=== PATIENT | male | born 1940 | race Caucasian/White ===

== ENCOUNTER 2021-12-15 13:00 | Outpatient (RCR) | payer MEDICARE, OTHER, SELFPAY ==
--- NOTE | 2021-11-26 10:15 | PT.OPEX ---
PT [place] Outpatient Eval PT [facility] Out[facility] Eval Start: 11/26/21 10:09 Freq: Status: Active Protocol: Document 11/26/21 10:09 MOISE (Rec: 11/26/21 10:11 MOISE [id number]) E-signed By Suhas Velasquez DPT, MS Physical Therapy Outpatient Evaluation Insurance Information Recert Due Date 02/24/22 Insurance Name Medicare B,[employer] Medical Diagnosis Generalized weakness/ deconditioning; stage 4 prostate cancer. Treating Diagnosis B LE and core weakness and deconditioning, decreased LS and LE flexibility and imbalance Subjective Subjective Pt is an 81 y.o. male who presents to PT with c/o chronic B (L>R) hip tightness, imbalance, deconditioning and LE weakness following treatment for stage 4 prostate CA with bladder and prostate beginning 03/11/2020. Had multiple rounds of intense chemo and radiation with continued oral chemo and hormone injections which have resulted in fatigue and B hip/ LS tightness. Has resumed yardwork and walking short distances with high levels of fatigue. Has a recumbent bike at home but has not used recently. Successful OT rx for LE lymphedema. Pt highly motivated to improve activity levels at an appropriate level as he was very active prior to CA treatment. PMH includes HTN. AGGR factors: all daily activities, lifting, carrying objects, walking, standing, stairs. ALLEV factors: rest, movement. Pain Comments 0-2/10 B hips Current Work Status Retired Objective Functional Test Performed & Score LEFS 18 Assessment Assessment/Impression Objectively pt displays B LE and core weakness and deconditioning, decreased B LS and LE flexibility and imbalance. Stable gait pattern without an AD with decreased velocity and increased B stride length. Emphasized importance of not pushing exercise and daily activities through fatigue or pain due to fatigue levels. He responded well to introduction to supine , seated and standing exercises with fatigue and minimal B hip pain following. He will benefit greatly from continued skilled therapy to address these limitations. Primary Functional Limitations All daily activities, lifting, carrying objects, walking, standing, stairs Plan of Care Rehabilitation Potential Excellent Physical Therapy Goals Short-term goals to be completed in 4 weeks 1. Pt will display improved B LE strength as evidenced by performing >12 SLR of good quality to improve quality of gait 2. Pt will be able to walk >8 min without elevation in sxs to improve cardiovascular health. Long-term goals to be completed in 12 weeks 1.Pt will be independent and compliant with HEP 2.Pt will display improved abdominal, B hip ABD and ext strength >/= 4+/5 to improve quality of gait and stair climbing. 3.Pt will be able to return to biking >15 minutes with no elevation in sxs to improve cardiovascular health. 4.Pt will report >75% in LEFS questionnaire to significantly improve tolerance to functional activities. Coordination/Communication With Referral Source Treatment Plan/Direct Interventions Joint Mobilization,Manual Therapy,Neuromuscular Re-ed, Therapeutic Exercises Frequency/Duration 1x per week for 4-8 visits, decreasing frequency as able. Patient Will Be Discharged From Therapy Completion of LTG(s),Skills Plateau,Independent w/HEP, Independently Progressing Evaluation Billing Untimed Code Treatment Minutes 22 Complexity Moderate Certification Information Initial Certification Date 11/26/21 Ending Certification Date 02/24/22 Provider Signature Shows Agreement With POC & Medical Necessity Physician Comment/Change Comment or Changes Physician NPI Number #
== END 2022-08-03 13:50 | disposition home or self-care (01) ==
PROVIDERS: PCP Family Medicine; Visit Provider Internal Medicine Hematology & Oncology
DX: I89.0 Lymphedema, not elsewhere classified (principal); Z51.89 Encounter for other specified aftercare
CPT/HCPCS: 97110; 97162; 97530; 97535

== ENCOUNTER 2022-02-08 17:55 | Emergency (ER) | payer MEDICARE, OTHER, SELFPAY ==
[2022-02-08 18:11] VITALS: BP 147/83; PULSE 71; RESP 16; TEMP 36.1; O2SAT 97; BMI 27.3
--- NOTE | 2022-02-08 19:10 | ED.NURSE ---
was obviously uncomfortable as he has not voided since this am (0700) before procedure. # 16 fr jon catheter was placed had bloody drainage noted. urine was red wine colored. had approx 600 ml. did feel better after this was placed.
[2022-02-08 20:05] LABS: Appearance Urine Slightly Cloudy (Clear); Bilirubin Urine 2+ (Negative); Blood Urine 3+ (Negative); Color Urine Red (Yellow); Glucose Urine Negative (Negative); Ketones Urine 1+ (Negative); Leukocyte Esterase Urine 3+ (Negative); Nitrite Urine Positive (Negative); Protein Urine 3+ (Negative); pH Urine 6.5 (5.0-8.5)
[2022-02-08 20:10] LABS: RBC Urine >100 (0-2)
[2022-02-08 20:11] LABS: Bacteria Urine Many; WBC Urine >100 (0-5)
[2022-02-08 20:12] VITALS: BP 158/85; PULSE 64; RESP 18; O2SAT 98
--- OUTSIDE RECORDS SUMMARY | 2022-02-08 20:12 | XMS_ITS | Encounter Summary ---
:1940 Author Organization [place] Address [address] [place] [address]. [place] [address] Care Team Providers Name Role Phone No Ref-Primary, Physician Primary Care Provider [phone] Reason for Visit Auth/Cert (Routine) Specialty Diagnoses / Procedures Referred By Contact Refer red To Contact Surgery Diagnoses Hydronephrosis Hydronephrosis [N13.30] Sh Periop Services Procedures HC CYSTO/URETERO W/LITHOTRIPSY &INDWELL STENT INSRT CYSTOSCOPY, RIGHT URETEROSCOPY, HOLMIUM LASER LITHOTRIPSY, RIGHT URETERAL STENT EXCHANGE [address], [address] [place] [address] Phone: Referral ID Status Reason Start Date Expiration Date Visits Requ ested Visits Authorized [id number] 1 1 Encounter Details Date Type Department Care Team Description 02/08/2022 Surgery [facility] Nicola Ware CYSTOSCOP Y, RIGHT [place] [facility] MD [place] RETROGRADE PYELOGRAM, Services [facility] URETHERAL DILATION, [address], [address] [facility] [place] [address] RIGHT URETERAL STENT [address] [place] [address] [place] [address] [phone] Surgery Details Date/Time Status Location OR Service Patient Case Class Case Tr auma Class Type Case? 02/08/22 9:10 Posted OR OR 19 Urology Same Day AM Surgery Panel 1 Procedure LRB Anes Op Region Wound Class Commen ts CYSTOSCOPY, RIGHT RETROGRADE Right General Urethra II-Malu n Contaminated PYELOGRAM, URETHERAL DILATION, RIGHT URETERAL STENT EXCHANGE Surgeon Surgeon Role Service Panel Nicola Ware MD Primary Urology 1 Special Needs LARGE C-ARM, HOLMIUM LASER, FLEXIBLE URE THEROSCOPE documented in this encounter Social History Tobacco Use Types Packs/Day Years Used Date Smoking Tobacco: Never Smokeless Tobacco: Never Tobacco Cessation: Counseling Given: Not Answered Alcohol Use Standard Drinks/Week Comments Not Currently 0 (1 standard drink = 0.6 oz pure alcoho l) Sex Assigned at Date Recorded Not on file COVID-19 Exposure Response Date Recorded In the last 10 days, have you been in contact with No / Unsu re 02/08/2022 7:59 AM CDT someone who was confirmed or suspected to have Coronavirus/COVID-19? documented as of this encounter Last Filed Vital Signs Vital Sign Reading Time Taken Comments Blood Pressure 155/84 02/08/2022 11:00 AM CDT Pulse 58 02/08/2022 11:00 AM CDT Temperature 36.1 ??C (97 ??F) 02/08/2022 11:00 AM CDT Respiratory Rate 16 02/08/2022 11:00 AM CDT Oxygen Saturation 98% 02/08/2022 11:00 AM CDT Inhaled Oxygen Concentration - - Weight 86.2 kg (190 lb 1.6 oz) 02/08/2022 7:50 AM CDT Height 177.8 cm (5' 10) 02/08/2022 7:50 AM CDT Body Mass Index 27.28 02/08/2022 7:50 AM CDT documented in this encounter Discharge Instructions Discharge InstructionsRae Colmenares RN - 02/08/2022 10:14 AM CDT Same Day Surgery Discharge Instructions for Sedation and General Anesthesia It's not unusual to feel dizzy, light-headed or faint for up to 24 hours after surgery or while taking pain medication. If you have these symptoms: sit for a few minutes before standing and have someone assist you when you get up to walk or use the bathroom. You should rest and relax for the next 24 hours. We recommend you make arrangements to have an adultstay with you for at least 24 hours after your discharge. Avoid hazardous and strenuous activity. DO NOT DRIVE any vehicle or operate mechanical equipment for 24 hours following the end of your surgery. Even though you may feel normal, your reactions may be affected by the medication you have received. Do not drink alcoholic beverages for 24 hours following surgery. Slowly progress to your regular diet as you feel able. It's not unusual to feel nauseated and/or vomit after receiving anesthesia. If you develop these symptoms, drink clear liquids (apple juice, elly enrrique, broth, 7-up, etc. ) until you feel better. If your nausea and vomiting persists for 24 hours, please notify your surgeon. All narcotic pain medications, along with inactivity and anesthesia, can cause constipation. Drinking plenty of liquids and increasing fiber intake will help. For any questions of a medical nature, call your surgeon. Do not make important decisions for 24 hours. If you had general anesthesia, you may have a sore throat for a couple of days related to the breathing tube used during surgery. You may use Cepacol lozenges to help with this discomfort. If it worsens or if you develop a fever, contact your surgeon. If you feel your pain is not well managed with the pain medications prescribed by your surgeon, please contact your surgeon's office to let them know so they can address your concerns. ZULEIKA Ware at bedside, pt ok to start Plavix tomorrow AttachmentsThe following attachments cannot be sent through Care Everywhere. Stents, Ureteral (Ivorian)documented in this encounter Medications at Time of Discharge Medication Sig Dispensed Refills Start Date End Date amLODIPine (NORVASC) 10 Take 10 mg by mouth 0 MG tablet daily cefuroxime (CEFTIN) 500 Take 1 tablet (500 10 tablet 0 01/1102/13/2022 MG tabletIndications: mg) by mouth 2 times Hydronephrosis with daily for 5 days urinary obstruction due to ureteral calculus clopidogrel (PLAVIX) 75 Take 75 mg by mouth 0 MG tablet daily co-enzyme Q-10 100 MG Take 100 mg by mouth 0 CAPS capsule daily enzalutamide (XTANDI) 40 Take 80 mg by mouth 0 MG capsule daily metoprolol succinate ER Take 50 mg by mouth 0 (TOPROL XL) 50 MG 24 hr daily tablet mirabegron (MYRBETRIQ) 25 Take 25 mg by mouth 0 MG 24 hr tablet daily nitroGLYcerin (NITROSTAT) Place 0.4 mg under 0 0.4 MG sublingual tablet the tongue every 5 minutes as needed for chest pain For chest pain place 1 tablet under the tongue every 5 minutes for 3 doses. If symptoms persist 5 minutes after 1st dose call 911. phenazopyridine Take 1 tablet (100 9 tablet 0 02/08/2022 (PYRIDIUM) 100 MG mg) by mouth 3 times tabletIndications: daily as needed for Hydronephrosis with urinary tract urinary obstruction due discomfort to ureteral calculus rivaroxaban ANTICOAGULANT Take 10 mg by mouth 0 (XARELTO) 10 MG TABS daily (with dinner) tablet rosuvastatin (CRESTOR) 40 Take 40 mg by mouth 0 MG tablet daily tamsulosin (FLOMAX) 0.4 Take 0.4 mg by mouth 0 MG capsule daily vitamin D3 Take 1 tablet by 0 (CHOLECALCIFEROL) 50 mcg mouth daily (2000 units) tablet documented as of this encounter H&P Notes Chinyere Tijerina MD - 02/08/2022 8:13 AM CDT I have reviewed the surgical (or preoperative) H&P that is linked to this encounter, and examined the patient. There are no significant changes Source Note - Outside, Provider - 02/03/2022 11:56 AM CDT documented in this encounter Nursing Notes Rafia Oleary RN - 02/08/2022 8:34 AM CDT Pt took Xarelto 10 days ago, pt unsure of when he last took his Plavix. Dr. Ware notified, ok to proceed. BREAKFAST COOK notified. Rafia Oleary RN - 02/08/2022 8:32 AM CDT Patient brought a picture of home covid antigen test on phone as directed. I personally saw this result and it was time stamped 02/07/2022 at 1821. Result was negative. documented in this encounter Miscellaneous Notes Op Note - Nicola Ware MD - 02/08/2022 9:27 AM CDT OPERATIVE REPORT PATIENT: José Miguel Vega : 1940, AGE: [age] year old SSN: (Not on file) SURGEON Nicola Ware MD Waist Cutter: Tomas Hampton RN Coin Teller: Darby Delaney RN Scrub Person: Barbara Hunt RN PREOP DIAGNOSIS: Right Hydronpehrosis POSTOP DIAGNOSIS: Same Procedure(s): URETHERAL DILATION CYSTOSCOPY RIGHT RETROGRADE PYELOGRAM RIGHT URETERAL STENT EXCHANGE ANESTHESIA General COMPLICATIONS: None FINDINGS Tight fossa navicularis but easily dilated to allow passage of the rigid cystoscope. 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 Minimal encrustation despite retained stent. SPECIMEN 1. Previous 6 Central African by 26 cm ureteral stent IMPLANT 1. Right-sided 6 Central African by 26 cm ureteral stent EBL 10 cc TECHNIQUE After informed consent was obtained within the preoperative care unit the patient was transferred tothe operative theater in stable condition. There he was transferred from his [facility] to the operative table and placed in supine position. Bilateral lower extremity sequential compression devices were applied and perioperative antibiotic prophylaxis was undertaken with cefazolin. After appropriate induction of general anesthesia the patient was repositioned to the dorsal lithotomy position bilateral lower extremities in Aleksey stirrups. His genitalia was then prepped and draped in the usual sterile fashion utilizing Betadine. At this point a surgical timeout was performed with all those in at tendance agreeing correct patient, procedure, and laterality. Initial attempt to advance the 22 [place] African rigid cystoscope proved unsuccessful due to stenosis of thefossa navicularis. Therefore I utilized Urethral sounds to dilate from 18 Central African to 26 Central African which easily allowed cystoscope to pass. A 22F rigid cystoscope was advanced to the level of the urinary bladder under direct visualization. No intraurethral masses or lesions were identified. The prostate was noted to be atrophied compared to previous and bilobar. Upon entry into the bladder, it was decompressed and re-evaluated under sterile saline irrigation. Bilateral ureteral orifices were identified within the orthotopic position. There were grade 1 trabeculations, no stones, and stent irritation were identified. The previously placed stent was noted to be emanating from the right ureteral orifice. Minimal encrustation along the intravesical loop. I then turned my attention to the right ureteral orifice. A Sensor guidewire was advanced proximallyunder fluoroscopic guidance adjacent to the previously placed ureteral stent. The scope was removed after emptying the bladder and readvanced. A toothed stent grasper was then used to secure the distalcurl and to remove it to the level of the urethral meatus under live fluoroscopic guidance. The proximal curl easily unraveled with no evidence of significant encrustation. A second sensor wire was then passed through the cannula of the stent and curled within the renal pelvis. The stent was removed and inspected with no evidence of damage. An open-ended catheter was then advanced over one of the wires to perform a retrograde pyelogram. On driller brake lining imaging there were no stones visible. Upon instillation of contrast no filling defects were seen though moderate persistent hydronephrosis was observed, sodecision was made to replace the ureteral stent. The remaining Sensor guidewire was back-loaded into the cystoscope. A new 6F x 26 cm ureteral stent was then deployed using a combination of direct vision and fluoroscopic guidance so that a generous curl was created within the renal pelvis and distal curl within the urinary bladder. The bladder was decompressed thus concluding the case. Patient tolerated the procedure well and without complication. EBL was 10 ml and all surgical counts were correct. The patient was repositioned to a supine position before being awoken from general anesthesia transferred back to his [facility] and discharged to the postanesthesia care unit in stable condition. PLAN Patient to be discharged home. We will plan to bring him back to the OR in 3 to 6 months for a retrograde pyelogram stent removal versus replacement. Nicola Ware MD [facility] Pager: [phone] Office: [phone] Surgical [phone] documented in this encounter Plan of Treatment Not on filedocumented as of this encounter Procedures Procedure Name Priority Date/Time Associated Diagnosis Comme nts XR SURGERY SAMANTA Routine 02/08/2022 9:45 AM Result s for this FLUORO LESS THAN 5 CDT procedure are in MIN W STILLS the results section. CYSTOURETEROSCOPY, 02/08/2022 8:58 AM Hydronephrosis WITH LITHOTRIPSY CDT USING LASER AND URETERAL STENT INSERTION Special Needs LARGE C-ARM, HOLMIUM LASER, FLEXIBLE URETHEROSCOPE documented in this encounter Results XR Surgery SAMANTA Fluoro Less Than 5 Min w Stills (02/08/2022 9:45 AM CDT) Anatomical Region Laterality Modality Abdomen/Pelvis Radio Fluoroscopy Specimen (Source) Anatomical Location Collection Method / Collectio n Time Received Time / Laterality Volume Impressions 02/08/2022 11:43 AM CDT IMPRESSION: Right ureteral stent in good position. Moderate hydronephrosis. No extravasation. EVELIA CROOK MD Narrative 02/08/2022 11:43 AM CDT SURGERY C-ARM FLUORO LESS THAN 5 MIN W STILLS February 08, 2022 9:45 AM HISTORY: Right retrograde and stent repl acement. COMPARISON: None. NUMBER OF IMAGES ACQUIRED: Three. VIEWS: One. FLUOROSCOPY TIME: .4 minute(s) Procedure Note Evelia Crook MD - 02/08/2022Fo rmatting of this note might be different from the original. SURGERY C-ARM FLUORO LESS THAN 5 MIN W S TILLS February 08, 2022 9:45 AM HISTORY: Right retrograde and stent repl acement. COMPARISON: None. NUMBER OF IMAGES ACQUIRED: Three. VIEWS: One. FLUOROSCOPY TIME: .4 minute(s) IMPRESSION: Right ureteral stent in good position. Moderate hydronephrosis. No extravasation. EVELIA CROOK MD Nicola Ware MD [facility]AG[facility] ORDER JUAN M documented in this encounter Visit Diagnoses Diagnosis Hydronephrosis with urinary obstruction due to ureteral calculus - Primary Hydronephrosis documented in this encounter Administered Medications Inactive Administered Medications - up to 3 most recent administrations Medication Order MAR Action Action Date Dose Rate Site acetaminophen (TYLENOL) tablet 650 mg 650 mg, Oral, ONCE PRN, mild pain, to mo derate pain, Starting on 02/08/22 at 1012, One time prior to discharge. Maxim um acetaminophen dose from all sources = 75 mg/kg/day not to exceed 4 grams/day. hydrOXYzine (ATARAX) tablet 10 mg 10 mg, Oral, ONCE PRN, anxiety, associat ed with pain or itching , Starting on Tue02/08/22 at 1012, For 1 dose, One time prior to discha rge iopamidol ([id number]) Given 02/08/2022 10:00 AM 12 mLs Operative Site/Surgical solution CDT Site PRN, Starting on Tue02/08/22 at 1000, Intra-procedure lactated ringers infusion Restarted 02/08/2022 9:08 AM CDT at 25 mL/hr, Intravenous, CONTINUOUS, IF patient NOT on dialysis., Pre-procedure, Starting on Tue02/08/22 at 0800, Until Tue02/08/22 at 1000 New Bag 02/08/2022 8:13 AM CDT 25 mL/hr lidocaine (XYLOCAINE) 2 % Given 02/08/2022 9:47 AM 1 Tube Operative Site/Surgical external gel CDT Site PRN, Starting on Tue02/08/22 at 0947, Intra-procedure documented in this encounter Active and Recently Administered Medications Times are shown in CDT. Scheduled Medication Order 02/06/2022 02/07/2022 02/08/2022 ceFAZolin Sodium (ANCEF) injection 2 g (COMPLETED) 0908 (Given - Provider: Rabia Durham APRN CRNA) Routine, 2 g, Intravenous, PRE-OP/PRE-ND OCEDURE, Starting on Tue02/08/22 at 0739, For 1 dose, Give first dose within 1 hour PRIOR to incision. If patient weight is greater than or equal to 120 kg incre ase dose to 3 g., Indications: Perioperative Pharmacop rophylaxis, Pre-procedure Continuous Medication Order 02/06/2022 02/07/2022 02/08/2022 lactated ringers infusion (CANCELED) 0813 (New Bag - Provider: Rafia Oleary RN)0907 (Paused - Provider: Rabia Durham APRN CRNA - Comment: Switch to gravity)0908 (Restarted - Provider: Rabia Durham APRN CRNA)0949 (Anesthesia Volume Adjustment - Provider: Rabia Durham APRN CRNA) at 25 mL/hr, Intravenous, CONTINUOUS, IF patient NOT on dialysis., Pre- procedure, Starting on Tue02/08/22 at 0800, Until Tue02/08/22 at 1000 PRN Medication Order 02/06/2022 02/07/2022 02/08/2022 acetaminophen (TYLENOL) tablet 650 mg 650 mg, Oral, ONCE PRN, mild pain, to mo derate pain, Starting on Tue02/08/22 at 1012, One time prior to discharge. Maximum acetaminophen dose from all sources = 75 mg/kg/day not to exceed 4 grams/day. hydrOXYzine (ATARAX) tablet 10 mg 10 mg, Oral, ONCE PRN, anxiety, associat ed with pain or itching , Starting on Tue02/08/22 at 1012, For 1 dose, One time prior to discharge iopamidol ([id number]) solution 1000 (Given - Provider: Nicola Ware MD) PRN, Starting on Tue02/08/22 at 1000, Intra-procedure lidocaine (XYLOCAINE) 2 % external gel (CANCELED) 0947 (Given - Provider: Nicola Ware MD) PRN, Starting on Tue02/08/22 at 0947, Intra-procedure documented in this encounter Care Teams Warp Tier Relationship Specialty Start Date End Date No Ref-Primary, Physician PCP - General 02/08/22 documented as of this encounter
--- OUTSIDE RECORDS SUMMARY | 2022-02-08 20:12 | XMS_ITS | Encounter Summary ---
:1939 Author Organization [facility] Address [address] [place] [address] Care Team Providers Name Role Phone Unavailable Primary Care Provider Unavailable Encounter Details Date Type Department Care Team Description 04/28/2020 Documentation Department of Radiation Swetha Soto, Oncology in [place], [place]., M.S. [place] [address] [facility] [address] [place] [phone] [phone] (Wo rk) Social History Tobacco Use Types Packs/Day Years Used Date Smoking Tobacco: Never Assessed Sex Assigned at Date Recorded Not on file documented as of this encounter Miscellaneous Notes Radiation Completion Notes - Swetha Soto P.A.-C., M.S. - 04/28/2020 11:59 PM CST DIAGNOSIS: 1. Primary Malignant Neoplasm Of Prostate (HCC) Attending Physician: Tereso Frazier M.D. ([id number]) Treatment Intent: Palliative Concomitant Therapy: Hormonal Therapy Single Plan Treatment Course: 1x Pelvis Plan ID Fractions Dose / Fraction (cGy) Dose Treated (cGy) Dose Planned (cGy) First Treatment Last Treatment Elapsed Days F1 prost, LNs 300 6000 6000 03/27/2020 04/28/2020 32 Course Summary 03/27/2020 04/28/2020 32 Radiation Modality: Photons CLINICAL SUMMARY Mr. Kalen Vega completed radiation treatment as planned with interruptions of 1 day due to weather. The course of treatment was tolerated well and with anticipated side effects. The patient experienced toxicities of grade 1 diarrhea, fecal incontinence, proctitis, urinary frequency, urinary inconti nence, and urinary urgency during radiation treatment. TREATMENT RESPONSE: Response to treatment will be determined by post-treatment imaging and/or laboratory work. RECOMMENDED FOLLOW UP: Primary Medical Oncologist. He has follow-up scheduled with Dr. Tan on May 07, 2020. Signed by: Swetha Soto P.A.-C., M.S., 04/29/2020 4:17 PM TENTERER [facility] [address] [place] [address] ERER documented in this encounter Plan of Treatment Not on filedocumented as of this encounter Visit Diagnoses Diagnosis Primary Malignant Neoplasm Of Prostate ( HCC) - Primary documented in this encounter
--- OUTSIDE RECORDS SUMMARY | 2022-02-08 20:12 | XMS_ITS | Encounter Summary ---
:1939 Author Organization [facility] Address [address] [place] [address] Care Team Providers Name Role Phone Unavailable Primary Care Provider Unavailable Reason for Visit Reason Comments Med Refill Encounter Details Date Type Department Care Team Description 04/14/2020 Refill Department of Radiation Swetha Soto P.A .-C., Med Refill Oncology in [facility] [address] [facility] [address] [place] [address] [place] [address] [phone] Social History Tobacco Use Types Packs/Day Years Used Date Smoking Tobacco: Never Assessed Sex Assigned at Date Recorded Not on file documented as of this encounter Plan of Treatment Not on filedocumented as of this encounter Visit Diagnoses Not on filedocumented in this encounter
--- OUTSIDE RECORDS SUMMARY | 2022-02-08 20:12 | XMS_ITS | Encounter Summary ---
:1939 Author Organization [facility] Address [address] [place] [address] Care Team Providers Name Role Phone Unavailable Primary Care Provider Unavailable Reason for Visit Radiation Therapy (Routine) - Closed Specialty Diagnoses / Procedures Referred By Contact Refer red To Contact Diagnoses Primary Malignant Neoplasm Of Prostate (HCC) Tereso Frazier M.D. [facility] Procedures Prior Auth Rad Tx [place] IMRT SIMPLE [address] [place] [address] Referral ID Status Reason Start Date Expiration Date Visits Requ ested Visits Authorized [id number] Closed 03/21/2020 03/21/2021 20 20 Encounter Details Date Type Department Care Team Description 04/08/2020 Hospital Encounter Department of Radiation Alisha Frazier, Oncology in [place] [address] [facility] [address] [place] [phone] Social History Tobacco Use Types Packs/Day Years Used Date Smoking Tobacco: Never Assessed Sex Assigned at Date Recorded Not on file documented as of this encounter Medications at Time of Discharge Medication Sig Dispensed Refills Start Date End Date amLODIPine (NORVASC) 10 mg Take 10 mg by 0 2019 tablet mouth. aspirin [address] tablet Take 81 mg by mouth 0 daily. atorvastatin (LIPITOR) 40 mg TK 1 T PO QHS 0 10/0 05/2019 tablet bicalutamide (CASODEX) 50 mg TK 1 T PO D 0 2019 tablet clopidogreL (PLAVIX) 75 mg TK 1 T PO QD 0 020 tablet metoprolol succinate Take 50 mg by 0 11/02/2019 (TOPROL-XL) 50 mg 24 hr mouth. tablet nitroglycerin (NITROSTAT) Place 0.4 mg under 0 0.4 mg SL tablet the tongue. documented as of this encounter Plan of Treatment Not on filedocumented as of this encounter Visit Diagnoses Not on filedocumented in this encounter
--- OUTSIDE RECORDS SUMMARY | 2022-02-08 20:12 | XMS_ITS ---
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 on 03/21/2020 Current Oncology Plans No current plan information found. Past Plans No past plan information found. Radiation Treatments Plan Last Treated Elapsed Days Fractions Prescribed Prescribed Total On Treated Fraction Dose Dose F1 prost, 04/28/2020 32 20 of 20 300 cGy 6,000 cGy LNs Reference Point Last Treated On Elapsed Days Session Dose Total Dos e [id number] 04/28/2020 32 300 cGy 6,000 cGy
--- OUTSIDE RECORDS SUMMARY | 2022-02-08 20:12 | XMS_ITS | Encounter Summary ---
:1939 Author Organization [facility] Address [address] [place] [address] Care Team Providers Name Role Phone Unavailable Primary Care Provider Unavailable Encounter Details Date Type Department Care Team Description 04/28/2020 Hospital Encounter Department of Radiation Alisha Frazier, Oncology in [facility] [address] [facility] [address] [place] [phone] [phone] Social History Tobacco Use Types Packs/Day Years Used Date Smoking Tobacco: Never Assessed Sex Assigned at Date Recorded Not on file documented as of this encounter Medications at Time of Discharge Medication Sig Dispensed Refills Start Date End Date amLODIPine (NORVASC) 10 Take 10 mg by 0 0 mg tablet mouth. aspirin [address] tablet Take 81 mg by mouth 0 daily. atorvastatin (LIPITOR) 40 TK 1 T PO QHS 0 020 mg tablet bicalutamide (CASODEX) 50 TK 1 T PO D 0 0 mg tablet clopidogreL (PLAVIX) 75 TK 1 T PO QD 0 12/27/2019 mg tablet metoprolol succinate Take 50 mg by 0 11/02/2019 (TOPROL-XL) 50 mg 24 hr mouth. tablet nitroglycerin (NITROSTAT) Place 0.4 mg under 0 0.4 mg SL tablet the tongue. tamsulosin (FLOMAX) 0.4 Take 1 capsule (0.4 30 capsule 0 07/202005/12/2020 mg 24 hr capsule mg total) by mouth daily. documented as of this encounter Plan of Treatment Not on filedocumented as of this encounter Visit Diagnoses Not on filedocumented in this encounter
--- OUTSIDE RECORDS SUMMARY | 2022-02-08 20:12 | XMS_ITS | Encounter Summary ---
:1939 Author Organization [facility] Address [address] [place] [address] Care Team Providers Name Role Phone Unavailable Primary Care Provider Unavailable Reason for Referral Radiation Therapy (Routine) - Canceled Specialty Diagnoses / Procedures Referred By Contact Refer red To Contact Diagnoses Primary Malignant Neoplasm Of Prostate (HCC) Tereso Frazier M.D. [facility] Procedures Management Visit [address] [place] [address] Referral ID Status Reason Start Date Expiration Date Visits V isits Requested Authorized [id number] Canceled 03/21/2020 03/21/2021 1 1 BILITATION INSPECTOR Reason for Visit Radiation Therapy (Routine) - Canceled Specialty Diagnoses / Procedures Referred By Contact Refer red To Contact Diagnoses Primary Malignant Neoplasm Of Prostate (HCC) Tereso Frazier M.D. [facility] Procedures Management Visit [address] [place] [phone] Referral ID Status Reason Start Date Expiration Date Visits V isits Requested Authorized [id number] Canceled 03/21/2020 03/21/2021 1 1 Encounter Details Date Type Department Care Team Description 04/09/2020 Hospital Encounter Department of Tereso Frazier Malignant Radiation Oncology [place]ver[place] Wray Neoplasm Of Prostate in [place], [address] [facility] (HCC) [place], [place] [address] [facility] [address] [place], [place] [phone] (Work) [phone] Social History Tobacco Use Types Packs/Day Years Used Date Smoking Tobacco: Never Assessed Sex Assigned at Date Recorded Not on file documented as of this encounter Last Filed Vital Signs Vital Sign Reading Time Taken Comments Blood Pressure - - Pulse - - Temperature 36.6 ??C (97.8 ??F) 04/09/2020 10:45 AM REHABILITATION INSPECTOR Respiratory Rate - - Oxygen Saturation - - Inhaled Oxygen Concentration - - Weight 86 kg (189 lb 9.5 oz) 04/09/2020 10:45 AM REHABILITATION INSPECTOR Height - - Body Mass Index 27.3 03/21/2020 8:19 AM REHABILITATION INSPECTOR documented in this encounter Medications at Time of Discharge Medication Sig Dispensed Refills Start Date End Date amLODIPine (NORVASC) 10 mg Take 10 mg by 0 2019 tablet mouth. aspirin [address] tablet Take 81 mg by mouth 0 daily. atorvastatin (LIPITOR) 40 mg TK 1 T PO QHS 0 05/2019 tablet bicalutamide (CASODEX) 50 mg TK 1 T PO D 0 2019 tablet clopidogreL (PLAVIX) 75 mg TK 1 T PO QD 0 020 tablet metoprolol succinate Take 50 mg by 0 11/02/2019 (TOPROL-XL) 50 mg 24 hr mouth. tablet nitroglycerin (NITROSTAT) Place 0.4 mg under 0 0.4 mg SL tablet the tongue. documented as of this encounter Progress Notes Swetha Soto P.A.-C., M.S. - 04/09/2020 10:45 AM CST SUBJECTIVE REASON FOR VISIT Evaluation for side effects while receiving radiation treatment for 1. Primary Malignant Neoplasm Of Prostate (HCC) SUPERVISED BY: Tereso Frazier M.D. ([phone]) HISTORY OF PRESENT ILLNESS Mr. Kalen Vega is an 79-year-old male with locally advanced prostate cancer. Treatment Course: 1x Pelvis Plan ID Fractions Dose / Fraction (cGy) Dose Treated (cGy) Dose Planned (cGy) First Treatment Last Treatment Elapsed Days F1 prost, LNs 300 2700 6000 03/27/2020 04/09/2020 13 Course Summary 03/27/2020 04/09/2020 13 The patient was seen and examined today with Dr. Frazier. The patient reports doing well overall. He denies fatigue. He is however experiencing persistent andincreased diarrhea. He reports 5-6 bowel movements during the day and 3 at night. He has fecal incontinence during the evening. He reports that the stool is watery or loose. The diarrhea started when the patient started radiation treatment. He has taken Imodium one tablet twice at night without benefit. He is not taking Imodium during the day as he is able to use the restroom during those times. He is also eating Activia yogurt. He reports increased urinary frequency as well, especially after treatment each day. He denies dizziness or lightheadedness. He is eating and drinking well overall. PATIENT REPORTED SYMPTOM SCREEN FATIGUE (Scale: 0 = no fatigue; 10 = worst fatigue you can imagine): 0 PAIN (Scale: 0 = no pain; 10 = worst pain you can imagine): 0 OVERALL QUALITY OF LIFE (Scale: 0 = as bad as can be; 10 = as good as can be): 9 OBJECTIVE Temp 36.6 ??C (Temporal) Wt 86 kg BMI 27.30 kg/m?? PHYSICAL EXAM General: Alert and oriented in no apparent distress. 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 Androgen deprivation therapy initiated on March 18, 2020 with Eligard and bicalutamide with a plan for the addition of Xtandi 4. Radiation therapy initiated on March 27, 2020; anticipated completion on April 25, 2020 The patient is tolerating radiation treatment well overall. He has experienced increased diarrhea aswell as urinary frequency with treatment. We discussed increasing his use of Imodium today. He has Imodium 2 mg tablets and the maximum is 16 mg/day. Dr. Frazier recommended taking two tablets at bedtime followed by one tablet after subsequent episodes of diarrhea, including during the day, to help get the diarrhea under control. The patient was educated on signs and symptoms of dehydration today. He was encouraged to continue with good nutritional and fluid intake. He is scheduled to start Xtandi on April 25, 2020 under the care of Dr. Tan; however, he might need 1-2 weeks of recovery after radiation treatment first. We will discuss this with his providers at the [facility]. We will schedule a nurse visit on Tuesday to re-evaluate his diarrhea. He will continue with radiation treatment as planned. Signed by: Swetha Soto P.A.-C., M.S. 04/09/2020 11:12 AM REHABILITATION INSPECTOR BILITATION INSPECTOR Associated attestation - Tereso Frazier M.D. - 04/09/2020 5:33 PM REHABILITATION INSPECTOR I saw and evaluated the patient and participated in the henderson portions of the service. I reviewed the documentation of Swetha Soto P.A.-C. and agree with the findings and plan. The patient appears well onexam. His right lower extremity swelling is decreasing. He does have loose stools. Encouraged him toincrease his Imodium usage. He is also scheduled to begin Xtandi on April 25, 2020 at the very endof his radiation treatment. He may need another week or 2 after this for recovery before initiation of Xtandi. I will leave this up to Dr. Tan. He will continue with treatment as planned. Signed by: Tereso Frazier M.D. 04/09/20 5:33 PM REHABILITATION INSPECTOR [facility] [place] documented in this encounter Miscellaneous Notes Addendum Note - Cherri Ng - 04/09/2020 10:45 AM REHABILITATION INSPECTOR Encounter addended by: Cherri Ng on: 04/14/2020 7:41 AM Actions taken: Letter saved BILITATION INSPECTOR documented in this encounter Plan of Treatment Scheduled Orders Name Type Priority Associated Diagnoses Order S chedule Management Visit Radiation Oncology Routine Primary Malignant Once for 1 Neoplasm Of Prostate Occurre nces starting (HCC) 04/09/2020 unti l 04/09/2020 documented as of this encounter Visit Diagnoses Diagnosis Primary Malignant Neoplasm Of Prostate ( HCC) documented in this encounter
--- OUTSIDE RECORDS SUMMARY | 2022-02-08 20:12 | XMS_ITS | Encounter Summary ---
:1939 Author Organization [facility] Address [address] [place] [address] Care Team Providers Name Role Phone Unavailable Primary Care Provider Unavailable Reason for Visit Radiation Therapy (Routine) - Closed Specialty Diagnoses / Procedures Referred By Contact Refer red To Contact Diagnoses Primary Malignant Neoplasm Of Prostate (HCC) Tereso Frazier M.D. [facility] Procedures Prior Auth Rad Tx [place] IMRT SIMPLE [address] [place] [address] Referral ID Status Reason Start Date Expiration Date Visits Requ ested Visits Authorized [id number] Closed 03/21/2020 03/21/2021 20 20 Encounter Details Date Type Department Care Team Description 04/21/2020 Hospital Encounter Department of Radiation Alisha Frazier, [place]cology in [place] [address] [facility] [address] [place] [phone] Social History Tobacco Use Types Packs/Day Years [...]
--- OUTSIDE RECORDS SUMMARY | 2022-02-08 20:12 | XMS_ITS | Encounter Summary ---
:1939 Author Organization [facility] Address [address] [place] [address] Care Team Providers Name Role Phone Unavailable Primary Care Provider Unavailable Reason for Referral Radiation Therapy (Routine) - Canceled Specialty Diagnoses / Procedures Referred By Contact Refer red To Contact Diagnoses Primary Malignant Neoplasm Of Prostate (HCC) Tereso Frazier M.D. [facility] Procedures Management Visit [address] [place] [phone] Referral ID Status Reason Start Date Expiration Date Visits V isits Requested Authorized [id number] Canceled 03/21/2020 03/21/2021 1 1 SHOE WORKER Reason for Visit Radiation Therapy (Routine) - Canceled Specialty Diagnoses / Procedures Referred By Contact Refer red To Contact Diagnoses Primary Malignant Neoplasm Of Prostate (HCC) Tereso Frazier M.D. [facility] Procedures Management Visit [address] [place] [phone] Referral ID Status Reason Start Date Expiration Date Visits V isits Requested Authorized [id number] Canceled 03/21/2020 03/21/2021 1 1 Encounter Details Date Type Department Care Team Description 04/16/2020 Hospital Encounter Department of Timothy Frazier M.D. [address] [place] [phone] Primary Malignant Radiation Oncology Iveth Alston M.D. [address] [place] [phone] Neoplasm Of Prostate in [place], ([facility]) [place] [address] [place] [phone] Social History Tobacco Use Types Packs/Day Years Used Date Smoking Tobacco: Never Assessed Sex Assigned at Date Recorded Not on file documented as of this encounter Last Filed Vital Signs Vital Sign Reading Time Taken Comments Blood Pressure - - Pulse - - Temperature 36.3 ??C (97.4 ??F) 04/16/2020 10:39 AM BACK SHOE WORKER Respiratory Rate - - Oxygen Saturation - - Inhaled Oxygen Concentration - - Weight 85.2 kg (187 lb 13.3 oz) 04/16/2020 10:39 AM BACK SHOE WORKER Height - - Body Mass Index 27.04 03/21/2020 8:19 AM BACK SHOE WORKER documented in this encounter Medications at Time [...] mouth daily. documented as of this encounter Progress Notes Iveth Alston M.D. - 04/16/2020 10:30 AM CST ATTESTATION FOR MANAGEMENT VISIT I saw and evaluated the patient and participated in the henderson portions of the service as noted below. I reviewed the documentation of Ms. Rufina Long RN and agree with the findings and plan. The patient appears well on exam. We will continue with radiation as planned and monitor weekly. Iveth Alston M.D., 04/16/2020 SUBJECTIVE REASON FOR VISIT Evaluation for side effects while receiving radiation treatment for 1. Primary Malignant Neoplasm Of Prostate (HCC) SUPERVISED BY: Dr. Alston HISTORY OF PRESENT ILLNESS Mr. Kalen Vega is an 79-year-old male with locally advanced prostate cancer. Treatment Course: 1x Pelvis Plan ID Fractions Dose / Fraction (cGy) Dose Treated (cGy) Dose Planned (cGy) First Treatment Last Treatment Elapsed Days F1 prost, LNs 300 3900 6000 03/27/2020 04/16/2020 20 Course Summary 03/27/2020 04/16/2020 20 The patient was seen and examined today with Dr. Frazier. The patient reports doing well overall. His diarrhea has improved and no episodes of diarrhea so fartoday. He took a total of 6 Imodium yesterday and none so far today. He did have 1 firm bowel movement today. He denies fevers, chills, dysuria, hematuria, bloating or new symptoms or falls or dizziness. He is being very mindful of fall precautions while on Flomax. He has taken 2 doses of Flomax so far and reports slight improvement in nocturia. He is not getting up 9 times as he was. He was able to be seen at [facility] and they are wrapping his right lower extremity. PATIENT REPORTED SYMPTOM SCREEN FATIGUE (Scale: 0 = no fatigue; 10 = worst fatigue you can imagine): 0 PAIN (Scale: 0 = no pain; 10 = worst pain you can imagine): 0 OVERALL QUALITY OF LIFE (Scale: 0 = as bad as can be; 10 = as good as can be): 9 OBJECTIVE Temp 36.3 ??C (Temporal) Wt 85.2 kg BMI 27.04 kg/m?? PHYSICAL EXAM General: Alert and oriented [...] patient is tolerating radiation treatment well overall. I reviewed Imodium instructions with patient again today. He is now scheduled for twice a week visits with [facility] in the month of April. He will continue on his current dosing of Flomax. He is to be mindful of all positional changes. He is scheduled to start Xtandi on April 25, 2020 under the care of Dr. Tan; however, hemight need 1-2 weeks of recovery after radiation treatment first. He will continue with radiation treatment as planned. Radiation Oncology [place] can be contacted at anytime for any questions or concerns. Signed by: Rufina Long R.N. 04/16/2020 11:09 AM BACK SHOE WORKER SHOE WORKER documented in this encounter Plan of Treatment Scheduled Orders Name Type Priority Associated Diagnoses Order S chedule Management Visit Radiation Oncology Routine Primary Malignant Once for 1 Neoplasm Of Prostate Occurre nces starting (HCC) 04/16/2020 unti l 04/16/2020 documented as of this encounter Visit Diagnoses Diagnosis Primary Malignant Neoplasm Of Prostate ( HCC) documented in this encounter
--- OUTSIDE RECORDS SUMMARY | 2022-02-08 20:12 | XMS_ITS | Encounter Summary ---
:1939 Author Organization [facility] Address [address] [place] [address] Care Team Providers Name Role Phone Unavailable Primary Care Provider Unavailable Encounter Details Date Type Department Care Team Description 04/14/2020 Clinical Communication Department of Iveth Alston Radiation Oncology in [place], [place] [address] [facility] [address] [place] [phone] Social History Tobacco Use Types Packs/Day Years Used Date Smoking Tobacco: Never Assessed Sex Assigned at Date Recorded Not on file documented as of this encounter Plan of Treatment Not on filedocumented as of this encounter Visit Diagnoses Not on filedocumented in this encounter
--- OUTSIDE RECORDS SUMMARY | 2022-02-08 20:12 | XMS_ITS | Encounter Summary ---
:1939 Author Organization [facility] Address [address] [place] [address] Care Team Providers Name Role Phone Unavailable Primary Care Provider Unavailable Reason for Visit Radiation Therapy (Routine) - Closed Specialty Diagnoses / Procedures Referred By Contact Refer red To Contact Diagnoses Primary Malignant Neoplasm Of Prostate (HCC) Tereso Frazier M.D. [facility] Procedures Prior Auth Rad Tx [place] IMRT SIMPLE [address] [place] [address] Referral ID Status Reason Start Date Expiration Date Visits Requ ested Visits Authorized [id number] Closed 03/21/2020 03/21/2021 20 20 Encounter Details Date Type Department Care Team Description 04/15/2020 Hospital Encounter Department of Radiation Alisha Frazier, [place]cology [place] [address] [facility] [address] [place] [phone] Social History Tobacco Use Types Packs/Day Years [...]
--- OUTSIDE RECORDS SUMMARY | 2022-02-08 20:12 | XMS_ITS | Encounter Summary ---
:1939 Author Organization [facility] Address [address] [place] [address] Care Team Providers Name Role Phone Unavailable Primary Care Provider Unavailable Reason for Visit Radiation Therapy (Routine) - Closed Specialty Diagnoses / Procedures Referred By Contact Refer red To Contact Diagnoses Primary Malignant Neoplasm Of Prostate (HCC) Tereso Frazier M.D. [facility] Procedures Prior Auth Rad Tx [place] IMRT SIMPLE [address] [place] [address] Referral ID Status Reason Start Date Expiration Date Visits Requ ested Visits Authorized [id number] Closed 03/21/2020 03/21/2021 20 20 Encounter Details Date Type Department Care Team Description 04/23/2020 Hospital Encounter Department of Radiation Alisha Frazier, [place]cology [place] [address] [facility] [address] [place] [phone] Social History Tobacco Use Types Packs/Day Years [...]
--- OUTSIDE RECORDS SUMMARY | 2022-02-08 20:12 | XMS_ITS | Encounter Summary ---
:1940 Author Organization [facility] Address [address] [place] [address] Care Team Providers Name Role Phone Unavailable Primary Care Provider Unavailable Encounter Details Date Type Department Care Team Description 11/25/2020 Orders Only [facility] Sa fredy Andrade M.D. [address] [place], [place] [phone] (Wo rk) Social History Tobacco Use Types Packs/Day Years Used Date Smoking Tobacco: Never Assessed Sex Assigned at Date Recorded Not on file documented as of this encounter Plan of Treatment Not on filedocumented as of this encounter Visit Diagnoses Not on filedocumented in this encounter
--- OUTSIDE RECORDS SUMMARY | 2022-02-08 20:12 | XMS_ITS | Encounter Summary ---
:1940 Author Organization [facility] Address [address] [place] [address] Care Team Providers Name Role Phone Unavailable Primary Care Provider Unavailable Reason for Visit Reason Comments Med Refill Encounter Details Date Type Department Care Team Description 05/11/2020 Refill Department of Radiation Swetha Soto P.A .-C., Med Refill Oncology in [facility] [address] [facility] [address] [place] [address] [place] [address] [phone] Social History Tobacco Use Types Packs/Day Years Used Date Smoking Tobacco: Never Assessed Sex Assigned at Date Recorded Not on file documented as of this encounter Plan of Treatment Not on filedocumented as of this encounter Visit Diagnoses Not on filedocumented in this encounter
--- OUTSIDE RECORDS SUMMARY | 2022-02-08 20:12 | XMS_ITS | Encounter Summary ---
:1940 Author Organization [facility] Address [address] [place] [address] Care Team Providers Name Role Phone Unavailable Primary Care Provider Unavailable Reason for Visit Reason Comments Follow-up Encounter Details Date Type Department Care Team Description 06/03/2020 Clinical Communication Department of Radiation Rufina Long, Follow-up Oncology in [facility] [address] [facility] [address] [place] [phone] Social History Tobacco Use Types Packs/Day Years Used Date Smoking Tobacco: Never Assessed Sex Assigned at Date Recorded Not on file documented as of this encounter Miscellaneous Notes Telephone Encounter - Rufina Long, R.N. - 06/03/2020 12:42 PM CST Information Discussed I called patient today to follow up after having completed radiotherapy to the prostate, seminal vesicles, sacrum and right pelvic sidewall 1 month ago. Patient reports that he is healing all together. His bowel and urinary incontinence and nocturia areboth improving. He denies dysuria and rectal bleeding. He does report intermittent hematuria that hehas been in communication with [facility] staff about. He plans to contact Urology if hematuria does not improve or worsens. He denies diarrhea. He is thankful for having gone through radiation and feels that he is healing well. He was able to receive his COVID-[address] [facility]. His??oncologic history is as follows: 1. September 28, 2011: ??PSA 4.75 ng/mL 2. February 29, 2020: ??The patient presented to Dr. Cesar Mccollum with a chief complaint of swelling of his penis and blood in the urine.?PSA 161.87 ng/mL. ??CT scan of the abdomen and pelvis urogram severe right hydronephrosis and hydroureter with marked distention of the right renal pelvis. ??Decreased enhancement of the right renal cortex along with thinning of the cortex. ??There was a large lobulated mass at the right ureterovesical junction measuring 4.5 x 3.3 x 6.0 cm which extended into the bladder lumen and obscured the border of the adjacent prostate. ??Right bladder wall thickeningwas present at the posterior aspect measuring up to 1.4 cm. ??Right lower pelvic adenopathy. ??Destructive lesion within the right side of the sacrum measuring 4.8 x 4.4 cm. ??Nonocclusive thrombus within a distended right external iliac vein in internal iliac vein with extension to the common iliac vein. ??CT scan of the chest demonstrated an enlarged 1.3 cm prevascular lymph node. ??No pulmonary met astasis seen. 3.??February 29, 2020 through March 03, 2020: ??Patient was admitted to [facility] 4. March 01, 2020: ??IVC filter placement and right nephrostomy tube placement.?Urine cytologywas negative for high-grade urothelial carcinoma. 5. March 02, 2020: ??MRI of the sacrum and coccyx demonstrated an approximately 8.5 x 7 x 10 cm malignant appearing soft tissue mass in the central and right lower pelvis. ??The mass abutted and obscured the prostate margins superiorly, laterally to the right, and posteriorly. ??The mass was contiguous with the posterior and right posterior lateral wall of the bladder. ??Nodular extension of the mass deformed or invaded the midline bladder base. ??Mass extended into the right pelvic sidewall softtissues where there was direct nodular extension of the mass versus right pelvic sidewall lymphadenop athy. ??A small portion of the mass extended along neurovascular planes toward the right sciatic notch and likely both sacral nerve roots. ??The mass abutted the anterior rectum. ??There was a 4.5 x 2.8 x 7 cm destructive lesion in the right sacrum extending from the S1 to the S5 levels. ??Extraosseous extension from the mass into the right S1, S2, S3, and S4 neural foramina. ??Extraosseous extensionfrom the mass to the medial aspect of the right piriformis muscle. ??There may be limited continuation between the extraosseous component of the sacral mass and the large pelvic mass. 6. March 03, 2020: ??CT-guided core biopsy of the right sacral mass was performed. ??Cytology waspositive for malignancy, consistent with prostate adenocarcinoma.?Nuclear medicine whole-body bone scan demonstrated that the lesion identified in the right sacrum was not apparent by scintigraphic imaging. ??Scattered degenerative type activity within the axial and appendicular skeleton. 7. March 05, 2020: ??Urology consultation with Dr. Nicola Ware who discussed the patient???s diagnosis of prostate cancer and that he will likely require a multimodal treatment plan including hormone deprivation. ??He would be happy to provide hormone deprivation and will await evaluation by his oncologist. ??Recommended maintaining percutaneous nephrostomy tube with changing every 6-12 weeks with interventional radiology. 8. March 12, 2020: ??Medical Oncology consultation with Dr. Mireya Tan who recommended initiating an aggressive systemic and local approach. ??The patient will start androgen deprivation therapy including Lupron/Eligard +??Casodex. ??Prior authorization on Xtandi was initiated. ??Prior authorization on Xgeva/denosumab was initiated. ??The patient was initiated on calcium and vitamin-D. ??She will request a PSA every 8 weeks to gauge response to treatment. ??Referral to Radiation Oncology. ??Ordered a brain MRI and consideration for an Axumin PET scan. 9. March 17, 2020: ??MRI of the brain demonstrated no radiographic evidence of acute intracranial abnormalities. ??Mild cerebral atrophy. ??Moderate supratentorial white matter changes that were nonspecific, but most likely related to small vessel ischemic disease. 10.??March 19, 2020: ??Androgen deprivation therapy was initiated with 22.5 mg Eligard and bicalutamide. 11. March 27, 2020 through April 25, 2020: Patient treated with intensity modulated radiotherapy to a dose of 6000 cGy to the prostate and seminal vesicles, to a dose of 5500 cGy to the sacrum andright pelvic sidewall and to a dose of 4400 cGy to the pelvic vessels in a total of 20 fractions. 12. May 14, 2020: PSA was 24 ng/mL. Patient received Xgeva and will continue to have Xgeva every4 weeks with lab work every 4 weeks: CBC and CMP. ?? PLAN Dr. Tan plans to see patient in the next 6 weeks with a repeat PSA. Since Dr. Tan is followingpatient closely, we will keep follow up with Dr. Frazier on an as needed basis only. Radiation Oncology [place] can be contacted at anytime for any questions or concerns. Disposition/Recommendation: self-care - appropriate at this time, patient encouraged to call back with questions Information/Education: patient/caller able to teach back Caller agreeable to plan of care: yes The following references were used: nursing clinical judgement and provider Dr. 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
--- OUTSIDE RECORDS SUMMARY | 2022-02-08 20:12 | XMS_ITS | Clinical Summary ---
:1940 Author Organization [facility] Address [address] [place] [address] Care Team Providers Name Role Phone Unavailable Primary Care Provider Unavailable Source Comments Patient records contain information from all sites at [facility]. For routine questions regarding patient records, call [phone] during business hours, M-F 8:00 AM - 5:00 PM Central Time. Record requests for emergency care only can be directed to [phone] at any time.[facility] Allergies No known active allergies Medications Medication Sig Dispensed Refills Start Date End Date Status amLODIPine (NORVASC) 10 Take 10 mg by 0 01/11/2020 Active mg tablet mouth. atorvastatin (LIPITOR) TK 1 T PO QHS 0 01/11/2020 Active 40 mg tablet bicalutamide (CASODEX) TK 1 T PO D 0 03/12/2020 Active 50 mg tablet clopidogreL (PLAVIX) 75 TK 1 T PO QD 0 12/27/2019 Active mg tablet metoprolol succinate Take 50 mg by 0 11/02/2019 Active (TOPROL-XL) 50 mg 24 hr mouth. tablet nitroglycerin Place 0.4 mg 0 11/02/2019 Ac tive (NITROSTAT) 0.4 mg SL under the tablet tongue. aspirin [address] tablet Take 81 mg by 0 Active mouth daily. tamsulosin (FLOMAX) 0.4 TAKE 1 30 capsule 0 06/10/2020 Active mg 24 hr capsule CAPSULE(0.4 MG) BY MOUTH DAILY Active Problems Problem Noted Date Lymphedema 03/21/2020 Primary Malignant Neoplasm Of Prostate 03/18/2020 Cancer Staging: Clinical stage from 02/10: Stage IVB (cT4, cN1, pM1b, PSA: 161.9) - Signed by Tereso Frazier M.D. 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 Pulse 64 03/21/2020 8:19 AM [employer]UR[employer] HISTORY TEACHER Temperature 36.5 ??C (97.7 ??F) 04/23/2020 10:24 AM [employer] HISTORY TEACHER Respiratory Rate - - Oxygen Saturation - - Inhaled Oxygen Concentration - - Weight 82.2 kg (181 lb 3.5 oz) 04/23/2020 10:24 AM CHUR[employer] HISTORY TEACHER Height 177.5 cm (5' 9.88) 03/21/2020 8:19 AM CHUR[employer] HISTORY TEACHER Body Mass Index 26.09 03/21/2020 8:19 AM CHURCH HISTORY TEACHER Plan of Treatment Health Maintenance Due Date Last Done Comments Pneumococcal vaccine (65+ years) 1946 (1 - PCV) Zoster Vaccines (1 of 2) 1959 Depression Screening (Annual 04/11/2021 PHQ-2) Fall Risk Screen (Annual) 04/11/2021 DTaP,Tdap,and Td Vaccines (3 - Td 09/07/2026 09/07/2016, or Tdap) COVID-19 Vaccine Completed 01/28/2022, 08/26/2021, 01/13/2021, Additional history exists Influenza Vaccine Completed 01/28/2022 Insurance Payer Benefit Plan / Subscriber ID Effective Dates Phone Addre ss Type Group MEDICARE MEDICARE A AND B [id number] 2004-Present [address] [place] [address]
--- OUTSIDE RECORDS SUMMARY | 2022-02-08 20:12 | XMS_ITS | Encounter Summary ---
:1940 Author Organization [facility] Address [address] [place] [address] Care Team Providers Name Role Phone Unavailable Primary Care Provider Unavailable Reason for Referral Outpatient (Routine) - Canceled Specialty Diagnoses / Procedures Referred By Contact Refer red To Contact Radiation Oncology Tereso Frazier M .D. [facility] [address] [phone] Referral ID Status Reason Start Date Expiration Date Visits V isits Requested Authorized [id number] Canceled 03/21/2020 03/21/2021 1 1 ECHNICIAN Reason for Visit Outpatient (Routine) - Canceled Specialty Diagnoses / Procedures Referred By Contact Refer red To Contact Radiation Oncology [facility] .[facility] [address] [phone] Referral ID Status Reason Start Date Expiration Date Visits V isits Requested Authorized [id number] Canceled 03/21/2020 03/21/2021 1 1 Encounter Details Date Type Department Care Team Description 04/14/2020 Hospital Encounter Department of Timothy Frazier M.D. [address] [place] [phone] Primary Malignant Radiation Oncology Rufina Long R.N. [address] [place] [phone] Neoplasm Of Prostate in [place], (HCC) (Primar y Dx) [place] [address] [place] [address] Social History Tobacco Use Types Packs/Day Years Used Date Smoking Tobacco: Never Assessed Sex Assigned at Date Recorded Not on file documented as of this encounter Last Filed Vital Signs Vital Sign Reading Time Taken Comments Blood Pressure - - Pulse - - Temperature 36.2 ??C (97.1 ??F) 04/14/2020 10:30 AM GEOTECHNICIAN Respiratory Rate - - Oxygen Saturation - - Inhaled Oxygen Concentration - - Weight 84.4 kg (186 lb 1.1 oz) 04/14/2020 10:30 AM GEOTECHNICIAN Height - - Body Mass Index 26.79 03/21/2020 8:19 AM GEOTECHNICIAN documented in this encounter Medications at Time [...] documented as of this encounter Progress Notes Rufina Long R.N. - 04/14/2020 10:30 AM CST SUBJECTIVE REASON FOR VISIT Diarrhea HISTORY OF PRESENT ILLNESS Mr. Kalen Vega is an 79-year-old male with locally advanced prostate cancer. Treatment Course: 1x Pelvis Plan ID Fractions Dose / Fraction (cGy) Dose Treated (cGy) Dose Planned (cGy) First Treatment Last Treatment Elapsed Days F1 prost, LNs [phone] 03/27/2020 04/14/2020 18 Course Summary 03/27/2020 04/14/2020 18 The patient was seen and examined today with Dr. Frazier. The patient reports that he is experiencing 6-8 episodes of diarrhea a day. He is taking 2 tablets of Imodium at bedtime. He is taking a total of 3-4 Imodium a day. He denies fevers, chills, bloating, dysuria, rectal bleeding or hematuria. He has been experiencing urinary frequency every 45-60 minutesat night time. I confirmed that he is not taking Flomax or Ibuprofen. He does take two Extra Strength Tylenol at bedtime for management of generalized aches and pains. He is following dietary recommendations for the management of diarrhea but did accidentally eat vegetables recently. He is trying to stay well hydrated and denies dizziness. OBJECTIVE Temp 36.2 ??C Wt 84.4 kg BMI 26.79 kg/m?? PHYSICAL EXAM General: Alert and oriented in no apparent distress. ASSESSMENT / PLAN I have reviewed today's visit with Swetha Soto PA-C today. Patient will trial taking 2 tablets of Imodium after first initial diarrhea of the day and then 1 tablet of Imodium after subsequent episode ofdiarrhea. He is to go up to a total of 8 tablets of Imodium a day as needed. He will continue to take 2 tablets of Imodium at bedtime. Swetha will initiate patient on Flomax. I have instructed patient totake 1 tablet after dinner in the evening to help with nocturia. I reviewed in detail the importanceof monitoring for dizziness. Extreme precaution with all positional changes and fall precautions were reviewed with patient today. Prescription will be sent to his preferred pharmacy today. He is to con tact our care team if he does experience dizziness while on Flomax. He will continue with radiation treatment as planned. Radiation Oncology [place] can be contacted at anytime for any questions or concerns. Signed by: Rufina Long R.N. 04/14/2020 1:11 PM GEOTECHNICIAN ECHNICIAN documented in this encounter Plan of Treatment Scheduled Referrals Name Type Priority Associated Order Schedule Diagnoses Radiation Oncology Outpatient Referral Routine On ce for 1 nurse visit Occurrences sta rting (clinic) 04/14/2020 unti l 04/14/2020 documented as of this encounter Visit Diagnoses Diagnosis Primary Malignant Neoplasm Of Prostate ( HCC) - Primary documented in this encounter
--- OUTSIDE RECORDS SUMMARY | 2022-02-08 20:12 | XMS_ITS | Encounter Summary ---
:1940 Author Organization [facility] Address [address] [place] [address] Care Team Providers Name Role Phone Unavailable Primary Care Provider Unavailable Reason for Referral Radiation Therapy (Routine) - Canceled Specialty Diagnoses / Procedures Referred By Contact Refer red To Contact Diagnoses Primary Malignant Neoplasm Of Prostate (HCC) Tereso Frazier M.D. [facility] Procedures Management Visit [address] [place] [address] Referral ID Status Reason Start Date Expiration Date Visits V isits Requested Authorized [id number] Canceled 03/21/2020 03/21/2021 1 1 WASHER BUSSER Reason for Visit Radiation Therapy (Routine) - Canceled Specialty Diagnoses / Procedures Referred By Contact Refer red To Contact Diagnoses Primary Malignant Neoplasm Of Prostate (HCC) Tereso Frazier M.D. [facility] Procedures Management Visit [address] [place] [phone] Referral ID Status Reason Start Date Expiration Date Visits V isits Requested Authorized [id number] Canceled 03/21/2020 03/21/2021 1 1 Encounter Details Date Type Department Care Team Description 04/23/2020 Hospital Encounter Department of Tereso Frazier Malignant Radiation Oncology [facility] Neoplasm Of Prostate in [place], [address] [facility] (HCC) [place], [place] [address] [facility] [address] [place], [place] [phone] (Work) [phone] Social History Tobacco Use Types Packs/Day Years Used Date Smoking Tobacco: Never Assessed Sex Assigned at Date Recorded Not on file documented as of this encounter Last Filed Vital Signs Vital Sign Reading Time Taken Comments Blood Pressure - - Pulse - - Temperature 36.5 ??C (97.7 ??F) 04/23/2020 10:24 AM DISHWASHER BUSSER Respiratory Rate - - Oxygen Saturation - - Inhaled Oxygen Concentration - - Weight 82.2 kg (181 lb 3.5 oz) 04/23/2020 10:24 AM DISHWASHER BUSSER Height - - Body Mass Index 26.09 03/21/2020 8:19 AM DISHWASHER BUSSER documented in this encounter Medications at Time [...] documented as of this encounter Progress Notes Tereso Frazier M.D. - 04/23/2020 10:30 AM CST SUBJECTIVE REASON FOR VISIT Evaluation for side effects while receiving radiation treatment for 1. Primary Malignant Neoplasm Of Prostate (HCC) SUPERVISED BY: Dr. Frazier HISTORY OF PRESENT ILLNESS Mr. Kalen Vega is an 79-year-old male with locally advanced prostate cancer. He is currently being treated with intensity modulated radiotherapy. Treatment Course: 1x Pelvis Plan ID Fractions Dose / Fraction (cGy) Dose Treated (cGy) Dose Planned (cGy) First Treatment Last Treatment Elapsed Days F1 prost, LNs [phone] 03/27/2020 04/23/2020 Course Summary 03/27/2020 04/23/2020 27 His oncologic history is as follows: 1. September 28, 2011: PSA 4.75 ng/mL 2. February 29, 2020: The patient presented to Dr. Cesar Mccollum with a chief complaint of swelling of his penis and blood in the urine. PSA 161.87 ng/mL. CT scan of the abdomen and pelvis urogram severe right hydronephrosis and hydroureter with marked distention of the right renal pelvis. Decreased enhancement of the right renal cortex along with thinning of the cortex. There was a large lobulatedmass at the right ureterovesical junction measuring 4.5 x 3.3 x 6.0 cm which extended into the bladder lumen and obscured the border of the adjacent prostate. Right bladder wall thickening was present at the posterior aspect measuring up to 1.4 cm. Right lower pelvic adenopathy. Destructive lesion within the right side of the sacrum measuring 4.8 x 4.4 cm. Nonocclusive thrombus within a distended right external iliac vein in internal iliac vein with extension to the common iliac vein. CT scan of thechest demonstrated an enlarged 1.3 cm prevascular lymph node. No pulmonary metastasis seen. 3. February 29, 2020 through March 03, 2020: Patient was admitted to [facility] 4. March 01, 2020: IVC filter placement and right nephrostomy tube placement. Urine cytology was negative for high-grade urothelial carcinoma. 5. March 02, 2020: MRI of the sacrum and coccyx demonstrated an approximately 8.5 x 7 x 10 cm malignant appearing soft tissue mass in the central and right lower pelvis. The mass abutted and obscured the prostate margins superiorly, laterally to the right, and posteriorly. The mass was contiguous with the posterior and right posterior lateral wall of the bladder. Nodular extension of the mass deformed or invaded the midline bladder base. Mass extended into the right pelvic sidewall soft tissues where there was direct nodular extension of the mass versus right pelvic sidewall lymphadenopathy. A small portion of the mass extended along neurovascular planes toward the right sciatic notch and likely both sacral nerve roots. The mass abutted the anterior rectum. There was a 4.5 x 2.8 x 7 cm destructive lesion in the right sacrum extending from the S1 to the S5 levels. Extraosseous extension from the mass into the right S1, S2, S3, and S4 neural foramina. Extraosseous extension from the mass to the medial aspect of the right piriformis muscle. There may be limited continuation between the extraosseous component of the sacral mass and the large pelvic mass. 6. March 03, 2020: CT-guided core biopsy of the right sacral mass was performed. Cytology was positive for malignancy, consistent with prostate adenocarcinoma. Nuclear medicine whole-body bone scan demonstrated that the lesion identified in the right sacrum was not apparent by scintigraphic imaging. Scattered degenerative type activity within the axial and appendicular skeleton. 7. March 05, 2020: Urology consultation with Dr. Nicola Ware who discussed the patient???s diagnosis of prostate cancer and that he will likely require a multimodal treatment plan including hormonedeprivation. He would be happy to provide hormone deprivation and will await evaluation by his oncologist. Recommended maintaining percutaneous nephrostomy tube with changing every 6-12 weeks with interventional radiology. 8. March 12, 2020: Medical Oncology consultation with Dr. Mireya Tan who recommended initiating an aggressive systemic and local approach. The patient will start androgen deprivation therapy including Lupron/Eligard + Casodex. Prior authorization on Xtandi was initiated. Prior authorization on Xg romeo/denosumab was initiated. The patient was initiated on calcium and vitamin-D. She will request a PSA every 8 weeks to gauge response to treatment. Referral to Radiation Oncology. Ordered a brain MRIand consideration for an Axumin PET scan. 9. March 17, 2020: MRI of the brain demonstrated no radiographic evidence of acute intracranial abnormalities. Mild cerebral atrophy. Moderate supratentorial white matter changes that were nonspecific, but most likely related to small vessel ischemic disease. 10. March 19, 2020: Androgen deprivation therapy was initiated with 22.5 mg Eligard and bicalutamide. 11. March 27, 2020 anticipated through April 25, 2020: Patient treated with intensity modulatedradiotherapy to a dose of 6000 cGy to the prostate and seminal vesicles, to a dose of 5500 cGy to the sacrum and right pelvic sidewall and to a dose of 4400 cGy to the pelvic vessels in a total of 20 fractions. The patient was seen and examined today with Dr. Frazier. The patient reports doing well overall. He did not experience any diarrhea in the past several days until starting last night and into today with a total of 4 episodes. He has taken 2 tablets of Imodium last night and again this morning; this has helped to calm down the diarrhea. He does notice slightrectal discomfort with the diarrhea. He denies hematuria, rectal bleeding, obstruction, dysuria, hotflashes or bone pain. He noticed slight blood with using clamp yesterday but none since. He wears depends for increased urinary incontinence with treatment and now some bowel incontinence as well. Urinary frequency and urgency are present. He is taking 1 Flomax in the evening and nocturia varies. In the early part of the night, nocturia at times can occur every 1 hour. He denies dizziness or falls while on Flomax. He was able to be seen at [facility] [place] and they are wrapping his right lower extremity. PATIENT REPORTED SYMPTOM SCREEN FATIGUE (Scale: 0 = no fatigue; 10 = worst fatigue you can imagine): 0 PAIN (Scale: 0 = no pain; 10 = worst pain you can imagine): 0 OVERALL QUALITY OF LIFE (Scale: 0 = as bad as can be; 10 = as good as can be): 7 OBJECTIVE Temp 36.5 ??C (Temporal) Wt 82.2 kg BMI 26.09 kg/m?? PHYSICAL EXAM General: Alert and oriented in no apparent distress. 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 Androgen deprivation therapy initiated on March 19, 2020 with 22.5 mg Eligard and bicalutamide with a plan for the addition of Xtandi 4. Radiation therapy initiated on March 27, 2020; anticipated completion on April 25, 2020 The patient is tolerating radiation treatment relatively well overall. I reviewed Imodium instructions with patient again today. He feels that he is able to work on staying well hydrated. He is now scheduled for twice a week visits with [facility] in the month of April. Patient reports that due to low calcium level, he has been instructed to hold Xtandi until May 07, 2020 when he seesDr. Tan in follow up care. I discussed with patient that radiation related side effects should start to heal 7-10 days after completing treatment and continue to heal in the coming weeks and month or two. I will call patient in 4-[address] weeks to check in[address] Dr. Frazier will keep follow up in Radiation Oncology on an as needed basis only. He will continue with radiation treatment as planned. Radiation Oncology [place] can be contacted at anytime for any questions or concerns. Patient stated a full understanding to the plan of care discussed today. Toxicities reviewed with Dr. Frazier today. Signed by: Rufina Long R.N. 04/23/2020 10:42 AM DISHWASHER BUSSER I saw and evaluated the patient and participated in the [place] portions of the service. I reviewed the documentation of Rufina Long R.N. and agree with the findings and plan. The patient appears well onexam. He is having worsening diarrhea. He will continue to utilize Imodium. He finishes on Tuesday. He has a follow-up visit with Dr. Tan on May 07, 2020. Rufina Long R.N. will contact him in 4-6 weeks to check on his progress. I will not schedule further formal follow-up in Radiation OncologyClinic. The patient verbalized satisfaction with this plan. He will continue with treatment as planned. Signed by: Tereso Frazier M.D. 04/23/2020 6:01 PM DISHWASHER BUSSER [facility] [address] [place] [address] WASHER BUSSER documented in this encounter Miscellaneous Notes Addendum Note - Cherri Ng - 04/23/2020 10:30 AM DISHWASHER BUSSER Encounter addended by: Cherri Ng on: 04/24/2020 8:39 AM Actions taken: Letter saved WASHER BUSSER documented in this encounter Plan of Treatment Scheduled Orders Name Type Priority Associated Diagnoses Order S chedule Management Visit Radiation Oncology Routine Primary Malignant Once for 1 Neoplasm Of Prostate Occurre nces starting (HCC) 04/23/2020 unti l 04/23/2020 documented as of this encounter Visit Diagnoses Diagnosis Primary Malignant Neoplasm Of Prostate ( HCC) documented in this encounter
--- OUTSIDE RECORDS SUMMARY | 2022-02-08 20:12 | XMS_ITS | Encounter Summary ---
:1940 Author Organization [facility] Address [address] [place] [address] Care Team Providers Name Role Phone Unavailable Primary Care Provider Unavailable Reason for Visit Radiation Therapy (Routine) - Closed Specialty Diagnoses / Procedures Referred By Contact Refer red To Contact Diagnoses Primary Malignant Neoplasm Of Prostate (HCC) Tereso Frazier M.D. [facility] Procedures Prior Auth Rad Tx [place] IMRT SIMPLE [address] [place] [address] Referral ID Status Reason Start Date Expiration Date Visits Requ ested Visits Authorized [id number] Closed 03/21/2020 03/21/2021 20 20 Encounter Details Date Type Department Care Team Description 04/24/2020 Hospital Encounter Department of Radiation Alisha Frazier, [place]cology [place] [address] [facility] [address] [place] [address] [phone] Social History Tobacco Use Types Packs/Day Years [...]
--- OUTSIDE RECORDS SUMMARY | 2022-02-08 20:12 | XMS_ITS | Encounter Summary ---
:1940 Author Organization [facility] Address [address] [place] [address] Care Team Providers Name Role Phone Unavailable Primary Care Provider Unavailable Reason for Visit Radiation Therapy (Routine) - Closed Specialty Diagnoses / Procedures Referred By Contact Refer red To Contact Diagnoses Primary Malignant Neoplasm Of Prostate (HCC) Tereso Frazier M.D. [facility] Procedures Prior Auth Rad Tx [place] IMRT SIMPLE [address] [place] [address] Referral ID Status Reason Start Date Expiration Date Visits Requ ested Visits Authorized [id number] Closed 03/21/2020 03/21/2021 20 20 Encounter Details Date Type Department Care Team Description 04/03/2020 Hospital Encounter Department of Radiation Alisha Frazier, [place]cology [place] [address] [facility] [address] [place] [id number] [phone] Social History Tobacco Use Types Packs/Day Years [...]
--- OUTSIDE RECORDS SUMMARY | 2022-02-08 20:12 | XMS_ITS | Encounter Summary ---
:1940 Author Organization [facility] Address [address] [place] [address]. [place] [address] Care Team Providers Name Role Phone No Ref-Primary, Physician Primary Care Provider [phone] Reason for Visit Auth/Cert (Routine) Specialty Diagnoses / Procedures Referred By Contact Refer red To Contact Surgery Diagnoses Hydronephrosis Hydronephrosis [N13.30] Sh Periop Services Procedures HC CYSTO/URETERO W/LITHOTRIPSY &INDWELL STENT INSRT CYSTOSCOPY, RIGHT URETEROSCOPY, HOLMIUM LASER LITHOTRIPSY, RIGHT URETERAL STENT EXCHANGE [address] [place] [address] Phone: Referral ID Status Reason Start Date Expiration Date Visits Requ ested Visits Authorized [id number] 1 1 Encounter Details Date Type Department Care Team Description 02/08/2022 Hospital Encounter [facility] Nicola Ware [facility] ronephrosis with Donald Spears MD urinary obstruction PreOP/Phase II [place] due to ureteral [address], UROLOGY [place] calculus (Primary Dx) [address] [place] [address] [place] [id number] Social History Tobacco Use Types Packs/Day Years [...] so they can address your concerns. ZULEIKA Kay : Chaz at bedside, pt ok to start Plavix tomorrow AttachmentsThe following attachments cannot be sent through Care Everywhere. Stents, Ureteral (Swiss)documented in this encounter Medications at Time of [...] Plavix. Dr. Ware notified, ok to proceed. [employer] notified. Rafia Oleary RN - 02/08/2022 8:32 [...] (Not on file) SURGEON Nicola Ware MD Cigar Head Piercer: Tomas Hampton RN Reservation Agent: Darby Delaney RN Scrub Person: Barbara Hunt [...] despite retained stent. SPECIMEN 1. Previous 6 Slovenian by 26 cm ureteral stent IMPLANT 1. Right-sided 6 Slovenian by 26 cm ureteral stent EBL 10 cc TECHNIQUE After informed consent was obtained within the preoperative care unit the patient was transferred tothe operative theater in stable condition. There he was transferred from his hospital [facility] to the operative table and placed in [...] laterality. Initial attempt to advance the 22 Slovenian rigid cystoscope proved unsuccessful due to stenosis of thefossa navicularis. Therefore I utilized Urethral sounds to dilate from 18 Slovenian to 26 Slovenian which easily allowed cystoscope to pass. A [...] wires to perform a retrograde pyelogram. On supervisor elementary education imaging there were no stones visible. Upon [...] general anesthesia transferred back to his hospital [facility] and discharged to the postanesthesia care unit in stable condition. PLAN Patient to be discharged home. We will plan to bring him back to the OR in 3 to 6 months for a retrograde pyelogram stent removal versus replacement. Nicola Ware MD [facility] Pager: [phone] Office: [phone] Surgical [phone] documented in this encounter Plan of Treatment [...] extravasation. EVELIA CROOK MD Nicola Ware MD [facility] DIAGNOSTIC IMAGING ORDER JUAN M documented in this encounter Visit Diagnoses Diagnosis Hydronephrosis with urinary obstruction due to ureteral calculus - Primary documented in this encounter Administered Medications Inactive [...] One time prior to discha rge iopamidol ([id number]) Given 02/08/2022 10:00 AM 12 mLs Operative Site/Surgical solution CDT Site PRN, Starting on Tue02/08/22 at 1000, Intra-procedure lactated ringers infusion Restarted 02/08/2022 9:08 AM CDT at 25 mL/hr, Intravenous, CONTINUOUS, IF patient NOT on dialysis., Pre-procedure, Starting on Tue02/08/22 at 0800, Until Tue02/08/22 at 1000 New Bag 02/08/2022 8:13 AM CDT 25 mL/hr documented in this encounter Active and Recently Administered Medications Times are shown in CDT. Scheduled Medication Order 02/06/2022 02/07/2022 02/08/2022 ceFAZolin Sodium (ANCEF) injection 2 g (COMPLETED) 0908 (Given - Provider: Rabia Durham APRN CRNA) Routine, 2 g, Intravenous, PRE-OP/PRE-MT OCEDURE, Starting on Tue02/08/22 at 0739, For [...] dose, One time prior to discharge iopamidol ([id number]) solution 1000 (Given - Provider: Nicola Ware MD) PRN, Starting on Tue02/08/22 at 1000, Intra-procedure lidocaine (XYLOCAINE) 2 % external gel (CANCELED) 0947 (Given - Provider: Nicola Ware MD) PRN, Starting on Tue02/08/22 at 0947, Intra-procedure documented in this encounter Care Teams Intellectual Property Counsel Relationship Specialty Start Date End Date No Ref-Primary, Physician PCP - General 02/08/22 documented as of this encounter
--- OUTSIDE RECORDS SUMMARY | 2022-02-08 20:12 | XMS_ITS | Encounter Summary ---
:1940 Author Organization [facility] Address [address] [place] [address] Care Team Providers Name Role Phone Unavailable Primary Care Provider Unavailable Reason for Visit Radiation Therapy (Routine) - Closed Specialty Diagnoses / Procedures Referred By Contact Refer red To Contact Diagnoses Primary Malignant Neoplasm Of Prostate (HCC) Tereso Frazier M.D. [facility] Procedures Prior Auth Rad Tx [place] IMRT SIMPLE [address] [place] [address] Referral ID Status Reason Start Date Expiration Date Visits Requ ested Visits Authorized [id number] Closed 03/21/2020 03/21/2021 20 20 Encounter Details Date Type Department Care Team Description 04/16/2020 Hospital Encounter Department of Radiation Alisha Frazier, [place]cology [place] [address] [facility] [address] [place] [address] [phone] Social History Tobacco Use Types Packs/Day Years [...]
--- OUTSIDE RECORDS SUMMARY | 2022-02-08 20:12 | XMS_ITS | Encounter Summary ---
:1940 Author Organization [facility] Address [address] [place] [address] Care Team Providers Name Role Phone Unavailable Primary Care Provider Unavailable Reason for Visit Radiation Therapy (Routine) - Closed Specialty Diagnoses / Procedures Referred By Contact Refer red To Contact Diagnoses Primary Malignant Neoplasm Of Prostate (HCC) Tereso Frazier M.D. [facility] Procedures Prior Auth Rad Tx [place] IMRT SIMPLE [address] [place] [address] Referral ID Status Reason Start Date Expiration Date Visits Requ ested Visits Authorized [id number] Closed 03/21/2020 03/21/2021 20 20 Encounter Details Date Type Department Care Team Description 04/10/2020 Hospital Encounter Department of Radiation Alisha Frazier, [place]cology [place] [address] [facility] [address] [place] [phone] Social History Tobacco Use Types Packs/Day Years [...]
--- OUTSIDE RECORDS SUMMARY | 2022-02-08 20:12 | XMS_ITS | Encounter Summary ---
:1940 Author Organization [facility] Address [address] [place] [address] Care Team Providers Name Role Phone Unavailable Primary Care Provider Unavailable Reason for Visit Radiation Therapy (Routine) - Closed Specialty Diagnoses / Procedures Referred By Contact Refer red To Contact Diagnoses Primary Malignant Neoplasm Of Prostate (HCC) Tereso Frazier M.D. [facility] Procedures Prior Auth Rad Tx [place] IMRT SIMPLE [address] [place] [address] Referral ID Status Reason Start Date Expiration Date Visits Requ ested Visits Authorized [id number] Closed 03/21/2020 03/21/2021 20 20 Encounter Details Date Type Department Care Team Description 04/17/2020 Hospital Encounter Department of Radiation Alisha Frazier, [place]cology [place] [address] [facility] [address] [place] [phone] [phone] Social History Tobacco Use Types Packs/Day Years [...]
--- OUTSIDE RECORDS SUMMARY | 2022-02-08 20:12 | XMS_ITS | Encounter Summary ---
:1940 Author Organization [facility] Address [address] [place] [address] Care Team Providers Name Role Phone Unavailable Primary Care Provider Unavailable Reason for Visit Reason Comments Med Refill Encounter Details Date Type Department Care Team Description 05/12/2020 Refill Department of Radiation Swetha Soto P.A .-C., Med Refill Oncology in [facility] [address] [facility] [address] [place] [address] [place] [address] [phone] Social History Tobacco Use Types Packs/Day Years Used Date Smoking Tobacco: Never Assessed Sex Assigned at Date Recorded Not on file documented as of this encounter Plan of Treatment Not on filedocumented as of this encounter Visit Diagnoses Not on filedocumented in this encounter
--- OUTSIDE RECORDS SUMMARY | 2022-02-08 20:12 | XMS_ITS | Encounter Summary ---
:1940 Author Organization [facility] Address [address] [place] [address] Care Team Providers Name Role Phone Unavailable Primary Care Provider Unavailable Reason for Visit Radiation Therapy (Routine) - Closed Specialty Diagnoses / Procedures Referred By Contact Refer red To Contact Diagnoses Primary Malignant Neoplasm Of Prostate (HCC) Tereso Frazier M.D. [facility] Procedures Prior Auth Rad Tx [place] IMRT SIMPLE [address] [place] [address] Referral ID Status Reason Start Date Expiration Date Visits Requ ested Visits Authorized [id number] Closed 03/21/2020 03/21/2021 20 20 Encounter Details Date Type Department Care Team Description 04/22/2020 Hospital Encounter Department of Radiation Alisha Frazier, [place]cology [place] [address] [facility] [address] [place] [address] [phone] Social History Tobacco Use Types Packs/Day Years [...]
--- OUTSIDE RECORDS SUMMARY | 2022-02-08 20:12 | XMS_ITS | Encounter Summary ---
:1940 Author Organization [facility] Address [address] [place] [address] Care Team Providers Name Role Phone Unavailable Primary Care Provider Unavailable Reason for Visit Radiation Therapy (Routine) - Closed Specialty Diagnoses / Procedures Referred By Contact Refer red To Contact Diagnoses Primary Malignant Neoplasm Of Prostate (HCC) Tereso Frazier M.D. [facility] Procedures Prior Auth Rad Tx [facility] [address] [place] [address] Referral ID Status Reason Start Date Expiration Date Visits Requ ested Visits Authorized [id number] Closed 03/21/2020 03/21/2021 20 20 Encounter Details Date Type Department Care Team Description 04/09/2020 Hospital Encounter Department of Radiation Alisha Frazier, [place]cology in [place] [address] [facility] [address] [place] [id number] [phone] Social History Tobacco Use Types Packs/Day Years [...]
--- OUTSIDE RECORDS SUMMARY | 2022-02-08 20:12 | XMS_ITS | Encounter Summary ---
:1940 Author Organization [facility] Address [address] [place] [address] Care Team Providers Name Role Phone Unavailable Primary Care Provider Unavailable Reason for Visit Reason Comments Med Refill Encounter Details Date Type Department Care Team Description 06/10/2020 Refill Department of Radiation Swetha Soto P.A .-C., Med Refill Oncology in [facility] [address] [facility] [address] [place] [address] [place] [address] [phone] Social History Tobacco Use Types Packs/Day Years Used Date Smoking Tobacco: Never Assessed Sex Assigned at Date Recorded Not on file documented as of this encounter Plan of Treatment Not on filedocumented as of this encounter Visit Diagnoses Not on filedocumented in this encounter
--- OUTSIDE RECORDS SUMMARY | 2022-02-08 20:12 | XMS_ITS | Encounter Summary ---
:1940 Author Organization [facility] Address [address] [place] [address] Care Team Providers Name Role Phone Unavailable Primary Care Provider Unavailable Reason for Visit Radiation Therapy (Routine) - Closed Specialty Diagnoses / Procedures Referred By Contact Refer red To Contact Diagnoses Primary Malignant Neoplasm Of Prostate (HCC) Tereso Frazier M.D. [facility] Procedures Prior Auth Rad Tx [facility] [address] [place] [address] Referral ID Status Reason Start Date Expiration Date Visits Requ ested Visits Authorized [id number] Closed 03/21/2020 03/21/2021 20 20 Encounter Details Date Type Department Care Team Description 04/07/2020 Hospital Encounter Department of Radiation Alisha Frazier, Oncology in [place] [address] [facility] [address] [place] [phone] Social History Tobacco Use Types Packs/Day Years [...]
--- OUTSIDE RECORDS SUMMARY | 2022-02-08 20:12 | XMS_ITS | Encounter Summary ---
:1940 Author Organization [facility] Address [address] [place] [address] Care Team Providers Name Role Phone Unavailable Primary Care Provider Unavailable Reason for Referral Radiation Therapy (Routine) - Canceled Specialty Diagnoses / Procedures Referred By Contact Refer red To Contact Diagnoses Primary Malignant Neoplasm Of Prostate (HCC) Tereso Frazier M.D. [facility] Procedures Management Visit [address] [place] [address] Referral ID Status Reason Start Date Expiration Date Visits V isits Requested Authorized [id number] Canceled 03/21/2020 03/21/2021 1 1 T CASTER Reason for Visit Radiation Therapy (Routine) - Canceled Specialty Diagnoses / Procedures Referred By Contact Refer red To Contact Diagnoses Primary Malignant Neoplasm Of Prostate (HCC) Tereso Frazier M.D. [facility] Procedures Management Visit [address] [place] [address] Referral ID Status Reason Start Date Expiration Date Visits V isits Requested Authorized [id number] Canceled 03/21/2020 03/21/2021 1 1 Encounter Details Date Type Department Care Team Description 04/02/2020 Hospital Encounter Department of Timothy Frazier M.D. [address] [place] [address] Primary Malignant Radiation Oncology Iveth Alston M.D. [address] [place] [address] Neoplasm Of Prostate in [place], (HCC) [place] [address] [place] [phone] Social History Tobacco Use Types Packs/Day Years Used Date Smoking Tobacco: Never Assessed Sex Assigned at Date Recorded Not on file documented as of this encounter Last Filed Vital Signs Vital Sign Reading Time Taken Comments Blood Pressure - - Pulse - - Temperature 36.3 ??C (97.3 ??F) 04/02/2020 11:03 AM INGOT CASTER Respiratory Rate - - Oxygen Saturation - - Inhaled Oxygen Concentration - - Weight 86.8 kg (191 lb 5.8 oz) 04/02/2020 11:03 AM INGOT CASTER Height - - Body Mass Index 27.55 03/21/2020 8:19 AM INGOT CASTER documented in this encounter Medications at Time [...] Progress Notes Swetha Soto P.A.-C., M.S. - 04/02/2020 10:45 AM CST SUBJECTIVE REASON FOR VISIT Evaluation for side effects while receiving radiation treatment for 1. Primary Malignant Neoplasm Of Prostate (HCC) SUPERVISED BY: Iveth Alston M.D. HISTORY OF PRESENT ILLNESS Mr. Kalen Vega is an 79-year-old male with locally advanced prostate cancer. Treatment Course: 1x Pelvis Plan ID Fractions Dose / Fraction (cGy) Dose Treated (cGy) Dose Planned (cGy) First Treatment Last Treatment Elapsed Days F1 prost, LNs 300 1500 6000 03/27/2020 04/02/2020 6 Course Summary 03/27/2020 04/02/2020 6 The patient was seen and examined today with Dr. Alston. The patient reports doing well overall. He has stable energy levels. He reports good urination. He has experienced diarrhea, on average 4 bowel movements per day. He denies rectal bleeding. He denies any other side effects from treatment at this time. PATIENT REPORTED SYMPTOM SCREEN FATIGUE (Scale: 0 = no fatigue; 10 = worst fatigue you can imagine): 0 PAIN (Scale: 0 = no pain; 10 = worst pain you can imagine): 0 OVERALL QUALITY OF LIFE (Scale: 0 = as bad as can be; 10 = as good as can be): 10 OBJECTIVE Temp 36.3 ??C (Temporal) Wt 86.8 kg BMI 27.55 kg/m?? PHYSICAL EXAM General: Alert and oriented in no apparent distress. ASSESSMENT / PLAN 1. 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 He has experienced diarrhea. We re-reviewed recommendations for management including use of pro- biotics and Imodium. He is going to try Activia yogurt. We discussed starting with a single or half dose of Imodium to see how his body responds. He will continue with radiation treatment as planned. Signed by: Swetha Soto P.A.-C., M.S. 04/02/2020 11:21 AM INGOT CASTER T CASTER Associated attestation - Iveth Alston M.D. - 04/02/2020 1:32 PM INGOT CASTER I saw and evaluated the patient and participated in the henderson portions of the service. I reviewed the documentation of Ms. Swetha Soto PA-C, MS and agree with the findings and plan. The patient appears well on exam. We will continue with radiation as planned and monitor weekly. Iveth Alston M.D., 04/02/2020 documented in this encounter Plan of Treatment Scheduled Orders Name Type Priority Associated Diagnoses Order S chedule Management Visit Radiation Oncology Routine Primary Malignant Once for 1 Neoplasm Of Prostate Occurre nces starting (HCC) 04/02/2020 unti l 04/02/2020 documented as of this encounter Visit Diagnoses Diagnosis Primary Malignant Neoplasm Of Prostate ( HCC) documented in this encounter
--- OUTSIDE RECORDS SUMMARY | 2022-02-08 20:12 | XMS_ITS | Encounter Summary ---
:1940 Author Organization [facility] Address [address] [place] [address] Care Team Providers Name Role Phone Unavailable Primary Care Provider Unavailable Encounter Details Date Type Department Care Team Description 04/29/2020 Clinical Communication Department of Radiation Rufina Long, Oncology in [facility] [address] [facility] [address] [place] [phone] Social History Tobacco Use Types Packs/Day Years Used Date Smoking Tobacco: Never Assessed Sex Assigned at Date Recorded Not on file documented as of this encounter Miscellaneous Notes Telephone Encounter - Rufina Long, R.Mari. - 04/29/2020 11:06 AM CST ASSESSMENT Patient called to report that he took 2 Imodium tablets at bedtime and then had an episode of diarrhea soon afterwards. He then took 2 more tablets of Imodium. He struggled with diarrhea all night and had a total of 6 episodes. He is trying to stay well hydrated. He tries to increase hydration during the day and not push fluids in the evening due to diarrhea. He denies dizziness, lightheadedness or falls. PLAN I have discussed with Swetha Soto PA-C today. We will hold off on Lomotil prescription as there is a warning not to prescribe to individuals over 65. Patient is to take 1 Imodium in the morning, 1-2 Imodium in the afternoon and 2 Imodium at bedtime. He can take an additional tablet of Imodium after episode of diarrhea but no more than a total of 8 Imodium tablets a day. We discussed staying well hydrated today and to call me if signs of dehydration develop. He will call our care team for any questions or concerns. Disposition/Recommendation: self-care - appropriate at this time, patient encouraged to call back with questions. Information/Education: patient/caller able to teach back. Caller agreeable to plan of care: yes. The following references were used: nursing clinical judgement and provider Swetha Soto PA-C. E CONTROL AGENT documented in this encounter Plan of Treatment Not on filedocumented as of this encounter Visit Diagnoses Not on filedocumented in this encounter
--- OUTSIDE RECORDS SUMMARY | 2022-02-08 20:12 | XMS_ITS | Encounter Summary ---
:1940 Author Organization [facility] Address [address] [place] [address] Care Team Providers Name Role Phone Unavailable Primary Care Provider Unavailable Reason for Visit Radiation Therapy (Routine) - Closed Specialty Diagnoses / Procedures Referred By Contact Refer red To Contact Diagnoses Primary Malignant Neoplasm Of Prostate (HCC) Tereso Frazier M.D. [facility] Procedures Prior Auth Rad Tx [place] IMRT SIMPLE [address] [place] [address] Referral ID Status Reason Start Date Expiration Date Visits Requ ested Visits Authorized [id number] Closed 03/21/2020 03/21/2021 20 20 Encounter Details Date Type Department Care Team Description 04/18/2020 Hospital Encounter Department of Radiation Alisha Frazier, Oncology in [place] [address] [facility] [address] [place] [phone] Social History Tobacco Use Types Packs/Day Years [...]
--- OUTSIDE RECORDS SUMMARY | 2022-02-08 20:12 | XMS_ITS | Encounter Summary ---
:1940 Author Organization [facility] Address [address] [place] [address] Care Team Providers Name Role Phone No Ref-Primary, Physician Primary Care Provider [phone] Encounter Details Date Type Department Care Team Description 02/08/2022 Travel Social History Tobacco Use Types Packs/Day Years Used Date Smoking Tobacco: Never Smokeless Tobacco: Never Alcohol Use Standard Drinks/Week Comments Not Currently 0 (1 standard drink = 0.6 oz pure alcoho l) Sex Assigned at Date Recorded Not on file COVID-19 Exposure Response Date Recorded In the last 10 days, have you been in contact with No / Unsu re 02/08/2022 7:59 AM CDT someone who was confirmed or suspected to have Coronavirus/COVID-19? documented as of this encounter Plan of Treatment Not on filedocumented as of this encounter Visit Diagnoses Not on filedocumented in this encounter Care Teams Plsql Developer Relationship Specialty Start Date End Date No Ref-Primary, Physician PCP - General 02/08/22 documented as of this encounter
--- OUTSIDE RECORDS SUMMARY | 2022-02-08 20:12 | XMS_ITS | Clinical Summary ---
:1940 Author Organization [facility] Address [address] [place] [address] Care Team Providers Name Role Phone No Ref-Primary, Physician Primary Care Provider [phone] Allergies No known active allergies Medications Medication Sig Dispensed Refills Start End Date Status Date amLODIPine Take 10 mg by 0 Activ e (NORVASC) 10 MG mouth daily tablet vitamin D3 Take 1 tablet 0 Activ e (CHOLECALCIFEROL) by mouth daily 50 mcg (2000 units) tablet clopidogrel Take 75 mg by 0 Acti ve (PLAVIX) 75 MG mouth daily tablet co-enzyme Q-10 100 Take 100 mg by 0 Active MG CAPS capsule mouth daily enzalutamide Take 80 mg by 0 Act aditya (XTANDI) 40 MG mouth daily capsule metoprolol Take 50 mg by 0 Activ e succinate ER mouth daily (TOPROL XL) 50 MG 24 hr tablet mirabegron Take 25 mg by 0 Activ e (MYRBETRIQ) 25 MG mouth daily [address] 0.4 mg 0 Act aditya (NITROSTAT) 0.4 MG under the sublingual tablet tongue every 5 minutes as needed for chest pain For chest pain place 1 tablet under the tongue every 5 minutes for 3 doses. If symptoms persist 5 minutes after 1st dose call 911. rosuvastatin Take 40 mg by 0 Act aidtya (CRESTOR) 40 MG mouth daily tablet tamsulosin (FLOMAX) Take 0.4 mg by 0 Active 0.4 MG capsule mouth daily rivaroxaban Take 10 mg by 0 Acti ve ANTICOAGULANT mouth daily (XARELTO) 10 MG (with dinner) TABS tablet phenazopyridine Take 1 tablet 9 tablet 0 Active (PYRIDIUM) 100 MG (100 mg) by 2 tabletIndications: mouth 3 times Hydronephrosis with daily as urinary obstruction needed for due to ureteral urinary tract calculus discomfort cefuroxime (CEFTIN) Take 1 tablet 10 tablet 0 Active 500 MG (500 mg) by 2 22 tabletIndications: mouth 2 times Hydronephrosis with daily for 5 urinary obstruction days due to ureteral calculus aspirin 81 MG EC Take 81 mg by 0 02/09/20 Discontinued tablet mouth daily 22 (Medicat ion Reconcilia tion Clean Up) benzonatate Take 200 mg by 0 02/09/20 Dis continued (TESSALON) 200 MG mouth 3 times 22 (Medication capsule daily as Reconcilia tion needed for Clean Up) cough Encounters Date Type Specialty Care Team Description 02/08/2022 Surgery Surgery Nicola Ware CYSTOSCOPY, RI DILMA Spears MD RETROGRADE PYEL OGRAM, URETHERAL DILAT ION, RIGHT URETERAL STENT EXCHANGE 02/08/2022 Anesthesia Event Surgery Lilliana, MD Sherrie Etienne [place], MD 02/08/2022 Hospital Encounter Surgery Nicola Ware Hydronep hrosis with MD Regan urinary obstruc tion due to ureteral pilo culus (Primary Dx) 02/08/2022 Travel from Last 3 Months Social History Tobacco Use Types Packs/Day Years [...] was confirmed or suspected to have Coronavirus/COVID-19? Last Filed Vital Signs Vital Sign Reading [...] Mass Index 27.28 02/08/2022 7:50 AM CDT Plan of Treatment Health Maintenance Due Date Last Done Comments ADVANCE CARE PLANNING 1940 ANNUAL REVIEW OF HM ORDERS 1940 HEPATITIS B IMMUNIZATION (1 1940 of 3 - 3-dose series) ZOSTER IMMUNIZATION (1 of 1989 2) FALL RISK ASSESSMENT 2004 Pneumococcal Vaccine: 65+ 2004 Years (1 - PCV) PHQ-2 (once per calendar 04/11/2021 year) MEDICARE ANNUAL WELLNESS 01/28/2023 01/28/2022, 11/20/2020 VISIT DTAP/TDAP/TD IMMUNIZATION 09/07/2026 09/07/2016, 03/26/2003 (2 - Td or Tdap) COVID-19 Vaccine Completed 01/28/2022, 08/26/2021, 01/13/2021, Additional history exists INFLUENZA VACCINE Completed 01/28/2022 IPV IMMUNIZATION Aged Out No longer eligi ble based on patient 's age to complete this topic MENINGITIS IMMUNIZATION Aged Out No longe r eligible based on patient 's age to complete this topic Medical Devices Implanted Type Area Commodity Specialist Device Identifier Shelf Model / Expiration Serial / Date Lot Stent Ureteral Polaris Ultra [id number] - [id number] S tent Right: KILLEEN [id number] 10/08/2024 [id number] / Implanted: Qty: 1 on 02/08/2022 by Nicola Ware MD at [facility] [employer] / [id number] Explanted Type Area Commodity Specialist Device Shelf Model / Identifier Expiration Date Ser ial / Lot Stent Came Out Of The Right Ureter Right: Explanted: Qty: 1 on 02/08/2022 by Nicola Ware MD at [facility] Urethra Procedures Procedure Name Priority Date/Time Associated Diagnosis Comme nts XR SURGERY SAMANTA Routine 02/08/2022 9:45 Results f or this FLUORO LESS THAN 5 AM CDT procedure are in MIN W STILLS the results section. ANE AIRWAY Routine 02/08/2022 9:25 Results for this SUPRAGLOTTIC AM CDT procedure are i n PERFORMABLE the results section. CYSTOURETEROSCOPY, 02/08/2022 8:58 Hydronephrosis WITH LITHOTRIPSY AM CDT USING LASER AND URETERAL STENT INSERTION Special Needs LARGE C-ARM, HOLMIUM LASER, FLEXIBLE URETHEROSCOPE from Last 3 Months Results XR Surgery SAMANTA Fluoro Less Than [...] extravasation. EVELIA CROOK MD Nicola Ware MD IMG DIAGNOSTIC IMAGING ORDER JUAN M ANE AIRWAY SUPRAGLOTTIC PERFORMABLE (02/08/2022 9:25 AM CDT) Narrative Rabia Durham APRN DIRECTOR OF SPEECH PATHOLOGY - 02/08/2022 9:25 AM CDT Rabia Durham APRN DIRECTOR OF SPEECH PATHOLOGY ? 02/08/2022 ??9:26 AM Airway ? Patient location during procedure : OR Staff - ? Anesthesiologist: ??LillianaMagda MD ? DIRECTOR OF SPEECH PATHOLOGY: Rabia Durham APRN DIRECTOR OF SPEECH PATHOLOGY ? Performed By: DIRECTOR OF SPEECH PATHOLOGY Consent for Airway ? Urgency: elective Indications and Patient Condition ? Indications for airway management : leslee-procedural ? Induction type:intravenous ? Mask difficulty assessment: 2 - v ent by mask + OA or adjuvant +/- NMBA Final Airway Details ? Final airway type: supraglottic a irway Supraglottic Airway Details ? Type: LMA ? Brand: Ambu AuraGain ? LMA size: 5 Post intubation assessment ? Placement verified by: capnometry , equal breath sounds and chest rise ? Number of attempts at approach: 2 (1st attempt with I-Gel 5, unable to seat) ? Secured with: pink tape ? Ease of procedure: easy ? Dentition: Unchanged and Intact Chinyere Tijerina MD [place] ANESTHESIA from Last 3 Months Insurance Payer Benefit Plan / Subscriber ID Effective Phone Address T ype Group Dates MEDICA MEDICA PRIME [id number] 2022-Pres [phone] [address] [address] Indemnity SOLUTION ent [address] [id number] [address] MEDICARE MEDICARE FOR HB [id number] 2004-Prese [phone] ATTN CLAIMS Medicare SUPPLEMENT nt 40 [address] [place] [address] Care Teams Cone Marker Relationship Specialty Start Date End Date No Ref-Primary, Physician PCP - General 02/08/22
--- OUTSIDE RECORDS SUMMARY | 2022-02-08 20:12 | XMS_ITS | Encounter Summary ---
:1940 Author Organization [facility] Address [address] [place] [address] Care Team Providers Name Role Phone No Ref-Primary, Physician Primary Care Provider [phone] Reason for Visit Auth/Cert (Routine) Specialty Diagnoses / Procedures Referred By Contact Refer red To Contact Surgery Diagnoses Hydronephrosis Hydronephrosis [N13.30] Sh Periop Services Procedures HC CYSTO/URETERO W/LITHOTRIPSY &INDWELL STENT INSRT CYSTOSCOPY, RIGHT URETEROSCOPY, HOLMIUM LASER LITHOTRIPSY, RIGHT URETERAL STENT EXCHANGE [address], [address] [place] [address] Phone: Referral ID Status Reason Start Date Expiration Date Visits Requ ested Visits Authorized [id number] 1 1 Encounter Details Date Type Department Care Team Description 02/08/2022 Anesthesia Event [facility] Magda Tijerina MD [facility] ANESTHESIA [address] [place] [id number] [facility] PeriOP Moe Balderas MD [facility] ANESTHESIOLOGISTS [facility] [address] [id number] Services [address], [address] [place] [address] Anesthesia Record Procedure Summary Procedure Name Responsible Anesthesia Start Anesthesia Stop Anesthesiologist Time Time CYSTOSCOPY, RIGHT Chinyere Tijerina MD 02/08/22 0908 02/08 1003 RETROGRADE PYELOGRAM, URETHERAL DILATION, RIGHT URETERAL STENT EXCHANGE (Right: Urethra) Events Date Time Event Comment 02/08/2022 0814 0908 An Start 0909 An Start Data 0909 AN REASSESS I attest that I have identified and re-evaluated the patient immediat amy before the induction of anesthesia and I am satisfi ed that the anesthetic plan is suitable for the patient' s condition and procedure. The first vital signs martha rded are pre- induction. ARUN Sanders A 0912 An Induction 0917 An LMA 0927 AN INCISION 0954 LMA Removed 0956 an stop data 1003 An Stop Electronically s igned by Rabia Durham APRN CRNA on February 08, 2022 10:03 AM Name Total dexamethasone 4mg/mL 4 mg fentaNYL (SUBLIMAZE) injection 100 mcg lidocaine 2% 100 mg ondansetron 2mg/mL 4 mg propofol (DIPRIVAN) injection 10 mg/mL vial 160 mg propofol infusion (mcg/kg/min) 46.55 mg ceFAZolin Sodium (ANCEF) injection 2 g 2 g lactated ringers infusion 650 mL Agents Name NO HELIOX O2 N2O Air Exp Sevoflurane Exp Isoflurane Exp Desflurane Exp N2O O2 Delivery Device Ins Sevoflurane Ins Isoflurane Ins Desflurane O2 Auxiliary Blood No blood administrations on file. Lines, Drains, and Airways Type Details Placement Removal Peripheral IV 02/08/22; 0810; 20 G; 02/08/22 0810 by 02/08/22 1130 by Right; Hand; Rafia Oleary, RN Terrie Moss, Chlorhexidine; RN Tolerated well Supraglottic Airway Placement Date: 02/08/22 09 by 02/08/22 09 54 by 02/08/22; Placement Rabia Durham APRN Miller, Rebecca, Time: 925 (created via GAVIN HELTON A procedure documentation); Airway Type: Standard LMA; Mask Ventilation: 2; LMA Size: 5; Airway Brand: Ambu AuraGain; Attempts: 2 (1st attempt with I-Gel 5, unable to seat) documented in this encounter Social History Tobacco [...] have Coronavirus/COVID-19? documented as of this encounter OR Notes Anesthesia Postprocedure Evaluation - Chinyere Tijerina MD - 02/08/2022 12:24 PM CDT Patient: José Miguel Vega Procedure: Procedure(s): CYSTOSCOPY, RIGHT RETROGRADE PYELOGRAM, URETHERAL DIALATION, RIGHT URETERAL STENT EXCHANGE Anesthesia Type: General Note: Postop Pain Control: Uneventful Sign Out: Well controlled pain PONV: No Neuro/Psych: Uneventful Sign Out: Acceptable/Baseline neuro status Airway/Respiratory: Uneventful Sign Out: Acceptable/Baseline resp. status CV/Hemodynamics: Uneventful Sign Out: Acceptable CV status; No obvious hypovolemia; No obvious fluid overload Other NRE: NONE DID A NON-ROUTINE EVENT OCCUR? No Last vitals: Vitals Value Taken Time BP 144/77 02/08/22 1030 Temp 36.7 ??C (98 ??F) 02/08/22 1030 Pulse 61 02/08/22 1043 Resp 31 02/08/22 1043 SpO2 97 % 02/08/22 1044 Vitals shown include unvalidated device data. Electronically Signed By: Chinyere Tijerina MD, MD February 08, 2022 12:24 PM Anesthesia Procedure Notes - Rabia Durham APRN CRNA - 02/08/2022 9:25 AM CDT Associated Order(s): Airway Airway Patient location during procedure: OR Staff - Anesthesiologist: Chinyere Tijerina MD SOLUTIONS DELIVERY CONSULTANT: Rabia Durham APRN SOLUTIONS DELIVERY CONSULTANT Performed By: GAVIN Consent for Airway Urgency: elective Indications and Patient Condition Indications for airway management: leslee-procedural Induction type:intravenous Mask difficulty assessment: 2 - vent by mask + OA or adjuvant +/- NMBA Final Airway Details Final airway type: supraglottic airway Supraglottic Airway Details Type: LMA Brand: Ambu AuraGain LMA size: 5 Post intubation assessment Placement verified by: capnometry, equal breath sounds and chest rise Number of attempts at approach: 2 (1st attempt with I-Gel 5, unable to seat) Secured with: pink tape Ease of procedure: easy Dentition: Unchanged and Intact Anesthesia Preprocedure Evaluation - Lilliana, Chinyere Cuevas MD - 02/08/2022 8:13 AM CDT Anesthesia Pre-Procedure Evaluation Patient: José Miguel Vega : 1940 Procedure : Procedure(s): CYSTOSCOPY, RIGHT URETEROSCOPY, HOLMIUM LASER LITHOTRIPSY, RIGHT URETERAL STENT EXCHANGE Past Medical History: Diagnosis Date ??? Acute deep vein thrombosis (DVT) of iliac vein (H) ??? Adenomatous polyp of colon ??? Anemia ??? Chronic kidney disease ??? Coronary artery disease ??? Degenerative joint disease (DJD) of hip ??? Detached retina, right ??? Dysplastic nevus ??? Hydronephrosis of right kidney ??? Hyperlipidemia ??? Hypertension ??? Lymphedema ??? Prediabetes ??? 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 Rupture of Achilles tendon ??? Uncomplicated asthma Past Surgical History: Procedure Laterality Date ??? BIOPSY Sacral Mass ??? CATARACT EXTRACTION Bilateral ??? COLONOSCOPY ??? EYE SURGERY Right Laser Surgery for Detached Retina ??? GENITOURINARY SURGERY Conversion Nephrostomy Tube to Ureteral Stent- Right & Nephrostomy Tube Removal ??? IR IVC FILTER PLACEMENT ??? ORTHOPEDIC SURGERY Right Total Hip Arthroplasty ??? SKIN LESION EXCISION Dysplastic Nevus ??? TONSILLECTOMY AND ADENOIDECTOMY No Known Allergies Social History Tobacco Use ??? Smoking status: Never ??? Smokeless tobacco: Never Substance Use Topics ??? Alcohol use: Not Currently Wt Readings from Last 1 Encounters: 02/08/22 86.2 kg (190 lb 1.6 oz) Anesthesia Evaluation ROS/MED HX ENT/Pulmonary: (+) asthma Neurologic: Cardiovascular: (+) hypertension--CAD --- METS/Exercise Tolerance: Hematologic: Musculoskeletal: GI/Hepatic: Renal/Genitourinary: (+) renal disease, Endo: Psychiatric/Substance Use: Infectious Disease: Malignancy: (+) Malignancy, History of Prostate. Other: Physical Exam Airway Mallampati: II TM distance: > 3 FB Neck ROM: full Mouth opening: > 3 cm Respiratory Devices and Support Dental no notable dental history Cardiovascular cardiovascular exam normal Pulmonary pulmonary exam normal OUTSIDE LABS: CBC: No results found for: WBC, HGB, HCT, PLT BMP: No results found for: NA, POTASSIUM, CHLORIDE, CO2, BUN, CR, GLC COAGS: No results found for: PTT, INR, FIBR POC: No results found for: BGM, HCG, HCGS HEPATIC: No results found for: ALBUMIN, PROTTOTAL, ALT, AST, GGT, ALKPHOS, BILITOTAL, BILIDIRECT, CASSANDRA OTHER: No results found for: PH, LACT, A1C, REMIGIO, PHOS, MAG, LIPASE, AMYLASE, TSH, T4, T3, CRP, SED Anesthesia Plan ASA Status: 2 NPO Status: NPO Appropriate Anesthesia Type: General. - Airway: LMA Induction: Propofol, Intravenous. Maintenance: Balanced. Consents Anesthesia Plan(s) and associated risks, benefits, and realistic alternatives discussed. Questions answered and patient/credit and collections representative(s) expressed understanding. - Discussed: - Discussed with: Patient Postoperative Care Pain management: Multi-modal analgesia. PONV prophylaxis: Ondansetron (or other 5HT-3), Dexamethasone or Solumedrol Comments: Chinyere Tijerina MD, MD documented in this encounter Miscellaneous Notes Anesthesia Care Transfer Note - Rabia Durham APRN SOLUTIONS DELIVERY CONSULTANT - 02/08/2022 10:02 AM CDT Patient: José Miguel Vega Procedure: Procedure(s): CYSTOSCOPY, RIGHT RETROGRADE PYELOGRAM, URETHERAL DIALATION, RIGHT URETERAL STENT EXCHANGE Diagnosis: Hydronephrosis [N13.30] Diagnosis Additional Information: No value filed. Anesthesia Type: General Note: Oropharynx: oropharynx clear of all foreign objects and spontaneously breathing Level of Consciousness: drowsy Oxygen Supplementation: face mask Level of Supplemental Oxygen (L/min / FiO2): 8 Independent Airway: airway patency satisfactory and stable Dentition: dentition unchanged Vital Signs Stable: post-procedure vital signs reviewed and stable Report to RN Given: handoff report given Patient transferred to: PACU Handoff Report: Identifed the Patient, Identified the Reponsible Provider, Reviewed the pertinent medical history, Discussed the surgical course, Reviewed Intra-OP anesthesia mangement and issues during anesthesia, Set expectations for post-procedure period and Allowed opportunity for questions and acknowledgement of understanding Vitals: Vitals Value Taken Time BP 172/102 02/08/22 0958 Temp Pulse 73 02/08/22 1000 Resp 15 02/08/22 1000 SpO2 99 % 02/08/22 1000 Vitals shown include unvalidated device data. Electronically Signed By: Rabia Durham APRN CRNA February 08, 2022 10:02 AM documented in this encounter Plan of Treatment Not on filedocumented as of this encounter Procedures Procedure Name Priority Date/Time Associated Comments Diagnosis ANE AIRWAY Routine 02/08/2022 9:25 AM Results f or this SUPRAGLOTTIC CDT procedure are i n PERFORMABLE the results section. documented in this encounter Results ANE AIRWAY SUPRAGLOTTIC PERFORMABLE (02/08/2022 9:25 AM CDT) Narrative Rabia Durham APRN CRNA - 02/08/2022 9:25 AM CDT Rabia Durham APRN CRNA ? 02/08/2022 ??9:26 AM Airway ? Patient location during procedure : OR Staff - ? Anesthesiologist: ??Lilliana, Magda Cuevas MD ? SOLUTIONS DELIVERY CONSULTANT: Rabia Durham APRN CRNA ? Performed By: SOLUTIONS DELIVERY CONSULTANT Consent for Airway ? Urgency: elective Indications [...] Dentition: Unchanged and Intact Chinyere Tijerina MD [facility] ANESTHESIA documented in this encounter Visit Diagnoses Not on filedocumented in this encounter Administered Medications Inactive Administered Medications - up to 3 most recent administrations Medication Order MAR Action Action Date Dose Rate Site ceFAZolin Sodium (ANCEF) injection 2 Given 02/08/2022 9:08 AM CD T 2 g g Routine, 2 g, Intravenous, PRE-OP/PRE-PROCEDURE, Starting on Tue02/08/22 at 0739, For 1 dose, Give first dose within 1 hour PRIOR to incision. If patient weight is greater than or equal to 120 kg increase dose to 3 g., Indications: Perioperative Pharmacoprophylaxis, Pre-procedure dexamethasone (DECADRON) injection Given 02/08/2022 9:27 AM CDT 4 mg Intravenous, PRN, Administer over 1 Minutes, Starting on Tue02/08/22 at 0927, Anesthesia Intra-op fentaNYL (PF) (SUBLIMAZE) injection Given 02/08/2022 9:12 AM CDT 100 mcg Intravenous, PRN, Administer over 3-5 Minutes, Starting on Tue02/08/22 at 0912, Anesthesia Intra-op lactated ringers infusion Restarted 02/08/2022 9:08 AM CDT at 25 mL/hr, Intravenous, CONTINUOUS, IF patient NOT on dialysis., Pre-procedure, Starting on Tue02/08/22 at 0800, Until Tue02/08/22 at 1000 New Bag 02/08/2022 8:13 AM CDT 25 mL/hr lidocaine 2% injection (MDV) Given 02/08/2022 9:12 AM CDT 100 mg Other, PRN, Starting on Tue02/08/22 at 0912, Anesthesia Intra-op ondansetron (ZOFRAN) injection Given 02/08/2022 9:27 AM CDT 4 mg Intravenous, PRN, Administer over 2-5 Minutes, Starting on Tue02/08/22 at 0927, Anesthesia Intra-op propofol (DIPRIVAN) injection 10 mg/mL v ial Given 02/08/2022 9:12 AM CDT 160 mg Intravenous, PRN, Starting on Tue02/08/22 at 0912, Anesthesia Intra-op propofol (DIPRIVAN) New Bag 02/08/2022 9:17 AM 20 mcg/kg/min 10.34 4 mL/hr injection 10 mg/mL vial CDT Intravenous, CONTINUOUS PRN, Starting on Tue02/08/22 at 0917, Anesthesia Intra-op documented in this encounter Care Teams Paper Core Machine Operator Relationship Specialty Start Date End Date No Ref-Primary, Physician PCP - General 02/08/22 documented as of this encounter
--- OUTSIDE RECORDS SUMMARY | 2022-02-08 20:12 | XMS_ITS | Encounter Summary ---
:1940 Author Organization [facility] Address [address] [place] [address] Care Team Providers Name Role Phone Unavailable Primary Care Provider Unavailable Reason for Visit Radiation Therapy (Routine) - Closed Specialty Diagnoses / Procedures Referred By Contact Refer red To Contact Diagnoses Primary Malignant Neoplasm Of Prostate (HCC) Tereso Frazier M.D. [facility] Procedures Prior Auth Rad Tx [place] IMRT SIMPLE [address] [place] [address] Referral ID Status Reason Start Date Expiration Date Visits Requ ested Visits Authorized [id number] Closed 03/21/2020 03/21/2021 20 20 Encounter Details Date Type Department Care Team Description 04/02/2020 Hospital Encounter Department of Radiation Alisha Frazier, [place] [address] [facility] [address] [place] [phone] Social History Tobacco Use Types Packs/Day Years [...]
--- OUTSIDE RECORDS SUMMARY | 2022-02-08 20:12 | XMS_ITS | Encounter Summary ---
:1940 Author Organization [facility] Address [address] [place] [address] Care Team Providers Name Role Phone Unavailable Primary Care Provider Unavailable Reason for Referral Outpatient (Routine) - Canceled Specialty Diagnoses / Procedures Referred By Contact Refer red To Contact Radiation Oncology [facility] .[facility] [address] [place] [phone] Referral ID Status Reason Start Date Expiration Date Visits V isits Requested Authorized [id number] Canceled 03/21/2020 03/21/2021 1 1 TILE LAYER Reason for Visit Outpatient (Routine) - Canceled Specialty Diagnoses / Procedures Referred By Contact Refer pippa To Contact Radiation Oncology Tereso Frazier M .D. [facility] Region [address] [place] [phone] Referral ID Status Reason Start Date Expiration Date Visits V isits Requested Authorized [id number] Canceled 03/21/2020 03/21/2021 1 1 Encounter Details Date Type Department Care Team Description 04/07/2020 Hospital Encounter Department of Timothy Frazier M.D. [address] [place] [phone] Primary Malignant Radiation Oncology Rufina Long R.N. [address] [place] [phone] Neoplasm Of Prostate in [place], (HCC) (Primar y Dx) [place] [address] [place] [address] Social History Tobacco Use Types Packs/Day Years Used Date Smoking Tobacco: Never Assessed Sex Assigned at Date Recorded Not on file documented as of this encounter Last Filed Vital Signs Vital Sign Reading Time Taken Comments Blood Pressure - - Pulse - - Temperature 36.1 ??C (97 ??F) 04/07/2020 2:17 PM ROOF TILE LAYER Respiratory Rate - - Oxygen Saturation - - Inhaled Oxygen Concentration - - Weight 86 kg (189 lb 9.5 oz) 04/07/2020 2:17 PM ROOF TILE LAYER Height - - Body Mass Index 27.3 03/21/2020 8:19 AM ROOF TILE LAYER documented in this encounter Medications at Time [...] encounter Progress Notes Rufina Long R.N. - 04/07/2020 12:00 PM CST SUBJECTIVE REASON FOR VISIT Evaluation for side effects while receiving radiation treatment Nurse visit HISTORY OF PRESENT ILLNESS Kalen Vega is a 79 y.o. male with locally advanced prostate cancer Treatment Course: 1x Pelvis Plan ID Fractions Dose / Fraction (cGy) Dose Treated (cGy) Dose Planned (cGy) First Treatment Last Treatment Elapsed Days F1 prost, LNs 300 2100 6000 03/27/2020 04/07/2020 11 Course Summary 03/27/2020 04/07/2020 11 The patient reports 4-5 episodes of diarrhea in a day recently. He trialed 1/2 tablet of Imodium butdid not seem to make much difference. He trialed 1 tablet of Imodium last night and diarrhea then stopped. He is asking for dietary clarification as well. He is urinating large volume at a time in the evenings. He is trying to be mindful to stay hydrated. OBJECTIVE Temp 36.1 ??C Wt 86 kg BMI 27.30 kg/m?? PHYSICAL EXAM General: Alert and oriented in no apparent distress. ASSESSMENT / PLAN The patient is tolerating radiation treatment well overall. I reviewed Diarrhea pamphlet with patient in detail today. Patient can take 1 tablet of Imodium after first episode of diarrhea and if he hasanother episode of diarrhea he can repeat this dose. He can take up to 4 tablets of Imodium in a day. We reviewed the importance of staying well hydrated. He will contact us with any questions or concerns. We will continue with radiation treatment as planned. Signed by: Rufina Long R.N. 04/07/2020 2:17 PM ROOF TILE LAYER TILE LAYER documented in this encounter Plan of Treatment Scheduled Referrals Name Type Priority Associated Order Schedule Diagnoses Radiation Oncology Outpatient Referral Routine On ce for 1 nurse visit Occurrences sta rting (clinic) 04/07/2020 untanabella perry 04/07/2020 documented as of this encounter Visit Diagnoses Diagnosis Primary Malignant Neoplasm Of Prostate ( HCC) - Primary documented in this encounter
--- OUTSIDE RECORDS SUMMARY | 2022-02-08 20:12 | XMS_ITS | Encounter Summary ---
:1940 Author Organization [facility] Address [address] [place] [address] Care Team Providers Name Role Phone Unavailable Primary Care Provider Unavailable Reason for Visit Radiation Therapy (Routine) - Closed Specialty Diagnoses / Procedures Referred By Contact Refer red To Contact Diagnoses Primary Malignant Neoplasm Of Prostate (HCC) Tereso Frazier M.D. [facility] Procedures Prior Auth Rad Tx [place] IMRT SIMPLE [address] [place] [address] Referral ID Status Reason Start Date Expiration Date Visits Requ ested Visits Authorized [id number] Closed 03/21/2020 03/21/2021 20 20 Encounter Details Date Type Department Care Team Description 04/14/2020 Hospital Encounter Department of Radiation Alisha Frazier, [place]cology [place] [address] [facility] [address] [place] [phone] Social History Tobacco Use Types Packs/Day Years [...]
--- OUTSIDE RECORDS SUMMARY | 2022-02-08 20:13 | XMS_ITS | Encounter Summary ---
:1940 Author Organization [facility] Address [address] [place] [address] Care Team Providers Name Role Phone Unavailable Primary Care Provider Unavailable Reason for Visit Radiation Therapy (Routine) - Closed Specialty Diagnoses / Procedures Referred By Contact Refer red To Contact Diagnoses Primary Malignant Neoplasm Of Prostate (HCC) Tereso Frazier M.D. [facility] Procedures Prior Auth Rad Tx [place] IMRT SIMPLE [address] [place] [address] Referral ID Status Reason Start Date Expiration Date Visits Requ ested Visits Authorized [id number] Closed 03/21/2020 03/21/2021 20 20 Encounter Details Date Type Department Care Team Description 03/31/2020 Hospital Encounter Department of Radiation [facility] [place] [address] [facility] [address] [place] [phone] Social History Tobacco Use Types Packs/Day Years Used Date Smoking Tobacco: Never Assessed Sex Assigned at Date Recorded Not on file documented as of this encounter Medications at Time of Discharge Medication Sig Dispensed Refills Start Date End Date amLODIPine (NORVASC) 10 mg Take 10 mg by 0 2019 tablet mouth. atorvastatin (LIPITOR) 40 mg TK 1 T PO QHS 0 1005/2019 tablet bicalutamide (CASODEX) 50 mg TK 1 [...]
--- OUTSIDE RECORDS SUMMARY | 2022-02-08 20:13 | XMS_ITS | Encounter Summary ---
:1940 Author Care Team Providers Name Role Phone Cesar Mccollum MD Primary Care Provider [phone] Reason for Visit Overactive Bladder; Hydronephrosis; Pros merino Cancer Assessment and Plan 1. Increased frequency of urination - Will increase his dose of myrbetriq t o 50 mg daily ? Myrbetriq 50 mg tablet,extended relea se 2. Malignant tumor of prostate - Continue ADT with Dr. Tan 3. Hydronephrosis - Overdue for right stent exchange. Giv en duration of time will set up with Holmium laser for possible treatment of stent encrustation. - May need to consider CT A/P prior ? cystoscopy with ureteral stent exchan ge (SURG) Discussion Note: None recorded.Patient educational handouts: No information available. Plan of Care Reminders Provider Appointments None recorded. ? ? Lab None recorded. ? ? Referral None recorded. ? ? Procedures None recorded. ? ? Surgeries Cystoscopy with Ureteral Stent Exchange 2021 ? (SURG) Imaging None recorded. ? ? Medications Name Start Date ? ? amlodipine 10 mg tablet ? atorvastatin 80 mg tablet ? TAKE 1 TABLET BY MOUTH EVERY DAY benzonatate 200 mg capsule ? furosemide 20 mg tablet ? TAKE 1 TABLET BY MOUTH DAILY metoprolol succinate ER 50 mg tablet,extended release 24 hr ? Myrbetriq 25 mg tablet,extended release ? Myrbetriq 50 mg tablet,extended release ? TAKE 1 TABLET BY MOUTH EVERY DAY omeprazole 20 mg capsule,delayed release ? tamsulosin 0.4 mg capsule ? TAKE 1 CAPSULE BY MOUTH DAILY Xarelto 10 mg tablet ? TAKE 1 TABLET EVERY 24 HOURS Medications Administered None recorded. Vitals Height Weight BMI 5 ft 10 in 191 lbs 27.4 kg/m2 Results Lab Results None recorded. Allergies Code Code System Name Reaction Severity Onset NKDA ? ? ? Problems None recorded. Procedures Date Name Performed by ? ? Colonoscopy Information not avai lable ? Cystoscopy Information not avai lable Vaccine List None recorded. Social History Tobacco Smoking Status Never Smoker What was the date of your most recent tobacco screening? What is your level of alcohol consumption? Occasional Functional Status Unknown. Past Encounters 12/30/2021 Increased Frequency of Urination; Malign ant Tumor of Prostate; Hydronephrosis Nicola Ware MD: [address] [place] [phone], Ph. History of Present Illness Note: <div>Excerpt from hospital consultation... </div><div>81 y.o. year old m enrrique who was admitted to [facility] for gross hematuria & CT findings. Onset of hematuria 2 days ago. Also with penile pain over the past two weeks. He denies any past irritative voiding symptoms. He was seen by urologist 10 years ago and found with elevated PSA he cannot recall. MD recommended prostate biopsy but pt declined. 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 PSA 161.87. 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 He underwent therefore a bone biopsy and is here to review the results. He does have a scheduled appointment with oncologist next week. He is seen today with his family members. Reports that the nephrostomy tube has been draining well has been intermittently hematuric and has a significant amount of drainage around the tube but is not terribly bothersome. </div><div> </div><div>07/02/20: </div><div>Here for follow up advanced prostate cancer. Completed 32 sessions of primary radiation therapy with Dr. Frazier (03/27/20 - 04/28/20). Reports that he is overall feeling well. Some decrease in energy and intermittent hematuria reports an overall decent appetite and no significant changes in his weight. His nephrostomy tube is draining well and though new since has not provided much discomfort. </div><div> </div><div>Medical Oncologist: Dr. Tan </div><div>Radiation Oncologist: Dr. Frazier </div><div> </div><div>10/08/20</div><div>Here for follow up advanced prostate cancer now s/p radiation and maintained on Zytega. Happy to report that his PSA is down to 0.63 ng/mL! Does feel low energy but managing. Hasbeen dealing with intermittent hematuria and blood in stool. Underwent a colonoscopy which was consistent with radiation proctitis. Also reports significant urinary frequency and urgency.</div>&lt ;div>
</div><div>12/30/21:</div><div>Here for follow up advanced prostate cancer now s/p radiation and maintained on Zytega. He has continued to follow with Dr. Tan with continued good PSA control. Patient is long overdue for stent change. Has found Myrbetriq to be very helpful for his urinary frequency and urgency.</div><div>
</div><div>Seen today with his who provides some of the history.</div> Review of Systems ? Comprehensive General Adult ROS Reported By: Patient Constitutional: Constitutional: no fever, no chills Eyes: Eyes: no dry eyes, no vision change, no irritation Endocrine: Endocrine: no fatigue, no in creased thirst Cardiovascular: Cardiovascular: no chest ami n, no palpitations Integumentary: Skin: no rashes, no change i n skin color Respiratory: Respiratory: no wheezing, no cough, no shortness of breath Gastrointestinal: Gastrointestinal: no abdomin al pain, no nausea, no vomiting, no constipation, no GERD Musculoskeletal: Musculoskeletal: no neck ami n, no back pain Neurologic: Neurologic: no tremor, no di zziness, no numbness, no headaches Genitourinary: Genitourinary: no incontinen ce, no difficulty urinating ENMT: Ears: no ear pain. Mouth/Thr oat: no sore throat Allergic/Immunologic: Allergy/Immunologic: no itch ing, no hives Hematologic/Lymphatic: Hematologic/Lymphatic no swo llen glands, no excessive bleeding Psychiatric: Psych: no hallucinations, (n ormal) sleep disturbances: mismatch of sleep / wake castro edule with lifestyle needs Physical Exam ? Notes: <div>Constitutional: Well-no urished. No physical deformities. Normally developed. Good grooming. </ div><div>
</div><div>Neck: Neck symmetrical, not swollen. Normal tracheal position. </div><div>
</div><div>Respiratory: No labored breathing, no use of accessory muscles. </div><div>
</div><div>Sk in: No paleness, no jaundice, no cyanosis. No lesion, no ulcer, no rash. < /div><div>
</div><div>Neurologic / Psychiatric: Oriented to austen e, oriented to place, oriented to person. No depression, no anxiety, no a gitation. </div><div>
</div><div>Eyes: Normal conjunctivae. Normal eyelids. </div><div>
</div><div>Ears, Nose, Mouth, and Throat: Left ear no scars, no lesions, no masses. Right ear no scars, no lesions, no masses . Nose no scars, no lesions, no masses. Normal hearing. Normal lips. </div> <div>
</div><div>Musculoskeletal: Normal gait and station of head and neck . </div><div>
</div><div>
</div>
--- OUTSIDE RECORDS SUMMARY | 2022-02-08 20:13 | XMS_ITS | Encounter Summary ---
:1940 Author Organization [facility] Address [address] [place] [address] Care Team Providers Name Role Phone Unavailable Primary Care Provider Unavailable Encounter Details Date Type Department Care Team Description 03/24/2020 [facility] For Screening Medicine, [facility] [place] For Other Viral Diseases [facility], in [place] [address] [address] (COVID-19) [address] [address] [place] [address] [phone] Social History Tobacco Use Types Packs/Day Years Used Date Smoking Tobacco: Never Assessed Sex Assigned at Date Recorded Not on file documented as of this encounter Plan of Treatment Not on filedocumented as of this encounter Procedures Procedure Name Priority Date/Time Associated Diagnosis Comme nts SARS CORONAVIRUS-2 Routine 03/24/2020 9:28 AM Encounter For Re sults for this RNA, V [facility]IST Screening For Other procedur e are in Viral Diseases the results (COVID-19) section. documented in this encounter Results SARS Coronavirus-2 RNA, V Asymptomatic (03/24/2020 9:28 AM MANAGED CARE SPECIALIST) [facility] Method Time Signature SARS-CoV-2 Swab, 03/24/2020 [facility] Specimen Nasopharynx 9:39 PM MANAGED CARE SPECIALIST Source SARS CoV-2 Undetected Undetected 03/24/2020 [facility]TO RNA, TMA 9:39 PM MANAGED CARE SPECIALIST Comment: SARS-CoV-2 RNA absent. This result does not rule out COVID-19 in the patient, as the sensitivity of the test depends o n the timing of the specimen collection and the quality of the specim en. Result should be correlated with patient's history and clinical presentat ion. ----ADDITIONAL INFORMATION---- This test is performed using the Aptima SARS-CoV-2 assay ([employer] which has received Emergency Use Authori zation (EUA) by the U.S. Food and Drug Administration. Fact sheets for this Emergency Use Autho rization (EUA) assay can be found at the following links: For Healthcare Providers: https://www.Directr a.gov/media/054319/download For Patients: https://www.fda.gov/media/ 042571/download Specimen Anatomical Collection Method Collection Time Receive d Time (Source) Location / / Volume Laterality Varies 03/24/2020 9:28 AM 0 3:31 (Nasopharynx) MANAGED CARE SPECIALIST PM MANAGED CARE SPECIALIST Tereso Frazier M.D. LAB MICROBIOLOGY - GENERAL O [place] Performing Organization Address City/State/ZIP Code Phon e Number [facility]- [address] [place] [address] [place] [address] [address] documented in this encounter Visit Diagnoses Diagnosis Encounter For Screening For Other Viral Diseases (COVID-19) documented in this encounter Additional Health Concerns Infection Onset Date Last Indicated Resolved Time COVID19 Pending 03/23/2020 03/24/2020 03/24/2020 9:39 PM MANAGED CARE SPECIALIST documented as of this encounter
--- OUTSIDE RECORDS SUMMARY | 2022-02-08 20:13 | XMS_ITS | Clinical Summary ---
:1940 Author Organization [facility] [facility] [place] [address] Care Team Providers Name Role Phone Cesar Mccollum MD Primary Care Provider [phone] Nicola Ware MD Unavailable Mireya Tan Unavailable Allergies No known active allergies Medications Medication Sig Dispensed Refills Start End Date Status Date nitroglycerin Place 1 tablet 1 Bottle 0 A ctive (NITROSTAT) 0.4 mg under the 0 SL tongue every 5 tabletIndications: minutes if Chest pain on needed for exertion Chest Pain (may take up to 3 tablets SL x 3 q 5 minutes). XARELTO 10 mg Take 10 mg by 0 Ac tive tablet mouth once 1 daily. enzalutamide Take 2 Capsules 0 A ctive (XTANDI) 40 mg (80 mg) by 1 capsuleIndications: mouth once Prostate cancer daily. (HC) amLODIPine TAKE 1 90 Tablet 1 Active (NORVASC) 10 mg TABLET(10 MG) 2 tabletIndications: BY MOUTH EVERY Benign essential DAY HTN benzonatate Take 1 Capsule 21 Capsule 0 Ac tive (TESSALON) 200 mg (200 mg) by 2 capsuleIndications: mouth 3 times Positive daily if needed self-administered for Cough. antigen test for COVID-19, Cough mirabegron Take 1 Tablet 90 Tablet 0 Activ e EXTENDED-release (25 mg) by 2 (MYRBETRIQ) 25 mg mouth once tabletIndications: daily. Overactive bladder cholecalciferol Take 1 Capsule 0 Active (Vitamin D-3) 2,000 (2,000 units) 2 unit capsule by mouth once daily. coenzyme q10 100 mg Take 1 Capsule 0 Active cap (100 mg) by 2 mouth once daily. rosuvastatin Take 1 Tablet 30 Tablet 11 Act aditya (CRESTOR) 40 mg (40 mg) by 2 tabletIndications: mouth at Hyperlipidemia, bedtime. unspecified hyperlipidemia type metoprolol TAKE 1 30 Tablet 0 Active succinate (TOPROL TABLET(50 MG) 2 XL) 50 mg BY MOUTH EVERY sustained-release DAY tabletIndications: Hypertension, unspecified type aspirin (ECOTRIN) Take 1 Tablet 0 Active 81 mg enteric (81 mg) by 2 coated mouth once tabletIndications: daily with a CAD in [place] meal. artery clopidogreL Take 1 Tablet 90 Tablet 3 Acti ve (PLAVIX) 75 mg (75 mg) by 2 tabletIndications: mouth every CAD in [place] morning. artery tamsulosin (FLOMAX) TAKE 1 90 Capsule 3 Active 0.4 mg CAPSULE(0.4 MG) 2 capsuleIndications: BY MOUTH EVERY BPH without urinary DAY AFTER A obstruction MEAL tamsulosin (FLOMAX) Take 1 Capsule 90 Capsule 3 01/11 Discontinued 0.4 mg (0.4 mg) by 1 22 capsuleIndications: mouth once BPH without urinary daily after a obstruction meal. Hydrocortisone Insert 1 Enema 420 mL 0 01/29/20 Discontinued (CORTENEMA; (100 mg) 1 22 (*Patien t COLOCORT) 100 mg/60 rectally at states no mL bedtime. For 7 longe r enemaIndications: days. ta collin/Not on Proctitis sending facility l ist) omeprazole TAKE 1 90 Capsule 3 01/13/20 Disconti nued (PRILOSEC) 20 mg CAPSULE(20 MG) 1 22 (Reorder Delayed-Release BY MOUTH EVERY (E-cancel not capsuleIndications: DAY BEFORE A sent)) Melena MEAL atorvastatin Take 1 Tablet 90 Tablet 0 01/19/20 Dis continued (LIPITOR) 80 mg (80 mg) by 2 22 (Re order tabletIndications: mouth once (E-cancel not Hyperlipidemia, daily. sent )) unspecified Additional hyperlipidemia type refills require cardiology appointment with labs prior. Please call [phone] to schedule. metoprolol TAKE 1 30 Tablet 0 01/24/20 Discontin ued succinate (TOPROL TABLET(50 MG) 2 22 XL) 50 mg BY MOUTH EVERY sustained-release DAY tabletIndications: Hypertension, unspecified type omeprazole TAKE 1 90 Capsule 0 01/29/20 Disconti nued (PRILOSEC) 20 mg CAPSULE(20 MG) 2 22 (*Med Delayed-Release BY MOUTH EVERY complete/Regime capsuleIndications: DAY BEFORE A n Melena MEAL complete/L evel of care ian) atorvastatin Take 1 Tablet 90 Tablet 3 01/19/20 Dis continued (LIPITOR) 80 mg (80 mg) by 2 22 (*M ed tabletIndications: mouth once ineffective) Hyperlipidemia, daily. unspecified hyperlipidemia type Active Problems Problem Noted Date Radiation proctitis 09/29/2020 Overview: Colonoscopy 09/2020 radiation proctitis, diverticuli, internal hemorrhoids, no follow up needed Prostate cancer metastatic to bone 04/30/2020 Hydronephrosis of right kidney, s/p Nephrostomy 201902/29/2020 Overview: due to bladder mass, nephrostomy tube pl aced 03/01/2020 Acute deep vein thrombosis (DVT) of iliac vein 020 Overview: right iliac adjacent to bladder mass Abnormal stress test 09/15/2016 Overview: -Stress echocardiogram 09/13/2016 Mid and apical anterior wall, mid and a pical anterior septum, and mid and apical inferior septum hypokinesis EF 65-70% Anticoagulation monitoring, special range 08/14/2014 S/P total hip arthroplasty 08/09/2014 Sensorineural hearing loss, bilateral 07/17/2010 Adenomatous polyp of colon Overview: Colonoscopy 09/2010 polyp repeat in 5 yea rs Hyperlipidemia DJD (degenerative joint disease) of hip Overview: right Coronary artery disease Overview: stent placements 2016 Essential hypertension Prediabetes Resolved Problems Problem Noted Date Resolved Date Prostate cancer 03/01/2020 11/20/2020 Overview: 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 ACL=305.87 Bladder mass 02/29/2020 04/30/2020 Hematuria 02/29/2020 03/05/2020 Acute deep vein thrombosis (DVT) 02/29/2020 021 S/P coronary angioplasty 11/03/2016 03/05/2020 Chest pain 09/15/2016 03/05/2020 Elevated prostate specific antigen (PSA) 10/06/2010 03/05/2020 Hip arthritis 10/06/2010 03/05/2020 Colon polyp 07/15/2010 PATRICE (acute kidney injury) 03/05/2020 Obstructive uropathy 03/05/2020 Encounters Date Type Specialty Care Team Description 02/05/2022 Refill Cesar Mcclolum Requ christine Minor MD (Tamsulosin) 01/28/2022 Ancillary Procedure 01/28/2022 Office Visit Cesar Mccollum Medicare AN MICHEL Minor MD (subsequent) Vi sit (81 year old); Preo perative Exam [facility]); Immunization/In jection 01/28/2022 Preop Visit Cesar Mccollum Preoperativ e Exam (DOS: MD Mily 02/08/2022, uro logy stent, Dr. Lul wong, [facility]) 01/28/2022 Travel 01/23/2022 Refill Cesar Mccollum Requ christine Minor MD (Metoprolol Suc cinate) 01/22/2022 Telephone Andre Merlos Results (BN P) MD Stanislaw 01/22/2022 Refill Cesar Mccollum Requ christine Minor MD (Metoprolol Suc cinate) 01/18/2022 Orders Only Lab, [facility] 01/18/2022 Office Visit Andre Merlos Follow Up ( 1 year follow MD Stanislaw up ) 01/18/2022 Refill Andre Merlos Refill Requ christine Dover MD (Rosuvastatin 4 0mg) 01/18/2022 Travel 01/14/2022 Orders Only Lab, [facility] 01/14/2022 Travel 01/12/2022 Telephone Cesar Mccollum Refill Requ christine Minor MD 01/11/2022 Refill Cesar Mccollum Refill Requ christine Minor MD (Omeprazole) 12/31/2021 Telephone [facility] ([place] needed?) 12/24/2021 Telephone Cesar Mccollum Follow Up MD Mily 12/23/2021 Refill Cesar Mccollum Refill Requ christine Minor MD (Metoprolol Suc cinate) 12/21/2021 Refill Cesar Mccollum Refill Requ christine Minor MD (Metoprolol Suc cinate) 12/03/2021 Office Visit Sandip Garcia, [facility] 12/03/2021 Travel 11/30/2021 Refill Nicola Ware Refill Request MD Regan (Myrbetriq) 11/12/2021 Office Visit Sandip Garcia, [facility] 11/12/2021 Travel from Last 3 Months Immunizations Name Administration Dates Next Due COVID-19 vaccine (eCollect-BioNTech 30mcg/0.3mL) 12YO+ 022 BIVALENT BOOSTER PF, MDV COVID-19 vaccine (Magic [employer] NetworkBioItsOn 30mcg/0.3mL) 12YO+ 022 DAYRON-SUCROSE PF, MDV COVID-19 vaccine (Tequila Mobile 30mcg/0.3mL) PF, 1, 2020 MDV Influenza, Inactivated AIIV4 (Age 65+ Years) Preserv 022 Free Td (Age >=7 Years) 03/26/2003 Tdap 09/07/2016 Family History Medical History Relation Name Comments Good Health Daughter 2 Cancer Father lung Heart Disease Mother cad Other Mother kidney failure Diabetes Sister 3 Diabetes Sister 4 Arthritis Sister 5 Arthritis Sister 6 Good Health Son 3 Good Health Son 4 Anesthesia Problem No Family History Relation Name Status Comments Daughter 1 Alive Daughter 2 Father (Age 75) Mother (Age 73) Sister 1 Alive Sister 2 Alive Sister 3 Sister 4 Sister 5 Sister 6 Son 1 Alive Son 2 Alive Son 3 Son 4 Social History Tobacco Use Types Packs/Day Years Used Date Never Smoker Smokeless Tobacco: Never Used Tobacco Cessation: Counseling Given: Yes Alcohol Use Standard Drinks/Week Comments Yes 0 (1 standard drink = 0.6 oz pure less t [place] a beer a week on average, alcohol) no more than 2 drink s at a sitting Alcohol Habits Answer Date Recorded How often do you have a drink 2-4 times a month 11/20/2019 containing alcohol? How many drinks containing alcohol do 1 or 2 you have on a typical day when you are drinking? How often do you have six or more Never 2019 drinks on one occasion? Comment: less than a beer a week on 07/15/2010 average, no more than 2 drinks at a sitting Sex Assigned at Date Recorded Not on file COVID-19 Exposure Response Date Recorded In the last 10 days, have you been in contact with No / Unsu re 01/28/2022 9:01 AM CDT someone who was confirmed or suspected to have Coronavirus/COVID-19? Obstetrics History Last Filed Vital Signs Vital Sign Reading Time Taken Comments Blood Pressure 146/83 01/28/2022 11:53 AM CDT Pulse 61 01/28/2022 11:53 AM CDT Temperature 36.1 ??C (96.9 ??F) 07/16/2020 10:21 AM CDT Respiratory Rate 16 10/08/2020 9:10 AM CDT Oxygen Saturation 98% 01/28/2022 11:53 AM CDT Inhaled Oxygen Concentration - - Weight 89.2 kg (196 lb 10.4 oz) 01/28/2022 11:53 AM CDT Height 178.6 cm (5' 10.32) 01/28/2022 11:53 AM CDT Body Mass Index 27.96 01/28/2022 11:53 AM CDT Plan of Treatment Upcoming Encounters Date Type Specialty Care Team Description 02/16/2022 Office Visit Cesar Mccollum MD [address] [place], [place] [address] (Wo rk) Health Maintenance Due Date Last Done Comments Pneumococcal series for age 65+ (1 1945 - PCV) Zoster (shingles) series for age 0205/27/1958 50+ (1 of 2) BMI (ht and wt on same day) for 01/28/2023 01/28/2022, 01/10, age 18+ 12/11/2020, Additional history exists Depression screening for age 12+ 01/28/2023 01/28/2022, , 11/20/2020, Additional history exists Medicare Wellness for age 65+ 01/28/2023 01/28/2022, 2020 Tetanus booster 09/07/2026 09/07/2016, 03/26/2003 Tdap Completed 09/07/2016 COVID-19 vaccine series Completed 01/28/2022, 08/26/2021, 01/13/2021, Additional history exists Influenza for age 65+ Completed 01/28/2022 Procedures Procedure Name Priority Date/Time Associated Diagnosis Comme nts CT HEAD BRAIN WO DEBBI 01/28/2022 10:58 Confusion Results for this AM CDT procedure are i n the results section. URINALYSIS Routine 01/28/2022 10:36 Dysuria Results for this MICROSCOPIC AM CDT procedure are i n the results section. URINE CULTURE Routine 01/28/2022 10:36 Dysuria Results fo r this AM CDT procedure are i n the results section. UA W/ SEDIMENT EXAM Routine 01/28/2022 10:36 Dysuria Resu lts for this REFLEXED PER AM CDT procedure are i n CRITERIA the results section. HEMOGLOBIN A1C Add On 01/28/2022 10:33 Prediabetes Results f or this SCREENING AM CDT procedure are i n the results section. CBC WITH AUTO Routine 01/28/2022 10:33 Confusion Results fo r this DIFFERENTIAL AM CDT procedure are i n the results section. TSH WITH REFLEX Routine 01/28/2022 10:33 Confusion Results for this AM CDT procedure are i n the results section. BASIC METABOLIC Routine 01/28/2022 10:33 Confusion Results for this PANEL AM CDT procedure are i n the results section. HEPATIC FUNCTION Routine 01/28/2022 10:33 Confusion Results for this PANEL AM CDT procedure are i n the results section. CBC WITH AUTO Routine 01/28/2022 10:33 Confusion Results fo r this DIFFERENTIAL AM CDT procedure are i n the results section. BRAIN NATRIURETIC Routine 01/18/2022 3:22 Dyspnea, unspecified Results for this PEPTIDE PM CDT type procedure are i n the results section. BASIC METABOLIC Routine 01/14/2022 8:55 Coronary artery Result s for this PANEL AM CDT disease, unspecified procedu re are in vessel or lesion type, the r esults unspecified whether section. angina present, unspecified whether [place] or transplanted heart Hyperlipidemia, unspecified hyperlipidemia type LIPID PANEL W REFLEX Routine 01/14/2022 8:55 Coronary artery R esults for this MEASURED LDL AM CDT disease, unspecified procedu re are in vessel or lesion type, the r esults unspecified whether section. angina present, unspecified whether [place] or transplanted heart Hyperlipidemia, unspecified hyperlipidemia type from Last [address] HEAD BRAIN WO (01/28/2022 10:58 AM CDT) Anatomical Region Laterality Modality HEAD, BRAIN Computed Tomography Specimen (Source) Anatomical Collection Method Collection Time Re ceived Time Location / / Volume Laterality 01/28/2022 3:07 PM CDT Impressions 01/28/2022 3:07 PM CDT Mild chronic white matter changes and mild generalized cortical atrophy. No hydrocephalus or mass. Please note that all CT scans at this [facility] use dose modulation, iterative reconstruction, and/or weight-based dosing when appropriate to reduce radiation dose to as low as reasonably achievable. Dictated by Manav Thompson MD @ Jan 28 2 022 ??3:07PM (Electronically Signed) ?? Narrative 01/28/2022 3:07 PM CDT For Patients: ??As a result of the Century Cures Act, medical imaging exams and procedure report s are released immediately into your [facility] record. ??You may view this report before your referring provider. ??If you have questions, please contact your health care provider. INDICATION: Confusion COMPARISON: none TECHNIQUE: A CT volumetric acquisition was performe d of the brain without IV contrast. Please note that all CT scans at this [facility] use dose modulation, iterative reconstruction, and/or weight-based dosing when appropriate to reduce radiation dose to as low as reasonably achievable. FINDINGS: Mild patchy areas of decreased attenuati on in the white matter are present bilaterally which are nonspecific but most likely related to chronic small vessel ischemic disease. No hydrocephalus. No mass o r hemorrhage. Vascular calcifications. N o extra-axial fluid collection. No midline shift. Sinuses clear. Procedure Note Manav Thompson MD - 01/28/2022For matting of this note might be different from the original. For Patients: As a result of the ntury Cures Act, medical imaging exams and procedure reports are released immediately into your electronic medical record. You may view this report before your referring provider. If you have questions, please contact [facility] care provider. INDICATION: Confusion COMPARISON: none TECHNIQUE: A CT volumetric acquisition was performe d of the brain without IV contrast. Please note that all CT scans at this [facility] use dose modulation, iterative reconstruction, and/or weight-based dosing when appropriate to reduce radiation dose to as low as reasonably achievable. FINDINGS: Mild patchy areas of decreased attenuati on in the white matter are present bilaterally which are nonspecific but most likely related to chronic small vessel ischemic disease. No hydrocephalus. No mass or hemorrhage. Vascular calcifications. No extra-axial fluid col lection. No midline shift. Sinuses clear. IMPRESSION: Mild chronic white matter changes and mi ld generalized cortical atrophy. No hydrocephalus or mass. Please note that all CT scans at this [facility] use dose modulation, iterative reconstruction, and/or weight-based dosing when appropriate to reduce radiation dose to as low as reasonably achievable. Dictated by Manav Thompson MD @ Jan 28 2 022 3:07PM (Electronically Signed) Cesar Mccollum MD CT (ABNORMAL) URINALYSIS MICROSCOPIC (01/28/2022 10:36 AM CDT) [facility] Method Time Signature RBC >100 (A) 0-2, None 01/28/[address] [facility] Seen /HPF 11:00 AM T [facility] WBC None Seen 0-2, 3-5, 01/28/[address] [facility] None Seen 11:00 AM CDT [place] /HPF CLINIC BACTERIA None Seen None 01/28/2022 [facility] Seen, 11:00 AM CDT [place] Rare, Few CLINIC Bacteria/ HPF EPITHELIAL None Seen None 01/28/[address] [facility] CELLS Seen, Few 11:00 AM CDT [place] Epi/HPF CLINIC Specimen Anatomical Collection Method Collection Time Receive d Time (Source) Location / / Volume Laterality Urine URINE SPECIMEN / Non-Blood / 01/28/2022 10:36 022 Unknown Unknown AM CDT 10:36 AM CDT Cesar Mccollum MD URINE Performing Organization Address City/State/ZIP Code Phon e Number [facility] [address] [place] [address] URINE CULTURE (01/28/2022 10:36 AM CDT) athologist Signature CULTURE No growth 01/29/2022 [facility] (<1,000 3:24 PM CDT LABORATORY-CENT CFU/mL) [facility] LABORATORY Specimen Anatomical Collection Method Collection Time Receive d Time (Source) Location / / Volume Laterality Urine URINE SPECIMEN / Non-Blood / 01/28/2022 10:36 022 Unknown Unknown AM CDT 10:36 AM CDT Cesar Mccollum MD MICROBIOLOGY Performing Organization Address City/State/ZIP Code Phon e Number [facility] [address] [place], [place] [id number] [place] [address] LABORATORY-CENTRAL 2000 LABORATORY (ABNORMAL) UA W/ SEDIMENT EXAM REFLEXED PER CRITERIA (01/28/2022 10:36 AM CDT) [facility] Method Time Signature COLOR Yellow Yellow Color 01/28/2022 [facility] 10:59 AM CDT [facility] CLARITY Clear Clear 01/28/2022 [facility] Clarity 10:59 AM CDT [facility] SPECIFIC 1.025 1.010, 01/28/2022 [facility] GRAVITY,URINE 1.015, 10:59 AM CDT [place] 1.020, 1.025 [facility] PH,URINE 6.0 6.0, 7.0, 01/28/2022 [facility] 8.0, 5.5, 10:59 AM CDT [place] 6.5, 7.5, CLINIC 8.5 UROBILINOGEN, Normal Normal EU/dl 01/28/2022 [facility] 10:59 AM T [facility] PROTEIN, 30 (A) Negative 01/28/2022 [facility] URINE mg/dL 10:59 AM T [facility] GLUCOSE, Negative Negative 01/28/[address] [facility] URINE mg/dL 10:59 AM T [facility] KETONES,URINE Negative Negative 01/28/2022 [facility] mg/dL 10:59 AM T [facility] BILIRUBIN,URI Negative Negative 01/28/2022 [facility] NE 10:59 AM T [facility] OCCULT Large (A) Negative 01/28/[address] [facility] BLOOD,URINE 10:59 AM T [facility] NITRITE Negative Negative 01/28/2022 [facility] 10:59 AM T [facility] LEUKOCYTE Negative Negative 01/28/[address] [facility] ESTERASE 10:59 AM [facility] [address] Specimen Anatomical Collection Method Collection Time Receive d Time (Source) Location / / Volume Laterality Urine URINE SPECIMEN / Non-Blood / 01/28/2022 10:36 022 Unknown Unknown AM CDT 10:36 AM CDT Cesar Mccollum MD URINE Performing Organization Address City/State/ZIP Code Phon e Number [facility] [address] [place] [address] (ABNORMAL) CBC WITH AUTO DIFFERENTIAL (01/28/2022 10:33 AM CDT) [facility] Method Time Signature WHITE BLOOD 5.5 4.5 - 01/28/2022 [facility] COUNT 11.0 10:41 AM T [place] thou/cu CLINIC mm RED BLOOD COUNT 4.13 (L) 4.30 - 01/28/2022 [facility] 5.90 10:41 AM T [place] mil/cu mm CLINIC HEMOGLOBIN 12.9 (L) 13.5 - 01/28/2022 [facility] 17.5 g/dL 10:41 AM T [facility] HEMATOCRIT 38.8 37.0 - 01/28/2022 [facility] 53.0 % 10:41 AM [facility] [address] MCV 94 80 - 100 01/28/2022 [facility] fL 10:41 AM T [facility] MCH 31.2 26.0 - 01/28/2022 [facility] 34.0 pg 10:41 AM T [facility] MCHC 33.2 32.0 - 01/28/2022 [facility] 36.0 g/dL 10:41 AM T [facility] RDW 15.3 11.5 - 01/28/2022 [facility] 15.5 % 10:41 AM T [facility] PLATELET COUNT 225 140 - 440 01/28/2022 [facility] thou/cu 10:41 AM CDT [facility] MPV 9.8 6.5 - 01/28/2022 [facility] 11.0 fL 10:41 AM CDT [facility] % NEUT 76.0 % 01/28/2022 [facility] 10:41 AM CDT [facility] % LYMPH 10.3 % 01/28/2022 [facility] 10:41 AM CDT [facility] % MONO 10.3 % 01/28/2022 [facility] 10:41 AM T [facility] % EOS 3.2 % 01/28/2022 [facility] 10:41 AM T [facility] % BASO 0.2 % 01/28/2022 [facility] 10:41 AM CDT [facility] ABSOLUTE 4.2 1.7 - 7.0 01/28/2022 [facility] NEUTROPHILS thou/cu 10:41 AM CDT [facility] ABSOLUTE 0.6 (L) 0.9 - 2.9 01/28/2022 [facility] LYMPHOCYTES thou/cu 10:41 AM CDT [facility] ABSOLUTE 0.6 <0.9 01/28/2022 [facility] MONOCYTES thou/cu 10:41 AM CDT [facility] ABSOLUTE 0.2 <0.5 01/28/2022 [facility] EOSINOPHILS thou/cu 10:41 AM CDT [facility] ABSOLUTE 0.0 <0.3 01/28/2022 [facility] BASOPHILS thou/cu 10:41 AM CDT [facility] CLINIC Specimen Anatomical Collection Method / Collection Time Recei estefanía Time (Source) Location / Volume Laterality Blood BLOOD SPECIMEN / Venipuncture / 01/28/2022 10:33 01/28 Unknown Unknown AM CDT 10:37 AM CDT Cesar Mccollum MD HEMATOLOGY Performing Organization Address City/State/ZIP Code Phon e Number [facility] [address] [place] [address] HEMOGLOBIN A1C SCREENING (01/28/2022 10:33 AM CDT) P athologist Signature HEMOGLOBIN A1C 5.7 <=6.4 % 01/30/2022 [facility] SCREENING 12:11 PM CDT LABORATORY-CENT RAL LABORATORY Specimen Anatomical Collection Method / Collection Time Recei estefanía Time (Source) Location / Volume Laterality Blood BLOOD SPECIMEN / Venipuncture / 01/28/2022 10:33 01/28 Unknown Unknown AM CDT 10:37 AM CDT Narrative [facility]-CEN[facility]AL LABORAT OR - 01/30/2022 12:11 PM CDT ? (<5.7%) ?Normal ? (5.7% to 6.4%) ? Indicates pr ediabetes ? (>=6.5%) ? Confirms diabetes Falsely low levels may be seen with: Recent Transfusion, Recent Significant B lood Loss, Hemolytic Diseases, or Falsely elevated levels may be seen with : Untreated Anemias, Splenectomy Cesar Mccollum MD CHEMISTRY Performing Organization Address City/State/ZIP Code Phon e Number [facility] [address] [place] [address] LABORATORY-CENTRAL 2000 LABORATORY TSH WITH REFLEX (01/28/2022 10:33 AM CDT) P athologist Signature TSH 2.21 0.35 - 4.94 01/28/2022 [facility] uIU/mL 6:39 PM CDT LABORATORY-CENTR AL LABORATORY Specimen Anatomical Collection Method / Collection Time Recei estefanía Time (Source) Location / Volume Laterality Blood BLOOD SPECIMEN / Venipuncture / 01/28/2022 10:33 01/28 Unknown Unknown AM CDT 10:37 AM CDT Narrative [facility]-CENTRAL LABORAT OR - 01/28/2022 6:39 PM CDT In Adults, TSH values between 5.00 and 10.00 uIU/ml do not necessarily indicate the presence of Hyp othyroidism. Correlation with clinical findings such as presence of goiter and/or Thyroperoxidase (TPO) Antibody ma y be helpful. For more information please refer to NICK 29 07; [phone]: [phone]. Cesar Mccollum MD CHEMISTRY Performing Organization Address City/State/ZIP Code Phon e Number [facility] [address] [place] [address] LABORATORY-CENTRAL 2000 LABORATORY HEPATIC FUNCTION PANEL (01/28/2022 10:33 AM CDT) P athologist Signature ALBUMIN 4.0 3.2 - 4.6 01/28/2022 [facility] g/dL 6:19 PM CDT LABORATORY-[facility] TRAL LABORATORY PROTEIN,TOTAL 6.6 6.0 - 8.0 01/28/2022 [facility] g/dL 6:19 PM CDT [facility]ATORY-[facility] TRAL LABORATORY GLOBULIN 2.6 2.0 - 3.7 01/28/2022 [facility] g/dL 6:19 PM CDT LABORATORY-[facility] TRAL LABORATORY A/G RATIO 1.5 1.0 - 2.0 01/28/2022 [facility] 6:19 PM CDT [facility]ATORY-[facility] TRAL LABORATORY BILIRUBIN,TOTAL 0.8 0.2 - 1.2 01/28/2022 [facility] mg/dL 6:19 PM CDT LABORATORY-[facility] TRAL LABORATORY BILIRUBIN,DIRECT 0.3 0.1 - 0.5 01/28/2022 [facility] mg/dL 6:19 PM CDT LABORATORY-[facility] TRAL LABORATORY BILIRUBIN,INDIRE 0.5 0.2 - 0.8 01/28/[address] [facility] [address] mg/dL 6:19 PM CDT LABORATORY-[facility] [facility] ALK PHOSPHATASE 57 50 - 136 01/28/2022 [facility] IU/L 6:19 PM CDT LAB[facility]ATORY-[facility] ALT (SGPT) 13 8 - 45 01/28/2022 [facility] IU/L 6:19 PM CDT [facility]AT[facility] AST (SGOT) 18 2 - 40 01/28/2022 [facility] IU/L 6:19 PM CDT LAB[facility]ATORY[facility] Specimen Anatomical Collection Method / Collection Time Recei estefanaí Time (Source) Location / Volume Laterality Blood BLOOD SPECIMEN / Venipuncture / 01/28/2022 10:33 01/28 Unknown Unknown AM CDT 10:37 AM CDT Cesar Mccollum MD CHEMISTRY Performing Organization Address City/State/ZIP Code Phon e Number [facility] [address] [place] [address] LABORATORY-CENTRAL 2000 LABORATORY (ABNORMAL) BASIC METABOLIC PANEL (01/28/2022 10:33 AM CDT)Only the most recent of2 resultswithin the time period is included. athologist Signature SODIUM 140 135 - 145 01/28/2022 [facility] mmol/L 6:17 PM CDT [facility]AT[facility] POTASSIUM 4.9 3.5 - 5.0 01/28/2022 [facility] mmol/L 6:17 PM CDT [facility] CHLORIDE 109 98 - 110 01/28/2022 [facility] mmol/L 6:17 PM CDT [facility] CO2,TOTAL 27 21 - 31 01/28/2022 [facility] mmol/L 6:17 PM CDT [facility] ANION GAP 4 (L) 5 - 18 01/28/2022 [facility] 6:17 PM CDT [facility] GLUCOSE 99 65 - 100 01/28/2022 [facility] mg/dL 6:17 PM CDT [facility] CALCIUM 8.9 8.5 - 10.5 01/28/2022 [facility] mg/dL 6:17 PM CDT [facility] BUN 20 8 - 25 01/28/2022 [facility] mg/dL 6:17 PM CDT [facility] CREATININE 1.12 0.72 - 01/28/2022 [facility] 1.25 mg/dL 6:17 PM CDT [facility] BUN/CREAT RATIO 18 10 - 01/28/2022 [facility] 6:17 PM CDT [facility] eGFR 66 (L) >90 01/28/2022 [facility] mL/min/1.7 6:17 PM CDT LABORATORY-[facility] 3m2 [facility] Comment: As of 2021, eGFR is calcu lated by the CKD-EPI creatinine equation without race adjustment. eGFR can be inf luenced by muscle mass, exercise, and diet. The reported eGFR is an estimation only and is only applicable if the renal function is stable. Specimen Anatomical Collection Method / Collection Time Recei estefanía Time (Source) Location / Volume Laterality Blood BLOOD SPECIMEN / Venipuncture / 01/28/2022 10:33 01/28 Unknown Unknown AM CDT 10:37 AM CDT Cesar Mccollum MD CHEMISTRY Performing Organization Address [facility]/ZIP [facility] Phon e Number [facility] [phone] [place] [id number] LABORATORY-CENTRAL 2000 LABORATORY BRAIN NATRIURETIC PEPTIDE (01/18/2022 3:22 PM CDT) P athologist Signature BRAIN FARAZ 97 <100 pg/mL 01/19/2022 [facility] PEPTIDE 8:02 PM CDT LABORATORY-[facility] LABORATORY Specimen Anatomical Collection Method / Collection Time Recei estefanía Time (Source) Location / Volume Laterality Blood BLOOD SPECIMEN / Venipuncture / 01/18/2022 3:22 2021 3:22 Unknown Unknown PM CDT PM CDT Andre Merlos MD CHEMISTRY Performing Organization Address [facility] e Number [facility] [phone] [place] [id number] LABORATORY-CENTRAL 2000 LABORATORY LIPID PANEL W REFLEX MEASURED LDL (01/14/2022 8:55 AM CDT) [facility] gist Method Time Signature CHOLESTEROL,TOTAL 171 100 - 199 01/15/2022 [facility] mg/dL 8:40 AM CDT [facility] LAB[facility] TRIGLYCERIDES 129 <150 01/15/2022 [facility] mg/dL 8:40 AM CDT [facility] HDL CHOLESTEROL 56 >40 mg/dL 01/15/2022 [facility] 8:40 AM CDT [facility] NON-HDL 115 <145 01/15/2022 [facility] CHOLESTEROL mg/dl 8:40 AM CDT [facility]AT[facility] CHOL/HDL RATIO 3.05 <4.50 01/15/2022 [facility] 8:40 AM CDT [facility] LDL CHOLESTEROL 89 <=130 01/15/2022 [facility] mg/dL 8:40 AM CDT [facility] VLDL CHOLESTEROL 26 <=30 01/15/2022 [facility] mg/dL 8:40 AM CDT [facility] PROVIDER ORDERED FASTING 01/15/2022 [facility] STATUS 8:40 AM CDT LAB[facility]AT[facility] Specimen Anatomical Collection Method / Collection Time Recei estefanía Time (Source) Location / Volume Laterality Blood BLOOD SPECIMEN / Venipuncture / 01/14/2022 8:55 2021 8:57 Unknown Unknown AM CDT AM CDT Regan Miller MD CHEMISTRY Performing Organization Address City/State/ZIP Code Phon e Number [facility] [address] [place] [address] LABORATORY-CENTRAL 2000 LABORATORY from Last 3 Months Insurance Payer Benefit Plan / Subscriber ID Effective Dates Phone Addre ss Type Group MEDICARE PART B MEDICARE PART B [id number] 2016-Present ATTN: CLAIMS - HB USE ONLY HB ONLY [address] [place] [address] MEDICARE PART A MEDICARE PART A [id number] 2016-Present ATTN: CLAIMS - HB USE ONLY HB ONLY [address] [place] [address] MEDICA MR MEDICA PRIME [id number] 2014-Present [address] [address] [place] [address] MEDICA MEDICA PRIME [id number] 2016-Present [address] [address] [place] [address] Advance Directives Latest Code Status on File Code Status Date Activated Date Inactivated Comments Full Code 02/29/2020 7:45 PM 03/03/2020 9:21 PM Code Status Discussion: Discussed Full Code 09/15/2016 4:20 PM 09/17/2016 3:21 PM Full Code 09/15/2016 4:11 PM 09/15/2016 4:20 PM Full Code 09/15/2016 10:50 AM 09/15/2016 4:11 PM Care Teams Patrol Commander Relationship Specialty Start Date End Date Cesar Mccollum MD PCP - General Family Practice 03/04/20 [address] [place] [address] Nicola Ware MD Surgery - Urology 03/13/20 [address] [place] [address] Mireya Tan MBBS Hematology - Pathology 03/13/20 [address] [place] [address]
--- OUTSIDE RECORDS SUMMARY | 2022-02-08 20:13 | XMS_ITS | Encounter Summary ---
:1940 Author Organization [facility] Address [address] [place] [address] Care Team Providers Name Role Phone Unavailable Primary Care Provider Unavailable Reason for Visit Radiation Therapy (Routine) - Closed Specialty Diagnoses / Procedures Referred By Contact Refer red To Contact Diagnoses Primary Malignant Neoplasm Of Prostate (HCC) Tereso Frazier M.D. [facility] Procedures Prior Auth Rad Tx [place] IMRT SIMPLE [address] [place] [address] Referral ID Status Reason Start Date Expiration Date Visits Requ ested Visits Authorized [id number] Closed 03/21/2020 03/21/2021 20 20 Encounter Details Date Type Department Care Team Description 03/27/2020 Hospital Encounter Department of Radiation Alisha Frazier, [place]cology in [place] [address] [facility] [address] [place] [address] [phone] Social History Tobacco Use Types Packs/Day Years [...]
--- OUTSIDE RECORDS SUMMARY | 2022-02-08 20:13 | XMS_ITS | Encounter Summary ---
:1940 Author Organization [facility] Address [address] [place] [address] Care Team Providers Name Role Phone Unavailable Primary Care Provider Unavailable Reason for Referral Radiation Therapy (Routine) - Closed Specialty Diagnoses / Procedures Referred By Contact Refer red To Contact Diagnoses Primary Malignant Neoplasm Of Prostate (HCC) Tereso Frazier M.D. 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 [facility] Procedures Initial Rad Onc Treatment Planning CT Simulation [address] [place], [place] [phone] Referral ID Status Reason Start Date Expiration Date Visits Requ ested Visits Authorized [id number] Closed 03/21/2020 03/21/2021 1 1 Encounter Details Date Type Department Care Team Description 03/21/2020 Hospital Encounter Department of Tereso Frazier Malignant Radiation Oncology Maverick Wray Neoplasm Of Prostate in [place], [address] [facility] (HCC) [place], [place] [address] [facility] [address] [place], [place] [phone] (Work) [phone] Social History Tobacco Use Types Packs/Day Years [...] the tongue. documented as of this encounter Procedure Notes Starla Simpson, RTT - 03/21/2020 10:00 AM CSTAssociated Order(s): Initial Rad Onc Treatment Planning CT Simulation Pre-Procedure Diagnose(s): Primary Malignant Neoplasm Of Prostate (HCC) Post-Procedure Diagnose(s): Primary Malignant Neoplasm Of Prostate (HCC) Initial Rad Onc Treatment Planning CT Simulation Date/Time: 03/21/2020 10:17 AM Performed by: Tereso Frazier M.D. Authorized by: Tereso Frazier M.D. Simulation was performed under physician supervision based on physician order in preparation for radiation therapy. Physician was immediately available to provide assistance and direction throughout the procedure. Written consent for treatment was completed or confirmed. The patient was appropriately identified and placed in the treatment position using the necessary immobilization to ensure a reproducible treatment position. Reference soares were placed to facilitate marking of isocenter. Area scanned:Abdomen and Pelvis Contrast used for the simulation procedure: None Patient position: Head first supine Custom immobilization: Vac-tari Motion management: None Bolus: No CT guidance: Following positioning of the patient, a series of slices was obtained to be utilized intreatment planning. CT images were transferred to the [facility] treatment planning system, after a reference isocenter was determined and marked. Segmentation and treatment planning will take place priorto treatment delivery. Patient set up and imaging was appropriate and completed without incident. ITY MECHANIC SUPERVISOR documented in this encounter Plan of Treatment Not on filedocumented as of this encounter Procedures Procedure Name Priority Date/Time Associated Comments Diagnosis INITIAL RAD ONC Routine 03/21/2020 10:00 AM Primary Malignant Results for this TREATMENT PLANNING UTILITY MECHANIC SUPERVISOR Neoplasm Of procedure are in CT SIMULATION Prostate (HCC) the results section. documented in this encounter Results Initial Rad Onc Treatment Planning CT Simulation (03/21/2020 10:00 AM UTILITY MECHANIC SUPERVISOR) Specimen (Source) Anatomical Location Collection Method / Collectio n Time Received Time / Laterality Volume Narrative TORRES ALONZO - 03/21/2020 10:00 AM UTILITY MECHANIC SUPERVISOR Starla Simpson, RTT ? 03/21/2020 10:34 AM Initial Rad Onc Treatment Planning CT Si mulation Date/Time: 03/21/2020 10:17 AM Performed by: Tereso Frazier M.D. Authorized by: Tereso Frazier M.D. Tereso Frazier M.D. RADIATION ONCOLOGY ORDERABLE S Performing Organization Address City/State/ZIP Code Phon e Number [facility] na documented in this encounter Visit Diagnoses Diagnosis Primary Malignant Neoplasm Of Prostate ( HCC) documented in this encounter
--- OUTSIDE RECORDS SUMMARY | 2022-02-08 20:13 | XMS_ITS | Encounter Summary ---
:1940 Author Organization [facility] Address [address] [place] [address] Care Team Providers Name Role Phone Unavailable Primary Care Provider Unavailable Reason for Referral Specialty Diagnoses / Procedures Referred By Contact Refer red To Contact Swetha Soto P.A.-C ., M.S. [facility] Region [address] [place] [phone] Referral ID Status Reason Start Date Expiration Date Visits Requ ested Visits Authorized [facility] A[facility]ESTHETIST Encounter Details Date Type Department Care Team Description 04/01/2020 Hospital Encounter Department of Timothy Frazier M.D. [address] [place] [phone] Primary Malignant Radiation Oncology Rufina Long R.N. [address] [place] [phone] Neoplasm Of Prostate in [place] [facility] (HCC) [place] [address] [place] [phone] Social History Tobacco Use Types Packs/Day Years Used Date Smoking Tobacco: Never Assessed Sex Assigned at Date Recorded Not on file documented as of this encounter Last Filed Vital Signs Vital Sign Reading Time Taken Comments Blood Pressure - - Pulse - - Temperature - - Respiratory Rate - - Oxygen Saturation - - Inhaled Oxygen Concentration - - Weight 88 kg (194 lb 0.1 oz) 04/01/2020 1:00 PM [facility] ANAESTHETIST Height - - Body Mass Index 27.93 03/21/2020 8:19 AM INTENSIVE CARE ANAESTHETIST documented in this encounter Medications at Time [...] 1 T PO D 0 2019 tablet metoprolol succinate Take 50 mg by 0 11/02/2019 (TOPROL-XL) 50 mg 24 hr mouth. tablet clopidogreL (PLAVIX) 75 mg TK 1 T PO QD 0 020 tablet nitroglycerin (NITROSTAT) Place 0.4 mg under 0 0.4 mg SL tablet the tongue. documented as of this encounter Plan of Treatment Scheduled Referrals Name Type Priority Associated Order Schedule Diagnoses Radiation Oncology Outpatient Referral Routine Primary Maligna nt Once for 1 - Nurse education Neoplasm Of Occurrence s starting visit (clinic) Prostate (HCC) 04/01/2020 until 04/01/2020 documented as of this encounter Visit Diagnoses Diagnosis Primary Malignant Neoplasm Of Prostate ( HCC) documented in this encounter
--- OUTSIDE RECORDS SUMMARY | 2022-02-08 20:13 | XMS_ITS ---
:1940 Author Care Team Providers Name Role Phone MASOUD SAUER MD Primary Care Provider [phone] Allergies Code Code System Name Reaction Severity Status Onset NKDA ? Medications Name Status Start Date Stop Date ? ? amlodipine 10 mg tablet Active ? Not avai lable amoxicillin 875 mg-potassium clavulanate 125 mg tablet Completed ? 12/30/2021 TAKE 1 TABLET BY MOUTH TWICE DAILY FOR 7 DAYS atorvastatin 80 mg tablet Active ? Not av ailable TAKE 1 TABLET BY MOUTH EVERY DAY benzonatate 200 mg capsule Active ? Not a vailable furosemide 20 mg tablet Active ? Not avai lable TAKE 1 TABLET BY MOUTH DAILY hydrocortisone 100 mg/60 mL enema Completed ? 12/30/2021 INSERT 1 ENEMA RECTALLY AT BEDTIME FOR 7 DAYS metoprolol succinate ER 50 mg tablet,extended release 24 Active ? Not available hr Myrbetriq 25 mg tablet,extended release Active ? Not available Myrbetriq 50 mg tablet,extended release Active ? Not available TAKE 1 TABLET BY MOUTH EVERY DAY omeprazole 20 mg capsule,delayed release Active ? Not available tamsulosin 0.4 mg capsule Active ? Not av ailable Xarelto 10 mg tablet Active ? Not availab le TAKE 1 TABLET EVERY 24 HOURS Problems None recorded. Procedures Date Name Performed by ? ? Colonoscopy Information not avai lable ? Cystoscopy Information not avai lable Results Lab Results None recorded. Past Encounters 12/30/2021 Increased Frequency of Urination; Malign ant Tumor of Prostate; Hydronephrosis Nicola Ware MD: [address] [place] [address], Ph. Social History Tobacco Smoking Status Never Smoker Vaccine List None recorded. Plan of Care Reminders Provider Appointments None recorded. ? ? Lab None recorded. ? ? Referral None recorded. ? ? Procedures None recorded. ? ? Surgeries None recorded. ? ? Imaging None recorded. ? ? Vitals Height Weight BMI 5 ft 10 in 191 lbs 27.4 kg/m2
--- OUTSIDE RECORDS SUMMARY | 2022-02-08 20:13 | XMS_ITS | Encounter Summary ---
:1940 Author Organization [facility] Address [address] [place] [address] Care Team Providers Name Role Phone Unavailable Primary Care Provider Unavailable Reason for Referral Outpatient (Routine) - Closed Specialty Diagnoses / Procedures Referred By Contact Refer red To Contact Diagnoses Lymphedema Tereso Frazier M.D. [address] [place] [address] Referral ID Status Reason Start Expiration Visits Visits Date Date Requested Authorized [id number] Closed Insurance 03/21/2021 1 1 compatability 0 LE INSTALLER Specialty Diagnoses / Procedures Referred By Contact Refer red To Contact Swetha Soto P.A.-C ., M.S. [facility] Region [address] [place], [place] [phone] Referral ID Status Reason Start Date Expiration Date Visits Requ ested Visits Authorized LE INSTALLER Radiation Therapy (Routine) - Closed Specialty Diagnoses / Procedures Referred By Contact Refer red To Contact Diagnoses Primary Malignant Neoplasm Of Prostate (HCC) Tereso Frazier M.D. [facility] Procedures Prior Auth Rad Tx [place] IMRT SIMPLE [address] [place] [phone] Referral ID Status Reason Start Date Expiration Date Visits Requ ested Visits Authorized [id number] Closed 03/21/2020 03/21/2021 20 20 LE INSTALLER Radiation Therapy (Routine) - Closed Specialty Diagnoses / Procedures Referred By Contact Refer red To Contact Diagnoses Primary Malignant Neoplasm Of Prostate (HCC) Tereso Frazier M.D. [facility] Region Procedures Initial Rad Onc Treatment Planning CT Simulation [address] [place], [place] [address] Referral ID Status Reason Start Date Expiration Date Visits Requ ested Visits Authorized [id number] Closed 03/21/2020 03/21/2021 1 1 LE INSTALLER Reason for Visit Appointment Request (Routine) - Closed Specialty Diagnoses / Procedures Referred By Contact Refer red To Contact Radiation Oncology Diagnoses Prostate Cancer Mireya Tan M.D. [address] [place] [address] Referral ID Status Reason Start Date Expiration Date Visits Requ ested Visits Authorized [id number] Closed 03/13/2020 03/13/2021 1 1 Encounter Details Date Type Department Care Team Description 03/21/2020 Hospital Encounter Department of Tereso Frazier Malignant Neoplasm Of Prostate (HCC) (Primary Dx); Radiation Oncology [facility] in [place], [address] [place], [place] [address] [facility] [address] [place], [place] [phone] (Work) [phone] Social History Tobacco Use Types Packs/Day Years Used Date Smoking Tobacco: Never Assessed Sex Assigned at Date Recorded Not on file documented as of this encounter Last Filed Vital Signs Vital Sign Reading Time Taken Comments Blood Pressure 118/55 03/21/2020 8:19 AM MARBLE INSTALLER Pulse 64 03/21/2020 8:19 AM MARBLE INSTALLER Temperature 36.6 ??C (97.9 ??F) 03/21/2020 8:19 AM MARBLE INSTALLER Respiratory Rate - - Oxygen Saturation - - Inhaled Oxygen Concentration - - Weight 85.1 kg (187 lb 9.8 oz) 03/21/2020 8:19 AM MARBLE INSTALLER Height 177.5 cm (5' 9.88) 03/21/2020 8:19 AM MARBLE INSTALLER Body Mass Index 27.01 03/21/2020 8:19 AM MARBLE INSTALLER documented in this encounter Medications at Time [...] 0 0.4 mg SL tablet the tongue. clopidogreL (PLAVIX) 75 mg TK 1 T PO QD 0 020 tablet documented as of this encounter Consult Notes Tereso Frazier M.D. - 03/21/2020 8:30 AM CST SUBJECTIVE REQUESTING PROVIDER Mireya Tan M.D. REASON FOR CONSULT 1. Primary Malignant Neoplasm Of Prostate (HCC) 2. Lymphedema HISTORY OF PRESENT ILLNESS Mr. Kalen Vega is an 79 y.o. male with locally advanced prostate cancer. I am asked by Dr. Tan to evaluate the patient for radiotherapy. His oncologic history is as follows: 1. [...] March 03, 2020: Patient was admitted to [facility] 4. March 01, 2020: IVC filter placement [...] to small vessel ischemic disease. 10. March 18, 2020: Androgen deprivation therapy was initiated with Eligard and bicalutamide. INTERVAL HISTORY The patient reports that when he was first diagnosed with an elevated PSA in 2011, he modified his diet and increased his exercise but he did not continue to have his PSA checked. He began experiencingsymptoms of right lower extremity swelling and urinary incontinence in October of 2019. He then began experiencing hematuria in January of 2020. The hematuria has resolved since he had a nephrostomy tube placed a few weeks ago. He denies any dysuria. He does have nocturia times 3-6. He has urge urinary incontinence but does not wear a pad. The nephrostomy tube that he has in place is draining clear urine. He denies any pain associated with the nephrostomy tube. He has variable bowel movements. He states that he cannot sense when his bowels are full. He is having bowel movements every day to every third day. He denies any melena, hematochezia, or dyschezia. He has minimal pelvic pain. He rates at 1/10. He has utilized ice on his sacrum but typically will take Tylenol 1000 mg at bedtime and with this he does not awaken from sleep due to pain. His right lower extremity swelling has not improved much since the IVC filter was placed. He notes that his leg is ???tight?? but he denies any weakness, numbness, or tingling. He does have erectile dysfunction, but this is not a concern to him. The patient denies a history of prior radiation therapy, connective tissue disorders, or inflammatory bowel disease. The patient's ECOG performance status is 1. AUA SYMPTOM INDEX March 21, 2020: 19 (1, 3, 2, 5, 3, 2, 3) IIEF-5 March 21, 2020: 8 (1, 2, 1, 2, 2) indicative of moderate erectile dysfunction. REVIEW OF SYSTEMS Review of systems was negative except as documented above. PATIENT REPORTED SYMPTOM SCREEN FATIGUE (Scale: 0 = no fatigue; 10 = worst fatigue you can imagine): 1 PAIN (Scale: 0 = no pain; 10 = worst pain you can imagine): 1 OVERALL QUALITY OF LIFE (Scale: 0 = as bad as can be; 10 = as good as can be): 10 PAST MEDICAL HISTORY 1. Adenomatous polyp of colon 2. Hyperlipidemia 3. Degenerative joint disease 4. Coronary artery disease 5. Right hydronephrosis secondary to ureteral obstruction 6. Acute deep vein thrombosis 7. Prostate cancer, diagnosed February 2020 8. Bilateral sensorineural hearing loss PAST SURGICAL HISTORY 1. Tonsil and adenoidectomy 2. Skin excision, dysplastic nevus 3. Achilles tendon repair 4. Right total hip arthroplasty 5. Bilateral cataract extraction 6. Right nephrostomy tube and IVC filter placement, February 2020 7. Laser surgery for detached retina 8. Coronary stent placement x 2016 SOCIAL HISTORY He lives in [place], [place]. He is to his , Meera. She has Parkinson's. His son Gavin recently moved in with them to help care for his parents. He has 3 children, 5 grandchildren and 13 great grandchildren. 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 He is a never smoker. FAMILY HISTORY Father had lung cancer. He was a smoker. There is no family history of prostate cancer. OBJECTIVE BP 118/55 (BP Location: Left arm, Patient Position: Sitting, Cuff Size: Large) Pulse 64 Temp 36.6 ??C (Temporal) Ht 177.5 cm Wt 85.1 kg BMI 27.01 kg/m?? PHYSICAL EXAM General: Patient is awake, alert, and oriented to person, place, and time. No apparent distress. He looks surprisingly good for all that he is going through. He is by himself. His family members including his sons, Gavin and Favio, his daughter Mindy, and his Hanane are on the phone. ENT: Pupils equal, round, and reactive to light with changes of cataract surgery bilaterally. Scleraanicteric. Oral cavity inspection reveals moist mucous membranes and no visible lesions. Neck: Supple. Lymph: No palpable cervical, supraclavicular, infraclavicular, or axillary adenopathy. Spine: There is no tenderness to palpation of the spine. There is specifically no tenderness over the sacrum. Lungs: Clear to auscultation bilaterally. Heart: Regular rate and rhythm. Normal S1 and S2. No murmurs. Abdomen: Soft, non-tender, non-distended. Normal active bowel sounds are present. There is a right nephrostomy tube in place in the right flank. No signs of infection. Extremities: There is marked edema of the entire right leg all the way up to the inguinal canal. Neurologic: CN II-XII tested and intact. Strength is normal and symmetric in both upper and lower extremities. Sensation is intact to light touch. Gait is normal. Rectal: Deferred. DIAGNOSTICS I reviewed the CT scan of the abdomen and pelvis from February 29, 2020, CT scan of the chest from February 29, 2020, the MRI of the sacrum and coccyx from March 02, 2020, the bone scan from March 03, 2020, and the MRI of the brain from March 17, 2020. I went over the CT of the abdomen and theMRI of the pelvis with the patient. I also reviewed the pathology report from the patient CT-guided biopsy of the sacrum on March 03, 2020. ASSESSMENT / PLAN 1. Stage IVB (cT4, [...] a plan for the addition of Xtandi I had a detailed discussion with the patient and his family members (who were on the phone) regarding the risks, benefits, and alternatives of radiotherapy in this setting. I consulted the NCCN guidelines in formulating my recommendations and reviewed these with him. I explained that the goal of treatment is to control his disease, but that I cannot cure it with radiotherapy. My hope is that we will slow down the disease progression, help alleviate his mild sacral pain, help restore his lymphatic flow on the right side, and potentially help open up his right ureter. I recommend treatment to the prostate and seminal vesicles to a dose of 60 Gy in 20 fractions,to the right pelvic sidewall and sacraldisease to a dose of 55 Gy in 20 fractions, as well as the pelvic lymph nodes to a dose of 44 Gy in 20 fractions utilizing intensity modulated radiotherapy (IMRT). IMRT is indicated so as to spare highradiation dose to the adjacent bladder, rectum, bowels, sacral nerve roots, and hips. I did explain t hat we may have to take a break in the midst of treatment if side effects become significant. We would then resume treatment after a week or 2 of rest. I discussed the logistics as well as the acute and chronic side effects associated with treatment indetail including acute side effects of urinary frequency and urgency, dysuria, bowel frequency and urgency, diarrhea, gaseous bloating and discomfort, radiation dermatitis, loss of pubic hair, and fatigue. Long-term side effects include common mild increase in urinary and bowel frequency, as well as more rare side effects including radiation cystitis (5% risk or less), radiation proctitis (5% or lessrisk), urethral stenoses requiring dilatation (1% risk or less), fistula formation (less than 1% risk), increasing arthritis of the hips, small bowel obstruction, and a very small risk of secondary malignancy. Because of the extreme local invasion that he is experiencing, he is also at risk for sacralplexopathy (5-10% risk), sacral insufficiency fracture, and even a small risk (less than 5%) of bladder rupture due to tumor regression. The patient is also likely to experience worsening erectile dysfunction. I also discussed the side effects of androgen deprivation therapy, which include hot flashes, fatigue, bone loss with prolonged use, mood changes, gynecomastia, loss of muscle strength and power, and complete loss of erectile function until his testosterone levels normalize (which can take up to a year after ADT is discontinued), a low risk of cardiovascular events (5% or less), and a low increased risk of Alzheimer or other dementia (4-6%). He has already started on Eligard and bicalutamide. I spoke with Dr. Tan by phone. She agreed to wait with Xtandi initiation until radiotherapy is underway or potentially even until it is completed. I am referring him to Lymphedema Clinic at [facility] in [place] for their assessment and management of his right lower extremity edema. I did encourage the patient to keep his right leg elevated when he is not walking around. The patient does take multiple supplements. I asked that he stop taking these during the time of hisradiation so as to avoid potential antioxidant interaction with his radiotherapy. He agreed to do so. I also recommended that he begin taking calcium and vitamin-D supplementation. After this discussion, I provided the patient with a written summary of my recommendations. His questions were answered to his verbalized satisfaction. The patient verbally stated that he would like toproceed with treatment and signed the consent form. He will undergo CT simulation today. He will then be scheduled for COVID-19 testing. We will endeavor to begin treatment on March. My thanks to Drs. Tan and Veda for the opportunity to participate in this patient's care. EDUCATION Ready to learn, no apparent learning barriers were identified; learning preferences include listening. Explained diagnosis and treatment plan; patient expressed understanding of the content. CONSENT Discussed the risks, benefits, alternatives, and the necessity of other members of the healthcare team participating in the procedure. All questions answered and consent given. I have spent 65 minutes with this patient today with 60 minutes spent in counseling the patient. Signed by: Tereso Frazier M.D. 03/21/2020 1:06 PM MARBLE INSTALLER Radiation Oncology [facility] [address] [place] [address] LE INSTALLER documented in this encounter Miscellaneous Notes Addendum Note - Cherri Ng - 03/21/2020 8:30 AM MARBLE INSTALLER Encounter addended by: Cherri Ng on: 03/21/2020 3:01 PM Actions taken: Letter saved LE INSTALLER Addendum Note - Tereso Frazier M.D. - 03/21/2020 8:30 AM MARBLE INSTALLER Encounter addended by: Tereso Frazier M.D. on: 03/22/2020 2:26 PM Actions taken: Clinical Note Signed, Flowsheet accepted LE INSTALLER documented in this encounter Plan of Treatment Scheduled Orders Name Type Priority Associated Diagnoses Order S chedule Prior Auth Rad Tx Radiation Oncology Routine Primary Malignant Ordered: 03/21/2020 Neoplasm Of Prostate (HCC) Scheduled Referrals Name Type Priority Associated Diagnoses Order S chedule Radiation Oncology Outpatient Referral Routine Primary Maligna nt Expected: - Nurse education Neoplasm Of Prostate visit (clinic) (HCC) (Approximate) , Expires: 03/21/2021 External referral Outpatient Referral Routine Lymphedema Ord ered: ancillary 03/21/2020 (non-[place]) documented as of this encounter Results Initial Rad Onc Treatment Planning CT Simulation (03/21/2020 10:00 AM MARBLE INSTALLER) Specimen (Source) Anatomical Location Collection Method / Collectio n Time Received Time / Laterality Volume Narrative MELISSA ROSADO - 03/21/2020 10:00 AM MARBLE INSTALLER Starla Simpson, RTT ? 03/21/2020 10:34 AM Initial Rad Onc Treatment Planning CT Si mulation Date/Time: 03/21/2020 10:17 AM Performed by: Tereso Frazier M.D. Authorized by: Tereso Frazier M.D. Tereso Frazier M.D. RADIATION ONCOLOGY ORDERABLE S Performing Organization Address City/State/ZIP Code Phon e Number [place] documented in this encounter Visit Diagnoses Diagnosis Primary Malignant Neoplasm Of Prostate ( HCC) - Primary Lymphedema Primary Malignant Neoplasm Of Prostate ( HCC) documented in this encounter
--- OUTSIDE RECORDS SUMMARY | 2022-02-08 20:13 | XMS_ITS | Encounter Summary ---
:1940 Author Organization [facility] Address [address] [place] [address] Care Team Providers Name Role Phone Unavailable Primary Care Provider Unavailable Encounter Details Date Type Department Care Team Description 09/29/2016 - Hospital Encounter HX [facility] Manav Pizarro, 12/01/[place] [address] (Wo rk) Social History Tobacco Use Types Packs/Day Years Used Date Smoking Tobacco: Never Assessed Sex Assigned at Date Recorded Not on file documented as of this encounter Miscellaneous Notes Miscellaneous - Conversion, Historical Provider Ser - 10/07/2016 8:37 AM CDT Coding Summary-Paper Based CODING DATE: 10/07/2016 FINAL [facility] STATUS: Still Patient/Expected to Rtn O[place] [facility] [place]: Medicare ADMIT DX: REASON FOR VISIT DX: FINAL DX: PRINCIPAL: Z48.812 Encounter for surgical aftercare following surgery on the circulatory system SECONDARY: Z98.890 Other specified postprocedural states PROCEDURES DOCTOR NAME DATE NOTE: The code number assigned matches the documented diagnosis and / or procedure in the patient's chart. However, the narrative phrase printed from the coding software may appear abbreviated, or result in slightly different terminology. Revised Coded By: CLEMENTE JORGE Revised Date Saved: 10/06/2016 11:50 am Source: [facility] POWERCHART Document Id: [id number] documented in this encounter Plan of Treatment Not on filedocumented as of this encounter Visit Diagnoses Not on filedocumented in this encounter
--- OUTSIDE RECORDS SUMMARY | 2022-02-08 20:13 | XMS_ITS | Encounter Summary ---
:1940 Author Organization [facility] Address [address] [place] [address] Care Team Providers Name Role Phone Unavailable Primary Care Provider Unavailable Reason for Visit Radiation Therapy (Routine) - Closed Specialty Diagnoses / Procedures Referred By Contact Refer red To Contact Diagnoses Primary Malignant Neoplasm Of Prostate (HCC) Tereso Frazier M.D. [facility] Procedures Prior Auth Rad Tx [place] IMRT SIMPLE [address] [place] [address] Referral ID Status Reason Start Date Expiration Date Visits Requ ested Visits Authorized [id number] Closed 03/21/2020 03/21/2021 20 20 Encounter Details Date Type Department Care Team Description 04/01/2020 Hospital Encounter Department of Radiation Alisha Frazier, [place] [address] [facility] [address] [place] [phone] Social History Tobacco Use Types Packs/Day Years [...]
--- OUTSIDE RECORDS SUMMARY | 2022-02-08 20:13 | XMS_ITS | Encounter Summary ---
:1940 Author Organization [facility] Address [address] [place] [address] Care Team Providers Name Role Phone Unavailable Primary Care Provider Unavailable Reason for Visit Radiation Therapy (Routine) - Closed Specialty Diagnoses / Procedures Referred By Contact Refer red To Contact Diagnoses Primary Malignant Neoplasm Of Prostate (HCC) Tereso Frazier M.D. [facility] Procedures Prior Auth Rad Tx [place] IMRT SIMPLE [address] [place] [address] Referral ID Status Reason Start Date Expiration Date Visits Requ ested Visits Authorized [id number] Closed 03/21/2020 03/21/2021 20 20 Encounter Details Date Type Department Care Team Description 03/28/2020 Hospital Encounter Department of Radiation Alisha Frazier, [place] [address] [facility] [address] [place] [phone] Social History Tobacco Use Types Packs/Day Years [...]
--- NOTE | 2022-02-08 20:30 | ED.NURSE ---
did irrigate jon with approx 300 ml of ns. returns lt red with urine. did have small clots in returns also. .
--- NOTE | 2022-02-08 20:36 | ED.NURSE ---
was told to return to ed if there is another blockage or other severe sxs. was given a leg bag and a larger night bag for urine .
--- NOTE | 2022-02-08 21:19 | ED.GENADULT ---
HPI - General Adult General Date Seen: 02/08/22 Chief complaint: Urogenital Problems, Male Stated complaint: Post Op complication/ can't urinate Time Seen by Provider: 02/08/22 18:15 Source: patient History of Present Illness HPI narrative: Patient is an 81-year-old male who had a ureteral stent placed on the right today. He says that he has these placed regularly although he was very overdue for this 1 having not had 1 placed for over a year. Nonetheless, he says the procedure went smoothly. He is on Xarelto for DVT but had been off of that for 10 days he says prior to the procedure. He was scheduled to restart that tonight but had not yet done so. He developed urinary retention, was voiding just a tiny amount of bloody urine prior to coming in. Has not had fevers, flank pain, vomiting or other symptoms. He was started on antibiotic by Dr. Ware. Related Data Home Medications Medication Instructions Recorded Confirmed amlodipine 10 mg tablet 10 mg PO .Q24 10/20/21 02/08/22 atorvastatin 40 mg tablet 40 mg PO .QHS 10/20/21 02/08/22 calcium carbonate 600 mg-vitamin 1 cap PO BID 10/20/21 02/08/22 D3 10 mcg (400 unit) capsule metoprolol succinate 50 mg 50 mg PO .Q24 10/20/21 02/08/22 tablet,extended release 24 hr mirabegron 25 mg tablet,extended 25 mg PO Q24H 10/20/21 02/08/22 release 24 hr (Myrbetriq) nitroglycerin 0.4 mg sublingual 0.4 mg sublingual Q5-15M PRN 10/20/21 02/08/22 tablet tamsulosin 0.4 mg capsule 0.4 mg PO Q24H 10/20/21 02/08/22 furosemide 20 mg tablet 20 mg PO .Q24 PRN 01/06/22 02/08/22 Previous Rx's Medication Instructions Recorded enzalutamide 40 mg capsule (Xtandi) 160 mg PO DAILY #120 caps 12/29/21 rivaroxaban 10 mg tablet (Xarelto) 10 mg PO QDAY #30 tabs 01/29/22 Allergies Allergy/AdvReac Type Severity Reaction Status Date / Time No Known Drug Allergies Allergy Verified 02/08/22 18:16 Review of Systems Status of ROS: Reports: 10 or more systems reviewed and unremarkable except as noted in History and below 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 Encounter for counseling regarding advance directives (08/19/05) HTN (hypertension) Surgical History S/P radiation therapy > 12 wks ago Status post cystoscopy with ureteral stent placement Status post hip replacement Social History Smoking Status: Never smoker Do you use any of these nicotine containing products: None Second hand tobacco smoke exposure: No How often do you have a drink containing alcohol: never How often do you have six or more drinks on one occasion: Less than monthly AUDIT-C Alcohol total score: 1 Non-prescribed substance use: denies use service: No Exam Narrative: Exam Narrative: Vital signs reviewed In general, an alert, nontoxic elderly male, comfortable at the time of my exam post Tabares placement. Abdomen: Soft nontender. Back: No CVA tenderness. : Tabares in place, bloody urine out. Skin: Warm dry well perfused. Const: Vital Signs, click to edit/add: Vital Signs - 24 hr 02/08/22 18:11 02/08/22 20:12 Temperature 96.9 F L Pulse Rate [Right Pulse Oximeter] 71 64 Respiratory Rate 16 18 Blood Pressure [Ri ght Upper Arm] 147/83 H 158/85 H Pulse Oximetry 97 98 Oxygen Delivery Me thod Room Air Room Air Documenting provider has reviewed patient's vital signs: yes Course Course Hospital Course: We sent off a UA, he has 3+ protein, 1+ ketones, greater than 100 red cells, greater than 100 white cells, many bacteria. He is already on antibiotics, I do not see any reason to change this. This is likely related to having the stent changed out earlier today. The initial urine output was dark red in color, it is cleared to a more translucent red color. We did flush a couple 100 mL of saline into the bladder, the urine output is remaining a translucent dark pink color. For now, I have recommended that we keep the Tabares in place, have him hold his Xarelto for tonight, and see how he does in terms of the urine clearing over the next 12-24 hours. If the urine clears, he can we have the catheter taken out over the next 1-2 days and restart his Xarelto. If the urine is not clearing, I have asked him to check in with his primary doctor or he can check in with Dr. Ware, as will need to determine when to restart the Xarelto. Obviously we do not want him to be off of that too long; my hope is that this will stabilize overnight and that he will be able to restart tomorrow. If he has further urinary retention or increased bleeding, fevers, vomiting, or other worsening, return to the emergency department. Continue the antibiotic as prescribed by Dr. Ware Vital Signs Vital signs: Initial Vital Signs Temperature 96.9 F L 02/08/22 18:11 Temperature Source Temporal Artery Scan 02/08/22 18:11 Pulse Rate 71 02/08/22 18:11 Respiratory Rate 16 02/08/22 18:11 Blood Pressure 147/83 H 02/08/22 18:11 Blood Pressure Mean 104 02/08/22 18:11 Blood Pressure Position Sitting 02/08/22 18:11 Pulse Oximetry 97 02/08/22 18:11 Oxygen Delivery Method 02/08/22 18:11 Vital Signs Temperature 96.9 F L 02/08/22 18:11 Pulse Rate 71 02/08/22 18:11 Respiratory Rate 16 02/08/22 18:11 Blood Pressure 147/83 H 02/08/22 18:11 Pulse Oximetry 97 02/08/22 18:11 Oxygen Delivery Method 02/08/22 18:11 Temperature 96.9 F L 02/08/22 18:11 Pulse Rate 64 02/08/22 20:12 Respiratory Rate 18 02/08/22 20:12 Blood Pressure 158/85 H 02/08/22 20:12 Pulse Oximetry 98 02/08/22 20:12 Oxygen Delivery Method 02/08/22 20:12 Medical Decision Making Lab Data Labs: Lab Results 02/08/22 Range/Units 19:51 Urine Color Red A (Yellow) Urine Appearance Slightly Cloudy A (Clear) Urine pH 6.5 (5.0-8.5) Ur Specific [place] 1.020 (1.000-1.030) Urine Protein 3+ A (Negative) Urine Glucose (UA) Negative (Negative) Urine Ketones 1+ A (Negative) Urine Blood 3+ A (Negative) Urine Nitrite Positive A (Negative) Urine Bilirubin 2+ A (Negative) Urine Urobilinogen 1.0 (0.2-1.0) Ur Leukocyte Esterase 3+ A (Negative) Urine RBC >100 A (0-2) Urine WBC >100 A (0-5) Ur Squamous Epith Cells None (None-Few) Urine Bacteria Many A (None) Discharge Plan Discharge Clinical Impression: Gross hematuria, Acute urinary retention Patient Disposition: Home, Self-Care Condition: Improved Instructions: Tabares Catheter Placement and Care (ED) Additional Instructions: Hold your Xarelto for today. Push fluids at home. If your urine is clearing, you may be able to have the catheter taken out tomorrow at your clinic and resume your Xarelto. If the urine is not clearing, please check in with your primary care doctor for further instructions. If the Tabares is not draining and you have recurrent symptoms of retention, return to the emergency department. Continue the antibiotic prescribed by your urologist. Prescriptions: No Action atorvastatin 40 mg tablet 40 mg PO .QHS metoprolol succinate 50 mg tablet extended release 24 hr 50 mg PO .Q24 tamsulosin 0.4 mg capsule 0.4 mg PO Q24H amlodipine 10 mg tablet 10 mg PO .Q24 Myrbetriq 25 mg tablet extended release 24 hr 25 mg PO Q24H calcium carbonate-vitamin D3 600 mg-10 mcg (400 unit) capsule 1 cap PO BID Label Comments: with meals nitroglycerin 0.4 mg tablet, sublingual 0.4 mg sublingual Q5-15M PRN Rx Instructions: do not exceed 3 doses per episode furosemide 20 mg tablet 20 mg PO .Q24 PRN Label Comments: TAKE 1 TABLET BY MOUTH DAILY Xtandi 40 mg capsule 160 mg PO DAILY Qty: 120 3RF Rx Instructions: take 4 capsules daily. Xarelto 10 mg tablet 10 mg PO QDAY Qty: 30 1RF Follow Up/Referrals: Cesar Mccollum MD [Primary Care Provider] - Stand Alone Forms: [employer] Info Instructions
== END 2022-02-08 21:55 | disposition home or self-care (01) ==
PROVIDERS: Emergency Provider Emergency Medicine; PCP Family Medicine
DX: R33.9 Retention of urine, unspecified (principal); R31.0 Gross hematuria
CPT/HCPCS: 51702; 81001; 87086; 99283; 99284

== ENCOUNTER 2022-05-26 10:00 | Outpatient (RCR) | payer MEDICARE, OTHER, SELFPAY ==
--- NOTE | 2021-10-19 10:29 | ONC.NURNOTE ---
Authorization: User: Eduarda PartidaJonah Paco Date: 03/20/21 11:14 Type: Eligibility Determination Note... Received request for prior authorization of Xgeva [id number] and Leuprolide [id number]. Patient has Medicare as primary insurance. Per CMS.gov LCD R52055 no prior authorization is required for Xgeva and Leuprolide. Services are based on medical necessity and follows Medicare guidelines.
--- NOTE | 2021-10-20 16:47 | ONC.NURNOTE ---
treatment plans for eligard 22.5 mg q 3 months and denosumab (xgeva) 120mg entered for pt. Request for nursing to clarify frequency for xgeva for pt - only 1 cycle entered. Previous regimen for xgeva in c/s had severel months held or cancelled.
--- NOTE | 2021-11-16 16:24 | ONC.NURNOTE ---
Nldiwdc12 mg daily #30 with 1 refill per verbal order Libia Doherty APRN [facility] is out of the medication returns 12/30/21 in follow up with Dr Tan called to [facility] Last filled by Libia Doherty last month #30
--- NOTE | 2021-12-25 14:16 | ONC.NURNOTE ---
Schedule change Mr. Vega called to request change in appointment with Dr. Tan, treatment, blood draw. He has urology appointment at the same time. HE denies any new concerns or complaints. He has been rescheduled for Tuesday12/29/21 for BD/eligard and xgeva. He will be rescheduled with Dr. Tan for next available appointment.
[2021-12-29 09:33] LABS: Eosinophils Absolute Auto 0.22 K/uL (0.00-0.50); Hematocrit 38.1 % (37.0-53.0); Hemoglobin* 12.4 gm/dL (13.5-17.5); Immature Granulocytes Abs Auto 0.03 K/uL (0.00-0.30); Lymphocytes Percent Auto 10.8 % (20-44); Mean Corpuscular HGB Conc 33 gm/dL (32-36); Mean Corpuscular Hemoglobin 31 pg (26-34); Mean Corpuscular Volume 94 fL (80-100); Neutrophils Percent Auto 75.6 % (42.0-72.0); Platelet Count* 237 K/uL (140-440); RDW Coefficient of Variation % 14.4 % (11.5-15.5); Red Blood Count 4.06 m/uL (4.30-5.90); White Blood Count* 5.44 K/uL (4.50-11.00)
[2021-12-29 09:35] LABS: Slide Review Reflex No
[2021-12-29 09:44] LABS: Chloride* 107 mmol/L (96-114)
[2021-12-29 09:45] VITALS: BP 133/81; PULSE 66; RESP 16; TEMP 36.4; O2SAT 98
[2021-12-29 09:45] LABS: Potassium* 4.3 mmol/L (3.6-5.1); Sodium* 139 mmol/L (135-149)
[2021-12-29 09:47] LABS: Aspartate Amino Transferase* 22 U/L (12-35); Bilirubin Total* 0.7 mg/dL (0.1-1.5); Blood Urea Nitrogen* 17 mg/dL (7-30); Carbon Dioxide* 26 mmol/L (20-32); Creatinine* 1.2 mg/dL (0.5-1.5); Estimated Glomerular Filt Rate 60 ml/min; Total Protein* 6.7 g/dL (6.0-8.3)
[2021-12-29 09:48] LABS: Alanine Aminotransferase* 12 U/L (4-50); Alkaline Phosphatase* 62 U/L (40-150); Calcium* 8.9 mg/dL (8.4-10.6); Glucose* 107 mg/dL (60-115)
[2021-12-29 10:17] LABS: PSA Diagnostic* < 0.06 ng/mL (0.10-4.00)
[2021-12-29] MEDS: LEUPROLIDE ACETATE 22.5 MG (SQ) SYRINGE SUBCUT (10:27)
[2021-12-29] MEDS: DENOSUMAB 120 MG inj SUBCUT (10:28)
--- NOTE | 2021-12-29 14:42 | ONC.NURNOTE ---
Labs reviewed by Dr. Tan, pt called with PSA results. New script for xtandi faxed to [facility].
[2022-02-02 09:13] LABS: Basophils Absolute Auto 0.01 K/uL (0.00-0.30); Basophils Percent Auto 0.2 % (0.0-3.0); Eosinophils Absolute Auto 0.22 K/uL (0.00-0.50); Eosinophils Percent Auto 4.2 % (0.0-7.0); Hematocrit 39.8 % (37.0-53.0); Hemoglobin* 13.1 gm/dL (13.5-17.5); Lymphocytes Percent Auto 14.9 % (20-44); Mean Corpuscular HGB Conc 33 gm/dL (32-36); Mean Corpuscular Hemoglobin 31 pg (26-34); Mean Corpuscular Volume 94 fL (80-100); Neutrophils Absolute Auto 3.66 K/uL (1.7-7.0); Neutrophils Percent Auto 69.7 % (42.0-72.0); Platelet Count* 225 K/uL (140-440); RDW Coefficient of Variation % 14.4 % (11.5-15.5); Red Blood Count 4.25 m/uL (4.30-5.90); White Blood Count* 5.25 K/uL (4.50-11.00)
[2022-02-02 09:20] LABS: Slide Review Reflex No
[2022-02-02 09:26] LABS: Albumin* 4.4 g/dL (3.3-5.0); Chloride* 103 mmol/L (96-114)
[2022-02-02 09:27] LABS: Potassium* 4.7 mmol/L (3.6-5.1); Sodium* 139 mmol/L (135-149)
[2022-02-02 09:29] LABS: Aspartate Amino Transferase* 21 U/L (12-35); Bilirubin Total* 0.7 mg/dL (0.1-1.5); Blood Urea Nitrogen* 21 mg/dL (7-30); Carbon Dioxide* 29 mmol/L (20-32); Creatinine* 1.4 mg/dL (0.5-1.5); Estimated Glomerular Filt Rate 50 ml/min; Total Protein* 7.3 g/dL (6.0-8.3)
[2022-02-02 09:30] LABS: Alanine Aminotransferase* 10 U/L (4-50); Alkaline Phosphatase* 61 U/L (40-150); Calcium* 8.5 mg/dL (8.4-10.6); Glucose* 107 mg/dL (60-115)
--- NOTE | 2022-02-02 09:32 | ONC.NURNOTE ---
Xtandi- Patient Assist Program letter received from [employer] that patient needs to submit proof of income in order to be re-enrolled discussed with patient that the income limit is 300% FPL- José Miguel to check income and will provide documentation per the letter copy of letter given to José Miguel
[2022-02-02 10:07] LABS: PSA Diagnostic* < 0.06 ng/mL (0.10-4.00)
--- NOTE | 2022-02-03 15:12 | ONC.NURNOTE ---
[facility]ana PAP application and 1039 2020 tax return faxed in for re-enrollment for 2022
--- NOTE | 2022-02-10 13:34 | ONC.NURNOTE ---
stent replaced by Dr Good earlier this week was unable to void post stent change and went to the ER and had an indwelling catheter placed Next appt is with Dr Mccollum next week with lab work has been monitoring hematuria as a result of stent change
--- NOTE | 2022-02-12 11:37 | ONC.NURNOTE ---
Xtandi re-enrollment application submitted and approved by [facility] Patient Assistance Program through 04/10/2023 Bhargav was called with this info
--- NOTE | 2022-03-29 11:18 | URNOTE ---
Request received for authorization for Denosumab (J0897) and Leuprolide Acetate (J9217). Prior authorization is not required as services are based on medical necessity and follow Medicare guidelines.
[2022-03-31 13:58] LABS: Albumin* 3.9 g/dL (3.3-5.0); Chloride* 108 mmol/L (96-114); Potassium* 4.2 mmol/L (3.6-5.1); Sodium* 140 mmol/L (135-149)
[2022-03-31 14:00] LABS: Creatinine* 1.1 mg/dL (0.5-1.5); Est. Creatinine Clearance* 53.46; Estimated Glomerular Filt Rate 67 ml/min
[2022-03-31 14:01] LABS: Alanine Aminotransferase* 15 U/L (4-50); Alkaline Phosphatase* 59 U/L (40-150); Aspartate Amino Transferase* 22 U/L (12-35); Bilirubin Total* 0.6 mg/dL (0.1-1.5); Blood Urea Nitrogen* 20 mg/dL (7-30); Calcium* 8.9 mg/dL (8.4-10.6); Carbon Dioxide* 24 mmol/L (20-32); Glucose* 116 mg/dL (60-115); Total Protein* 6.8 g/dL (6.0-8.3)
[2022-03-31 14:21] LABS: Eosinophils Absolute Auto 0.15 K/uL (0.00-0.50); Eosinophils Percent Auto 2.5 % (0.0-7.0); Hematocrit 29.6 % (37.0-53.0); Hemoglobin* 9.4 gm/dL (13.5-17.5); Immature Granulocytes Abs Auto 0.03 K/uL (0.00-0.30); Immature Granulocytes Pct Auto 0.5 %; Mean Corpuscular HGB Conc 32 gm/dL (32-36); Mean Corpuscular Hemoglobin 30 pg (26-34); Mean Corpuscular Volume 93 fL (80-100); Platelet Count* 292 K/uL (140-440); RDW Coefficient of Variation % 14.1 % (11.5-15.5); Red Blood Count 3.19 m/uL (4.30-5.90); White Blood Count* 5.99 K/uL (4.50-11.00)
[2022-03-31 14:29] LABS: Slide Review Reflex No
[2022-03-31 14:33] LABS: PSA Diagnostic* < 0.06 ng/mL (0.10-4.00)
[2022-03-31] MEDS: DENOSUMAB 120 MG inj SUBCUT (15:26)
[2022-03-31] MEDS: LEUPROLIDE ACETATE 22.5 MG (SQ) SYRINGE SUBCUT (15:30)
[2022-04-28 10:18] LABS: Basophils Absolute Auto 0.01 K/uL (0.00-0.30); Basophils Percent Auto 0.2 % (0.0-3.0); Eosinophils Percent Auto 6.2 % (0.0-7.0); Hematocrit 23.7 % (37.0-53.0); Lymphocytes Percent Auto 11.8 % (20-44); Mean Corpuscular HGB Conc 30 gm/dL (32-36); Mean Corpuscular Hemoglobin 27 pg (26-34); Mean Corpuscular Volume 89 fL (80-100); Monocytes Percent Auto 9.3 % (0.0-11.0); Neutrophils Percent Auto 72.5 % (42.0-72.0); Platelet Count* 231 K/uL (140-440); RDW Coefficient of Variation % 14.9 % (11.5-15.5); Red Blood Count 2.65 m/uL (4.30-5.90); White Blood Count* 4.82 K/uL (4.50-11.00)
[2022-04-28 10:28] LABS: Hemoglobin* 7.2 gm/dL (13.5-17.5); Slide Review Reflex No
[2022-04-28 10:30] LABS: Albumin* 3.8 g/dL (3.3-5.0); Chloride* 109 mmol/L (96-114)
[2022-04-28 10:31] LABS: Potassium* 4.7 mmol/L (3.6-5.1); Sodium* 140 mmol/L (135-149)
[2022-04-28 10:33] LABS: Aspartate Amino Transferase* 21 U/L (12-35); Bilirubin Total* 0.5 mg/dL (0.1-1.5); Carbon Dioxide* 24 mmol/L (20-32); Creatinine* 1.3 mg/dL (0.5-1.5); Est. Creatinine Clearance* 45.24; Estimated Glomerular Filt Rate 55 ml/min; Total Protein* 6.4 g/dL (6.0-8.3)
[2022-04-28 10:34] LABS: Alanine Aminotransferase* 16 U/L (4-50); Alkaline Phosphatase* 44 U/L (40-150); Blood Urea Nitrogen* 16 mg/dL (7-30); Calcium* 8.9 mg/dL (8.4-10.6); Glucose* 116 mg/dL (60-115)
[2022-04-28 10:55] VITALS: BP 110/57; PULSE 64; RESP 16; TEMP 37; O2SAT 98
--- NOTE | 2022-04-28 10:57 | ONC.NURNOTE ---
Patient came in for a blood draw and hemoglobin was low. He has been trending low and this has happened in the past so he doesn't get to concerned. Patient states no bleeding for past week but about 1 week ago he had an episode of about 7 bloody stools one after the other that had clots like Leeches. He does state he is symptomatic with fatigue and some SOB (I have all the signs of low hemoglobin). Libia DIAS ordered 1 unit PRBC for tomorrow am and another blood draw next week to recheck hemoglobin. Tar Pot Worker talked with Shakira at Dr. Mccollum's office and let her know that we are giving him the blood and rechecking hemoglobin next week but he will need to be worked up for why this is happening again. Had a colonoscopy last year due to same thing.
[2022-04-29 09:09] VITALS: BP 122/75; PULSE 70; RESP 16; TEMP 35.8; O2SAT 99
[2022-04-29 09:45] VITALS: BP 122/75; PULSE 70; RESP 16; TEMP 35.8; O2SAT 99
[2022-04-29 10:04] VITALS: BP 105/59; PULSE 63; RESP 16; TEMP 36.4; O2SAT 96
[2022-04-29 10:49] VITALS: BP 120/73; PULSE 60; RESP 18; TEMP 36.7; O2SAT 98
[2022-04-29 11:36] VITALS: BP 129/75; PULSE 65; RESP 16; TEMP 36.1; O2SAT 99
[2022-04-29 12:05] VITALS: BP 128/76; PULSE 63; RESP 16; TEMP 36.3; O2SAT 99
--- NOTE | 2022-04-29 16:30 | ONC.NURNOTE ---
Pt states difficulty having xtandi shipped. Filenet Architect call [facility] pharmacy and they found approval for pt assistance and will ship drug out tomorrow 04/30/22. Pt aware.
[2022-05-05 09:11] LABS: Basophils Absolute Auto 0.01 K/uL (0.00-0.30); Basophils Percent Auto 0.2 % (0.0-3.0); Eosinophils Absolute Auto 0.31 K/uL (0.00-0.50); Eosinophils Percent Auto 5.9 % (0.0-7.0); Hemoglobin* 8.2 gm/dL (13.5-17.5); Lymphocytes Percent Auto 11.5 % (20-44); Mean Corpuscular HGB Conc 30 gm/dL (32-36); Mean Corpuscular Hemoglobin 27 pg (26-34); Mean Corpuscular Volume 89 fL (80-100); Neutrophils Percent Auto 74.4 % (42.0-72.0); Platelet Count* 239 K/uL (140-440); RDW Coefficient of Variation % 15.6 % (11.5-15.5); Red Blood Count 3.05 m/uL (4.30-5.90); White Blood Count* 5.22 K/uL (4.50-11.00)
[2022-05-05 09:13] LABS: Slide Review Reflex No
--- NOTE | 2022-05-05 11:42 | ONC.NURNOTE ---
Patient arrived for a CBC due to rectal bleeding and hemoglobin 7.3 last week and received 1 unit PRBC last week. Hemoglobin 8.2 today and patient stated his bleeding has stopped at this time. Patient instructed to go into clinic or call [facility] if bleeding starts back up or patient feeling like his hemoglobin is low. Patient is very knowledgeable regarding signs and symptoms of low hemoglobin. Patient states he is being referred to a specialist per primary MD.
[2022-05-14 08:25] VITALS: BP 114/73; PULSE 62; RESP 18; TEMP 36.1; O2SAT 98
[2022-05-14 08:31] VITALS: BP 114/73; PULSE 62; RESP 18; TEMP 36.1; O2SAT 98
[2022-05-14 08:44] VITALS: BP 109/65; PULSE 62; RESP 18; TEMP 36.4; O2SAT 98
[2022-05-14 09:29] VITALS: BP 112/71; PULSE 56; RESP 18; TEMP 36.2; O2SAT 98
[2022-05-14 10:29] VITALS: BP 128/67; PULSE 58; RESP 16; TEMP 36.7; O2SAT 99
[2022-05-14] MEDS: FUROSEMIDE 10 MG/ML inj 20 MG IV (11:04)
[2022-05-26 10:08] LABS: Basophils Percent Auto 0.2 % (0.0-3.0); Hematocrit 32.6 % (37.0-53.0); Hemoglobin* 9.9 gm/dL (13.5-17.5); Immature Granulocytes Pct Auto 0.2 %; Lymphocytes Percent Auto 8.9 % (20-44); Mean Corpuscular HGB Conc 30 gm/dL (32-36); Mean Corpuscular Hemoglobin 27 pg (26-34); Mean Corpuscular Volume 89 fL (80-100); Monocytes Percent Auto 8.9 % (0.0-11.0); Neutrophils Percent Auto 77.8 % (42.0-72.0); Platelet Count* 245 K/uL (140-440); RDW Coefficient of Variation % 19.4 % (11.5-15.5); Red Blood Count 3.67 m/uL (4.30-5.90); White Blood Count* 4.47 K/uL (4.50-11.00)
[2022-05-26 10:14] LABS: Slide Review Reflex No
[2022-05-26 10:26] LABS: Albumin* 4.1 g/dL (3.3-5.0); Chloride* 111 mmol/L (96-114); Potassium* 4.3 mmol/L (3.6-5.1); Sodium* 140 mmol/L (135-149)
[2022-05-26 10:29] LABS: Alanine Aminotransferase* 16 U/L (4-50); Alkaline Phosphatase* 44 U/L (40-150); Aspartate Amino Transferase* 21 U/L (12-35); Bilirubin Total* 0.7 mg/dL (0.1-1.5); Blood Urea Nitrogen* 17 mg/dL (7-30); Carbon Dioxide* 23 mmol/L (20-32); Creatinine* 1.2 mg/dL (0.5-1.5); Estimated Glomerular Filt Rate 60 ml/min; Glucose* 88 mg/dL (60-115); Total Protein* 6.9 g/dL (6.0-8.3)
[2022-05-26 10:30] LABS: Calcium* 8.9 mg/dL (8.4-10.6)
--- NOTE | 2022-05-26 11:22 | ONC.NURNOTE ---
patient waited for cbc results- reviewed and noted Hg improved reports no bleeding since he started his enema treatments also [place] [facility]
== END 2022-06-27 23:59 | disposition home or self-care (01) ==
LOC: CCIC 10:00
PROVIDERS: Internal Medicine Hematology & Oncology; PCP Family Medicine; Referring Provider Family Medicine; Visit Provider Clinical Nurse Specialist
DX: C61 Malignant neoplasm of prostate (principal); C79.51 Secondary malignant neoplasm of bone
CPT/HCPCS: 36415; 36430; 80053; 84153; 85025; 86850; 86900; 86901; 86922; 96372; 96374; 96401; 99211; 99212; 99214; J0897; J1940; J9217; P9016

== ENCOUNTER 2022-12-01 15:29 | Outpatient (CLI) | payer MEDICARE, OTHER, SELFPAY | END 2022-12-01 15:30 | disposition home or self-care (01) | LOC: AMB 12-04 19:36 | PROVIDERS: PCP Family Medicine; Visit Provider Family Medicine | DX: I82.401 Acute embolism and thrombosis of unspecified deep veins of right lower extremity (principal); C61 Malignant neoplasm of prostate | CPT/HCPCS: A0425; A0429 ==

== ENCOUNTER 2022-12-24 11:00 | Outpatient (RCR) | payer MEDICARE, OTHER, SELFPAY ==
[2022-06-29 09:28] LABS: Eosinophils Absolute Auto 0.22 K/uL (0.00-0.50); Hematocrit 34.9 % (37.0-53.0); Hemoglobin* 11.1 gm/dL (13.5-17.5); Immature Granulocytes Abs Auto 0.01 K/uL (0.00-0.30); Immature Granulocytes Pct Auto 0.2 %; Lymphocytes Percent Auto 8.7 % (20-44); Mean Corpuscular HGB Conc 32 gm/dL (32-36); Mean Corpuscular Hemoglobin 30 pg (26-34); Mean Corpuscular Volume 95 fL (80-100); Monocytes Percent Auto 6.3 % (0.0-11.0); Neutrophils Percent Auto 80.8 % (42.0-72.0); Platelet Count* 233 K/uL (140-440); RDW Coefficient of Variation % 22.6 % (11.5-15.5); Red Blood Count 3.69 m/uL (4.30-5.90); White Blood Count* 5.53 K/uL (4.50-11.00)
[2022-06-29 09:39] LABS: Slide Review Reflex Yes
[2022-06-29 09:45] LABS: Chloride* 108 mmol/L (96-114)
[2022-06-29 09:46] LABS: Potassium* 4.4 mmol/L (3.6-5.1); Sodium* 139 mmol/L (135-149)
[2022-06-29 09:48] LABS: Aspartate Amino Transferase* 19 U/L (12-35); Bilirubin Total* 0.5 mg/dL (0.1-1.5); Carbon Dioxide* 26 mmol/L (20-32); Creatinine* 1.2 mg/dL (0.5-1.5); Estimated Glomerular Filt Rate 60 ml/min; Total Protein* 6.7 g/dL (6.0-8.3)
[2022-06-29 09:49] LABS: Alanine Aminotransferase* 15 U/L (4-50); Alkaline Phosphatase* 42 U/L (40-150); Blood Urea Nitrogen* 17 mg/dL (7-30); Calcium* 9.1 mg/dL (8.4-10.6); Glucose* 131 mg/dL (60-115)
[2022-06-29 09:55] LABS: Slide Review Acceptable Review (Acceptable)
[2022-06-29 10:19] LABS: PSA Diagnostic* < 0.06 ng/mL (0.10-4.00)
[2022-06-29] MEDS: LEUPROLIDE ACETATE 22.5 MG (SQ) SYRINGE SUBCUT (10:43)
[2022-06-29] MEDS: DENOSUMAB 120 MG inj SUBCUT (10:43)
--- NOTE | 2022-07-21 16:52 | ONC.NURNOTE ---
Pt called reporting he had a CBC checked at [facility] per standing order from Dr. Mccollum, as he is feeling his Hgb is low. His symptoms are dizziness, light-headedness and is pale, consistent with when he has been anemic in the past. He reports he has been following with Dr. Mccollum and Alise to his ongoing issue with frequent stools with blood clots. He reports this Hgb today is 7.9 and is asking about a transfusion. Lm for Dr. Mccollum requesting transfusion order, as he has ordered PRBC in the past for this GI issue. Pt also to call tomorrow () am to f/u request for transfusion. If orders obtained, pt possibly able to have T&C 07/22 and transfusion 07/23. Nsg to f/u with pt Thurs 07/22.
[2022-07-23] VITALS (10 sets, daily range): BP systolic 102–137; BP diastolic 63–77; PULSE 53–91; RESP 16–18; TEMP 35.7–36.1; O2SAT 98–100
[2022-07-23] MEDS: FUROSEMIDE 10 MG/ML inj 20 MG IV (15:28)
[2022-07-27 09:05] LABS: Basophils Percent Auto 0.2 % (0.0-3.0); Eosinophils Percent Auto 6.5 % (0.0-7.0); Hematocrit 32.9 % (37.0-53.0); Hemoglobin* 10.4 gm/dL (13.5-17.5); Immature Granulocytes Pct Auto 1.1 %; Lymphocytes Percent Auto 10.3 % (20-44); Mean Corpuscular HGB Conc 32 gm/dL (32-36); Mean Corpuscular Hemoglobin 29 pg (26-34); Mean Corpuscular Volume 91 fL (80-100); Monocytes Percent Auto 9.7 % (0.0-11.0); Neutrophils Percent Auto 72.2 % (42.0-72.0); Platelet Count* 231 K/uL (140-440); RDW Coefficient of Variation % 18.4 % (11.5-15.5); Red Blood Count 3.62 m/uL (4.30-5.90); White Blood Count* 4.45 K/uL (4.50-11.00)
[2022-07-27 09:07] LABS: Slide Review Reflex No
[2022-07-27 09:30] LABS: Albumin* 3.8 g/dL (3.3-5.0); Chloride* 110 mmol/L (96-114); Sodium* 138 mmol/L (135-149)
[2022-07-27 09:31] LABS: Potassium* 4.6 mmol/L (3.6-5.1)
[2022-07-27 09:33] LABS: Alkaline Phosphatase* 44 U/L (40-150); Aspartate Amino Transferase* 19 U/L (12-35); Bilirubin Total* 0.5 mg/dL (0.1-1.5); Blood Urea Nitrogen* 21 mg/dL (7-30); Carbon Dioxide* 23 mmol/L (20-32); Creatinine* 1.3 mg/dL (0.5-1.5); Estimated Glomerular Filt Rate 55 ml/min; Total Protein* 6.2 g/dL (6.0-8.3)
[2022-07-27 09:34] LABS: Alanine Aminotransferase* 15 U/L (4-50); Calcium* 8.5 mg/dL (8.4-10.6); Glucose* 122 mg/dL (60-115)
--- NOTE | 2022-08-19 15:06 | PC.NURSE ---
Pt called today to ask if [facility] provides GI services such as cauterization of blood vessels in the bowels as this was recommended to him by [facility]. Kalen is having a hard time navigating the [facility] system and wondered if he could do this in [place] with Dr. Davila (who did his colonoscopy in 2020). RN contacted pt's PCP office and asked if a RN in Dr. Mccollum's clinic could help Kalen either a) get a hold of and schedule with [facility] or b) get referred to Dr. Davila. Pt was updated and appreciates the help. Dr. Mccollum's RN is off for the rest of the day and will call with any further questions tomorrow, 08/20/2022.
[2022-08-23 14:16] LABS: Eosinophils Absolute Auto 0.05 K/uL (0.00-0.50); Eosinophils Percent Auto 0.8 % (0.0-7.0); Hematocrit 22.4 % (37.0-53.0); Lymphocytes Percent Auto 6.8 % (20-44); Mean Corpuscular HGB Conc 30 gm/dL (32-36); Mean Corpuscular Hemoglobin 27 pg (26-34); Mean Corpuscular Volume 89 fL (80-100); Monocytes Percent Auto 6.4 % (0.0-11.0); Platelet Count* 245 K/uL (140-440); RDW Coefficient of Variation % 16.2 % (11.5-15.5); Red Blood Count 2.51 m/uL (4.30-5.90); White Blood Count* 6.61 K/uL (4.50-11.00)
[2022-08-23 14:23] LABS: Hemoglobin* 6.7 gm/dL (13.5-17.5)
[2022-08-23 14:24] LABS: Slide Review Reflex Yes
[2022-08-23 14:25] LABS: Slide Review Acceptable Review (Acceptable)
[2022-08-23 14:31] LABS: Albumin* 3.9 g/dL (3.3-5.0); Chloride* 104 mmol/L (96-114); Potassium* 4.6 mmol/L (3.6-5.1); Sodium* 137 mmol/L (135-149)
[2022-08-23 14:33] LABS: Bilirubin Total* 0.3 mg/dL (0.1-1.5); Creatinine* 1.3 mg/dL (0.5-1.5); Estimated Glomerular Filt Rate 55 ml/min
[2022-08-23 14:34] LABS: Alanine Aminotransferase* 14 U/L (4-50); Alkaline Phosphatase* 43 U/L (40-150); Aspartate Amino Transferase* 19 U/L (12-35); Blood Urea Nitrogen* 23 mg/dL (7-30); Calcium* 8.7 mg/dL (8.4-10.6); Carbon Dioxide* 24 mmol/L (20-32); Glucose* 100 mg/dL (60-115); Total Protein* 6.3 g/dL (6.0-8.3)
--- NOTE | 2022-08-23 14:40 | ONC.NURNOTE ---
Hgb 6.7 today, it was 7.8 on 08/20/22. Lab results faxed to Dr. Mccollum at [facility]. Pt already scheduled for a 2 units of blood on 08/24/22. Blood transfusion ordered by Dr. Mccollum.
[2022-08-24] VITALS (9 sets, daily range): BP systolic 115–152; BP diastolic 57–84; PULSE 64–73; RESP 1–18; TEMP 36.2–36.9; O2SAT 95–100
[2022-08-24] MEDS: FUROSEMIDE 10 MG/ML inj 20 MG IVP (13:11)
[2022-09-14] VITALS (9 sets, daily range): BP systolic 116–149; BP diastolic 70–81; PULSE 56–130; RESP 16–18; TEMP 36.2–36.8; O2SAT 96–99
[2022-09-14] MEDS: FUROSEMIDE 10 MG/ML inj 20 MG IV (14:52)
[2022-09-27 13:23] LABS: Eosinophils Absolute Auto 0.17 K/uL (0.00-0.50); Eosinophils Percent Auto 3.5 % (0.0-7.0); Hematocrit 26.9 % (37.0-53.0); Hemoglobin* 8.2 gm/dL (13.5-17.5); Immature Granulocytes Abs Auto 0.01 K/uL (0.00-0.30); Immature Granulocytes Pct Auto 0.2 %; Lymphocytes Percent Auto 10.8 % (20-44); Mean Corpuscular HGB Conc 31 gm/dL (32-36); Mean Corpuscular Hemoglobin 27 pg (26-34); Mean Corpuscular Volume 87 fL (80-100); Monocytes Percent Auto 11.6 % (0.0-11.0); Neutrophils Percent Auto 73.9 % (42.0-72.0); Platelet Count* 256 K/uL (140-440); Red Blood Count 3.09 m/uL (4.30-5.90); White Blood Count* 4.92 K/uL (4.50-11.00)
[2022-09-27 13:30] LABS: Slide Review Reflex No
[2022-09-27 13:36] LABS: Albumin* 3.9 g/dL (3.3-5.0); Chloride* 107 mmol/L (96-114); Potassium* 4.3 mmol/L (3.6-5.1); Sodium* 133 mmol/L (135-149)
[2022-09-27 13:38] LABS: Bilirubin Total* 0.5 mg/dL (0.1-1.5); Creatinine* 1.3 mg/dL (0.5-1.5); Estimated Glomerular Filt Rate 55 ml/min
[2022-09-27 13:39] LABS: Alanine Aminotransferase* 15 U/L (4-50); Alkaline Phosphatase* 44 U/L (40-150); Aspartate Amino Transferase* 22 U/L (12-35); Blood Urea Nitrogen* 14 mg/dL (7-30); Calcium* 9.1 mg/dL (8.4-10.6); Carbon Dioxide* 25 mmol/L (20-32); Glucose* 98 mg/dL (60-115); Total Protein* 6.4 g/dL (6.0-8.3)
[2022-09-27 14:10] LABS: PSA Diagnostic* < 0.06 ng/mL (0.10-4.00)
--- NOTE | 2022-09-27 15:13 | ONC.NURNOTE ---
Treatment plan: Xgeva Mr. Vega follows at our clinic with [facility] for medical management of metastatic prostate cancer. He was seen in clinic today by Dr. Jacqueline Tan. As one part of his treatment, he is receiving xgeva (denosumab) every 3 months. I have entered a new treatment plan for 90 day regimen, which is now available, for 2 cycles on behalf of [address] Tan. She verbally confirmed that he is to receive this treatment every 3 months
[2022-09-27] MEDS: DENOSUMAB 120 MG inj SUBCUT (15:15)
[2022-09-27] MEDS: LEUPROLIDE ACETATE 22.5 MG (SQ) SYRINGE SUBCUT (15:16)
[2022-09-28 08:14] VITALS: BP 107/70; PULSE 69; RESP 16; TEMP 36; O2SAT 97
[2022-09-28 08:52] VITALS: BP 109/70; PULSE 69; RESP 16; TEMP 36; O2SAT 97
[2022-09-28 09:11] VITALS: BP 125/68; PULSE 59; RESP 16; TEMP 36.3; O2SAT 97
[2022-09-28 09:56] VITALS: BP 117/67; PULSE 59; RESP 18; TEMP 36.3; O2SAT 99
[2022-09-28 10:56] VITALS: BP 127/79; PULSE 59; RESP 16; TEMP 36.2; O2SAT 99
[2022-09-28 11:33] VITALS: BP 123/74; PULSE 58; RESP 16; TEMP 36.4; O2SAT 100
[2022-10-25 09:14] LABS: Basophils Percent Auto 0.2 % (0.0-3.0); Eosinophils Percent Auto 6.3 % (0.0-7.0); Immature Granulocytes Pct Auto 0.2 %; Mean Corpuscular HGB Conc 29 gm/dL (32-36); Mean Corpuscular Hemoglobin 25 pg (26-34); Mean Corpuscular Volume 86 fL (80-100); Monocytes Percent Auto 9.7 % (0.0-11.0); Neutrophils Percent Auto 72.6 % (42.0-72.0); Platelet Count* 242 K/uL (140-440); RDW Coefficient of Variation % 16.6 % (11.5-15.5); Red Blood Count 3.01 m/uL (4.30-5.90); White Blood Count* 4.44 K/uL (4.50-11.00)
[2022-10-25 09:20] LABS: Hemoglobin* 7.6 gm/dL (13.5-17.5); Slide Review Reflex Yes
[2022-10-25 09:21] LABS: Slide Review Acceptable Review (Acceptable)
[2022-10-25 09:46] LABS: Albumin* 3.8 g/dL (3.3-5.0); Chloride* 107 mmol/L (96-114); Potassium* 3.9 mmol/L (3.6-5.1); Sodium* 139 mmol/L (135-149)
[2022-10-25 09:48] LABS: Bilirubin Total* 0.4 mg/dL (0.1-1.5); Carbon Dioxide* 24 mmol/L (20-32); Creatinine* 1.3 mg/dL (0.5-1.5); Estimated Glomerular Filt Rate 55 ml/min; Total Protein* 6.4 g/dL (6.0-8.3)
[2022-10-25 09:49] LABS: Alanine Aminotransferase* 15 U/L (4-50); Alkaline Phosphatase* 49 U/L (40-150); Aspartate Amino Transferase* 21 U/L (12-35); Blood Urea Nitrogen* 21 mg/dL (7-30); Calcium* 8.6 mg/dL (8.4-10.6); Glucose* 106 mg/dL (60-115)
[2022-10-26 12:38] VITALS: BP 119/76; PULSE 77; RESP 16; TEMP 36.3; O2SAT 98
[2022-10-26 13:16] VITALS: BP 119/76; PULSE 77; RESP 16; TEMP 36.3; O2SAT 98
[2022-10-26 13:34] VITALS: BP 125/78; PULSE 70; RESP 16; TEMP 36.9; O2SAT 98
[2022-10-26 14:19] VITALS: BP 127/71; PULSE 66; RESP 16; TEMP 36.4; O2SAT 99
[2022-10-26 15:14] VITALS: BP 128/79; PULSE 70; RESP 18; TEMP 36.5; O2SAT 97
[2022-10-26 15:44] VITALS: BP 135/80; PULSE 65; RESP 18; TEMP 36.4; O2SAT 99
[2022-11-12] VITALS (10 sets, daily range): BP systolic 122–158; BP diastolic 62–80; PULSE 62–87; RESP 18–20; TEMP 36.4–37.1; O2SAT 98–100
[2022-11-12] MEDS: FUROSEMIDE 10 MG/ML inj 20 MG IVP (15:39)
[2022-11-24 08:10] VITALS: BP 118/68; PULSE 78; RESP 18; TEMP 36.6; O2SAT 97
[2022-11-24 08:42] LABS: Eosinophils Percent Auto 3.3 % (0.0-7.0); Hematocrit 28.5 % (37.0-53.0); Hemoglobin* 8.5 gm/dL (13.5-17.5); Immature Granulocytes Abs Auto 0.01 K/uL (0.00-0.30); Immature Granulocytes Pct Auto 0.2 %; Mean Corpuscular HGB Conc 30 gm/dL (32-36); Mean Corpuscular Hemoglobin 26 pg (26-34); Mean Corpuscular Volume 87 fL (80-100); Neutrophils Percent Auto 82.5 % (42.0-72.0); Platelet Count* 212 K/uL (140-440); Red Blood Count 3.28 m/uL (4.30-5.90); White Blood Count* 6.15 K/uL (4.50-11.00)
[2022-11-24 08:44] LABS: Slide Review Reflex No
[2022-11-24 09:03] LABS: Albumin* 3.5 g/dL (3.3-5.0); Chloride* 106 mmol/L (96-114); Potassium* 4.2 mmol/L (3.6-5.1); Sodium* 138 mmol/L (135-149)
[2022-11-24 09:05] LABS: Bilirubin Total* 0.5 mg/dL (0.1-1.5); Creatinine* 1.6 mg/dL (0.5-1.5); Est. Creatinine Clearance* 39.53; Estimated Glomerular Filt Rate 42 ml/min
[2022-11-24 09:06] LABS: Alanine Aminotransferase* 16 U/L (4-50); Alkaline Phosphatase* 49 U/L (40-150); Aspartate Amino Transferase* 22 U/L (12-35); Blood Urea Nitrogen* 25 mg/dL (7-30); Calcium* 8.6 mg/dL (8.4-10.6); Carbon Dioxide* 21 mmol/L (20-32); Glucose* 145 mg/dL (60-115); Total Protein* 6.1 g/dL (6.0-8.3)
[2022-12-01 09:09] LABS: Hemoglobin* 7.6 gm/dL (13.5-17.5)
[2022-12-01 09:33] VITALS: BP 128/74; PULSE 65; RESP 16; TEMP 36.3; O2SAT 100
[2022-12-01 09:53] VITALS: BP 106/61; RESP 16; TEMP 36.3; O2SAT 99
[2022-12-01 10:38] VITALS: BP 127/78; RESP 16; TEMP 36.3; O2SAT 96
[2022-12-01 11:34] VITALS: BP 121/61; PULSE 66; RESP 16; TEMP 36.3; O2SAT 98
[2022-12-01 11:38] VITALS: BP 131/69; PULSE 62; RESP 16; TEMP 36.3; O2SAT 99
--- NOTE | 2022-12-01 13:40 | PC.NURSE ---
[facility] called for possible transfer through [facility], provider Komal Doherty. Jocelyne is full, united as one bed. Awaiting call back. Libia's phone number provided for provider to provider call.
[2022-12-01 15:00] VITALS: BP 148/80; PULSE 66; RESP 18; TEMP 36.8; O2SAT 99
--- NOTE | 2022-12-01 16:12 | ONC.NURNOTE ---
Pt arrived for blood transfusion this am. VSS. Hgb recheck 7.6. Pt states he has not had any bloody stools for 2 days. Hgb was 8.1 on 11/29/22. Pt had significant right lower extremity swelling, pt states pain he is uncomfortable standing for long periods of time. Pt has noticed increased swelling this last week, today pt also has clear serous drainage for right villafana area. Pt has been off xarelto and plavix, xarelto was advised to hold due to continued rectal bleeding. Rehab Nurse discussed with Libia Camargo APRN and order received to obtain ultrasound to r/o DVT. Results came back positive for blood clot. Pt transferred to [facility] ER via ambulance at 1515.
--- NOTE | 2022-12-03 11:29 | PC.NURSE ---
Addendum entered by Hayde Gee RN 12/03/22 11:33: Also of note, pt reports that he had a large amount of rectal bleeding last night. He is overall feeling pretty good. Original Note: Called pt today to check in after recent hospitalization for large LE DVT. Pt states that he's home and doing well. His leg is wrapped and he's working on re-hydrating and is back to eating after being NPO most of his hospitalization. Per Libia Doherty, ARUN SIGN WRITER HAND, pt is scheduled for repeat LE Doppler on 12/08/2022 at 0815 followed by labs at [facility] at 0930. Pt agrees with this plan and verbalized understanding. Support offered.
[2022-12-08] VITALS (10 sets, daily range): BP systolic 114–128; BP diastolic 55–72; PULSE 58–69; RESP 16–18; TEMP 35.9–36.8; O2SAT 96–98
[2022-12-10 08:15] LABS: Basophils Absolute Auto 0.01 K/uL (0.00-0.30); Basophils Percent Auto 0.1 % (0.0-3.0); Eosinophils Absolute Auto 0.31 K/uL (0.00-0.50); Eosinophils Percent Auto 4.3 % (0.0-7.0); Hematocrit 30.7 % (37.0-53.0); Hemoglobin* 9.2 gm/dL (13.5-17.5); Immature Granulocytes Abs Auto 0.02 K/uL (0.00-0.30); Immature Granulocytes Pct Auto 0.3 %; Lymphocytes Percent Auto 8.1 % (20-44); Mean Corpuscular HGB Conc 30 gm/dL (32-36); Mean Corpuscular Hemoglobin 26 pg (26-34); Mean Corpuscular Volume 87 fL (80-100); Neutrophils Percent Auto 79.2 % (42.0-72.0); Platelet Count* 290 K/uL (140-440); RDW Coefficient of Variation % 18.9 % (11.5-15.5); Red Blood Count 3.52 m/uL (4.30-5.90); White Blood Count* 7.14 K/uL (4.50-11.00)
[2022-12-10 08:18] LABS: Slide Review Reflex No
--- NOTE | 2022-12-14 10:57 | PC.NURSE ---
Called [facility] to provide some background about Kalen and his medical team in [place] in light of him being referred to [facility]. Notes were taken. Referral hadn't been received yet but it can take a few days per the bailer tenders supervisor. Kalen updated. Pt will check in with [place] if he hasn't heard by end of this week.
[2022-12-16 09:17] LABS: Eosinophils Absolute Auto 0.19 K/uL (0.00-0.50); Eosinophils Percent Auto 3.9 % (0.0-7.0); Hematocrit 27.8 % (37.0-53.0); Hemoglobin* 8.1 gm/dL (13.5-17.5); Lymphocytes Percent Auto 11.8 % (20-44); Mean Corpuscular HGB Conc 29 gm/dL (32-36); Mean Corpuscular Hemoglobin 26 pg (26-34); Mean Corpuscular Volume 88 fL (80-100); Monocytes Percent Auto 9.3 % (0.0-11.0); Platelet Count* 324 K/uL (140-440); RDW Coefficient of Variation % 18.4 % (11.5-15.5); Red Blood Count 3.17 m/uL (4.30-5.90); White Blood Count* 4.83 K/uL (4.50-11.00)
[2022-12-16 09:29] LABS: Slide Review Reflex Yes
[2022-12-16 09:58] LABS: Slide Review Acceptable Review (Acceptable)
--- NOTE | 2022-12-16 10:00 | ONC.NURNOTE ---
Reviewed labs with FRANNY Reza. Patient stated he has had 5 episodes of bloody stools with clots. 12/09 X2, 12/11 X2, 12/13 X2, 12/14 X2. Given that these stools have occured and hbg has dropped, verbal order for 1 unit PRBC was placed by Libia Doherty. Will transfuse today.
[2022-12-16 11:34] VITALS: BP 108/65; PULSE 59; RESP 16; TEMP 36.7; O2SAT 97
[2022-12-16 11:53] VITALS: BP 123/74; PULSE 60; RESP 16; TEMP 37.1; O2SAT 98
[2022-12-16 12:38] VITALS: BP 133/83; PULSE 58; RESP 16; TEMP 36.4; O2SAT 100
[2022-12-16 13:45] VITALS: BP 153/85; PULSE 56; RESP 16; TEMP 36.6; O2SAT 100
[2022-12-21 10:47] LABS: Eosinophils Absolute Auto 0.29 K/uL (0.00-0.50); Eosinophils Percent Auto 4.7 % (0.0-7.0); Hematocrit 26.3 % (37.0-53.0); Lymphocytes Percent Auto 9.9 % (20-44); Mean Corpuscular HGB Conc 30 gm/dL (32-36); Mean Corpuscular Hemoglobin 26 pg (26-34); Mean Corpuscular Volume 86 fL (80-100); Monocytes Percent Auto 8.1 % (0.0-11.0); Neutrophils Percent Auto 77.3 % (42.0-72.0); Platelet Count* 275 K/uL (140-440); RDW Coefficient of Variation % 17.3 % (11.5-15.5); Red Blood Count 3.06 m/uL (4.30-5.90); White Blood Count* 6.15 K/uL (4.50-11.00)
[2022-12-21 10:52] LABS: Slide Review Reflex No
[2022-12-21 11:30] VITALS: BP 118/61; PULSE 65; RESP 14; TEMP 36.1; O2SAT 97
[2022-12-21 13:34] VITALS: BP 123/66; PULSE 70; RESP 14; TEMP 36; O2SAT 98
[2022-12-21 13:53] VITALS: BP 128/58; PULSE 70; RESP 14; TEMP 36; O2SAT 100
[2022-12-21 14:40] VITALS: BP 128/70; PULSE 76; RESP 14; TEMP 35.9; O2SAT 96
[2022-12-21 14:41] VITALS: BP 124/68; PULSE 66; RESP 16; TEMP 36; O2SAT 98
[2022-12-21] MEDS: 0.9 % SODIUM CHLORIDE 250 ml IV (15:14)
--- NOTE | 2022-12-21 15:41 | ONC.NURNOTE ---
Arrived for labs at 1030am. hgb 8.0. states tired no other symptoms except has had 5 stools this week with clots. [address] Tan. tiny infusion well. vs wnl. LS Cl Heart reg.
[2022-12-21 16:15] VITALS: BP 129/72; PULSE 66; RESP 15; TEMP 36.1; O2SAT 98
[2022-12-24 10:05] LABS: Hemoglobin* 7.9 gm/dL (13.5-17.5)
[2022-12-24 10:55] VITALS: BP 116/70; PULSE 78; RESP 16; TEMP 36.2; O2SAT 98
[2022-12-24 11:59] VITALS: BP 116/70; PULSE 78; RESP 16; TEMP 36.2; O2SAT 98
--- NOTE | 2022-12-24 12:11 | PC.NURSE ---
Pt called this morning to request a Hgb check. RN discussed with Libia Doherty APRN CONTROLS PROJECT ENGINEER and labs were ordered. Pt came to [facility] for blood draw and Hgb resulted 7.9. Discussed results with ARUN Reza and 1 unit of blood ordered. Kalen shares that after his last transfusion on Tuesday he had significant clots per his rectum overnight and again on . Pt is going to have a full colonoscopy on Tuesday morning to hopefully cauterize the bleeding vessels. Pt will be back on Tuesday for labs, Eligard, and Xgeva.
[2022-12-24 12:19] VITALS: BP 130/77; PULSE 61; RESP 16; TEMP 36.2; O2SAT 100
[2022-12-24 13:04] VITALS: BP 145/80; PULSE 63; RESP 16; TEMP 36.3; O2SAT 100
[2022-12-24 14:22] VITALS: BP 123/66; PULSE 69; RESP 18; TEMP 36.4; O2SAT 100
[2022-12-24 15:01] VITALS: BP 135/81; PULSE 99; RESP 16; TEMP 36.3; O2SAT 99
== END 2022-12-26 23:59 | disposition home or self-care (01) ==
LOC: CCIC 11:00
PROVIDERS: Clinical Nurse Specialist; PCP Family Medicine; Referring Provider Family Medicine; Visit Provider Internal Medicine Hematology & Oncology
DX: C61 Malignant neoplasm of prostate (principal); C79.51 Secondary malignant neoplasm of bone; K92.2 Gastrointestinal hemorrhage, unspecified; K62.5 Hemorrhage of anus and rectum
CPT/HCPCS: 36415; 36430; 80053; 84153; 85018; 85025; 86850; 86870; 86880; 86900; 86901; 86904; 86922; 93971; 96372; 96374; 96401; 99211; 99212; 99214; 99215; 99443; J0897; J1940; J7050; J9217; P9016

== ENCOUNTER 2023-05-24 10:00 | Outpatient (RCR) | payer MEDICARE, OTHER, SELFPAY ==
[2022-12-27 08:35] LABS: Eosinophils Absolute Auto 0.19 K/uL (0.00-0.50); Eosinophils Percent Auto 3.3 % (0.0-7.0); Hematocrit 26.3 % (37.0-53.0); Hemoglobin* 8.1 gm/dL (13.5-17.5); Lymphocytes Percent Auto 8.3 % (20-44); Mean Corpuscular HGB Conc 31 gm/dL (32-36); Mean Corpuscular Hemoglobin 27 pg (26-34); Mean Corpuscular Volume 87 fL (80-100); Monocytes Percent Auto 8.3 % (0.0-11.0); Neutrophils Percent Auto 80.1 % (42.0-72.0); Platelet Count* 201 K/uL (140-440); RDW Coefficient of Variation % 16.6 % (11.5-15.5); Red Blood Count 3.02 m/uL (4.30-5.90)
[2022-12-27 08:44] LABS: Slide Review Reflex Yes
[2022-12-27 08:46] LABS: Slide Review Acceptable Review (Acceptable)
[2022-12-27 08:55] VITALS: BP 112/57; PULSE 63; RESP 18; TEMP 36.3; O2SAT 97
[2022-12-27 09:38] LABS: PSA Diagnostic* < 0.06 ng/mL (0.10-4.00)
[2022-12-27 10:22] VITALS: BP 109/56; PULSE 64; RESP 16; TEMP 36.2; O2SAT 99
[2022-12-27] MEDS: LEUPROLIDE ACETATE 22.5 MG (SQ) SYRINGE SUBCUT (10:30)
[2022-12-27] MEDS: DENOSUMAB 120 MG inj SUBCUT (10:30)
[2022-12-27 10:39] VITALS: BP 120/54; PULSE 63; RESP 18; TEMP 36.3; O2SAT 100
[2022-12-27 11:24] VITALS: BP 114/59; PULSE 62; RESP 16; TEMP 36.6; O2SAT 95
[2022-12-27 12:59] VITALS: BP 121/64; PULSE 62; RESP 18; TEMP 36.2; O2SAT 95
[2023-01-06 14:53] LABS: Hemoglobin* 7.8 gm/dL (13.5-17.5)
[2023-01-07 08:43] VITALS: BP 127/62; PULSE 74; RESP 16; TEMP 36.2; O2SAT 98
[2023-01-07 08:59] VITALS: BP 127/62; PULSE 74; RESP 18; TEMP 36.6; O2SAT 98
[2023-01-07 09:15] VITALS: BP 122/64; PULSE 70; RESP 18; TEMP 36.3; O2SAT 98
[2023-01-07 09:16] VITALS: BP 132/62; PULSE 69; RESP 16; TEMP 36.8; O2SAT 98
[2023-01-07 10:58] VITALS: BP 135/67; PULSE 66; RESP 18; TEMP 36.3; O2SAT 100
[2023-01-07 11:31] VITALS: BP 138/70; PULSE 69; RESP 18; TEMP 36.4; O2SAT 99
[2023-01-13 11:00] LABS: Hemoglobin* 7.6 gm/dL (13.5-17.5)
[2023-01-14 09:34] VITALS: BP 150/72; PULSE 59; RESP 16; TEMP 36.3; O2SAT 97
[2023-01-14 10:12] VITALS: BP 150/72; PULSE 59; RESP 16; TEMP 36.3; O2SAT 97
[2023-01-14 10:32] VITALS: BP 117/61; PULSE 67; RESP 16; TEMP 36.5; O2SAT 98
[2023-01-14 11:17] VITALS: BP 132/61; PULSE 69; RESP 16; TEMP 36; O2SAT 97
--- NOTE | 2023-01-14 11:26 | PC.NURSE ---
Addendum entered by Hayde Gee RN 01/14/23 14:14: Received a return call from Dr. Mccollum's nurse stating that MD will fax over orders for weekly Hgb and standing orders to transfuse 2 units PRBC if Hgb < 8.0. We also discussed that Kalen is due for a pre-op physical prior to his next procedure on 02/15/2023 and it was advised that he call jacquelin as MD is getting booked up. This magnetic tape typewriter operator called Kalen with the update re: standing orders and instructed pt to call today to schedule the pre-op. Kalen verbalized understanding. Of note, pt will be present at [facility] on 01/17/2023 for a MD follow-up visit. We can schedule his next lab check at that time. Support offered. Original Note: Pt present at [facility] today for blood transfusion. When Kalen arrived for labs yesterday, RN discussed with Libia Doherty APRN and it was requested that Dr. Mccollum be brought back into the loop about Kalen's care. RN called [facility] and updated them about Kalen's frequent transfusion needs, his recent procedure with [facility], and the next scheduled procedure on 02/15/2023. RN took a note to review with and will call back.
[2023-01-14 12:37] VITALS: BP 150/66; PULSE 80; RESP 22; TEMP 36.4; O2SAT 91
[2023-01-14 12:58] VITALS: BP 136/64; PULSE 64; RESP 16; TEMP 36.4; O2SAT 100
[2023-01-17 10:20] LABS: Hemoglobin* 8.2 gm/dL (13.5-17.5)
[2023-01-20 10:28] LABS: Hemoglobin* 7.8 gm/dL (13.5-17.5)
--- NOTE | 2023-01-20 10:35 | ONC.NURNOTE ---
Critical Hemoglobin of 7.8. Standing order for 2 units of PRBC if hemaglobin <8. This was ordered for 01/21 in the AM.
[2023-01-21] VITALS (10 sets, daily range): BP systolic 139–158; BP diastolic 63–87; PULSE 68–82; RESP 16; TEMP 36.2–36.8; O2SAT 97–99
[2023-01-24 10:52] LABS: Basophils Absolute Auto 0.01 K/uL (0.00-0.30); Basophils Percent Auto 0.1 % (0.0-3.0); Eosinophils Absolute Auto 0.23 K/uL (0.00-0.50); Eosinophils Percent Auto 3.4 % (0.0-7.0); Hematocrit 33.4 % (37.0-53.0); Hemoglobin* 10.1 gm/dL (13.5-17.5); Immature Granulocytes Abs Auto 0.01 K/uL (0.00-0.30); Immature Granulocytes Pct Auto 0.1 %; Lymphocytes Percent Auto 7.3 % (20-44); Mean Corpuscular HGB Conc 30 gm/dL (32-36); Mean Corpuscular Hemoglobin 26 pg (26-34); Mean Corpuscular Volume 87 fL (80-100); Monocytes Percent Auto 7.6 % (0.0-11.0); Neutrophils Percent Auto 81.5 % (42.0-72.0); Platelet Count* 264 K/uL (140-440); RDW Coefficient of Variation % 15.7 % (11.5-15.5); Red Blood Count 3.85 m/uL (4.30-5.90); White Blood Count* 6.85 K/uL (4.50-11.00)
[2023-01-24 10:55] LABS: Slide Review Reflex No
[2023-01-24 11:15] LABS: Albumin* 3.6 g/dL (3.3-5.0); Chloride* 110 mmol/L (96-114)
[2023-01-24 11:16] LABS: Potassium* 4.5 mmol/L (3.6-5.1); Sodium* 139 mmol/L (135-149)
[2023-01-24 11:18] LABS: Alkaline Phosphatase* 55 U/L (40-150); Anion Gap 8 mEq/L (7-15); Aspartate Amino Transferase* 22 U/L (12-35); Bilirubin Total* 0.6 mg/dL (0.1-1.5); Blood Urea Nitrogen* 16 mg/dL (7-30); Carbon Dioxide* 21 mmol/L (20-32); Creatinine* 1.4 mg/dL (0.5-1.5); Estimated Glomerular Filt Rate 50 ml/min; Total Protein* 6.4 g/dL (6.0-8.3)
[2023-01-24 11:19] LABS: Alanine Aminotransferase* 14 U/L (4-50); Calcium* 8.6 mg/dL (8.4-10.6); Glucose* 110 mg/dL (60-115)
--- NOTE | 2023-01-24 12:38 | ONC.NURNOTE ---
[facility] re enrollment instructions received Dr Tan submitted eRx to [facility]- this will trigger enrollment for 2023 Patient informed today
--- NOTE | 2023-01-25 10:10 | ONC.NURNOTE ---
[facility] called and needs 3 refills of Xtandi to complete the RX for the year #120 tabs with 3 refills 40 mg tabs X [address] Tan's signed electronic RX verbal order provided to pharmacist
[2023-01-31 09:21] LABS: Basophils Absolute Auto 0.01 K/uL (0.00-0.30); Basophils Percent Auto 0.2 % (0.0-3.0); Eosinophils Absolute Auto 0.25 K/uL (0.00-0.50); Eosinophils Percent Auto 4.2 % (0.0-7.0); Hematocrit 28.2 % (37.0-53.0); Hemoglobin* 8.3 gm/dL (13.5-17.5); Immature Granulocytes Abs Auto 0.02 K/uL (0.00-0.30); Immature Granulocytes Pct Auto 0.3 %; Lymphocytes Percent Auto 9.6 % (20-44); Mean Corpuscular HGB Conc 29 gm/dL (32-36); Mean Corpuscular Hemoglobin 26 pg (26-34); Mean Corpuscular Volume 88 fL (80-100); Monocytes Percent Auto 7.1 % (0.0-11.0); Neutrophils Percent Auto 78.6 % (42.0-72.0); Platelet Count* 273 K/uL (140-440); RDW Coefficient of Variation % 15.7 % (11.5-15.5); Red Blood Count 3.22 m/uL (4.30-5.90); White Blood Count* 5.92 K/uL (4.50-11.00)
[2023-01-31 09:24] LABS: Slide Review Reflex No
[2023-02-03 09:21] LABS: Hemoglobin* 7.4 gm/dL (13.5-17.5)
[2023-02-04] VITALS (11 sets, daily range): BP systolic 105–166; BP diastolic 59–95; PULSE 64–69; RESP 16; TEMP 36.1–36.8; O2SAT 96–100
[2023-02-04] MEDS: FUROSEMIDE 10 MG/ML inj 20 MG IVP (15:16)
[2023-02-14] VITALS (8 sets, daily range): BP systolic 140–163; BP diastolic 66–82; PULSE 64–96; RESP 20–24; TEMP 36.4–36.6; O2SAT 93–100
[2023-02-14 09:34] LABS: Basophils Absolute Auto 0.01 K/uL (0.00-0.30); Basophils Percent Auto 0.2 % (0.0-3.0); Eosinophils Absolute Auto 0.27 K/uL (0.00-0.50); Eosinophils Percent Auto 4.8 % (0.0-7.0); Hematocrit 22.9 % (37.0-53.0); Immature Granulocytes Abs Auto 0.02 K/uL (0.00-0.30); Immature Granulocytes Pct Auto 0.4 %; Lymphocytes Percent Auto 8.1 % (20-44); Mean Corpuscular HGB Conc 30 gm/dL (32-36); Mean Corpuscular Hemoglobin 26 pg (26-34); Mean Corpuscular Volume 87 fL (80-100); Monocytes Percent Auto 7.9 % (0.0-11.0); Neutrophils Percent Auto 78.6 % (42.0-72.0); Platelet Count* 272 K/uL (140-440); RDW Coefficient of Variation % 15.6 % (11.5-15.5); Red Blood Count 2.64 m/uL (4.30-5.90); White Blood Count* 5.57 K/uL (4.50-11.00)
[2023-02-14 09:46] LABS: Hemoglobin* 6.9 gm/dL (13.5-17.5)
[2023-02-14 09:47] LABS: Slide Review Reflex No
[2023-02-14] MEDS: FUROSEMIDE 10 MG/ML inj 20 MG IVP (16:22)
--- NOTE | 2023-02-14 18:16 | PC.NURSE ---
End of infusion: Patient tolerated infusion. no reaction noted. VSS. 2 units of O positive PRBC's administered and IV lasix given after second bag of PRBC's.
[2023-02-22 11:27] LABS: Basophils Absolute Auto 0.01 K/uL (0.00-0.30); Basophils Percent Auto 0.2 % (0.0-3.0); Eosinophils Absolute Auto 0.28 K/uL (0.00-0.50); Hematocrit 28.4 % (37.0-53.0); Hemoglobin* 8.8 gm/dL (13.5-17.5); Immature Granulocytes Abs Auto 0.01 K/uL (0.00-0.30); Immature Granulocytes Pct Auto 0.2 %; Lymphocytes Percent Auto 7.4 % (20-44); Mean Corpuscular HGB Conc 31 gm/dL (32-36); Mean Corpuscular Hemoglobin 27 pg (26-34); Mean Corpuscular Volume 87 fL (80-100); Monocytes Percent Auto 6.9 % (0.0-11.0); Neutrophils Percent Auto 80.3 % (42.0-72.0); Platelet Count* 256 K/uL (140-440); RDW Coefficient of Variation % 15.7 % (11.5-15.5); Red Blood Count 3.26 m/uL (4.30-5.90); White Blood Count* 5.64 K/uL (4.50-11.00)
[2023-02-22 11:33] LABS: Slide Review Reflex No
[2023-02-22 11:40] LABS: Albumin* 3.4 g/dL (3.3-5.0); Chloride* 109 mmol/L (96-114); Potassium* 3.9 mmol/L (3.6-5.1); Sodium* 141 mmol/L (135-149)
[2023-02-22 11:42] LABS: Anion Gap 7 mEq/L (7-15); Aspartate Amino Transferase* 27 U/L (12-35); Bilirubin Total* 0.5 mg/dL (0.1-1.5); Carbon Dioxide* 25 mmol/L (20-32); Creatinine* 1.2 mg/dL (0.5-1.5); Estimated Glomerular Filt Rate 60 ml/min; Total Protein* 6.2 g/dL (6.0-8.3)
[2023-02-22 11:43] LABS: Alanine Aminotransferase* 13 U/L (4-50); Alkaline Phosphatase* 51 U/L (40-150); Blood Urea Nitrogen* 19 mg/dL (7-30); Calcium* 8.5 mg/dL (8.4-10.6); Glucose* 101 mg/dL (60-115)
[2023-02-22 12:14] LABS: PSA Diagnostic* < 0.06 ng/mL (0.10-4.00)
[2023-03-01 11:31] LABS: Eosinophils Percent Auto 6.3 % (0.0-7.0); Hematocrit 30.5 % (37.0-53.0); Immature Granulocytes Abs Auto 0.02 K/uL (0.00-0.30); Immature Granulocytes Pct Auto 0.4 %; Lymphocytes Percent Auto 7.5 % (20-44); Mean Corpuscular HGB Conc 30 gm/dL (32-36); Mean Corpuscular Hemoglobin 26 pg (26-34); Mean Corpuscular Volume 88 fL (80-100); Monocytes Percent Auto 7.1 % (0.0-11.0); Neutrophils Percent Auto 78.7 % (42.0-72.0); Platelet Count* 347 K/uL (140-440); RDW Coefficient of Variation % 15.5 % (11.5-15.5); Red Blood Count 3.48 m/uL (4.30-5.90)
[2023-03-01 11:36] LABS: Slide Review Reflex No
[2023-03-08 09:17] LABS: Eosinophils Absolute Auto 0.29 K/uL (0.00-0.50); Eosinophils Percent Auto 5.3 % (0.0-7.0); Hemoglobin* 8.9 gm/dL (13.5-17.5); Immature Granulocytes Abs Auto 0.01 K/uL (0.00-0.30); Immature Granulocytes Pct Auto 0.2 %; Lymphocytes Percent Auto 9.5 % (20-44); Mean Corpuscular HGB Conc 30 gm/dL (32-36); Mean Corpuscular Hemoglobin 26 pg (26-34); Mean Corpuscular Volume 87 fL (80-100); Monocytes Percent Auto 8.7 % (0.0-11.0); Neutrophils Percent Auto 76.3 % (42.0-72.0); Platelet Count* 297 K/uL (140-440); RDW Coefficient of Variation % 15.7 % (11.5-15.5); Red Blood Count 3.47 m/uL (4.30-5.90); White Blood Count* 5.49 K/uL (4.50-11.00)
[2023-03-08 09:24] LABS: Slide Review Reflex No
[2023-03-15 09:16] LABS: Eosinophils Absolute Auto 0.27 K/uL (0.00-0.50); Eosinophils Percent Auto 4.1 % (0.0-7.0); Hematocrit 28.7 % (37.0-53.0); Hemoglobin* 8.4 gm/dL (13.5-17.5); Immature Granulocytes Abs Auto 0.05 K/uL (0.00-0.30); Immature Granulocytes Pct Auto 0.8 %; Lymphocytes Percent Auto 7.9 % (20-44); Mean Corpuscular HGB Conc 29 gm/dL (32-36); Mean Corpuscular Hemoglobin 25 pg (26-34); Mean Corpuscular Volume 86 fL (80-100); Monocytes Percent Auto 8.6 % (0.0-11.0); Neutrophils Percent Auto 78.6 % (42.0-72.0); Platelet Count* 271 K/uL (140-440); RDW Coefficient of Variation % 16.2 % (11.5-15.5); Red Blood Count 3.33 m/uL (4.30-5.90); White Blood Count* 6.61 K/uL (4.50-11.00)
[2023-03-15 09:18] LABS: Slide Review Reflex No
--- NOTE | 2023-03-15 10:10 | ONC.NURNOTE ---
Hg noted and discussed with patient reports feeling tired, with some SOB with exertion however decision was to wait another week- due for all labs next week- Hg over parameters to transfuse patient familiar with symtoms of anemia and will call on if he is feeling more symotomatic appt confirmed for lab next week
--- NOTE | 2023-03-15 14:39 | URNOTE ---
Request received for authorization for Denosumab (J0897) and Leuprolide Acetate (Eligard) (J9217). Prior authorization is not required as services are based on medical necessity and follow Medicare guidelines.
[2023-03-17 10:27] LABS: Eosinophils Absolute Auto 0.31 K/uL (0.00-0.50); Eosinophils Percent Auto 4.9 % (0.0-7.0); Hematocrit 28.4 % (37.0-53.0); Hemoglobin* 8.5 gm/dL (13.5-17.5); Immature Granulocytes Abs Auto 0.03 K/uL (0.00-0.30); Immature Granulocytes Pct Auto 0.5 %; Lymphocytes Percent Auto 13.6 % (20-44); Mean Corpuscular HGB Conc 30 gm/dL (32-36); Mean Corpuscular Hemoglobin 25 pg (26-34); Mean Corpuscular Volume 85 fL (80-100); Monocytes Percent Auto 9.1 % (0.0-11.0); Neutrophils Absolute Auto 4.56 K/uL (1.7-7.0); Neutrophils Percent Auto 71.9 % (42.0-72.0); Platelet Count* 288 K/uL (140-440); Red Blood Count 3.34 m/uL (4.30-5.90); White Blood Count* 6.34 K/uL (4.50-11.00)
[2023-03-17 10:29] LABS: Slide Review Reflex No
[2023-03-17 10:38] VITALS: BP 143/70; PULSE 76; RESP 16; O2SAT 97
[2023-03-17 12:12] VITALS: BP 143/70; PULSE 77; RESP 16; TEMP 36.6; O2SAT 97
[2023-03-17 12:30] VITALS: BP 130/71; PULSE 76; RESP 16; TEMP 36.6; O2SAT 98
[2023-03-17 13:15] VITALS: BP 135/67; PULSE 69; RESP 18; TEMP 36.3; O2SAT 98
[2023-03-17 14:15] VITALS: BP 150/72; PULSE 75; RESP 16; TEMP 37.1; O2SAT 99
[2023-03-17 14:52] VITALS: BP 154/78; PULSE 74; RESP 16; TEMP 36.1; O2SAT 98
[2023-03-22 11:16] LABS: Eosinophils Absolute Auto 0.25 K/uL (0.00-0.50); Eosinophils Percent Auto 5.1 % (0.0-7.0); Hematocrit 30.8 % (37.0-53.0); Hemoglobin* 8.8 gm/dL (13.5-17.5); Mean Corpuscular HGB Conc 29 gm/dL (32-36); Mean Corpuscular Hemoglobin 25 pg (26-34); Mean Corpuscular Volume 88 fL (80-100); Monocytes Percent Auto 10.8 % (0.0-11.0); Neutrophils Percent Auto 73.1 % (42.0-72.0); Platelet Count* 266 K/uL (140-440); RDW Coefficient of Variation % 16.2 % (11.5-15.5); Red Blood Count 3.49 m/uL (4.30-5.90); White Blood Count* 4.92 K/uL (4.50-11.00)
[2023-03-22 11:17] LABS: Slide Review Reflex No
--- NOTE | 2023-03-22 14:59 | ONC.NURNOTE ---
Pt here for Hgb check. Hemoglobin 8.8. Pt states he still has significant fatigue. Standing orders for blood state transfuse if hemoglobin less than 8. Pt scheduled to come in for lab recheck on 03/24/23. Rush Seater discussed with Libia Doherty APRN, she recommends pt contact primary care and update them regarding significant fatigue. Pt verbalized understanding plan of care.
[2023-03-25 08:34] LABS: Eosinophils Absolute Auto 0.25 K/uL (0.00-0.50); Hematocrit 30.2 % (37.0-53.0); Hemoglobin* 8.9 gm/dL (13.5-17.5); Immature Granulocytes Abs Auto 0.01 K/uL (0.00-0.30); Immature Granulocytes Pct Auto 0.2 %; Lymphocytes Percent Auto 12.5 % (20-44); Mean Corpuscular HGB Conc 30 gm/dL (32-36); Mean Corpuscular Hemoglobin 25 pg (26-34); Mean Corpuscular Volume 86 fL (80-100); Monocytes Percent Auto 9.5 % (0.0-11.0); Neutrophils Percent Auto 72.8 % (42.0-72.0); Platelet Count* 293 K/uL (140-440); RDW Coefficient of Variation % 15.8 % (11.5-15.5); Red Blood Count 3.51 m/uL (4.30-5.90); White Blood Count* 4.96 K/uL (4.50-11.00)
[2023-03-25 08:35] LABS: Slide Review Reflex No
[2023-03-25 08:48] LABS: Albumin* 3.9 g/dL (3.3-5.0); Chloride* 109 mmol/L (96-114)
[2023-03-25 08:49] LABS: Sodium* 138 mmol/L (135-149)
[2023-03-25 08:51] LABS: Anion Gap 5 mEq/L (7-15); Aspartate Amino Transferase* 21 U/L (12-35); Bilirubin Total* 0.5 mg/dL (0.1-1.5); Carbon Dioxide* 24 mmol/L (20-32); Creatinine* 1.3 mg/dL (0.5-1.5); Estimated Glomerular Filt Rate 55 ml/min; Total Protein* 6.8 g/dL (6.0-8.3)
[2023-03-25 08:52] LABS: Alanine Aminotransferase* 14 U/L (4-50); Alkaline Phosphatase* 55 U/L (40-150); Blood Urea Nitrogen* 19 mg/dL (7-30); Calcium* 8.7 mg/dL (8.4-10.6); Glucose* 112 mg/dL (60-115)
[2023-03-30 08:59] VITALS: BP 121/72; PULSE 69; RESP 16; TEMP 36.4; O2SAT 99
[2023-03-30 08:59] LABS: Hemoglobin* 8.3 gm/dL (13.5-17.5)
[2023-03-30] MEDS: DENOSUMAB 120 MG inj SUBCUT (09:48)
[2023-03-30] MEDS: LEUPROLIDE ACETATE 22.5 MG (SQ) SYRINGE SUBCUT (09:49)
--- NOTE | 2023-03-30 11:16 | ONC.NURNOTE ---
Pt here for Eligard and XGeva injections; feeling well. Hgb 8.3. Pt reports he feels asymptomatic; denies SOB, his color is normal. He reports he had a f/u colonoscopy with [facility] yesterday evaluating bleeding following recent cautery treatment. He feels his episodes of rectal bleeding are decreasing in severity and frequency and is surprised at the low Hgb as he is feeling well. Pt voices concern his Hgb may drop low over the holiday weekend, as he has extensive plans with family. Reviewed with Libia Lawrence APRN; recheck Hgb Sunday 04/01. Parameters in place for transfusion.
[2023-04-01 08:27] LABS: Hemoglobin* 8.3 gm/dL (13.5-17.5)
[2023-04-01 10:02] LABS: Iron* 26 ug/dL (49-181)
[2023-04-01 10:12] LABS: Percent Iron Saturation 5 % (20-50); Total Iron Binding Capacity 496 ug/dL (261-462)
[2023-04-01 11:13] VITALS: BP 143/77; PULSE 59; RESP 16; TEMP 36.2; O2SAT 99
[2023-04-01 11:33] VITALS: BP 136/79; PULSE 59; RESP 16; TEMP 36.3; O2SAT 99
[2023-04-01 12:18] VITALS: BP 157/83; PULSE 60; RESP 16; TEMP 36.2; O2SAT 99
[2023-04-01 13:18] VITALS: BP 154/82; PULSE 62; RESP 16; TEMP 35.8; O2SAT 100
[2023-04-01 13:49] VITALS: BP 146/81; PULSE 65; RESP 16; TEMP 36.2; O2SAT 100
[2023-04-14 13:24] LABS: Hemoglobin* 9.6 gm/dL (13.5-17.5)
[2023-04-25 10:34] LABS: Anion Gap 11 mEq/L (7-15); Carbon Dioxide* 24 mmol/L (20-32); Chloride* 106 mmol/L (96-114); Glucose* 84 mg/dL (60-115); Potassium* 4.8 mmol/L (3.6-5.1); Sodium* 141 mmol/L (135-149)
[2023-04-25 10:44] LABS: Basophils Absolute Auto 0.01 K/uL (0.00-0.30); Basophils Percent Auto 0.2 % (0.0-3.0); Eosinophils Absolute Auto 0.22 K/uL (0.00-0.50); Eosinophils Percent Auto 3.6 % (0.0-7.0); Hematocrit 30.6 % (37.0-53.0); Hemoglobin* 9.1 gm/dL (13.5-17.5); Immature Granulocytes Abs Auto 0.01 K/uL (0.00-0.30); Immature Granulocytes Pct Auto 0.2 %; Lymphocytes Percent Auto 9.1 % (20-44); Mean Corpuscular HGB Conc 30 gm/dL (32-36); Mean Corpuscular Hemoglobin 26 pg (26-34); Mean Corpuscular Volume 88 fL (80-100); Monocytes Percent Auto 9.3 % (0.0-11.0); Neutrophils Percent Auto 77.6 % (42.0-72.0); Platelet Count* 246 K/uL (140-440); RDW Coefficient of Variation % 19.7 % (11.5-15.5); Red Blood Count 3.49 m/uL (4.30-5.90); White Blood Count* 6.14 K/uL (4.50-11.00)
[2023-04-25 10:49] LABS: Slide Review Reflex No
[2023-04-25 11:37] LABS: Albumin* 3.8 g/dL (3.3-5.0)
[2023-04-25 11:40] LABS: Aspartate Amino Transferase* 29 U/L (12-35); Bilirubin Total* 0.5 mg/dL (0.1-1.5); Blood Urea Nitrogen* 20 mg/dL (7-30); Creatinine* 1.4 mg/dL (0.5-1.5); Estimated Glomerular Filt Rate 50 ml/min; Total Protein* 6.5 g/dL (6.0-8.3)
[2023-04-25 11:41] LABS: Alanine Aminotransferase* 14 U/L (4-50); Alkaline Phosphatase* 43 U/L (40-150); Calcium* 9.3 mg/dL (8.4-10.6)
[2023-04-25 12:01] LABS: PSA Diagnostic* < 0.06 ng/mL (0.10-4.00)
[2023-05-24 10:21] LABS: Eosinophils Percent Auto 3.5 % (0.0-7.0); Hematocrit 30.7 % (37.0-53.0); Immature Granulocytes Pct Auto 0.2 %; Lymphocytes Percent Auto 9.5 % (20-44); Mean Corpuscular HGB Conc 29 gm/dL (32-36); Mean Corpuscular Hemoglobin 28 pg (26-34); Mean Corpuscular Volume 95 fL (80-100); Monocytes Percent Auto 8.6 % (0.0-11.0); Neutrophils Percent Auto 78.2 % (42.0-72.0); Platelet Count* 229 K/uL (140-440); RDW Coefficient of Variation % 21.1 % (11.5-15.5); Red Blood Count 3.24 m/uL (4.30-5.90)
[2023-05-24 10:24] LABS: Slide Review Reflex No
[2023-05-24 10:33] LABS: Albumin* 3.9 g/dL (3.3-5.0); Chloride* 106 mmol/L (96-114)
[2023-05-24 10:34] LABS: Potassium* 4.9 mmol/L (3.6-5.1); Sodium* 138 mmol/L (135-149)
[2023-05-24 10:36] LABS: Alanine Aminotransferase* 14 U/L (4-50); Alkaline Phosphatase* 47 U/L (40-150); Anion Gap 9 mEq/L (7-15); Aspartate Amino Transferase* 23 U/L (12-35); Bilirubin Total* 0.5 mg/dL (0.1-1.5); Blood Urea Nitrogen* 18 mg/dL (7-30); Carbon Dioxide* 23 mmol/L (20-32); Creatinine* 1.4 mg/dL (0.5-1.5); Estimated Glomerular Filt Rate 50 ml/min; Total Protein* 6.4 g/dL (6.0-8.3)
[2023-05-24 10:37] LABS: Calcium* 9.4 mg/dL (8.4-10.6); Glucose* 123 mg/dL (60-115)
[2023-05-24 11:22] LABS: Iron* 157 ug/dL (49-181)
[2023-05-24 11:31] LABS: Percent Iron Saturation 39 % (20-50); Total Iron Binding Capacity 400 ug/dL (261-462)
== END 2023-06-25 23:59 | disposition home or self-care (01) ==
LOC: CCIC 10:00
PROVIDERS: Absent Provider Clinical Nurse Specialist; PCP Family Medicine; Referring Provider Family Medicine; Visit Provider Internal Medicine Hematology & Oncology
DX: C61 Malignant neoplasm of prostate (principal); C79.51 Secondary malignant neoplasm of bone; E61.1 Iron deficiency
CPT/HCPCS: 36415; 36430; 80053; 83540; 83550; 84153; 85018; 85025; 86850; 86900; 86901; 86922; 96372; 96401; 99211; 99212; 99214; G0463; J0897; J1940; J9217; P9016

== ENCOUNTER 2023-06-25 14:54 | Emergency (ER) | payer MEDICARE, OTHER, SELFPAY ==
[2023-06-25 15:33] VITALS: BP 97/55; PULSE 67; RESP 16; TEMP 36.4; O2SAT 99
--- NOTE | 2023-06-25 15:39 | ED_ITS ---
HPI - General Adult General Date Seen: 06/25/23 Chief complaint: Unspecified Complaint, Adult Stated complaint: wants hemoglobin checked Time Seen by Provider: 06/25/23 14:59 Source: patient Mode of arrival: ambulatory Limitations: no limitations History of Present Illness HPI narrative: Patient is an 83-year-old male with a history of prostate cancer this is a test size to his kidney. He is here to get his hemoglobin checked. Since his prostate cancer metastasized they were not able to surgery take it out but he did receive radiation 3 repeat for it few years ago. Starting over 6 months ago he started requiring weekly blood transfusions for a chronic GI bleed he developed after the radiation therapy. He has seen [facility] several times in that time frame and has had multiple ablations done to slow down the bleeding. He was told the bleeding was never stops permanently though. Last saw them 2 months ago the they did not want to do any further ablation is at this time. States he had episode today when he felt lightheaded and short of breath. The symptoms have since resolved but he gets seen symptoms whenever his hemoglobin is low. He would like to get that checked. He last had large clots in his stool about a week and half ago in his that continues small amount of bleeding since then. The large blood clots a rather infrequent he states but the chronic bleeding is now normal for him. No other symptoms noted at this time. Related Data Home Medications Medication Instructions Recorded Confirmed amlodipine 10 mg tablet 10 mg PO DAILY 10/20/21 04/25/23 calcium carbonate 600 mg-vitamin 1 cap PO BID 10/20/21 04/25/23 D3 10 mcg (400 unit) capsule metoprolol succinate 50 mg 50 mg PO DAILY 10/20/21 04/25/23 tablet,extended release 24 hr mirabegron 25 mg tablet,extended 50 mg PO Q24H 10/20/21 04/25/23 release 24 hr (Myrbetriq) nitroglycerin 0.4 mg sublingual 0.4 mg sublingual Q5-15M PRN 10/20/21 04/25/23 tablet tamsulosin 0.4 mg capsule 0.4 mg PO Q24H 10/20/21 04/25/23 clopidogrel 75 mg tablet (Plavix) 75 mg PO QDAY 11/24/22 04/25/23 coenzyme Q10 100 mg capsule 100 mg PO QDAY 11/24/22 04/25/23 rosuvastatin 40 mg tablet 40 mg PO QDAY 11/24/22 04/25/23 cholecalciferol (vitamin D3) 50 50 mcg PO DAILY 12/08/22 04/25/23 mcg (2,000 unit) tablet (Vitamin D3) Previous Rx's Medication Instructions Recorded enzalutamide 40 mg capsule (Xtandi) 120 mg (3 x 40 mg) PO QDAY #90 caps 01/24/23 iron,carbonyl 65 mg-vitamin C 125 1 tab PO QDAY #120 tabs 05/30/23 mg tablet,delayed release (Vitron-C) rivaroxaban 10 mg tablet (Xarelto) 10 mg PO QDAY #90 tabs 05/30/23 Allergies Allergy/AdvReac Type Severity Reaction Status Date / Time No Known Drug Allergies Allergy Verified 04/25/23 11:09 Review of Systems Status of ROS: Reports: 10 or more systems reviewed and unremarkable except as noted in History and below [facility] Medical History Health care directive on file ?Z78.9 - Other specified health status (ICD-10) Synovial cyst of knee ?M71.20 - Synovial cyst of popliteal space [Lambert], unspecified knee (ICD-10) Elevated international normalized ratio (INR) ?R79.1 - Abnormal coagulation profile (ICD-10) Effusion of right knee ?M25.461 - Effusion, right knee (ICD-10) Edema of right lower extremity ?R60.0 - Localized edema (ICD-10) Encounter for counseling regarding advance directives (08/19/05) ?Z71.89 - Other specified counseling (ICD-10) Adenocarcinoma of prostate (2019) ?C61 - Malignant neoplasm of prostate (ICD-10) 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 ?I82.423 - Acute embolism and thrombosis of iliac vein, bilateral (ICD-10) HTN (hypertension) ?I10 - Essential (primary) hypertension (ICD-10) CAD (coronary artery disease) ?I25.10 - Atherosclerotic heart disease of [place] coronary artery without angina pectoris (ICD-10) Surgical History Status post hip replacement ?Z96.649 - Presence of unspecified artificial hip joint (ICD-10) Status post cystoscopy with ureteral stent placement ?Z96.0 - Presence of urogenital implants (ICD-10) S/P radiation therapy > 12 wks ago ?Z92.3 - Personal history of irradiation (ICD-10) Social History Smoking Status: Never smoker Do you use any of these nicotine containing products: None Second hand tobacco smoke exposure: No How often do you have a drink containing alcohol: never How often do you have six or more drinks on one occasion: Less than monthly AUDIT-C Alcohol total score: 1 Non-prescribed substance use: denies use service: No Exam Const: Vital Signs, click to edit/add: Vital Signs - 24 hr 06/25/23 15:33 Temperature 97.6 F Pulse Rate [Pulse Oximeter] 67 Respiratory Rate 16 Blood Pressure [Ri ght Upper Arm] 97/55 L Pulse Oximetry 99 Oxygen Delivery Me thod Room Air Course Vital Signs Vital signs: Initial Vital Signs Temperature 97.6 F 06/25/23 15:33 Temperature Source Temporal Artery Scan 06/25/23 15:33 Pulse Rate 67 06/25/23 15:33 Respiratory Rate 16 06/25/23 15:33 Blood Pressure 97/55 L 06/25/23 15:33 Blood Pressure Mean 69 L 06/25/23 15:33 Blood Pressure Position Sitting 06/25/23 15:33 Pulse Oximetry 99 06/25/23 15:33 Oxygen Delivery Method Room Air 06/25/23 15:33 Vital Signs Temperature 97.6 F 06/25/23 15:33 Pulse Rate 67 06/25/23 15:33 Respiratory Rate 16 06/25/23 15:33 Blood Pressure 97/55 L 06/25/23 15:33 Pulse Oximetry 99 06/25/23 15:33 Oxygen Delivery Method Room Air 06/25/23 15:33 Temperature 97.6 F 06/25/23 15:33 Pulse Rate 67 06/25/23 15:33 Respiratory Rate 16 06/25/23 15:33 Blood Pressure 97/55 L 06/25/23 15:33 Pulse Oximetry 99 06/25/23 15:33 Oxygen Delivery Method Room Air 06/25/23 15:33 Medical Decision Making MDM Narrative Medical decision making narrative: Patient is an 83-year-old male presenting for concern of low hemoglobin. He does have slightly low blood pressure 97/55 but he is now asymptomatic. CBC, BMP, type and screen ordered. CBC shows hemoglobin 8.6. This seems relatively consistent with his previous hemoglobins. I do not believe he needs a transfusion at this time and I not overtly concerned about his chronic GI bleed since it is a well-known issue he is speaking to a specialist about. His BMP return with a slightly elevated creatinine and but it does not meet criteria for an PATRICE. He does have follow-up this week with his oncologist. I believe he is safe for discharge at this time. His blood pressure also improved to 110/58 and he continues to be asymptomatic. He is safe for discharge he agrees this plan. Lab Data Labs: Lab Results 06/25/23 Range/Units 15:41 WBC 6.39 (4.50-11.00) K/uL RBC 3.09 L (4.30-5.90) m/uL Hgb 8.6 L (13.5-17.5) gm/dL Hct 28.4 L (37.0-53.0) % MCV 92 (80-100) fL MCH 28 (26-34) pg MCHC 30 L (32-36) gm/dL RDW Coeff of Herson 16.7 H (11.5-15.5) % Plt Count 283 (140-440) K/uL Neut % (Auto) 76.4 H (42.0-72.0) % Lymph % (Auto) 10.0 L (20-44) % [place] % (Auto) 10.2 (0.0-11.0) % Eos % (Auto) 3.0 (0.0-7.0) % Baso % (Auto) 0.2 (0.0-3.0) % Neut # (Auto) 4.90 (1.7-7.0) K/uL Lymph # (Auto) 0.60 L (0.90-2.90) K/uL [place] # (Auto) 0.70 (0.00-0.90) K/UL Eos # (Auto) 0.19 (0.00-0.50) K/uL Baso # (Auto) 0.01 (0.00-0.30) K/uL Abs Immat Gran (auto) 0.01 (0.00-0.30) K/uL Imm/Tot Granulo (auto) 0.2 % Sodium 137 (135-149) mmol/L Potassium 4.5 (3.6-5.1) mmol/L Chloride 106 (96-114) mmol/L Carbon Dioxide 25 (20-32) mmol/L Anion Gap 6 L (7-15) mEq/L BUN 28 (7-30) mg/dL Creatinine 1.6 H (0.5-1.5) mg/dL Estimated GFR 42 ml/min Glucose 101 (60-115) mg/dL Calcium 10.5 (8.4-10.6) mg/dL Discharge Plan Discharge Clinical Impression: Anemia Qualifiers: Anemia type: unspecified type Qualified Code(s): D64.9 - Anemia, unspecified Patient Disposition: Home, Self-Care Condition: Stable Instructions: Anemia (ED) Additional Instructions: Make sure to keep your previously scheduled appointment on Tuesday with your oncologist. Return to emergency department for new or worsening symptoms Prescriptions: No Action clopidogrel [Plavix] 75 mg tablet 75 mg PO QDAY coenzyme Q10 100 mg capsule 100 mg PO QDAY rosuvastatin 40 mg tablet 40 mg PO QDAY Xtandi 40 mg capsule 120 mg PO QDAY Qty: 90 11RF metoprolol succinate 50 mg tablet extended release 24 hr 50 mg PO DAILY tamsulosin 0.4 mg capsule 0.4 mg PO Q24H amlodipine 10 mg tablet 10 mg PO DAILY Myrbetriq 25 mg tablet extended release 24 hr 50 mg PO Q24H calcium carbonate-vitamin D3 600 mg-10 mcg (400 unit) capsule 1 cap PO BID Patient Comments: with meals nitroglycerin 0.4 mg tablet, sublingual 0.4 mg sublingual Q5-15M PRN Rx Instructions: do not exceed 3 doses per episode cholecalciferol (vitamin D3) [Vitamin D3] 50 mcg (2,000 unit) tablet 50 mcg PO DAILY Xarelto 10 mg tablet 10 mg PO QDAY Qty: 90 2RF Hold Instructions: Doctor's Order Vitron-C 65 mg iron- 125 mg tablet,delayed release (DR/EC) 1 tab PO QDAY Qty: 120 3RF Follow Up/Referrals: Cesar Mccollum MD [Primary Care Provider] - Stand Alone Forms: [facility] Info Instructions
[2023-06-25 15:59] LABS: Basophils Absolute Auto 0.01 K/uL (0.00-0.30); Basophils Percent Auto 0.2 % (0.0-3.0); Eosinophils Absolute Auto 0.19 K/uL (0.00-0.50); Hematocrit 28.4 % (37.0-53.0); Hemoglobin* 8.6 gm/dL (13.5-17.5); Immature Granulocytes Abs Auto 0.01 K/uL (0.00-0.30); Immature Granulocytes Pct Auto 0.2 %; Mean Corpuscular HGB Conc 30 gm/dL (32-36); Mean Corpuscular Hemoglobin 28 pg (26-34); Mean Corpuscular Volume 92 fL (80-100); Monocytes Percent Auto 10.2 % (0.0-11.0); Neutrophils Percent Auto 76.4 % (42.0-72.0); Platelet Count* 283 K/uL (140-440); RDW Coefficient of Variation % 16.7 % (11.5-15.5); Red Blood Count 3.09 m/uL (4.30-5.90); Slide Review Reflex No; White Blood Count* 6.39 K/uL (4.50-11.00)
[2023-06-25 16:11] LABS: Chloride* 106 mmol/L (96-114); Sodium* 137 mmol/L (135-149)
[2023-06-25 16:12] LABS: Potassium* 4.5 mmol/L (3.6-5.1)
[2023-06-25 16:14] LABS: Creatinine* 1.6 mg/dL (0.5-1.5); Estimated Glomerular Filt Rate 42 ml/min
[2023-06-25 16:15] LABS: Anion Gap 6 mEq/L (7-15); Blood Urea Nitrogen* 28 mg/dL (7-30); Calcium* 10.5 mg/dL (8.4-10.6); Carbon Dioxide* 25 mmol/L (20-32); Glucose* 101 mg/dL (60-115)
== END 2023-06-25 16:45 | disposition home or self-care (01) ==
PROVIDERS: Emergency Provider Student in an Organized Health Care Education/Training Program; PCP Family Medicine
DX: D64.9 Anemia, unspecified (principal)
CPT/HCPCS: 36415; 80048; 80053; 85025; 86850; 86900; 86901; 99282; 99283

== ENCOUNTER 2023-08-13 02:45 | Emergency (ER) | payer MEDICARE, OTHER, SELFPAY ==
[2023-08-13] VITALS (64 sets, daily range): BP systolic 99–231; BP diastolic 51–165; PULSE 64–158; RESP 16–22; TEMP 36.2–37; O2SAT 90–100; BMI 28.7
[2023-08-13 04:02] LABS: Appearance Urine Turbid (Clear); Bilirubin Urine 1+ (Negative); Blood Urine 3+ (Negative); Glucose Urine Negative (Negative); Ketones Urine Trace (Negative); Leukocyte Esterase Urine Trace (Negative); Nitrite Urine Positive (Negative); Protein Urine 3+ (Negative)
--- NOTE | 2023-08-13 04:06 | ED.GENADULT ---
HPI - General Adult General Chief complaint: Urogenital Problems, Male Stated complaint: Blocked urinary tract Time Seen by Provider: 08/13/23 02:52 Source: patient Mode of arrival: ambulatory Limitations: no limitations History of Present Illness HPI narrative: 83-year-old male presents to the emergency department with difficulty urinating and hematuria for the past 4 days. He had his renal stent changed about a month ago and had been doing well after the initial bleeding, had been blood free for at least a couple of weeks. He reports that the bleeding started rather abruptly after a physician visit with his primary care provider, no instrumentation or trauma was created during that exam of course. He reports that he has had ongoing issues with rectal bleeding and has a history of significant radiation to the prostate. He reports that he has had about 20 blood transfusions over the past couple of years and is worried that he may be due for another 1. No fever, no new trauma or injury. No dysuria. He last urinated this afternoon and reports that he has felt like his bladder has been filling over the last few hours but cannot void when he tries to. He is on blood thinners for recurrent thrombus which cannot be stopped. This has been a complication due to the rectal bleeding as well. 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 This is been an ongoing goldstein since 2019. He does remain on anti androgenic therapy, has completed his course of radiation in is no longer using. Past medical history mostly notable for the extensive prostate cancer but with the clotting disorder and GI bleeding as well which is an ongoing workup and issue. His most notable medication is the Xarelto. He is also on Plavix, metoprolol, amlodipine, Mirabegron and Flomax. Remainder of his medications reviewed. ROS is notable for ongoing fatigue, ongoing rectal bleeding which has been stable and the new interval development of significant hematuria. Related Data Home Medications Medication Instructions Recorded Confirmed amlodipine 10 mg tablet 10 mg PO DAILY 10/20/21 06/28/23 calcium carbonate 600 mg-vitamin 1 cap PO BID 10/20/21 06/28/23 D3 10 mcg (400 unit) capsule metoprolol succinate 50 mg 50 mg PO DAILY 10/20/21 06/28/23 tablet,extended release 24 hr mirabegron 25 mg tablet,extended 50 mg PO Q24H 10/20/21 06/28/23 release 24 hr (Myrbetriq) nitroglycerin 0.4 mg sublingual 0.4 mg sublingual Q5-15M PRN 10/20/21 06/28/23 tablet tamsulosin 0.4 mg capsule 0.4 mg PO Q24H 10/20/21 06/28/23 clopidogrel 75 mg tablet (Plavix) 75 mg PO QDAY 11/24/22 06/28/23 coenzyme Q10 100 mg capsule 100 mg PO QDAY 11/24/22 06/28/23 rosuvastatin 40 mg tablet 40 mg PO QDAY 11/24/22 06/28/23 cholecalciferol (vitamin D3) 50 50 mcg PO DAILY 12/08/22 06/28/23 mcg (2,000 unit) tablet (Vitamin D3) Previous Rx's Medication Instructions Recorded enzalutamide 40 mg capsule (Xtandi) 120 mg (3 x 40 mg) PO QDAY #90 caps 01/24/23 iron,carbonyl 65 mg-vitamin C 125 1 tab PO QDAY #120 tabs 05/30/23 mg tablet,delayed release (Vitron-C) rivaroxaban 10 mg tablet (Xarelto) 10 mg PO QDAY #90 tabs 05/30/23 Allergies Allergy/AdvReac Type Severity Reaction Status Date / Time No Known Drug Allergies Allergy Verified 06/28/23 14:11 [facility] Medical History Health care directive on file ?Z78.9 - Other specified health status (ICD-10) Synovial cyst of knee ?M71.20 - Synovial cyst of popliteal space [Lambert], unspecified knee (ICD-10) Elevated international normalized ratio (INR) ?R79.1 - Abnormal coagulation profile (ICD-10) Effusion of right knee ?M25.461 - Effusion, right knee (ICD-10) Edema of right lower extremity ?R60.0 - Localized edema (ICD-10) Encounter for counseling regarding advance directives (08/19/05) ?Z71.89 - Other specified counseling (ICD-10) Adenocarcinoma of prostate (2020) ?C61 - Malignant neoplasm of prostate (ICD-10) 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 ?I82.423 - Acute embolism and thrombosis of iliac vein, bilateral (ICD-10) HTN (hypertension) ?I10 - Essential (primary) hypertension (ICD-10) CAD (coronary artery disease) ?I25.10 - Atherosclerotic heart disease of [place] coronary artery without angina pectoris (ICD-10) Surgical History Status post hip replacement ?Z96.649 - Presence of unspecified artificial hip joint (ICD-10) Status post cystoscopy with ureteral stent placement ?Z96.0 - Presence of urogenital implants (ICD-10) S/P radiation therapy > 12 wks ago ?Z92.3 - Personal history of irradiation (ICD-10) Social History Smoking Status: Never smoker Do you use any of these nicotine containing products: None Second hand tobacco smoke exposure: No How often do you have a drink containing alcohol: never How often do you have six or more drinks on one occasion: Less than monthly AUDIT-C Alcohol total score: 1 Non-prescribed substance use: denies use service: No Exam Const: Vital Signs, click to edit/add: Vital Signs - 24 hr 08/13/23 03:01 08/13/23 06:33 08/13/23 06:34 Temperature 97.2 F L Pulse Rate 87 84 Pulse Rate [Pulse Oximeter] 64 Respiratory Rate 20 Blood Pressure 150/81 H Blood Pressure [Ri ght Upper Arm] 165/77 H Pulse Oximetry 97 97 98 Oxygen Delivery Me thod Room Air Documenting provider has reviewed patient's vital signs: yes Common normals: no apparent distress General appearance: well kempt Other: Friendly and cooperative, moderate historian, but good for age. HENMT: Common normals: normocephalic Head and scalp: normocephalic Face and sinus: normal facial exam Mouth: oral and palatal mucosa normal Eye: Other: Conjunctivae are a little pale but sclera and pupils appear normal. Normal visual gaze and tracking Neck & C-Spine: Common normals: no lymphadenopathy Resp: Common normals: normal respiratory effort, no use of accessory muscles and clear to auscultation bilaterally Effort & inspection: able to speak in complete sentences Auscultation: clear to auscultation bilaterally Cardio: Common normals: regular rate, regular rhythm, S1 normal heart sound, S2 normal heart sound and no murmurs Rate: regular rate Rhythm: regular rhythm Heart sounds: S1 normal and S2 normal GI: Other: Abdomen seems a little distended. Not incarcerated umbilical hernia. I suspect this is mild ascites. I cannot discretely feel the edges of the organs well. Bowel sounds do sound normoactive with no point tenderness or guarding. : Other: Catheter is in place draining initially dark red blood, now just blood tinged urine. Extremity: Common normals: normal capillary refill and no pedal edema Neuro: Speech: speech normal Motor exam: no movement abnormalities noted Psych: Appearance: well kempt Attitude: engaged Insight: insight good Judgement: judgment good Skin: Common normals: no rashes or lesions noted General skin exam: no rashes or lesions noted Course Course ED Course: 83-year-old male with incredibly complicated urological history now presenting with urinary retention and gross hematuria. Bladder scan revealing about 175 mL, Tabares is placed, initially did not drain, after multiple attempts at irrigation, drainage begins and patient now has good relief of symptoms. There was about 200 mL of thick blood upon return. Bleeding now has seemed to have slowed about a 1/2 hour later. Bleeding could be from multiple sources and he does need to stay in his anticoagulant. He also is typically very anemic. I think in his case it is necessary to do additional blood work to determine his level of anemia, recheck his kidney function to ensure that there is no obstruction or complication from the recent stent change and also do a CT scan. I spoke with the radiologist and we agree that a CT urogram will give us the most information rather than just a standard noncontrast CT. I am awaiting these findings. Reevaluation(s) Time of Reevaluation #1: 05:28 Reevaluation #1: Initially had improvement with pain, now pain worsening again. Reviewed lab and imaging findings with patient. Will place call to Urology for further guidance. Will try to flush bladder again. awaiting call back 34 Time of Reevaluation #2: 05:52 Reevaluation #2: Soak with Dr. Roberts, recommends placement of 3 way catheter, hand irrigation and transfer to [facility]. Nursing updates me that attempts to flush the catheter did not relieve his pain. Will give 4 mg of oral Dilaudid while we try to get an IV line. Will keep patient NPO. We were informed that we are 1st on the transfer list. Counseled family on plan of care. Need for transfer to get hemorrhage to stop. We cannot really hold his anticoagulants. Will need subspecialty care potentially surgical or interventional radiology treatment. Time of Reevaluation #3: 08:16 Reevaluation #3: We are still awaiting call from hospitalist and transfer team. Patient's pain has improved after the oral Dilaudid. We were able to get IV access and a running his maintenance fluids. Handing over care to incoming day shift partner, Dr. Good. Vital Signs Vital signs: Initial Vital Signs Temperature 97.2 F L 08/13/23 03:01 Temperature Source Temporal Artery Scan 08/13/23 03:01 Pulse Rate 64 08/13/23 03:01 Pulse Rhythm Regular 08/13/23 03:01 Pulse Strength 3+ Normal 08/13/23 03:01 Respiratory Rate 20 08/13/23 03:01 Blood Pressure 165/77 H 08/13/23 03:01 Blood Pressure Mean 106 H 08/13/23 03:01 Blood Pressure Position Supine 08/13/23 03:01 Pulse Oximetry 97 08/13/23 03:01 Oxygen Delivery Method Room Air 08/13/23 03:01 Vital Signs Temperature 97.2 F L 08/13/23 03:01 Pulse Rate 64 08/13/23 03:01 Respiratory Rate 20 08/13/23 03:01 Blood Pressure 165/77 H 08/13/23 03:01 Pulse Oximetry 97 08/13/23 03:01 Oxygen Delivery Method Room Air 08/13/23 03:01 Temperature 97.2 F L 08/13/23 03:01 Pulse Rate 84 08/13/23 06:34 Respiratory Rate 20 08/13/23 03:01 Blood Pressure 150/81 H 08/13/23 06:33 Pulse Oximetry 98 08/13/23 06:34 Oxygen Delivery Method Room Air 08/13/23 03:01 Medications Administered Medications: Generic Name Dose Route Start Last Admin Trade Name Freq PRN Reason Stop Dose Admin Sodium Chloride 1,000 mls @ 250 mls/hr 08/13/23 05:59 08/13/23 07:37 0.9 % Sodium Chloride 1000 Ml IV 08/13/23 09:58 250 mls/hr .Q4H MICKEY Administration Discontinued Medications Generic Name Dose Route Start Last Admin Trade Name Jeramyq PRN Reason Stop Dose Admin Hydromorphone HCl 4 mg 08/13/23 05:50 08/13/23 06:01 Hydromorphone 2 Mg Tablet PO 08/13/23 05:51 4 mg ONCE ONE Administration Ondansetron HCl 4 mg 08/13/23 07:33 08/13/23 07:37 Ondansetron 2 Mg/Ml Inj IVP 08/13/23 07:34 4 mg ONCE ONE Administration Medical Decision Making Lab Data Lab results reviewed: Yes I reviewed the patient's lab results Lab results narrative: Hemoglobin is 8.9 which is pretty good for him. Mild leukocytosis but no other overwhelming symptoms of infection. CRP is negative. Creatinine is stable. Electrolytes look good to. Urinalysis is very bloody. It is difficult to interpret if there is infection on top of this. Labs: Lab Results 08/13/23 08/13/23 Range/Units 02:31 04:18 WBC 11.12 H (4.50-11.00) K/uL RBC 3.21 L (4.30-5.90) m/uL Hgb 8.9 L (13.5-17.5) gm/dL Hct 29.1 L (37.0-53.0) % MCV 91 (80-100) fL MCH 28 (26-34) pg MCHC 31 L (32-36) gm/dL RDW Coeff of Herson 17.3 H (11.5-15.5) % Plt Count 297 (140-440) K/uL Neut % (Auto) 86.5 H (42.0-72.0) % Lymph % (Auto) 5.4 L (20-44) % [place] % (Auto) 6.5 (0.0-11.0) % Eos % (Auto) 1.5 (0.0-7.0) % Baso % (Auto) 0.0 (0.0-3.0) % Neut # (Auto) 9.60 H (1.7-7.0) K/uL Lymph # (Auto) 0.60 L (0.90-2.90) K/uL [place] # (Auto) 0.70 (0.00-0.90) K/UL Eos # (Auto) 0.20 (0.00-0.50) K/uL Baso # (Auto) 0.00 (0.00-0.30) K/uL Abs Immat Gran (auto) 0.00 (0.00-0.30) K/uL Imm/Tot Granulo (auto) 0.1 % Sodium 137 (135-149) mmol/L Potassium 4.5 (3.6-5.1) mmol/L Chloride 106 (96-114) mmol/L Carbon Dioxide 24 (20-32) mmol/L Anion Gap 7 (7-15) mEq/L BUN 27 (7-30) mg/dL Creatinine 1.4 (0.5-1.5) mg/dL Estimated Creat Clear 40.56 Estimated GFR 50 ml/min Glucose 120 H (60-115) mg/dL Lactate 1.6 (0.5-1.9) mmol/L Calcium 9.3 (8.4-10.6) mg/dL C-Reactive Protein < 0.5 L (0.5-1.0) mg/dL Urine Color Red A (Yellow) Urine Appearance Turbid A (Clear) Urine pH 7.0 (5.0-8.5) Ur Specific [place] 1.020 (1.000-1.030) Urine Protein 3+ A (Negative) Urine Glucose (UA) Negative (Negative) Urine Ketones Trace A (Negative) Urine Blood 3+ A (Negative) Urine Nitrite Positive A (Negative) Urine Bilirubin 1+ A (Negative) Urine Urobilinogen 1.0 (0.2-1.0) Ur Leukocyte Esterase Trace A (Negative) Urine RBC >100 A (0-2) Urine WBC Not Reportable Ur Squamous Epith Cells Not Reportable Urine Bacteria Not Reportable Imaging Data CT scan - abdomen: Attestation: I have reviewed the pertinent imaging results. My impression: Mild stool retention, right-sided ureteral stent does seem appropriately placed. Heterogeneous material within the bladder that seems like hemorrhage. Radiologist's impression: Impression: Satisfactory position of right-sided ureteral stent with demonstration of moderate hyperdense material seen within the urinary bladder likely representing hemorrhage. No evidence of radiopaque calculus. Mild prominence of the left collecting system. Exam is somewhat limited due to beam hardening artifact from right hip arthroplasty. Posttreatment changes of the pelvis with mild thickening of the rectosigmoid colon and presacral space. 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 Discharge Plan Discharge Clinical Impression: Bladder hemorrhage Patient Disposition: [facility] Prescriptions: No Action clopidogrel [Plavix] 75 mg tablet 75 mg PO QDAY coenzyme Q10 100 mg capsule 100 mg PO QDAY rosuvastatin 40 mg tablet 40 mg PO QDAY Xtandi 40 mg capsule 120 mg PO QDAY Qty: 90 11RF metoprolol succinate 50 mg tablet extended release 24 hr 50 mg PO DAILY tamsulosin 0.4 mg capsule 0.4 mg PO Q24H amlodipine 10 mg tablet 10 mg PO DAILY Myrbetriq 25 mg tablet extended release 24 hr 50 mg PO Q24H calcium carbonate-vitamin D3 600 mg-10 mcg (400 unit) capsule 1 cap PO BID Patient Comments: with meals nitroglycerin 0.4 mg tablet, sublingual 0.4 mg sublingual Q5-15M PRN Rx Instructions: do not exceed 3 doses per episode cholecalciferol (vitamin D3) [Vitamin D3] 50 mcg (2,000 unit) tablet 50 mcg PO DAILY Xarelto 10 mg tablet 10 mg PO QDAY Qty: 90 2RF Hold Instructions: Doctor's Order Vitron-C 65 mg iron- 125 mg tablet,delayed release (DR/EC) 1 tab PO QDAY Qty: 120 3RF Stand Alone Forms: [facility] Info Instructions
[2023-08-13 04:12] LABS: Color Urine Red (Yellow)
--- OUTSIDE RECORDS SUMMARY | 2023-08-13 04:17 | XMS_ITS | Referral Summary ---
Author Name Unknown Organization [place] Address [address] [place] [id number] Care Team Providers Care Life Assurance Representative Name Role Phone Cesar Mccollum Primary Care Provider [phone] Allergies No known active allergies Medications Medication Sig Dispensed Refills Start Date End Date Status amLODIPine (NORVASC) 10 MG tablet Take 10 mg by mouth daily Active vitamin D3 (CHOLECALCIFEROL) 50 mcg (2000 units) tablet Take 1 tablet by mouth daily Active clopidogrel (PLAVIX) 75 MG tablet Take 75 mg by mouth daily Active co-enzyme Q-10 100 MG CAPS capsule Take 100 mg by mouth daily Active enzalutamide (XTANDI) 40 MG capsule Take 80 mg by mouth daily Active metoprolol succinate ER (TOPROL XL) 50 MG 24 hr tablet Take 50 mg by mouth daily Active mirabegron (MYRBETRIQ) 25 MG 24 hr tablet Take 25 mg by mouth daily Active nitroGLYcerin (NITROSTAT) 0.[address] 0.4 mg under the tongue every 5 minutes as needed for chest pain For chest pain place 1 tablet under the tongue every 5 minutes for 3 doses. If symptoms persist 5 minutes after 1st dose call 911. Active rosuvastatin (CRESTOR) 40 MG tablet Take 40 mg by mouth daily Active tamsulosin (FLOMAX) 0.4 MG capsule Take 0.4 mg by mouth daily Active phenazopyridine (PYRIDIUM) 100 MG tabletIndications:Hy dronephrosis with urinary obstruction due to ureteral calculus Take 1 tablet (100 mg) by mouth 3 times daily as needed for urinary tract discomfort 9 tablet 02/08/2022 Active Calcium Carb-Cholecalciferol (CALCIUM CARBONATE-VITAMIN D3 PO) 1 capsule 10/20/2021 Active Social History Tobacco Use Types Packs/Day Years Used Date Smoking Tobacco: Never Smokeless Tobacco: Never Tobacco Cessation:Counseling Given: Not Answered Alcohol Use Standard Drinks/Week Comments Not Currently 0 (1 standard drink = 0.6 oz pur e alcohol) Adolescent Education Answer Date Record ed Getting School Help Needed Not on file 01/01 Sex and Gender Information Value Date Recorded Sex Assigned at Not on file Gender Identity Not on file Sexual Orientation Not on file Last Filed Vital Signs Vital Sign Reading Time Taken Comments Blood Pressure 126/70 11/22/2022 9:40 AM CDT Pulse 61 11/22/2022 9:50 AM CDT Temperature 36.1 ??C (97 ??F) 02/08/2022 11:00 AM CDT Respiratory Rate 6 11/22/2022 9:50 AM CDT Oxygen Saturation 99% 11/22/2022 9:50 AM CDT Inhaled Oxygen Concentration - - Weight 90.7 kg (200 lb) 11/22/2022 8:30 AM CDT Height 179.7 cm (5' 10.75) 11/22/2022 8:30 AM C DT Body Mass Index 28.09 11/22/2022 8:30 AM CDT Plan of Treatment Not on file Medical Devices Implanted Type Area Community Health Worker Device Identifier Shelf Expiration Date Model / Serial / Lot Stent Ureteral Polaris [id number] - [id number] Implanted:Qty : 1 on 02/08/2022 by Nicola Ware MD at [facility] Stent Right: U[employer]ter [employer] [id number] 10/08/2024 [id number] Explanted Type Area Community Health Worker Device Identifier Shelf Expiration Date Model / Serial / Lot Stent Came Out Of The Right Ureter Explanted:Qty: 1 on 02/08/2022 by Nicola Ware MD at [facility] Right: Urethra Advance Directives For more information, please contact: [phone] Documents on File Type Date Recorded 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
--- OUTSIDE RECORDS SUMMARY | 2023-08-13 04:17 | XMS_ITS | Clinical Summary ---
Author Name Unknown Organization [facility] Address [place], [place] [address] Care Team Providers Care Military Analyst Name Role Phone Cesar Mccollum MD Primary Care Provider Nicola Mcgarry MD Unavailable [phone] Mireya Tan MD Unavailable [phone] Allergies No known active allergies Medications Medication Sig Dispensed Refills Start Date End Date Status nitroglycerin (NITROSTAT) 0.4 mg SL tabletIndications:Ch est pain on exertion Place 1 tablet under the tongue every 5 minutes if needed for Chest Pain (may take up to 3 tablets SL x 3 q 5 minutes). 1 Bottle 11/02/2019 Active enzalutamide (XTANDI) 40 mg capsuleIndications:P rostate cancer (HC) Take 120 mg by mouth once daily. 0 01/16/2021 Active cholecalciferol (Vitamin D-3) 2,000 unit capsule Take 1 Capsule (2,000 units) by mouth once daily. 0 01/18/2022 Active coenzyme q10 100 mg cap Take 1 Capsule (100 mg) by mouth once daily. 0 01/18/2022 Active mirabegron EXTENDED-release (Myrbetriq) 50 mg tablet Take 50 mg by mouth once daily. Active rivaroxaban (XARELTO) 10 mg tabletIndications:de ep vein thrombosis prevention Take 1 Tablet (10 mg) by mouth once daily with evening meal. 0 12/02/2022 Active calcium carbonate (Calcium 600) 600 mg calcium (1,500 mg) tablet Take 600 mg by mouth two times daily with meals. Active iron, carbonyl (Perfect Iron) 25 mg iron tab Take by mouth. 04/05/2023 Active rosuvastatin (CRESTOR) 40 mg tabletIndications:Hy perlipidemia, unspecified hyperlipidemia type TAKE 1 TABLET(40 MG) BY MOUTH AT BEDTIME 90 Tablet 3 05/09/2023 Active naproxen (NAPROSYN) 500 mg tabletIndications:Ot her hydronephrosis Take 0.5-1 Tablets (250-500 mg) by mouth every 12 hours if needed for Pain. 5 Tablet 07/18/2023 Active amLODIPine (NORVASC) 10 mg tabletIndications:Be nign essential HTN TAKE 1 TABLET(10 MG) BY MOUTH EVERY DAY 90 Tablet 2 07/21/2023 Active clopidogreL (PLAVIX) 75 mg tabletIndications:Co ronary artery disease, unspecified vessel or lesion type, unspecified whether angina present, unspecified whether [place] or transplanted heart Take 1 Tablet (75 mg) by mouth every morning. 90 Tablet 3 07/21/2023 Active metoprolol succinate (TOPROL XL) 50 mg sustained-release tabletIndications:Hy pertension, unspecified type Take 1 Tablet (50 mg) by mouth once daily. 90 Tablet 3 07/21/2023 Active tamsulosin (FLOMAX) 0.4 mg capsuleIndications:B PH without urinary obstruction Take 1 Capsule (0.4 mg) by mouth once daily after a meal. 90 Capsule 3 07/21/2023 Active tamsulosin (FLOMAX) 0.4 mg capsuleIndications:B PH without urinary obstruction TAKE 1 CAPSULE(0.4 MG) BY MOUTH EVERY DAY AFTER A MEAL 90 Capsule 2 02/04/2023 4 Discontinue d(Reorder (E-cancel not sent)) omeprazole (PRILOSEC) 20 mg Delayed-Release capsule Take 20 mg by mouth once daily before a meal. 4 Discontinue d(*Patient states no longer taking) clopidogreL (PLAVIX) 75 mg tabletIndications:Co ronary artery disease, unspecified vessel or lesion type, unspecified whether angina present, unspecified whether [place] or transplanted heart Take 1 Tablet (75 mg) by mouth every morning. 90 Tablet 3 02/23/2023 4 Discontinue d(Reorder (E-cancel not sent)) amLODIPine (NORVASC) 10 mg tabletIndications:Be nign essential HTN TAKE 1 TABLET(10 MG) BY MOUTH EVERY DAY 90 Tablet 2 03/14/2023 4 Discontinue d(Reorder (E-cancel not sent)) aspirin 81 mg cap Take by mouth. 4 Discontinue d(*Patient states no longer taking) metoprolol succinate (TOPROL XL) 50 mg sustained-release tabletIndications:Hy pertension, unspecified type TAKE 1 TABLET(50 MG) BY MOUTH EVERY DAY 90 Tablet 2 05/19/2023 4 Discontinue d(Reorder (E-cancel not sent)) aspirin (ECOTRIN) 81 mg enteric coated tablet Take 81 mg by mouth. 4 Discontinue d(*Patient states no longer taking) Active Problems Problem Noted Date Diagnosed Date Chronic blood loss anemia 03/08/2023 DVT of lower limb, acute (HC) 12/01/2022 12/02/19 Radiation proctitis 09/29/2020 Overview: Colonoscopy 09/2020 radiation proctitis, diverticuli, internal hemorrhoids, no follow up needed Prostate cancer metastatic to bone 04/30/2020 Hydronephrosis of right kidney, s/p Nephrostomy 03/01/2020 02/29/2020 Overview: due to bladder mass, nephrostomy tube placed 03/01/2020 Acute deep vein thrombosis ( DVT) of iliac vein (HC) 02/2020. 02/29/2020 Overview: right iliac adjacent to bladder mass Abnormal stress test 09/15/2016 Overview: -Stress echocardiogram 09/13/2016 Mid and apical anterior wall, mid and apical anterior septum, and mid and apical inferior septum hypokinesis EF 65-70% Anticoagulation monitoring, special range 2014 S/P total hip arthroplasty 08/09/2014 Sensorineural hearing loss, bilateral 07/17/2010 Adenomatous polyp of colon Overview: Colonoscopy 09/2010 polyp repeat in 5 years Hyperlipidemia DJD (degenerative joint disease) of hip Overview: right Coronary artery disease Overview: stent placements 2016 Essential hypertension Prediabetes Resolved Problems Problem Noted Date Diagnosed Date Resolved Date Anemia due to acute blood loss 09/13/2022 03/08/2023 Prostate cancer 03/01/2020 11/20/2020 Overview: 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 KJN=196.87 Bladder mass 02/29/2020 04/30/2020 Hematuria 02/29/2020 03/05/2020 Acute deep vein thrombosis (DVT) 02/29/2020 11/20/2020 S/P coronary angioplasty 11/03/2016 Chest pain 09/15/2016 03/05/2020 Elevated prostate specific antigen (PSA) 10/06/2010 03/05/2020 Hip arthritis 10/06/2010 03/05/2020 Colon polyp 07/15/2010 PATRICE (acute kidney injury) Obstructive uropathy 020 Encounters Date Type Department Care Team Description 08/04/2023 11:30 AM CDT Office Visit [facility] [address] [place] [address] Sandip Garcia, [facility] 08/04/2023 Travel 08/02/2023 2:30 PM CDT Orders Only [facility] [address] [facility] [address] [facility], [place] [facility] 08/02/2023 Travel 08/02/2023 Orders Only [facility] [address] [place] [address] Cesar Mccollum MD <No scans attached> 07/21/2023 8:55 AM CDT Office Visit [facility] [address] [place] [address] Cesar Mccollum MD Medicare ANNUAL (subsequent) Visit (83 year old); Post Procedure (Uteretal stent exchange) 07/21/2023 Travel 07/18/2023 10:00 AM CDT Anesthesia Event [facility] [address] [place] [address] Leonardo Frankel MD Purdy Fred Krueger, TIMBER SETTER 07/18/2023 9:45 AM CDT - 07/18/2023 10:54 AM CDT Surgery [facility] [address] [place] [address] Nicola Mcgarry MD CYSTOSCOPY EXCHANGE, RIGHT URETERAL STENT 07/18/2023 7:41 AM CDT - 07/18/2023 3:26 PM CDT Hospital Encounter [facility] [address] [place] [address] Nicola Mcgarry MD Other hydronephrosis (Primary Dx) Discharge Disposition: Home Self Care 07/18/2023 Travel 07/15/2023 8:20 AM CDT Preop Visit [facility] [address] [place] [address] Shannan Bain, Pre-Op Exam (/BLADDER SURGERY [facility] MCGARRY 07/18/23) 07/15/2023 Travel 07/11/2023 Orders Only [facility] Scanner 1 scan: (1-Ord) [facility] CLINICAL LABORATORY REPORT, 07/11/2023 07/06/2023 Telephone [facility] [address] [place] [address] Cesar Mccollum MD Follow Up 07/05/2023 4:00 PM CDT Orders Only [facility] [address] [place] [address] Lab, [place] [facility] 07/05/2023 Travel 07/05/2023 Orders Only [facility] [address] [place] [address] Cesar Mccollum MD <No scans attached> 07/01/2023 8:30 AM CDT Ancillary Procedure [facility] [address] [place] [facility] [place] [address] 07/01/2023 Travel 06/25/2023 Orders Only [facility] Scanner 1 scan: (1-Ord) [place] [facility], 06/25/2023 06/23/2023 Transcribe Orders [facility] [address] [place] [address] Nicola Mcgarry MD 05/19/2023 Refill [facility] [address] [place] [address] Cesar Mccollum MD Refill Request (Metoprolol Succinate) from Last 3 Months Immunizations Name Administration Dates Next Due COVID-19 Vaccine Spikevax (M oderna 50mcg/0.5mL) 12YO+ 9852-3201 Formula PF 07/21/2023,03/08/2023 COVID-19 vaccine (Pfizer-Bio NTech 30mcg/0.3mL) 12YO+ BIVALENT PF, MDV 09/13/2022,01/28/2022 COVID-19 vaccine (Pfizer-Bio NTech 30mcg/0.3mL) 12YO+ DAYRON-SUCROSE PF, MDV 08/26/2021 COVID-19 vaccine (Pfizer-Bio NTech 30mcg/0.3mL) PF, MDV 01/13/2021,06/17/2020,2020 Influenza, Inactivated AIIV4 (Age 65+ Years) Preserv Free 03/08/2023,01/28/2022 Pneumococcal Conj 20-valent (Prevnar 20) 024 Td (Age >=7 Years) 03/26/2003 Tdap 09/07/2016 [...] Never Smokeless Tobacco: Never Tobacco Cessation:Counseling Given: No Alcohol Use Standard Drinks/Week Comments Not Currently 0 (1 standard drink = 0.6 oz pur e alcohol) PHQ-2 Answer Date Recorded PHQ-2 TOTAL SCORE 0 07/21/2023 Social Connections Answer Date Recorded Frequency of Communication with Friends and Fami ly 0 02/16/2022 Financial Resource Strain Answer Date R ecorded Difficulty of Paying Living Expenses 3 02/16/2022 Difficulty of Paying Living Expenses Not on file 02/16/2022 Food Insecurity Answer Date Recorded Worried About Running Out of Food in the Last Ye ar 1 02/16/2022 Transportation Needs Answer Date Record ed Lack of Transportation (Medical) 1 02/16/2022 Housing Stability Answer Date Recorded Unable to Pay for Housing in the Last Year 1 02/16/2022 Sex and Gender Information Value Date Recorded Sex Assigned at Not on file Gender Identity Not on file Sexual Orientation Not on file Obstetrics History Last Filed Vital Signs Vital Sign Reading Time Taken Comments Blood Pressure 138/68 07/21/2023 9:29 AM CDT Pulse 68 07/21/2023 9:05 AM CDT Temperature 36 ??C (96.8 ??F) 07/18/2023 12:15 PM CDT Respiratory Rate 16 07/18/2023 12:15 PM CDT Oxygen Saturation 95% 07/21/2023 9:05 AM CDT Inhaled Oxygen Concentration - - Weight 94.3 kg (208 lb) 07/21/2023 9:05 AM CDT Height 177.1 cm (5' 9.72) 07/21/2023 9:05 AM CD T Body Mass Index 30.08 07/21/2023 9:05 AM CDT Plan of Treatment Upcoming Encounters Date Type Department Care Team (Late st Contact Info) Description 10/04/2023 1:00 PM CDT Office Visit [facility] [address] [place] [address] Regan Miller MD [address] [place] [address] Health Maintenance Due Date Last Done Comments Zoster (shingles) series for age 50+ (1 of 2) 1959 COVID-19 vaccine series (9 - 2023-24 season) 2023 07/21/2023, 03/08/2023, 09/13/2022, Additional history exists Influenza for age 65+ 12/11/2023 03/08/2023, 022 BMI (ht and wt on same day) for age 18+ 07/20/2024 07/21/2023, 07/15/2023, 03/08/2023, Additional history exists Depression screening for age 12+ 07/20/2024 07/21/2023, 01/28/2022, 01/28/2022, Additional history exists Medicare Wellness for age 65+ 07/21/2024, 01/28/2022, 11/20/2020 Tetanus booster 09/07/2026 09/07/2016, 03/26/2003 Tdap Completed 09/07/2016 Pneumococcal series for age 65+ Completed Medical Devices Implanted Type Area Steam Boiler Fireman Device Identifier Shelf Expiration Date Model / Serial / Lot Stent Uret [id number] Contour - [id number] Implanted:Qty: 1 on 07/18/2023 by Nicola Mcgarry MD at [facility] Right: Ureter [facility] 02/27/2026 [id number] / / [id number] Procedures Procedure Name Priority Date/Time Associated Diagnosis Comments HEMOGLOBIN Routine 08/02/2023 2:26 PM CDT Chronic blood loss anemia HEMOGLOBIN A1C SCREENING Routine 07/21/2023 9:58 AM CDT Prediabetes HEMOGLOBIN Routine 07/21/2023 9:58 AM CDT Chronic blood loss anemia XR RETROGRADE PYELOGRAM W/WO KUB Routine 07/18/2023 11:04 AM CDT SUPRAGLOTTIC-LMA Routine 07/18/2023 10:1 7 AM CDT CYSTOSCOPY EXCHANGE URETERAL STENT Class E Urgent 07/18/2023 9:41 AM CDT Hydronephrosis BASIC METABOLIC PANEL Routine 07/15/2023 9:40 AM CDT Pre-op exam SCAN-LABORATORY REPORT 07/11/2023 12:00 AM CDT HEMOGLOBIN Routine 07/05/2023 4:00 PM CDT Chronic blood loss anemia CT ABDOMEN PELVIS WO Routine 07/01/2023 8:44 AM CDT Unspecified hydronephrosis SCAN-LABORATORY REPORT 06/25/2023 12:00 AM CDT from Last 3 Months Results * (ABNORMAL) HEMOGLOBIN (08/02/2023 2:26 PM CDT) Only the most recent of3 resultswithin the time period is included. HEMOGLOBIN 10.1(L) 13.5 - 17.5 g/dL 08/02/2023 2:31 PM CDT [facility] MCV 89 80 - 100 fL 08/02/2023 2:31 PM CDT [facility] Blood BLOOD SPECIMEN / Unknown Venipuncture / Unknown 08/02/2023 2:26 PM CDT 08/02/2023 2:26 PM CDT Cesar Mccollum MD HEMATOLOGY [facility] [address] [place] [address], * HEMOGLOBIN A1C SCREENING (07/21/2023 9:58 AM CDT) Pathologist [facility] HEMOGLOBIN A1C SCREENING 5.4 <=6.4 % 07/21/2023 5:56 PM CDT [facility] Blood BLOOD SPECIMEN / Unknown Venipuncture / Unknown 07/21/2023 9:58 AM CDT 07/21/2023 10:00 AM CDT Narrative [facility] - 07/21/2023 5:56 PM CDT ? (<5.7%) ?Normal ? (5.7% to 6.4%) ? Indicates prediabetes ? (>=6.5%) ? Confirms diabetes Falsely low levels may be seen with: Recent Transfusion, Recent Significant Blood Loss, Hemolytic Diseases, or Falsely elevated levels may be seen with: Untreated Anemias, Splenectomy Cesar Mccollum MD [facility] [address] [place] [address], * XR RETROGRADE PYELOGRAM W/WO KUB (07/18/2023 11:04 AM CDT) Anatomical Region Laterality Modality KIDNEYS, Abdomen Digital Radiogr aphy Narrative 07/18/2023 10:10 AM CDT 12 seconds fluoroscopy time was provided. ??See operative/procedure report for further information. Nicola Mcgarry MD GENERAL IMAGING * HCHG MASK PR5 (07/18/2023 10:17 AM CDT) Narrative Fred Kapadia CRNA - 07/18/2023 10:17 AM CDT Fred Kapadia CRNA ? 07/18/2023 10:17 AM Procedure: Supraglottic Patient location during procedure: OR Supraglottic Airway Properties Mask Ventilation: easy Type: unique Tube Size: 5 Insertion Attempts: 1 Placement Verification: auscultation and CO2 detection Assessment Assessment: atraumatic and dentition unchanged Airway Intervention: cuff inflated and secured Cuff Volume: 10 Leonardo Frankel MD ANESTHESIA PX NOTE O RDERABLES * (ABNORMAL) BASIC METABOLIC PANEL (07/15/2023 9:40 AM CDT) SODIUM 141 136 - 145 mmol/L 07/15/2023 5:14 PM CDT [facility] POTASSIUM 4.7 3.5 - 5.1 mmol/L 07/15/2023 5:14 PM CDT [facility] CHLORIDE 106 98 - 107 mmol/L 07/15/2023 5:14 PM CDT [facility] CO2,TOTAL 24 22 - 29 mmol/L 07/15/2023 5:14 PM CDT [facility] ANION GAP 11 5 - 18 07/15/2023 5:14 PM CDT [facility] GLUCOSE 91 70 - 99 mg/dL 07/15/2023 5:14 PM CDT [facility] CALCIUM 9.3 8.8 - 10.2 mg/dL 07/15/2023 5:14 PM CDT [facility] BUN 22 8 - 23 mg/dL 07/15/2023 5:14 PM CDT [facility] CREATININE 1.32(H) 0.70 - 1.20 mg/dL 07/15/2023 5:14 PM CDT [facility] BUN/CREAT RATIO 17 10 - 20 5:14 PM CDT [facility] eGFR 53(L) >90 mL/min/1.7 3m2 07/15/2023 5:14 PM CDT [facility] Comment:As of 2021, eG FR is calculated by the CKD-EPI creatinine equation without race adjustment. ??eGFR can be influenced by muscle mass, exercise, and diet. ??The reported eGFR is an estimation only and is only applicable if the renal function is stable. Blood BLOOD SPECIMEN / Unknown Venipuncture / Unknown 07/15/2023 9:40 AM CDT 07/15/2023 9:40 AM CDT Shannan Bain DO CHEMISTRY [facility] [address] [place] [address], * SCAN-LABORATORY REPORT (07/11/2023 12:00 AM CDT) Only the most recent of2 resultswithin the time period is included. Scanner OTHER * CT ABDOMEN PELVIS WO (07/01/2023 8:44 AM CDT) Anatomical Region Laterality Modality Abdomen, Pelvis, AORTA, LIVER, SPLEEN Computed Tomography 07/01/2023 1:40 PM CDT Narrative 07/01/2023 1:40 PM CDT For Patients: ??As a result of the Cures Act, medical imaging exams and procedure reports are released immediately into your electronic medical record. ??You may view this report before your referring provider. ??If you have questions, please contact your health care provider. Indication: Unspecified hydronephrosis Technique: Noncontrast CT abdomen and pelvis Please note that all CT scans at this facility use dose modulation, iterative reconstruction, and/or weight-based dosing when appropriate to reduce radiation dose to as low as reasonably achievable. Comparison: 02/29/2020 Findings: No pleural effusion. No infiltrate. Normal noncontrast enhanced liver. Gallbladder normal. Diminutive pancreas. Vascular calcifications. Spleen is nonenlarged. Adrenal glands are similar. Right renal cortical atrophy. Left kidney normal. Right ureteral stent. IVC filter. Decreased distention of the right ureter. Persistent soft tissue density about the right UVJ measuring 2.1 cm although improved since the prior study. Diverticulosis. No diverticulitis. No bowel obstruction. No free air, free fluid or abscess. Varicosities within the lower anterior pelvic soft tissues. Facet degeneration lumbar spine. No vertebral body compression fracture. Degenerative changes left hip. Right hip replacement hardware. Impression: Right ureteral stent is present. Decreased distention of the right renal collecting system and ureter. Chronic atrophy of the right renal cortex. Left kidney normal. Persistent soft tissue fullness about the right UVJ. Mild prominence of the rectal wall, correlate with recent colonoscopy. Chronic sigmoid diverticulosis. Please note that all CT scans at this facility use dose modulation, iterative reconstruction, and/or weight-based dosing when appropriate to reduce radiation dose to as low as reasonably achievable. Dictated by Manav Thompson MD @ 07/01/2023 1:40:35 PM (Electronically Signed) Procedure Note Manav Thompson MD - 07/01/2023 For Patients: As a result of the Cures Act, medical imagingexams and procedure reports are released immediately into your electronicmedical record. You may view this report before your referring provider.If you have questions, please contact your health care provider. Indication: Unspecified hydronephrosis Technique: Noncontrast CT abdomen and pelvis Please note that all CT scans at this facility use dose modulation,iterative reconstruction, and/or weight-based dosing when appropriate toreduce radiation dose to as low as reasonably achievable. Comparison: 02/29/2020 Findings: No pleural effusion. No infiltrate. Normal noncontrast enhanced liver.Gallbladder normal. Diminutive pancreas. Vascular calcifications. Spleenis nonenlarged. Adrenal glands are similar. Right renal cortical atrophy.Left kidney normal. Right ureteral stent. IVC filter. Decreased distentionof the right ureter. Persistent soft tissue density about the right UVJmeasuring 2.1 cm although improved since the prior study. Diverticulosis.No diverticulitis. No bowel obstruction. No free air, free fluid orabscess. Varicosities within the lower anterior pelvic soft tissues. Facetdegeneration lumbar spine. No vertebral body compression fracture.Degenerative changes left hip. Right hip replacement hardware. Impression: Right ureteral stent is present. Decreased distention of the right renalcollecting system and ureter. Chronic atrophy of the right renal cortex. Left kidney normal. Persistent soft tissue fullness about the right UVJ. Mild prominence of the rectal wall, correlate with recent colonoscopy. Chronic sigmoid diverticulosis. Please note that all CT scans at this facility use dose modulation,iterative reconstruction, and/or weight-based dosing when appropriate toreduce radiation dose to as low as reasonably achievable. Dictated by Manav Thompson MD @ 07/01/2023 1:40:35 PM (Electronically Signed) Nicola Mcgarry MD CT from Last 3 Months Advance Directives * Full Code (Latest Code Status on File) Date Activated Date Inactivated Comments 07/18/2023 8:18 AM 07/18/2023 5:26 PM Question Answer Comments Code Status Discussion: Unable to Assess Preferences, Provider to review later * Full Code Date Activated Date Inactivated Comments 03/29/2023 9:04 AM 03/29/2023 12:20 PM Question Answer Comments Code Status Discussion: Reviewed Preferences * Full Code Date Activated Date Inactivated Comments 02/15/2023 9:05 AM 02/15/2023 1:47 PM Question Answer Comments Code Status Discussion: Reviewed Preferences * Full Code Date Activated Date Inactivated Comments 12/29/2022 7:15 AM 12/29/2022 12:16 PM Question Answer Comments Code Status Discussion: Unable to Assess Preferences, Provider to review later * Full Code Date Activated Date Inactivated Comments 12/01/2022 6:20 PM 12/02/2022 8:12 PM Question Answer Comments Code Status Discussion: Reviewed Preferences Care Teams Military Analyst Relationship Specialty Start Date End Date Cesar Mccollum MD [address] [place] [id number] PCP - General Family Practice 03/04/20 Nicola Mcgarry MD [address] [place] [phone] Surgery - Urology 03/13/20 Mireya Tan MD [address] [place] [phone] Hematology - Pathology 03/13/20
--- OUTSIDE RECORDS SUMMARY | 2023-08-13 04:17 | XMS_ITS | Clinical Summary ---
Author Name Unknown Organization [facility] Address [address] [place] [address] Care Team Providers Care Manager Party Name Role Phone Cesar Mccollum Primary Care Provider [phone] Allergies No known active allergies Medications Medication [...] 11/22/2022 8:30 AM CDT Plan of Treatment Health Maintenance Due Date Last Done Comments ANNUAL REVIEW OF HM ORDERS 1940 LIPID 1939 Pneumococcal Vaccine: 65+ Years (1 of 2 - PCV) 1945 ZOSTER IMMUNIZATION (1 of 2) 1958 RSV VACCINE ( & 60+) (1 - 1-dose 60+ series) 1999 FALL RISK ASSESSMENT 2004 COVID-19 Vaccine ( season) 2022 09/13/2022, 01/28/2022, 08/26/2021, Additional history exists MEDICARE ANNUAL WELLNESS VISIT 01/28/2023 01/28/2022, 11/20/2020 PHQ-2 (once per calendar year) 2023 INFLUENZA VACCINE (Season Ended) 2023 01/28/2022 DTAP/TDAP/TD IMMUNIZATION (2 - Td or Tdap) 09/07/2026 09/07/2016, 03/26/2003 ADVANCE CARE PLANNING 02/17/2027 02/17/2022 HPV IMMUNIZATION Aged Out No longer e ligible based on patient's age to complete this topic IPV IMMUNIZATION Aged Out No longer e ligible based on patient's age to complete this topic MENINGITIS IMMUNIZATION Aged Out No l onger eligible based on patient's age to complete this topic RSV MONOCLONAL ANTIBODY Aged Out No l onger eligible based on patient's age to complete this topic Medical Devices Implanted Type Area Change Control Analyst Device Identifier Shelf Expiration Date Model / Serial / Lot Stent Ureteral Polaris Ultra [id number] - [id number] Implanted:Qty : 1 on 02/08/2022 by Nicola Ware MD at [facility] Stent Right: U[employer]ter [employer] [id number] 10/08/2024 [id number] Explanted Type Area Change Control Analyst Device Identifier Shelf Expiration Date Model / Serial / Lot Stent Came Out Of The Right Ureter Explanted:Qty: 1 on 02/08/2022 by Nicola Ware MD at [facility] Right: Urethra Advance Directives For more information, please contact: [phone] Documents on File Type Date Recorded Patient Care Asst Expl anation Advance Directives and Living Will 02/17/2022 Health Care Directiv e 05/15/2021 Healthcare Agents on File Name Relationship Healthcare Agent Relationship Communication Mindy Waterman Daughter [employer]-First Alterna te Health Care Agent Meera Vega Spouse Health Care Agent [id number] (Home) Favio Vega Son Co-First Altern ate Health Care Agent Tereso Vega Son [employer]-First Alterna te Health Care Agent Care Teams Manager Party Relationship Specialty Start Date End Date Cesar Mccollum [address] [place] [address] PCP - General Family Medicine 11/22/22
--- OUTSIDE RECORDS SUMMARY | 2023-08-13 04:18 | XMS_ITS | Data Portability ---
Author Name Unknown Address [address] [place] [address] Phone [phone] Organization [facility] Address [address] [place] [address] Care Team Providers Care Demurrage Clerk Name Role Phone MASOUD SAUER Primary Care Provider Assessment No assessment recorded. Plan of Treatment Reminders Order Date Submit Date Provider Last Modified By Organization Details Last Modified Time Details Appointments POST OP 10 2023 01:40P M Nicola Ware MD Not available Not available Not available Lab urinaly sis, dipstic k 2023 024 [email or web address] [facility], [address], [place], [address], 06/23/2023 15:08:54 culture , urine 2023 024 [facility], [address], [address], [place], [address], 06/25/2023 10:11:11 Referral None recorde d. Procedures None recorde d. Surgeries cystosc opy with uretera l stent exchang e (SURG) 2021 022 [email or web address] Not available 03/29/2022 15:46:30 cystosc opy with uretera l stent exchang e (SURG) 2021 022 [email or web address] Not available 01/12/2022 16:50:47 Imaging None recorde d. Medication Orders Bactrim DS 800 mg-160 mg tablet 2023 024 [email or web address] [id number], [address] [place], [place], [phone], 06/23/2023 16:19:28 Myrbetr iq 50 mg tablet, extende d release 2021 022 [email or web address] [facility] #[id number], [address] [place], [place], [id number], 12/30/2021 17:50:02 Patient TargetsNo targets recorded. Patient InstructionsNo instructions recorded. Reason for Referral None Reported. Results Created Date Observation Date Name Description Value Unit Range Abnormal Flag LastModifiedBy Organization Detail LastModifiedTime 06/23/1906/23/2023 URINE CULTU RE final report microb iology result s Not Available [facility] [address], [place], [address], 06/25/2023 10:11:11 06/23/1906/23/2023 urina lysis , dipst ick Color-Status Red Not Available [facility] [address], [place], [address], 06/23/2023 15:08:10 06/23/1906/23/2023 urina lysis , dipst ick pH-Status 7.5 Not Available [facility] [address], [place], [address], 06/23/2023 15:08:10 06/23/1906/23/2023 urina lysis , dipst ick Protein-Stat us >=9.0 Not Available [facility] [address], [place], [address], 06/23/2023 15:08:10 06/23/19 24 06/23/2023 urina lysis , dipst ick Nitrates-Sta tus negati ve Not Available [facility] [address], [place], [address], 06/23/2023 15:08:10 06/23/19 24 06/23/2023 urina lysis , dipst ick Blood-Status Large Not Available [facility] [address], [place], [address], 06/23/2023 15:08:10 06/23/19 24 06/23/2023 urina lysis , dipst ick Leuko-Status Negati ve Not Available [facility] [address], [place], [address], 06/23/2023 15:08:10 06/23/19 24 06/23/2023 urina lysis , dipst ick Specimen Type Voided Not Available [facility] [address], [place], [address], 06/23/2023 15:08:10 03/04/20 20 03/03/2020 NM, bone scan, whole body No observ ation record ed. [email or web address] [facility] [address], [place], [address], 03/11/2020 18:09:57 07/04/19 24 07/01/2023 CT, abdom en + pelvi s, w/o contr ast No observ ation record ed. [email or web address] [facility] [address], [place], [address], 07/04/2023 08:51:59 07/18/19 24 07/18/2023 XR, kidne y + urete r + bladd er No observ ation record ed. [email or web address] [facility] [address], [place], [address], 07/22/2023 15:56:19 Result Notes None recorded. Procedures Surgical History Date Name Laterality Status Provider Name and Address Organization Details Recorded Time Bladder Scan completed SAGE [facility] - [facility] 06/23/2023 15:08:00 Cystoscopy completed Nicola Ware MD [address] [facility],[address], [place], [address], [facility] 12/30/2021 17:11:17 Colonoscopy completed Nicola Ware MD [address] [facility],[address], [place], [address], [place] [facility] 12/30/2021 17:11:22 Imaging Results Imaging Date Name Status LastModified by Organiz ation Details LastModified Time 03/03/2020 NM, bone scan, whole body completed [email or web address] [facility] [address], [place], [address], 03/11/2020 18:09:57 07/01/2023 CT, abdomen + pelvis, w/o contrast active [email or web address] [facility] [address], [place], [address], 07/04/2023 08:51:59 07/18/2023 XR, kidney + ureter + bladder completed [email or web address] [facility] [address], [place], [address], 07/22/2023 15:56:19 Procedure Notes None recorded. Medical Equipment None Reported. Allergies No known drug allergies Medications Name Sig Start Date Stop Date Status Note LastModified by Organization Details LastModified Time atorvastati n 80 mg tablet TAKE 1 TABLET BY MOUTH EVERY DAY active Not Available Not Available No t Available benzonatate 200 mg capsule active Not Available Not Available Not Available metoprolol succinate ER 50 mg tablet,exte nded release 24 hr active Not Available Not Available Not Available clopidogrel 75 mg tablet active Not Available Not Available Not Available sulfamethox azole 800 mg-trimetho prim 160 mg tablet TAKE 1 TABLET BY MOUTH EVERY 12 HOURS FOR 7 DAYS active Not Available Not Available No t Available tamsulosin 0.4 mg capsule TAKE 1 CAPSULE BY MOUTH DAILY active Not Available Not Available No t Available amlodipine 10 mg tablet active Not Available Not Available Not Available hydrocortis one 100 mg/60 mL enema INSERT 1 ENEMA RECTALLY AT BEDTIME FOR 7 DAYS 12/30 completed Not Available Not Available Not Available omeprazole 20 mg capsule,del ayed release active Not Available Not Available Not Available bisacodyl 5 mg tablet,nilay yed release TAKE 1 TABLET BY MOUTH DIRECTED IN [facility] PY PREP INSTRUCTI ONS RECEIVED FROM [facility] active Not Available Not Available No t Available furosemide 20 mg tablet TAKE 1 TABLET BY MOUTH DAILY active Not Available Not Available No t Available cefuroxime axetil 500 mg tablet active Not Available Not Available No t Available polyethylen e glycol 3350 17 gram/dose oral powder MIX AND DRINK DIRECTED IN [employer] PY PREP INSTRUCTI ONS RECEIVED FROM [facility] active Not Available Not Available No t Available amoxicillin 875 mg-potassiu m clavulanate 125 mg tablet TAKE 1 TABLET BY MOUTH TWICE DAILY FOR 7 DAYS 12/30 completed Not Available Not Available Not Available rosuvastati n 40 mg tablet active Not Available Not Available Not Available FeroSul 325 mg (65 mg iron) tablet TAKE 1 TABLET BY MOUTH EVERY OTHER DAY. TAKE WITH 1/2 GLASS OF ORANGE JUICE OR VITAMIN TABLET TABLET active Not Available Not Available No t Available Xarelto 10 mg tablet TAKE 1 TABLET BY MOUTH EVERY DAY active Not Available Not Available No t Available Myrbetriq 25 mg tablet,exte nded release 03/12 completed Not Available Not Available Not Available Myrbetriq 50 mg tablet,exte nded release TAKE 1 TABLET BY MOUTH EVERY DAY active Not Available Not Available No t Available Vitron-C 65 mg iron-125 mg tablet,nilay yed release TAKE 1 TABLET BY MOUTH TWICE DAILY active Not Available Not Available No t Available Vitals Date Recorded Body height Body mass index (BMI) Body weight Provider Name and Address Organization Details Last Updated DateTime 12/30/2021 177.8 cm 27.4 kg/m2 76574.14 g Nicola Ware MD [address] [place] [address], [address], [place] - [facility] 12/30/2021 17:10:12 Date Recorded Body height Body mass index (BMI) Body weight Provider Name and Address Organization Details Last Updated DateTime 03/12/2022 177.8 cm 27.4 kg/m2 38145.14 g Rabia matthews [place] - [facility] 03/12/2022 13:55:47 Social History Question Answer Notes LastModified by Organizat ion Details LastModified Time Tobacco Smoking Status Never Smoker Nicola Ware MD [address] [facility],[address], [place], [address], [facility] - [facility] 12/30/2021 17:11:00 What Is Your Level Of Alcohol Consumption? Occasional [email or web address] Information not available 12/30/2021 What Was The Date Of Your Most Recent Tobacco Screening? 03/12/2022 [email or web address] Information not available 03/12/2022 Sex: Male Functional Status None recorded. Mental Status None recorded. Family History Nothing Reported. Medical History Condition Response Other Y High Blood Pressure Y Cancer Y Past Encounters Encounter ID Performer Location Encounter Start Date Encounter Closed Date Diagnosis/Indication Diagnosis SNOMED-CT Code [id number] MD [facility] [address] [place] [address] 12/30/2021 16:01:19 01/01/2022 09:36:50 Increased frequency of urination 583691044 Malignant tumor of prostate 036996659 Hydronephrosis 74243898 [id number] Aliza Landeros [facility] [address] [place] [address] 03/12/2022 13:13:50 03/15/2022 14:00:47 Increased frequency of urination 694224945 Malignant tumor of prostate 307291886 Hydronephrosis 51150600 [id number] MD [facility] [address] [place] [address] 06/23/2023 14:16:52 06/24/2023 08:40:38 Blood in urine [id number] Health Concerns Section Related Observation LastModified by Organization Detai ls LastModified Time None Recorded Concern Status LastModified by Organization Details LastModified Time None Recorded Advance Directives Directive None Recorded Payers Encounter Date Sequence Insurance Name Policy Number Policy Krishnan Covered Member ID Krishnan Member ID Guarantor Name 06/23/2023 1 [employer] (MEDICARE REPLACEMENT/ ADVANTAGE - PPO) [id number] José Miguel Vega [id number] José Miguel Vega 03/12/2022 1 [employer] (MEDICARE REPLACEMENT/ ADVANTAGE - PPO) [id number] José Miguel Srinivasan Braucher [id number] José Miguel Srinivasan Braucher 12/30/2021 1 [employer] (MEDICARE REPLACEMENT/ ADVANTAGE - PPO) [id number] José Miguel Vega [id number] José Miguel Galeasucher Notes Date Note Type Note Provider Name and Address Organization Details Recorded Time 12/30/2021 text/html HPI Notes: Excer pt from hospital consultation... 81 y.o. year old male who was admitted to [facility] for gross hematuria & CT findings. Onset of hematuria 2 days ago. Also with penile pain over the past two weeks. He denies any past irritative voiding symptoms. He was seen by urologist 10 years ago and found with elevated PSA he cannot recall. MD recommended prostate biopsy but pt declined. 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 PSA 161.87. During the course of his hospital stay he [...] the tube but is not terribly bothersome. 07/02/20: Here for follow up advanced prostate cancer. Completed 32 sessions of primary radiation therapy with Dr. Frazier (03/27/20 - 04/28/20). Reports that he is overall feeling well. Some decrease in energy and intermittent hematuria reports an overall decent appetite and no significant changes in his weight. His nephrostomy tube is draining well and though new since has not provided much discomfort. Medical Oncologist: Dr. Tan Radiation Oncologist: Dr. Frazier 10/08/20 Here for follow up advanced prostate cancer now s/p radiation and maintained on Zytega. Happy to report that his PSA is down to 0.63 ng/mL! Does feel low energy but managing. Has been dealing with intermittent hematuria and blood in stool. Underwent a colonoscopy which was consistent with radiation proctitis. Also reports significant urinary frequency and urgency. 12/30/21: Here for follow up advanced prostate cancer now s/p radiation and maintained on Zytega. He has continued to follow with Dr. Tan with continued good PSA control. Patient is long overdue for stent change. Has found Myrbetriq to be very helpful for his urinary frequency and urgency. Seen today with his who provides some of the history. Nicola Ware MD [address] [facility],[address], [place], [address], [facility] - [facility] 12/30/2021 23:07:10 03/12/2022 text/html HPI Notes: Excer pt from hospital consultation... 81 y.o. year old male who was admitted to [facility] for gross hematuria & CT findings. Onset of hematuria 2 days ago. Also with penile pain over the past two weeks. He denies any past irritative voiding symptoms. He was seen by urologist 10 years ago and found with elevated PSA he cannot recall. recommended prostate biopsy but pt declined. 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 PSA 161.87. During the course of his hospital stay he [...] the tube but is not terribly bothersome. 07/02/20: Here for follow up advanced prostate cancer. Completed 32 sessions of primary radiation therapy with Dr. Frazier (03/27/20 - 04/28/20). Reports that he is overall feeling well. Some decrease in energy and intermittent hematuria reports an overall decent appetite and no significant changes in his weight. His nephrostomy tube is draining well and though new since has not provided much discomfort. Medical Oncologist: Dr. Tan Radiation Oncologist: Dr. Frazier 10/08/20 Here for follow up advanced prostate cancer now s/p radiation and maintained on Zytega. Happy to report that his PSA is down to 0.63 ng/mL! Does feel low energy but managing. Has been dealing with intermittent hematuria and blood in stool. Underwent a colonoscopy which was consistent with radiation proctitis. Also reports significant urinary frequency and urgency. 12/30/21: Here for follow up advanced prostate cancer now s/p radiation and maintained on Zytega. He has continued to follow with Dr. Tan with continued good PSA control. Patient is long overdue for stent change. Has found Myrbetriq to be very helpful for his urinary frequency and urgency. Seen today with his who provides some of the history. 03/12/2022: Here for follow up advanced prostate cancer now s/p radiation and maintained on Zytega, hydronephrosis with indwelling stent, urinary frequency, and urinary urgency. Underwent stent exchange 02/08/2022 with post-operative retention requiring catheterization. Seen today with his who provides some of the history. Nicola Ware MD [address] [place] [address],[address], [place], [address], [facility] 03/12/2022 17:21:47 06/23/2023 text/html HPI Notes: 83 Y male here after calling triage this AM with hematuria/pain with urination. Patient has stent in place, last exchange 02/08/2022. 06/23/23 visit completed by Curry Ware MD [address] [place] [address],[address], [place], [address], [facility] 06/23/2023 16:19:33
--- OUTSIDE RECORDS SUMMARY | 2023-08-13 04:18 | XMS_ITS | Continuity of Care Document ---
Author Name Unknown Address [address] [place] [address] Phone [phone] Organization [facility] Address [address] [place] [address] Care Team Providers Care Cooperative Extension Agent Name Role Phone MASOUD SAUER Primary Care Provider [phone] Assessment No assessment recorded. Plan of Treatment Reminders Order Date Submit Date Provider Last Modified By Organization Details Last Modified Time Details Appointments POST OP 10 2023 01:40P Jose Roberto Ware MD Not available Not available Not available Lab urinaly sis, dipstic k 2023 024 [email or web address] [facility], [address], [place], [address], 06/23/2023 15:08:54 culture , urine 2023 024 [facility], [address] [facility] [address], [address], [place], [address], 06/25/2023 10:11:11 Referral None recorde d. Procedures None recorde d. Surgeries None recorde d. Imaging None recorde d. Medication Orders Bactrim DS 800 mg-160 mg tablet 2023 024 [email or web address] [facility], [address] [place], [place], [id number], 06/23/2023 16:19:28 Patient TargetsNo targets recorded. Patient InstructionsNo instructions recorded. Reason for Referral None Reported. Results Created Date Observation Date Name Description Value Unit Range Abnormal Flag LastModifiedBy Organization Detail LastModifiedTime 06/23/19 24 06/23/2023 urina lysis , dipst ick Color-Status Red Not Available [facility] [address], [place], [address], 06/23/2023 15:08:10 06/23/19 24 06/23/2023 urina lysis , dipst ick pH-Status 7.5 Not Available [facility] [address], [place], [address], 06/23/2023 15:08:10 06/23/19 24 06/23/2023 urina lysis , dipst ick Protein-Stat us >=9.0 Not Available [facility] [address], [place], [address], 06/23/2023 15:08:10 06/23/19 24 06/23/2023 urina lysis , dipst ick Nitrates-Sta tus negati ve Not Available [facility] [address], [place], [address], 06/23/2023 15:08:10 06/23/19 24 06/23/2023 urina lysis , dipst ick Blood-Status Large Not Available [facility] [address], [place], [address], 06/23/2023 15:08:10 06/23/19 24 06/23/2023 urina lysis , dipst ick Leuko-Status Negati ve Not Available [facility] [address], [place], [address], 06/23/2023 15:08:10 06/23/19 24 06/23/2023 urina lysis , dipst ick Specimen Type Voided Not Available [facility] [address], [place], [address], 06/23/2023 15:08:10 07/04/19 24 07/01/2023 CT, abdom en + pelvi s, w/o contr ast No observ ation record ed. [email or web address] [facility] [address], [place], [address], 07/04/2023 08:51:59 07/18/19 24 07/18/2023 XR, kidne y + urete r + bladd er No observ ation record ed. [email or web address] [facility] [address], [place], [address], 07/22/2023 15:56:19 Result Notes None recorded. Procedures Surgical History Date Name Laterality Status Provider Name and Address Organization Details Recorded Time Bladder Scan completed Rabia Ferrell [facility] 06/23/2023 15:08:00 Cystoscopy completed Nicola Ware MD [address] [place] [address],[address], [place], [address], [facility] 12/30/2021 17:11:17 Colonoscopy completed Nicola Ware MD [address] [place] [address],[address], [place], [address], [facility] 12/30/2021 17:11:22 Imaging Results None recorded. Procedure Notes None recorded. Medical Equipment None [...] COLONOSCO PY PREP INSTRUCTI ONS RECEIVED FROM [facility] active Not Available Not Available No t Available furosemide 20 mg tablet TAKE 1 TABLET BY MOUTH DAILY active Not Available Not Available No t Available cefuroxime axetil 500 mg tablet active Not Available Not Available No t Available polyethylen e glycol 3350 17 gram/dose oral powder MIX AND DRINK DIRECTED IN [employer] PY PREP INSTRUCTI ONS RECEIVED FROM [facility] active Not Available Not Available No [...] Available Not Available No t Available Vitals None Recorded Social History Question Answer Notes LastModified by Organizat ion Details LastModified Time Tobacco Smoking Status Never Smoker Nicola Ware MD [address] [facility],[address], [place], [address], [facility] 12/30/2021 17:11:00 What Is Your Level [...] Encounter Closed Date Diagnosis/Indication Diagnosis SNOMED-CT Code [id number] Nicola Ware MD [facility] [address] [address] 06/23/2023 14:16:52 06/24/2023 08:40:38 Blood in urine [id number] Health Concerns Section Related Observation LastModified by Organization Detai ls LastModified Time None Recorded Concern Status LastModified by Organization Details LastModified Time None Recorded Payers Encounter Date Sequence Insurance Name Policy Number Policy Krishnan Covered Member ID Krishnan Member ID Guarantor Name 06/23/2023 1 [employer] (MEDICARE REPLACEMENT/ ADVANTAGE - PPO) [id number] José Miguel Vega [id number] José Miguel Vega Notes Date Note Type Note Provider Name and Address Organization Details Recorded Time 06/23/2023 text/html HPI Notes: 83 Y male here after calling triage this AM with hematuria/pain with urination. Patient has stent in place, last exchange 02/08/2022. 06/23/23 visit completed by Curry Ware MD [address] [place] [address],[address], [place], [address], [facility] 06/23/2023 16:19:33
[2023-08-13 04:21] LABS: RBC Urine >100 (0-2)
[2023-08-13 04:24] LABS: Lactate* 1.6 mmol/L (0.5-1.9)
[2023-08-13 04:25] LABS: Eosinophils Percent Auto 1.5 % (0.0-7.0); Hematocrit 29.1 % (37.0-53.0); Hemoglobin* 8.9 gm/dL (13.5-17.5); Immature Granulocytes Pct Auto 0.1 %; Lymphocytes Percent Auto 5.4 % (20-44); Mean Corpuscular HGB Conc 31 gm/dL (32-36); Mean Corpuscular Hemoglobin 28 pg (26-34); Mean Corpuscular Volume 91 fL (80-100); Monocytes Percent Auto 6.5 % (0.0-11.0); Neutrophils Percent Auto 86.5 % (42.0-72.0); Platelet Count* 297 K/uL (140-440); RDW Coefficient of Variation % 17.3 % (11.5-15.5); Red Blood Count 3.21 m/uL (4.30-5.90); White Blood Count* 11.12 K/uL (4.50-11.00)
[2023-08-13 04:26] LABS: Slide Review Reflex No
--- NOTE | 2023-08-13 04:30 | CT_ITS ---
Patient: SHYAM SANDS Facility:?[facility] Patient ID:?[id number] Site Patient ID:?[id number] Site :?[id number] Study:?CT-Abdomen/Pelvis W/O-08/13/2023 4:58:24 AM Ordering Physician:RAYMOND Final Report: Indication: Hematuria, complicated history of prostate cancer bone Mets and radiation therapy Technique: Volumetric multidetector CT images of the abdomen and pelvis were without the administration of intravenous contrast. Comparison: CT urogram July 17, 2020 Findings: The lung bases are clear. The liver is normal in attenuation without intrahepatic biliary ductal dilatation. The gallbladder is unremarkable without evidence of radiopaque calculus. There is no significant common biliary ductal dilatation or abrupt cut off. The spleen is normal in attenuation and size. The stomach and duodenum are grossly unremarkable. There is mild to moderate pancreatic atrophy. The adrenal glands are unremarkable. There is marked atrophy of the right kidney with demonstration of a right-sided ureteral stent within satisfactory position. There is left-sided hydronephrosis without evidence of obstructive calculus. There is moderate stool seen throughout the colon with mild nonspecific thickening of the rectosigmoid colon. No pericolonic inflammation is appreciated. The appendix is unremarkable. There is no significant mesenteric, retroperitoneal, or pelvic sidewall lymph nodes. The aorta is nonaneurysmal with moderate scattered atherosclerotic calcification. There is demonstration of a Tabares catheter in satisfactory position with moderate layering hyperdense material in the urinary bladder likely representing hemorrhage. There is mild thickening of the presacral space. There is limited evaluation of the pelvis and bladder secondary to beam hardening artifact from right hip arthroplasty. There is no free fluid or free air. There is a small fat containing umbilical hernia. The lumbar vertebral body heights are grossly maintained with mild multilevel degenerative disc disease. There is moderate facet arthrosis. There are sclerotic changes of the sacrum consistent with likely metastatic and posttreatment changes. Impression: Satisfactory position of right-sided ureteral stent with demonstration of moderate hyperdense material seen within the urinary bladder likely representing hemorrhage. No evidence of radiopaque calculus. Mild prominence of the left collecting system. Exam is somewhat limited due to beam hardening artifact from right hip arthroplasty. Posttreatment changes of the pelvis with mild thickening of the rectosigmoid colon and presacral space. 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 Please note that all CT scans at this facility use dose modulation, iterative reconstruction, and/or weight-based dosing when appropriate to reduce radiation dose to as low as reasonably achievable. Dictated by Patricio Alvarado MD @ 08/13/2023 5:22:54 AM Signed by:?Patricio Alvarado MD @08/13/2023 5:22:54 AM (Electronic Signature)
[2023-08-13 04:40] LABS: Chloride* 106 mmol/L (96-114); Potassium* 4.5 mmol/L (3.6-5.1); Sodium* 137 mmol/L (135-149)
[2023-08-13 04:42] LABS: Creatinine* 1.4 mg/dL (0.5-1.5); Est. Creatinine Clearance* 40.56; Estimated Glomerular Filt Rate 50 ml/min
[2023-08-13 04:43] LABS: Anion Gap 7 mEq/L (7-15); Blood Urea Nitrogen* 27 mg/dL (7-30); Calcium* 9.3 mg/dL (8.4-10.6); Carbon Dioxide* 24 mmol/L (20-32); Glucose* 120 mg/dL (60-115)
[2023-08-13 04:48] LABS: C Reactive Protein* < 0.5 mg/dL (0.5-1.0)
[2023-08-13] MEDS: HYDROmorphone 2 MG TABLET 4 MG PO (06:01)
[2023-08-13] MEDS: 0.9 % SODIUM CHLORIDE 1000 ml 1,000 ML 250 ML IV (07:37)
[2023-08-13] MEDS: ONDANSETRON 2 MG/ML inj 4 MG IVP (07:37)
[2023-08-13 11:47] LABS: Hematocrit 27.8 % (37.0-53.0); Hemoglobin* 8.4 gm/dL (13.5-17.5); Immature Granulocytes Pct Auto 0.1 %; Lymphocytes Percent Auto 2.3 % (20-44); Mean Corpuscular HGB Conc 30 gm/dL (32-36); Mean Corpuscular Hemoglobin 28 pg (26-34); Mean Corpuscular Volume 92 fL (80-100); Monocytes Percent Auto 1.2 % (0.0-11.0); Neutrophils Percent Auto 96.4 % (42.0-72.0); Platelet Count* 336 K/uL (140-440); RDW Coefficient of Variation % 17.6 % (11.5-15.5); Red Blood Count 3.02 m/uL (4.30-5.90)
[2023-08-13 11:49] LABS: Slide Review Reflex No
[2023-08-13] MEDS: 0.9 % SODIUM CHLORIDE 1000 ml 1,000 ML IV (13:17)
--- NOTE | 2023-08-13 14:41 | ED.NURSE ---
Blood transfusing at time of tranfer.
== END 2023-08-13 15:06 | disposition short-term general hospital (02) ==
PROVIDERS: Family Medicine; Emergency Provider Family Medicine; PCP Family Medicine
DX: N32.89 Other specified disorders of bladder (principal)
CPT/HCPCS: 36415; 36430; 51702; 51798; 74176; 80048; 81001; 81003; 83605; 85025; 86140; 86850; 86900; 86901; 86922; 87086; 87186; 93005; 96361; 96374; 99284; 99285; 99291; A9270; J2405; J7030; P9016

== ENCOUNTER 2023-08-13 14:18 | Outpatient (CLI) | payer MEDICARE, OTHER, SELFPAY ==
--- OUTSIDE RECORDS SUMMARY | 2023-08-18 05:14 | XMS_ITS | Clinical Summary ---
Author Name Unknown Organization [facility] Address [address] [place] [id number] Care Team Providers Care Lacquer Polisher Name Role Phone Cesar Mccollum Primary Care Provider [phone] Allergies No known active allergies Medications Medication [...] this topic Medical Devices Implanted Type Area Cattery Operator Device Identifier Shelf Expiration Date Model / Serial / Lot Stent Ureteral Polaris Ultra [id number] - [id number] Implanted:Qty : 1 on 02/08/2022 by Nicola Ware MD at [facility] Stent Right: Ureter [employer] [id number] 10/08/2024 [id number] Explanted Type Area Cattery Operator Device Identifier Shelf Expiration Date Model / Serial / Lot Stent Came Out Of The Right Ureter Explanted:Qty: 1 on 02/08/2022 by Nicola Ware MD at [facility] Right: Urethra Advance Directives For more information, please contact: [phone] Documents on File Type Date Recorded Patient Concept Artist Expl anation Advance Directives and Living Will 02/17/2022 Health Care Directiv e 05/15/2021 Healthcare Agents on File Name Relationship Healthcare Agent Relationship Communication Mindy Waterman Daughter Co-First Alterna te Health Care Agent Meera Vega Spouse Health Care Agent [phone] (Home) Favio Vega Son Co-First Altern ate Health Care Agent Tereso Vega Son Co-First Alterna te Health Care Agent Care Teams Lacquer Polisher Relationship Specialty Start Date End Date Cesar Mccollum [address] [place] [address] PCP - General Family Medicine 11/22/22
--- OUTSIDE RECORDS SUMMARY | 2023-08-18 05:14 | XMS_ITS | Encounter Summary ---
Author Name Unknown Organization [facility] Address [address] [place] [address] Care Team Providers Care Telecommunication Systems Designer Name Role Phone Elsewhere, Pcp Primary Care Provider Unavailabl e Encounter Details Date Type Department Care Team (Late st Contact Info) Description 08/15/2023 8:30 AM CDT Anesthesia Event RST ROMB MAIN OR [address] [place] [address] Hayde Song M.D. [address] [place] [address] Anesthesia Record Procedure Summary Procedure Name Responsible Anesthesiologist Anesthesia Start Time Anesthesia Stop Time Palliative EXPLORATORY LAPAROTOMY, CYSTOTOMY CLOSURE, RIGHT URETERAL STENT EXCHANGE (Abdomen) Hayde Song M.D. 08/15/23 0830 08/15/23 1318 Events Date Time Event Comment 08/15/2023 0830 An Start Machine/Equipme nt Checked Infection Precautions Followed Procedure/Site Verified NPO Status Verified Supine Standard ASA Monitors Applied 0837 An Induction 0840 An Intubation 0910 Turnover to Proceduralist 0937 Proc Start 1250 Proc Fin 1250 Turnover to ANE Staff 1253 Airway Removal Criteria Met 1253 Extubation/Airway Removed 1301 an stop data 1318 An End I completed my handoff to the receiving staff during which we 1. Identified the patient 2. Identified the responsible provider 3. Reviewed the pertinent medical history 4. Discussed the surgical course 5. Reviewed intra-op anesthesia management and issues during anesthesia 6. Set expectations for post-procedure period 7. Allowed opportunity for questions and acknowledgement of understanding. Meds Name Total fentanyl injection 50 mcg/mL 200 mcg lidocaine 2% (mg) injection 100 mg rocuronium 10 mg/mL injection 90 mg succinylcholine 20 mg/mL injection 100 m g ondansetron 4 mg/2 mL injection 4 mg sugammadex 100 mg/mL injection 200 mg propofol 10 mg/mL injection 200 mg HYDROmorphone PF 2 mg/mL injection 1.2 m g dexAMETHasone (DECADRON) injection 4 mg/ mL 4 mg phenylephrine 20 mg/250 mL infusion 2.31 mg metoprolol 1 mg/mL injection 3 mg calcium gluconate 100 mg/mL (10%) inject ion 1,000 mg Lactated Ringers Free Drip 1,800 mL lactated ringers free drip 1,200 mL * Agents No agents on file. * Blood No blood administrations on file. Lines, Drains, and Airways Type Details Placement Removal Peripheral IV Placement Date: 08/02; Existing LDA Placed by: Other hospital; Orientation: Anterior, Lower, Right; Location: Forearm 08/13/23 0000 by Jose Haro M.S.NJonah, R.N. Peripheral IV Placement Date: 10/02; Placement Time: 0855; Catheter Size: 16 G; Orientation: Left; Location: Hand 08/15/23 0855 by Rae Gonzalez APRN, EMAIL PRODUCTION CONSULTANT, DNAP Wound 08/15/23; 0958; N; Incision; Pannus; Mid 08/15/23 0958 by Janina Coronado R.N. Bladder Irrigation 08/15/23; 1143; Dr. De Paz; Continuous; Three-way; 24 Fr; 30 mL (balloon filled with 10 ml water); Yes 08/15/23 1143 by Janina Coronado R.N. Closed/Suction Drain 08/15/23; 1215; Med ial; LLQ; Bulb; 15 Fr. 08/15/23 1215 by Janina Coronado R.N. Peripheral IV Placement Date: 08/02; Existing LDA Placed by: Other hospital; Orientation: Left; Location: Antecubital; Removal Date: 08/15/23; Removal Time: 0908/13/23 0000 by Jose Haro M.SNarendra, R.N. 08/15/23 0909 by Rae Gonzalez APRN, CRNA, DNAP Bladder Irrigation 08/13/23; 1706; MJS [place]; Continuous; Three-way; 24 Fr; 30 mL; Yes; 08/15/23; 1029; Per protocol 08/13/23 1706 by Favio August 08/15/23 1029 by Janina Coronado RNarendra ETT Placement Date: 10/02; Placement Time: 0840 (created via procedure documentation); Mask Ventilation: Not attempted; Technique: Video laryngoscopy; Type: Standard ETT; Single Lumen Tube Size: 7.5 mm; Cuffed: Yes; Location: Oral; Grade View: Grade 1; Insertion Attempts: 1; Placement Verification: Bilateral breath sounds, Positive ETCO2, Symmetrical chest wall movement; Removal Date: 08/15/23; Removal Time: 1253 08/15/23 0840 by Rae Gonzalez APRN, CRNA, DNAP 08/15/23 1253 by Rae Gonzalez APRN, CRNA DNAJay Arterial Line Placement Date: 10/02; Placemnt Time: 0951 (created via procedure documentation); Size: 20 G; Orientation: Left; Location: Brachial; Site Prep: Chlorhexidine (Preferred); Technique: Ultrasound guidance; Insertion Attempts: 3; Securement: Securement dressing, Securement device; Removal Date: 08/15/23; Removal Time: 1326; Removal Reason: Per protocol 08/15/23 0951 by Hayde Song M.D. 08/15/23 1326 by Bobby Green R.N. NG/OG Tube 08/15/23; 1234; Nasogastric; Right; 08/17/23; 1430 08/15/23 1234 by Rae Gonzalez APRN, CRNA, DNAP 08/17/23 1430 by Jr Samuel R.Mari. documented in this encounter Social History Tobacco Use Types Packs/Day Years Used Date Smoking Tobacco: Never Smokeless Tobacco: Never CN [employer] Utilities Answer Date Recorded In the past 12 months has [employer], oil, or [employer] threatened to shut off services in your home? No 08/13/2023 Humiliation, Afraid, Rape, and Kick questionnair e Answer Date Recorded Within the last year, have y ou been afraid of your partner or ex-partner? No 08/13/2023 Within the last year, have y ou been humiliated or emotionally abused in other ways by your partner or ex-partner? No Within the last year, have y ou been kicked, hit, slapped, or otherwise physically hurt by your partner or ex-partner? No 08/13/2023 Within the last year, have y ou been raped or forced to have any kind of sexual activity by your partner or ex-partner? No 08/13/2023 Hunger Vital Sign Answer Date Recorded Within the past 12 months, y ou worried that your food would run out before you got the money to buy more. Never true 08/13/19 24 Within the past 12 months, t he food you bought just didn't last and you didn't have money to get more. Never true 08/13/2023 PRAPARE - Transportation Answer Date Re corded In the past 12 months, has l ack of transportation kept you from medical appointments or from getting medications? No 07/2023 In the past 12 months, has l ack of transportation kept you from meetings, work, or from getting things needed for daily living? No 08/13/2023 Nutrition Answer Date Recorded Nutrition: EVOO Fat Source 13 09/22 Nutrition: Servings of Fruits/Vegetables per Day Not on file 09/22/2018 Dental Answer Date Recorded Dental: Regular Dentist Unknown 05/30/19 21 Housing Stability Answer Date Recorded What is your living situation today? I have a [facility] place to live 08/13/2023 Sex and Gender Information Value Date Recorded Sex Assigned at Not on file Gender Identity Not on file Sexual Orientation Not on file documented as of this encounter OR Notes * Anesthesia Postprocedure Evaluation - Nereida Liagn M.D. - 08/15/2023 2:09 PM CDT Patient: Kalen Srinivasan Braucher Procedure Summary Date: 08/15/23 Room / Location: [address] [facility] / [facility] in [place], [place] Anesthesia Start: 829 Anesthesia Stop: 8 Procedures: Palliative EXPLORATORY LAPAROTOMY, CYSTOTOMY CLOSURE, RIGHT URETERAL STENT EXCHANGE (Abdomen) CYSTOSCOPY FLEXIBLE (Bladder) APPLICATION WOUND VACUUM ABDOMEN INCISIONAL (Abdomen) Diagnosis: Rupture Bladder Spontaneous (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) Providers: Boubacar Brock M.D. Responsible Provider: Hayde Song M.D. Anesthesia Type: general ASA Status: 4 Anesthesia Type: general Last vitals Vitals Value Taken Time BP 148/86 08/15/23 1400 Temp 36.6 ??C 08/15/23 1400 Pulse 99 08/15/23 1401 Resp 15 08/15/23 1402 SpO2 94 % 08/15/23 1401 Vitals shown include unfiled device data. Please reference Vitals flowsheet for most recent vital signs. Anesthesia Post Evaluation Patient Disposition: general care unit Cardiovascular status: hemodynamics (HR & BP) acceptable Respiratory status: patent airway with spontaneous effort Temperature: normothermic Oxygen requirements: room air Level of consciousness: awake Pain score: pain adequately controlled and/or at baseline Post Op nausea/vomiting: none Hydration status: euvolemic * Anesthesia Procedure Notes - Rae Gonzalez APRN, GAVIN, DNAP - 08/15/2023 9:51 AM CDTAssociated Order(s): Invasive Catheter Invasive Catheter Date/Time: 08/15/2023 9:51 AM Performed by: Hayde Song M.D. Authorized by: Hayde Song M.D. Location: OR PROCEDURE DETAILS: Line type: arterial Laterality: left Location: brachial Location details: new site Age group: adult Catheter diameter: 20 Ga Technique: ultrasound guided Ultrasound guidance: image acquired and saved Ultrasound comment: ultrasound guidance used demonstrating vessel patency and cannulation of the vessel observed. Monitored: yes Number of attempts: 3 UNIVERSAL PROTOCOL All relevant documentation and testing were reviewed and available. All required blood products, implants, devices and or special equipment were made available as applicable. Pre-procedure verification was conducted and the correct site was marked if required. A fire risk assessment was done as applicable. The procedural time-out to verify correct patient, correct side/site, and procedure was conducted prior to performing the procedure and confirmed in a procedural pause. PRE-PROCEDURE DETAILS: Skin preparation: chlorhexidine SEDATION / ANESTHESIA Anesthesia method: anesthesia POST-PROCEDURE DETAILS: Procedure completed successfully: yes Line secured: secured with sutureless device Chlorhexidine disc around insertion site and under catheter with slight turn: yes Notable Events - arterial: none * Anesthesia Procedure Notes - Rae Gonzalez APRN, CRNA, DNAP - 08/15/2023 9:43 AM CDTAssociated Order(s): Airway Airway Date/Time: 08/15/2023 8:40 AM Performed by: aRe Gonzalez APRN, CRNA, DNAP Authorized by: Hayde Song M.D. Patient location during procedure: OR / Procedure Area PROCEDURE DETAILS: Mask difficulty assessment: not attempted Final airway type: video laryngoscope Laryngeal Manipulation: no Final best view of glottic structures - Cormack/Lehane Score: grade 1 ETT location: oral VL device: glide scope Prospect scope blade size: 4 Tube size: 7.5 ETT distance at teeth/gum: 24 Oral tube type: standard ETT Cuffed: yes Number of attempt to successful placement: 1 Airway confirmation: bilateral breath sounds, positive ETCO2 and bilateral chest rise PRE PROCEDURE DETAILS: Pre evaluation for airway management: procedure Urgency: elective Preop assessment of probable difficulty: questionable / suspicious difficult airway Preoxygenation: bag valve mask SEDATION / ANESTHESIA Anesthesia method: anesthesia POST PROCEDURE DETAILS: Procedure outcome: successful * Anesthesia Preprocedure Evaluation - Hayde Song M.D. - 08/15/2023 7:35 AM CDT Preprocedure Anesthesia & H&P Assessment Procedure Summary Date/Time: 08/15/23 0758 Procedure: Palliative EXPLORATORY LAPAROTOMY, CYSTOTOMY CLOSURE, RIGHT URETERAL STENT EXCHANGE, PROCEED INDICATED, possible multiple trips 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 Location: [place] [address] / [facility] in [place], [place] Providers: Boubacar Brock M.D. Pertinent components of the patient's history including current problem list, medical history, surgical history, family history, social history, medications and allergies were reviewed. Present illness and pre-op diagnosis were confirmed. The planned surgery / procedure was verified with the patient / legal guardian. The patient's general health condition remains unchanged RELEVANT COMORBID CONDITIONS ONC (+) Primary Malignant Neoplasm Of Prostate (HCC) OBJECTIVE PHYSICAL EXAMINATION Airway (HEENT) Mallampati: II TM Distance: >3 FB Neck ROM: Full Mouth Opening: >3 cm Upper Lip Bite Test Class: I Cardiovascular Rhythm: Regular Rate: Normal Cardiovascular Assessment: cardiovascular normal Functional Capacity: >4 METS Pulmonary Pulmonary Assessment: Clear General / Constitutional Constitutional Assessment: Overweight General State of Health:: calm ASSESSMENT / PLAN ANESTHESIA PLAN ASA: 4 Anesthesia Plan: general Patient seen and allergies reviewed; anesthesia plan and risks discussed directly with patient / legal guardian, or through an boot and shoe repairman; patient evaluated and approved for anesthesia / sedation Risks/Benefits/Alternatives of Blood transfusion discussed with patient / legal guardian, includingan opportunity to ask questions and/or decline some or all transfusion therapies. The patient / legal guardian consented to the use of all blood products, as deemed medically necessary Approval to Proceed: approved for anesthesia documented in this encounter Plan of Treatment Not on file documented as of this encounter Procedures Procedure Name Priority Date/Time Associated Diagnosis Comments MC ANE INVASIVE CATH WITH ULTRASOUND Routine 08/15/2023 9:51 AM CDT LDA ANE ARTERIAL LINE INSERTION Routine 08/15/2023 9:51 AM CDT NH US GUIDE VASC ACCESS Routine 08/15/2023 9:51 AM CDT NH ARTL CATH/CNULA MONITOR PERC Routine 08/15/2023 9:51 AM CDT LDA ANE ENDOTRACHEAL AIRWAY Routine 08/15/2023 8:40 AM CDT documented in this encounter Results * NH ARTL CATH/CNULA MONITOR PERC, NH US GUIDE VASC ACCESS, LDA ANE ARTERIAL LINE INSERTION, MC ANE INVASIVE CATH WITH ULTRASOUND (08/15/2023 9:51 AM CDT) Narrative Rae Gonzalez, CLINICAL SOCIAL WORK AIDE, EMAIL PRODUCTION CONSULTANT, DNAP - 08/15/2023 9:51 AM CDT Rae Gonzalez APRN, EMAIL PRODUCTION CONSULTANT, DNAP ? 08/15/2023 ??9:52 AM Invasive Catheter Date/Time: 08/15/2023 9:51 AM Performed by: Hayde Song M.D. Authorized by: Hayde Song M.D. ?? Location: OR PROCEDURE DETAILS: Line type: arterial ?? Laterality: left Location: brachial Location details: new site ? Age group: adult Catheter diameter: 20 Ga Technique: ultrasound guided ?? Ultrasound guidance: image acquired and saved Ultrasound comment: ultrasound guidance used demonstrating vessel patency and cannulation of the vessel observed. Monitored: yes ?? Number of attempts: 3 UNIVERSAL PROTOCOL All relevant documentation and testing were reviewed and available. All required blood products, implants, devices and or special equipment were made available as applicable. Pre-procedure verification was conducted and the correct site was marked if required. A fire risk assessment was done as applicable. The procedural time-out to verify correct patient, correct side/site, and procedure was conducted prior to performing the procedure and confirmed in a procedural pause. PRE-PROCEDURE DETAILS: Skin preparation: chlorhexidine ?? SEDATION / ANESTHESIA Anesthesia method: anesthesia POST-PROCEDURE DETAILS: Procedure completed successfully: yes ?? Line secured: secured with sutureless device Chlorhexidine disc around insertion site and under catheter with slight turn: yes ?? Notable Events - arterial: none Hayde Song M.D. PROCEDURE/MINOR TESFAYE GICAL ORDERABLES * LDA ANE ENDOTRACHEAL AIRWAY (08/15/2023 8:40 AM CDT) Narrative Rae Gonzalez, CLINICAL SOCIAL WORK AIDE, EMAIL PRODUCTION CONSULTANT, DNAP - 08/15/2023 8:40 AM CDT Rae Gonzalez CLINICAL SOCIAL WORK AIDE, EMAIL PRODUCTION CONSULTANT, DNAP ? 08/15/2023 ??9:48 AM Airway Date/Time: 08/15/2023 8:40 AM Performed by: Rae Gonzalez APRN, GAVIN, DNAP Authorized by: Hayde Song M.D. ?? Patient location during procedure: OR / Procedure Area PROCEDURE DETAILS: Mask difficulty assessment: not attempted Final airway type: video laryngoscope Laryngeal Manipulation: no ?? Final best view of glottic structures - Cormack/Lehane Score: grade 1 ETT location: oral VL device: glide scope Prospect scope blade size: 4 Tube size: 7.5 ETT distance at teeth/gum: 24 Oral tube type: standard ETT Cuffed: yes Number of attempt to successful placement: 1 Airway confirmation: bilateral breath sounds, positive ETCO2 and bilateral chest rise PRE PROCEDURE DETAILS: Pre evaluation for airway management: procedure Urgency: elective Preop assessment of probable difficulty: questionable / suspicious difficult airway Preoxygenation: bag valve mask SEDATION / ANESTHESIA Anesthesia method: anesthesia POST PROCEDURE DETAILS: ? Procedure outcome: successful ?? Hayde Song M.D. ANESTHESIA ORDERABL ES documented in this encounter Visit Diagnoses Not on filedocumented in this encounter Administered Medications Inactive Administered Medications - up to 3 most recent administrations Medication Order MAR Action Action Date Dose Rate Site calcium gluconate injection intravenous, As needed, Starting on Tue08/15/23 at 1036, Anesthesia Intra-op Given 08/15/2023 10:56 AM CDT 500 mg Given 08/15/2023 10:36 AM CDT 500 mg dexAMETHasone injection (DECADRON) intravenous, As needed, Starting on Tue08/15/23 at 0930, Anesthesia Intra-op Given 08/15/2023 9:30 AM CDT 4 mg fentaNYL injection (SUBLIMAZE) intravenous, As needed, Starting on Tue08/15/23 at 0926, Anesthesia Intra-op Given 08/15/2023 9:51 AM CDT 25 mcg Given 08/15/2023 9:38 AM CDT 25 mcg Given 08/15/2023 9:26 AM CDT 50 mcg HYDROmorphone (PF) injection (DILAUDID) intravenous, As needed, Starting on Tue08/15/23 at 0925, Anesthesia Intra-op Given 08/15/2023 12:36 PM CDT 0.2 mg Given 08/15/2023 9:38 AM CDT 0.4 mg Given 08/15/2023 9:25 AM CDT 0.6 mg Lactated Ringer's intravenous, Continuous Infusion: Per Instructions PRN, Starting on Tue08/15/23 at 0830, Anesthesia Intra-op New Bag 08/15/2023 10:03 AM CDT New Bag 08/15/2023 8:30 AM CDT Lactated Ringer's intravenous, Continuous Infusion: Per Instructions PRN, Starting on Tue08/15/23 at 0845, Anesthesia Intra-op New Bag 08/15/2023 10:03 AM CDT New Bag 08/15/2023 8:45 AM CDT lidocaine (PF) (cardiac) injection intravenous, As needed, Starting on Tue08/15/23 at 0837, Anesthesia Intra-op Given 08/15/2023 8:37 AM CDT 100 mg metoprolol injection (LOPRESSOR) intravenous, As needed, Starting on Tue08/15/23 at 1003, Anesthesia Intra-op Given 08/15/2023 12:32 PM CDT 1 mg Given 08/15/2023 12:02 PM CDT 1 mg Given 08/15/2023 10:03 AM CDT 1 mg ondansetron (PF) injection (ZOFRAN) intravenous, As needed, Starting on Tue08/15/23 at 1153, Anesthesia Intra-op Given 08/15/2023 11:53 AM CDT 4 mg phenylephrine 80 mcg/mL in NaCl 0.9% 250 mL infusion intravenous, Continuous Infusion: Per Instructions PRN, Starting on Tue08/15/23 at 0845, Anesthesia Intra-op Restarted 08/15/2023 11:12 AM CDT 0.1 mcg/kg/min 6.84 mL/hr Restarted 08/15/2023 10:08 AM CDT 0.2 mcg/kg/min 13.68 mL /hr Rate/Dose Change 08/15/2023 9:10 AM CDT 0.3 mcg/kg/min 20. 52 mL/hr propofoL injection (DIPRIVAN) intravenous, As needed, Starting on Tue08/15/23 at 0838, Anesthesia Intra-op Given 08/15/2023 8:37 AM CDT 200 mg rocuronium injection (ZEMURON) intravenous, As needed, Starting on Tue08/15/23 at 0841, Anesthesia Intra-op Given 08/15/2023 11:53 AM CDT 10 mg Given 08/15/2023 9:50 AM CDT 30 mg Given 08/15/2023 9:05 AM CDT 30 mg succinylcholine (PF) injection (ANECTINE) intravenous, As needed, Starting on Tue08/15/23 at 0839, Anesthesia Intra-op Given 08/15/2023 8:37 AM CDT 100 mg sugammadex injection (BRIDION) intravenous, As needed, Starting on Tue08/15/23 at 1233, Anesthesia Intra-op Given 08/15/2023 12:33 PM CDT 200 mg documented in this encounter Care Teams Telecommunication Systems Designer Relationship Specialty Start Date End Date Elsewhere, Pcp PCP - General Internal Medicine 08/13/23 documented as of this encounter
--- OUTSIDE RECORDS SUMMARY | 2023-08-18 05:14 | XMS_ITS | Referral Summary ---
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 For routine questions regarding patient records, call [phone] during business hours, M-F 8:00 AM - 5:00 PM Central Time. Record requests for emergency care only can be directed to [phone] at any time.[facility] Encounters Date Type Department Care Team Description 08/15/2023 8:30 AM CDT Anesthesia Event [facility] [address] [place] [phone] Hayde Song M.D. 08/15/2023 7:55 AM CDT - 08/15/2023 11:23 AM CDT Surgery [facility] [address] [place] [phone] Boubacar Brock M.D. Palliative EXPLORATORY LAPAROTOMY, CYSTOTOMY CLOSURE, RIGHT URETERAL STENT EXCHANGE 08/13/2023 4:35 PM CDT Ancillary Procedure Department of Radiology in [place], [place] [address] [place] [phone] Carlos Alberto Henson M.D. 08/13/2023 3:42 PM CDT - Present Hospital Encounter [facility], [facility], [facility], Sixth Floor [address] [place] [phone] Darnell Garcia M.D. Chow, George K, M.D. Decline Functional Status [R53.81] (Primary Dx) 08/13/2023 Intake [facility] from Last 3 Months Allergies No known active allergies Medications Medication Sig Dispensed Refills Start Date End Date Status amLODIPine (NORVASC) 10 mg tablet Take 10 mg by mouth daily. 01/11/2020 Suspended atorvastatin (LIPITOR) 40 mg tablet TK 1 T PO QHS 01/11/2020 4 Discontinued bicalutamide (CASODEX) 50 mg tablet TK 1 T PO D 03/12/2020 4 Discontinued clopidogreL (PLAVIX) 75 mg tablet TK 1 T PO QD 12/27/2019 Suspended metoprolol succinate (TOPROL-XL) 50 mg 24 hr tablet Take 50 mg by mouth daily. 11/02/2019 Suspended nitroglycerin (NITROSTAT) 0.[address] 0.4 mg under the tongue. 11/02/[address] Sus[address] aspirin [address] tablet Take 81 mg by mouth daily. 4 Discontinued tamsulosin (FLOMAX) 0.4 mg 24 hr capsule TAKE 1 CAPSULE(0.4 MG) BY MOUTH DAILY 30 capsule 06/10/2020 Suspended Additional Information enzalutamide (XTANDI) 40 mg capsule Take 120 mg by mouth daily. Take with or without food at the same time each day. Swallow it whole. Suspended iron,carbonyl-vi tamin C (VITRON-C) 65 mg iron- [address] tablet Take 65 mg of iron by mouth daily. Do not crush or chew. Suspended coenzyme Q10 (CO Q-10) 200 mg capsule Take 200 mg by mouth daily. Suspended cholecalciferol (Vitamin D3) 50 mcg (2,000 Unit) tablet Take 50 mcg by mouth daily. Suspended rosuvastatin (CRESTOR) 40 mg tablet Take 40 mg by mouth daily. Suspended mirabegron (MYRBETRIQ) 50 mg 24 hr tablet Take 50 mg by mouth daily. Suspended Active Problems Problem Noted Date Diagnosed Date Hematuria 08/13/2023 Lymphedema 03/21/2020 Primary Malignant Neoplasm Of Prostate 0 Cancer Staging:Clinical stage from 03/03/2020:Stage IVB(cT4, cN1, pM1b, PSA: 161.9) - Signed by Tereso Frazier M.D. on 03/21/2020 Social History Tobacco Use Types Packs/Day Years Used Date Smoking Tobacco: Never Smokeless Tobacco: Never Tobacco Cessation:Counseling Given: Not Answered [facility] Utilities Answer Date Recorded In the past 12 months has th e electric, gas, oil, or water company threatened to shut off services in your [...] your living situation today? I have a [facility] place to live 08/13/2023 Sex and Gender Information Value Date Recorded Sex Assigned at Not on file Gender Identity Not on file Sexual Orientation Not on file Last Filed Vital Signs Vital Sign Reading Time Taken Comments Blood Pressure 171/90 08/18/2023 4:48 AM CDT sx notified Pulse 98 08/18/2023 4:48 AM CDT Temperature 36.8 ??C (98.2 ??F) 08/18/2023 4:48 AM CD T Respiratory Rate 18 08/18/2023 4:48 AM CDT Oxygen Saturation 97% 08/18/2023 4:48 AM CDT Inhaled Oxygen Concentration - - Weight 91.2 kg (201 lb 1 oz) 08/13/2023 7:00 PM CDT Height 180 cm (5' 10.87) 08/13/2023 7:00 PM CDT Body Mass Index 28.15 08/13/2023 7:00 PM CDT Plan of Treatment Not on file Medical Devices Implanted Type Area After School Program Teacher Device Identifier Shelf Expiration Date Model / Serial / Lot Clp Hrzn Ti 6 Clp Lg Orng - [id number] Implanted:Qt y: 1 on 08/15/2023 by Boubacar Brock M.D. at [facility] Hardware e.g. pins/screws /rods [employer] [id number] 02/29/2028 [id number] / / [id number] Clp Hrzn Ti 6 Clp Lg Orng - [id number] Implanted:Qt y: 1 on 08/15/2023 by Boubacar Brock M.D. at [facility] Hardware e.g. pins/screws /rods [employer] [id number] 02/29/2028 [id number] / / [id number] Clp Hrzn Ti 6 Clp Md Monty - [id number] Implanted:Qt y: 1 on 08/15/2023 by Boubacar Brock M.D. at [facility] Hardware e.g. pins/screws /rods [employer]dom[employer] [id number] 03/13/2028 [id number] / / [id number] Clp Hrzn Ti 6 Clp Md Monty - [id number] Implanted:Qt y: 1 on 08/15/2023 by Boubacar Brock M.D. at [facility] Hardware e.g. pins/screws /rods [employer]dom[employer] [id number] 03/21/2028 [id number] / / [id number] Stnt Uret Inl 6fx24 - [id number] Implanted:Qt y: 1 on 08/15/2023 by Jakob De Paz M.D. at [facility] Ureteral Stent N/A: Ureter C.[employer].Bard [id number] 11/18/2027 [id number] / / [id number] Procedures The patient is currently admitted. The information in this section might not be complete until the patient is discharged. Procedure Name Priority Date/Time Associated Diagnosis Comments ACTIVATED PARTIAL THROMBOPLASTIN TIME (APTT), P Timed 08/17/2023 11:04 PM CDT US LOWER EXTREMITY VEINS BILATERAL RAD - Routine (most inpatients and all outpatients) 08/17/2023 6:58 PM CDT Procedure Note - Senthil Canales M.D. / Radiologist, [facility] - 08/17/2023 6:58 PM CDTThis note is in progress. EXAM: US LOWER EXTREMITY VEINS BILATERAL Exam performed with color and spectral Doppler analysis. COMPARISON: No relevant comparisons FINDINGS: RIGHT: External Iliac Vein: Aging, incompletely recanalized thrombus Common Femoral Vein: Aging, incompletely recanalized thrombus. Profunda Femoral Vein: Negative. Femoral Vein: Aging, incompletely recanalized thrombus. Popliteal Vein: Aging, incompletely recanalized thrombus. Gastrocnemius Veins: Negative where seen. Soleal Veins: Negative where seen. Posterior Tibial Veins: Negative where seen. Peroneal Veins: Negative where seen. Great Saphenous Vein: Negative where seen. Small Saphenous Vein: Not Evaluated. Popliteal Fossa: Lambert's cyst measuring 0.9 x 1.7 x 5.1 cm. Other: Collateral veins are identified about the right saphenofemoraljunction, compatible with a more chronic nature of the patient's DVT. LEFT: Common Femoral Vein: Negative. Profunda Femoral Vein: Negative. Femoral Vein: Negative. Popliteal Vein: Negative. Gastrocnemius Veins: Negative where seen. Soleal Veins: Negative where seen. Posterior Tibial Veins: Negative where seen. Peroneal Veins: Negative where seen. Great Saphenous Vein: Negative where seen. Small Saphenous Vein: Not Evaluated. Popliteal Fossa: Negative. Other: n/a Information on venous thrombosis and management can be found on theAskPictrition App site. [email or web address]/cn [email or web address] Findings discussed with Tayler Greenwood MD ([id number]) on 08/17/2023 7:11 PM. IMPRESSION: 1. 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 2. No acute left-sided DVT. ACTIVATED PARTIAL THROMBOPLASTIN TIME (APTT), P STAT 08/17/2023 4:56 PM CDT ECG Semiurgent (Fast, most ED patients, some inpatients) 08/16/2023 9:43 PM CDT CBC WITHOUT DIFFERENTIAL, B Timed 08/16/2023 9:40 PM CDT BASIC METABOLIC PANEL, S/P Timed 08/16/2023 9:40 PM CDT TRANSFUSE RED BLOOD CELLS Routine 08/16/2023 8:07 AM CDT BASIC METABOLIC PANEL, S/P Routine 08/16/2023 3:10 AM CDT CBC WITHOUT DIFFERENTIAL, B Routine 08/16/2023 3:10 AM CDT CBC WITH DIFFERENTIAL, B Timed 08/15/2023 3:58 PM CDT DX ABDOMEN 1 VIEW RAD - Routine (most inpatients and all outpatients) 08/15/2023 1:19 PM CDT PATIENT STATUS STAT 08/15/2023 11:56 AM CDT LACTATE, B STAT 08/15/2023 11:56 AM CDT GLUCOSE, WHOLE BLOOD STAT 08/15/2023 11:56 AM CDT POTASSIUM, B STAT 08/15/2023 11:56 AM CDT SODIUM, B STAT 08/15/2023 11:56 AM CDT CALCIUM, IONIZED, S/B STAT 08/15/2023 11:56 AM CDT ABG W/COOX STAT 08/15/2023 11:56 AM CDT FL FLUORO LESS THAN 1 HOUR RAD - Routine (most inpatients and all outpatients) 08/15/2023 11:22 AM CDT PATIENT STATUS STAT 08/15/2023 10:28 AM CDT LACTATE, B STAT 08/15/2023 10:28 AM CDT GLUCOSE, WHOLE BLOOD STAT 08/15/2023 10:28 AM CDT POTASSIUM, B STAT 08/15/2023 10:28 AM CDT SODIUM, B STAT 08/15/2023 10:28 AM CDT CALCIUM, IONIZED, S/B STAT 08/15/2023 10:28 AM CDT ABG W/COOX STAT 08/15/2023 10:28 AM CDT MC ANE INVASIVE CATH WITH ULTRASOUND Routine 08/15/2023 9:51 AM CDT LDA ANE ARTERIAL LINE INSERTION Routine 08/15/2023 9:51 AM CDT WA US GUIDE VASC ACCESS Routine 08/15/2023 9:51 AM CDT WA ARTL CATH/CNULA MONITOR PERC Routine 08/15/2023 9:51 AM CDT LDA ANE ENDOTRACHEAL AIRWAY Routine 08/15/2023 8:40 AM CDT APPLICATION WOUND VACUUM ABDOMEN 08/15/2023 8:10 AM CDT Rupture Bladder Spontaneous CYSTOSCOPY FLEXIBLE 08/15/2023 8:10 AM CDT Rupture Bladder Spontaneous EXPLORATORY LAPAROTOMY 08/15/2023 8:10 AM CDT Rupture Bladder Spontaneous BACTERIA / SHIRIN CULTURE, BLOOD Routine 08/15/2023 3:33 AM CDT BASIC METABOLIC PANEL, S/P Timed 08/15/2023 3:31 AM CDT BACTERIA / SHIRIN CULTURE, BLOOD Routine 08/15/2023 3:31 AM CDT CBC WITH DIFFERENTIAL, B Timed 08/15/2023 3:30 AM CDT CBC WITH DIFFERENTIAL, B Timed 08/14/2023 8:08 PM CDT TRANSFUSE RED BLOOD CELLS Routine 08/14/2023 4:25 PM CDT TRANSFUSE RED BLOOD CELLS Routine 08/14/2023 1:57 PM CDT CBC WITH DIFFERENTIAL, B Timed 08/14/2023 3:18 AM CDT BASIC METABOLIC PANEL, S/P Timed 08/14/2023 3:18 AM CDT PREPARE RED BLOOD CELLS STAT 08/13/2023 7:35 PM CDT PREPARE RED BLOOD CELLS Routine 08/13/2023 7:35 PM CDT TYPE AND SCREEN Timed 08/13/2023 7:35 PM CDT BACTERIA / SHIRIN CULTURE, BLOOD STAT 08/13/2023 7:35 PM CDT ECG Routine 08/13/2023 7:[address] CYSTOGRAM WITHOUT IV CONTRAST RAD - Emergent (Fastest; for the most critically ill patients) 08/13/2023 6:34 PM CDT MAGNESIUM, S Timed 08/13/2023 5:27 PM CDT HEPATIC FUNCTION PANEL, S Timed 08/13/2023 5:27 PM CDT BASIC METABOLIC PANEL, S/P Timed 08/13/2023 5:27 PM CDT PROTHROMBIN TIME (PT), P Timed 08/13/2023 5:27 PM CDT CBC WITH DIFFERENTIAL, B Timed 08/13/2023 5:27 PM CDT BACTERIA / SHIRIN CULTURE, BLOOD STAT 08/13/2023 5:27 PM CDT DIPSTICK, U Timed 08/13/2023 5:07 PM CDT HC OSMOLALITY ASSAY URINE Timed 08/13/2023 5:07 PM CDT MICROSCOPIC MANUAL Timed 08/13/2023 5:07 PM CDT PH, RANDOM, U Timed 08/13/2023 5:07 PM CDT URINALYSIS WITH MICROSCOPIC Timed 08/13/2023 5:07 PM CDT BACTERIAL CULTURE, AEROBIC + SUSC, URINE Timed 08/13/2023 5:07 PM CDT INTERPRETATION OF OUTSIDE CT ABDOMEN AND OR PELVIS RAD - Routine (most inpatients and all outpatients) 08/13/2023 4:[address] BODY Routine 08/13/2023 4:35 AM CDT from Last 3 Months Results * (ABNORMAL) APTT (Activated Partial Thromboplastin Time) (08/17/2023 11:04 PM CDT) Only the most recent of2 resultswithin the time period is included. Activated Partial Thrombopl Time, P 40(H) 25 - 37 sec 08/17/2023 11:46 PM CDT DTL Blood (Blood, Venous) 08/17/2023 11:04 PM CDT 08/17/2023 11:31 PM CDT Boubacar Brock M.D. LAB BLOOD ADD-ON Performing Organization Address City/[facility] Co de Phone Number [facility] [address] [place] [address], [place] DTL [facility] [address] [place] [address] * ECG 12 Lead (08/16/2023 9:43 PM CDT) Only the most recent of2 resultswithin the time period is included. Ventricular Rate ECG/Min 134 BPM MUSE WA Interval 136 ms MUSE QRSD Interval 76 ms MUSE QT Interval 298 ms MUSE QTC Interval 445 ms MUSE P [place] 29 degrees MUSE R [place] -6 degrees MUSE T Wave [place] 21 degrees MUSE 08/16/2023 9:43 PM CDT 08/16/2023 9:50 PM CDT Impressions MUSE - 08/16/2023 9:50 PM CDT Sinus tachycardia Nonspecific ST and T wave abnormality When compared with ECG of 13-Aug-2023 19:02, ST now depressed in Anterolateral leads Reviewed by BETTY Shaw Narrative Procedure Note Roby Marcus M.D. - 08/16/2023 IMPRESSION: Sinus tachycardia Nonspecific ST and T wave abnormality When compared with ECG of 13-Aug-2023 19:02, ST now depressed in Anterolateral leads Reviewed by BETTY Shaw Geneva Azar M.D. ECG ORDERABLES Performing Organization Address [facility] Co de Phone Number MUSE NA * (ABNORMAL) CBC without Differential (08/16/2023 9:40 PM CDT) Only the most recent of2 resultswithin the time period is included. Hemoglobin 8.8(L) 13.2 - 16.6 g/dL 08/16/2023 9:57 PM CDT DTL Hematocrit 26.2(L) 38.3 - 48.6 % 08/16/2023 9:57 PM CDT DTL Erythrocytes 3.07(L) 4.35 - 5.65 x10(12)/L 08/16/2023 9:57 PM CDT DTL MCV 85.3 78.2 - 97.9 fL 08/16/2023 9:57 PM CDT DTL RBC Distrib Width 16.6(H) 11.8 - 14.5 % 08/16/2023 9:57 PM CDT DTL Platelet Count 214 135 - 317 x10(9)/L 08/16/2023 9:57 PM CDT DTL Leukocytes 12.0(H) 3.4 - 9.6 x10(9)/L 08/16/2023 9:57 PM CDT DTL Blood (Blood, Venous) 08/16/2023 9:40 PM CDT 08/16/2023 9:53 PM CDT Geneva Azar M.D. LAB BLOOD ADD-ON [facility] [address] [place] [address], [facility] [address] [place] [address] * (ABNORMAL) Basic Metabolic Panel (08/16/2023 9:40 PM CDT) Only the most recent of5 resultswithin the time period is included. Pathologist [facility] Potassium, S 3.9 3.6 - 5.2 mmol/L 08/16/2023 10:34 PM CDT DTL Sodium, S 138 135 - 145 mmol/L 08/16/2023 10:34 PM CDT DTL Chloride, S 104 98 - 107 mmol/L 08/16/2023 10:34 PM CDT DTL Bicarbonate, S 21(L) 22 - 29 mmol/L 08/16/2023 10:34 PM CDT DTL Anion Gap 13 7 - 15 08/16/2023 10:34 PM CDT DTL BUN (Blood Urea Nitrogen), S 30(H) 8 - 24 mg/dL 08/16/2023 10:34 PM CDT DTL Creatinine 1.38(H) 0.74 - 1.35 mg/dL 08/16/2023 10:34 PM CDT DTL Estimated GFR (eGFR) 50(L) >=60 mL/min/BSA 08/16/2023 10:34 PM CDT DTL Comment: Estimated GFR calculated using the 2020 CKD_EPI creatinine equation. Calcium, Total, S 7.8(L) 8.8 - 10.2 mg/dL 08/16/2023 10:34 PM CDT DTL Glucose, S 101 70 - 140 mg/dL 08/16/2023 10:34 PM CDT DTL Blood (Blood, Venous) 08/16/2023 9:40 PM CDT 08/16/2023 10:06 PM CDT Geneva Azar M.D. LAB BLOOD ADD-ON [facility] [address] [place] [address], [facility] [address] [place] [address] * Transfuse Red Blood Cells : (08/16/2023 12:04 PM CDT) Only the most recent of3 resultswithin the time period is included. Corin Ring M.D. BLOOD TRANSFUSION OR DERABLES * (ABNORMAL) CBC with Differential, Blood (08/15/2023 3:58 PM CDT) Only the most recent of5 resultswithin the time period is included. Hemoglobin 9.0(L) 13.2 - 16.6 g/dL 08/15/2023 4:36 PM CDT DTL Hematocrit 27.3(L) 38.3 - 48.6 % 08/15/2023 4:36 PM CDT DTL Erythrocytes 3.15(L) 4.35 - 5.65 x10(12)/L 08/15/2023 4:36 PM CDT DTL MCV 86.7 78.2 - 97.9 fL 08/15/2023 4:36 PM CDT DTL RBC Distrib Width 16.9(H) 11.8 - 14.5 % 08/15/2023 4:36 PM CDT DTL Platelet Count 200 135 - 317 x10(9)/L 08/15/2023 4:36 PM CDT DTL Leukocytes 13.5(H) 3.4 - 9.6 x10(9)/L 08/15/2023 4:36 PM CDT DTL Neutrophils 12.72(H) 1.56 - 6.45 x10(9)/L 08/15/2023 4:36 PM CDT DHPM Lymphocytes 0.24(L) 0.95 - 3.07 x10(9)/L 08/15/2023 4:36 PM CDT DTL Monocytes 0.47 0.26 - 0.81 x10(9)/L 08/15/2023 4:36 PM CDT DTL Eosinophils <0.03 0.03 - 0.48 x10(9)/L 08/15/2023 4:36 PM CDT DTL Basophils <0.03 0.01 - 0.08 x10(9)/L 08/15/2023 4:36 PM CDT DTL Blood (Blood, Venous) 08/15/2023 3:58 PM CDT 08/15/2023 4:25 PM CDT Carlos Alberto Henson M.D. LAB BLOOD ADD-ON [facility] [address] [place] [address], [facility] DTL [facility] [address] [place] [address] DHPM [facility] [address] [place] [address] * DX Abdomen 1 View (08/15/2023 1:19 PM CDT) Anatomical Region Laterality Modality Abdomen, Abdominal RST LOS, Abdominal ARZ LOS, Abdominal FLA LOS N/A Computed Radiography Impressions 08/15/2023 1:51 PM CDT Negative for postoperative purposes. Right ureteral stent. Gaseous distention of loops of bowel in a nonobstructive pattern. NGT with tip and sidehole in stomach. Remainder negative. Narrative 08/15/2023 1:51 PM CDT EXAM: ??DX ABDOMEN 1 VIEW Procedure Note Timmy, Barrington A, M.D. - 08/15/2023 EXAM: DX ABDOMEN 1 VIEW IMPRESSION: Negative for postoperative purposes. Right ureteral stent. Gaseousdistention of loops of bowel in a nonobstructive pattern. NGT with tip andsidehole in stomach. Remainder negative. Boubacar Brock M.D. IMG DIAGNOSTIC IMAGI NG PROCEDURES * Lactate, B - Intra-op (08/15/2023 11:56 AM CDT) Only the most recent of2 resultswithin the time period is included. Lactate, B 1.1 0.5 - 2.2 mmol/L 08/15/2023 12:06 PM CDT STMA Blood (Blood, Venous) 08/15/2023 11:56 AM CDT 08/15/2023 12:03 PM CDT Hayde Song M.D. LAB BLOOD NON ADD-O N Performing Organization Address City/[facility]/ZIP Co de Phone Number [facility] [address] [facility] [address] [place] [address] * Patient Status (08/15/2023 11:56 AM CDT) Only the most recent of2 resultswithin the time period is included. Temperature 36.2 37.0 deg C 08/15/2023 12:04 PM CDT STMA Blood 08/15/2023 11:5 6 AM CDT 08/15/2023 12:03 PM CDT Rae Gonzalez APRN, GAVIN, DNAP LAB BLOO D NON ADD-ON Performing Organization Address City/[facility]/ZIP Co de Phone Number [facility] [address] [place] [address], [facility] STMA [facility] [address] [place] [address] * Sodium, B (08/15/2023 11:56 AM CDT) Only the most recent of2 resultswithin the time period is included. Sodium, B 135 135 - 145 mmol/L 08/15/2023 12:06 PM CDT STMA Blood (Blood, Arterial Line) 08/15/2023 11:56 AM CDT 08/15/2023 12:03 PM CDT Hayde Song M.D. LAB BLOOD NON ADD-O N [facility] [address] [place] [address], [facility] [address] [place] [address] * (ABNORMAL) Blood Gas with Coox, Arterial (08/15/2023 11:56 AM CDT) Only the most recent of2 resultswithin the time period is included. pO2 166(H) 83 - 108 mm Hg 08/15/2023 12:06 PM CDT STMA pCO2 45 35 - 48 mm Hg 08/15/2023 12:06 PM CDT STMA pH 7.29(L) 7.35 - 7.45 pH 08/15/2023 12:06 PM CDT STMA Base Excess -5(L) -2 - 3 mmol/L 08/15/2023 12:06 PM CDT STMA HCO3 22 22 - 26 mmol/L 08/15/2023 12:06 PM CDT STMA Hemoglobin, Venous 8.8(L) 13.2 - 16.6 g/dL 08/15/2023 12:06 PM CDT STMA O2Hb 97.9 94.0 - 98.0 % 08/15/2023 12:06 PM CDT STMA COHb 1.5 <3.0 % 08/15/2023 12:06 PM CDT STMA MetHb <1.0 <1.5 % 08/15/2023 12:06 PM CDT STMA CtO2 12.5(L) 18.0 - 21.0 vol % 08/15/2023 12:06 PM CDT STMA Blood (Blood, Arterial Line) 08/15/2023 11:56 AM CDT 08/15/2023 12:03 PM CDT Narrative Authorizing Provider Result Abdifatah Song M.D. LAB BLOOD NON ADD-O N [facility] [address] [place] [address], [facility] [address] [place] [address] * Potassium, Blood (08/15/2023 11:56 AM CDT) Only the most recent of2 resultswithin the time period is included. Potassium, B 4.3 3.6 - 5.2 mmol/L 08/15/2023 12:07 PM CDT [facility] Blood (Blood, Arterial Line) 08/15/2023 11:56 AM CDT 08/15/2023 12:03 PM CDT Narrative Authorizing Provider Result Abdifatah Song M.D. LAB BLOOD NON ADD-O N Performing Organization Address City/[facility]/ZIP Co de Phone Number [facility] [address] [place], [place] [address] [place] [address] [address] [place] [address] * (ABNORMAL) Glucose, Whole Blood (08/15/2023 11:56 AM CDT) Only the most recent of2 resultswithin the time period is included. Glucose 144(H) 70 - 140 mg/dL 08/15/2023 12:06 PM CDT STMA Blood (Blood, Arterial Line) 08/15/2023 11:56 AM CDT 08/15/2023 12:03 PM CDT Narrative Authorizing Provider Result Abdifatah Song M.D. LAB BLOOD ADD-ON [facility] [address] [place] [address], [facility] [address] [place] [address] * (ABNORMAL) Calcium, Ionized (08/15/2023 11:56 AM CDT) Only the most recent of2 resultswithin the time period is included. Calcium, Ionized, B 4.53(L) 4.65 - 5.30 mg/dL 08/15/2023 12:07 PM CDT STMA Blood (Blood, Arterial Line) 08/15/2023 11:56 AM CDT 08/15/2023 12:03 PM CDT Hayde Song M.D. LAB BLOOD NON ADD-O N Performing Organization Address City/[facility]/[place] [address], [facility] STMA [address] [address] * [place] Fluoro Less Than 1 Hour (08/15/2023 11:22 AM CDT) Narrative 152 HOS LOS RST - 08/15/2023 11:24 AM CDT This exam does not require a radiologist review or interpretation. Please refer to the patient's medical record on this date for clinical details. Boubacar Brock M.D. IMG FLUOROSCOPY PROC EDURES Performing Organization Address City/[facility]/ZIP Co de Phone Number 152 HOS LOS RST * WA ARTL CATH/CNULA MONITOR PERC, [place] US GUIDE VASC ACCESS, LDA ANE ARTERIAL LINE INSERTION, MC ANE INVASIVE CATH WITH ULTRASOUND (08/15/2023 9:51 AM CDT) Narrative Rae Gonzalez APRN, CRNA, DNAP - 08/15/2023 9:51 AM CDT Rae Gonzalez APRN, CRNA, DNAP ? 08/15/2023 ??9:52 AM Invasive Catheter [...] AIRWAY (08/15/2023 8:40 AM CDT) Narrative Rae Gonzalez APRN, CRNA, DNAP - 08/15/2023 8:40 AM CDT Rae Gonzalez APRN, CRNA DNAP ? 08/15/2023 ??9:48 AM Airway Date/Time: 08/15/2023 8:40 AM Performed by: Rae Gonzalez APRN, CRNA DNAP Authorized by: Hayde Song M.D. ?? Patient location during procedure: OR / Procedure Area PROCEDURE DETAILS: Mask difficulty assessment: not attempted Final airway type: video laryngoscope Laryngeal Manipulation: no ?? Final best view of glottic structures - Cormack/Lehane Score: grade 1 ETT location: oral VL device: glide scope [place] scope blade size: 4 Tube size: 7.5 [...] ?? Hayde Song M.D. ANESTHESIA ORDERABL ES * (ABNORMAL) Bacteria / Shirin Culture, Blood #1 (08/13/2023 7:35 PM CDT) Only the most recent of2 resultswithin the time period is included. Pathologist [facility] Bacteria/Cand jessica Culture, Blood ESCHERICHIA COLI Growth after 11 Hours (A) 08/16/2023 11:17 AM CDT DTL Comment: 3 of 3 Bottles, Susceptibilities performed on another specimen [id number] Blood (Blood, Peripheral Draw) 08/13/2023 7:35 PM CDT 08/13/2023 8:15 PM CDT Comment:Specimen Source Site : Blood Carlos Alberto Henson M.D. LAB MICROBIOLOGY - G ENERAL ORDERABLES Performing Organization Address City/[facility]/ZIP Co de Phone Number [facility] [address] [place] [address], [facility] DTL [facility] [address] [place] [address] * Type and Screen (with Reflex Antibody ID) (08/13/2023 7:35 PM CDT) Pathologist [facility] ABORh O Pos Not applicable 08/13/2023 7:58 PM CDT STRM Antibody Screen Negative Negative 08/13/2023 8:13 PM CDT STRM Type & Screen Expiration 08/16/2023 23:59 08/13/2023 7:58 PM CDT STRM Testing Location [place] DEFAULT 08/13/2023 7:39 PM CDT STRM Blood (Blood, Venous) 08/13/2023 7:35 PM CDT 08/13/2023 7:39 PM CDT Carlos Alberto Henson M.D. LAB BLOOD BANK TEST ORDERABLES Performing Organization Address City/[facility]/ZIP Co de Phone Number [facility] [address] [place] [address], [facility] STRM [facility] [address] [place] [address] * [place] Cystogram without IV Contrast (08/13/2023 6:34 PM CDT) Anatomical Region Laterality Modality Abdomen, Pelvis, Abdominal R ST LOS, Abdominal ARZ LOS, Abdominal FLA LOS N/A Computed Tomograp hy, Computed Tomography Impressions 08/13/2023 6:57 PM CDT Rupture of the anterior superior aspect of the urinary bladder with intraperitoneal leak immediately adjacent to the right double-J ureteral stent. Findings discussed with Carlos Alberto Henson M.D. at 1815 on 08/13/2023. Narrative 08/13/2023 6:57 PM CDT EXAM: ??CT CYSTOGRAM WITHOUT IV CONTRAST COMPARISON: ??Same day outside noncontrast CT abdomen pelvis. FINDINGS: ??Noncontrast imaging demonstrates small volume intraperitoneal free fluid and Tabares catheter within the bladder. Intravesicular contrast was then instilled by gravity infusion. This demonstrates a defect in the anterior superior aspect of the bladder with free spillage of contrast intraperitoneally. Of note, this is immediately adjacent to the distal end of the right double-J ureteral stent (series 16 image 35 and 36). Right ARTURO. Vascular calcifications. Small fat-containing abdominal hernia. Probable injection granulomas in the anterior abdominal wall. Procedure Note Killian Montenegro M.B.B.S., M.D. - 08/13/2023 EXAM: CT CYSTOGRAM WITHOUT IV CONTRAST COMPARISON: Same day outside noncontrast CT abdomen pelvis. FINDINGS: Noncontrast imaging demonstrates small volume intraperitonealfree fluid and Tabares catheter within the bladder. Intravesicular contrast was then instilled by gravity infusion. Thisdemonstrates a defect in the anterior superior aspect of the bladder withfree spillage of contrast intraperitoneally. Of note, this is immediatelyadjacent to the distal end of the right double-J ureteral stent (series 16 image 35 and 36). Right ARTURO. Vascular calcifications. Small fat-containing abdominal hernia.Probable injection granulomas in the anterior abdominal wall. IMPRESSION: Rupture of the anterior superior aspect of the urinary bladder withintraperitoneal leak immediately adjacent to the right double-J ureteralstent. Findings discussed with Carlos Alberto Henson M.D. at 1815 on 08/13/2023. Carlos Alberto Henson M.D. IMG CT PROCEDURES * (ABNORMAL) Hepatic Function Panel (08/13/2023 5:27 PM CDT) Bilirubin, Total, S 0.8 0.0 - 1.2 mg/dL 08/13/2023 6:12 PM CDT DTL Bilirubin, Direct, S 0.3 0.0 - 0.3 mg/dL 08/13/2023 6:12 PM CDT DTL Aspartate Aminotransferase (AST), S 21 8 - 48 U/L 08/13/2023 6:12 PM CDT DTL Alanine Aminotransferase (ALT), S 13 7 - 55 U/L 08/13/2023 6:12 PM CDT DTL Alkaline Phosphatase, S 43 40 - 129 U/L 08/13/2023 6:12 PM CDT DTL Albumin, S 3.3(L) 3.5 - 5.0 g/dL 08/13/2023 6:12 PM CDT DTL Protein, Total, S 5.6(L) 6.3 - 7.9 g/dL 08/13/2023 6:12 PM CDT DTL Blood (Blood, Venous) 08/13/2023 5:27 PM CDT 08/13/2023 5:58 PM CDT Carlos Alberto Henson M.D. LAB BLOOD ADD-ON [facility] [address] [place] [address], [facility] DTL [facility] [address] [place] [address] * Prothrombin Time (PT) (08/13/2023 5:27 PM CDT) Prothrombin Time, P 12.4 9.4 - 12.5 sec 08/13/2023 5:38 PM CDT STMA INR 1.1 0.9 - 1.1 08/13/2023 5:38 PM CDT STMA Comment: ----ADDITIONAL INFORMATION---- Standard intensity warfarin therapeutic range: 2.0 to 3.0 ?? High intensity warfarin therapeutic range: 2.5 to 3.5 Blood (Blood, Venous) 08/13/2023 5:27 PM CDT 08/13/2023 5:31 PM CDT Carlos Alberto Henson M.D. LAB BLOOD ADD-ON [facility] [address] [place] [address], [facility] [address] [place] [address] * Magnesium (08/13/2023 5:27 PM CDT) Magnesium, S 1.9 1.7 - 2.3 mg/dL 08/13/2023 6:12 PM CDT DTL Blood (Blood, Venous) 08/13/2023 5:27 PM CDT 08/13/2023 5:58 PM CDT Carlos Alberto Henson M.D. LAB BLOOD ADD-ON Performing Organization Address City/[facility]/ZIP Co de Phone Number [facility] [address] [place] [address], [facility] [address] [place] [address] * Osmolality, Urine (08/13/2023 5:07 PM CDT) Osmolality, U 351 150 - 1150 mOsm/kg 08/13/2023 7:46 PM CDT DTL Urine 08/13/2023 5:07 PM CDT 08/13/2023 5:45 PM CDT Carlos Alberto Henson M.D. LAB URINE ORDERABLES Performing Organization Address City/[facility]/ZIP Co de Phone Number [facility] [address] [place] [address], [facility] [address] [place] [address] * (ABNORMAL) Dipstick, Urine (08/13/2023 5:07 PM CDT) Hemoglobin, QL, U Large(A) Negative 08/13/2023 6:33 PM CDT DTL Leukocyte Esterase, U Large(A) Negative 08/13/2023 6:33 PM CDT DTL Nitrite, U Positive( A) Negative 08/13/2023 6:33 PM CDT DTL Ketone, U >=150(A) Negative mg/dL 08/13/2023 6:33 PM CDT DTL Glucose, U >=1000(A) Negative mg/dL 08/13/2023 6:33 PM CDT DTL Urine 08/13/2023 5:07 PM CDT 08/13/2023 5:45 PM CDT Carlos Alberto Henson M.D. LAB URINE ORDERABLES Performing Organization Address City/[facility]/ZIP Co de Phone Number [facility] [address] [place] [address], [facility] [address] [place] [address] * pH, Random, Urine (08/13/2023 5:07 PM CDT) pH, Random, U 7.0 4.5 - 8.0 08/13/2023 7:46 PM CDT DTL Urine 08/13/2023 5:07 PM CDT 08/13/2023 5:45 PM CDT Carlos Alberto Henson M.D. LAB URINE ORDERABLES [facility] [address] [place] [address], [facility] [address] [place] [address] * (ABNORMAL) Microscopic Manual (08/13/2023 5:07 PM CDT) Microscopy Abnormal 08/13/2023 7:57 PM CDT DTL RBC >100(A) <3 /hpf 08/13/2023 7:57 PM CDT DTL Dysmorphic RBC <25 <25 % 08/13/2023 7:57 PM CDT DTL WBC 51-100(A) /hpf 08/13/2023 7:57 PM CDT DTL Comment: ----REFERENCE VALUE---- <4 ??(Males) <11 (Females) Urine 08/13/2023 5:07 PM CDT 08/13/2023 5:45 PM CDT Carlos Alberto Henson M.D. LAB URINE ORDERABLES [facility] [address] [place] [address], [facility] [address] [place] [address] * (ABNORMAL) Bacterial Culture, Aerobic + Susceptibility, Urine (08/13/2023 5:07 PM CDT) Pathologist [facility] Urine Culture ESCHERICHIA COLI >100,000 cfu/mL (A) 08/15/2023 2:54 PM CDT DTL Urine (Urine, Midstream) 08/13/2023 5:07 PM CDT 08/13/2023 6:04 PM CDT Comment:Specimen Source Site : Urine Narrative Organism Antibiotic Method Susceptibility Escherichia coli Ampicillin SUSCEPTIBILITY, LAYO (MCG/ML) 8 mcg/mL: Susceptible Escherichia coli Meropenem SUSCEPTIBILITY, LAYO (MCG/ML) <=0.12 mcg/mL: Susceptible Escherichia coli Ertapenem SUSCEPTIBILITY, LAYO (MCG/ML) <=0.25 mcg/mL: Susceptible Escherichia coli Piperacillin + Tazobactam SUSCE PTIBILITY, LAYO (MCG/ML) <=8/4 mcg/mL: Susceptible Escherichia coli Ciprofloxacin SUSCEPTIBILITY, LAYO (MCG/ML) <=0.25 mcg/mL: Susceptible Escherichia coli Levofloxacin SUSCEPTIBILITY, LAYO (MCG/ML) <=0.5 mcg/mL: Susceptible Escherichia coli Cefazolin SUSCEPTIBILITY, LAYO (MCG/ML) <=2 mcg/mL: Susceptible Escherichia coli Ceftriaxone SUSCEPTIBILITY, LAYO (MCG/ML) <=1 mcg/mL: Susceptible Escherichia coli Ceftazidime SUSCEPTIBILITY, LAYO (MCG/ML) <=4 mcg/mL: Susceptible Escherichia coli Cefepime SUSCEPTIBILITY, LAYO (MCG/ML) <=2 mcg/mL: Susceptible Escherichia coli Cefazolin (Uncomplic ated UTI) SUSCEPTIBILITY, LAYO (MCG/ML) <=2 mcg/mL: Susceptible Comment: The interpretation applies to uncomplicated urinary tract infections only. It also applies to these oral cephalosporins: cefuroxime, cephalexin, and cefprozil. Escherichia coli Cefdinir SUSCEPTIBILITY, LAYO (MCG/ML) <=1 mcg/mL: Susceptible Escherichia coli Amikacin SUSCEPTIBILITY, LAYO (MCG/ML) <=4 mcg/mL: Susceptible Escherichia coli Gentamicin SUSCEPTIBILITY, LAYO (MCG/ML) <=1 mcg/mL: Susceptible Escherichia coli Tobramycin SUSCEPTIBILITY, LAYO (MCG/ML) <=1 mcg/mL: Susceptible Escherichia coli Aztreonam SUSCEPTIBILITY, LAYO (MCG/ML) <=4 mcg/mL: Susceptible Escherichia coli Trimethoprim + Sulfamethoxazole SUSCEPTIBILITY, LAYO (MCG/ML) <=0.5/9.5 mcg/mL: Susceptible Escherichia coli Nitrofurantoin SUSCEPTIBILITY, LAYO (MCG/ML) <=32 mcg/mL: Susceptible Escherichia coli Fosfomycin SUSCEPTIBILITY, LAYO (MCG/ML) <=64 mcg/mL: Susceptible Carlos Alberto Henson M.D. LAB [facility]CROBIOLOGY - [facility] ORDERABLES [address] [address], [facility] [place] [address] [place] [address] * (ABNORMAL) Urinalysis, with Microscopic: Urine, Midstream (08/13/2023 5:07 PM CDT) Source Urine, Urine, Midstream 08/13/2023 5:44 PM CDT DTL Color, U Red(A) 08/13/2023 5:45 PM CDT DTL Clarity, U Cloudy(A) 08/13/2023 5:45 PM CDT DTL Consistency, U Clots Present(A) 08/13/2023 5:45 PM CDT DTL Protein, U 3393(H) <26 mg/dL 08/13/2023 8:50 PM CDT DTL Protein/Osmol ality 96.67(H) <0.42 ratio 08/13/2023 8:50 PM CDT DTL Predicted 24 [place] Protein[place] U [address](H) <229 mg/24 h 08/13/2023 8:50 PM CDT DTL Predicted Range 80380-561538 mg/24 h 08/13/2023 8:50 PM CDT DTL Comment Micro done on <2.5 mL 08/13/2023 7:55 PM CDT DTL Urine (Urine, Midstream) 08/13/2023 5:07 PM CDT 08/13/2023 5:44 PM CDT Carlos Alberto Henson M.D. LAB URINE ORDERABLES [facility] [address] [place] [address], [facility] [address] [place] [address] * Interpretation of Outside CT Abdomen and or Pelvis (08/13/2023 4:46 PM CDT) Anatomical Region Laterality Modality Abdomen, Pelvis, Abdominal R ST LOS, Abdominal ARZ LOS, Abdominal FLA LOS, Other N/A Computed Tomography Impressions 08/13/2023 8:36 PM CDT 1. ?? Since prior examination interval placement of a right nephroureteral stent. There is improved but persistent moderate pelvocaliectasis with decompressed right ureter. Progressed right renal atrophy. 2. ??Layering high attenuation debris in the bladder consistent with blood products. Intravesicular air locules most likely postinstrumentation. 3. ??New venous collaterals extending from bilateral common femoral veins. Further evaluation is limited due to the absence of IV contrast. This may be related to chronic occlusive/thrombotic disease that is not well seen on today's exam. 4. ??New sclerotic lesions within the pelvis. These are technically indeterminate, but given the patient's history of prostatic cancer these are concerning for metastatic disease. Narrative 08/13/2023 8:36 PM CDT EXAM: ??INTERPRETATION OF OUTSIDE CT ABDOMEN AND OR PELVIS noncontrast CT of the abdomen and pelvis from outside hospital August 13, 2023 COMPARISON: ??CT abdomen and pelvis urogram February 29, 2020 FINDINGS: ??Diffuse right renal atrophy. This is progressed since 2019. Since 2019, interval placement of a right nephro ureteral stent. There is moderate right pelvocaliectasis that is also improved since 2019. The ureter is decompressed. Bilateral perinephric stranding is similar to prior. Slightly increased prominence of the left extrarenal pelvis and ureter. Tabares catheter in place. Hyperattenuating debris layering within the bladder likely related to blood products given the patient's clinical history. Intravesicular air locules likely postinstrumentation. Normal noncontrast appearance of the liver, gallbladder, spleen, adrenals. Fatty atrophy of the pancreas. Colonic diverticulosis. No evidence of diverticulitis. Normal caliber colon and small bowel. Vascular calcifications. Hypoattenuation of the blood pool consistent with anemia. Venous collaterals extending from bilateral common femoral veins to the anterior subcutaneous tissue (near series 2/image 153). These were not seen on prior exam, or outside hospital radiation oncology treatment planning CT March 21, 2022. No intra-abdominal lymphadenopathy. Right total hip arthroplasty. No evidence of hardware failure or loosening. Degenerative changes of the sacroiliac joints, left hip, and thoracolumbar spine. Indeterminate peripherally sclerotic lesion along the anterior aspect of S1 (2/107). This is new since 2019. Additional new sclerotic lesion seen along the left lateral sacrum (2/107). Lung bases are clear. Procedure Note Killian Montenegro M.B.B.SJonah, M.D. - 08/13/2023 EXAM: INTERPRETATION OF OUTSIDE CT ABDOMEN AND OR PELVIS noncontrast CTof the abdomen and pelvis from outside hospital August 13, 2023 COMPARISON: CT abdomen and pelvis urogram February 29, 2020 FINDINGS: Diffuse right renal atrophy. This is progressed since 2019.Since 2019, interval placement of a right nephro ureteral stent. There ismoderate right pelvocaliectasis that is also improved since 2019. Theureter is decompressed. Bilateral perinephric stranding is similar to prior. Slightly increased prominenceof the left extrarenal pelvis and ureter. Tabares catheter in place.Hyperattenuating debris layering within the bladder likely related toblood products given the patient's clinical history. Intravesicular air locules likely postinstrumentation. Normal noncontrast appearance of the liver, gallbladder, spleen, adrenals.Fatty atrophy of the pancreas. Colonic diverticulosis. No evidence ofdiverticulitis. Normal caliber colon and small bowel. Vascular calcifications. Hypoattenuation of the blood pool consistent withanemia. Venous collaterals extending from bilateral common femoral veinsto the anterior subcutaneous tissue (near series 2/image 153). These werenot seen on prior exam, or outside hospital radiation oncology treatment planning CT March. No intra-abdominal lymphadenopathy. Right total hip arthroplasty. No evidence of hardware failure orloosening. Degenerative changes of the sacroiliac joints, left hip, andthoracolumbar spine. Indeterminate peripherally sclerotic lesion along theanterior aspect of S1 (2/107). This is new since 2019. Additional new sclerotic lesion seen along the left lateralsacrum (2/107). Lung bases are clear. IMPRESSION: 1. Since prior examination interval placement of a right nephroureteralstent. There is improved but persistent moderate pelvocaliectasis withdecompressed right ureter. Progressed right renal atrophy. 2. Layering high attenuation debris in the bladder consistent with bloodproducts. Intravesicular air locules most likely postinstrumentation. 3. New venous collaterals extending from bilateral common femoral veins.Further evaluation is limited due to the absence of IV contrast. This maybe related to chronic occlusive/thrombotic disease that is not well seenon today's exam. 4. New sclerotic lesions within the pelvis. These are technicallyindeterminate, but given the patient's history of prostatic cancer theseare concerning for metastatic disease. Carlos Alberto CHOUDHARY CT PROCEDURES * CT ABDOMEN PELVIS WO CON-Outside CT Body (08/13/2023 4:35 AM CDT) Narrative [facility] - 08/13/2023 12:29 PM CDT This order has been created and auto-finalized to support the import of outside images. If available, original interpretation can be found on the Media Tab in Chart Review, in Document Viewer, or as an image in QREADS. If a re-interpretation or overread is required please follow defined workflow. ?? 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
--- OUTSIDE RECORDS SUMMARY | 2023-08-18 05:14 | XMS_ITS ---
Author Name Unknown Organization [facility] Address [address] [place] [address] Care Team Providers Care Freelance Writer Name Role Phone Elsewhere, Pcp Primary Care Provider Unavailabl e Active Problems Problem Noted Date Diagnosed Date Hematuria 08/13/2023 Lymphedema 03/21/2020 Primary Malignant Neoplasm Of Prostate 0 Cancer Staging:Clinical stage from 03/03/2020:Stage IVB(cT4, cN1, pM1b, PSA: 161.9) - Signed by Tereso Frazier M.D. on 03/21/2020 Current Oncology Plans No current plan information found. Past Plans No past plan information found. Radiation Treatments * Plan Last Treated On Elapsed Days Fractions Treated Prescribed Fraction Dose Prescribed Total Dose F1 prost, LNs 04/28/2020 32 20 of 20 300 cGy 6,000 cGy Reference Point Last Treated On Elapsed Days Session Dose Total Dose [id number] 04/28/2020 32 300 cGy 6,000 cGy Lifetime Dose Tracking * Chemical Lifetime Dose Automatic Entry Manual Entr y Radiation 1.1 mGy 1.1 mGy 0 mGy Fluoro Time 0.01 minutes 0.01 minutes 0 minutes DAP (uGy-m2) 24.38 uGy-m2 24.38 uGy-m2 0 uGy-m2
--- OUTSIDE RECORDS SUMMARY | 2023-08-18 05:14 | XMS_ITS | Referral Summary ---
Author Name Unknown Organization [facility] Address [address] [place] [address] Care Team Providers Care City Recorder Name Role Phone Cesar Mccollum Primary Care Provider [phone] Allergies No known active allergies Medications Medication [...] on file Medical Devices Implanted Type Area Signal Wirer Device Identifier Shelf Expiration Date Model / Serial / Lot Stent Ureteral Polaris Ultra [id number] - [id number] Implanted:Qty : 1 on 02/08/2022 by Nicola Ware MD at [facility] Stent Right: Ureter [employer] [id number] 10/08/2024 [id number] Explanted Type Area Signal Wirer Device Identifier Shelf Expiration Date Model / Serial / Lot Stent Came Out Of The Right Ureter Explanted:Qty: 1 on 02/08/2022 by Nicola Ware MD at [facility] Right: Urethra Advance Directives For more information, please contact: [phone] Documents on File Type Date Recorded Patient Steam Box Tender Expl anation Advance Directives and Living Will 02/17/2022 Health Care Directiv e 05/15/2021 Healthcare Agents on File Name Relationship Healthcare Agent Relationship Communication Mindy Waterman Daughter [employer] Alterna te Health Care Agent Meera Vega Spouse Health Care Agent [id number] (Home) Favio Vega Son Co-[employer] Altern ate Health Care Agent Tereso Vega Son [employer] Alterna te Health Care Agent Care Teams City Recorder Relationship Specialty Start Date End Date Cesar Mccollum [address] [place] [address] PCP - General Family Medicine 11/22/22
--- OUTSIDE RECORDS SUMMARY | 2023-08-18 05:14 | XMS_ITS | Clinical Summary ---
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 For routine questions regarding patient records, call [phone] during business hours, M-F 8:00 AM - 5:00 PM Central Time. Record requests for emergency care only can be directed to [phone] at any time.[facility] Allergies No known active allergies Medications [...] Signed by Tereso Frazier M.D. on 03/21/2020 Encounters Date Type Department Care Team Description 08/15/2023 8:30 AM CDT Anesthesia Event [facility] OR [address] [place] [phone] Hayde Song M.D. 08/15/2023 7:55 AM CDT - 08/15/2023 11:23 AM CDT Surgery [facility] [address] [place] [phone] Boubacar Brock M.D. Palliative EXPLORATORY LAPAROTOMY, CYSTOTOMY CLOSURE, RIGHT URETERAL STENT EXCHANGE 08/13/2023 4:35 PM CDT Ancillary Procedure Department of Radiology in [place], [place] [address] [place] [address] Carlos Alberto Henson M.D. 08/13/2023 3:42 PM CDT - Present Hospital [facility], Sixth Floor [address] [place] [phone] Darnell Garcia M.D. Chow, George K, M.D. Decline Functional Status [R53.81] (Primary Dx) 08/13/2023 Intake [facility] from Last 3 Months Social History Tobacco Use Types Packs/Day Years Used Date Smoking Tobacco: Never Smokeless Tobacco: Never Tobacco Cessation:Counseling Given: Not Answered [facility] Utilities Answer Date Recorded In the [...] your living situation today? I have a [facility] place to live 08/13/2023 Sex and Gender [...] 08/13/2023 7:00 PM CDT Plan of Treatment Health Maintenance Due Date Last Done Comments Zoster Vaccines (1 of 2) 1989 Depression Screening (Annual PHQ-2) 04/11/2023 Fall Risk Screen (Annual) 04/11/2023 DTaP,Tdap,and Td Vaccines (2 - Td or Tdap) 09/07/2026 09/07/2016 Influenza Vaccine Completed 03/08/2023, 01/28/2022 COVID-19 Vaccine Completed 07/21/2023, , 09/13/2022, Additional history exists Pneumococcal vaccine (65+ years) Completed 07/21/19 24 Medical Devices Implanted Type Area Lining Cementer Device Identifier Shelf Expiration Date Model / Serial / Lot Clp Hrzn Ti 6 Clp Lg Orng - [id number] Implanted:Qt y: 1 on 08/15/2023 by Boubacar Brock M.D. at [facility] Hardware e.g. pins/screws /rods Abdomen [employer]ob[employer] [id number] 02/29/2028 [id number] / / [id number] Clp Hrzn Ti 6 Clp Lg Orng - [id number] Implanted:Qt y: 1 on 08/15/2023 by Bouabcar Brock M.D. at [facility] Hardware e.g. pins/screws /rods Abdomen [employer] [id number] 02/29/2028 [id number] / / [id number] Clp Hrzn Ti 6 Clp Md Monty - [id number] Implanted:Qt y: 1 on 08/15/2023 by Boubacar Brock M.D. at [facility] Hardware e.g. pins/screws /rods Abdomen [employer] [id number] 03/13/2028 [id number] / / [id number] Clp Hrzn Ti 6 Clp Monty - [id number] Implanted:Qt y: 1 on 08/15/2023 by Boubacar Brock M.D. at [facility] Hardware e.g. pins/screws /rods Abdomen [employer] [id number] 03/21/2028 [id number] / / [id number] Stnt Uret Inl 6fx24 - [id number] Implanted:Qt y: 1 on 08/15/2023 by Jakob De Paz M.D. at [facility] Ureteral Stent N/A: Ureter [employer].Bard [id number] 11/18/2027 [id number] / / [id number] Procedures The patient is currently admitted. The information in this section might not be complete until the patient is discharged. Procedure Name Priority Date/Time Associated Diagnosis Comments ACTIVATED PARTIAL THROMBOPLASTIN TIME (APTT), P Timed 08/17/2023 11:04 PM CDT US LOWER EXTREMITY VEINS BILATERAL RAD - Routine (most inpatients and all outpatients) 08/17/2023 6:58 PM CDT Procedure Note - Senthil Canales M.D. / Radiologist, [facility] - 08/17/2023 6:58 PM CDTThis note is [...] thrombosis and management can be found on [email or web address] site. [email or web address] Findings discussed with Tayler Greenwood MD ([id number]) on 08/17/2023 7:11 PM. IMPRESSION: 1. Aging, [...] ABG W/COOX STAT 08/15/2023 10:28 AM CDT ANE INVASIVE CATH WITH ULTRASOUND Routine 08/15/2023 9:51 AM CDT LDA ANE ARTERIAL LINE INSERTION Routine 08/15/2023 9:51 AM CDT OH US GUIDE VASC ACCESS Routine 08/15/2023 9:51 AM CDT OH ARTL CATH/CNULA MONITOR PERC Routine 08/15/2023 9:51 [...] CDT Boubacar Brock M.D. LAB BLOOD ADD-ON [facility] [address] [place] [address], [facility] [address] [place] [address] * ECG 12 Lead (08/16/2023 9:43 PM CDT) Only the most recent of2 resultswithin the time period is included. Ventricular Rate ECG/Min 134 BPM MUSE OH Interval 136 ms MUSE QRSD Interval 76 ms MUSE QT Interval 298 ms MUSE QTC Interval 445 ms MUSE P [place] 29 degrees MUSE R [place] -6 degrees MUSE T Wave [place] 21 degrees MUSE 08/16/2023 9:43 PM CDT [...] BETTY Shaw Geneva Azar M.D. ECG ORDERABLES MUSE NA * (ABNORMAL) CBC without Differential [...] CDT Geneva Azar M.D. LAB BLOOD ADD-ON [facility] [address] [place] [address], [facility] DTL [facility] [address] [place] [address] * (ABNORMAL) Basic Metabolic Panel (08/16/2023 9:40 PM CDT) Only the most recent of5 resultswithin the time period is included. Pathologist [facility] [place] Potassium, S 3.9 3.6 - 5.2 mmol/L [...] CDT Geneva Azar M.D. [place] [address], [facility] [address] [place] [address] * Transfuse Red Blood Cells : (08/16/2023 [...] Carlos Alberto Henson M.D. LAB BLOOD ADD-ON [facility] [address] [place] [address], [facility] DTL [facility] [address] [place] [address] DHPM [facility] [address] [place] [address] * DX Abdomen 1 View (08/15/2023 1:19 [...] EXAM: ??DX ABDOMEN 1 VIEW Procedure Note Barrington Warner M.D. - 08/15/2023 EXAM: DX ABDOMEN 1 [...] - 2.2 mmol/L 08/15/2023 12:06 PM [facility]T [facility] (Blood, Venous) 08/15/2023 11:56 AM CDT 08/15/2023 12:03 PM CDT Hayde Song M.D. LAB BLOOD NON ADD-O N [facility] [address] [place] [address], [facility] [address] [place] [address] * Patient Status (08/15/2023 11:56 AM CDT) Only the most recent of2 resultswithin the time period is included. Temperature 36.2 37.0 deg C 08/15/2023 12:04 PM CDT STMA Blood 08/15/2023 11:5 6 AM CDT 08/15/2023 12:03 PM CDT Rae Gonzalez APRN, CRNA, DNAP LAB BLOO D NON ADD-ON Performing Organization Address [facility]/ZIP Co de Phone Number [facility] [address] [place] [address], [facility] [address] [place] [address] * Sodium, B (08/15/2023 11:56 AM CDT) Only the most recent of2 resultswithin the time period is included. Sodium, B 135 135 - 145 mmol/L 08/15/2023 12:06 PM CDT STMA Blood (Blood, Arterial Line) 08/15/2023 11:56 AM CDT 08/15/2023 12:03 PM CDT Hayde Song M.D. LAB BLOOD NON ADD-O N Performing Organization Address City/[facility]/ZIP Co de Phone Number [facility] [address] [place] [address], [facility] [address] [place] [address] * (ABNORMAL) Blood Gas with Coox, Arterial [...] BLOOD NON ADD-O N Performing Organization Address City/[facility] Co de Phone Number [facility] [address] [place] [address] * Potassium, Blood (08/15/2023 11:56 AM CDT) Only the most recent of2 resultswithin the time period is included. Potassium, B 4.3 3.6 - 5.2 mmol/L 08/15/2023 12:07 PM CDT [facility] Blood (Blood, Arterial Line) 08/15/2023 11:56 AM CDT 08/15/2023 12:03 PM CDT Hayde Song M.D. LAB BLOOD NON ADD-O N Performing Organization Address City/[facility]/ZIP Co de Phone Number [facility] [address] [place] [address] * (ABNORMAL) Glucose, Whole Blood (08/15/2023 11:56 AM CDT) Only the most recent of2 resultswithin the time period is included. Glucose 144(H) 70 - 140 mg/dL 08/15/2023 12:06 PM CDT STMA Blood (Blood, Arterial Line) 08/15/2023 11:56 AM CDT 08/15/2023 12:03 PM CDT Hayde Song M.D. LAB BLOOD ADD-ON Performing Organization Address [facility]/ZIP Co de Phone Number [facility] [address] [place] [address] * (ABNORMAL) Calcium, Ionized (08/15/2023 11:56 AM CDT) Only the most recent of2 resultswithin the time period is included. Calcium, Ionized, B 4.53(L) 4.65 - 5.30 mg/dL 08/15/2023 12:07 PM CDT STMA Blood (Blood, Arterial Line) 08/15/2023 11:56 AM CDT 08/15/2023 12:03 PM CDT Hayde Song M.D. LAB BLOOD NON ADD-O N Performing Organization Address [facility] Co de Phone Number [facility] [address] [place] [address], [address] [address] * [place] Fluoro Less Than 1 Hour (08/15/2023 11:22 AM CDT) Narrative 152 HOS LOS RST - 08/15/2023 11:24 AM CDT This exam does not require a radiologist review or interpretation. Please refer to the patient's medical record on this date for clinical details. Boubacar Brock M.D. IMG FLUOROSCOPY PROC EDURES 152 HOS LOS RST * OH ARTL CATH/CNULA MONITOR PERC, OH US GUIDE VASC ACCESS, LDA ANE ARTERIAL LINE INSERTION, MC ANE INVASIVE CATH WITH ULTRASOUND (08/15/2023 9:51 AM CDT) Narrative Rae Gonzalez APRN BRAND AMBASSADOR PROMOTIONAL MODEL, DNAP - 08/15/2023 9:51 AM CDT Rae [...] 08/15/2023 8:40 AM CDT Rae Gonzalez APRN, BRAND AMBASSADOR PROMOTIONAL MODEL, DNAP ? 08/15/2023 ??9:48 AM Airway Date/Time: 08/15/2023 8:40 AM Performed by: Rae Gonzalez APRN [employer]AND AMB[employer]OR PROMOTIONAL MODEL DNAP Authorized by: Hayde Song M.D. ?? Patient location during procedure: OR / Procedure Area PROCEDURE DETAILS: Mask difficulty assessment: not attempted Final airway type: video laryngoscope Laryngeal Manipulation: no ?? Final best view of glottic structures - Cormack/Lehane Score: grade 1 ETT location: oral VL device: glide scope [place] scope blade size: 4 Tube size: 7.5 [...] of2 resultswithin the time period is included. [facility] Bacteria/Cand jessica Culture, Blood ESCHERICHIA COLI Growth after 11 Hours (A) 08/16/2023 11:17 AM CDT DTL Comment: 3 of 3 Bottles, Susceptibilities performed on another specimen [id number] Blood (Blood, Peripheral Draw) 08/13/2023 7:35 PM CDT 08/13/2023 8:15 PM CDT Comment:Specimen Source Site : Blood Carlos Alberto Henson M.D. LAB MICROBIOLOGY - [facility] ORDERABLES [facility] [address] [place] [address], [facility] [address] [place] [address] * Type and Screen (with Reflex Antibody ID) (08/13/2023 7:35 PM CDT) Pathologist [facility] ABORh O Pos Not applicable 08/13/2023 7:58 PM CDT STRM Antibody Screen Negative Negative 08/13/2023 8:13 PM CDT STRM Type & Screen Expiration 08/16/2023 23:59 08/13/2023 7:58 PM CDT STRM Testing Location [place] DEFAULT 08/13/2023 7:39 PM CDT STRM Blood (Blood, Venous) 08/13/2023 7:35 PM CDT 08/13/2023 7:39 PM CDT Carlos Alberto Henson M.D. LAB BLOOD BANK TEST ORDERABLES [facility] [address] [place] [address], [facility] STRM [facility] [address] [place] [address] * CT Cystogram without IV Contrast (08/13/2023 [...] abdominal wall. Procedure Note Killian Montenegro M.B.B.S., [place] - 08/13/2023 EXAM: CT CYSTOGRAM WITHOUT IV [...] Carlos Alberto Henson M.D. LAB BLOOD ADD-ON [facility] [address] [place] [address], [facility] [address] [place] [address] * Prothrombin Time (PT) (08/13/2023 5:27 PM CDT) [facility] Prothrombin Time, P 12.4 9.4 - 12.5 sec 08/13/2023 5:38 PM CDT [facility] INR 1.1 0.9 - 1.1 08/13/2023 5:38 PM CDT [facility] Comment: ----ADDITIONAL INFORMATION---- Standard intensity warfarin therapeutic range: 2.0 to 3.0 ?? High intensity warfarin therapeutic range: 2.5 to 3.5 Blood (Blood, Venous) 08/13/2023 5:27 PM CDT 08/13/2023 5:31 PM CDT Carlos Alberto Henson M.D. LAB BLOOD ADD-ON [facility] [address] [place] [address], [facility] [address] [place] [address] * Magnesium (08/13/2023 5:27 PM CDT) [facility] Magnesium, S 1.9 1.7 - 2.3 mg/dL 08/13/2023 6:12 PM CDT [facility] Blood (Blood, Venous) 08/13/2023 5:27 PM CDT 08/13/2023 5:58 PM CDT Carlos Alberto Henson M.D. LAB BLOOD ADD-ON [facility] [address] [place] [address], [facility] [address] [place] [address] * Osmolality, Urine (08/13/2023 5:07 PM CDT) [facility] Osmolality, U 351 150 - 1150 mOsm/kg 08/13/2023 7:46 PM CDT DTL Urine 08/13/2023 5:07 PM CDT 08/13/2023 5:45 PM CDT Carlos Alberto Henson M.D. LAB URINE ORDERABLES Performing Organization Address City/[facility] Co de Phone Number [facility] [address] [place] [address], [facility] [address] [place] [address] * (ABNORMAL) Dipstick, Urine (08/13/2023 5:07 PM [...] M.D. LAB URINE ORDERABLES Performing Organization Address City/[facility]/ZIP Co de Phone Number [facility] [address] [place] [address], [facility] [address] [place] [address] * pH, Random, Urine (08/13/2023 5:07 PM CDT) pH, Random, U 7.0 4.5 - 8.0 08/13/2023 7:46 PM CDT DTL Urine 08/13/2023 5:07 PM CDT 08/13/2023 5:45 PM CDT Carlos Alberto Henson M.D. LAB URINE ORDERABLES Performing Organization Address [facility] Co de Phone Number [facility] [address] [place] [address], [facility] [address] [place] [address] * (ABNORMAL) Microscopic Manual (08/13/2023 5:07 PM [...] M.D. LAB URINE ORDERABLES Performing Organization Address City/[facility] Co de Phone Number [facility] [address] [place] [address], [facility] [address] [place] [address] * (ABNORMAL) Bacterial Culture, Aerobic + Susceptibility, Urine (08/13/2023 5:07 PM CDT) Urine Culture ESCHERICHIA COLI >100,000 cfu/mL (A) [...] Carlos Alberto Henson M.D. LAB MICROBIOLOGY - [facility] ORDERABLES [facility] [address] [place] [address], [place] [facility] [address] [place] [address] * (ABNORMAL) Urinalysis, with Microscopic: Urine, Midstream [...] CDT DTL Predicted 24 [place] [address](H) <229 mg/24 h 08/13/2023 8:50 PM CDT DTL Predicted Range [id number] mg/24 h 08/13/2023 8:50 PM CDT DTL Comment Micro done on <2.5 mL 08/13/2023 7:55 PM CDT DTL Urine (Urine, Midstream) 08/13/2023 5:07 PM CDT 08/13/2023 5:44 PM CDT Carlos Alberto Henson M.D. LAB URINE ORDERABLES [facility] [address] [place] [address], [facility] [address] [place] [address] * Interpretation of Outside CT Abdomen and [...] bases are clear. Procedure Note Killian Montenegro M.B.B.S., M.D. - 08/13/2023 EXAM: INTERPRETATION OF OUTSIDE [...] theseare concerning for metastatic disease. Carlos Alberto Henson M.D. IMG CT PROCEDURES * CT ABDOMEN PELVIS WO [...] Advance Directives For more information, please contact: [phone] * Full Code (Latest Code Status on File) Date Activated Date Inactivated Comments 08/13/2023 4:30 PM Question Answer Comments Full Code: Discussed Care Teams Bakery Worker Relationship Specialty Start Date End Date Elsewhere, Pcp PCP - General Internal Medicine 08/13/23
--- OUTSIDE RECORDS SUMMARY | 2023-08-18 05:14 | XMS_ITS ---
Author Name Unknown Organization [facility] Address [address] [place] [address] Care Team Providers Care [employer] Tin Roller Name Role Phone Unavailable Unavailable Unavailable Surgery Details Not on file Complications Check Surgery Details section. Procedure Estimated Blood Loss Check Surgery Details section. Procedure Findings Check Surgery Details section. Procedure Specimens Taken Check Surgery Details section.
--- OUTSIDE RECORDS SUMMARY | 2023-08-18 05:15 | XMS_ITS | Encounter Summary ---
Author Name Unknown Organization [facility] Address [address] [place] [address] Care Team Providers Care Pcu Rn Name Role Phone Elsewhere, Pcp Primary Care Provider Unavailabl e Encounter Details Date Type Department Care Team (Late st Contact Info) Description 08/15/2023 7:55 AM CDT - 08/15/2023 11:23 AM CDT Surgery [facility] MAIN OR [address] [place] [address] Boubacar Brock M.D. [address] [place] [address] Palliative EXPLORATORY LAPAROTOMY, CYSTOTOMY CLOSURE, RIGHT URETERAL STENT EXCHANGE Social History Tobacco Use Types Packs/Day Years Used Date Smoking Tobacco: Never Smokeless Tobacco: Never [facility] Utilities Answer Date Recorded In the past 12 months has [facility] for Good, gas, oil, or water Dianping threatened to shut off services in your [...] your living situation today? I have a [facility] place to live 08/13/2023 Sex and Gender Information Value Date Recorded Sex Assigned at Not on file Gender Identity Not on file Sexual Orientation Not on file documented as of this encounter Last Filed Vital Signs Vital Sign Reading Time Taken Comments Blood Pressure 147/74 08/15/2023 5:52 AM CDT Pulse 97 08/15/2023 5:52 AM CDT Temperature 37.2 ??C (99 ??F) 08/15/2023 5:52 AM CDT Respiratory Rate 16 08/15/2023 5:52 AM CDT Oxygen Saturation 96% 08/15/2023 5:52 AM CDT Inhaled Oxygen Concentration - - Weight 91.2 kg (201 lb 1 oz) 08/13/2023 7:00 PM CDT Height 180 cm (5' 10.87) 08/13/2023 7:00 PM CDT Body Mass Index 28.15 08/13/2023 7:00 PM CDT documented in this encounter Discharge Summaries * Carlos Alberto Henson M.D. - 08/14/2023 10:41 AM CDT CCM3 Transfer Note SUBJECTIVE Hospital Course Background: 83 y/o male PMHx of metastatic prostate cancer on Xtandi s/p radiation complicated by radiation cystitis and proctitis Prior to Admission Noticed recurrent rectal bleeding (a few days out of 2 weeks) described as clots enough to fill a large cup. On 08/09 noticed urinary obstructive symptoms, hematuria. Symptoms worsened until he felt completely obstructed and presented to [place] [facility] [facility] Attempted Jon insertion but bladder irrigation was unsuccessful on multiple attempts. Hung 1U pRBC's. Given some volume and transferred to [facility] ICU ICU Course Urology consulted and were able to replace Jon with Alcock catheter. Successful irrigation. However, because of abdominal pain and hours without successful irrigation, CT cystogram confirmed small bladder perforation. Was started on ceftriaxone. He also spiked positive blood cultures (E. Coli). He was maintained on ceftriaxone. Per accepting service recs, and concern for active urinary bleeding, was transfused 2U pRBC's prior to transfer. OBJECTIVE Temperature: [36.2 ??C-37.8 ??C] 36.2 ??C Heart Rate: [84-139] 90 Resp Rate: [14-49] 18 Blood Pressure: (84-191)/(56-149) 134/74 SpO2: [79 %-99 %] 95 % Pulse Rate: [37-139] 91 PHYSICAL EXAM - relatively unchanged ASSESSMENT / PLAN Mr. Vega 83 y/o male with metastatic prostate cancer since 2020 on form of ADT, radiation induced cystitis and proctitis that both seemed to recur in the past couple weeks causing rectal bleedingand hematuria; presented to ED for severe obstructive urinary symptoms and hematuria. Found to havebladder perforation in setting of aggressive bladder irrigation and is now bacteremic with GNB. On Ceftriaxone. Recs (see progress note for plan by systems): - cont ceftriaxone for E.Coli (susceptibilities pending) - scheduled cultures to be drawn tomorrow am to ensure clearance of high grade E. Coli bacteremia - monitor for rectal bleeding, if recurs, consult GI bleed - pending CBC at 4 PM (ordered 2U per accepting team) -- ensure adequate replacement - pt will bring Xtandi (metastatic prostate cancer) from home; should be okay to take once pharmacysigns off on it - Mirabegron switched out to solifenacin inpatient Carlos Alberto Henson M.D. PGY-1 CCM 3 documented in this encounter Progress Notes * Tayler Greenwood M.D., M.Ed. - 08/17/2023 7:13 PM CDT Paged by Radiology regarding this patient. Team had ordered a lower extremity DVT ultrasound earlier today. 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 He has on a low intensity heparin drip. He has an IVC filter in place. I have placed a consultation with Vascular Medicine for their assessment which I anticipate tomorrow 08/18/23 Patient will remainon heparin drip overnight, we will need to assess the risks/ benefits/ ideal timing of a higher intensity anticoagulant in the setting of his recent open bladder surgery. Tayler Greenwood MD, [facility] * Alia Ruelas Pharm.D., R.Ph., BCPS - 08/17/2023 6:08 PM CDT Heparin Indication: Deep Vein Thrombosis (DVT) and Pulmonary Embolism (PE) Goal aPTT range: 45 - 60 seconds Recent direct oral Factor Xa inhibitor use: Yes Last Factor Xa dose date/time: Eliquis 2.5 mg 08/16 at 0844 aPTT Results (Past Day) 08/17/2023 4:56 PM aPTT 29 Heparin Current heparin rate: 12 units/kg/hr No loading dose will be administered aPTT is not at goal. Dose will remain the same. Next aPTT level: 08/16 at 2300 Pedro Ruelas Pharm.D., R.Ph., BCPS * Paula Hernandez M.D. - 08/17/2023 3:00 PM CDT Discussed the patient's antiplatelet requirements with Cardiology. They were kind enough to review his chart. Their recommendation is that the patient remain on Plavix given his history of multivessel PCI. They are recommending that we restart Plavix as soon as it is safe to do so from a surgical standpoint, if any concern for postoperative bleeding after re-initiation we will reengage them. Nadiraalso recommended the patient follow up with his primary family caseworker at discharge we will which we will make sure he does. we appreciate their time in reviewing this case. * Chance Cassidy, PharmPerla., R.Ph. - 08/17/2023 11:37 AM CDT Images from the original note were not included. Admission Medication History Note Adherence issues: Unable to assess Medication list source: Pharmacy or dispense records Medication related information: Med hx completed by Irvin Franco Pharm.D., R.Ph. at 08/14/2023 10:22 AM Per LDM from 02/18/23 to present No refill hx for Enzalutamide Have had rivaroxaban 10 mg daily filled regularly, last refill 06/27/23 for 90 days supply. Unclear why rivaroxaban is not in the current med list. Marie Cassidy, R.Ph., Pharm.D. Prior to Admission Medications Med List Status: Pharmacy Complete Set By: Irvin Franco Pharm.D., R.Ph. at 08/14/2023 10:22 AM Taking? Last Dose Informant Start Date End Date LT amLODIPine (NORVASC) 10 mg tablet Unknown -- 01/11/20 -- Take 10 mg by mouth daily. cholecalciferol (Vitamin D3) 50 mcg (2,000 Unit) tablet -- -- -- -- Take 50 mcg by mouth daily. clopidogreL (PLAVIX) 75 mg tablet 08/12/2023 -- 12/27/19 -- TK 1 T PO QD coenzyme Q10 (CO Q-10) 200 mg capsule -- -- -- -- Take 200 mg by mouth daily. enzalutamide (XTANDI) 40 mg capsule -- -- -- -- Take 120 mg by mouth daily. Take with or without food at the same time each day. Swallow it whole. iron,carbonyl-vitamin C (VITRON-C) 65 mg iron- [address] tablet -- -- -- -- Take 65 mg of iron by mouth daily. Do not crush or chew. metoprolol succinate (TOPROL-XL) 50 mg 24 hr tablet 08/12/2023 -- 11/02/19 -- Take 50 mg by mouth daily. mirabegron (MYRBETRIQ) 50 mg 24 hr tablet -- -- -- -- Take 50 mg by mouth daily. nitroglycerin (NITROSTAT) 0.4 mg SL tablet Unknown -- 11/02/19 -- Place 0.4 mg under the tongue. rosuvastatin (CRESTOR) 40 mg tablet -- -- -- -- Take 40 mg by mouth daily. tamsulosin (FLOMAX) 0.4 mg 24 hr capsule Unknown -- 06/10/20 -- TAKE 1 CAPSULE(0.4 MG) BY MOUTH DAILY * Chance Cassidy, Pharm.D., R.Ph. - 08/17/2023 11:30 AM CDT Pharmacist Progress Note Reason for admission: 83 y/o M with who had cystoscopy with right ureteral stent exchange on 07/18/2023 presents to MICU on 08/12 with hematuria. 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 Last BM Date: 08/12/23 Plan NPO. NG tube to suction until return of bowel function ASSESSMENT / PLAN Hematuria s/p bladder repair, right ureteral stent exchange 08/14: Cystogram on 08/12 showing bladder rupture with intraperitoneal leak. New trospium 20 mg bid (in place of home mirabegron). Urine remains clear. CAD s/p stent, HTN: BP 150-160s/80s, P 100s. Resume home metoprolol XL 50 mg daily, crestor 40 mg daily. Holding plavix, CoQ10. Could consider resuming home amlodipine. Antiplatelet/anticoagulation: per svc's note, curbsided vasc med, resume anticoagulation w/ apixaban 2.5 mg bid (home rivaroxaban 10 mg daily). Vasc med feels pt longer needs plavix. E coli bacteremia, urinary source: Day 5 ceftriaxone 2 g daily. BC, UC grew nunez- S E coli. Metastatic prostate cancer: Will restart home enzalutamide today (own supply). Marie Cassidy, PharmJonahD., R.Ph. INPATIENT MED LIST: acetaminophen, 650 mg, oral, Q6H apixaban, 2.5 mg, oral, BID cefTRIAXone, 2 g, intravenous, Q24H enzalutamide, 120 mg, oral, Daily lidocaine, 1 patch, transdermal, Daily metoprolol succinate, 50 mg, oral, Daily rosuvastatin, 40 mg, oral, Daily tamsulosin, 0.4 mg, oral, Daily trospium, 20 mg, oral, BID before breakfast and dinner naloxone, 0.2 mg, intravenous, PRN ondansetron, 4 mg, intravenous, Q6H PRN oxyCODONE, 2.5 mg, oral, Q4H PRN OR oxyCODONE, 5 mg, oral, Q4H PRN Lactated Ringer's Lactated Ringer's * Lisa Seaman, O.T., [facility] - 08/17/2023 10:47 AM CDT Occupational Therapy [facility] Inpatient Treatment SUBJECTIVE Patient's Name: Kalen Vega Referring/Attending Provider: Boubacar Brock M.D. Reason for Referral: Occupational Therapy Evaluation and Treatment History of Present Illness: Kalen Vega is a 83 y.o. male who was admitted to [facility] in [place] on 08/13/2023 for Hematuria [R31.9]. Precautions Other Precautions: abdominal; fall risk; watch HR Pain Assessment: Pain not reported during session. Subjective Comments: Patient greeted in bed and agreeable to therapy session. Team Communication: The patient's status was discussed and coordination of care occurred with RN OBJECTIVE Vital Signs: Vitals taken during session: Pulse rate: 102-128 bpm Outcome Measures: [facility] Inpatient Short Form: Putting on and taking off regular lower body clothing?: A Little Putting on and taking off regular upper body clothing?: A Little Taking care of personal grooming such as brushing teeth?: None Bathing (including washing, rinsing, drying)?: A lot Toileting, which includes using toilet, bedpan, or urinal?: A Little Eating meals?: Total Daily Activities Raw Score (max 24): 16 Daily Activities Standardized Score: 35.96 Interpretation: Based on scoring guidelines using the raw score value: Those going to home had an average score at or above 18 Those going to facility had an average score at or below 17 Clinicians answer the [facility] Inpatient Short Form based on observed patient activity and/or clinical judgement (ie. patient can be scored without physically performing each activity) Cognition: No observable concerns with cognition at this time Will further assess and monitor as warranted Therapeutic Interventions: ACTIVITIES OF DAILY LIVING: TOILETING - Assist Level: Minimal Assist - Patient Location: Toilet - Activity: clothing management, pericare - Therapist Delivery: assessed, instructed, educated, assisted - Assist/Cues: verbal and manual for technique, assistance for thoroughness - Adaptive Equipment: Grab bars BED MOBILITY: SUPINE to SIT - Assist Level: Minimal Assist - Device: use of bed rail, head of bed elevated, sheet - Therapist Delivery: assessed, instructed, educated, assisted - Assist/Cues: verbal, tactile, and manual for log roll technique, proper hand placement, trunk support, assistance for thoroughness, increased time FUNCTIONAL TRANSFERS: SIT<>STAND - Assist Level: Minimal Assist - Equipment: front wheeled walker and gait belt - Surface: Bed, Chair, Toilet - Therapist Delivery: assessed, instructed, educated, assisted - Assist/Cues: verbal and manual for proper hand placement, anterior weight shift - # of reps: 4 TOILET TRANSFER - Assist Level: Contact Guard Assist, Minimal Assist - Equipment: front wheeled walker and gait belt - Approach: To and From, Ambulating - Surface: Toilet - Therapist Delivery: assessed, instructed, educated, assisted - Assist/Cues: verbal and manual for proper hand placement, anterior weight shift - Adaptive Equipment: Grab bars FUNCTIONAL MOBILITY: Mobility performed to practice household distances with contact guard assistance and front wheeled walker and gait belt Education/Training Provided: Provided education on role of occupational therapy in the acute setting. Collaborated with patient and/or family on goals and plan of care. Functional Transfers: - Provided instruction and cues during functional sit to/from stand transfers, including body alignment to surface, appropriate hand placement, and optimal placement of extremities to optimize safetyand technique. Education/Training Provided: Activity Recommendations During Hospitalization: Patient educated on importance of activity and mobility to improve pulmonary function/hygiene, activity tolerance, strength, and overall well-being while in the hospital setting. - Active engagement in daily self-care routine (oral cares, face washing, etc.) - Active engagement in leisure tasks as appropriate/safe (reading, music, games/cards, etc.){ - Maintain typical day/night routine and incorporate sleep hygiene strategies - Ambulate/transfer into chair 3-5x/day Patient was left in bedside chair at end of session with call light in reach, all needs met and questions answered. Assessment Discharge Therapy Needs - OT: Ongoing skilled occupational therapy Skilled therapy can include occupational therapy provided in home health, outpatient or post-acute facility. The location of these services is determined by patient's care team in partnership with patient/family. Level of Care Needed - OT: Assistance with toileting, Assistance with toilet/shower transfers, Assistance with showering/bathing, Assistance with dressing, Assistance with meal preparation, Assistance with transportation, Assistance with housekeeping, Assistance with shopping Clinical Impression: The patient is progressing well towards occupational therapy goals. He was highly motivated to workwith OT this date and was able to ambulate in hallway with contact guard assistance and front wheeled walker to progress house hold distance mobility. The patient continues to require assistance for toileting secondary to decreased balance, and safety with line management. The patient remains belowbaseline functioning and would benefit from continued skilled OT to maximize independence with selfcares. Plan OT Plan Comments: Next Session: dressing; standing grooming; toielting process. Functional Goals: OT Goal #1: The patient will demonstrate the ability to complete toileting including clothing management, leslee-cares and transfer with supervision/set up assistance to progress towards prior level offunction OT Goal #1 Status: Progressing OT Goal #2: The patient will complete grooming tasks standing at sink for 5 + minutes with set up assistance to progress towards independence with self cares prior to discharge. OT Goal #2 Status: Ongoing OT Goal #3: The patient will complete lower body dressing with AE and modified independence to progress independence with self cares prior to discharge. OT Goal #3 Status: Slowly progressing OT Goal #4: The patient will demonstrate/ verbalize understanding of DME/AE recommendations to maximize independence and home safety OT Goal #4 Status: Ongoing Progress: Progressing toward goals Rehab potential: Mr. Vega has good potential to achieve established occupational therapy goals within the time frame outlined below. OT Frequency: OT Amount: 1 visit per day OT Frequency: 5 times per week OT Inpatient Duration : Until goals are met or hospital discharge Requires Inpatient OT Follow-Up: Yes OT - Next Inpatient Appointment: 08/18/23 Plan: Continue with current plan Treatment interventions may include: Treatment Interventions: Therapeutic exercise, Therapeutic functional activity, Self-care/home management, Cognitive skills training Occupational Therapy Attestation Statement: Patient agrees with the plan of care and goals. Billing: Time Spent with Patient Therapeutic Interventions Home Management Training (min): 24 min Time Tracking Total Timed Units (min): 24 min Total Treatment Time (min): 24 min Lisa Seaman O.T., MOT * Paula Hernandez M.D. - 08/17/2023 6:02 AM CDT UROLOGY CHIEF SERVICE PROGRESS NOTE SUBJECTIVE Kalen Vega was seen by the team during morning rounds. Postop day 2 open bladder repair, right ureteral stent exchange. AVSS. Intermittent tachycardia yesterday, no symptoms. EKG 08/15 evening with sinus tachycardia. NG tube in place to suction, 400 cc out over last 24 hours. Patient is NPO. Not yet passing gas. Pain under adequate control on p.o. medicines. Denies suprapubic pain. Jon catheter in place draining clear pink urine. Eliquis 2.5 mg b.i.d. was started yesterday, urine has remained clear Incisional wound VAC holding suction. OBJECTIVE Vital signs: AV Physical Exam: General: No acute distress Neuro: Alert and oriented, no gross deficits. Cardiovascular: Regular rate. Pulmonary: Normal respiratory effort. Abdomen: Non-tender, non-distended. Wound VAC in place holding suction : Jon catheter in place draining clear pink urine I/O ([id number]): NG tube 200 cc Two hundred sixty-five cc serosanguineous from the drain Labs: Hemoglobin 8.8 from 8.1 Creatinine 1.38 from 1.5 to Cultures: Blood and urine cultures from 08/12 growing nunez susceptible E coli Repeat blood culture 08/14 negative ASSESSMENT AND PLAN: Mr. Vega is a pleasant 83 y.o. 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 He has on both Plavix and Xarelto last doses of each / On 08/11 developed worsening hematuria ultimately went into clot retention and was admitted locallyfor CBI. He was subsequently transferred to [facility] 08/12 for difficulty irrigating his catheter despite the above. Hand irrigation was performed to clear approximately 400 cc clot to restore catheter drainage. CT cystogram was obtained which identified a bladder dome intraperitoneal perforation, adjacent to the long right distal ureteral stent curl. Jon catheter is in the bladder lumen without significant residual clot. Status post open cystotomy closure and right ureteral stent exchange on 08/14. #Postop -Jon catheter clear yellow urine -incision closed with rayshawn given history of radiation, incisional wound VAC overlying -NG tube in place, planning for NPO until return of bowel function # E coli bacteremia -nunez susceptible, currently on ceftriaxone # antiplatelet/anticoagulation --history of DVT status post IVC filter, home Xarelto (holding since 08/11) -CAD status post cardiac stents (Plavix held since 08/11) -discussed with vascular Medicine marc 08/15 regarding ongoing anticoagulation/antiplatelet. Theyfelt he no longer requires Plavix. They felt appropriate Eliquis dose 2.5 b.i.d.. We started this 08/15 Comorbidities: --history of DVT status post IVC filter, home Xarelto (holding since 08/11) -CAD status post cardiac stents (Plavix held since 08/11) -hydronephrosis and atrophic right kidney managed with indwelling double-J stent (exchange at time of surgery 08/14) PLAN: Continue NG tube to suction until passing gas Continue Eliquis 2.5 b.i.d. Hospital Summary: Diet: NPO Activity: Ad kong DVT PPX: Ashley heparin GI PPX: Pantoprazole Bowel Regimen:N/A IVF: LR 75 Abx/Microbiology: Ceftriaxone Pain Control: Tylenol, oxycodone 08/18. Scheduled trospium Home Meds Resumed: Metoprolol, tamsulosin, rosuvastatin Held Home Meds: None Consults: None Paula Hernandez M.D. 08/17/2023 6:02 AM CDT Please page the Urology Chief Service with questions or concerns. Pager during business hours: [phone] Pager after hours: [phone] * Audi De Luna P.T., D.P.T. - 08/16/2023 3:05 PM CDT 08/16/23 [id number] Reason Therapy Missed Reason Therapy Missed Receiving other care Patient receiving blood products during morning attempt, with another provider in PM. Will re-attempt tomorrow or as able. Audi De Luna, PT, DPT * Paula Hernandez M.D. - 08/16/2023 6:02 AM CDT UROLOGY CHIEF SERVICE PROGRESS NOTE SUBJECTIVE Kalen Vega was seen by the team during morning rounds. Postop day 1 open bladder repair, right ureteral stent exchange. AVSS. NG tube in place to suction, 200 cc out since placement yesterday afternoon. Patient is NPO. Not yet passing gas. Pain under adequate control on p.o. medicines. Deniessuprapubic pain. Jon catheter in place draining clear pink urine, CBI on slow drip all night. Incisional wound VAC holding suction. OBJECTIVE Vital signs: AVSS Physical Exam: General: No acute distress Neuro: Alert and oriented, no gross deficits. Cardiovascular: Regular rate. Pulmonary: Normal respiratory effort. Abdomen: Non-tender, non-distended. Wound VAC in place holding suction : Jon catheter in place draining clear pink urine I/O ([id number]): NG tube 200 cc Two hundred sixty-five cc serosanguineous from the drain Labs: Hemoglobin 8.1 from 9 White count 13.7 from 13.5 Creatinine 1.52 from 1.47 Cultures: Blood and urine cultures from 08/12 growing nunez susceptible E coli ASSESSMENT AND PLAN: Mr. Vega is a pleasant 83 y.o. 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 He has on both Plavix and Xarelto last doses of each / On 08/11 developed worsening hematuria ultimately went into clot retention and was admitted locallyfor CBI. He was subsequently transferred to [facility] 08/12 for difficulty irrigating his catheter despite the above. Hand irrigation was performed to clear approximately 400 cc clot to restore catheter drainage. CT cystogram was obtained which identified a bladder dome intraperitoneal perforation, adjacent to the long right distal ureteral stent curl. Jon catheter is in the bladder lumen without significant residual clot. Status post open cystotomy closure and right ureteral stent exchange on 08/14. #Postop -Ojn catheter with light pink urine on slow drip CBI -incision closed with rayshawn given history of radiation, incisional wound VAC overlying -NG tube in place, planning for NPO until return of bowel function # E coli bacteremia -nunez susceptible, currently on ceftriaxone Comorbidities: -history of DVT status post IVC filter, home Xarelto (holding since 08/11) -CAD status post cardiac stents (Plavix held since 08/11) -hydronephrosis and atrophic right kidney managed with indwelling double-J stent (exchange at time of surgery 08/14) PLAN: Continue NG tube to suction until passing gas Anticipate we will stop CBI today We will discuss with Cardiology need for both Plavix and Xarelto Hospital Summary: Diet: NPO Activity: Ad kong DVT PPX: Ashley heparin GI PPX: Pantoprazole Bowel Regimen:N/A IVF: LR 75 Abx/Microbiology: Ceftriaxone Pain Control: Tylenol, oxycodone 08/18. Scheduled trospium Home Meds Resumed: Metoprolol, tamsulosin, rosuvastatin Held Home Meds: None Consults: None Signed by: Paula Hernandez M.D. 08/16/2023 6:02 AM CDT Please page the Urology Chief Service with questions or concerns. Pager during business hours: [phone] Pager after hours: [phone] * Paula Hernandez M.D. - 08/15/2023 9:09 AM CDT PROGRESS NOTE: No events. AFVSS. Pain controlled. No flatus. No further emesis overnight. Abdomen more distended than yesterday but remained soft, tender to deep palpation only, no rebound. Twenty-four Hungarian Alcock three-way catheter remains off CBI, draining clear dark red urine. UOP 1.0 L over last 24 hours. Creatinine 1.47 from 1.83, 2.3 on admission Hemoglobin 9.5 this morning appropriate response to 2 units yesterday Micro: Urine and blood cultures growing nunez sensitive E coli, on ceftriaxone. IMPRESSION: #1 Acute intraperitoneal bladder dome perforation 2/2 gross hematuria with clot retention in the setting of advanced prostate cancer status post pelvic radiation complicated by radiation proctitis and radiation cystitis #2 Acute blood loss anemia secondary to #1 #3 E. Coli bacteremia, suspected urinary source #4 History of DVT status post IVC filter, home Xarelto held since 08/11 #5 CAD s/p cardiac stents, Plavix held since 08/11 #6 Hydronephrosis in atrophic RIGHT kidney managed with indwelling JJ stent, last exchanged 07/21/2023 Mr. Kalen Vega is an pleasant 83-year-old gentleman with a urologic history of advanced prostate cancer with bone Mets on Xtandi as well as hydronephrosis in right atrophic kidney managed with indwelling stent managed by outside urologist. We as long-term anemia secondary to symptomatic radiation cystitis and radiation proctitis. On 08/11 developed worsening hematuria ultimately went into clot retention and was admitted locally for CBI. He was subsequently transferred to [facility] 08/12 for difficulty irrigating his catheter despite the above. Hand irrigation was performed to clear approximately 400 cc clot to restore catheter drainage. CT cystogram was obtained which identified a bladder dome intraperitoneal perforation, adjacent to the long right distal ureteral stent curl. Jno catheter is in the bladder lumen without significant residual clot. My team met with patient, his son and daughter in-law at bedside to review the above. At that time he was hemodynamically stable, abdominal exam reassuring, Jon catheter draining. Decision was made to observe him closely while holding his anticoagulation until safe for OR or if clinical status change. ASSESSMENT/PLAN: HD2. Remains AFVSS and clinically stable, continues to have abdominal distention, nausea or vomiting. Now that the patient has been off Plavix and Xarelto for 48 hours, plan to proceed to the operating room today for bladder closure. Family was updated at the bedside yesterday afternoon and this morning. I discussed with the patient and his family members specific risks of the surgery including infection, bleeding, damage to surrounding structures. I discussed risk of bowel injury. I discussed need for catheter after the procedure. I discussed that we would also plan to exchange his right-sided uret eral stent while we are in the operating room. Regarding the above named procedure, we discussed the risks, benefits, and alternatives, including the risks of bleeding, infection, injury to adjacent structures, failure of the procedure to producethe desired effect, and need for subsequent operations. The general risks associated with surgery and anesthesia including SD, stroke, and VTE were also discussed. Finally, I expalined that there arerare complications that were not specifically mentioned but that are possible as a consequence of this procedure. The patient expressed understanding and wishes to proceed. PLAN: - OR today for exploratory laparotomy, closure of cystotomy, exchange of right- sided ureteral stent. Site marking wrist band applied. Consent obtained - continue Jon to gravity -we will update family after the case The above was discussed with Dr. Brock, urology documentation consultant on-call who is in agreement with the lisa outlined. Electronically signed by: Paula Hernandez M.D. 08/15/23 9:09 AM CDT Urology chief * Irvin Franco Pharm.D., R.Ph. - 08/14/2023 12:16 PM CDT Pharmacist Progress Note Reason for admission: 83 y/o M with who had cystoscopy with right ureteral stent exchange on 07/18/2023 presents to MICU on 08/12 with hematuria. 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 Holding home metoprolol Renal: PATRICE, serum Cr 1.83, potassium 5.4 Hematuria, Resume home tamsulosin and VESIcare Heme: Holding home rivaroxaban for Hx of DVT Prophylaxis: Holding DVT PPX in setting of hematuria ASSESSMENT / PLAN Hematuria: S/p cystogram on 08/12 showing bladder rupture with intraperitoneal leak. No plan for CBI.Holding home rivaroxaban for Hx of DVT and clopidogrel for CAD s/p stent E coli bacteremia: HDS, continues on ceftriaxone 2 g daily Family to bring his home enzalutamide from [place] Irvin Franco PharmDayday, R.Ph. * Jakob De Paz M.D. - 08/14/2023 11:34 AM CDT PROGRESS NOTE: No events. AFVSS. Pain controlled. No flatus. Nauseous and had 2 episodes of emesis. Abdomen more distended than yesterday but remained soft, tender to deep palpation only, no rebound. Twenty-four Hungarian Alcock three-way catheter remains off CBI, draining clear dark red urine. UOP 1.3 L since admission, 300 cc since midnight. Creatinine 1.83, down from 2.31 at admission Hemoglobin 7.6, down from 10.0 on admission, planning to transfuse 2U given cardiac history IMPRESSION: #1 Acute intraperitoneal bladder dome perforation 2/2 gross hematuria with clot retention in the setting of advanced prostate cancer status post pelvic radiation complicated by radiation proctitis and radiation cystitis #2 Acute blood loss anemia secondary to #1 #3 E. Coli bacteremia, suspected urinary source #4 History of DVT status post IVC filter, home Xarelto held since 08/11 #5 CAD s/p cardiac stents, Plavix held since 08/11 #6 Hydronephrosis in atrophic RIGHT kidney managed with indwelling JJ stent, last exchanged 07/21/2023 Mr. Kalen Vega is an pleasant 83-year-old gentleman with a urologic history of advanced prostate cancer with bone Mets on Xtandi as well as hydronephrosis in right atrophic kidney managed with indwelling stent managed by outside urologist. We as long-term anemia secondary to symptomatic radiation cystitis and radiation proctitis. On 08/11 developed worsening hematuria ultimately went into clot retention and was admitted locally for CBI. He was subsequently transferred to [facility] 08/12 for difficulty irrigating his catheter despite the above. Hand irrigation was performed to clear approximately 400 cc clot to restore catheter drainage. CT cystogram was obtained which identified a bladder dome intraperitoneal perforation, adjacent to the long right distal ureteral stent curl. Jon catheter is in the bladder lumen without significant residual clot. My team met with patient, his son and daughter in-law at bedside to review the above. At that time he was hemodynamically stable, abdominal exam reassuring, Jon catheter draining. Decision was made to observe him closely while holding his anticoagulation until safe for OR or if clinical status change. Patient confirmed full code status. ASSESSMENT/PLAN: HD1. Remains AFVSS and clinically stable, however now with more abdominal distention and nausea vomiting, concerning for early ileus in the setting of peritoneal irritation from his bladder perforation. Ideally would like to delay OR until he has been off of his Plavix and Xarelto for at least 48 hours. We will tentatively plan for OR tomorrow for formal bladder closure. Ideally, we would hold the Plavix for 5 days however we have to weigh the risk of bleeding versus risk of waiting and holdinghis anticoagulation. Patient and family updated. They expressed understanding with the plan. All question concerns addressed. PLAN: - transfer to floor status - transfused 2U pRBC for Hgb 7.6 given cardiac risk factors. Transfusion goal >8 (likely hematuria in the setting of acute illness) - continue Jon to gravity. No CBI. Page service promptly if stopped draining - Diet: Clears, NPO if additional nausea vomiting. NPO midnight - PPX: SCDs, ambulation - Tentative plan for OR 5/6 for formal bladder closure, right ureteral stent exchange The above was discussed with Dr. Brock, urology documentation consultant on-call who is in agreement with the lisa outlined. Electronically signed by: Jakob De Paz M.D. 08/14/23 11:52 AM CDT Urology chief * Carlos Alberto Henson M.D. - 08/14/2023 7:49 AM CDT CCM3 Progress Note SUBJECTIVE Brief Summary: Mr. Vega 83 y/o male with metastatic prostate cancer since 2020 on form of ADT, radiation induced cystitis and proctitis that both seemed to recur in the past couple weeks causing rectal bleedingand hematuria; presented to ED for severe obstructive urinary symptoms and hematuria. Found to havebladder perforation in setting of aggressive bladder irrigation and is now bacteremic with GNB. Interval Events: - bladder perf on CT cystogram yesterday - cont on ceftriaxone for GNB - sinus tach resolved with fluids, restarting home metop and abx - doing well this morning, no acute complaints - hgb mild drop, will recheck in afternoon OBJECTIVE Temperature: [37 ??C-37.8 ??C] 37 ??C Heart Rate: [90-139] 92 Resp Rate: [14-49] 24 Blood Pressure: (84-191)/(56-149) 138/76 SpO2: [79 %-99 %] 95 % Pulse Rate: [37-139] 92 PHYSICAL EXAM General: Patient is no apparent distress., well-groomed, and sitting in bed. and laying in bed.. CV: Normal rate and rhythm with normal S1 and S2. No murmurs, rubs, or gallops. No jugular venous distension. Trace bilateral edema Lungs: Clear to auscultation bilaterally. No wheezes, crackles, or rales. Abdomen: Tender in all quadrants, worst suprapubic region. No rebound/guarding. Bowel sounds present. Not peritonitic Skin/MSK: Skin warm, dry, and well perfused. No rashes or other lesions. No swollen or erythematousjoints. Minor abrasion on nose Neuro: Alert and oriented to person, place, and time. No gross focal deficits. DIAGNOSTICS Interpretation of Outside CT Abdomen and or Pelvis Result Date: 08/13/2023 Impression: 1. Since prior examination interval placement of a right nephroureteral stent. There isimproved but persistent moderate pelvocaliectasis with decompressed right ureter. Progressed right renal atrophy. 2. Layering high attenuation debris in the bladder consistent with blood products. Intravesicular air locules most likely postinstrumentation. 3. New venous collaterals extending from bilateral common femoral veins. Further evaluation is limited due to the absence of IV contrast. Thismay be related to chronic occlusive/thrombotic disease that is not well seen on today's exam. 4. New sclerotic lesions within the pelvis. These are technically indeterminate, but given the patient's history of prostatic cancer these are concerning for metastatic disease. CT Cystogram without IV Contrast Result Date: 08/13/2023 Impression: Rupture of the anterior superior aspect of the urinary bladder with intraperitoneal leak immediately adjacent to the right double-J ureteral stent. Findings discussed with Carlos Alberto Henson M.D. at 1815 on 08/13/2023. ASSESSMENT / PLAN Mr. Vega 83 y/o male with metastatic prostate cancer since 2020 on form of ADT, radiation induced cystitis and proctitis that both seemed to recur in the past couple weeks causing rectal bleedingand hematuria; presented to ED for severe obstructive urinary symptoms and hematuria. Found to havebladder perforation in setting of aggressive bladder irrigation and is now bacteremic with GNB. On Ceftriaxone. Today's Plan: - urology: serial exams, no plan for operation at this point (conservative mgmt) - cont broad spectrum abx - transfer to floor PLAN BY SYSTEMS: NEUROLOGICAL: #Abdominal Pain Sedation: None Pain management: Tylenol prn for fevers and pain. CARDIOVASCULAR: MAP Goal: 65 Vasoactive meds: None ECG: sinus tachy -- resolved -- Diuresis: None -- Continue home metoprolol, hold amlodipine PULMONARY: Oxygen via NC to keep sats > 90% -- not requiring support currently RENAL/: #Bladder perforation #E coli bacteremia Urology on consult, appreciate recs 3-way Jon in,STOP CBI per urology Conservative mgmt (serial abdominal exams per urology) Cont holding Eliquis and Plavix in acute setting Cont ceftriaxone Monitor and replace electrolytes as needed. Avoid nephrotoxic medications. GASTROENTEROLOGY: Diet: NPO for now, can advance after CT cystogram r/o perf -- PPI not indicated Last Bowel Movement: not known ENDOCRINE: No acute concerns INFECTIOUS: #E Coli bacteremia Cultures: pending susceptibilities Abx: Cont ceftriaxone HEMATOLOGY: #Anemia, acute on chronic Anticoagulation/DVT prophylaxis: held home Xarelto and Plavix given acute concern of bleeding Low threshold to restart pending plan from urology, hx of recurrent DVT's, and stents placed 2017 Type and screen CBC q12h -- recheck in afternoon Transfuse Hgb < 7 ACCESS: PIV x2 Date 08/13/23 3-way Jon DISPO Code Status: Full Transfer to floor Family updated on 08/13/[address] Sylvester. Page [id number] Carlos Alberto Henson M.D. PGY-1 CCM 3 * Ethel Sylvester M.D., M.P.H. - 08/14/2023 5:39 AM CDT SUBJECTIVE 83-year-old man with metastatic prostate cancer presenting with gross hematuria. CT cystogram revealed bladder or rupture. Otherwise hemodynamically stable no acute events overnight. OBJECTIVE VITAL SIGNS I have reviewed the current vital sign data as applicable. PHYSICAL EXAM General: Alert, oriented HEENT: Mild pallor Respiratory: No wheezes Cardiac: Normal rate and rhythm Extremities: Non-edematous Neuro: No obvious deficits DIAGNOSTICS I have reviewed relevant laboratory, imaging, and other diagnostics as applicable. ASSESSMENT / PLAN #Sepsis, G- bacteremia #Recurrent gross hematuria #Acute bladder wall rupture #Metastatic prostate cancer #Radiation proctitis, possible cystitis #Sinus tachycardia #CAD with stent to left main 2016, on Plavix #Chronic kidney disease stage III #Right renal hydronephrosis s/p ureteral stent #Essential hypertension and hyperlipidemia #DVT of iliac vein 2019, on Xarelto Patient with locally advanced/metastatic prostate cancer s/p radiation therapy and right ureteral stent for hydronephrosis, here with gross hematuria in the setting of anticoagulation and antiplatelet therapy. He is afebrile, hemodynamically stable. Unfortunately, CT cystogram revealed rupture of the anterior superior aspect of the bladder wall. Daily ceftriaxone, Gram-negative bacteremia. Hemoglobin remains stable, target 7 for PRBC transfusion. No ICU requirements. Stable to transfer to general care. Associated attestation - Darnell Garcia M.D. - 08/14/2023 7:15 AM CDT I have reviewed pertinent data, examined the patient and discussed the plan of care with multi-professional CCM3 team - Urology follow up - Systems based plan of care as per CCM3. * Irvin Franco Pharm.D., R.Ph. - 08/13/2023 3:54 PM CDT Pharmacist Progress Note Reason for admission: 83 y/o M with who had cystoscopy with right ureteral stent exchange on 07/18/2023 presents to MICU on 08/12 with hematuria. 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 Started home metoprolol Renal: Acute requiring disease: Hematuria, plan for CBI. Resume home tamsulosin and VESIcare Heme: Holding home rivaroxaban for Hx of DVT Prophylaxis: Holding DVT PPX in setting of hematuria ASSESSMENT / PLAN Hematuria: Plan for CBI. Holding home rivaroxaban for Hx of DVT and clopidogrel for CAD s/p stent Irvin Franco Pharm.D., R.Ph. documented in this encounter H&P Notes * Irvin Franco Pharm.D., R.Ph. - 08/14/2023 10:23 AM CDT Images from the original note were not included. Admission Medication History Note Adherence issues: No concerns Medication list source: Family member and Pharmacy or dispense records Medication related information: med list verified with family member. Prior to Admission Medications Med List Status: Pharmacy Complete Set By: Irvin Franco Pharm.D., R.Ph. at 08/14/2023 10:22 AM Taking? Last Dose Informant Start Date End Date LT amLODIPine (NORVASC) 10 mg tablet Unknown -- 01/11/20 -- Take 10 mg by mouth. cholecalciferol (Vitamin D3) 50 mcg (2,000 Unit) tablet -- -- -- -- Take 50 mcg by mouth daily. clopidogreL (PLAVIX) 75 mg tablet 08/12/2023 -- 12/27/19 -- TK 1 T PO QD coenzyme Q10 (CO Q-10) 200 mg capsule -- -- -- -- Take 200 mg by mouth daily. enzalutamide (XTANDI) 40 mg capsule -- -- -- -- Take 120 mg by mouth daily. Take with or without food at the same time each day. Swallow it whole. iron,carbonyl-vitamin C (VITRON-C) 65 mg iron- [address] tablet -- -- -- -- Take 65 mg of iron by mouth daily. Do not crush or chew. metoprolol succinate (TOPROL-XL) 50 mg 24 hr tablet 08/12/2023 -- 11/02/19 -- Take 50 mg by mouth. mirabegron (MYRBETRIQ) 50 mg 24 hr tablet -- -- -- -- Take 50 mg by mouth daily. nitroglycerin (NITROSTAT) 0.4 mg SL tablet Unknown -- 11/02/19 -- Place 0.4 mg under the tongue. rosuvastatin (CRESTOR) 40 mg tablet -- -- -- -- Take 40 mg by mouth daily. tamsulosin (FLOMAX) 0.4 mg 24 hr capsule Unknown -- 06/10/20 -- TAKE 1 CAPSULE(0.4 MG) BY MOUTH DAILY * Ethel Sylvester M.D., M.P.H. - 08/13/2023 4:07 PM CDT SUBJECTIVE 83-year-old man with metastatic prostate cancer presenting with gross hematuria. He has had this intermittently over the years since his diagnosis. This is occurring on a background of chronic anticoagulation for history of DVT and antiplatelet therapy in the setting of severe CAD. He has been doing well lately after his a right ureteral stent replacement earlier in July. He noted hematuria and difficulty voiding 3 days ago which has gradually gotten worse, prompting ED visit this morning. OBJECTIVE VITAL SIGNS I have reviewed the current vital sign data as applicable to this admission. PHYSICAL EXAM General: Alert, oriented HEENT: Mild pallor Respiratory: No wheezes Cardiac: Sinus tachycardia Extremities: Non-edematous Neuro: No obvious deficits DIAGNOSTICS I have reviewed relevant laboratory, imaging, and other diagnostics as applicable to this admission. ASSESSMENT / PLAN #Recurrent gross hematuria #Metastatic prostate cancer #Radiation proctitis, possible cystitis #Sinus tachycardia #CAD with stent to left main 2016, on Plavix #Chronic kidney disease stage III #Right renal hydronephrosis s/p ureteral stent #Essential hypertension and hyperlipidemia #DVT of iliac vein 2019, on Xarelto Patient with locally advanced/metastatic prostate cancer s/p radiation therapy and right ureteral stent for hydronephrosis, presenting with gross hematuria in the setting of anticoagulation and antiplatelet therapy. He is afebrile, hemodynamically stable. He has sinus tachycardia but is also due for his metoprolol. We have contacted urology who have asked we place a 24 Hungarian 3-way urinary catheter pending evaluation. We will obtain blood and urine cultures but will hold off on initiating any antimicrobials given low suspicion for infectious process. He has only received 1 unit of PRBC, hemoglobin stable around 9; will continue to monitor hemoglobin Q 8-12 hours. Xarelto/Plavix held. We will hold off on administering any FFP or 4fPCC. Full code Rest per CCM 3. Associated attestation - Erika Rodriguez M.D. - 08/13/2023 5:23 PM CDT SUBJECTIVE I saw and examined Kalen Vega in the medical ICU. I reviewed the chart and discussed the casewith the critical care service. I agree with the history, physical examination, assessment, and plan as documented in the critical care note of today's date, with the following additions and exceptions as noted below. OBJECTIVE I examined the patient and reviewed the vital signs and relevant labs and imaging. ASSESSMENT / PLAN #1 Hematuria #2 Rectal bleeding secondary to radiation proctitis #3 Acute on chronic blood loss anemia #4 Tachycardia #5 Metastatic prostate cancer #6 CAD s/p PCI 2017 on plavix #7 History of DVT 2019 on Xarelto #8 Hydronephrosis s/p stent Briefly, Mr. Kalen Vega is a 83 y.o. male with past medical history remarkable for metastaticprostate cancer, prior DVT on anticoagulation with xarelto, CAD s/p PCI on plavix, radiation proctitis with recurrent rectal bleeding, hydronephrosis s/p stent and hematuria who is transferred from [facility] ED with 3 days of hematuria and recent history of rectal bleeding which has since resolved. In the outside ED, he received 1 unit PRBCs and crystalloid. Hemoglobin 8s. Here, he is tachycardic but normotensive. There are no infectious sign or symptoms and no signs of current GI bleeding. Plan for today is as follows: - Urology consult - Continuous bladder irrigation - Trend hemoglobin q 12, transfuse if < 7 - Hold plavix and xarelto for now - Resume home beta bekah Remainder of issues per CCS note from today. Critical care time 25 minutes. This is time spent at this critically ill patient's bedside activelyinvolved in patient care as well as the coordination of care and discussions with the patient's family. This does not include any procedural time which has been billed separately. * Carlos Alberto Henson M.D. - 08/13/2023 2:00 PM CDT CCM3 Admission Note SUBJECTIVE CHIEF COMPLAINT Kalen Vega is a 83 y.o. male who presents with hematuria. HISTORY OF PRESENT ILLNESS PMHx: CAD s/p stent on Plavix Metastatic prostate cancer on Enzalutaide (andorgen receptor signaling inhibitor) and ADT C/b rectal bleeding --> chronic anemia req frequent blood transfusions C/b radiation induced bladder injury --> hematuria DVT's recurrent on reduced dose Xarelto now on full dose Xarelto CKD (Bl Cr 1.4) BPH on tamsulosin and myrbetriq HTN on amlodipine and metoprolol At Home He mentions that using while rectal bleeding perspective for the past couple of months after his last EGD procedure. However, he noticed recurrent rectal bleeding for the past couple of weeks, he describes this as multiple large clots easily enough to fill a large cup occurring intermittently for total of a few days over the past couple of weeks. He has not noticed blood for the past couple of days. On 08/08/2023, he had a fall when taking out the garbage with minor abrasions. He had not seek medical attention thereafter. On 08/09, he noticed difficulty urinating feeling as though there was an obstruction to the outflow of urine around his penis. He was still able to urinate, though forcefully, and he noticed hematuria start on 08/10/2023. His obstructive symptoms worsened over the courseof the next few days, until he was fully obstructed leading him to present to local hospital in [place]. OSH Course: His hemoglobin was in the high aids when he arrived, he was given a unit of blood. Jon catheter was placed with difficulty, irrigation was attempted however because of the amount of clots, they were unsuccessful for several hours. He said he had 10/10 pain on presentation, but now has improved to5/10 pain. In route in the ambulance, he had stable vital signs besides sinus tachycardia to 140. He was started on a normal saline drip of 250 mL/hour. MICU3: He continues to endorse mild-moderate abdominal pain. He said the ambulance ride was quite painful but he feels better than he did when presenting to the ED this morning. He last took Plavix and Xarelto yesterday. He corroborates above story. Endorses being full code. Family (son and daughter in law) at room-side as well. REVIEW OF SYSTEMS Constitutional: negative CURRENT MEDICATIONS Medications Scheduled Medication Ordered Dose/Rate, Route, Frequency Last Action cefTRIAXone in dextrose (iso osm) IVPB 2 g (ROCEPHIN) 2 g, IV, Once Ordered lidocaine 5 % 1 patch (LIDODERM) 1 patch, TD, Daily Ordered metoprolol succinate 24 hr tablet 50 mg (TOPROL-XL) 50 mg, oral, Daily Given, 50 mg at 08/12 171 solifenacin tablet 5 mg (VESICARE) 5 mg, oral, Daily Ordered tamsulosin 24 hr capsule 0.4 mg (FLOMAX) 0.4 mg, oral, Daily Ordered Continuous Medication Ordered Dose/Rate, Route, Frequency Last Action NaCl 0.9 % irrigation solution 3,000 mL 3,000 mL, IR, Continuous New Bag, 3,000 mL at 08/12 1711 NaCl 0.9 % irrigation solution 3,000 mL 3,000 mL, IR, Continuous New Bag, 3,000 mL at 08/12 1720 ALLERGIES/ADVERSE REACTIONS Allergies as of 08/13/2023 (No Known Allergies) SYSTEMS REVIEW Pertinent items are noted in HPI; all other review of systems was negative. PAST MEDICAL/SURGICAL HISTORY No past medical history on file. SOCIAL HISTORY Social History Socioeconomic History Marital status: Tobacco Use Smoking status: Never Smokeless tobacco: Never Social Determinants of Health Food Insecurity: No Food Insecurity (02/16/2022) Received from [facility], [facility] Food Insecurity Worried About Running Out of Food in the Last Year: 1 Transportation Needs: No Transportation Needs (02/16/2022) Received from [facility], [facility], [facility] Transportation Needs Lack of Transportation (Medical): 1 Housing Stability: Low Risk (02/16/2022) Received from [facility], [facility], [facility] Housing Stability Unable to Pay for Housing in the Last Year: 1 FAMILY HISTORY No family history on file. Remainder of medication list, allergies, past medical/surgical history, social history and family history were reviewed in the chart and updated as appropriate. OBJECTIVE I have reviewed the current vital sign data as applicable to this admission. PHYSICAL EXAM General: Patient is no apparent distress., well-groomed, and sitting in bed. and laying in bed.. CV: Tachycardic rate and rhythm with normal S1 and S2. No murmurs, rubs, or gallops. No jugular venous distension. Trace to 1+ bilateral pitting edema. 2+ pulses bilaterally (radial). Lungs: Clear to auscultation bilaterally. No wheezes, crackles, or rales. Abdomen: Tender in all quadrants, worst suprapubic region. No rebound/guarding. Bowel sounds present. Skin/MSK: Skin warm, dry, and well perfused. No rashes or other lesions. No swollen or erythematousjoints. Minor abrasion on nose Neuro: Alert and oriented to person, place, and time. Cranial nerves 2-12 grossly intact. 5/5 strength in all extremities bilaterally. Sensation grossly intact. I have reviewed relevant laboratory, imaging, and other diagnostics as applicable to this admission. ASSESSMENT / PLAN Mr. 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 Bleeding likely 2/2 both radiation proctitis and cystitis (recurrent). Will discuss with urology regarding plan. 3-way jon in and pt on CBI. If rectal bleeding recurs, will discuss with GI bleed team. His Hgb seems to be close to his baseline and he did receive an additional 1U of pRBC's at outside facility. He is vitally stable albeit tachycardic which could be in setting of active bleed and/or reflex tachycardia from missed metoprolol succinate dose (didn't take any meds this morning). PLAN BY SYSTEMS: NEUROLOGICAL: #Abdominal Pain Sedation: None Pain management: Tylenol prn for fevers and pain. CARDIOVASCULAR: MAP Goal: 65 Vasoactive meds: None ECG: sinus tachy -- Diuresis: None -- Continue home metoprolol, hold amlodipine PULMONARY: Oxygen via NC to keep sats > 90% -- not requiring support currently RENAL/: Obtain UA, Ucx 3-way Jon in, CBI, urology consult Urgent CT cystogram w/o IV con -- to be done today ot rule out bladder perf 1 dose ceftriaxone per urology recs given bladder interventions today Monitor and replace electrolytes as needed. Avoid nephrotoxic medications. GASTROENTEROLOGY: Diet: NPO for now, can advance after CT cystogram r/o perf -- PPI not indicated Last Bowel Movement: not known ENDOCRINE: No acute concerns INFECTIOUS: Cultures: obtained, pending from admission Abx: 1 dose ceftriaxone, monitor for further signs of sepsis HEMATOLOGY: Anticoagulation/DVT prophylaxis: held home Xarelto and Plavix given acute concern of bleeding Low threshold to restart pending plan from urology, hx of recurrent DVT's, and stents placed 2017 Type and screen CBC q12h Transfuse Hgb < 7 ACCESS: PIV x2 Date 08/13/23 3-way Jon DISPO Code Status: Full ICU level of cares. Family updated on 08/13/[address] Sylvester and Dr. Rodriguez. Page [id number] [id number] Carlos Alberto Henson M.D. PGY-1 CCM 3 documented in this encounter Consult Notes * Matthieu Reynoso, SPT - 08/17/2023 3:09 PM CDT Physical Therapy Inpatient Evaluation/Treatment SUBJECTIVE Patient's Name: Kalen Vega Referring/Attending Provider: Boubacar Brock M.D. Reason for Referral: Physical Therapy Evaluate and Treat Pertinent Medical / Surgical History: Kalen Vega has no past medical history on file. Kalen Vega has a past surgical history that includes Exploratory Laparotomy (N/A, 08/15/2023); CYSTOSCOPY FLEXIBLE (N/A, 08/15/2023); and Application Wound Vac Abdomen (N/A, 08/15/2023). History of Present Illness: Kalen Vega is a 83 y.o. male who was admitted to [facility] in [place] on 08/13/2023 for Hematuria [R31.9]. Relevant Medical History: Kalen Vega is a 83 y.o. male who was admitted to [facility] in [place] on 08/13/2023 for Hematuria with cystotomy and right ureteral stent placed on 08/14. Past medical history is relevant for coronary artery disease with stent placement in 2022, metastaticprostate cancer with radiation induced bladder injury, multiple DVTs, CKD, BPH, HTN. Precautions Other Precautions: abdominal; fall risk; watch HR RST PT/OT Falls screen: Fall in the last 12 months: Yes Did you have an injury with the fall: No Are you fearful of falling: No Home Living and Equipment (taken by OT, confirmed by PT): Lives with: Spouse/Significant other, (Gavin (adult son)) Receives help from: No help from others and has home health for spouse who has [employer]. They started this past week. Type of Home: House Home Layout: One Level + basement Able to live on main level with bedroom/bathroom Laundry in basement Home Access: Stairs to enter: Number of steps: 2, Railing: unilateral handrail - drop down to living room 2 steps with bilateral hand rails Bathroom Accessibility: Accessible via walker Shower: Walk-in Shower Enclosure Type: Sliding glass door Bathroom Equipment: Grab bars in shower, Hand-held shower head, Shower chair with back, Non-skid mat Toilet: Comfort Toilet Toilet Equipment: None Assistive Device Owned: Front wheeled walker, Single point cane Adaptive Equipment Owned: Catering Administrative Assistant, Long Handled Shoe Horn Other DME Owned: Regular flat bed Prior Level of Function and Mobility: Functional Mobility: Independent Basic Activities of Daily Living: Independent Instrumental Activities of Daily Living: Required assistance from son for laundry and cooking Driving: Yes 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 Patient/Caregiver Goals: Return to home and Return to prior level of function Subjective Comments: Patient Nursing Family agreed to session. Patient found sitting in bedside chair at initiation of session. OBJECTIVE Vital Signs: Pre-Activity: Pulse Rate: 102 bpm Blood Pressure: 158/80 (100) mmHg O2: 96% Room air Post Activity: Pulse Rate: 108 bpm Blood Pressure: 180/92 (109) mmHg O2: 96% Room air Evaluation Assessments: Strength: Generalized weakness Range of Motion: Upper extremities within functional limits Lower extremities within functional limits Activity Tolerance: Endurance: Tolerates 10-20 minutes of activity Neuro/Integumentary Screen: Sensation: Intact to light touch in the dermatomal pattern to the bilateral lower extremities. Proprioception: Intact to the bilateral great toes. Integumentary: Bilateral heels well perfused and intact. Outcome Measures: [facility] Inpatient Short Form: -[facility] Basic Mobility (V.2) How much help from another person do you currently need???If the patient hasn't done an activity recently, how much help from another person do you think he/she would needif he/she tried? 1. Turning from your back to your side while in a flat bed without using bedrails?: A Little 2. Moving from lying on your back to sitting on the side of a flat bed without using bedrails?: A Little 3. Moving to and from a bed to a chair (including a wheelchair)?: A Little 4. Standing up from a chair using your arms (e.g., wheelchair, or bedside chair)?: A Little 5. To walk in hospital room?: A Little 6. Climbing 3-5 steps with a railing?: A Lot -[facility] Basic Mobility (V.2) Raw Score: 17 -[facility] Basic Mobility (V.2) Standardized Score: 39.67 Interpretation: Based on scoring guidelines using the raw score value: Those going to home had an average score at or above 18 Those going to facility had an average score at or below 17 Clinicians answer the [facility] Inpatient Short Form based on observed patient activity and/or clinical judgment (ie. patient can be scored without physically performing each activity) Therapeutic Interventions: SIT TO STAND: Assistance Level: Minimal Assistance of 1 Device: gait belt and front wheeled walker Surface: Chair Assistance/Cueing: tactile for Manual facilitation provided for force generation Delivery: instructed, assessed, and facilitated STAND TO SIT: Assistance Level: Modified Independent Device: gait belt and front wheeled walker Surface: Chair Assistance/Cueing: no cueing required for Delivery: assessed GAIT: Distance: 30 meters Assistance Level:Contact Guard Assistance of 1 Device: gait belt, front wheeled walker, and with assistance for lines and/or chair follow Quality: decreased gait speed, decreased heel strike, decreased step height, decreased step length,forward flexed posture, steady, step through Assistance/Cueing:verbal for Breathing Techniques, Placement of gait aid, Placement within the walker, Terminal hip extension, and Upright posture Delivery: instructed, assessed, and facilitated Comments: Patient exhibits generally good stability with FWW but requires standby assist for safetyas he demonstrates decreased step height and decreased endurance. Ambulation distance mainly limited by lower extremity fatigue and mild shortness of breath. Advised to take standing rest breaks withdeep breathing. Given cues for upright posture and keeping walker close to him. THERAPEUTIC EXERCISE: Seated Therapeutic Exercise: Side: bilateral, lower extremity(ies) Mode: active range of motion Exercises: Long arc quads, Marching, Seated heel raises, and Seated toe raises Repetitions: 15 Assist/cueing: Full range of motion and Motor control Education: -Role of PT in acute setting and collaborated with patient and/or family on goals and plan of care. Patient educated importance of mobility throughout the day performing 5-6 walks and performing lower extremity exercises 5-6 times per day The patient's status was discussed and the following coordination of care occurred with the test boring crew chief/Caregiver Present: SonFavio Patient was left in bedside chair at end of session with call light in reach, all needs met and questions answered. Assessment Discharge Therapy Needs - PT: Ongoing skilled physical therapy (TBD based on hospital course) Skilled therapy can include physical therapy provided by home health, outpatient clinic, or a post-acute facility. The location of these services is determined by the patient's care team in partnership with patient/family. Equipment Recommended - PT: Front-wheeled walker Barriers to Discharge Home: Current functional status, Fall risk, Limited caregiver availability, Limited caregiver support Barriers to Discharge Comments: Patient could have 24/7 supervision from family if necessary. From a physical therapy perspective, the level of care above has been recommended for Mr. Vega after hospital discharge. This level of care is based on his functional abilities during today's session. This may change throughout the hospital course and will be updated as appropriate. Clinical Impression: Kalen Vega is a 83 y.o. male who was admitted to [facility] in [place] on 08/13/2023 for Hematuria with cystotomy and right ureteral stent placed on 08/14. 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 Currently, patient presents with decreased strength, increased pain, impaired static balance, impaired dynamic balance, decreased activity tolerance, and cardiopulmonary impairments resulting in the following impaired bed mobility, impaired transfers, impaired gait, impaired ability to complete ADLs, and impaired ability to complete stairs. Patient is grossly CGA to Min assist for mobility. Required assist for [id number] for force generation and is generally standby assist gait with FWW. Mainly limited by lower extremity fatigue and shortness of breath. Patient was given lower extremity exercises to perform throughout the day and advised to walk outside of his room roughly 5-6 times per day for continued lower extremity strengthening and overall endurance. Patient is currently caregiverfor who has Parkinson's, and receives help from son for laundry and cooking. Patient has family in the area that could provide 24/ supervision if needed. Stairs and bed mobility are yet to be assessed to help determine optimal discharge location. Physical therapy treatment is medically necessary to restore and maximize function, maximize safetyand facilitate discharge to home, teach and educate the patient and/or caregivers. Progress: Progressing toward goals Plan PT Plan Comments: Progress ambulatory endurance, LE and UE strengthening, assess bed mobility, assess stairs Functional Goals: PT Inpatient Goals PT Goal #1: Patient will perform bed mobility independently and without use of bed features to promote return to functional baseline. PT Goal #1 Status: Ongoing PT Goal #2: Patient will perform [id number] transfer with modified independence and least restrictive gait aid promote functional independence upon discharge. PT Goal #2 Status: Progressing PT Goal #3: Patient will ambulate 20 m with modified independence and least restrictive gait aid topromote independent mobility within the home. PT Goal #3 Status: Progressing PT Goal #4: Patient will ascend and descend 5 steps with modified independence and use unilateral hand rail to facilitate safe entry and exit from home. PT Goal #4 Status: Ongoing Kalen Vega has Good rehab potential to meet the expected outcomes in a reasonable period of time. Treatment Plan: Plan: Plan of care initiated PT Amount: 1 visit per day PT Frequency: 5 times per week Requires Inpatient Follow-Up: Yes PT - Next Inpatient Appointment: 08/18/23 Patient agrees with the plan of care and goals. Treatment interventions may include: Treatment/Interventions: Therapeutic exercise, Therapeutic functional activity, Neuromuscular re-education, Manual therapy, Gait training, Therapeutic modalities as needed, Self-care/home management Tiered PT Evaluation Codes: Comorbid Conditions: Cancer, Cardiopulmonary disease, Renal disease Personal Factors: Hearing impairment, Living situation, History of falls, Needs assistive device Examination elements: 4+ Clinical Presentation: Stable Clinical Decision Making: Low complexity clinical decision making Billing: Time Spent with Patient Evaluations PT Eval - Low Complexity: 20 min Therapeutic Interventions Therapeutic Activity (min): 20 min Time Tracking Total Timed Units (min): 20 min Total Treatment Time (min): 40 min SOPHIA Celestin Associated attestation - Fidencio Caban P.T., D.PJonahTJonah - 08/17/2023 5:45 PM CDT This therapist has reviewed all documentation and supervised today???s session. The therapist agrees with the plan developed in collaboration with the patient. * Lisa Seaman O.T., MOT - 08/16/2023 10:01 AM CDT Occupational Therapy [facility] Inpatient Evaluation/Treatment SUBJECTIVE Patient's Name: Kalen Vega Referring/Attending Provider: Boubacar Brock M.D. Reason for Referral: Occupational Therapy Evaluation and Treatment PERTINENT MEDICAL / SURGICAL HISTORY: Kalen Vega has no past medical history on file. Kalen Vega has no past surgical history on file. History of Present Illness: Kalen Vega is a 83 y.o. male who was admitted to [facility] in [place] on 08/13/2023 for Hematuria [R31.9]. Relevant Medical History: patient underwent 08/14 for open bladder repair, right ureteral stent exchange. AVSS. Precautions Other Precautions: abdominal; fall risk Falls screen: Fall in the last 12 months: Yes, tripped taking garbage out. Did you have an injury with the fall: Yes, scratches on face and broken glasses. Did not visit ED Are you fearful of falling: Yes Pain Assessment: Pain not reported during session. Subjective Comments: Patient greeted in bed and agreeable to therapy session. Team Communication: The patient's status was discussed and coordination of care occurred with RN, PT Family/Caregiver Present: Son and [id number]. Home Living and Equipment: Lives with: Spouse/Significant other, (Gavin (adult son)) Receives help from: No help from others and has home health for spouse who has [place]. They started this past week. Type of Home: House Home Layout: One Level + basement Able to live on main level with bedroom/bathroom Laundry in basement Home Access: Stairs to enter: Number of steps: 2, Railing: unilateral handrail - drop down to living room 2 steps with bilateral hand rails Bathroom Accessibility: Accessible via walker Shower: Walk-in Shower Enclosure Type: Sliding glass door Bathroom Equipment: Grab bars in shower, Hand-held shower head, Shower chair with back, Non-skid mat Toilet: Comfort Toilet Toilet Equipment: None Assistive Device Owned: Front wheeled walker, Single point cane Adaptive Equipment Owned: Catering Administrative Assistant, Long Handled Shoe Horn Other DME Owned: Regular flat bed Prior Level of Function and Mobility: Basic Activities of Daily Living: Independent Instrumental Activities of Daily Living: Required Assistance: Jessicaundmelissa son assists with laundry and cooking Functional Mobility: Independent Driving: Yes Occupational Role: Retired Leisure Interests: watch movies, plays [employer] train, meets friends for breakfast. Patient/Caregiver Goals: Discharge home OBJECTIVE Vital Signs: Vitals taken pre, during, and post mobility (nursing notified of patient response to activity). HR: 95-134 during session. BP within normal ranges. Evaluation Assessment: STRENGTH: Generalized weakness RANGE OF MOTION: Generalized weakness BALANCE: Static Sitting: Good (Maintains balance without support) Dynamic Sitting: Good (Maintains balance without support) Static Standing: Fair (Maintains balance with handheld assist) Dynamic Standing: Good (Maintains balance without support) ACTIVITY TOLERANCE: Endurance: Tolerates less than 10 minutes of activity HEARING/VISION: Hearing: Hard of hearing - functional with hearing aids Baseline Vision/Correction: Wears glasses all the time Outcome Measures: AM-[facility] Inpatient Short Form: Putting on and taking off regular lower body clothing?: A lot Putting on and taking off regular upper body clothing?: A Little Taking care of personal grooming such as brushing teeth?: None Bathing (including washing, rinsing, drying)?: A lot Toileting, which includes using toilet, bedpan, or urinal?: A lot Eating meals?: Total (NPO) Daily Activities Raw Score (max 24): 14 Daily Activities Standardized Score: 33.39 Interpretation: Based on scoring guidelines using the raw score value: Those going to home had an average score at or above 18 Those going to facility had an average score at or below 17 Clinicians answer the [facility] Inpatient Short Form based on observed patient activity and/or clinical judgment (ie. patient can be scored without physically performing each activity) Cognition: Will further assess and monitor as warranted - Cognitive Assessment Method: Therapist observations - Orientation: Oriented x4 - Arousal/Alertness: Appropriate responses to stimuli - Following Commands: Follows all commands without difficulty Therapeutic Interventions: ACTIVITIES OF DAILY LIVING: LOWER BODY DRESSING - Assist Level: Maximal Assist - Patient Location: Edge of bed - LB Dressing Item: incontinent brief - Therapist Delivery: assessed, instructed, educated, assisted - Assist/Cues: verbal, visual, and manual for technique, assistance for thoroughness BED MOBILITY: SUPINE to SIT - Assist Level: Moderate Assist, x 1 - Device: use of bed rail, head of bed elevated, sheet - Therapist Delivery: assessed, instructed, educated, assisted - Assist/Cues: verbal, tactile, and manual for log roll technique, proper hand placement, proper leg placement, trunk support, lower extremity support FUNCTIONAL TRANSFERS: SIT<>STAND - Assist Level: Minimal Assist - Equipment: front wheeled walker and gait belt - Surface: Bed, Chair - Therapist Delivery: assessed, instructed, educated - Assist/Cues: verbal and manual for proper hand placement, assistance for thoroughness TRANSFER - Assist Level: Contact Guard Assist, Minimal Assist, x 1, + assist for line management - Equipment: front wheeled walker and gait belt - Approach: To and From, Ambulating - Surface: Bed, Chair - Therapist Delivery: assessed, instructed, educated, assisted - Assist/Cues: manual for increased time, balance Education/Training Provided: Provided education on role of occupational therapy in the acute setting. Collaborated with patient and/or family on goals and plan of care. Abdominal Precautions: - Instructions given on abdominal protection strategies including use of log roll technique, avoiding bending and twisting motions, avoid heavy pushing and pulling, and consider bracing incision withpillow or binder to decrease pain. Functional Transfers: - Provided instruction and cues during functional sit to/from stand transfers, including body alignment to surface, appropriate hand placement, and optimal placement of extremities to optimize safetyand technique. Activity Recommendations During Hospitalization: Patient educated on importance of activity and mobility to improve pulmonary function/hygiene, activity tolerance, strength, and overall well-being while in the hospital setting. - Eat ALL meals in chair - Active engagement in daily self-care routine (oral cares, face washing, etc.) - Active engagement in leisure tasks as appropriate/safe (reading, music, games/cards, etc.){ - Maintain typical day/night routine and incorporate sleep hygiene strategies - Ambulate/transfer into chair 3-5x/day Patient was left in bedside chair at end of session with call light in reach, all needs met and questions answered. Assessment Discharge Therapy Needs - OT: Ongoing skilled occupational therapy Skilled therapy can include occupational therapy provided in home health, outpatient or post-acute facility. The location of these services is determined by patient's care team in partnership with patient/family. Barriers to Discharge Home: Current functional status, Fall risk, Limited caregiver availability, Limited caregiver support Recommended Adaptive Equipment - OT: (ongoing) Level of Care Needed - OT: Assistance with toileting, Assistance with toilet/shower transfers, Assistance with medication set up/administration, Assistance with meal preparation, Assistance with dressing, Assistance with showering/bathing, Assistance with transportation, Assistance with housekeeping, Assistance with shopping Clinical Impression: Currently, patient presents with impairments including pain, decreased activity tolerance, limited endurance, and impaired range of motion resulting in functional deficits including impaired functional mobility and decreased independence with self care tasks. The patient is an 83 y.o male who was pr eviously independent with ADL/IADLs. 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 The patient required minimal assistance of 1 for functional transfers and maximal assistance for lower body dressing. He is limited by the above stated impairments. At this time the patient requires assistance for all ADL/IADLs and functional transfers to maximize safety. He is below baseline functioning. . The patient will benefit from ongoing occupational therapy services while hospitalized in order to improve engagement and independence in meaningful occupations. Plan OT Plan Comments: Next Session: LB dressing; toileting; progress mobility as able. Functional Goals: OT Goal #1: The patient will demonstrate the ability to complete toileting including clothing management, leslee-cares and transfer with supervision/set up assistance to progress towards prior level offunction OT Goal #1 Status: Ongoing OT Goal #2: The patient will complete grooming tasks standing at sink for 5 + minutes with set up assistance to progress towards independence with self cares prior to discharge. OT Goal #2 Status: Ongoing OT Goal #3: The patient will complete lower body dressing with AE and modified independence to progress independence with self cares prior to discharge. OT Goal #3 Status: Slowly progressing OT Goal #4: The patient will demonstrate/ verbalize understanding of DME/AE recommendations to maximize independence and home safety OT Goal #4 Status: Ongoing Progress: Improving as expected Rehab potential: Mr. Vega has good potential to achieve established occupational therapy goals within the time frame outlined below. OT Frequency: OT Amount: 1 visit per day OT Frequency: 5 times per week OT Inpatient Duration : Until goals are met or hospital discharge Requires Inpatient OT Follow-Up: Yes OT - Next Inpatient Appointment: 08/17/23 Plan: Plan of care initiated Treatment interventions may include: Treatment Interventions: Therapeutic exercise, Therapeutic functional activity, Self-care/home management, Cognitive skills training Occupational Therapy Attestation Statement: Patient agrees with the plan of care and goals. Billing: Tiered OT Evaluation Codes: Personal Factors: Hearing impairment, Living situation, History of falls, Needs assistive device Occupational Profile and History review: Expanded Performance Deficits: 3 - 5 performance deficits Evaluation Complexity: Moderate Time Spent with Patient Evaluations OT Eval - Mod Complexity: 17 min Therapeutic Interventions Home Management Training (min): 26 min Time Tracking Total Timed Units (min): 26 min Total Treatment Time (min): 43 min Lisa Seaman O.T., MOT * Sivakumar Parham L.G.STimi, M.S.W. - 08/14/2023 9:59 AM CDTAssociated Order(s): IP CONSULT TO CARE MANAGEMENT Psychosocial Assessment SUBJECTIVE DEMOGRAPHIC INFORMATION Referral Source: Early Screen for Discharge Planning Referral Reason: Psychosocial Assessment and Discharge Planning Person(s) present during interview: Patent and patients sonFavio Previous Psychosocial Assessment : No Primary care clinic and provider: ELSEWHERE, PCP They were advised of the various topics that will be assessed during this evaluation. They consented to proceed. The information provided in the assessment is based on review of the medical record aswell as the interview. They were advised that the content of this interview will be shared with the health care team. It was discussed that staff are mandated reporters and they reported understanding. HISTORY OF PRESENT ILLNESS Patient stated that he came to the hospital due to blockage in his bladder. Patient stated that he is scheduled to have surgery tomorrow to hopefully remove the blockage. Please refer to the patient's EMR for all medical history. SOCIAL HISTORY Family / Household: Patient lives with his and his adult son. Patient has 3 adult children total, all are a great support. 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 Abuse, Neglect, Maltreatment, Trauma: Current: Patient denied. and Family denied. ENVIRONMENTAL SUPPORTS Current Living Situation: Patient lives in a ranch style home with his and adult son. There are 2 steps to enter into the front door, with a handrail next to them. Anticipated modifications to the patient's home environment: None FUNCTIONAL STATUS (ADL's and IADL's) Dressing: independent Feeding: independent Bathing: independent Grooming: independent Toileting: independent Transfer to/from Bed, Chair, Etc.: independent Mobility: independent Meal Prep: independent Medication Setup/Administration: independent Telephone Use: independent Housekeeping: independent Shopping: independent Managing Finances: independent It is anticipated that the patient will need assistance with housekeeping and managing finances ASSISTIVE DEVICES Patient has the following equipment: grab bars - toilet, grab bars - wall, handrails for stairs, and tub/shower chair/bench Patient anticipates potentially needing the following additional equipment: none Transportation needs: independent to drive FORMAL AND INFORMAL RESOURCES Patient stated that he does not have any formal resources or services coming in the home for himself, his does receive home health services due to her Parkinson's disease. Patient did list family as a strong support system when needed. FINANCES/INSURANCE Primary insurance: MEDICARE A AND B Secondary insurance: MEDICA Financial concerns: No ADVANCE DIRECTIVES Patient has an advance directive, not in chart OBJECTIVE Suicide Risk and Safety Risk Assessment: Suicidal: No Homicidal: No Current Stressors -current medical condition -patient's has Parkinson's disease and he has been the primary caregiver even though his children have been released supportive when needed. Coping Skills/Strengths Prior level of independent Strong family support system ASSESSMENT / PLAN DISCUSSION Social work met with patient and patient's son, Favio, at the bedside to provide a supportive visit, complete a psychosocial assessment and assist with discharge planning. Introduced self and reviewed role as an inpatient social media community manager. Patient expressed understanding and was agreeable to participate in this visit with family present. He appeared to be a reliable historian for the purpose of this assessment. Patient stated that he came to the hospital due to blockage in his bladder. Patient stated that he is scheduled to have surgery tomorrow to hopefully remove the blockage. Please refer to the patient's EMR for all medical history. Prior to admission, patient was residing with his and his adult son in a [place]amb[place] style house. He reports being independent in all ADLs/IADLs, although his 3 children visit frequently and assist when needed. He typically does not use any mobility equipment for baseline mobility. He does not utilize any formal services in the home, his is receiving home health care due to her current medical condition. Family assist with transportation when needed. He feels he is coping appropriately and denies concerns related to mood/Mental Health, abuse/neglect, suicidal ideation/intent or substance abuse. In regards to discharge planning, patient anticipates returning home with his family support. He does not feel he will need additional services or resources upon discharge. His family will continue assisting him as they have been prior to admission. They will provide transportation once he is stable for dismissal. Patient and family expressed gratitude for today's visit and reports no further questions. Additional resources have been declined, including a formal Senior linkage Line referral. Encourage them to contact social Work should additional needs arise. IMPRESSION Patient is a pleasant 83-year-old male admitted to the hospital on 08/13/2023. He was awake, alert and engaged in conversation with his family when social media community manager entered the room. He was engaged in discussion and able to maintain eye contact throughout the assessment. He appears to be coping appropriately with his hospitalization and denies specific mood concerns. His family was attentive at the bedside and remained appropriately involved in his plan of care. Patient and family have all demonstrated insight into his current needs and appears to be planning appropriately for discharge. INTERVENTIONS A comprehensive assessment was completed utilizing solution focused discussion with a strength based approach PLAN Patient anticipates discharge home to self-care with family support once medically stable. Family will provide transportation when patient is discharged from the hospital. Social work will continue following to provide ongoing psychosocial support and assist with discharge planning. Anticipated barriers to the transition of care/plan: None Shorty Adhikari, M.S.W. 08/14/2023 * Sixto Cain M.D. - 08/13/2023 5:18 PM CDTAssociated Order(s): IP CONSULT TO UROLOGY SUBJECTIVE Mr. 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 Heis on anticoagulation and dual antiplatelet therapy for history of DVT and coronary artery disease. He states that he had a fall at home earlier this week and since that time has been having gross hematuria. He started to have worsening hematuria and clots overnight so he presented to the emergencydepartment locally at approximately 3:00 a.m. a 22 Hungarian three-way catheter was placed and CBI wasinitiated. Unfortunately he clotted off the catheter multiple times despite manual irrigations, started to develop hypotension and tachycardia [facility] He relays the above history to me Of note per his last cystoscopic operative report in early July there was no evidence of radiationcystitis at that time Antiplatelets/Anticoagulants: Xarelto and Plavix Steroids/Immunosuppressants: None Smoking status: None NPO time: Yesterday Past Medical History Metastatic prostate cancer on ADT Radiation proctitis and recurrent GI bleeds CAD status post stents on Plavix DVT on Xarelto Past Surgical History Multiple prior stent exchanges in nephrostomy tubes on the right Multiple prior GI procedures for radiation proctitis Social History Reviewed OBJECTIVE Physical Exam General: No acute distress, awake, alert, oriented Neuro: Moving all extremities Heart: Regular rate and rhythm Lungs: Normal effort and respiratory rate Abdomen: Soft, non-tender, non-distended, non-peritonitic Extremities: No edema : 22 Hungarian three-way Jon catheter draining a minimal amount of smith urine Labs Workup currently pending Imaging My personal review of outside CT scan shows the bladder was approximately 50% filled with intraluminal clot burden ASSESSMENT / PLAN # gross hematuria in the context of metastatic prostate cancer on ADT, indwelling ureteral stent, chronic anticoagulation 83-year-old male with the above history presenting with gross hematuria and clot urinary retention Given his non draining 22 Hungarian three-way catheter the Urology techs and I subsequently exchanged this for a 24 Hungarian three-way Alcock in the usual sterile fashion. We subsequently began manual irrigation and aspiration. Approximately 3-500 cc of clots were aspirated, over 3 L of normal saline irr igation was used. At the conclusion of this his bladder was draining thin smith urine and we initiated CBI. His abdomen was serially examined and was not distended, however was tender to palpation. Given approximately 10 hours of intermittent CBI at an outside hospital with multiple episodes of catheter malfunction, I would recommend obtaining a stat CT cystogram to rule out bladder injury. This would also help evaluate residual bladder clot burden Addendum: CT cystogram was obtained and notable for small intraperitoneal perforation at the dome of the bladder. We reexamined him and his abdominal exam is improved, it is not tender to palpation. His catheter is draining thin peach to pink urine. Had an extensive discussion with him and his family regarding options which would be immediate exploration and cystorrhaphy versus observation with serial exams. We discussed risks of exploratory laparotomy which would be bleeding (especially heightened on his blood thinners, infection bowel injury, or other damage to surrounding structures. Additionally there significant risks of general anesthesia given his significant cardiac history. After discussion of all this our plan will be to perform serial abdominal exams. We will likely endup proceeding with exploratory laparotomy and cystorrhaphy after a period of time off of his anticoagulation to hopefully decrease his risk of bleeding during the operation. Should he have worsening abdominal pain or decreased urine output we will re- evaluate for more urgent exploratory laparotomy. All questions were answered they were agreeable with that plan Absolutely no CBI should be run overnight Any concerns for nondraining catheter please reach out to our service at the number below Patient was seen and examined with Dr. De Paz who is in agreement Urology will continue to follow [place] [phone] with questions or concerns Sixto Cain M.D. documented in this encounter Nursing Notes * Jose Haro M.SNarendra, R.N. - 08/14/2023 12:23 PM CDT Patient Transfer Note Patient transferred to: [facility] Room: [facility] Accompanied by: JAMEL Garcia Report called? YES Nurse receiving report: JAMEL Gaona Belongings sent with patient? YES Current vital signs: 08/14/23 1200 Vital Signs Temperature 37.1 ??C Temp Source Axillary Heart Rate 94 Heart Rate Source ECG Pulse Rate 92 Pulse Rate Source Pulse oximetry Cardiac Rhythm SR Ectopy PVCs Ectopy Frequency Rare Resp Rate 21 Blood Pressure (!) 139/93 MAP (mmHg) 108 BP Location Left arm;Upper BP Method Automatic Patient Position Semi-recumbent Orthostatic Vitals? No Taylor Agitation Sedation Scale (RASS) 0 Shock Index 0.66 SpO2 97 % Oxygen Therapy Pulse Oximetry Type Continuous Patient Activity At rest $Delivery Method Room air Pain Assessment Pain Assessment 0-10 Numeric Pain Intensity Scale Pain Score 5 - Moderate pain Pain Location Abdomen Pain Orientation Right;Left Pain Descriptors Aching Pain Onset Ongoing Pain Frequency Constant/continuous Clinical Progression Not changed Respiratory Depth/Rhythm Regular Respiratory Pattern Regular Critical Care Service aware of current vital signs? YES * Sixto Teague, R.R.T., L.R.T., [facility] - 08/14/2023 7:00 AM CDT Patient is a 83 y.o. male admitted on 08/13/2023 Principal Problem: Hematuria PMH:History reviewed. No pertinent past medical history. Shift Summary: Patient assessed on Room Air, no respiratory concerns. Plan of Care: Anesthesia bag and mask at bedside and Assess and monitor respiratory status per ICU protocol Oxygen Therapy: $Delivery Method: Room air Recent ABG: No results for input(s): PO2 ART, PCO2 ART, PH ART, HCO3 ART, BASE EXC ART in the last 24hours. Sixto Teague R.R.T., L.R.T., [facility] 08/14/23 7:00 AM CDT * Radha Crespo R.R.T., SiddharthaR.TJonah - 08/13/2023 7:09 PM CDT Patient is a 83 y.o. male admitted on 08/13/2023 Shift Summary: Patient remains room air, and no respiratory issues during the day. PLAN OF CARE: RT will continue to assess respiratory status while in the ICU, and provide respiratory care as needed. Oxygen Therapy: $Delivery Method: Room air Principal Problem #1 Hematuria Electronically signed by: Radha Crespo R.R.T., L.RCarlos 08/13/23 7:10 PM CDT documented in this encounter OR Notes * Op Note - Jakob De Paz M.D. - 08/15/2023 9:37 AM CDT Pre-op Diagnosis Rupture Bladder Spontaneous Post-op Diagnosis Rupture Bladder Spontaneous Microgrinder Operator A certified surgical tech/first assistant actively participated and was necessary for one or more of the following: opening, exposure and visualization during the case, maintaining hemostasis, wound closure resulting in itssafe and expeditious completion. Findings - Ex lap through infraumbilical midline incision - 2 cm bladder dome intraperitoneal perforation identified, clot evacuation and pinpoint cautery for hemostasis performed, closed in 2 layers with PDS - flexible cystoscopy with RIGHT ureteral stent exchange performed, 6Fr x 26cm removed and replacedwith 7Fr x 24cm JJ - skin is closed with stable, cover with wound VAC - Jon catheter exchange, 24Fr [address] with 15cc in balloon to slow drip CBI - 15Fr YARELI drain in pelvis exiting LLQ This case was substantially more difficult than usual because of significant effort and difficulty mobilizing and identifying anatomical structures due to altered surgical field secondary to radiation and tissue friability. Complications None Operative Note Narrative After appropriate identification, the patient is brought into the operating room and placed under general anesthesia. The patient was then prepped and draped in the usual sterile fashion in the supine flexed position. His existing 24 Hungarian three-way Jon catheter was noted to be draining dark merlot color urine. The catheter was prepped into the field. Following surgical pause with confirmation patient identity, planned procedure, allergies, antibiotic administration, laterality, we proceededto fortino midline. An 8cm infraumbilical incision was made and fascia entered. Bladder was noted to be firm and difficult to drop anteriorly, consistent with history of pelvic radiation for prostate cancer. The urachus was identified and ligated, peritoneum entered with prompt evacuation of blood-tinged urine. A 2 cm bladder dome perforation was identified. Of note, bowel surrounding this area who was significantly inflamed, likely combination of prior radiation and current irritation from urine.Minimal lysis of adhesions was performed to allow for mobilization and packing of the bowel to aid in exposure. A Bookwalter was placed with 2 posts and 2 retractors for exposure. The cystotomy was opened to approximately 5cm to allow for adequate evacuation of copious fresh clots within the bladder. In the process, existing right ureteral stent was removed. Visualization of the trigone and bladder neck was difficult, again secondary to immobile bladder from prior radiation. As such, we proceeded with a flexible cystoscopy per urethra. Anterior urethra was unremarkable, sphincter did not coapted, prostatic urethra was nonobstructing in nature. Immediately upon entering the bladder neck brisk bleeding was noted from the anterior bladder wall. Cystoscopy was also performed through the cystot daisy to allow for improved visualization of the bladder neck. Cauterization was performed using the Bugbee electrode through the cystoscope with immediate marked improvement in visualization. The leftureteral orifice was identified along the trigone in orthotopic position effluxing clear yellow urine. The right ureteral orifice was identified along the trigone as well, a 0.035 sensor tip was advanced into the right ureteral orifice following laterality pause until resistance was met. A new 7Fr x 24cm JJ Bard ureteral stent was deployed over wire without a dangle in the usual fashion. Intraop fluoroscopy confirmed satisfactory proximal curl within the vicinity of the renal pelvis. After thorough cystoscopy to confirm satisfactory hemostasis of the bladder mucosa, the cystotomy was closed in 2 layers using 3-0 PDS. Watertight to 100 cc methylene blue test. We will unable to easily mobilize omentum or any additional tissue for additional coverage. A 24 Hungarian three-way catheter was placed with 15 cc in the balloon. This irrigated to light clear pink. A 15 Hungarian YARELI drain wasplaced into the pelvis exiting left lower quadrant. The fascia was closed with interrupted and [id number] 0 PDS. Fat was approximated using 3-0 chromic. Skin was closed with rayshawn, covered with wound VAC. Fhe Jon catheter was placed on slow drip CBI and confirmed to be draining clear pink urine at the conclusion of the case. Given distended bowel and preop nausea vomiting most consistentwith ileus even preop, we elected to place a NG tube at the conclusion of the case to allow for decompression. The patient tolerated the procedure well, was awoken from anesthesia, and transferred tothe recovery area in stable condition. Jakob De Paz M.D. documented in this encounter Miscellaneous Notes * Documentation Clarification - Jakob De Paz M.D. - 08/15/2023 3:00 PM CDT PROVIDER RESPONSE TEXT: To clarify, the appropriate diagnosis supported by the clinical indicators: Hematuria contributed to by Xarelto and Plavix <LCI> QUERY TEXT: DOCUMENTATION CLARIFICATION REQUEST Please clarify/specify the appropriate diagnosis supported in the clinical indicators below. Hematuria contributed to by Xarelto and Plavix Other (explain) Clinically unable to determine (explain) 83 y.o. male with pMHx remarkable for metastatic prostate cancer, prior DVT on anticoagulation withxarelto, CAD s/p PCI on plavix, radiation proctitis with recurrent rectal bleeding, hydronephrosis s/p stent and hematuria who is transferred from [place] ED with 3 days of hematuria & recent history of rectal bleeding which has since resolved. In the outside ED, he received 1 unit PRBCs and crystalloid. Hemoglobin 8s. -H/P, 5-[address] Sylvester gross hematuria in the setting of anticoagulation and antiplatelet therapy. - H/P, 5-[address] Sylvester H/P, 5-[address] Henson: -He last took Plavix and Xarelto yesterday. -Cont holding Eliquis and Plavix in acute setting Please contact me if you have questions. Thank you, ELMER Barker, RN, CPN, CCDS, CCS, CRC Clinical Documentation Review Appraiser Query created by: ELMER Barker, RN, CPN, CCDS, CCS, CRC 08/15/2023 06:49 AM CDT </LCI> * Hospital Course - Carlos Alberto Henson M.D. 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 On 08/09 noticed urinary obstructive symptoms, hematuria. Symptoms worsened until he felt completely obstructed and presented to [place] [facility]. [place] [facility] Attempted Jon insertion but bladder irrigation was unsuccessful on multiple attempts. Hung 1U pRBC's. Given some volume and transferred to [facility] ICU ICU Course Urology consulted and were able to replace Jon with Alcock catheter. Successful irrigation. However, because of abdominal pain and hours without successful irrigation, CT cystogram confirmed small bladder perforation. Was started on ceftriaxone. He also spiked positive blood cultures (E. Coli). He was maintained on ceftriaxone. Per accepting service recs, and concern for active urinary bleeding, was transfused 2U pRBC's prior to transfer. Hospital Course Disposition The patient was discharged to on in condition. They should follow up with on regarding . Medications Changed Started: Changed: Stopped: Follow up: Primary Care Provider: documented in this encounter Plan of Treatment Pending Results Name Type Priority Associated Diagnoses Date/Time Bacteria / Yomaira Culture, Blood #1 Microbiology Routine 08/15/2023 3:3 1 AM CDT Bacteria / Yomaira Culture, Blood #2 Microbiology Routine 08/15/2023 3:3 3 AM CDT Prepare Red Blood Cells, 2 Units Blood Bank Routine 08/13/2023 7:35 PM CDT Prepare Red Blood Cells, 1 Units Blood Bank STAT 08/13/2023 7:35 PM CDT US Lower Extremity Veins Bilateral Imaging RAD - Routine (most inpatients and all outpatients) 08/17/2023 6:58 PM CDT Scheduled Orders Name Type Priority Associated Diagnoses Order Schedule Pulse oximetry, continuous Intensive Care Unit (ICU) status Respiratory Care Routine respirat ory use [id number] reminder at 8am and 8pm until discontinued starting 08/13/2023 APTT (Activated Partial Thromboplastin Time) Lab Timed Once at specifie d time for 1 Occurrences starting 08/18/2023 until 08/18/2023 documented as of this encounter Procedures The patient is currently admitted. The information in this section might not be complete until the patient is discharged. Procedure Name Priority Date/Time Associated Diagnosis Comments ACTIVATED PARTIAL THROMBOPLASTIN TIME (APTT), P Timed 08/17/2023 11:04 PM CDT US LOWER EXTREMITY VEINS BILATERAL RAD - Routine (most inpatients and all outpatients) 08/17/2023 6:58 PM CDT Procedure Note - Senthil Canales M.D. / Radiologist, Rst - 08/17/2023 6:58 PM CDTThis note is [...] thrombosis and management can be found on [email or web address] site. [email or web address] Findings discussed with Tayler Greenwood MD ([id number]) on 08/17/2023 7:11 PM. IMPRESSION: 1. Aging, [...] BLOOD CELLS Routine 08/16/2023 8:07 AM CDT CBC WITHOUT DIFFERENTIAL, B Routine 08/16/2023 3:10 AM CDT BASIC METABOLIC PANEL, S/P Routine 08/16/2023 3:10 AM CDT CBC WITH DIFFERENTIAL, B Timed 08/15/2023 3:58 PM CDT DX ABDOMEN 1 VIEW RAD - Routine (most inpatients and all outpatients) 08/15/2023 1:19 PM CDT LACTATE, B STAT 08/15/2023 11:56 AM CDT PATIENT STATUS STAT 08/15/2023 11:56 AM CDT SODIUM, B STAT 08/15/2023 11:56 AM CDT ABG W/COOX STAT 08/15/2023 11:56 AM CDT POTASSIUM, B STAT 08/15/2023 11:56 AM CDT GLUCOSE, WHOLE BLOOD STAT 08/15/2023 11:56 AM CDT CALCIUM, IONIZED, S/B STAT 08/15/2023 11:56 AM CDT FL FLUORO LESS THAN 1 HOUR RAD - Routine (most inpatients and all outpatients) 08/15/2023 11:22 AM CDT LACTATE, B STAT 08/15/2023 10:28 AM CDT PATIENT STATUS STAT 08/15/2023 10:28 AM CDT SODIUM, B STAT 08/15/2023 10:28 AM CDT ABG W/COOX STAT 08/15/2023 10:28 AM CDT POTASSIUM, B STAT 08/15/2023 10:28 AM CDT GLUCOSE, WHOLE BLOOD STAT 08/15/2023 10:28 AM CDT CALCIUM, IONIZED, S/B STAT 08/15/2023 10:28 AM CDT APPLICATION WOUND VACUUM ABDOMEN 08/15/2023 8:10 AM CDT Rupture Bladder Spontaneous CYSTOSCOPY FLEXIBLE 08/15/2023 8:10 AM CDT Rupture Bladder Spontaneous EXPLORATORY LAPAROTOMY 08/15/2023 8:10 AM CDT Rupture Bladder Spontaneous BACTERIA / YOMAIRA CULTURE, BLOOD Routine 08/15/2023 3:33 AM CDT BACTERIA / YOMAIRA CULTURE, BLOOD Routine 08/15/2023 3:31 AM CDT BASIC METABOLIC PANEL, S/P Timed 08/15/2023 3:31 AM CDT CBC WITH DIFFERENTIAL, B Timed 08/15/2023 3:30 AM CDT CBC WITH DIFFERENTIAL, B Timed 08/14/2023 8:08 PM CDT TRANSFUSE RED BLOOD CELLS Routine 08/14/2023 4:25 PM CDT TRANSFUSE RED BLOOD CELLS Routine 08/14/2023 1:57 PM CDT CBC WITH DIFFERENTIAL, B Timed 08/14/2023 3:18 AM CDT BASIC METABOLIC PANEL, S/P Timed 08/14/2023 3:18 AM CDT BACTERIA / YOMAIRA CULTURE, BLOOD STAT 08/13/2023 7:35 PM CDT PREPARE RED BLOOD CELLS STAT 08/13/2023 7:35 PM CDT PREPARE RED BLOOD CELLS Routine 08/13/2023 7:35 PM CDT TYPE AND SCREEN Timed 08/13/2023 7:35 PM CDT ECG Routine 08/13/2023 7:[address] CYSTOGRAM WITHOUT IV CONTRAST RAD - Emergent (Fastest; for the most critically ill patients) 08/13/2023 6:34 PM CDT HEPATIC FUNCTION PANEL, S Timed 08/13/2023 5:27 PM CDT BACTERIA / YOMAIRA CULTURE, BLOOD STAT 08/13/2023 5:27 PM CDT PROTHROMBIN TIME (PT), P Timed 08/13/2023 5:27 PM CDT CBC WITH DIFFERENTIAL, B Timed 08/13/2023 5:27 PM CDT MAGNESIUM, S Timed 08/13/2023 5:27 PM CDT BASIC METABOLIC PANEL, S/P Timed 08/13/2023 5:27 PM CDT HC OSMOLALITY ASSAY URINE Timed 08/13/2023 5:07 PM CDT DIPSTICK, U Timed 08/13/2023 5:07 PM CDT PH, RANDOM, U Timed 08/13/2023 5:07 PM CDT MICROSCOPIC MANUAL Timed 08/13/2023 5:07 PM CDT BACTERIAL CULTURE, AEROBIC + SUSC, URINE Timed 08/13/2023 5:07 PM CDT URINALYSIS WITH MICROSCOPIC Timed 08/13/2023 5:07 PM CDT INTERPRETATION OF OUTSIDE CT ABDOMEN AND OR PELVIS RAD - Routine (most inpatients and all outpatients) 08/13/2023 4:46 PM CDT documented in this encounter Results * (ABNORMAL) APTT (Activated Partial Thromboplastin Time) (08/17/2023 11:04 PM CDT) Activated Partial Thrombopl Time, P 40(H) 25 - 37 sec 08/17/2023 11:46 PM CDT DTL Blood (Blood, Venous) 08/17/2023 11:04 PM CDT 08/17/2023 11:31 PM CDT Boubacar Brock M.D. LAB BLOOD ADD-ON Performing Organization Address City/[facility] Co de Phone Number [facility] [address] [place] [address], [facility] DTL [facility] [address] [place] [address] * APTT (Activated Partial Thromboplastin Time) (08/17/2023 4:56 PM CDT) Activated Partial Thrombopl Time, P 29 25 - 37 sec 08/17/2023 5:10 PM CDT STMA Blood (Blood, Venous) 08/17/2023 4:56 PM CDT 08/17/2023 5:00 PM CDT Paula Hernandez M.D. LAB BLOOD ADD-ON Performing Organization Address [facility] Co de Phone Number [facility] [address] STMA [facility] [address] [place] [address] * ECG 12 Lead (08/16/2023 9:43 PM CDT) Ventricular Rate ECG/Min 134 BPM MUSE CO Interval 136 ms MUSE QRSD Interval 76 ms MUSE QT Interval 298 ms MUSE QTC Interval 445 ms MUSE P [place] 29 degrees MUSE R [place] -6 degrees MUSE T Wave [place] 21 degrees MUSE 08/16/2023 9:43 PM CDT [...] CBC without Differential (08/16/2023 9:40 PM CDT) Hemoglobin 8.8(L) 13.2 - 16.6 g/dL 08/16/2023 [...] CDT Geneva Azar M.D. LAB BLOOD ADD-ON [facility] [address] [place] [address], [facility] DTL [facility] [address] [place] [address] * (ABNORMAL) Basic Metabolic Panel (08/16/2023 9:40 PM CDT) Potassium, S 3.9 3.6 - 5.2 mmol/L [...] CDT Geneva Azar M.D. LAB BLOOD ADD-ON [address] [address], [facility] [address] * Transfuse Red Blood Cells : (08/16/2023 12:04 PM CDT) Corin Ring M.D. BLOOD TRANSFUSION OR DERABLES * Transfuse Red Blood Cells : , 1 Units (08/16/2023 12:04 PM CDT) Corin Ring M.D. BLOOD TRANSFUSION OR DERABLES * (ABNORMAL) Basic Metabolic Panel (08/16/2023 3:10 AM CDT) [facility] Potassium, S 4.2 3.6 - 5.2 mmol/L 08/16/2023 4:08 AM CDT DTL Sodium, S 138 135 - 145 mmol/L 08/16/2023 4:08 AM CDT DTL Chloride, S 105 98 - 107 mmol/L 08/16/2023 4:08 AM CDT DTL Bicarbonate, S 22 22 - 29 mmol/L 08/16/2023 4:08 AM CDT DTL Anion Gap 11 7 - 15 08/16/2023 4:08 AM CDT DTL BUN (Blood Urea Nitrogen), S 32(H) 8 - 24 mg/dL 08/16/2023 4:08 AM CDT DTL Creatinine 1.52(H) 0.74 - 1.35 mg/dL 08/16/2023 4:08 AM CDT DTL Estimated GFR (eGFR) 45(L) >=60 mL/min/BSA 08/16/2023 4:08 AM CDT DTL Comment: Estimated GFR calculated using the 2020 CKD_EPI creatinine equation. Calcium, Total, S 7.8(L) 8.8 - 10.2 mg/dL 08/16/2023 4:08 AM CDT DTL Glucose, S 103 70 - 140 mg/dL 08/16/2023 4:08 AM CDT DTL Blood (Blood, Venous) 08/16/2023 3:10 AM CDT 08/16/2023 3:53 AM CDT Paula Hernandez M.D. LAB BLOOD ADD-ON [address] [address], [facility] [place] [address] * (ABNORMAL) CBC without Differential (08/16/2023 3:10 AM CDT) Hemoglobin 8.1(L) 13.2 - 16.6 g/dL 08/16/2023 3:48 AM CDT DTL Hematocrit 23.9(L) 38.3 - 48.6 % 08/16/2023 3:48 AM CDT DTL Erythrocytes 2.80(L) 4.35 - 5.65 x10(12)/L 08/16/2023 3:48 AM CDT DTL MCV 85.4 78.2 - 97.9 fL 08/16/2023 3:48 AM CDT DTL RBC Distrib Width 16.3(H) 11.8 - 14.5 % 08/16/2023 3:48 AM CDT DTL Platelet Count 205 135 - 317 x10(9)/L 08/16/2023 3:48 AM CDT DTL Leukocytes 13.7(H) 3.4 - 9.6 x10(9)/L 08/16/2023 3:48 AM CDT DTL Blood (Blood, Venous) 08/16/2023 3:10 AM CDT 08/16/2023 3:39 AM CDT Paula Hernandez M.D. LAB BLOOD ADD-ON [facility] [address] [place] [address], [facility] [address] [address] * (ABNORMAL) CBC with Differential, Blood (08/15/2023 3:58 PM CDT) Pathologist [facility] Hemoglobin 9.0(L) 13.2 - 16.6 g/dL 08/15/2023 [...] Carlos Alberto Henson M.D. LAB BLOOD ADD-ON [facility] [address] [place] [address], [facility] DTL [facility] [address] [place] [address] DHPM [facility] [address] [place] [address] * DX Abdomen 1 View (08/15/2023 1:19 [...] M.D. IMG DIAGNOSTIC IMAGI NG PROCEDURES * Patient Status (08/15/2023 11:56 AM CDT) Temperature 36.2 37.0 deg C 08/15/2023 12:04 PM CDT STMA Blood 08/15/2023 11:5 6 AM CDT 08/15/2023 12:03 PM CDT Rae Gonzalez SECURITY ASSISTANT, [employer]INE SET UP MECHANIC, DNAP LAB BLOO D NON ADD-ON [facility] [address] [place] [address], [facility] [address] [place] [address] * Lactate, B - Intra-op (08/15/2023 11:56 AM CDT) Pathologist [facility] Lactate, B 1.1 0.5 - 2.2 mmol/L 08/15/2023 12:06 PM CDT STMA Blood (Blood, Venous) 08/15/2023 11:56 AM CDT 08/15/2023 12:03 PM CDT Hayde Song M.D. LAB BLOOD NON ADD-O N [facility] [address] [place] [address], [facility] [address] [place] [address] * (ABNORMAL) Glucose, Whole Blood (08/15/2023 11:56 AM CDT) Glucose 144(H) 70 - 140 mg/dL 08/15/2023 12:06 PM CDT STMA Blood (Blood, Arterial Line) 08/15/2023 11:56 AM CDT 08/15/2023 12:03 PM CDT Hayde Song M.D. LAB BLOOD ADD-ON Performing Organization Address City/[facility] Co de Phone Number [facility] [address] [place] [address], [facility] [address] [place] [address] * Potassium, Blood (08/15/2023 11:56 AM CDT) Potassium, B 4.3 3.6 - 5.2 mmol/L 08/15/2023 12:07 PM CDT STMA Blood (Blood, Arterial Line) 08/15/2023 11:56 AM CDT 08/15/2023 12:03 PM CDT Hayde Song M.D. LAB BLOOD NON ADD-O N Performing Organization Address City/[facility] Co de Phone Number [facility] [address] [place], [place] [address]R [facility] [address] [place] [address] * Sodium, B (08/15/2023 11:56 AM CDT) Sodium, B 135 135 - 145 mmol/L 08/15/2023 12:06 PM CDT STMA Blood (Blood, Arterial Line) 08/15/2023 11:56 AM CDT 08/15/2023 12:03 PM CDT Hayde Song M.D. LAB BLOOD NON ADD-O N Performing Organization Address City/[facility]/ZIP Co de Phone Number [facility] [address] [place], [place] [address]R [facility] [address] [place] [address] * (ABNORMAL) Calcium, Ionized (08/15/2023 11:56 AM CDT) Calcium, Ionized, B 4.53(L) 4.65 - 5.30 mg/dL 08/15/2023 12:07 PM CDT STMA Blood (Blood, Arterial Line) 08/15/2023 11:56 AM CDT 08/15/2023 12:03 PM CDT Hayde Song M.D. LAB BLOOD NON ADD-O N [facility] [address] [place] [address], [facility] STMA [facility] [address] [place] [address] * (ABNORMAL) Blood Gas with Coox, Arterial (08/15/2023 11:56 AM CDT) pO2 166(H) 83 - 108 mm Hg [...] Song M.D. LAB BLOOD NON ADD-O N [facility] [address] [place] [address] * FL Fluoro Less Than 1 Hour (08/15/2023 11:22 AM CDT) Narrative 152 HOS LOS RST - 08/15/2023 11:24 AM CDT This exam does not require a radiologist review or interpretation. Please refer to the patient's medical record on this date for clinical details. Boubacar Brock M.D. IMG FLUOROSCOPY PROC EDURES 152 HOS LOS RST * Patient Status (08/15/2023 10:28 AM CDT) Temperature 36.1 37.0 deg C 08/15/2023 10:28 AM CDT STMA FIO2 0.55 0.21=AIR 08/15/2023 10:28 AM CDT STMA Blood 08/15/2023 10:2 8 AM CDT 08/15/2023 10:28 AM CDT Rae Gonzalez SECURITY ASSISTANT, [employer]SEM[employer] MACHINE SET UP MECHANIC, DNAP LAB BLOO D NON ADD-ON Performing Organization Address City/[facility]/ZIP Co de Phone Number [facility] [address] [place] [address] * Lactate, B - Intra-op (08/15/2023 10:28 AM CDT) Lactate, B 1.1 0.5 - 2.2 mmol/L 08/15/2023 10:30 AM CDT STMA Blood (Blood, Venous) 08/15/2023 10:28 AM CDT 08/15/2023 10:28 AM CDT Hayde Song M.D. LAB BLOOD NON ADD-O N [facility] [address] [place] [address] * Glucose, Whole Blood (08/15/2023 10:28 AM CDT) Glucose 134 70 - 140 mg/dL 08/15/2023 10:30 AM CDT [facility] Blood (Blood, Arterial Line) 08/15/2023 10:28 AM CDT 08/15/2023 10:28 AM CDT Hayde Song M.D. LAB BLOOD ADD-ON [facility] [address] [place] [address] * Potassium, Blood (08/15/2023 10:28 AM CDT) Potassium, B 4.1 3.6 - 5.2 mmol/L 08/15/2023 10:31 AM CDT [facility] Blood (Blood, Arterial Line) 08/15/2023 10:28 AM CDT 08/15/2023 10:28 AM CDT Narrative Authorizing Provider Result Abdifatah Song M.D. LAB BLOOD NON ADD-O N [facility] [address] [place] [address] * Sodium, B (08/15/2023 10:28 AM CDT) Sodium, B 135 135 - 145 mmol/L 08/15/2023 10:30 AM CDT [facility] Blood (Blood, Arterial Line) 08/15/2023 10:28 AM CDT 08/15/2023 10:28 AM CDT Narrative Authorizing Provider Result Abdifatah Song M.D. LAB BLOOD NON ADD-O N Performing Organization Address City/[facility]/ZIP Co de Phone Number [facility] [address] [place] [address] * (ABNORMAL) Calcium, Ionized (08/15/2023 10:28 AM CDT) Calcium, Ionized, B 4.25(L) 4.65 - 5.30 mg/dL 08/15/2023 10:31 AM CDT STMA Blood (Blood, Arterial Line) 08/15/2023 10:28 AM CDT 08/15/2023 10:28 AM CDT Hayde Song M.D. LAB BLOOD NON ADD-O N Performing Organization Address City/[facility] Co de Phone Number [facility] [address] [place] [address] * (ABNORMAL) Blood Gas with Coox, Arterial (08/15/2023 10:28 AM CDT) pO2 171(H) 83 - 108 mm Hg 08/15/2023 10:30 AM CDT STMA pCO2 39 35 - 48 mm Hg 08/15/2023 10:30 AM CDT STMA pH 7.35 7.35 - 7.45 pH 08/15/2023 10:30 AM CDT STMA Base Excess -4(L) -2 - 3 mmol/L 08/15/2023 10:30 AM CDT STMA HCO3 22 22 - 26 mmol/L 08/15/2023 10:30 AM CDT STMA Hemoglobin, Venous 8.8(L) 13.2 - 16.6 g/dL 08/15/2023 10:30 AM CDT STMA O2Hb 97.5 94.0 - 98.0 % 08/15/2023 10:30 AM CDT STMA COHb 1.6 <3.0 % 08/15/2023 10:30 AM CDT STMA MetHb <1.0 <1.5 % 08/15/2023 10:30 AM CDT STMA CtO2 12.5(L) 18.0 - 21.0 vol % 08/15/2023 10:30 AM CDT STMA Blood (Blood, Arterial Line) 08/15/2023 10:28 AM CDT 08/15/2023 10:28 AM CDT Hayde Song M.D. LAB BLOOD NON ADD-O N [facility] [address] [place] [address], [facility] [address] [place] [address] * (ABNORMAL) Basic Metabolic Panel (08/15/2023 3:31 AM CDT) Potassium, S 4.0 3.6 - 5.2 mmol/L 08/15/2023 4:40 AM CDT DTL Sodium, S 136 135 - 145 mmol/L 08/15/2023 4:40 AM CDT DTL Chloride, S 103 98 - 107 mmol/L 08/15/2023 4:40 AM CDT DTL Bicarbonate, S 21(L) 22 - 29 mmol/L 08/15/2023 4:40 AM CDT DTL Anion Gap 12 7 - 15 08/15/2023 4:40 AM CDT DTL BUN (Blood Urea Nitrogen), S 31(H) 8 - 24 mg/dL 08/15/2023 4:40 AM CDT DTL Creatinine 1.47(H) 0.74 - 1.35 mg/dL 08/15/2023 4:40 AM CDT DTL Estimated GFR (eGFR) 47(L) >=60 mL/min/BSA 08/15/2023 4:40 AM CDT DTL Comment: Estimated GFR calculated using the 2020 CKD_EPI creatinine equation. Calcium, Total, S 8.0(L) 8.8 - 10.2 mg/dL 08/15/2023 4:40 AM CDT DTL Glucose, S 105 70 - 140 mg/dL 08/15/2023 4:40 AM CDT DTL Blood (Blood, Venous) 08/15/2023 3:31 AM CDT 08/15/2023 4:24 AM CDT Jakob De Paz M.D. LAB BLOOD ADD-ON [facility] [address] [place] [address], [facility] DTL [facility] [address] [place] [address] * (ABNORMAL) CBC with Differential, Blood (08/15/2023 3:30 AM CDT) Hemoglobin 9.5(L) 13.2 - 16.6 g/dL 08/15/2023 4:13 AM CDT DTL Hematocrit 29.1(L) 38.3 - 48.6 % 08/15/2023 4:13 AM CDT DTL Erythrocytes 3.38(L) 4.35 - 5.65 x10(12)/L 08/15/2023 4:13 AM CDT DTL MCV 86.1 78.2 - 97.9 fL 08/15/2023 4:13 AM CDT DTL RBC Distrib Width 16.7(H) 11.8 - 14.5 % 08/15/2023 4:13 AM CDT DTL Platelet Count 215 135 - 317 x10(9)/L 08/15/2023 4:13 AM CDT DTL Leukocytes 13.2(H) 3.4 - 9.6 x10(9)/L 08/15/2023 4:13 AM CDT DTL Neutrophils 12.39(H) 1.56 - 6.45 x10(9)/L 08/15/2023 4:13 AM CDT DHPM Lymphocytes 0.27(L) 0.95 - 3.07 x10(9)/L 08/15/2023 4:13 AM CDT DTL Monocytes 0.53 0.26 - 0.81 x10(9)/L 08/15/2023 4:13 AM CDT DTL Eosinophils <0.03 0.03 - 0.48 x10(9)/L 08/15/2023 4:13 AM CDT DTL Basophils <0.03 0.01 - 0.08 x10(9)/L 08/15/2023 4:13 AM CDT DTL Blood (Blood, Venous) 08/15/2023 3:30 AM CDT 08/15/2023 4:05 AM CDT Carlos Alberto Henson M.D. LAB BLOOD ADD-ON [facility] [address] [place] [address], [facility] DTL [facility] [address] [place] [address] [facility] [address] [place] [address] * (ABNORMAL) CBC with Differential, Blood (08/14/2023 8:08 PM CDT) Hemoglobin 9.8(L) 13.2 - 16.6 g/dL 08/14/2023 8:14 PM CDT STMA Hematocrit 29.8(L) 38.3 - 48.6 % 08/14/2023 8:14 PM CDT STMA Erythrocytes 3.46(L) 4.35 - 5.65 x10(12)/L 08/14/2023 8:14 PM CDT STMA MCV 86.1 78.2 - 97.9 fL 08/14/2023 8:14 PM CDT STMA RBC Distrib Width 16.9(H) 11.8 - 14.5 % 08/14/2023 8:14 PM CDT STMA Platelet Count 199 135 - 317 x10(9)/L 08/14/2023 8:14 PM CDT STMA Leukocytes 14.8(H) 3.4 - 9.6 x10(9)/L 08/14/2023 8:14 PM CDT STMA Neutrophils 13.96(H) 1.56 - 6.45 x10(9)/L 08/14/2023 8:14 PM CDT DHPM Lymphocytes 0.30(L) 0.95 - 3.07 x10(9)/L 08/14/2023 8:14 PM CDT STMA Monocytes 0.56 0.26 - 0.81 x10(9)/L 08/14/2023 8:14 PM CDT STMA Eosinophils <0.03 0.03 - 0.48 x10(9)/L 08/14/2023 8:14 PM CDT STMA Basophils <0.03 0.01 - 0.08 x10(9)/L 08/14/2023 8:14 PM CDT STMA Blood (Blood, Venous) 08/14/2023 8:08 PM CDT 08/14/2023 8:12 PM CDT Carlos Alberto Henson M.D. LAB BLOOD ADD-ON [facility] [address] [place] [address], [facility] STMA [facility] [address] [place] [address] [facility] [address] [place] [address] * Transfuse Red Blood Cells : , 2 Units (08/14/2023 6:55 PM CDT) Carlos Alberto Henson M.D. BLOOD TRANSFUSION OR DERABLES * Transfuse Red Blood Cells : (08/14/2023 6:55 PM CDT) Carlos Alberto Henson M.D. BLOOD TRANSFUSION OR DERABLES * Transfuse Red Blood Cells : (08/14/2023 3:40 PM CDT) Carlos Alberto Henson M.D. BLOOD TRANSFUSION OR DERABLES * (ABNORMAL) CBC with Differential, Blood (08/14/2023 3:18 AM CDT) [facility] Hemoglobin 7.6(L) 13.2 - 16.6 g/dL 08/14/2023 3:23 AM CDT STMA Hematocrit 23.0(L) 38.3 - 48.6 % 08/14/2023 3:23 AM CDT STMA Erythrocytes 2.68(L) 4.35 - 5.65 x10(12)/L 08/14/2023 3:23 AM CDT STMA MCV 85.8 78.2 - 97.9 fL 08/14/2023 3:23 AM CDT STMA RBC Distrib Width 17.7(H) 11.8 - 14.5 % 08/14/2023 3:23 AM CDT STMA Platelet Count 231 135 - 317 x10(9)/L 08/14/2023 3:23 AM CDT STMA Leukocytes 18.2(H) 3.4 - 9.6 x10(9)/L 08/14/2023 3:23 AM CDT STMA Neutrophils 16.87(H) 1.56 - 6.45 x10(9)/L 08/14/2023 3:23 AM CDT DHPM Lymphocytes 0.36(L) 0.95 - 3.07 x10(9)/L 08/14/2023 3:23 AM CDT STMA Monocytes 0.98(H) 0.26 - 0.81 x10(9)/L 08/14/2023 3:23 AM CDT STMA Eosinophils <0.03 0.03 - 0.48 x10(9)/L 08/14/2023 3:23 AM CDT STMA Basophils <0.03 0.01 - 0.08 x10(9)/L 08/14/2023 3:23 AM CDT STMA Blood (Blood, Venous) 08/14/2023 3:18 AM CDT 08/14/2023 3:21 AM CDT Carlos Alberto Henson M.D. LAB BLOOD ADD-ON [facility] [address] [place] [address], [facility] STMA [facility] [address] [place] [address] [facility] [address] [place] [address] * (ABNORMAL) Basic Metabolic Panel (08/14/2023 3:18 AM CDT) Pathologist [facility] Potassium, S 5.4(H) 3.6 - 5.2 mmol/L 08/14/2023 4:49 AM CDT DTL Sodium, S 136 135 - 145 mmol/L 08/14/2023 4:49 AM CDT DTL Chloride, S 107 98 - 107 mmol/L 08/14/2023 4:49 AM CDT DTL Bicarbonate, S 18(L) 22 - 29 mmol/L 08/14/2023 4:49 AM CDT DTL Anion Gap 11 7 - 15 08/14/2023 4:49 AM CDT DTL BUN (Blood Urea Nitrogen), S 31(H) 8 - 24 mg/dL 08/14/2023 4:49 AM CDT DTL Creatinine 1.83(H) 0.74 - 1.35 mg/dL 08/14/2023 4:49 AM CDT DTL Estimated GFR (eGFR) 36(L) >=60 mL/min/BSA 08/14/2023 4:49 AM CDT DTL Comment: Estimated GFR calculated using the 2020 CKD_EPI creatinine equation. Calcium, Total, S 7.6(L) 8.8 - 10.2 mg/dL 08/14/2023 4:49 AM CDT DTL Glucose, S 107 70 - 140 mg/dL 08/14/2023 4:49 AM CDT DTL Blood (Blood, Venous) 08/14/2023 3:18 AM CDT 08/14/2023 4:32 AM CDT Carlos Alberto Henson [place] [address], [place] [address] * Type and Screen (with Reflex Antibody ID) (08/13/2023 7:35 PM CDT) ABORh O Pos Not applicable 08/13/2023 7:58 PM CDT STRM Antibody Screen Negative Negative 08/13/2023 8:13 PM CDT STRM Type & Screen Expiration 08/16/2023 23:59 08/13/2023 7:58 PM CDT STRM Testing Location [facility] DEFAULT 08/13/2023 7:39 PM CDT STRM Blood (Blood, Venous) 08/13/2023 7:35 PM CDT 08/13/2023 7:39 PM CDT Carlos Alberto Henson M.D. LAB BLOOD BANK TEST ORDERABLES Performing Organization Address City/[facility]/ZIP Co de Phone Number [facility] [address] [place] [address], [facility] [address] [place] [address] * (ABNORMAL) Bacteria / Yomaira Culture, Blood #1 (08/13/2023 7:35 PM CDT) Pathologist [facility] Bacteria/Cand jessica Culture, Blood ESCHERICHIA COLI Growth after 11 Hours (A) 08/16/2023 11:17 AM CDT DTL Comment: 3 of 3 Bottles, Susceptibilities performed on another specimen [id number] Blood (Blood, Peripheral Draw) 08/13/2023 7:35 PM CDT 08/13/2023 8:15 PM CDT Comment:Specimen Source Site : Blood Carlos Alberto Henson M.D. LAB MICROBIOLOGY - G ENERAL ORDERABLES Performing Organization Address City/[facility]/ZIP Co de Phone Number [facility] [address] [place] [address], [facility] [address] [place] [address] * ECG 12 Lead (08/13/2023 7:02 PM CDT) Pathologist [facility] Ventricular Rate ECG/Min 128 BPM MUSE CO Interval 138 ms MUSE QRSD Interval 64 ms MUSE QT Interval 304 ms MUSE QTC Interval 443 ms MUSE P [place] 45 degrees MUSE R [place] 34 degrees MUSE T Wave [place] 46 degrees MUSE 08/13/2023 7:02 PM CDT 08/13/2023 7:13 PM CDT Impressions MUSE - 08/13/2023 7:13 PM CDT Sinus tachycardia Otherwise normal ECG No previous ECGs available Reviewed by BETTY Walton Narrative Procedure Note Lucas Lee M.D. - 08/13/2023 IMPRESSION: Sinus tachycardia Otherwise normal ECG No previous ECGs available Reviewed by BETTY Walton Toby Wright ECG ORDERABLES MUSE NA * CT Cystogram without IV Contrast (08/13/2023 [...] demonstrates small volume intraperitoneal free fluid and Jon catheter within the bladder. Intravesicular contrast was [...] imaging demonstrates small volume intraperitonealfree fluid and Jon catheter within the bladder. Intravesicular contrast was [...] Henson M.D. IMG CT PROCEDURES * (ABNORMAL) Bacteria / Yomaira Culture, Blood #2 (08/13/2023 5:27 PM CDT) Bacteria/Cand jessica Culture, Blood ESCHERICHIA COLI Growth after 11 Hours (A) 08/16/2023 11:17 AM CDT DTL Comment: 2 of 2 Bottles, Critical Result. Blood (Blood, Peripheral Draw) 08/13/2023 5:27 PM CDT 08/13/2023 5:44 PM CDT Comment:Specimen Source Site : Blood Narrative [facility] - 08/16/2023 11:17 AM CDT Received Bactec aerobic and Bactec anaerobic bottles Organism Antibiotic Method Susceptibility Escherichia coli Amikacin SUSCEPTIBILITY, LAYO (MCG/ML) <=4 mcg/mL: Susceptible Escherichia coli Aztreonam SUSCEPTIBILITY, LAYO (MCG/ML) 2 mcg/mL: Susceptible Escherichia coli Ceftazidime SUSCEPTIBILITY, LAYO (MCG/ML) 4 mcg/mL: Susceptible Escherichia coli Ciprofloxacin SUSCEPTIBILITY, LAYO (MCG/ML) <=0.25 mcg/mL: Susceptible Escherichia coli Ceftriaxone SUSCEPTIBILITY, LAYO (MCG/ML) 0.5 mcg/mL: Susceptible Escherichia coli Ertapenem SUSCEPTIBILITY, LAYO (MCG/ML) 0.25 mcg/mL: Susceptible Escherichia coli Cefepime SUSCEPTIBILITY, LAYO (MCG/ML) <=1 mcg/mL: Susceptible Escherichia coli Gentamicin SUSCEPTIBILITY, LAYO (MCG/ML) <=1 mcg/mL: Susceptible Escherichia coli Meropenem SUSCEPTIBILITY, LAOY (MCG/ML) <=0.25 mcg/mL: Susceptible Escherichia coli Tobramycin SUSCEPTIBILITY, LAYO (MCG/ML) <=1 mcg/mL: Susceptible Escherichia coli Ampicillin + Sulbactam SUSCEPTI BILITY, LAYO (MCG/ML) 4/2 mcg/mL: Susceptible Escherichia coli Piperacillin + Tazobactam SUSCE PTIBILITY, LAYO (MCG/ML) <=4/4 mcg/mL: Susceptible Escherichia coli Ampicillin SUSCEPTIBILITY, LAYO (MCG/ML) 8 mcg/mL: Susceptible Escherichia coli Levofloxacin SUSCEPTIBILITY, LAYO (MCG/ML) <=0.5 mcg/mL: Susceptible Escherichia coli Cefazolin SUSCEPTIBILITY, LAYO (MCG/ML) <=2 mcg/mL: Susceptible Escherichia coli Trimethoprim + Sulfamethoxazole SUSCEPTIBILITY, LAYO (MCG/ML) <=0.5/9.5 mcg/mL: Susceptible Escherichia coli Cefdinir SUSCEPTIBILITY, LAYO (MCG/ML) <=1 mcg/mL: Susceptible Carlos Alberto Henson M.D. LAB MICROBIOLOGY - G ENERAL ORDERABLES Performing Organization Address City/[facility]/ZIP Co de Phone Number [facility] [address] [place] [address], [address] [address] * Magnesium (08/13/2023 5:27 PM CDT) Magnesium, S 1.9 1.7 - 2.3 mg/dL 08/13/2023 6:12 PM CDT DTL Blood (Blood, Venous) 08/13/2023 5:27 PM CDT 08/13/2023 5:58 PM CDT Carlos Alberto Henson M.D. LAB BLOOD ADD-ON Performing Organization Address City/[facility]/ZIP Co de Phone Number [facility] [address] [place] [address], [address] [address] * (ABNORMAL) Hepatic Function Panel (08/13/2023 5:27 [...] Carlos Alberto Henson M.D. LAB BLOOD ADD-ON [facility] [address] [place] [address], [facility] [address] [place] [address] * (ABNORMAL) Basic Metabolic Panel (08/13/2023 5:27 PM CDT) Potassium, P 5.5(H) 3.6 - 5.2 mmol/L 08/13/2023 5:49 PM CDT [facility] Sodium, P 137 135 - 145 mmol/L 08/13/2023 5:49 PM CDT [facility] Chloride, P 104 98 - 107 mmol/L 08/13/2023 5:49 PM CDT [facility] Bicarbonate, P 19(L) 22 - 29 mmol/L 08/13/2023 5:49 PM CDT [facility] Anion Gap, P 14 7 - 15 08/13/2023 5:49 PM CDT [facility] BUN (Blood Urea Nitrogen), P 30(H) 8 - 24 mg/dL 08/13/2023 5:49 PM CDT [facility] Creatinine 2.31(H) 0.74 - 1.35 mg/dL 08/13/2023 5:49 PM CDT [facility] Estimated GFR (eGFR) 27(L) >=60 mL/min/BSA 08/13/2023 5:49 PM CDT [facility] Comment: Estimated GFR calculated using the 2020 CKD_EPI creatinine equation. Calcium, Total, P 8.9 8.8 - 10.2 mg/dL 08/13/2023 5:49 PM CDT [facility] Glucose, P 153(H) 70 - 140 mg/dL 08/13/2023 5:49 PM CDT [facility] Blood (Blood, Venous) 08/13/2023 5:27 PM CDT 08/13/2023 5:31 PM CDT Carlos Alberto Henson M.D. LAB BLOOD ADD-ON Performing Organization Address [facility] [place] [address] * Prothrombin Time (PT) (08/13/2023 5:27 PM CDT) Pathologist [facility] Prothrombin Time, P 12.4 9.4 - 12.5 sec 08/13/2023 5:38 PM CDT [facility] INR 1.1 0.9 - 1.1 08/13/2023 5:38 PM CDT [facility] Comment: ----ADDITIONAL INFORMATION---- Standard intensity warfarin therapeutic range: 2.0 to 3.0 ?? High intensity warfarin therapeutic range: 2.5 to 3.5 Blood (Blood, Venous) 08/13/2023 5:27 PM CDT 08/13/2023 5:31 PM CDT Carlos Alberto Henson M.D. LAB BLOOD ADD-ON Performing Organization Address [facility] [place] [address] * (ABNORMAL) CBC with Differential, Blood (08/13/2023 5:27 PM CDT) Hemoglobin 10.0(L) 13.2 - 16.6 g/dL 08/13/2023 5:33 PM CDT [facility] Hematocrit 32.0(L) 38.3 - 48.6 % 08/13/2023 5:33 PM CDT [facility] Erythrocytes 3.62(L) 4.35 - 5.65 x10(12)/L 08/13/2023 5:33 PM CDT [facility] MCV 88.4 78.2 - 97.9 fL 08/13/2023 5:33 PM CDT [facility] RBC Distrib Width 17.0(H) 11.8 - 14.5 % 08/13/2023 5:33 PM CDT [facility] Platelet Count 289 135 - 317 x10(9)/L 08/13/2023 5:33 PM CDT [facility] Leukocytes 13.1(H) 3.4 - 9.6 x10(9)/L 08/13/2023 5:33 PM CDT [facility] Neutrophils 12.41(H) 1.56 - 6.45 x10(9)/L 08/13/2023 5:33 PM CDT [facility] Lymphocytes 0.21(L) 0.95 - 3.07 x10(9)/L 08/13/2023 5:33 PM CDT [facility] Monocytes 0.48 0.26 - 0.81 x10(9)/L 08/13/2023 5:33 PM CDT [facility] Eosinophils <0.03 0.03 - 0.48 x10(9)/L 08/13/2023 5:33 PM CDT [facility] Basophils <0.03 0.01 - 0.08 x10(9)/L 08/13/2023 5:33 PM CDT [facility] Blood (Blood, Venous) 08/13/2023 5:27 PM CDT 08/13/2023 5:31 PM CDT Carlos Alberto Henson M.D. LAB BLOOD ADD-ON [facility] [address] [place] [address], [facility] STMA [facility] [address] [place] [address] [facility] [address] [place] [address] * (ABNORMAL) Dipstick, Urine (08/13/2023 5:07 PM [...] Carlos Alberto Henson M.D. LAB URINE ORDERABLES [facility] [address] [place], [place] [address] [address] [place] [address] * Osmolality, Urine (08/13/2023 5:07 PM CDT) Pathologist [facility] Osmolality, U 351 150 - 1150 mOsm/kg 08/13/2023 7:46 PM CDT DT Urine 08/13/2023 5:07 PM CDT 08/13/2023 5:45 PM CDT Carlos Alberto Henson M.D. LAB URINE ORDERABLES [facility] [address] [place] [address], [facility] [address] [place] [address] * (ABNORMAL) Microscopic Manual (08/13/2023 5:07 PM CDT) Pathologist [facility] Microscopy Abnormal 08/13/2023 7:57 PM CDT DTL RBC >100(A) <3 /hpf 08/13/2023 7:57 PM CDT DTL Dysmorphic RBC <25 <25 % 08/13/2023 7:57 PM CDT DTL WBC 51-100(A) /hpf 08/13/2023 7:57 PM CDT DTL Comment: ----REFERENCE VALUE---- <4 ??(Males) <11 (Females) Urine 08/13/2023 5:07 PM CDT 08/13/2023 5:45 PM CDT Carlos Alberto Henson M.D. LAB URINE ORDERABLES Performing Organization Address City/[facility]/ZIP Co de Phone Number [facility] [address] [place] [address] * pH, Random, Urine (08/13/2023 5:07 PM CDT) pH, Random, U 7.0 4.5 - 8.0 08/13/2023 7:46 PM CDT DTL Urine 08/13/2023 5:07 PM CDT 08/13/2023 5:45 PM CDT Carlos Alberto Henson M.D. LAB URINE ORDERABLES Performing Organization Address City/[facility]/ZIP Co de Phone Number [facility] [address] [place], [place] [address] [place] [address] * (ABNORMAL) Bacterial Culture, Aerobic + Susceptibility, [...] M.D. LAB MICROBIOLOGY - G ENERAL ORDERABLES [facility] [address] [place] [address], [facility] DTL [facility] [address] [place] [address] * (ABNORMAL) Urinalysis, with Microscopic: Urine, Midstream [...] CDT DTL Predicted 24 [place] [address](H) <229 mg/24 h 08/13/2023 8:50 PM CDT DTL Predicted Range [id number] mg/24 h 08/13/2023 8:50 PM CDT DTL Comment Micro done on <2.5 mL 08/13/2023 7:55 PM CDT DTL Urine (Urine, Midstream) 08/13/2023 5:07 PM CDT 08/13/2023 5:44 PM CDT Carlos Alberto Henson M.D. LAB URINE ORDERABLES [facility] [address] [place] [address], [facility] DTL [facility] [address] [place] [address] * Interpretation of Outside CT Abdomen and [...] atrophy. This is progressed since 2019. Since 2020, interval placement of a right nephro ureteral stent. There is moderate right pelvocaliectasis that is also improved since 2020. The ureter is decompressed. Bilateral perinephric stranding is similar to prior. Slightly increased prominence of the left extrarenal pelvis and ureter. Jon catheter in place. Hyperattenuating debris layering within [...] prominenceof the left extrarenal pelvis and ureter. Jon catheter in place.Hyperattenuating debris layering within the [...] metastatic disease. Carlos Alberto CHOUDHARY CT PROCEDURES documented in this encounter Visit Diagnoses Diagnosis Hematuria- Primary Decline Functional Status [R53.81] Rupture Bladder Spontaneous documented in this encounter Admitting Diagnoses Diagnosis Hematuria documented in this encounter Administered Medications Active Administered Medications - up to 3 most recent administrations Medication Order MAR Action Action Date Dose Rate Site acetaminophen tablet 650 mg (TYLENOL) 650 mg, oral, Every 6 hours, First dose (after last modification) on Tue08/17/23 at 1100 Given 08/18/2023 4:50 AM CDT 650 mg Given 08/17/2023 10:31 PM CDT 650 mg cefTRIAXone in dextrose (iso osm) IVPB 2 g (ROCEPHIN) 2 g, intravenous, at 200 mL/hr, Administer over 15 Minutes, Every 24 hours, First dose on Tue08/15/23 at 2000, Drug Monitoring Program: Pharmacist to adjust medication dosing based on indication and drug clearance factors., Indications: Blood stream infection New Bag 08/17/2023 8:23 PM CDT 2 g 200 mL/hr New Bag 08/16/2023 8:35 PM CDT 2 g 200 mL/hr New Bag 08/15/2023 8:15 PM CDT 2 g 200 mL/hr enzalutamide capsule 120 mg (XTANDI) PATIENT'S OWN MED 120 mg, oral, Daily, First dose (after last modification) on Tue08/17/23 at 1230, Patient may use home supply. 08/17/23: [facility] [id number], filled 07/22/23. HAZARDOUS - Handle with care. Swallow whole. Do NOT crush, chew or open capsule. Given 08/17/2023 2:21 PM CDT 120 mg heparin (porcine) 100 Units/mL in NaCl 0.45% 250 mL infusion 14 Units/kg/hr ? 91.2 kg Dosing weight (12.768 mL/hr, rounded to 12.8 mL/hr), intravenous, Continuous, Starting on Tue08/17/23 at 1715, 25,000 Units in 250 mL, Pharmacist to Dose Intensity Type: Low, aPTT: less than 37: No loading dose; Continue infusion; Increase IV dose by 4 units/kg/hr; Repeat aPTT in 6 hours, aPTT: 37-44: No loading dose; Continue infusion; Increase IV dose by 2 units/kg/hr; Repeat aPTT in 6 hours, aPTT: 45-60: No loading dose; Continue infusion; No change in rate; Repeat heparin aPTT in 6 hours. If 2 consecutive results within therapeutic range, re-check next AM, aPTT: 61-75: No loading dose; Continue infusion; Decrease IV dose by 1 unit/kg/hour; Repeat aPTT in 6 hours, aPTT: 76-90: No loading dose; Stop infusion for 1 hour; Decrease IV dose by 2 units/kg/hr; Repeat aPTT 6 hours after heparin resumed, aPTT: greater than 90: No loading dose; Stop infusion for 2 hours; Decrease IV dose by 4 units/kg/hr; Repeat aPTT 6 hours after heparin resumed Rate/Dose Change 08/17/2023 11:59 PM CDT 14 Units/kg/hr 12.8 mL/hr New Bag 08/17/2023 5:02 PM CDT 12 Units/kg/hr 10.9 mL/h r Lactated Ringer's 20 mL/hr, intravenous, Continuous, Starting on Tue08/15/23 at 1300, PACU & Post-Op New Bag 08/15/2023 2:59 PM CDT 20 mL/hr 20 mL/hr lidocaine 5 % 1 patch (LIDODERM) 1 patch, transdermal, Administer over 12 Hours, Daily, First dose on 08/14/23 at 0900, Remove after 12 hours. Medication Applied 08/16/2023 8:28 AM CDT 1 patch Lower Back metoprolol succinate 24 hr tablet 50 mg (TOPROL-XL) 50 mg, oral, Daily, First dose on 08/13/23 at 1645, Do NOT crush or chew. Given 08/17/2023 8:44 AM CDT 50 mg Given 08/16/2023 8:28 AM CDT 50 mg Given 08/13/2023 5:19 PM CDT 50 mg naloxone injection 0.2 mg (NARCAN) 0.2 mg, intravenous, As needed, respiratory depression, Starting on Tue08/16/23 at 0612, For RASS Score -4 or less, respiratory rate of less than 8 breaths/min. Notify provider/service and rapid response team (if available at institution). ondansetron (PF) injection 4 mg (ZOFRAN) 4 mg, intravenous, Every 6 hours PRN, nausea, vomiting, Starting on Tue08/14/23 at 1014 oxyCODONE IR tablet 2.5 mg (ROXICODONE) 2.5 mg, oral, Every 4 hours PRN, moderate pain or score 4-6 of 10, Starting on Tue08/17/23 at 0601 oxyCODONE IR tablet 5 mg (ROXICODONE) 5 mg, oral, Every 4 hours PRN, severe pain or score 7-10 of 10, Starting on Tue08/17/23 at 0601 rosuvastatin tablet 40 mg (CRESTOR) 40 mg, oral, Daily, First dose on Tue08/16/23 at 0900 Given 08/17/2023 8:44 AM CDT 40 mg Given 08/16/2023 8:28 AM CDT 40 mg tamsulosin 24 hr capsule 0.4 mg (FLOMAX) 0.4 mg, oral, Daily, First dose on Tue08/14/23 at 0900, Swallow whole. Do NOT crush, chew or open capsule. Given 08/17/2023 8:44 AM CDT 0.4 mg Given 08/16/2023 8:28 AM CDT 0.4 mg Given 08/14/2023 9:21 AM CDT 0.4 mg trospium tablet 20 mg (SANCTURA) 20 mg, oral, 2 times daily before breakfast and dinner, First dose on Tue08/16/23 at 0745, Administer with water at least 1 hr prior to meals., Restriction Criteria (Pharmacy will review and approve if criteria met): Use in patients 65 years of age or older Given 08/17/2023 4:33 PM CDT 20 mg Given 08/17/2023 4:56 AM CDT 20 mg Given 08/16/2023 4:23 PM CDT 20 mg Inactive Administered Medications - up to 3 most recent administrations Medication Order MAR Action Action Date Dose Rate Site BUPivacaine PF 0.25 % (2.5 mg/mL) injection (MARCAINE) As needed, Starting on Tue08/15/23 at 1240, Intra-Op Given 08/15/2023 12:40 PM CDT 30 mL Abdominal Tissue methylene blue 0.5 % (5 mg/mL) injection As needed, Starting on Tue08/15/23 at 1218, Intra-Op Given 08/15/2023 12:18 PM CDT 0.5 mL Other documented in this encounter Active and Recently Administered Medications Times are shown in CDT. Scheduled Medication Order 08/16/2023 08/17/2023 08/18/2023 acetaminophen tablet 650 mg (TYLENOL) 650 mg, oral, Every 6 hours, First dose (after last modification) on Tue08/17/23 at 1100 1146 (Not Given - Provider: Jr Samuel R.N. - Reason: Patient/family refused)1642 (Not Given - Provider: Jr Samuel R.N. - Reason: Patient/family refused)2231 (Given - Provider: Lisa Serrano R.N.) 0450 (Given - Provider: Lisa Serrano R.N.)1100 (Due)1700 (Due)2300 (Due) apixaban tablet 2.5 mg (ELIQUIS) (CANCELED) 2.5 mg, oral, 2 times daily, First dose on Tue08/16/23 at 1030 1017 (Given - Provider: Dacia Perez RNarendra)2034 (Given - Provider: Mariam South R.N.) 0844 (Given - Provider: Jr Samuel R.N.) cefTRIAXone in dextrose (iso osm) IVPB 2 g (ROCEPHIN) 2 g, intravenous, at 200 mL/hr, Administer over 15 Minutes, Every 24 hours, First dose on Tue08/15/23 at 2000, Drug Monitoring Program: Pharmacist to adjust medication dosing based on indication and drug clearance factors., Indications: Blood stream infection 2034 (New Bag - Provider: Mariam South R.N.) 2022 (New Bag - Provider: Lisa Serrano R.N.) 1999 (Due) enzalutamide capsule 120 mg (XTANDI) PATIENT'S OWN MED 120 mg, oral, Daily, First dose (after last modification) on Tue08/17/23 at 1230, Patient may use home supply. 08/17/23: Id'ed by [facility] Rx# [id number], filled 07/22/23. HAZARDOUS - Handle with care. Swallow whole. Do NOT crush, chew or open capsule. 1421 (Given - Provider: Jr Samuel R.N.) 0900 (Due) heparin (porcine) injection 5,000 Units (CANCELED) 5,000 Units, subcutaneous, Every 8 hours scheduled, First dose on Tue08/15/23 at 1800 0525 (Given - Provider: Rodrigo Honeycutt R.N.) lidocaine 5 % 1 patch (LIDODERM) 1 patch, transdermal, Administer over 12 Hours, Daily, First dose on 08/14/23 at 0900, Remove after 12 hours. 0828 (Medication Applied - Provider: Dacia Perez R.N.)1999 (Medication Removed - Provider: Mariam South R.N.) 0843 (Not Given - Provider: Jr Samuel R.N. - Reason: Patient/family refused) 0900 (Due) metoprolol succinate 24 hr tablet 50 mg (TOPROL-XL) 50 mg, oral, Daily, First dose on 08/13/23 at 1645, Do NOT crush or chew. 0828 (Given - Provider: Dacia Perez R.N.) 0844 (Given - Provider: Jr Samuel R.N.) 09 (Due) rosuvastatin tablet 40 mg (CRESTOR) 40 mg, oral, Daily, First dose on Tue08/16/23 at 0900 0828 (Given - Provider: Dacia Perez R.N.) 0844 (Given - Provider: Jr Samuel R.N.) 09 (Due) tamsulosin 24 hr capsule 0.4 mg (FLOMAX) 0.4 mg, oral, Daily, First dose on 08/14/23 at 0900, Swallow whole. Do NOT crush, chew or open capsule. 0828 (Given - Provider: Dacia Perez R.N.) 0844 (Given - Provider: Jr Samuel R.N.) 0900 (Due) trospium tablet 20 mg (SANCTURA) 20 mg, oral, 2 times daily before breakfast and dinner, First dose on Tue08/16/23 at 0745, Administer with water at least 1 hr prior to meals., Restriction Criteria (Pharmacy will review and approve if criteria met): Use in patients 65 years of age or older 0858 (Given - Provider: Dacia Perez R.N.)1623 (Given - Provider: Dacia Perez R.N.) 0456 (Given - Provider: Mariam South R.N. - Comment: per pt request)1633 (Given - Provider: Jr Samuel R.N.) 0700 (Due)1600 (Due) Continuous Medication Order 08/16/2023 08/17/2023 08/18/2023 heparin (porcine) 100 Units/mL in NaCl 0.45% 250 mL infusion 14 Units/kg/hr ? 91.2 kg Dosing weight (12.768 mL/hr, rounded to 12.8 mL/hr), intravenous, Continuous, Starting on Tue08/17/23 at 1715, 25,000 Units in 250 mL, Pharmacist to Dose Intensity Type: Low, aPTT: less than 37: No loading dose; Continue infusion; Increase IV dose by 4 units/kg/hr; Repeat aPTT in 6 hours, aPTT: 37-44: No loading dose; Continue infusion; Increase IV dose by 2 units/kg/hr; Repeat aPTT in 6 hours, aPTT: 45-60: No loading dose; Continue infusion; No change in rate; Repeat heparin aPTT in 6 hours. If 2 consecutive results within therapeutic range, re-check next AM, aPTT: 61-75: No loading dose; Continue infusion; Decrease IV dose by 1 unit/kg/hour; Repeat aPTT in 6 hours, aPTT: 76-90: No loading dose; Stop infusion for 1 hour; Decrease IV dose by 2 units/kg/hr; Repeat aPTT 6 hours after heparin resumed, aPTT: greater than 90: No loading dose; Stop infusion for 2 hours; Decrease IV dose by 4 units/kg/hr; Repeat aPTT 6 hours after heparin resumed 1702 (New Bag - Provider: Jr Samuel R.N. - Comment: verified by JAMEL Guevara)1934 (Handoff - Provider: Lisa Serrano R.N. - Comment: Jr Samuel RN)3971 (Rate/Dose Change - Provider: Lisa Serrano R.N.) Lactated Ringer's 20 mL/hr, intravenous, Continuous, Starting on Tue08/15/23 at 1300, PACU & Post-Op Lactated Ringer's (CANCELED) 75 mL/hr, intravenous, Continuous, Starting on Tue08/16/23 at 0630 0729 (New Bag - Provider: Dacia Perez R.N.)1558 (New Bag - Provider: Leonardo Clark R.N.) 0226 (New Bag - Provider: Mariam South R.N.)1620 (Stopped - Provider: Jr Samuel R.N.) PRN Medication Order 08/16/2023 08/17/2023 08/18/2023 acetaminophen tablet 650 mg (TYLENOL) (CANCELED) 650 mg, oral, Every 6 hours PRN, moderate pain or score 4-6 of 10, severe pain or score 7-10 of 10, Starting on Tue08/13/23 at 1725 0457 (Given - Provider: Mariam South R.N.) naloxone injection 0.2 mg (NARCAN) 0.2 mg, intravenous, As needed, respiratory depression, Starting on Tue08/16/23 at 0612, For RASS Score -4 or less, respiratory rate of less than 8 breaths/min. Notify provider/service and rapid response team (if available at institution). ondansetron (PF) injection 4 mg (ZOFRAN) 4 mg, intravenous, Every 6 hours PRN, nausea, vomiting, Starting on Tue08/14/23 at 1014 oxyCODONE IR tablet 2.5 mg (ROXICODONE)(Linked Group 1) 2.5 mg, oral, Every 4 hours PRN, moderate pain or score 4-6 of 10, Starting on Tue08/17/23 at 0601 oxyCODONE IR tablet 5 mg (ROXICODONE)(Linked Group 1) 5 mg, oral, Every 4 hours PRN, severe pain or score 7-10 of 10, Starting on Tue08/17/23 at 600 Linked Groups Order Group 1: oxyCODONE IR tablet 2.5 mg (ROXICODONE)Jump to med 2.5 mg, oral, Every 4 hours PRN, moderate pain or score 4-6 of 10, Starting on Tue08/17/23 at 600 Or oxyCODONE IR tablet 5 mg (ROXICODONE)Jump to med 5 mg, oral, Every 4 hours PRN, severe pain or score 7-10 of 10, Starting on Tue08/17/23 at 600 documented in this encounter Care Teams Pcu Rn Relationship Specialty Start Date End Date Elsewhere, Pcp PCP - General Internal Medicine 08/13/23 documented as of this encounter
--- OUTSIDE RECORDS SUMMARY | 2023-08-18 05:15 | XMS_ITS | Encounter Summary ---
Author Name Unknown Organization [facility] Address [address] [place] [address] Care Team Providers Care Bloom Conveyor Operator Name Role Phone Elsewhere, Pcp Primary Care Provider Unavailabl e Encounter Details Date Type Department Care Team (Late st Contact Info) Description 08/13/2023 4:35 PM CDT Ancillary Procedure Department of Radiology in [place], [place] [address] [place] [address] Carlos Alberto Henson M.D. [address] [place] [address] Social History Tobacco Use Types Packs/Day Years Used Date Smoking Tobacco: Never Smokeless Tobacco: Never [facility] Utilities Answer Date Recorded In the past 12 months has [facility] electric, gas, oil, or water [employer] threatened to shut off services in your [...] your living situation today? [facility] 08/13/2023 Sex and Gender Information Value Date Recorded Sex Assigned at Not on file Gender Identity Not on file Sexual Orientation Not on file documented as of this encounter Plan of Treatment Not on file documented as of this encounter Procedures Procedure Name Priority Date/Time Associated Diagnosis Comments INTERPRETATION OF OUTSIDE CT ABDOMEN AND OR PELVIS RAD - Routine (most inpatients and all outpatients) 08/13/2023 4:46 PM CDT documented in this encounter Results * Interpretation of Outside CT Abdomen and [...] are clear. Procedure Note Killian Montenegro M.B.B.S., MPerla. - 08/13/2023 EXAM: INTERPRETATION OF OUTSIDE CT [...] PROCEDURES documented in this encounter Visit Diagnoses Not on filedocumented in this encounter Care Teams Bloom Conveyor Operator Relationship Specialty Start Date End Date Elsewhere, Pcp PCP - General Internal Medicine 08/13/23 documented as of this encounter
--- OUTSIDE RECORDS SUMMARY | 2023-08-18 05:15 | XMS_ITS | Encounter Summary ---
Author Name Unknown Organization [facility] Address [address] [place] [address] Care Team Providers Care Inspector Glass Or Mirror Name Role Phone Elsewhere, Pcp Primary Care Provider Unavailabl e Encounter Details Date Type Department Care Team (Latest Contact Info) Description 08/13/2023 3:42 PM CDT - Present Hospital Encounter [facility], [facility], Sixth Floor [address] [place] [address] Darnell Garcia M.D. [address] [place] [phone] Boubacar Brock M.D. [address] [place] [phone] Decline Functional Status [R53.81] (Primary Dx) Social History Tobacco Use Types Packs/Day Years Used Date Smoking Tobacco: Never Smokeless Tobacco: Never [facility] Utilities Answer Date Recorded In the past 12 months has [facility] electric, gas, oil, or water company threatened [...] living situation today? I have a [facility] place to live 08/13/2023 Sex and Gender [...] he felt completely obstructed and presented to [place] Course Attempted Jon insertion but bladder irrigation was unsuccessful on multiple attempts. Hung 1U pRBC's. Given some volume and transferred to [facility] ICU ICU Course Urology consulted and [...] recent open bladder surgery. Tayler Greenwood MD, [facility] * Alia Ruelas Pharm.D., R.Ph., BCPS - [...] bleeding after re-initiation we will reengage them. Ndairaalso recommended the patient follow up with his primary ships or barges loader at discharge we will which we will make sure he does. we appreciate their time in reviewing this case. * Chance Cassidy Pharm.D., R.Ph. - 08/17/2023 11:37 AM CDT Images [...] CAPSULE(0.4 MG) BY MOUTH DAILY * Chance Cassidy PharmDayday, R.Ph. - 08/17/2023 11:30 AM CDT Pharmacist [...] home enzalutamide today (own supply). Marie Cassidy, Pharm.D., R.Ph. INPATIENT MED LIST: acetaminophen, 650 mg, [...] PRN Lactated Ringer's Lactated Ringer's * Lisa Seaman O.T., MOT - 08/17/2023 10:47 AM CDT Occupational Therapy [facility] Inpatient Treatment SUBJECTIVE Patient's Name: Kalen Vega Referring/Attending Provider: Boubacar Brock M.D. Reason for Referral: Occupational Therapy Evaluation and Treatment History of Present Illness: Kalen Vega is a 83 y.o. male who was admitted to [facility] in [place] on 08/13/2023 for Hematuria [R31.9]. Precautions Other Precautions: abdominal; fall risk; watch HR Pain Assessment: Pain not reported during session. Subjective Comments: Patient greeted in bed and agreeable to therapy session. Team Communication: The patient's status was discussed and coordination of care occurred with RN OBJECTIVE Vital Signs: Vitals taken during session: Pulse rate: 102-128 bpm Outcome Measures: [facility] Inpatient Short Form: Putting on and taking [...] at or below 17 Clinicians answer the [facility] Inpatient Short Form based on observed patient [...] in place draining clear pink urine I/O ([id number]): NG tube 200 cc Two hundred sixty-five [...] into clot retention and was admitted locallyfor I. He was subsequently transferred to [facility] 08/12 for difficulty irrigating his catheter despite [...] held since 08/11) -discussed with vascular Medicine joannebssylvia 08/15 regarding ongoing anticoagulation/antiplatelet. Theyfelt he no [...] questions or concerns. Pager during business hours: [phone] Pager after hours: [phone] * Audi De Luna P.T., D.P.T. - 08/16/2023 3:05 PM CDT 08/16/23 [id number] Reason Therapy Missed Reason Therapy Missed Receiving [...] in place draining clear pink urine I/O ([id number]): NG tube 200 cc Two hundred sixty-five [...] locallyfor CBI. He was subsequently transferred to [facility] 08/12 for difficulty irrigating his catheter despite [...] stent exchange on 08/14. #Postop -Jon catheter with light pink urine on slow [...] questions or concerns. Pager during business hours: [phone] Pager after hours: [phone] * Paula Hernandez M.D. - 08/15/2023 9:09 AM CDT PROGRESS NOTE: No events. AFVSS. Pain controlled. No flatus. No further emesis overnight. Abdomen more distended than yesterday but remained soft, tender to deep palpation only, no rebound. Twenty-four Somali Alcock three-way catheter remains off CBI, draining [...] for CBI. He was subsequently transferred to [facility] 08/12 for difficulty irrigating his catheter despite [...] above was discussed with Dr. Brock, urology sediment remediation consultant on-call who is in agreement with [...] Family to bring his home enzalutamide from [place] Irvin Franco Pharm.D., R.Ph. * Jakob De Paz M.D. - 08/14/2023 11:34 AM CDT PROGRESS NOTE: No events. AFVSS. Pain controlled. No flatus. Nauseous and had 2 episodes of emesis. Abdomen more distended than yesterday but remained soft, tender to deep palpation only, no rebound. Twenty-four Somali Alcock three-way catheter remains off CBI, draining [...] for CBI. He was subsequently transferred to [facility] 08/12 for difficulty irrigating his catheter despite [...] above was discussed with Dr. Brock, urology sediment remediation consultant on-call who is in agreement with [...] hx of recurrent DVT's, and stents placed 2016 Type and screen CBC q12h -- recheck in afternoon Transfuse Hgb < 7 ACCESS: PIV x2 Date 08/13/23 3-way Jon DISPO Code Status: Full Transfer to floor Family updated on 08/13/[address] Sylvester. Page CCM3 [id number] Carlos Alberto Henson M.D. PGY-1 CCM 3 [...] of care as per CCM3. * Irvin Franco, Pharm.D., R.Ph. - 08/13/2023 3:54 PM CDT [...] who have asked we place a 24 Somali 3-way urinary catheter pending evaluation. We will [...] stent and hematuria who is transferred from [facility] ED with 3 days of hematuria [...] him to present to local hospital in [place]. OSH Course: His hemoglobin was in the [...] Insecurity: No Food Insecurity (02/16/2022) [facility] Food Insecurity Worried About Running Out of Food in the Last Year: 1 Transportation Needs: No Transportation Needs (02/16/2022) [facility] Transportation Needs Lack of Transportation (Medical): 1 Housing Stability: Low Risk (02/16/2022) [facility] Stability Unable to Pay for Housing [...] Dr. Sylvester and Dr. Rodriguez. Page CCM3 [id number] Carlos Alberto Henson M.D. PGY-1 CCM 3 [...] 83 y.o. male who was admitted to [facility] in [place] on 08/13/2023 for Hematuria [R31.9]. Relevant Medical History: Kalen Vega is a 83 y.o. 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 [...] heels well perfused and intact. Outcome Measures: [facility] Inpatient Short Form: -[facility] Basic Mobility (V.2) How much help from [...] 3-5 steps with a railing?: A Lot -[facility] Basic Mobility (V.2) Raw Score: 17 -[facility] Basic Mobility (V.2) Standardized Score: 39.67 Interpretation: Based on scoring guidelines using the raw score value: Those going to home had an average score at or above 18 Those going to facility had an average score at or below 17 Clinicians answer the [facility] Inpatient Short Form based on observed patient [...] following coordination of care occurred with the chip mixer/Caregiver Present: SonFavio Patient was left in bedside [...] will be updated as appropriate. Clinical Impression: Kalne Vega is a 83 y.o. male who was admitted to [facility] in [place] on 08/13/2023 for Hematuria with cystotomy and [...] Min assist for mobility. Required assist for [id number]-[id number] for force generation and is generally standby [...] Ongoing PT Goal #2: Patient will perform tsz-zy-[id number] transfer with modified independence and least restrictive [...] SOPHIA Celestin Associated attestation - Fidencio Caban P.T. D.P.T. - 08/17/2023 5:45 PM CDT This therapist has reviewed all documentation and supervised today???s session. The therapist agrees with the plan developed in collaboration with the patient. * Lisa Seaman O.T., MOT - 08/16/2023 10:01 AM CDT Occupational Therapy [facility] Inpatient Evaluation/Treatment SUBJECTIVE Patient's Name: Kalen Vega Referring/Attending Provider: Boubacar Brock M.D. Reason for Referral: Occupational Therapy Evaluation and Treatment PERTINENT MEDICAL / SURGICAL HISTORY: Kalen Vega has no past medical history on file. Kalen Vega has no past surgical history on file. History of Present Illness: Kalen Veag is a 83 y.o. male who was admitted to [facility] in [place] on 08/13/2023 for Hematuria [R31.9]. Relevant Medical [...] with RN, PT Family/Caregiver Present: Son and [id number]. Home Living and Equipment: Lives with: Spouse/Significant [...] walker, Single point cane Adaptive Equipment Owned: Acid Tester, Long Handled Shoe Horn Other DME Owned: Regular flat bed Prior Level of Function and Mobility: Basic Activities of Daily Living: Independent Instrumental Activities of Daily Living: Required Assistance: Laundry son assists with laundry and cooking Functional Mobility: Independent Driving: Yes Occupational Role: Retired Leisure Interests: watch movies, plays Eqlim train, meets friends for breakfast. Patient/Caregiver Goals: [...] Wears glasses all the time Outcome Measures: AM-PAC Inpatient Short Form: Putting on and taking [...] at or below 17 Clinicians answer the [facility] Inpatient Short Form based on observed patient [...] Lisa Seaman O.T., MOT * Sivakumar Parham L.G.SHilario., M.S.W. - 08/14/2023 9:59 AM CDTAssociated Order(s): [...] all are a great support. 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 Patient expressed understanding and was agreeable to [...] in conversation with his family when social organization professor entered the room. He was engaged in [...] the transition of care/plan: None Shorty Adhikari, M.S.WJonah 08/14/2023 * Sixto Cain M.D. - 08/13/2023 [...] locally at approximately 3:00 a.m. a 22 Somali three-way catheter was placed and CBI wasinitiated. Unfortunately he clotted off the catheter multiple times despite manual irrigations, started to develop hypotension and tachycardia [facility] He relays the above history [...] non-distended, non-peritonitic Extremities: No edema : 22 Somali three-way Jon catheter draining a minimal amount [...] urinary retention Given his non draining 22 Somali three-way catheter the Urology techs and I subsequently exchanged this for a 24 Somali three-way Alcock in the usual sterile fashion. [...] to follow [place] [phone] with questions or concerns Sixto Cain M.D. documented in this encounter Nursing Notes * Jose Haro, M.S.N., R.N. - 08/14/2023 12:23 PM CDT Patient Transfer Note Patient transferred to: [facility] Room: [facility] Accompanied by: JAMEL Garcia Report called? YES [...] current vital signs? YES * Sixto Teague, Trevor.R.T., L.R.T., OPHTHALMOLOGY SURGICAL TECHNICIAN-ACCS - 08/14/2023 7:00 AM CDT Patient is [...] the last 24hours. Sixto Teague R.R.T., L.R.T., OPHTHALMOLOGY SURGICAL TECHNICIAN-ACCS 08/14/23 7:00 AM CDT Electronically signed by Sixto Teague R.R.T., SiddharthaRCarlos, OPHTHALMOLOGY SURGICAL TECHNICIAN-ACCS at 08/14/2023 7:02 AM CDT * Radha Crespo R.R.T., L.R.T. - 08/13/2023 7:09 PM CDT Patient is a 83 y.o. male admitted on 08/13/2023 Shift Summary: Patient remains room air, and no respiratory issues during the day. PLAN OF CARE: RT will continue to assess respiratory status while in the ICU, and provide respiratory care as needed. Oxygen Therapy: $Delivery Method: Room air Principal Problem #1 Hematuria Electronically signed by: Radha Crespo R.R.T., LJonahR.TJonah 08/13/23 7:10 PM CDT documented in this encounter OR Notes * Op Note - Jakob De Paz M.D. - 08/15/2023 9:37 AM CDT Pre-op Diagnosis Rupture Bladder Spontaneous Post-op Diagnosis Rupture Bladder Spontaneous Clinical Liaison A first officer and flight instructor actively participated and was necessary for one [...] the supine flexed position. His existing 24 Somali three-way Jon catheter was noted to be [...] additional tissue for additional coverage. A 24 Somali three-way catheter was placed with 15 cc in the balloon. This irrigated to light clear pink. A 15 Somali YARELI drain wasplaced into the pelvis exiting left lower quadrant. The fascia was closed with interrupted and zcpypi-fs-nljyg 0 PDS. Fat was approximated using 3-0 [...] stent and hematuria who is transferred from [place] ED with 3 days of hematuria & [...] RN, CPN, CCDS, CCS, CRC Clinical Documentation Advisor To Command In Combat Query created by: ELMER Barker, RN, CPN, [...] he felt completely obstructed and presented to [place]. [place] Course Attempted Jon insertion but bladder irrigation was unsuccessful on multiple attempts. Hung 1U pRBC's. Given some volume and transferred to [facility] ICU ICU Course Urology consulted and [...] Type Priority Associated Diagnoses Date/Time Bacteria / Shirin Culture, Blood #1 Microbiology Routine 08/15/2023 3:3 1 AM CDT Bacteria / Shirin Culture, Blood #2 Microbiology Routine 08/15/2023 3:3 [...] status Respiratory Care Routine respirat ory use ihhc-sfbxegisv-vuof reminder at 8am and 8pm until discontinued [...] management can be found on theAskMayoExpert site. [email or web address] Findings discussed with Tayler Greenwood MD ([id number]) on 08/17/2023 7:11 PM. IMPRESSION: 1. Aging, [...] Routine 08/15/2023 3:33 AM CDT BACTERIA / SHIRIN CULTURE, BLOOD [...] Timed 08/14/2023 3:18 AM CDT BACTERIA / SHIRIN CULTURE, BLOOD STAT [...] M.D. LAB BLOOD ADD-ON Performing Organization Address City/[facility]/ZIP Co de Phone Number [facility] [address] [place] [address], [facility] D[facility] [address] [place] [address] * APTT (Activated Partial Thromboplastin Time) (08/17/2023 4:56 PM CDT) Activated Partial Thrombopl Time, P 29 25 - 37 sec 08/17/2023 5:10 PM CDT [facility] Blood (Blood, Venous) 08/17/2023 4:56 PM CDT 08/17/2023 5:00 PM CDT Paula Hernandez M.D. LAB BLOOD ADD-ON Performing Organization Address City/[facility] Co de Phone Number [facility] [address] [place] [address], [facility] STMA [facility] [address] [place] [address] * ECG 12 Lead (08/16/2023 9:43 PM CDT) Ventricular Rate ECG/Min 134 BPM MUSE MD Interval 136 ms MUSE QRSD Interval 76 ms MUSE QT Interval 298 ms MUSE QTC Interval 445 ms MUSE P [place] 29 degrees MUSE R [place] -6 degrees MUSE T Wave [place] 21 degrees MUSE 08/16/2023 9:43 PM CDT [...] CDT Geneva Azar M.D. LAB BLOOD ADD-ON Performing Organization Address City/[facility]/ZIP Co de Phone Number [facility] [address] [place] [address], [facility] D[facility] [address] [place] [address] * (ABNORMAL) Basic Metabolic Panel (08/16/2023 9:40 [...] CDT Geneva Azar M.D. LAB BLOOD ADD-ON [address] [address], [facility] [address] [place] [address] * Transfuse Red Blood Cells : (08/16/2023 12:04 PM CDT) Corin Ring M.D. BLOOD TRANSFUSION OR DERABLES * Transfuse Red Blood Cells : , 1 Units (08/16/2023 12:04 PM CDT) Corin Ring M.D. BLOOD TRANSFUSION OR DERABLES * (ABNORMAL) Basic Metabolic Panel (08/16/2023 3:10 AM CDT) Potassium, S 4.2 3.6 - 5.2 mmol/L [...] CDT Paula Hernandez M.D. LAB BLOOD ADD-ON [facility] [address] [place] [address], [facility] [address] [place] [address] * (ABNORMAL) CBC without Differential (08/16/2023 3:10 [...] CDT Paula Hernandez M.D. LAB BLOOD ADD-ON [facility] - [facility] [address] [place] [address], [facility] [address] [place] [address] * (ABNORMAL) CBC with Differential, Blood (08/15/2023 3:58 PM CDT) Hemoglobin 9.0(L) 13.2 - 16.6 g/dL 08/15/2023 [...] Carlos Alberto Henson M.D. LAB BLOOD ADD-ON [facility] [address] [place] [address], [facility] D[facility] [address] [place] [address] [facility] [address] [place] [address] * DX Abdomen 1 View (08/15/2023 1:19 [...] 08/15/2023 12:03 PM CDT Rae Gonzalez APRN, GROUP ACTIVITIES AIDE, DNAP LAB BLOO D NON ADD-ON Performing Organization Address City/[facility]/ZIP Co de Phone Number [facility] [address] [place] [address] * Lactate, B - Intra-op (08/15/2023 11:56 AM CDT) Lactate, B 1.1 0.5 - 2.2 mmol/L 08/15/2023 12:06 PM CDT STMA Blood (Blood, Venous) 08/15/2023 11:56 AM CDT 08/15/2023 12:03 PM CDT Hayde Song M.D. LAB BLOOD NON ADD-O N [facility] [address] [place] [address] * (ABNORMAL) Glucose, Whole Blood (08/15/2023 11:56 AM CDT) Glucose 144(H) 70 - 140 mg/dL 08/15/2023 12:06 PM CDT STMA Blood (Blood, Arterial Line) 08/15/2023 11:56 AM CDT 08/15/2023 12:03 PM CDT Hayde Song M.D. LAB BLOOD ADD-ON [facility] [address] [place] [address], [facility] [address] [place] [address] * Potassium, Blood (08/15/2023 11:56 AM CDT) Potassium, B 4.3 3.6 - 5.2 mmol/L 08/15/2023 12:07 PM CDT STMA Blood (Blood, Arterial Line) 08/15/2023 11:56 AM CDT 08/15/2023 12:03 PM CDT Hayde Song M.D. LAB BLOOD NON ADD-O N [facility] [address] [place] [address], [facility] [address] [place] [address] * Sodium, B (08/15/2023 11:56 AM CDT) Sodium, B 135 135 - 145 mmol/L 08/15/2023 12:06 PM CDT STMA Blood (Blood, Arterial Line) 08/15/2023 11:56 AM CDT 08/15/2023 12:03 PM CDT Hayde Song M.D. LAB BLOOD NON ADD-O N [facility] [address] [place] [address], [facility] [address] [place] [address] * (ABNORMAL) Calcium, Ionized (08/15/2023 11:56 AM CDT) Calcium, Ionized, B 4.53(L) 4.65 - 5.30 mg/dL 08/15/2023 12:07 PM CDT STMA Blood (Blood, Arterial Line) 08/15/2023 11:56 AM CDT 08/15/2023 12:03 PM CDT Hayde Song M.D. LAB BLOOD NON ADD-O N [facility] [address] [place] [address], [facility] ST[facility] [address] [place] [address] * (ABNORMAL) Blood Gas with Coox, Arterial [...] BLOOD NON ADD-O N Performing Organization Address City/[facility]/ZIP Co de Phone Number [facility] [address] [place], [place] [phone] [place] [address] 200 [place] [address] * FL Fluoro Less Than 1 Hour (08/15/2023 11:22 AM CDT) Narrative 152 HOS LOS RST - 08/15/2023 11:24 AM CDT This exam does not require a radiologist review or interpretation. Please refer to the patient's medical record on this date for clinical details. Boubacar Brock M.D. IMG FLUOROSCOPY PROC EDURES Performing Organization Address City/[facility]/ZIP Co de Phone Number [facility] * Patient Status (08/15/2023 10:28 AM CDT) Temperature 36.1 37.0 deg C 08/15/2023 10:28 AM CDT STMA FIO2 0.55 0.21=AIR 08/15/2023 10:28 AM CDT STMA Blood 08/15/2023 10:2 8 AM CDT 08/15/2023 10:28 AM CDT Rae Gonzalez EXTENSION COURSE COORDINATOR, GROUP ACTIVITIES AIDE, DNAP LAB BLOO D NON ADD-ON Performing Organization Address City/[facility]/ZIP Co de Phone Number [facility] [address] [place], [place] [phone] [place] [address] [address] [place] [address] * Lactate, B - Intra-op (08/15/2023 10:28 AM CDT) Lactate, B 1.1 0.5 - 2.2 mmol/L 08/15/2023 10:30 AM CDT STMA Blood (Blood, Venous) 08/15/2023 10:28 AM CDT 08/15/2023 10:28 AM CDT Hayde Song M.D. LAB BLOOD NON ADD-O N [facility] [address] [place] [address] * Glucose, Whole Blood (08/15/2023 10:28 AM CDT) Glucose 134 70 - 140 mg/dL 08/15/2023 10:30 AM CDT STMA Blood (Blood, Arterial Line) 08/15/2023 10:28 AM CDT 08/15/2023 10:28 AM CDT Hayde Song M.D. LAB BLOOD ADD-ON Performing Organization Address City/[facility]/ZIP Co de Phone Number [facility] [address] [place] [address] * Potassium, Blood (08/15/2023 10:28 AM CDT) Potassium, B 4.1 3.6 - 5.2 mmol/L 08/15/2023 10:31 AM CDT [facility] (Blood, Arterial Line) 08/15/2023 10:28 AM CDT 08/15/2023 10:28 AM CDT Hayde Song M.D. LAB BLOOD NON ADD-O N [facility] [address] [place] [address] * Sodium, B (08/15/2023 10:28 AM CDT) Sodium, B 135 135 - 145 mmol/L 08/15/2023 10:30 AM CDT STMA Blood (Blood, Arterial Line) 08/15/2023 10:28 AM CDT 08/15/2023 10:28 AM CDT Hayde Song M.D. LAB BLOOD NON ADD-O N Performing Organization Address [facility] Co de Phone Number [facility] [address] [place] [address] * (ABNORMAL) Calcium, Ionized (08/15/2023 10:28 AM CDT) Calcium, Ionized, B 4.25(L) 4.65 - 5.30 mg/dL 08/15/2023 10:31 AM CDT STMA Blood (Blood, Arterial Line) 08/15/2023 10:28 AM CDT 08/15/2023 10:28 AM CDT Hayde Song M.D. LAB BLOOD NON ADD-O N Performing Organization Address [facility] Co de Phone Number [facility] [address] [place], [place] [phone] [place] [address] 200 [place] [address] * (ABNORMAL) Blood Gas with Coox, Arterial [...] Song M.D. LAB BLOOD NON ADD-O N [facility] [address] [place] [address], [facility] [address] [place] [address] * (ABNORMAL) Basic Metabolic Panel (08/15/2023 3:31 AM CDT) Pathologist [facility] Potassium, S 4.0 3.6 - 5.2 mmol/L [...] Jakob De Paz M.D. LAB BLOOD ADD-ON [facility] [address] [place] [address], [facility] D[facility] [address] [place] [address] * (ABNORMAL) CBC with Differential, Blood (08/15/2023 [...] Carlos Alberto Henson M.D. LAB BLOOD ADD-ON [facility] [address] [place] [address], [facility] D[facility] [address] [place] [address] [address] * (ABNORMAL) CBC with Differential, Blood (08/14/2023 8:08 PM CDT) [facility] Hemoglobin 9.8(L) 13.2 - 16.6 g/dL 08/14/2023 [...] Carlos Alberto Henson M.D. LAB BLOOD ADD-ON [facility] [place] [address] [place] [address], [facility] ST[facility] [address] [place] [address] [facility] [address] [place] [address] * Transfuse Red Blood Cells : , [...] with Differential, Blood (08/14/2023 3:18 AM CDT) [facility] Hemoglobin 7.6(L) 13.2 - 16.6 g/dL 08/14/2023 [...] Carlos Alberto Henson M.D. LAB BLOOD ADD-ON [facility] [address] [place] [address], [facility] [address] [place] [address] [facility] [address] [place] [address] * (ABNORMAL) Basic Metabolic Panel (08/14/2023 3:18 AM CDT) Potassium, S 5.4(H) 3.6 - 5.2 mmol/L [...] Carlos Alberto Henson M.D. LAB BLOOD ADD-ON [facility] [place] [address] [place] [address], [facility] DTL [facility] [address] [place] [address] * Type and Screen (with Reflex Antibody ID) (08/13/2023 7:35 PM CDT) ABORh O Pos Not applicable 08/13/2023 7:58 PM CDT STRM Antibody Screen Negative Negative 08/13/2023 8:13 PM CDT STRM Type & Screen Expiration 08/16/2023 23:59 08/13/2023 7:58 PM CDT STRM Testing Location [place] DEFAULT 08/13/2023 7:39 PM CDT STRM Blood (Blood, Venous) 08/13/2023 7:35 PM CDT 08/13/2023 7:39 PM CDT Carlos Alberto Henson M.D. LAB BLOOD BANK TEST ORDERABLES Performing Organization Address [facility] Co de Phone Number [facility] [place] [address] STRM [facility] [address] [place] [address] * (ABNORMAL) Bacteria / Shirin Culture, Blood #1 (08/13/2023 7:35 PM CDT) Bacteria/Cand jessica Culture, Blood ESCHERICHIA COLI Growth after 11 Hours (A) 08/16/2023 11:17 AM CDT DTL Comment: 3 of 3 Bottles, Susceptibilities performed on another specimen [id number] Blood (Blood, Peripheral Draw) 08/13/2023 7:35 PM CDT 08/13/2023 8:15 PM CDT Comment:Specimen Source Site : Blood Carlos Alberto Henson M.D. LAB MICROBIOLOGY - G ENERAL ORDERABLES Performing Organization Address [facility] Co de Phone Number [facility] [address] [place] [address], [facility] D[facility] [address] [place] [address] * ECG 12 Lead (08/13/2023 7:02 PM CDT) Ventricular Rate ECG/Min 128 BPM MUSE MD Interval 138 ms MUSE QRSD Interval 64 ms MUSE QT Interval 304 ms MUSE QTC Interval 443 ms MUSE P [place] 45 degrees MUSE R [place] 34 degrees MUSE T Wave [place] 46 degrees MUSE 08/13/2023 7:02 PM CDT [...] IMG CT PROCEDURES * (ABNORMAL) Bacteria / Shirin Culture, Blood #2 (08/13/2023 5:27 PM CDT) Bacteria/Cand jessica Culture, Blood ESCHERICHIA COLI Growth after 11 Hours (A) 08/16/2023 11:17 AM CDT DTL Comment: 2 of 2 Bottles, Critical Result. Blood (Blood, Peripheral Draw) 08/13/2023 5:27 PM CDT 08/13/2023 5:44 PM CDT Comment:Specimen Source Site : Blood Narrative [facility] - 08/16/2023 11:17 AM CDT Received Bactec [...] <=1 mcg/mL: Susceptible Escherichia coli Meropenem SUSCEPTIBILITY, LAYO (MCG/ML) <=0.25 mcg/mL: Susceptible Escherichia coli Tobramycin [...] - G ENERAL ORDERABLES Performing Organization Address City/[facility]/ZIP Co de Phone Number [facility] [address] [place] [address] * Magnesium (08/13/2023 5:27 PM CDT) Magnesium, S 1.9 1.7 - 2.3 mg/dL 08/13/2023 6:12 PM CDT DT Blood (Blood, Venous) 08/13/2023 5:27 PM CDT 08/13/2023 5:58 PM CDT Carlos Alberto Henson M.D. LAB BLOOD ADD-ON [facility] [address] [place], [place] [address] [place] [address] * (ABNORMAL) Hepatic Function Panel (08/13/2023 5:27 [...] Carlos Alberto Henson M.D. LAB BLOOD ADD-ON [facility] [place] [address] [place] [address], [facility] [address] [place] [address] * (ABNORMAL) Basic Metabolic Panel (08/13/2023 5:27 [...] 27(L) >=60 mL/min/BSA 08/13/2023 5:49 PM CDT STMA Comment: Estimated GFR calculated using the 2020 CKD_EPI creatinine equation. Calcium, Total, P 8.9 8.8 - 10.2 mg/dL 08/13/2023 5:49 PM CDT STMA Glucose, P 153(H) 70 - 140 mg/dL 08/13/2023 5:49 PM CDT [facility]MA Blood (Blood, Venous) 08/13/2023 5:27 PM CDT 08/13/2023 5:31 PM CDT Carlos Alberto Henson M.D. LAB BLOOD ADD-ON Performing Organization Address [facility] Co de Phone Number [facility] [address] [place] [address] * Prothrombin Time (PT) (08/13/2023 5:27 PM CDT) Pathologist [facility] Prothrombin Time, P 12.4 9.4 - 12.5 [...] M.D. LAB BLOOD ADD-ON Performing Organization Address [facility]/ZIP Co de Phone Number [facility] [address] [place], [place] [phone] [place] [address] STMA [facility] [address] * (ABNORMAL) CBC with Differential, Blood (08/13/2023 [...] Carlos Alberto Henson M.D. LAB BLOOD ADD-ON [facility] [address] [place] [address], [facility] [address] [place] [address] [facility] [address] [place] [address] * (ABNORMAL) Dipstick, Urine (08/13/2023 5:07 PM [...] M.D. LAB URINE ORDERABLES Performing Organization Address [facility]/ZIP Co de Phone Number [facility] [address] [place] [address], [facility] [address] [place] [address] * Osmolality, Urine (08/13/2023 5:07 PM CDT) Osmolality, U 351 150 - 1150 mOsm/kg 08/13/2023 7:46 PM CDT DTL Urine 08/13/2023 5:07 PM CDT 08/13/2023 5:45 PM CDT Carlos Alberto Henson M.D. LAB URINE ORDERABLES Performing Organization Address [facility]/ZIP Co de Phone Number [facility] [address] [place] [address], [facility] [address] [place] [address] * (ABNORMAL) Microscopic Manual (08/13/2023 5:07 PM [...] M.D. LAB URINE ORDERABLES Performing Organization Address [facility]/ZIP Co de Phone Number [facility] [address] [place], [place] [address] [address] * pH, Random, Urine (08/13/2023 5:07 PM CDT) pH, Random, U 7.0 4.5 - 8.0 08/13/2023 7:46 PM CDT DTL Urine 08/13/2023 5:07 PM CDT 08/13/2023 5:45 PM CDT Carlos Alberto Henson M.D. LAB URINE ORDERABLES [facility] [address] [place] [address], [address] [address] * (ABNORMAL) Bacterial Culture, Aerobic + Susceptibility, [...] - G ENERAL ORDERABLES Performing Organization Address [facility]/ZIP Co de Phone Number [facility] [address] [place] [address], [facility] D[facility] [address] [place] [address] * (ABNORMAL) Urinalysis, with Microscopic: Urine, Midstream [...] CDT DTL Predicted 24 [place] [address](H) <229 mg/24 h 08/13/2023 8:50 PM CDT DTL Predicted Range 20926-215666 mg/24 h 08/13/2023 8:50 PM CDT DTL Comment Micro done on <2.5 mL 08/13/2023 7:55 PM CDT DTL Urine (Urine, Midstream) 08/13/2023 5:07 PM CDT 08/13/2023 5:44 PM CDT Carlos Alberto Henson M.D. LAB URINE ORDERABLES Performing Organization Address [facility]/ZIP Co de Phone Number [facility] [address] [place] [address], [place] DTL [facility] [address] [place] [address] * Interpretation of Outside CT Abdomen and [...] Diagnosis Hematuria- Primary Decline Functional Status [R53.81] documented in this encounter Admitting Diagnoses Diagnosis [...] use home supply. 08/17/23: [facility] Rx# [id number], filled 07/22/23. HAZARDOUS - Handle with care. [...] over 12 Hours, Daily, First dose on Tue08/14/23 at 0900, Remove after 12 hours. Medication Applied 08/16/2023 8:28 AM CDT 1 patch Lower Back metoprolol succinate 24 hr tablet 50 mg (TOPROL-XL) 50 mg, oral, Daily, First dose on Sat /4/24 at 1645, Do NOT crush or chew. [...] Action Date Dose Rate Site acetaminophen tablet 1,000 mg (TYLENOL) 1,000 mg, oral, Once, On Tue08/15/23 at 0800, For 1 dose, Pre-Op Given 08/15/2023 7:56 AM CDT 1,000 mg acetaminophen tablet 650 mg (TYLENOL) 650 mg, oral, Every 6 hours PRN, moderate pain or score 4-6 of 10, severe pain or score 7-10 of 10, Starting on Tue08/13/23 at 1725 Given 08/17/2023 4:57 AM CDT 650 mg Given 08/15/2023 2:03 AM CDT 650 mg apixaban tablet 2.5 mg (ELIQUIS) 2.5 mg, oral, 2 times daily, First dose on Tue08/16/23 at 1030 Given 08/17/2023 8:44 AM CDT 2.5 mg Given 08/16/2023 8:35 PM CDT 2.5 mg Given 08/16/2023 10:17 AM CDT 2.5 mg aprepitant capsule 40 mg (EMEND) 40 mg, oral, Once, On Tue08/15/23 at 0800, For 1 dose, Pre-Op, Restriction Criteria (Pharmacy will review and approve if criteria met): Patient does not have IV access and cannot receive fosaprepitant IV Given 08/15/2023 7:56 AM CDT 40 mg cefTRIAXone in dextrose (iso osm) IVPB 2 g (ROCEPHIN) 2 g, intravenous, at 200 mL/hr, Administer over 15 Minutes, Once, On 08/13/23 at 1730, For 1 dose, Drug Monitoring Program: Pharmacist to adjust medication dosing based on indication and drug clearance factors., Indications: Lower UTI, catheter New Bag 08/13/2023 7:48 PM CDT 2 g 200 mL/hr cefTRIAXone in dextrose (iso osm) IVPB 2 g (ROCEPHIN) 2 g, intravenous, at 200 mL/hr, Administer over 15 Minutes, Once, On 08/14/23 at 2000, For 1 dose, Drug Monitoring Program: Pharmacist to adjust medication dosing based on indication and drug clearance factors., Indications: Blood stream infection New Bag 08/14/2023 8:15 PM CDT 2 g 200 mL/hr heparin (porcine) injection 5,000 Units 5,000 Units, subcutaneous, Every 8 hours scheduled, First dose on 08/15/23 at 1800 Given 08/16/2023 5:25 AM CDT 5,000 Units Left Upper Arm (Back) Given 08/15/2023 6:03 PM CDT 5,000 Units L eft Upper Arm (Back) iohexol dilution solution 7,500 mg (OMNIPAQUE) 7,500 mg, intravesical, Once in imaging, contrast, Starting on 08/13/23 at 1743, For 1 dose, Imaging Protocol Orders, Dose of 7,500 mg iodine will display as 25 mL of 300 mg iodine/mL contrast for billing. Mix iohexol 300 (Omnipaque?? 300) 25 mL with 250 mL NaCl 0.9% for a total volume of 275 mLs. Procedure requires 2 bags (i.e. 2 orders). Given 08/13/2023 5:47 PM CDT 7,500 mg iohexol dilution solution 7,500 mg (OMNIPAQUE) 7,500 mg, intravesical, Once in imaging, contrast, Starting on 08/13/23 at 1809, For 1 dose, Dose of 7,500 mg iodine will display as 25 mL of 300 mg iodine/mL contrast for billing. Mix iohexol 300 (Omnipaque?? 300) 25 mL with 250 mL NaCl 0.9% for a total volume of 275 mLs. Procedure requires 2 bags (i.e. 2 orders). Given 08/13/2023 6:30 PM CDT 7,500 mg Lactated Ringer's 75 mL/hr, intravenous, Continuous, Starting on Tue08/16/23 at 0630 New Bag 08/17/2023 2:26 AM CDT 75 mL/hr 75 mL/hr New Bag 08/16/2023 3:58 PM CDT 75 mL/hr 75 mL/hr New Bag 08/16/2023 7:29 AM CDT 75 mL/hr 75 mL/hr metoprolol tablet 25 mg (LOPRESSOR) 25 mg, oral, Once, On 08/15/23 at 0845, For 1 dose, Pre-Op Given 08/15/2023 8:18 AM CDT 25 mg NaCl 0.9 % bolus 1,000 mL 1,000 mL, intravenous, at 1,000 mL/hr, Administer over 1 Hours, Once, On 08/13/23 at 1830, For 1 dose New Bag 08/13/2023 6:59 PM CDT 1,000 mL 1000 mL/hr NaCl 0.9 % bolus 1,000 mL 1,000 mL, intravenous, at 500 mL/hr, Administer over 2 Hours, Once, On 08/13/23 at 2315, For 1 dose New Bag 08/13/2023 11:06 PM CDT 1,000 mL 500 mL/hr NaCl 0.9 % irrigation solution 3,000 mL 3,000 mL, irrigation, Continuous, Starting on 08/13/23 at 1700, FOR BLADDER IRRIGATION ONLY, NOT FOR IV USE New Bag 08/13/2023 5:11 PM CDT 3,000 mL NaCl 0.9 % irrigation solution 3,000 mL 3,000 mL, irrigation, Continuous, Starting on 08/13/23 at 1700, FOR BLADDER IRRIGATION ONLY, NOT FOR IV USE New Bag 08/13/2023 5:20 PM CDT 3,000 mL ondansetron (PF) injection 4 mg (ZOFRAN) 4 mg, intravenous, Once, On 08/14/23 at 0030, For 1 dose Given 08/14/2023 12:36 AM CDT 4 mg oxyCODONE IR tablet 5 mg (ROXICODONE) 5 mg, oral, Once as needed, moderate pain or score 4-6 of 10, severe pain or score 7-10 of 10, Starting on 08/15/23 at 0749, For 1 dose, Pre-Op Given 08/15/2023 7:57 AM CDT 5 mg solifenacin tablet 5 mg (VESICARE) 5 mg, oral, Daily, First dose on 08/14/23 at 0900, mirabegron 50 mg daily was interchanged for solifenacin 5 mg oral daily See tube feeding guidelines for tube feeding administration instructions. Given 08/14/2023 9:22 AM CDT 5 mg documented in this encounter Active and Recently [...] 1030 1017 (Given - Provider: Dacia Perez R.N.)2034 (Given - Provider: Mariam South R.N.) 0844 [...] use home supply. 08/17/23: [facility] Rx# [id number], filled 07/22/23. HAZARDOUS - Handle with care. Swallow whole. Do NOT crush, chew or open capsule. 1421 (Given - Provider: Jr Samuel R.N.) 0900 (Due) heparin (porcine) injection 5,000 Units (CANCELED) 5,000 Units, subcutaneous, Every 8 hours scheduled, First dose on Tue08/15/23 at 1800 0525 (Given - Provider: Mayur SerraNJonah) lidocaine 5 % 1 patch (LIDODERM) 1 patch, transdermal, Administer over 12 Hours, Daily, First dose on Tue08/14/23 at 0900, Remove after 12 hours. 0828 (Medication Applied - Provider: Dacia Perez R.N.)1999 (Medication Removed - Provider: Mariam South R.N.) 0843 (Not Given - Provider: Jr Samuel R.N. - Reason: Patient/family refused) 0900 (Due) metoprolol succinate 24 hr tablet 50 mg (TOPROL-XL) 50 mg, oral, Daily, First dose on Tue08/13/23 at 1645, Do NOT crush or chew. 0828 (Given - Provider: Dacia Perez R.N.) 0844 (Given - Provider: Jr Samuel R.N.) 0900 (Due) rosuvastatin tablet 40 mg (CRESTOR) 40 mg, oral, Daily, First dose on Tue08/16/23 at 0900 0828 (Given - Provider: Dacia Perez R.N.) 0844 (Given - Provider: Jr Samuel R.N.) 0900 (Due) tamsulosin 24 hr capsule 0.4 mg [...] Samuel R.N. - Comment: verified by JAMEL Guevara)193 (Handoff - Provider: Lisa Serrano R.N. - Comment: Jr Samuel RN)0559 (Rate/Dose Change - Provider: Lisa Serrano R.N.) [...] of 10, Starting on Tue08/17/23 at 0601 Linked Groups Order Group 1: oxyCODONE IR tablet 2.5 mg (ROXICODONE)Jump to med 2.5 mg, oral, Every 4 hours PRN, moderate pain or score 4-6 of 10, Starting on Tue08/17/23 at 0601 Or oxyCODONE IR tablet 5 mg (ROXICODONE)Jump to med 5 mg, oral, Every 4 hours PRN, severe pain or score 7-10 of 10, Starting on Tue08/17/23 at 0601 documented in this encounter Care Teams Inspector Glass Or Mirror Relationship Specialty Start Date End Date Elsewhere, Pcp PCP - General Internal Medicine 08/13/23 documented as of this encounter
--- OUTSIDE RECORDS SUMMARY | 2023-08-18 05:16 | XMS_ITS | Continuity of Care Document ---
Author Name Unknown Address [address] [place] [address] Phone [phone] Organization [facility] Address [address] [place] [address] Care Team Providers Care Primary Teaching Assistant Name Role Phone MASOUD SAUER Primary Care Provider [phone] Assessment No assessment recorded. Plan of Treatment Reminders Order Date Submit Date Provider Last Modified By Organization Details Last Modified Time Details Appointments None recorded . Lab urinalys is, dipstick 2023 024 [email or web address] [facility], [address], [place], [address], 4 15:08:54 culture, urine 2023 024 [facility], [address], [place], [address], 4 10:11:11 Referral None recorded . Procedures None recorded . Surgeries None recorded . Imaging None recorded . Medication Orders Bactrim DS 800 mg-160 mg tablet 2023 024 [email or web address] [id number], [address] [place], [place], [id number], 4 16:19:28 Patient TargetsNo targets recorded. Patient InstructionsNo instructions recorded. Reason for Referral None Reported. Results Created Date Observation Date Name Description Value Unit Range Abnormal Flag LastModifiedBy Organization Detail LastModifiedTime 06/23/1906/23/2023 urina lysis , dipst ick Color-Status Red Not Available [facility] [address], [place], [address], 06/23/2023 15:08:10 06/23/19 24 06/23/2023 urina lysis , dipst ick pH-Status 7.5 Not Available [facility] [address], [place], [address], 06/23/2023 15:08:10 06/23/19 24 06/23/2023 urina lysis , dipst ick Protein-Stat us >=9.0 Not Available [facility] [address], [place], [address], 06/23/2023 15:08:10 06/23/19 24 06/23/2023 urina lysis , dipst ick Nitrates-Sta tus negati ve Not Available [facility] [address], [place], [address], 06/23/2023 15:08:10 06/23/19 24 06/23/2023 urina lysis , dipst ick Blood-Status Large Not Available [facility] [address], [place], [address], 06/23/2023 15:08:10 06/23/19 24 06/23/2023 urina lysis , dipst ick Leuko-Status Negati ve Not Available [facility] [address], [place], [address], 06/23/2023 15:08:10 06/23/19 24 06/23/2023 urina lysis , dipst ick Specimen Type Voided Not Available [facility] [address], [place], [address], 06/23/2023 15:08:10 07/04/19 24 07/01/2023 CT, abdom en + pelvi s, w/o contr ast No observ ation record ed. [email or web address] [facility] [address], [place], [address], 07/04/2023 08:51:59 07/18/19 24 07/18/2023 XR, kidne y + urete r + bladd er No observ ation record ed. [email or web address] [facility] [address], [place], [address], 07/22/2023 15:56:19 Result Notes None recorded. Procedures Surgical History Date Name Laterality Status Provider Name and Address Organization Details Recorded Time Bladder Scan completed Rabia Ferrell [facility] 06/23/2023 15:08:00 Cystoscopy completed Nicola Ware MD [address] [place] [address],[address], [address], [facility] 12/30/2021 17:11:17 Colonoscopy completed Nicola Ware MD [address] [place] [address],[facility] [address], [address], [facility] 12/30/2021 17:11:22 Imaging Results None recorded. Procedure [...] COLONOSCO PY PREP [employer]I ONS RECEIVED FROM [facility] active Not Available Not Available No t Available furosemide 20 mg tablet TAKE 1 TABLET BY MOUTH DAILY active Not Available Not Available No t Available cefuroxime axetil 500 mg tablet active Not Available Not Available No t Available polyethylen e glycol 3350 17 gram/dose oral powder MIX AND DRINK DIRECTED IN [employer]Y [employer] ONS RECEIVED FROM [facility] active Not Available Not Available No [...] Smoking Status Never Smoker Nicola Ware MD [address] [place] [address],[address], [place], [address], [facility] 12/30/2021 17:11:00 What Is Your Level [...] Encounter Closed Date Diagnosis/Indication Diagnosis SNOMED-CT Code [id number] Nicola Ware MD [facility] [address] [place] [address] 06/23/2023 14:16:52 06/24/2023 08:40:38 Blood in urine [id number] Health Concerns Section Related Observation LastModified by Organization Detai ls LastModified Time None Recorded Concern Status LastModified by Organization Details LastModified Time None Recorded Payers Encounter Date Sequence Insurance Name Policy Number Policy Krishnan Covered Member ID Krishnan Member ID Guarantor Name 06/23/2023 1 [employer] (MEDICARE REPLACEMENT/ ADVANTAGE - PPO) [id number] José Miguel Vega [id number] José Miguel Vega Notes Date Note Type Note Provider Name and Address Organization Details Recorded Time 06/23/2023 text/html HPI Notes: 83 Y male here after calling triage this AM with hematuria/pain with urination. Patient has stent in place, last exchange 02/08/2022. 06/23/23 visit completed by Curry Ware MD [address] [place] [address],[address], [address], [facility] [place] [facility] 06/23/2023 16:19:33
--- OUTSIDE RECORDS SUMMARY | 2023-08-18 05:16 | XMS_ITS | Clinical Summary ---
Author Name Unknown Organization [facility] Address [place], [place] [address] Care Team Providers Care Fabric And Textile Factory Worker Name Role Phone Cesar Mccollum MD Primary Care Provider Nicola Mcgarry MD Unavailable [phone] Mireya Tan MD Unavailable [phone] Allergies No known active allergies Medications [...] type, unspecified whether angina present, unspecified whether ewiiaapaayp or transplanted heart Take 1 Tablet (75 [...] type, unspecified whether angina present, unspecified whether ewiiaapaayp or transplanted heart Take 1 Tablet (75 mg) by mouth every morning. 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 MRB=424.87 Bladder mass 02/29/2020 04/30/2020 Hematuria 02/29/2020 03/05/2020 Acute deep vein thrombosis (DVT) 02/29/2020 11/20/2020 S/P coronary angioplasty 11/03/2016 Chest pain 09/15/2016 03/05/2020 Elevated prostate specific antigen (PSA) 10/06/2010 03/05/2020 Hip arthritis 10/06/2010 03/05/2020 Colon polyp 07/15/2010 PATRICE (acute kidney injury) Obstructive uropathy 020 Encounters Date Type Department Care Team Description 08/04/2023 11:30 AM CDT Office Visit [facility] [address] [place] [address] Sandip Garcia, [facility] 08/04/2023 Travel 08/02/2023 2:30 PM CDT Orders Only [facility] [address] [place] [address] Lab, [place] [facility] 08/02/2023 Travel 08/02/2023 Orders Only [facility] [address] [facility] [address] Cesar Mccollum MD <No scans attached> 07/21/2023 8:55 AM CDT Office Visit [facility] [address] [place] [address] Cesar Mccollum MD Medicare ANNUAL (subsequent) Visit (83 year old); Post Procedure (Uteretal stent exchange) 07/21/2023 Travel 07/18/2023 10:00 AM CDT Anesthesia Event [facility] [address] [place] [address] Leonardo Frankel MD Purdy Fred Krueger, MOTOR COACH TOUR OPERATOR 07/18/2023 9:45 AM CDT - 07/18/2023 10:54 AM CDT Surgery [facility] [address] [place] [address] Nicola Mcgarry MD CYSTOSCOPY EXCHANGE, RIGHT URETERAL STENT 07/18/2023 7:41 AM CDT - 07/18/2023 3:26 PM CDT Hospital Encounter [facility] [address] [place] [address] Nicola Mcgarry MD Other hydronephrosis (Primary Dx) Discharge Disposition: Home Self Care 07/18/2023 Travel 07/15/2023 8:20 AM CDT Preop Visit [facility] [address] [place] [address] Shannan Bain, Pre-Op Exam (/BLADDER SURGERY [facility] DR. MCGARRY 07/18/23) 07/15/2023 Travel 07/11/2023 Orders Only [facility] Scanner 1 scan: (1-Ord) [facility] REPORT, 07/11/2023 07/06/2023 Telephone [facility] [address] [place] [address] Cesar Mccollum MD Follow Up 07/05/2023 4:00 PM CDT Orders Only [facility] [address] [place] [address] Lab, [place] 07/05/2023 Travel 07/05/2023 Orders Only [facility] [address] [place] [address] Cesar Mccollum MD <No scans attached> 07/01/2023 8:30 AM CDT Ancillary Procedure [facility] [address] [place] [address] 07/01/2023 Travel 06/25/2023 Orders Only [facility] Scanner 1 scan: (1-Ord) [facility], 06/25/2023 06/23/2023 Transcribe Orders [facility] [address] [place] [address] Nicola Mcgarry MD from Last 3 Months Immunizations Name Administration Dates Next Due COVID-19 Vaccine Spikevax (M oderna 50mcg/0.5mL) 12YO+ 4550-6031 Formula PF 07/21/2023,03/08/2023 COVID-19 vaccine (Education EverytimeBio NTech 30mcg/0.3mL) 12YO+ BIVALENT PF, MDV 09/13/2022,01/28/2022 [...] Description 10/04/2023 1:00 PM CDT Office Visit 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 Supervisor [employer] Device Identifier Shelf Expiration Date Model / Serial / Lot Stent Uret [id number] Contour - [id number] Implanted:Qty: 1 on 07/18/2023 by Nicola Mcgarry MD at [facility] Right: Ureter [facility] [place] [facility] 02/27/2026 [id number] / / [id number] Procedures Procedure Name Priority Date/Time Associated Diagnosis [...] - 17.5 g/dL 08/02/2023 2:31 PM CDT [facility] MCV 89 80 - 100 fL 08/02/2023 2:31 PM CDT [facility] Blood BLOOD SPECIMEN / Unknown Venipuncture / Unknown 08/02/2023 2:26 PM CDT 08/02/2023 2:26 PM CDT Cesar Mccollum MD HEMATOLOGY Performing Organization Address [facility]/[place] [address], * HEMOGLOBIN A1C SCREENING (07/21/2023 9:58 AM CDT) Pathologist [facility] HEMOGLOBIN A1C SCREENING 5.4 <=6.4 % 07/21/2023 5:56 PM CDT [facility] Blood BLOOD SPECIMEN / Unknown Venipuncture / Unknown 07/21/2023 9:58 AM CDT 07/21/2023 10:00 AM CDT Narrative [facility] - 07/21/2023 5:56 PM CDT ? (<5.7%) ?Normal ? (5.7% to 6.4%) ? Indicates prediabetes ? (>=6.5%) ? Confirms diabetes Falsely low levels may be seen with: Recent Transfusion, Recent Significant Blood Loss, Hemolytic Diseases, or Falsely elevated levels may be seen with: Untreated Anemias, Splenectomy Cesar Mccollum MD CHEMISTRY [facility] [address] [place] [address], * XR RETROGRADE PYELOGRAM W/WO KUB (07/18/2023 [...] mmol/L 07/15/2023 5:14 PM CDT [facility] POTASSIUM 4.7 3.5 - 5.1 mmol/L 07/15/2023 5:14 PM CDT [facility] CHLORIDE 106 98 - 107 mmol/L 07/15/2023 5:14 PM CDT [facility] CO2,TOTAL 24 22 - 29 mmol/L 07/15/2023 5:14 PM CDT [facility] ANION GAP 11 5 - 18 07/15/2023 5:14 PM CDT [facility] GLUCOSE 91 70 - 99 mg/dL 07/15/2023 5:14 PM CDT [facility] CALCIUM 9.3 8.8 - 10.2 mg/dL 07/15/2023 5:14 PM CDT [facility] BUN 22 8 - 23 mg/dL 07/15/2023 5:14 PM CDT [facility] CREATININE 1.32(H) 0.70 - 1.20 mg/dL 07/15/2023 5:14 PM CDT [facility] BUN/CREAT RATIO 17 10 - 20 5:14 PM CDT [facility] eGFR 53(L) >90 mL/min/1.7 3m2 07/15/2023 5:14 PM CDT [facility] Comment:As of 2021, eG FR is calculated by the CKD-EPI creatinine equation without race adjustment. ??eGFR can be influenced by muscle mass, exercise, and diet. ??The reported eGFR is an estimation only and is only applicable if the renal function is stable. Blood BLOOD SPECIMEN / Unknown Venipuncture / Unknown 07/15/2023 9:40 AM CDT 07/15/2023 9:40 AM CDT Shannan Bian DO CHEMISTRY [facility] [address] 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 [phone] Surgery - Urology 03/13/20 Mireya Tan MD [address] [facility] [place] [phone] Hematology - Pathology 03/13/20
--- OUTSIDE RECORDS SUMMARY | 2023-08-18 05:16 | XMS_ITS | Encounter Summary ---
Author Name Unknown Organization [facility] Address [address] [place] [address] Care Team Providers Care Tsa Screener Name Role Phone Elsewhere, Pcp Primary Care Provider Unavailabl e Encounter Details Date Type Department Care Team (Latest Contact Info) Description 08/13/2023 Intake [facility] Social History Tobacco Use Types Packs/Day Years Used Date Smoking Tobacco: Never Smokeless Tobacco: Never [facility] Utilities Answer Date Recorded In the past 12 months has [facility] electric, gas, oil, or water company threatened [...] your living situation today? I have a [facility] place to live 08/13/2023 Sex and Gender Information Value Date Recorded Sex Assigned at Not on file Gender Identity Not on file Sexual Orientation Not on file documented as of this encounter Plan of Treatment Not on file documented as of this encounter Visit Diagnoses Not on filedocumented in this encounter Care Teams Tsa Screener Relationship Specialty Start Date End Date Elsewhere, Pcp PCP - General Internal Medicine 08/13/23 documented as of this encounter
--- OUTSIDE RECORDS SUMMARY | 2023-08-18 05:16 | XMS_ITS | Data Portability ---
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 Plan of Treatment Reminders Order Date Submit Date Provider Last Modified By Organization Details Last Modified Time Details Appointments None recorded . Lab urinalys is, dipstick 2023 024 [email or web address] [facility], [address] [place], [address], 15:08:54 culture, urine 2023 024 [facility], [address], [place], [address], 4 10:11:11 Referral None recorded . Procedures None recorded . Surgeries cystosco py with ureteral stent exchange (SURG) 2021 022 [email or web address] Not available 15:46:30 cystosco py with ureteral stent exchange (SURG) 2021 022 [email or web address] Not available 16:50:47 Imaging None recorded . Medication Orders Bactrim DS 800 mg-160 mg tablet 2023 024 [email or web address] [id number], [address] [place], [place], [phone], 4 16:19:28 Myrbetri q 50 mg tablet,e xtended release 2021 022 [facility][id number], [address] , [place], [place], [phone], 17:50:02 Patient TargetsNo targets recorded. Patient InstructionsNo instructions recorded. Reason for Referral None Reported. Results Created Date Observation Date Name Description Value Unit Range Abnormal Flag LastModifiedBy Organization Detail LastModifiedTime 06/23/1906/23/2023 URINE CULTU RE final report microb iology result s Not Available [facility] [address], [place], [address], 06/25/2023 10:11:11 06/23/19 24 06/23/2023 urina lysis , dipst ick Color-Status Red Not Available [facility] [address], [place], [address], 06/23/2023 15:08:10 06/23/19 24 06/23/2023 urina lysis , dipst ick pH-Status 7.5 Not Available [facility] [address], [place], [address], 06/23/2023 15:08:10 06/23/19 24 06/23/2023 urina lysis , dipst ick Protein-Stat us >=9.0 Not Available [facility] [address], [place], [address], 06/23/2023 15:08:10 06/23/1906/23/2023 urina lysis , dipst ick Nitrates-Sta tus negati ve Not Available [facility] [address], [place], [address], 06/23/2023 15:08:10 06/23/19 24 06/23/2023 urina lysis , dipst ick Blood-Status Large Not Available [facility] [address], [place], [address], 06/23/2023 15:08:10 06/23/19 24 06/23/2023 urina lysis , dipst ick Leuko-Status Negati ve Not Available [facility] [address], [place], [address], 06/23/2023 15:08:10 06/23/19 24 06/23/2023 urina lysis , dipst ick Specimen Type Voided Not Available [facility] [address], [place], [address], 06/23/2023 15:08:10 03/04/20 20 03/03/2020 NM, bone scan, whole body No observ ation record ed. [email or web address] [facility] [address], [place], [address], 03/11/2020 18:09:57 07/04/19 24 07/01/2023 CT, abdom en + pelvi s, w/o contr ast No observ ation record ed. [email or web address] [facility] [address], [place], [address], 07/04/2023 08:51:59 07/18/19 24 07/18/2023 XR, kidne y + urete r + bladd er No observ ation record ed. [email or web address] [facility] [address], [place], [address], 07/22/2023 15:56:19 Result Notes None recorded. Procedures Surgical History Date Name Laterality Status Provider Name and Address Organization Details Recorded Time Bladder Scan completed Rabia matthews, [facility] 06/23/2023 15:08:00 Cystoscopy completed Nicola Ware MD [address] [place] [address],[address], [place], [address], [facility] 12/30/2021 17:11:17 Colonoscopy completed Nicola Ware MD [address], [place], [address], [facility] 12/30/2021 17:11:22 Imaging Results Imaging Date Name Status LastModified by Organiz ation Details LastModified Time 03/03/2020 NM, bone scan, whole body completed [email or web address] [facility] [address], [place], [address], 03/11/2020 18:09:57 07/01/2023 CT, abdomen + pelvis, w/o contrast active [email or web address] [facility] [address], [place], [address], 07/04/2023 08:51:59 07/18/2023 XR, kidney + ureter + bladder completed [email or web address] [facility] [address], [place], [address], 07/22/2023 15:56:19 Procedure Notes None recorded. Medical [...] COLONOSCO PY PREP INSTRUCTI ONS RECEIVED FROM [facility] active Not Available Not Available No t Available furosemide 20 mg tablet TAKE 1 TABLET BY MOUTH DAILY active Not Available Not Available No t Available cefuroxime axetil 500 mg tablet active Not Available Not Available No t Available polyethylen e glycol 3350 17 gram/dose oral powder MIX AND DRINK DIRECTED IN COLONOSCO PY PREP INSTRUCTI ONS RECEIVED FROM [facility] active Not Available Not Available No t [...] Updated DateTime 12/30/2021 177.8 cm 27.4 kg/m2 66469.14 g Nicola Ware MD [address], [address] 12/30/2021 17:10:12 Date Recorded Body height Body mass index (BMI) Body weight Provider Name and Address Organization Details Last Updated DateTime 03/12/2022 177.8 cm 27.4 kg/m2 15107.14 g Rabia Ferrell [facility] 03/12/2022 13:55:47 Social History Question Answer Notes LastModified by Organizat ion Details LastModified Time Tobacco Smoking Status Never Smoker Nicola Ware MD [address] [place] [address],[address], [address], [facility] 12/30/2021 17:11:00 What Is Your Level [...] Encounter Closed Date Diagnosis/Indication Diagnosis SNOMED-CT Code [id number] Nicola Ware MD [facility] [address] [place] [address] 12/30/2021 16:01:19 01/01/2022 09:36:50 Increased frequency of urination 524727375 Malignant tumor of prostate 254276641 Hydronephrosis 78270730 [id number] Aliza Hoyte [facility] [address] [place] [address] 03/12/2022 13:13:50 03/15/2022 14:00:47 Increased frequency of urination 221655800 Malignant tumor of prostate 486243413 Hydronephrosis 72452057 [id number] Nicola Ware MD [facility] [address] [place] [address] 06/23/2023 14:16:52 06/24/2023 08:40:38 Blood in urine 56642741 Health Concerns Section Related Observation LastModified by Organization Detai ls LastModified Time None Recorded Concern Status LastModified by Organization Details LastModified Time None Recorded Advance Directives Directive None Recorded Payers Encounter Date Sequence Insurance Name Policy Number Policy Krishnan Covered Member ID Krishnan Member ID Guarantor Name 06/23/2023 1 [employer] (MEDICARE REPLACEMENT/ ADVANTAGE - PPO) [id number] José Miguel D Braucher [id number] José Miguel D Braucher 03/12/2022 1 [employer] (MEDICARE REPLACEMENT/ ADVANTAGE - PPO) [id number] José Miguel D Braucher [id number] José Miguel D Braucher 12/30/2021 1 [employer] (MEDICARE REPLACEMENT/ ADVANTAGE - PPO) [id number] José Miguel D Braucher [id number] José Miguel D Braucher Notes Date Note Type Note Provider Name and Address Organization Details Recorded Time 12/30/2021 text/html HPI Notes: Excer pt from hospital consultation... 81 y.o. year old male who was admitted to [facility] for gross hematuria & CT findings. Onset [...] of the history. Nicola Ware MD [address], [place], [address], [facility] 12/30/2021 23:07:10 03/12/2022 text/html HPI Notes: Excer pt from hospital consultation... 81 y.o. year old male who was admitted to [facility] for gross hematuria & CT findings. Onset [...] some of the history. Nicola Ware MD [address] [place] [address],[address], [address], [facility] 03/12/2022 17:21:47 06/23/2023 text/html HPI Notes: 83 Y male here after calling triage this AM with hematuria/pain with urination. Patient has stent in place, last exchange 02/08/2022. 06/23/23 visit completed by Curry Ware MD [address] [place] [address],[address], [place], [address], [facility] 06/23/2023 16:19:33
== END 2023-08-13 14:19 | disposition home or self-care (01) ==
LOC: AMB 08-18 05:12
PROVIDERS: PCP Family Medicine; Visit Provider Family Medicine
DX: R33.9 Retention of urine, unspecified (principal); R31.9 Hematuria, unspecified
CPT/HCPCS: A0425; A0434

== ENCOUNTER 2023-08-29 11:29 | Emergency (ER) | payer MEDICARE, OTHER, SELFPAY ==
[2023-08-29 11:30] VITALS: BP 126/83; PULSE 108; RESP 18; TEMP 36.4; O2SAT 97; BMI 27.9
--- NOTE | 2023-08-29 11:37 | ED.GENADULT ---
HPI - General Adult General Time Seen by Provider: 11:37 Date Seen: 08/29/23 Chief complaint: Urogenital Problems, Male Stated complaint: catheter coming/post op bladder surgery Time Seen by Provider: 08/29/23 11:32 Source: patient and RN notes reviewed Mode of arrival: ambulatory Limitations: no limitations History of Present Illness HPI narrative: This patient is coming in with his son with concerns of his jon catheter being pulled out accidentally this am. He was transferred to [place] emergently on 08/13/23 with hypotension, urinary hemorrhage in the setting of history of metastatic prostate cancer. His son notes that he was found to have a hole in his bladder which they surgically repaired. His postoperative course was complicated by bowel obstruction requiring NG tube. This did reportedly have to replaced a second time for recurrent symptoms. He notes after the second NG tube, started having left pain, he points to the top part of his neck on the left side. Today is a bit better, has been using cough drops. Did review with him that Cepacol lozenges may help. He feels he has had decreased oral intake and difficulty taking fluids due to this pain. He was just discharged from the hospital this Tuesday, today is Tuesday. He is on Xarelto, did not take his morning dose. He believes he may have sat on the catheter wrong this morning, started to note bleeding around the catheter at the penis. He has had intermittently light blood to heavier looking bloody urine. The urologist told them to expect this for about 6-8 weeks. He did get a transfusion on Tuesday before discharge. States he had 4 or 5 units of blood while he was hospitalized. Denies any abdominal pain, no pain through the penis with the catheter at this time. Related Data Home Medications Medication Instructions Recorded Confirmed amlodipine 10 mg tablet 10 mg PO DAILY 10/20/21 06/28/23 calcium carbonate 600 mg-vitamin 1 cap PO BID 10/20/21 06/28/23 D3 10 mcg (400 unit) capsule metoprolol succinate 50 mg 50 mg PO DAILY 10/20/21 06/28/23 tablet,extended release 24 hr mirabegron 25 mg tablet,extended 50 mg PO Q24H 10/20/21 06/28/23 release 24 hr (Myrbetriq) nitroglycerin 0.4 mg sublingual 0.4 mg sublingual Q5-15M PRN 10/20/21 06/28/23 tablet tamsulosin 0.4 mg capsule 0.4 mg PO Q24H 10/20/21 06/28/23 clopidogrel 75 mg tablet (Plavix) 75 mg PO QDAY 11/24/22 06/28/23 coenzyme Q10 100 mg capsule 100 mg PO QDAY 11/24/22 06/28/23 rosuvastatin 40 mg tablet 40 mg PO QDAY 11/24/22 06/28/23 cholecalciferol (vitamin D3) 50 50 mcg PO DAILY 12/08/22 06/28/23 mcg (2,000 unit) tablet (Vitamin D3) Previous Rx's Medication Instructions Recorded enzalutamide 40 mg capsule (Xtandi) 120 mg (3 x 40 mg) PO QDAY #90 caps 01/24/23 iron,carbonyl 65 mg-vitamin C 125 1 tab PO QDAY #120 tabs 05/30/23 mg tablet,delayed release (Vitron-C) rivaroxaban 10 mg tablet (Xarelto) 10 mg PO QDAY #90 tabs 05/30/23 Allergies Allergy/AdvReac Type Severity Reaction Status Date / Time No Known Drug Allergies Allergy Verified 06/28/23 14:11 Review of Systems Status of ROS: Reports: 6 or more systems reviewed and unremarkable except as noted in History and below [facility] Medical History Health care directive on file ?Z78.9 - Other specified health status (ICD-10) Synovial cyst of knee ?M71.20 - Synovial cyst of popliteal space [Lambert], unspecified knee (ICD-10) Elevated international normalized ratio (INR) ?R79.1 - Abnormal coagulation profile (ICD-10) Effusion of right knee ?M25.461 - Effusion, right knee (ICD-10) Edema of right lower extremity ?R60.0 - Localized edema (ICD-10) Encounter for counseling regarding advance directives (08/19/05) ?Z71.89 - Other specified counseling (ICD-10) Adenocarcinoma of prostate (2019) ?C61 - Malignant neoplasm of prostate (ICD-10) 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 ?I82.423 - Acute embolism and thrombosis of iliac vein, bilateral (ICD-10) HTN (hypertension) ?I10 - Essential (primary) hypertension (ICD-10) CAD (coronary artery disease) ?I25.10 - Atherosclerotic heart disease of [place] coronary artery without angina pectoris (ICD-10) Surgical History Status post hip replacement ?Z96.649 - Presence of unspecified artificial hip joint (ICD-10) Status post cystoscopy with ureteral stent placement ?Z96.0 - Presence of urogenital implants (ICD-10) S/P radiation therapy > 12 wks ago ?Z92.3 - Personal history of irradiation (ICD-10) Social History Smoking Status: Never smoker Do you use any of these nicotine containing products: None Second hand tobacco smoke exposure: No How often do you have a drink containing alcohol: never How often do you have six or more drinks on one occasion: Less than monthly AUDIT-C Alcohol total score: 1 Non-prescribed substance use: denies use service: No Exam Const: Vital Signs, click to edit/add: Vital Signs - 24 hr 08/29/23 11:30 08/29/23 12:00 Temperature 97.5 F L Pulse Rate [Pulse Oximeter] 108 H Respiratory Rate 18 Blood Pressure [Ri ght Upper Arm] 126/83 Pulse Oximetry 97 98 Oxygen Delivery Me thod Room Air Patient is alert, interactive, no apparent distress. Looks mildly pale but speak in complete sentences, face atraumatic, sclera clear with conjugate gaze. Lungs are clear, good air entry. CV regular rate and rhythm, no murmur. Abdomen is soft, nontender, nondistended. He has infraumbilical surgical scar with rayshawn which looks to be clean and dry, no evidence of any infection or drainage. Jon catheter is coming out penis, do see some blood along his left leg, his leg securing device has blood on it. Oropharynx was visualize, see no traumatic change. Believe the area that is bothering him is a little further down in his throat than what I can visualize. Neck is supple, no adenopathy or masses. Documenting provider has reviewed patient's vital signs: yes Course Course ED Course: Reviewed with patient and his son that we will initiate some IV fluids due to his poor oral intake. Will check a CBC and some basic labs. They are happy with that plan. He will have his catheter evaluated, nursing staff will see if it looks like it is in place or can be flushed. We did discuss that sometimes clots conform causing malfunction of the catheter. He is not having any pain. If the balloon were pulling out, would think he would have some increased pain. Reevaluation(s) Time of Reevaluation #1: 12:54 Reevaluation #1: Nursing staff did clean the patient up, was easily able to irrigate 50 mL without any pain or complications. He has ongoing return of dark or bloody urine, no evidence of any clots. Did review with him that his hemoglobin is 10.6, they are happy to hear this number, sounds like it is higher than what it has been. He actually feels a bit better after the L of IV fluids. Did review with them that if his left sided sore throat is not improving, the do need to have this further evaluated an on potentially see ENT to visualize the area. It sounds like it is higher up and not lower where he would need an EGD. Overall, he feels like it is maybe a bit better today so hopefully this will continue to improve. Vital Signs Vital signs: Initial Vital Signs Temperature 97.5 F L 08/29/23 11:30 Temperature Source Temporal Artery Scan 08/29/23 11:30 Pulse Rate 108 H 08/29/23 11:30 Pulse Rhythm Regular 08/29/23 11:30 Respiratory Rate 18 08/29/23 11:30 Blood Pressure 126/83 08/29/23 11:30 Blood Pressure Mean 97 08/29/23 11:30 Blood Pressure Position Supine 08/29/23 11:30 Pulse Oximetry 97 08/29/23 11:30 Oxygen Delivery Method Room Air 08/29/23 11:30 Vital Signs Temperature 97.5 F L 08/29/23 11:30 Pulse Rate 108 H 08/29/23 11:30 Respiratory Rate 18 08/29/23 11:30 Blood Pressure 126/83 08/29/23 11:30 Pulse Oximetry 97 08/29/23 11:30 Oxygen Delivery Method Room Air 08/29/23 11:30 Temperature 97.5 F L 08/29/23 11:30 Pulse Rate 108 H 08/29/23 11:30 Respiratory Rate 18 08/29/23 11:30 Blood Pressure 126/83 08/29/23 11:30 Pulse Oximetry 98 08/29/23 12:00 Oxygen Delivery Method Room Air 08/29/23 11:30 Medications Administered Medications: Generic Name Dose Route Start Last Admin Trade Name Freq PRN Reason Stop Dose Admin Sodium Chloride 1,000 mls @ 500 mls/hr 08/29/23 11:38 08/29/23 11:55 0.9 % Sodium Chloride 1000 Ml IV 08/29/23 13:37 500 mls/hr .Q2H MICKEY Administration Medical Decision Making Lab Data Labs: Lab Results 08/29/23 Range/Units 11:55 WBC 7.48 (4.50-11.00) K/uL RBC 3.80 L (4.30-5.90) m/uL Hgb 10.6 L (13.5-17.5) gm/dL Hct 34.0 L (37.0-53.0) % MCV 90 (80-100) fL MCH 28 (26-34) pg MCHC 31 L (32-36) gm/dL RDW Coeff of Herson 16.9 H (11.5-15.5) % Plt Count 369 (140-440) K/uL Neut % (Auto) 82.5 H (42.0-72.0) % Lymph % (Auto) 6.3 L (20-44) % [place] % (Auto) 10.3 (0.0-11.0) % Eos % (Auto) 0.8 (0.0-7.0) % Baso % (Auto) 0.0 (0.0-3.0) % Neut # (Auto) 6.20 (1.7-7.0) K/uL Lymph # (Auto) 0.50 L (0.90-2.90) K/uL [place] # (Auto) 0.80 (0.00-0.90) K/UL Eos # (Auto) 0.06 (0.00-0.50) K/uL Baso # (Auto) 0.00 (0.00-0.30) K/uL Abs Immat Gran (auto) 0.01 (0.00-0.30) K/uL Imm/Tot Granulo (auto) 0.1 % Sodium 137 (135-149) mmol/L Potassium 3.7 (3.6-5.1) mmol/L Chloride 110 (96-114) mmol/L Carbon Dioxide 22 (20-32) mmol/L Anion Gap 5 L (7-15) mEq/L BUN 18 (7-30) mg/dL Creatinine 1.0 (0.5-1.5) mg/dL Estimated Creat Clear 58.57 Estimated GFR 74 ml/min Glucose 123 H (60-115) mg/dL Lactate 1.9 (0.5-1.9) mmol/L Calcium 7.7 L (8.4-10.6) mg/dL Discharge Plan Discharge Clinical Impression: Complication of Jon catheter Qualifiers: Encounter type: initial encounter Qualified Code(s): T83.9XXA - Unspecified complication of genitourinary prosthetic device, implant and graft, initial encounter Patient Disposition: Home, Self-Care Condition: Stable Instructions: Jon Catheter Placement and Care (ED) Additional Instructions: Continue to follow your postoperative instructions as per [place]. If you have complications where the catheter is not draining, certainly do need re-evaluation. Please contact your surgeon if you have any postsurgical questions or concerns. Continue your current medications, do not recommend any changes to these at this time. Prescriptions: No Action clopidogrel [Plavix] 75 mg tablet 75 mg PO QDAY coenzyme Q10 100 mg capsule 100 mg PO QDAY rosuvastatin 40 mg tablet 40 mg PO QDAY Xtandi 40 mg capsule 120 mg PO QDAY Qty: 90 11RF metoprolol succinate 50 mg tablet extended release 24 hr 50 mg PO DAILY tamsulosin 0.4 mg capsule 0.4 mg PO Q24H amlodipine 10 mg tablet 10 mg PO DAILY Myrbetriq 25 mg tablet extended release 24 hr 50 mg PO Q24H calcium carbonate-vitamin D3 600 mg-10 mcg (400 unit) capsule 1 cap PO BID Patient Comments: with meals nitroglycerin 0.4 mg tablet, sublingual 0.4 mg sublingual Q5-15M PRN Rx Instructions: do not exceed 3 doses per episode cholecalciferol (vitamin D3) [Vitamin D3] 50 mcg (2,000 unit) tablet 50 mcg PO DAILY Xarelto 10 mg tablet 10 mg PO QDAY Qty: 90 2RF Hold Instructions: Doctor's Order Vitron-C 65 mg iron- 125 mg tablet,delayed release (DR/EC) 1 tab PO QDAY Qty: 120 3RF Follow Up/Referrals: Cesar Mccollum MD [Primary Care Provider] - Stand Alone Forms: Proenza Schouer Info Instructions
--- OUTSIDE RECORDS SUMMARY | 2023-08-29 11:53 | XMS_ITS | Clinical Summary ---
Author Name Unknown Organization [facility] Address [address] [place] [address] Care Team Providers Care Designer Architect Name Role Phone Elsewhere, Pcp Primary Care Provider Unavailabl e Source Comments Patient records contain information from all sites at [facility]. For routine questions regarding patient records, call [phone] during business hours, M-F 8:00 AM - 5:00 PM Central Time. Record requests for emergency care only can be directed to [phone] at any time.[facility] Allergies No known active allergies Medications Medication Sig Dispensed Refills Start Date End Date Status amLODIPine (NORVASC) 10 mg tablet Take 10 mg by mouth daily. 0 Active clopidogreL (PLAVIX) 75 mg tablet Take 75 mg by mouth daily. 0 Active metoprolol succinate (TOPROL-XL) 50 mg 24 hr tablet Take 50 mg by mouth daily. 0 Active nitroglycerin (NITROSTAT) 0.[address] 0.4 mg under the tongue. 0 Active tamsulosin (FLOMAX) 0.4 mg 24 hr capsule TAKE 1 CAPSULE(0.4 MG) BY MOUTH DAILY 30 capsule 1 Active enzalutamide (XTANDI) 40 mg capsule Take 120 mg by mouth daily. Take with or without food at the same time each day. Swallow it whole. Active iron,carbonyl-v itamin C (VITRON-C) 65 mg iron- [address] tablet Take 65 mg of iron by mouth daily. Do not crush or chew. Active coenzyme Q10 (CO Q-10) 200 mg capsule Take 200 mg by mouth daily. Active cholecalciferol (Vitamin D3) 50 mcg (2,000 Unit) tablet Take 50 mcg by mouth daily. Active rosuvastatin (CRESTOR) 40 mg tablet Take 40 mg by mouth daily. Active mirabegron (MYRBETRIQ) 50 mg 24 hr tablet Take 50 mg by mouth daily. Active Xarelto 10 mg tablet Take 10 mg by mouth daily. Active cefdinir (OMNICEF) 300 mg capsule Take 1 capsule (300 mg total) by mouth 2 (two) times a day before breakfast and dinner for 2 days. Then take 1 capsule 2 times a day before breakfast and dinner for 3 days the day before, day of, day after catheter removal. 10 capsule 4 08/31/19 24 Active trospium (SANCTURA) 20 mg tablet Take 1 tablet (20 mg total) by mouth 2 (two) times a day as needed (bladder spasms). please stop 24 hours prior to catheter removal 20 tablet 4 Active bacitracin 500 unit/gram ointment Apply 1 Application topically 4 (four) times a day as needed (catheter irritaiton). Apply to tip of penis as needed for catheter irritation. 30 g 4 Active atorvastatin (LIPITOR) 40 mg tablet TK 1 T PO QHS 0 08/14/19 24 Discontinued bicalutamide (CASODEX) 50 mg tablet TK 1 T PO D 0 08/14/19 [address] aspirin [address] tablet Take 81 mg by mouth daily. 08/14/19 24 Discontinued cefdinir (OMNICEF) 300 mg capsule Take 1 capsule (300 mg total) by mouth 2 (two) times a day before breakfast and dinner for 3 days. Please take day before, day of, day after catheter removal 6 capsule 4 08/26/19 24 Discontinued(Dup licate order) Active Problems Problem Noted Date Diagnosed Date Hematuria 08/13/2023 Lymphedema 03/21/2020 Primary Malignant Neoplasm Of Prostate 0 Cancer Staging:Clinical stage from 03/03/2020:Stage IVB(cT4, cN1, pM1b, PSA: 161.9) - Signed by Tereso Frazier M.D. on 03/21/2020 Encounters Date Type Department Care Team Description 08/26/2023 Orders Only Department of Urology in [place], [place] [address] [place] [phone] Paula Hernandez M.D. 08/23/2023 12:45 AM CDT Ancillary Procedure Department of Nursing 08/15/2023 8:30 AM CDT Anesthesia Event [facility] [address] [place] [phone] Hayde Song M.D. 08/15/2023 7:55 AM CDT - 08/15/2023 11:23 AM CDT Surgery [facility] [address] [place] [phone] Boubacar Brock M.D. Palliative EXPLORATORY LAPAROTOMY, CYSTOTOMY CLOSURE, RIGHT URETERAL STENT EXCHANGE 08/13/2023 4:35 PM CDT Ancillary Procedure Department of Radiology in [place], [place] [address] [place] [phone] Carlos Alberto Henson M.D. 08/13/2023 3:42 PM CDT - 08/26/2023 4:11 PM CDT Hospital Encounter [facility], Sixth Floor [address] [place] [phone] Darnell Garcia M.D. Chow, George K, M.D. Decline Functional Status [R53.81] (Primary Dx); Hematuria [R31.9] Discharge Disposition: Home or Self Care 08/13/2023 Intake [facility] from Last 3 Months Social History Tobacco Use Types Packs/Day Years Used Date Smoking Tobacco: Never Smokeless Tobacco: Never Tobacco Cessation:Counseling Given: Not Answered [facility] Utilities Answer Date Recorded In the past 12 months has e [place], gas, oil, or water [employer] threatened to shut off services in your [...] your living situation today? I have a [facility] place to live 08/13/2023 Sex and Gender Information Value Date Recorded Sex Assigned at Not on file Gender Identity Not on file Sexual Orientation Not on file Last Filed Vital Signs Vital Sign Reading Time Taken Comments Blood Pressure 142/70 08/26/2023 2:43 PM CDT Pulse 83 08/26/2023 2:43 PM CDT Temperature 37.1 ??C (98.8 ??F) 08/26/2023 2:43 PM CD T Respiratory Rate 16 08/26/2023 2:43 PM CDT Oxygen Saturation 97% 08/26/2023 2:43 PM CDT Inhaled Oxygen Concentration - - Weight 92.4 kg (203 lb 11.3 oz) 024 10:48 AM CDT Height 180 cm (5' 10.87) 08/25/2023 10 :40 AM CDT Body Mass Index 28.52 08/25/2023 10:40 AM CDT Plan of Treatment Upcoming Encounters Date Type Department Care Team (Late st Contact Info) Description 09/07/2023 11:00 AM CDT Procedure visit Department of Urology in [place], [place] [address] [place] [address] Sima Venegas M.D. [address] [place] [address] Health Maintenance Due Date Last Done Comments Zoster Vaccines (1 of 2) 1989 Depression Screening (Annual PHQ-2) 04/11/2023 Fall Risk Screen (Annual) 04/11/2023 DTaP,Tdap,and Td Vaccines (2 - Td or Tdap) 09/07/2026 09/07/2016 Influenza Vaccine Completed 03/08/2023, 01/28/2022 COVID-19 Vaccine Completed 07/21/2023, , 09/13/2022, Additional history exists Pneumococcal vaccine (65+ years) Completed 07/21/19 24 Medical Devices Implanted Type Area Geotechnical Operating Engineer Device Identifier Shelf Expiration Date Model / Serial / Lot Clp Hrzn Ti 6 Clp Lg Orng - [id number] Implanted:Qt y: 1 on 08/15/2023 by Boubacar Brock M.D. at [facility] Hardware e.g. pins/screws /rods Abdomen Teleflex Bloc [id number] 02/29/2028828329 / / [id number] Clp Hrzn Ti 6 Clp Lg Orng - [id number] Implanted:Qt y: 1 on 08/15/2023 by Boubacar Brock M.D. at [facility] Hardware e.g. pins/screws /rods Abdomen Teleflex Bloc [id number] 02/29/2028 [id number] / / [id number] 4 Clp Hrzn Ti 6 Clp Md Monty - [id number] Implanted:Qt y: 1 on 08/15/2023 by Boubacar Brock M.D. at [facility] Hardware e.g. pins/screws /rods Abdomen [employer] [id number] 03/13/2028 [id number] / / [id number] 1 Clp Hrzn Ti 6 Clp Monty - [id number] Implanted:Qt y: 1 on 08/15/2023 by Boubacar Brock M.D. at [facility] Hardware e.g. pins/screws /rods Abdomen [employer] [id number] 03/21/2028 [id number] / / [id number] 3 Stnt Uret Inl 6fx24 - [id number] Implanted:Qt y: 1 on 08/15/2023 by Jakob De Paz M.D. at [facility] Ureteral Stent N/A: Ureter C.[employer].Bard [id number] 11/18/2027 [id number] / / [id number] Procedures Procedure Name Priority Date/Time Associated Diagnosis Comments IR PICC LINE REMOVAL RAD - Routine (most inpatients and all outpatients) 08/26/2023 11:50 AM CDT TRANSFUSE RED BLOOD CELLS Routine 08/26/2023 11:10 AM CDT TRANSFUSE RED BLOOD CELLS Routine 08/26/2023 8:22 AM CDT PREPARE RED BLOOD CELLS Routine 08/26/2023 6:50 AM CDT PREPARE RED BLOOD CELLS Routine 08/26/2023 6:50 AM CDT TYPE AND SCREEN Routine 08/26/2023 6:50 AM CDT MAGNESIUM, S Routine 08/26/2023 3:20 AM CDT RENAL FUNCTION PANEL, S Routine 08/26/2023 3:20 AM CDT HEPARIN LEVEL ANTI-XA ASSAY, P Routine 08/26/2023 3:20 AM CDT CBC WITHOUT DIFFERENTIAL, B Routine 08/26/2023 3:20 AM CDT RENAL FUNCTION PANEL, S Routine 08/25/2023 3:24 AM CDT MAGNESIUM, S Routine 08/25/2023 3:24 AM CDT HEPARIN LEVEL ANTI-XA ASSAY, P Routine 08/25/2023 3:24 AM CDT CBC WITHOUT DIFFERENTIAL, B Routine 08/25/2023 3:24 AM CDT MAGNESIUM, S Timed 08/24/2023 5:28 AM CDT RENAL FUNCTION PANEL, S Timed 08/24/2023 5:28 AM CDT HEPARIN LEVEL ANTI-XA ASSAY, P Routine 08/24/2023 5:28 AM CDT CBC WITHOUT DIFFERENTIAL, B Routine 08/24/2023 5:28 AM CDT POTASSIUM, S/P Routine 08/23/2023 9:58 PM CDT PHOSPHORUS (INORGANIC), S Routine 08/23/2023 9:58 PM CDT HEPARIN LEVEL ANTI-XA ASSAY, P Timed 08/23/2023 11:37 AM CDT TRIGLYCERIDES, S Routine 08/23/2023 3:42 AM CDT MAGNESIUM, S Routine 08/23/2023 3:42 AM CDT RENAL FUNCTION PANEL, S Routine 08/23/2023 3:42 AM CDT CBC WITHOUT DIFFERENTIAL, B Routine 08/23/2023 3:42 AM CDT HEPARIN LEVEL ANTI-XA ASSAY, P Routine 08/23/2023 3:41 AM CDT NURSING IMAGE EXAM Routine 08/23/2023 12:44 AM CDT GLUCOSE POCT, B Routine 08/22/2023 11:38 PM CDT HEPARIN LEVEL ANTI-XA ASSAY, P Timed 08/22/2023 10:[address] ABDOMEN PELVIS WITHOUT IV CONTRAST RAD - Routine (most inpatients and all outpatients) 08/22/2023 7:19 PM CDT HEPARIN LEVEL ANTI-XA ASSAY, P Timed 08/22/2023 3:43 PM CDT CREATININE, BODY FLUID Routine 08/22/2023 3:30 PM CDT TRANSFUSE RED BLOOD CELLS Routine 08/22/2023 9:41 AM CDT IR PICC LINE PLACEMENT RAD - Routine (most inpatients and all outpatients) 08/22/2023 8:35 AM CDT CBC WITHOUT DIFFERENTIAL, B STAT 08/22/2023 3:27 AM CDT PREPARE RED BLOOD CELLS Routine 08/22/2023 2:55 AM CDT TYPE AND SCREEN Routine 08/22/2023 2:55 AM CDT COMPREHENSIVE METABOLIC PANEL, S/P STAT 08/22/2023 2:40 AM CDT HEPARIN LEVEL ANTI-XA ASSAY, P STAT 08/22/2023 2:40 AM CDT ACTIVATED PARTIAL THROMBOPLASTIN TIME (APTT), P STAT 08/22/2023 2:40 AM CDT TRIGLYCERIDES, S Routine 08/21/2023 7:32 AM CDT PHOSPHORUS (INORGANIC), S Routine 08/21/2023 7:32 AM CDT MAGNESIUM, S Routine 08/21/2023 7:32 AM CDT BASIC METABOLIC PANEL, S/P Routine 08/21/2023 7:32 AM CDT CBC WITHOUT DIFFERENTIAL, B Routine 08/21/2023 7:32 AM CDT HEPARIN LEVEL ANTI-XA ASSAY, P Routine 08/21/2023 7:32 AM CDT ACTIVATED PARTIAL THROMBOPLASTIN TIME (APTT), P Routine 08/21/2023 7:[address] PERIPHERALLY INSERTED CENTRAL CATHETER (PICC) Routine 08/20/2023 8:40 PM CDT DX ABDOMEN PORTABLE ANTERIOR POSTERIOR 1 VIEW RAD - Routine (most inpatients and all outpatients) 08/20/2023 6:[address] ABDOMEN PELVIS WITH IV CONTRAST RAD - Timed (for specific dates/times) 08/20/2023 3:05 PM CDT BASIC METABOLIC PANEL, S/P Routine 08/20/2023 3:19 AM CDT CBC WITHOUT DIFFERENTIAL, B Routine 08/20/2023 3:19 AM CDT ACTIVATED PARTIAL THROMBOPLASTIN TIME (APTT), P Routine 08/20/2023 3:19 AM CDT ACTIVATED PARTIAL THROMBOPLASTIN TIME (APTT), P Timed 08/19/2023 10:57 AM CDT ACTIVATED PARTIAL THROMBOPLASTIN TIME (APTT), P Timed 08/19/2023 4:51 AM CDT ACTIVATED PARTIAL THROMBOPLASTIN TIME (APTT), P Timed 08/18/2023 10:03 PM CDT ACTIVATED PARTIAL THROMBOPLASTIN TIME (APTT), P Timed 08/18/2023 2:50 PM CDT ACTIVATED PARTIAL THROMBOPLASTIN TIME (APTT), P Timed 08/18/2023 6:42 AM CDT ACTIVATED PARTIAL THROMBOPLASTIN TIME (APTT), P Timed 08/17/2023 11:04 PM CDT US LOWER EXTREMITY VEINS BILATERAL RAD - Routine (most inpatients and all outpatients) 08/17/2023 6:58 PM CDT ACTIVATED PARTIAL THROMBOPLASTIN TIME (APTT), P STAT [...] LINE INSERTION Routine 08/15/2023 9:51 AM CDT TX US GUIDE VASC ACCESS Routine 08/15/2023 9:51 AM CDT TX ARTL CATH/CNULA MONITOR PERC Routine 08/15/2023 9:51 AM CDT LDA ANE ENDOTRACHEAL AIRWAY Routine 08/15/2023 8:40 AM CDT APPLICATION WOUND VACUUM ABDOMEN 08/15/2023 8:10 AM CDT Rupture Bladder Spontaneous CYSTOSCOPY FLEXIBLE 08/15/2023 8 :10 AM CDT Rupture Bladder Spontaneous EXPLORATORY LAPAROTOMY 08/15/2023 8:10 AM CDT Rupture Bladder Spontaneous BACTERIA / SHIRIN CULTURE, BLOOD Routine 08/15/2023 3:33 AM CDT BASIC METABOLIC PANEL, S/P Timed 08/15/2023 3:31 AM CDT BACTERIA / SHIRNI CULTURE, BLOOD Routine 08/15/2023 3:31 AM CDT [...] 5:07 PM CDT MICROSCOPIC MANUAL Timed 08/13/2023 5: 07 PM CDT PH, RANDOM, U Timed 08/13/2023 5:07 PM CDT URINALYSIS WITH MICROSCOPIC Timed 08/13/2023 5:07 PM CDT BACTERIAL CULTURE, AEROBIC + SUSC, URINE Timed 08/13/2023 5:07 PM CDT INTERPRETATION OF OUTSIDE CT ABDOMEN AND OR PELVIS RAD - Routine (most inpatients and all outpatients) 08/13/2023 4:[address] BODY Routine 08/13/2023 4:35 AM CDT from Last 3 Months Results * Transfuse Red Blood Cells : (08/26/2023 12:52 PM CDT) Only the most recent of6 resultswithin the time period is included. Corin Ring M.D. BLOOD TRANSFUSION OR DERABLES * IR PICC Line Removal (08/26/2023 11:50 AM CDT) Anatomical Region Laterality Modality Chest, Pelvis, Abdomen, Vasc ular Interventional RST LOS, Vascular Interventional ARZ LOS, Vascular Interventional FLA LOS N/A X-Ray Angiography Impressions 08/26/2023 4:40 PM CDT Successful removal of right tunneled PICC line. NR Narrative 08/26/2023 4:40 PM CDT EXAM: IR PICC LINE REMOVAL CLINICAL HISTORY: 83-year-old male who underwent tunneled PICC line placement on 08/22/2023 for TPN. Patient is discharging and PICC line is no longer needed. TECHNIQUE: Patient is in supine, recumbent position. ??Sterile dressing removed. ??Area is cleansed with chlorhexidine solution. ??Retention sutures removed. ??PICC line is then removed intact and in its entirety. ??Manual pressure applied to the catheter insertion site and venotomy sites for hemostasis. ??Once hemostasis was achieved, a new sterile dressing was applied. ??Patient instructed to keep this dressing in place for 48 hours, after which they may shower. ??Do not submerge until fully healed, approximately 7-10 days. ??Patient tolerated procedure well with no immediate complications. PREPROCEDURE: Patient seen and evaluated. ??Pertinent medical history reviewed. ??Informed consent was reviewed and available in electronic health records. Procedure Note Clara Luu APRN, C.N.P., D.N.P. - 08/26/2023 EXAM: IR PICC LINE REMOVAL CLINICAL HISTORY: 83-year-old male who underwent tunneled PICC lineplacement on 08/22/2023 for TPN. Patient is discharging and PICC line is nolonger needed. TECHNIQUE: Patient is in supine, recumbent position. Sterile dressingremoved. Area is cleansed with chlorhexidine solution. Retention suturesremoved. PICC line is then removed intact and in its entirety. Manualpressure applied to the catheter insertion site and venotomy sites for hemostasis. Once hemostasis wasachieved, a new sterile dressing was applied. Patient instructed to keepthis dressing in place for 48 hours, after which they may shower. Do notsubmerge until fully healed, approximately 7-10 days. Patient tolerated procedure well with noimmediate complications. PREPROCEDURE: Patient seen and evaluated. Pertinent medical historyreviewed. Informed consent was reviewed and available in electronichealth records. IMPRESSION: Successful removal of right tunneled PICC line. NR Paula Hernandez M.D. IMG IR PROCEDURES * Type and Screen (with Reflex Antibody ID) (08/26/2023 6:50 AM CDT) Only the most recent of3 resultswithin the time period is included. [facility] ABORh O Pos Not applicable 08/26/2023 7:16 AM CDT STRM Antibody Screen Negative Negative 08/26/2023 7:29 AM CDT STRM Type & Screen Expiration 08/29/2023 23:59 08/26/2023 7:16 AM CDT STRM Testing Location [place] DEFAULT 08/26/2023 6:57 AM CDT STRM Blood (Blood, Venous) 08/26/2023 6:50 AM CDT 08/26/2023 6:57 AM CDT Paula Hernandez M.D. LAB BLOOD BANK TEST ORDERABLES Performing Organization Address City/State/RUST Co de Phone Number [facility] [address] [place] [address], [facility] [address] [place] [address] * (ABNORMAL) Renal Function Panel (08/26/2023 3:20 AM CDT) Only the most recent of4 resultswithin the time period is included. [facility] Potassium, S 4.4 3.6 - 5.2 mmol/L 08/26/2023 4:04 AM CDT DTL Sodium, S 138 135 - 145 mmol/L 08/26/2023 4:04 AM CDT DTL Chloride, S 107 98 - 107 mmol/L 08/26/2023 4:04 AM CDT DTL Bicarbonate, S 24 22 - 29 mmol/L 08/26/2023 4:04 AM CDT DTL Anion Gap 7 7 - 15 08/26/2023 4:04 AM CDT DTL BUN (Blood Urea Nitrogen), S 21 8 - 24 mg/dL 08/26/2023 4:04 AM CDT DTL Creatinine 1.09 0.74 - 1.35 mg/dL 08/26/2023 4:04 AM CDT DTL Estimated GFR (eGFR) 67 >=60 mL/min/BSA 08/26/2023 4:04 AM CDT DTL Comment: Estimated GFR calculated using the 2020 CKD_EPI creatinine equation. Calcium, Total, S 7.5(L) 8.8 - 10.2 mg/dL 08/26/2023 4:04 AM CDT DTL Glucose, S 109 70 - 140 mg/dL 08/26/2023 4:04 AM CDT DTL Albumin, S 2.3(L) 3.5 - 5.0 g/dL 08/26/2023 4:04 AM CDT DTL Phosphorus (Inorganic), S 2.7 2.5 - 4.5 mg/dL 08/26/2023 4:04 AM CDT DTL Blood (Blood, Venous) 08/26/2023 3:20 AM CDT 08/26/2023 3:50 AM CDT Boubacar Brock M.D. LAB BLOOD ADD-ON [address] [address], [facility] [address] [place] [address] * Heparin Anti-Xa Assay (08/26/2023 3:20 AM CDT) Only the most recent of9 resultswithin the time period is included. Heparin Anti-Xa, P 0.26 IU/mL 2023 3:58 AM CDT DTL Comment: UFH therapeutic range: ?? 0.30-0.70 IU/mL LMWH therapeutic range: 0.50-1.00 IU/mL 0.50-1.00 IU/mL for twice daily dosing ?? 1.00-2.00 IU/mL for once daily dosing (sample obtained 4-6 hours following subcutaneous injection) LMWH prophylactic range:0.10-0.30 IU/mL ----ADDITIONAL INFORMATION---- Heparin Anti-Xa is used to measure heparin concentrations in patients receiving low molecular weight heparin (LMWH) or unfractionated heparin (UFH). Blood (Blood, Venous) 08/26/2023 3:20 AM CDT 08/26/2023 3:35 AM CDT Mayur Hoyt M.D. LAB BLOOD NON ADD -ON [facility] [address] [place] [address], [facility] [address] [place] [address] * (ABNORMAL) CBC without Differential (08/26/2023 3:20 AM CDT) Only the most recent of9 resultswithin the time period is included. Hemoglobin 7.4(L) 13.2 - 16.6 g/dL 08/26/2023 3:44 AM CDT DTL Hematocrit 23.4(L) 38.3 - 48.6 % 08/26/2023 3:44 AM CDT DTL Erythrocytes 2.66(L) 4.35 - 5.65 x10(12)/L 08/26/2023 3:44 AM CDT DTL MCV 88.0 78.2 - 97.9 fL 08/26/2023 3:44 AM CDT DTL RBC Distrib Width 18.0(H) 11.8 - 14.5 % 08/26/2023 3:44 AM CDT DTL Platelet Count 267 135 - 317 x10(9)/L 08/26/2023 3:44 AM CDT DTL Leukocytes 8.8 3.4 - 9.6 x10(9)/L 08/26/2023 3:44 AM CDT DTL Blood (Blood, Venous) 08/26/2023 3:20 AM CDT 08/26/2023 3:35 AM CDT oCrin Ring M.D. LAB BLOOD ADD-ON [facility] [address] [place] [address], [facility] [address] [place] [address] * Magnesium (08/26/2023 3:20 AM CDT) Only the most recent of6 resultswithin the time period is included. Magnesium, S 2.1 1.7 - 2.3 mg/dL 08/26/2023 4:04 AM CDT DTL Blood (Blood, Venous) 08/26/2023 3:20 AM CDT 08/26/2023 3:50 AM CDT Boubacar Brock M.D. LAB BLOOD ADD-ON Performing Organization Address City/[facility]/RUST Co de Phone Number [facility] [address] [place] [address] * (ABNORMAL) Potassium (08/23/2023 9:58 PM CDT) Potassium, S 3.5(L) 3.6 - 5.2 mmol/L 08/23/2023 10:45 PM CDT DTL Blood (Blood, Venous) 08/23/2023 9:58 PM CDT 08/23/2023 10:30 PM CDT Boubacar Brock M.D. LAB BLOOD ADD-ON Performing Organization Address City/[facility]/[place] Co de Phone Number [facility] [address] [place] [address] * (ABNORMAL) Phosphorus Inorganic (08/23/2023 9:58 PM CDT) Only the most recent of2 resultswithin the time period is included. Phosphorus (Inorganic), S 2.1(L) 2.5 - 4.5 mg/dL 08/23/2023 10:45 PM CDT DTL Blood (Blood, Venous) 08/23/2023 9:58 PM CDT 08/23/2023 10:30 PM CDT Paula Hernandez M.D. LAB BLOOD ADD-ON Performing Organization Address City/[facility] de Phone Number [facility] [address] [place] [address] * Triglycerides (08/23/2023 3:42 AM CDT) Only the most recent of2 resultswithin the time period is included. Triglycerides 106 mg/dL 08/23/2023 4:50 AM CDT DTL Comment: ----REFERENCE VALUE---- Normal: <150 mg/dL Borderline High: 150-199 mg/dL High: 200-499 mg/dL Very High: > or =500 mg/dL Fasting (8 HR or more) Yes 08/23/2023 4:19 AM CDT DT Blood (Blood, Venous) 08/23/2023 3:42 AM CDT 08/23/2023 4:19 AM CDT Boubacar Brock M.D. LAB BLOOD ADD-ON Performing Organization Address [facility] de Phone Number [facility] [address] [place] [address] * Buttock/Sacrum-Nursing Image Exam (08/23/2023 12:44 AM CDT) 08/23/2023 12:4 1 AM CDT Narrative [facility] - 08/23/2023 12:44 AM CDT This order has been created and auto-finalized to support the import of images acquired without order. The clinical documentation to support these images can be found on the encounter that produced images. Provider Not In System IMG NON RAD IMAGI NG PROCEDURES Performing Organization Address [facility] Co de Phone Number [facility] NA * Glucose, POCT (08/22/2023 11:38 PM CDT) Glucose, POCT, B 117 70 - 140 mg/dL 08/23/2023 1:06 AM CDT PCLX Site Capillary 08/23/2023 1:06 AM CDT PCLX Last Intake NPO 08/23/2023 1:06 AM CDT PCLX Blood 08/22/2023 11:3 8 PM CDT 08/23/2023 1:06 AM CDT Unknown Provider LAB POCT ORDERABLES- MANUAL POC [facility] [address] [place] [address], [facility] PCLX [facility] [address] [place] [address] * CT Abdomen Pelvis without IV Contrast (08/22/2023 7:19 PM CDT) Anatomical Region Laterality Modality Abdomen, Pelvis, Abdominal R ST LOS, Abdominal ARZ LOS, Abdominal FLA LOS N/A Computed Tomograp hy, Computed Tomography Impressions 08/22/2023 8:03 PM CDT 1. ??Interval resolution of the previously seen small bowel obstruction. Enteric contrast is visualized to the sigmoid colon. 2. ??Diffuse mild thickening of the rectum and distal sigmoid colon likely representing mild proctocolitis. Narrative 08/22/2023 8:03 PM CDT EXAM: ??CT ABDOMEN PELVIS WITHOUT IV CONTRAST COMPARISON: ??CT abdomen pelvis 08/20/2023 FINDINGS: ??Interval resolution of the previously seen small bowel obstruction. Enteric contrast is visualized to the sigmoid colon. Normal caliber small and large bowel. Atrophic right kidney with stable positioning of ureteral stent. Left lower quadrant surgical drain with tip in the pelvis. Trace free fluid/stranding in the pelvis. Tabares catheter with iatrogenic intraluminal urinary bladder air. Diffuse mild thickening of the rectum and distal sigmoid colon. Colonic diverticulosis. Enteric tube tip in stomach. IVC filter. Slightly decreased foci of air along the left inguinal region and left fat-containing inguinal hernia, likely postoperative. Trabeculated urinary bladder with luminal irregularity, likely from known repaired perforation. Unremarkable noncontrast appearance of the gallbladder, liver, spleen, left kidney, and adrenal glands. Pancreatic atrophy. Right ARTURO. Sacral sclerosis. Postsurgical changes of the anterior abdominal wall. Small fat-containing umbilical hernia. Bibasilar atelectasis. Procedure Note Dacia Grewal M.D. - 08/22/2023 EXAM: CT ABDOMEN PELVIS WITHOUT IV CONTRAST COMPARISON: CT abdomen pelvis 08/20/2023 FINDINGS: Interval resolution of the previously seen small bowelobstruction. Enteric contrast is visualized to the sigmoid colon. Normalcaliber small and large bowel. Atrophic right kidney with stable positioning of ureteral stent. Leftlower quadrant surgical drain with tip in the pelvis. Trace freefluid/stranding in the pelvis. Tabares catheter with iatrogenic intraluminalurinary bladder air. Diffuse mild thickening of the rectum and distal sigmoid colon. Colonic diverticulosis. Enterictube tip in stomach. IVC filter. Slightly decreased foci of air along theleft inguinal region and left fat-containing inguinal hernia, likelypostoperative. Trabeculated urinary bladder with luminal irregularity, likely from known repaired perforation. Unremarkable noncontrast appearance of the gallbladder, liver, spleen,left kidney, and adrenal glands. Pancreatic atrophy. Right ARTURO. Sacral sclerosis. Postsurgical changes of the anteriorabdominal wall. Small fat-containing umbilical hernia. Bibasilar atelectasis. IMPRESSION: 1. Interval resolution of the previously seen small bowel obstruction.Enteric contrast is visualized to the sigmoid colon. 2. Diffuse mild thickening of the rectum and distal sigmoid colon likelyrepresenting mild proctocolitis. Paula Hernandez M.D. [facility] CT PROCEDURES * Creatinine, Body Fluid (08/22/2023 3:30 PM CDT) Creatinine, BF 1.2 See Comment mg/dL 08/22/2023 6:56 PM CDT DTL Comment: ----ADDITIONAL INFORMATION---- Peritoneal, Pleural, and Drain fluid concentrations should be compared to serum or plasma. Fluid to serum ratios >1.0 suggest the specimen may be contaminated with urine. Peritoneal dialysate fluid to serum creatinine ratios can be calculated from timed collections to determine peritoneal membrane transport rates. All other fluids refer to www.[employer].com for further interpretive information. This test has been modified from the phonograph mechanic's instructions. Its performance characteristics were determined by [facility] in a manner consistent with CLIA requirements. This test has not been cleared or approved by the U.S. Food and Drug Administration. Fluid Type, Creatinine Fluid, Abdomen 08/22/2023 3:52 PM CDT DTL Fluid (Abdomen) 08/22/2023 3 :30 PM CDT 08/22/2023 6:36 PM CDT Corin Ring M.D. LAB BODY FLUIDS AND STOOLS ORDERABLES [facility] [address] [place] [address], [facility] DTL [facility] [address] [place] [address] * IR PICC Line Placement (08/22/2023 8:35 AM CDT) Anatomical Region Laterality Modality Chest, Pelvis, Abdomen, Vasc ular Interventional RST LOS, Vascular Interventional ARZ LOS, Vascular Interventional FLA LOS N/A X-Ray Angiography Impressions 08/22/2023 9:05 AM CDT Placement of a right IJ vein single-lumen 4 Swedish tunneled PowerPICC ready for immediate use. NR Narrative 08/22/2023 9:05 AM CDT EXAM: IR PICC LINE PLACEMENT CLINICAL HISTORY: 83-year-old male presents for tunneled single-lumen PICC placement for total parenteral nutrition. TECHNIQUE: The patient was prepared and draped in the usual sterile fashion over the right neck and chest. Using ultrasound guidance to access vessel, patency was shown and after anesthetizing the skin with lidocaine the right internal jugular vein was punctured successfully. A permanent image was created and stored. Wire advanced into the IVC and a 4 Swedish dilator advanced over the wire and attached to a one-way stopcock. A suitable exit site in the right anterior chest was anesthetized and a small incision made. A 4 Swedish single-lumen PowerPICC was then tunneled from the skin exit site in the right anterior chest to the venotomy site. Catheter was cut at the 21 cm fortino and advanced through a peel-away sheath. Catheter tip is near the SVC/RA junction. Lumen was flushed and catheter is ready for immediate use. Catheter secured to the skin with 2-0 Prolene stitch and venotomy site closed with 4-0 Vicryl stitch. Sterile dressings applied. No immediate complications. For placement of this central venous access, we followed catheter checklist and a standardized protocol. The position of the catheter tip was confirmed under fluoroscopic guidance, and a final image of the catheter position was obtained. Ready for use. CT injectable PowerPICC was placed. This device can be power injected up to a pressure of 300 PSI and flow rate of 5 mL/sec. PREPROCEDURE: Patient seen and evaluated. Allergies, pertinent medications, and history reviewed. Discussed risks, benefits, alternatives for procedure, and obtained informed consent. Patient understands information and questions answered. Immediately prior to starting the procedure, in the presence of the assisting personnel, procedural pause was conducted to verify correct patient identity and verification of procedure to be performed, and as applicable, correct side and site, correct patient position, availability of implants, special equipment, or special requirements, and all image and specimen identification data. The roles and responsibilities of care team members, residents, and fellows were discussed. Procedure Note Joni Cerna M.D. - 08/22/2023 EXAM: IR PICC LINE PLACEMENT CLINICAL HISTORY: 83-year-old male presents for tunneled single-lumen PICCplacement for total parenteral nutrition. TECHNIQUE: The patient was prepared and draped in the usual sterilefashion over the right neck and chest. Using ultrasound guidance to accessvessel, patency was shown and after anesthetizing the skin with lidocainethe right internal jugular vein was punctured successfully. A permanent image was created and stored. Wireadvanced into the IVC and a 4 Swedish dilator advanced over the wire andattached to a one-way stopcock. A suitable exit site in the right anteriorchest was anesthetized and a small incision made. A 4 Swedish single-lumen PowerPICC was then tunneled fromthe skin exit site in the right anterior chest to the venotomy site.Catheter was cut at the 21 cm fortino and advanced through a peel-awaysheath. Catheter tip is near the SVC/RA junction. Lumen was flushed and catheter is ready for immediate use.Catheter secured to the skin with 2-0 Prolene stitch and venotomy siteclosed with 4-0 Vicryl stitch. Sterile dressings applied. No immediatecomplications. For placement of this central venous access, we followed catheterchecklist and a standardized protocol. The position of the catheter tipwas confirmed under fluoroscopic guidance, and a final image of thecatheter position was obtained. Ready for use. CT injectable PowerPICC was placed. This device can be power injected upto a pressure of 300 PSI and flow rate of 5 mL/sec. PREPROCEDURE: Patient seen and evaluated. Allergies, pertinentmedications, and history reviewed. Discussed risks, benefits, alternativesfor procedure, and obtained informed consent. Patient understandsinformation and questions answered. Immediately prior to starting the procedure, in the presence of the assistingpersonnel, procedural pause was conducted to verify correct patientidentity and verification of procedure to be performed, and as applicable,correct side and site, correct patient position, availability of implants, special equipment, or specialrequirements, and all image and specimen identification data. The rolesand responsibilities of care team members, residents, and fellows werediscussed. IMPRESSION: Placement of a right IJ vein single-lumen 4 Swedish tunneled PowerPICCready for immediate use. NR Kimi Vieira M.D., M.S. [facility] KESHIA LAWSON * (ABNORMAL) APTT (Activated Partial Thromboplastin Time) (08/22/2023 2:40 AM CDT) Only the most recent of10 resultswithin the time period is included. Pathologist [facility] Activated Partial Thrombopl Time, P 64(H) 25 - 37 sec 08/22/2023 3:12 AM CDT STMA Blood (Blood, Venous) 08/22/2023 2:40 AM CDT 08/22/2023 3:01 AM CDT Latisha Whitehead M.D. LAB BLOOD ADD-ON [facility] [address] [place] [address], [facility] [address] [place] [address] * (ABNORMAL) Comprehensive Metabolic Panel (08/22/2023 2:40 AM CDT) Pathologist [facility] Potassium, S 3.2(L) 3.6 - 5.2 mmol/L 08/22/2023 3:41 AM CDT DTL Sodium, S 136 135 - 145 mmol/L 08/22/2023 3:41 AM CDT DTL Chloride, S 97(L) 98 - 107 mmol/L 08/22/2023 3:41 AM CDT DTL Bicarbonate, S 28 22 - 29 mmol/L 08/22/2023 3:41 AM CDT DTL Anion Gap 11 7 - 15 08/22/2023 3:41 AM CDT DTL BUN (Blood Urea Nitrogen), S 17 8 - 24 mg/dL 08/22/2023 3:41 AM CDT DTL Creatinine 1.37(H) 0.74 - 1.35 mg/dL 08/22/2023 3:41 AM CDT DTL Estimated GFR (eGFR) 51(L) >=60 mL/min/BS A 08/22/2023 3:41 AM CDT DTL Comment: Estimated GFR calculated using the 2020 CKD_EPI creatinine equation. Calcium, Total, S 7.2(L) 8.8 - 10.2 mg/dL 08/22/2023 3:41 AM CDT DTL Glucose, S 122 70 - 140 mg/dL 08/22/2023 3:41 AM CDT DTL Protein, Total, S 4.7(L) 6.3 - 7.9 g/dL 08/22/2023 3:41 AM CDT DTL Albumin, S 2.6(L) 3.5 - 5.0 g/dL 08/22/2023 3:41 AM CDT DTL Aspartate Aminotransferase (AST), S 25 8 - 48 U/L 08/22/2023 3:41 AM CDT DTL Alkaline Phosphatase, S 100 40 - 129 U/L 08/22/2023 3:41 AM CDT DTL Alanine Aminotransferase (ALT), S 14 7 - 55 U/L 08/22/2023 3:41 AM CDT DTL Bilirubin, Total, S 0.4 0.0 - 1.2 mg/dL 08/22/2023 3:41 AM CDT DTL Blood (Blood, Venous) 08/22/2023 2:40 AM CDT 08/22/2023 3:17 AM CDT Latisha Whitehead M.D. LAB BLOOD ADD-ON Performing Organization Address City/[facility]/ZIP Co de Phone Number [facility] [address] [place] [address], [facility] DTL [facility] [address] [place] [address] * (ABNORMAL) Basic Metabolic Panel (08/21/2023 7:32 AM CDT) Only the most recent of7 resultswithin the time period is included. [facility] Potassium, S 3.3(L) 3.6 - 5.2 mmol/L 08/21/2023 9:03 AM CDT DTL Sodium, S 139 135 - 145 mmol/L 08/21/2023 9:03 AM CDT DTL Chloride, S 98 98 - 107 mmol/L 08/21/2023 9:03 AM CDT DTL Bicarbonate, S 28 22 - 29 mmol/L 08/21/2023 9:03 AM CDT DTL Anion Gap 13 7 - 15 08/21/2023 9:03 AM CDT DTL BUN (Blood Urea Nitrogen), S 24 8 - 24 mg/dL 08/21/2023 9:03 AM CDT DTL Creatinine 1.32 0.74 - 1.35 mg/dL 08/21/2023 9:03 AM CDT DTL Estimated GFR (eGFR) 53(L) >=60 mL/min/BSA 08/21/2023 9:03 AM CDT DTL Comment: Estimated GFR calculated using the 2020 CKD_EPI creatinine equation. Calcium, Total, S 7.6(L) 8.8 - 10.2 mg/dL 08/21/2023 9:03 AM CDT DTL Glucose, S 89 70 - 140 mg/dL 08/21/2023 9:03 AM CDT DTL Blood (Blood, Venous) 08/21/2023 7:32 AM CDT 08/21/2023 8:38 AM CDT Lizette Harvey M.D. LAB BLOOD ADD-O N Performing Organization Address City/[facility]/ZIP Co de Phone Number [facility] [address] [place] [address], [facility] DTL [facility] [address] [place] [address] * Place peripherally inserted central catheter (PICC) (08/20/2023 8:40 PM CDT) Narrative MMODAL - 08/20/2023 8:40 PM CDT Miko Shah R.N. ? 08/20/2023 ??8:[address] peripherally inserted central catheter (PICC) Performed by: Miko Shah R.N. Authorized by: Lizette Harvey M.D. ?? Care team members present 1. Miko Shah R.N. 2. Geneva Cortez R.N. PROCEDURE DETAILS Select line: PICC ?? Line type: temporary (non-tunneled, non-implanted) Adult or Vinh/Peds: adult # of lumens: other Optimal site selected: no ?? CONSENT Consent obtained: written (Risks, benefits and alternatives were discussed and a written Informed Consent was obtained. Please see Informed Consent form for further details.) PRE-PROCEDURE DETAILS Appropriate hand hygiene, gown, cap, mask, protective eyewear, sterile gloves, skin preparation, sterile drape, and strict aseptic technique were utilized as applicable for the procedure.: yes ?? Lizette Harvey M.D. PROCEDURE/MINOR SURGICAL ORDERABLES MMODAL NA * DX Abdomen Portable Anterior Posterior 1 View (08/20/2023 6:27 PM CDT) Anatomical Region Laterality Modality Abdomen, Abdominal RST LOS, Abdominal ARZ LOS, Abdominal FLA LOS N/A Digital Radiography Impressions 08/20/2023 6:28 PM CDT Since 08/15/2023, exchanged/advanced enteric tube with tip and sidehole in the distended stomach. Increased gaseous distention of several loops of small bowel, concerning for obstruction as seen on same-day CT. Right ureteral stent. Narrative 08/20/2023 6:28 PM CDT EXAM: ??DX ABDOMEN PORTABLE ANTERIOR POSTERIOR 1 VIEW Procedure Note Raul Vázquez M.D., M.S. - 08/20/2023 EXAM: DX ABDOMEN PORTABLE ANTERIOR POSTERIOR 1 VIEW IMPRESSION: Since 08/15/2023, exchanged/advanced enteric tube with tip and sidehole inthe distended stomach. Increased gaseous distention of several loops ofsmall bowel, concerning for obstruction as seen on same-day CT. Rightureteral stent. Lizette Harvey M.D. IMPrieto DIAGNOSTIC IMAGING PROCEDURES * CT Abdomen Pelvis with IV Contrast (08/20/2023 3:05 PM CDT) Anatomical Region Laterality Modality Abdomen, Pelvis, Abdominal R ST LOS, Abdominal ARZ LOS, Abdominal FLA LOS N/A Computed Tomograp hy, Computed Tomography 08/20/2023 2:47 PM CDT Impressions 08/20/2023 4:33 PM CDT 1. Small bowel obstruction with a transition point in the right pelvis adjacent to the pelvic surgical drain. No findings to suggest bowel ischemia at this point. 2. Probable mild proctocolitis. 3. Resolution of hydronephrosis of the atrophic right kidney. Narrative 08/20/2023 4:33 PM CDT REVISED REPORT: EXAM: ??CT ABDOMEN PELVIS WITH IV CONTRAST COMPARISON: ??CT abdomen/pelvis 08/13/2023. FINDINGS: ?? Tiny hepatic hypoattenuating lesions, likely cysts or hemangiomas. Normal spleen size. Pancreatic atrophy. Nondilated main pancreatic duct. Right adrenal calcifications. Atrophic right kidney. Right ureteral stent. Resolved right hydronephrosis. Small renal cysts. Trabeculated urinary bladder with luminal irregularity, likely from known repaired perforation. No loculated drainable fluid collections adjacent to the urinary bladder. Moderate arterial atherosclerotic disease. IVC filter. Scattered colonic diverticula. Mild wall thickening of the rectum. Moderate fluid distention of the stomach and the esophagus which also demonstrates mild wall thickening. Moderate distention of the small bowel measuring up to 4.4 cm with transition in the right pelvis (). Pelvic surgical drain. Bladder catheter. Similar sacral sclerosis. Osseous demineralization. Right hip arthroplasty. Small fat-containing umbilical hernia. Anterior abdominal skin rayshawn. Pulmonary emphysema. Procedure Note Raul Vázquez M.D., M.S. - 08/26/2023 REVISED REPORT: EXAM: CT ABDOMEN PELVIS WITH IV CONTRAST COMPARISON: CT abdomen/pelvis 08/13/2023. FINDINGS: Tiny hepatic hypoattenuating lesions, likely cysts or hemangiomas. Normalspleen size. Pancreatic atrophy. Nondilated main pancreatic duct. Rightadrenal calcifications. Atrophic right kidney. Right ureteral stent.Resolved right hydronephrosis. Small renal cysts. Trabeculated urinary bladder with luminal irregularity,likely from known repaired perforation. No loculated drainable fluidcollections adjacent to the urinary bladder. Moderate arterial atherosclerotic disease. IVC filter. Scattered colonic diverticula. Mild wall thickening of the rectum.Moderate fluid distention of the stomach and the esophagus which alsodemonstrates mild wall thickening. Moderate distention of the small bowelmeasuring up to 4.4 cm with transition in the right pelvis (). Pelvic surgical drain. Bladder catheter. Similar sacral sclerosis. Osseous demineralization. Right hiparthroplasty. Small fat-containing umbilical hernia. Anterior abdominalskin rayshawn. Pulmonary emphysema. IMPRESSION: 1. Small bowel obstruction with a transition point in the right pelvisadjacent to the pelvic surgical drain. No findings to suggest bowelischemia at this point. 2. Probable mild proctocolitis. 3. Resolution of hydronephrosis of the atrophic right kidney. Lizette Harvey M.D. [facility] CT PROCEDUR ES * US Lower Extremity Veins Bilateral (08/17/2023 6:58 PM CDT) Anatomical Region Laterality Modality Lower Extremity, Ultrasound RST LOS, Ultrasound ARZ LOS, Ultrasound FLA LOS Bilateral Ultrasound Impressions 08/18/2023 7:17 AM CDT 1. ??Aging, incompletely recanalized thrombus extends from the right external iliac vein to the popliteal vein. 2. ??No acute left-sided DVT. Narrative 08/18/2023 7:17 AM CDT EXAM: US LOWER EXTREMITY VEINS BILATERAL Exam performed with color and spectral Doppler analysis. COMPARISON: No relevant comparisons FINDINGS: RIGHT: IVC: Negative. Common iliac vein: Not well visualized due to bowel gas. External Iliac Vein: Aging, incompletely recanalized thrombus [...] Collateral veins are identified about the right saphenofemoral junction, compatible with a more chronic nature of the patient's DVT. A small segment of reversed flow in the GSV at the level of the SFJ is noted. LEFT: Common Femoral Vein: Negative. Profunda Femoral Vein: Negative. Femoral Vein: Negative. Popliteal Vein: Negative. Gastrocnemius Veins: Negative where seen. Soleal Veins: Negative where seen. Posterior Tibial Veins: Negative where seen. Peroneal Veins: Negative where seen. Great Saphenous Vein: Negative where seen. Small Saphenous Vein: Not Evaluated. Popliteal Fossa: Negative. Other: n/a Information on venous thrombosis and management can be found on the [employer] site. Link [email or web address] Findings discussed with ??Tayler Greenwood, ?? ([id number]) on 08/17/2023 7:11 PM. Procedure Note Jj Jimenes M.D. - 08/18/2023 EXAM: US LOWER EXTREMITY VEINS BILATERAL Exam performed with color and spectral Doppler analysis. COMPARISON: No relevant comparisons FINDINGS: RIGHT: IVC: Negative. Common iliac vein: Not well visualized due to bowel gas. External Iliac Vein: Aging, incompletely recanalized thrombus [...] more chronic nature of the patient's DVT. Asmall segment of reversed flow in the GSV at the level of the SFJ isnoted. LEFT: Common Femoral Vein: Negative. Profunda Femoral [...] can be found on theAskMayoExpert site. [email or web address] Findings discussed with Tayler Greenwood MD ([id number]) on 08/17/2023 7:11 PM. IMPRESSION: 1. 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 2. No acute left-sided DVT. Corni Ring M.D. IMG US PROCEDURES * ECG 12 Lead (08/16/2023 9:43 PM CDT) Only the most recent of2 resultswithin the time period is included. Ventricular Rate ECG/Min 134 BPM MUSE TX Interval 136 ms MUSE QRSD Interval 76 ms MUSE QT Interval 298 ms MUSE QTC Interval 445 ms MUSE P Arpin 29 degrees MUSE R Arpin -6 degrees MUSE T Wave Arpin 21 degrees MUSE 08/16/2023 9:43 PM CDT [...] ECG ORDERABLES MUSE NA * (ABNORMAL) CBC with Differential, Blood (08/15/2023 [...] Carlos Alberto Henson M.D. LAB BLOOD ADD-ON [facility] [address] [place] [address], [place] DTL [facility] [address] [place] [address] [facility] [address] [place] [address] * DX Abdomen 1 View (08/15/2023 1:19 [...] Song M.D. LAB BLOOD NON ADD-O N [facility] [address] [place] [address] * Patient Status (08/15/2023 11:56 AM CDT) Only the most recent of2 resultswithin the time period is included. Temperature 36.2 37.0 deg C 08/15/2023 12:04 PM CDT STMA Blood 08/15/2023 11:5 6 AM CDT 08/15/2023 12:03 PM CDT Rae Gonzalez APRN, PROPERTY LOSS INSURANCE CLAIM ADJUSTER, DNAP LAB BLOO D NON ADD-ON Performing Organization Address City/[facility]/ZIP Co de Phone Number [facility] [address] [place] [address] * Sodium, B (08/15/2023 11:56 AM CDT) Only the most recent of2 resultswithin the time period is included. Sodium, B 135 135 - 145 mmol/L 08/15/2023 12:06 PM CDT STMA Blood (Blood, Arterial Line) 08/15/2023 11:56 AM CDT 08/15/2023 12:03 PM CDT Hayde Song M.D. LAB BLOOD NON ADD-O N [facility] [address] [place] [address] * (ABNORMAL) Blood Gas with Coox, Arterial [...] AM CDT 08/15/2023 12:03 PM CDT Hayde Sogn M.D. LAB BLOOD NON ADD-O N [facility] [address] [place] [address], [facility] [address] [place] [address] * Potassium, Blood (08/15/2023 11:56 AM CDT) Only the most recent of2 resultswithin the time period is included. [facility] Potassium, B 4.3 3.6 - 5.2 mmol/L 08/15/2023 12:07 PM CDT STMA Blood (Blood, Arterial Line) 08/15/2023 11:56 AM CDT 08/15/2023 12:03 PM CDT Hayde Song M.D. LAB BLOOD NON ADD-O N Performing Organization Address City/[facility]/RUST Co de Phone Number [facility] [address] [place] [address], [facility] [address] [place] [address] * (ABNORMAL) Glucose, Whole Blood (08/15/2023 11:56 AM CDT) Only the most recent of2 resultswithin the time period is included. Glucose 144(H) 70 - 140 mg/dL 08/15/2023 12:06 PM CDT STMA Blood (Blood, Arterial Line) 08/15/2023 11:56 AM CDT 08/15/2023 12:03 PM CDT Hayde Song M.D. LAB BLOOD ADD-ON Performing Organization Address [facility] de Phone Number [facility] [address] [place] [address], [facility] [address] [place] [address] * (ABNORMAL) Calcium, Ionized (08/15/2023 11:56 AM CDT) Only the most recent of2 resultswithin the time period is included. Calcium, Ionized, B 4.53(L) 4.65 - 5.30 mg/dL 08/15/2023 12:07 PM CDT STMA Blood (Blood, Arterial Line) 08/15/2023 11:56 AM CDT 08/15/2023 12:03 PM CDT Hayde Song M.D. LAB BLOOD NON ADD-O N Performing Organization Address City/[facility]/RUST Co de Phone Number [facility] [address] [place] [address], [facility] [address] [place] [address] * FL Fluoro Less Than 1 Hour (08/15/2023 11:22 AM CDT) Narrative 152 HOS LOS RST - 08/15/2023 11:24 AM CDT This exam does not require a radiologist review or interpretation. Please refer to the patient's medical record on this date for clinical details. Boubacar Brock M.D. IMG FLUOROSCOPY PROC EDURES 152 HOS LOS RST * TX ARTL CATH/CNULA MONITOR PERC, TX US GUIDE VASC ACCESS, LDA ANE ARTERIAL LINE INSERTION, MC ANE INVASIVE CATH WITH ULTRASOUND (08/15/2023 9:51 AM CDT) Narrative Rae Gonzalez APRN, CRNA DNAJay - 08/15/2023 9:51 AM CDT Rae Gonzalez [...] 08/15/2023 8:40 AM CDT Rae Gonzalez APRN, CRNA, DNAP ? 08/15/2023 ??9:48 AM Airway Date/Time: 08/15/2023 8:40 AM Performed by: Rae Gonzalez APRN, CRNA, DNAP Authorized by: Hayde Song M.D. ?? Patient location during procedure: OR / Procedure Area PROCEDURE DETAILS: Mask difficulty assessment: not attempted Final airway type: video laryngoscope Laryngeal Manipulation: no ?? Final best view of glottic structures - Cormack/Lehane Score: grade 1 ETT location: oral VL device: glide scope Velpen scope blade size: 4 Tube size: 7.5 [...] Hayde Song M.D. ANESTHESIA ORDERABL ES * Bacteria / Shirin Culture, Blood #2 (08/15/2023 3:33 AM CDT) Only the most recent of4 resultswithin the time period is included. Bacteria/Leyla da Culture, Blood No growth after 5 days of incubation. 08/20/2023 6:02 AM CDT DTL Blood (Blood, Peripheral Draw) 08/15/2023 3:33 AM CDT 08/15/2023 5:58 AM CDT Comment:Specimen Source Site : Blood Narrative [facility] - 08/20/2023 6:02 AM CDT Received Bactec aerobic and Bactec anaerobic bottles Carlos Alberto Henson M.D. LAB MICROBIOLOGY - G ENERAL ORDERABLES [facility] [address] [place] [address], [facility] DTL [facility] [address] [place] [address] * CT Cystogram without IV Contrast (08/13/2023 [...] abdominal wall. Procedure Note Killian Montenegro M.B.B.S., Enedina. - 08/13/2023 EXAM: CT CYSTOGRAM WITHOUT IV [...] Carlos Alberto Henson M.D. LAB BLOOD ADD-ON [facility] [address] [place] [address], [facility] DTL [facility] [address] [place] [address] * Prothrombin Time (PT) (08/13/2023 5:27 PM CDT) Pathologist [facility] Prothrombin Time, P 12.4 9.4 - 12.5 sec 08/13/2023 5:38 PM CDT [facility] INR 1.1 0.9 - 1.1 08/13/2023 5:38 PM CDT [facility] Comment: ----ADDITIONAL INFORMATION---- Standard intensity warfarin therapeutic range: 2.0 to 3.0 ?? High intensity warfarin therapeutic range: 2.5 to 3.5 Blood (Blood, Venous) 08/13/2023 5:27 PM CDT 08/13/2023 5:31 PM CDT Carlos Alberto Henson M.D. LAB BLOOD ADD-ON [facility] [address] [place] [address], [facility] [address] [place] [address] * Osmolality, Urine (08/13/2023 5:07 PM CDT) [place] [facility] Osmolality, U 351 150 - 1150 mOsm/kg 08/13/2023 7:46 PM CDT DT Urine 08/13/2023 5:07 PM CDT 08/13/2023 5:45 PM CDT Carlos Alberto Henson M.D. LAB URINE ORDERABLES [facility] [address] [place], [place] [id number] [place] [address] [address] * (ABNORMAL) Dipstick, Urine (08/13/2023 5:07 PM CDT) Pathologist [facility] Hemoglobin, QL, U Large(A) Negative 08/13/2023 6:33 [...] M.D. LAB URINE ORDERABLES Performing Organization Address City/[facility]/ZIP Co de Phone Number [facility] [address] [place] [address] * pH, Random, Urine (08/13/2023 5:07 PM CDT) pH, Random, U 7.0 4.5 - 8.0 08/13/2023 7:46 PM CDT DTL Urine 08/13/2023 5:07 PM CDT 08/13/2023 5:45 PM CDT Carlos Alberto Henson M.D. LAB URINE ORDERABLES Performing Organization Address City/[facility]/ZIP Co de Phone Number [facility] [address] [place] [address] * (ABNORMAL) Microscopic Manual (08/13/2023 5:07 PM [...] Carlos Alberto Henson M.D. LAB URINE ORDERABLES [facility] [address] [place] [address], [facility] [address] [place] [address] * (ABNORMAL) Bacterial Culture, Aerobic + Susceptibility, [...] Carlos Alberto Henson M.D. LAB MICROBIOLOGY - [facility] ORDERABLES [address] [address], [facility] DTL [address] [address] * (ABNORMAL) Urinalysis, with Microscopic: Urine, Midstream [...] CDT DTL Predicted 24 [place] [address](H) <229 mg/24 h 08/13/2023 8:50 PM CDT DTL Predicted Range [id number] mg/24 h 08/13/2023 8:50 PM CDT DTL Comment Micro done on <2.5 mL 08/13/2023 7:55 PM CDT DTL Urine (Urine, Midstream) 08/13/2023 5:07 PM CDT 08/13/2023 5:44 PM CDT Carlos Alberto Henson M.D. LAB URINE ORDERABLES [facility] [address] [place] [address], [facility] DTL [facility] [address] [place] [address] * Interpretation of Outside CT Abdomen and [...] of S1 (2/107). This is new since 2020. Additional new sclerotic lesion seen along the [...] for metastatic disease. Carlos Alberto Henson M.D. G CT PROCEDURES * CT ABDOMEN PELVIS WO [...] Advance Directives For more information, please contact: [phone] * Full Code (Latest Code Status on File) Date Activated Date Inactivated Comments 08/13/2023 4:30 PM 08/26/2023 6:58 PM Question Answer Comments Full Code: Discussed Care Teams Designer Architect Relationship Specialty Start Date End Date Elsewhere, Pcp PCP - General Internal Medicine 08/13/23
--- OUTSIDE RECORDS SUMMARY | 2023-08-29 11:53 | XMS_ITS | Referral Summary ---
Author Name Unknown Organization [facility] Address [address] [place] [address] Care Team Providers Care Board Hammer Operator Name Role Phone Cesar Mccollum Primary Care Provider [phone] Allergies No known active allergies Medications Medication [...] on file Medical Devices Implanted Type Area Button Bradder Device Identifier Shelf Expiration Date Model / Serial / Lot Stent Ureteral Polaris Ultra [id number] - [id number] Implanted:Qty : 1 on 02/08/2022 by Nicola Ware MD at [facility] Stent Right: [employer] [id number] 10/08/2024 [id number] Explanted Type Area Button Bradder Device Identifier Shelf Expiration Date Model / Serial / Lot Stent Came Out Of The Right Ureter Explanted:Qty: 1 on 02/08/2022 by Nicola Ware MD at [facility] Right: Urethra Advance Directives For more information, please contact: [phone] Documents on File Type Date Recorded 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
--- OUTSIDE RECORDS SUMMARY | 2023-08-29 11:53 | XMS_ITS | Clinical Summary ---
Author Name Unknown Organization [facility] Address [address] [place] [address] Care Team Providers Care Client Service Coordinator Name Role Phone Cesar Mccollum Primary Care Provider [phone] Allergies No known active allergies Medications Medication [...] this topic Medical Devices Implanted Type Area Tinsel Machine Operator Device Identifier Shelf Expiration Date Model / Serial / Lot Stent Ureteral Polaris Ultra [id number] - [id number] Implanted:Qty : 1 on 02/08/2022 by Nicola Ware MD at [facility] Stent Right: [employer]ter [employer] [id number] 10/08/2024 [id number] Explanted Type Area Tinsel Machine Operator Device Identifier Shelf Expiration Date Model / Serial / Lot Stent Came Out Of The Right Ureter Explanted:Qty: 1 on 02/08/2022 by Nicola Ware MD at [facility] Right: Urethra Advance Directives For more information, please contact: [phone] Documents on File Type Date Recorded 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
--- OUTSIDE RECORDS SUMMARY | 2023-08-29 11:54 | XMS_ITS | Referral Summary ---
Author Name Unknown Organization [facility] Address [address] [place] [address] Care Team Providers Care Hot Knife Foxing Cutter Name Role Phone Elsewhere, Pcp Primary Care Provider Unavailabl e Source Comments Patient records contain information from all sites at [facility]. For routine questions regarding patient records, call [phone] during business hours, M-F 8:00 AM - 5:00 PM Central Time. Record requests for emergency care only can be directed to [phone] at any time.[facility] Encounters Date Type Department Care Team Description 08/26/2023 Orders Only Department of Urology in [address] [phone] Paula Hernandez M.D. 08/13/2023 3:42 PM CDT - 08/26/2023 4:11 PM CDT Hospital Encounter [facility], [facility], Sixth Floor [address] [place] [phone] Darnell Garcia M.D. Chow, George K, M.D. Decline Functional Status [R53.81] (Primary Dx); Hematuria [R31.9] Discharge Disposition: Home or Self Care 08/23/2023 12:45 AM CDT Ancillary Procedure Department of Nursing 08/15/2023 8:30 AM CDT Anesthesia Event [facility] OR [address] [place] [phone] Hayde Song M.D. 08/15/2023 7:55 AM CDT - 08/15/2023 11:23 AM CDT Surgery [facility] OR [address] [place] [address] Boubacar Brock M.D. Palliative EXPLORATORY LAPAROTOMY, CYSTOTOMY CLOSURE, RIGHT URETERAL STENT EXCHANGE 08/13/2023 4:35 PM CDT Ancillary Procedure Department of Radiology in [place], [place] [address] [place] [address] Carlos Alberto Henson M.D. 08/13/2023 Intake [facility] from Last [...] Tobacco: Never Tobacco Cessation:Counseling Given: Not Answered [facility] Utilities Answer Date Recorded In the past 12 months has e [employer], oil, or water [email or web address] threatened to shut off services in your [...] your living situation today? I have a [facility] place to live 08/13/2023 Sex and [...] CDT Procedure visit Department of Urology in [place], [place] [address] [place] [address] Sima Venegas M.D. [address] [place] [address] Medical Devices Implanted Type Area Generator Operator Straight Bevel Gear Device Identifier Shelf Expiration Date Model / Serial / Lot Clp Hrzn Ti 6 Clp Lg Orng - [id number] Implanted:Qt y: 1 on 08/15/2023 by Boubacar Brock M.D. at [facility] Hardware e.g. pins/screws /rods Abdomen [employer] [id number] 02/29/2028 [id number] / / [id number] Clp Hrzn Ti 6 Clp Lg Orng - [id number] Implanted:Qt y: 1 on 08/15/2023 by Boubacar Brock M.D. at [facility] Hardware e.g. pins/screws /rods Abdomen [employer] [id number] 02/29/2028 [id number] / / [id number] 4 Clp Hrzn Ti 6 Clp Md Monty - [id number] Implanted:Qt y: 1 on 08/15/2023 by Boubacar Brock M.D. at [facility] Hardware e.g. pins/screws /rods Abdomen [employer] [id number] 03/13/2028 [id number] / / [id number] Clp Hrzn Ti 6 Clp Md Monty - [id number] Implanted:Qt y: 1 on 08/15/2023 by Boubacar Brock M.D. at [facility] Hardware e.g. pins/screws /rods Abdomen [employer] [id number] 03/21/2028 [id number] / / [id number] 3 Stnt Uret Inl 6fx24 - [id number] Implanted:Qt y: 1 on 08/15/2023 by Jakob De Paz M.D. at [facility] Ureteral Stent N/A: Ureter C.R.Bard [id number] 11/18/2027 [id number] / / [id number] Procedures Procedure Name Priority Date/Time Associated Diagnosis [...] LINE INSERTION Routine 08/15/2023 9:51 AM CDT SC US GUIDE VASC ACCESS Routine 08/15/2023 9:51 AM CDT SC ARTL CATH/CNULA MONITOR PERC Routine 08/15/2023 9:51 [...] of right tunneled PICC line. NR Paula CHOUDHARY IR PROCEDURES * Type and Screen (with Reflex Antibody ID) (08/26/2023 6:50 AM CDT) Only the most recent of3 resultswithin the time period is included. Pathologist [facility] ABORh O Pos Not applicable 08/26/2023 7:16 AM CDT STRM Antibody Screen Negative Negative 08/26/2023 7:29 AM CDT STRM Type & Screen Expiration 08/29/2023 23:59 08/26/2023 7:16 AM CDT STRM Testing Location Ramer DEFAULT 08/26/2023 6:57 AM CDT STRM Blood (Blood, Venous) 08/26/2023 6:50 AM CDT 08/26/2023 6:57 AM CDT Paula Hernandez M.D. LAB BLOOD BANK TEST ORDERABLES [facility] - [facility] [address] [place] [address], [facility] STRM [facility] [address] [place] [address] * (ABNORMAL) Renal Function Panel (08/26/2023 3:20 AM CDT) Only the most recent of4 resultswithin the time period is included. Potassium, S 4.4 3.6 - 5.2 mmol/L [...] M.D. LAB BLOOD ADD-ON Performing Organization Address [facility] Co de Phone Number [facility] [address] [facility] [place] 200 [place] [address] * Heparin Anti-Xa Assay (08/26/2023 3:20 AM [...] Hoyt M.D. LAB BLOOD NON ADD -ON Performing Organization Address [facility]/ZIP Co de Phone Number [facility] 200 [place] [address], [facility] [place] 200 [place] [address] * (ABNORMAL) CBC without Differential (08/26/2023 3:20 [...] 3:20 AM CDT 08/26/2023 3:35 AM CDT Corin Ring M.D. LAB BLOOD ADD-ON Performing Organization Address City/[facility]/ZIP Co de Phone Number [facility] [address] [place] [address], [facility] [place] [address] [place] [address] * Magnesium (08/26/2023 3:20 AM CDT) Only the most recent of6 resultswithin the time period is included. Magnesium, S 2.1 1.7 - 2.3 mg/dL 08/26/2023 4:04 AM CDT DTL Blood (Blood, Venous) 08/26/2023 3:20 AM CDT 08/26/2023 3:50 AM CDT Boubacar Brock M.D. LAB BLOOD ADD-ON Performing Organization Address City/[facility]/ZIP Co de Phone Number [facility] [address] [place] [address], [facility] [address] [place] [address] * (ABNORMAL) Potassium (08/23/2023 9:58 PM CDT) Potassium, S 3.5(L) 3.6 - 5.2 mmol/L 08/23/2023 10:45 PM CDT DT Blood (Blood, Venous) 08/23/2023 9:58 PM CDT 08/23/2023 10:30 PM CDT Boubacar Brock M.D. LAB BLOOD ADD-ON Performing Organization Address City/[facility]/ZIP Co de Phone Number [facility] [address] [place], [place] [phone] [place] [address] [address] [place] [address] * (ABNORMAL) Phosphorus Inorganic (08/23/2023 9:58 PM CDT) Only the most recent of2 resultswithin the time period is included. Phosphorus (Inorganic), S 2.1(L) 2.5 - 4.5 mg/dL 08/23/2023 10:45 PM CDT DT Blood (Blood, Venous) 08/23/2023 9:58 PM CDT 08/23/2023 10:30 PM CDT Paula Hernandez M.D. LAB BLOOD ADD-ON [facility] [address] [place] [address], [facility] [address] [place] [address] * Triglycerides (08/23/2023 3:42 AM CDT) Only the most recent of2 resultswithin the time period is included. Triglycerides 106 mg/dL 08/23/2023 4:50 AM CDT DT Comment: ----REFERENCE VALUE---- Normal: <150 mg/dL Borderline High: 150-199 mg/dL High: 200-499 mg/dL Very High: > or =500 mg/dL Fasting (8 HR or more) Yes 08/23/2023 4:19 AM CDT DTL Blood (Blood, Venous) 08/23/2023 3:42 AM CDT 08/23/2023 4:19 AM CDT Boubacar Brock M.D. LAB BLOOD ADD-ON Performing Organization Address [facility] Co de Phone Number [facility] [address] [place] [address], [facility] DTL [facility] [address] [place] [address] * Buttock/Sacrum-Nursing Image Exam (08/23/2023 12:44 AM [...] RAD IMAGI NG PROCEDURES Performing Organization Address [facility] de Phone Number IICO NA * Glucose, POCT (08/22/2023 11:38 PM CDT) Glucose, POCT, B 117 70 - 140 mg/dL 08/23/2023 1:06 AM CDT PCLX Site Capillary 08/23/2023 1:06 AM CDT PCLX Last Intake NPO 08/23/2023 1:06 AM CDT PCLX Blood 08/22/2023 11:3 8 PM CDT 08/23/2023 1:06 AM CDT Unknown Provider LAB POCT ORDERABLES- MANUAL Performing Organization Address [facility] Co de Phone Number [facility] [address] [place] [address], [facility] PCLX [facility] POC [address] [place] [address] * CT Abdomen Pelvis without IV Contrast [...] colon likelyrepresenting mild proctocolitis. Paula Hernandez M.D. IMG CT PROCEDURES * Creatinine, Body Fluid (08/22/2023 [...] transport rates. All other fluids refer to [email or web address] for further interpretive information. This test has been modified from the slate picker's instructions. Its performance characteristics were determined by [facility] in a manner consistent with CLIA requirements. This test has not been cleared or approved by the U.S. Food and Drug Administration. Fluid Type, Creatinine Fluid, Abdomen 08/22/2023 3:52 PM CDT DTL Fluid (Abdomen) 08/22/2023 3 :30 PM CDT 08/22/2023 6:36 PM CDT Corin Ring M.D. LAB BODY FLUIDS AND STOOLS ORDERABLES [facility] [address] [place] [address], [place] DTL [facility] [address] [place] [address] * IR PICC Line Placement (08/22/2023 8:35 AM CDT) Anatomical Region Laterality Modality Chest, Pelvis, Abdomen, Vasc ular Interventional RST LOS, Vascular Interventional ARZ LOS, Vascular Interventional FLA LOS N/A X-Ray Angiography Impressions 08/22/2023 9:05 AM CDT Placement of a right IJ vein single-lumen 4 Macedonian tunneled PowerPICC ready for immediate use. NR [...] advanced into the IVC and a 4 Macedonian dilator advanced over the wire and attached to a one-way stopcock. A suitable exit site in the right anterior chest was anesthetized and a small incision made. A 4 Macedonian single-lumen PowerPICC was then tunneled from the [...] Wireadvanced into the IVC and a 4 Macedonian dilator advanced over the wire andattached to a one-way stopcock. A suitable exit site in the right anteriorchest was anesthetized and a small incision made. A 4 Macedonian single-lumen PowerPICC was then tunneled fromthe skin [...] of a right IJ vein single-lumen 4 Macedonian tunneled PowerPICCready for immediate use. NR Kimi Vieira M.D., M.S. IMG IR Jay LAWSON * (ABNORMAL) APTT (Activated Partial Thromboplastin Time) (08/22/2023 2:40 AM CDT) Only the most recent of10 resultswithin the time period is included. [facility] Activated Partial Thrombopl Time, P 64(H) 25 - 37 sec 08/22/2023 3:12 AM CDT STMA Blood (Blood, Venous) 08/22/2023 2:40 AM CDT 08/22/2023 3:01 AM CDT Latisha Whitehead M.D. LAB BLOOD ADD-ON [facility] [address] [place] [address], [facility] [address] [place] [address] * (ABNORMAL) Comprehensive Metabolic Panel (08/22/2023 2:40 AM CDT) [facility] Potassium, S 3.2(L) 3.6 - 5.2 mmol/L [...] CDT Latisha Whitehead M.D. LAB BLOOD ADD-ON [facility] [address] [place] [address], [facility] [place] [address] [place] [address] * (ABNORMAL) Basic Metabolic Panel (08/21/2023 7:32 AM CDT) Only the most recent of7 resultswithin the time period is included. Potassium, S 3.3(L) 3.6 - 5.2 mmol/L [...] AM CDT 08/21/2023 8:38 AM CDT Lizette N Wes Temple LAB BLOOD ADD-O N [facility] [address] [place] [address], [facility] [address] [place] [address] * Place peripherally inserted central catheter (PICC) (08/20/2023 8:40 PM CDT) Narrative MMODAL - 08/20/2023 8:40 PM CDT Miko Shah R.N. ? 08/20/2023 ??8:[address] peripherally inserted central catheter (PICC) Performed by: Miko Shah RNarendra Authorized by: Lizette Harvey M.D. ?? Care [...] same-day CT. Rightureteral stent. Lizette Harvey M.D. IMG DIAGNOSTIC IMAGING PROCEDURES * CT Abdomen Pelvis [...] cm with transition in the right pelvis (6/64). Pelvic surgical drain. Bladder catheter. Similar sacral [...] the atrophic right kidney. Lizette Harvey M.D. Prieto CT PROCEDUR ES * US Lower Extremity [...] and management can be found on the Tujia site. Link [email or web address] Findings discussed with ??Tayler Greenwood, ?? ([id number]) on 08/17/2023 7:11 PM. Procedure Note Jj [...] management can be found on theAskMayoExpert site. [email or web address] 1725 Findings discussed with Tayler Greenwood MD ([id number]) on 08/17/2023 7:11 PM. IMPRESSION: 1. 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 2. No acute left-sided DVT. Corin Ring M.D. IMG US PROCEDURES * ECG 12 Lead (08/16/2023 9:43 PM CDT) Only the most recent of2 resultswithin the time period is included. Ventricular Rate ECG/Min 134 BPM MUSE SC Interval 136 ms MUSE QRSD Interval 76 ms MUSE QT Interval 298 ms MUSE QTC Interval 445 ms MUSE P [place] 29 degrees MUSE R [place] -6 degrees MUSE T Wave [place] 21 degrees MUSE 08/16/2023 9:43 PM CDT [...] depressed in Anterolateral leads Reviewed by BETTY Shwa Geneva Azar M.D. ECG ORDERABLES MUSE NA [...] Carlos Alberto Henson M.D. LAB BLOOD ADD-ON [facility] [address] [place] [address], [facility] DTL [facility] [address] [place] [address] DHPM [facility] [address] [place] [address] * DX Abdomen 1 View (08/15/2023 1:19 [...] Song M.D. LAB BLOOD NON ADD-O N [facility] [address] [place] [address], [facility] STMA [facility] [address] [place] [address] * Patient Status (08/15/2023 11:56 AM CDT) Only the most recent of2 resultswithin the time period is included. Temperature 36.2 37.0 deg C 08/15/2023 12:04 PM CDT STMA Blood 08/15/2023 11:5 6 AM CDT 08/15/2023 12:03 PM CDT Rae Gonzalez SENIOR ENERGY MARKET COORDINATOR, MORTGAGE SPECIALIST, DNAP LAB BLOO D NON ADD-ON Performing Organization Address City/[facility]/ZIP Co de Phone Number [facility] [address] [place] [address] * Sodium, B (08/15/2023 11:56 AM CDT) Only the most recent of2 resultswithin the time period is included. Pathologist [facility] Sodium, B 135 135 - 145 mmol/L 08/15/2023 12:06 PM CDT [facility] Blood (Blood, Arterial Line) 08/15/2023 11:56 AM CDT 08/15/2023 12:03 PM CDT Hayde Song M.D. LAB BLOOD NON ADD-O N Performing Organization Address City/[facility]/ZIP Co de Phone Number [facility] [address] [place] [address] * (ABNORMAL) Blood Gas with Coox, Arterial [...] Song M.D. LAB BLOOD NON ADD-O N [facility] [address] [place] [address], [facility] [address] [place] [address] * Potassium, Blood (08/15/2023 11:56 AM CDT) Only the most recent of2 resultswithin the time period is included. [facility] Potassium, B 4.3 3.6 - 5.2 mmol/L 08/15/2023 12:07 PM CDT STMA Blood (Blood, Arterial Line) 08/15/2023 11:56 AM CDT 08/15/2023 12:03 PM CDT Hayde Song M.D. LAB BLOOD NON ADD-O N [facility] [address] [place] [address], [facility] [address] [place] [address] * (ABNORMAL) Glucose, Whole Blood (08/15/2023 11:56 AM CDT) Only the most recent of2 resultswithin the time period is included. Glucose 144(H) 70 - 140 mg/dL 08/15/2023 12:06 PM CDT STMA Blood (Blood, Arterial Line) 08/15/2023 11:56 AM CDT 08/15/2023 12:03 PM CDT Hayde Song M.D. LAB BLOOD ADD-ON Performing Organization Address City/[facility]/ZIP Co de Phone Number [facility] [address] [place], [place] [address] [place] [address] * (ABNORMAL) Calcium, Ionized (08/15/2023 11:56 AM CDT) Only the most recent of2 resultswithin the time period is included. Calcium, Ionized, B 4.53(L) 4.65 - 5.30 mg/dL 08/15/2023 12:07 PM CDT [facility] Blood (Blood, Arterial Line) 08/15/2023 11:56 AM CDT 08/15/2023 12:03 PM CDT Hayde Song M.D. LAB BLOOD NON ADD-O N [facility] [address] [place], [place] [phone] [place] [address] [address] [place] [address] * FL Fluoro Less Than 1 Hour (08/15/2023 11:22 AM CDT) Narrative 152 HOS LOS RST - 08/15/2023 11:24 AM CDT This exam does not require a radiologist review or interpretation. Please refer to the patient's medical record on this date for clinical details. Boubacar Brock M.D. IMG FLUOROSCOPY PROC EDURES 152 HOS LOS RST * SC ARTL CATH/CNULA MONITOR PERC, SC US GUIDE VASC ACCESS, LDA ANE ARTERIAL LINE INSERTION, MC ANE INVASIVE CATH WITH ULTRASOUND (08/15/2023 9:51 AM CDT) Narrative Rae Gonzalez, SENIOR ENERGY MARKET COORDINATOR, MORTGAGE SPECIALIST, DNAP - 08/15/2023 9:51 AM CDT Rae Gonzalez SENIOR ENERGY MARKET COORDINATOR, MORTGAGE SPECIALIST, DNAP ? 08/15/2023 ??9:52 AM Invasive Catheter [...] (08/15/2023 8:40 AM CDT) Narrative Rae Gonzalez, SENIOR ENERGY MARKET COORDINATOR, MORTGAGE SPECIALIST, DNAP - 08/15/2023 8:40 AM CDT Rae Gonzalez, SENIOR ENERGY MARKET COORDINATOR, MORTGAGE SPECIALIST, DNAP ? 08/15/2023 ??9:48 AM Airway Date/Time: [...] ETT location: oral VL device: glide scope Henderson scope blade size: 4 Tube size: 7.5 [...] CDT Comment:Specimen Source Site : Blood Narrative [facility] - 08/20/2023 6:02 AM CDT Received Bactec aerobic and Bactec anaerobic bottles Carlos Alberto Henson M.D. LAB [facility] ORDERABLES [facility] [address] [place] [address], [place] DTL [facility] [address] [place] [address] * CT Cystogram without IV Contrast (08/13/2023 [...] Carlos Alberto Henson M.D. LAB BLOOD ADD-ON [facility] [address] [place] [address], [facility] [address] [place] [address] * Prothrombin Time (PT) (08/13/2023 5:27 PM CDT) Prothrombin Time, P 12.4 9.4 - 12.5 sec 08/13/2023 5:38 PM CDT STMA INR 1.1 0.9 - 1.1 08/13/2023 5:38 PM CDT STMA Comment: ----ADDITIONAL INFORMATION---- Standard intensity warfarin therapeutic range: 2.0 to 3.0 ?? High intensity warfarin therapeutic range: 2.5 to 3.5 Blood (Blood, Venous) 08/13/2023 5:27 PM CDT 08/13/2023 5:31 PM CDT Narrative Authorizing Provider Result Abdifatah Henson M.D. LAB BLOOD ADD-ON Performing Organization Address [facility] Co de Phone Number [facility] [address] [place] [address], [facility] STMA [facility] [address] [place] [address] * Osmolality, Urine (08/13/2023 5:07 PM CDT) Osmolality, U 351 150 - 1150 mOsm/kg 08/13/2023 7:46 PM CDT DTL Urine 08/13/2023 5:07 PM CDT 08/13/2023 5:45 PM CDT Carlos Alberto Henson M.D. LAB URINE ORDERABLES Performing Organization Address [facility] de Phone Number [facility] [address] [place] [address], [facility] [place] [address] * (ABNORMAL) Dipstick, Urine (08/13/2023 5:07 PM [...] M.D. LAB URINE ORDERABLES Performing Organization Address City/[facility]/ZIP Co de Phone Number [facility] [address] [place], [place] [phone] [place] [address] 200 [place] [address] * pH, Random, Urine (08/13/2023 5:07 PM CDT) pH, Random, U 7.0 4.5 - 8.0 08/13/2023 7:46 PM CDT DTL Urine 08/13/2023 5:07 PM CDT 08/13/2023 5:45 PM CDT Carlos Alberto Henson M.D. LAB URINE ORDERABLES Performing Organization Address City/[facility]/ZIP Co de Phone Number [facility] [address] [place], [place] [phone] [place] [address] 200 [place] [address] * (ABNORMAL) Microscopic Manual (08/13/2023 5:07 PM [...] M.D. LAB URINE ORDERABLES Performing Organization Address City/[facility]/ZIP Co de Phone Number [facility] [address] [place], [place] [phone] [place] [address] 200 [place] [address] * (ABNORMAL) Bacterial Culture, Aerobic + Susceptibility, [...] M.D. LAB MICROBIOLOGY - G ENERAL ORDERABLES [facility] [address] [place] [address], [facility] DTL [facility] [address] [place] [address] * (ABNORMAL) Urinalysis, with Microscopic: Urine, Midstream [...] CDT DTL Predicted 24 [place] [address](H) <229 mg/24 h 08/13/2023 8:50 PM CDT DTL Predicted Range 46525-921540 mg/24 h 08/13/2023 8:50 PM CDT DTL Comment Micro done on <2.5 mL 08/13/2023 7:55 PM CDT DTL Urine (Urine, Midstream) 08/13/2023 5:07 PM CDT 08/13/2023 5:44 PM CDT Carlos Alberto Henson M.D. LAB URINE ORDERABLES [facility] [address] [place] [address], [place] DTL [facility] [address] [place] [address] * Interpretation of Outside CT Abdomen and [...] CT Body (08/13/2023 4:35 AM CDT) Narrative IICO - 08/13/2023 12:29 PM CDT This order has been created and auto-finalized to support the import of outside images. If available, original interpretation can be found on the Media Tab in Chart Review, in Document Viewer, or as an image in QREADS. If a re-interpretation or overread is required please follow defined workflow. ?? Provider Not In System IMG CT PROCEDURES Performing Organization Address City/State/[facility] Co de Phone Number [facility]IM[facility] NA from Last 3 Months Advance Directives For more information, please contact: [phone] * Full Code (Latest Code Status on File) Date Activated Date Inactivated Comments 08/13/2023 4:30 PM 08/26/2023 6:58 PM Question Answer Comments Full Code: Discussed Care Teams Hot Knife Foxing Cutter Relationship Specialty Start Date End Date Elsewhere, Pcp PCP - General Internal Medicine 08/13/23
--- OUTSIDE RECORDS SUMMARY | 2023-08-29 11:54 | XMS_ITS | Encounter Summary ---
Author Name Unknown Organization [facility] Address [address] [place] [address] Care Team Providers Care Television Cable Installer Name Role Phone Elsewhere, Pcp Primary Care Provider Unavailabl e Reason for Referral * Outpatient (Routine) - Authorized Specialty Diagnoses / Procedures Referred By Leyla t Referred To Contact Urology Paula Hernandez M.D. [address] [place] [address] URO CHIEF RESIDENT [facility] Referral ID Status Reason Start Date Expiration Date V isits Requested Visits Authorized [id number] Authorized 08/26/2023 02/24/2025 1 1 Scheduling Instructions staple removal SMOP w tonie or jason Encounter Details Date Type Department Care Team (Late st Contact Info) Description 08/26/2023 Orders Only Department of Urology in [place], [place] [address] [place] [address] Paula Hernandez M.D. [address] [place] [address] Social History Tobacco Use Types Packs/Day Years Used Date Smoking Tobacco: Never Smokeless Tobacco: Never C Utilities Answer Date Recorded In the past [...] your living situation today? I have a [facility] place to live 08/13/2023 Sex and Gender Information Value Date Recorded Sex Assigned at Not on file Gender Identity Not on file Sexual Orientation Not on file documented as of this encounter Plan of Treatment Upcoming Encounters Date Type Department Care Team (Late st Contact Info) Description 09/07/2023 11:00 AM CDT Procedure visit Department of Urology in [place], [place] [address] [place] [address] Jason Venegas M.D. [address] [place] [address] Scheduled Referrals Name Type Priority Associated Diagnoses Orde r Schedule Urology office visit (clinic) Outpatient Referral Routine Expected: 09/09/2023, Expires: 11/25/2024 documented as of this encounter Visit Diagnoses Not on filedocumented in this encounter Care Teams Television Cable Installer Relationship Specialty Start Date End Date Elsewhere, Pcp PCP - General Internal Medicine 08/13/23 documented as of this encounter
--- OUTSIDE RECORDS SUMMARY | 2023-08-29 11:54 | XMS_ITS ---
Author Name Unknown Organization [facility] Address [address] [place] [address] Care Team Providers Care Grinding Machine Operator Portable Name Role Phone Unavailable Unavailable Unavailable Surgery Details Not on file Complications Check Surgery Details section. Procedure Estimated Blood Loss Check Surgery Details section. Procedure Findings Check Surgery Details section. Procedure Specimens Taken Check Surgery Details section.
--- OUTSIDE RECORDS SUMMARY | 2023-08-29 11:54 | XMS_ITS ---
Author Name Unknown Organization [facility] Address [address] [place] [address] Care Team Providers Care Pick Up And Delivery Driver Name Role Phone Elsewhere, Pcp Primary Care [...] On Elapsed Days Session Dose Total Dose [id number] 04/28/2020 32 300 cGy 6,000 cGy Lifetime Dose Tracking * Chemical Lifetime Dose Automatic Entry Manual Entr y Radiation 8.35 mGy 8.35 mGy 0 mGy Fluoro Time 0.83 minutes 0.83 minutes 0 minutes DAP (uGy-m2) 257.44 uGy-m2 257.44 uGy-m2 0 uGy-m2
[2023-08-29] MEDS: 0.9 % SODIUM CHLORIDE 1000 ml 1,000 ML 500 ML IV (11:55)
--- OUTSIDE RECORDS SUMMARY | 2023-08-29 11:55 | XMS_ITS | Encounter Summary ---
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 [address] [place] [address] [facility] Referral ID Status Reason Start Date Expiration Date V isits Requested Visits Authorized [id number] Authorized 08/26/2023 08/25/2024 1 1 * Outpatient (Routine) - Authorized Specialty Diagnoses / Procedures Referred By Leyla rosenthal Referred To Contact Diagnoses Hematuria Procedures Cystogram URO Paula Hernandez M.D. [address] [place] [address] [facility] Referral ID Status Reason Start Date Expiration Date V isits Requested Visits Authorized [id number] Authorized 08/26/2023 08/25/2024 1 1 Encounter Details Date Type Department Care Team (Latest Contact Info) Description 08/13/2023 3:42 PM CDT - 08/26/2023 4:11 PM CDT Hospital Encounter [facility], [facility], [facility], Sixth Floor [address] [place] [phone] Darnell Garcia M.D. [address] [place] [address] Boubacar Brock M.D. [address] [place] [phone] Decline Functional Status [R53.81] (Primary Dx); Hematuria [R31.9] Discharge Disposition: Home or Self Care Social History Tobacco Use Types Packs/Day Years Used Date Smoking Tobacco: Never Smokeless Tobacco: Never [facility] Utilities Answer Date Recorded In the past 12 months has [facility] [employer], gas, oil, or water [employer] threatened to shut off services in your [...] your living situation today? I have a [facility] place to live 08/13/2023 Sex [...] Mass Index 28.52 08/25/2023 10:40 AM CDT documented in this encounter Discharge Summaries * Paula Hernandez M.D. - 08/26/2023 9:15 AM CDT DISCHARGE SUMMARY BRIEF OVERVIEW Hospital: [facility] Discharge Provider: Boubacar Brock M.D. Primary Team: [facility] Urology Surgery - Chief Helga Rojas Primary Care Providers: Elsewhere, Pcp (General) No address on file Primary Care Provider Phone Number: None Primary Care Provider Fax Number: None Admission Date: 08/13/2023 Discharge Date: 08/26/2023 PRINCIPAL DIAGNOSIS Hematuria SECONDARY DIAGNOSES Principal Problem: Hematuria Resolved Problems: * No resolved hospital problems. * Surgery Information This Encounter Past Procedures (08/26/2022 to Today) Date Procedures Providers Loc / Dept 08/15/2023 Palliative EXPLORATORY LAPAROTOMY, CYSTOTOMY CLOSURE, RIGHT URETERAL STENT EXCHANGE, CYSTOSCOPY FLEXIBLE, APPLICATION WOUND VACUUM ABDOMEN INCISIONAL Boubacar Brock M.D.Jakob De Paz M.D.Premo, Hayley, M.D.Paula Hernandez M.D. RST ROMB OR DISCHARGE DISPOSITION Home or Self Care [1] ACTIVE ISSUES REQUIRING FOLLOW UP OUTPATIENT FOLLOW UP Scheduled Appointments 08/26/2023 1:00 PM IR [facility] Radiology For appointment details refer to your Patient Appointment Guide. TEST RESULTS PENDING AT DISCHARGE Pending Labs None DETAILS OF HOSPITAL STAY REASON FOR ADMISSION Hematuria HOSPITAL COURSE Background 83 y/o male PMHx of metastatic prostate cancer on Xtandi s/p radiation complicated by radiation cystitis and proctitis Prior to Admission Noticed recurrent rectal bleeding (a few days out of 2 weeks) described as clots enough to fill a large cup. On 08/09 noticed urinary obstructive symptoms, hematuria. Symptoms worsened until he felt completely obstructed and presented to [facility]. [facility] Attempted Tabares insertion but bladder irrigation was unsuccessful on multiple attempts. Hung 1U pRBC's. Given some volume and transferred to [facility] ICU ICU Course Urology consulted and were able to replace Tabares with Alcock catheter. Successful irrigation. However, because of abdominal pain and hours without successful irrigation, CT cystogram confirmed small bladder perforation. Was started on ceftriaxone. He also spiked positive blood cultures (E. Coli). He was maintained on ceftriaxone. Per accepting service recs, and concern for active urinary bleeding, was transfused 2U pRBC's prior to transfer. Hospital Course The patient remained hemodynamically stable and was transferred to the floor. He was taken to the operating room on 08/15/2023 for right ureteral stent exchange and open bladder repair. Case was uncomplicated. His wound was closed with rayshawn and he had an overlying incisional wound VAC. the wound VAC was removed on postop day 5. The rayshawn were removed on 08/25 prior to discharge. Hospital course complicated by ileus which evolved into small bowel obstruction which then resolved. He had an NG-tube placed, had clinical improvement it was removed. He then developed recurrent symptoms of nausea, vomiting and then NG- tube was replaced. The NG tube was subsequently removed and hehad tolerated regular diet for 3 days prior to hospital discharge. At the time of discharge he was not endorsing nausea, vomiting. He is passing gas. Having solid bowel movements. Course complicated by DVT. This was detected after the patient had intermittent tachycardia in the first few days after his surgery. 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 Vascular Medicine colleagues were involved and recommended heparin drip which was initiated. At the time of discharge the heparin drip was stopped and his Xarelto was started. UROLOGY FOLLOW-UP: -CT cystogram 3 weeks from surgery with voiding trial, periprocedural antibiotics ordered -delayed message sent to our team to contact the patient to set up his next right-sided ureteral stent exchange which is due in November 2023 HOSPITAL FOLLOW UP -patient should see his primary care doctor within a week or two after discharge -patient should see cardiology team regarding plavix as soon as able DVT follow up: -Our vascular medicine team has recommended you wear compression elastic stockings for your blood clot, these can be purchased over the counter CONSULTS ORDERED DURING THIS ADMISSION IP CONSULT TO UROLOGY IP CONSULT TO CARE MANAGEMENT IP CONSULT TO VASCULAR MEDICINE IP CONSULT TO NUTRITION SUPPORT IP CONSULT TO SCALEMAKER WOUND CARE CONDITION AT DISCHARGE stable Discharge instructions were provided to the patient and caregiver(s). * Carlos Alberto Henson M.D. - 08/14/2023 [...] he felt completely obstructed and presented to [facility]. [facility] Course Attempted Tabares insertion but bladder irrigation was unsuccessful on multiple attempts. Hung 1U pRBC's. Given some volume and transferred to [facility] ICU ICU Course Urology consulted and were able to replace Tabares with Alcock catheter. Successful irrigation. However, because [...] PGY-1 CCM 3 documented in this encounter Discharge Instructions * Discharge Instructions* Yasmine Loco - 08/22/2023 1:11 PM CDT You were discharged from the [facility] Urology Surgery - Chief A - Blue Service. Please identify this service name if you call with questions after hospitalization. * Attachments The following attachments cannot be sent through Care Everywhere. * Bacitracin (On the skin) (Armenian) * Cefdinir (By mouth) (Armenian) * Trospium (By mouth) (Armenian) documented in this encounter Medications at Time of Discharge Medication Sig Dispensed Refills Start Date End Date amLODIPine (NORVASC) 10 mg tablet Take 10 mg by mouth daily. 01/11/2020 bacitracin 500 unit/gram ointment Apply 1 Application topically 4 (four) times a day as needed (catheter irritaiton). Apply to tip of penis as needed for catheter irritation. 30 g 08/26/2023 cefdinir (OMNICEF) 300 mg capsule Take 1 capsule (300 mg total) by mouth 2 (two) times a day before breakfast and dinner for 2 days. Then take 1 capsule 2 times a day before breakfast and dinner for 3 days the day before, day of, day after catheter removal. 10 capsule 08/26/2023 08/31/2023 cholecalciferol (Vitamin D3) 50 mcg (2,000 Unit) tablet Take 50 mcg by mouth daily. clopidogreL (PLAVIX) 75 mg tablet Take 75 mg by mouth daily. 12/27/2019 coenzyme Q10 (CO Q-10) 200 mg capsule Take 200 mg by mouth daily. enzalutamide (XTANDI) 40 mg capsule Take 120 mg by mouth daily. Take with or without food at the same time each day. Swallow it whole. iron,carbonyl-vitamin C (VITRON-C) 65 mg iron- [address] tablet Take 65 mg of iron by mouth daily. Do not crush or chew. metoprolol succinate (TOPROL-XL) 50 mg 24 hr tablet Take 50 mg by mouth daily. 11/02/2019 mirabegron (MYRBETRIQ) 50 mg 24 hr tablet Take 50 mg by mouth daily. nitroglycerin (NITROSTAT) 0.[address] 0.4 mg under the tongue. 11/02/2019 rosuvastatin (CRESTOR) 40 mg tablet Take 40 mg by mouth daily. tamsulosin (FLOMAX) 0.4 mg 24 hr capsule TAKE 1 CAPSULE(0.4 MG) BY MOUTH DAILY 30 capsule 06/10/2020 trospium (SANCTURA) 20 mg tablet Take 1 tablet (20 mg total) by mouth 2 (two) times a day as needed (bladder spasms). please stop 24 hours prior to catheter removal 20 tablet 08/26/2023 Xarelto 10 mg tablet Take 10 mg by mouth daily. documented as of this encounter Progress Notes * Emeterio Buchanan P.T., D.PCarlos, GCS - 08/26/2023 4:27 PM CDT 08/26/23 1627 Reason Therapy Missed Reason Therapy Missed Receiving other care Attempted to see patient twice today. On 1st attempt patient was receiving blood transfusion and RNwas working on completing cares with him. On 2nd attempt patient was with another provider. * Chary Diamond M.A., O.T., [facility] - 08/26/2023 10:21 AM CDT Occupational Therapy [facility] Inpatient Treatment SUBJECTIVE Patient's Name: Kalen Vega Referring/Attending Provider: Boubacar Brock M.D. Reason for Referral: Occupational Therapy Evaluation and Treatment History of Present Illness: Kalen Vega is a 83 y.o. male who was admitted to [facility] in [place] on 08/13/2023 for Hematuria [R31.9]. Precautions Other Precautions: Abdominal, fall precautions, monitor tachycardia and hypertension Pain Assessment: Pain not reported during session. Subjective Comments: Agreeable to therapy session. Team Communication: The patient's status was discussed and coordination of care occurred with RN, Family/Caregiver, nurse tech Family/Caregiver Present: son and [id number] OBJECTIVE Vital Signs: Vitals not formally assessed during session. No concerns during chart review and the patient had nosigns or symptoms consistent with vital changes during therapy session. Outcome Measures: -[facility] Inpatient Short Form: Putting on and taking off regular lower body clothing?: A lot Putting on and taking off regular upper body clothing?: A Little Taking care of personal grooming such as brushing teeth?: None Bathing (including washing, rinsing, drying)?: A lot Toileting, which includes using toilet, bedpan, or urinal?: A Little Eating meals?: A Little Daily Activities Raw Score (max 24): 17 Daily Activities Standardized Score: 37.26 Interpretation: Based on scoring guidelines using the raw score value: Those going to home had an average score at or above 18 Those going to facility had an average score at or below 17 Clinicians answer the [facility] Inpatient Short Form based on observed patient activity and/or clinical judgement (ie. patient can be scored without physically performing each activity) Cognition: No observable concerns with cognition at this time Therapeutic Interventions: ACTIVITIES OF DAILY LIVING: GROOMING - Assist Level: Stand By Assist - Patient Location: Standing at sink - Activity: Washing hands - Therapist Delivery: assessed, instructed, educated - Assist/Cues: verbal for adaptive equipment use, bringing walker flush to sink LOWER BODY DRESSING - Assist Level: Moderate Assist - Patient Location: Chair - LB Dressing Item: pants, incontinent brief - Therapist Delivery: assessed, instructed, assisted - Assist/Cues: verbal and tactile for technique, increased time, adaptive modifications, OT assisted with bringing catheter bag through pant leg first. - Adaptive Equipment: Blender Laborer TOILETING - Assist Level: Maximal Assist - Patient Location: Toilet - Activity: clothing management, pericare - Therapist Delivery: assessed, instructed, educated, assisted - Assist/Cues: verbal and tactile for proper hand placement (educated on placing only 1 hand on walker during sit<>stand transfer), assistance for thoroughness, increased time, safety - Adaptive Equipment: Grab bars FUNCTIONAL TRANSFERS: SUPINE TO SIT (Edge of bed) - Assist Level: Modified Early - Equipment: bed rail - Therapist Delivery: assessed, instructed, assisted - Adaptive Equipment: leg artificial candy maker trialed ; however, patient able to move legs with extra time. SIT to STAND - Assist Level: Contact Guard Assist, x 1, + assist for line management - Equipment: front wheeled walker and gait belt - Surface: Bed - Therapist Delivery: assessed, instructed, educated - Assist/Cues: verbal and tactile for proper hand placement, increased time, safety STAND to SIT - Assist Level: Contact Guard Assist, x 1, + assist for line management - Equipment: front wheeled walker and gait belt - Surface: Chair - Therapist Delivery: assessed, instructed, assisted - Assist/Cues: verbal and tactile for proper hand placement, eccentric control, increased time, safety TOILET TRANSFER - Assist Level: Contact Guard Assist - Equipment: front wheeled walker and gait belt - Approach: To and From - Surface: Toilet - Therapist Delivery: assessed, instructed, educated, assisted - Assist/Cues: verbal and tactile for proper hand placement, eccentric control, increased time, safety - Adaptive Equipment: Grab bars FUNCTIONAL MOBILITY: In-room mobility performed with contact guard assistance x1 and front wheeled walker and gait belt [...] incision withpillow or binder to decrease pain. LB Dressing: - Patient instructed on dressing compensatory strategies and aids to assist with don/doff process. Emphasized don/doff strategies including donning clothing over left extremity (stiff knee) first. Recommended adaptive equipment: Blender Laborer. Toileting - Patient instructed on accurate positioning and modifications for toileting skills with hygiene care and clothing management. Education and recommendations provided on options including toilet hygiene aid and/or toilet seat modifications. Bathroom DME: - Educated patient/caregiver regarding recommended use of bathroom safety equipment to optimize safety during bathing and toileting. Recommended DME: shower chair, toilet safety frame Activity Recommendations During Hospitalization: Patient educated on [...] hygiene strategies - Ambulate/transfer into chair 3-5x/day Energy Conservation: - Patient was educated on energy conservation and how to apply those techniques to activities of daily living. Instructed in energy conservation using the 4 P's. These include: Plan, Prioritize, Position, Pace. -Planning is deciding in advance what to do, when and how to do a task, and who will be completing the task. -Prioritizing is determining which activities are required or desired in comparison to others for dealing with a series of tasks according to their relative importance. -Position is focused on the location of one's body located in an environment. Sit for activities asmuch as possible, avoid bending/overhead reaching, use good posture and slow/smooth movements, avoid fast or rushed movements. Slide objects instead of lifting, use wheeled carts to carry heavier loads, place commonly used items with an easy to reach. -Pacing is the rate of movement, progress, performance, or delivery. Allow enough time for the activity to avoid rushing and incorporate rest breaks, modify or eliminate tasks that require straining,distribute light and more strenuous tasks throughout the day and the week, incorporate routine restbreaks to avoid maximal exertion Handouts provided: Bathroom Safety Equipment [id number], Techniques to Help You Save Energy [id number] Patient was left in bedside chair with nursing present at end of session with call light in reach, all needs met and questions answered. Assessment Discharge Therapy Needs - OT: Ongoing skilled occupational therapy Skilled therapy can include occupational therapy provided in home health, outpatient or post-acute facility. The location of these services is determined by patient's care team in partnership with patient/family. Barriers to Discharge Home: Current functional status Barriers to Discharge Comments: Patient could have 24/ supervision from family if necessary. Recommended Adaptive Equipment - OT: Toilet safety frame, Shower chair with back, Hand held shower head Level of Care Needed - OT: Assistance with toileting, Assistance with toilet/shower transfers, Assistance with meal preparation, Assistance with dressing, Assistance with showering/bathing, Assistance with transportation, Assistance with housekeeping, Assistance with shopping Clinical Impression: Patient was motivated to participate in therapy this date. Patient is functionally limited by abdominal precautions, decreased activity tolerance and strength from current medical status, that impacts his ability to safely participate in activities of daily living and transfers. Today, patient required contact guard assistance x1 with functional transfers and mobility. Greaterassistance was needed with activities of daily living (toileting and lower body dressing). Patient was educated on activity modifications/energy conservation strategies to assist in greater participation and independence in self cares. Provided patient and out on energy conservation strategies and recommended bathroom DME this date. For a safe dismissal home, patient will require their current level of assist provided by a physically capable caregiver, otherwise will need to look into post-acute rehab options. Patient is tentatively discharging this date with home health OT/PT being set up for home environment. Patient has family to assist when needed as well. Continued skilled occupational therapy services are medically necessary in the acute hospital setting in order to optimize the patient's functional independence and safety with personal care tasks, increase activity tolerance, progress functional mobility and promote returned to valued occupations. Patient is progressing towards therapy goals. Plan OT Plan Comments: Next Session: standing grooming; toileting process. Progress mobility Functional Goals: Progress: Progressing toward goals Rehab potential: Mr. Vega has good potential to achieve established occupational therapy goals within the time frame outlined below. OT Frequency: OT Amount: 1 visit per day OT Frequency: 5 times per week OT Inpatient Duration : Until goals are met or hospital discharge Requires Inpatient OT Follow-Up: Yes OT - Next Inpatient Appointment: 08/29/23 Plan: Continue with current plan Treatment interventions may include: Treatment Interventions: Therapeutic exercise, Therapeutic functional activity, Self-care/home management, Cognitive skills training Occupational Therapy Attestation Statement: Patient agrees with the plan of care and goals. Billing: Time Spent with Patient Therapeutic Interventions Home Management Training (min): 24 min Time Tracking Total Timed Units (min): 24 min Total Treatment Time (min): 24 min Chary Diamond M.A., O.T., BCP * Damaris Mena, R.N. - 08/25/2023 11:37 AM CDT SUBJECTIVE Discharge planning - Home health care OBJECTIVE Patient is admitted in [facility] [address] -room [address] ASSESSMENT / PLAN REGISTER OF WILLSmanager cleaning met with patient and son Kar to inform them of home health care acceptance for PT/OT. Patient's son Kar and [id number] will provide transportation at the time of discharge. PLAN Patient to discharge home with home health care. Home Medical Care - Admitted Since 08/13/2023 Service Provider Selected Services Address Phone Fax Patient Preferred [facility] [address] [facility] [phone] -- Behavioral Services Tech: Ghazal NURSING: - Complete documentation in the Discharge Navigator including Nursing Report Info and Facility/NextLevel of Care Info - Call report and arrange for the patient's first visit - Send After Visit Summary and required packet of dismissal information with patient, including advance directive. PRIMARY SERVICE: - Please provide a non-[facility] home health order for: physical therapy and occupational therapy in theAfter Visit Summary. - Communicate with the patient's local primary care provider by telephone for writing of home care orders. This needs to be done to help prevent discharge delays. A copy of the After Visit Summary needs to be sent there as well. CASE MANAGEMENT: -Will continue to follow for ongoing discharge planning needs. 2. Transportation upon dismissal will be provided by family--patient's son Kar and [id number]. 3. leasing representative recommended reaching out to family, friends, and neighbors for assistance. 4. leasing representative provided information regarding the dismissal process. Damaris Mena R.N. 08/25/23 * Jennifer Millard M.D. - 08/25/2023 10:20 AM CDT Nutrition Support Service Progress Note Date of Service: 08/25/2023 SUBJECTIVE HISTORY OF PRESENT ILLNESS The Nutrition Support Service and I reviewed the clinical notes, clinical status of the patient, nutrition program, and lab test results. 83 y.o. male with significant for metastatic prostate cancer, recurrent rectal bleeding, radiation proctitis, radiation cystitis, nephrosis and right atrophic kidney, who has been admitted in the setting of recurrent rectal bleeding, urinary obstructive symptoms, and hematuria after presenting to emergency department with symptoms of complete obstruction.He was noted to have bladder dome intraperitoneal perforation on imaging and underwent open cystotomy closure and right ureteral stent exchange on the 14 of August. OBJECTIVE VITAL SIGNS BP 131/74 (BP Location: Right arm;Upper, Patient Position: Semi-recumbent) Pulse 95 Temp 36.4 ??C (Oral) Resp 19 Ht 180 cm Wt 95.3 kg SpO2 99% BMI 29.41 kg/m?? PHYSICAL EXAMINATION General: Alert DIAGNOSTICS Results from last 7 days Lab Units 08/25/23 0324 08/23/23 0342 08/22/23 0240 SODIUM mmol/L 139 < > 136 CHLORIDE mmol/L 106 < > 97* CREATININE mg/dL 1.06 < > 1.37* ESTIMATED GFR EGFR mL/min/BSA 69 < > 51* BUN mg/dL 18 < > 17 GLUCOSE S mg/dL 107 < > 122 CALCIUM mg/dL 7.6* < > 7.2* MAGNESIUM mg/dL 2.2 < > -- PHOSPHORUS INORGANIC mg/dL 2.7 < > -- ALBUMIN g/dL 2.4* < > 2.6* BILIRUBIN TOTAL mg/dL -- -- 0.4 ALK PHOS U/L -- -- 100 ALT U/L -- -- 14 AST U/L -- -- 25 < > = values in this interval not displayed. ASSESSMENT / PLAN PN to be renewed tonight with change of potassium of 80 and phosphorus of 30. On regular diet.780 ml po; 900 calories. Throat sore from prior tube. With PN renewal minimal volume of 850 ml, 0 lipid, 60 grams amino acids, 100 grams dextrose. BMP: magnesium phosphorus tomorrow. Reviewed with patient #1 Hematuria Please page [facility] ([phone]) or [facility] ([phone]) Nutrition Support Service pager with questions. * Emeterio Buchanan, P.T., D.P.T., [facility] - 08/25/2023 9:35 AM CDT Physical Therapy Inpatient Treatment SUBJECTIVE Patient's Name: Kalen Vega Referring/Attending Provider: Boubacar Brock M.D. Reason for Referral: Physical Therapy Evaluate and Treat History of Present Illness: Kalen Vega is a 83 y.o. male who was admitted to [facility] in [place] on 08/13/2023 for Hematuria [R31.9] Precautions Other Precautions: Abdominal, fall precautions, monitor tachycardia and hypertension Pain Assessment: Patient denies pain this morning. Patient/Caregiver Goals: Return to home Subjective Comments: Patient agreed to session. OBJECTIVE Vital Signs Vitals taken during session: Pulse rate: 98-95 bpm, Blood pressure: 137/78 to 134/70 mmHg, O2 sats:95-96 %, and O2 flow: Room air Vitals monitored throughout session; within normal ranges. Outcome Measures: AM-PAC Inpatient Short Form: AM-PAC Basic Mobility (V.2) How much help from [...] Climbing 3-5 steps with a railing?: A Little -[facility] Basic Mobility (V.2) Raw Score: 18 -[facility] Basic Mobility (V.2) Standardized Score: 41.05 Interpretation: Based on scoring guidelines using the raw score value: Those going to home had an average score at or above 18 Those going to facility had an average score at or below 17 Clinicians answer the -[facility] Inpatient Short Form based on observed patient activity and/or clinical judgement (ie. patient can be scored without physically performing each activity) Therapeutic Interventions: SIT TO STAND x3: Assistance Level: Supervision static safe house fit with adult there which they usually [place] with a difference educated fully know who to show some or what type of stuff to bring of with a usually as able see if they difficult Device: gait belt and front wheeled walker Surface: Chair Assistance/Cueing: verbal and visual for Upper extremity placement Delivery: educated, instructed, and assessed STAND TO SIT x3: Assistance Level: Supervision Device: gait belt and front wheeled walker Surface: Chair Assistance/Cueing: verbal and visual for Alignment with seated surface and Upper extremity placement Delivery: educated, instructed, and assessed GAIT: Distance: 20m, 30m meters with seated rest Assistance Level:Contact Guard Assistance Device: gait belt and front wheeled walker Quality: decreased gait speed, decreased step length, downward gaze, forward flexed posture Assistance/Cueing:verbal and visual for Placement within the walker and Upright posture Delivery: educated, instructed, and assessed STAIRS: 3 steps with right handrail Assistance Level: Minimal Assistance Navigation Pattern: Ascending: step to Descending: step to Intervention provided: Hand Placement, Pacing, and Proper sequencing Comments: Due to IV line length limitations, patient is only able to step up forward and then return backward. This was repeated 3 times. Education : The patient/family educated on safe transfer techniques with functional mobility/activity. The patient's status was discussed and the following coordination of care occurred with the OT Patient was left in bedside chair at end of session with call light in reach, all needs met and questions answered. Assessment Discharge Therapy Needs - PT: Ongoing skilled physical therapy Skilled therapy can include physical therapy provided by home health, outpatient clinic, or a post-acute facility. The location of these services is determined by the patient's care team in partnership with patient/family. Level of Care Needed - PT: Assistance with bed mobility, Assistance with transfers (Comment), Assistance with walking and moving around the home, Assistance with stairs Equipment Recommended - PT: Front-wheeled walker Barriers to Discharge Home: Current functional status Barriers to Discharge Comments: Patient could have / supervision from family if necessary. From a physical therapy perspective, the level of care above has been recommended for Mr. Vega after hospital discharge. This level of care is based on his functional abilities during today's session. This may change throughout the hospital course and will be updated as appropriate. Clinical Impression: Patient continues to make progress towards his physical therapy goals. Today he was able to initiate stair navigation which he was able to perform with minimal assistance. Patient continues to require cuing for safe hand placement with transfers and for more upright posture and placement within thewalker during ambulation. Patient plans to dismiss home with assistance from his children and home health care, including PT/OT. This plan is reasonable from physical therapy standpoint given his continued progression with functional mobility, motivation to work on improving his functional status, and family support upon return home. From physical therapy standpoint, would recommend patient have assist of one with mobility upon return home as well as use of front wheeled walker for safety. Patient states he will have this assistance available upon return home, and has a both a front wheeled and a front wheeled walker at home. Patient requires ongoing therapy to assist with progressing towards functional independence and for supportive discharge planning. Rehab potential: Mr. Vega has Good potential to achieve established physical therapy goals within the time frame outlined below. Progress: Progressing toward goals Plan PT Plan Comments: Progress independence with bed mobility with less reliance on hospital bed features. Progress transfers and ambulation distance/tolerance/quality as able. Continue stair training when appropriate. Functional Goals: Treatment Plan: Plan: Continue with current plan PT Amount: 1 visit per day PT Frequency: 6 times per week PT Inpatient Duration : Until goals are met or hospital discharge Requires Inpatient Follow-Up: Yes PT - Next Inpatient Appointment: 08/26/23 Patient agrees with the plan of care and goals. Treatment interventions may include: Treatment/Interventions: Therapeutic exercise, Neuromuscular re-education, Gait training, Self-care/home management, Therapeutic functional activity Billing: Time Spent with Patient Therapeutic Interventions Gait Training (min): 20 min Therapeutic Activity (min): 10 min Time Tracking Total Timed Units (min): 30 min Total Treatment Time (min): 30 min Naseem Buchanan P.T., Craig.P.TJonah, GCS * Ivy Hernandez O.T. - 08/25/2023 9:18 AM CDT Occupational Therapy [facility] Hospital Inpatient Treatment SUBJECTIVE Patient's Name: Kalen Vega Referring/Attending Provider: Boubacar Brock M.D. Reason for Referral: Occupational Therapy Evaluation and Treatment History of Present Illness: Kalen Vega is a 83 y.o. male who was admitted to [facility] in [place] on 08/13/2023 for Hematuria [R31.9]. Precautions Other Precautions: Abdominal, fall precautions, monitor tachycardia and hypertension Pain Assessment: Pain not reported during session. Subjective Comments: Agreeable to therapy session. Team Communication: The patient's status was discussed and coordination of care occurred with RN, PT OBJECTIVE Vital Signs: Vitals monitored throughout session; within normal ranges. Outcome Measures: [facility] Inpatient Short Form: Putting on and taking off regular lower body clothing?: A lot Putting on and taking off regular upper body clothing?: A Little Taking care of personal grooming such as brushing teeth?: None Bathing (including washing, rinsing, drying)?: A lot Toileting, which includes using toilet, bedpan, or urinal?: A Little Eating meals?: A Little Daily Activities Raw Score (max 24): 17 Daily Activities Standardized Score: 37.26 Interpretation: Based on scoring guidelines using the raw score value: Those going to home had an average score at or above 18 Those going to facility had an average score at or below 17 Clinicians answer the AM-PAC Inpatient Short Form based on observed patient activity and/or clinical judgement (ie. patient can be scored without physically performing each activity) Cognition: Will further assess and monitor as warranted Observable concerns with cognition and further assessment is warranted Therapeutic Interventions: ACTIVITIES OF DAILY LIVING: GROOMING - Assist Level: Stand By Assist - Patient Location: Standing at sink - Activity: Brushing teeth - regular or soft brush, Washing hands - Therapist Delivery: assessed, assisted - Assist/Cues: verbal and manual for technique - Tolerated: standing with contact guard assistance for balance. Required verbal sequencing cues. LOWER BODY DRESSING - Assist Level: Minimal Assist, Moderate Assist - Patient Location: Standing, Toilet - LB Dressing Item: pants, incontinent brief - Therapist Delivery: assessed, instructed, educated, assisted, facilitated - Assist/Cues: verbal, tactile, visual, and manual for technique, sequencing, guided practice, stepby step instructions, hand over hand guiding techniques - Initially requiring minimal assistance to doff soiled brief secondary to catheter. Patient then required moderate assistance to thread new brief for catheter and difficulty managing left lower extremity. TOILETING - Assist Level: Stand By Assist - Patient Location: Toilet - Activity: clothing management, pericare - Therapist Delivery: assessed - Assist/Cues: none BED MOBILITY: SUPINE to SIT - Assist Level: Minimal Assist - Device: use of bed rail, head of bed elevated - Therapist Delivery: assessed, educated, assisted - Assist/Cues: verbal, visual, and manual for log roll technique, lower extremity support FUNCTIONAL TRANSFERS: SIT<>STAND - Assist Level: Contact Guard Assist - Equipment: front wheeled walker and gait belt - Surface: Bed, Chair - Therapist Delivery: assessed, instructed, educated, assisted - Assist/Cues: verbal, tactile, and visual for technique, proper hand placement TOILET TRANSFER - Assist Level: Minimal Assist - Equipment: front wheeled walker and gait belt - Approach: To and From, Ambulating - Surface: Toilet - Therapist Delivery: assessed, instructed, educated, assisted - Assist/Cues: verbal, tactile, and visual for technique, guided practice - body positioning and alignment FUNCTIONAL MOBILITY: In-room mobility performed with supervision/stand by assistance and front wheeled walker and gait [...] placement of extremities to optimize safetyand technique. LB Dressing: - Patient instructed on dressing compensatory strategies and aids to assist with don/doff process. Emphasized don/doff strategies including figure four technique. Recommended adaptive equipment: Blender Laborer and Sock Aid. Toileting - Patient instructed on accurate positioning and modifications for toileting skills with hygiene care and clothing management. Education and recommendations provided on options including toilet hygiene aid and/or toilet seat modifications. Bathing - Incision Care: - Educated patient/caregiver in bathing strategies including seated position with use of hand-held showerhead and/or long-handled sponge to optimize safety. If patient has an incision, to prevent infection, provided education for incisional care including use of liquid, non scented soap and clean wash cloth to dab NOT scrub incision, allow water to run over incision, and to avoid submerging or soaking the incision. Bed Mobility: - Patient instructed on compensatory strategies to improve transfer in/out of bed. Recommendations provided with adaptations for correct sequencing, technique, and modification tools as needed including leg artificial candy maker and/or bed adjustments. Bathroom DME: - Educated patient/caregiver regarding recommended use of bathroom safety equipment to optimize safety during bathing and toileting. Recommended DME: shower chair, grab bars, anti-slip strips, hand held shower hose, long-handled sponge Home Safety/Fall Prevention: - Educated patient/caregiver regarding home safety and fall prevention strategies to promote safetyand independence including use of recommended assistive device, wearing non-slip footwear, ensuringclear pathways, removing throw rugs, and good lighting throughout the home. Home Exercise Program: - Patient and/or family provided education on home exercise program and how to safely implement into daily routine to increase strength and range of motion. Patient was left in bedside chair at [...] patient/family. Barriers to Discharge Home: Current functional status Level of Care Needed - OT: Assistance with toileting, Assistance with toilet/shower transfers, Assistance with meal preparation, Assistance with dressing, Assistance with showering/bathing, Assistance with transportation, Assistance with housekeeping, Assistance with shopping Clinical Impression: Mr. Vega is progressing towards therapy goals. He grossly requires stand by assistance for functional mobility with use of front wheeled walker. Required minimal assistance for toilet transfer secondary to lower surface level. Demonstrated increased fatigue following standing grooming tasks therefore provided activity modifications and energy conservation strategies. Reviewed bathroom adaptive equipment to utilize at home to increase independence and reduce caregiver reliance. He remains below his functional baseline and would benefit from continued skilled occupational therapy services to progress towards baseline, to decrease caregiver burden, and to maximize safety/independence with return to meaningful daily activity. Plan OT Plan Comments: Next Session: LB dressing(AE needed); standing grooming; toileting process. Progress mobility Functional Goals: OT Goal #1: The patient will demonstrate the ability to complete toileting including clothing management, janiya-cares and transfer with supervision/set up assistance to progress towards prior level offunction OT Goal #1 Status: Progressing OT Goal #2: The patient will complete grooming tasks standing at sink for 5 + minutes with set up assistance to progress towards independence with self cares prior to discharge. OT Goal #2 Status: Progressing OT Goal #3: The patient will complete lower body dressing with AE and modified independence to progress independence with self cares prior to discharge. OT Goal #3 Status: Ongoing OT Goal #4: The patient will demonstrate/ verbalize understanding of DME/AE recommendations to maximize independence and home safety OT Goal #4 Status: Progressing Progress: Slow progress, limited activity tolerance Rehab potential: Mr. Vega has good potential to achieve established occupational therapy goals within the time frame outlined below. OT Frequency: OT Amount: 1 visit per day OT Frequency: 5 times per week OT Inpatient Duration : Until goals are met or hospital discharge Requires Inpatient OT Follow-Up: Yes OT - Next Inpatient Appointment: 08/26/23 Plan: Continue with current plan Treatment interventions may include: Treatment Interventions: Therapeutic exercise, Therapeutic functional activity, Self-care/home management, Cognitive skills training Occupational Therapy Attestation Statement: Patient agrees with the plan of care and goals. Billing: Time Spent with Patient Therapeutic Interventions Home Management Training (min): 25 min Time Tracking Total Timed Units (min): 25 min Total Treatment Time (min): 25 min Ivy Hernandez O.T. * Paula Hernandez M.D. - 08/25/2023 6:16 AM CDT UROLOGY CHIEF SERVICE PROGRESS NOTE SUBJECTIVE Kalen Vega was seen by the team during morning rounds. Postop day 10 s/p open bladder repair,right ureteral stent exchange. Remains afebrile, hemodynamically stable. We advanced to regular diet yesterday. He is tolerating this so far. 660 cc p.o. intake without nausea or vomiting. Had a bowel movement yesterday as well. Continues to pass gas. Appropriate urine output. Continues to ambulate, work with physical therapy OBJECTIVE Vital signs: Afebrile, HDS Physical Exam: General: No acute distress Neuro: Alert and oriented, no gross deficits. Cardiovascular: Tachycardic. Pulmonary: Normal respiratory effort. Abdomen: Non-tender, non-distended. midline lower abd incision with rayshawn in place, well approximated. Pelvic drain with serosanguinous output. : Tabares catheter in place draining clear yellow urine I/O ([id number]): Fifty-five cc serosanguineous from the drain 1 L urine output./24 H Labs: Hemoglobin 8.1 from 8.3 Cr 1.0 Cultures: Blood and urine cultures from 08/12 [...] symptomatic radiation cystitis and radiation proctitis. He was taking both Plavix and Xarelto last doses of each / On 08/11 developed worsening hematuria ultimately went into clot retention and was admitted locallyfor [facility]. He was subsequently transferred to [facility] 08/12 for difficulty irrigating his catheter despite the above. Hand irrigation was performed to clear approximately 400 cc clot to restore catheter drainage. CT cystogram was obtained which identified a bladder dome intraperitoneal perforation, adjacent to the long right distal ureteral stent curl. Tabares catheter is in the bladder lumen without significant residual clot. Status post open cystotomy closure and right ureteral stent exchange on 08/14. #Postop -Tabares catheter clear msith colored urine -incision closed with rayshawn given history of radiation -NG tube was removed 08/17/23 after patient began to pass gas -advanced to general 08/17, had an episode of emesis 08/18, NPO since -NGT replaced 08/[address] and nausea. 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, home Xarelto (holding since 08/11) --SubQ heparin initiated POD 0 --ppx 2.5 mg BID eliquis initiated 08/15 per [facility] med curbside recs --transition from eliquis ppx to heparin drip to allow for titration as needed as patient continuesrecovering from surgery --LE US obtained 5/8 PM due to patient's sustained tachycardia in the 1-2d prior, did show R DVT, unclear if acute or chronic --vascular medicine engaged re new finding DVT to assist with heparin drip dosing, we will continueheparin drip while inpatient, they are recommending switching to Xarelto discharge which we will do --plan to restart Xarelto per vascular Medicine recommendations when patient reliably tolerating regular diet, anticipate 08/24 # E coli bacteremia -nunez susceptible, currently on cefdinir -repeat blood cultures 08/14- no growth after 5 days # antiplatelet therapy -CAD status post cardiac stents (Plavix held since 08/11) -discussed with cardiology need for plavix, in review of his record they do recommend resuming plavis when it is safe to do so -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 Scheduled trospium Home Meds Resumed: Metoprolol, tamsulosin, rosuvastatin Held Home Meds: None Consults: TPN, IR Paula Hernandez M.D. 08/25/2023 Please page the Urology Chief Service with questions or concerns. Patient seen and discussed with Dr. Venegas, chief urology resident attendant honor bar. Pager during business hours: [phone] Pager after hours: [phone] * Emeterio Buchanan PCarlos, D.P.T., [facility] - 08/24/2023 10:46 AM CDT Physical Therapy Inpatient Treatment SUBJECTIVE Patient's Name: Kalen Vega Referring/Attending Provider: Boubacar Brock M.D. Reason for Referral: Physical Therapy Evaluate and Treat History of Present Illness: Kalen Vega is a 83 y.o. male who was admitted to [facility] in [place] on 08/13/2023 for Hematuria [R31.9] Precautions Other Precautions: Abdominal, fall precautions, monitor tachycardia and hypertension Pain Assessment: Pain Ratin/10 on a 0-10 point scale Patient/Caregiver Goals: No goals stated Subjective Comments: Patient agreed to session. Asking to use the restroom OBJECTIVE Vital Signs Vitals taken during session: Pulse rate: 93 bpm, Blood pressure: 155/85 mmHg, O2 sats: 99 %, and O2flow: Room air Outcome Measures: AM-PAC Inpatient Short Form: AM-PAC Basic Mobility (V.2) How much help from [...] 3-5 steps with a railing?: A Lot -[facility] Basic Mobility (V.2) Raw Score: 17 -[facility] Basic Mobility (V.2) Standardized Score: 39.67 Interpretation: Based on scoring guidelines using the raw score value: Those going to home had an average score at or above 18 Those going to facility had an average score at or below 17 Clinicians answer the [facility] Inpatient Short Form based on observed patient activity and/or clinical judgement (ie. patient can be scored without physically performing each activity) Therapeutic Interventions: ROLLING: Assistance Level: Supervision Device: head of bed elevated and bedrail Assistance/Cueing: verbal and visual for Adherence to activity precautions, Logrolling, Sequencing,and Technique Delivery: educated, instructed, and assessed SUPINE TO SIT: Assistance Level: Contact Guard Assistance Device: head of bed elevated and bedrail Assistance/Cueing: verbal, tactile, and visual for Adherence to activity precautions, Logrolling, Sequencing, and Technique Delivery: educated, instructed, assessed, and assisted SIT TO STAND: Assistance Level: Contact Guard Assistance Device: gait belt and front wheeled walker Surface: Bed Assistance/Cueing: verbal and visual for Upper extremity placement Delivery: educated and instructed STAND TO SIT: Assistance Level: Minimal Assistance of 1 Device: gait belt and front wheeled walker Surface: Toilet and lower height Assistance/Cueing: verbal, tactile, and visual for Adherence to activity precautions, Alignment with seated surface, Eccentric control, and Upper extremity placement Delivery: educated, instructed, assessed, and assisted GAIT: Distance: 4 meters Assistance Level:Contact Guard Assistance Device: gait belt and front wheeled walker Quality: decreased gait speed, decreased step height, decreased step length, decreased toe off Assistance/Cueing:verbal for Adherence to activity precautions and Pacing Delivery: educated, instructed, and assessed Education : The patient/family educated on safe transfer techniques with functional mobility/activity. The patient's status was discussed and the following coordination of care occurred with the RN Patient was left on the toilet at end of session with call light in reach, all needs met and questions answered. Assessment Discharge Therapy Needs - PT: Ongoing skilled physical therapy Skilled therapy can include physical therapy provided by home health, outpatient clinic, or a post-acute facility. The location of these services is determined by the patient's care team in partnership with patient/family. Level of Care Needed - PT: Assistance with bed mobility, Assistance with transfers (Comment), Assistance with walking and moving around the home, Assistance with stairs Barriers to Discharge Home: Current functional status, Safety concerns, Fall risk Barriers to Discharge Comments: Patient could have / supervision from family if necessary. From a physical therapy perspective, the level of care above has been recommended for Mr. Vega after hospital discharge. This level of care is based on his functional abilities during today's session. This may change throughout the hospital course and will be updated as appropriate. Clinical Impression: Patient continues to participate well during therapy sessions, and is demonstrating improved ability to complete functional tasks in general. He was able to demonstrate appropriate logroll technique with supine to sitting today, was able to demonstrate appropriate hand placement cues. Session limited by toileting needs secondary to bowel regimen the patient is undergoing. Nevertheless expect patient to continue making progress with mobility given his motivation and prior level of function. Physical therapy will continue to follow to address functional decline and mobility needs. Rehab potential: Mr. Vega has Good potential to achieve established physical therapy goals within the time frame outlined below. Progress: Progressing toward goals Plan PT Plan Comments: Progress independence with bed mobility with less reliance on hospital bed features. Progress transfers and ambulation distance/tolerance/quality as able. Initiate stair training when appropriate. Functional Goals: PT Inpatient Goals PT Goal #1: Patient will perform bed mobility independently and without use of bed features to promote return to functional baseline. PT Goal #2: Patient will perform [id number] transfer with modified independence and least restrictive gait aid promote functional independence upon discharge. PT Goal #3: Patient will ambulate 20 m with modified independence and least restrictive gait aid topromote independent mobility within the home. Treatment Plan: Plan: Continue with current plan PT Amount: 1 visit per day PT Frequency: 5 times per week PT Inpatient Duration : Until goals are met or hospital discharge Requires Inpatient Follow-Up: Yes PT - Next Inpatient Appointment: 08/25/23 Patient agrees with the plan of care and goals. Treatment interventions may include: Treatment/Interventions: Therapeutic exercise, Neuromuscular re-education, Gait training, Self-care/home management, Therapeutic functional activity Billing: Time Spent with Patient Therapeutic Interventions Therapeutic Activity (min): 18 min Time Tracking Total Timed Units (min): 18 min Total Treatment Time (min): 18 min Naseem Buchanan P.T., D.P.T., GCS * Tayler Mckeon PharmJonahDJonah, R.Ph. 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 OBJECTIVE Home medications: Held: amlodipine, clopidogrel, mirabegron, xarelto Changed: none Patient's own medications: Enzalutamide 120 mg daily Prophylaxis: low-intensity heparin nomogram Parenteral Nutrition: PN indication: small bowel obstruction PN start date: 08/22/23 Lab Results Component Value Date NA 140 08/24/2023 KSERUM 3.6 08/24/2023 KPLASMA 5.5 (H) 08/13/2023 CL 106 08/24/2023 BICARB 26 08/24/2023 CREATININE 1.14 08/24/2023 EGFRNONBLKAA 53 (L) 11/13/2020 EGFRBLKAA >60 11/13/2020 BUN 16 08/24/2023 ANIONGAP 8 08/24/2023 GLUCOSE 124 08/24/2023 CALCIUM 7.4 (L) 08/24/2023 Magnesium, S Date Value Ref Range Status 08/24/2023 2.3 1.7 - 2.3 mg/dL Final 08/23/2023 2.2 1.7 - 2.3 mg/dL Final Phosphorus (Inorganic), S Date Value Ref Range Status 08/24/2023 2.3 (L) 2.5 - 4.5 mg/dL Final 08/23/2023 2.1 (L) 2.5 - 4.5 mg/dL Final Weights for the past 120 hrs (Last 3 readings): Weight 08/22/23 1628 95.3 kg 08/19/23 1400 90.2 kg Triglycerides Date Value Ref Range Status 08/23/2023 106 mg/dL Final Comment: ----REFERENCE VALUE---- Normal: <150 mg/dL Borderline High: 150-199 mg/dL High: 200-499 mg/dL Very High: > or =500 mg/dL 08/21/2023 98 mg/dL Final Comment: ----REFERENCE VALUE---- Normal: <150 mg/dL Borderline High: 150-199 mg/dL High: 200-499 mg/dL Very High: > or =500 mg/dL EXT Triglycerides Date Value Ref Range Status 02/07/2023 145 <150 mg/dL Final 04/12/2022 155 (H) 0 - 149 mg/dL Final Parenteral Nutrition: The parenteral nutrition regimen volume and nutrient content is as follows: Total volume: 1000 mL over 24 hours Amino acids: 90 grams (1.16 g/kg; IBW of 77.8 kg) Dextrose: 150 grams SMOF Lipids: 50 grams (36% of total kcal) Total Kcal/day: 1370 based on 84 % Garcia-Williams Non-standard additives: K 80 mEq Phos 30 mmol MAX chloride Thiamine 100 mg daily (D4) ASSESSMENT / PLAN CPN renewed per NSS recommendations; K increased to 80 mEq, phos increased to 30 mmol/day. BMP, mag, phos with AM labs 08/24 ordered Ceftriaxone 2 gm Q 24hr started 08/14--> cefdinir 300 mg PO BID on 08/21 for UTI. Needs LOT determined. Tayler Mckeon Pharm.D., R.Ph. * Jennifer Millard M.D. - 08/24/2023 8:51 AM CDT Nutrition Support Service Progress Note Date of Service: 08/24/2023 SUBJECTIVE HISTORY OF PRESENT ILLNESS The Nutrition Support Service and I reviewed the clinical notes, clinical status of the patient, nutrition program, and lab test results. 83 y.o. male with significant for metastatic prostate cancer, recurrent rectal bleeding, radiation proctitis, radiation cystitis, nephrosis and right atrophic kidney, who has been admitted in the setting of recurrent rectal bleeding, urinary obstructive symptoms, and hematuria after presenting to emergency department with symptoms of complete obstruction.He was noted to have bladder dome intraperitoneal perforation on imaging and underwent open cystotomy closure and right ureteral stent exchange on the 14 of August. OBJECTIVE VITAL SIGNS BP 141/68 (BP Location: Right arm;Upper, Patient Position: Semi-recumbent) Pulse 93 Temp 37 ??C(Oral) Resp 17 Ht 180 cm Wt 95.3 kg SpO2 99% BMI 29.41 kg/m?? PHYSICAL EXAMINATION General: Alert DIAGNOSTICS Results from last 7 days Lab Units 08/24/23 0528 08/23/23 0342 08/22/23 0240 SODIUM mmol/L 140 < > 136 CHLORIDE mmol/L 106 < > 97* CREATININE mg/dL 1.14 < > 1.37* ESTIMATED GFR EGFR mL/min/BSA 63 < > 51* BUN mg/dL 16 < > 17 GLUCOSE S mg/dL 124 < > 122 CALCIUM mg/dL 7.4* < > 7.2* MAGNESIUM mg/dL 2.3 < > -- PHOSPHORUS INORGANIC mg/dL 2.3* < > -- ALBUMIN g/dL 2.5* < > 2.6* BILIRUBIN TOTAL mg/dL -- -- 0.4 ALK PHOS U/L -- -- 100 ALT U/L -- -- 14 AST U/L -- -- 25 < > = values in this interval not displayed. ASSESSMENT / PLAN PN to be renewed tonight with change of potassium of 80 and phosphorus of 30. On clear liquid diet and patient said plan is full liquids - will await order change. BMP, magnesium, phosphorus tomorrow. #1 Hematuria Please page [facility] ([phone]) or [facility] ([phone]) Nutrition Support Service pager with questions. * Paula Hernandez M.D. - 08/24/2023 6:13 AM CDT UROLOGY CHIEF SERVICE PROGRESS NOTE SUBJECTIVE Kalen Vega was seen by the team during morning rounds. Postop day 9 s/p open bladder repair, right ureteral stent exchange. Remains afebrile, hemodynamically stable. NG tube removed yesterday. Tolerating clear so far, 300 cc intake without nausea or vomiting. Had several soft bowel movements over the course of the day yesterday including some formed components. Continues to pass gas. Does not feel distended. Ambulating. Working with physical therapy OBJECTIVE Vital signs: Afebrile, HDS Physical Exam: General: No acute distress Neuro: Alert and oriented, no gross deficits. Cardiovascular: Tachycardic. Pulmonary: Normal respiratory effort. Abdomen: Non-tender, non-distended. midline lower abd incision with rayshawn in place, well approximated. Pelvic drain with serosanguinous output. : Tabares catheter in place draining light smith I/O ([id number]): Forty-two cc serosanguineous from the drain 2.2 L urine output./24 H Labs: Hemoglobin 8.1 from 8.3 Cr 1.27 stable Cultures: Blood and urine cultures from 08/12 [...] symptomatic radiation cystitis and radiation proctitis. He was taking both Plavix and Xarelto last doses of each 08/11 On 08/11 developed worsening hematuria ultimately went into clot retention and was admitted locallyfor CBI. He was subsequently transferred to [facility] 08/12 for difficulty irrigating his catheter despite the above. Hand irrigation was performed to clear approximately 400 cc clot to restore catheter drainage. CT cystogram was obtained which identified a bladder dome intraperitoneal perforation, adjacent to the long right distal ureteral stent curl. Tabares catheter is in the bladder lumen without significant residual clot. Status post open cystotomy closure and right ureteral stent exchange on 08/14. #Postop -Tabares catheter clear smith colored urine -incision closed with rayshawn given history of radiation -NG tube was removed 08/17/23 after patient began to pass gas -advanced to general 08/17, had an episode of emesis 08/18, NPO since -NGT replaced 08/[address] and nausea. 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, home Xarelto (holding since 08/11) --SubQ heparin initiated POD 0 --ppx 2.5 mg BID eliquis initiated 08/15 per [facility] med curbside recs --transition from eliquis ppx to heparin drip to allow for titration as needed as patient continuesrecovering from surgery --LE US obtained 5/8 PM due to patient's sustained tachycardia in the 1-2d prior, did show R DVT, unclear if acute or chronic --vascular medicine engaged re new finding DVT to assist with heparin drip dosing, we will continueheparin drip while inpatient, they are recommending switching to Xarelto discharge which we will do --plan to restart Xarelto per vascular Medicine recommendations when patient reliably tolerating regular diet, anticipate 08/24 # E coli bacteremia -nunez susceptible, currently on cefdinir -repeat blood cultures 08/14- no growth after 5 days # antiplatelet therapy -CAD status post cardiac stents (Plavix held since 08/11) -discussed with cardiology need for plavix, in review of his record they do recommend resuming plavis when it is safe to do so -we will have 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 Scheduled trospium Home Meds Resumed: Metoprolol, tamsulosin, rosuvastatin Held Home Meds: None Consults: TPN, IR Paula Hernandez M.D. 08/24/2023 Please page the Urology Chief Service with questions or concerns. Patient seen and discussed with Dr. Venegas, chief urology resident attendant honor bar. Pager during business hours: [phone] Pager after hours: [phone] * Deanne Mike L.G.S.W., M.S.W. - 08/23/2023 11:25 AM CDT SUBJECTIVE Social Work spoke with [facility]. They cannot provide prison at this time. They can provide OT/PT but request a new referral with updated discharge date when known. Social Work inquired with Nursing and Service regarding PICC, TPN lipids, and NG tube. NG tube is currently used for medication. PICC line is currently used for TPN/lipids. OBJECTIVE Service and Nursing are hopeful for removal of NG tube 08/23/23-08/24/23. Service and Nursing are hopeful for discontinuation of PICC and TPN/lipids prior to discharge. Patient has anticipated discharge date of 08/24/23-08/26/23. Referrals sent: [facility] [place] - DECLINED (out of service area) [facility] ASSESSMENT / PLAN ASSESSMENT Patient has robust family support including a son living with him. PLAN Patient desires home health care through [facility]. Social Work will continue to follow to provide support. Social Work will continue to assist with discharge needs. Shorty Sun, M.S.W. 08/23/23 * Jazmine Benítez R.N., C.W.C.N. - 08/23/2023 11:[address] [facility] Wound RN consulted to assess Kalen Vega skin alterations. Wound assessment, pain, and Wilberto score noted in the flowsheet. Images taken by staff at the bedside and are available in QREADS. History: Per provider note, Mr. Kalen Vega is a 83 y.o. male with past medical history remarkable for metastatic prostate cancer, prior DVT on anticoagulation with xarelto, CAD s/p PCI on plavix, radiation proctitis with recurrent rectal bleeding, hydronephrosis s/p stent and hematuria who is transferred from [place] [facility] with 3 days of hematuria and recent history of rectal bleeding whichhas since resolved. 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 Patient reports having felt a spot there for quite some time but not knowing what it is. Possible etiology could be pilonidal cyst. Areas has built-up edges consisted with scar tissues and resembling callus. There is also suspected MASD in the area at this time. May be managed by floor RNs. Please see wound assessment and wound care recommendations below. 08/23/23 1030 Wound 08/23/23 Other Moisture Associated Skin Damage Gluteal cleft Mid vs. Pilonidal Cyst? Date First Assessed/Time First Assessed: 08/23/23 0052 Present on Original Admission: (c) Yes WoundApproximate Age at First Assessment: Unknown Wound Exact Age at First Assessment: (c) Primary WoundType: Other Moisture Associated Skin Damage ... Date Wound Image Taken 08/23/23 Pain Score 0 - none *Shape Irregular *Tunneling None *Signs of Infection None Unable to Measure Y *Wound Bed Closed;Turin;Red Tissue Exposed None Odor None *Exudate Amount None Janiya-wound Assessment Dry;Intact;Brown;Scar *Primary Dressing Liquid skin protectant (SurePrep) *Primary Dressing Frequency of Change Daily & PRN *Secondary Dressing Foam (Sacral Mepilex Border) *Secondary Dressing Frequency of Change Every third day & PRN Secondary Dressing Changed Reinforced (Lifted for assessment and reapplied) Secondary Dressing Status Clean;Dry;Intact Lengthy Treatment > 30 minutes > 30 minutes Ongoing management Nursing;Wound/form block maker Partial head to toe skin assessment completed as patient unable to turn and no other concerns DRESSING RECOMMENDATIONS: #1 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 Pat dry. -Apply SurePrep wand or spray and allow to dry completely. Reapply once daily and PRN. -Apply a sacral Mepilex?? border dressing to cover the gluteal cleft/coccyx/sacral area. -Ensure the dressing is in full contact with the skin to prevent moisture- related skin breakdown. -Change every 3 days and PRN. Recommended interventions for pressure redistribution and shear reduction: Offload heels on pillows at all times when in bed. Full 30 degree turns side to side every 2 hours with supine positioning only for meals. Reposition at least every hour while in the chair. Reposition medical devices per policy. Assess and pad the skin under and surrounding the medical devices with a prophylactic foam dressing. Keep the HOB below 30 degrees except for meals unless medically contraindicated. Apply a prophylactic sacral Mepilex?? border dressing to cover the coccyx/sacral area. Ensure the dressing is in full contact with the skin to prevent moisture- related skin breakdown. Lift twice daily to assess when used for prevention. Change every 3 days and PRN. Recommended interventions for moisture control: Utilize the breathable incontinence underpads while in bed. Adult briefs should only be worn while ambulating or in the chair. Cleanse with foaming cleanser or wipes after each incontinence episode and for routine hygiene cares. Apply liquid skin protectant as directed. Consult recommendations: NA Education: Discussed the plan of care with the patient and nursing. They agree to the plan. The WOC RN will sign-off. Please place a wound care consult for any new concerns. Electronically signed by: Jazmine Benítez R.N., C.MelindaCJonahN. 08/23/23 11:10 AM CDT * Emeterio Buchanan, P.T., D.P.T., [facility] - 08/23/2023 11:02 AM CDT Physical Therapy Inpatient Treatment SUBJECTIVE Patient's Name: Kalen Vega Referring/Attending Provider: Boubacar Brock M.D. Reason for Referral: Physical Therapy Evaluate and Treat History of Present Illness: Kalen Vega is a 83 y.o. male who was admitted to [facility] in [place] on 08/13/2023 for Hematuria [R31.9] Precautions Other Precautions: Abdominal, fall precautions, monitor tachycardia and hypertension Pain Assessment: Pain Ratin/10 on a 0-10 point scale Patient/Caregiver Goals: No goals stated Subjective Comments: Patient agreed to session. OBJECTIVE Vital Signs Vitals taken during session: Pulse rate: 94-105 bpm, Blood pressure: 133/74 to 142/82 mmHg, MAP: 87-95, O2 sats: 95-96 %, and O2 flow: Room air Outcome Measures: [facility] Inpatient Short Form: -[facility] Basic Mobility (V.2) How much help [...] 3-5 steps with a railing?: A Lot -[facility] Basic Mobility (V.2) Raw Score: 17 -[facility] Basic Mobility (V.2) Standardized Score: 39.67 Interpretation: Based on scoring guidelines using the raw score value: Those going to home had an average score at or above 18 Those going to facility had an average score at or below 17 Clinicians answer the -[facility] Inpatient Short Form based on observed patient activity and/or clinical judgement (ie. patient can be scored without physically performing each activity) Therapeutic Interventions: SIT TO STAND: Assistance Level: Contact Guard Assistance Device: gait belt and front wheeled walker Surface: Bed and Chair Assistance/Cueing: verbal and visual for Anterior weight shifting and Upper extremity placement Delivery: educated, instructed, and assessed STAND TO SIT: Assistance Level: Contact Guard Assistance Device: gait belt and front wheeled walker Surface: Bed and Chair Assistance/Cueing: verbal and visual for Alignment with seated surface, Eccentric control, and Upper extremity placement Delivery: educated, instructed, assessed, and assisted GAIT: Distance: 30 meters x2 Assistance Level:Minimal Assistance of 1 Device: gait belt and front wheeled walker Quality: decreased gait speed, decreased heel strike, decreased step height, decreased step length,decreased toe off, forward flexed posture Assistance/Cueing:verbal for Breathing Techniques and Upright posture Delivery: educated, instructed, assessed, and assisted The patient's status was discussed and the following coordination of care occurred with the RN and Family/Caregiver Patient was left in bedside chair at end of session with call light in reach, all needs met and questions answered. Assessment Discharge Therapy Needs - PT: Ongoing skilled physical therapy Skilled therapy can include physical therapy provided by home health, outpatient clinic, or a post-acute facility. The location of these services is determined by the patient's care team in partnership with patient/family. Level of Care Needed - PT: Assistance with bed mobility, Assistance with transfers (Comment), Assistance with walking and moving around the home, Assistance with stairs Barriers to Discharge Home: Current functional status, Safety concerns, Fall risk Barriers to Discharge Comments: Patient could have 24/7 supervision from family if necessary. From a physical therapy perspective, the level of care above has been recommended for Mr. Vega after hospital discharge. This level of care is based on his functional abilities during today's session. This may change throughout the hospital course and will be updated as appropriate. Clinical Impression: Patient was able to tolerate activity a lot better today as evidenced by his ability to perform twobouts of ambulation during session this morning. Vital signs were stable throughout with no adversesigns or symptoms. He demonstrates good motivation to work on improving his mobility and regaining independence. Patient is still at significant increased risk for falls due to lower extremity weakness, impaired standing balance, and impaired activity tolerance requires ongoing therapy to address functional decline and assist with discharge planning. Rehab potential: Mr. Vega has Good potential to achieve established physical therapy goals within the time frame outlined below. Progress: Slow progress, medical status limitations, Slow progress, limited activity tolerance Plan PT Plan Comments: Progress independence with bed mobility with less reliance on hospital bed features. Progress transfers and ambulation distance/tolerance/quality as able. Initiate stair training when appropriate. Functional Goals: PT Inpatient Goals PT Goal #1: Patient will perform bed mobility independently and without use of bed features to promote return to functional baseline. PT Goal #2: Patient will perform [id number] transfer with modified independence and least restrictive gait aid promote functional independence upon discharge. PT Goal #3: Patient will ambulate 20 m with modified independence and least restrictive gait aid topromote independent mobility within the home. PT Goal #4: This is Treatment Plan: Plan: Continue with current plan PT Amount: 1 visit per day PT Frequency: 5 times per week PT Inpatient Duration : Until goals are met or hospital discharge Requires Inpatient Follow-Up: Yes PT - Next Inpatient Appointment: 08/24/23 Patient agrees with the plan of care and goals. Treatment interventions may include: Treatment/Interventions: Therapeutic exercise, Neuromuscular re-education, Gait training, Self-care/home management, Therapeutic functional activity Billing: Time Spent with Patient Therapeutic Interventions Therapeutic Activity (min): 29 min Time Tracking Total Timed Units (min): 29 min Total Treatment Time (min): 29 min Naseem Buchanan P.T., D.P.T., GCS * Demarco Salazar Pharm.D., R.Ph., [facility] - 08/23/2023 10:19 AM CDT Pharmacist Progress Note Reason for admission: hematuria s/p open bladder repair, R ureteral stent exchange 08/14, R DVT on LEUS 08/16 PM - unclear if acute or chronic PMH: Metastatic prostate cancer, 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 Ceftriaxone 2 gm Q 24hr started 08/14. Converted to to cefdinir 300 mg PO BID on 08/21. Parenteral Nutrition: PN indication: small bowel obstruction PN start date: 08/22/23 Lab Results Component Value Date NA 138 08/23/2023 KSERUM 3.1 (L) 08/23/2023 KPLASMA 5.5 (H) 08/13/2023 CL 101 08/23/2023 BICARB 29 08/23/2023 CREATININE 1.27 08/23/2023 EGFRNONBLKAA 53 (L) 11/13/2020 EGFRBLKAA >60 11/13/2020 BUN 14 08/23/2023 ANIONGAP 8 08/23/2023 GLUCOSE 128 08/23/2023 CALCIUM 7.0 (L) 08/23/2023 Magnesium, S Date Value Ref Range Status 08/23/2023 2.2 1.7 - 2.3 mg/dL Final 08/21/2023 2.3 1.7 - 2.3 mg/dL Final Phosphorus (Inorganic), S Date Value Ref Range Status 08/23/2023 1.8 (L) 2.5 - 4.5 mg/dL Final 08/21/2023 2.6 2.5 - 4.5 mg/dL Final Weights for the past 120 hrs (Last 3 readings): Weight 08/22/23 1628 95.3 kg 08/19/23 1400 90.2 kg 08/18/23 1022 94.8 kg Triglycerides Date Value Ref Range Status 08/23/2023 106 mg/dL Final Comment: ----REFERENCE VALUE---- Normal: <150 mg/dL Borderline High: 150-199 mg/dL High: 200-499 mg/dL Very High: > or =500 mg/dL 08/21/2023 98 mg/dL Final Comment: ----REFERENCE VALUE---- Normal: <150 mg/dL Borderline High: 150-199 mg/dL High: 200-499 mg/dL Very High: > or =500 mg/dL EXT Triglycerides Date Value Ref Range Status 02/07/2023 145 <150 mg/dL Final 04/12/2022 155 (H) 0 - 149 mg/dL Final Parenteral Nutrition: The parenteral nutrition regimen volume and nutrient content is as follows: Total volume: 1000 mL over 24 hours Amino acids: 90 grams (1.16 g/kg; IBW of 77.8 kg) Dextrose: 150 grams SMOF Lipids: 50 grams (36% of total kcal) Total Kcal/day: 1370 based on 84 % Garcia-Williams Non-standard additives: MAX chloride Thiamine 100 mg daily (D2/3) ASSESSMENT / PLAN CPN renewed per NSS recommendations; no changes for today. Potassium was low early AM at 3.1 mmol/L. Phosphorus was also low at 1.8 mg/dL; both were repleted with 30 mmol IV Kphos. Rechecking BMP, Mg, and Phos tomorrow with AM labs. Pedrito Salazar Pharm.D., R.Ph., BCPS * Jennifer Millard M.D. - 08/23/2023 10:12 AM CDT Nutrition Support Service Progress Note Date of Service: 08/23/2023 SUBJECTIVE HISTORY OF PRESENT ILLNESS The Nutrition Support Service and I reviewed the clinical notes, clinical status of the patient, nutrition program, and lab test results. 83 y.o. male with significant for metastatic prostate cancer, recurrent rectal bleeding, radiation proctitis, radiation cystitis, nephrosis and right atrophic kidney, who has been admitted in the setting of recurrent rectal bleeding, urinary obstructive symptoms, and hematuria after presenting to emergency department with symptoms of complete obstruction.He was noted to have bladder dome intraperitoneal perforation on imaging and underwent open cystotomy closure and right ureteral stent exchange on the 14 of August. OBJECTIVE VITAL SIGNS BP 133/62 Pulse 90 Temp 36.4 ??C (Oral) Resp 16 Ht 180 cm Wt 95.3 kg SpO2 93% BMI 29.41 kg/m?? PHYSICAL EXAMINATION General: Alert NG still in. DIAGNOSTICS Results from last 7 days Lab Units 08/23/23 0342 08/22/23 0240 SODIUM mmol/L 138 136 CHLORIDE mmol/L 101 97* CREATININE mg/dL 1.27 1.37* ESTIMATED GFR EGFR mL/min/BSA 56* 51* BUN mg/dL 14 17 GLUCOSE S mg/dL 128 122 CALCIUM mg/dL 7.0* 7.2* MAGNESIUM mg/dL 2.2 -- PHOSPHORUS INORGANIC mg/dL 1.8* -- ALBUMIN g/dL 2.3* 2.6* BILIRUBIN TOTAL mg/dL -- 0.4 ALK PHOS U/L -- 100 ALT U/L -- 14 AST U/L -- 25 ASSESSMENT / PLAN NG 700 ML. Hypophosphatemia and hypokalemia. Team replaced phosphorus and potassium.. PN to be renewed tonight without change. BMP, magnesium, phosphorus tomorrow. #1 Hematuria Please page [facility] ([phone]) or [facility] ([phone]) Nutrition Support Service pager with questions. * Ivy Hernandez O.Maira. - 08/23/2023 8:30 AM CDT Occupational Therapy [facility] Inpatient Treatment SUBJECTIVE Patient's Name: Kalen Vega Referring/Attending Provider: Boubacar Brock M.D. Reason for Referral: Occupational Therapy Evaluation and Treatment History of Present Illness: Kalen Vega is a 83 y.o. male who was admitted to [facility] in [place] on 08/13/2023 for Hematuria [R31.9]. Precautions Other Precautions: Abdominal, fall precautions, monitor tachycardia and hypertension Pain Assessment: Pain not reported during session. Subjective Comments: Agreeable to therapy session. Team Communication: The patient's status was discussed and coordination of care occurred with RN, PT OBJECTIVE Vital Signs: Vitals monitored throughout session; within normal ranges. Outcome Measures: AM-[facility] Inpatient Short Form: Putting on and taking off regular lower body clothing?: A Little Putting on and taking off regular upper body clothing?: A Little Taking care of personal grooming such as brushing teeth?: None Bathing (including washing, rinsing, drying)?: A lot Toileting, which includes using toilet, bedpan, or urinal?: A Little Eating meals?: A Little Daily Activities Raw Score (max 24): 18 Daily Activities Standardized Score: 38.66 Interpretation: Based on scoring guidelines using the raw score value: Those going to home had an average score at or above 18 Those going to facility had an average score at or below 17 Clinicians answer the -[facility] Inpatient Short Form based on observed patient activity and/or clinical judgement (ie. patient can be scored without physically performing each activity) Cognition: No observable concerns with cognition at this time Will further assess and monitor as warranted Therapeutic Interventions: ACTIVITIES OF DAILY LIVING: GROOMING - Assist Level: Stand By Assist - Patient Location: Standing at sink - Activity: Brushing teeth - regular or soft brush, Washing hands - Therapist Delivery: assessed - Assist/Cues: none - Tolerated: 3 minutes standing LOWER BODY DRESSING - Assist Level: Total Assist - Patient Location: Edge of bed - LB Dressing Item: socks - Therapist Delivery: assessed, assisted, facilitated - Assist/Cues: verbal, tactile, and manual - Total assistance for donning socks secondary to bilateral leg wraps TOILETING - Assist Level: Minimal Assist, Moderate Assist - Patient Location: Toilet - Activity: clothing management, pericare - Therapist Delivery: assessed, educated, assisted, facilitated - Assist/Cues: verbal, tactile, visual, and manual for technique, sequencing - Patient incontinent of stool. Prompted patient to complete posterior janiya care with minimal assistance for clothing management. Therapist assisted with final wipes for thoroughness BED MOBILITY: SUPINE to SIT - Assist Level: Minimal Assist - Device: use of bed rail - Therapist Delivery: assessed, educated, assisted, facilitated - Assist/Cues: verbal, visual, and manual for log roll technique, trunk support, lower extremity support FUNCTIONAL TRANSFERS: SIT<>STAND - Assist Level: Contact Guard Assist - Equipment: front wheeled walker and gait belt - Surface: Bed, Chair - Therapist Delivery: assessed - Assist/Cues: none TOILET TRANSFER - Assist Level: Minimal Assist - Equipment: front wheeled walker and gait belt - Approach: To and From, Ambulating - Surface: Toilet - Therapist Delivery: assessed, instructed, educated, assisted - Assist/Cues: verbal, tactile, and visual for technique, sequencing, proper hand placement FUNCTIONAL MOBILITY: In-room mobility performed with contact guard assistance and front wheeled [...] placement of extremities to optimize safetyand technique. Toileting - Patient instructed on accurate positioning and modifications for toileting skills with hygiene care and clothing management. Education and recommendations provided on options including toilet hygiene aid and/or toilet seat modifications. Patient was left in bedside chair at [...] patient/family. Barriers to Discharge Home: Current functional status Level of Care Needed - OT: Assistance with toileting, Assistance with toilet/shower transfers, Assistance with meal preparation, Assistance with dressing, Assistance with showering/bathing, Assistance with transportation, Assistance with housekeeping, Assistance with shopping Clinical Impression: Mr. Vega is progressing towards therapy goals. He grossly required contact guard assistance forfunctional mobility with use of rolling walker. Encouraged active participation in toileting tasks with minimal to moderate assistance. Progressed activity tolerance, standing tolerance and balance with sink side grooming. At this time he requires assistance of one for activities of daily living and instrumental activities of daily living. He remains below his functional baseline and would benefit from continued skilled occupational therapy services to progress towards baseline, to decrease caregiver burden, and to maximize safety/independence with return to meaningful daily activity. Plan OT Plan Comments: Next Session: LB dressing(AE needed); standing grooming; toileting process. Progress mobility Functional Goals: OT Goal #1: The patient will demonstrate the ability to complete toileting including clothing management, janiya-cares and transfer with supervision/set up assistance to progress towards prior level offunction OT Goal #1 Status: Progressing OT Goal #2: The patient will complete grooming tasks standing at sink for 5 + minutes with set up assistance to progress towards independence with self cares prior to discharge. OT Goal #2 Status: Progressing OT Goal #3: The patient will complete lower body dressing with AE and modified independence to progress independence with self cares prior to discharge. OT Goal #3 Status: Ongoing OT Goal #4: The patient will demonstrate/ verbalize understanding of DME/AE recommendations to maximize independence and home safety OT Goal #4 Status: Progressing Progress: Slow progress, limited activity tolerance Rehab potential: Mr. Vega has good potential to achieve established occupational therapy goals within the time frame outlined below. OT Frequency: OT Amount: 1 visit per day OT Frequency: 5 times per week OT Inpatient Duration : Until goals are met or hospital discharge Requires Inpatient OT Follow-Up: Yes OT - Next Inpatient Appointment: 08/24/23 Plan: Continue with current plan Treatment interventions may include: Treatment Interventions: Therapeutic exercise, Therapeutic functional activity, Self-care/home management, Cognitive skills training Occupational Therapy Attestation Statement: Patient agrees with the plan of care and goals. Billing: Time Spent with Patient Therapeutic Interventions Home Management Training (min): 39 min Time Tracking Total Timed Units (min): 39 min Total Treatment Time (min): 39 min Ivy Hernandez O.T. * Paula Hernandez M.D. - 08/23/2023 6:02 AM CDT UROLOGY CHIEF SERVICE PROGRESS NOTE SUBJECTIVE Kalen Vega was seen by the team during morning rounds. Postop day 8 s/p open bladder repair, right ureteral stent exchange. Remains afebrile. NG tube in place, 700 cc light bilious output over the last 24 hours. We gave Gastrografin yesterday. Patient did have 4 bowel movements some of which were formed towards the end of the day yesterday. Has been passing gas. Denies nausea or vomiting. Does not feel the stent at this morning. OBJECTIVE Vital signs: Afebrile Physical Exam: General: No acute distress Neuro: Alert and oriented, no gross deficits. Cardiovascular: Tachycardic. Pulmonary: Normal respiratory effort. Abdomen: Non-tender, non-distended. midline lower abd incision with rayshawn in place, well approximated. Pelvic drain with serosanguinous output. : Tabares catheter in place draining clear yellow I/O ([id number]): 73 cc serosanguineous from the drain Seven hundred cc NG tube from 300 cc day prior Labs: Hemoglobin 8.3 from 7.8 WBC 10.1 from 12.1 Cr 1.27 stable Cultures: Blood and urine cultures from 08/12 growing nunez susceptible E coli Repeat blood culture 08/14 negative On ceftriaxone ASSESSMENT AND PLAN: Mr. Vega is a pleasant 83 y.o. 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 He was taking both Plavix and Xarelto last doses of each 08/11 On 08/11 developed worsening hematuria ultimately went into clot retention and was admitted locallyfor [facility]. He was subsequently transferred to [facility] 08/12 for difficulty irrigating his catheter despite the above. Hand irrigation was performed to clear approximately 400 cc clot to restore catheter drainage. CT cystogram was obtained which identified a bladder dome intraperitoneal perforation, adjacent to the long right distal ureteral stent curl. Tabares catheter is in the bladder lumen without significant residual clot. Status post open cystotomy closure and right ureteral stent exchange on 08/14. #Postop -Tabares catheter clear smith colored urine -incision closed with rayshawn given history of radiation -NG tube was removed 08/17/23 after patient began to pass gas -advanced to general 08/17, had an episode of emesis 08/18, NPO since -NGT replaced 08/[address] and nausea. 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, home Xarelto (holding since 08/11) --SubQ heparin initiated POD 0 --ppx 2.5 mg BID eliquis initiated 08/15 per vas med curbside recs --transition from eliquis ppx to heparin drip to allow for titration as needed as patient continuesrecovering from surgery --LE US obtained 5/8 PM due to patient's sustained tachycardia in the 1-2d prior, did show R DVT, unclear if acute or chronic --vascular medicine engaged re new finding DVT to assist with heparin drip dosing, we will continueheparin drip while inpatient, they are recommending switching to Xarelto discharge which we will do # E coli bacteremia -nunez susceptible, currently on ceftriaxone -repeat blood cultures 08/14- no growth after 5 days # antiplatelet therapy -CAD status post cardiac stents (Plavix held since 08/11) -discussed with cardiology need for plavix, in review of his record they do recommend resuming plavis when it is safe to do so -we will have 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 [facility] Summary: Diet: NPO, TPN Activity: Ad kong DVT PPX: heparin drip GI PPX: Pantoprazole Bowel Regimen:N/A IVF: D5W with KCL 20 @100 mL/hr Abx/Microbiology: Ceftriaxone Pain Control: Tylenol, oxycodone 08/18. Scheduled trospium Home Meds Resumed: Metoprolol, tamsulosin, rosuvastatin Held Home Meds: None Consults: TPN, IR Paula Hernandez M.D. 08/23/2023 Please page the Urology Chief Service with questions or concerns. Patient seen and discussed with Dr. Venegas, chief urology resident attendant honor bar. Pager during business hours: [phone] Pager after hours: [phone] * Chary Diamond M.A., O.T., BCP - 08/22/2023 4:19 PM CDT 08/22/23 8049 Reason Therapy Missed Reason Therapy Missed Receiving other care Patient had IR appointment this morning for placement of Power PICC. OT unavailable to return in the afternoon. Will attempt to see patient at a later date as appropriate and able. Chary Diamond M.A., O.T., BCP * Deanne Mike L.G.S.W., M.S.W. - 08/22/2023 4:06 PM CDT SUBJECTIVE Social Work met with patient and his son in his hospital room. Patient indicates a desire for home health care for PICC care, PT, and OT. [facility] Social Work sent referral. OBJECTIVE Patient is anticipated to remain at [facility] for 3-5 days. Referrals sent: [facility] ASSESSMENT / PLAN ASSESSMENT Patient has robust family support including a son living with him. PLAN Patient desires home health care through [facility]. Social Work will continue to follow to provide support. Social Work will continue to assist with discharge needs. Shorty Sun, M.S.W. 08/22/23 * Emeterio Buchanan P.T., D.P.T., GCS - 08/22/2023 2:27 PM CDT Physical Therapy Inpatient Treatment SUBJECTIVE Patient's Name: Kalen Vega Referring/Attending Provider: Boubacar Brock M.D. Reason for Referral: Physical Therapy Evaluate and Treat History of Present Illness: Kalen Vega is a 83 y.o. male who was admitted to [facility] in [place] on 08/13/2023 for Hematuria [R31.9] Precautions Other Precautions: Abdominal, fall precautions, monitor tachycardia and hypertension Pain Assessment: Pain Ratin/10 on a 0-10 point scale Patient/Caregiver Goals: No goals stated Subjective Comments: Patient agreed to session. Extended he was tired but was agreeable to working with therapy this afternoon. Of note patient received a unit of blood this morning. OBJECTIVE Vital Signs Vitals monitored throughout session; within normal ranges. Prior to mobility patient vitals were asfollows: Heart rate 97, blood pressure 127/78, oxygen saturation 96% on room air. Patient is in no acute distress throughout session, denied any symptoms indicative of orthostatic hypotension or respiratory distress. . Outcome Measures: [facility] Inpatient Short Form: -[facility] Basic Mobility (V.2) How much help [...] 3-5 steps with a railing?: A Lot [facility] Basic Mobility (V.2) Raw Score: 17 [facility] Basic Mobility (V.2) Standardized Score: 39.67 Interpretation: Based on scoring guidelines using the raw score value: Those going to home had an average score at or above 18 Those going to facility had an average score at or below 17 Clinicians answer the [facility] Inpatient Short Form based on observed patient activity and/or clinical judgement (ie. patient can be scored without physically performing each activity) Therapeutic Interventions: SIT TO STAND: Assistance Level: Contact Guard Assistance Device: gait belt and front wheeled walker Surface: Chair Assistance/Cueing: verbal for Adherence to activity precautions and Upper extremity placement Delivery: educated, instructed, and assessed STAND TO SIT: Assistance Level: Contact Guard Assistance Device: gait belt and front wheeled walker Surface: Chair Assistance/Cueing: verbal and visual for Adherence to activity precautions, Alignment with seated surface, Eccentric control, and Upper extremity placement Delivery: educated, instructed, assessed, and assisted GAIT: Distance: 20 meters Assistance Level:Minimal Assistance of 1 Device: gait belt and front wheeled walker Quality: decreased gait speed, decreased step height, decreased step length, decreased toe off, forward flexed posture Assistance/Cueing:verbal and visual for Adherence to activity precautions, Forward gaze, and Upright posture Delivery: educated, instructed, assessed, and assisted Education : The patient/family educated on safe transfer techniques with functional mobility/activity. Patient was left in bedside chair at end of session with call light in reach, all needs met and questions answered. Assessment Discharge Therapy Needs - PT: Ongoing skilled physical therapy Skilled therapy can include physical therapy provided by home health, outpatient clinic, or a post-acute facility. The location of these services is determined by the patient's care team in partnership with patient/family. Level of Care Needed - PT: Assistance with bed mobility, Assistance with transfers (Comment), Assistance with walking and moving around the home, Assistance with stairs Equipment Recommended - PT: Front-wheeled walker Barriers to Discharge Comments: Patient could have 24/ supervision from family if necessary. From a physical therapy perspective, the level of care above has been recommended for Mr. Vega after hospital discharge. This level of care is based on his functional abilities during today's session. This may change throughout the hospital course and will be updated as appropriate. Clinical Impression: Patient participated well this afternoon, was able to ambulate into the hallway with stable vitals but gait distance was limited by fatigue and impaired activity tolerance. He and his son report he has not eaten in several days, and he is hopeful that initiation of TPN will help with ability to work on progressing his activity with nursing and therapy. Patient is motivated, but is most limited bygeneralized weakness, impaired activity tolerance, and standing balance impairments. Physical therapy will continue to follow to address functional decline and assist with discharge planning as needed. Rehab potential: Mr. Vega has Good potential to achieve established physical therapy goals within the time frame outlined below. Progress: Slow progress, medical status limitations, Slow progress, limited activity tolerance Plan PT Plan Comments: Progress independence with bed mobility with less reliance on hospital bed features. Progress transfers and ambulation distance/tolerance/quality as able. Initiate stair training when appropriate. Functional Goals: PT Inpatient Goals PT Goal #1: Patient will perform bed mobility independently and without use of bed features to promote return to functional baseline. PT Goal #2: Patient will perform [id number] transfer with modified independence and least restrictive gait aid promote functional independence upon discharge. PT Goal #3: Patient will ambulate 20 m with modified independence and least restrictive gait aid topromote independent mobility within the home. Treatment Plan: Plan: Continue with current plan PT Amount: 1 visit per day PT Frequency: 5 times per week PT Inpatient Duration : Until goals are met or hospital discharge Requires Inpatient Follow-Up: Yes PT - Next Inpatient Appointment: 08/23/23 Patient agrees with the plan of care and goals. Treatment interventions may include: Treatment/Interventions: Therapeutic exercise, Neuromuscular re-education, Gait training, Self-care/home management, Therapeutic functional activity Billing: Time Spent with Patient Therapeutic Interventions Therapeutic Activity (min): 23 min Time Tracking Total Timed Units (min): 23 min Total Treatment Time (min): 23 min Naseem Buchanan P.T., D.P.T., GCS * Demarco Salazar Pharm.DJonah, R.Ph., [facility] - 08/22/2023 10:57 AM CDT Pharmacist Progress Note Reason for admission: hematuria s/p open bladder repair, R ureteral stent exchange 08/14, R DVT on LEUS 08/16 PM - unclear if acute or chronic PMH: Metastatic prostate cancer, 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 Ceftriaxone 2 gm Q 24hr started 08/14. Converted to to cefdinir 300 mg PO BID on 08/21. Parenteral Nutrition: PN indication: small bowel obstruction PN start date: 08/22/23 Lab Results Component Value Date NA 136 08/22/2023 KSERUM 3.2 (L) 08/22/2023 KPLASMA 5.5 (H) 08/13/2023 CL 97 (L) 08/22/2023 BICARB 28 08/22/2023 CREATININE 1.37 (H) 08/22/2023 EGFRNONBLKAA 53 (L) 11/13/2020 EGFRBLKAA >60 11/13/2020 BUN 17 08/22/2023 ANIONGAP 11 08/22/2023 GLUCOSE 122 08/22/2023 CALCIUM 7.2 (L) 08/22/2023 Magnesium, S Date Value Ref Range Status 08/21/2023 2.3 1.7 - 2.3 mg/dL Final 08/13/2023 1.9 1.7 - 2.3 mg/dL Final Phosphorus (Inorganic), S Date Value Ref Range Status 08/21/2023 2.6 2.5 - 4.5 mg/dL Final Weights for the past 120 hrs (Last 3 readings): Weight 08/19/23 1400 90.2 kg 08/18/23 1022 94.8 kg 08/18/23 0808 94.8 kg Triglycerides Date Value Ref Range Status 08/21/2023 98 mg/dL Final Comment: ----REFERENCE VALUE---- Normal: <150 mg/dL Borderline High: 150-199 mg/dL High: 200-499 mg/dL Very High: > or =500 mg/dL EXT Triglycerides Date Value Ref Range Status 02/07/2023 145 <150 mg/dL Final 04/12/2022 155 (H) 0 - 149 mg/dL Final Parenteral Nutrition: The parenteral nutrition regimen volume and nutrient content is as follows: Total volume: 1000 mL over 24 hours Amino acids: 90 grams (1.16 g/kg; IBW of 77.8 kg) Dextrose: 150 grams SMOF Lipids: 50 grams (36% of total kcal) Total Kcal/day: 1370 based on 84 % Garcia-Williams Non-standard additives: MAX chloride Thiamine 100 mg daily (D1/3) ASSESSMENT / PLAN CPN initiated per NSS recommendations with formula listed above. Rechecking BMP tomorrow. Mg and phos were WNL on 08/20; will wait for a full PN cycle to complete before ordering new collections. A TGlevel was obtained 08/21/23 and was 98 mg/dL at that time, so will refrain from ordering a new panelfor now. Lipids ordered as SMOF lipids. Continuous IV fluids with D5W + 20 mEq/L of KCl running at 100 mL/hr. Will schedule these to stop at the time of PN initiation tonight. Pedrito Salazar Pharm.D., R.Ph., BCPS * Paula Hernandez M.D. - 08/22/2023 6:06 AM CDT UROLOGY CHIEF SERVICE PROGRESS NOTE SUBJECTIVE Kalen Vega was seen by the team during morning rounds. Postop day 7 s/p open bladder repair, right ureteral stent exchange. Remains afebrile. Continues to have intermittent tachycardia. NG tube in place, 300 cc light bilious output over the last 24 hours. Patient did have bowel movement x2 over the last 24 hours. Nursing reports blood in the stool. No nausea. Passing some gas intermittently. OBJECTIVE Vital signs: Afebrile continues to have intermittent tachycardia Physical Exam: General: No acute distress Neuro: Alert and oriented, no gross deficits. Cardiovascular: Tachycardic. Pulmonary: Normal respiratory effort. Abdomen: Non-tender, non-distended. midline lower abd incision with rayshawn in place, well approximated. Pelvic drain with serosanguinous output. : Tabares catheter in place draining light smith colored urine I/O ([id number]): CBI on slow drip 75 cc serosanguineous from the drain 320 cc NG tube from 240 cc day prior Labs: Hemoglobin 7.8 from 8, 1 unit ordered given cardiac history WBC 12.1 from 13.4 Cr 1.37 stable Creatinine 3.2 repleted Cultures: Blood and urine cultures from 08/12 growing nunez susceptible E coli Repeat blood culture 08/14 negative On ceftriaxone ASSESSMENT AND PLAN: Mr. Vega is a pleasant 83 y.o. 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 He was taking both Plavix and Xarelto last doses of each / On 08/11 developed worsening hematuria ultimately went into clot retention and was admitted locallyfor CBI. He was subsequently transferred to [facility] 08/12 for difficulty irrigating his catheter despite the above. Hand irrigation was performed to clear approximately 400 cc clot to restore catheter drainage. CT cystogram was obtained which identified a bladder dome intraperitoneal perforation, adjacent to the long right distal ureteral stent curl. Tabares catheter is in the bladder lumen without significant residual clot. Status post open cystotomy closure and right ureteral stent exchange on 08/14. #Postop -Tabares catheter clear smith colored urine -incision closed with rayshawn given history of radiation -NG tube was removed 08/17/23 after patient began to pass gas -advanced to general 08/17, had an episode of emesis 08/18, NPO since -NGT replaced 08/[address] and nausea. 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, home Xarelto (holding since 08/11) --SubQ heparin initiated POD 0 --ppx 2.5 mg BID eliquis initiated 08/15 per [facility] med curbside recs --transition from eliquis ppx to heparin drip to allow for titration as needed as patient continuesrecovering from surgery --LE US obtained 5/8 PM due to patient's sustained tachycardia in the 1-2d prior, did show R DVT, unclear if acute or chronic --vascular medicine engaged re new finding DVT to assist with heparin drip dosing, we will continueheparin drip while inpatient, they are recommending switching to Xarelto discharge which we will do -Heparin drip to be temporarily held for IR PICC placement, confirmed with them they will start holding it when he is called down for procedure. # E coli bacteremia -nunez susceptible, currently on ceftriaxone -repeat blood cultures 08/14- no growth after 5 days # antiplatelet therapy -CAD status post cardiac stents (Plavix held since 08/11) -discussed with cardiology need for plavix, in review of his record they do recommend resuming plavis when it is safe to do so -we will have him follow up with his local brand marketing manager Comorbidities: --history of DVT status post IVC filter, home Xarelto (holding since 08/11) -CAD status post cardiac stents (Plavix held since 08/11) -hydronephrosis and atrophic right kidney managed with indwelling double-J stent (exchange at time of surgery 08/14) PLAN: NPO, continue IV fluids, IR PICC line and TPN today Maintain NGT, likely GGC today Maintain slow rate CBI Hospital Summary: Diet: NPO Activity: Ad kong DVT PPX: heparin drip GI PPX: Pantoprazole Bowel Regimen:N/A IVF: D5W with KCL 20 @100 mL/hr Abx/Microbiology: Ceftriaxone Pain Control: Tylenol, oxycodone 08/18. Scheduled trospium Home Meds Resumed: Metoprolol, tamsulosin, rosuvastatin Held Home Meds: None Consults: TPN, IR Paula Hernandez M.D. 08/22/2023 Please page the Urology Chief Service with questions or concerns. Patient seen and discussed with Dr. Venegas, chief urology resident attendant honor bar. Pager during business hours: [phone] Pager after hours: [phone] * Qamar Jim Pharm.D., R.Ph. - 08/21/2023 10:43 AM CDT Images from the original note were not included. Pharmacy Consult -Heparin Infusion with aPTT Management Assessment Nomogram Intensity: Low Indication: Deep Vein Thrombosis (DVT) Recent direct oral Factor Xa inhibitor use: Yes; Apixaban Last dose: on 08/17/23 at 0844 Baseline aPTT(sec): 29 Goal aPTT range: 45 - 60 seconds aPTT Results (Past Day) 08/21/2023 7:32 AM aPTT 49 Plan: aPTT is at goal Current dose rate: 11 units/kg/hr Maintain the rate of 11 units/kg/hr Next aPTT level order time (date & time): with AM labs Pharmacy will manage the heparin infusion based on the Heparin IV Monitoring by aPTT guidance document in [employer]. Qamar Jim Pharm.D., R.Ph. * Lizette Harvey M.D. - 08/21/2023 9:51 AM CDT UROLOGY CHIEF SERVICE PROGRESS NOTE SUBJECTIVE Kalen Vega was seen by the team during morning rounds. Postop day 6 s/p open bladder repair, right ureteral stent exchange. Remains afebrile. Continues to have intermittent tachycardia. CT obtained yesterday, demonstrated small bowel obstruction with transition point in pelvis near drain. NGT placed for decompression. Overnight, patient reports a small bowel movement, mixed consistency. Is no longer nauseous. Still having a few burps. Passing some gas. Remains on slow drip CBI. Catheter draining clear smith urine. Attempted to have PICC line placed last night for TPN, unable to place bedside. Plan for IR picc today. Remains NPO. OBJECTIVE Vital signs: Afebrile continues to have intermittent tachycardia Physical Exam: General: No acute distress Neuro: Alert and oriented, no gross deficits. Cardiovascular: Tachycardic. Pulmonary: Normal respiratory effort. Abdomen: Non-tender, less distended then yesterday. Wound vac was removed, midline lower abd incision with rayshawn in place, well approximated. Pelvic drain with serosanguinous output. : Tabares catheter in place draining clear smith colored urine I/O ([id number]): 1800 cc urine output 75 cc serosanguineous from the drain 2800 cc NGT effluent, bilious Labs: Hemoglobin 8.0 (8.9) WBC 13.4 (12.2) Cr 1.32 stable Cultures: Blood and urine cultures from 08/12 growing nunez susceptible E coli Repeat blood culture 08/14 negative On ceftriaxone ASSESSMENT AND PLAN: Mr. Vega is a pleasant 83 y.o. 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 He was taking both Plavix and Xarelto last doses of each / On 08/11 developed worsening hematuria ultimately went into clot retention and was admitted locallyfor CBI. He was subsequently transferred to [facility] 08/12 for difficulty irrigating his catheter despite the above. Hand irrigation was performed to clear approximately 400 cc clot to restore catheter drainage. CT cystogram was obtained which identified a bladder dome intraperitoneal perforation, adjacent to the long right distal ureteral stent curl. Tabares catheter is in the bladder lumen without significant residual clot. Status post open cystotomy closure and right ureteral stent exchange on 08/14. #Postop -Tabares catheter clear smith colored urine -incision closed with rayshawn given history of radiation -NG tube was removed 08/17/23 after patient began to pass gas -advanced to general 08/17, had an episode of emesis 08/18, NPO since -NGT replaced 08/[address] and nausea. Remain in place for now. Consider GG tomorrow. 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, home Xarelto (holding since 08/11) --SubQ heparin initiated POD 0 --ppx 2.5 mg BID eliquis initiated 08/15 per [facility] med curbside recs --transition from eliquis ppx to heparin drip to allow for titration as needed as patient continuesrecovering from surgery --LE US obtained 58 PM due to patient's sustained tachycardia in the 1-2d prior, did show R DVT, unclear if acute or chronic --vascular medicine engaged re new finding DVT to assist with heparin drip dosing, we will continueheparin drip while inpatient, they are recommending switching to Xarelto discharge which we will do -Heparin drip to be temporarily held for IR PICC placement, confirmed with them they will start holding it when he is called down for procedure. # E coli bacteremia -nunez susceptible, currently on ceftriaxone -repeat blood cultures 08/14- no growth after 5 days # antiplatelet therapy -CAD status post cardiac stents (Plavix held since 08/11) -discussed with cardiology need for plavix, in review of his record they do recommend resuming plavis when it is safe to do so -we will have him follow up with his local brand marketing manager Comorbidities: --history of DVT status post IVC filter, home Xarelto (holding since 08/11) -CAD status post cardiac stents (Plavix held since 08/11) -hydronephrosis and atrophic right kidney managed with indwelling double-J stent (exchange at time of surgery 08/14) PLAN: NPO, continue IV fluids, IR PICC line and TPN today Maintain NGT Maintain slow rate CBI Hospital Summary: Diet: Back to NPO for now Activity: Ad kong DVT PPX: heparin drip GI PPX: Pantoprazole Bowel Regimen:N/A IVF: D5W with KCL 20 @100 mL/hr Abx/Microbiology: Ceftriaxone Pain Control: Tylenol, oxycodone 08/18. Scheduled trospium Home Meds Resumed: Metoprolol, tamsulosin, rosuvastatin Held Home Meds: None Consults: TPN, IR Lizette Harvey M.D. 08/21/2023 Please page the Urology Chief Service with questions or concerns. Patient seen and discussed with Dr. Venegas, chief urology resident attendant honor bar. Pager during business hours: [phone] Pager after hours: [phone] * Lizette Harvey M.D. - 08/20/2023 8:08 AM CDT UROLOGY CHIEF SERVICE PROGRESS NOTE SUBJECTIVE Kalen Vega was seen by the team during morning rounds. Postop day 5 s/p open bladder repair, right ureteral stent exchange. Afebrile. Continues to have intermittent tachycardia. No episodes of vomiting however patient endorses burping and some nausea. Is passing small amounts of gas, no bowel movement. Tabares catheter in place draining thin merlot colored urine. On slow drip CBI however CBI was not dripping during rounds, I slightly increased the rate to allow drainage. Remains NPO, was on sips and chips. Surgical drain to 58 cc serosanguineous drainage. OBJECTIVE Vital signs: Afebrile continues to have intermittent tachycardia Physical Exam: General: No acute distress Neuro: Alert and oriented, no gross deficits. Cardiovascular: Tachycardic. Pulmonary: Normal respiratory effort. Abdomen: Non-tender, mildly-distended. Wound vac was removed, midline lower abd incision with rayshawn in place, well approximated. Area of scabbing at most inferior aspect. : Tabares catheter in place draining clear thin merlot colored urine I/O ([id number]): 240 cc p.o. intake 760 cc urine output 58 cc serosanguineous from the drain Labs: Hemoglobin 8.9 (8.8) WBC 12.2 (12.0) Cr 1.33 (1.38) Cultures: Blood and urine cultures from 08/12 growing nunez susceptible E coli Repeat blood culture 08/14 negative On ceftriaxone ASSESSMENT AND PLAN: Mr. Vega is a pleasant 83 y.o. 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 He was taking both Plavix and Xarelto last doses of each 08/11 On 08/11 developed worsening hematuria ultimately went into clot retention and was admitted locallyfor CBI. He was subsequently transferred to [facility] 08/12 for difficulty irrigating his catheter despite the above. Hand irrigation was performed to clear approximately 400 cc clot to restore catheter drainage. CT cystogram was obtained which identified a bladder dome intraperitoneal perforation, adjacent to the long right distal ureteral stent curl. Tabares catheter is in the bladder lumen without significant residual clot. Status post open cystotomy closure and right ureteral stent exchange on 08/14. 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, home Xarelto (holding since 08/11) --SubQ heparin initiated POD 0 --ppx 2.5 mg BID eliquis [facility] --transition from eliquis ppx to heparin drip to allow for titration as needed as patient continuesrecovering from surgery --LE US obtained 5/8 PM due to patient's sustained tachycardia in the 1-2d prior, did show R DVT, unclear if acute or chronic --vascular medicine engaged re new finding DVT to assist with heparin drip dosing, we will continueheparin drip while inpatient, they are recommending switching to Xarelto discharge which we will do # E coli bacteremia -nunez susceptible, currently on ceftriaxone -repeat blood cultures 08/14- no growth after 5 days # antiplatelet therapy -CAD status post cardiac stents (Plavix held since 08/11) -discussed with cardiology need for plavix, in review of his record they do recommend resuming plavis when it is safe to do so -we will have him follow up with his local brand marketing manager Comorbidities: --history of DVT status post IVC filter, home Xarelto (holding since 08/11) -CAD status post cardiac stents (Plavix held since 08/11) -hydronephrosis and atrophic right kidney managed with indwelling double-J stent (exchange at time of surgery 08/14) PLAN: NPO, start IV fluids, PICC line and TPN consult in place CT abd/pelvis with and without contrast today If he has any episodes of emesis, place NGT Maintain slow rate CBI Hospital Summary: Diet: Back to NPO for now Activity: Ad kong DVT PPX: heparin drip GI PPX: Pantoprazole Bowel Regimen:N/A IVF: LR 100 Abx/Microbiology: Ceftriaxone Pain Control: Tylenol, oxycodone 08/18. Scheduled trospium Home Meds Resumed: Metoprolol, tamsulosin, rosuvastatin Held Home Meds: None Consults: TPN Lizette Harvey M.D. 08/20/2023 Please page the Urology Chief Service with questions or concerns. Pager during business hours: [phone] Pager after hours: [phone] * Qamar Jim, Pharm.D., R.Ph. - 08/20/2023 7:46 AM CDT Images from the original note were not included. Pharmacy Consult -Heparin Infusion with aPTT Management Assessment Nomogram Intensity: Low Indication: Deep Vein Thrombosis (DVT) Recent direct oral Factor Xa inhibitor use: Yes; Apixaban Last dose: on 08/17/23 at 0844 Baseline aPTT(sec): 29 Goal aPTT range: 45 - 60 seconds aPTT Results (Past Day) 08/20/2023 08/19/2023 3:19 AM 10:57 AM aPTT 52 54 Plan: aPTT is at goal Current dose rate: 11 units/kg/hr Maintain the rate of 11 units/kg/hr Next aPTT level order time (date & time): 08/21/23 with AM labs Pharmacy will manage the heparin infusion based on the Heparin IV Monitoring by aPTT guidance document in [employer]. Qamar Jim Pharm.D., R.Ph. * Latter-DayLisa O.T., MOT - 08/19/2023 2:26 PM CDT Occupational Therapy [facility] Hospital Inpatient Treatment SUBJECTIVE Patient's Name: Kalen Vega Referring/Attending Provider: Boubacar Brock M.D. Reason for Referral: Occupational Therapy Evaluation and Treatment History of Present Illness: Kalen Vega is a 83 y.o. male who was admitted to [facility] in [place] on 08/13/2023 for Hematuria [R31.9]. Precautions Other Precautions: Abdominal, fall precautions, monitor tachycardia and hypertension Pain Assessment: Pain not reported during session. Subjective Comments: Patient greeted in chair and agreeable to therapy session. Team Communication: The patient's status was discussed and coordination of care occurred with RN OBJECTIVE Vital Signs: Vitals monitored throughout session; within normal ranges. Outcome Measures: [facility] Inpatient Short Form: Putting on and taking off regular lower body clothing?: A Little Putting on and taking off regular upper body clothing?: A Little Taking care of personal grooming such as brushing teeth?: None Bathing (including washing, rinsing, drying)?: A lot Toileting, which includes using toilet, bedpan, or urinal?: A Little Eating meals?: A Little Daily Activities Raw Score (max 24): 18 Daily Activities Standardized Score: 38.66 Interpretation: Based on scoring guidelines using the raw score value: Those going to home had an average score at or above 18 Those going to facility had an average score at or below 17 Clinicians answer the [facility] Inpatient Short Form based on observed patient activity and/or clinical judgement (ie. patient can be scored without physically performing each activity) Cognition: No observable concerns with cognition at this time Will further assess and monitor as warranted Therapeutic Interventions: FUNCTIONAL TRANSFERS: SIT<>STAND - Assist Level: Contact Guard Assist - Equipment: front wheeled walker and gait belt - Surface: Chair - Therapist Delivery: assessed, instructed - Assist/Cues: verbal for technique FUNCTIONAL MOBILITY: Mobility performed to practice household distances with contact guard assistance and front wheeled walker and gait belt ACTIVITIES OF DAILY LIVING: - The patient declined participation in activities of daily living this date. He was agreeable to functional mobility to progress activity tolerance/ endurance required for house hold distances. The patient reports fatigue following ambulation and rested to rest in bedside chair. OT will continue to progress independence in activities of daily living as able. Education/Training Provided: Functional Transfers: - Provided instruction and cues [...] patient/family. Barriers to Discharge Home: Current functional status Level of Care Needed - OT: Assistance with toileting, Assistance with toilet/shower transfers, Assistance with meal preparation, Assistance with dressing, Assistance with showering/bathing, Assistance with transportation, Assistance with housekeeping, Assistance with shopping Clinical Impression: The patient is progressing towards occupational therapy goals. He was able to participate in functional mobility today to progress activity tolerance and endurance required for household distances, as well as ADL tasks. The patient became fatigued following functional mobility and requested to restin bedside chair. Mr. Vega remains limited by pain, decreased endurance, decreased activity tolerance impacting his ability to complete self cares and functional mobility independently. He would benefit from ongoing OT to maximize independence in self cares. Plan OT Plan Comments: Next Session: LB dressing(AE needed); standing grooming; toileting process. Progress mobility Functional Goals: OT Goal #1: The patient will demonstrate the ability to complete toileting including clothing management, janiya-cares and transfer with supervision/set up assistance to [...] safety OT Goal #4 Status: Ongoing Progress: Slow progress, limited activity tolerance Rehab potential: Mr. Vega has good potential to achieve established occupational therapy goals within the time frame outlined below. OT Frequency: OT Amount: 1 visit per day OT Frequency: 5 times per week OT Inpatient Duration : Until goals are met or hospital discharge Requires Inpatient OT Follow-Up: Yes OT - Next Inpatient Appointment: 08/22/23 Plan: Continue with current plan Treatment interventions may include: Treatment Interventions: Therapeutic exercise, Therapeutic functional activity, Self-care/home management, Cognitive skills training Occupational Therapy Attestation Statement: Patient agrees with the plan of care and goals. Billing: Time Spent with Patient Therapeutic Interventions Therapeutic Activity (min): 17 min Time Tracking Total Timed Units (min): 17 min Total Treatment Time (min): 17 min Lisa Seaman O.T., JODY * Breanna Harris D.T.R. - 08/19/2023 12:00 PM CDT Clinical Nutrition: Initial Assessment RECOMMENDATIONS REQUIRING MD/PROVIDER ORDER No changes at this time; continue current nutrition orders For questions about patient's nutritional care please contact pager [phone] on weekdays or [phone] on weekends/holidays. NUTRITION ASSESSMENT: Mr. Vega is a 83 y.o. male who was admitted for S/P open bladder repair, right ureteral stent exchange . Completed visit with patient today as part of face to face care. Requested to see patient for evaluation of: assessment of nutritional status. Current Diet Order: No diet orders on file Current Nutrition (since admission): Pt is NPO, diet is to advance to a regular diet. Nutrition history: Typically, Mr. Vega has a good appetite. He has maintained his current weight. Nutrition education/counselin09/17/16: Pt attended a cardiac nutrition class. (Outside facility) Topics included types of fats, strategies for increasing fiber, reducing sodium, weight loss goals, and portion sizes. Food Allergies: NFKA Chewing/Swallowing Issues: Denies Nutrition related medical/surgical history: CAD S/P stents, JUNITO-P ANTHROPOMETRICS: Height: 180 cm Admission Weight: 91.2 kg (08/13/2023) Current Weight: 94.8 kg BMI (Calculated): 29.3 kg/m?? Weight change since admission: 3.6 kg Weight Change History: 04/05/23=94.3 (via care everywhere) ESTIMATED NEEDS: Total Calorie Needs: 4112-6238 calories/day Method to Estimate Energy Needs: kcal/kg (20-25 ) Weight Used for Equation Calculations: 91.2 kg Total Protein Needs: 113 grams/day Method to Estimate Protein Needs (g/kg): 1.5 gm/kg Weight Used to Calculate Protein Needs (Kg): 75 kg Nutrition Diagnosis: Altered GI function related to emesis after a meal as evidenced by pt report/NPO Nutrition Intervention: Provide counseling strategies to apply nutrition knowledge Monitoring/Evaluation: Nutrition parameter to monitor: Meals/Supplement Intake, Diet Progression/NPO Status, Weight Status * Deanne Mike L.G.S.W., M.S.W. - 08/19/2023 11:23 AM CDT SUBJECTIVE Social Work attempted to meet with patient in his hospital room to discuss discharge needs, specifically home health care. Patient was receiving care from nursing and therapy. OBJECTIVE Patient is anticipated to remain hospitalized throughout the weekend. Service has indicated he may be ready for discharge early next week. ASSESSMENT / PLAN ASSESSMENT Patient may desire home health care and may be ready for discharge on 08/22/23. Care Management should meet with patient early on 08/22/23 to initiate arrangements if desired. PLAN Social Work will attempt to meet with patient at a later time. Shorty Sun, M.S.W. 08/20/23 * Scott Pina PCarlos, D.P.T. - 08/19/2023 11:07 AM CDT Physical Therapy Inpatient Treatment SUBJECTIVE Patient's Name: Kalen Vega Referring/Attending Provider: Boubacar Brock M.D. Reason for Referral: Physical Therapy Evaluate and Treat History of Present Illness: Kalen Vega is a 83 y.o. male who was admitted to [facility] in [place] on 08/13/2023 for Hematuria [R31.9] Precautions Other Precautions: Abdominal, fall precautions, monitor tachycardia and hypertension Pain Assessment: Patient did not rate pain numerically but stated that it was tolerable and not a barrier to participation in therapy. Patient/Caregiver Goals: Return to prior level of function Subjective Comments: Patient agreed to session. OBJECTIVE Vital Signs Pre-Activity: Pulse Rate: 97 bpm Blood Pressure: 154/87 (104) mmHg O2: 95% Room air Post Activity: Pulse Rate: 102 bpm Blood Pressure: 135/83 (96) mmHg O2: 96% Room air Outcome Measures: AM-PAC Inpatient Short Form: AM-PAC Basic Mobility (V.2) How much help from [...] Climbing 3-5 steps with a railing?: A Little -[facility] Basic Mobility (V.2) Raw Score: 18 -[facility] Basic Mobility (V.2) Standardized Score: 41.05 Interpretation: Based on scoring guidelines using the raw score value: Those going to home had an average score at or above 18 Those going to facility had an average score at or below 17 Clinicians answer the -[facility] Inpatient Short Form based on observed patient activity and/or clinical judgement (ie. patient can be scored without physically performing each activity) Therapeutic Interventions: SIT TO STAND: Assistance Level: Contact Guard Assistance of 1 Device: gait belt and front wheeled walker Surface: Chair Assistance/Cueing: verbal for Upper extremity placement Delivery: educated, instructed, assessed, and facilitated STAND TO SIT: Assistance Level: Contact Guard Assistance of 1 Device: gait belt and front wheeled walker Surface: Chair Assistance/Cueing: verbal for Eccentric control Delivery: educated, instructed, assessed, and facilitated GAIT: Distance: 58 meters Assistance Level:Contact Guard Assistance of 1 Device: gait belt and front wheeled walker Quality: decreased gait speed, downward gaze, forward flexed posture Assistance/Cueing:verbal for Forward gaze and Upright posture Delivery: assessed and facilitated Comments: Distance/tolerance limited due to weakness and fatigue. Self-selected one brief seated rest break due to dizziness/weakness. Rated level of perceived exertion 7-8/10 using modified Maximo scale. The patient's status was discussed and the following coordination of care occurred with the RN, OT,Primary Service, and Care Management Family/Caregiver Present: Kar Alfaro Patient was left in bedside chair at end of session with call light in reach, all needs met and questions answered. Assessment Discharge Therapy Needs - PT: Ongoing skilled physical therapy Skilled therapy can include physical therapy provided by home health, outpatient clinic, or a post-acute facility. The location of these services is determined by the patient's care team in partnership with patient/family. Level of Care Needed - PT: Assistance with bed mobility, Assistance with transfers, Assistance withwalking and moving around the home, Assistance with stairs Equipment Recommended - PT: Front-wheeled walker Barriers to Discharge Home: Current functional status Clinical Impression: Patient's activity tolerance remains limited due to weakness and fatigue. He also endorsed some dizziness with ambulation today with a 19-point decrease in systolic blood pressure noted following activity. Encouraged patient to continue working on short bouts of ambulation with staff over the weekend and PT will plan to follow up again next week to continue with plan of care. Rehab potential: Mr. Vega has Good potential to achieve established physical therapy goals within the time frame outlined below. Progress: Slow progress, limited activity tolerance Plan PT Plan Comments: Progress independence with bed mobility with less reliance on hospital bed features. Progress transfers and ambulation distance/tolerance/quality as able. Initiate stair training when appropriate. Functional Goals: PT Inpatient Goals PT Goal #1: Patient will perform bed mobility independently and without use of bed features to promote return to functional baseline. PT Goal #1 Status: Ongoing PT Goal #2: Patient will perform [id number]-zc-[id number] transfer with modified independence and least restrictive gait aid promote functional independence upon discharge. PT Goal #2 Status: Slowly progressing PT Goal #3: Patient will ambulate 20 m with modified independence and least restrictive gait aid topromote independent mobility within the home. PT Goal #3 Status: Slowly progressing PT Goal #4: Patient will ascend and descend 5 steps with modified independence and use unilateral hand rail to facilitate safe entry and exit from home. PT Goal #4 Status: Ongoing Treatment Plan: Plan: Continue with current plan PT Frequency: 5 times per week PT Inpatient Duration : Until goals are met or hospital discharge Requires Inpatient Follow-Up: Yes PT - Next Inpatient Appointment: 08/22/23 Patient agrees with the plan of care and goals. Treatment interventions may include: Treatment/Interventions: Therapeutic exercise, Neuromuscular re-education, Gait training, Self-care/home management, Therapeutic functional activity Billing: Time Spent with Patient Therapeutic Interventions Therapeutic Activity (min): 22 min Time Tracking Total Timed Units (min): 22 min Total Treatment Time (min): 22 min Scott Pina P.T., D.P.T. * Chance Cassidy, Pharm.D., R.Ph. - 08/19/2023 9:28 AM CDT Images from the original note were not included. Pharmacy Consult -Heparin Infusion with aPTT Management Assessment Nomogram Intensity: Low Indication: Deep Vein Thrombosis (DVT) Recent direct oral Factor Xa inhibitor use: Yes; Apixaban Last dose: on 08/17/23 at 0844 Baseline aPTT(sec): 29 Goal aPTT range: 45 - 60 seconds aPTT Results (Past Day) 08/19/2023 08/18/2023 08/18/2023 4:51 AM 10:03 PM 2:50 PM aPTT 59 63 64 Plan: aPTT is at goal Current dose rate: 11 units/kg/hr Maintain the rate of 11 units/kg/hr Next aPTT level order time (date & time): 08/19/23 at 1100 Pharmacy will manage the heparin infusion based on the Heparin IV Monitoring by aPTT guidance document in [employer]. Marie Cassidy Pharm.D., R.Ph. Addendum at 14:08: aPTT Results (Past Day) 08/19/2023 08/19/2023 08/18/2023 08/18/2023 10:57 AM 4:51 AM 10:03 PM 2:50 PM aPTT 54 59 63 64 The repeat aPTT at 10:57 was 54 which is within therapeutic goal. Continue current rate of 11 unit/kg/h. Will recheck aPTT tomorrow morning. Marie Cassidy, R.Ph., Pharm.D. * Paula Hernandez M.D. - 08/19/2023 6:02 AM CDT UROLOGY CHIEF SERVICE PROGRESS NOTE SUBJECTIVE Kalen Vega was seen by the team during morning rounds. Postop day 4 open bladder repair, right ureteral stent exchange. AVSS. Continues to have intermittent tachycardia Adv to general yesterday evening, had an episode of small vol emesis this AM. Denies currently feeling nauseous. Doesnt feel bloated or distended. Tabares catheter in place draining clear pink urine. Surgical drain to 45 cc serosanguineous drainage. OBJECTIVE Vital signs: AVSS continues to have intermittent tachycardia Physical Exam: General: No acute distress Neuro: Alert and oriented, no gross deficits. Cardiovascular: Regular rate. Pulmonary: Normal respiratory effort. Abdomen: Non-tender, non-distended. Wound VAC in place holding suction : Tabares catheter in place draining clear pink urine I/O ([id number]): 370 p.o. intake 1 L urine output 115cc cc serosanguineous from the drain Labs: No labs today Cultures: Blood and urine cultures from 08/12 growing nunez susceptible E coli Repeat blood culture 08/14 negative On ceftriaxone ASSESSMENT AND PLAN: Mr. Vega is a pleasant 83 y.o. 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 He was taking both Plavix and Xarelto last doses of each 08/11 On 08/11 developed worsening hematuria ultimately went into clot retention and was admitted locallyfor [facility]. He was subsequently transferred to [facility] 08/12 for difficulty irrigating his catheter despite the above. Hand irrigation was performed to clear approximately 400 cc clot to restore catheter drainage. CT cystogram was obtained which identified a bladder dome intraperitoneal perforation, adjacent to the long right distal ureteral stent curl. Tabares catheter is in the bladder lumen without significant residual clot. Status post open cystotomy closure and right ureteral stent exchange on 08/14. #Postop -Tabares catheter light pink urine -incision closed with rayshawn given history of radiation, incisional wound VAC overlying -NG tube was removed 08/17/23 after patient began to pass gas -advanced to general 08/17, had an episode of emesis this morning, we will make him NPO for the morning. 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, home Xarelto (holding since 08/11) --SubQ heparin initiated POD 0 --ppx 2.5 mg BID eliquis initiated 08/15 per vasc med curbside recs --transition from eliquis ppx to heparin drip to allow for titration as needed as patient continuesrecovering from surgery --LE US obtained 5/8 PM due to patient's sustained tachycardia in the 1-2d prior, did show R DVT, unclear if acute or chronic --vascular medicine engaged re new finding DVT to assist with heparin drip dosing, we will continueheparin drip while inpatient, they are recommending switching to Xarelto discharge which we will do # E coli bacteremia -nunez susceptible, currently on ceftriaxone -repeat blood cultures 08/14- # antiplatelet therapy -CAD status post cardiac stents (Plavix held since 08/11) -discussed with cardiology need for plavix, in review of his record they do recommend resuming plavis when it is safe to do so -we will have him follow up with 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 local brand marketing manager Comorbidities: --history of DVT status post IVC filter, home Xarelto (holding since 08/11) -CAD status post cardiac stents (Plavix held since 08/11) -hydronephrosis and atrophic right kidney managed with indwelling double-J stent (exchange at time of surgery 08/14) PLAN: NPO, may go back to regular later this afternoon if he is feeling better Remove wound VAC today Hospital Summary: Diet: Back to NPO for now Activity: Ad kong DVT PPX: heparin drip GI PPX: Pantoprazole Bowel Regimen:N/A IVF: none Abx/Microbiology: Ceftriaxone Pain Control: Tylenol, oxycodone 08/18. Scheduled trospium Home Meds Resumed: Metoprolol, tamsulosin, rosuvastatin Held Home Meds: None Consults: None Paula Hernandez M.D. 08/19/2023 Please page the Urology Chief Service with questions or concerns. Pager during business hours: [phone] Pager after hours: [phone] * Lisa Seaman, O.T., [facility] - 08/18/2023 11:15 AM CDT Occupational Therapy Acute Hospital Inpatient Treatment SUBJECTIVE Patient's Name: Kalen Vega Referring/Attending Provider: Boubacar Brock M.D. Reason for Referral: Occupational Therapy Evaluation and Treatment History of Present Illness: Kalen Vega is a 83 y.o. male who was admitted to [facility] in [place] on 08/13/2023 for Hematuria [R31.9]. Precautions Other Precautions: Abdominal, fall precautions, monitor tachycardia and hypertension Pain Assessment: Pain not reported during session. Subjective Comments: Patient greeted in chair and agreeable to therapy session. Team Communication: The patient's status was discussed and coordination of care occurred with RN OBJECTIVE Vital Signs: Vitals taken during session: Pulse rate: 109-123 bpm Blood pressure: 168/97 - nurse notified Outcome Measures: [facility] Inpatient Short Form: Putting on and taking off regular lower body clothing?: A Little Putting on and taking off regular upper body clothing?: A Little Taking care of personal grooming such as brushing teeth?: None Bathing (including washing, rinsing, drying)?: A lot Toileting, which includes using toilet, bedpan, or urinal?: A Little Eating meals?: A Little Daily Activities Raw Score (max 24): 18 Daily Activities Standardized Score: 38.66 Interpretation: Based on scoring guidelines using the raw score value: Those going to home had an average score at or above 18 Those going to facility had an average score at or below 17 Clinicians answer the [facility] Inpatient Short Form based on observed patient activity and/or clinical judgement (ie. patient can be scored without physically performing each activity) Cognition: Will further assess and monitor as warranted - Cognitive Assessment Method: Therapist observations - Orientation: Oriented x4 - Arousal/Alertness: Appropriate responses to stimuli - Following Commands: Follows all commands without difficulty Therapeutic Interventions: ACTIVITIES OF DAILY LIVING: GROOMING - Assist Level: Supervision/Set-up - Patient Location: Chair - Activity: Brushing teeth - regular or soft brush, Washing face - Therapist Delivery: assessed, instructed, educated, assisted - Assist/Cues: manual for set up and emesis basin - Patient completed task seated as he reported feeling quite fatigued. Following orally hygiene thepatient had an episode of emesis. OT assisted with placement of basin and contacted nurse. Patient reported no symptoms of nausea prior. UPPER BODY DRESSING - Assist Level: Minimal Assist - Patient Location: Chair - UB Dressing Item: hospital gown - Therapist Delivery: assessed, instructed, educated, assisted - Assist/Cues: verbal and manual for technique, assistance for thoroughness - OT provided assistance secondary to placing gown over IV line. LOWER BODY DRESSING - Assist Level: Moderate Assist - Patient Location: Chair - LB Dressing Item: pants - Therapist Delivery: assessed, instructed, educated, assisted - Assist/Cues: verbal, visual, and manual for technique, assistance for thoroughness - Therapist provided visual demonstration of catheter management with LB dressing. Patient requiredassistance to thread bilateral lower extremities into pants secondary to decreased ROM in BLE. FUNCTIONAL TRANSFERS: SIT<>STAND - Assist Level: Contact Guard Assist - Equipment: front wheeled walker and gait belt - Surface: Chair - Therapist Delivery: assessed, instructed, educated - Assist/Cues: verbal for proper hand placement - # of reps: 3 Education/Training Provided: LB Dressing: - Patient instructed on dressing compensatory strategies and aids to assist with don/doff process. Emphasized don/doff strategies including donning clothing over surgical extremity/impaired extremityfirst and doffing over it last. Recommended adaptive equipment: Blender Laborer and Sock Aid. Patient was left in bedside chair, with nursing/STITCH WELDER at end of session with call light in reach, allneeds met and questions answered. Assessment Discharge Therapy Needs - OT: Ongoing skilled occupational therapy Skilled therapy can include occupational therapy provided in home health, outpatient or post-acute facility. The location of these services is determined by patient's care team in partnership with patient/family. Level of Care Needed - OT: Assistance with toileting, Assistance with toilet/shower transfers, Assistance with meal preparation, Assistance with dressing, Assistance with showering/bathing, Assistance with transportation, Assistance with housekeeping, Assistance with shopping Clinical Impression: The patient reported he had an episode of tachycardia this AM following a walk in the hallway and as a result was fatigued. He was agreeable to dressing session today. He requires assistance for threading bilateral lower extremities into pants due to decreased strength and ROM. OT facilitated oral hygiene and standing at sink activity and patient politely declined due to fatigue. OT modified and patient completed seated in bedside chair. Following oral hygiene the patient had an episode of emesis. Nurse was immediately notified and OT session was ended. The patient remains below baseline functioning and would benefit from continued skilled OT to maximize independence with self cares. Plan OT Plan Comments: Next Session: LB dressing(AE needed); standing grooming; toileting process. Progress mobility Functional Goals: OT Goal #1: The patient will demonstrate the ability to complete toileting including clothing management, janiya-cares and transfer with supervision/set up assistance to [...] Follow-Up: Yes OT - Next Inpatient Appointment: 08/19/23 Plan: Continue with current plan Treatment interventions may include: Treatment Interventions: Therapeutic exercise, Therapeutic functional activity, Self-care/home management, Cognitive skills training Occupational Therapy Attestation Statement: Patient agrees with the plan of care and goals. Billing: Time Spent with Patient Therapeutic Interventions Home Management Training (min): 26 min Time Tracking Total Timed Units (min): 26 min Total Treatment Time (min): 26 min Lisa Seaman O.T., MOT * Scott Pina P.T., D.P.T. - 08/18/2023 8:18 AM CDT Physical Therapy Inpatient Treatment SUBJECTIVE Patient's Name: Kalen Vega Referring/Attending Provider: Boubacar Brock M.D. Reason for Referral: Physical Therapy Evaluate and Treat History of Present Illness: Kalen Vega is a 83 y.o. male who was admitted to [facility] in [place] on 08/13/2023 for Hematuria [R31.9] Precautions Other Precautions: Abdominal, fall precautions, monitor tachycardia and hypertension Pain Assessment: Patient reported having no pain. Patient/Caregiver Goals: Return to prior level of function Subjective Comments: Patient agreed to session. OBJECTIVE Vital Signs Pre-Activity: Pulse Rate: 106 bpm O2: 98% Room air Post Activity: Pulse Rate: 154 bpm immediately following ambulation, gradually decreasing to 130s with seated rest Blood Pressure: 186/103 (125) mmHg; 169/107 (122) mmHg on re-check O2: 99% Room air *Nursing was immediately notified of vital signs following activity. RN came to patient's room to assess and communicated vital signs with primary service. Outcome Measures: [facility] Inpatient Short Form: -[facility] Basic Mobility (V.2) How much help [...] Climbing 3-5 steps with a railing?: A Little -[facility] Basic Mobility (V.2) Raw Score: 18 -[facility] Basic Mobility (V.2) Standardized Score: 41.05 Interpretation: Based on scoring guidelines using the raw score value: Those going to home had an average score at or above 18 Those going to facility had an average score at or below 17 Clinicians answer the -[facility] Inpatient Short Form based on observed patient activity and/or clinical judgement (ie. patient can be scored without physically performing each activity) Therapeutic Interventions: SUPINE TO SIT: Assistance Level: Minimal Assistance of 1 Device: head of bed elevated and bedrail Assistance/Cueing: verbal for Adherence to activity precautions, Logrolling, Sequencing, and Technique Delivery: educated, instructed, assessed, facilitated, modified, and assisted SIT TO STAND: Assistance Level: Supervision of 1 Device: gait belt and front wheeled walker Surface: Bed Assistance/Cueing: no cueing required Delivery: assessed STAND TO SIT: Assistance Level: Supervision of 1 Device: gait belt and front wheeled walker Surface: Chair Assistance/Cueing: no cueing required Delivery: assessed GAIT: Distance: 61 meters Assistance Level:Contact Guard Assistance of 1 Device: gait belt and front wheeled walker Quality: decreased gait speed, downward gaze, forward flexed posture Assistance/Cueing:verbal and tactile for Forward gaze and Upright posture Delivery: educated, instructed, and facilitated Comments: Progressed distance relative to previous session but overall remains limited due to fatigue. Endorsed feeling short of breath but denied any dizziness, light headedness, or chest pain despite significant tachycardia and hypertension noted following ambulation. Rated level of perceived exertion 9/10 using modified Maximo scale. The patient's status was discussed and the following coordination of care occurred with the facility maintenance mechanic/Caregiver Present: No Patient was left in bedside chair at end of session with call light in reach, all needs met and questions answered. Assessment Discharge Therapy Needs - PT: Ongoing skilled physical therapy Skilled therapy can include physical therapy provided by home health, outpatient clinic, or a post-acute facility. The location of these services is determined by the patient's care team in partnership with patient/family. Level of Care Needed - PT: Assistance with bed mobility, Assistance with transfers, Assistance withwalking and moving around the home, Assistance with stairs Equipment Recommended - PT: Front-wheeled walker Barriers to Discharge Home: Current functional status Clinical Impression: Patient was able to increase his ambulation distance in the hallway this morning although was tachycardic to the 150s, hypertensive, and endorsing high levels of fatigue afterward. Nursing was notified, came to patient's room for further assessment and communicated with primary service. Recommendedthat patient shorten the distance of his walks throughout the day given his fatigue levels and vital sign response to activity today. PT will continue to follow. Rehab potential: Mr. Vega has Good potential to achieve established physical therapy goals within the time frame outlined below. Progress: Progressing toward goals Plan PT Plan Comments: Progress independence with bed mobility with less reliance on hospital bed features. Progress transfers and ambulation distance/tolerance/quality as able. Initiate stair training when appropriate. Functional Goals: PT Inpatient Goals PT Goal #1: Patient will perform bed mobility independently and without use of bed features to promote return to functional baseline. PT Goal #1 Status: Progressing PT Goal #2: Patient will perform [id number] transfer with modified independence and least restrictive [...] from home. PT Goal #4 Status: Ongoing Treatment Plan: Plan: Continue with current plan PT Frequency: 5 times per week Requires Inpatient Follow-Up: Yes PT - Next Inpatient Appointment: 08/19/23 Patient agrees with the plan of care and goals. Treatment interventions may include: Treatment/Interventions: Therapeutic exercise, Neuromuscular re-education, Gait training, Self-care/home management, Therapeutic functional activity Billing: Time Spent with Patient Therapeutic Interventions Therapeutic Activity (min): 21 min Time Tracking Total Timed Units (min): 21 min Total Treatment Time (min): 21 min Scott Pina P.T., D.P.T. * Aziza Cortez, PharmJonahDJonah, R.Ph. 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 aPTT 61 this morning. GI-no bowel regimen, takes none at home, not currently receiving opioids ASSESSMENT / PLAN Heparin infusion reduced to 13 units/kg/hr, recheck aPTT in 6 hours per protocol. Vasc med consulted Cards recs resume clopidogrel when able Med profile reviewed. Aziza Cortez PharmJonahD., R.Ph. Afternoon aPTT = 64, reduced rate to 12 units/kg/hr and recheck aPTT at 2200 per protocol. * Paula Hernandez M.D. - 08/18/2023 6:16 AM CDT UROLOGY CHIEF SERVICE PROGRESS NOTE SUBJECTIVE Kalen Vega was seen by the team during morning rounds. Postop day 3 open bladder repair, right ureteral stent exchange. AVSS. Tachycardia overall improved from previous. NG tube was removed on 08/16 after patient began to pass gas. He was advanced to limited clears 1 L/24 hours. He had 1 L clears after NG tube was removed and tolerated this without nausea or vomiting. He continues to pass gas. Tabares catheter in place draining clear pink urine. Surgical drain to 45 cc serosanguineous drainage. OBJECTIVE Vital signs: AVSS Physical Exam: General: No acute distress Neuro: Alert and oriented, no gross deficits. Cardiovascular: Regular rate. Pulmonary: Normal respiratory effort. Abdomen: Non-tender, non-distended. Wound VAC in place holding suction : Tabares catheter in place draining clear pink urine I/O ([id number]): 1.2 L p.o. intake 1 L urine output To 45 cc serosanguineous from the drain Labs: No labs today Cultures: Blood and urine cultures from 08/12 growing nunez susceptible E coli Repeat blood culture 08/14 negative On ceftriaxone ASSESSMENT AND PLAN: Mr. Vega is a pleasant 83 y.o. 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 He has was taking both Plavix and Xarelto last doses of each / On 08/11 developed worsening hematuria ultimately went into clot retention and was admitted locallyfor CBI. He was subsequently transferred to [facility] 08/12 for difficulty irrigating his catheter despite the above. Hand irrigation was performed to clear approximately 400 cc clot to restore catheter drainage. CT cystogram was obtained which identified a bladder dome intraperitoneal perforation, adjacent to the long right distal ureteral stent curl. Tabares catheter is in the bladder lumen without significant residual clot. Status post open cystotomy closure and right ureteral stent exchange on 08/14. 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, home Xarelto (holding since 08/11) --SubQ heparin initiated POD 0 --ppx 2.5 mg BID eliquis initiated 08/15 per [facility] recs --transition from eliquis ppx to heparin drip to allow for titration as needed as patient continuesrecovering from surgery --LE US obtained 08/16 PM due to patient's sustained tachycardia in the 1-2d prior, did show R DVT, unclear if acute or chronic --vascular medicine engaged re new finding DVT to assist with heparin drip dosing - specific question is whether they would recommend increasing intensity given DVT identified on US # E coli bacteremia -nunez susceptible, currently on ceftriaxone -repeat blood cultures 08/14- # antiplatelet therapy -CAD status post cardiac stents (Plavix held since 08/11) -discussed with cardiology need for plavix, in review of his record they do recommend resuming plavis when it is safe to do so Comorbidities: --history of DVT status post IVC filter, home Xarelto (holding since 08/11) -CAD status post cardiac stents (Plavix held since 08/11) -hydronephrosis and atrophic right kidney managed with indwelling double-J stent (exchange at time of surgery 08/14) PLAN: may adv to reg diet later today follow up vascular medicine [facility] Summary: Diet: currently limited clears Activity: Ad kong DVT PPX: heparin drip GI PPX: Pantoprazole Bowel Regimen:N/A IVF: none Abx/Microbiology: Ceftriaxone Pain Control: Tylenol, oxycodone 08/18. Scheduled trospium Home Meds Resumed: Metoprolol, tamsulosin, rosuvastatin Held Home Meds: None Consults: None Paula Hernandez M.D. 08/18/2023 6:02 AM CDT Please page the Urology Chief Service with questions or concerns. Pager during business hours: [phone] Pager after hours: [phone] * Tayler Greenwood M.D., M.Ed. - 08/17/2023 [...] recent open bladder surgery. Tayler Greenwood MD, [facility] * Alia Ruelas Pharm.D., R.Ph., BCPS - [...] bleeding after re-initiation we will reengage them. Kennedyo recommended the patient follow up with his primary brand marketing manager at discharge we will which we will make sure he does. we appreciate their time in reviewing this case. * Chance Cassidy, PharmPerla., R.Ph. - 08/17/2023 11:37 AM CDT Images from the original note were not included. Admission Medication History Note Adherence issues: Unable to assess Medication list source: Pharmacy or dispense records Medication related information: Med hx completed by Irvin Franco, PharmPerla., R.Ph. at 08/14/2023 10:22 AM Per LDM from 02/18/23 to present No refill hx for Enzalutamide Have had rivaroxaban 10 mg daily filled regularly, last refill 06/27/23 for 90 days supply. Unclear why rivaroxaban is not in the current med list. Marie Cassidy, R.Ph., Pharm.D. Prior to Admission Medications Med List Status: Pharmacy Complete Set By: Irvin Franco PharmPerla., R.Ph. at 08/14/2023 10:22 AM Taking? Last [...] secondary to radiation proctitis requires frequent transfusions. [facility]ed to floor 08/15/23 PMH: Metastatic prostate cancer, [...] home enzalutamide today (own supply). Marie Cassidy, PharmPerla., R.Ph. INPATIENT MED LIST: acetaminophen, 650 mg, [...] Ringer's Lactated Ringer's * Lisa Seaman, O.T., [facility] - 08/17/2023 10:47 AM CDT Occupational Therapy Acute Hospital Inpatient Treatment SUBJECTIVE Patient's Name: Kalen Vega Referring/Attending Provider: Boubacar Brock M.D. Reason for Referral: Occupational Therapy Evaluation and Treatment History of Present Illness: Kalen Vega is a 83 y.o. male who was admitted to [facility] in [place] on 08/13/2023 for Hematuria [R31.9]. Precautions Other Precautions: abdominal; fall risk; watch HR Pain Assessment: Pain not reported during session. Subjective Comments: Patient greeted in bed and agreeable to therapy session. Team Communication: The patient's status was discussed and coordination of care occurred with RN OBJECTIVE Vital Signs: Vitals taken during session: Pulse rate: 102-128 bpm Outcome Measures: [facility] Inpatient Short Form: Putting on and [...] at or below 17 Clinicians answer the [facility] Inpatient Short Form based on observed [...] ability to complete toileting including clothing management, janyia-cares and transfer with supervision/set up assistance to [...] AVSS. Intermittent tachycardia yesterday, no symptoms. EKG 5/ evening with sinus tachycardia. NG tube in place to suction, 400 cc out over last 24 hours. Patient is NPO. Not yet passing gas. Pain under adequate control on p.o. medicines. Denies suprapubic pain. Tabares catheter in place draining clear pink urine. Eliquis 2.5 mg b.i.d. was started yesterday, urine has remained clear Incisional wound VAC holding suction. OBJECTIVE Vital signs: AV Physical Exam: General: No acute distress Neuro: Alert and oriented, no gross deficits. Cardiovascular: Regular rate. Pulmonary: Normal respiratory effort. Abdomen: Non-tender, non-distended. Wound VAC in place holding suction : Tabares catheter in place draining clear pink urine I/O ([id number]): NG tube 200 cc Two hundred sixty-five [...] Plavix and Xarelto last doses of each 08/11 On 08/11 developed worsening hematuria ultimately went into clot retention and was admitted locallyfor CBI. He was subsequently transferred to [facility] 08/12 for difficulty irrigating his catheter despite the above. Hand irrigation was performed to clear approximately 400 cc clot to restore catheter drainage. CT cystogram was obtained which identified a bladder dome intraperitoneal perforation, adjacent to the long right distal ureteral stent curl. Tabares catheter is in the bladder lumen without significant residual clot. Status post open cystotomy closure and right ureteral stent exchange on 08/14. #Postop -Tabares catheter clear yellow urine -incision closed with [...] questions or concerns. Pager during business hours: [phone] Pager after hours: [phone] * Audi De Luna P.T., D.P.T. - 08/16/2023 3:05 PM CDT 08/16/23 1505 Reason Therapy Missed Reason Therapy Missed Receiving [...] adequate control on p.o. medicines. Deniessuprapubic pain. Tabares catheter in place draining clear pink urine, CBI on slow drip all night. Incisional wound VAC holding suction. OBJECTIVE Vital signs: AVSS Physical Exam: General: No acute distress Neuro: Alert and oriented, no gross deficits. Cardiovascular: Regular rate. Pulmonary: Normal respiratory effort. Abdomen: Non-tender, non-distended. Wound VAC in place holding suction : Tabares catheter in place draining clear pink urine I/O ([id number]): NG tube 200 cc Two hundred sixty-five [...] Plavix and Xarelto last doses of each 08/11 On 08/11 developed worsening hematuria ultimately went into clot retention and was admitted locallyfor CBI. He was subsequently transferred to [facility] 08/12 for difficulty irrigating his catheter despite the above. Hand irrigation was performed to clear approximately 400 cc clot to restore catheter drainage. CT cystogram was obtained which identified a bladder dome intraperitoneal perforation, adjacent to the long right distal ureteral stent curl. Tabares catheter is in the bladder lumen without significant residual clot. Status post open cystotomy closure and right ureteral stent exchange on 08/14. #Postop -Tabares catheter with light pink urine on slow [...] questions or concerns. Pager during business hours: [phone] Pager after hours: [phone] * Paula Hernandez M.D. - 08/15/2023 9:09 AM CDT PROGRESS NOTE: No events. AFVSS. Pain controlled. No flatus. No further emesis overnight. Abdomen more distended than yesterday but remained soft, tender to deep palpation only, no rebound. Twenty-four Gibraltarian Alcock three-way catheter remains off CBI, draining [...] for CBI. He was subsequently transferred to [facility] 08/12 for difficulty irrigating his catheter despite the above. Hand irrigation was performed to clear approximately 400 cc clot to restore catheter drainage. CT cystogram was obtained which identified a bladder dome intraperitoneal perforation, adjacent to the long right distal ureteral stent curl. Tabares catheter is in the bladder lumen without significant residual clot. My team met with patient, his son and daughter in-law at bedside to review the above. At that time he was hemodynamically stable, abdominal exam reassuring, Tabares catheter draining. Decision was made to observe [...] risks associated with surgery and anesthesia including WA, stroke, and VTE were also discussed. Finally, I expalined that there arerare complications that were not specifically mentioned but that are possible as a consequence of this procedure. The patient expressed understanding and wishes to proceed. PLAN: - OR today for exploratory laparotomy, closure of cystotomy, exchange of right- sided ureteral stent. Site marking wrist band applied. Consent obtained - continue Tabares to gravity -we will update family after the case The above was discussed with Dr. Brock, urology lifestyle consultant on-call who is in agreement with [...] Family to bring his home enzalutamide from [place] Irvin Franco PharmPerla., R.Ph. * Jakob De Paz M.D. - 08/14/2023 11:34 AM CDT PROGRESS NOTE: No events. AFVSS. Pain controlled. No flatus. Nauseous and had 2 episodes of emesis. Abdomen more distended than yesterday but remained soft, tender to deep palpation only, no rebound. Twenty-four Gibraltarian Alcock three-way catheter remains off CBI, draining [...] for CBI. He was subsequently transferred to [facility] 08/12 for difficulty irrigating his catheter despite the above. Hand irrigation was performed to clear approximately 400 cc clot to restore catheter drainage. CT cystogram was obtained which identified a bladder dome intraperitoneal perforation, adjacent to the long right distal ureteral stent curl. Tabares catheter is in the bladder lumen without significant residual clot. My team met with patient, his son and daughter in-law at bedside to review the above. At that time he was hemodynamically stable, abdominal exam reassuring, Tabares catheter draining. Decision was made to observe [...] the setting of acute illness) - continue Tabares to gravity. No CBI. Page service promptly if stopped draining - Diet: Clears, NPO if additional nausea vomiting. NPO midnight - PPX: SCDs, ambulation - Tentative plan for OR 5/6 for formal bladder closure, right ureteral stent exchange The above was discussed with Dr. Brock, urology lifestyle consultant on-call who is in agreement with [...] bacteremia Urology on consult, appreciate recs 3-way Tabares in,STOP CBI per urology Conservative mgmt (serial [...] 7 ACCESS: PIV x2 Date 08/13/23 3-way Tabares DISPO Code Status: Full Transfer to floor Family updated on 08/13/[address] Sylvester. Page CCM3 [id number] Carlos Alberto Henson M.D. PGY-1 CCM 3 [...] who have asked we place a 24 Gibraltarian 3-way urinary catheter pending evaluation. We will [...] Metastatic prostate cancer #6 CAD s/p PCI 2016 on plavix #7 History of DVT 2019 on Xarelto #8 Hydronephrosis s/p stent Briefly, Mr. Kalen Vega is a 83 y.o. male with past medical history remarkable for metastaticprostate cancer, prior DVT on anticoagulation with xarelto, CAD s/p PCI on plavix, radiation proctitis with recurrent rectal bleeding, hydronephrosis s/p stent and hematuria who is transferred from [facility] ED with 3 days of hematuria [...] him to present to local hospital in [place]. OSH Course: His hemoglobin was in the high aids when he arrived, he was given a unit of blood. Tabares catheter was placed with difficulty, irrigation was [...] Insecurity: No Food Insecurity (02/16/2022) Received from [facility] [address] [facility] [employer] [facility] Food Insecurity Worried About Running Out of Food in the Last Year: 1 Transportation Needs: No Transportation Needs (02/16/2022) [facility] [employer] [facility] Transportation Needs Lack of Transportation (Medical): 1 Housing Stability: Low Risk (02/16/2022) Received from [facility] [address] [facility] [employer] [facility] Housing Stability Unable to Pay for [...] Will discuss with urology regarding plan. 3-way tabares in and pt on CBI. If rectal [...] support currently RENAL/: Obtain UA, Ucx 3-way Tabares in, CBI, urology consult Urgent CT cystogram [...] 7 ACCESS: PIV x2 Date 08/13/23 3-way Tabares DISPO Code Status: Full ICU level of cares. Family updated on 08/13/[address] Sylvester and Dr. Rodriguez. Page CCM3 [id number] Carlos Alberto Henson M.D. PGY-1 CCM 3 documented in this encounter Procedure Notes * Joni Cerna M.D. - 08/22/2023 8:36 AM CDT PATIENT DISPOSITION Return to inpatient bed. POST-PROCEDURE DIAGNOSIS Need for central venous access PROCEDURE PERFORMED AND DESCRIPTION Placement of a right IJ vein tunneled SL 4-F PowerPICC - ready to use PROCEDURE DETAILS See Radiology Report SPECIMENS REMOVED None FINDINGS As expected PRIMARY PROCEDURALIST FAY Cerna MD [phone] ASSISTANTS none COMPLICATIONS None. DRAINS None. IMPLANTS None. ANESTHESIA Local Anesthesia. FLUIDS none ESTIMATED BLOOD LOSS <5ml CURRENT MEDICATIONS No Medication Changes FOLLOW-UP LETTER None. MAY RETURN TO WORK Not applicable PATIENT INSTRUCTIONS No return appointment * Miko Shah RNarendra - 08/20/2023 8:40 PM CDTAssociated Order(s): Place peripherally inserted central catheter (PICC) Images from the original note were not included. Place peripherally inserted central catheter (PICC) Performed by: Miko Shah RRitesh. Authorized by: Lizette Harvey M.D. Care team members present 1. Miko Shah R.N. 2. Geneva Cortez R.N. PROCEDURE DETAILS Select line: PICC Line type: temporary (non-tunneled, non-implanted) Adult or Vinh/Peds: adult # of lumens: other Optimal site selected: no CONSENT Consent obtained: written (Risks, benefits and alternatives were discussed and a written Informed Consent was obtained. Please see Informed Consent form for further details.) PRE-PROCEDURE DETAILS Appropriate hand hygiene, gown, cap, mask, protective eyewear, sterile gloves, skin preparation, sterile drape, and strict aseptic technique were utilized as applicable for the procedure.: yes No Viable veins noted: Comorbidities/medications/IV history/infiltrations during this stay that were contributing factors:poor vasculature, edema, extravasation Extremities assessed (right/left, upper/lower arm): RUE/LUE Vein score: 5 Grade 1/Excellent: Palpable & visible veins, >10 optimal peripheral vein targets Grade 2/Good: Palpable & visible veins, 5-10 optimal peripheral vein targets Grade 3/Fair: Limited palpable or visible veins, 1-5 optimal vein targets. Consider use of assistive devices. Grade 4/Poor: Veins not palpated or visible, 1-5 optimal vein targets. Devices or ultrasound assistrequired. Grade 5/None identifiable: Veins not palpated or visible by eye or with assistive devices. No optimal peripheral vein targets. Ultrasound used for assessment: [employer] Provider contacted (include name): Uro Surg Time contacted: 2019 Recommendation: Referral to IR for placement of chest PICC line documented in this encounter Consult Notes * Jennifer Millard M.D. - 08/22/2023 10:39 AM CDT SUBJECTIVE Consults REASON FOR CONSULT Evaluation for parenteral nutrition HISTORY OF PRESENT ILLNESS 83 y.o. male with significant for metastatic prostate cancer, recurrent rectal bleeding, radiation proctitis, radiation cystitis, nephrosis and right atrophic kidney, who has been admitted in the setting of recurrent rectal bleeding, urinary obstructive symptoms, and hematuria after presenting to emergency department with symptoms of complete obstruction.He was noted to have bladder dome intraperitoneal perforation on imaging and underwent open cystotomy closure and right ureteral stent exchange on the 14 of August. Nutrition History: Wt Readings from Last 6 Encounters: 08/19/23 90.2 kg 04/23/20 82.2 kg 04/16/20 85.2 kg 04/14/20 84.4 kg 04/09/20 86 kg 04/07/20 86 kg Body mass index is 27.84 kg/m??. PAST MEDICAL HISTORY History reviewed. No pertinent past medical history. PAST SURGICAL HISTORY Past Surgical History: Procedure Laterality Date APPLICATION WOUND VAC ABDOMEN N/A 08/15/2023 Procedure: APPLICATION WOUND VACUUM ABDOMEN INCISIONAL; Surgeon: Boubacar Brock M.D.; Location: [facility] CYSTOSCOPY FLEXIBLE N/A 08/15/2023 Procedure: CYSTOSCOPY FLEXIBLE; Surgeon: Boubacar Brock M.D.; Location: [facility] EXPLORATORY LAPAROTOMY N/A 08/15/2023 Procedure: Palliative EXPLORATORY LAPAROTOMY, CYSTOTOMY CLOSURE, RIGHT URETERAL STENT EXCHANGE; Surgeon: Boubacar Brock M.D.; Location: [facility] OR FAMILY HISTORY No family history on file. SOCIAL HISTORY Social History Socioeconomic History Marital status: Spouse name: Not on file Number of children: Not on file Years of education: Not on file Highest education level: Not on file Occupational History Not on file Tobacco Use Smoking status: Never Smokeless tobacco: Never Substance and Sexual Activity Alcohol use: Not on file Drug use: Not on file Sexual activity: Not on file Other Topics Concern Not on file Social History Narrative Not on file Social Determinants of Health Food Insecurity: No Food Insecurity (08/13/2023) Hunger Vital Sign Worried About Running Out of Food in the Last Year: Never true Ran Out of Food in the Last Year: Never true Transportation Needs: No Transportation Needs (08/13/2023) PRAPARE - Transportation Lack of Transportation (Medical): No Lack of Transportation (Non-Medical): No Intimate Partner Violence: Not At Risk (08/13/2023) Humiliation, Afraid, Rape, and Kick questionnaire Fear of Current or Ex-Partner: No Emotionally Abused: No Physically Abused: No Sexually Abused: No Housing Stability: Low Risk (08/13/2023) Housing Stability Housing: Living Situation: I have a steady place to live REVIEW OF SYSTEMS Pertinent review of systems mentioned in the HPI. OBJECTIVE VITAL SIGNS Temperature: 37 ??C Heart Rate: 94 Resp Rate: 18 Blood Pressure: 139/72 SpO2: 96 % Intake/Output Summary (Last 24 hours) at 08/22/2023 1039 Last data filed at 08/22/2023 0941 Gross per 24 hour Intake 2934 ml Output 65 ml Net 2869 ml PHYSICAL EXAM General: Alert Abdomen: Slight distension DIAGNOSTICS Labs: Results from last 7 days Lab Units 08/22/23 0240 08/21/23 0732 SODIUM mmol/L 136 139 CHLORIDE mmol/L 97* 98 CREATININE mg/dL 1.37* 1.32 ESTIMATED GFR EGFR mL/min/BSA 51* 53* BUN mg/dL 17 24 GLUCOSE S mg/dL 122 89 CALCIUM mg/dL 7.2* 7.6* MAGNESIUM mg/dL -- 2.3 PHOSPHORUS INORGANIC mg/dL -- 2.6 ALBUMIN g/dL 2.6* -- BILIRUBIN TOTAL mg/dL 0.4 -- ALK PHOS U/L 100 -- ALT U/L 14 -- AST U/L 25 -- Radiology: @[id number]@ Swallow Assessment: No data to display ASSESSMENT / PLAN #1 Hematuria ASSESSMENT Currently we are asked to visit with Mr. Vega for consideration of parenteral nutrition. Nutrition Needs: Height: 180 cm Admission Weight: 91.2 kg (08/13/2023) Current Weight: 90.2 kg BMI (Calculated): 27.8 kg/m?? Total Calorie Needs: 8857-0634 calories/day Method to Estimate Energy Needs: Garcia-Williams ( ) Weight Used for Equation Calculations: 91.2 kg Total Protein Needs: 113 - 113 grams/day Method to Estimate Protein Needs (g/kg): 1.5 gm/kg Weight Used to Calculate Protein Needs (Kg): 75 kg Malnutrition Screen: Current IV Access: Peripheral IV 08/13/23 Anterior;Lower;Right Forearm (Active) Placement Date: 08/13/23 Placed by External Staff?: Other hospital Orientation: Anterior;Lower;Right Location: Forearm Peripheral IV 08/15/23 16 G Left Hand (Active) Placement Date/Time: 08/15/23 0855 Size (Gauge): 16 G Orientation: Left Location: Hand 83 y.o. male with metastatic prostate cancer, recurrent rectal bleeding, radiation proctitis, radiation cystitis, nephrosis and right atrophic kidney, who has been admitted in the setting of recurrent rectal bleeding, urinary obstructive symptoms, and hematuria after presenting to emergency department with symptoms of complete obstruction and attempted Tabares insertion. He was noted to have bladder dome intraperitoneal perforation on imaging and underwent open cystotomy closure and right ureteral stent exchange on the 14 of August. He has not met nutritional needs through oral intake for greater than 7 days. Recommended parenteral nutrition formula: --Volume: 1 L per day --Amino Acids: 90 g per day (1 grams/kilogram per day) --Dextrose: 150 g per day --Lipids: 50 g per day --Electrolytes: standard --Micronutrients: standard except thiamine 100 mg daily for the next 3 days Plan/Recommendations: PICC line placed today Once PICC line is in place, can start above parenteral nutrition regimen with max chloride Please check BMP, magnesium, phosphorus, triglyceride level tomorrow morning Thiamine 100 mg daily times three days PN, Will increase calories as tolerated based on electrolytes Please call NSS pager at [phone] at [facility] or [phone] at [facility] with any additional questions. * Gilbert Johnson M.D. - 08/20/2023 8:05 AM CDTAssociated Order(s): Nutrition support service consult ([facility]) SUBJECTIVE Nutrition support service consult ([facility]) Referring Provider: Lizette Harvey M.D. REASON FOR CONSULT Evaluation for parenteral nutrition HISTORY OF PRESENT ILLNESS Mr. Vega is a 83 y.o. male who has medical history significant for metastatic prostate cancer, recurrent rectal bleeding, radiation proctitis, radiation cystitis, nephrosis and right atrophic kidney, who has been admitted in the setting of recurrent rectal bleeding, urinary obstructive symptoms, and hematuria after presenting to emergency department with symptoms of complete obstruction and attempted Tabares insertion. He was noted to have bladder dome intraperitoneal perforation on imaging and underwent open cystotomy closure and right ureteral stent exchange on the 14 of August. Nutrition History: Wt Readings from Last 6 Encounters: 05/10/24 90.2 kg 04/23/20 82.2 kg 04/16/20 85.2 kg 04/14/20 84.4 kg 04/09/20 86 kg 04/07/20 86 kg Body mass index is 27.84 kg/m??. PAST MEDICAL HISTORY History reviewed. No pertinent past medical history. PAST SURGICAL HISTORY Past Surgical History: Procedure Laterality Date APPLICATION WOUND VAC ABDOMEN N/A 08/15/2023 Procedure: APPLICATION WOUND VACUUM ABDOMEN INCISIONAL; Surgeon: Boubacar Brock M.D.; Location: [facility] CYSTOSCOPY FLEXIBLE N/A 08/15/2023 Procedure: CYSTOSCOPY FLEXIBLE; Surgeon: Boubacar Brock M.D.; Location: [facility] EXPLORATORY LAPAROTOMY N/A 08/15/2023 Procedure: Palliative EXPLORATORY LAPAROTOMY, CYSTOTOMY CLOSURE, RIGHT URETERAL STENT EXCHANGE; Surgeon: Boubacar Brock M.D.; Location: [facility] OR FAMILY HISTORY No family history on file. SOCIAL HISTORY Social History Socioeconomic History Marital status: Spouse name: Not on file Number of children: Not on file Years of education: Not on file Highest education level: Not on file Occupational History Not on file Tobacco Use Smoking status: Never Smokeless tobacco: Never Substance and Sexual Activity Alcohol use: Not on file Drug use: Not on file Sexual activity: Not on file Other Topics Concern Not on file Social History Narrative Not on file Social Determinants of Health Food Insecurity: No Food Insecurity (08/13/2023) Hunger Vital Sign Worried About Running Out of Food in the Last Year: Never true Ran Out of Food in the Last Year: Never true Transportation Needs: No Transportation Needs (08/13/2023) PRAPARE - Transportation Lack of Transportation (Medical): No Lack of Transportation (Non-Medical): No Intimate Partner Violence: Not At Risk (08/13/2023) Humiliation, Afraid, Rape, and Kick questionnaire Fear of Current or Ex-Partner: No Emotionally Abused: No Physically Abused: No Sexually Abused: No Housing Stability: Low Risk (08/13/2023) Housing Stability Housing: Living Situation: I have a steady place to live REVIEW OF SYSTEMS Pertinent review of systems mentioned in the HPI. OBJECTIVE VITAL SIGNS Temperature: 36.9 ??C Resp Rate: 15 Blood Pressure: 137/76 SpO2: 95 % Weight: 90.2 kg BMI (Calculated): 27.8 kg/m?? Intake/Output Summary (Last 24 hours) at 08/20/2023 0805 Last data filed at 08/20/2023 0600 Gross per 24 hour Intake 1050.8 ml Output 818 ml Net 232.8 ml PHYSICAL EXAM Constitutional General: He is not in acute distress. Abdominal General: There is distension. Comments: Central adiposity versus distention Musculoskeletal Right lower leg: No edema. Left lower leg: No edema. DIAGNOSTICS Labs: Results from last 7 days Lab Units 08/20/23 03108/14/23 0318 08/13/23 1727 SODIUM P mmol/L -- -- 137 SODIUM mmol/L 137 < > -- NABS SODIUM -- < > -- CHLORIDE P mmol/L -- -- 104 CHLORIDE mmol/L 96* < > -- CREATININE mg/dL 1.33 < > 2.31* ESTIMATED GFR EGFR mL/min/BSA 53* < > 27* BUN P mg/dL -- -- 30* BUN mg/dL 27* < > -- GLUCOSE -- < > -- GLUCOSE P mg/dL -- -- 153* GLUCOSE S mg/dL 115 < > -- CALCIUM P mg/dL -- -- 8.9 CALCIUM mg/dL 8.1* < > -- MAGNESIUM mg/dL -- -- 1.9 ALBUMIN g/dL -- -- 3.3* BILIRUBIN TOTAL mg/dL -- -- 0.8 ALK PHOS U/L -- -- 43 ALT U/L -- -- 13 AST U/L -- -- 21 < > = values in this interval not displayed. Radiology: @[id number]@ Swallow Assessment: No data to display ASSESSMENT / PLAN #1 Hematuria ASSESSMENT Currently we are asked to visit with Mr. Vega for consideration of parenteral nutrition. Nutrition Needs: Height: 180 cm Admission Weight: 91.2 kg (08/13/2023) Current Weight: 90.2 kg BMI (Calculated): 27.8 kg/m?? Total Calorie Needs: 4746-4584 calories/day Method to Estimate Energy Needs: kcal/kg ( ) Weight Used for Equation Calculations: 91.2 kg Total Protein Needs: 113 - 113 grams/day Method to Estimate Protein Needs (g/kg): 1.5 gm/kg Weight Used to Calculate Protein Needs (Kg): 75 kg Malnutrition Screen: Current IV Access: Peripheral IV 08/13/23 Anterior;Lower;Right Forearm (Active) Placement Date: 08/13/23 Placed by External Staff?: Other hospital Orientation: Anterior;Lower;Right Location: Forearm Peripheral IV 08/15/23 16 G Left Hand (Active) Placement Date/Time: 08/15/23 0855 Size (Gauge): 16 G Orientation: Left Location: Hand In summary, Mr. Vega is a 83 y.o. male who has medical history significant for metastatic prostate cancer, recurrent rectal bleeding, radiation proctitis, radiation cystitis, nephrosis and right atrophic kidney, who has been admitted in the setting of recurrent rectal bleeding, urinary obstructive symptoms, and hematuria after presenting to emergency department with symptoms of complete obstruction and attempted Tabares insertion. He was noted to have bladder dome intraperitoneal perforation on imaging and underwent open cystotomy closure and right ureteral stent exchange on the 14 of August. Unfortunately he has not been able to tolerate oral intake and has not met nutritional needs through oral intake for greater than 7 days. Recommended parenteral nutrition formula: --Volume: 1 L per day --Amino Acids: 90 g per day (1 grams/kilogram per day) --Dextrose: 150 g per day --Lipids: 50 g per day --Electrolytes: standard --Micronutrients: standard except thiamine 100 mg daily for the next 3 days Plan/Recommendations: PICC line placement has been ordered. Once PICC line is in place, can start above parenteral nutrition regimen Please check BMP, magnesium, phosphorus, triglyceride level tomorrow morning Will plan to gradually increase calories as tolerated based on electrolytes Please call NSS pager at [phone] at [facility] or [phone] at [facility] with any additional questions. BILLING/CODING Total visit 45 minutes. * Colt Richards M.B., B.Ch. - 08/18/2023 10:31 AM CDTAssociated Order(s): IP CONSULT TO VASCULAR MEDICINE Images from the original note were not included. SUBJECTIVE REASON FOR CONSULT Large DVT on LE US; IVC filter in place, on low intensity heparin drip, recent open bladder repair.Assessment for anticoagulation management? CHIEF COMPLAINT / REASON FOR CONSULT Vascular Medicine is consulted by Urology for recommendations regarding antiplatelet and anticoagulation management for this patient with a history of radiation proctitis, cystitis in the setting of metastatic prostate cancer status post repair of bladder rupture HISTORY OF PRESENT ILLNESS Mr. Vega is a 83 y.o. male admitted on 08/13/2023 for Hematuria [R31.9]. Vascular Medicine is consulted for recommendations regarding continued anti- platelet and anticoagulation in this patient with history of radiation induced hemorrhagic cystitis and proctitis. He is status post open bladder surgery for cystotomy closure and right ureteral stent 08/15/2023 He has a complex history not only metastatic prostate cancer, recurrent rectal bleeding, radiation proctitis requiring transfusion, hydronephrosis in right atrophic kidney underwent open bladder repair for a tear, right ureteral stent exchange . Currently on heparin infusion with therapeutic APTT of 61, hemoglobin stable 8.8 with platelet count 214 K, creatinine 1.3 I reviewed the patient has past history notable for the following 1. History of DVT. The patient had a right ilac DVT apparently associated with malignancy February 2020. He was treated with Xarelto. 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 Initial DVT was related to right lower pelvic adenopathy was described as nonocclusive thrombus right common external right internal iliac veins with the associated malignancy right sacrum and DVT related to compressive mass effect. At the time he underwent IVC filter Review of CTA from August 13, [address]23 shows IVC filter in place Current duplex ultrasound of the left leg indicates incomplete recanalized thrombus extending from right external iliac to popliteal vein-therefore ultrasound is unsure whether this is chronic or acute on chronic. 2 coronary artery disease the patient is status post left main stent along with other stents and apparently brand marketing manager in the past I recommended indefinite dual anti-platelet therapy. Reviewing his past history it appears he has 6 coronary stents 2017 TODAY I INTERVIEWED AND EXAMINED THE PATIENT DISCUSSED FINDINGS He does have chronic right leg swelling. He was used a compressive stocking at home but we do not have that here. I asked the nurses to please Felice wrap the right leg to the knee level to control edema He tells me he has had a least 30 blood transfusions continued bleeding due to radiation proctitis and cystitis He has had no recurrent angina. He does continue to have intermittent bleeding while on both anti-platelet agents and anticoagulant We confirmed that he knows that the IVC filter is in place and we see that on the CT scan above. REVIEW OF SYSTEMS 14 systems reviewed. Pertinent positives and pertinent negatives are documented in the history of present illness. @[facility]@ OBJECTIVE Current Facility-Administered Medications: acetaminophen tablet 650 mg (TYLENOL), 650 mg, oral, Q6H, Paula Hernandez M.D., 650 mg at 08/18/23 1006 cefTRIAXone in dextrose (iso osm) IVPB 2 g (ROCEPHIN), 2 g, intravenous, Q24H, Paula Hernandez M.D., Last Rate: 200 mL/hr at 08/17/232022, 2 g at 08/17/232022 enzalutamide capsule 120 mg (XTANDI) PATIENT'S OWN MED, 120 mg, oral, Daily, Corin Ring M.D., 120 mg at 08/18/23 0814 heparin (porcine) 100 Units/mL in NaCl 0.45% 250 mL infusion, 13 Units/kg/hr (Dosing Weight), intravenous, Continuous, Aziza Cortez Pharm.D., R.Ph., Last Rate: 11.9 mL/hr at 08/18/23 0806, 13Units/kg/hr at 08/18/23 0806 Lactated Ringer's, 20 mL/hr, intravenous, Continuous, Frieda Garner APRN, SPEARER, Last Rate: 20 mL/hr at 08/15/23 1459, 20 mL/hr at 08/15/23 1459 lidocaine 5 % 1 patch (LIDODERM), 1 patch, transdermal, Daily, Carlos Alberto Henson M.D., 1 patch at 08/16/23 0828 metoprolol succinate 24 hr tablet 50 mg (TOPROL-XL), 50 mg, oral, Daily, Carlos Alberto Henson M.D., 50 mg at 08/18/23 0811 naloxone injection 0.2 mg (NARCAN), 0.2 mg, intravenous, PRN, Paula Hernandez M.D. ondansetron (PF) injection 4 mg (ZOFRAN), 4 mg, intravenous, Q6H PRN, Carlos Alberto Henson M.D. oxyCODONE IR tablet 2.5 mg (ROXICODONE), 2.5 mg, oral, Q4H PRN OR oxyCODONE IR tablet 5 mg (ROXICODONE), 5 mg, oral, Q4H PRN, Paula Hernandez M.D. rosuvastatin tablet 40 mg (CRESTOR), 40 mg, oral, Daily, Paula Hernandez M.D., 40 mg at 08/18/23 0812 tamsulosin 24 hr capsule 0.4 mg (FLOMAX), 0.4 mg, oral, Daily, Carlos Alberto Henson M.D., 0.4 mg at 08/18/23 0811 trospium tablet 20 mg (SANCTURA), 20 mg, oral, BID before breakfast and dinner, Paula Hernandez M.D., 20 mg at 08/18/23 0607 Recent Results (from the past 24 hour(s)) APTT (Activated Partial Thromboplastin Time) Collection Time: 08/17/23 4:56 PM Result Value Activated Partial Thrombopl Time, P 29 APTT (Activated Partial Thromboplastin Time) Collection Time: 08/17/23 11:04 PM Result Value Activated Partial Thrombopl Time, P 40 (H) APTT (Activated Partial Thromboplastin Time) Collection Time: 08/18/23 6:42 AM Result Value Activated Partial Thrombopl Time, P 61 (H) VITALS BP 157/86 (BP Location: Right arm;Upper, Patient Position: Sitting) Pulse 101 Temp 36.4 ??C (Oral) Resp 17 Ht 180 cm Wt 94.8 kg SpO2 95% BMI 29.26 kg/m?? PHYSICAL EXAMINATION General: Pleasant elderly ill-appearing gentleman sitting upright in a chair with nasogastric tube.It appears nauseated Heart: S1-S2 no gallop rub or murmur Lungs: Difficult to auscultate but clear Abdomen: Extremities: Right leg significance diffuse swelling with firmness. No swelling of the left leg. The following portions of the patient's history were reviewed and updated as appropriate: allergies, current medications, family history, medical history, social history, surgical history, psychiatric history, substance abuse history, problem list, labs, diagnostics tests. I reviewed the pertinent clinical notes in the electronic health record. DIAGNOSTIC REVIEW All labs and diagnostic studies were reviewed. 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 From a vascular standpoint I would hold Plavix until safe from a bleeding standpoint and then reconsider resuming Plavix as a outpatient. (I personally think we should rethink cardiology decision regarding long-term Plavix but he can discuss this with his brand marketing manager at home. We need to balance transfusion needs for continued bleedingand risk of recurrent WA if not on Plavix-coronary stents were 6 years ago) 2. The patient has a recurrent DVT when off anticoagulation in the setting of metastatic prostate cancer would be at risk of recurrence of DVT if not on anticoagulation. He is currently on IV unfractionated heparin The patient did receive Eliquis on August 15 and August 16 which I confirmed was discontinued- Now on IV heparin Followed by pharmacy who is following APTT 3. When safe from a bleeding standpoint or the time of dismissal we can resume the patient has previous Xarelto but expecting use likely to have further problems with radiation proctitis and bleedingand noting he is protected from PE with an IVC filter I would favor prophylactic Xarelto which is 10 mg daily. 4. Please Felice wrap the right leg to knee level- to control swelling and he can resume the graduate elastic stocking when he gets home. Discussed above with the patient. Vascular Medicine will sign off but call our service if questionsor concerns Izzy Schuster., B.Ch. * Matthieu Reynoso, SPT - 08/17/2023 3:09 [...] 83 y.o. male who was admitted to [facility] in [place] on 08/13/2023 for Hematuria [R31.9]. Relevant Medical History: Kalen Vega is a 83 y.o. 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 Outcome Measures: [facility] Inpatient Short Form: -[facility] Basic Mobility (V.2) How much help [...] 3-5 steps with a railing?: A Lot -[facility] Basic Mobility (V.2) Raw Score: 17 -[facility] Basic Mobility (V.2) Standardized Score: 39.67 Interpretation: Based on scoring guidelines using the raw score value: Those going to home had an average score at or above 18 Those going to facility had an average score at or below 17 Clinicians answer the [facility] Inpatient Short Form based on observed [...] following coordination of care occurred with the facility maintenance mechanic/Caregiver Present: Favio Alfaro Patient was left in bedside chair at [...] 83 y.o. male who was admitted to [facility] in [place] on 08/13/2023 for Hematuria with cystotomy and [...] Min assist for mobility. Required assist for [id number] for force generation and is generally standby [...] family in the area that could provide 24/7 supervision if needed. Stairs and bed mobility [...] Ongoing PT Goal #2: Patient will perform [id number] transfer with modified independence and least restrictive [...] Celestin Associated attestation - Fidencio Caban P.T., D.P.T. - 08/17/2023 5:45 PM CDT This therapist has reviewed all documentation and supervised today???s session. The therapist agrees with the plan developed in collaboration with the patient. * Lisa Seaman, O.Maira., MOT - 08/16/2023 10:01 AM CDT Occupational Therapy Acute Hospital Inpatient Evaluation/Treatment SUBJECTIVE Patient's Name: Kalen Vega Referring/Attending Provider: Boubacar Brock M.D. Reason for Referral: Occupational Therapy Evaluation and Treatment PERTINENT MEDICAL / SURGICAL HISTORY: Kalen Vega has no past medical history on file. Kalen Vega has no past surgical history on file. History of Present Illness: Kalen Vega is a 83 y.o. male who was admitted to [facility] in [place] on 08/13/2023 for Hematuria [R31.9]. Relevant Medical [...] with RN, PT Family/Caregiver Present: Son and [id number]. Home Living and Equipment: Lives with: Spouse/Significant [...] walker, Single point cane Adaptive Equipment Owned: Blender Laborer, Long Handled Shoe Horn Other DME Owned: Regular flat bed Prior Level of Function and Mobility: Basic Activities of Daily Living: Independent Instrumental Activities of Daily Living: Required Assistance: Laundry son assists with laundry and cooking Functional Mobility: Independent Driving: Yes Occupational Role: Retired Leisure Interests: watch movies, plays dominican train, meets friends for breakfast. Patient/Caregiver Goals: [...] Wears glasses all the time Outcome Measures: [facility] Inpatient Short Form: Putting on and [...] at or below 17 Clinicians answer the [facility] Inpatient Short Form based on observed [...] ability to complete toileting including clothing management, janiya-cares and transfer with supervision/set up assistance to [...] Treatment Time (min): 43 min Lisa Seaman O.TJonah, MOT * Sivakumar Parham L.G.S.W., M.S.W. - 08/14/2023 9:59 AM CDTAssociated Order(s): [...] all are a great support. 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 Patient expressed understanding and was agreeable to [...] in conversation with his family when social work specialist entered the room. He was engaged in [...] locally at approximately 3:00 a.m. a 22 Gibraltarian three-way catheter was placed and CBI wasinitiated. Unfortunately he clotted off the catheter multiple times despite manual irrigations, started to develop hypotension and tachycardia [facility] He relays the above history [...] non-distended, non-peritonitic Extremities: No edema : 22 [place]tarian three-way Tabares catheter draining a minimal amount of smith [...] urinary retention Given his non draining 22 [place]tarian three-way catheter the Urology techs and I subsequently exchanged this for a 24 [place]tarian three-way Alcock in the usual sterile fashion. [...] to follow [place] [phone] with questions or concerns Sixto Cain M.D. documented in this encounter Nursing Notes * Lupe Valdez R.N. - 08/26/2023 2:39 PM CDT Shift Goals: Clinical Goals for the Shift: Pt will ambulate 2x during shift Identify possible barriers to meeting goals/advancing plan of care: N/A End of Shift Summary: Patient is stable for discharge. He does not have any pain. He tolerates his diet with no nausea and has adequate oral intake. Vital signs are stable. Chest PICC was removed by radiology. Discharge paperwork was discussed with the patient and all questions were answered. Catheter education was also provided by the urology team. * Latisha Whitehead M.D. - 08/22/2023 2:23 AM CDT Contacted by Susan Burris RN due to concern for GI bleed. Patient is POD 7 abdominal exploration for repair of intraperitoneal bladder rupture. Has NGT in due to concern for bowel obstruction. On low intensity heparin nomogram for DVT prophylaxis. Per report, he had small, mixed consistency bowel movement tonight that was red and brown mixed. HR92, BP 135/65. No changes in how he felt. Concern that skin appeared jaundiced. NG with non-concerning output. Plan - stat cbc, heparin Xa, aptt for nomogram monitoring. CMP. - monitor vitals - started protonix IV for upper GI prophylaxis. * Miko Shah R.N. - 08/20/2023 8:37 PM CDT No Viable veins noted: Comorbidities/medications/IV history/infiltrations during this stay that were contributing factors:poor vasculature, edema, extravasation Extremities assessed (right/left, upper/lower arm): RUE/LUE Vein score: 5 Grade 1/Excellent: Palpable & visible veins, >10 optimal peripheral vein targets Grade 2/Good: Palpable & visible veins, 5-10 optimal peripheral vein targets Grade 3/Fair: Limited palpable or visible veins, 1-5 optimal vein targets. Consider use of assistive devices. Grade 4/Poor: Veins not palpated or visible, 1-5 optimal vein targets. Devices or ultrasound assistrequired. Grade 5/None identifiable: Veins not palpated or visible by eye or with assistive devices. No optimal peripheral vein targets. Ultrasound used for assessment: [employer] Fit Provider contacted (include name): Uro Surg Time contacted: 2019 Recommendation: Referral to IR for placement of chest PICC line * Geneva Cortez R.N. - 08/20/2023 8:37 PM CDT Second PICC nurse assessing patient for bedside PICC placement. Both arms scanned, vessels extremely small with several bifurcations; no veins found suitable to attempt; Bedside RN informed; sx contacted; Interventional Radiology recommended for chest PICC or other central line. * Jose Haro M.S.N., R.N. - 08/14/2023 12:23 PM CDT Patient Transfer Note Patient transferred to: [facility] Room: 101 Accompanied by: JAMEL Garcia Report called? YES [...] of current vital signs? YES * Sixto Teague R.R.T., L.R.TJonah, FROZEN FOOD DEPARTMENT MANAGER-[facility] - 08/14/2023 7:00 AM CDT Patient is [...] in the last 24hours. Sixto Teague R.R.T., L.R.TJonah, FROZEN FOOD DEPARTMENT MANAGER-[facility] 08/14/23 7:00 AM CDT Electronically signed by Sixto Teague R.R.T., SiddharthaRJonahTJonah, FROZEN FOOD DEPARTMENT MANAGER-[facility] at 08/14/2023 7:02 AM CDT * Radha [...] Hematuria Electronically signed by: Radha Crespo R.R.T., L.R.T. 08/13/23 7:10 PM CDT documented in this encounter OR Notes * Op Note - Jakob De Paz M.D. - 08/15/2023 9:37 AM CDT Pre-op Diagnosis Rupture Bladder Spontaneous Post-op Diagnosis Rupture Bladder Spontaneous Channel Supervisor A nurse first assist actively participated and was necessary for one [...] with stable, cover with wound VAC - Tabares catheter exchange, 24Fr 3 way with 15cc [...] the supine flexed position. His existing 24 Gibraltarian three-way Tabares catheter was noted to be draining dark [...] additional tissue for additional coverage. A 24 Gib[place]tarian three-way catheter was placed with 15 cc in the balloon. This irrigated to light clear pink. A 15 Gibraltarian YARELI drain wasplaced into the pelvis exiting left lower quadrant. The fascia was closed with interrupted and [id number] 0 PDS. Fat was approximated using 3-0 chromic. Skin was closed with rayshawn, covered with wound VAC. Fhe Tabares catheter was placed on slow drip CBI [...] stent and hematuria who is transferred from [facility] ED with 3 days of hematuria & [...] RN, CPN, CCDS, CCS, CRC Clinical Documentation [employer] Services Librarian Query created by: ELMER Barker, RN, CPN, HELDERS, CCS, CRC 08/15/2023 06:49 AM CDT </LCI> * Hospital Course - Paula Hernandez M.D. - 08/14/2023 11:34 AM CDT Background [...] he felt completely obstructed and presented to [facility] ED. [facility] Course Attempted Tabares insertion but bladder irrigation was unsuccessful on multiple attempts. Hung 1U pRBC's. Given some volume and transferred to [facility] ICU ICU Course Urology consulted and were able to replace Tabares with Alcock catheter. Successful irrigation. However, because of abdominal pain and hours without successful irrigation, CT cystogram confirmed small bladder perforation. Was started on ceftriaxone. He also spiked positive blood cultures (E. Coli). He was maintained on ceftriaxone. Per accepting service recs, and concern for active urinary bleeding, was transfused 2U pRBC's prior to transfer. Hospital Course The patient remained hemodynamically stable and was transferred to the floor. He was taken to the operating room on 08/15/2023 for right ureteral stent exchange and open bladder repair. Case was uncomplicated. His wound was closed with rayshawn and he had an overlying incisional wound VAC. the wound VAC was removed on postop day 5. The rayshawn were removed on 08/25 prior to discharge. Hospital course complicated by ileus which evolved into small bowel obstruction which then resolved. He had an NG-tube placed, had clinical improvement it was removed. He then developed recurrent symptoms of nausea, vomiting and then NG- tube was replaced. The NG tube was subsequently removed and hehad tolerated regular diet for 3 days prior to hospital discharge. At the time of discharge he was not endorsing nausea, vomiting. He is passing gas. Having solid bowel movements. Course complicated by DVT. This was detected after the patient had intermittent tachycardia in the first few days after his surgery. 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 Vascular Medicine colleagues were involved and recommended heparin drip which was initiated. At the time of discharge the heparin drip was stopped and his Xarelto was started. UROLOGY FOLLOW-UP: -CT cystogram 3 weeks from surgery with voiding trial, periprocedural antibiotics ordered -delayed message sent to our team to contact the patient to set up his next right-sided ureteral stent exchange which is due in November 2023 HOSPITAL FOLLOW UP -patient should see his primary care doctor within a week or two after discharge -patient should see cardiology team regarding plavix as soon as able DVT follow up: -Our vascular medicine team has recommended you wear compression elastic stockings for your blood clot, these can be purchased over the counter documented in this encounter Plan of Treatment Upcoming Encounters Date Type Department Care Team (Late st Contact Info) Description 09/07/2023 11:00 AM CDT Procedure visit Department of Urology in [place], [place] [address] [place] [phone] Sima Venegas M.D. [address] [place] [address] Pending Results Name Type Priority Associated Diagnoses Date /Time Prepare Red Blood Cells, 2 Units Blood Bank Routine 08/13/2023 7:35 PM CDT Prepare Red Blood Cells, 1 Units Blood Bank STAT 08/13/2023 7:35 PM CDT Prepare Red Blood Cells, 1 Units Blood Bank Routine 08/22/2023 2:55 AM CDT Prepare Red Blood Cells, 1 Units Blood Bank Routine 08/26/2023 6:50 AM CDT Prepare Red Blood Cells, 1 Units Blood Bank Routine 08/26/2023 6:50 AM CDT Scheduled Orders Name Type Priority Associated Diagnoses Orde r Schedule URO Urethral cath removal & voiding trial (UCO/VT) Procedure Routine Hematuria [R31.9] Expected: 09/05/2023, Expires: 11/25/2024 documented as of this encounter Procedures Procedure [...] AND SCREEN Routine 08/26/2023 6:50 AM CDT RENAL FUNCTION PANEL, S Routine 08/26/2023 3:20 AM CDT HEPARIN LEVEL ANTI-XA ASSAY, P Routine 08/26/2023 3:20 AM CDT CBC WITHOUT DIFFERENTIAL, B Routine 08/26/2023 3:20 AM CDT MAGNESIUM, S Routine 08/26/2023 3:20 AM CDT RENAL FUNCTION PANEL, S Routine 08/25/2023 3:24 AM CDT HEPARIN LEVEL ANTI-XA ASSAY, P Routine 08/25/2023 3:24 AM CDT CBC WITHOUT DIFFERENTIAL, B Routine 08/25/2023 3:24 AM CDT MAGNESIUM, S Routine 08/25/2023 3:24 AM CDT RENAL FUNCTION PANEL, S Timed 08/24/2023 5:28 AM CDT HEPARIN LEVEL ANTI-XA ASSAY, P Routine 08/24/2023 5:28 AM CDT CBC WITHOUT DIFFERENTIAL, B Routine 08/24/2023 5:28 AM CDT MAGNESIUM, S Timed 08/24/2023 5:28 AM CDT POTASSIUM, S/P Routine 08/23/2023 9:58 PM CDT PHOSPHORUS (INORGANIC), S Routine 08/23/2023 9:58 PM CDT HEPARIN LEVEL ANTI-XA ASSAY, P Timed 08/23/2023 11:37 AM CDT RENAL FUNCTION PANEL, S Routine 08/23/2023 3:42 AM CDT CBC WITHOUT DIFFERENTIAL, B Routine 08/23/2023 3:42 AM CDT TRIGLYCERIDES, S Routine 08/23/2023 3:42 AM CDT MAGNESIUM, S Routine 08/23/2023 3:42 AM CDT HEPARIN LEVEL ANTI-XA ASSAY, P Routine 08/23/2023 3:41 AM CDT GLUCOSE POCT, B Routine 08/22/2023 [...] AND SCREEN Routine 08/22/2023 2:55 AM CDT ACTIVATED PARTIAL THROMBOPLASTIN TIME (APTT), P STAT 08/22/2023 2:40 AM CDT HEPARIN LEVEL ANTI-XA ASSAY, P STAT 08/22/2023 2:40 AM CDT COMPREHENSIVE METABOLIC PANEL, S/P STAT 08/22/2023 2:40 AM CDT ACTIVATED PARTIAL THROMBOPLASTIN TIME (APTT), P Routine 08/21/2023 7:32 AM CDT HEPARIN LEVEL ANTI-XA ASSAY, P Routine 08/21/2023 7:32 AM CDT CBC WITHOUT DIFFERENTIAL, B Routine 08/21/2023 7:32 AM CDT TRIGLYCERIDES, S Routine 08/21/2023 7:32 AM CDT PHOSPHORUS (INORGANIC), S Routine 08/21/2023 7:32 AM CDT MAGNESIUM, S Routine 08/21/2023 7:32 AM CDT BASIC METABOLIC PANEL, S/P Routine 08/21/2023 7:[address] PERIPHERALLY INSERTED CENTRAL CATHETER (PICC) Routine 08/20/2023 8:40 PM CDT DX ABDOMEN PORTABLE ANTERIOR POSTERIOR 1 VIEW RAD - Routine (most inpatients and all outpatients) 08/20/2023 6:[address] ABDOMEN PELVIS WITH IV CONTRAST RAD - Timed (for specific dates/times) 08/20/2023 3:05 PM CDT ACTIVATED PARTIAL THROMBOPLASTIN TIME (APTT), P Routine 08/20/2023 3:19 AM CDT CBC WITHOUT DIFFERENTIAL, B Routine 08/20/2023 3:19 AM CDT BASIC METABOLIC PANEL, S/P Routine 08/20/2023 3:19 AM CDT ACTIVATED PARTIAL [...] MANUAL Timed 08/13/2023 5: 07 PM CDT BACTERIAL CULTURE, AEROBIC + SUSC, URINE Timed 08/13/2023 5:07 PM CDT URINALYSIS WITH MICROSCOPIC Timed 08/13/2023 5:07 PM CDT INTERPRETATION OF OUTSIDE CT ABDOMEN AND OR PELVIS RAD - Routine (most inpatients and all outpatients) 08/13/2023 4:46 PM CDT documented in this encounter Results * Transfuse Red Blood Cells : (08/26/2023 12:52 PM CDT) Corin Ring M.D. BLOOD TRANSFUSION OR DERABLES * Transfuse Red Blood Cells : , 1 Units (08/26/2023 12:52 PM CDT) Corin Ring M.D. BLOOD TRANSFUSION [...] of right tunneled PICC line. NR Paula Hernnadez M.D. IMG IR PROCEDURES * Transfuse Red Blood Cells : (08/26/2023 11:00 AM CDT) Paula Hernandez M.D. BLOOD TRANSFUSION OR DERABLES * Transfuse Red Blood Cells : , 1 Units (08/26/2023 11:00 AM CDT) Paula Hernandez M.D. BLOOD TRANSFUSION OR DERABLES * Type and Screen (with Reflex Antibody ID) (08/26/2023 6:50 AM CDT) Pathologist [facility] ABORh O Pos Not applicable 08/26/2023 7:16 AM CDT STRM Antibody Screen Negative Negative 08/26/2023 7:29 AM CDT STRM Type & Screen Expiration 08/29/2023 23:59 08/26/2023 7:16 AM CDT STRM Testing Location [place] DEFAULT 08/26/2023 6:57 AM CDT STRM Blood (Blood, Venous) 08/26/2023 6:50 AM CDT 08/26/2023 6:57 AM CDT Narrative Authorizing Provider Result Abdifatah Hernandez M.D. LAB BLOOD BANK TEST ORDERABLES [facility] [address] [place] [address], [place] STRM [facility] [address] [place] [address] * (ABNORMAL) CBC without Differential (08/26/2023 3:20 AM CDT) Hemoglobin 7.4(L) 13.2 - 16.6 g/dL 08/26/2023 [...] CDT Corin Ring M.D. LAB BLOOD ADD-ON [facility] 200 [place] [address], [facility] 200 [place] [address] * Magnesium (08/26/2023 3:20 AM CDT) Pathologist [facility] Magnesium, S 2.1 1.7 - 2.3 mg/dL 08/26/2023 4:04 AM CDT DTL Blood (Blood, Venous) 08/26/2023 3:20 AM CDT 08/26/2023 3:50 AM CDT Boubacar Brock M.D. LAB BLOOD ADD-ON [facility] [address] [place] [address], [facility] [address] [place] [address] * (ABNORMAL) Renal Function Panel (08/26/2023 3:20 AM CDT) Potassium, S 4.4 3.6 - 5.2 mmol/L [...] CDT Boubacar Brock M.D. LAB BLOOD ADD-ON [facility] [address] [place] [address], [place] DTL [facility] [address] [place] [address] * Heparin Anti-Xa Assay (08/26/2023 3:20 AM CDT) Pathologist [facility] Heparin Anti-Xa, P 0.26 IU/mL 2023 3:58 [...] Hoyt M.D. LAB BLOOD NON ADD -ON [address] [address], [facility] [address] [address] * (ABNORMAL) CBC without Differential (08/25/2023 3:24 AM CDT) [facility] Hemoglobin 8.3(L) 13.2 - 16.6 g/dL 08/25/2023 4:12 AM CDT DTL Hematocrit 25.7(L) 38.3 - 48.6 % 08/25/2023 4:12 AM CDT DTL Erythrocytes 2.89(L) 4.35 - 5.65 x10(12)/L 08/25/2023 4:12 AM CDT DTL MCV 88.9 78.2 - 97.9 fL 08/25/2023 4:12 AM CDT DTL RBC Distrib Width 17.9(H) 11.8 - 14.5 % 08/25/2023 4:12 AM CDT DTL Platelet Count 266 135 - 317 x10(9)/L 08/25/2023 4:12 AM CDT DTL Leukocytes 9.1 3.4 - 9.6 x10(9)/L 08/25/2023 4:12 AM CDT DTL Blood (Blood, Venous) 08/25/2023 3:24 AM CDT 08/25/2023 4:06 AM CDT Corin Ring M.D. LAB BLOOD ADD-ON [facility] [address] [place] [address], [facility] [address] [place] [address] * (ABNORMAL) Renal Function Panel (08/25/2023 3:24 AM CDT) Pathologist [facility] Potassium, S 4.1 3.6 - 5.2 mmol/L 08/25/2023 4:36 AM CDT DTL Sodium, S 139 135 - 145 mmol/L 08/25/2023 4:36 AM CDT DTL Chloride, S 106 98 - 107 mmol/L 08/25/2023 4:36 AM CDT DTL Bicarbonate, S 24 22 - 29 mmol/L 08/25/2023 4:36 AM CDT DTL Anion Gap 9 7 - 15 08/25/2023 4:36 AM CDT DTL BUN (Blood Urea Nitrogen), S 18 8 - 24 mg/dL 08/25/2023 4:36 AM CDT DTL Creatinine 1.06 0.74 - 1.35 mg/dL 08/25/2023 4:36 AM CDT DTL Estimated GFR (eGFR) 69 >=60 mL/min/BSA 08/25/2023 4:36 AM CDT DTL Comment: Estimated GFR calculated using the 2020 CKD_EPI creatinine equation. Calcium, Total, S 7.6(L) 8.8 - 10.2 mg/dL 08/25/2023 4:36 AM CDT DTL Glucose, S 107 70 - 140 mg/dL 08/25/2023 4:36 AM CDT DTL Albumin, S 2.4(L) 3.5 - 5.0 g/dL 08/25/2023 4:36 AM CDT DTL Phosphorus (Inorganic), S 2.7 2.5 - 4.5 mg/dL 08/25/2023 4:36 AM CDT DTL Blood (Blood, Venous) 08/25/2023 3:24 AM CDT 08/25/2023 4:19 AM CDT Boubacar Brock M.D. LAB BLOOD ADD-ON Performing Organization Address [facility] Co de Phone Number [facility] [address] [place] [address] * Magnesium (08/25/2023 3:24 AM CDT) Magnesium, S 2.2 1.7 - 2.3 mg/dL 08/25/2023 4:36 AM CDT DTL Blood (Blood, Venous) 08/25/2023 3:24 AM CDT 08/25/2023 4:19 AM CDT Boubacar Brock M.D. LAB BLOOD ADD-ON Performing Organization Address [facility] Co de Phone Number [facility] 200 [place] [address], [place] [address] * Heparin Anti-Xa Assay (08/25/2023 3:24 AM CDT) Heparin Anti-Xa, P 0.31 IU/mL 2023 4:09 AM CDT DTL Comment: UFH therapeutic range: [...] or unfractionated heparin (UFH). Blood (Blood, Venous) 08/25/2023 3:24 AM CDT 08/25/2023 3:55 AM CDT Boubacar Brock M.D. LAB BLOOD NON ADD-ON [facility] [address] [place] [address], [facility] DTL [facility] 200 [place] [address] * (ABNORMAL) CBC without Differential (08/24/2023 5:28 AM CDT) [facility] Hemoglobin 8.1(L) 13.2 - 16.6 g/dL 08/24/2023 5:53 AM CDT DTL Hematocrit 25.8(L) 38.3 - 48.6 % 08/24/2023 5:53 AM CDT DTL Erythrocytes 2.93(L) 4.35 - 5.65 x10(12)/L 08/24/2023 5:53 AM CDT DTL MCV 88.1 78.2 - 97.9 fL 08/24/2023 5:53 AM CDT DTL RBC Distrib Width 17.4(H) 11.8 - 14.5 % 08/24/2023 5:53 AM CDT DTL Platelet Count 248 135 - 317 x10(9)/L 08/24/2023 5:53 AM CDT DTL Leukocytes 9.3 3.4 - 9.6 x10(9)/L 08/24/2023 5:53 AM CDT DTL Blood (Blood, Venous) 08/24/2023 5:28 AM CDT 08/24/2023 5:43 AM CDT Corin Ring M.D. LAB BLOOD ADD-ON [facility] [address] [place], [place] [address] [address] [place] [address] * Magnesium (08/24/2023 5:28 AM CDT) Magnesium, S 2.3 1.7 - 2.3 mg/dL 08/24/2023 6:19 AM CDT DTL Blood (Blood, Venous) 08/24/2023 5:28 AM CDT 08/24/2023 6:00 AM CDT Boubacar Brock M.D. LAB BLOOD ADD-ON [facility] 200 [place] [address], [facility] 200 [place] [address] * (ABNORMAL) Renal Function Panel (08/24/2023 5:28 AM CDT) Potassium, S 3.6 3.6 - 5.2 mmol/L 08/24/2023 6:19 AM CDT DTL Sodium, S 140 135 - 145 mmol/L 08/24/2023 6:19 AM CDT DTL Chloride, S 106 98 - 107 mmol/L 08/24/2023 6:19 AM CDT DTL Bicarbonate, S 26 22 - 29 mmol/L 08/24/2023 6:19 AM CDT DTL Anion Gap 8 7 - 15 08/24/2023 6:19 AM CDT DTL BUN (Blood Urea Nitrogen), S 16 8 - 24 mg/dL 08/24/2023 6:19 AM CDT DTL Creatinine 1.14 0.74 - 1.35 mg/dL 08/24/2023 6:19 AM CDT DTL Estimated GFR (eGFR) 63 >=60 mL/min/BSA 08/24/2023 6:19 AM CDT DTL Comment: Estimated GFR calculated using the 2020 CKD_EPI creatinine equation. Calcium, Total, S 7.4(L) 8.8 - 10.2 mg/dL 08/24/2023 6:19 AM CDT DTL Glucose, S 124 70 - 140 mg/dL 08/24/2023 6:19 AM CDT DTL Albumin, S 2.5(L) 3.5 - 5.0 g/dL 08/24/2023 6:19 AM CDT DTL Phosphorus (Inorganic), S 2.3(L) 2.5 - 4.5 mg/dL 08/24/2023 6:19 AM CDT DTL Blood (Blood, Venous) 08/24/2023 5:28 AM CDT 08/24/2023 6:00 AM CDT Boubacar Brock M.D. LAB BLOOD ADD-ON Performing Organization Address [facility] Co de Phone Number [facility] [address] [place], [place] [address] [place] [address] * Heparin Anti-Xa Assay (08/24/2023 5:28 AM CDT) Heparin Anti-Xa, P 0.33 IU/mL 2023 5:58 AM CDT DTL Comment: UFH therapeutic range: [...] or unfractionated heparin (UFH). Blood (Blood, Venous) 08/24/2023 5:28 AM CDT 08/24/2023 5:43 AM CDT Boubacar Brock M.D. LAB BLOOD NON ADD-ON Performing Organization Address City/[facility]/ZIP Co de Phone Number [facility] 200 [place] [address], [facility] [address] [address] * (ABNORMAL) Potassium (08/23/2023 9:58 PM CDT) Pathologist [facility] Potassium, S 3.5(L) 3.6 - 5.2 mmol/L 08/23/2023 10:45 PM CDT DT Blood (Blood, Venous) 08/23/2023 9:58 PM CDT 08/23/2023 10:30 PM CDT Boubacar Brock M.D. LAB BLOOD ADD-ON Performing Organization Address City/[facility]/ZIP Co de Phone Number [facility] 200 [place] [address], [facility] 200 [place] [address] * (ABNORMAL) Phosphorus Inorganic (08/23/2023 9:58 PM CDT) [facility] Phosphorus (Inorganic), S 2.1(L) 2.5 - 4.5 mg/dL 08/23/2023 10:45 PM CDT DT Blood (Blood, Venous) 08/23/2023 9:58 PM CDT 08/23/2023 10:30 PM CDT Paula Hernandez M.D. LAB BLOOD ADD-ON Performing Organization Address City/[facility]/ZIP Co de Phone Number [facility] 200 [place] [address], [facility] 200 [place] [address] * Heparin Anti-Xa Assay (08/23/2023 11:37 AM CDT) [facility] Heparin Anti-Xa, P 0.51 IU/mL 2023 12:42 PM CDT [facility] Comment: UFH therapeutic range: ?? 0.30-0.70 IU/mL LMWH therapeutic range: 0.50-1.00 IU/mL 0.50-1.00 IU/mL for twice daily dosing ?? 1.00-2.00 IU/mL for once daily dosing (sample obtained 4-6 hours following subcutaneous injection) LMWH prophylactic range:0.10-0.30 IU/mL ----ADDITIONAL INFORMATION---- Heparin Anti-Xa is used to measure heparin concentrations in patients receiving low molecular weight heparin (LMWH) or unfractionated heparin (UFH). Blood (Blood, Venous) 08/23/2023 11:37 AM CDT 08/23/2023 12:09 PM CDT Boubacar Brock M.D. LAB BLOOD NON ADD-ON Performing Organization Address [facility]/ZIP Co de Phone Number [facility] [address] [place] [address], [facility] DTL [facility] [address] [place] [address] * (ABNORMAL) CBC without Differential (08/23/2023 3:42 AM CDT) Hemoglobin 8.3(L) 13.2 - 16.6 g/dL 08/23/2023 4:07 AM CDT DTL Hematocrit 25.5(L) 38.3 - 48.6 % 08/23/2023 4:07 AM CDT DTL Erythrocytes 2.93(L) 4.35 - 5.65 x10(12)/L 08/23/2023 4:07 AM CDT DTL MCV 87.0 78.2 - 97.9 fL 08/23/2023 4:07 AM CDT DTL RBC Distrib Width 17.5(H) 11.8 - 14.5 % 08/23/2023 4:07 AM CDT DTL Platelet Count 243 135 - 317 x10(9)/L 08/23/2023 4:07 AM CDT DTL Leukocytes 10.1(H) 3.4 - 9.6 x10(9)/L 08/23/2023 4:07 AM CDT DTL Blood (Blood, Venous) 08/23/2023 3:42 AM CDT 08/23/2023 4:00 AM CDT Corin Ring M.D. LAB BLOOD ADD-ON Performing Organization Address [facility]/ZIP Co de Phone Number [facility] 200 [place], [place] [address] 200 [place] [address] * Triglycerides (08/23/2023 3:42 AM CDT) Pathologist [facility] Triglycerides 106 mg/dL 08/23/2023 4:50 AM CDT DTL Comment: ----REFERENCE VALUE---- Normal: <150 mg/dL Borderline High: 150-199 mg/dL High: 200-499 mg/dL Very High: > or =500 mg/dL Fasting (8 HR or more) Yes 08/23/2023 4:19 AM CDT DTL Blood (Blood, Venous) 08/23/2023 3:42 AM CDT 08/23/2023 4:19 AM CDT Boubacar Brock M.D. LAB BLOOD ADD-ON Performing Organization Address City/[facility]/ZIP Co de Phone Number [facility] [address] [place], [place] [address] [place] [address] 200 [place] [address] * Magnesium (08/23/2023 3:42 AM CDT) Pathologist [facility] Magnesium, S 2.2 1.7 - 2.3 mg/dL 08/23/2023 4:50 AM CDT DTL Blood (Blood, Venous) 08/23/2023 3:42 AM CDT 08/23/2023 4:19 AM CDT Boubacar Brock M.D. LAB BLOOD ADD-ON [facility] 200 [place] [address], [facility] [address] [place] [address] * (ABNORMAL) Renal Function Panel (08/23/2023 3:42 AM CDT) Pathologist [facility] Potassium, S 3.1(L) 3.6 - 5.2 mmol/L 08/23/2023 4:50 AM CDT DTL Sodium, S 138 135 - 145 mmol/L 08/23/2023 4:50 AM CDT DTL Chloride, S 101 98 - 107 mmol/L 08/23/2023 4:50 AM CDT DTL Bicarbonate, S 29 22 - 29 mmol/L 08/23/2023 4:50 AM CDT DTL Anion Gap 8 7 - 15 08/23/2023 4:50 AM CDT DTL BUN (Blood Urea Nitrogen), S 14 8 - 24 mg/dL 08/23/2023 4:50 AM CDT DTL Creatinine 1.27 0.74 - 1.35 mg/dL 08/23/2023 4:50 AM CDT DTL Estimated GFR (eGFR) 56(L) >=60 mL/min/BSA 08/23/2023 4:50 AM CDT DTL Comment: Estimated GFR calculated using the 2020 CKD_EPI creatinine equation. Calcium, Total, S 7.0(L) 8.8 - 10.2 mg/dL 08/23/2023 4:50 AM CDT DTL Glucose, S 128 70 - 140 mg/dL 08/23/2023 4:50 AM CDT DTL Albumin, S 2.3(L) 3.5 - 5.0 g/dL 08/23/2023 4:50 AM CDT DTL Phosphorus (Inorganic), S 1.8(L) 2.5 - 4.5 mg/dL 08/23/2023 4:50 AM CDT DTL Blood (Blood, Venous) 08/23/2023 3:42 AM CDT 08/23/2023 4:19 AM CDT Boubacar Brock M.D. LAB BLOOD ADD-ON [facility] [address] [place] [address], [facility] [address] [place] [address] * Heparin Anti-Xa Assay (08/23/2023 3:41 AM CDT) Heparin Anti-Xa, P 0.51 IU/mL 2023 4:26 AM CDT DTL Comment: UFH therapeutic range: [...] or unfractionated heparin (UFH). Blood (Blood, Venous) 08/23/2023 3:41 AM CDT 08/23/2023 4:00 AM CDT Boubacar Brock M.D. LAB BLOOD NON ADD-ON Performing Organization Address City/[facility]/ZIP Co de Phone Number [facility] [address] [place] [address], [facility] DTL [facility] 200 [place] [address] * Glucose, POCT (08/22/2023 11:38 PM CDT) Glucose, POCT, B 117 70 - 140 mg/dL 08/23/2023 1:06 AM CDT PCLX Site Capillary 08/23/2023 1:06 AM CDT PCLX Last Intake NPO 08/23/2023 1:06 AM CDT PCLX Blood 08/22/2023 11:3 8 PM CDT 08/23/2023 1:06 AM CDT Unknown Provider LAB POCT ORDERABLES- MANUAL Performing Organization Address City/[facility]/ZIP Co de Phone Number POC [facility] [address] [place] [address], [facility] PCLX [facility] [address] [place] [address] * Heparin Anti-Xa Assay (08/22/2023 10:14 PM CDT) Heparin Anti-Xa, P 0.50 IU/mL 2023 10:47 PM CDT DTL Comment: UFH therapeutic range: ?? 0.30-0.70 IU/mL LMWH therapeutic range: 0.50-1.00 IU/mL 0.50-1.00 IU/mL for twice daily dosing ?? 1.00-2.00 IU/mL for once daily dosing (sample obtained 4-6 hours following subcutaneous injection) LMWH prophylactic range:0.10-0.30 IU/mL ----ADDITIONAL INFORMATION---- Heparin Anti-Xa is used to measure heparin concentrations in patients receiving low molecular weight heparin (LMWH) or unfractionated heparin (UFH). Blood (Blood, Venous) 08/22/2023 10:14 PM CDT 08/22/2023 10:34 PM CDT Boubacar Brock M.D. LAB BLOOD NON ADD-ON [facility] [address] [place] [address], [facility] DTL [facility] [address] [place] [address] * CT Abdomen Pelvis without IV Contrast [...] colon likelyrepresenting mild proctocolitis. Paula Hernandez M.D. [facility] CT PROCEDURES * Heparin Anti-Xa Assay (08/22/2023 3:43 PM CDT) Heparin Anti-Xa, P 0.35 IU/mL 2023 4:46 PM CDT DTL Comment: UFH therapeutic range: ?? 0.30-0.70 IU/mL LMWH therapeutic range: 0.50-1.00 IU/mL 0.50-1.00 IU/mL for twice daily dosing ?? 1.00-2.00 IU/mL for once daily dosing (sample obtained 4-6 hours following subcutaneous injection) LMWH prophylactic range:0.10-0.30 IU/mL ----ADDITIONAL INFORMATION---- Heparin Anti-Xa is used to measure heparin concentrations in patients receiving low molecular weight heparin (LMWH) or unfractionated heparin (UFH). Blood (Blood, Venous) 08/22/2023 3:43 PM CDT 08/22/2023 4:03 PM CDT Boubacar Brock M.D. LAB BLOOD NON ADD-ON [place] [address] [place] [address], [facility] [place] [address] * Creatinine, Body Fluid (08/22/2023 3:30 PM CDT) Creatinine, BF 1.2 See Comment mg/dL 08/22/2023 6:56 PM CDT DT Comment: ----ADDITIONAL INFORMATION---- Peritoneal, Pleural, and Drain fluid concentrations should be compared to serum or plasma. Fluid to serum ratios >1.0 suggest the specimen may be contaminated with urine. Peritoneal dialysate fluid to serum creatinine ratios can be calculated from timed collections to determine peritoneal membrane transport rates. All other fluids refer to [email or web address].com for further interpretive information. This test has been modified from the cobol engineer's instructions. Its performance characteristics were determined by [facility] in a manner consistent with CLIA requirements. This test has not been cleared or approved by the U.S. Food and Drug Administration. Fluid Type, Creatinine Fluid, Abdomen 08/22/2023 3:52 PM CDT DTL Fluid (Abdomen) 08/22/2023 3 :30 PM CDT 08/22/2023 6:36 PM CDT Corin Ring M.D. LAB BODY FLUIDS AND STOOLS ORDERABLES [facility] [address] [place] [address], [facility] DTL [facility] [address] [place] [address] * Transfuse Red Blood Cells : (08/22/2023 12:07 PM CDT) Paula Hernandez M.D. BLOOD TRANSFUSION OR DERABLES * Transfuse Red Blood Cells : , 1 Units (08/22/2023 12:07 PM CDT) Paula Hernandez M.D. BLOOD TRANSFUSION OR DERABLES * IR PICC Line Placement (08/22/2023 8:35 AM CDT) Anatomical Region Laterality Modality Chest, Pelvis, Abdomen, Vasc ular Interventional RST LOS, Vascular Interventional ARZ LOS, Vascular Interventional FLA LOS N/A X-Ray Angiography Impressions 08/22/2023 9:05 AM CDT Placement of a right IJ vein single-lumen 4 [place] tunneled PowerPICC ready for immediate use. NR [...] advanced into the IVC and a 4 [place] dilator advanced over the wire and attached to a one-way stopcock. A suitable exit site in the right anterior chest was anesthetized and a small incision made. A 4 [place] single-lumen PowerPICC was then tunneled from the [...] Wireadvanced into the IVC and a 4 [place] dilator advanced over the wire andattached to a one-way stopcock. A suitable exit site in the right anteriorchest was anesthetized and a small incision made. A 4 [place] single-lumen PowerPICC was then tunneled fromthe skin [...] of a right IJ vein single-lumen 4 [place] tunneled PowerPICCready for immediate use. NR Kimi Vieira M.D., M.S. IMG IR P LULU * (ABNORMAL) CBC without Differential (08/22/2023 3:27 AM CDT) Hemoglobin 7.8(L) 13.2 - 16.6 g/dL 08/22/2023 3:37 AM CDT STMA Hematocrit 24.4(L) 38.3 - 48.6 % 08/22/2023 3:37 AM CDT STMA Erythrocytes 2.75(L) 4.35 - 5.65 x10(12)/L 08/22/2023 3:37 AM CDT STMA MCV 88.7 78.2 - 97.9 fL 08/22/2023 3:37 AM CDT STMA RBC Distrib Width 17.5(H) 11.8 - 14.5 % 08/22/2023 3:37 AM CDT STMA Platelet Count 261 135 - 317 x10(9)/L 08/22/2023 3:37 AM CDT STMA Leukocytes 12.1(H) 3.4 - 9.6 x10(9)/L 08/22/2023 3:37 AM CDT STMA Blood 08/22/2023 3:27 AM CDT 08/22/2023 3:34 AM CDT Latisha Whitehead M.D. LAB BLOOD ADD-ON [facility] [address] [place] [address], [facility] STMA [facility] [address] [place] [address] * Type and Screen (with Reflex Antibody ID) (08/22/2023 2:55 AM CDT) ABORh O Pos Not applicable 08/22/2023 3:25 AM CDT STRM Antibody Screen Negative Negative 08/22/2023 3:38 AM CDT STRM Type & Screen Expiration 08/25/2023 23:59 08/22/2023 3:25 AM CDT STRM Testing Location Marcio DEFAULT 08/22/2023 3:07 AM CDT STRM Blood (Blood, Venous) 08/22/2023 2:55 AM CDT 08/22/2023 3:07 AM CDT Latisha Whitehead M.D. LAB BLOOD BANK T EST ORDERABLES Performing Organization Address City/[facility]/ZIP Co de Phone Number [facility] [address] [place] [address], [facility] STRM [facility] [address] [place] [address] * (ABNORMAL) Comprehensive Metabolic Panel (08/22/2023 2:40 AM CDT) Potassium, S 3.2(L) 3.6 - 5.2 mmol/L [...] CDT Latisha Whitehead M.D. LAB BLOOD ADD-ON [facility] [address] [place] [address], [facility] [address] [place] [address] * Heparin Anti-Xa Assay (08/22/2023 2:40 AM CDT) Heparin Anti-Xa, P 0.47 IU/mL 2023 3:28 AM CDT DTL Comment: UFH therapeutic range: [...] or unfractionated heparin (UFH). Blood (Blood, Venous) 08/22/2023 2:40 AM CDT 08/22/2023 3:09 AM CDT Latisha Whitehead M.D. LAB BLOOD NON AD D-ON Performing Organization Address City/[facility]/ZIP Co de Phone Number [facility] [address] [place] [address], [facility] DTL [facility] [address] [place] [address] * (ABNORMAL) APTT (Activated Partial Thromboplastin Time) (08/22/2023 2:40 AM CDT) Activated Partial Thrombopl Time, P 64(H) 25 - 37 sec 08/22/2023 3:12 AM CDT STMA Blood (Blood, Venous) 08/22/2023 2:40 AM CDT 08/22/2023 3:01 AM CDT Latisha Whitehead M.D. LAB BLOOD ADD-ON [facility] [address] STMA [facility] 200 [place] [address] * Triglycerides (08/21/2023 7:32 AM CDT) Triglycerides 98 mg/dL 08/21/2023 9:03 AM CDT DT Comment: ----REFERENCE VALUE---- Normal: <150 mg/dL Borderline High: 150-199 mg/dL High: 200-499 mg/dL Very High: > or =500 mg/dL Fasting (8 HR or more) Unknown 08/21/2023 8:38 AM CDT DTL Blood (Blood, Venous) 08/21/2023 7:32 AM CDT 08/21/2023 8:38 AM CDT Lizette Harvey M.D. LAB BLOOD ADD-O N Performing Organization Address City/[facility]/ZIP Co de Phone Number [facility] [address] [place] [address] * Phosphorus Inorganic (08/21/2023 7:32 AM CDT) Pathologist [facility] Phosphorus (Inorganic), S 2.6 2.5 - 4.5 mg/dL 08/21/2023 9:03 AM CDT DT Blood (Blood, Venous) 08/21/2023 7:32 AM CDT 08/21/2023 8:38 AM CDT Lizette Harvey M.D. LAB BLOOD ADD-O N [facility] [address] [place], [place] [id number] [place] [address] 200 [place] [address] * Magnesium (08/21/2023 7:32 AM CDT) Magnesium, S 2.3 1.7 - 2.3 mg/dL 08/21/2023 9:03 AM CDT DT Blood (Blood, Venous) 08/21/2023 7:32 AM CDT 08/21/2023 8:38 AM CDT Lizette Harvey M.D. LAB BLOOD ADD-O N [facility] [address] [place] [address], [facility] DTL [facility] [address] [place] [address] * (ABNORMAL) Basic Metabolic Panel (08/21/2023 7:32 AM CDT) Potassium, S 3.3(L) 3.6 - 5.2 mmol/L [...] Lizette Harvey M.D. LAB BLOOD ADD-O N [facility] [address] [place] [address], [facility] DTL [facility] [address] [place] [address] * (ABNORMAL) CBC without Differential (08/21/2023 7:32 AM CDT) [facility] Hemoglobin 8.0(L) 13.2 - 16.6 g/dL 08/21/2023 8:17 AM CDT DTL Hematocrit 25.8(L) 38.3 - 48.6 % 08/21/2023 8:17 AM CDT DTL Erythrocytes 2.87(L) 4.35 - 5.65 x10(12)/L 08/21/2023 8:17 AM CDT DTL MCV 89.9 78.2 - 97.9 fL 08/21/2023 8:17 AM CDT DTL RBC Distrib Width 17.3(H) 11.8 - 14.5 % 08/21/2023 8:17 AM CDT DTL Platelet Count 308 135 - 317 x10(9)/L 08/21/2023 8:17 AM CDT DTL Leukocytes 13.4(H) 3.4 - 9.6 x10(9)/L 08/21/2023 8:17 AM CDT DTL Blood (Blood, Venous) 08/21/2023 7:32 AM CDT 08/21/2023 8:07 AM CDT Lizette Harvey M.D. LAB BLOOD ADD-O N [facility] [address] [place] [address], [facility] [address] [place] [address] * Heparin Anti-Xa Assay (08/21/2023 7:32 AM CDT) [facility] Heparin Anti-Xa, P 0.49 IU/mL 2023 8:31 AM CDT DTL Comment: UFH therapeutic range: [...] or unfractionated heparin (UFH). Blood (Blood, Venous) 08/21/2023 7:32 AM CDT 08/21/2023 8:06 AM CDT Boubacar Brock M.D. LAB BLOOD NON ADD-ON [facility] [address] [place] [address] * (ABNORMAL) APTT (Activated Partial Thromboplastin Time) (08/21/2023 7:32 AM CDT) Activated Partial Thrombopl Time, P 49(H) 25 - 37 sec 08/21/2023 8:31 AM CDT DTL Blood (Blood, Venous) 08/21/2023 7:32 AM CDT 08/21/2023 8:06 AM CDT Boubacar Brock M.D. LAB BLOOD ADD-ON [facility] [address] [place] [address] * Place peripherally inserted central catheter (PICC) [...] the atrophic right kidney. Lizette Harvey M.D. [facility] CT PROCEDUR ES * (ABNORMAL) Basic Metabolic Panel (08/20/2023 3:19 AM CDT) [facility] Potassium, S 3.7 3.6 - 5.2 mmol/L 08/20/2023 4:34 AM CDT DTL Sodium, S 137 135 - 145 mmol/L 08/20/2023 4:34 AM CDT DTL Chloride, S 96(L) 98 - 107 mmol/L 08/20/2023 4:34 AM CDT DTL Bicarbonate, S 28 22 - 29 mmol/L 08/20/2023 4:34 AM CDT DTL Anion Gap 13 7 - 15 08/20/2023 4:34 AM CDT DTL BUN (Blood Urea Nitrogen), S 27(H) 8 - 24 mg/dL 08/20/2023 4:34 AM CDT DTL Creatinine 1.33 0.74 - 1.35 mg/dL 08/20/2023 4:34 AM CDT DTL Estimated GFR (eGFR) 53(L) >=60 mL/min/BSA 08/20/2023 4:34 AM CDT DTL Comment: Estimated GFR calculated using the 2020 CKD_EPI creatinine equation. Calcium, Total, S 8.1(L) 8.8 - 10.2 mg/dL 08/20/2023 4:34 AM CDT DTL Glucose, S 115 70 - 140 mg/dL 08/20/2023 4:34 AM CDT DTL Blood (Blood, Venous) 08/20/2023 3:19 AM CDT 08/20/2023 4:19 AM CDT Paula Hernandez M.D. LAB BLOOD ADD-ON Performing Organization Address City/[facility]/ZIP Co de Phone Number [facility] [address] [place] [address], [facility] DTL [facility] [address] [place] [address] * (ABNORMAL) CBC without Differential (08/20/2023 3:19 AM CDT) [facility] Hemoglobin 8.9(L) 13.2 - 16.6 g/dL 08/20/2023 4:21 AM CDT DTL Hematocrit 27.1(L) 38.3 - 48.6 % 08/20/2023 4:21 AM CDT DTL Erythrocytes 3.15(L) 4.35 - 5.65 x10(12)/L 08/20/2023 4:21 AM CDT DTL MCV 86.0 78.2 - 97.9 fL 08/20/2023 4:21 AM CDT DTL RBC Distrib Width 17.2(H) 11.8 - 14.5 % 08/20/2023 4:21 AM CDT DTL Platelet Count 330(H) 135 - 317 x10(9)/L 08/20/2023 4:21 AM CDT DTL Leukocytes 12.2(H) 3.4 - 9.6 x10(9)/L 08/20/2023 4:21 AM CDT DTL Blood (Blood, Venous) 08/20/2023 3:19 AM CDT 08/20/2023 4:10 AM CDT Paula Hernandez M.D. LAB BLOOD ADD-ON Performing Organization Address City/[facility]/ZIP Co de Phone Number [facility] [address] [place] [address], [facility] DTL [facility] [address] [place] [address] * (ABNORMAL) APTT (Activated Partial Thromboplastin Time) (08/20/2023 3:19 AM CDT) [facility] Activated Partial Thrombopl Time, P 52(H) 25 - 37 sec 08/20/2023 4:33 AM CDT DT Blood (Blood, Venous) 08/20/2023 3:19 AM CDT 08/20/2023 4:10 AM CDT Boubacar Brock M.D. LAB BLOOD ADD-ON [facility] [address] [place], [place] [address] [place] [address] * (ABNORMAL) APTT (Activated Partial Thromboplastin Time) (08/19/2023 10:57 AM CDT) [facility] Activated Partial Thrombopl Time, P 54(H) 25 - 37 sec 08/19/2023 11:44 AM CDT DT Blood (Blood, Venous) 08/19/2023 10:57 AM CDT 08/19/2023 11:26 AM CDT Boubacar Brock M.D. LAB BLOOD ADD-ON [facility] [address] [place], [place] [address] [place] [address] * (ABNORMAL) APTT (Activated Partial Thromboplastin Time) (08/19/2023 4:51 AM CDT) [facility] Activated Partial Thrombopl Time, P 59(H) 25 - 37 sec 08/19/2023 5:53 AM CDT DT Blood (Blood, Venous) 08/19/2023 4:51 AM CDT 08/19/2023 5:36 AM CDT Boubacar Brock M.D. LAB BLOOD ADD-ON Performing Organization Address City/[facility]/ZIP Co de Phone Number [facility] [address] [place] [address] * (ABNORMAL) APTT (Activated Partial Thromboplastin Time) (08/18/2023 10:03 PM CDT) Activated Partial Thrombopl Time, P 63(H) 25 - 37 sec 08/18/2023 10:41 PM CDT DTL Blood (Blood, Venous) 08/18/2023 10:03 PM CDT 08/18/2023 10:19 PM CDT Boubacar Brock M.D. LAB BLOOD ADD-ON Performing Organization Address City/[facility]/ZIP Co de Phone Number [facility] [address] [place] [address] * (ABNORMAL) APTT (Activated Partial Thromboplastin Time) (08/18/2023 2:50 PM CDT) Pathologist [facility] Activated Partial Thrombopl Time, P 64(H) 25 - 37 sec 08/18/2023 3:25 PM CDT DTL Blood (Blood, Venous) 08/18/2023 2:50 PM CDT 08/18/2023 3:07 PM CDT Boubacar Brock M.D. LAB BLOOD ADD-ON [facility] [address] [place] [address] * (ABNORMAL) APTT (Activated Partial Thromboplastin Time) (08/18/2023 6:42 AM CDT) Activated Partial Thrombopl Time, P 61(H) 25 - 37 sec 08/18/2023 7:28 AM CDT DTL Blood (Blood, Venous) 08/18/2023 6:42 AM CDT 08/18/2023 7:04 AM CDT Boubacar Brock M.D. LAB BLOOD ADD-ON Performing Organization Address City/[facility]/ZIP Co de Phone Number [facility] [address] [place] [address] * (ABNORMAL) APTT (Activated Partial Thromboplastin Time) (08/17/2023 11:04 PM CDT) Activated Partial Thrombopl Time, P 40(H) 25 - 37 sec 08/17/2023 11:46 PM CDT DT Blood (Blood, Venous) 08/17/2023 11:04 PM CDT 08/17/2023 11:31 PM CDT Boubacar Brock M.D. LAB BLOOD ADD-ON Performing Organization Address [facility] Co de Phone Number [facility] [address] [place], [place] [address] [place] [address] * US Lower Extremity Veins Bilateral (08/17/2023 [...] and management can be found on the [facility] site. Link [email or web address] Findings discussed with ??Tayler Greenwood, ?? ([id number]) on 08/17/2023 7:11 PM. Procedure Note Jj [...] thrombosis and management can be found on theAsk[facility]ander[facility] Universityert site. [email or web address] 1725 Findings discussed with Tayler Greenwood MD ([id number]) on 08/17/2023 7:11 PM. IMPRESSION: 1. 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 2. No acute left-sided DVT. Corin Ring M.D. IMG US PROCEDURES * APTT (Activated Partial Thromboplastin Time) (08/17/2023 4:56 PM CDT) [facility] Activated Partial Thrombopl Time, P 29 25 - 37 sec 08/17/2023 5:10 PM CDT [facility] Blood (Blood, Venous) 08/17/2023 4:56 PM CDT 08/17/2023 5:00 PM CDT Paula Hernandez M.D. LAB BLOOD ADD-ON [facility] [address] [place] [address], [facility] [address] [place] [address] * ECG 12 Lead (08/16/2023 9:43 PM CDT) [facility] Ventricular Rate ECG/Min 134 BPM MUSE MD Interval 136 ms MUSE QRSD Interval 76 ms MUSE QT Interval 298 ms MUSE QTC Interval 445 ms MUSE P [place] 29 degrees MUSE R [place] -6 degrees MUSE T Wave [place] 21 degrees MUSE 08/16/2023 9:43 PM CDT [...] CDT Geneva Azar M.D. LAB BLOOD ADD-ON [facility] [address] [place] [address], [facility] DTL [facility] [address] [place] [address] * (ABNORMAL) Basic Metabolic Panel (08/16/2023 9:40 PM CDT) Pathologist [facility] Potassium, S 3.9 3.6 - 5.2 mmol/L [...] CDT Geneva Azar M.D. LAB BLOOD ADD-ON [facility] [address] [place] [address], [facility] DTL [facility] [address] [place] [address] * Transfuse Red Blood Cells : (08/16/2023 12:04 PM CDT) Corin Ring M.D. BLOOD TRANSFUSION OR DERABLES * Transfuse Red Blood Cells : , 1 Units (08/16/2023 12:04 PM CDT) Corin Ring M.D. BLOOD TRANSFUSION OR DERABLES * (ABNORMAL) Basic Metabolic Panel (08/16/2023 3:10 AM CDT) Pathologist [facility] Potassium, S 4.2 3.6 - 5.2 mmol/L [...] M.D. LAB BLOOD ADD-ON Performing Organization Address City/[facility]/ZIP Co de Phone Number [facility] [address] [place] [address], [facility] [address] [place] [address] * (ABNORMAL) CBC without Differential (08/16/2023 3:10 [...] AM CDT 08/16/2023 3:39 AM CDT Paula eHrnandez M.D. LAB BLOOD ADD-ON [facility] [address] [place] [address], [facility] [address] [place] [address] * (ABNORMAL) CBC with Differential, Blood (08/15/2023 [...] Carlos Alberto Henson M.D. LAB BLOOD ADD-ON [facility] [address] [place] [address], [facility] DTL [facility] [address] [place] [address] [facility] [address] [place] [address] * DX Abdomen 1 View (08/15/2023 1:19 [...] CDT 08/15/2023 12:03 PM CDT Rae Gonzalez INTERNET RETAILER, SPEARER, DNAP LAB BLOO D NON ADD-ON [facility] [address] [place] [address], [facility] [address] [place] [address] * Lactate, B - Intra-op (08/15/2023 11:56 AM CDT) Lactate, B 1.1 0.5 - 2.2 mmol/L 08/15/2023 12:06 PM CDT STMA Blood (Blood, Venous) 08/15/2023 11:56 AM CDT 08/15/2023 12:03 PM CDT Hayde Song M.D. LAB BLOOD NON ADD-O N [facility] [address] [place] [address], [facility] [address] [place] [address] * (ABNORMAL) Glucose, Whole Blood (08/15/2023 11:56 AM CDT) Glucose 144(H) 70 - 140 mg/dL 08/15/2023 12:06 PM CDT STMA Blood (Blood, Arterial Line) 08/15/2023 11:56 AM CDT 08/15/2023 12:03 PM CDT Hayde Song M.D. LAB BLOOD ADD-ON Performing Organization Address City/[facility]/ZIP Co de Phone Number [facility] [address] [place] [address], [facility] [address] [place] [address] * Potassium, Blood (08/15/2023 11:56 AM CDT) Potassium, B 4.3 3.6 - 5.2 mmol/L 08/15/2023 12:07 PM CDT STMA Blood (Blood, Arterial Line) 08/15/2023 11:56 AM CDT 08/15/2023 12:03 PM CDT Hayde Song M.D. LAB BLOOD NON ADD-O N [facility] [address] [place] [address], [facility] [address] [place] [address] * Sodium, B (08/15/2023 11:56 AM CDT) Sodium, B 135 135 - 145 mmol/L 08/15/2023 12:06 PM CDT STMA Blood (Blood, Arterial Line) 08/15/2023 11:56 AM CDT 08/15/2023 12:03 PM CDT Hayde Song M.D. LAB BLOOD NON ADD-O N Performing Organization Address City/[facility]/ZIP Co de Phone Number [facility] [address] [place] [address], [facility] 200 [place] [address] * (ABNORMAL) Calcium, Ionized (08/15/2023 11:56 AM CDT) Calcium, Ionized, B 4.53(L) 4.65 - 5.30 mg/dL 08/15/2023 12:07 PM CDT STMA Blood (Blood, Arterial Line) 08/15/2023 11:56 AM CDT 08/15/2023 12:03 PM CDT Hayde Song M.D. LAB BLOOD NON ADD-O N Performing Organization Address City/[facility]/ZIP Co de Phone Number [facility] [address] [place] [address], [address] [address] * (ABNORMAL) Blood Gas with Coox, Arterial [...] BLOOD NON ADD-O N Performing Organization Address City/[facility]/ZIP Co de Phone Number [facility] [address] STMA [facility] [address] [place] [address] * [place] Fluoro Less Than 1 Hour (08/15/2023 11:22 AM CDT) Narrative 152 [facility] - 08/15/2023 11:24 AM CDT This exam does not require a radiologist review or interpretation. Please refer to the patient's medical record on this date for clinical details. Boubacar Brock M.D. IMG FLUOROSCOPY PROC EDURES Performing Organization Address City/[facility]/ZIP Co de Phone Number 152 [facility] * Patient Status (08/15/2023 10:28 AM CDT) Temperature 36.1 37.0 deg C 08/15/2023 10:28 AM CDT STMA FIO2 0.55 0.21=AIR 08/15/2023 10:28 AM CDT [facility] Blood 08/15/2023 10:2 8 AM CDT 08/15/2023 10:28 AM CDT Rae Gonzalez INTERNET RETAILER, SPEARER, DNAP LAB BLOO D NON ADD-ON Performing Organization Address City/[facility]/ZIP Co de Phone Number [facility] [address] [place], [place] [id number] [place] [address] 200 [place] [address] * Lactate, B - Intra-op (08/15/2023 10:28 AM CDT) Lactate, B 1.1 0.5 - 2.2 mmol/L 08/15/2023 10:30 AM CDT [facility] Blood (Blood, Venous) 08/15/2023 10:28 AM CDT 08/15/2023 10:28 AM CDT Hayde Song M.D. LAB BLOOD NON ADD-O N Performing Organization Address City/[facility]/ZIP Co de Phone Number [facility] [address] [place], [place] [id number] [place] [address] [address] [place] [address] * Glucose, Whole Blood (08/15/2023 10:28 AM CDT) Glucose 134 70 - 140 mg/dL 08/15/2023 10:30 AM CDT [facility] Blood (Blood, Arterial Line) 08/15/2023 10:28 AM CDT 08/15/2023 10:28 AM CDT Hayde Song M.D. LAB BLOOD ADD-ON [facility] [address] [place], [place] [address] [place] [address] [address] [place] [address] * Potassium, Blood (08/15/2023 10:28 AM CDT) Potassium, B 4.1 3.6 - 5.2 mmol/L 08/15/2023 10:31 AM CDT ST[facility] Blood (Blood, Arterial Line) 08/15/2023 10:28 AM CDT 08/15/2023 10:28 AM CDT Hayde Song M.D. LAB BLOOD NON ADD-O N [facility] [address] [place], [place] [id number] [place] [address] [address] [place] [address] * Sodium, B (08/15/2023 10:28 AM CDT) Sodium, B 135 135 - 145 mmol/L 08/15/2023 10:30 AM CDT [facility] Blood (Blood, Arterial Line) 08/15/2023 10:28 AM CDT 08/15/2023 10:28 AM CDT Hayde Song M.D. LAB BLOOD NON ADD-O N Performing Organization Address City/[facility]/ZIP Co de Phone Number [facility] [address] [place], [place] [phone] [place] [address] 200 [place] [address] * (ABNORMAL) Calcium, Ionized (08/15/2023 10:28 AM CDT) [facility] Calcium, Ionized, B 4.25(L) 4.65 - 5.30 mg/dL 08/15/2023 10:31 AM CDT [facility] Blood (Blood, Arterial Line) 08/15/2023 10:28 AM CDT 08/15/2023 10:28 AM CDT Hayde Song M.D. LAB BLOOD NON ADD-O N [facility] [address] [place] [address] * (ABNORMAL) Blood Gas with Coox, Arterial [...] Song M.D. LAB BLOOD NON ADD-O N [facility] [address] [place] [address], [facility] [address] [place] [address] * Bacteria / Yomaira Culture, Blood #2 (08/15/2023 3:33 AM CDT) Pathologist [facility] Bacteria/Leyla da Culture, Blood No growth after 5 days of incubation. 08/20/2023 6:02 AM CDT DTL Blood (Blood, Peripheral Draw) 08/15/2023 3:33 AM CDT 08/15/2023 5:58 AM CDT Comment:Specimen Source Site : Blood Narrative [facility] - 08/20/2023 6:02 AM CDT Received Bactec aerobic and Bactec anaerobic bottles Carlos Alberto Henosn M.D. LAB MICROBIOLOGY - G ENERAL ORDERABLES [facility] [address] [place] [address], [facility] DTL [facility] [address] [place] [address] * (ABNORMAL) Basic Metabolic Panel (08/15/2023 3:31 AM CDT) Pathologist [facility] Potassium, S 4.0 3.6 - 5.2 mmol/L [...] Jakob De Paz M.D. LAB BLOOD ADD-ON Performing Organization Address City/[facility]/ZIP Co de Phone Number [facility] [address] [place] [address] * Bacteria / Yomaira Culture, Blood #1 (08/15/2023 3:31 AM CDT) Pathologist [facility] Bacteria/Leyla da Culture, Blood No growth after 5 days of incubation. 08/20/2023 6:02 AM CDT DTL Blood (Blood, Peripheral Draw) 08/15/2023 3:31 AM CDT 08/15/2023 5:59 AM CDT Comment:Specimen Source Site : Blood Carlos Alberto Henson M.D. LAB MICROBIOLOGY - G ENERAL ORDERABLES Performing Organization Address [facility] Co de Phone Number [facility] [address] [place] [address] * (ABNORMAL) CBC with Differential, Blood (08/15/2023 3:30 AM CDT) [facility] Hemoglobin 9.5(L) 13.2 - 16.6 g/dL 08/15/2023 [...] Carlos Alberto Henson M.D. LAB BLOOD ADD-ON [facility] [address] [place] [address], [facility] DTL [facility] [address] [place] [address] [facility] [address] [place] [address] * (ABNORMAL) CBC with Differential, Blood (08/14/2023 8:08 PM CDT) Pathologist [facility] Hemoglobin 9.8(L) 13.2 - 16.6 g/dL 08/14/2023 [...] Carlos Alberto Henson M.D. LAB BLOOD ADD-ON [facility] [address] [place] [address], [facility] STMA [facility] [address] [place] [address] [facility] [address] [place] [address] * Transfuse Red Blood Cells : , [...] with Differential, Blood (08/14/2023 3:18 AM CDT) Hemoglobin 7.6(L) 13.2 - 16.6 g/dL 08/14/2023 [...] Carlos Alberto Henson M.D. LAB BLOOD ADD-ON [facility] [address] [place] [address], [facility] STMA [facility] [address] [place] [address] [facility] [address] [place] [address] * (ABNORMAL) Basic Metabolic Panel (08/14/2023 3:18 [...] Carlos Alberto Henson M.D. LAB BLOOD ADD-ON [facility] [address] [place] [address], [facility] DTL [facility] [address] [place] [address] * Type and Screen (with Reflex Antibody ID) (08/13/2023 7:35 PM CDT) Pathologist [facility] ABORh O Pos Not applicable 08/13/2023 7:58 PM CDT STRM Antibody Screen Negative Negative 08/13/2023 8:13 PM CDT STRM Type & Screen Expiration 08/16/2023 23:59 08/13/2023 7:58 PM CDT STRM Testing Location [place] DEFAULT 08/13/2023 7:39 PM CDT STRM Blood (Blood, Venous) 08/13/2023 7:35 PM CDT 08/13/2023 7:39 PM CDT Carlos Alberto Henson M.D. LAB BLOOD BANK TEST ORDERABLES Performing Organization Address City/[facility]/ZIP Co de Phone Number [facility] [address] [place] [address] * (ABNORMAL) Bacteria / Yomaira Culture, Blood #1 (08/13/2023 7:35 PM CDT) [facility] Bacteria/Cand jessica Culture, Blood ESCHERICHIA COLI Growth after 11 Hours (A) 08/16/2023 11:17 AM CDT DTL Comment: 3 of 3 Bottles, Susceptibilities performed on another specimen [id number] Blood (Blood, Peripheral Draw) 08/13/2023 7:35 PM CDT 08/13/2023 8:15 PM CDT Comment:Specimen Source Site : Blood Carlos Alberto Henson M.D. LAB MICROBIOLOGY - G ENERAL ORDERABLES [facility] [address] [place] [address], [facility] [address] [place] [address] * ECG 12 Lead (08/13/2023 7:02 PM CDT) [facility] Ventricular Rate ECG/Min 128 BPM MUSE MD Interval 138 ms MUSE QRSD Interval 64 ms MUSE QT Interval 304 ms MUSE QTC Interval 443 ms MUSE P [place] 45 degrees MUSE R [place] 34 degrees MUSE T Wave [place] 46 degrees MUSE 08/13/2023 7:02 PM CDT [...] CDT Comment:Specimen Source Site : Blood Narrative [facility] - 08/16/2023 11:17 AM CDT Received [...] - G ENERAL ORDERABLES Performing Organization Address City/[facility]/ZIP [place] [address], [facility] [place] [address] * Magnesium (08/13/2023 5:27 PM CDT) Magnesium, S 1.9 1.7 - 2.3 mg/dL 08/13/2023 6:12 PM CDT DTL Blood (Blood, Venous) 08/13/2023 5:27 PM CDT 08/13/2023 5:58 PM CDT Carlos Alberto Henson M.D. LAB BLOOD ADD-ON [facility] [address] [place] [address], [facility] [address] [place] [address] * (ABNORMAL) Hepatic Function Panel (08/13/2023 5:27 [...] Carlos Alberto Henson M.D. LAB BLOOD ADD-ON [facility] [address] [place] [address], [facility] [address] [place] [address] * (ABNORMAL) Basic Metabolic Panel (08/13/2023 5:27 [...] Carlos Alberto Henson M.D. LAB BLOOD ADD-ON [place] [address] [place] [address], [facility] [address] [place] [address] * Prothrombin Time (PT) (08/13/2023 5:27 PM [...] Carlos Alberto Henson M.D. LAB BLOOD ADD-ON [facility] [address] [place] [address], [facility] STMA [facility] [address] [place] [address] * (ABNORMAL) CBC with Differential, Blood (08/13/2023 5:27 PM CDT) [facility] Hemoglobin 10.0(L) 13.2 - 16.6 g/dL 08/13/2023 [...] Carlos Alberto Henson M.D. LAB BLOOD ADD-ON [facility] [address] [place] [address], [place] STMA [facility] [address] [place] [address] DHPM [facility] [address] [place] [address] * (ABNORMAL) Dipstick, Urine (08/13/2023 5:07 PM [...] Carlos Alberto Henson M.D. LAB URINE ORDERABLES [facility] [address] [place] [address], [place] DTL [facility] [address] [place] [address] * Osmolality, Urine (08/13/2023 5:07 PM CDT) Osmolality, U 351 150 - 1150 mOsm/kg 08/13/2023 7:46 PM CDT DTL Urine 08/13/2023 5:07 PM CDT 08/13/2023 5:45 PM CDT Carlos Alberto Henson M.D. LAB URINE ORDERABLES [facility] [address] [place] [address], [facility] [address] [place] [address] * (ABNORMAL) Microscopic Manual (08/13/2023 5:07 PM [...] M.D. LAB URINE ORDERABLES Performing Organization Address City/[facility]/ZIP Co de Phone Number [facility] [address] [place] [address], [facility] [address] [place] [address] * pH, Random, Urine (08/13/2023 5:07 PM CDT) pH, Random, U 7.0 4.5 - 8.0 08/13/2023 7:46 PM CDT DTL Urine 08/13/2023 5:07 PM CDT 08/13/2023 5:45 PM CDT Carlos Alberto Henson M.D. LAB URINE ORDERABLES [facility] [address] [place] [address], [facility] DTL [facility] [address] [place] [address] * (ABNORMAL) Bacterial Culture, Aerobic + Susceptibility, [...] Carlos Alberto Henson M.D. LAB MICROBIOLOGY - [facility] ORDERABLES [facility] [address] [place] [address], [place] [facility] [address] [place] [address] * (ABNORMAL) Urinalysis, with Microscopic: Urine, Midstream [...] CDT DTL Predicted 24 [place] [address](H) <229 mg/24 h 08/13/2023 8:50 PM CDT DTL Predicted Range [id number] mg/24 h 08/13/2023 8:50 PM CDT DTL Comment Micro done on <2.5 mL 08/13/2023 7:55 PM CDT DTL Urine (Urine, Midstream) 08/13/2023 5:07 PM CDT 08/13/2023 5:44 PM CDT Carlos Alberto Henson M.D. LAB URINE ORDERABLES [facility] [address] [place] [address], [place] DTL [facility] [address] [place] [address] * Interpretation of Outside CT Abdomen and [...] sclerotic lesion along theanterior aspect of S1 (). This is new since 2019. Additional new sclerotic lesion seen along the left lateralsacrum (). Lung bases are clear. IMPRESSION: 1. Since [...] Diagnosis Hematuria- Primary Decline Functional Status [R53.81] Hematuria [R31.9] documented in this encounter Admitting Diagnoses Diagnosis Hematuria documented in this encounter Administered Medications Inactive Administered Medications - up to 3 most recent administrations Medication Order MAR Action Action Date Dose Rate Site acetaminophen tablet 1,000 mg (TYLENOL) 1,000 mg, oral, Once, On 08/15/23 at 0800, For 1 dose, Pre-Op Given 08/15/2023 7:56 AM CDT 1,000 mg acetaminophen tablet 650 mg (TYLENOL) 650 mg, oral, Every 6 hours PRN, moderate pain or score 4-6 of 10, severe pain or score 7-10 of 10, Starting on 08/13/23 at 1725 Given 08/17/2023 4:57 AM CDT 650 mg Given 08/15/2023 2:03 AM CDT 650 mg acetaminophen tablet 650 mg (TYLENOL) 650 mg, oral, Every 6 hours, First dose (after last modification) on 08/17/23 at 1100 Given 08/20/2023 4:10 PM CDT 650 mg Given 08/20/2023 10:27 AM CDT 650 mg Given 08/20/2023 5:57 AM CDT 650 mg acetaminophen tablet 650 mg (TYLENOL) 650 mg, gastric tube, Every 6 hours, First dose (after last modification) on 08/20/23 at 2300 Given 08/23/2023 11:41 AM CDT 650 mg Given 08/23/2023 5:09 AM CDT 650 mg Given 08/22/2023 11:19 PM CDT 650 mg acetaminophen tablet 650 mg (TYLENOL) 650 mg, oral, Every 6 hours scheduled, First dose (after last modification) on Tue08/23/23 at 1800 Given 08/26/2023 6:24 AM CDT 650 mg Given 08/25/2023 11:36 AM CDT 650 mg Given 08/25/2023 6:39 AM CDT 650 mg Adult central parenteral nutrition (CPN) intravenous, at 41.7 mL/hr, Administer over 24 Hours, Continuous PN, Starting on Tue08/22/23 at 2100, For 24 hours, Use a 0.22 micron filter., Indication: Small bowel obstruction (distal) New Bag 08/22/2023 10:15 PM CDT 41.7 mL/h r Adult central parenteral nutrition (CPN) intravenous, at 41.7 mL/hr, Administer over 24 Hours, Continuous PN, Starting on Tue08/23/23 at 2100, For 24 hours, Use a 0.22 micron filter., Indication: Small bowel obstruction (distal) New Bag 08/23/2023 9:26 PM CDT 41.7 mL/hr Adult central parenteral nutrition (CPN) intravenous, at 41.7 mL/hr, Administer over 24 Hours, Continuous PN, Starting on Tue08/24/23 at 2100, For 24 hours, Use a 0.22 micron filter., Indication: Small bowel obstruction (distal) New Bag 08/24/2023 9:56 PM CDT 41.7 mL/hr Adult central parenteral nutrition (CPN) intravenous, at 41.7 mL/hr, Administer over 24 Hours, Continuous PN, Starting on Tue08/25/23 at 2100, For 24 hours, Use a 0.22 micron filter., Indication: Small bowel obstruction (distal) New Bag 08/25/2023 9:28 PM CDT 41.7 mL/hr alum-mag hydroxide-simeth 200-200-20 mg/5 mL suspension 30 mL (Maalox) 30 mL, oral, Every 6 hours PRN, indigestion, Starting on Tue08/19/23 at 0203 Given 08/19/2023 2:11 AM CDT 30 mL alum-mag hydroxide-simeth 200-200-20 mg/5 mL suspension 30 mL (Maalox) 30 mL, gastric tube, Every 6 hours PRN, indigestion, Starting on Tue08/20/23 at 2000 Given 08/21/2023 10:16 PM CDT 30 mL alum-mag hydroxide-simeth 200-200-20 mg/5 mL suspension 30 mL (Maalox) 30 mL, oral, Every 6 hours PRN, indigestion, Starting on Tue08/23/23 at 1547 apixaban tablet 2.5 mg (ELIQUIS) 2.5 mg, [...] Given 08/15/2023 7:56 AM CDT 40 mg bisacodyL suppository 10 mg (DULCOLAX) 10 mg, rectal, 2 times daily, First dose on Tue08/19/23 at 1745 Given 08/23/2023 9:21 AM CDT 10 mg Given 08/22/2023 10:34 PM CDT 10 mg Given 08/21/2023 8:22 PM CDT 10 mg bisacodyL suppository 10 mg (DULCOLAX) 10 mg, rectal, 2 times daily, First dose (after last reorder) on Tue08/26/23 at 0800 Given 08/26/2023 9:15 AM CDT 10 mg cefdinir capsule 300 mg (OMNICEF) 300 mg, oral, 2 times daily before breakfast and dinner, First dose on Tue08/22/23 at 1600, Administer 2 hours before or 6 hours after taking magnesium, aluminum (antacids, laxatives) or calcium and iron supplements (multivitamins); may be taken with calcium or iron if given with food., Drug Monitoring Program: Pharmacist to adjust medication dosing based on indication and drug clearance factors., Indications: Lower UTI, catheter Given 08/22/2023 4:29 PM CDT 3 00 mg cefdinir suspension 300 mg (OMNICEF) 300 mg, gastric tube, 2 times daily before breakfast and dinner, First dose on Tue08/22/23 at 1700, Administer 2 hours before or 6 hours after taking magnesium, aluminum (antacids, laxatives) or calcium and iron supplements (multivitamins); may be taken with calcium or iron if given with food., Drug Monitoring Program: Pharmacist to adjust medication dosing based on indication and drug clearance factors., Indications: Lower UTI, catheter Given 08/23/2023 6:17 AM CDT 300 mg Given 08/22/2023 5:36 PM CDT 300 mg cefdinir suspension 300 mg (OMNICEF) 300 mg, oral, 2 times daily before breakfast and dinner, First dose (after last modification) on Tue08/23/23 at 1615, Administer 2 hours before or 6 hours after taking magnesium, aluminum (antacids, laxatives) or calcium and iron supplements (multivitamins); may be taken with calcium or iron if given with food., Drug Monitoring Program: Pharmacist to adjust medication dosing based on indication and drug clearance factors., Indications: Lower UTI, catheter Given 08/26/2023 6:27 AM CDT 3 00 mg Given 08/25/2023 5:50 PM CDT 300 mg Given 08/25/2023 6:40 AM CDT 300 mg cefTRIAXone in dextrose (iso osm) IVPB 2 g (ROCEPHIN) 2 g, intravenous, at 200 mL/hr, Administer over 15 Minutes, Once, On Tue08/13/23 at 1730, For 1 dose, Drug Monitoring Program: Pharmacist to adjust medication dosing based on indication and drug clearance factors., Indications: Lower UTI, catheter New Bag 08/13/2023 7:48 PM CDT 2 g 200 mL/hr cefTRIAXone in dextrose (iso osm) IVPB 2 g (ROCEPHIN) 2 g, intravenous, at 200 mL/hr, Administer over 15 Minutes, Once, On Tue08/14/23 at 2000, For 1 dose, Drug Monitoring Program: Pharmacist to adjust medication dosing based on indication and drug clearance factors., Indications: Blood stream infection New Bag 08/14/2023 8:15 PM CDT 2 g 200 mL/hr cefTRIAXone in dextrose (iso osm) IVPB 2 g (ROCEPHIN) 2 g, intravenous, at 200 mL/hr, Administer over 15 Minutes, Every 24 hours, First dose on Tue08/15/23 at 2000, Drug Monitoring Program: Pharmacist to adjust medication dosing based on indication and drug clearance factors., Indications: Blood stream infection New Bag 08/21/2023 8:22 PM CDT 2 g 200 mL/hr New Bag 08/20/2023 9:08 PM CDT 2 g 200 mL/hr New Bag 08/19/2023 7:29 PM CDT 2 g 200 mL/hr clopidogreL tablet 75 mg (PLAVIX) 75 mg, oral, Daily, First dose on Tue08/26/23 at 0900 Given 08/26/2023 9:15 AM CDT 75 mg D5W with KCl 20 mEq/L infusion 100 mL/hr, intravenous, Continuous, Starting on Tue08/21/23 at 0745, For 1 day 14 hours New 08/22/2023 4:48 AM CDT 100 mL/hr 100 mL/hr 08/21/2023 6:02 PM CDT 100 mL/hr 100 mL/hr 08/21/2023 8:54 AM CDT 100 mL/hr 100 mL/hr diatrizoate meglumine-diatrizoate sodium 66-10 % solution 100 mL (GASTROGRAFIN) 100 mL, gastric tube, Once, On Tue08/22/23 at 1100, For 1 dose, Administer two hours after NG tube insertion when stomach contents have been evacuated. Dilute in 50 mL tap water (OK to use sterile water). Clamp NG tube for 2 hours after administration of Diatrizoate Methylglucamine and then to low intermittent suction. Given 08/22/2023 11:10 AM CDT 100 mL docusate sodium capsule 100 mg (COLACE) 100 mg, oral, 2 times daily, First dose on Tue08/19/23 at 2100, Do NOT crush or chew. Given 08/20/2023 8:44 AM CDT 1 00 mg Given 08/19/2023 7:29 PM CDT 100 mg docusate sodium liquid 100 mg (COLACE) 100 mg, gastric tube, 2 times daily, First dose (after last modification) on Tue08/20/23 at 2100 Given 08/23/2023 9:21 AM CDT 100 mg Given 08/22/2023 9:28 AM CDT 100 mg Given 08/21/2023 8:22 PM CDT 100 mg docusate sodium liquid 100 mg (COLACE) 100 mg, oral, 2 times daily, First dose (after last modification) on Tue08/23/23 at 2100 Given 08/26/2023 9:15 AM CDT 100 mg Given 08/25/2023 9:32 PM CDT 100 mg Given 08/24/2023 9:51 PM CDT 100 mg enzalutamide capsule 120 mg (XTANDI) PATIENT'S OWN MED 120 mg, oral, Daily, First dose (after last modification) on Tue08/17/23 at 1230, Patient may use home supply. 08/17/23: Id'ed by [facility] [place] Rx# [id number], filled 07/22/23. HAZARDOUS - Handle with care. Swallow whole. Do NOT crush, chew or open capsule. Given 08/26/2023 9:12 AM CDT 120 mg Given 08/25/2023 9:08 AM CDT 120 mg Given 08/24/2023 9:12 AM CDT 120 mg fat emulsion [id number] & fish oil infusion 50 g (SMOFlipid) 50 g, intravenous, at 10.4 mL/hr, Administer over 24 Hours, Every 24 hours, First dose on 08/22/23 at 2100, For 3 doses, Use a 1.2 micron filter. When fat emulsion is ordered along with a CPN containing iron dextran, administer fat emulsion and CPN through separate lines. New Bag 08/24/2023 9:55 PM CDT 50 g 10. 4 mL/hr New Bag 08/23/2023 9:27 PM CDT 50 g 10.4 mL/hr New Bag 08/22/2023 10:15 PM CDT 50 g 10.4 mL/hr heparin (porcine) 100 Units/mL in NaCl 0.45% 250 mL infusion 11 Units/kg/hr ? 91.2 kg Dosing weight (10.032 mL/hr, rounded to 10 mL/hr), intravenous, Continuous, Starting on Tue08/17/23 at [...] Repeat aPTT 6 hours after heparin resumed New Bag 08/21/2023 2:52 PM CDT 11 Units/kg/hr 10 mL/hr New Bag 08/20/2023 1:18 PM CDT 11 Units/kg/hr 10 mL/hr New Bag 08/19/2023 11:58 AM CDT 11 Units/kg/hr 10 mL/hr heparin (porcine) 100 Units/mL in NaCl 0.45% 250 mL infusion 0-30 Units/kg/hr ? 91.2 kg Dosing weight (0-27.36 mL/hr), intravenous, Continuous, Starting on Tue08/22/23 at 0945, 25,000 Units in 250 mL, Intensity type: Low, Starting Dose (units/kg/hr): 12, Loading Dose: 0, Anti-Xa < 0.1: Adjust dose (Units/kg/hr) by: 4, Anti-Xa < 0.1: Repeat anti-Xa: 6 hours, Anti-Xa 0.1-0.19: Adjust Dose (Units/kg/hr) by: 2, Anti-Xa 0.1-0.19: Repeat anti-Xa: 6 hours, Anti-Xa 0.2-0.5: Adjust Dose (Units/kg/hr) by: 0, Anti-Xa 0.2-0.5: Repeat anti-Xa: 6 hours. If two consecutive therapeutic result, re-check next AM., Anti-Xa 0.51-0.6: Adjust Dose (Units/kg/hr) by: -1, Anti-Xa 0.51-0.6: Repeat anti-Xa: 6 hours after dose change, Anti-Xa 0.61-0.9: Hold Infusion: Stop infusion for 1 hour, Anti-Xa 0.61-0.9: Adjust Dose (Units/kg/hr) by: -2, Anti-Xa 0.61-0.9: Repeat anti-Xa: 6 hours after Heparin resumed, Anti-Xa > 1.5: Hold Infusion: Stop infusion for 2 hours, Anti-Xa > 1.5: Adjust Dose (Units/kg/hr): -4, Anti-Xa > 1.5: Repeat anti-Xa: Repeat antiXa: 6 hours after Heparin resumed Rate/Dose Change 08/26/2023 4:07 AM CDT 11 Units/kg/hr 10 mL/hr New Bag 08/25/2023 9:25 PM CDT 11 Units/kg/hr 10 mL/hr Rate/Dose Change 08/25/2023 4:15 AM CDT 11 Units/kg/hr 10 mL/hr heparin (porcine) injection 5,000 Units 5,000 Units, subcutaneous, Every 8 hours scheduled, First dose on Tue08/15/23 at 1800 Given 08/16/2023 5:25 AM CDT 5,000 Units Left Upper Arm (Back ) Given 08/15/2023 6:03 PM CDT 5,000 Units L eft Upper Arm (Back) iohexoL 300 mg iodine/mL solution 1-200 mL (OMNIPAQUE) 1-200 mL, intravenous, Once in imaging, contrast, Starting on 08/20/23 at 1425, For 1 dose, Imaging Protocol Orders, Dose per Radiant Medication Guidelines Given 08/20/2023 2:40 PM CDT 140 mL iohexol dilution solution 7,500 mg (OMNIPAQUE) 7,500 [...] 6:30 PM CDT 7,500 mg Lactated Ringer's bolus 500 mL 500 mL, intravenous, at 500 mL/hr, Administer over 1 Hours, Once, On Tue08/19/23 at 1615, For 1 dose New Bag 08/19/2023 4:45 PM CDT 500 mL 500 mL/hr Lactated Ringer's 20 mL/hr, intravenous, Continuous, Starting on Tue08/15/23 at 1300, PACU & Post-Op New Bag 08/15/2023 2:59 PM CDT 20 mL/hr 20 mL/hr Lactated Ringer's 75 mL/hr, intravenous, Continuous, Starting on Tu08/16/23 at 0630 New Bag 08/17/2023 2:26 AM CDT 75 mL/hr 75 mL/hr New Bag 08/16/2023 3:58 PM CDT 75 mL/hr 75 mL/hr New Bag 08/16/2023 7:29 AM CDT 75 mL/hr 75 mL/hr Lactated Ringer's 100 mL/hr, intravenous, Continuous, Starting on 08/20/23 at 0845 New Bag 08/21/2023 4:29 AM CDT 100 mL/hr 100 mL/hr New Bag 08/20/2023 6:45 PM CDT 100 mL/hr 100 mL/hr New Bag 08/20/2023 8:44 AM CDT 100 mL/hr 100 mL/hr Lactated Ringer's 1.5 mL/kg/hr ? 75 kg [place] weight (112.5 mL/hr, rounded to 113 mL/hr), intravenous, Continuous, Starting on Tue08/22/23 at 1030, Conditional Phase Pre-Gastrografin Administration. (Rate = 1.5 mL/kg/hr ideal body weight) Lactated Ringer's 0.75 mL/kg/hr ? 75 kg [place] weight (56.25 mL/hr, rounded to 56.3 mL/hr), intravenous, Continuous, Starting on Tue08/22/23 at 1100, Post-Gastrografin Administration (Rate=0.75 mL/kg/hr ideal body weight).Until patient able to tolerate oral intake greater than 500 mL over 24 hours. Then 20 mL/hr IV. lidocaine 5 % 1 patch (LIDODERM) 1 patch, transdermal, Administer over 12 Hours, Daily, First dose on Tue08/14/23 at 0900, Remove after 12 hours. Medication Applied 08/16/2023 8:28 AM CDT 1 patch Lower Back lidocaine-sodium bicarbonate (buffered) 0.9%-0.84% injection infiltration, As needed, Starting on Tue08/22/23 at 0835, Intra-Op Given 08/22/2023 8:35 AM CDT 12 mL metoprolol succinate 24 hr tablet 50 mg (TOPROL-XL) 50 mg, oral, Daily, First dose on Tue08/13/23 at 1645, Do NOT crush or chew. Given 08/20/2023 8:44 AM CDT 50 mg Given 08/19/2023 8:17 AM CDT 50 mg Given 08/18/2023 8:11 AM CDT 50 mg metoprolol tablet 25 mg (LOPRESSOR) 25 mg, oral, Once, On Tue08/15/23 at 0845, For 1 dose, Pre-Op Given 08/15/2023 8:18 AM CDT 25 mg metoprolol tartrate tablet 25 mg (LOPRESSOR) 25 mg, gastric tube, 2 times daily, First dose on Tue08/20/23 at 2100 Given 08/23/2023 9:21 AM CDT 25 mg Given 08/22/2023 11:19 PM CDT 25 mg Given 08/22/2023 9:27 AM CDT 25 mg metoprolol tartrate tablet 25 mg (LOPRESSOR) 25 mg, oral, 2 times daily, First dose (after last modification) on Tue08/23/23 at 2100 Given 08/26/2023 9:15 AM CDT 25 mg Given 08/25/2023 9:32 PM CDT 25 mg Given 08/25/2023 9:07 AM CDT 25 mg NaCl 0.9 % bolus 1,000 mL 1,000 mL, intravenous, at 1,000 mL/hr, Administer over 1 Hours, Once, On Tue08/13/23 at 1830, For 1 dose New Bag 08/13/2023 6:59 PM CDT 1,000 mL 1000 mL/hr NaCl 0.9 % bolus 1,000 mL 1,000 mL, intravenous, at 500 mL/hr, Administer over 2 Hours, Once, On Tue08/13/23 at 2315, For 1 dose New Bag 08/13/2023 11:06 PM CDT 1,000 mL 500 mL/hr NaCl 0.9 % irrigation solution 3,000 mL 3,000 mL, irrigation, Continuous, Starting on 08/13/23 at 1700, FOR BLADDER IRRIGATION ONLY, NOT FOR IV USE New Bag 08/13/2023 5:11 PM CDT 3,000 mL NaCl 0.9 % irrigation solution 3,000 mL 3,000 mL, irrigation, Continuous, Starting on Tue08/13/23 at 1700, FOR BLADDER IRRIGATION ONLY, NOT FOR IV USE New Bag 08/13/2023 5:20 PM CDT 3,000 mL NaCl 0.9 % irrigation solution 3,000 mL 3,000 mL, irrigation, Continuous, Starting on Tue08/19/23 at 1745, FOR BLADDER IRRIGATION ONLY, NOT FOR IV USE NaCl 0.9 % irrigation solution 3,000 mL 3,000 mL, irrigation, Continuous, Starting on Tue08/19/23 at 1745, FOR BLADDER IRRIGATION ONLY, NOT FOR IV USE New Bag 08/21/2023 5:22 PM CDT 3,000 mL New Bag 08/19/2023 5:50 PM CDT 3,000 mL NaCl 0.9% infusion 1-999 mL/hr, intravenous, As needed, Between Consecutive Piggyback Medications, Starting on Tue08/23/23 at 1531, Infuse at the same rate as the piggyback until tubing clears or up to a volume of 20 mL. Select for IV medication administration when no maintenance IV available or when IV medications are not compatible with maintenance fluid. NaCl 0.9% infusion 1-999 mL/hr, intravenous, As needed, Post Medications (Hazardous/Low Fluid Volume), Starting on Tue08/23/23 at 1531, Infuse at the same rate as the medication until tubing cleared of medication, then discard. New Bag 08/23/2023 3:32 PM CDT 100 mL/hr 10 0 mL/hr NaCl 0.9% infusion 20-500 mL/hr, intravenous, Once as needed, Between Units of Blood Products, Starting on Tue08/26/23 at 0611, For 1 dose, Infuse at the same rate as the blood infusion until tubing cleared. Nurse may reduce rate to 20 mL/hour or as otherwise directed until next blood infusion arrives then discontinue when infusion complete. NaCl 0.9% infusion 20-500 mL/hr, intravenous, Once as needed, Between Units of Blood Products, Starting on Tue08/26/23 at 0729, For 1 dose, Infuse at the same rate as the blood infusion until tubing cleared. Nurse may reduce rate to 20 mL/hour or as otherwise directed until next blood infusion arrives then discontinue when infusion complete. NaCl 0.9% infusion 20-500 mL/hr, intravenous, Once as needed, Between Units of Blood Products, Starting on Tue08/26/23 at 0849, For 1 dose, Infuse at the same rate as the blood infusion until tubing cleared. Nurse may reduce rate to 20 mL/hour or as otherwise directed until next blood infusion arrives then discontinue when infusion complete. naloxone injection 0.2 mg (NARCAN) 0.2 mg, intravenous, As needed, respiratory depression, Starting on Tue08/16/23 at 0612, For RASS Score -4 or less, respiratory rate of less than 8 breaths/min. Notify provider/service and rapid response team (if available at institution). ondansetron (PF) injection 4 mg (ZOFRAN) 4 mg, intravenous, Once, On Tue08/14/23 at 0030, For 1 dose Given 08/14/2023 12:36 AM CDT 4 mg ondansetron (PF) injection 4 mg (ZOFRAN) 4 mg, intravenous, Every 6 hours PRN, nausea, vomiting, Starting on Tue08/14/23 at 1014 Given 08/18/2023 8:15 PM CDT 4 mg Given 08/18/2023 11:21 AM CDT 4 mg oxyCODONE IR tablet 5 mg (ROXICODONE) 5 mg, oral, Once as needed, moderate pain or score 4-6 of 10, severe pain or score 7-10 of 10, Starting on Tue08/15/23 at 0749, For 1 dose, Pre-Op Given 08/15/2023 7:57 AM CDT 5 mg oxyCODONE solution 2.5 mg (ROXICODONE) 2.5 mg, oral, Every 4 hours PRN, moderate pain or score 4-6 of 10, Starting on Tue08/23/23 at 1547 oxyCODONE solution 5 mg (ROXICODONE) 5 mg, oral, Every 4 hours PRN, severe pain or score 7-10 of 10, Starting on Tue08/23/23 at 1547 pantoprazole injection 40 mg (PROTONIX) 40 mg, intravenous, Every 24 hours scheduled, First dose on Tue08/22/23 at 0245, Administer IV push over 2 minutes. Add 10 mL NS to 40 mg vial for a final concentration of 4 mg/mL. Given 08/26/2023 9:16 AM CDT 4 0 mg Given 08/25/2023 9:07 AM CDT 40 mg Given 08/24/2023 9:11 AM CDT 40 mg polyethylene glycol powder packet 17 g (MIRALAX) 17 g, oral, 2 times daily, First dose (after last modification) on Tue08/19/23 at 1700, Dissolve in 240 mLs (8 ounces) of water prior to giving. Avoid mixing with starch-based thickened liquids., On hold since 08/20/2023 at 2000 until manually unheld Given 08/20/2023 8:44 AM CDT 17 g Given 08/19/2023 4:39 PM CDT 17 g potassium chloride IVPB 10 mEq 10 mEq, intravenous, at 100 mL/hr, Administer over 60 Minutes, Every 1 hour, First dose on Tue08/22/23 at 0630, For 4 doses, For K 3-3.4 mEq/L - give total of 40 mEq, Monitor the following for replacement: Potassium, Replace Potassium per: Standard Schedule New Bag 08/22/2023 1:13 PM CDT 10 mEq 100 mL/hr 08/22/2023 12:11 PM CDT 10 mEq 100 mL/hr 08/22/2023 9:19 AM CDT 10 mEq 100 mL/hr potassium chloride IVPB 10 mEq 10 mEq, intravenous, at 100 mL/hr, Administer over 60 Minutes, Every 1 hour, First dose (after last reorder) on Tue08/23/23 at 1230, For 4 doses, For K 3-3.4 mEq/L - give total of 40 mEq, Monitor the following for replacement: Potassium, Replace Potassium per: Standard Schedule New 08/23/2023 6:08 PM CDT 10 mEq 100 mL/hr 08/23/2023 5:16 PM CDT 10 mEq 100 mL/hr 08/23/2023 4:30 PM CDT 10 mEq 100 mL/hr potassium phosphates 30 mmol in NaCl 0.9% IVPB 30 mmol (rounded from 22.8 mmol = 0.25 mmol/kg ? 91.2 kg Dosing weight), intravenous, at 116 mL/hr, Administer over 4.4 Hours, Once, On Tue08/23/23 at 0630, For 1 dose, Peripheral Line: Administrater at 6.8 mmoL phosphate/hr, Monitor the following for replacement: Phosphorus New Bag 08/23/2023 8:05 AM CDT 30 mmol 116 mL/hr potassium phosphates 30 mmol in NaCl 0.9% IVPB 30 mmol (rounded from 22.8 mmol = 0.25 mmol/kg ? 91.2 kg Dosing weight), intravenous, at 116 mL/hr, Administer over 4.4 Hours, Once, On Tue08/24/23 at 0630, For 1 dose, Peripheral Line: Administrater at 6.8 mmoL phosphate/hr, Monitor the following for replacement: Phosphorus New Bag 08/24/2023 7:47 AM CDT 30 mmol 116 mL/hr prochlorperazine injection 5 mg (COMPAZINE) 5 mg, intravenous, Every 6 hours PRN, nausea, vomiting, Starting on Tue08/19/23 at 0203 Given 08/19/2023 2:11 AM CDT 5 mg rivaroxaban tablet 10 mg (XARELTO) 10 mg, oral, Daily, First dose on Tue08/26/23 at 0930 Given 08/26/2023 9:39 AM CDT 10 mg rosuvastatin tablet 40 mg (CRESTOR) 40 mg, oral, Daily, First dose on Tue08/16/23 at 0900 Given 08/20/2023 8:48 AM CDT 40 mg Given 08/19/2023 8:17 AM CDT 40 mg Given 08/18/2023 8:12 AM CDT 40 mg rosuvastatin tablet 40 mg (CRESTOR) 40 mg, gastric tube, Daily, First dose (after last modification) on Tue08/21/23 at 0900 Given 08/23/2023 9:21 AM CDT 40 mg Given 08/22/2023 9:27 AM CDT 40 mg Given 08/21/2023 8:54 AM CDT 40 mg rosuvastatin tablet 40 mg (CRESTOR) 40 mg, oral, Daily, First dose (after last modification) on Tue08/24/23 at 0900 Given 08/26/2023 9:15 AM CDT 40 mg Given 08/25/2023 9:07 AM CDT 40 mg Given 08/24/2023 9:11 AM CDT 40 mg silodosin capsule 8 mg (RAPAFLO) 8 mg, gastric tube, Daily, First dose on Tue08/21/23 at 0900, Do NOT crush or chew. Capsule may be opened and the contents taken without crushing or chewing. Given 08/23/2023 9:21 AM CDT 8 mg Given 08/22/2023 9:27 AM CDT 8 mg Given 08/21/2023 8:54 AM CDT 8 mg silodosin capsule 8 mg (RAPAFLO) 8 mg, oral, Daily, First dose (after last modification) on Tue08/24/23 at 0900, Do NOT crush or chew. Capsule may be opened and the contents taken without crushing or chewing. Given 08/26/2023 9:15 AM CDT 8 mg Given 08/25/2023 9:07 AM CDT 8 mg Given 08/24/2023 9:11 AM CDT 8 mg sodium chloride (PF) 0.9 % injection 1-100 mL 1-100 mL, intravenous, Once, On 08/20/23 at 1445, For 1 dose, Imaging Protocol Orders, Dose per Radiant Medication Guidelines Given 08/20/2023 2:40 PM CDT 50 mL solifenacin tablet 5 mg (VESICARE) 5 mg, oral, Daily, First dose on 08/14/23 at 0900, mirabegron 50 mg daily was interchanged for solifenacin 5 mg oral daily See tube feeding guidelines for tube feeding administration instructions. Given 08/14/2023 9:22 AM CDT 5 mg tamsulosin 24 hr capsule 0.4 mg (FLOMAX) 0.4 mg, oral, Daily, First dose on 08/14/23 at 0900, Swallow whole. Do NOT crush, chew or open capsule. Given 08/20/2023 8:44 AM CDT 0.4 mg Given 08/19/2023 8:17 AM CDT 0.4 mg Given 08/18/2023 8:11 AM CDT 0.4 mg trospium tablet 20 mg (SANCTURA) 20 mg, oral, 2 times daily before breakfast and dinner, First dose on Tu08/16/23 at 0745, Administer with water at least 1 hr prior to meals., Restriction Criteria (Pharmacy will review and approve if criteria met): Use in patients 65 years of age or older Given 08/20/2023 4:10 PM CDT 20 mg Given 08/20/2023 6:05 AM CDT 20 mg Given 08/19/2023 4:39 PM CDT 20 mg trospium tablet 20 mg (SANCTURA) 20 mg, gastric tube, 2 times daily before breakfast and dinner, First dose (after last modification) on 08/21/23 at 0700, Administer with water at least 1 hr prior to meals., Restriction Criteria (Pharmacy will review and approve if criteria met): Use in patients 65 years of age or older Given 08/23/2023 6:17 AM CDT 20 mg Given 08/22/2023 4:29 PM CDT 20 mg Given 08/22/2023 9:27 AM CDT 20 mg trospium tablet 20 mg (SANCTURA) 20 mg, oral, 2 times daily before breakfast and dinner, First dose (after last modification) on Tue08/23/23 at 1615, Administer with water at least 1 hr prior to meals., Restriction Criteria (Pharmacy will review and approve if criteria met): Use in patients 65 years of age or older Given 08/26/2023 6:26 AM CDT 20 mg Given 08/25/2023 5:49 PM CDT 20 mg Given 08/25/2023 6:38 AM CDT 20 mg documented in this encounter Active and Recently Administered Medications Times are shown in CDT. Scheduled Medication Order 08/24/2023 08/25/2023 08/26/2023 acetaminophen tablet 650 mg (TYLENOL) 650 mg, oral, Every 6 hours scheduled, First dose (after last modification) on Tue08/23/23 at 1800 0012 (Not Given - Provider: Brittni Howe R.N. - Reason: Patient/family refused)0615 (Given - Provider: Brittni Howe R.N.)1242 (Given - Provider: Tayler Forrest RRitesh.)1831 (Given - Provider: Mary Rosado RJonahN.) 0019 (Not Given - Provider: Fatuma See RJonahNJonah - Reason: Patient/family refused)0639 (Given - Provider: Fatuma See RJonahN.)1136 (Given - Provider: Tayler Forrest RRitesh.)1750 (Not Given - Provider: Antonia Salazar R.N. - Reason: Patient/family refused)2349 (Not Given - Provider: Edith Simental RJonahNJonah - Reason: Patient/family refused) 0624 (Given - Provider: Edith Simental RJonahNJonah)1244 (Not Given - Provider: Lupe Valdez R.N. - Reason: Patient/family refused) bisacodyL suppository 10 mg (DULCOLAX) 10 mg, rectal, 2 times daily, First dose (after last reorder) on Tue08/26/23 at 0800 0915 (Given - Provider: Lupe Valdez R.N.)1357 (Not Given - Provider: Lupe Valdez R.N. - Reason: Contraindicated) cefdinir suspension 300 mg (OMNICEF) 300 mg, oral, 2 times daily before breakfast and dinner, First dose (after last modification) on Tue08/23/23 at 1615, Administer 2 hours before or 6 hours after taking magnesium, aluminum (antacids, laxatives) or calcium and iron supplements (multivitamins); may be taken with calcium or iron if given with food., Drug Monitoring Program: Pharmacist to adjust medication dosing based on indication and drug clearance factors., Indications: Lower UTI, catheter 0615 (Given - Provider: Brittni Howe R.N.)1521 (Given - Provider: Mary Rosado R.N.) 0640 (Given - Provider: Fatuma See R.N.)1750 (Given - Provider: Antonia Salazar R.N.) 0627 (Given - Provider: Edith Simental R.N.)1600 (Due) clopidogreL tablet 75 mg (PLAVIX) 75 mg, oral, Daily, First dose on Tue08/26/23 at 0900 0915 (Given - Provider: Lupe Valdez R.N.) docusate sodium liquid 100 mg (COLACE) 100 mg, oral, 2 times daily, First dose (after last modification) on Tue08/23/23 at 2100 0852 (Not Given - Provider: Tayler Forrest R.N. - Reason: Patient/family refused)215 (Given - Provider: Fatuma See R.N.) 0852 (Not Given - Provider: Tayler Forrest R.N. - Reason: Patient/family refused)213 (Given - Provider: Antonia Salazar R.N.) 0915 (Given - Provider: Lupe Valdez R.N.) enzalutamide capsule 120 mg (XTANDI) PATIENT'S OWN MED 120 mg, oral, Daily, First dose (after last modification) on Tue08/17/23 at 1230, Patient may use home supply. 08/17/23: Id'ed by [facility] [place] Rx# [id number], filled 07/22/23. HAZARDOUS - Handle with care. Swallow whole. Do NOT crush, chew or open capsule. 911 (Given - Provider: Tayler Forrest R.N. - Comment: Pat Murray, -2nd RN) 907 (Given - Provider: Tayler Forrest R.N. - Comment: Pt 's own med from home) 911 (Given - Provider: Lupe Valdez R.N.) fat emulsion ulf-bfl-sodbc & fish oil infusion 50 g (SMOFlipid) (COMPLETED) 50 g, intravenous, at 10.4 mL/hr, Administer over 24 Hours, Every 24 hours, First dose on Tue08/22/23 at 2100, For 3 doses, Use a 1.2 micron filter. When fat emulsion is ordered along with a CPN containing iron dextran, administer fat emulsion and CPN through separate lines. 2154 (New Bag - Provider: Fatuma See R.N.) 154 (Handoff - Provider: Tayler Forrest R.N. - Comment: verified by Antonia Salazar, RN)2127 (Stopped - Provider: Antonia Salazar R.N.) lidocaine 5 % 1 patch (LIDODERM) 1 patch, transdermal, Administer over 12 Hours, Daily, First dose on Tue08/14/23 at 0900, Remove after 12 hours. 0858 (Not Given - Provider: Tayler Forrest R.N. - Reason: Patient/family refused) 0852 (Not Given - Provider: Tayler Forrest R.N. - Reason: Patient/family refused) 0911 (Not Given - Provider: Lupe Valdez R.N. - Reason: Patient/family refused) metoprolol tartrate tablet 25 mg (LOPRESSOR) 25 mg, oral, 2 times daily, First dose (after last modification) on Tue08/23/23 at 2100 0911 (Given - Provider: Tayler Forrest R.N.)215 (Given - Provider: Fatuma See R.N.) 09 (Given - Provider: Tayler Forrest R.N.)2131 (Given - Provider: Antonia Salazar R.N.) 0915 (Given - Provider: Lupe Valdez R.N.) pantoprazole injection 40 mg (PROTONIX) 40 mg, intravenous, Every 24 hours scheduled, First dose on Tue08/22/23 at 0245, Administer IV push over 2 minutes. Add 10 mL NS to 40 mg vial for a final concentration of 4 mg/mL. 0911 (Given - Provider: Tayler Forrest R.N.) 0907 (Given - Provider: Tayler Forrest R.N.) 0916 (Given - Provider: Lupe Valdez R.N.) polyethylene glycol powder packet 17 g (MIRALAX) 17 g, oral, 2 times daily, First dose (after last modification) on Tue08/19/23 at 1700, Dissolve in 240 mLs (8 ounces) of water prior to giving. Avoid mixing with starch-based thickened liquids., On hold since 08/20/2023 at 2000 until manually unheld 0900 (Not Given - Provider: Mary Rosado R.N. - Reason: See Provider Order)2100 (Not Given - Provider: Fatuma See R.N. - Reason: See Provider Order - Comment: dose auto held) 0900 (Dose Auto Held - Provider: Kimi Vieira M.D., M.S.)2100 (Not Given - Provider: Antonia Salazar R.N. - Reason: See Provider Order) 0900 (Not Given - Provider: Lupe Valdez R.N. - Reason: See Provider Order)1853 (Unheld by provider - Provider: Discharge Provider, Automatic) potassium phosphates 30 mmol in NaCl 0.9% IVPB (COMPLETED) 30 mmol (rounded from 22.8 mmol = 0.25 mmol/kg ? 91.2 kg Dosing weight), intravenous, at 116 mL/hr, Administer over 4.4 Hours, Once, On Tue08/24/23 at 0630, For 1 dose, Peripheral Line: Administrater at 6.8 mmoL phosphate/hr, Monitor the following for replacement: Phosphorus 0747 (New Bag - Provider: Brittni Howe R.N.) rivaroxaban tablet 10 mg (XARELTO) 10 mg, oral, Daily, First dose on Tue08/26/23 at 0930 0939 (Given - Provider: Zixi Valdez, R.N.) rosuvastatin tablet 40 mg (CRESTOR) 40 mg, oral, Daily, First dose (after last modification) on Tue08/24/23 at 0900 0911 (Given - Provider: Tayler Forrest R.N.) 0907 (Given - Provider: Tayler Forrest R.N.) 0915 (Given - Provider: Lupe Valdez R.N.) silodosin capsule 8 mg (RAPAFLO) 8 mg, oral, Daily, First dose (after last modification) on Tue08/24/23 at 0900, Do NOT crush or chew. Capsule may be opened and the contents taken without crushing or chewing. 0911 (Given - Provider: Tayler Forrest R.N.) 0907 (Given - Provider: Tayler Forrest R.N.) 0915 (Given - Provider: Lupe Valdez R.N.) trospium tablet 20 mg (SANCTURA) 20 mg, oral, 2 times daily before breakfast and dinner, First dose (after last modification) on Tue08/23/23 at 1615, Administer with water at least 1 hr prior to meals., Restriction Criteria (Pharmacy will review and approve if criteria met): Use in patients 65 years of age or older 0615 (Given - Provider: Brittni Howe R.N.)1520 (Given - Provider: Mary Rosado R.N.) 0638 (Given - Provider: Fatuma See R.N.)1749 (Given - Provider: Antonia Salazar R.N.) 0626 (Given - Provider: Edith Simental RJonahNJonah)1600 (Due) Continuous Medication Order 08/24/2023 08/25/2023 08/26/2023 Adult central parenteral nutrition (CPN) () intravenous, at 41.7 mL/hr, Administer over 24 Hours, Continuous PN, Starting on Tue08/24/23 at 2100, For 24 hours, Use a 0.22 micron filter., Indication: Small bowel obstruction (distal) 8666 (New Bag - Provider: Fatuma See R.N.) 1541 (Handoff - Provider: Tayler Forrest R.N. - Comment: verified by Antonia Salazar RN)2126 (Stopped - Provider: Antonia Salazar R.N.) Adult central parenteral nutrition (CPN) intravenous, at 41.7 mL/hr, Administer over 24 Hours, Continuous PN, Starting on Nani 08/25/23 at 2100, For 24 hours, Use a 0.22 micron filter., Indication: Small bowel obstruction (distal) 2127 (New Bag - Provider: Antonia Salazar R.N.) 113 (Stopped - Provider: Lupe Valdez R.N.) heparin (porcine) 100 Units/mL in NaCl 0.45% 250 mL infusion (CANCELED) 0-30 Units/kg/hr ? 91.2 kg Dosing weight (0-27.36 mL/hr), intravenous, Continuous, Starting on Tue08/22/23 at 0945, 25,000 Units in 250 mL, Intensity type: Low, Starting Dose (units/kg/hr): 12, Loading Dose: 0, Anti-Xa < 0.1: Adjust dose (Units/kg/hr) by: 4, Anti-Xa < 0.1: Repeat anti-Xa: 6 hours, Anti-Xa 0.1-0.19: Adjust Dose (Units/kg/hr) by: 2, Anti-Xa 0.1-0.19: Repeat anti-Xa: 6 hours, Anti-Xa 0.2-0.5: Adjust Dose (Units/kg/hr) by: 0, Anti-Xa 0.2-0.5: Repeat anti-Xa: 6 hours. If two consecutive therapeutic result, re-check next AM., Anti-Xa 0.51-0.6: Adjust Dose (Units/kg/hr) by: -1, Anti-Xa 0.51-0.6: Repeat anti-Xa: 6 hours after dose change, Anti-Xa 0.61-0.9: Hold Infusion: Stop infusion for 1 hour, Anti-Xa 0.61-0.9: Adjust Dose (Units/kg/hr) by: -2, Anti-Xa 0.61-0.9: Repeat anti-Xa: 6 hours after Heparin resumed, Anti-Xa > 1.5: Hold Infusion: Stop infusion for 2 hours, Anti-Xa > 1.5: Adjust Dose (Units/kg/hr): -4, Anti-Xa > 1.5: Repeat anti-Xa: Repeat antiXa: 6 hours after Heparin resumed 0611 (Rate/Dose Change - Provider: Brittni Howe R.N. - Comment: no change)0744 (Handoff - Provider: Brittni Howe R.N. - Comment: Varified by JAMEL Lester)1522 (Handoff - Provider: Mary Rosado R.N. - Comment: From Tayler MCCULLOUGH)1906 (Handoff - Provider: Mary Rosado R.N. - Comment: Fatuma MCCULLOUGH) 0415 (Rate/Dose Change - Provider: Fatuma See R.N.)0719 (Handoff - Provider: Tayler Forrest R.N. - Comment: from Fatuma See RN)1542 (Handoff - Provider: Tayler Forrest R.N. - Comment: verified by Antonia Salazar RN)2125 (New Bag - Provider: Antonia Salazar R.N.)2328 (Handoff - Provider: Edith Simental R.N. - Comment: w/ antonia MCCULLOUGH) 0407 (Rate/Dose Change - Provider: Edith Simental R.N.)0729 (Handoff - Provider: Lupe Valdez R.N. - Comment: Verified with JAMEL Sharma)1153 (Stopped - Provider: Lupe Valdez R.N.) Lactated Ringer's 1.5 mL/kg/hr ? 75 kg [place] weight (112.5 mL/hr, rounded to 113 mL/hr), intravenous, Continuous, Starting on Tue08/22/23 at 1030, Conditional Phase Pre-Gastrografin Administration. (Rate = 1.5 mL/kg/hr ideal body weight) Lactated Ringer's 0.75 mL/kg/hr ? 75 kg [place] weight (56.25 mL/hr, rounded to 56.3 mL/hr), intravenous, Continuous, Starting on Tue08/22/23 at 1100, Post-Gastrografin Administration (Rate=0.75 mL/kg/hr ideal body weight).Until patient able to tolerate oral intake greater than 500 mL over 24 hours. Then 20 mL/hr IV. NaCl 0.9 % irrigation solution 3,000 mL 3,000 mL, irrigation, Continuous, Starting on Tue08/19/23 at 1745, FOR BLADDER IRRIGATION ONLY, NOT FOR IV USE NaCl 0.9 % irrigation solution 3,000 mL 3,000 mL, irrigation, Continuous, Starting on Tue08/19/23 at 1745, FOR BLADDER IRRIGATION ONLY, NOT FOR IV USE PRN Medication Order 08/24/2023 08/25/2023 08/26/2023 alum-mag hydroxide-simeth 200-200-20 mg/5 mL suspension 30 mL (Maalox) 30 mL, oral, Every 6 hours PRN, indigestion, Starting on Tue08/23/23 at 1547 NaCl 0.9% infusion 1-999 mL/hr, intravenous, As needed, Between Consecutive Piggyback Medications, Starting on Tue08/23/23 at 1531, Infuse at the same rate as the piggyback until tubing clears or up to a volume of 20 mL. Select for IV medication administration when no maintenance IV available or when IV medications are not compatible with maintenance fluid. NaCl 0.9% infusion 1-999 mL/hr, intravenous, As needed, Post Medications (Hazardous/Low Fluid Volume), Starting on Tue08/23/23 at 1531, Infuse at the same rate as the medication until tubing cleared of medication, then discard. NaCl 0.9% infusion 20-500 mL/hr, intravenous, Once as needed, Between Units of Blood Products, Starting on Tue08/26/23 at 0611, For 1 dose, Infuse at the same rate as the blood infusion until tubing cleared. Nurse may reduce rate to 20 mL/hour or as otherwise directed until next blood infusion arrives then discontinue when infusion complete. NaCl 0.9% infusion 20-500 mL/hr, intravenous, Once as needed, Between Units of Blood Products, Starting on Tue08/26/23 at 0729, For 1 dose, Infuse at the same rate as the blood infusion until tubing cleared. Nurse may reduce rate to 20 mL/hour or as otherwise directed until next blood infusion arrives then discontinue when infusion complete. NaCl 0.9% infusion 20-500 mL/hr, intravenous, Once as needed, Between Units of Blood Products, Starting on Tue08/26/23 at 0849, For 1 dose, Infuse at the same rate as the blood infusion until tubing cleared. Nurse may reduce rate to 20 mL/hour or as otherwise directed until next blood infusion arrives then discontinue when infusion complete. naloxone injection 0.2 mg (NARCAN) 0.2 mg, intravenous, As needed, respiratory depression, Starting on Tue08/16/23 at 0612, For RASS Score -4 or less, respiratory rate of less than 8 breaths/min. Notify provider/service and rapid response team (if available at institution). ondansetron (PF) injection 4 mg (ZOFRAN) 4 mg, intravenous, Every 6 hours PRN, nausea, vomiting, Starting on Tue08/14/23 at 1014 oxyCODONE solution 2.5 mg (ROXICODONE)(Linked Group 1) 2.5 mg, oral, Every 4 hours PRN, moderate pain or score 4-6 of 10, Starting on Tue08/23/23 at 1547 oxyCODONE solution 5 mg (ROXICODONE)(Linked Group 1) 5 mg, oral, Every 4 hours PRN, severe pain or score 7-10 of 10, Starting on Tue08/23/23 at 1547 prochlorperazine injection 5 mg (COMPAZINE) 5 mg, intravenous, Every 6 hours PRN, nausea, vomiting, Starting on Tue08/19/23 at 0203 Linked Groups Order Group 1: oxyCODONE solution 2.5 mg (ROXICODONE)Jump to med 2.5 mg, oral, Every 4 hours PRN, moderate pain or score 4-6 of 10, Starting on Tue08/23/23 at 1547 Or oxyCODONE solution 5 mg (ROXICODONE)Jump to med 5 mg, oral, Every 4 hours PRN, severe pain or score 7-10 of 10, Starting on Tue08/23/23 at 1547 documented in this encounter Care Teams Tow Boat Captain Relationship Specialty Start Date End Date Elsewhere, Pcp PCP - General Internal Medicine 08/13/23 documented as of this encounter
--- OUTSIDE RECORDS SUMMARY | 2023-08-29 11:55 | XMS_ITS | Encounter Summary ---
Author Name Unknown Organization [facility] Address [address] [place] [address] Care Team Providers Care Cable Maintainer Name Role Phone Elsewhere, Pcp Primary Care Provider Unavailabl e Encounter Details Date Type Department Care Team (Late st Contact Info) Description 08/15/2023 8:30 AM CDT Anesthesia Event [facility] MAIN OR [address] [place] [address] Hayde Song M.D. [address] [place] [address] Anesthesia Record Procedure Summary Procedure Name Responsible [...] Drains, and Airways Type Details Placement Removal Wound 08/15/23; 0958; N; Incision; Pannus; Mid 08/15/23 0958 by Janina Coronado R.NJonah Bladder Irrigation 08/15/23; 1143; Dr. De Paz; Continuous; Three-way; 24 Fr; 30 mL (balloon filled with 10 ml water); Yes 08/15/23 1143 by Janina Coronado R.Mari. Peripheral IV Placement Date: 08/02; Existing LDA Placed by: Other hospital; Orientation: Left; Location: Antecubital; Removal Date: 08/15/23; Removal Time: 0908/13/23 0000 by Jose Haro, M.S.N., R.N. 08/15/23 0909 by Rae Gonzalez APRN, CRNA, DNAP Peripheral IV Placement Date: 08/02; Existing LDA Placed by: Other hospital; Orientation: Anterior, Lower, Right; Location: Forearm; Removal Date: 08/22/23; Removal Time: 07; Removal Reason: Leaking 08/13/23 0000 by Jose Haro, M.S.N., R.N. 08/22/23 0747 by Jenny Ferguson Bladder Irrigation 08/13/23; 1706; MJS [place]; Continuous; Three-way; 24 Fr; 30 mL; Yes; 08/15/23; 1029; Per protocol 08/13/23 1706 by Favio August 08/15/23 1029 by Janina Coronado R.N. ETT Placement Date: 10/02; Placement Time: 0840 [...] DNAP 08/15/23 1253 by Rae Gonzalez APRN, GAVIN, DNAP Peripheral IV Placement Date: 10/02; Placement Time: 0855; Catheter Size: 16 G; Orientation: Left; Location: Hand; Removal Date: 08/25/23; Removal Time: 1103; Removal Reason: Occluded 08/15/23 0855 by Rae Gonzalez APRN, GAVIN, DNAP 08/25/23 1103 by Nancy Lambert Arterial Line Placement Date: 10/02; Placemnt Time: 0951 (created via procedure documentation); Size: 20 G; Orientation: Left; Location: Brachial; Site Prep: Chlorhexidine (Preferred); Technique: Ultrasound guidance; Insertion Attempts: 3; Securement: Securement dressing, Securement device; Removal Date: 08/15/23; Removal Time: 1326; Removal Reason: Per protocol 08/15/23 0951 by Hayde Song M.D. 08/15/23 1326 by Bobby Green R.N. Closed/Suction Drain 08/15/23; 1215; Med ial; LLQ; Bulb; 15 Fr.; No longer in place 08/15/23 1215 by Janina Coronado R.N. 08/26/23 0000 by Lupe Valdez R.N. NG/OG Tube 08/15/23; 1234; Nasogastric; Right; 08/17/23; 1430 08/15/23 1234 by Rae Gonzalez APRN, GAVIN, DNAP 08/17/23 1430 by Jr Samuel, Terri. documented in this encounter Social History Tobacco Use Types Packs/Day Years Used Date Smoking Tobacco: Never Smokeless Tobacco: Never [facility] Utilities Answer Date Recorded In the past 12 months has e electric, gas, oil, or water company [...] your living situation today? I have a [facility] place to live 08/13/2023 Sex and Gender Information Value Date Recorded Sex Assigned at Not on file Gender Identity Not on file Sexual Orientation Not on file documented as of this encounter OR Notes * Anesthesia Postprocedure Evaluation - Nereida Liang M.D. - 08/15/2023 2:09 PM CDT Patient: Kalen Vega Procedure Summary Date: 08/15/23 Room / Location: [place] [id number] / [facility] in [place], [place] Anesthesia Start: 829 Anesthesia Stop: 8 [...] Anesthesia Procedure Notes - Rae Gonzalez APRN, CORRECTIONAL SUPERVISOR, DNAP - 08/15/2023 9:51 AM CDTAssociated Order(s): [...] ETT location: oral VL device: glide scope [place] scope blade size: 4 Tube size: 7.5 [...] & H&P Assessment Procedure Summary Date/Time: 08/15/23 0755 Procedure: Palliative EXPLORATORY LAPAROTOMY, CYSTOTOMY CLOSURE, RIGHT URETERAL STENT EXCHANGE, PROCEED INDICATED, possible multiple trips 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 Location: [address] [facility] / [facility] in [place], [place] Providers: Boubacar Brock M.D. Pertinent components [...] patient / legal guardian, or through an press helper; patient evaluated and approved for anesthesia / [...] CDT Procedure visit Department of Urology in [place], [place] [address] [place] [phone] Sima Venegas M.D. [address] [place] [id number] documented as of this encounter Procedures Procedure Name Priority Date/Time Associated Diagnosis Comments MC ANE INVASIVE CATH WITH ULTRASOUND Routine 08/15/2023 9:51 AM CDT LDA ANE ARTERIAL LINE INSERTION Routine 08/15/2023 9:51 AM CDT RI US GUIDE VASC ACCESS Routine 08/15/2023 9:51 AM CDT RI ARTL CATH/CNULA MONITOR PERC Routine 08/15/2023 9:51 AM CDT LDA ANE ENDOTRACHEAL AIRWAY Routine 08/15/2023 8:40 AM CDT documented in this encounter Results * RI ARTL CATH/CNULA MONITOR PERC, RI US GUIDE VASC ACCESS, LDA ANE ARTERIAL [...] 8:40 AM CDT) Narrative Rae Gonzalez APRN, CRNA DNAJay - 08/15/2023 8:40 AM CDT Rae Gonzalez [...] ETT location: oral VL device: glide scope [place] scope blade size: 4 Tube size: 7.5 [...] mg documented in this encounter Care Teams Cable Maintainer Relationship Specialty Start Date End Date Elsewhere, Pcp PCP - General Internal Medicine 08/13/23 documented as of this encounter
--- OUTSIDE RECORDS SUMMARY | 2023-08-29 11:55 | XMS_ITS | Encounter Summary ---
Author Name Unknown Organization [facility] Address [address] [place] [address] Care Team Providers Care River Captain Name Role Phone Elsewhere, Pcp Primary Care Provider Unavailabl e Encounter Details Date Type Department Care Team (Late st Contact Info) Description 08/23/2023 12:45 AM CDT Ancillary Procedure Department of Nursing Social History Tobacco Use Types Packs/Day Years Used Date Smoking Tobacco: Never Smokeless Tobacco: Never [facility] Utilities Answer Date Recorded In the past 12 months has [facility] electric, gas, oil, or water company threatened [...] your living situation today? I have a [facility] place to live 08/13/2023 Sex and Gender Information Value Date Recorded Sex Assigned at Not on file Gender Identity Not on file Sexual Orientation Not on file documented as of this encounter Plan of Treatment Upcoming Encounters Date Type Department Care Team (Late st Contact Info) Description 09/07/2023 11:00 AM CDT Procedure visit Department of Urology in [place], [place] [address] [place] [address] Sima Venegas M.D. [address] [place] [address] documented as of this encounter Procedures Procedure Name Priority Date/Time Associated Diagnosis Comments NURSING IMAGE EXAM Routine 08/23/2023 12 :44 AM CDT documented in this encounter Results * Buttock/Sacrum-Nursing Image Exam (08/23/2023 12:44 AM CDT) 08/23/2023 12:4 1 AM CDT Narrative [facility] - 08/23/2023 12:44 AM CDT This order has been created and auto-finalized to support the import of images acquired without order. The clinical documentation to support these images can be found on the encounter that produced images. Provider Not In System IMG NON RAD IMAGI NG PROCEDURES [facility] NA documented in this encounter Visit Diagnoses Not on filedocumented in this encounter Care Teams River Captain Relationship Specialty Start Date End Date Elsewhere, Pcp PCP - General Internal Medicine 08/13/23 documented as of this encounter
--- OUTSIDE RECORDS SUMMARY | 2023-08-29 11:56 | XMS_ITS | Encounter Summary ---
Author Name Unknown Organization [facility] Address [address] [place] [address] Care Team Providers Care Extension Service Agent Name Role Phone Elsewhere, Pcp Primary Care Provider Unavailabl e Encounter Details Date Type Department Care Team (Late st Contact Info) Description 08/15/2023 7:55 AM CDT - 08/15/2023 11:23 AM CDT Surgery RST ROMB MAIN OR [address] [place] [address] Boubacar Brock M.D. [address] [place] [address] Palliative EXPLORATORY LAPAROTOMY, CYSTOTOMY CLOSURE, RIGHT URETERAL STENT EXCHANGE Social History Tobacco Use Types Packs/Day Years Used Date Smoking Tobacco: Never Smokeless Tobacco: Never [facility] Utilities Answer Date Recorded In the past 12 months has [facility] [employer], gas, oil, or water [employer] threatened to shut off services in your [...] your living situation today? I have a [employer] place to live 08/13/2023 Sex and Gender [...] 08/13/2023 7:00 PM CDT Body Mass Index 28.52 08/25/2023 10:40 AM CDT documented in this encounter Discharge Summaries * Paula Hernandez M.D. - 08/26/2023 9:15 AM CDT DISCHARGE SUMMARY BRIEF OVERVIEW Hospital: [facility] Discharge Provider: Boubacar Brock M.D. Primary Team: [facility] Urology Surgery - Chief Helga Rojas Primary [...] APPLICATION WOUND VACUUM ABDOMEN INCISIONAL Boubacar Brock M.D.Wen, Lexiaochuan, M.D.Premo, Hayley, M.D.Botkin, Hannah, M.D. [facility] ROMB OR DISCHARGE DISPOSITION Home or Self Care [1] ACTIVE ISSUES REQUIRING FOLLOW UP OUTPATIENT FOLLOW UP Scheduled Appointments 08/26/2023 1:00 PM [facility] Radiology For appointment details refer to [...] he felt completely obstructed and presented to [place] [facility]. [place] Course Attempted Tabares insertion but bladder irrigation was unsuccessful on multiple attempts. Hung 1U pRBC's. Given some volume and transferred to [facility] ICU ICU Course Urology consulted and [...] CONSULT TO NUTRITION SUPPORT IP CONSULT TO PERFECT BINDER SETTER WOUND CARE CONDITION AT DISCHARGE stable Discharge [...] he felt completely obstructed and presented to [place] [facility]. [place] Course Attempted Tabares insertion but bladder irrigation was unsuccessful on multiple attempts. Hung 1U pRBC's. Given some volume and transferred to [facility] ICU ICU Course Urology consulted and [...] PM CDT You were discharged from the [facility] Urology Surgery - Chief A - Blue Service. Please identify this service name if you call with questions after hospitalization. * Attachments The following attachments cannot be sent through Care Everywhere. * Bacitracin (On the skin) (Chadian) * Cefdinir (By mouth) (Chadian) * Trospium (By mouth) (Chadian) documented in this encounter Medications at Time [...] encounter Progress Notes * Emeterio Buchanan P.T., Craig.P.T., GCS - 08/26/2023 4:27 PM CDT 08/26/23 1627 Reason Therapy Missed Reason Therapy Missed Receiving other care Attempted to see patient twice today. On 1st attempt patient was receiving blood transfusion and RNwas working on completing cares with him. On 2nd attempt patient was with another provider. * Chary Diamond M.A., O.T., [facility] - 08/26/2023 10:21 AM CDT Occupational Therapy [facility] Inpatient Treatment SUBJECTIVE Patient's Name: Kalen Vega Referring/Attending Provider: Boubacar Brock M.D. Reason for Referral: Occupational Therapy Evaluation and Treatment History of Present Illness: Kalen Vega is a 83 y.o. male who was admitted to [facility] in [place] on 08/13/2023 for Hematuria [R31.9]. Precautions Other Precautions: Abdominal, fall precautions, monitor tachycardia and hypertension Pain Assessment: Pain not reported during session. Subjective Comments: Agreeable to therapy session. Team Communication: The patient's status was discussed and coordination of care occurred with RN, Family/Caregiver, nurse tech Family/Caregiver Present: son and immoruum-qf-tab OBJECTIVE Vital Signs: Vitals not formally assessed during session. No concerns during chart review and the patient had nosigns or symptoms consistent with vital changes during therapy session. Outcome Measures: [facility] Inpatient Short Form: Putting on and taking [...] at or below 17 Clinicians answer the [facility] Inpatient Short Form based on observed patient [...] through pant leg first. - Adaptive Equipment: Farebox Repairer TOILETING - Assist Level: Maximal Assist - [...] (Edge of bed) - Assist Level: Modified [place] - Equipment: bed rail - Therapist Delivery: assessed, instructed, assisted - Adaptive Equipment: leg six sigma black belt engineer trialed ; however, patient able to move [...] extremity (stiff knee) first. Recommended adaptive equipment: Farebox Repairer. Toileting - Patient instructed on accurate positioning [...] maximal exertion Handouts provided: Bathroom Safety Equipment [id number], Techniques to Help You Save Energy [id number] Patient was left in bedside chair with [...] have 24/7 supervision from family if necessary. Recommended Adaptive [...] health care OBJECTIVE Patient is admitted in [address] -[address] ASSESSMENT / PLAN COMMUNITY OUTREACH SPECIALISTpatient accounts manager met with patient and son Kar to inform them of home health care acceptance for PT/OT. Patient's son Kar and [id number] will provide transportation at the time of discharge. PLAN Patient to discharge home with home health care. Home Medical Care - Admitted Since 08/13/2023 Service Provider Selected Services Address Phone Fax Patient [facility] [address] [facility] [address] -- Procedure Rn: Ghazal NURSING: - Complete documentation in the Discharge Navigator including Nursing Report Info and Facility/NextLevel of Care Info - Call report and arrange for the patient's first visit - Send After Visit Summary and required packet of dismissal information with patient, including advance directive. PRIMARY SERVICE: - Please provide a non-[place] home health order for: physical therapy and [...] be provided by family--patient's son Kar and lkoasrpv-ed-oxx. 3. tablet coater recommended reaching out to family, friends, and neighbors for assistance. 4. tablet coater provided information regarding the dismissal process. Damaris [...] #1 Hematuria Please page [facility] ([phone]) or [facility] ([phone]) Nutrition Support Service pager with questions. * Emeterio Buchanan PCarlos, D.P.T., GCS - 08/25/2023 9:35 AM CDT Physical Therapy Inpatient Treatment SUBJECTIVE Patient's Name: Kalen Vega Referring/Attending Provider: Boubacar Brock M.D. Reason for Referral: Physical Therapy Evaluate and Treat History of Present Illness: Kalen Vega is a 83 y.o. male who was admitted to [facility] in [place] on 08/13/2023 for Hematuria [R31.9] Precautions Other [...] throughout session; within normal ranges. Outcome Measures: [facility] Inpatient Short Form: [facility] Basic Mobility (V.2) How much [...] 3-5 steps with a railing?: A Little [facility] Basic Mobility (V.2) Raw Score: 18 [facility] Basic Mobility (V.2) Standardized Score: 41.05 Interpretation: Based on scoring guidelines using the raw score value: Those going to home had an average score at or above 18 Those going to facility had an average score at or below 17 Clinicians answer the [facility] Inpatient Short Form based on observed patient activity and/or clinical judgement (ie. patient can be scored without physically performing each activity) Therapeutic Interventions: SIT TO STAND x3: Assistance Level: Supervision static safe house fit with adult there which they usually [place] with a difference educated fully know who [...] Time (min): 30 min Naseem Buchanan P.T., D.P.T., GCS * Ivy Hernandez, O.T. - 08/25/2023 9:18 AM CDT Occupational Therapy [facility] Inpatient Treatment SUBJECTIVE Patient's Name: Kalen Vega Referring/Attending Provider: Boubacar Brock M.D. Reason for Referral: Occupational Therapy Evaluation and Treatment History of Present Illness: Kalen Vega is a 83 y.o. male who was admitted to [facility] in [place] on 08/13/2023 for Hematuria [R31.9]. Precautions Other Precautions: Abdominal, fall precautions, monitor tachycardia and hypertension Pain Assessment: Pain not reported during session. Subjective Comments: Agreeable to therapy session. Team Communication: The patient's status was discussed and coordination of care occurred with RN, PT OBJECTIVE Vital Signs: Vitals monitored throughout session; within normal ranges. Outcome Measures: [facility] Inpatient Short Form: Putting on and taking [...] at or below 17 Clinicians answer the [facility] Inpatient Short Form based on observed patient [...] including figure four technique. Recommended adaptive equipment: Farebox Repairer and Sock Aid. Toileting - Patient instructed [...] and modification tools as needed including leg six sigma black belt engineer and/or bed adjustments. Bathroom DME: - Educated [...] in place draining clear yellow urine I/O ([id number]): Fifty-five cc serosanguineous from the drain 1 [...] locallyfor CBI. He was subsequently transferred to [facility] 08/12 for difficulty irrigating his catheter [...] have him follow up with his local parts cleaner Comorbidities: --history of DVT status post IVC [...] tamsulosin, rosuvastatin Held Home Meds: None Consults: POWER, KESHIA Hernandez M.D. 08/25/2023 Please page the Urology Chief Service with questions or concerns. Patient seen and discussed with Dr. Venegas, chief urology resident superintendent plant protection. Pager during business hours: [phone] Pager after hours: [phone] * Emeterio Buchanan P.T., D.P.T., [facility] - 08/24/2023 10:46 AM CDT Physical Therapy Inpatient Treatment SUBJECTIVE Patient's Name: Kalen Vega Referring/Attending Provider: Boubacar Brock M.D. Reason for Referral: Physical Therapy Evaluate and Treat History of Present Illness: Kalen Vega is a 83 y.o. male who was admitted to [facility] on 08/13/2023 for Hematuria [R31.9] Precautions Other [...] %, and O2flow: Room air Outcome Measures: [facility] Inpatient Short Form: -[facility] Basic Mobility (V.2) How much help [...] 3-5 steps with a railing?: A Lot -[facility] Basic Mobility (V.2) Raw Score: 17 -[facility] Basic Mobility (V.2) Standardized Score: 39.67 Interpretation: Based on scoring guidelines using the raw score value: Those going to home had an average score at or above 18 Those going to facility had an average score at or below 17 Clinicians answer the -[facility] Inpatient Short Form based on [...] baseline. PT Goal #2: Patient will perform hej-ex-yxcgk transfer with modified independence and least restrictive [...] Buchanan P.T., D.P.T., GCS * Tayler Mckeon Pharm.D., R.Ph. - 08/24/2023 10:00 AM CDT Pharmacist [...] Total Kcal/day: 1370 based on 84 % Garcia-Hunter Non-standard additives: K 80 mEq Phos 30 mmol MAX chloride Thiamine 100 mg daily (D4) ASSESSMENT / PLAN CPN renewed per NSS recommendations; K increased to 80 mEq, phos increased to 30 mmol/day. BMP, mag, phos with AM labs 08/24 ordered Ceftriaxone 2 gm Q 24hr started 08/14--> cefdinir 300 mg PO BID on 08/21 for UTI. Needs LOT determined. Tayler Mckeon PharmDayday, R.Ph. * Jennifer Millard M.D. - 08/24/2023 [...] #1 Hematuria Please page [facility] ([phone]) or [facility] ([phone]) Nutrition Support Service pager with questions. * [...] catheter in place draining light smith I/O ([id number]): Forty-two cc serosanguineous from the drain 2.2 [...] locallyfor CBI. He was subsequently transferred to [facility] 08/12 for difficulty irrigating his catheter [...] have him follow up with his local parts cleaner Comorbidities: --history of DVT status post IVC [...] rosuvastatin Held Home Meds: None Consults: TPN, KESHIA Hernandez M.D. 08/24/2023 Please page the Urology Chief Service with questions or concerns. Patient seen and discussed with Dr. Venegas, chief urology resident superintendent plant protection. Pager during business hours: [phone] Pager after hours: [phone] * Deanne Mike L.G.STimi, M.S.W. - 08/23/2023 11:25 AM CDT SUBJECTIVE Social Work spoke with [facility]. They cannot provide half-way at this time. They can provide OT/PT [...] anticipated discharge date of 08/24/23-08/26/23. Referrals sent: [facility] [place] - [facility] (out of service area) [facility] - [facility] ASSESSMENT / PLAN ASSESSMENT Patient has robust family support including a son living with him. PLAN Patient desires home health care through [facility]. Social Work will continue to follow to provide support. Social Work will continue to assist with discharge needs. Shorty Sun, M.S.W. 08/23/23 * Jazmine Benítez R.N., C.W.C.N. - 08/23/2023 11:10 AM CDT [facility] Wound RN consulted to assess [...] stent and hematuria who is transferred from [place] ED with 3 days of hematuria and [...] Cyst? Date First Assessed/Time First Assessed: 08/23/23 005 Present on Original Admission: (c) Yes WoundApproximate Age at First Assessment: Unknown Wound Exact Age at First Assessment: (c) Primary WoundType: Other Moisture Associated Skin Damage ... Date Wound Image Taken 08/23/23 Pain Score 0 - none *Shape Irregular *Tunneling None *Signs of Infection None Unable to Measure Y *Wound Bed Closed;[employer];Red Tissue Exposed None Odor None *Exudate Amount [...] 30 minutes > 30 minutes Ongoing management Nursing;Wound/financial agent Partial head to toe skin assessment completed [...] nursing. They agree to the plan. The [facility] RN will sign-off. Please place a wound care consult for any new concerns. Electronically signed by: Jazmine Benítez R.N., [place] 08/23/23 11:10 AM CDT * Emeterio Buchanan P.T., D.P.T., GCS - 08/23/2023 11:02 AM CDT Physical Therapy Inpatient Treatment SUBJECTIVE Patient's Name: Kalen Vega Referring/Attending Provider: Boubacar Brock M.D. Reason for Referral: Physical Therapy Evaluate and Treat History of Present Illness: Kalen Vega is a 83 y.o. male who was admitted to [facility] in [place] on 08/13/2023 for Hematuria [R31.9] Precautions Other [...] and O2 flow: Room air Outcome Measures: AM-PAC Inpatient Short Form: AM-[facility] Basic Mobility (V.2) How much help [...] 3-5 steps with a railing?: A Lot [facility] Basic Mobility (V.2) Raw Score: 17 [facility] Basic Mobility (V.2) Standardized Score: 39.67 Interpretation: Based on scoring guidelines using the raw score value: Those going to home had an average score at or above 18 Those going to facility had an average score at or below 17 Clinicians answer the [facility] Inpatient Short Form based on observed patient [...] baseline. PT Goal #2: Patient will perform whc-ph-pbctq transfer with modified independence and least restrictive [...] Naseem Buchanan P.T., D.P.T., GCS * Demarco Salazar, Pharm.D., R.Ph., BCPS - 08/23/2023 10:19 AM CDT Pharmacist Progress [...] Total Kcal/day: 1370 based on 84 % Garcia-Hunter Non-standard additives: MAX chloride Thiamine 100 mg [...] #1 Hematuria Please page [facility] ([phone]) or [facility] ([phone]) Nutrition Support Service pager with questions. * Ivy Hernandez, O.T. - 08/23/2023 8:30 AM CDT Occupational Therapy [facility] Inpatient Treatment SUBJECTIVE Patient's Name: Kalen Vega Referring/Attending Provider: Boubacar Brock M.D. Reason for Referral: Occupational Therapy Evaluation and Treatment History of Present Illness: Kalen Vega is a 83 y.o. male who was admitted to [facility] in [place] on 08/13/2023 for Hematuria [R31.9]. Precautions Other Precautions: Abdominal, fall precautions, monitor tachycardia and hypertension Pain Assessment: Pain not reported during session. Subjective Comments: Agreeable to therapy session. Team Communication: The patient's status was discussed and coordination of care occurred with RN, PT OBJECTIVE Vital Signs: Vitals monitored throughout session; within normal ranges. Outcome Measures: [facility] Inpatient Short Form: Putting on and taking [...] at or below 17 Clinicians answer the [facility] Inpatient Short Form based on observed patient [...] catheter in place draining clear yellow I/O ([id number]): 73 cc serosanguineous from the drain Seven [...] locallyfor CBI. 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 [facility] Summary: Diet: NPO, TPN Activity: Ad kong DVT PPX: heparin drip GI PPX: Pantoprazole Bowel Regimen:N/A IVF: D5W with KCL 20 @100 mL/hr Abx/Microbiology: Ceftriaxone Pain Control: Tylenol, oxycodone 08/18. Scheduled trospium Home Meds Resumed: Metoprolol, tamsulosin, rosuvastatin Held Home Meds: None Consults: TPMari, KESHIA Hernandez M.D. 08/23/2023 Please page the Urology Chief Service with questions or concerns. Patient seen and discussed with Dr. Venegas, chief urology resident superintendent plant protection. Pager during business hours: [phone] Pager after hours: [phone] * Chary Diamond M.A., O.T., BCP - 08/22/2023 4:19 PM CDT 08/22/23 1619 Reason Therapy Missed Reason Therapy Missed Receiving [...] [facility] Social Work sent referral. OBJECTIVE Patient is anticipated to remain at [place] for 3-5 days. Referrals sent: [facility] ASSESSMENT / PLAN ASSESSMENT Patient has robust family support including a son living with him. PLAN Patient desires home health care through [facility]. Social Work will continue to follow to provide support. Social Work will continue to assist with discharge needs. Shorty Sun, M.S.W. 08/22/23 * Emeterio Buchanan P.T., D.P.T., [facility] - 08/22/2023 2:27 PM CDT Physical Therapy Inpatient Treatment SUBJECTIVE Patient's Name: Kalen Vega Referring/Attending Provider: Boubacar Brock M.D. Reason for Referral: Physical Therapy Evaluate and Treat History of Present Illness: Kalen Vega is a 83 y.o. male who was admitted to [facility] in [place] on 08/13/2023 for Hematuria [R31.9] Precautions Other [...] hypotension or respiratory distress. . Outcome Measures: [facility] Inpatient Short Form: [facility] Basic Mobility (V.2) How much [...] 3-5 steps with a railing?: A Lot -[facility] Basic Mobility (V.2) Raw Score: 17 -[facility] Basic Mobility (V.2) Standardized Score: 39.67 Interpretation: Based on scoring guidelines using the raw score value: Those going to home had an average score at or above 18 Those going to facility had an average score at or below 17 Clinicians answer the [facility] Inpatient Short Form based on observed patient [...] baseline. PT Goal #2: Patient will perform dhz-ee-ezdef transfer with modified independence and least restrictive [...] D.P.T., GCS * Demarco Salazar Pharm.D., R.Ph., [facility] - 08/22/2023 10:57 AM CDT Pharmacist Progress [...] Total Kcal/day: 1370 based on 84 % Garcia-Hunter Non-standard additives: MAX chloride Thiamine 100 mg [...] place draining light smith colored urine I/O ([id number]): CBI on slow drip 75 cc serosanguineous [...] locallyfor CBI. He was subsequently transferred to [facility] 08/12 for difficulty irrigating his catheter [...] have him follow up with his local parts cleaner Comorbidities: --history of DVT status post IVC [...] discussed with Dr. Venegas, chief urology resident superintendent plant protection. Pager during business hours: [phone] Pager after hours: [phone] * Qamar Jim, Pharm.D., R.Ph. - 08/21/2023 10:43 AM CDT [...] place draining clear smith colored urine I/O ([id number]): 1800 cc urine output 75 cc serosanguineous [...] locallyfor CBI. He was subsequently transferred to [facility] 08/12 for difficulty irrigating his catheter [...] have him follow up with his local parts cleaner Comorbidities: --history of DVT status post IVC [...] discussed with Dr. Venegas, chief urology resident superintendent plant protection. Pager during business hours: [phone] Pager after hours: [phone] * Lizette Harvey M.D. - 08/20/2023 8:08 [...] draining clear thin merlot colored urine I/O ([id number]): 240 cc p.o. intake 760 cc urine [...] locallyfor CBI. He was subsequently transferred to [facility] 08/12 for difficulty irrigating his catheter [...] needed as patient continuesrecovering from surgery --LE obtained 5/8 PM due to patient's sustained [...] have him follow up with his local parts cleaner Comorbidities: --history of DVT status post IVC [...] questions or concerns. Pager during business hours: [phone] Pager after hours: [phone] * Qamar Jim PharmJonahD., R.Ph. - 08/20/2023 7:46 AM CDT Images [...] in [employer]. Qamar Jim Pharm.D., R.Ph. * Lisa Seaman, O.T., [facility] - 08/19/2023 2:26 PM CDT Occupational Therapy [facility] Inpatient Treatment SUBJECTIVE Patient's Name: Kalen Vega Referring/Attending Provider: Boubacar Brock M.D. Reason for Referral: Occupational Therapy Evaluation and Treatment History of Present Illness: Kalen Vega is a 83 y.o. male who was admitted to [facility] in [place] on 08/13/2023 for Hematuria [R31.9]. Precautions Other Precautions: Abdominal, fall precautions, monitor tachycardia and hypertension Pain Assessment: Pain not reported during session. Subjective Comments: Patient greeted in chair and agreeable to therapy session. Team Communication: The patient's status was discussed and coordination of care occurred with RN OBJECTIVE Vital Signs: Vitals monitored throughout session; within normal ranges. Outcome Measures: AM-PAC Inpatient Short Form: Putting [...] at or below 17 Clinicians answer the [facility] Inpatient Short Form based on observed patient [...] Time (min): 17 min Lisa Seaman O.T., MOT * Breanna Harris D.T.R. - 08/19/2023 12:00 PM CDT Clinical Nutrition: Initial Assessment RECOMMENDATIONS REQUIRING MD/PROVIDER ORDER No changes at this time; continue current nutrition orders For questions about patient's nutritional care please contact pager [phone] on weekdays or [phone] on weekends/holidays. NUTRITION ASSESSMENT: Mr. Vega is [...] care everywhere) ESTIMATED NEEDS: Total Calorie Needs: 5017-5234 calories/day Method to Estimate Energy Needs: kcal/kg [...] Diet Progression/NPO Status, Weight Status * Deanne Mkie L.G.S.W., M.S.W. - 08/19/2023 11:23 AM CDT [...] Shorty Sun, M.S.W. 08/20/23 * Scott Pina P.T., D.P.T. - 08/19/2023 11:07 AM CDT Physical Therapy Inpatient Treatment SUBJECTIVE Patient's Name: Klaen Vega Referring/Attending Provider: Boubacar Brock M.D. Reason for Referral: Physical Therapy Evaluate and Treat History of Present Illness: Kalen Vega is a 83 y.o. male who was admitted to [facility] in [place] on 08/13/2023 for Hematuria [R31.9] Precautions Other [...] 3-5 steps with a railing?: A Little -[facility] Basic Mobility (V.2) Raw Score: 18 -[facility] Basic Mobility (V.2) Standardized Score: 41.05 Interpretation: Based on scoring guidelines using the raw score value: Those going to home had an average score at or above 18 Those going to facility had an average score at or below 17 Clinicians answer the -[facility] Inpatient Short Form based on [...] Ongoing PT Goal #2: Patient will perform nja-sa-rqmas transfer with modified independence and least restrictive [...] min Scott Pina P.T., D.P.T. * Chance Cassidy Pharm.D., R.Ph. - 08/19/2023 9:28 AM CDT [...] Monitoring by aPTT guidance document in AskMayoExpert. Pharm. LilyD., R.Ph. Addendum at 14:08: aPTT Results (Past [...] in place draining clear pink urine I/O (4920-3360): 370 p.o. intake 1 L urine output [...] locallyfor I. He was subsequently transferred to [facility] 08/12 for difficulty irrigating his catheter [...] 2.5 mg BID eliquis initiated 08/15 per [facility] med curbside recs --transition from eliquis ppx [...] have him follow up with his local parts cleaner Comorbidities: --history of DVT status post IVC [...] questions or concerns. Pager during business hours: [phone] Pager after hours: [phone] * Lisa Seaman, O.T., MOT - 08/18/2023 11:15 AM CDT Occupational Therapy [facility] Inpatient Treatment SUBJECTIVE Patient's Name: Kalen Vega Referring/Attending Provider: Boubacar Brock M.D. Reason for Referral: Occupational Therapy Evaluation and Treatment History of Present Illness: Kalen Vega is a 83 y.o. male who was admitted to [facility] in [place] on 08/13/2023 for Hematuria [R31.9]. Precautions Other [...] pressure: 168/97 - nurse notified Outcome Measures: [facility] Inpatient Short Form: Putting on and taking [...] at or below 17 Clinicians answer the [facility] Inpatient Short Form based on observed patient [...] doffing over it last. Recommended adaptive equipment: Farebox Repairer and Sock Aid. Patient was left in bedside chair, with nursing/JACQUARD LOOM WEAVER at end of session with call light [...] Time (min): 26 min Lisa Seaman O.T., JODY * Scott Pina PCarlos, D.P.T. - 08/18/2023 8:18 AM CDT Physical Therapy Inpatient Treatment SUBJECTIVE Patient's Name: Kalen Vega Referring/Attending Provider: Boubacar Brock M.D. Reason for Referral: Physical Therapy Evaluate and Treat History of Present Illness: Kalen Vega is a 83 y.o. male who was admitted to [facility] in [place] on 08/13/2023 for Hematuria [R31.9] Precautions Other [...] vital signs with primary service. Outcome Measures: -[facility] Inpatient Short Form: AM-[facility] Basic Mobility (V.2) How much help [...] 3-5 steps with a railing?: A Little AM-[facility] Basic Mobility (V.2) Raw Score: 18 AM-[facility] Basic Mobility (V.2) Standardized Score: 41.05 Interpretation: Based on scoring guidelines using the raw score value: Those going to home had an average score at or above 18 Those going to facility had an average score at or below 17 Clinicians answer the -[facility] Inpatient Short Form based on [...] following coordination of care occurred with the product design specialist/Caregiver Present: No Patient was left in bedside [...] Progressing PT Goal #2: Patient will perform ngf-jd-ngahq transfer with modified independence and least restrictive [...] min Scott Pina P.T., D.P.T. * Aziza Cortez Pharm.D., R.Ph. - 08/18/2023 7:59 AM CDT Pharmacist [...] infusion per aPTT for apixaban admin, last 5/8 AM. aPTT 61 this morning. GI-no bowel regimen, takes none at home, not currently receiving opioids ASSESSMENT / PLAN Heparin infusion reduced to 13 units/kg/hr, recheck aPTT in 6 hours per protocol. Vasc med consulted Cards recs resume clopidogrel when able Med profile reviewed. Aziza Cortez PharmDayday, R.Ph. Afternoon aPTT = 64, reduced rate [...] in place draining clear pink urine I/O ([id number]): 1.2 L p.o. intake 1 L urine [...] locallyfor CBI. He was subsequently transferred to [facility] 08/12 for difficulty irrigating his catheter [...] 2.5 mg BID eliquis initiated 08/15 per [facility] rec --transition from eliquis ppx to heparin drip [...] diet later today follow up vascular medicine recs Hospital Summary: Diet: currently limited clears Activity: Ad kong DVT PPX: heparin drip GI PPX: Pantoprazole Bowel Regimen:N/A IVF: none Abx/Microbiology: Ceftriaxone Pain Control: Tylenol, oxycodone 08/18. Scheduled trospium Home Meds Resumed: Metoprolol, tamsulosin, rosuvastatin Held Home Meds: None Consults: None Paula Hernandez M.D. 08/18/2023 6:02 AM CDT Please page the Urology Chief Service with questions or concerns. Pager during business hours: [phone] Pager after hours: [phone] * Tayler Greenwood M.D., M.Ed. - 08/17/2023 [...] recent open bladder surgery. Tayler Greenwood MD, MEd * Alia Ruelas PharmJonahDJonah, R.Ph., BCPS - 08/17/2023 6:08 PM CDT [...] the patient follow up with his primary parts cleaner at discharge we will which we will [...] secondary to radiation proctitis requires frequent transfusions. [facility]ed to floor 08/15/23 PMH: Metastatic prostate cancer, [...] Lactated Ringer's Lactated Ringer's * Lisa Seaman OMarlon., [facility] - 08/17/2023 10:47 AM CDT Occupational Therapy [facility] Inpatient Treatment SUBJECTIVE Patient's Name: Kalen Vega Referring/Attending Provider: Boubacar Brock M.D. Reason for Referral: Occupational Therapy Evaluation and Treatment History of Present Illness: Kalen Vega is a 83 y.o. male who was admitted to [facility] in [place] on 08/13/2023 for Hematuria [R31.9]. Precautions Other Precautions: abdominal; fall risk; watch HR Pain Assessment: Pain not reported during session. Subjective Comments: Patient greeted in bed and agreeable to therapy session. Team Communication: The patient's status was discussed and coordination of care occurred with RN OBJECTIVE Vital Signs: Vitals taken during session: Pulse rate: 102-128 bpm Outcome Measures: [facility] Inpatient Short Form: Putting on and taking [...] at or below 17 Clinicians answer the [facility] Inpatient Short Form based on observed patient [...] min Total Treatment Time (min): 24 min Tara Madden.Cooper, MOT * Paula Hernandez M.D. - 08/17/2023 [...] in place draining clear pink urine I/O ([id number]): NG tube 200 cc Two hundred sixty-five [...] locallyfor CBI. He was subsequently transferred to [facility] 08/12 for difficulty irrigating his catheter [...] held since 08/11) -discussed with vascular Medicine curbssylvia 08/15 regarding ongoing anticoagulation/antiplatelet. Theyfelt he no [...] questions or concerns. Pager during business hours: [phone] Pager after hours: [phone] * Audi De Luna P.TJonah, D.P.T. - 08/16/2023 3:05 PM CDT 08/16/23 5325 Reason Therapy Missed Reason Therapy Missed Receiving [...] in place draining clear pink urine I/O ([id number]): NG tube 200 cc Two hundred sixty-five [...] locallyfor CBI. He was subsequently transferred to [facility] 08/12 for difficulty irrigating his catheter [...] questions or concerns. Pager during business hours: [phone] Pager after hours: [phone] * Paula Hernandez M.D. - 08/15/2023 9:09 AM CDT PROGRESS NOTE: No events. AFVSS. Pain controlled. No flatus. No further emesis overnight. Abdomen more distended than yesterday but remained soft, tender to deep palpation only, no rebound. Twenty-four Swiss Alcock three-way catheter remains off CBI, draining [...] for CBI. He was subsequently transferred to [facility] 08/12 for difficulty irrigating his catheter [...] risks associated with surgery and anesthesia including DE, stroke, and VTE were also discussed. Finally, [...] above was discussed with Dr. Brock, urology claims consultant on-call who is in agreement with the lisa outlined. Electronically signed by: Paula Hernandez M.D. 08/15/23 9:09 AM CDT Urology chief * Irvin Franco, Pharm.D., R.Ph. - 08/14/2023 12:16 PM CDT [...] Family to bring his home enzalutamide from [place] Irvin Franco Pharm.D., R.Ph. * Jakob De Paz M.D. - 08/14/2023 11:34 AM CDT PROGRESS NOTE: No events. AFVSS. Pain controlled. No flatus. Nauseous and had 2 episodes of emesis. Abdomen more distended than yesterday but remained soft, tender to deep palpation only, no rebound. Twenty-four Swiss Alcock three-way catheter remains off CBI, draining [...] for CBI. He was subsequently transferred to [facility] 08/12 for difficulty irrigating his catheter [...] above was discussed with Dr. Brock, urology claims consultant on-call who is in agreement with [...] Patient discussed with Dr. Sylvester. Page CCM3 [id number] Carlos Alberto Henson M.D. PGY-1 CCM 3 [...] care as per CCM3. * Irvin Franco, PharmJonahD., R.Ph. - 08/13/2023 3:54 PM CDT Pharmacist [...] who have asked we place a 24 Swiss 3-way urinary catheter pending evaluation. We will [...] stent and hematuria who is transferred from [facility] ED with 3 days of hematuria [...] him to present to local hospital in [place]. OSH Course: His hemoglobin was in the [...] Continuous New Bag, 3,000 mL at 08/12 171 NaCl 0.9 % irrigation solution 3,000 mL [...] Insecurity: No Food Insecurity (02/16/2022) Received from [facility], [facility] Food Insecurity Worried About Running Out of Food in the Last Year: 1 Transportation Needs: No Transportation Needs (02/16/2022) [facility], [facility] Transportation Needs Lack of Transportation (Medical): 1 Housing Stability: Low Risk (02/16/2022) Received from [facility], [facility] Housing Stability Unable to Pay for [...] Dr. Sylvester and Dr. Rodriguez. Page CCM3 [id number] Carlos Alberto Henson M.D. PGY-1 CCM 3 [...] As expected PRIMARY PROCEDURALIST FAY Cerna MD [phone] ASSISTANTS none COMPLICATIONS None. DRAINS None. IMPLANTS None. ANESTHESIA Local Anesthesia. FLUIDS none ESTIMATED BLOOD LOSS <5ml CURRENT MEDICATIONS No Medication Changes FOLLOW-UP LETTER None. MAY RETURN TO WORK Not applicable PATIENT INSTRUCTIONS No return appointment * Miko Shah R.N. - 08/20/2023 8:40 PM CDTAssociated Order(s): Place peripherally inserted central catheter (PICC) Images from the original note were not included. Place peripherally inserted central catheter (PICC) Performed by: Miko Shah R.N. Authorized by: Lizette Harvey M.D. Care team [...] peripheral vein targets. Ultrasound used for assessment: Seesearch Provider contacted (include name): Uro Surg Time [...] 14 -- AST U/L 25 -- Radiology: @[id number]@ Swallow Assessment: No data to display ASSESSMENT / PLAN #1 Hematuria ASSESSMENT Currently we are asked to visit with Mr. Vega for consideration of parenteral nutrition. Nutrition Needs: Height: 180 cm Admission Weight: 91.2 kg (08/13/2023) Current Weight: 90.2 kg BMI (Calculated): 27.8 kg/m?? Total Calorie Needs: 0261-0532 calories/day Method to Estimate Energy Needs: Garcia-Hunter ( ) Weight Used for Equation Calculations: [...] on electrolytes Please call NSS pager at [phone] at [facility] or [phone] at [facility] with any additional questions. * Gilbert Johnson M.D. - 08/20/2023 8:05 AM CDTAssociated Order(s): Nutrition support service consult (hospital) SUBJECTIVE Nutrition support service consult (hospital) Referring Provider: Lizette Harvey M.D. REASON FOR [...] from last 7 days Lab Units 08/20/23 0319 08/14/23 0318 08/13/23 1727 SODIUM P mmol/L -- [...] values in this interval not displayed. Radiology: @[email or web address]@ Swallow Assessment: No data to display ASSESSMENT / PLAN #1 Hematuria ASSESSMENT Currently we are asked to visit with Mr. Vega for consideration of parenteral nutrition. Nutrition Needs: Height: 180 cm Admission Weight: 91.2 kg (08/13/2023) Current Weight: 90.2 kg BMI (Calculated): 27.8 kg/m?? Total Calorie Needs: 2914-4600 calories/day Method to Estimate Energy Needs: kcal/kg [...] on electrolytes Please call NSS pager at [phone] at [facility] or [phone] at [facility] with any additional questions. BILLING/CODING Total visit [...] stent along with other stents and apparently parts cleaner in the past I recommended indefinite dual [...] documented in the history of present illness. @[facility] OBJECTIVE Current Facility-Administered Medications: acetaminophen tablet 650 [...] 0806 Lactated Ringer's, 20 mL/hr, intravenous, Continuous, Pascual, Frieda A, METALLURGIST PROCESS, COMMERCIAL BAKER HELPER, Last Rate: 20 mL/hr at 08/15/23 1459, [...] 40 mg (CRESTOR), 40 mg, oral, Daily, Paual Hernandez M.D., 40 mg at 08/18/23 0812 [...] CAD with history of 6 coronary stents 2016 with a advice for definite dual antiplatelet therapy #5 Status post open bladder repair of cystotomy and right ureteral stent RECOMMENDATIONS: 1. From a vascular standpoint I would hold Plavix until safe from a bleeding standpoint and then reconsider resuming Plavix as a outpatient. (I personally think we should rethink cardiology decision regarding long-term Plavix but he can discuss this with his parts cleaner at home. We need to balance transfusion needs for continued bleedingand risk of recurrent DE if not on Plavix-coronary stents were 6 [...] questionsor concerns Izzy Schuster., B.Ch. * Matthieu Reynoso Nohemy, SPT - 08/17/2023 3:09 PM CDT Physical [...] 83 y.o. male who was admitted to [facility] in [place] on 08/13/2023 for Hematuria [R31.9]. Relevant Medical History: Kalen Vega is a 83 y.o. 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 [...] heels well perfused and intact. Outcome Measures: -[facility] Inpatient Short Form: -[facility] Basic Mobility (V.2) How much help [...] 3-5 steps with a railing?: A Lot [facility] Basic Mobility (V.2) Raw Score: 17 [facility] Basic Mobility (V.2) Standardized Score: 39.67 Interpretation: Based on scoring guidelines using the raw score value: Those going to home had an average score at or above 18 Those going to facility had an average score at or below 17 Clinicians answer the [facility] Inpatient Short Form based on observed patient [...] following coordination of care occurred with the product design specialist/Caregiver Present: SonFavio Patient was left in bedside [...] 83 y.o. male who was admitted to [facility] in [place] on 08/13/2023 for Hematuria with cystotomy and [...] Min assist for mobility. Required assist for wec-fq-ciifw for force generation and is generally standby [...] Ongoing PT Goal #2: Patient will perform otp-ey-lclgw transfer with modified independence and least restrictive [...] - 08/16/2023 10:01 AM CDT Occupational Therapy [facility] Inpatient Evaluation/Treatment SUBJECTIVE Patient's Name: Kalen Vega Referring/Attending Provider: Boubacar Brock M.D. Reason for Referral: Occupational Therapy Evaluation and Treatment PERTINENT MEDICAL / SURGICAL HISTORY: Kaeln Vega has no past medical history on file. Kalen Vega has no past surgical history on file. History of Present Illness: Kalen Vega is a 83 y.o. male who was admitted to [facility] in [place] on 08/13/2023 for Hematuria [R31.9]. Relevant Medical [...] with RN, PT Family/Caregiver Present: Son and onfreqid-ax-whr. Home Living and Equipment: Lives with: Spouse/Significant [...] walker, Single point cane Adaptive Equipment Owned: Farebox Repairer, Long Handled Shoe Horn Other DME Owned: Regular flat bed Prior Level of Function and Mobility: Basic Activities of Daily Living: Independent Instrumental Activities of Daily Living: Required Assistance: Laundry son assists with laundry and cooking Functional Mobility: Independent Driving: Yes Occupational Role: Retired Leisure Interests: watch movies, plays [place] train, meets friends for breakfast. Patient/Caregiver Goals: [...] Wears glasses all the time Outcome Measures: [facility] Inpatient Short Form: Putting on and taking [...] at or below 17 Clinicians answer the [facility] Inpatient Short Form based on observed patient [...] Total Treatment Time (min): 43 min Lisa Saeman O.T., MOT * Sivakumar Parham L.G.S.W., M.S.W. - [...] all are a great support. 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 Patient expressed understanding and was agreeable to [...] engaged in conversation with his family when psychosocial rehabilitation counselor entered the room. He was engaged in [...] locally at approximately 3:00 a.m. a 22 Swiss three-way catheter was placed and CBI wasinitiated. Unfortunately he clotted off the catheter multiple times despite manual irrigations, started to develop hypotension and tachycardia and [facility] He relays the above history [...] non-distended, non-peritonitic Extremities: No edema : 22 Swiss three-way Tabares catheter draining a minimal amount [...] urinary retention Given his non draining 22 Swiss three-way catheter the Urology techs and I subsequently exchanged this for a 24 Swiss three-way Alcock in the usual sterile fashion. [...] to follow [place] [phone] with questions or concerns Sixto Cain M.D. [...] for upper GI prophylaxis. * Miko Shah RNarendra - 08/20/2023 8:37 PM CDT No Viable [...] peripheral vein targets. Ultrasound used for assessment: [employer] Provider contacted (include name): Uro Surg [...] or other central line. * Jose Haro M.SJonahNJonah, RJonahNJonah - 08/14/2023 12:23 PM CDT Patient Transfer Note Patient transferred to: [facility] Room: [facility] Accompanied by: JAMEL Garcia Report called? YES [...] signs? YES * Sixto Teague, R.R.T., L.R.T., FIRE OFFICER-ACCS - 08/14/2023 7:00 AM CDT Patient is [...] the last 24hours. Sixto Teague R.R.T., L.R.T., FIRE OFFICER-ACCS 08/14/23 7:00 AM CDT * Radha Crespo R.R.T., L.R.T. [...] Bladder Spontaneous Post-op Diagnosis Rupture Bladder Spontaneous Dairy Feed Mixing Operator A bookkeeping assistant actively participated and was necessary for [...] the supine flexed position. His existing 24 Swiss three-way Tabares catheter was noted to be [...] additional tissue for additional coverage. A 24 Swiss three-way catheter was placed with 15 cc in the balloon. This irrigated to light clear pink. A 15 Swiss YARELI drain wasplaced into the pelvis exiting left lower quadrant. The fascia was closed with interrupted and lstxwh-qv-gnhsi 0 PDS. Fat was approximated using 3-0 [...] stent and hematuria who is transferred from [place] ED with 3 days of hematuria & [...] RN, CPN, CCDS, CCS, CRC Clinical Documentation Labor Training Manager Query created by: ELMER Barker, RN, CPN, [...] he felt completely obstructed and presented to [place] ED. [place] Course Attempted Tabares insertion but bladder irrigation was unsuccessful on multiple attempts. Hung 1U pRBC's. Given some volume and transferred to [facility] ICU ICU Course Urology consulted and [...] CDT Procedure visit Department of Urology in [place], [place] [address] [place] [address] Sima Venegas M.D. [address] [place] [address] Pending Results Name Type Priority Associated Diagnoses [...] removal of right tunneled PICC line. NR Authorizing Provider Result Abdifatah Hernandez M.D. IMG IR PROCEDURES * Transfuse Red Blood Cells : (08/26/2023 11:00 AM CDT) Paula Hernandez M.D. BLOOD TRANSFUSION OR DERABLES * Transfuse Red Blood Cells : , 1 Units (08/26/2023 11:00 AM CDT) Paula Hernandez M.D. BLOOD TRANSFUSION OR DERABLES * Type and Screen (with Reflex Antibody ID) (08/26/2023 6:50 AM CDT) [facility] ABORh O Pos Not applicable 08/26/2023 7:16 AM CDT STRM Antibody Screen Negative Negative 08/26/2023 7:29 AM CDT STRM Type & Screen Expiration 08/29/2023 23:59 08/26/2023 7:16 AM CDT STRM Testing Location [place] DEFAULT 08/26/2023 6:57 AM CDT STRM Blood (Blood, Venous) 08/26/2023 6:50 AM CDT 08/26/2023 6:57 AM CDT Paula Hernandez M.D. LAB BLOOD BANK TEST ORDERABLES [facility] [address] [place] [address], [facility] STRM [facility] [address] [place] [address] * (ABNORMAL) CBC without Differential (08/26/2023 3:20 [...] CDT Corin Ring M.D. LAB BLOOD ADD-ON [facility] [address] [place] [address], [facility] DTL [facility] [address] [place] [address] * Magnesium (08/26/2023 3:20 AM CDT) Magnesium, S 2.1 1.7 - 2.3 mg/dL 08/26/2023 4:04 AM CDT DTL Blood (Blood, Venous) 08/26/2023 3:20 AM CDT 08/26/2023 3:50 AM CDT Boubacar Brock M.D. LAB BLOOD ADD-ON [facility] [address] [place] [address], [facility] [address] [place] [address] * (ABNORMAL) Renal Function Panel (08/26/2023 3:20 [...] M.D. LAB BLOOD ADD-ON Performing Organization Address City/[facility] Co de Phone Number [facility] [address] [place], [place] [phone] [place] [address] [facility] [address] [place] [address] * Heparin Anti-Xa Assay (08/26/2023 3:20 AM CDT) Heparin Anti-Xa, P 0.26 IU/mL 2023 3:58 [...] BLOOD NON ADD -ON Performing Organization Address [facility] Co de Phone Number [facility] [address] [place] [address], [facility] [address] [place] [address] * (ABNORMAL) CBC without Differential (08/25/2023 3:24 AM CDT) Pathologist [facility] Hemoglobin 8.3(L) 13.2 - 16.6 g/dL 08/25/2023 [...] CDT Corin Ring M.D. LAB BLOOD ADD-ON [address] [address], [facility] [address] [address] * (ABNORMAL) Renal Function Panel (08/25/2023 3:24 AM CDT) Pathologist [facility] Potassium, S 4.1 3.6 - 5.2 mmol/L [...] M.D. LAB BLOOD ADD-ON Performing Organization Address City/[facility]/ZIP Co de Phone Number [facility] [address] [place] [address], [facility] 200 [place] [address] * Magnesium (08/25/2023 3:24 AM CDT) Magnesium, S 2.2 1.7 - 2.3 mg/dL 08/25/2023 4:36 AM CDT DTL Blood (Blood, Venous) 08/25/2023 3:24 AM CDT 08/25/2023 4:19 AM CDT Boubacar Brock M.D. LAB BLOOD ADD-ON [facility] [address] [place] [address], [facility] DTL [facility] [address] [place] [id number] * Heparin Anti-Xa Assay (08/25/2023 3:24 AM CDT) [facility] Heparin Anti-Xa, P 0.31 IU/mL 2023 4:09 [...] Boubacar Brock M.D. LAB BLOOD NON ADD-ON [address] [address], [facility] [place] [address] * (ABNORMAL) CBC without Differential (08/24/2023 5:28 AM CDT) [facility] Hemoglobin 8.1(L) 13.2 - 16.6 g/dL 08/24/2023 [...] M.D. LAB BLOOD ADD-ON Performing Organization Address City/[facility] Co de Phone Number [facility] [address] [place] [address] * Magnesium (08/24/2023 5:28 AM CDT) Magnesium, S 2.3 1.7 - 2.3 mg/dL 08/24/2023 6:19 AM CDT DTL Blood (Blood, Venous) 08/24/2023 5:28 AM CDT 08/24/2023 6:00 AM CDT Boubacar Brock M.D. LAB BLOOD ADD-ON Performing Organization Address [facility] Co de Phone Number [facility] [address] [place] [address] * (ABNORMAL) Renal Function Panel (08/24/2023 5:28 [...] CDT Boubacar Brock M.D. LAB BLOOD ADD-ON [address] [address], [facility] [address] [place] [address] * Heparin Anti-Xa Assay (08/24/2023 5:28 AM [...] LAB BLOOD NON ADD-ON Performing Organization Address City/[facility]/ZIP Co de Phone Number [facility] [address] [place] [address] * (ABNORMAL) Potassium (08/23/2023 9:58 PM CDT) Potassium, S 3.5(L) 3.6 - 5.2 mmol/L 08/23/2023 10:45 PM CDT DT Blood (Blood, Venous) 08/23/2023 9:58 PM CDT 08/23/2023 10:30 PM CDT Boubacar Brock M.D. LAB BLOOD ADD-ON Performing Organization Address [facility] [place] [facility] Co de Phone Number [facility] [address] [place] [address] * (ABNORMAL) Phosphorus Inorganic (08/23/2023 9:58 PM CDT) Phosphorus (Inorganic), S 2.1(L) 2.5 - 4.5 mg/dL 08/23/2023 10:45 PM CDT DT Blood (Blood, Venous) 08/23/2023 9:58 PM CDT 08/23/2023 10:30 PM CDT Paula Hernandez M.D. LAB BLOOD ADD-ON Performing Organization Address City/[facility]/ZIP Co de Phone Number [facility] [address] [place] [address] [place] [address] * Heparin Anti-Xa Assay (08/23/2023 11:37 AM CDT) [facility] Heparin Anti-Xa, P 0.51 IU/mL 2023 12:42 PM CDT DTL Comment: UFH therapeutic range: [...] Boubacar Brock M.D. LAB BLOOD NON ADD-ON [facility] [address] [place] [address], [facility] 200 [place] [address] * (ABNORMAL) CBC without Differential (08/23/2023 3:42 AM CDT) [facility] Hemoglobin 8.3(L) 13.2 - 16.6 g/dL 08/23/2023 [...] M.D. LAB BLOOD ADD-ON Performing Organization Address [facility] [place] [facility] Co de Phone Number [facility] [address] [facility] 200 [place] [address] * Triglycerides (08/23/2023 3:42 AM CDT) Triglycerides 106 mg/dL 08/23/2023 4:50 AM CDT DTL Comment: ----REFERENCE VALUE---- Normal: <150 mg/dL Borderline High: 150-199 mg/dL High: 200-499 mg/dL Very High: > or =500 mg/dL Fasting (8 HR or more) Yes 08/23/2023 4:19 AM CDT DTL Blood (Blood, Venous) 08/23/2023 3:42 AM CDT 08/23/2023 4:19 AM CDT Boubacar Brock M.D. LAB BLOOD ADD-ON [facility] [address] [facility] [address] [place] [address] * Magnesium (08/23/2023 3:42 AM CDT) Magnesium, S 2.2 1.7 - 2.3 mg/dL 08/23/2023 4:50 AM CDT DTL Blood (Blood, Venous) 08/23/2023 3:42 AM CDT 08/23/2023 4:19 AM CDT Boubacar Brock M.D. LAB BLOOD ADD-ON [facility] [address] [place] [address], [place] DTL [facility] [address] [place] [address] * (ABNORMAL) Renal Function Panel (08/23/2023 3:42 AM CDT) Pathologist [facility] Potassium, S 3.1(L) 3.6 - 5.2 mmol/L [...] M.D. LAB BLOOD ADD-ON Performing Organization Address City/[facility]/ZIP Co de Phone Number [facility] [address] [place] [address], [facility] 200 [place] [address] * Heparin Anti-Xa Assay (08/23/2023 3:41 AM CDT) Pathologist [facility] Heparin Anti-Xa, P 0.51 IU/mL 2023 4:26 AM CDT DT Comment: UFH therapeutic range: ?? 0.30-0.70 IU/mL [...] LAB BLOOD NON ADD-ON Performing Organization Address City/[facility]/ZIP Co de Phone Number [facility] [address] [place] [address], [facility] [address] [place] [address] * Glucose, POCT (08/22/2023 11:38 PM CDT) Pathologist [facility] Glucose, POCT, B 117 70 - 140 mg/dL 08/23/2023 1:06 AM CDT PCLX Site Capillary 08/23/2023 1:06 AM CDT PCLX Last Intake NPO 08/23/2023 1:06 AM CDT PCLX Blood 08/22/2023 11:3 8 PM CDT 08/23/2023 1:06 AM CDT Unknown Provider LAB POCT ORDERABLES- MANUAL Performing Organization Address City/[facility]/ZIP Co de Phone Number POC [facility] [address] [place] [address], [facility] PCLX [facility] [address] [place] [address] * Heparin Anti-Xa Assay (08/22/2023 10:14 PM [...] LAB BLOOD NON ADD-ON Performing Organization Address City/[facility]/ZIP Co de Phone Number [facility] [address] [place] [address], [facility] DTL [facility] [address] [place] [address] * CT Abdomen Pelvis without IV Contrast [...] Paula Hernandez M.D. IMG CT PROCEDURES * Heparin Anti-Xa Assay (08/22/2023 [...] Boubacar Brock M.D. LAB BLOOD NON ADD-ON [facility] [address] [place] [address], [facility]TH[facility] [address] [place] [address] * Creatinine, Body Fluid (08/22/2023 3:30 PM [...] transport rates. All other fluids refer to www.[employer].com for further interpretive information. This test has been modified from the air director's instructions. Its performance characteristics were determined by [facility] in a manner consistent with CLIA requirements. This test has not been cleared or approved by the U.S. Food and Drug Administration. Fluid Type, Creatinine Fluid, Abdomen 08/22/2023 3:52 PM CDT DTL Fluid (Abdomen) 08/22/2023 3 :30 PM CDT 08/22/2023 6:36 PM CDT Corin Ring M.D. LAB BODY FLUIDS AND STOOLS ORDERABLES [facility] [address] [place] [address], [facility] [address] [address] * Transfuse Red Blood Cells : (08/22/2023 [...] of a right IJ vein single-lumen 4 Swiss tunneled PowerPICC ready for immediate use. NR [...] advanced into the IVC and a 4 Swiss dilator advanced over the wire and attached to a one-way stopcock. A suitable exit site in the right anterior chest was anesthetized and a small incision made. A 4 Swiss single-lumen PowerPICC was then tunneled from the [...] Wireadvanced into the IVC and a 4 Swiss dilator advanced over the wire andattached to a one-way stopcock. A suitable exit site in the right anteriorchest was anesthetized and a small incision made. A 4 Swiss single-lumen PowerPICC was then tunneled fromthe skin [...] of a right IJ vein single-lumen 4 Swiss tunneled PowerPICCready for immediate use. NR Kimi Vieira M.D., M.S. IMG KESHIA LAWSON * (ABNORMAL) CBC without Differential (08/22/2023 3:27 [...] CDT Latisha Whitehead M.D. LAB BLOOD ADD-ON [facility] [address] [place] [address], [facility] STMA [facility] 200 [place] [address] * Type and Screen (with Reflex Antibody ID) (08/22/2023 2:55 AM CDT) Pathologist [facility] ABORh O Pos Not applicable 08/22/2023 3:25 AM CDT STRM Antibody Screen Negative Negative 08/22/2023 3:38 AM CDT STRM Type & Screen Expiration 08/25/2023 23:59 08/22/2023 3:25 AM CDT STRM Testing Location Marcio DEFAULT 08/22/2023 3:07 AM CDT STRM Blood (Blood, Venous) 08/22/2023 2:55 AM CDT 08/22/2023 3:07 AM CDT Latisha Whitehead M.D. LAB BLOOD BANK T EST ORDERABLES Performing Organization Address City/[facility]/ZIP Co de Phone Number [facility] [address] [place] [address], [facility] [address] [place] [address] * (ABNORMAL) Comprehensive Metabolic Panel (08/22/2023 2:40 AM CDT) [facility] Potassium, S 3.2(L) 3.6 - 5.2 [...] M.D. LAB BLOOD ADD-ON Performing Organization Address [facility] Co de Phone Number [facility] [address] [place], [place] [address] [place] [address] * Heparin Anti-Xa Assay (08/22/2023 2:40 AM CDT) [facility] Heparin Anti-Xa, P 0.47 IU/mL 2023 3:28 AM CDT DT Comment: UFH therapeutic range: ?? 0.30-0.70 IU/mL [...] BLOOD NON AD D-ON Performing Organization Address [facility] Co de Phone Number [facility] [address] [place] [address], [facility] 200 [place] [address] * (ABNORMAL) APTT (Activated Partial Thromboplastin Time) (08/22/2023 2:40 AM CDT) Activated Partial Thrombopl Time, P 64(H) 25 - 37 sec 08/22/2023 3:12 AM CDT [facility] Blood (Blood, Venous) 08/22/2023 2:40 AM CDT 08/22/2023 3:01 AM CDT Latisha Whitehead M.D. LAB BLOOD ADD-ON Performing Organization Address [facility] Co de Phone Number [facility] [address] [place] [address], [facility] 200 [place] [address] * Triglycerides (08/21/2023 7:32 AM CDT) Triglycerides 98 mg/dL 08/21/2023 9:03 AM CDT DT Comment: ----REFERENCE VALUE---- Normal: <150 mg/dL Borderline High: 150-199 mg/dL High: 200-499 mg/dL Very High: > or =500 mg/dL Fasting (8 HR or more) Unknown 08/21/2023 8:38 AM CDT DT Blood (Blood, Venous) 08/21/2023 7:32 AM CDT 08/21/2023 8:38 AM CDT Lizette Harvey M.D. LAB BLOOD ADD-O N Performing Organization Address [facility] Co de Phone Number [facility] [address] [place] [address], [facility] [address] [place] [address] * Phosphorus Inorganic (08/21/2023 7:32 AM CDT) Phosphorus (Inorganic), S 2.6 2.5 - 4.5 mg/dL 08/21/2023 9:03 AM CDT DT Blood (Blood, Venous) 08/21/2023 7:32 AM CDT 08/21/2023 8:38 AM CDT Lizette Harvey M.D. LAB BLOOD ADD-O N Performing Organization Address City/[facility]/ZIP Co de Phone Number [facility] [address] [place] [address] * Magnesium (08/21/2023 7:32 AM CDT) Magnesium, S 2.3 1.7 - 2.3 mg/dL 08/21/2023 9:03 AM CDT DTL Blood (Blood, Venous) 08/21/2023 7:32 AM CDT 08/21/2023 8:38 AM CDT Lizette Harvey M.D. LAB BLOOD ADD-O N Performing Organization Address [facility] Co de Phone Number [facility] [address] [place] [address] * (ABNORMAL) Basic Metabolic Panel (08/21/2023 7:32 [...] Lizette Harvey M.D. LAB BLOOD ADD-O N [facility] [address] [place], [place] [address] [address] [place] [address] * (ABNORMAL) CBC without Differential (08/21/2023 7:32 AM CDT) Hemoglobin 8.0(L) 13.2 - 16.6 g/dL 08/21/2023 [...] LAB BLOOD ADD-O N Performing Organization Address [facility] Co de Phone Number [facility] [address] [place] [address], [facility] 200 [place] [address] * Heparin Anti-Xa Assay (08/21/2023 7:32 AM CDT) Heparin Anti-Xa, P 0.49 IU/mL 2023 8:31 AM CDT DT Comment: UFH therapeutic range: ?? 0.30-0.70 IU/mL [...] 7:32 AM CDT 08/21/2023 8:06 AM CDT Narrative Authorizing Provider Result Abdifatah Brock M.D. LAB BLOOD NON ADD-ON Performing Organization Address [facility] Co de Phone Number [facility] [address] [place] [address], [facility] [address] [place] [address] * (ABNORMAL) APTT (Activated Partial Thromboplastin Time) (08/21/2023 7:32 AM CDT) Activated Partial Thrombopl Time, P 49(H) 25 - 37 sec 08/21/2023 8:31 AM CDT DT Blood (Blood, Venous) 08/21/2023 7:32 AM CDT 08/21/2023 8:06 AM CDT Narrative Authorizing Provider Result Abdifatah Brock M.D. LAB BLOOD ADD-ON [facility] [address] [place] [address], [facility] DTL [facility] [address] [place] [address] * Place peripherally inserted central catheter (PICC) [...] ?? Lizette Harvey M.D. PROCEDURE/MINOR SURGICAL ORDERABLES Performing Organization Address [facility] de Phone Number MMODAL NA * DX Abdomen Portable Anterior [...] the atrophic right kidney. Lizette Harvey M.D. [facility] PROCEDUR ES * (ABNORMAL) Basic Metabolic Panel (08/20/2023 3:19 AM CDT) Potassium, S 3.7 3.6 - 5.2 mmol/L [...] CDT Paula Hernandez M.D. LAB BLOOD ADD-ON [address] [address], [facility] [place] [address] * (ABNORMAL) CBC without Differential (08/20/2023 3:19 AM CDT) Hemoglobin 8.9(L) 13.2 - 16.6 g/dL 08/20/2023 [...] M.D. LAB BLOOD ADD-ON Performing Organization Address City/[facility]/ZIP Co de Phone Number [facility] [address] [place] [address], [facility] [address] [place] [address] * (ABNORMAL) APTT (Activated Partial Thromboplastin Time) (08/20/2023 3:19 AM CDT) Activated Partial Thrombopl Time, P 52(H) 25 - 37 sec 08/20/2023 4:33 AM CDT DTL Blood (Blood, Venous) 08/20/2023 3:19 AM CDT 08/20/2023 4:10 AM CDT Boubacar Brock M.D. LAB BLOOD ADD-ON Performing Organization Address [facility] Co de Phone Number [facility] [address] [place] [address], [facility] [address] [place] [address] * (ABNORMAL) APTT (Activated Partial Thromboplastin Time) (08/19/2023 10:57 AM CDT) Activated Partial Thrombopl Time, P 54(H) 25 - 37 sec 08/19/2023 11:44 AM CDT DTL Blood (Blood, Venous) 08/19/2023 10:57 AM CDT 08/19/2023 11:26 AM CDT Boubacar Brock M.D. LAB BLOOD ADD-ON [facility] [address] [place] [address], [facility] [address] [place] [address] * (ABNORMAL) APTT (Activated Partial Thromboplastin Time) (08/19/2023 4:51 AM CDT) Pathologist [facility] Activated Partial Thrombopl Time, P 59(H) 25 - 37 sec 08/19/2023 5:53 AM CDT DTL Blood (Blood, Venous) 08/19/2023 4:51 AM CDT 08/19/2023 5:36 AM CDT Boubacar Brock M.D. LAB BLOOD ADD-ON [facility] [address] [place] [address], [facility] [address] [place] [address] * (ABNORMAL) APTT (Activated Partial Thromboplastin Time) (08/18/2023 10:03 PM CDT) [facility] Activated Partial Thrombopl Time, P 63(H) 25 - 37 sec 08/18/2023 10:41 PM CDT DT Blood (Blood, Venous) 08/18/2023 10:03 PM CDT 08/18/2023 10:19 PM CDT Boubacar Brock M.D. LAB BLOOD ADD-ON [facility] [address] [place], [place] [address] [place] [address] 200 [place] [address] * (ABNORMAL) APTT (Activated Partial Thromboplastin Time) (08/18/2023 2:50 PM CDT) Pathologist [facility] Activated Partial Thrombopl Time, P 64(H) 25 - 37 sec 08/18/2023 3:25 PM CDT DTL Blood (Blood, Venous) 08/18/2023 2:50 PM CDT 08/18/2023 3:07 PM CDT Boubacar Brock M.D. LAB BLOOD ADD-ON Performing Organization Address City/[facility]/ZIP Co de Phone Number [facility] [address] [place] [address] * (ABNORMAL) APTT (Activated Partial Thromboplastin Time) (08/18/2023 6:42 AM CDT) Activated Partial Thrombopl Time, P 61(H) 25 - 37 sec 08/18/2023 7:28 AM CDT DTL Blood (Blood, Venous) 08/18/2023 6:42 AM CDT 08/18/2023 7:04 AM CDT Boubacar Brock M.D. LAB BLOOD ADD-ON Performing Organization Address City/[facility]/ZIP Co de Phone Number [facility] [address] [place] [address] * (ABNORMAL) APTT (Activated Partial Thromboplastin Time) (08/17/2023 11:04 PM CDT) Activated Partial Thrombopl Time, P 40(H) 25 - 37 sec 08/17/2023 11:46 PM CDT DTL Blood (Blood, Venous) 08/17/2023 11:04 PM CDT 08/17/2023 11:31 PM CDT Boubacar Brock M.D. LAB BLOOD ADD-ON [facility] [address] [place] [address] * US Lower Extremity Veins Bilateral (08/17/2023 [...] and management can be found on the [employer] site. Link [email or web address] Findings discussed with ??Tayler Greenwood, ?? ([id number]) on 08/17/2023 7:11 PM. Procedure Note Jj [...] can be found on theAskMayoExpert site. [email or web address] Findings discussed with Tayler Greenwood MD ([id number]) on 08/17/2023 7:11 PM. IMPRESSION: 1. 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 2. No acute left-sided DVT. Corin CHOUDHARY US PROCEDURES * APTT (Activated Partial Thromboplastin Time) (08/17/2023 4:56 PM CDT) Activated Partial Thrombopl Time, P 29 25 - 37 sec 08/17/2023 5:10 PM CDT STMA Blood (Blood, Venous) 08/17/2023 4:56 PM CDT 08/17/2023 5:00 PM CDT Paula Hernandez M.D. LAB BLOOD ADD-ON Performing Organization Address [facility] Co de Phone Number [facility] [address] [place] [address], [facility] [address] [place] [address] * ECG 12 Lead (08/16/2023 9:43 PM CDT) Ventricular Rate ECG/Min 134 BPM MUSE MS Interval 136 ms MUSE QRSD Interval 76 ms MUSE QT Interval 298 ms MUSE QTC Interval 445 ms MUSE P Ponce 29 degrees MUSE R Ponce -6 degrees MUSE T Wave Ponce 21 degrees MUSE 08/16/2023 9:43 PM CDT [...] Azar M.D. ECG ORDERABLES Performing Organization Address [facility] Co de Phone Number MUSE NA * [...] CDT Geneva Azar M.D. LAB BLOOD ADD-ON [facility] [address] [facility] [address] [place] [address] * (ABNORMAL) Basic Metabolic Panel (08/16/2023 9:40 PM CDT) [facility] Potassium, S 3.9 3.6 - 5.2 [...] CDT Geneva Azar M.D. LAB BLOOD ADD-ON [facility] [address] [place] [address], [facility] [address] [place] [address] * Transfuse Red Blood Cells : (08/16/2023 12:04 PM CDT) Corin Ring M.D. BLOOD TRANSFUSION OR DERABLES * Transfuse Red Blood Cells : , 1 Units (08/16/2023 12:04 PM CDT) Corin Ring M.D. BLOOD TRANSFUSION OR DERABLES * (ABNORMAL) Basic Metabolic Panel (08/16/2023 3:10 AM CDT) [facility] Potassium, S 4.2 3.6 - 5.2 mmol/L [...] CDT Paula Hernandez M.D. LAB BLOOD ADD-ON [address] [address], [facility] [place] [address] * (ABNORMAL) CBC without Differential (08/16/2023 3:10 [...] CDT Paula Hernandez M.D. LAB BLOOD ADD-ON [facility] [address] [place] [address], [facility] DTL [facility] [address] [place] [address] * (ABNORMAL) CBC with Differential, Blood (08/15/2023 3:58 PM CDT) [facility] Hemoglobin 9.0(L) 13.2 - 16.6 g/dL 08/15/2023 [...] Carlos Alberto Henson M.D. LAB BLOOD ADD-ON [facility] [address] [place] [address], [facility] DTL [facility] [address] [place] [address] [facility] [address] [place] [address] * DX Abdomen 1 View (08/15/2023 1:19 [...] 6 AM CDT 08/15/2023 12:03 PM CDT Kiera Carron METALLURGIST PROCESS, COMMERCIAL BAKER HELPER, DNAP LAB BLOO D NON ADD-ON [facility] [address] [place] [address] * Lactate, B - Intra-op (08/15/2023 11:56 AM CDT) Lactate, B 1.1 0.5 - 2.2 mmol/L 08/15/2023 12:06 PM CDT STMA Blood (Blood, Venous) 08/15/2023 11:56 AM CDT 08/15/2023 12:03 PM CDT Hayde Song M.D. LAB BLOOD NON ADD-O N Performing Organization Address City/[facility]/ZIP Co de Phone Number [facility] [address] [place], [place] [address] [place] [address] 200 [place] [address] * (ABNORMAL) Glucose, Whole Blood (08/15/2023 11:56 AM CDT) Glucose 144(H) 70 - 140 mg/dL 08/15/2023 12:06 PM CDT [facility] Blood (Blood, Arterial Line) 08/15/2023 11:56 AM CDT 08/15/2023 12:03 PM CDT Hayde Song M.D. LAB BLOOD ADD-ON [facility] [address] [place], [place] [address] [place] [address] 200 [place] [address] * Potassium, Blood (08/15/2023 11:56 AM CDT) Potassium, B 4.3 3.6 - 5.2 mmol/L 08/15/2023 12:07 PM CDT STMA Blood (Blood, Arterial Line) 08/15/2023 11:56 AM CDT 08/15/2023 12:03 PM CDT Hayde Song M.D. LAB BLOOD NON ADD-O N [facility] [address] [place] [address], [facility] 200 [place] [address] * Sodium, B (08/15/2023 11:56 AM CDT) Sodium, B 135 135 - 145 mmol/L 08/15/2023 12:06 PM CDT STMA Blood (Blood, Arterial Line) 08/15/2023 11:56 AM CDT 08/15/2023 12:03 PM CDT Hayde Song M.D. LAB BLOOD NON ADD-O N Performing Organization Address City/[facility]/ZIP Co de Phone Number [facility] [address] [place] [address], [facility] 200 [place] [address] * (ABNORMAL) Calcium, Ionized (08/15/2023 11:56 AM CDT) Calcium, Ionized, B 4.53(L) 4.65 - 5.30 mg/dL 08/15/2023 12:07 PM CDT STMA Blood (Blood, Arterial Line) 08/15/2023 11:56 AM CDT 08/15/2023 12:03 PM CDT Hayde Song M.D. LAB BLOOD NON ADD-O N [facility] [address] [place] [address], [facility] [address] [place] [address] * (ABNORMAL) Blood Gas with Coox, Arterial [...] Song M.D. LAB BLOOD NON ADD-O N [facility] [address] [place] [address], [facility] [address] [place] [address] * [place] Fluoro Less Than 1 Hour [...] CDT 08/15/2023 10:28 AM CDT Rae Gonzalez METALLURGIST PROCESS, COMMERCIAL BAKER HELPER, DNAP LAB BLOO D NON ADD-ON Performing Organization Address City/[facility]/ZIP Co de Phone Number [facility] [address] [place] [address] * Lactate, B - Intra-op (08/15/2023 10:28 AM CDT) Lactate, B 1.1 0.5 - 2.2 mmol/L 08/15/2023 10:30 AM CDT STMA Blood (Blood, Venous) 08/15/2023 10:28 AM CDT 08/15/2023 10:28 AM CDT Hayde Song M.D. LAB BLOOD NON ADD-O N Performing Organization Address City/[facility]/ZIP Co de Phone Number [facility] [address] 200 [place] [address] * Glucose, Whole Blood (08/15/2023 10:28 AM CDT) Glucose 134 70 - 140 mg/dL 08/15/2023 10:30 AM CDT STMA Blood (Blood, Arterial Line) 08/15/2023 10:28 AM CDT 08/15/2023 10:28 AM CDT Hayde Song M.D. LAB BLOOD ADD-ON [facility] [address] [place], [place] [id number] [place] [address] 200 [place] [address] * Potassium, Blood (08/15/2023 10:28 AM CDT) Potassium, B 4.1 3.6 - 5.2 mmol/L 08/15/2023 10:31 AM CDT STMA Blood (Blood, Arterial Line) 08/15/2023 10:28 AM CDT 08/15/2023 10:28 AM CDT Hayde Song M.D. LAB BLOOD NON ADD-O N Performing Organization Address City/[facility]/ZIP Co de Phone Number [facility] [address] [place], [place] [id number] [place] [address] 200 [place] [address] * Sodium, B (08/15/2023 10:28 AM CDT) Sodium, B 135 135 - 145 mmol/L 08/15/2023 10:30 AM CDT STMA Blood (Blood, Arterial Line) 08/15/2023 10:28 AM CDT 08/15/2023 10:28 AM CDT Hayde Song M.D. LAB BLOOD NON ADD-O N [facility] [address] [place], [place] [phone] [place] [address] 200 [place] [address] * (ABNORMAL) Calcium, Ionized (08/15/2023 10:28 AM CDT) Calcium, Ionized, B 4.25(L) 4.65 - 5.30 mg/dL 08/15/2023 10:31 AM CDT STMA Blood (Blood, Arterial Line) 08/15/2023 10:28 AM CDT 08/15/2023 10:28 AM CDT Hayde Song M.D. LAB BLOOD NON ADD-O N Performing Organization Address City/[facility]/ZIP Co de Phone Number [facility] [address] [place] [address], [facility] STMA [facility] [address] [place] [address] * (ABNORMAL) Blood Gas with Coox, Arterial [...] Song M.D. LAB BLOOD NON ADD-O N [facility] [address] [place], [place] [id number] [place] [address] STMA [facility] 200 [place] [address] * Bacteria / Yomaira Culture, Blood #2 (08/15/2023 3:33 AM CDT) [facility] Bacteria/Leyla da Culture, Blood No growth after 5 days of incubation. 08/20/2023 6:02 AM CDT DTL Blood (Blood, Peripheral Draw) 08/15/2023 3:33 AM CDT 08/15/2023 5:58 AM CDT Comment:Specimen Source Site : Blood Narrative [facility] - 08/20/2023 6:02 AM CDT Received Bactec aerobic and Bactec anaerobic bottles Carlos Alberto Henson M.D. LAB MICROBIOLOGY - [facility] ORDERABLES [facility] [address] [place], [place] [phone] [place] [address] DTL [facility] [address] [place] [address] * (ABNORMAL) Basic Metabolic Panel (08/15/2023 3:31 AM CDT) [facility] Potassium, S 4.0 3.6 - 5.2 mmol/L [...] M.D. LAB BLOOD ADD-ON Performing Organization Address City/[facility] Co de Phone Number [address] [place] [address] * Bacteria / Yomaira Culture, Blood #1 (08/15/2023 3:31 AM CDT) Pathologist [facility] Bacteria/Leyla da Culture, Blood No growth after 5 days of incubation. 08/20/2023 6:02 AM CDT DTL Blood (Blood, Peripheral Draw) 08/15/2023 3:31 AM CDT 08/15/2023 5:59 AM CDT Comment:Specimen Source Site : Blood Carlos Alberto Henson M.D. LAB MICROBIOLOGY - G ENERAL ORDERABLES Performing Organization Address [facility]/ZIP Co de Phone Number [facility] [address] [place] [address] * (ABNORMAL) CBC with Differential, Blood (08/15/2023 3:30 AM CDT) Pathologist [facility] Hemoglobin 9.5(L) 13.2 - 16.6 g/dL 08/15/2023 [...] Carlos Alberto Henson M.D. LAB BLOOD ADD-ON [facility] [address] [place] [address], [facility] DTL [facility] [address] [place] [address] [facility] [address] [place] [address] * (ABNORMAL) CBC with Differential, Blood (08/14/2023 8:08 PM CDT) [facility] Hemoglobin 9.8(L) 13.2 - 16.6 g/dL 08/14/2023 [...] - 6.45 x10(9)/L 08/14/2023 8:14 PM CDT [facility] Lymphocytes 0.30(L) 0.95 - 3.07 x10(9)/L 08/14/2023 8:14 PM CDT STMA Monocytes 0.56 0.26 - 0.81 x10(9)/L 08/14/2023 8:14 PM CDT STMA Eosinophils <0.03 0.03 - 0.48 x10(9)/L 08/14/2023 8:14 PM CDT [facility] Basophils <0.03 0.01 - 0.08 x10(9)/L 08/14/2023 8:14 PM CDT [facility] Blood (Blood, Venous) 08/14/2023 8:08 PM CDT 08/14/2023 8:12 PM CDT Carlos Alberto Henson M.D. LAB BLOOD ADD-ON [facility] [address] [place] [address], [facility] [address] [place] [address] [facility] [address] [place] [address] * Transfuse Red Blood Cells : , [...] - 6.45 x10(9)/L 08/14/2023 3:23 AM CDT [facility] Lymphocytes 0.36(L) 0.95 - 3.07 x10(9)/L 08/14/2023 3:23 AM CDT [facility] Monocytes 0.98(H) 0.26 - 0.81 x10(9)/L 08/14/2023 3:23 AM CDT [facility] Eosinophils <0.03 0.03 - 0.48 x10(9)/L 08/14/2023 3:23 AM CDT [facility] Basophils <0.03 0.01 - 0.08 x10(9)/L 08/14/2023 3:23 AM CDT ST[facility] Blood (Blood, Venous) 08/14/2023 3:18 AM CDT 08/14/2023 3:21 AM CDT Carlos Alberto Henson M.D. LAB BLOOD ADD-ON [facility] [address] [place] [address], [facility] STMA [facility] [address] [place] [address] [facility] [address] [place] [address] * (ABNORMAL) Basic Metabolic Panel (08/14/2023 3:18 AM CDT) Pathologist [facility] Potassium, S 5.4(H) 3.6 - 5.2 mmol/L [...] M.D. LAB BLOOD ADD-ON Performing Organization Address City/[facility] Co de Phone Number [facility] [address] [place] [address], [facility] DTL [facility] [address] [place] [address] * Type and Screen (with Reflex Antibody ID) (08/13/2023 7:35 PM CDT) Pathologist [facility] ABORh O Pos Not applicable 08/13/2023 7:58 PM CDT STRM Antibody Screen Negative Negative 08/13/2023 8:13 PM CDT STRM Type & Screen Expiration 08/16/2023 23:59 08/13/2023 7:58 PM CDT STRM Testing Location Marcio DEFAULT 08/13/2023 7:39 PM CDT STRM Blood (Blood, Venous) 08/13/2023 7:35 PM CDT 08/13/2023 7:39 PM CDT Carlos Alberto Henson M.D. LAB BLOOD BANK TEST ORDERABLES Performing Organization Address [facility] Co de Phone Number [facility] [address] [place], [place] [address] STRM [facility] [address] [place] [address] * (ABNORMAL) Bacteria / Yomaira Culture, Blood #1 (08/13/2023 7:35 PM CDT) Pathologist [facility] Bacteria/Cand jessica Culture, Blood ESCHERICHIA COLI Growth after 11 Hours (A) 08/16/2023 11:17 AM CDT DTL Comment: 3 of 3 Bottles, Susceptibilities performed on another specimen [id number] Blood (Blood, Peripheral Draw) 08/13/2023 7:35 PM CDT 08/13/2023 8:15 PM CDT Comment:Specimen Source Site : Blood Carlos Alberto Henson M.D. LAB MICROBIOLOGY - G ENERAL ORDERABLES Performing Organization Address City/[facility] Co de Phone Number [facility] [address] [place] [address], [place] DTL [facility] [address] [place] [address] * ECG 12 Lead (08/13/2023 7:02 PM CDT) Ventricular Rate ECG/Min 128 BPM MUSE MS Interval 138 ms MUSE QRSD Interval 64 ms MUSE QT Interval 304 ms MUSE QTC Interval 443 ms MUSE P Ponce 45 degrees MUSE R Ponce 34 degrees MUSE T Wave Ponce 46 degrees MUSE 08/13/2023 7:02 PM CDT 08/13/2023 7:13 PM CDT Impressions MUSE - 08/13/2023 7:13 PM CDT Sinus tachycardia Otherwise normal ECG No previous ECGs available Reviewed by BETTY Walton Narrative Procedure Note Lucas Lee M.D. - 08/13/2023 IMPRESSION: Sinus tachycardia Otherwise normal ECG No previous ECGs available Reviewed by BETTY Walton Toby Wright ECG ORDERABLES Performing Organization Address [facility] Co de Phone Number MUSE NA * CT Cystogram without IV [...] CDT Comment:Specimen Source Site : Blood Narrative [facility] - 08/16/2023 11:17 AM CDT Received Bactec [...] Alberto Henson M.D. LAB MICROBIOLOGY - [facility] ORDERABLES [facility] [address] [place] [address], [facility] [address] [place] [address] * Magnesium (08/13/2023 5:27 PM CDT) Magnesium, S 1.9 1.7 - 2.3 mg/dL 08/13/2023 6:12 PM CDT DTL Blood (Blood, Venous) 08/13/2023 5:27 PM CDT 08/13/2023 5:58 PM CDT Carlos Alberto Henson M.D. LAB BLOOD ADD-ON [facility] [address] [place] [address], [facility] [address] [place] [address] * (ABNORMAL) Hepatic Function Panel (08/13/2023 5:27 [...] Carlos Alberto Henson M.D. LAB BLOOD ADD-ON [facility] [address] [place] [address], [facility] DTL [facility] [address] [place] [address] * (ABNORMAL) Basic Metabolic Panel (08/13/2023 5:27 PM CDT) Pathologist [facility] Potassium, P 5.5(H) 3.6 - 5.2 mmol/L [...] Carlos Alberto Henson M.D. LAB BLOOD ADD-ON [facility] [address] [place] [address], [facility] STMA [facility] [address] [place] [address] * Prothrombin Time (PT) (08/13/2023 5:27 PM CDT) [facility] Prothrombin Time, P 12.4 9.4 - 12.5 sec 08/13/2023 5:38 PM CDT STMA INR 1.1 0.9 - 1.1 08/13/2023 5:38 PM CDT STMA Comment: ----ADDITIONAL INFORMATION---- Standard intensity warfarin therapeutic range: 2.0 to 3.0 ?? High intensity warfarin therapeutic range: 2.5 to 3.5 Blood (Blood, Venous) 08/13/2023 5:27 PM CDT 08/13/2023 5:31 PM CDT Carlos Alberto Henson M.D. [place] [address], [facility] [address] [place] [address] * (ABNORMAL) CBC with Differential, Blood (08/13/2023 5:27 PM CDT) [facility] Hemoglobin 10.0(L) 13.2 - 16.6 g/dL 08/13/2023 [...] Carlos Alberto Henson M.D. LAB BLOOD ADD-ON [facility] [address] [place] [address], [facility] STMA [facility] [address] [place] [address] * (ABNORMAL) Dipstick, Urine (08/13/2023 5:07 PM CDT) Pathologist [facility] Hemoglobin, QL, U Large(A) Negative 08/13/2023 6:33 [...] M.D. LAB URINE ORDERABLES Performing Organization Address City/[facility]/ZIP Co de Phone Number [facility] [address] 200 [place] [address] * Osmolality, Urine (08/13/2023 5:07 PM CDT) Osmolality, U 351 150 - 1150 mOsm/kg 08/13/2023 7:46 PM CDT DTL Urine 08/13/2023 5:07 PM CDT 08/13/2023 5:45 PM CDT Carlos Alberto Henson M.D. LAB URINE ORDERABLES Performing Organization Address [facility] Co de Phone Number [facility] [address] 200 [place] [address] * (ABNORMAL) Microscopic Manual (08/13/2023 5:07 PM [...] M.D. LAB URINE ORDERABLES Performing Organization Address City/[facility]/ZIP Co de Phone Number [facility] [address] 200 [place] [phone] * pH, Random, Urine (08/13/2023 5:07 PM CDT) pH, Random, U 7.0 4.5 - 8.0 08/13/2023 7:46 PM CDT DTL Urine 08/13/2023 5:07 PM CDT 08/13/2023 5:45 PM CDT Carlos Alberto Henson M.D. LAB URINE ORDERABLES [facility] [address] [place] [address], [facility] [address] [address] * (ABNORMAL) Bacterial Culture, Aerobic + Susceptibility, [...] Carlos Alberto Henson M.D. LAB MICROBIOLOGY - [facility] ORDERABLES [address] [address], [facility] [address] [address] * (ABNORMAL) Urinalysis, with Microscopic: Urine, Midstream [...] CDT DTL Predicted 24 [place] [address](H) <229 mg/24 h 08/13/2023 8:50 PM CDT DTL Predicted Range 39420-339037 mg/24 h 08/13/2023 8:50 PM CDT DTL Comment Micro done on <2.5 mL 08/13/2023 7:55 PM CDT DTL Urine (Urine, Midstream) 08/13/2023 5:07 PM CDT 08/13/2023 5:44 PM CDT Carlos Alberto Henson M.D. LAB URINE ORDERABLES [facility] [address] [place] [address], [facility] [address] [place] [address] * Interpretation of Outside CT Abdomen and [...] are clear. Procedure Note Killian Montenegro M.B.B.S., M.Craig. - 08/13/2023 EXAM: INTERPRETATION OF OUTSIDE CT [...] Primary Decline Functional Status [R53.81] Hematuria [R31.9] Rupture Bladder Spontaneous documented in this encounter [...] PRN, indigestion, Starting on Tue08/23/23 at 1547 bisacodyL suppository 10 mg (DULCOLAX) 10 mg, rectal, 2 times daily, First dose (after last reorder) on Tue08/26/23 at 0800 Given 08/26/2023 9:15 AM CDT 10 mg BUPivacaine PF 0.25 % (2.5 mg/mL) injection (MARCAINE) As needed, Starting on Tue08/15/23 at 1240, Intra-Op Given 08/15/2023 12:40 PM CDT 30 mL Abdominal Tissue cefdinir suspension 300 mg (OMNICEF) 300 mg, [...] UTI, catheter Given 08/26/2023 6:27 AM CDT 300 mg Given 08/25/2023 5:50 PM CDT 300 mg Given 08/25/2023 6:40 AM CDT 300 mg clopidogreL tablet 75 mg (PLAVIX) 75 mg, oral, Daily, First dose on Tue08/26/23 at 0900 Given 08/26/2023 9:15 AM CDT 75 mg docusate sodium liquid 100 mg (COLACE) [...] supply. 08/17/23: Id'ed by SISI. [facility] Rx# [id number], filled 07/22/23. HAZARDOUS - Handle with care. Swallow whole. Do NOT crush, chew or open capsule. Given 08/26/2023 9:12 AM CDT 120 mg Given 08/25/2023 9:08 AM CDT 120 mg Given 08/24/2023 9:12 AM CDT 120 mg Lactated Ringer's 1.5 mL/kg/hr ? 75 kg [place] weight (112.5 mL/hr, rounded to 113 mL/hr), intravenous, Continuous, Starting on Tue08/22/23 at 1030, Conditional Phase Pre-Gastrografin Administration. (Rate = 1.5 mL/kg/hr ideal body weight) Lactated Ringer's 0.75 mL/kg/hr ? 75 kg [place] weight (56.25 mL/hr, rounded to 56.3 mL/hr), [...] 8:28 AM CDT 1 patch Lower Back methylene blue 0.5 % (5 mg/mL) injection As needed, Starting on Tue08/15/23 at 1218, Intra-Op Given 08/15/2023 12:18 PM CDT 0.5 mL Other metoprolol tartrate tablet 25 mg (LOPRESSOR) 25 mg, oral, 2 times daily, First dose (after last modification) on Tue08/23/23 at 2100 Given 08/26/2023 9:15 AM CDT 25 mg Given 08/25/2023 9:32 PM CDT 25 mg Given 08/25/2023 9:07 AM CDT 25 mg NaCl 0.9 % irrigation solution 3,000 mL [...] 08/18/2023 11:21 AM CDT 4 mg oxyCODONE solution 2.5 mg (ROXICODONE) 2.5 [...] Given 08/19/2023 4:39 PM CDT 17 g prochlorperazine injection 5 mg (COMPAZINE) 5 mg, [...] Given 08/24/2023 9:11 AM CDT 8 mg trospium tablet 20 mg (SANCTURA) 20 [...] Howe R.N.)1242 (Given - Provider: Tayler Forrest R.N.)1831 (Given - Provider: Mary Rosado RNarendra) 0019 (Not Given - Provider: Fatuma See R.N. - Reason: Patient/family refused)0639 (Given - Provider: Fatuma See R.N.)1136 (Given - Provider: Tayler Forrest RNarendra)1750 (Not Given - Provider: Antonia Salazar R.N. - Reason: Patient/family refused)2349 (Not Given - Provider: Edith Simenatl RNarendra - Reason: Patient/family refused) 0624 (Given - Provider: Edith Simental R.NJonah)1244 (Not Given - Provider: Lupe Valdez RNarendra - Reason: Patient/family refused) bisacodyL suppository 10 [...] Provider: Tayler Forrest R.N. - Reason: Patient/family refused)2150 (Given - Provider: Fatmua See R.N.) 0852 (Not Given - Provider: Tayler Forrest R.N. - Reason: Patient/family refused)2131 (Given - Provider: Antonia Salazar R.N.) 0915 (Given - Provider: Lupe Valdez R.N.) enzalutamide capsule 120 mg (XTANDI) PATIENT'S OWN MED 120 mg, oral, Daily, First dose (after last modification) on Tue08/17/23 at 1230, Patient may use home supply. 08/17/23: Id'ed by SISI. [facility] Rx# [id number], filled 07/22/23. HAZARDOUS - Handle with care. Swallow whole. Do NOT crush, chew or open capsule. 09 (Given - Provider: Tayler Forrest R.N. - Comment: Pat Murray, -2nd RN) 0908 (Given - Provider: Tayler Forrest R.N. - Comment: Pt 's own med from home) 09 (Given - Provider: Lupe Valdez R.N.) fat emulsion yup-icx-cqxmg & fish oil infusion 50 g (SMOFlipid) (COMPLETED) 50 g, intravenous, at 10.4 mL/hr, Administer over 24 Hours, Every 24 hours, First dose on Tue08/22/23 at 2100, For 3 doses, Use a 1.2 micron filter. When fat emulsion is ordered along with a CPN containing iron dextran, administer fat emulsion and CPN through separate lines. 215 (New Bag - Provider: Fatuma See R.N.) [...] since 08/20/2023 at 2000 until manually unheld 09 (Not Given - Provider: Mary Rosado R.N. - Reason: See Provider Order)2099 (Not Given - Provider: Fatuma See R.N. - Reason: See Provider Order - Comment: dose auto held) 0900 (Dose Auto Held - Provider: Kimi Vieira M.D., M.S.)2099 (Not Given - Provider: Antonia Salazar R.N. - Reason: See Provider Order) 0900 (Not Given - Provider: Lupe Valdez R.N. - Reason: See Provider Order)185 (Unheld by provider - Provider: Discharge Provider, [...] Tue08/26/23 at 0930 0939 (Given - Provider: Mayur JamesN.) rosuvastatin tablet 40 mg (CRESTOR) 40 mg, [...] R.N.) 0626 (Given - Provider: Edith Simental R.N.)1600 (Due) Continuous Medication Order 08/24/2023 08/25/2023 08/26/2023 Adult central parenteral nutrition (CPN) () intravenous, at 41.7 mL/hr, Administer over 24 Hours, Continuous PN, Starting on Tue08/24/23 at 2100, For 24 hours, Use a 0.22 micron filter., Indication: Small bowel obstruction (distal) 2155 (New Bag - Provider: Fatuma See R.N.) 154 (Handoff - Provider: Tayler Forrest R.N. - Comment: verified by Antonia Salazar, RN)2126 (Stopped - Provider: Antonia Salazar R.N.) Adult central parenteral nutrition (CPN) intravenous, at 41.7 mL/hr, Administer over 24 Hours, Continuous PN, Starting on Tue08/25/23 at 2100, For 24 hours, Use a 0.22 micron filter., Indication: Small bowel obstruction (distal) 2127 (New Bag - Provider: Antonia Salazar R.N.) 1134 (Stopped - Provider: Lupe Valdez R.N.) heparin [...] Lactated Ringer's 1.5 mL/kg/hr ? 75 kg [place] weight (112.5 mL/hr, rounded to 113 mL/hr), intravenous, Continuous, Starting on Tue08/22/23 at 1030, Conditional Phase Pre-Gastrografin Administration. (Rate = 1.5 mL/kg/hr ideal body weight) Lactated Ringer's 0.75 mL/kg/hr ? 75 kg [place] weight (56.25 mL/hr, rounded to 56.3 mL/hr), [...] 1547 documented in this encounter Care Teams Extension Service Agent Relationship Specialty Start Date End Date Elsewhere, Pcp PCP - General Internal Medicine 08/13/23 documented as of this encounter
--- OUTSIDE RECORDS SUMMARY | 2023-08-29 11:57 | XMS_ITS | Encounter Summary ---
Author Name Unknown Organization [facility] Address [address] [place] [address] Care Team Providers Care Repair Specialist Name Role Phone Elsewhere, Pcp Primary Care Provider Unavailabl e Encounter Details Date Type Department Care Team (Late st Contact Info) Description 08/13/2023 4:35 PM CDT Ancillary Procedure Department of Radiology in [place], [place] [address] [place] [address] Carlos Alberto Henson M.D. [address] [place] [address] Social History Tobacco Use Types Packs/Day Years Used Date Smoking Tobacco: Never Smokeless Tobacco: Never [facility] Utilities Answer Date Recorded In the past 12 months has [facility] electric, gas, oil, or water [employer] threatened to shut off services in your [...] your living situation today? I have a [facility] place to live 08/13/2023 Sex and Gender Information Value Date Recorded Sex Assigned at Not on file Gender Identity Not on file Sexual Orientation Not on file documented as of this encounter Plan of Treatment Upcoming Encounters Date Type Department Care Team (Late st Contact Info) Description 09/07/2023 11:00 AM CDT Procedure visit Department of Urology in [place], [place] [address] [place] [address] Sima Venegas M.D. [address] [place] [address] documented as of this encounter Procedures Procedure [...] on filedocumented in this encounter Care Teams Repair Specialist Relationship Specialty Start Date End Date Elsewhere, Pcp PCP - General Internal Medicine 08/13/23 documented as of this encounter
--- OUTSIDE RECORDS SUMMARY | 2023-08-29 11:57 | XMS_ITS | Clinical Summary ---
Author Name Unknown Organization [employer] [facility] Address [place], [place] [address] Care Team Providers Care Powertrain Engineer Name Role Phone Cesar Mccollum MD Primary Care Provider Nicola Mcgarry MD Unavailable [phone] Mireya Tan MD Unavailable [phone] Allergies No known active allergies Medications Medication Sig Dispensed Refills Start Date End Date Status nitroglycerin (NITROSTAT) 0.4 mg SL tabletIndications:Ches t pain on exertion Place 1 tablet under the tongue every 5 minutes if needed for Chest Pain (may take up to 3 tablets SL x 3 q 5 minutes). 1 Bottle 11/02/2019 Active enzalutamide (XTANDI) 40 mg capsuleIndications:Pro state cancer (HC) Take 120 mg by mouth [...] once daily. Active rivaroxaban (XARELTO) 10 mg tabletIndications:deep vein thrombosis prevention Take 1 Tablet (10 mg) by mouth once daily with evening meal. 0 12/02/2022 Active calcium carbonate (Calcium 600) 600 mg calcium (1,500 mg) tablet Take 600 mg by mouth two times daily with meals. Active iron, carbonyl (Perfect Iron) 25 mg iron tab Take by mouth. 04/05/2023 Active rosuvastatin (CRESTOR) 40 mg tabletIndications:Hype rlipidemia, unspecified hyperlipidemia type TAKE 1 TABLET(40 MG) BY MOUTH AT BEDTIME 90 Tablet 3 05/09/2023 Active naproxen (NAPROSYN) 500 mg tabletIndications:Othe r hydronephrosis Take 0.5-1 Tablets (250-500 mg) by mouth every 12 hours if needed for Pain. 5 Tablet 07/18/2023 Active amLODIPine (NORVASC) 10 mg tabletIndications:Thierno gn essential HTN TAKE 1 TABLET(10 MG) BY MOUTH EVERY DAY 90 Tablet 2 07/21/2023 Active clopidogreL (PLAVIX) 75 mg tabletIndications:Guido nary artery disease, unspecified vessel or lesion type, unspecified whether angina present, unspecified whether eklutna or transplanted heart Take 1 Tablet (75 mg) by mouth every morning. 90 Tablet 3 07/21/2023 Active metoprolol succinate (TOPROL XL) 50 mg sustained-release tabletIndications:Hype rtension, unspecified type Take 1 Tablet (50 mg) by mouth once daily. 90 Tablet 3 07/21/2023 Active tamsulosin (FLOMAX) 0.4 mg capsuleIndications:BPH without urinary obstruction Take 1 Capsule (0.4 mg) by mouth once daily after a meal. 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 ZWR=788.87 Bladder mass 02/29/2020 04/30/2020 Hematuria 02/29/2020 03/05/2020 Acute deep vein thrombosis (DVT) 02/29/2020 11/20/2020 S/P coronary angioplasty 11/03/2016 Chest pain 09/15/2016 03/05/2020 Elevated prostate specific antigen (PSA) 10/06/2010 03/05/2020 Hip arthritis 10/06/2010 03/05/2020 Colon polyp 07/15/2010 PATRICE (acute kidney injury) Obstructive uropathy 020 Encounters Date Type Department Care Team Description 08/23/2023 Transcribe Orders [facility] [address] [place], [place] [id number] Provider, Non-Excellian 08/13/2023 Orders Only [facility] Scanner 1 scan: (1-Ord) [facility], ABDOMEN/PELVIS W/O, 08/13/2023 08/04/2023 11:30 AM CDT Office Visit [facility] [address] [place] [address] Sandip Garcia, [facility] 08/04/2023 Travel 08/02/2023 2:30 PM CDT Orders Only [facility] [address] [place] [address] Lab, [facility] 08/02/2023 Travel 08/02/2023 Orders Only [facility] [address] [place] [address] Cesar Mccollum MD <No scans attached> 07/21/2023 8:55 AM CDT [facility] Visit [facility] [address] [facility] [phone] Cesar Mccollum MD Medicare ANNUAL (subsequent) Visit (83 year old); Post Procedure (Uteretal stent exchange) 07/21/2023 Travel 07/18/2023 10:00 AM CDT Anesthesia Event [facility] [address] [place] [address] Leonardo Frankel MD Purdy, Adam John, CRNA 07/18/2023 9:45 AM CDT - 07/18/2023 10:54 AM CDT Surgery [facility] [address] [place] [address] Nicola Mcgarry MD CYSTOSCOPY EXCHANGE, RIGHT URETERAL STENT 07/18/2023 7:41 AM CDT - 07/18/2023 3:26 PM CDT Hospital Encounter [facility] [address] [place] [address] Nicola Mcgarry MD Other hydronephrosis (Primary Dx) Discharge Disposition: Home Self Care 07/18/2023 Travel 07/15/2023 8:20 AM CDT Preop Visit [facility] [address] [place] [address] Shannan Bain, Pre-Op Exam (/BLADDER SURGERY [facility] DR. MCGARRY 07/18/23) 07/15/2023 Travel 07/11/2023 Orders Only [facility] Scanner 1 scan: (1-Ord) [facility] CL[facility] REPORT, 07/11/2023 07/06/2023 Telephone [facility] [address] [place] [address] Cesar Mccollum MD Follow Up 07/05/2023 4:00 PM CDT Orders Only [facility] [address] [place] [address] Lab, [facility] 07/05/2023 Travel 07/05/2023 Orders Only [facility] [address] [place] [address] Cesar Mccollum MD <No scans attached> 07/01/2023 8:30 AM CDT Ancillary Procedure [facility] [address] [place] [address] 07/01/2023 Travel 06/25/2023 Orders Only [facility] Scanner 1 scan: (1-Ord) [place], [facility], 06/25/2023 06/23/[address] [facility] [address] [place] [address] Nicola Mcgarry MD from Last 3 Months Immunizations Name Administration Dates Next Due COVID-19 Vaccine Spikevax (M oderna 50mcg/0.5mL) 12YO+ 3299-2207 Formula PF 07/21/2023,03/08/2023 COVID-19 vaccine (Pfizer-Bio NTech [...] Description 10/04/2023 1:00 PM CDT Office Visit [facility] [address] [place] [address] Regan Miller MD [address] [place] [address] Health Maintenance Due Date Last [...] 09/07/2016 Pneumococcal series for age 65+ Completed 4 Medical Devices Implanted Type Area Eap Consultant Device Identifier Shelf Expiration Date Model / Serial / Lot Stent Uret [id number] Contour - [id number] Implanted:Qty: 1 on 07/18/2023 by Nicola Mcgarry MD at [facility] Right: Ureter [facility] 02/27/2026 [id number] Procedures Procedure Name Priority Date/Time Associated Diagnosis Comments SCAN-CT INTERPRETATION 08/13/2023 12:00 AM CDT HEMOGLOBIN Routine 08/02/2023 2:26 PM CDT Chronic blood loss anemia HEMOGLOBIN A1C SCREENING Routine 07/21/2023 9:58 AM CDT Prediabetes HEMOGLOBIN Routine 07/21/2023 9:58 AM CDT Chronic blood loss anemia XR RETROGRADE PYELOGRAM W/WO KUB Routine 07/18/2023 11:04 AM CDT SUPRAGLOTTIC-LMA Routine 07/18/2023 10:17 AM CDT CYSTOSCOPY EXCHANGE URETERAL STENT Class E Urgent 07/18/2023 9:41 AM CDT Hydronephrosis BASIC METABOLIC PANEL Routine 07/15/2023 9:40 AM CDT Pre-op exam SCAN-LABORATORY REPORT 07/11/2023 12:00 AM CDT HEMOGLOBIN Routine 07/05/2023 4:00 PM CDT Chronic blood loss anemia CT ABDOMEN PELVIS WO Routine 07/01/2023 8:44 AM CDT Unspecified hydronephrosis SCAN-LABORATORY REPORT 06/25/2023 12:00 AM CDT from Last 3 Months Results * SCAN-CT INTERPRETATION (08/13/2023 12:00 AM CDT) Anatomical Region Laterality Modality Other Scanner OTHER * (ABNORMAL) HEMOGLOBIN (08/02/2023 2:26 PM CDT) Only the most recent of3 resultswithin the time period is included. HEMOGLOBIN 10.1(L) 13.5 - 17.5 g/dL 08/02/2023 2:31 PM CDT [facility] MCV 89 80 - 100 fL 08/02/2023 2:31 PM CDT [facility] Blood BLOOD SPECIMEN / Unknown Venipuncture / Unknown 08/02/2023 2:26 PM CDT 08/02/2023 2:26 PM CDT Cesar Mccollum MD HEMATOLOGY Performing Organization Address City/[facility]/ZIP Co de Phone Number [facility] [address] [place] [address], * HEMOGLOBIN A1C SCREENING (07/21/2023 9:58 AM CDT) HEMOGLOBIN A1C SCREENING 5.4 <=6.4 % 07/21/2023 5:56 PM CDT [facility] Blood BLOOD SPECIMEN / Unknown Venipuncture / Unknown 07/21/2023 9:58 AM CDT 07/21/2023 10:00 AM CDT Narrative [facility] - 07/21/2023 5:56 PM CDT ? (<5.7%) ?Normal ? (5.7% to 6.4%) ? Indicates prediabetes ? (>=6.5%) ? Confirms diabetes Falsely low levels may be seen with: Recent Transfusion, Recent Significant Blood Loss, Hemolytic Diseases, or Falsely elevated levels may be seen with: Untreated Anemias, Splenectomy Cesar Mccollum MD CHEMISTRY Performing Organization Address [facility] Co de Phone Number [facility] [address] [address], [place] * XR RETROGRADE PYELOGRAM W/WO KUB (07/18/2023 [...] BASIC METABOLIC PANEL (07/15/2023 9:40 AM CDT) Pathologist [facility] SODIUM 141 136 - 145 mmol/L 07/15/2023 5:14 PM CDT [facility] POTASSIUM 4.7 3.5 - 5.1 mmol/L 07/15/2023 5:14 PM CDT [facility] CHLORIDE 106 98 - 107 mmol/L 07/15/2023 5:14 PM T [facility] CO2,TOTAL 24 22 - 29 mmol/L 07/15/2023 5:14 PM CDT [facility] ANION GAP 11 5 - 18 07/15/2023 5:14 PM CDT [facility] GLUCOSE 91 70 - 99 mg/dL 07/15/2023 5:14 PM T [facility] CALCIUM 9.3 8.8 - 10.2 mg/dL 07/15/2023 5:14 PM CDT [facility] BUN 22 8 - 23 mg/dL 07/15/2023 5:14 PM T [facility] CREATININE 1.32(H) 0.70 - 1.20 mg/dL 07/15/2023 5:14 PM T [facility] BUN/CREAT RATIO 17 10 - 20 5:14 PM T [facility] eGFR 53(L) >90 mL/min/1.7 3m2 07/15/2023 5:14 PM T [facility] Comment:As of 2021, eG FR [...] 9:40 AM CDT Shannan Bain DO CHEMISTRY [facility] [address] [place] [address], * SCAN-LABORATORY REPORT (07/11/2023 12:00 AM CDT) [...] Code Status Discussion: Reviewed Preferences Care Teams Powertrain Engineer Relationship Specialty Start Date End Date Cesar Mccollum MD [address] [place] [address] PCP - General Family Practice 03/04/20 Nicola Mcgarry MD [address] [place] [phone] Surgery - Urology 03/13/20 Mireya Tan MD [address] [facility] [place] [phone] Hematology - Pathology 03/13/20
--- OUTSIDE RECORDS SUMMARY | 2023-08-29 11:57 | XMS_ITS | Data Portability ---
Author Name Unknown Address [address] [place] [address] Phone [phone] Organization [facility] Address [address] [place] [address] Care Team Providers Care Commercial Agent Name Role Phone MASOUD SAUER Primary Care Provider Assessment No assessment recorded. Plan of Treatment Reminders Order Date Submit Date Provider Last Modified By Organization Details Last Modified Time Details Appointments None recorded . Lab urinalys is, dipstick 2023 024 [email or web address] [facility], [address] [place], [address], 15:08:54 culture, urine 2023 024 [facility], [address], [place], [address], 4 10:11:11 Referral None recorded . Procedures None recorded . Surgeries cystosco py with ureteral stent exchange (SURG) 2021 022 [email or web address] Not available 15:46:30 cystosco py with ureteral stent exchange (SURG) 2021 022 [email or web address] Not available 16:50:47 Imaging None recorded . Medication Orders Bactrim DS 800 mg-160 mg tablet 2023 024 [email or web address] [id number], [address] [place], [place], [phone], 4 16:19:28 Myrbetri q 50 mg tablet,e xtended release 2021 022 [id number], [address] , [place], [place], [phone], 17:50:02 Patient TargetsNo targets recorded. Patient InstructionsNo instructions recorded. Reason for Referral None Reported. Results Created Date Observation Date Name Description Value Unit Range Abnormal Flag LastModifiedBy Organization Detail LastModifiedTime 06/23/1906/23/2023 URINE CULTU RE final report MICROB IOLOGY RESULT S Not Available [facility] [address], [place], [address], 06/25/2023 10:11:11 06/23/19 24 06/23/2023 urina lysis , dipst ick Color-Status Red Not Available [facility] [address], [place], [address], 06/23/2023 15:08:10 06/23/19 24 06/23/2023 urina lysis , dipst ick pH-Status 7.5 Not Available [facility] [address], [place], [address], 06/23/2023 15:08:10 06/23/19 24 06/23/2023 urina lysis , dipst ick Protein-Stat us >=9.0 Not Available [facility] [address], [place], [address], 06/23/2023 15:08:10 06/23/1906/23/2023 urina lysis , dipst ick Nitrates-Sta tus negati ve Not Available [facility] [address], [place], [address], 06/23/2023 15:08:10 06/23/19 24 06/23/2023 urina lysis , dipst ick Blood-Status Large Not Available [facility] [address], [place], [address], 06/23/2023 15:08:10 06/23/19 24 06/23/2023 urina lysis , dipst ick Leuko-Status Negati ve Not Available [facility] [address], [place], [address], 06/23/2023 15:08:10 06/23/19 24 06/23/2023 urina lysis , dipst ick Specimen Type Voided Not Available [facility] [address], [place], [address], 06/23/2023 15:08:10 03/04/20 20 03/03/2020 NM, bone scan, whole body No observ ation record ed. [email or web address] [facility] [address], [place], [address], 03/11/2020 18:09:57 07/04/19 24 07/01/2023 CT, abdom en + pelvi s, w/o contr ast No observ ation record ed. [email or web address] [facility] [address], [place], [address], 07/04/2023 08:51:59 07/18/19 24 07/18/2023 XR, kidne y + urete r + bladd er No observ ation record ed. [email or web address] [facility] [address], [place], [address], 07/22/2023 15:56:19 Result Notes None recorded. Procedures Surgical History Date Name Laterality Status Provider Name and Address Organization Details Recorded Time Bladder Scan completed Rabia matthews, [facility] 06/23/2023 15:08:00 Cystoscopy completed Nicola Ware MD [address] [place] [address],[address], [place], [address], [facility] 12/30/2021 17:11:17 Colonoscopy completed Nicola Ware MD [address] [facility],[address], [place], [address], [facility] 12/30/2021 17:11:22 Imaging Results Imaging Date Name Status LastModified by Organiz ation Details LastModified Time 03/03/2020 NM, bone scan, whole body completed [email or web address] [facility] [address], [place], [address], 03/11/2020 18:09:57 07/01/2023 CT, abdomen + pelvis, w/o contrast active [email or web address] [facility] [address], [place], [address], 07/04/2023 08:51:59 07/18/2023 XR, kidney + ureter + bladder completed [email or web address] [facility] [address], [place], [address], 07/22/2023 15:56:19 Procedure Notes None recorded. Medical [...] COLONOSCO PY PREP INSTRUCTI ONS RECEIVED FROM [facility] active Not Available Not Available No t Available furosemide 20 mg tablet TAKE 1 TABLET BY MOUTH DAILY active Not Available Not Available No t Available cefuroxime axetil 500 mg tablet active Not Available Not Available No t Available polyethylen e glycol 3350 17 gram/dose oral powder MIX AND DRINK DIRECTED IN COLONOSCO PY PREP INSTRUCTI ONS RECEIVED FROM [facility] active Not Available Not Available No [...] Updated DateTime 12/30/2021 177.8 cm 27.4 kg/m2 72560.14 g Nicola Ware MD [address] [place] [address], [address] 12/30/2021 17:10:12 Date Recorded Body height Body mass index (BMI) Body weight Provider Name and Address Organization Details Last Updated DateTime 03/12/2022 177.8 cm 27.4 kg/m2 34100.14 g Rabia Ferrell [facility] 03/12/2022 13:55:47 Social History Question Answer Notes LastModified by Organizat ion Details LastModified Time Tobacco Smoking Status Never Smoker Nicola Ware MD [address] [place] [address], [address], [facility] 12/30/2021 17:11:00 What Is Your [...] Encounter Closed Date Diagnosis/Indication Diagnosis SNOMED-CT Code [id number] Nicola Ware MD [facility] [address] [place] [address] 12/30/2021 16:01:19 01/01/2022 09:36:50 Increased frequency of urination 463158710 Malignant tumor of prostate 402412761 Hydronephrosis 64992897 [id number] Aliza Landeros [facility] [address] [place] [address] 03/12/2022 13:13:50 03/15/2022 14:00:47 Increased frequency of urination 098961330 Malignant tumor of prostate 850701430 Hydronephrosis 43894018 [id number] Nicola Ware MD [facility] [address] [place] [address] 06/23/2023 14:16:52 06/24/2023 08:40:38 Blood in urine 50774062 Health Concerns Section Related Observation LastModified by Organization Detai ls LastModified Time None Recorded Concern Status LastModified by Organization Details LastModified Time None Recorded Advance Directives Directive None Recorded Payers Encounter Date Sequence Insurance Name Policy Number Policy Krishnan Covered Member ID Krishnan Member ID Guarantor Name 06/23/2023 1 [employer] (MEDICARE REPLACEMENT/ ADVANTAGE - PPO) [id number] José Miguel D Braucher [id number] José Miguel D Braucher 03/12/2022 1 [employer] (MEDICARE REPLACEMENT/ ADVANTAGE - PPO) [id number] José Miguel D Braucher [id number] José Miguel D Braucher 12/30/2021 1 [employer] (MEDICARE REPLACEMENT/ ADVANTAGE - PPO) [id number] José Miguel D Braucher [id number] José Miguel D Braucher Notes Date Note Type Note Provider Name and Address Organization Details Recorded Time 12/30/2021 text/html HPI Notes: Excer pt from hospital consultation... 81 y.o. year old male who was admitted to [facility] for gross hematuria & CT [...] of the history. Nicola Ware MD [address], [place], [address], [facility] 12/30/2021 23:07:10 03/12/2022 text/html HPI Notes: Excer pt from hospital consultation... 81 y.o. year old male who was admitted to [facility] for gross hematuria & CT [...] some of the history. Nicola Ware MD [address] [place] [address],[address], [address], [facility] 03/12/2022 17:21:47 06/23/2023 text/html HPI Notes: 83 Y male here after calling triage this AM with hematuria/pain with urination. Patient has stent in place, last exchange 02/08/2022. 06/23/23 visit completed by Curry Ware MD [address] [place] [address],[address], [place], [address], [facility] 06/23/2023 16:19:33
--- OUTSIDE RECORDS SUMMARY | 2023-08-29 11:57 | XMS_ITS | Encounter Summary ---
Author Name Unknown Organization [facility] Address [address] [place] [address] Care Team Providers Care Assembler Golf Wood Head Name Role Phone Elsewhere, Pcp Primary Care Provider Unavailabl e Encounter Details Date Type Department Care Team (Latest Contact Info) Description 08/13/2023 Intake [facility] Social History Tobacco Use Types Packs/Day Years Used Date Smoking Tobacco: Never Smokeless Tobacco: Never [facility] Utilities Answer Date Recorded In the past 12 months has [facility] electric, gas, oil, or water company [...] your living situation today? I have a [facility] place to live 08/13/2023 Sex and Gender Information Value Date Recorded Sex Assigned at Not on file Gender Identity Not on file Sexual Orientation Not on file documented as of this encounter Plan of Treatment Upcoming Encounters Date Type Department Care Team (Late st Contact Info) Description 09/07/2023 11:00 AM CDT Procedure visit Department of Urology in [place], [place] [address] [place] [address] Sima Venegas M.D. [address] [place] [address] documented as of this encounter Visit Diagnoses Not on filedocumented in this encounter Care Teams Assembler Golf Wood Head Relationship Specialty Start Date End Date Elsewhere, Pcp PCP - General Internal Medicine 08/13/23 documented as of this encounter
[2023-08-29 12:00] VITALS: O2SAT 98
[2023-08-29 12:03] VITALS: BP 131/76; PULSE 98; RESP 16; O2SAT 98
[2023-08-29 12:07] LABS: Lactate* 1.9 mmol/L (0.5-1.9)
[2023-08-29 12:18] LABS: Eosinophils Absolute Auto 0.06 K/uL (0.00-0.50); Eosinophils Percent Auto 0.8 % (0.0-7.0); Hemoglobin* 10.6 gm/dL (13.5-17.5); Immature Granulocytes Abs Auto 0.01 K/uL (0.00-0.30); Immature Granulocytes Pct Auto 0.1 %; Lymphocytes Percent Auto 6.3 % (20-44); Mean Corpuscular HGB Conc 31 gm/dL (32-36); Mean Corpuscular Hemoglobin 28 pg (26-34); Mean Corpuscular Volume 90 fL (80-100); Monocytes Percent Auto 10.3 % (0.0-11.0); Neutrophils Percent Auto 82.5 % (42.0-72.0); Platelet Count* 369 K/uL (140-440); RDW Coefficient of Variation % 16.9 % (11.5-15.5); White Blood Count* 7.48 K/uL (4.50-11.00)
[2023-08-29 12:23] LABS: Chloride* 110 mmol/L (96-114)
[2023-08-29 12:24] LABS: Potassium* 3.7 mmol/L (3.6-5.1); Sodium* 137 mmol/L (135-149)
[2023-08-29 12:26] LABS: Est. Creatinine Clearance* 58.57; Estimated Glomerular Filt Rate 74 ml/min; Slide Review Reflex No
[2023-08-29 12:27] LABS: Anion Gap 5 mEq/L (7-15); Blood Urea Nitrogen* 18 mg/dL (7-30); Calcium* 7.7 mg/dL (8.4-10.6); Carbon Dioxide* 22 mmol/L (20-32); Glucose* 123 mg/dL (60-115)
[2023-08-29 12:31] VITALS: BP 129/73; PULSE 89; RESP 14; O2SAT 97
[2023-08-29 13:16] VITALS: BP 126/83; PULSE 108; RESP 14; TEMP 36.4
== END 2023-08-29 13:10 | disposition home or self-care (01) ==
PROVIDERS: Emergency Provider Family Medicine; PCP Family Medicine
DX: T83.9XXA Unspecified complication of genitourinary prosthetic device, implant and graft, initial encounter (principal)
CPT/HCPCS: 36415; 80048; 83605; 85025; 94761; 96360; 99283; 99284; J7030

== ENCOUNTER 2023-08-30 14:45 | Emergency (ER) | payer MEDICARE, OTHER, SELFPAY ==
[2023-08-30] VITALS (7 sets, daily range): BP systolic 116–143; BP diastolic 67–72; PULSE 84–123; RESP 16; TEMP 36.6; O2SAT 94–99; BMI 26.5
--- NOTE | 2023-08-30 15:22 | ED.MALEGU ---
HPI - Male Genitourinary General Date Seen: 08/30/23 Chief complaint: Urogenital Problems, Male Stated complaint: Catheter plugged Time Seen by Provider: 08/30/23 14:47 Source: patient Mode of arrival: ambulatory Limitations: no limitations History of Present Illness HPI Narrative: Patient is an 83-year-old male presenting to the emergency department for a blocked Tabares catheter. He was here the 1st time back on August 12 and transfer to [facility] and had a flatter procedure done to close up a hole in his bladder. He has had a fully since then and was finally discharged this past Tuesday. He is he states the urine looked like a pinkish color up until Tuesday were became dark red and causing blockages of the Catheter. He came to the emergency department that time and they were able to get the catheter unclogged. Was discharged then. Today the catheter became clogged again. His son tried to unclog it at home without success but Was able to get 1 large clot out. He also is feeling his bladder is quite fall and has some suprapubic to that. Denies lightheadedness, fevers, chills, weakness numbness, chest pain, shortness of breath. Related Data Home Medications Medication Instructions Recorded Confirmed amlodipine 10 mg tablet 10 mg PO DAILY 10/20/21 06/28/23 calcium carbonate 600 mg-vitamin 1 cap PO BID 10/20/21 06/28/23 D3 10 mcg (400 unit) capsule metoprolol succinate 50 mg 50 mg PO DAILY 10/20/21 06/28/23 tablet,extended release 24 hr mirabegron 25 mg tablet,extended 50 mg PO Q24H 10/20/21 06/28/23 release 24 hr (Myrbetriq) nitroglycerin 0.4 mg sublingual 0.4 mg sublingual Q5-15M PRN 10/20/21 06/28/23 tablet tamsulosin 0.4 mg capsule 0.4 mg PO Q24H 10/20/21 06/28/23 clopidogrel 75 mg tablet (Plavix) 75 mg PO QDAY 11/24/22 06/28/23 coenzyme Q10 100 mg capsule 100 mg PO QDAY 11/24/22 06/28/23 rosuvastatin 40 mg tablet 40 mg PO QDAY 11/24/22 06/28/23 cholecalciferol (vitamin D3) 50 50 mcg PO DAILY 12/08/22 06/28/23 mcg (2,000 unit) tablet (Vitamin D3) Previous Rx's Medication Instructions Recorded enzalutamide 40 mg capsule (Xtandi) 120 mg (3 x 40 mg) PO QDAY #90 caps 01/24/23 iron,carbonyl 65 mg-vitamin C 125 1 tab PO QDAY #120 tabs 05/30/23 mg tablet,delayed release (Vitron-C) rivaroxaban 10 mg tablet (Xarelto) 10 mg PO QDAY #90 tabs 05/30/23 Allergies Allergy/AdvReac Type Severity Reaction Status Date / Time No Known Drug Allergies Allergy Verified 06/28/23 14:11 Review of Systems Status of ROS: Reports: 10 or more systems reviewed and unremarkable except as noted in History and below [facility] Medical History Health care directive on file ?Z78.9 - Other specified health status (ICD-10) Synovial cyst of knee ?M71.20 - Synovial cyst of popliteal space [[place]bert], unspecified knee (ICD-10) Elevated international normalized ratio (INR) ?R79.1 - Abnormal coagulation profile (ICD-10) Effusion of right knee ?M25.461 - Effusion, right knee (ICD-10) Edema of right lower extremity ?R60.0 - Localized edema (ICD-10) Encounter for counseling regarding advance directives (08/19/05) ?Z71.89 - Other specified counseling (ICD-10) Adenocarcinoma of prostate (2020) ?C61 - Malignant neoplasm of prostate (ICD-10) 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 ?I82.423 - Acute embolism and thrombosis of iliac vein, bilateral (ICD-10) HTN (hypertension) ?I10 - Essential (primary) hypertension (ICD-10) CAD (coronary artery disease) ?I25.10 - Atherosclerotic heart disease of [place] coronary artery without angina pectoris (ICD-10) Surgical History Status post hip replacement ?Z96.649 - Presence of unspecified artificial hip joint (ICD-10) Status post cystoscopy with ureteral stent placement ?Z96.0 - Presence of urogenital implants (ICD-10) S/P radiation therapy > 12 wks ago ?Z92.3 - Personal history of irradiation (ICD-10) Social History Smoking Status: Never smoker Do you use any of these nicotine containing products: None Second hand tobacco smoke exposure: No How often do you have a drink containing alcohol: never How often do you have six or more drinks on one occasion: Less than monthly AUDIT-C Alcohol total score: 1 Non-prescribed substance use: denies use service: No Exam Narrative: Exam Narrative: Const: Well-nourished, Well-developed, in mild distress Eyes: PERRL, no conjunctival injection, and symmetrical lids HENT: Atraumatic external nose and ears. Moist mucous membranes. Neck: Symmetric, trachea midline, No thyromegaly. CVS: RRR, No murmurs or gallops. Peripheral pulses 2+ and equal in all extremities RESP: Unlabored respiratory effort. Clear to auscultation bilaterally. GI: Mild suprapubic tenderness, Nondistended, No rebound or guarding. MSK:Extremities w/o deformity, Normal Active ROM Skin: Warm, Dry. No rashes or lesions. Well-healing surgical site at the midline suprapubic Neuro: Normal Muscle tone, No focal neurological deficits. Psych: Awake, Alert, & Oriented x3. Appropriate mood and affect. Const: Vital Signs, click to edit/add: Vital Signs - 24 hr 08/30/23 14:53 08/30/23 17:35 08/30/23 17:40 Temperature 97.9 F Pulse Rate Pulse Rate [Right Pulse Oximeter] 84 Respiratory Rate 16 Blood Pressure Blood Pressure [Ri ght Upper Arm] 116/72 Pulse Oximetry 99 94 97 Oxygen Delivery Me thod Room Air 08/30/23 17:45 08/30/23 18:00 08/30/23 18:01 Temperature Pulse Rate 119 H 120 H 122 H Pulse Rate [Right Pulse Oximeter] Respiratory Rate Blood Pressure 143/67 H Blood Pressure [Ri ght Upper Arm] Pulse Oximetry 96 94 96 Oxygen Delivery Me thod 08/30/23 18:15 Temperature Pulse Rate 123 H Pulse Rate [Right Pulse Oximeter] Respiratory Rate Blood Pressure Blood Pressure [Ri ght Upper Arm] Pulse Oximetry 96 Oxygen Delivery Me thod Course Vital Signs Vital signs: Initial Vital Signs Temperature 97.9 F 08/30/23 14:53 Temperature Source Temporal Artery Scan 08/30/23 14:53 Pulse Rate 84 08/30/23 14:53 Pulse Rhythm Regular 08/30/23 14:53 Pulse Strength 3+ Normal 08/30/23 14:53 Respiratory Rate 16 08/30/23 14:53 Blood Pressure 116/72 08/30/23 14:53 Blood Pressure Mean 86 08/30/23 14:53 Blood Pressure Position Sitting 08/30/23 14:53 Pulse Oximetry 99 08/30/23 14:53 Oxygen Delivery Method Room Air 08/30/23 14:53 Vital Signs Temperature 97.9 F 08/30/23 14:53 Pulse Rate 84 08/30/23 14:53 Respiratory Rate 16 08/30/23 14:53 Blood Pressure 116/72 08/30/23 14:53 Pulse Oximetry 99 08/30/23 14:53 Oxygen Delivery Method Room Air 08/30/23 14:53 Temperature 97.9 F 08/30/23 14:53 Pulse Rate 123 H 08/30/23 18:15 Respiratory Rate 16 08/30/23 14:53 Blood Pressure 143/67 H 08/30/23 18:01 Pulse Oximetry 96 08/30/23 18:15 Oxygen Delivery Method Room Air 08/30/23 14:53 MDM - Male Genitourinary MDM Narrative Medical decision making narrative: Patient is an 83-year-old male presenting for hematuria. He had a bladder procedure done at [facility] roughly 3 weeks ago. He had some light pink urine up until Tuesday and has since had dark red urine with large amounts of clot. We will try to flush this catheter to see if we are able to. Will also order a CBC and BMP. CBC returns with hemoglobin 9.7. It was 10.6 yesterday. BMP shows no concerning findings. We attempted to flush the Tabares without success so it was replaced. Whether replacing it large clots came out of the Urethra. A new 3 way Tabares was placed and CBI was started. [facility] was consulted. I spoke to Dr. Ring and she recommends a bladder ultrasound to look for clot burden. The at the time I spoke to her the CBI just started. I went back in to check afterwards and large amount Of clots was passed and now the patient and his son states the urine in the tubing appears like it did when they were discharged this past Tuesday. Dr. Ring states due to the patients history he should be transferred to [place] [facility] for ED to ED transfer. US is pending. Patient is agreeable to this plan Lab Data Labs: Lab Results 08/30/23 Range/Units 15:17 WBC 7.91 (4.50-11.00) K/uL RBC 3.44 L (4.30-5.90) m/uL Hgb 9.7 L (13.5-17.5) gm/dL Hct 31.3 L (37.0-53.0) % MCV 91 (80-100) fL MCH 28 (26-34) pg MCHC 31 L (32-36) gm/dL RDW Coeff of Herson 16.6 H (11.5-15.5) % Plt Count 367 (140-440) K/uL Neut % (Auto) 84.7 H (42.0-72.0) % Lymph % (Auto) 5.9 L (20-44) % [place] % (Auto) 7.5 (0.0-11.0) % Eos % (Auto) 0.8 (0.0-7.0) % Baso % (Auto) 0.1 (0.0-3.0) % Neut # (Auto) 6.70 (1.7-7.0) K/uL Lymph # (Auto) 0.50 L (0.90-2.90) K/uL [place] # (Auto) 0.60 (0.00-0.90) K/UL Eos # (Auto) 0.06 (0.00-0.50) K/uL Baso # (Auto) 0.01 (0.00-0.30) K/uL Abs Immat Gran (auto) 0.08 (0.00-0.30) K/uL Imm/Tot Granulo (auto) 1.0 % Sodium 137 (135-149) mmol/L Potassium 3.9 (3.6-5.1) mmol/L Chloride 109 (96-114) mmol/L Carbon Dioxide 22 (20-32) mmol/L Anion Gap 6 L (7-15) mEq/L BUN 20 (7-30) mg/dL Creatinine 1.1 (0.5-1.5) mg/dL Estimated Creat Clear 51.62 Estimated GFR 66 ml/min Glucose 156 H (60-115) mg/dL Calcium 8.2 L (8.4-10.6) mg/dL Discharge Plan Discharge Clinical Impression: Post-operative complication Hematuria Qualifiers: Hematuria type: gross Qualified Code(s): R31.0 - Gross hematuria Patient Disposition: [facility] Discharge Location: [facility] Condition: Stable Instructions: Hematuria (ED) Activity Level: No Restrictions Discharge Diet: Regular Prescriptions: No Action clopidogrel [Plavix] 75 mg tablet 75 mg PO QDAY coenzyme Q10 100 mg capsule 100 mg PO QDAY rosuvastatin 40 mg tablet 40 mg PO QDAY Xtandi 40 mg capsule 120 mg PO QDAY Qty: 90 11RF metoprolol succinate 50 mg tablet extended release 24 hr 50 mg PO DAILY tamsulosin 0.4 mg capsule 0.4 mg PO Q24H amlodipine 10 mg tablet 10 mg PO DAILY Myrbetriq 25 mg tablet extended release 24 hr 50 mg PO Q24H calcium carbonate-vitamin D3 600 mg-10 mcg (400 unit) capsule 1 cap PO BID Patient Comments: with meals nitroglycerin 0.4 mg tablet, sublingual 0.4 mg sublingual Q5-15M PRN Rx Instructions: do not exceed 3 doses per episode cholecalciferol (vitamin D3) [Vitamin D3] 50 mcg (2,000 unit) tablet 50 mcg PO DAILY Xarelto 10 mg tablet 10 mg PO QDAY Qty: 90 2RF Hold Instructions: Doctor's Order Vitron-C 65 mg iron- 125 mg tablet,delayed release (DR/EC) 1 tab PO QDAY Qty: 120 3RF Stand Alone Forms: MyHealth Info Instructions Discharge Comment: Pt transferred to [facility] ED to ED transfer
[2023-08-30 15:28] LABS: Basophils Absolute Auto 0.01 K/uL (0.00-0.30); Basophils Percent Auto 0.1 % (0.0-3.0); Eosinophils Absolute Auto 0.06 K/uL (0.00-0.50); Eosinophils Percent Auto 0.8 % (0.0-7.0); Hematocrit 31.3 % (37.0-53.0); Hemoglobin* 9.7 gm/dL (13.5-17.5); Immature Granulocytes Abs Auto 0.08 K/uL (0.00-0.30); Lymphocytes Percent Auto 5.9 % (20-44); Mean Corpuscular HGB Conc 31 gm/dL (32-36); Mean Corpuscular Hemoglobin 28 pg (26-34); Mean Corpuscular Volume 91 fL (80-100); Monocytes Percent Auto 7.5 % (0.0-11.0); Neutrophils Percent Auto 84.7 % (42.0-72.0); Platelet Count* 367 K/uL (140-440); RDW Coefficient of Variation % 16.6 % (11.5-15.5); Red Blood Count 3.44 m/uL (4.30-5.90); White Blood Count* 7.91 K/uL (4.50-11.00)
[2023-08-30 15:38] LABS: Slide Review Reflex No
[2023-08-30 15:40] LABS: Chloride* 109 mmol/L (96-114); Sodium* 137 mmol/L (135-149)
[2023-08-30 15:41] LABS: Potassium* 3.9 mmol/L (3.6-5.1)
[2023-08-30 15:43] LABS: Anion Gap 6 mEq/L (7-15); Carbon Dioxide* 22 mmol/L (20-32); Creatinine* 1.1 mg/dL (0.5-1.5); Est. Creatinine Clearance* 51.62; Estimated Glomerular Filt Rate 66 ml/min
[2023-08-30 15:44] LABS: Blood Urea Nitrogen* 20 mg/dL (7-30); Calcium* 8.2 mg/dL (8.4-10.6); Glucose* 156 mg/dL (60-115)
--- NOTE | 2023-08-30 16:05 | US_ITS ---
Patient: SHYAM SANDS Facility:?[facility] Patient ID:?[id number] Site Patient ID:?[id number]. Site :?[id number] Study:?US-Abdomen renal-08/30/2023 4:51:03 PM Ordering Physician:Mohit LIVINGSTON Final Report: Indication: Hematuria Technique: Renal ultrasound utilizing grayscale and color Doppler Comparison: CT abdomen/pelvis on August 13, 2023 Findings: Right kidney: Measures 9.9 centimeters in length with extensive cortical atrophy. There is moderate right-sided hydronephrosis with partially visualized right nephroureteral stent. No renal calculi. Left kidney: Measures 11.7 centimeters in length. No renal calculi or hydronephrosis. Bladder: Decompressed with a Tabares catheter. Impression: 1. No renal calculi. 2. Stable right hydronephrosis with partially visualized right sided nephroureteral stent. 3. The bladder is decompressed with a Tabares catheter. Dictated by Bobby Barrera MD @ 08/30/2023 5:30:22 PM Signed by:?Bobby Barrera MD @08/30/2023 5:30:22 PM (Electronic Signature)
--- OUTSIDE RECORDS SUMMARY | 2023-08-30 16:45 | XMS_ITS | Referral Summary ---
Author Name Unknown Organization [facility] Address [address] [place] [id number] Care Team Providers Care Clinical Informatics Strategist Name Role Phone Cesar Mccollum Primary Care Provider Allergies No known active allergies Medications Medication [...] on file Medical Devices Implanted Type Area Telecommunications Consultant Device Identifier Shelf Expiration Date Model / Serial / Lot Stent Ureteral Polaris Ultra [id number] - [id number] Implanted:Qty : 1 on 02/08/2022 by Nicola Ware MD at [facility] Stent Right: Ureter [employer] [id number] 10/08/2024 [id number] Explanted Type Area Telecommunications Consultant Device Identifier Shelf Expiration Date Model / Serial / Lot Stent Came Out Of The Right Ureter Explanted:Qty: 1 on 02/08/2022 by Nicola Ware MD at [facility] Right: Urethra Advance Directives For more information, please contact: [phone] Documents on File Type Date Recorded Patient Specialty Person Expl anation Advance Directives and Living Will 02/17/2022 Health Care Directiv e 05/15/2021 Healthcare Agents on File Name Relationship Healthcare Agent Relationship Communication Mindy Waterman Daughter [employer] te Health Care Agent Meera Vega Spouse Health Care Agent [id number] (Home) Favio Vega Son [employer] Altern ate Health Care Agent Tereso Vega Son [employer] Alterna te Health Care Agent Care Teams Clinical Informatics Strategist Relationship Specialty Start Date End Date Cesar Mccollum [address] [place] [address] PCP - General Family Medicine 11/22/22
--- OUTSIDE RECORDS SUMMARY | 2023-08-30 16:45 | XMS_ITS | Clinical Summary ---
Author Name Unknown Organization [facility] Address [address] [place] [address] Care Team Providers Care Motion Picture Operator Name Role Phone Elsewhere, Pcp Primary Care Provider Unavailabl e Source Comments Patient records contain information from all sites at [facility]. For routine questions regarding patient records, call [phone] during business hours, M-F 8:00 AM - 5:00 PM Central Time. Record requests for emergency care only can be directed to [phone] at any time.[facility] Allergies No known active allergies Medications [...] Encounters Date Type Department Care Team Description 08/30/2023 Documentation Department of Urology in [place], [place] [address] [place] [phone] Corin Ring M.D. 08/30/2023 Intake [facility] 08/26/2023 Orders Only Department of Urology in [place], [place] [address] [place] [phone] Paula Hernandez M.D. 08/23/2023 12:45 AM CDT Ancillary Procedure Department of Nursing 08/15/2023 8:30 AM CDT Anesthesia Event [facility] OR [address] [place] [phone] Hayde Song M.D. 08/15/2023 7:55 AM CDT - 08/15/2023 11:23 AM CDT Surgery [facility] [address] [place] [phone] Boubacar Brock M.D. Palliative EXPLORATORY LAPAROTOMY, CYSTOTOMY CLOSURE, RIGHT URETERAL STENT EXCHANGE 08/13/2023 4:35 PM CDT Ancillary Procedure Department of Radiology in [place], [place] [address] [place] [phone] Carlos Alberto Henson M.D. 08/13/2023 3:42 PM CDT - 08/26/2023 4:11 PM CDT Hospital Encounter [facility], [facility], [facility], Sixth Floor [address] [place] [phone] Darnell Garcia M.D. Chow, George K, M.D. Decline Functional Status [R53.81] (Primary Dx); Hematuria [R31.9] Discharge Disposition: Home or Self Care 08/13/2023 Intake [facility] from Last 3 Months Social History Tobacco Use Types Packs/Day Years Used Date Smoking Tobacco: Never Smokeless Tobacco: Never Tobacco Cessation:Counseling Given: Not Answered [facility] Utilities Answer Date Recorded In the past 12 months has [employer] gas, oil, or water [employer] threatened to shut off services in your [...] your living situation today? [facility] 08/13/2023 Sex and [...] CDT Procedure visit Department of Urology in [place], [place] [address] [place] [address] Sima Venegas M.D. [address] [place] [address] Health Maintenance Due Date Last Done Comments Zoster Vaccines (1 of 2) 1989 Depression Screening (Annual PHQ-2) 04/11/2023 Fall Risk Screen (Annual) 04/11/2023 DTaP,Tdap,and Td Vaccines (2 - Td or Tdap) 09/07/2026 09/07/2016 Influenza Vaccine Completed 03/08/2023, 01/28/2022 COVID-19 Vaccine Completed 07/21/2023, , 09/13/2022, Additional history exists Pneumococcal vaccine (65+ years) Completed 07/21/19 24 Medical Devices Implanted Type Area Remote Sensing Scientist Device Identifier Shelf Expiration Date Model / Serial / Lot Clp Hrzn Ti 6 Clp Lg Orng - [id number] Implanted:Qt y: 1 on 08/15/2023 by Boubacar Brock M.D. at [facility] Hardware e.g. pins/screws /rods Abdomen Teleflex [employer]s [id number] 02/29/[id number] / / [id number] Clp Hrzn Ti 6 Clp Lg Orng - [id number] Implanted:Qt y: 1 on 08/15/2023 by Boubacar Brock M.D. at [facility] Hardware e.g. pins/screws /rods Abdomen Teleflex Me[employer]s [id number] 02/29/2028 [id number] / / [id number] 4 Clp Hrzn Ti 6 Clp Md Monty - [id number] Implanted:Qt y: 1 on 08/15/2023 by Boubacar Brock M.D. at [facility] Hardware e.g. pins/screws /rods Abdomen [employer] [id number] 03/13/2028 [id number] / / [id number] 1 Clp Hrzn Ti 6 Clp Md Monty - [id number] Implanted:Qt y: 1 on 08/15/2023 by Boubacar Brock M.D. at [facility] Hardware e.g. pins/screws /rods Abdomen [employer] [id number] 03/21/2028 [id number] / / [id number] 3 Stnt Uret Inl 6fx24 - [id number] Implanted:Qt y: 1 on 08/15/2023 by Jakob De Paz M.D. at [facility] Ureteral Stent N/A: Ureter [employer].Bard [id number] 11/18/2027 [id number] / / [id number] Procedures Procedure Name Priority Date/Time Associated Diagnosis [...] LINE INSERTION Routine 08/15/2023 9:51 AM CDT [place] US GUIDE VASC ACCESS Routine 08/15/2023 9:51 AM CDT [place] ARTL CATH/CNULA MONITOR PERC Routine 08/15/2023 9:51 [...] of3 resultswithin the time period is included. ABORh O Pos Not applicable 08/26/2023 7:16 AM CDT STRM Antibody Screen Negative Negative 08/26/2023 7:29 AM CDT STRM Type & Screen Expiration 08/29/2023 23:59 08/26/2023 7:16 AM CDT STRM Testing Location Marcio DEFAULT 08/26/2023 6:57 AM CDT STRM Blood (Blood, Venous) 08/26/2023 6:50 AM CDT 08/26/2023 6:57 AM CDT Paula Hernandez M.D. LAB BLOOD BANK TEST ORDERABLES [facility] [address] [place] [address], [facility] 200 [place] [address] * (ABNORMAL) Renal Function Panel (08/26/2023 3:20 [...] CDT Boubacar Brock M.D. LAB BLOOD ADD-ON [address] [address], [facility] [place] [address] * Heparin Anti-Xa Assay (08/26/2023 3:20 AM [...] BLOOD NON ADD -ON Performing Organization Address City/[facility]/ZIP Co de Phone Number [facility] [address] [place] [address], [facility] DTL [facility] 200 [place] [address] * (ABNORMAL) CBC without Differential (08/26/2023 3:20 [...] CDT Corin Ring M.D. LAB BLOOD ADD-ON [facility] [address] [place] [address] * Magnesium (08/26/2023 3:20 AM CDT) Only the most recent of6 resultswithin the time period is included. Magnesium, S 2.1 1.7 - 2.3 mg/dL 08/26/2023 4:04 AM CDT DT Blood (Blood, Venous) 08/26/2023 3:20 AM CDT 08/26/2023 3:50 AM CDT Boubacar Brock M.D. LAB BLOOD ADD-ON [facility] [address] [place] [address] * (ABNORMAL) Potassium (08/23/2023 9:58 PM CDT) Potassium, S 3.5(L) 3.6 - 5.2 mmol/L 08/23/2023 10:45 PM CDT DT Blood (Blood, Venous) 08/23/2023 9:58 PM CDT 08/23/2023 10:30 PM CDT Boubacar Brock M.D. LAB BLOOD ADD-ON [facility] [address] [place] [address] * (ABNORMAL) Phosphorus Inorganic (08/23/2023 9:58 PM CDT) Only the most recent of2 resultswithin the time period is included. Phosphorus (Inorganic), S 2.1(L) 2.5 - 4.5 mg/dL 08/23/2023 10:45 PM CDT DTL Blood (Blood, Venous) 08/23/2023 9:58 PM CDT 08/23/2023 10:30 PM CDT Paula Hernandez M.D. LAB BLOOD ADD-ON Performing Organization Address City/[facility]/ZIP Co de Phone Number [facility] 200 [place] [address], [facility] 200 [place] [address] * Triglycerides (08/23/2023 3:42 AM CDT) Only [...] M.D. LAB BLOOD ADD-ON Performing Organization Address [facility] Co de Phone Number [facility] [address] [place] [address], [facility] [address] [place] [address] * Buttock/Sacrum-Nursing Image Exam (08/23/2023 12:44 AM [...] RAD IMAGI NG PROCEDURES Performing Organization Address City/[facility]/ZIP Co de Phone Number IIWY NA * Glucose, POCT (08/22/2023 11:38 PM CDT) Glucose, POCT, B 117 70 - 140 mg/dL 08/23/2023 1:06 AM CDT PCLX Site Capillary 08/23/2023 1:06 AM CDT PCLX Last Intake NPO 08/23/2023 1:06 AM CDT PCLX Blood 08/22/2023 11:3 8 PM CDT 08/23/2023 1:06 AM CDT Unknown Provider LAB POCT ORDERABLES- MANUAL POC [facility] [address] [place] [address], [facility] PCLX [facility] POC [address] [place] [address] * CT Abdomen Pelvis without IV Contrast [...] colon likelyrepresenting mild proctocolitis. Paula Hernandez M.D. [facility] CT PROCEDURES * Creatinine, Body Fluid (08/22/2023 [...] transport rates. All other fluids refer to [email or web address] for further interpretive information. This test has been modified from the matcher leather parts's instructions. Its performance characteristics were determined by [facility] in a manner consistent with CLIA requirements. This test has not been cleared or approved by the U.S. Food and Drug Administration. Fluid Type, Creatinine Fluid, Abdomen 08/22/2023 3:52 PM CDT DTL Fluid (Abdomen) 08/22/2023 3 :30 PM CDT 08/22/2023 6:36 PM CDT Corin Ring M.D. LAB BODY FLUIDS AND STOOLS ORDERABLES [facility] [address] [place] [address], [facility] [address] [place] [address] * IR PICC Line Placement (08/22/2023 8:35 AM CDT) Anatomical Region Laterality Modality Chest, Pelvis, Abdomen, Vasc ular Interventional RST LOS, Vascular Interventional ARZ LOS, Vascular Interventional FLA LOS N/A X-Ray Angiography Impressions 08/22/2023 9:05 AM CDT Placement of a right IJ vein single-lumen 4 Greek tunneled PowerPICC ready for immediate use. NR [...] advanced into the IVC and a 4 Greek dilator advanced over the wire and attached to a one-way stopcock. A suitable exit site in the right anterior chest was anesthetized and a small incision made. A 4 Greek single-lumen PowerPICC was then tunneled from the [...] Wireadvanced into the IVC and a 4 Greek dilator advanced over the wire andattached to a one-way stopcock. A suitable exit site in the right anteriorchest was anesthetized and a small incision made. A 4 Greek single-lumen PowerPICC was then tunneled fromthe skin [...] of a right IJ vein single-lumen 4 Greek tunneled PowerPICCready for immediate use. NR Kimi Vieira M.D., M.S. IMG KESHIA LAWSON * (ABNORMAL) APTT (Activated Partial Thromboplastin Time) (08/22/2023 2:40 AM CDT) Only the most recent of10 resultswithin the time period is included. Activated Partial Thrombopl Time, P 64(H) 25 - 37 sec 08/22/2023 3:12 AM CDT STMA Blood (Blood, Venous) 08/22/2023 2:40 AM CDT 08/22/2023 3:01 AM CDT Latisha Whitehead M.D. LAB BLOOD ADD-ON [facility] [address] [place] [address], [facility] STMA [facility] [address] * (ABNORMAL) Comprehensive Metabolic Panel (08/22/2023 2:40 AM CDT) [facility] Potassium, S 3.2(L) 3.6 - 5.2 mmol/L [...] CDT Latisha Whitehead M.D. LAB BLOOD ADD-ON [facility] [address] [place] [address], [facility] [address] [place] [address] * (ABNORMAL) Basic Metabolic Panel (08/21/2023 7:32 [...] LAB BLOOD ADD-O N Performing Organization Address [facility] Co de Phone Number [facility] [address] [place] [address], [place] DTL [facility] [address] [place] [address] * Place peripherally inserted central catheter (PICC) [...] M.D. PROCEDURE/MINOR SURGICAL ORDERABLES Performing Organization Address [facility] Co de Phone Number ODAL NA * DX Abdomen Portable Anterior Posterior [...] hydronephrosis of the atrophic right kidney. Lizette CHOUDHARY CT PROCEDUR ES * US Lower Extremity [...] and management can be found on the [employer] site. Link [email or web address] Findings discussed with ??Tayler Greenwood, ?? ([id number]) on 08/17/2023 7:11 PM. Procedure Note Jj [...] can be found on theAskMayoExpert site. [email or web address] Findings discussed with Tayler Greenwood MD ([id number]) on 08/17/2023 7:11 PM. IMPRESSION: 1. 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 2. No acute left-sided DVT. Corin CHOUDHARY US PROCEDURES * ECG 12 Lead (08/16/2023 9:43 PM CDT) Only the most recent of2 resultswithin the time period is included. Ventricular Rate ECG/Min 134 BPM MUSE KY Interval 136 ms MUSE QRSD Interval 76 ms MUSE QT Interval 298 ms MUSE QTC Interval 445 ms MUSE P [place] 29 degrees MUSE R [place] -6 degrees MUSE T Wave [place] 21 degrees MUSE 08/16/2023 9:43 PM CDT [...] Henson M.D. LAB BLOOD ADD-ON [facility] [address] [place] [address], [facility] DTL [facility] [address] [place] [address] DHPM [facility] [address] [place] [address] * DX Abdomen 1 View (08/15/2023 1:19 [...] LAB BLOOD NON ADD-O N [facility] [address] [place] [address], [facility] 200 [place] [address] * Patient Status (08/15/2023 11:56 AM CDT) Only the most recent of2 resultswithin the time period is included. Temperature 36.2 37.0 deg C 08/15/2023 12:04 PM CDT STMA Blood 08/15/2023 11:5 6 AM CDT 08/15/2023 12:03 PM CDT Rae Gonzalez APRN, EMPLOYEE SERVICES MANAGER, DNAP LAB BLOO D NON ADD-ON Performing Organization Address City/[facility]/ZIP Co de Phone Number [facility] [address] [place] [address], [facility] [address] [place] [address] * Sodium, B (08/15/2023 11:56 AM CDT) Only the most recent of2 resultswithin the time period is included. Sodium, B 135 135 - 145 mmol/L 08/15/2023 12:06 PM CDT STMA Blood (Blood, Arterial Line) 08/15/2023 11:56 AM CDT 08/15/2023 12:03 PM CDT Hayde Song M.D. LAB BLOOD NON ADD-O N [facility] [address] [place] [address], [facility] [address] [place] [address] * (ABNORMAL) Blood Gas with Coox, Arterial (08/15/2023 11:56 AM CDT) Only the most recent of2 resultswithin the time period is included. [facility] Signature pO2 166(H) 83 - 108 mm Hg [...] LAB BLOOD NON ADD-O N [facility] [address] [place] [address], [facility] [address] [place] [address] * Potassium, Blood (08/15/2023 11:56 AM CDT) Only the most recent of2 resultswithin the time period is included. Potassium, B 4.3 3.6 - 5.2 mmol/L 08/15/2023 12:07 PM CDT STMA Blood (Blood, Arterial Line) 08/15/2023 11:56 AM CDT 08/15/2023 12:03 PM CDT Hayde Song M.D. LAB BLOOD NON ADD-O N Performing Organization Address City/[facility]/ZIP Co de Phone Number [facility] [address] [place] [address] * (ABNORMAL) Glucose, Whole Blood (08/15/2023 11:56 AM CDT) Only the most recent of2 resultswithin the time period is included. Glucose 144(H) 70 - 140 mg/dL 08/15/2023 12:06 PM CDT [facility] Blood (Blood, Arterial Line) 08/15/2023 11:56 AM CDT 08/15/2023 12:03 PM CDT Hayde Song M.D. LAB BLOOD ADD-ON Performing Organization Address City/[facility]/ZIP Co de Phone Number [facility] [address] [place], [place] [address] [place] [address] 200 [place] [address] * (ABNORMAL) Calcium, Ionized (08/15/2023 11:56 AM CDT) Only the most recent of2 resultswithin the time period is included. Calcium, Ionized, B 4.53(L) 4.65 - 5.30 mg/dL 08/15/2023 12:07 PM CDT STMA Blood (Blood, Arterial Line) 08/15/2023 11:56 AM CDT 08/15/2023 12:03 PM CDT Hayde Song M.D. LAB BLOOD NON ADD-O N [facility] [address] [place] [address], [place] STMA [facility] [address] [place] [address] * FL Fluoro Less Than 1 Hour (08/15/2023 11:22 AM CDT) Narrative 152 HOS LOS RST - 08/15/2023 11:24 AM CDT This exam does not require a radiologist review or interpretation. Please refer to the patient's medical record on this date for clinical details. Boubacar Brock M.D. IMG FLUOROSCOPY PROC EDURES Performing Organization Address City/[facility]/ZIP Co de Phone Number 152 HOS LOS RST * [place] ARTL CATH/CNULA MONITOR PERC, [place] US GUIDE VASC ACCESS, LDA ANE ARTERIAL LINE INSERTION, MC ANE INVASIVE CATH WITH ULTRASOUND (08/15/2023 9:51 AM CDT) Narrative Rae Gonzalez APRN, CRNA DNAJay - 08/15/2023 9:51 AM CDT Rae Gonzalez APRN, CRNA DNAJay ? 08/15/2023 ??9:52 AM Invasive Catheter Date/Time: [...] AM CDT) Narrative Rae Gonzalez APRN, CRNA DNAP - 08/15/2023 8:40 AM CDT Rae [...] ETT location: oral VL device: glide scope Hague scope blade size: 4 Tube size: 7.5 [...] Source Site : Blood Narrative [facility] - 08/20/2023 6:02 AM CDT Received Bactec aerobic and Bactec anaerobic bottles Carlos Alberto Henson M.D. LAB MICROBIOLOGY - G ENERAL ORDERABLES [facility] [address] [place] [address], [facility] DTL [facility] [address] [place] [address] * CT Cystogram without IV Contrast (08/13/2023 [...] Henson M.D. LAB BLOOD ADD-ON [facility] [address] [place] [address], [facility] [address] [place] [address] * Prothrombin Time (PT) (08/13/2023 5:27 PM CDT) Prothrombin Time, P 12.4 9.4 - 12.5 sec 08/13/2023 5:38 PM CDT [facility] 1.1 0.9 - 1.1 08/13/2023 5:38 PM CDT [facility] Comment: ----ADDITIONAL INFORMATION---- Standard intensity warfarin therapeutic range: 2.0 to 3.0 ?? High intensity warfarin therapeutic range: 2.5 to 3.5 Blood (Blood, Venous) 08/13/2023 5:27 PM CDT 08/13/2023 5:31 PM CDT Carlos Alberto Henson M.D. LAB BLOOD ADD-ON Performing Organization Address City/[facility]/ZIP Co de Phone Number [facility] [address] [place], [place] [address] [place] [address] 200 [place] [address] * Osmolality, Urine (08/13/2023 5:07 PM CDT) Pathologist [facility] Osmolality, U 351 150 - 1150 mOsm/kg 08/13/2023 7:46 PM CDT DTL Urine 08/13/2023 5:07 PM CDT 08/13/2023 5:45 PM CDT Carlos Alberto Henson M.D. LAB URINE ORDERABLES [facility] [address] [place] [address], [facility] [address] [place] [address] * (ABNORMAL) Dipstick, Urine (08/13/2023 5:07 PM [...] CDT 08/13/2023 5:45 PM CDT Carlos Alberto Hensno M.D. LAB URINE ORDERABLES Performing Organization Address City/[facility]/ZIP Co de Phone Number [facility] [address] [place] [address] * pH, Random, Urine (08/13/2023 5:07 PM CDT) pH, Random, U 7.0 4.5 - 8.0 08/13/2023 7:46 PM CDT DTL Urine 08/13/2023 5:07 PM CDT 08/13/2023 5:45 PM CDT Carlos Alberto Henson M.D. LAB URINE ORDERABLES [facility] 200 [place] [address] * (ABNORMAL) Microscopic Manual (08/13/2023 5:07 PM [...] Henson M.D. LAB URINE ORDERABLES [facility] [address] [place] [address], [facility] [address] [place] [address] * (ABNORMAL) Bacterial Culture, Aerobic + Susceptibility, [...] Carlos Alberto Henson M.D. LAB MICROBIOLOGY - [facility] ORDERABLES [address] [address], [facility] DTL [address] [address] * (ABNORMAL) Urinalysis, with Microscopic: Urine, Midstream [...] CDT DTL Predicted 24 [place] [address](H) <229 mg/24 h 08/13/2023 8:50 PM CDT DTL Predicted Range [id number] mg/24 h 08/13/2023 8:50 PM CDT DTL Comment Micro done on <2.5 mL 08/13/2023 7:55 PM CDT DTL Urine (Urine, Midstream) 08/13/2023 5:07 PM CDT 08/13/2023 5:44 PM CDT Carlos Alberto Henson M.D. LAB URINE ORDERABLES [facility] [address] [place] [address], [place] DTL [facility] [address] [place] [address] * Interpretation of Outside CT Abdomen and [...] CT Body (08/13/2023 4:35 AM CDT) Narrative IIWY - 08/13/2023 12:29 PM CDT This order [...] Advance Directives For more information, please contact: [phone] * Full Code (Latest Code Status on File) Date Activated Date Inactivated Comments 08/13/2023 4:30 PM 08/26/2023 6:58 PM Question Answer Comments Full Code: Discussed Care Teams Motion Picture Operator Relationship Specialty Start Date End Date Elsewhere, Pcp PCP - General Internal Medicine 08/13/23
--- OUTSIDE RECORDS SUMMARY | 2023-08-30 16:45 | XMS_ITS | Clinical Summary ---
Author Name Unknown Organization [facility] Address [address] [place] [address] Care Team Providers Care Medical Records Administrator Name Role Phone Cesar Mccollum Primary Care Provider [phone] Allergies No known active allergies Medications Medication [...] this topic Medical Devices Implanted Type Area Welding Machine Operator Submerged Arc Device Identifier Shelf Expiration Date Model / Serial / Lot Stent Ureteral Polaris Ultra [id number] - [id number] Implanted:Qty : 1 on 02/08/2022 by Nicola Ware MD at [facility] Stent Right: Ureter [employer] [id number] 10/08/2024 [id number] Explanted Type Area Welding Machine Operator Submerged Arc Device Identifier Shelf Expiration Date Model / Serial / Lot Stent Came Out Of The Right Ureter Explanted:Qty: 1 on 02/08/2022 by Nicola Ware MD at [facility] Right: Urethra Advance Directives For more information, please contact: [phone] Documents on File Type Date Recorded Patient Pipefitter Helper Expl anation Advance Directives and Living Will 02/17/2022 Health Care Directiv e 05/15/2021 Healthcare Agents on File Name Relationship Healthcare Agent Relationship Communication Mindy Waterman Daughter Co-[employer] Alterna te Health Care Agent Meera Vega Spouse Health Care Agent [phone] (Home) Favio Vega Son Co-[employer] Altern ate Health Care Agent Tereso Vega Son [employer] Alterna te Health Care Agent Care Teams Medical Records Administrator Relationship Specialty Start Date End Date Cesar Mccollum [address] [place] [address] PCP - General Family Medicine 11/22/22
--- OUTSIDE RECORDS SUMMARY | 2023-08-30 16:46 | XMS_ITS ---
Author Name Unknown Organization [facility] Address [address] [place] [address] Care Team Providers Care Biomedical Electronics Technician Name Role Phone Elsewhere, Pcp Primary Care [...] On Elapsed Days Session Dose Total Dose [id number] 04/28/2020 32 300 cGy 6,000 cGy Lifetime Dose Tracking * Chemical Lifetime Dose Automatic Entry Manual Entr y Radiation 8.35 mGy 8.35 mGy 0 mGy Fluoro Time 0.83 minutes 0.83 minutes 0 minutes DAP (uGy-m2) 257.44 uGy-m2 257.44 uGy-m2 0 uGy-m2
--- OUTSIDE RECORDS SUMMARY | 2023-08-30 16:46 | XMS_ITS | Encounter Summary ---
Author Name Unknown Organization [facility] Address [address] [place] [address] Care Team Providers Care Housing Counselor Name Role Phone Elsewhere, Pcp Primary Care Provider Unavailabl e Reason for Referral * Outpatient (Routine) - Authorized Specialty Diagnoses / Procedures Referred By Leyla t Referred To Contact Urology Paula Hernandez M.D. [address] [place] [address] [facility] CHIEF RESIDENT [facility] Referral ID Status Reason Start Date Expiration Date V isits Requested Visits Authorized [id number] Authorized 08/26/2023 02/24/2025 1 1 Scheduling Instructions staple removal SMOP w tonie or jason Encounter Details Date Type Department Care Team (Late st Contact Info) Description 08/26/2023 Orders Only Department of Urology in [place], [place] [address] [place] [address] Paula Hernandez M.D. [address] [place] [address] Social History Tobacco Use Types Packs/Day Years [...] your living situation today? I have a [facility] place to live 08/13/2023 Sex and Gender Information Value Date Recorded Sex Assigned at Not on file Gender Identity Not on file Sexual Orientation Not on file documented as of this encounter Plan of Treatment Upcoming Encounters Date Type Department Care Team (Late st Contact Info) Description 09/07/2023 11:00 AM CDT Procedure visit Department of Urology in [place], [place] [address] [place] [address] Jason Venegas M.D. [address] [place] [address] Scheduled Referrals Name Type Priority Associated Diagnoses Orde r Schedule Urology office visit (clinic) Outpatient Referral Routine Expected: 09/09/2023, Expires: 11/25/2024 documented as of this encounter Visit Diagnoses Not on filedocumented in this encounter Care Teams Housing Counselor Relationship Specialty Start Date End Date Elsewhere, Pcp PCP - General Internal Medicine 08/13/23 documented as of this encounter
--- OUTSIDE RECORDS SUMMARY | 2023-08-30 16:46 | XMS_ITS | Referral Summary ---
Author Name Unknown Organization [facility] Address [address] [place] [address] Care Team Providers Care Art Installer Name Role Phone Elsewhere, Pcp Primary Care Provider Unavailabl e Source Comments Patient records contain information from all sites at [facility]. For routine questions regarding patient records, call [phone] during business hours, M-F 8:00 AM - 5:00 PM Central Time. Record requests for emergency care only can be directed to [phone] at any time.[facility] Encounters Date Type Department Care Team Description 08/30/2023 Documentation Department of Urology in [place], [place] [address] [place] [address] Corin Ring M.D. 08/30/2023 Intake [facility] 08/26/2023 Orders Only Department of Urology in [place], [place] [address] [place] [address] Paula Hernandez M.D. 08/13/2023 3:42 PM CDT - 08/26/2023 4:11 PM CDT Hospital Encounter [facility], [facility], [facility], Sixth Floor [address] [place] [address] Darnell Garcia M.D. Chow, George K, M.D. Decline Functional Status [R53.81] (Primary Dx); Hematuria [R31.9] Discharge Disposition: Home or Self Care 08/23/2023 12:45 AM CDT Ancillary Procedure Department of Nursing 08/15/2023 8:30 AM CDT Anesthesia Event [facility] [address] [place] [address] Hayde Song M.D. 08/15/2023 7:55 AM CDT - 08/15/2023 11:23 AM CDT Surgery [facility] OR [address] [place] [address] Boubacar Brock M.D. Palliative EXPLORATORY LAPAROTOMY, CYSTOTOMY CLOSURE, RIGHT URETERAL STENT EXCHANGE 08/13/2023 4:35 PM CDT Ancillary Procedure Department of Radiology in [place], [place] [address] [place] [address] Carlos Alberto Henson M.D. 08/13/2023 Intake RST [...] Tobacco: Never Tobacco Cessation:Counseling Given: Not Answered [facility] Utilities Answer Date Recorded In the past 12 months has [employer], oil, or water [employer] threatened to shut off services in your [...] your living situation today? I have a [facility] place to live 08/13/2023 Sex and [...] CDT Procedure visit Department of Urology in [place], [place] [address] [place] [address] Sima Venegas M.D. [address] [place] [address] Medical Devices Implanted Type Area Security Risk Analyst Device Identifier Shelf Expiration Date Model / Serial / Lot Clp Hrzn Ti 6 Clp Lg Orng - [id number] Implanted:Qt y: 1 on 08/15/2023 by Boubacar Brock M.D. at [facility] Hardware e.g. pins/screws /rods Abdomen Teleflex [employer] [id number] 02/29/2028 [id number] / / [id number] Clp Hrzn Ti 6 Clp Lg Orng - [id number] Implanted:Qt y: 1 on 08/15/2023 by Boubacar Brock M.D. at [facility] Hardware e.g. pins/screws /rods Abdomen Teleflex [employer] [id number] 02/29/2028 [id number] / / [id number] 4 Clp Hrzn Ti 6 Clp Md Monty - [id number] Implanted:Qt y: 1 on 08/15/2023 by Boubacar Brock M.D. at [facility] Hardware e.g. pins/screws /rods Abdomen Teleflex [employer]ner[employer] [id number] 03/13/2028 [id number] / / [id number] 1 Clp Hrzn Ti 6 Clp Md Monty - [id number] Implanted:Qt y: 1 on 08/15/2023 by Boubacar Brock M.D. at [facility] Hardware e.g. pins/screws /rods Abdomen [employer] [id number] 03/21/2028 [id number] / / [id number] Stnt Uret Inl 6fx24 - [id number] Implanted:Qt y: 1 on 08/15/2023 by Jakob De Paz M.D. at [facility] Ureteral Stent N/A: Ureter C.R.Bard [id number] 11/18/2027 [id number] / / [id number] Procedures Procedure Name Priority Date/Time Associated Diagnosis [...] LINE INSERTION Routine 08/15/2023 9:51 AM CDT [place] US GUIDE VASC ACCESS Routine 08/15/2023 9:51 AM CDT [place] ARTL CATH/CNULA MONITOR PERC Routine 08/15/2023 9:51 [...] 08/26/2023 7:16 AM CDT STRM Testing Location [place] DEFAULT 08/26/2023 6:57 AM CDT STRM Blood (Blood, Venous) 08/26/2023 6:50 AM CDT 08/26/2023 6:57 AM CDT Paula Hernandez M.D. LAB BLOOD BANK TEST ORDERABLES [facility] [address] [place] [address], [facility] STRM [facility] [address] [place] [address] * (ABNORMAL) Renal Function Panel (08/26/2023 3:20 AM CDT) Only the most recent of4 resultswithin the time period is included. Pathologist [facility] Potassium, S 4.4 3.6 - 5.2 mmol/L [...] M.D. LAB BLOOD ADD-ON Performing Organization Address City/[facility]/ZIP Co de Phone Number [facility] [address] [place] [address], [facility] [address] [address] * Heparin Anti-Xa Assay (08/26/2023 3:20 AM [...] BLOOD NON ADD -ON Performing Organization Address City/[facility]/ZIP Co de Phone Number [facility] [address] [place] [address], [facility] DTL [facility] [address] [place] [address] * (ABNORMAL) CBC without Differential (08/26/2023 3:20 AM CDT) Only the most recent of9 resultswithin the time period is included. Pathologist [facility] Hemoglobin 7.4(L) 13.2 - 16.6 g/dL 08/26/2023 [...] CDT Corin Ring M.D. LAB BLOOD ADD-ON [facility] [address] [place] [address], [facility] [address] [place] [address] * Magnesium (08/26/2023 3:20 AM CDT) Only the most recent of6 resultswithin the time period is included. Pathologist [facility] Magnesium, S 2.1 1.7 - 2.3 mg/dL 08/26/2023 4:04 AM CDT DTL Blood (Blood, Venous) 08/26/2023 3:20 AM CDT 08/26/2023 3:50 AM CDT Boubacar Brock M.D. LAB BLOOD ADD-ON [facility] [address] [place] [address] * (ABNORMAL) Potassium (08/23/2023 9:58 PM CDT) Potassium, S 3.5(L) 3.6 - 5.2 mmol/L 08/23/2023 10:45 PM CDT DT Blood (Blood, Venous) 08/23/2023 9:58 PM CDT 08/23/2023 10:30 PM CDT Boubacar Brock M.D. LAB BLOOD ADD-ON Performing Organization Address City/[facility] Co de Phone Number [facility] [address] [place] [address] * (ABNORMAL) Phosphorus Inorganic (08/23/2023 9:58 PM CDT) Only the most recent of2 resultswithin the time period is included. Phosphorus (Inorganic), S 2.1(L) 2.5 - 4.5 mg/dL 08/23/2023 10:45 PM CDT DT Blood (Blood, Venous) 08/23/2023 9:58 PM CDT 08/23/2023 10:30 PM CDT Paula Hernandez M.D. LAB BLOOD ADD-ON [facility] [address] [place] [address] * Triglycerides (08/23/2023 3:42 AM CDT) Only [...] M.D. LAB BLOOD ADD-ON Performing Organization Address City/[facility] Co de Phone Number [address] [address], [facility] [place] [address] * Buttock/Sacrum-Nursing Image Exam (08/23/2023 12:44 AM [...] RAD IMAGI NG PROCEDURES Performing Organization Address [facility] Co de Phone Number [facility] NA * Glucose, POCT (08/22/2023 11:38 PM CDT) Glucose, POCT, B 117 70 - 140 mg/dL 08/23/2023 1:06 AM CDT PCLX Site Capillary 08/23/2023 1:06 AM CDT PCLX Last Intake NPO 08/23/2023 1:06 AM CDT PCLX Blood 08/22/2023 11:3 8 PM CDT 08/23/2023 1:06 AM CDT Unknown Provider LAB POCT ORDERABLES- MANUAL POC [facility] [address] [place] [address], [place] PCLX [facility] [place] POC [address] [place] [address] * CT Abdomen Pelvis without IV Contrast [...] transport rates. All other fluids refer to www.[employer].com for further interpretive information. This test has been modified from the tube builder airplane's instructions. Its performance characteristics were determined by [facility] in a manner consistent with CLIA requirements. This test has not been cleared or approved by the U.S. Food and Drug Administration. Fluid Type, Creatinine Fluid, Abdomen 08/22/2023 3:52 PM CDT DTL Fluid (Abdomen) 08/22/2023 3 :30 PM CDT 08/22/2023 6:36 PM CDT Corin Ring M.D. LAB BODY FLUIDS AND STOOLS ORDERABLES [facility] [address] [place] [address], [place] DTL [facility] [address] [place] [address] * IR PICC Line Placement (08/22/2023 8:35 AM CDT) Anatomical Region Laterality Modality Chest, Pelvis, Abdomen, Vasc ular Interventional RST LOS, Vascular Interventional ARZ LOS, Vascular Interventional FLA LOS N/A X-Ray Angiography Impressions 08/22/2023 9:05 AM CDT Placement of a right IJ vein single-lumen 4 [place]er tunneled PowerPICC ready for immediate use. NR [...] advanced into the IVC and a 4 [place] dilator advanced over the wire and attached to a one-way stopcock. A suitable exit site in the right anterior chest was anesthetized and a small incision made. A 4 [place] single-lumen PowerPICC was then tunneled from the [...] Wireadvanced into the IVC and a 4 [place] dilator advanced over the wire andattached to a one-way stopcock. A suitable exit site in the right anteriorchest was anesthetized and a small incision made. A 4 [place] single-lumen PowerPICC was then tunneled fromthe skin [...] of a right IJ vein single-lumen 4 [place] tunneled PowerPICCready for immediate use. NR Kimi Vieira M.D., M.S. [facility] KESHIA LAWSON * (ABNORMAL) APTT (Activated Partial Thromboplastin Time) (08/22/2023 2:40 AM CDT) Only the most recent of10 resultswithin the time period is included. Pathologist [facility] Activated Partial Thrombopl Time, P 64(H) 25 - 37 sec 08/22/2023 3:12 AM CDT STMA Blood (Blood, Venous) 08/22/2023 2:40 AM CDT 08/22/2023 3:01 AM CDT Latisha Whitehead M.D. LAB BLOOD ADD-ON [facility] [address] [place] [address], [facility] [address] [place] [address] * (ABNORMAL) Comprehensive Metabolic Panel (08/22/2023 2:40 [...] CDT Latisha Whitehead M.D. LAB BLOOD ADD-ON [facility] [address] [place] [address], [facility] DTL [facility] [address] [place] [address] * (ABNORMAL) Basic Metabolic Panel (08/21/2023 7:32 [...] Lizette Harvey M.D. LAB BLOOD ADD-O N [facility] [address] [place] [address], [facility] DTH[facility] LaboratoriesD[facility] Health [facility] [address] [place] [address] * Place peripherally inserted central catheter (PICC) [...] cm with transition in the right pelvis (/). Pelvic surgical drain. Bladder catheter. Similar sacral [...] and management can be found on the [employer] site. Link [email or web address]/clinical-[email or web address]/[email or web address] Findings discussed with ??Tayler Greenwood, ?? ([id number]) on 08/17/2023 7:11 PM. Procedure Note Jj [...] be found on theAskMayoExpert site. [email or web address]/topic/clinical-[email or web address]/[email or web address] -[email or web address] 1725 Findings discussed with Tayler Greenwood MD ([id number]) on 08/17/2023 7:11 PM. IMPRESSION: 1. 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 2. No acute left-sided DVT. Corin Ring M.D. IMG US PROCEDURES * ECG 12 Lead (08/16/2023 9:43 PM CDT) Only the most recent of2 resultswithin the time period is included. Ventricular Rate ECG/Min 134 BPM MUSE AZ Interval 136 ms MUSE QRSD Interval 76 ms MUSE QT Interval 298 ms MUSE QTC Interval 445 ms MUSE P [place] 29 degrees MUSE R [place] -6 degrees MUSE T Wave [place] 21 degrees MUSE 08/16/2023 9:43 PM CDT [...] Carlos Alberto Henson M.D. LAB BLOOD ADD-ON [facility] [address] [place] [address], [place] DTL [facility] [address] [place] [address] [facility] [address] [place] [address] * DX Abdomen 1 View (08/15/2023 1:19 [...] Song M.D. LAB BLOOD NON ADD-O N [facility] [address] [place] [address], [facility] [address] [place] [address] * Patient Status (08/15/2023 11:56 AM CDT) Only the most recent of2 resultswithin the time period is included. Temperature 36.2 37.0 deg C 08/15/2023 12:04 PM CDT [facility] Blood 08/15/2023 11:5 6 AM CDT 08/15/2023 12:03 PM CDT Rae Gonzalez APRN, GAVIN, DNAP LAB BLOO D NON ADD-ON Performing Organization Address City/[facility] Co de Phone Number [facility] [address] [place] [address] * Sodium, B (08/15/2023 11:56 AM CDT) Only the most recent of2 resultswithin the time period is included. Pathologist [facility] Sodium, B 135 135 - 145 mmol/L 08/15/2023 12:06 PM CDT [facility] Blood (Blood, Arterial Line) 08/15/2023 11:56 AM CDT 08/15/2023 12:03 PM CDT Hayde Song M.D. LAB BLOOD NON ADD-O N [facility] [address] [place] [address], [facility] [address] [place] [address] * (ABNORMAL) Blood Gas with Coox, Arterial [...] Song M.D. LAB BLOOD NON ADD-O N [facility] [address] [place] [address], [facility] [address] [place] [address] * Potassium, Blood (08/15/2023 11:56 AM CDT) Only the most recent of2 resultswithin the time period is included. Potassium, B 4.3 3.6 - 5.2 mmol/L 08/15/2023 12:07 PM CDT STMA Blood (Blood, Arterial Line) 08/15/2023 11:56 AM CDT 08/15/2023 12:03 PM CDT Hayde Song M.D. LAB BLOOD NON ADD-O N [facility] [address] [place] [address] * (ABNORMAL) Glucose, Whole Blood (08/15/2023 11:56 AM CDT) Only the most recent of2 resultswithin the time period is included. Glucose 144(H) 70 - 140 mg/dL 08/15/2023 12:06 PM CDT STMA Blood (Blood, Arterial Line) 08/15/2023 11:56 AM CDT 08/15/2023 12:03 PM CDT Hyade Song M.D. LAB BLOOD ADD-ON Performing Organization Address City/[facility]/ZIP Co de Phone Number [facility] [address] [place] [address] * (ABNORMAL) Calcium, Ionized (08/15/2023 11:56 AM CDT) Only the most recent of2 resultswithin the time period is included. Calcium, Ionized, B 4.53(L) 4.65 - 5.30 mg/dL 08/15/2023 12:07 PM CDT [facility] Blood (Blood, Arterial Line) 08/15/2023 11:56 AM CDT 08/15/2023 12:03 PM CDT Hayde Song M.D. LAB BLOOD NON ADD-O N [facility] [address] [place] [address] * FL Fluoro Less Than 1 Hour (08/15/2023 11:22 AM CDT) Narrative 152 HOS LOS RST - 08/15/2023 11:24 AM CDT This exam does not require a radiologist review or interpretation. Please refer to the patient's medical record on this date for clinical details. Boubacar Brock M.D. IMG FLUOROSCOPY PROC EDURES 152 HOS LOS RST * AZ ARTL CATH/CNULA MONITOR PERC, [place] US GUIDE VASC ACCESS, LDA ANE ARTERIAL [...] AM Performed by: Rae Gonzalez APRN, CRNA DNAJay Authorized by: Hayde Song M.D. ?? Patient location during procedure: OR / Procedure Area PROCEDURE DETAILS: Mask difficulty assessment: not attempted Final airway type: video laryngoscope Laryngeal Manipulation: no ?? Final best view of glottic structures - Cormack/Lehane Score: grade 1 ETT location: oral VL device: glide scope Sims scope blade size: 4 Tube size: 7.5 [...] CDT Comment:Specimen Source Site : Blood Narrative [facility] - 08/20/2023 6:02 AM CDT Received Bactec aerobic and Bactec anaerobic bottles Carlos Alberto Henson M.D. [facility] [address] [place] [address], [facility] DTL [facility] [address] [place] [address] * CT Cystogram without IV Contrast (08/13/2023 [...] Carlos Alberto Henson M.D. LAB BLOOD ADD-ON [facility] [address] [place] [address], [facility] DTL [facility] [address] [place] [address] * Prothrombin Time (PT) (08/13/2023 5:27 PM CDT) Prothrombin Time, P 12.4 9.4 - 12.5 sec 08/13/2023 5:38 PM CDT STMA INR 1.1 0.9 - 1.1 08/13/2023 5:38 PM CDT [facility] Comment: ----ADDITIONAL INFORMATION---- Standard intensity warfarin therapeutic range: 2.0 to 3.0 ?? High intensity warfarin therapeutic range: 2.5 to 3.5 Blood (Blood, Venous) 08/13/2023 5:27 PM CDT 08/13/2023 5:31 PM CDT Carlos Alberto Henson M.D. LAB BLOOD ADD-ON Performing Organization Address City/[facility]/ZIP Co de Phone Number [facility] [address] [place] [address], [facility] [address] [place] [address] * Osmolality, Urine (08/13/2023 5:07 PM CDT) Osmolality, U 351 150 - 1150 mOsm/kg 08/13/2023 7:46 PM CDT DTL Urine 08/13/2023 5:07 PM CDT 08/13/2023 5:45 PM CDT Carlos Alberto Henson M.D. LAB URINE ORDERABLES Performing Organization Address [facility] Co de Phone Number [facility] [address] [place] [address], [facility] [address] [place] [address] * (ABNORMAL) Dipstick, Urine (08/13/2023 5:07 PM [...] 5:07 PM CDT 08/13/2023 5:45 PM CDT Narrative Authorizing Provider Result Abdifatah Henson M.D. LAB URINE ORDERABLES Performing Organization Address City/[facility] Co de Phone Number [facility] [address] [place] [address] * pH, Random, Urine (08/13/2023 5:07 PM CDT) pH, Random, U 7.0 4.5 - 8.0 08/13/2023 7:46 PM CDT DTL Urine 08/13/2023 5:07 PM CDT 08/13/2023 5:45 PM CDT Carlos Alberto Henson M.D. LAB URINE ORDERABLES Performing Organization Address [facility] de Phone Number [facility] [address] [place] [address], [facility] [address] [place] [address] * (ABNORMAL) Microscopic Manual (08/13/2023 5:07 PM [...] M.D. LAB URINE ORDERABLES Performing Organization Address City/[facility]/ZIP Co de Phone Number [facility] [address] [place] [address], [place] [facility] [address] [place] [address] * (ABNORMAL) Bacterial Culture, Aerobic + Susceptibility, [...] Carlos Alberto Henson M.D. LAB MICROBIOLOGY - [facility] ORDERABLES [facility] [address] [place] [address], [facility] [place] [address] [place] [address] * (ABNORMAL) Urinalysis, with Microscopic: Urine, Midstream [...] CDT DTL Predicted 24 [place] [address](H) <229 mg/24 h 08/13/2023 8:50 PM CDT DTL Predicted Range 29818-674748 mg/24 h 08/13/2023 8:50 PM CDT DTL Comment Micro done on <2.5 mL 08/13/2023 7:55 PM CDT DTL Urine (Urine, Midstream) 08/13/2023 5:07 PM CDT 08/13/2023 5:44 PM CDT Carlos Alberto Henson M.D. LAB URINE ORDERABLES [facility] [address] [place] [address], [place] DTL [facility] [address] [place] [address] * Interpretation of Outside CT Abdomen and [...] CT Body (08/13/2023 4:35 AM CDT) Narrative [facility] - 08/13/2023 12:29 PM CDT This order [...] Advance Directives For more information, please contact: [phone] * Full Code (Latest Code Status on File) Date Activated Date Inactivated Comments 08/13/2023 4:30 PM 08/26/2023 6:58 PM Question Answer Comments Full Code: Discussed Care Teams Art Installer Relationship Specialty Start Date End Date Elsewhere, Pcp PCP - General Internal Medicine 08/13/23
--- OUTSIDE RECORDS SUMMARY | 2023-08-30 16:46 | XMS_ITS | Encounter Summary ---
Author Name Unknown Organization [facility] Address [address] [place] [address] Care Team Providers Care Lung Splitter Name Role Phone Elsewhere, Pcp Primary Care Provider Unavailabl e Encounter Details Date Type Department Care Team (Latest Contact Info) Description 08/30/2023 Intake [facility] Social History Tobacco Use Types Packs/Day Years Used Date Smoking Tobacco: Never Smokeless Tobacco: Never [facility] Utilities Answer Date Recorded In the past 12 months has [employer], gas, oil, or water company threatened [...] your living situation today? I have a [facility] place [facility] live 08/13/2023 Sex and Gender Information Value Date Recorded Sex Assigned at Not on file Gender Identity Not on file Sexual Orientation Not on file documented as of this encounter Plan of Treatment Upcoming Encounters Date Type Department Care Team (Late st Contact Info) Description 09/07/2023 11:00 AM CDT Procedure visit Department of Urology in [place], [place] [address] [place] [address] Sima Venegas M.D. [address] [place] [address] documented as of this encounter Visit Diagnoses Not on filedocumented in this encounter Care Teams Lung Splitter Relationship Specialty Start Date End Date Elsewhere, Pcp PCP - General Internal Medicine 08/13/23 documented as of this encounter
--- OUTSIDE RECORDS SUMMARY | 2023-08-30 16:46 | XMS_ITS ---
Author Name Unknown Organization [facility] Address [address] [place] [address] Care Team Providers Care Jewel Oliving Machine Operator Name Role Phone Unavailable Unavailable Unavailable Surgery Details Not on file Complications Check Surgery Details section. Procedure Estimated Blood Loss Check Surgery Details section. Procedure Findings Check Surgery Details section. Procedure Specimens Taken Check Surgery Details section.
--- OUTSIDE RECORDS SUMMARY | 2023-08-30 16:46 | XMS_ITS | Encounter Summary ---
Author Name Unknown Organization [facility] Address [address] [place] [address] Care Team Providers Care Insulation Machine Operator Name Role Phone Elsewhere, Pcp Primary Care Provider Unavailabl e Encounter Details Date Type Department Care Team (Late st Contact Info) Description 08/30/2023 Documentation Department of Urology in [place], [place] [address] [place] [address] Corin Ring M.D. [address] [place] [address] Social History Tobacco Use Types Packs/Day Years Used Date Smoking Tobacco: Never Smokeless Tobacco: Never [facility] Utilities Answer Date Recorded In the past 12 months has [facility] electric, gas, oil, or water company [...] your living situation today? I have a [facility] place to live 08/13/2023 Sex and Gender Information Value Date Recorded Sex Assigned at Not on file Gender Identity Not on file Sexual Orientation Not on file documented as of this encounter Plan of Treatment Upcoming Encounters Date Type Department Care Team (Late st Contact Info) Description 09/07/2023 11:00 AM CDT Procedure visit Department of Urology in [place], [place] [address] [place] [address] Sima Venegas M.D. [address] [place] [address] documented as of this encounter Visit Diagnoses Not on filedocumented in this encounter Care Teams Insulation Machine Operator Relationship Specialty Start Date End Date Elsewhere, Pcp PCP - General Internal Medicine 08/13/23 documented as of this encounter
--- OUTSIDE RECORDS SUMMARY | 2023-08-30 16:47 | XMS_ITS | Encounter Summary ---
Author Name Unknown Organization [facility] Address [address] [place] [address] Care Team Providers Care Roof Foreman Name Role Phone Elsewhere, Pcp Primary Care Provider Unavailabl e Encounter Details Date Type Department Care Team (Late st Contact Info) Description 08/15/2023 8:30 AM CDT Anesthesia Event RST ROMB MAIN OR [address] [place] [address] Hayde Song M.D. [address] [place] [address] Anesthesia Record Procedure Summary Procedure Name Responsible [...] Tobacco: Never Smokeless Tobacco: Never [facility] Utilities Answer Date Recorded In the [...] your living situation today? I have a [facility] place to live 08/13/2023 Sex and Gender Information Value Date Recorded Sex Assigned at Not on file Gender Identity Not on file Sexual Orientation Not on file documented as of this encounter OR Notes * Anesthesia Postprocedure Evaluation - Nereida Liang M.D. 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 Location: [address] [facility] / [facility] in [place], [place] Providers: Boubacar Brock M.D. Pertinent components [...] patient / legal guardian, or through an foreign language interpreter; patient evaluated and approved for anesthesia / [...] CDT Procedure visit Department of Urology in [place], [place] [address] [place] [phone] Sima Venegas M.D. [address] [place] [phone] documented as of this encounter Procedures Procedure Name Priority Date/Time Associated Diagnosis Comments MC ANE INVASIVE CATH WITH ULTRASOUND Routine 08/15/2023 9:51 AM CDT LDA ANE ARTERIAL LINE INSERTION Routine 08/15/2023 9:51 AM CDT NE US GUIDE VASC ACCESS Routine 08/15/2023 9:51 AM CDT NE ARTL CATH/CNULA MONITOR PERC Routine 08/15/2023 9:51 AM CDT LDA ANE ENDOTRACHEAL AIRWAY Routine 08/15/2023 8:40 AM CDT documented in this encounter Results * NE ARTL CATH/CNULA MONITOR PERC, NE US GUIDE VASC ACCESS, LDA ANE ARTERIAL [...] ETT location: oral VL device: glide scope Salome scope blade size: 4 Tube size: 7.5 [...] mg documented in this encounter Care Teams Roof Foreman Relationship Specialty Start Date End Date Elsewhere, Pcp PCP - General Internal Medicine 08/13/23 documented as of this encounter
--- OUTSIDE RECORDS SUMMARY | 2023-08-30 16:47 | XMS_ITS | Encounter Summary ---
Author Name Unknown Organization [facility] Address [address] [place] [address] Care Team Providers Care Energy Infrastructure Engineer Name Role Phone Elsewhere, Pcp Primary Care Provider Unavailabl e Reason for Referral * Outpatient (Routine) - Authorized Specialty Diagnoses / Procedures Referred By Roseannac t Referred To Contact Diagnoses Hematuria Procedures URO Urethral cath removal & voiding trial (UCO/VT) Paula Hernandez M.D. [address] [place] [address] [facility] Referral ID Status Reason Start Date Expiration Date V isits Requested Visits Authorized [id number] Authorized 08/26/2023 08/25/2024 1 1 * Outpatient (Routine) - Authorized Specialty Diagnoses / Procedures Referred By Leyla rosenthal Referred To Contact Diagnoses Hematuria Procedures Cystogram URO Paula Hernandez M.D. [address] [place] [address] [facility] Referral ID Status Reason Start Date Expiration Date V isits Requested Visits Authorized [id number] Authorized 08/26/2023 08/25/2024 1 1 Encounter Details Date Type Department Care Team (Latest Contact Info) Description 08/13/2023 3:42 PM CDT - 08/26/2023 4:11 PM CDT Hospital Encounter [facility], [facility], [facility], Sixth Floor [address] [place] [id number] Darnell Garcia M.D. [address] [place] [address] Boubacar Brock M.D. [address] [place] [phone] Decline Functional Status [R53.81] (Primary Dx); Hematuria [R31.9] Discharge Disposition: Home or Self Care Social History Tobacco Use Types Packs/Day Years Used Date Smoking Tobacco: Never Smokeless Tobacco: Never [facility] Utilities Answer Date Recorded In the past 12 months has [facility] [place], gas, oil, or water [employer] threatened to shut off services in your [...] your living situation today? I have a [facility] place to live 08/13/2023 Sex and [...] AM CDT DISCHARGE SUMMARY BRIEF OVERVIEW Hospital: [facility] Discharge Provider: Boubacar Brock M.D. Primary Team: [facility] Urology Surgery - Chief Helga Rojas [...] Scheduled Appointments 08/26/2023 1:00 PM IR [facility] Radiology For appointment details refer to your [...] he felt completely obstructed and presented to [place] [facility]. [place] Course Attempted Tabares insertion but bladder irrigation was unsuccessful on multiple attempts. Hung 1U pRBC's. Given some volume and transferred to [facility] ICU ICU Course Urology consulted and [...] CONSULT TO NUTRITION SUPPORT IP CONSULT TO MENTAL HEALTH COORDINATOR WOUND CARE CONDITION AT DISCHARGE stable Discharge [...] he felt completely obstructed and presented to [place] [facility]. [place] [facility] Attempted Tabares insertion but bladder irrigation was unsuccessful on multiple attempts. Hung 1U pRBC's. Given some volume and transferred to [facility] ICU ICU Course Urology consulted and [...] PM CDT You were discharged from the [facility] Urology Surgery - Chief A - Blue Service. Please identify this service name if you call with questions after hospitalization. * Attachments The following attachments cannot be sent through Care Everywhere. * Bacitracin (On the skin) (Chinese) * Cefdinir (By mouth) (Chinese) * Trospium (By mouth) (Chinese) documented in this encounter Medications at Time [...] another provider. * Chary Diamond M.A., O.T., [facility] - 08/26/2023 10:21 AM CDT Occupational Therapy [facility] Inpatient Treatment SUBJECTIVE Patient's Name: Kalen Vega Referring/Attending Provider: Boubacar Brock M.D. Reason for Referral: Occupational Therapy Evaluation and Treatment History of Present Illness: Kalen Vega is a 83 y.o. male who was admitted to [facility] in [place] on 08/13/2023 for Hematuria [R31.9]. Precautions Other Precautions: Abdominal, fall precautions, monitor tachycardia and hypertension Pain Assessment: Pain not reported during session. Subjective Comments: Agreeable to therapy session. Team Communication: The patient's status was discussed and coordination of care occurred with RN, Family/Caregiver, nurse tech Family/Caregiver Present: son and [id number] OBJECTIVE Vital Signs: Vitals not formally assessed during session. No concerns during chart review and the patient had nosigns or symptoms consistent with vital changes during therapy session. Outcome Measures: -[facility] Inpatient Short Form: Putting on and [...] at or below 17 Clinicians answer the [facility] Inpatient Short Form based on observed [...] through pant leg first. - Adaptive Equipment: Road Monkey TOILETING - Assist Level: Maximal Assist - [...] (Edge of bed) - Assist Level: Modified [place] - Equipment: bed rail - Therapist Delivery: assessed, instructed, assisted - Adaptive Equipment: leg career technical supervisor trialed ; however, patient able to move [...] extremity (stiff knee) first. Recommended adaptive equipment: Road Monkey. Toileting - Patient instructed on accurate positioning [...] maximal exertion Handouts provided: Bathroom Safety Equipment [id number], Techniques to Help You Save Energy [id number] Patient was left in bedside chair with [...] Usama 6C -room 121 ASSESSMENT / PLAN AIRCRAFT RIGGING AND CONTROLS MECHANICstore loss prevention manager met with patient and son Kar to inform them of home health care acceptance for PT/OT. Patient's son Kar and [id number] will provide transportation at the time of discharge. PLAN Patient to discharge home with home health care. Home Medical Care - Admitted Since 08/13/2023 Service Provider Selected Services Address Phone Fax Patient Preferred [facility] [address] [facility] [phone] -- Speech Pathology Teacher: Ghazal NURSING: - Complete documentation in the [...] be provided by family--patient's son Kar and [id number]. 3. transfer and pumphouse operator chief recommended reaching out to family, friends, and neighbors for assistance. 4. transfer and pumphouse operator chief provided information regarding the dismissal process. Damaris [...] Reviewed with patient #1 Hematuria Please page [facility] ([phone]) or [facility] ([phone]) Nutrition Support Service pager with questions. * Emeterio Buchanan, P.T., D.P.T., [facility] - 08/25/2023 9:35 AM CDT Physical Therapy Inpatient Treatment SUBJECTIVE Patient's Name: Kalen Vega Referring/Attending Provider: Boubacar Brock M.D. Reason for Referral: Physical Therapy Evaluate and Treat History of Present Illness: Kalen Vega is a 83 y.o. male who was admitted to [facility] in [place] on 08/13/2023 for Hematuria [R31.9] Precautions Other [...] 3-5 steps with a railing?: A Little -[facility] Basic Mobility (V.2) Raw Score: 18 -[facility] Basic Mobility (V.2) Standardized Score: 41.05 Interpretation: Based on scoring guidelines using the raw score value: Those going to home had an average score at or above 18 Those going to facility had an average score at or below 17 Clinicians answer the -[facility] Inpatient Short Form based on observed patient activity and/or clinical judgement (ie. patient can be scored without physically performing each activity) Therapeutic Interventions: SIT TO STAND x3: Assistance Level: Supervision static safe house fit with adult there which they usually [place] with a difference educated fully know who [...] 08/25/2023 9:18 AM CDT Occupational Therapy [facility] Inpatient Treatment SUBJECTIVE Patient's Name: Kalen Vega Referring/Attending Provider: Boubacar Brock M.D. Reason for Referral: Occupational Therapy Evaluation and Treatment History of Present Illness: Kalen Vega is a 83 y.o. male who was admitted to [facility] in [place] on 08/13/2023 for Hematuria [R31.9]. Precautions Other Precautions: Abdominal, fall precautions, monitor tachycardia and hypertension Pain Assessment: Pain not reported during session. Subjective Comments: Agreeable to therapy session. Team Communication: The patient's status was discussed and coordination of care occurred with RN, PT OBJECTIVE Vital Signs: Vitals monitored throughout session; within normal ranges. Outcome Measures: [facility] Inpatient Short Form: Putting on and [...] including figure four technique. Recommended adaptive equipment: Road Monkey and Sock Aid. Toileting - Patient instructed [...] and modification tools as needed including leg career technical supervisor and/or bed adjustments. Bathroom DME: - Educated [...] in place draining clear yellow urine I/O ([id number]): Fifty-five cc serosanguineous from the drain 1 [...] locallyfor CBI. He was subsequently transferred to [facility] 08/12 for difficulty irrigating his catheter [...] 2.5 mg BID eliquis initiated 08/15 per [facility] med curbside recs --transition from [...] have him follow up with his local master hearth technician Comorbidities: --history of DVT status post IVC [...] discussed with Dr. Venegas, chief urology resident investigation manager. Pager during business hours: [phone] Pager after hours: [phone] * Emeteroi Buchanan PCarlos, D.P.T., [facility] - 08/24/2023 10:46 AM CDT Physical Therapy Inpatient Treatment SUBJECTIVE Patient's Name: Kalen Vega Referring/Attending Provider: Boubacar Brock M.D. Reason for Referral: Physical Therapy Evaluate and Treat History of Present Illness: Kalen Vega is a 83 y.o. male who was admitted to [facility] in [place] on 08/13/2023 for Hematuria [R31.9] Precautions Other [...] 3-5 steps with a railing?: A Lot -[facility] Basic Mobility (V.2) Raw Score: 17 -[facility] Basic Mobility (V.2) Standardized Score: 39.67 Interpretation: Based on scoring guidelines using the raw score value: Those going to home had an average score at or above 18 Those going to facility had an average score at or below 17 Clinicians answer the [facility] Inpatient Short Form based on observed [...] baseline. PT Goal #2: Patient will perform tkh-ez-cbpqd transfer with modified independence and least restrictive [...] Total Kcal/day: 1370 based on 84 % [place] Non-standard additives: K 80 mEq Phos 30 [...] magnesium, phosphorus tomorrow. #1 Hematuria Please page [facility] ([phone]) or [facility] ([phone]) Nutrition Support Service pager with questions. * [...] catheter in place draining light smith I/O ([id number]): Forty-two cc serosanguineous from the drain 2.2 [...] locallyfor CBI. He was subsequently transferred to [facility] 08/12 for difficulty irrigating his catheter [...] 2.5 mg BID eliquis initiated 08/15 per [facility] med curbside recs --transition from [...] have him follow up with his local master hearth technician Comorbidities: --history of DVT status post IVC [...] discussed with Dr. Venegas, chief urology resident investigation manager. Pager during business hours: [phone] Pager after hours: [phone] * Deanne Mike L.G.S.W., M.S.W. - 08/23/2023 11:25 AM CDT SUBJECTIVE Social Work spoke with [facility]. They cannot provide [place] [facility] at this time. They can provide OT/PT [...] anticipated discharge date of 08/24/23-08/26/23. Referrals sent: [facility] [place] - DECLINED (out of service area) [facility] ASSESSMENT / PLAN ASSESSMENT Patient has robust family support including a son living with him. PLAN Patient desires home health care through [facility]. Social Work will continue to follow to provide support. Social Work will continue to assist with discharge needs. Shorty Sun, M.S.W. 08/23/23 * Jazmine Benítez R.N., C.W.C.N. - 08/23/2023 11:[address] [facility] Wound RN consulted to assess Kalen Vega [...] stent and hematuria who is transferred from [place] ED with 3 days of hematuria and [...] None Unable to Measure Y *Wound Bed Closed;[place];Red Tissue Exposed None Odor None *Exudate Amount [...] 30 minutes > 30 minutes Ongoing management Nursing;Wound/optometry doctor Partial head to toe skin assessment completed [...] AM CDT * Emeterio Buchanan, P.T., D.P.T., [facility] - 08/23/2023 11:02 AM CDT Physical Therapy Inpatient Treatment SUBJECTIVE Patient's Name: Kalen Vega Referring/Attending Provider: Boubacar Brock M.D. Reason for Referral: Physical Therapy Evaluate and Treat History of Present Illness: Kalen Vega is a 83 y.o. male who was admitted to [facility] in [place] on 08/13/2023 for Hematuria [R31.9] Precautions Other [...] and O2 flow: Room air Outcome Measures: [facility] Inpatient Short Form: -[facility] Basic Mobility (V.2) How much help [...] 3-5 steps with a railing?: A Lot -[facility] Basic Mobility (V.2) Raw Score: 17 -[facility] Basic Mobility (V.2) Standardized Score: 39.67 Interpretation: Based on scoring guidelines using the raw score value: Those going to home had an average score at or above 18 Those going to facility had an average score at or below 17 Clinicians answer the -[facility] Inpatient Short Form based on observed [...] baseline. PT Goal #2: Patient will perform smm-kq-crwon transfer with modified independence and least restrictive [...] D.P.T., GCS * Demarco Salazar Pharm.D., R.Ph., [facility] - 08/23/2023 10:19 AM CDT Pharmacist [...] Total Kcal/day: 1370 based on 84 % [place] Non-standard additives: MAX chloride Thiamine 100 mg [...] magnesium, phosphorus tomorrow. #1 Hematuria Please page [facility] ([phone]) or [facility] ([phone]) Nutrition Support Service pager with questions. * Ivy Hernandez O.Maira. - 08/23/2023 8:30 AM CDT Occupational Therapy [facility] Inpatient Treatment SUBJECTIVE Patient's Name: Klaen Vega Referring/Attending Provider: Boubacar Brock M.D. Reason for Referral: Occupational Therapy Evaluation and Treatment History of Present Illness: Kalen Vega is a 83 y.o. male who was admitted to [facility] in [place] on 08/13/2023 for Hematuria [R31.9]. Precautions Other Precautions: Abdominal, fall precautions, monitor tachycardia and hypertension Pain Assessment: Pain not reported during session. Subjective Comments: Agreeable to therapy session. Team Communication: The patient's status was discussed and coordination of care occurred with RN, PT OBJECTIVE Vital Signs: Vitals monitored throughout session; within normal ranges. Outcome Measures: AM-[facility] Inpatient Short Form: Putting on and [...] at or below 17 Clinicians answer the -[facility] Inpatient Short Form based on observed [...] catheter in place draining clear yellow I/O ([id number]): 73 cc serosanguineous from the drain Seven [...] locallyfor CBI. 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 [facility] Summary: Diet: NPO, TPN Activity: [...] discussed with Dr. Venegas, chief urology resident investigation manager. Pager during business hours: [phone] Pager after hours: [phone] * Chary Diamond M.A., O.T., [facility] - 08/22/2023 4:19 PM CDT 08/22/23 4519 Reason Therapy Missed Reason Therapy Missed Receiving [...] OBJECTIVE Patient is anticipated to remain at [place] for 3-5 days. Referrals sent: [facility] ASSESSMENT / PLAN ASSESSMENT Patient has robust family support including a son living with him. PLAN Patient desires home health care through [facility]. Social Work will continue to follow to [...] 83 y.o. male who was admitted to [facility] in [place] on 08/13/2023 for Hematuria [R31.9] Precautions Other [...] hypotension or respiratory distress. . Outcome Measures: [facility] Inpatient Short Form: -[facility] Basic Mobility (V.2) How much help [...] 3-5 steps with a railing?: A Lot [facility] Basic Mobility (V.2) Raw Score: 17 [facility] Basic Mobility (V.2) Standardized Score: 39.67 Interpretation: Based on scoring guidelines using the raw score value: Those going to home had an average score at or above 18 Those going to facility had an average score at or below 17 Clinicians answer the [facility] Inpatient Short Form based on observed [...] baseline. PT Goal #2: Patient will perform nri-yp-bswnh transfer with modified independence and least restrictive [...] D.P.T., GCS * Demarco Salazar Pharm.DJonah, R.Ph., [facility] - 08/22/2023 10:57 AM CDT Pharmacist [...] Total Kcal/day: 1370 based on 84 % [place] Non-standard additives: MAX chloride Thiamine 100 mg [...] place draining light smith colored urine I/O ([id number]): CBI on slow drip 75 cc serosanguineous [...] locallyfor CBI. He was subsequently transferred to [facility] 08/12 for difficulty irrigating his catheter [...] 2.5 mg BID eliquis initiated 08/15 per [facility] med curbside recs --transition from [...] have him follow up with his local master hearth technician Comorbidities: --history of DVT status post IVC [...] discussed with Dr. Venegas, chief urology resident investigation manager. Pager during business hours: [phone] Pager after hours: [phone] * Qamar Jim Pharm.D., R.Ph. - 08/21/2023 [...] place draining clear smith colored urine I/O ([id number]): 1800 cc urine output 75 cc serosanguineous [...] locallyfor CBI. He was subsequently transferred to [facility] 08/12 for difficulty irrigating his catheter [...] 2.5 mg BID eliquis initiated 08/15 per [facility] med curbside recs --transition from [...] have him follow up with his local master hearth technician Comorbidities: --history of DVT status post IVC [...] discussed with Dr. Venegas, chief urology resident investigation manager. Pager during business hours: [phone] Pager after hours: [phone] * Lizette Harvey M.D. - 08/20/2023 8:08 [...] draining clear thin mer[place] colored urine I/O ([id number]): 240 cc p.o. intake 760 cc urine [...] locallyfor CBI. He was subsequently transferred to [facility] 08/12 for difficulty irrigating his catheter [...] 2.5 mg BID eliquis [facility] --transition from eliquis ppx to [...] have him follow up with his local master hearth technician Comorbidities: --history of DVT status post IVC [...] questions or concerns. Pager during business hours: [phone] Pager after hours: [phone] * Qamar Jim, Pharm.D., R.Ph. - 08/20/2023 [...] in [employer]. Qamar Jim Pharm.D., R.Ph. * BuddhistLisa O.T., MOT - 08/19/2023 2:26 PM CDT Occupational Therapy [facility] Inpatient Treatment SUBJECTIVE Patient's Name: Kalen Vega Referring/Attending Provider: Boubacar Brock M.D. Reason for Referral: Occupational Therapy Evaluation and Treatment History of Present Illness: Kalen Vega is a 83 y.o. male who was admitted to [facility] in [place] on 08/13/2023 for Hematuria [R31.9]. Precautions Other Precautions: Abdominal, fall precautions, monitor tachycardia and hypertension Pain Assessment: Pain not reported during session. Subjective Comments: Patient greeted in chair and agreeable to therapy session. Team Communication: The patient's status was discussed and coordination of care occurred with RN OBJECTIVE Vital Signs: Vitals monitored throughout session; within normal ranges. Outcome Measures: [facility] Inpatient Short Form: Putting on and [...] at or below 17 Clinicians answer the [facility] Inpatient Short Form based on observed [...] about patient's nutritional care please contact pager [phone] on weekdays or [phone] on weekends/holidays. NUTRITION ASSESSMENT: Mr. Vega is [...] care everywhere) ESTIMATED NEEDS: Total Calorie Needs: 4616-6027 calories/day Method to Estimate Energy Needs: kcal/kg [...] 83 y.o. male who was admitted to [facility] in [place] on 08/13/2023 for Hematuria [R31.9] Precautions Other [...] 3-5 steps with a railing?: A Little -[facility] Basic Mobility (V.2) Raw Score: 18 -[facility] Basic Mobility (V.2) Standardized Score: 41.05 Interpretation: Based on scoring guidelines using the raw score value: Those going to home had an average score at or above 18 Those going to facility had an average score at or below 17 Clinicians answer the -[facility] Inpatient Short Form based on observed [...] Ongoing PT Goal #2: Patient will perform chn-qz-zlhwn transfer with modified independence and least restrictive [...] in place draining clear pink urine I/O ([id number]): 370 p.o. intake 1 L urine output [...] locallyfor CBI. He was subsequently transferred to [facility] 08/12 for difficulty irrigating his catheter [...] have him follow up with his local master hearth technician Comorbidities: --history of DVT status post IVC [...] questions or concerns. Pager during business hours: [phone] Pager after hours: [phone] * Lisa Seaman, O.T., [facility] - 08/18/2023 11:15 AM CDT Occupational Therapy [facility]patient Treatment SUBJECTIVE Patient's Name: Kalen Vega Referring/Attending Provider: Boubacar Brock M.D. Reason for Referral: Occupational Therapy Evaluation and Treatment History of Present Illness: Kalen Vega is a 83 y.o. male who was admitted to [facility] in [place] on 08/13/2023 for Hematuria [R31.9]. Precautions Other [...] pressure: 168/97 - nurse notified Outcome Measures: [facility] Inpatient Short Form: Putting on and [...] at or below 17 Clinicians answer the [facility] Inpatient Short Form based on observed [...] doffing over it last. Recommended adaptive equipment: Road Monkey and Sock Aid. Patient was left in bedside chair, with nursing/FREEZING MACHINE OPERATOR at end of session with call light [...] 83 y.o. male who was admitted to [facility] in [place] on 08/13/2023 for Hematuria [R31.9] Precautions Other [...] vital signs with primary service. Outcome Measures: [facility] Inpatient Short Form: -[facility] Basic Mobility (V.2) How much help [...] 3-5 steps with a railing?: A Little -[facility] Basic Mobility (V.2) Raw Score: 18 -[facility] Basic Mobility (V.2) Standardized Score: 41.05 Interpretation: Based on scoring guidelines using the raw score value: Those going to home had an average score at or above 18 Those going to facility had an average score at or below 17 Clinicians answer the -[facility] Inpatient Short Form based on observed [...] following coordination of care occurred with the terrapin fisher/Caregiver Present: No Patient was left in bedside [...] Progressing PT Goal #2: Patient will perform mfd-gx-cnpih transfer with modified independence and least restrictive [...] in place draining clear pink urine I/O ([id number]): 1.2 L p.o. intake 1 L urine [...] locallyfor CBI. He was subsequently transferred to [facility] 08/12 for difficulty irrigating his catheter [...] 2.5 mg BID eliquis initiated 08/15 per [facility] recs --transition from eliquis ppx to [...] diet later today follow up vascular medicine [facility] Summary: Diet: currently limited clears Activity: Ad kong DVT PPX: heparin drip GI PPX: Pantoprazole Bowel Regimen:N/A IVF: none Abx/Microbiology: Ceftriaxone Pain Control: Tylenol, oxycodone 08/18. Scheduled trospium Home Meds Resumed: Metoprolol, tamsulosin, rosuvastatin Held Home Meds: None Consults: None Paula Hernandez M.D. 08/18/2023 6:02 AM CDT Please page the Urology Chief Service with questions or concerns. Pager during business hours: [phone] Pager after hours: [phone] * Tayler Greenwood M.D., M.Ed. - 08/17/2023 [...] recent open bladder surgery. Tayler Greenwood MD, [facility] * Alia Ruelas Pharm.D., R.Ph., BCPS [...] the patient follow up with his primary master hearth technician at discharge we will which we will [...] secondary to radiation proctitis requires frequent transfusions. [facility]ed to floor 08/15/23 PMH: Metastatic prostate [...] Ringer's Lactated Ringer's * Lisa Seaman, O.T., [facility] - 08/17/2023 10:47 AM CDT Occupational Therapy Acute Hospital Inpatient Treatment SUBJECTIVE Patient's Name: Kalen Vega Referring/Attending Provider: Boubacar Brock M.D. Reason for Referral: Occupational Therapy Evaluation and Treatment History of Present Illness: Kalen Vega is a 83 y.o. male who was admitted to [facility] in [place] on 08/13/2023 for Hematuria [R31.9]. Precautions Other Precautions: abdominal; fall risk; watch HR Pain Assessment: Pain not reported during session. Subjective Comments: Patient greeted in bed and agreeable to therapy session. Team Communication: The patient's status was discussed and coordination of care occurred with RN OBJECTIVE Vital Signs: Vitals taken during session: Pulse rate: 102-128 bpm Outcome Measures: [facility] Inpatient Short Form: Putting on and [...] at or below 17 Clinicians answer the [facility] Inpatient Short Form based on observed [...] in place draining clear pink urine I/O ([id number]): NG tube 200 cc Two hundred sixty-five [...] locallyfor CBI. He was subsequently transferred to [facility] 08/12 for difficulty irrigating his catheter [...] questions or concerns. Pager during business hours: [phone] Pager after hours: [phone] * Audi De Luna P.T., D.P.T. - [...] in place draining clear pink urine I/O ([id number]): NG tube 200 cc Two hundred sixty-five [...] locallyfor CBI. He was subsequently transferred to [facility] 08/12 for difficulty irrigating his catheter [...] questions or concerns. Pager during business hours: [phone] Pager after hours: [phone] * Paula Hernandez M.D. - 08/15/2023 9:09 AM CDT PROGRESS NOTE: No events. AFVSS. Pain controlled. No flatus. No further emesis overnight. Abdomen more distended than yesterday but remained soft, tender to deep palpation only, no rebound. Twenty-four Russian Alcock three-way catheter remains off CBI, draining [...] for CBI. He was subsequently transferred to [facility] 08/12 for difficulty irrigating his catheter [...] risks associated with surgery and anesthesia including CO, stroke, and VTE were also discussed. Finally, [...] above was discussed with Dr. Brock, urology salesforce consultant on-call who is in agreement with [...] Family to bring his home enzalutamide from [place] Irvin Franco PharmPerla., R.Ph. * Jakob De Paz M.D. - 08/14/2023 11:34 AM CDT PROGRESS NOTE: No events. AFVSS. Pain controlled. No flatus. Nauseous and had 2 episodes of emesis. Abdomen more distended than yesterday but remained soft, tender to deep palpation only, no rebound. Twenty-four Russian Alcock three-way catheter remains off CBI, draining [...] for CBI. He was subsequently transferred to [facility] 08/12 for difficulty irrigating his catheter [...] above was discussed with Dr. Brock, urology salesforce consultant on-call who is in agreement with [...] double-J ureteral stent. Findings discussed with Carlos Ablerto Henson M.D. at 1815 on 08/13/2023. ASSESSMENT [...] Patient discussed with Dr. Sylvester. Page CCM3 [id number] Carlos Alberto Henson M.D. PGY-1 CCM 3 [...] who have asked we place a 24 Russian 3-way urinary catheter pending evaluation. We will [...] him to present to local hospital in [place]. OSH Course: His hemoglobin was in the [...] Insecurity: No Food Insecurity (02/16/2022) Received from [facility] [employer] [facility] [employer] [facility], [facility] Food Insecurity Worried About Running Out of Food in the Last Year: 1 Transportation Needs: No Transportation Needs (02/16/2022) [facility] [employer] [facility], [facility] Transportation Needs Lack of Transportation (Medical): 1 Housing Stability: Low Risk (02/16/2022) Received from [facility] [employer] [facility] [employer] [facility], [facility] Housing Stability Unable to Pay for [...] Dr. Sylvester and Dr. Rodriguez. Page CCM3 [id number] Carlos Alberto Henson M.D. PGY-1 CCM 3 [...] REMOVED None FINDINGS As expected PRIMARY PROCEDURALIST AFY Cerna MD [phone] ASSISTANTS none COMPLICATIONS None. DRAINS None. IMPLANTS [...] peripheral vein targets. Ultrasound used for assessment: [employer] Provider contacted (include name): Uro Surg [...] 14 -- AST U/L 25 -- Radiology: @[id number]@ Swallow Assessment: No data to display ASSESSMENT / PLAN #1 Hematuria ASSESSMENT Currently we are asked to visit with Mr. Vega for consideration of parenteral nutrition. Nutrition Needs: Height: 180 cm Admission Weight: 91.2 kg (08/13/2023) Current Weight: 90.2 kg BMI (Calculated): 27.8 kg/m?? Total Calorie Needs: 3666-8816 calories/day Method to Estimate Energy Needs: [place] ( ) Weight Used for Equation Calculations: [...] on electrolytes Please call NSS pager at [phone] [facility] or [phone] at [facility] with any additional questions. * Gilbert Johnson M.D. - 08/20/2023 8:05 AM CDTAssociated Order(s): Nutrition support service consult ([facility]) SUBJECTIVE Nutrition support service consult ([facility]) Referring Provider: Lizette Harvey M.D. REASON FOR [...] values in this interval not displayed. Radiology: @[email or web address]@ Swallow Assessment: No data to display ASSESSMENT / PLAN #1 Hematuria ASSESSMENT Currently we are asked to visit with Mr. Vega for consideration of parenteral nutrition. Nutrition Needs: Height: 180 cm Admission Weight: 91.2 kg (08/13/2023) Current Weight: 90.2 kg BMI (Calculated): 27.8 kg/m?? Total Calorie Needs: 3831-6672 calories/day Method to Estimate Energy Needs: kcal/kg [...] on electrolytes Please call NSS pager at [phone] [facility] or [phone] at [facility] with any additional questions. BILLING/CODING Total [...] stent along with other stents and apparently master hearth technician in the past I recommended indefinite dual [...] documented in the history of present illness. @formerly [facility]@ OBJECTIVE Current Facility-Administered Medications: acetaminophen tablet 650 [...] 20 mL/hr, intravenous, Continuous, Frieda Garner APRN, SUPERVISOR DOG LICENSE OFFICER, Last Rate: 20 mL/hr at 08/15/23 1459, [...] but he can discuss this with his master hearth technician at home. We need to balance transfusion needs for continued bleedingand risk of recurrent CO if not on Plavix-coronary stents were 6 [...] 83 y.o. male who was admitted to [facility] in [place] on 08/13/2023 for Hematuria [R31.9]. Relevant Medical History: Kalen Vega is a 83 y.o. 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 Outcome Measures: [facility] Inpatient Short Form: -[facility] Basic Mobility (V.2) How much help [...] 3-5 steps with a railing?: A Lot -[facility] Basic Mobility (V.2) Raw Score: 17 -[facility] Basic Mobility (V.2) Standardized Score: 39.67 Interpretation: Based on scoring guidelines using the raw score value: Those going to home had an average score at or above 18 Those going to facility had an average score at or below 17 Clinicians answer the [facility] Inpatient Short Form based on observed [...] following coordination of care occurred with the terrapin fisher/Caregiver Present: Favio Alfaro Patient was left in [...] 83 y.o. male who was admitted to [facility] in [place] on 08/13/2023 for Hematuria with cystotomy and [...] Min assist for mobility. Required assist for [id number] for force generation and is generally standby [...] Ongoing PT Goal #2: Patient will perform hsu-pl-[id number] transfer with modified independence and least restrictive [...] 83 y.o. male who was admitted to [facility] in [place] on 08/13/2023 for Hematuria [R31.9]. Relevant Medical [...] with RN, PT Family/Caregiver Present: Son and byqhcvht-il-ndl. Home Living and Equipment: Lives with: Spouse/Significant [...] walker, Single point cane Adaptive Equipment Owned: Road Monkey, Long Handled Shoe Horn Other DME Owned: Regular flat bed Prior Level of Function and Mobility: Basic Activities of Daily Living: Independent Instrumental Activities of Daily Living: Required Assistance: Laundry son assists with laundry and cooking Functional Mobility: Independent Driving: Yes Occupational Role: Retired Leisure Interests: watch movies, plays martiniquais train, meets friends for breakfast. Patient/Caregiver Goals: [...] Wears glasses all the time Outcome Measures: [facility] Inpatient Short Form: Putting on and [...] at or below 17 Clinicians answer the [facility] Inpatient Short Form based on observed [...] all are a great support. 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 Patient expressed understanding and was agreeable to [...] conversation with his family when social work associate entered the room. He was engaged in [...] locally at approximately 3:00 a.m. a 22 Russian three-way catheter was placed and CBI wasinitiated. Unfortunately he clotted off the catheter multiple times despite manual irrigations, started to develop hypotension and tachycardia [facility] He relays the above [...] non-distended, non-peritonitic Extremities: No edema : 22 Russian three-way Tabares catheter draining a minimal amount [...] urinary retention Given his non draining 22 Russian three-way catheter the Urology techs and I subsequently exchanged this for a 24 Russian three-way Alcock in the usual sterile fashion. [...] to follow [place] [phone] with questions or concerns Sixto Cain M.D. [...] peripheral vein targets. Ultrasound used for assessment: [employer] Provider contacted (include name): Uro Surg [...] CDT Patient Transfer Note Patient transferred to: [facility] Room: 101 Accompanied by: JAMEL Garcia Report [...] signs? YES * Sixto Teague R.R.T., L.R.TJonah, HIGH SCHOOL AGRICULTURE TEACHER-[facility] - 08/14/2023 7:00 AM CDT Patient [...] the last 24hours. Sixto Teague R.R.T., L.R.TJonah, HIGH SCHOOL AGRICULTURE TEACHER-[facility] 08/14/23 7:00 AM CDT Electronically signed by Sixto Teague R.R.T., SiddharthaRJonahTJonah, HIGH SCHOOL AGRICULTURE TEACHER-[employer] at 08/14/2023 7:02 AM CDT * Radha [...] Bladder Spontaneous Post-op Diagnosis Rupture Bladder Spontaneous Patrol Inspector A assistant corporate controller actively participated and was necessary for one [...] the supine flexed position. His existing 24 Russian three-way Tabares catheter was noted to be [...] additional tissue for additional coverage. A 24 Russian three-way catheter was placed with 15 cc in the balloon. This irrigated to light clear pink. A 15 Russian YARELI drain wasplaced into the pelvis exiting left lower quadrant. The fascia was closed with interrupted and [id number] 0 PDS. Fat was approximated using 3-0 [...] encounter Miscellaneous Notes * Documentation Clarification - Paula Hernandez M.D. - 08/26/2023 4:11 PM CDT PROVIDER RESPONSE TEXT: To clarify, the appropriate diagnosis supported by the clinical indicators: PATRICE <LCI> QUERY TEXT: DOCUMENTATION CLARIFICATION REQUEST Please clarify/specify the appropriate diagnosis supported in the clinical indicators below. PATRICE Other (explain) Clinically unable to determine (explain) 83-year-old male presenting today as a direct transfer from outside hospital for gross hematuria and clot urinary retention. -Pn, 5-[address] Cain 08/12 - 08/13, Creatinine: 2.31 > 1.83 08/21 - 08/24, Creatinine: 1.37 > 1.27 > 1.14 > 1.06 MAR: -LR 1 L Bolus x 2 (5-4) -LR @ 75 cc/hr (5-7 - 5-8) Please contact me if you have questions. Thank you, ELMER Barker, RN, CPN, HELDERS, CCS, CRC Clinical Documentation Pet Care Assistant Query created by: ELMER Barker, RN, CPN, CCDS, CCS, CRC 08/25/2023 08:37 AM CDT </LCI> * Documentation Clarification - Jakob De Paz [...] stent and hematuria who is transferred from [place] ED with 3 days of hematuria & [...] RN, CPN, CCDS, CCS, CRC Clinical Documentation Pet Care Assistant Query created by: ELMER Barker, RN, CPN, [...] he felt completely obstructed and presented to [place] ED. [place] Course Attempted Tabares insertion but bladder irrigation was unsuccessful on multiple attempts. Hung 1U pRBC's. Given some volume and transferred to [facility] ICU ICU Course Urology consulted and [...] CDT Procedure visit Department of Urology in [place], [place] [address] [place] [address] Sima Venegas M.D. [address] [place] [address] Pending Results Name Type Priority Associated Diagnoses [...] Paula Hernandez M.D. IMG IR PROCEDURES * Transfuse Red Blood Cells : (08/26/2023 11:00 AM CDT) Paula Hernandez M.D. BLOOD TRANSFUSION OR DERABLES * Transfuse Red Blood Cells : , 1 Units (08/26/2023 11:00 AM CDT) Paula Hernandez M.D. BLOOD TRANSFUSION OR DERABLES * Type and Screen (with Reflex Antibody ID) (08/26/2023 6:50 AM CDT) [facility] ABORh O Pos Not applicable 08/26/2023 7:16 AM CDT STRM Antibody Screen Negative Negative 08/26/2023 7:29 AM CDT STRM Type & Screen Expiration 08/29/2023 23:59 08/26/2023 7:16 AM CDT STRM Testing Location Marcio DEFAULT 08/26/2023 6:57 AM CDT STRM Blood (Blood, Venous) 08/26/2023 6:50 AM CDT 08/26/2023 6:57 AM CDT Paula Hernandez M.D. LAB BLOOD BANK TEST ORDERABLES Performing Organization Address City/State/[facility] Co de Phone Number [facility] [address] [place] [address], [facility] [address] [place] [address] * (ABNORMAL) CBC without Differential (08/26/2023 3:20 AM CDT) [facility] Hemoglobin 7.4(L) 13.2 - 16.6 g/dL 08/26/2023 [...] M.D. LAB BLOOD ADD-ON Performing Organization Address City/[facility]/ZIP Co de Phone Number [facility] [address] [place] [address] * Magnesium (08/26/2023 3:20 AM CDT) Magnesium, S 2.1 1.7 - 2.3 mg/dL 08/26/2023 4:04 AM CDT DTL Blood (Blood, Venous) 08/26/2023 3:20 AM CDT 08/26/2023 3:50 AM CDT Boubacar Brock M.D. LAB BLOOD ADD-ON Performing Organization Address City/[facility] Co de Phone Number [facility] [address] [place] [address], [facility] [address] [place] [address] * (ABNORMAL) Renal Function Panel (08/26/2023 3:20 [...] CDT Boubacar Brock M.D. LAB BLOOD ADD-ON [address] [address], [facility] [place] [address] * Heparin Anti-Xa Assay (08/26/2023 3:20 AM [...] BLOOD NON ADD -ON Performing Organization Address City/[facility]/ZIP Co de Phone Number [facility] [address] [place] [address], [facility] DTL [facility] [place] [facility] [address] [place] [address] * (ABNORMAL) CBC without Differential (08/25/2023 3:24 AM CDT) Pathologist [facility] Hemoglobin 8.3(L) 13.2 - 16.6 g/dL 08/25/2023 [...] CDT Corin Ring M.D. LAB BLOOD ADD-ON [facility] [address] [place] [address], [facility] DTL [facility] [place] [facility] [address] [place] [address] * (ABNORMAL) Renal Function Panel (08/25/2023 3:24 AM CDT) Potassium, S 4.1 3.6 - 5.2 mmol/L [...] CDT Boubacar Brock M.D. LAB BLOOD ADD-ON [facility] [address] [place] [address], [place] DTL [facility] [place] [facility] [address] [place] [address] * Magnesium (08/25/2023 3:24 AM CDT) [facility] Magnesium, S 2.2 1.7 - 2.3 mg/dL 08/25/2023 4:36 AM CDT [facility] Blood (Blood, Venous) 08/25/2023 3:24 AM CDT 08/25/2023 4:19 AM CDT Boubacar Brock M.D. LAB BLOOD ADD-ON Performing Organization Address City/[facility] Co de Phone Number [facility] [address] [place], [place] [address] [place] [address] * Heparin Anti-Xa Assay (08/25/2023 3:24 AM CDT) [facility] Heparin Anti-Xa, P 0.31 IU/mL 2023 4:09 AM CDT [facility] Comment: UFH therapeutic range: ?? 0.30-0.70 IU/mL [...] LAB BLOOD NON ADD-ON Performing Organization Address [facility] Co de Phone Number [facility] [address] [place] [address], [facility] [address] [place] [address] * (ABNORMAL) CBC without Differential (08/24/2023 5:28 AM CDT) [facility] Hemoglobin 8.1(L) 13.2 - 16.6 g/dL [...] M.D. LAB BLOOD ADD-ON Performing Organization Address City/[facility]/ZIP Co de Phone Number [facility] [address] [place] [address] * Magnesium (08/24/2023 5:28 AM CDT) Magnesium, S 2.3 1.7 - 2.3 mg/dL 08/24/2023 6:19 AM CDT DTL Blood (Blood, Venous) 08/24/2023 5:28 AM CDT 08/24/2023 6:00 AM CDT Boubacar Brock M.D. LAB BLOOD ADD-ON [facility] [address] [place] [address], [facility] [address] [place] [address] * (ABNORMAL) Renal Function Panel (08/24/2023 5:28 [...] CDT Boubacar Brock M.D. LAB BLOOD ADD-ON [facility] [address] [place] [address], [place] [facility] [address] [place] [address] * Heparin Anti-Xa Assay (08/24/2023 5:28 AM CDT) Heparin Anti-Xa, P 0.33 IU/mL 2023 5:58 AM CDT DT Comment: UFH therapeutic range: [...] LAB BLOOD NON ADD-ON Performing Organization Address City/[facility]/ZIP Co de Phone Number [facility] [address] [place] [address], [facility] [address] [place] [address] * (ABNORMAL) Potassium (08/23/2023 9:58 PM CDT) Potassium, S 3.5(L) 3.6 - 5.2 mmol/L 08/23/2023 10:45 PM CDT DT Blood (Blood, Venous) 08/23/2023 9:58 PM CDT 08/23/2023 10:30 PM CDT Boubacar Brock M.D. LAB BLOOD ADD-ON Performing Organization Address City/[facility]/ZIP Co de Phone Number [facility] [address] [place] [address], [facility] [address] [place] [address] * (ABNORMAL) Phosphorus Inorganic (08/23/2023 9:58 PM CDT) Pathologist [facility] Phosphorus (Inorganic), S 2.1(L) 2.5 - 4.5 mg/dL 08/23/2023 10:45 PM CDT DT Blood (Blood, Venous) 08/23/2023 9:58 PM CDT 08/23/2023 10:30 PM CDT Paula Hernandez M.D. LAB BLOOD ADD-ON Performing Organization Address City/[facility] Co de Phone Number [facility] [address] [place], [place] [address] [place] [address] 200 [place] [address] * Heparin Anti-Xa Assay (08/23/2023 11:37 AM CDT) [facility] Heparin Anti-Xa, P 0.51 IU/mL 2023 12:42 PM CDT [facility] Comment: UFH therapeutic range: ?? 0.30-0.70 IU/mL [...] LAB BLOOD NON ADD-ON Performing Organization Address [facility] Co de Phone Number [facility] [address] [place] [address], [facility] [address] [place] [address] * (ABNORMAL) CBC without Differential (08/23/2023 3:42 AM CDT) Pathologist [facility] Hemoglobin 8.3(L) 13.2 - 16.6 g/dL 08/23/2023 [...] CDT Corin Ring M.D. LAB BLOOD ADD-ON [address] [address], [place] [address] * Triglycerides (08/23/2023 3:42 AM CDT) Pathologist [facility] Triglycerides 106 mg/dL 08/23/2023 4:50 AM CDT DTL Comment: ----REFERENCE VALUE---- Normal: <150 mg/dL Borderline High: 150-199 mg/dL High: 200-499 mg/dL Very High: > or =500 mg/dL Fasting (8 HR or more) Yes 08/23/2023 4:19 AM CDT DTL Blood (Blood, Venous) 08/23/2023 3:42 AM CDT 08/23/2023 4:19 AM CDT Boubacar Brock M.D. LAB BLOOD ADD-ON Performing Organization Address City/[facility]/[place] [address] * Magnesium (08/23/2023 3:42 AM CDT) Magnesium, S 2.2 1.7 - 2.3 mg/dL 08/23/2023 4:50 AM CDT DTL Blood (Blood, Venous) 08/23/2023 3:42 AM CDT 08/23/2023 4:19 AM CDT Boubacar Brock M.D. LAB BLOOD ADD-ON Performing Organization Address [facility] [place] [address] * (ABNORMAL) Renal Function Panel (08/23/2023 3:42 AM CDT) Potassium, S 3.1(L) 3.6 - 5.2 mmol/L [...] CDT Boubacar Brock M.D. LAB BLOOD ADD-ON [address] [facility] [address] [place] [address] * Heparin Anti-Xa Assay (08/23/2023 3:41 AM [...] AM CDT 08/23/2023 4:00 AM CDT Boubacar K Brock M.D. LAB BLOOD NON ADD-ON Performing Organization Address City/[facility]/ZIP Co de Phone Number [facility] [address] [place] [address], [facility] [address] [place] [address] * Glucose, POCT (08/22/2023 11:38 PM CDT) Glucose, POCT, B 117 70 - 140 mg/dL 08/23/2023 1:06 AM CDT PCLX Site Capillary 08/23/2023 1:06 AM CDT PCLX Last Intake NPO 08/23/2023 1:06 AM CDT PCLX Blood 08/22/2023 11:3 8 PM CDT 08/23/2023 1:06 AM CDT Unknown Provider LAB POCT ORDERABLES- MANUAL Performing Organization Address [facility] Co de Phone Number [facility]OC [facility] [address] [place], [place] [id number] [place] [address] PCLX [facility] POC [address] [place] [address] * Heparin Anti-Xa Assay (08/22/2023 10:14 PM CDT) Pathologist [facility] Heparin Anti-Xa, P 0.50 IU/mL 2023 10:47 PM CDT DT Comment: UFH therapeutic range: ?? [...] Boubacar Brock M.D. LAB BLOOD NON ADD-ON [facility] [address] [place] [address], [place] DTL [facility] [address] [place] [address] * CT Abdomen Pelvis without IV Contrast [...] Boubacar Brock M.D. LAB BLOOD NON ADD-ON [facility] [address] [place] [address], [facility] [address] [place] [address] * Creatinine, Body Fluid (08/22/2023 3:30 PM [...] transport rates. All other fluids refer to [email or web address] for further interpretive information. This test has been modified from the blasting helper's instructions. Its performance characteristics were determined by [facility] in a manner consistent with CLIA requirements. This test has not been cleared or approved by the U.S. Food and Drug Administration. Fluid Type, Creatinine Fluid, Abdomen 08/22/2023 3:52 PM CDT DTL Fluid (Abdomen) 08/22/2023 3 :30 PM CDT 08/22/2023 6:36 PM CDT Corin Ring M.D. LAB BODY FLUIDS AND STOOLS ORDERABLES [facility] [address] [place] [address], [facility] [address] [place] [address] * Transfuse Red Blood Cells : (08/22/2023 12:07 PM CDT) Paula Hernandze M.D. BLOOD TRANSFUSION OR DERABLES * Transfuse [...] of a right IJ vein single-lumen 4 Russian tunneled PowerPICC ready for immediate use. NR [...] advanced into the IVC and a 4 Russian dilator advanced over the wire and attached to a one-way stopcock. A suitable exit site in the right anterior chest was anesthetized and a small incision made. A 4 Russian single-lumen PowerPICC was then tunneled from the [...] Wireadvanced into the IVC and a 4 Russian dilator advanced over the wire andattached to a one-way stopcock. A suitable exit site in the right anteriorchest was anesthetized and a small incision made. A 4 Russian single-lumen PowerPICC was then tunneled fromthe skin [...] of a right IJ vein single-lumen 4 Russian tunneled PowerPICCready for immediate use. NR Kimi [...] CDT Latisha Whitehead M.D. LAB BLOOD ADD-ON [facility] [address] [place] [address], [facility] [address] [place] [address] * Type and Screen (with Reflex Antibody [...] M.D. LAB BLOOD BANK T EST ORDERABLES [facility] [address] [place] [address], [facility] STRM [facility] [address] [place] [address] * (ABNORMAL) Comprehensive Metabolic Panel (08/22/2023 2:40 [...] CDT Latisha Whitehead M.D. [place] [address], [facility] [place] [address] * Heparin Anti-Xa Assay (08/22/2023 2:40 AM CDT) [facility] Heparin Anti-Xa, P 0.47 IU/mL 2023 [...] BLOOD NON AD D-ON Performing Organization Address City/[facility]/ZIP Co de Phone Number [facility] [address] DTL [facility] 200 [place] [address] * (ABNORMAL) APTT (Activated Partial Thromboplastin Time) (08/22/2023 2:40 AM CDT) Pathologist [facility] Activated Partial Thrombopl Time, P 64(H) 25 - 37 sec 08/22/2023 3:12 AM CDT STMA Blood (Blood, Venous) 08/22/2023 2:40 AM CDT 08/22/2023 3:01 AM CDT Latisha Whitehead M.D. LAB BLOOD ADD-ON Performing Organization Address [facility] Co de Phone Number [facility] [address] STMA [facility] 200 [place] [address] * Triglycerides (08/21/2023 7:32 AM CDT) Pathologist [facility] Triglycerides 98 mg/dL 08/21/2023 9:03 AM CDT DTL Comment: ----REFERENCE VALUE---- Normal: <150 mg/dL Borderline High: 150-199 mg/dL High: 200-499 mg/dL Very High: > or =500 mg/dL Fasting (8 HR or more) Unknown 08/21/2023 8:38 AM CDT DTL Blood (Blood, Venous) 08/21/2023 7:32 AM CDT 08/21/2023 8:38 AM CDT Lizette Harvey M.D. LAB BLOOD ADD-O N Performing Organization Address City/[facility]/ZIP Co de Phone Number [facility] [address] 200 [place] [address] * Phosphorus Inorganic (08/21/2023 7:32 AM CDT) Pathologist [facility] Phosphorus (Inorganic), S 2.6 2.5 - 4.5 mg/dL 08/21/2023 9:03 AM CDT DTL Blood (Blood, Venous) 08/21/2023 7:32 AM CDT 08/21/2023 8:38 AM CDT Lizette Harvey M.D. LAB BLOOD ADD-O N [facility] [address] 200 [place] [address] * Magnesium (08/21/2023 7:32 AM CDT) Pathologist [facility] Magnesium, S 2.3 1.7 - 2.3 mg/dL 08/21/2023 9:03 AM CDT DTL Blood (Blood, Venous) 08/21/2023 7:32 AM CDT 08/21/2023 8:38 AM CDT Lizette Harvey M.D. LAB BLOOD ADD-O N [facility] [address] 200 [place] [address] * (ABNORMAL) Basic Metabolic Panel (08/21/2023 7:32 [...] Lizette Harvey M.D. LAB BLOOD ADD-O N [address] [address], [facility] [place] [address] * (ABNORMAL) CBC without Differential (08/21/2023 7:32 [...] LAB BLOOD ADD-O N Performing Organization Address [facility] Co de Phone Number [address] [place] [address] * Heparin Anti-Xa Assay (08/21/2023 7:32 AM [...] LAB BLOOD NON ADD-ON Performing Organization Address City/[facility]/ZIP Co de Phone Number [facility] [address] [place] [address], [facility] [address] [place] [address] * (ABNORMAL) APTT (Activated Partial Thromboplastin Time) (08/21/2023 7:32 AM CDT) Activated Partial Thrombopl Time, P 49(H) 25 - 37 sec 08/21/2023 8:31 AM CDT DTL Blood (Blood, Venous) 08/21/2023 7:32 AM CDT 08/21/2023 8:06 AM CDT Boubacar Brock M.D. LAB BLOOD ADD-ON Performing Organization Address City/[facility] Co de Phone Number [address] [address], [facility] [place] [address] * Place peripherally inserted central catheter (PICC) [...] M.D. PROCEDURE/MINOR SURGICAL ORDERABLES Performing Organization Address City/[facility]/ZIP Co de Phone Number MMODAL NA * DX [...] ANTERIOR POSTERIOR 1 VIEW Procedure Note Raul Vázquze M.D., M.S. - 08/20/2023 EXAM: DX ABDOMEN [...] kidney. Lizette CHOUDHARY CT PROCEDUR ES * (ABNORMAL) Basic Metabolic [...] CDT Paula Hernandez M.D. LAB BLOOD ADD-ON [facility] [address] [place] [address], [facility] [address] [place] [address] * (ABNORMAL) CBC without Differential (08/20/2023 3:19 [...] M.D. LAB BLOOD ADD-ON Performing Organization Address City/[facility]/ZIP Co de Phone Number [facility] 200 [place] [address] * (ABNORMAL) APTT (Activated Partial Thromboplastin Time) (08/20/2023 3:19 AM CDT) Activated Partial Thrombopl Time, P 52(H) 25 - 37 sec 08/20/2023 4:33 AM CDT DTL Blood (Blood, Venous) 08/20/2023 3:19 AM CDT 08/20/2023 4:10 AM CDT Boubacar Brcok M.D. LAB BLOOD ADD-ON Performing Organization Address City/[facility]/ZIP Co de Phone Number [facility] [address] [facility] [address] [place] [address] * (ABNORMAL) APTT (Activated Partial Thromboplastin Time) (08/19/2023 10:57 AM CDT) Pathologist [facility] Activated Partial Thrombopl Time, P 54(H) 25 - 37 sec 08/19/2023 11:44 AM CDT DTL Blood (Blood, Venous) 08/19/2023 10:57 AM CDT 08/19/2023 11:26 AM CDT Boubacar Brock M.D. LAB BLOOD ADD-ON [facility] [address] [place] [address], [facility] [address] [place] [address] * (ABNORMAL) APTT (Activated Partial Thromboplastin Time) (08/19/2023 4:51 AM CDT) [facility] Activated Partial Thrombopl Time, P 59(H) 25 - 37 sec 08/19/2023 5:53 AM CDT DT Blood (Blood, Venous) 08/19/2023 4:51 AM CDT 08/19/2023 5:36 AM CDT Boubacar Brcok M.D. LAB BLOOD ADD-ON [facility] [address] [place] [address], [facility] [address] [place] [address] * (ABNORMAL) APTT (Activated Partial Thromboplastin Time) (08/18/2023 10:03 PM CDT) Pathologist [facility] Activated Partial Thrombopl Time, P 63(H) 25 - 37 sec 08/18/2023 10:41 PM CDT DTL Blood (Blood, Venous) 08/18/2023 10:03 PM CDT 08/18/2023 10:19 PM CDT Boubacar Brock M.D. LAB BLOOD ADD-ON Performing Organization Address City/[facility]/ZIP Co de Phone Number [facility] [address] [place] [address], [facility] [address] [place] [address] * (ABNORMAL) APTT (Activated Partial Thromboplastin Time) (08/18/2023 2:50 PM CDT) Activated Partial Thrombopl Time, P 64(H) 25 - 37 sec 08/18/2023 3:25 PM CDT DTL Blood (Blood, Venous) 08/18/2023 2:50 PM CDT 08/18/2023 3:07 PM CDT Boubacar Brock M.D. LAB BLOOD ADD-ON Performing Organization Address City/[facility]/ZIP Co de Phone Number [facility] [address] [place], [place] [id number] [place] [address] 200 [place] [address] * (ABNORMAL) APTT (Activated Partial Thromboplastin Time) (08/18/2023 6:42 AM CDT) Activated Partial Thrombopl Time, P 61(H) 25 - 37 sec 08/18/2023 7:28 AM CDT DTL Blood (Blood, Venous) 08/18/2023 6:42 AM CDT 08/18/2023 7:04 AM CDT Boubacar Brock M.D. LAB BLOOD ADD-ON [facility] [address] [place], [place] [id number] [place] [address] [address] [place] [address] * (ABNORMAL) APTT (Activated Partial Thromboplastin Time) (08/17/2023 11:04 PM CDT) Activated Partial Thrombopl Time, P 40(H) 25 - 37 sec 08/17/2023 11:46 PM CDT DTL Blood (Blood, Venous) 08/17/2023 11:04 PM CDT 08/17/2023 11:31 PM CDT Boubacar Brock M.D. LAB BLOOD ADD-ON [facility] [address] [place] [address], [place] DTL [facility] [address] [place] [address] * US Lower Extremity Veins Bilateral (08/17/2023 [...] and management can be found on the [employer] site. Link [email or web address]/[email or web address] Findings discussed with ??Tayler Greenwood, ?? ([id number]) on 08/17/2023 7:11 PM. Procedure Note Jj [...] thrombosis and management can be found on the[employer] site. [email or web address] [email or web address] Findings discussed with Tayler Greenwood MD ([id number]) on 08/17/2023 7:11 PM. IMPRESSION: 1. Aging, [...] CDT Paula Hernandez M.D. LAB BLOOD ADD-ON [facility] [address] [place] [address], [facility] [address] [place] [address] * ECG 12 Lead (08/16/2023 9:43 PM CDT) Ventricular Rate ECG/Min 134 BPM MUSE WV Interval 136 ms MUSE QRSD Interval 76 ms MUSE QT Interval 298 ms MUSE QTC Interval 445 ms MUSE P Trout 29 degrees MUSE R Trout -6 degrees MUSE T Wave Trout 21 degrees MUSE 08/16/2023 9:43 PM CDT [...] CDT Geneva Azar M.D. LAB BLOOD ADD-ON [facility] [address] [place] [address], [facility] DTL [facility] [address] [place] [address] * (ABNORMAL) Basic Metabolic Panel (08/16/2023 9:40 [...] CDT Geneva Azar M.D. [place] [address], [facility] 200 [place] [address] * Transfuse Red Blood Cells : (08/16/2023 12:04 PM CDT) Corin Ring M.D. BLOOD TRANSFUSION OR DERABLES * Transfuse Red Blood Cells : , 1 Units (08/16/2023 12:04 PM CDT) Corin Ring M.D. BLOOD TRANSFUSION OR DERABLES * (ABNORMAL) Basic Metabolic Panel (08/16/2023 3:10 AM CDT) Pathologist [facility] Potassium, S 4.2 3.6 - 5.2 mmol/L [...] CDT Paula Hernandez M.D. LAB BLOOD ADD-ON [facility] [address] [place] [address], [facility] [address] [place] [address] * (ABNORMAL) CBC without Differential (08/16/2023 3:10 [...] CDT Paula Hernandez M.D. LAB BLOOD ADD-ON [facility] [address] [place] [address], [facility] [address] [place] [address] * (ABNORMAL) CBC with Differential, Blood (08/15/2023 [...] Carlos Alberto Henson M.D. LAB BLOOD ADD-ON [facility] [address] [place] [address], [facility] DTL [facility] [address] [place] [address] DHPM [facility] [address] [place] [address] * DX Abdomen 1 View (08/15/2023 1:19 [...] CDT 08/15/2023 12:03 PM CDT Rae Gonzalez FUND CONTROLLER, SUPERVISOR DOG LICENSE OFFICER, DNAP LAB BLOO D NON ADD-ON [facility] [address] [place] [address] * Lactate, B - Intra-op (08/15/2023 11:56 AM CDT) [facility] Lactate, B 1.1 0.5 - 2.2 mmol/L 08/15/2023 12:06 PM CDT STMA Blood (Blood, Venous) 08/15/2023 11:56 AM CDT 08/15/2023 12:03 PM CDT Hayde Song M.D. LAB BLOOD NON ADD-O N [facility] [address] [place] [address] * (ABNORMAL) Glucose, Whole Blood (08/15/2023 11:56 AM CDT) Pathologist [facility] Glucose 144(H) 70 - 140 mg/dL 08/15/2023 12:06 PM CDT STMA Blood (Blood, Arterial Line) 08/15/2023 11:56 AM CDT 08/15/2023 12:03 PM CDT Hayde Song M.D. LAB BLOOD ADD-ON [facility] [address] [place] [address], [facility] [address] [place] [address] * Potassium, Blood (08/15/2023 11:56 AM CDT) Potassium, B 4.3 3.6 - 5.2 mmol/L 08/15/2023 12:07 PM CDT STMA Blood (Blood, Arterial Line) 08/15/2023 11:56 AM CDT 08/15/2023 12:03 PM CDT Hayde Song M.D. LAB BLOOD NON ADD-O N Performing Organization Address City/[facility]/ZIP Co de Phone Number [facility] [address] [place] [address], [facility] [address] [place] [address] * Sodium, B (08/15/2023 11:56 AM CDT) Sodium, B 135 135 - 145 mmol/L 08/15/2023 12:06 PM CDT STMA Blood (Blood, Arterial Line) 08/15/2023 11:56 AM CDT 08/15/2023 12:03 PM CDT Hayde Song M.D. LAB BLOOD NON ADD-O N [facility] [address] [place] [address], [facility] [address] [place] [address] * (ABNORMAL) Calcium, Ionized (08/15/2023 11:56 AM CDT) Calcium, Ionized, B 4.53(L) 4.65 - 5.30 mg/dL 08/15/2023 12:07 PM CDT STMA Blood (Blood, Arterial Line) 08/15/2023 11:56 AM CDT 08/15/2023 12:03 PM CDT Hayde Song M.D. LAB BLOOD NON ADD-O N [facility] [address] [place] [address], [facility] STMA [facility] [address] [place] [address] * (ABNORMAL) Blood Gas with Coox, Arterial [...] BLOOD NON ADD-O N Performing Organization Address City/[facility]/ZIP Co de Phone Number [facility] [address] [place] [place] [address] [place] [address] 200 [place] [address] * FL Fluoro Less Than 1 Hour (08/15/2023 11:22 AM CDT) Narrative 152 HOS LOS RST - 08/15/2023 11:24 AM CDT This exam does not require a radiologist review or interpretation. Please refer to the patient's medical record on this date for clinical details. Boubacar Brock M.D. IMG FLUOROSCOPY PROC EDURES Performing Organization Address City/[facility]/ZIP Co de Phone Number 152 [facility] RST * Patient Status (08/15/2023 10:28 AM CDT) Temperature 36.1 37.0 deg C 08/15/2023 10:28 AM CDT STMA FIO2 0.55 0.21=AIR 08/15/2023 10:28 AM CDT STMA Blood 08/15/2023 10:2 8 AM CDT 08/15/2023 10:28 AM CDT Rae Gonzalez FUND CONTROLLER, SUPERVISOR DOG LICENSE OFFICER, DNAP LAB BLOO D NON ADD-ON Performing Organization Address [facility] Co de Phone Number [facility] [address] [place] [address], [facility] 200 [place] [address] * Lactate, B - Intra-op (08/15/2023 10:28 AM CDT) Lactate, B 1.1 0.5 - 2.2 mmol/L 08/15/2023 10:30 AM CDT STMA Blood (Blood, Venous) 08/15/2023 10:28 AM CDT 08/15/2023 10:28 AM CDT Hayde Song M.D. LAB BLOOD NON ADD-O N Performing Organization Address City/[facility]/ZIP Co de Phone Number [facility] [address] [place], [place] [phone] [place] [address] [address] [place] [address] * Glucose, Whole Blood (08/15/2023 10:28 AM CDT) Glucose 134 70 - 140 mg/dL 08/15/2023 10:30 AM CDT STMA Blood (Blood, Arterial Line) 08/15/2023 10:28 AM CDT 08/15/2023 10:28 AM CDT Hayde Song M.D. LAB BLOOD ADD-ON Performing Organization Address City/[facility] Co de Phone Number [facility] [address] [place], [place] [address] [place] [address] 200 [place] [address] * Potassium, Blood (08/15/2023 10:28 AM CDT) Potassium, B 4.1 3.6 - 5.2 mmol/L 08/15/2023 10:31 AM CDT STMA Blood (Blood, Arterial Line) 08/15/2023 10:28 AM CDT 08/15/2023 10:28 AM CDT Hayde Song M.D. LAB BLOOD NON ADD-O N [facility] [address] [place], [place] [address] [address] [place] [address] * Sodium, B (08/15/2023 10:28 AM CDT) Sodium, B 135 135 - 145 mmol/L 08/15/2023 10:30 AM CDT STMA Blood (Blood, Arterial Line) 08/15/2023 10:28 AM CDT 08/15/2023 10:28 AM CDT Hayed Song M.D. LAB BLOOD NON ADD-O N [facility] [address] [place], [place] [phone] [place] [address] [address] [place] [address] * (ABNORMAL) Calcium, Ionized (08/15/2023 10:28 AM CDT) Calcium, Ionized, B 4.25(L) 4.65 - 5.30 mg/dL 08/15/2023 10:31 AM CDT STMA Blood (Blood, Arterial Line) 08/15/2023 10:28 AM CDT 08/15/2023 10:28 AM CDT Hayde Song M.D. LAB BLOOD NON ADD-O N Performing Organization Address City/[facility] Co de Phone Number [facility] [address] [place], [place] [address] [place] [address] [address] [place] [address] * (ABNORMAL) Blood Gas with Coox, Arterial [...] BLOOD NON ADD-O N Performing Organization Address City/[facility]/ZIP Co de Phone Number [facility] [address] [place] [address], [facility] STMA [facility] 200 [place] [address] * Bacteria / Yomaira Culture, Blood #2 (08/15/2023 3:33 AM CDT) Pathologist [facility] Bacteria/Leyla da Culture, Blood No growth after 5 days of incubation. 08/20/2023 6:02 AM CDT DTL Blood (Blood, Peripheral Draw) 08/15/2023 3:33 AM CDT 08/15/2023 5:58 AM CDT Comment:Specimen Source Site : Blood Narrative [facility] - 08/20/2023 6:02 AM CDT Received Bactec aerobic and Bactec anaerobic bottles Carlos Alberto Henson M.D. LAB MICROBIOLOGY - G ENERAL ORDERABLES Performing Organization Address City/[facility]/ZIP Co de Phone Number [facility] [address] [place] [address], [facility] DTL [facility] [address] [place] [address] * (ABNORMAL) Basic Metabolic Panel (08/15/2023 3:31 [...] Jakob De Paz M.D. [place] [address], [facility] 200 [place] [address] * Bacteria / Yomaira Culture, Blood #1 (08/15/2023 3:31 AM CDT) Bacteria/Leyla da Culture, Blood No growth after 5 days of incubation. 08/20/2023 6:02 AM CDT DTL Blood (Blood, Peripheral Draw) 08/15/2023 3:31 AM CDT 08/15/2023 5:59 AM CDT Comment:Specimen Source Site : Blood Carlos Alberto Henson M.D. LAB MICROBIOLOGY - G ENERAL ORDERABLES [facility] [address] [place] [address], [facility] DTL [facility] [address] [place] [address] * (ABNORMAL) CBC with Differential, Blood (08/15/2023 [...] Carlos Alberto Henson M.D. LAB BLOOD ADD-ON [facility] [address] [place] [address], [place] DTL [facility] [address] [place] [address] DHPM [facility] [address] [place] [address] * (ABNORMAL) CBC with Differential, Blood (08/14/2023 8:08 PM CDT) [facility] Signature Hemoglobin 9.8(L) 13.2 - 16.6 g/dL 08/14/2023 [...] Carlos Alberto Henson M.D. LAB BLOOD ADD-ON [facility] [address] [place] [address], [facility] STMA [facility] [address] [place] [address] DHPM [facility] [address] [place] [address] * Transfuse Red Blood Cells : , [...] Carlos Alberto Henson M.D. LAB BLOOD ADD-ON [facility] [address] [place] [address], [facility] STMA [facility] 200 [place] [address] DHPM [facility] 200 [place] [address] * (ABNORMAL) Basic Metabolic Panel (08/14/2023 3:18 [...] Carlos Alberto Henson M.D. LAB BLOOD ADD-ON [address] [place] [address] * Type and Screen (with Reflex Antibody ID) (08/13/2023 7:35 PM CDT) Pathologist [facility] ABORh O Pos Not applicable 08/13/2023 7:58 PM CDT STRM Antibody Screen Negative Negative 08/13/2023 8:13 PM CDT STRM Type & Screen Expiration 08/16/2023 23:59 08/13/2023 7:58 PM CDT STRM Testing Location [place] DEFAULT 08/13/2023 7:39 PM CDT STRM Blood (Blood, Venous) 08/13/2023 7:35 PM CDT 08/13/2023 7:39 PM CDT Carlos Alberto Henson M.D. LAB BLOOD BANK TEST ORDERABLES [facility] [address] STRM [facility] 200 [place] [address] * (ABNORMAL) Bacteria / Yomaira Culture, Blood #1 (08/13/2023 7:35 PM CDT) Pathologist [facility] Bacteria/Cand jessica Culture, Blood ESCHERICHIA COLI Growth after 11 Hours (A) 08/16/2023 11:17 AM CDT DTL Comment: 3 of 3 Bottles, Susceptibilities performed on another specimen [id number] Blood (Blood, Peripheral Draw) 08/13/2023 7:35 PM CDT 08/13/2023 8:15 PM CDT Comment:Specimen Source Site : Blood Carlos Alberto Henson M.D. LAB MICROBIOLOGY - G ENERAL ORDERABLES Performing Organization Address [facility] Co de Phone Number [facility] [address] [facility] 200 [place] [address] * ECG 12 Lead (08/13/2023 7:02 PM CDT) Pathologist [facility] Ventricular Rate ECG/Min 128 BPM MUSE WV Interval 138 ms MUSE QRSD Interval 64 ms MUSE QT Interval 304 ms MUSE QTC Interval 443 ms MUSE P Trout 45 degrees MUSE R Trout 34 degrees MUSE T Wave Trout 46 degrees MUSE 08/13/2023 7:02 PM CDT 08/13/2023 7:13 PM CDT Impressions MUSE - 08/13/2023 7:13 PM CDT Sinus tachycardia Otherwise normal ECG No previous ECGs available Reviewed by BETTY Walton Narrative Procedure Note Lucas Lee M.D. - 08/13/2023 IMPRESSION: Sinus tachycardia Otherwise normal ECG No previous ECGs available Reviewed by BETTY Walton Naba Nimesh M.B.B.S. ECG ORDERABLES MUSE NA * CT Cystogram [...] CDT Comment:Specimen Source Site : Blood Narrative [facility] - 08/16/2023 11:17 AM CDT [...] - G ENERAL ORDERABLES Performing Organization Address City/[facility] Co de Phone Number [facility] [address] [place] [address], [facility] [address] [place] [address] * Magnesium (08/13/2023 5:27 PM CDT) Magnesium, S 1.9 1.7 - 2.3 mg/dL 08/13/2023 6:12 PM CDT DTL Blood (Blood, Venous) 08/13/2023 5:27 PM CDT 08/13/2023 5:58 PM CDT Carlos Alberto Henson M.D. LAB BLOOD ADD-ON Performing Organization Address [facility] Co de Phone Number [facility] [address] [place] [address], [facility] [address] [place] [address] * (ABNORMAL) Hepatic Function Panel (08/13/2023 5:27 [...] Carlos Alberto Henson M.D. LAB BLOOD ADD-ON [facility] [address] [place] [address], [facility] [address] [place] [address] * (ABNORMAL) Basic Metabolic Panel (08/13/2023 5:27 [...] M.D. LAB BLOOD ADD-ON Performing Organization Address City/[facility] Co de Phone Number [facility] [address] [place], [place] [id number] [place] [address] [address] [place] [address] * Prothrombin Time (PT) (08/13/2023 5:27 PM [...] M.D. LAB BLOOD ADD-ON Performing Organization Address City/[facility]/ZIP Co de Phone Number [facility] [address] [place] [address], [facility] [address] [place] [address] * (ABNORMAL) CBC with Differential, Blood (08/13/2023 [...] Carlos Alberto Henson M.D. LAB BLOOD ADD-ON [facility] [address] [place] [address], [facility] STMA [facility] [address] [place] [address] [facility] [address] [place] [address] * (ABNORMAL) Dipstick, Urine (08/13/2023 5:07 PM [...] M.D. LAB URINE ORDERABLES Performing Organization Address City/[facility]/ZIP Co de Phone Number [facility] [address] [place] [address] * Osmolality, Urine (08/13/2023 5:07 PM CDT) Pathologist [facility] Osmolality, U 351 150 - 1150 mOsm/kg 08/13/2023 7:46 PM CDT DTL Urine 08/13/2023 5:07 PM CDT 08/13/2023 5:45 PM CDT Carlos Alberto Henson M.D. LAB URINE ORDERABLES Performing Organization Address City/[facility]/ZIP Co de Phone Number [facility] [address] [place] [address] * (ABNORMAL) Microscopic Manual (08/13/2023 5:07 PM CDT) Pathologist [facility] Microscopy Abnormal 08/13/2023 7:57 PM CDT DTL RBC >100(A) <3 /hpf 08/13/2023 7:57 PM CDT DTL Dysmorphic RBC <25 <25 % 08/13/2023 7:57 PM CDT DTL WBC 51-100(A) /hpf 08/13/2023 7:57 PM CDT [facility] Comment: ----REFERENCE VALUE---- <4 ??(Males) <11 (Females) Urine 08/13/2023 5:07 PM CDT 08/13/2023 5:45 PM CDT Carlos Alberto Henson M.D. LAB URINE ORDERABLES Performing Organization Address City/[facility] Co de Phone Number [facility] [address] [place] [address] * pH, Random, Urine (08/13/2023 5:07 PM CDT) pH, Random, U 7.0 4.5 - 8.0 08/13/2023 7:46 PM CDT [facility] Urine 08/13/2023 5:07 PM CDT 08/13/2023 5:45 PM CDT Carlos Alberto Henson M.D. LAB URINE ORDERABLES Performing Organization Address [facility] de Phone Number [facility] [address] [place] [address] * (ABNORMAL) Bacterial Culture, Aerobic + Susceptibility, Urine (08/13/2023 5:07 PM CDT) Urine Culture ESCHERICHIA COLI >100,000 cfu/mL (A) 08/15/2023 2:54 PM CDT DT Urine (Urine, Midstream) 08/13/2023 5:07 PM CDT [...] Carlos Alberto Henson M.D. LAB MICROBIOLOGY - [facility] ORDERABLES [facility] [address] [place] [address], [place] DTL [facility] [address] [place] [address] * (ABNORMAL) Urinalysis, with Microscopic: Urine, Midstream [...] CDT DTL Predicted 24 [place] [address](H) <229 mg/24 h 08/13/2023 8:50 PM CDT DTL Predicted Range [id number] mg/24 h 08/13/2023 8:50 PM CDT DTL Comment Micro done on <2.5 mL 08/13/2023 7:55 PM CDT DTL Urine (Urine, Midstream) 08/13/2023 5:07 PM CDT 08/13/2023 5:44 PM CDT Carlos Alberto Henson M.D. LAB URINE ORDERABLES [facility] [address] [place] [address], [facility] [address] [place] [address] * Interpretation of Outside CT Abdomen and [...] last modification) on Tue08/17/23 at 1100 Given 08/20/2023 4:10 PM CDT 650 mg Given 08/20/2023 10:27 AM CDT 650 mg Given 08/20/2023 5:57 AM CDT 650 mg acetaminophen tablet 650 mg (TYLENOL) 650 mg, gastric tube, Every 6 hours, First dose (after last modification) on Tue08/20/23 at 2300 Given 08/23/2023 11:41 AM CDT [...] Minutes, Every 24 hours, First dose on 08/15/23 at 2000, Drug Monitoring Program: Pharmacist to [...] 0745, For 1 day 14 hours New Bag 08/22/2023 4:48 AM CDT 100 mL/hr 100 mL/hr New Bag 08/21/2023 6:02 PM CDT 100 mL/hr 100 mL/hr New Bag 08/21/2023 8:54 AM CDT 100 mL/hr 100 [...] use home supply. 08/17/23: Id'ed by [facility]. [facility] Rx# [id number], filled 07/22/23. HAZARDOUS - Handle with care. Swallow whole. Do NOT crush, chew or open capsule. Given 08/26/2023 9:12 AM CDT 120 mg Given 08/25/2023 9:08 AM CDT 120 mg Given 08/24/2023 9:12 AM CDT 120 mg fat emulsion [id number] & fish oil infusion 50 g (SMOFlipid) [...] Ringer's 100 mL/hr, intravenous, Continuous, Starting on Tue08/20/23 at 0845 New Bag 08/21/2023 4:29 AM CDT 100 mL/hr 100 mL/hr New Bag 08/20/2023 6:45 PM CDT 100 mL/hr 100 mL/hr New Bag 08/20/2023 8:44 AM CDT 100 mL/hr 100 mL/hr Lactated Ringer's 1.5 mL/kg/hr ? 75 kg [place] weight (112.5 mL/hr, rounded to 113 mL/hr), intravenous, Continuous, Starting on Tue08/22/23 at 1030, Conditional Phase Pre-Gastrografin Administration. (Rate = 1.5 mL/kg/hr ideal body weight) Lactated Ringer's 0.75 mL/kg/hr ? 75 kg [place] weight (56.25 mL/hr, rounded to 56.3 mL/hr), [...] with starch-based thickened liquids., On hold since Tue08/20/2023 at 2000 until manually unheld Given 08/20/2023 [...] 1:13 PM CDT 10 mEq 100 mL/hr New Bag 08/22/2023 12:11 PM CDT 10 mEq 100 mL/hr New Bag 08/22/2023 9:19 AM CDT 10 mEq 100 mL/hr potassium chloride IVPB 10 mEq 10 mEq, intravenous, at 100 mL/hr, Administer over 60 Minutes, Every 1 hour, First dose (after last reorder) on Tue08/23/23 at 1230, For 4 doses, For K 3-3.4 mEq/L - give total of 40 mEq, Monitor the following for replacement: Potassium, Replace Potassium per: Standard Schedule 08/23/2023 6:08 PM CDT 10 mEq 100 [...] phosphate/hr, Monitor the following for replacement: Phosphorus 08/23/2023 8:05 AM CDT 30 mmol 116 mL/hr potassium phosphates 30 mmol in NaCl 0.9% IVPB 30 mmol (rounded from 22.8 mmol = 0.25 mmol/kg ? 91.2 kg Dosing weight), intravenous, at 116 mL/hr, Administer over 4.4 Hours, Once, On Tue08/24/23 at 0630, For 1 dose, Peripheral Line: Administrater at 6.8 mmoL phosphate/hr, Monitor the following for replacement: Phosphorus 08/24/2023 7:47 AM CDT 30 mmol 116 [...] dinner, First dose (after last modification) on Tue08/21/23 at 0700, Administer with water at least [...] Howe R.N.)1242 (Given - Provider: Tayler Forrest RJonahNJonah)1831 (Given - Provider: Mary Rosado RNarendra) 0019 (Not Given - Provider: Fatuma See R.N. - Reason: Patient/family refused)0639 (Given - Provider: Fatuma See R.N.)1136 (Given - Provider: Tayler Forrest RJonahNJonha)1750 (Not Given - Provider: Paola Salazar R.N. - Reason: Patient/family refused)2349 (Not Given - Provider: Edith Simental RNarendra - Reason: Patient/family refused) 0624 (Given - Provider: Edith Simental RJonahNJonah)1244 (Not Given - Provider: Lupe Valdez R.N. - Reason: Patient/family refused) bisacodyL suppository 10 mg (DULCOLAX) 10 mg, rectal, 2 times daily, First dose (after last reorder) on Tue08/26/23 at 0800 0915 (Given - Provider: Lupe Valdez RNarendra)1357 (Not Given - Provider: Lupe Valdez R.N. [...] Howe R.N.)1521 (Given - Provider: Mary Rosado RNarendra) 0640 (Given - Provider: Fatuma See R.N.)1750 (Given - Provider: Paola Salazar R.N.) 0627 (Given - Provider: Edith [...] - Reason: Patient/family refused)2150 (Given - Provider: Fatuma See R.N.) 0852 (Not Given - Provider: Tayler Forrest R.N. - Reason: Patient/family refused)2131 (Given - Provider: Paola Salazar R.N.) 0915 (Given - Provider: Luep Valdez R.N.) enzalutamide capsule 120 mg (XTANDI) PATIENT'S OWN MED 120 mg, oral, Daily, First dose (after last modification) on Tue08/17/23 at 1230, Patient may use home supply. 08/17/23: Id'ed by SISI. [facility] Rx# [id number], filled 07/22/23. HAZARDOUS - Handle with care. Swallow whole. Do NOT crush, chew or open capsule. 0912 (Given - Provider: Tayler Forrest R.N. - Comment: Pat Murray, -2nd RN) 0908 (Given - Provider: Tayler Forrest R.N. - Comment: Pt 's own med from home) 0912 (Given - Provider: Lupe Valdez R.N.) fat emulsion [id number] & fish oil infusion 50 g (SMOFlipid) [...] Tayler Forrest R.N. - Comment: verified by Paola Salazar, RN)2127 (Stopped - Provider: Paola Salazar R.N.) lidocaine 5 % 1 patch [...] Provider: Tayler Forrest R.N.)2131 (Given - Provider: Paola Salazar R.N.) 0915 (Given - Provider: Lupe [...] Vieira M.D., M.S.)2099 (Not Given - Provider: Paola Salazar R.N. - Reason: See Provider Order) [...] Tue08/26/23 at 0930 0939 (Given - Provider: Lupe Valdez R.N.) rosuvastatin tablet 40 mg (CRESTOR) 40 [...] Provider: Fatuma See R.N.)1749 (Given - Provider: Paola Salazar R.N.) 0626 (Given - Provider: Edith Simental R.N.)1600 (Due) Continuous Medication Order 08/24/2023 08/25/2023 08/26/2023 Adult central parenteral nutrition (CPN) () intravenous, at 41.7 mL/hr, Administer over 24 Hours, Continuous PN, Starting on Tue08/24/23 at 2100, For 24 hours, Use a 0.22 micron filter., Indication: Small bowel obstruction (distal) 2155 (New Bag - Provider: Fatuma See R.N.) 154 (Handoff - Provider: aTyler Forrest R.N. - Comment: verified by Paola Salazar, RN)2126 (Stopped - Provider: Paola Salazar R.N.) Adult central parenteral nutrition (CPN) intravenous, at 41.7 mL/hr, Administer over 24 Hours, Continuous PN, Starting on Tue08/25/23 at 2100, For 24 hours, Use a 0.22 micron filter., Indication: Small bowel obstruction (distal) 2127 (New Bag - Provider: Paola Salazar R.N.) 1134 (Stopped - Provider: Lupe [...] Tayler Forrest R.N. - Comment: verified by Paola Salazar RN)2124 (New Bag - Provider: Paola Salazar R.N.)2321 (Handoff - Provider: Edith Simental R.N. - Comment: herbert knight RN) 0407 (Rate/Dose Change - Provider: Edith Simental R.N.)0729 (Handoff - Provider: Lupe Valdez R.N. - Comment: Verified with JAMEL Sharma)1153 (Stopped - Provider: Lupe Valdez R.N.) Lactated Ringer's 1.5 mL/kg/hr ? 75 kg [place] weight (112.5 mL/hr, rounded to 113 mL/hr), intravenous, Continuous, Starting on Tue08/22/23 at 1030, Conditional Phase Pre-Gastrografin Administration. (Rate = 1.5 mL/kg/hr ideal body weight) Lactated Ringer's 0.75 mL/kg/hr ? 75 kg [place] weight (56.25 mL/hr, rounded to 56.3 mL/hr), [...] 1547 documented in this encounter Care Teams Energy Infrastructure Engineer Relationship Specialty Start Date End Date Elsewhere, Pcp PCP - General Internal Medicine 08/13/23 documented as of this encounter
--- OUTSIDE RECORDS SUMMARY | 2023-08-30 16:47 | XMS_ITS | Encounter Summary ---
Author Name Unknown Organization [facility] Address [address] [place] [address] Care Team Providers Care 8Th Grade Teacher Name Role Phone Elsewhere, Pcp Primary Care Provider Unavailabl e Encounter Details Date Type Department Care Team (Late st Contact Info) Description 08/23/2023 12:45 AM CDT Ancillary Procedure Department of Nursing Social History Tobacco Use Types Packs/Day Years Used Date Smoking Tobacco: Never Smokeless Tobacco: Never [facility] Utilities Answer Date Recorded In the past 12 months has [facility] electric, gas, oil, or water company [...] your living situation today? I have a [facility] place to live 08/13/2023 Sex and Gender Information Value Date Recorded Sex Assigned at Not on file Gender Identity Not on file Sexual Orientation Not on file documented as of this encounter Plan of Treatment Upcoming Encounters Date Type Department Care Team (Late st Contact Info) Description 09/07/2023 11:00 AM CDT Procedure visit Department of Urology in [place], [place] [address] [place] [address] Sima Venegas M.D. [address] [place] [address] documented as of this encounter Procedures Procedure [...] on filedocumented in this encounter Care Teams 8Th Grade Teacher Relationship Specialty Start Date End Date Elsewhere, Pcp PCP - General Internal Medicine 08/13/23 documented as of this encounter
--- OUTSIDE RECORDS SUMMARY | 2023-08-30 16:48 | XMS_ITS | Encounter Summary ---
Author Name Unknown Organization [facility] Address [address] [place] [address] Care Team Providers Care Tractor Mechanic Helper Name Role Phone Elsewhere, Pcp Primary Care Provider Unavailabl e Encounter Details Date Type Department Care Team (Late st Contact Info) Description 08/15/2023 7:55 AM CDT - 08/15/2023 11:23 AM CDT Surgery RST ROMB MAIN OR [address] [place] [address] Boubacar Brock M.D. [address] [place] [address] Palliative EXPLORATORY LAPAROTOMY, CYSTOTOMY CLOSURE, RIGHT URETERAL STENT EXCHANGE Social History Tobacco Use Types Packs/Day Years Used Date Smoking Tobacco: Never Smokeless Tobacco: Never [facility] Utilities Answer Date Recorded In the past 12 months has [facility] [employer], gas, oil, or water [employer] threatened to shut off services in your [...] your living situation today? I have a [facility] place to live 08/13/2023 Sex and [...] AM CDT DISCHARGE SUMMARY BRIEF OVERVIEW Hospital: [facility] Discharge Provider: Boubacar Brock M.D. Primary [...] M.D.Wen, Lexiaochuan, M.D.Premo, Hayley, M.D.Botkin, Hannah, M.D. [facility] ROM[facility] OR DISCHARGE DISPOSITION Home or Self Care [1] ACTIVE ISSUES REQUIRING FOLLOW UP OUTPATIENT FOLLOW UP Scheduled Appointments 08/26/2023 1:00 PM IR [facility] Radiology For appointment details refer to your [...] he felt completely obstructed and presented to [place]. [place] Course Attempted Tabares insertion but bladder irrigation was unsuccessful on multiple attempts. Hung 1U pRBC's. Given some volume and transferred to [facility] ICU ICU Course Urology consulted and were [...] CONSULT TO NUTRITION SUPPORT IP CONSULT TO BAG MAKER WOUND CARE CONDITION AT DISCHARGE stable Discharge [...] he felt completely obstructed and presented to [place] ED. [place] Course Attempted Tabares insertion but bladder irrigation was unsuccessful on multiple attempts. Hung 1U pRBC's. Given some volume and transferred to [facility] ICU ICU Course Urology consulted and were [...] Care Everywhere. * Bacitracin (On the skin) (Malaysian) * Cefdinir (By mouth) (Malaysian) * Trospium (By mouth) (Malaysian) documented in this encounter Medications at Time [...] another provider. * Chary Diamond M.A., O.T., [facility] - 08/26/2023 10:21 AM CDT Occupational Therapy [facility] Inpatient Treatment SUBJECTIVE Patient's Name: Kalen Vega Referring/Attending Provider: Boubacar Brock M.D. Reason for Referral: Occupational Therapy Evaluation and Treatment History of Present Illness: Kalen Vega is a 83 y.o. male who was admitted to [facility] in [place] on 08/13/2023 for Hematuria [R31.9]. Precautions Other Precautions: Abdominal, fall precautions, monitor tachycardia and hypertension Pain Assessment: Pain not reported during session. Subjective Comments: Agreeable to therapy session. Team Communication: The patient's status was discussed and coordination of care occurred with RN, Family/Caregiver, nurse tech Family/Caregiver Present: son and [id number] OBJECTIVE Vital Signs: Vitals not formally assessed during session. No concerns during chart review and the patient had nosigns or symptoms consistent with vital changes during therapy session. Outcome Measures: [facility] Inpatient Short Form: Putting on and taking [...] at or below 17 Clinicians answer the [facility] Inpatient Short Form based on observed patient [...] through pant leg first. - Adaptive Equipment: Vba Developer TOILETING - Assist Level: Maximal Assist - [...] (Edge of bed) - Assist Level: Modified Emanuel - Equipment: bed rail - Therapist Delivery: assessed, instructed, assisted - Adaptive Equipment: leg private eye trialed ; however, patient able to move [...] extremity (stiff knee) first. Recommended adaptive equipment: Vba Developer. Toileting - Patient instructed on accurate positioning [...] maximal exertion Handouts provided: Bathroom Safety Equipment [id number], Techniques to Help You Save Energy [id number] Patient was left in bedside chair with [...] health care OBJECTIVE Patient is admitted in [address] -[address] ASSESSMENT / PLAN SEARCH COORDINATORlogistic manager met with patient and son Kar to inform them of home health care acceptance for PT/OT. Patient's son Kar and [id number] will provide transportation at the time of discharge. PLAN Patient to discharge home with home health care. Home Medical Care - Admitted Since 08/13/2023 Service Provider Selected Services Address Phone Fax Patient Preferred [facility] [address] [facility] [address] -- Ritual Circumciser: Ghazal NURSING: - Complete documentation in the Discharge Navigator including Nursing Report Info and Facility/NextLevel of Care Info - Call report and arrange for the patient's first visit - Send After Visit Summary and required packet of dismissal information with patient, including advance directive. PRIMARY SERVICE: - Please provide a non-[facility] home health order for: physical therapy and [...] be provided by family--patient's son Kar and [id number]. 3. compressor stations superintendent recommended reaching out to family, friends, and neighbors for assistance. 4. compressor stations superintendent provided information regarding the dismissal process. Damaris [...] Reviewed with patient #1 Hematuria Please page [facility] ([phone]) or [facility] ([phone]) Nutrition Support Service pager with questions. * Emeterio Buchanan PCarlos, D.P.T., [facility] - 08/25/2023 9:35 AM CDT Physical Therapy Inpatient Treatment SUBJECTIVE Patient's Name: Kalen Vega Referring/Attending Provider: Boubacar Brock M.D. Reason for Referral: Physical Therapy Evaluate and Treat History of Present Illness: Kalen Vega is a 83 y.o. male who was admitted to [facility] in [place] on 08/13/2023 for Hematuria [R31.9] Precautions Other [...] throughout session; within normal ranges. Outcome Measures: [facility] Inpatient Short Form: [facility] Basic Mobility (V.2) How much help from [...] 3-5 steps with a railing?: A Little [facility] Basic Mobility (V.2) Raw Score: 18 [facility] Basic Mobility (V.2) Standardized Score: 41.05 Interpretation: Based on scoring guidelines using the raw score value: Those going to home had an average score at or above 18 Those going to facility had an average score at or below 17 Clinicians answer the [facility] Inpatient Short Form based on observed patient activity and/or clinical judgement (ie. patient can be scored without physically performing each activity) Therapeutic Interventions: SIT TO STAND x3: Assistance Level: Supervision static safe house fit with adult there which they usually [place]'s with a difference educated fully know who [...] - 08/25/2023 9:18 AM CDT Occupational Therapy [facility] Inpatient Treatment SUBJECTIVE Patient's Name: Kalen Vega Referring/Attending Provider: Boubacar Brock M.D. Reason for Referral: Occupational Therapy Evaluation and Treatment History of Present Illness: Kalen Vega is a 83 y.o. male who was admitted to [facility] in [place] on 08/13/2023 for Hematuria [R31.9]. Precautions Other Precautions: Abdominal, fall precautions, monitor tachycardia and hypertension Pain Assessment: Pain not reported during session. Subjective Comments: Agreeable to therapy session. Team Communication: The patient's status was discussed and coordination of care occurred with RN, PT OBJECTIVE Vital Signs: Vitals monitored throughout session; within normal ranges. Outcome Measures: [facility] Inpatient Short Form: Putting on and taking [...] at or below 17 Clinicians answer the [facility] Inpatient Short Form based on observed patient [...] including figure four technique. Recommended adaptive equipment: Vba Developer and Sock Aid. Toileting - Patient instructed [...] and modification tools as needed including leg private eye and/or bed adjustments. Bathroom DME: - Educated [...] in place draining clear yellow urine I/O ([id number]): Fifty-five cc serosanguineous from the drain 1 [...] locallyfor CBI. He was subsequently transferred to [facility] 08/12 for difficulty irrigating his catheter [...] have him follow up with his local graphics software engineer Comorbidities: --history of DVT status post IVC [...] discussed with Dr. Venegas, chief urology resident flight control tower operator. Pager during business hours: [phone] Pager after hours: [phone] * Emeterio Buchanan P.T., D.P.T., [facility] - 08/24/2023 10:46 AM CDT Physical Therapy Inpatient Treatment SUBJECTIVE Patient's Name: Kalen Vega Referring/Attending Provider: Boubacar Brock M.D. Reason for Referral: Physical Therapy Evaluate and Treat History of Present Illness: Kalen Vega is a 83 y.o. male who was admitted to [facility] on 08/13/2023 for Hematuria [R31.9] Precautions Other [...] %, and O2flow: Room air Outcome Measures: [facility] Inpatient Short Form: -[facility] Basic Mobility (V.2) How much [...] 3-5 steps with a railing?: A Lot -[facility] Basic Mobility (V.2) Raw Score: 17 -[facility] Basic Mobility (V.2) Standardized Score: 39.67 Interpretation: Based on scoring guidelines using the raw score value: Those going to home had an average score at or above 18 Those going to facility had an average score at or below 17 Clinicians answer the -[facility] Inpatient Short Form based on [...] baseline. PT Goal #2: Patient will perform rtn-mj-tdjrb transfer with modified independence and least restrictive [...] Total Kcal/day: 1370 based on 84 % [place] Non-standard additives: K 80 mEq Phos 30 [...] magnesium, phosphorus tomorrow. #1 Hematuria Please page [facility] ([phone]) or [facility] ([phone]) Nutrition Support Service pager with questions. * [...] catheter in place draining light smith I/O ([id number]): Forty-two cc serosanguineous from the drain 2.2 [...] locallyfor CBI. He was subsequently transferred to [facility] 08/12 for difficulty irrigating his catheter [...] have him follow up with his local graphics software engineer Comorbidities: --history of DVT status post IVC [...] discussed with Dr. Venegas, chief urology resident flight control tower operator. Pager during business hours: [phone] Pager after hours: [phone] * Deanne Mike L.G.STimi, M.S.W. - 08/23/2023 11:25 AM CDT SUBJECTIVE Social Work spoke with [facility]. They cannot provide prison at this time. [...] anticipated discharge date of 08/24/23-08/26/23. Referrals sent: [facility] - [facility] (out of service area) [facility] - [facility] ASSESSMENT / PLAN ASSESSMENT Patient has robust family support including a son living with him. PLAN Patient desires home health care through [facility]. Social Work will continue to follow to provide support. Social Work will continue to assist with discharge needs. Shorty Sun, M.S.W. 08/23/23 * Jazmine Benítez R.N., C.W.C.N. - 08/23/2023 11:10 AM CDT [facility] Wound RN consulted to assess [...] stent and hematuria who is transferred from [place] ED with 3 days of hematuria and [...] None Unable to Measure Y *Wound Bed Closed;[place];Red Tissue Exposed None Odor None *Exudate Amount [...] 30 minutes > 30 minutes Ongoing management Nursing;Wound/confectionery drops machine operator Partial head to toe skin assessment completed [...] nursing. They agree to the plan. The [facility] RN will sign-off. Please place [...] 83 y.o. male who was admitted to [facility] in [place] on 08/13/2023 for Hematuria [R31.9] Precautions Other [...] air Outcome Measures: AM-PAC Inpatient Short Form: AM-[facility] Basic Mobility (V.2) How much [...] 3-5 steps with a railing?: A Lot [facility] Basic Mobility (V.2) Raw Score: 17 [facility] Basic Mobility (V.2) Standardized Score: 39.67 Interpretation: Based on scoring guidelines using the raw score value: Those going to home had an average score at or above 18 Those going to facility had an average score at or below 17 Clinicians answer the [facility] Inpatient Short Form based on observed patient [...] baseline. PT Goal #2: Patient will perform vdm-gi-cqjef transfer with modified independence and least restrictive [...] Total Kcal/day: 1370 based on 84 % [place] Non-standard additives: MAX chloride Thiamine 100 mg [...] magnesium, phosphorus tomorrow. #1 Hematuria Please page [facility] ([phone]) or [facility] ([phone]) Nutrition Support Service pager with questions. * Ivy Hernandez, O.T. - 08/23/2023 8:30 AM CDT Occupational Therapy [facility] Inpatient Treatment SUBJECTIVE Patient's Name: Kalen Vega Referring/Attending Provider: Boubacar Brock M.D. Reason for Referral: Occupational Therapy Evaluation and Treatment History of Present Illness: Kalen Vega is a 83 y.o. male who was admitted to [facility] in [place] on 08/13/2023 for Hematuria [R31.9]. Precautions Other Precautions: Abdominal, fall precautions, monitor tachycardia and hypertension Pain Assessment: Pain not reported during session. Subjective Comments: Agreeable to therapy session. Team Communication: The patient's status was discussed and coordination of care occurred with RN, PT OBJECTIVE Vital Signs: Vitals monitored throughout session; within normal ranges. Outcome Measures: [facility] Inpatient Short Form: Putting on and taking [...] at or below 17 Clinicians answer the [facility] Inpatient Short Form based on observed patient [...] catheter in place draining clear yellow I/O ([id number]): 73 cc serosanguineous from the drain Seven [...] locallyfor CBI. 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 [facility] Summary: Diet: NPO, TPN Activity: Ad kong [...] discussed with Dr. Venegas, chief urology resident flight control tower operator. Pager during business hours: [phone] Pager after hours: [phone] * Chary Diamond M.A., O.T., BCP - [...] [facility]. Social Work sent referral. OBJECTIVE Patient is anticipated to remain at [facility] for 3-5 days. Referrals sent: [facility] ASSESSMENT / PLAN ASSESSMENT Patient has robust family support including a son living with him. PLAN Patient desires home health care through [facility]. Social Work will continue to follow to provide support. Social Work will continue to assist with discharge needs. Shorty Sun, M.S.W. 08/22/23 * Emeterio Buchanan P.T., D.P.T., [facility] - 08/22/2023 2:27 PM CDT Physical Therapy Inpatient Treatment SUBJECTIVE Patient's Name: Kalen Vega Referring/Attending Provider: Boubacar Brock M.D. Reason for Referral: Physical Therapy Evaluate and Treat History of Present Illness: Kalne Vega is a 83 y.o. male who was admitted to [facility] in [place] on 08/13/2023 for Hematuria [R31.9] Precautions Other [...] hypotension or respiratory distress. . Outcome Measures: [facility] Inpatient Short Form: [facility] Basic Mobility (V.2) How much help from [...] 3-5 steps with a railing?: A Lot -[facility] Basic Mobility (V.2) Raw Score: 17 -[facility] Basic Mobility (V.2) Standardized Score: 39.67 Interpretation: Based on scoring guidelines using the raw score value: Those going to home had an average score at or above 18 Those going to facility had an average score at or below 17 Clinicians answer the [facility] Inpatient Short Form based on observed patient [...] baseline. PT Goal #2: Patient will perform csg-hh-rsegr transfer with modified independence and least restrictive [...] D.P.T., GCS * Demarco Salazar Pharm.D., R.Ph., [facility] - 08/22/2023 10:57 AM CDT Pharmacist [...] Total Kcal/day: 1370 based on 84 % [place] Non-standard additives: MAX chloride Thiamine 100 mg [...] place draining light smith colored urine I/O ([id number]): CBI on slow drip 75 cc serosanguineous [...] locallyfor CBI. He was subsequently transferred to [facility] 08/12 for difficulty irrigating his catheter [...] have him follow up with his local graphics software engineer Comorbidities: --history of DVT status post IVC [...] discussed with Dr. Venegas, chief urology resident flight control tower operator. Pager during business hours: [phone] Pager after hours: [phone] * Qamar Jim, Pharm.D., R.Ph. - 08/21/2023 [...] place draining clear smith colored urine I/O ([id number]): 1800 cc urine output 75 cc serosanguineous [...] locallyfor CBI. He was subsequently transferred to [facility] 08/12 for difficulty irrigating his catheter [...] have him follow up with his local graphics software engineer Comorbidities: --history of DVT status post IVC [...] discussed with Dr. Venegas, chief urology resident flight control tower operator. Pager during business hours: [phone] Pager after hours: [phone] * Lizette Harvey M.D. - 08/20/2023 8:08 [...] draining clear thin merlot colored urine I/O ([id number]): 240 cc p.o. intake 760 cc urine [...] locallyfor CBI. He was subsequently transferred to [facility] 08/12 for difficulty irrigating his catheter [...] have him follow up with his local graphics software engineer Comorbidities: --history of DVT status post IVC [...] questions or concerns. Pager during business hours: [phone] Pager after hours: [phone] * Qamar Jim PharmJonahD., R.Ph. - 08/20/2023 [...] Jim Pharm.D., R.Ph. * Lisa Seaman, O.T., [facility] - 08/19/2023 2:26 PM CDT Occupational Therapy [facility] Inpatient Treatment SUBJECTIVE Patient's Name: Kalen Vega Referring/Attending Provider: Boubacar Brock M.D. Reason for Referral: Occupational Therapy Evaluation and Treatment History of Present Illness: Kalen Vega is a 83 y.o. male who was admitted to [facility] in [place] on 08/13/2023 for Hematuria [R31.9]. Precautions Other [...] at or below 17 Clinicians answer the [facility] Inpatient Short Form based on observed patient [...] about patient's nutritional care please contact pager [phone] on weekdays or [phone] on weekends/holidays. NUTRITION ASSESSMENT: Mr. Vega is [...] care everywhere) ESTIMATED NEEDS: Total Calorie Needs: 5944-0803 calories/day Method to Estimate Energy Needs: kcal/kg [...] 83 y.o. male who was admitted to [facility] in [place] on 08/13/2023 for Hematuria [R31.9] Precautions Other [...] 3-5 steps with a railing?: A Little -[facility] Basic Mobility (V.2) Raw Score: 18 -[facility] Basic Mobility (V.2) Standardized Score: 41.05 Interpretation: Based on scoring guidelines using the raw score value: Those going to home had an average score at or above 18 Those going to facility had an average score at or below 17 Clinicians answer the -[facility] Inpatient Short Form based on [...] Ongoing PT Goal #2: Patient will perform tbc-yh-bascw transfer with modified independence and least restrictive [...] in place draining clear pink urine I/O ([id number]): 370 p.o. intake 1 L urine output [...] locallyfor I. He was subsequently transferred to [facility] 08/12 for difficulty irrigating his catheter [...] 2.5 mg BID eliquis initiated 08/15 per [facility] med curbside recs --transition from eliquis [...] have him follow up with his local graphics software engineer Comorbidities: --history of DVT status post IVC [...] questions or concerns. Pager during business hours: [phone] Pager after hours: [phone] * Lisa Seaman, O.T., [facility] - 08/18/2023 11:15 AM CDT Occupational Therapy [facility] Inpatient Treatment SUBJECTIVE Patient's Name: Kalen Vega Referring/Attending Provider: Boubacar Brock M.D. Reason for Referral: Occupational Therapy Evaluation and Treatment History of Present Illness: Kalen Vega is a 83 y.o. male who was admitted to [facility] in [place] on 08/13/2023 for Hematuria [R31.9]. Precautions Other [...] pressure: 168/97 - nurse notified Outcome Measures: [facility] Inpatient Short Form: Putting on and taking [...] at or below 17 Clinicians answer the [facility] Inpatient Short Form based on observed patient [...] doffing over it last. Recommended adaptive equipment: Vba Developer and Sock Aid. Patient was left in bedside chair, with nursing/MOLDER HAND at end of session with call light [...] 83 y.o. male who was admitted to [facility] in [place] on 08/13/2023 for Hematuria [R31.9] Precautions Other [...] vital signs with primary service. Outcome Measures: -[facility] Inpatient Short Form: AM-[facility] Basic Mobility (V.2) How much [...] 3-5 steps with a railing?: A Little AM-[facility] Basic Mobility (V.2) Raw Score: 18 AM-PAC Basic Mobility (V.2) Standardized Score: 41.05 Interpretation: Based on scoring guidelines using the raw score value: Those going to home had an average score at or above 18 Those going to facility had an average score at or below 17 Clinicians answer the -[facility] Inpatient Short Form based on [...] following coordination of care occurred with the umbrella mender/Caregiver Present: No Patient was left in bedside [...] Progressing PT Goal #2: Patient will perform cmr-xt-llhai transfer with modified independence and least restrictive [...] in place draining clear pink urine I/O ([id number]): 1.2 L p.o. intake 1 L urine [...] locallyfor CBI. He was subsequently transferred to [facility] 08/12 for difficulty irrigating his catheter [...] 2.5 mg BID eliquis initiated 08/15 per [facility] rec --transition from eliquis ppx to [...] questions or concerns. Pager during business hours: [phone] Pager after hours: [phone] * Tayler Greenwood M.D., M.Ed. - 08/17/2023 [...] the patient follow up with his primary graphics software engineer at discharge we will which we will [...] secondary to radiation proctitis requires frequent transfusions. [facility]ed to floor 08/15/23 PMH: Metastatic prostate [...] Ringer's Lactated Ringer's * Lisa Seaman OMarlon., [facility] - 08/17/2023 10:47 AM CDT Occupational Therapy [facility] Inpatient Treatment SUBJECTIVE Patient's Name: Kalen Vega Referring/Attending Provider: Boubacar Brock M.D. Reason for Referral: Occupational Therapy Evaluation and Treatment History of Present Illness: Kalen Vega is a 83 y.o. male who was admitted to [facility] in [place] on 08/13/2023 for Hematuria [R31.9]. Precautions Other Precautions: abdominal; fall risk; watch HR Pain Assessment: Pain not reported during session. Subjective Comments: Patient greeted in bed and agreeable to therapy session. Team Communication: The patient's status was discussed and coordination of care occurred with RN OBJECTIVE Vital Signs: Vitals taken during session: Pulse rate: 102-128 bpm Outcome Measures: [facility] Inpatient Short Form: Putting on and taking [...] at or below 17 Clinicians answer the [facility] Inpatient Short Form based on observed patient [...] in place draining clear pink urine I/O ([id number]): NG tube 200 cc Two hundred sixty-five [...] locallyfor CBI. He was subsequently transferred to [facility] 08/12 for difficulty irrigating his catheter [...] questions or concerns. Pager during business hours: [phone] Pager after hours: [phone] * Audi De Luna P.TJonah, D.P.T. - 08/16/2023 3:05 PM CDT 08/16/23 2085 Reason Therapy Missed Reason Therapy Missed Receiving [...] in place draining clear pink urine I/O ([id number]): NG tube 200 cc Two hundred sixty-five [...] locallyfor CBI. He was subsequently transferred to [facility] 08/12 for difficulty irrigating his catheter [...] questions or concerns. Pager during business hours: [phone] Pager after hours: [phone] * Paula Hernandez M.D. - 08/15/2023 9:09 AM CDT PROGRESS NOTE: No events. AFVSS. Pain controlled. No flatus. No further emesis overnight. Abdomen more distended than yesterday but remained soft, tender to deep palpation only, no rebound. Twenty-four [place]er Alcock three-way catheter remains off CBI, draining [...] for CBI. He was subsequently transferred to [facility] 08/12 for difficulty irrigating his catheter [...] risks associated with surgery and anesthesia including PA, stroke, and VTE were also discussed. Finally, [...] above was discussed with Dr. Brock, urology identity management consultant on-call who is in agreement with [...] Family to bring his home enzalutamide from [place] Irvin Franco Pharm.D., R.Ph. * Jakob De Paz M.D. - 08/14/2023 11:34 AM CDT PROGRESS NOTE: No events. AFVSS. Pain controlled. No flatus. Nauseous and had 2 episodes of emesis. Abdomen more distended than yesterday but remained soft, tender to deep palpation only, no rebound. Twenty-four [place] Alcock three-way catheter remains off CBI, draining [...] for CBI. He was subsequently transferred to [facility] 08/12 for difficulty irrigating his catheter [...] above was discussed with Dr. Brock, urology identity management consultant on-call who is in agreement with [...] Patient discussed with Dr. Sylvester. Page CCM3 [id number] Carlos Alberto Henson M.D. PGY-1 CCM 3 [...] who have asked we place a 24 [place] 3-way urinary catheter pending evaluation. We will [...] stent and hematuria who is transferred from [facility] ED with 3 days of hematuria [...] him to present to local hospital in [place]. OSH Course: His hemoglobin was in the [...] Insecurity: No Food Insecurity (02/16/2022) Received from [facility], [facility] Food Insecurity Worried About Running Out of Food in the Last Year: 1 Transportation Needs: No Transportation Needs (02/16/2022) Received from [facility], [facility] Transportation Needs Lack of Transportation (Medical): 1 Housing Stability: Low Risk (02/16/2022) Received from [facility], [facility] Housing Stability Unable to Pay for [...] Dr. Sylvester and Dr. Rodriguez. Page CCM3 [id number] Carlos Alberto Henson M.D. PGY-1 CCM 3 [...] As expected PRIMARY PROCEDURALIST FAY Cerna MD [phone] ASSISTANTS none COMPLICATIONS None. DRAINS None. IMPLANTS [...] peripheral vein targets. Ultrasound used for assessment: [employer] Provider contacted (include name): Uro Surg Time [...] 14 -- AST U/L 25 -- Radiology: @[id number]@ Swallow Assessment: No data to display ASSESSMENT / PLAN #1 Hematuria ASSESSMENT Currently we are asked to visit with Mr. Vega for consideration of parenteral nutrition. Nutrition Needs: Height: 180 cm Admission Weight: 91.2 kg (08/13/2023) Current Weight: 90.2 kg BMI (Calculated): 27.8 kg/m?? Total Calorie Needs: 1774-7651 calories/day Method to Estimate Energy Needs: [place] ( ) Weight Used for Equation Calculations: [...] on electrolytes Please call NSS pager at [phone] at [facility] or [phone] at [facility] with any additional questions. * Gilbert [...] values in this interval not displayed. Radiology: @[id number]@ Swallow Assessment: No data to display ASSESSMENT / PLAN #1 Hematuria ASSESSMENT Currently we are asked to visit with Mr. Vega for consideration of parenteral nutrition. Nutrition Needs: Height: 180 cm Admission Weight: 91.2 kg (08/13/2023) Current Weight: 90.2 kg BMI (Calculated): 27.8 kg/m?? Total Calorie Needs: 4093-9467 calories/day Method to Estimate Energy Needs: kcal/kg [...] on electrolytes Please call NSS pager at [phone] at [facility] or [phone] at [facility] with any additional questions. BILLING/CODING Total [...] stent along with other stents and apparently graphics software engineer in the past I recommended indefinite dual [...] the history of present illness. @[facility]@ OBJECTIVE Current Facility-Administered Medications: acetaminophen tablet 650 [...] 20 mL/hr, intravenous, Continuous, Pascual, Frieda A, DYEHOUSE WORKER, MILITARY EDUCATION COORDINATOR, Last Rate: 20 mL/hr at 08/15/23 1459, [...] but he can discuss this with his graphics software engineer at home. We need to balance transfusion needs for continued bleedingand risk of recurrent PA if not on Plavix-coronary stents were 6 [...] 83 y.o. male who was admitted to [facility] in [place] on 08/13/2023 for Hematuria [R31.9]. Relevant Medical History: Kalen Vega is a 83 y.o. male who was admitted to [facility] in [place] on 08/13/2023 for Hematuria with cystotomy and [...] walker, Single point cane Adaptive Equipment Owned: Vba Developer, Long Handled Shoe Horn Other DME Owned: [...] heels well perfused and intact. Outcome Measures: -[facility] Inpatient Short Form: -[facility] Basic Mobility (V.2) How much [...] 3-5 steps with a railing?: A Lot [facility] Basic Mobility (V.2) Raw Score: 17 [facility] Basic Mobility (V.2) Standardized Score: 39.67 Interpretation: Based on scoring guidelines using the raw score value: Those going to home had an average score at or above 18 Those going to facility had an average score at or below 17 Clinicians answer the [facility] Inpatient Short Form based on observed patient [...] following coordination of care occurred with the umbrella mender/Caregiver Present: SonFavio Patient was left in bedside [...] 83 y.o. male who was admitted to [facility] in [place] on 08/13/2023 for Hematuria with cystotomy and [...] Min assist for mobility. Required assist for [id number]-zt-[id number] for force generation and is generally standby [...] Ongoing PT Goal #2: Patient will perform [id number] transfer with modified independence and least restrictive [...] - 08/16/2023 10:01 AM CDT Occupational Therapy [facility] Inpatient Evaluation/Treatment SUBJECTIVE Patient's Name: Kalen Vega Referring/Attending Provider: Boubacar Brock M.D. Reason for Referral: Occupational Therapy Evaluation and Treatment PERTINENT MEDICAL / SURGICAL HISTORY: Kalen Vega has no past medical history on file. Kalen Vega has no past surgical history on file. History of Present Illness: Kalen Vega is a 83 y.o. male who was admitted to [facility] in [place] on 08/13/2023 for Hematuria [R31.9]. Relevant Medical [...] with RN, PT Family/Caregiver Present: Son and [id number]-pb-xfh. Home Living and Equipment: Lives with: Spouse/Significant [...] walker, Single point cane Adaptive Equipment Owned: Vba Developer, Long Handled Shoe Horn Other DME Owned: Regular flat bed Prior Level of Function and Mobility: Basic Activities of Daily Living: Independent Instrumental Activities of Daily Living: Required Assistance: Laundry son assists with laundry and cooking Functional Mobility: Independent Driving: Yes Occupational Role: Retired Leisure Interests: watch movies, plays [place] train, meets friends for breakfast. Patient/Caregiver Goals: [...] Wears glasses all the time Outcome Measures: [facility] Inpatient Short Form: Putting on and taking [...] at or below 17 Clinicians answer the [facility] Inpatient Short Form based on observed patient [...] Lisa Seaman O.T., MOT * Sivakumar Parham L.G.S.W., M.S.W. [...] all are a great support. 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 Patient expressed understanding and was agreeable to [...] engaged in conversation with his family when dialysis social worker entered the room. He was engaged in [...] locally at approximately 3:00 a.m. a 22 [place]er three-way catheter was placed and CBI wasinitiated. Unfortunately he clotted off the catheter multiple times despite manual irrigations, started to develop hypotension and tachycardia [facility] He relays the above [...] non-distended, non-peritonitic Extremities: No edema : 22 [place] three-way Tabares catheter draining a minimal amount [...] urinary retention Given his non draining 22 [place] three-way catheter the Urology techs and I subsequently exchanged this for a 24 [place] three-way Alcock in the usual sterile fashion. [...] to follow [place] [phone] with questions or concerns Sixto Cain M.D. [...] peripheral vein targets. Ultrasound used for assessment: [employer] [facility] [employer] Fit Provider contacted (include name): Uro Surg [...] CDT Patient Transfer Note Patient transferred to: [facility] Room: [facility] Accompanied by: JAMEL Garcia Report [...] signs? YES * Sixto Teague, R.R.T., L.R.T., HEALTH DIAGNOSTICS TEACHER-ACCS - 08/14/2023 7:00 AM CDT Patient is [...] the last 24hours. 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 His existing 24 [place] three-way Tabares catheter was noted to be [...] additional tissue for additional coverage. A 24 [place] three-way catheter was placed with 15 cc in the balloon. This irrigated to light clear pink. A 15 [place] YARELI drain wasplaced into the pelvis exiting left lower quadrant. The fascia was closed with interrupted and uuzdca-as-[id number] 0 PDS. Fat was approximated using 3-0 [...] RN, CPN, CCDS, CCS, CRC Clinical Documentation Legal Compliance Officer Query created by: ELMER Barker, RN, CPN, [...] stent and hematuria who is transferred from [place] ED with 3 days of hematuria & [...] RN, CPN, CCDS, CCS, CRC Clinical Documentation Legal Compliance Officer Query created by: ELMER Barker, RN, CPN, [...] he felt completely obstructed and presented to [place] ED. [place] Course Attempted Tabares insertion but bladder irrigation was unsuccessful on multiple attempts. Hung 1U pRBC's. Given some volume and transferred to [facility] ICU ICU Course Urology consulted and were [...] CDT Procedure visit Department of Urology in [place], [place] [address] [place] [address] Sima Venegas M.D. [address] [place] [address] Pending Results Name Type Priority Associated Diagnoses [...] Antibody ID) (08/26/2023 6:50 AM CDT) Pathologist [facility] ABORh O Pos Not applicable 08/26/2023 7:16 AM CDT STRM Antibody Screen Negative Negative 08/26/2023 7:29 AM CDT STRM Type & Screen Expiration 08/29/2023 23:59 08/26/2023 7:16 AM CDT STRM Testing Location Marcio DEFAULT 08/26/2023 6:57 AM CDT STRM Blood (Blood, Venous) 08/26/2023 6:50 AM CDT 08/26/2023 6:57 AM CDT Paula Hernandez M.D. LAB BLOOD BANK TEST ORDERABLES [facility] [address] [place] [address], [facility] [address] [place] [address] * (ABNORMAL) CBC without Differential (08/26/2023 3:20 AM CDT) Pathologist [facility] Hemoglobin 7.4(L) 13.2 - 16.6 g/dL 08/26/2023 [...] Organization Address City/[facility]/ZIP Co de Phone Number [facility] [address] [place] [address], [facility] DTFormerly [facility] [address] [place] [address] * Magnesium (08/26/2023 3:20 AM CDT) Magnesium, S 2.1 1.7 - 2.3 mg/dL 08/26/2023 4:04 AM CDT DTL Blood (Blood, Venous) 08/26/2023 3:20 AM CDT 08/26/2023 3:50 AM CDT Boubacar Brock M.D. LAB BLOOD ADD-ON [facility] [address] DTL [facility] [address] [place] [address] * (ABNORMAL) Renal Function Panel (08/26/2023 3:20 AM CDT) Pathologist [facility] Potassium, S 4.4 3.6 - 5.2 mmol/L [...] CDT Boubacar Brock M.D. LAB BLOOD ADD-ON [facility] [address] [place] [address], [facility] DTFormerly [facility] [address] [place] [address] * Heparin Anti-Xa Assay (08/26/2023 3:20 AM CDT) Pathologist [facility] Heparin Anti-Xa, P 0.26 IU/mL 2023 3:58 [...] Hoyt M.D. LAB BLOOD NON ADD -ON [address] [address], [facility] [place] [address] * (ABNORMAL) CBC without Differential (08/25/2023 3:24 AM CDT) Pathologist [facility] Hemoglobin 8.3(L) 13.2 - 16.6 g/dL 08/25/2023 [...] CDT Corin Ring M.D. LAB BLOOD ADD-ON [facility] [address] [place] [address], [facility] DTL [facility] [address] [place] [address] * (ABNORMAL) Renal Function Panel (08/25/2023 3:24 AM CDT) Pathologist [facility] Potassium, S 4.1 3.6 - 5.2 mmol/L [...] - 4.5 mg/dL 08/25/2023 4:36 AM CDT DT Blood (Blood, Venous) 08/25/2023 3:24 AM CDT 08/25/2023 4:19 AM CDT Boubacar Brock M.D. LAB BLOOD ADD-ON Performing Organization Address City/[facility]/ZIP Co de Phone Number [facility] [address] [place] [address], [facility] [address] [place] [address] * Magnesium (08/25/2023 3:24 AM CDT) Magnesium, S 2.2 1.7 - 2.3 mg/dL 08/25/2023 4:36 AM CDT [facility] Blood (Blood, Venous) 08/25/2023 3:24 AM CDT 08/25/2023 4:19 AM CDT Boubacar Brock M.D. LAB BLOOD ADD-ON Performing Organization Address City/[facility]/ZIP Co de Phone Number [facility] [address] [place] [address], [facility] [address] [place] [address] * Heparin Anti-Xa Assay (08/25/2023 3:24 AM CDT) Heparin Anti-Xa, P 0.31 IU/mL 2023 4:09 AM CDT DT Comment: UFH therapeutic range: [...] Organization Address City/[facility]/ZIP Co de Phone Number [facility] [address] [place] [address], [facility] DTFormerly [facility] [address] [place] [address] * (ABNORMAL) CBC without Differential (08/24/2023 5:28 AM CDT) Hemoglobin 8.1(L) 13.2 - 16.6 g/dL 08/24/2023 [...] CDT Corin Ring M.D. LAB BLOOD ADD-ON [facility] [address] [place] [address], [facility] DTL [facility] [address] [place] [address] * Magnesium (08/24/2023 5:28 AM CDT) Magnesium, S 2.3 1.7 - 2.3 mg/dL 08/24/2023 6:19 AM CDT DTL Blood (Blood, Venous) 08/24/2023 5:28 AM CDT 08/24/2023 6:00 AM CDT Boubacar Brock M.D. LAB BLOOD ADD-ON [facility] [address] [place] [address], [facility] DTFormerly [facility] [address] [place] [address] * (ABNORMAL) Renal Function Panel (08/24/2023 5:28 [...] Organization Address City/[facility]/ZIP Co de Phone Number [facility] [address] [place], [place] [address] [place] [address] [address] [place] [address] * Heparin Anti-Xa Assay (08/24/2023 5:28 AM CDT) Pathologist [facility] Heparin Anti-Xa, P 0.33 IU/mL 2023 5:58 [...] NON ADD-ON Performing Organization Address [facility]/ZIP Co de Phone Number [facility] [address] [place] [address], [facility] [address] [place] [address] * (ABNORMAL) Potassium (08/23/2023 9:58 PM CDT) Pathologist [facility] Potassium, S 3.5(L) 3.6 - 5.2 mmol/L 08/23/2023 10:45 PM CDT DTL Blood (Blood, Venous) 08/23/2023 9:58 PM CDT 08/23/2023 10:30 PM CDT Boubacar Brock M.D. LAB BLOOD ADD-ON Performing Organization Address City/[facility]/ZIP Co de Phone Number [facility] [address] [place] [address], [facility] [address] [place] [address] * (ABNORMAL) Phosphorus Inorganic (08/23/2023 9:58 PM CDT) Phosphorus (Inorganic), S 2.1(L) 2.5 - 4.5 mg/dL 08/23/2023 10:45 PM CDT DT Blood (Blood, Venous) 08/23/2023 9:58 PM CDT 08/23/2023 10:30 PM CDT Paula Hernandez M.D. LAB BLOOD ADD-ON Performing Organization Address [facility] Co de Phone Number [facility] [address] [place] [address], [address] [address] * Heparin Anti-Xa Assay (08/23/2023 11:37 AM CDT) Heparin Anti-Xa, P 0.51 IU/mL 2023 12:42 [...] Organization Address City/[facility]/ZIP Co de Phone Number [facility] [address] [place], [place] [id number] [place] [address] DTL [facility] [address] [place] [address] * (ABNORMAL) CBC without Differential (08/23/2023 3:42 AM CDT) Pathologist [facility] Hemoglobin 8.3(L) 13.2 - 16.6 g/dL 08/23/2023 [...] CDT Corin Ring M.D. LAB BLOOD ADD-ON [facility] [address] [place] [address], [facility] DTFormerly [facility] [address] [place] [address] * Triglycerides (08/23/2023 3:42 AM CDT) Pathologist [facility] Triglycerides 106 mg/dL 08/23/2023 4:50 AM CDT DTL Comment: ----REFERENCE VALUE---- Normal: <150 mg/dL Borderline High: 150-199 mg/dL High: 200-499 mg/dL Very High: > or =500 mg/dL Fasting (8 HR or more) Yes 08/23/2023 4:19 AM CDT DTL Blood (Blood, Venous) 08/23/2023 3:42 AM CDT 08/23/2023 4:19 AM CDT Boubacar Brock M.D. LAB BLOOD ADD-ON Performing Organization Address City/[facility]/ZIP Co de Phone Number [facility] [address] [place], [place] [address] [place] [address] * Magnesium (08/23/2023 3:42 AM CDT) Pathologist [facility] Magnesium, S 2.2 1.7 - 2.3 mg/dL 08/23/2023 4:50 AM CDT DTL Blood (Blood, Venous) 08/23/2023 3:42 AM CDT 08/23/2023 4:19 AM CDT Boubacar Brock M.D. LAB BLOOD ADD-ON Performing Organization Address City/[facility]/ZIP Co de Phone Number [facility] [address] [place], [place] [address] [place] [address] [address] [place] [address] * (ABNORMAL) Renal Function Panel (08/23/2023 3:42 AM CDT) Pathologist [facility] Potassium, S 3.1(L) 3.6 - 5.2 mmol/L [...] CDT Boubacar Brock M.D. LAB BLOOD ADD-ON [facility] [address] [place] [address], [facility] DTFormerly [facility] [address] [place] [address] * Heparin Anti-Xa Assay (08/23/2023 3:41 AM [...] Organization Address City/[facility]/ZIP Co de Phone Number [facility] [address] [place] [address], [facility] DTFormerly [facility] [address] [place] [address] * Glucose, POCT (08/22/2023 11:38 PM CDT) [facility] Glucose, POCT, B 117 70 - 140 mg/dL 08/23/2023 1:06 AM CDT PCLX Site Capillary 08/23/2023 1:06 AM CDT PCLX Last Intake NPO 08/23/2023 1:06 AM CDT PCLX Blood 08/22/2023 11:3 8 PM CDT 08/23/2023 1:06 AM CDT Unknown Provider LAB POCT ORDERABLES- MANUAL Performing Organization Address City/[facility] Co de Phone Number POC [facility] [address] [place] [address], [facility] PCLX [facility] POC [address] [place] [address] * Heparin Anti-Xa Assay (08/22/2023 10:14 PM CDT) Pathologist [facility] Heparin Anti-Xa, P 0.50 IU/mL 2023 10:47 [...] Boubacar Brock M.D. LAB BLOOD NON ADD-ON [facility] [address] [place] [address], [facility] DTL [facility] [address] [place] [address] * CT Abdomen Pelvis without IV Contrast [...] distal sigmoid colon likelyrepresenting mild proctocolitis. Paula CHOUDHARY CT PROCEDURES * Heparin Anti-Xa Assay (08/22/2023 [...] NON ADD-ON Performing Organization Address [facility]/ZIP Co de Phone Number [facility] [address] [place] [address], [address] [address] * Creatinine, Body Fluid (08/22/2023 3:30 PM [...] transport rates. All other fluids refer to www.[employer].com for further interpretive information. This test has been modified from the disease intervention specialist's instructions. Its performance characteristics were determined by [facility] in a manner consistent with CLIA requirements. This test has not been cleared or approved by the U.S. Food and Drug Administration. Fluid Type, Creatinine Fluid, Abdomen 08/22/2023 3:52 PM CDT DTL Fluid (Abdomen) 08/22/2023 3 :30 PM CDT 08/22/2023 6:36 PM CDT Corin Ring M.D. LAB BODY FLUIDS AND STOOLS ORDERABLES Performing Organization Address City/[facility]/ZIP Co de Phone Number [facility] [address] [place], [place] [address] [address] [place] [address] * Transfuse Red Blood Cells : (08/22/2023 [...] of a right IJ vein single-lumen 4 [place] tunneled PowerPICC ready for immediate use. [...] advanced into the IVC and a 4 [place] dilator advanced over the wire and attached to a one-way stopcock. A suitable exit site in the right anterior chest was anesthetized and a small incision made. A 4 [place] single-lumen PowerPICC was then tunneled from [...] Wireadvanced into the IVC and a 4 [place] dilator advanced over the wire andattached to a one-way stopcock. A suitable exit site in the right anteriorchest was anesthetized and a small incision made. A 4 [place] single-lumen PowerPICC was then tunneled fromthe [...] of a right IJ vein single-lumen 4 [place] tunneled PowerPICCready for immediate use. NR [...] Organization Address City/[facility]/ZIP Co de Phone Number [facility] [address] [place] [address], [facility] STMA [facility] [address] [place] [address] * Type and Screen (with Reflex Antibody ID) (08/22/2023 2:55 AM CDT) Pathologist [facility] ABORh O Pos Not applicable 08/22/2023 3:25 AM CDT STRM Antibody Screen Negative Negative 08/22/2023 3:38 AM CDT STRM Type & Screen Expiration 08/25/2023 23:59 08/22/2023 3:25 AM CDT STRM Testing Location [place] DEFAULT 08/22/2023 3:07 AM CDT STRM Blood (Blood, Venous) 08/22/2023 2:55 AM CDT 08/22/2023 3:07 AM CDT Latisha Whitehead M.D. LAB BLOOD BANK T EST ORDERABLES Performing Organization Address [facility] Co de Phone Number [facility] [address] [place] [address], [facility] [address] [place] [address] * (ABNORMAL) Comprehensive Metabolic Panel (08/22/2023 2:40 AM CDT) Pathologist [facility] Potassium, S 3.2(L) 3.6 - 5.2 mmol/L [...] CDT Latisha Whitehead M.D. LAB BLOOD ADD-ON [facility] [address] [place] [address], [facility] DTFormerly [facility] [address] [place] [address] * Heparin Anti-Xa Assay (08/22/2023 2:40 AM [...] Organization Address City/[facility]/ZIP Co de Phone Number [facility] [address] DTL [facility] [address] [place] [address] * (ABNORMAL) APTT (Activated Partial Thromboplastin Time) (08/22/2023 2:40 AM CDT) [facility] Activated Partial Thrombopl Time, P 64(H) 25 - 37 sec 08/22/2023 3:12 AM CDT [facility] Blood (Blood, Venous) 08/22/2023 2:40 AM CDT 08/22/2023 3:01 AM CDT Latisha Whitehead M.D. LAB BLOOD ADD-ON Performing Organization Address City/[facility]/ZIP Co de Phone Number [facility] 200 [place] [address] * Triglycerides (08/21/2023 7:32 AM CDT) [facility] Triglycerides 98 mg/dL 08/21/2023 9:03 AM CDT DTL Comment: ----REFERENCE VALUE---- Normal: <150 mg/dL Borderline High: 150-199 mg/dL High: 200-499 mg/dL Very High: > or =500 mg/dL Fasting (8 HR or more) Unknown 08/21/2023 8:38 AM CDT DTL Blood (Blood, Venous) 08/21/2023 7:32 AM CDT 08/21/2023 8:38 AM CDT Lizette Hravey M.D. LAB BLOOD ADD-O N Performing Organization Address City/[facility]/ZIP Co de Phone Number [facility] [address] [place], [place] [id number] [place] [address] 200 [place] [address] * Phosphorus Inorganic (08/21/2023 7:32 AM CDT) Phosphorus (Inorganic), S 2.6 2.5 - 4.5 mg/dL 08/21/2023 9:03 AM CDT DTL Blood (Blood, Venous) 08/21/2023 7:32 AM CDT 08/21/2023 8:38 AM CDT Lizette Harvey M.D. LAB BLOOD ADD-O N Performing Organization Address City/[facility]/ZIP Co de Phone Number [facility] [address] [place], [place] [phone] [place] [address] [address] [place] [address] * Magnesium (08/21/2023 7:32 AM CDT) Magnesium, S 2.3 1.7 - 2.3 mg/dL 08/21/2023 9:03 AM CDT DTL Blood (Blood, Venous) 08/21/2023 7:32 AM CDT 08/21/2023 8:38 AM CDT Lizette Harvey M.D. LAB BLOOD ADD-O N [facility] [address] [place] [address], [facility] DTL [facility] [address] [place] [address] * (ABNORMAL) Basic Metabolic Panel (08/21/2023 7:32 [...] Lizette Harvey M.D. LAB BLOOD ADD-O N [facility] [address] [place] [address], [facility] DTL [facility] [address] [place] [address] * (ABNORMAL) CBC without Differential (08/21/2023 7:32 [...] Lizette Harvey M.D. [place] [address], [facility] [place] [address] * Heparin Anti-Xa Assay (08/21/2023 7:32 AM [...] Boubacar Brock M.D. LAB BLOOD NON ADD-ON [facility] [address] [place] [address], [facility] [address] [place] [address] * (ABNORMAL) APTT (Activated Partial Thromboplastin Time) (08/21/2023 7:32 AM CDT) Activated Partial Thrombopl Time, P 49(H) 25 - 37 sec 08/21/2023 8:31 AM CDT DTL Blood (Blood, Venous) 08/21/2023 7:32 AM CDT 08/21/2023 8:06 AM CDT Boubacar Brock M.D. LAB BLOOD ADD-ON Performing Organization Address City/[facility] Co de Phone Number [facility] [address] [place] [address], [facility] [address] [place] [address] * Place peripherally inserted central catheter (PICC) (08/20/2023 8:40 PM CDT) Narrative MMODAL - 08/20/2023 8:40 PM CDT Miko Shah R.N. ? 08/20/2023 ??8:[address] peripherally inserted central catheter (PICC) Performed by: Miko Shah R.N. Authorized by: Lizette Harvey M.D. ?? Care team members present 1. Miko Shah R.N. 2. Cortez, [place] A, R.N. PROCEDURE DETAILS Select line: PICC ?? [...] the atrophic right kidney. Lizette Harvey M.D. IM CT PROCEDUR ES * (ABNORMAL) Basic Metabolic Panel (08/20/2023 3:19 AM CDT) Pathologist [facility] Potassium, S 3.7 3.6 - 5.2 mmol/L [...] Organization Address City/[facility] Co de Phone Number [facility] [address] [place] [address], [facility] DTFormerly [facility] [address] [place] [address] * (ABNORMAL) CBC without Differential (08/20/2023 3:19 AM CDT) [facility] Hemoglobin 8.9(L) 13.2 - 16.6 g/dL 08/20/2023 [...] Organization Address City/[facility]/ZIP Co de Phone Number [facility] [address] [place] [address], [facility] DTFormerly [facility] [address] [place] [address] * (ABNORMAL) APTT (Activated Partial Thromboplastin Time) (08/20/2023 3:19 AM CDT) Activated Partial Thrombopl Time, P 52(H) 25 - 37 sec 08/20/2023 4:33 AM CDT DT Blood (Blood, Venous) 08/20/2023 3:19 AM CDT 08/20/2023 4:10 AM CDT Boubacar Brock M.D. LAB BLOOD ADD-ON [facility] [address] [place] [address] * (ABNORMAL) APTT (Activated Partial Thromboplastin Time) (08/19/2023 10:57 AM CDT) [facility] Activated Partial Thrombopl Time, P 54(H) 25 - 37 sec 08/19/2023 11:44 AM CDT DT Blood (Blood, Venous) 08/19/2023 10:57 AM CDT 08/19/2023 11:26 AM CDT Boubacar Brock M.D. LAB BLOOD ADD-ON Performing Organization Address City/[facility]/ZIP Co de Phone Number [facility] [address] [place] [address] * (ABNORMAL) APTT (Activated Partial Thromboplastin Time) (08/19/2023 4:51 AM CDT) [facility] Activated Partial Thrombopl Time, P 59(H) 25 - 37 sec 08/19/2023 5:53 AM CDT DT Blood (Blood, Venous) 08/19/2023 4:51 AM CDT 08/19/2023 5:36 AM CDT Boubacar Brock M.D. LAB BLOOD ADD-ON [facility] [address] [place] [address] * (ABNORMAL) APTT (Activated Partial Thromboplastin Time) (08/18/2023 10:03 PM CDT) [facility] Activated Partial Thrombopl Time, P 63(H) 25 - 37 sec 08/18/2023 10:41 PM CDT DTL Blood (Blood, Venous) 08/18/2023 10:03 PM CDT 08/18/2023 10:19 PM CDT Boubacar Brock M.D. LAB BLOOD ADD-ON [facility] [address] [place] [address] * (ABNORMAL) APTT (Activated Partial Thromboplastin Time) (08/18/2023 2:50 PM CDT) [facility] Activated Partial Thrombopl Time, P 64(H) 25 - 37 sec 08/18/2023 3:25 PM CDT DT Blood (Blood, Venous) 08/18/2023 2:50 PM CDT 08/18/2023 3:07 PM CDT Boubacar Brock M.D. LAB BLOOD ADD-ON [facility] 200 [place] [address] * (ABNORMAL) APTT (Activated Partial Thromboplastin Time) (08/18/2023 6:42 AM CDT) [facility] Activated Partial Thrombopl Time, P 61(H) 25 - 37 sec 08/18/2023 7:28 AM CDT DTL Blood (Blood, Venous) 08/18/2023 6:42 AM CDT 08/18/2023 7:04 AM CDT Boubacar Brock M.D. LAB BLOOD ADD-ON [facility] [address] [place], [place] [address] [place] [address] 200 [place] [address] * (ABNORMAL) APTT (Activated Partial Thromboplastin Time) (08/17/2023 11:04 PM CDT) Activated Partial Thrombopl Time, P 40(H) 25 - 37 sec 08/17/2023 11:46 PM CDT DTL Blood (Blood, Venous) 08/17/2023 11:04 PM CDT 08/17/2023 11:31 PM CDT Boubacar Brock M.D. LAB BLOOD ADD-ON Performing Organization Address City/[facility] Co de Phone Number [facility] [address] [place], [place] [id number] [place] [address] 200 [place] [address] * US Lower Extremity Veins Bilateral (08/17/2023 [...] and management can be found on the [employer] site. Link [email or web address] Findings discussed with ??Tayler Greenwood, ?? ([id number]) on 08/17/2023 7:11 PM. Procedure Note Jj [...] management can be found on theAskMayoExpert site. [email or web address] [email or web address] Findings discussed with Tayler Greenwood MD ([id number]) on 08/17/2023 7:11 PM. IMPRESSION: 1. 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 2. No acute left-sided DVT. Corin Ring M.D. IMG US PROCEDURES * APTT (Activated Partial Thromboplastin Time) (08/17/2023 4:56 PM CDT) Pathologist [facility] Activated Partial Thrombopl Time, P 29 25 - 37 sec 08/17/2023 5:10 PM CDT [facility] Blood (Blood, Venous) 08/17/2023 4:56 PM CDT 08/17/2023 5:00 PM CDT Paula Hernandez M.D. LAB BLOOD ADD-ON [facility] [address] [place] [address], [facility] [address] [place] [address] * ECG 12 Lead (08/16/2023 9:43 PM CDT) Pathologist [facility] Ventricular Rate ECG/Min 134 BPM MUSE VA Interval 136 ms MUSE QRSD Interval 76 ms MUSE QT Interval 298 ms MUSE QTC Interval 445 ms MUSE P Kremmling 29 degrees MUSE R [place]ing -6 degrees MUSE T Wave [place] 21 degrees MUSE 08/16/2023 9:43 PM CDT [...] [facility] [address] [place] [address], [facility] DTL [facility] [address] [place] [address] * (ABNORMAL) Basic Metabolic Panel (08/16/2023 9:40 [...] [facility] [address] [place] [address], [facility] DTL [address] [address] * Transfuse Red Blood Cells : (08/16/2023 12:04 PM CDT) Corin Ring M.D. BLOOD TRANSFUSION OR DERABLES * Transfuse Red Blood Cells : , 1 Units (08/16/2023 12:04 PM CDT) Corin Ring M.D. BLOOD TRANSFUSION OR DERABLES * (ABNORMAL) Basic Metabolic Panel (08/16/2023 3:10 AM CDT) [facility] Potassium, S 4.2 3.6 - 5.2 [...] CDT Paula Hernandez M.D. LAB BLOOD ADD-ON [facility] [address] [place] [address], [facility] [address] [place] [address] * (ABNORMAL) CBC without Differential (08/16/2023 3:10 AM CDT) Pathologist [facility] Hemoglobin 8.1(L) 13.2 - 16.6 g/dL 08/16/2023 [...] CDT Paula Hernandez M.D. LAB BLOOD ADD-ON [facility] [address] [place] [address], [facility] [address] [place] [address] * (ABNORMAL) CBC with Differential, Blood (08/15/2023 [...] [facility] [address] [place] [address], [facility] DTL [facility] [address] [place] [address] [facility] [address] [place] [address] * DX Abdomen 1 View (08/15/2023 1:19 [...] CDT 08/15/2023 12:03 PM CDT Rae Gonzalez DYEHOUSE WORKER, MILITARY EDUCATION COORDINATOR, DNAP LAB BLOO D NON ADD-ON [facility] [address] [place] [address], [facility] [address] [place] [address] * Lactate, B - Intra-op (08/15/2023 11:56 AM CDT) Lactate, B 1.1 0.5 - 2.2 mmol/L 08/15/2023 12:06 PM CDT [facility] Blood (Blood, Venous) 08/15/2023 11:56 AM CDT 08/15/2023 12:03 PM CDT Hayde Song M.D. LAB BLOOD NON ADD-O N Performing Organization Address City/[facility]/ZIP Co de Phone Number [facility] [address] [place] [address], [facility] [address] [place] [address] * (ABNORMAL) Glucose, Whole Blood (08/15/2023 11:56 AM CDT) Glucose 144(H) 70 - 140 mg/dL 08/15/2023 12:06 PM CDT [facility] Blood (Blood, Arterial Line) 08/15/2023 11:56 AM CDT 08/15/2023 12:03 PM CDT Hayde Song M.D. LAB BLOOD ADD-ON Performing Organization Address City/[facility]/ZIP Co de Phone Number [facility] [address] [place] [address], [facility] [address] [place] [address] * Potassium, Blood (08/15/2023 11:56 AM CDT) Potassium, B 4.3 3.6 - 5.2 mmol/L 08/15/2023 12:07 PM CDT [facility] Blood (Blood, Arterial Line) 08/15/2023 11:56 AM CDT 08/15/2023 12:03 PM CDT Hayde Song M.D. LAB BLOOD NON ADD-O N [facility] [address] [place] [address], [facility] [address] [place] [address] * Sodium, B (08/15/2023 11:56 AM CDT) Sodium, B 135 135 - 145 mmol/L 08/15/2023 12:06 PM CDT [facility] Blood (Blood, Arterial Line) 08/15/2023 11:56 AM CDT 08/15/2023 12:03 PM CDT Hayde Song M.D. LAB BLOOD NON ADD-O N Performing Organization Address City/[facility]/ZIP Co de Phone Number [facility] [address] [place] [address], [facility] [address] [place] [address] * (ABNORMAL) Calcium, Ionized (08/15/2023 11:56 AM CDT) Calcium, Ionized, B 4.53(L) 4.65 - 5.30 mg/dL 08/15/2023 12:07 PM CDT [facility] Blood (Blood, Arterial Line) 08/15/2023 11:56 AM CDT 08/15/2023 12:03 PM CDT Hayde Song M.D. LAB BLOOD NON ADD-O N Performing Organization Address [facility] Co de Phone Number [facility] [address] [place], [place] [address] [place] [address] [address] [place] [address] * (ABNORMAL) Blood Gas with Coox, Arterial [...] Organization Address City/[facility]/ZIP Co de Phone Number [facility] [address] [place] [address] * FL Fluoro Less Than 1 Hour (08/15/2023 11:22 AM CDT) Narrative 152 [facility]OS [facility] - 08/15/2023 11:24 AM CDT This exam does not require a radiologist review or interpretation. Please refer to the patient's medical record on this date for clinical details. Boubacar Brock M.D. IMG FLUOROSCOPY PROC EDURES Performing Organization Address [facility] Co de Phone Number 152 [facility] * Patient Status (08/15/2023 10:28 AM CDT) Temperature 36.1 37.0 deg C 08/15/2023 10:28 AM CDT [facility] FIO2 0.55 0.21=AIR 08/15/2023 10:28 AM CDT [facility] Blood 08/15/2023 10:2 8 AM CDT 08/15/2023 10:28 AM CDT Rae Gonzalez DYEHOUSE WORKER, MILITARY EDUCATION COORDINATOR, DNAP LAB BLOO D NON ADD-ON Performing Organization Address City/[facility]/ZIP Co de Phone Number [facility] [address] [place], [place] [phone] [place] [address] [address] [place] [address] * Lactate, B - Intra-op (08/15/2023 10:28 AM CDT) Lactate, B 1.1 0.5 - 2.2 mmol/L 08/15/2023 10:30 AM CDT [facility] Blood (Blood, Venous) 08/15/2023 10:28 AM CDT 08/15/2023 10:28 AM CDT Hayde Song M.D. LAB BLOOD NON ADD-O N [facility] [address] [place], [place] [id number] [place] [address] [address] [place] [address] * Glucose, Whole Blood (08/15/2023 10:28 AM CDT) Glucose 134 70 - 140 mg/dL 08/15/2023 10:30 AM CDT [facility] Blood (Blood, Arterial Line) 08/15/2023 10:28 AM CDT 08/15/2023 10:28 AM CDT Narrative Authorizing Provider Result Abdifatah Song M.D. LAB BLOOD ADD-ON [facility] [address] [place] [address], [facility] [address] [place] [address] * Potassium, Blood (08/15/2023 10:28 AM CDT) Potassium, B 4.1 3.6 - 5.2 mmol/L 08/15/2023 10:31 AM CDT [facility] Blood (Blood, Arterial Line) 08/15/2023 10:28 AM CDT 08/15/2023 10:28 AM CDT Narrative Authorizing Provider Result Abdifatah Song M.D. LAB BLOOD NON ADD-O N Performing Organization Address City/[facility]/ZIP Co de Phone Number [facility] [address] [place] [address] * Sodium, B (08/15/2023 10:28 AM CDT) Sodium, B 135 135 - 145 mmol/L 08/15/2023 10:30 AM CDT [facility] Blood (Blood, Arterial Line) 08/15/2023 10:28 AM CDT 08/15/2023 10:28 AM CDT Hayde Song M.D. LAB BLOOD NON ADD-O N Performing Organization Address City/[facility]/ZIP Co de Phone Number [facility] [address] [place] [address] * (ABNORMAL) Calcium, Ionized (08/15/2023 10:28 AM CDT) Calcium, Ionized, B 4.25(L) 4.65 - 5.30 mg/dL 08/15/2023 10:31 AM CDT [facility] Blood (Blood, Arterial Line) 08/15/2023 10:28 AM CDT 08/15/2023 10:28 AM CDT Hayde Song M.D. LAB BLOOD NON ADD-O N [facility] [address] [place] [address] * (ABNORMAL) Blood Gas with Coox, Arterial [...] N [facility] [address] [place] [address], [facility] [address] [place] [address] * Bacteria / Yomaira Culture, Blood #2 (08/15/2023 3:33 AM CDT) Bacteria/Leyla da Culture, Blood No growth after 5 days of incubation. 08/20/2023 6:02 AM CDT DTL Blood (Blood, Peripheral Draw) 08/15/2023 3:33 AM CDT 08/15/2023 5:58 AM CDT Comment:Specimen Source Site : Blood Narrative [facility] - 08/20/2023 6:02 AM CDT Received Bactec aerobic and Bactec anaerobic bottles Carlos Alberto Henson M.D. LAB MICROBIOLOGY - G ENERAL ORDERABLES [facility] [address] [place] [address], [facility] DTL [facility] [address] [place] [address] * (ABNORMAL) Basic Metabolic Panel (08/15/2023 3:31 AM CDT) Pathologist [facility] Potassium, S 4.0 3.6 - 5.2 mmol/L [...] Jakob De Paz M.D. LAB BLOOD ADD-ON [facility] [address] [place] [address], [place] DT[facility]ly [facility] [address] [place] [address] * Bacteria / Yomaira Culture, Blood #1 (08/15/2023 3:31 AM CDT) [facility] Bacteria/Leyla da Culture, Blood No growth after 5 days of incubation. 08/20/2023 6:02 AM CDT DTL Blood (Blood, Peripheral Draw) 08/15/2023 3:31 AM CDT 08/15/2023 5:59 AM CDT Comment:Specimen Source Site : Blood Carlos Alberto Henson M.D. LAB MICROBIOLOGY - [facility] ORDERABLES [facility] [address] [place] [address], [facility] [address] [place] [address] * (ABNORMAL) CBC with Differential, Blood (08/15/2023 3:30 AM CDT) [facility] Hemoglobin 9.5(L) 13.2 - 16.6 g/dL 08/15/2023 [...] ADD-ON [facility] [address] [place] [address], [facility] DTL [facility] [address] [place] [address] * (ABNORMAL) CBC with Differential, Blood (08/14/2023 8:08 PM CDT) [facility] Hemoglobin 9.8(L) 13.2 - 16.6 g/dL [...] [facility] [address] [place] [address], [facility] STMA [facility] [address] [place] [address] [facility] [address] [place] [address] * Transfuse Red Blood Cells : , [...] [facility] [address] [place] [address], [facility] STMA [facility] [address] [place] [address] [facility] [address] [place] [address] * (ABNORMAL) Basic Metabolic Panel (08/14/2023 3:18 AM CDT) [facility] Potassium, S 5.4(H) 3.6 - 5.2 mmol/L [...] BLOOD ADD-ON [facility] [address] [place] [address], [facility] DTL [facility] [address] [place] [address] * Type and Screen (with Reflex Antibody ID) (08/13/2023 7:35 PM CDT) Pathologist [facility] ABORh O Pos Not applicable 08/13/2023 7:58 PM CDT STRM Antibody Screen Negative Negative 08/13/2023 8:13 PM CDT STRM Type & Screen Expiration 08/16/2023 23:59 08/13/2023 7:58 PM CDT STRM Testing Location [place] DEFAULT 08/13/2023 7:39 PM CDT STRM Blood (Blood, Venous) 08/13/2023 7:35 PM CDT 08/13/2023 7:39 PM CDT Carlos Alberto Henson M.D. LAB BLOOD BANK TEST ORDERABLES Performing Organization Address City/[facility]/ZIP Co de Phone Number [facility] [address] [place] [address], [facility] [address] [place] [address] * (ABNORMAL) Bacteria / Yomaira Culture, Blood #1 (08/13/2023 7:35 PM CDT) Pathologist [facility] Bacteria/Cand jessica Culture, Blood ESCHERICHIA COLI Growth after 11 Hours (A) 08/16/2023 11:17 AM CDT DTL Comment: 3 of 3 Bottles, Susceptibilities performed on another specimen [id number] Blood (Blood, Peripheral Draw) 08/13/2023 7:35 PM CDT 08/13/2023 8:15 PM CDT Comment:Specimen Source Site : Blood Carlos Alberto Henson M.D. LAB MICROBIOLOGY - G ENERAL ORDERABLES [facility] [address] [place] [address], [facility] DTL [facility] [address] [place] [address] * ECG 12 Lead (08/13/2023 7:02 PM CDT) [facility] Ventricular Rate ECG/Min 128 BPM MUSE VA Interval 138 ms MUSE QRSD Interval 64 ms MUSE QT Interval 304 ms MUSE QTC Interval 443 ms MUSE P K[place]mling 45 degrees MUSE R [place] 34 degrees MUSE T Wave [place] 46 degrees MUSE 08/13/2023 7:02 PM CDT [...] CDT Comment:Specimen Source Site : Blood Narrative [facility] - 08/16/2023 11:17 AM CDT [...] Organization Address City/[facility]/ZIP Co de Phone Number [facility] [address] [place] [address] * Magnesium (08/13/2023 5:27 PM CDT) [facility] Signature Magnesium, S 1.9 1.7 - 2.3 mg/dL 08/13/2023 6:12 PM CDT DTL Blood (Blood, Venous) 08/13/2023 5:27 PM CDT 08/13/2023 5:58 PM CDT Carlos Alberto Henson M.D. LAB BLOOD ADD-ON [facility] [address] [place] [address], [facility] [place] [address] * (ABNORMAL) Hepatic Function Panel (08/13/2023 5:27 [...] ADD-ON [facility] [address] [place] [address], [facility] DTFormerly [facility] [address] [place] [address] * (ABNORMAL) Basic Metabolic Panel (08/13/2023 5:27 [...] Carlos Alberto Henson M.D. LAB BLOOD ADD-ON [facility] [address] [place] [address], [facility] [address] [place] [address] * Prothrombin Time (PT) (08/13/2023 5:27 PM [...] Carlos Alberto Henson M.D. LAB BLOOD ADD-ON [facility] - [facility] [address] [place] [address], [facility] STMA [facility] [address] [place] [address] * (ABNORMAL) CBC with Differential, Blood (08/13/2023 [...] Organization Address City/[facility]/ZIP Co de Phone Number [facility] [address] [place] [address], [facility] STMA [facility] [address] [place] [address] [facility] [address] [place] [address] * (ABNORMAL) Dipstick, Urine (08/13/2023 5:07 PM [...] Organization Address City/[facility]/ZIP Co de Phone Number [facility] [address] [place] [address], [facility] DTFormerly [facility] [address] [place] [address] * Osmolality, Urine (08/13/2023 5:07 PM CDT) Osmolality, U 351 150 - 1150 mOsm/kg 08/13/2023 7:46 PM CDT DTL Urine 08/13/2023 5:07 PM CDT 08/13/2023 5:45 PM CDT Carlos Alberto Henson M.D. LAB URINE ORDERABLES Performing Organization Address City/[facility]/ZIP Co de Phone Number [facility] [address] [place] [address], [facility] [address] [place] [address] * (ABNORMAL) Microscopic Manual (08/13/2023 5:07 PM [...] Organization Address City/[facility]/ZIP Co de Phone Number [facility] [address] [place], [place] [address] [address] [place] [address] * pH, Random, Urine (08/13/2023 5:07 PM CDT) pH, Random, U 7.0 4.5 - 8.0 08/13/2023 7:46 PM CDT DTL Urine 08/13/2023 5:07 PM CDT 08/13/2023 5:45 PM CDT Carlos Alberto Henson M.D. LAB URINE ORDERABLES [facility] [address] [place] [address], [facility] [address] [place] [address] * (ABNORMAL) Bacterial Culture, Aerobic + Susceptibility, [...] M.D. LAB MICROBIOLOGY - G ENERAL ORDERABLES [facility] [address] [place] [address], [facility] DTL [facility] [address] [place] [address] * (ABNORMAL) Urinalysis, with Microscopic: Urine, Midstream [...] CDT DTL Predicted 24 [place] [address](H) <229 mg/24 h 08/13/2023 8:50 PM CDT DTL Predicted Range 70647-013402 mg/24 h 08/13/2023 8:50 PM CDT DTL Comment Micro done on <2.5 mL 08/13/2023 7:55 PM CDT DTL Urine (Urine, Midstream) 08/13/2023 5:07 PM CDT 08/13/2023 5:44 PM CDT Carlos Alberto Henson M.D. LAB URINE ORDERABLES [facility] [address] [place] [address], [facility] DTL [facility] [address] [place] [address] * Interpretation of Outside CT Abdomen and [...] may use home supply. 08/17/23: Id'ed by [facility] Rx# [id number], filled 07/22/23. HAZARDOUS - Handle with care. Swallow whole. Do NOT crush, chew or open capsule. Given 08/26/2023 9:12 AM CDT 120 mg Given 08/25/2023 9:08 AM CDT 120 mg Given 08/24/2023 9:12 AM CDT 120 mg Lactated Ringer's 1.5 mL/kg/hr ? 75 kg [place] weight (112.5 mL/hr, rounded to 113 mL/hr), intravenous, Continuous, Starting on Tue08/22/23 at 1030, Conditional Phase Pre-Gastrografin Administration. (Rate = 1.5 mL/kg/hr ideal body weight) Lactated Ringer's 0.75 mL/kg/hr ? 75 kg [place] weight (56.25 mL/hr, rounded to 56.3 mL/hr), [...] See R.N.)1136 (Given - Provider: Tayler Forrest R.N.)1750 (Not Given - Provider: Paola Salazar R.N. - Reason: Patient/family refused)2349 (Not Given - Provider: Edith Simental R.N. - Reason: Patient/family refused) 0624 (Given - Provider: Edith Simental R.N.)1244 (Not Given - Provider: Lupe Valdez R.N. [...] Provider: Tayler Forrest R.N. - Reason: Patient/family refused)2151 (Given - Provider: Fatuma M Esa, R.N.) 0852 (Not Given - Provider: Tayler Forrest R.N. - Reason: Patient/family refused)2131 (Given - Provider: Paola Salazar R.N.) 0915 (Given - Provider: Lupe Valdez R.N.) enzalutamide capsule 120 mg (XTANDI) PATIENT'S OWN MED 120 mg, oral, Daily, First dose (after last modification) on Tue08/17/23 at 1230, Patient may use home supply. 08/17/23: Id'ed by [facility] Rx# [id number], filled 07/22/23. HAZARDOUS - Handle with care. Swallow whole. Do NOT crush, chew or open capsule. 09 (Given - Provider: Tayler Forrest R.N. - Comment: Pat Murray, -2nd RN) 09 (Given - Provider: Tayler Forrest R.N. - Comment: Pt 's own med from home) 911 (Given - Provider: Lupe Valdez R.N.) fat emulsion tav-hox-slrxx & fish oil infusion 50 g (SMOFlipid) [...] R.N. - Comment: verified by Paola Salazar RN)2127 (Stopped - Provider: Paola Salazar R.N.) [...] 2100 0911 (Given - Provider: Tayler Forrest R.N.)2151 (Given - Provider: Fatuma See R.N.) 09 [...] 0911 (Given - Provider: Tayler Forrest R.N.) 906 (Given - Provider: Tayler Forrest R.N.) 0916 [...] Vieira M.D., M.S.)2100 (Not Given - Provider: Paola Salazar R.N. [...] Howe R.N.)1520 (Given - Provider: Mary Rosado RJonahN.) 0638 (Given - Provider: Fatuma See R.N.)1749 (Given - Provider: Paola Salazar RJonahN.) 0626 (Given - Provider: Edith Simental RJonahNJonah)1600 [...] R.N. - Comment: verified by Paola Salazar RN)2126 (Stopped - Provider: Paola Salazar R.N.) [...] MCCULLOUGH) 0415 (Rate/Dose Change - Provider: Fatuma eSe R.N.)0719 (Handoff - Provider: Tayler Forrest R.N. - Comment: from Fatuma See RN)1542 (Handoff - Provider: Tayler Forrest R.N. - Comment: verified by Paola Salazar RN)2125 (New Bag - Provider: Paola Salazar R.N.)2328 (Handoff - Provider: Edith Simental R.N. - Comment: herbert knight RN) 0407 (Rate/Dose Change - Provider: Edith Simental R.N.)0729 (Handoff - Provider: Lupe Valdez R.N. - Comment: Verified with JAMEL Sharma)1153 (Stopped - Provider: Lupe Valdez R.N.) Lactated Ringer's 1.5 mL/kg/hr ? 75 kg [place] weight (112.5 mL/hr, rounded to 113 mL/hr), intravenous, Continuous, Starting on Tue08/22/23 at 1030, Conditional Phase Pre-Gastrografin Administration. (Rate = 1.5 mL/kg/hr ideal body weight) Lactated Ringer's 0.75 mL/kg/hr ? 75 kg [place] weight (56.25 mL/hr, rounded to 56.3 mL/hr), [...] 1547 documented in this encounter Care Teams Tractor Mechanic Helper Relationship Specialty Start Date End Date Elsewhere, Pcp PCP - General Internal Medicine 08/13/23 documented as of this encounter
--- OUTSIDE RECORDS SUMMARY | 2023-08-30 16:48 | XMS_ITS | Encounter Summary ---
Author Name Unknown Organization [facility] Address [address] [place] [address] Care Team Providers Care Crap Game Box Person Name Role Phone Elsewhere, Pcp Primary Care Provider Unavailabl e Encounter Details Date Type Department Care Team (Latest Contact Info) Description 08/13/2023 Intake [facility] Social History Tobacco Use Types Packs/Day Years Used Date Smoking Tobacco: Never Smokeless Tobacco: Never [facility] Utilities Answer Date Recorded In the past 12 months has [facility] electric, gas, oil, or water [...] your living situation today? I have a [facility] place to live 08/13/2023 Sex and Gender Information Value Date Recorded Sex Assigned at Not on file Gender Identity Not on file Sexual Orientation Not on file documented as of this encounter Plan of Treatment Upcoming Encounters Date Type Department Care Team (Late st Contact Info) Description 09/07/2023 11:00 AM CDT Procedure visit Department of Urology in [place], [place] [address] [place] [address] Sima Venegas M.D. [address] [place] [address] documented as of this encounter Visit Diagnoses Not on filedocumented in this encounter Care Teams Crap Game Box Person Relationship Specialty Start Date End Date Elsewhere, Pcp PCP - General Internal Medicine 08/13/23 documented as of this encounter
--- OUTSIDE RECORDS SUMMARY | 2023-08-30 16:48 | XMS_ITS | Encounter Summary ---
Author Name Unknown Organization [facility] Address [address] [place] [address] Care Team Providers Care Food Service Order Clerk Name Role Phone Elsewhere, Pcp Primary Care Provider Unavailabl e Encounter Details Date Type Department Care Team (Late st Contact Info) Description 08/13/2023 4:35 PM CDT Ancillary Procedure Department of Radiology in [place], [place] [address] [place] [address] Carlos Alberto Henson M.D. [address] [place] [address] Social History Tobacco Use Types Packs/Day Years Used Date Smoking Tobacco: Never Smokeless Tobacco: Never [facility] Utilities Answer Date Recorded In the past 12 months has [facility] electric, gas, oil, or water [employer] threatened to shut off services in your [...] CDT Procedure visit Department of Urology in [place], [place] [address] [place] [address] Sima Venegas M.D. [address] [place] [address] documented as of this encounter Procedures Procedure [...] on filedocumented in this encounter Care Teams Food Service Order Clerk Relationship Specialty Start Date End Date Elsewhere, Pcp PCP - General Internal Medicine 08/13/23 documented as of this encounter
--- OUTSIDE RECORDS SUMMARY | 2023-08-30 16:49 | XMS_ITS | Clinical Summary ---
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 ZTE=061.87 Bladder mass 02/29/2020 04/30/2020 Hematuria 02/29/2020 03/05/2020 Acute deep vein thrombosis (DVT) 02/29/2020 11/20/2020 S/P coronary angioplasty 11/03/2016 Chest pain 09/15/2016 03/05/2020 Elevated prostate specific antigen (PSA) 10/06/2010 03/05/2020 Hip arthritis 10/06/2010 03/05/2020 Colon polyp 07/15/2010 PATRICE (acute kidney injury) Obstructive uropathy 020 Encounters Date Type Department Care Team Description 08/23/2023 Transcribe Orders [facility] [address] [place], [place] [id number] Provider, Non-Excellian 08/13/2023 Orders Only [facility] Scanner 1 scan: (1-Ord) [facility], ABDOMEN/PELVIS W/O, 08/13/2023 08/04/2023 11:30 AM CDT Office Visit [facility] [address] [place] [address] Sandip Garcia, [facility] 08/04/2023 Travel 08/02/2023 2:30 PM CDT Orders Only [facility] [address] [place] [address] Lab, [place] [facility] 08/02/2023 Travel 08/02/2023 Orders Only [facility] [address] [place] [address] Cesar Mccollum MD <No scans attached> 07/21/2023 8:55 AM CDT Office Visit [facility] [address] [place] [address] Cesar Mccollum MD Medicare ANNUAL (subsequent) Visit (83 year old); Post Procedure (Uteretal stent exchange) 07/21/2023 Travel 07/18/2023 10:00 AM CDT Anesthesia Event [facility] [address] [place] [address] Leonardo Frankel MD Purdy, Adam John, CRNA 07/18/2023 9:45 AM CDT - 07/18/2023 10:54 AM CDT Surgery [facility] [address] [place] [address] Nicola Mcgarry MD CYSTOSCOPY EXCHANGE, RIGHT URETERAL STENT 07/18/2023 7:41 AM CDT - 07/18/2023 3:26 PM CDT Hospital Encounter [facility] [address] [place] [address] Nicola Mcgarry MD Other hydronephrosis (Primary Dx) Discharge Disposition: Home Self Care 07/18/2023 Travel 07/15/2023 8:20 AM CDT Preop Visit [facility] [address] [place] [address] Shannan Bain, Pre-Op Exam (/BLADDER SURGERY [facility] [address] 07/18/23) 07/15/2023 Travel 07/11/2023 Orders Only [facility] Scanner 1 scan: (1-Ord) [facility] REPORT, 07/11/2023 07/06/2023 Telephone [facility] [address] [place] [address] Cesar Mccollum MD Follow Up 07/05/2023 4:00 PM CDT Orders Only [facility] [address] [place] [address] Lab, [place] [facility] 07/05/2023 Travel 07/05/2023 Orders Only [facility] [address] [place] [address] Cesar Mccollum MD <No scans attached> 07/01/2023 8:30 AM CDT Ancillary Procedure [facility] [address] [place] [address] 07/01/2023 Travel 06/25/2023 Orders Only [facility] Scanner 1 scan: (1-Ord) [place], MULTIPLE LABS, 06/25/2023 06/23/2023 Transcribe Orders [facility] [address] [place] [address] Nicola Mcgarry MD from Last 3 Months Immunizations Name Administration Dates Next Due COVID-19 Vaccine Spikevax (M oderna 50mcg/0.5mL) 12YO+ [id number] Formula PF 07/21/2023,03/08/2023 COVID-19 vaccine (Pfizer-Bio NTech [...] Description 10/04/2023 1:00 PM CDT Office Visit [facility] [address] [place] [address] Regan Miller MD [address] [place] [address] Health Maintenance Due Date Last [...] Completed 4 Medical Devices Implanted Type Area Industrial Maintenance Repairer Helper Device Identifier Shelf Expiration Date Model / Serial / Lot Stent Uret [id number] Contour - [id number] Implanted:Qty: 1 on 07/18/2023 by Nicola Mcgarry MD at [facility] Right: Ureter [facility] 02/27/2026 [id number] Procedures Procedure Name Priority Date/Time Associated Diagnosis [...] - 17.5 g/dL 08/02/2023 2:31 PM CDT [facility] MCV 89 80 - 100 fL 08/02/2023 2:31 PM CDT [facility] Blood BLOOD SPECIMEN / Unknown Venipuncture / Unknown 08/02/2023 2:26 PM CDT 08/02/2023 2:26 PM CDT Cesar Mccollum MD HEMATOLOGY Performing Organization Address City/[facility]/ZIP Co de Phone Number [facility] [address] [place] [address], * HEMOGLOBIN A1C SCREENING (07/21/2023 9:58 AM CDT) HEMOGLOBIN A1C SCREENING 5.4 <=6.4 % 07/21/2023 5:56 PM CDT [facility] Blood BLOOD SPECIMEN / Unknown Venipuncture / Unknown 07/21/2023 9:58 AM CDT 07/21/2023 10:00 AM CDT Narrative [facility] - 07/21/2023 5:56 PM CDT ? (<5.7%) ?Normal ? (5.7% to 6.4%) ? Indicates prediabetes ? (>=6.5%) ? Confirms diabetes Falsely low levels may be seen with: Recent Transfusion, Recent Significant Blood Loss, Hemolytic Diseases, or Falsely elevated levels may be seen with: Untreated Anemias, Splenectomy Cesar Mccollum MD CHEMISTRY Performing Organization Address [facility] Co de Phone Number [facility] [address] [address], [place] * XR RETROGRADE PYELOGRAM W/WO KUB [...] METABOLIC PANEL (07/15/2023 9:40 AM CDT) Pathologist [facility] SODIUM 141 136 - 145 mmol/L 07/15/2023 5:14 PM CDT [facility] POTASSIUM 4.7 3.5 - 5.1 mmol/L 07/15/2023 5:14 PM CDT [facility] CHLORIDE 106 98 - 107 mmol/L 07/15/2023 5:14 PM T [facility] CO2,TOTAL 24 22 - 29 mmol/L 07/15/2023 5:14 PM CDT [facility] ANION GAP 11 5 - 18 07/15/2023 5:14 PM CDT [facility] GLUCOSE 91 70 - 99 mg/dL 07/15/2023 5:14 PM T [facility] CALCIUM 9.3 8.8 - 10.2 mg/dL 07/15/2023 5:14 PM CDT [facility] BUN 22 8 - 23 mg/dL 07/15/2023 5:14 PM T [facility] CREATININE 1.32(H) 0.70 - 1.20 mg/dL 07/15/2023 5:14 PM T [facility] BUN/CREAT RATIO 17 10 - 20 5:14 PM T [facility] eGFR 53(L) >90 mL/min/1.7 3m2 07/15/2023 5:14 PM T [facility] Comment:As of 2021, eG FR [...] 9:40 AM CDT Shannan Bain DO CHEMISTRY [facility] [address] [place] [address], * SCAN-LABORATORY REPORT (07/11/2023 12:00 AM CDT) [...] Code Status Discussion: Reviewed Preferences Care Teams Splitting Machine Operator Relationship Specialty Start Date End Date Cesar Mccollum MD [address] [place] [address] PCP - General Family Practice 03/04/20 Nicola Mcgarry MD [address] [place] [phone] Surgery - Urology 03/13/20 Mireya Tan MD [address] [facility] [place] [phone] Hematology - Pathology 03/13/20
== END 2023-08-30 18:28 | disposition short-term general hospital (02) ==
LOC: ED 16:43
PROVIDERS: Emergency Provider Student in an Organized Health Care Education/Training Program; PCP Family Medicine
DX: T83.091A Other mechanical complication of indwelling urethral catheter, initial encounter (principal)
CPT/HCPCS: 36415; 76770; 80048; 85025; 99283

== ENCOUNTER 2023-08-30 18:20 | Outpatient (CLI) | payer MEDICARE, OTHER, SELFPAY ==
--- OUTSIDE RECORDS SUMMARY | 2023-09-03 05:33 | XMS_ITS | Clinical Summary ---
Author Organization [facility] Address [address] [place] [address] Care Team Providers Care Search Manager Name Role Phone Cesar Mccollum Primary Care Provider [phone] Allergies No known active allergies Medications Medication [...] this topic Medical Devices Implanted Type Area City Marshal Device Identifier Shelf Expiration Date Model / Serial / Lot Stent Ureteral Polaris Ultra [id number] - [id number] Implanted:Qty : 1 on 02/08/2022 by Nicola Ware MD at [facility] Stent Right: U[employer]ter [employer] [id number] 10/08/2024 [id number] Explanted Type Area City Marshal Device Identifier Shelf Expiration Date Model / Serial / Lot Stent Came Out Of The Right Ureter Explanted:Qty: 1 on 02/08/2022 by Nicola Ware MD at [facility] Right: Urethra Advance Directives For more information, please contact: [phone] Documents on File Type Date Recorded 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
--- OUTSIDE RECORDS SUMMARY | 2023-09-03 05:33 | XMS_ITS | Referral Summary ---
Author Organization [facility] Address [address] [place] [address] Care Team Providers Care Tenderizer Tender Name Role Phone Cesar Mccollum Primary Care Provider [phone] Allergies No known active allergies Medications Medication [...] on file Medical Devices Implanted Type Area Photography Teacher Device Identifier Shelf Expiration Date Model / Serial / Lot Stent Ureteral Polaris Ultra [id number] - [id number] Implanted:Qty : 1 on 02/08/2022 by Nicola Ware MD at [facility] Stent Right: U[employer]ter [employer] [id number] 10/08/2024 [id number] Explanted Type Area Photography Teacher Device Identifier Shelf Expiration Date Model / Serial / Lot Stent Came Out Of The Right Ureter Explanted:Qty: 1 on 02/08/2022 by Nicola Ware MD at [facility] Right: Urethra Advance Directives For more information, please contact: [phone] Documents on File Type Date Recorded 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
--- OUTSIDE RECORDS SUMMARY | 2023-09-03 05:33 | XMS_ITS | Clinical Summary ---
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 For routine questions regarding patient records, call [phone] during business hours, M-F 8:00 AM - 5:00 PM Central Time. Record requests for emergency care only can be directed to [phone] at any time.[facility] Allergies No known active allergies Medications Medication Sig Dispensed Refills Start Date End Date Status amLODIPine (NORVASC) 10 mg tablet Take 10 mg by mouth daily. 0 Suspended atorvastatin (LIPITOR) 40 mg tablet TK 1 T PO QHS 0 08/14/19 24 Discontinued bicalutamide (CASODEX) 50 mg tablet TK 1 T PO D 0 08/14/19 24 Discontinued clopidogreL (PLAVIX) 75 mg tablet Take 75 mg by mouth daily. 0 Suspended metoprolol succinate (TOPROL-XL) 50 mg 24 hr tablet Take 50 mg by mouth daily. 0 Suspended nitroglycerin (NITROSTAT) 0.[address] 0.4 mg under the tongue. [address] Susp[address] aspirin [address] tablet Take 81 mg by mouth daily. 08/14/19 24 Discontinued tamsulosin (FLOMAX) 0.4 mg 24 hr capsule TAKE 1 CAPSULE(0.4 MG) BY MOUTH DAILY 30 capsule 1 Suspended Additional Information enzalutamide (XTANDI) 40 mg capsule Take 120 mg by mouth daily. Take with or without food at the same time each day. Swallow it whole. Suspended iron,carbonyl-v itamin C (VITRON-C) 65 mg iron- [...] Take 50 mg by mouth daily. Suspended Xarelto 10 mg tablet Take 10 mg by mouth daily. Suspended cefdinir (OMNICEF) 300 mg capsule Take 1 capsule (300 mg total) by mouth 2 (two) times a day before breakfast and dinner for 2 days. Then take 1 capsule 2 times a day before breakfast and dinner for 3 days the day before, day of, day after catheter removal. 10 capsule 4 08/31/19 24 trospium (SANCTURA) 20 mg tablet Take 1 tablet (20 mg total) by mouth 2 (two) times a day as needed (bladder spasms). please stop 24 hours prior to catheter removal 20 tablet 4 Suspended Additional Information bacitracin 500 unit/gram ointment Apply 1 Application topically 4 (four) times a day as needed (catheter irritaiton). Apply to tip of penis as needed for catheter irritation. 30 g 4 Suspended Additional Information cefdinir (OMNICEF) 300 mg capsule Take 1 capsule (300 mg total) by mouth 2 (two) times a day before breakfast and dinner for 3 days. Please take day before, day of, day after catheter removal 6 capsule 4 08/26/19 24 Discontinued(Dup licate order) Active Problems Problem Noted Date Diagnosed Date Hematuria Gross 08/31/2023 Hematuria 08/13/2023 Lymphedema 03/21/2020 Primary Malignant Neoplasm Of Prostate 0 Cancer Staging:Clinical stage from 03/03/2020:Stage IVB(cT4, cN1, pM1b, PSA: 161.9) - Signed by Tereso Frazier M.D. on 03/21/2020 Encounters Date Type Department Care Team Description 09/01/2023 10:05 AM CDT Ancillary Procedure Department of Nursing Arrived 08/31/2023 12:36 PM CDT - 08/31/2023 2:31 PM CDT Surgery [facility] [address] [place] [phone] Mayur Alvarez M.D. CYSTOSCOPY EVACUATION CLOTS 08/31/2023 12:34 PM CDT Anesthesia Event [facility] [address] [place] [phone] Joe Stoll M.D. Benjamin Williamson, DEVELOPMENT CHEMIST, GAVIN 08/31/2023 12:25 PM CDT Ancillary Procedure Department of General Surgery Arrived 08/30/2023 7:35 PM CDT - Present Hospital Encounter [facility], [facility], First Floor [address] [place] [phone] Kirstin Hughes M.D. Thompson, R. Houston, M.D. Hematuria (Primary Dx); Tachycardia 08/30/2023 Documentation Department of Urology in [place], [place] [address] [place] [phone] Corin Ring M.D. 08/30/2023 Intake [facility] 08/26/2023 Orders Only Department of Urology in [place], [place] [address] [place] [phone] Paula Hernandez M.D. 08/23/2023 12:45 AM CDT Ancillary Procedure Department of Nursing 08/15/2023 8:30 AM CDT Anesthesia Event [facility] [address] [place] [phone] Hayde Song M.D. 08/15/2023 7:55 AM CDT - 08/15/2023 11:23 AM CDT Surgery [facility] [address] [place] [phone] Boubacar Brock M.D. Palliative EXPLORATORY LAPAROTOMY, CYSTOTOMY CLOSURE, RIGHT URETERAL STENT EXCHANGE 08/13/2023 4:35 PM CDT Ancillary Procedure Department of Radiology in [place], [place] [address] [place] [phone] Carlos Alberto Henson M.D. 08/13/2023 3:42 PM CDT - 08/26/2023 4:11 PM CDT Hospital Encounter [facility], [facility], Sixth Floor [address] [place] [phone] Darnell Garcia M.D. Chow, George K, M.D. Decline Functional Status [R53.81] (Primary Dx); Hematuria [R31.9] Discharge Disposition: Home or Self Care 08/13/2023 Intake [facility] from Last 3 Months Social History Tobacco Use Types Packs/Day Years Used Date Smoking Tobacco: Never Smokeless Tobacco: Never Tobacco Cessation:Counseling Given: Not Answered [facility] Utilities Answer Date Recorded In the past 12 months has [facility] [email or web address], gas, oil, or water [employer] threatened to shut off services in your [...] your living situation today? I have a [facility] place to live 08/13/2023 Sex and Gender Information Value Date Recorded Sex Assigned at Not on file Gender Identity Not on file Sexual Orientation Not on file Last Filed Vital Signs Vital Sign Reading Time Taken Comments Blood Pressure 151/77 09/03/2023 3:00 AM CDT Pulse 85 09/03/2023 3:00 AM CDT Temperature 36.7 ??C (98.1 ??F) 09/02/2023 1 0:04 PM CDT Respiratory Rate 17 09/02/2023 10:0 4 PM CDT Oxygen Saturation 98% 09/03/2023 3:00 AM CDT Inhaled Oxygen Concentration - - Weight 92.4 kg (203 lb 11.3 oz) 024 10:48 AM CDT Height 180.3 cm (5' 11) 08/30/2023 10: 55 PM CDT Body Mass Index 28.52 08/25/2023 10:40 AM CDT Plan of Treatment Upcoming Encounters Date Type Department Care Team (Late st Contact Info) Description 09/07/2023 11:00 AM CDT Procedure visit Department of Urology in [place], [place] [address] [place] [phone] Sima Venegas M.D. [address] [place] [phone] Health Maintenance Due Date Last Done Comments Zoster Vaccines (1 of 2) 1989 Depression Screening (Annual PHQ-2) 04/11/2023 Fall Risk Screen (Annual) 04/11/2023 DTaP,Tdap,and Td Vaccines (2 - Td or Tdap) 09/07/2026 09/07/2016 Influenza Vaccine Completed 03/08/2023, 01/28/2022 COVID-19 Vaccine Completed 07/21/2023, , 09/13/2022, Additional history exists Pneumococcal vaccine (65+ years) Completed 07/21/19 24 Medical Devices Implanted Type Area Floral Decorator Device Identifier Shelf Expiration Date Model / Serial / Lot Clp Hrzn Ti 6 Clp Lg Orng - [id number] Implanted:Qt y: 1 on 08/15/2023 by Boubacar Brock M.D. at [facility] [place] Hardware e.g. pins/screws /rods [employer]dom[employer] [id number] 02/29/2028 [id number] / / [id number] Clp Hrzn Ti 6 Clp Lg Orng - [id number] Implanted:Qt y: 1 on 08/15/2023 by Boubacar Brock M.D. at [facility] [place] Hardware e.g. pins/screws /rods [employer] [id number] 02/29/2028 [id number] / / [id number] 4 Clp Hrzn Ti 6 Clp Md Monty - [id number] Implanted:Qt y: 1 on 08/15/2023 by Boubacar Brock M.D. at [facility] [place] Hardware e.g. pins/screws /rods [employer]dom[employer] [id number] 03/13/2028 [id number] / / [id number] 1 Clp Hrzn Ti 6 Clp Md Monty - [id number] Implanted:Qt y: 1 on 08/15/2023 by Boubacar Brock M.D. at [facility] [place] Hardware e.g. pins/screws /rods [employer]dom[employer] [id number] 03/21/2028 [id number] / / [id number] 3 Stnt Uret Inl 6fx24 - [id number] Implanted:Qt y: 1 on 08/15/2023 by Jakob De Paz M.D. at [facility] [place] Ureteral Stent N/A: Ureter C.[employer].Bard [id number] 11/18/2027 [id number] / / [id number] Procedures The patient is currently admitted. The information in this section might not be complete until the patient is discharged. Procedure Name Priority Date/Time Associated Diagnosis Comments CBC WITHOUT DIFFERENTIAL, B Timed 09/03/2023 3:29 AM CDT HEPARIN LEVEL ANTI-XA ASSAY, P Timed 09/03/2023 3:29 AM CDT HEPARIN LEVEL ANTI-XA ASSAY, P Timed 09/02/2023 2:57 AM CDT CBC WITHOUT DIFFERENTIAL, B Routine 09/01/2023 8:16 PM CDT ADULT OXYGEN THERAPY Routine 09/01/2023 8:00 PM CDT HEPARIN LEVEL ANTI-XA ASSAY, P Timed 09/01/2023 6:50 PM CDT NURSING IMAGE EXAM Routine 09/01/2023 10:05 AM CDT ACTIVATED PARTIAL THROMBOPLASTIN TIME (APTT), P STAT 09/01/2023 9:05 AM CDT BASIC METABOLIC PANEL, S/P Routine 08/31/2023 9:36 PM CDT CBC WITHOUT DIFFERENTIAL, B Routine 08/31/2023 9:36 PM CDT ADULT OXYGEN THERAPY Routine 08/31/2023 8:00 PM CDT FL FLUORO LESS THAN 1 HOUR RAD - Routine (most inpatients and all outpatients) 08/31/2023 2:12 PM CDT LDA ANE NON-SURGICAL AIRWAY Routine 08/31/2023 12:43 PM CDT SURGERY IMAGE EXAM Routine 08/31/2023 12:25 PM CDT CYSTOSCOPY CYSTOGRAM VOIDING 08/31/2023 12:17 PM CDT Hematuria CYSTOSCOPY EVACUATION CLOTS 08/31/2023 12:[address] CYSTOGRAM WITHOUT IV CONTRAST RAD - Semiurgent (Fast; most ED patients; some inpatients) 08/31/2023 11:03 AM CDT ADULT OXYGEN THERAPY Routine 08/31/2023 8:00 AM CDT TRANSFUSE RED BLOOD CELLS Routine 08/31/2023 7:28 AM CDT HEMOGLOBIN, B Routine 08/31/2023 4:21 AM CDT ADULT OXYGEN THERAPY Routine 08/30/2023 10:40 PM CDT ADULT OXYGEN THERAPY Routine 08/30/2023 10:40 PM CDT ADULT OXYGEN THERAPY Routine 08/30/2023 10:40 PM CDT PREPARE RED BLOOD CELLS Routine 08/30/2023 9:50 PM CDT TYPE AND SCREEN Routine 08/30/2023 9:50 PM CDT LACTATE, B/P STAT 08/30/2023 9:50 PM CDT BASIC METABOLIC PANEL, S/P STAT 08/30/2023 9:49 PM CDT CBC WITH DIFFERENTIAL, B STAT 08/30/2023 9:49 PM CDT DX CHEST AP OR PA AND LATERAL 2 VIEWS RAD - Semiurgent (Fast; most ED patients; some inpatients) 08/30/2023 9:29 PM CDT US URINARY BLADDER RAD - Semiurgent (Fast; most ED patients; some inpatients) 08/30/2023 9:14 PM CDT ECG STAT 08/30/2023 7:44 PM CDT IR PICC LINE REMOVAL RAD - Routine [...] LINE INSERTION Routine 08/15/2023 9:51 AM CDT DE US GUIDE VASC ACCESS Routine 08/15/2023 9:51 AM CDT DE ARTL CATH/CNULA MONITOR PERC Routine 08/15/2023 9:51 [...] CDT from Last 3 Months Results * Heparin Anti-Xa Assay (09/03/2023 3:29 AM CDT) Only the most recent of12 resultswithin the time period is included. Heparin Anti-Xa, P 0.26 IU/mL 2023 4:07 AM CDT DTL Comment: UFH therapeutic range: [...] or unfractionated heparin (UFH). Blood (Blood, Venous) 09/03/2023 3:29 AM CDT 09/03/2023 3:45 AM CDT Mayur Alvarez M.D. LAB BLOOD NON A DD-ON [facility] [address] [place] [address], [facility] [address] [place] [address] * (ABNORMAL) CBC without Differential (09/03/2023 3:29 AM CDT) Only the most recent of12 resultswithin the time period is included. Hemoglobin 8.0(L) 13.2 - 16.6 g/dL 09/03/2023 3:51 AM CDT DTL Hematocrit 24.6(L) 38.3 - 48.6 % 09/03/2023 3:51 AM CDT DTL Erythrocytes 2.76(L) 4.35 - 5.65 x10(12)/L 09/03/2023 3:51 AM CDT DTL MCV 89.1 78.2 - 97.9 fL 09/03/2023 3:51 AM CDT DTL RBC Distrib Width 16.2(H) 11.8 - 14.5 % 09/03/2023 3:51 AM CDT DTL Platelet Count 277 135 - 317 x10(9)/L 09/03/2023 3:51 AM CDT DTL Leukocytes 8.5 3.4 - 9.6 x10(9)/L 09/03/2023 3:51 AM CDT DTL Blood (Blood, Venous) 09/03/2023 3:29 AM CDT 09/03/2023 3:45 AM CDT Paula Hernandez M.D. LAB BLOOD ADD-ON Performing Organization Address City/[facility]/ZIP Co de Phone Number [address] [facility] [facility] [address] [place] [address] * Buttock/Sacrum-Nursing Image Exam (09/01/2023 10:05 AM CDT) Only the most recent of2 resultswithin the time period is included. 09/01/2023 10:0 5 AM CDT Narrative IIMS - 09/01/2023 10:08 AM CDT This order has been created and auto-finalized to support the import of images acquired without order. The clinical documentation to support these images can be found on the encounter that produced images. Provider Not In System IMG NON RAD IMAGI NG PROCEDURES Performing Organization Address City/[facility] Co de Phone Number IIMS NA * APTT (Activated Partial Thromboplastin Time) (09/01/2023 9:05 AM CDT) Only the most recent of11 resultswithin the time period is included. Activated Partial Thrombopl Time, P 28 25 - 37 sec 09/01/2023 9:35 AM CDT STMA Blood (Blood, Venous) 09/01/2023 9:05 AM CDT 09/01/2023 9:21 AM CDT Paula Hernandez M.D. LAB BLOOD ADD-ON [facility] [address] [place] [address], [facility] [address] [place] [address] * (ABNORMAL) Basic Metabolic Panel (08/31/2023 9:36 PM CDT) Only the most recent of9 resultswithin the time period is included. Potassium, S 4.0 3.6 - 5.2 mmol/L 08/31/2023 10:57 PM CDT DTL Sodium, S 138 135 - 145 mmol/L 08/31/2023 10:57 PM CDT DTL Chloride, S 106 98 - 107 mmol/L 08/31/2023 10:57 PM CDT DTL Bicarbonate, S 20(L) 22 - 29 mmol/L 08/31/2023 10:57 PM CDT DTL Anion Gap 12 7 - 15 08/31/2023 10:57 PM CDT DTL BUN (Blood Urea Nitrogen), S 16 8 - 24 mg/dL 08/31/2023 10:57 PM CDT DTL Creatinine 1.17 0.74 - 1.35 mg/dL 08/31/2023 10:57 PM CDT DTL Estimated GFR (eGFR) 61 >=60 mL/min/BSA 08/31/2023 10:57 PM CDT DTL Comment: Estimated GFR calculated using the 2020 CKD_EPI creatinine equation. Calcium, Total, S 7.5(L) 8.8 - 10.2 mg/dL 08/31/2023 10:57 PM CDT DTL Glucose, S 112 70 - 140 mg/dL 08/31/2023 10:57 PM CDT DTL Blood (Blood, Venous) 08/31/2023 9:36 PM CDT 08/31/2023 10:11 PM CDT Paula Hernandez M.D. LAB BLOOD ADD-ON [facility] [address] [place] [address], [facility] DTL [facility] [address] [place] [address] * FL Fluoro Less Than 1 Hour (08/31/2023 2:12 PM CDT) Only the most recent of2 resultswithin the time period is included. Narrative 152 HOS LOS RST - 08/31/2023 2:13 PM CDT This exam does not require a radiologist review or interpretation. Please refer to the patient's medical record on this date for clinical details. Mayur Alvarez M.D. IMG FLUOROSCOPY PROCEDURES Performing Organization Address [facility]/ZIP Co de Phone Number 152 HOS LOS RST * LDA ANE NON-SURGICAL AIRWAY (08/31/2023 12:43 PM CDT) Narrative Benjamin Williamson APRN, CRNA - 08/31/2023 12:43 PM CDT Benjamin Williamson APRN, CRNA ? 08/31/2023 12:55 PM Airway Date/Time: 08/31/2023 12:43 PM Performed by: Benjamin Williamson APRN, CRNA Authorized by: Joe Stoll M.D. ?? Patient location during procedure: OR / Procedure Area PROCEDURE DETAILS: Mask difficulty assessment: not attempted Final airway type: supraglottic airway Device size: 5 Number of attempt to successful placement: 1 Supraglottic device: LMA unique ?? Supraglottic device size: 5 ?? Airway confirmation: bilateral breath sounds, positive ETCO2 and bilateral chest rise Other previous techniques attempted: none PRE PROCEDURE DETAILS: Pre evaluation for airway management: procedure Urgency: elective Preop assessment of probable difficulty: no difficulty anticipated Preoxygenation: bag valve mask SEDATION / ANESTHESIA Anesthesia method: anesthesia POST PROCEDURE DETAILS: ? Procedure outcome: successful ?? Joe Stoll M.D. ANESTHESIA ORDERA BLES * CYSTO-Surgery Image Exam (08/31/2023 12:25 PM CDT) 08/31/2023 12:2 4 PM CDT Narrative IIMS - 08/31/2023 2:03 PM CDT This order has been created and auto-finalized to support the import of images acquired without order. The clinical documentation to support these images can be found on the encounter that produced images. Provider Not In System IMG NON RAD IMAGI NG PROCEDURES IIMS NA * Transfuse Red Blood Cells : (08/31/2023 12:12 PM CDT) Only the most recent of7 resultswithin the time period is included. Paula Hernandez M.D. BLOOD TRANSFUSION OR DERABLES * CT Cystogram without IV Contrast (08/31/2023 11:03 AM CDT) Only the most recent of2 resultswithin the time period is included. Anatomical Region Laterality Modality Abdomen, Pelvis, Abdominal R ST LOS, Abdominal ARZ LOS, Abdominal FLA LOS N/A Computed Tomograp hy, Computed Tomography Impressions 08/31/2023 11:10 AM CDT 1. Interval repair of the urinary bladder dome perforation. The bladder wall is now intact, with no leak. 2. Large volume clot burden in the bladder lumen. Narrative 08/31/2023 11:10 AM CDT EXAM: ??CT CYSTOGRAM WITHOUT IV CONTRAST COMPARISON: ??CT cystogram 08/13/2023. Outside CT 02/29/2020. FINDINGS: ??CT cystogram was performed, with 300 mL of contrast instilled. Tabares catheter in urinary bladder. Partially visualized right ureteral stent. Large volume clot burden in the bladder lumen (series 8 image 19). No urinary bladder leak. The prior urinary bladder dome of perforation has been repaired and is intact. Urinary incontinence with pericatheter leakage during the exam. Right hip arthroplasty. Sacral metastases. Procedure Note Fred Godfrey M.D. - 08/31/2023 EXAM: CT CYSTOGRAM WITHOUT IV CONTRAST COMPARISON: CT cystogram 08/13/2023. Outside CT 02/29/2020. FINDINGS: CT cystogram was performed, with 300 mL of contrast instilled.Tabares catheter in urinary bladder. Partially visualized right ureteralstent. Large volume clot burden in the bladder lumen (series 8 image 19). Nourinary bladder leak. The prior urinary bladder dome of perforation hasbeen repaired and is intact. Urinary incontinence with pericatheterleakage during the exam. Right hip arthroplasty. Sacral metastases. IMPRESSION: 1. Interval repair of the urinary bladder dome perforation. The bladderwall is now intact, with no leak. 2. Large volume clot burden in the bladder lumen. Paula Hernandez M.D. IMG CT PROCEDURES * (ABNORMAL) Hemoglobin (08/31/2023 4:21 AM CDT) [facility] Hemoglobin 7.8(L) 13.2 - 16.6 g/dL 08/31/2023 4:47 AM CDT DTL Blood (Blood, Venous) 08/31/2023 4:21 AM CDT 08/31/2023 4:35 AM CDT Kimi Vieira M.D., M.S. LAB BLOO D ADD-ON [facility] [address] [place] [address], [facility] [address] [place] [address] * Type and Screen (with Reflex Antibody ID) (08/30/2023 9:50 PM CDT) Only the most recent of4 resultswithin the time period is included. [facility] ABORh O Pos Not applicable 08/30/2023 10:17 PM CDT STRM Antibody Screen Negative Negative 08/30/2023 10:31 PM CDT STRM Type & Screen Expiration 09/02/2023 23:59 08/30/2023 10:17 PM CDT STRM Testing Location [facility] DEFAULT 08/30/2023 9:58 PM CDT STRM Blood (Blood, Venous) 08/30/2023 9:50 PM CDT 08/30/2023 9:58 PM CDT Shannan Correa D.O., M.H.A. LAB BLOOD BANK TEST ORDERABLES [facility] [address] [facility] [address] [place] [address] * Lactate (08/30/2023 9:50 PM CDT) [facility] Lactate, P 1.8 0.5 - 2.2 mmol/L 08/30/2023 10:09 PM CDT STMA Blood (Blood, Venous) 08/30/2023 9:50 PM CDT 08/30/2023 9:55 PM CDT Shannan Correa D.O., M.H.A. LAB BLOOD NON ADD-ON Performing Organization Address City/[facility]/ZIP Co de Phone Number [facility] [address] [place] [address] * (ABNORMAL) CBC with Differential, Blood (08/30/2023 9:49 PM CDT) Only the most recent of6 resultswithin the time period is included. [facility] Hemoglobin 8.5(L) 13.2 - 16.6 g/dL 08/30/2023 10:00 PM CDT STMA Hematocrit 27.4(L) 38.3 - 48.6 % 08/30/2023 10:00 PM CDT STMA Erythrocytes 3.06(L) 4.35 - 5.65 x10(12)/L 08/30/2023 10:00 PM CDT STMA MCV 89.5 78.2 - 97.9 fL 08/30/2023 10:00 PM CDT STMA RBC Distrib Width 16.7(H) 11.8 - 14.5 % 08/30/2023 10:00 PM CDT STMA Platelet Count 323(H) 135 - 317 x10(9)/L 08/30/2023 10:00 PM CDT STMA Leukocytes 13.0(H) 3.4 - 9.6 x10(9)/L 08/30/2023 10:00 PM CDT STMA Neutrophils 12.54(H) 1.56 - 6.45 x10(9)/L 08/30/2023 10:00 PM CDT DH[facility] Lymphocytes 0.17(L) 0.95 - 3.07 x10(9)/L 08/30/2023 10:00 PM CDT STMA Monocytes 0.31 0.26 - 0.81 x10(9)/L 08/30/2023 10:00 PM CDT STMA Eosinophils <0.03 0.03 - 0.48 x10(9)/L 08/30/2023 10:00 PM CDT STMA Basophils <0.03 0.01 - 0.08 x10(9)/L 08/30/2023 10:00 PM CDT STMA Blood (Blood, Venous) 08/30/2023 9:49 PM CDT 08/30/2023 9:55 PM CDT Shannan Correa D.O., M.H.A. LAB BLOOD ADD- ON [facility] [address] [place] [address], [facility] STMA [facility] [address] [place] [address] DHPM [facility] [address] [place] [address] * DX Chest AP or PA and Lateral 2 Views (08/30/2023 9:29 PM CDT) Anatomical Region Laterality Modality Chest, Thoracic RST LOS, Tho racic ARZ LOS, Thoracic FLA LOS N/A Digital Radiography Impressions 08/31/2023 9:16 AM CDT No radiographic comparison. Patchy opacities in the lower lungs, greater on the right. Mild elevation of the right hemidiaphragm. Trace fluid or pleural thickening right costophrenic angle. Coronary stenting. Degenerative changes thoracic spine. Narrative 08/31/2023 9:16 AM CDT EXAM: ??DX CHEST AP OR PA AND LATERAL 2 VIEWS Procedure Note Valery Morris M.D. - 08/31/2023 EXAM: DX CHEST AP OR PA AND LATERAL 2 VIEWS IMPRESSION: No radiographic comparison. Patchy opacities in the lower lungs, greateron the right. Mild elevation of the right hemidiaphragm. Trace fluid orpleural thickening right costophrenic angle. Coronary stenting.Degenerative changes thoracic spine. Shannan Srinivasan.Alice, M.H.A. IMG DIAGNOSTIC IMAGING PROCEDURES * US Urinary Bladder (08/30/2023 9:14 PM CDT) Anatomical Region Laterality Modality Body, Ultrasound RST LOS, Ul trasound ARZ LOS, Ultrasound FLA LOS Ultrasound Impressions 08/31/2023 8:26 AM CDT There is a large clot burden within the contracted urinary bladder. The largest clot measures 4.9 x 3.8 x 4.7 cm and does not appear to have internal vascularity. Indwelling Tabares catheter. Narrative 08/31/2023 8:26 AM CDT EXAM: US URINARY BLADDER COMPARISON: CT abdomen and pelvis 08/22/2023 Procedure Note Neftaly Rascon M.D. - 08/31/2023 EXAM: US URINARY BLADDER COMPARISON: CT abdomen and pelvis 08/22/2023 IMPRESSION: There is a large clot burden within the contracted urinary bladder. Thelargest clot measures 4.9 x 3.8 x 4.7 cm and does not appear to haveinternal vascularity. Indwelling Tabares catheter. Shannan Srinivasan.O., M.H.A. IMG US PROCEDU RES * ECG 12 Lead (08/30/2023 7:44 PM CDT) Only the most recent of3 resultswithin the time period is included. Ventricular Rate ECG/Min 145 BPM MUSE DE Interval 136 ms MUSE QRSD Interval 64 ms MUSE QT Interval 260 ms MUSE QTC Interval 403 ms MUSE P [place] 44 degrees MUSE R [place] 9 degrees MUSE T Wave [place] -76 degrees MUSE 08/30/2023 7:44 PM CDT 08/30/2023 7:51 PM CDT Impressions MUSE - 08/30/2023 7:51 PM CDT Sinus tachycardia Premature atrial complexes ST and T wave abnormality, consider anterolateral ischemia When compared with ECG of 16-Aug-2023 21:43, T wave inversion now evident in Anterolateral leads Premature atrial complexes are now present Reviewed by BETTY Guzmán Narrative Procedure Note Regan Cui M.D., Ph.D. - 08/30/2023 IMPRESSION: Sinus tachycardia Premature atrial complexes ST and T wave abnormality, consider anterolateral ischemia When compared with ECG of 16-Aug-2023 21:43, T wave inversion now evident in Anterolateral leads Premature atrial complexes are now present Reviewed by BETTY Guzmán Kirstin Hughes M.D. ECG ORDERABLES MUSE NA * IR PICC Line Removal (08/26/2023 11:50 [...] line. NR Paula CHOUDHARY IR PROCEDURES * (ABNORMAL) Renal Function Panel (08/26/2023 3:20 [...] CDT Boubacar Brock M.D. LAB BLOOD ADD-ON [facility] [address] [place] [address], [facility] [address] [place] [address] * Magnesium (08/26/2023 3:20 AM CDT) Only the most recent of6 resultswithin the time period is included. Magnesium, S 2.1 1.7 - 2.3 mg/dL 08/26/2023 4:04 AM CDT DTL Blood (Blood, Venous) 08/26/2023 3:20 AM CDT 08/26/2023 3:50 AM CDT Boubacar Brock M.D. LAB BLOOD ADD-ON Performing Organization Address City/[facility]/ZIP Co de Phone Number [facility] [address] 200 [place] [address] * (ABNORMAL) Potassium (08/23/2023 9:58 PM CDT) Potassium, S 3.5(L) 3.6 - 5.2 mmol/L 08/23/2023 10:45 PM CDT DTL Blood (Blood, Venous) 08/23/2023 9:58 PM CDT 08/23/2023 10:30 PM CDT Boubacar Brock M.D. LAB BLOOD ADD-ON Performing Organization Address [facility] Co de Phone Number [facility] [address] 200 [place] [address] * (ABNORMAL) Phosphorus Inorganic (08/23/2023 9:58 PM CDT) Only the most recent of2 resultswithin the time period is included. Phosphorus (Inorganic), S 2.1(L) 2.5 - 4.5 mg/dL 08/23/2023 10:45 PM CDT DTL Blood (Blood, Venous) 08/23/2023 9:58 PM CDT 08/23/2023 10:30 PM CDT aPula Hernandez M.D. LAB BLOOD ADD-ON Performing Organization Address City/[facility]/ZIP Co de Phone Number [facility] 200 [place] [address] * Triglycerides (08/23/2023 3:42 AM CDT) Only [...] CDT Boubacar Brock M.D. LAB BLOOD ADD-ON [facility] [address] [place] [address], [facility] DTL [facility] 200 [place] [address] * Glucose, POCT (08/22/2023 11:38 PM CDT) Glucose, POCT, B 117 70 - 140 mg/dL 08/23/2023 1:06 AM CDT PCLX Site Capillary 08/23/2023 1:06 AM CDT PCLX Last Intake NPO 08/23/2023 1:06 AM CDT PCLX Blood 08/22/2023 11:3 8 PM CDT 08/23/2023 1:06 AM CDT Unknown Provider LAB POCT ORDERABLES- MANUAL Performing Organization Address City/[facility]/ZIP Co de Phone Number POC [facility] 200 [place] [address], [facility] PCLX [facility] POC [address] [place] [address] * CT Abdomen Pelvis without IV Contrast [...] transport rates. All other fluids refer to [email or web address].Knowrom for further interpretive information. This test has been modified from the director of pupil personnel program's instructions. Its performance characteristics were determined by [facility] in a manner consistent with CLIA requirements. This test has not been cleared or approved by the U.S. Food and Drug Administration. Fluid Type, Creatinine Fluid, Abdomen 08/22/2023 3:52 PM CDT DTL Fluid (Abdomen) 08/22/2023 3 :30 PM CDT 08/22/2023 6:36 PM CDT Corin Ring M.D. LAB BODY FLUIDS AND STOOLS ORDERABLES [facility] [address] [place] [address], [facility] [address] [place] [address] * IR PICC Line Placement (08/22/2023 8:35 AM CDT) Anatomical Region Laterality Modality Chest, Pelvis, Abdomen, Vasc ular Interventional RST LOS, Vascular Interventional ARZ LOS, Vascular Interventional FLA LOS N/A X-Ray Angiography Impressions 08/22/2023 9:05 AM CDT Placement of a right IJ vein single-lumen 4 Senegalese tunneled PowerPICC ready for immediate use. NR [...] advanced into the IVC and a 4 Senegalese dilator advanced over the wire and attached to a one-way stopcock. A suitable exit site in the right anterior chest was anesthetized and a small incision made. A 4 [place]egalese single-lumen PowerPICC was then tunneled from the [...] Wireadvanced into the IVC and a 4 [place]egalese dilator advanced over the wire andattached to a one-way stopcock. A suitable exit site in the right anteriorchest was anesthetized and a small incision made. A 4 [place]e single-lumen PowerPICC was then tunneled fromthe skin [...] of a right IJ vein single-lumen 4 [place]egalese tunneled PowerPICCready for immediate use. NR Kimi Vieira M.D., M.S. IMG KESHIA LAWSON * (ABNORMAL) Comprehensive Metabolic Panel (08/22/2023 2:40 [...] BLOOD ADD-ON Performing Organization Address [facility] Co de Phone Number [facility] [address] [place] [address], [facility] DTL [facility] [address] [place] [address] * Place peripherally inserted central catheter (PICC) [...] applicable for the procedure.: yes ?? Lizette Hravey M.D. PROCEDURE/MINOR SURGICAL ORDERABLES Performing Organization Address [facility] de Phone Number MMODAL NA * DX [...] and management can be found on the AskBARRX MedicalyoExpert site. Link [email or web address] Findings discussed with ??Tayler Greenwood, ?? ([id number]) on 08/17/2023 7:11 PM. Procedure Note Jj [...] be found on theAskMayoExpert site. [email or web address] Findings discussed with Tayler Greenwood MD ([id number]) on 08/17/2023 7:11 PM. IMPRESSION: 1. 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 2. No acute left-sided DVT. Corin CHOUDHARY US PROCEDURES * DX Abdomen 1 View (08/15/2023 1:19 [...] Song M.D. LAB BLOOD NON ADD-O N [facility] [address] [place] [address], [facility] STMRiver[facility] Edge [facility] Laboratories[facility] 200 [place] [address] * Patient Status (08/15/2023 11:56 AM CDT) Only the most recent of2 resultswithin the time period is included. Temperature 36.2 37.0 deg C 08/15/2023 12:04 PM CDT STMA Blood 08/15/2023 11:5 6 AM CDT 08/15/2023 12:03 PM CDT Rae Gonzalez DEVELOPMENT CHEMIST, FEEDER OPERATOR AUTOMATIC, DNAP LAB BLOO D NON ADD-ON [facility] [address] [place], [place] [address] [place] [address] 200 [place] [address] * Sodium, B (08/15/2023 11:56 AM CDT) Only the most recent of2 resultswithin the time period is included. Sodium, B 135 135 - 145 mmol/L 08/15/2023 12:06 PM CDT STMA Blood (Blood, Arterial Line) 08/15/2023 11:56 AM CDT 08/15/2023 12:03 PM CDT Hayde Song M.D. LAB BLOOD NON ADD-O N Performing Organization Address [facility] Co de Phone Number [facility] 200 [place] [address], [facility] 200 [place] [address] * (ABNORMAL) Blood Gas with Coox, Arterial [...] BLOOD NON ADD-O N Performing Organization Address City/[facility]/ZIP Co de Phone Number [facility] 200 [place], [place] [address] [place] [address] 200 [place] [address] * Potassium, Blood (08/15/2023 11:56 AM CDT) Only the most recent of2 resultswithin the time period is included. Potassium, B 4.3 3.6 - 5.2 mmol/L 08/15/2023 12:07 PM CDT [facility] Blood (Blood, Arterial Line) 08/15/2023 11:56 AM CDT 08/15/2023 12:03 PM CDT Hayde Song M.D. LAB BLOOD NON ADD-O N Performing Organization Address City/[facility] Co de Phone Number [facility] [address] [place], [place] [address] [place] [address] 200 [place] [address] * (ABNORMAL) Glucose, Whole Blood (08/15/2023 11:56 AM CDT) Only the most recent of2 resultswithin the time period is included. Glucose 144(H) 70 - 140 mg/dL 08/15/2023 12:06 PM CDT STMA Blood (Blood, Arterial Line) 08/15/2023 11:56 AM CDT 08/15/2023 12:03 PM CDT Hayde Song M.D. LAB BLOOD ADD-ON Performing Organization Address [facility] Co de Phone Number [facility] [address] 200 [place] [address] * (ABNORMAL) Calcium, Ionized (08/15/2023 11:56 AM CDT) Only the most recent of2 resultswithin the time period is included. Calcium, Ionized, B 4.53(L) 4.65 - 5.30 mg/dL 08/15/2023 12:07 PM CDT [facility] Blood (Blood, Arterial Line) 08/15/2023 11:56 AM CDT 08/15/2023 12:03 PM CDT Hayde Song M.D. LAB BLOOD NON ADD-O N Performing Organization Address [facility] Co de Phone Number [facility] [address] [place] [address] * DE ARTL CATH/CNULA MONITOR PERC, DE US GUIDE VASC ACCESS, LDA ANE ARTERIAL LINE INSERTION, MC ANE INVASIVE CATH WITH ULTRASOUND (08/15/2023 9:51 AM CDT) Narrative Rae Gonzalez APRN FEEDER OPERATOR AUTOMATIC, DNAP - 08/15/2023 9:51 AM CDT Rae Gonzalez APRN FEEDER OPERATOR AUTOMATIC, DNAP ? 08/15/2023 ??9:52 AM Invasive Catheter [...] ETT location: oral VL device: glide scope [place] scope blade size: 4 Tube size: 7.5 [...] CDT Comment:Specimen Source Site : Blood Narrative [facility] - 08/20/2023 6:02 AM CDT Received Bactec aerobic and Bactec anaerobic bottles Carlos Alberto Henson M.D. LAB [facility]OLOG[facility] - [facility] ORDERABLES [facility] [address] [place] [address], [facility] [address] [address] * (ABNORMAL) Hepatic Function Panel (08/13/2023 5:27 PM CDT) Pathologist [facility] Bilirubin, Total, S 0.8 0.0 - 1.2 [...] Carlos Alberto Henson M.D. LAB BLOOD ADD-ON [facility] [address] [place] [address], [facility] [address] [place] [address] * Prothrombin Time (PT) (08/13/2023 5:27 PM [...] Carlos Alberto Henson M.D. LAB BLOOD ADD-ON [facility] [address] [place] [address], [facility] 200 [place] [address] * Osmolality, Urine (08/13/2023 5:07 PM CDT) Pathologist [facility] Osmolality, U 351 150 - 1150 mOsm/kg 08/13/2023 7:46 PM CDT DTL Urine 08/13/2023 5:07 PM CDT 08/13/2023 5:45 PM CDT Carlos Alberto Henson M.D. LAB URINE ORDERABLES [facility] [address] [place] [address], [facility] [address] [place] [address] * (ABNORMAL) Dipstick, Urine (08/13/2023 5:07 PM [...] M.D. LAB URINE ORDERABLES Performing Organization Address City/[facility]/ZIP Co de Phone Number [facility] [address] [place] [address], [facility] [address] [place] [address] * pH, Random, Urine (08/13/2023 5:07 PM CDT) pH, Random, U 7.0 4.5 - 8.0 08/13/2023 7:46 PM CDT DTL Urine 08/13/2023 5:07 PM CDT 08/13/2023 5:45 PM CDT Carlos Alberto Henson M.D. LAB URINE ORDERABLES [facility] [address] [place] [address], [facility] [address] [place] [address] * (ABNORMAL) Microscopic Manual (08/13/2023 5:07 PM [...] Carlos Alberto Henson M.D. LAB URINE ORDERABLES [facility] [address] [place] [address], [facility] [address] [place] [address] * (ABNORMAL) Bacterial Culture, Aerobic + Susceptibility, [...] Carlos Alberto Henson M.D. LAB MICROBIOLOGY - [facility] ORDERABLES [place] [address] [place] [address], [facility] DTL [place] [address] [place] [address] * (ABNORMAL) Urinalysis, with Microscopic: Urine, Midstream [...] CDT DTL Predicted 24 [place] [address](H) <229 mg/24 h 08/13/2023 8:50 PM CDT DTL Predicted Range 67399-450479 mg/24 h 08/13/2023 8:50 PM CDT DTL Comment Micro done on <2.5 mL 08/13/2023 7:55 PM CDT DTL Urine (Urine, Midstream) 08/13/2023 5:07 PM CDT 08/13/2023 5:44 PM CDT Carlos Alberto Henson M.D. LAB URINE ORDERABLES [facility] [address] [place] [address], [facility] [address] [place] [address] * Interpretation of Outside CT Abdomen and [...] Advance Directives For more information, please contact: [phone] * Full Code (Latest Code Status on File) Date Activated Date Inactivated Comments 08/30/2023 10:40 PM Question Answer Comments Full Code: Not Discussed Due to: Patient not available * Full Code Date Activated Date Inactivated Comments 08/13/2023 4:30 PM 08/26/2023 6:58 PM Question Answer Comments Full Code: Discussed Care Teams Slice Cutting Machine Operator Relationship Specialty Start Date End Date Elsewhere, Pcp PCP - General Internal Medicine 08/13/23
--- OUTSIDE RECORDS SUMMARY | 2023-09-03 05:34 | XMS_ITS ---
Author Organization [facility] Address [address] [place] [address] Care Team Providers Care Machine Captain Name Role Phone Unavailable Unavailable Unavailable Surgery Details Not on file Complications Check Surgery Details section. Procedure Estimated Blood Loss Check Surgery Details section. Procedure Findings Check Surgery Details section. Procedure Specimens Taken Check Surgery Details section.
--- OUTSIDE RECORDS SUMMARY | 2023-09-03 05:34 | XMS_ITS | Encounter Summary ---
Author Organization [facility] Address [address] [place] [address] Care Team Providers Care Trade Embalmer Name Role Phone Elsewhere, Pcp Primary Care Provider Unavailabl e Encounter Details Date Type Department Care Team (Late st Contact Info) Description 09/01/2023 10:05 AM CDT Ancillary Procedure Department of Nursing Arrived Social History Tobacco Use Types Packs/Day Years Used Date Smoking Tobacco: Never Smokeless Tobacco: Never [facility] Utilities Answer Date Recorded In the past 12 months has [facility] electric, gas, oil, or water company [...] your living situation today? I have a [facility] place to live 08/13/2023 Sex and Gender Information Value Date Recorded Sex Assigned at Not on file Gender Identity Not on file Sexual Orientation Not on file documented as of this encounter Plan of Treatment Upcoming Encounters Date Type Department Care Team (Late st Contact Info) Description 09/07/2023 11:00 AM CDT Procedure visit Department of Urology in [place], [place] [address] [place] [address] Sima Venegas M.D. [address] [place] [address] documented as of this encounter Procedures Procedure Name Priority Date/Time Associated Diagnosis Comments NURSING IMAGE EXAM Routine 09/01/2023 10 :05 AM CDT documented in this encounter Results * Buttock/Sacrum-Nursing Image Exam (09/01/2023 10:05 AM CDT) 09/01/2023 10:0 5 AM CDT Narrative [facility] [...] on filedocumented in this encounter Care Teams Trade Embalmer Relationship Specialty Start Date End Date Elsewhere, Pcp PCP - General Internal Medicine 08/13/23 documented as of this encounter
--- OUTSIDE RECORDS SUMMARY | 2023-09-03 05:34 | XMS_ITS | Encounter Summary ---
Author Organization [facility] Address [address] [place] [address] Care Team Providers Care Tool Inspector Name Role Phone Elsewhere, Pcp Primary Care Provider Unavailabl e Encounter Details Date Type Department Care Team (Late st Contact Info) Description 08/31/2023 12:25 PM CDT Ancillary Procedure Department of General Surgery Arrived Social History Tobacco Use Types Packs/Day Years Used Date Smoking Tobacco: Never Smokeless Tobacco: Never [facility] Utilities Answer Date Recorded In the past 12 months has [facility] electric, gas, oil, or water company [...] CDT Procedure visit Department of Urology in [place], [place] [address] [place] [address] Sima Venegas M.D. [address] [place] [address] documented as of this encounter Procedures Procedure Name Priority Date/Time Associated Diagnosis Comments SURGERY IMAGE EXAM Routine 08/31/2023 12 :25 PM CDT documented in this encounter Results * CYSTO-Surgery Image Exam (08/31/2023 12:25 PM [...] on filedocumented in this encounter Care Teams Tool Inspector Relationship Specialty Start Date End Date Elsewhere, Pcp PCP - General Internal Medicine 08/13/23 documented as of this encounter
--- OUTSIDE RECORDS SUMMARY | 2023-09-03 05:34 | XMS_ITS ---
Author Organization [facility] Address [address] [place] [address] Care Team Providers Care Three Dimensional Art Instructor Name Role Phone Elsewhere, Pcp Primary Care [...] On Elapsed Days Session Dose Total Dose [id number] 04/28/2020 32 300 cGy 6,000 cGy Lifetime Dose Tracking * Chemical Lifetime Dose Automatic Entry Manual Entr y Radiation 10.31 mGy 10.31 mGy 0 mGy Fluoro Time 0.955 minutes 0.955 minutes 0 minutes DAP (uGy-m2) 257.44 uGy-m2 257.44 uGy-m2 0 uGy-m2
--- OUTSIDE RECORDS SUMMARY | 2023-09-03 05:34 | XMS_ITS | Encounter Summary ---
Author Organization [facility] Address [address] [place] [address] Care Team Providers Care Machine Hostler Name Role Phone Elsewhere, Pcp Primary Care Provider Unavailabl e Reason for Visit * Reason Comments Urinary Problem Rapid Heart Rate Encounter Details Date Type Department Care Team (Late st Contact Info) Description 08/31/2023 12:36 PM CDT - 08/31/2023 2:31 PM CDT Surgery [facility]ST [facility] MAIN OR [address] [place] [address] Mayur Alvarez M.D. [address] [place] [address] CYSTOSCOPY EVACUATION CLOTS Social History Tobacco Use Types Packs/Day Years Used Date Smoking Tobacco: Never Smokeless Tobacco: Never [facility] Utilities Answer Date Recorded In the past 12 months has [facility] Hublished, gas, oil, or water [employer] threatened to shut off services in your [...] your living situation today? I have a [facility] place to live 08/13/2023 Sex and Gender Information Value Date Recorded Sex Assigned at Not on file Gender Identity Not on file Sexual Orientation Not on file documented as of this encounter Last Filed Vital Signs Vital Sign Reading Time Taken Comments Blood Pressure 133/77 08/31/2023 2:30 PM CDT Pulse 96 08/31/2023 2:30 PM CDT Temperature 37.1 ??C (98.8 ??F) 08/31/2023 2:15 PM CD T Respiratory Rate 16 08/31/2023 2:30 PM CDT Oxygen Saturation 100% 08/31/2023 2:30 PM CDT Inhaled Oxygen Concentration - - Weight - - Height 180.3 cm (5' 11) 08/30/2023 10:55 PM CDT Body Mass Index - - documented in this encounter Discharge Instructions * Patient Instructions* Carmen Louis, R.N. - 08/31/2023 9:44 AM CDT The Senior LinkAge Line?? is a service of the [place] [employer] in partnership with [place]'s Area Agencies on Aging. It is a free service of the [facility] that connects older [place] and their families with the help they need. Call the Senior LinkAge Line?? at: [phone] M-F, 8am-4:30pm to connect with specialists that are available to assist you with your specific needsor check out their website at [email or web address] documented in this encounter Progress Notes * Paula Hernandez M.D. - 09/02/2023 6:25 AM CDT UROLOGY CHIEF SERVICE PROGRESS NOTE SUBJECTIVE Kalen Vega was seen by the team during morning rounds. Feeling overall well this morning. Denies abdominal pain. Denies suprapubic fullness. Catheter draining light peach on slow CBI. tolerating PO no n.v OBJECTIVE Vital signs: AVSS Physical Exam: General: No acute distress Neuro: Alert and oriented, no gross deficits. Cardiovascular: Regular rate. Pulmonary: Normal respiratory effort. Abdomen: Non-tender, non-distended. rayshawn in place : Light smith urine moderate CBI Labs: Hemoglobin 8.5 from 8.6 Cultures: No new cultures Interval Imaging: no new ASSESSMENT AND PLAN: Mr. Vega is a pleasant 83 y.o. male with urologic history advanced prostate cancer with bone metastases on Xtandi as well as hydronephrosis and a right atrophic kidney managed with indwelling ureteral stent previously managed by outside urologist. 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 On 08/11 he suffered hematuria, clot obstruction, intraperitoneal bladder perforation. At the time he was on both Plavix and Eliquis. He underwent open exploratory laparotomy with cystotomy closure and right-sided ureteral stent exchange on 08/15/23. Postoperative course notable for ileus requiringNG tube placement, DVT of unclear chronicity managed with heparin drip transitioned to home Xareltoand hematuria. He was discharged 08/25. Unfortunately, he presented to local emergency department with worsened hematuria, clot obstructionand we recommended transfer here for management of hematuria, CBI. Last dose of Plavix was 08/29. Last dose of Xarelto was 08/28. CT cystogram 08/30 demonstrated large volume of clot within the bladder. No evidence of perforation.After discussion with the patient in his family we elected to take him for cystoscopy with clot evacuation we are about 6 cm of well-formed clot was identified and removed from the bladder. He was maintained on CBI postoperatively and his anticoagulation was held. On 08/31 we initiated heparin drip. 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, home Xarelto (holding since 08/11) --SubQ heparin initiated POD 0 --LE US obtained 5/8 PM due to patient's sustained tachycardia in the 1-2d prior, did show R DVT, unclear if acute or chronic --holding home anticoagulation for now # E coli bacteremia -08/12 blood culture positive nunez susceptible E coli -repeat cultures 08/14 were negative -we will discontinue ceftriaxone 09/01 # antiplatelet therapy -CAD status post cardiac stents -last dose of Plavix 08/29 -we are holding it for now PLAN: Stop CBI, see how he does without it on the heparin drip Consider restarting home anticoagulation tomorrow, 09/02 Hospital Summary: Diet: Regular Activity: Ad kong DVT PPX: Holding GI PPX: None Bowel Regimen: Senna, MiraLax IVF: LR 100 Abx/Microbiology: No new cultures Pain Control: Tylenol, 2.5/5 oxycodone Home Meds Resumed: Enzalutamide, metoprolol, mirabegron, rosuvastatin, trospium Held Home Meds: Plavix, Xarelto Consults: None Paula Hernandez M.D. 09/02/2023 10:45 AM CDT Please page the Urology Chief Service with questions or concerns. Pager during business hours: [phone] Pager after hours: [phone] * Michelle Willams R.N., C.W.C.N. - 09/01/2023 11:43 AM CDT [facility] Wound RN consulted to assess Kalen Vega skin alterations. Wound assessment, pain, and Wilberto score noted in the flowsheet. The patient consented to photography of the affected area for clinical trending purposes. Images were taken and are available in QREADS. History: Per provider note, patient is an 83 y.o. male admitted for worsening hematuria and clot obstructed Jon catheter s/p cystostomy closure with R ureteral stent exchange. Past medical history includes advanced prostate CA w/bone metastases, hydronephrosis, R atrophic kidney, radiation cystiti s/proctitis, anemia, CAD s/p cardiac stents and IVC filter placement in 2017. Assessment: The patient was assessed while lying in bed. A pre-existing wound is noted on the coccyx with brown and yellow fibrin and slough present. The periwound is macerated and erythematous with flaking tissue present suggestive of friction involvement. Based on chart review, the patient had a wound present in gluteal cleft identified as moisture related skin damage versus pilonidal cyst. Another possible differential is a cancerous wound. Due to the patient's cancer history, PMR Mist therapy will be deferred at this time. After cleansing, Plurogel applied to the wound bed with aims of debriding non-viable tissue while promoting a moist wound environment. Sureprep was apply to the periwound to protect tissue from moisture and friction. A specialty mattress and ROHO cushion were ordered to assist with pressure redistribution. 09/01/23 1137 Wound 08/23/23 Other (comment) Coccyx ; Multifactorial Wound (Pressure, Moisture, Friction) Date First Assessed/Time First Assessed: 08/23/23 0052 Present on Original Admission: (c) Yes WoundApproximate Age at First Assessment: Unknown Wound Exact Age at First Assessment: (c) Primary WoundType: Other (comment) Location: Coccyx Woun... *Shape Round / oval *Wound Bed Open;Yellow;Brown Tissue Exposed None Odor None *Exudate Amount Scant Drainage Description Serous Janiya-wound Assessment Maceration;Fragile Treatments Cleansed Periwound Treatment Cleansed (Comment);Liquid skin protectant Wound Cleansed with Wound cleanser *Primary Dressing Wound gel *Primary Dressing Frequency of Change Daily & PRN Primary Dressing Changed New Primary Dressing Status Clean;Intact *Secondary Dressing Foam *Secondary Dressing Frequency of Change Every third day & PRN Secondary Dressing Changed New Secondary Dressing Status Clean;Dry;Intact Changed by Wound manager document control Ongoing management Nursing;Wound/casket trimmer Urine Assessment Urine Color Colorless Hematuria Scale [place] Urine Appearance Clear;Sediment Head to toe skin assessment completed and no other concerns. DRESSING RECOMMENDATIONS: #1 Coccyx ; Multifactorial Wound (Pressure, Moisture, Friction) -Cleanse the wound with Vashe wound cleanser. Allow a Vashe moistened 4x4 gauze to sit on wound bedfor 5-10 minutes. Pat dry. -Apply Sureprep to periwound. -Apply a layer of PluroGel, 3mm thick, directly to the wound bed. -Ensure that the PluroGel covers the wound completely. -Cover with a sacral Mepilex border. -Change once daily and PRN. Recommended interventions for pressure redistribution and shear reduction: Offload heels on pillows at all times when in bed. Full 30 degree turns side to side every 2 hours with supine positioning only for meals. Utilize the Shady Wedge to assist in patient positioning at 30 degrees. Ensure that the wedge is positioned so the arrows point up. Place a sheet in-between patient and wedge. Place along patient's back and thighs making sure the sacrum floats. Reposition at least every hour while in the chair. Reposition medical devices per policy. Assess and pad the skin under and surrounding the medical devices with a prophylactic foam dressing. Keep the HOB below 30 degrees except for meals unless medically contraindicated. Utilize the Advanced Wave Low Air Loss and Immersion mattress. Utilize a ROHO cushion when up to the chair. Recommended interventions for moisture control: InterDry?? Ag placed between folds. Allow at least 2 inches of fabric exposed to air on at least one side of the skin fold for moisture evaporation. Can be used up to 5 days unless soiled with stool or urine. Do not rinse with water. Utilize the breathable incontinence underpads while in bed. Adult briefs should only be worn while ambulating or in the chair. Cleanse with foaming cleanser or wipes after each incontinence episode and for routine hygiene cares. Consult recommendations: NA Education: Discussed the plan of care with the patient and nursing. They agree to the plan. The WOC RN will continue to see the patient, contact or reconsult for worsening wounds or new wounds. * Carmen Louis R.N. - 09/01/2023 11:21 AM CDT SUBJECTIVE Patient is followed for discharge planning purposes. Patient was unable to be reached by telephone so patient's son was contacted. Son was updated that preferred home health care did decline and son approved sending referrals to all in-network and will update the patient. Son stated that a Shot Coat Tender visited the home and will be trying to assist both and patient with cares/coordination. OBJECTIVE Patient is located on [facility] room 111. Referrals were sent to the following agencies: Home Medical Care - Admitted Since 08/30/2023 Service Provider Request Status Selected Services Address Phone Fax Patient Preferred [facility] [place] Pending - Request Sent N/A [address] [facility] [address], [facility] [phone] -- [facility] - Home Care Pending - Request Sent N/A [address] [facility] [address], [place] [place] [place] [address] [phone] -- Home Health Care Pending - Request Sent N/A [address] [facility] [address] [address] [phone] -- [facility] Pending - Request Sent N/A [address] [facility] [phone] -- [facility] Pending - Request Sent N/A [address] [facility] [phone] -- [facility] Pending - Request Sent N/A [address], [facility] [address] [phone] -- [facility] Full N/A [address] [facility] [address] -- ASSESSMENT / PLAN ASSESSMENT Service Desk Technician attempted to contact patient on room phone but was unable to get through. Case Manageras able to reach his son who will update that patient that the preferred home health agency was unable to accept and that referrals would be sent to other home health agencies. Requested services arenursing for wound care and catheter and PT/OT. PLAN Service Desk Technician will follow up with referrals. Case Manger will continue to follow. Carmen Louis R.N. 09/01/23 * Paula Hernandez M.D. - 09/01/2023 6:40 AM CDT UROLOGY CHIEF SERVICE PROGRESS NOTE SUBJECTIVE Kalen Vega was seen by the team during morning rounds. Feeling overall well this morning. Denies abdominal pain. Denies suprapubic fullness. Catheter draining light peach on moderate CBI. Moderate CBI continued prior recommendations all night after his procedure Tolerating general diet without nausea or vomiting. OBJECTIVE Vital signs: AVSS Physical Exam: General: No acute distress Neuro: Alert and oriented, no gross deficits. Cardiovascular: Regular rate. Pulmonary: Normal respiratory effort. Abdomen: Non-tender, non-distended. rayshawn in place : Light smith urine moderate CBI Labs: Hemoglobin 8.6 from 7.8 (1 unit PRBCs) Creatinine 1.1 Cultures: No new culture Interval Imaging: CT cystogram demonstrates no evidence of bladder perforation or extravasation. Demonstrates significant clot burden. ASSESSMENT AND PLAN: Mr. Vega is a pleasant 83 y.o. male with urologic history advanced prostate cancer with bone metastases on Xtandi as well as hydronephrosis and a right atrophic kidney managed with indwelling ureteral stent previously managed by outside urologist. 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 On 08/11 he suffered hematuria, clot obstruction, intraperitoneal bladder perforation. At the time he was on both Plavix and Eliquis. He underwent open exploratory laparotomy with cystotomy closure and right-sided ureteral stent exchange on 08/15/23. Postoperative course notable for ileus requiringNG tube placement, DVT of unclear chronicity managed with heparin drip transitioned to home Xareltoand hematuria. He was discharged 08/25. Unfortunately, he presented to local emergency department with worsened hematuria, clot obstructionand we recommended transfer here for management of hematuria, CBI. Last dose of Plavix was 08/29. Last dose of Xarelto was 08/28. CT cystogram 08/30 demonstrated large volume of clot within the bladder. No evidence of perforation.After discussion with the patient in his family we elected to take him for cystoscopy with clot evacuation we are about 6 cm of well-formed clot was identified and removed from the bladder. We have had him on moderate rate CBI since that time. We are holding his anticoagulation. 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, home Xarelto (holding since 08/11) --SubQ heparin initiated POD 0 --LE US obtained 5/8 PM due to patient's sustained tachycardia in the 1-2d prior, did show R DVT, unclear if acute or chronic --holding anticoagulation for now # E coli bacteremia -08/12 blood culture positive nunez susceptible E coli -repeat cultures 08/14 were negative -initiating ceftriaxone this hospitalization due to catheter manipulation # antiplatelet therapy -CAD status post cardiac stents -last dose of Plavix 08/29 -we are holding it for now PLAN: Wean CBI as able Start heparin drip today Ceftriaxone I did talk to the patient about hyperbaric oxygen therapy for presumed. We will ask our colleagues in hyperbaric oxygen therapy to see the patient while inpatient if possible Hospital Summary: Diet: NPO Activity: Ad kong DVT PPX: Holding GI PPX: None Bowel Regimen: Senna, MiraLax IVF: LR 100 Abx/Microbiology: No new cultures Pain Control: Tylenol, 2.5/5 oxycodone Home Meds Resumed: Enzalutamide, metoprolol, mirabegron, rosuvastatin, trospium Held Home Meds: Plavix, Xarelto Consults: None Paula Hernandez M.D. 09/01/2023 10:45 AM CDT Please page the Urology Chief Service with questions or concerns. Pager during business hours: [phone] Pager after hours: [phone] * Paula Hernandez M.D. - 08/31/2023 10:45 AM CDT UROLOGY CHIEF SERVICE PROGRESS NOTE SUBJECTIVE Kalen Vega was seen by the team during morning rounds. Feeling overall well this morning. Denies abdominal pain. Denies suprapubic has. Catheter draining light smith urine on moderate rate CBI. Tolerating general diet without nausea or vomiting. OBJECTIVE Vital signs: AVSS Physical Exam: General: No acute distress Neuro: Alert and oriented, no gross deficits. Cardiovascular: Regular rate. Pulmonary: Normal respiratory effort. Abdomen: Non-tender, non-distended. rayshawn in place : Light smith urine moderate CBI Labs: Hemoglobin 7.8 from 8.5 Creatinine 1.1 Cultures: No new culture Interval Imaging: CT cystogram demonstrates no evidence of bladder perforation or extravasation. Demonstrates significant clot burden. ASSESSMENT AND PLAN: Mr. Vega is a pleasant 83 y.o. male with urologic history advanced prostate cancer with bone metastases on Xtandi as well as hydronephrosis and a right atrophic kidney managed with indwelling ureteral stent previously managed by outside urologists. 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 On 08/11 he suffered hematuria, clot obstruction, intraperitoneal bladder perforation. At the time he was on both Plavix and Eliquis. He underwent open exploratory laparotomy with cystotomy closure and right-sided ureteral stent exchange on 08/15/23. Postoperative course notable for ileus requiringNG tube placement, DVT of unclear chronicity managed with heparin drip transitioned to home Xareltoand hematuria. He was discharged 08/25. Unfortunately, he presented to local emergency department with worsened hematuria, clot obstructionand we recommended transfer here for management of hematuria, CBI. Last dose of Plavix was 08/29. Last dose of Xarelto was 08/28. We discussed options for management today. Overnight ultrasound showed approximately 5 cm of clot in the bladder. Our team hand irrigated with 3 L as well as catheter technicians continued to irrigate. We are not able to get this volume of clot out. The patient continues to bleed this morning. We elected to obtain CT cystogram to assess volume of clot in the bladder and ensure there was no perforation. Fortunately, this was negative for perforation or extravasation but did show significant volume of clot within the bladder. I had a discussion with the patient, nurse, catheter tech, and son all in the room this morning. I again emphasized the importance of stopping the CBI if the patient's bladder feels full. Can continue gentle hand irrigations with catheter techs. Given CT cystogram findings, we favor taking the patient for cystoscopy with clot evacuation. Regarding this procedure I discussed with the patient and his family risk of infection, worsening bleeding. Also discussed specific risk of bladder perforation. Described that this can be extraperitoneal and managed with a catheter versus intraperitoneal which would require another open incision. They voiced understanding. Regarding the above named procedure, we discussed the risks, benefits, and alternatives, including the risks of bleeding, infection, injury to adjacent structures, failure of the procedure to producethe desired effect, and need for subsequent operations. The general risks associated with surgery and anesthesia including [place], stroke, and VTE were also discussed. Finally, I expalined that there arerare complications that were not specifically mentioned but that are possible as a consequence of this procedure. The patient expressed understanding and wishes to proceed. Questions were answered. 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, home Xarelto (holding since 08/11) --SubQ heparin initiated POD 0 --LE US obtained 5/8 PM due to patient's sustained tachycardia in the 1-2d prior, did show R DVT, unclear if acute or chronic --holding anticoagulation for now # E coli bacteremia -08/12 blood culture positive nunez susceptible E coli -repeat cultures 08/14 were negative -initiating ceftriaxone this hospitalization due to catheter manipulation # antiplatelet therapy -CAD status post cardiac stents -last dose of Plavix 08/29 -we are holding it for now PLAN: OR today for cystoscopy, clot evacuation Holding anticoagulation today, I discussed risks of doing this with the family including cardiac risk, stroke risk. At this point I do feel holding in his indicated given ongoing bleeding requiring transfusion Blood transfusion today for hemoglobin 7.8 Ceftriaxone Hospital Summary: Diet: NPO Activity: Ad kong DVT PPX: Holding GI PPX: None Bowel Regimen: Senna, MiraLax IVF: LR 100 Abx/Microbiology: No new cultures Pain Control: Tylenol, 2.5/5 oxycodone Home Meds Resumed: Enzalutamide, metoprolol, mirabegron, rosuvastatin, trospium Held Home Meds: Plavix, Xarelto Consults: None Signed by: Paula Hernandez M.D. 08/31/2023 10:45 AM CDT Please page the Urology Chief Service with questions or concerns. Pager during business hours: [phone] Pager after hours: [phone] Associated attestation - Mayur Alvarez M.D. - 08/31/2023 12:14 PM CDT I agree with the Urology Chief Service plan for palliative cystoscopy under anesthesia, clot evacuation, proceed as indicated. We will plan for judicious irrigation given his recent bladder surgery and we will perform a cystogram at the end of the procedure. * Demarco Salazar, Mireille.D., R.Ph., [facility] - 08/31/2023 7:19 AM CDT Images from the original note were not included. Pharmacist Progress Note Reason for admission: Transfer from outlying facility due to worsening hematuria and clot-obstructed Jon catheter s/p cystostomy closure and R ureteral stent exchange on 08/15/23 PMH: Advanced prostate CA w/bone metastases (on enzalutamide), hydronephrosis, R atrophic kidney, radiation cystitis/proctitis, anemia, CAD s/p cardiac stents and IVC filter placement in 2017 (on rivaroxaban) OBJECTIVE Home medications: Held: Amlodipine (MAR held due to HoTN), Vit D3, clopidogrel, Co-Q10, rivaroxaban Changed: None Prophylaxis: Holding chemoppx in anticipation of possible surgery ASSESSMENT / PLAN Continuous bladder irrigations ongoing to flush clot burden; continuing to hold rivaroxaban and clopidogrel. NPO until primary service assesses his current clot burden. Pain 0/10 on PRN APAP; has PRN oxycodone available but no doses required yet. Doses reduced to 2.5 & 5 mg given age and current kidney function. Planning to resume enzalutamide today. Continues on IV ceftriaxone 1 g Q24H for surgical prophylaxis. If not proceeding to OR, consider discontinuation of antibiotics. Pedrito Salazar Pharm.D., R.Ph., BCPS Admission Medication History Note Adherence issues: No concerns Medication list source: Care Everywhere or chart review and Pharmacy or dispense records Medication related information: Patient had a recent admission; 08/13 - 08/26/23. three new medications have been added since discharging (bacitracin, cefdinir, and trospium) but the medication list is otherwise unchanged from the prior encounter. Prior to Admission Medications Med List Status: Pharmacy/RN Complete Set By: Demarco Salazar Pharm.D., R.Ph., BCPS at 08/31/2023 7:22 AM Taking? Last Dose Informant Start Date End Date LT amLODIPine (NORVASC) 10 mg tablet 08/30/2023 -- 01/11/20 -- Take 10 mg by mouth daily. bacitracin 500 unit/gram ointment -- -- 08/26/23 -- Apply 1 Application topically 4 (four) times a day as needed (catheter irritaiton). Apply to tip ofpenis as needed for catheter irritation. cefdinir (OMNICEF) 300 mg capsule 08/29/2023 -- 08/26/23 08/31/23 Take 1 capsule (300 mg total) by mouth 2 (two) times a day before breakfast and dinner for 2 days. Then take 1 capsule 2 times a day before breakfast and dinner for 3 days the day before, day of, dayafter catheter removal. cholecalciferol (Vitamin D3) 50 mcg (2,000 Unit) tablet -- -- -- -- Take 50 mcg by mouth daily. clopidogreL (PLAVIX) 75 mg tablet 08/30/2023 -- 12/27/19 -- Take 75 mg by mouth daily. coenzyme Q10 (CO Q-10) 200 mg capsule 08/29/2023 -- -- -- Take 200 mg by mouth daily. enzalutamide (XTANDI) 40 mg capsule 08/30/2023 -- -- -- Take 120 mg by mouth daily. Take with or without food at the same time each day. Swallow it whole. iron,carbonyl-vitamin C (VITRON-C) 65 mg iron- [address] tablet -- -- -- -- Take 65 mg of iron by mouth daily. Do not crush or chew. metoprolol succinate (TOPROL-XL) 50 mg 24 hr tablet 08/29/2023 -- 11/02/19 -- Take 50 mg by mouth daily. mirabegron (MYRBETRIQ) 50 mg 24 hr tablet 08/29/2023 -- -- -- Take 50 mg by mouth daily. nitroglycerin (NITROSTAT) 0.4 mg SL tablet -- -- 11/02/19 -- Place 0.4 mg under the tongue. rosuvastatin (CRESTOR) 40 mg tablet 08/29/2023 -- -- -- Take 40 mg by mouth daily. tamsulosin (FLOMAX) 0.4 mg 24 hr capsule 08/29/2023 -- 06/10/20 -- TAKE 1 CAPSULE(0.4 MG) BY MOUTH DAILY trospium (SANCTURA) 20 mg tablet 08/29/2023 -- 08/26/23 -- Take 1 tablet (20 mg total) by mouth 2 (two) times a day as needed (bladder spasms). please stop 24hours prior to catheter removal Xarelto 10 mg tablet 08/29/2023 -- -- -- Take 10 mg by mouth daily. documented in this encounter H&P Notes * Kimi Vieira M.D., M.S. - 08/31/2023 12:26 AM CDT H&P HISTORY OF PRESENT ILLNESS Mr. Vega is an 83 y.o. male transferred to the [facility] ED for further management of gross hematuria. He is well known to our service. He has a history of advanced prostate cancer with bone metastases on xtandi as well as hydronephrosis and right atrophic kidney managed with right-sided ureteral stent with local urologist. 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 He is on Plavix (CAD status post cardiac stents in 2016) and Xarelto (history of DVT in 2019 status post IVC filter). He developed hematuria with clot retention on 08/11, and was admitted to local hospital for CBI. He was then transferred to [facility] on 08/12; a CT cystogram was performed which identified a bladder dome intraperitoneal perforation, for which he underwent open cystotomy closure and right ureteral stent exchange on 08/15/2023. Post-operative course was complicated by ileus and SBO requiring NG tube placement, DVT of indeterminate chronicity, and gross hematuria. He tells me he developed worsening hematuria (thin, merlot) on 08/28, accompanied by increased bladder spasms; he underwent hand irrigation and was discharged home. He then re-presented locally on 08/29 due to concerns for ongoing hematuria and nondraining Jon catheter. A 22Fr 3-way Jon catheter was placed with return of significant clot, per report. Local labs notable for hemoglobin 9.7 from 10.6. Creatinine at the patient's baseline 1.1. He was initiated on CBI and transferred to [facility] for further management. On my initial evaluation 08/29 pm, Jon catheter had clotted off; I personally irrigated with 3L ofnormal saline, with return of some clot, although catheter continue to be somewhat positional. Patient was reconnected on CBI, and a urinary bladder ultrasound was obtained showing approximately 5 cmclot burden within the bladder. Hemoglobin 8.5. Upon reevaluation at 11 pm; I again hand irrigated with 1L normal saline. 22Fr 3-way catheter did clot off during hand irrigations; catheter upsized to 24Fr Alcock and patient reconnected to CBI, with return of light peach urine on fast rate. PMH: --history of DVT status post IVC filter, home Xarelto -CAD status post cardiac stents in 2017, on Plavix -hydronephrosis and atrophic right kidney managed with indwelling double-J stent (exchanged at timeof surgery 08/14) SURGICAL HISTORY Exploratory laparotomy for bladder repair, right ureteral stent exchange 08/14 Multiple prior GI procedures for radiation proctitis SOCIAL HISTORY Lives in [place], [place] OBJECTIVE Vitals Blood pressure 134/84, pulse 102, temperature 36.9 ??C, resp. rate 23, height 180.3 cm, SpO2 99%. Body mass index is 28.41 kg/m??. Physical Exam General: Lying in bed, comfortable appearing Eyes: Sclera nonicteric Skin: Not jaundiced Chest: Nonlabored breathing on room air Abdomen: Soft, nondistended, rayshawn in place on infrapubic incision, suprapubic area soft, non-tender : Jon catheter in place Neurologic: Interacting, mentating well Psychiatric: Appropriate mood and affect Labs: Recent Results (from the past 24 hour(s)) CBC with Differential, Blood Collection Time: 08/30/23 9:49 PM Result Value Hemoglobin 8.5 (L) Hematocrit 27.4 (L) Erythrocytes 3.06 (L) MCV 89.5 RBC Distrib Width 16.7 (H) Platelet Count 323 (H) Leukocytes 13.0 (H) Neutrophils 12.54 (H) Lymphocytes 0.17 (L) Monocytes 0.31 Eosinophils <0.03 Basophils <0.03 Basic Metabolic Panel Collection Time: 08/30/23 9:49 PM Result Value Potassium, P 3.6 Sodium, P 140 Chloride, P 109 (H) Bicarbonate, P 21 (L) Anion Gap, P 10 BUN (Blood Urea Nitrogen), P 16 Creatinine 1.18 Estimated GFR (eGFR) 61 Calcium, Total, P 8.0 (L) Glucose, P 127 Lactate Collection Time: 08/30/23 9:50 PM Result Value Lactate, P 1.8 Type and Screen (with Reflex Antibody ID) Collection Time: 08/30/23 9:50 PM Result Value ABORh O Pos Antibody Screen Negative Type & Screen Expiration 09/02/2023 23:59 Testing Location [place] Imagin08/30/23 EXAM: US URINARY BLADDER COMPARISON: CT abdomen and pelvis 08/22/2023 IMPRESSION: There is a large clot burden surrounding the bladder. The largest clot measures 4.9 x 3.8 x 4.7 cm and does not appear to have internal vascularity. ASSESSMENT / PLAN #1 Gross hematuria, secondary to radiation cystitis #2 S/p exploratory laparotomy and bladder repair of intraperitoneal bladder perforation #3 Metastatic prostate cancer Mr. Vega is a 83 y.o. male with urologic history advanced prostate cancer with bone metastases on Xtandi as well as hydronephrosis and a right atrophic kidney managed with indwelling ureteral stent previously managed by outside urologists. 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 On 08/11 he suffered hematuria, clot obstruction, intraperitoneal bladder perforation. At the time he was on both Plavix and Eliquis. He underwent open exploratory laparotomy with cystotomy closure and right-sided ureteral stent exchange on 08/15/23. Postoperative course notable for ileus requiringNG tube placement, DVT of unclear chronicity managed with heparin drip transitioned to home Xareltoand hematuria. He was discharged 08/25. Unfortunately, he presented to local emergency department on 08/29 with worsened hematuria, clot obstruction and was transferred to [facility] for further evaluation and management. Urinary bladder ultrasound showing 5 cm clot burden; catheter draining on fast-rate CBI after multiple rounds of hand irrigation. Plan - Continue CBI - Q2h hr hand irrigations - NPO overnight pending am re-evaluation - Hold Plavix, Xarelto for now The above was discussed with Drs. Venegas and Lefty, the chief urology residents specialty person. Please page chief Urology Service [place] [phone] [place] [phone] afterhours. documented in this encounter Procedure Notes * Leonardo Kellogg R.N. - 08/30/2023 8:00 PM CDT Procedures documented in this encounter Consult Notes * Kelvin Dunlap M.B.BJonahS., M.P.H. - 09/01/2023 6:54 AM CDTAssociated Order(s): IP CONSULT TO HYPERBARIC MEDICINE SUBJECTIVE CHIEF COMPLAINT / REASON FOR VISIT Consult for hyperbaric therapy Clinical Status:inpatient Referring Provider: Sima Venegas M.D. HISTORY OF PRESENT ILLNESS HBO CONSULT: Referral Indication: Radionecrosis (soft tissue) Radiation cystitis with hematuria Reason for consult: -pt w hx radiation for prostate cancer, hematuria c/b bladder perforation s/p repair 08/14, readmitted with hematuria s/p clot evacuation 08/31. consideration of HBOT. Mr. Vega is a 83-year-old gentleman with a past medical history of metastatic prostate cancer, status post radiation therapy, multiple procedures, on androgen deprivation therapy. 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 No scuba diving experience. Electronic health record shows initial symptoms and diagnosis of prostate cancer in late February 2020. Androgen deprivation therapy and radiation therapy we pursued. He has documented radiation therapy of 6000 cGy to prostate and seminal vesicle, 5500 cGy to sacrumand right pelvic sidewall and dose of 4400 cGy to pelvic vessels, spanning March. A summary note from Radiation Oncology dated 04/28/2020 was reviewed. Subsequently, he had evidence of radiation proctitis, and hematuria attributed to radiation cystitis. Current hospitalization was precipitated by another episode of gross hematuria. He has chronic anemia, secondary to chronic blood loss due to radiation cystitis, radiation proctitis while on Plavix and Xarelto due to coronary artery disease requiring stents and history of deep vein thrombosis in spite of IVC filter placement. He has a multiple flexible sigmoidoscopy for management of radiation proctitis and associated bleeding. Last cardiac evaluation, completed in November of 2019 shows negative stress echo for ischemia, with an estimated ejection fraction of 65-70%. Most recent chest x-ray, August 30, 2023 patchy opacities noted in lower lungs. Medical history is also significant for anticoagulation, for history of DVT and coronary artery disease. Review of Systems: Pulmonary: Radiologic pulmonary lesions Pacemaker dependent: Coronary artery disease, status post multiple stent. The following portions of the patient's history were reviewed and updated as appropriate: allergies, current medications, family history, medical history, social history, surgical history, and problem list. OBJECTIVE Vitals: 08/31/23 1800 08/31/23 19008/31/23199908/31/23 2240 BP: 149/65 132/66 131/75 131/64 Patient Position: Semi-recumbent Semi-recumbent Semi-recumbent Semi-recumbent Pulse: 84 80 77 79 Heart Rate: Temp: 36.5 ??C 36.8 ??C Resp: 16 14 Height: SpO2: 98% 98% 98% 99% TempSrc: Oral Oral Pain Score: 0 - No pain 0 - No pain Physical Exam: General Appearance/Mental Status: Normal Skin: Normal Eyes: Normal Nose/Throat: Normal Peripheral Vascular: Normal Heart: Normal Lungs: Normal LEFT Tympanic Membrane: Normal - intact with normal landmarks and light reflex RIGHT Tympanic Membrane: Normal - intact with normal landmarks and light reflex ASSESSMENT / PLAN HBO ASSESSMENT/PLAN: Is HBO treatment indicated?: Yes Treatment indication:: radionecrosis (soft tissue) #1 Personal history prostate cancer, diagnosed 2019 #2 Documented radiation therapy of 6000 cGy to prostatic fossa, completed April of 2020 #3 Hematuria and hematochezia, attributed to radiation induced changes #4 Patchy lung opacities on imaging -radiation cystitis with associated hematuria, and radiation proctitis with the associated bleedingis an indication for hyperbaric oxygen therapy. It is a well covered indication, and I do not anticipate any insurance issues. -we typically treat for the chronic effects of Hyperbaric oxygen therapy, usually as an outpatient.Immediate treatment will not affect the bleeding, and we usually see helpful effect only after 15-20 treatments. -I would recommend Hyperbaric oxygen therapy be initiated as outpatient. Would recommend 40 treatments, 2 atmosphere pressure, Tuesday through Tuesday, once daily, 90 minutes, 100% FiO2 -if patient is anticipated to have a prolonged inpatient stay, would request transfer to [facility] prior to initiation of hyperbaric oxygen therapy. -most recent chest imaging showed some patchy infiltrates in the lung. This may be due to fluid overload. Recommend repeat chest x-ray prior to Hyperbaric oxygen therapy sessions to ensure this is cleared. I discussed with the patient the details of HBOT therapy including time commitment, insurance issues, transportation, adverse effects (ear symptoms, fire, seizures) and gave him patient education material. The patient does not have relevant conditions such as seizure disorder, history of pneumothorax, decompensated heart failure, diabetes, claustrophobia, and history of chronic ear problems. The patient has implanted devices. Of note, hyperbaric oxygen therapy has not been thought to potentiate neoplasm after extensive literature review and consensus evaluations. THERAPY PLAN: No therapy plan of the specified type found. HBO TREATMENT BENEFITS - Radionecrosis (Soft Tissue): The known physical and physiologic effects of hyperbaric oxygen therapy (HBOT) in this clinical situation are expected to achieve the following clinical benefits; 1) re-establish wound tissue oxygen gradients, thereby stimulating angiogenesis within areas of radiation - induced obliterative endarteritis, and 2) provide a competent vascular foundation in order to support reconstructive procedures.The overall expected outcome is to improve healing, functionality, and success of any necessary surgical reconstruction. Treatment Profile:HBOT-2: 2 NICHELLE for 90 minutes (One 5min air break) HBO Risk Management Plan:Standard precautions * Carmen Louis, R.N. - 08/31/2023 9:45 AM CDTAssociated Order(s): IP CONSULT TO CARE MANAGEMENT Discharge Planning Assessment SUBJECTIVE Assessment Information Referral Source: Early Screen for Discharge Planning [facility] Reason: Discharge Planning Primary Language: Estonian [employer] Used: No Person(s) present during interview: Person(s) Present During Interview: patient and child Kar History of Present Illness #1 Hematuria Social History Support System: spouse, children, and home care staff Primary Caregiver: self and family Finance/Insurance Primary insurance: MEDICARE A AND B Secondary insurance: MEDICA benefits: No Advance Directives Legal Decision Maker: Self Advance Directives: N/A Advance Directives Status: N/A OBJECTIVE Baseline Functional Status Baseline Activities of Daily Living Mobility: Requires aide of device Dressing: Independent Feeding: Independent Bathing: Independent Grooming: Independent Toileting: Independent Behavior: Appropriate, Pleasant, Calm, Cooperative, Oriented Communication: Can write, Talks, Understands speaking, Understands Estonian, Reads Shopping: Needs assistance Medication Management: Independent Housekeeping: Needs assistance Meal Prep: Independent Assistive Devices: Walker - front wheeled, Eyeglasses, Hearing aid(s) Agency Name: [facility] Provided: Long-Term/PT/OT Transportation: Support from family Baseline Services/Resources Primary care clinic and provider: ELSEWHERE, PCP Additional Resources: N/A Anticipated Needs Functional Status: Housekeeping, Shopping, Transportation use (drive car, use taxi/bus), Mobility, Transfer to/from bed, chair, etc., Bathing Assistive Devices: Eyeglasses, Hearing aid(s), Walker - front wheeled Services/Resources: Home health Agency Name: [facility] Provided: Long-Term/PT/OT Anticipated Modifications to the Patient's Home: None Transportation Needs: Support from family Does the patient need discharge transport arranged?: No Anticipated Discharge Destination: [place] [facility] [place] / PLAN Assessment: The rn internal medicine met with Kalen Vega to discuss his current hospitalization and home goingneeds. The patient was accompanied by son, Kar . The patient was a reliable historian. The role ofRN Service Desk Technician was reviewed. The patient reviewed his prior level of care and support system. The patient receives support from his and children. The patient described his living environment as a home with bedroom and bathroom on same floor withstairs to enter with rails. Housekeeping, grocery shopping, meal prep, and other household responsibilities have previously been completed by patient and patient's son. rn internal medicine discussed the patient's potential needs at dismissal based on their home setting, previous needs and responsibilities, homebound status, and relevant assessments with the patient. The patient will be safe and supported to return home with [facility] or previous services noted above when medically ready. Support will be provided by his family. The patient demonstrated understanding when discussing his home going plans and anticipated needs. Patient lives with his , Hanane, and their son, Gavin. Patient has two steps into the home anddoes not go into the basement. Patient's has Parkinson's Disease so they have round the clock care for his . Patient's children (Gavin, Kar and Mindy) all assist with cares and needs and his has [facility]. Patient stated that [facility] was supposed to be set- up at discharge after the last hospital stay but that the company never received orders to start care and that he was told by nursing that due to his PICC removal he would not need care. Service Desk Technician will clarifywith home health team regarding if orders were placed and where the communication breakdown occurred. Patient still has urinary catheter care needs and PT/OT needs so would still qualify for home health care assistance. Patient's son plans to provide transportation at discharge. Qualifications for home care were discussed. Potential skilled needs are general nursing assessmentand PT/OT. Patient is homebound so would qualify for home care services. At this time, the care team anticipates the patient will potentially require the following new service(s) to be set up: home healthcare. After reviewing the patient's chart and meeting with the patient, the rn internal medicine deemed the LACE+/readmission questions were appropriate. The patient explained that his current admission was dueto inability to urinate.The patient stated that he had no difficulty obtaining, understanding, or using his medications as directed. The patient reports no other concerns regarding his medications. Aprimary care provider has been identified; patient stated he did not set up a PCP appointment at discharge The patient stated his current readmission could have been prevented. The rn internal medicine will share this information with the care team. The patient reports understanding that he will dismiss from the hospital when medically stable. Thefollowing potential barriers to dismissal have been identified: Home Health Care Addendum 1230: Service Desk Technician called [facility]. They received the referral but declined due to being at capacity. Plan: The patient agrees with the following plan. Patient's anticipated discharge disposition is: Home with Home Healthcare Referrals sent. Transportation upon dismissal will be provided by family--Kar . rn internal medicine recommended home health services. rn internal medicine provided information regarding the dismissal process and the Senior Linkage Line ([place] Board on Aging) handout. rn internal medicine placed or requested the following hospital-based consult orders and/or referrals: None. rn internal medicine will follow up with the patient to provide a list of available home healthcare options in the geographic area where the patient resides and/or requests. [Disclaimers: If applicable, financial disclosures will be provided informing the patient of any ownership and financial relationships. Current insurance coverage will be reviewed with the patient in order to provide in- network options as appropriate.] A progress note with updates and/or transition plan to come. rn internal medicine encouraged the patient to reach out with any questions/concerns. Care Management will continue to follow. Signed by: Carmen Louis R.N. 08/31/2023 documented in this encounter OR Notes * Op Note - Sima Venegas M.D. - 08/31/2023 1:07 PM CDT Pre-op Diagnosis Hematuria Post-op Diagnosis Hematuria [place] A first assist actively participated and was necessary for one or more of the following: opening, exposure and visualization during the case, maintaining hemostasis, wound closure resulting in itssafe and expeditious completion. Findings As expected. Complications None Operative Note Narrative FINDINGS: 1. Cystoscopy demonstrated approximately 5 cm of fibrinous and well formed intravesicular clot burden. Diffuse radiation cystitis with friable and bleeding urothelial mucosa. Well healing incision from prior cystotomy repair with no evidence of active bleeding. 2. Evacuation of all clot burden 3. Fulguration of multiple aberrant blood vessels and multiple areas of active bleeding throughout the bladder. Total fulgurated area estimated to be approximately 4-6 cm. No active bleeding at conclusion of procedure, but due to the diffuse nature of patient's radiation cystitis and mucosal friability, I believe he is at quite high-risk for recurrent episodes of bleeding. 4. Cystogram negative for contrast extravasation or filling defects. 5. Placement of [address] catheter with 20 cc in the balloon. PROCEDURE: After appropriate patient identification and verification of informed consent, the patient was brought into the OR and placed under general anesthesia. The patient was then prepped and draped in the standard sterile fashion in the dorsal lithotomy position. After surgical pause and confirmation of antibiotic administration, we proceeded with a rigid cystoscopy. The anterior urethra was slightly edematous and irritated consistent with chronic catheterization. The sphincter coapted appropriately.The prostatic urethra was mildly obstructing in nature. The bladder was entered and approximately 5cm of fibrinous and well formed intravesicular clot burden was immediately encountered. A stent wasnoted to be emanating from the right ureteral orifice with no evidence of encrustation. Utilizing amultitude of techniques including grasping and direct removal, resection with the loop and eleck, all intravesicular clot burden was able to be removed. Bladder was then further evaluated which demonstrated diffuse radiation cystitis with friable and bleeding urothelial mucosa. Well healing incision from prior cystotomy repair with no evidence of active bleeding. We then proceeded to systematically examined all portions of the bladder and fulgurate any areas of noted active bleeding or aberrantvasculature which appeared to be at high risk of bleeding. Total fulgurated region was approximately 4-6 cm. Bladder was emptied and refilled multiple times to evaluate for areas of ongoing bleeding.At the conclusion of the procedure, there was no evidence of significant active bleeding, but due to the diffuse nature of patient's radiation cystitis and mucosal friability, I believe he is at quite high risk for recurrent bleeding episodes. The resectoscope was removed and a [address] catheter was placed with 20 cc in the balloon. Acystogram was then performed by injecting a combination of saline and Omnicef. The bladder was filled to approximately 300 cc. Cystogram demonstrated appropriate position of indwelling Jon catheter, as well as evidence of right ureteral stent. Cystogram also noted bladder wall trabeculation with no evidence of contrast extravasation or filling defects. Bladder was subsequently drained and catheter was reconnected to continuous bladder irrigation. Patient was awoken from anesthesia and transferred to the recovery room in stable condition. PLAN: - Return to floor care - Continuous bladder irrigation. I would recommend moderate to high rate CBI for at least 12 hours postoperatively to prevent recurrent clot formation. Sima Venegas M.D. documented in this encounter ED Notes * Kirstin Hughes M.D. - 08/30/2023 9:47 PM CDT SUBJECTIVE CHIEF COMPLAINT/REASON FOR VISIT Urinary Problem and Rapid Heart Rate HISTORY OF PRESENT ILLNESS REVIEW OF SYSTEMS OBJECTIVE Initial Vitals Temperature 08/30/231947 37.1 ??C Pulse Rate 08/30/231944 (!) 145 Heart Rate 08/30/231944 (!) 144 Resp Rate 08/30/231944 (!) 26 Blood Pressure 08/30/231944 133/73 SpO2 08/30/231944 97 % Pain Score 08/30/231947 0 - No pain PHYSICAL EXAMINATION ASSESSMENT/PLAN This an 83-year-old gentleman who was supposed to be a direct admission in the setting of worseninghematuria not responsive to continue bladder irrigation secondary to clot retention. 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 On arrival to our emergency department the patient had obstruction of the Jon catheter. He was also tachycardic to 145 with sinus tachycardia. He had not taken his beta blockade. We considered other potential causes for his tachycardia. Therefore laboratory workup was obtained. The patient has had a hemoglobin drop in the setting of anticoagulation and hematuria. He does not meet indication at this point in time for transfusion. We considered infectious causes the patient does have a leukocytosis to 13. His lactate is normal he isafebrile. There also appears to be signs of dehydration. Patient was given 1 L of fluid resuscitation and was given his home oral metoprolol. With this the patient has had improvement in his sinus tachycardia and currently has a heart rate of 103. I do think he is stable for admission to the floor. I do not see an indication for antibiotic intervention at this point in time. Patient will be admitted to the urology service. Final Diagnoses: as of 08/30/232146 Hematuria Tachycardia I discussed the management of the patient with: urology. I have personally seen and examined this patient. I have fully participated in the care of this patient. I have reviewed all clinical information including history, physical exam, orders, and plan. Kat with the note of the resident. Kirstin Hughes M.D. 09/01/23 0842 * Shannan Correa D.O., M.H.A. 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 He was concerned his catheter had clotted off. They initially placed a 3 way and were able to aspirate asignificant clot. His catheter is not draining and they started CBI just prior to transfer and found his urine to be pink lemonade. However in route, at some point the CBI was clotted off. He denies any symptoms at this time. He does note he forgot to take his home metoprolol this morning, which he believes is why is heart rate is so elevated. REVIEW OF SYSTEMS See HPI OBJECTIVE Initial Vitals Temperature 08/30/231947 37.1 ??C Pulse Rate 08/30/231944 (!) 145 Heart Rate 08/30/231944 (!) 144 Resp Rate 08/30/231944 (!) 26 Blood Pressure 08/30/231944 133/73 SpO2 08/30/231944 97 % Pain Score 08/30/231947 0 - No pain PHYSICAL EXAMINATION Constitutional: Vitals reviewed. No distress. Cardiovascular: Tachycardia present. Pulmonary/Chest: Effort normal and breath sounds normal. Abdominal: Soft. exhibits no distension. There is no abdominal tenderness. Genitourinary: Genitourinary Comments: Jon catheter in place with thick, red drainage from catheter that is slow to drain, likely secondary to clots Neurological: Alert and oriented to person, place, and time. Skin: He is not diaphoretic. ASSESSMENT/PLAN Assessment and Plan Kalen Vega is an 83-year-old male with prostate cancer with secondary radiation cystitis complicated by recent bladder perforation presenting today from an outside hospital with concerns for hematuria and clotted off catheter. Upon presentation, patient is hemodynamically stable and in no acute distress. Physical exam is remarkable for heart with a tachycardic rate, lungs clear auscultationbilaterally, no abdominal tenderness palpation. Urinary catheter has thick red drainage that is very slow and I am concerned there are clots in the bladder. We will discuss with urology. We will additionally obtain a urinary bladder ultrasound. Regarding his tachycardia, we will give his home metoprolol edema this morning. Will also obtain basic labs, chest x-ray, and EKG. We will give a small 500 cc fluid bolus and reassess. Please see ED course for remainder of patient workup. . I reviewed the following external records: outside ED records. ED Course as of 08/30/232209 Tue August 30, 2023 2141 Urinary Bladder There is a large clot burden surrounding the bladder. The largest clot measures 4.9 x 3.8 x 4.7 cm and does not appear to have internal vascularity 2147 DX Chest AP or PA and Lateral 2 Views No pneumonia or pneumothorax 2147 Pulse Rate: 110 Heart rate has improved with home metoprolol and 500cc fluid. Will give another 500cc fluids. 2208 Hemoglobin(!): 8.5 Does not meet transfusion threshold. Patient is safe to be admitted to Urology. Final Diagnoses: as of 08/30/232209 Hematuria Tachycardia My ECG interpretation is documented in ED Course. My Plain [employer] interpretation is documented in ED Course. I discussed the management of the patient with: Urology. Shannan Correa D.O., M.H.A. Resident 08/30/232209 * Chelsea Argueta R.N. - 08/30/2023 8:48 AM CDT Pt transferred from [facility] via EMS, pt c/o blocked jon cath that started today. Pt had a right uretal stent exchange and an open bladder repair 08/15/23 and was discharged 08/25. Pt had a3 way jon placed at [facility], and transferred here because the clots returned. Chelsea Argueta R.N. 08/30/232027 documented in this encounter Plan of Treatment Upcoming Encounters Date Type Department Care Team (Late st Contact Info) Description 09/07/2023 11:00 AM CDT Procedure visit Department of Urology in [place], [place] [address] [place] [address] Sima Venegas M.D. [address] [place] [address] Pending Results Name Type Priority Associated Diagnoses Date /Time Prepare Red Blood Cells, 1 Units Blood Bank Routine 08/30/2023 9:50 PM CDT Scheduled Orders Name Type Priority Associated Diagnoses Order Schedule Adult Oxygen Therapy Continuous (RT) Respiratory Care Routine respiratory use [id number] reminder at 8am and 8pm until discontinued starting 08/30/2023, 6 completed CBC without Differential Lab Routine Daily for 7 Days starting 09/02/2023 until 09/08/2023, 2 completed Heparin Anti-Xa Assay Lab Routine AM collection: 0405 (default) for 1 Occurrences starting 09/04/2023 until 09/04/2023 documented as of this encounter Procedures The patient is currently admitted. The information in this section might not be complete until the patient is discharged. Procedure Name Priority Date/Time Associated Diagnosis Comments HEPARIN LEVEL ANTI-XA ASSAY, P Timed 09/03/2023 3:29 AM CDT CBC WITHOUT DIFFERENTIAL, B Timed 09/03/2023 3:29 AM CDT HEPARIN LEVEL ANTI-XA ASSAY, P Timed 09/02/2023 2:57 AM CDT CBC WITHOUT DIFFERENTIAL, B Routine 09/01/2023 8:16 PM CDT ADULT OXYGEN THERAPY Routine 09/01/2023 8:00 PM CDT HEPARIN LEVEL ANTI-XA ASSAY, P Timed 09/01/2023 6:50 PM CDT ACTIVATED PARTIAL THROMBOPLASTIN TIME (APTT), P STAT 09/01/2023 9:05 AM CDT CBC WITHOUT DIFFERENTIAL, B Routine 08/31/2023 9:36 PM CDT BASIC METABOLIC PANEL, S/P Routine 08/31/2023 9:36 PM CDT ADULT OXYGEN THERAPY Routine 08/31/2023 8:00 PM CDT FL FLUORO LESS THAN 1 HOUR RAD - Routine (most inpatients and all outpatients) 08/31/2023 2:12 PM CDT CYSTOSCOPY CYSTOGRAM VOIDING 08/31/2023 12:17 [...] LACTATE, B/P STAT 08/30/2023 9:50 PM CDT CBC WITH DIFFERENTIAL, B STAT 08/30/2023 9:49 PM CDT BASIC METABOLIC PANEL, S/P STAT 08/30/2023 9:49 PM CDT DX CHEST AP OR PA AND LATERAL 2 VIEWS RAD - Semiurgent (Fast; most ED patients; some inpatients) 08/30/2023 9:29 PM CDT US URINARY BLADDER RAD - Semiurgent (Fast; most ED patients; some inpatients) 08/30/2023 9:14 PM CDT ECG STAT 08/30/2023 7:44 PM CDT documented in this encounter Results * Heparin Anti-Xa Assay (09/03/2023 3:29 AM CDT) Pathologist [facility] Heparin Anti-Xa, P 0.26 IU/mL 2023 4:07 [...] Alvarez M.D. LAB BLOOD NON A DD-ON [facility] [address] [place] [address], [facility] [address] [place] [address] * (ABNORMAL) CBC without Differential (09/03/2023 3:29 AM CDT) [facility] Hemoglobin 8.0(L) 13.2 - 16.6 g/dL 09/03/2023 [...] M.D. LAB BLOOD ADD-ON Performing Organization Address [facility] Co de Phone Number [facility] [address] [place] [address], [facility] [address] [place] [address] * Heparin Anti-Xa Assay (09/02/2023 2:57 AM CDT) Heparin Anti-Xa, P 0.24 IU/mL 2023 4:09 AM CDT DTL Comment: [...] or unfractionated heparin (UFH). Blood (Blood, Venous) 09/02/2023 2:57 AM CDT 09/02/2023 3:42 AM CDT Narrative Authorizing Provider Result Abdifatah Alvarez M.D. LAB BLOOD NON A DD-ON Performing Organization Address [facility] Co de Phone Number [facility] [address] [place] [address], [facility] [address] [place] [address] * (ABNORMAL) CBC without Differential (09/01/2023 8:16 PM CDT) Hemoglobin 8.5(L) 13.2 - 16.6 g/dL 09/01/2023 8:45 PM CDT DTL Hematocrit 26.3(L) 38.3 - 48.6 % 09/01/2023 8:45 PM CDT DTL Erythrocytes 2.90(L) 4.35 - 5.65 x10(12)/L 09/01/2023 8:45 PM CDT DTL MCV 90.7 78.2 - 97.9 fL 09/01/2023 8:45 PM CDT DTL RBC Distrib Width 16.3(H) 11.8 - 14.5 % 09/01/2023 8:45 PM CDT DTL Platelet Count 262 135 - 317 x10(9)/L 09/01/2023 8:45 PM CDT DTL Leukocytes 9.6 3.4 - 9.6 x10(9)/L 09/01/2023 8:45 PM CDT DTL Blood (Blood, Venous) 09/01/2023 8:16 PM CDT 09/01/2023 8:39 PM CDT Paula Hernandez M.D. LAB BLOOD ADD-ON Performing Organization Address [facility]/ZIP Co de Phone Number [facility] [address] [place] [address], [facility] [place] [address] * Heparin Anti-Xa Assay (09/01/2023 6:50 PM CDT) Heparin Anti-Xa, P 0.35 IU/mL 2023 7:47 PM CDT DTL Comment: UFH therapeutic range: [...] or unfractionated heparin (UFH). Blood (Blood, Venous) 09/01/2023 6:50 PM CDT 09/01/2023 7:23 PM CDT Mayur Alvarez M.D. LAB BLOOD NON A DD-ON Performing Organization Address [facility]/ZIP Co de Phone Number [facility] [address] [place] [address], [facility] DTL [facility] [address] [place] [address] * APTT (Activated Partial Thromboplastin Time) (09/01/2023 9:05 AM CDT) Pathologist [facility] Activated Partial Thrombopl Time, P 28 25 - 37 sec 09/01/2023 9:35 AM CDT STMA Blood (Blood, Venous) 09/01/2023 9:05 AM CDT 09/01/2023 9:21 AM CDT Paula Hernandez M.D. LAB BLOOD ADD-ON [facility] [address] [place] [address], [facility] STMA [facility] [address] [place] [address] * (ABNORMAL) Basic Metabolic Panel (08/31/2023 9:36 PM CDT) [facility] Potassium, S 4.0 3.6 - 5.2 mmol/L [...] M.D. LAB BLOOD ADD-ON Performing Organization Address City/[facility]/ZIP Co de Phone Number [facility] [address] [place], [place] [phone] [place] [address] DTL [facility] [address] [place] [address] * (ABNORMAL) CBC without Differential (08/31/2023 9:36 PM CDT) Hemoglobin 8.6(L) 13.2 - 16.6 g/dL 08/31/2023 10:04 PM CDT DTL Hematocrit 26.9(L) 38.3 - 48.6 % 08/31/2023 10:04 PM CDT DTL Erythrocytes 2.97(L) 4.35 - 5.65 x10(12)/L 08/31/2023 10:04 PM CDT DTL MCV 90.6 78.2 - 97.9 fL 08/31/2023 10:04 PM CDT DTL RBC Distrib Width 16.4(H) 11.8 - 14.5 % 08/31/2023 10:04 PM CDT DTL Platelet Count 271 135 - 317 x10(9)/L 08/31/2023 10:04 PM CDT DTL Leukocytes 9.3 3.4 - 9.6 x10(9)/L 08/31/2023 10:04 PM CDT DTL Blood (Blood, Venous) 08/31/2023 9:36 PM CDT 08/31/2023 9:58 PM CDT Paula Hernandez M.D. LAB BLOOD ADD-ON [facility] [address] [place] [address], [facility] DTL [facility] [address] [place] [address] * FL Fluoro Less Than 1 Hour (08/31/2023 2:12 PM CDT) Narrative 152 HOS LOS RST - 08/31/2023 2:13 PM CDT This exam does not require a radiologist review or interpretation. Please refer to the patient's medical record on this date for clinical details. Mayur Alvarez M.D. IMG FLUOROSCOPY PROCEDURES 152 HOS LOS RST * Transfuse Red Blood Cells : (08/31/2023 12:12 PM CDT) Paula Hernandez M.D. BLOOD TRANSFUSION OR DERABLES * Transfuse Red Blood Cells : , 1 Units (08/31/2023 12:12 PM CDT) Paula Hernandez M.D. BLOOD TRANSFUSION OR DERABLES * CT Cystogram without IV Contrast (08/31/2023 11:03 AM CDT) Anatomical Region Laterality Modality Abdomen, [...] performed, with 300 mL of contrast instilled. Jon catheter in urinary bladder. Partially visualized right [...] was performed, with 300 mL of contrast instilled.Jon catheter in urinary bladder. Partially visualized right [...] * (ABNORMAL) Hemoglobin (08/31/2023 4:21 AM CDT) Hemoglobin 7.8(L) 13.2 - 16.6 g/dL 08/31/2023 4:47 AM CDT DTL Blood (Blood, Venous) 08/31/2023 4:21 AM CDT 08/31/2023 4:35 AM CDT Kimi Vieira M.D., M.S. LAB BLOO D ADD-ON [facility] [address] [place] [address], [facility] [address] [place] [address] * Type and Screen (with Reflex Antibody ID) (08/30/2023 9:50 PM CDT) ABORh O Pos Not applicable 08/30/2023 10:17 PM CDT STRM Antibody Screen Negative Negative 08/30/2023 10:31 PM CDT STRM Type & Screen Expiration 09/02/2023 23:59 08/30/2023 10:17 PM CDT STRM Testing Location Marcio DEFAULT 08/30/2023 9:58 PM CDT STRM Blood (Blood, Venous) 08/30/2023 9:50 PM CDT 08/30/2023 9:58 PM CDT Shannan Correa D.O., M.H.A. LAB BLOOD BANK TEST ORDERABLES Performing Organization Address [facility]/ZIP Co de Phone Number [facility] [address] [place] [address], [facility] STRM [facility] [address] [place] [address] * Lactate (08/30/2023 9:50 PM CDT) Lactate, P 1.8 0.5 - 2.2 mmol/L 08/30/2023 10:09 PM CDT STMA Blood (Blood, Venous) 08/30/2023 9:50 PM CDT 08/30/2023 9:55 PM CDT Shannan Correa D.O., M.H.A. LAB BLOOD NON ADD-ON Performing Organization Address [facility] Co de Phone Number [facility] [address] [place] [address], [facility] [address] [place] [address] * (ABNORMAL) Basic Metabolic Panel (08/30/2023 9:49 PM CDT) Potassium, P 3.6 3.6 - 5.2 mmol/L 08/30/2023 10:12 PM CDT STMA Sodium, P 140 135 - 145 mmol/L 08/30/2023 10:12 PM CDT STMA Chloride, P 109(H) 98 - 107 mmol/L 08/30/2023 10:12 PM CDT STMA Bicarbonate, P 21(L) 22 - 29 mmol/L 08/30/2023 10:12 PM CDT STMA Anion Gap, P 10 7 - 15 08/30/2023 10:12 PM CDT STMA BUN (Blood Urea Nitrogen), P 16 8 - 24 mg/dL 08/30/2023 10:12 PM CDT STMA Creatinine 1.18 0.74 - 1.35 mg/dL 08/30/2023 10:12 PM CDT STMA Estimated GFR (eGFR) 61 >=60 mL/min/BSA 08/30/2023 10:12 PM CDT STMA Comment: Estimated GFR calculated using the 2020 CKD_EPI creatinine equation. Calcium, Total, P 8.0(L) 8.8 - 10.2 mg/dL 08/30/2023 10:12 PM CDT STMA Glucose, P 127 70 - 140 mg/dL 08/30/2023 10:12 PM CDT STMA Blood (Blood, Venous) 08/30/2023 9:49 PM CDT 08/30/2023 9:55 PM CDT Shannan Correa D.O., M.H.A. LAB BLOOD ADD- ON [facility] [address] [place] [address], [facility] [address] [place] [address] * (ABNORMAL) CBC with Differential, Blood (08/30/2023 9:49 PM CDT) Hemoglobin 8.5(L) 13.2 - 16.6 g/dL 08/30/2023 [...] Correa D.O., M.H.A. LAB BLOOD ADD- ON [facility] [address] [place] [address], [facility] STMA [facility] [address] [place] [address] DHPM [facility] [address] [place] [address] * DX Chest AP or PA and [...] angle. Coronary stenting.Degenerative changes thoracic spine. Shannan Correa D.O., M.H.A. IMG DIAGNOSTIC IMAGING PROCEDURES * US [...] not appear to have internal vascularity. Indwelling Jon catheter. Narrative 08/31/2023 8:26 AM CDT EXAM: US URINARY BLADDER COMPARISON: CT abdomen and pelvis 08/22/2023 Procedure Note Neftaly Rascon M.D. - 08/31/2023 EXAM: US URINARY BLADDER COMPARISON: CT abdomen and pelvis 08/22/2023 IMPRESSION: There is a large clot burden within the contracted urinary bladder. Thelargest clot measures 4.9 x 3.8 x 4.7 cm and does not appear to haveinternal vascularity. Indwelling Jon catheter. Shannan Srinivasan.Alice, M.H.A. IMG US PROCEDU RES * ECG 12 Lead (08/30/2023 7:44 PM CDT) Ventricular Rate ECG/Min 145 BPM MUSE PA Interval 136 ms MUSE QRSD Interval 64 ms MUSE QT Interval 260 ms MUSE QTC Interval 403 ms MUSE P [place] 44 degrees MUSE R [place] 9 degrees MUSE T Wave [place] -76 degrees MUSE 08/30/2023 7:44 PM CDT [...] Kirstin Hughes M.D. ECG ORDERABLES MUSE NA documented in this encounter Visit Diagnoses Diagnosis Hematuria- Primary Hematuria Tachycardia Hematuria Gross Hematuria documented in this encounter Admitting Diagnoses Diagnosis Hematuria Hematuria Gross documented in this encounter Administered Medications Active Administered Medications - up to 3 most recent administrations Medication Order MAR Action Action Date Dose Rate Site acetaminophen tablet 1,000 mg (TYLENOL) 1,000 mg, oral, Every 6 hours PRN, mild pain or score 1-3 of 10, Starting on Tue08/30/23 at 2239, For mild pain, give acetaminophen before tramadol. Given 09/01/2023 10:12 PM CDT 1,000 mg Given 08/31/2023 12:05 AM CDT 1,000 mg enzalutamide capsule 120 mg (XTANDI) 120 mg, oral, Daily, First dose on Tue08/31/23 at 0900, HAZARDOUS - Handle with care. Swallow whole. Do NOT crush, chew or open capsule. Given 09/02/2023 9:29 AM CDT 120 mg Given 09/01/2023 8:49 AM CDT 120 mg Given 08/31/2023 9:43 AM CDT 120 mg heparin (porcine) 100 Units/mL in NaCl 0.45% 250 mL infusion 0-30 Units/kg/hr ? 92.4 kg (0-27.72 mL/hr), intravenous, Continuous, Starting on Tue09/01/23 at 0915, 25,000 Units in 250 mL, Intensity type: [...] anti-Xa: 6 hours after Heparin resumed, Anti-Xa >0.91: Hold Infusion: Stop infusion for 2 hours, Anti-Xa >0.91: Adjust Dose (Units/kg/hr): -4, Anti-Xa >0.91: Repeat anti-Xa: 6 hours after Heparin resumed Rate/Dose Change 09/03/2023 4:17 AM CDT 12 Units/kg/hr 11.1 mL/hr New Bag 09/02/2023 10:30 AM CDT 12 Units/kg/hr 11.1 mL/ hr Rate/Dose Change 09/02/2023 4:09 AM CDT 12 Units/kg/hr 11. 1 mL/hr Lactated Ringer's 50 mL/hr, intravenous, Continuous, Starting on Tue08/31/23 at 1400, PACU & Post-Op New Bag 09/02/2023 12:08 PM CDT 50 mL/hr 50 mL/hr New Bag 09/01/2023 4:04 PM CDT 50 mL/hr 50 mL/hr New Bag 08/31/2023 5:21 PM CDT 50 mL/hr 50 mL/hr metoprolol succinate 24 hr tablet 50 mg (TOPROL-XL) 50 mg, oral, Daily, First dose on Tue08/31/23 at 0900, Do NOT crush or chew. Tablet may be split on score if needed. Given 09/02/2023 9:30 AM CDT 50 mg Given 09/01/2023 8:44 AM CDT 50 mg Given 08/31/2023 9:39 AM CDT 50 mg mirabegron 24 hr tablet 50 mg (MYRBETRIQ) 50 mg, oral, Daily, First dose on Tue08/31/23 at 0900, Swallow whole. Do NOT crush, chew, or split tablet. Given 09/02/2023 9:30 AM CDT 50 mg Given 09/01/2023 8:45 AM CDT 50 mg Given 08/31/2023 9:38 AM CDT 50 mg NaCl 0.9 % irrigation solution 3,000 mL 3,000 mL, irrigation, Continuous, Starting on Tue08/30/23 at 2213, FOR BLADDER IRRIGATION ONLY, NOT FOR IV USE New Bag 09/01/2023 4:33 PM CDT 3,000 mL New Bag 09/01/2023 2:05 AM CDT 3,000 mL New Bag 08/30/2023 10:13 PM CDT 3,000 mL NaCl 0.9 % irrigation solution 3,000 mL 3,000 mL, irrigation, Continuous, Starting on Tue08/30/23 at 2213, FOR BLADDER IRRIGATION ONLY, NOT FOR IV USE New Bag 09/01/2023 8:01 AM CDT 3,000 mL New Bag 08/31/2023 6:11 PM CDT 3,000 mL New Bag 08/31/2023 5:21 PM CDT 3,000 mL oxyCODONE IR tablet 2.5 mg (ROXICODONE) 2.5 mg, oral, Every 4 hours PRN, moderate pain or score 4-6 of 10, May use if patient can take oral meds and other analgesics are ineffective, Starting on Tue08/30/23 at 2256 oxyCODONE IR tablet 5 mg (ROXICODONE) 5 mg, oral, Every 4 hours PRN, severe pain or score 7-10 of 10, May use if patient can take oral meds and other analgesics are ineffective, Starting on Tue08/30/23 at 2256 rosuvastatin tablet 40 mg (CRESTOR) 40 mg, oral, Daily, First dose on Tue08/31/23 at 0900 Given 09/02/2023 9:30 AM CDT 40 mg Given 09/01/2023 8:42 AM CDT 40 mg Given 08/31/2023 9:38 AM CDT 40 mg sennosides-docusate sodium 8.6-50 mg per tablet 1 tablet (SENOKOT-S) 1 tablet, oral, 2 times daily, First dose on Tue08/31/23 at 0900, Do not give if patient has diarrhea. Given 09/02/2023 8:11 PM CDT 1 tablet Given 09/02/2023 9:30 AM CDT 1 tablet Given 09/01/2023 8:22 PM CDT 1 tablet sodium chloride 0.9 % injection 3 mL 3 mL, intravenous, Every 12 hours scheduled, First dose on Tue08/31/23 at 0900, Peripheral Intravenous Catheter and Rapid Infusion Catheter, when no infusion to maintain patency Given 09/02/2023 9: 35 AM CDT 3 mL Given 09/01/2023 8:42 AM CDT 3 mL trospium tablet 20 mg (SANCTURA) 20 mg, oral, 2 times daily PRN, bladder spasms, Starting on Tue08/30/23 at 2236, Administer with water at least 1 hr prior to meals., Restriction Criteria (Pharmacy will review and approve if criteria met): Use in patients 65 years of age or older Given 08/31/2023 12:05 AM CDT 20 mg Inactive Administered Medications - up to 3 most recent administrations Medication Order MAR Action Action Date Dose Rate Site iohexoL 350 mg iodine/mL solution (OMNIPAQUE) As needed, Starting on Tue08/31/23 at 1355, Intra-Op Given 08/31/2023 1:55 PM CDT 50 mL Other documented in this encounter Active and Recently Administered Medications Times are shown in CDT. Scheduled Medication Order 09/01/2023 09/02/2023 09/03/2023 amLODIPine tablet 10 mg (NORVASC) 10 mg, oral, Daily, First dose on Tue08/31/23 at 0900, On hold since Tue08/30/2023 at 2240 until manually unheld 899 (Dose Auto Held) 0900 (Not Given - Provider: Sarah Morgan R.N. - Reason: See Provider Order) 0900 (Dose Auto Held) cefTRIAXone in dextrose (iso osm) IVPB 1 g (ROCEPHIN) (CANCELED) 1 g, intravenous, at 200 mL/hr, Administer over 15 Minutes, Every 24 hours, First dose on Tue08/30/23 at 2300, Drug Monitoring Program: Pharmacist to adjust medication dosing based on indication and drug clearance factors., Indications: Prophylaxis, surgical 2211 (New Bag - Provider: Denise Munoz R.N.) enzalutamide capsule 120 mg (XTANDI) 120 mg, oral, Daily, First dose on Tue08/31/23 at 0900, HAZARDOUS - Handle with care. Swallow whole. Do NOT crush, chew or open capsule. 0849 (Given - Provider: Sergio Martinez R.N.) 0929 (Given - Provider: Sarah Morgan R.N.) 09 (Due) metoprolol succinate 24 hr tablet 50 mg (TOPROL-XL) 50 mg, oral, Daily, First dose on Tue08/31/23 at 0900, Do NOT crush or chew. Tablet may be split on score if needed. 0844 (Given - Provider: Sergio Martinez R.N.) 0930 (Given - Provider: Sarah Morgan R.N.) 899 (Due) mirabegron 24 hr tablet 50 mg (MYRBETRIQ) 50 mg, oral, Daily, First dose on Tue08/31/23 at 0900, Swallow whole. Do NOT crush, chew, or split tablet. 0845 (Given - Provider: Sergio Martinez R.N.) 0930 (Given - Provider: Sarah Morgan R.N.) 0900 (Due) rosuvastatin tablet 40 mg (CRESTOR) 40 mg, oral, Daily, First dose on Tue08/31/23 at 0900 0842 (Given - Provider: Sergio Martinez R.N.) 0930 (Given - Provider: Sarah Morgan R.N.) 0900 (Due) sennosides-docusate sodium 8.6-50 mg per tablet 1 tablet (SENOKOT-S) 1 tablet, oral, 2 times daily, First dose on Tue08/31/23 at 0900, Do not give if patient has diarrhea. 0842 (Given - Provider: Sergio Martinez R.N.)2021 (Given - Provider: Denise Munoz R.N.) 09 (Given - Provider: Sarah Morgan R.N.)2010 (Given - Provider: Brittni Howe R.N.) 0900 (Due)2099 (Due) sodium chloride 0.9 % injection 3 mL 3 mL, intravenous, Every 12 hours scheduled, First dose on Tue08/31/23 at 0900, Peripheral Intravenous Catheter and Rapid Infusion Catheter, when no infusion to maintain patency 0842 (Given - Provider: Sergio Martinez R.N.)2022 (Not Given - Provider: Denise Munoz R.N. - Reason: Other - Comment: fluid is running) 934 (Given - Provider: Sarah Morgan R.N.)2010 (Not Given - Provider: Brittni Howe R.N. - Reason: Order parameters not met) 899 (Due)2099 (Due) Continuous Medication Order 09/01/2023 09/02/2023 09/03/2023 heparin (porcine) 100 Units/mL in NaCl 0.45% 250 mL infusion 0-30 Units/kg/hr ? 92.4 kg (0-27.72 mL/hr), intravenous, Continuous, Starting on Tue09/01/23 at 0915, 25,000 Units in 250 mL, Intensity type: [...] anti-Xa: 6 hours after Heparin resumed, Anti-Xa >0.91: Hold Infusion: Stop infusion for 2 hours, Anti-Xa >0.91: Adjust Dose (Units/kg/hr): -4, Anti-Xa >0.91: Repeat anti-Xa: 6 hours after Heparin resumed 1142 (New Bag - Provider: Sergio Martinez R.N.)1532 (Handoff - Provider: Sergio Martinez R.N. - Comment: verified by Dylan)2102 (Rate/Dose Change - Provider: Denise Munoz R.N.)2338 (Handoff - Provider: Denise Munoz RJonahNJonah) 0409 (Rate/Dose Change - Provider: Mayur CaldwellNJonah)0723 (Handoff - Provider: Mayur CaldwellNJonah)1030 (New Bag - Provider: Sarah Morgan RJonahNJonah)1926 (Handoff - Provider: Mayur GomezNJonah) 0417 (Rate/Dose Change - Provider: Brittni Howe R.N.) Lactated Ringer's 50 mL/hr, intravenous, Continuous, Starting on Tue08/31/23 at 1400, PACU & Post-Op 1150 (Stopped - Provider: Mayur KochNJonah)1604 (New Bag - Provider: Denise Munoz R.N.) 1208 (New Bag - Provider: Mayur NolascoN.) NaCl 0.9 % irrigation solution 3,000 mL 3,000 mL, irrigation, Continuous, Starting on Tue08/30/23 at 2213, FOR BLADDER IRRIGATION ONLY, NOT FOR IV USE 0205 (New Bag - Provider: Michel Durbin)1633 (New Bag - Provider: Oscar Mckenna) 0700 (Stopped - Provider: Sarah Morgan R.N. - Comment: by service) NaCl 0.9 % irrigation solution 3,000 mL 3,000 mL, irrigation, Continuous, Starting on Tue08/30/23 at 2213, FOR BLADDER IRRIGATION ONLY, NOT FOR IV USE 0801 (New Bag - Provider: Favio August) 0700 (Stopped - Provider: Sarah Morgan R.N. - Comment: stopped by service) PRN Medication Order 09/01/2023 09/02/2023 09/03/2023 acetaminophen tablet 1,000 mg (TYLENOL) 1,000 mg, oral, Every 6 hours PRN, mild pain or score 1-3 of 10, Starting on Tue08/30/23 at 2238, For mild pain, give acetaminophen before tramadol. 2211 (Given - Provider: Denise Munoz RJonahNJonah) alum-mag hydroxide-simeth 200-200-20 mg/5 mL suspension 30 mL (Maalox) 30 mL, oral, 4 times daily PRN, indigestion, Starting on Tue08/30/23 at 223 bacitracin 500 unit/gram ointment 1 Application 1 Application, topical, 4 times daily PRN, catheter irritaiton, Starting on Tue08/30/23 at 2235, Apply to tip of penis as needed for catheter irritation benzocaine-menthoL 15-3.6 mg per lozenge 1 lozenge (CEPACOL) 1 lozenge, oral, As needed, sore throat, Starting on Tue08/30/23 at 223 bisacodyL suppository 10 mg (DULCOLAX) 10 mg, rectal, Daily PRN, constipation, Starting on Tue08/30/23 at 2239, Ordered sequence of administration: polyethylene glycol, then bisacodyl until BM achieved. naloxone injection 0.2 mg (NARCAN) 0.2 mg, intravenous, As needed, respiratory depression, Starting on Tue08/30/23 at 2235, For RASS Score -4 or less, respiratory rate of less than 8 breaths/min. Notify provider/service and rapid response team (if available at institution). ondansetron (PF) injection 4 mg (ZOFRAN) 4 mg, intravenous, Every 6 hours PRN, nausea, vomiting, Starting on Tue08/30/23 at 2238 oxyCODONE IR tablet 2.5 mg (ROXICODONE)(Linked Group 1) 2.5 mg, oral, Every 4 hours PRN, moderate pain or score 4-6 of 10, May use if patient can take oral meds and other analgesics are ineffective, Starting on Tue08/30/23 at 2255 oxyCODONE IR tablet 5 mg (ROXICODONE)(Linked Group 1) 5 mg, oral, Every 4 hours PRN, severe pain or score 7-10 of 10, May use if patient can take oral meds and other analgesics are ineffective, Starting on Tue08/30/23 at 2255 polyethylene glycol powder packet 17 g (MIRALAX) 17 g, oral, Daily PRN, constipation, Starting on Tue08/30/23 at 2238, Ordered sequence of administration: polyethylene glycol, then bisacodyl until BM achieved. Avoid mixing with starch-based thickened liquids. sodium chloride 0.9 % injection 10 mL 10 mL, intravenous, As needed, line care, Starting on Tue08/30/23 at 2235, Peripheral Intravenous Catheter and Rapid Infusion Catheter, prior to blood sampling, post blood transfusion or post blood sampling sodium chloride 0.9 % injection 3 mL 3 mL, intravenous, As needed, line care, Starting on Tue08/30/23 at 2235, Prior to and following infusion and between multiple consecutive infusions: sodium chloride 0.9 % injection trospium tablet 20 mg (SANCTURA) 20 mg, oral, 2 times daily PRN, bladder spasms, Starting on Tue08/30/23 at 2235, Administer with water at least 1 hr prior to meals., Restriction Criteria (Pharmacy will review and approve if criteria met): Use in patients 65 years of age or older Linked Groups Order Group 1: oxyCODONE IR tablet 2.5 mg (ROXICODONE)Jump to med 2.5 mg, oral, Every 4 hours PRN, moderate pain or score 4-6 of 10, May use if patient can take oral meds and other analgesics are ineffective, Starting on Tue08/30/23 at 2256 Or oxyCODONE IR tablet 5 mg (ROXICODONE)Jump to med 5 mg, oral, Every 4 hours PRN, severe pain or score 7-10 of 10, May use if patient can take oral meds and other analgesics are ineffective, Starting on Tue08/30/23 at 2256 documented in this encounter Care Teams Machine Hostler Relationship Specialty Start Date End Date Elsewhere, Pcp PCP - General Internal Medicine 08/13/23 documented as of this encounter
--- OUTSIDE RECORDS SUMMARY | 2023-09-03 05:34 | XMS_ITS | Referral Summary ---
Author Organization [facility] Address [address] [place] [address] Care Team Providers Care Shine Worker Name Role Phone Elsewhere, Pcp Primary Care Provider Unavailabl e Source Comments Patient records contain information from all sites at [facility]. For routine questions regarding patient records, call [phone] during business hours, M-F 8:00 AM - 5:00 PM Central Time. Record requests for emergency care only can be directed to [phone] at any time.[facility] Encounters Date Type Department Care Team Description 09/01/2023 10:05 AM CDT Ancillary Procedure Department of Nursing Arrived 08/31/2023 12:25 PM CDT Ancillary Procedure Department of General Surgery Arrived 08/31/2023 12:34 PM CDT Anesthesia Event [facility] [address] [place] [phone] Joe Stoll M.D. Gran, Terry L, ANESTHETIC ASSISTANT, SWITCH ENGINEER 08/31/2023 12:36 PM CDT - 08/31/2023 2:31 PM CDT Surgery [facility] [address] [place] [phone] Mayur Alvarez M.D. CYSTOSCOPY EVACUATION CLOTS 08/30/2023 7:35 PM CDT - Present Hospital Encounter [facility], [facility], [facility], First Floor [address] [place] [phone] Kirstin Hughes M.D. Thompson, R. Houston, M.D. Hematuria (Primary Dx); Tachycardia 08/30/2023 Documentation Department of Urology in [place], [place] [address] [place] [phone] Corin Ring M.D. 08/30/2023 Intake [facility] 08/26/2023 Orders Only Department of Urology in [place], [place] [address] [place] [phone] Paula Hernandez M.D. 08/13/2023 3:42 PM CDT - 08/26/2023 4:11 PM CDT Hospital Encounter [facility], [facility], [facility], Sixth Floor [address] [place] [phone] Darnell Garcia M.D. Chow, George K, M.D. Decline Functional Status [R53.81] (Primary Dx); Hematuria [R31.9] Discharge Disposition: Home or Self Care 08/23/2023 12:45 AM CDT Ancillary Procedure Department of Nursing 08/15/2023 8:30 AM CDT Anesthesia Event [facility] [address] [place] [phone] Hayde Song M.D. 08/15/2023 7:55 AM CDT - 08/15/2023 11:23 AM CDT Surgery [facility] [address] [place] [phone] Boubacar Brock M.D. Palliative EXPLORATORY LAPAROTOMY, CYSTOTOMY CLOSURE, RIGHT URETERAL STENT EXCHANGE 08/13/2023 4:35 PM CDT Ancillary Procedure Department of Radiology in [place], [place] [address] [place] [address] Carlos Alberto Henson M.D. 08/13/2023 Intake RST [...] Tobacco: Never Tobacco Cessation:Counseling Given: Not Answered [facility] [employer] Answer Date Recorded In the past 12 months [facility] [employer], gas, oil, or water [employer] threatened to shut off services in [...] your living situation today? I have a [facility] place to live 08/13/2023 Sex [...] CDT Procedure visit Department of Urology in [place], [place] [address] [place] [phone] Sima Venegas M.D. 200 [place] [phone] Medical Devices Implanted Type Area Public Relations Officer Device Identifier Shelf Expiration Date Model / Serial / Lot Clp Hrzn Ti 6 Clp Lg Orng - [id number] Implanted:Qt y: 1 on 08/15/2023 by Boubacar Brock M.D. at [facility] Hardware e.g. pins/screws /rods Abdomen [employer] [id number] 02/29/2028 [id number] / / [id number] Clp Hrzn Ti 6 Clp Lg Orng - [id number] Implanted:Qt y: 1 on 08/15/2023 by Boubacar Brock M.D. at [facility] Hardware e.g. pins/screws /rods Abdomen [employer] [id number] 02/29/2028 [id number] / / [id number] Clp Hrzn Ti 6 Clp Md Monty - [id number] Implanted:Qt y: 1 on 08/15/2023 by Boubacar Brock M.D. at [facility] Hardware e.g. pins/screws /rods Abdomen [employer] [id number] 03/13/2028 [id number] / / [id number] Clp Hrzn Ti 6 Clp Md Monty - [id number] Implanted:Qt y: 1 on 08/15/2023 by Boubacar Brock M.D. at [facility] Hardware e.g. pins/screws /rods Abdomen [employer] [id number] 03/21/2028 [id number] / / [id number] Stnt Uret Inl 6fx24 - [id number] Implanted:Qt y: 1 on 08/15/2023 by Jakob De Paz M.D. at [facility] Ureteral Stent N/A: Ureter C.[employer].Bard [id number] 11/18/2027 [id number] / / [id number] Procedures The patient is currently admitted. The [...] LINE INSERTION Routine 08/15/2023 9:51 AM CDT AK US GUIDE VASC ACCESS Routine 08/15/2023 9:51 AM CDT AK ARTL CATH/CNULA MONITOR PERC Routine 08/15/2023 9:51 [...] Alvarez M.D. LAB BLOOD NON A DD-ON [address] [address], [facility] [place] [address] * (ABNORMAL) CBC without Differential (09/03/2023 3:29 AM CDT) Only the most recent of12 resultswithin the time period is included. [facility] Hemoglobin 8.0(L) 13.2 - 16.6 g/dL 09/03/2023 [...] M.D. LAB BLOOD ADD-ON Performing Organization Address City/[facility]/ZIP Co de Phone Number [facility] [address] [place] [address], [facility] DTL [facility] [address] [place] [address] * Buttock/Sacrum-Nursing Image Exam (09/01/2023 10:05 AM [...] RAD IMAGI NG PROCEDURES Performing Organization Address [facility] Co de Phone Number IIAR NA * APTT (Activated Partial Thromboplastin Time) (09/01/2023 9:05 AM CDT) Only the most recent of11 resultswithin the time period is included. Activated Partial Thrombopl Time, P 28 25 - 37 sec 09/01/2023 9:35 AM CDT STMA Blood (Blood, Venous) 09/01/2023 9:05 AM CDT 09/01/2023 9:21 AM CDT Paula Hernandez M.D. LAB BLOOD ADD-ON Performing Organization Address City/[facility]/ZIP Co de Phone Number [facility] [address] [place] [address], [facility] STMA [facility] [address] [place] [address] * (ABNORMAL) Basic Metabolic Panel (08/31/2023 9:36 [...] CDT Paula Hernandez M.D. LAB BLOOD ADD-ON [facility] [address] [place] [address], [facility] DTL [facility] [address] [place] [address] * FL Fluoro Less Than 1 Hour [...] M.D. IMG FLUOROSCOPY PROCEDURES Performing Organization Address [facility]/ZIP Co de Phone Number 152 HOS LOS [...] RAD IMAGI NG PROCEDURES Performing Organization Address [facility] Co de Phone Number IIMS NA * Transfuse Red Blood Cells [...] * (ABNORMAL) Hemoglobin (08/31/2023 4:21 AM CDT) [facility] Hemoglobin 7.8(L) 13.2 - 16.6 g/dL 08/31/2023 4:47 AM CDT DTL Blood (Blood, Venous) 08/31/2023 4:21 AM CDT 08/31/2023 4:35 AM CDT Kimi Vieira M.D., M.S. LAB BLOO D ADD-ON Performing Organization Address City/[facility]/ZIP Co de Phone Number [facility] [address] [facility] [address] [place] [address] * Type and Screen (with Reflex Antibody ID) (08/30/2023 9:50 PM CDT) Only the most recent of4 resultswithin the time period is included. [facility] ABORh O Pos Not applicable 08/30/2023 10:17 PM CDT STRM Antibody Screen Negative Negative 08/30/2023 10:31 PM CDT STRM Type & Screen Expiration 09/02/2023 23:59 08/30/2023 10:17 PM CDT STRM Testing Location Marcio DEFAULT 08/30/2023 9:58 PM CDT STRM Blood (Blood, Venous) 08/30/2023 9:50 PM CDT 08/30/2023 9:58 PM CDT Shannan Correa D.O., M.H.A. LAB BLOOD BANK TEST ORDERABLES Performing Organization Address [facility]/ZIP Co de Phone Number [facility] [address] [place] [address], [facility] STRM [facility] [address] [place] [address] * Lactate (08/30/2023 9:50 PM CDT) [facility] Lactate, P 1.8 0.5 - 2.2 mmol/L 08/30/2023 10:09 PM CDT STMA Blood (Blood, Venous) 08/30/2023 9:50 PM CDT 08/30/2023 9:55 PM CDT Shannan Correa D.O., M.H.A. LAB BLOOD NON ADD-ON [facility] [address] [place] [address], [facility] STMA [facility] [address] [place] [address] * (ABNORMAL) CBC with Differential, Blood (08/30/2023 9:49 PM CDT) Only the most recent of6 resultswithin the time period is included. Hemoglobin 8.5(L) 13.2 - 16.6 g/dL 08/30/2023 [...] Correa D.O., M.H.A. LAB BLOOD ADD- ON [facility] [address] [place] [address], [place] STMA [facility] [address] [place] [address] DHPM [facility] [address] [place] [address] * DX Chest AP or PA and [...] to haveinternal vascularity. Indwelling Tabares catheter. Shannan Correa D.O., M.H.A. IMG US PROCEDU RES * ECG 12 Lead (08/30/2023 7:44 PM CDT) Only the most recent of3 resultswithin the time period is included. Ventricular Rate ECG/Min 145 BPM MUSE AK Interval 136 ms MUSE QRSD Interval 64 ms MUSE QT Interval 260 ms MUSE QTC Interval 403 ms MUSE P Brixey 44 degrees MUSE R Brixey 9 degrees MUSE T Wave Brixey -76 degrees MUSE 08/30/2023 7:44 PM CDT [...] tunneled PICC line. NR Paula Hernandez M.D. IMPrieto IR PROCEDURES * (ABNORMAL) Renal Function Panel [...] M.D. LAB BLOOD ADD-ON Performing Organization Address City/[facility]/[place] [address] * Magnesium (08/26/2023 3:20 AM CDT) Only the most recent of6 resultswithin the time period is included. Magnesium, S 2.1 1.7 - 2.3 mg/dL 08/26/2023 4:04 AM CDT DTL Blood (Blood, Venous) 08/26/2023 3:20 AM CDT 08/26/2023 3:50 AM CDT Boubacar Brock M.D. LAB BLOOD ADD-ON [facility] 200 [place] [address] * (ABNORMAL) Potassium (08/23/2023 9:58 PM CDT) Potassium, S 3.5(L) 3.6 - 5.2 mmol/L 08/23/2023 10:45 PM CDT DTL Blood (Blood, Venous) 08/23/2023 9:58 PM CDT 08/23/2023 10:30 PM CDT Boubacar Brock M.D. LAB BLOOD ADD-ON Performing Organization Address City/[facility]/ZIP Co de Phone Number [facility] [address] [place] [address] * (ABNORMAL) Phosphorus Inorganic (08/23/2023 9:58 PM CDT) Only the most recent of2 resultswithin the time period is included. Phosphorus (Inorganic), S 2.1(L) 2.5 - 4.5 mg/dL 08/23/2023 10:45 PM CDT DT Blood (Blood, Venous) 08/23/2023 9:58 PM CDT 08/23/2023 10:30 PM CDT Paula Hernandez M.D. LAB BLOOD ADD-ON Performing Organization Address City/[facility] Co de Phone Number [facility] [address] [place] [address] * Triglycerides (08/23/2023 3:42 AM CDT) Only [...] CDT Boubacar Brock M.D. LAB BLOOD ADD-ON [facility] [address] [place] [address], [facility] DTL [facility] [address] [place] [address] * Glucose, POCT (08/22/2023 11:38 PM CDT) Glucose, POCT, B 117 70 - 140 mg/dL 08/23/2023 1:06 AM CDT PCLX Site Capillary 08/23/2023 1:06 AM CDT PCLX Last Intake NPO 08/23/2023 1:06 AM CDT PCLX Blood 08/22/2023 11:3 8 PM CDT 08/23/2023 1:06 AM CDT Unknown Provider LAB POCT ORDERABLES- MANUAL Performing Organization Address [facility] Co de Phone Number POC [facility] [address] [place] [address], [facility] PCLX [facility] POC [address] [place] [address] * CT Abdomen Pelvis without IV Contrast [...] mild proctocolitis. Paula CHOUDHARY CT PROCEDURES * Creatinine, Body Fluid (08/22/2023 [...] transport rates. All other fluids refer to www.[employer].com for further interpretive information. This test has been modified from the sanitary landfill operator's instructions. Its performance characteristics were determined by [facility] in a manner consistent with CLIA requirements. This test has not been cleared or approved by the U.S. Food and Drug Administration. Fluid Type, Creatinine Fluid, Abdomen 08/22/2023 3:52 PM CDT DTL Fluid (Abdomen) 08/22/2023 3 :30 PM CDT 08/22/2023 6:36 PM CDT Corin Ring M.D. LAB BODY FLUIDS AND STOOLS ORDERABLES [facility] [address] [place] [address], [facility] [address] [place] [address] * IR PICC Line Placement (08/22/2023 8:35 AM CDT) Anatomical Region Laterality Modality Chest, Pelvis, Abdomen, Vasc ular Interventional RST LOS, Vascular Interventional ARZ LOS, Vascular Interventional FLA LOS N/A X-Ray Angiography Impressions 08/22/2023 9:05 AM CDT Placement of a right IJ vein single-lumen 4 Yemeni tunneled PowerPICC ready for immediate use. NR [...] advanced into the IVC and a 4 Yemeni dilator advanced over the wire and attached to a one-way stopcock. A suitable exit site in the right anterior chest was anesthetized and a small incision made. A 4 Yemeni single-lumen PowerPICC was then tunneled from the [...] Wireadvanced into the IVC and a 4 Yemeni dilator advanced over the wire andattached to a one-way stopcock. A suitable exit site in the right anteriorchest was anesthetized and a small incision made. A 4 Yemeni single-lumen PowerPICC was then tunneled fromthe skin [...] of a right IJ vein single-lumen 4 Yemeni tunneled PowerPICCready for immediate use. NR Kimi [...] CDT Latisha Whitehead M.D. LAB BLOOD ADD-ON [facility] [address] [place] [address], [facility] DTL [facility] [address] [place] [address] * Place peripherally inserted central catheter (PICC) [...] Procedure Note Raul Vázquez M.D., M.S. - 05/11/2024 EXAM: DX ABDOMEN PORTABLE ANTERIOR POSTERIOR 1 [...] and management can be found on the [employer] site. Link [email or web address]/topic/clinical-[email or web address]/[email or web address] Findings discussed with ??Tayler Greenwood, ?? ([id number]) on 08/17/2023 7:11 PM. Procedure Note Jj [...] be found on the[employer] site. [email or web address]/[email or web address] [email or web address] Findings discussed with Tayler Greenwood MD ([id number]) on 08/17/2023 7:11 PM. IMPRESSION: 1. 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 2. No acute left-sided DVT. Corin Ring M.D. IMG US PROCEDURES * DX Abdomen 1 View [...] BLOOD NON ADD-O N Performing Organization Address City/[facility]/ZIP Co de Phone Number [facility] [address] [place] [address] * Patient Status (08/15/2023 11:56 AM CDT) Only the most recent of2 resultswithin the time period is included. Temperature 36.2 37.0 deg C 08/15/2023 12:04 PM CDT STMA Blood 08/15/2023 11:5 6 AM CDT 08/15/2023 12:03 PM CDT Rae Gonzalez ANESTHETIC ASSISTANT, SWITCH ENGINEER, DNAP LAB BLOO D NON ADD-ON [facility] [address] [place] [address], [facility] [address] [place] [address] * Sodium, B (08/15/2023 11:56 AM CDT) Only the most recent of2 resultswithin the time period is included. Sodium, B 135 135 - 145 mmol/L 08/15/2023 12:06 PM CDT STMA Blood (Blood, Arterial Line) 08/15/2023 11:56 AM CDT 08/15/2023 12:03 PM CDT Hayde Song M.D. LAB BLOOD NON ADD-O N [facility] [address] [place] [address], [facility] STMA [facility] [address] [place] [address] * (ABNORMAL) Blood Gas with Coox, Arterial [...] Song M.D. LAB BLOOD NON ADD-O N [facility] [address] [place], [place] [address] [address] [place] [address] * Potassium, Blood (08/15/2023 11:56 AM CDT) Only the most recent of2 resultswithin the time period is included. Potassium, B 4.3 3.6 - 5.2 mmol/L 08/15/2023 12:07 PM CDT [facility] Blood (Blood, Arterial Line) 08/15/2023 11:56 AM CDT 08/15/2023 12:03 PM CDT Hayde Song M.D. LAB BLOOD NON ADD-O N Performing Organization Address City/[facility]/ZIP Co de Phone Number [facility] [address] [place], [place] [address] [address] [place] [address] * (ABNORMAL) Glucose, Whole Blood (08/15/2023 11:56 AM CDT) Only the most recent of2 resultswithin the time period is included. Glucose 144(H) 70 - 140 mg/dL 08/15/2023 12:06 PM CDT [facility] Blood (Blood, Arterial Line) 08/15/2023 11:56 AM CDT 08/15/2023 12:03 PM CDT Hayde Song M.D. LAB BLOOD ADD-ON [facility] [address] [place] [address], [facility] [address] [place] [address] * (ABNORMAL) Calcium, Ionized (08/15/2023 11:56 AM CDT) Only the most recent of2 resultswithin the time period is included. Calcium, Ionized, B 4.53(L) 4.65 - 5.30 mg/dL 08/15/2023 12:07 PM CDT STMA Blood (Blood, Arterial Line) 08/15/2023 11:56 AM CDT 08/15/2023 12:03 PM CDT Hayde Song M.D. LAB BLOOD NON ADD-O N [facility] [address] [place] [address], [facility] [address] [place] [address] * AK ARTL CATH/CNULA MONITOR PERC, AK US GUIDE VASC ACCESS, LDA ANE ARTERIAL LINE INSERTION, MC ANE INVASIVE CATH WITH ULTRASOUND (08/15/2023 9:51 AM CDT) Narrative Rae Gonzalez APRN, CRNA DNAP - 08/15/2023 9:51 AM CDT Rae [...] ETT location: oral VL device: glide scope [place] scope blade size: 4 Tube size: 7.5 [...] CDT Comment:Specimen Source Site : Blood Narrative [facility] - 08/20/2023 6:02 AM CDT Received Bactec aerobic and Bactec anaerobic bottles Carlos Alberto Henson M.D. LAB MICROBIOLOGY - G ENERAL ORDERABLES Performing Organization Address City/[facility] Co de Phone Number [facility] [address] [place] [address], [facility] [address] [place] [address] * (ABNORMAL) Hepatic Function Panel (08/13/2023 5:27 [...] Carlos Alberto Henson M.D. LAB BLOOD ADD-ON [facility] [address] [place] [address], [facility] [address] [place] [address] * Prothrombin Time (PT) (08/13/2023 5:27 PM CDT) Prothrombin Time, P 12.4 9.4 - 12.5 sec 08/13/2023 5:38 PM CDT [facility] 1.1 0.9 - 1.1 08/13/2023 5:38 PM CDT STMA Comment: ----ADDITIONAL INFORMATION---- Standard intensity warfarin therapeutic range: 2.0 to 3.0 ?? High intensity warfarin therapeutic range: 2.5 to 3.5 Blood (Blood, Venous) 08/13/2023 5:27 PM CDT 08/13/2023 5:31 PM CDT Carlos Alberto Henson M.D. LAB BLOOD ADD-ON Performing Organization Address City/[facility]/ZIP Co de Phone Number [facility] [address] [place] [address] * Osmolality, Urine (08/13/2023 5:07 PM CDT) Osmolality, U 351 150 - 1150 mOsm/kg 08/13/2023 7:46 PM CDT DTL Urine 08/13/2023 5:07 PM CDT 08/13/2023 5:45 PM CDT Carlos Alberto Henson M.D. LAB URINE ORDERABLES Performing Organization Address [facility]/ZIP Co de Phone Number [facility] [address] [place] [place] [address] [place] [address] [place] [address] * (ABNORMAL) Dipstick, Urine (08/13/2023 5:07 PM [...] M.D. LAB URINE ORDERABLES Performing Organization Address City/[facility]/ZIP Co de Phone Number [facility] [address] [place] [address] * pH, Random, Urine (08/13/2023 5:07 PM CDT) pH, Random, U 7.0 4.5 - 8.0 08/13/2023 7:46 PM CDT DTL Urine 08/13/2023 5:07 PM CDT 08/13/2023 5:45 PM CDT Carlos Alberto Henson M.D. LAB URINE ORDERABLES Performing Organization Address City/[facility] Co de Phone Number [facility] [address] [place] [address] * (ABNORMAL) Microscopic Manual (08/13/2023 5:07 PM [...] Carlos Alberto Henson M.D. LAB URINE ORDERABLES [facility] [address] [place] [address], [facility] [address] [place] [address] * (ABNORMAL) Bacterial Culture, Aerobic + Susceptibility, [...] Carlos Alberto Henson M.D. LAB MICROBIOLOGY - [facility] ORDERABLES [address] [address], [facility] DTL [address] [address] * (ABNORMAL) Urinalysis, with Microscopic: Urine, Midstream [...] CDT DTL Predicted 24 [place] [address](H) <229 mg/24 h 08/13/2023 8:50 PM CDT DTL Predicted Range 66832-006201 mg/24 h 08/13/2023 8:50 PM CDT DTL Comment Micro done on <2.5 mL 08/13/2023 7:55 PM CDT DTL Urine (Urine, Midstream) 08/13/2023 5:07 PM CDT 08/13/2023 5:44 PM CDT Carlos Alberto Henson M.D. LAB URINE ORDERABLES [facility] [address] [place] [address], [place] DTL [facility] [address] [place] [address] * Interpretation of Outside CT Abdomen and [...] Advance Directives For more information, please contact: [phone] * Full Code (Latest Code Status on File) Date Activated Date Inactivated Comments 08/30/2023 10:40 PM Question Answer Comments Full Code: Not Discussed Due to: Patient not available * Full Code Date Activated Date Inactivated Comments 08/13/2023 4:30 PM 08/26/2023 6:58 PM Question Answer Comments Full Code: Discussed Care Teams Shine Worker Relationship Specialty Start Date End Date Elsewhere, Pcp PCP - General Internal Medicine 08/13/23
--- OUTSIDE RECORDS SUMMARY | 2023-09-03 05:34 | XMS_ITS | Encounter Summary ---
Author Organization [facility] Address [address] [place] [id number] Care Team Providers Care Artist Consultant Name Role Phone Elsewhere, Pcp Primary Care Provider Unavailabl e Encounter Details Date Type Department Care Team (Late st Contact Info) Description 08/31/2023 12:34 PM CDT Anesthesia Event RST ROMB MAIN OR [address] [place] [phone] Joe Stoll M.D. [address] [place] [address] [phone] Benjamin Williamson, SUPERVISOR [employer], WARPING MACHINE OPERATOR [address] [place] [address] [phone] Anesthesia Record Procedure Summary Procedure Name Responsible Anesthesiologist Anesthesia Start Time Anesthesia Stop Time CYSTOSCOPY EVACUATION CLOTS (Bladder) Joe Stoll M.D. 08/31/23 1234 08/31/23 1420 Events Date Time Event Comment 08/31/2023 1234 An Start Machine/Equipme nt Checked Infection Precautions Followed Procedure/Site Verified NPO Status Verified Supine Standard ASA Monitors Applied 1239 An Induction 1243 An Intubation 1245 Turnover to Proceduralist 1307 Proc Start 1359 Proc Fin 1402 Turnover to ANE Staff 1402 Airway Removal Criteria Met 1402 Extubation/Airway Removed 1406 an stop data 1420 An End I completed my handoff to [...] mcg/mL 200 mcg lidocaine 2% (mg) injection 60 mg phenylephrine 100 mcg/mL injection 700 m cg ondansetron 4 mg/2 mL injection 4 mg propofol 10 mg/mL injection 140 mg dexAMETHasone (DECADRON) injection 4 mg/ mL 4 mg ceFAZolin injection 2,000 mg (ANCEF) 2 g Lactated Ringers Free Drip 700 mL * Agents No agents on file. * Blood No blood administrations on file. Lines, Drains, and Airways Type Details Placement Removal Wound 08/15/23; 09; N; Incision; Pannus; Mid 08/15/23 09 by Janina Coronado R.N. Wound 08/22/23; 0825; Neck ; Right; Veinotomy 08/22/23 08 by Kirstin Valdes R.N. Wound 08/23/23; 0052; Y (P er patient); Unknown; (unsure); Other; Coccyx; ; Multifactorial Wound (Pressure, Moisture, Friction) 08/23/23 005 by Lisa Serrano RJonahNJonah Peripheral IV Placement Date: 08/10 05/04; Placement Time: 2048; Catheter Size: 20 G; Orientation: Right; Location: Hand; Insertion Attempts: 1 08/30/232048 by Chelsea Argueta R.N. Bladder Irrigation 08/31/23; 1403; Siddhartha peck MD; Stopped (DC'd CBI); Three-way; 24 Fr; 30 mL (20 ml fill saline); Yes 08/31/23 1403 by Jacqui Mehta R.N. Bladder Irrigation 08/15/23; 1143; Dr. De Paz; Continuous; Three-way; 24 Fr; 30 mL (balloon filled with 10 ml water); Yes; 08/31/23; 1304 08/15/23 1143 by Janina Coronado R.N. 08/31/23 1304 by Jacqui Mehta RNarendra Supraglottic Airway Placement Date: 08/10 06/04; Placement Time: 1243 (created via procedure documentation); Mask Ventilation: Not attempted; Brand: Unique; Size: 5; Removal Date: 08/31/23; Removal Time: 1402 08/31/23 1243 by Benjamin Williamson APRN, CRNA 08/31/23 1402 by Benjamin Williamson APRN, CRNA Indwelling Urinary Catheter Placement Date: 08/31/23; Placement Time: 1359; Inserted by: Siddhartha Venegas MD; Size: 24 Fr.; Balloon Size: (20 ml fill saline); Removal Date: 08/31/23; Removal Time: 1403 08/31/23 1359 by Jacqui Mehta R.N. 08/31/23 1403 by Jacqui Mehta R.N. documented in this encounter Social History Tobacco Use Types Packs/Day Years Used Date Smoking Tobacco: Never Smokeless Tobacco: Never [facility] Utilities Answer Date Recorded In the past 12 months has [facility] [employer], gas, oil, or water [employer] threatened to shut off services in your [...] money to buy more. Never true 08/13/19 Within the past 12 months, t he [...] your living situation today? I have a [facility] place to live 08/13/2023 Sex and Gender Information Value Date Recorded Sex Assigned at Not on file Gender Identity Not on file Sexual Orientation Not on file documented as of this encounter OR Notes * Anesthesia Postprocedure Evaluation - Joe Stoll M.D. - 08/31/2023 5:27 PM CDT Patient: Kalen Vega Procedure Summary Date: 08/31/23 Room / Location: [place] [address] / [facility] in [place], [place] Anesthesia Start: 1234 Anesthesia Stop: 1420 Procedures: CYSTOSCOPY EVACUATION CLOTS (Bladder) CYSTOSCOPY CYSTOGRAM (Bladder) Diagnosis: Hematuria (Hematuria [R31.9]) Providers: Mayur Alvarez M.D. Responsible Provider: Joe Stoll M.D. Anesthesia Type: general ASA Status: 4 - Emergent Anesthesia Type: general Last vitals Vitals Value Taken Time BP 165/85 08/31/23 1445 Temp 37.1 ??C 08/31/23 1445 Pulse 90 08/31/23 1454 Resp 16 08/31/23 1452 SpO2 94 % 08/31/23 1454 Vitals shown include unfiled device data. Please reference Vitals flowsheet for most recent vital signs. Anesthesia Post Evaluation Patient Disposition: general care unit Cardiovascular status: hemodynamics (HR & BP) acceptable Respiratory status: patent airway with spontaneous effort Temperature: normothermic Oxygen requirements: nasal cannula Level of consciousness: awake Pain score: pain adequately controlled and/or at baseline Post Op nausea/vomiting: none Hydration status: euvolemic * Anesthesia Procedure Notes - Benjamin Williamson APRN, CRNA - 08/31/2023 12:55 PM CDTAssociated Order(s): Airway Airway Date/Time: 08/31/2023 12:43 PM Performed by: Benjamin Williamson APRN, CRNA Authorized by: Joe Stoll M.D. Patient location during procedure: OR / Procedure Area PROCEDURE DETAILS: Mask difficulty assessment: not attempted Final airway type: supraglottic airway Device size: 5 Number of attempt to successful placement: 1 Supraglottic device: LMA unique Supraglottic device size: 5 Airway confirmation: bilateral breath sounds, positive ETCO2 and bilateral chest rise Other previous techniques attempted: none PRE PROCEDURE DETAILS: Pre evaluation for airway management: procedure Urgency: elective Preop assessment of probable difficulty: no difficulty anticipated Preoxygenation: bag valve mask SEDATION / ANESTHESIA Anesthesia method: anesthesia POST PROCEDURE DETAILS: Procedure outcome: successful * Anesthesia Preprocedure Evaluation - Joe Stoll M.D. - 08/31/2023 12:00 PM CDT Preprocedure Anesthesia & H&P Assessment Procedure Summary Date/Time: 08/31/23 1236 Procedure: CYSTOSCOPY EVACUATION CLOTS, fulguration, proceed as indicated Diagnosis: Hematuria [R31.9] Pre-op diagnosis: Hematuria [R31.9] Location: [place] [address] / [facility] in [place], [place] Providers: Mayur Alvarez M.D. Pertinent components of the patient's history including current problem list, medical history, surgical history, family history, social history, medications and allergies were reviewed. Present illness and pre-op diagnosis were confirmed. The planned surgery / procedure was verified with the patient / legal guardian. The patient's general health condition remains unchanged RELEVANT COMORBID CONDITIONS ONC (+) Primary Malignant Neoplasm Of Prostate (HCC) Other (+) Hematuria OBJECTIVE PHYSICAL EXAMINATION Airway (HEENT) Mallampati: II TM Distance: >3 FB Neck ROM: Full Mouth Opening: >3 cm Upper Lip Bite Test Class: II Facies (pediatrics): normal Cardiovascular Rhythm: Regular Rate: Normal Cardiovascular Assessment: cardiovascular normal Functional Capacity: >4 METS Pulmonary Pulmonary Assessment: Clear General / Constitutional Constitutional Assessment: Normal General State of Health:: healthy appearing and calm Neurological Neurologic Assessment: alert Dental Dental Assessment: dentition intact ASSESSMENT / PLAN ANESTHESIA PLAN ASA: 4 - Emergent Anesthesia Plan: general Patient seen and allergies reviewed; anesthesia plan and risks discussed directly with patient / legal guardian, or through an learning solutions specialist; patient evaluated and approved for anesthesia / [...] CDT Procedure visit Department of Urology in [place], [place] [address] [place] [phone] Sima Venegas M.D. [address] [place] [phone] documented as of this encounter Procedures Procedure Name Priority Date/Time Associated Diagnosis Comments LDA ANE NON-SURGICAL AIRWAY Routine 08/31/2023 12:43 PM CDT documented in this encounter Results * LDA ANE NON-SURGICAL AIRWAY (08/31/2023 12:43 [...] ?? Joe Stoll M.D. ANESTHESIA ORDERA BLES documented in this encounter Visit Diagnoses Not on filedocumented in this encounter Administered Medications Inactive Administered Medications - up to 3 most recent administrations Medication Order MAR Action Action Date Dose Rate Site ceFAZolin injection 2,000 mg (ANCEF) 2,000 mg (rounded from 2,310 mg = 25 mg/kg ? 92.4 kg), intravenous, Once, On Tue08/31/23 at 1200, For 1 dose, Intra-Op, Administer within 1 hour prior to surgical incision If needed, reconstitute vial per package insert instructions. See IVAG for administration guidelines., Drug Monitoring Program: Pharmacist to adjust medication dosing based on indication and drug clearance factors., Indications: Prophylaxis, surgical Given 08/31/2023 12:52 PM CDT 2 g dexAMETHasone injection (DECADRON) intravenous, As needed, Starting on Tue08/31/23 at 1250, Anesthesia Intra-op Given 08/31/2023 12:50 PM CDT 4 mg fentaNYL injection (SUBLIMAZE) intravenous, As needed, Starting on Tue08/31/23 at 1250, Anesthesia Intra-op Given 08/31/2023 1:30 PM CDT 50 mcg Given 08/31/2023 1:14 PM CDT 50 mcg Given 08/31/2023 12:59 PM CDT 50 mcg Lactated Ringer's intravenous, Continuous Infusion: Per Instructions PRN, Starting on Tue08/31/23 at 1235, Anesthesia Intra-op New Bag 08/31/2023 12:35 PM CDT lidocaine (PF) (cardiac) injection intravenous, As needed, Starting on Tue08/31/23 at 1239, Anesthesia Intra-op Given 08/31/2023 12:39 PM CDT 60 mg ondansetron (PF) injection (ZOFRAN) intravenous, As needed, Starting on Tue08/31/23 at 1250, Anesthesia Intra-op Given 08/31/2023 12:50 PM CDT 4 mg phenylephrine injection intravenous, As needed, Starting on Tue08/31/23 at 1259, Anesthesia Intra-op Given 08/31/2023 1:30 PM CDT 200 mcg Given 08/31/2023 1:22 PM CDT 100 mcg Given 08/31/2023 1:16 PM CDT 100 mcg propofoL injection (DIPRIVAN) intravenous, As needed, Starting on Tue08/31/23 at 1240, Anesthesia Intra-op Given 08/31/2023 1:43 PM CDT 40 mg Given 08/31/2023 12:42 PM CDT 50 mg Given 08/31/2023 12:40 PM CDT 50 mg documented in this encounter Care Teams Artist Consultant Relationship Specialty Start Date End Date Elsewhere, Pcp PCP - General Internal Medicine 08/13/23 documented as of this encounter
--- OUTSIDE RECORDS SUMMARY | 2023-09-03 05:35 | XMS_ITS | Encounter Summary ---
Author Organization [facility] Address [address] [place] [address] Care Team Providers Care Labourers Name Role Phone Elsewhere, Pcp Primary Care Provider Unavailabl e Reason for Visit * Reason Comments Urinary Problem Rapid Heart Rate Encounter Details Date Type Department Care Team (Latest Contact Info) Description 08/30/2023 7:35 PM CDT - Present Hospital Encounter [facility], [facility], First Floor [address] [place] [address] Kirstin Hughes M.D. [address] [place] [address] [phone] Mayur Alvarez M.D. [address] [place] [phone] Hematuria (Primary Dx); Tachycardia Social History Tobacco Use Types Packs/Day Years Used Date Smoking Tobacco: Never Smokeless Tobacco: Never [facility] Utilities Answer Date Recorded In the past 12 months has [facility] electric, gas, oil, or water [...] your living situation today? I have a [facility] place to live 08/13/2023 Sex and Gender Information Value Date Recorded Sex Assigned at Not on file Gender Identity Not on file Sexual Orientation Not on file documented as of this encounter Last Filed Vital Signs Vital Sign Reading Time Taken Comments Blood Pressure 151/77 09/03/2023 3:00 AM CDT Pulse 85 09/03/2023 3:00 AM CDT Temperature 36.7 ??C (98.1 ??F) 09/02/2023 10:04 PM C DT Respiratory Rate 17 09/02/2023 10:04 PM CDT Oxygen Saturation 98% 09/03/2023 3:00 AM CDT Inhaled Oxygen Concentration - - Weight - - Height 180.3 cm (5' 11) 08/30/2023 10:55 PM CDT Body Mass Index - - documented in this encounter Discharge Instructions * Patient Instructions* Carmen Louis RJonahN. - 08/31/2023 9:44 AM CDT The Senior LinkAge Line?? is a service of the [place] Board on Aging in partnership with [place] [facility] Agencies on Aging. It is a free service of the [facility] that connects older [place]ans and their families with the help they need. Call the Senior LinkAge Line?? at: [phone] M-F, 8am-4:30pm to connect with specialists that are available to assist you with your specific needsor check out their website at [email or web address] documented in this encounter Progress Notes * [...] questions or concerns. Pager during business hours: [phone] Pager after hours: [phone] * RosmeryMichelle shearer R.N., C.W.C.N. - 09/01/2023 11:43 AM CDT [facility] Wound RN consulted to assess Kalen Vega [...] Secondary Dressing Status Clean;Dry;Intact Changed by Wound paper guillotine operator Ongoing management Nursing;Wound/sys dir Urine Assessment Urine Color Colorless Hematuria Scale [place] Urine Appearance Clear;Sediment Head to toe skin [...] nursing. They agree to the plan. The [facility] RN will continue to see the patient, [...] update the patient. Son stated that a Implementation Lead visited the home and will be trying to assist both and patient with cares/coordination. OBJECTIVE Patient is located on [facility] room 111. Referrals were sent to the following agencies: Home Medical Care - Admitted Since 08/30/2023 Service Provider Request Status Selected Services Address Phone Fax Patient Preferred [facility] [place] Pending - Request Sent N/A [address] [facility] [address], [facility] [phone] -- [facility] - Home Care Pending - Request Sent N/A [address], [facility] [address] [phone] -- Home Health Care Pending - Request Sent N/A [address] [facility] [address], [facility] [address] [phone] -- [facility] Pending - Request Sent N/A [address] [facility] [phone] -- [facility] Pending - [facility] N[facility] [address] [facility] [phone] -- [facility] Pending - Request Sent N/A [address] [facility] [address], [facility] [phone] -- [facility] Declined Facility Full N/A [address] [facility] [phone] -- ASSESSMENT / PLAN ASSESSMENT Document Reviewer attempted to contact patient on room phone but was unable to get through. Case Manageras able to reach his son who will update that patient that the preferred home health agency was unable to accept and that referrals would be sent to other home health agencies. Requested services arenursing for wound care and catheter and PT/OT. PLAN Document Reviewer will follow up with referrals. Case Manger [...] trospium Held Home Meds: Plavix, Xarelto Consults: Laz Hernandez M.D. 09/01/2023 10:45 AM CDT Please page the Urology Chief Service with questions or concerns. Pager during business hours: [phone] Pager after hours: [phone] * Paula Hernandez M.D. - 08/31/2023 10:45 [...] questions or concerns. Pager during business hours: [phone] Pager after hours: [phone] Associated attestation - Mayur Alvarez M.D. - 08/31/2023 12:14 PM CDT I agree with the Urology Chief Service plan for palliative cystoscopy under anesthesia, clot evacuation, proceed as indicated. We will plan for judicious irrigation given his recent bladder surgery and we will perform a cystogram at the end of the procedure. * Demarco Salazar, Mireille.D., R.Ph., BCPS - 08/31/2023 7:19 AM CDT Images from [...] discontinuation of antibiotics. Pedrito Salazar Pharm.D., R.Ph., [facility] Admission Medication History Note Adherence issues: No [...] List Status: Pharmacy/RN Complete Set By: Demarco Salazar, PharmJonahDJonah, R.Ph., BCPS at 08/31/2023 7:22 AM Taking? [...] an 83 y.o. male transferred to the [facility] ED for further management of gross [...] for CBI. He was then transferred to [facility] on 08/12; a CT cystogram was [...] was initiated on CBI and transferred to [facility] for further management. On my initial [...] for radiation proctitis SOCIAL HISTORY Lives in [place], [place] OBJECTIVE Vitals Blood pressure 134/84, pulse [...] & Screen Expiration 09/02/2023 23:59 Testing Location [facility] Imagin08/30/23 EXAM: US URINARY BLADDER COMPARISON: CT [...] hematuria, clot obstruction and was transferred to [facility] for further evaluation and management. Urinary bladder ultrasound showing 5 cm clot burden; catheter draining on fast-rate CBI after multiple rounds of hand irrigation. Plan - Continue CBI - Q2h hr hand irrigations - NPO overnight pending am re-evaluation - Hold Plavix, Xarelto for now The above was discussed with Drs. Venegas and Lefty, the chief urology residents institutional commodity analyst. Please page chief Urology [place] [phone] [place] [phone] afterhours. documented in this encounter Procedure Notes * Leonardo Kellogg, R.N. - 08/30/2023 8:00 PM CDT Procedures documented in this encounter Consult Notes * Kelvin Dunlap M.B.B.S., M.P.H. - 09/01/2023 6:54 AM CDTAssociated Order(s): [...] on androgen deprivation therapy. 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 No scuba diving experience. Electronic health record [...] problem list. OBJECTIVE Vitals: 08/31/23 1800 08/31/23 1900 08/31/23199908/31/23 2240 BP: 149/65 132/66 131/75 131/64 Patient Position: Semi-recumbent Semi-recumbent Semi-recumbent Semi-recumbent Pulse: 84 80 77 79 Heart Rate: Temp: 36.5 ??C 36.8 ??C Resp: 15 16 14 Height: SpO2: 98% 98% 98% [...] prolonged inpatient stay, would request transfer to [facility] prior to initiation of hyperbaric oxygen therapy. 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 Services Used: No Person(s) present during interview: [...] Communication: Can write, Talks, Understands speaking, Understands Slovak, Reads Shopping: Needs assistance Medication Management: Independent Housekeeping: Needs assistance Meal Prep: Independent Assistive Devices: Walker - front wheeled, Eyeglasses, Hearing aid(s) Agency Name: [facility] Provided: Chcf/PT/OT Transportation: Support from family Baseline Services/Resources Primary care clinic and provider: ELSEWHERE, PCP Additional Resources: N/A Anticipated Needs Functional Status: Housekeeping, Shopping, Transportation use (drive car, use taxi/bus), Mobility, Transfer to/from bed, chair, etc., Bathing Assistive Devices: Eyeglasses, Hearing aid(s), Walker - front wheeled Services/Resources: Home health Agency Name: [facility] Provided: Chcf/PT/OT Anticipated Modifications to the Patient's Home: None Transportation Needs: Support from family Does the patient need discharge transport arranged?: No Anticipated Discharge Destination: Home-Health Care [facility] ASSESSMENT / PLAN Assessment: The switchboard inspector met with Kalen Vega to discuss his current hospitalization and home goingneeds. The patient was accompanied by son, Kar . The patient was a reliable historian. The role ofRN Document Reviewer was reviewed. The patient reviewed his prior level of care and support system. The patient receives support from his and children. The patient described his living environment as a home with bedroom and bathroom on same floor withstairs to enter with rails. Housekeeping, grocery shopping, meal prep, and other household responsibilities have previously been completed by patient and patient's son. switchboard inspector discussed the patient's potential needs at dismissal based on their home setting, previous needs and responsibilities, homebound status, and relevant assessments with the patient. The patient will be safe and supported to return home with [facility] or previous services noted above when [...] PICC removal he would not need care. Document Reviewer will clarifywith home health team regarding if [...] chart and meeting with the patient, the switchboard inspector deemed the LACE+/readmission questions were appropriate. The [...] current readmission could have been prevented. The switchboard inspector will share this information with the care team. The patient reports understanding that he will dismiss from the hospital when medically stable. Thefollowing potential barriers to dismissal have been identified: Home Health Care Addendum 1230: Document Reviewer called [facility]. They received the referral but declined due to being at capacity. Plan: The patient agrees with the following plan. Patient's anticipated discharge disposition is: Home with Home Healthcare Referrals sent. Transportation upon dismissal will be provided by family--Kar . switchboard inspector recommended home health services. switchboard inspector provided information regarding the dismissal process and the Senior Linkage Line ([place] Board on Aging) handout. switchboard inspector placed or requested the following hospital-based consult orders and/or referrals: None. switchboard inspector will follow up with the patient to [...] with updates and/or transition plan to come. switchboard inspector encouraged the patient to reach out with any questions/concerns. Care Management will continue to follow. Signed by: Carmen Louis R.N. 08/31/2023 documented in this encounter OR Notes * Op Note - Sima Venegas M.D. 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 5. Placement of [address] catheter with 20 cc in [...] The resectoscope was removed and a [address] catheter was placed with 20 [...] secondary to cystostomy closure presenting today from [facility] with concerns for worsening hematuria. He was [...] outside ED records. ED Course as of 08/30/232209August 30, 20232140 US Urinary Bladder There is a large clot [...] 08/30/2023 8:48 AM CDT Pt transferred from [facility] via EMS, pt c/o blocked jon cath that started today. Pt had a right uretal stent exchange and an open bladder repair 08/15/23 and was discharged 08/25. Pt had a3 way jon placed at [facility], and transferred here because the clots returned. Chelsea Argueta R.N. 08/30/232027 documented in this encounter Plan of Treatment Upcoming Encounters Date Type Department Care Team (Late st Contact Info) Description 09/07/2023 11:00 AM CDT Procedure visit Department of Urology in [place], [place] [address] [place] [address] Sima Venegas M.D. [address] [place] [address] Pending Results Name Type Priority Associated Diagnoses Date /Time Prepare Red Blood Cells, 1 Units Blood Bank Routine 08/30/2023 9:50 PM CDT Scheduled Orders Name Type Priority Associated Diagnoses Order Schedule Adult Oxygen Therapy Continuous (RT) Respiratory Care Routine respiratory use ftth-[id number]-cnyd reminder at 8am and 8pm until discontinued [...] Heparin Anti-Xa Assay (09/03/2023 3:29 AM CDT) Heparin Anti-Xa, P 0.26 IU/mL 2023 4:07 [...] Alvarez M.D. LAB BLOOD NON A DD-ON [address] [address], [facility] [place] [address] * (ABNORMAL) CBC without Differential (09/03/2023 3:29 AM CDT) [facility] Hemoglobin 8.0(L) 13.2 - 16.6 g/dL 09/03/2023 [...] M.D. LAB BLOOD ADD-ON Performing Organization Address [facility] Co de Phone Number [facility] [address] [place] [address], [facility] [address] [place] [address] * Heparin Anti-Xa Assay (09/02/2023 2:57 AM [...] 2:57 AM CDT 09/02/2023 3:42 AM CDT Mayur Alvarez M.D. LAB BLOOD NON A DD-ON Performing Organization Address City/[facility] Co de Phone Number [facility] [address] [place] [address], [facility] [address] [place] [address] * (ABNORMAL) CBC without Differential (09/01/2023 8:16 [...] CDT Paula Hernandez M.D. [place] [address], [facility] [place] [address] * Heparin Anti-Xa Assay (09/01/2023 6:50 PM CDT) [facility] Heparin Anti-Xa, P 0.35 IU/mL 2023 7:47 [...] BLOOD NON A DD-ON Performing Organization Address [facility]/ZIP Co de Phone Number [facility] [address] [place] [address], [facility] DTL [facility] [address] [place] [address] * APTT (Activated Partial Thromboplastin Time) (09/01/2023 9:05 AM CDT) Pathologist [facility] Activated Partial Thrombopl Time, P 28 25 - 37 sec 09/01/2023 9:35 AM CDT STMA Blood (Blood, Venous) 09/01/2023 9:05 AM CDT 09/01/2023 9:21 AM CDT Paula Hernandez M.D. LAB BLOOD ADD-ON Performing Organization Address [facility] Co de Phone Number [facility] [address] [place] [address], [facility] STMA [facility] [address] [place] [address] * (ABNORMAL) Basic Metabolic Panel (08/31/2023 9:36 PM CDT) [facility] Potassium, S 4.0 3.6 - 5.2 [...] CDT Paula Hernandez M.D. LAB BLOOD ADD-ON [facility] [address] [place] [address], [facility] [address] [place] [address] * (ABNORMAL) CBC without Differential (08/31/2023 9:36 [...] CDT Paula Hernandez M.D. LAB BLOOD ADD-ON [facility] [address] [place] [address], [place] DTL [facility] [address] [place] [address] * [place] Fluoro Less Than 1 Hour [...] * (ABNORMAL) Hemoglobin (08/31/2023 4:21 AM CDT) Pathologist [facility] Hemoglobin 7.8(L) 13.2 - 16.6 g/dL 08/31/2023 4:47 AM CDT DTL Blood (Blood, Venous) 08/31/2023 4:21 AM CDT 08/31/2023 4:35 AM CDT Kimi Vieira M.D., M.S. LAB BLOO D ADD-ON [facility] [address] [place] [address], [facility] [address] [place] [address] * Type and Screen (with Reflex Antibody ID) (08/30/2023 9:50 PM CDT) Pathologist [facility] ABORh O Pos Not applicable 08/30/2023 10:17 PM CDT STRM Antibody Screen Negative Negative 08/30/2023 10:31 PM CDT STRM Type & Screen Expiration 09/02/2023 23:59 08/30/2023 10:17 PM CDT STRM Testing Location Marcio DEFAULT 08/30/2023 9:58 PM CDT STRM Blood (Blood, Venous) 08/30/2023 9:50 PM CDT 08/30/2023 9:58 PM CDT Shannan Correa D.O., M.H.A. LAB BLOOD BANK TEST ORDERABLES [facility] [address] [place] [address], [facility] STRM [facility] [address] [place] [address] * Lactate (08/30/2023 9:50 PM CDT) Lactate, P 1.8 0.5 - 2.2 mmol/L 08/30/2023 10:09 PM CDT STMA Blood (Blood, Venous) 08/30/2023 9:50 PM CDT 08/30/2023 9:55 PM CDT Shannan Correa D.O., M.H.A. LAB BLOOD NON ADD-ON [facility] [address] [place] [address], [facility] STMA [facility] [address] [place] [address] * (ABNORMAL) Basic Metabolic Panel (08/30/2023 9:49 [...] Correa D.O., M.H.A. LAB BLOOD ADD- ON [place] [address] [place] [address], [facility] [address] [place] [address] * (ABNORMAL) CBC with Differential, Blood (08/30/2023 [...] Correa D.O., M.H.A. LAB BLOOD ADD- ON [facility] [address] [place] [address], [facility] STMA [facility] [address] [place] [address] DHPM [facility] [address] [place] [address] * DX Chest AP or PA and [...] to haveinternal vascularity. Indwelling Jon catheter. Shannan Correa D.O., M.H.A. IMG US PROCEDU RES * ECG 12 Lead (08/30/2023 7:44 PM CDT) Ventricular Rate ECG/Min 145 BPM MUSE KS Interval 136 ms MUSE QRSD Interval 64 ms MUSE QT Interval 260 ms MUSE QTC Interval 403 ms MUSE P [place] 44 degrees MUSE R [place] 9 degrees MUSE T Wave [place] -76 degrees MUSE 08/30/2023 7:44 PM CDT [...] Diagnosis Hematuria- Primary Hematuria Tachycardia Hematuria Gross documented in this encounter Admitting Diagnoses Diagnosis [...] kg (0-27.72 mL/hr), intravenous, Continuous, Starting on Nani 09/01/23 at 0915, 25,000 Units in 250 mL, [...] IRRIGATION ONLY, NOT FOR IV USE New 09/01/2023 4:33 PM CDT 3,000 mL New 09/01/2023 2:05 AM CDT 3,000 mL New 08/30/2023 10:13 PM CDT 3,000 mL NaCl 0.9 % irrigation solution 3,000 mL 3,000 mL, irrigation, Continuous, Starting on Tue08/30/23 at 2213, FOR BLADDER IRRIGATION ONLY, NOT FOR IV USE New Bag 09/01/2023 8:01 AM CDT 3,000 mL New 08/31/2023 6:11 PM CDT 3,000 mL New 08/31/2023 5:21 PM CDT 3,000 mL oxyCODONE [...] mg (TYLENOL) 1,000 mg, oral, Once, On Tue08/31/23 at 1230, For 1 dose, Pre-Op, PreOp give in preprocedural area. Given 08/31/2023 12:07 PM CDT 1,000 mg cefTRIAXone in dextrose (iso osm) IVPB 1 g (ROCEPHIN) 1 g, intravenous, at 200 mL/hr, Administer over 15 Minutes, Every 24 hours, First dose on Tue08/30/23 at 2300, Drug Monitoring Program: Pharmacist to adjust medication dosing based on indication and drug clearance factors., Indications: Prophylaxis, surgical New Bag 09/01/2023 10:12 PM CDT 1 g 200 mL/hr New Bag 08/31/2023 10:00 PM CDT 1 g 200 mL/hr New 08/31/2023 12:10 AM CDT 1 g 200 mL/hr iohexol dilution solution 7,500 mg (OMNIPAQUE) 7,500 mg, intravesical, Once in imaging, contrast, Starting on Tue08/31/23 at 1055, For 1 dose, Imaging Protocol Orders, Dose of 7,500 mg iodine will display as 25 mL of 300 mg iodine/mL contrast for billing. Mix iohexol 300 (Omnipaque?? 300) 25 mL with 250 mL NaCl 0.9% for a total volume of 275 mLs. Procedure requires 2 bags (i.e. 2 orders). Given 08/31/2023 10:55 AM CDT 7,500 mg Lactated Ringer's 100 mL/hr, intravenous, Continuous, Starting on Tue08/30/23 at 2300 08/30/2023 10:57 PM CDT 100 mL/hr 100 mL/hr metoprolol succinate 24 hr tablet 50 mg (TOPROL-XL) 50 mg, oral, Once, On Tue08/30/23 at 2001, For 1 dose, Do NOT crush or chew. Tablet may be split on score if needed. Given 08/30/2023 8:07 PM CDT 50 mg NaCl 0.9 % bolus 500 mL 500 mL, intravenous, at 500 mL/hr, Administer over 1 Hours, Once, On Tue08/30/23 at 2013, For 1 dose New 08/30/2023 8:49 PM CDT 500 mL 500 mL/hr NaCl 0.9 % bolus 500 mL 500 mL, intravenous, at 500 mL/hr, Administer over 1 Hours, Once, On Tue08/30/23 at 2142, For 1 dose New 08/30/2023 9:51 PM CDT 500 mL 500 mL/hr documented in this encounter Active and [...] 0929 (Given - Provider: Sarah Morgan R.N.) 0900 (Due) metoprolol succinate 24 hr tablet 50 mg (TOPROL-XL) 50 mg, oral, Daily, First dose on Tue08/31/23 at 0900, Do NOT crush or chew. Tablet may be split on score if needed. 0844 (Given - Provider: Sergio Martinez R.N.) 0930 (Given - Provider: Sarah Morgan R.N.) 0900 (Due) mirabegron 24 hr tablet 50 mg (MYRBETRIQ) 50 mg, oral, Daily, First dose on Tue08/31/23 at 0900, Swallow whole. Do NOT crush, chew, or split tablet. 0845 (Given - Provider: Sergio Martinez R.N.) 0930 (Given - Provider: Sarah Morgan R.N.) 899 (Due) rosuvastatin tablet 40 mg (CRESTOR) 40 mg, oral, Daily, First dose on Tue08/31/23 at 0900 0842 (Given - Provider: Sergio Martinez R.N.) 0930 (Given - Provider: Sarah Morgan R.N.) 899 (Due) sennosides-docusate sodium 8.6-50 mg per tablet 1 tablet (SENOKOT-S) 1 tablet, oral, 2 times daily, First dose on Tue08/31/23 at 0900, Do not give if patient has diarrhea. 0842 (Given - Provider: Sergio Martinez R.N.)2021 (Given - Provider: Denise Munoz R.N.) 929 (Given - Provider: Sarah Morgan R.N.)2010 (Given - Provider: Brittni Howe R.N.) 899 (Due)2099 (Due) sodium chloride 0.9 % injection [...] 1142 (New Bag - Provider: Sergio Martinez RJonahN.)1532 (Handoff - Provider: Sergio Martinez RNarendra - Comment: verified by Dylan)2102 (Rate/Dose Change - Provider: Denise Munoz R.N.)2338 (Handoff - Provider: Denise Munoz R.N.) 0409 (Rate/Dose Change - Provider: Komal Morin R.N.)0723 (Handoff - Provider: Komal Morin R.N.)1030 (New Bag - Provider: Sarah Morgan R.N.)1926 (Handoff - Provider: Brittni Howe RJonahNJonah) 0417 (Rate/Dose Change - Provider: Brittni Howe R.N.) Lactated Ringer's 50 mL/hr, intravenous, Continuous, Starting on Tue08/31/23 at 1400, PACU & Post-Op 1150 (Stopped - Provider: Sergio Martinez R.N.)1604 (New Bag - Provider: Denise Munoz R.N.) 1208 (New Bag - Provider: Sarah Morgan R.N.) NaCl 0.9 % irrigation solution 3,000 mL [...] 1-3 of 10, Starting on Tue08/30/23 at 223, For mild pain, give acetaminophen before tramadol. 221 (Given - Provider: Denise Munoz R.N.) alum-mag hydroxide-simeth 200-200-20 mg/5 mL suspension 30 mL (Maalox) 30 mL, oral, 4 times daily PRN, indigestion, Starting on Tue08/30/23 at 2239 bacitracin 500 unit/gram ointment 1 Application 1 Application, topical, 4 times daily PRN, catheter irritaiton, Starting on Tue08/30/23 at 2235, Apply to tip of penis as needed for catheter irritation benzocaine-menthoL 15-3.6 mg per lozenge 1 lozenge (CEPACOL) 1 lozenge, oral, As needed, sore throat, Starting on Tue08/30/23 at 2239 bisacodyL suppository 10 mg (DULCOLAX) 10 mg, rectal, Daily PRN, constipation, Starting on Tue08/30/23 at 2239, Ordered sequence of administration: polyethylene glycol, then bisacodyl until BM achieved. naloxone injection 0.2 mg (NARCAN) 0.2 mg, intravenous, As needed, respiratory depression, Starting on Tue08/30/23 at 2236, For RASS Score -4 or less, respiratory rate of less than 8 breaths/min. Notify provider/service and rapid response team (if available at institution). ondansetron (PF) injection 4 mg (ZOFRAN) 4 mg, intravenous, Every 6 hours PRN, nausea, vomiting, Starting on Tue08/30/23 at 2239 oxyCODONE IR tablet 2.5 mg (ROXICODONE)(Linked Group [...] are ineffective, Starting on Tue08/30/23 at 2256 polyethylene glycol powder packet 17 g (MIRALAX) 17 g, oral, Daily PRN, constipation, Starting on Tue08/30/23 at 2239, Ordered sequence of administration: polyethylene glycol, then bisacodyl until BM achieved. Avoid mixing with starch-based thickened liquids. sodium chloride 0.9 % injection 10 mL 10 mL, intravenous, As needed, line care, Starting on Tue08/30/23 at 2236, Peripheral Intravenous Catheter and Rapid Infusion Catheter, prior to blood sampling, post blood transfusion or post blood sampling sodium chloride 0.9 % injection 3 mL 3 mL, intravenous, As needed, line care, Starting on Tue08/30/23 at 223, Prior to and following infusion and between [...] 2256 documented in this encounter Care Teams Labourers Relationship Specialty Start Date End Date Elsewhere, Pcp PCP - General Internal Medicine 08/13/23 documented as of this encounter
--- OUTSIDE RECORDS SUMMARY | 2023-09-03 05:35 | XMS_ITS | Encounter Summary ---
Author Organization [facility] Address [address] [place] [address] Care Team Providers Care Boiler Installer Name Role Phone Elsewhere, Pcp Primary Care Provider Unavailabl e Reason for Referral * Outpatient (Routine) - Authorized Specialty Diagnoses / Procedures Referred By Leyla t Referred To Contact Urology Paula Hernandez M.D. [address] [place] [address] URO CHIEF RESIDENT [facility] Referral ID Status Reason Start Date Expiration Date V isits Requested Visits Authorized [id number] Authorized 08/26/2023 02/24/2025 1 1 Scheduling Instructions staple removal SMOP w tonie or jason Encounter Details Date Type Department Care Team (Late st Contact Info) Description 08/26/2023 Orders Only Department of Urology in [place], [place] [address] [place] [address] Paula Hernandez M.D. [address] [place] [phone] Social History Tobacco Use Types Packs/Day Years Used Date Smoking Tobacco: Never Smokeless Tobacco: Never [facility] Utilities Answer Date Recorded In the past 12 months has [facility] electric, gas, oil, or water company [...] CDT Procedure visit Department of Urology in [place], [place] [address] [place] [address] Jason Venegas M.D. [address] [place] [address] Scheduled Referrals Name Type Priority Associated Diagnoses Orde r Schedule Urology office visit (clinic) Outpatient Referral Routine Expected: 09/09/2023, Expires: 11/25/2024 documented as of this encounter Visit Diagnoses Not on filedocumented in this encounter Care Teams Boiler Installer Relationship Specialty Start Date End Date Elsewhere, Pcp PCP - General Internal Medicine 08/13/23 documented as of this encounter
--- OUTSIDE RECORDS SUMMARY | 2023-09-03 05:35 | XMS_ITS | Encounter Summary ---
Author Organization [facility] Address [address] [place] [address] Care Team Providers Care Dry Color Mixer Name Role Phone Elsewhere, Pcp Primary Care Provider Unavailabl e Encounter Details Date Type Department Care Team (Late st Contact Info) Description 08/30/2023 Documentation Department of Urology in [place], [place] [address] [place] [address] Corin Ring M.D. [address] [place] [address] Social History Tobacco Use Types Packs/Day Years Used Date Smoking Tobacco: Never Smokeless Tobacco: Never [facility] Utilities Answer Date Recorded In the past 12 months has [facility] electric, gas, oil, or water [...] your living situation today? I have a [facility] place to live 08/13/2023 Sex and Gender Information Value Date Recorded Sex Assigned at Not on file Gender Identity Not on file Sexual Orientation Not on file documented as of this encounter Plan of Treatment Upcoming Encounters Date Type Department Care Team (Late st Contact Info) Description 09/07/2023 11:00 AM CDT Procedure visit Department of Urology in [place], [place] [address] [place] [address] Sima Venegas M.D. [address] [place] [address] documented as of this encounter Visit Diagnoses Not on filedocumented in this encounter Care Teams Dry Color Mixer Relationship Specialty Start Date End Date Elsewhere, Pcp PCP - General Internal Medicine 08/13/23 documented as of this encounter
--- OUTSIDE RECORDS SUMMARY | 2023-09-03 05:35 | XMS_ITS | Encounter Summary ---
Author Organization [facility] Address [address] [place] [address] Care Team Providers Care Bookmaker Map Name Role Phone Elsewhere, Pcp Primary Care Provider Unavailabl e Encounter Details Date Type Department Care Team (Latest Contact Info) Description 08/30/2023 Intake [facility] Social History Tobacco Use Types Packs/Day Years Used Date Smoking Tobacco: Never Smokeless Tobacco: Never [facility] Utilities Answer Date Recorded In the past 12 months has [facility] electric, gas, oil, or water company [...] your living situation today? I have a [facility] place to live 08/13/2023 Sex and Gender Information Value Date Recorded Sex Assigned at Not on file Gender Identity Not on file Sexual Orientation Not on file documented as of this encounter Plan of Treatment Upcoming Encounters Date Type Department Care Team (Late st Contact Info) Description 09/07/2023 11:00 AM CDT Procedure visit Department of Urology in [place], [place] [address] [place] [address] Sima Venegas M.D. [address] [place] [address] documented as of this encounter Visit Diagnoses Not on filedocumented in this encounter Care Teams Bookmaker Map Relationship Specialty Start Date End Date Elsewhere, Pcp PCP - General Internal Medicine 08/13/23 documented as of this encounter
--- OUTSIDE RECORDS SUMMARY | 2023-09-03 05:36 | XMS_ITS | Encounter Summary ---
Author Organization [facility] Address [address] [place] [address] Care Team Providers Care Substation Electrician Supervisor Name Role Phone Elsewhere, Pcp Primary Care Provider Unavailabl e Reason for Referral * Outpatient (Routine) - Authorized Specialty Diagnoses / Procedures Referred By Contac t Referred To Contact Diagnoses Hematuria Procedures URO Urethral cath removal & voiding trial (UCO/VT) Paula Hernandez M.D. [address] [place] [address] [facility] Referral ID Status Reason Start Date Expiration Date V isits Requested Visits Authorized [id number] Authorized 08/26/2023 08/25/2024 1 1 * Outpatient (Routine) - Authorized Specialty Diagnoses / Procedures Referred By Contac t Referred To Contact Diagnoses Hematuria Procedures Cystogram URO Paula Hernandez M.D. [address] [place] [address] [facility] Referral ID Status Reason Start Date Expiration Date V isits Requested Visits Authorized [id number] Authorized 08/26/2023 08/25/2024 1 1 Encounter Details Date Type Department Care Team (Latest Contact Info) Description 08/13/2023 3:42 PM CDT - 08/26/2023 4:11 PM CDT Hospital Encounter [facility], [facility], [facility], Sixth Floor [address] [place] [id number] Darnell Garcia M.D. [address] [place] [address] Boubacar Brock M.D. [address] [place] [phone] Decline Functional Status [R53.81] (Primary Dx); Hematuria [R31.9] Discharge Disposition: Home or Self Care Social History Tobacco Use Types Packs/Day Years Used Date Smoking Tobacco: Never Smokeless Tobacco: Never [facility] [employer]rapeuticsities Answer Date Recorded In the past 12 months has [facility] electric, gas, oil, or water [employer] threatened to shut off services in your [...] your living situation today? I have a [facility] place to live 08/13/2023 Sex and [...] AM CDT DISCHARGE SUMMARY BRIEF OVERVIEW Hospital: [facility] Discharge Provider: Boubacar Brock M.D. Primary Team: T Urology Surgery - Chief Helga Rojas Primary [...] FOLLOW UP Scheduled Appointments 08/26/2023 1:00 PM KESHIA RITO [facility] Radiology For appointment details refer to your [...] he felt completely obstructed and presented to [facility]. [facility] Attempted Tabares insertion but bladder irrigation was unsuccessful on multiple attempts. Hung 1U pRBC's. Given some volume and transferred to [facility] ICU ICU Course Urology consulted and were [...] CONSULT TO NUTRITION SUPPORT IP CONSULT TO PLAYGROUND EQUIPMENT ERECTOR WOUND CARE CONDITION AT DISCHARGE stable Discharge [...] he felt completely obstructed and presented to [facility]. [facility] Attempted Tabares insertion but bladder irrigation was unsuccessful on multiple attempts. Hung 1U pRBC's. Given some volume and transferred to [facility] ICU ICU Course Urology consulted and were [...] PM CDT You were discharged from the [facility] Urology Surgery - Chief A - Blue Service. Please identify this service name if you call with questions after hospitalization. * Attachments The following attachments cannot be sent through Care Everywhere. * Bacitracin (On the skin) (Haitian) * Cefdinir (By mouth) (Haitian) * Trospium (By mouth) (Haitian) documented in this encounter Medications at Time of Discharge Medication Sig Dispensed Refills Start Date End Date amLODIPine (NORVASC) 10 mg tablet Take 10 mg by mouth daily. 01/11/2020 cefdinir (OMNICEF) 300 mg capsule Take 1 capsule (300 mg total) by mouth 2 (two) times a day before breakfast and dinner for 2 days. Then take 1 capsule 2 times a day before breakfast and dinner for 3 days the day before, day of, day after catheter removal. 10 capsule 08/26/2023 08/31/2023 clopidogreL (PLAVIX) 75 mg tablet Take 75 mg by mouth daily. 12/27/2019 coenzyme Q10 (CO Q-10) 200 mg capsule Take 200 mg by mouth daily. enzalutamide (XTANDI) 40 mg capsule Take 120 mg by mouth daily. Take with or without food at the same time each day. Swallow it whole. metoprolol succinate (TOPROL-XL) 50 mg 24 hr tablet Take 50 mg by mouth daily. 11/02/2019 mirabegron (MYRBETRIQ) 50 mg 24 hr tablet Take 50 mg by mouth daily. rosuvastatin (CRESTOR) 40 mg tablet Take 40 [...] tablet Take 10 mg by mouth daily. bacitracin 500 unit/gram ointment Apply 1 Application topically 4 (four) times a day as needed (catheter irritaiton). Apply to tip of penis as needed for catheter irritation. 30 g 08/26/2023 cholecalciferol (Vitamin D3) 50 mcg (2,000 Unit) tablet Take 50 mcg by mouth daily. iron,carbonyl-vitamin C (VITRON-C) 65 mg iron- [address] tablet Take 65 mg of iron by mouth daily. Do not crush or chew. nitroglycerin (NITROSTAT) 0.[address] 0.4 mg under the tongue. 11/02/2019 documented as of this encounter Progress Notes * Emeterio Buchanan PMarlon., D.P.TJonah, GCS - 08/26/2023 4:27 PM CDT 08/26/23 1627 Reason Therapy Missed Reason Therapy Missed Receiving other care Attempted to see patient twice today. On 1st attempt patient was receiving blood transfusion and RNwas working on completing cares with him. On 2nd attempt patient was with another provider. * Chary Diamond M.A., O.T., [facility] - 08/26/2023 10:21 AM CDT Occupational Therapy [facility] Inpatient Treatment SUBJECTIVE Patient's Name: Kalen Vega Referring/Attending Provider: Boubacar Brock M.D. Reason for Referral: Occupational Therapy Evaluation and Treatment History of Present Illness: Kalen Vega is a 83 y.o. male who was admitted to [facility] in [place] on 08/13/2023 for Hematuria [R31.9]. Precautions Other Precautions: Abdominal, fall precautions, monitor tachycardia and hypertension Pain Assessment: Pain not reported during session. Subjective Comments: Agreeable to therapy session. Team Communication: The patient's status was discussed and coordination of care occurred with RN, Family/Caregiver, nurse tech Family/Caregiver Present: son and [id number]-fet OBJECTIVE Vital Signs: Vitals not formally assessed during session. No concerns during chart review and the patient had nosigns or symptoms consistent with vital changes during therapy session. Outcome Measures: -[facility] Inpatient Short Form: Putting on and taking [...] at or below 17 Clinicians answer the -[facility] Inpatient Short Form based on observed patient [...] through pant leg first. - Adaptive Equipment: Instrumentation Instructor TOILETING - Assist Level: Maximal Assist - [...] (Edge of bed) - Assist Level: Modified Patrick - Equipment: bed rail - Therapist Delivery: assessed, instructed, assisted - Adaptive Equipment: leg application integration specialist trialed ; however, patient able to move [...] extremity (stiff knee) first. Recommended adaptive equipment: Instrumentation Instructor. Toileting - Patient instructed on accurate positioning [...] maximal exertion Handouts provided: Bathroom Safety Equipment [id number], Techniques to Help You Save Energy [id number] Patient was left in bedside chair with [...] have / supervision from family if necessary. Recommended Adaptive [...] Usama 6C -room 121 ASSESSMENT / PLAN INDUSTRIAL DIAMOND POLISHERrig manager met with patient and son Kar to inform them of home health care acceptance for PT/OT. Patient's son Kar and [id number] will provide transportation at the time of discharge. PLAN Patient to discharge home with home health care. Home Medical Care - Admitted Since 08/13/2023 Service Provider Selected Services Address Phone Fax Patient Preferred [facility] [address] [facility] [phone] -- Cold Working Inspector: Ghazal NURSING: - Complete documentation in the [...] be provided by family--patient's son Kar and [id number]-rpa. 3. finish repairer recommended reaching out to family, friends, and neighbors for assistance. 4. finish repairer provided information regarding the dismissal process. Damaris [...] Reviewed with patient #1 Hematuria Please page [facility] ([phone]) or [facility] ([phone]) Nutrition Support Service pager with questions. * Emeterio Buchanan, P.T., D.P.T., [facility] - 08/25/2023 9:35 AM CDT Physical Therapy Inpatient Treatment SUBJECTIVE Patient's Name: Kalen Vega Referring/Attending Provider: Boubacar Brock M.D. Reason for Referral: Physical Therapy Evaluate and Treat History of Present Illness: Kalen Vega is a 83 y.o. male who was admitted to [facility] in [place] on 08/13/2023 for Hematuria [R31.9] Precautions Other [...] 3-5 steps with a railing?: A Little -[facility] Basic Mobility (V.2) Raw Score: 18 -[facility] Basic Mobility (V.2) Standardized Score: 41.05 Interpretation: Based on scoring guidelines using the raw score value: Those going to home had an average score at or above 18 Those going to facility had an average score at or below 17 Clinicians answer the -[facility] Inpatient Short Form based on observed patient activity and/or clinical judgement (ie. patient can be scored without physically performing each activity) Therapeutic Interventions: SIT TO STAND x3: Assistance Level: Supervision static safe house fit with adult there which they usually [employer] with a difference educated fully know who [...] - 08/25/2023 9:18 AM CDT Occupational Therapy [facility] Inpatient Treatment SUBJECTIVE Patient's Name: Kalen Vega Referring/Attending Provider: Boubacar Brock M.D. Reason for Referral: Occupational Therapy Evaluation and Treatment History of Present Illness: Kalen Vega is a 83 y.o. male who was admitted to [facility] in [place] on 08/13/2023 for Hematuria [R31.9]. Precautions Other Precautions: Abdominal, fall precautions, monitor tachycardia and hypertension Pain Assessment: Pain not reported during session. Subjective Comments: Agreeable to therapy session. Team Communication: The patient's status was discussed and coordination of care occurred with RN, PT OBJECTIVE Vital Signs: Vitals monitored throughout session; within normal ranges. Outcome Measures: [facility] Inpatient Short Form: Putting on and [...] including figure four technique. Recommended adaptive equipment: Instrumentation Instructor and Sock Aid. Toileting - Patient instructed [...] and modification tools as needed including leg application integration specialist and/or bed adjustments. Bathroom DME: - Educated [...] in place draining clear yellow urine I/O ([id number]): Fifty-five cc serosanguineous from the drain 1 [...] locallyfor CBI. He was subsequently transferred to [facility] 08/12 for difficulty irrigating his catheter despite [...] 2.5 mg BID eliquis initiated 08/15 [facility] med curbside recs --transition from eliquis [...] have him follow up with his local sap trainer Comorbidities: --history of DVT status post IVC [...] Meds: None Consults: TPN, KESHIA Hernandez M.D. 08/25/2023 Please page the Urology Chief Service with questions or concerns. Patient seen and discussed with Dr. Venegas, chief urology resident books salesperson. Pager during business hours: [phone] Pager after hours: [phone] * Emeterio Buchanan PCarlos, D.P.T., [facility] - 08/24/2023 10:46 AM CDT Physical Therapy Inpatient Treatment SUBJECTIVE Patient's Name: Kalen Vega Referring/Attending Provider: Boubacar Brock M.D. Reason for Referral: Physical Therapy Evaluate and Treat History of Present Illness: Kalen Vega is a 83 y.o. male who was admitted to [facility] in [place] on 08/13/2023 for Hematuria [R31.9] Precautions Other [...] 3-5 steps with a railing?: A Lot -[facility] Basic Mobility (V.2) Raw Score: 17 -[facility] Basic Mobility (V.2) Standardized Score: 39.67 Interpretation: Based on scoring guidelines using the raw score value: Those going to home had an average score at or above 18 Those going to facility had an average score at or below 17 Clinicians answer the [facility] Inpatient Short Form based on observed [...] baseline. PT Goal #2: Patient will perform jbx-pv-tfsga transfer with modified independence and least restrictive [...] Buchanan P.T., D.P.T., GCS * Tayler Mckeon Pharm.DJonah, R.Ph. - 08/24/2023 10:00 AM CDT Pharmacist [...] Total Kcal/day: 1370 based on 84 % Garcia-Hanover Non-standard additives: K 80 mEq Phos 30 [...] magnesium, phosphorus tomorrow. #1 Hematuria Please page [facility] ([phone]) or [facility] ([phone]) Nutrition Support Service pager with questions. * [...] catheter in place draining light smith I/O ([id number]): Forty-two cc serosanguineous from the drain 2.2 [...] locallyfor CBI. He was subsequently transferred to [facility] 08/12 for difficulty irrigating his catheter despite [...] 2.5 mg BID eliquis initiated 08/15 per [facility] med curbside recs --transition from eliquis [...] have him follow up with his local sap trainer Comorbidities: --history of DVT status post IVC [...] discussed with Dr. Venegas, chief urology resident books salesperson. Pager during business hours: [phone] Pager after hours: [phone] * Deanne Mike L.G.S.W., M.S.W. - 08/23/2023 11:25 AM CDT SUBJECTIVE Social Work spoke with [facility]. They cannot provide prison at this [...] anticipated discharge date of 08/24/23-08/26/23. Referrals sent: [facility] - DECLINED (out of service area) [facility] Health ASSESSMENT / PLAN ASSESSMENT Patient has robust family support including a son living with him. PLAN Patient desires home health care through [facility]. Social Work will continue to follow to provide support. Social Work will continue to assist with discharge needs. Shorty Sun, M.S.W. 08/23/23 * Jazmine Benítez, Lucas, C.W.C.N. - 08/23/2023 11:10 AM CDT [facility] Wound RN consulted to assess Kalen Vega [...] stent and hematuria who is transferred from [facility] ED with 3 days of hematuria and [...] None Unable to Measure Y *Wound Bed Closed;Olin;Red Tissue Exposed None Odor None *Exudate Amount [...] 30 minutes > 30 minutes Ongoing management Nursing;Wound/electrician helper powerhouse Partial head to toe skin assessment completed [...] concerns. Electronically signed by: Jazmine Benítez R.N., C.W.C.N. 08/23/23 11:10 AM CDT * Emeterio Buchanan, P.T., D.P.T., [facility] - 08/23/2023 11:02 AM CDT Physical Therapy Inpatient Treatment SUBJECTIVE Patient's Name: Kalen Vega Referring/Attending Provider: Boubacar Brock M.D. Reason for Referral: Physical Therapy Evaluate and Treat History of Present Illness: Kalen Vega is a 83 y.o. male who was admitted to [facility] in [place] on 08/13/2023 for Hematuria [R31.9] Precautions Other [...] and O2 flow: Room air Outcome Measures: [facility] Inpatient Short Form: -[facility] Basic Mobility (V.2) How much help from [...] 3-5 steps with a railing?: A Lot -[facility] Basic Mobility (V.2) Raw Score: 17 AM-[facility] Basic Mobility (V.2) Standardized Score: 39.67 Interpretation: Based on scoring guidelines using the raw score value: Those going to home had an average score at or above 18 Those going to facility had an average score at or below 17 Clinicians answer the -[facility] Inpatient Short Form based on observed patient [...] baseline. PT Goal #2: Patient will perform zks-yo-gpivd transfer with modified independence and least restrictive [...] D.P.T., GCS * Demarco Salazar Pharm.D., R.Ph., [facility] - 08/23/2023 10:19 AM CDT Pharmacist [...] Total Kcal/day: 1370 based on 84 % Garcia-Hanover Non-standard additives: MAX chloride Thiamine 100 mg [...] magnesium, phosphorus tomorrow. #1 Hematuria Please page [facility] ([phone]) or [facility] ([phone]) Nutrition Support Service pager with questions. * Ivy Hernandez O.T. - 08/23/2023 8:30 AM CDT Occupational Therapy [facility] Inpatient Treatment SUBJECTIVE Patient's Name: Kalen Vega Referring/Attending Provider: Boubacar Brock M.D. Reason for Referral: Occupational Therapy Evaluation and Treatment History of Present Illness: Kalen Vega is a 83 y.o. male who was admitted to [facility] in [place] on 08/13/2023 for Hematuria [R31.9]. Precautions Other [...] at or below 17 Clinicians answer the -[facility] Inpatient Short Form based on observed patient [...] catheter in place draining clear yellow I/O ([id number]): 73 cc serosanguineous from the drain Seven [...] locallyfor CBI. 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 [facility] Summary: Diet: NPO, TPN Activity: [...] discussed with Dr. Venegas, chief urology resident books salesperson. Pager during business hours: [phone] Pager after hours: [phone] * Chayr Diamond M.A., O.T., BCP - 08/22/2023 4:19 PM CDT 08/22/23 8088 Reason Therapy Missed Reason Therapy Missed Receiving [...] OBJECTIVE Patient is anticipated to remain at [place] for 3-5 days. Referrals sent: [facility] Health ASSESSMENT / PLAN ASSESSMENT Patient has robust family support including a son living with him. PLAN Patient desires home health care through [facility]. Social Work will continue to follow to provide support. Social Work will continue to assist with discharge needs. Shorty Sun, M.S.W. 08/22/23 * Emeterio Buchanan P.T., D.P.T., [facility] - 08/22/2023 2:27 PM CDT Physical Therapy Inpatient Treatment SUBJECTIVE Patient's Name: Kalen Vega Referring/Attending Provider: Boubacar Brock M.D. Reason for Referral: Physical Therapy Evaluate and Treat History of Present Illness: Kalen Vega is a 83 y.o. male who was admitted to [facility] in [place] on 08/13/2023 for Hematuria [R31.9] Precautions Other [...] hypotension or respiratory distress. . Outcome Measures: [facility] Inpatient Short Form: -[facility] Basic Mobility (V.2) How much help from [...] 3-5 steps with a railing?: A Lot -[facility] Basic Mobility (V.2) Raw Score: 17 -[facility] Basic Mobility (V.2) Standardized Score: 39.67 Interpretation: Based on scoring guidelines using the raw score value: Those going to home had an average score at or above 18 Those going to facility had an average score at or below 17 Clinicians answer the [facility] Inpatient Short Form based on observed [...] baseline. PT Goal #2: Patient will perform ldm-vm-hplvv transfer with modified independence and least restrictive [...] Buchanan P.T., D.P.T., GCS * Demarco Salazar PharmJonahDJonah, R.Ph., [facility] - 08/22/2023 10:57 AM CDT Pharmacist [...] Total Kcal/day: 1370 based on 84 % Garcia-Hanover Non-standard additives: MAX chloride Thiamine 100 mg [...] stop at the time of PN initiation tonharish. Pedrito Salazar Pharm.D., R.Ph., BCPS * Paula [...] place draining light smith colored urine I/O ([id number]): CBI on slow drip 75 cc serosanguineous [...] locallyfor CBI. He was subsequently transferred to [facility] 08/12 for difficulty irrigating his catheter despite [...] 2.5 mg BID eliquis initiated 08/[facility] curbside recs --transition from eliquis [...] have him follow up with his local sap trainer Comorbidities: --history of DVT status post IVC [...] discussed with Dr. Venegas, chief urology resident books salesperson. Pager during business hours: [phone] Pager after hours: [phone] * Qamar Jim Pharm.D., R.Ph. - 08/21/2023 [...] place draining clear smith colored urine I/O ([id number]): 1800 cc urine output 75 cc serosanguineous [...] locallyfor CBI. He was subsequently transferred to [facility] 08/12 for difficulty irrigating his catheter despite [...] 2.5 mg BID eliquis initiated 08/15 [facility] med curbside recs --transition from eliquis [...] have him follow up with his local sap trainer Comorbidities: --history of DVT status post IVC [...] Held Home Meds: None Consults: TPN, KESHIA Harvey M.D. 08/21/2023 Please page the Urology Chief Service with questions or concerns. Patient seen and discussed with Dr. Venegas, chief urology resident books salesperson. Pager during business hours: [phone] Pager after hours: [phone] * Lizette Harvey M.D. - 08/20/2023 8:08 [...] draining clear thin merlot colored urine I/O ([id number]): 240 cc p.o. intake 760 cc urine [...] locallyfor CBI. He was subsequently transferred to [facility] 08/12 for difficulty irrigating his catheter despite [...] 2.5 mg BID eliquis initiated 08/15 per [facility] med curbside recs --transition from eliquis [...] have him follow up with his local sap trainer Comorbidities: --history of DVT status post IVC [...] questions or concerns. Pager during business hours: [phone] Pager after hours: [phone] * Qamar Jim, Pharm.D., R.Ph. - 08/20/2023 [...] in [employer]. Qamar Jim Pharm.D., R.Ph. * HoahaoismLisa O.T., MOT - 08/19/2023 2:26 PM CDT Occupational Therapy [facility] Inpatient Treatment SUBJECTIVE Patient's Name: Kalen Vega Referring/Attending Provider: Boubacar Brock M.D. Reason for Referral: Occupational Therapy Evaluation and Treatment History of Present Illness: Kalen Vega is a 83 y.o. male who was admitted to [facility] in [place] on 08/13/2023 for Hematuria [R31.9]. Precautions Other Precautions: Abdominal, fall precautions, monitor tachycardia and hypertension Pain Assessment: Pain not reported during session. Subjective Comments: Patient greeted in chair and agreeable to therapy session. Team Communication: The patient's status was discussed and coordination of care occurred with RN OBJECTIVE Vital Signs: Vitals monitored throughout session; within normal ranges. Outcome Measures: [facility] Inpatient Short Form: Putting on and [...] at or below 17 Clinicians answer the [facility] Inpatient Short Form based on observed [...] about patient's nutritional care please contact pager [phone] on weekdays or [phone] on weekends/holidays. NUTRITION ASSESSMENT: Mr. Vega is [...] care everywhere) ESTIMATED NEEDS: Total Calorie Needs: 4317-1448 calories/day Method to Estimate Energy Needs: kcal/kg [...] 83 y.o. male who was admitted to [facility] in [place] on 08/13/2023 for Hematuria [R31.9] Precautions Other [...] 3-5 steps with a railing?: A Little -[facility] Basic Mobility (V.2) Raw Score: 18 -[facility] Basic Mobility (V.2) Standardized Score: 41.05 Interpretation: Based on scoring guidelines using the raw score value: Those going to home had an average score at or above 18 Those going to facility had an average score at or below 17 Clinicians answer the -[facility] Inpatient Short Form based on observed patient [...] Ongoing PT Goal #2: Patient will perform oxb-ph-gvhjc transfer with modified independence and least restrictive [...] by aPTT guidance document in [employer]MayoExpert. Marie Cassidy, Pharm.D., R.Ph. Addendum at 14:08: aPTT Results [...] in place draining clear pink urine I/O ([id number]): 370 p.o. intake 1 L urine output [...] locallyfor CBI. He was subsequently transferred to [facility] 08/12 for difficulty irrigating his catheter despite [...] have him follow up with his local sap trainer Comorbidities: --history of DVT status post IVC [...] questions or concerns. Pager during business hours: [phone] Pager after hours: [phone] * Lisa Seaman, O.T., [facility] - 08/18/2023 11:15 AM CDT Occupational Therapy Acute Hospital Inpatient Treatment SUBJECTIVE Patient's Name: Kalen Vega Referring/Attending Provider: Boubacar Brock M.D. Reason for Referral: Occupational Therapy Evaluation and Treatment History of Present Illness: Kalen Vega is a 83 y.o. male who was admitted to [facility] in [place] on 08/13/2023 for Hematuria [R31.9]. Precautions Other [...] pressure: 168/97 - nurse notified Outcome Measures: [facility] Inpatient Short Form: Putting on and [...] at or below 17 Clinicians answer the [facility] Inpatient Short Form based on observed [...] doffing over it last. Recommended adaptive equipment: Instrumentation Instructor and Sock Aid. Patient was left in bedside chair, with nursing/EMERGENCY PHYSICIAN at end of session with call light [...] 83 y.o. male who was admitted to [facility] in [place] on 08/13/2023 for Hematuria [R31.9] Precautions Other [...] vital signs with primary service. Outcome Measures: [facility] Inpatient Short Form: -[facility] Basic Mobility (V.2) How much help from [...] 3-5 steps with a railing?: A Little -[facility] Basic Mobility (V.2) Raw Score: 18 -[facility] Basic Mobility (V.2) Standardized Score: 41.05 Interpretation: Based on scoring guidelines using the raw score value: Those going to home had an average score at or above 18 Those going to facility had an average score at or below 17 Clinicians answer the [facility] Inpatient Short Form based on observed [...] following coordination of care occurred with the scanning manager/Caregiver Present: No Patient was left in bedside [...] Progressing PT Goal #2: Patient will perform uel-bw-pjopt transfer with modified independence and least restrictive [...] Scott Pina P.T., D.P.T. * Aziza Cortez PharmJonahDJonah, R.Ph. - 08/18/2023 7:59 AM CDT [...] in place draining clear pink urine I/O ([id number]): 1.2 L p.o. intake 1 L urine [...] locallyfor CBI. He was subsequently transferred to [facility] 08/12 for difficulty irrigating his catheter despite [...] 2.5 mg BID eliquis initiated 08/15 per [facility] recs --transition from eliquis ppx to [...] diet later today follow up vascular medicine [facility] Summary: Diet: currently limited clears Activity: Ad kong DVT PPX: heparin drip GI PPX: Pantoprazole Bowel Regimen:N/A IVF: none Abx/Microbiology: Ceftriaxone Pain Control: Tylenol, oxycodone 08/18. Scheduled trospium Home Meds Resumed: Metoprolol, tamsulosin, rosuvastatin Held Home Meds: None Consults: None Paula Hernandez M.D. 08/18/2023 6:02 AM CDT Please page the Urology Chief Service with questions or concerns. Pager during business hours: [phone] Pager after hours: [phone] * Tayler Greenwood M.D., M.Ed. - 08/17/2023 [...] Tayler Greenwood MD, MEd * Alia Ruelas Pharm.D., R.Ph., BCPS - [...] the patient follow up with his primary sap trainer at discharge we will which we will [...] List Status: Pharmacy Complete Set By: Irvin Franco, PharmPerla., R.Ph. at 08/14/2023 10:22 AM Taking? [...] secondary to radiation proctitis requires frequent transfusions. [facility] to floor 08/15/23 PMH: Metastatic prostate [...] Ringer's Lactated Ringer's * Lisa Seaman, O.T., [facility] - 08/17/2023 10:47 AM CDT Occupational Therapy Acute Hospital Inpatient Treatment SUBJECTIVE Patient's Name: Kalen Vega Referring/Attending Provider: Brock, Boubacar K, M.D. Reason for Referral: Occupational Therapy Evaluation and Treatment History of Present Illness: Kalen Vega is a 83 y.o. male who was admitted to [facility] in [place] on 08/13/2023 for Hematuria [R31.9]. Precautions Other Precautions: abdominal; fall risk; watch HR Pain Assessment: Pain not reported during session. Subjective Comments: Patient greeted in bed and agreeable to therapy session. Team Communication: The patient's status was discussed and coordination of care occurred with RN OBJECTIVE Vital Signs: Vitals taken during session: Pulse rate: 102-128 bpm Outcome Measures: [facility] Inpatient Short Form: Putting on and [...] at or below 17 Clinicians answer the [facility] Inpatient Short Form based on observed [...] in place draining clear pink urine I/O ([id number]): NG tube 200 cc Two hundred sixty-five [...] locallyfor CBI. He was subsequently transferred to [facility] 08/12 for difficulty irrigating his catheter despite [...] questions or concerns. Pager during business hours: [phone] Pager after hours: [phone] * Audi De Luna P.T., D.P.T. - [...] in place draining clear pink urine I/O ([id number]): NG tube 200 cc Two hundred sixty-five [...] locallyfor CBI. He was subsequently transferred to [facility] 08/12 for difficulty irrigating his catheter despite [...] questions or concerns. Pager during business hours: [phone] Pager after hours: [phone] * Paula Hernandez M.D. - 08/15/2023 9:09 AM CDT PROGRESS NOTE: No events. AFVSS. Pain controlled. No flatus. No further emesis overnight. Abdomen more distended than yesterday but remained soft, tender to deep palpation only, no rebound. Twenty-four Palauan Alcock three-way catheter remains off CBI, draining [...] for CBI. He was subsequently transferred to [facility] 08/12 for difficulty irrigating his catheter despite [...] risks associated with surgery and anesthesia including TN, stroke, and VTE were also discussed. Finally, [...] above was discussed with Dr. Brock, urology web consultant on-call who is in agreement with [...] Family to bring his home enzalutamide from [place] Irvin Franco PharmPerla., R.Ph. * Jakob De Paz M.D. - 08/14/2023 11:34 AM CDT PROGRESS NOTE: No events. AFVSS. Pain controlled. No flatus. Nauseous and had 2 episodes of emesis. Abdomen more distended than yesterday but remained soft, tender to deep palpation only, no rebound. Twenty-four Palauan Alcock three-way catheter remains off CBI, draining [...] for CBI. He was subsequently transferred to [facility] 08/12 for difficulty irrigating his catheter despite [...] above was discussed with Dr. Brock, urology web consultant on-call who is in agreement with [...] Patient discussed with Dr. Sylvester. Page CCM3 [id number] Carlos Alberto Henson M.D. PGY-1 CCM 3 [...] who have asked we place a 24 Palauan 3-way urinary catheter pending evaluation. We will [...] stent and hematuria who is transferred from [facility] ED with 3 days of hematuria and [...] him to present to local hospital in [place]. OSH Course: His hemoglobin was in the [...] Insecurity: No Food Insecurity (02/16/2022) Received from [facility] [employer] [facility], [facility] Food Insecurity Worried About Running Out of Food in the Last Year: 1 Transportation Needs: No Transportation Needs (02/16/2022) Received from [facility] [employer] [facility], [facility] Transportation Needs Lack of Transportation (Medical): 1 Housing Stability: Low Risk (02/16/2022) Received from [facility] [employer] [facility], [facility] Housing Stability Unable to Pay for [...] Dr. Sylvester and Dr. Rodriguez. Page CCM3 [id number] Carlos Alberto Henson M.D. PGY-1 CCM 3 [...] As expected PRIMARY PROCEDURALIST FAY Cerna MD [phone] ASSISTANTS none COMPLICATIONS None. DRAINS None. IMPLANTS None. ANESTHESIA Local Anesthesia. FLUIDS none ESTIMATED BLOOD LOSS <5ml CURRENT MEDICATIONS No Medication Changes FOLLOW-UP LETTER None. MAY RETURN TO WORK Not applicable PATIENT INSTRUCTIONS No return appointment * Miko Shah RJonahNJonah - 08/20/2023 8:40 PM CDTAssociated Order(s): Place peripherally inserted central catheter (PICC) Images from the original note were not included. Place peripherally inserted central catheter (PICC) Performed by: Miko Shah RNarendra Authorized by: Lizette Harvey M.D. Care team [...] peripheral vein targets. Ultrasound used for assessment: [employer] Provider contacted (include name): Uro Surg [...] 14 -- AST U/L 25 -- Radiology: @[id number]@ Swallow Assessment: No data to display ASSESSMENT / PLAN #1 Hematuria ASSESSMENT Currently we are asked to visit with Mr. Vega for consideration of parenteral nutrition. Nutrition Needs: Height: 180 cm Admission Weight: 91.2 kg (08/13/2023) Current Weight: 90.2 kg BMI (Calculated): 27.8 kg/m?? Total Calorie Needs: 9192-0995 calories/day Method to Estimate Energy Needs: Garcia-Hanover ( ) Weight Used for Equation Calculations: [...] on electrolytes Please call NSS pager at [phone] at [facility] or [phone] at [facility] with any additional questions. * Gilbert Johnson M.D. - 08/20/2023 8:05 AM CDTAssociated Order(s): Nutrition support service consult ([facility]) SUBJECTIVE Nutrition support service consult ([facility]) Referring Provider: Lizette Harvey M.D. REASON FOR [...] values in this interval not displayed. Radiology: @[id number]@ Swallow Assessment: No data to display ASSESSMENT / PLAN #1 Hematuria ASSESSMENT Currently we are asked to visit with Mr. Vega for consideration of parenteral nutrition. Nutrition Needs: Height: 180 cm Admission Weight: 91.2 kg (08/13/2023) Current Weight: 90.2 kg BMI (Calculated): 27.8 kg/m?? Total Calorie Needs: 6942-3899 calories/day Method to Estimate Energy Needs: kcal/kg [...] on electrolytes Please call NSS pager at [phone] at [facility] or [phone] at [facility] with any additional questions. BILLING/CODING Total visit [...] stent along with other stents and apparently sap trainer in the past I recommended indefinite dual [...] documented in the history of present illness. @[facility]@ OBJECTIVE Current Facility-Administered Medications: acetaminophen tablet [...] 20 mL/hr, intravenous, Continuous, Frieda Garner APRN, GAVIN, Last Rate: 20 mL/hr at 08/15/23 1459, [...] but he can discuss this with his sap trainer at home. We need to balance transfusion needs for continued bleedingand risk of recurrent TN if not on Plavix-coronary stents were 6 [...] 83 y.o. male who was admitted to [facility] in [place] on 08/13/2023 for Hematuria [R31.9]. Relevant Medical History: Kalen Vega is a 83 y.o. 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 Outcome Measures: [facility] Inpatient Short Form: -[facility] Basic Mobility (V.2) How much help from [...] 3-5 steps with a railing?: A Lot -[facility] Basic Mobility (V.2) Raw Score: 17 -[facility] Basic Mobility (V.2) Standardized Score: 39.67 Interpretation: Based on scoring guidelines using the raw score value: Those going to home had an average score at or above 18 Those going to facility had an average score at or below 17 Clinicians answer the -[facility] Inpatient Short Form based on observed patient [...] following coordination of care occurred with the scanning manager/Caregiver Present: Favio Alfaro Patient was left in [...] 83 y.o. male who was admitted to [facility] in [place] on 08/13/2023 for Hematuria with cystotomy and [...] Min assist for mobility. Required assist for gmv-vk-pgllp for force generation and is generally standby [...] Ongoing PT Goal #2: Patient will perform jyu-hm-kbmjv transfer with modified independence and least restrictive [...] 83 y.o. male who was admitted to [facility] in [place] on 08/13/2023 for Hematuria [R31.9]. Relevant Medical [...] with RN, PT Family/Caregiver Present: Son and jqhxkciw-zs-twe. Home Living and Equipment: Lives with: Spouse/Significant [...] walker, Single point cane Adaptive Equipment Owned: Instrumentation Instructor, Long Handled Shoe Horn Other DME Owned: Regular flat bed Prior Level of Function and Mobility: Basic Activities of Daily Living: Independent Instrumental Activities of Daily Living: Required Assistance: Laundry son assists with laundry and cooking Functional Mobility: Independent Driving: Yes Occupational Role: Retired Leisure Interests: watch movies, plays malian train, meets friends for breakfast. Patient/Caregiver Goals: [...] Wears glasses all the time Outcome Measures: [facility] Inpatient Short Form: Putting on and [...] at or below 17 Clinicians answer the [facility] Inpatient Short Form based on observed [...] Treatment Time (min): 43 min Lisa Seaman OCarlos, MOT * Sivakumar Parham L.G.STimi, M.S.W. - [...] all are a great support. 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 Patient expressed understanding and was agreeable to [...] in conversation with his family when social worker psychiatric entered the room. He was engaged in [...] locally at approximately 3:00 a.m. a 22 Palauan three-way catheter was placed and CBI wasinitiated. Unfortunately he clotted off the catheter multiple times despite manual irrigations, started to develop hypotension and tachycardia and [facility] He relays the above history [...] non-distended, non-peritonitic Extremities: No edema : 22 Palauan three-way Tabares catheter draining a minimal amount [...] urinary retention Given his non draining 22 Palauan three-way catheter the Urology techs and I subsequently exchanged this for a 24 Palauan three-way Alcock in the usual sterile fashion. [...] to follow [place] [phone] with questions or concerns Sixto Cain M.D. [...] peripheral vein targets. Ultrasound used for assessment: [employer] Fit Provider contacted (include name): Uro Surg [...] CDT Patient Transfer Note Patient transferred to: [facility] Room: [facility] Accompanied by: JAMEL Garcia Report called? [...] signs? YES * Sixto Teague R.R.T., L.R.TJonah, GASOLINE ATTENDANT-[facility] - 08/14/2023 7:00 AM CDT Patient is [...] the last 24hours. Sixto Teague R.R.T., L.R.TJonah, GASOLINE ATTENDANT-[facility] 08/14/23 7:00 AM CDT * Radha Crespo [...] Bladder Spontaneous Post-op Diagnosis Rupture Bladder Spontaneous Manager Port A human resources assistant manager actively participated and was necessary for one [...] the supine flexed position. His existing 24 Palauan three-way Tabares catheter was noted to be [...] additional tissue for additional coverage. A 24 Palauan three-way catheter was placed with 15 cc in the balloon. This irrigated to light clear pink. A 15 Palauan YARELI drain wasplaced into the pelvis exiting left lower quadrant. The fascia was closed with interrupted and pudibd-zb-whrwz 0 PDS. Fat was approximated using 3-0 [...] RN, CPN, HELDERS, CCS, CRC Clinical Documentation Chief Operations Officer Query created by: ELMER Barker, RN, CPN, HELDERS, CCS, CRC 08/25/2023 08:37 AM CDT </LCI> [...] stent and hematuria who is transferred from [place] ED with 3 days of hematuria & [...] RN, CPN, HELDERS, CCS, CRC Clinical Documentation Chief Operations Officer Query created by: ELMER Barker, RN, [...] he felt completely obstructed and presented to [place] ED. [place] Course Attempted Tabares insertion but bladder irrigation was unsuccessful on multiple attempts. Hung 1U pRBC's. Given some volume and transferred to [facility] ICU ICU Course Urology consulted and were [...] CDT Procedure visit Department of Urology in [place], [place] [address] [place] [address] Sima Venegas M.D. [address] [place] [address] Pending Results Name Type Priority Associated Diagnoses [...] Antibody ID) (08/26/2023 6:50 AM CDT) Pathologist [facility] ABORh O Pos Not applicable 08/26/2023 7:16 AM CDT STRM Antibody Screen Negative Negative 08/26/2023 7:29 AM CDT STRM Type & Screen Expiration 08/29/2023 23:59 08/26/2023 7:16 AM CDT STRM Testing Location Marcio DEFAULT 08/26/2023 6:57 AM CDT STRM Blood (Blood, Venous) 08/26/2023 6:50 AM CDT 08/26/2023 6:57 AM CDT Paula Hernandez M.D. LAB BLOOD BANK TEST ORDERABLES Performing Organization Address City/State/[facility] Co de Phone Number [facility] [address] [place] [address], [facility] [address] [place] [address] * (ABNORMAL) CBC without Differential (08/26/2023 3:20 AM CDT) [facility] Hemoglobin 7.4(L) 13.2 - 16.6 g/dL [...] Organization Address City/[facility]/ZIP Co de Phone Number [facility] [address] [place] [address] * Magnesium (08/26/2023 3:20 AM CDT) Magnesium, S 2.1 1.7 - 2.3 mg/dL 08/26/2023 4:04 AM CDT DTL Blood (Blood, Venous) 08/26/2023 3:20 AM CDT 08/26/2023 3:50 AM CDT Boubacar Brock M.D. LAB BLOOD ADD-ON Performing Organization Address City/[facility] Co de Phone Number [facility] [address] [place] [address] * (ABNORMAL) Renal Function Panel (08/26/2023 3:20 [...] CDT Boubacar Brock M.D. [place] [address], [facility] [place] [address] * Heparin Anti-Xa Assay (08/26/2023 3:20 AM [...] BLOOD NON ADD -ON Performing Organization Address City/[facility]/ZIP Co de Phone Number [facility] [address] [place] [address], [facility] [address] [place] [address] * (ABNORMAL) CBC without Differential (08/25/2023 3:24 AM CDT) Pathologist [facility] Hemoglobin 8.3(L) 13.2 - 16.6 g/dL 08/25/2023 [...] CDT Corin Ring M.D. LAB BLOOD ADD-ON [facility] [address] [place] [address], [facility] [address] [place] [address] * (ABNORMAL) Renal Function Panel (08/25/2023 3:24 [...] CDT Boubacar Brock M.D. LAB BLOOD ADD-ON [facility] [address] [place] [address], [place] DTL [facility] [address] [place] [address] * Magnesium (08/25/2023 3:24 AM CDT) [facility] Magnesium, S 2.2 1.7 - 2.3 mg/dL 08/25/2023 4:[address] [facility] Blood (Blood, Venous) 08/25/2023 3:24 AM CDT 08/25/2023 4:19 AM CDT Boubacar Brock M.D. LAB BLOOD ADD-ON Performing Organization Address [facility]/ZIP Co de Phone Number [facility] [address] [place], [place] [phone] [place] [address] 200 [place] [address] * Heparin Anti-Xa Assay (08/25/2023 3:24 AM CDT) [facility] Heparin Anti-Xa, P 0.31 IU/mL 2023 4:[address] [facility] Comment: UFH therapeutic range: ?? 0.30-0.70 IU/mL [...] LAB BLOOD NON ADD-ON Performing Organization Address [facility]/ZIP Co de Phone Number [facility] [address] [place] [address], [facility] [address] [place] [address] * (ABNORMAL) CBC without Differential (08/24/2023 5:28 AM CDT) [facility] Hemoglobin 8.1(L) 13.2 - 16.6 g/dL 08/24/2023 [...] Organization Address City/[facility]/ZIP Co de Phone Number [facility] [address] [place] [address] * Magnesium (08/24/2023 5:28 AM CDT) Magnesium, S 2.3 1.7 - 2.3 mg/dL 08/24/2023 6:19 AM CDT DTL Blood (Blood, Venous) 08/24/2023 5:28 AM CDT 08/24/2023 6:00 AM CDT Bouabcar Brock M.D. LAB BLOOD ADD-ON [facility] [address] [place] [address] * (ABNORMAL) Renal Function Panel (08/24/2023 5:28 [...] CDT Boubacar Brock M.D. LAB BLOOD ADD-ON [facility] [address] [place] [address], [place] [facility] [facility] [address] [place] [address] * Heparin Anti-Xa Assay (08/24/2023 5:28 AM [...] Organization Address City/[facility]/ZIP Co de Phone Number [facility] 200 [place] [address], [facility] [address] [place] [phone] * (ABNORMAL) Potassium (08/23/2023 9:58 PM CDT) Pathologist [facility] Potassium, S 3.5(L) 3.6 - 5.2 mmol/L 08/23/2023 10:[address] [facility] Blood (Blood, Venous) 08/23/2023 9:58 PM CDT 08/23/2023 10:30 PM CDT Boubacar Brock M.D. LAB BLOOD ADD-ON [facility] [address] [place] [address], [facility] [address] [place] [id number] * (ABNORMAL) Phosphorus Inorganic (08/23/2023 9:58 PM CDT) [facility] Phosphorus (Inorganic), S 2.1(L) 2.5 - 4.5 mg/dL 08/23/2023 10:45 PM CDT DT Blood (Blood, Venous) 08/23/2023 9:58 PM CDT 08/23/2023 10:30 PM CDT Paula Hernandez M.D. LAB BLOOD ADD-ON Performing Organization Address City/[facility] Co de Phone Number [facility] [address] [place], [place] [phone] [place] [address] 200 [place] [address] * Heparin Anti-Xa Assay (08/23/2023 11:37 AM CDT) [facility] Heparin Anti-Xa, P 0.51 IU/mL 2023 12:[address] [facility] Comment: UFH therapeutic range: ?? 0.30-0.70 IU/mL [...] LAB BLOOD NON ADD-ON Performing Organization Address [facility]/ZIP Co de Phone Number [facility] [address] [place], [place] [phone] [place] [address] [address] [place] [address] * (ABNORMAL) CBC without Differential (08/23/2023 3:42 [...] CDT Corin Ring M.D. [place] [address], [place] [address] * Triglycerides (08/23/2023 3:42 AM CDT) Pathologist [facility] Triglycerides 106 mg/dL 08/23/2023 4:50 AM CDT DTL Comment: ----REFERENCE VALUE---- Normal: <150 mg/dL Borderline High: 150-199 mg/dL High: 200-499 mg/dL Very High: > or =500 mg/dL Fasting (8 HR or more) Yes 08/23/2023 4:19 AM CDT DTL Blood (Blood, Venous) 08/23/2023 3:42 AM CDT 08/23/2023 4:19 AM CDT Boubacar Brock M.D. LAB BLOOD ADD-ON Performing Organization Address City/[facility]/[place] [address] * Magnesium (08/23/2023 3:42 AM CDT) Magnesium, S 2.2 1.7 - 2.3 mg/dL 08/23/2023 4:50 AM CDT DTL Blood (Blood, Venous) 08/23/2023 3:42 AM CDT 08/23/2023 4:19 AM CDT Boubacar Brock M.D. LAB BLOOD ADD-ON Performing Organization Address [facility] [place] [address] * (ABNORMAL) Renal Function Panel (08/23/2023 3:42 [...] DTL Comment: Estimated GFR calculated using the 2021 CKD_EPI creatinine equation. Calcium, Total, S 7.0(L) [...] CDT Boubacar Brock M.D. LAB BLOOD ADD-ON [facility] 200 [place] [address], [facility] 200 [place] [address] * Heparin Anti-Xa Assay (08/23/2023 3:41 AM [...] Organization Address City/[facility] Co de Phone Number [facility] [address] [place] [address], [facility] DTL [facility] 200 [place] [address] * Glucose, POCT (08/22/2023 11:38 PM CDT) Glucose, POCT, B 117 70 - 140 mg/dL 08/23/2023 1:06 AM CDT PCLX Site Capillary 08/23/2023 1:06 AM CDT PCLX Last Intake NPO 08/23/2023 1:06 AM CDT PCLX Blood 08/22/2023 11:3 8 PM CDT 08/23/2023 1:06 AM CDT Unknown Provider LAB POCT ORDERABLES- MANUAL Performing Organization Address [facility] Co de Phone Number POC [facility] [address] [place] [address], [facility] PCLX [facility] POC [address] [place] [address] * Heparin Anti-Xa Assay (08/22/2023 10:14 PM [...] PM CDT 08/22/2023 10:34 PM CDT Boubacar K Brock M.D. LAB BLOOD NON ADD-ON [facility] [address] [place] [address], [place] DTL [facility] [address] [place] [address] * CT Abdomen Pelvis without IV Contrast [...] Boubacar Brock M.D. LAB BLOOD NON ADD-ON [facility] [address] [place] [address], [facility] [address] [place] [address] * Creatinine, Body Fluid (08/22/2023 3:30 PM [...] transport rates. All other fluids refer to [email or web address] for further interpretive information. This test has been modified from the skimmer scoop operator's instructions. Its performance characteristics were determined by [facility] in a manner consistent with CLIA requirements. This test has not been cleared or approved by the U.S. Food and Drug Administration. Fluid Type, Creatinine Fluid, Abdomen 08/22/2023 3:52 PM CDT DTL Fluid (Abdomen) 08/22/2023 3 :30 PM CDT 08/22/2023 6:36 PM CDT Corin Ring M.D. LAB BODY FLUIDS AND STOOLS ORDERABLES [facility] [address] [place] [address], [facility] [address] [place] [address] * Transfuse Red Blood Cells : (08/22/2023 [...] of a right IJ vein single-lumen 4 Palauan tunneled PowerPICC ready for immediate use. NR [...] advanced into the IVC and a 4 Palauan dilator advanced over the wire and attached to a one-way stopcock. A suitable exit site in the right anterior chest was anesthetized and a small incision made. A 4 Palauan single-lumen PowerPICC was then tunneled from the [...] Wireadvanced into the IVC and a 4 Palauan dilator advanced over the wire andattached to a one-way stopcock. A suitable exit site in the right anteriorchest was anesthetized and a small incision made. A 4 Palauan single-lumen PowerPICC was then tunneled fromthe skin [...] of a right IJ vein single-lumen 4 Palauan tunneled PowerPICCready for immediate use. NR Kimi Vieira M.D., M.S. IM KESHIA LAWSON * (ABNORMAL) CBC without Differential [...] CDT Latisha Whitehead M.D. LAB BLOOD ADD-ON [facility] [address] [place] [address], [facility] [address] [place] [address] * Type and Screen (with Reflex Antibody [...] M.D. LAB BLOOD BANK T EST ORDERABLES [facility] [address] [place] [address], [facility] STRM [facility] [address] [place] [address] * (ABNORMAL) Comprehensive Metabolic Panel (08/22/2023 2:40 [...] CDT Latisha Whitehead M.D. [place] [address], [facility] [place] [address] * Heparin Anti-Xa Assay (08/22/2023 2:40 AM CDT) Pathologist [facility] Heparin Anti-Xa, P 0.47 IU/mL 2023 [...] Organization Address City/[facility]/ZIP Co de Phone Number [facility] [address] DTL [facility] 200 [place] [address] * (ABNORMAL) APTT (Activated Partial Thromboplastin Time) (08/22/2023 2:40 AM CDT) Pathologist [facility] Activated Partial Thrombopl Time, P 64(H) 25 - 37 sec 08/22/2023 3:12 AM CDT STMA Blood (Blood, Venous) 08/22/2023 2:40 AM CDT 08/22/2023 3:01 AM CDT Latisha Whitehead M.D. LAB BLOOD ADD-ON Performing Organization Address [facility] Co de Phone Number [facility] [address] [place], [place] [id number] [place] [address] STMA [facility] 200 [place] [address] * Triglycerides (08/21/2023 7:32 AM CDT) [facility] Triglycerides 98 mg/dL 08/21/2023 9:03 AM CDT [...] Organization Address City/[facility]/ZIP Co de Phone Number [facility] [address] 200 [place] [address] * Phosphorus Inorganic (08/21/2023 7:32 AM CDT) Pathologist [facility] Phosphorus (Inorganic), S 2.6 2.5 - 4.5 mg/dL 08/21/2023 9:03 AM CDT DTL Blood (Blood, Venous) 08/21/2023 7:32 AM CDT 08/21/2023 8:38 AM CDT Lizette Harvey M.D. LAB BLOOD ADD-O N [facility] [address] [place] [address] * Magnesium (08/21/2023 7:32 AM CDT) Pathologist [facility] Magnesium, S 2.3 1.7 - 2.3 mg/dL 08/21/2023 9:03 AM CDT DTL Blood (Blood, Venous) 08/21/2023 7:32 AM CDT 08/21/2023 8:38 AM CDT Lizette Harvey M.D. LAB BLOOD ADD-O N [facility] [address] 200 [place] [address] * (ABNORMAL) Basic Metabolic Panel (08/21/2023 7:32 [...] Lizette Harvey M.D. [place] [address], [facility] [place] [address] * (ABNORMAL) CBC without Differential (08/21/2023 7:32 [...] LAB BLOOD ADD-O N Performing Organization Address [facility]/[place] [address] * Heparin Anti-Xa Assay (08/21/2023 7:32 AM [...] Organization Address City/[facility]/ZIP Co de Phone Number [facility] [address] [place], [place] [phone] [place] [address] [place] [address] * (ABNORMAL) APTT (Activated Partial Thromboplastin Time) (08/21/2023 7:32 AM CDT) Activated Partial Thrombopl Time, P 49(H) 25 - 37 sec 08/21/2023 8:31 AM CDT DTL Blood (Blood, Venous) 08/21/2023 7:32 AM CDT 08/21/2023 8:06 AM CDT Boubacar Brock M.D. LAB BLOOD ADD-ON Performing Organization Address [facility] Co de Phone Number [address] [address], [facility] [address] [address] * Place peripherally inserted central catheter (PICC) [...] M.D. PROCEDURE/MINOR SURGICAL ORDERABLES Performing Organization Address [facility]/ZIP Co de Phone Number MMODAL NA * [...] hydronephrosis of the atrophic right kidney. Lizette N Sax-Bolder M.D. IMG CT PROCEDUR ES * (ABNORMAL) Basic Metabolic [...] CDT Paula Hernandez M.D. LAB BLOOD ADD-ON [facility] [address] [place] [address], [facility] [address] [place] [address] * (ABNORMAL) CBC without Differential (08/20/2023 3:19 [...] Organization Address City/[facility]/ZIP Co de Phone Number [facility] [address] [place] [address] * (ABNORMAL) APTT (Activated Partial Thromboplastin Time) (08/20/2023 3:19 AM CDT) [facility] Activated Partial Thrombopl Time, P 52(H) 25 - 37 sec 08/20/2023 4:33 AM CDT DTL Blood (Blood, Venous) 08/20/2023 3:19 AM CDT 08/20/2023 4:10 AM CDT Boubacar Brcok M.D. LAB BLOOD ADD-ON Performing Organization Address City/[facility]/ZIP Co de Phone Number [facility] [address] [facility] [address] [place] [address] * (ABNORMAL) APTT (Activated Partial Thromboplastin Time) (08/19/2023 10:57 AM CDT) Activated Partial Thrombopl Time, P 54(H) 25 - 37 sec 08/19/2023 11:44 AM CDT DTL Blood (Blood, Venous) 08/19/2023 10:57 AM CDT 08/19/2023 11:26 AM CDT Boubacar Brock M.D. LAB BLOOD ADD-ON Performing Organization Address City/[facility]/ZIP Co de Phone Number [facility] 200 [place] [address], [facility] 200 [place] [address] * (ABNORMAL) APTT (Activated Partial Thromboplastin Time) (08/19/2023 4:51 AM CDT) Pathologist [facility] Activated Partial Thrombopl Time, P 59(H) 25 - 37 sec 08/19/2023 5:53 AM CDT DT Blood (Blood, Venous) 08/19/2023 4:51 AM CDT 08/19/2023 5:36 AM CDT Boubacar Brock M.D. LAB BLOOD ADD-ON Performing Organization Address City/[facility]/ZIP Co de Phone Number [facility] [address] [place] [address], [facility] 200 [place] [address] * (ABNORMAL) APTT (Activated Partial Thromboplastin Time) (08/18/2023 10:03 PM CDT) Pathologist [facility] Activated Partial Thrombopl Time, P 63(H) 25 - 37 sec 08/18/2023 10:41 PM CDT DTL Blood (Blood, Venous) 08/18/2023 10:03 PM CDT 08/18/2023 10:19 PM CDT Boubacar K Brock M.D. LAB BLOOD ADD-ON Performing Organization Address City/[facility]/ZIP Co de Phone Number [facility] [address] [place] [address] * (ABNORMAL) APTT (Activated Partial Thromboplastin Time) (08/18/2023 2:50 PM CDT) Activated Partial Thrombopl Time, P 64(H) 25 - 37 sec 08/18/2023 3:25 PM CDT DTL Blood (Blood, Venous) 08/18/2023 2:50 PM CDT 08/18/2023 3:07 PM CDT Boubacar Brock M.D. LAB BLOOD ADD-ON Performing Organization Address City/[facility]/ZIP Co de Phone Number [facility] [address] 200 [place] [address] * (ABNORMAL) APTT (Activated Partial Thromboplastin Time) (08/18/2023 6:42 AM CDT) Pathologist [facility] Activated Partial Thrombopl Time, P 61(H) 25 - 37 sec 08/18/2023 7:28 AM CDT DTL Blood (Blood, Venous) 08/18/2023 6:42 AM CDT 08/18/2023 7:04 AM CDT Boubacar Brock M.D. LAB BLOOD ADD-ON [facility] 200 [place], [place] [phone] [place] [address] 200 [place] [address] * (ABNORMAL) APTT (Activated Partial Thromboplastin Time) (08/17/2023 11:04 PM CDT) Activated Partial Thrombopl Time, P 40(H) 25 - 37 sec 08/17/2023 11:46 PM CDT DTL Blood (Blood, Venous) 08/17/2023 11:04 PM CDT 08/17/2023 11:31 PM CDT Boubacar Brock M.D. LAB BLOOD ADD-ON [facility] [address] [place] [address], [place] DTL [facility] [address] [place] [address] * US Lower Extremity Veins Bilateral (08/17/2023 [...] and management can be found on the [employer] site. Link [email or web address] Findings discussed with ??Tayler Greenwood, ?? ([id number]) on 08/17/2023 7:11 PM. Procedure Note Jj [...] thrombosis and management can be found on theFameBit site. [email or web address] Findings discussed with Tayler Greenwood MD ([id number]) on 08/17/2023 7:11 PM. IMPRESSION: 1. Aging, [...] CDT Paula Hernandez M.D. LAB BLOOD ADD-ON [facility] 200 [place] [address], [facility] [address] [place] [address] * ECG 12 Lead (08/16/2023 9:43 PM CDT) Pathologist [facility] Ventricular Rate ECG/Min 134 BPM MUSE MA Interval 136 ms MUSE QRSD Interval 76 ms MUSE QT Interval 298 ms MUSE QTC Interval 445 ms MUSE P [place] 29 degrees MUSE R [place] -6 degrees MUSE T Wave [place] 21 degrees MUSE 08/16/2023 9:43 PM CDT [...] CDT Geneva Azar M.D. LAB BLOOD ADD-ON [facility] [address] [place] [address], [facility] DTL [facility] [address] [place] [address] * (ABNORMAL) Basic Metabolic Panel (08/16/2023 9:40 PM CDT) Pathologist [facility] Potassium, S 3.9 3.6 - 5.2 [...] CDT Geneva Azar M.D. [place] [address], [place] [address] * Transfuse Red Blood Cells : (08/16/2023 [...] CDT Paula Hernandez M.D. LAB BLOOD ADD-ON [facility] 200 [place] [address], [facility] 200 [place] [address] * (ABNORMAL) CBC without Differential (08/16/2023 3:10 [...] CDT Paula Hernandez M.D. LAB BLOOD ADD-ON [facility] [address] [place] [address], [facility] [address] [place] [address] * (ABNORMAL) CBC with Differential, Blood (08/15/2023 [...] Carlos Alberto Henson M.D. LAB BLOOD ADD-ON [facility] [address] [place] [address], [facility] DTL [facility] [address] [place] [address] DHPM [facility] [address] [place] [address] * DX Abdomen 1 View (08/15/2023 1:19 [...] CDT 08/15/2023 12:03 PM CDT Rae Gonzalez BOAT DISPATCHER, WICKER WORKER, DNAP LAB BLOO D NON ADD-ON [facility] [address] 200 [place] [address] * Lactate, B - Intra-op (08/15/2023 11:56 AM CDT) [facility] Lactate, B 1.1 0.5 - 2.2 mmol/L 08/15/2023 12:06 PM CDT STMA Blood (Blood, Venous) 08/15/2023 11:56 AM CDT 08/15/2023 12:03 PM CDT Hayde Song M.D. LAB BLOOD NON ADD-O N [facility] [address] [place] [address] * (ABNORMAL) Glucose, Whole Blood (08/15/2023 11:56 AM CDT) Pathologist [facility] Glucose 144(H) 70 - 140 mg/dL 08/15/2023 12:06 PM CDT STMA Blood (Blood, Arterial Line) 08/15/2023 11:56 AM CDT 08/15/2023 12:03 PM CDT Hayde Song M.D. LAB BLOOD ADD-ON [facility] 200 [place] [address], [facility] 200 [place] [address] * Potassium, Blood (08/15/2023 11:56 AM CDT) Potassium, B 4.3 3.6 - 5.2 mmol/L 08/15/2023 12:07 PM CDT STMA Blood (Blood, Arterial Line) 08/15/2023 11:56 AM CDT 08/15/2023 12:03 PM CDT Hayde Song M.D. LAB BLOOD NON ADD-O N Performing Organization Address City/[facility]/ZIP Co de Phone Number [facility] 200 [place] [address], [facility] 200 [place] [address] * Sodium, B (08/15/2023 11:56 AM CDT) Sodium, B 135 135 - 145 mmol/L 08/15/2023 12:06 PM CDT STMA Blood (Blood, Arterial Line) 08/15/2023 11:56 AM CDT 08/15/2023 12:03 PM CDT Hayde Song M.D. LAB BLOOD NON ADD-O N Performing Organization Address City/[facility]/ZIP Co de Phone Number [facility] [address] [place] [address], [facility] 200 [place] [address] * (ABNORMAL) Calcium, Ionized (08/15/2023 11:56 AM CDT) Calcium, Ionized, B 4.53(L) 4.65 - 5.30 mg/dL 08/15/2023 12:07 PM CDT STMA Blood (Blood, Arterial Line) 08/15/2023 11:56 AM CDT 08/15/2023 12:03 PM CDT Hayde Song M.D. LAB BLOOD NON ADD-O N [facility] [address] [place] [address], [facility] STMA [facility] [address] [place] [address] * (ABNORMAL) Blood Gas with Coox, Arterial [...] Organization Address City/[facility]/ZIP Co de Phone Number [facility] [address] [place], [place] [phone] [place] [address] [address] [place] [address] * FL Fluoro Less Than 1 Hour (08/15/2023 11:22 AM CDT) Narrative 152 HOS LOS RST - 08/15/2023 11:24 AM CDT This exam does not require a radiologist review or interpretation. Please refer to the patient's medical record on this date for clinical details. Boubacar Brock M.D. IMG FLUOROSCOPY PROC EDURES Performing Organization Address City/[facility]/ZIP Co de Phone Number 152 HOS [facility] RST * Patient Status (08/15/2023 10:28 AM CDT) Temperature 36.1 37.0 deg C 08/15/2023 10:28 AM CDT STMA FIO2 0.55 0.21=AIR 08/15/2023 10:28 AM CDT STMA Blood 08/15/2023 10:2 8 AM CDT 08/15/2023 10:28 AM CDT Rae Gonzalez APRN, WICKER WORKER, DNAP LAB BLOO D NON ADD-ON Performing Organization Address [facility] Co de Phone Number [facility] [address] [place] [address], [facility] [address] [place] [address] * Lactate, B - Intra-op (08/15/2023 10:28 AM CDT) Lactate, B 1.1 0.5 - 2.2 mmol/L 08/15/2023 10:30 AM CDT STMA Blood (Blood, Venous) 08/15/2023 10:28 AM CDT 08/15/2023 10:28 AM CDT Hayde Song M.D. LAB BLOOD NON ADD-O N [facility] [address] [place], [place] [phone] [place] [address] 200 [place] [address] * Glucose, Whole Blood (08/15/2023 10:28 AM CDT) Glucose 134 70 - 140 mg/dL 08/15/2023 10:30 AM CDT STMA Blood (Blood, Arterial Line) 08/15/2023 10:28 AM CDT 08/15/2023 10:28 AM CDT Hayde Song M.D. LAB BLOOD ADD-ON Performing Organization Address City/[facility]/ZIP Co de Phone Number [facility] 200 [place], [place] [phone] [place] [address] 200 [place] [address] * Potassium, Blood (08/15/2023 10:28 AM CDT) Potassium, B 4.1 3.6 - 5.2 mmol/L 08/15/2023 10:31 AM CDT STMA Blood (Blood, Arterial Line) 08/15/2023 10:28 AM CDT 08/15/2023 10:28 AM CDT Hayde Song M.D. LAB BLOOD NON ADD-O N Performing Organization Address City/[facility]/ZIP Co de Phone Number [facility] [address] [place], [place] [phone] [place] [address] 200 [place] [address] * Sodium, B (08/15/2023 10:28 AM CDT) Sodium, B 135 135 - 145 mmol/L 08/15/2023 10:30 AM CDT STMA Blood (Blood, Arterial Line) 08/15/2023 10:28 AM CDT 08/15/2023 10:28 AM CDT Hayde Song M.D. LAB BLOOD NON ADD-O N [facility] [address] [place] [address] * (ABNORMAL) Calcium, Ionized (08/15/2023 10:28 AM CDT) Calcium, Ionized, B 4.25(L) 4.65 - 5.30 mg/dL 08/15/2023 10:31 AM CDT STMA Blood (Blood, Arterial Line) 08/15/2023 10:28 AM CDT 08/15/2023 10:28 AM CDT Hayde Song M.D. LAB BLOOD NON ADD-O N Performing Organization Address City/[facility] Co de Phone Number [facility] [address] [place], [place] [phone] [place] [address] 200 [place] [address] * (ABNORMAL) Blood Gas with Coox, Arterial [...] Organization Address City/[facility]/ZIP Co de Phone Number [facility] [address] [place], [place] [address] [place] [address] STMA [facility] 200 [place] [address] * Bacteria / Yomaira Culture, Blood #2 (08/15/2023 3:33 AM CDT) Pathologist [facility] Bacteria/Leyla da Culture, Blood No growth after 5 days of incubation. 08/20/2023 6:02 AM CDT DTL Blood (Blood, Peripheral Draw) 08/15/2023 3:33 AM CDT 08/15/2023 5:58 AM CDT Comment:Specimen Source Site : Blood Narrative [facility] - 08/20/2023 6:02 AM CDT Received Bactec aerobic and Bactec anaerobic bottles Carlos Alberto Henson M.D. LAB MICROBIOLOGY - G ENERAL ORDERABLES Performing Organization Address City/[facility]/ZIP Co de Phone Number [facility] [address] [place] [address], [facility] DTL [facility] [address] [place] [address] * (ABNORMAL) Basic Metabolic Panel (08/15/2023 3:31 AM CDT) Pathologist [facility] Potassium, S 4.0 3.6 - 5.2 [...] Jakob De Paz M.D. [place] [address], [facility] 200 [place] [address] * Bacteria / Yomaira Culture, Blood #1 (08/15/2023 3:31 AM CDT) Bacteria/Leyla da Culture, Blood No growth after 5 days of incubation. 08/20/2023 6:02 AM CDT DTL Blood (Blood, Peripheral Draw) 08/15/2023 3:31 AM CDT 08/15/2023 5:59 AM CDT Comment:Specimen Source Site : Blood Carlos Alberto Henson M.D. LAB MICROBIOLOGY - G ENERAL ORDERABLES [facility] [address] [place] [address], [facility] DTL [facility] [address] [place] [address] * (ABNORMAL) CBC with Differential, Blood (08/15/2023 [...] Carlos Alberto Henson M.D. LAB BLOOD ADD-ON [facility] [address] [place] [address], [facility] DTL [facility] [address] [place] [address] [facility] [address] [place] [address] * (ABNORMAL) CBC with Differential, Blood (08/14/2023 [...] Carlos Alberto Henson M.D. LAB BLOOD ADD-ON [facility] [address] [place] [address], [facility] STMA [facility] [address] [place] [phone] [facility] [address] [place] [address] * Transfuse Red Blood Cells : , [...] Carlos Alberto Henson M.D. LAB BLOOD ADD-ON [facility] 200 [place] [address], [facility] STMA [facility] [address] [place] [address] [facility] [address] [place] [address] * (ABNORMAL) Basic Metabolic Panel (08/14/2023 3:18 [...] Carlos Alberto Henson M.D. [place] [address], [place] [address] * Type and Screen (with Reflex Antibody ID) (08/13/2023 7:35 PM CDT) Pathologist [facility] ABORh O Pos Not applicable 08/13/2023 7:58 PM CDT STRM Antibody Screen Negative Negative 08/13/2023 8:13 PM CDT STRM Type & Screen Expiration 08/16/2023 23:59 08/13/2023 7:58 PM CDT STRM Testing Location Marcio DEFAULT 08/13/2023 7:39 PM CDT STRM Blood (Blood, Venous) 08/13/2023 7:35 PM CDT 08/13/2023 7:39 PM CDT Carlos Alberto Henson M.D. LAB BLOOD BANK TEST ORDERABLES [facility] [address] [place], [place] [address]RUST STRM [facility] [facility] [address] [place] [address] * (ABNORMAL) Bacteria / Yomaira Culture, Blood #1 (08/13/2023 7:35 PM CDT) Bacteria/Cand jessica Culture, Blood ESCHERICHIA COLI Growth after 11 Hours (A) 08/16/2023 11:17 AM CDT DTL Comment: 3 of 3 Bottles, Susceptibilities performed on another specimen [id number] Blood (Blood, Peripheral Draw) 08/13/2023 7:35 PM CDT 08/13/2023 8:15 PM CDT Comment:Specimen Source Site : Blood Carlos Alberto Henson M.D. LAB MICROBIOLOGY - G ENERAL ORDERABLES Performing Organization Address [facility] Co de Phone Number [facility] [address] [place], [place] [phone] [place] [address] [address] [place] [address] * ECG 12 Lead (08/13/2023 7:02 PM CDT) Pathologist [facility] Ventricular Rate ECG/Min 128 BPM MUSE MA Interval 138 ms MUSE QRSD Interval 64 ms MUSE QT Interval 304 ms MUSE QTC Interval 443 ms MUSE P [place] 45 degrees MUSE R [place] 34 degrees MUSE T Wave [place] 46 degrees MUSE 08/13/2023 7:02 PM CDT [...] CDT Comment:Specimen Source Site : Blood Narrative [facility] - 08/16/2023 11:17 AM CDT Received [...] Organization Address City/[facility] Co de Phone Number [facility] [address] [place] [address], [facility] [address] [place] [address] * Magnesium (08/13/2023 5:27 PM CDT) Pathologist [facility] Magnesium, S 1.9 1.7 - 2.3 mg/dL 08/13/2023 6:12 PM CDT DTL Blood (Blood, Venous) 08/13/2023 5:27 PM CDT 08/13/2023 5:58 PM CDT Carlos Alberto Henson M.D. LAB BLOOD ADD-ON Performing Organization Address [facility] Co de Phone Number [facility] [address] [place] [address], [facility] [address] [place] [address] * (ABNORMAL) Hepatic Function Panel (08/13/2023 5:27 [...] Carlos Alberto Henson M.D. LAB BLOOD ADD-ON [facility] [address] [place] [address], [facility] [address] [place] [address] * (ABNORMAL) Basic Metabolic Panel (08/13/2023 5:27 [...] Organization Address City/[facility] Co de Phone Number [facility] [address] [place], [place] [phone] [place] [address] [address] [place] [address] * Prothrombin Time (PT) (08/13/2023 5:27 PM CDT) Pathologist [facility] Prothrombin Time, P 12.4 9.4 - [...] Organization Address City/[facility]/ZIP Co de Phone Number [facility] [address] [place], [place] [phone] [place], [place] [address]A [facility] [address] [place] [address] * (ABNORMAL) CBC with Differential, Blood (08/13/2023 [...] - 6.45 x10(9)/L 08/13/2023 5:33 PM CDT PM Lymphocytes 0.21(L) 0.95 - 3.07 x10(9)/L 08/13/2023 5:33 PM CDT ST[facility] Monocytes 0.48 0.26 - 0.81 x10(9)/L 08/13/2023 5:33 PM CDT [facility] Eosinophils <0.03 0.03 - 0.48 x10(9)/L 08/13/2023 5:33 PM CDT [facility] Basophils <0.03 0.01 - 0.08 x10(9)/L 08/13/2023 5:33 PM CDT [facility] Blood (Blood, Venous) 08/13/2023 5:27 PM CDT 08/13/2023 5:31 PM CDT Carlos Alberto Henson M.D. LAB BLOOD ADD-ON [facility] [address] [place] [address], [facility] [address] [place] [address] [facility] [address] [place] [address] * (ABNORMAL) Dipstick, Urine (08/13/2023 5:07 PM [...] Organization Address City/[facility]/ZIP Co de Phone Number [facility] [address] [place], [place] [phone] [place] [address] * Osmolality, Urine (08/13/2023 5:07 PM CDT) Osmolality, U 351 150 - 1150 mOsm/kg 08/13/2023 7:46 PM CDT DTL Urine 08/13/2023 5:07 PM CDT 08/13/2023 5:45 PM CDT Carlos Alberto Henson M.D. LAB URINE ORDERABLES Performing Organization Address City/[facility]/ZIP Co de Phone Number [facility] [address] [place] [address], [facility] [address] [address] * (ABNORMAL) Microscopic Manual (08/13/2023 5:07 PM CDT) Microscopy Abnormal 08/13/2023 7:57 PM CDT DTL RBC >100(A) <3 /hpf 08/13/2023 7:57 PM CDT DTL Dysmorphic RBC <25 <25 % 08/13/2023 7:57 PM CDT DTL WBC 51-100(A) /hpf 08/13/2023 7:[address] [facility] Comment: ----REFERENCE VALUE---- <4 ??(Males) <11 (Females) Urine 08/13/2023 5:07 PM CDT 08/13/2023 5:45 PM CDT Carlos Alberto Henson M.D. LAB URINE ORDERABLES Performing Organization Address [facility]/ZIP Co de Phone Number [facility] [address] [place] [address] * pH, Random, Urine (08/13/2023 5:07 PM CDT) pH, Random, U 7.0 4.5 - 8.0 08/13/2023 7:[address] [facility] Urine 08/13/2023 5:07 PM CDT 08/13/2023 5:45 PM CDT Carlos Alberto Henson M.D. LAB URINE ORDERABLES Performing Organization Address [facility] de Phone Number [facility] [address] [place] [address] * (ABNORMAL) Bacterial Culture, Aerobic + Susceptibility, Urine (08/13/2023 5:07 PM CDT) Urine Culture ESCHERICHIA COLI >100,000 cfu/mL (A) 08/15/2023 2:[address] [facility] Urine (Urine, Midstream) 08/13/2023 5:07 PM CDT [...] Alberto Henson M.D. LAB MICROBIOLOGY - [facility] ORDERABLES [facility] [address] [place] [address], [place] DTL [facility] [address] [place] [address] * (ABNORMAL) Urinalysis, with Microscopic: Urine, Midstream [...] CDT DTL Predicted 24 [place] [address](H) <229 mg/24 h 08/13/2023 8:50 PM CDT DTL Predicted Range [id number] mg/24 h 08/13/2023 8:50 PM CDT DTL Comment Micro done on <2.5 mL 08/13/2023 7:55 PM CDT DTL Urine (Urine, Midstream) 08/13/2023 5:07 PM CDT 08/13/2023 5:44 PM CDT Carlos Alberto Henson M.D. LAB URINE ORDERABLES [facility] [address] [place] [address], [facility] [address] [place] [address] * Interpretation of Outside CT Abdomen and [...] use home supply. 08/17/23: Id'ed by SISI. Count Includes [facility] Rx# [id number], filled 07/22/23. HAZARDOUS - Handle with care. Swallow whole. Do NOT crush, chew or open capsule. Given 08/26/2023 9:12 AM CDT 120 mg Given 08/25/2023 9:08 AM CDT 120 mg Given 08/24/2023 9:12 AM CDT 120 mg fat emulsion [id number]-[id number] & fish oil infusion 50 g (SMOFlipid) [...] Lactated Ringer's 1.5 mL/kg/hr ? 75 kg [place] weight (112.5 mL/hr, rounded to 113 mL/hr), intravenous, Continuous, Starting on Tue08/22/23 at 1030, Conditional Phase Pre-Gastrografin Administration. (Rate = 1.5 mL/kg/hr ideal body weight) Lactated Ringer's 0.75 mL/kg/hr ? 75 kg [place] weight (56.25 mL/hr, rounded to 56.3 mL/hr), [...] 5 mg, oral, Daily, First dose on Tue08/14/23 at 0900, mirabegron 50 mg daily was [...] use home supply. 08/17/23: Id'ed by SISI. Count Includes [facility] Rx# [id number], filled 07/22/23. HAZARDOUS - Handle with care. Swallow whole. Do NOT crush, chew or open capsule. 0912 (Given - Provider: Tayler Forrest R.N. - Comment: Pat Murray, -2nd RN) 0908 (Given - Provider: Tayler Forrest R.N. - Comment: Pt 's own med from home) 0912 (Given - Provider: Lupe Valdez R.N.) fat emulsion ckh-tgg-fwmqo & fish oil infusion 50 g (SMOFlipid) [...] RN)2124 (New Bag - Provider: Paola Salazar R.N.)2328 (Handoff - Provider: Edith Simental R.N. - Comment: herbert knight RN) 0407 (Rate/Dose Change - Provider: Edith Simental R.N.)0729 (Handoff - Provider: Lupe Valdez R.N. - Comment: Verified with JAMEL Sharma)1153 (Stopped - Provider: Lupe Valdez R.N.) Lactated Ringer's 1.5 mL/kg/hr ? 75 kg [place] weight (112.5 mL/hr, rounded to 113 mL/hr), intravenous, Continuous, Starting on Tue08/22/23 at 1030, Conditional Phase Pre-Gastrografin Administration. (Rate = 1.5 mL/kg/hr ideal body weight) Lactated Ringer's 0.75 mL/kg/hr ? 75 kg [place] weight (56.25 mL/hr, rounded to 56.3 mL/hr), [...] 1547 documented in this encounter Care Teams Substation Electrician Supervisor Relationship Specialty Start Date End Date Elsewhere, Pcp PCP - General Internal Medicine 08/13/23 documented as of this encounter
--- OUTSIDE RECORDS SUMMARY | 2023-09-03 05:36 | XMS_ITS | Encounter Summary ---
Author Organization [facility] Address [address] [place] [address] Care Team Providers Care Maintenance Service Supervisor Name Role Phone Elsewhere, Pcp Primary Care Provider Unavailabl e Encounter Details Date Type Department Care Team (Late st Contact Info) Description 08/23/2023 12:45 AM CDT Ancillary Procedure Department of Nursing Social History Tobacco Use Types Packs/Day Years Used Date Smoking Tobacco: Never Smokeless Tobacco: Never [facility] Utilities Answer Date Recorded In the past 12 months has [facility], gas, oil, or water company [...] CDT Procedure visit Department of Urology in [place], [place] [address] [place] [address] Sima Venegas M.D. [address] [place] [address] documented as of this encounter Procedures Procedure [...] on filedocumented in this encounter Care Teams Maintenance Service Supervisor Relationship Specialty Start Date End Date Elsewhere, Pcp PCP - General Internal Medicine 08/13/23 documented as of this encounter
--- OUTSIDE RECORDS SUMMARY | 2023-09-03 05:36 | XMS_ITS | Encounter Summary ---
Author Organization [facility] Address [address] [place] [address] Care Team Providers Care Mortgage Loan Coordinator Name Role Phone Elsewhere, Pcp Primary Care Provider Unavailabl e Encounter Details Date Type Department Care Team (Late st Contact Info) Description 08/15/2023 8:30 AM CDT Anesthesia Event RST ROMB MAIN OR [address] [place] [address] Hayde Song M.D. [address] [place] [address] Anesthesia Record Procedure Summary Procedure Name Responsible [...] Airways Type Details Placement Removal Wound 08/15/23; 957; N; Incision; Pannus; Mid 08/15/23 0958 by Janina Coronado, R.N. Peripheral IV Placement Date: 08/02; Existing LDA Placed by: Other hospital; Orientation: Left; Location: Antecubital; Removal Date: 08/15/23; Removal Time: 0908/13/23 0000 by Jose Haro, M.S.N., R.N. 08/15/23 09 by Rae Gonzalez APRN, HISTOLOGICAL ILLUSTRATOR, DNAP Peripheral IV Placement Date: 08/02; Existing LDA Placed by: Other hospital; Orientation: Anterior, Lower, Right; Location: Forearm; Removal Date: 08/22/23; Removal Time: 746; Removal Reason: Leaking 08/13/23 0000 by Jose Haro, M.S.N., R.N. 08/22/23 0747 by Jenny Ferguson Bladder Irrigation 08/13/23; 170; ANSHULS [place]; Continuous; Three-way; 24 Fr; 30 mL; Yes; 08/15/23; 1029; Per protocol 08/13/23 1706 by Favio August 08/15/23 1029 by Janina Coronado, R.N. ETT Placement Date: 10/02; Placement Time: 0840 (created via procedure documentation); Mask Ventilation: Not attempted; Technique: Video laryngoscopy; Type: Standard ETT; Single Lumen Tube Size: 7.5 mm; Cuffed: Yes; Location: Oral; Grade View: Grade 1; Insertion Attempts: 1; Placement Verification: Bilateral breath sounds, Positive ETCO2, Symmetrical chest wall movement; Removal Date: 08/15/23; Removal Time: 1253 08/15/23 0840 by Rae Gonzalez APRN, CRNA, DNAJay 08/15/23 1253 by Rae Gonzalez APRN, CRNA, DNAP Peripheral IV Placement Date: 10/02; Placement Time: 0855; Catheter Size: 16 G; Orientation: Left; Location: Hand; Removal Date: 08/25/23; Removal Time: 1103; Removal Reason: Occluded 08/15/23 0855 by Rae Gonzalez APRN, CRNA, DNAP 08/25/23 1103 by Nancy Lambert Arterial Line Placement Date: 10/02; Placemnt Time: 0951 (created via procedure documentation); Size: 20 G; Orientation: Left; Location: Brachial; Site Prep: Chlorhexidine (Preferred); Technique: Ultrasound guidance; Insertion Attempts: 3; Securement: Securement dressing, Securement device; Removal Date: 08/15/23; Removal Time: 1326; Removal Reason: Per protocol 08/15/23 0951 by Hayde Song M.D. 08/15/23 1326 by Bobby Green RNarendra Bladder Irrigation 08/15/23; 1143; Dr. De Paz; Continuous; Three-way; 24 Fr; 30 mL (balloon filled with 10 ml water); Yes; 08/31/23; 1304 08/15/23 1143 by Janina Coronado R.N. 08/31/23 1304 by Jacqui Mehta R.N. Closed/Suction Drain 08/15/23; 1215; Med ial; LLQ; Bulb; 15 Fr.; No longer in place 08/15/23 1215 by Janina Coronado R.N. 08/26/23 0000 by Lupe Valdez R.N. NG/OG Tube 08/15/23; 1234; Nasogastric; Right; 08/17/23; 1430 08/15/23 1234 by Rae Gonzalez APRN, CRNA, DNAP 08/17/23 1430 by Jr Samuel R.N. documented in this encounter Social History Tobacco Use Types Packs/Day Years Used Date Smoking Tobacco: Never Smokeless Tobacco: Never [facility] Utilities Answer Date Recorded In the past 12 months has [facility] [employer], gas, oil, or water [employer] threatened to shut off services in your [...] your living situation today? I have a [facility] place to live 08/13/2023 Sex and Gender Information Value Date Recorded Sex Assigned at Not on file Gender Identity Not on file Sexual Orientation Not on file documented as of this encounter OR Notes * Anesthesia Postprocedure Evaluation - Nereida Liang M.D. - 08/15/2023 2:09 PM CDT Patient: Kalen Vega Procedure Summary Date: 08/15/23 Room / Location: [address] [facility] in [place], [place] Anesthesia Start: 829 Anesthesia Stop: 1317 Procedures: Palliative EXPLORATORY LAPAROTOMY, CYSTOTOMY CLOSURE, RIGHT [...] ETT location: oral VL device: glide scope [place] scope blade size: 4 Tube size: 7.5 [...] & H&P Assessment Procedure Summary Date/Time: 08/15/23 5416 Procedure: Palliative EXPLORATORY LAPAROTOMY, CYSTOTOMY CLOSURE, RIGHT URETERAL STENT EXCHANGE, PROCEED INDICATED, possible multiple trips 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 Location: [place] [address] / [facility] in [place], [place] Providers: Boubacar Brock M.D. Pertinent components [...] patient / legal guardian, or through an deliverer pharmacy; patient evaluated and approved for anesthesia / [...] CDT Procedure visit Department of Urology in [place], [place] [address] [place] [address] Sima Venegas M.D. [address] [place] [address] documented as of this encounter Procedures Procedure Name Priority Date/Time Associated Diagnosis Comments MC ANE INVASIVE CATH WITH ULTRASOUND Routine 08/15/2023 9:51 AM CDT LDA ANE ARTERIAL LINE INSERTION Routine 08/15/2023 9:51 AM CDT WI US GUIDE VASC ACCESS Routine 08/15/2023 9:51 AM CDT WI ARTL CATH/CNULA MONITOR PERC Routine 08/15/2023 9:51 AM CDT LDA ANE ENDOTRACHEAL AIRWAY Routine 08/15/2023 8:40 AM CDT documented in this encounter Results * WI ARTL CATH/CNULA MONITOR PERC, WI US GUIDE VASC ACCESS, LDA ANE ARTERIAL [...] ETT location: oral VL device: glide scope [place] scope blade size: 4 Tube size: 7.5 [...] mg documented in this encounter Care Teams Mortgage Loan Coordinator Relationship Specialty Start Date End Date Elsewhere, Pcp PCP - General Internal Medicine 08/13/23 documented as of this encounter
--- OUTSIDE RECORDS SUMMARY | 2023-09-03 05:37 | XMS_ITS | Continuity of Care Document ---
Author Organization [facility] Address [address] [place] [address] Care Team Providers Care Women'S Soccer Coach Name Role Phone MASOUD SAUER Primary Care Provider [phone] Assessment No assessment recorded. Plan of Treatment Reminders Order Date Submit Date Provider Last Modified By Organization Details Last Modified Time Details Appointments None recorded . Lab urinalys is, dipstick 2023 024 [email or web address] [facility], [address], [place], [address], 4 15:08:54 culture, urine 2023 024 [facility], [address] [facility], [place] [address], [place], [address], 4 10:11:11 Referral None recorded . Procedures None recorded . Surgeries None recorded . Imaging None recorded . Medication Orders Bactrim DS 800 mg-160 mg tablet 2023 024 [email or web address] [id number], [address] [place], [place], [id number], 4 16:19:28 Patient TargetsNo targets recorded. Patient InstructionsNo instructions recorded. Reason for Referral None Reported. Results Created Date Observation Date Name Description Value Unit Range Abnormal Flag LastModifiedBy Organization Detail LastModifiedTime 06/23/19 24 06/23/2023 urina lysis , dipst ick Color-Status Red Not Available [facility] [address], [place], [address], 06/23/2023 15:08:10 06/23/19 24 06/23/2023 urina lysis , dipst ick pH-Status 7.5 Not Available [facility] [address], [place], [address], 06/23/2023 15:08:10 06/23/19 24 06/23/2023 urina lysis , dipst ick Protein-Stat us >=9.0 Not Available [facility] [address], [place], [address], 06/23/2023 15:08:10 06/23/19 24 06/23/2023 urina lysis , dipst ick Nitrates-Sta tus negati ve Not Available [facility] [address], [place], [address], 06/23/2023 15:08:10 06/23/19 24 06/23/2023 urina lysis , dipst ick Blood-Status Large Not Available [facility] [address], [place], [address], 06/23/2023 15:08:10 06/23/19 24 06/23/2023 urina lysis , dipst ick Leuko-Status Negati ve Not Available [facility] [address], [place], [address], 06/23/2023 15:08:10 06/23/19 24 06/23/2023 urina lysis , dipst ick Specimen Type Voided Not Available [facility] [address], [place], [address], 06/23/2023 15:08:10 07/04/19 24 07/01/2023 CT, abdom en + pelvi s, w/o contr ast No observ ation record ed. [email or web address] [facility] [address], [place], [address], 09/01/2023 14:40:29 07/18/19 24 07/18/2023 XR, kidne y + urete r + bladd er No observ ation record ed. [email or web address] [facility] [address], [place], [address], 07/22/2023 15:56:19 Result Notes None recorded. Procedures Surgical History Date Name Laterality Status Provider Name and Address Organization Details Recorded Time Bladder Scan completed Rabia Ferrell [facility] 06/23/2023 15:08:00 Cystoscopy completed Nicola Ware MD [address] [place] [address], [phone], [facility] 12/30/2021 17:11:17 Colonoscopy completed Nicola Ware MD [address] [place] [address],[address], [address], [facility] 12/30/2021 17:11:22 Imaging Results None [...] COLONOSCO PY PREP INSTRUCTI ONS RECEIVED FROM [facility] active Not Available Not Available No t Available furosemide 20 mg tablet TAKE 1 TABLET BY MOUTH DAILY active Not Available Not Available No t Available cefuroxime axetil 500 mg tablet active Not Available Not Available No t Available polyethylen e glycol 3350 17 gram/dose oral powder MIX AND DRINK DIRECTED IN COLONOSCO PY PREP INSTRUCTI ONS RECEIVED FROM [facility] active Not Available Not Available No t [...] Status Never Smoker Nicola Ware MD [address] [facility] [address], [place], [address], [facility] 12/30/2021 17:11:00 What Is Your Level [...] Encounter Closed Date Diagnosis/Indication Diagnosis SNOMED-CT Code [id number] Nicola Ware MD [facility] [address] [place] [address] 06/23/2023 14:16:52 06/24/2023 08:40:38 Blood in urine [id number] Health Concerns Section Related Observation LastModified by Organization Detai ls LastModified Time None Recorded Concern Status LastModified by Organization Details LastModified Time None Recorded Payers Encounter Date Sequence Insurance Name Policy Number Policy Krishnan Covered Member ID Krishnan Member ID Guarantor Name 06/23/2023 1 [employer] (MEDICARE REPLACEMENT/ ADVANTAGE - PPO) [id number] José Miguel Vega [id number] José Miguel Vega Notes Date Note Type Note Provider Name and Address Organization Details Recorded Time 06/23/2023 text/html HPI Notes: 83 Y male here after calling triage this AM with hematuria/pain with urination. Patient has stent in place, last exchange 02/08/2022. 06/23/23 visit completed by Curry Ware MD [address] [place] [address],[address], [address], [facility] 06/23/2023 16:19:33
--- OUTSIDE RECORDS SUMMARY | 2023-09-03 05:37 | XMS_ITS | Encounter Summary ---
Author Organization [facility] Address [address] [place] [address] Care Team Providers Care Egg Smeller Name Role Phone Elsewhere, Pcp Primary Care Provider Unavailabl e Encounter Details Date Type Department Care Team (Late st Contact Info) Description 08/15/2023 7:55 AM CDT - 08/15/2023 11:23 AM CDT Surgery RST ROMB MAIN OR [address] [place] [address] Boubacar Brock M.D. [address] [place] [address] Palliative EXPLORATORY LAPAROTOMY, CYSTOTOMY CLOSURE, RIGHT URETERAL STENT EXCHANGE Social History Tobacco Use Types Packs/Day Years Used Date Smoking Tobacco: Never Smokeless Tobacco: Never [facility] Utilities Answer Date Recorded In the past 12 months has [facility] [employer] gas, oil, or water [employer] threatened to shut off services in your [...] your living situation today? I have a [facility] place to live 08/13/2023 Sex and [...] AM CDT DISCHARGE SUMMARY BRIEF OVERVIEW Hospital: [facility] Discharge Provider: Boubacar Brock M.D. Primary Team: [facility] Urology Surgery - Chief Helga [...] M.D.Wen, Lexiaochuan, M.D.Premo, Hayley, M.D.Botkin, Hannah, M.D. [facility] ROMB OR DISCHARGE DISPOSITION Home or Self Care [1] ACTIVE ISSUES REQUIRING FOLLOW UP OUTPATIENT FOLLOW UP Scheduled Appointments 08/26/2023 1:00 PM [facility] Radiology For appointment details refer [...] he felt completely obstructed and presented to [place] [facility]. [place] Course Attempted Tabares insertion but bladder irrigation was unsuccessful on multiple attempts. Hung 1U pRBC's. Given some volume and transferred to [facility] ICU ICU Course Urology consulted and [...] CONSULT TO NUTRITION SUPPORT IP CONSULT TO MARKETING PROPOSAL COORDINATOR WOUND CARE CONDITION AT DISCHARGE stable [...] he felt completely obstructed and presented to [place] [facility]. [place] Course Attempted Tabares insertion but bladder irrigation was unsuccessful on multiple attempts. Hung 1U pRBC's. Given some volume and transferred to [facility] ICU ICU Course Urology consulted and [...] PM CDT You were discharged from the [facility] Urology Surgery - Chief A - Blue Service. Please identify this service name if you call with questions after hospitalization. * Attachments The following attachments cannot be sent through Care Everywhere. * Bacitracin (On the skin) (Filipino) * Cefdinir (By mouth) (Filipino) * Trospium (By mouth) (Filipino) documented in this encounter Medications at Time [...] another provider. * Chary Diamond M.A., O.T., [facility] - 08/26/2023 10:21 AM CDT Occupational Therapy [facility] Inpatient Treatment SUBJECTIVE Patient's Name: Kalen Vega Referring/Attending Provider: Boubacar Brock M.D. Reason for Referral: Occupational Therapy Evaluation and Treatment History of Present Illness: Kalen Vega is a 83 y.o. male who was admitted to [facility] in [place] on 08/13/2023 for Hematuria [R31.9]. Precautions Other Precautions: Abdominal, fall precautions, monitor tachycardia and hypertension Pain Assessment: Pain not reported during session. Subjective Comments: Agreeable to therapy session. Team Communication: The patient's status was discussed and coordination of care occurred with RN, Family/Caregiver, nurse tech Family/Caregiver Present: son and [id number] OBJECTIVE Vital Signs: Vitals not formally assessed during session. No concerns during chart review and the patient had nosigns or symptoms consistent with vital changes during therapy session. Outcome Measures: [facility] Inpatient Short Form: Putting on [...] at or below 17 Clinicians answer the [facility] Inpatient Short Form based on [...] through pant leg first. - Adaptive Equipment: Director Of Clinical Applications TOILETING - Assist Level: Maximal Assist - [...] (Edge of bed) - Assist Level: Modified Dawes - Equipment: bed rail - Therapist Delivery: assessed, instructed, assisted - Adaptive Equipment: leg silk folder trialed ; however, patient able to move [...] extremity (stiff knee) first. Recommended adaptive equipment: Director Of Clinical Applications. Toileting - Patient instructed on accurate positioning [...] maximal exertion Handouts provided: Bathroom Safety Equipment [id number], Techniques to Help You Save Energy [id number] Patient was left in bedside chair with [...] health care OBJECTIVE Patient is admitted in [place] 6C -room 121 ASSESSMENT / PLAN PIPELINES LABORERmanager of marketing met with patient and son Kar to inform them of home health care acceptance for PT/OT. Patient's son Kar and [id number] will provide transportation at the time of discharge. PLAN Patient to discharge home with home health care. Home Medical Care - Admitted Since 08/13/2023 Service Provider Selected Services Address Phone Fax Patient Preferred [facility] [address] [facility] [phone] -- Grinder Set Up Operator Internal: Ghazal NURSING: - Complete documentation in the Discharge Navigator including Nursing Report Info and Facility/NextLevel of Care Info - Call report and arrange for the patient's first visit - Send After Visit Summary and required packet of dismissal information with patient, including advance directive. PRIMARY SERVICE: - Please provide a non-[facility] health order for: physical therapy and occupational [...] be provided by family--patient's son Kar and [id number]. 3. guide recommended reaching out to family, friends, and neighbors for assistance. 4. guide provided information regarding the dismissal process. Damaris [...] #1 Hematuria Please page [facility] ([phone]) or [facility] ([phone]) Nutrition Support Service pager with questions. * Emeterio Buchanan PCarlos, D.P.T., GCS - 08/25/2023 9:35 AM CDT Physical Therapy Inpatient Treatment SUBJECTIVE Patient's Name: Kalen Vega Referring/Attending Provider: Boubacar Brock M.D. Reason for Referral: Physical Therapy Evaluate and Treat History of Present Illness: Kalen Vega is a 83 y.o. male who was admitted to [facility] in [place] on 08/13/2023 for Hematuria [R31.9] Precautions Other [...] throughout session; within normal ranges. Outcome Measures: [facility] Inpatient Short Form: [facility] Basic Mobility (V.2) How much [...] 3-5 steps with a railing?: A Little [facility] Basic Mobility (V.2) Raw Score: 18 [facility] Basic Mobility (V.2) Standardized Score: 41.05 Interpretation: Based on scoring guidelines using the raw score value: Those going to home had an average score at or above 18 Those going to facility had an average score at or below 17 Clinicians answer the [facility] Inpatient Short Form based on observed patient activity and/or clinical judgement (ie. patient can be scored without physically performing each activity) Therapeutic Interventions: SIT TO STAND x3: Assistance Level: Supervision static safe house fit with adult there which they usually [place] with a difference educated fully know who [...] Naseem Buchanan P.T., D.P.T., GCS * Ivy Hernandez O.T. - 08/25/2023 9:18 AM CDT Occupational Therapy [facility] Inpatient Treatment SUBJECTIVE Patient's Name: Kalen Vega Referring/Attending Provider: Boubacar Brock M.D. Reason for Referral: Occupational Therapy Evaluation and Treatment History of Present Illness: Kalen Vega is a 83 y.o. male who was admitted to [facility] in [place] on 08/13/2023 for Hematuria [R31.9]. Precautions Other Precautions: Abdominal, fall precautions, monitor tachycardia and hypertension Pain Assessment: Pain not reported during session. Subjective Comments: Agreeable to therapy session. Team Communication: The patient's status was discussed and coordination of care occurred with RN, PT OBJECTIVE Vital Signs: Vitals monitored throughout session; within normal ranges. Outcome Measures: [facility] Inpatient Short Form: Putting on [...] at or below 17 Clinicians answer the [facility] Inpatient Short Form based on [...] including figure four technique. Recommended adaptive equipment: Director Of Clinical Applications and Sock Aid. Toileting - Patient instructed [...] and modification tools as needed including leg silk folder and/or bed adjustments. Bathroom DME: - Educated [...] in place draining clear yellow urine I/O ([id number]): Fifty-five cc serosanguineous from the drain 1 L urine output./24 H Labs: Hemoglobin 8.1 from 8.3 Cr 1.0 Cultures: Blood and urine cultures from 08/12 growing nunez susceptible E coli Repeat blood culture 08/14 negative ASSESSMENT AND PLAN: Mr. eVga is a pleasant 83 y.o. male with [...] locallyfor CBI. He was subsequently transferred to [facility] 08/12 for difficulty irrigating his catheter [...] have him follow up with his local kiln stoker Comorbidities: --history of DVT status post IVC [...] discussed with Dr. Venegas, chief urology resident technology education teacher. Pager during business hours: [phone] Pager after hours: [phone] * Emeterio Buchanan P.T., D.P.T., [facility] - 08/24/2023 10:46 AM CDT Physical Therapy Inpatient Treatment SUBJECTIVE Patient's Name: Kalen Vega Referring/Attending Provider: Boubacar Brock M.D. Reason for Referral: Physical Therapy Evaluate and Treat History of Present Illness: Kalen Vega is a 83 y.o. male who was admitted to [facility] in [place] on 08/13/2023 for Hematuria [R31.9] Precautions Other [...] %, and O2flow: Room air Outcome Measures: [facility] Inpatient Short Form: -[facility] Basic Mobility (V.2) How much help from [...] 3-5 steps with a railing?: A Lot -[facility] Basic Mobility (V.2) Raw Score: 17 [facility] Basic Mobility (V.2) Standardized Score: 39.67 Interpretation: Based on scoring guidelines using the raw score value: Those going to home had an average score at or above 18 Those going to facility had an average score at or below 17 Clinicians answer the [facility] Inpatient Short Form based on [...] baseline. PT Goal #2: Patient will perform tac-ns-klzjd transfer with modified independence and least restrictive [...] Total Kcal/day: 1370 based on 84 % [place] Non-standard additives: K 80 mEq Phos 30 [...] #1 Hematuria Please page [facility] ([phone]) or [facility] ([phone]) Nutrition Support Service pager with questions. * [...] catheter in place draining light smith I/O ([id number]): Forty-two cc serosanguineous from the drain 2.2 [...] locallyfor CBI. He was subsequently transferred to [facility] 08/12 for difficulty irrigating his catheter [...] have him follow up with his local kiln stoker Comorbidities: --history of DVT status post IVC [...] discussed with Dr. Venegas, chief urology resident technology education teacher. Pager during business hours: [phone] Pager after hours: [phone] * Deanne Mike L.G.STimi, M.S.W. - 08/23/2023 11:25 AM CDT SUBJECTIVE Social Work spoke with [facility]. They cannot provide snf at this time. They can provide OT/PT [...] anticipated discharge date of 08/24/23-08/26/23. Referrals sent: [facility] [place] - [facility] (out of service area) [facility] - [facility] ASSESSMENT / PLAN ASSESSMENT Patient has robust family support including a son living with him. PLAN Patient desires home health care through [facility]. Social Work will continue to follow to provide support. Social Work will continue to assist with discharge needs. Shorty Sun, M.S.W. 08/23/23 * Jazmine Benítez R.N., C.W.C.N. - 08/23/2023 11:10 AM CDT [facility] Wound RN consulted to assess [...] stent and hematuria who is transferred from [place] ED with 3 days of hematuria and [...] None Unable to Measure Y *Wound Bed Closed;[place];Red Tissue Exposed None Odor None *Exudate Amount [...] 30 minutes > 30 minutes Ongoing management Nursing;Wound/supervisor blast furnace auxiliaries Partial head to toe skin assessment completed [...] nursing. They agree to the plan. The [facility] RN will sign-off. Please place [...] 83 y.o. male who was admitted to [facility] in [place] on 08/13/2023 for Hematuria [R31.9] Precautions Other [...] 3-5 steps with a railing?: A Lot [facility] Basic Mobility (V.2) Raw Score: 17 [facility] Basic Mobility (V.2) Standardized Score: 39.67 Interpretation: Based on scoring guidelines using the raw score value: Those going to home had an average score at or above 18 Those going to facility had an average score at or below 17 Clinicians answer the [facility] Inpatient Short Form based on [...] baseline. PT Goal #2: Patient will perform ebn-ns-antpg transfer with modified independence and least restrictive [...] Prophylaxis: low-intensity heparin nomogram ID: E-coli bacteremia (renea). Ceftriaxone 2 gm Q 24hr started 08/14. [...] Total Kcal/day: 1370 based on 84 % Garcia-[place] Non-standard additives: MAX chloride Thiamine 100 mg [...] #1 Hematuria Please page [facility] ([phone]) or [facility] ([phone]) Nutrition Support Service pager with questions. * Ivy Hernandez, O.T. - 08/23/2023 8:30 AM CDT [facility]ational Therapy [facility] SUBJECTIVE Patient's Name: Kalen Vega Referring/Attending Provider: Boubacar Brock M.D. Reason for Referral: Occupational Therapy Evaluation and Treatment History of Present Illness: Kalen Vega is a 83 y.o. male who was admitted to [facility] in [place] on 08/13/2023 for Hematuria [R31.9]. Precautions Other Precautions: Abdominal, fall precautions, monitor tachycardia and hypertension Pain Assessment: Pain not reported during session. Subjective Comments: Agreeable to therapy session. Team Communication: The patient's status was discussed and coordination of care occurred with RN, PT OBJECTIVE Vital Signs: Vitals monitored throughout session; within normal ranges. Outcome Measures: [facility] Inpatient Short Form: Putting on [...] at or below 17 Clinicians answer the [facility] Inpatient Short Form based on [...] UROLOGY CHIEF SERVICE PROGRESS NOTE SUBJECTIVE Kalen Veag was seen by the team during morning [...] catheter in place draining clear yellow I/O ([id number]): 73 cc serosanguineous from the drain Seven [...] locallyfor CBI. 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 [facility] Summary: Diet: NPO, TPN Activity: Ad kong DVT PPX: heparin drip GI PPX: Pantoprazole Bowel Regimen:N/A IVF: D5W with KCL 20 @100 mL/hr Abx/Microbiology: Ceftriaxone Pain Control: Tylenol, oxycodone 08/18. Scheduled trospium Home Meds Resumed: Metoprolol, tamsulosin, rosuvastatin Held Home Meds: None Consults: POWER, KESHIA Hernandez M.D. 08/23/2023 Please page the Urology Chief Service with questions or concerns. Patient seen and discussed with Dr. Venegas, chief urology resident technology education teacher. Pager during business hours: [phone] Pager after hours: [phone] * Chary Diamond M.A., O.T., BCP - [...] OBJECTIVE Patient is anticipated to remain at [facility] for 3-5 days. Referrals sent: [facility] ASSESSMENT / PLAN ASSESSMENT Patient has robust family support including a son living with him. PLAN Patient desires home health care through [facility]. Social Work will continue to follow to provide support. Social Work will continue to assist with discharge needs. Shorty Sun, M.S.W. 08/22/23 * Emeterio Buchanan P.T., D.P.T., [facility] - 08/22/2023 2:27 PM CDT Physical Therapy Inpatient Treatment SUBJECTIVE Patient's Name: Kalen Vega Referring/Attending Provider: Boubacar Brock M.D. Reason for Referral: Physical Therapy Evaluate and Treat History of Present Illness: Kalen Vega is a 83 y.o. male who was admitted to [facility] in [place] on 08/13/2023 for Hematuria [R31.9] Precautions Other [...] hypotension or respiratory distress. . Outcome Measures: [facility] Inpatient Short Form: -[facility] Basic Mobility (V.2) How much help from [...] 3-5 steps with a railing?: A Lot -[facility] Basic Mobility (V.2) Raw Score: 17 -[facility] Basic Mobility (V.2) Standardized Score: 39.67 Interpretation: Based on scoring guidelines using the raw score value: Those going to home had an average score at or above 18 Those going to facility had an average score at or below 17 Clinicians answer the [facility] Inpatient Short Form based on [...] baseline. PT Goal #2: Patient will perform gre-cv-lgqnk transfer with modified independence and least restrictive [...] D.P.T., GCS * Demarco Salazar Pharm.D., R.Ph., [facility] - 08/22/2023 10:57 AM CDT Pharmacist [...] Total Kcal/day: 1370 based on 84 % Garcia[place] Non-standard additives: MAX chloride Thiamine 100 mg [...] CDT UROLOGY CHIEF SERVICE PROGRESS NOTE SUBJECTIVE Kalenjersey Vega was seen by the team during [...] place draining light smith colored urine I/O ([id number]): CBI on slow drip 75 cc serosanguineous [...] locallyfor CBI. He was subsequently transferred to [facility] 08/12 for difficulty irrigating his catheter [...] have him follow up with his local kiln stoker Comorbidities: --history of DVT status post IVC [...] discussed with Dr. Venegas, chief urology resident technology education teacher. Pager during business hours: [phone] Pager after hours: [phone] * Qamar Jim, PharmJonahD., R.Ph. - 08/21/2023 10:43 AM CDT Images [...] place draining clear smith colored urine I/O ([id number]): 1800 cc urine output 75 cc serosanguineous [...] locallyfor CBI. He was subsequently transferred to [facility] 08/12 for difficulty irrigating his catheter [...] have him follow up with his local kiln stoker Comorbidities: --history of DVT status post IVC [...] discussed with Dr. Venegas, chief urology resident technology education teacher. Pager during business hours: [phone] Pager after hours: [phone] * Lizette Harvey M.D. - 08/20/2023 8:08 [...] draining clear thin merlot colored urine I/O ([id number]): 240 cc p.o. intake 760 cc urine [...] locallyfor CBI. He was subsequently transferred to [facility] 08/12 for difficulty irrigating his catheter [...] have him follow up with his local kiln stoker Comorbidities: --history of DVT status post IVC [...] questions or concerns. Pager during business hours: [phone] Pager after hours: [phone] * Qamar Jim PharmJonahD., R.Ph. - 08/20/2023 [...] Jim Pharm.D., R.Ph. * Lisa Seaman, O.T., [facility] - 08/19/2023 2:26 PM CDT Occupational Therapy [facility] Inpatient Treatment SUBJECTIVE Patient's Name: Kalen Vega Referring/Attending Provider: Boubacar Brock M.D. Reason for Referral: Occupational Therapy Evaluation and Treatment History of Present Illness: Kalen Vega is a 83 y.o. male who was admitted to [facility] in [place] on 08/13/2023 for Hematuria [R31.9]. Precautions Other [...] at or below 17 Clinicians answer the [facility] Inpatient Short Form based on [...] about patient's nutritional care please contact pager [phone] on weekdays or [phone] on weekends/holidays. NUTRITION ASSESSMENT: Mr. Vega is [...] Nutrition related medical/surgical history: CAD S/P stents, UJNITO-P ANTHROPOMETRICS: Height: 180 cm Admission Weight: 91.2 kg (08/13/2023) Current Weight: 94.8 kg BMI (Calculated): 29.3 kg/m?? Weight change since admission: 3.6 kg Weight Change History: 04/05/23=94.3 (via care everywhere) ESTIMATED NEEDS: Total Calorie Needs: 1708-1596 calories/day Method to Estimate Energy Needs: kcal/kg [...] 83 y.o. male who was admitted to [facility] in [place] on 08/13/2023 for Hematuria [R31.9] Precautions Other [...] 3-5 steps with a railing?: A Little -[facility] Basic Mobility (V.2) Raw Score: 18 -[facility] Basic Mobility (V.2) Standardized Score: 41.05 Interpretation: Based on scoring guidelines using the raw score value: Those going to home had an average score at or above 18 Those going to facility had an average score at or below 17 Clinicians answer the -[facility] Inpatient Short Form based on observed patient [...] Ongoing PT Goal #2: Patient will perform qib-po-cynda transfer with modified independence and least restrictive [...] Scott Pina P.T., D.P.T. * Chance Cassidy PharmJonahD., R.Ph. - 08/19/2023 9:28 AM CDT Images [...] unit/kg/h. Will recheck aPTT tomorrow morning. Marie Cassidy R.Ph., Pharm.D. * Paula Hernandez M.D. - [...] in place draining clear pink urine I/O ([id number]): 370 p.o. intake 1 L urine output [...] locallyfor I. He was subsequently transferred to [facility] 08/12 for difficulty irrigating his catheter [...] 2.5 mg BID eliquis initiated 08/15 per [facility] med curbside recs --transition from [...] have him follow up with his local kiln stoker Comorbidities: --history of DVT status post IVC [...] questions or concerns. Pager during business hours: [phone] Pager after hours: [phone] * Lisa Seaman N, O.T., JODY - 08/18/2023 11:15 AM CDT Occupational Therapy [facility] Inpatient Treatment SUBJECTIVE Patient's Name: Kalen Vega Referring/Attending Provider: Boubacar Brock M.D. Reason for Referral: Occupational Therapy Evaluation and Treatment History of Present Illness: Kalen Vega is a 83 y.o. male who was admitted to [facility] in [place] on 08/13/2023 for Hematuria [R31.9]. Precautions Other [...] pressure: 168/97 - nurse notified Outcome Measures: [facility] Inpatient Short Form: Putting on [...] at or below 17 Clinicians answer the [facility] Inpatient Short Form based on [...] doffing over it last. Recommended adaptive equipment: Director Of Clinical Applications and Sock Aid. Patient was left in bedside chair, with nursing/CHEMICAL ENGINEERING TECHNOLOGIST at end of session with call light [...] Lisa Seaman O.T., MOT * Scott Pina PCarlos, D.P.T. - 08/18/2023 8:18 AM CDT Physical Therapy Inpatient Treatment SUBJECTIVE Patient's Name: Kalen Vega Referring/Attending Provider: Boubacar Brock M.D. Reason for Referral: Physical Therapy Evaluate and Treat History of Present Illness: Kalen Vega is a 83 y.o. male who was admitted to [facility] in [place] on 08/13/2023 for Hematuria [R31.9] Precautions Other [...] vital signs with primary service. Outcome Measures: -[facility] Inpatient Short Form: -[facility] Basic Mobility (V.2) How much help from [...] 3-5 steps with a railing?: A Little AM-[facility] Basic Mobility (V.2) Raw Score: 18 AM-PAC Basic Mobility (V.2) Standardized Score: 41.05 Interpretation: Based on scoring guidelines using the raw score value: Those going to home had an average score at or above 18 Those going to facility had an average score at or below 17 Clinicians answer the -[facility] Inpatient Short Form based on observed patient [...] following coordination of care occurred with the waitangi tribunal member/Caregiver Present: No Patient was left in bedside [...] Progressing PT Goal #2: Patient will perform ffv-ab-anggn transfer with modified independence and least restrictive [...] in place draining clear pink urine I/O ([id number]): 1.2 L p.o. intake 1 L urine [...] locallyfor CBI. He was subsequently transferred to [facility] 08/12 for difficulty irrigating his catheter [...] 2.5 mg BID eliquis initiated 08/[facility] rec --transition from eliquis ppx to [...] questions or concerns. Pager during business hours: [phone] Pager after hours: [phone] * Tayler Greenwood M.D., M.Ed. - 08/17/2023 [...] the patient follow up with his primary kiln stoker at discharge we will which we will [...] MG) BY MOUTH DAILY * Chance Cassidy Pharm.D., R.Ph. - 08/17/2023 11:30 AM CDT Pharmacist Progress Note Reason for admission: 83 y/o M with who had cystoscopy with right ureteral stent exchange on 07/18/2023 presents to MICU on 08/12 with hematuria. 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 Tfr'ed to floor 5/6/24 PMH: Metastatic prostate cancer, Hx of DVT/PE [...] Will restart home enzalutamide today (own supply). Pharm. LilyD., R.Ph. INPATIENT MED LIST: acetaminophen, 650 mg, [...] Ringer's Lactated Ringer's * Lisa Seaman OMarlon., [facility] - 08/17/2023 10:47 AM CDT Occupational Therapy [facility] Inpatient Treatment SUBJECTIVE Patient's Name: Kalen Vega Referring/Attending Provider: Boubacar Brock M.D. Reason for Referral: Occupational Therapy Evaluation and Treatment History of Present Illness: Kalen Vega is a 83 y.o. male who was admitted to [facility] in [place] on 08/13/2023 for Hematuria [R31.9]. Precautions Other Precautions: abdominal; fall risk; watch HR Pain Assessment: Pain not reported during session. Subjective Comments: Patient greeted in bed and agreeable to therapy session. Team Communication: The patient's status was discussed and coordination of care occurred with RN OBJECTIVE Vital Signs: Vitals taken during session: Pulse rate: 102-128 bpm Outcome Measures: [facility] Inpatient Short Form: Putting on [...] at or below 17 Clinicians answer the [facility] Inpatient Short Form based on [...] Total Treatment Time (min): 24 min Tara Madden.TJonah, MOT * Paula Hernandez M.D. - 08/17/2023 [...] in place draining clear pink urine I/O ([id number]): NG tube 200 cc Two hundred sixty-five [...] locallyfor CBI. He was subsequently transferred to [facility] 08/12 for difficulty irrigating his catheter [...] questions or concerns. Pager during business hours: [phone] Pager after hours: [phone] * Audi De Luna P.TJonah, D.P.T. - 08/16/2023 3:05 PM CDT 08/16/23 3375 Reason Therapy Missed Reason Therapy Missed Receiving [...] in place draining clear pink urine I/O ([id number]): NG tube 200 cc Two hundred sixty-five [...] locallyfor CBI. He was subsequently transferred to [facility] 08/12 for difficulty irrigating his catheter [...] questions or concerns. Pager during business hours: [phone] Pager after hours: [phone] * Paula Hernandez M.D. - 08/15/2023 9:09 AM CDT PROGRESS NOTE: No events. AFVSS. Pain controlled. No flatus. No further emesis overnight. Abdomen more distended than yesterday but remained soft, tender to deep palpation only, no rebound. Twenty-four Haitian Alcock three-way catheter remains off CBI, draining [...] for CBI. He was subsequently transferred to [facility] 08/12 for difficulty irrigating his catheter [...] risks associated with surgery and anesthesia including LA, stroke, and VTE were also discussed. Finally, [...] above was discussed with Dr. Brock, urology process improvement consultant on-call who is in agreement with [...] Family to bring his home enzalutamide from [place] Irvin Franco Pharm.D., R.Ph. * Jakob De Paz M.D. - 08/14/2023 11:34 AM CDT PROGRESS NOTE: No events. AFVSS. Pain controlled. No flatus. Nauseous and had 2 episodes of emesis. Abdomen more distended than yesterday but remained soft, tender to deep palpation only, no rebound. Twenty-four Haitian Alcock three-way catheter remains off CBI, draining [...] for CBI. He was subsequently transferred to [facility] 08/12 for difficulty irrigating his catheter [...] above was discussed with Dr. Brock, urology process improvement consultant on-call who is in agreement with the lsia outlined. Electronically signed by: Jakob De Paz [...] Patient discussed with Dr. Sylvester. Page CCM3 [id number] Carlos Alberto Henson M.D. PGY-1 CCM 3 [...] care as per CCM3. * Irvin Franco, Mireille.D., R.Ph. - 08/13/2023 3:54 PM CDT Pharmacist [...] who have asked we place a 24 Haitian 3-way urinary catheter pending evaluation. We will [...] stent and hematuria who is transferred from [facility] ED with 3 days of hematuria [...] him to present to local hospital in [place]. OSH Course: His hemoglobin was in the [...] oral, Daily Given, 50 mg at 08/12 1718 solifenacin tablet 5 mg (VESICARE) 5 mg, [...] Insecurity: No Food Insecurity (02/16/2022) Received from [facility] [employer] [facility] Food Insecurity Worried About Running Out of Food in the Last Year: 1 Transportation Needs: No Transportation Needs (02/16/2022) Received from [facility], [facility] Transportation Needs Lack of Transportation (Medical): 1 Housing Stability: Low Risk (02/16/2022) Received from [facility], [facility] Housing Stability Unable to Pay [...] Dr. Sylvester and Dr. Rodriguez. Page CCM3 [id number] Carlos Alberto Henson M.D. PGY-1 CCM 3 [...] As expected PRIMARY PROCEDURALIST FAY Cerna MD [id number] ASSISTANTS none COMPLICATIONS None. DRAINS None. IMPLANTS [...] peripheral vein targets. Ultrasound used for assessment: [employer]oof Provider contacted (include name): Uro Surg Time [...] 14 -- AST U/L 25 -- Radiology: @[id number]@ Swallow Assessment: No data to display ASSESSMENT / PLAN #1 Hematuria ASSESSMENT Currently we are asked to visit with Mr. Vega for consideration of parenteral nutrition. Nutrition Needs: Height: 180 cm Admission Weight: 91.2 kg (08/13/2023) Current Weight: 90.2 kg BMI (Calculated): 27.8 kg/m?? Total Calorie Needs: 4420-4363 calories/day Method to Estimate Energy Needs: [place] ( ) Weight Used for Equation Calculations: [...] on electrolytes Please call NSS pager at [phone] at [facility] or [phone] at [facility] with any additional questions. * Gilbert Johnson [...] values in this interval not displayed. Radiology: @[id number]@ Swallow Assessment: No data to display ASSESSMENT / PLAN #1 Hematuria ASSESSMENT Currently we are asked to visit with Mr. Vega for consideration of parenteral nutrition. Nutrition Needs: Height: 180 cm Admission Weight: 91.2 kg (08/13/2023) Current Weight: 90.2 kg BMI (Calculated): 27.8 kg/m?? Total Calorie Needs: 8047-9789 calories/day Method to Estimate Energy Needs: kcal/kg [...] on electrolytes Please call NSS pager at [phone] at [facility] or [phone] at [facility] with any additional questions. BILLING/CODING Total visit [...] stent along with other stents and apparently kiln stoker in the past I recommended indefinite dual [...] documented in the history of present illness. @[email or web address]@ OBJECTIVE Current Facility-Administered Medications: acetaminophen tablet 650 [...] 20 mL/hr, intravenous, Continuous, Frieda Garner APRN, WASTE WATER PLANT OPERATOR, Last Rate: 20 mL/hr at 08/15/23 1459, [...] but he can discuss this with his kiln stoker at home. We need to balance transfusion needs for continued bleedingand risk of recurrent LA if not on Plavix-coronary stents were 6 [...] 83 y.o. male who was admitted to [facility] in [place] on 08/13/2023 for Hematuria [R31.9]. Relevant Medical History: Kalen Vega is a 83 y.o. 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 [...] heels well perfused and intact. Outcome Measures: -[facility] Inpatient Short Form: -[facility] Basic Mobility (V.2) How much help from [...] 3-5 steps with a railing?: A Lot [facility] Basic Mobility (V.2) Raw Score: 17 [facility] Basic Mobility (V.2) Standardized Score: 39.67 Interpretation: Based on scoring guidelines using the raw score value: Those going to home had an average score at or above 18 Those going to facility had an average score at or below 17 Clinicians answer the [facility] Inpatient Short Form based on [...] following coordination of care occurred with the waitangi tribunal member/Caregiver Present: SonFavio Patient was left in bedside [...] 83 y.o. male who was admitted to [facility] in [place] on 08/13/2023 for Hematuria with cystotomy and [...] Min assist for mobility. Required assist for gpk-yb-yngpv for force generation and is generally standby [...] Ongoing PT Goal #2: Patient will perform ghd-ff-zvfbe transfer with modified independence and least restrictive [...] - 08/16/2023 10:01 AM CDT Occupational Therapy [facility] Inpatient Evaluation/Treatment SUBJECTIVE Patient's Name: Kalen Vega Referring/Attending Provider: Boubacar Brock M.D. Reason for Referral: Occupational Therapy Evaluation and Treatment PERTINENT MEDICAL / SURGICAL HISTORY: Kalen Vega has no past medical history on file. Kalen Vega has no past surgical history on file. History of Present Illness: Kalen Vega is a 83 y.o. male who was admitted to [facility] in [place] on 08/13/2023 for Hematuria [R31.9]. Relevant Medical [...] with RN, PT Family/Caregiver Present: Son and pothlnni-qi-dpf. Home Living and Equipment: Lives with: Spouse/Significant [...] walker, Single point cane Adaptive Equipment Owned: Director Of Clinical Applications, Long Handled Shoe Horn Other DME Owned: Regular flat bed Prior Level of Function and Mobility: Basic Activities of Daily Living: Independent Instrumental Activities of Daily Living: Required Assistance: Laundry son assists with laundry and cooking Functional Mobility: Independent Driving: Yes Occupational Role: Retired Leisure Interests: watch movies, plays [employer] train, meets friends for breakfast. Patient/Caregiver Goals: [...] Wears glasses all the time Outcome Measures: [facility] Inpatient Short Form: Putting on [...] at or below 17 Clinicians answer the [facility] Inpatient Short Form based on [...] Time (min): 43 min Lisa Seaman O.T., JODY * Sivakumar Parham L.G.S.W., M.S.W. - 08/14/2023 [...] all are a great support. 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 Patient expressed understanding and was agreeable to [...] conversation with his family when social media assistant entered the room. He was engaged in [...] locally at approximately 3:00 a.m. a 22 Haitian three-way catheter was placed and CBI wasinitiated. Unfortunately he clotted off the catheter multiple times despite manual irrigations, started to develop hypotension and tachycardia [facility] He relays the above history [...] non-distended, non-peritonitic Extremities: No edema : 22 Haitian three-way Tabares catheter draining a minimal amount [...] urinary retention Given his non draining 22 Haitian three-way catheter the Urology techs and I subsequently exchanged this for a 24 Haitian three-way Alcock in the usual sterile fashion. [...] to follow [place] [phone] with questions or concerns Sixto Cain M.D. documented in this encounter Nursing Notes * Lupe Valdez, Terri. - 08/26/2023 2:39 PM CDT Shift Goals: [...] peripheral vein targets. Ultrasound used for assessment: [employer] Fit Provider contacted (include name): Uro Surg [...] CDT Patient Transfer Note Patient transferred to: [facility] Room[facility] Accompanied by: JAMEL Garcia Report called? [...] signs? YES * Sixto Teague, R.R.T., L.R.T., COMMISSARY PRODUCTION SUPERVISOR-ACCS - 08/14/2023 7:00 AM CDT Patient is [...] the last 24hours. Sixto Teague R.R.T., L.R.TJonah, COMMISSARY PRODUCTION SUPERVISOR-ACCS 08/14/23 7:00 AM CDT Electronically signed by Sixto Teague R.R.T., SiddharthaRJonahTJonah, COMMISSARY PRODUCTION SUPERVISOR-ACCS at 08/14/2023 7:02 AM CDT * Radha [...] Hematuria Electronically signed by: Radha Crespo R.R.T., L.R.TJonah 08/13/23 7:10 PM CDT documented in this encounter OR Notes * Op Note - Jakob De Paz M.D. - 08/15/2023 9:37 AM CDT Pre-op Diagnosis Rupture Bladder Spontaneous Post-op Diagnosis Rupture Bladder Spontaneous Signal Engineer A doctor's assistant actively participated and was necessary for [...] the supine flexed position. His existing 24 Haitian three-way Tabares catheter was noted to be [...] additional tissue for additional coverage. A 24 Haitian three-way catheter was placed with 15 cc in the balloon. This irrigated to light clear pink. A 15 Haitian YARELI drain wasplaced into the pelvis exiting left lower quadrant. The fascia was closed with interrupted and hwiwqs-fo-erlee 0 PDS. Fat was approximated using 3-0 [...] -Pn, 5-[address] Cain 08/12 - 5/5, Creatinine: 2.31 > 1.83 08/21 - 08/24, Creatinine: 1.37 > 1.27 > 1.14 > 1.06 MAR: -LR 1 L Bolus x 2 (5-4) -LR @ 75 cc/hr (5-7 - 5-8) Please contact me if you have questions. Thank you, ELMER Barker, RN, CPN, CCDS, CCS, CRC Clinical Documentation Audit Lead Query created by: ELMER Barker, RN, CPN, [...] stent and hematuria who is transferred from [place] ED with 3 days of hematuria & [...] RN, CPN, CCDS, CCS, CRC Clinical Documentation Audit Lead Query created by: ELMER Barker, RN, CPN, [...] he felt completely obstructed and presented to [place] ED. [place] Course Attempted Tabares insertion but bladder irrigation was unsuccessful on multiple attempts. Hung 1U pRBC's. Given some volume and transferred to [facility] ICU ICU Course Urology consulted and [...] CDT Procedure visit Department of Urology in [place], [place] [address] [place] [address] Sima Venegas M.D. [address] [place] [address] Pending Results Name Type Priority Associated Diagnoses [...] Antibody ID) (08/26/2023 6:50 AM CDT) Pathologist [facility] ABORh O Pos Not applicable 08/26/2023 7:16 AM CDT STRM Antibody Screen Negative Negative 08/26/2023 7:29 AM CDT STRM Type & Screen Expiration 08/29/2023 23:59 08/26/2023 7:16 AM CDT STRM Testing Location [place] DEFAULT 08/26/2023 6:57 AM CDT STRM Blood (Blood, Venous) 08/26/2023 6:50 AM CDT 08/26/2023 6:57 AM CDT Paula Hernandez M.D. LAB BLOOD BANK TEST ORDERABLES [facility] [address] [place] [address], [facility] [address] [place] [address] * (ABNORMAL) CBC without Differential (08/26/2023 3:20 [...] M.D. LAB BLOOD ADD-ON Performing Organization Address City/[facility]/ZIP Co de Phone Number [facility] [address] [place] [address], [facility] [address] [place] [address] * Magnesium (08/26/2023 3:20 AM CDT) [facility] Magnesium, S 2.1 1.7 - 2.3 mg/dL 08/26/2023 4:04 AM CDT DTL Blood (Blood, Venous) 08/26/2023 3:20 AM CDT 08/26/2023 3:50 AM CDT Boubacar Brock M.D. LAB BLOOD ADD-ON Performing Organization Address City/[facility]/ZIP Co de Phone Number [facility] [address] [facility] [address] [place] [address] * (ABNORMAL) Renal Function Panel (08/26/2023 3:20 AM CDT) Pathologist [facility] Potassium, S 4.4 3.6 - 5.2 mmol/L [...] CDT Boubacar Brock M.D. LAB BLOOD ADD-ON [facility] [address] [place] [address], [facility] [address] [place] [address] * Heparin Anti-Xa Assay (08/26/2023 3:20 AM CDT) Pathologist [facility] Heparin Anti-Xa, P 0.26 IU/mL 2023 3:58 [...] Hoyt M.D. LAB BLOOD NON ADD -ON [address] [address], [facility] [place] [address] * (ABNORMAL) CBC without Differential (08/25/2023 3:24 AM CDT) Pathologist [facility] Hemoglobin 8.3(L) 13.2 - 16.6 g/dL 08/25/2023 [...] CDT Corin Ring M.D. LAB BLOOD ADD-ON [facility] [address] [place] [address], [facility] DTL [facility] [address] [place] [address] * (ABNORMAL) Renal Function Panel (08/25/2023 3:24 AM CDT) Pathologist [facility] Potassium, S 4.1 3.6 - 5.2 mmol/L [...] CDT Boubacar Brock M.D. LAB BLOOD ADD-ON [facility] [address] [place] [address] * Magnesium (08/25/2023 3:24 AM CDT) Magnesium, S 2.2 1.7 - 2.3 mg/dL 08/25/2023 4:36 AM CDT [facility] Blood (Blood, Venous) 08/25/2023 3:24 AM CDT 08/25/2023 4:19 AM CDT Boubacar Brock M.D. LAB BLOOD ADD-ON Performing Organization Address City/[facility]/ZIP Co de Phone Number [facility] [address] [place] [address], [facility] [address] [place] [address] * Heparin Anti-Xa Assay (08/25/2023 3:24 AM [...] LAB BLOOD NON ADD-ON Performing Organization Address City/[facility]/ZIP Co de Phone Number [facility] [address] [place] [address], [facility] [address] [place] [address] * (ABNORMAL) CBC without Differential (08/24/2023 5:28 AM CDT) Pathologist [facility] Hemoglobin 8.1(L) 13.2 - 16.6 g/dL 08/24/2023 [...] CDT Corin Ring M.D. LAB BLOOD ADD-ON [facility] [address] [place] [address], [facility] [address] [place] [address] * Magnesium (08/24/2023 5:28 AM CDT) Magnesium, S 2.3 1.7 - 2.3 mg/dL 08/24/2023 6:19 AM CDT DTL Blood (Blood, Venous) 08/24/2023 5:28 AM CDT 08/24/2023 6:00 AM CDT Boubacar Brock M.D. LAB BLOOD ADD-ON [facility] [address] [place] [address], [facility] [address] [place] [address] * (ABNORMAL) Renal Function Panel (08/24/2023 5:28 [...] M.D. LAB BLOOD ADD-ON Performing Organization Address [facility] Co de Phone Number [facility] [address] [place] [address] * Heparin Anti-Xa Assay (08/24/2023 5:28 AM [...] LAB BLOOD NON ADD-ON Performing Organization Address [facility]/ZIP Co de Phone Number [facility] [address] [place] [address], [facility] [address] [place] [address] * (ABNORMAL) Potassium (08/23/2023 9:58 PM CDT) Potassium, S 3.5(L) 3.6 - 5.2 mmol/L 08/23/2023 10:45 PM CDT DT Blood (Blood, Venous) 08/23/2023 9:58 PM CDT 08/23/2023 10:30 PM CDT Boubacar Brock M.D. LAB BLOOD ADD-ON Performing Organization Address City/[facility]/ZIP Co de Phone Number [facility] [address] [place] [address], [facility] [address] [place] [address] * (ABNORMAL) Phosphorus Inorganic (08/23/2023 9:58 PM CDT) Phosphorus (Inorganic), S 2.1(L) 2.5 - 4.5 mg/dL 08/23/2023 10:45 PM CDT DT Blood (Blood, Venous) 08/23/2023 9:58 PM CDT 08/23/2023 10:30 PM CDT Paula Hernandez M.D. LAB BLOOD ADD-ON Performing Organization Address [facility] Co de Phone Number [facility] [address] [place] [address], [place] [address] * Heparin Anti-Xa Assay (08/23/2023 11:37 AM [...] LAB BLOOD NON ADD-ON Performing Organization Address City/[facility]/ZIP Co de Phone Number [facility] [address] DTL [facility] [address] [place] [address] * (ABNORMAL) CBC without Differential (08/23/2023 3:42 AM CDT) Pathologist [facility] Hemoglobin 8.3(L) 13.2 - 16.6 g/dL 08/23/2023 [...] CDT Corin Ring M.D. LAB BLOOD ADD-ON [facility] [address] [place], [place] [id number] [place] [address] [facility] [address] [place] [address] * Triglycerides (08/23/2023 3:42 AM CDT) Triglycerides [...] M.D. LAB BLOOD ADD-ON Performing Organization Address City/[facility]/ZIP Co de Phone Number [facility] [address] [place] [address], [facility] [address] [place] [address] * Magnesium (08/23/2023 3:42 AM CDT) Magnesium, S 2.2 1.7 - 2.3 mg/dL 08/23/2023 4:50 AM CDT DTL Blood (Blood, Venous) 08/23/2023 3:42 AM CDT 08/23/2023 4:19 AM CDT Boubacar Brock M.D. LAB BLOOD ADD-ON Performing Organization Address City/[facility]/ZIP Co de Phone Number [facility] [address] [place] [address], [facility] [address] [place] [address] * (ABNORMAL) Renal Function Panel (08/23/2023 3:42 [...] CDT Boubacar Brock M.D. LAB BLOOD ADD-ON [facility] [address] [place] [address], [facility] [address] [place] [address] * Heparin Anti-Xa Assay (08/23/2023 3:41 AM [...] LAB BLOOD NON ADD-ON Performing Organization Address City/[facility] Co de Phone Number [facility] [address] [place] [address], [facility] [address] [place] [address] * Glucose, POCT (08/22/2023 11:38 PM CDT) [facility] Glucose, POCT, B 117 70 - 140 mg/dL 08/23/2023 1:06 AM CDT PCLX Site Capillary 08/23/2023 1:06 AM CDT PCLX Last Intake NPO 08/23/2023 1:06 AM CDT PCLX Blood 08/22/2023 11:3 8 PM CDT 08/23/2023 1:06 AM CDT Unknown Provider LAB POCT ORDERABLES- MANUAL Performing Organization Address City/[facility] Co de Phone Number POC [facility] [address] [place] [address], [facility] PCLX [facility] POC [address] [place] [address] * Heparin Anti-Xa Assay (08/22/2023 10:14 PM CDT) Pathologist [facility] Heparin Anti-Xa, P 0.50 IU/mL 2023 10:47 [...] Boubacar Brock M.D. LAB BLOOD NON ADD-ON [facility] [address] [place] [address], [facility] [address] [place] [address] * CT Abdomen Pelvis without IV Contrast [...] LAB BLOOD NON ADD-ON Performing Organization Address [facility]/ZIP Co de Phone Number [facility] [address] [place] [address], [facility] [address] [place] [address] * Creatinine, Body Fluid (08/22/2023 3:30 PM [...] transport rates. All other fluids refer to [email or web address] for further interpretive information. This test has been modified from the knife changer's instructions. Its performance characteristics were determined by [facility] in a manner consistent with CLIA requirements. This test has not been cleared or approved by the U.S. Food and Drug Administration. Fluid Type, Creatinine Fluid, Abdomen 08/22/2023 3:52 PM CDT DTL Fluid (Abdomen) 08/22/2023 3 :30 PM CDT 08/22/2023 6:36 PM CDT Corin Ring M.D. LAB BODY FLUIDS AND STOOLS ORDERABLES Performing Organization Address City/[facility]/ZIP Co de Phone Number [facility] [address] [place] [address], [address] [address] * Transfuse Red Blood Cells : (08/22/2023 [...] of a right IJ vein single-lumen 4 Haitian tunneled PowerPICC ready for immediate use. NR [...] advanced into the IVC and a 4 Haitian dilator advanced over the wire and attached to a one-way stopcock. A suitable exit site in the right anterior chest was anesthetized and a small incision made. A 4 Haitian single-lumen PowerPICC was then tunneled from the [...] Wireadvanced into the IVC and a 4 Haitian dilator advanced over the wire andattached to a one-way stopcock. A suitable exit site in the right anteriorchest was anesthetized and a small incision made. A 4 Haitian single-lumen PowerPICC was then tunneled fromthe skin [...] of a right IJ vein single-lumen 4 Haitian tunneled PowerPICCready for immediate use. NR Kimi [...] M.D. LAB BLOOD ADD-ON Performing Organization Address City/[facility]/ZIP Co de Phone Number [facility] [address] [place] [address], [facility] [address] [place] [address] * Type and Screen (with Reflex Antibody ID) (08/22/2023 2:55 AM CDT) Pathologist [facility] ABORh O Pos Not applicable 08/22/2023 3:25 AM CDT STRM Antibody Screen Negative Negative 08/22/2023 3:38 AM CDT STRM Type & Screen Expiration 08/25/2023 23:59 08/22/2023 3:25 AM CDT STRM Testing Location Marcio DEFAULT 08/22/2023 3:07 AM CDT STRM Blood (Blood, Venous) 08/22/2023 2:55 AM CDT 08/22/2023 3:07 AM CDT Latisha Whitehead M.D. LAB BLOOD BANK T EST ORDERABLES Performing Organization Address [facility] Co de Phone Number [facility] [address] [place] [address], [facility] [address] [place] [address] * (ABNORMAL) Comprehensive Metabolic Panel (08/22/2023 2:40 AM CDT) Pathologist [facility] Potassium, S 3.2(L) 3.6 - 5.2 mmol/L [...] CDT Latisha Whitehead M.D. LAB BLOOD ADD-ON [facility] [address] [place] [address], [facility] [address] [place] [address] * Heparin Anti-Xa Assay (08/22/2023 2:40 AM [...] BLOOD NON AD D-ON Performing Organization Address [facility]/ZIP Co de Phone Number [address] [place] [address] * (ABNORMAL) APTT (Activated Partial Thromboplastin Time) (08/22/2023 2:40 AM CDT) [facility] Activated Partial Thrombopl Time, P 64(H) 25 - 37 sec 08/22/2023 3:12 AM CDT [facility] Blood (Blood, Venous) 08/22/2023 2:40 AM CDT 08/22/2023 3:01 AM CDT Latisha Whitehead M.D. LAB BLOOD ADD-ON Performing Organization Address City/[facility]/ZIP Co de Phone Number [facility] [address] [place] [address] * Triglycerides (08/21/2023 7:32 AM CDT) [facility] Triglycerides 98 mg/dL 08/21/2023 9:03 AM CDT DTL Comment: ----REFERENCE VALUE---- Normal: <150 mg/dL Borderline High: 150-199 mg/dL High: 200-499 mg/dL Very High: > or =500 mg/dL Fasting (8 HR or more) Unknown 08/21/2023 8:38 AM CDT DTL Blood (Blood, Venous) 08/21/2023 7:32 AM CDT 08/21/2023 8:38 AM CDT Lizette Harvey M.D. LAB BLOOD ADD-O N Performing Organization Address City/[facility]/ZIP Co de Phone Number [facility] [address] [place] [address], [facility] [address] [place] [address] * Phosphorus Inorganic (08/21/2023 7:32 AM CDT) Phosphorus (Inorganic), S 2.6 2.5 - 4.5 mg/dL 08/21/2023 9:03 AM CDT DTL Blood (Blood, Venous) 08/21/2023 7:32 AM CDT 08/21/2023 8:38 AM CDT Lizette Harvey M.D. LAB BLOOD ADD-O N Performing Organization Address [facility] Co de Phone Number [facility] [address] [place] [address], [facility] [address] [place] [address] * Magnesium (08/21/2023 7:32 AM CDT) Magnesium, S 2.3 1.7 - 2.3 mg/dL 08/21/2023 9:03 AM CDT DTL Blood (Blood, Venous) 08/21/2023 7:32 AM CDT 08/21/2023 8:38 AM CDT Lizette Harvey M.D. LAB BLOOD ADD-O N Performing Organization Address City/[facility]/ZIP Co de Phone Number [facility] [address] [place] [address], [facility] DTL [facility] [address] [place] [address] * (ABNORMAL) Basic Metabolic Panel (08/21/2023 7:32 [...] Lizette Harvey M.D. LAB BLOOD ADD-O N [facility] [address] [place] [address], [facility] DTL [facility] [address] [place] [address] * (ABNORMAL) CBC without Differential (08/21/2023 7:32 [...] Lizette Harvey M.D. [place] [address], [facility] [place] [address] * Heparin Anti-Xa Assay (08/21/2023 7:32 AM CDT) Pathologist [facility] Heparin Anti-Xa, P 0.49 IU/mL 2023 8:31 [...] Boubacar Brock M.D. LAB BLOOD NON ADD-ON [facility] [address] [place] [address], [facility] [address] [place] [address] * (ABNORMAL) APTT (Activated Partial Thromboplastin Time) (08/21/2023 7:32 AM CDT) Pathologist [facility] Activated Partial Thrombopl Time, P 49(H) 25 - 37 sec 08/21/2023 8:31 AM CDT DTL Blood (Blood, Venous) 08/21/2023 7:32 AM CDT 08/21/2023 8:06 AM CDT Boubacar Brock M.D. LAB BLOOD ADD-ON Performing Organization Address City/[facility] Co de Phone Number [facility] [address] [place] [address], [facility] [address] [place] [address] * Place peripherally inserted central catheter (PICC) (08/20/2023 8:40 PM CDT) Narrative MMODAL - 08/20/2023 8:40 PM CDT Miko Shah R.N. ? 08/20/2023 ??8:[address] peripherally inserted central catheter (PICC) Performed by: Miko Shah R.N. Authorized by: Lizette Harvey M.D. ?? Care team members present 1. iMko Shah R.N. 2. Geneva Cortez R.N. PROCEDURE [...] M.D. LAB BLOOD ADD-ON Performing Organization Address City/[facility]/ZIP Co de Phone Number [facility] [address] [place] [address], [facility] [address] [place] [address] * (ABNORMAL) CBC without Differential (08/20/2023 3:19 AM CDT) [facility] Hemoglobin 8.9(L) 13.2 - 16.6 g/dL [...] CDT Paula Hernandez M.D. LAB BLOOD ADD-ON [facility] [address] [place] [address], [facility] [address] [place] [address] * (ABNORMAL) APTT (Activated Partial Thromboplastin Time) (08/20/2023 3:19 AM CDT) [facility] Activated Partial Thrombopl Time, P 52(H) 25 - 37 sec 08/20/2023 4:33 AM CDT DTL Blood (Blood, Venous) 08/20/2023 3:19 AM CDT 08/20/2023 4:10 AM CDT Boubacar Brock M.D. LAB BLOOD ADD-ON [facility] [address] [place] [address] * (ABNORMAL) APTT (Activated Partial Thromboplastin Time) (08/19/2023 10:57 AM CDT) [facility] Activated Partial Thrombopl Time, P 54(H) 25 - 37 sec 08/19/2023 11:44 AM CDT DT Blood (Blood, Venous) 08/19/2023 10:57 AM CDT 08/19/2023 11:26 AM CDT Boubacar Brock M.D. LAB BLOOD ADD-ON Performing Organization Address City/[facility]/ZIP Co de Phone Number [facility] [address] [place], [place] [phone] [place] [address] [address] [place] [address] * (ABNORMAL) APTT (Activated Partial Thromboplastin Time) (08/19/2023 4:51 AM CDT) [facility] Activated Partial Thrombopl Time, P 59(H) 25 - 37 sec 08/19/2023 5:53 AM CDT DT Blood (Blood, Venous) 08/19/2023 4:51 AM CDT 08/19/2023 5:36 AM CDT Boubacar Brock M.D. LAB BLOOD ADD-ON [facility] [address] [place], [place] [address] [place] [address] 200 [place] [address] * (ABNORMAL) APTT (Activated Partial Thromboplastin Time) (08/18/2023 10:03 PM CDT) [facility] Activated Partial Thrombopl Time, P 63(H) 25 - 37 sec 08/18/2023 10:41 PM CDT DTL Blood (Blood, Venous) 08/18/2023 10:03 PM CDT 08/18/2023 10:19 PM CDT Boubacar Brock M.D. LAB BLOOD ADD-ON [facility] [address] [place] [address] * (ABNORMAL) APTT (Activated Partial Thromboplastin Time) (08/18/2023 2:50 PM CDT) [facility] Activated Partial Thrombopl Time, P 64(H) 25 - 37 sec 08/18/2023 3:25 PM CDT DT Blood (Blood, Venous) 08/18/2023 2:50 PM CDT 08/18/2023 3:07 PM CDT Boubacar Brock M.D. LAB BLOOD ADD-ON [facility] [address] [place] [address] * (ABNORMAL) APTT (Activated Partial Thromboplastin Time) (08/18/2023 6:42 AM CDT) [facility] Activated Partial Thrombopl Time, P 61(H) 25 - 37 sec 08/18/2023 7:28 AM CDT DTL Blood (Blood, Venous) 08/18/2023 6:42 AM CDT 08/18/2023 7:04 AM CDT Boubacar Brock M.D. LAB BLOOD ADD-ON [facility] [address] [place], [place] [address] [place] [address] * (ABNORMAL) APTT (Activated Partial Thromboplastin Time) (08/17/2023 11:04 PM CDT) Activated Partial Thrombopl Time, P 40(H) 25 - 37 sec 08/17/2023 11:46 PM CDT DTL Blood (Blood, Venous) 08/17/2023 11:04 PM CDT 08/17/2023 11:31 PM CDT Boubacar Brock M.D. LAB BLOOD ADD-ON Performing Organization Address City/[facility] Co de Phone Number [phone] [place] [address] * US Lower Extremity Veins Bilateral (08/17/2023 [...] and management can be found on the [employer] site. Link [email or web address] [email or web address] Findings discussed with ??Tayler Greenwood, ?? ([id number]) on 08/17/2023 7:11 PM. Procedure Note Jj [...] management can be found on theAskMayoExpert site. [email or web address] Findings discussed with Tayler Greenwood MD ([id number]) on 08/17/2023 7:11 PM. IMPRESSION: 1. 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 2. No acute left-sided DVT. Corin Ring M.D. IMG US PROCEDURES * APTT (Activated Partial Thromboplastin Time) (08/17/2023 4:56 PM CDT) Pathologist [facility] Activated Partial Thrombopl Time, P 29 25 - 37 sec 08/17/2023 5:10 PM CDT [facility] Blood (Blood, Venous) 08/17/2023 4:56 PM CDT 08/17/2023 5:00 PM CDT Paula Hernandez M.D. LAB BLOOD ADD-ON [facility] [address] [place] [address], [facility] [address] [place] [address] * ECG 12 Lead (08/16/2023 9:43 PM CDT) Pathologist [facility] Ventricular Rate ECG/Min 134 BPM MUSE SC Interval 136 ms MUSE QRSD Interval 76 ms MUSE QT Interval 298 ms MUSE QTC Interval 445 ms MUSE P [place] 29 degrees MUSE R [place] -6 degrees MUSE T Wave [place] 21 degrees MUSE 08/16/2023 9:43 PM CDT 08/16/2023 9:50 PM CDT Impressions MUSE - 08/16/2023 9:50 PM CDT Sinus tachycardia Nonspecific ST and T wave abnormality When compared with ECG of 13-Aug-2023 19:02, ST now depressed in Anterolateral leads Reviewed by BETTY Shaw Narrative Procedure Note oRby Marcus M.D. - 08/16/2023 IMPRESSION: Sinus tachycardia [...] CDT Geneva Azar M.D. LAB BLOOD ADD-ON [facility] [address] [place] [address], [facility] DTL [facility] [address] [place] [address] * (ABNORMAL) Basic Metabolic Panel (08/16/2023 9:40 PM CDT) Pathologist [facility] Potassium, S 3.9 3.6 - 5.2 mmol/L [...] CDT Geneva Azar M.D. LAB BLOOD ADD-ON [facility] [address] [place] [address], [facility] DTL [facility] [address] [place] [address] * Transfuse Red Blood Cells : (08/16/2023 12:04 PM CDT) Corin Ring M.D. BLOOD TRANSFUSION OR DERABLES * Transfuse Red Blood Cells : , 1 Units (08/16/2023 12:04 PM CDT) Corin Rnig M.D. BLOOD TRANSFUSION OR DERABLES * (ABNORMAL) Basic Metabolic Panel (08/16/2023 3:10 AM CDT) [facility] Potassium, S 4.2 3.6 - 5.2 [...] CDT Paula Hernandez M.D. LAB BLOOD ADD-ON [facility] [address] [place] [address], [facility] [address] [place] [address] * (ABNORMAL) CBC without Differential (08/16/2023 3:10 AM CDT) Pathologist [facility] Hemoglobin 8.1(L) 13.2 - 16.6 g/dL 08/16/2023 [...] CDT Paula Hernandez M.D. LAB BLOOD ADD-ON [facility] [address] [place] [address], [facility] [address] [place] [address] * (ABNORMAL) CBC with Differential, Blood (08/15/2023 [...] Carlos Alberto Henson M.D. LAB BLOOD ADD-ON [facility] [address] [place] [address], [facility] DTL [facility] [address] [place] [address] DHPM [facility] [address] [place] [address] * DX Abdomen 1 View (08/15/2023 1:19 [...] CDT 08/15/2023 12:03 PM CDT Rae Gonzalez WATER QUALITY SPECIALIST, WASTE WATER PLANT OPERATOR, DNAP LAB BLOO D NON ADD-ON [facility] [address] [place] [address], [facility] [address] [place] [address] * Lactate, B - Intra-op (08/15/2023 11:56 AM CDT) Lactate, B 1.1 0.5 - 2.2 mmol/L 08/15/2023 12:06 PM CDT STMA Blood (Blood, Venous) 08/15/2023 11:56 AM CDT 08/15/2023 12:03 PM CDT Hayde Song M.D. LAB BLOOD NON ADD-O N Performing Organization Address City/[facility]/ZIP Co de Phone Number [facility] [address] [place] [address], [facility] [address] [place] [address] * (ABNORMAL) Glucose, Whole Blood (08/15/2023 11:56 AM CDT) Glucose 144(H) 70 - 140 mg/dL 08/15/2023 12:06 PM CDT STMA Blood (Blood, Arterial Line) 08/15/2023 11:56 AM CDT 08/15/2023 12:03 PM CDT Hayde Song M.D. LAB BLOOD ADD-ON Performing Organization Address City/[facility]/ZIP Co de Phone Number [facility] [address] [place] [address], [facility] [address] [place] [address] * Potassium, Blood (08/15/2023 11:56 AM CDT) Potassium, B 4.3 3.6 - 5.2 mmol/L 08/15/2023 12:07 PM CDT STMA Blood (Blood, Arterial Line) 08/15/2023 11:56 AM CDT 08/15/2023 12:03 PM CDT Hayde Song M.D. LAB BLOOD NON ADD-O N [facility] [address] [place] [address], [facility] [address] [place] [address] * Sodium, B (08/15/2023 11:56 AM CDT) Sodium, B 135 135 - 145 mmol/L 08/15/2023 12:06 PM CDT STMA Blood (Blood, Arterial Line) 08/15/2023 11:56 AM CDT 08/15/2023 12:03 PM CDT Hayde Song M.D. LAB BLOOD NON ADD-O N Performing Organization Address City/[facility]/ZIP Co de Phone Number [facility] [address] [place], [place] [phone] [place] [address] [address] [place] [address] * (ABNORMAL) Calcium, Ionized (08/15/2023 11:56 AM CDT) Calcium, Ionized, B 4.53(L) 4.65 - 5.30 mg/dL 08/15/2023 12:07 PM CDT STMA Blood (Blood, Arterial Line) 08/15/2023 11:56 AM CDT 08/15/2023 12:03 PM CDT Hayde Song M.D. LAB BLOOD NON ADD-O N Performing Organization Address City/[facility]/ZIP Co de Phone Number [facility] [address] [place], [place] [phone] [place] [address] [address] [place] [address] * (ABNORMAL) Blood Gas with Coox, Arterial [...] BLOOD NON ADD-O N Performing Organization Address City/[facility]/ZIP Co de Phone Number [facility] [address] [place] [address] * FL Fluoro Less Than 1 Hour (08/15/2023 11:22 AM CDT) Narrative 152 [facility] R[facility] - 08/15/2023 11:24 AM CDT This exam does not require a radiologist review or interpretation. Please refer to the patient's medical record on this date for clinical details. Boubacar Brock M.D. IMG FLUOROSCOPY PROC EDURES Performing Organization Address City/[facility]/ZIP Co de Phone Number 152 [facility] RST * Patient Status (08/15/2023 10:28 AM CDT) Temperature 36.1 37.0 deg C 08/15/2023 10:28 AM CDT STMA FIO2 0.55 0.21=AIR 08/15/2023 10:28 AM CDT STMA Blood 08/15/2023 10:2 8 AM CDT 08/15/2023 10:28 AM CDT Rae Gonzalez WATER QUALITY SPECIALIST, WASTE WATER PLANT OPERATOR, DNAP LAB BLOO D NON ADD-ON Performing Organization Address City/[facility]/ZIP Co de Phone Number [facility] [address] [place] [address], [facility] [address] [place] [address] * Lactate, B - Intra-op (08/15/2023 10:28 AM CDT) Lactate, B 1.1 0.5 - 2.2 mmol/L 08/15/2023 10:30 AM CDT [facility] Blood (Blood, Venous) 08/15/2023 10:28 AM CDT 08/15/2023 10:28 AM CDT Hayde Song M.D. LAB BLOOD NON ADD-O N [facility] [address] [place] [address], [facility] [address] [place] [address] * Glucose, Whole Blood (08/15/2023 10:28 AM CDT) Glucose 134 70 - 140 mg/dL 08/15/2023 10:30 AM CDT [facility] Blood (Blood, Arterial Line) 08/15/2023 10:28 AM CDT 08/15/2023 10:28 AM CDT Narrative Authorizing Provider Result Abdifatah Song M.D. LAB BLOOD ADD-ON [facility] [address] [place] [address], [facility] [address] [place] [address] * Potassium, Blood (08/15/2023 10:28 AM CDT) Potassium, B 4.1 3.6 - 5.2 mmol/L 08/15/2023 10:31 AM CDT [facility] Blood (Blood, Arterial Line) 08/15/2023 10:28 AM CDT 08/15/2023 10:28 AM CDT Hayde Song M.D. LAB BLOOD NON ADD-O N Performing Organization Address City/[facility]/ZIP Co de Phone Number [facility] [address] [place] [address] * Sodium, B (08/15/2023 10:28 AM CDT) Sodium, B 135 135 - 145 mmol/L 08/15/2023 10:30 AM CDT [facility] Blood (Blood, Arterial Line) 08/15/2023 10:28 AM CDT 08/15/2023 10:28 AM CDT Hayde Song M.D. LAB BLOOD NON ADD-O N [facility] [address] [place] [address] * (ABNORMAL) Calcium, Ionized (08/15/2023 10:28 AM CDT) Calcium, Ionized, B 4.25(L) 4.65 - 5.30 mg/dL 08/15/2023 10:31 AM CDT [facility] Blood (Blood, Arterial Line) 08/15/2023 10:28 AM CDT 08/15/2023 10:28 AM CDT Hayde Song M.D. LAB BLOOD NON ADD-O N [facility] [address] [place], [place] [phone] [place] [address] 200 [place] [address] * (ABNORMAL) Blood Gas with Coox, Arterial [...] Song M.D. LAB BLOOD NON ADD-O N [facility] [address] [place] [address], [facility] [address] [place] [address] * Bacteria / Yomaira Culture, Blood #2 (08/15/2023 3:33 AM CDT) Bacteria/Leyla da Culture, Blood No growth after 5 days of incubation. 08/20/2023 6:02 AM CDT DTL Blood (Blood, Peripheral Draw) 08/15/2023 3:33 AM CDT 08/15/2023 5:58 AM CDT Comment:Specimen Source Site : Blood Narrative [facility] - 08/20/2023 6:02 AM CDT Received Bactec aerobic and Bactec anaerobic bottles Carlos Alberto Henson M.D. LAB MICROBIOLOGY - G ENERAL ORDERABLES [facility] [address] [place] [address], [facility] [address] [place] [address] * (ABNORMAL) Basic Metabolic Panel (08/15/2023 3:31 AM CDT) Pathologist [facility] Potassium, S 4.0 3.6 - 5.2 mmol/L [...] Jakob De Paz M.D. LAB BLOOD ADD-ON [facility] [address] [place] [address], [facility] [address] [place] [address] * Bacteria / Yomaira Culture, Blood #1 (08/15/2023 3:31 AM CDT) Pathologist [facility] Bacteria/Leyla da Culture, Blood No growth after 5 days of incubation. 08/20/2023 6:02 AM CDT DTL Blood (Blood, Peripheral Draw) 08/15/2023 3:31 AM CDT 08/15/2023 5:59 AM CDT Comment:Specimen Source Site : Blood Carlos Alberto Henson M.D. LAB MICROBIOLOGY - G ENERAL ORDERABLES [facility] [address] [place] [address], [facility] [address] [place] [address] * (ABNORMAL) CBC with Differential, Blood (08/15/2023 3:30 AM CDT) Pathologist [facility] Hemoglobin 9.5(L) 13.2 - 16.6 g/dL 08/15/2023 [...] Carlos Alberto Henson M.D. LAB BLOOD ADD-ON [facility] [address] [place] [address], [facility] DTL [facility] [address] [place] [address] [facility] [address] [place] [address] * (ABNORMAL) CBC with Differential, Blood (08/14/2023 8:08 PM CDT) [facility] Hemoglobin 9.8(L) 13.2 - 16.6 g/dL [...] Carlos Alberto Henson M.D. LAB BLOOD ADD-ON [facility] [address] [place] [address], [facility]MWad[facility] [address] [place] [address] [facility] [address] [place] [address] * Transfuse Red Blood Cells : , [...] with Differential, Blood (08/14/2023 3:18 AM CDT) [facility] Signature Hemoglobin 7.6(L) 13.2 - 16.6 g/dL 08/14/2023 [...] Carlos Alberto Henson M.D. LAB BLOOD ADD-ON [facility] [address] [place] [address], [facility] STMA [facility] [address] [place] [address] [facility] [address] [place] [address] * (ABNORMAL) Basic Metabolic Panel (08/14/2023 3:18 [...] Carlos Alberto Henson M.D. LAB BLOOD ADD-ON [address] [address], [facility] [address] [place] [address] * Type and Screen (with Reflex Antibody ID) (08/13/2023 7:35 PM CDT) Pathologist [facility] ABORh O Pos Not applicable 08/13/2023 7:58 PM CDT STRM Antibody Screen Negative Negative 08/13/2023 8:13 PM CDT STRM Type & Screen Expiration 08/16/2023 23:59 08/13/2023 7:58 PM CDT STRM Testing Location [place] DEFAULT 08/13/2023 7:39 PM CDT STRM Blood (Blood, Venous) 08/13/2023 7:35 PM CDT 08/13/2023 7:39 PM CDT Carlos Alberto Henson M.D. LAB BLOOD BANK TEST ORDERABLES Performing Organization Address City/[facility]/ZIP Co de Phone Number [facility] [address] [place] [address], [facility] [address] [place] [address] * (ABNORMAL) Bacteria / Yomaira Culture, Blood #1 (08/13/2023 7:35 PM CDT) Pathologist [facility] Bacteria/Cand jessica Culture, Blood ESCHERICHIA COLI Growth after 11 Hours (A) 08/16/2023 11:17 AM CDT DTL Comment: 3 of 3 Bottles, Susceptibilities performed on another specimen [id number] Blood (Blood, Peripheral Draw) 08/13/2023 7:35 PM CDT 08/13/2023 8:15 PM CDT Comment:Specimen Source Site : Blood Carlos Alberto Henson M.D. LAB MICROBIOLOGY - G ENERAL ORDERABLES [facility] [address] [place] [address], [facility] DTL [facility] [place] [address] [place] [address] * ECG 12 Lead (08/13/2023 7:02 PM CDT) Ventricular Rate ECG/Min 128 BPM MUSE SC Interval 138 ms MUSE QRSD Interval 64 ms MUSE QT Interval 304 ms MUSE QTC Interval 443 ms MUSE P [place] 45 degrees MUSE R [place] 34 degrees MUSE T Wave [place] 46 degrees MUSE 08/13/2023 7:02 PM CDT [...] CDT Comment:Specimen Source Site : Blood Narrative [facility] - 08/16/2023 11:17 AM CDT Received [...] M.D. LAB MICROBIOLOGY - G ENERAL ORDERABLES [facility] [address] [place] [address] * Magnesium (08/13/2023 5:27 PM CDT) Magnesium, S 1.9 1.7 - 2.3 mg/dL 08/13/2023 6:12 PM CDT DTL Blood (Blood, Venous) 08/13/2023 5:27 PM CDT 08/13/2023 5:58 PM CDT Carlos Alberto Henson M.D. LAB BLOOD ADD-ON [facility] [address] [place] [address], [facility] [place] [address] * (ABNORMAL) Hepatic Function Panel (08/13/2023 5:27 [...] Carlos Alberto Henson M.D. LAB BLOOD ADD-ON [facility] [address] [place] [address], [facility] [place] [address] [place] [address] * (ABNORMAL) Basic Metabolic Panel (08/13/2023 5:27 [...] Carlos Alberto Henson M.D. LAB BLOOD ADD-ON [place] [address] [place] [address], [facility] [address] [place] [address] * Prothrombin Time (PT) (08/13/2023 5:27 PM [...] Carlos Alberto Henson M.D. LAB BLOOD ADD-ON [facility] [address] [place] [address], [facility] [address] [place] [address] * (ABNORMAL) CBC with Differential, Blood (08/13/2023 5:27 PM CDT) [facility] Hemoglobin 10.0(L) 13.2 - 16.6 g/dL [...] Carlos Alberto Henson M.D. LAB BLOOD ADD-ON [facility] [address] [place] [address], [facility] STMA [facility] [place] [address] [place] [address] DHPM [facility] [place] [address] [place] [address] * (ABNORMAL) Dipstick, Urine (08/13/2023 5:07 PM [...] M.D. LAB URINE ORDERABLES Performing Organization Address City/[facility]/ZIP Co de Phone Number [facility] [address] [place] [address], [facility] [address] [place] [address] * Osmolality, Urine (08/13/2023 5:07 PM CDT) Osmolality, U 351 150 - 1150 mOsm/kg 08/13/2023 7:46 PM CDT DTL Urine 08/13/2023 5:07 PM CDT 08/13/2023 5:45 PM CDT Carlos Alberto Henson M.D. LAB URINE ORDERABLES Performing Organization Address City/[facility]/ZIP Co de Phone Number [facility] [address] [place] [address], [facility] [address] [place] [address] * (ABNORMAL) Microscopic Manual (08/13/2023 5:07 PM [...] M.D. LAB URINE ORDERABLES Performing Organization Address City/[facility] Co de Phone Number [facility] [address] [place] [address], [facility] [address] [place] [address] * pH, Random, Urine (08/13/2023 5:07 PM CDT) pH, Random, U 7.0 4.5 - 8.0 08/13/2023 7:46 PM CDT DTL Urine 08/13/2023 5:07 PM CDT 08/13/2023 5:45 PM CDT Carlos Alberto Henson M.D. LAB URINE ORDERABLES Performing Organization Address City/[facility]/ZIP Co de Phone Number [facility] [address] [place] [address], [facility] [address] [place] [address] * (ABNORMAL) Bacterial Culture, Aerobic + Susceptibility, [...] M.D. LAB MICROBIOLOGY - G ENERAL ORDERABLES [facility] [address] [place] [address], [facility] DTL [facility] [place] [address] [place] [address] * (ABNORMAL) Urinalysis, with Microscopic: Urine, Midstream [...] CDT DTL Predicted 24 [place] [address](H) <229 mg/24 h 08/13/2023 8:50 PM CDT DTL Predicted Range [id number] mg/24 h 08/13/2023 8:50 PM CDT DTL Comment Micro done on <2.5 mL 08/13/2023 7:55 PM CDT DTL Urine (Urine, Midstream) 08/13/2023 5:07 PM CDT 08/13/2023 5:44 PM CDT Carlos Alberto Henson M.D. LAB URINE ORDERABLES [facility] [address] [place] [address], [facility] DTL [facility] [address] [place] [address] * Interpretation of Outside CT Abdomen and [...] are clear. Procedure Note Killian Montenegro M.B.B.S., Enedina. - 08/13/2023 EXAM: INTERPRETATION OF OUTSIDE CT [...] may use home supply. 08/17/23: Id'ed by [facility] Rx# [id number], filled 07/22/23. HAZARDOUS - Handle with care. Swallow whole. Do NOT crush, chew or open capsule. Given 08/26/2023 9:12 AM CDT 120 mg Given 08/25/2023 9:08 AM CDT 120 mg Given 08/24/2023 9:12 AM CDT 120 mg Lactated Ringer's 1.5 mL/kg/hr ? 75 kg Vernal weight (112.5 mL/hr, rounded to 113 mL/hr), intravenous, Continuous, Starting on Tue08/22/23 at 1030, Conditional Phase Pre-Gastrografin Administration. (Rate = 1.5 mL/kg/hr ideal body weight) Lactated Ringer's 0.75 mL/kg/hr ? 75 kg Vernal weight (56.25 mL/hr, rounded to 56.3 mL/hr), [...] Forrest R.N.)1831 (Given - Provider: Mary Rosado R.N.) 0019 (Not Given - Provider: Fatuma See R.N. - Reason: Patient/family refused)0639 (Given - Provider: Fatuma See R.N.)1136 (Given - Provider: Tayler Forrest R.N.)1750 (Not Given - Provider: Antonia Salazar R.N. [...] R.N.) 0627 (Given - Provider: Edith Simental RNarendra)1600 (Due) clopidogreL tablet 75 mg (PLAVIX) 75 mg, oral, Daily, First dose on Tue08/26/23 at 0900 0915 (Given - Provider: Lupe Valdez R.N.) docusate sodium liquid 100 mg (COLACE) 100 mg, oral, 2 times daily, First dose (after last modification) on Tue08/23/23 at 2100 0852 (Not Given - Provider: Tayler Forrest R.N. - Reason: Patient/family refused)2151 (Given - Provider: Fatuma See R.N.) 0852 (Not Given - Provider: Tayler Forrest R.N. - Reason: Patient/family refused)2131 (Given - Provider: Antonia Salazar R.N.) 914 (Given - Provider: Lupe Valdez R.N.) enzalutamide capsule 120 mg (XTANDI) PATIENT'S OWN MED 120 mg, oral, Daily, First dose (after last modification) on Tue08/17/23 at 1230, Patient may use home supply. 08/17/23: Id'ed by [facility] Rx# [id number], filled 07/22/23. HAZARDOUS - Handle with care. Swallow whole. Do NOT crush, chew or open capsule. 09 (Given - Provider: Tayler Forrest R.N. - Comment: Pat Murray, -2nd RN) 907 (Given - Provider: Tayler Forrest R.N. - Comment: Pt 's own med from home) 911 (Given - Provider: Lupe Valdez R.N.) fat emulsion [id number] & fish oil infusion 50 g (SMOFlipid) [...] R.N. - Comment: verified by Antonia Salazar RN)2127 (Stopped - Provider: Antonia Salazar R.N.) lidocaine 5 % 1 patch (LIDODERM) 1 patch, transdermal, Administer over 12 Hours, Daily, First dose on Tue08/14/23 at 0900, Remove after 12 hours. 0858 (Not Given - Provider: Tayler Forrest R.N. - Reason: Patient/family refused) 0852 (Not Given - Provider: Tayler Forrest R.N. - Reason: Patient/family refused) 0911 (Not Given - Provider: Zixi Valdez, R.N. - Reason: Patient/family refused) metoprolol tartrate [...] 0911 (Given - Provider: Tayler Forrest R.N.) 09 (Given - Provider: Tayler Forrest R.N.) 0916 [...] RJonahN.) 0638 (Given - Provider: Fatuma See RJonahN.)1749 (Given - Provider: Mayur MartinezNJonah) 0626 (Given - Provider: Edith Simental RJonahNJnoah)1600 (Due) Continuous Medication Order 08/24/2023 08/25/2023 08/26/2023 [...] Lactated Ringer's 1.5 mL/kg/hr ? 75 kg Vernal weight (112.5 mL/hr, rounded to 113 mL/hr), intravenous, Continuous, Starting on Tue08/22/23 at 1030, Conditional Phase Pre-Gastrografin Administration. (Rate = 1.5 mL/kg/hr ideal body weight) Lactated Ringer's 0.75 mL/kg/hr ? 75 kg Vernal weight (56.25 mL/hr, rounded to 56.3 mL/hr), [...] 1547 documented in this encounter Care Teams Egg Smeller Relationship Specialty Start Date End Date Elsewhere, Pcp PCP - General Internal Medicine 08/13/23 documented as of this encounter
--- OUTSIDE RECORDS SUMMARY | 2023-09-03 05:37 | XMS_ITS | Clinical Summary ---
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 DGZ=828.87 Bladder mass 02/29/2020 04/30/2020 Hematuria 02/29/2020 03/05/2020 Acute deep vein thrombosis (DVT) 02/29/2020 11/20/2020 S/P coronary angioplasty 11/03/2016 Chest pain 09/15/2016 03/05/2020 Elevated prostate specific antigen (PSA) 10/06/2010 03/05/2020 Hip arthritis 10/06/2010 03/05/2020 Colon polyp 07/15/2010 PATRICE (acute kidney injury) Obstructive uropathy 020 Encounters Date Type Department Care Team Description 08/31/2023 [facility] [address] [place] [address] Senthil Alvarez MD 08/23/2023 Transcribe Orders [facility] [employer] [address] [address] Provider, Non-[facility] 08/13/2023 Orders Only [facility] Scanner 1 scan: (1-Ord) [facility], ABDOMEN/PELVIS W/O, 08/13/2023 08/04/2023 11:30 AM CDT Office Visit [facility] [address] [place] [address] Sandip Garcia, AuD Hearing Aid 08/04/2023 Travel 08/02/2023 2:30 PM CDT Orders Only [facility] [address] [place] [address] Lab, [place] 08/02/2023 Travel 08/02/2023 Orders Only [facility] [address] [place] [address] Cesar Mccollum MD <No scans attached> 07/21/2023 8:55 AM CDT Office Visit [facility] [address] [place] [address] Cesar Mccollum MD Medicare ANNUAL (subsequent) Visit (83 year old); Post Procedure (Uteretal stent exchange) 07/21/2023 Travel 07/18/2023 10:00 AM CDT Anesthesia Event [facility] [address] [place] [address] Leonardo Frankel MD Purdy, Adam John, BRAKE ENGINEER 07/18/2023 9:45 AM CDT - 07/18/2023 10:54 AM CDT Surgery [facility] [address] [place] [address] Nicola Mcgarry MD CYSTOSCOPY EXCHANGE, RIGHT URETERAL STENT 07/18/2023 7:41 AM CDT - 07/18/2023 3:26 PM CDT Hospital Encounter [facility] [address] [place] [address] Nicola Mcgarry MD Other hydronephrosis (Primary Dx) Discharge Disposition: Home Self Care 07/18/2023 Travel 07/15/2023 8:20 AM CDT Preop Visit [facility] [address] [place] [address] Shannan Bain DO Pre-Op Exam (/BLADDER SURGERY [facility] DR[facility] MCGARRY 07/18/23) 07/15/2023 Travel 07/11/2023 Orders Only [facility] Scanner 1 scan: (1-Ord) [facility], CLINICAL LABORATORY REPORT, 07/11/2023 07/06/2023 Telephone [facility] [address] [place] [address] Cesar Mccollum MD Follow Up 07/05/2023 4:00 PM CDT Orders Only [facility] [address] [place] [address] Lab, [place] 07/05/2023 Travel 07/05/2023 Orders Only [facility] [address] [place] [address] Cesar Mccollum MD <No scans attached> 07/01/2023 8:30 AM CDT Ancillary Procedure [facility] [address] [place] [address] 07/01/2023 Travel 06/25/2023 Orders Only [facility] Scanner 1 scan: (1-Ord) [facility], 06/25/2023 06/23/2023 Transcribe Orders [facility] [address] [place] [address] Nicola Mcgarry MD from Last 3 Months Immunizations Name Administration Dates Next Due COVID-19 Vaccine Spikevax (M oderna 50mcg/0.5mL) 12YO+ [id number] Formula PF 07/21/2023,03/08/2023 COVID-19 vaccine (Pfizer-Bio NTech [...] Description 10/04/2023 1:00 PM CDT Office Visit [facility] [address] [place] [address] Regan Miller MD [address] [place] [address] Health Maintenance Due Date Last Done Comments Zoster (shingles) series for age 50+ (1 of 2) 1959 COVID-19 vaccine series ( season) 2023 07/21/2023, 03/08/2023, 09/13/2022, Additional history [...] Completed 4 Medical Devices Implanted Type Area Etl Data Architect Device Identifier Shelf Expiration Date Model / Serial / Lot Stent Uret [id number] Contour - [id number] Implanted:Qty: 1 on 07/18/2023 by Nicola Mcgarry MD at [facility] Right: Ureter C Urology 02/27/2026 [id number] / / [id number] Procedures Procedure Name Priority Date/Time Associated Diagnosis [...] - 17.5 g/dL 08/02/2023 2:31 PM CDT [facility] MCV 89 80 - 100 fL 08/02/2023 2:31 PM CDT [facility] Blood BLOOD SPECIMEN / Unknown Venipuncture / Unknown 08/02/2023 2:26 PM CDT 08/02/2023 2:26 PM CDT Cesar Mccollum MD HEMATOLOGY Performing Organization Address City/[facility]/ZIP Co de Phone Number [facility] [address] [place] [address], * HEMOGLOBIN A1C SCREENING (07/21/2023 9:58 AM CDT) HEMOGLOBIN A1C SCREENING 5.4 <=6.4 % 07/21/2023 5:56 PM CDT [facility] Blood BLOOD SPECIMEN / Unknown Venipuncture / Unknown 07/21/2023 9:58 AM CDT 07/21/2023 10:00 AM CDT Narrative [facility] - 07/21/2023 5:56 PM CDT ? (<5.7%) ?Normal ? (5.7% to 6.4%) ? Indicates prediabetes ? (>=6.5%) ? Confirms diabetes Falsely low levels may be seen with: Recent Transfusion, Recent Significant Blood Loss, Hemolytic Diseases, or Falsely elevated levels may be seen with: Untreated Anemias, Splenectomy Cesar Mccollum MD CHEMISTRY Performing Organization Address [facility]/ZIP Co de Phone Number [facility] [address] [address], [place] * XR RETROGRADE PYELOGRAM W/WO KUB [...] BASIC METABOLIC PANEL (07/15/2023 9:40 AM CDT) [facility] SODIUM 141 136 - 145 mmol/L 07/15/2023 5:14 PM CDT [facility] POTASSIUM 4.7 3.5 - 5.1 mmol/L 07/15/2023 5:14 PM CDT [facility] CHLORIDE 106 98 - 107 mmol/L 07/15/2023 5:14 PM CDT [facility] CO2,TOTAL 24 22 - 29 mmol/L 07/15/2023 5:14 PM CDT [facility] ANION GAP 11 5 - 18 07/15/2023 5:14 PM CDT [facility] GLUCOSE 91 70 - 99 mg/dL 07/15/2023 5:14 PM CDT [facility] CALCIUM 9.3 8.8 - 10.2 mg/dL 07/15/2023 5:14 PM CDT [facility] BUN 22 8 - 23 mg/dL 07/15/2023 5:14 PM CDT [facility] CREATININE 1.32(H) 0.70 - 1.20 mg/dL 07/15/2023 5:14 PM CDT [facility] BUN/CREAT RATIO 17 10 - 20 5:14 PM CDT [facility] eGFR 53(L) >90 mL/min/1.7 3m2 07/15/2023 5:14 PM CDT [facility] Comment:As of 2021, eG FR [...] 9:40 AM CDT Shannan Bain DO CHEMISTRY [facility] [address] [place] [address], * SCAN-LABORATORY REPORT (07/11/2023 12:00 AM CDT) [...] Code Status Discussion: Reviewed Preferences Care Teams Horse Breaker Relationship Specialty Start Date End Date Cesar Mccollum MD [address] [place] [address] PCP - General Family Practice 03/04/20 Nicola Mcgarry MD [address] [place] [address] Surgery - Urology 03/13/20 Mireya Tan MD [address] [address] Hematology - Pathology 03/13/20
--- OUTSIDE RECORDS SUMMARY | 2023-09-03 05:37 | XMS_ITS | Encounter Summary ---
Author Organization [facility] Address [address] [place] [address] Care Team Providers Care Armature Varnisher Name Role Phone Elsewhere, Pcp Primary Care Provider Unavailabl e Encounter Details Date Type Department Care Team (Latest Contact Info) Description 08/13/2023 Intake [facility] Social History Tobacco Use Types Packs/Day Years Used Date Smoking Tobacco: Never Smokeless Tobacco: Never [facility] Utilities Answer Date Recorded In the past 12 months has [facility] electric, gas, oil, or water company [...] CDT Procedure visit Department of Urology in [place], [place] [address] [place] [address] Sima Venegas M.D. [address] [place] [address] documented as of this encounter Visit Diagnoses Not on filedocumented in this encounter Care Teams Armature Varnisher Relationship Specialty Start Date End Date Elsewhere, Pcp PCP - General Internal Medicine 08/13/23 documented as of this encounter
--- OUTSIDE RECORDS SUMMARY | 2023-09-03 05:37 | XMS_ITS | Data Portability ---
Author Organization [facility], [facility] Address [address] [place] [address] Care Team Providers Care Ladle Handler Name Role Phone MASOUD SAUER Primary Care Provider Assessment No assessment recorded. Plan of Treatment Reminders Order Date Submit Date Provider Last Modified By Organization Details Last Modified Time Details Appointments None recorded . Lab urinalys is, dipstick 2023 024 [email or web address] [facility], [address] [place], [address], 4 15:08:54 culture, urine 2023 024 [facility], [address], [place], [address], 4 10:11:11 Referral None recorded . Procedures None recorded . Surgeries cystosco py with ureteral stent exchange (SURG) 2021 022 [email or web address] Not available 2 15:46:30 cystosco py with ureteral stent exchange (SURG) 2021 022 [email or web address] Not available 2 16:50:47 Imaging None recorded . Medication Orders Bactrim DS 800 mg-160 mg tablet 2023 024 [id number], [address] [place], [place], [phone], 4 16:19:28 Myrbetri q 50 mg tablet,e xtended release 2021 022 [facility] #[id number], [address] , [place], [place], [phone], 17:50:02 Patient TargetsNo targets recorded. Patient InstructionsNo instructions recorded. Reason for Referral None Reported. Results Created Date Observation Date Name Description Value Unit Range Abnormal Flag LastModifiedBy Organization Detail LastModifiedTime 06/23/1906/23/2023 URINE CULTU RE final report MICROB IOLOGY RESULT S Not Available [facility] [address], [place], [address], 06/25/2023 10:11:11 06/23/19 24 06/23/2023 urina lysis , dipst ick Color-Status Red Not Available [facility] [address], [place], [address], 06/23/2023 15:08:10 06/23/19 24 06/23/2023 urina lysis , dipst ick pH-Status 7.5 Not Available [facility] [address], [place], [address], 06/23/2023 15:08:10 06/23/19 24 06/23/2023 urina lysis , dipst ick Protein-Stat us >=9.0 Not Available [facility] [address], [place], [address], 06/23/2023 15:08:10 06/23/19 24 06/23/2023 urina lysis , dipst ick Nitrates-Sta tus negati ve Not Available [facility] [address], [place], [address], 06/23/2023 15:08:10 06/23/19 24 06/23/2023 urina lysis , dipst ick Blood-Status Large Not Available [facility] [address], [place], [address], 06/23/2023 15:08:10 06/23/19 24 06/23/2023 urina lysis , dipst ick Leuko-Status Negati ve Not Available [facility] [address], [place], [address], 06/23/2023 15:08:10 06/23/19 24 06/23/2023 urina lysis , dipst ick Specimen Type Voided Not Available [facility] [address], [place], [address], 06/23/2023 15:08:10 03/04/20 20 03/03/2020 NM, bone scan, whole body No observ ation record ed. [email or web address] [facility] [address], [place], [address], 03/11/2020 18:09:57 07/04/19 24 07/01/2023 CT, abdom en + pelvi s, w/o contr ast No observ ation record ed. [email or web address] [facility] [address] [place] [address], [place], [address], 09/01/2023 14:40:29 07/18/19 24 07/18/2023 XR, kidne y + urete r + bladd er No observ ation record ed. [email or web address] [facility] [address], [place], [address], 07/22/2023 15:56:19 Result Notes None recorded. Procedures Surgical History Date Name Laterality Status Provider Name and Address Organization Details Recorded Time Bladder Scan completed Rabia matthews [facility] 06/23/2023 15:08:00 Cystoscopy completed Nicola Ware MD [address], [place], [address], [facility] 12/30/2021 17:11:17 Colonoscopy completed Nicola Ware MD [address] [place] [address],[address], [place], [address], [facility] 12/30/2021 17:11:22 Imaging Results Imaging Date Name Status LastModified by Organiz ation Details LastModified Time 03/03/2020 NM, bone scan, whole body completed [email or web address] [facility] [address], [place], [address], 03/11/2020 18:09:57 07/01/2023 CT, abdomen + pelvis, w/o contrast completed [address] [facility] [address], [place], [address], 09/01/2023 14:40:29 07/18/2023 XR, kidney + ureter + bladder completed [email or web address] [address], [place], [address], 07/22/2023 15:56:19 Procedure Notes None recorded. Medical [...] COLONOSCO PY PREP INSTRUCTI ONS RECEIVED FROM [facility] active Not Available Not Available No t Available furosemide 20 mg tablet TAKE 1 TABLET BY MOUTH DAILY active Not Available Not Available No t Available cefuroxime axetil 500 mg tablet active Not Available Not Available No t Available polyethylen e glycol 3350 17 gram/dose oral powder MIX AND DRINK DIRECTED IN COLONOSCO PY PREP INSTRUCTI ONS RECEIVED FROM [facility] active Not Available Not Available [...] Updated DateTime 12/30/2021 177.8 cm 27.4 kg/m2 65062.14 g Nicola Ware MD [address], [address], [facility] 12/30/2021 17:10:12 Date Recorded Body height Body mass index (BMI) Body weight Provider Name and Address Organization Details Last Updated DateTime 03/12/2022 177.8 cm 27.4 kg/m2 15728.14 g Rabia Ferrell [facility] 03/12/2022 13:55:47 Social History Question Answer Notes LastModified by Organizat ion Details LastModified Time Tobacco Smoking Status Never Smoker Nicola Ware MD [address], [address], [facility] 12/30/2021 17:11:00 What Is Your [...] Encounter Closed Date Diagnosis/Indication Diagnosis SNOMED-CT Code [id number] MD MICHELLE [facility] [address] [place] [address] 12/30/2021 16:01:19 01/01/2022 09:36:50 Increased frequency of urination 715246672 Malignant tumor of prostate 851806261 Hydronephrosis [id number] Aliza Landeros [facility] [address] [place] [address] 03/12/2022 13:13:50 03/15/2022 14:00:47 Increased frequency of urination 765506818 Malignant tumor of prostate 732175721 Hydronephrosis 73096258 [id number] MD MICHELLE [facility] [address] [place] [address] 06/23/2023 14:16:52 06/24/2023 08:40:38 Blood in urine 54605593 Health Concerns Section Related Observation LastModified by Organization Detai ls LastModified Time None Recorded Concern Status LastModified by Organization Details LastModified Time None Recorded Advance Directives Directive None Recorded Payers Encounter Date Sequence Insurance Name Policy Number Policy Krishnan Covered Member ID Krishnan Member ID Guarantor Name 06/23/2023 1 [employer] (MEDICARE REPLACEMENT/ ADVANTAGE - PPO) [id number] José Miguel D Braucher [id number] José Miguel D Braucher 03/12/2022 1 [employer] (MEDICARE REPLACEMENT/ ADVANTAGE - PPO) [id number] José Miguel D Braucher [id number] José Miguel D Braucher 12/30/2021 1 [employer] (MEDICARE REPLACEMENT/ ADVANTAGE - PPO) [id number] José Miguel D Braucher [id number] José Miguel D Braucher Notes Date Note Type Note Provider Name and Address Organization Details Recorded Time 12/30/2021 text/html HPI Notes: Excer pt from hospital consultation... 81 y.o. year old male who was admitted to [facility] for gross hematuria & CT [...] some of the history. Nicola Ware MD [address] [place] [address],[address], [place], [address], [place] [facility] 12/30/2021 23:07:10 03/12/2022 text/html HPI Notes: Excer pt from hospital consultation... 81 y.o. year old male who was admitted to [facility] for gross hematuria & CT [...] some of the history. Nicola Ware MD [address] [place] [address],[address], [address], [facility] 03/12/2022 17:21:47 06/23/2023 text/html HPI Notes: 83 Y male here after calling triage this AM with hematuria/pain with urination. Patient has stent in place, last exchange 02/08/2022. 06/23/23 visit completed by Curry Ware MD [address] [place] [address],[address], [place], [address], [facility] 06/23/2023 16:19:33
--- OUTSIDE RECORDS SUMMARY | 2023-09-03 05:37 | XMS_ITS | Encounter Summary ---
Author Organization [facility] Address [address] [place] [address] Care Team Providers Care Goat Driver Name Role Phone Elsewhere, Pcp Primary Care Provider Unavailabl e Encounter Details Date Type Department Care Team (Late st Contact Info) Description 08/13/2023 4:35 PM CDT Ancillary Procedure Department of Radiology in [place], [place] [address] [place] [address] Carlos Alberto Henson M.D. [address] [place] [address] Social History Tobacco Use Types Packs/Day Years Used Date Smoking Tobacco: Never Smokeless Tobacco: Never [facility] Utilities Answer Date Recorded In the past 12 months has [facility] electric, gas, oil, or water company [...] your living situation today? I have a [facility] place to live 08/13/2023 Sex and Gender Information Value Date Recorded Sex Assigned at Not on file Gender Identity Not on file Sexual Orientation Not on file documented as of this encounter Plan of Treatment Upcoming Encounters Date Type Department Care Team (Late st Contact Info) Description 09/07/2023 11:00 AM CDT Procedure visit Department of Urology in [place], [place] [address] [place] [address] Sima Venegas M.D. [address] [place] [address] documented as of this encounter Procedures Procedure [...] on filedocumented in this encounter Care Teams Goat Driver Relationship Specialty Start Date End Date Elsewhere, Pcp PCP - General Internal Medicine 08/13/23 documented as of this encounter
== END 2023-08-30 18:21 | disposition home or self-care (01) ==
LOC: AMB 09-03 05:31
PROVIDERS: PCP Family Medicine; Visit Provider Family Medicine
DX: R33.9 Retention of urine, unspecified (principal); T83.9XXA Unspecified complication of genitourinary prosthetic device, implant and graft, initial encounter
CPT/HCPCS: A0425; A0429

== ENCOUNTER 2023-09-16 08:51 | Outpatient (CLI) | payer MEDICARE, OTHER, SELFPAY ==
--- OUTSIDE RECORDS SUMMARY | 2023-09-16 08:55 | XMS_ITS | Clinical Summary ---
Author Organization [facility] Address [address] [place] [address] Care Team Providers Care Chicken And Fish Butcher Name Role Phone Cesar Mccollum Primary Care Provider [phone] Allergies No known active allergies Medications Medication [...] this topic Medical Devices Implanted Type Area Assistant Analyst Device Identifier Shelf Expiration Date Model / Serial / Lot Stent Ureteral Polaris Ultra [id number] - [id number] Implanted:Qty : 1 on 02/08/2022 by Nicola Ware MD at [facility] Stent Right: Ureter [employer] [id number] 10/08/2024 [id number] / [id number] Explanted Type Area Assistant Analyst Device Identifier Shelf Expiration Date Model / Serial / Lot Stent Came Out Of The Right Ureter Explanted:Qty: 1 on 02/08/2022 by Nicola Ware MD at [facility] Right: Urethra Advance Directives For more information, please contact: [phone] Documents on File Type Date Recorded Patient Electric Spot Welder Expl anation Advance Directives and Living Will 02/17/2022 Health Care Directiv e 05/15/2021 Healthcare Agents on File Name Relationship Healthcare Agent Relationship Communication Mindy Waterman Daughter [employer] Alterna te Health Care Agent Meera Vega Spouse Health Care Agent [id number] (Home) Favio Vega Son [employer] Altern ate Health Care Agent Tereso Vega Son [employer] Alterna te Health Care Agent Care Teams Chicken And Fish Butcher Relationship Specialty Start Date End Date Cesar Mccollum [address] [place] [address] PCP - General Family Medicine 11/22/22
--- OUTSIDE RECORDS SUMMARY | 2023-09-16 08:56 | XMS_ITS | Referral Summary ---
Author Organization [facility] Address [address] [place] [address] Care Team Providers Care Feed Handler Name Role Phone Cesar Mccolulm Primary Care Provider [phone] Allergies No known active allergies Medications Medication [...] on file Medical Devices Implanted Type Area Mechanical System Technician Device Identifier Shelf Expiration Date Model / Serial / Lot Stent Ureteral Polaris Ultra [id number] - [id number] Implanted:Qty : 1 on 02/08/2022 by Nicola Ware MD at [facility] Stent Right: U[employer]ter [employer] [id number] 10/08/2024 [id number] Explanted Type Area Mechanical System Technician Device Identifier Shelf Expiration Date Model / Serial / Lot Stent Came Out Of The Right Ureter Explanted:Qty: 1 on 02/08/2022 by Nicola Ware MD at [facility] Right: Urethra Advance Directives For more information, please contact: [phone] Documents on File Type Date Recorded Patient Dining Manager Expl anation Advance Directives and Living Will 02/17/2022 Health Care Directiv e 05/15/2021 Healthcare Agents on File Name Relationship Healthcare Agent Relationship Communication Mindy Waterman Daughter [employer] Alterna te Health Care Agent Meera Vega Spouse Health Care Agent [id number] (Home) Favio Vega Son Co-First Altern ate Health Care Agent Tereso Vega Son [employer]-First Alterna te Health Care Agent Care Teams Feed Handler Relationship Specialty Start Date End Date Cesar Mccollum [address] [place] [address] PCP - General Family Medicine 11/22/22
--- OUTSIDE RECORDS SUMMARY | 2023-09-16 08:56 | XMS_ITS | Clinical Summary ---
Author Organization [facility] Address [address] [place] [address] Care Team Providers Care Casing Soaker Name Role Phone Elsewhere, Pcp Primary Care Provider Unavailabl e Source Comments Patient records contain information from all sites at [facility]. For routine questions regarding patient records, call [phone] during business hours, M-F 8:00 AM - 5:00 PM Central Time. Record requests for emergency care only can be directed to [phone] at any time.[facility] Allergies No known active allergies Medications Medication Sig Dispensed Refills Start Date End Date Status amLODIPine (NORVASC) 10 mg tablet Take 10 mg by mouth daily. Takes in the afternoon, 1 to 2 pm 0 Active clopidogreL (PLAVIX) 75 mg tablet Take 75 mg by mouth every morning. 0 Active metoprolol succinate (TOPROL-XL) 50 mg 24 hr tablet Take 50 mg by mouth at bedtime. 0 Active nitroglycerin (NITROSTAT) 0.[address] 0.4 mg under the tongue every 5 (five) minutes as needed for chest pain. If chest pain continues after 5 minutes, take the second dose and call [phone] Active tamsulosin (FLOMAX) 0.4 mg 24 hr capsule TAKE 1 CAPSULE(0.4 MG) BY MOUTH DAILY 30 capsule 1 Active Additional Information Patient taking differently: 0.4 mg oral Daily at bedtime, Informant: Self, Child, Reported on 09/09/2023 enzalutamide (XTANDI) 40 mg capsule Take 120 mg by mouth every morning. Take with or without food at the same time each day. Swallow it whole. Active iron,carbonyl-v itamin C (VITRON-C) 65 mg iron- [address] tablet Take 65 mg of iron by mouth every morning. Do not crush or chew. Active coenzyme Q10 (CO Q-10) 200 mg capsule Take 200 mg by mouth daily. Active cholecalciferol (Vitamin D3) 50 mcg (2,000 Unit) tablet Take 50 mcg by mouth daily. Active rosuvastatin (CRESTOR) 40 mg tablet Take 40 mg by mouth at bedtime. Active mirabegron (MYRBETRIQ) 50 mg 24 hr tablet Take 50 mg by mouth daily. Takes in the afternoon, 1-2 pm Active Xarelto 10 mg tablet Take 10 mg by mouth every morning. Active trospium (SANCTURA) 20 mg tablet Take 1 tablet (20 mg total) by mouth 2 (two) times a day as needed (bladder spasms). please stop 24 hours prior to catheter removal 20 tablet 4 Active sulfamethoxazol e-trimethoprim (BACTRIM DS) 800-160 mg per tablet Take 1 tablet by mouth every 12 (twelve) hours for 2 days. 4 tablet 4 09/17/19 24 Active cefdinir (OMNICEF) 300 mg capsule Take 1 capsule (300 mg total) by mouth 2 (two) times a day before breakfast and dinner for 2 days. Then take 1 capsule 2 times a day before breakfast and dinner for 3 days the day before, day of, day after catheter removal. 10 capsule 4 09/05/19 24 Discontinued(Sto p Taking at Discharge) bacitracin 500 unit/gram ointment Apply 1 Application topically 4 (four) times a day as needed (catheter irritaiton). Apply to tip of penis as needed for catheter irritation. 30 g 4 09/09/19 24 Discontinued cefdinir (OMNICEF) 300 mg capsule [...] Encounters Date Type Department Care Team Description 09/15/2023 Clinical Communication [facility] [address] [place] [phone] Yasmine Loco 09/09/2023 12:10 PM CDT Ancillary Procedure Department of Nursing 09/09/2023 7:24 AM CDT - 09/15/2023 5:28 PM CDT Hospital Encounter [facility], [facility], Sixth Floor [address] [place] [phone] Gerri Merrill M.D., Ph.D. Sumit Holbrook M.D. Hematuria (Primary Dx) Discharge Disposition: Home or Self Care 09/09/2023 Documentation Department of Urology in [place], [place] [address] [place] [phone] Ko Victoria M.D. 09/06/2023 Orders Only Section of Hyperbaric Medicine in [address] [phone] Kira Ferraro APRN, C.N.P., M.S.N. 09/06/2023 Clinical Communication [facility] [address] [place] [phone] Yasmine Loco 09/01/2023 10:05 AM CDT Ancillary Procedure Department of Nursing 08/31/2023 12:36 PM CDT - 08/31/2023 2:31 PM CDT Surgery [facility] [address] [place] [phone] Mayur Alvarez M.D. CYSTOSCOPY EVACUATION CLOTS 08/31/2023 12:34 PM CDT Anesthesia Event [facility] [address] [place] [phone] Joe Stoll M.D. Gran, Terry L, APRN, CRNA 08/31/2023 12:25 PM CDT Ancillary Procedure Department of General Surgery 08/30/2023 7:35 PM CDT - 09/05/2023 4:09 PM CDT Hospital Encounter [facility], [facility], First Floor [address] [place] [phone] Kirstin Hughes M.D. Thompson, R. Houston, M.D. Hematuria (Primary Dx); Tachycardia; Hematuria Gross Discharge Disposition: Home-Health Care [facility] 08/30/2023 Documentation Department of Urology in [place], [place] [address] [place] [phone] Corin Ring M.D. 08/30/2023 Intake [facility] 08/26/2023 Orders Only Department of Urology in [place], [place] [address] [place] [phone] Paula Hernandez M.D. 08/23/2023 12:45 AM CDT Ancillary Procedure Department of Nursing 08/15/2023 8:30 AM CDT Anesthesia Event [facility] [address] [place] [phone] Hayde Song M.D. 08/15/2023 7:55 AM CDT - 08/15/2023 11:23 AM CDT Surgery [facility] [address] [place] [phone] Boubacar Brock M.D. Palliative EXPLORATORY LAPAROTOMY, CYSTOTOMY CLOSURE, RIGHT URETERAL STENT EXCHANGE 08/13/2023 4:35 PM CDT Ancillary Procedure Department of Radiology in [place], [place] [address] [place] [phone] Carlos Alberto Henson M.D. 08/13/2023 3:42 PM CDT - 08/26/2023 4:11 PM CDT Hospital Encounter [facility], [facility], Sixth Floor [address] [place] [phone] Darnell Garcia M.D. Boubacar Brock M.D. Decline Functional Status [R53.81] (Primary Dx); Hematuria [R31.9] Discharge Disposition: Home or Self Care 08/13/2023 Intake [facility] from Last 3 Months Social History Tobacco Use Types Packs/Day Years Used Date Smoking Tobacco: Never Smokeless Tobacco: Never Tobacco Cessation:Counseling Given: Not Answered [facility] Utilities Answer Date Recorded In the past 12 months has e [employer], [employer], oil, or water [employer] threatened to shut off services in your home? No 09/09/2023 Humiliation, Afraid, Rape, and Kick questionnair e Answer Date Recorded Within the last year, have y ou been afraid of your partner or ex-partner? No 09/09/2023 Within the last year, have y ou been humiliated or emotionally abused in other ways by your partner or ex-partner? No Within the last year, have y ou been kicked, hit, slapped, or otherwise physically hurt by your partner or ex-partner? No 09/09/2023 Within the last year, have y ou been raped or forced to have any kind of sexual activity by your partner or ex-partner? No 09/09/2023 Hunger Vital Sign Answer Date Recorded Within the past 12 months, y ou worried that your food would run out before you got the money to buy more. Never true 09/09/19 24 Within the past 12 months, t he food you bought just didn't last and you didn't have money to get more. Never true 09/09/2023 PRAPARE - Transportation Answer Date Re corded In the past 12 months, has l ack of transportation kept you from medical appointments or from getting medications? No 08/11 In the past 12 months, has l ack of transportation kept you from meetings, work, or from getting things needed for daily living? No 09/09/2023 Nutrition Answer Date Recorded Nutrition: EVOO Fat Source 13 09/22 Nutrition: Servings of Fruits/Vegetables per Day Not on file 09/22/2018 Dental Answer Date Recorded Dental: Regular Dentist Unknown 05/30/19 21 Housing Stability Answer Date Recorded What is your living situation today? I have a [facility] place to live 09/09/2023 Sex and Gender Information Value Date Recorded Sex Assigned at Not on file Gender Identity Not on file Sexual Orientation Not on file Last Filed Vital Signs Vital Sign Reading Time Taken Comments Blood Pressure 168/77 09/15/2023 4:00 PM CDT Pulse 76 09/15/2023 4:00 PM CDT Temperature 36.5 ??C (97.7 ??F) 09/15/2023 4:00 PM CD T Respiratory Rate 17 09/15/2023 4:00 PM CDT Oxygen Saturation 96% 09/15/2023 4:00 PM CDT Inhaled Oxygen Concentration - - Weight 84.5 kg (186 lb 4.6 oz) 09/11/2023 1:04 P M CDT Height 180.3 cm (5' 10.98) 09/14/2023 2:01 PM C DT Body Mass Index 25.99 09/11/2023 1:04 PM CDT Plan of Treatment Upcoming Encounters Date Type Department Care Team (Late st Contact Info) Description 10/14/2023 1:00 PM CDT Procedure visit Department of Urology in [place], [place] [address] [place] [phone] Paula Hernandez M.D. [address] [place] [phone] Health Maintenance Due Date Last Done Comments Zoster Vaccines (1 of 2) 1989 Depression Screening (Annual PHQ-2) 04/11/2023 Fall Risk Screen (Annual) 04/11/2023 DTaP,Tdap,and Td Vaccines (2 - Td or Tdap) 09/07/2026 09/07/2016 Influenza Vaccine Completed 03/08/2023, 01/28/2022 COVID-19 Vaccine Completed 07/21/2023, , 09/13/2022, Additional history exists Pneumococcal vaccine (65+ years) Completed 07/21/19 24 Medical Devices Implanted Type Area [employer] Device Identifier Shelf Expiration Date Model / Serial / Lot Clp Hrzn Ti 6 Clp Lg Orng - [id number] Implanted:Qt y: 1 on 08/15/2023 by Boubacar Brock M.D. at [facility] Hardware e.g. pins/screws /rods [employer] [id number] 02/29/2028 [id number] / / [id number] Clp Hrzn Ti 6 Clp Lg Orng - [id number] Implanted:Qt y: 1 on 08/15/2023 by Boubacar Brock M.D. at [facility] Hardware e.g. pins/screws /rods [employer] [id number] 02/29/2028 [id number] / / [id number] Clp Hrzn Ti 6 Clp Md Monty - [id number] Implanted:Qt y: 1 on 08/15/2023 by Boubacar Brock M.D. at [facility] Hardware e.g. pins/screws /rods [employer] [id number] 03/13/2028 [id number] / / [id number] 1 Clp Hrzn Ti 6 Clp Md Monty - [id number] Implanted:Qt y: 1 on 08/15/2023 by Boubacar Brock M.D. at [facility] Hardware e.g. pins/screws /rods [employer] [id number] 03/21/2028 [id number] / / [id number] 3 Stnt Uret Inl 6fx24 - [id number] Implanted:Qt y: 1 on 08/15/2023 by Jakob De Paz M.D. at [facility] Ureteral Stent N/A: Ureter [employer] [id number] 11/18/2027 [id number] / / [id number] Procedures Procedure Name Priority Date/Time Associated Diagnosis Comments CBC WITHOUT DIFFERENTIAL, B Routine 09/15/2023 3:37 AM CDT ADULT OXYGEN THERAPY Routine 09/14/2023 8:01 AM CDT HEPARIN LEVEL ANTI-XA ASSAY, P Timed 09/14/2023 3:19 AM CDT CBC WITHOUT DIFFERENTIAL, B Routine 09/14/2023 3:19 AM CDT ADULT OXYGEN THERAPY Routine 09/13/2023 8:01 PM CDT IR NEPHROSTOMY TUBE PLACEMENT LEFT RAD - Routine (most inpatients and all outpatients) 09/13/2023 2:20 PM CDT BACTERIAL CULTURE, ANAEROBIC + SUSC Timed 09/13/2023 2:17 PM CDT GRAM STAIN Timed 09/13/2023 2:17 PM CDT BACTERIAL CULTURE, AEROBIC + SUSC Timed 09/13/2023 2:17 PM CDT ADULT OXYGEN THERAPY Routine 09/13/2023 2:02 PM CDT ADULT OXYGEN THERAPY Routine 09/13/2023 8:01 AM CDT CBC WITHOUT DIFFERENTIAL, B Routine 09/13/2023 5:57 AM CDT HEPARIN LEVEL ANTI-XA ASSAY, P Routine 09/13/2023 5:56 AM CDT ACTIVATED PARTIAL THROMBOPLASTIN TIME (APTT), P Routine 09/13/2023 5:56 AM CDT BASIC METABOLIC PANEL, S/P Routine 09/13/2023 5:56 AM CDT ADULT OXYGEN THERAPY Routine 09/12/2023 8:00 PM CDT NM KIDNEY DMSA RAD - Routine (most inpatients and all outpatients) 09/12/2023 12:21 PM CDT TRANSFUSE RED BLOOD CELLS Routine 09/12/2023 8:56 AM CDT ADULT OXYGEN THERAPY Routine 09/12/2023 8:01 AM CDT TRANSFUSE RED BLOOD CELLS Routine 09/12/2023 6:27 AM CDT ACTIVATED PARTIAL THROMBOPLASTIN TIME (APTT), P Routine 09/12/2023 3:42 AM CDT CBC WITHOUT DIFFERENTIAL, B Routine 09/12/2023 3:42 AM CDT ADULT OXYGEN THERAPY Routine 09/11/2023 8:00 PM CDT BASIC METABOLIC PANEL, S/P Routine 09/11/2023 8:23 AM CDT CBC WITHOUT DIFFERENTIAL, B Routine 09/11/2023 8:23 AM CDT ADULT OXYGEN THERAPY Routine 09/11/2023 8:00 AM CDT ACTIVATED PARTIAL THROMBOPLASTIN TIME (APTT), P Timed 09/10/2023 11:42 PM CDT US URINARY BLADDER RAD - Routine (most inpatients and all outpatients) 09/10/2023 8:41 PM CDT ADULT OXYGEN THERAPY Routine 09/10/2023 8:01 PM CDT ACTIVATED PARTIAL THROMBOPLASTIN TIME (APTT), P Timed 09/10/2023 6:09 PM CDT ACTIVATED PARTIAL THROMBOPLASTIN TIME (APTT), P Timed 09/10/2023 10:11 AM CDT ADULT OXYGEN THERAPY Routine 09/10/2023 8:01 AM CDT CBC WITHOUT DIFFERENTIAL, B Routine 09/10/2023 3:27 AM CDT ACTIVATED PARTIAL THROMBOPLASTIN TIME (APTT), P Timed 09/10/2023 12:06 AM CDT ADULT OXYGEN THERAPY Routine 09/09/2023 8:00 PM CDT ACTIVATED PARTIAL THROMBOPLASTIN TIME (APTT), P STAT 09/09/2023 5:08 PM CDT NURSING IMAGE EXAM Routine 09/09/2023 12:09 PM CDT DIPSTICK, U STAT 09/09/2023 11:28 AM CDT PH, RANDOM, U STAT 09/09/2023 11:28 AM CDT HC OSMOLALITY ASSAY URINE STAT 09/09/2023 11:28 AM CDT MICROSCOPIC MANUAL STAT 09/09/2023 11:[address], U STAT 09/09/2023 11:28 AM CDT URINALYSIS WITH MICROSCOPIC STAT 09/09/2023 11:28 AM CDT BACTERIAL CULTURE, AEROBIC + SUSC, URINE STAT 09/09/2023 11:28 AM CDT ADULT OXYGEN THERAPY Routine 09/09/2023 10:52 AM CDT ADULT OXYGEN THERAPY Routine 09/09/2023 10:52 AM CDT US KIDNEYS BILATERAL WITH BLADDER RAD - Semiurgent (Fast; most ED patients; some inpatients) 09/09/2023 10:11 AM CDT PROTHROMBIN TIME (PT), P STAT 09/09/2023 8:04 AM CDT CBC WITH DIFFERENTIAL, B STAT 09/09/2023 8:04 AM CDT BASIC METABOLIC PANEL, S/P STAT 09/09/2023 8:04 AM CDT PREPARE RED BLOOD CELLS Routine 09/09/2023 8:03 AM CDT TYPE AND SCREEN Routine 09/09/2023 8:03 AM CDT POTASSIUM, S/P Routine 09/05/2023 4:56 AM CDT BASIC METABOLIC PANEL, S/P Routine 09/05/2023 4:52 AM CDT BASIC METABOLIC PANEL, S/P Routine 09/04/2023 8:15 PM CDT CBC WITHOUT DIFFERENTIAL, B Routine 09/04/2023 8:15 PM CDT TRANSFUSE RED BLOOD CELLS Routine 09/04/2023 12:43 PM CDT PREPARE RED BLOOD CELLS Routine 09/04/2023 10:59 AM CDT TYPE AND SCREEN Routine 09/04/2023 10:59 AM CDT ADULT OXYGEN THERAPY Routine 09/04/2023 8:00 AM CDT HEPARIN LEVEL ANTI-XA ASSAY, P Timed 09/04/2023 7:34 AM CDT CBC WITHOUT DIFFERENTIAL, B Routine 09/04/2023 7:34 AM CDT HEPARIN LEVEL ANTI-XA ASSAY, P Timed 09/04/2023 12:30 AM CDT ADULT OXYGEN THERAPY Routine 09/03/2023 8:00 PM CDT BACTERIAL CULTURE, AEROBIC + SUSC, URINE Routine 09/03/2023 10:50 AM CDT ADULT OXYGEN THERAPY Routine 09/03/2023 8:00 AM CDT CBC WITHOUT DIFFERENTIAL, B Timed 09/03/2023 3:29 AM CDT HEPARIN LEVEL ANTI-XA ASSAY, P Timed 09/03/2023 3:29 AM CDT ADULT OXYGEN THERAPY Routine 09/02/2023 8:01 PM CDT ADULT OXYGEN THERAPY Routine 09/02/2023 8:01 AM CDT HEPARIN LEVEL ANTI-XA ASSAY, P [...] LINE INSERTION Routine 08/15/2023 9:51 AM CDT MD US GUIDE VASC ACCESS Routine 08/15/2023 9:51 AM CDT MD ARTL CATH/CNULA MONITOR PERC Routine 08/15/2023 9:51 [...] from Last 3 Months Results * (ABNORMAL) CBC without Differential (09/15/2023 3:37 AM CDT) Only the most recent of20 resultswithin the time period is included. Hemoglobin 9.8(L) 13.2 - 16.6 g/dL 09/15/2023 4:15 AM CDT DTL Hematocrit 31.6(L) 38.3 - 48.6 % 09/15/2023 4:15 AM CDT DTL Erythrocytes 3.65(L) 4.35 - 5.65 x10(12)/L 09/15/2023 4:15 AM CDT DTL MCV 86.6 78.2 - 97.9 fL 09/15/2023 4:15 AM CDT DTL RBC Distrib Width 16.2(H) 11.8 - 14.5 % 09/15/2023 4:15 AM CDT DTL Platelet Count 416(H) 135 - 317 x10(9)/L 09/15/2023 4:15 AM CDT DTL Leukocytes 9.6 3.4 - 9.6 x10(9)/L 09/15/2023 4:15 AM CDT DTL Blood (Blood, Venous) 09/15/2023 3:37 AM CDT 09/15/2023 4:08 AM CDT Paula Hernandez M.D. LAB BLOOD ADD-ON Performing Organization Address [facility] Co de Phone Number [facility] [address] [place] [address] * Heparin Anti-Xa Assay (09/14/2023 3:19 AM CDT) Only the most recent of16 resultswithin the time period is included. Heparin Anti-Xa, P 0.11 IU/mL 2023 4:07 AM CDT DT Comment: UFH therapeutic range: [...] or unfractionated heparin (UFH). Blood (Blood, Venous) 09/14/2023 3:19 AM CDT 09/14/2023 3:38 AM CDT Sumit Holbrook M.D. LAB BLOOD NON ADD-ON Performing Organization Address City/[facility]/ZIP Co de Phone Number [facility] [address] [place] [address], [facility] [address] [place] [address] * IR Nephrostomy Tube Placement Left (09/13/2023 2:20 PM CDT) Anatomical Region Laterality Modality Genito Urinary, Vascular Int erventional RST LOS, Vascular Interventional ARZ LOS, Vascular Interventional FLA LOS Left X-Ray Angiography Impressions 09/13/2023 2:33 PM CDT Left 10 Niuean percutaneous nephrostomy tube placement. 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 Presents for left nephrostomy tube placement. TECHNIQUE: The patient was placed prone on the fluoroscopy table. The left flank was prepared and draped in sterile fashion. Lidocaine 1% was used as local anesthetic. A 18-gauge needle was advanced into a dilated left interpolar calyx. A permanent ultrasound image was created and stored. Small amount of contrast was injected confirming position within the renal collecting system. A 0.035 inch wire was advanced centrally. The tract was further dilated and a 10 Niuean nephrostomy tube was placed with loop formed in the renal pelvis. A sample of urine was obtained and sent for culture. Contrast injection confirms position. Tube secured to the skin with a 2-0 Prolene stitch and connected to gravity bag. No immediate complication. PREPROCEDURE: Patient seen, evaluated, history reviewed, and approved for sedation. Airway, heart, and lung exam satisfactory for sedation. Discussed risks, benefits, alternatives for procedure, and/or sedation. The roles and responsibilities of care team members, residents, and fellows were discussed. Patient understands information and questions answered. Informed consent obtained from the patient. Immediately prior to starting the procedure, in the presence of the assisting personnel, a procedural pause was conducted to verify correct patient identity and verification of procedure to be performed, and as applicable, correct side and site, correct patient position, availability of implants, special equipment, or special requirements, and all image and specimen identification data. INTRAPROCEDURE: Moderate sedation was administered by sedation nurse under my supervision. The patient was continuously monitored with real time oxygen saturation, heart rate, ECG rhythm strip and blood pressure throughout administration of the sedation and performance of the procedure. The total intra-procedural sedation time was: 9 minutes. Procedure Note Suhas Turner M.D. 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 Presents forleft nephrostomy tube placement. TECHNIQUE: The patient was placed prone on the fluoroscopy table. The leftflank was prepared and draped in sterile fashion. Lidocaine 1% was used aslocal anesthetic. A 18-gauge needle was advanced into a dilated leftinterpolar calyx. A permanent ultrasound image was created and stored. Small amount of contrast wasinjected confirming position within the renal collecting system. A 0.035inch wire was advanced centrally. The tract was further dilated and a 10French nephrostomy tube was placed with loop formed in the renal pelvis. A sample of urine was obtained andsent for culture. Contrast injection confirms position. Tube secured tothe skin with a 2- 0 Prolene stitch and connected to gravity bag. Noimmediate complication. PREPROCEDURE: Patient seen, evaluated, history reviewed, and approved forsedation. Airway, heart, and lung exam satisfactory for sedation.Discussed risks, benefits, alternatives for procedure, and/or sedation.The roles and responsibilities of care team members, residents, and fellows were discussed. Patient understandsinformation and questions answered. Informed consent obtained from thepatient. Immediately prior to starting the procedure, in the presence ofthe assisting personnel, a procedural pause was conducted to verify correct patient identity and verificationof procedure to be performed, and as applicable, correct side and site,correct patient position, availability of implants, special equipment, orspecial requirements, and all image and specimen identification data. INTRAPROCEDURE: Moderate sedation was administered by sedation nurse undermy supervision. The patient was continuously monitored with real timeoxygen saturation, heart rate, ECG rhythm strip and blood pressurethroughout administration of the sedation and performance of the procedure. The total intra-procedural sedation timewas: 9 minutes. IMPRESSION: Left 10 Niuean percutaneous nephrostomy tube placement. EP Latisha Whitehead M.D. IMG IR PROCEDURE S * Gram Stain (09/13/2023 2:17 PM CDT) Gram Stain No organisms seen. White blood cells, Rare 09/13/2023 9:02 PM CDT DTL Fluid (Kidney, Left) 09/13/2023 2:17 PM CDT 09/13/2023 3:56 PM CDT Comment:Specimen Source Site : Fluid Latisha Whitehead M.D. LAB MICROBIOLOGY - GENERAL ORDERABLES Performing Organization Address [facility] Co de Phone Number [facility] [address] [place], [place] [phone] [place] [address] * APTT (Activated Partial Thromboplastin Time) (09/13/2023 5:56 AM CDT) Only the most recent of18 resultswithin the time period is included. [facility] Activated Partial Thrombopl Time, P 35 25 - 37 sec 09/13/2023 7:14 AM CDT DTL Blood (Blood, Venous) 09/13/2023 5:56 AM CDT 09/13/2023 6:53 AM CDT Sumit Holbrook M.D. LAB BLOOD ADD-ON Performing Organization Address [facility] Co de Phone Number [phone] [place] [phone] * (ABNORMAL) Basic Metabolic Panel (09/13/2023 5:56 AM CDT) Only the most recent of14 resultswithin the time period is included. [facility] Potassium, S 3.7 3.6 - 5.2 mmol/L 09/13/2023 8:42 AM CDT DTL Sodium, S 141 135 - 145 mmol/L 09/13/2023 8:42 AM CDT DTL Chloride, S 104 98 - 107 mmol/L 09/13/2023 8:42 AM CDT DTL Bicarbonate, S 26 22 - 29 mmol/L 09/13/2023 8:42 AM CDT DTL Anion Gap 11 7 - 15 09/13/2023 8:42 AM CDT DTL BUN (Blood Urea Nitrogen), S 14 8 - 24 mg/dL 09/13/2023 8:42 AM CDT DTL Creatinine 1.24 0.74 - 1.35 mg/dL 09/13/2023 8:42 AM CDT DTL Estimated GFR (eGFR) 57(L) >=60 mL/min/BSA 09/13/2023 8:42 AM CDT DTL Comment: Estimated GFR calculated using the 2020 CKD_EPI creatinine equation. Calcium, Total, S 8.5(L) 8.8 - 10.2 mg/dL 09/13/2023 8:42 AM CDT DTL Glucose, S 92 70 - 140 mg/dL 09/13/2023 8:42 AM CDT DTL Blood (Blood, Venous) 09/13/2023 5:56 AM CDT 09/13/2023 8:08 AM CDT Paula Hernandez M.D. LAB BLOOD ADD-ON [facility] [address] [place] [address], [facility] [address] [place] [address] * NM Kidney DMSA (09/12/2023 12:21 PM CDT) Anatomical Region Laterality Modality Renal, Nuclear Medicine RST LOS, Nuclear Medicine ARZ LOS, Nuclear Medicine FLA LOS, Nuclear Medicine N/A Nuclea r Medicine Impressions 09/12/2023 1:45 PM CDT Atrophic right kidney with severely reduced radiotracer uptake as described. Narrative 09/12/2023 1:45 PM CDT EXAM: ??NM KIDNEY DMSA RADIOPHARMACEUTICAL/MEDS: Route: intravenous technetium Tc 99m succimer injection (Tc-99m DMSA),3.3 millicurie TECHNIQUE: Anterior and posterior planar images of the kidneys obtained at approximately 3 hours after IV radiotracer injection. Geometric mean differential function was calculated. COMPARISON: ??Bilateral renal ultrasound 09/09/2023, CT abdomen pelvis 08/22/2023. INDICATION: ??Right hydronephrosis with atrophic right kidney, managed with indwelling ureteral stent. FINDINGS: ??Relatively normal radiotracer uptake in the left kidney. Severely reduced radiotracer uptake in the right kidney. Differential renal function in the left kidney measures 97% and in the right kidney 3%. The left kidney is normal in size. The right kidney is atrophic. Procedure Note Floresita Augustine M.D. - 09/12/2023 EXAM: NM KIDNEY DMSA RADIOPHARMACEUTICAL/MEDS: Route: intravenous technetium Tc 99m succimer injection (Tc-99m DMSA),3.3 millicurie TECHNIQUE: Anterior and posterior planar images of the kidneys obtained atapproximately 3 hours after IV radiotracer injection. Geometric meandifferential function was calculated. COMPARISON: Bilateral renal ultrasound 09/09/2023, CT abdomen pelvis08/22/2023. INDICATION: Right hydronephrosis with atrophic right kidney, managed withindwelling ureteral stent. FINDINGS: Relatively normal radiotracer uptake in the left kidney.Severely reduced radiotracer uptake in the right kidney. Differentialrenal function in the left kidney measures 97% and in the right kidney 3%.The left kidney is normal in size. The right kidney is atrophic. IMPRESSION: Atrophic right kidney with severely reduced radiotracer uptake asdescribed. Js Yang M.D. IMG NM PROCEDURES * Transfuse Red Blood Cells : (09/12/2023 11:12 AM CDT) Only the most recent of10 resultswithin the time period is included. Paula Hernandez M.D. BLOOD TRANSFUSION OR DERABLES * US Urinary Bladder (09/10/2023 8:41 PM CDT) Only the most recent of2 resultswithin the time period is included. Anatomical Region Laterality Modality Body, Ultrasound RST LOS, Ul trasound ARZ LOS, Ultrasound FLA LOS Ultrasound Impressions 09/11/2023 8:55 AM CDT Nondistended bladder. Debris and/or blood clot is again seen in the bladder, likely similar to ultrasound 09/09/2023, however it is difficult to definitively compare due to interval placement of the urinary catheter. No internal vascularity. Narrative 09/11/2023 8:55 AM CDT EXAM: US URINARY BLADDER COMPARISON: Kidney and bladder ultrasound 09/09/2023 Procedure Note Suhas Al M.D. - 09/11/2023 EXAM: US URINARY BLADDER COMPARISON: Kidney and bladder ultrasound 09/09/2023 IMPRESSION: Nondistended bladder. Debris and/or blood clot is again seen in thebladder, likely similar to ultrasound 09/09/2023, however it is difficultto definitively compare due to interval placement of the urinary catheter.No internal vascularity. Js Yang M.D. IMG US PROCEDURES * Coccyx-Nursing Image Exam (09/09/2023 12:09 PM CDT) Only the most recent of3 resultswithin the time period is included. 09/09/2023 12:0 7 PM CDT Narrative IIMS - 09/09/2023 12:09 PM CDT This order has been created and auto-finalized to support the import of images acquired without order. The clinical documentation to support these images can be found on the encounter that produced images. Provider Not In System IMG NON RAD IMAGI NG PROCEDURES Performing Organization Address [facility] Co de Phone Number [facility] NA * Osmolality, Urine (09/09/2023 11:28 AM CDT) Only the most recent of2 resultswithin the time period is included. Osmolality, U 380 150 - 1150 mOsm/kg 09/09/2023 12:19 PM CDT DTL Urine 09/09/2023 11:2 8 AM CDT 09/09/2023 11:58 AM CDT Jeffery Church M.D. LAB URINE ORDERA BLES Performing Organization Address City/[facility]/ZIP Co de Phone Number [facility] [address] [place] [address], [facility] DTL [facility] [address] [place] [address] * (ABNORMAL) Dipstick, Urine (09/09/2023 11:28 AM CDT) Only the most recent of2 resultswithin the time period is included. Hemoglobin, QL, U Large(A) Negative 09/09/2023 12:03 PM CDT DTL Leukocyte Esterase, U Large(A) Negative 09/09/2023 12:03 PM CDT DTL Nitrite, U Negative Negative 09/09/2023 12:03 PM CDT DTL Ketone, U 40(A) Negative mg/dL 09/09/2023 12:03 PM CDT DTL Glucose, U 70(A) Negative mg/dL 09/09/2023 12:03 PM CDT DTL Urine 09/09/2023 11:2 8 AM CDT 09/09/2023 11:58 AM CDT Jeffery Church M.D. LAB URINE ORDERA BLES Performing Organization Address City/[facility]/ZIP Co de Phone Number [facility] [address] [place] [address] * pH, Random, Urine (09/09/2023 11:28 AM CDT) Only the most recent of2 resultswithin the time period is included. pH, Random, U 6.3 4.5 - 8.0 09/09/2023 12:19 PM CDT DTL Urine 09/09/2023 11:2 8 AM CDT 09/09/2023 11:58 AM CDT Jeffery Church M.D. LAB URINE ORDERA BLEBryon Performing Organization Address City/[facility]/ZIP Co de Phone Number [facility] [address] [place] [address], [facility] [address] [address] * (ABNORMAL) Microscopic Manual (09/09/2023 11:28 AM CDT) Only the most recent of2 resultswithin the time period is included. Microscopy Abnormal 09/09/2023 12:37 PM CDT DTL RBC >100(A) <3 /hpf 09/09/2023 12:37 PM CDT DTL Dysmorphic RBC <25 <25 % 09/09/2023 12:37 PM CDT DTL WBC >100(A) /hpf 09/09/2023 12:37 PM CDT DTL Comment: ----REFERENCE VALUE---- <4 ??(Males) <11 (Females) Squamous Epithelial Cells, U 1-3 /hpf 09/09/2023 12:37 PM CDT DTL Urine 09/09/2023 11:2 8 AM CDT 09/09/2023 11:58 AM CDT Jeffery Church M.D. LAB URINE STEFFANY BRAVO [facility] [address] [place] [address], [facility] [address] [place] [address] * (ABNORMAL) Bacterial Culture, Aerobic + Susceptibility, Urine (09/09/2023 11:28 AM CDT) Only the most recent of3 resultswithin the time period is included. Urine Culture ENTEROBACTER CLOACAE COMPLEX >100,000 cfu/mL (A) 09/11/2023 3:17 PM CDT DTL Urine (Urine, Straight Catheter) 09/09/2023 11:28 AM CDT 09/09/2023 2:20 PM CDT Comment:Specimen Source Site : Urine Narrative Organism Antibiotic Method Susceptibility Enterobacter cloacae complex Ampicillin SUSCEPTIBILITY, LAYO (MCG/ML) mcg/mL: Resistant Enterobacter cloacae complex Ampicillin + Sulbactam SUSCEPTIBILITY, LAYO (MCG/ML) mcg/mL: Resistant Enterobacter cloacae complex Meropenem SUSCEPTIBILITY, LAYO (MCG/ML) <=0.12 mcg/mL: Susceptible Enterobacter cloacae complex Ertapenem SUSCEPTIBILITY, LAYO (MCG/ML) 0.5 mcg/mL: Susceptible Enterobacter cloacae complex Piperacillin + Tazobactam SUSCEPTIBILITY, LAYO (MCG/ML) 16/4 mcg/mL: Susceptible-dose dependent Enterobacter cloacae complex Ciprofloxacin SUSCEPTIBILITY, LAYO (MCG/ML) <=0.25 mcg/mL: Susceptible Enterobacter cloacae complex Levofloxacin SUSCEPTIBILITY, LAYO (MCG/ML) <=0.5 mcg/mL: Susceptible Enterobacter cloacae complex Cefazolin SUSCEPTIBILITY, LAYO (MCG/ML) mcg/mL: Resistant Enterobacter cloacae complex Ceftriaxone SUSCEPTIBILITY, LAYO (MCG/ML) 32 mcg/mL: Resistant Enterobacter cloacae complex Ceftazidime SUSCEPTIBILITY, LAYO (MCG/ML) >16 mcg/mL: Resistant Enterobacter cloacae complex Cefepime SUSCEPTIBILITY, LAYO (MCG/ML) <=2 mcg/mL: Susceptible Enterobacter cloacae complex Amikacin SUSCEPTIBILITY, LAYO (MCG/ML) <=4 mcg/mL: Susceptible Enterobacter cloacae complex Gentamicin SUSCEPTIBILITY, LAYO (MCG/ML) <=1 mcg/mL: Susceptible Enterobacter cloacae complex Tobramycin SUSCEPTIBILITY, LAYO (MCG/ML) <=1 mcg/mL: Susceptible Enterobacter cloacae complex Aztreonam SUSCEPTIBILITY, LAYO (MCG/ML) >16 mcg/mL: Resistant Enterobacter cloacae complex Trimethoprim + Sulfamethoxazole SUSCEPTIBILITY, LAYO (MCG/ML) <=0.5/9.5 mcg/mL: Susceptible Enterobacter cloacae complex Nitrofurantoin SUSCEPTIBILITY, LAYO (MCG/ML) <=32 mcg/mL: Susceptible Jeffery Church M.D. LAB MICROBIOLOGY - GENERAL ORDERABLES Performing Organization Address City/[facility] Co de Phone Number [facility] [address] [place] [address], [facility] [address] [address] * (ABNORMAL) Gram Stain, Urine (09/09/2023 11:28 AM CDT) Source Urine, Urine, Straight Catheter 09/09/2023 11:58 AM CDT DTL Gram Stain, U Positive(A) Negative 09/09/2023 12:16 PM CDT DTL Comment: Few Gram-negative bacilli ? Yeast Urine 09/09/2023 11:2 8 AM CDT 09/09/2023 11:58 AM CDT Jeffery Church M.D. LAB URINE ORDERA BLES Performing Organization Address City/[facility]/ZIP Co de Phone Number [facility] [address] [place], [place] [address] DTL [facility] [address] [place] [address] * (ABNORMAL) Urinalysis, with Microscopic: Urine, Straight Catheter (09/09/2023 11:28 AM CDT) Only the most recent of2 resultswithin the time period is included. Source Urine, Urine, Straight Catheter 09/09/2023 11:58 AM CDT DTL Color, U Red(A) 09/09/2023 11:58 AM CDT DTL Clarity, U Cloudy(A) 09/09/2023 11:58 AM CDT DTL Protein, U 350(H) <26 mg/dL 09/09/2023 1:02 PM CDT DTL Protein/Osmola lity 9.21(H) <0.42 ratio 09/09/2023 1:02 PM CDT DTL Predicted 24 HR Protein, U 7814(H) <229 mg/24 h 09/09/2023 1:02 PM CDT DTL Predicted Range 2480-10729 mg/24 h 09/09/2023 1:02 PM CDT DTL Comment Micro done on <2.5 mL 09/09/2023 12:27 PM CDT DTL Urine (Urine, Straight Catheter) 09/09/2023 11:28 AM CDT 09/09/2023 11:58 AM CDT Jeffery Church M.D. LAB URINE STEFFANY BRAVO [facility] [address] [place] [address], [facility] DTL [facility] [address] [place] [address] * US Kidneys Bilateral with Bladder (09/09/2023 10:11 AM CDT) Anatomical Region Laterality Modality Abdomen, Renal, Ultrasound R ST LOS, Ultrasound ARZ LOS, Ultrasound FLA LOS Bilateral Ultrasound Impressions 09/09/2023 3:37 PM CDT 1. Atrophic right kidney with moderate to severe hydronephrosis, despite the presence of ureteral stent. 2. Mild hydronephrosis on the left. 3. Patient unable to void, dependent debris/blood clot within the urinary bladder. Narrative 09/09/2023 3:37 PM CDT EXAM: US KIDNEYS BILATERAL WITH BLADDER COMPARISON: Abdominopelvic CT dated 08/22/2023 FINDINGS: Right kidney: 9.8 cm. Atrophic. Cortical thickness: Marked parenchymal thinning. Parenchymal echogenicity: Normal. Collecting system: Moderate to severe hydronephrosis. Right ureteral stent tip seen in the renal pelvis. Masses: None detected. Left kidney: 14.6 cm. Cortical thickness: Normal. Parenchymal echogenicity: Normal. Collecting system: Mild hydronephrosis. Masses: None detected. Bladder: Nondistended, echogenic sediment corresponding to debris/blood clot, similar to the prior ultrasound of 08/30/2023. Patient unable to void. Procedure Note Desmond Kruger M.D. - 09/09/2023 EXAM: US KIDNEYS BILATERAL WITH BLADDER COMPARISON: Abdominopelvic CT dated 08/22/2023 FINDINGS: Right kidney: 9.8 cm. Atrophic. Cortical thickness: Marked parenchymal thinning. Parenchymal echogenicity: Normal. Collecting system: Moderate to severe hydronephrosis. Right ureteral stenttip seen in the renal pelvis. Masses: None detected. Left kidney: 14.6 cm. Cortical thickness: Normal. Parenchymal echogenicity: Normal. Collecting system: Mild hydronephrosis. Masses: None detected. Bladder: Nondistended, echogenic sediment corresponding to debris/bloodclot, similar to the prior ultrasound of 08/30/2023. Patient unable to void. IMPRESSION: 1. Atrophic right kidney with moderate to severe hydronephrosis, despitethe presence of ureteral stent. 2. Mild hydronephrosis on the left. 3. Patient unable to void, dependent debris/blood clot within the urinarybladder. Jeffery Church M.D. Prieto US PROCEDURE S * Prothrombin Time (PT) (09/09/2023 8:04 AM CDT) Only the most recent of2 resultswithin the time period is included. Prothrombin Time, P 12.5 9.4 - 12.5 sec 09/09/2023 8:14 AM CDT STMA INR 1.1 0.9 - 1.1 09/09/2023 8:14 AM CDT STMA Comment: ----ADDITIONAL INFORMATION---- Standard intensity warfarin therapeutic range: 2.0 to 3.0 ?? High intensity warfarin therapeutic range: 2.5 to 3.5 Blood (Blood, Venous) 09/09/2023 8:04 AM CDT 09/09/2023 8:08 AM CDT Jeffery Church M.D. LAB BLOOD ADD-ON [facility] [address] [place] [address], [facility] [address] [place] [address] * (ABNORMAL) CBC with Differential, Blood (09/09/2023 8:04 AM CDT) Only the most recent of7 resultswithin the time period is included. Pathologist [facility] Hemoglobin 8.9(L) 13.2 - 16.6 g/dL 09/09/2023 8:11 AM CDT STMA Hematocrit 28.6(L) 38.3 - 48.6 % 09/09/2023 8:11 AM CDT STMA Erythrocytes 3.28(L) 4.35 - 5.65 x10(12)/L 09/09/2023 8:11 AM CDT STMA MCV 87.2 78.2 - 97.9 fL 09/09/2023 8:11 AM CDT STMA RBC Distrib Width 17.2(H) 11.8 - 14.5 % 09/09/2023 8:11 AM CDT STMA Platelet Count 384(H) 135 - 317 x10(9)/L 09/09/2023 8:11 AM CDT STMA Leukocytes 14.5(H) 3.4 - 9.6 x10(9)/L 09/09/2023 8:11 AM CDT STMA Neutrophils 13.09(H) 1.56 - 6.45 x10(9)/L 09/09/2023 8:11 AM CDT DHPM Lymphocytes 0.52(L) 0.95 - 3.07 x10(9)/L 09/09/2023 8:11 AM CDT STMA Monocytes 0.77 0.26 - 0.81 x10(9)/L 09/09/2023 8:11 AM CDT STMA Eosinophils 0.06 0.03 - 0.48 x10(9)/L 09/09/2023 8:11 AM CDT STMA Basophils <0.03 0.01 - 0.08 x10(9)/L 09/09/2023 8:11 AM CDT STMA Blood (Blood, Venous) 09/09/2023 8:04 AM CDT 09/09/2023 8:08 AM CDT Jeffery Church M.D. LAB BLOOD ADD-ON Performing Organization Address City/[facility]/ZIP Co de Phone Number [facility] [address] [place] [address], [facility] STMA [facility] [address] [place] [address] DHPM [facility] [address] [place] [address] * Type and Screen (with Reflex Antibody ID) (09/09/2023 8:03 AM CDT) Only the most recent of6 resultswithin the time period is included. Pathologist [facility] ABORh O Pos Not applicable 09/09/2023 8:47 AM CDT STRM Antibody Screen Negative Negative 09/09/2023 9:02 AM CDT STRM Type & Screen Expiration 09/12/2023 23:59 09/09/2023 8:47 AM CDT STRM Testing Location Marcio DEFAULT 09/09/2023 8:10 AM CDT STRM Blood (Blood, Venous) 09/09/2023 8:03 AM CDT 09/09/2023 8:10 AM CDT Jeffery Church M.D. LAB BLOOD BANK T EST ORDERABLES Performing Organization Address City/[facility]/ZIP Co de Phone Number [facility] [address] [place] [address], [facility] STRM [facility] [address] [place] [address] * Potassium (09/05/2023 4:56 AM CDT) Only the most recent of2 resultswithin the time period is included. Potassium, S 3.6 3.6 - 5.2 mmol/L 09/05/2023 5:49 AM CDT DTL Blood (Blood, Venous) 09/05/2023 4:56 AM CDT 09/05/2023 5:22 AM CDT Roxy Romero M.D. LAB BLOOD ADD-ON Performing Organization Address [facility] Co de Phone Number [facility] [address] [place] [address], [facility]TH[facility] [address] [place] [address] * [place] Fluoro Less Than 1 Hour [...] M.D. IMG FLUOROSCOPY PROCEDURES Performing Organization Address [facility]/ZIP Co de Phone Number 152 HOS [...] RAD IMAGI NG PROCEDURES IIMS NA * CT Cystogram without IV Contrast (08/31/2023 [...] Vieira M.D., M.S. LAB BLOO D ADD-ON [facility] [address] [place] [address], [facility] [address] [place] [address] * Lactate (08/30/2023 9:50 PM CDT) Pathologist [facility] Lactate, P 1.8 0.5 - 2.2 mmol/L 08/30/2023 10:09 PM CDT STMA Blood (Blood, Venous) 08/30/2023 9:50 PM CDT 08/30/2023 9:55 PM CDT Shannan Correa D.O., M.H.A. LAB BLOOD NON ADD-ON [facility] [address] [place] [address], [place] [facility] [address] [place] [address] * DX Chest AP or PA and [...] D.O., M.H.A. IMG DIAGNOSTIC IMAGING PROCEDURES * ECG 12 Lead (08/30/2023 7:44 PM CDT) Only the most recent of3 resultswithin the time period is included. Ventricular Rate ECG/Min 145 BPM MUSE MD Interval 136 ms MUSE QRSD Interval 64 ms MUSE QT Interval 260 ms MUSE QTC Interval 403 ms MUSE P [place] 44 degrees MUSE R [place] 9 degrees MUSE T Wave [place] -76 degrees MUSE 08/30/2023 7:44 PM CDT [...] LAB BLOOD ADD-ON Performing Organization Address City/[facility]/ZIP Co de Phone Number [facility] [address] [place] [address], [facility] [address] [place] [address] * Magnesium (08/26/2023 3:20 AM CDT) Only the most recent of6 resultswithin the time period is included. Magnesium, S 2.1 1.7 - 2.3 mg/dL 08/26/2023 4:04 AM CDT DTL Blood (Blood, Venous) 08/26/2023 3:20 AM CDT 08/26/2023 3:50 AM CDT Boubacar Brock M.D. LAB BLOOD ADD-ON Performing Organization Address City/[facility]/ZIP Co de Phone Number [facility] [address] [place], [place] [id number] [place] [address] [address] [place] [address] * (ABNORMAL) Phosphorus Inorganic (08/23/2023 9:58 PM CDT) Only the most recent of2 resultswithin the time period is included. [facility] Phosphorus (Inorganic), S 2.1(L) 2.5 - 4.5 mg/dL 08/23/2023 10:45 PM CDT DT Blood (Blood, Venous) 08/23/2023 9:58 PM CDT 08/23/2023 10:30 PM CDT Paula Hernandez M.D. LAB BLOOD ADD-ON Performing Organization Address City/[facility] Co de Phone Number [id number] [place] [address] * Triglycerides (08/23/2023 3:42 AM CDT) Only the most recent of2 resultswithin the time period is included. [facility] Triglycerides 106 mg/dL 08/23/2023 4:50 AM CDT [facility] Comment: ----REFERENCE VALUE---- Normal: <150 mg/dL Borderline High: 150-199 mg/dL High: 200-499 mg/dL Very High: > or =500 mg/dL Fasting (8 HR or more) Yes 08/23/2023 4:19 AM CDT DT Blood (Blood, Venous) 08/23/2023 3:42 AM CDT 08/23/2023 4:19 AM CDT Boubacar Brock M.D. LAB BLOOD ADD-ON Performing Organization Address City/[facility]/ZIP Co de Phone Number [address] [address] * Glucose, POCT (08/22/2023 11:38 PM CDT) [facility] Glucose, POCT, B 117 70 - 140 mg/dL 08/23/2023 1:06 AM CDT PCLX Site Capillary 08/23/2023 1:06 AM CDT PCLX Last Intake NPO 08/23/2023 1:06 AM CDT PCLX Blood 08/22/2023 11:3 8 PM CDT 08/23/2023 1:06 AM CDT Unknown Provider LAB POCT ORDERABLES- MANUAL POC [facility] [address] [place] [address], [facility] PCLX [facility] POC [address] [place] [address] * CT Abdomen Pelvis without IV Contrast [...] colon likelyrepresenting mild proctocolitis. Paula Hernandez M.D. [facility] PROCEDURES * Creatinine, Body Fluid (08/22/2023 [...] transport rates. All other fluids refer to www.[employer] for further interpretive information. This test has been modified from the base brander's instructions. Its performance characteristics were determined by [facility] in a manner consistent with CLIA requirements. This test has not been cleared or approved by the U.S. Food and Drug Administration. Fluid Type, Creatinine Fluid, Abdomen 08/22/2023 3:52 PM CDT DTL Fluid (Abdomen) 08/22/2023 3 :30 PM CDT 08/22/2023 6:36 PM CDT Corin Ring M.D. LAB BODY FLUIDS AND STOOLS ORDERABLES [facility] [address] [place] [address], [facility]THospital [facility] [address] [place] [address] * IR PICC Line Placement (08/22/2023 8:35 AM CDT) Anatomical Region Laterality Modality Chest, Pelvis, Abdomen, Vasc ular Interventional RST LOS, Vascular Interventional ARZ LOS, Vascular Interventional FLA LOS N/A X-Ray Angiography Impressions 08/22/2023 9:05 AM CDT Placement of a right IJ vein single-lumen 4 Niuean tunneled PowerPICC ready for immediate use. NR [...] advanced into the IVC and a 4 Niuean dilator advanced over the wire and attached to a one-way stopcock. A suitable exit site in the right anterior chest was anesthetized and a small incision made. A 4 Niuean single-lumen PowerPICC was then tunneled from the [...] Wireadvanced into the IVC and a 4 Niuean dilator advanced over the wire andattached to a one-way stopcock. A suitable exit site in the right anteriorchest was anesthetized and a small incision made. A 4 Niuean single-lumen PowerPICC was then tunneled fromthe skin [...] of a right IJ vein single-lumen 4 Niuean tunneled PowerPICCready for immediate use. NR Kimi [...] CDT Latisha Whitehead M.D. LAB BLOOD ADD-ON [facility] [address] [place] [address], [facility] DTBroward Health [facility] LaboratoriesM[facility] [address] [place] [address] * Place peripherally inserted central catheter (PICC) [...] and management can be found on the [employer] site. Link [email or web address]/[email or web address] Findings discussed with ??Tayler Greenwood, ?? ([id number]) on 08/17/2023 7:11 PM. Procedure Note Jj [...] management can be found on theAskMayoExpert site. [email or web address] 1725 Findings discussed with Tayler Greenwood MD ([id number]) on 08/17/2023 7:11 PM. IMPRESSION: 1. Aging, [...] Song M.D. LAB BLOOD NON ADD-O N [facility] [address] [place] [address] * Patient Status (08/15/2023 11:56 AM CDT) Only the most recent of2 resultswithin the time period is included. Temperature 36.2 37.0 deg C 08/15/2023 12:04 PM CDT STMA Blood 08/15/2023 11:5 6 AM CDT 08/15/2023 12:03 PM CDT Rae Gonzalez TRAINMASTER, CLASSROOM COORDINATOR, DNAP LAB BLOO D NON ADD-ON Performing Organization Address City/[facility]/ZIP Co de Phone Number [facility] [address] [place] [address] * Sodium, B (08/15/2023 11:56 AM CDT) Only the most recent of2 resultswithin the time period is included. Sodium, B 135 135 - 145 mmol/L 08/15/2023 12:06 PM CDT STMA Blood (Blood, Arterial Line) 08/15/2023 11:56 AM CDT 08/15/2023 12:03 PM CDT Hayde Song M.D. LAB BLOOD NON ADD-O N [facility] [address] [place] [address] * (ABNORMAL) Blood Gas with Coox, Arterial (08/15/2023 11:56 AM CDT) Only the most recent of2 resultswithin the time period is included. Pathologist [facility] pO2 166(H) 83 - 108 mm Hg [...] Song M.D. LAB BLOOD NON ADD-O N [facility] [address] [place] [address], [place] [facility] [address] [place] [address] * Potassium, Blood (08/15/2023 11:56 AM CDT) Only the most recent of2 resultswithin the time period is included. Pathologist [facility] Potassium, B 4.3 3.6 - 5.2 mmol/L 08/15/2023 12:07 PM CDT STMA Blood (Blood, Arterial Line) 08/15/2023 11:56 AM CDT 08/15/2023 12:03 PM CDT Hayde Song M.D. LAB BLOOD NON ADD-O N Performing Organization Address City/[facility] Co de Phone Number [facility] [address] [place] [address], [facility] [address] [place] [address] * (ABNORMAL) Glucose, Whole Blood (08/15/2023 11:56 AM CDT) Only the most recent of2 resultswithin the time period is included. Glucose 144(H) 70 - 140 mg/dL 08/15/2023 12:06 PM CDT [facility] Blood (Blood, Arterial Line) 08/15/2023 11:56 AM CDT 08/15/2023 12:03 PM CDT Hayde Song M.D. LAB BLOOD ADD-ON Performing Organization Address [facility] de Phone Number [facility] [address] [place] [address], [facility] [address] [place] [address] * (ABNORMAL) Calcium, Ionized (08/15/2023 11:56 AM CDT) Only the most recent of2 resultswithin the time period is included. Calcium, Ionized, B 4.53(L) 4.65 - 5.30 mg/dL 08/15/2023 12:07 PM CDT [facility] Blood (Blood, Arterial Line) 08/15/2023 11:56 AM CDT 08/15/2023 12:03 PM CDT Hayde Song M.D. LAB BLOOD NON ADD-O N [facility] [address] [place] [address], [facility] [address] [place] [address] * MD ARTL CATH/CNULA MONITOR PERC, MD US GUIDE VASC ACCESS, LDA ANE ARTERIAL [...] 08/15/2023 8:40 AM CDT Rae Gonzalez APRN, GAVIN, DNAP ? 08/15/2023 ??9:48 AM Airway Date/Time: [...] ETT location: oral VL device: glide scope [place] scope blade size: 4 Tube size: 7.5 [...] CDT Comment:Specimen Source Site : Blood Narrative [facility] - 08/20/2023 6:02 AM CDT Received Bactec aerobic and Bactec anaerobic bottles Carlos Alberto Henson M.D. LAB MICROBIOLOGY - [facility] ORDERABLES [facility] [address] [place] [address], [place] DTL [facility] [address] [place] [address] * (ABNORMAL) Hepatic Function Panel (08/13/2023 5:27 [...] Carlos Alberto Henson M.D. LAB BLOOD ADD-ON [facility] [address] [place] [address], [facility] [address] [place] [address] * Interpretation of Outside CT Abdomen and [...] (2/107). Lung bases are clear. Procedure Note Killain Montenegro M.B.B.S., M.D. - 08/13/2023 EXAM: INTERPRETATION [...] theseare concerning for metastatic disease. Carlos Alberto Hensno M.D. IMG CT PROCEDURES * CT ABDOMEN [...] Advance Directives For more information, please contact: [phone] * Full Code (Latest Code Status on File) Date Activated Date Inactivated Comments 08/30/2023 10:40 PM 09/05/2023 6:15 PM Question Answer Comments Full Code: Not Discussed Due to: Patient not available * Full Code Date Activated Date Inactivated Comments 08/13/2023 4:30 PM 08/26/2023 6:58 PM Question Answer Comments Full Code: Discussed Care Teams Casing Soaker Relationship Specialty Start Date End Date Elsewhere, Pcp PCP - General Internal Medicine 08/13/23
--- OUTSIDE RECORDS SUMMARY | 2023-09-16 08:57 | XMS_ITS | Encounter Summary ---
Author Organization [facility] Address [address] [place] [address] Care Team Providers Care Germination Worker Name Role Phone Elsewhere, Pcp Primary Care Provider Unavailabl e Encounter Details Date Type Department Care Team (Late st Contact Info) Description 09/06/2023 Orders Only Section of Hyperbaric Medicine in [place], [place] [address] [place] [address] Kira Ferraro APRN, C.N.P., M.S.N. [address] [place] [address] Social History Tobacco Use Types Packs/Day Years Used Date Smoking Tobacco: Never Smokeless Tobacco: Never [facility] Utilities Answer Date Recorded In the past [address] [facility] [employer], gas, oil, or water [employer] threatened to shut off services in your [...] your living situation today? I have a [facility] place to live 09/09/2023 Sex and Gender Information Value Date Recorded Sex Assigned at Not on file Gender Identity Not on file Sexual Orientation Not on file documented as of this encounter Plan of Treatment Upcoming Encounters Date Type Department Care Team (Late st Contact Info) Description 10/14/2023 1:00 PM CDT Procedure visit Department of Urology in [place], [place] [address] [place] [address] Paula Hernandez M.D. 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
--- OUTSIDE RECORDS SUMMARY | 2023-09-16 08:57 | XMS_ITS | Encounter Summary ---
Author Organization [facility] Address [address] [place] [address] Care Team Providers Care Program Advisor Name Role Phone Elsewhere, Pcp Primary Care Provider Unavailabl e Reason for Referral * Outpatient (Routine) - Authorized Specialty Diagnoses / Procedures Referred By Leyla t Referred To Contact Urology Diagnoses Hematuria Gross Paula Hernandez M.D. [address] [place] [address] [facility] Referral ID Status Reason Start Date Expiration Date V isits Requested Visits Authorized [id number] Authorized 09/15/2023 03/16/2025 1 1 Encounter Details Date Type Department Care Team (Late st Contact Info) Description 09/15/2023 Clinical Communication [facility] [address] [place] [phone] Yasmine Loco Social History Tobacco Use Types Packs/Day Years Used Date Smoking Tobacco: Never Smokeless Tobacco: Never [facility] Utilities Answer Date Recorded In the [...] your living situation today? I have a [facility] place to live 09/09/2023 Sex and Gender Information Value Date Recorded Sex Assigned at Not on file Gender Identity Not on file Sexual Orientation Not on file documented as of this encounter Plan of Treatment Upcoming Encounters Date Type Department Care Team (Late st Contact Info) Description 10/14/2023 1:00 PM CDT Procedure visit Department of Urology in [place], [place] [address] [place] [address] Paula Hernandez M.D. 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
--- OUTSIDE RECORDS SUMMARY | 2023-09-16 08:57 | XMS_ITS ---
Author Organization [facility] Address [address] [place] [address] Care Team Providers Care Um Specialist Name Role Phone Unavailable Unavailable Unavailable Surgery Details Not on file Complications Check Surgery Details section. Procedure Estimated Blood Loss Check Surgery Details section. Procedure Findings Check Surgery Details section. Procedure Specimens Taken Check Surgery Details section.
--- OUTSIDE RECORDS SUMMARY | 2023-09-16 08:57 | XMS_ITS | Encounter Summary ---
Author Organization [facility] Address [address] [place] [address] Care Team Providers Care Qa Manager Name Role Phone Elsewhere, Pcp Primary Care Provider Unavailabl e Encounter Details Date Type Department Care Team (Late st Contact Info) Description 09/09/2023 12:10 PM CDT Ancillary Procedure Department of Nursing Social History Tobacco Use Types Packs/Day Years Used Date Smoking Tobacco: Never Smokeless Tobacco: Never [facility] Utilities Answer Date Recorded In the past 12 months has [facility] electric, gas, oil, or water company [...] living situation today? I have a [facility] place to live 09/09/2023 Sex and Gender Information Value Date Recorded Sex Assigned at Not on file Gender Identity Not on file Sexual Orientation Not on file documented as of this encounter Plan of Treatment Upcoming Encounters Date Type Department Care Team (Late st Contact Info) Description 10/14/2023 1:00 PM CDT Procedure visit Department of Urology in [place], [place] [address] [place] [address] Paula Hernandez M.D. [address] [place] [address] documented as of this encounter Procedures Procedure Name Priority Date/Time Associated Diagnosis Comments NURSING IMAGE EXAM Routine 09/09/2023 12 :09 PM CDT documented in this encounter Results * Coccyx-Nursing Image Exam (09/09/2023 12:09 PM CDT) 09/09/2023 12:0 7 PM CDT Narrative [facility] [...] on filedocumented in this encounter Care Teams Qa Manager Relationship Specialty Start Date End Date Elsewhere, Pcp PCP - General Internal Medicine 08/13/23 documented as of this encounter
--- OUTSIDE RECORDS SUMMARY | 2023-09-16 08:57 | XMS_ITS | Encounter Summary ---
Author Organization [facility] Address [address] [place] [address] Care Team Providers Care Strategic Planning Analyst Name Role Phone Elsewhere, Pcp Primary Care Provider Unavailabl e Encounter Details Date Type Department Care Team (Late st Contact Info) Description 09/09/2023 Documentation Department of Urology in [place], [place] [address] [place] [address] Ko Victoria M.D. [address] [place] [address] Social History Tobacco Use Types Packs/Day Years Used Date Smoking Tobacco: Never Smokeless Tobacco: Never [facility] Utilities Answer Date Recorded In [...] your living situation today? I have a [facility] place to live 09/09/2023 Sex and Gender Information Value Date Recorded Sex Assigned at Not on file Gender Identity Not on file Sexual Orientation Not on file documented as of this encounter Progress Notes * Ko Victoria M.D. - 09/09/2023 5:11 AM CDT Patient phone call The patient's son called in as the patient is having recurrent gross hematuria and passage of bloodclots. He does not currently have a catheter in place, is passing blood clots per urethra since 11:00 p.m. last night. He is otherwise asymptomatic at this time. I gave them the option of continued hydration to see if he is able to clear the existing blood in his bladder, though if at any point he goes into clot retention or develop symptoms of anemia (weakness, dizziness, shortness of breath) he should present immediately to the ED for further evaluation. If the blood clots clear with continued hydration, then continued observation would be appropriate. documented in this encounter Plan of Treatment Upcoming Encounters Date Type Department Care Team (Late st Contact Info) Description 10/14/2023 1:00 PM CDT Procedure visit Department of Urology in [place], [place] [address] [place] [address] Paula Hernandez M.D. [address] [place] [address] documented as of this encounter Visit Diagnoses Not on filedocumented in this encounter Care Teams Strategic Planning Analyst Relationship Specialty Start Date End Date Elsewhere, Pcp PCP - General Internal Medicine 08/13/23 documented as of this encounter
--- OUTSIDE RECORDS SUMMARY | 2023-09-16 08:57 | XMS_ITS ---
Author Organization [facility] Address [address] [place] [address] Care Team Providers Care Vegetable Tester Name Role Phone Elsewhere, Pcp Primary Care [...] On Elapsed Days Session Dose Total Dose [id number] 04/28/2020 32 300 cGy 6,000 cGy Lifetime Dose Tracking * Chemical Lifetime Dose Automatic Entry Manual Entr y Radiation 20.4 mGy 20.4 mGy 0 mGy Fluoro Time 2.005 minutes 2.005 minutes 0 minutes DAP (uGy-m2) 479.6 uGy-m2 479.6 uGy-m2 0 uGy-m2
--- OUTSIDE RECORDS SUMMARY | 2023-09-16 08:57 | XMS_ITS | Referral Summary ---
Author Organization [facility] Address [address] [place] [address] Care Team Providers Care Staffing Rn Name Role Phone Elsewhere, Pcp Primary Care Provider Unavailabl e Source Comments Patient records contain information from all sites at [facility]. For routine questions regarding patient records, call [phone] during business hours, M-F 8:00 AM - 5:00 PM Central Time. Record requests for emergency care only can be directed to [phone] at any time.[facility] Encounters Date Type Department Care Team Description 09/15/2023 Clinical Communication [facility]ST [facility] [address] [place] [phone] Yasmine Loco 09/09/2023 7:24 AM CDT - 09/15/2023 5:28 PM CDT Hospital Encounter [facility], [facility], [facility], Sixth Floor [address] [place] [address] Gerri Merrill M.D., Ph.D. Sumit Holbrook M.D. Hematuria (Primary Dx) Discharge Disposition: Home or Self Care 09/09/2023 12:10 PM CDT Ancillary Procedure Department of Nursing 09/09/2023 Documentation Department of Urology in [place], [place] [address] [place] [address] Ko Victoria M.D. 09/06/2023 Orders Only Section of Hyperbaric Medicine in [place], [place] [address] [place] [address] Kira Ferraro APRN, C.N.P., M.S.N. 09/06/2023 Clinical Communication [facility] [address] [place] [phone] Yasmine Loco 08/30/2023 7:35 PM CDT - 09/05/2023 4:09 PM CDT Hospital Encounter [facility], [facility], First Floor [address] [place] [phone] Kirstin Hughes M.D. Thompson, R. Houston, M.D. Hematuria (Primary Dx); Tachycardia; Hematuria Gross Discharge Disposition: Home-Health Care Svc 09/01/2023 10:05 AM CDT Ancillary Procedure Department of Nursing 08/31/2023 12:25 PM CDT Ancillary Procedure Department of General Surgery 08/31/2023 12:34 PM CDT Anesthesia Event [facility] [address] [place] [phone] Joe Stoll M.D. Gran, Terry L, APRN, GAVIN 08/31/2023 12:36 PM CDT - 08/31/2023 2:31 PM CDT Surgery [facility] [address] [place] [phone] Mayur Alvarez M.D. CYSTOSCOPY EVACUATION CLOTS 08/30/2023 Documentation Department of Urology in [place], [place] [address] [place] [phone] Corin Ring M.D. 08/30/2023 Intake [facility] 08/26/2023 Orders Only Department of Urology in [place], [place] [address] [place] [phone] Paula Hernandez M.D. 08/13/2023 3:42 PM CDT - 08/26/2023 4:11 PM CDT Hospital Encounter [facility], [facility], Sixth Floor [address] [place] [phone] Darnell Garcia M.D. Chow, George K, M.D. Decline Functional Status [R53.81] (Primary Dx); Hematuria [R31.9] Discharge Disposition: Home or Self Care 08/23/2023 12:45 AM CDT Ancillary Procedure Department of Nursing 08/15/2023 8:30 AM CDT Anesthesia Event [facility] [address] [place] [address] Hayde Song M.D. 08/15/2023 7:55 AM CDT - 08/15/2023 11:23 AM CDT Surgery [facility] [address] [place] [address] Boubacar Brock M.D. Palliative EXPLORATORY LAPAROTOMY, CYSTOTOMY CLOSURE, RIGHT URETERAL STENT EXCHANGE 08/13/2023 4:35 PM CDT Ancillary Procedure Department of Radiology in [place], [place] [address] [place] [address] Carlos Alberto Henson M.D. 08/13/2023 Intake RST [...] minutes, take the second dose and call [phone] Active tamsulosin (FLOMAX) 0.4 mg 24 [...] Tobacco Cessation:Counseling Given: Not Answered [facility] Utilities Answer Date Recorded In the past 12 months has e [employer], oil, or water [employer] threatened to shut off services in your [...] your living situation today? I have a adia place to live 09/09/2023 Sex and Gender [...] Procedure visit Department of Urology in [place], [place] [address] [place] [address] Paula Hernandez M.D. [address] [place] [address] Medical Devices Implanted Type Area Underwriting Manager Device Identifier Shelf Expiration Date Model / Serial / Lot Clp Hrzn Ti 6 Clp Lg Orng - [id number] Implanted:Qt y: 1 on 08/15/2023 by Boubacar Brock M.D. at [facility] Hardware e.g. pins/screws /rods Abdomen Teleflex Profind [id number] 02/29/2028008290 / / [id number] Clp Hrzn Ti 6 Clp Lg Orng - [id number] Implanted:Qt y: 1 on 08/15/2023 by Boubacar Brock M.D. at [facility] Hardware e.g. pins/screws /rods Abdomen Teleflex Profind [id number] 02/29/2028 [id number] / / [id number] Clp Hrzn Ti 6 Clp Md Monty - [id number] Implanted:Qt y: 1 on 08/15/2023 by Boubacar Brock M.D. at [facility] Hardware e.g. pins/screws /rods Abdomen [employer] [id number] 03/13/2028 [id number] / / [id number] Clp Hrzn Ti 6 Clp Md Monty - [id number] Implanted:Qt y: 1 on 08/15/2023 by Boubacar Brock M.D. at [facility] Hardware e.g. pins/screws /rods Abdomen [employer] [id number] 03/21/2028 [id number] / / [id number] 3 Stnt Uret Inl 6fx24 - [id number] Implanted:Qt y: 1 on 08/15/2023 by Jakob De Paz M.D. at [facility] Ureteral Stent N/A: Ureter C.R.Bard [id number] 11/18/2027 [id number] / / [id number] Procedures Procedure Name Priority Date/Time Associated Diagnosis [...] LINE INSERTION Routine 08/15/2023 9:51 AM CDT VT US GUIDE VASC ACCESS Routine 08/15/2023 9:51 AM CDT VT ARTL CATH/CNULA MONITOR PERC Routine 08/15/2023 9:51 [...] CDT Paula Hernandez M.D. LAB BLOOD ADD-ON [facility] [address] [place] [address], [facility] [place][note 3] [address] [place] [address] * Heparin Anti-Xa Assay (09/14/2023 3:19 AM CDT) Only the most recent of16 resultswithin the time period is included. Heparin Anti-Xa, P 0.11 IU/mL 2023 4:07 AM CDT DTL Comment: [...] Sumit Holbrook M.D. [place] [address], [facility]TM[facility]waukee [facility] [place][note 3] [address] [place] [address] * IR Nephrostomy Tube Placement Left (09/13/2023 2:20 PM CDT) Anatomical Region Laterality Modality Genito Urinary, Vascular Int erventional RST LOS, Vascular Interventional ARZ LOS, Vascular Interventional FLA LOS Left X-Ray Angiography Impressions 09/13/2023 2:33 PM CDT Left 10 Martiniquais percutaneous nephrostomy tube placement. EP Narrative 09/13/2023 [...] tract was further dilated and a 10 Martiniquais nephrostomy tube was placed with loop formed [...] sedation timewas: 9 minutes. IMPRESSION: Left 10 Martiniquais percutaneous nephrostomy tube placement. EP Latisha Whitehead M.D. IMG IR PROCEDURE S * Gram Stain (09/13/2023 2:17 PM CDT) Gram Stain No organisms seen. White blood cells, Rare 09/13/2023 9:02 PM CDT DTL Fluid (Kidney, Left) 09/13/2023 2:17 PM CDT 09/13/2023 3:56 PM CDT Comment:Specimen Source Site : Fluid Latisha Whitehead M.D. LAB MICROBIOLOGY - GENERAL ORDERABLES [facility] [address] [place] [address], [facility] [address] [place] [address] * APTT (Activated Partial Thromboplastin Time) (09/13/2023 5:56 AM CDT) Only the most recent of18 resultswithin the time period is included. Activated Partial Thrombopl Time, P 35 25 - 37 sec 09/13/2023 7:14 AM CDT DTL Blood (Blood, Venous) 09/13/2023 5:56 AM CDT 09/13/2023 6:53 AM CDT Sumit Holbrook M.D. LAB BLOOD ADD-ON [facility] [place] [address] [place] [address], [facility] DTL [facility] [address] [place] [address] * (ABNORMAL) Basic Metabolic Panel (09/13/2023 5:56 AM CDT) Only the most recent of14 resultswithin the time period is included. Potassium, S 3.7 3.6 - 5.2 mmol/L [...] CDT Paula Hernandez M.D. LAB BLOOD ADD-ON [facility] [address] [place] [address], [place] DTL [facility] [address] [place] [address] * NM Kidney DMSA (09/12/2023 12:21 PM [...] with severely reduced radiotracer uptake asdescribed. Js WHITEHEAD NM PROCEDURES * Transfuse Red Blood Cells [...] urinary catheter.No internal vascularity. Js Yang M.D. [facility] US PROCEDURES * Coccyx-Nursing Image Exam (09/09/2023 [...] RAD IMAGI NG PROCEDURES Performing Organization Address City/[facility] Co de Phone Number IIFL NA * Osmolality, Urine (09/09/2023 11:28 AM CDT) Only the most recent of2 resultswithin the time period is included. Osmolality, U 380 150 - 1150 mOsm/kg 09/09/2023 12:19 PM CDT DTL Urine 09/09/2023 11:2 8 AM CDT 09/09/2023 11:58 AM CDT Jeffery Church M.D. LAB URINE ORDERA BLES Performing Organization Address [facility] Co de Phone Number [facility] [address] [place] [address], [facility] DTL [facility] [address] [place] [address] * (ABNORMAL) Dipstick, Urine (09/09/2023 11:28 AM [...] LAB URINE ORDERA BLES Performing Organization Address [facility] Co de Phone Number [facility] [address] [place] [address] * pH, Random, Urine (09/09/2023 11:28 AM CDT) Only the most recent of2 resultswithin the time period is included. pH, Random, U 6.3 4.5 - 8.0 09/09/2023 12:19 PM CDT DTL Urine 09/09/2023 11:2 8 AM CDT 09/09/2023 11:58 AM CDT Jeffery Church M.D. LAB URINE ORDERA BLES Performing Organization Address [facility] de Phone Number [facility] [address] [place] [address] * (ABNORMAL) Microscopic Manual (09/09/2023 11:28 AM [...] LAB URINE ORDERA BLES Performing Organization Address City/[facility] Co de Phone Number [facility] [address] [place] [address], [facility] DTL [facility] [address] [place] [address] * (ABNORMAL) Bacterial Culture, Aerobic + Susceptibility, [...] MICROBIOLOGY - GENERAL ORDERABLES Performing Organization Address [facility] de Phone Number [facility] [place] [address] [place] [address], [facility] [address] [address] * (ABNORMAL) Gram Stain, Urine (09/09/2023 11:28 AM CDT) Source Urine, Urine, Straight Catheter 09/09/2023 11:58 AM CDT DTL Gram Stain, U Positive(A) Negative 09/09/2023 12:16 PM CDT DTL Comment: Few Gram-negative bacilli ? Yeast Urine 09/09/2023 11:2 8 AM CDT 09/09/2023 11:58 AM CDT Jeffery Church M.D. LAB URINE ORDERA BLES Performing Organization Address [facility] de Phone Number [facility] [place] [address] [place] [address], [facility] [address] [address] * (ABNORMAL) Urinalysis, with Microscopic: Urine, Straight [...] 09/09/2023 1:02 PM CDT DTL Predicted Range [id number] mg/24 h 09/09/2023 1:02 PM CDT DTL Comment Micro done on <2.5 mL 09/09/2023 12:27 PM CDT DTL Urine (Urine, Straight Catheter) 09/09/2023 11:28 AM CDT 09/09/2023 11:58 AM CDT Jeffery Church M.D. LAB URINE ORDERA [facility] [place] [address] [place] [address], [facility] DTMilwaukee [facility] [place][note 3] [address] [place] [address] * US Kidneys Bilateral with Bladder (09/09/2023 [...] clot within the urinarybladder. Jeffery Church M.D. IMG US PROCEDURE S * Prothrombin Time (PT) [...] CDT Jeffery Church M.D. LAB BLOOD ADD-ON [facility] [address] [place] [address], [facility] [address] [place] [address] * (ABNORMAL) CBC with Differential, Blood (09/09/2023 8:04 AM CDT) Only the most recent of7 resultswithin the time period is included. Hemoglobin 8.9(L) 13.2 - 16.6 g/dL 09/09/2023 [...] CDT Jeffery Church M.D. LAB BLOOD ADD-ON [facility] [place] [address] [place] [address], [facility] STMA [facility] [address] [place] [address] [facility] [address] [place] [address] * Type and Screen (with Reflex Antibody ID) (09/09/2023 8:03 AM CDT) Only the most recent of6 resultswithin the time period is included. Pathologist [facility] ABORh O Pos Not applicable 09/09/2023 8:47 AM CDT STRM Antibody Screen Negative Negative 09/09/2023 9:02 AM CDT STRM Type & Screen Expiration 09/12/2023 23:59 09/09/2023 8:47 AM CDT STRM Testing Location Marcio DEFAULT 09/09/2023 8:10 AM CDT STRM Blood (Blood, Venous) 09/09/2023 8:03 AM CDT 09/09/2023 8:10 AM CDT Jeffery Church M.D. LAB BLOOD BANK T EST ORDERABLES Performing Organization Address City/[facility]/ZIP Co de Phone Number [facility] [place] [address] [place] [address], [facility] [address] [place] [address] * Potassium (09/05/2023 4:56 AM CDT) Only the most recent of2 resultswithin the time period is included. Potassium, S 3.6 3.6 - 5.2 mmol/L 09/05/2023 5:49 AM CDT DTL Blood (Blood, Venous) 09/05/2023 4:56 AM CDT 09/05/2023 5:22 AM CDT Roxy Rmoero M.D. LAB BLOOD ADD-ON [facility] [place] [address] [place] [address], [place] DTL [facility] [address] [place] [address] * FL Fluoro Less Than 1 Hour [...] M.D. IMG FLUOROSCOPY PROCEDURES Performing Organization Address City/[facility] Co de Phone Number 152 HOS LOS [...] performed, with 300 mL of contrast instilled. Tbaares catheter in urinary bladder. Partially visualized right [...] (ABNORMAL) Hemoglobin (08/31/2023 4:21 AM CDT) Pathologist [facility] Hemoglobin 7.8(L) 13.2 - 16.6 g/dL 08/31/2023 4:47 AM CDT DTL Blood (Blood, Venous) 08/31/2023 4:21 AM CDT 08/31/2023 4:35 AM CDT Kimi Vieira M.D., M.S. LAB BLOO D ADD-ON Performing Organization Address City/[facility]/ZIP Co de Phone Number [facility] [place] [address] DTL [facility] [address] [place] [address] * Lactate (08/30/2023 9:50 PM CDT) [facility] Lactate, P 1.8 0.5 - 2.2 mmol/L 08/30/2023 10:09 PM CDT [facility] Blood (Blood, Venous) 08/30/2023 9:50 PM CDT 08/30/2023 9:55 PM CDT Shannan Correa D.O., M.H.A. LAB BLOOD NON ADD-ON Performing Organization Address City/[facility]/ZIP Co de Phone Number [facility] [place] [address] STMA [facility] [address] [place] [address] * DX Chest AP or PA and [...] Coronary stenting.Degenerative changes thoracic spine. Shannan Correa DKimberly, M.H.A. IMG DIAGNOSTIC IMAGING PROCEDURES * ECG 12 Lead (08/30/2023 7:44 PM CDT) Only the most recent of3 resultswithin the time period is included. Ventricular Rate ECG/Min 145 BPM MUSE VT Interval 136 ms MUSE QRSD Interval 64 ms MUSE QT Interval 260 ms MUSE QTC Interval 403 ms MUSE P Elmo 44 degrees MUSE R Elmo 9 degrees MUSE T Wave Elmo -76 degrees MUSE 08/30/2023 7:44 PM CDT [...] Paula Hernandez M.D. IMG IR PROCEDURES * (ABNORMAL) Renal Function Panel [...] M.D. LAB BLOOD ADD-ON Performing Organization Address City/[facility]/ZIP Co de Phone Number [facility] [place] [address] [place] [address], [facility] [address] [place] [address] * Magnesium (08/26/2023 3:20 AM CDT) Only the most recent of6 resultswithin the time period is included. Magnesium, S 2.1 1.7 - 2.3 mg/dL 08/26/2023 4:04 AM CDT DTL Blood (Blood, Venous) 08/26/2023 3:20 AM CDT 08/26/2023 3:50 AM CDT Boubacar Brock M.D. LAB BLOOD ADD-ON Performing Organization Address City/[facility]/ZIP Co de Phone Number [facility] [place] [address] [place] [address], [facility] [address] [place] [address] * (ABNORMAL) Phosphorus Inorganic (08/23/2023 9:58 PM CDT) Only the most recent of2 resultswithin the time period is included. Phosphorus (Inorganic), S 2.1(L) 2.5 - 4.5 mg/dL 08/23/2023 10:45 PM CDT DTL Blood (Blood, Venous) 08/23/2023 9:58 PM CDT 08/23/2023 10:30 PM CDT Paula Hernandez M.D. LAB BLOOD ADD-ON [facility] [place] [address] [place] [address], [facility] [address] [place] [address] * Triglycerides (08/23/2023 3:42 AM CDT) Only [...] CDT Boubacar Brock M.D. LAB BLOOD ADD-ON [facility] [place] [address] [place] [address], [facility] 200 [place] [address] * Glucose, POCT (08/22/2023 11:38 PM CDT) Glucose, POCT, B 117 70 - 140 mg/dL 08/23/2023 1:06 AM CDT PCLX Site Capillary 08/23/2023 1:06 AM CDT PCLX Last Intake NPO 08/23/2023 1:06 AM CDT PCLX Blood 08/22/2023 11:3 8 PM CDT 08/23/2023 1:06 AM CDT Unknown Provider LAB POCT ORDERABLES- MANUAL POC [facility] [address] [place] [address], [place] PCLX [facility] - [place] [facility] [address] [address] * CT Abdomen Pelvis without IV Contrast [...] transport rates. All other fluids refer to [email or web address] for further interpretive information. This test has been modified from the patient relations director's instructions. Its performance characteristics were determined [...] M.D. LAB BODY FLUIDS AND STOOLS ORDERABLES [facility] [place] [address] [place] [address], [place] DTL [facility] [address] [place] [address] * IR PICC Line Placement (08/22/2023 8:35 AM CDT) Anatomical Region Laterality Modality Chest, Pelvis, Abdomen, Vasc ular Interventional RST LOS, Vascular Interventional ARZ LOS, Vascular Interventional FLA LOS N/A X-Ray Angiography Impressions 08/22/2023 9:05 AM CDT Placement of a right IJ vein single-lumen 4 Martiniquais tunneled PowerPICC ready for immediate use. NR [...] advanced into the IVC and a 4 Martiniquais dilator advanced over the wire and attached to a one-way stopcock. A suitable exit site in the right anterior chest was anesthetized and a small incision made. A 4 Martiniquais single-lumen PowerPICC was then tunneled from the [...] Wireadvanced into the IVC and a 4 Martiniquais dilator advanced over the wire andattached to a one-way stopcock. A suitable exit site in the right anteriorchest was anesthetized and a small incision made. A 4 Martiniquais single-lumen PowerPICC was then tunneled fromthe skin [...] of a right IJ vein single-lumen 4 Martiniquais tunneled PowerPICCready for immediate use. NR Kimi [...] CDT Latisha Whitehead M.D. LAB BLOOD ADD-ON [facility] [place] [address] [place] [address], [facility]TMilwaukee [facility] [place][note 3] [address] [place] [address] * Place peripherally inserted central catheter (PICC) [...] cm with transition in the right pelvis (/64). Pelvic surgical drain. Bladder catheter. Similar sacral [...] the atrophic right kidney. Lizette Harvey M.D. [facility] CT PROCEDUR ES [...] and management can be found on the [employer] site. Link [email or web address] Findings discussed with ??Tayler Greenwood, ?? ([id number]) on 08/17/2023 7:11 PM. Procedure Note Jj [...] thrombosis and management can be found on the[employer] site. [email or web address] Findings discussed with Tayler Greenwood MD ([id number]) on 08/17/2023 7:11 PM. IMPRESSION: 1. Aging, [...] Song M.D. LAB BLOOD NON ADD-O N [facility] [place] [address] [place] [address], [facility] [address] [place] [address] * Patient Status (08/15/2023 11:56 AM CDT) Only the most recent of2 resultswithin the time period is included. Temperature 36.2 37.0 deg C 08/15/2023 12:04 PM CDT STMA Blood 08/15/2023 11:5 6 AM CDT 08/15/2023 12:03 PM CDT Rae Gonzalez EARTH SCIENCE FACULTY MEMBER, IT APPLICATION ARCHITECT, DNAP LAB BLOO D NON ADD-ON Performing Organization Address City/[facility]/[place] [address] * Sodium, B (08/15/2023 11:56 AM CDT) Only the most recent of2 resultswithin the time period is included. Pathologist [facility] Sodium, B 135 135 - 145 mmol/L 08/15/2023 12:06 PM CDT STMA Blood (Blood, Arterial Line) 08/15/2023 11:56 AM CDT 08/15/2023 12:03 PM CDT Hayde Song M.D. LAB BLOOD NON ADD-O N [facility] [place] [address] [place] [address] * (ABNORMAL) Blood Gas with Coox, Arterial [...] Song M.D. LAB BLOOD NON ADD-O N [facility] [place] [address] [place] [address], [facility] [address] [place] [address] * Potassium, Blood (08/15/2023 11:56 AM CDT) Only the most recent of2 resultswithin the time period is included. Potassium, B 4.3 3.6 - 5.2 mmol/L 08/15/2023 12:07 PM CDT STMA Blood (Blood, Arterial Line) 08/15/2023 11:56 AM CDT 08/15/2023 12:03 PM CDT Hayde Song M.D. LAB BLOOD NON ADD-O N [facility] [place] [address] [place] [address], [facility] [address] [place] [address] * (ABNORMAL) Glucose, Whole Blood (08/15/2023 11:56 AM CDT) Only the most recent of2 resultswithin the time period is included. Glucose 144(H) 70 - 140 mg/dL 08/15/2023 12:06 PM CDT STMA Blood (Blood, Arterial Line) 08/15/2023 11:56 AM CDT 08/15/2023 12:03 PM CDT Hayde Song M.D. LAB BLOOD ADD-ON Performing Organization Address City/[facility]/ZIP Co de Phone Number [facility] [place] [address] [place], [place] [address] [place] [address] * (ABNORMAL) Calcium, Ionized (08/15/2023 11:56 AM CDT) Only the most recent of2 resultswithin the time period is included. Calcium, Ionized, B 4.53(L) 4.65 - 5.30 mg/dL 08/15/2023 12:07 PM CDT [facility] Blood (Blood, Arterial Line) 08/15/2023 11:56 AM CDT 08/15/2023 12:03 PM CDT Hayde Song M.D. LAB BLOOD NON ADD-O N [facility] [place] [address] [place], [place] [address] 200 [place] [address] * [place] ARTL CATH/CNULA MONITOR PERC, VT US GUIDE VASC ACCESS, LDA ANE ARTERIAL LINE INSERTION, MC ANE INVASIVE CATH WITH ULTRASOUND (08/15/2023 9:51 AM CDT) Narrative Rae Gonzalez APRN, IT APPLICATION ARCHITECT, DNAP - 08/15/2023 9:51 AM CDT Rae Gonzalez APRN, IT APPLICATION ARCHITECT, DNAP ? 08/15/2023 ??9:52 AM Invasive Catheter [...] 8:40 AM CDT Rae Gonzalez APRN, CRNA DNAJay ? 08/15/2023 ??9:48 AM Airway Date/Time: 08/15/2023 [...] ETT location: oral VL device: glide scope Cameron scope blade size: 4 Tube size: 7.5 [...] CDT Comment:Specimen Source Site : Blood Narrative [facility] [place] - 08/20/2023 6:02 AM CDT Received Bactec aerobic and Bactec anaerobic bottles Carlos Alberto Henson M.D. LAB MICROBIOLOGY - [facility] [place] [address], [facility] DTMilwaukee Regional [facility] [place][note 3] [address] [place] [address] * (ABNORMAL) Hepatic Function Panel (08/13/2023 5:27 [...] Carlos Alberto Henson M.D. LAB BLOOD ADD-ON [facility] [place] [address] [place] [address], [facility] [place]note 3[facility] [address] [place] [address] * Interpretation of Outside CT Abdomen and [...] Advance Directives For more information, please contact: [phone] * Full Code (Latest Code Status on File) Date Activated Date Inactivated Comments 08/30/2023 10:40 PM 09/05/2023 6:15 PM Question Answer Comments Full Code: Not Discussed Due to: Patient not available * Full Code Date Activated Date Inactivated Comments 08/13/2023 4:30 PM 08/26/2023 6:58 PM Question Answer Comments Full Code: Discussed Care Teams Staffing Rn Relationship Specialty Start Date End Date Elsewhere, Pcp PCP - General Internal Medicine 08/13/23
--- OUTSIDE RECORDS SUMMARY | 2023-09-16 08:57 | XMS_ITS | Encounter Summary ---
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 [address] [place] [address] [facility] Referral ID Status Reason Start Date Expiration Date V isits Requested Visits Authorized [id number] Authorized 09/15/2023 09/14/2024 1 1 * Outpatient (Routine) - Authorized Specialty Diagnoses / Procedures Referred By Leyla rosenthal Referred To Contact Radiology Diagnoses Hematuria Procedures IR Nephrostomy Tube Exchange Left Paula Hernandez M.D. [address] [place] [address] [facility] Referral ID Status Reason Start Date Expiration Date V isits Requested Visits Authorized [id number] Authorized 09/15/2023 09/14/2024 1 1 Reason for Visit * Reason Comments Blood in Urine Encounter Details Date Type Department Care Team (Latest Contact Info) Description 09/09/2023 7:24 AM CDT - 09/15/2023 5:28 PM CDT Hospital Encounter [facility], [facility], [facility], Sixth Floor [address] [place] [address] [phone] Gerri Merrill M.D., Ph.D. [address] [place] [address] [phone] Sumit Holbrook M.D. [address] [place] [address] [phone] Hematuria (Primary Dx) Discharge Disposition: Home or Self Care Social History Tobacco Use Types Packs/Day Years Used Date Smoking Tobacco: Never Smokeless Tobacco: Never [facility] FireIDities Answer Date Recorded In the past 12 months has [facility] electric, gas, oil, or water [employer] threatened to shut off services in your [...] have a [facility] place to live 09/09/2023 Sex and [...] Mass Index 25.99 09/11/2023 1:04 PM CDT documented in this encounter Discharge Summaries * Paula Hernandez M.D. - 09/15/2023 8:57 AM CDT DISCHARGE SUMMARY BRIEF OVERVIEW Hospital: [facility] Discharge Provider: Sumit Holbrook M.D. Primary Team: [facility] Urology Surgery - Chief Helga Rojas Primary Care Providers: Elsewhere, Pcp (General) No address on file Primary Care Provider Phone Number: None Primary Care Provider Fax Number: None Admission Date: 09/09/2023 Discharge Date: 09/15/23 PRINCIPAL DIAGNOSIS Hematuria SECONDARY DIAGNOSES Principal Problem: Hematuria Resolved Problems: * No resolved hospital problems. * DISCHARGE DISPOSITION Home or Self Care [1] ACTIVE ISSUES REQUIRING FOLLOW UP OUTPATIENT FOLLOW UP For appointment details refer to your Patient Appointment Guide. TEST RESULTS PENDING AT DISCHARGE Pending Labs Order Current Status Fungal Culture, Routine In process Bacterial Culture, Aerobic + Susceptibility Preliminary result Bacterial Culture, Anaerobic + Susceptibility Preliminary result DETAILS OF HOSPITAL STAY REASON FOR ADMISSION Hematuria HOSPITAL COURSE Mr. Vega is a pleasant 83 y.o. 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 He is status post clot obstruction complicated by intraperitoneal bladder repair on 08/15/2023, hospitalized until 08/25. Re- presented 08/30 with hematuria status post cystoscopy clot evacuation 08/30, discharge 09/04. Had planned outpatient follow up with hyperbaric O2, unfortunately re-presented 09/08 with recurrent gross hemturia, clots. He is on Plavix for history of cardiac stents last took 09/07, on Xarelto for history of DVT last took 09/07. Vascular medicine following for anticoagulation recommendations, recommended low, then excalation to moderate intensity heparin nomogram. After 5 days off of plavix/xarelto, patient underwent left nephrostomy tube placement on 09/12. Nephrostomy drained clear yellow urine. We then re-initiated the patient on his home Plavix, Xarelto on 09/14/23 and stopped the heparin drip. Urine remained clear from catheter and from nephrostomy tube. Urine cultures positive for Enterobacter with resistance to cephalosporins, on bactrim. Bactrim initiated 09/11 DMSA obtained 09/12/2023 to assess right-sided split function and assess appropriateness for removal of the right-sided ureteral stent. Demonstrated 3% function on the right, not surprising based on his imaging. After 3 days culture directed antibiotics the ureteral stent was removed at the bedside. Recommend 2 additional days of Bactrim at discharge Comorbidities: Metastatic prostate cancer on ADT, Radiation proctitis and recurrent GI bleeds. CAD status post stents on Plavix. DVT on Xarelto (also IVC filter in place) Follow up: -patient will contact hyperbaric oxygen to get back on their schedule for a visit and treatment -patient will need catheter exchange in 1 month, our team favors keeping the catheter in place for the time being -continue home anticoagulation with Plavix, Xarelto -2 days Bactrim at discharge -patient's rayshawn were removed prior to discharge -patient counseled on warning symptoms (signs of infection, fevers, chills, flank pain on the rightside in light of his right-sided ureteral stent being removed) -three-month nephrostomy tube exchange ordered -our contact information was again provided to the patient CONSULTS ORDERED DURING THIS ADMISSION IP CONSULT TO UROLOGY IP CONSULT TO INTERLACER WOUND CARE IP CONSULT TO HYPERBARIC MEDICINE IP CONSULT TO VASCULAR MEDICINE IP CONSULT TO DIETITIAN CONDITION AT DISCHARGE stable Discharge instructions were provided to the patient and caregiver(s). documented in this encounter Discharge Instructions * Discharge Instructions* Yasmine Loco - 09/09/2023 12:27 PM CDT You were discharged from the [facility] Urology Surgery - Chief A - Blue Service. Please identify this service name if you call with questions after hospitalization. * Attachments The following attachments cannot be sent through Care Everywhere. * Sulfamethoxazole/Trimethoprim (By mouth) ([place]) documented in this encounter Medications at Time of Discharge Medication Sig Dispensed Refills Start Date End Date amLODIPine (NORVASC) 10 mg tablet Take 10 mg by mouth daily. Takes in the afternoon, 1 to 2 pm 01/11/2020 cholecalciferol (Vitamin D3) 50 mcg (2,000 Unit) tablet Take 50 mcg by mouth daily. clopidogreL (PLAVIX) 75 mg tablet Take 75 mg by mouth every morning. 12/27/2019 coenzyme Q10 (CO Q-10) 200 mg [...] every morning. Do not crush or chew. metoprolol succinate (TOPROL-XL) 50 mg 24 hr tablet Take 50 mg by mouth at bedtime. 11/02/2019 mirabegron (MYRBETRIQ) 50 mg 24 hr tablet Take 50 mg by mouth daily. Takes in the afternoon, 1-2 pm nitroglycerin (NITROSTAT) 0.[address] 0.4 mg under the tongue every 5 (five) minutes as needed for chest pain. If chest pain continues after 5 minutes, take the second dose and call 911 11/02/2019 rosuvastatin (CRESTOR) 40 mg tablet Take 40 mg by mouth at bedtime. tamsulosin (FLOMAX) 0.4 mg 24 hr capsule TAKE 1 CAPSULE(0.4 MG) BY MOUTH DAILY 30 capsule 06/10/2020 trospium (SANCTURA) 20 mg tablet Take 1 tablet (20 mg total) by mouth 2 (two) times a day as needed (bladder spasms). please stop 24 hours prior to catheter removal 20 tablet 08/26/2023 Xarelto 10 mg tablet Take 10 mg by mouth every morning. sulfamethoxazole-trime thoprim (BACTRIM DS) 800-160 mg per tablet Take 1 tablet by mouth every 12 (twelve) hours for 2 days. 4 tablet 09/15/2023 09/17/2023 documented as of this encounter Progress Notes * Deanne Mike L.G.S.W., M.S.W. - 09/15/2023 12:27 PM CDT SUBJECTIVE Social Work was approached by patient's son with request to connect patient with social work or home health care after discharge. Social Work provided Outpatient Social Work phone number and suggested patient's son contact patient's primary care provider for outpatient referral if connect is not acc omplished before discharge today. Patient's receives support from [facility] in the home. Social Work also sent referral to [facility] and reached out to Service regarding referral to home health care. Addendum 1430: [facility] informed Social Work that they do not have capacity to provide home health care to patient. Social Work attempted to update patient and patient's son with this information. Theywere not in patient's hospital room. OBJECTIVE Patient's son has requested assistance with outpatient social work and home health care services. Referral sent: [facility] ASSESSMENT / PLAN ASSESSMENT Social Work is attempting to support patient prior to discharge this day. Full psychosocial has notbeen completed due to time urgency. Nurse Case Management assessments have been completed in the past. PLAN Social Work will continue to assist with discharge needs. Shorty Sun, M.S.W. 09/15/23 * Shannan Qiu RDN - 09/15/2023 10:03 AM CDT Clinical Nutrition: Reassessment Clinical Nutrition continues to follow patient for oral intake encouragement and oral nutrition supplement follow up/adjustment SUBJECTIVE Mr. Vega is a 83 y.o. 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 Pt has a history of prostate carcinoma with bone mets and radiation. On 08/14 had clot obstruction complicated by bladder repair. Plan was HBOT. Nutrition related medical/surgical history: CAD S/P stents, JUNITO-P Completed visit with patient today as part of face to face care. Current Nutrition (since admission): The patient states that his appetite is good. His mouth is dryso some foods on the menu are hard for him to eat. He feels he has been finding things he likes. Heknows he needs to focus on protein. He will have his daughter make him smoothies with protein at home. He notes he is dismissing today. OBJECTIVE Current nutrition orders: Dietary Orders (From admission, onward) Start Ordered 09/14/23 1411 Oral supplement -Supplement; Ensure Plus High Protein (vanilla); 1 each; Take at: Lunch Until discontinued Question Answer Comment Type: Supplement Supplement: Ensure Plus High Protein (vanilla) Size: 1 each Take at: Lunch 09/14/23 1410 09/13/23 1640 Adult Diet Regular Diet effective now Question: Diet texture: Answer: Regular 09/13/23 1639 Skin integrity: Unstageable pressure injury to scar tissue of coccyx. Pertinent Labs: reviewed. GI Function: Last BM Date: 09/11/23, [place] Stool Chart: Type 5: Soft blobs with clear-cut edges, Passing Flatus: Yes Integumentary/Wounds: Lines/Drains/Airways Wound Duration Wound 08/15/23 Incision Pannus Mid 31 days Wound 08/23/23 Pressure Injury Unstageable Coccyx Pre-Existing over Scar Tissue 23 days Medications: Scheduled Meds:clopidogreL, 75 mg, oral, QAM enzalutamide, 120 mg, oral, Daily metoprolol succinate, 50 mg, oral, Daily at bedtime rivaroxaban, 10 mg, oral, QAM rosuvastatin, 40 mg, oral, Daily at bedtime sennosides-docusate sodium, 1 tablet, oral, BID sodium chloride, 3 mL, intravenous, Q12H MICKEY sulfamethoxazole-trimethoprim, 1 tablet, oral, Q12H MICKEY trospium, 20 mg, oral, BID before breakfast and dinner Continuous Infusions:NaCl 0.9 % irrigation solution 3,000 mL, 3,000 mL NaCl 0.9 % irrigation solution 3,000 mL, 3,000 mL PRN Meds:. acetaminophen alum-mag hydroxide-simeth bacitracin benzocaine-menthol diazePAM naloxone ondansetron sodium chloride sodium chloride Anthropometrics: Height: 180.3 cm Admission Weight: 86.8 kg (09/09/2023) Current Weight: 84.5 kg [place] Body Weight (Calculated) : 75.3 kg BMI (Calculated): 26 kg/m?? Net IO Since Admission: -2,030.61 mL [09/15/23 1004] Weight history: Wt Readings from Last 12 Encounters: 09/11/23 84.5 kg 08/26/23 92.4 kg 04/23/20 82.2 kg 04/16/20 85.2 kg 04/14/20 84.4 kg 04/09/20 86 kg 04/07/20 86 kg 04/02/20 86.8 kg 04/01/20 88 kg 03/21/20 85.1 kg Weight Change History: 04/05/23-94.3 kg, 08/13/23-91.2 kg. The patient has lost 4.6 kg in the last month or 5%. Estimated Needs: Total Calorie Needs: 7788-8606 calories/day Method to Estimate Energy Needs: kcal/kg (22-25 kcal/kg) Weight Used for Equation Calculations: 86.8 kg Total Protein Needs: 85 - 102 grams/day (Method to Estimate Protein Needs (g/kg): 1 - 1.2 gm/kg) Weight Used to Calculate Protein Needs (Kg): 85 kg Nutrition Diagnosis: Increased nutrient needs related to need for healing as evidenced by pressure injury. Malnutrition Criteria: Non-severe (moderate) Malnutrition The patient does meet the ASPEN Criteria of malnutrition based on: Energy Intake: No Change Interpretation of Weight Loss: 5% 1 month Body Fat: Mild Loss Muscle Mass: Moderate Loss This is in the context of Acute Illness or Injury. ASSESSMENT / PLAN ASPEN Criteria Malnutrition Status: Non-severe (moderate) Malnutrition Nutrition Intervention: Interventions: Increase nutrient intake with small, frequent meals and/or snacks, Medical food supplement, Vitamin and mineral supplements. Recommendations: RDN to send oral supplement for protein. Therapeutic multivitamin with minerals daily to support skin integrity/wound healing. Zinc level was found to be <60 mcg/dL. Provide 220 milligrams zinc sulfate tablet BID for 2 weeks. Recheck levels in 2-4 weeks to ensure adequate repletion. Monitoring/Evaluation: Nutrition parameter to monitor: Meals/Supplement Intake, Weight Status, Nausea/Vomiting/Diarrhea, Pertinent Labs, Wound Healing Desired Outcome: Consume adequate nutrition orally Patient Goal(s): Consume 50-100% of 3 meals daily and Maintain weight Clinical Nutrition will continue to follow. For questions about patient's nutritional care please contact pager [phone] on weekdays 07:30-16:00 or [phone] on weekends/holidays ([facility]). * Clara Luu APRN, C.N.P., D.N.P. - 09/14/2023 10:04 AM CDT VASCULAR & INTERVENTIONAL RADIOLOGY PROGRESS NOTE SUBJECTIVE Mr. Kalen Vega is post procedure day 1 after left nephrostomy tube placement for urinary diversion with radiation cystitis in Interventional Radiology. Patient monitored closely overnight with no acute events reported. Afebrile and appears hemodynamically stable. No bleeding from nephrostomy tube. I have reviewed the current medication list. OBJECTIVE Current Weight: 84.5 kg VITAL SIGNS Blood Pressure: (!) 162/89, Heart Rate: 81, Pulse Rate: 70, Resp Rate: 16, Temperature: 36.5 ??C, SpO2: 94 % Drains Intake/Output Last 24 Hours: Date 09/13/23699 - 09/14/23 0659 09/14/23 07 - 09/15/23 0659 Shift 6104-0640 4599-5924 7667-5902 24 Hour Total 2115-8506 2351-5799 7463-7227 24 Hour Total INTAKE Other 30 60 160 250 Shift Total(mL/kg) 30(0.4) 60(0.7) 160(1.9) 250(3) OUTPUT Urine(mL/kg/hr) 650(1) 825(1.2) 925(1.4) 2400(1.2) Other 110 110 Shift Total(mL/kg) 650(7.7) 825(9.8) 1035(12.2) 2510(29.7) Weight (kg) 84.5 84.5 84.5 84.5 84.5 84.5 84.5 84.5 PHYSICAL EXAM Vitals reviewed. Constitutional General: He is not in acute distress. Pulmonary Effort: Pulmonary effort is normal. Musculoskeletal Comments: Left flank puncture site with dressing and clean dry and intact. Nephrostomy tube appearspatent and secure with clear yellow urine. No bleeding Neurological Mental Status: He is alert. DIAGNOSTICS Lab Results Component Value Date/Time HGB 10.1 (L) 09/14/2023 03:19 AM HGB 8.8 (L) 08/15/2023 11:56 AM HCT 31.0 (L) 09/14/2023 03:19 AM HCT 29.4 (L) 12/01/2022 04:45 PM PLT 387 (H) 09/14/2023 03:19 AM PLT 198 12/01/2022 04:45 PM INR 1.1 09/09/2023 08:04 AM APTT 35 09/13/2023 05:56 AM , Lab Results Component Value Date/Time ALBUMIN 2.3 (L) 08/26/2023 03:20 AM ALBUMIN 4.0 01/28/2022 10:33 AM ALKPHOS 100 08/22/2023 02:40 AM ALKPHOS 57 01/28/2022 10:33 AM ALT 14 08/22/2023 02:40 AM AST 25 08/22/2023 02:40 AM AST 18 01/28/2022 10:33 AM BILIDIR 0.3 08/13/2023 05:27 PM BILIDIR 0.3 01/28/2022 10:33 AM BILITOT 0.4 08/22/2023 02:40 AM BILITOT 0.8 01/28/2022 10:33 AM BUN 14 09/13/2023 05:56 AM BUN 12 09/09/2023 08:04 AM CREATININE 1.24 09/13/2023 05:56 AM CREATININE 1.27 09/09/2023 08:04 AM CREATPOC 1.40 (H) 02/29/2020 02:04 PM EGFRNONBLKAA 53 (L) 11/13/2020 09:21 AM EGFRNONBLKAA 49 (L) 02/29/2020 02:04 PM ASSESSMENT / PLAN #1 Hematuria 83 y.o. male with past medical history significant for metastatic prostate cancer status post radiation presenting with hematuria secondary to radiation cystitis. Patient is now post procedure day 1 after left nephrostomy tube placement in Interventional Radiology. No immediate or postprocedure comp lications noted. Patient appears comfortable in chair with no pain or concerns. Urine is clear withno bleeding noted. Routine exchanges per urology team. Please see tube recommendations below. VIR to sign off. GUIDELINES FOR PERCUTANEOUS NEPHROSTOMY TUBE MANAGEMENT Drainage: Recommended drainage is to a gravity bag. Drain Maintenance: Do not recommend routine flushing. If there are blood clots after placement or output decreases, may flush with 5- 10cc of sterile saline to maintain patency. Routine nephrostomy tube exchange in 10-12 weeks. Showers or modified sponge baths only, do not submerge in water. If significant decrease in output and/or increased drainage around the skin site are noted, please contact primary service to consider drain check. Clear extension tubing and bag are disposable and are recommended to be replaced every week. A prescription for these supplies and dressings can be provided by the Urology service. Bleeding: Urine may be rylan in color for up to 72 hours post-procedure. If there is NEW or increasing blood draining from the catheter, please contact Vascular and Interventional Radiology [facility] ([phone]). Anticoagulation: A percutaneous nephrostomy tube is considered a high bleeding risk procedure by Society of Interventional Radiology (SIR) guidelines. Post-procedure, recommend holding heparin for 6 hours, enoxaparin (Lovenox) for 12 hours, and all other therapeutic anticoagulation for at least 24 hours, and re-initiating only if clinically indicated. Thank you for the opportunity to participate in this patient's care. Please feel free to page the [facility] Inpatient Consult Service at [phone] or the on-call resident at [phone] after 5 PM and on weekends with additional questions. * Paula Hernandez M.D. - 09/14/2023 5:28 AM CDT UROLOGY CHIEF SERVICE PROGRESS NOTE SUBJECTIVE Kalen Guerrier seen by the team during morning rounds. No acute events overnight. Patient is afebrile and hemodynamically stable. Endorses feeling well this morning. Nephrostomy tube placed 09/12 with clear yellow output, 1.1 L over the last 24 hours from the neph tube, 300 from his Jon catheter. Both are clear yellow. Has been off CBI for 2 days OBJECTIVE AVSS Physical Exam: General: No acute distress Neuro: Alert and oriented, no gross deficits. Cardiovascular: Regular rate. Pulmonary: Normal respiratory effort. Abdomen: Non-tender, non-distended. rayshawn in place. Incision C/D/I : Jon catheter in place draining clear yellow urine . Neph tube clear yellow urine. I/O ([id number]): 1.9 L, 1.1 L from the neph tube Labs: Hemoglobin 10.1 from 9.3 Cultures: 09/08 Enterobacter urine culture ASSESSMENT AND PLAN: Mr. Vega is a pleasant 83 y.o. 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 He is status post clot obstruction complicated by intraperitoneal bladder repair on 08/15/2023, hospitalized until 08/25. Re- presented 08/30 with hematuria status post cystoscopy clot evacuation 08/30, discharge 09/04. Had planned outpatient follow up with hyperbaric O2, unfortunately re-presented 09/08 with recurrent gross hemturia, clots. He is on Plavix for history of cardiac stents last took 09/07, on Xarelto for history of DVT last took 09/07. Vascular medicine following for anticoagulation recommendations, currently on low intensity heparinnomogram. We will plan to initiate moderate intensity after nephrostomy tube today. We have been holding Xarelto, Plavix in anticipation of left-sided nephrostomy tube placement, which was done 09/12. Nephrostomy tube draining clear yellow urine. Patient was restarted on moderate intensity heparin drip 6 hours postprocedurally Urine cultures positive for Enterobacter with resistance to cephalosporins, on bactrim. Bactrim initiated 09/11 Hematuria has improved this hospitalization, urine has been clear yellow for the last 24 hours while on low intensity heparin drip. DMSA obtained 09/12/2023 to assess right-sided split function and assess appropriateness for removal of the right-sided ureteral stent. Demonstrated 3% function on the right, not surprising based on his imaging. Ideally we would get the stent out this hospitalization, I would like him on a few more days of culture directed antibiotics as he has only been on Bactrim for the Enterobacter for 24 hours. Comorbidities: Metastatic prostate cancer on ADT, Radiation proctitis and recurrent GI bleeds. CAD status post stents on Plavix. DVT on Xarelto (also IVC filter in place) Plan: - follow up hemoglobin recheck -nephrostomy tube today -likely transition to p.o. antiplatelet, anticoagulation today -hopeful discharge for 09/14 versus 09/15 if urine remains clear on p.o. antiplatelet, anticoagulation -stent removal prior to hospital discharge, after a day or 2 more of Bactrim Hospital Summary: Diet: regular Activity: ad kong DVT PPX: low intensity heparin drip GI PPX: none Bowel Regimen: senna, miralax IVF: none Abx/Microbiology: bactrim started 09/11 Pain Control: scheduled trospium Home Meds Resumed: enzalutamide, metoprolol, Crestor Held Home Meds: Xarelto, Plavix Consults: Vascular Medicine Paula Hernandez M.D. 09/14/2023 Please page the Urology Chief Service with questions or concerns. Pager during business hours: [phone] Pager after hours: [phone] * Paula Hernandez M.D. - 09/13/2023 6:05 AM CDT UROLOGY CHIEF SERVICE PROGRESS NOTE SUBJECTIVE Kalen Guerrier seen by the team during morning rounds. No acute events overnight. Patient is afebrile and hemodynamically stable. Endorses feeling well this morning. Tolerating a general diet without nausea or vomiting. Passing gas, having bowel movements. Ambulating. Adequate urine output. CBI has been off for over 24 hours at this point. Urine remains clear OBJECTIVE AVSS Physical Exam: General: No acute distress Neuro: Alert and oriented, no gross deficits. Cardiovascular: Regular rate. Pulmonary: Normal respiratory effort. Abdomen: Non-tender, non-distended. rayshawn in place, incision C/D/I : Jon catheter in place draining clear yellow urine I/O ([id number]): Adequate urine output 2.7 L/248 1 L p.o. Labs: Labs pending Cultures: 09/08 Enterobacter urine culture ASSESSMENT AND PLAN: Mr. Vega is a pleasant 83 y.o. 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 He is status post clot obstruction complicated by intraperitoneal bladder repair on 08/15/2023, hospitalized until 08/25. Re- presented 08/30 with hematuria status post cystoscopy clot evacuation 08/30, discharge 09/04. Had planned outpatient follow up with hyperbaric O2, unfortunately re-presented 09/08 with recurrent gross hemturia, clots. He is on Plavix for history of cardiac stents last took 09/07, on Xarelto for history of DVT last took 09/07. Vascular medicine following for anticoagulation recommendations, currently on low intensity heparinnomogram. We will plan to initiate moderate intensity after nephrostomy tube today. We have been holding Xarelto, Plavix in anticipation of left-sided nephrostomy tube placement which will be done today, 09/12. Appreciate IR seeing the patient Urine cultures positive for Enterobacter with resistance to cephalosporins, on bactrim. Bactrim initiated 09/11 Hematuria has improved this hospitalization, urine has been clear yellow for the last 24 hours while on low intensity heparin drip. DMSA obtained 09/12/2023 to assess right-sided split function and assess appropriateness for removal of the right-sided ureteral stent. Demonstrated 3% function on the right, not surprising based on his imaging. Ideally we would get the stent out this hospitalization, I would like him on a few more days of culture directed antibiotics as he has only been on Bactrim for the Enterobacter for 24 hours. Comorbidities: Metastatic prostate cancer on ADT, Radiation proctitis and recurrent GI bleeds. CAD status post stents on Plavix. DVT on Xarelto (also IVC filter in place) Plan: - follow up hemoglobin recheck -nephrostomy tube today -we will initiate moderate heparin drip this evening -transition to p.o. antiplatelet, anticoagulation 24 hours after neph tube placement -anticipate another 2 or so days in the hospital -stent removal prior to hospital discharge, after a day or 2 more of Bactrim Hospital Summary: Diet: regular Activity: ad kong DVT PPX: low intensity heparin drip GI PPX: none Bowel Regimen: senna, miralax IVF: none Abx/Microbiology: bactrim started 09/11 Pain Control: scheduled trospium Home Meds Resumed: enzalutamide, metoprolol, Crestor Held Home Meds: Xarelto, Plavix Consults: Vascular Medicine Paula Hernandez M.D. 09/13/2023 Please page the Urology Chief Service with questions or concerns. Pager during business hours: [phone] Pager after hours: [phone] * Raya Meza, DJonah, R.Ph., [facility] - 09/12/2023 7:44 AM CDT Images from the original note were not included. Pharmacist Progress Note Reason for admission: Recent hospitalization 08/13/23-08/26/23 due to hematuria, clot obstruction, intraperitoneal bladder perforation (was on both Plavix and Eliquis), s/p open exploratory laparotomy with cystotomy closure and right-sided ureteral stent exchange on 08/15/23, post-op complicated by ileus requiring NG tube placement, DVT of unclear chronicity managed with heparin drip transitioned toXarelto. Then rehospitalized 08/30/23-09/05/23 due to worsened hematuria, clot obstruction, s/p clot removal/CBI, subsequently restarted on Xarelto and Plavix. Urine was clear until 09/07 when he developed gross hematuria, smith in color. began to pass large clots, which led to this admission. 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 Hx of cardiac stents on Plavix. Hx of DVT on Xarelto. OBJECTIVE Scheduled home medications: Held: amlodipine, vitamin D, clopidogrel, coenzyme Q10, Vitron-C, mirabegron, tamsulosin, rivaroxaban Changed: trospium (as needed > scheduled) New: Senokot-S, Bactrim VTE prophylaxis: heparin drip, low intensity ID: Bactrim (UTI, 09/11-09/15) Urine culture 09/08 grew Enterobacter cloacae complex (susceptible to Bactrim) Heme: Rivaroxaban, clopidogrel on hold currently, on heparin drip per Vascular med recommendation while having active bleeding and need for procedure Heparin Indication: Deep Vein Thrombosis (DVT) Goal aPTT range: 45 - 60 seconds Recent direct oral Factor Xa inhibitor use: Yes Last Factor Xa dose date/time: 09/08/2023 in am aPTT Results (Past Day) 09/12/2023 3:42 AM aPTT 49 Current heparin rate: 11 units/kg/hr ASSESSMENT / PLAN aPTT is at goal. Dose will remain the same. Next aPTT level: 09/12 with am lab. Medications and laboratory data have been reviewed. Pharmacy will continue to follow for medicationuse optimization Pharm. YanciDJonah, R.Ph., [facility] Addendum: Heparin will be stopped on 09/13/23 at 0400 for procedure per Vascular Medicine. Will order anti-Xa and change aPTT lab to assess correlation for tomorrow, at 0400 Consider heparin per Anti-Xa monitoring only once heparin infusion resumed if anti-Xa and aPTT labscorrelate Electronically signed by: Benjamin West Pharm.D., R.Ph. 09/12/23 7:40 PM CDT * Paula Hernandez M.D. - 09/12/2023 5:13 AM CDT Images from the original note were not included. UROLOGY CHIEF SERVICE PROGRESS NOTE SUBJECTIVE Kalen Guerrier seen by the team during morning rounds. No acute events overnight. Patient is afebrile and hemodynamically stable. Endorses feeling well this morning. Tolerating a general diet without nausea or vomiting. Passing gas, having bowel movements. Ambulating. Adequate urine output. CBI stopped yesterday evening, has remained clear yellow OBJECTIVE AVSS Physical Exam: General: No acute distress Neuro: Alert and oriented, no gross deficits. Cardiovascular: Regular rate. Pulmonary: Normal respiratory effort. Abdomen: Non-tender, non-distended. rayshawn in place, incision C/D/I : Jon catheter in place draining clear yellow urine I/O ([id number]): CBI paused for obs Labs: Hb: Hemoglobin Date Value Ref Range Status 09/12/2023 7.2 (L) 13.2 - 16.6 g/dL Final 09/11/2023 8.2 (L) 13.2 - 16.6 g/dL Final 09/10/2023 8.1 (L) 13.2 - 16.6 g/dL Final WBC: Leukocytes Date Value Ref Range Status 09/12/2023 8.1 3.4 - 9.6 x10(9)/L Final 09/11/2023 11.1 (H) 3.4 - 9.6 x10(9)/L Final 09/10/2023 13.1 (H) 3.4 - 9.6 x10(9)/L Final Cr: Creatinine Date Value Ref Range Status 09/11/2023 1.15 0.74 - 1.35 mg/dL Final 09/09/2023 1.27 0.74 - 1.35 mg/dL Final 09/05/2023 1.03 0.74 - 1.35 mg/dL Final Cultures: Microbiology Results (last 10 days) Procedure Component Value - Date/Time Bacterial Culture, Aerobic + Susceptibility, Urine [[id number]] (Abnormal) (Susceptibility) Collected: 09/09/23 1128 Lab Status: Final result Specimen: Urine, Straight Catheter Updated: 09/11/23 1518 Urine Culture ENTEROBACTER CLOACAE COMPLEX >100,000 cfu/mL Susceptibility Enterobacter cloacae complex SUSCEPTIBILITY, LAYO (MCG/ML) Amikacin <=4 mcg/mL Susceptible Ampicillin Resistant Ampicillin + Sulbactam Resistant Aztreonam >16 mcg/mL Resistant Cefazolin Resistant Cefepime <=2 mcg/mL Susceptible Ceftazidime >16 mcg/mL Resistant Ceftriaxone 32 mcg/mL Resistant Ciprofloxacin <=0.25 mcg/mL Susceptible Ertapenem 0.5 mcg/mL Susceptible Gentamicin <=1 mcg/mL Susceptible Levofloxacin <=0.5 mcg/mL Susceptible Meropenem <=0.12 mcg/mL Susceptible Nitrofurantoin <=32 mcg/mL Susceptible Piperacillin + Tazobactam 16/4 mcg/mL Susceptible-dose dependent Tobramycin <=1 mcg/mL Susceptible Trimethoprim + Sulfamethoxazole <=.5/9.5 mcg/mL Susceptible Bacterial Culture, Aerobic + Susceptibility, Urine [[id number]] Collected: 09/03/23 1050 Lab Status: Final result Specimen: Urine, Indwelling Catheter Updated: 09/04/23 0866 Urine Culture No growth after 1 day of incubation. ASSESSMENT AND PLAN: Mr. Vega is a pleasant 83 y.o. 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 He is status post clot obstruction complicated by intraperitoneal bladder repair on 08/15/2023, hospitalized until 08/25. Re- presented 08/30 with hematuria status post cystoscopy clot evacuation 08/30, discharge 09/04. Had planned outpatient follow up with hyperbaric O2, unfortunately re-presented 09/08 with recurrent gross hemturia, clots. He is on Plavix for history of cardiac stents last took 09/07, on Eliquis for history of DVT last took 09/07. Vascular medicine following for anticoagulation recommendations, currently on low intensity heparinnomogram. Pending his hematuria, we will titrate this to moderate intensity if appropriate. Urine cultures positive for Enterobacter with resistance to cephalosporins, on bactrim Ultimately, our goal is to stabilize his hematuria so he is able to complete HBOT in the outpatientsetting. This may require right ureteral stent removal and/or left nephrostomy tube placement. In the interim, we will continue CBI while he is off anticoagulation in the event he requires left nephrostomy tube placement. Today we will obtain a DSMA renal scan to determine if it is appropriateto remove his right ureteral stent. Comorbidities: Metastatic prostate cancer on ADT, Radiation proctitis and recurrent GI bleeds. CAD status post stents on Plavix. DVT on Xarelto (also IVC filter in place) Plan: - DMSA renal scan today -2u pRBC for Hgb 7.2 today - Wean CBI as able, hand irrigations to q.6 - Daily CBC - Low intensity heparin nomogram given history of DVT - Hold Plavix and Eliquis -Bactrim Hospital Summary: Diet: regular Activity: ad kong DVT PPX: low intensity heparin drip GI PPX: none Bowel Regimen: senna, miralax IVF: none Abx/Microbiology: bactrim started 09/11 Pain Control: scheduled trospium Home Meds Resumed: enzalutamide, metoprolol, Crestor Held Home Meds: Xarelto, Plavix Consults: Vascular Medicine Paula Hernandez M.D. 09/12/2023 Please page the Urology Chief Service with questions or concerns. Pager during business hours: [phone] Pager after hours: [phone] * Js Yang M.D. - 09/11/2023 9:18 AM CDT UROLOGY CHIEF SERVICE PROGRESS NOTE Mr. Vega is an 83-year-old male with a history of advanced prostate cancer s/p radiation, bone metastases on Zantac tea, right hydronephrosis and atrophic kidney managed with indwelling ureteral stent, long-term anticoagulation on Plavix and Eliquis, hemorrhagic cystitis s/p hematuria, clot obstruction, intraperitoneal bladder perforation s/p exploratory laparotomy and cystotomy closure and right-sided stent exchange on 08/15/2023. He re-presented on 08/29 with hematuria and clot obstruction requiring OR for cystoscopy and clot evacuation 08/30. His catheter was removed on 09/02 and he was discharged home on 09/04 with the plansfor outpatient hyperbaric oxygen therapy. He developed recurrent hematuria on 09/07 and was readmitted on 09/08 for gross hematuria management. No acute events overnight. Afebrile and hemodynamically stable. Tolerating oral diet without nauseaor vomiting. Pain is well controlled on oral medications. Jon catheter draining light smith urine on moderate to fast CBI. OBJECTIVE Vitals: Temperature: [36.6 ??C-36.7 ??C] 36.6 ??C Resp Rate: [15] 15 Blood Pressure: (132-168)/(64-73) 154/64 SpO2: [98 %-100 %] 99 % Pulse Rate: [79-86] 86 Physical Exam: General: Lying comfortably in bed. No acute distress. Neuro: Alert and oriented x3. Converses appropriately. No apparent focal deficit. Pulm: Non-labored breathing on room air. Abdomen: Soft, nondistended, nontender to palpation. Genitourinary: Jon catheter in place draining light smith urine on moderate CBI Extremities: Warm and well-perfused. Labs Urine culture: Enterobacter, susceptibilities pending Hb: 8.2 (8.1) WBC: 11.1 (13.1) Cr: (1.27) ASSESSMENT / PLAN Patient Active Problem List Diagnosis Primary Malignant Neoplasm Of Prostate (HCC) Lymphedema Hematuria Hematuria Gross Mr. Vega is a pleasant 83 y.o. 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 He is status post clot obstruction complicated by intraperitoneal bladder repair on 08/15/2023, hospitalized until 08/25. Re- presented 08/30 with hematuria status post cystoscopy clot evacuation 08/30, discharge 09/04. Had been planning to meet with hyperbaric oxygen outpatient today. He is on Plavix for history of cardiac stents last took 09/07, on Eliquis for history of DVT last took 09/07. Vascular medicine following for anticoagulation recommendations, currently on low intensity heparinnomogram. Pending his hematuria, we will titrate this to moderate intensity if appropriate. He underwent a bladder ultrasound yesterday evening which demonstrated small to moderate amount of dependent debris. No large clots appreciated. Urine cultures positive for Enterobacter, susceptibilities pending. Currently on ceftriaxone. Ultimately, our goal is to stabilize his hematuria so he is able to complete HBOT in the outpatientsetting. This may require right ureteral stent removal and/or left nephrostomy tube placement. In the interim, we will continue CBI while he is off anticoagulation in the event he requires left nephrostomy tube placement. Tomorrow, we will obtain a DSMA renal scan to determine if it is appropriate to remove his right ureteral stent. Plan: - DMSA renal scan tomorrow - Wean CBI as able, reduce hand irrigations to q.6 - Daily CBC, transfusion threshold >8 - Ceftriaxone until urine culture susceptibilities return, anticipate 7 day total antibiotic therapy - Low intensity heparin nomogram given history of DVT - Hold Plavix and Eliquis Js Yang M.D. 09/11/2023 9:50 AM CDT Please page chief Urology Service [place] [phone] during business hours orat [phone] after hours. * Portillo Crespo Pharm.D., R.Ph., BCPS - 09/11/2023 2:30 AM CDT Images from the original note were not included. Pharmacy Consult -Heparin Infusion with aPTT Management Assessment Nomogram Intensity: Low Indication: Deep Vein Thrombosis (DVT) Recent direct oral Factor Xa inhibitor use: Yes; Rivaroxaban Last dose: on 09/07 AM Baseline aPTT(sec): 31 Goal aPTT range: 45 - 60 seconds aPTT Results (Past Day) 09/10/2023 09/10/2023 09/10/2023 11:42 PM 6:09 PM 10:11 AM aPTT 47 46 63 Plan: Heparin aPTT level came back within the therapeutic goal at 47 seconds. Since last two consecutive level checks were at goal, will push next level check with AM labs. Next aPTT level order time (date & time): 09/11 w/AM labs Pharmacy will manage the heparin infusion based on the Heparin IV Monitoring by aPTT guidance document in [employer]. Alejandro Crespo Pharm.D., R.Ph., BCPS * Favio Carmichael Pharm.DJonah, R.Ph., BCPS - 09/10/2023 11:27 AM CDT Images from the original note were not included. Pharmacy Consult -Heparin Infusion with aPTT Management Assessment Nomogram Intensity: Low Indication: Deep Vein Thrombosis (DVT) Recent direct oral Factor Xa inhibitor use: Yes; Rivaroxaban Last dose: on 09/07 AM Baseline aPTT(sec): 31 Goal aPTT range: 45 - 60 seconds aPTT Results (Past Day) 09/10/2023 09/10/2023 09/09/2023 10:11 AM 12:06 AM 5:08 PM aPTT 63 57 31 Plan: Heparin aPTT level came back slightly above the therapeutic goal at 63 seconds. Will reduce infusion rate to 11 units/kg/hr. Next aPTT level order time (date & time): 09/09 at 1800 Pharmacy will manage the heparin infusion based on the Heparin IV Monitoring by aPTT guidance document in [employer]. Favio Carmichael PharmPerla., R.Ph., BCPS ADDENDUM - Heparin Current heparin rate: 11 units/kg/hr No loading dose will be administered aPTT is at goal. Dose will remain the same. Next aPTT level: 09/11/23 at 0000 Mayur Collier PharmD, LUCERO, BCPS, [facility] Pager [phone] * Js Yang M.D. - 09/10/2023 9:50 AM CDT UROLOGY CHIEF SERVICE PROGRESS NOTE Mr. Vega is an 83-year-old male with a history of advanced prostate cancer s/p radiation, bone metastases on Zantac tea, right hydronephrosis and atrophic kidney managed with indwelling ureteral stent, long-term anticoagulation on Plavix and Eliquis, hemorrhagic cystitis s/p hematuria, clot obstruction, intraperitoneal bladder perforation s/p exploratory laparotomy and cystotomy closure and right-sided stent exchange on 08/15/2023. He re-presented on 08/29 with hematuria and clot obstruction requiring OR for cystoscopy and clot evacuation 08/30. His catheter was removed on 09/02 and he was discharged home on 09/04 with the plansfor outpatient hyperbaric oxygen therapy. He developed recurrent hematuria on 09/07 and was readmitted on 09/08 for gross hematuria management. No acute events overnight. Afebrile and hemodynamically stable. Tolerating oral diet without nauseaor vomiting. Pain is well controlled on oral medications. Jon catheter draining light pink urine on moderate to fast CBI. OBJECTIVE Vitals: Temperature: [36.4 ??C-37.1 ??C] 36.7 ??C Resp Rate: [15-16] 16 Blood Pressure: (137-156)/(67-87) 150/69 SpO2: [92 %-99 %] 98 % Pulse Rate: [72-107] 74 Physical Exam: General: Lying comfortably in bed. No acute distress. Neuro: Alert and oriented x3. Converses appropriately. No apparent focal deficit. Pulm: Non-labored breathing on room air. Abdomen: Soft, nondistended, nontender to palpation. Genitourinary: Jon catheter in place draining clear pink urine on moderate to fast CBI Extremities: Warm and well-perfused. Labs Urine culture: Gram-negative bacillus, prior history of nunez susceptible E coli Hb: 8.1 (8.9) WBC: 13.1 (14.5) Cr: (1.27) ASSESSMENT / PLAN Patient Active Problem List Diagnosis Primary Malignant Neoplasm Of Prostate (HCC) Lymphedema Hematuria Hematuria Gross Mr. Vega is a pleasant 83 y.o. 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 He is status post clot obstruction complicated by intraperitoneal bladder repair on 08/15/2023, hospitalized until 08/25. Re- presented 08/30 with hematuria status post cystoscopy clot evacuation 08/30, discharge 09/04. Had been planning to meet with hyperbaric oxygen outpatient today. He is on Plavix for history of cardiac stents last took 09/07, on Eliquis for history of DVT last took 09/07. Vascular medicine following for anticoagulation recommendations, currently on low intensity heparinnomogram. Pending his hematuria, we will titrate this to moderate intensity if appropriate. For now, his hematuria appears to be clearing nicely on CBI. Urine cultures positive for Gram-negative bacillus, we will start empiric ceftriaxone until culturesusceptibilities return. Plan: - Bladder ultrasound today - Daily CBC, transfusion threshold >8 - start ceftriaxone - low intensity heparin nomogram given history of DVT - hold Plavix and Eliquis - wean CBI as able Js Yang M.D. 09/10/2023 9:50 AM CDT Please page chief Urology Service [place] [phone] during business hours orat [phone] after hours. * Quin Harrell Pharm.D., R.Ph., BCPS - 09/09/2023 5:29 PM CDT Images from the original note were not included. Pharmacy Consult -Heparin Infusion with aPTT Management Assessment Nomogram Intensity: Low Indication: Deep Vein Thrombosis (DVT) Recent direct oral Factor Xa inhibitor use: Yes; Rivaroxaban Last dose: on 09/07 AM Baseline aPTT(sec): 31 Goal aPTT range: 45 - 60 seconds aPTT Results (Past Day) 09/10/2023 09/09/2023 12:06 AM 5:08 PM aPTT 57 31 Plan: Heparin aPTT level came back within therapeutic goal at 57 seconds. Continue current dose at 12 units/kg/hr. Next aPTT level order time (date & time): 09/09 at 0630 Pharmacy will manage the heparin infusion based on the Heparin IV Monitoring by aPTT guidance document in [employer]. Quin Harrell Pharm.D., R.Ph., BCPS * Jazmine Benítez R.N., C.W.C.N. - 09/09/2023 1:16 PM CDT [facility] Wound RN consulted to assess Kalen Vega skin alterations. Wound assessment, pain, and Wilberto score noted in the flowsheet. Images taken by staff at the bedside and are available in QREADS. History: Per provider note, Mr. Vega is a pleasant 83 y.o. male for whom we are consulted for the management of the above. He was well known to our service and was just discharged on 09/05/23. Hehas urologic history advanced prostate cancer (status post radiation) with bone metastases on Xtandi as well as hydronephrosis and a right atrophic kidney managed with indwelling ureteral stent previously managed by outside urologist. 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 Assessment: #1 Pre-Existing Unstageable Pressure Injury over Scar Tissue [facility] RN was consulted to assess pre-existing Unstageable Pressure Injury of the coccyx. During previous hospital admission, patient was assessed to have a wound on his coccyx of unknown etiology, which he stated had been present for some time, but admitting he had never followed up with what it was. During that hospitalization, the wound continued to progress and developed into a multifactorial wound of likely friction, moisture and pressure. The patient was then discharged and returns with what is likely an unstageable pressure injury over suspected scar tissue based upon initial assessmentof the wound from 08/23/2023, and was further complicated by MASD and friction r/t previous admission. Further differential diagnosis could be cancerous wound. Please see wound assessment and wound care recommendations below. 09/09/23 1237 Wound 08/23/23 Pressure Injury Unstageable Coccyx Pre-Existing over Scar Tissue Date First Assessed/Time First Assessed: 08/23/23 0052 Present on Original Admission: (c) Yes WoundApproximate Age at First Assessment: Unknown Wound Exact Age at First Assessment: (c) Primary WoundType: Pressure Injury Pressure Injury Stagin... Date Wound Image Taken 09/09/23 Pain Score 0 - none *Shape Round / oval *Wound Length (cm) 1 cm *Wound Width (cm) 1 cm *Wound Depth (cm) 0.5 cm Wound Surface Area 1 cm^2 *Tunneling 0.5 @2000 *Signs of Infection None Unable to Measure N *Wound Bed Open;Cave-In-Rock;Yellow;Fibrin/Slough Tissue Exposed None Odor None *Exudate Amount Small Drainage Description Serous;Perez Janiya-wound Assessment Intact;Fragile;Cave-In-Rock;Purple;Maceration;White Periwound Treatment Liquid skin protectant (SurePrep) *Primary Dressing Gelling fiber/Hydrofiber (Aquacel Ag) *Primary Dressing Frequency of Change Daily & PRN *Secondary Dressing Foam (Sacral Mepilex Border) *Secondary Dressing Frequency of Change Daily & PRN Lengthy Treatment > 30 minutes > 30 minutes Ongoing management Nursing;Wound/pure culture operator Partial head to toe skin assessment completed as patient unable to turn and no other concerns DRESSING RECOMMENDATIONS: #1 Pre-Existing Unstageable Pressure Injury over Scar Tissue -Cleanse the wound with Vashe wound cleanser and 4x4 gauze. Pat dry. -Place Aquacel Ag and cut and lightly pack into the tunneled area to fill the space. Be sure to leave a tail for removal. Change once daily. -Cover with a sacral Mepilex border. -Change [...] prevention. Change every 3 days and PRN. Utilize the Advanced Wave Low Air Loss and Immersion mattress. Utilize a ROHO cushion when up to the chair. Recommended interventions for moisture control: Utilize the breathable incontinence underpads while in bed. Adult briefs should only be worn while ambulating or in the chair. Cleanse with foaming cleanser or wipes after each incontinence episode and for routine hygiene cares. Utilize the Advanced Wave low air loss and immersion mattress. Apply liquid skin protectant as directed. Consult recommendations: NA Education: Discussed the plan of care with the patient and nursing. They agree to the plan. The WOC RN will continue to see the patient, contact or reconsult for worsening wounds or new wounds. Electronically signed by: Jazmine Benítez R.N., C.W.C.N. 09/09/23 1:16 PM CDT * Raya Meza, Phuc., R.Ph., BCPS - 09/09/2023 11:17 AM CDT Images from the original note were not included. Pharmacist Progress Note Reason for admission: Recent hospitalization 08/13/23-08/26/23 due to hematuria, clot obstruction, intraperitoneal bladder perforation (was on both Plavix and Eliquis), s/p open exploratory laparotomy with cystotomy closure and right-sided ureteral stent exchange on 08/15/23, post-op complicated by ileus requiring NG tube placement, DVT of unclear chronicity managed with heparin drip transitioned toXarelto. Then rehospitalized 08/30/23-09/05/23 due to worsened hematuria, clot obstruction, s/p clot removal/CBI, subsequently restarted on Xarelto and Plavix. Urine was clear until 09/07 when he developed gross hematuria, smith in color. began to pass large clots, which led to this admission. 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 Hx of cardiac stents on Plavix. Hx of DVT on Xarelto. OBJECTIVE Scheduled home medications: Held: amlodipine, vitamin D, clopidogrel, coenzyme Q10, Vitron-C, mirabegron, tamsulosin, rivaroxaban Changed: trospium (as needed > scheduled) New: Senokot-S VTE prophylaxis: SCDs Heme: Rivaroxaban, clopidogrel on hold currently, pending Vascular med input and nephrostomy tubes in the coming days. ASSESSMENT / PLAN Adjusted metoprolol and rosuvastatin to bedtime dosing per updated med Hx per CPA. Medications and laboratory data have been reviewed. Pharmacy will continue to follow for medicationuse optimization Stephanie Meza PharmJonahD., R.Ph., [facility] Admission Medication History Note Adherence issues: No concerns Medication list source: Patient, son, recent filling Hx Medication related information: Per pt, he takes amlodipine, mirabegron daily in the afternoon, around 1 to 2 pm-tucker, for no specific reasons Prior to Admission Medications Med List Status: Pharmacy Complete Set By: Raya Meza Pharm.DJonah, R.Ph., [facility] at 09/09/2023 11:16 AM Taking? Last Dose Informant Start Date End Date LT amLODIPine (NORVASC) 10 mg tablet 09/08/2023 at 1-2 pm Self, Child 01/11/20 -- Take 10 mg by mouth daily. Takes in the afternoon, 1 to 2 pm cholecalciferol (Vitamin D3) 50 mcg (2,000 Unit) tablet -- Self, Child -- -- Take 50 mcg by mouth daily. clopidogreL (PLAVIX) 75 mg tablet 09/08/2023 at 0800 Self, Child 12/27/19 -- Take 75 mg by mouth every morning. coenzyme Q10 (CO Q-10) 200 mg capsule -- Self, Child -- -- Take 200 mg by mouth daily. Notes: Per pt, he takes Q10 for his right leg pain enzalutamide (XTANDI) 40 mg capsule 09/08/2023 at am Self, Child -- -- Take 120 mg by mouth every morning. Take with or without food at the same time each day. Swallow itwhole. Notes: Pt's son was asking if we have supply of enzalutamide in hospital or if need to bring home supply; we do have supply here iron,carbonyl-vitamin C (VITRON-C) 65 mg iron- [address] tablet 09/08/2023 at am Self, Child -- -- Take 65 mg of iron by mouth every morning. Do not crush or chew. metoprolol succinate (TOPROL-XL) 50 mg 24 hr tablet 09/08/2023 at bedtime Self, Child 11/02/19 -- Take 50 mg by mouth at bedtime. mirabegron (MYRBETRIQ) 50 mg 24 hr tablet 09/08/2023 at 1-2 pm Self, Child -- -- Take 50 mg by mouth daily. Takes in the afternoon, 1-2 pm nitroglycerin (NITROSTAT) 0.4 mg SL tablet at as needed Self, Child 11/02/19 -- Place 0.4 mg under the tongue every 5 (five) minutes as needed for chest pain. If chest pain continues after 5 minutes, take the second dose and call 911 rosuvastatin (CRESTOR) 40 mg tablet 09/08/2023 at bedtime Self, Child -- -- Take 40 mg by mouth at bedtime. tamsulosin (FLOMAX) 0.4 mg 24 hr capsule 09/08/2023 at bedtime Self, Child 06/10/20 -- TAKE 1 CAPSULE(0.4 MG) BY MOUTH DAILY Patient taking differently: Take 0.4 mg by mouth at bedtime. trospium (SANCTURA) 20 mg tablet at as needed Self, Child 08/26/23 -- Take 1 tablet (20 mg total) by mouth 2 (two) times a day as needed (bladder spasms). please stop 24hours prior to catheter removal Xarelto 10 mg tablet 09/08/2023 at am Self, Child -- -- Take 10 mg by mouth every morning. Medications Discontinued During This Encounter Medication Reason bacitracin 500 unit/gram ointment Stephanie Meza Pharm.D., R.Ph., BCPS The information and recommendations contained in this note are based on information available at the time of documentation. * Paula Hernandez M.D. - 09/09/2023 9:04 AM CDT Urology plan of care: -please place Jon catheter placement, 22F three-way catheter -please obtain bladder US -admit to urology chief a blue consult note to follow Paula Hernandez M.D. Urology PGY-2 Pager #[phone] Please page Chief Urology at [phone] from 7 AM - 5 PM or at [phone] after hours with any questions/concerns. documented in this encounter Procedure Notes * Paula Hernandez M.D. - 09/15/2023 5:28 PM CDT Presented to the bedside for staple removal and ureteral stent removal. I removed each of his rayshawn, skin was clean, dry, intact. There were no areas of skin separation,no drainage from the incision. It looked to be healing very well. I then proceeded with ureteral stent removal. The patient was draped with blue OR towels and prepped with Betadine. The flexible cystoscope was introduced. Some small clots were noted in the bladder , we identified the right-sided ureteral stent. It was clasped with stent graspers and removed in its entirety. No encrustation. 20Fr [address] catheter was placed with 10cc sterile water in the balloon. cath was irrigated, urine clear pink at the end. Patient tolerated the procedure well * Jeffery Deluna M.D. - 09/13/2023 2:21 PM CDT PATIENT DISPOSITION Return to inpatient bed. POST-PROCEDURE DIAGNOSIS Radiation cystitis PROCEDURE PERFORMED AND DESCRIPTION Left nephrostomy tube placement PROCEDURE DETAILS See Radiology Report SPECIMENS REMOVED Urine sent from left kidney FINDINGS See dictation PRIMARY PROCEDURALIST MD Yue ASSISTANTS MD Mikie COMPLICATIONS None. DRAINS 10 Fr left nephrostomy tube IMPLANTS None. ANESTHESIA Moderate Sedation. FLUIDS See MAR ESTIMATED BLOOD LOSS <5ml CURRENT MEDICATIONS No Medication Changes FOLLOW-UP LETTER None. MAY RETURN TO WORK Not applicable PATIENT INSTRUCTIONS Routine exchange in 10-12 weeks. documented in this encounter Consult Notes * Shannan Qiu RDN - 09/14/2023 2:03 PM CDTAssociated Order(s): IP CONSULT TO DIETITIAN Clinical Nutrition: Initial Assessment Clinical Nutrition was requested to evaluate patient for assessment of nutritional status SUBJECTIVE Mr. Vega is a 83 y.o. 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 Pt has a history of prostate carcinoma with bone mets and radiation. On 08/14 had clot obstruction complicated by bladder repair. Plan was HBOT. Nutrition related medical/surgical history: CAD S/P stents, JUNITO-P Completed visit or chart review today without direct contact with the patient due to asleep and unable to interview. Current Nutrition (since admission): The patient has been eating. Percentage of Meals Eaten for thepast 72 hrs: Percent Meals Eaten (%) 09/14/23 1200 100 09/12/23 1755 75 09/12/23 1129 100 09/12/23 0800 [address]N to send oral supplements for patient. Nutrition history: Last admit: Typically, Mr. Vega has a good appetite. He has maintained his current weight. Unable to see today and will follow-up when appropriate. Food Allergies: None. Chewing/Swallowing Issues: None. OBJECTIVE Current nutrition orders: Dietary Orders (From admission, onward) Start Ordered 09/13/23 1640 Adult Diet Regular Diet effective now Question: Diet texture: Answer: Regular 09/13/23 7650 Skin integrity: Unstageable pressure injury to scar tissue of coccyx. Pertinent Labs: reviewed. GI Function: Last BM Date: 09/11/23, [place] Stool Chart: Type 5: Soft blobs with clear-cut edges, Passing Flatus: Yes Integumentary/Wounds: Lines/Drains/Airways Wound Duration Wound 08/15/23 Incision Pannus Mid 30 days Wound 08/23/23 Pressure Injury Unstageable Coccyx Pre-Existing over Scar Tissue 22 days Medications: Scheduled Meds:clopidogreL, 75 mg, oral, QAM enzalutamide, 120 mg, oral, Daily metoprolol succinate, 50 mg, oral, Daily at bedtime rivaroxaban, 10 mg, oral, QAM rosuvastatin, 40 mg, oral, Daily at bedtime sennosides-docusate sodium, 1 tablet, oral, BID sodium chloride, 3 mL, intravenous, Q12H MICKEY sulfamethoxazole-trimethoprim, 1 tablet, oral, Q12H MICKEY trospium, 20 mg, oral, BID before breakfast and dinner Continuous Infusions:NaCl 0.9 % irrigation solution 3,000 mL, 3,000 mL NaCl 0.9 % irrigation solution 3,000 mL, 3,000 mL PRN Meds:. acetaminophen alum-mag hydroxide-simeth bacitracin benzocaine-menthol diazePAM naloxone ondansetron sodium chloride sodium chloride Anthropometrics: Height: 180.3 cm Admission Weight: 86.8 kg (09/09/2023) Current Weight: 84.5 kg [place] Body Weight (Calculated) : 75.3 kg BMI (Calculated): 26 kg/m?? Net IO Since Admission: -1,250.61 mL [09/14/23 1403] Weight history: Wt Readings from Last 12 Encounters: 09/11/23 84.5 kg 08/26/23 92.4 kg 04/23/20 82.2 kg 04/16/20 85.2 kg 04/14/20 84.4 kg 04/09/20 86 kg 04/07/20 86 kg 04/02/20 86.8 kg 04/01/20 88 kg 03/21/20 85.1 kg Weight Change History: 04/05/23-94.3 kg, 08/13/23-91.2 kg. The patient has lost 4.6 kg in the last month or 5%. Estimated Needs: Total Calorie Needs: 6883-7605 calories/day Method to Estimate Energy Needs: kcal/kg (22-25 kcal/kg) Weight Used for Equation Calculations: 86.8 kg Total Protein Needs: 85 - 102 grams/day (Method to Estimate Protein Needs (g/kg): 1 - 1.2 gm/kg) Weight Used to Calculate Protein Needs (Kg): 85 kg Nutrition Diagnosis: Increased nutrient needs related to need for healing as evidenced by pressure injury. Malnutrition Criteria: will complete NFPE as able and when appropriate. ASSESSMENT / PLAN ASPEN Criteria Malnutrition Status: Nutrition Intervention: Interventions: Increase nutrient intake with small, frequent meals and/or snacks, Medical food supplement, Vitamin and mineral supplements. Recommendations: RDN to send oral supplement for protein. Therapeutic multivitamin with minerals daily to support skin integrity/wound healing. Zinc level was found to be <60 mcg/dL. Provide 220 milligrams zinc sulfate tablet BID for 2 weeks. Recheck levels in 2-4 weeks to ensure adequate repletion. Monitoring/Evaluation: Nutrition parameter to monitor: Meals/Supplement Intake, Weight Status, Nausea/Vomiting/Diarrhea, Pertinent Labs, Wound Healing Desired Outcome: Consume adequate nutrition orally Patient Goal(s): Consume 50-100% of 3 meals daily and Maintain weight Clinical Nutrition will continue to follow. For questions about patient's nutritional care please contact pager [phone] on weekdays 07:30-16:00 or [phone] on weekends/holidays ([facility]). * Clara Luu APRN, C.N.P., D.N.P. - 09/12/2023 11:59 AM CDTAssociated Order(s): Interventional Radiology Consult Vascular/Interventional Radiology IP Consultation Note SUBJECTIVE Interventional Radiology Consult Referring Provider: Paula Hernandez M.D. REASON FOR CONSULT Left nephrostomy tube placement HISTORY OF PRESENT ILLNESS Mr. Kalen Vega is a 83 y.o. 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 The patient initially presented at outside facility with difficulty urinating with hematuria and admitted for CBI. [facility] was [facility] after difficultywith irrigating his Jon and CT cystogram identified a bladder dome intraperitoneal perforation, adjacent to the long right distal ureteral stent. He underwent open bladder repair and right ureteralstent exchange on 08/15/2023. He was discharged on 08/25 and was readmitted due to worsening hematuria with clot obstruction. CT cystogram showed large volume of clot within the bladder. He underwentcystoscopy with clot evacuation on 08/31/2023 and discharged on 09/04 with plans for outpatient hype rbaric oxygen therapy. He was then readmitted on 09/08 after experiencing gross hematuria, smith in color. Jon catheter placed and CBI reinitiated. Plavix and Xarelto held in anticipation of nephrostomy tube placement, last doses on 09/07. He is undergoing a nuclear medicine kidney DMSA study today to assess renal function in atrophic right kidney. Interventional Radiology consulted for left nephrostomy tube placement for urinary diversion in setting of hematuria secondary to radiation cystitis. History reviewed. No pertinent past medical history. Past Surgical History: Procedure Laterality Date APPLICATION WOUND VAC ABDOMEN N/A 08/15/2023 Procedure: APPLICATION WOUND VACUUM ABDOMEN INCISIONAL; Surgeon: Boubacar Brock M.D.; Location: [facility] CYSTOSCOPY CYSTOGRAM VOIDING N/A 08/31/2023 Procedure: CYSTOSCOPY CYSTOGRAM; Surgeon: Mayur Alvarez M.D.; Location: [facility] CYSTOSCOPY EVACUATION CLOTS N/A 08/31/2023 Procedure: CYSTOSCOPY EVACUATION CLOTS; Surgeon: Mayur Alvarez M.D.; Location: [facility] CYSTOSCOPY FLEXIBLE N/A 08/15/2023 Procedure: CYSTOSCOPY FLEXIBLE; Surgeon: Boubacar Brock M.D.; Location: [facility] EXPLORATORY LAPAROTOMY N/A 08/15/2023 Procedure: Palliative EXPLORATORY LAPAROTOMY, CYSTOTOMY CLOSURE, RIGHT URETERAL STENT EXCHANGE; Surgeon: Boubacar Brock M.D.; Location: [facility] The following portions of the patient's history were reviewed and updated as appropriate: allergies, current medications, family history, medical history, social history, surgical history, and problem list. REVIEW OF SYSTEMS Pertinent items are noted in HPI. OBJECTIVE Current Weight: 84.5 kg VITAL SIGNS Weight: 84.5 kg, BMI (Calculated): 26 kg/m??, Blood Pressure: 153/76, Heart Rate: 75, Pulse Rate: 74, Resp Rate: 18, Temperature: 36.8 ??C, SpO2: 98 % Intake/Output Last 24 Hours: Intake/Output Summary (Last 24 hours) at 09/12/2023 1017 Last data filed at 09/12/2023 0904 Gross per 24 hour Intake 1126 ml Output 3280 ml Net -2154 ml PHYSICAL EXAM Vitals reviewed. Constitutional General: He is not in acute distress. Pulmonary Effort: Pulmonary effort is normal. Genitourinary Comments: Jon catheter in place with yellow urine Neurological Mental Status: He is alert. DIAGNOSTICS Imaging: EXAM: US KIDNEYS BILATERAL WITH BLADDER IMPRESSION: 1. Atrophic right kidney with moderate to severe hydronephrosis, despite the presence of ureteral stent. 2. Mild hydronephrosis on the left. 3. Patient unable to void, dependent debris/blood clot within the urinary bladder. Recent Results (from the past 24 hour(s)) CBC without Differential Collection Time: 09/12/23 3:42 AM Result Value Hemoglobin 7.2 (L) Hematocrit 23.3 (L) Erythrocytes 2.68 (L) MCV 86.9 RBC Distrib Width 16.9 (H) Platelet Count 386 (H) Leukocytes 8.1 APTT (Activated Partial Thromboplastin Time) Collection Time: 09/12/23 3:42 AM Result Value Activated Partial Thrombopl Time, P 49 (H) ASSESSMENT / PLAN #1 Hematuria Very pleasant 83-year-old male admitted with recurrent hematuria secondary to radiation cystitis. He is s/p open bladder repair, right ureteral stent exchange on 08/15/2023 and cystoscopy with clot evacuation on 08/31/2023. Additional pertinent past medical history includes coronary artery disease status post stenting on Plavix, DVT on Xarelto, and hydronephrosis of right atrophic kidney managed with indwelling ureteral stent. Last dose Plavix and Xarelto were on 09/07. He is on low intensity heparin nomogram. He is currently with a jon catheter for CBI (paused for observation yesterday as urine is clearing). Hgb level down to 7.2 and received 2 u PRBCs today. Bilateral kidney ultrasound de monstrating mild left hydronephrosis and atrophic right kidney with moderate to severe hydronephrosis. He will undergo DMSA renal scan today to assess functioning of right atrophic kidney. Ultimate goal is for hematuria to stabilize so he can complete HBOT as an outpatient. Interventional Radiology consulted for left nephrostomy tube placement for urinary diversion. I met with patient today to review procedure. Details of left nephrostomy tube placement were discussed. He understands prone positioning and moderate sedation. Reviewed potential risks including butnot limited to bleeding and infection. Recommend holding Plavix for full 5 days so it will be safe to proceed 09/12. Educational materials on care of a nephrostomy tube were provided. Discussed routineexchanges every 12 weeks if his nephrostomy tube remains in place and this will be directed by his Urology team. Patient is being transitioned from IV ceftriaxone to oral bactrim twice daily. Patientverbalized good understanding and is willing to proceed. RECOMMENDATIONS proceed with IR left nephrostomy tube placement on 09/13/2023. NPO after midnight for planned procedure. hold heparin nomogram for 4-6 hours before procedure. Continue holding Plavix and Xarelto. Anticipate reinitiation of IV heparin 6-8 hours after procedure and reinitiation of Plavix and oral anticoagulation at least 24 hours after procedure. CONSENT This procedure has been fully reviewed with the patient and written informed consent has been obtained. I personally spent >50% face to face with the patient in counseling and discussion and/or coordination of care as described above. Thank you for the opportunity to participate in this patient's care. This patient was staffed with Dr. Ryan who agrees with the assessment and recommendations. Please feel free to page [phone] after 5 PM and on weekends with additional questions. VIR will continue to follow * Alessandra Aguero D.O. - 09/09/2023 5:26 PM CDTAssociated Order(s): IP CONSULT TO VASCULAR MEDICINE VASCULAR MEDICINE CONSULT NOTE Requesting Physician: Gerri Merrill M.D.,* SUBJECTIVE REASON FOR CONSULT: assistance with AC management, patient on plavix and eliquis admitted with refractory hematuria requing CBI. Recommend heparin drip? thanks [facility] [phone] HISTORY OF PRESENT ILLNESS Mr. Vega is a 83 y.o. male admitted for refractory hematuria requiring CBI on 09/09/2023. Vascular medicine has been consulted for anticoagulation management in the setting of bleeding. His pertinent medical history includes: Metastatic prostate cancer s/p open bladder surgery for cystotomy closure and right ureteral stent 08/15/2023 History of radiation induced proctitis & hemorrhagic cystitis (secondary to problem #1) History of DVT Right iliac DVT, associated with malignancy and pelvic lymphadenopathy in February 2020; treated with Xarelto. 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 DVT was described as nonocclusive thrombus of the right common external and internal iliac veins with associated malignancy within the right sacrum. The DVT was thought to be related to compressive mass effect. He underwent IVC filter. Review of recent imaging (August 13, 2023) shows IVC filter in place. Recent duplex US of the bilateral LE on 08/17/23 demonstrated an incompletely recanalized thrombus extending from the right external iliac vein to the popliteal vein. He has been intermittently admitted for hemorrhage related to his hematuria; requiring numerous transfusions. He was recently evaluated by my colleague, Dr. Richards, in early August for anticoagulationrecommendations due to bleeding. He was recommended to continue clopidogrel and was transitioned torivaroxaban 10 mg daily. He is currently presenting for acute on chronic anemia due to hematuria. He is pending procedure tohelp with his hematuria. Vascular Medicine is called for anticoagulation recommendations REVIEW OF SYSTEMS Pertinent items are noted in HPI; all other review of systems was negative. OBJECTIVE BP 156/84 (BP Location: Left arm;Upper, Patient Position: Sitting) Pulse 99 Temp 37.1 ??C (Oral) Resp 16 Ht 180.3 cm Wt 86.4 kg SpO2 99% BMI 26.57 kg/m?? PHYSICAL EXAM GENERAL: Calm, cooperative, no acute distress, HEAD AND NECK: No evidence of JVP, HEART: S1, S2 appreciated with regular rate and rhythm; no significant murmurs/rubs or gallops noted. LUNGS: Clear to auscultation throughout in all goss, no use of accessory muscles. No audible wheezing/ rales or rhonchi. ABDOMEN: Soft, non-distended, bowel sounds present, no palpable hepatosplenomegaly, non-tender to light palpation in all quadrants. SKIN: Warm, well-perfused, no evidence of petechiae or teleangiectasia EXTREMITIES: No significant lower extremity edema. MUSCULOSKELETAL: Able to ambulate independently. NEURO: Moves all extremities spontaneously and purposefully. PSYCH:Appropriate mood, non-tangential in speech and thought process DIAGNOSTICS I have reviewed pertinent laboratory and imaging studies. Labs and images studies of note include: Complete Blood Count Lab Results Component Value Date WBC 14.5 (H) 09/09/2023 RBC 3.28 (L) 09/09/2023 HGB 8.9 (L) 09/09/2023 HCT 28.6 (L) 09/09/2023 MCV 87.2 09/09/2023 MCH 26.2 12/01/2022 MCHC 30.6 (L) 12/01/2022 PLT 384 (H) 09/09/2023 MPV 9.3 12/01/2022 Lab Results Component Value Date/Time NA 139 09/09/2023 08:04 AM CL 101 09/09/2023 08:04 AM CO2 27 01/28/2022 10:33 AM BUN 12 09/09/2023 08:04 AM CREATININE 1.27 09/09/2023 08:04 AM MG 2.1 08/26/2023 03:20 AM CALCIUM 8.8 09/09/2023 08:04 AM ALKPHOS 100 08/22/2023 02:40 AM ALKPHOS 57 01/28/2022 10:33 AM AST 25 08/22/2023 02:40 AM AST 18 01/28/2022 10:33 AM ALT 14 08/22/2023 02:40 AM BILITOT 0.4 08/22/2023 02:40 AM BILITOT 0.8 01/28/2022 10:33 AM US Kidneys Bilateral with Bladder Result Date: 09/09/2023 EXAM: US KIDNEYS BILATERAL WITH BLADDER [...] ultrasound of 08/30/2023. Patient unable to void. 1. Atrophic right kidney with moderate to severe hydronephrosis, despite the presence of ureteral stent. 2. Mild hydronephrosis on the left. 3. Patient unable to void, dependent debris/blood clot within the urinary bladder. CT Abdomen Pelvis with IV Contrast Result Date: 08/26/2023 1. Small bowel obstruction with a transition point in the right pelvis adjacent to the pelvic surgical drain. No findings to suggest bowel ischemia at this point. 2. Probable mild proctocolitis. 3. Resolution of hydronephrosis of the atrophic right kidney. US Lower Extremity Veins Bilateral Result Date: 08/18/2023 1. Aging, incompletely recanalized thrombus extends from the right external iliac vein to the popliteal vein. 2. No acute left-sided DVT. Interpretation of Outside CT Abdomen and or Pelvis Result Date: 08/13/2023 1. Since prior examination interval placement of a right nephroureteral stent. There is improved but persistent moderate pelvocaliectasis with decompressed right ureter. Progressed right renal atrophy. 2. Layering high attenuation debris in the bladder consistent with blood products. Intravesicular air locules most likely post instrumentation. 3. New venous collaterals extending from bilateral common femoral veins. Further evaluation is limited due to the absence of IV contrast. This may be related to chronic occlusive/thrombotic disease that is not well seen on today's exam. 4. New sclerotic lesions within the pelvis. These are technically indeterminate, but given the patient's history of prostatic cancer these are concerning for metastatic disease. 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 Vega is a pleasant 83 y.o. male admitted with acute on chronic anemia due to refractory hematuria from his prior history of hemorrhagic cystitis. His medical comorbidities include CAD with 6 prior stents placed (2017) and prior DVT related to malignancy s/p IVC filter placement. Vascular Medicine is consulted for anticoagulation management and plan in the setting of acute bleeding. Ultimately, he has a strong indication for both anticoagulation and antiplatelet. His antiplatelet is presently on hold, which is reasonable given lack of anginal symptoms and remote history of stentplacement. In the interim, he is being maintained on a heparin nomogram while awaiting additional pr ocedures which is reasonable. Recommend starting a low-intensity heparin nomogram currently. Hopefully, his bleeding can be more definitively managed to allow resumption of his home antiplatelet and at least prophylactic anticoagulation. Plan: Agree with holding home anticoagulation and antiplatelets due to active bleeding and need for procedure. Utilize heparin nomogram, dose escalating as tolerated, in the interim. It was a pleasure to meet Mr. Vega and his son today in consultation. Please do not hesitate tocontact our team if further questions arise. . * Paula Hernandez M.D. - 09/09/2023 9:10 AM CDTAssociated Order(s): IP CONSULT TO UROLOGY UROLOGY CONSULT NOTE REASON FOR CONSULT hematuria. HISTORY OF PRESENT ILLNESS Mr. Vega is a pleasant 83 y.o. male for whom we are consulted for the management of the above. He was well known to our service and was just discharged on 09/05/23. He has urologic history advanced prostate cancer (status post radiation) with bone metastases on Xtandi as well [...] Unfortunately, he presented to local emergency department 08/29 with worsened hematuria, clot obstruction and we recommended transfer here for management of hematuria, CBI. CT cystogram 08/30 demonstrated large volume of clot within the bladder. No evidence of perforation. After discussion with the patient in his family we elected to take him for cystoscopy with clot evacuation we are about 6 cm ofwell-formed clot was identified and removed from the bladder. He was maintained on CBI postoperatively and his anticoagulation was held.On 08/31 we initiated heparin drip. His urine remained clear.. We removed his catheter on 09/02. Urine remained clear as we transitioned from heparin drip to home Xarelto and Plavix. He was discharged 09/04. While in the hospital hyperbaric oxygen was consulted and agreed to see him as an outpatient. His first visit with them was scheduled for this morning. He did well initially this week. He is incontinent at baseline though his bladder does cycle and hefeels it fill, he just leaks before ever being able to get to the bathroom and void spontaneously. Wears depends. Urine was clear until 09/07 when he developed gross hematuria, smith in color. Also began to pass large clots so presented for evaluation. He did endorse some rectal bleeding this week as well. Anticoagulation: Plavix and Eliquis last doses of each on 09/07 a.m. Past Medical History Metastatic prostate cancer on ADT Radiation proctitis and recurrent GI bleeds CAD status post stents on Plavix DVT on Xarelto Past Surgical History Multiple prior stent exchanges in nephrostomy tubes on the right Multiple prior GI procedures for radiation proctitis SOCIAL HISTORY Lives in [place], [place] OBJECTIVE AVSS General: Lying in bed, comfortable appearing Abdomen: Soft, nondistended, no flank pain. Surgical rayshawn in place, some mild drainage in skin fold lower third of incision. Otherwise clean, dry, intact. Labs: Hemoglobin 8.9 from 9.6 on 09/03 Creatinine 1.27 (baseline around 1 point 1 5) Imaging: None this admission Micro: Urine culture 09/02 no growth Known urine ASSESSMENT / PLAN Mr. Vega is a very pleasant 83 y.o. 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 He is status post clot obstruction complicated by intraperitoneal bladder repair on08/15/2023, hospitalized until 08/25. Re-presented 08/30 with hematuria status post cystoscopy clot evacuation 08/30, discharge 09/04. Had been planning to meet with hyperbaric oxygen outpatient today. Heis on Plavix for history of cardiac stents last took 09/07, on Eliquis for history of DVT last took 09/07. Had a nice discussion with the patient and his son, Kar this morning in the emergency department. I discussed with them the challenging nature of radiation cystitis. We will plan for catheter placement, hold anticoagulation, renal bladder ultrasound, hand irrigations progressing as needed to CBI. We will hold his anticoagulation for the moment in anticipation of left possibly right nephrostomy tube placement when he is no longer therapeutic for urinary diversion. Anticipate this will be several days given last dose of Plavix 09/07. We will plan to engage vascular Medicine as well. He has an atrophic right kidney which based on imaging I suspect is contributing minimally to his overall urine production based on CT appearance, though it does not look like he has ever had functional studies to specifically investigate this. 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 We may be able to proceed with just left-sided nephrostomy tube placement, we will discuss with team, IR. We will transfuse as needed with hemoglobin goal greater than 8 given cardiac history. Plan: -Jon catheter insertion, renal bladder ultrasound while in the emergency department -admission to Urology Chief a blue -holding anticoagulation -Vascular Medicine consult -nephrostomy tubes in the coming days after no longer therapeutically anticoagulated The above was discussed with Dr. Victoria, the chief urology resident regional maintenance manager. Please page chief Urology Service [place] [phone] [place] [phone] after hours. Paula Hernandez M.D. 09/09/23 9:10 AM CDT I saw and evaluated the patient with the teaching physician Dr.Boyd Trevor Holbrook. They were present during the henderson portions of the service and reviewed and agreed with my documentation. Associated attestation - Sumit Holbrook M.D. - 09/09/2023 1:23 PM CDT I saw and evaluated the patient, participating in the henderson portions of the service. I reviewed the resident/fellow???s note. I agree with the resident/fellow???s findings and plan. Given bladder perforation due to clot retention in the setting of radiation with primary closure within the last month recommend continuing with indwelling catheter to minimize further trauma to the bladder. Needs to initiate hyperbaric oxygen therapy and temporarily hold anticoagulation and antiplatelet therapy. If no improvement in hematuria despite these measures would then consider left nephrostomy tube. Nonfunctional right kidney can also consider removal of indwelling right ureteral stentwhile on targeted antibiotic therapy documented in this encounter Nursing Notes * Brittanie Lewis RRitesh. - 09/15/2023 5:18 PM CDT Shift Goals: Clinical Goals for the Shift: Pt will report adequate pain control during shift Identify possible barriers to meeting goals/advancing plan of care: none End of Shift Summary: Pt DC'd to [facility] with family. Patient educated on nephrostomy tube care, catheter care, s/s of infection, and wound cares/dressing changes. Patient and family accepting of all education completed prior to DC. Family taught back dressing changes and how to empty drainage bags. Pt/family reported knowing how to contact service if concerns arise. VSS and PIV's removed prior to discharge. Electronically signed by: Brittanie Lewis R.N. 09/15/23 5:29 PM CDT * Brittni Hayes R.N. - 09/15/2023 5:07 AM CDT Problem: PAIN - ADULT Goal: PT VERBALIZES/DEMONSTRATES ADEQUATE COMFORT LEVEL OR BASELINE Outcome: Progressing Note: Patient denied pain throughout the shift. Problem: SAFETY ADULT Goal: Maintain a safe environment Note: Patient remained safe. Call light appropriate. Shift Goals: Clinical Goals for the Shift: Pt will report adequate pain control during shift Identify possible barriers to meeting goals/advancing plan of care: None End of Shift Summary: VSS. Patient slept well overnight. No other events this shift. documented in this encounter ED Notes * Gerri Merrill M.D., Ph.D. - 09/09/2023 9:26 AM CDT I have personally seen and examined this patient. I have fully participated in the care of this patient. I have reviewed all clinical information including history, physical exam, orders, and plan. Kat with the note of the resident. Patient is a very pleasant 83-year-old gentleman with a past medical history significant for a complex urologic history including prostate cancer status post radiation treatment who presents today for hematochezia and hematuria. He has had this many times in the past related to his radiation cystitis and proctitis. He has some very mild suprapubic discomfort when he urinates but otherwise denies abdominal pain. He denies any fevers or chills. He has required multiple transfusions in the past for anemia. He is alert and hemodynamically stable. On exam, he is pale appearing but otherwise in no distress.His abdominal incision appears to be healing wound without any obvious surrounding cellulitis. There was no purulent drainage at the time of my evaluation. There was no tenderness to palpation or fluctuance. This is an 83-year-old gentleman who presents with hematuria and hematochezia. Labs demonstrate a relatively stable hemoglobin of 8.9 down from 9.6. His INR is normal. Creatinine is baseline. Postvoid residual was 125. White blood cell count is elevated at 14.5. Urology would not like us to initiate any antibiotics at this point. They would like him to be admitted for further inpatient management. Final Diagnoses: as of 09/09/23 0926 Hematuria Gerri Merrill M.D., Ph.D. 09/11/23 0717 * Jeffery Church M.D. - 09/09/2023 8:25 AM CDT SUBJECTIVE CHIEF COMPLAINT/REASON FOR VISIT Blood in Urine HISTORY OF PRESENT ILLNESS Mr. Vega is an 83-year-old male with a history of metastatic prostate cancer status post exploratory laparotomy with cystostomy closure and right ureteral stent placement with Dr. rBock. He returns to the emergency department 4 days after discharge from the hospital for recurrence of hematuria. Reports the past significant clot earlier today, restarted his Xarelto upon discharge from the hospital and notes that he had been admitted for similar hematuria last week. Denies any fevers, chills, does have some lower abdominal discomfort and urinary urgency. Feels it is difficult to pass urine at this point. Nose he is also having bright red blood around his stools in the context of known radiation proctitis. REVIEW OF SYSTEMS Pertinent review of systems documented above in the HPI OBJECTIVE Initial Vitals Temperature 09/09/23 0748 36.5 ??C Pulse Rate 09/09/23 0745 78 Heart Rate -- Resp Rate 09/09/23 0748 15 Blood Pressure 09/09/23 0745 152/85 SpO2 09/09/23 0745 98 % Pain Score 09/09/23 0732 0 - No pain PHYSICAL EXAMINATION Pale. Nontoxic appearing. Mucous membranes are dry. Abdomen is soft, nontender. Lower exploratory laparotomy incision rayshawn are in place. There is a small area purulence in the lower aspect of the incision. No fluctuance, warmth, or induration around this. There is small amount of blood at the urethral meatus. No phimosis. Testicles are nontender to palpation. No scrotal edema. Small amount of light brown stool in the anus. ASSESSMENT/PLAN 83-year-old male on anticoagulation for VTE, recent admission for hematuria, significant anemia in the context of postoperative period of exploratory laparotomy, cystostomy closure, ureteral stent placement. Differential includes significant anemia, obstructive uropathy from hematuria, UTI, postoperative infection given the small amount of purulence around the incision. I do not think he needs a CT scan at this point. Labs including CBC, BMP ordered. Urology consulted after discussion with the catheter network operations technician who advised that for this patient they are required to get approval from Urologyprior to placing catheter. ED Course as of 09/09/23 0958 TueSeptember 09, 2023 0822 Hemoglobin(!): 8.9 Down from 9.6 one-week ago 0822 Leukocytes(!): 14.5 New leukocytosis with neutrophilia 0822 INR: 1.1 0823 Discussed with the catheter network operations technician. Bladder scan showed 125 mL. There is fresh blood at the urethral meatus. Patient slightly uncomfortable. The calf tag recommended discussing with Urology before they proceed with attempting to place a catheter. 0957 Patient seen by Urology. They have accepted the patient to chief a blue service. Requested three-way catheter placement and kidney and bladder ultrasound prior to coming up to the urology service. Final Diagnoses: as of 09/09/23 0958 Hematuria Care Handoff Row Name 09/09/23 0917 Care Handoff Type of Handoff Admission handoff Jeffery Church M.D. Resident 09/09/23 0958 documented in this encounter Miscellaneous Notes * Hospital Course - Paula Hernandez M.D. - 09/15/2023 8:57 AM CDT Mr. Vega is a pleasant 83 y.o. 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 He is status post clot obstruction complicated by intraperitoneal bladder repair on 08/15/2023, hospitalized until 08/25. Re- presented 08/30 with hematuria status post cystoscopy clot evacuation 08/30, discharge 09/04. Had planned outpatient follow up with hyperbaric O2, unfortunately re-presented 09/08 with recurrent gross hemturia, clots. He is on Plavix for history of cardiac stents last took 09/07, on Xarelto for history of DVT last took 09/07. Vascular medicine following for anticoagulation recommendations, recommended low, then excalation to moderate intensity heparin nomogram. After 5 days off of plavix/xarelto, patient underwent left nephrostomy tube placement on 09/12. Nephrostomy drained clear yellow urine. We then re-initiated the patient on his home Plavix, Xarelto on 09/14/23 and stopped the heparin drip. Urine remained clear from catheter and from nephrostomy tube. Urine cultures positive for Enterobacter with resistance to cephalosporins, on bactrim. Bactrim initiated 09/11 DMSA obtained 09/12/2023 to assess right-sided split function and assess appropriateness for removal of the right-sided ureteral stent. Demonstrated 3% function on the right, not surprising based on his imaging. After 3 days culture directed antibiotics the ureteral stent was removed at the bedside. Recommend 2 additional days of Bactrim at discharge Comorbidities: Metastatic prostate cancer on ADT, Radiation proctitis and recurrent GI bleeds. CAD status post stents on Plavix. DVT on Xarelto (also IVC filter in place) Follow up: -patient will contact hyperbaric oxygen to get back on their schedule for a visit and treatment -patient will need catheter exchange in 1 month, our team favors keeping the catheter in place for the time being -continue home anticoagulation with Plavix, Xarelto -2 days Bactrim at discharge -patient's rayshawn were removed prior to discharge -patient counseled on warning symptoms (signs of infection, fevers, chills, flank pain on the rightside in light of his right-sided ureteral stent being removed) -three-month nephrostomy tube exchange ordered -our contact information was again provided to the patient documented in this encounter Plan of Treatment Upcoming Encounters Date Type Department Care Team (Late Contact Info) Description 10/14/2023 1:00 PM CDT Procedure visit Department of Urology in [place], [place] [address] [place] [address] Paula Hernandez M.D. [address] [place] [address] Pending Results Name Type Priority Associated Diagnoses Date /Time Prepare Red Blood Cells, 2 Units Blood Bank Routine 09/09/2023 8:03 AM CDT Bacterial Culture, Aerobic + Susceptibility Microbiology Timed 024 2:17 PM CDT Bacterial Culture, Anaerobic + Susceptibility Microbiology Timed 09/13/2023 2:17 PM CDT Fungal Culture, Routine Microbiology Timed 09/13/2023 2:17 PM CDT Scheduled Orders Name Type Priority Associated Diagnoses Order Schedule Gram Stain Microbiology STAT STAT for 1 Occurrences starting 09/09/2023 until 09/09/2023 Fungal Culture, Routine Microbiology Timed For manual relea se during upcoming procedure for 1 Occurrences starting 09/13/2023 until 09/13/2023 IR Nephrostomy Tube Exchange Left Imaging RAD - Routine (most inpatients and all outpatients) Hematuria Expected: 12/16/2023, Expires: 12/15/2024 URO Urethral cath change (UCC) Procedure Routine Hematuria Expected: 10/15/2023, Expires: 12/15/2024 documented as of this encounter Procedures Procedure [...] outpatients) 09/13/2023 2:20 PM CDT BACTERIAL CULTURE, AEROBIC + SUSC Timed 09/13/2023 2:17 PM CDT GRAM STAIN Timed 09/13/2023 2:17 PM CDT BACTERIAL CULTURE, ANAEROBIC + SUSC Timed 09/13/2023 2:17 PM CDT ADULT OXYGEN THERAPY Routine 09/13/2023 2:02 PM CDT ADULT OXYGEN THERAPY Routine 09/13/2023 8:01 AM CDT CBC WITHOUT DIFFERENTIAL, B Routine 09/13/2023 5:57 AM CDT ACTIVATED PARTIAL THROMBOPLASTIN TIME (APTT), P Routine 09/13/2023 5:56 AM CDT HEPARIN LEVEL ANTI-XA ASSAY, P Routine 09/13/2023 5:56 AM CDT BASIC [...] OXYGEN THERAPY Routine 09/11/2023 8:00 PM CDT CBC WITHOUT DIFFERENTIAL, B Routine 09/11/2023 8:23 AM CDT BASIC METABOLIC PANEL, S/P Routine 09/11/2023 8:23 AM CDT ADULT OXYGEN [...] (APTT), P STAT 09/09/2023 5:08 PM CDT HC OSMOLALITY ASSAY URINE STAT 09/09/2023 11:28 AM CDT DIPSTICK, U STAT 09/09/2023 11:28 AM CDT PH, RANDOM, U STAT 09/09/2023 11:28 AM CDT MICROSCOPIC MANUAL STAT 09/09/2023 11:28 AM CDT BACTERIAL CULTURE, AEROBIC + SUSC, URINE STAT 09/09/2023 11:[address], U STAT 09/09/2023 11:28 AM CDT URINALYSIS WITH MICROSCOPIC STAT 09/09/2023 11:28 AM CDT ADULT OXYGEN [...] AND SCREEN Routine 09/09/2023 8:03 AM CDT documented in this encounter Results * (ABNORMAL) CBC without Differential (09/15/2023 3:37 AM CDT) Hemoglobin 9.8(L) 13.2 - 16.6 g/dL 09/15/2023 [...] Paula Hernandez M.D. LAB BLOOD ADD-ON [facility] [address] [place] [address], [facility] DTL [facility] [address] [place] [address] * Heparin Anti-Xa Assay (09/14/2023 3:19 AM CDT) [facility] Heparin Anti-Xa, P 0.11 IU/mL 2023 4:07 [...] Sumit Holbrook M.D. LAB BLOOD NON ADD-ON [place] [address] [place] [address], [facility] [place] [address] * (ABNORMAL) CBC without Differential (09/14/2023 3:19 AM CDT) [facility] Hemoglobin 10.1(L) 13.2 - 16.6 g/dL 09/14/2023 3:44 AM CDT DTL Hematocrit 31.0(L) 38.3 - 48.6 % 09/14/2023 3:44 AM CDT DTL Erythrocytes 3.59(L) 4.35 - 5.65 x10(12)/L 09/14/2023 3:44 AM CDT DTL MCV 86.4 78.2 - 97.9 fL 09/14/2023 3:44 AM CDT DTL RBC Distrib Width 16.2(H) 11.8 - 14.5 % 09/14/2023 3:44 AM CDT DTL Platelet Count 387(H) 135 - 317 x10(9)/L 09/14/2023 3:44 AM CDT DTL Leukocytes 8.5 3.4 - 9.6 x10(9)/L 09/14/2023 3:44 AM CDT DTL Blood (Blood, Venous) 09/14/2023 3:19 AM CDT 09/14/2023 3:38 AM CDT Paula Hernandez M.D. LAB BLOOD ADD-ON [facility] [address] [place] [address], [facility] DTL [facility] [address] [place] [address] * IR Nephrostomy Tube Placement Left (09/13/2023 2:20 PM CDT) Anatomical Region Laterality Modality Genito Urinary, Vascular Int erventional RST LOS, Vascular Interventional ARZ LOS, Vascular Interventional FLA LOS Left X-Ray Angiography Impressions 09/13/2023 2:33 PM CDT Left 10 [place] percutaneous nephrostomy tube placement. EP Narrative 09/13/2023 [...] tract was further dilated and a 10 [place] nephrostomy tube was placed with loop formed [...] sedation timewas: 9 minutes. IMPRESSION: Left 10 [place] percutaneous nephrostomy tube placement. EP Latisha Whitehead M.D. IMG IR PROCEDURE S * Gram Stain (09/13/2023 2:17 PM CDT) Pathologist [facility] Gram Stain No organisms seen. White blood cells, Rare 09/13/2023 9:02 PM CDT DTL Fluid (Kidney, Left) 09/13/2023 2:17 PM CDT 09/13/2023 3:56 PM CDT Comment:Specimen Source Site : Fluid Latisha Whitehead M.D. LAB MICROBIOLOGY - GENERAL ORDERABLES [facility] [address] [place] [address], [facility] [address] [place] [address] * (ABNORMAL) CBC without Differential (09/13/2023 5:57 AM CDT) Pathologist [facility] Hemoglobin 9.3(L) 13.2 - 16.6 g/dL 09/13/2023 7:04 AM CDT DTL Hematocrit 29.1(L) 38.3 - 48.6 % 09/13/2023 7:04 AM CDT DTL Erythrocytes 3.36(L) 4.35 - 5.65 x10(12)/L 09/13/2023 7:04 AM CDT DTL MCV 86.6 78.2 - 97.9 fL 09/13/2023 7:04 AM CDT DTL RBC Distrib Width 16.4(H) 11.8 - 14.5 % 09/13/2023 7:04 AM CDT DTL Platelet Count 370(H) 135 - 317 x10(9)/L 09/13/2023 7:04 AM CDT DTL Leukocytes 8.2 3.4 - 9.6 x10(9)/L 09/13/2023 7:04 AM CDT DT Blood (Blood, Venous) 09/13/2023 5:57 AM CDT 09/13/2023 6:54 AM CDT Ko Victoria M.D. LAB BLOOD ADD-ON Performing Organization Address [facility]/ZIP Co de Phone Number [facility] [address] [place], [place] [id number] [place] [address] [address] [place] [address] * Heparin Anti-Xa Assay (09/13/2023 5:56 AM CDT) [facility] Heparin Anti-Xa, P 0.10 IU/mL 2023 7:14 AM CDT DTL Comment: UFH therapeutic range: [...] or unfractionated heparin (UFH). Blood (Blood, Venous) 09/13/2023 5:56 AM CDT 09/13/2023 6:53 AM CDT Sumit Holbrook M.D. LAB BLOOD NON ADD-ON Performing Organization Address [facility]/ZIP Co de Phone Number [facility] [address] [place] [address], [facility] [address] [place] [address] * APTT (Activated Partial Thromboplastin Time) (09/13/2023 5:56 AM CDT) [facility] Activated Partial Thrombopl Time, P 35 25 - 37 sec 09/13/2023 7:14 AM CDT DTL Blood (Blood, Venous) 09/13/2023 5:56 AM CDT 09/13/2023 6:53 AM CDT Sumit Holbrook M.D. LAB BLOOD ADD-ON [facility] [address] [place] [address], [facility] [address] [place] [address] * (ABNORMAL) Basic Metabolic Panel (09/13/2023 5:56 AM CDT) Pathologist [facility] Potassium, S 3.7 3.6 - 5.2 [...] CDT Paula Hernandez M.D. LAB BLOOD ADD-ON [facility] [address] [place] [address], [place] DTL [facility] [address] [place] [address] * NM Kidney DMSA (09/12/2023 12:21 PM [...] COMPARISON: Bilateral renal ultrasound 09/09/2023, CT abdomen pelvis5/. INDICATION: Right hydronephrosis with atrophic right kidney, [...] Blood Cells : (09/12/2023 11:12 AM CDT) Paula Hernandez M.D. BLOOD TRANSFUSION OR DERABLES * Transfuse Red Blood Cells : , 2 Units (09/12/2023 11:12 AM CDT) Paula Hernandez M.D. BLOOD TRANSFUSION OR DERABLES * Transfuse Red Blood Cells : (09/12/2023 8:08 AM CDT) Paula Hernandez M.D. BLOOD TRANSFUSION OR DERABLES * (ABNORMAL) CBC without Differential (09/12/2023 3:42 AM CDT) [facility] Hemoglobin 7.2(L) 13.2 - 16.6 g/dL 09/12/2023 4:06 AM CDT DTL Hematocrit 23.3(L) 38.3 - 48.6 % 09/12/2023 4:06 AM CDT DTL Erythrocytes 2.68(L) 4.35 - 5.65 x10(12)/L 09/12/2023 4:06 AM CDT DTL MCV 86.9 78.2 - 97.9 fL 09/12/2023 4:06 AM CDT DTL RBC Distrib Width 16.9(H) 11.8 - 14.5 % 09/12/2023 4:06 AM CDT DTL Platelet Count 386(H) 135 - 317 x10(9)/L 09/12/2023 4:06 AM CDT DTL Leukocytes 8.1 3.4 - 9.6 x10(9)/L 09/12/2023 4:06 AM CDT DTL Blood (Blood, Venous) 09/12/2023 3:42 AM CDT 09/12/2023 4:00 AM CDT Ko Victoria M.D. LAB BLOOD ADD-ON Performing Organization Address [facility] Co de Phone Number [facility] [address] [place] [address] * (ABNORMAL) APTT (Activated Partial Thromboplastin Time) (09/12/2023 3:42 AM CDT) [facility] Activated Partial Thrombopl Time, P 49(H) 25 - 37 sec 09/12/2023 4:35 AM CDT DTL Blood (Blood, Venous) 09/12/2023 3:42 AM CDT 09/12/2023 4:00 AM CDT Gerri Merrill M.D., Ph.D. LAB BLOOD A DD-ON Performing Organization Address [facility] de Phone Number [facility] [address] [place] [address] * (ABNORMAL) Basic Metabolic Panel (09/11/2023 8:23 AM CDT) [facility] Potassium, S 3.5(L) 3.6 - 5.2 mmol/L 09/11/2023 9:23 AM CDT DTL Sodium, S 140 135 - 145 mmol/L 09/11/2023 9:23 AM CDT DTL Chloride, S 105 98 - 107 mmol/L 09/11/2023 9:23 AM CDT DTL Bicarbonate, S 26 22 - 29 mmol/L 09/11/2023 9:23 AM CDT DTL Anion Gap 9 7 - 15 09/11/2023 9:23 AM CDT DTL BUN (Blood Urea Nitrogen), S 15 8 - 24 mg/dL 09/11/2023 9:23 AM CDT DTL Creatinine 1.15 0.74 - 1.35 mg/dL 09/11/2023 9:23 AM CDT DTL Estimated GFR (eGFR) 63 >=60 mL/min/BSA 09/11/2023 9:23 AM CDT DTL Comment: Estimated GFR calculated using the 2020 CKD_EPI creatinine equation. Calcium, Total, S 8.8 8.8 - 10.2 mg/dL 09/11/2023 9:23 AM CDT DTL Glucose, S 111 70 - 140 mg/dL 09/11/2023 9:23 AM CDT DTL Blood (Blood, Venous) 09/11/2023 8:23 AM CDT 09/11/2023 9:06 AM CDT Js Yang M.D. LAB BLOOD ADD-ON [address] [address], [facility] [address] [address] * (ABNORMAL) CBC without Differential (09/11/2023 8:23 AM CDT) [facility] Hemoglobin 8.2(L) 13.2 - 16.6 g/dL 09/11/2023 9:02 AM CDT DTL Hematocrit 26.5(L) 38.3 - 48.6 % 09/11/2023 9:02 AM CDT DTL Erythrocytes 3.05(L) 4.35 - 5.65 x10(12)/L 09/11/2023 9:02 AM CDT DTL MCV 86.9 78.2 - 97.9 fL 09/11/2023 9:02 AM CDT DTL RBC Distrib Width 17.2(H) 11.8 - 14.5 % 09/11/2023 9:02 AM CDT DTL Platelet Count 404(H) 135 - 317 x10(9)/L 09/11/2023 9:02 AM CDT DTL Leukocytes 11.1(H) 3.4 - 9.6 x10(9)/L 09/11/2023 9:02 AM CDT DTL Blood (Blood, Venous) 09/11/2023 8:23 AM CDT 09/11/2023 8:50 AM CDT Ko Victoria M.D. LAB BLOOD ADD-ON Performing Organization Address City/[facility]/[place] [address] * (ABNORMAL) APTT (Activated Partial Thromboplastin Time) (09/10/2023 11:42 PM CDT) Activated Partial Thrombopl Time, P 47(H) 25 - 37 sec 09/11/2023 2:05 AM CDT DTL Blood (Blood, Venous) 09/10/2023 11:42 PM CDT 09/11/2023 2:05 AM CDT Gerri Merrill M.D., Ph.D. LAB BLOOD A DD-ON Performing Organization Address [facility] Co de Phone Number [facility] [address] [place] [address] * US Urinary Bladder (09/10/2023 8:41 PM CDT) Anatomical Region Laterality Modality Body, [...] Js Yang M.D. IMG US PROCEDURES * (ABNORMAL) APTT (Activated Partial Thromboplastin Time) (09/10/2023 6:09 PM CDT) Activated Partial Thrombopl Time, P 46(H) 25 - 37 sec 09/10/2023 7:47 PM CDT DTL Blood (Blood, Venous) 09/10/2023 6:09 PM CDT 09/10/2023 6:25 PM CDT Gerri Merrill M.D., Ph.D. [place] [address] * (ABNORMAL) APTT (Activated Partial Thromboplastin Time) (09/10/2023 10:11 AM CDT) [facility] Activated Partial Thrombopl Time, P 63(H) 25 - 37 sec 09/10/2023 10:57 AM CDT DTL Blood (Blood, Venous) 09/10/2023 10:11 AM CDT 09/10/2023 10:40 AM CDT Gerri Merrill M.D., Ph.D. [place] [address] * (ABNORMAL) CBC without Differential (09/10/2023 3:27 AM CDT) [facility] Hemoglobin 8.1(L) 13.2 - 16.6 g/dL 09/10/2023 4:39 AM CDT DTL Hematocrit 26.5(L) 38.3 - 48.6 % 09/10/2023 4:39 AM CDT DTL Erythrocytes 3.03(L) 4.35 - 5.65 x10(12)/L 09/10/2023 4:39 AM CDT DTL MCV 87.5 78.2 - 97.9 fL 09/10/2023 4:39 AM CDT DTL RBC Distrib Width 17.1(H) 11.8 - 14.5 % 09/10/2023 4:39 AM CDT DTL Platelet Count 371(H) 135 - 317 x10(9)/L 09/10/2023 4:39 AM CDT DTL Leukocytes 13.1(H) 3.4 - 9.6 x10(9)/L 09/10/2023 4:39 AM CDT DTL Blood (Blood, Venous) 09/10/2023 3:27 AM CDT 09/10/2023 4:30 AM CDT Ko Victoria M.D. LAB BLOOD ADD-ON Performing Organization Address [facility]/ZIP Co de Phone Number [facility] [address] [place] [address] * (ABNORMAL) APTT (Activated Partial Thromboplastin Time) (09/10/2023 12:06 AM CDT) Activated Partial Thrombopl Time, P 57(H) 25 - 37 sec 09/10/2023 1:05 AM CDT DTL Blood (Blood, Venous) 09/10/2023 12:06 AM CDT 09/10/2023 12:33 AM CDT Gerri Merrill M.D., Ph.D. LAB BLOOD A DD-ON Performing Organization Address [facility]/ZIP Co de Phone Number [facility] [address] [facility] [address] [place] [id number] * APTT (Activated Partial Thromboplastin Time) (09/09/2023 5:08 PM CDT) Pathologist [facility] Activated Partial Thrombopl Time, P 31 25 - 37 sec 09/09/2023 5:24 PM CDT STMA Blood (Blood, Venous) 09/09/2023 5:08 PM CDT 09/09/2023 5:12 PM CDT Ko Victoria M.D. LAB BLOOD ADD-ON Performing Organization Address City/[facility]/ZIP Co de Phone Number [facility] [address] [place] [address], [facility] [address] [address] * (ABNORMAL) Dipstick, Urine (09/09/2023 11:28 AM CDT) [facility] Hemoglobin, QL, U Large(A) Negative 09/09/2023 12:03 [...] LAB URINE ORDERA BLES Performing Organization Address City/[facility]/ZIP Co de Phone Number [facility] [address] [place] [address], [facility] [address] [address] * pH, Random, Urine (09/09/2023 11:28 AM CDT) Pathologist [facility] pH, Random, U 6.3 4.5 - 8.0 09/09/2023 12:19 PM CDT DTL Urine 09/09/2023 11:2 8 AM CDT 09/09/2023 11:58 AM CDT Jeffery Church M.D. LAB URINE ORDERA BLES Performing Organization Address [facility] Co de Phone Number [facility] [address] [place] [address] * Osmolality, Urine (09/09/2023 11:28 AM CDT) Osmolality, U 380 150 - 1150 mOsm/kg 09/09/2023 12:19 PM CDT DTL Urine 09/09/2023 11:2 8 AM CDT 09/09/2023 11:58 AM CDT Jeffery Church M.D. LAB URINE ORDERA BLES Performing Organization Address [facility] Co de Phone Number [facility] [address] [place] [address], [place] [address] * (ABNORMAL) Microscopic Manual (09/09/2023 11:28 AM CDT) Microscopy Abnormal 09/09/2023 12:37 PM CDT DTL [...] CDT Jeffery Church M.D. LAB URINE ORDERA SHELLY Performing Organization Address City/[facility]/ZIP Co de Phone Number [facility] [address] [place] [address], [facility] [address] [place] [address] * (ABNORMAL) Gram Stain, Urine (09/09/2023 11:28 AM CDT) Source Urine, Urine, Straight Catheter 09/09/2023 11:58 AM CDT DTL Gram Stain, U Positive(A) Negative 09/09/2023 12:16 PM CDT DTL Comment: Few Gram-negative bacilli ? Yeast Urine 09/09/2023 11:2 8 AM CDT 09/09/2023 11:58 AM CDT Jeffery Church M.D. LAB URINE ORDERHelga BRAVO Performing Organization Address [facility] Co de Phone Number [facility] [address] [place] [address], [facility] [address] [place] [address] * (ABNORMAL) Bacterial Culture, Aerobic + Susceptibility, Urine (09/09/2023 11:28 AM CDT) Urine Culture ENTEROBACTER CLOACAE COMPLEX >100,000 cfu/mL [...] Church M.D. LAB MICROBIOLOGY - GENERAL ORDERABLES [facility] [address] [place] [address], [facility] DTL [facility] [address] [place] [address] * (ABNORMAL) Urinalysis, with Microscopic: Urine, Straight Catheter (09/09/2023 11:28 AM CDT) Source Urine, Urine, [...] 09/09/2023 1:02 PM CDT DTL Predicted Range 2480-47444 mg/24 h 09/09/2023 1:02 PM CDT DTL Comment Micro done on <2.5 mL 09/09/2023 12:27 PM CDT DTL Urine (Urine, Straight Catheter) 09/09/2023 11:28 AM CDT 09/09/2023 11:58 AM CDT Jeffery Church M.D. LAB URINE ORDERA BLES [facility] [address] [place] [address], [facility] [address] [place] [address] * US Kidneys Bilateral with Bladder (09/09/2023 [...] Prothrombin Time (PT) (09/09/2023 8:04 AM CDT) Prothrombin Time, P 12.5 9.4 - 12.5 sec 09/09/2023 8:14 AM CDT STMA INR 1.1 0.9 - 1.1 09/09/2023 8:14 AM CDT STMA Comment: ----ADDITIONAL INFORMATION---- Standard intensity warfarin therapeutic range: 2.0 to 3.0 ?? High intensity warfarin therapeutic range: 2.5 to 3.5 Blood (Blood, Venous) 09/09/2023 8:04 AM CDT 09/09/2023 8:08 AM CDT Jeffery Church M.D. LAB BLOOD ADD-ON [facility] [address] [place] [address], [facility] STMA [facility] [address] [place] [address] * (ABNORMAL) CBC with Differential, Blood (09/09/2023 8:04 AM CDT) Hemoglobin 8.9(L) 13.2 - 16.6 g/dL 09/09/2023 [...] CDT Jeffery Church M.D. LAB BLOOD ADD-ON [facility] [address] [place] [address], [facility] STMA [facility] [address] [place] [address] [facility] [address] [place] [address] * (ABNORMAL) Basic Metabolic Panel (09/09/2023 8:04 AM CDT) [facility] Potassium, P 3.4(L) 3.6 - 5.2 mmol/L 09/09/2023 8:31 AM CDT STMA Sodium, P 139 135 - 145 mmol/L 09/09/2023 8:31 AM CDT STMA Chloride, P 101 98 - 107 mmol/L 09/09/2023 8:31 AM CDT STMA Bicarbonate, P 27 22 - 29 mmol/L 09/09/2023 8:31 AM CDT STMA Anion Gap, P 11 7 - 15 09/09/2023 8:31 AM CDT STMA BUN (Blood Urea Nitrogen), P 12 8 - 24 mg/dL 09/09/2023 8:31 AM CDT STMA Creatinine 1.27 0.74 - 1.35 mg/dL 09/09/2023 8:31 AM CDT STMA Estimated GFR (eGFR) 56(L) >=60 mL/min/BSA 09/09/2023 8:31 AM CDT STMA Comment: Estimated GFR calculated using the 2020 CKD_EPI creatinine equation. Calcium, Total, P 8.8 8.8 - 10.2 mg/dL 09/09/2023 8:31 AM CDT STMA Glucose, P 140 70 - 140 mg/dL 09/09/2023 8:31 AM CDT STMA Blood (Blood, Venous) 09/09/2023 8:04 AM CDT 09/09/2023 8:08 AM CDT Jeffery Church M.D. LAB BLOOD ADD-ON [facility] [address] [address] STMA [facility] [address] [place] [address] * Type and Screen (with Reflex Antibody ID) (09/09/2023 8:03 AM CDT) ABORh O Pos Not applicable 09/09/2023 8:47 AM CDT STRM Antibody Screen Negative Negative 09/09/2023 9:02 AM CDT STRM Type & Screen Expiration 09/12/2023 23:59 09/09/2023 8:47 AM CDT STRM Testing Location [place] DEFAULT 09/09/2023 8:10 AM CDT STRM Blood (Blood, Venous) 09/09/2023 8:03 AM CDT 09/09/2023 8:10 AM CDT Jeffery Church M.D. LAB BLOOD BANK T EST ORDERABLES Performing Organization Address City/State/[facility] Co de Phone Number [address] [address] [address] [place] [address] documented in this encounter Visit Diagnoses Diagnosis Hematuria- Primary Hematuria documented in this encounter Admitting Diagnoses Diagnosis Hematuria documented in this encounter Administered Medications Inactive Administered Medications - up to 3 most recent administrations Medication Order MAR Action Action Date Dose Rate Site acetaminophen tablet 1,000 mg (TYLENOL) 1,000 mg, oral, Every 6 hours PRN, mild pain or score 1-3 of 10, Starting on Tue09/09/23 at 1051, For mild pain, give acetaminophen before tramadol. Given 09/12/2023 6:47 AM CDT 1,000 mg Given 09/11/2023 8:39 PM CDT 1,000 mg Given 09/11/2023 5:16 AM CDT 1,000 mg alum-mag hydroxide-simeth 200-200-20 mg/5 mL suspension 30 mL (Maalox) 30 mL, oral, 4 times daily PRN, indigestion, Starting on Tue09/09/23 at 1052 bacitracin 500 unit/gram ointment packet 1 packet 1 packet (1 Application), topical, 3 times daily PRN, catheter irritaiton, Starting on Tue09/09/23 at 1128 Given 09/10/2023 8:54 AM CDT 1 packet Given 09/09/2023 8:42 PM CDT 1 packet benzocaine-menthoL 15-3.6 mg per lozenge 1 lozenge (CEPACOL) 1 lozenge, oral, As needed, sore throat, Starting on Tue09/09/23 at 1052 cefTRIAXone in dextrose (iso osm) IVPB 2 g (ROCEPHIN) 2 g, intravenous, at 200 mL/hr, Administer over 15 Minutes, Every 24 hours, First dose on Tue09/10/23 at 1130, Drug Monitoring Program: Pharmacist to adjust medication dosing based on indication and drug clearance factors., Indications: Lower UTI, catheter New Bag 09/11/2023 12:29 PM CDT 2 g 200 mL/hr New Bag 09/10/2023 12:29 PM CDT 2 g 200 mL/hr clopidogreL tablet 75 mg (PLAVIX) 75 mg, oral, Every morning, First dose on Tue09/14/23 at 0900 Given 09/15/2023 9:04 AM CDT 75 mg Given 09/14/2023 9:22 AM CDT 75 mg diazePAM tablet 5 mg (VALIUM) 5 mg, oral, 3 times daily PRN, muscle spasms, Starting on Tue09/09/23 at 2224 Given 09/09/2023 10:47 PM CDT 5 m g enzalutamide capsule 120 mg (XTANDI) 120 mg, oral, Daily, First dose on Tue09/10/23 at 0900, HAZARDOUS - Handle with care. Swallow whole. Do NOT crush, chew or open capsule. Given 09/15/2023 9:04 AM CDT 120 mg Given 09/14/2023 9:22 AM CDT 120 mg Given 09/13/2023 10:14 AM CDT 120 mg fentaNYL injection 25 mcg (SUBLIMAZE) 25 mcg, intravenous, Every 2 min PRN, sedation, Administer over 1 minute immediately prior to the procedure. May repeat every 2 minutes to a maximum of 200 mcg, until pain score of 3 or less, or until the patient meets the pain comfort goal, or RASS 0 to -2. Do not give if respiratory rate is less than 8 breaths/minute., Starting on Tue09/13/23 at 1402, For 3 hours, Intraprocedure (RAD) Given 09/13/2023 2:12 PM CDT 25 mcg Given 09/13/2023 2:09 PM CDT 25 mcg Given 09/13/2023 2:06 PM CDT 25 mcg heparin (porcine) 1,000 unit/mL injection 2,600 Units 2,600 Units (rounded from 2,604 Units = 30 Units/kg ? 86.8 kg Dosing weight), intravenous, As needed, antiXa 0.1-0.19, Starting on Tue09/13/23 at 2100, Intensity type: Moderate, Anti-Xa < 0.1: Loading Dose (Units/kg): 60, Anti-Xa 0.1-0.19: Loading Dose (Units/kg): 30, Anti-Xa > 0.19: Loading Dose (Units/kg): 0 Given 09/14/2023 5:50 AM CDT 2,600 Units heparin (porcine) 100 Units/mL in NaCl 0.45% 250 mL infusion 11 Units/kg/hr ? 86.8 kg Dosing weight (9.548 mL/hr, rounded to 9.55 mL/hr), intravenous, Continuous, Starting on Tue09/09/23 at 1730, For 3 days 11 hours, 25,000 Units in 250 mL, Pharmacist to [...] 6 hours after heparin resumed New Bag 09/13/2023 1:59 AM CDT 11 Units/kg/hr 9.55 mL/hr New Bag 09/11/2023 11:28 PM CDT 11 Units/kg/hr 9.55 mL/ hr Rate/Dose Verify 09/11/2023 7:44 AM CDT 11 Units/kg/hr 9.5 5 mL/hr heparin (porcine) 100 Units/mL in NaCl 0.45% 250 mL infusion 0-30 Units/kg/hr ? 86.8 kg Dosing weight (0-26.04 mL/hr), intravenous, Continuous, Starting on Tue09/13/23 at 2100, 25,000 Units in 250 mL, Intensity type: Moderate, Starting Dose (units/kg/hr): 12, Anti-Xa < 0.1: Adjust Dose (Units/kg/hr) by: 4, Anti-Xa < 0.1: Loading Dose (Units/kg): 60, Anti-Xa < 0.1: Repeat anti-Xa: 6 hours, Anti-Xa 0.1-0.19: Adjust Dose (Units/kg/hr) by: 2, Anti-Xa 0.1-0.19: Loading Dose (Units/kg): 30, Anti-Xa 0.1-0.19: Repeat anti-Xa: 6 hours, Anti-Xa 0.2-0.5: Adjust Dose (Units/kg/hr) by: 0, Anti-Xa 0.2-0.5: Repeat anti-Xa: 6 hours. If two consecutive therapeutic result, re-check next AM., Anti-Xa > 0.19: Loading Dose (Units/kg): 0, Anti-Xa 0.51-0.6: Adjust Dose (Units/kg/hr) by: -1, Anti-Xa 0.51-0.6: Repeat anti-Xa: 6 hours, Anti-Xa 0.61-0.9: Hold Infusion: Stop infusion for 1 hour, Anti-Xa 0.61-0.9: Adjust Dose (Units/kg/hr) by: -2, Anti-Xa 0.61-0.9: Repeat anti-Xa: 6 hours after Heparin resumed, Anti-Xa >0.91: Hold Infusion: Stop infusion for 2 hours, Anti-Xa >0.91: Adjust Dose (Units/kg/hr) by: -4, Anti-Xa >0.91: Repeat anti-Xa: 6 hours after Heparin resumed New Bag 09/14/2023 5:48 AM CDT 14 Units/kg/hr 12.2 mL/hr New Bag 09/13/2023 9:12 PM CDT 12 Units/kg/hr 10.4 mL/ hr iohexoL 300 mg iodine/mL solution (OMNIPAQUE) As needed, Starting on Tue09/13/23 at 1419, Intra-Op Given 09/13/2023 2:19 PM CDT 30 mL Lactated Ringer's 20 mL/hr, intravenous, Once as needed, to keep vein open, Starting on Tue09/13/23 at 1402, For 1 dose, Intraprocedure (RAD) New Bag 09/13/2023 2:06 PM CDT 20 mL/hr 20 mL/hr lidocaine-sodium bicarbonate (buffered) 0.9%-0.84% injection infiltration, As needed, Starting on Tue09/13/23 at 1419, Intra-Op Given 09/13/2023 2:19 PM CDT 7 mL metoprolol succinate 24 hr tablet 50 mg (TOPROL-XL) 50 mg, oral, Daily at bedtime, First dose on Tue09/09/23 at 2100, Do NOT crush or chew. Tablet may be split on score if needed. Given 09/14/2023 9:02 PM CDT 50 mg Given 09/13/2023 9:06 PM CDT 50 mg Given 09/12/2023 9:26 PM CDT 50 mg midazolam (PF) injection 0.5 mg (VERSED) 0.5 mg, intravenous, Every 2 min PRN, sedation, RASS -1, Starting on Tue09/13/23 at 1402, For 3 hours, Intraprocedure (RAD), May repeat every 2 minutes for a maximum of 5 mg. Do not give if respiratory rate is less than 8 breaths/minute. Given 09/13/2023 2:12 PM CDT 0.5 mg midazolam (PF) injection 1 mg (VERSED) 1 mg, intravenous, Every 2 min PRN, sedation, RASS 0, Starting on Tue09/13/23 at 1402, For 3 hours, Intraprocedure (RAD), May repeat every 2 minutes for a maximum of 5 mg. Do not give if respiratory rate is less than 8 breaths/minute. Given 09/13/2023 2:09 PM CDT 1 mg Given 09/13/2023 2:06 PM CDT 1 mg NaCl 0.9 % irrigation solution 3,000 mL 3,000 mL, irrigation, Continuous, Starting on 09/10/23 at 0430, FOR BLADDER IRRIGATION ONLY, NOT FOR IV USE New Bag 09/10/2023 3:07 AM CDT 3,000 mL NaCl 0.9 % irrigation solution 3,000 mL 3,000 mL, irrigation, Continuous, Starting on 09/10/23 at 0430, FOR BLADDER IRRIGATION ONLY, NOT FOR IV USE New Bag 09/10/2023 5:40 PM CDT 3,000 mL New Bag 09/10/2023 5:38 PM CDT 3,000 mL New Bag 09/10/2023 7:57 AM CDT 3,000 mL naloxone injection 0.2 mg (NARCAN) 0.2 mg, intravenous, As needed, respiratory depression, Starting on Tue09/09/23 at 1051, For RASS Score -4 or less, respiratory rate of less than 8 breaths/min. Notify provider/service and rapid response team (if available at institution). ondansetron (PF) injection 4 mg (ZOFRAN) 4 mg, intravenous, Every 6 hours PRN, nausea, vomiting, Starting on Tue09/09/23 at 1052 rivaroxaban tablet 10 mg (XARELTO) 10 mg, oral, Every morning, First dose on Tue09/14/23 at 0900 Given 09/15/2023 9:04 AM CDT 10 mg Given 09/14/2023 9:22 AM CDT 10 mg rosuvastatin tablet 40 mg (CRESTOR) 40 mg, oral, Daily at bedtime, First dose on Tue09/09/23 at 2100 Given 09/14/2023 9:02 PM CDT 40 mg Given 09/13/2023 9:06 PM CDT 40 mg Given 09/12/2023 9:25 PM CDT 40 mg sennosides-docusate sodium 8.6-50 mg per tablet 1 tablet (SENOKOT-S) 1 tablet, oral, 2 times daily, First dose on Tue09/09/23 at 2100, Do not give if patient has diarrhea. Given 09/13/2023 9:06 PM CDT 1 tablet Given 09/13/2023 10:14 AM CDT 1 tablet Given 09/12/2023 9:25 PM CDT 1 tablet sodium chloride 0.9 % injection 10 mL 10 mL, intravenous, As needed, line care, Starting on Tue09/09/23 at 1051, Peripheral Intravenous Catheter and Rapid Infusion Catheter, prior to blood sampling, post blood transfusion or post blood sampling sodium chloride 0.9 % injection 3 mL 3 mL, intravenous, As needed, line care, Starting on Tue09/09/23 at 1051, Prior to and following infusion and between multiple consecutive infusions: sodium chloride 0.9 % injection sodium chloride 0.9 % injection 3 mL 3 mL, intravenous, Every 12 hours scheduled, First dose on Tue09/09/23 at 2100, Peripheral Intravenous Catheter and Rapid Infusion Catheter, when no infusion to maintain patency Given 09/15/2023 9: 04 AM CDT 3 mL Given 09/14/2023 9:03 PM CDT 3 mL Given 09/14/2023 9:22 AM CDT 3 mL sulfamethoxazole-trimethoprim 800-160 mg per tablet 1 tablet (BACTRIM DS) 1 tablet, oral, Every 12 hours scheduled, First dose on Tue09/12/23 at 0900, For 5 days, Drug Monitoring Program: Pharmacist to adjust medication dosing based on indication and drug clearance factors., Indications: Lower UTI, catheter Given 09/15/2023 9:04 AM CDT 1 tablet Given 09/14/2023 9:02 PM CDT 1 tablet Given 09/14/2023 9:22 AM CDT 1 tablet technetium Tc 99m succimer injection (Tc-99m DMSA) 2.7-3.3 millicurie, intravenous, Once, On Tue09/12/23 at 1000, For 1 dose, Imaging Protocol Orders Given 09/12/2023 9:35 AM CDT 3.3 millicuries Right Antecubital trospium tablet 20 mg (SANCTURA) 20 mg, oral, 2 times daily before breakfast and dinner, First dose on Tue09/09/23 at 1600, Administer with water at least 1 hr prior to meals., Restriction Criteria (Pharmacy will review and approve if criteria met): Use in patients 65 years of age or older Given 09/15/2023 9:04 AM CDT 20 mg Given 09/14/2023 9:02 PM CDT 20 mg Given 09/14/2023 5:51 AM CDT 20 mg documented in this encounter Active and Recently Administered Medications Times are shown in CDT. Scheduled Medication Order 09/13/2023 09/14/2023 09/15/2023 clopidogreL tablet 75 mg (PLAVIX) 75 mg, oral, Every morning, First dose on Tue09/14/23 at 0900 09 (Given - Provider: Brittanie Lewis R.N.) 903 (Given - Provider: Brittanie Lewis R.N.) enzalutamide capsule 120 mg (XTANDI) 120 mg, oral, Daily, First dose on Tue09/10/23 at 0900, HAZARDOUS - Handle with care. Swallow whole. Do NOT crush, chew or open capsule. 1013 (Given - Provider: Leonardo Clark R.N. - Comment: With Rodrigo MCCULLOUGH) 921 (Given - Provider: Brittanie Lewis R.N.) 903 (Given - Provider: Brittanie Lewis R.N.) metoprolol succinate 24 hr tablet 50 mg (TOPROL-XL) 50 mg, oral, Daily at bedtime, First dose on Tue09/09/23 at 2100, Do NOT crush or chew. Tablet may be split on score if needed. 2105 (Given - Provider: Lilia hWitney R.N.) 2101 (Given - Provider: Brittanie Lewis R.N.) rivaroxaban tablet 10 mg (XARELTO) 10 mg, oral, Every morning, First dose on Tue09/14/23 at 0900 0922 (Given - Provider: Brittanie Lewis R.N.) 903 (Given - Provider: Brittanie Lewis R.N.) rosuvastatin tablet 40 mg (CRESTOR) 40 mg, oral, Daily at bedtime, First dose on Tue09/09/23 at 2100 2105 (Given - Provider: Lilia Whitney R.N.) 2101 (Given - Provider: Brittanie Lewis R.N.) sennosides-docusate sodium 8.6-50 mg per tablet 1 tablet (SENOKOT-S) 1 tablet, oral, 2 times daily, First dose on Tue09/09/23 at 2100, Do not give if patient has diarrhea. 1014 (Given - Provider: Leonardo Clark R.N.)2105 (Given - Provider: Lilia Whitney R.N.) 09 (Not Given - Provider: Brittanie Lewis R.N. - Reason: Other)2102 (Not Given - Provider: Brittanie Lewis R.N. - Reason: Patient/family refused) 903 (Not Given - Provider: Brittanie Lewis R.N. - Reason: Patient/family refused) sodium chloride 0.9 % injection 3 mL 3 mL, intravenous, Every 12 hours scheduled, First dose on Tue09/09/23 at 2100, Peripheral Intravenous Catheter and Rapid Infusion Catheter, when no infusion to maintain patency 1015 (Given - Provider: Leonardo Clark R.N.)2105 (Given - Provider: Lilia Whitney R.N.) 921 (Given - Provider: Brittanie Lewis R.N.)2102 (Given - Provider: Brittanie Lewis R.N.) 09 (Given - Provider: Brittanie Lewis R.N.) sulfamethoxazole-trime thoprim 800-160 mg per tablet 1 tablet (BACTRIM DS) 1 tablet, oral, Every 12 hours scheduled, First dose on Tue09/12/23 at 0900, For 5 days, Drug Monitoring Program: Pharmacist to adjust medication dosing based on indication and drug clearance factors., Indications: Lower UTI, catheter 1014 (Given - Provider: Leonardo Clark R.N.)2105 (Given - Provider: Lilia Whitney R.N.) 09 (Given - Provider: Brittanie Lewis R.N.)2101 (Given - Provider: Brittanie Lewis R.N.) 09 (Given - Provider: Brittanie Lewis R.N.) trospium tablet 20 mg (SANCTURA) 20 mg, oral, 2 times daily before breakfast and dinner, First dose on Tue09/09/23 at 1600, Administer with water at least 1 hr prior to meals., Restriction Criteria (Pharmacy will review and approve if criteria met): Use in patients 65 years of age or older 0511 (Given - Provider: Lilia Whitney R.N.)1659 (Given - Provider: Leonardo Clark R.N.) 0551 (Given - Provider: Lilia Whitney R.N.)2102 (Given - Provider: Brittanie Lewis R.N.) 0904 (Given - Provider: Brittanie Lewis R.N. - Comment: Pt requested to have medication retimed to be along with his other AM meds.)1600 (Due) Continuous Medication Order 09/13/2023 09/14/2023 09/15/2023 heparin (porcine) 100 Units/mL in NaCl 0.45% 250 mL infusion (CANCELED) 11 Units/kg/hr ? 86.8 kg Dosing weight (9.548 mL/hr, rounded to 9.55 mL/hr), intravenous, Continuous, Starting on Tue09/09/23 at 1730, For 3 days 11 hours, 25,000 Units in 250 mL, Pharmacist to [...] Repeat aPTT 6 hours after heparin resumed 0159 (New Bag - Provider: Lilia Whitney R.N.)0736 (Stopped - Provider: Leonardo Clark R.N.) heparin (porcine) 100 Units/mL in NaCl 0.45% 250 mL infusion (CANCELED) 0-30 Units/kg/hr ? 86.8 kg Dosing weight (0-26.04 mL/hr), intravenous, Continuous, Starting on Tue09/13/23 at 2100, 25,000 Units in 250 mL, Intensity type: Moderate, Starting Dose (units/kg/hr): 12, Anti-Xa < 0.1: Adjust Dose (Units/kg/hr) by: 4, Anti-Xa < 0.1: Loading Dose (Units/kg): 60, Anti-Xa < 0.1: Repeat anti-Xa: 6 hours, Anti-Xa 0.1-0.19: Adjust Dose (Units/kg/hr) by: 2, Anti-Xa 0.1-0.19: Loading Dose (Units/kg): 30, Anti-Xa 0.1-0.19: Repeat anti-Xa: 6 hours, Anti-Xa 0.2-0.5: Adjust Dose (Units/kg/hr) by: 0, Anti-Xa 0.2-0.5: Repeat anti-Xa: 6 hours. If two consecutive therapeutic result, re-check next AM., Anti-Xa > 0.19: Loading Dose (Units/kg): 0, Anti-Xa 0.51-0.6: Adjust Dose (Units/kg/hr) by: -1, Anti-Xa 0.51-0.6: Repeat anti-Xa: 6 hours, Anti-Xa 0.61-0.9: Hold Infusion: Stop infusion for 1 hour, Anti-Xa 0.61-0.9: Adjust Dose (Units/kg/hr) by: -2, Anti-Xa 0.61-0.9: Repeat anti-Xa: 6 hours after Heparin resumed, Anti-Xa >0.91: Hold Infusion: Stop infusion for 2 hours, Anti-Xa >0.91: Adjust Dose (Units/kg/hr) by: -4, Anti-Xa >0.91: Repeat anti-Xa: 6 hours after Heparin resumed 3295 (New Bag - Provider: Lilia Whitney R.N. - Comment: verified by JAMEL Rasmussen) 0548 (New Bag - Provider: Lilia Whitney R.N. - Comment: verified by JAMEL Deleon)0711 (Handoff - Provider: Lilia Whitney R.N. - Comment: verified by JAMEL Gu)0800 (Stopped - Provider: Brittnaie Lewis R.N.) NaCl 0.9 % irrigation solution 3,000 mL 3,000 mL, irrigation, Continuous, Starting on 09/10/23 at 0430, FOR BLADDER IRRIGATION ONLY, NOT FOR IV USE NaCl 0.9 % irrigation solution 3,000 mL 3,000 mL, irrigation, Continuous, Starting on 09/10/23 at 0430, FOR BLADDER IRRIGATION ONLY, NOT FOR IV USE PRN Medication Order 09/13/2023 09/14/2023 09/15/2023 acetaminophen tablet 1,000 mg (TYLENOL) 1,000 mg, oral, Every 6 hours PRN, mild pain or score 1-3 of 10, Starting on Tue09/09/23 at 1051, For mild pain, give acetaminophen before tramadol. alum-mag hydroxide-simeth 200-200-20 mg/5 mL suspension 30 mL (Maalox) 30 mL, oral, 4 times daily PRN, indigestion, Starting on Tue09/09/23 at 1052 bacitracin 500 unit/gram ointment packet 1 packet 1 packet (1 Application), topical, 3 times daily PRN, catheter irritaiton, Starting on Tue09/09/23 at 1128 benzocaine-menthoL 15-3.6 mg per lozenge 1 lozenge (CEPACOL) 1 lozenge, oral, As needed, sore throat, Starting on Tue09/09/23 at 1052 diazePAM tablet 5 mg (VALIUM) 5 mg, oral, 3 times daily PRN, muscle spasms, Starting on Tue09/09/23 at 2224 fentaNYL injection 25 mcg (SUBLIMAZE) (CANCELED) 25 mcg, intravenous, Every 2 min PRN, sedation, Administer over 1 minute immediately prior to the procedure. May repeat every 2 minutes to a maximum of 200 mcg, until pain score of 3 or less, or until the patient meets the pain comfort goal, or RASS 0 to -2. Do not give if respiratory rate is less than 8 breaths/minute., Starting on Tue09/13/23 at 1402, For 3 hours, Intraprocedure (RAD) 1406 (Given - Provider: Lars Chavez R.N.)1409 (Given - Provider: Lars Chavez R.N.)1412 (Given - Provider: Lars Chavez R.N.) heparin (porcine) 1,000 unit/mL injection 2,600 Units (CANCELED)(Linked Group 1) 2,600 Units (rounded from 2,604 Units = 30 Units/kg ? 86.8 kg Dosing weight), intravenous, As needed, antiXa 0.1-0.19, Starting on Tue09/13/23 at 2100, Intensity type: Moderate, Anti-Xa < 0.1: Loading Dose (Units/kg): 60, Anti-Xa 0.1-0.19: Loading Dose (Units/kg): 30, Anti-Xa > 0.19: Loading Dose (Units/kg): 0 0550 (Given - Provider: Lilia Whitney R.N.) iohexoL 300 mg iodine/mL solution (OMNIPAQUE) (COMPLETED) As needed, Starting on Tue09/13/23 at 1419, Intra-Op 1419 (Given - Provider: Jeffery Deluna M.D.) Lactated Ringer's (COMPLETED) 20 mL/hr, intravenous, Once as needed, to keep vein open, Starting on Tue09/13/23 at 1402, For 1 dose, Intraprocedure (RAD) 1406 (New Bag - Provider: Lars Chavez R.N.) lidocaine-sodium bicarbonate (buffered) 0.9%-0.84% injection (COMPLETED) infiltration, As needed, Starting on Tue09/13/23 at 1419, Intra-Op 1419 (Given - Provider: Jeffery Deluna M.D.) midazolam (PF) injection 0.5 mg (VERSED) (CANCELED) 0.5 mg, intravenous, Every 2 min PRN, sedation, RASS -1, Starting on Tue09/13/23 at 1402, For 3 hours, Intraprocedure (RAD), May repeat every 2 minutes for a maximum of 5 mg. Do not give if respiratory rate is less than 8 breaths/minute. 1412 (Given - Provider: Lars Chavez R.N.) midazolam (PF) injection 1 mg (VERSED) (CANCELED) 1 mg, intravenous, Every 2 min PRN, sedation, RASS 0, Starting on Tue09/13/23 at 1402, For 3 hours, Intraprocedure (RAD), May repeat every 2 minutes for a maximum of 5 mg. Do not give if respiratory rate is less than 8 breaths/minute. 1406 (Given - Provider: Lars Chavez R.N.)1409 (Given - Provider: Lars Chavez R.N.) naloxone injection 0.2 mg (NARCAN) 0.2 mg, intravenous, As needed, respiratory depression, Starting on Tue09/09/23 at 1051, For RASS Score -4 or less, respiratory rate of less than 8 breaths/min. Notify provider/service and rapid response team (if available at institution). ondansetron (PF) injection 4 mg (ZOFRAN) 4 mg, intravenous, Every 6 hours PRN, nausea, vomiting, Starting on Tue09/09/23 at 1052 sodium chloride 0.9 % injection 10 mL 10 mL, intravenous, As needed, line care, Starting on Tue09/09/23 at 1051, Peripheral Intravenous Catheter and Rapid Infusion Catheter, prior to blood sampling, post blood transfusion or post blood sampling sodium chloride 0.9 % injection 3 mL 3 mL, intravenous, As needed, line care, Starting on Tue09/09/23 at 1051, Prior to and following infusion and between multiple consecutive infusions: sodium chloride 0.9 % injection Linked Groups Order Group 1: heparin (porcine) 1,000 unit/mL injection 2,600 Units (CANCELED)Jump to med 2,600 Units (rounded from 2,604 Units = 30 Units/kg ? 86.8 kg Dosing weight), intravenous, As needed, antiXa 0.1-0.19, Starting on Tue09/13/23 at 2100, Intensity type: Moderate, Anti-Xa < 0.1: Loading Dose (Units/kg): 60, Anti-Xa 0.1-0.19: Loading Dose (Units/kg): 30, Anti-Xa > 0.19: Loading Dose (Units/kg): 0 Or heparin (porcine) 1,000 unit/mL injection 5,200 Units (CANCELED) 5,200 Units (rounded from 5,208 Units = 60 Units/kg ? 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
--- OUTSIDE RECORDS SUMMARY | 2023-09-16 08:58 | XMS_ITS | Encounter Summary ---
Author Organization [facility] Address [address] [place] [address] Care Team Providers Care Deicer Inspector Electric Name Role Phone Elsewhere, Pcp Primary Care Provider Unavailabl e Reason for Visit * Reason Comments Urinary Problem Rapid Heart Rate Encounter Details Date Type Department Care Team (Latest Contact Info) Description 08/30/2023 7:35 PM CDT - 09/05/2023 4:09 PM CDT Hospital Encounter [facility], First Floor [address] [place] [address] Kirstin Hughes M.D. [address] [place] [phone] Mayur Alvarez M.D. [address] [place] [phone] Hematuria (Primary Dx); Tachycardia; Hematuria Gross Discharge Disposition: Home-Health Care Svc Social History Tobacco Use Types Packs/Day Years Used Date Smoking Tobacco: Never Smokeless Tobacco: Never [facility] Utilities Answer Date Recorded In the past 12 months has th e electric, gas, oil, or water company threatened to shut off services in your home? No 09/05/2023 Humiliation, Afraid, Rape, and Kick questionnair e Answer Date Recorded Within the last year, have y ou been afraid of your partner or ex-partner? No 09/05/2023 Within the last year, have y ou been humiliated or emotionally abused in other ways by your partner or ex-partner? No Within the last year, have y ou been kicked, hit, slapped, or otherwise physically hurt by your partner or ex-partner? No 09/05/2023 Within the last year, have y ou been raped or forced to have any kind of sexual activity by your partner or ex-partner? No 09/05/2023 Hunger Vital Sign Answer Date Recorded Within the past 12 months, y ou worried that your food would run out before you got the money to buy more. Never true 09/05/19 24 Within the past 12 months, t he food you bought just didn't last and you didn't have money to get more. Never true 09/05/2023 PRAPARE - Transportation Answer Date Re corded In the past 12 months, has l ack of transportation kept you from medical appointments or from getting medications? No 08/10 In the past 12 months, has l ack of transportation kept you from meetings, work, or from getting things needed for daily living? No 09/05/2023 Nutrition Answer Date Recorded Nutrition: EVOO Fat Source 13 09/22 Nutrition: Servings of Fruits/Vegetables per Day Not on file 09/22/2018 Dental Answer Date Recorded Dental: Regular Dentist Unknown 05/30/19 21 Housing Stability Answer Date Recorded What is your living situation today? I have a [facility] place to live 09/05/2023 Sex and Gender Information Value Date Recorded Sex Assigned at Not on file Gender Identity Not on file Sexual Orientation Not on file documented as of this encounter Last Filed Vital Signs Vital Sign Reading Time Taken Comments Blood Pressure 144/72 09/05/2023 3:57 PM CDT Pulse 88 09/05/2023 3:57 PM CDT Temperature 36.7 ??C (98.1 ??F) 09/05/2023 3:57 PM CD T Respiratory Rate 16 09/05/2023 3:57 PM CDT Oxygen Saturation 97% 09/05/2023 3:57 PM CDT Inhaled Oxygen Concentration - - Weight - - Height 180.3 cm (5' 11) 08/30/2023 10:55 PM CDT Body Mass Index - - documented in this encounter Discharge Summaries * Botkin, Paula, M.D. - 09/05/2023 2:18 PM CDT DISCHARGE SUMMARY BRIEF OVERVIEW Hospital: [facility] Discharge Provider: Mayur Alvarez M.D. Primary Team: [facility] Urology Surgery - Chief Helga Rojas Primary Care Providers: Elsewhere, Pcp (General) No address on file Primary Care Provider Phone Number: None Primary Care Provider Fax Number: None Admission Date: 08/30/2023 Discharge Date: 09/05/23 PRINCIPAL DIAGNOSIS Hematuria SECONDARY DIAGNOSES Principal Problem: Hematuria Active Problems: Hematuria Gross Resolved Problems: * No resolved hospital problems. * Surgery Information This Encounter Past Procedures (09/05/2022 to Today) Date Procedures Providers Loc / Dept 08/31/2023 CYSTOSCOPY EVACUATION CLOTS, CYSTOSCOPY CYSTOGRAM Mayur Alvarez M.D.White, Lindsay A, M.D. [facility] ROMB OR DISCHARGE DISPOSITION Home-Health Care [place] [6] ACTIVE ISSUES REQUIRING FOLLOW UP OUTPATIENT FOLLOW UP For appointment details refer to your Patient Appointment Guide. TEST RESULTS PENDING AT DISCHARGE Pending Labs None DETAILS OF HOSPITAL STAY REASON FOR ADMISSION Tachycardia Hematuria Hematuria Gross HOSPITAL COURSE Mr. Vega is a pleasant [...] throughout the day yesterday on moderate-slow CBI On 09/02 we removed his catheter. He is incontinent at baseline. His urine has remained clear as wetransitioned from heparin drip to his home Xarelto. His plavix was restarted 09/04. HOSPITAL COURSE Following the procedure, the patient was transferred to general floor care in stable condition. Thepostoperative course was otherwise uneventful. By the time of dismissal, the patient was ambulatory, tolerating oral intake with no nausea/vomiting, and had pain controlled with oral medications. DISMISSAL PHYSICAL EXAM: General: Alert, oriented. No acute distress. Pulm: Non-labored respirations. Cardio: Regular rate and rhythm. Abdomen: Soft, non-tender, non-distended. Skin: No rashes. Extremities: Well perfused. No edema. Psychiatric: Appropriate affect. FOLLOW UP: -recommend recheck CBC in 1-2w with PCP -continue xarelto, plavix -staple removal in 1 week (every other staple removed today while inpatient) -our team will contact him to schedule november stent removal in October -wound care instructions for sacral wound included in his DC instrctions CONSULTS ORDERED DURING THIS ADMISSION IP CONSULT TO CARE MANAGEMENT IP CONSULT TO MEDICAL RECORDS DIRECTOR WOUND CARE IP CONSULT TO HYPERBARIC MEDICINE CONDITION AT DISCHARGE improved Discharge instructions were provided to the patient and caregiver(s). documented in this encounter Discharge Instructions * Patient Instructions* Carmen Louis, R.N. - 08/31/2023 9:44 AM CDT The Senior LinkAge Line?? is a service of the [place] [employer] in partnership with [place]'s Area Agencies on Aging. It is a free service of the [facility] that connects older [place] and their families with the help they need. Call the Senior LinkAge Line?? at: 274.736.4559 M-F, 8am-4:30pm to connect with specialists that are available to assist you with your specific needsor check out their website at [email or web address]://www.GadgetATM.zappit * Attachments The following attachments cannot be sent through Care Everywhere. * Cefdinir (By mouth) (Bolivian) documented in this encounter Medications at Time of Discharge Medication Sig Dispensed Refills Start Date End Date amLODIPine (NORVASC) 10 mg tablet Take 10 mg by mouth daily. Takes in the afternoon, 1 to 2 pm 01/11/2020 clopidogreL (PLAVIX) 75 mg tablet Take 75 [...] daily. Takes in the afternoon, 1-2 pm rosuvastatin (CRESTOR) 40 mg tablet Take 40 [...] Take 10 mg by mouth every morning. cholecalciferol (Vitamin D3) 50 mcg (2,000 Unit) tablet Take 50 mcg by mouth daily. iron,carbonyl-vitamin C (VITRON-C) 65 mg iron- [address] tablet Take 65 mg of iron by mouth every morning. Do not crush or chew. nitroglycerin (NITROSTAT) 0.[address] 0.4 mg under the tongue every 5 (five) minutes as needed for chest pain. If chest pain continues after 5 minutes, take the second dose and call 911 11/02/2019 bacitracin 500 unit/gram ointment Apply 1 Application topically 4 (four) times a day as needed (catheter irritaiton). Apply to tip of penis as needed for catheter irritation. 30 g 08/26/2023 09/09/2023 documented as of this encounter Progress Notes * Paula Hernandez M.D. - 09/05/2023 7:18 AM CDT UROLOGY CHIEF SERVICE PROGRESS NOTE SUBJECTIVE Kalen Vega was seen by the team during morning rounds. Feeling overall well this morning. Catheter removed 09/02, has had some pink tinge but overall clear yellow urine. Patient is incontinent at baseline. OBJECTIVE Vital signs: AVSS Physical Exam: General: No acute distress Neuro: Alert and oriented, no gross deficits. Cardiovascular: Regular rate. Pulmonary: Normal respiratory effort. Abdomen: Non-tender, non-distended. rayshawn in place Labs: Hemoglobin 9.6 today after receiving 1 unit PRBCs for hemoglobin 7.7 09/03 Cultures: Urine culture negative 09/02 Interval Imaging: no new ASSESSMENT AND PLAN: [...] throughout the day yesterday on moderate-slow CBI On 09/02 we removed his catheter. He is incontinent at baseline. His urine has remained clear as wetransitioned from heparin drip to his home Xarelto. Today we will restart his Plavix with tentativedischarge 09/05 if he continues to do well. 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, home Xarelto (holding since 08/11) --SubQ heparin initiated POD 0 --LE US obtained 5/8 PM due to patient's sustained tachycardia in the 1-2d prior, did show R DVT, unclear if acute or chronic --heparin drip discontinued, resumed home Xarelto, holding clopidogrel # E coli bacteremia -08/12 blood culture positive nunez susceptible E coli -repeat cultures 08/14 were negative -we will discontinue ceftriaxone 09/01 -repeat urine culture 09/02 negative # antiplatelet therapy -CAD status post cardiac stents -last dose of Plavix 08/29 -we are holding it for now # anemia, initially from acute blood loss - patient's hemoglobin has remained relatively stable, although it has drifted down to 7.7 today. Given significant cardiac history, we will transfuse for threshold of 8.0 PLAN: Added Plavix back today Anticipate discharge 09/05 Hospital Summary: Diet: Regular Activity: Ad kong DVT PPX: rivaroxaban GI PPX: None Bowel Regimen: Senna, MiraLax IVF: none Abx/Microbiology: Ucx 09/02 negative Pain Control: Tylenol, 2.5/5 oxycodone Home Meds Resumed: Enzalutamide, metoprolol, mirabegron, rosuvastatin, trospium, rivaroxaban Held Home Meds: none Consults: None Paula Hernandez M.D. 09/05/2023 Please page the Urology Chief Service with questions or concerns. Pager during business hours: [phone] Pager after hours: [phone] * Jeffery Valdez M.D. - 09/04/2023 10:34 AM CDT UROLOGY CHIEF SERVICE PROGRESS NOTE SUBJECTIVE Kalen Vega was seen by the team during morning rounds. Feeling overall well this morning. Catheter was removed yesterday. He still notes some very light pink staining of his urine, but no significant hematuria. OBJECTIVE Vital signs: AVSS Physical Exam: General: No acute distress Neuro: Alert and oriented, no gross deficits. Cardiovascular: Regular rate. Pulmonary: Normal respiratory effort. Abdomen: Non-tender, non-distended. rayshawn in place Labs: Hemoglobin 7.7 from 8.0 Cultures: Urine culture negative 09/02 Interval Imaging: no new ASSESSMENT AND PLAN: [...] exchange 08/15/2023 -status post clot evacuation 08/31/2023 -resume rivaroxaban today, holding clopidogrel -hyperbaric oxygen therapy team saw him 08/31 and do feel like he has a good candidate for this. 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, home Xarelto (holding since 08/11) --SubQ heparin initiated POD 0 --LE US obtained 5/8 PM due to patient's sustained tachycardia in the 1-2d prior, did show R DVT, unclear if acute or chronic --heparin drip discontinued, resumed home Xarelto, holding clopidogrel # E coli bacteremia -08/12 blood culture positive nunez susceptible E coli -repeat cultures 08/14 were negative -we will discontinue ceftriaxone 09/01 -repeat urine culture 09/02 negative # antiplatelet therapy -CAD status post cardiac stents -last dose of Plavix 08/29 -we are holding it for now # anemia, initially from acute blood loss - patient's hemoglobin has remained relatively stable, although it has drifted down to 7.7 today. Given significant cardiac history, we will transfuse for threshold of 8.0 PLAN: Discontinue heparin drip, resume home rivaroxaban, continue holding clopidogrel for now Plan to resume clopidogrel if urine remains clear on rivaroxaban Transfuse 1 unit PRBCs today given significant cardiac disease and hemoglobin 7.7; low concern for active bleeding Hospital Summary: Diet: Regular Activity: Ad kong DVT PPX: rivaroxaban GI PPX: None Bowel Regimen: Senna, MiraLax IVF: none Abx/Microbiology: Ucx 09/02 negative Pain Control: Tylenol, 2.5/5 oxycodone Home Meds Resumed: Enzalutamide, metoprolol, mirabegron, rosuvastatin, trospium, rivaroxaban Held Home Meds: Plavix Consults: None Jeffery Valdez M.D. 09/04/2023 10:45 AM CDT Please page the Urology Chief Service with questions or concerns. Pager during business hours: [phone] Pager after hours: [phone] * Jeffery Valdez M.D. - 09/03/2023 4:10 PM CDT UROLOGY CHIEF SERVICE PROGRESS NOTE SUBJECTIVE Kalen Vega was seen by the team during morning rounds. Feeling overall well this morning. Urine overnight charted as smith to yellow with CBI off. OBJECTIVE Vital signs: AVSS Physical Exam: General: No acute distress Neuro: Alert and oriented, no gross deficits. Cardiovascular: Regular rate. Pulmonary: Normal respiratory effort. Abdomen: Non-tender, non-distended. rayshawn in place : Clear urine with CBI off Labs: Hemoglobin 8.0 from 8.5 Cultures: Updated urine culture obtain due to significant recent urologic manipulation, pending Interval Imaging: no new ASSESSMENT AND PLAN: [...] Xarelto -hyperbaric oxygen therapy team saw him 08/31 and do feel like he has a good candidate for this. 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, home Xarelto (holding since 08/11) --SubQ heparin initiated POD 0 --LE US obtained 5/8 PM due to patient's sustained tachycardia in the 1-2d prior, did show R DVT, unclear if acute or chronic --holding home anticoagulation for now, on heparin drip # E coli bacteremia -08/12 blood culture positive nunez susceptible E coli -repeat cultures 08/14 were negative -we will discontinue ceftriaxone 09/01 -repeat urine culture 09/02 # antiplatelet therapy -CAD status post cardiac stents -last dose of Plavix 08/29 -we are holding it for now PLAN: Given crystal clear urine with CBI off this morning, catheter was removed Heparin drip increased to moderate intensity If urine remains clear tomorrow we will consider [facility] Diet: Regular Activity: Ad kong DVT PPX: Holding GI PPX: None Bowel Regimen: Senna, MiraLax IVF: LR 50 Abx/Microbiology: Ucx pending Pain Control: Tylenol, 2.5/5 oxycodone Home Meds Resumed: Enzalutamide, metoprolol, mirabegron, rosuvastatin, trospium Held Home Meds: Plavix, Xarelto Consults: None Jeffery Valdez M.D. 09/03/2023 10:45 AM CDT Please page the Urology Chief Service with questions or concerns. Pager during business hours: [phone] Pager after hours: [phone] * Paula Hernandez M.D. - 09/02/2023 6:25 [...] questions or concerns. Pager during business hours: [phone] Pager after hours: [phone] * Michelle Willams R.N., C.W.C.N. - 09/01/2023 11:43 AM CDT [facility] Wound RN consulted to assess Kalen [...] Secondary Dressing Status Clean;Dry;Intact Changed by Wound roll finisher Ongoing management Nursing;Wound/finished yarn examiner Urine Assessment Urine Color Colorless Hematuria Scale [place] Urine Appearance Clear;Sediment Head to toe skin [...] nursing. They agree to the plan. The [facility] RN will continue to see the patient, [...] update the patient. Son stated that a Geospatial Specialist visited the home and will be trying to assist both and patient with cares/coordination. OBJECTIVE Patient is located [facility] room 111. Referrals were sent to the following agencies: Home Medical Care - Admitted Since 08/30/2023 Service Provider Request Status Selected Services Address Phone Fax Patient Preferred [facility] [place] Pending - Request Sent N/A [address], [facility] [phone] -- [facility] Care Pending - Request Sent N/A [address] [facility] [address], [facility] [address] [phone] -- Home Health Care Pending - Request Sent N/A [address], [facility] [address] [phone] -- [facility] Pending - Request Sent N/A [address] [facility] [phone] -- [facility] Pending - Request Sent N/A [address] [facility] [phone] -- [facility] Pending - Request Sent N/A [address] [facility] [address], [facility] [address] [phone] -- [facility] Health Declined Facility Full N/A [address] [facility] [id number] -- ASSESSMENT / PLAN ASSESSMENT Reimbursement Rep attempted to contact patient on room phone but was unable to get through. Case Manageras able to reach his son who will update that patient that the preferred home health agency was unable to accept and that referrals would be sent to other home health agencies. Requested services arenursing for wound care and catheter and PT/OT. PLAN Reimbursement Rep will follow up with referrals. Case Manger [...] questions or concerns. Pager during business hours: [phone] Pager after hours: [phone] * Paula Hernandez M.D. - 08/31/2023 10:45 [...] risks associated with surgery and anesthesia including RI, stroke, and VTE were also discussed. Finally, [...] questions or concerns. Pager during business hours: [phone] Pager after hours: [phone] Associated attestation - Mayur Alvarez M.D. - 08/31/2023 12:14 PM CDT I agree with the Urology Chief Service plan for palliative cystoscopy under anesthesia, clot evacuation, proceed as indicated. We will plan for judicious irrigation given his recent bladder surgery and we will perform a cystogram at the end of the procedure. * Demarco Salazar, Pharm.D., R.Ph., [facility] - 08/31/2023 7:19 AM CDT Images from [...] discontinuation of antibiotics. Pedrito Salazar Pharm.D., R.Ph., [facility] Admission Medication History Note Adherence issues: No [...] Complete Set By: Demarco Salazar Pharm.D., R.Ph., [facility] at 08/31/2023 7:22 AM Taking? Last Dose [...] an 83 y.o. male transferred to the [facility] ED for further management of [...] for CBI. He was then transferred to [facility] on 08/12; a CT cystogram [...] was initiated on CBI and transferred to [facility] for further management. 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 Urinary bladder ultrasound showing 5 cm clot burden; catheter draining on fast-rate CBI after multiple rounds of hand irrigation. Plan - Continue CBI - Q2h hr hand irrigations - NPO overnight pending am re-evaluation - Hold Plavix, Xarelto for now The above was discussed with Drs. Venegas and Lefty, the chief urology residents client support professional. Please page chief Urology Service [place] [phone] [place] [phone] afterhours. documented in this encounter Procedure Notes * Leonardo Kellogg RJonahN. - 08/30/2023 8:00 PM CDT Procedures documented [...] androgen deprivation therapy. 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 No scuba diving experience. Electronic health record [...] prolonged inpatient stay, would request transfer to [facility] prior to initiation of hyperbaric oxygen therapy. [...] Early Screen for Discharge Planning Referral Name: ESDP 11 Referral Reason: Discharge Planning Primary Language: Bolivian Therapeutic Support Staff Services Used: No Person(s) present during interview: Person(s) Present During Interview: patient and child Kar History of Present Illness #1 Hematuria Social History Support System: spouse, children, and home care staff Primary Caregiver: self and family Finance/Insurance Primary insurance: MEDICARE A AND B Secondary insurance: [employer] benefits: No Advance Directives Legal Decision Maker: Self Advance Directives: N/A Advance Directives Status: N/A OBJECTIVE Baseline Functional Status Baseline Activities of Daily Living Mobility: Requires aide of device Dressing: Independent Feeding: Independent Bathing: Independent Grooming: Independent Toileting: Independent Behavior: Appropriate, Pleasant, Calm, Cooperative, Oriented Communication: Can write, Talks, Understands speaking, Understands [place]ian, Reads Shopping: Needs assistance Medication Management: Independent Housekeeping: Needs assistance Meal Prep: Independent Assistive Devices: Walker - front wheeled, Eyeglasses, Hearing aid(s) Agency Name: [id number] Health Services Provided: Nursing Home/PT/OT Transportation: Support from family Baseline Services/Resources Primary care clinic and provider: ELSEWHERE, PCP Additional Resources: N/A Anticipated Needs Functional Status: Housekeeping, Shopping, Transportation use (drive car, use taxi/bus), Mobility, Transfer to/from bed, chair, etc., Bathing Assistive Devices: Eyeglasses, Hearing aid(s), Walker - front wheeled Services/Resources: Home health Agency Name: [facility] Provided: Nursing Home/PT/OT Anticipated Modifications to the Patient's Home: None Transportation Needs: Support from family Does the patient need discharge transport arranged?: No Anticipated Discharge Destination: [facility]-Health Care [place] ASSESSMENT / PLAN Assessment: The baking assistant met with Kalen Vega to discuss his current hospitalization and home goingneeds. The patient was accompanied by son, Kar . The patient was a reliable historian. The role ofRN Reimbursement Rep was reviewed. The patient reviewed his prior level of care and support system. The patient receives support from his and children. The patient described his living environment as a home with bedroom and bathroom on same floor withstairs to enter with rails. Housekeeping, grocery shopping, meal prep, and other household responsibilities have previously been completed by patient and patient's son. baking assistant discussed the patient's potential needs at dismissal based on their home setting, previous needs and responsibilities, homebound status, and relevant assessments with the patient. The patient will be safe and supported to return home with [facility] or previous services noted above when [...] [facility]. Patient stated that [facility] was supposed to be set- up at discharge after the last hospital stay but that the company never received orders to start care and that he was told by nursing that due to his PICC removal he would not need care. Reimbursement Rep will clarifywith home health team regarding if [...] chart and meeting with the patient, the baking assistant deemed the LACE+/readmission questions were appropriate. The [...] current readmission could have been prevented. The baking assistant will share this information with the care team. The patient reports understanding that he will dismiss from the hospital when medically stable. Thefollowing potential barriers to dismissal have been identified: Home Health Care Addendum 1230: Reimbursement Rep called [facility]. They received the referral but declined due to being at capacity. Plan: The patient agrees with the following plan. Patient's anticipated discharge disposition is: Home with Home Healthcare Referrals sent. Transportation upon dismissal will be provided by family--Kar . baking assistant recommended home health services. baking assistant provided information regarding the dismissal process and the Senior Linkage Line ([place] Board on Aging) handout. baking assistant placed or requested the following hospital-based consult orders and/or referrals: None. baking assistant will follow up with the patient to [...] with updates and/or transition plan to come. baking assistant encouraged the patient to reach out with any questions/concerns. Care Management will continue to follow. Signed by: Carmen Louis R.N. 08/31/2023 documented in this encounter Nursing Notes * Vanessa Leo R.N. - 09/05/2023 4:07 PM CDT Shift Goals: Clinical Goals for the Shift: Kalen will remain safe and free from falls durig my shift Identify possible barriers to meeting goals/advancing plan of care: none End of Shift Summary: Son educated and demonstrated wound care with out problem. PIV removed. Written and verbal instructions given to pt and family. Pt discharged to home. documented in this encounter OR Notes * Op Note - Sima Venegas M.D. 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 5. Placement of [address] catheter with 20 cc in [...] The resectoscope was removed and a [address] catheter was placed with 20 [...] (!) 26 Blood Pressure 08/30/231944 133/73 SpO2 05/21/24 1945 97 % Pain Score 08/30/231947 0 - [...] including history, physical exam, orders, and plan. [place] with the note of the resident. Kirstin [...] secondary to cystostomy closure presenting today from [facility] with concerns for worsening hematuria. He was [...] outside ED records. ED Course as of 08/30/232209e August 30, [id number] US Urinary Bladder There is [...] 08/30/2023 8:48 AM CDT Pt transferred [facility] via EMS, pt c/o blocked jon cath that started today. Pt had a right uretal stent exchange and an open bladder repair 08/15/23 and was discharged 08/25. Pt had a3 way jon placed at [facility], and transferred here because the clots returned. Chelsea Argueta R.N. 08/30/232027 documented in this encounter Miscellaneous Notes * Documentation Clarification - Paula Hernandez M.D. - 09/05/2023 4:09 PM CDT PROVIDER RESPONSE TEXT: To clarify, the appropriate diagnosis supported by the clinical indicators: Hematuria contributed to by Xarelto & Plavix <LCI> QUERY TEXT: DOCUMENTATION CLARIFICATION REQUEST Please clarify/specify the appropriate diagnosis supported in the clinical indicators below. Hematuria contributed to by Xarelto & Plavix Other (explain) Clinically unable to determine (explain) 83-year-old gentleman who was supposed to be a direct admission in the setting of worsening hematuria not responsive to continue bladder irrigation secondary to clot retention. 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 - PN, 08-[address] Vega Urinary catheter has thick red drainage that is very slow and I am concerned there are clots in thebladder. -08-29 ED Provider Notes by Shannan Correa D.O., M.H.A. PN, 08-[address] Hernandez: -Last dose of Plavix was 08/29, Last dose of Xarelto was 08/28. -We discussed options for management today. -Overnight ultrasound showed approximately 5 cm of clot in the bladder. Our team hand irrigated with 3 L as well as catheter technicians continued to irrigate. We are not able to get this volume of clot out. The patient continues to bleed this morning. -OR today for cystoscopy, clot evacuation -holding Xarelto, holding Plavix Please contact me if you have questions. 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 - 09/05/2023 2:15 PM CDT Mr. Vega is a pleasant 83 [...] throughout the day yesterday on moderate-slow CBI On 09/02 we removed his catheter. He is incontinent at baseline. His urine has remained clear as wetransitioned from heparin drip to his home Xarelto. His plavix was restarted 09/04. HOSPITAL COURSE Following the procedure, the patient was transferred to general floor care in stable condition. Thepostoperative course was otherwise uneventful. By the time of dismissal, the patient was ambulatory, tolerating oral intake with no nausea/vomiting, and had pain controlled with oral medications. DISMISSAL PHYSICAL EXAM: General: Alert, oriented. No acute distress. Pulm: Non-labored respirations. Cardio: Regular rate and rhythm. Abdomen: Soft, non-tender, non-distended. Skin: No rashes. Extremities: Well perfused. No edema. Psychiatric: Appropriate affect. FOLLOW UP: -recommend recheck CBC in 1-2w with PCP -continue xarelto, plavix -staple removal in 1 week (every other staple removed today while inpatient) -our team will contact him to schedule november stent removal in October -wound care instructions for sacral wound included in his DC instrctions documented in this encounter Plan of Treatment Upcoming Encounters Date Type Department Care Team (Late st Contact Info) Description 10/14/2023 1:00 PM CDT Procedure visit Department of [place] in [place] [address] [place] [phone] Paula Hernandez M.D. [address] [place] [phone] Pending Results Name Type Priority Associated Diagnoses Date /Time Prepare Red Blood Cells, 1 Units Blood Bank Routine 08/30/2023 9:50 PM CDT Prepare Red Blood Cells, 1 Units Blood Bank Routine 09/04/2023 10:59 AM CDT documented as of this encounter Procedures Procedure Name Priority Date/Time Associated Diagnosis Comments POTASSIUM, S/P Routine 09/05/2023 4:56 AM CDT BASIC METABOLIC PANEL, S/P Routine 09/05/2023 4:52 AM CDT CBC WITHOUT DIFFERENTIAL, B Routine 09/04/2023 8:15 PM CDT BASIC METABOLIC PANEL, S/P Routine 09/04/2023 8:15 PM CDT TRANSFUSE RED [...] OXYGEN THERAPY Routine 09/03/2023 8:00 AM CDT HEPARIN LEVEL ANTI-XA ASSAY, P Timed 09/03/2023 3:29 AM CDT CBC WITHOUT DIFFERENTIAL, B Timed 09/03/2023 3:29 AM CDT ADULT OXYGEN [...] CDT documented in this encounter Results * Potassium (09/05/2023 4:56 AM CDT) Potassium, S 3.6 3.6 - 5.2 mmol/L 09/05/2023 5:49 AM CDT DTL Blood (Blood, Venous) 09/05/2023 4:56 AM CDT 09/05/2023 5:22 AM CDT Roxy Romero M.D. LAB BLOOD ADD-ON [facility] [address] [place] [address], [facility] [place] [address] [place] [address] * (ABNORMAL) Basic Metabolic Panel (09/05/2023 4:52 AM CDT) Potassium, S 3.6 3.6 - 5.2 mmol/L 09/05/2023 7:09 AM CDT DTL Sodium, S 141 135 - 145 mmol/L 09/05/2023 7:09 AM CDT DTL Chloride, S 105 98 - 107 mmol/L 09/05/2023 7:09 AM CDT DTL Bicarbonate, S 23 22 - 29 mmol/L 09/05/2023 7:09 AM CDT DTL Anion Gap 13 7 - 15 09/05/2023 7:09 AM CDT DTL BUN (Blood Urea Nitrogen), S 12 8 - 24 mg/dL 09/05/2023 7:09 AM CDT DTL Creatinine 1.03 0.74 - 1.35 mg/dL 09/05/2023 7:09 AM CDT DTL Estimated GFR (eGFR) 72 >=60 mL/min/BSA 09/05/2023 7:09 AM CDT DTL Comment: Estimated GFR calculated using the 2020 CKD_EPI creatinine equation. Calcium, Total, S 8.0(L) 8.8 - 10.2 mg/dL 09/05/2023 7:09 AM CDT DTL Glucose, S 106 70 - 140 mg/dL 09/05/2023 7:09 AM CDT DTL Blood (Blood, Venous) 09/05/2023 4:52 AM CDT 09/05/2023 6:46 AM CDT Jakob De Paz M.D. LAB BLOOD ADD-ON [facility] [address] [place] [address], [facility] [address] [place] [address] * (ABNORMAL) Basic Metabolic Panel (09/04/2023 8:15 PM CDT) Potassium, S 3.2(L) 3.6 - 5.2 mmol/L 09/04/2023 9:28 PM CDT DTL Sodium, S 142 135 - 145 mmol/L 09/04/2023 9:28 PM CDT DTL Chloride, S 106 98 - 107 mmol/L 09/04/2023 9:28 PM CDT DTL Bicarbonate, S 24 22 - 29 mmol/L 09/04/2023 9:28 PM CDT DTL Anion Gap 12 7 - 15 09/04/2023 9:28 PM CDT DTL BUN (Blood Urea Nitrogen), S 12 8 - 24 mg/dL 09/04/2023 9:28 PM CDT DTL Creatinine 1.05 0.74 - 1.35 mg/dL 09/04/2023 9:28 PM CDT DTL Estimated GFR (eGFR) 70 >=60 mL/min/BSA 09/04/2023 9:28 PM CDT DTL Comment: Estimated GFR calculated using the 2020 CKD_EPI creatinine equation. Calcium, Total, S 8.1(L) 8.8 - 10.2 mg/dL 09/04/2023 9:28 PM CDT DTL Glucose, S 100 70 - 140 mg/dL 09/04/2023 9:28 PM CDT DTL Blood (Blood, Venous) 09/04/2023 8:15 PM CDT 09/04/2023 9:11 PM CDT Jeffery Valdez M.D. LAB BLOOD ADD-ON [facility] [place] [address] [place] [address], [facility] [address] [address] * (ABNORMAL) CBC without Differential (09/04/2023 8:15 PM CDT) Hemoglobin 9.6(L) 13.2 - 16.6 g/dL 09/04/2023 9:19 PM CDT DHPM Hematocrit 30.4(L) 38.3 - 48.6 % 09/04/2023 9:19 PM CDT DHPM Erythrocytes 3.48(L) 4.35 - 5.65 x10(12)/L 09/04/2023 9:19 PM CDT DHPM MCV 87.4 78.2 - 97.9 fL 09/04/2023 9:19 PM CDT DHPM RBC Distrib Width 17.3(H) 11.8 - 14.5 % 09/04/2023 9:19 PM CDT DHPM Platelet Count 306 135 - 317 x10(9)/L 09/04/2023 9:19 PM CDT [facility] Leukocytes 7.5 3.4 - 9.6 x10(9)/L 09/04/2023 9:19 PM CDT [facility] Blood (Blood, Venous) 09/04/2023 8:15 PM CDT 09/04/2023 8:52 PM CDT Jeffery Valdez M.D. LAB BLOOD ADD-ON [facility] [address] [place] [address], [facility] [address] [place] [address] * Transfuse Red Blood Cells : (09/04/2023 3:30 PM CDT) Jeffery Valdez M.D. BLOOD TRANSFUSION OR DERABLES * Transfuse Red Blood Cells : , 1 Units (09/04/2023 3:30 PM CDT) Jeffery Valdez M.D. BLOOD TRANSFUSION OR DERABLES * Type and Screen (with Reflex Antibody ID) (09/04/2023 10:59 AM CDT) [facility] O Pos Not applicable 09/04/2023 11:46 AM CDT STRM Antibody Screen Negative Negative 09/04/2023 11:59 AM CDT STRM Type & Screen Expiration 09/07/2023 23:59 09/04/2023 11:46 AM CDT STRM Testing Location [place] DEFAULT 09/04/2023 11:21 AM CDT STR Blood (Blood, Venous) 09/04/2023 10:59 AM CDT 09/04/2023 11:21 AM CDT Jeffery Valdez M.D. LAB BLOOD BANK TEST ORDERABLES [facility] [address] [place] [address], [facility] [address] [place] [address] * Heparin Anti-Xa Assay (09/04/2023 7:34 AM CDT) Pathologist [facility] Heparin Anti-Xa, P 0.12 IU/mL 2023 8:14 AM CDT DTL Comment: UFH therapeutic range: [...] or unfractionated heparin (UFH). Blood (Blood, Venous) 09/04/2023 7:34 AM CDT 09/04/2023 7:56 AM CDT Mayur Alvarez M.D. LAB BLOOD NON A DD-ON [address] [address], [facility] [place] [address] [place] [address] * (ABNORMAL) CBC without Differential (09/04/2023 7:34 AM CDT) Pathologist [facility] Hemoglobin 7.7(L) 13.2 - 16.6 g/dL 09/04/2023 8:16 AM CDT DTL Hematocrit 24.6(L) 38.3 - 48.6 % 09/04/2023 8:16 AM CDT DTL Erythrocytes 2.75(L) 4.35 - 5.65 x10(12)/L 09/04/2023 8:16 AM CDT DTL MCV 89.5 78.2 - 97.9 fL 09/04/2023 8:16 AM CDT DTL RBC Distrib Width 16.0(H) 11.8 - 14.5 % 09/04/2023 8:16 AM CDT DTL Platelet Count 287 135 - 317 x10(9)/L 09/04/2023 8:16 AM CDT DTL Leukocytes 7.2 3.4 - 9.6 x10(9)/L 09/04/2023 8:16 AM CDT DT Blood (Blood, Venous) 09/04/2023 7:34 AM CDT 09/04/2023 8:06 AM CDT Paula Hernandez M.D. LAB BLOOD ADD-ON Performing Organization Address City/[facility] Co de Phone Number [facility] [address] [place], [place] [phone] [place] [address] 200 [place] [address] * Heparin Anti-Xa Assay (09/04/2023 12:30 AM CDT) Heparin Anti-Xa, P 0.27 IU/mL 2023 1:21 AM CDT DTL Comment: UFH therapeutic range: [...] or unfractionated heparin (UFH). Blood (Blood, Venous) 09/04/2023 12:30 AM CDT 09/04/2023 12:57 AM CDT Mayur Alvarez M.D. LAB BLOOD NON A DD-ON Performing Organization Address [facility] Co de Phone Number [facility] [address] [place] [address], [facility] [place] [address] [place] [address] * Bacterial Culture, Aerobic + Susceptibility, Urine (09/03/2023 10:50 AM CDT) [facility] Urine Culture No growth after 1 day of incubation. 09/04/2023 8:52 AM CDT DTL Urine (Urine, Indwelling Catheter) 09/03/2023 10:50 AM CDT 09/03/2023 11:53 AM CDT Comment:Specimen Source Site : Urine Jeffery Valdez M.D. LAB MICROBIOLOGY - G ENERAL ORDERABLES Performing Organization Address [facility] Co de Phone Number [facility] [address] [place], [place] [phone] [place] [address] DTL [facility] [address] [place] [address] * (ABNORMAL) CBC without Differential (09/03/2023 3:29 AM CDT) [facility] Hemoglobin 8.0(L) 13.2 - 16.6 g/dL [...] M.D. LAB BLOOD ADD-ON Performing Organization Address City/[facility]/ZIP Co de Phone Number [facility] [address] [place], [place] [address] [address] [place] [address] * Heparin Anti-Xa Assay (09/03/2023 3:29 AM CDT) Pathologist [facility] Heparin Anti-Xa, P 0.26 IU/mL 2023 4:07 AM CDT DT Comment: [...] Alvarez M.D. LAB BLOOD NON A DD-ON [facility] [address] [place], [place] [phone] [place] [address] 200 [place] [address] * Heparin Anti-Xa Assay (09/02/2023 2:57 AM CDT) [facility] Heparin Anti-Xa, P 0.24 IU/mL 2023 4:09 AM CDT DT Comment: [...] BLOOD NON A DD-ON Performing Organization Address [facility] Co de Phone Number [facility] [address] [place] [address], [facility] DTL [facility] [address] [place] [address] * (ABNORMAL) CBC without Differential (09/01/2023 8:16 PM CDT) [facility] Hemoglobin 8.5(L) 13.2 - 16.6 g/dL 09/01/2023 [...] M.D. LAB BLOOD ADD-ON Performing Organization Address City/[facility]/ZIP Co de Phone Number [facility] [address] [place] [address], [facility] DTL [facility] [address] [place] [address] * Heparin Anti-Xa Assay (09/01/2023 6:50 PM [...] BLOOD NON A DD-ON Performing Organization Address City/[facility]/ZIP Co de Phone Number [facility] [address] [place] [address], [facility] DTL [facility] [address] [place] [address] * APTT (Activated Partial Thromboplastin Time) (09/01/2023 9:05 AM CDT) Pathologist [facility] Activated Partial Thrombopl Time, P 28 25 - 37 sec 09/01/2023 9:35 AM CDT [facility] Blood (Blood, Venous) 09/01/2023 9:05 AM CDT 09/01/2023 9:21 AM CDT Paula Hernandez M.D. LAB BLOOD ADD-ON [facility] [address] [place] [address], [facility] STMA [address] [address] * (ABNORMAL) Basic Metabolic Panel (08/31/2023 9:36 PM CDT) Potassium, S 4.0 3.6 - 5.2 [...] CDT Paula Hernandez M.D. LAB BLOOD ADD-ON [facility] [address] [place] [address], [facility] [place] [address] [place] [address] * (ABNORMAL) CBC without Differential (08/31/2023 9:36 [...] CDT Paula Hernandez M.D. LAB BLOOD ADD-ON [facility] [address] [place] [address], [facility] DTL [facility] [address] [place] [address] * [place] Fluoro Less Than 1 Hour [...] 1 Units (08/31/2023 12:12 PM CDT) Paula Botkin M.D. BLOOD TRANSFUSION OR DERABLES * CT [...] in the bladder lumen. Paula Hernandez M.D. [facility] CT PROCEDURES * (ABNORMAL) Hemoglobin (08/31/2023 4:21 AM CDT) Hemoglobin 7.8(L) 13.2 - 16.6 g/dL 08/31/2023 4:47 AM CDT DTL Blood (Blood, Venous) 08/31/2023 4:21 AM CDT 08/31/2023 4:35 AM CDT Kimi Vieira M.D., M.S. LAB BLOO D ADD-ON [facility] [address] [place] [address], [facility] DTL [facility] [address] [place] [address] * Type and Screen (with Reflex Antibody ID) (08/30/2023 9:50 PM CDT) Pathologist [facility] ABORh O Pos Not applicable 08/30/2023 10:17 PM CDT STRM Antibody Screen Negative Negative 08/30/2023 10:31 PM CDT STRM Type & Screen Expiration 09/02/2023 23:59 08/30/2023 10:17 PM CDT STRM Testing Location [place] DEFAULT 08/30/2023 9:58 PM CDT STRM Blood (Blood, Venous) 08/30/2023 9:50 PM CDT 08/30/2023 9:58 PM CDT Shannan Correa D.O., M.H.A. LAB BLOOD BANK TEST ORDERABLES Performing Organization Address City/[facility] Co de Phone Number [facility] [address] [place] [address], [facility] STRM [facility] [address] [place] [address] * Lactate (08/30/2023 9:50 PM CDT) Pathologist [facility] Lactate, P 1.8 0.5 - 2.2 mmol/L 08/30/2023 10:09 PM CDT STMA Blood (Blood, Venous) 08/30/2023 9:50 PM CDT 08/30/2023 9:55 PM CDT Shannan N Eggum D.O., M.H.A. LAB BLOOD NON ADD-ON [facility] [address] [place] [address], [facility] STMA [facility] [address] [place] [address] * (ABNORMAL) Basic Metabolic Panel (08/30/2023 9:49 PM CDT) Pathologist [facility] Potassium, P 3.6 3.6 - 5.2 mmol/L [...] Correa D.O., M.H.A. LAB BLOOD ADD- ON [facility] [address] STMA [facility] [address] [place] [address] * (ABNORMAL) CBC with Differential, Blood (08/30/2023 [...] Correa D.O., M.H.A. LAB BLOOD ADD- ON [facility] [address] [place] [address], [place] STMA [facility] [address] [place] [address] [facility] [address] [place] [address] * DX Chest AP or PA and [...] CDT) Ventricular Rate ECG/Min 145 BPM MUSE TN Interval 136 ms MUSE QRSD Interval 64 ms MUSE QT Interval 260 ms MUSE QTC Interval 403 ms MUSE P [place] 44 degrees MUSE R [place] 9 degrees MUSE T Wave [place] -76 degrees MUSE 08/30/2023 7:44 PM CDT [...] Hematuria- Primary Hematuria Tachycardia Hematuria Gross Hematuria Gross documented in this encounter Admitting Diagnoses Diagnosis Hematuria Hematuria Gross documented in this encounter Administered Medications Inactive Administered Medications - up to 3 most recent administrations Medication Order MAR Action Action Date Dose Rate Site acetaminophen tablet 1,000 mg (TYLENOL) 1,000 mg, oral, Every 6 hours PRN, mild pain or score 1-3 of 10, Starting on Tue08/30/23 at 2239, For mild pain, give acetaminophen before tramadol. Given 09/03/2023 9:07 PM CDT 1,000 mg Given 09/01/2023 10:12 PM CDT 1,000 mg Given 08/31/2023 12:05 AM CDT 1,000 mg acetaminophen tablet 1,000 mg (TYLENOL) 1,000 mg, oral, Once, On Tue08/31/23 at 1230, For 1 dose, Pre-Op, PreOp give in preprocedural area. Given 08/31/2023 12:07 PM CDT 1,000 mg amLODIPine tablet 10 mg (NORVASC) 10 mg, oral, Daily, First dose on Tue08/31/23 at 0900 Given 09/05/2023 9:11 AM CDT 10 mg Given 09/04/2023 8:12 AM CDT 10 mg cefTRIAXone in dextrose (iso osm) IVPB 1 g (ROCEPHIN) 1 g, intravenous, at 200 mL/hr, Administer over 15 Minutes, Every 24 hours, First dose on Tue08/30/23 at 2300, Drug Monitoring Program: Pharmacist to adjust medication dosing based on indication and drug clearance factors., Indications: Prophylaxis, surgical New Bag 09/01/2023 10:12 PM CDT 1 g 200 mL/h r New Bag 08/31/2023 10:00 PM CDT 1 g 200 mL/hr New Bag 08/31/2023 12:10 AM CDT 1 g 200 mL/hr clopidogreL tablet 75 mg (PLAVIX) 75 mg, oral, Daily, First dose on Tue09/05/23 at 0900 Given 09/05/2023 9:11 AM CDT 75 mg enzalutamide capsule 120 mg (XTANDI) 120 mg, oral, Daily, First dose on Tue08/31/23 at 0900, HAZARDOUS - Handle with care. Swallow whole. Do NOT crush, chew or open capsule. Given 09/05/2023 9:10 AM CDT 120 mg Given 09/04/2023 8:45 AM CDT 120 mg Given 09/03/2023 9:46 AM CDT 120 mg heparin (porcine) 1,000 unit/mL injection 2,800 Units 2,800 Units (rounded from 2,772 Units = 30 Units/kg ? 92.4 kg), intravenous, As needed, antiXa 0.1-0.19, Starting on 09/03/23 at 1608, Intensity type: Moderate, Anti-Xa < 0.1: Loading Dose (Units/kg): 60, Anti-Xa 0.1-0.19: Loading Dose (Units/kg): 30, Anti-Xa > 0.19: Loading Dose (Units/kg): 0 Given 09/04/2023 8:50 AM CDT 2,800 Units heparin (porcine) 100 Units/mL in NaCl [...] 6 hours after Heparin resumed New Bag 09/03/2023 7:22 AM CDT 12 Units/kg/hr 11.1 mL/hr Rate/Dose Change 09/03/2023 4:17 AM CDT 12 Units/kg/hr 11. 1 mL/hr New Bag 09/02/2023 10:30 AM CDT 12 Units/kg/hr 11.1 mL/ hr heparin (porcine) 100 Units/mL in NaCl 0.45% 250 mL infusion 0-30 Units/kg/hr ? 92.4 kg (0-27.72 mL/hr), intravenous, Continuous, Starting on 09/03/23 at 1630, 25,000 Units in 250 mL, Intensity type: [...] 6 hours after Heparin resumed Rate/Dose Change 09/04/2023 8:47 AM CDT 14 Units/kg/hr 12.9 mL/hr New Bag 09/04/2023 1:29 AM CDT 12 Units/kg/hr 11.1 mL/h r Rate/Dose Change 09/04/2023 1:25 AM CDT 12 Units/kg/hr 11. 1 mL/hr iohexol dilution solution 7,500 mg (OMNIPAQUE) [...] intravenous, Continuous, Starting on Tue08/30/23 at 2300 New Bag 08/30/2023 10:57 PM CDT 100 mL/hr 100 mL/hr Lactated Ringer's 50 mL/hr, intravenous, Continuous, Starting on Tue08/31/23 at 1400, PACU & Post-Op New Bag 09/04/2023 5:41 AM CDT 50 mL/hr 50 mL/hr New Bag 09/03/2023 9:50 AM CDT 50 mL/hr 50 mL/hr New Bag 09/02/2023 12:08 PM CDT 50 mL/hr 50 mL/hr metoprolol succinate 24 hr tablet 50 mg (TOPROL-XL) 50 mg, oral, Once, On Tue08/30/23 at 2001, For 1 dose, Do NOT crush or chew. Tablet may be split on score if needed. Given 08/30/2023 8:07 PM CDT 50 mg metoprolol succinate 24 hr tablet 50 mg (TOPROL-XL) 50 mg, oral, Daily, First dose on Tue08/31/23 at 0900, Do NOT crush or chew. Tablet may be split on score if needed. Given 09/05/2023 9:11 AM CDT 50 mg Given 09/04/2023 8:13 AM CDT 50 mg Given 09/03/2023 9:48 AM CDT 50 mg mirabegron 24 hr tablet 50 mg (MYRBETRIQ) 50 mg, oral, Daily, First dose on Tue08/31/23 at 0900, Swallow whole. Do NOT crush, chew, or split tablet. Given 09/05/2023 9:11 AM CDT 50 mg Given 09/04/2023 8:12 AM CDT 50 mg Given 09/03/2023 9:49 AM CDT 50 mg NaCl 0.9 % bolus 500 mL 500 mL, intravenous, at 500 mL/hr, Administer over 1 Hours, Once, On Tue08/30/23 at 2013, For 1 dose New Bag 08/30/2023 8:49 PM CDT 500 mL 500 mL/hr NaCl 0.9 % bolus 500 mL 500 mL, intravenous, at 500 mL/hr, Administer over 1 Hours, Once, On Tue08/30/23 at 2142, For 1 dose New Bag 08/30/2023 9:51 PM CDT 500 mL 500 mL/hr NaCl 0.9 % irrigation [...] are ineffective, Starting on Tue08/30/23 at 2256 potassium bicarb-citric acid disintegrating tablet 40 mEq (EFFER-K) 40 mEq, oral, Once, On Tue09/04/23 at 2315, For 1 dose, For K 3-3.4 mEq/L - give total of 40 mEq Dissolve per oil well service operator recommendations. Do NOT chew or swallow tablet., Monitor the following for replacement: Potassium, Replace Potassium per: Standard Schedule Given 09/04/2023 11:37 PM CDT 40 mEq rivaroxaban tablet 10 mg (XARELTO) 10 mg, oral, Daily, First dose on Tue09/04/23 at 1030 Given 09/05/2023 9:11 AM CDT 10 mg Given 09/04/2023 11:17 AM CDT 10 mg rosuvastatin tablet 40 mg (CRESTOR) 40 mg, oral, Daily, First dose on Tue08/31/23 at 0900 Given 09/05/2023 9:11 AM CDT 40 mg Given 09/04/2023 8:12 AM CDT 40 mg Given 09/03/2023 9:49 AM CDT 40 mg sennosides-docusate sodium 8.6-50 mg per tablet 1 tablet (SENOKOT-S) 1 tablet, oral, 2 times daily, First dose on Tue08/31/23 at 0900, Do not give if patient has diarrhea. Given 09/04/2023 8:48 PM CDT 1 tablet Given 09/04/2023 8:13 AM CDT 1 tablet Given 09/03/2023 9:49 AM CDT 1 tablet sodium chloride 0.9 % injection 3 mL 3 mL, intravenous, Every 12 hours scheduled, First dose on Tue08/31/23 at 0900, Peripheral Intravenous Catheter and Rapid Infusion Catheter, when no infusion to maintain patency Given 09/05/2023 9: 16 AM CDT 3 mL Given 09/04/2023 8:49 PM CDT 3 mL Given 09/03/2023 9:10 PM CDT 3 mL trospium tablet 20 mg (SANCTURA) 20 mg, oral, 2 times daily PRN, bladder spasms, Starting on Tue08/30/23 at 2236, Administer with water at least 1 hr prior to meals., Restriction Criteria (Pharmacy will review and approve if criteria met): Use in patients 65 years of age or older Given 08/31/2023 12:05 AM CDT 20 mg documented in this encounter Active and Recently Administered Medications Times are shown in CDT. Scheduled Medication Order 09/03/2023 09/04/2023 09/05/2023 amLODIPine tablet 10 mg (NORVASC) 10 mg, oral, Daily, First dose on Tue08/31/23 at 0900 0900 (Not Given - Provider: Sarah Morgan R.N. - Reason: See Provider Order)1609 (Unheld by provider - Provider: Jeffery Valdez M.D.) 0812 (Given - Provider: Tayler Espinoza R.N.) 0911 (Given - Provider: Vanessa Leo R.N.) clopidogreL tablet 75 mg (PLAVIX) 75 mg, oral, Daily, First dose on Tue09/05/23 at 0900 0911 (Given - Provider: Vanessa Leo R.N.) enzalutamide capsule 120 mg (XTANDI) 120 mg, oral, Daily, First dose on Tue08/31/23 at 0900, HAZARDOUS - Handle with care. Swallow whole. Do NOT crush, chew or open capsule. 0946 (Given - Provider: Sarah Morgan R.N.) 0845 (Given - Provider: Joy Jackson R.N.) 0910 (Given - Provider: Vanessa Leo R.N.) metoprolol succinate 24 hr tablet 50 mg (TOPROL-XL) 50 mg, oral, Daily, First dose on Tue08/31/23 at 0900, Do NOT crush or chew. Tablet may be split on score if needed. 0948 (Given - Provider: Sarah Morgan R.N.) 0813 (Given - Provider: Tayler Espinoza R.N.) 0911 (Given - Provider: Vanessa Leo R.N.) mirabegron 24 hr tablet 50 mg (MYRBETRIQ) 50 mg, oral, Daily, First dose on Tue08/31/23 at 0900, Swallow whole. Do NOT crush, chew, or split tablet. 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 Do NOT chew or swallow tablet., Monitor the following for replacement: Potassium, Replace Potassium per: Standard Schedule 2337 (Given - Provider: Merlyn Treadwell RNarendra) rivaroxaban tablet 10 mg (XARELTO) 10 mg, oral, Daily, First dose on Tue09/04/23 at 1030 1117 (Given - Provider: Joy Jackson R.N.) 0911 (Given - Provider: Vanessa Leo R.N.) rosuvastatin tablet 40 mg (CRESTOR) 40 mg, oral, Daily, First dose on Tue08/31/23 at 0900 0949 (Given - Provider: Sarah Morgan R.N.) 0812 (Given - Provider: Tayler Espinoza R.N.) 0911 (Given - Provider: Vanessa Leo R.N.) sennosides-docusate sodium 8.6-50 mg per tablet 1 tablet (SENOKOT-S) 1 tablet, oral, 2 times daily, First dose on Tue08/31/23 at 0900, Do not give if patient has diarrhea. 0949 (Given - Provider: Sarah Morgan R.N.)2108 (Not Given - Provider: Gaye Dillard R.N. - Reason: Patient/family refused) 08 (Given - Provider: Tayler Espinoza R.N.)2047 (Given - Provider: Sarah Quintana R.N.) 09 (Not Given - Provider: Vanessa Leo R.N. - Reason: Order parameters not met) sodium chloride 0.9 % injection 3 mL 3 mL, intravenous, Every 12 hours scheduled, First dose on Tue08/31/23 at 0900, Peripheral Intravenous Catheter and Rapid Infusion Catheter, when no infusion to maintain patency 0950 (Given - Provider: Sarah Morgan R.N.)2109 (Given - Provider: Gaye Dillard R.N.) 813 (Not Given - Provider: Tayler Espinoza R.N. - Reason: Order parameters not met)2048 (Given - Provider: Sarah Quintana R.N.) 0916 (Given - Provider: Vanessa Leo R.N.) Continuous Medication Order 09/03/2023 09/04/2023 09/05/2023 heparin (porcine) 100 Units/mL in NaCl 0.45% 250 mL infusion (CANCELED) 0-30 Units/kg/hr ? 92.4 kg (0-27.72 mL/hr), [...] Repeat anti-Xa: 6 hours after Heparin resumed 0417 (Rate/Dose Change - Provider: Brittni Howe RNarendra)0722 (New Bag - Provider: Sarah Morgan R.N. - Comment: verified with Brittni MCCULLOUGH) heparin (porcine) 100 Units/mL in NaCl 0.45% 250 mL infusion (CANCELED) 0-30 Units/kg/hr ? 92.4 kg (0-27.72 mL/hr), intravenous, Continuous, Starting on 09/03/23 at 1630, 25,000 Units in 250 mL, Intensity type: [...] Repeat anti-Xa: 6 hours after Heparin resumed 1809 (New Bag - Provider: Sarah Morgan R.N. - Comment: verified with Tayler MCCULLOUGH) 0125 (Rate/Dose Change - Provider: Gaye Dillard R.N. - Comment: no change)0129 (New Bag - Provider: Gaye Dillard R.N.)0717 (Handoff - Provider: Gaye Dillard R.N.)0847 (Rate/Dose Change - Provider: Joy Jackson R.N. - Comment: with JAMEL Lester)1117 (Stopped - Provider: Joy Jackson RNarendra) Lactated Ringer's (CANCELED) 50 mL/hr, intravenous, Continuous, Starting on Tue08/31/23 at 1400, PACU & Post-Op 0950 (New Bag - Provider: Sarah Morgan R.N.) 0541 (New Bag - Provider: Gaye Dillard R.N.)0938 (Stopped - Provider: Joy Jackson R.N.) NaCl 0.9 % irrigation solution 3,000 mL 3,000 mL, irrigation, Continuous, Starting on Tue08/30/23 at 2213, FOR BLADDER IRRIGATION ONLY, NOT FOR IV USE NaCl 0.9 % irrigation solution 3,000 mL 3,000 mL, irrigation, Continuous, Starting on Tue08/30/23 at 2213, FOR BLADDER IRRIGATION ONLY, NOT FOR IV USE PRN Medication Order 09/03/2023 09/04/2023 09/05/2023 acetaminophen tablet 1,000 mg (TYLENOL) 1,000 mg, oral, Every 6 hours PRN, mild pain or score 1-3 of 10, Starting on Tue08/30/23 at 2239, For mild pain, give acetaminophen before tramadol. 2106 (Given - Provider: Gaye Dillard RJonahN.) alum-mag hydroxide-simeth 200-200-20 mg/5 mL suspension 30 [...] Daily PRN, constipation, Starting on Tue08/30/23 at 223, Ordered sequence of administration: polyethylene glycol, then bisacodyl until BM achieved. heparin (porcine) 1,000 unit/mL injection 2,800 Units (CANCELED)(Linked Group 1) 2,800 Units (rounded from 2,772 Units = 30 Units/kg ? 92.4 kg), intravenous, As needed, antiXa 0.1-0.19, Starting on Tue09/03/23 at 1608, Intensity type: Moderate, Anti-Xa < 0.1: Loading Dose (Units/kg): 60, Anti-Xa 0.1-0.19: Loading Dose (Units/kg): 30, Anti-Xa > 0.19: Loading Dose (Units/kg): 0 0850 (Given - Provider: Joy Jackson RJonahNJonah) naloxone injection 0.2 mg (NARCAN) 0.2 mg, [...] oxyCODONE IR tablet 2.5 mg (ROXICODONE)(Linked Group 2) 2.5 mg, oral, Every 4 hours PRN, moderate pain or score 4-6 of 10, May use if patient can take oral meds and other analgesics are ineffective, Starting on Tue08/30/23 at 2256 oxyCODONE IR tablet 5 mg (ROXICODONE)(Linked Group 2) 5 mg, oral, Every 4 hours PRN, severe pain or score 7-10 of 10, May use if patient can take oral meds and other analgesics are ineffective, Starting on Tue08/30/23 at 2256 polyethylene glycol powder packet 17 g (MIRALAX) 17 g, oral, Daily PRN, constipation, Starting on Tue08/30/23 at 223, Ordered sequence of administration: polyethylene glycol, then [...] or older Linked Groups Order Group 1: heparin (porcine) 1,000 unit/mL injection 2,800 Units (CANCELED)Jump to med 2,800 Units (rounded from 2,772 Units = 30 Units/kg ? 92.4 kg), intravenous, As needed, antiXa 0.1-0.19, Starting on 09/03/23 at 1608, Intensity type: Moderate, Anti-Xa < 0.1: Loading Dose (Units/kg): 60, Anti-Xa 0.1-0.19: Loading Dose (Units/kg): 30, Anti-Xa > 0.19: Loading Dose (Units/kg): 0 Or heparin (porcine) 1,000 unit/mL injection 5,500 Units (CANCELED) 5,500 Units (rounded from 5,544 Units = 60 Units/kg ? 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
--- OUTSIDE RECORDS SUMMARY | 2023-09-16 08:58 | XMS_ITS | Encounter Summary ---
Author Organization [facility] Address [address] [place] [address] Care Team Providers Care Retail Sales Manager Name Role Phone Elsewhere, Pcp Primary Care Provider Unavailabl e Reason for Visit * Reason Comments Urinary Problem Rapid Heart Rate Encounter Details Date Type Department Care Team ([facility] st Contact Info) Description 08/31/2023 12:36 PM CDT - 08/31/2023 2:31 PM CDT Surgery RST ROMB MAIN OR [address] [place] [address] Mayur Alvaerz M.D. [address] [place] [phone] CYSTOSCOPY EVACUATION CLOTS Social History Tobacco Use Types Packs/Day Years Used Date Smoking Tobacco: Never Smokeless Tobacco: Never [facility] Utilities Answer Date Recorded In the past 12 months has [facility] [employer], gas, oil, or water [employer] threatened to shut off services in your [...] your living situation today? [facility] have a [facility] live 08/13/2023 Sex and Gender [...] Discharge Summaries * Paula Hernandez M.D. - 09/05/2023 2:18 PM CDT DISCHARGE SUMMARY BRIEF OVERVIEW Hospital: [facility] Discharge Provider: Mayur Alvarez M.D. Primary Team: RST Urology Surgery - Chief Helga Rojas Primary [...] CYSTOGRAM Mayur Alvarez M.D.White, Lindsay A, M.D. [facility] ROMB OR DISCHARGE DISPOSITION Home-Health Care [facility] [6] ACTIVE ISSUES REQUIRING FOLLOW UP OUTPATIENT [...] CONSULT TO CARE MANAGEMENT IP CONSULT TO MANAGER COMMERCIAL WOUND CARE IP CONSULT TO HYPERBARIC MEDICINE CONDITION AT DISCHARGE improved Discharge instructions were provided to the patient and caregiver(s). documented in this encounter Discharge Instructions * Patient Instructions* Carmen Louis, R.N. - 08/31/2023 9:44 AM CDT The Senior LinkAge Line?? is a service of the [place] Board on Aging in partnership with [place]'s Area Agencies on Aging. It is a free service of the [facility] that connects older [place] and their families with the help they need. Call the Senior LinkAge Line?? at: 621.820.2521 M-F, 8am-4:30pm to connect with specialists that are available to assist you with your specific needsor check out their website at [email or web address] * Attachments The following attachments cannot be sent through Care Everywhere. * Cefdinir (By mouth) (Prydeinig) documented in this encounter Medications at Time [...] questions or concerns. Pager during business hours: [phone] Pager after hours: [phone] * Jeffery Valdez M.D. - 09/04/2023 10:34 AM CDT UROLOGY CHIEF SERVICE PROGRESS NOTE SUBJECTIVE Kalen Vega was seen by the team during morning rounds. Feeling overall well this morning. Catheter was removed yesterday. He still notes some very light pink staining of his urine, but no significant hematuria. OBJECTIVE Vital signs: AV Physical Exam: General: [...] questions or concerns. Pager during business hours: [phone] Pager after hours: [phone] * Jeffery Valdez M.D. - 09/03/2023 4:10 [...] heparin initiated POD 0 --LE US obtained 5/ PM due to patient's sustained tachycardia in [...] [facility]: Diet: Regular Activity: Ad kong DVT PPX: Holding GI PPX: None Bowel Regimen: Senna, MiraLax IVF: LR 50 Abx/Microbiology: Ucx pending Pain Control: Tylenol, 2.5/5 oxycodone Home Meds Resumed: Enzalutamide, metoprolol, mirabegron, rosuvastatin, trospium Held Home Meds: Plavix, Xarelto Consults: None Jeffery Valdez M.D. 09/03/2023 10:45 AM CDT Please page the Urology Chief Service with questions or concerns. Pager during business hours: [phone] Pager after hours: [phone] * Paula Hernandez M.D. - 09/02/2023 6:25 [...] questions or concerns. Pager during business hours: [phone] Pager after hours: [phone] * Michelle Willams R.N., C.W.C.N. 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 Son stated that a Energy Project Manager visited the home and will be trying to assist both and patient with cares/coordination. OBJECTIVE Patient is located on FR1C room 111. Referrals were sent to the following agencies: Home Medical Care - Admitted Since 08/30/2023 Service Provider Request Status Selected Services Address Phone Fax Patient Preferred [facility] Home Health - [place] Pending - Request Sent N/A [address], [facility] [phone] -- [facility] - Request Sent N/A [address], [facility] [address] [phone] -- Home Health Care Pending - Request Sent N/A [address], [facility] [address] -- [facility] Pending - Request Sent N/A [address] [facility] [phone] -- [facility] Pending - Request Sent N/A [address] [facility] [phone] -- [facility] Pending - Request Sent N/A [address] [facility] [address], [facility] [phone] -- [facility] Home Health Declined Facility Full N/A [address] [facility] [phone] -- ASSESSMENT / PLAN ASSESSMENT Glass Glazier attempted to contact patient on room phone but was unable to get through. Case Manageras able to reach his son who will update that patient that the preferred home health agency was unable to accept and that referrals would be sent to other home health agencies. Requested services arenursing for wound care and catheter and PT/OT. PLAN Glass Glazier will follow up with referrals. Case Manger will continue to follow. Carmen Louis RRitesh. 09/01/23 * Paula Hernandez M.D. - 09/01/2023 [...] questions or concerns. Pager during business hours: [phone] Pager after hours: [phone] * Paula Hernandez M.D. - 08/31/2023 10:45 [...] was 08/29. Last dose of Xarelto was 5/. We discussed options for management today. Overnight [...] risks associated with surgery and anesthesia including NM, stroke, and VTE were also discussed. Finally, [...] questions or concerns. Pager during business hours: [phone] Pager after hours: [phone] Associated attestation - Mayur Alvarez M.D. - 08/31/2023 12:14 PM CDT I agree with the Urology Chief Service plan for palliative cystoscopy under anesthesia, clot evacuation, proceed as indicated. We will plan for judicious irrigation given his recent bladder surgery and we will perform a cystogram at the end of the procedure. * Demarco Salazar Pharm.D., R.Ph., BCPS - 08/31/2023 7:19 AM CDT [...] discontinuation of antibiotics. Pedrito Salazar Pharm.D., R.Ph., [facility] Admission Medication History Note Adherence issues: [...] Status: Pharmacy/RN Complete Set By: Demarco Salazar, Pharm.D., R.Ph., BCPS at 08/31/2023 7:22 AM [...] an 83 y.o. male transferred to the [facility] ED for further management of gross hematuria. [...] for CBI. He was then transferred to [facility] on 08/12; a CT cystogram was performed [...] was initiated on CBI and transferred to [facility] for further management. On my initial evaluation [...] for radiation proctitis SOCIAL HISTORY Lives in [place], [place] OBJECTIVE Vitals Blood pressure 134/84, pulse [...] & Screen Expiration 09/02/2023 23:59 Testing Location [place] Imagin08/30/23 EXAM: US URINARY BLADDER COMPARISON: CT [...] hematuria, clot obstruction and was transferred to [facility] for further evaluation and management. Urinary bladder ultrasound showing 5 cm clot burden; catheter draining on fast-rate CBI after multiple rounds of hand irrigation. Plan - Continue CBI - Q2h hr hand irrigations - NPO overnight pending am re-evaluation - Hold Plavix, Xarelto for now The above was discussed with Drs. Venegas and Lefty, the chief urology residents consumer insights intern. Please page chief Urology [place] [phone] [place] [phone] afterhours. documented in this encounter Procedure Notes [...] on androgen deprivation therapy. 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 No scuba diving experience. Electronic health record [...] list. OBJECTIVE Vitals: 08/31/23 1800 08/31/23 1900 08/31/23 2000 08/31/23 2240 BP: 149/65 132/66 131/75 131/64 Patient [...] prolonged inpatient stay, would request transfer to [facility] prior to initiation of hyperbaric oxygen [...] 11 Referral Reason: Discharge Planning Primary Language: Prydeinig Educational Fundraising Director Services Used: No Person(s) present during interview: [...] Communication: Can write, Talks, Understands speaking, Understands Prydeinig, Reads Shopping: Needs assistance Medication Management: Independent Housekeeping: Needs assistance Meal Prep: Independent Assistive Devices: Walker - front wheeled, Eyeglasses, Hearing aid(s) Agency Name: [facility] Provided: Alf/PT/OT Transportation: Support from family Baseline Services/Resources Primary care clinic and provider: ELSEWHERE, PCP Additional Resources: N/A Anticipated Needs Functional Status: Housekeeping, Shopping, Transportation use (drive car, use taxi/bus), Mobility, Transfer to/from bed, chair, etc., Bathing Assistive Devices: Eyeglasses, Hearing aid(s), Walker - front wheeled Services/Resources: Home health Agency Name: [facility] Provided: Alf/PT/OT Anticipated Modifications to the Patient's Home: None Transportation Needs: Support from family Does the patient need discharge transport arranged?: No Anticipated Discharge Destination: Home-Health Care c ASSESSMENT / PLAN Assessment: The buckle stringer met with Kalen Vega to discuss his current hospitalization and home goingneeds. The patient was accompanied by son, Kar . The patient was a reliable historian. The role ofRN Glass Glazier was reviewed. The patient reviewed his prior level of care and support system. The patient receives support from his and children. The patient described his living environment as a home with bedroom and bathroom on same floor withstairs to enter with rails. Housekeeping, grocery shopping, meal prep, and other household responsibilities have previously been completed by patient and patient's son. buckle stringer discussed the patient's potential needs at dismissal based on their home setting, previous needs and responsibilities, homebound status, and relevant assessments with the patient. The patient will be safe and supported to return home with [facility] or previous services noted above when medically [...] PICC removal he would not need care. Glass Glazier will clarifywith home health team regarding if [...] chart and meeting with the patient, the buckle stringer deemed the LACE+/readmission questions were appropriate. The [...] current readmission could have been prevented. The buckle stringer will share this information with the care team. The patient reports understanding that he will dismiss from the hospital when medically stable. Thefollowing potential barriers to dismissal have been identified: Home Health Care Addendum 1230: Glass Glazier called [facility]. They received the referral but declined due to being at capacity. Plan: The patient agrees with the following plan. Patient's anticipated discharge disposition is: Home with Home Healthcare Referrals sent. Transportation upon dismissal will be provided by family--Kar . buckle stringer recommended home health services. buckle stringer provided information regarding the dismissal process and the Senior Linkage Line ([place] Board on Aging) handout. buckle stringer placed or requested the following hospital-based consult orders and/or referrals: None. buckle stringer will follow up with the patient to [...] with updates and/or transition plan to come. buckle stringer encouraged the patient to reach out with [...] CDT Pre-op Diagnosis Hematuria Post-op Diagnosis Hematuria Center Medical And Lab Director A information assistant actively participated and was necessary for [...] or filling defects. 5. Placement of [address] catheter with 20 cc in [...] The resectoscope was removed and a [address] catheter was placed with 20 [...] including history, physical exam, orders, and plan. Iagree with the note of the resident. Kirstin [...] secondary to cystostomy closure presenting today from [facility] with concerns for worsening hematuria. He was [...] 08/30/2023 8:48 AM CDT Pt transferred from [facility] via EMS, pt c/o blocked jon cath that started today. Pt had a right uretal stent exchange and an open bladder repair 08/15/23 and was discharged 08/25. Pt had a3 way jon placed at [facility], and transferred here because the clots returned. [...] RN, CPN, CCDS, CCS, CRC Clinical Documentation Manager Developmental Query created by: ELMER Barker, RN, CPN, [...] CDT Procedure visit Department of Urology in [place], [place] [address] [place] [address] Paula Hernandez M.D. [address] [place] [address] Pending Results Name Type Priority Associated Diagnoses [...] CDT Roxy Romero M.D. LAB BLOOD ADD-ON [facility] [address] [place] [address], [facility] DTB[facility]ard [facility] Laboratories[facility] [address] [place] [address] * (ABNORMAL) Basic Metabolic Panel (09/05/2023 4:52 [...] Jakob De Paz M.D. LAB BLOOD ADD-ON [address] [address], [facility] [address] [address] * (ABNORMAL) Basic Metabolic Panel (09/04/2023 8:15 [...] CDT Jeffery Valdez M.D. LAB BLOOD ADD-ON [place] [address] [place], [place] [address] [place] [address] [address] [place] [address] * (ABNORMAL) CBC without Differential (09/04/2023 8:15 [...] - 317 x10(9)/L 09/04/2023 9:19 PM CDT DHPM Leukocytes 7.5 3.4 - 9.6 x10(9)/L 09/04/2023 9:19 PM CDT [facility] Blood (Blood, Venous) 09/04/2023 8:15 PM CDT 09/04/2023 8:52 PM CDT Jeffery Valdez M.D. LAB BLOOD ADD-ON Performing Organization Address [facility] Co de Phone Number [facility] [address] [place] [address], [facility] [address] [place] [address] * Transfuse Red Blood Cells : (09/04/2023 3:30 PM CDT) Jeffery Valdez M.D. BLOOD TRANSFUSION OR DERABLES * Transfuse Red Blood Cells : , 1 Units (09/04/2023 3:30 PM CDT) Jeffery Valdez M.D. BLOOD TRANSFUSION OR DERABLES * Type and Screen (with Reflex Antibody ID) (09/04/2023 10:59 AM CDT) Pathologist [facility] ABORh O Pos Not applicable 09/04/2023 11:46 AM CDT STRM Antibody Screen Negative Negative 09/04/2023 11:59 AM CDT STRM Type & Screen Expiration 09/07/2023 23:59 09/04/2023 11:46 AM CDT STRM Testing Location [place] [facility] 09/04/2023 11:21 AM CDT STRM Blood (Blood, Venous) 09/04/2023 10:59 AM CDT 09/04/2023 11:21 AM CDT Jeffery Valdez M.D. LAB BLOOD BANK TEST ORDERABLES Performing Organization Address [facility] Co de Phone Number [facility] [address] [place] [address], [facility] [address] [place] [address] * Heparin Anti-Xa Assay (09/04/2023 7:34 AM CDT) Pathologist [facility] Heparin Anti-Xa, P 0.12 IU/mL 2023 8:14 [...] Alvarez M.D. LAB BLOOD NON A DD-ON [address] [address], [place] [address] * (ABNORMAL) CBC without Differential (09/04/2023 7:34 AM CDT) Pathologist [facility] Hemoglobin 7.7(L) 13.2 - 16.6 g/dL 09/04/2023 [...] - 9.6 x10(9)/L 09/04/2023 8:16 AM CDT DTL Blood (Blood, Venous) 09/04/2023 7:34 AM CDT 09/04/2023 8:06 AM CDT Paula Hernandez M.D. LAB BLOOD ADD-ON Performing Organization Address City/[facility] Co de Phone Number [facility] [address] [place] [address], [address] [address] * Heparin Anti-Xa Assay (09/04/2023 12:30 AM [...] BLOOD NON A DD-ON Performing Organization Address City/[facility]/ZIP Co de Phone Number [facility] [address] [place] [address], [facility] [address] [place] [address] * Bacterial Culture, Aerobic + Susceptibility, Urine (09/03/2023 10:50 AM CDT) Urine Culture No growth after 1 day of incubation. 09/04/2023 8:52 AM CDT DT Urine (Urine, Indwelling Catheter) 09/03/2023 10:50 AM CDT 09/03/2023 11:53 AM CDT Comment:Specimen Source Site : Urine Jeffery Valdez M.D. LAB MICROBIOLOGY - G ENERAL ORDERABLES Performing Organization Address [facility] Co de Phone Number [facility] [address] [place], [place] [address] [place] [address] * (ABNORMAL) CBC without Differential (09/03/2023 3:29 AM CDT) Pathologist [facility] Hemoglobin 8.0(L) 13.2 - 16.6 g/dL 09/03/2023 [...] LAB BLOOD ADD-ON Performing Organization Address City/[facility]/ZIP Co de Phone Number [facility] [address] [place], [place] [phone] [place] [address] [address] [place] [address] * Heparin Anti-Xa Assay (09/03/2023 3:29 AM CDT) Pathologist [facility] Heparin Anti-Xa, P 0.26 IU/mL 2023 4:07 [...] 3:29 AM CDT 09/03/2023 3:45 AM CDT Narrative Authorizing Provider Result Abdifatah Alvarez M.D. LAB BLOOD NON A DD-ON [place] [address] [facility] [address] [place] [address] * Heparin Anti-Xa Assay (09/02/2023 2:57 AM [...] BLOOD NON A DD-ON Performing Organization Address [facility] Co de Phone Number [facility] [address] [place], [place] [phone] [place] [address] [facility] [address] [place] [address] * (ABNORMAL) CBC without Differential (09/01/2023 8:16 PM CDT) Pathologist [facility] Hemoglobin 8.5(L) 13.2 - 16.6 g/dL 09/01/2023 [...] Paula Hernandez M.D. LAB BLOOD ADD-ON [facility] [address] [place], [place] [address] DTAsc[address] [facility] [address] [place] [address] * Heparin Anti-Xa Assay (09/01/2023 6:50 PM CDT) Pathologist [facility] Heparin Anti-Xa, P 0.35 IU/mL 2023 7:47 [...] BLOOD NON A DD-ON Performing Organization Address [facility]/ZIP Co de Phone Number [facility] [address] [place] [address] * APTT (Activated Partial Thromboplastin Time) (09/01/2023 9:05 AM CDT) Activated Partial Thrombopl Time, P 28 25 - 37 sec 09/01/2023 9:35 AM CDT [facility] Blood (Blood, Venous) 09/01/2023 9:05 AM CDT 09/01/2023 9:21 AM CDT Paula Hernandez M.D. LAB BLOOD ADD-ON Performing Organization Address City/[facility]/ZIP Co de Phone Number [facility] [address] [place] [address], [facility] [place] [address] * (ABNORMAL) Basic Metabolic Panel (08/31/2023 9:36 [...] CDT Paula Hernandez M.D. LAB BLOOD ADD-ON [address] [address], [facility] [place] [address] * (ABNORMAL) CBC without Differential (08/31/2023 9:36 [...] Paula Hernandez M.D. LAB BLOOD ADD-ON [facility] [address] [place] [address], [facility] DTL [facility] [address] [place] [address] * [place] Fluoro Less Than 1 Hour (08/31/2023 2:12 PM CDT) Narrative 152 HOS LOS RST - 08/31/2023 2:13 PM CDT This exam does not require a radiologist review or interpretation. Please refer to the patient's medical record on this date for clinical details. Mayur Alvarez M.D. IMG FLUOROSCOPY PROCEDURES Performing Organization Address [facility] Co de Phone Number 152 HOS LOS RST * Transfuse Red Blood Cells : (08/31/2023 12:12 PM CDT) Puala Hernandez M.D. BLOOD TRANSFUSION OR DERABLES * [...] Vieira M.D., M.S. LAB BLOO D ADD-ON [facility] [address] [place] [address], [facility] DTL [facility] [address] [place] [address] * Type and Screen (with Reflex Antibody ID) (08/30/2023 9:50 PM CDT) [facility] ABORh O Pos Not applicable [...] BLOOD BANK TEST ORDERABLES Performing Organization Address [facility]/ZIP Co de Phone Number [facility] [address] [place] [address], [facility] STRM [facility] [address] [place] [address] * Lactate (08/30/2023 9:50 PM CDT) [facility] Lactate, P 1.8 0.5 - 2.2 mmol/L 08/30/2023 10:09 PM CDT STMA Blood (Blood, Venous) 08/30/2023 9:50 PM CDT 08/30/2023 9:55 PM CDT Shannan Correa D.O., M.H.A. LAB BLOOD NON ADD-ON [facility] [address] [place] [address], [facility] STMA [facility] [address] [place] [address] * (ABNORMAL) Basic Metabolic Panel (08/30/2023 9:49 PM CDT) [facility] Potassium, P 3.6 3.6 - 5.2 mmol/L [...] Correa D.O., M.H.A. LAB BLOOD ADD- ON [facility] [address] [place] [address], [facility] [address] [place] [address] * (ABNORMAL) CBC with Differential, Blood (08/30/2023 9:49 PM CDT) [facility] Hemoglobin 8.5(L) 13.2 - 16.6 g/dL 08/30/2023 [...] Correa D.O., M.H.A. LAB BLOOD ADD- ON [facility] [address] [place] [address], [facility] STMA [facility] [address] [place] [address] [facility] [address] [place] [address] * DX Chest AP or PA and [...] CDT) Ventricular Rate ECG/Min 145 BPM MUSE WV Interval 136 ms MUSE QRSD Interval 64 ms MUSE QT Interval 260 ms MUSE QTC Interval 403 ms MUSE P [place] 44 degrees MUSE R [place] 9 degrees MUSE T Wave [place] -76 degrees MUSE 08/30/2023 7:44 PM CDT [...] Primary Hematuria Tachycardia Hematuria Gross Hematuria Gross Hematuria documented in this encounter [...] Given 08/31/2023 12:05 AM CDT 1,000 mg amLODIPine tablet 10 mg (NORVASC) 10 mg, oral, Daily, First dose on Tue08/31/23 at 0900 Given 09/05/2023 9:11 AM CDT 10 mg Given 09/04/2023 8:12 AM CDT 10 mg clopidogreL tablet 75 mg (PLAVIX) 75 [...] Given 09/03/2023 9:46 AM CDT 120 mg iohexoL 350 mg iodine/mL solution (OMNIPAQUE) As needed, Starting on Tue08/31/23 at 1355, Intra-Op Given 08/31/2023 1:55 PM CDT 50 mL Oth er metoprolol succinate 24 hr tablet 50 mg (TOPROL-XL) 50 mg, oral, Daily, First dose on Tue08/31/23 at 0900, Do NOT crush or chew. Tablet may be split on score if needed. Given 09/05/2023 9:11 AM CDT 50 m g Given 09/04/2023 8:13 AM CDT 50 mg [...] Bag 09/01/2023 8:01 AM CDT 3,000 mL Bag 08/31/2023 6:11 PM CDT 3,000 mL Bag 08/31/2023 5:21 PM CDT 3,000 mL [...] are ineffective, Starting on Tue08/30/23 at 2256 rivaroxaban tablet 10 mg (XARELTO) 10 mg, [...] at 0900 0900 (Not Given - Provider: Mayur NolascoNJonah - Reason: See Provider Order)0620 (Unheld by provider - Provider: Jeffery Valdez [...] give total of 40 mEq Dissolve per home health occupational therapist recommendations. Do NOT chew or swallow tablet., Monitor the following for replacement: Potassium, Replace Potassium per: Standard Schedule 2337 (Given - Provider: Merlyn Treadwell RJonahNJonah) rivaroxaban tablet 10 mg (XARELTO) 10 mg, [...] R.N.)2109 (Given - Provider: Gaye Dillard R.N.) 08 (Not Given - Provider: Tayler Espinoza R.N. [...] JAMEL Lester)1117 (Stopped - Provider: Joy Jackson R.N.) Lactated Ringer's (CANCELED) 50 mL/hr, intravenous, Continuous, [...] tramadol. 2106 (Given - Provider: Gaye Dillard R.N.) alum-mag hydroxide-simeth 200-200-20 mg/5 mL suspension [...] 0 0850 (Given - Provider: Joy Jackson R.N.) naloxone injection 0.2 mg (NARCAN) 0.2 [...] 2256 documented in this encounter Care Teams Retail Sales Manager Relationship Specialty [place] Date End Date Elsewhere, Pcp PCP - General Internal Medicine 08/13/23 documented as of this encounter
--- OUTSIDE RECORDS SUMMARY | 2023-09-16 08:58 | XMS_ITS | Encounter Summary ---
Author Organization [facility] Address [address] [place] [id number] Care Team Providers Care Design Engineering Manager Name Role Phone Elsewhere, Pcp Primary Care Provider Unavailabl e Reason for Referral * Outpatient (Routine) - Authorized Specialty Diagnoses / Procedures Referred By Contac t Referred To Contact Diagnoses Hematuria Gross Procedures DX Chest AP or PA and Lateral 2 Views Paula Hernandez M.D. [address] [place] [address] [facility] Referral ID Status Reason Start Date Expiration Date V isits Requested Visits Authorized [id number] Authorized 09/07/2023 09/06/2024 1 1 Encounter Details Date Type Department Care Team (Late st Contact Info) Description 09/06/2023 Clinical Communication [facility] [address] [place] [phone] Yasmine Loco Social History Tobacco Use Types Packs/Day Years Used Date Smoking Tobacco: Never Smokeless Tobacco: Never [facility] Utilities Answer Date Recorded In the past [...] have a [facility] place to live 09/09/2023 Sex and Gender Information Value Date Recorded Sex Assigned at Not on file Gender Identity Not on file Sexual Orientation Not on file documented as of this encounter Plan of Treatment Upcoming Encounters Date Type Department Care Team (Late st Contact Info) Description 10/14/2023 1:00 PM CDT Procedure visit Department of Urology in [place], [place] [address] [place] [address] Paula Hernandez M.D. 200 [place] [address] Scheduled Orders Name Type Priority Associated Diagnoses Orde r Schedule DX Chest AP or PA and Lateral 2 Views Imaging RAD - Routine (most inpatients and all outpatients) Hematuria Gross Expected: 09/08/2023, Expires: 09/05/2024 documented as of this encounter Visit Diagnoses Diagnosis Hematuria Gross- Primary documented in this encounter Care Teams Design Engineering Manager Relationship Specialty [place] Date End Date Elsewhere, Pcp PCP - General Internal Medicine 08/13/23 documented as of this encounter
--- OUTSIDE RECORDS SUMMARY | 2023-09-16 08:58 | XMS_ITS | Encounter Summary ---
Author Organization [facility] Address [address] [place] [address] Care Team Providers Care Plate Washer Name Role Phone Elsewhere, Pcp Primary Care Provider Unavailabl e Encounter Details Date Type Department Care Team (Late st Contact Info) Description 08/26/2023 Orders Only Department of Urology in [place], [place] [address] [place] [address] Paula Hernandez M.D. [address] [place] [address] Social History Tobacco Use Types Packs/Day Years Used Date Smoking Tobacco: Never Smokeless Tobacco: Never [facility] Utilities Answer Date Recorded In the past 12 months has [facility] electric, gas, oil, or water company [...] your living situation today? I have a [facility] place to live 08/13/2023 Sex and Gender Information Value Date Recorded Sex Assigned at Not on file Gender Identity Not on file Sexual Orientation Not on file documented as of this encounter Plan of Treatment Upcoming Encounters Date Type Department Care Team (Late st Contact Info) Description 10/14/2023 1:00 PM CDT Procedure visit Department of Urology in [place], [place] [address] [place] [address] Paula Hernandez M.D. [address] [place] [address] documented as of this encounter Visit Diagnoses Not on filedocumented in this encounter Care Teams Plate Washer Relationship Specialty Start Date End Date Elsewhere, Pcp PCP - General Internal Medicine 08/13/23 documented as of this encounter
--- OUTSIDE RECORDS SUMMARY | 2023-09-16 08:58 | XMS_ITS | Encounter Summary ---
Author Organization [facility] Address [address] [place] [address] Care Team Providers Care Louver Door Assembler Name Role Phone Elsewhere, Pcp Primary Care Provider Unavailabl e Encounter Details Date Type Department Care Team (Late st Contact Info) Description 08/31/2023 12:34 PM CDT Anesthesia Event [facility] [address] [place] [phone] Joe Stoll M.D. [address] [place] [address] [phone] Benjamin Williamson, WAD LUBRICATOR, STEAM PLANT RECORDS CLERK [address] [place] [phone] Anesthesia Record Procedure Summary Procedure Name Responsible [...] Airways Type Details Placement Removal Wound 08/15/23; 0900; N; Incision; Pannus; Mid 08/15/23 0900 by Janina Coronado R.N. Wound 08/23/23; 0052; Y (P er patient); Unknown; (unsure); Pressure inj; Unstageable; Coccyx; Pre-Existing over Scar Tissue 08/23/23 0052 by Lisa Serrano RNarendra Bladder Irrigation 08/15/23; 1143; Dr. De Paz; Continuous; Three-way; 24 Fr; 30 mL (balloon filled with 10 ml water); Yes; 08/31/23; 1304 08/15/23 1143 by Janina Coronado R.N. 08/31/23 1304 by Jacqui Mehta RJonahNJonah Wound 08/22/23; 0825; Neck ; Right; Veinotomy; 09/09/23; 1321; Wound healed 08/22/23 0825 by Kirstin Valdes RJonahNJonah 09/09/23 1321 by Jazmine Benítez RNarendra, C.W.C.N. Peripheral IV Placement Date: 08/30/23; Placement Time: 2048; Catheter Size: 20 G; Orientation: Right; Location: Hand; Insertion Attempts: 1; Removal Date: 09/05/23; Removal Time: 0700; Removal Reason: Patient discharged 08/30/232048 by Chelsea Argueta R.N. 09/05/23 07 by aVnessa Leo R.N. Supraglottic Airway Placement Date: 08/31/23; Placement Time: 1243 (created via procedure documentation); Mask Ventilation: Not attempted; Brand: Unique; Size: 5; Removal Date: 08/31/23; Removal Time: 1402 08/31/23 1243 by Benjamin Williamson APRN, STEAM PLANT RECORDS CLERK 08/31/23 1402 by Benjamin Williamson APRN, STEAM PLANT RECORDS CLERK Indwelling Urinary Catheter Placement Date: 08/31/23; Placement Time: 1359; Inserted by: Siddhartha Venegas MD; Size: 24 Fr.; Balloon Size: (20 ml fill saline); Removal Date: 08/31/23; Removal Time: 1403 08/31/23 1359 by Jacqui Mehta R.N. 08/31/23 1403 by Jacqui Mehta R.N. Bladder Irrigation 08/31/23; 1403; Siddhartha Venegas MD; Stopped (DC'd CBI); Three-way; 24 Fr; 30 mL (20 ml fill saline); Yes; 09/03/23; 1103; Per order 08/31/23 1403 by Jacqui Mehta R.N. 09/03/23 1103 by Sarah Morgan R.N. documented in this encounter Social History Tobacco Use Types Packs/Day Years Used Date Smoking Tobacco: Never Smokeless Tobacco: Never [facility] Utilities Answer Date Recorded In the past 12 months has [facility] [employer], gas, oil, or water [employer] threatened to shut off services in your [...] living situation today? I have a [facility] place to live 08/13/2023 Sex and Gender Information Value Date Recorded Sex Assigned at Not on file Gender Identity Not on file Sexual Orientation Not on file documented as of this encounter OR Notes * Anesthesia Postprocedure Evaluation - Joe Stoll M.D. - 08/31/2023 5:27 PM CDT Patient: Kalen Vega Procedure Summary Date: 08/31/23 Room / Location: [place] [address] / [facility] in [place], [place] Anesthesia Start: 1234 Anesthesia Stop: 1420 [...] Hematuria [R31.9] Pre-op diagnosis: Hematuria [R31.9] Location: [address] 01 [facility] / [facility] in [place], [place] Providers: Mayur Alvarez M.D. Pertinent components [...] patient / legal guardian, or through an janitor cleaner; patient evaluated and approved for anesthesia / [...] CDT Procedure visit Department of Urology in [place], [place] [address] [place] [address] Paula Hernandez M.D. [address] [place] [address] documented as of this encounter Procedures Procedure Name Priority Date/Time Associated Diagnosis Comments LDA ANE NON-SURGICAL AIRWAY Routine 08/31/2023 12:43 PM CDT documented in this encounter Results * LDA ANE NON-SURGICAL AIRWAY (08/31/2023 12:43 PM CDT) Narrative Benjamin Williamson APRN, GAVIN - 08/31/2023 12:43 PM CDT Benjamin Williamson [...] mg documented in this encounter Care Teams Louver Door Assembler Relationship Specialty [place] Date End Date Elsewhere, Pcp PCP - General Internal Medicine 08/13/23 documented as of this encounter
--- OUTSIDE RECORDS SUMMARY | 2023-09-16 08:58 | XMS_ITS | Encounter Summary ---
Author Organization [facility] Address [address] [place] [address] Care Team Providers Care Buggy Operator Name Role Phone Elsewhere, Pcp Primary Care Provider Unavailabl e Encounter Details Date Type Department Care Team (Late st Contact Info) Description 08/30/2023 Documentation Department of Urology in [place], [place] [address] [place] [address] Corin Ring M.D. [address] [place] [address] Social History Tobacco Use Types Packs/Day Years Used Date Smoking Tobacco: Never Smokeless Tobacco: Never [facility] Utilities Answer Date Recorded In the past [address] [facility] electric, gas, oil, or water company threatened [...] living situation today? I have a [facility] place to live 08/13/2023 Sex and Gender Information Value Date Recorded Sex Assigned at Not on file Gender Identity Not on file Sexual Orientation Not on file documented as of this encounter Plan of Treatment Upcoming Encounters Date Type Department Care Team (Late st Contact Info) Description 10/14/2023 1:00 PM CDT Procedure visit Department of Urology in [place], [place] [address] [place] [address] Paula Hernandez M.D. [address] [place] [address] documented as of this encounter Visit Diagnoses Not on filedocumented in this encounter Care Teams Buggy Operator Relationship Specialty Start Date End Date Elsewhere, Pcp PCP - General Internal Medicine 08/13/23 documented as of this encounter
--- OUTSIDE RECORDS SUMMARY | 2023-09-16 08:58 | XMS_ITS | Encounter Summary ---
Author Organization [facility] Address [address] [place] [address] Care Team Providers Care Inspector Barrel Name Role Phone Elsewhere, Pcp Primary Care Provider Unavailabl e Encounter Details Date Type Department Care Team (Latest Contact Info) Description 08/30/2023 Intake [facility] Social History Tobacco Use Types Packs/Day Years Used Date Smoking Tobacco: Never Smokeless Tobacco: Never [facility] Utilities Answer Date Recorded In the past 12 months has [facility] electric, gas, oil, or water company [...] your living situation today? I have a [facility] place to live 08/13/2023 Sex and Gender Information Value Date Recorded Sex Assigned at Not on file Gender Identity Not on file Sexual Orientation Not on file documented as of this encounter Plan of Treatment Upcoming Encounters Date Type Department Care Team (Late st Contact Info) Description 10/14/2023 1:00 PM CDT Procedure visit Department of Urology in [place], [place] [address] [place] [address] Paula Hernandez M.D. 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
--- OUTSIDE RECORDS SUMMARY | 2023-09-16 08:58 | XMS_ITS | Encounter Summary ---
Author Organization [facility] Address [address] [place] [address] Care Team Providers Care Cart Driver Name Role Phone Elsewhere, Pcp Primary Care Provider Unavailabl e Encounter Details Date Type Department Care Team (Late st Contact Info) Description 09/01/2023 10:05 AM CDT Ancillary Procedure Department of Nursing Social History Tobacco Use Types Packs/Day Years Used Date Smoking Tobacco: Never Smokeless Tobacco: Never [facility] Utilities Answer Date Recorded In the past [address] [facility] electric, gas, oil, or water company [...] your living situation today? I have a [facility] place to live 08/13/2023 Sex and Gender Information Value Date Recorded Sex Assigned at Not on file Gender Identity Not on file Sexual Orientation Not on file documented as of this encounter Plan of Treatment Upcoming Encounters Date Type Department Care Team (Late st Contact Info) Description 10/14/2023 1:00 PM CDT Procedure visit Department of Urology in [place], [place] [address] [place] [address] Paula Hernandez M.D. [address] [place] [address] documented as of this encounter Procedures Procedure [...] on filedocumented in this encounter Care Teams Cart Driver Relationship Specialty Start Date End Date Elsewhere, Pcp PCP - General Internal Medicine 08/13/23 documented as of this encounter
--- OUTSIDE RECORDS SUMMARY | 2023-09-16 08:58 | XMS_ITS | Encounter Summary ---
Author Organization [facility] Address [address] [place] [address] Care Team Providers Care Videographer Name Role Phone Elsewhere, Pcp Primary Care Provider Unavailabl e Encounter Details Date Type Department Care Team (Late st Contact Info) Description 08/31/2023 12:25 PM CDT Ancillary Procedure Department of General Surgery Social History Tobacco Use Types Packs/Day Years Used Date Smoking Tobacco: Never Smokeless Tobacco: Never [facility] Utilities Answer Date Recorded In the past 12 months has [facility] electric, gas, oil, or water [...] your living situation today? I have a [facility] place to live 08/13/2023 Sex and Gender Information Value Date Recorded Sex Assigned at Not on file Gender Identity Not on file Sexual Orientation Not on file documented as of this encounter Plan of Treatment Upcoming Encounters Date Type Department Care Team (Late st Contact Info) Description 10/14/2023 1:00 PM CDT Procedure visit Department of Urology in [place], [place] [address] [place] [address] Paula Hernandez M.D. [address] [place] [address] documented as of this encounter Procedures Procedure [...] on filedocumented in this encounter Care Teams Videographer Relationship Specialty Start Date End Date Elsewhere, Pcp PCP - General Internal Medicine 08/13/23 documented as of this encounter
--- OUTSIDE RECORDS SUMMARY | 2023-09-16 08:59 | XMS_ITS | Encounter Summary ---
Author Organization [facility] Address [address] [place] [address] Care Team Providers Care Ramp Lead Name Role Phone Elsewhere, Pcp Primary Care Provider Unavailabl e Encounter Details Date Type Department Care Team (Latest Contact Info) Description 08/13/2023 3:42 PM CDT - 08/26/2023 4:11 PM CDT Hospital Encounter [facility], [facility], Sixth Floor [address] [place] [address] Darnell Garcia M.D. [address] [place] [phone] Boubacar Brock M.D. [address] [place] [phone] Decline Functional Status [R53.81] (Primary Dx); Hematuria [R31.9] Discharge Disposition: Home or Self Care Social History Tobacco Use Types Packs/Day Years Used Date Smoking Tobacco: Never Smokeless Tobacco: Never [facility] Utilities Answer Date Recorded In the past 12 months has [facility] [employer], gas, oil, or water company threatened to [...] living situation today? I have a [facility] place to live 08/13/2023 Sex and [...] AM CDT DISCHARGE SUMMARY BRIEF OVERVIEW Hospital: [facility] Discharge Provider: Boubacar Brock M.D. Primary Team: [facility] Urology Surgery - Chief Helga [...] M.D.Wen, Lexiaochuan, M.D.Premo, Hayley, M.D.Botkin, Hannah, M.D. [facility] ROMB OR DISCHARGE DISPOSITION Home or Self Care [1] ACTIVE ISSUES REQUIRING FOLLOW UP OUTPATIENT FOLLOW UP Scheduled Appointments 08/26/2023 1:00 PM [facility] Radiology For appointment details refer to [...] he felt completely obstructed and presented to [facility] Attempted Tabares insertion but bladder irrigation was unsuccessful on multiple attempts. Hung 1U pRBC's. Given some volume and transferred to [facility] ICU ICU Course Urology consulted [...] CONSULT TO NUTRITION SUPPORT IP CONSULT TO VALVE MAKER WOUND CARE CONDITION AT DISCHARGE stable [...] he felt completely obstructed and presented to [facility]. [facility] Attempted Tabares insertion but bladder irrigation was unsuccessful on multiple attempts. Hung 1U pRBC's. Given some volume and transferred to [facility] ICU ICU Course Urology consulted [...] switched out to solifenacin inpatient Carlos Alberto Hensno M.D. PGY-1 CCM 3 documented in this encounter Discharge Instructions * Discharge Instructions* Yasmine Loco - 08/22/2023 1:11 PM CDT You were discharged from the [facility] Urology Surgery - Chief A - Blue Service. Please identify this service name if you call with questions after hospitalization. * Attachments The following attachments cannot be sent through Care Everywhere. * Bacitracin (On the skin) (Ugandan) * Cefdinir (By mouth) (Ugandan) * Trospium (By mouth) (Ugandan) documented in this encounter Medications at Time of Discharge Medication Sig Dispensed Refills Start Date End Date clopidogreL (PLAVIX) 75 mg tablet Take 75 mg by mouth every morning. 12/27/2019 metoprolol succinate (TOPROL-XL) 50 mg 24 hr tablet Take 50 mg by mouth at bedtime. 11/02/2019 amLODIPine (NORVASC) 10 mg tablet Take 10 mg by mouth daily. Takes in the afternoon, 1 to 2 pm 01/11/2020 cholecalciferol (Vitamin D3) 50 mcg (2,000 Unit) tablet Take 50 mcg by mouth daily. coenzyme Q10 (CO Q-10) [...] every morning. Do not crush or chew. mirabegron (MYRBETRIQ) 50 mg 24 hr tablet [...] Take 10 mg by mouth every morning. bacitracin 500 unit/gram ointment Apply 1 Application topically 4 (four) times a day as needed (catheter irritaiton). Apply to tip of penis as needed for catheter irritation. 30 g 08/26/2023 09/09/2023 cefdinir (OMNICEF) 300 mg capsule Take 1 capsule (300 mg total) by mouth 2 (two) times a day before breakfast and dinner for 2 days. Then take 1 capsule 2 times a day before breakfast and dinner for 3 days the day before, day of, day after catheter removal. 10 capsule 08/26/2023 09/05/2023 documented as of this encounter Progress Notes * Emeterio Buchanan P.T., D.P.T., [facility] - 08/26/2023 4:27 PM CDT 08/26/23 1627 Reason Therapy Missed Reason Therapy Missed Receiving other care Attempted to see patient twice today. On 1st attempt patient was receiving blood transfusion and RNwas working on completing cares with him. On 2nd attempt patient was with another provider. * Chary Diamond M.A., O.T., [facility] - 08/26/2023 10:21 AM CDT Occupational Therapy Acute Hospital Inpatient Treatment SUBJECTIVE Patient's Name: Kalen Vega Referring/Attending Provider: Boubacar Brock M.D. Reason for Referral: Occupational Therapy Evaluation and Treatment History of Present Illness: Kalen Vega is a 83 y.o. male who was admitted to [facility] in [place] on 08/13/2023 for Hematuria [R31.9]. Precautions Other Precautions: Abdominal, fall precautions, monitor tachycardia and hypertension Pain Assessment: Pain not reported during session. Subjective Comments: Agreeable to therapy session. Team Communication: The patient's status was discussed and coordination of care occurred with RN, Family/Caregiver, nurse tech Family/Caregiver Present: son and [id number] OBJECTIVE Vital Signs: Vitals not formally assessed during session. No concerns during chart review and the patient had nosigns or symptoms consistent with vital changes during therapy session. Outcome Measures: [facility] Inpatient Short Form: Putting on and [...] at or below 17 Clinicians answer the [facility] Inpatient Short Form based on observed [...] through pant leg first. - Adaptive Equipment: Shingle Inspector TOILETING - Assist Level: Maximal Assist - [...] (Edge of bed) - Assist Level: Modified [place] - Equipment: bed rail - Therapist Delivery: assessed, instructed, assisted - Adaptive Equipment: leg sub acute care nurse trialed ; however, patient able to move [...] extremity (stiff knee) first. Recommended adaptive equipment: Shingle Inspector. Toileting - Patient instructed on accurate positioning [...] maximal exertion Handouts provided: Bathroom Safety Equipment [id number], Techniques to Help You Save Energy [id number] Patient was left in bedside chair with [...] Chary Diamond M.A., O.T., BCP * Damaris Mena R.N. - 08/25/2023 11:37 AM CDT SUBJECTIVE Discharge planning - Home health care OBJECTIVE Patient is admitted in [place] 6C -room 121 ASSESSMENT / PLAN JOINTER SUBMARINE CABLEservices account manager met with patient and son Kar to inform them of home health care acceptance for PT/OT. Patient's son Kar and [id number] will provide transportation at the time of discharge. PLAN Patient to discharge home with home health care. Home Medical Care - Admitted Since 08/13/2023 Service Provider Selected Services Address Phone Fax Patient [facility] [address] [facility] [phone] -- [employer] Fabricator Assembler: Ghazal NURSING: - Complete documentation in the Discharge Navigator including Nursing Report Info and Facility/NextLevel of Care Info - Call report and arrange for the patient's first visit - Send After Visit Summary and required packet of dismissal information with patient, including advance directive. PRIMARY SERVICE: - Please provide a non-[facility] home health order for: physical therapy and [...] be provided by family--patient's son Kar and [id number]. 3. labor delivery specialist recommended reaching out to family, friends, and neighbors for assistance. 4. labor delivery specialist provided information regarding the dismissal process. Damaris [...] with patient #1 Hematuria Please page [facility] ([phone]) or [facility] ([phone]) Nutrition Support Service pager with questions. * Emeterio Buchanan P.T., D.P.T., GCS - 08/25/2023 9:35 AM CDT Physical Therapy Inpatient Treatment SUBJECTIVE Patient's Name: Kalen Vega Referring/Attending Provider: Boubacar Brock M.D. Reason for Referral: Physical Therapy Evaluate and Treat History of Present Illness: Kalen Vega is a 83 y.o. male who was admitted to [facility] in [place] on 08/13/2023 for Hematuria [R31.9] Precautions Other [...] throughout session; within normal ranges. Outcome Measures: [facility] Inpatient Short Form: -[facility] Basic Mobility (V.2) How [...] 3-5 steps with a railing?: A Little -[facility] Basic Mobility (V.2) Raw Score: 18 -[facility] Basic Mobility (V.2) Standardized Score: 41.05 Interpretation: Based on scoring guidelines using the raw score value: Those going to home had an average score at or above 18 Those going to facility had an average score at or below 17 Clinicians answer the -[facility] Inpatient Short Form based on observed patient activity and/or clinical judgement (ie. patient can be scored without physically performing each activity) Therapeutic Interventions: SIT TO STAND x3: Assistance Level: Supervision static safe house fit with adult there which they usually Chenega's with a difference educated fully know who [...] - 08/25/2023 9:18 AM CDT Occupational Therapy [facility] Hospital Inpatient Treatment SUBJECTIVE Patient's Name: Kalen Vega Referring/Attending Provider: Boubacar Brock M.D. Reason for Referral: Occupational Therapy Evaluation and Treatment History of Present Illness: Kalen Vega is a 83 y.o. male who was admitted to [facility] in [place] on 08/13/2023 for Hematuria [R31.9]. Precautions Other Precautions: Abdominal, fall precautions, monitor tachycardia and hypertension Pain Assessment: Pain not reported during session. Subjective Comments: Agreeable to therapy session. Team Communication: The patient's status was discussed and coordination of care occurred with RN, PT OBJECTIVE Vital Signs: Vitals monitored throughout session; within normal ranges. Outcome Measures: [facility] Inpatient Short Form: Putting on and [...] at or below 17 Clinicians answer the [facility] Inpatient Short Form based on observed [...] including figure four technique. Recommended adaptive equipment: Shingle Inspector and Sock Aid. Toileting - Patient instructed [...] and modification tools as needed including leg sub acute care nurse and/or bed adjustments. Bathroom DME: - Educated [...] in place draining clear yellow urine I/O ([id number]): Fifty-five cc serosanguineous from the drain 1 [...] CBI. He was subsequently transferred to [facility] 08/12 for difficulty irrigating his [...] 2.5 mg BID eliquis initiated 08/15 per [facility] med curbside recs --transition from [...] have him follow up with his local server security administrator Comorbidities: --history of DVT status post IVC [...] Meds: None Consults: TPMari, KESHIA Hernandez M.D. 08/25/2023 Please page the Urology Chief Service with questions or concerns. Patient seen and discussed with Dr. Venegas, chief urology resident cotton header. Pager during business hours: [phone] Pager after hours: [phone] * Emeterio Buchanan P.T., D.P.T., [facility] - 08/24/2023 10:46 AM CDT Physical Therapy Inpatient Treatment SUBJECTIVE Patient's Name: Kalen Vega Referring/Attending Provider: Boubacar Brock M.D. Reason for Referral: Physical Therapy Evaluate and Treat History of Present Illness: Kalen Vega is a 83 y.o. male who was admitted to [facility] in [place] on 08/13/2023 for Hematuria [R31.9] Precautions Other [...] %, and O2flow: Room air Outcome Measures: -[facility] Inpatient Short Form: AM-[facility] Basic Mobility (V.2) How [...] 3-5 steps with a railing?: A Lot AM-[facility] Basic Mobility (V.2) Raw Score: 17 AM-[facility] Basic Mobility (V.2) Standardized [...] baseline. PT Goal #2: Patient will perform nnk-vx-dlqan transfer with modified independence and least restrictive [...] Total Kcal/day: 1370 based on 84 % Garcia-Elkin Non-standard additives: K 80 mEq Phos 30 [...] phosphorus tomorrow. #1 Hematuria Please page [facility] ([phone]) or [facility] ([phone]) Nutrition Support Service pager with questions. * Paula Hernandez M.D. - 08/24/2023 6:13 AM CDT UROLOGY CHIEF SERVICE PROGRESS NOTE SUBJECTIVE Kalen Craig Galeasheber was seen by the team during morning [...] catheter in place draining light smith I/O ([id number]): Forty-two cc serosanguineous from the drain 2.2 [...] CBI. He was subsequently transferred to [facility] 08/12 for difficulty irrigating his [...] as needed as patient continuesrecovering from surgery --STEVEN MAYORGA obtained 5/8 PM due to patient's sustained [...] have him follow up with his local server security administrator Comorbidities: --history of DVT status post IVC [...] discussed with Dr. Venegas, chief urology resident cotton header. Pager during business hours: [phone] Pager after hours: [phone] * Deanne Mike L.G.S.Melinda, M.S.W. - 08/23/2023 11:25 AM CDT SUBJECTIVE Social Work spoke with [facility]. They cannot provide prison at this time. [...] discharge date of 08/24/23-08/26/23. Referrals sent: [facility] [place] [facility] (out of service area) [facility] ASSESSMENT / PLAN ASSESSMENT Patient has robust family support including a son living with him. PLAN Patient desires home health care through [facility]. Social Work will continue to follow to provide support. Social Work will continue to assist with discharge needs. Shorty Sun, M.S.W. 08/23/23 * Jazmine Benítez R.N., C.W.C.N. - 08/23/2023 11:10 AM CDT [facility] Wound RN consulted to assess Kalen [...] stent and hematuria who is transferred from [facility] with 3 days of hematuria and [...] None Unable to Measure Y *Wound Bed Closed;[place];Red Tissue Exposed None Odor None *Exudate Amount [...] 30 minutes > 30 minutes Ongoing management Nursing;Wound/director of hospitality Partial head to toe skin assessment completed [...] concerns. Electronically signed by: Jazmine Benítez R.N., Mark.W.CJonahNJonah 08/23/23 11:10 AM CDT * Emeterio Buchanan P.T., D.P.T., [facility] - 08/23/2023 11:02 AM CDT Physical Therapy Inpatient Treatment SUBJECTIVE Patient's Name: Kalen Vega Referring/Attending Provider: Boubacar Brock M.D. Reason for Referral: Physical Therapy Evaluate and Treat History of Present Illness: Kalen Vega is a 83 y.o. male who was admitted to [facility] in [place] on 08/13/2023 for Hematuria [R31.9] Precautions Other [...] 3-5 steps with a railing?: A Lot [facility] Basic Mobility (V.2) Raw Score: 17 [facility] Basic Mobility (V.2) Standardized Score: 39.67 Interpretation: Based on scoring guidelines using the raw score value: Those going to home had an average score at or above 18 Those going to facility had an average score at or below 17 Clinicians answer the [facility] Inpatient Short Form based on observed [...] Barriers to Discharge Comments: Patient could have 01/11 supervision from family if necessary. From a [...] baseline. PT Goal #2: Patient will perform gmq-wz-xyrnf transfer with modified independence and least restrictive [...] D.P.T., GCS * Demarco Salazar PharmJonahDJonah, R.Ph., [facility] - 08/23/2023 10:19 AM CDT Pharmacist Progress [...] Total Kcal/day: 1370 based on 84 % Garcia-Elkin Non-standard additives: MAX chloride Thiamine 100 mg [...] phosphorus tomorrow. #1 Hematuria Please page [facility] ([phone]) or [facility] ([phone]) Nutrition Support Service pager with questions. * Ivy Hernandez O.T. - 08/23/2023 8:30 AM CDT Occupational Therapy [facility] Inpatient Treatment SUBJECTIVE Patient's Name: Kalen Vega Referring/Attending Provider: Boubacar Brock M.D. Reason for Referral: Occupational Therapy Evaluation and Treatment History of Present Illness: Kalen Vega is a 83 y.o. male who was admitted to [facility] in [place] on 08/13/2023 for Hematuria [R31.9]. Precautions Other Precautions: Abdominal, fall precautions, monitor tachycardia and hypertension Pain Assessment: Pain not reported during session. Subjective Comments: Agreeable to therapy session. Team Communication: The patient's status was discussed and coordination of care occurred with RN, PT OBJECTIVE Vital Signs: Vitals monitored throughout session; within normal ranges. Outcome Measures: [facility] Inpatient Short Form: Putting on and [...] at or below 17 Clinicians answer the [facility] Inpatient Short Form based on observed [...] Total Treatment Time (min): 39 min Ivy Malosky, O.T. * Paula Hernandez M.D. - 08/23/2023 [...] catheter in place draining clear yellow I/O ([id number]): 73 cc serosanguineous from the drain Seven [...] CBI. 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 [facility] Summary: Diet: NPO, TPN Activity: [...] discussed with Dr. Venegas, chief urology resident cotton header. Pager during business hours: [phone] Pager after hours: [phone] * Chary Diamond M.A., O.T., BCP - [...] [facility] Social Work sent referral. OBJECTIVE Patient is anticipated to remain at [facility] for 3-5 days. Referrals sent: [facility] ASSESSMENT / PLAN ASSESSMENT Patient has robust family support including a son living with him. PLAN Patient desires home health care through [facility]. Social Work will continue to follow to provide support. Social Work will continue to assist with discharge needs. Shorty Sun, M.S.W. 08/22/23 * DewayneEmeterio P.T., D.P.T., GCS - 08/22/2023 2:27 PM CDT Physical Therapy Inpatient Treatment SUBJECTIVE Patient's Name: Kalen Vega Referring/Attending Provider: Boubacar Brock M.D. Reason for Referral: Physical Therapy Evaluate and Treat History of Present Illness: Kalen Vega is a 83 y.o. male who was admitted to [facility] in [place] on 08/13/2023 for Hematuria [R31.9] Precautions Other [...] hypotension or respiratory distress. . Outcome Measures: AM-PAC Inpatient Short Form: AM-PAC [...] 3-5 steps with a railing?: A Lot [facility] Basic Mobility (V.2) Raw Score: 17 [facility] Basic Mobility (V.2) Standardized Score: 39.67 Interpretation: Based on scoring guidelines using the raw score value: Those going to home had an average score at or above 18 Those going to facility had an average score at or below 17 Clinicians answer the [facility] Inpatient Short Form based on observed [...] baseline. PT Goal #2: Patient will perform gnv-rw-uahat transfer with modified independence and least restrictive [...] Buchanan P.T., D.P.T., GCS * Demarco Salazar, D., R.Ph., [facility] - 08/22/2023 10:57 AM CDT Pharmacist Progress [...] Total Kcal/day: 1370 based on 84 % Garcia-Elkin Non-standard additives: MAX chloride Thiamine 100 mg [...] place draining light smith colored urine I/O ([id number]): CBI on slow drip 75 cc serosanguineous [...] CBI. He was subsequently transferred to [facility] 08/12 for difficulty irrigating his [...] have him follow up with his local server security administrator Comorbidities: --history of DVT status post IVC [...] discussed with Dr. Venegas, chief urology resident cotton header. Pager during business hours: [phone] Pager after hours: [phone] * Qamar Jim PharmDayday, R.Ph. - 08/21/2023 10:43 AM CDT Images [...] place draining clear smith colored urine I/O ([id number]): 1800 cc urine output 75 cc serosanguineous [...] CBI. He was subsequently transferred to [facility] 08/12 for difficulty irrigating his [...] clear smith colored urine -incision closed with aryshawn given history of radiation -NG tube was [...] as needed as patient continuesrecovering from surgery --STEVEN MAYORGA obtained 8 PM due to patient's sustained tachycardia in [...] have him follow up with his local server security administrator Comorbidities: --history of DVT status post IVC [...] discussed with Dr. Venegas, chief urology resident cotton header. Pager during business hours: [phone] Pager after hours: [phone] * Lizette Harvey M.D. - 08/20/2023 8:08 [...] draining clear thin merlot colored urine I/O ([id number]): 240 cc p.o. intake 760 cc urine [...] CBI. He was subsequently transferred to [facility] 08/12 for difficulty irrigating his [...] 2.5 mg BID eliquis initiated 08/15 per [facility] med curbside recs --transition from [...] have him follow up with his local server security administrator Comorbidities: --history of DVT status post IVC [...] tamsulosin, rosuvastatin Held Home Meds: None Consults: POWER Harvey M.D. 08/20/2023 Please page the Urology Chief Service with questions or concerns. Pager during business hours: [phone] Pager after hours: [phone] * Qamar Jim PharmDayday, R.Ph. - 08/20/2023 7:46 AM CDT Images [...] Jim Pharm.D., R.Ph. * Lisa Seaman, O.T., MOT - 08/19/2023 2:26 PM CDT Occupational Therapy Acute Hospital Inpatient Treatment SUBJECTIVE Patient's Name: Kalen Vega Referring/Attending Provider: Boubacar Brock M.D. Reason for Referral: Occupational Therapy Evaluation and Treatment History of Present Illness: Kalen Vega is a 83 y.o. male who was admitted to [facility] in [place] on 08/13/2023 for Hematuria [R31.9]. Precautions Other Precautions: Abdominal, fall precautions, monitor tachycardia and hypertension Pain Assessment: Pain not reported during session. Subjective Comments: Patient greeted in chair and agreeable to therapy session. Team Communication: The patient's status was discussed and coordination of care occurred with RN OBJECTIVE Vital Signs: Vitals monitored throughout session; within normal ranges. Outcome Measures: [facility] Inpatient Short Form: Putting on and [...] at or below 17 Clinicians answer the [facility] Inpatient Short Form based on observed [...] about patient's nutritional care please contact pager [phone] on weekdays or [phone] on weekends/holidays. NUTRITION ASSESSMENT: Mr. Vega is [...] care everywhere) ESTIMATED NEEDS: Total Calorie Needs: 9676-9734 calories/day Method to Estimate Energy Needs: kcal/kg [...] Sun, M.S.W. 08/20/23 * Scott Pina P.T., Craig.P.T. - 08/19/2023 11:07 AM CDT Physical Therapy Inpatient Treatment SUBJECTIVE Patient's Name: Kalen Vega Referring/Attending Provider: Boubacar Brock M.D. Reason for Referral: Physical Therapy Evaluate and Treat History of Present Illness: Kalen Vega is a 83 y.o. male who was admitted to [facility] in [place] on 08/13/2023 for Hematuria [R31.9] Precautions Other [...] mmHg O2: 96% Room air Outcome Measures: [facility]: [facility] CENTER Basic Mobility (V.2) How [...] 3-5 steps with a railing?: A Little [facility] Basic Mobility (V.2) Raw Score: 18 -[facility] Basic Mobility (V.2) Standardized Score: 41.05 Interpretation: Based on scoring guidelines using the raw score value: Those going to home had an average score at or above 18 Those going to facility had an average score at or below 17 Clinicians answer the [facility] Inpatient Short Form based on observed [...] Ongoing PT Goal #2: Patient will perform sqh-cx-qtwpl transfer with modified independence and least restrictive [...] Scott Pina P.T., D.P.T. * Chance Cassidy PharmDayday, R.Ph. - 08/19/2023 9:28 AM CDT Images [...] aPTT guidance document in [employer]MayoExpert. Marie Cassidy, PharmJonahDJonah, R.Ph. Addendum at 14:08: aPTT Results (Past [...] 45 cc serosanguineous drainage. OBJECTIVE Vital signs: VIVIAN continues to have intermittent tachycardia Physical Exam: General: No acute distress Neuro: Alert and oriented, no gross deficits. Cardiovascular: Regular rate. Pulmonary: Normal respiratory effort. Abdomen: Non-tender, non-distended. Wound VAC in place holding suction : Tabares catheter in place draining clear pink urine I/O ([id number]): 370 p.o. intake 1 L urine output [...] CBI. He was subsequently transferred to [facility] 08/12 for difficulty irrigating his [...] 2.5 mg BID eliquis initiated 08/15 per [facility] med curbside recs --transition from [...] have him follow up with his local server security administrator Comorbidities: --history of DVT status post IVC [...] questions or concerns. Pager during business hours: [phone] Pager after hours: [phone] * Lisa Seaman, O.T., [facility] - 08/18/2023 11:15 AM CDT Occupational Therapy [facility] Inpatient Treatment SUBJECTIVE Patient's Name: Kalen Vega Referring/Attending Provider: Boubacar Brock M.D. Reason for Referral: Occupational Therapy Evaluation and Treatment History of Present Illness: Kalen Vega is a 83 y.o. male who was admitted to [facility] in [place] on 08/13/2023 for Hematuria [R31.9]. Precautions Other [...] pressure: 168/97 - nurse notified Outcome Measures: [facility] Inpatient Short Form: Putting on and [...] at or below 17 Clinicians answer the [facility] Inpatient Short Form based on observed [...] doffing over it last. Recommended adaptive equipment: Shingle Inspector and Sock Aid. Patient was left in bedside chair, with nursing/SUPERINTENDENT RENTING MANAGING at end of session with call light [...] Lisa Seaman O.T., JODY * Scott Pina P.T., D.P.T. - 08/18/2023 8:18 AM CDT Physical Therapy Inpatient Treatment SUBJECTIVE Patient's Name: Kalen Vega Referring/Attending Provider: Boubacar Brock M.D. Reason for Referral: Physical Therapy Evaluate and Treat History of Present Illness: Kalen Vega is a 83 y.o. male who was admitted to [facility] in [place] on 08/13/2023 for Hematuria [R31.9] Precautions Other [...] vital signs with primary service. Outcome Measures: AM-PAC Inpatient Short Form: AM-PAC [...] 3-5 steps with a railing?: A Little AM-[facility] Basic Mobility (V.2) Raw Score: 18 [facility] Basic Mobility (V.2) Standardized Score: 41.05 Interpretation: Based on scoring guidelines using the raw score value: Those going to home had an average score at or above 18 Those going to facility had an average score at or below 17 Clinicians answer the [facility] Inpatient Short Form based on observed [...] following coordination of care occurred with the manufacturing clerk/Caregiver Present: No Patient was left in bedside [...] Progressing PT Goal #2: Patient will perform vde-gg-vkrfd transfer with modified independence and least restrictive [...] Scott Pina P.T., D.P.T. * Aziza Cortez, D., R.Ph. - 08/18/2023 7:59 AM CDT Pharmacist [...] infusion per aPTT for apixaban admin, last 08/16 AM. aPTT 61 this morning. GI-no bowel regimen, takes none at home, not currently receiving opioids ASSESSMENT / PLAN Heparin infusion reduced to 13 units/kg/hr, recheck aPTT in 6 hours per protocol. Vasc med consulted Cards recs resume clopidogrel when able Med profile reviewed. Aziza Cortez Pharm.D., R.Ph. Afternoon aPTT = 64, reduced rate [...] in place draining clear pink urine I/O ([id number]): 1.2 L p.o. intake 1 L urine [...] CBI. He was subsequently transferred to [facility] 08/12 for difficulty irrigating his [...] 2.5 mg BID eliquis initiated 08/15 per [facility] med curbside recs --transition from [...] diet later today follow up vascular medicine [facility] Summary: Diet: currently limited clears Activity: Ad kong DVT PPX: heparin drip GI PPX: Pantoprazole Bowel Regimen:N/A IVF: none Abx/Microbiology: Ceftriaxone Pain Control: Tylenol, oxycodone 08/18. Scheduled trospium Home Meds Resumed: Metoprolol, tamsulosin, rosuvastatin Held Home Meds: None Consults: None Paula Hernandez M.D. 08/18/2023 6:02 AM CDT Please page the Urology Chief Service with questions or concerns. Pager during business hours: [phone] Pager after hours: [phone] * Tayler Greenwood M.D., M.Ed. - 08/17/2023 [...] surgery. Tayler Greenwood MD, MEd * Alia Ruelas, Pharm.D., R.Ph., BCPS - 08/17/2023 6:08 PM [...] bleeding after re-initiation we will reengage them. Theyalso recommended the patient follow up with his primary server security administrator at discharge we will which we will [...] Status: Pharmacy Complete Set By: Irvin Franco PharmDayday, R.Ph. at 08/14/2023 10:22 AM Taking? Last [...] restart home enzalutamide today (own supply). Marie Cassidy Pharm.D., R.Ph. INPATIENT MED LIST: acetaminophen, 650 [...] Ringer's Lactated Ringer's * Lisa Seaman, O.T., [facility] - 08/17/2023 10:47 AM CDT Occupational Therapy [facility] Inpatient Treatment SUBJECTIVE Patient's Name: Kalen Vega Referring/Attending Provider: Boubacar Brock M.D. Reason for Referral: Occupational Therapy Evaluation and Treatment History of Present Illness: Kalen Vega is a 83 y.o. male who was admitted to [facility] in [place] on 08/13/2023 for Hematuria [R31.9]. Precautions Other Precautions: abdominal; fall risk; watch HR Pain Assessment: Pain not reported during session. Subjective Comments: Patient greeted in bed and agreeable to therapy session. Team Communication: The patient's status was discussed and coordination of care occurred with RN OBJECTIVE Vital Signs: Vitals taken during session: Pulse rate: 102-128 bpm Outcome Measures: AM-PAC Inpatient Short Form: Putting [...] at or below 17 Clinicians answer the [facility] Inpatient Short Form based on observed [...] Time (min): 24 min Lisa Seaman O.T., JODY * Paula Hernandez M.D. - 08/17/2023 6:02 [...] in place draining clear pink urine I/O ([id number]): NG tube 200 cc Two hundred sixty-five [...] CBI. He was subsequently transferred to [facility] 08/12 for difficulty irrigating his [...] held since 08/11) -discussed with vascular Medicine [facility] 08/15 regarding ongoing anticoagulation/antiplatelet. Theyfelt he no [...] questions or concerns. Pager during business hours: [phone] Pager after hours: [phone] * Audi De Luna P.T., D.P.T. - 08/16/2023 3:05 PM CDT 08/16/23 1505 Reason Therapy Missed Reason Therapy Missed Receiving other care Patient receiving blood products during morning attempt, with another provider in PM. Will re-attempt tomorrow or as able. Audi De Luna, PT, DPT * Palua Hernandez M.D. - 08/16/2023 6:02 AM CDT [...] in place draining clear pink urine I/O ([id number]): NG tube 200 cc Two hundred sixty-five [...] CBI. He was subsequently transferred to [facility] 08/12 for difficulty irrigating his [...] questions or concerns. Pager during business hours: [phone] Pager after hours: [phone] * Paula Hernandez M.D. - 08/15/2023 9:09 AM CDT PROGRESS NOTE: No events. AFVSS. Pain controlled. No flatus. No further emesis overnight. Abdomen more distended than yesterday but remained soft, tender to deep palpation only, no rebound. Twenty-four Pakistani Alcock three-way catheter remains off CBI, draining [...] CBI. He was subsequently transferred to [facility] 08/12 for difficulty irrigating his [...] risks associated with surgery and anesthesia including VA, stroke, and VTE were also discussed. Finally, [...] above was discussed with Dr. Brock, urology computer consultant on-call who is in agreement with [...] Family to bring his home enzalutamide from [place] Irvin Franco Pharm.D., R.Ph. * Jakob De Paz M.D. - 08/14/2023 11:34 AM CDT PROGRESS NOTE: No events. AFVSS. Pain controlled. No flatus. Nauseous and had 2 episodes of emesis. Abdomen more distended than yesterday but remained soft, tender to deep palpation only, no rebound. Twenty-four Pakistani Alcock three-way catheter remains off CBI, draining [...] CBI. He was subsequently transferred to [facility] 08/12 for difficulty irrigating his [...] SCDs, ambulation - Tentative plan for OR 08/14 for formal bladder closure, right ureteral stent exchange The above was discussed with Dr. Brock, urology computer consultant on-call who is in agreement with [...] Patient discussed with Dr. Sylvester. Page CCM3 [id number] Carlos Alberto Henson M.D. PGY-1 CCM 3 [...] and clopidogrel for CAD s/p stent Irvin rFanco Pharm.D., R.Ph. documented in this encounter H&P [...] who have asked we place a 24 Pakistani 3-way urinary catheter pending evaluation. We will [...] and hematuria who is transferred from [facility] ED with 3 days of hematuria [...] him to present to local hospital in [place]. OSH Course: His hemoglobin was in the [...] Insecurity: No Food Insecurity (02/16/2022) Received from [employer] [facility] Food Insecurity Worried About Running Out of Food in the Last Year: 1 Transportation Needs: No Transportation Needs (02/16/2022) Received from [employer] [facility] Transportation Needs Lack of Transportation (Medical): 1 Housing Stability: Low Risk (02/16/2022) [facility] Housing Stability Unable to Pay for [...] placed 2016 Type and screen CBC q12h Transfuse Hgb < 7 ACCESS: PIV x2 Date 08/13/23 3-way Tabares DISPO Code Status: Full ICU level of cares. Family updated on 08/13/[address] Sylvester and Dr. Rodriguez. Page CCM3 [id number] Carlos Alberto Henson M.D. PGY-1 CCM 3 [...] As expected PRIMARY PROCEDURALIST FAY Cerna MD [phone] ASSISTANTS none COMPLICATIONS None. DRAINS None. IMPLANTS [...] peripheral vein targets. Ultrasound used for assessment: [employer] Fit Provider contacted (include name): Uro Surg [...] STENT EXCHANGE; Surgeon: Boubacar Brock M.D.; Location: [facility] ROMB OR FAMILY HISTORY No family history [...] 14 -- AST U/L 25 -- Radiology: @[id number]@ Swallow Assessment: No data to display ASSESSMENT / PLAN #1 Hematuria ASSESSMENT Currently we are asked to visit with Mr. Vega for consideration of parenteral nutrition. Nutrition Needs: Height: 180 cm Admission Weight: 91.2 kg (08/13/2023) Current Weight: 90.2 kg BMI (Calculated): 27.8 kg/m?? Total Calorie Needs: 8894-8941 calories/day Method to Estimate Energy Needs: Garcia-Elkin ( ) Weight Used for Equation Calculations: [...] on electrolytes Please call NSS pager at [phone] at [facility] or [phone] at [facility] with any additional questions. * Gilbert Johnson M.D. - 08/20/2023 8:05 AM CDTAssociated Order(s): Nutrition support service consult ([facility]) SUBJECTIVE Nutrition support service consult ([facility]) Referring Provider: Lizette Harvey M.D. REASON [...] values in this interval not displayed. Radiology: @[email or web address]@ Swallow Assessment: No data to display ASSESSMENT / PLAN #1 Hematuria ASSESSMENT Currently we are asked to visit with Mr. Vega for consideration of parenteral nutrition. Nutrition Needs: Height: 180 cm Admission Weight: 91.2 kg (08/13/2023) Current Weight: 90.2 kg BMI (Calculated): 27.8 kg/m?? Total Calorie Needs: 0121-8137 calories/day Method to Estimate Energy Needs: kcal/kg [...] on electrolytes Please call NSS pager at [phone] at [facility] or [phone] at [facility] with any additional questions. BILLING/CODING Total visit [...] stent along with other stents and apparently server security administrator in the past I recommended indefinite dual [...] 13 Units/kg/hr (Dosing Weight), intravenous, Continuous, Aziza Cortez, PharmJonahDJonah, R.Ph., Last Rate: 11.9 mL/hr at 08/18/23 0806, 13Units/kg/hr at 08/18/23 0806 Lactated Ringer's, 20 mL/hr, intravenous, Continuous, Frieda Garner APRN, VEGETABLE HANDLER, Last Rate: 20 mL/hr at 08/15/23 1459, [...] but he can discuss this with his server security administrator at home. We need to balance transfusion needs for continued bleedingand risk of recurrent VA if not on Plavix-coronary stents were 6 [...] but call our service if questionsor concerns Anaid Schuster, B.Ch. * Matthieu Reynoso, SPT - 08/17/2023 [...] 83 y.o. male who was admitted to [facility] in [place] on 08/13/2023 for Hematuria [R31.9]. Relevant Medical History: Kalen Vega is a 83 y.o. 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 [...] heels well perfused and intact. Outcome Measures: AM-PAC Inpatient Short Form: -[facility] Basic Mobility (V.2) How [...] 3-5 steps with a railing?: A Lot -[facility] Basic Mobility (V.2) Raw Score: 17 -[facility] Basic Mobility (V.2) Standardized Score: 39.67 Interpretation: Based on scoring guidelines using the raw score value: Those going to home had an average score at or above 18 Those going to facility had an average score at or below 17 Clinicians answer the -[facility] Inpatient Short Form based [...] following coordination of care occurred with the manufacturing clerk/Caregiver Present: SonFavio Patient was left in bedside [...] 83 y.o. male who was admitted to [facility] in [place] on 08/13/2023 for Hematuria with cystotomy and [...] Min assist for mobility. Required assist for gzr-bv-uercr for force generation and is generally standby [...] Ongoing PT Goal #2: Patient will perform huk-wi-yckuo transfer with modified independence and least restrictive [...] - 08/16/2023 10:01 AM CDT Occupational Therapy [facility] Inpatient Evaluation/Treatment SUBJECTIVE Patient's Name: Kalen Vega Referring/Attending Provider: Boubacar Brock M.D. Reason for Referral: Occupational Therapy Evaluation and Treatment PERTINENT MEDICAL / SURGICAL HISTORY: Kalen Vega has no past medical history on file. Kalen Vega has no past surgical history on file. History of Present Illness: Kalen Vega is a 83 y.o. male who was admitted to [facility] in [place] on 08/13/2023 for Hematuria [R31.9]. Relevant Medical [...] with RN, PT Family/Caregiver Present: Son and ppkralpr-bm-fgn. Home Living and Equipment: Lives with: Spouse/Significant [...] walker, Single point cane Adaptive Equipment Owned: Shingle Inspector, Long Handled Shoe Horn Other DME Owned: Regular flat bed Prior Level of Function and Mobility: Basic Activities of Daily Living: Independent Instrumental Activities of Daily Living: Required Assistance: Laundry son assists with laundry and cooking Functional Mobility: Independent Driving: Yes Occupational Role: Retired Leisure Interests: watch movies, plays [employer] train, meets friends for breakfast. Patient/Caregiver Goals: [...] Wears glasses all the time Outcome Measures: [facility] Inpatient Short Form: Putting on and [...] Person(s) present during interview: Patent and patients son, Favio Previous Psychosocial Assessment : No Primary care [...] all are a great support. 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 Patient expressed understanding and was agreeable to [...] conversation with his family when social media designer entered the room. He was engaged in [...] locally at approximately 3:00 a.m. a 22 Pakistani three-way catheter was placed and CBI wasinitiated. Unfortunately he clotted off the catheter multiple times despite manual irrigations, started to develop hypotension and tachycardia [facility] He relays the above [...] non-distended, non-peritonitic Extremities: No edema : 22 Pakistani three-way Tabares catheter draining a minimal amount [...] urinary retention Given his non draining 22 Pakistani three-way catheter the Urology techs and I subsequently exchanged this for a 24 Pakistani three-way Alcock in the usual sterile fashion. [...] to follow [place] [phone] with questions or concerns Sixto Cain M.D. [...] peripheral vein targets. Ultrasound used for assessment: [employer] Fit Provider contacted (include name): Uro Surg [...] or other central line. * Jose Haro M.SNarendra, R.N. - 08/14/2023 12:23 PM CDT Patient Transfer Note Patient transferred to: [facility] Room: [facility] Accompanied by: JAMEL Garcia Report called? [...] signs? YES * Sixto Teague R.R.T., L.R.TJonah, LABOR ECONOMICS PROFESSOR-ACCS - 08/14/2023 7:00 AM CDT Patient is [...] the last 24hours. Sixto Teague R.R.T., L.R.TJonah, LABOR ECONOMICS PROFESSOR-ACCBryon 08/14/23 7:00 AM CDT Electronically signed by Sixto Teague R.R.Cooper, L.R.T., LABOR ECONOMICS PROFESSOR-[facility] at 08/14/2023 7:02 AM CDT * Radha Crespo R.R.TJonah, L.R.T. - 08/13/2023 7:09 PM CDT Patient is a 83 y.o. male admitted on 08/13/2023 Shift Summary: Patient remains room air, and no respiratory issues during the day. PLAN OF CARE: RT will continue to assess respiratory status while in the ICU, and provide respiratory care as needed. Oxygen Therapy: $Delivery Method: Room air Principal Problem #1 Hematuria Electronically signed by: Mayur PatelRJonahTJonah, L.R.TJonah 08/13/23 7:10 PM CDT documented in this encounter OR Notes * Op Note - Jakob De Paz M.D. - 08/15/2023 9:37 AM CDT Pre-op Diagnosis Rupture Bladder Spontaneous Post-op Diagnosis Rupture Bladder Spontaneous Athletic Coach A financial sales assistant actively participated and was necessary [...] the supine flexed position. His existing 24 Pakistani three-way Tabares catheter was noted to be [...] additional tissue for additional coverage. A 24 Pakistani three-way catheter was placed with 15 cc in the balloon. This irrigated to light clear pink. A 15 Pakistani YARELI drain wasplaced into the pelvis exiting left lower quadrant. The fascia was closed with interrupted and prkuqh-oo-bzoqg 0 PDS. Fat was approximated using 3-0 [...] MAR: -LR 1 L Bolus x 2 (08-12) -LR @ 75 cc/hr (08-15 - 08-16) Please contact me if you have questions. Thank you, ELMER Barker, RN, CPN, CCDS, CCS, CRC Clinical Documentation Graphite Grinder Query created by: ELMER Barker, RN, CPN, [...] stent and hematuria who is transferred from [place] ED with 3 days of hematuria & [...] me if you have questions. Thank you, LEMER Barker, RN, CPN, CCDS, CCS, CRC Clinical Documentation Graphite Grinder Query created by: ELMER Barker, RN, CPN, [...] he felt completely obstructed and presented to [place] ED. [place] Course Attempted Tabares insertion but bladder irrigation was unsuccessful on multiple attempts. Hung 1U pRBC's. Given some volume and transferred to [facility] ICU ICU Course Urology consulted [...] CDT Procedure visit Department of Urology in [place], [place] [address] [place] [address] Paula Hernandez M.D. [address] [place] [address] Pending Results Name Type Priority Associated Diagnoses [...] Blood Bank Routine 08/26/2023 6:50 AM CDT documented as of this encounter [...] Reflex Antibody ID) (08/26/2023 6:50 AM CDT) ABORh O Pos Not applicable 08/26/2023 7:16 AM CDT STRM Antibody Screen Negative Negative 08/26/2023 7:29 AM CDT STRM Type & Screen Expiration 08/29/2023 23:59 08/26/2023 7:16 AM CDT STRM Testing Location [place] DEFAULT 08/26/2023 6:57 AM CDT STRM Blood (Blood, Venous) 08/26/2023 6:50 AM CDT 08/26/2023 6:57 AM CDT Narrative Authorizing Provider Result Abdifatah Hernandez M.D. LAB BLOOD BANK TEST ORDERABLES [facility] [address] [place] [address], [facility] STRM [facility] [address] [place] [address] * (ABNORMAL) CBC without Differential (08/26/2023 3:20 [...] CDT Corin Ring M.D. LAB BLOOD ADD-ON [facility] [address] [place], [place] [address] [address] [place] [address] * Magnesium (08/26/2023 3:20 AM CDT) Pathologist [facility] Magnesium, S 2.1 1.7 - 2.3 mg/dL 08/26/2023 4:04 AM CDT DTL Blood (Blood, Venous) 08/26/2023 3:20 AM CDT 08/26/2023 3:50 AM CDT Boubacar K Brock M.D. LAB BLOOD ADD-ON Performing Organization Address City/[facility]/ZIP Co de Phone Number [facility] [address] [place] [address], [facility] DTL [facility] [address] [place] [address] * (ABNORMAL) Renal Function Panel (08/26/2023 3:20 [...] CDT Boubacar Brock M.D. LAB BLOOD ADD-ON [facility] [address] [place] [address], [facility] [address] [place] [address] * Heparin Anti-Xa Assay (08/26/2023 3:20 AM [...] Hoyt M.D. LAB BLOOD NON ADD -ON [facility] [address] [place] [address], [facility] [address] [place] [address] * (ABNORMAL) CBC without Differential (08/25/2023 3:24 AM CDT) Hemoglobin 8.3(L) 13.2 - 16.6 g/dL 08/25/2023 [...] CDT Corin Ring M.D. LAB BLOOD ADD-ON [facility] [address] [place] [address], [facility] [address] [address] * (ABNORMAL) Renal Function Panel (08/25/2023 3:24 AM CDT) Pathologist [facility] Potassium, S 4.1 3.6 - 5.2 mmol/L [...] City/[facility]/ZIP Co de Phone Number [facility] [address] [place], [place] [address] [place] [address] * Magnesium (08/25/2023 3:24 AM CDT) Pathologist [facility] Magnesium, S 2.2 1.7 - 2.3 mg/dL 08/25/2023 4:36 AM CDT DTL Blood (Blood, Venous) 08/25/2023 3:24 AM CDT 08/25/2023 4:19 AM CDT Boubacar Brock M.D. LAB BLOOD ADD-ON Performing Organization Address City/[facility]/ZIP Co de Phone Number [facility] [address] [place] [address], [facility] [address] [place] [address] * Heparin Anti-Xa Assay (08/25/2023 3:24 AM CDT) Pathologist [facility] Heparin Anti-Xa, P 0.31 IU/mL 2023 [...] Boubacar Brock M.D. LAB BLOOD NON ADD-ON [place] [address] [address] [place], [place] [address], [facility] [address] [address] * (ABNORMAL) CBC without Differential (08/24/2023 5:28 AM CDT) [facility] Hemoglobin 8.1(L) 13.2 - 16.6 [...] BLOOD ADD-ON Performing Organization Address City/[facility] Co de Phone Number [facility] [address] [place] [address] * Magnesium (08/24/2023 5:28 AM CDT) Magnesium, S 2.3 1.7 - 2.3 mg/dL 08/24/2023 6:19 AM CDT DTL Blood (Blood, Venous) 08/24/2023 5:28 AM CDT 08/24/2023 6:00 AM CDT Boubacar Brock M.D. LAB BLOOD ADD-ON Performing Organization Address [facility] Co de Phone Number [facility] [address] [place] [address] * (ABNORMAL) Renal Function Panel (08/24/2023 5:28 [...] BLOOD ADD-ON Performing Organization Address [facility]/ZIP Co de Phone Number [facility] [address] [place] [address], [facility] [address] [address] [place] [address] * Heparin Anti-Xa Assay (08/24/2023 5:28 AM [...] City/[facility]/ZIP Co de Phone Number [place] [address] [place], [place] [phone] [place] [address] 200 [place] [address] * (ABNORMAL) Potassium (08/23/2023 9:58 PM CDT) Pathologist [facility] Potassium, S 3.5(L) 3.6 - 5.2 mmol/L 08/23/2023 10:45 PM CDT DT Blood (Blood, Venous) 08/23/2023 9:58 PM CDT 08/23/2023 10:30 PM CDT Boubacar Brock M.D. LAB BLOOD ADD-ON [facility] 200 [place], [place] [address] [place] [address] 200 [place] [address] * (ABNORMAL) Phosphorus Inorganic (08/23/2023 9:58 PM CDT) [facility] Phosphorus (Inorganic), S 2.1(L) 2.5 - 4.5 mg/dL 08/23/2023 10:45 PM CDT DT Blood (Blood, Venous) 08/23/2023 9:58 PM CDT 08/23/2023 10:30 PM CDT Paula Hernandez M.D. LAB BLOOD ADD-ON [facility] [address] 200 [place] [address] * Heparin Anti-Xa Assay (08/23/2023 11:37 AM CDT) [facility] Heparin Anti-Xa, P 0.51 IU/mL 2023 12:42 PM CDT COUNT INCLUDES THE [facility] Comment: UFH therapeutic range: ?? 0.30-0.70 [...] Boubacar Brock M.D. LAB BLOOD NON ADD-ON [facility] [address] [place] [address], [facility] [address] [place] [address] * (ABNORMAL) CBC without Differential (08/23/2023 3:42 AM CDT) [facility] Hemoglobin 8.3(L) 13.2 - 16.6 g/dL [...] CDT Corin Ring M.D. LAB BLOOD ADD-ON [facility] [address] [place] [address] * Triglycerides (08/23/2023 3:42 AM CDT) Triglycerides [...] City/[facility]/ZIP Co de Phone Number [facility] 200 [place], [place] [phone] [place] [address] 200 [place] [address] * Magnesium (08/23/2023 3:42 AM CDT) Magnesium, S 2.2 1.7 - 2.3 mg/dL 08/23/2023 4:50 AM CDT DTL Blood (Blood, Venous) 08/23/2023 3:42 AM CDT 08/23/2023 4:19 AM CDT Boubacar Brock M.D. LAB BLOOD ADD-ON [facility] [address] [place] [address] * (ABNORMAL) Renal Function Panel (08/23/2023 3:42 AM CDT) [facility] Potassium, S 3.1(L) 3.6 - 5.2 [...] CDT Boubacar Brock M.D. LAB BLOOD ADD-ON [facility] [address] [place] [address], [place] [facility] [address] [place] [address] * Heparin Anti-Xa Assay (08/23/2023 3:41 AM [...] City/[facility]/ZIP Co de Phone Number [facility] [address] [place] [address], [facility] [address] [place] [address] * Glucose, POCT (08/22/2023 11:38 PM CDT) Pathologist [facility] Glucose, POCT, B 117 70 - 140 mg/dL 08/23/2023 1:06 AM CDT PCLX Site Capillary 08/23/2023 1:06 AM CDT PCLX Last Intake NPO 08/23/2023 1:06 AM CDT PCLX Blood 08/22/2023 11:3 8 PM CDT 08/23/2023 1:06 AM CDT Unknown Provider LAB POCT ORDERABLES- MANUAL POC [facility] [address] [place] [address], [facility] PCLX [facility] POC [address] [place] [address] * Heparin Anti-Xa Assay (08/22/2023 10:14 PM [...] Boubacar Brock M.D. LAB BLOOD NON ADD-ON [facility] [address] [facility] [address] [place] [address] * CT Abdomen Pelvis without IV Contrast [...] Boubacar Brock M.D. LAB BLOOD NON ADD-ON [facility] [address] [facility] [address] [place] [address] * Creatinine, Body Fluid (08/22/2023 3:30 PM [...] transport rates. All other fluids refer to www.RESAASs.com for further interpretive information. This test has been modified from the clinical nurse occupational medicine's instructions. Its performance characteristics were determined by [facility] in a manner consistent with CLIA requirements. This test has not been cleared or approved by the U.S. Food and Drug Administration. Fluid Type, Creatinine Fluid, Abdomen 08/22/2023 3:52 PM CDT DTL Fluid (Abdomen) 08/22/2023 3 :30 PM CDT 08/22/2023 6:36 PM CDT Corin Ring M.D. LAB BODY FLUIDS AND STOOLS ORDERABLES [facility] [address] [place] [address], [place] DTL [facility] [address] [place] [address] * Transfuse Red Blood Cells : (08/22/2023 [...] of a right IJ vein single-lumen 4 Pakistani tunneled PowerPICC ready for immediate use. NR [...] advanced into the IVC and a 4 Pakistani dilator advanced over the wire and attached to a one-way stopcock. A suitable exit site in the right anterior chest was anesthetized and a small incision made. A 4 Pakistani single-lumen PowerPICC was then tunneled from the [...] Wireadvanced into the IVC and a 4 Pakistani dilator advanced over the wire andattached to a one-way stopcock. A suitable exit site in the right anteriorchest was anesthetized and a small incision made. A 4 Pakistani single-lumen PowerPICC was then tunneled fromthe skin [...] of a right IJ vein single-lumen 4 Pakistani tunneled PowerPICCready for immediate use. NR Kimi [...] BLOOD ADD-ON Performing Organization Address City/[facility] Co de Phone Number [facility] [address] [place], [place] [address] STMA [facility] 200 [place] [address] * Type and Screen (with Reflex Antibody ID) (08/22/2023 2:55 AM CDT) Pathologist [facility] ABORh O Pos Not applicable 08/22/2023 3:25 AM CDT STRM Antibody Screen Negative Negative 08/22/2023 3:38 AM CDT STRM Type & Screen Expiration 08/25/2023 23:59 08/22/2023 3:25 AM CDT STRM Testing Location [place] DEFAULT 08/22/2023 3:07 AM CDT STRM Blood (Blood, Venous) 08/22/2023 2:55 AM CDT 08/22/2023 3:07 AM CDT Latisha Whitehead M.D. LAB BLOOD BANK T EST ORDERABLES Performing Organization Address [facility] Co de Phone Number [facility] [address] [place] [address], [facility] STRM [facility] 200 [place] [address] * (ABNORMAL) Comprehensive Metabolic Panel (08/22/2023 2:40 AM CDT) Pathologist [facility] Potassium, S 3.2(L) 3.6 - 5.2 [...] CDT Latisha Whitehead M.D. LAB BLOOD ADD-ON [facility] [address] [place] [address] * Heparin Anti-Xa Assay (08/22/2023 2:40 AM CDT) Pathologist [facility] Heparin Anti-Xa, P 0.47 IU/mL 2023 3:28 AM CDT COUNT INCLUDES THE [facility] Comment: UFH therapeutic range: ?? 0.30-0.70 [...] City/[facility]/ZIP Co de Phone Number [facility] 200 [place], [place] [phone] [place] [address] 200 [place] [address] * (ABNORMAL) APTT (Activated Partial Thromboplastin Time) (08/22/2023 2:40 AM CDT) Pathologist [facility] Activated Partial Thrombopl Time, P 64(H) 25 - 37 sec 08/22/2023 3:12 AM CDT STMA Blood (Blood, Venous) 08/22/2023 2:40 AM CDT 08/22/2023 3:01 AM CDT Latisha Whitehead M.D. LAB BLOOD ADD-ON [facility] [address] [place] [address] * Triglycerides (08/21/2023 7:32 AM CDT) Triglycerides 98 mg/dL 08/21/2023 9:03 AM CDT DTL Comment: ----REFERENCE VALUE---- Normal: <150 mg/dL Borderline High: 150-199 mg/dL High: 200-499 mg/dL Very High: > or =500 mg/dL Fasting (8 HR or more) Unknown 08/21/2023 8:38 AM CDT DTL Blood (Blood, Venous) 08/21/2023 7:32 AM CDT 08/21/2023 8:38 AM CDT Lizette Harvey M.D. LAB BLOOD ADD-O N [facility] [address] [place] [address] * Phosphorus Inorganic (08/21/2023 7:32 AM CDT) Pathologist [facility] Phosphorus (Inorganic), S 2.6 2.5 - 4.5 mg/dL 08/21/2023 9:03 AM CDT DTL Blood (Blood, Venous) 08/21/2023 7:32 AM CDT 08/21/2023 8:38 AM CDT Lizette Harvey M.D. LAB BLOOD ADD-O N [facility] [address] [place] [address] * Magnesium (08/21/2023 7:32 AM CDT) Magnesium, S 2.3 1.7 - 2.3 mg/dL 08/21/2023 9:03 AM CDT DTL Blood (Blood, Venous) 08/21/2023 7:32 AM CDT 08/21/2023 8:38 AM CDT Lizette Harvey M.D. LAB BLOOD ADD-O N [facility] [address] [place] [address], [facility] DTL [facility] [address] [place] [address] * (ABNORMAL) Basic Metabolic Panel (08/21/2023 7:32 [...] LAB BLOOD ADD-O N Performing Organization Address [facility] Co de Phone Number [facility] [address] [place], [place] [phone] [place] [address] [facility] 200 [place] [address] * (ABNORMAL) CBC without Differential (08/21/2023 7:32 [...] City/[facility]/ZIP Co de Phone Number [facility] [address] [place] [address], [facility] 200 [place] [address] * Heparin Anti-Xa Assay (08/21/2023 7:32 AM [...] LAB BLOOD NON ADD-ON Performing Organization Address [facility]/ZIP Co de Phone Number [facility] [address] [place] [address] * (ABNORMAL) APTT (Activated Partial Thromboplastin Time) (08/21/2023 7:32 AM CDT) Activated Partial Thrombopl Time, P 49(H) 25 - 37 sec 08/21/2023 8:31 AM CDT DT Blood (Blood, Venous) 08/21/2023 7:32 AM CDT 08/21/2023 8:06 AM CDT Boubacar Brock M.D. LAB BLOOD ADD-ON Performing Organization Address [facility] Co de Phone Number [facility] [address] [place] [address] * Place peripherally inserted central catheter (PICC) [...] same-day CT. Rightureteral stent. Lizette Harvey M.D. IM DIAGNOSTIC IMAGING PROCEDURES * CT Abdomen Pelvis [...] the atrophic right kidney. Lizette Harvey M.D. [facility] CT PROCEDUR ES * (ABNORMAL) Basic Metabolic Panel (08/20/2023 3:19 AM CDT) Pathologist [facility] Potassium, S 3.7 3.6 - 5.2 [...] City/[facility]/ZIP Co de Phone Number [facility] [address] [place] [address], [facility] 200 [place] [address] * (ABNORMAL) CBC without Differential (08/20/2023 3:19 [...] CDT Paula Hernandez M.D. LAB BLOOD ADD-ON [facility] [address] [place] [address] * (ABNORMAL) APTT (Activated Partial Thromboplastin Time) (08/20/2023 3:19 AM CDT) Activated Partial Thrombopl Time, P 52(H) 25 - 37 sec 08/20/2023 4:33 AM CDT DTL Blood (Blood, Venous) 08/20/2023 3:19 AM CDT 08/20/2023 4:10 AM CDT Boubacar Brock M.D. LAB BLOOD ADD-ON Performing Organization Address City/[facility]/ZIP Co de Phone Number [facility] [address] [place] [phone] [place] [address] 200 [place] [address] * (ABNORMAL) APTT (Activated Partial Thromboplastin Time) (08/19/2023 10:57 AM CDT) Pathologist [facility] Activated Partial Thrombopl Time, P 54(H) 25 - 37 sec 08/19/2023 11:44 AM CDT DTL Blood (Blood, Venous) 08/19/2023 10:57 AM CDT 08/19/2023 11:26 AM CDT Boubacar Brock M.D. LAB BLOOD ADD-ON [facility] 200 [place], [place] [phone] [place] [address] 200 [place] [address] * (ABNORMAL) APTT (Activated Partial Thromboplastin Time) (08/19/2023 4:51 AM CDT) Activated Partial Thrombopl Time, P 59(H) 25 - 37 sec 08/19/2023 5:53 AM CDT DTL Blood (Blood, Venous) 08/19/2023 4:51 AM CDT 08/19/2023 5:36 AM CDT Boubacar Brock M.D. LAB BLOOD ADD-ON Performing Organization Address City/[facility]/ZIP Co de Phone Number [facility] [address] [place], [place] [address] [place] [address] 200 [place] [address] * (ABNORMAL) APTT (Activated Partial Thromboplastin Time) (08/18/2023 10:03 PM CDT) Activated Partial Thrombopl Time, P 63(H) 25 - 37 sec 08/18/2023 10:41 PM CDT DTL Blood (Blood, Venous) 08/18/2023 10:03 PM CDT 08/18/2023 10:19 PM CDT Boubacar Brock M.D. LAB BLOOD ADD-ON Performing Organization Address [facility] Co de Phone Number [facility] [address] [place], [place] [phone] [place] [address] 200 [place] [address] * (ABNORMAL) APTT (Activated Partial Thromboplastin Time) (08/18/2023 2:50 PM CDT) [facility] Activated Partial Thrombopl Time, P 64(H) 25 - 37 sec 08/18/2023 3:25 PM CDT DTL Blood (Blood, Venous) 08/18/2023 2:50 PM CDT 08/18/2023 3:07 PM CDT Boubacar Brock M.D. LAB BLOOD ADD-ON Performing Organization Address City/[facility]/ZIP Co de Phone Number [facility] [address] [place], [place] [phone] [place] [address] 200 [place] [address] * (ABNORMAL) APTT (Activated Partial Thromboplastin Time) (08/18/2023 6:42 AM CDT) Activated Partial Thrombopl Time, P 61(H) 25 - 37 sec 08/18/2023 7:28 AM CDT DTL Blood (Blood, Venous) 08/18/2023 6:42 AM CDT 08/18/2023 7:04 AM CDT Boubacar Brock M.D. LAB BLOOD ADD-ON [facility] 200 [place] [address], [facility] 200 [place] [address] * (ABNORMAL) APTT (Activated Partial Thromboplastin Time) (08/17/2023 11:04 PM CDT) Pathologist [facility] Activated Partial Thrombopl Time, P 40(H) 25 - 37 sec 08/17/2023 11:46 PM CDT DT Blood (Blood, Venous) 08/17/2023 11:04 PM CDT 08/17/2023 11:31 PM CDT Boubacar Brock M.D. LAB BLOOD ADD-ON Performing Organization Address City/State/[facility] Co de Phone Number [facility] 200 [place] [address], [facility] 200 [place] [address] * US Lower Extremity Veins Bilateral (08/17/2023 [...] and management can be found on the [employer] site. Link [email or web address]/clinical-[email or web address]/[email or web address] Findings discussed with ??Tayler Greenwood, ?? ([id number]) on 08/17/2023 7:11 PM. Procedure Note Jj [...] thrombosis and management can be found on theAskentegra technologiesExpert site. [email or web address]/topic/clinical-answers/[email or web address]/cpm -[email or web address] 1725 Findings discussed with Tayler Greenwood MD ([id number]) on 08/17/2023 7:11 PM. IMPRESSION: 1. 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 2. No acute left-sided DVT. Corin Ring M.D. IMG US PROCEDURES * APTT (Activated Partial Thromboplastin Time) (08/17/2023 4:56 PM CDT) Activated Partial Thrombopl Time, P 29 25 - 37 sec 08/17/2023 5:10 PM CDT [facility] Blood (Blood, Venous) 08/17/2023 4:56 PM CDT 08/17/2023 5:00 PM CDT Paula Hernandez M.D. LAB BLOOD ADD-ON [facility] [address] [place] [address], [facility] [address] [place] [address] * ECG 12 Lead (08/16/2023 9:43 PM CDT) Ventricular Rate ECG/Min 134 BPM MUSE OK Interval 136 ms MUSE QRSD Interval 76 ms MUSE QT Interval 298 ms MUSE QTC Interval 445 ms MUSE P [place] 29 degrees MUSE R [place] -6 degrees MUSE T Wave [place] 21 degrees MUSE 08/16/2023 9:43 PM CDT [...] CBC without Differential (08/16/2023 9:40 PM CDT) Pathologist [facility] Hemoglobin 8.8(L) 13.2 - 16.6 g/dL 08/16/2023 [...] CDT Geneva Azar M.D. LAB BLOOD ADD-ON [facility] [address] [place] [address], [facility] DTL [facility] [address] [place] [address] * (ABNORMAL) Basic Metabolic Panel (08/16/2023 9:40 [...] CDT Geneva Azar M.D. LAB BLOOD ADD-ON [facility] [address] [place] [address], [place] DTL [facility] [address] [place] [address] * Transfuse Red Blood Cells : (08/16/2023 [...] BLOOD ADD-ON Performing Organization Address [facility] Co de Phone Number [facility] [address] [place], [place] [phone] [place] [address] DTL [facility] 200 [place] [address] * (ABNORMAL) CBC without Differential (08/16/2023 3:10 AM CDT) Pathologist [facility] Hemoglobin 8.1(L) 13.2 - 16.6 g/dL 08/16/2023 [...] City/[facility]/ZIP Co de Phone Number [facility] 200 [place] [address], [facility] DTL [facility] [address] [place] [address] * (ABNORMAL) CBC with Differential, Blood (08/15/2023 [...] Carlos Alberto Henson M.D. LAB BLOOD ADD-ON [facility] [address] [place] [address], [place] DTL [facility] [address] [place] [address] [facility] [address] [place] [address] * DX Abdomen 1 View (08/15/2023 1:19 [...] 37.0 deg C 08/15/2023 12:04 PM CDT [facility] Blood 08/15/2023 11:5 6 AM CDT 08/15/2023 12:03 PM CDT Rae Gonzalez [employer], VEGETABLE HANDLER, DNAP LAB BLOO D NON ADD-ON [facility] [address] [place] [address], [facility] [address] [place] [address] * Lactate, B - Intra-op (08/15/2023 11:56 AM CDT) Pathologist [facility] Lactate, B 1.1 0.5 - 2.2 mmol/L 08/15/2023 12:06 PM CDT STMA Blood (Blood, Venous) 08/15/2023 11:56 AM CDT 08/15/2023 12:03 PM CDT Hayde Song M.D. LAB BLOOD NON ADD-O N [facility] [address] [place] [address], [facility] 200 [place] [address] * (ABNORMAL) Glucose, Whole Blood (08/15/2023 11:56 AM CDT) Glucose 144(H) 70 - 140 mg/dL 08/15/2023 12:06 PM CDT STMA Blood (Blood, Arterial Line) 08/15/2023 11:56 AM CDT 08/15/2023 12:03 PM CDT Hayde Song M.D. LAB BLOOD ADD-ON [facility] [address] [place] [address], [facility] 200 [place] [address] * Potassium, Blood (08/15/2023 11:56 AM CDT) Potassium, B 4.3 3.6 - 5.2 mmol/L 08/15/2023 12:07 PM CDT STMA Blood (Blood, Arterial Line) 08/15/2023 11:56 AM CDT 08/15/2023 12:03 PM CDT Hayde Song M.D. LAB BLOOD NON ADD-O N [facility] [address] [place] [address], [facility] [address] [place] [address] * Sodium, B (08/15/2023 11:56 AM CDT) Sodium, B 135 135 - 145 mmol/L 08/15/2023 12:06 PM CDT STMA Blood (Blood, Arterial Line) 08/15/2023 11:56 AM CDT 08/15/2023 12:03 PM CDT Hayde Song M.D. LAB BLOOD NON ADD-O N Performing Organization Address City/[facility]/ZIP Co de Phone Number [facility] [address] [place], [place] [phone] [place] [address] 200 [place] [address] * (ABNORMAL) Calcium, Ionized (08/15/2023 11:56 AM CDT) Calcium, Ionized, B 4.53(L) 4.65 - 5.30 mg/dL 08/15/2023 12:07 PM CDT STMA Blood (Blood, Arterial Line) 08/15/2023 11:56 AM CDT 08/15/2023 12:03 PM CDT Hayde Song M.D. LAB BLOOD NON ADD-O N Performing Organization Address City/[facility]/ZIP Co de Phone Number [facility] 200 [place] [address], [facility] 200 [place] [address] * (ABNORMAL) Blood Gas with Coox, Arterial [...] Song M.D. LAB BLOOD NON ADD-O N [facility] [address] STMA [facility] [address] [place] [address] * [place] Fluoro Less Than 1 Hour [...] CDT 08/15/2023 10:28 AM CDT Rae Gonzalez [employer], VEGETABLE HANDLER, DNAP LAB BLOO D NON ADD-ON [facility] [address] [place] [address], [facility] 200 [place] [address] * Lactate, B - Intra-op (08/15/2023 10:28 AM CDT) Lactate, B 1.1 0.5 - 2.2 mmol/L 08/15/2023 10:30 AM CDT STMA Blood (Blood, Venous) 08/15/2023 10:28 AM CDT 08/15/2023 10:28 AM CDT Hayde Song M.D. LAB BLOOD NON ADD-O N Performing Organization Address City/[facility]/ZIP Co de Phone Number [facility] [address] [place] [address], [facility] [address] [place] [address] * Glucose, Whole Blood (08/15/2023 10:28 AM CDT) Glucose 134 70 - 140 mg/dL 08/15/2023 10:30 AM CDT STMA Blood (Blood, Arterial Line) 08/15/2023 10:28 AM CDT 08/15/2023 10:28 AM CDT Hayde Song M.D. LAB BLOOD ADD-ON [facility] [address] [place], [place] [address] [address] [place] [address] * Potassium, Blood (08/15/2023 10:28 AM CDT) Potassium, B 4.1 3.6 - 5.2 mmol/L 08/15/2023 10:31 AM CDT STMA Blood (Blood, Arterial Line) 08/15/2023 10:28 AM CDT 08/15/2023 10:28 AM CDT Narrative Authorizing Provider Result Abdifatah Song M.D. LAB BLOOD NON ADD-O N [facility] [address] [place], [place] [phone] [place] [address] 200 [place] [address] * Sodium, B (08/15/2023 10:28 AM CDT) Sodium, B 135 135 - 145 mmol/L 08/15/2023 10:30 AM CDT STMA Blood (Blood, Arterial Line) 08/15/2023 10:28 AM CDT 08/15/2023 10:28 AM CDT Hayde Song M.D. LAB BLOOD NON ADD-O N Performing Organization Address City/[facility]/ZIP Co de Phone Number [facility] [address] [place], [place] [phone] [place] [address] 200 [place] [address] * (ABNORMAL) Calcium, Ionized (08/15/2023 10:28 AM CDT) Calcium, Ionized, B 4.25(L) 4.65 - 5.30 mg/dL 08/15/2023 10:31 AM CDT STMA Blood (Blood, Arterial Line) 08/15/2023 10:28 AM CDT 08/15/2023 10:28 AM CDT Narrative Authorizing Provider Result Abdifatah Song M.D. LAB BLOOD NON ADD-O N [facility] [address] [place], [place] [phone] [place] [address] [place] [address] * (ABNORMAL) Blood Gas with Coox, Arterial [...] Song M.D. LAB BLOOD NON ADD-O N [facility] [address] [place] [address], [facility] [address] [place] [address] * Bacteria / Yomaira Culture, Blood #2 (08/15/2023 3:33 AM CDT) Bacteria/Leyla da Culture, Blood No growth after 5 days of incubation. 08/20/2023 6:02 AM CDT DTL Blood (Blood, Peripheral Draw) 08/15/2023 3:33 AM CDT 08/15/2023 5:58 AM CDT Comment:Specimen Source Site : Blood Narrative [facility] - 08/20/2023 6:02 AM CDT Received Bactec aerobic and Bactec anaerobic bottles Carlos Alberto Henson M.D. LAB MICROBIOLOGY - G ENERAL ORDERABLES [facility] [address] [place] [address], [facility] DTL [facility] [address] [place] [address] * (ABNORMAL) Basic Metabolic Panel (08/15/2023 3:31 AM CDT) Pathologist [facility] Potassium, S 4.0 3.6 - 5.2 [...] City/[facility]/ZIP Co de Phone Number [facility] [address] [place] [address] * Bacteria / Yomaira Culture, Blood #1 (08/15/2023 3:31 AM CDT) [facility] Bacteria/Leyla da Culture, Blood No growth after 5 days of incubation. 08/20/2023 6:02 AM CDT DTL Blood (Blood, Peripheral Draw) 08/15/2023 3:31 AM CDT 08/15/2023 5:59 AM CDT Comment:Specimen Source Site : Blood Carlos Alberto Henson M.D. LAB MICROBIOLOGY - G ENERAL ORDERABLES Performing Organization Address [facility] Co de Phone Number [facility] [address] [place] [address] * (ABNORMAL) CBC with Differential, Blood (08/15/2023 3:30 AM CDT) [facility] Hemoglobin 9.5(L) 13.2 - 16.6 g/dL 08/15/2023 [...] Carlos Alberto Henson M.D. LAB BLOOD ADD-ON [facility] [address] [place] [address], [facility] DTL [facility] [address] [place] [address] [facility] [address] [place] [address] * (ABNORMAL) CBC with Differential, Blood (08/14/2023 8:08 PM CDT) [facility] Hemoglobin 9.8(L) 13.2 - 16.6 g/dL 08/14/2023 [...] Carlos Alberto Henson M.D. LAB BLOOD ADD-ON [facility] [address] [place] [address], [facility] STMA [facility] [address] [place] [address] [facility] [address] [place] [address] * Transfuse Red Blood Cells : , [...] Carlos Alberto Henson M.D. LAB BLOOD ADD-ON [facility] [address] [place] [address], [facility] STMA [facility] [address] [place] [address] [facility] [address] [place] [address] * (ABNORMAL) Basic Metabolic Panel (08/14/2023 3:18 AM CDT) Pathologist [facility] Potassium, S 5.4(H) 3.6 - 5.2 [...] Carlos Alberto Henson M.D. LAB BLOOD ADD-ON [facility] [address] [place] [address], [facility] [address] [place] [address] * Type and Screen (with Reflex Antibody ID) (08/13/2023 7:35 PM CDT) Pathologist [facility] ABORh O Pos Not applicable 08/13/2023 7:58 PM CDT STRM Antibody Screen Negative Negative 08/13/2023 8:13 PM CDT STRM Type & Screen Expiration 08/16/2023 23:59 08/13/2023 7:58 PM CDT STRM Testing Location [place] DEFAULT 08/13/2023 7:39 PM CDT STRM Blood (Blood, Venous) 08/13/2023 7:35 PM CDT 08/13/2023 7:39 PM CDT Carlos Alberto Henson M.D. LAB BLOOD BANK TEST ORDERABLES Performing Organization Address City/[facility]/ZIP Co de Phone Number [facility] [address] [place] [address], [facility] [address] [place] [address] * (ABNORMAL) Bacteria / Yomaira Culture, Blood #1 (08/13/2023 7:35 PM CDT) [facility] Bacteria/Cand jessica Culture, Blood ESCHERICHIA COLI Growth after 11 Hours (A) 08/16/2023 11:17 AM CDT DT Comment: 3 of 3 Bottles, Susceptibilities performed on another specimen [id number] Blood (Blood, Peripheral Draw) 08/13/2023 7:35 PM CDT 08/13/2023 8:15 PM CDT Comment:Specimen Source Site : Blood Carlos Alberto Henson M.D. LAB MICROBIOLOGY - G ENERAL ORDERABLES [facility] [address] [place] [address], [facility] [address] [place] [address] * ECG 12 Lead (08/13/2023 7:02 PM CDT) Ventricular Rate ECG/Min 128 BPM MUSE OK Interval 138 ms MUSE QRSD Interval 64 ms MUSE QT Interval 304 ms MUSE QTC Interval 443 ms MUSE P [place] 45 degrees MUSE R [place] 34 degrees MUSE T Wave [place] 46 degrees MUSE 08/13/2023 7:02 PM CDT [...] CDT Comment:Specimen Source Site : Blood Narrative [facility] - 08/16/2023 11:17 AM CDT Received Bactec [...] Carlos Alberto Henson M.D. LAB MICROBIOLOGY - [facility] ORDERABLES [facility] [address] [place] [address], [facility] [address] [place] [address] * Magnesium (08/13/2023 5:27 PM CDT) [facility] Magnesium, S 1.9 1.7 - 2.3 mg/dL 08/13/2023 6:12 PM CDT DTL Blood (Blood, Venous) 08/13/2023 5:27 PM CDT 08/13/2023 5:58 PM CDT Carlos Alberto Henson M.D. LAB BLOOD ADD-ON [facility] [address] [place] [address], [facility] [address] [place] [address] * (ABNORMAL) Hepatic Function Panel (08/13/2023 5:27 [...] Carlos Alberto Henson M.D. LAB BLOOD ADD-ON [facility] [address] [place] [address], [facility] [address] [place] [address] * (ABNORMAL) Basic Metabolic Panel (08/13/2023 5:27 [...] Carlos Alberto Henson M.D. LAB BLOOD ADD-ON [facility] [address] [place] [address], [facility] [address] [place] [address] * Prothrombin Time (PT) (08/13/2023 5:27 PM [...] Carlos Alberto Henson M.D. LAB BLOOD ADD-ON [facility] [address] [place] [address], [facility] [address] [place] [address] * (ABNORMAL) CBC with Differential, Blood (08/13/2023 [...] Carlos Alberto Henson M.D. LAB BLOOD ADD-ON [facility] [address] [place] [address], [facility] STMA [facility] [address] [place] [address] [facility] [address] [place] [address] * (ABNORMAL) Dipstick, Urine (08/13/2023 5:07 PM [...] City/[facility]/ZIP Co de Phone Number [facility] [address] [place] [address], [facility] DTL [facility] [address] [place] [address] * Osmolality, Urine (08/13/2023 5:07 PM CDT) Osmolality, U 351 150 - 1150 mOsm/kg 08/13/2023 7:46 PM CDT DTL Urine 08/13/2023 5:07 PM CDT 08/13/2023 5:45 PM CDT Carlos Alberto Henson M.D. LAB URINE ORDERABLES Performing Organization Address [facility] Co de Phone Number [facility] [address] [place] [address], [facility] [address] [place] [address] * (ABNORMAL) Microscopic Manual (08/13/2023 5:07 PM [...] URINE ORDERABLES Performing Organization Address City/[facility] Co de Phone Number [facility] [address] [place] [address], [facility] [address] [place] [address] * pH, Random, Urine (08/13/2023 5:07 PM CDT) pH, Random, U 7.0 4.5 - 8.0 08/13/2023 7:46 PM CDT DTL Urine 08/13/2023 5:07 PM CDT 08/13/2023 5:45 PM CDT Carlos Alberto Henson M.D. LAB URINE ORDERABLES [facility] [address] [place] [address], [place] [facility] [address] [place] [address] * (ABNORMAL) Bacterial Culture, Aerobic + Susceptibility, [...] Carlos Alberto Henson M.D. LAB MICROBIOLOGY - [facility] ORDERABLES [address] [address], [facility] DTL [address] [address] * (ABNORMAL) Urinalysis, with Microscopic: Urine, Midstream [...] CDT DTL Predicted 24 [place] [address](H) <229 mg/24 h 08/13/2023 8:50 PM CDT DTL Predicted Range [id number] mg/24 h 08/13/2023 8:50 PM CDT DTL Comment Micro done on <2.5 mL 08/13/2023 7:55 PM CDT DTL Urine (Urine, Midstream) 08/13/2023 5:07 PM CDT 08/13/2023 5:44 PM CDT Carlos Alberto Henson M.D. LAB URINE ORDERABLES [facility] [address] [place] [address], [place] [facility] [address] [place] [address] * Interpretation of Outside CT Abdomen and [...] sclerotic lesion along theanterior aspect of S1 (2/). This is new since 2019. Additional new sclerotic lesion seen along the left lateralsacrum (2/). Lung bases are clear. IMPRESSION: 1. Since [...] 8:22 PM CDT 2 g 200 mL/hr 08/20/2023 9:08 PM CDT 2 g 200 mL/hr New 08/19/2023 7:29 PM CDT 2 g 200 [...] use home supply. 08/17/23: Id'ed by [facility]. [facility] Rx# [id number], filled 07/22/23. HAZARDOUS - Handle with care. Swallow whole. Do NOT crush, chew or open capsule. Given 08/26/2023 9:12 AM CDT 120 mg Given 08/25/2023 9:08 AM CDT 120 mg Given 08/24/2023 9:12 AM CDT 120 mg fat emulsion [id number] & fish oil infusion 50 g (SMOFlipid) [...] Lactated Ringer's 1.5 mL/kg/hr ? 75 kg [place] weight (112.5 mL/hr, rounded to 113 mL/hr), intravenous, Continuous, Starting on Tue08/22/23 at 1030, Conditional Phase Pre-Gastrografin Administration. (Rate = 1.5 mL/kg/hr ideal body weight) Lactated Ringer's 0.75 mL/kg/hr ? 75 kg [place] weight (56.25 mL/hr, rounded to 56.3 mL/hr), [...] daily, First dose (after last modification) on Tu08/23/23 at 2100 Given 08/26/2023 9:15 AM CDT [...] Patient/family refused)0615 (Given - Provider: Brittni Howe RRitesh.)1242 (Given - Provider: Tayler Forrest R.N.)1831 (Given - Provider: Mary Rosado RJonahNJonah) 0019 (Not Given - Provider: Fatuma See R.N. - Reason: Patient/family refused)0639 (Given - Provider: Fatuma See R.N.)1136 (Given - Provider: Tayler Forrest R.Mari.)1750 (Not Given - Provider: Paola Salazar RJonahNJonah - Reason: Patient/family refused)2349 (Not Given - Provider: Edith Simental R.N. - Reason: Patient/family refused) 0624 (Given - Provider: Edith Simental R.N.)1244 (Not Given - Provider: Lupe Valdez RJonahNJonah - Reason: Patient/family refused) bisacodyL suppository 10 [...] R.N.) 0640 (Given - Provider: Fatuma See RNarendra)1750 (Given - Provider: Paola Salazar RNarendra) 0627 (Given - Provider: Edith Simental RJonahNJonah)1600 (Due) clopidogreL tablet 75 mg (PLAVIX) 75 [...] - Reason: Patient/family refused)213 (Given - Provider: Paola Salazar RNarendra) 0915 (Given - Provider: Lupe Valdez R.N.) enzalutamide capsule 120 mg (XTANDI) PATIENT'S OWN MED 120 mg, oral, Daily, First dose (after last modification) on Tue08/17/23 at 1230, Patient may use home supply. 08/17/23: Id'ed by [facility]I. [facility] Rx# [id number], filled 07/22/23. HAZARDOUS - Handle with care. Swallow whole. Do NOT crush, chew or open capsule. 09 (Given - Provider: Tayler Forrest R.N. - Comment: Pat Murray, -2nd RN) 09 (Given - Provider: Tayler Forrest R.N. - Comment: Pt 's own med from home) 911 (Given - Provider: Lupe Valdez R.N.) fat emulsion tgi-pdc-xzazy & fish oil infusion 50 g (SMOFlipid) [...] R.N.)215 (Given - Provider: Fatuma See R.N.) 0907 (Given - Provider: Tayler Forrest R.N.)213 (Given - Provider: Paola Salazar R.N.) 0915 [...] since Tue08/20/2023 at 2000 until manually unheld 0900 (Not [...] replacement: Phosphorus 0747 (New Bag - Provider: Birttni Howe R.N.) rivaroxaban tablet 10 mg (XARELTO) [...] Tayler Forrest R.N.) 0915 (Given - Provider: Mayur JamesN.) trospium tablet 20 mg (SANCTURA) 20 mg, oral, 2 times daily before breakfast and dinner, First dose (after last modification) on Tue08/23/23 at 1615, Administer with water at least 1 hr prior to meals., Restriction Criteria (Pharmacy will review and approve if criteria met): Use in patients 65 years of age or older 0615 (Given - Provider: Brittni Howe RJonahN.)1520 (Given - Provider: Mary Rosado R.N.) 0638 [...] (New Bag - Provider: Paola Salazar R.N.) 113 (Stopped - Provider: Lupe Valdez R.N.) heparin (porcine) 100 Units/mL in NaCl 0.45% 250 mL infusion (CANCELED) 0-30 Units/kg/hr ? 91.2 kg Dosing weight (0-27.36 mL/hr), intravenous, Continuous, Starting on 08/22/23 at 0945, 25,000 Units in 250 mL, [...] Lactated Ringer's 1.5 mL/kg/hr ? 75 kg [place] weight (112.5 mL/hr, rounded to 113 mL/hr), intravenous, Continuous, Starting on Tue08/22/23 at 1030, Conditional Phase Pre-Gastrografin Administration. (Rate = 1.5 mL/kg/hr ideal body weight) Lactated Ringer's 0.75 mL/kg/hr ? 75 kg [place] weight (56.25 mL/hr, rounded to 56.3 mL/hr), [...] 1547 documented in this encounter Care Teams Ramp Lead Relationship Specialty Start Date End Date Elsewhere, Pcp PCP - General Internal Medicine 08/13/23 documented as of this encounter
--- OUTSIDE RECORDS SUMMARY | 2023-09-16 09:00 | XMS_ITS | Encounter Summary ---
Author Organization [facility] Address [address] [place] [address] Care Team Providers Care Sales Support Representative Name Role Phone Elsewhere, Pcp Primary Care Provider Unavailabl e Encounter Details Date Type Department Care Team (Late st Contact Info) Description 08/23/2023 12:45 AM CDT Ancillary Procedure Department of Nursing Social History Tobacco Use Types Packs/Day Years Used Date Smoking Tobacco: Never Smokeless Tobacco: Never [facility] Utilities Answer Date Recorded In the past [address] [facility] electric, gas, oil, or water company [...] your living situation today? I have a [facility] place to live 08/13/2023 Sex and Gender Information Value Date Recorded Sex Assigned at Not on file Gender Identity Not on file Sexual Orientation Not on file documented as of this encounter Plan of Treatment Upcoming Encounters Date Type Department Care Team (Late st Contact Info) Description 10/14/2023 1:00 PM CDT Procedure visit Department of Urology in [place], [place] [address] [place] [address] Paula Hernandez M.D. [address] [place] [address] documented as of this encounter Procedures Procedure [...] on filedocumented in this encounter Care Teams Sales Support Representative Relationship Specialty Start Date End Date Elsewhere, Pcp PCP - General Internal Medicine 08/13/23 documented as of this encounter
--- OUTSIDE RECORDS SUMMARY | 2023-09-16 09:00 | XMS_ITS | Encounter Summary ---
Author Organization [facility] Address [address] [place] [address] Care Team Providers Care Home Mission Worker Name Role Phone Elsewhere, Pcp Primary Care Provider Unavailabl e Encounter Details Date Type Department Care Team (Late st Contact Info) Description 08/15/2023 8:30 AM CDT Anesthesia Event RST ROMB MAIN OR [address] [place] [address] Hayde Song M.D. [address] [place] [address] Anesthesia Record Procedure Summary Procedure Name Responsible [...] Incision; Pannus; Mid 08/15/23 0900 by Janina Coronado, R.N. Peripheral IV Placement Date: 08/02; Existing LDA Placed by: Other hospital; Orientation: Left; Location: Antecubital; Removal Date: 08/15/23; Removal Time: 0908/13/23 0000 by Jose Haro, M.S.N., R.N. 08/15/23 0909 by Rae Gonzalez APRN, DESIGN ENGINEERING INTERN, DNAP Peripheral IV Placement Date: 08/02; Existing LDA Placed by: Other hospital; Orientation: Anterior, Lower, Right; Location: Forearm; Removal Date: 08/22/23; Removal Time: 746; Removal Reason: Leaking 08/13/23 0000 by Jose Haro, M.S.N., R.N. 08/22/23 0747 by Jenny Ferguson Bladder Irrigation 08/13/23; 1706; [place]; Continuous; Three-way; 24 Fr; 30 [...] Tobacco: Never Smokeless Tobacco: Never [facility] Utilities Answer Date Recorded In the past 12 months has [facility] [employer], gas, oil, or water [employer] threatened to shut off services in your [...] Procedure Summary Date: 08/15/23 Room / Location: [address] [facility] in [place], [place] Anesthesia Start: 829 Anesthesia Stop: 1317 [...] location: oral VL device: glide scope [place] scope blade size: 4 Tube size: 7.5 [...] & H&P Assessment Procedure Summary Date/Time: 08/15/23 8135 Procedure: Palliative EXPLORATORY LAPAROTOMY, CYSTOTOMY CLOSURE, RIGHT URETERAL STENT EXCHANGE, PROCEED INDICATED, possible multiple trips 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 Location: [place] [address] / [facility] in [place], [place] Providers: Boubacar Brock M.D. Pertinent components [...] patient / legal guardian, or through an refrigerator tester; patient evaluated and approved for anesthesia / [...] CDT Procedure visit Department of Urology in [place], [place] [address] [place] [address] Paula Hernandez M.D. [address] [place] [address] documented as of this encounter Procedures Procedure [...] location: oral VL device: glide scope [place] scope blade size: 4 Tube size: 7.5 [...] mg documented in this encounter Care Teams Home Mission Worker Relationship Specialty Start Date End Date Elsewhere, Pcp PCP - General Internal Medicine 08/13/23 documented as of this encounter
--- OUTSIDE RECORDS SUMMARY | 2023-09-16 09:01 | XMS_ITS | Encounter Summary ---
Author Organization [facility] Address [address] [place] [address] Care Team Providers Care Beet Flumer Name Role Phone Elsewhere, Pcp Primary Care Provider Unavailabl e Encounter Details Date Type Department Care Team (Late st Contact Info) Description 08/13/2023 4:35 PM CDT Ancillary Procedure Department of Radiology in [place], [place] [address] [place] [address] Carlos Alberto Henson M.D. [address] [place] [address] Social History Tobacco Use Types Packs/Day Years Used Date Smoking Tobacco: Never Smokeless Tobacco: Never [facility] Utilities Answer Date Recorded In the past 12 months has [facility] electric, gas, oil, or water company threatened [...] living situation today? I have a [facility] place to live 08/13/2023 Sex and Gender Information Value Date Recorded Sex Assigned at Not on file Gender Identity Not on file Sexual Orientation Not on file documented as of this encounter Plan of Treatment Upcoming Encounters Date Type Department Care Team (Late st Contact Info) Description 10/14/2023 1:00 PM CDT Procedure visit Department of Urology in [place], [place] [address] [place] [address] Paula Hernandez M.D. [address] [place] [address] documented as of this encounter Procedures Procedure [...] pelvocaliectasis that is also improved since 2020. Theureter is decompressed. Bilateral perinephric stranding is [...] on filedocumented in this encounter Care Teams Beet Flumer Relationship Specialty Start Date End Date Elsewhere, Pcp PCP - General Internal Medicine 08/13/23 documented as of this encounter
--- OUTSIDE RECORDS SUMMARY | 2023-09-16 09:01 | XMS_ITS | Clinical Summary ---
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 Bladder mass 02/29/2020 04/30/2020 Hematuria 02/29/2020 03/05/2020 Acute deep vein thrombosis (DVT) 02/29/2020 11/20/2020 S/P coronary angioplasty 11/03/2016 Chest pain 09/15/2016 03/05/2020 Elevated prostate specific antigen (PSA) 10/06/2010 03/05/2020 Hip arthritis 10/06/2010 03/05/2020 Colon polyp 07/15/2010 PATRICE (acute kidney injury) Obstructive uropathy 020 Encounters Date Type Department Care Team Description 09/15/2023 Transcribe Orders [facility] [address] [place] [address] Provider, Non-[facility] 09/13/2023 Telephone [facility] [address] [place] [address] Cesar Mccollum MD Procedure (health care social worker) 08/31/2023 Transcribe Orders [facility] [address] [place] [address] Senthil Alvarez MD 08/30/2023 Orders Only [facility] Scanner 1 scan: (1-Ord) [place], -ABDOMEN RENAL, 08/30/2023 08/23/2023 Transcribe Orders [facility] [address] [place] [address] Provider, Non-[facility] 08/13/2023 Orders Only [facility] Scanner 1 scan: (1-Ord) [facility], ABDOMEN/PELVIS W/O, 08/13/2023 08/04/2023 11:30 AM CDT Office Visit [facility] [address] [place] [address] Sandip Garcia, AuD Hearing Aid 08/04/2023 Travel 08/02/2023 2:30 PM CDT Orders Only [facility] [address] [place] [address] Lab, [facility] 08/02/2023 Travel 08/02/2023 Orders Only [facility] [address] [place] [address] Cesar Mccollum MD <No scans attached> 07/21/2023 8:55 AM CDT Office Visit [facility] [address] [place] [address] Cesar Mccollum MD Medicare ANNUAL (subsequent) Visit (83 year old); Post Procedure (Uteretal stent exchange) 07/21/2023 Travel 07/18/2023 10:00 AM CDT Anesthesia Event [address] [place] [address] Leonardo Frankel MD Purdy, Adam John, VISUAL MERCHANDISING DIRECTOR 07/18/2023 9:45 AM CDT - 07/18/2023 10:54 AM CDT Surgery [address] [place] [address] Nicola Mcgarry MD CYSTOSCOPY EXCHANGE, RIGHT URETERAL STENT 07/18/2023 7:41 AM CDT - 07/18/2023 3:26 PM CDT Hospital Encounter [address] [place] [address] Nicola Mcgarry MD Other hydronephrosis (Primary Dx) Discharge Disposition: Home Self Care 07/18/2023 Travel 07/15/2023 8:20 AM CDT Preop Visit [facility] [address] [place] [address] Shannan Bain, Pre-Op Exam (/[facility]ADDER SURGERY [facility] DR. MCGARRY 07/18/23) 07/15/2023 Travel 07/11/2023 Orders Only [facility] Scanner 1 scan: (1-Ord) [facility], CLINICAL LABORATORY REPORT, 07/11/2023 07/06/2023 Telephone [facility] [address] [place] [address] Cesar Mccollum MD Follow Up 07/05/2023 4:00 PM CDT Orders Only [facility] [address] [place] [address] Lab, [facility] 07/05/2023 Travel 07/05/2023 Orders Only [facility] [address] [place] [address] Cesar Mccollum MD <No scans attached> 07/01/2023 8:30 AM CDT Ancillary Procedure [facility] [address] [facility] [place] [address] 07/01/2023 Travel 06/25/2023 Orders Only [facility] Scanner 1 scan: (1-Ord) [facility] MULT[facility]LE LAB[facility], 06/25/2023 06/23/2023 Transcribe Orders [facility] [address] [place] [address] Nicola Mcgarry MD from Last 3 Months Immunizations Name Administration Dates Next Due COVID-19 Vaccine Spikevax (M oderna 50mcg/0.5mL) 12YO+ 0740-0724 Formula PF 07/21/2023,03/08/2023 COVID-19 vaccine ([employer] 30mcg/0.3mL) 12YO+ BIVALENT PF, MDV 09/13/2022,01/28/2022 COVID-19 vaccine ([employer] NTech 30mcg/0.3mL) 12YO+ DAYRON-SUCROSE PF, MDV 08/26/2021 COVID-19 vaccine ([employer] 30mcg/0.3mL) PF, MDV 01/13/2021,06/17/2020,2020 Influenza, Inactivated [...] Description 10/04/2023 1:00 PM CDT Office Visit [facility] [address] [place] [address] Regan Miller MD [address] [place] [address] Health Maintenance Due Date Last [...] Completed 4 Medical Devices Implanted Type Area Rate Quoting Operator Device Identifier Shelf Expiration Date Model / Serial / Lot Stent Uret [id number] Contour - [id number] Implanted:Qty: 1 on 07/18/2023 by Nicola Mcgarry MD at [facility] Right: Ureter [facility] 02/27/2026 [id number] / / [id number] Procedures Procedure Name Priority Date/Time Associated Diagnosis Comments SCAN-ULTRASOUND REPORT 08/30/2023 12:00 AM CDT SCAN-CT INTERPRETATION 08/13/2023 12:00 AM CDT HEMOGLOBIN [...] CDT from Last 3 Months Results * SCAN-ULTRASOUND REPORT (08/30/2023 12:00 AM CDT) Anatomical Region Laterality Modality Other Scanner OTHER * SCAN-CT INTERPRETATION (08/13/2023 12:00 AM CDT) Anatomical Region Laterality Modality Other Scanner OTHER * (ABNORMAL) HEMOGLOBIN (08/02/2023 2:26 PM CDT) Only the most recent of3 resultswithin the time period is included. HEMOGLOBIN 10.1(L) 13.5 - 17.5 g/dL 08/02/2023 2:31 PM CDT [facility] MCV 89 80 - 100 fL 08/02/2023 2:31 PM CDT [facility] Blood BLOOD SPECIMEN / Unknown Venipuncture / Unknown 08/02/2023 2:26 PM CDT 08/02/2023 2:26 PM CDT Cesar Mccollum MD HEMATOLOGY [facility] [address] [place] [address], * HEMOGLOBIN A1C SCREENING (07/21/2023 9:58 AM CDT) Pathologist [facility] HEMOGLOBIN A1C SCREENING 5.4 <=6.4 % 07/21/2023 5:56 PM CDT [facility] Blood BLOOD SPECIMEN / Unknown Venipuncture / Unknown 07/21/2023 9:58 AM CDT 07/21/2023 10:00 AM CDT Narrative [facility] - 07/21/2023 5:56 PM CDT ? (<5.7%) ?Normal ? (5.7% to 6.4%) ? Indicates prediabetes ? (>=6.5%) ? Confirms diabetes Falsely low levels may be seen with: Recent Transfusion, Recent Significant Blood Loss, Hemolytic Diseases, or Falsely elevated levels may be seen with: Untreated Anemias, Splenectomy Cesar Mccollum MD CHEMISTRY [facility] [address] [place] [address], [place] * XR RETROGRADE PYELOGRAM W/WO KUB (07/18/2023 11:04 AM CDT) Anatomical Region Laterality Modality KIDNEYS, Abdomen Digital Radiogr aphy Narrative 07/18/2023 10:10 AM CDT 12 seconds fluoroscopy time was provided. ??See operative/procedure report for further information. Nicola Mcgaryr MD GENERAL IMAGING * [facility] MASK PR5 [...] - 145 mmol/L 07/15/2023 5:14 PM CDT [facility] POTASSIUM 4.7 3.5 - 5.1 mmol/L 07/15/2023 5:14 PM CDT [facility] CHLORIDE 106 98 - 107 mmol/L 07/15/2023 5:14 PM CDT [facility] CO2,TOTAL 24 22 - 29 mmol/L 07/15/2023 5:14 PM CDT [facility] ANION GAP 11 5 - 18 07/15/2023 5:14 PM CDT [facility] GLUCOSE 91 70 - 99 mg/dL 07/15/2023 5:14 PM CDT [facility] CALCIUM 9.3 8.8 - 10.2 mg/dL 07/15/2023 5:14 PM CDT [facility] BUN 22 8 - 23 mg/dL 07/15/2023 5:14 PM CDT [facility] CREATININE 1.32(H) 0.70 - 1.20 mg/dL 07/15/2023 5:14 PM CDT [facility] BUN/CREAT RATIO 17 10 - 20 5:14 PM CDT [facility] eGFR 53(L) >90 mL/min/1.7 3m2 07/15/2023 5:14 PM CDT [facility] Comment:As of 2021, eG FR [...] 9:40 AM CDT Shannan Bain DO CHEMISTRY [facility] [address] [place] [address], * SCAN-LABORATORY REPORT (07/11/2023 12:00 AM CDT) [...] Code Status Discussion: Reviewed Preferences Care Teams Molder Bench Relationship Specialty Start Date End Date Cesar Mccollum MD [address] [place] [address] PCP - General Family Practice 03/04/20 Nicola Mcgarry MD [address] [place] [phone] Surgery - Urology 03/13/20 Mireya Tan MD [address] [place] [phone] Hematology - Pathology 03/13/20
--- OUTSIDE RECORDS SUMMARY | 2023-09-16 09:01 | XMS_ITS | Encounter Summary ---
Author Organization [facility] Address [address] [place] [address] Care Team Providers Care Gravity Prospecting Operator Name Role Phone Elsewhere, Pcp Primary Care Provider Unavailabl e Encounter Details Date Type Department Care Team (Late st Contact Info) Description 08/15/2023 7:55 AM CDT - 08/15/2023 11:23 AM CDT Surgery RST ROMB MAIN OR [address] [place] [address] Boubacar Brock M.D. [address] [place] [address] Palliative EXPLORATORY LAPAROTOMY, CYSTOTOMY CLOSURE, RIGHT URETERAL STENT EXCHANGE Social History Tobacco Use Types Packs/Day Years Used Date Smoking Tobacco: Never Smokeless Tobacco: Never [facility] Utilities Answer Date Recorded In the past 12 months has [facility] [employer], gas, oil, or water Little1 threatened to shut off services in your [...] your living situation today? I have a [facility] place to live 08/13/2023 [...] AM CDT DISCHARGE SUMMARY BRIEF OVERVIEW Hospital: [facility] Discharge Provider: Boubacar Brock M.D. Primary Team: [facility] Urology Surgery - Chief Helga Rojas Primary [...] M.D.Wen, Lexiaochuan, M.D.Premo, Hayley, M.D.Botkin, Hannah, M.D. [facility] ROMB OR DISCHARGE DISPOSITION Home or Self Care [1] ACTIVE ISSUES REQUIRING FOLLOW UP OUTPATIENT FOLLOW UP Scheduled Appointments 08/26/2023 1:00 PM KESHIA VERAS [facility] Radiology For appointment details refer [...] he felt completely obstructed and presented to [facility] Attempted Tabares insertion but bladder irrigation was unsuccessful on multiple attempts. Hung 1U pRBC's. Given some volume and transferred to [facility] ICU ICU Course Urology consulted and [...] CONSULT TO NUTRITION SUPPORT IP CONSULT TO ORE DIGGER WOUND CARE CONDITION AT DISCHARGE stable Discharge [...] he felt completely obstructed and presented to [facility]. [facility] Attempted Tabares insertion but bladder irrigation was unsuccessful on multiple attempts. Hung 1U pRBC's. Given some volume and transferred to [facility] ICU ICU Course Urology consulted and [...] PM CDT You were discharged from the [facility] Urology Surgery - Chief A - Blue Service. Please identify this service name if you call with questions after hospitalization. * Attachments The following attachments cannot be sent through Care Everywhere. * Bacitracin (On the skin) (Tajik) * Cefdinir (By mouth) (Tajik) * Trospium (By mouth) (Tajik) documented in this encounter Medications at Time [...] Progress Notes * Emeterio Buchanan P.T., D.P.T., [facility] - 08/26/2023 4:27 PM CDT 08/26/23 1627 Reason Therapy Missed Reason Therapy Missed Receiving other care Attempted to see patient twice today. On 1st attempt patient was receiving blood transfusion and RNwas working on completing cares with him. On 2nd attempt patient was with another provider. Electronically signed by Emeterio Buchanan P.T., D.P.T., [facility] at 08/26/2023 4:28 PM CDT * Chary Diamond M.A., O.T., [facility] - 08/26/2023 10:21 AM CDT Occupational Therapy Acute Hospital Inpatient Treatment SUBJECTIVE Patient's Name: Kalen Vega Referring/Attending Provider: Boubacar Brock M.D. Reason for Referral: Occupational Therapy Evaluation and Treatment History of Present Illness: Kalen Vega is a 83 y.o. male who was admitted to [facility] in [place] on 08/13/2023 for Hematuria [R31.9]. Precautions Other Precautions: Abdominal, fall precautions, monitor tachycardia and hypertension Pain Assessment: Pain not reported during session. Subjective Comments: Agreeable to therapy session. Team Communication: The patient's status was discussed and coordination of care occurred with RN, Family/Caregiver, nurse tech Family/Caregiver Present: son and [id number] OBJECTIVE Vital Signs: Vitals not formally assessed during session. No concerns during chart review and the patient had nosigns or symptoms consistent with vital changes during therapy session. Outcome Measures: [facility] Inpatient Short Form: Putting on and taking [...] at or below 17 Clinicians answer the [facility] Inpatient Short Form based on observed patient [...] through pant leg first. - Adaptive Equipment: Chemist Instrumentation TOILETING - Assist Level: Maximal Assist - [...] (Edge of bed) - Assist Level: Modified [place] - Equipment: bed rail - Therapist Delivery: assessed, instructed, assisted - Adaptive Equipment: leg asbestos abatement worker trialed ; however, patient able to move [...] extremity (stiff knee) first. Recommended adaptive equipment: Chemist Instrumentation. Toileting - Patient instructed on accurate positioning [...] maximal exertion Handouts provided: Bathroom Safety Equipment [id number], Techniques to Help You Save Energy [id number] Patient was left in bedside chair with [...] Usama 6C -room 121 ASSESSMENT / PLAN SUPERVISOR TREATING AND PUMPINGsearch engine marketing manager met with patient and son Kar to inform them of home health care acceptance for PT/OT. Patient's son Kar and [id number] will provide transportation at the time of discharge. PLAN Patient to discharge home with home health care. Home Medical Care - Admitted Since 08/13/2023 Service Provider Selected Services Address Phone Fax Patient Preferred [facility] [address] [facility] [phone] -- Health Safety Instructor: Ghazal NURSING: - Complete documentation in the Discharge Navigator including Nursing Report Info and Facility/NextLevel of Care Info - Call report and arrange for the patient's first visit - Send After Visit Summary and required packet of dismissal information with patient, including advance directive. PRIMARY SERVICE: - Please provide a non-[place] home health order for: physical therapy and [...] be provided by family--patient's son Kar and [id number]. 3. deli worker recommended reaching out to family, friends, and neighbors for assistance. 4. deli worker provided information regarding the dismissal process. Damaris [...] Reviewed with patient #1 Hematuria Please page [facility] ([phone]) or [facility] ([phone]) Nutrition Support Service pager with questions. * Emeterio Buchanan PMarlon., D.P.T., [facility] - 08/25/2023 9:35 AM CDT Physical Therapy Inpatient Treatment SUBJECTIVE Patient's Name: Kalen Craig Vega Referring/Attending Provider: Boubacar Brock M.D. Reason for Referral: Physical Therapy Evaluate and Treat History of Present Illness: Kalen Vega is a 83 y.o. male who was admitted to [facility] in [place] on 08/13/2023 for Hematuria [R31.9] Precautions Other [...] throughout session; within normal ranges. Outcome Measures: [facility] Inpatient Short Form: -[facility] Basic Mobility (V.2) How much help [...] 3-5 steps with a railing?: A Little -[facility] Basic Mobility (V.2) Raw Score: 18 -[facility] Basic Mobility (V.2) Standardized Score: 41.05 Interpretation: Based on scoring guidelines using the raw score value: Those going to home had an average score at or above 18 Those going to facility had an average score at or below 17 Clinicians answer the -[facility] Inpatient Short Form based on observed patient activity and/or clinical judgement (ie. patient can be scored without physically performing each activity) Therapeutic Interventions: SIT TO STAND x3: Assistance Level: Supervision static safe house fit with adult there which they usually [place]'s with a difference educated fully know who [...] - 08/25/2023 9:18 AM CDT Occupational Therapy Acute Hospital Inpatient Treatment SUBJECTIVE Patient's Name: Kalen Vega Referring/Attending Provider: Boubacar Brock M.D. Reason for Referral: Occupational Therapy Evaluation and Treatment History of Present Illness: Kalen Vega is a 83 y.o. male who was admitted to [facility] in [place] on 08/13/2023 for Hematuria [R31.9]. Precautions Other Precautions: Abdominal, fall precautions, monitor tachycardia and hypertension Pain Assessment: Pain not reported during session. Subjective Comments: Agreeable to therapy session. Team Communication: The patient's status was discussed and coordination of care occurred with RN, PT OBJECTIVE Vital Signs: Vitals monitored throughout session; within normal ranges. Outcome Measures: [facility] Inpatient Short Form: Putting on and taking [...] at or below 17 Clinicians answer the [facility] Inpatient Short Form based on observed patient [...] including figure four technique. Recommended adaptive equipment: Chemist Instrumentation and Sock Aid. Toileting - Patient instructed [...] and modification tools as needed including leg asbestos abatement worker and/or bed adjustments. Bathroom DME: - Educated [...] in place draining clear yellow urine I/O ([id number]): Fifty-five cc serosanguineous from the drain 1 [...] locallyfor CBI. He was subsequently transferred to [facility] 08/12 for difficulty irrigating his catheter [...] have him follow up with his local diazo technician Comorbidities: --history of DVT status post [...] discussed with Dr. Venegas, chief urology resident consumer marketing analyst. Pager during business hours: [phone] Pager after hours: [phone] * Emeterio Buchanan P.Cooper, D.P.T., [facility] - 08/24/2023 10:46 AM CDT Physical Therapy Inpatient Treatment SUBJECTIVE Patient's Name: Kalen Vega Referring/Attending Provider: Boubacar Brock M.D. Reason for Referral: Physical Therapy Evaluate and Treat History of Present Illness: Kalen Vega is a 83 y.o. male who was admitted to [facility] in [place] on 08/13/2023 for Hematuria [R31.9] Precautions Other [...] %, and O2flow: Room air Outcome Measures: [facility] Inpatient Short Form: -[facility] Basic Mobility (V.2) How much help [...] 3-5 steps with a railing?: A Lot -[facility] Basic Mobility (V.2) Raw Score: 17 -[facility] Basic Mobility (V.2) Standardized Score: 39.67 Interpretation: Based on scoring guidelines using the raw score value: Those going to home had an average score at or above 18 Those going to facility had an average score at or below 17 Clinicians answer the [facility] Inpatient Short Form based on observed patient [...] baseline. PT Goal #2: Patient will perform bkc-uq-nhatn transfer with modified independence and least restrictive [...] Total Kcal/day: 1370 based on 84 % [place] Non-standard additives: K 80 mEq Phos 30 mmol MAX chloride Thiamine 100 mg daily (D4) ASSESSMENT / PLAN CPN renewed per NSS recommendations; K increased to 80 mEq, phos increased to 30 mmol/day. BMP, mag, phos with AM labs 08/24 ordered Ceftriaxone 2 gm Q 24hr started 08/14--> cefdinir 300 mg PO BID on 08/21 for UTI. Needs LOT determined. Pharm. ElDJonah, R.Ph. * Jennifer Millard M.D. - 08/24/2023 [...] magnesium, phosphorus tomorrow. #1 Hematuria Please page [facility] ([phone]) or [facility] ([phone]) Nutrition Support Service pager with questions. * Paula Hernandez M.D. - 08/24/2023 6:13 AM CDT UROLOGY CHIEF SERVICE PROGRESS NOTE SUBJECTIVE Kalen Srinivasan Gary was seen by the team during morning [...] catheter in place draining light smith I/O ([id number]): Forty-two cc serosanguineous from the drain 2.2 [...] locallyfor CBI. He was subsequently transferred to [facility] 08/12 for difficulty irrigating his catheter [...] have him follow up with his local diazo technician Comorbidities: --history of DVT status post [...] Meds: None Consults: POWER, KESHIA Hernandez M.D. 08/24/2023 Please page the Urology Chief Service with questions or concerns. Patient seen and discussed with Dr. Venegas, chief urology resident consumer marketing analyst. Pager during business hours: [phone] Pager after hours: [phone] * Deanne Mike, Kamala.G.S.Raman., M.S.W. - 08/23/2023 11:25 AM CDT SUBJECTIVE Social Work spoke with [facility]. They cannot provide correction at this time. They can provide OT/PT [...] anticipated discharge date of 08/24/23-08/26/23. Referrals sent: [facility] [place] [facility] (out of service area) [facility] ASSESSMENT / PLAN ASSESSMENT Patient has robust family support including a son living with him. PLAN Patient desires home health care through [facility]. Social Work will continue to follow to provide support. Social Work will continue to assist with discharge needs. Shorty Sun, M.S.W. 08/23/23 * Jazmine Benítez R.N., C.W.C.N. - 08/23/2023 11:[address] [facility] Wound RN consulted to assess [...] stent and hematuria who is transferred from [facility] with 3 days of hematuria and [...] None Unable to Measure Y *Wound Bed Closed;[place];Red Tissue Exposed None Odor None *Exudate Amount [...] 30 minutes > 30 minutes Ongoing management Nursing;Wound/aerobics instructor Partial head to toe skin assessment completed [...] AM CDT * Emeterio Buchanan P.T., D.P.T., [facility] - 08/23/2023 11:02 AM CDT Physical Therapy Inpatient Treatment SUBJECTIVE Patient's Name: Kalen Vega Referring/Attending Provider: Boubacar Brock M.D. Reason for Referral: Physical Therapy Evaluate and Treat History of Present Illness: Kalen Vega is a 83 y.o. male who was admitted to [facility] in [place] on 08/13/2023 for Hematuria [R31.9] Precautions Other [...] 3-5 steps with a railing?: A Lot -[facility] Basic Mobility (V.2) Raw Score: 17 -[facility] Basic Mobility (V.2) Standardized Score: 39.67 Interpretation: Based on scoring guidelines using the raw score value: Those going to home had an average score at or above 18 Those going to facility had an average score at or below 17 Clinicians answer the [facility] Inpatient Short Form based on observed patient [...] baseline. PT Goal #2: Patient will perform nkd-ev-bhtbl transfer with modified independence and least restrictive [...] D.P.T., GCS * Demarco Salazar Pharm.D., R.Ph., BCPS - 08/23/2023 10:19 AM [...] Prophylaxis: low-intensity heparin nomogram ID: E-coli bacteremia (roxyens). Ceftriaxone 2 gm Q 24hr started 08/14. [...] Total Kcal/day: 1370 based on 84 % [place] Non-standard additives: MAX chloride Thiamine 100 mg [...] magnesium, phosphorus tomorrow. #1 Hematuria Please page [facility] ([phone]) or [facility] ([phone]) Nutrition Support Service pager with questions. * Ivy Hernandez O.T. - 08/23/2023 8:30 AM CDT Occupational Therapy Acute Hospital Inpatient Treatment SUBJECTIVE Patient's Name: Kalen Vega Referring/Attending Provider: Boubacar Brock M.D. Reason for Referral: Occupational Therapy Evaluation and Treatment History of Present Illness: Kalen Vega is a 83 y.o. male who was admitted to [facility] in [place] on 08/13/2023 for Hematuria [R31.9]. Precautions Other Precautions: Abdominal, fall precautions, monitor tachycardia and hypertension Pain Assessment: Pain not reported during session. Subjective Comments: Agreeable to therapy session. Team Communication: The patient's status was discussed and coordination of care occurred with RN, PT OBJECTIVE Vital Signs: Vitals monitored throughout session; within normal ranges. Outcome Measures: [facility] Inpatient Short Form: Putting on and taking [...] at or below 17 Clinicians answer the [facility] Inpatient Short Form based on observed patient [...] catheter in place draining clear yellow I/O ([id number]): 73 cc serosanguineous from the drain Seven [...] locallyfor I. 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 [facility] Summary: Diet: NPO, TPN Activity: Ad kong DVT PPX: heparin drip GI PPX: Pantoprazole Bowel Regimen:N/A IVF: D5W with KCL 20 @100 mL/hr Abx/Microbiology: Ceftriaxone Pain Control: Tylenol, oxycodone 08/18. Scheduled trospium Home Meds Resumed: Metoprolol, tamsulosin, rosuvastatin Held Home Meds: None Consults: TPN, KESHIA Hernandez M.D. 08/23/2023 Please page the Urology Chief Service with questions or concerns. Patient seen and discussed with Dr. Venegas, chief urology resident consumer marketing analyst. Pager during business hours: [phone] Pager after hours: [phone] * Chary Diamond M.A., O.TJonah, OMAYRA - 08/22/2023 4:19 PM CDT 08/22/23 1619 Reason Therapy Missed Reason Therapy Missed Receiving other care Patient had IR appointment this morning for placement of Power PICC. OT unavailable to return in the afternoon. Will attempt to see patient at a later date as appropriate and able. Chary Diamond M.A., Tara.T., OMAYRA * Deanne Mike L.G.S.W., M.S.W. - 08/22/2023 4:06 PM CDT SUBJECTIVE Social Work met with patient and his son in his hospital room. Patient indicates a desire for home health care for PICC care, PT, and OT. [facility] Social Work sent referral. OBJECTIVE Patient is anticipated to remain at [facility] for 3-5 days. Referrals sent: [facility] ASSESSMENT / PLAN ASSESSMENT Patient has robust family support including a son living with him. PLAN Patient desires home health care through [facility]. Social Work will continue to follow [...] 83 y.o. male who was admitted to [facility] in [place] on 08/13/2023 for Hematuria [R31.9] Precautions Other [...] 3-5 steps with a railing?: A Lot AM-PAC Basic Mobility (V.2) Raw Score: 17 AM-PAC Basic Mobility (V.2) Standardized Score: 39.67 Interpretation: Based on scoring guidelines using the raw score value: Those going to home had an average score at or above 18 Those going to facility had an average score at or below 17 Clinicians answer the -[facility] Inpatient Short Form based on observed [...] baseline. 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 He was subsequently transferred to [facility] 08/12 for difficulty irrigating his catheter [...] have him follow up with his local diazo technician Comorbidities: --history of DVT status post [...] Meds: None Consults: TPN, KESHIA Hernandez M.D. 08/22/2023 Please page the Urology Chief Service with questions or concerns. Patient seen and discussed with Dr. Venegas, chief urology resident consumer marketing analyst. Pager during business hours: [phone] Pager after hours: [phone] * Qamar Jim, Pharm.D., R.Ph. - 08/21/2023 [...] place draining clear smith colored urine I/O ([id number]): 1800 cc urine output 75 cc serosanguineous [...] locallyfor I. He was subsequently transferred to [facility] 08/12 for difficulty irrigating his catheter [...] have him follow up with his local diazo technician Comorbidities: --history of DVT status post [...] discussed with Dr. Venegas, chief urology resident consumer marketing analyst. Pager during business hours: [phone] Pager after hours: [phone] * Lizette Harvey M.D. - 08/20/2023 8:08 [...] draining clear thin merlot colored urine I/O ([id number]): 240 cc p.o. intake 760 cc urine [...] locallyfor CBI. He was subsequently transferred to [facility] 08/12 for difficulty irrigating his catheter [...] 2.5 mg BID eliquis [facility] --transition from eliquis [...] have him follow up with his local diazo technician Comorbidities: --history of DVT status post [...] questions or concerns. Pager during business hours: [phone] Pager after hours: [phone] * Qamar Jim, PharmJonahD., R.Ph. - 08/20/2023 7:46 AM CDT [...] aPTT guidance document in [employer]May[employer]. Qamar Jim PharmPerla., R.Ph. * Lisa Seaman, O.T., [facility] - 08/19/2023 2:26 PM CDT Occupational Therapy [facility] Inpatient Treatment SUBJECTIVE Patient's Name: Kalen Vega Referring/Attending Provider: Boubacar Brock M.D. Reason for Referral: Occupational Therapy Evaluation and Treatment History of Present Illness: Kalen Vega is a 83 y.o. male who was admitted to [facility] in [place] on 08/13/2023 for Hematuria [R31.9]. Precautions Other [...] at or below 17 Clinicians answer the [facility] Inpatient Short Form based on observed patient [...] about patient's nutritional care please contact pager [phone] on weekdays or [phone] on weekends/holidays. NUTRITION ASSESSMENT: Mr. Vega is [...] care everywhere) ESTIMATED NEEDS: Total Calorie Needs: 3718-8738 calories/day Method to Estimate Energy Needs: kcal/kg [...] 83 y.o. male who was admitted to [facility] in [place] on 08/13/2023 for Hematuria [R31.9] Precautions Other [...] mmHg O2: 96% Room air Outcome Measures: [facility] Inpatient Short Form: -[facility] Basic Mobility (V.2) How much help [...] 3-5 steps with a railing?: A Little -[facility] Basic Mobility (V.2) Raw Score: 18 -[facility] Basic Mobility (V.2) Standardized Score: 41.05 Interpretation: Based on scoring guidelines using the raw score value: Those going to home had an average score at or above 18 Those going to facility had an average score at or below 17 Clinicians answer the -[facility] Inpatient Short Form based on observed [...] Ongoing PT Goal #2: Patient will perform eap-gv-nwtov transfer with modified independence and least restrictive [...] in place draining clear pink urine I/O ([id number]): 370 p.o. intake 1 L urine output [...] locallyfor CBI. He was subsequently transferred to [facility] 08/12 for difficulty irrigating his catheter [...] 2.5 mg BID eliquis [facility] --transition from eliquis [...] have him follow up with his local diazo technician Comorbidities: --history of DVT status post [...] tamsulosin, rosuvastatin Held Home Meds: None Consults: Laz Hernandez M.D. 08/19/2023 Please page the Urology Chief Service with questions or concerns. Pager during business hours: [phone] Pager after hours: [phone] * Lisa Seaman, O.Maira., [facility] - 08/18/2023 11:15 AM CDT Occupational Therapy [facility] Inpatient Treatment SUBJECTIVE Patient's Name: Kalen Vega Referring/Attending Provider: Boubacar Brock M.D. Reason for Referral: Occupational Therapy Evaluation and Treatment History of Present Illness: Kalen Vega is a 83 y.o. male who was admitted to [facility] in [place] on 08/13/2023 for Hematuria [R31.9]. Precautions Other [...] pressure: 168/97 - nurse notified Outcome Measures: [facility] Inpatient Short Form: Putting on and taking [...] at or below 17 Clinicians answer the [facility] Inpatient Short Form based on observed patient [...] doffing over it last. Recommended adaptive equipment: Chemist Instrumentation and Sock Aid. Patient was left in bedside chair, with nursing/LINUX SYSTEMS ENGINEER at end of session with call light [...] 83 y.o. male who was admitted to [facility] in [place] on 08/13/2023 for Hematuria [R31.9] Precautions Other [...] vital signs with primary service. Outcome Measures: -[facility] Inpatient Short Form: AM-PAC Basic Mobility (V.2) [...] 3-5 steps with a railing?: A Little AM-[facility] Basic Mobility (V.2) Raw Score: 18 AM-PAC [...] following coordination of care occurred with the sausage grinder/Caregiver Present: No Patient was left in bedside [...] Progressing PT Goal #2: Patient will perform ukh-es-tjsqk transfer with modified independence and least restrictive [...] clopidogrel when able Med profile reviewed. Aziza Cortez, Pharm.D., R.Ph. Afternoon aPTT = 64, reduced [...] in place draining clear pink urine I/O ([id number]): 1.2 L p.o. intake 1 L urine [...] locallyfor CBI. He was subsequently transferred to [facility] 08/12 for difficulty irrigating his catheter [...] later today follow up vascular medicine [facility] Summary: Diet: currently limited clears Activity: Ad kong DVT PPX: heparin drip GI PPX: Pantoprazole Bowel Regimen:N/A IVF: none Abx/Microbiology: Ceftriaxone Pain Control: Tylenol, oxycodone 08/18. Scheduled trospium Home Meds Resumed: Metoprolol, tamsulosin, rosuvastatin Held Home Meds: None Consults: None Paula Hernandez M.D. 08/18/2023 6:02 AM CDT Please page the Urology Chief Service with questions or concerns. Pager during business hours: [phone] Pager after hours: [phone] * Tayler Greenwood M.D., M.Ed. - 08/17/2023 [...] of his recent open bladder surgery. Tayler rGeenwood MD, MEd * Alia Ruelas, Pharm.D., R.Ph., [facility] - 08/17/2023 6:08 PM CDT Heparin Indication: Deep Vein Thrombosis (DVT) and Pulmonary Embolism (PE) Goal aPTT range: 45 - 60 seconds Recent direct oral Factor Xa inhibitor use: Yes Last Factor Xa dose date/time: Eliquis 2.5 mg 5/8 at 0844 aPTT Results (Past Day) 08/17/2023 [...] the patient follow up with his primary diazo technician at discharge we will which we [...] Status: Pharmacy Complete Set By: Irvin Franco, PharmJonahD., R.Ph. at 08/14/2023 10:22 AM Taking? Last [...] MG) BY MOUTH DAILY * Chance Cassidy PharmJonahDJonah, R.Ph. - 08/17/2023 11:30 AM CDT Pharmacist [...] Ringer's Lactated Ringer's * Lisa Seaman, O.T., MOT - 08/17/2023 10:47 AM CDT Occupational Therapy [facility] Inpatient Treatment SUBJECTIVE Patient's Name: Kalen Vega Referring/Attending Provider: Boubacar Brock M.D. Reason for Referral: Occupational Therapy Evaluation and Treatment History of Present Illness: Kalen Vega is a 83 y.o. male who was admitted to [facility] in [place] on 08/13/2023 for Hematuria [R31.9]. Precautions Other Precautions: abdominal; fall risk; watch HR Pain Assessment: Pain not reported during session. Subjective Comments: Patient greeted in bed and agreeable to therapy session. Team Communication: The patient's status was discussed and coordination of care occurred with RN OBJECTIVE Vital Signs: Vitals taken during session: Pulse rate: 102-128 bpm Outcome Measures: [facility] Inpatient Short Form: Putting on and taking [...] at or below 17 Clinicians answer the [facility] Inpatient Short Form based on observed patient [...] in place draining clear pink urine I/O ([id number]): NG tube 200 cc Two hundred sixty-five [...] locallyfor CBI. He was subsequently transferred to [facility] 08/12 for difficulty irrigating his catheter [...] held since 08/11) -discussed with vascular Medicine curbssyvlia 08/15 regarding ongoing anticoagulation/antiplatelet. Theyfelt he no [...] questions or concerns. Pager during business hours: [phone] Pager after hours: [phone] * AnnamarieAudi menchaca P.T., D.P.T. - 08/16/2023 3:05 PM CDT [...] in place draining clear pink urine I/O ([id number]): NG tube 200 cc Two hundred sixty-five [...] Xarelto last doses of each / On 05/03 developed worsening hematuria ultimately went into clot retention and was admitted locallyfor CBI. He was subsequently transferred to [facility] 08/12 for difficulty irrigating his catheter [...] will discuss with Cardiology need for both [facility] Summary: Diet: NPO Activity: Ad kong DVT PPX: Ashley heparin GI PPX: Pantoprazole Bowel Regimen:N/A IVF: LR 75 Abx/Microbiology: Ceftriaxone Pain Control: Tylenol, oxycodone 08/18. Scheduled trospium Home Meds Resumed: Metoprolol, tamsulosin, rosuvastatin Held Home Meds: None Consults: None Signed by: Paula Hernandez M.D. 08/16/2023 6:02 AM CDT Please page the Urology Chief Service with questions or concerns. Pager during business hours: [phone] Pager after hours: [phone] * Paula Hernandez M.D. - 08/15/2023 9:09 AM CDT PROGRESS NOTE: No events. AFVSS. Pain controlled. No flatus. No further emesis overnight. Abdomen more distended than yesterday but remained soft, tender to deep palpation only, no rebound. Twenty-four Cuban Alcock three-way catheter remains off CBI, draining [...] for CBI. He was subsequently transferred to [facility] 08/12 for difficulty irrigating his catheter [...] above was discussed with Dr. Brock, urology system consultant on-call who is in agreement with [...] Family to bring his home enzalutamide from [place] Irvin Franco Pharm.D., R.Ph. * Jakob De Paz M.D. - 08/14/2023 11:34 AM CDT PROGRESS NOTE: No events. AFVSS. Pain controlled. No flatus. Nauseous and had 2 episodes of emesis. Abdomen more distended than yesterday but remained soft, tender to deep palpation only, no rebound. Twenty-four Cuban Alcock three-way catheter remains off CBI, draining [...] for CBI. He was subsequently transferred to [facility] 08/12 for difficulty irrigating his catheter [...] above was discussed with Dr. Brock, urology system consultant on-call who is in agreement with [...] Patient discussed with Dr. Sylvester. Page CCM3 [id number] Carlos Alberto Henson M.D. PGY-1 CCM 3 [...] who have asked we place a 24 Cuban 3-way urinary catheter pending evaluation. We will [...] stent and hematuria who is transferred from [facility] ED with 3 days of hematuria and [...] him to present to local hospital in [place]. OSH Course: His hemoglobin was in the [...] Insecurity: No Food Insecurity (02/16/2022) [facility] from [facility], [facility] Food Insecurity Worried About Running Out of Food in the Last Year: 1 Transportation Needs: No Transportation Needs (02/16/2022) Received from [facility], [facility] Transportation Needs Lack of Transportation (Medical): 1 Housing Stability: Low Risk (02/16/2022) Received from [facility], [facility] Housing Stability Unable to Pay for [...] Dr. Sylvester and Dr. Rodriguez. Page CCM3 [id number] Carlos Alberto Henson M.D. PGY-1 CCM 3 [...] As expected PRIMARY PROCEDURALIST FAY Cerna MD [phone] ASSISTANTS none COMPLICATIONS None. DRAINS None. IMPLANTS [...] peripheral vein targets. Ultrasound used for assessment: Risktail Fit Provider contacted (include name): Uro Surg [...] 14 -- AST U/L 25 -- Radiology: @[id number]@ Swallow Assessment: No data to display ASSESSMENT / PLAN #1 Hematuria ASSESSMENT Currently we are asked to visit with Mr. Vega for consideration of parenteral nutrition. Nutrition Needs: Height: 180 cm Admission Weight: 91.2 kg (08/13/2023) Current Weight: 90.2 kg BMI (Calculated): 27.8 kg/m?? Total Calorie Needs: 1671-4706 calories/day Method to Estimate Energy Needs: [place] ( ) Weight Used for Equation Calculations: [...] on electrolytes Please call NSS pager at [phone] at [facility] or [phone] at [facility] with any additional questions. * Gilbert [...] values in this interval not displayed. Radiology: @[id number]@ Swallow Assessment: No data to display ASSESSMENT / PLAN #1 Hematuria ASSESSMENT Currently we are asked to visit with Mr. Vega for consideration of parenteral nutrition. Nutrition Needs: Height: 180 cm Admission Weight: 91.2 kg (08/13/2023) Current Weight: 90.2 kg BMI (Calculated): 27.8 kg/m?? Total Calorie Needs: 5294-2101 calories/day Method to Estimate Energy Needs: kcal/kg [...] on electrolytes Please call NSS pager at [phone] at [facility] or [phone] at [facility] with any additional questions. BILLING/CODING Total [...] stent along with other stents and apparently diazo technician in the past I recommended indefinite [...] 20 mL/hr, intravenous, Continuous, Frieda Garner APRN, CRNA, Last Rate: 20 mL/hr at 08/15/23 1459, 20 mL/hr at 08/15/23 1459 lidocaine 5 % 1 patch (LIDODERM), 1 patch, transdermal, Daily, Carlos Alberto Henson M.D., 1 patch at 08/16/23 0828 metoprolol succinate 24 hr tablet 50 mg (TOPROL-XL), 50 mg, oral, Daily, Carlos Alberto Henson M.D., 50 mg at 08/18/23 0811 naloxone injection 0.2 mg (NARCAN), 0.2 mg, intravenous, PRN, Paual Hernandez M.D. ondansetron (PF) injection 4 mg [...] but he can discuss this with his diazo technician at home. We need to balance [...] 83 y.o. male who was admitted to [facility] in [place] on 08/13/2023 for Hematuria [R31.9]. Relevant Medical History: Kalen Vega is a 83 y.o. 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 Outcome Measures: AM-PAC Inpatient Short Form: AM-PAC [...] 3-5 steps with a railing?: A Lot -[facility] Basic Mobility (V.2) Raw Score: 17 -[facility] Basic Mobility (V.2) Standardized Score: 39.67 Interpretation: Based on scoring guidelines using the raw score value: Those going to home had an average score at or above 18 Those going to facility had an average score at or below 17 Clinicians answer the -[facility] Inpatient Short Form based on observed [...] following coordination of care occurred with the sausage grinder/Caregiver Present: SonFavio Patient was left in bedside [...] 83 y.o. male who was admitted to [facility] in [place] on 08/13/2023 for Hematuria with cystotomy and [...] Min assist for mobility. Required assist for [id number]-[id number] for force generation and is generally standby [...] family in the area that could provide 01/11 supervision if needed. Stairs and bed mobility [...] Ongoing PT Goal #2: Patient will perform jcu-wq-xdtin transfer with modified independence and least restrictive [...] 83 y.o. male who was admitted to [facility] in [place] on 08/13/2023 for Hematuria [R31.9]. Relevant Medical [...] with RN, PT Family/Caregiver Present: Son and yrjfyobj-mb-wop. Home Living and Equipment: Lives with: Spouse/Significant [...] walker, Single point cane Adaptive Equipment Owned: Chemist Instrumentation, Long Handled Shoe Horn Other DME Owned: Regular flat bed Prior Level of Function and Mobility: Basic Activities of Daily Living: Independent Instrumental Activities of Daily Living: Required Assistance: Laundry son assists with laundry and cooking Functional Mobility: Independent Driving: Yes Occupational Role: Retired Leisure Interests: watch movies, plays Agenda train, meets friends for breakfast. Patient/Caregiver Goals: [...] Wears glasses all the time Outcome Measures: [facility] Inpatient Short Form: Putting on and taking [...] at or below 17 Clinicians answer the [facility] Inpatient Short Form based on observed patient [...] all are a great support. 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 Patient expressed understanding and was agreeable [...] conversation with his family when social media content specialist entered the room. He was engaged [...] locally at approximately 3:00 a.m. a 22 Cuban three-way catheter was placed and CBI wasinitiated. Unfortunately he clotted off the catheter multiple times despite manual irrigations, started to develop hypotension and tachycardia and [facility] He relays the above history [...] non-distended, non-peritonitic Extremities: No edema : 22 Cuban three-way Tabares catheter draining a minimal amount [...] urinary retention Given his non draining 22 Cuban three-way catheter the Urology techs and I subsequently exchanged this for a 24 Cuban three-way Alcock in the usual sterile fashion. [...] to follow [place] [phone] with questions or concerns Sixto Cain M.D. [...] peripheral vein targets. Ultrasound used for assessment: Pubster VenRedgage Fit Provider contacted (include name): Uro Surg [...] or other central line. * Jose Haro M.S.NJonah, R.N. - 08/14/2023 12:23 PM CDT Patient Transfer Note Patient transferred to: [facility] Room: [facility] Accompanied by: JAMEL Garcia Report called? [...] vital signs? YES * Sixto Teague R.R.T., SiddharthaRJonahTJonah, GROUND WATER CONTRACTOR-[facility] - 08/14/2023 7:00 AM CDT Patient [...] in the last 24hours. Sixto Teague R.R.T., L.RKARIE Gonzalez 08/14/23 7:00 AM CDT Electronically signed by Sixto Teague R.R.T., SiddharthaRMAAME GonzalezCOOK HOSPITALBryon at 08/14/2023 7:02 AM CDT * Radha [...] Bladder Spontaneous Post-op Diagnosis Rupture Bladder Spontaneous Gravity Prospecting Operator A first line production supervisor actively participated and was necessary for one [...] the supine flexed position. His existing 24 Cuban three-way Tabares catheter was noted to be [...] additional tissue for additional coverage. A 24 Cuban three-way catheter was placed with 15 cc in the balloon. This irrigated to light clear pink. A 15 Cuban YARELI drain wasplaced into the pelvis exiting left lower quadrant. The fascia was closed with interrupted and gkekcz-nm-umarh 0 PDS. Fat was approximated using 3-0 [...] MAR: -LR 1 L Bolus x 2 (-) -LR @ 75 cc/hr (08-15 - 08-16) Please contact me if you have questions. Thank you, ELMER Barker, RN, CPN, CCDS, CCS, CRC Clinical Documentation Army Ranger Query created by: ELMER Barker, RN, CPN, [...] stent and hematuria who is transferred from [place] ED with 3 days of hematuria & [...] RN, CPN, CCDS, CCS, CRC Clinical Documentation Army Ranger Query created by: ELMER Barker, RN, CPN, [...] he felt completely obstructed and presented to [place] ED. [place] Course Attempted Tabares insertion but bladder irrigation was unsuccessful on multiple attempts. Hung 1U pRBC's. Given some volume and transferred to [facility] ICU ICU Course Urology consulted and [...] CDT Procedure visit Department of Urology in [place], [place] [address] [place] [address] Paula Hernandez M.D. [address] [place] [address] Pending Results Name Type Priority Associated Diagnoses [...] Hernandez M.D. LAB BLOOD BANK TEST ORDERABLES [facility] [address] [place] [address], [facility] [address] [place] [address] * (ABNORMAL) CBC without Differential (08/26/2023 3:20 AM CDT) Pathologist [facility] Hemoglobin 7.4(L) 13.2 - 16.6 g/dL [...] M.D. LAB BLOOD ADD-ON Performing Organization Address City/[facility]/ZIP Co de Phone Number [facility] [address] [facility] [address] [place] [address] * Magnesium (08/26/2023 3:20 AM CDT) Magnesium, S 2.1 1.7 - 2.3 mg/dL 08/26/2023 4:04 AM CDT DTL Blood (Blood, Venous) 08/26/2023 3:20 AM CDT 08/26/2023 3:50 AM CDT Boubacar Brock M.D. LAB BLOOD ADD-ON [facility] [address] [place] [address], [facility] [address] [place] [id number] * (ABNORMAL) Renal Function Panel (08/26/2023 3:20 [...] CDT Boubacar Brock M.D. LAB BLOOD ADD-ON [facility] [address] [place] [address], [place] DTL [facility] [address] [place] [address] * Heparin Anti-Xa Assay (08/26/2023 3:20 AM CDT) Pathologist [facility] Heparin Anti-Xa, P 0.26 IU/mL 2023 3:58 [...] Hoyt M.D. LAB BLOOD NON ADD -ON [facility] [address] [place] [address], [facility] [address] [place] [address] * (ABNORMAL) CBC without Differential (08/25/2023 3:24 AM CDT) [facility] Hemoglobin 8.3(L) 13.2 - 16.6 g/dL 08/25/2023 [...] CDT Corin Ring M.D. LAB BLOOD ADD-ON [facility] [address] [place] [address], [facility] DTL [facility] [address] [place] [address] * (ABNORMAL) Renal Function Panel (08/25/2023 3:24 AM CDT) Pathologist [facility] Potassium, S 4.1 3.6 - 5.2 [...] M.D. LAB BLOOD ADD-ON Performing Organization Address City[facility]/ZIP Co de Phone Number [facility] [address] [place] [address], [facility] [address] [place] [address] * Magnesium (08/25/2023 3:24 AM CDT) Magnesium, S 2.2 1.7 - 2.3 mg/dL 08/25/2023 4:36 AM CDT DT Blood (Blood, Venous) 08/25/2023 3:24 AM CDT 08/25/2023 4:19 AM CDT Boubacar Brock M.D. LAB BLOOD ADD-ON Performing Organization Address [facility] Co de Phone Number [facility] [address] [place] [address], [facility] [address] [place] [address] * Heparin Anti-Xa Assay (08/25/2023 3:24 AM [...] LAB BLOOD NON ADD-ON Performing Organization Address City[facility]/ZIP Co de Phone Number [facility] [address] [place] [address], [facility] [address] [place] [address] * (ABNORMAL) CBC without Differential (08/24/2023 5:28 [...] CDT Corin Ring M.D. LAB BLOOD ADD-ON [facility] [address] [place] [address], [facility] [address] [place] [address] * Magnesium (08/24/2023 5:28 AM CDT) Magnesium, S 2.3 1.7 - 2.3 mg/dL 08/24/2023 6:19 AM CDT DTL Blood (Blood, Venous) 08/24/2023 5:28 AM CDT 08/24/2023 6:00 AM CDT Boubacar Brock M.D. LAB BLOOD ADD-ON [facility] [address] [place] [address], [facility] [address] [place] [address] * (ABNORMAL) Renal Function Panel (08/24/2023 5:28 [...] M.D. LAB BLOOD ADD-ON Performing Organization Address [facility] Co de Phone Number [facility] [address] [place], [place] [phone] [place] [address] * Heparin Anti-Xa Assay (08/24/2023 5:28 AM [...] LAB BLOOD NON ADD-ON Performing Organization Address [facility] Co de Phone Number [facility] [address] [place] [address], [facility] [address] [place] [address] * (ABNORMAL) Potassium (08/23/2023 9:58 PM CDT) Potassium, S 3.5(L) 3.6 - 5.2 mmol/L 08/23/2023 10:45 PM CDT DTL Blood (Blood, Venous) 08/23/2023 9:58 PM CDT 08/23/2023 10:30 PM CDT Boubacar Brock M.D. LAB BLOOD ADD-ON Performing Organization Address [facility] Co de Phone Number [facility] [address] [place] [address], [facility] [address] [place] [address] * (ABNORMAL) Phosphorus Inorganic (08/23/2023 9:58 PM CDT) Phosphorus (Inorganic), S 2.1(L) 2.5 - 4.5 mg/dL 08/23/2023 10:45 PM CDT DT Blood (Blood, Venous) 08/23/2023 9:58 PM CDT 08/23/2023 10:30 PM CDT Paula Hernandez M.D. LAB BLOOD ADD-ON Performing Organization Address [facility] Co de Phone Number [facility] [address] [place] [address], [facility] [address] [place] [address] * Heparin Anti-Xa Assay (08/23/2023 11:37 AM CDT) Heparin Anti-Xa, P 0.51 IU/mL 2023 12:42 PM CDT DT Comment: [facility]FH therapeutic range: [...] LAB BLOOD NON ADD-ON Performing Organization Address City/[facility]/ZIP Co de Phone Number [facility] [address] DTL [facility] [address] [place] [address] * (ABNORMAL) CBC without Differential (08/23/2023 3:42 AM CDT) [facility] Hemoglobin 8.3(L) 13.2 - 16.6 g/dL 08/23/2023 [...] M.D. LAB BLOOD ADD-ON Performing Organization Address City/[facility]/ZIP Co de Phone Number [facility] [address] [place] [address], [facility] DTL [facility] [address] [place] [address] * Triglycerides (08/23/2023 3:42 AM CDT) Pathologist [...] M.D. LAB BLOOD ADD-ON Performing Organization Address [facility]/ZIP Co de Phone Number [facility] [address] [place], [place] [address] [place] [address] [address] [place] [address] * Magnesium (08/23/2023 3:42 AM CDT) Pathologist [facility] Magnesium, S 2.2 1.7 - 2.3 mg/dL 08/23/2023 4:50 AM CDT DTL Blood (Blood, Venous) 08/23/2023 3:42 AM CDT 08/23/2023 4:19 AM CDT Boubacar Brock M.D. LAB BLOOD ADD-ON Performing Organization Address [facility]/ZIP Co de Phone Number [facility] [address] [place], [place] [phone] [place] [address] [address] [place] [address] * (ABNORMAL) Renal Function Panel (08/23/2023 3:42 AM CDT) Pathologist [facility] Potassium, S 3.1(L) 3.6 - 5.2 mmol/L [...] CDT Boubacar Brock M.D. LAB BLOOD ADD-ON [facility] [address] [place] [address], [facility] [address] [place] [address] * Heparin Anti-Xa Assay (08/23/2023 3:41 AM [...] LAB BLOOD NON ADD-ON Performing Organization Address City[facility]/ZIP Co de Phone Number [facility] [address] [place] [address], [facility] [address] [place] [address] * Glucose, POCT (08/22/2023 11:38 PM CDT) [facility] Glucose, POCT, B 117 70 - 140 mg/dL 08/23/2023 1:06 AM CDT PCLX Site Capillary 08/23/2023 1:06 AM CDT PCLX Last Intake NPO 08/23/2023 1:06 AM CDT PCLX Blood 08/22/2023 11:3 8 PM CDT 08/23/2023 1:06 AM CDT Unknown Provider LAB POCT ORDERABLES- MANUAL POC [facility] [address] [place] [address], [facility] PCLX [facility] POC [address] [place] [address] * Heparin Anti-Xa Assay (08/22/2023 10:14 PM CDT) Pathologist [facility] Heparin Anti-Xa, P 0.50 IU/mL 2023 10:47 [...] Boubacar Brock M.D. LAB BLOOD NON ADD-ON [facility] [address] [place] [address], [place] DTL [facility] [address] [place] [address] * CT Abdomen Pelvis without IV Contrast [...] LAB BLOOD NON ADD-ON Performing Organization Address [facility]/ZIP Co de Phone Number [address] [address], [facility] [address] [address] * Creatinine, Body Fluid (08/22/2023 3:30 PM [...] transport rates. All other fluids refer to [email or web address] for further interpretive information. This test has been modified from the disaster recovery manager's instructions. Its performance characteristics were determined by [facility] in a manner consistent with CLIA requirements. This test has not been cleared or approved by the U.S. Food and Drug Administration. Fluid Type, Creatinine Fluid, Abdomen 08/22/2023 3:52 PM CDT DTL Fluid (Abdomen) 08/22/2023 3 :30 PM CDT 08/22/2023 6:36 PM CDT Corin Ring M.D. LAB BODY FLUIDS AND STOOLS ORDERABLES Performing Organization Address City/[facility]/ZIP Co de Phone Number [address] [address], [facility] DTL [facility] [address] [place] [address] * Transfuse Red Blood Cells : (08/22/2023 [...] of a right IJ vein single-lumen 4 Cuban tunneled PowerPICC ready for immediate use. NR [...] advanced into the IVC and a 4 Cuban dilator advanced over the wire and attached to a one-way stopcock. A suitable exit site in the right anterior chest was anesthetized and a small incision made. A 4 Cuban single-lumen PowerPICC was then tunneled from the [...] Wireadvanced into the IVC and a 4 Cuban dilator advanced over the wire andattached to a one-way stopcock. A suitable exit site in the right anteriorchest was anesthetized and a small incision made. A 4 Cuban single-lumen PowerPICC was then tunneled fromthe skin [...] of a right IJ vein single-lumen 4 Cuban tunneled PowerPICCready for immediate use. NR Kimi [...] M.D. LAB BLOOD ADD-ON Performing Organization Address City/[facility]/ZIP Co de Phone Number [facility] [address] [place] [address], [facility] [address] [place] [address] * Type and Screen (with Reflex Antibody ID) (08/22/2023 2:55 AM CDT) Pathologist [facility] ABORh O Pos Not applicable 08/22/2023 3:25 AM CDT STRM Antibody Screen Negative Negative 08/22/2023 3:38 AM CDT STRM Type & Screen Expiration 08/25/2023 23:59 08/22/2023 3:25 AM CDT STRM Testing Location [place] DEFAULT 08/22/2023 3:07 AM CDT STRM Blood (Blood, Venous) 08/22/2023 2:55 AM CDT 08/22/2023 3:07 AM CDT Latisha Whitehead M.D. LAB BLOOD BANK T EST ORDERABLES Performing Organization Address City/[facility]/ZIP Co de Phone Number [facility] 200 [place] [address], [facility] [address] [place] [address] * (ABNORMAL) Comprehensive Metabolic Panel (08/22/2023 2:40 AM CDT) Pathologist [facility] Potassium, S 3.2(L) 3.6 - 5.2 [...] CDT Latisha Whitehead M.D. LAB BLOOD ADD-ON [facility] [address] [place] [address], [facility] [address] [place] [address] * Heparin Anti-Xa Assay (08/22/2023 2:40 AM [...] BLOOD NON AD D-ON Performing Organization Address [facility]/ZIP Co de Phone Number [facility] [address] [place] [address] * (ABNORMAL) APTT (Activated Partial Thromboplastin Time) (08/22/2023 2:40 AM CDT) [facility] Activated Partial Thrombopl Time, P 64(H) 25 - 37 sec 08/22/2023 3:12 AM CDT [facility] Blood (Blood, Venous) 08/22/2023 2:40 AM CDT 08/22/2023 3:01 AM CDT Latisha Whitehead M.D. LAB BLOOD ADD-ON Performing Organization Address City/[facility]/ZIP Co de Phone Number [facility] 200 [place] [address] * Triglycerides (08/21/2023 7:32 AM CDT) [facility] Triglycerides 98 mg/dL 08/21/2023 9:03 AM CDT DTL Comment: ----REFERENCE VALUE---- Normal: <150 mg/dL Borderline High: 150-199 mg/dL High: 200-499 mg/dL Very High: > or =500 mg/dL Fasting (8 HR or more) Unknown 08/21/2023 8:38 AM CDT DTL Blood (Blood, Venous) 08/21/2023 7:32 AM CDT 08/21/2023 8:38 AM CDT Lizette Harvey M.D. LAB BLOOD ADD-O N [facility] [address] [place] [address] * Phosphorus Inorganic (08/21/2023 7:32 AM CDT) Phosphorus (Inorganic), S 2.6 2.5 - 4.5 mg/dL 08/21/2023 9:03 AM CDT DTL Blood (Blood, Venous) 08/21/2023 7:32 AM CDT 08/21/2023 8:38 AM CDT Lizette Harvey M.D. LAB BLOOD ADD-O N [facility] [address] [place] [address] * Magnesium (08/21/2023 7:32 AM CDT) Magnesium, S 2.3 1.7 - 2.3 mg/dL 08/21/2023 9:03 AM CDT DTL Blood (Blood, Venous) 08/21/2023 7:32 AM CDT 08/21/2023 8:38 AM CDT Lizette N Sax-Bolder M.D. LAB BLOOD ADD-O N Performing Organization Address City/[facility]/ZIP Co de Phone Number [facility] [address] [place] [address], [facility] DTL [facility] [address] [place] [address] * (ABNORMAL) Basic Metabolic Panel (08/21/2023 7:32 [...] Lizette Harvey M.D. LAB BLOOD ADD-O N [facility] [address] [place] [address], [facility] DTL [facility] [address] [place] [address] * (ABNORMAL) CBC without Differential (08/21/2023 7:32 [...] Lizette Harvey M.D. [place] [address], [facility] [address] [place] [address] * Heparin Anti-Xa Assay (08/21/2023 7:32 AM [...] Boubacar Brock M.D. LAB BLOOD NON ADD-ON [facility] [address] [place] [address], [facility] 200 [place] [address] * (ABNORMAL) APTT (Activated Partial Thromboplastin Time) (08/21/2023 7:32 AM CDT) Activated Partial Thrombopl Time, P 49(H) 25 - 37 sec 08/21/2023 8:31 AM CDT DTL Blood (Blood, Venous) 08/21/2023 7:32 AM CDT 08/21/2023 8:06 AM CDT Boubacar Brock M.D. LAB BLOOD ADD-ON Performing Organization Address City/[facility] Co de Phone Number [facility] [address] [place] [address], [facility] [address] [place] [address] * Place peripherally inserted central catheter (PICC) [...] M.D. LAB BLOOD ADD-ON Performing Organization Address City/[facility]/ZIP Co de Phone Number [facility] [address] [place] [address], [facility] [address] [place] [address] * (ABNORMAL) CBC without Differential (08/20/2023 3:19 AM CDT) Pathologist [facility] Hemoglobin 8.9(L) 13.2 - 16.6 g/dL [...] M.D. LAB BLOOD ADD-ON Performing Organization Address City/[facility]/ZIP Co de Phone Number [facility] [address] [place] [address], [facility] [address] [place] [address] * (ABNORMAL) APTT (Activated Partial Thromboplastin Time) (08/20/2023 3:19 AM CDT) Activated Partial Thrombopl Time, P 52(H) 25 - 37 sec 08/20/2023 4:33 AM CDT DTL Blood (Blood, Venous) 08/20/2023 3:19 AM CDT 08/20/2023 4:10 AM CDT Boubacar Brock M.D. LAB BLOOD ADD-ON Performing Organization Address City/[facility]/ZIP Co de Phone Number [facility] [address] [place] [address], [facility] [address] [place] [address] * (ABNORMAL) APTT (Activated Partial Thromboplastin Time) (08/19/2023 10:57 AM CDT) [facility] Activated Partial Thrombopl Time, P 54(H) 25 - 37 sec 08/19/2023 11:44 AM CDT DT Blood (Blood, Venous) 08/19/2023 10:57 AM CDT 08/19/2023 11:26 AM CDT Boubacar Brock M.D. LAB BLOOD ADD-ON Performing Organization Address City/[facility]/ZIP Co de Phone Number [facility] [address] [place] [address], [facility] [address] [place] [address] * (ABNORMAL) APTT (Activated Partial Thromboplastin Time) (08/19/2023 4:51 AM CDT) [facility] Activated Partial Thrombopl Time, P 59(H) 25 - 37 sec 08/19/2023 5:53 AM CDT DT Blood (Blood, Venous) 08/19/2023 4:51 AM CDT 08/19/2023 5:36 AM CDT Boubacar Brock M.D. LAB BLOOD ADD-ON [facility] [address] [place] [address] * (ABNORMAL) APTT (Activated Partial Thromboplastin Time) (08/18/2023 10:03 PM CDT) Pathologist [facility] Activated Partial Thrombopl Time, P 63(H) 25 - 37 sec 08/18/2023 10:41 PM CDT DTL Blood (Blood, Venous) 08/18/2023 10:03 PM CDT 08/18/2023 10:19 PM CDT Boubacar Brock M.D. LAB BLOOD ADD-ON [facility] [address] [place] [address] * (ABNORMAL) APTT (Activated Partial Thromboplastin Time) (08/18/2023 2:50 PM CDT) [facility] Activated Partial Thrombopl Time, P 64(H) 25 - 37 sec 08/18/2023 3:25 PM CDT DT Blood (Blood, Venous) 08/18/2023 2:50 PM CDT 08/18/2023 3:07 PM CDT Boubacar Brock M.D. LAB BLOOD ADD-ON [facility] [address] [address] * (ABNORMAL) APTT (Activated Partial Thromboplastin Time) (08/18/2023 6:42 AM CDT) Pathologist [facility] Activated Partial Thrombopl Time, P 61(H) 25 - 37 sec 08/18/2023 7:28 AM CDT DTL Blood (Blood, Venous) 08/18/2023 6:42 AM CDT 08/18/2023 7:04 AM CDT Boubacar Brock M.D. LAB BLOOD ADD-ON [facility] [address] [place], [place] [address] [place] [address] 200 [place] [address] * (ABNORMAL) APTT (Activated Partial Thromboplastin Time) (08/17/2023 11:04 PM CDT) Activated Partial Thrombopl Time, P 40(H) 25 - 37 sec 08/17/2023 11:46 PM CDT DTL Blood (Blood, Venous) 08/17/2023 11:04 PM CDT 08/17/2023 11:31 PM CDT Boubacar Brock M.D. LAB BLOOD ADD-ON Performing Organization Address City/[facility]/ZIP Co de Phone Number [facility] [address] [place], [place] [address] [place] [address] 200 [place] [address] * US Lower Extremity Veins Bilateral (08/17/2023 [...] and management can be found on the [employer] site. Link [email or web address]/topic/clinical-answers/[email or web address]/[facility]-[phone] Findings discussed with ??Tayler Greenwood, ?? ([id number]) on 08/17/2023 7:11 PM. Procedure Note Jj [...] be found on theAskMayoExpert site. [email or web address]/topic/clinical-answers/[email or web address]/cpm -2049 1725 Findings discussed with Tayler Greenwood MD ([id number]) on 08/17/2023 7:11 PM. IMPRESSION: 1. 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 2. No acute left-sided DVT. Corin Ring M.D. IMG US PROCEDURES * APTT (Activated Partial Thromboplastin Time) (08/17/2023 4:56 PM CDT) Pathologist [facility] Activated Partial Thrombopl Time, P 29 25 - 37 sec 08/17/2023 5:10 PM CDT [facility] Blood (Blood, Venous) 08/17/2023 4:56 PM CDT 08/17/2023 5:00 PM CDT Paula Hernandez M.D. LAB BLOOD ADD-ON [facility] [address] [place] [address], [facility] [address] [place] [address] * ECG 12 Lead (08/16/2023 9:43 PM CDT) Pathologist [facility] Ventricular Rate ECG/Min 134 BPM MUSE [place] Interval 136 ms MUSE QRSD Interval 76 ms MUSE QT Interval 298 ms MUSE QTC Interval 445 ms MUSE P [place] 29 degrees MUSE R [place] -6 degrees MUSE T Wave [place] 21 degrees MUSE 08/16/2023 9:43 PM CDT [...] CDT Geneva Azar M.D. LAB BLOOD ADD-ON [facility] [address] [place] [address], [facility] [address] [place] [address] * (ABNORMAL) Basic Metabolic Panel (08/16/2023 9:40 [...] CDT Geneva Azar M.D. LAB BLOOD ADD-ON [facility] [address] [place] [address], [facility] DTL [facility] [address] [place] [address] * Transfuse Red Blood Cells : (08/16/2023 12:04 PM CDT) Corin Ring M.D. BLOOD TRANSFUSION OR DERABLES * Transfuse Red Blood Cells : , 1 Units (08/16/2023 12:04 PM CDT) Corin Ring M.D. BLOOD TRANSFUSION OR DERABLES * (ABNORMAL) Basic Metabolic Panel (08/16/2023 3:10 AM CDT) [facility] Potassium, S 4.2 3.6 - 5.2 mmol/L [...] CDT Paula Hernandez M.D. LAB BLOOD ADD-ON [facility] [address] [place] [address], [facility] [address] [place] [address] * (ABNORMAL) CBC without Differential (08/16/2023 3:10 AM CDT) Pathologist [facility] Hemoglobin 8.1(L) 13.2 - 16.6 g/dL [...] CDT Paula Hernandez M.D. LAB BLOOD ADD-ON [facility] [address] [place] [address], [facility] [address] [place] [address] * (ABNORMAL) CBC with Differential, Blood (08/15/2023 3:58 PM CDT) Pathologist [facility] Hemoglobin 9.0(L) 13.2 - 16.6 g/dL [...] Carlos Alberto Henson M.D. LAB BLOOD ADD-ON [facility] [address] [place] [address], [facility] DTL [facility] [address] [place] [address] DHPM [facility] [address] [place] [address] * DX Abdomen 1 View (08/15/2023 1:19 [...] tip andsidehole in stomach. Remainder negative. Boubacar Borck M.D. IMG DIAGNOSTIC IMAGI NG PROCEDURES * Patient Status (08/15/2023 11:56 AM CDT) Temperature 36.2 37.0 deg C 08/15/2023 12:04 PM CDT STMA Blood 08/15/2023 11:5 6 AM CDT 08/15/2023 12:03 PM CDT Rae Gonzalez SPECIAL FORCES OFFICER, LOTTERY CLERK, DNAP LAB BLOO D NON ADD-ON [facility] [address] [place] [address], [facility] [address] [place] [address] * Lactate, B - Intra-op (08/15/2023 11:56 AM CDT) Lactate, B 1.1 0.5 - 2.2 mmol/L 08/15/2023 12:06 PM CDT STMA Blood (Blood, Venous) 08/15/2023 11:56 AM CDT 08/15/2023 12:03 PM CDT Hayde Song M.D. LAB BLOOD NON ADD-O N [facility] 200 [place] [address], [facility] [address] [place] [address] * (ABNORMAL) Glucose, Whole Blood (08/15/2023 11:56 AM CDT) Glucose 144(H) 70 - 140 mg/dL 08/15/2023 12:06 PM CDT STMA Blood (Blood, Arterial Line) 08/15/2023 11:56 AM CDT 08/15/2023 12:03 PM CDT Hayde Song M.D. LAB BLOOD ADD-ON Performing Organization Address City/[facility]/ZIP Co de Phone Number [facility] [address] [place] [address], [facility] [address] [place] [address] * Potassium, Blood (08/15/2023 11:56 AM CDT) Potassium, B 4.3 3.6 - 5.2 mmol/L 08/15/2023 12:07 PM CDT STMA Blood (Blood, Arterial Line) 08/15/2023 11:56 AM CDT 08/15/2023 12:03 PM CDT Hayde Song M.D. LAB BLOOD NON ADD-O N [facility] [address] [place] [address], [facility] [address] [place] [address] * Sodium, B (08/15/2023 11:56 AM CDT) Sodium, B 135 135 - 145 mmol/L 08/15/2023 12:06 PM CDT STMA Blood (Blood, Arterial Line) 08/15/2023 11:56 AM CDT 08/15/2023 12:03 PM CDT Hayde Song M.D. LAB BLOOD NON ADD-O N Performing Organization Address City/[facility]/ZIP Co de Phone Number [facility] [address] [place] [address], [facility] [address] [place] [address] * (ABNORMAL) Calcium, Ionized (08/15/2023 11:56 AM CDT) Calcium, Ionized, B 4.53(L) 4.65 - 5.30 mg/dL 08/15/2023 12:07 PM CDT STMA Blood (Blood, Arterial Line) 08/15/2023 11:56 AM CDT 08/15/2023 12:03 PM CDT Hayde Song M.D. LAB BLOOD NON ADD-O N Performing Organization Address [facility] Co de Phone Number [facility] [address] [place] [address], [facility] [address] [place] [address] * (ABNORMAL) Blood Gas with Coox, Arterial [...] BLOOD NON ADD-O N Performing Organization Address [facility] Co de Phone Number [facility] [address] STMA [facility] [address] [place] [address] * FL Fluoro Less Than 1 Hour (08/15/2023 11:22 AM CDT) Narrative 152 HOS LOS RST - 08/15/2023 11:24 AM CDT This exam does not require a radiologist review or interpretation. Please refer to the patient's medical record on this date for clinical details. Boubacar Brock M.D. IMG FLUOROSCOPY PROC EDURES Performing Organization Address [facility] Co de Phone Number 152 HOS LOS RST * Patient Status (08/15/2023 10:28 AM CDT) Temperature 36.1 37.0 deg C 08/15/2023 10:28 AM CDT STMA FIO2 0.55 0.21=AIR 08/15/2023 10:28 AM CDT STMA Blood 08/15/2023 10:2 8 AM CDT 08/15/2023 10:28 AM CDT Rae Gonzalez [employer] OFFICER, LOTTERY CLERK, DNAP LAB BLOO D NON ADD-ON Performing Organization Address City/[facility] Co de Phone Number [facility] [address] [place] [address] * Lactate, B - Intra-op (08/15/2023 10:28 AM CDT) Lactate, B 1.1 0.5 - 2.2 mmol/L 08/15/2023 10:30 AM CDT STMA Blood (Blood, Venous) 08/15/2023 10:28 AM CDT 08/15/2023 10:28 AM CDT Hayde Song M.D. LAB BLOOD NON ADD-O N [facility] [address] [place] [address] * Glucose, Whole Blood (08/15/2023 10:28 AM CDT) Glucose 134 70 - 140 mg/dL 08/15/2023 10:30 AM CDT [facility] Blood (Blood, Arterial Line) 08/15/2023 10:28 AM CDT 08/15/2023 10:28 AM CDT Hayde Song M.D. LAB BLOOD ADD-ON [facility] [address] [place] [address] * Potassium, Blood (08/15/2023 10:28 AM CDT) Potassium, B 4.1 3.6 - 5.2 mmol/L 08/15/2023 10:31 AM CDT [facility] Blood (Blood, Arterial Line) 08/15/2023 10:28 AM CDT 08/15/2023 10:28 AM CDT Hayde RodriguezD. LAB BLOOD NON ADD-O N Performing Organization Address City/[facility]/ZIP Co de Phone Number [facility] [address] [place] [address] * Sodium, B (08/15/2023 10:28 AM CDT) Sodium, B 135 135 - 145 mmol/L 08/15/2023 10:30 AM CDT [facility] Blood (Blood, Arterial Line) 08/15/2023 10:28 AM CDT 08/15/2023 10:28 AM CDT Hayde Song M.D. LAB BLOOD NON ADD-O N Performing Organization Address City/[facility]/ZIP Co de Phone Number [facility] [address] [place] [address] * (ABNORMAL) Calcium, Ionized (08/15/2023 10:28 AM CDT) Calcium, Ionized, B 4.25(L) 4.65 - 5.30 mg/dL 08/15/2023 10:31 AM CDT [facility] Blood (Blood, Arterial Line) 08/15/2023 10:28 AM CDT 08/15/2023 10:28 AM CDT Hayde Song M.D. LAB BLOOD NON ADD-O N [facility] [address] [place], [place] [address] [place] [address] 200 [place] [address] * (ABNORMAL) Blood Gas with Coox, Arterial [...] Song M.D. LAB BLOOD NON ADD-O N [facility] [address] [place] [address], [facility] [address] [place] [address] * Bacteria / Yomaira Culture, Blood #2 (08/15/2023 3:33 AM CDT) Bacteria/Leyla da Culture, Blood No growth after 5 days of incubation. 08/20/2023 6:02 AM CDT DTL Blood (Blood, Peripheral Draw) 08/15/2023 3:33 AM CDT 08/15/2023 5:58 AM CDT Comment:Specimen Source Site : Blood Narrative [facility] - 08/20/2023 6:02 AM CDT Received Bactec aerobic and Bactec anaerobic bottles Carlos Alberto Henson M.D. LAB MICROBIOLOGY - G ENERAL ORDERABLES [facility] [address] [place] [address], [facility] [address] [place] [address] * (ABNORMAL) Basic Metabolic Panel (08/15/2023 3:31 AM CDT) [facility] Potassium, S 4.0 3.6 - 5.2 mmol/L [...] Jakob De Paz M.D. LAB BLOOD ADD-ON [facility] [address] [place], [place] [address] [address] [place] [address] * Bacteria / Yomaira Culture, Blood #1 (08/15/2023 3:31 AM CDT) [facility] Bacteria/Leyla da Culture, Blood No growth after 5 days of incubation. 08/20/2023 6:02 AM CDT DTL Blood (Blood, Peripheral Draw) 08/15/2023 3:31 AM CDT 08/15/2023 5:59 AM CDT Comment:Specimen Source Site : Blood Carlos Alberto Henson M.D. [facility] ORDERABLES [facility] [address] [place] [address], [facility] [address] [place] [address] * (ABNORMAL) CBC with Differential, Blood (08/15/2023 3:30 AM CDT) [facility] Hemoglobin 9.5(L) 13.2 - 16.6 g/dL 08/15/2023 [...] Carlos Alberto Henson M.D. LAB BLOOD ADD-ON [facility] [address] [place] [address], [facility] DTL [facility] [address] [place] [address] [facility] [address] [place] [address] * (ABNORMAL) CBC with Differential, Blood (08/14/2023 [...] Carlos Alberto Henson M.D. LAB BLOOD ADD-ON [facility] [address] [place] [address], [facility] STMA [facility] [address] [place] [address] [facility] [address] [place] [address] * Transfuse Red Blood Cells : , [...] with Differential, Blood (08/14/2023 3:18 AM CDT) [facility] Hemoglobin 7.6(L) 13.2 - 16.6 g/dL 08/14/2023 [...] Carlos Alberto Henson M.D. LAB BLOOD ADD-ON [facility] [address] [place] [address], [facility] STMA [facility] [address] [place] [address] [facility] [address] [place] [address] * (ABNORMAL) Basic Metabolic Panel (08/14/2023 3:18 AM CDT) [facility] Potassium, S 5.4(H) 3.6 - 5.2 mmol/L [...] Carlos Alberto Henson M.D. LAB BLOOD ADD-ON [facility] [address] [place] [address], [facility] [address] [place] [address] * Type and Screen (with Reflex Antibody ID) (08/13/2023 7:35 PM CDT) [facility] ABORh O Pos Not applicable 08/13/2023 7:58 PM CDT STRM Antibody Screen Negative Negative 08/13/2023 8:13 PM CDT STRM Type & Screen Expiration 08/16/2023 23:59 08/13/2023 7:58 PM CDT STRM Testing Location [place] DEFAULT 08/13/2023 7:39 PM CDT STR Blood (Blood, Venous) 08/13/2023 7:35 PM CDT 08/13/2023 7:39 PM CDT Carlos Alberto Henson M.D. LAB BLOOD BANK TEST ORDERABLES Performing Organization Address City/[facility]/ZIP Co de Phone Number [facility] [address] [place] [address], [facility] [address] [place] [address] * (ABNORMAL) Bacteria / Yomaira Culture, Blood #1 (08/13/2023 7:35 PM CDT) [facility] Bacteria/Cand jessica Culture, Blood ESCHERICHIA COLI Growth after 11 Hours (A) 08/16/2023 11:17 AM CDT DTL Comment: 3 of 3 Bottles, Susceptibilities performed on another specimen [id number] Blood (Blood, Peripheral Draw) 08/13/2023 7:35 PM CDT 08/13/2023 8:15 PM CDT Comment:Specimen Source Site : Blood Carlos Alberto Henson M.D. LAB MICROBIOLOGY - G ENERAL ORDERABLES [facility] [address] [place] [address], [facility] DTL [facility] [address] [place] [address] * ECG 12 Lead (08/13/2023 7:02 PM CDT) [facility] Ventricular Rate ECG/Min 128 BPM MUSE VA Interval 138 ms MUSE QRSD Interval 64 ms MUSE QT Interval 304 ms MUSE QTC Interval 443 ms MUSE P [place] 45 degrees MUSE R [place] 34 degrees MUSE T Wave [place] 46 degrees MUSE 08/13/2023 7:02 PM CDT [...] CDT Comment:Specimen Source Site : Blood Narrative [facility] - 08/16/2023 11:17 AM CDT [...] - G ENERAL ORDERABLES Performing Organization Address City/[facility]/ZIP Co de Phone Number [facility] [address] [place], [place] [address] [place] [address] 200 [place] [address] * Magnesium (08/13/2023 5:27 PM CDT) [facility] Signature Magnesium, S 1.9 1.7 - 2.3 mg/dL 08/13/2023 6:12 PM CDT DTL Blood (Blood, Venous) 08/13/2023 5:27 PM CDT 08/13/2023 5:58 PM CDT Carlos Alberto Henson M.D. LAB BLOOD ADD-ON [facility] [address] [place] [address], [facility] [address] [place] [address] * (ABNORMAL) Hepatic Function Panel (08/13/2023 5:27 [...] Carlos Alberto Henson M.D. LAB BLOOD ADD-ON [facility] [address] [address], [facility] [address] * (ABNORMAL) Basic Metabolic Panel (08/13/2023 5:27 [...] Carlos Alberto Henson M.D. LAB BLOOD ADD-ON [address] [address], [facility] [address] [place] [address] * Prothrombin Time (PT) (08/13/2023 5:27 PM [...] Carlos Alberto Henson M.D. LAB BLOOD ADD-ON [facility] [address] [place] [address], [facility] [address] [place] [address] * (ABNORMAL) CBC with Differential, Blood (08/13/2023 5:27 PM CDT) [facility] Hemoglobin 10.0(L) 13.2 - 16.6 g/dL 08/13/2023 [...] M.D. LAB BLOOD ADD-ON Performing Organization Address City/[facility]/ZIP Co de Phone Number [facility] [address] [place] [address], [facility] STMA [facility] [address] [place] [address] DHPM [facility] [address] [place] [address] * (ABNORMAL) Dipstick, Urine (08/13/2023 5:07 PM [...] LAB URINE ORDERABLES Performing Organization Address City/[facility] Co de Phone Number [facility] [address] [place] [address], [facility] [address] [place] [address] * Osmolality, Urine (08/13/2023 5:07 PM CDT) Osmolality, U 351 150 - 1150 mOsm/kg 08/13/2023 7:46 PM CDT DTL Urine 08/13/2023 5:07 PM CDT 08/13/2023 5:45 PM CDT Carlos Alberto Henson M.D. LAB URINE ORDERABLES [facility] [address] [place] [address], [facility] [address] [place] [address] * (ABNORMAL) Microscopic Manual (08/13/2023 5:07 PM [...] Address City/[facility]/ZIP Co de Phone Number [facility] [address] [place] [address], [facility] 200 [place] [address] * pH, Random, Urine (08/13/2023 5:07 PM CDT) pH, Random, U 7.0 4.5 - 8.0 08/13/2023 7:46 PM CDT DTL Urine 08/13/2023 5:07 PM CDT 08/13/2023 5:45 PM CDT Carlos Alberto Henson M.D. LAB URINE ORDERABLES [facility] [address] [place] [address], [facility] [address] [place] [address] * (ABNORMAL) Bacterial Culture, Aerobic + Susceptibility, [...] M.D. LAB MICROBIOLOGY - G ENERAL ORDERABLES [facility] [address] [place] [address], [facility] DTL [facility] [address] [place] [address] * (ABNORMAL) Urinalysis, with Microscopic: Urine, Midstream [...] CDT DTL Predicted 24 [place] [address](H) <229 mg/24 h 08/13/2023 8:50 PM CDT DTL Predicted Range 55359-891210 mg/24 h 08/13/2023 8:50 PM CDT DTL Comment Micro done on <2.5 mL 08/13/2023 7:55 PM CDT DTL Urine (Urine, Midstream) 08/13/2023 5:07 PM CDT 08/13/2023 5:44 PM CDT Carlos Alberto Henson M.D. LAB URINE ORDERABLES [facility] [address] [facility] [place] [address], [place] DTL [facility] [address] [place] [address] * Interpretation of Outside CT Abdomen and [...] may use home supply. 08/17/23: Id'ed by [facility] Rx# [id number], filled 07/22/23. HAZARDOUS - Handle with care. Swallow whole. Do NOT crush, chew or open capsule. Given 08/26/2023 9:12 AM CDT 120 mg Given 08/25/2023 9:08 AM CDT 120 mg Given 08/24/2023 9:12 AM CDT 120 mg Lactated Ringer's 1.5 mL/kg/hr ? 75 kg [place] weight (112.5 mL/hr, rounded to 113 mL/hr), intravenous, Continuous, Starting on Tue08/22/23 at 1030, Conditional Phase Pre-Gastrografin Administration. (Rate = 1.5 mL/kg/hr ideal body weight) Lactated Ringer's 0.75 mL/kg/hr ? 75 kg [place] weight (56.25 mL/hr, rounded to 56.3 mL/hr), [...] use home supply. 08/17/23: Id'ed by [facility] Rx# [id number], filled 07/22/23. HAZARDOUS - Handle with care. Swallow whole. Do NOT crush, chew or open capsule. 09 (Given - Provider: Tayler Forrest R.N. - Comment: Pat Murray, -2nd RN) 0908 (Given - Provider: Taylre Forrest R.N. - Comment: Pt 's own med from home) 911 (Given - Provider: Lupe Valdez R.N.) fat emulsion rab-pep-xxwei & fish oil infusion 50 g (SMOFlipid) [...] R.N. - Comment: verified by Paola Salazar, JAMEL)2127 (Stopped - Provider: Paola Salazar R.N.) lidocaine [...] R.N.) 0638 (Given - Provider: Fatuma See RJonahN.)1749 (Given - Provider: Paola Salazar RJonahN.) 0626 (Given - Provider: Edith Simental RJonahN.)1600 (Due) Continuous Medication Order 08/24/2023 08/25/2023 08/26/2023 [...] with JAMEL Sharma)1153 (Stopped - Provider: Lupe aVldez R.N.) Lactated Ringer's 1.5 mL/kg/hr ? 75 kg [place] weight (112.5 mL/hr, rounded to 113 mL/hr), intravenous, Continuous, Starting on Tue08/22/23 at 1030, Conditional Phase Pre-Gastrografin Administration. (Rate = 1.5 mL/kg/hr ideal body weight) Lactated Ringer's 0.75 mL/kg/hr ? 75 kg [place] weight (56.25 mL/hr, rounded to 56.3 mL/hr), [...] 1547 documented in this encounter Care Teams Gravity Prospecting Operator Relationship Specialty Start Date End Date Elsewhere, Pcp PCP - General Internal Medicine 08/13/23 documented as of this encounter
--- OUTSIDE RECORDS SUMMARY | 2023-09-16 09:01 | XMS_ITS | Encounter Summary ---
Author Organization [facility] Address [address] [place] [address] Care Team Providers Care Chemist Intern Name Role Phone Elsewhere, Pcp Primary Care Provider Unavailabl e Encounter Details Date Type Department Care Team (Latest Contact Info) Description 08/13/2023 Intake [facility] Social History Tobacco Use Types Packs/Day Years Used Date Smoking Tobacco: Never Smokeless Tobacco: Never [facility] Utilities Answer Date Recorded In the past 12 months has [facility] electric, gas, oil, or water company [...] your living situation today? I have a [facility] place to live 08/13/2023 Sex and Gender Information Value Date Recorded Sex Assigned at Not on file Gender Identity Not on file Sexual Orientation Not on file documented as of this encounter Plan of Treatment Upcoming Encounters Date Type Department Care Team (Late st Contact Info) Description 10/14/2023 1:00 PM CDT Procedure visit Department of Urology in [place], [place] [address] [place] [address] Paula Hernandez M.D. 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
--- OUTSIDE RECORDS SUMMARY | 2023-09-16 09:01 | XMS_ITS | Continuity of Care Document ---
Author Organization [facility] Address [address] [place] [address] Care Team Providers Care Middle [employer] Counselor Name Role Phone MASOUD SAUER Primary Care Provider [phone] Assessment No assessment recorded. Plan of Treatment Reminders Order Date Submit Date Provider Last Modified By Organization Details Last Modified Time Details Appointments None recorded . Lab urinalys is, dipstick 2023 024 [email or web address] [facility], [email or web address], [place], [address], 4 15:08:54 culture, urine 2023 024 [facility], [address] [facility], [address], [address], 4 10:11:11 Referral None recorded . Procedures None recorded . Surgeries None recorded . Imaging None recorded . Medication Orders Bactrim DS 800 mg-160 mg tablet 2023 024 [email or web address] [id number], [address] [place], [place], [phone], 4 16:19:28 Patient TargetsNo targets recorded. Patient InstructionsNo instructions recorded. Reason for Referral None Reported. Results Created Date Observation Date Name Description Value Unit Range Abnormal Flag LastModifiedBy Organization Detail LastModifiedTime 06/23/19 24 06/23/2023 urina lysis , dipst ick Color-Status Red Not Available [facility] [email or web address], [place], [address], 06/23/2023 15:08:10 06/23/19 24 06/23/2023 urina lysis , dipst ick pH-Status 7.5 Not Available [facility] [address], [place], [address], 06/23/2023 15:08:10 06/23/19 24 06/23/2023 urina lysis , dipst ick Protein-Stat us >=9.0 Not Available [facility] [address], [place], [address], 06/23/2023 15:08:10 06/23/19 24 06/23/2023 urina lysis , dipst ick Nitrates-Sta tus negati ve Not Available [facility] [address], [place], [address], 06/23/2023 15:08:10 06/23/19 24 06/23/2023 urina lysis , dipst ick Blood-Status Large Not Available [facility] [address], [place], [address], 06/23/2023 15:08:10 06/23/19 24 06/23/2023 urina lysis , dipst ick Leuko-Status Negati ve Not Available [facility] [address], [place], [address], 06/23/2023 15:08:10 06/23/19 24 06/23/2023 urina lysis , dipst ick Specimen Type Voided Not Available [facility] [address], [place], [address], 06/23/2023 15:08:10 07/04/19 24 07/01/2023 CT, abdom en + pelvi s, w/o contr ast No observ ation record ed. [email or web address] [facility] [address], [place], [address], 09/01/2023 14:40:29 07/18/19 24 07/18/2023 XR, kidne y + urete r + bladd er No observ ation record ed. [email or web address] [facility] [address], [place], [address], 07/22/2023 15:56:19 Result Notes None recorded. Procedures Surgical History Date Name Laterality Status Provider Name and Address Organization Details Recorded Time Bladder Scan completed Rabia Ferrell [facility] 06/23/2023 15:08:00 Cystoscopy completed Nicola Ware MD [address] [place] [address], [address], [facility] 12/30/2021 17:11:17 Colonoscopy completed Nicola Ware MD [address] [place] [address],[address], [address], [facility] 12/30/2021 17:11:22 Imaging Results None [...] COLONOSCO PY PREP INSTRUCTI ONS RECEIVED FROM [facility] active Not Available Not Available No t Available furosemide 20 mg tablet TAKE 1 TABLET BY MOUTH DAILY active Not Available Not Available No t Available cefuroxime axetil 500 mg tablet active Not Available Not Available No t Available polyethylen e glycol 3350 17 gram/dose oral powder MIX AND DRINK DIRECTED IN COLONOSCO PY PREP INSTRUCTI ONS RECEIVED FROM [facility] active Not Available Not Available No [...] Status Never Smoker Nicola Ware MD [address] [facility] [address], [place], [address], [facility] [place] 12/30/2021 17:11:00 What Is Your Level [...] Encounter Closed Date Diagnosis/Indication Diagnosis SNOMED-CT Code [id number] Nicola Ware MD [facility] [address] [place] [address] 06/23/2023 14:16:52 06/24/2023 08:40:38 Blood in urine [id number] Health Concerns Section Related Observation LastModified by Organization Detai ls LastModified Time None Recorded Concern Status LastModified by Organization Details LastModified Time None Recorded Payers Encounter Date Sequence Insurance Name Policy Number Policy Krishnan Covered Member ID Krishnan Member ID Guarantor Name 06/23/2023 1 [employer] (MEDICARE REPLACEMENT/ ADVANTAGE - PPO) [id number] José Miguel Vega [id number] José Miguel Vega Notes Date Note Type Note Provider Name and Address Organization Details Recorded Time 06/23/2023 text/html HPI Notes: 83 Y male here after calling triage this AM with hematuria/pain with urination. Patient has stent in place, last exchange 02/08/2022. 06/23/23 visit completed by Curry Ware MD [address] [place] [address],[address], [address], [facility] 06/23/2023 16:19:33
--- OUTSIDE RECORDS SUMMARY | 2023-09-16 09:01 | XMS_ITS | Data Portability ---
Author Organization [facility] Address [address] [facility] [address] [place] [address] Care Team Providers Care Section Supervisor Name Role Phone MASOUD SAUER Primary Care Provider Assessment No assessment recorded. Plan of Treatment Reminders Order Date Submit Date Provider Last Modified By Organization Details Last Modified Time Details Appointments None recorded . Lab urinalys is, dipstick 2023 024 [email or web address] [facility], [address] [place], [address], 4 15:08:54 culture, urine 2023 024 [facility], [address], [place], [address], 4 10:11:11 Referral None recorded . Procedures None recorded . Surgeries cystosco py with ureteral stent exchange (SURG) 2021 022 [email or web address] Not available 2 15:46:30 cystosco py with ureteral stent exchange (SURG) 2021 022 [email or web address] Not available 2 16:50:47 Imaging None recorded . Medication Orders Bactrim DS 800 mg-160 mg tablet 2023 024 [email or web address] [facility][id number], [address] [place], [place], [phone], 4 16:19:28 Myrbetri q 50 mg tablet,e xtended release 2021 022 [facility] #[id number], [address] , [place], [place], [phone], 17:50:02 Patient TargetsNo targets recorded. Patient InstructionsNo instructions recorded. Reason for Referral None Reported. Results Created Date Observation Date Name Description Value Unit Range Abnormal Flag LastModifiedBy Organization Detail LastModifiedTime 06/23/1906/23/2023 URINE CULTU RE final report MICROB IOLOGY RESULT S Not Available [facility] [address], [place], [address], 06/25/2023 10:11:11 06/23/19 24 06/23/2023 urina lysis , dipst ick Color-Status Red Not Available [facility] [address], [place], [address], 06/23/2023 15:08:10 06/23/19 24 06/23/2023 urina lysis , dipst ick pH-Status 7.5 Not Available [facility] [address], [place], [address], 06/23/2023 15:08:10 06/23/19 24 06/23/2023 urina lysis , dipst ick Protein-Stat us >=9.0 Not Available [facility] [address], [place], [address], 06/23/2023 15:08:10 06/23/19 24 06/23/2023 urina lysis , dipst ick Nitrates-Sta tus negati ve Not Available [facility] [address], [place], [address], 06/23/2023 15:08:10 06/23/19 24 06/23/2023 urina lysis , dipst ick Blood-Status Large Not Available [facility] [address], [place], [address], 06/23/2023 15:08:10 06/23/19 24 06/23/2023 urina lysis , dipst ick Leuko-Status Negati ve Not Available [facility] [address], [place], [address], 06/23/2023 15:08:10 06/23/19 24 06/23/2023 urina lysis , dipst ick Specimen Type Voided Not Available [facility] [address], [place], [address], 06/23/2023 15:08:10 03/04/20 20 03/03/2020 NM, bone scan, whole body No observ ation record ed. [email or web address] [facility] [address], [place], [address], 03/11/2020 18:09:57 07/04/19 24 07/01/2023 CT, abdom en + pelvi s, w/o contr ast No observ ation record ed. [email or web address] [facility] [address] [place] [address], [place], [address], 09/01/2023 14:40:29 07/18/19 24 07/18/2023 XR, kidne y + urete r + bladd er No observ ation record ed. [email or web address] [facility] [address], [place], [address], 07/22/2023 15:56:19 Result Notes None recorded. Procedures Surgical History Date Name Laterality Status Provider Name and Address Organization Details Recorded Time Bladder Scan completed Rabia matthews [facility] 06/23/2023 15:08:00 Cystoscopy completed Nicola Ware MD [address] [facility],[address], [place], [address], [facility] [place] [facility] 12/30/2021 17:11:17 Colonoscopy completed Nicola Ware MD [address] [place] [address],[address], [place], [address], [facility] [place] [facility] 12/30/2021 17:11:22 Imaging Results Imaging Date Name Status LastModified by Organiz ation Details LastModified Time 03/03/2020 NM, bone scan, whole body completed [email or web address] [facility] [address], [place], [address], 03/11/2020 18:09:57 07/01/2023 CT, abdomen + pelvis, w/o contrast completed [address] [facility] [address], [place], [address], 09/01/2023 14:40:29 07/18/2023 XR, kidney + ureter + bladder completed [email or web address] [address], [place], [address], 07/22/2023 15:56:19 Procedure Notes None recorded. Medical [...] COLONOSCO PY PREP INSTRUCTI ONS RECEIVED FROM [facility] active Not Available Not Available No t Available furosemide 20 mg tablet TAKE 1 TABLET BY MOUTH DAILY active Not Available Not Available No t Available cefuroxime axetil 500 mg tablet active Not Available Not Available No t Available polyethylen e glycol 3350 17 gram/dose oral powder MIX AND DRINK DIRECTED IN COLONOSCO PY PREP INSTRUCTI ONS RECEIVED FROM [facility] active Not Available Not Available No [...] Updated DateTime 12/30/2021 177.8 cm 27.4 kg/m2 52884.14 g Nicola Ware MD [address] [facility],[address], [address], [facility] 12/30/2021 17:10:12 Date Recorded Body height Body mass index (BMI) Body weight Provider Name and Address Organization Details Last Updated DateTime 03/12/2022 177.8 cm 27.4 kg/m2 82261.14 g Rabia Ferrell [facility] 03/12/2022 13:55:47 Social History Question Answer Notes LastModified by Organizat ion Details LastModified Time Tobacco Smoking Status Never Smoker Nicola Ware MD [address] [facility],[address], [address], [facility] [place] [facility] 12/30/2021 17:11:00 What Is [...] Encounter Closed Date Diagnosis/Indication Diagnosis SNOMED-CT Code [id number] MD MICHELLE [facility] [address] [place] [address] 12/30/2021 16:01:19 01/01/2022 09:36:50 Increased frequency of urination 842025886 Malignant tumor of prostate 648361036 Hydronephrosis 58754138 [id number] Aliza Landeros [facility] [address] [place] [address] 03/12/2022 13:13:50 03/15/2022 14:00:47 Increased frequency of urination 656766806 Malignant tumor of prostate 681187520 Hydronephrosis 83434725 [id number] MD MICHELLE [facility] [address] [place] [address] 06/23/2023 14:16:52 06/24/2023 08:40:38 Blood in urine [id number] Health Concerns Section Related Observation LastModified by Organization Detai ls LastModified Time None Recorded Concern Status LastModified by Organization Details LastModified Time None Recorded Advance Directives Directive None Recorded Payers Encounter Date Sequence Insurance Name Policy Number Policy Krishnan Covered Member ID Krishnan Member ID Guarantor Name 06/23/2023 1 [employer] (MEDICARE REPLACEMENT/ ADVANTAGE - PPO) [id number] José Miguel D Braucher [id number] José Miguel D Braucher 03/12/2022 1 [employer] (MEDICARE REPLACEMENT/ ADVANTAGE - PPO) [id number] José Miguel D Braucher [id number] José Miguel D Braucher 12/30/2021 1 [employer] (MEDICARE REPLACEMENT/ ADVANTAGE - PPO) [id number] José Miguel D Braucher [id number] José Miguel D Braucher Notes Date Note Type Note Provider Name and Address Organization Details Recorded Time 12/30/2021 text/html HPI Notes: Excer pt from hospital consultation... 81 y.o. year old male who was admitted to [facility] for gross hematuria & CT findings. Onset [...] some of the history. Nicola Ware MD [address] [place] [address],[address], [place], [address], [place] [facility] 12/30/2021 23:07:10 03/12/2022 text/html HPI Notes: Excer pt from hospital consultation... 81 y.o. year old male who was admitted to [facility] for gross hematuria & CT findings. Onset [...] some of the history. Nicola Ware MD [address] [place] [address],[address], [address], [facility] 03/12/2022 17:21:47 06/23/2023 text/html HPI Notes: 83 Y male here after calling triage this AM with hematuria/pain with urination. Patient has stent in place, last exchange 02/08/2022. 06/23/23 visit completed by Curry Ware MD [address] [place] [address],[address], [place], [address], [facility] 06/23/2023 16:19:33
== END 2023-09-16 08:52 | disposition home or self-care (01) ==
PROVIDERS: PCP Family Medicine; Visit Provider Nurse Practitioner Family
DX: L89.153 Pressure ulcer of sacral region, stage 3 (principal); N30.41 Irradiation cystitis with hematuria; Y84.2 Radiological procedure and radiotherapy as the cause of abnormal reaction of the patient, or of later complication, without mention of misadventure at the time of the procedure
CPT/HCPCS: 97597; G0463

== ENCOUNTER 2023-09-23 12:42 | Outpatient (CLI) | payer MEDICARE, OTHER, SELFPAY ==
--- OUTSIDE RECORDS SUMMARY | 2023-09-23 12:44 | XMS_ITS | Clinical Summary ---
Author Organization [facility] Address [address] [place] [address] Care Team Providers Care Consumer Affairs Specialist Name Role Phone Cesar Mccollum Primary Care Provider [phone] Allergies No known active allergies Medications Medication [...] this topic Medical Devices Implanted Type Area Client Experience Administrator Device Identifier Shelf Expiration Date Model / Serial / Lot Stent Ureteral Polaris Ultra [id number] - [id number] Implanted:Qty : 1 on 02/08/2022 by Nicola Ware MD at [facility] Stent Right: U[employer]ter [employer] [id number] 10/08/2024 [id number] / [id number] Explanted Type Area Client Experience Administrator Device Identifier Shelf Expiration Date Model / Serial / Lot Stent Came Out Of The Right Ureter Explanted:Qty: 1 on 02/08/2022 by Nicola Ware MD at [facility] Right: Urethra Advance Directives For more information, please contact: [phone] Documents on File Type Date Recorded Patient Conservation Science Officer Expl anation Advance Directives and Living Will 02/17/2022 Health Care Directiv e 05/15/2021 Healthcare Agents on File Name Relationship Healthcare Agent Relationship Communication Mindy Waterman Daughter Co-[employer] Alterna te Health Care Agent Meera Vega Spouse Health Care Agent [phone] (Home) Favio Vega Son Co-First Altern ate Health Care Agent Tereso Vega Son [employer] Alterna te Health Care Agent Care Teams Consumer Affairs Specialist Relationship Specialty Start Date End Date Cesar Mccollum [address] [place] [address] PCP - General Family Medicine 11/22/22
--- OUTSIDE RECORDS SUMMARY | 2023-09-23 12:44 | XMS_ITS | Clinical Summary ---
Author Organization [facility] Address [address] [place] [address] Care Team Providers Care Anaesthesiologist Name Role Phone Elsewhere, Pcp Primary Care Provider Unavailabl e Source Comments Patient records contain information from all sites at [facility]. For routine questions regarding patient records, call [phone] during business hours, M-F 8:00 AM - 5:00 PM Central Time. Record requests for emergency care only can be directed to [phone] at any time.[facility] Allergies No known active allergies Medications [...] minutes, take the second dose and call [phone] Active tamsulosin (FLOMAX) 0.4 mg 24 [...] to catheter removal 20 tablet 4 Active cefdinir (OMNICEF) 300 mg capsule Take [...] capsule 4 08/26/19 24 Discontinued(Dup licate order) sulfamethoxazol e-trimethoprim (BACTRIM DS) 800-160 mg per tablet Take 1 tablet by mouth every 12 (twelve) hours for 2 days. 4 tablet 4 09/17/19 24 Active Problems Problem Noted Date Diagnosed Date Hematuria Gross 08/31/2023 Hematuria 08/13/2023 Lymphedema 03/21/2020 Primary Malignant Neoplasm Of Prostate 0 Cancer Staging:Clinical stage from 03/03/2020:Stage IVB(cT4, cN1, pM1b, PSA: 161.9) - Signed by Tereso Frazier M.D. on 03/21/2020 Encounters Date Type Department Care Team Description 09/21/2023 Clinical Communication Department of Urology in [place], [place] [address] [place] [phone] Paula Hernandez M.D. 09/16/2023 Clinical Communication Department of Urology in [place], [place] [address] [place] [phone] Provider, Unknown follow up questions 09/16/2023 Orders Only Department of Urology in [place], [place] [address] [place] [phone] Paula Hernandez M.D. Hematuria Gross (Primary Dx) 09/15/2023 Clinical Communication [facility] [address] [place] [phone] Yasmine Loco 09/09/2023 12:10 PM CDT Ancillary Procedure Department of Nursing 09/09/2023 7:24 AM CDT - 09/15/2023 5:28 PM CDT Hospital Encounter [facility], Sixth Floor [address] [place] [phone] Gerri Merrill M.D., Ph.D. Sumit Holbrook M.D. Hematuria (Primary Dx) Discharge Disposition: Home or Self Care 09/09/2023 Documentation Department of Urology in [place], [place] [address] [place] [phone] Ko Victoria M.D. 09/06/2023 Orders Only Section of Hyperbaric Medicine in [place], [place] [address] [place] [phone] Kira Ferraro APRN, C.N.P., M.S.N. 09/06/2023 Clinical Communication [facility] [address] [place] [phone] Yasmine Loco 09/01/2023 10:05 AM CDT Ancillary Procedure Department of Nursing 08/31/2023 12:36 PM CDT - 08/31/2023 2:31 PM CDT Surgery [facility] [address] [place] [phone] Mayur Alvarez M.D. CYSTOSCOPY EVACUATION CLOTS 08/31/2023 12:34 PM CD[place] [address] [place] [phone] Joe Stoll M.D. Benjamin Williamson APRN, CRNA 08/31/2023 12:25 PM CDT Ancillary Procedure Department of General Surgery 08/30/2023 7:35 PM CDT - 09/05/2023 4:09 PM CDT Hospital Encounter [facility], First Floor [address] [place] [phone] Kirstin Hughes M.D. [place], R. [place], M.D. Hematuria (Primary Dx); Tachycardia; Hematuria Gross Discharge Disposition: Home-Health Care [facility] 08/30/2023 Documentation Department of Urology in [place], [place] [address] [place] [phone] Corin Ring M.D. 08/30/2023 Intake [facility] 08/26/2023 Orders Only Department of Urology in [place], [place] [address] [place] [phone] Paula Hernandez M.D. 08/23/2023 12:45 AM CDT Ancillary Procedure Department of Nursing 08/15/2023 8:30 AM CDT Anesthesia Event [facility] [address] [place] [phone] Hayde Song M.D. 08/15/2023 7:55 AM CDT - 08/15/2023 11:23 AM CDT Surgery [facility] [address] [place] [phone] Boubacar Brock M.D. Palliative EXPLORATORY LAPAROTOMY, CYSTOTOMY CLOSURE, RIGHT URETERAL STENT EXCHANGE 08/13/2023 4:35 PM CDT Ancillary Procedure Department of Radiology in [place], [place] [address] [place] [phone] Carlos Alberto Henson M.D. 08/13/2023 3:42 PM CDT - 08/26/2023 4:11 PM CDT Hospital Encounter [facility], Sixth Floor [address] [place] [phone] Darnell Garcia M.D. Chow, George K, M.D. Decline Functional Status [R53.81] (Primary Dx); Hematuria [R31.9] Discharge Disposition: Home or Self Care 08/13/2023 Intake [facility] from Last 3 Months Social History Tobacco Use Types Packs/Day Years Used Date Smoking Tobacco: Never Smokeless Tobacco: Never Tobacco Cessation:Counseling Given: Not Answered [facility] Utilities Answer Date Recorded In the past 12 months has [facility], gas, oil, or water [facility] threatened to shut off services in your [...] your living situation today? I have a [facility] place to live 09/09/2023 Sex and [...] CDT Procedure visit Department of Urology in [place], [place] [address] [place] [phone] Paula Hernandez M.D. [address] [place] [phone] Health Maintenance Due Date Last Done Comments Zoster Vaccines (1 of 2) 1989 Depression Screening (Annual PHQ-2) 04/11/2023 Fall Risk Screen (Annual) 04/11/2023 DTaP,Tdap,and Td Vaccines (2 - Td or Tdap) 09/07/2026 09/07/2016 Influenza Vaccine Completed 03/08/2023, 01/28/2022 COVID-19 Vaccine Completed 07/21/2023, , 09/13/2022, Additional history exists Pneumococcal vaccine (65+ years) Completed 07/21/19 24 Medical Devices Implanted Type Area Terminal Make Up Operator Device Identifier Shelf Expiration Date Model / Serial / Lot Clp Hrzn Ti 6 Clp Lg Orng - [id number] Implanted:Qt y: 1 on 08/15/2023 by Boubacar Brock M.D. at [facility] Hardware e.g. pins/screws /rods [employer]dom[employer] [id number] 02/29/2028 [id number] / / [id number] Clp Hrzn Ti 6 Clp Lg Orng - [id number] Implanted:Qt y: 1 on 08/15/2023 by Boubacar Brock M.D. at [facility] Hardware e.g. pins/screws /rods [employer]dom[employer] [id number] 02/29/2028 [id number] / / [id number] Clp Hrzn Ti 6 Clp Md Monty - [id number] Implanted:Qt y: 1 on 08/15/2023 by Boubacar Brock M.D. at [facility] Hardware e.g. pins/screws /rods [employer]dom[employer] [id number] 03/13/2028 [id number] / / [id number] Clp Hrzn Ti 6 Clp Md Monty - [id number] Implanted:Qt y: 1 on 08/15/2023 by Boubacar Brock M.D. at [facility] Hardware e.g. pins/screws /rods [employer]dom[employer] [id number] 03/21/2028 [id number] / / [id number] Stnt Uret Inl 6fx24 - [id number] Implanted:Qt y: 1 on 08/15/2023 by Jakob De Paz M.D. at [facility] Ureteral Stent N/A: Ureter C.[employer].Bard [id number] 11/18/2027 [id number] / / [id number] Procedures Procedure Name Priority Date/Time Associated Diagnosis [...] and all outpatients) 09/13/2023 2:20 PM CDT FUNGAL CULTURE, ROUTINE Timed 09/13/2023 2:17 PM CDT BACTERIAL CULTURE, [...] LINE INSERTION Routine 08/15/2023 9:51 AM CDT MO US GUIDE VASC ACCESS Routine 08/15/2023 9:51 AM CDT MO ARTL CATH/CNULA MONITOR PERC Routine 08/15/2023 9:51 [...] of20 resultswithin the time period is included. Pathologist [facility] Hemoglobin 9.8(L) 13.2 - 16.6 g/dL 09/15/2023 [...] CDT Paula Hernandez M.D. LAB BLOOD ADD-ON [facility] [address] [place] [address], [facility] DTFormerly named [facility] [address] [place] [address] * Heparin Anti-Xa Assay (09/14/2023 3:19 AM [...] Sumit Holbrook M.D. LAB BLOOD NON ADD-ON [facility] [address] [place] [address], [place] DTL [facility] [address] [place] [address] * IR Nephrostomy Tube Placement Left (09/13/2023 2:20 PM CDT) Anatomical Region Laterality Modality Genito Urinary, Vascular Int erventional RST LOS, Vascular Interventional ARZ LOS, Vascular Interventional FLA LOS Left X-Ray Angiography Impressions 09/13/2023 2:33 PM CDT Left 10 [place] percutaneous nephrostomy tube placement. EP Narrative 09/13/2023 [...] tract was further dilated and a 10 [place] nephrostomy tube was placed with loop formed [...] sedation timewas: 9 minutes. IMPRESSION: Left 10 [place] percutaneous nephrostomy tube placement. EP Latisha Whitehead M.D. IMG IR PROCEDURE S * Bacterial Culture, Aerobic + Susceptibility (09/13/2023 2:17 PM CDT) Pathologist [facility] Bacterial Culture, Aerobic + Susc No growth after 5 days of incubation. 09/18/2023 12:35 PM CDT DTL Fluid (Kidney, Left) 09/13/2023 2:17 PM CDT 09/13/2023 3:56 PM CDT Comment:Specimen Source Site : Fluid Latisha Whitehead M.D. LAB MICROBIOLOGY - GENERAL ORDERABLES Performing Organization Address [facility] Co de Phone Number [facility] [address] [place] [address] * Gram Stain (09/13/2023 2:17 PM CDT) [facility] Gram Stain No organisms seen. White blood cells, Rare 09/13/2023 9:02 PM CDT DTL Fluid (Kidney, Left) 09/13/2023 2:17 PM CDT 09/13/2023 3:56 PM CDT Comment:Specimen Source Site : Fluid Latisha Whitehead M.D. LAB MICROBIOLOGY - GENERAL ORDERABLES Performing Organization Address City/[facility]/ZIP Co de Phone Number [facility] [address] [place] [address] * APTT (Activated Partial Thromboplastin Time) (09/13/2023 5:56 AM CDT) Only the most recent of18 resultswithin the time period is included. Pathologist [facility] Activated Partial Thrombopl Time, P 35 25 - 37 sec 09/13/2023 7:14 AM CDT DTL Blood (Blood, Venous) 09/13/2023 5:56 AM CDT 09/13/2023 6:53 AM CDT Sumit Holbrook M.D. LAB BLOOD ADD-ON [facility] [address] [place] [address], [facility] DTL [facility] [address] [place] [address] * (ABNORMAL) Basic Metabolic Panel (09/13/2023 5:56 [...] Hernandez M.D. LAB BLOOD ADD-ON [facility] [address] [place] [address], [place] D[place] [facility] [address] [place] [address] * [place] Kidney DMSA (09/12/2023 12:21 PM [...] urinary catheter.No internal vascularity. Js Yang M.D. [facility] US PROCEDURES * Coccyx-Nursing Image Exam (09/09/2023 [...] RAD IMAGI NG PROCEDURES Performing Organization Address [facility] Co de Phone Number [facility] NA * Osmolality, Urine (09/09/2023 11:28 AM CDT) Only the most recent of2 resultswithin the time period is included. Osmolality, U 380 150 - 1150 mOsm/kg 09/09/2023 12:19 PM CDT DTL Urine 09/09/2023 11:2 8 AM CDT 09/09/2023 11:58 AM CDT Jeffery Church M.D. LAB URINE ORDERA BLES Performing Organization Address City/[facility] Co de Phone Number [facility] [address] [place] [address], [facility] DTL [facility] [address] [place] [address] * (ABNORMAL) Dipstick, Urine (09/09/2023 11:28 AM [...] LAB URINE ORDERA BLES Performing Organization Address City/[facility] Co de Phone Number [facility] [address] [place] [address] * pH, Random, Urine (09/09/2023 11:28 AM CDT) Only the most recent of2 resultswithin the time period is included. pH, Random, U 6.3 4.5 - 8.0 09/09/2023 12:19 PM CDT DTL Urine 09/09/2023 11:2 8 AM CDT 09/09/2023 11:58 AM CDT Jeffery Church M.D. LAB URINE ORDERA BLES Performing Organization Address [facility] Co de Phone Number [facility] [address] [place] [address] * (ABNORMAL) Microscopic Manual (09/09/2023 11:28 AM [...] Jeffery Church M.D. LAB URINE ORDERA BLES [facility] [address] [place] [address], [facility] DTL [facility] [address] [place] [address] * (ABNORMAL) Bacterial Culture, Aerobic + Susceptibility, [...] MICROBIOLOGY - GENERAL ORDERABLES Performing Organization Address [facility] de Phone Number [facility] [address] [place] [address], [facility] [address] [place] [address] * (ABNORMAL) Gram Stain, Urine (09/09/2023 11:28 AM CDT) Source Urine, Urine, Straight Catheter 09/09/2023 11:58 AM CDT DTL Gram Stain, U Positive(A) Negative 09/09/2023 12:16 PM CDT DTL Comment: Few Gram-negative bacilli ? Yeast Urine 09/09/2023 11:2 8 AM CDT 09/09/2023 11:58 AM CDT Jeffery Church M.D. LAB URINE ORDERA BLES Performing Organization Address [facility] de Phone Number [facility] [address] [place] [address], [facility] DTFormerly named [facility] [address] [place] [address] * (ABNORMAL) Urinalysis, with Microscopic: Urine, Straight [...] 09/09/2023 1:02 PM CDT DTL Predicted Range 2480-52597 mg/24 h 09/09/2023 1:02 PM CDT DTL Comment Micro done on <2.5 mL 09/09/2023 12:27 PM CDT DTL Urine (Urine, Straight Catheter) 09/09/2023 11:28 AM CDT 09/09/2023 11:58 AM CDT Jeffery Church M.D. LAB URINE ORDERA BLES [facility] [address] [place] [address], [facility] DTFormerly named [facility] [address] [place] [address] * US Kidneys Bilateral with Bladder (09/09/2023 [...] Church M.D. LAB BLOOD ADD-ON [facility] [address] [place] [address], [facility] STMA [facility] [address] [place] [address] * (ABNORMAL) CBC with Differential, Blood (09/09/2023 [...] CDT Jeffery Church M.D. LAB BLOOD ADD-ON [facility] [address] [place] [address], [facility] [address] [place] [address] [facility] [address] [place] [address] * Type and Screen (with Reflex Antibody ID) (09/09/2023 8:03 AM CDT) Only the most recent of6 resultswithin the time period is included. ABORh O Pos Not applicable 09/09/2023 8:47 AM CDT STRM Antibody Screen Negative Negative 09/09/2023 9:02 AM CDT STRM Type & Screen Expiration 09/12/2023 23:59 09/09/2023 8:47 AM CDT STRM Testing Location Marcio DEFAULT 09/09/2023 8:10 AM CDT STRM Blood (Blood, Venous) 09/09/2023 8:03 AM CDT 09/09/2023 8:10 AM CDT Jeffery Church M.D. LAB BLOOD BANK T EST ORDERABLES Performing Organization Address City/[facility]/ZIP Co de Phone Number [facility] [address] [place] [address], [facility] [address] [place] [address] * Potassium (09/05/2023 4:56 AM CDT) Only the most recent of2 resultswithin the time period is included. Potassium, S 3.6 3.6 - 5.2 mmol/L 09/05/2023 5:49 AM CDT DTL Blood (Blood, Venous) 09/05/2023 4:56 AM CDT 09/05/2023 5:22 AM CDT Roxy Romero M.D. LAB BLOOD ADD-ON [facility] [address] [place] [address], [place] [facility] [address] [place] [address] * [place] Fluoro Less Than 1 Hour [...] M.D. IMG FLUOROSCOPY PROCEDURES Performing Organization Address [facility]/ZIP Co de Phone Number 152 HOS LOS [...] (ABNORMAL) Hemoglobin (08/31/2023 4:21 AM CDT) Pathologist [facility] Hemoglobin 7.8(L) 13.2 - 16.6 g/dL 08/31/2023 4:47 AM CDT DTL Blood (Blood, Venous) 08/31/2023 4:21 AM CDT 08/31/2023 4:35 AM CDT Kimi Vieira M.D., M.S. LAB BLOO D ADD-ON Performing Organization Address City/[facility]/ZIP Co de Phone Number [facility] [address] [facility] [address] [place] [address] * Lactate (08/30/2023 9:50 PM CDT) [facility] Lactate, P 1.8 0.5 - 2.2 mmol/L 08/30/2023 10:09 PM CDT [facility] Blood (Blood, Venous) 08/30/2023 9:50 PM CDT 08/30/2023 9:55 PM CDT Shannan Correa D.O., M.H.A. LAB BLOOD NON ADD-ON Performing Organization Address City/[facility]/ZIP Co de Phone Number [facility] [address] [facility] [address] [place] [address] * DX Chest AP or PA and [...] included. Ventricular Rate ECG/Min 145 BPM MUSE MO Interval 136 ms MUSE QRSD Interval 64 ms MUSE QT Interval 260 ms MUSE QTC Interval 403 ms MUSE P Mayview 44 degrees MUSE R [place]view 9 degrees MUSE T Wave Mayview -76 degrees MUSE 08/30/2023 7:44 PM CDT [...] M.D. LAB BLOOD ADD-ON Performing Organization Address City/[facility]/ZIP Co de Phone Number [facility] [address] [place] [address], [place] [address] * Magnesium (08/26/2023 3:20 AM CDT) Only the most recent of6 resultswithin the time period is included. Magnesium, S 2.1 1.7 - 2.3 mg/dL 08/26/2023 4:04 AM CDT DTL Blood (Blood, Venous) 08/26/2023 3:20 AM CDT 08/26/2023 3:50 AM CDT Boubacar Brock M.D. LAB BLOOD ADD-ON Performing Organization Address City/[facility]/ZIP Co de Phone Number [facility] [address] [place] [address], [address] [address] * (ABNORMAL) Phosphorus Inorganic (08/23/2023 9:58 PM CDT) Only the most recent of2 resultswithin the time period is included. Phosphorus (Inorganic), S 2.1(L) 2.5 - 4.5 mg/dL 08/23/2023 10:45 PM CDT DTL Blood (Blood, Venous) 08/23/2023 9:58 PM CDT 08/23/2023 10:30 PM CDT Paula Hernandez M.D. LAB BLOOD ADD-ON [facility] [address] [place] [address], [facility] [address] [place] [address] * Triglycerides (08/23/2023 3:42 AM CDT) Only [...] CDT Boubacar Brock M.D. LAB BLOOD ADD-ON [facility] [address] [place] [address], [facility] [address] [place] [address] * Glucose, POCT (08/22/2023 11:38 PM CDT) Pathologist [facility] Glucose, POCT, B 117 70 - 140 mg/dL 08/23/2023 1:06 AM CDT PCLX Site Capillary 08/23/2023 1:06 AM CDT PCLX Last Intake NPO 08/23/2023 1:06 AM CDT PCLX Blood 08/22/2023 11:3 8 PM CDT 08/23/2023 1:06 AM CDT Unknown Provider LAB POCT ORDERABLES- MANUAL POC [facility] [address] [place] [address], [place] PCLX [facility] [address] [place] [address] * CT Abdomen Pelvis without IV Contrast [...] transport rates. All other fluids refer to www.[facility].com for further interpretive information. This test has been modified from the clinical nutrition manager's instructions. Its performance characteristics were determined by [facility] in a manner consistent with CLIA requirements. This test has not been cleared or approved by the U.S. Food and Drug Administration. Fluid Type, Creatinine Fluid, Abdomen 08/22/2023 3:52 PM CDT DTL Fluid (Abdomen) 08/22/2023 3 :30 PM CDT 08/22/2023 6:36 PM CDT Corin Ring M.D. LAB BODY FLUIDS AND STOOLS ORDERABLES [facility] [address] [place] [address], [place] DTL [facility] [address] [place] [address] * IR PICC Line Placement (08/22/2023 8:35 AM CDT) Anatomical Region Laterality Modality Chest, Pelvis, Abdomen, Vasc ular Interventional RST LOS, Vascular Interventional ARZ LOS, Vascular Interventional FLA LOS N/A X-Ray Angiography Impressions 08/22/2023 9:05 AM CDT Placement of a right IJ vein single-lumen 4 [place] tunneled PowerPICC ready for immediate use. [...] advanced into the IVC and a 4 [place] dilator advanced over the wire and attached to a one-way stopcock. A suitable exit site in the right anterior chest was anesthetized and a small incision made. A 4 [place] single-lumen PowerPICC was then tunneled from [...] Wireadvanced into the IVC and a 4 [place] dilator advanced over the wire andattached to a one-way stopcock. A suitable exit site in the right anteriorchest was anesthetized and a small incision made. A 4 [place] single-lumen PowerPICC was then tunneled fromthe [...] of a right IJ vein single-lumen 4 [place] tunneled PowerPICCready for immediate use. NR [...] CDT Latisha Whitehead M.D. LAB BLOOD ADD-ON [facility] [address] [place] [address], [facility] DTFormerly named [facility] [address] [place] [address] * Place peripherally inserted central catheter (PICC) [...] and management can be found on the [employer] site. Link https://[employer].[facility].org/topic/clinical-answers/cnt-39560947/[facility]-204 [address] Findings discussed with ??Tayler Greenwood, ?? ([id number]) on 08/17/2023 7:11 PM. Procedure Note Jj [...] thrombosis and management can be found on the[employer] site. Linkhttps://[employer].[facility].org/topic/clinical-answers/cnt-[email or web address]/[facility] -2049 1725 Findings discussed with Tayler Greenwood MD ([id number]) on 08/17/2023 7:11 PM. IMPRESSION: 1. Aging, [...] Song M.D. LAB BLOOD NON ADD-O N [facility] [address] [place] [address], [facility] STMA [facility] [place] [address] * Patient Status (08/15/2023 11:56 AM CDT) Only the most recent of2 resultswithin the time period is included. Temperature 36.2 37.0 deg C 08/15/2023 12:04 PM CDT [facility] Blood 08/15/2023 11:5 6 AM CDT 08/15/2023 12:03 PM CDT Rae Gonzalez EDITOR MAP, DIRECTOR OF PATIENT SAFETY, DNAP LAB BLOO D NON ADD-ON Performing Organization Address City/[facility]/[place] [address] * Sodium, B (08/15/2023 11:56 AM CDT) Only the most recent of2 resultswithin the time period is included. Pathologist [facility] Sodium, B 135 135 - 145 mmol/L 08/15/2023 12:06 PM CDT [facility] Blood (Blood, Arterial Line) 08/15/2023 11:56 AM CDT 08/15/2023 12:03 PM CDT Hayde Song M.D. LAB BLOOD NON ADD-O N Performing Organization Address City/[facility]/[place] [address] * (ABNORMAL) Blood Gas with Coox, Arterial [...] Song M.D. LAB BLOOD NON ADD-O N [facility] [address] [place] [address], [facility] 200 [place] [address] * Potassium, Blood (08/15/2023 11:56 AM CDT) Only the most recent of2 resultswithin the time period is included. Potassium, B 4.3 3.6 - 5.2 mmol/L 08/15/2023 12:07 PM CDT [facility] Blood (Blood, Arterial Line) 08/15/2023 11:56 AM CDT 08/15/2023 12:03 PM CDT Hayde Song M.D. LAB BLOOD NON ADD-O N [facility] [address] [place], [place] [address] [place] [address] 200 [place] [address] * (ABNORMAL) Glucose, Whole Blood (08/15/2023 11:56 AM CDT) Only the most recent of2 resultswithin the time period is included. Glucose 144(H) 70 - 140 mg/dL 08/15/2023 12:06 PM CDT [facility] Blood (Blood, Arterial Line) 08/15/2023 11:56 AM CDT 08/15/2023 12:03 PM CDT Hayde Song M.D. LAB BLOOD ADD-ON [facility] [address] [place], [place] [address] [place] [address] [address] [place] [address] * (ABNORMAL) Calcium, Ionized (08/15/2023 11:56 AM CDT) Only the most recent of2 resultswithin the time period is included. Calcium, Ionized, B 4.53(L) 4.65 - 5.30 mg/dL 08/15/2023 12:07 PM CDT [facility] Blood (Blood, Arterial Line) 08/15/2023 11:56 AM CDT 08/15/2023 12:03 PM CDT Hayde Song M.D. LAB BLOOD NON ADD-O N [facility] [address] [place], [place] [id number] [place] [address] [address] [place] [address] * MO ARTL CATH/CNULA MONITOR PERC, MO US GUIDE VASC ACCESS, LDA ANE ARTERIAL LINE INSERTION, MC ANE INVASIVE CATH WITH ULTRASOUND (08/15/2023 9:51 AM CDT) Narrative Rae Gonzalez APRN, DIRECTOR OF PATIENT SAFETY, DNAP - 08/15/2023 9:51 AM CDT Rae Gonzalez APRN, DIRECTOR OF PATIENT SAFETY, DNAP ? 08/15/2023 ??9:52 AM Invasive Catheter [...] ETT location: oral VL device: glide scope [place] scope blade size: 4 Tube size: 7.5 [...] CDT Comment:Specimen Source Site : Blood Narrative [facility] - 08/20/2023 6:02 AM CDT Received Bactec aerobic and Bactec anaerobic bottles Carlos Alberto Henson M.D. LAB MICROBIOLOGY - [facility] ORDERABLES [address] [address], [facility] DTFormerly named [facility] [address] [place] [address] * (ABNORMAL) Hepatic Function Panel (08/13/2023 5:27 [...] Carlos Alberto Henson M.D. LAB BLOOD ADD-ON [facility] [address] [place] [address], [facility] DTFormerly named [facility] [address] [place] [address] * Interpretation of Outside CT Abdomen and [...] CT Body (08/13/2023 4:35 AM CDT) Narrative [facility] - 08/13/2023 12:29 PM CDT This order [...] Advance Directives For more information, please contact: [phone] * Full Code (Latest Code Status on File) Date Activated Date Inactivated Comments 08/30/2023 10:40 PM 09/05/2023 6:15 PM Question Answer Comments Full Code: Not Discussed Due to: Patient not available * Full Code Date Activated Date Inactivated Comments 08/13/2023 4:30 PM 08/26/2023 6:58 PM Question Answer Comments Full Code: Discussed Care Teams Anaesthesiologist Relationship Specialty Start Date End Date Elsewhere, Pcp PCP - General Internal Medicine 08/13/23
--- OUTSIDE RECORDS SUMMARY | 2023-09-23 12:44 | XMS_ITS | Referral Summary ---
Author Organization [facility] Address [address] [place] [id number] Care Team Providers Care Delphi Developer Name Role Phone Cesar Mccollum Primary Care Provider [phone] Allergies No known active allergies Medications Medication [...] on file Medical Devices Implanted Type Area Multimedia Developer Device Identifier Shelf Expiration Date Model / Serial / Lot Stent Ureteral Polaris Ultra [id number] - [id number] Implanted:Qty : 1 on 02/08/2022 by Nicola Ware MD at [facility] Stent Right: Ureter [employer] [id number] 10/08/2024 [id number] Explanted Type Area Multimedia Developer Device Identifier Shelf Expiration Date Model / Serial / Lot Stent Came Out Of The Right Ureter Explanted:Qty: 1 on 02/08/2022 by Nicola Ware MD at [facility] Right: Urethra Advance Directives For more information, please contact: [phone] Documents on File Type Date Recorded Patient 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
--- OUTSIDE RECORDS SUMMARY | 2023-09-23 12:45 | XMS_ITS | Referral Summary ---
Author Organization [facility] Address [address] [place] [address] Care Team Providers Care Criminal Investigator Customs Name Role Phone Elsewhere, Pcp Primary Care Provider Unavailabl e Source Comments Patient records contain information from all sites at [facility]. For routine questions regarding patient records, call [phone] during business hours, M-F 8:00 AM - 5:00 PM Central Time. Record requests for emergency care only can be directed to [phone] at any time.[facility] Encounters Date Type Department Care Team Description 09/21/2023 Clinical Communication Department of Urology in [place], [place] [address] [place] [phone] Paula Hernandez M.D. 09/16/2023 Clinical Communication Department of Urology in [place], [place] [address] [place] [phone] Provider, Unknown follow up questions 09/16/2023 Orders Only Department of Urology in [place], [place] [address] [place] [phone] Paula Hernandez M.D. Hematuria Gross (Primary Dx) 09/15/2023 Clinical Communication [facility] [address] [place] [phone] Yasmine Loco 09/09/2023 7:24 AM CDT - 09/15/2023 5:28 PM CDT Hospital Encounter [facility], [facility], [facility], Sixth Floor [address] [place] [phone] Gerri Merrill M.D., Ph.D. Sumit Holbrook M.D. Hematuria (Primary Dx) Discharge Disposition: Home or Self Care 09/09/2023 12:10 PM CDT Ancillary Procedure Department of Nursing 09/09/2023 Documentation Department of Urology in [place], [place] [address] [place] [phone] Ko Victoria M.D. 09/06/2023 Orders Only Section of Hyperbaric Medicine in [place], [place] [address] [place] [phone] Kira Ferraro APRN, C.N.P., M.S.N. 09/06/2023 Clinical Communication [facility] [address] [place] [phone] Yasmine Loco 08/30/2023 7:35 PM CDT - 09/05/2023 4:09 PM CDT Hospital Encounter [facility], First Floor [address] [place] [phone] Kirstin Hughes M.D. Mayur Alvarez M.D. Hematuria (Primary Dx); Tachycardia; Hematuria Gross Discharge Disposition: Home-Health Care [facility] 09/01/2023 10:05 AM CDT Ancillary Procedure Department of Nursing 08/31/2023 12:25 PM CDT Ancillary Procedure Department of General Surgery 08/31/2023 12:34 PM CDT Anesthesia Event [facility] [address] [place] [phone] Joe Stoll M.D. Gran, Terry L, APRN, CRNA 08/31/2023 12:36 PM CDT - 08/31/2023 2:31 PM CDT Surgery [facility] [address] [place] [phone] Mayur Alvarez M.D. CYSTOSCOPY EVACUATION CLOTS 08/30/2023 Documentation Department of Urology in [place], [place] [address] [place] [phone] Corin Ring M.D. 08/30/2023 Intake [facility] 08/26/2023 Orders Only Department of Urology in [place], [place] [address] [place] [phone] Paula Hernandez M.D. 08/13/2023 3:42 PM CDT - 08/26/2023 4:11 PM CDT Hospital Encounter [facility], [facility], Sixth Floor [address] [place] [phone] Darnell Garcia M.D. Chow, George K, M.D. Decline Functional Status [R53.81] (Primary Dx); Hematuria [R31.9] Discharge Disposition: Home or Self Care 08/23/2023 12:45 AM CDT Ancillary Procedure Department of Nursing 08/15/2023 8:30 AM CDT Anesthesia Event [facility] [address] [place] [phone] Hayde Song M.D. 08/15/2023 7:55 AM CDT - 08/15/2023 11:23 AM CDT Surgery [facility], [address] [place] [phone] Boubacar Brock M.D. Palliative EXPLORATORY LAPAROTOMY, CYSTOTOMY CLOSURE, RIGHT URETERAL STENT EXCHANGE 08/13/2023 4:35 PM CDT Ancillary Procedure Department of Radiology in [place], [place] [address] [place] [phone] Carlos Alberto Henson M.D. 08/13/2023 Intake R[facility] [...] Tobacco: Never Tobacco Cessation:Counseling Given: Not Answered [facility] [employer] Answer Date Recorded In the past 12 months has infoBizz, gas, oil, or water [employer] threatened to shut off services in your [...] your living situation today? I have a [facility] place to live 09/09/2023 Sex and [...] CDT Procedure visit Department of Urology in [place], [place] 200 [place] [phone] Paula Hernandez M.D. 200 [place] [phone] Medical Devices Implanted Type Area Senior Animator Device Identifier Shelf Expiration Date Model / Serial / Lot Clp Hrzn Ti 6 Clp Lg Orng - [id number] Implanted:Qt y: 1 on 08/15/2023 by Boubacar Brock M.D. at [facility] Hardware e.g. pins/screws /rods Abdomen [employer] [id number] 02/29/2028 [id number] / / [id number] Clp Hrzn Ti 6 Clp Lg Orng - [id number] Implanted:Qt y: 1 on 08/15/2023 by Boubacar Brock M.D. at [facility] Hardware e.g. pins/screws /rods Abdomen [employer] [id number] 02/29/2028 [id number] / / [id number] Clp Hrzn Ti 6 Clp Md Monty - [id number] Implanted:Qt y: 1 on 08/15/2023 by Boubacar Brock M.D. at [facility] Hardware e.g. pins/screws /rods Abdomen [employer] [id number] 03/13/2028 [id number] / / [id number] Clp Hrzn Ti 6 Clp Md Monty - [id number] Implanted:Qt y: 1 on 08/15/2023 by Boubacar Brock M.D. at [facility] Hardware e.g. pins/screws /rods Abdomen [employer] [id number] 03/21/2028 [id number] / / [id number] Stnt Uret Inl 6fx24 - [id number] Implanted:Qt y: 1 on 08/15/2023 by Jakob De Paz M.D. at [facility] Ureteral Stent N/A: Ureter [employer] [id number] 11/18/2027 [id number] / / [id number] Procedures Procedure Name Priority Date/Time Associated Diagnosis [...] LINE INSERTION Routine 08/15/2023 9:51 AM CDT [place] US GUIDE VASC ACCESS Routine 08/15/2023 9:51 AM CDT [place] ARTL CATH/CNULA MONITOR PERC Routine 08/15/2023 9:51 [...] M.D. LAB BLOOD ADD-ON Performing Organization Address City/[facility]/ZIP Co de Phone Number [facility] 200 [place], [place] [phone] [place] [address] [facility] 200 [place] [address] * Heparin Anti-Xa Assay (09/14/2023 3:19 AM [...] Sumit Holbrook M.D. LAB BLOOD NON ADD-ON [facility] [address] [place] [address], [facility] 200 [place] [address] * IR Nephrostomy Tube Placement Left (09/13/2023 2:20 PM CDT) Anatomical Region Laterality Modality Genito Urinary, Vascular Int erventional RST LOS, Vascular Interventional ARZ LOS, Vascular Interventional FLA LOS Left X-Ray Angiography Impressions 09/13/2023 2:33 PM CDT Left 10 Malian percutaneous nephrostomy tube placement. EP Narrative 09/13/2023 [...] tract was further dilated and a 10 Malian nephrostomy tube was placed with loop formed [...] sedation timewas: 9 minutes. IMPRESSION: Left 10 Malian percutaneous nephrostomy tube placement. EP Ltaisha CHOUDHARY IR PROCEDURE S * Bacterial Culture, Aerobic + Susceptibility (09/13/2023 2:17 PM CDT) Bacterial Culture, Aerobic + Susc No growth after 5 days of incubation. 09/18/2023 12:35 PM CDT DTL Fluid (Kidney, Left) 09/13/2023 2:17 PM CDT 09/13/2023 3:56 PM CDT Comment:Specimen Source Site : Fluid Latisha Whitehead M.D. LAB MICROBIOLOGY - GENERAL ORDERABLES [facility] [address] [place] [address], [facility] [address] [place] [address] * Gram Stain (09/13/2023 2:17 PM CDT) Gram Stain No organisms seen. White blood cells, Rare 09/13/2023 9:02 PM CDT DT Fluid (Kidney, Left) 09/13/2023 2:17 PM CDT 09/13/2023 3:56 PM CDT Comment:Specimen Source Site : Fluid Latisha Whitehead M.D. LAB MICROBIOLOGY - GENERAL ORDERABLES [facility] [address] [place] [address] * APTT (Activated Partial Thromboplastin Time) (09/13/2023 5:56 AM CDT) Only the most recent of18 resultswithin the time period is included. Pathologist [facility] Activated Partial Thrombopl Time, P 35 25 - 37 sec 09/13/2023 7:14 AM CDT DT Blood (Blood, Venous) 09/13/2023 5:56 AM CDT 09/13/2023 6:53 AM CDT Sumit Holbrook M.D. LAB BLOOD ADD-ON [facility] [address] [place] [address] * (ABNORMAL) Basic Metabolic Panel (09/13/2023 5:56 [...] CDT Paula Hernandez M.D. LAB BLOOD ADD-ON [facility] [address] [place] [address], [facility] [address] [place] [address] * NM Kidney DMSA (09/12/2023 12:21 PM [...] reduced radiotracer uptake asdescribed. Js Yang M.D. [facility] [place] NM PROCEDURES * Transfuse Red Blood Cells [...] RAD IMAGI NG PROCEDURES IIMS NA * Osmolality, Urine (09/09/2023 11:28 AM CDT) Only the most recent of2 resultswithin the time period is included. Osmolality, U 380 150 - 1150 mOsm/kg 09/09/2023 12:19 PM CDT DTL Urine 09/09/2023 11:2 8 AM CDT 09/09/2023 11:58 AM CDT Jeffery Church M.D. LAB URINE ORDERA BLES Performing Organization Address [facility] Co de Phone Number [facility] [address] [place] [address], [facility] [address] [place] [address] * (ABNORMAL) Dipstick, Urine (09/09/2023 11:28 AM [...] LAB URINE ORDERA BLES Performing Organization Address City/[facility] Co de Phone Number [facility] [address] [place] [address], [facility] [address] [place] [address] * pH, Random, Urine (09/09/2023 11:28 AM CDT) Only the most recent of2 resultswithin the time period is included. pH, Random, U 6.3 4.5 - 8.0 09/09/2023 12:19 PM CDT DTL Urine 09/09/2023 11:2 8 AM CDT 09/09/2023 11:58 AM CDT Jeffery Church M.D. LAB URINE STEFFANY BRAVO Performing Organization Address [facility] de Phone Number [facility] [address] [place] [address], [facility] [address] [place] [address] * (ABNORMAL) Microscopic Manual (09/09/2023 11:28 AM [...] AM CDT Jeffery Church M.D. LAB URINE MARLONHelga SHELLY Performing Organization Address [facility] Co de Phone Number [facility] [address] [place] [address], [facility] [address] [place] [address] * (ABNORMAL) Bacterial Culture, Aerobic + Susceptibility, [...] Church M.D. LAB MICROBIOLOGY - GENERAL ORDERABLES [facility] [address] [place] [address], [facility] [address] [place] [address] * (ABNORMAL) Gram Stain, Urine (09/09/2023 11:28 AM CDT) Source Urine, Urine, Straight Catheter 09/09/2023 11:58 AM CDT DTL Gram Stain, U Positive(A) Negative 09/09/2023 12:16 PM CDT DTL Comment: Few Gram-negative bacilli ? Yeast Urine 09/09/2023 11:2 8 AM CDT 09/09/2023 11:58 AM CDT Jeffery Church M.D. LAB URINE ORDERA SHELLY [facility] 200 [place], [place] [address] 200 [place] [address] * (ABNORMAL) Urinalysis, with Microscopic: Urine, Straight [...] 09/09/2023 1:02 PM CDT DTL Predicted Range 2480-74221 mg/24 h 09/09/2023 1:02 PM CDT DTL Comment Micro done on <2.5 mL 09/09/2023 12:27 PM CDT DTL Urine (Urine, Straight Catheter) 09/09/2023 11:28 AM CDT 09/09/2023 11:58 AM CDT Jeffery Church M.D. LAB URINE ORDERA LAKESHAS [facility] [address] [place] [address], [facility] [address] [place] [address] * US Kidneys Bilateral with Bladder (09/09/2023 [...] CDT Jeffery Church M.D. LAB BLOOD ADD-ON [facility] [address] [place] [address], [facility] [address] [place] [address] * (ABNORMAL) CBC with Differential, Blood (09/09/2023 [...] CDT Jeffery Church M.D. LAB BLOOD ADD-ON [facility] [address] [place] [address], [facility] [address] [place] [address] [facility] [address] [place] [address] * Type and Screen (with Reflex Antibody ID) (09/09/2023 8:03 AM CDT) Only the most recent of6 resultswithin the time period is included. ABORh O Pos Not applicable 09/09/2023 8:47 AM CDT STRM Antibody Screen Negative Negative 09/09/2023 9:02 AM CDT STRM Type & Screen Expiration 09/12/2023 23:59 09/09/2023 8:47 AM CDT STRM Testing Location [place] DEFAULT 09/09/2023 8:10 AM CDT STRM Blood (Blood, Venous) 09/09/2023 8:03 AM CDT 09/09/2023 8:10 AM CDT Jeffery Church M.D. LAB BLOOD BANK T EST ORDERABLES Performing Organization Address City/[facility]/ZIP Co de Phone Number [facility] [address] [facility] 200 [place] [address] * Potassium (09/05/2023 4:56 AM CDT) Only the most recent of2 resultswithin the time period is included. Potassium, S 3.6 3.6 - 5.2 mmol/L 09/05/2023 5:49 AM CDT DTL Blood (Blood, Venous) 09/05/2023 4:56 AM CDT 09/05/2023 5:22 AM CDT Roxy Romero M.D. LAB BLOOD ADD-ON [facility] [address] 200 [place] [address] * FL Fluoro Less Than 1 Hour [...] M.D. IMG FLUOROSCOPY PROCEDURES Performing Organization Address [facility] Co de Phone Number 152 HOS [...] RAD IMAGI NG PROCEDURES Performing Organization Address [facility] Co de Phone Number IIMS NA * CT Cystogram without IV [...] in the bladder lumen. Paula Hernandez M.D. [facility] [place] CT PROCEDURES * (ABNORMAL) Hemoglobin (08/31/2023 4:21 AM CDT) Hemoglobin 7.8(L) 13.2 - 16.6 g/dL 08/31/2023 4:47 AM CDT DTL Blood (Blood, Venous) 08/31/2023 4:21 AM CDT 08/31/2023 4:35 AM CDT Kimi Vieira M.D., M.S. LAB BLOO D ADD-ON [facility] [address] [place] [address], [facility] DTL [facility] [address] [place] [address] * Lactate (08/30/2023 9:50 PM CDT) Lactate, P 1.8 0.5 - 2.2 mmol/L 08/30/2023 10:09 PM CDT [facility] Blood (Blood, Venous) 08/30/2023 9:50 PM CDT 08/30/2023 9:55 PM CDT Shannan Correa D.O., M.H.A. LAB BLOOD NON ADD-ON [facility] [address] [place] [address], [facility] [address] [place] [address] * DX Chest AP or PA and [...] PA AND LATERAL 2 VIEWS Procedure Note Alexandra, Valery E, M.D. - 08/31/2023 EXAM: DX CHEST AP [...] included. Ventricular Rate ECG/Min 145 BPM MUSE [place] Interval 136 ms MUSE QRSD Interval 64 ms MUSE QT Interval 260 ms MUSE QTC Interval 403 ms MUSE P Dodson 44 degrees MUSE R Dodson 9 degrees MUSE T Wave Dodson -76 degrees MUSE 08/30/2023 7:44 PM CDT [...] M.D. LAB BLOOD ADD-ON Performing Organization Address City/[facility]/[place] [address] * Magnesium (08/26/2023 3:20 AM CDT) Only the most recent of6 resultswithin the time period is included. Pathologist [facility] Magnesium, S 2.1 1.7 - 2.3 mg/dL 08/26/2023 4:04 AM CDT DTL Blood (Blood, Venous) 08/26/2023 3:20 AM CDT 08/26/2023 3:50 AM CDT Boubacar Brock M.D. LAB BLOOD ADD-ON Performing Organization Address [facility] [place] [address] * (ABNORMAL) Phosphorus Inorganic (08/23/2023 9:58 PM CDT) Only the most recent of2 resultswithin the time period is included. [facility] Phosphorus (Inorganic), S 2.1(L) 2.5 - 4.5 mg/dL 08/23/2023 10:45 PM CDT DT Blood (Blood, Venous) 08/23/2023 9:58 PM CDT 08/23/2023 10:30 PM CDT Paula Hernandez M.D. LAB BLOOD ADD-ON Performing Organization Address City/[facility]/[place] [address] * Triglycerides (08/23/2023 3:42 AM CDT) Only the most recent of2 resultswithin the time period is included. [facility] Triglycerides 106 mg/dL 08/23/2023 4:50 AM CDT DTL Comment: ----REFERENCE VALUE---- Normal: <150 mg/dL Borderline High: 150-199 mg/dL High: 200-499 mg/dL Very High: > or =500 mg/dL Fasting (8 HR or more) Yes 08/23/2023 4:19 AM CDT DTL Blood (Blood, Venous) 08/23/2023 3:42 AM CDT 08/23/2023 4:19 AM CDT Boubacar Brock M.D. LAB BLOOD ADD-ON Performing Organization Address City/[facility]/ZIP Co de Phone Number [facility] 200 [place] [address], [facility] [address] [place] [address] * Glucose, POCT (08/22/2023 11:38 PM CDT) Glucose, POCT, B 117 70 - 140 mg/dL 08/23/2023 1:06 AM CDT PCLX Site Capillary 08/23/2023 1:06 AM CDT PCLX Last Intake NPO 08/23/2023 1:06 AM CDT PCLX Blood 08/22/2023 11:3 8 PM CDT 08/23/2023 1:06 AM CDT Unknown Provider LAB POCT ORDERABLES- MANUAL Performing Organization Address City/[facility]/ZIP Co de Phone Number POC [facility] [address] [place] [address], [facility] PCLX [facility] POC [address] [place] [address] * CT Abdomen Pelvis without IV Contrast [...] transport rates. All other fluids refer to www.[employer]ash.[employer] for further interpretive information. This test has been modified from the cook taco's instructions. Its performance characteristics were determined by [facility] in a manner consistent with CLIA requirements. This test has not been cleared or approved by the U.S. Food and Drug Administration. Fluid Type, Creatinine Fluid, Abdomen 08/22/2023 3:52 PM CDT DTL Fluid (Abdomen) 08/22/2023 3 :30 PM CDT 08/22/2023 6:36 PM CDT Corin Ring M.D. LAB BODY FLUIDS AND STOOLS ORDERABLES [facility] [address] [place] [address], [facility] [address] [place] [address] * IR PICC Line Placement (08/22/2023 8:35 AM CDT) Anatomical Region Laterality Modality Chest, Pelvis, Abdomen, Vasc ular Interventional RST LOS, Vascular Interventional ARZ LOS, Vascular Interventional FLA LOS N/A X-Ray Angiography Impressions 08/22/2023 9:05 AM CDT Placement of a right IJ vein single-lumen 4 Malian tunneled PowerPICC ready for immediate use. NR [...] advanced into the IVC and a 4 Malian dilator advanced over the wire and attached to a one-way stopcock. A suitable exit site in the right anterior chest was anesthetized and a small incision made. A 4 Malian single-lumen PowerPICC was then tunneled from the [...] Wireadvanced into the IVC and a 4 Malian dilator advanced over the wire andattached to a one-way stopcock. A suitable exit site in the right anteriorchest was anesthetized and a small incision made. A 4 Malian single-lumen PowerPICC was then tunneled fromthe skin [...] of a right IJ vein single-lumen 4 Malian tunneled PowerPICCready for immediate use. NR Kimi Vieira M.D., M.S. IMG IR Jay LAWSON * (ABNORMAL) Comprehensive Metabolic Panel (08/22/2023 [...] BLOOD ADD-ON Performing Organization Address [facility] Co de Phone Number [facility] [address] [place] [address], [facility] DTL [facility] [address] [place] [address] * Place peripherally inserted central catheter (PICC) [...] M.D. PROCEDURE/MINOR SURGICAL ORDERABLES Performing Organization Address [facility] Co de Phone Number MMODAL NA * [...] and management can be found on the mycirQle site. Link [email or web address]/[email or web address] Findings discussed with ??Tayler Greenwood, ?? ([id number]) on 08/17/2023 7:11 PM. Procedure Note Jj [...] management can be found on theAskMayoExpert site. [email or web address]/[email or web address] -[email or web address] 1725 Findings discussed with Tayler Greenwood MD ([id number]) on 08/17/2023 7:11 PM. IMPRESSION: 1. Aging, [...] M.D. LAB BLOOD NON ADD-O N [facility] [address] [place] [address], [facility] [address] [place] [address] * Patient Status (08/15/2023 11:56 AM CDT) Only the most recent of2 resultswithin the time period is included. Temperature 36.2 37.0 deg C 08/15/2023 12:04 PM CDT STMA Blood 08/15/2023 11:5 6 AM CDT 08/15/2023 12:03 PM CDT Rae Gonzalez JOB [employer]ESS [employer]EDER, COMMODITY LEAD, DNAP LAB BLOO D NON ADD-ON Performing Organization Address City/[facility]/ZIP Co de Phone Number [facility] [address] [place] [address] * Sodium, B (08/15/2023 11:56 AM CDT) Only the most recent of2 resultswithin the time period is included. Pathologist [facility] Sodium, B 135 135 - 145 mmol/L 08/15/2023 12:06 PM CDT STMA Blood (Blood, Arterial Line) 08/15/2023 11:56 AM CDT 08/15/2023 12:03 PM CDT Hayde Song M.D. LAB BLOOD NON ADD-O N Performing Organization Address City/[facility] Co de Phone Number [facility] [address] [place] [address] * (ABNORMAL) Blood Gas with Coox, Arterial [...] BLOOD NON ADD-O N Performing Organization Address City/[facility] Co de Phone Number [facility] 200 [place], [place] [address] [place] [address] * Potassium, Blood (08/15/2023 11:56 AM CDT) Only the most recent of2 resultswithin the time period is included. Potassium, B 4.3 3.6 - 5.2 mmol/L 08/15/2023 12:[address] [facility] Blood (Blood, Arterial Line) 08/15/2023 11:56 AM CDT 08/15/2023 12:03 PM CDT Hayde Song M.D. LAB BLOOD NON ADD-O N Performing Organization Address City/[facility] Co de Phone Number [facility] [address] [place] [address], [facility] [address] [place] [address] * (ABNORMAL) Glucose, Whole Blood (08/15/2023 11:56 AM CDT) Only the most recent of2 resultswithin the time period is included. Glucose 144(H) 70 - 140 mg/dL 08/15/2023 12:06 PM CDT STMA Blood (Blood, Arterial Line) 08/15/2023 11:56 AM CDT 08/15/2023 12:03 PM CDT Hayde Song M.D. LAB BLOOD ADD-ON Performing Organization Address [facility] Co de Phone Number [facility] [address] [place] [address], [facility] [address] [place] [address] * (ABNORMAL) Calcium, Ionized (08/15/2023 11:56 AM CDT) Only the most recent of2 resultswithin the time period is included. [facility] Calcium, Ionized, B 4.53(L) 4.65 - 5.30 mg/dL 08/15/2023 12:07 PM CDT [facility] Blood (Blood, Arterial Line) 08/15/2023 11:56 AM CDT 08/15/2023 12:03 PM CDT Hayde Song M.D. LAB BLOOD NON ADD-O N Performing Organization Address [facility] Co de Phone Number [facility] [facility] [address] [place] [address], [facility] [address] [place] [address] * [place] ARTL CATH/CNULA MONITOR [place], [place] US GUIDE VASC ACCESS, LDA ANE ARTERIAL [...] ETT location: oral VL device: glide scope Warren scope blade size: 4 Tube size: 7.5 [...] Comment:Specimen Source Site : Blood Narrative [facility] - 08/20/2023 6:02 AM CDT Received Bactec aerobic and Bactec anaerobic bottles Carlos Alberto Henson M.D. LAB MICROBIOLOGY - [facility] ORDERABLES [facility] [address] [place] [address], [facility] [address] [place] [address] * (ABNORMAL) Hepatic Function Panel (08/13/2023 5:27 [...] Carlos Alberto Henson M.D. LAB BLOOD ADD-ON [facility] [address] [place] [address], [place] DTL [facility] [address] [place] [address] * Interpretation of Outside CT Abdomen and [...] CT Body (08/13/2023 4:35 AM CDT) Narrative IIIA - 08/13/2023 12:29 PM CDT This order [...] Advance Directives For more information, please contact: [phone] * Full Code (Latest Code Status on File) Date Activated Date Inactivated Comments 08/30/2023 10:40 PM 09/05/2023 6:15 PM Question Answer Comments Full Code: Not Discussed Due to: Patient not available * Full Code Date Activated Date Inactivated Comments 08/13/2023 4:30 PM 08/26/2023 6:58 PM Question Answer Comments Full Code: Discussed Care Teams Criminal Investigator Customs Relationship Specialty Start Date End Date Elsewhere, Pcp PCP - General Internal Medicine 08/13/23
--- OUTSIDE RECORDS SUMMARY | 2023-09-23 12:45 | XMS_ITS ---
Author Organization [facility] Address [address] [place] [address] Care Team Providers Care Dinkey Press Operator Name Role Phone Unavailable Unavailable Unavailable Surgery Details Not on file Complications Check Surgery Details section. Procedure Estimated Blood Loss Check Surgery Details section. Procedure Findings Check Surgery Details section. Procedure Specimens Taken Check Surgery Details section.
--- OUTSIDE RECORDS SUMMARY | 2023-09-23 12:45 | XMS_ITS | Encounter Summary ---
Author Organization [facility] Address [address] [place] [address] Care Team Providers Care Conveyor Worker Name Role Phone Elsewhere, Pcp Primary Care Provider Unavailabl e Encounter Details Date Type Department Care Team (Late st Contact Info) Description 09/21/2023 Clinical Communication Department of Urology in [place], [place] [address] [place] [address] Paula Hernandez M.D. [address] [place] [address] Social History Tobacco Use Types Packs/Day Years Used Date Smoking Tobacco: Never Smokeless Tobacco: Never [facility] Utilities Answer Date Recorded In the past 12 months has [facility] VCE, gas, oil, or water [employer] threatened to shut off services in your [...] your living situation today? I have a [facility] place to live 09/09/2023 Sex and Gender Information Value Date Recorded Sex Assigned at Not on file Gender Identity Not on file Sexual Orientation Not on file documented as of this encounter Miscellaneous Notes * Telephone Encounter - Paula Hernandez M.D. - 09/21/2023 2:37 PM CDT I called the patient's [place] physician who he saw yesterday, 09/19 in post hospital follow-up. He had a leukocytosis to 13 on CBC collected at that time. He was otherwise feeling well denied fever, chills, flank pain. Of note she did mention that both his nephrostomy tube and his Tabares catheterappeared smith. Both tubes appeared to be draining well without clots. Based on the hematuria and leukocytosis I recommended obtaining cultures from both his Tabares catheter as well as his nephrostomy tube. He has a history of Enterobacter and E coli, I recommended treating empirically for 7 day course based on these, changing if needed based on cultures collected. I let her know that the patient should contact us if the bleeding worsens, if he experiences acute retention, clots in the tubing, if any concern the neph tube was not draining. documented in this encounter Plan of Treatment Upcoming Encounters Date Type Department Care Team (Late st Contact Info) Description 10/14/2023 1:00 PM CDT Procedure visit Department of Urology in [place], [place] [address] [place] [address] Paula Hernandez M.D. [address] [place] [address] documented as of this encounter Visit Diagnoses Not on filedocumented in this encounter Care Teams Conveyor Worker Relationship Specialty Start Date End Date Elsewhere, Pcp PCP - General Internal Medicine 08/13/23 documented as of this encounter
--- OUTSIDE RECORDS SUMMARY | 2023-09-23 12:45 | XMS_ITS ---
Author Organization [facility] Address [address] [place] [address] Care Team Providers Care Job Service Specialist Name Role Phone Elsewhere, Pcp Primary [...] On Elapsed Days Session Dose Total Dose [id number] 04/28/2020 32 300 cGy 6,000 cGy Lifetime Dose Tracking * Chemical Lifetime Dose Automatic Entry Manual Entr y Radiation 20.4 mGy 20.4 mGy 0 mGy Fluoro Time 2.005 minutes 2.005 minutes 0 minutes DAP (uGy-m2) 479.6 uGy-m2 479.6 uGy-m2 0 uGy-m2
--- OUTSIDE RECORDS SUMMARY | 2023-09-23 12:45 | XMS_ITS | Encounter Summary ---
Author Organization [facility] Address [address] [place] [address] Care Team Providers Care Process Controls Technician Name Role Phone Elsewhere, Pcp Primary Care Provider Unavailabl e Reason for Referral * Outpatient (Routine) - Authorized Specialty Diagnoses / Procedures Referred By Leyla rosenthal Referred To Contact Urology Diagnoses Hematuria Paula Benton M.D. [address] [place] [address] [facility] Referral ID Status Reason Start Date Expiration Date V isits Requested Visits Authorized [id number] Authorized 09/15/2023 03/16/2025 1 1 Encounter Details Date Type Department Care Team (Late st Contact Info) Description 09/15/2023 Clinical Communication [facility] [address] [place] [address] Yasmine Loco Social History Tobacco Use Types Packs/Day Years Used Date Smoking Tobacco: Never Smokeless Tobacco: Never [facility] Utilities Answer Date Recorded In [...] your living situation today? I have a [facility] place to live 09/09/2023 Sex and Gender Information Value Date Recorded Sex Assigned at Not on file Gender Identity Not on file Sexual Orientation Not on file documented as of this encounter Plan of Treatment Upcoming Encounters Date Type Department Care Team (Late st Contact Info) Description 10/14/2023 1:00 PM CDT Procedure visit Department of Urology in [place], [place] [address] [place] [address] Paula Hernandez M.D. [address] [place] [address] Scheduled Referrals Name Type Priority Associated Diagnoses [...] documented as of this encounter Care Teams Process Controls Technician Relationship Specialty Start Date End Date Elsewhere, Pcp PCP - General Internal Medicine 08/13/23 documented as of this encounter
--- OUTSIDE RECORDS SUMMARY | 2023-09-23 12:45 | XMS_ITS | Encounter Summary ---
Author Organization [facility] Address [address] [place] [address] Care Team Providers Care Chairman & Chief Executive Officer Name Role Phone Elsewhere, Pcp Primary Care Provider Unavailabl e Reason for Visit * Reason Onset Date Comments follow up questions 09/16/2023 Encounter Details Date Type Department Care Team (Latest Contact Info) Description 09/16/2023 Clinical Communication Department of Urology in [place], [place] [address] [place] [address] Provider, Unknown follow up questions Social History Tobacco Use Types Packs/Day Years Used Date Smoking Tobacco: Never Smokeless Tobacco: Never [employer] Utilities Answer Date Recorded In the past [...] your living situation today? I have a [facility] place to live 09/09/2023 Sex and Gender Information Value Date Recorded Sex Assigned at Not on file Gender Identity Not on file Sexual Orientation Not on file documented as of this encounter Miscellaneous Notes * Telephone Encounter - Leigh Green R.N. - 09/16/2023 2:24 PM CDT Spoke to patient's son, advised to have Mr. Vega push fluids. Patient is on a blood thinner so blood can be expected, if he is pushing fluids and his urine does not lighten up or gets thick like ketchup then he needs to be seen for further evaluation in the emergency room. Son was grateful for the phone call and will start having patient drink fluids. He will reach back out with any further questions or concerns. documented in this encounter Plan of Treatment Upcoming Encounters Date Type Department Care Team (Late st Contact Info) Description 10/14/2023 1:00 PM CDT Procedure visit Department of Urology in [place], [place] [address] [place] [address] Paula Hernandez M.D. [address] [place] [address] documented as of this encounter Visit Diagnoses Not on filedocumented in this encounter Additional Health Concerns Infection Onset Date Last Indicated Resolved Time MDR GNB 09/09/2023 09/09/2023 09/16/2023 5:56 AM CDT documented as of this encounter Care Teams Chairman & Chief Executive Officer Relationship Specialty Start Date End Date Elsewhere, Pcp PCP - General Internal Medicine 08/13/23 documented as of this encounter
--- OUTSIDE RECORDS SUMMARY | 2023-09-23 12:45 | XMS_ITS | Encounter Summary ---
Author Organization [facility] Address [address] [place] [address] Care Team Providers Care Clinical Data Specialist Name Role Phone Elsewhere, Pcp Primary Care Provider Unavailabl e Reason for Referral * Outpatient (Routine) - Authorized Specialty Diagnoses / Procedures Referred By Leyla t Referred To Contact Diagnoses Hematuria Gross Procedures DX Chest AP or PA and Lateral 2 Views Paula Hernandez M.D. [address] [place] [address] [facility] Referral ID Status Reason Start Date Expiration Date V isits Requested Visits Authorized [id number] Authorized 09/16/2023 09/15/2024 1 1 Encounter Details Date Type Department Care Team (Late st Contact Info) Description 09/16/2023 Orders Only Department of Urology in [place], [place] [address] [place] [address] Paula Hernandez M.D. [address] [place] [phone] Hematuria Gross (Primary Dx) Social History Tobacco Use Types Packs/Day Years Used Date Smoking Tobacco: Never Smokeless Tobacco: Never [facility] Utilities Answer Date Recorded In the [...] your living situation today? I have a [facility] place to live 09/09/2023 Sex and Gender Information Value Date Recorded Sex Assigned at Not on file Gender Identity Not on file Sexual Orientation Not on file documented as of this encounter Plan of Treatment Upcoming Encounters Date Type Department Care Team (Late st Contact Info) Description 10/14/2023 1:00 PM CDT Procedure visit Department of Urology in [place], [place] [address] [place] [address] Paula Hernandez M.D. [address] [place] [address] Scheduled Orders Name Type Priority Associated Diagnoses Orde r Schedule DX Chest AP or PA and Lateral 2 Views Imaging RAD - Routine (most inpatients and all outpatients) Hematuria Gross Expected: 09/16/2023, Expires: 12/16/2024 documented as of this encounter Visit Diagnoses Diagnosis Hematuria Gross- Primary documented in this encounter Additional Health Concerns Infection Onset Date Last Indicated Resolved Time MDR GNB 09/09/2023 09/09/2023 09/16/2023 5:56 AM CDT documented as of this encounter Care Teams Clinical Data Specialist Relationship Specialty Start Date End Date Elsewhere, Pcp PCP - General Internal Medicine 08/13/23 documented as of this encounter
--- OUTSIDE RECORDS SUMMARY | 2023-09-23 12:46 | XMS_ITS | Encounter Summary ---
Author Organization [facility] Address [address] [place] [address] Care Team Providers Care Dynamics Ax Consultant Name Role Phone Elsewhere, Pcp Primary Care Provider Unavailabl e Reason for Visit * Reason Comments Urinary Problem Rapid Heart Rate Encounter Details Date Type Department Care Team (Latest Contact Info) Description 08/30/2023 7:35 PM CDT - 09/05/2023 4:09 PM CDT Hospital Encounter [facility], [facility], [facility], First Floor [address] [place] [phone] Kirstin Hughes M.D. [address] [place] [phone] Mayur Alvarez M.D. [address] [place] [phone] Hematuria (Primary Dx); Tachycardia; Hematuria Gross Discharge Disposition: Home-Health Care Svc Social History Tobacco Use Types Packs/Day Years Used Date Smoking Tobacco: Never Smokeless Tobacco: Never [facility] Utilities Answer Date Recorded In [...] [facility] place to live 09/05/2023 Sex and Gender [...] PM CDT DISCHARGE SUMMARY BRIEF OVERVIEW Hospital: [facility] Discharge Provider: Mayur Alvarez M.D. Primary Team: T Urology Surgery - [...] CYSTOGRAM Mayur Alvarez M.D.White, Lindsay A, M.D. [facility] ROMB OR DISCHARGE DISPOSITION Home-Health Care [facility] [6] ACTIVE ISSUES REQUIRING FOLLOW UP OUTPATIENT [...] CONSULT TO CARE MANAGEMENT IP CONSULT TO QUALITY ASSURANCE ASSISTANT WOUND CARE IP CONSULT TO HYPERBARIC MEDICINE CONDITION AT DISCHARGE improved Discharge instructions were provided to the patient and caregiver(s). documented in this encounter Discharge Instructions * Patient Instructions* Carmen Louis, R.N. - 08/31/2023 9:44 AM CDT The Senior LinkAge Line?? is a service of the [place] Board on Aging in partnership with [place]'s Area Agencies on Aging. It is a free service of the [facility] that connects older [place]ians and their families with the help they need. Call the Senior LinkAge Line?? at: [phone] M-F, 8am-4:30pm to connect with specialists that are available to assist you with your specific needsor check out their website at [email or web address] * Attachments The following attachments cannot be sent through Care Everywhere. * Cefdinir (By mouth) (Burmese) documented in this encounter Medications at Time [...] questions or concerns. Pager during business hours: [phone] Pager after hours: [phone] * Jeffery Valdez M.D. - 09/04/2023 10:34 [...] questions or concerns. Pager during business hours: [phone] Pager after hours: [phone] * Jeffery Valdez M.D. - 09/03/2023 4:10 [...] consider [facility]: Diet: Regular Activity: Ad kong [...] questions or concerns. Pager during business hours: [phone] Pager after hours: [phone] * Paula Hernandez M.D. - 09/02/2023 6:25 [...] questions or concerns. Pager during business hours: [phone] Pager after hours: [phone] * Michelle Willams R.N., C.W.C.N. - 09/01/2023 11:43 AM CDT [facility] Wound RN consulted to assess Kalen [...] Secondary Dressing Status Clean;Dry;Intact Changed by Wound portable power tool repairer Ongoing management Nursing;Wound/electronic game developer Urine Assessment Urine Color Colorless Hematuria Scale [place] Urine Appearance Clear;Sediment Head to toe skin [...] nursing. They agree to the plan. The [facility] RN will continue to see the patient, contact or reconsult for worsening wounds or new wounds. * Carmen Louis, R.N. - 09/01/2023 11:21 AM CDT SUBJECTIVE Patient is followed for discharge planning purposes. Patient was unable to be reached by telephone so patient's son was contacted. Son was updated that preferred home health care did decline and son approved sending referrals to all in-network and will update the patient. Son stated that a [employer] Maintenance Worker visited the home and will be trying to assist both and patient with cares/coordination. OBJECTIVE Patient is located on [facility] room 111. Referrals were sent to the following agencies: Home Medical Care - Admitted Since 08/30/2023 Service Provider Request Status Selected Services Address Phone Fax Patient Preferred [facility] [place] Pending - Request Sent N/A [address] [facility] [phone] -- [facility] - Home Care Pending - Request Sent N/A [address] [facility], [facility] [address] -- Home Health Care Pending - Request Sent N/A [address] [facility] [address] -- [facility] Pending - Request Sent N/A [address] [facility] [phone] -- [facility] Pending - Request Sent N/A [address] [facility] [phone] -- [facility] Pending - Request Sent N/A [address] [facility] [address] [phone] -- [facility] Home Health Declined Facility Full N/A [address] [facility] [phone] -- ASSESSMENT / PLAN ASSESSMENT Director Of Strategic Alliances attempted to contact patient on room phone but was unable to get through. Case Manageras able to reach his son who will update that patient that the preferred home health agency was unable to accept and that referrals would be sent to other home health agencies. Requested services arenursing for wound care and catheter and PT/OT. PLAN Director Of Strategic Alliances will follow up with referrals. Case Manger [...] questions or concerns. Pager during business hours: [phone] Pager after hours: [phone] * Paula Hernandez M.D. - 08/31/2023 10:45 [...] questions or concerns. Pager during business hours: [phone] Pager after hours: [phone] Associated attestation - Mayur Alvarez M.D. - [...] discontinuation of antibiotics. Pedrito Salazar Pharm.D., R.Ph., [facility] Admission Medication History Note Adherence issues: No [...] Complete Set By: Demarco Salazar Pharm.D., R.Ph., [facility] at 08/31/2023 7:22 AM Taking? Last Dose [...] an 83 y.o. male transferred to the [facility] ED for further management of [...] for CBI. He was then transferred to [facility] on 08/12; a CT cystogram [...] was initiated on CBI and transferred to [facility] for further management. On my [...] for radiation proctitis SOCIAL HISTORY Lives in [place], [place] OBJECTIVE Vitals Blood pressure 134/84, pulse [...] & Screen Expiration 09/02/2023 23:59 Testing Location [facility] Imagin08/30/23 EXAM: US URINARY BLADDER COMPARISON: CT [...] hematuria, clot obstruction and was transferred to [facility] for further evaluation and management. Urinary bladder ultrasound showing 5 cm clot burden; catheter draining on fast-rate CBI after multiple rounds of hand irrigation. Plan - Continue CBI - Q2h hr hand irrigations - NPO overnight pending am re-evaluation - Hold Plavix, Xarelto for now The above was discussed with Drs. Venegas and Lefty, the chief urology residents medical collections specialist. Please page chief Urology Service [place] [phone] [place] [phone] afterhours. documented in this encounter Procedure Notes [...] on androgen deprivation therapy. 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 No scuba diving experience. Electronic health [...] 11 Referral Reason: Discharge Planning Primary Language: Burmese Piano Mover Services Used: No Person(s) present during interview: [...] Communication: Can write, Talks, Understands speaking, Understands Burmese, Reads Shopping: Needs assistance Medication Management: Independent Housekeeping: Needs assistance Meal Prep: Independent Assistive Devices: Walker - front wheeled, Eyeglasses, Hearing aid(s) Agency Name: [facility] Provided: Nursing Home/PT/OT Transportation: Support from family Baseline Services/Resources Primary care clinic and provider: ELSEWHERE, PCP Additional Resources: N/A Anticipated Needs Functional Status: Housekeeping, Shopping, Transportation use (drive car, use taxi/bus), Mobility, Transfer to/from bed, chair, etc., Bathing Assistive Devices: Eyeglasses, Hearing aid(s), Walker - front wheeled Services/Resources: Home health Agency Name: [facility] Provided: Nursing Home/PT/OT Anticipated Modifications to the Patient's Home: None Transportation Needs: Support from family Does the patient need discharge transport arranged?: No Anticipated Discharge Destination: Home-Health Care [facility] ASSESSMENT / PLAN Assessment: The mold capper helper met with Kalen Vega to discuss his current hospitalization and home goingneeds. The patient was accompanied by son, Kar . The patient was a reliable historian. The role ofRN Director Of Strategic Alliances was reviewed. The patient reviewed his prior level of care and support system. The patient receives support from his and children. The patient described his living environment as a home with bedroom and bathroom on same floor withstairs to enter with rails. Housekeeping, grocery shopping, meal prep, and other household responsibilities have previously been completed by patient and patient's son. mold capper helper discussed the patient's potential needs at dismissal based on their home setting, previous needs and responsibilities, homebound status, and relevant assessments with the patient. The patient will be safe and supported to return home with [facility] or previous services noted above when [...] with cares and needs and his has [facility]. Patient stated that [facility] was supposed to be set- up at discharge after the last hospital stay but that the company never received orders to start care and that he was told by nursing that due to his PICC removal he would not need care. Director Of Strategic Alliances will clarifywith home health team regarding if [...] chart and meeting with the patient, the mold capper helper deemed the LACE+/readmission questions were appropriate. The [...] current readmission could have been prevented. The mold capper helper will share this information with the care team. The patient reports understanding that he will dismiss from the hospital when medically stable. Thefollowing potential barriers to dismissal have been identified: Home Health Care Addendum 1230: Director Of Strategic Alliances called [facility]. They received the referral but declined due to being at capacity. Plan: The patient agrees with the following plan. Patient's anticipated discharge disposition is: Home with Home Healthcare Referrals sent. Transportation upon dismissal will be provided by family--Kar . mold capper helper recommended home health services. mold capper helper provided information regarding the dismissal process and the Senior Linkage Line ([place] Board on Aging) handout. mold capper helper placed or requested the following hospital-based consult orders and/or referrals: None. mold capper helper will follow up with the patient to [...] with updates and/or transition plan to come. mold capper helper encouraged the patient to reach out with [...] CDT Pre-op Diagnosis Hematuria Post-op Diagnosis Hematuria Gluer Machine Operator A assistant import manager actively participated and was necessary for [...] or filling defects. 5. Placement of [address] [place] [address] catheter with 20 cc [...] The resectoscope was removed and a [address] [place] [address] catheter was placed with [...] Resp Rate 08/30/231944 (!) 26 Blood Pressure 05/21/24 1945 133/73 SpO2 08/30/231944 97 % Pain Score [...] secondary to cystostomy closure presenting today from [facility] with concerns for worsening hematuria. He was [...] 08/30/2023 8:48 AM CDT Pt transferred from [facility] via EMS, pt c/o blocked jon cath that started today. Pt had a right uretal stent exchange and an open bladder repair 08/15/23 and was discharged 08/25. Pt had a3 way jon placed at [facility], and transferred here because the clots returned. [...] RN, CPN, CCDS, CCS, CRC Clinical Documentation Universal Winding Machine Operator Query created by: ELMER Barker, RN, CPN, [...] CDT Procedure visit Department of Urology in [place], [place] [address] [place] [phone] Paula Hernandez M.D. [address] [place] [phone] Pending Results Name Type Priority Associated Diagnoses [...] CDT Roxy Romero M.D. LAB BLOOD ADD-ON [facility] [address] [place] [address], [facility] [address] [place] [address] * (ABNORMAL) Basic Metabolic Panel (09/05/2023 4:52 [...] Jakob De Paz M.D. LAB BLOOD ADD-ON [facility] [address] [place] [address], [facility] [address] [place] [address] * (ABNORMAL) Basic Metabolic Panel (09/04/2023 8:15 [...] CDT Jeffery Valdez M.D. LAB BLOOD ADD-ON [address] [address], [facility] [address] [place] [address] * (ABNORMAL) CBC without Differential (09/04/2023 8:15 [...] - 14.5 % 09/04/2023 9:19 PM CDT [facility] Platelet Count 306 135 - 317 x10(9)/L 09/04/2023 9:19 PM CDT [facility] Leukocytes 7.5 3.4 - 9.6 x10(9)/L 09/04/2023 9:19 PM CDT [facility] Blood (Blood, Venous) 09/04/2023 8:15 PM CDT 09/04/2023 8:52 PM CDT Jeffery Valdez M.D. LAB BLOOD ADD-ON [facility] [address] [place] [address], [facility] [address] [place] [address] * Transfuse Red Blood Cells : (09/04/2023 3:30 PM CDT) Jeffery Valdez M.D. BLOOD TRANSFUSION OR DERABLES * Transfuse Red Blood Cells : , 1 Units (09/04/2023 3:30 PM CDT) Jeffery Valdez M.D. BLOOD TRANSFUSION OR DERABLES * Type and Screen (with Reflex Antibody ID) (09/04/2023 10:59 AM CDT) [facility] ABOR O Pos Not applicable 09/04/2023 11:46 AM CDT STRM Antibody Screen Negative Negative 09/04/2023 11:59 AM CDT STRM Type & Screen Expiration 09/07/2023 23:59 09/04/2023 11:46 AM CDT STRM Testing Location [facility] DEFAULT 09/04/2023 11:21 AM CDT STRM Blood (Blood, Venous) 09/04/2023 10:59 AM CDT 09/04/2023 11:21 AM CDT Jeffery Valdez M.D. LAB BLOOD BANK TEST ORDERABLES [facility] [address] [place] [address], [facility] [address] [place] [address] * Heparin Anti-Xa Assay (09/04/2023 7:34 AM CDT) Pathologist [facility] Heparin Anti-Xa, P 0.12 IU/mL 2023 8:14 [...] Alvarez M.D. LAB BLOOD NON A DD-ON [facility] - [address] [address], [facility] [address] [address] * (ABNORMAL) CBC without Differential (09/04/2023 7:34 AM CDT) [facility] Hemoglobin 7.7(L) 13.2 - 16.6 g/dL 09/04/2023 [...] M.D. LAB BLOOD ADD-ON Performing Organization Address [facility] Co de Phone Number [facility] [address] [facility] [address] [place] [address] * Heparin Anti-Xa Assay (09/04/2023 12:30 AM [...] BLOOD NON A DD-ON Performing Organization Address [facility] Co de Phone Number [facility] [address] [place] [address], [facility] [address] [place] [address] * Bacterial Culture, Aerobic + Susceptibility, Urine (09/03/2023 10:50 AM CDT) Pathologist [facility] Urine Culture No growth after 1 day of incubation. 09/04/2023 8:52 AM CDT DTL Urine (Urine, Indwelling Catheter) 09/03/2023 10:50 AM CDT 09/03/2023 11:53 AM CDT Comment:Specimen Source Site : Urine Jeffery Valdez M.D. LAB MICROBIOLOGY - G ENERAL ORDERABLES Performing Organization Address [facility]/ZIP Co de Phone Number [facility] [address] [place] [address], [facility] DTL [facility] [address] [place] [address] * (ABNORMAL) CBC without Differential (09/03/2023 3:29 AM CDT) Pathologist [facility] Hemoglobin 8.0(L) 13.2 - 16.6 g/dL 09/03/2023 [...] M.D. LAB BLOOD ADD-ON Performing Organization Address City/[facility]/ZIP Co de Phone Number [facility] [address] [place] [address], [facility] [address] [place] [address] * Heparin Anti-Xa Assay (09/03/2023 3:29 AM [...] Alvarez M.D. LAB BLOOD NON A DD-ON [facility] [address] [place] [address], [facility] [address] [place] [address] * Heparin Anti-Xa Assay (09/02/2023 2:57 AM CDT) Pathologist [facility] Heparin Anti-Xa, P 0.24 IU/mL 2023 4:09 [...] BLOOD NON A DD-ON Performing Organization Address City/[facility]/ZIP Co de Phone Number [facility] [address] [place], [place] [phone] [place] [address] [facility] [address] [place] [address] * (ABNORMAL) CBC without Differential (09/01/2023 8:16 [...] M.D. LAB BLOOD ADD-ON Performing Organization Address City/[facility]/ZIP Co de Phone Number [facility] [address] [place] [address], [facility] DTL [facility] [address] [place] [address] * Heparin Anti-Xa Assay (09/01/2023 6:50 PM CDT) Pathologist [facility] Heparin Anti-Xa, P 0.35 IU/mL 2023 7:47 PM CDT DT Comment: UFH therapeutic range: [...] BLOOD NON A DD-ON Performing Organization Address City/[facility]/ZIP Co de Phone Number [facility] [address] [place] [address], [facility] [address] [place] [address] * APTT (Activated Partial Thromboplastin Time) (09/01/2023 9:05 AM CDT) Pathologist [facility] Activated Partial Thrombopl Time, P 28 25 - 37 sec 09/01/2023 9:35 AM CDT [facility] Blood (Blood, Venous) 09/01/2023 9:05 AM CDT 09/01/2023 9:21 AM CDT Paula Hernandez M.D. LAB BLOOD ADD-ON [facility] [address] [place] [address], [facility] STMA [facility] [address] [place] [address] * (ABNORMAL) Basic Metabolic Panel (08/31/2023 9:36 [...] [facility] [address] [place] [address], [facility] [address] [place] [address] * (ABNORMAL) CBC without Differential (08/31/2023 9:36 [...] CDT Paula Hernandez M.D[place] [address], [facility] [place] [place] [address] * [place] Fluoro Less Than 1 Hour [...] Vieira M.D., M.S. LAB BLOO D ADD-ON [facility] [address] [place] [address], [facility] [address] [place] [address] * Type and Screen (with Reflex Antibody ID) (08/30/2023 9:50 PM CDT) [facility] ABORh O Pos Not applicable 08/30/2023 10:17 PM CDT STRM Antibody Screen Negative Negative 08/30/2023 10:31 PM CDT STRM Type & Screen Expiration 09/02/2023 23:59 08/30/2023 10:17 PM CDT STRM Testing Location [facility] DEFAULT 08/30/2023 9:58 PM CDT STRM Blood (Blood, Venous) 08/30/2023 9:50 PM CDT 08/30/2023 9:58 PM CDT Shannan Correa D.O., M.H.A. LAB BLOOD BANK TEST ORDERABLES Performing Organization Address [facility] Co de Phone Number [facility] [address] [place] [address], [facility] STRM [facility] [address] [place] [address] * Lactate (08/30/2023 9:50 PM CDT) [facility] Lactate, P 1.8 0.5 - 2.2 mmol/L 08/30/2023 10:09 PM CDT STMA Blood (Blood, Venous) 08/30/2023 9:50 PM CDT 08/30/2023 9:55 PM CDT Shannan Correa D.O., M.H.A. LAB BLOOD NON ADD-ON [facility] [address] [place] [address], [facility] STMA [facility] [address] [place] [address] * (ABNORMAL) Basic Metabolic Panel (08/30/2023 9:49 [...] Correa D.O., M.H.A. LAB BLOOD ADD- ON [facility] [address] [place] [address], [facility] STMA [facility] [address] [place] [address] * (ABNORMAL) CBC with Differential, Blood (08/30/2023 [...] Correa D.O., M.H.A. LAB BLOOD ADD- ON [facility] [address] [place] [address], [place] STMA [facility] [address] [place] [address] [facility] [address] [place] [address] * DX Chest AP or PA and [...] CDT) Ventricular Rate ECG/Min 145 BPM MUSE LA Interval 136 ms MUSE QRSD Interval 64 ms MUSE QT Interval 260 ms MUSE QTC Interval 403 ms MUSE P Stem 44 degrees MUSE R Stem 9 degrees MUSE T Wave Stem -76 degrees MUSE 08/30/2023 7:44 PM CDT [...] anti-Xa: 6 hours after Heparin resumed, Anti-Xa 0.91-1.5: Hold Infusion: Stop infusion for 2 hours, Anti-Xa 0.91-1.5: Adjust Dose (Units/kg/hr): -4, Anti-Xa 0.91-1.5: Repeat anti-Xa: 6 hours after Heparin resumed [...] anti-Xa: 6 hours after Heparin resumed, Anti-Xa 0.91-1.5: Hold Infusion: Stop infusion for 2 hours, Anti-Xa 0.91-1.5: Adjust Dose (Units/kg/hr) by: -4, Anti-Xa 0.91-1.5: Repeat anti-Xa: 6 hours after Heparin resumed [...] give total of 40 mEq Dissolve per zmt operator recommendations. Do NOT chew or swallow [...] Tayler Espinoza R.N.) 0911 (Given - Provider: Vansesa Leo R.N.) clopidogreL tablet 75 mg (PLAVIX) [...] give total of 40 mEq Dissolve per zmt operator recommendations. Do NOT chew or swallow [...] Gaye Dillard R.N. - Reason: Patient/family refused) 812 (Given - Provider: Tayler Espinoza R.N.)2047 (Given [...] met)2048 (Given - Provider: Sarah Quintana R.N.) 09 (Given - Provider: Vanessa Leo R.N.) Continuous [...] anti-Xa: 6 hours after Heparin resumed, Anti-Xa 0.91-1.5: Hold Infusion: Stop infusion for 2 hours, Anti-Xa 0.91-1.5: Adjust Dose (Units/kg/hr): -4, Anti-Xa 0.91-1.5: Repeat anti-Xa: 6 hours after Heparin resumed 0417 (Rate/Dose Change - Provider: Brittni Howe R.N.)0722 (New Bag - Provider: Sarah Morgan R.N. [...] anti-Xa: 6 hours after Heparin resumed, Anti-Xa 0.91-1.5: Hold Infusion: Stop infusion for 2 hours, Anti-Xa 0.91-1.5: Adjust Dose (Units/kg/hr) by: -4, Anti-Xa 0.91-1.5: Repeat anti-Xa: 6 hours after Heparin resumed [...] (Units/kg): 0 0850 (Given - Provider: Joy L Kalla, R.N.) naloxone injection 0.2 mg (NARCAN) 0.2 [...] 2256 documented in this encounter Care Teams Dynamics Ax Consultant Relationship Specialty Start Date End Date Elsewhere, Pcp PCP - General Internal Medicine 08/13/23 documented as of this encounter
--- OUTSIDE RECORDS SUMMARY | 2023-09-23 12:46 | XMS_ITS | Encounter Summary ---
Author Organization [facility] Address [address] [place] [address] Care Team Providers Care Table Inspector Name Role Phone Elsewhere, Pcp Primary Care Provider Unavailabl e Encounter Details Date Type Department Care Team (Late st Contact Info) Description 08/31/2023 12:34 PM CDT Anesthesia Event RST ROMB MAIN OR [address] [place] [phone] Joe Stoll M.D. [address] [place] [phone] Benjamin Williamson APRN, BALANCE BRIDGE ASSEMBLER [address] [place] [phone] Anesthesia Record Procedure Summary Procedure Name Responsible [...] Wound healed 08/22/23 0825 by Kirstin Valdes R.N. 09/09/23 1321 by Jazmine Benítez RNarendra, C.W.C.N. Peripheral IV Placement Date: 08/30/23; Placement Time: 2048; Catheter Size: 20 G; Orientation: Right; Location: Hand; Insertion Attempts: 1; Removal Date: 09/05/23; Removal Time: 07; Removal Reason: Patient discharged 08/30/232048 by Chelsea Argueta R.N. 09/05/23 0700 by Vanessa Leo R.N. Supraglottic Airway Placement Date: 08/31/23; Placement Time: 1243 (created via procedure documentation); Mask Ventilation: Not attempted; Brand: Unique; Size: 5; Removal Date: 08/31/23; Removal Time: 1402 08/31/23 1243 by Benjamin Williamson APRN, GAVIN 08/31/23 1402 by Benjamin Williamson APRN, BALANCE BRIDGE ASSEMBLER Indwelling Urinary Catheter Placement Date: 08/31/23; Placement [...] Mehta R.N. 09/03/23 1103 by Sarah Morgan RNarendra documented in this encounter Social History Tobacco Use Types Packs/Day Years Used Date Smoking Tobacco: Never Smokeless Tobacco: Never [facility] Utilities Answer Date Recorded In the past 12 months has [facility] [employer], gas, oil, or water [employer] threatened to shut off services in your [...] your living situation today? I have a [facility] place to live 08/13/2023 Sex and Gender Information Value Date Recorded Sex Assigned at Not on file Gender Identity Not on file Sexual Orientation Not on file documented as of this encounter OR Notes * Anesthesia Postprocedure Evaluation - Joe Stoll M.D. - 08/31/2023 5:27 PM CDT Patient: Kalen Vega Procedure Summary Date: 08/31/23 Room / Location: [place] [id number] / [facility] in [place], [place] Anesthesia Start: 1234 Anesthesia Stop: 1420 Procedures: CYSTOSCOPY EVACUATION CLOTS (Bladder) CYSTOSCOPY CYSTOGRAM (Bladder) Diagnosis: Hematuria (Hematuria [R31.9]) Providers: Mayur Alvarez M.D. Responsible Provider: Jeo Stoll M.D. Anesthesia Type: general ASA Status: [...] Hematuria [R31.9] Pre-op diagnosis: Hematuria [R31.9] Location: [place] [address] / [facility] in [place], [place] Providers: Alvarez, R. Rivero, M.D. Pertinent components of the patient's history [...] patient / legal guardian, or through an lead clinical research coordinator; patient evaluated and approved for anesthesia / [...] CDT Procedure visit Department of Urology in [place], [place] [address] [place] [phone] Paula eHrnandez M.D. [address] [place] [address] documented as of this encounter Procedures Procedure [...] mg documented in this encounter Care Teams Table Inspector Relationship Specialty Start Date End Date Elsewhere, Pcp PCP - General Internal Medicine 08/13/23 documented as of this encounter
--- OUTSIDE RECORDS SUMMARY | 2023-09-23 12:46 | XMS_ITS | Encounter Summary ---
Author Organization [facility] Address [address] [place] [address] Care Team Providers Care Bureau Director Name Role Phone Elsewhere, Pcp Primary Care Provider Unavailabl e Encounter Details Date Type Department Care Team (Late st Contact Info) Description 09/09/2023 12:10 PM CDT Ancillary Procedure Department of Nursing Social History Tobacco Use Types Packs/Day Years Used Date Smoking Tobacco: Never Smokeless Tobacco: Never [facility] Utilities Answer Date Recorded In the past [...] your living situation today? I have a [facility] place to live 09/09/2023 Sex and Gender Information Value Date Recorded Sex Assigned at Not on file Gender Identity Not on file Sexual Orientation Not on file documented as of this encounter Plan of Treatment Upcoming Encounters Date Type Department Care Team (Late st Contact Info) Description 10/14/2023 1:00 PM CDT Procedure visit Department of Urology in [place], [place] [address] [place] [address] Paula Hernandez M.D. [address] [place] [address] documented as of this encounter Procedures Procedure [...] on filedocumented in this encounter Care Teams Bureau Director Relationship Specialty Start Date End Date Elsewhere, Pcp PCP - General Internal Medicine 08/13/23 documented as of this encounter
--- OUTSIDE RECORDS SUMMARY | 2023-09-23 12:46 | XMS_ITS | Encounter Summary ---
Author Organization [facility] Address [address] [place] [address] Care Team Providers Care Wage And Salary Administrator Name Role Phone Elsewhere, Pcp Primary Care Provider Unavailabl e Encounter Details Date Type Department Care Team (Late st Contact Info) Description 08/31/2023 12:25 PM CDT Ancillary Procedure Department of General Surgery Social History Tobacco Use Types Packs/Day Years Used Date Smoking Tobacco: Never Smokeless Tobacco: Never [facility] Utilities Answer Date Recorded In the past [...] your living situation today? I have a [facility] place to live 08/13/2023 Sex and Gender Information Value Date Recorded Sex Assigned at Not on file Gender Identity Not on file Sexual Orientation Not on file documented as of this encounter Plan of Treatment Upcoming Encounters Date Type Department Care Team (Late st Contact Info) Description 10/14/2023 1:00 PM CDT Procedure visit Department of Urology in [place], [place] [address] [place] [address] Paula Hernandez M.D. [address] [place] [address] documented as of this encounter Procedures Procedure [...] on filedocumented in this encounter Care Teams Wage And Salary Administrator Relationship Specialty Start Date End Date Elsewhere, Pcp PCP - General Internal Medicine 08/13/23 documented as of this encounter
--- OUTSIDE RECORDS SUMMARY | 2023-09-23 12:46 | XMS_ITS | Encounter Summary ---
Author Organization [facility] Address [address] [place] [address] Care Team Providers Care Deck Engine Operator Name Role Phone Elsewhere, Pcp Primary Care Provider Unavailabl e Encounter Details Date Type Department Care Team (Late st Contact Info) Description 09/09/2023 Documentation Department of Urology in [place], [place] [address] [place] [address] Ko Victoria M.D. [address] [place] [address] Social History Tobacco Use Types Packs/Day Years Used Date Smoking Tobacco: Never Smokeless Tobacco: Never [facility] Utilities Answer Date Recorded In the past [address] [facility] [employer], gas, oil, or water [employer] threatened to shut off services in [...] have a [facility] place to live 09/09/2023 Sex and [...] Upcoming Encounters Date Type Department Care Team ([facility] Contact Info) Description 10/14/2023 1:00 PM CDT Procedure visit Department of Urology in [place], [place] [address] [place] [address] Paula Hernandez M.D. [address] [place] [address] documented as of this encounter Visit Diagnoses Not on filedocumented in this encounter Care Teams Deck Engine Operator Relationship Specialty Start Date End Date Elsewhere, Pcp PCP - General Internal Medicine 08/13/23 documented as of this encounter
--- OUTSIDE RECORDS SUMMARY | 2023-09-23 12:46 | XMS_ITS | Encounter Summary ---
Author Organization [facility] Address [address] [place] [address] Care Team Providers Care Legal Cashier Name Role Phone Elsewhere, Pcp Primary Care Provider Unavailabl e Encounter Details Date Type Department Care Team (Late st Contact Info) Description 09/06/2023 Orders Only Section of Hyperbaric Medicine in [place], [place] [address] [place] [address] Kira Ferraro APRN, C.N.P., M.S.N. [address] [place] [address] Social History Tobacco Use Types Packs/Day Years Used Date Smoking Tobacco: Never Smokeless Tobacco: Never [facility] Utilities Answer Date Recorded In the past 12 months has [facility] [employer], gas, oil, or water [facility] threatened to shut off services in your [...] have a [facility] place to live 09/09/2023 Sex and Gender Information Value Date Recorded Sex Assigned at Not on file Gender Identity Not on file Sexual Orientation Not on file documented as of this encounter Plan of Treatment Upcoming Encounters Date Type Department Care Team (Late st Contact Info) Description 10/14/2023 1:00 PM CDT Procedure visit Department of Urology in [place], [place] [address] [place] [address] Paula Hernandez M.D. 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
--- OUTSIDE RECORDS SUMMARY | 2023-09-23 12:46 | XMS_ITS | Encounter Summary ---
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 [address] [place] [address] [facility] Referral ID Status Reason Start Date Expiration Date V isits Requested Visits Authorized [id number] Authorized 09/15/2023 09/14/2024 1 1 * Outpatient (Routine) - Authorized Specialty Diagnoses / Procedures Referred By Leyla rosenthal Referred To Contact Radiology Diagnoses Hematuria Procedures IR Nephrostomy Tube Exchange Left Paula Hernandez M.D. [address] [place] [address] [facility] Referral ID Status Reason Start Date Expiration Date V isits Requested Visits Authorized [id number] Authorized 09/15/2023 09/14/2024 1 1 Reason for Visit * Reason Comments Blood in Urine Encounter Details Date Type Department Care Team (Latest Contact Info) Description 09/09/2023 7:24 AM CDT - 09/15/2023 5:28 PM CDT Hospital Encounter [facility], [facility], [facility], Sixth Floor [address] [place] [phone] Gerri Merrill M.D., Ph.D. [address] [place] [phone] Sumit Holbrook M.D. [address] [place] [address] Hematuria (Primary Dx) Discharge Disposition: Home or Self Care Social History Tobacco Use Types Packs/Day Years Used Date Smoking Tobacco: Never Smokeless Tobacco: Never [facility] [employer] Answer Date Recorded In the past 12 months has e [employer], gas, oil, or water [employer] threatened to shut off services in your [...] [facility] 09/09/2023 Sex and Gender [...] AM CDT DISCHARGE SUMMARY BRIEF OVERVIEW Hospital: [facility] Discharge Provider: Sumit Holbrook M.D. Primary Team: [facility] Urology Surgery - Chief Helga Rojas [...] IP CONSULT TO UROLOGY IP CONSULT TO CONDEMNATION ENGINEER WOUND CARE IP CONSULT TO HYPERBARIC MEDICINE IP CONSULT TO VASCULAR MEDICINE IP CONSULT TO DIETITIAN CONDITION AT DISCHARGE stable Discharge instructions were provided to the patient and caregiver(s). documented in this encounter Discharge Instructions * Discharge Instructions* Yasmine Loco - 09/09/2023 12:27 PM CDT You were discharged from the [facility] Urology Surgery - Chief A - Bob Service. Please identify this service name if you call with questions after hospitalization. * Attachments The following attachments cannot be sent through Care Everywhere. * Sulfamethoxazole/Trimethoprim (By mouth) (Palestinian) documented in this encounter Medications at Time [...] home. Social Work also sent referral to [facility] and reached out to Service [...] needs. Shorty Sun, M.S.W. 09/15/23 * Shannan Qiu, SHANNAN - 09/15/2023 10:03 AM CDT Clinical Nutrition: [...] reviewed. GI Function: Last BM Date: 09/11/23, Newton Stool Chart: Type 5: Soft blobs with [...] 86.8 kg (09/09/2023) Current Weight: 84.5 kg Clark Body Weight (Calculated) : 75.3 kg BMI [...] or 5%. Estimated Needs: Total Calorie Needs: 0227-1861 calories/day Method to Estimate Energy Needs: kcal/kg [...] about patient's nutritional care please contact pager [phone] on weekdays 07:30-16:00 or [phone] on weekends/holidays ([facility] * Clara Luu APRN, C.N.P., D.N.P. - [...] % Drains Intake/Output Last 24 Hours: Date 09/13/23 07 - 09/14/2365809/14/23 07 - 09/15/23 06 Shift [id number] 4209-4114 7189-3088 24 Hour Total 7333-3161 0979-0638 5388-2835 24 Hour Total INTAKE Other 30 60 [...] please contact Vascular and Interventional Radiology DEBBI ([phone]). Anticoagulation: A percutaneous nephrostomy tube is considered [...] care. Please feel free to page the [facility] Inpatient Consult Service at [phone] or the on-call resident at [phone] after 5 PM and on weekends with [...] . Neph tube clear yellow urine. I/O ([id number]): 1.9 L, 1.1 L from the neph [...] questions or concerns. Pager during business hours: [phone] Pager after hours: [phone] * Paula Hernandez M.D. - 09/13/2023 6:05 [...] in place draining clear yellow urine I/O ([id number]): Adequate urine output 2.7 L/248 1 L [...] questions or concerns. Pager during business hours: [phone] Pager after hours: [phone] * Raya Meza, DJonah, R.Ph., [facility] - 09/12/2023 7:44 AM CDT Images from [...] follow for medicationuse optimization Pharm. YanciDJonah, R.Ph., [facility] Addendum: Heparin will be stopped on 09/13/23 [...] CHIEF SERVICE PROGRESS NOTE SUBJECTIVE Kalen Srinivasan Gudeliatate seen by the team during morning rounds. [...] in place draining clear yellow urine I/O ([id number]): CBI paused for obs Labs: Hb: Hemoglobin [...] Date/Time Bacterial Culture, Aerobic + Susceptibility, Urine [[id number]] (Abnormal) (Susceptibility) Collected: 09/09/23 1128 Lab Status: [...] Susceptible Bacterial Culture, Aerobic + Susceptibility, Urine [[id number]] Collected: 09/03/23 1050 Lab Status: Final result Specimen: Urine, Indwelling Catheter Updated: 09/04/23 6544 Urine Culture No growth after 1 day [...] questions or concerns. Pager during business hours: [phone] Pager after hours: [phone] * Js Yang M.D. - 09/11/2023 9:18 [...] [place] [phone] during business hours orat [phone] after hours. * Portillo Crespo Pharm.D., R.Ph., [...] Crespo Pharm.D., R.Ph., BCPS * Favio Carmichael PharmDayday, R.Ph., BCPS - 09/10/2023 11:27 AM CDT [...] at 0000 Mayur Collier PharmD, LUCERO, BCPS, [facility] Pager [phone] * Js Yang M.D. - 09/10/2023 9:50 [...] Service [place] [phone] during business hours orat [phone] after hours. * Quin Harrell Pharm.D., R.Ph., [...] aPTT guidance document in [employer]. Quin Harrell PharmPerla., R.Ph., BCPS * Jazmine Benítez RNarendra, C.W.C.N. - 09/09/2023 1:16 PM CDT [facility] Wound RN consulted to assess Kalen [...] Pre-Existing Unstageable Pressure Injury over Scar Tissue [facility] RN was consulted to assess pre-existing [...] None Unable to Measure N *Wound Bed Open;[place];Yellow;Fibrin/Slough Tissue Exposed None Odor None *Exudate Amount Small Drainage Description Serous;Perez Janiya-wound Assessment Intact;Fragile;[place];Purple;Maceration;White Periwound Treatment Liquid skin protectant (SurePrep) *Primary Dressing Gelling fiber/Hydrofiber (Aquacel Ag) *Primary Dressing Frequency of Change Daily & PRN *Secondary Dressing Foam (Sacral Mepilex Border) *Secondary Dressing Frequency of Change Daily & PRN Lengthy Treatment > 30 minutes > 30 minutes Ongoing management Nursing;Wound/recruiting assistant Partial head to toe skin assessment completed [...] 09/09/23 1:16 PM CDT * Raya Meza, Pharm.D., R.Ph., [facility] - 09/09/2023 11:17 AM CDT Images from [...] continue to follow for medicationuse optimization Stephanie Meza, PharmJonahD., R.Ph., BCPS Admission Medication History Note Adherence issues: No concerns Medication list source: Patient, son, recent filling Hx Medication related information: Per pt, he takes amlodipine, mirabegron daily in the afternoon, around 1 to 2 pm-tucker, for no specific reasons Prior to Admission Medications Med List Status: Pharmacy Complete Set By: Raya Meza PharmDayday, R.Ph., BCPS at 09/09/2023 11:16 AM Taking? Last Dose [...] follow Paula Hernandez M.D. Urology PGY-2 Pager #[phone] Please page Chief Urology at [phone] from 7 AM - 5 PM or at [phone] after hours with any questions/concerns. documented in [...] reviewed. GI Function: Last BM Date: 09/11/23, Newton Stool Chart: Type 5: Soft blobs with [...] 86.8 kg (09/09/2023) Current Weight: 84.5 kg Clark Body Weight (Calculated) : 75.3 kg BMI [...] or 5%. Estimated Needs: Total Calorie Needs: 6510-0241 calories/day Method to Estimate Energy Needs: kcal/kg [...] about patient's nutritional care please contact pager [phone] on weekdays 07:30-16:00 or [phone] on weekends/holidays ([facility] [place] * Clara Luu APRN, C.N.P., D.N.P. - 09/12/2023 11:59 AM CDTAssociated Order(s): Interventional Radiology Consult Vascular/Interventional Radiology IP Consultation Note SUBJECTIVE Interventional Radiology Consult Referring Provider: Paula Hernandez M.D. REASON FOR CONSULT Left nephrostomy tube placement HISTORY OF PRESENT ILLNESS Mr. Kalen Vgea is a 83 y.o. male with past [...] admitted for CBI. He was transferred to [facility] after difficultywith irrigating his Jno and CT cystogram identified a bladder dome [...] and recommendations. Please feel free to page [phone] [phone] after 5 PM and on weekends with additional questions. VIR will continue to follow * Alessandra Aguero D.O. - 09/09/2023 5:26 PM CDTAssociated Order(s): IP CONSULT TO VASCULAR MEDICINE VASCULAR MEDICINE CONSULT NOTE Requesting Physician: Gerri Merrill M.D.,* SUBJECTIVE REASON FOR CONSULT: assistance with AC management, patient on plavix and eliquis admitted with refractory hematuria requing CBI. Recommend heparin drip? thanks [facility] [phone] HISTORY OF PRESENT ILLNESS Mr. 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 Victoria, the chief urology resident application support analyst. Please page chief Urology Service [place] [phone] [place] [phone] after hours. Paula Hernandez M.D. 09/09/23 9:10 [...] this encounter Nursing Notes * Brittanie Lewis R.N. - 09/15/2023 5:18 PM CDT Shift Goals: Clinical Goals for the Shift: Pt will report adequate pain control during shift Identify possible barriers to meeting goals/advancing plan of care: none End of Shift Summary: Pt DC'd to [facility] with family. Patient educated on nephrostomy [...] including history, physical exam, orders, and plan. Shankaree with the note of the resident. Patient [...] and right ureteral stent placement with Dr. Brock. He returns to the emergency department 4 [...] Urology consulted after discussion with the catheter fuel technician who advised that for this patient they are required to get approval from Urologyprior to placing catheter. ED Course as of 09/09/23 0958 TueSeptember 09, 2023 0822 Hemoglobin(!): 8.9 Down from 9.6 one-week ago 0822 Leukocytes(!): 14.5 New leukocytosis with neutrophilia 0822 INR: 1.1 0823 Discussed with the catheter fuel technician. Bladder scan showed 125 mL. There [...] Care Handoff Type of Handoff Admission handoff Jfefery Church M.D. Resident 09/09/23 0958 documented in [...] CDT Procedure visit Department of Urology in [place], [place] [address] [place] [address] Paula Hernandez M.D. [address] [place] [address] Pending Results Name Type Priority Associated Diagnoses Date /Time Prepare Red Blood Cells, 2 Units Blood Bank Routine 09/09/2023 8:03 AM CDT Bacterial Culture, Anaerobic + Susceptibility Microbiology Timed 09/13/2023 2:17 PM CDT Fungal Culture, Routine Microbiology Timed 09/13/2023 2:17 PM CDT Scheduled Orders Name Type Priority Associated Diagnoses Order Schedule Gram Stain Microbiology STAT STAT for 1 Occurrences starting 09/09/2023 until 09/09/2023 IR Nephrostomy Tube Exchange Left Imaging RAD [...] GRAM STAIN Timed 09/13/2023 2:17 PM CDT FUNGAL CULTURE, ROUTINE Timed 09/13/2023 [...] CBC without Differential (09/15/2023 3:37 AM CDT) [facility] Hemoglobin 9.8(L) 13.2 - 16.6 g/dL [...] Hernandez M.D. LAB BLOOD ADD-ON [facility] [address] [place] [address], [facility] [address] [place] [address] * Heparin Anti-Xa Assay (09/14/2023 3:19 AM CDT) [facility] Heparin Anti-Xa, P 0.11 IU/mL 2023 [...] Sumit Holbrook M.D. LAB BLOOD NON ADD-ON [address] [address], [facility] [place] [place] [address] * (ABNORMAL) CBC without Differential (09/14/2023 3:19 AM CDT) [facility] Hemoglobin 10.1(L) 13.2 - 16.6 g/dL [...] Paula Hernandez M.D. LAB BLOOD ADD-ON [facility] [address] [place] [address], [facility] [address] [place] [address] * IR Nephrostomy Tube Placement Left (09/13/2023 2:20 PM CDT) Anatomical Region Laterality Modality Genito Urinary, Vascular Int erventional RST LOS, Vascular Interventional ARZ LOS, Vascular Interventional FLA LOS Left X-Ray Angiography Impressions 09/13/2023 2:33 PM CDT Left 10 Gabonese percutaneous nephrostomy tube placement. EP Narrative 09/13/2023 [...] tract was further dilated and a 10 Gabonese nephrostomy tube was placed with loop formed [...] sedation timewas: 9 minutes. IMPRESSION: Left 10 Gabonese percutaneous nephrostomy tube placement. EP Latisha Whitehead M.D. IMG IR PROCEDURE S * Gram Stain (09/13/2023 2:17 PM CDT) Pathologist [facility] Gram Stain No organisms seen. White blood cells, Rare 09/13/2023 9:02 PM CDT DT Fluid (Kidney, Left) 09/13/2023 2:17 PM CDT 09/13/2023 3:56 PM CDT Comment:Specimen Source Site : Fluid Latisha Whitehead M.D. LAB MICROBIOLOGY - GENERAL ORDERABLES Performing Organization Address [facility] Co de Phone Number [facility] [address] [place] [address] * Bacterial Culture, Aerobic + Susceptibility (09/13/2023 2:17 PM CDT) [facility] Bacterial Culture, Aerobic + Susc No growth after 5 days of incubation. 09/18/2023 12:35 PM CDT DT Fluid (Kidney, Left) 09/13/2023 2:17 PM CDT 09/13/2023 3:56 PM CDT Comment:Specimen Source Site : Fluid Latisha Whitehead M.D. LAB MICROBIOLOGY - GENERAL ORDERABLES Performing Organization Address [facility] Co de Phone Number [facility] [address] [place] [address], [place] [address] * (ABNORMAL) CBC without Differential (09/13/2023 5:57 AM CDT) Hemoglobin 9.3(L) 13.2 - 16.6 g/dL 09/13/2023 [...] - 9.6 x10(9)/L 09/13/2023 7:04 AM CDT DTL Blood (Blood, Venous) 09/13/2023 5:57 AM CDT 09/13/2023 6:54 AM CDT Ko Victoria M.D. LAB BLOOD ADD-ON [facility] [address] [place] [address], [facility] [address] [place] [address] * Heparin Anti-Xa Assay (09/13/2023 5:56 AM CDT) Heparin Anti-Xa, P 0.10 IU/mL 2023 7:14 [...] Holbrook M.D. LAB BLOOD NON ADD-ON [facility] [address] [place], [place] [address] [place] [address] * APTT (Activated Partial Thromboplastin Time) (09/13/2023 5:56 AM CDT) [facility] Activated Partial Thrombopl Time, P 35 25 - 37 sec 09/13/2023 7:14 AM CDT DTL Blood (Blood, Venous) 09/13/2023 5:56 AM CDT 09/13/2023 6:53 AM CDT Sumit Holbrook M.D. LAB BLOOD ADD-ON Performing Organization Address City/[facility]/ZIP Co de Phone Number [facility] [address] [place] [address], [place] [address] * (ABNORMAL) Basic Metabolic Panel (09/13/2023 5:56 AM CDT) Pathologist [facility] Potassium, S 3.7 3.6 - 5.2 mmol/L [...] Paula Hernandez M.D. LAB BLOOD ADD-ON [facility] [address] [place] [address], [facility] [address] [place] [address] * NM Kidney DMSA (09/12/2023 12:21 PM [...] reduced radiotracer uptake asdescribed. Js Yang M.D. [facility] PROCEDURES * Transfuse Red Blood Cells : [...] CBC without Differential (09/12/2023 3:42 AM CDT) Hemoglobin 7.2(L) 13.2 - 16.6 g/dL 09/12/2023 [...] M.D. LAB BLOOD ADD-ON Performing Organization Address [facility] Co de Phone Number [facility] [address] [place] [address] * (ABNORMAL) APTT (Activated Partial Thromboplastin Time) (09/12/2023 3:42 AM CDT) [facility] Activated Partial Thrombopl Time, P 49(H) 25 - 37 sec 09/12/2023 4:35 AM CDT DTL Blood (Blood, Venous) 09/12/2023 3:42 AM CDT 09/12/2023 4:00 AM CDT Gerri Merrill M.D., Ph.D. LAB BLOOD A DD-ON Performing Organization Address [facility] Co de Phone Number [facility] [address] [place] [address] * (ABNORMAL) Basic Metabolic Panel (09/11/2023 8:23 AM CDT) Potassium, S 3.5(L) 3.6 - 5.2 [...] CDT Js Yang M.D. LAB BLOOD ADD-ON [facility] [address] [place] [address], [facility] [address] [place] [address] * (ABNORMAL) CBC without Differential (09/11/2023 8:23 AM CDT) Hemoglobin 8.2(L) 13.2 - 16.6 g/dL 09/11/2023 [...] Organization Address City/[facility]/[place] [address] * (ABNORMAL) APTT (Activated Partial Thromboplastin Time) (09/10/2023 11:42 PM CDT) Pathologist [facility] Activated Partial Thrombopl Time, P 47(H) 25 - 37 sec 09/11/2023 2:05 AM CDT DTL Blood (Blood, Venous) 09/10/2023 11:42 PM CDT 09/11/2023 2:05 AM CDT Gerri Merrill M.D., Ph.D. LAB BLOOD A DD-ON Performing Organization Address City/[facility]/[place] [address] * US Urinary Bladder (09/10/2023 8:41 PM [...] Merrill M.D., Ph.D. LAB BLOOD A DD-ON [facility] [address] [place] [address], [facility] [address] [place] [address] * (ABNORMAL) APTT (Activated Partial Thromboplastin Time) (09/10/2023 10:11 AM CDT) Activated Partial Thrombopl Time, P 63(H) 25 - 37 sec 09/10/2023 10:57 AM CDT DTL Blood (Blood, Venous) 09/10/2023 10:11 AM CDT 09/10/2023 10:40 AM CDT Gerri Merrill M.D., Ph.D. LAB BLOOD A DD-ON Performing Organization Address [facility] de Phone Number [facility] [address] [place], [place] [phone] [place] [address] DTL [facility] 200 [place] [address] * (ABNORMAL) CBC without Differential (09/10/2023 3:27 AM CDT) Pathologist [facility] Hemoglobin 8.1(L) 13.2 - 16.6 g/dL 09/10/2023 [...] M.D. LAB BLOOD ADD-ON Performing Organization Address [facility] Co de Phone Number [facility] [address] [place], [place] [phone] [place] [address] DTL [facility] [address] [place] [address] * (ABNORMAL) APTT (Activated Partial Thromboplastin Time) (09/10/2023 12:06 AM CDT) Activated Partial Thrombopl Time, P 57(H) 25 - 37 sec 09/10/2023 1:05 AM CDT DTL Blood (Blood, Venous) 09/10/2023 12:06 AM CDT 09/10/2023 12:33 AM CDT Gerri Merrill M.D., Ph.D. LAB BLOOD A DD-ON Performing Organization Address City/[facility]/ZIP Co de Phone Number [facility] [address] [place], [place] [phone] [place] [address] [facility] [address] [place] [address] * APTT (Activated Partial Thromboplastin Time) (09/09/2023 5:08 PM CDT) Pathologist [facility] Activated Partial Thrombopl Time, P 31 25 - 37 sec 09/09/2023 5:24 PM CDT STMA Blood (Blood, Venous) 09/09/2023 5:08 PM CDT 09/09/2023 5:12 PM CDT Ko Victoria M.D. LAB BLOOD ADD-ON Performing Organization Address City/[facility]/ZIP Co de Phone Number [facility] [address] [place] [address], [facility] [address] [place] [address] * (ABNORMAL) Dipstick, Urine (09/09/2023 11:28 AM CDT) Pathologist [facility] Hemoglobin, QL, U Large(A) Negative 09/09/2023 12:03 PM CDT DTL Leukocyte Esterase, U Large(A) Negative 09/09/2023 12:03 PM CDT DTL Nitrite, U Negative Negative 09/09/2023 12:03 PM CDT DTL Ketone, U 40(A) Negative mg/dL 09/09/2023 12:03 PM CDT DTL Glucose, U 70(A) Negative mg/dL 09/09/2023 12:03 PM CDT DT Urine 09/09/2023 11:2 8 AM CDT 09/09/2023 11:58 AM CDT Jeffery Church M.D. LAB URINE ORDERA BLES [facility] [address] [place] [address], [facility] [address] [place] [address] * pH, Random, Urine (09/09/2023 11:28 AM CDT) pH, Random, U 6.3 4.5 - 8.0 09/09/2023 12:19 PM CDT DT Urine 09/09/2023 11:2 8 AM CDT 09/09/2023 11:58 AM CDT Jeffery Church M.D. LAB URINE ORDERA BLES Performing Organization Address City/[facility]/ZIP Co de Phone Number [facility] [address] [place] [address], [facility] [address] [place] [address] * Osmolality, Urine (09/09/2023 11:28 AM CDT) Osmolality, U 380 150 - 1150 mOsm/kg 09/09/2023 12:19 PM CDT DT Urine 09/09/2023 11:2 8 AM CDT 09/09/2023 11:58 AM CDT Jeffery Church M.D. LAB URINE ORDERA BLES [facility] [address] [place] [address], [facility] [address] [place] [address] * (ABNORMAL) Microscopic Manual (09/09/2023 11:28 AM [...] LAB URINE ORDERA SHELLY Performing Organization Address City/[facility]/ZIP Co de Phone Number [facility] [address] [facility] [address] [place] [address] * (ABNORMAL) Gram Stain, Urine (09/09/2023 11:28 AM CDT) Pathologist [facility] Source Urine, Urine, Straight Catheter 09/09/2023 11:58 AM CDT DTL Gram Stain, U Positive(A) Negative 09/09/2023 12:16 PM CDT DTL Comment: Few Gram-negative bacilli ? Yeast Urine 09/09/2023 11:2 8 AM CDT 09/09/2023 11:58 AM CDT Jeffery Church M.D. LAB URINE ORDERA BLEBryon Performing Organization Address City/[facility]/ZIP Co de Phone Number [facility] [address] [place] [address] * (ABNORMAL) Bacterial Culture, Aerobic + Susceptibility, Urine (09/09/2023 11:28 AM CDT) [facility] Urine Culture ENTEROBACTER CLOACAE COMPLEX >100,000 cfu/mL [...] MICROBIOLOGY - GENERAL ORDERABLES Performing Organization Address [facility] Co de Phone Number [facility] [address] [place] [address], [facility] [address] [place] [address] * (ABNORMAL) Urinalysis, with Microscopic: Urine, Straight [...] 09/09/2023 1:02 PM CDT DTL Predicted Range 2480-34083 mg/24 h 09/09/2023 1:02 PM CDT DTL Comment Micro done on <2.5 mL 09/09/2023 12:27 PM CDT DTL Urine (Urine, Straight Catheter) 09/09/2023 11:28 AM CDT 09/09/2023 11:58 AM CDT Jeffery Church M.D. LAB URINE ORDERA BLES Performing Organization Address City/[facility]/ZIP Co de Phone Number [facility] [address] [place] [address], [facility] [address] [place] [address] * US Kidneys Bilateral with Bladder (09/09/2023 [...] CDT Jeffery Church M.D. LAB BLOOD ADD-ON [address] [address], [place] [address] * (ABNORMAL) CBC with Differential, Blood (09/09/2023 8:04 AM CDT) [facility] Hemoglobin 8.9(L) 13.2 - 16.6 g/dL 09/09/2023 [...] Jeffery Church M.D. LAB BLOOD ADD-ON [facility] [address] [place] [address], [facility] STMA [facility] [address] [place] [address] * (ABNORMAL) Basic Metabolic Panel (09/09/2023 8:04 AM CDT) Potassium, P 3.4(L) 3.6 - 5.2 mmol/L [...] Organization Address City/[facility]/ZIP Co de Phone Number [facility] [address] [place], [place] [id number] [place] [address] [address] * Type and Screen (with Reflex Antibody [...] BANK T EST ORDERABLES Performing Organization Address [facility]/ZIP Co de Phone Number [facility] [address] [place] [address], [facility] [address] [place] [address] documented in this encounter Visit Diagnoses Diagnosis [...] 09/13/2023 9:12 PM CDT 12 Units/kg/hr 10.4 mL/h r iohexoL 300 mg iodine/mL solution (OMNIPAQUE) As [...] min PRN, sedation, RASS -1, Starting on Tu09/13/23 at 1402, For 3 hours, Intraprocedure (RAD), May repeat every 2 minutes for a maximum of 5 mg. Do not give if respiratory rate is less than 8 breaths/minute. Given 09/13/2023 2:12 PM CDT 0.5 mg midazolam (PF) injection 1 mg (VERSED) 1 mg, intravenous, Every 2 min PRN, sedation, RASS 0, Starting on Tu09/13/23 at 1402, For 3 hours, Intraprocedure (RAD), [...] 0922 (Given - Provider: Brittanie Lewis R.N.) 0904 (Given - Provider: Brittanie Lewis R.N.) enzalutamide capsule 120 mg (XTANDI) 120 mg, oral, Daily, First dose on Tue09/10/23 at 0900, HAZARDOUS - Handle with care. Swallow whole. Do NOT crush, chew or open capsule. 1014 (Given - Provider: Leonardo Clark R.N. - Comment: With Rodrigo MCCULLOUGH) 0922 (Given - Provider: Brittanie Lewis R.N.) 0904 (Given - Provider: Brittanie Lewis R.N.) metoprolol succinate 24 hr tablet 50 mg (TOPROL-XL) 50 mg, oral, Daily at bedtime, First dose on Tue09/09/23 at 2100, Do NOT crush or chew. Tablet may be split on score if needed. 2105 (Given - Provider: Lilia Whitney R.N.) 2101 (Given - Provider: Brittanie Lewis R.N.) rivaroxaban tablet 10 mg (XARELTO) 10 mg, oral, Every morning, First dose on Tue09/14/23 at 0900 921 (Given - Provider: Brittanie Lewis R.N.) [...] (Given - Provider: Lilia Whitney R.N.) 921 (Not Given - Provider: Brittanie Lewis R.N. [...] catheter 1014 (Given - Provider: Leonardo Clark R.N.)210 (Given - Provider: Lilia Whitney R.N.) 09 (Given - Provider: Brittanie Lewis R.N.)210 (Given - Provider: Brittanie Lewis R.N.) 09 (Given - Provider: Brittanie Lewis R.N.) trospium tablet 20 mg (SANCTURA) 20 mg, oral, 2 times daily before breakfast and dinner, First dose on Tue09/09/23 at 1600, Administer with water at least 1 hr prior to meals., Restriction Criteria (Pharmacy will review and approve if criteria met): Use in patients 65 years of age or older 0547 (Given - Provider: Lilia Whitney R.N.)1659 (Given - Provider: Leonardo Clark R.N.) 0551 (Given - Provider: Lilia Whitney R.N.)2101 (Given - Provider: Brittanie Lewis R.N.) 09 (Given - Provider: Brittanie Lewis R.N. - [...] 0159 (New Bag - Provider: Lilia Whitney RJonahNJonah)0715 (Stopped - Provider: Leonardo Clark RJonahNJonah) heparin (porcine) 100 Units/mL in NaCl 0.45% [...] Repeat anti-Xa: 6 hours after Heparin resumed 2112 (New Bag - Provider: Lilia Whitney R.N. - Comment: verified by JAMEL Rasmussen) 0548 (New Bag - Provider: Lilia Whitney R.N. - Comment: verified by JAMEL Deleon)0711 (Handoff - Provider: Lilia Whitney R.N. - Comment: verified by JAMEL Gu)0800 (Stopped - Provider: Brittanie Lewis R.N.) NaCl 0.9 % irrigation solution [...] (RAD) 1406 (Given - Provider: Lars Chavez RNarendra)1409 (Given - Provider: Lars Chavez R.N.)1412 (Given [...] 0 0550 (Given - Provider: Lilia Whitney RNarendra) iohexoL 300 mg iodine/mL solution (OMNIPAQUE) (COMPLETED) [...] documented as of this encounter Care Teams Machinery Repair Maintenance Supervisor Relationship Specialty Start Date End Date Elsewhere, Pcp PCP - General Internal Medicine 08/13/23 documented as of this encounter
--- OUTSIDE RECORDS SUMMARY | 2023-09-23 12:46 | XMS_ITS | Encounter Summary ---
Author Organization [facility] Address [address] [place] [address] Care Team Providers Care Coal Pipeline Operator Name Role Phone Elsewhere, Pcp Primary Care Provider Unavailabl e Encounter Details Date Type Department Care Team (Late st Contact Info) Description 09/01/2023 10:05 AM CDT Ancillary Procedure Department of Nursing Social History Tobacco Use Types Packs/Day Years Used Date Smoking Tobacco: Never Smokeless Tobacco: Never [facility] Utilities Answer Date Recorded In the past 12 months has [facility] electric, gas, oil, or water [...] your living situation today? I have a [facility] place to live 08/13/2023 Sex and Gender Information Value Date Recorded Sex Assigned at Not on file Gender Identity Not on file Sexual Orientation Not on file documented as of this encounter Plan of Treatment Upcoming Encounters Date Type Department Care Team (Late st Contact Info) Description 10/14/2023 1:00 PM CDT Procedure visit Department of Urology in [place], [place] [address] [place] [address] Paula Hernandez M.D. [address] [place] [address] documented as of this encounter Procedures Procedure [...] System IMG NON RAD IMAGI NG PROCEDURES IIPA NA documented in this encounter Visit Diagnoses Not on filedocumented in this encounter Care Teams Coal Pipeline Operator Relationship Specialty Start Date End Date Elsewhere, Pcp PCP - General Internal Medicine 08/13/23 documented as of this encounter
--- OUTSIDE RECORDS SUMMARY | 2023-09-23 12:46 | XMS_ITS | Encounter Summary ---
Author Organization [facility] Address [address] [place] [address] Care Team Providers Care Delinquency Prevention Social Worker Name Role Phone Elsewhere, Pcp Primary Care Provider Unavailabl e Reason for Referral * Outpatient (Routine) - Authorized Specialty Diagnoses / Procedures Referred By Leyla t Referred To Contact Diagnoses Hematuria Gross Procedures DX Chest AP or PA and Lateral 2 Views Paula Hernandez M.D. [address] [place] [address] [facility] Referral ID Status Reason Start Date Expiration Date V isits Requested Visits Authorized [id number] Authorized 09/07/2023 09/06/2024 1 1 Encounter Details Date Type Department Care Team (Late st Contact Info) Description 09/06/2023 Clinical Communication [facility] [address] [place] [phone] Yasmine Loco Social History Tobacco Use Types Packs/Day Years Used Date Smoking Tobacco: Never Smokeless Tobacco: Never [facility] Utilities Answer Date Recorded In [...] your living situation today? I have a [facility] place to live 09/09/2023 Sex and Gender Information Value Date Recorded Sex Assigned at Not on file Gender Identity Not on file Sexual Orientation Not on file documented as of this encounter Plan of Treatment Upcoming Encounters Date Type Department Care Team (Late st Contact Info) Description 10/14/2023 1:00 PM CDT Procedure visit Department of Urology in [place], [place] [address] [place] [phone] Paula Hernandez M.D. [address] [place] [address] Scheduled Orders Name Type Priority Associated Diagnoses Orde r Schedule DX Chest AP or PA and Lateral 2 Views Imaging RAD - Routine (most inpatients and all outpatients) Hematuria Gross Expected: 09/08/2023, Expires: 09/05/2024 documented as of this encounter Visit Diagnoses Diagnosis Hematuria Gross- Primary documented in this encounter Care Teams Delinquency Prevention Social Worker Relationship Specialty Start Date End Date Elsewhere, Pcp PCP - General Internal Medicine 08/13/23 documented as of this encounter
--- OUTSIDE RECORDS SUMMARY | 2023-09-23 12:47 | XMS_ITS | Encounter Summary ---
Author Organization [facility] Address [address] [place] [address] Care Team Providers Care Adobe Layer Helper Name Role Phone Elsewhere, Pcp Primary Care Provider Unavailabl e Encounter Details Date Type Department Care Team (Late st Contact Info) Description 08/30/2023 Documentation Department of Urology in [place], [place] [address] [place] [address] Corin Ring M.D. [address] [place] [address] Social History Tobacco Use Types Packs/Day Years Used Date Smoking Tobacco: Never Smokeless Tobacco: Never [facility] Utilities Answer Date Recorded In the past 12 months has [facility] [employer], gas, oil, or water [employer] threatened to shut off services in your [...] situation today? I have a [facility] place to live 08/13/2023 Sex and Gender Information Value Date Recorded Sex Assigned at Not on file Gender Identity Not on file Sexual Orientation Not on file documented as of this encounter Plan of Treatment Upcoming Encounters Date Type Department Care Team (Late st Contact Info) Description 10/14/2023 1:00 PM CDT Procedure visit Department of Urology in [place], [place] [address] [place] [address] Paula Hernandez M.D. [address] [place] [address] documented as of this encounter Visit Diagnoses Not on filedocumented in this encounter Care Teams Adobe Layer Helper Relationship Specialty Start Date End Date Elsewhere, Pcp PCP - General Internal Medicine 08/13/23 documented as of this encounter
--- OUTSIDE RECORDS SUMMARY | 2023-09-23 12:47 | XMS_ITS | Encounter Summary ---
Author Organization [facility] Address [address] [place] [address] Care Team Providers Care Medical Screener Name Role Phone Elsewhere, Pcp Primary Care Provider Unavailabl e Encounter Details Date Type Department Care Team (Late st Contact Info) Description 08/26/2023 Orders Only Department of Urology in [place], [place] [address] [place] [address] Paula Hernandez M.D. [address] [place] [address] Social History Tobacco Use Types Packs/Day Years Used Date Smoking Tobacco: Never Smokeless Tobacco: Never [facility] Utilities Answer Date Recorded In the past 12 months has [facility] [employer], gas, oil, or water [employer] threatened to shut off services in your [...] your living situation today? I have a [facility] place to live 08/13/2023 Sex and Gender Information Value Date Recorded Sex Assigned at Not on file Gender Identity Not on file Sexual Orientation Not on file documented as of this encounter Plan of Treatment Upcoming Encounters Date Type Department Care Team (Late st Contact Info) Description 10/14/2023 1:00 PM CDT Procedure visit Department of Urology in [place], [place] [address] [place] [address] Paula Hernandez M.D. [address] [place] [address] documented as of this encounter Visit Diagnoses Not on filedocumented in this encounter Care Teams Medical Screener Relationship Specialty Start Date End Date Elsewhere, Pcp PCP - General Internal Medicine 08/13/23 documented as of this encounter
--- OUTSIDE RECORDS SUMMARY | 2023-09-23 12:47 | XMS_ITS | Encounter Summary ---
Author Organization [facility] Address [address] [place] [address] Care Team Providers Care Instrument Lens Inspector Name Role Phone Elsewhere, Pcp Primary Care Provider Unavailabl e Encounter Details Date Type Department Care Team (Latest Contact Info) Description 08/30/2023 Intake [facility] Social History Tobacco Use Types Packs/Day Years Used Date Smoking Tobacco: Never Smokeless Tobacco: Never [facility] Utilities Answer Date Recorded In the past 12 months has [facility] electric, gas, oil, or water company threatened [...] your living situation today? I have a [facility] place to live 08/13/2023 Sex and Gender Information Value Date Recorded Sex Assigned at Not on file Gender Identity Not on file Sexual Orientation Not on file documented as of this encounter Plan of Treatment Upcoming Encounters Date Type Department Care Team (Late st Contact Info) Description 10/14/2023 1:00 PM CDT Procedure visit Department of Urology in [place], [place] [address] [place] [address] Paula Hernandez M.D. 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
--- OUTSIDE RECORDS SUMMARY | 2023-09-23 12:47 | XMS_ITS | Encounter Summary ---
Author Organization [facility] Address [address] [place] [address] Care Team Providers Care Clinic Lpn Name Role Phone Elsewhere, Pcp Primary Care Provider Unavailabl e Reason for Visit * Reason Comments Urinary Problem Rapid Heart Rate Encounter Details Date Type Department Care Team (Late st Contact Info) Description 08/31/2023 12:36 PM CDT - 08/31/2023 2:31 PM CDT Surgery RST ROMB MAIN OR [address] [place] [address] Mayur Alvarez M.D. [address] [place] [address] CYSTOSCOPY EVACUATION CLOTS Social History Tobacco Use Types Packs/Day Years Used Date Smoking Tobacco: Never Smokeless Tobacco: Never [facility] Utilities Answer Date Recorded In the past 12 months has [facility] [employer], gas, oil, or water [employer]ptive [employer] threatened to shut off services in your [...] your living situation today? I have a [facility] place to live 08/13/2023 Sex [...] PM CDT DISCHARGE SUMMARY BRIEF OVERVIEW Hospital: RST [facility] Discharge Provider: Mayur Alvarez M.D. Primary Team: RSMaira Urology Surgery - Chief Helga Rojas Primary [...] CYSTOGRAM Mayur Alvarez M.D.White, Lindsay A, M.D. T ROMB OR DISCHARGE DISPOSITION [facility] Care [facility] [6] ACTIVE ISSUES REQUIRING FOLLOW UP OUTPATIENT [...] CONSULT TO CARE MANAGEMENT IP CONSULT TO TEMPERATURE REGULATOR PYROMETER WOUND CARE IP CONSULT TO HYPERBARIC MEDICINE CONDITION AT DISCHARGE improved Discharge instructions were provided to the patient and caregiver(s). documented in this encounter Discharge Instructions * Patient Instructions* Carmen Louis R.N. - 08/31/2023 9:44 AM CDT The Senior LinkAge Line?? is a service of the [place] Board on Aging in partnership with [place]'s Area Agencies on Aging. It is a free service of the [facility] [place] that connects older [place] and their families with the help they need. Call the Senior LinkAge Line?? at: [phone] M-F, 8am-4:30pm to connect with specialists that are available to assist you with your specific needsor check out their website at https://www.[employer] * Attachments The following attachments cannot be sent through Care Everywhere. * Cefdinir (By mouth) (Wallisian) documented in this encounter Medications at Time [...] questions or concerns. Pager during business hours: [phone] Pager after hours: [phone] * Jeffery Valdez M.D. - 09/04/2023 10:34 [...] questions or concerns. Pager during business hours: [phone] Pager after hours: [phone] * Jeffery Valdez M.D. - 09/03/2023 4:10 [...] heparin initiated POD 0 --LE US obtained 08/16 PM due to [...] consider transitioning him back [facility] Summary: Diet: Regular Activity: Ad kong [...] questions or concerns. Pager during business hours: [phone] Pager after hours: [phone] * Paula Hernandez M.D. - 09/02/2023 6:25 [...] questions or concerns. Pager during business hours: [phone] Pager after hours: [phone] * Michelle Willams R.N., C.W.C.N. - 09/01/2023 11:43 AM CDT [facility] Wound RN consulted to assess Kalen Craig Galeasheber skin alterations. Wound assessment, pain, and Wilberto [...] Secondary Dressing Status Clean;Dry;Intact Changed by Wound strategy lead Ongoing management Nursing;Wound/accounting practice manager Urine Assessment Urine Color Colorless Hematuria Scale [place] Urine Appearance Clear;Sediment Head to toe skin [...] update the patient. Son stated that a Hook And Eye Machine Operator visited the home and will be trying to assist both and patient with cares/coordination. OBJECTIVE Patient is located on [facility] room 111. Referrals were sent to the following agencies: Home Medical Care - Admitted Since 08/30/2023 Service Provider Request Status Selected Services Address Phone Fax Patient Preferred [facility] [place] Pending - Request Sent N/A [address], [facility] [phone] -- [facility] Pending - Request Sent N/A [address], [facility] [address] [phone] -- Home Health Care Pending - Request Sent N/A [address], [facility] [address] [phone] -- [facility] Pending - Request Sent N/A [address] [facility] [phone] -- [place] [facility] Pending - Request Sent N/A [address] [facility] [phone] -- [facility] Pending - Request Sent N/A [address] [facility] [address], [facility] [phone] [phone] -- [facility] Health Declined Facility Full N/A [address] [facility] [phone] -- ASSESSMENT / PLAN ASSESSMENT Director Biologics attempted to contact patient on room phone but was unable to get through. Case Manageras able to reach his son who will update that patient that the preferred home health agency was unable to accept and that referrals would be sent to other home health agencies. Requested services arenursing for wound care and catheter and PT/OT. PLAN Director Biologics will follow up with referrals. Case Manger [...] questions or concerns. Pager during business hours: [phone] Pager after hours: [phone] * Paula Hernandez M.D. - 08/31/2023 10:45 [...] risks associated with surgery and anesthesia including MO, stroke, and VTE were also discussed. Finally, [...] questions or concerns. Pager during business hours: [phone] Pager after hours: [phone] Associated attestation - Mayur Alvarez M.D. - [...] Complete Set By: Demarco Salazar Pharm.D., R.Ph., [facility] at 08/31/2023 7:22 AM Taking? Last [...] an 83 y.o. male transferred to the [facility] ED for further management of gross [...] for CBI. He was then transferred to [facility] on 08/12; a CT cystogram was [...] was initiated on CBI and transferred to [facility] for further management. On my initial [...] for radiation proctitis SOCIAL HISTORY Lives in [place], [place] OBJECTIVE Vitals Blood pressure 134/84, pulse [...] & Screen Expiration 09/02/2023 23:59 Testing Location [place] Imagin08/30/23 EXAM: US URINARY BLADDER COMPARISON: CT [...] hematuria, clot obstruction and was transferred to [facility] for further evaluation and management. Urinary bladder ultrasound showing 5 cm clot burden; catheter draining on fast-rate CBI after multiple rounds of hand irrigation. Plan - Continue CBI - Q2h hr hand irrigations - NPO overnight pending am re-evaluation - Hold Plavix, Xarelto for now The above was discussed with Drs. Venegas and Lefty, the chief urology residents all source collection manager. Please page chief Urology Service [place] [phone] [place] [phone] afterhours. documented in this encounter Procedure Notes * Leonardo Kellogg, RJonahN. - 08/30/2023 8:00 PM CDT Procedures [...] on androgen deprivation therapy. 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 No scuba diving experience. Electronic health [...] prolonged inpatient stay, would request transfer to [facility] prior to initiation of hyperbaric oxygen [...] HBO Risk Management Plan:Standard precautions * Carmen Louis R.N. - 08/31/2023 9:45 AM CDTAssociated Order(s): IP CONSULT TO CARE MANAGEMENT Discharge Planning Assessment SUBJECTIVE Assessment Information Referral Source: Early Screen for Discharge Planning Referral Name: ESDP 11 Referral Reason: Discharge Planning Primary Language: Wallisian Energy Assistant Services Used: No Person(s) present during interview: [...] Communication: Can write, Talks, Understands speaking, Understands Wallisian, Reads Shopping: Needs assistance Medication Management: Independent Housekeeping: Needs assistance Meal Prep: Independent Assistive Devices: Walker - front wheeled, Eyeglasses, Hearing aid(s) Agency Name: [facility] Provided: Fci/PT/OT Transportation: Support from family Baseline Services/Resources Primary care clinic and provider: ELSEWHERE, PCP Additional Resources: N/A Anticipated Needs Functional Status: Housekeeping, Shopping, Transportation use (drive car, use taxi/bus), Mobility, Transfer to/from bed, chair, etc., Bathing Assistive Devices: Eyeglasses, Hearing aid(s), Walker - front wheeled Services/Resources: Home health Agency Name: [facility] Provided: Fci/PT/OT Anticipated Modifications to the Patient's Home: None Transportation Needs: Support from family Does the patient need discharge transport arranged?: No Anticipated Discharge Destination: Home-Health Care [facility] ASSESSMENT / PLAN Assessment: The die repair machinist met with Kalen Vega to discuss his current hospitalization and home goingneeds. The patient was accompanied by son, Kar . The patient was a reliable historian. The role ofRN Director Biologics was reviewed. The patient reviewed his prior level of care and support system. The patient receives support from his and children. The patient described his living environment as a home with bedroom and bathroom on same floor withstairs to enter with rails. Housekeeping, grocery shopping, meal prep, and other household responsibilities have previously been completed by patient and patient's son. die repair machinist discussed the patient's potential needs at dismissal based on their home setting, previous needs and responsibilities, homebound status, and relevant assessments with the patient. The patient will be safe and supported to return home with [facility] or previous services noted above when medically [...] removal he would not need care. Director Biologics will clarifywith home health team regarding if [...] chart and meeting with the patient, the die repair machinist deemed the LACE+/readmission questions were appropriate. The [...] current readmission could have been prevented. The die repair machinist will share this information with the care team. The patient reports understanding that he will dismiss from the hospital when medically stable. Thefollowing potential barriers to dismissal have been identified: Home Health Care Addendum 1230: Director Biologics called [facility]. They received the referral but declined due to being at capacity. Plan: The patient agrees with the following plan. Patient's anticipated discharge disposition is: Home with Home Healthcare Referrals sent. Transportation upon dismissal will be provided by family--Kar . die repair machinist recommended home health services. die repair machinist provided information regarding the dismissal process and the Senior Linkage Line ([place] Board [place]) handout. die repair machinist placed or requested the following hospital-based consult orders and/or referrals: None. die repair machinist will follow up with the patient to [...] with updates and/or transition plan to come. die repair machinist encouraged the patient to reach out with any questions/concerns. Care Management will continue to follow. Signed by: Carmen Loius R.N. 08/31/2023 documented in this encounter Nursing [...] CDT Pre-op Diagnosis Hematuria Post-op Diagnosis Hematuria Academic Guidance Specialist A registered nurse first assistant actively participated and was necessary for [...] or filling defects. 5. Placement of [address] catheter with 20 cc in [...] The resectoscope was removed and a [address] catheter was placed with 20 [...] secondary to cystostomy closure presenting today from [place] with concerns for worsening hematuria. He was [...] Course as of 08/30/232209e August 30, 20232140 Urinary Bladder There is a large clot [...] 08/30/2023 8:48 AM CDT Pt transferred from [facility] via EMS, pt c/o blocked jon cath that started today. Pt had a right uretal stent exchange and an open bladder repair 08/15/23 and was discharged 08/25. Pt had a3 way jon placed at [place], and transferred here because the clots returned. [...] is currently managed on Xarelto. - PN, 5- by Dr. Vega Urinary catheter has thick [...] RN, CPN, CCDS, CCS, CRC Clinical Documentation Locomotive Firer/Fireman Query created by: ELMER Barker, RN, CPN, [...] was 08/29. Last dose of Xarelto was 5/20. CT cystogram 08/30 demonstrated large volume of [...] CDT Procedure visit Department of Urology in [place], [place] [address] [place] [address] Paula Hernandez M.D. [address] [place] [address] Pending Results Name Type Priority Associated Diagnoses [...] CDT Roxy Romero M.D. LAB BLOOD ADD-ON [facility] [address] [place] [address], [facility] DTL [facility] [address] [place] [address] * (ABNORMAL) Basic Metabolic Panel (09/05/2023 4:52 [...] Jakob De Paz M.D. LAB BLOOD ADD-ON [address] [address], [address] [address] * (ABNORMAL) Basic Metabolic Panel (09/04/2023 8:15 PM CDT) [facility] Potassium, S 3.2(L) 3.6 - 5.2 [...] CDT Jeffery Valdez M.D. LAB BLOOD ADD-ON [address] [address], [facility] [address] [place] [address] * (ABNORMAL) CBC without Differential (09/04/2023 8:15 [...] M.D. LAB BLOOD ADD-ON Performing Organization Address City/[facility]/ZIP Co de Phone Number [facility] [address] [place] [address], [facility] [address] [place] [address] * Transfuse Red Blood Cells : (09/04/2023 3:30 PM CDT) Jeffery Valdez M.D. BLOOD TRANSFUSION OR DERABLES * Transfuse Red Blood Cells : , 1 Units (09/04/2023 3:30 PM CDT) Jeffery Valdez M.D. BLOOD TRANSFUSION OR DERABLES * Type and Screen (with Reflex Antibody ID) (09/04/2023 10:59 AM CDT) Pathologist [facility] ABORh O Pos Not applicable 09/04/2023 11:46 AM CDT STRM Antibody Screen Negative Negative 09/04/2023 11:59 AM CDT STRM Type & Screen Expiration 09/07/2023 23:59 09/04/2023 11:46 AM CDT STRM Testing Location [place] DEFAULT 09/04/2023 11:21 AM CDT [facility] Blood (Blood, Venous) 09/04/2023 10:59 AM CDT 09/04/2023 11:21 AM CDT Jeffery Valdez M.D. LAB BLOOD BANK TEST ORDERABLES Performing Organization Address [facility]/ZIP Co de Phone Number [facility] [address] [place] [address], [facility] [address] [place] [address] * Heparin Anti-Xa Assay (09/04/2023 7:34 AM CDT) [facility] Heparin Anti-Xa, P 0.12 IU/mL 2023 8:14 [...] Alvarez M.D. LAB BLOOD NON A DD-ON [place] [address] [place] [address] * (ABNORMAL) CBC without Differential (09/04/2023 7:34 AM CDT) Hemoglobin 7.7(L) 13.2 - 16.6 g/dL 09/04/2023 [...] M.D. LAB BLOOD ADD-ON Performing Organization Address [facility] Co de Phone Number [facility] [address] [place], [place] [address] [place] [address] [address] [place] [address] * Heparin Anti-Xa Assay (09/04/2023 12:30 AM [...] BLOOD NON A DD-ON Performing Organization Address City/[facility] Co de Phone Number [facility] [address] [place] [address], [facility] [address] [place] [address] * Bacterial Culture, Aerobic + Susceptibility, Urine (09/03/2023 10:50 AM CDT) Urine Culture No growth after 1 day of incubation. 09/04/2023 8:52 AM CDT DT Urine (Urine, Indwelling Catheter) 09/03/2023 10:50 AM CDT 09/03/2023 11:53 AM CDT Comment:Specimen Source Site : Urine Jeffery Valdez M.D. LAB MICROBIOLOGY - G ENERAL ORDERABLES Performing Organization Address City/[facility]/ZIP Co de Phone Number [facility] [address] [facility] [address] [place] [address] * (ABNORMAL) CBC without Differential (09/03/2023 3:29 AM CDT) [facility] Hemoglobin 8.0(L) 13.2 - 16.6 g/dL [...] CDT Paula Hernandez M.D. LAB BLOOD ADD-ON [facility] [address] [place], [place] [address] [place] [address] DT[facility] [address] [place] [address] * Heparin Anti-Xa Assay (09/03/2023 3:29 AM [...] Alvarez M.D. LAB [place]OD [place] [address], [facility] [place] [address] * Heparin Anti-Xa Assay (09/02/2023 2:57 AM [...] BLOOD NON A DD-ON Performing Organization Address [facility] Co de Phone Number [facility] [address] [place], [place] [address] DT[facility] [address] [place] [address] * (ABNORMAL) CBC without Differential (09/01/2023 8:16 PM CDT) [facility] Hemoglobin 8.5(L) 13.2 - 16.6 g/dL [...] M.D. LAB BLOOD ADD-ON Performing Organization Address City/[facility]/ZIP Co de Phone Number [facility] [address] [place] [address], [facility] [address] [place] [address] * Heparin Anti-Xa Assay (09/01/2023 6:50 PM CDT) [facility] Heparin Anti-Xa, P 0.35 IU/mL 2023 [...] BLOOD NON A DD-ON Performing Organization Address [facility]/ZIP Co de Phone Number [facility] [address] [place] [address], [facility] DTL [facility] [address] [place] [address] * APTT (Activated Partial Thromboplastin Time) (09/01/2023 9:05 AM CDT) Pathologist [facility] Activated Partial Thrombopl Time, P 28 25 - 37 sec 09/01/2023 9:35 AM CDT [facility] Blood (Blood, Venous) 09/01/2023 9:05 AM CDT 09/01/2023 9:21 AM CDT Paula Hernandez M.D. LAB BLOOD ADD-ON Performing Organization Address [facility]/ZIP Co de Phone Number [facility] [address] [place] [address], [facility] [place] [address] * (ABNORMAL) Basic Metabolic Panel (08/31/2023 9:36 PM CDT) Pathologist [facility] Potassium, [...] CDT Paula Hernandez M.D. LAB BLOOD ADD-ON [place] [address] [place] [address], [facility] [address] [place] [address] * (ABNORMAL) CBC without Differential (08/31/2023 9:36 [...] CDT Paula Hernandez M.D. LAB BLOOD ADD-ON [facility] [address] [place] [address], [facility] [address] [place] [address] * FL Fluoro Less Than 1 Hour (08/31/2023 2:12 PM CDT) Narrative 152 HOS LOS RST - 08/31/2023 2:13 PM CDT This exam does not require a radiologist review or interpretation. Please refer to the patient's medical record on this date for clinical details. Mayur Alvarez M.D. IMG FLUOROSCOPY PROCEDURES Performing Organization Address City/[facility]/ZIP Co de Phone Number 152 HOS [...] in the bladder lumen. Paula Hernandez M.D. [facility] CT PROCEDURES * (ABNORMAL) Hemoglobin (08/31/2023 4:21 AM CDT) Hemoglobin 7.8(L) 13.2 - 16.6 g/dL 08/31/2023 4:47 AM CDT DTL Blood (Blood, Venous) 08/31/2023 4:21 AM CDT 08/31/2023 4:35 AM CDT Kimi Vieira M.D., M.S. LAB BLOO D ADD-ON [facility] [address] [place] [address], [facility] DTL [facility] [address] [place] [address] * Type and Screen (with Reflex Antibody ID) (08/30/2023 9:50 PM CDT) [facility] ABORh O Pos Not applicable 08/30/2023 10:17 PM CDT STRM Antibody Screen Negative Negative 08/30/2023 10:31 PM CDT STRM Type & Screen Expiration 09/02/2023 23:59 08/30/2023 10:17 PM CDT STRM Testing Location [place] DEFAULT 08/30/2023 9:58 PM CDT STRM Blood (Blood, Venous) 08/30/2023 9:50 PM CDT 08/30/2023 9:58 PM CDT Shannan Correa D.O., M.H.A. LAB BLOOD BANK TEST ORDERABLES [facility] [address] [place] [address], [facility] STRM [facility] [address] [place] [address] * Lactate (08/30/2023 9:50 PM CDT) [facility] Lactate, P 1.8 0.5 - 2.2 mmol/L 08/30/2023 10:09 PM CDT [facility] Blood (Blood, Venous) 08/30/2023 9:50 PM CDT 08/30/2023 9:55 PM CDT Shannan Correa D.O., M.H.A. LAB BLOOD NON ADD-ON [facility] [address] [place], [place] [address] [address] [place] [address] * (ABNORMAL) Basic Metabolic Panel (08/30/2023 9:49 PM CDT) [facility] Potassium, P 3.6 3.6 - 5.2 mmol/L [...] Correa D.O., M.H.A. LAB BLOOD ADD- ON [facility] [address] [place] [address], [facility] [address] [place] [address] * (ABNORMAL) CBC with Differential, Blood (08/30/2023 9:49 PM CDT) [facility] Hemoglobin 8.5(L) 13.2 - 16.6 g/dL [...] Correa D.O., M.H.A. LAB BLOOD ADD- ON [facility] [address] [place] [address], [facility] [address] [place] [address] [facility] [address] [place] [address] * DX Chest AP or PA and [...] CDT) Ventricular Rate ECG/Min 145 BPM MUSE IA Interval 136 ms MUSE QRSD Interval 64 ms MUSE QT Interval 260 ms MUSE QTC Interval 403 ms MUSE P [place] 44 degrees MUSE R [place] 9 degrees MUSE T Wave [place] -76 degrees MUSE 08/30/2023 7:44 PM CDT [...] 0900 (Not Given - Provider: Sarah Morgan RNarendra - Reason: See Provider Order)1602 (Unheld by provider - Provider: Jeffery Valdez [...] give total of 40 mEq Dissolve per java jsf developer recommendations. Do NOT chew or swallow tablet., [...] R.N.)2109 (Given - Provider: Gaye Dillard R.N.) 0814 (Not Given - Provider: Tayler Espinoza R.N. [...] Gaye Dillard R.N.)0938 (Stopped - Provider: Joy L Kalla, R.N.) NaCl 0.9 % irrigation solution 3,000 [...] intravenous, As needed, antiXa 0.1-0.19, Starting on [facility] 09/03/23 at 1608, Intensity type: Moderate, Anti-Xa < 0.1: Loading Dose (Units/kg): 60, Anti-Xa 0.1-0.19: Loading Dose (Units/kg): 30, Anti-Xa > 0.19: Loading Dose (Units/kg): 0 Or heparin (porcine) 1,000 unit/mL injection 5,500 Units (CANCELED) 5,500 Units (rounded from 5,544 Units = 60 Units/kg ? 92.4 kg), intravenous, As needed, antiXa less than 0.1, Starting on [facility] 09/03/23 at 1608, Intensity type: Moderate, Anti-Xa [...] 2256 documented in this encounter Care Teams Clinic Lpn Relationship Specialty Start Date End Date Elsewhere, Pcp PCP - General Internal Medicine 08/13/23 documented as of this encounter
--- OUTSIDE RECORDS SUMMARY | 2023-09-23 12:48 | XMS_ITS | Encounter Summary ---
Author Organization [facility] Address [address] [place] [address] Care Team Providers Care Pulverizer Tender Name Role Phone Elsewhere, Pcp Primary Care Provider Unavailabl e Encounter Details Date Type Department Care Team (Late st Contact Info) Description 08/23/2023 12:45 AM CDT Ancillary Procedure Department of Nursing Social History Tobacco Use Types Packs/Day Years Used Date Smoking Tobacco: Never Smokeless Tobacco: Never [facility] Utilities Answer Date Recorded In the past 12 months has [facility] electric, gas, oil, or water [...] your living situation today? I have a [facility] place to live 08/13/2023 Sex and Gender Information Value Date Recorded Sex Assigned at Not on file Gender Identity Not on file Sexual Orientation Not on file documented as of this encounter Plan of Treatment Upcoming Encounters Date Type Department Care Team (Late st Contact Info) Description 10/14/2023 1:00 PM CDT Procedure visit Department of Urology in [place], [place] [address] [place] [address] Paula Hernandez M.D. [address] [place] [address] documented as of this encounter Procedures Procedure [...] System IMG NON RAD IMAGI NG PROCEDURES IIMI NA documented in this encounter Visit Diagnoses Not on filedocumented in this encounter Care Teams Pulverizer Tender Relationship Specialty Start Date End Date Elsewhere, Pcp PCP - General Internal Medicine 08/13/23 documented as of this encounter
--- OUTSIDE RECORDS SUMMARY | 2023-09-23 12:48 | XMS_ITS | Encounter Summary ---
Author Organization [facility] Address [address] [place] [address] Care Team Providers Care Delivery And Mail Sorter Name Role Phone Elsewhere, Pcp Primary Care Provider Unavailabl e Encounter Details Date Type Department Care Team (Late st Contact Info) Description 08/15/2023 8:30 AM CDT Anesthesia Event [facility] MAIN OR [address] [place] [address] Hayde Song M.D. [address] [place] [address] Anesthesia Record Procedure Summary Procedure Name Responsible [...] Location: Antecubital; Removal Date: 08/15/23; Removal Time: 0909 08/13/23 0000 by Jose Haro, M.S.N., R.N. 08/15/23 0909 by Rae Gonzalez APRN, WATER OPERATOR, DNAP Peripheral IV Placement Date: 08/02; Existing [...] DNAP 08/15/23 1253 by Rae Gonzalez APRN, CRNA, [...] M.D. 08/15/23 1326 by Bobby Green R.N. Bladder Irrigation 08/15/23; 1143; Dr. De Paz; Continuous; Three-way; 24 Fr; 30 mL (balloon filled with 10 ml water); Yes; 08/31/23; 1304 08/15/23 1143 by Janina Coronado R.N. 08/31/23 1304 by Jaqcui Mehta R.N. Closed/Suction Drain 08/15/23; 1215; Med ial; LLQ; Bulb; 15 Fr.; No longer in place 08/15/23 1215 by Jannia Coronado R.N. 08/26/23 0000 by Lupe Valdez RJonahNJonah NG/OG Tube 08/15/23; 1234; Nasogastric; Right; 08/17/23; 1430 08/15/23 1234 by Rae Gonzalez APRN, GAVIN, DNAP 08/17/23 1430 by Jr Samuel, R.N. documented in this encounter Social History Tobacco Use Types Packs/Day Years Used Date Smoking Tobacco: Never Smokeless Tobacco: Never [facility] Utilities Answer Date Recorded In the past 12 months has e [employer], gas, oil, or water [employer] threatened to shut off services in [...] Answer Date Recorded Dental: Regular Dentist Unknown 02/19/20 21 Housing Stability Answer Date Recorded What [...] Procedure Summary Date: 08/15/23 Room / Location: [address] [facility] in [place], [place] Anesthesia Start: 829 Anesthesia Stop: 1317 [...] ETT location: oral VL device: glide scope [place] scope blade size: 4 Tube size: 7.5 [...] 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 Location: [place] [address] / [facility] in [place], [place] Providers: Boubacar Brock M.D. Pertinent components [...] patient / legal guardian, or through an wafer batter mixer; patient evaluated and approved for anesthesia / [...] CDT Procedure visit Department of Urology in [place], [place] [address] [place] [address] Paula Hernandez M.D. [address] [place] [address] documented as of this encounter Procedures Procedure Name Priority Date/Time Associated Diagnosis Comments MC ANE INVASIVE CATH WITH ULTRASOUND Routine 08/15/2023 9:51 AM CDT LDA ANE ARTERIAL LINE INSERTION Routine 08/15/2023 9:51 AM CDT CA US GUIDE VASC ACCESS Routine 08/15/2023 9:51 AM CDT CA ARTL CATH/CNULA MONITOR PERC Routine 08/15/2023 9:51 AM CDT LDA ANE ENDOTRACHEAL AIRWAY Routine 08/15/2023 8:40 AM CDT documented in this encounter Results * CA ARTL CATH/CNULA MONITOR PERC, CA US GUIDE VASC ACCESS, LDA ANE ARTERIAL [...] ETT location: oral VL device: glide scope [place] scope blade size: 4 Tube size: 7.5 [...] mg documented in this encounter Care Teams Delivery And Mail Sorter Relationship Specialty Start Date End Date Elsewhere, Pcp PCP - General Internal Medicine 08/13/23 documented as of this encounter
--- OUTSIDE RECORDS SUMMARY | 2023-09-23 12:48 | XMS_ITS | Encounter Summary ---
Author Organization [facility] Address [address] [place] [address] Care Team Providers Care Antique Furniture Reproducer Name Role Phone Elsewhere, Pcp Primary Care Provider Unavailabl e Encounter Details Date Type Department Care Team (Latest Contact Info) Description 08/13/2023 3:42 PM CDT - 08/26/2023 4:11 PM CDT Hospital Encounter [facility], [facility], Sixth Floor [address] [place] [address] Darnell Garcia M.D. [address] [place] [phone] Boubacar Brock M.D. [address] [place] [address] Decline Functional Status [R53.81] (Primary Dx); Hematuria [R31.9] Discharge Disposition: Home or Self Care Social History Tobacco Use Types Packs/Day Years Used Date Smoking Tobacco: Never Smokeless Tobacco: Never [facility] Utilities Answer Date Recorded In the past [...] your living situation today? I have a [facility] to live 08/13/2023 Sex and [...] AM CDT DISCHARGE SUMMARY BRIEF OVERVIEW Hospital: [facility] Discharge Provider: Boubacar Brock M.D. Primary [...] M.D.Wen, Lexiaochuan, M.D.Premo, Hayley, M.D.Botkin, Hannah, M.D. [facility] ROMB OR DISCHARGE DISPOSITION Home or Self Care [1] ACTIVE ISSUES REQUIRING FOLLOW UP OUTPATIENT FOLLOW UP Scheduled Appointments 08/26/2023 1:00 PM [facility]ESHIA VERAS [facility] Radiology For appointment details refer to [...] he felt completely obstructed and presented to [place] [facility]. [place] Course Attempted Tabares insertion but bladder irrigation was unsuccessful on multiple attempts. Hung 1U pRBC's. Given some volume and transferred to [facility] ICU ICU Course Urology consulted and [...] CONSULT TO NUTRITION SUPPORT IP CONSULT TO CONSUMER AFFAIRS MANAGER WOUND CARE CONDITION AT DISCHARGE stable Discharge [...] he felt completely obstructed and presented to [place] [facility]. [place] Course Attempted Tabares insertion but bladder irrigation was unsuccessful on multiple attempts. Hung 1U pRBC's. Given some volume and transferred to [facility] ICU ICU Course Urology consulted and [...] PM CDT You were discharged from the [facility] Urology Surgery - Chief A - Blue Service. Please identify this service name if you call with questions after hospitalization. * Attachments The following attachments cannot be sent through Care Everywhere. * Bacitracin (On the skin) (Dominican) * Cefdinir (By mouth) (Dominican) * Trospium (By mouth) (Dominican) documented in this encounter Medications at Time [...] [facility] - 08/26/2023 4:27 PM CDT 08/26/23 2309 Reason Therapy Missed Reason Therapy Missed Receiving other care Attempted to see patient twice today. On 1st attempt patient was receiving blood transfusion and RNwas working on completing cares with him. On 2nd attempt patient was with another provider. * Chary Diamond M.A., O.T., [facility] - 08/26/2023 10:21 AM CDT Occupational Therapy Acute Hospital Inpatient Treatment SUBJECTIVE Patient's Name: Kalen Vega Referring/Attending Provider: Boubacar Brock M.D. Reason for Referral: Occupational Therapy Evaluation and Treatment History of Present Illness: Kalen Vega is a 83 y.o. male who was admitted to [facility] in [place] on 08/13/2023 for Hematuria [R31.9]. Precautions Other Precautions: Abdominal, fall precautions, monitor tachycardia and hypertension Pain Assessment: Pain not reported during session. Subjective Comments: Agreeable to therapy session. Team Communication: The patient's status was discussed and coordination of care occurred with RN, Family/Caregiver, nurse tech Family/Caregiver Present: son and [id number] OBJECTIVE Vital Signs: Vitals not formally assessed during session. No concerns during chart review and the patient had nosigns or symptoms consistent with vital changes during therapy session. Outcome Measures: [facility] Inpatient Short Form: Putting on and taking [...] at or below 17 Clinicians answer the [facility] Inpatient Short Form based on observed patient [...] through pant leg first. - Adaptive Equipment: Black Oxide Operator TOILETING - Assist Level: Maximal Assist - [...] (Edge of bed) - Assist Level: Modified [place] - Equipment: bed rail - Therapist Delivery: assessed, instructed, assisted - Adaptive Equipment: leg flake or shred roll operator trialed ; however, patient able to move [...] extremity (stiff knee) first. Recommended adaptive equipment: Black Oxide Operator. Toileting - Patient instructed on accurate positioning [...] maximal exertion Handouts provided: Bathroom Safety Equipment [id number], Techniques to Help You Save Energy [id number] Patient was left in bedside chair with [...] health care OBJECTIVE Patient is admitted in [place] 6C -room 121 ASSESSMENT / PLAN SENIOR PATIENT ACCOUNT REPRESENTATIVEcircuit manager met with patient and son Kar to inform them of home health care acceptance for PT/OT. Patient's son Kar and [id number] will provide transportation at the time of discharge. PLAN Patient to discharge home with home health care. Home Medical Care - Admitted Since 08/13/2023 Service Provider Selected Services Address Phone Fax Patient Preferred [facility] [address] [facility] [phone] -- Orientation & Mobility Specialist: Ghazal NURSING: - Complete documentation in the Discharge Navigator including Nursing Report Info and Facility/NextLevel of Care Info - Call report and arrange for the patient's first visit - Send After Visit Summary and required packet of dismissal information with patient, including advance directive. PRIMARY SERVICE: - Please provide a non-[place] home health order for: physical therapy and [...] be provided by family--patient's son Kar and oddnrwaf-ma-ign. 3. design verification engineer recommended reaching out to family, friends, and neighbors for assistance. 4. design verification engineer provided information regarding the dismissal process. Damaris [...] Reviewed with patient #1 Hematuria Please page [facility] ([phone]) or [facility] ([phone]) Nutrition Support Service pager with questions. * Emeterio Buchanan P.T., D.P.T., [facility] - 08/25/2023 9:35 AM CDT Physical Therapy Inpatient Treatment SUBJECTIVE Patient's Name: Kalen Vega Referring/Attending Provider: Boubacar Brock M.D. Reason for Referral: Physical Therapy Evaluate and Treat History of Present Illness: Kalen Vega is a 83 y.o. male who was admitted to [facility] in [place] on 08/13/2023 for Hematuria [R31.9] Precautions Other [...] throughout session; within normal ranges. Outcome Measures: -[facility] Inpatient Short Form: AM-PAC Basic Mobility (V.2) [...] 3-5 steps with a railing?: A Little AM-PAC Basic Mobility (V.2) Raw Score: 18 AM-PAC [...] fit with adult there which they usually [facility] with a difference educated fully know who [...] - 08/25/2023 9:18 AM CDT Occupational Therapy [facility] Inpatient Treatment SUBJECTIVE Patient's Name: Kalen Vega Referring/Attending Provider: Boubacar Brock M.D. Reason for Referral: Occupational Therapy Evaluation and Treatment History of Present Illness: Kalen Vega is a 83 y.o. male who was admitted to [facility] in [place] on 08/13/2023 for Hematuria [R31.9]. Precautions Other Precautions: Abdominal, fall precautions, monitor tachycardia and hypertension Pain Assessment: Pain not reported during session. Subjective Comments: Agreeable to therapy session. Team Communication: The patient's status was discussed and coordination of care occurred with RN, PT OBJECTIVE Vital Signs: Vitals monitored throughout session; within normal ranges. Outcome Measures: [facility] Inpatient Short Form: Putting on and taking [...] at or below 17 Clinicians answer the [facility] Inpatient Short Form based on observed patient [...] including figure four technique. Recommended adaptive equipment: Black Oxide Operator and Sock Aid. Toileting - Patient instructed [...] and modification tools as needed including leg flake or shred roll operator and/or bed adjustments. Bathroom DME: - Educated [...] in place draining clear yellow urine I/O ([id number]): Fifty-five cc serosanguineous from the drain 1 [...] locallyfor CBI. He was subsequently transferred to [facility] 08/12 for difficulty irrigating his [...] 2.5 mg BID eliquis initiated 08/15 per [facility] med curbside recs --transition from [...] have him follow up with his local manager mortgage Comorbidities: --history of DVT status post IVC [...] discussed with Dr. Venegas, chief urology resident observation assistant. Pager during business hours: [phone] Pager after hours: [phone] * Emeterio Buchanan P.T., D.P.T., [facility] - 08/24/2023 10:46 AM CDT Physical Therapy Inpatient Treatment SUBJECTIVE Patient's Name: Kalen Vega Referring/Attending Provider: Boubacar Brock M.D. Reason for Referral: Physical Therapy Evaluate and Treat History of Present Illness: Kalen Vega is a 83 y.o. male who was admitted to [facility] in [place] on 08/13/2023 for Hematuria [R31.9] Precautions Other [...] %, and O2flow: Room air Outcome Measures: -[facility] Inpatient Short Form: AM-[facility] Basic Mobility (V.2) How much [...] 3-5 steps with a railing?: A Lot -[facility] Basic Mobility (V.2) Raw Score: 17 AM-[facility] Basic Mobility (V.2) Standardized Score: [...] baseline. PT Goal #2: Patient will perform jvx-lo-uqtxh transfer with modified independence and least restrictive [...] Naseem Buchanan P.T., D.P.T., [facility] * Tayler Mckeon, PharmJonahDJonah, R.Ph. - 08/24/2023 10:00 AM CDT [...] Total Kcal/day: 1370 based on 84 % Garcia-Berthold Non-standard additives: K 80 mEq Phos 30 [...] magnesium, phosphorus tomorrow. #1 Hematuria Please page [facility] ([phone]) or [facility] ([phone]) Nutrition Support Service pager with questions. * [...] catheter in place draining light smith I/O ([id number]): Forty-two cc serosanguineous from the drain 2.2 [...] locallyfor CBI. He was subsequently transferred to [facility] 08/12 for difficulty irrigating his [...] have him follow up with his local manager mortgage Comorbidities: --history of DVT status post IVC [...] discussed with Dr. Venegas, chief urology resident observation assistant. Pager during business hours: [phone] Pager after hours: [phone] * Deanne Mike L.G.S.W., M.S.W. - 08/23/2023 11:25 AM CDT SUBJECTIVE Social Work spoke with [facility]. They cannot provide care home at this time. They can provide OT/PT [...] anticipated discharge date of 08/24/23-08/26/23. Referrals sent: [facility] (out of service area) [facility] ASSESSMENT / PLAN ASSESSMENT Patient has robust family support including a son living with him. PLAN Patient desires home health care through [facility]. Social Work will continue to follow to provide support. Social Work will continue to assist with discharge needs. Shorty Sun, M.S.W. 08/23/23 * Jazmine Benítez R.N., C.W.C.N. - 08/23/2023 11:10 AM CDT [facility] Wound RN consulted to assess [...] stent and hematuria who is transferred from [facility] ED with 3 days of hematuria and [...] None Unable to Measure Y *Wound Bed Closed;Harvest;Red Tissue Exposed None Odor None *Exudate Amount [...] 30 minutes > 30 minutes Ongoing management Nursing;Wound/systems software developer Partial head to toe skin assessment completed [...] nursing. They agree to the plan. The [facility] RN will sign-off. Please place a wound care consult for any new concerns. Electronically signed by: Jazmine Benítez R.N., C.W.C.N. 08/23/23 11:10 AM CDT * Emeterio Buchanan, P.T., D.P.T., [facility] - 08/23/2023 11:02 AM CDT Physical Therapy Inpatient Treatment SUBJECTIVE Patient's Name: Kalen Vega Referring/Attending Provider: Boubacar Brock M.D. Reason for Referral: Physical Therapy Evaluate and Treat History of Present Illness: Kalen Vega is a 83 y.o. male who was admitted to [facility] in [place] on 08/13/2023 for Hematuria [R31.9] Precautions Other [...] air Outcome Measures: AM-PAC Inpatient Short Form: -[facility] Basic Mobility (V.2) How much [...] 3-5 steps with a railing?: A Lot -[facility] Basic Mobility (V.2) Raw Score: 17 -[facility] Basic Mobility (V.2) Standardized Score: 39.67 Interpretation: Based on scoring guidelines using the raw score value: Those going to home had an average score at or above 18 Those going to facility had an average score at or below 17 Clinicians answer the -[facility] Inpatient Short Form based on [...] baseline. PT Goal #2: Patient will perform uwr-ok-obzyl transfer with modified independence and least restrictive [...] D.P.T., [facility] * Demarco Salazar Pharm.DJonah, R.Ph., [facility]PS - 08/23/2023 10:19 AM CDT [...] Total Kcal/day: 1370 based on 84 % Garcia-Berthold Non-standard additives: MAX chloride Thiamine 100 mg [...] magnesium, phosphorus tomorrow. #1 Hematuria Please page [facility] ([phone]) or [facility] ([phone]) Nutrition Support Service pager with questions. * Ivy Hernandez O.T. - 08/23/2023 8:30 AM CDT Occupational Therapy [facility] Inpatient Treatment SUBJECTIVE Patient's Name: Kalen Vega Referring/Attending Provider: Boubacar Brock M.D. Reason for Referral: Occupational Therapy Evaluation and Treatment History of Present Illness: Kalen Vega is a 83 y.o. male who was admitted to [facility] in [place] on 08/13/2023 for Hematuria [R31.9]. Precautions Other Precautions: Abdominal, fall precautions, monitor tachycardia and hypertension Pain Assessment: Pain not reported during session. Subjective Comments: Agreeable to therapy session. Team Communication: The patient's status was discussed and coordination of care occurred with RN, PT OBJECTIVE Vital Signs: Vitals monitored throughout session; within normal ranges. Outcome Measures: [facility] Inpatient Short Form: Putting on and taking [...] at or below 17 Clinicians answer the [facility] Inpatient Short Form based on observed patient [...] catheter in place draining clear yellow I/O ([id number]): 73 cc serosanguineous from the drain Seven [...] locallyfor CBI. 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 [facility] Summary: Diet: NPO, TPN Activity: Ad [...] discussed with Dr. Venegas, chief urology resident observation assistant. Pager during business hours: [phone] Pager after hours: [phone] * Chary Diamond M.A., O.T., BCP - [...] just [facility] would like referral sent there. Social Work sent referral. OBJECTIVE Patient is anticipated to remain at [place] for 3-5 days. Referrals sent: [facility] Health ASSESSMENT / PLAN ASSESSMENT Patient has robust family support including a son living with him. PLAN Patient desires home health care through [facility]. Social Work will continue to [...] 83 y.o. male who was admitted to [facility] in [place] on 08/13/2023 for Hematuria [R31.9] Precautions Other [...] hypotension or respiratory distress. . Outcome Measures: AM-[facility] Inpatient Short Form: AM-[facility] Basic Mobility (V.2) How much [...] 3-5 steps with a railing?: A Lot -[facility] Basic Mobility (V.2) Raw Score: 17 [facility] Basic Mobility (V.2) Standardized Score: 39.67 Interpretation: Based on scoring guidelines using the raw score value: Those going to home had an average score at or above 18 Those going to facility had an average score at or below 17 Clinicians answer the [facility] Inpatient Short Form based on observed patient [...] baseline. PT Goal #2: Patient will perform eun-so-otciy transfer with modified independence and least restrictive [...] * Demarco Salazar, Pharm.D., R.Ph., BCPS - 08/22/2023 10:57 AM [...] Total Kcal/day: 1370 based on 84 % Garcia-Berthold Non-standard additives: MAX chloride Thiamine 100 mg [...] place draining light smith colored urine I/O ([id number]): CBI on slow drip 75 cc serosanguineous [...] locallyfor CBI. He was subsequently transferred to [facility] 08/12 for difficulty irrigating his [...] have him follow up with his local manager mortgage Comorbidities: --history of DVT status post IVC [...] discussed with Dr. Venegas, chief urology resident observation assistant. Pager during business hours: [phone] Pager after hours: [phone] * Qamar Jim PharmDayday, R.Ph. - 08/21/2023 [...] place draining clear smith colored urine I/O ([id number]): 1800 cc urine output 75 cc serosanguineous [...] locallyfor CBI. He was subsequently transferred to [facility] 08/12 for difficulty irrigating his [...] have him follow up with his local manager mortgage Comorbidities: --history of DVT status post IVC [...] mL/hr Abx/Microbiology: Ceftriaxone Pain Control: Tylenol, oxycodone 10. Scheduled trospium Home Meds Resumed: Metoprolol, tamsulosin, rosuvastatin Held Home Meds: None Consults: TPN, IR Lizette Harvey M.D. 08/21/2023 Please page the Urology Chief Service with questions or concerns. Patient seen and discussed with Dr. Venegas, chief urology resident observation assistant. Pager during business hours: [phone] Pager after hours: [phone] * Lizette Harvey M.D. - 08/20/2023 8:08 [...] draining clear thin merlot colored urine I/O ([id number]): 240 cc p.o. intake 760 cc urine [...] locallyfor CBI. He was subsequently transferred to [facility] 08/12 for difficulty irrigating his [...] 2.5 mg BID eliquis initiated 08/15 per [facility] med curbside recs --transition from [...] have him follow up with his local manager mortgage Comorbidities: --history of DVT status post IVC [...] questions or concerns. Pager during business hours: [phone] Pager after hours: [phone] * Qamar Jim, PharmJonahDJonah, R.Ph. - 08/20/2023 7:46 AM CDT Images [...] AskMayoExpert. Qamar Jim Pharm.D., R.Ph. * Lisa Seaman N, O.T., [facility] - 08/19/2023 2:26 PM CDT Occupational Therapy Acute Hospital Inpatient Treatment SUBJECTIVE Patient's Name: Kalen Vega Referring/Attending Provider: Boubacar Brock M.D. Reason for Referral: Occupational Therapy Evaluation and Treatment History of Present Illness: Kalen Vega is a 83 y.o. male who was admitted to [facility] in [place] on 08/13/2023 for Hematuria [R31.9]. Precautions Other Precautions: Abdominal, fall precautions, monitor tachycardia and hypertension Pain Assessment: Pain not reported during session. Subjective Comments: Patient greeted in chair and agreeable to therapy session. Team Communication: The patient's status was discussed and coordination of care occurred with RN OBJECTIVE Vital Signs: Vitals monitored throughout session; within normal ranges. Outcome Measures: [facility] Inpatient Short Form: Putting on and taking [...] at or below 17 Clinicians answer the [facility] Inpatient Short Form based on observed patient [...] about patient's nutritional care please contact pager [phone] on weekdays or [phone] on weekends/holidays. NUTRITION ASSESSMENT: Mr. Vega is [...] care everywhere) ESTIMATED NEEDS: Total Calorie Needs: 6331-0715 calories/day Method to Estimate Energy Needs: kcal/kg [...] y.o. male who was admitted to [facility] on 08/13/2023 for Hematuria [R31.9] Precautions [...] mmHg O2: 96% Room air Outcome Measures: [facility] Inpatient Short Form: -[facility] Basic Mobility (V.2) How much [...] 3-5 steps with a railing?: A Little [facility] Basic Mobility (V.2) Raw Score: 18 [facility] Basic Mobility (V.2) Standardized Score: 41.05 Interpretation: Based on scoring guidelines using the raw score value: Those going to home had an average score at or above 18 Those going to facility had an average score at or below 17 Clinicians answer the [facility] Inpatient Short Form based on observed patient [...] Ongoing PT Goal #2: Patient will perform aca-cp-wqxxc transfer with modified independence and least restrictive [...] Scott Pina P.T., D.P.T. * Chance Cassidy PharmJonahDJonah, R.Ph. - 08/19/2023 9:28 AM CDT Images [...] in place draining clear pink urine I/O ([id number]): 370 p.o. intake 1 L urine output [...] locallyfor CBI. He was subsequently transferred to [facility] 08/12 for difficulty irrigating his [...] 2.5 mg BID eliquis initiated 08/15 per [facility] med curbside recs --transition from [...] have him follow up with his local manager mortgage Comorbidities: --history of DVT status post IVC [...] questions or concerns. Pager during business hours: [phone] Pager after hours: [phone] * Lisa Seaman, O.T., [facility] - 08/18/2023 11:15 AM CDT Occupational Therapy [facility] Inpatient Treatment SUBJECTIVE Patient's Name: Kalen Vega Referring/Attending Provider: Boubacar Brock M.D. Reason for Referral: Occupational Therapy Evaluation and Treatment History of Present Illness: Kalen Vega is a 83 y.o. male who was admitted to [facility] in [place] on 08/13/2023 for Hematuria [R31.9]. Precautions Other [...] pressure: 168/97 - nurse notified Outcome Measures: [facility] Inpatient Short Form: Putting on and taking [...] at or below 17 Clinicians answer the [facility] Inpatient Short Form based on observed patient [...] doffing over it last. Recommended adaptive equipment: Black Oxide Operator and Sock Aid. Patient was left in bedside chair, with nursing/BOOKMAKER MAP at end of session with call light [...] 83 y.o. male who was admitted to [facility] in [place] on 08/13/2023 for Hematuria [R31.9] Precautions Other [...] 3-5 steps with a railing?: A Little -[facility] Basic Mobility (V.2) Raw Score: 18 -[facility] Basic Mobility (V.2) Standardized Score: 41.05 Interpretation: Based on scoring guidelines using the raw score value: Those going to home had an average score at or above 18 Those going to facility had an average score at or below 17 Clinicians answer the [facility] Inpatient Short Form based on observed patient [...] following coordination of care occurred with the cable engineer outside plant/Caregiver Present: No Patient was left in bedside [...] Progressing PT Goal #2: Patient will perform fze-od-pfbvf transfer with modified independence and least restrictive [...] Scott Pina P.T., D.P.T. * Aziza Cortez, Phuc., R.Ph. - 08/18/2023 7:59 AM CDT Pharmacist [...] in place draining clear pink urine I/O ([id number]): 1.2 L p.o. intake 1 L urine [...] locallyfor CBI. He was subsequently transferred to [facility] 08/12 for difficulty irrigating his [...] diet later today follow up vascular medicine [facility] Summary: Diet: currently limited clears Activity: Ad kong DVT PPX: heparin drip GI PPX: Pantoprazole Bowel Regimen:N/A IVF: none Abx/Microbiology: Ceftriaxone Pain Control: Tylenol, oxycodone 08/18. Scheduled trospium Home Meds Resumed: Metoprolol, tamsulosin, rosuvastatin Held Home Meds: None Consults: None Paula Hernandez M.D. 08/18/2023 6:02 AM CDT Please page the Urology Chief Service with questions or concerns. Pager during business hours: [phone] Pager after hours: [phone] * Tayler Greenwood M.D., M.Ed. - 08/17/2023 [...] bladder surgery. Tayler Greenwood MD, MEd * AgherAlia montanez Pharm.D., R.Ph., BCPS - 08/17/2023 6:08 PM [...] the patient follow up with his primary manager mortgage at discharge we will which we will [...] at 08/14/2023 10:22 AM Per LDM from 11/10/23 to present No refill hx for Enzalutamide [...] MG) BY MOUTH DAILY * Chance Cassidy PharmPerla., R.Ph. - 08/17/2023 11:30 AM CDT Pharmacist [...] restart home enzalutamide today (own supply). Marie Karyn Cassidy, R.Ph. INPATIENT MED LIST: acetaminophen, 650 mg, [...] Ringer's Lactated Ringer's * Lisa Seaman, O.T., [facility] - 08/17/2023 10:47 AM CDT Occupational Therapy [facility] Inpatient Treatment SUBJECTIVE Patient's Name: Kalen Vega Referring/Attending Provider: Boubacar Brock M.D. Reason for Referral: Occupational Therapy Evaluation and Treatment History of Present Illness: Kalen Vega is a 83 y.o. male who was admitted to [facility] in [place] on 08/13/2023 for Hematuria [R31.9]. Precautions Other [...] at or below 17 Clinicians answer the [facility] Inpatient Short Form based on observed patient [...] in place draining clear pink urine I/O ([id number]): NG tube 200 cc Two hundred sixty-five [...] locallyfor CBI. He was subsequently transferred to [facility] 08/12 for difficulty irrigating his [...] questions or concerns. Pager during business hours: [phone] Pager after hours: [phone] * Audi De Luna P.T., D.P.T. - [...] in place draining clear pink urine I/O ([id number]): NG tube 200 cc Two hundred sixty-five [...] locallyfor CBI. He was subsequently transferred to [facility] 08/12 for difficulty irrigating his [...] need for both [facility] Summary: Diet: NPO Activity: Ad kong DVT PPX: Ashley heparin GI PPX: Pantoprazole Bowel Regimen:N/A IVF: LR 75 Abx/Microbiology: Ceftriaxone Pain Control: Tylenol, oxycodone 08/18. Scheduled trospium Home Meds Resumed: Metoprolol, tamsulosin, rosuvastatin Held Home Meds: None Consults: None Signed by: Paula Hernandez M.D. 08/16/2023 6:02 AM CDT Please page the Urology Chief Service with questions or concerns. Pager during business hours: [phone] Pager after hours: [phone] * Paula Hernandez M.D. - 08/15/2023 9:09 AM CDT PROGRESS NOTE: No events. AFVSS. Pain controlled. No flatus. No further emesis overnight. Abdomen more distended than yesterday but remained soft, tender to deep palpation only, no rebound. Twenty-four Citizen [place] Alcock three-way catheter remains off CBI, draining [...] for CBI. He was subsequently transferred to [facility] 08/12 for difficulty irrigating his [...] risks associated with surgery and anesthesia including [place], stroke, and VTE were also discussed. Finally, [...] above was discussed with Dr. Brock, urology political consultant on-call who is in agreement with [...] Family to bring his home enzalutamide from [place] Ivrin Franco Pharm.D., R.Ph. * Jakob De Paz M.D. - 08/14/2023 11:34 AM CDT PROGRESS NOTE: No events. AFVSS. Pain controlled. No flatus. Nauseous and had 2 episodes of emesis. Abdomen more distended than yesterday but remained soft, tender to deep palpation only, no rebound. Twenty-four Citizen [place] Alcock three-way catheter remains off CBI, draining [...] for CBI. He was subsequently transferred to [facility] 08/12 for difficulty irrigating his [...] above was discussed with Dr. Brock, urology political consultant on-call who is in agreement with [...] Patient discussed with Dr. Sylvester. Page CCM3 [id number] Carlos Alberto Henson M.D. PGY-1 CCM 3 [...] who have asked we place a 24 Citizen [place] 3-way urinary catheter pending evaluation. We will [...] on Xarelto #8 Hydronephrosis s/p stent Briefly, . Kalen Vega is a 83 y.o. male with past medical history remarkable for metastaticprostate cancer, prior DVT on anticoagulation with xarelto, CAD s/p PCI on plavix, radiation proctitis with recurrent rectal bleeding, hydronephrosis s/p stent and hematuria who is [facility] with 3 days of hematuria and [...] him to present to local hospital in [place]. OSH Course: His hemoglobin was in the [...] Insecurity: No Food Insecurity (02/16/2022) [facility] from [facility], [facility] Food Insecurity Worried About Running Out of Food in the Last Year: 1 Transportation Needs: No Transportation Needs (02/16/2022) [facility] Transportation Needs Lack of Transportation (Medical): 1 Housing Stability: Low Risk (02/16/2022) Received from [facility], [facility] Housing Stability Unable to Pay for Housing [...] Dr. Sylvester and Dr. Rodriguez. Page CCM3 [id number] Carlos Alberto Henson M.D. PGY-1 CCM 3 [...] As expected PRIMARY PROCEDURALIST FAY Cerna MD [phone] ASSISTANTS none COMPLICATIONS None. DRAINS None. IMPLANTS [...] peripheral vein targets. Ultrasound used for assessment: [employer] Fit Provider contacted (include name): Uro Surg [...] ABDOMEN INCISIONAL; Surgeon: Boubacar Brock M.D.; Location: T ROMB OR CYSTOSCOPY FLEXIBLE N/A 08/15/2023 Procedure: CYSTOSCOPY FLEXIBLE; Surgeon: Boubacar Brock M.D.; Location: RST ROMB OR EXPLORATORY LAPAROTOMY N/A 08/15/2023 Procedure: Palliative EXPLORATORY LAPAROTOMY, CYSTOTOMY CLOSURE, RIGHT URETERAL STENT EXCHANGE; Surgeon: Boubacar Brock M.D.; Location: [facility] ROMB OR FAMILY HISTORY No family [...] 14 -- AST U/L 25 -- Radiology: @[email or web address]@ Swallow Assessment: No data to display ASSESSMENT / PLAN #1 Hematuria ASSESSMENT Currently we are asked to visit with Mr. Vega for consideration of parenteral nutrition. Nutrition Needs: Height: 180 cm Admission Weight: 91.2 kg (08/13/2023) Current Weight: 90.2 kg BMI (Calculated): 27.8 kg/m?? Total Calorie Needs: 5867-7204 calories/day Method to Estimate Energy Needs: Garcia-Berthold ( ) Weight Used for Equation Calculations: [...] on electrolytes Please call NSS pager at [phone] at [facility] or [phone] at [facility] with any additional questions. * [...] values in this interval not displayed. Radiology: @[id number]@ Swallow Assessment: No data to display ASSESSMENT / PLAN #1 Hematuria ASSESSMENT Currently we are asked to visit with Mr. Vega for consideration of parenteral nutrition. Nutrition Needs: Height: 180 cm Admission Weight: 91.2 kg (08/13/2023) Current Weight: 90.2 kg BMI (Calculated): 27.8 kg/m?? Total Calorie Needs: 1833-8102 calories/day Method to Estimate Energy Needs: kcal/kg [...] on electrolytes Please call NSS pager at [phone] at [facility] or [phone] at [facility] with any additional questions. BILLING/CODING [...] stent along with other stents and apparently manager mortgage in the past I recommended indefinite dual [...] documented in the history of present illness. @[email or web address]@ OBJECTIVE Current Facility-Administered Medications: acetaminophen tablet 650 [...] R.Ph., Last Rate: 11.9 mL/hr at 08/18/23 08, 13Units/kg/hr at 08/18/23 08 Lactated Ringer's, 20 mL/hr, intravenous, Continuous, Frieda Garner APRN, BRAILLE TYPIST, Last Rate: 20 mL/hr at 08/15/23 1459, 20 mL/hr at 08/15/23 1459 lidocaine 5 % 1 patch (LIDODERM), 1 patch, transdermal, Daily, Carlos Alberto Henson M.D., 1 patch at 08/16/23 0828 metoprolol succinate 24 hr tablet 50 mg (TOPROL-XL), 50 mg, oral, Daily, Carlos Alberto Henson M.D., 50 mg at 08/18/23 08 naloxone injection 0.2 mg (NARCAN), 0.2 mg, [...] Alberto Henson M.D., 0.4 mg at 08/18/23 08 trospium tablet 20 mg (SANCTURA), 20 mg, [...] but he can discuss this with his manager mortgage at home. We need to balance transfusion needs for continued bleedingand risk of recurrent WY if not on Plavix-coronary stents were 6 [...] 83 y.o. male who was admitted to [facility] in [place] on 08/13/2023 for Hematuria [R31.9]. Relevant Medical History: Kalen Vega is a 83 y.o. 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 Outcome Measures: [facility] Inpatient Short Form: -[facility] Basic Mobility (V.2) How much [...] 3-5 steps with a railing?: A Lot -[facility] Basic Mobility (V.2) Raw Score: 17 -[facility] Basic Mobility (V.2) Standardized Score: 39.67 Interpretation: Based on scoring guidelines using the raw score value: Those going to home had an average score at or above 18 Those going to facility had an average score at or below 17 Clinicians answer the [facility] Inpatient Short Form based on observed patient [...] following coordination of care occurred with the cable engineer outside plant/Caregiver Present: Favio Alfaro Patient was left in [...] 83 y.o. male who was admitted to [facility] in [place] on 08/13/2023 for Hematuria with cystotomy and [...] Min assist for mobility. Required assist for [id number]-lc-[id number] for force generation and is generally standby [...] Ongoing PT Goal #2: Patient will perform qgy-xn-lqotz transfer with modified independence and least restrictive [...] Celestin Associated attestation - Fidencio Caban P.T., FadiP.T. - 08/17/2023 5:45 PM CDT This therapist has reviewed all documentation and supervised today???s session. The therapist agrees with the plan developed in collaboration with the patient. * Lisa Seaman O.T., MOT - 08/16/2023 10:01 AM CDT Occupational Therapy [facility] Inpatient Evaluation/Treatment SUBJECTIVE Patient's Name: Kalen Vega Referring/Attending Provider: Boubacar Brock M.D. Reason for Referral: Occupational Therapy Evaluation and Treatment PERTINENT MEDICAL / SURGICAL HISTORY: Kalen Vega has no past medical history on file. aKlen Vega has no past surgical history on file. History of Present Illness: Kalen Vega is a 83 y.o. male who was admitted to [facility] in [place] on 08/13/2023 for Hematuria [R31.9]. Relevant Medical [...] with RN, PT Family/Caregiver Present: Son and sketeqiw-cw-zyc. Home Living and Equipment: Lives with: Spouse/Significant [...] walker, Single point cane Adaptive Equipment Owned: Black Oxide Operator, Long Handled Shoe Horn Other DME Owned: Regular flat bed Prior Level of Function and Mobility: Basic Activities of Daily Living: Independent Instrumental Activities of Daily Living: Required Assistance: Laundry son assists with laundry and cooking Functional Mobility: Independent Driving: Yes Occupational Role: Retired Leisure Interests: watch movies, plays [place] train, meets friends for breakfast. Patient/Caregiver Goals: [...] Wears glasses all the time Outcome Measures: AM-[facility] Inpatient Short Form: Putting on [...] at or below 17 Clinicians answer the AM-[facility] Inpatient Short Form based on [...] Lisa Seaman O.T., MOT * Sivakumar Parham L.G.SJonahW., M.S.W. - 08/14/2023 9:59 AM CDTAssociated Order(s): IP CONSULT TO CARE MANAGEMENT Psychosocial Assessment SUBJECTIVE DEMOGRAPHIC INFORMATION Referral Source: Early Screen for Discharge Planning Referral Reason: Psychosocial Assessment and Discharge Planning Person(s) present during interview: Deangelo and patients sonFavio Previous Psychosocial Assessment : [...] all are a great support. 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 Patient expressed understanding and was [...] engaged in conversation with his family when home health care social worker entered the room. He was [...] locally at approximately 3:00 a.m. a 22 Citizen [place] three-way catheter was placed and CBI wasinitiated. Unfortunately he clotted off the catheter multiple times despite manual irrigations, started to develop hypotension and tachycardia [facility] He relays the [...] non-distended, non-peritonitic Extremities: No edema : 22 Citizen [place] three-way Tabares catheter draining a minimal amount [...] urinary retention Given his non draining 22 [place] three-way catheter the Urology techs and I subsequently exchanged this for a 24 Citizen [place] three-way Alcock in the usual sterile fashion. [...] to follow [place] [phone] with questions or concerns Sixto Cain M.D. [...] for upper GI prophylaxis. * Miko Shah RJonahNJonah - 08/20/2023 8:37 PM CDT No Viable [...] peripheral vein targets. Ultrasound used for assessment: Feedback Fit Provider contacted (include name): Uro Surg [...] or other central line. * Jose Haro MJonahSNarendra, R.N. - 08/14/2023 12:23 PM CDT Patient Transfer Note Patient transferred to: [facility] Room: [facility] Accompanied by: JAMEL Garcia Report called? YES [...] vital signs? YES * Sixto Teague R.R.T., L.R.T., APPRAISER AUDITOR-ACCS - 08/14/2023 7:00 AM CDT Patient is [...] in the last 24hours. 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 His existing 24 Citizen [place] three-way Tabares catheter was noted to be [...] additional tissue for additional coverage. A 24 Citizen [place] three-way catheter was placed with 15 cc in the balloon. This irrigated to light clear pink. A 15 Citizen [place] YARELI drain wasplaced into the pelvis exiting left lower quadrant. The fascia was closed with interrupted and [id number]-nr-ulehi 0 PDS. Fat was approximated using 3-0 [...] (-) -LR @ 75 cc/hr (08-15 - -) Please contact me if you have questions. Thank you, ELMER Barker, RN, CPN, CCDS, CCS, CRC Clinical Documentation Box Stamper Query created by: ELMER Barker, RN, CPN, [...] stent and hematuria who is transferred from [place] ED with 3 days of hematuria & [...] RN, CPN, CCDS, CCS, CRC Clinical Documentation Box Stamper Query created by: ELMER Barker, RN, CPN, [...] he felt completely obstructed and presented to [place] ED. [place] Course Attempted Tabares insertion but bladder irrigation was unsuccessful on multiple attempts. Hung 1U pRBC's. Given some volume and transferred to [facility] ICU ICU Course Urology consulted and [...] CDT Procedure visit Department of Urology in [place], [place] [address] [place] [address] Paula Hernandez M.D. [address] [place] [address] Pending Results Name Type Priority Associated Diagnoses [...] 08/26/2023 7:16 AM CDT STRM Testing Location [place] DEFAULT 08/26/2023 6:57 AM CDT STRM Blood (Blood, Venous) 08/26/2023 6:50 AM CDT 08/26/2023 6:57 AM CDT Narrative Authorizing Provider Result Abdifatah Hernandez M.D. LAB BLOOD BANK TEST ORDERABLES [facility] [address] [place] [address], [facility] STRM [facility] [address] [place] [address] * (ABNORMAL) CBC without Differential (08/26/2023 3:20 [...] CDT Corin Ring M.D. LAB BLOOD ADD-ON [facility] [address] [place] [address], [facility] [address] [place] [address] * Magnesium (08/26/2023 3:20 AM CDT) Pathologist [facility] Magnesium, S 2.1 1.7 - 2.3 mg/dL 08/26/2023 4:04 AM CDT DTL Blood (Blood, Venous) 08/26/2023 3:20 AM CDT 08/26/2023 3:50 AM CDT Boubacar Brock M.D. LAB BLOOD ADD-ON [facility] [address] [place] [address], [facility] DTL [facility] [address] [place] [address] * (ABNORMAL) Renal Function Panel (08/26/2023 3:20 [...] CDT Boubacar Brock M.D. LAB BLOOD ADD-ON [facility] [address] [place] [address], [facility] [address] [place] [address] * Heparin Anti-Xa Assay (08/26/2023 3:20 AM [...] Hoyt M.D. LAB BLOOD NON ADD -ON [facility] [address] [place] [address], [facility] [address] [place] [address] * (ABNORMAL) CBC without Differential (08/25/2023 3:24 [...] CDT Corin Ring M.D. LAB BLOOD ADD-ON [facility] [address] [place] [address], [facility] [address] [place] [address] * (ABNORMAL) Renal Function Panel (08/25/2023 3:24 [...] M.D. LAB BLOOD ADD-ON Performing Organization Address City/[facility]/ZIP Co de Phone Number [facility] [address] [place], [place] [address] [place] [address] * Magnesium (08/25/2023 3:24 AM CDT) Pathologist [facility] Magnesium, S 2.2 1.7 - 2.3 mg/dL 08/25/2023 4:36 AM CDT DTL Blood (Blood, Venous) 08/25/2023 3:24 AM CDT 08/25/2023 4:19 AM CDT Boubacar Brock M.D. LAB BLOOD ADD-ON Performing Organization Address City/[facility] Co de Phone Number [facility] [address] [place] [address], [address] [address] * Heparin Anti-Xa Assay (08/25/2023 3:24 AM [...] Boubacar Brock M.D. LAB BLOOD NON ADD-ON [facility] [address] [place] [address], [facility] [address] [place] [address] * (ABNORMAL) CBC without Differential (08/24/2023 5:28 AM CDT) Pathologist [facility] Hemoglobin 8.1(L) [...] M.D. LAB BLOOD ADD-ON Performing Organization Address City/[facility]/ZIP Co de Phone Number [facility] [address] [place] [address] * Magnesium (08/24/2023 5:28 AM CDT) Magnesium, S 2.3 1.7 - 2.3 mg/dL 08/24/2023 6:19 AM CDT DTL Blood (Blood, Venous) 08/24/2023 5:28 AM CDT 08/24/2023 6:00 AM CDT Boubacar Brock M.D. LAB BLOOD ADD-ON Performing Organization Address [facility] Co de Phone Number [facility] [address] [place] [address] * (ABNORMAL) Renal Function Panel (08/24/2023 5:28 [...] M.D. LAB BLOOD ADD-ON Performing Organization Address [facility] Co de Phone Number [address] [address], [facility] [place] [address] * Heparin Anti-Xa Assay (08/24/2023 5:28 AM [...] LAB BLOOD NON ADD-ON Performing Organization Address City/[facility]/ZIP Co de Phone Number [facility] [address] [place], [place] [phone] [place] [address] [address] [place] [address] * (ABNORMAL) Potassium (08/23/2023 9:58 PM CDT) Potassium, S 3.5(L) 3.6 - 5.2 mmol/L 08/23/2023 10:45 PM CDT DT Blood (Blood, Venous) 08/23/2023 9:58 PM CDT 08/23/2023 10:30 PM CDT Boubacar Brock M.D. LAB BLOOD ADD-ON Performing Organization Address City/[facility]/ZIP Co de Phone Number [facility] [address] [place], [place] [phone] [place] [address] [address] [place] [address] * (ABNORMAL) Phosphorus Inorganic (08/23/2023 9:58 PM CDT) Pathologist [facility] Phosphorus (Inorganic), S 2.1(L) 2.5 - 4.5 mg/dL 08/23/2023 10:45 PM CDT DT Blood (Blood, Venous) 08/23/2023 9:58 PM CDT 08/23/2023 10:30 PM CDT Paula Hernandez M.D. LAB BLOOD ADD-ON Performing Organization Address City/[facility]/ZIP Co de Phone Number [facility] [address] [place], [place] [address] [place] [address] [address] [place] [address] * Heparin Anti-Xa Assay (08/23/2023 11:37 AM CDT) Pathologist [facility] Heparin Anti-Xa, P 0.51 IU/mL 2023 [...] Boubacar Brock M.D. LAB BLOOD NON ADD-ON [address] [address], [facility] [address] [address] * (ABNORMAL) CBC without Differential (08/23/2023 3:42 AM CDT) [facility] Hemoglobin 8.3(L) 13.2 - 16.6 g/dL [...] CDT Corin Ring M.D. LAB BLOOD ADD-ON [facility] [address] [place], [place] [phone] [place] [address] [address] [place] [address] * Triglycerides (08/23/2023 3:42 AM CDT) Triglycerides [...] M.D. LAB BLOOD ADD-ON Performing Organization Address City/[facility] Co de Phone Number [facility] [address] [place], [place] [phone] [place] [address] [address] [place] [address] * Magnesium (08/23/2023 3:42 AM CDT) Magnesium, S 2.2 1.7 - 2.3 mg/dL 08/23/2023 4:50 AM CDT DTL Blood (Blood, Venous) 08/23/2023 3:42 AM CDT 08/23/2023 4:19 AM CDT Boubacar Brock M.D. LAB BLOOD ADD-ON [facility] [address] [place], [place] [address] [place] [address] [address] [place] [address] * (ABNORMAL) Renal Function Panel (08/23/2023 3:42 [...] CDT Boubacar Brock M.D. LAB BLOOD ADD-ON [facility] [address] [place] [address], [facility] [address] [place] [address] * Heparin Anti-Xa Assay (08/23/2023 3:41 AM [...] LAB BLOOD NON ADD-ON Performing Organization Address City/[facility]/ZIP Co de Phone Number [facility] [address] [place] [address], [facility] [address] [place] [address] * Glucose, POCT (08/22/2023 11:38 PM CDT) Pathologist [facility] Glucose, POCT, B 117 70 - 140 mg/dL 08/23/2023 1:06 AM CDT PCLX Site Capillary 08/23/2023 1:06 AM CDT PCLX Last Intake NPO 08/23/2023 1:06 AM CDT PCLX Blood 08/22/2023 11:3 8 PM CDT 08/23/2023 1:06 AM CDT Unknown Provider LAB POCT ORDERABLES- MANUAL Performing Organization Address City/[facility]/ZIP Co de Phone Number POC [facility] [address] [place] [address], [facility] PCLX [facility] POC [address] [place] [address] * Heparin Anti-Xa Assay (08/22/2023 10:14 PM [...] Boubacar Brock M.D. LAB BLOOD NON ADD-ON [address] [address], [facility] [place] [address] * CT Abdomen Pelvis without IV Contrast [...] Heparin Anti-Xa Assay (08/22/2023 3:43 PM CDT) Pathologist [facility] Heparin Anti-Xa, P 0.35 IU/mL 2023 4:46 [...] Boubacar Brock M.D. [place] [address], [facility] [place] [address] * Creatinine, Body Fluid (08/22/2023 3:30 PM CDT) [facility] Creatinine, BF 1.2 See Comment mg/dL 08/22/2023 [...] transport rates. All other fluids refer to www.iSECUREtracs.com for further interpretive information. This test has been modified from the tank stave assembler's instructions. Its performance characteristics were determined by [...] LAB BODY FLUIDS AND STOOLS ORDERABLES [facility] [address] [place] [address], [facility] [address] [place] [address] * Transfuse Red Blood Cells : (08/22/2023 [...] of a right IJ vein single-lumen 4 Citizen [place] tunneled PowerPICC ready for immediate use. NR [...] advanced into the IVC and a 4 Citizen [place] dilator advanced over the wire and attached to a one-way stopcock. A suitable exit site in the right anterior chest was anesthetized and a small incision made. A 4 Citizen [place] single-lumen PowerPICC was then tunneled from the [...] Wireadvanced into the IVC and a 4 Citizen [place] dilator advanced over the wire andattached to a one-way stopcock. A suitable exit site in the right anteriorchest was anesthetized and a small incision made. A 4 Citizen [place] single-lumen PowerPICC was then tunneled fromthe skin [...] of a right IJ vein single-lumen 4 Citizen [place] tunneled PowerPICCready for immediate use. NR Kimi Vieira M.D., M.S. IMG KESHIA P LULU * (ABNORMAL) CBC without Differential [...] M.D. LAB BLOOD ADD-ON Performing Organization Address City/[facility]/ZIP Co de Phone Number [facility] [address] [place] [address], [facility] STMA [facility] [address] [place] [address] * Type and Screen (with Reflex Antibody [...] BANK T EST ORDERABLES Performing Organization Address [facility] Co de Phone Number [facility] [address] [place] [address], [facility] STRM [facility] [address] [place] [address] * (ABNORMAL) Comprehensive Metabolic Panel (08/22/2023 2:40 [...] CDT Latisha Whitehead M.D. LAB BLOOD ADD-ON [facility] [address] [place] [address], [facility] [place] [address] [place] [address] * Heparin Anti-Xa Assay (08/22/2023 2:40 AM [...] Whitehead M.D. LAB BLOOD NON AD D-ON [facility] [address] [place] [address], [facility] [place] [address] [place] [address] * (ABNORMAL) APTT (Activated Partial Thromboplastin Time) (08/22/2023 2:40 AM CDT) Activated Partial Thrombopl Time, P 64(H) 25 - 37 sec 08/22/2023 3:12 AM CDT STMA Blood (Blood, Venous) 08/22/2023 2:40 AM CDT 08/22/2023 3:01 AM CDT Latisha Whitehead M.D. LAB BLOOD ADD-ON [facility] [address] [place] [address], [facility] [address] [place] [address] * Triglycerides (08/21/2023 7:32 AM CDT) Triglycerides [...] LAB BLOOD ADD-O N Performing Organization Address City/[facility]/ZIP Co de Phone Number [facility] [address] [place], [place] [address] [address] [place] [address] * Phosphorus Inorganic (08/21/2023 7:32 AM CDT) Pathologist [facility] Phosphorus (Inorganic), S 2.6 2.5 - 4.5 mg/dL 08/21/2023 9:03 AM CDT DTL Blood (Blood, Venous) 08/21/2023 7:32 AM CDT 08/21/2023 8:38 AM CDT Lizette Harvey M.D. LAB BLOOD ADD-O N Performing Organization Address City/[facility]/ZIP Co de Phone Number [facility] [address] [place], [place] [address] [place] [address] [address] [place] [address] * Magnesium (08/21/2023 7:32 AM CDT) Magnesium, S 2.3 1.7 - 2.3 mg/dL 08/21/2023 9:03 AM CDT DTL Blood (Blood, Venous) 08/21/2023 7:32 AM CDT 08/21/2023 8:38 AM CDT Lizette Harvey M.D. LAB BLOOD ADD-O N [facility] [address] [place] [address], [facility] DTL [facility] [address] [place] [address] * (ABNORMAL) Basic Metabolic Panel (08/21/2023 7:32 [...] LAB BLOOD ADD-O N Performing Organization Address City/[facility] Co de Phone Number [facility] [address] [place] [address], [facility] [place] [address] [place] [address] * (ABNORMAL) CBC without Differential (08/21/2023 7:32 AM CDT) Pathologist [facility] Hemoglobin 8.0(L) 13.2 - 16.6 g/dL 08/21/2023 [...] LAB BLOOD ADD-O N Performing Organization Address City/[facility]/ZIP Co de Phone Number [facility] [address] [place] [address], [facility] [place] [address] [place] [address] * Heparin Anti-Xa Assay (08/21/2023 7:32 AM CDT) Pathologist [facility] Heparin Anti-Xa, P 0.49 IU/mL 2023 8:31 [...] LAB BLOOD NON ADD-ON Performing Organization Address City/[facility]/ZIP Co de Phone Number [facility] [address] [place] [address] * (ABNORMAL) APTT (Activated Partial Thromboplastin Time) (08/21/2023 7:32 AM CDT) [facility] Activated Partial Thrombopl Time, P 49(H) 25 - 37 sec 08/21/2023 8:31 AM CDT DT Blood (Blood, Venous) 08/21/2023 7:32 AM CDT 08/21/2023 8:06 AM CDT Boubacar Brock M.D. LAB BLOOD ADD-ON [facility] [address] [place] [address] * Place peripherally inserted central catheter (PICC) [...] seen on same-day CT. Rightureteral stent. Lizette CHOUDHARY DIAGNOSTIC IMAGING PROCEDURES * CT Abdomen Pelvis [...] abdominal skin rayshawn. Pulmonary emphysema. Procedure Note Rual Vázquez M.D., M.S. - 08/26/2023 REVISED REPORT: [...] the atrophic right kidney. Lizette Harvey M.D. [facility] PROCEDUR ES * (ABNORMAL) Basic Metabolic Panel (08/20/2023 3:19 AM CDT) [facility] Potassium, S 3.7 3.6 - 5.2 [...] Paula Hernandez M.D. LAB BLOOD ADD-ON [facility] [address] [place] [address], [facility] [address] [place] [address] * (ABNORMAL) CBC without Differential (08/20/2023 3:19 [...] M.D. LAB BLOOD ADD-ON Performing Organization Address City/[facility]/ZIP Co de Phone Number [facility] [address] [place] [address] * (ABNORMAL) APTT (Activated Partial Thromboplastin Time) (08/20/2023 3:19 AM CDT) Activated Partial Thrombopl Time, P 52(H) 25 - 37 sec 08/20/2023 4:33 AM CDT DTL Blood (Blood, Venous) 08/20/2023 3:19 AM CDT 08/20/2023 4:10 AM CDT Boubacar Brock M.D. LAB BLOOD ADD-ON Performing Organization Address City/[facility] Co de Phone Number [facility] [address] [place] [address] * (ABNORMAL) APTT (Activated Partial Thromboplastin Time) (08/19/2023 10:57 AM CDT) Pathologist [facility] Activated Partial Thrombopl Time, P 54(H) 25 - 37 sec 08/19/2023 11:44 AM CDT DTL Blood (Blood, Venous) 08/19/2023 10:57 AM CDT 08/19/2023 11:26 AM CDT Boubacar Brock M.D. LAB BLOOD ADD-ON Performing Organization Address City/[facility]/ZIP Co de Phone Number [facility] [address] 200 [place] [address] * (ABNORMAL) APTT (Activated Partial Thromboplastin Time) (08/19/2023 4:51 AM CDT) Activated Partial Thrombopl Time, P 59(H) 25 - 37 sec 08/19/2023 5:53 AM CDT DTL Blood (Blood, Venous) 08/19/2023 4:51 AM CDT 08/19/2023 5:36 AM CDT Boubacar Brock M.D. LAB BLOOD ADD-ON Performing Organization Address City/[facility]/ZIP Co de Phone Number [facility] [address] [place], [place] [address] [place] [address] [address] [place] [address] * (ABNORMAL) APTT (Activated Partial Thromboplastin Time) (08/18/2023 10:03 PM CDT) Activated Partial Thrombopl Time, P 63(H) 25 - 37 sec 08/18/2023 10:41 PM CDT DTL Blood (Blood, Venous) 08/18/2023 10:03 PM CDT 08/18/2023 10:19 PM CDT Boubacar Brock M.D. LAB BLOOD ADD-ON Performing Organization Address City/[facility] Co de Phone Number [facility] [address] [place], [place] [address] [address] [place] [address] * (ABNORMAL) APTT (Activated Partial Thromboplastin Time) (08/18/2023 2:50 PM CDT) Activated Partial Thrombopl Time, P 64(H) 25 - 37 sec 08/18/2023 3:25 PM CDT DTL Blood (Blood, Venous) 08/18/2023 2:50 PM CDT 08/18/2023 3:07 PM CDT Boubacar Brock M.D. LAB BLOOD ADD-ON [facility] [address] [place], [place] [address] [address] [place] [address] * (ABNORMAL) APTT (Activated Partial Thromboplastin Time) (08/18/2023 6:42 AM CDT) Activated Partial Thrombopl Time, P 61(H) 25 - 37 sec 08/18/2023 7:28 AM CDT DTL Blood (Blood, Venous) 08/18/2023 6:42 AM CDT 08/18/2023 7:04 AM CDT Boubacar Brock M.D. LAB BLOOD ADD-ON [facility] [address] [place] [address], [facility] [place] [address] [place] [address] * (ABNORMAL) APTT (Activated Partial Thromboplastin Time) (08/17/2023 11:04 PM CDT) [facility] Activated Partial Thrombopl Time, P 40(H) 25 - 37 sec 08/17/2023 11:46 PM CDT DTL Blood (Blood, Venous) 08/17/2023 11:04 PM CDT 08/17/2023 11:31 PM CDT Boubacar Brock M.D. LAB BLOOD ADD-ON [facility] [address] [place] [address], [facility] [place] [address] [place] [address] * [place] Lower Extremity Veins Bilateral (08/17/2023 [...] and management can be found on the [facility] [place] site. Link [email or web address]/topic/clinical-answers/[email or web address] Findings discussed with ??Tayler Greenwood, ?? ([id number]) on 08/17/2023 7:11 PM. Procedure Note Jj [...] thrombosis and management can be found on theAskMaidioExpert site. [email or web address]/[email or web address] Findings discussed with Tayler Greenwood MD ([id number]) on 08/17/2023 7:11 PM. IMPRESSION: 1. Aging, [...] Paula Hernandez M.D. LAB BLOOD ADD-ON [facility] [address] [place] [address], [facility] [address] [place] [facility] [place] [address] * ECG 12 Lead (08/16/2023 9:43 PM CDT) Pathologist [facility] Ventricular Rate ECG/Min 134 BPM MUSE [place] Interval 136 ms MUSE QRSD Interval 76 ms MUSE QT Interval 298 ms MUSE QTC Interval 445 ms MUSE P [place] 29 degrees MUSE R [place] -6 degrees MUSE T Wave [place] 21 degrees MUSE 08/16/2023 9:43 PM CDT [...] CBC without Differential (08/16/2023 9:40 PM CDT) [facility] Hemoglobin 8.8(L) 13.2 - 16.6 g/dL [...] Geneva Azar M.D. LAB BLOOD ADD-ON [facility] [address] [place] [address], [facility] [address] [place] [address] * (ABNORMAL) Basic Metabolic Panel (08/16/2023 9:40 [...] Geneva Azar M.D. LAB BLOOD ADD-ON [facility] [address] [place] [address], [facility] DTL [facility] [address] [place] [address] * Transfuse Red Blood Cells : (08/16/2023 12:04 PM CDT) Corin Ring M.D. BLOOD TRANSFUSION OR DERABLES * Transfuse Red Blood Cells : , 1 Units (08/16/2023 12:04 PM CDT) Corin Ring M.D. BLOOD TRANSFUSION OR DERABLES * (ABNORMAL) Basic Metabolic Panel (08/16/2023 3:10 AM CDT) Pathologist [facility] Potassium, S 4.2 3.6 - 5.2 [...] M.D. LAB BLOOD ADD-ON Performing Organization Address [facility]/ZIP Co de Phone Number [facility] [address] DTL [facility] 200 [place] [address] * (ABNORMAL) CBC without Differential (08/16/2023 3:10 [...] Paula Hernandez M.D. LAB BLOOD ADD-ON [facility] [address] [place] [address], [facility] DTL [facility] [address] [place] [address] * (ABNORMAL) CBC with Differential, Blood (08/15/2023 3:58 PM CDT) [facility] Hemoglobin 9.0(L) 13.2 - 16.6 g/dL 08/15/2023 [...] Carlos Alberto Henson M.D. LAB BLOOD ADD-ON [facility] [address] [place] [address], [facility] DTL [facility] [address] [place] [address] [facility] 200 [place] [address] * DX Abdomen 1 View (08/15/2023 1:19 [...] 37.0 deg C 08/15/2023 12:04 PM CDT [facility] Blood 08/15/2023 11:5 6 AM CDT 08/15/2023 12:03 PM CDT Rae Gonzalez BRASS INSTRUMENT REPAIR TECHNICIAN, BRAILLE TYPIST, DNAP LAB BLOO D NON ADD-ON [facility] [address] [place] [address], [facility] [address] [place] [address] * Lactate, B - Intra-op (08/15/2023 11:56 AM CDT) Lactate, B 1.1 0.5 - 2.2 mmol/L 08/15/2023 12:06 PM CDT STMA Blood (Blood, Venous) 08/15/2023 11:56 AM CDT 08/15/2023 12:03 PM CDT Hayde Song M.D. LAB BLOOD NON ADD-O N [facility] [address] [place] [address] * (ABNORMAL) Glucose, Whole Blood (08/15/2023 11:56 AM CDT) Glucose 144(H) 70 - 140 mg/dL 08/15/2023 12:06 PM CDT STMA Blood (Blood, Arterial Line) 08/15/2023 11:56 AM CDT 08/15/2023 12:03 PM CDT Hayde Song M.D. LAB BLOOD ADD-ON Performing Organization Address City/[facility]/ZIP Co de Phone Number [facility] [address] [place], [place] [address] [place] [address] [address] [place] [address] * Potassium, Blood (08/15/2023 11:56 AM CDT) Potassium, B 4.3 3.6 - 5.2 mmol/L 08/15/2023 12:07 PM CDT STMA Blood (Blood, Arterial Line) 08/15/2023 11:56 AM CDT 08/15/2023 12:03 PM CDT Hayde Song M.D. LAB BLOOD NON ADD-O N [facility] [address] [place], [place] [address] [place] [address] [address] [place] [address] * Sodium, B (08/15/2023 11:56 AM CDT) Sodium, B 135 135 - 145 mmol/L 08/15/2023 12:06 PM CDT STMA Blood (Blood, Arterial Line) 08/15/2023 11:56 AM CDT 08/15/2023 12:03 PM CDT Hayde Song M.D. LAB BLOOD NON ADD-O N Performing Organization Address City/[facility]/ZIP Co de Phone Number [facility] [address] [place], [place] [address] [place] [address] [address] [place] [address] * (ABNORMAL) Calcium, Ionized (08/15/2023 11:56 AM CDT) Calcium, Ionized, B 4.53(L) 4.65 - 5.30 mg/dL 08/15/2023 12:07 PM CDT STMA Blood (Blood, Arterial Line) 08/15/2023 11:56 AM CDT 08/15/2023 12:03 PM CDT Hayde Song M.D. LAB BLOOD NON ADD-O N [facility] [address] [place], [place] [address] [place] [address] [address] [place] [address] * (ABNORMAL) Blood Gas with Coox, Arterial [...] Song M.D. [place] [address] * [place] Fluoro Less Than 1 Hour [...] 08/15/2023 10:28 AM CDT Rae Gonzalez APRN, CRNA, DNAP LAB BLOO D NON ADD-ON [facility] [address] [place] [address] * Lactate, B - Intra-op (08/15/2023 10:28 AM CDT) Lactate, B 1.1 0.5 - 2.2 mmol/L 08/15/2023 10:30 AM CDT [facility] Blood (Blood, Venous) 08/15/2023 10:28 AM CDT 08/15/2023 10:28 AM CDT Hayde Song M.D. LAB BLOOD NON ADD-O N [facility] [address] 200 [place] [address] * Glucose, Whole Blood (08/15/2023 10:28 AM CDT) Glucose 134 70 - 140 mg/dL 08/15/2023 10:30 AM CDT [facility] Blood (Blood, Arterial Line) 08/15/2023 10:28 AM CDT 08/15/2023 10:28 AM CDT Hayde Song M.D. LAB BLOOD ADD-ON [facility] [address] [place] [address] * Potassium, Blood (08/15/2023 10:28 AM CDT) Potassium, B 4.1 3.6 - 5.2 mmol/L 08/15/2023 10:31 AM CDT STMA Blood (Blood, Arterial Line) 08/15/2023 10:28 AM CDT 08/15/2023 10:28 AM CDT Narrative Authorizing Provider Result Abdifatah Song M.D. LAB BLOOD NON ADD-O N [facility] [address] [place] [address] * Sodium, B (08/15/2023 10:28 AM CDT) Sodium, B 135 135 - 145 mmol/L 08/15/2023 10:30 AM CDT STMA Blood (Blood, Arterial Line) 08/15/2023 10:28 AM CDT 08/15/2023 10:28 AM CDT Narrative Authorizing Provider Result Abdifatah Song M.D. LAB BLOOD NON ADD-O N Performing Organization Address City/[facility]/ZIP Co de Phone Number [facility] [address] [place] [address], [facility] [address] [place] [address] * (ABNORMAL) Calcium, Ionized (08/15/2023 10:28 AM CDT) Calcium, Ionized, B 4.25(L) 4.65 - 5.30 mg/dL 08/15/2023 10:31 AM CDT STMA Blood (Blood, Arterial Line) 08/15/2023 10:28 AM CDT 08/15/2023 10:28 AM CDT Narrative Authorizing Provider Result Abdifatah Song M.D. LAB BLOOD NON ADD-O N [facility] [address] [place] [address] [place] [address] * (ABNORMAL) Blood Gas with Coox, Arterial (08/15/2023 10:28 AM CDT) Pathologist [facility] pO2 171(H) 83 - 108 mm Hg [...] M.D. LAB BLOOD NON ADD-O N [facility] [address] [place] [address], [place] [facility] [address] [place] [address] * Bacteria / Yomaira Culture, Blood #2 (08/15/2023 3:33 AM CDT) Pathologist [facility] Bacteria/Leyla da Culture, Blood No growth after 5 days of incubation. 08/20/2023 6:02 AM CDT DTL Blood (Blood, Peripheral Draw) 08/15/2023 3:33 AM CDT 08/15/2023 5:58 AM CDT Comment:Specimen Source Site : Blood Narrative [facility] - 08/20/2023 6:02 AM CDT Received Bactec aerobic and Bactec anaerobic bottles Carlos Alberto Henson M.D. LAB [facility] ORDERABLES [facility] [address] [place] [address], [facility] DTL [facility] [address] [place] [address] * (ABNORMAL) Basic Metabolic Panel (08/15/2023 3:31 [...] M.D. LAB BLOOD ADD-ON Performing Organization Address [facility] Co de Phone Number [facility] [address] [place] [address] * Bacteria / Yomaira Culture, Blood #1 (08/15/2023 3:31 AM CDT) Pathologist [facility] Bacteria/Leyla da Culture, Blood No growth after 5 days of incubation. 08/20/2023 6:02 AM CDT DTL Blood (Blood, Peripheral Draw) 08/15/2023 3:31 AM CDT 08/15/2023 5:59 AM CDT Comment:Specimen Source Site : Blood Carlos Alberto Henson M.D. LAB MICROBIOLOGY - G ENERAL ORDERABLES Performing Organization Address [facility] Co de Phone Number [facility] [address] [place] [address] * (ABNORMAL) CBC with Differential, Blood (08/15/2023 3:30 AM CDT) Pathologist [facility] Hemoglobin 9.5(L) 13.2 - 16.6 g/dL [...] Carlos Alberto Henson M.D. LAB BLOOD ADD-ON [facility] [address] [place] [address], [facility] DTL [facility] [address] [place] [address] [address] * (ABNORMAL) CBC with Differential, Blood (08/14/2023 8:08 PM CDT) [facility] Hemoglobin 9.8(L) 13.2 - 16.6 g/dL [...] Carlos Alberto Henson M.D. LAB BLOOD ADD-ON [facility] [address] [place] [address], [facility] STMA [facility] [address] [place] [address] [facility] [address] [place] [address] * Transfuse Red Blood Cells : , [...] with Differential, Blood (08/14/2023 3:18 AM CDT) [facility] Hemoglobin 7.6(L) 13.2 - 16.6 g/dL [...] M.D. LAB BLOOD ADD-ON Performing Organization Address City/[facility]/ZIP Co de Phone Number [facility] [address] [place] [address], [place] STMA [facility] [address] [place] [address] [facility] [address] [place] [address] * (ABNORMAL) Basic Metabolic Panel (08/14/2023 3:18 AM CDT) [facility] Potassium, S 5.4(H) 3.6 - 5.2 [...] Carlos Alberto Henson M.D. LAB BLOOD ADD-ON [facility] [address] [place] [address], [facility] [address] [place] [address] * Type and Screen (with Reflex Antibody [...] BLOOD BANK TEST ORDERABLES Performing Organization Address [facility] Co de Phone Number [facility] [address] [place] [address], [facility] [address] [place] [address] * (ABNORMAL) Bacteria / Yomaira Culture, Blood #1 (08/13/2023 7:35 PM CDT) [facility] Bacteria/Cand jessica Culture, Blood ESCHERICHIA COLI Growth after 11 Hours (A) 08/16/2023 11:17 AM CDT DTL Comment: 3 of 3 Bottles, Susceptibilities performed on another specimen [id number] Blood (Blood, Peripheral Draw) 08/13/2023 7:35 PM CDT 08/13/2023 8:15 PM CDT Comment:Specimen Source Site : Blood Carlos Alberto Henson M.D. LAB MICROBIOLOGY - G ENERAL ORDERABLES Performing Organization Address City/[facility]/ZIP Co de Phone Number [facility] [address] [place] [address], [facility] [address] [place] [id number] * ECG 12 Lead (08/13/2023 7:02 PM CDT) Ventricular Rate ECG/Min 128 BPM MUSE [place] Interval 138 ms MUSE QRSD Interval 64 ms MUSE QT Interval 304 ms MUSE QTC Interval 443 ms MUSE P [place] 45 degrees MUSE R [place] 34 degrees MUSE T Wave [place] 46 degrees MUSE 08/13/2023 7:02 PM CDT [...] CDT Comment:Specimen Source Site : Blood Narrative [facility] - 08/16/2023 11:17 AM CDT Received [...] Carlos Alberto Henson M.D. LAB MICROBIOLOGY - [facility] ORDERABLES [facility] [address] [place] [address], [facility] [address] [place] [address] * Magnesium (08/13/2023 5:27 PM CDT) [facility] Magnesium, S 1.9 1.7 - 2.3 mg/dL 08/13/2023 6:12 PM CDT DTL Blood (Blood, Venous) 08/13/2023 5:27 PM CDT 08/13/2023 5:58 PM CDT Carlos Alberto Henson M.D. LAB BLOOD ADD-ON [facility] [address] [place] [address], [address] [address] * (ABNORMAL) Hepatic Function Panel (08/13/2023 5:27 [...] Carlos Alberto Henson M.D. LAB BLOOD ADD-ON [facility] [address] [place] [address], [facility] [place] [address] [place] [address] * (ABNORMAL) Basic Metabolic Panel (08/13/2023 5:27 [...] Carlos Alberto Henson M.D. LAB BLOOD ADD-ON [facility] [address] [place] [address], [facility] [address] [place] [address] * Prothrombin Time (PT) (08/13/2023 5:27 PM [...] Carlos Alberto Henson M.D. LAB BLOOD ADD-ON [facility] [address] [place] [address], [facility] [address] [place] [address] * (ABNORMAL) CBC with Differential, Blood (08/13/2023 [...] Carlos Alberto Henson M.D. LAB BLOOD ADD-ON [facility] [address] [place] [address], [facility] STMA [facility] [address] [place] [address] [facility] [address] [place] [address] * (ABNORMAL) Dipstick, Urine (08/13/2023 5:07 PM [...] Carlos Alberto Henson M.D. LAB URINE ORDERABLES [facility] [address] [place] [address], [place] DTL [facility] [address] [place] [address] * Osmolality, Urine (08/13/2023 5:07 PM CDT) Pathologist [facility] Osmolality, U 351 150 - 1150 mOsm/kg 08/13/2023 7:46 PM CDT DTL Urine 08/13/2023 5:07 PM CDT 08/13/2023 5:45 PM CDT Carlos Alberto Henson M.D. LAB URINE ORDERABLES Performing Organization Address [facility] Co de Phone Number [facility] [address] [place], [place] [id number] [place] [address] [address] [place] [address] * (ABNORMAL) Microscopic Manual (08/13/2023 5:07 PM CDT) Pathologist [facility] Microscopy Abnormal 08/13/2023 7:57 PM CDT DTL RBC >100(A) <3 /hpf 08/13/2023 7:57 PM CDT DTL Dysmorphic RBC <25 <25 % 08/13/2023 7:57 PM CDT DTL WBC 51-100(A) /hpf 08/13/2023 7:57 PM CDT DTL Comment: ----REFERENCE VALUE---- <4 ??(Males) <11 (Females) Urine 08/13/2023 5:07 PM CDT 08/13/2023 5:45 PM CDT Carlos Alberto Henson M.D. LAB URINE ORDERABLES Performing Organization Address City/[facility] Co de Phone Number [facility] [address] [place] [address], [facility] [address] [place] [address] * pH, Random, Urine (08/13/2023 5:07 PM CDT) Pathologist [facility] pH, Random, U 7.0 4.5 - 8.0 08/13/2023 7:46 PM CDT DTL Urine 08/13/2023 5:07 PM CDT 08/13/2023 5:45 PM CDT Carlos Alberto Henson M.D. LAB URINE ORDERABLES [facility] [address] [place] [address], [place] [facility] [address] [place] [address] * (ABNORMAL) Bacterial Culture, Aerobic + Susceptibility, [...] Carlos Alberto Henson M.D. LAB MICROBIOLOGY - [facility] ORDERABLES [address] [address], [facility] [address] [address] * (ABNORMAL) Urinalysis, with Microscopic: Urine, Midstream [...] CDT DTL Predicted 24 [place] [id number](H) <229 mg/24 h 08/13/2023 8:50 PM CDT DTL Predicted Range [id number] mg/24 h 08/13/2023 8:50 PM CDT DTL Comment Micro done on <2.5 mL 08/13/2023 7:55 PM CDT DTL Urine (Urine, Midstream) 08/13/2023 5:07 PM CDT 08/13/2023 5:44 PM CDT Carlos Alberto Henson M.D. LAB URINE ORDERABLES [facility] [address] [place] [address], [facility] [address] [place] [address] * Interpretation of Outside CT Abdomen and [...] PM CDT 100 mL/hr 100 mL/hr New 08/21/2023 8:54 AM CDT 100 mL/hr 100 [...] use home supply. 08/17/23: Id'ed by [facility] [place] [id number], filled 07/22/23. HAZARDOUS - Handle with care. Swallow whole. Do NOT crush, chew or open capsule. Given 08/26/2023 9:12 AM CDT 120 mg Given 08/25/2023 9:08 AM CDT 120 mg Given 08/24/2023 9:12 AM CDT 120 mg fat emulsion [id number]-[id number] & fish oil infusion 50 g (SMOFlipid) [...] 6 hours after Heparin resumed, Anti-Xa > 0.9: Hold Infusion: Stop infusion for 2 hours, Anti-Xa > 0.9: Adjust Dose (Units/kg/hr): -4, Anti-Xa > 0.9: Repeat anti-Xa: Repeat antiXa: 6 hours after [...] Lactated Ringer's 1.5 mL/kg/hr ? 75 kg Streeter weight (112.5 mL/hr, rounded to 113 mL/hr), intravenous, Continuous, Starting on Tue08/22/23 at 1030, Conditional Phase Pre-Gastrografin Administration. (Rate = 1.5 mL/kg/hr ideal body weight) Lactated Ringer's 0.75 mL/kg/hr ? 75 kg Streeter weight (56.25 mL/hr, rounded to 56.3 mL/hr), [...] 1:13 PM CDT 10 mEq 100 mL/hr Bag 08/22/2023 12:11 PM CDT 10 mEq [...] Monitor the following for replacement: Phosphorus New 08/23/2023 8:05 AM CDT 30 mmol 116 [...] Howe R.N.)1242 (Given - Provider: Tayler Forrest R.Mari.)1831 (Given - Provider: Mary Rosado RJonahNJonah) 0019 (Not Given - Provider: Fatuma See R.N. - Reason: Patient/family refused)0639 (Given - Provider: Fatuma See R.Mari.)1136 (Given - Provider: Tayler Forrest R.N.)1750 (Not Given - Provider: Antonia Salazar RJonahNJonah - Reason: Patient/family refused)2349 (Not Given - Provider: Eidth Simental RJonahNJonah - Reason: Patient/family refused) 0624 (Given - Provider: Edith Simental RNarendra)1244 (Not Given - Provider: Zinelson Valdez R.N. - Reason: Patient/family refused) bisacodyL [...] R.N.) 0627 (Given - Provider: Edith Simental RJonahNJonah)1600 [...] use home supply. 08/17/23: Id'ed by [facility] [place] [id number], filled 07/22/23. HAZARDOUS - Handle with care. Swallow whole. Do NOT crush, chew or open capsule. 09 (Given - Provider: Tayler Forrest R.N. - Comment: Pat Murray, -2nd RN) 907 (Given - Provider: Tayler Forrest R.N. - Comment: Pt 's own med from home) 911 (Given - Provider: Lupe Valdez R.N.) fat emulsion dqy-naf-mpgst & fish oil infusion 50 g (SMOFlipid) [...] R.N. - Comment: verified by Antonia Salazar, JAMEL)2127 (Stopped - Provider: Antonia Salazar R.N.) lidocaine 5 % 1 patch (LIDODERM) 1 patch, transdermal, Administer over 12 Hours, Daily, First dose on Tue08/14/23 at 0900, Remove after 12 hours. 0858 (Not Given - Provider: Tayler Forrest R.N. - Reason: Patient/family refused) 0852 (Not Given - Provider: Tayler Forrest R.N. - Reason: Patient/family refused) 09 (Not Given - Provider: Lupe Valdez R.N. [...] See R.N.)1749 (Given - Provider: Antonia Salazar R.NJonah) 0626 (Given - Provider: Edith Simental RJonahNJonah)1600 [...] 6 hours after Heparin resumed, Anti-Xa > 0.9: Hold Infusion: Stop infusion for 2 hours, Anti-Xa > 0.9: Adjust Dose (Units/kg/hr): -4, Anti-Xa > 0.9: Repeat anti-Xa: Repeat antiXa: 6 hours after [...] - Provider: Edith Simental R.N. - Comment: yang/ antonia MCCULLOUGH) 0407 (Rate/Dose Change - Provider: Edith Simental R.N.)0729 (Handoff - Provider: Lupe Valdez R.N. - Comment: Verified with JAMEL Sharma)1153 (Stopped - Provider: Lupe Valdez R.N.) Lactated Ringer's 1.5 mL/kg/hr ? 75 kg Streeter weight (112.5 mL/hr, rounded to 113 mL/hr), intravenous, Continuous, Starting on Tue08/22/23 at 1030, Conditional Phase Pre-Gastrografin Administration. (Rate = 1.5 mL/kg/hr ideal body weight) Lactated Ringer's 0.75 mL/kg/hr ? 75 kg Streeter weight (56.25 mL/hr, rounded to 56.3 mL/hr), [...] 1547 documented in this encounter Care Teams [employer] Furn[employer] Rep[employer]cer Relationship Specialty Start Date End Date Elsewhere, Pcp PCP - General Internal Medicine 08/13/23 documented as of this encounter
--- OUTSIDE RECORDS SUMMARY | 2023-09-23 12:49 | XMS_ITS | Encounter Summary ---
Author Organization [facility] Address [address] [place] [address] Care Team Providers Care Direct Sales Professional Name Role Phone Elsewhere, Pcp Primary Care Provider Unavailabl e Encounter Details Date Type Department Care Team (Late st Contact Info) Description 08/13/2023 4:35 PM CDT Ancillary Procedure Department of Radiology in [place], [place] [address] [place] [address] Carlos Alberto Henson M.D. [address] [place] [address] Social History Tobacco Use Types Packs/Day Years Used Date Smoking Tobacco: Never Smokeless Tobacco: Never [facility] Utilities Answer Date Recorded In the past 12 months has [facility] [employer], gas, oil, or water [employer] threatened to shut off services in your [...] your living situation today? I have a [facility] place to live 08/13/2023 Sex and Gender Information Value Date Recorded Sex Assigned at Not on file Gender Identity Not on file Sexual Orientation Not on file documented as of this encounter Plan of Treatment Upcoming Encounters Date Type Department Care Team (Late st Contact Info) Description 10/14/2023 1:00 PM CDT Procedure visit Department of Urology in [place], [place] [address] [place] [address] Paula Hernandez M.D. [address] [place] [address] documented as of this encounter Procedures Procedure [...] on filedocumented in this encounter Care Teams Direct Sales Professional Relationship Specialty Start Date End Date Elsewhere, Pcp PCP - General Internal Medicine 08/13/23 documented as of this encounter
--- OUTSIDE RECORDS SUMMARY | 2023-09-23 12:49 | XMS_ITS | Encounter Summary ---
Author Organization [facility] Address [address] [place] [address] Care Team Providers Care Stakeholder Manager Name Role Phone Elsewhere, Pcp Primary Care Provider Unavailabl e Encounter Details Date Type Department Care Team (Late st Contact Info) Description 08/15/2023 7:55 AM CDT - 08/15/2023 11:23 AM CDT Surgery RST ROMB MAIN OR [address] [place] [address] Boubacar Brock M.D. [address] [place] [address] [phone] Palliative EXPLORATORY LAPAROTOMY, CYSTOTOMY CLOSURE, RIGHT URETERAL STENT EXCHANGE Social History Tobacco Use Types Packs/Day Years Used Date Smoking Tobacco: Never Smokeless Tobacco: Never [facility] Utilities Answer Date Recorded In the past 12 months has [facility] [employer], gas, oil, or water [employer] threatened to shut off services in your [...] AM CDT DISCHARGE SUMMARY BRIEF OVERVIEW Hospital: [facility] Discharge Provider: Boubacar Brock M.D. Primary Team: [facility] Urology Surgery - Chief Helga [...] M.D.Wen, Lexiaochuan, M.D.Premo, Hayley, M.D.Botkin, Hannah, M.D. [facility] ROMB OR DISCHARGE DISPOSITION Home or Self Care [1] ACTIVE ISSUES REQUIRING FOLLOW UP OUTPATIENT FOLLOW UP Scheduled Appointments 08/26/2023 1:00 [facility] Radiology For appointment details refer [...] he felt completely obstructed and presented to [facility]. [facility] Course Attempted Tabares insertion but bladder irrigation was unsuccessful on multiple attempts. Hung 1U pRBC's. Given some volume and transferred to [facility] ICU ICU Course Urology consulted and were [...] CONSULT TO NUTRITION SUPPORT IP CONSULT TO FISH BAIT PICKER WOUND CARE CONDITION AT DISCHARGE stable Discharge [...] he felt completely obstructed and presented to [facility]. [facility] Course Attempted Tabares insertion but bladder irrigation was unsuccessful on multiple attempts. Hung 1U pRBC's. Given some volume and transferred to [facility] ICU ICU Course Urology consulted and were [...] Care Everywhere. * Bacitracin (On the skin) (Ethiopian) * Cefdinir (By mouth) (Ethiopian) * Trospium (By mouth) (Ethiopian) documented in this encounter Medications at Time [...] Progress Notes * Emeterio Buchanan P.T., D.P.T., [facility] - 08/26/2023 4:27 PM CDT 08/26/23 1627 [...] 83 y.o. male who was admitted to [facility] in [place] on 08/13/2023 for Hematuria [R31.9]. Precautions Other Precautions: Abdominal, fall precautions, monitor tachycardia and hypertension Pain Assessment: Pain not reported during session. Subjective Comments: Agreeable to therapy session. Team Communication: The patient's status was discussed and coordination of care occurred with RN, Family/Caregiver, nurse tech Family/Caregiver Present: son and [id number]-cov OBJECTIVE Vital Signs: Vitals not formally assessed during session. No concerns during chart review and the patient had nosigns or symptoms consistent with vital changes during therapy session. Outcome Measures: [facility] Inpatient Short Form: Putting on and taking [...] at or below 17 Clinicians answer the [facility] Inpatient Short Form based on observed patient [...] through pant leg first. - Adaptive Equipment: Dam Operator TOILETING - Assist Level: Maximal Assist [...] (Edge of bed) - Assist Level: Modified Collin - Equipment: bed rail - Therapist Delivery: assessed, instructed, assisted - Adaptive Equipment: leg patient attendant trialed ; however, patient able to move [...] extremity (stiff knee) first. Recommended adaptive equipment: Dam Operator. Toileting - Patient instructed on accurate [...] maximal exertion Handouts provided: Bathroom Safety Equipment [id number], Techniques to Help You Save Energy [id number] Patient was left in bedside chair with [...] health care OBJECTIVE Patient is admitted in [place] 6C -room 121 ASSESSMENT / PLAN AMMUNITION AND EXPLOSIVES HANDLERlottery manager met with patient and son Kar to inform them of home health care acceptance for PT/OT. Patient's son Kar and urbhfura-uf-gia will provide transportation at the time of discharge. PLAN Patient to discharge home with home health care. Home Medical Care - Admitted Since 08/13/2023 Service Provider Selected Services Address Phone Fax Patient Preferred [facility] [address] [facility] [phone] -- Can Slider: Ghazal NURSING: - Complete documentation in the Discharge Navigator including Nursing Report Info and Facility/NextLevel of Care Info - Call report and arrange for the patient's first visit - Send After Visit Summary and required packet of dismissal information with patient, including advance directive. PRIMARY SERVICE: - Please provide a non-[place] home health order for: physical therapy and [...] be provided by family--patient's son Kar and wbibqdte-[id number]. 3. typer recommended reaching out to family, friends, and neighbors for assistance. 4. typer provided information regarding the dismissal process. Damaris [...] Reviewed with patient #1 Hematuria Please page [facility] ([phone]) or [facility] ([phone]) Nutrition Support Service pager with questions. * Emeterio Buchanan PCarlos, D.P.T., [facility] - 08/25/2023 9:35 AM CDT Physical Therapy Inpatient Treatment SUBJECTIVE Patient's Name: Kalen Craig Vega Referring/Attending Provider: Boubacar Brock M.D. Reason for Referral: Physical Therapy Evaluate and Treat History of Present Illness: Kalen Vega is a 83 y.o. male who was admitted to [facility] in [place] on 08/13/2023 for Hematuria [R31.9] Precautions Other [...] throughout session; within normal ranges. Outcome Measures: [facility] Inpatient Short Form: -[facility] Basic Mobility (V.2) How much help [...] 3-5 steps with a railing?: A Little -[facility] Basic Mobility (V.2) Raw Score: 18 -[facility] Basic Mobility (V.2) Standardized Score: 41.05 Interpretation: Based on scoring guidelines using the raw score value: Those going to home had an average score at or above 18 Those going to facility had an average score at or below 17 Clinicians answer the [facility] Inpatient Short Form based on observed patient activity and/or clinical judgement (ie. patient can be scored without physically performing each activity) Therapeutic Interventions: SIT TO STAND x3: Assistance Level: Supervision static safe house fit with adult there which they usually [facility] with a difference educated fully know who [...] - 08/25/2023 9:18 AM CDT Occupational Therapy [facility] Inpatient Treatment SUBJECTIVE Patient's Name: Kalen Vega Referring/Attending Provider: Boubacar Brock M.D. Reason for Referral: Occupational Therapy Evaluation and Treatment History of Present Illness: Kalen Vega is a 83 y.o. male who was admitted to [facility] in [place] on 08/13/2023 for Hematuria [R31.9]. Precautions Other Precautions: Abdominal, fall precautions, monitor tachycardia and hypertension Pain Assessment: Pain not reported during session. Subjective Comments: Agreeable to therapy session. Team Communication: The patient's status was discussed and coordination of care occurred with RN, PT OBJECTIVE Vital Signs: Vitals monitored throughout session; within normal ranges. Outcome Measures: [facility] Inpatient Short Form: Putting on and taking [...] at or below 17 Clinicians answer the [facility] Inpatient Short Form based on observed patient [...] including figure four technique. Recommended adaptive equipment: Dam Operator and Sock Aid. Toileting - Patient [...] and modification tools as needed including leg patient attendant and/or bed adjustments. Bathroom DME: - Educated [...] in place draining clear yellow urine I/O ([id number]): Fifty-five cc serosanguineous from the drain 1 [...] CBI. He was subsequently transferred to [facility] 08/12 for difficulty irrigating his catheter [...] 2.5 mg BID eliquis initiated 08/15 per [facility] med curbside recs --transition from eliquis [...] have him follow up with his local environmental services assistant Comorbidities: --history of DVT status post IVC [...] discussed with Dr. Venegas, chief urology resident transfer iron operator. Pager during business hours: [phone] Pager after hours: [phone] * Emeterio Buchanan P.Maira., D.P.T., [facility] - 08/24/2023 10:46 AM CDT Physical Therapy Inpatient Treatment SUBJECTIVE Patient's Name: Kalen Vega Referring/Attending Provider: Boubacar Brock M.D. Reason for Referral: Physical Therapy Evaluate and Treat History of Present Illness: Kalen Vega is a 83 y.o. male who was admitted to [facility] in [place] on 08/13/2023 for Hematuria [R31.9] Precautions Other [...] %, and O2flow: Room air Outcome Measures: [facility] Inpatient Short Form: -[facility] Basic Mobility (V.2) How much help [...] 3-5 steps with a railing?: A Lot -[facility] Basic Mobility (V.2) Raw Score: 17 -[facility] Basic Mobility (V.2) Standardized Score: 39.67 Interpretation: Based on scoring guidelines using the raw score value: Those going to home had an average score at or above 18 Those going to facility had an average score at or below 17 Clinicians answer the [facility] Inpatient Short Form based on observed patient [...] baseline. PT Goal #2: Patient will perform rlu-eh-ntogi transfer with modified independence and least restrictive [...] stent exchange 08/14, R DVT on LEUS 58 PM - unclear if acute or chronic [...] Total Kcal/day: 1370 based on 84 % Garcia-Alturas Non-standard additives: K 80 mEq Phos 30 [...] magnesium, phosphorus tomorrow. #1 Hematuria Please page [facility] ([phone]) or [facility] ([phone]) Nutrition Support Service pager with questions. * [...] catheter in place draining light smith I/O ([id number]): Forty-two cc serosanguineous from the drain 2.2 [...] CBI. He was subsequently transferred to [facility] 08/12 for difficulty irrigating his catheter [...] have him follow up with his local environmental services assistant Comorbidities: --history of DVT status post IVC [...] discussed with Dr. Venegas, chief urology resident transfer iron operator. Pager during business hours: [phone] Pager after hours: [phone] * Deanne Mike L.G.STimi, M.S.W. - 08/23/2023 11:25 AM CDT SUBJECTIVE Social Work spoke with [facility]. They cannot provide alf at this time. They can provide OT/PT [...] anticipated discharge date of 08/24/23-08/26/23. Referrals sent: [facility] - [facility] (out of service area) [facility] ASSESSMENT / PLAN ASSESSMENT Patient has robust family support including a son living with him. PLAN Patient desires home health care through [facility]. Social Work will continue to follow to provide support. Social Work will continue to assist with discharge needs. Shorty Sun, M.S.W. 08/23/23 * Jazmine Benítez R.N., C.W.C.N. - 08/23/2023 11:10 AM CDT [facility] Wound RN consulted to assess [...] stent and hematuria who is transferred from [facility] ED with 3 days of hematuria and [...] None Unable to Measure Y *Wound Bed Closed;Mobile;Red Tissue Exposed None Odor None *Exudate Amount [...] 30 minutes > 30 minutes Ongoing management Nursing;Wound/machining engineer Partial head to toe skin assessment completed [...] Oralia 08/23/23 11:10 AM CDT * Emeterio Buchanan, P.T., D.P.T., [facility] - 08/23/2023 11:02 AM CDT Physical Therapy Inpatient Treatment SUBJECTIVE Patient's Name: Kalen Vega Referring/Attending Provider: Boubacar Brock M.D. Reason for Referral: Physical Therapy Evaluate and Treat History of Present Illness: Kalen Vega is a 83 y.o. male who was admitted to [facility] in [place] on 08/13/2023 for Hematuria [R31.9] Precautions Other [...] 3-5 steps with a railing?: A Lot -[facility] Basic Mobility (V.2) Raw Score: 17 -[facility] Basic Mobility (V.2) Standardized Score: 39.67 Interpretation: Based on scoring guidelines using the raw score value: Those going to home had an average score at or above 18 Those going to facility had an average score at or below 17 Clinicians answer the [facility] Inpatient Short Form based on observed patient [...] baseline. PT Goal #2: Patient will perform phs-gb-biuej transfer with modified independence and least restrictive [...] Total Kcal/day: 1370 based on 84 % Garcia-Alturas Non-standard additives: MAX chloride Thiamine 100 mg [...] magnesium, phosphorus tomorrow. #1 Hematuria Please page [facility] ([phone]) or [facility] ([phone]) Nutrition Support Service pager with questions. * Ivy Hernandez OMarlon. - 08/23/2023 8:30 AM CDT Occupational Therapy [facility]patient Treatment SUBJECTIVE Patient's Name: Kalen Vega Referring/Attending Provider: Boubacar Brock M.D. Reason for Referral: Occupational Therapy Evaluation and Treatment History of Present Illness: Kalen Vega is a 83 y.o. male who was admitted to [facility] in [place] on 08/13/2023 for Hematuria [R31.9]. Precautions Other Precautions: Abdominal, fall precautions, monitor tachycardia and hypertension Pain Assessment: Pain not reported during session. Subjective Comments: Agreeable to therapy session. Team Communication: The patient's status was discussed and coordination of care occurred with RN, PT OBJECTIVE Vital Signs: Vitals monitored throughout session; within normal ranges. Outcome Measures: [facility] Inpatient Short Form: Putting on and taking [...] at or below 17 Clinicians answer the [facility] Inpatient Short Form based on observed patient [...] catheter in place draining clear yellow I/O ([id number]): 73 cc serosanguineous from the drain Seven [...] CBI. 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 [facility] Summary: Diet: NPO, TPN Activity: Ad kong [...] discussed with Dr. Venegas, chief urology resident transfer iron operator. Pager during business hours: [phone] Pager after hours: [phone] * Chary Diamond M.A., O.TJonah, OMAYRA - 08/22/2023 4:19 PM CDT 08/22/23 1619 Reason Therapy Missed Reason Therapy Missed Receiving other care Patient had IR appointment this morning for placement of Power PICC. OT unavailable to return in the afternoon. Will attempt to see patient at a later date as appropriate and able. Chary Diamond M.A., Tara.Cooper, BCP * Deanne Mike L.G.S.W., M.S.W. - 08/22/2023 4:06 PM CDT SUBJECTIVE Social Work met with patient and his son in his hospital room. Patient indicates a desire for home health care for PICC care, PT, and OT. His [facility] sent there. Social Work sent referral. OBJECTIVE Patient is anticipated to remain at [facility] for 3-5 days. Referrals sent: [facility] ASSESSMENT / PLAN ASSESSMENT Patient has robust family support including a son living with him. PLAN Patient desires home health care through [facility]. Social Work will continue to follow to [...] 83 y.o. male who was admitted to [facility] in [place] on 08/13/2023 for Hematuria [R31.9] Precautions Other [...] hypotension or respiratory distress. . Outcome Measures: AM-[facility] Inpatient Short Form: AM-[facility] Basic Mobility (V.2) How much help [...] at or below 17 Clinicians answer the [facility] Inpatient Short Form based on observed patient [...] baseline. PT Goal #2: Patient will perform hwd-au-sxczd transfer with modified independence and least restrictive [...] Buchanan P.T., D.P.T., GCS * Demarco Salazar, Phuc., R.Ph., [facility] - 08/22/2023 10:57 AM CDT Pharmacist Progress [...] Total Kcal/day: 1370 based on 84 % Garcia-Alturas Non-standard additives: MAX chloride Thiamine 100 mg [...] place draining light smith colored urine I/O ([id number]): CBI on slow drip 75 cc serosanguineous [...] CBI. He was subsequently transferred to [facility] 08/12 for difficulty irrigating his catheter [...] have him follow up with his local environmental services assistant Comorbidities: --history of DVT status post IVC [...] discussed with Dr. Venegas, chief urology resident transfer iron operator. Pager during business hours: [phone] Pager after hours: [phone] * Qamar Jim, Pharm.D., R.Ph. - 08/21/2023 [...] place draining clear smith colored urine I/O ([id number]): 1800 cc urine output 75 cc serosanguineous [...] locallyfor I. He was subsequently transferred to [facility] 08/12 for difficulty irrigating his catheter [...] have him follow up with his local environmental services assistant Comorbidities: --history of DVT status post IVC [...] Held Home Meds: None Consults: POWER, KESHIA Harvey M.D. 08/21/2023 Please page the Urology Chief Service with questions or concerns. Patient seen and discussed with Dr. Venegas, chief urology resident transfer iron operator. Pager during business hours: [phone] Pager after hours: [phone] * Lizette Harvey M.D. - 08/20/2023 8:08 [...] draining clear thin merlot colored urine I/O ([id number]): 240 cc p.o. intake 760 cc urine [...] CBI. He was subsequently transferred to [facility] 08/12 for difficulty irrigating his catheter [...] began to pass gas -advanced to general 5/9, had an episode of emesis 08/18, NPO [...] have him follow up with his local environmental services assistant Comorbidities: --history of DVT status post IVC [...] questions or concerns. Pager during business hours: [phone] Pager after hours: [phone] * Qamar Jim, Pharm.D., R.Ph. - 08/20/2023 [...] Jim Pharm.D., R.Ph. * Lisa Seaman, O.T., [facility] - 08/19/2023 2:26 PM CDT Occupational Therapy [facility] Inpatient Treatment SUBJECTIVE Patient's Name: Kalen Vega Referring/Attending Provider: Boubacar Brock M.D. Reason for Referral: Occupational Therapy Evaluation and Treatment History of Present Illness: Kalen Vega is a 83 y.o. male who was admitted to [facility] in [place] on 08/13/2023 for Hematuria [R31.9]. Precautions Other [...] at or below 17 Clinicians answer the [facility] Inpatient Short Form based on observed patient [...] about patient's nutritional care please contact pager [phone] on weekdays or [phone] on weekends/holidays. NUTRITION ASSESSMENT: Mr. Vega is [...] care everywhere) ESTIMATED NEEDS: Total Calorie Needs: 4248-2239 calories/day Method to Estimate Energy Needs: kcal/kg [...] 83 y.o. male who was admitted to [facility] in [place] on 08/13/2023 for Hematuria [R31.9] Precautions Other [...] mmHg O2: 96% Room air Outcome Measures: [facility] Inpatient Short Form: -[facility] Basic Mobility (V.2) How much help [...] 3-5 steps with a railing?: A Little -[facility] Basic Mobility (V.2) Raw Score: 18 -[facility] Basic Mobility (V.2) Standardized Score: 41.05 Interpretation: Based on scoring guidelines using the raw score value: Those going to home had an average score at or above 18 Those going to facility had an average score at or below 17 Clinicians answer the -[facility] Inpatient Short Form based on [...] Ongoing PT Goal #2: Patient will perform zeb-tm-fwarm transfer with modified independence and least restrictive [...] in place draining clear pink urine I/O ([id number]): 370 p.o. intake 1 L urine output [...] locallyfor I. He was subsequently transferred to [facility] 08/12 for difficulty irrigating his catheter [...] 2.5 mg BID eliquis initiated 08/15 per [facility] med curbside recs --transition from eliquis [...] have him follow up with his local environmental services assistant Comorbidities: --history of DVT status post IVC [...] questions or concerns. Pager during business hours: [phone] Pager after hours: [phone] * Lisa Seaman O.T., MOT - 08/18/2023 11:15 AM CDT Occupational Therapy [facility] Inpatient Treatment SUBJECTIVE Patient's Name: Kalen Vega Referring/Attending Provider: Boubacar Brock M.D. Reason for Referral: Occupational Therapy Evaluation and Treatment History of Present Illness: Kalen Vega is a 83 y.o. male who was admitted to [facility] in [place] on 08/13/2023 for Hematuria [R31.9]. Precautions Other [...] pressure: 168/97 - nurse notified Outcome Measures: [facility] Inpatient Short Form: Putting on and taking [...] at or below 17 Clinicians answer the [facility] Inpatient Short Form based on observed patient [...] doffing over it last. Recommended adaptive equipment: Dam Operator and Sock Aid. Patient was left in bedside chair, with nursing/ORE MINER at end of session with call light [...] Time (min): 26 min Lisa Seaman O.T., JOYD * KarScott rajput P.T., D.P.T. - 08/18/2023 8:18 AM CDT Physical Therapy Inpatient Treatment SUBJECTIVE Patient's Name: Kalen Vega Referring/Attending Provider: Boubacar Brock M.D. Reason for Referral: Physical Therapy Evaluate and Treat History of Present Illness: Kalen Vega is a 83 y.o. male who was admitted to [facility] in [place] on 08/13/2023 for Hematuria [R31.9] Precautions Other [...] at or below 17 Clinicians answer the -[facility] Inpatient Short Form based on [...] following coordination of care occurred with the safety grooving machine operator/Caregiver Present: No Patient was left in bedside [...] Progressing PT Goal #2: Patient will perform iri-wh-afbji transfer with modified independence and least restrictive [...] in place draining clear pink urine I/O ([id number]): 1.2 L p.o. intake 1 L urine [...] CBI. He was subsequently transferred to [facility] 08/12 for difficulty irrigating his catheter [...] diet later today follow up vascular medicine [facility] Summary: Diet: currently limited clears Activity: Ad kong DVT PPX: heparin drip GI PPX: Pantoprazole Bowel Regimen:N/A IVF: none Abx/Microbiology: Ceftriaxone Pain Control: Tylenol, oxycodone 08/18. Scheduled trospium Home Meds Resumed: Metoprolol, tamsulosin, rosuvastatin Held Home Meds: None Consults: None Paula Hernandez M.D. 08/18/2023 6:02 AM CDT Please page the Urology Chief Service with questions or concerns. Pager during business hours: [phone] Pager after hours: [phone] * Tayler Greenwood M.D., M.Ed. - 08/17/2023 [...] MD, MEd * Alia Ruelas Pharm.D., R.Ph., [facility] - 08/17/2023 6:08 PM CDT Heparin Indication: [...] [address] Pharm.D., R.Ph., BCPS * Paual Hernandez M.D. - 08/17/2023 3:00 PM CDT [...] the patient follow up with his primary environmental services assistant at discharge we will which we will [...] Will restart home enzalutamide today (own supply). Mireille Bautista.D., R.Ph. INPATIENT MED LIST: acetaminophen, 650 mg, [...] Ringer's Lactated Ringer's * Lisa Seaman, O.T., [facility] - 08/17/2023 10:47 AM CDT Occupational Therapy [facility] Inpatient Treatment SUBJECTIVE Patient's Name: Kalen Vega Referring/Attending Provider: Boubacar Brock M.D. Reason for Referral: Occupational Therapy Evaluation and Treatment History of Present Illness: Kalen Vega is a 83 y.o. male who was admitted to [facility] in [place] on 08/13/2023 for Hematuria [R31.9]. Precautions Other Precautions: abdominal; fall risk; watch HR Pain Assessment: Pain not reported during session. Subjective Comments: Patient greeted in bed and agreeable to therapy session. Team Communication: The patient's status was discussed and coordination of care occurred with RN OBJECTIVE Vital Signs: Vitals taken during session: Pulse rate: 102-128 bpm Outcome Measures: [facility] Inpatient Short Form: Putting on and taking [...] at or below 17 Clinicians answer the [facility] Inpatient Short Form based on observed patient [...] in place draining clear pink urine I/O ([id number]): NG tube 200 cc Two hundred sixty-five [...] CBI. He was subsequently transferred to [facility] 08/12 for difficulty irrigating his catheter [...] held since 08/11) -discussed with vascular Medicine [facility] [place] 08/15 regarding ongoing anticoagulation/antiplatelet. Theyfelt he no [...] questions or concerns. Pager during business hours: [phone] Pager after hours: [phone] * Audi De Luna P.T., D.P.T. - [...] in place draining clear pink urine I/O ([id number]): NG tube 200 cc Two hundred sixty-five [...] Plavix and Xarelto last doses of each 5/3 On 08/11 developed worsening hematuria ultimately went into clot retention and was admitted locallyfor CBI. He was subsequently transferred to [facility] 08/12 for difficulty irrigating his catheter [...] with Cardiology [facility]: Diet: NPO Activity: Ad kong DVT PPX: Ashley heparin GI PPX: Pantoprazole Bowel Regimen:N/A IVF: LR 75 Abx/Microbiology: Ceftriaxone Pain Control: Tylenol, oxycodone 08/18. Scheduled trospium Home Meds Resumed: Metoprolol, tamsulosin, rosuvastatin Held Home Meds: None Consults: None Signed by: Paula Hernandez M.D. 08/16/2023 6:02 AM CDT Please page the Urology Chief Service with questions or concerns. Pager during business hours: [phone] Pager after hours: [phone] * Paula Hernandez M.D. - 08/15/2023 9:09 AM CDT PROGRESS NOTE: No events. AFVSS. Pain controlled. No flatus. No further emesis overnight. Abdomen more distended than yesterday but remained soft, tender to deep palpation only, no rebound. Twenty-four Vietnamese Alcock three-way catheter remains off CBI, draining [...] CBI. He was subsequently transferred to [facility] 08/12 for difficulty irrigating his catheter [...] risks associated with surgery and anesthesia including ME, stroke, and VTE were also discussed. Finally, [...] above was discussed with Dr. Brock, urology technical support consultant on-call who is in agreement with [...] Family to bring his home enzalutamide from [place] Irvin Franco Pharm.D., R.Ph. * Jakob De Paz M.D. - 08/14/2023 11:34 AM CDT PROGRESS NOTE: No events. AFVSS. Pain controlled. No flatus. Nauseous and had 2 episodes of emesis. Abdomen more distended than yesterday but remained soft, tender to deep palpation only, no rebound. Twenty-four Vietnamese Alcock three-way catheter remains off CBI, draining [...] CBI. He was subsequently transferred to [facility] 08/12 for difficulty irrigating his catheter [...] SCDs, ambulation - Tentative plan for OR / for formal bladder closure, right ureteral stent exchange The above was discussed with Dr. Brock, urology technical support consultant on-call who is in agreement with [...] Patient discussed with Dr. Sylvester. Page CCM3 [id number] Carlos Alberto Henson M.D. PGY-1 CCM 3 [...] plan of care as per CCM3. * Franco, Karyn Bryan, R.Ph. - 08/13/2023 3:54 PM CDT Pharmacist [...] who have asked we place a 24 Vietnamese 3-way urinary catheter pending evaluation. We will [...] him to present to local hospital in [place]. OSH Course: His hemoglobin was in the [...] Insecurity: No Food Insecurity (02/16/2022) [facility] Food Insecurity Worried About Running Out of Food in the Last Year: 1 Transportation Needs: No Transportation Needs (02/16/2022) [facility] Transportation Needs Lack of Transportation (Medical): 1 Housing Stability: Low Risk (02/16/2022) Received from [facility] Housing Stability Unable to Pay for Housing [...] Dr. Sylvester and Dr. Rodriguez. Page CCM3 [id number] Carlos Alberto Henson M.D. PGY-1 CCM 3 [...] As expected PRIMARY PROCEDURALIST FAY Cerna MD [phone] ASSISTANTS none COMPLICATIONS None. DRAINS None. IMPLANTS [...] peripheral vein targets. Ultrasound used for assessment: [employer] Fit Provider contacted (include name): Uro Surg [...] 14 -- AST U/L 25 -- Radiology: @[id number]@ Swallow Assessment: No data to display ASSESSMENT / PLAN #1 Hematuria ASSESSMENT Currently we are asked to visit with Mr. Vega for consideration of parenteral nutrition. Nutrition Needs: Height: 180 cm Admission Weight: 91.2 kg (08/13/2023) Current Weight: 90.2 kg BMI (Calculated): 27.8 kg/m?? Total Calorie Needs: 2195-4748 calories/day Method to Estimate Energy Needs: Garcia-Alturas ( ) Weight Used for Equation Calculations: [...] on electrolytes Please call NSS pager at [phone] at [facility] or [phone] at [facility] with any additional questions. * Gilbert Johnson M.D. - 08/20/2023 8:05 AM CDTAssociated Order(s): Nutrition support service consult ([facility]) SUBJECTIVE Nutrition support service consult ([facility]) Referring Provider: Lizette Harvey M.D. REASON FOR [...] values in this interval not displayed. Radiology: @[email or web address]@ Swallow Assessment: No data to display ASSESSMENT / PLAN #1 Hematuria ASSESSMENT Currently we are asked to visit with Mr. Vega for consideration of parenteral nutrition. Nutrition Needs: Height: 180 cm Admission Weight: 91.2 kg (08/13/2023) Current Weight: 90.2 kg BMI (Calculated): 27.8 kg/m?? Total Calorie Needs: 9421-6469 calories/day Method to Estimate Energy Needs: kcal/kg [...] on electrolytes Please call NSS pager at [phone] at [facility] or [phone] at [facility] with any additional questions. BILLING/CODING Total visit [...] stent along with other stents and apparently environmental services assistant in the past I recommended indefinite dual [...] in the history of present illness. @[id number] OBJECTIVE Current Facility-Administered Medications: acetaminophen tablet 650 [...] 20 mL/hr, intravenous, Continuous, Frieda Garner APRN, VALVE AND REGULATOR REPAIRER, Last Rate: 20 mL/hr at 08/15/23 1459, [...] but he can discuss this with his environmental services assistant at home. We need to balance transfusion needs for continued bleedingand risk of recurrent ME if not on Plavix-coronary stents were 6 [...] Therapy Inpatient Evaluation/Treatment SUBJECTIVE Patient's Name: Kalen Veag Referring/Attending Provider: Boubacar Brock M.D. Reason for [...] 83 y.o. male who was admitted to [facility] in [place] on 08/13/2023 for Hematuria [R31.9]. Relevant Medical History: Kalen Vega is a 83 y.o. 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 Outcome Measures: [facility] Inpatient Short Form: [facility] Basic Mobility (V.2) How much help [...] 3-5 steps with a railing?: A Lot [facility] Basic Mobility (V.2) Raw Score: 17 [facility] Basic Mobility (V.2) Standardized Score: 39.67 Interpretation: Based on scoring guidelines using the raw score value: Those going to home had an average score at or above 18 Those going to facility had an average score at or below 17 Clinicians answer the [facility] Inpatient Short Form based on observed patient [...] following coordination of care occurred with the safety grooving machine operator/Caregiver Present: SonFavio Patient was left in bedside [...] 83 y.o. male who was admitted to [facility] in [place] on 08/13/2023 for Hematuria with cystotomy and [...] Min assist for mobility. Required assist for [id number]-ak-[id number] for force generation and is generally standby [...] Ongoing PT Goal #2: Patient will perform [id number]-zw-[id number] transfer with modified independence and least restrictive [...] Celestin Associated attestation - Fidencio Caban P.T., FadiPJonahT. - 08/17/2023 5:45 PM CDT This therapist has reviewed all documentation and supervised today???s session. The therapist agrees with the plan developed in collaboration with the patient. * Lisa Seaman O.T., MOT - 08/16/2023 10:01 AM CDT Occupational Therapy [facility] Inpatient Evaluation/Treatment SUBJECTIVE Patient's Name: Kalen Vega Referring/Attending Provider: Boubacar Brock M.D. Reason for Referral: Occupational Therapy Evaluation and Treatment PERTINENT MEDICAL / SURGICAL HISTORY: Kalen Vega has no past medical history on file. Kalen Vega has no past surgical history on file. History of Present Illness: Kalen Vega is a 83 y.o. male who was admitted to [facility] in [place] on 08/13/2023 for Hematuria [R31.9]. Relevant Medical [...] with RN, PT Family/Caregiver Present: Son and [id number]-ryv. Home Living and Equipment: Lives with: Spouse/Significant [...] walker, Single point cane Adaptive Equipment Owned: Dam Operator, Long Handled Shoe Horn Other DME Owned: Regular flat bed Prior Level of Function and Mobility: Basic Activities of Daily Living: Independent Instrumental Activities of Daily Living: Required Assistance: Laundry son assists with laundry and cooking Functional Mobility: Independent Driving: Yes Occupational Role: Retired Leisure Interests: watch movies, plays [employer] train, meets friends for breakfast. 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 Patient expressed understanding and was [...] engaged in conversation with his family when psychiatric social worker entered the room. He was [...] locally at approximately 3:00 a.m. a 22 Vietnamese three-way catheter was placed and CBI wasinitiated. Unfortunately he clotted off the catheter multiple times despite manual irrigations, started to develop hypotension and tachycardia and [facility] He relays [...] non-distended, non-peritonitic Extremities: No edema : 22 Vietnamese three-way Tabares catheter draining a minimal amount [...] urinary retention Given his non draining 22 Vietnamese three-way catheter the Urology techs and I subsequently exchanged this for a 24 Vietnamese three-way Alcock in the usual sterile fashion. [...] to follow [place] [phone] with questions or concerns Sixto Cain M.D. documented in this encounter Nursing Notes * Lupe Valdez, R.N. - 08/26/2023 2:39 PM CDT Shift [...] peripheral vein targets. Ultrasound used for assessment: [employer] Fit Provider contacted (include name): Uro Surg [...] CDT Patient Transfer Note Patient [facility] to: [facility] Room: [facility] Accompanied by: JAMEL Garcia Report [...] vital signs? YES * Sixto Teague R.R.T., L.RCarlos, CUSTODIAL ENGINEER-[facility] - 08/14/2023 7:00 AM CDT Patient is [...] the last 24hours. Sixto Teague R.R.T., L.R.T., RRT-[facility] 08/14/23 7:00 AM CDT Electronically signed by Sixto Teague R.R.T., L.RCarlos CUSTODIAL ENGINEEREdyFEDERAL MEDICAL CENTER, [facility]STER[facility] at 08/14/2023 7:02 AM CDT * Radha Crespo R.R.T. L.R.T. - 08/13/2023 7:09 PM CDT Patient [...] Bladder Spontaneous Post-op Diagnosis Rupture Bladder Spontaneous Rn Infusion A environmental services assistant actively participated and was necessary for [...] the supine flexed position. His existing 24 Vietnamese three-way Tabares catheter was noted to be [...] additional tissue for additional coverage. A 24 Vietnamese three-way catheter was placed with 15 cc in the balloon. This irrigated to light clear pink. A 15 Vietnamese YARELI drain wasplaced into the pelvis exiting left lower quadrant. The fascia was closed with interrupted and [id number] 0 PDS. Fat was approximated using 3-0 [...] RN, CPN, CCDS, CCS, CRC Clinical Documentation Live Study Manager Query created by: ELMER Barker, RN, [...] stent and hematuria who is transferred from [place] ED with 3 days of hematuria & [...] RN, CPN, CCDS, CCS, CRC Clinical Documentation Live Study Manager Query created by: ELMER Barker, RN, [...] he felt completely obstructed and presented to [place] ED. [place] Course Attempted Tabares insertion but bladder irrigation was unsuccessful on multiple attempts. Hung 1U pRBC's. Given some volume and transferred to [facility] ICU ICU Course Urology consulted and were [...] CDT Procedure visit Department of Urology in [place], [place] [address] [place] [address] Paula Hernandez M.D. [address] [place] [address] Pending Results Name Type Priority Associated Diagnoses [...] 1 Units (08/26/2023 12:52 PM CDT) Corin iRng M.D. BLOOD TRANSFUSION OR DERABLES * IR [...] Antibody ID) (08/26/2023 6:50 AM CDT) Pathologist [facility] ABORh O Pos Not applicable 08/26/2023 7:16 AM CDT STRM Antibody Screen Negative Negative 08/26/2023 7:29 AM CDT STRM Type & Screen Expiration 08/29/2023 23:59 08/26/2023 7:16 AM CDT STRM Testing Location [place] [facility] 08/26/2023 6:57 AM CDT STRM Blood (Blood, Venous) 08/26/2023 6:50 AM CDT 08/26/2023 6:57 AM CDT Paula Hernandez M.D. LAB BLOOD BANK TEST ORDERABLES [facility] [place] [address] [place] [address], [place] [facility] [address] [place] [address] * (ABNORMAL) CBC without Differential (08/26/2023 3:20 [...] CDT Corin Ring M.D. LAB BLOOD ADD-ON [facility] [place] [address] [place] [address] * Magnesium (08/26/2023 3:20 AM CDT) Magnesium, S 2.1 1.7 - 2.3 mg/dL 08/26/2023 4:04 AM CDT DTL Blood (Blood, Venous) 08/26/2023 3:20 AM CDT 08/26/2023 3:50 AM CDT Boubacar Brock M.D. LAB BLOOD ADD-ON [facility] [place] [address] [place] [address] * (ABNORMAL) Renal Function Panel (08/26/2023 3:20 [...] CDT Boubacar Brock M.D. LAB BLOOD ADD-ON [facility] [place] [address] [place] [address], [facility] DTL [facility] [address] [place] [address] * Heparin Anti-Xa Assay (08/26/2023 3:20 AM [...] Hoyt M.D. [place] [address], [facility] [place] [address] * (ABNORMAL) CBC without Differential (08/25/2023 3:24 [...] CDT Corin Ring M.D. LAB BLOOD ADD-ON [facility] [address] [place] [address], [facility] DTL [facility] [address] [place] [address] * (ABNORMAL) Renal Function Panel (08/25/2023 3:24 AM CDT) Pathologist [facility] Potassium, S 4.1 3.6 - 5.2 mmol/L [...] M.D. LAB BLOOD ADD-ON Performing Organization Address City/[facility]/ZIP Co de Phone Number [facility] [place] [address] [place] [address], [facility] [address] [place] [address] * Magnesium (08/25/2023 3:24 AM CDT) Pathologist [facility] Magnesium, S 2.2 1.7 - 2.3 mg/dL 08/25/2023 4:36 AM CDT DT Blood (Blood, Venous) 08/25/2023 3:24 AM CDT 08/25/2023 4:19 AM CDT Boubacar Brock M.D. LAB BLOOD ADD-ON Performing Organization Address [facility] Co de Phone Number [facility] [place] [address] [place] [address], [facility] [address] [place] [address] * Heparin Anti-Xa Assay (08/25/2023 3:24 AM CDT) Pathologist [facility] Heparin Anti-Xa, P 0.31 IU/mL 2023 4:09 [...] Boubacar Brock M.D. LAB BLOOD NON ADD-ON [facility] [place] [address] [place] [address], [facility] DTL [facility] [address] [place] [address] * (ABNORMAL) CBC without Differential (08/24/2023 5:28 AM CDT) Pathologist [facility] Hemoglobin 8.1(L) 13.2 - 16.6 g/dL 08/24/2023 [...] CDT Corin Ring M.D. LAB BLOOD ADD-ON [facility] [place] [address] [place] [address], [facility] DTL [facility] [address] [place] [address] * Magnesium (08/24/2023 5:28 AM CDT) Magnesium, S 2.3 1.7 - 2.3 mg/dL 08/24/2023 6:19 AM CDT DTL Blood (Blood, Venous) 08/24/2023 5:28 AM CDT 08/24/2023 6:00 AM CDT Boubacar Brcok M.D. LAB BLOOD ADD-ON [facility] [place] [address] [place] [address], [facility] [address] [place] [address] * (ABNORMAL) Renal Function Panel (08/24/2023 5:28 [...] M.D. LAB BLOOD ADD-ON Performing Organization Address City/[facility] Co de Phone Number [facility] [place] [address] [place], [place] [phone] [place] [address] [address] [place] [address] * Heparin Anti-Xa Assay (08/24/2023 5:28 AM CDT) [facility] Heparin Anti-Xa, P 0.33 IU/mL 2023 5:58 [...] LAB BLOOD NON ADD-ON Performing Organization Address [facility] Co de Phone Number [facility] [place] [address] [place], [place] [phone] [place] [address] [facility] [address] [place] [address] * (ABNORMAL) Potassium (08/23/2023 9:58 PM CDT) [facility] Potassium, S 3.5(L) 3.6 - 5.2 mmol/L 08/23/2023 10:45 PM CDT DT Blood (Blood, Venous) 08/23/2023 9:58 PM CDT 08/23/2023 10:30 PM CDT Boubacar Brock M.D. LAB BLOOD ADD-ON Performing Organization Address City/[facility]/ZIP Co de Phone Number [facility] [place] [address] [place] [address], [facility] [address] [place] [address] * (ABNORMAL) Phosphorus Inorganic (08/23/2023 9:58 PM CDT) [facility] Phosphorus (Inorganic), S 2.1(L) 2.5 - 4.5 mg/dL 08/23/2023 10:45 PM CDT DT Blood (Blood, Venous) 08/23/2023 9:58 PM CDT 08/23/2023 10:30 PM CDT Paula Hernandez M.D. LAB BLOOD ADD-ON Performing Organization Address City/[facility]/ZIP Co de Phone Number [facility] [place] [address] [place] [address], [facility] [address] [place] [address] * Heparin Anti-Xa Assay (08/23/2023 11:37 AM CDT) [facility] Heparin Anti-Xa, P 0.51 IU/mL 2023 12:42 PM CDT [facility] Comment: [facility] therapeutic range: ?? 0.30-0.70 IU/mL [...] LAB BLOOD NON ADD-ON Performing Organization Address [facility]/ZIP Co de Phone Number [facility] [place] [address] [place] [address], [facility] DTL [facility] [address] [place] [address] * (ABNORMAL) CBC without Differential (08/23/2023 3:42 AM CDT) [facility] Hemoglobin 8.3(L) 13.2 - 16.6 g/dL [...] M.D. LAB BLOOD ADD-ON Performing Organization Address City/[facility]/ZIP Co de Phone Number [facility] [place] [address] [place] [address], [facility] DTL [facility] [address] [place] [address] * Triglycerides (08/23/2023 3:42 AM CDT) Triglycerides [...] M.D. LAB BLOOD ADD-ON Performing Organization Address City/[facility]/ZIP Co de Phone Number [facility] [place] [address] [place], [place] [phone] [place] [address] [address] [place] [address] * Magnesium (08/23/2023 3:42 AM CDT) Pathologist [facility] Magnesium, S 2.2 1.7 - 2.3 mg/dL 08/23/2023 4:50 AM CDT DTL Blood (Blood, Venous) 08/23/2023 3:42 AM CDT 08/23/2023 4:19 AM CDT Boubacar Brock M.D. LAB BLOOD ADD-ON [facility] [place] [address] [place], [place] [address] [place] [address] [address] [place] [address] * (ABNORMAL) Renal Function Panel (08/23/2023 3:42 [...] Boubacar Brock M.D. LAB BLOOD ADD-ON [facility] [address] [place] [address], [facility] [address] [place] [address] * Heparin Anti-Xa Assay (08/23/2023 3:41 AM [...] LAB BLOOD NON ADD-ON Performing Organization Address City/[facility]/ZIP Co de Phone Number [facility] [place] [address] [place] [address], [facility] [address] [place] [address] * Glucose, POCT (08/22/2023 11:38 PM CDT) Pathologist [facility] Glucose, POCT, B 117 70 - 140 mg/dL 08/23/2023 1:06 AM CDT PCLX Site Capillary 08/23/2023 1:06 AM CDT PCLX Last Intake NPO 08/23/2023 1:06 AM CDT PCLX Blood 08/22/2023 11:3 8 PM CDT 08/23/2023 1:06 AM CDT Unknown Provider LAB POCT ORDERABLES- MANUAL POC [facility] [address] [place] [address], [facility] PCLX [facility] POC [address] [place] [address] * Heparin Anti-Xa Assay (08/22/2023 10:14 PM [...] Boubacar Brock M.D. LAB BLOOD NON ADD-ON [facility] [place] [address] [place] [address], [facility] [address] [place] [address] * CT Abdomen Pelvis without IV Contrast [...] colon likelyrepresenting mild proctocolitis. Paula Hernandez M.D. Prieto CT PROCEDURES * Heparin Anti-Xa Assay (08/22/2023 [...] LAB BLOOD NON ADD-ON Performing Organization Address [facility]/ZIP Co de Phone Number [facility] [place] [address] [place] [address], [facility] [address] [place] [address] * Creatinine, Body Fluid (08/22/2023 3:30 PM [...] transport rates. All other fluids refer to www.[email or web address].com for further interpretive information. This test has been modified from the web applications developer's instructions. Its performance characteristics were determined by [facility] in a manner consistent with CLIA requirements. This test has not been cleared or approved by the U.S. Food and Drug Administration. Fluid Type, Creatinine Fluid, Abdomen 08/22/2023 3:52 PM CDT DTL Fluid (Abdomen) 08/22/2023 3 :30 PM CDT 08/22/2023 6:36 PM CDT Corin Ring M.D. LAB BODY FLUIDS AND STOOLS ORDERABLES Performing Organization Address [facility]/ZIP Co de Phone Number [facility] [place] [address] [place] [address], [place] DTL [facility] [address] [place] [address] * Transfuse Red Blood Cells : (08/22/2023 [...] of a right IJ vein single-lumen 4 Vietnamese tunneled PowerPICC ready for immediate use. NR [...] advanced into the IVC and a 4 Vietnamese dilator advanced over the wire and attached to a one-way stopcock. A suitable exit site in the right anterior chest was anesthetized and a small incision made. A 4 Vietnamese single-lumen PowerPICC was then tunneled from the [...] Wireadvanced into the IVC and a 4 Vietnamese dilator advanced over the wire andattached to a one-way stopcock. A suitable exit site in the right anteriorchest was anesthetized and a small incision made. A 4 Vietnamese single-lumen PowerPICC was then tunneled fromthe skin [...] of a right IJ vein single-lumen 4 Vietnamese tunneled PowerPICCready for immediate use. NR Kimi [...] M.D. LAB BLOOD ADD-ON Performing Organization Address City/[facility] Co de Phone Number [facility] [place] [address] [place] [address], [facility] STMA [facility] [address] [place] [address] * Type and Screen (with Reflex Antibody ID) (08/22/2023 2:55 AM CDT) ABORh O Pos Not applicable 08/22/2023 3:25 AM CDT STRM Antibody Screen Negative Negative 08/22/2023 3:38 AM CDT STRM Type & Screen Expiration 08/25/2023 23:59 08/22/2023 3:25 AM CDT STRM Testing Location [place] DEFAULT 08/22/2023 3:07 AM CDT STRM Blood (Blood, Venous) 08/22/2023 2:55 AM CDT 08/22/2023 3:07 AM CDT Latisha Whitehead M.D. LAB BLOOD BANK T EST ORDERABLES Performing Organization Address [facility] Co de Phone Number [facility] [place] [address] [place] [address], [facility] STRM [facility] [address] [place] [address] * (ABNORMAL) Comprehensive Metabolic Panel (08/22/2023 2:40 [...] CDT Latisha Whitehead M.D. LAB BLOOD ADD-ON [facility] [address] [place] [address], [facility] [address] [place] [address] * Heparin Anti-Xa Assay (08/22/2023 2:40 AM CDT) [facility] Heparin Anti-Xa, P 0.47 IU/mL 2023 [...] BLOOD NON AD D-ON Performing Organization Address City/[facility]/ZIP Co de Phone Number [facility] [place] [address] [facility] [address] [place] [address] * (ABNORMAL) APTT (Activated Partial Thromboplastin Time) (08/22/2023 2:40 AM CDT) [facility] Activated Partial Thrombopl Time, P 64(H) 25 - 37 sec 08/22/2023 3:12 AM CDT [facility] Blood (Blood, Venous) 08/22/2023 2:40 AM CDT 08/22/2023 3:01 AM CDT Latisha Whitehead M.D. LAB BLOOD ADD-ON [facility] [place] [address] [place] [address] * Triglycerides (08/21/2023 7:32 AM CDT) [facility] Triglycerides 98 mg/dL 08/21/2023 9:03 AM CDT DTL Comment: ----REFERENCE VALUE---- Normal: <150 mg/dL Borderline High: 150-199 mg/dL High: 200-499 mg/dL Very High: > or =500 mg/dL Fasting (8 HR or more) Unknown 08/21/2023 8:38 AM CDT DTL Blood (Blood, Venous) 08/21/2023 7:32 AM CDT 08/21/2023 8:38 AM CDT Lizette Harvey M.D. LAB BLOOD ADD-O N [facility] [place] [address] [place] [address] * Phosphorus Inorganic (08/21/2023 7:32 AM CDT) Phosphorus (Inorganic), S 2.6 2.5 - 4.5 mg/dL 08/21/2023 9:03 AM CDT DTL Blood (Blood, Venous) 08/21/2023 7:32 AM CDT 08/21/2023 8:38 AM CDT Lizette Harvey M.D. LAB BLOOD ADD-O N [facility] [place] [address] [place] [address] * Magnesium (08/21/2023 7:32 AM CDT) Magnesium, S 2.3 1.7 - 2.3 mg/dL 08/21/2023 9:03 AM CDT DTL Blood (Blood, Venous) 08/21/2023 7:32 AM CDT 08/21/2023 8:38 AM CDT Lizette Harvey M.D. LAB BLOOD ADD-O N Performing Organization Address City/[facility]/ZIP Co de Phone Number [facility] [place] [address] [place] [address], [facility] DTL [facility] [address] [place] [address] * (ABNORMAL) Basic Metabolic Panel (08/21/2023 7:32 [...] Lizette Harvey M.D. LAB BLOOD ADD-O N [facility] [place] [address] [place] [address], [facility] DTL [facility] [address] [place] [address] * (ABNORMAL) CBC without Differential (08/21/2023 7:32 [...] Lizette Harvey M.D. LAB BLOOD ADD-O N [address] [address], [facility] [address] [address] * Heparin Anti-Xa Assay (08/21/2023 7:32 AM [...] Boubacar Brock M.D. LAB BLOOD NON ADD-ON [facility] [place] [address] [place] [address], [facility] 200 [place] [address] * (ABNORMAL) APTT (Activated Partial Thromboplastin Time) (08/21/2023 7:32 AM CDT) Activated Partial Thrombopl Time, P 49(H) 25 - 37 sec 08/21/2023 8:31 AM CDT DT Blood (Blood, Venous) 08/21/2023 7:32 AM CDT 08/21/2023 8:06 AM CDT Boubacar Brock M.D. LAB BLOOD ADD-ON Performing Organization Address City/[facility]/ZIP Co de Phone Number [facility] [place] [address] [place] [address], [facility] [address] [place] [address] * Place peripherally inserted central catheter (PICC) [...] the atrophic right kidney. Lizette Harvey M.D. [facility] PROCEDUR ES * (ABNORMAL) Basic Metabolic [...] M.D. LAB BLOOD ADD-ON Performing Organization Address City/[facility]/ZIP Co de Phone Number [facility] [place] [address] [place] [address], [facility] DTL [facility] [address] [place] [address] * (ABNORMAL) CBC without Differential (08/20/2023 3:19 [...] CDT Paula Hernandez M.D. LAB BLOOD ADD-ON [facility] [place] [address] [place] [address], [facility] DTL [facility] [address] [place] [address] * (ABNORMAL) APTT (Activated Partial Thromboplastin Time) (08/20/2023 3:19 AM CDT) Activated Partial Thrombopl Time, P 52(H) 25 - 37 sec 08/20/2023 4:33 AM CDT DTL Blood (Blood, Venous) 08/20/2023 3:19 AM CDT 08/20/2023 4:10 AM CDT Boubacar Brock M.D. LAB BLOOD ADD-ON [facility] [place] [address] [place] [address], [facility] [address] [place] [address] * (ABNORMAL) APTT (Activated Partial Thromboplastin Time) (08/19/2023 10:57 AM CDT) [facility] Activated Partial Thrombopl Time, P 54(H) 25 - 37 sec 08/19/2023 11:44 AM CDT DT Blood (Blood, Venous) 08/19/2023 10:57 AM CDT 08/19/2023 11:26 AM CDT Boubacar Brock M.D. LAB BLOOD ADD-ON Performing Organization Address City/[facility]/ZIP Co de Phone Number [facility] [place] [address] [place] [address], [facility] [address] [place] [address] * (ABNORMAL) APTT (Activated Partial Thromboplastin Time) (08/19/2023 4:51 AM CDT) Pathologist [facility] Activated Partial Thrombopl Time, P 59(H) 25 - 37 sec 08/19/2023 5:53 AM CDT DT Blood (Blood, Venous) 08/19/2023 4:51 AM CDT 08/19/2023 5:36 AM CDT Boubacar Brock M.D. LAB BLOOD ADD-ON [facility] [place] [address] [place], [place] [address] [address] [place] [address] * (ABNORMAL) APTT (Activated Partial Thromboplastin Time) (08/18/2023 10:03 PM CDT) Pathologist [facility] Activated Partial Thrombopl Time, P 63(H) 25 - 37 sec 08/18/2023 10:41 PM CDT DTL Blood (Blood, Venous) 08/18/2023 10:03 PM CDT 08/18/2023 10:19 PM CDT Boubacar Brock M.D. LAB BLOOD ADD-ON Performing Organization Address City/[facility]/ZIP Co de Phone Number [facility] [place] [address] [place], [place] [address] [place] [address] 200 [place] [address] * (ABNORMAL) APTT (Activated Partial Thromboplastin Time) (08/18/2023 2:50 PM CDT) [facility] Activated Partial Thrombopl Time, P 64(H) 25 - 37 sec 08/18/2023 3:25 PM CDT DT Blood (Blood, Venous) 08/18/2023 2:50 PM CDT 08/18/2023 3:07 PM CDT Boubacar Brock M.D. LAB BLOOD ADD-ON [facility] [place] [address] [place], [place] [address] [place] [address] 200 [place] [address] * (ABNORMAL) APTT (Activated Partial Thromboplastin Time) (08/18/2023 6:42 AM CDT) Pathologist [facility] Activated Partial Thrombopl Time, P 61(H) 25 - 37 sec 08/18/2023 7:28 AM CDT DTL Blood (Blood, Venous) 08/18/2023 6:42 AM CDT 08/18/2023 7:04 AM CDT Boubacar Brock M.D. LAB BLOOD ADD-ON [facility] [place] [address] [address] * (ABNORMAL) APTT (Activated Partial Thromboplastin Time) (08/17/2023 11:04 PM CDT) [facility] Activated Partial Thrombopl Time, P 40(H) 25 - 37 sec 08/17/2023 11:46 PM CDT DTL Blood (Blood, Venous) 08/17/2023 11:04 PM CDT 08/17/2023 11:31 PM CDT Boubacar Brock M.D. LAB BLOOD ADD-ON Performing Organization Address City/[facility]/ZIP Co de Phone Number [facility] [place] [address] [place], [place] [address] [place] [address] * US Lower Extremity Veins Bilateral (08/17/2023 [...] and management can be found on the E-Sign site. Link [email or web address] Findings discussed with ??Tayler Greenwood, ?? ([id number]) on 08/17/2023 7:11 PM. Procedure Note Jj [...] can be found on theAskMayoExpert site. [email or web address] Findings discussed with Tayler Greenwood MD ([id number]) on 08/17/2023 7:11 PM. IMPRESSION: 1. 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 2. No acute left-sided DVT. Corin Ring M.D. IMG US PROCEDURES * APTT (Activated Partial Thromboplastin Time) (08/17/2023 4:56 PM CDT) [facility] Activated Partial Thrombopl Time, P 29 25 - 37 sec 08/17/2023 5:10 PM CDT [facility] Blood (Blood, Venous) 08/17/2023 4:56 PM CDT 08/17/2023 5:00 PM CDT Paula Hernandez M.D. LAB BLOOD ADD-ON [facility] [place] [address] [place] [address], [facility] [address] [place] [address] * ECG 12 Lead (08/16/2023 9:43 PM CDT) [facility] Ventricular Rate ECG/Min 134 BPM MUSE AK Interval 136 ms MUSE QRSD Interval 76 ms MUSE QT Interval 298 ms MUSE QTC Interval 445 ms MUSE P [place] 29 degrees MUSE R [place] -6 degrees MUSE T Wave [place] 21 degrees MUSE 08/16/2023 9:43 PM CDT [...] CDT Geneva Azar M.D. LAB BLOOD ADD-ON [facility] [place] [address] [place] [address], [facility] DTL [facility] [address] [place] [address] * (ABNORMAL) Basic Metabolic Panel (08/16/2023 9:40 PM CDT) Pathologist [facility] Potassium, S 3.9 3.6 - 5.2 mmol/L [...] CDT Geneva Azar M.D. LAB BLOOD ADD-ON [facility] [place] [address] [place] [address], [facility] DTL [facility] [address] [place] [address] * Transfuse Red Blood Cells : (08/16/2023 12:04 PM CDT) Corin Ring M.D. BLOOD TRANSFUSION OR DERABLES * Transfuse Red Blood Cells : , 1 Units (08/16/2023 12:04 PM CDT) Corin Ring M.D. BLOOD TRANSFUSION OR DERABLES * (ABNORMAL) Basic Metabolic Panel (08/16/2023 3:10 AM CDT) Pathologist [facility] Potassium, S 4.2 3.6 - 5.2 mmol/L [...] M.D. LAB BLOOD ADD-ON Performing Organization Address [facility] Co de Phone Number [facility] [place] [address] [place] [address], [facility] [address] [place] [address] * (ABNORMAL) CBC without Differential (08/16/2023 3:10 [...] M.D. LAB BLOOD ADD-ON Performing Organization Address [facility]/ZIP Co de Phone Number [facility] [place] [address] [place] [address], [facility] [address] [place] [address] * (ABNORMAL) CBC with Differential, Blood (08/15/2023 [...] Carlos Alberto Henson M.D. LAB BLOOD ADD-ON [facility] [place] [address] [place] [address], [facility] DTL [facility] [address] [place] [address] [facility] [address] [place] [address] * DX Abdomen 1 View (08/15/2023 1:19 [...] CDT 08/15/2023 12:03 PM CDT Rae Gonzalez STEWARD RACETRACK, VALVE AND REGULATOR REPAIRER, DNAP LAB BLOO D NON ADD-ON [facility] [place] [address] [place] [address], [facility] [address] [place] [address] * Lactate, B - Intra-op (08/15/2023 11:56 AM CDT) Lactate, B 1.1 0.5 - 2.2 mmol/L 08/15/2023 12:06 PM CDT STMA Blood (Blood, Venous) 08/15/2023 11:56 AM CDT 08/15/2023 12:03 PM CDT Hayde Song M.D. LAB BLOOD NON ADD-O N [facility] [place] [address] [place] [address], [facility] [address] [place] [address] * (ABNORMAL) Glucose, Whole Blood (08/15/2023 11:56 AM CDT) Glucose 144(H) 70 - 140 mg/dL 08/15/2023 12:06 PM CDT [facility]MA Blood (Blood, Arterial Line) 08/15/2023 11:56 AM CDT 08/15/2023 12:03 PM CDT Hayde Song M.D. LAB BLOOD ADD-ON Performing Organization Address City/[facility]/ZIP Co de Phone Number [facility] [place] [address] [place] [address], [facility] [address] [place] [address] * Potassium, Blood (08/15/2023 11:56 AM CDT) Potassium, B 4.3 3.6 - 5.2 mmol/L 08/15/2023 12:07 PM CDT [facility] Blood (Blood, Arterial Line) 08/15/2023 11:56 AM CDT 08/15/2023 12:03 PM CDT Hayde Song M.D. LAB BLOOD NON ADD-O N [facility] [place] [address] [place] [address], [facility] [address] [place] [address] * Sodium, B (08/15/2023 11:56 AM CDT) Sodium, B 135 135 - 145 mmol/L 08/15/2023 12:06 PM CDT [facility] Blood (Blood, Arterial Line) 08/15/2023 11:56 AM CDT 08/15/2023 12:03 PM CDT Hayde Song M.D. LAB BLOOD NON ADD-O N [facility] [place] [address] [place] [address], [facility] [address] [place] [address] * (ABNORMAL) Calcium, Ionized (08/15/2023 11:56 AM CDT) Calcium, Ionized, B 4.53(L) 4.65 - 5.30 mg/dL 08/15/2023 12:07 PM CDT [facility] Blood (Blood, Arterial Line) 08/15/2023 11:56 AM CDT 08/15/2023 12:03 PM CDT Hayde Song M.D. LAB BLOOD NON ADD-O N Performing Organization Address City/[facility]/ZIP Co de Phone Number [facility] [place] [address] [place] [address], [place] [address] * (ABNORMAL) Blood Gas with Coox, Arterial [...] BLOOD NON ADD-O N Performing Organization Address City/[facility]/ZIP Co de Phone Number [facility] [place] [address] [place] [address], [facility] STMA [facility] [address] [place] [address] * FL Fluoro Less Than 1 Hour (08/15/2023 11:22 AM CDT) Narrative 152 HOS LOS RST - 08/15/2023 11:24 AM CDT This exam does not require a radiologist review or interpretation. Please refer to the patient's medical record on this date for clinical details. Boubacar Brock M.D. IMG FLUOROSCOPY PROC EDURES Performing Organization Address City/[facility]/ZIP Co de Phone Number 152 HOS LOS RST * Patient Status (08/15/2023 10:28 AM CDT) Temperature 36.1 37.0 deg C 08/15/2023 10:28 AM CDT [facility] FIO2 0.55 0.21=AIR 08/15/2023 10:28 AM CDT [facility] Blood 08/15/2023 10:2 8 AM CDT 08/15/2023 10:28 AM CDT Rae Gonzalez STEWARD RACETRACK, VALVE AND REGULATOR REPAIRER, DNAP LAB BLOO D NON ADD-ON Performing Organization Address City/[facility]/ZIP Co de Phone Number [facility] [place] [address] [place] [address], [facility] [address] [place] [address] * Lactate, B - Intra-op (08/15/2023 10:28 AM CDT) Lactate, B 1.1 0.5 - 2.2 mmol/L 08/15/2023 10:30 AM CDT [facility] Blood (Blood, Venous) 08/15/2023 10:28 AM CDT 08/15/2023 10:28 AM CDT Hayde Song M.D. LAB BLOOD NON ADD-O N [facility] [place] [address] [place] [address], [facility] [address] [place] [address] * Glucose, Whole Blood (08/15/2023 10:28 AM CDT) Glucose 134 70 - 140 mg/dL 08/15/2023 10:30 AM CDT [facility] Blood (Blood, Arterial Line) 08/15/2023 10:28 AM CDT 08/15/2023 10:28 AM CDT Hayde Song M.D. LAB BLOOD ADD-ON [facility] [place] [address] [place] [address], [facility] [address] [place] [address] * Potassium, Blood (08/15/2023 10:28 AM CDT) Potassium, B 4.1 3.6 - 5.2 mmol/L 08/15/2023 10:31 AM CDT [facility] Blood (Blood, Arterial Line) 08/15/2023 10:28 AM CDT 08/15/2023 10:28 AM CDT Hayde Song M.D. LAB BLOOD NON ADD-O N [facility] [place] [address] [place] [address] [place] [address] * Sodium, B (08/15/2023 10:28 AM CDT) Sodium, B 135 135 - 145 mmol/L 08/15/2023 10:30 AM CDT [facility] Blood (Blood, Arterial Line) 08/15/2023 10:28 AM CDT 08/15/2023 10:28 AM CDT Hayde Song M.D. LAB BLOOD NON ADD-O N Performing Organization Address City/[facility] Co de Phone Number [facility] [place] [address] [place] [address] [place] [address] * (ABNORMAL) Calcium, Ionized (08/15/2023 10:28 AM CDT) Calcium, Ionized, B 4.25(L) 4.65 - 5.30 mg/dL 08/15/2023 10:31 AM CDT [facility] Blood (Blood, Arterial Line) 08/15/2023 10:28 AM CDT 08/15/2023 10:28 AM CDT Hayde Song M.D. LAB BLOOD NON ADD-O N [facility] [place] [address] [place] [address] * (ABNORMAL) Blood Gas with Coox, Arterial [...] Song M.D. LAB BLOOD NON ADD-O N [facility] [place] [address] [place] [address], [facility] [address] [place] [address] * Bacteria / Yomaira Culture, Blood #2 (08/15/2023 3:33 AM CDT) Bacteria/Leyla da Culture, Blood No growth after 5 days of incubation. 08/20/2023 6:02 AM CDT DTL Blood (Blood, Peripheral Draw) 08/15/2023 3:33 AM CDT 08/15/2023 5:58 AM CDT Comment:Specimen Source Site : Blood Narrative [facility] [place] - 08/20/2023 6:02 AM CDT Received Bactec aerobic and Bactec anaerobic bottles Carlos Alberto Henson M.D. LAB MICROBIOLOGY - G ENERAL ORDERABLES [facility] [place] [address] [place] [address], [facility] DTL [facility] [address] [place] [address] * (ABNORMAL) Basic Metabolic Panel (08/15/2023 3:31 AM CDT) [facility] Potassium, S 4.0 3.6 - 5.2 [...] Jakob De Paz M.D. LAB BLOOD ADD-ON [facility] [place] [address] [place] [address], [facility] [address] [place] [address] * Bacteria / Yomaira Culture, Blood #1 (08/15/2023 3:31 AM CDT) [facility] Bacteria/Leyla da Culture, Blood No growth after 5 days of incubation. 08/20/2023 6:02 AM CDT DTL Blood (Blood, Peripheral Draw) 08/15/2023 3:31 AM CDT 08/15/2023 5:59 AM CDT Comment:Specimen Source Site : Blood Carlos Alberto Henson M.D. LAB MICROBIOLOGY - [facility] ORDERABLES [facility] [place] [address] [place] [address], [facility] [address] [place] [address] * (ABNORMAL) CBC with Differential, Blood (08/15/2023 3:30 AM CDT) [facility] Hemoglobin 9.5(L) 13.2 - 16.6 g/dL [...] Carlos Alberto Henson M.D. LAB BLOOD ADD-ON [facility] [place] [address] [place] [address], [facility] DTL [facility] [address] [place] [address] [facility] [address] [place] [address] * (ABNORMAL) CBC with Differential, Blood (08/14/2023 8:08 PM CDT) [facility] Hemoglobin 9.8(L) 13.2 - 16.6 g/dL [...] Carlos Alberto Henson M.D. LAB BLOOD ADD-ON [facility] [place] [address] [place] [address], [facility] STMA [facility] [address] [place] [address] [facility] [address] [place] [address] * Transfuse Red Blood Cells : , [...] with Differential, Blood (08/14/2023 3:18 AM CDT) [facility] Hemoglobin 7.6(L) 13.2 - 16.6 g/dL 08/14/2023 [...] Alberto Henson M.D. LAB BLOOD ADD-ON [facility] [address] [place] [address], [facility] STMA [facility] [address] [place] [address] [facility] [address] [place] [address] * (ABNORMAL) Basic Metabolic Panel (08/14/2023 3:18 [...] Carlos Alberto Henson M.D. LAB BLOOD ADD-ON [facility] [place] [address] [place] [address], [place] DTL [facility] [address] [place] [address] * Type and Screen (with Reflex Antibody ID) (08/13/2023 7:35 PM CDT) Pathologist [facility] ABORh O Pos Not applicable 08/13/2023 7:58 PM CDT STRM Antibody Screen Negative Negative 08/13/2023 8:13 PM CDT STRM Type & Screen Expiration 08/16/2023 23:59 08/13/2023 7:58 PM CDT STRM Testing Location [place] DEFAULT 08/13/2023 7:39 PM CDT STRM Blood (Blood, Venous) 08/13/2023 7:35 PM CDT 08/13/2023 7:39 PM CDT Carlos Alberto Henson M.D. LAB BLOOD BANK TEST ORDERABLES Performing Organization Address [facility]/ZIP Co de Phone Number [facility] [place] [address] [place] [address], [facility] [address] [place] [address] * (ABNORMAL) Bacteria / Yomaira Culture, Blood #1 (08/13/2023 7:35 PM CDT) [facility] Bacteria/Cand jessica Culture, Blood ESCHERICHIA COLI Growth after 11 Hours (A) 08/16/2023 11:17 AM CDT DTL Comment: 3 of 3 Bottles, Susceptibilities performed on another specimen [id number] Blood (Blood, Peripheral Draw) 08/13/2023 7:35 PM CDT 08/13/2023 8:15 PM CDT Comment:Specimen Source Site : Blood Carlos Alberto Henson M.D. LAB MICROBIOLOGY - G ENERAL ORDERABLES [facility] [place] [address] [place] [address], [facility] DTL [facility] [address] [place] [address] * ECG 12 Lead (08/13/2023 7:02 PM CDT) [facility] Ventricular Rate ECG/Min 128 BPM MUSE AK Interval 138 ms MUSE QRSD Interval 64 ms MUSE QT Interval 304 ms MUSE QTC Interval 443 ms MUSE P [place] 45 degrees MUSE R [place] 34 degrees MUSE T Wave [place] 46 degrees MUSE 08/13/2023 7:02 PM CDT [...] CDT Comment:Specimen Source Site : Blood Narrative [facility] [place] - 08/16/2023 11:17 AM CDT Received Bactec [...] M.D. LAB MICROBIOLOGY - G ENERAL ORDERABLES [facility] [place] [address] [place] [address], [facility] [place] [address] * Magnesium (08/13/2023 5:27 PM CDT) Magnesium, S 1.9 1.7 - 2.3 mg/dL 08/13/2023 6:12 PM CDT DTL Blood (Blood, Venous) 08/13/2023 5:27 PM CDT 08/13/2023 5:58 PM CDT Carlos Alberto Henson M.D. LAB BLOOD ADD-ON [facility] [place] [address] [facility] [address] [place] [address] * (ABNORMAL) Hepatic Function Panel (08/13/2023 5:27 [...] Carlos Alberto Henson M.D. LAB BLOOD ADD-ON [address] [address], [facility] [address] [place] [address] * (ABNORMAL) Basic Metabolic Panel (08/13/2023 5:27 [...] Carlos Alberto Henson M.D. LAB BLOOD ADD-ON [place] [address] [place] [address], [facility] [address] [place] [address] * Prothrombin Time (PT) (08/13/2023 5:27 PM [...] Carlos Alberto Henson M.D. LAB BLOOD ADD-ON [facility] [address] [place] [address], [facility] STMA [facility] [address] [place] [address] * (ABNORMAL) CBC with Differential, Blood (08/13/2023 5:27 PM CDT) [facility] Hemoglobin 10.0(L) 13.2 - 16.6 g/dL [...] M.D. LAB BLOOD ADD-ON Performing Organization Address City/[facility]/ZIP Co de Phone Number [facility] [place] [address] [place] [address], [facility] STMA [facility] [address] [place] [address] DHPM [facility] [address] [place] [address] * (ABNORMAL) Dipstick, Urine (08/13/2023 5:07 PM [...] M.D. LAB URINE ORDERABLES Performing Organization Address City/[facility]/ZIP Co de Phone Number [facility] [place] [address] [place] [address], [facility] DTL [facility] [address] [place] [address] * Osmolality, Urine (08/13/2023 5:07 PM CDT) Osmolality, U 351 150 - 1150 mOsm/kg 08/13/2023 7:46 PM CDT DTL Urine 08/13/2023 5:07 PM CDT 08/13/2023 5:45 PM CDT Carlos Alberto Henson M.D. LAB URINE ORDERABLES [facility] [place] [address] [place] [address], [facility] [address] [place] [address] * (ABNORMAL) Microscopic Manual (08/13/2023 5:07 PM [...] M.D. LAB URINE ORDERABLES Performing Organization Address City/[facility]/ZIP Co de Phone Number [facility] [place] [address] [place] [address], [facility] [address] [place] [address] * pH, Random, Urine (08/13/2023 5:07 PM CDT) pH, Random, U 7.0 4.5 - 8.0 08/13/2023 7:46 PM CDT DTL Urine 08/13/2023 5:07 PM CDT 08/13/2023 5:45 PM CDT Carlos Alberto Henson M.D. LAB URINE ORDERABLES [facility] [place] [address] [place] [address], [facility] [address] [place] [address] * (ABNORMAL) Bacterial Culture, Aerobic + Susceptibility, [...] M.D. LAB MICROBIOLOGY - G ENERAL ORDERABLES [facility] [place] [address] [place] [address], [place] DTL [facility] [address] [place] [address] * (ABNORMAL) Urinalysis, with Microscopic: Urine, Midstream [...] CDT DTL Predicted 24 [place] [address](H) <229 mg/24 h 08/13/2023 8:50 PM CDT DTL Predicted Range [id number] mg/24 h 08/13/2023 8:50 PM CDT DTL Comment Micro done on <2.5 mL 08/13/2023 7:55 PM CDT DTL Urine (Urine, Midstream) 08/13/2023 5:07 PM CDT 08/13/2023 5:44 PM CDT Carlos Alberto Henson M.D. LAB URINE ORDERABLES [facility] [address] [place] [address], [place] DTL [facility] [address] [place] [address] * Interpretation of Outside CT Abdomen and [...] use home supply. 08/17/23: Id'ed by SISI. [facility] [place] [id number], filled 07/22/23. HAZARDOUS - Handle with care. Swallow whole. Do NOT crush, chew or open capsule. Given 08/26/2023 9:12 AM CDT 120 mg Given 08/25/2023 9:08 AM CDT 120 mg Given 08/24/2023 9:12 AM CDT 120 mg Lactated Ringer's 1.5 mL/kg/hr ? 75 kg [facility] [employer] weight (112.5 mL/hr, rounded to 113 mL/hr), intravenous, Continuous, Starting on Tue08/22/23 at 1030, Conditional Phase Pre-Gastrografin Administration. (Rate = 1.5 mL/kg/hr ideal body weight) Lactated Ringer's 0.75 mL/kg/hr ? 75 kg [facility] [employer] weight (56.25 mL/hr, rounded to 56.3 mL/hr), [...] use home supply. 08/17/23: Id'ed by SISI. [facility] [id number], filled 07/22/23. HAZARDOUS - Handle with care. Swallow whole. Do NOT crush, chew or open capsule. 09 (Given - Provider: Tayler Forrest R.N. - Comment: Pat Murray, -2nd RN) 0908 (Given - Provider: Tayler Forrest R.N. - Comment: Pt 's own med from home) 911 (Given - Provider: Lupe Valdez R.N.) fat emulsion upy-qqz-sdaro & fish oil infusion 50 g (SMOFlipid) [...] R.N. - Comment: verified by Paola Salazar, JMAEL)2127 (Stopped - Provider: Paola Salazar R.N.) lidocaine [...] Howe R.N.)1520 (Given - Provider: Mary Rosado RRitesh.) 0638 (Given - Provider: Fatuma See RJonahNJonah)1749 (Given - Provider: Paola Salazar RJonahNJonah) 0626 (Given - Provider: Mayur ArzolaN.)1600 (Due) Continuous Medication Order 08/24/2023 08/25/2023 08/26/2023 [...] obstruction (distal) 2127 (New Bag - Provider: Poala Salazar R.N.) 1134 (Stopped - Provider: Lupe [...] Salazar RN)2125 (New Bag - Provider: Paola Saalzar R.N.)2328 (Handoff - Provider: Edith Simental R.N. - Comment: herbert knight RN) 0407 (Rate/Dose Change - Provider: Edith Simental R.N.)0729 (Handoff - Provider: Lupe Valdez R.N. - Comment: Verified with JAMEL Sharma)1153 (Stopped - Provider: Lupe Valdez R.N.) Lactated Ringer's 1.5 mL/kg/hr ? 75 kg [employer] weight (112.5 mL/hr, rounded to 113 mL/hr), intravenous, Continuous, Starting on Tue08/22/23 at 1030, Conditional Phase Pre-Gastrografin Administration. (Rate = 1.5 mL/kg/hr ideal body weight) Lactated Ringer's 0.75 mL/kg/hr ? 75 kg [employer] weight (56.25 mL/hr, rounded to 56.3 mL/hr), [...] 1547 documented in this encounter Care Teams Stakeholder Manager Relationship Specialty Start Date End Date Elsewhere, Pcp PCP - General Internal Medicine 08/13/23 documented as of this encounter
--- OUTSIDE RECORDS SUMMARY | 2023-09-23 12:49 | XMS_ITS | Encounter Summary ---
Author Organization [facility] Address [address] [place] [address] Care Team Providers Care Waterproofing Mixer Name Role Phone Elsewhere, Pcp Primary Care Provider Unavailabl e Encounter Details Date Type Department Care Team (Latest Contact Info) Description 08/13/2023 Intake [facility] Social History Tobacco Use Types Packs/Day Years Used Date Smoking Tobacco: Never Smokeless Tobacco: Never [facility] Utilities Answer Date Recorded In the past [address] [facility] electric, gas, oil, or water company [...] your living situation today? I have a [facility] place to live 08/13/2023 Sex and Gender Information Value Date Recorded Sex Assigned at Not on file Gender Identity Not on file Sexual Orientation Not on file documented as of this encounter Plan of Treatment Upcoming Encounters Date Type Department Care Team (Late st Contact Info) Description 10/14/2023 1:00 PM CDT Procedure visit Department of Urology in [place], [place] [address] [place] [address] Paula Hernandez M.D. 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
--- OUTSIDE RECORDS SUMMARY | 2023-09-23 12:50 | XMS_ITS | Data Portability ---
Author Organization [facility], [facility] Address [address] [place] [address] Care Team Providers Care Systems Analyst Name Role Phone MASOUD SAUER Primary Care Provider [phone] Assessment No assessment recorded. Plan of Treatment Reminders Order Date Submit Date Provider Last Modified By Organization Details Last Modified Time Details Appointments None recorded . Lab urinalys is, dipstick 2023 024 [email or web address] [facility], [address] [place], [address], 4 15:08:54 culture, urine 2023 024 [facility], [address], [place], [address], 4 10:11:11 Referral None recorded . Procedures None recorded . Surgeries cystosco py with ureteral stent exchange (SURG) 2021 022 [email or web address] Not available 2 15:46:30 cystosco py with ureteral stent exchange (SURG) 2021 022 [email or web address] Not available 2 16:50:47 Imaging None recorded . Medication Orders Bactrim DS 800 mg-160 mg tablet 2023 024 [email or web address] [id number], [address] [place], [place], [id number], 4 16:19:28 Myrbetri q 50 mg tablet,e xtended release 2021 022 [id number], [address] , [place], [place], [phone], 17:50:02 Patient TargetsNo targets recorded. Patient InstructionsNo instructions recorded. Reason for Referral None Reported. Results Created Date Observation Date Name Description Value Unit Range Abnormal Flag LastModifiedBy Organization Detail LastModifiedTime 06/23/1906/23/2023 URINE CULTU RE final report MICROB IOLOGY RESULT S Not Available [facility] [address], [place], [address], 06/25/2023 10:11:11 06/23/19 24 06/23/2023 urina lysis , dipst ick Color-Status Red Not Available [facility] [address], [place], [address], 06/23/2023 15:08:10 06/23/19 24 06/23/2023 urina lysis , dipst ick pH-Status 7.5 Not Available [facility] [address], [place], [address], 06/23/2023 15:08:10 06/23/19 24 06/23/2023 urina lysis , dipst ick Protein-Stat us >=9.0 Not Available [facility] [address], [place], [address], 06/23/2023 15:08:10 06/23/19 24 06/23/2023 urina lysis , dipst ick Nitrates-Sta tus negati ve Not Available [facility] [address], [place], [address], 06/23/2023 15:08:10 06/23/19 24 06/23/2023 urina lysis , dipst ick Blood-Status Large Not Available [facility] [address], [place], [address], 06/23/2023 15:08:10 06/23/19 24 06/23/2023 urina lysis , dipst ick Leuko-Status Negati ve Not Available [facility] [address], [place], [address], 06/23/2023 15:08:10 06/23/19 24 06/23/2023 urina lysis , dipst ick Specimen Type Voided Not Available [facility] [address], [place], [address], 06/23/2023 15:08:10 03/04/20 20 03/03/2020 NM, bone scan, whole body No observ ation record ed. [email or web address] [facility] [address], [place], [address], 03/11/2020 18:09:57 07/04/19 24 07/01/2023 CT, abdom en + pelvi s, w/o contr ast No observ ation record ed. [email or web address] [facility] [address] [place] [address], [place], [address], 09/01/2023 14:40:29 07/18/19 24 07/18/2023 XR, kidne y + urete r + bladd er No observ ation record ed. [email or web address] [facility] [address], [place], [address], 07/22/2023 15:56:19 Result Notes None recorded. Procedures Surgical History Date Name Laterality Status Provider Name and Address Organization Details Recorded Time Bladder Scan completed Rabia matthews [facility] 06/23/2023 15:08:00 Cystoscopy completed Nicola Ware MD [address], [place], [address], [facility] 12/30/2021 17:11:17 Colonoscopy completed Nicola Ware MD [address] [place] [address],[address], [place], [address], [facility] 12/30/2021 17:11:22 Imaging Results Imaging Date Name Status LastModified by Organiz ation Details LastModified Time 03/03/2020 NM, bone scan, whole body completed [email or web address] [facility] [address], [place], [address], 03/11/2020 18:09:57 07/01/2023 CT, abdomen + pelvis, w/o contrast completed [address] [facility] [address], [place], [address], 09/01/2023 14:40:29 07/18/2023 XR, kidney + ureter + bladder completed [email or web address] [address], [place], [address], 07/22/2023 15:56:19 Procedure Notes None recorded. Medical [...] PY PREP INSTRUCTI ONS RECEIVED FROM [facility] active Not Available Not Available No t Available furosemide 20 mg tablet TAKE 1 TABLET BY MOUTH DAILY active Not Available Not Available No t Available cefuroxime axetil 500 mg tablet active Not Available Not Available No t Available polyethylen e glycol 3350 17 gram/dose oral powder MIX AND DRINK DIRECTED IN [facility] PY PREP INSTRUCTI ONS RECEIVED FROM [facility] active Not Available Not Available No t [...] Updated DateTime 12/30/2021 177.8 cm 27.4 kg/m2 86405.14 g Nicola Ware MD [address], [address], [facility] 12/30/2021 17:10:12 Date Recorded Body height Body mass index (BMI) Body weight Provider Name and Address Organization Details Last Updated DateTime 03/12/2022 177.8 cm 27.4 kg/m2 74962.14 g Rabia Ferrell [facility] 03/12/2022 13:55:47 Social History Question Answer Notes LastModified by Organizat ion Details LastModified Time Tobacco Smoking Status Never Smoker Nicola Ware MD [address], [address], [facility] 12/30/2021 17:11:00 What Is Your Level [...] Encounter Closed Date Diagnosis/Indication Diagnosis SNOMED-CT Code [id number] MD MICHELLE [facility] [address] [place] [address] 12/30/2021 16:01:19 01/01/2022 09:36:50 Increased frequency of urination [id number] Malignant tumor of prostate 619648810 Hydronephrosis [id number] Aliza Landeros [facility] [address] [place] [address] 03/12/2022 13:13:50 03/15/2022 14:00:47 Increased frequency of urination [id number] Malignant tumor of prostate [id number] Hydronephrosis [id number] [id number] MD MICHELLE [facility] [address] [place] [address] 06/23/2023 14:16:52 06/24/2023 08:40:38 Blood in urine [id number] Health Concerns Section Related Observation LastModified by Organization Detai ls LastModified Time None Recorded Concern Status LastModified by Organization Details LastModified Time None Recorded Advance Directives Directive None Recorded Payers Encounter Date Sequence Insurance Name Policy Number Policy Krishnan Covered Member ID Krishnan Member ID Guarantor Name 06/23/2023 1 [employer] (MEDICARE REPLACEMENT/ ADVANTAGE - PPO) [id number] José Miguel D Braucher [id number] José Miguel D Braucher 03/12/2022 1 [employer] (MEDICARE REPLACEMENT/ ADVANTAGE - PPO) [id number] José Miguel D Braucher [id number] José Miguel D Braucher 12/30/2021 1 [employer] (MEDICARE REPLACEMENT/ ADVANTAGE - PPO) [id number] José Miguel D Braucher [id number] José Miguel D Braucher Notes Date Note [...] some of the history. Nicola Ware MD [address] [place] [address],[address], [place], [address], [place] [facility] 12/30/2021 23:07:10 03/12/2022 text/html HPI [...] some of the history. Nicola Ware MD [address] [place] [address],[address], [place], [address], [facility] 03/12/2022 17:21:47 06/23/2023 text/html HPI Notes: 83 Y male here after calling triage this AM with hematuria/pain with urination. Patient has stent in place, last exchange 02/08/2022. 06/23/23 visit completed by Curry Ware MD [address] [place] [address],[address], [place], [address], [facility] 06/23/2023 16:19:33
--- OUTSIDE RECORDS SUMMARY | 2023-09-23 12:50 | XMS_ITS | Clinical Summary ---
Author Organization [employer] [facility] Address [place], [place] [address] Care Team Providers Care Investigator Narcotics Name Role Phone Cesar Mccollum MD Primary Care Provider Nicola Mcgarry MD Unavailable [phone] Mireya Tan MD Unavailable [phone] Allergies No known active allergies Medications Medication Sig Dispensed Refills Start Date End Date Status nitroglycerin (NITROSTAT) 0.4 mg SL tabletIndications:Carli st pain on exertion Place 1 tablet under the tongue every 5 minutes if needed for Chest Pain (may take up to 3 tablets SL x 3 q 5 minutes). 1 Bottle 11/02/2019 Active enzalutamide (XTANDI) 40 mg capsuleIndications:Pr ostate cancer (HC) Take 120 mg by mouth [...] once daily. Active rivaroxaban (XARELTO) 10 mg tabletIndications:teena p vein thrombosis prevention Take 1 Tablet (10 mg) by mouth once daily with evening meal. 0 12/02/2022 Active calcium carbonate (Calcium 600) 600 mg calcium (1,500 mg) tablet Take 600 mg by mouth two times daily with meals. Active iron, carbonyl (Perfect Iron) 25 mg iron tab Take by mouth. 04/05/2023 Active rosuvastatin (CRESTOR) 40 mg tabletIndications:Hyp erlipidemia, unspecified hyperlipidemia type TAKE 1 TABLET(40 MG) BY MOUTH AT BEDTIME 90 Tablet 3 05/09/2023 Active naproxen (NAPROSYN) 500 mg tabletIndications:Oth er hydronephrosis Take 0.5-1 Tablets (250-500 mg) by mouth every 12 hours if needed for Pain. 5 Tablet 07/18/2023 Active amLODIPine (NORVASC) 10 mg tabletIndications:Leroy ign essential HTN TAKE 1 TABLET(10 MG) BY MOUTH EVERY DAY 90 Tablet 2 07/21/2023 Active clopidogreL (PLAVIX) 75 mg tabletIndications:Cor onary artery disease, unspecified vessel or lesion type, unspecified whether angina present, unspecified whether point hope ira or transplanted heart Take 1 Tablet (75 mg) by mouth every morning. 90 Tablet 3 07/21/2023 Active metoprolol succinate (TOPROL XL) 50 mg sustained-release tabletIndications:Hyp ertension, unspecified type Take 1 Tablet (50 mg) by mouth once daily. 90 Tablet 3 07/21/2023 Active tamsulosin (FLOMAX) 0.4 mg capsuleIndications:BP H without urinary obstruction Take 1 Capsule (0.4 mg) by mouth once daily after a meal. 90 Capsule 3 07/21/2023 Active trimethoprim-sulfamet hoxazole, 160-800 mg, (BACTRIM DS, SEPTRA DS) tabIndications:Compli cated UTI (urinary tract infection) Take 1 Tablet by mouth two times daily for 7 days. 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 TEM=432.87 Bladder mass 02/29/2020 04/30/2020 Hematuria 02/29/2020 03/05/2020 Acute deep vein thrombosis (DVT) 02/29/2020 11/20/2020 S/P coronary angioplasty 11/03/2016 Chest pain 09/15/2016 03/05/2020 Elevated prostate specific antigen (PSA) 10/06/2010 03/05/2020 Hip arthritis 10/06/2010 03/05/2020 Colon polyp 07/15/2010 PATRICE (acute kidney injury) Obstructive uropathy 020 Encounters Date Type Department Care Team Description 09/22/2023 10:30 AM CDT Orders Only [facility] [address] [place] [address] Lab, [place] Lab 09/22/2023 9:50 AM CDT Nurse/Clinic Staff Only [facility] [address] [facility] [address] Dressing Change 09/22/2023 Telephone [facility] [address] [place] [address] Cesar Mccollum MD Results 09/22/2023 Travel 09/21/2023 3:20 PM CDT Nurse/Clinic Staff Only [facility] [address] [place] [address] Procedure (UA collection from jon and neph tube) 09/21/2023 Telephone [facility] [address] [place] [address] Letty Mera MD 09/20/2023 2:15 PM CDT Ancillary Procedure [facility] [address] [place] [address] Arrived 09/20/2023 1:00 PM CDT Office Visit [facility] [address] [place] [address] Letty Mera MD Hospital F/U (Admission Date: 09/09/2023 Discharge Date: 09/15/23); Wound Check (sacrum & neph tube site. ); Home Care; Concerns (Feels like catheter is falling out - pt states that it is leaking. ) 09/20/2023 Travel 09/15/2023 Transcribe Orders [facility] [address] [place] [address] Provider, Non-[facility] 09/13/2023 Telephone [facility] [address] [place] [address] Cesar Mccollum MD Procedure (social work supervisor) 08/31/2023 Transcribe Orders [facility] [address] [place] [address] Senthil Alvarez MD 08/30/2023 Orders Only [facility] Scanner 1 scan: (1-Ord) [place], -ABDOMEN RENAL, 08/30/2023 08/23/2023 Transcribe Orders [facility] [address] [place] [address] Provider, Non-[facility] 08/13/2023 Orders Only [facility] Scanner 1 scan: (1-Ord) [facility], ABDOMEN/PELVIS W/O, 08/13/2023 08/04/2023 11:30 AM CDT Office Visit [facility] [address] [place] [address] Sandip Garcia, AuD Hearing Aid 08/04/2023 Travel 08/02/2023 2:30 PM CDT Orders Only [facility] [address] [place] [address] Lab, [place] [facility] 08/02/2023 Travel 08/02/2023 Orders Only [facility] [address] [place] [address] Cesar Mccollum MD <No scans attached> 07/21/2023 8:55 AM CDT Office Visit [facility] [address] [place] [address] Cesar Mccollum MD Medicare ANNUAL (subsequent) Visit (83 year old); Post Procedure (Uteretal stent exchange) 07/21/2023 Travel 07/18/2023 10:00 AM CDT Anesthesia Event [facility] [address], [place] [address] Leonardo Frankel MD Purdy, Adam John, GAVIN 07/18/2023 9:45 AM CDT - 07/18/2023 10:54 AM CDT Surgery [facility] [address] [place] [address] Nicola Mcgarry MD CYSTOSCOPY EXCHANGE, RIGHT URETERAL STENT 07/18/2023 7:41 AM CDT - 07/18/2023 3:26 PM CDT Hospital Encounter [facility] [address] [place] [address] Nicola Mcgarry MD Other hydronephrosis (Primary Dx) Discharge Disposition: Home Self Care 07/18/2023 Travel 07/15/2023 8:20 AM CDT Preop Visit [facility] [address] [place] [address] Shannan Bain, Pre-Op Exam (/BLADDER SURGERY [facility] DR. MCGARRY 07/18/23) 07/15/2023 Travel 07/11/2023 Orders Only [facility] Scanner 1 scan: (1-Ord) [facility], CLINICAL LABORATORY REPORT, 07/11/2023 07/06/2023 Telephone [facility] [address] [place] [address] Cesar Mccollum MD Follow Up 07/05/2023 4:00 PM CDT Orders Only [facility] [address] [place] [address] Lab, [place] [facility] 07/05/2023 Travel 07/05/2023 Orders Only [facility] [address] [place] [address] Cesar Mccollum MD <No scans attached> 07/01/2023 8:30 AM CDT Ancillary Procedure [facility] [address] [place] [address] 07/01/2023 Travel 06/25/2023 Orders Only [facility] Scanner 1 scan: (1-Ord) [facility], MULTIPLE LABS, 06/25/2023 06/23/2023 Transcribe Orders [facility] [address] [place] [address] Nicola Mcgarry MD from Last 3 Months Immunizations Name Administration Dates Next Due COVID-19 Vaccine Spikevax (M oderna 50mcg/0.5mL) 12YO+ [id number] Formula PF 07/21/2023,03/08/2023 COVID-19 vaccine (Pfizer-Bio NTech 30mcg/0.3mL) 12YO+ BIVALENT PF, V 09/13/2022,01/28/2022 COVID-19 vaccine (Pfizer-Bio NTech 30mcg/0.3mL) 12YO+ DAYRON-SUCROSE PF, MDV 08/26/2021 COVID-19 vaccine (Hitpost NTech 30mcg/0.3mL) PF, MDV 01/13/2021,06/17/2020,2020 Influenza, Inactivated [...] Sign Reading Time Taken Comments Blood Pressure 105/66 09/22/2023 10:25 AM CDT Pulse 75 09/22/2023 10:25 AM CDT Temperature 36.9 ??C (98.4 ??F) 09/22/2023 10:15 AM C DT Respiratory Rate 16 07/18/2023 12:15 PM CDT Oxygen Saturation 100% 09/22/2023 10:25 AM CDT Inhaled Oxygen Concentration - - Weight 82.2 kg (181 lb 4 oz) 09/20/2023 1:01 PM CDT Height 177.1 cm (5' 9.72) 07/21/2023 9:05 AM CD T Body Mass Index 26.21 07/21/2023 9:05 AM CDT Plan of Treatment Upcoming Encounters Date Type Department Care Team (Late st Contact Info) Description 09/29/2023 1:40 PM CDT Office Visit [facility] [address] [place] [address] Cesar Mccollum MD [address] [place] [address] 10/04/2023 1:00 PM CDT Office Visit [facility] [address] [place] [address] Regan Miller MD [address] [place] [address] Health Maintenance Due Date Last Done Comments Zoster (shingles) series for age 50+ (1 of 2) 1959 COVID-19 vaccine series (2022- season) 2023 07/21/2023, 03/08/2023, 09/13/2022, Additional history [...] Completed 4 Medical Devices Implanted Type Area Air Pollution Control Engineer Device Identifier Shelf Expiration Date Model / Serial / Lot Stent Uret [id number] Contour - [id number] Implanted:Qty: 1 on 07/18/2023 by Nicola Mcgarry MD at [facility] Right: Ureter [facility] 02/27/2026 [id number] / / [id number] Procedures Procedure Name Priority Date/Time Associated Diagnosis Comments CBC WITH AUTO DIFFERENTIAL Routine 09/22/2023 10:39 AM CDT Leukocytosis, unspecified type CBC WITH AUTO DIFFERENTIAL Routine 09/22/2023 10:39 AM CDT Leukocytosis, unspecified type URINE CULTURE Routine 09/21/2023 4:40 PM CDT Complicated UTI (urinary tract infection) URINE CULTURE Routine 09/21/2023 4:25 PM CDT Complicated UTI (urinary tract infection) XR CHEST 2 VIEWS PA AND LATERAL Routine 09/20/2023 2:36 PM CDT Wound of sacral region, subsequent encounter CBC WITH AUTO DIFFERENTIAL Routine 09/20/2023 2:17 PM CDT Radiation 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 WHITE BLOOD COUNT 11.0 4.5 - 11.0 thou/cu mm 09/22/2023 10:46 AM CDT [facility] RED BLOOD COUNT 2.81(L) 4.30 - 5.90 mil/cu mm 09/22/2023 10:46 AM CDT [facility] HEMOGLOBIN 8.0(L) 13.5 - 17.5 g/dL 09/22/2023 10:46 AM CDT [facility] HEMATOCRIT 25.2(L) 37.0 - 53.0 % 09/22/2023 10:46 AM CDT [facility] MCV 90 80 - 100 fL 09/22/2023 10:46 AM CDT [facility] MCH 28.5 26.0 - 34.0 pg 09/22/2023 10:46 AM CDT [facility] MCHC 31.7(L) 32.0 - 36.0 g/dL 09/22/2023 10:46 AM CDT [facility] RDW 17.5(H) 11.5 - 15.5 % 09/22/2023 10:46 AM CDT [facility] PLATELET COUNT 466(H) 140 - 440 thou/cu mm 09/22/2023 10:46 AM CDT [facility] MPV 8.9 6.5 - 11.0 fL 09/22/2023 10:46 AM CDT [facility] % NEUT 86.3 % 09/22/2023 10:46 AM CDT [facility] % LYMPH 6.6 % 09/22/2023 10:46 AM CDT [facility] % MONO 5.8 % 09/22/2023 10:46 AM CDT [facility] % EOS 1.2 % 09/22/2023 10:46 AM CDT [facility] % BASO 0.1 % 09/22/2023 10:46 AM CDT [facility] ABSOLUTE NEUTROPHILS 9.5(H) 1.7 - 7.0 thou/cu mm 09/22/2023 10:46 AM CDT [facility] ABSOLUTE LYMPHOCYTES 0.7(L) 0.9 - 2.9 thou/cu mm 09/22/2023 10:46 AM CDT [facility] ABSOLUTE MONOCYTES 0.6 <0.9 thou/cu mm 09/22/2023 10:46 AM CDT [facility] ABSOLUTE EOSINOPHILS 0.1 <0.5 thou/cu mm 09/22/2023 10:46 AM CDT [facility] ABSOLUTE BASOPHILS 0.0 <0.3 thou/cu mm 09/22/2023 10:46 AM CDT [facility] Blood BLOOD SPECIMEN / Unknown Venipuncture / Unknown 09/22/2023 10:39 AM CDT 09/22/2023 10:43 AM CDT Letty Mera MD HEMATOLOGY [facility] [address] [place] [address], [place] [phone] * (ABNORMAL) URINE CULTURE (09/21/2023 4:25 PM CDT) CULTURE RESULT(A) 09/23/2023 10:16 AM CDT [facility] CULTURE >100,000 CFU/mL Enterococcus faecalis 09/23/2023 10:16 AM CDT [facility] CULTURE >100,000 CFU/mL Multiple organisms probable contaminants 09/23/2023 10:16 AM CDT [facility] CULTURE 10,000-50,000 CFU/mL Enterobacter cloacae complex 09/23/2023 10:16 AM CDT [facility] Comment: May develop resistance during prolonged therapy with 3rd-generation cephalosporins as a result of derepression of AmpC beta-lactamase. ??Therefore, isolates that are initially susceptible may become resistant within 3 to 4 days after initiation of therapy. ??Testing repeat isolates may be warranted. Oral cephalosporins are also not recommended. Urine URINE SPECIMEN / Unknown Non-Blood / Unknown 09/21/2023 4:25 PM CDT 09/21/2023 4:40 PM CDT Narrative [facility] - 09/23/2023 10:16 AM CDT Specimen appears contaminated. No further workup pending. Letty Mera MD MICROBIOLO GY [facility] [address] [place] [address], [place] * XR CHEST 2 VIEWS PA AND LATERAL (09/20/2023 2:36 PM CDT) Anatomical Region Laterality Modality CHEST, THORAX, Lung, HEART Compu giulia Radiography 09/22/2023 7:18 AM CDT Impressions 09/22/2023 7:18 AM CDT Linear subsegmental atelectasis in the lingula. No infiltrate. Dictated by Manav Thompson MD @ 09/22/2023 7:18:05 AM (Electronically Signed) Narrative 09/22/2023 7:18 AM CDT For Patients: ??As a result of the Cures Act, medical imaging exams and procedure reports are released immediately into your electronic medical record. ??You may view this report before your referring provider. ??If you have questions, please contact your health care provider. INDICATION: Sacral wound TECHNIQUE: Chest 2 views COMPARISON: None FINDINGS: Coronary artery stents. Linear subsegmental atelectasis within the lingula. Right lung clear. No pleural effusion or pulmonary edema. Degenerative changes. Cardiac silhouette nonenlarged. Procedure Note Manav Thompson MD - 09/22/2023 For Patients: As a result of the Cures Act, medical imagingexams and procedure reports are released immediately into your electronicmedical record. You may view this report before your referring provider.If you have questions, please contact your health care provider. INDICATION: Sacral wound TECHNIQUE: Chest 2 views COMPARISON: None FINDINGS: Coronary artery stents. Linear subsegmental atelectasis within thelingula. Right lung clear. No pleural effusion or pulmonary edema.Degenerative changes. Cardiac silhouette nonenlarged. IMPRESSION: Linear subsegmental atelectasis in the lingula. No infiltrate. Dictated by Manav Thompson MD @ 09/22/2023 7:18:05 AM (Electronically Signed) Letty Mera MD GENERAL IM AGING * SCAN-ULTRASOUND REPORT (08/30/2023 12:00 AM CDT) Anatomical Region Laterality Modality Other Scanner OTHER * SCAN-CT INTERPRETATION (08/13/2023 12:00 AM CDT) Anatomical Region Laterality Modality Other Scanner OTHER * (ABNORMAL) HEMOGLOBIN (08/02/2023 2:26 PM CDT) Only the most recent of3 resultswithin the time period is included. HEMOGLOBIN 10.1(L) 13.5 - 17.5 g/dL 08/02/2023 2:31 PM CDT [facility] MCV 89 80 - 100 fL 08/02/2023 2:31 PM CDT [facility] Blood BLOOD SPECIMEN / Unknown Venipuncture / Unknown 08/02/2023 2:26 PM CDT 08/02/2023 2:26 PM CDT Cesar Mccollum MD HEMATOLOGY [facility] [address] [place] [address], [place] [phone] * HEMOGLOBIN A1C SCREENING (07/21/2023 9:58 AM CDT) Pathologist [facility] HEMOGLOBIN A1C SCREENING 5.4 <=6.4 % 07/21/2023 5:56 PM CDT [facility] Blood BLOOD SPECIMEN / Unknown Venipuncture / Unknown 07/21/2023 9:58 AM CDT 07/21/2023 10:00 AM CDT Narrative [facility] - 07/21/2023 5:56 PM CDT ? (<5.7%) ?Normal ? (5.7% to 6.4%) ? Indicates prediabetes ? (>=6.5%) ? Confirms diabetes Falsely low levels may be seen with: Recent Transfusion, Recent Significant Blood Loss, Hemolytic Diseases, or Falsely elevated levels may be seen with: Untreated Anemias, Splenectomy Cesar Mccollum MD CHEMISTRY [facility] [address] [place] [address], [place] * XR RETROGRADE PYELOGRAM W/WO KUB [...] - 1.20 mg/dL 07/15/2023 5:14 PM CDT [facility] BUN/CREAT RATIO 17 10 - 20 4 5:14 PM CDT [facility] TRAL [...] 9:40 AM CDT Shannan Bain DO [facility] [address] [address], * SCAN-LABORATORY REPORT (07/11/2023 12:00 AM CDT) Only the most recent of2 resultswithin the time period is included. Scanner OTHER * CT ABDOMEN PELVIS WO (07/01/2023 8:44 AM CDT) Anatomical Region Laterality Modality Abdomen, Pelvis, AORTA, LIVER, SPLEEN Computed Tomography 07/01/2023 1:40 PM CDT Narrative 07/01/2023 1:40 PM CDT For Patients: ??As a result of the 21st Century Cures Act, medical imaging exams and [...] Code Status Discussion: Reviewed Preferences Care Teams Investigator Narcotics Relationship Specialty Start Date End Date Cesar Mccollum MD [address] [place] [address] PCP - General Family Practice 03/04/20 Nicola Mcgarry MD [address] [employer] [place] [place] [phone] Surgery - Urology 03/13/20 Mireya Tan MD [address] [employer] [place] [place] [phone] Hematology - Pathology 03/13/20
--- OUTSIDE RECORDS SUMMARY | 2023-09-23 12:50 | XMS_ITS | Continuity of Care Document ---
Author Organization [facility] Address [address] [place] [address] Care Team Providers Care Remote Encoding Operations Supervisor Name Role Phone MASOUD SAUER Primary Care Provider [phone] Assessment No assessment recorded. Plan of Treatment Reminders Order Date Submit Date Provider Last Modified By Organization Details Last Modified Time Details Appointments None recorded . Lab urinalys is, dipstick 2023 024 [email or web address] [facility], [address], [place], [address], 4 15:08:54 culture, urine 2023 024 [facility], [address] [facility], [place] [address], [address], 4 10:11:11 Referral None recorded . Procedures None recorded . Surgeries None recorded . Imaging None recorded . Medication Orders Bactrim DS 800 mg-160 mg tablet 2023 024 [email or web address] [id number], [address] [place], [place], [phone], 4 16:19:28 Patient TargetsNo targets recorded. Patient InstructionsNo instructions recorded. Reason for Referral None Reported. Results Created Date Observation Date Name Description Value Unit Range Abnormal Flag LastModifiedBy Organization Detail LastModifiedTime 06/23/19 24 06/23/2023 urina lysis , dipst ick Color-Status Red Not Available [facility] [address], [place], [address], 06/23/2023 15:08:10 06/23/19 24 06/23/2023 urina lysis , dipst ick pH-Status 7.5 Not Available [facility] [address], [place], [address], 06/23/2023 15:08:10 06/23/19 24 06/23/2023 urina lysis , dipst ick Protein-Stat us >=9.0 Not Available [facility] [address], [place], [address], 06/23/2023 15:08:10 06/23/19 24 06/23/2023 urina lysis , dipst ick Nitrates-Sta tus negati ve Not Available [facility] [address], [place], [address], 06/23/2023 15:08:10 06/23/19 24 06/23/2023 urina lysis , dipst ick Blood-Status Large Not Available [facility] [address], [place], [address], 06/23/2023 15:08:10 06/23/19 24 06/23/2023 urina lysis , dipst ick Leuko-Status Negati ve Not Available [facility] [address], [place], [address], 06/23/2023 15:08:10 06/23/19 24 06/23/2023 urina lysis , dipst ick Specimen Type Voided Not Available [facility] [address], [place], [address], 06/23/2023 15:08:10 07/04/19 24 07/01/2023 CT, abdom en + pelvi s, w/o contr ast No observ ation record ed. [email or web address] [facility] [address], [place], [address], 09/01/2023 14:40:29 07/18/19 24 07/18/2023 XR, kidne y + urete r + bladd er No observ ation record ed. [email or web address] [facility] [address], [place], [address], 07/22/2023 15:56:19 Result Notes None recorded. Procedures Surgical History Date Name Laterality Status Provider Name and Address Organization Details Recorded Time Bladder Scan completed Rabia Ferrell [facility] 06/23/2023 15:08:00 Cystoscopy completed Nicola Ware MD [address] [place] [address], [phone], [facility] 12/30/2021 17:11:17 Colonoscopy completed Nicola Ware MD [address] [place] [address],[address], [address], [facility] 12/30/2021 17:11:22 Imaging [...] PREP INSTRUCTI ONS RECEIVED FROM [facility] active Not Available Not Available No t Available furosemide 20 mg tablet TAKE 1 TABLET BY MOUTH DAILY active Not Available Not Available No t Available cefuroxime axetil 500 mg tablet active Not Available Not Available No t Available polyethylen e glycol 3350 17 gram/dose oral powder MIX AND DRINK DIRECTED IN COLONOSCO PY PREP INSTRUCTI ONS RECEIVED FROM [facility] active Not Available Not Available No t [...] Status Never Smoker Nicola Ware MD [address] [facility] [address], [place], [address], [facility] 12/30/2021 17:11:00 What Is Your Level [...] Encounter Closed Date Diagnosis/Indication Diagnosis SNOMED-CT Code [id number] Nicola Ware MD [facility] [address] [place] [address] 06/23/2023 14:16:52 06/24/2023 08:40:38 Blood in urine [id number] Health Concerns Section Related Observation LastModified by Organization Detai ls LastModified Time None Recorded Concern Status LastModified by Organization Details LastModified Time None Recorded Payers Encounter Date Sequence Insurance Name Policy Number Policy Krishnan Covered Member ID Krishnan Member ID Guarantor Name 06/23/2023 1 [employer] (MEDICARE REPLACEMENT/ ADVANTAGE - PPO) [id number] José Miguel Vega [id number] José Miguel Vega Notes Date Note Type Note Provider Name and Address Organization Details Recorded Time 06/23/2023 text/html HPI Notes: 83 Y male here after calling triage this AM with hematuria/pain with urination. Patient has stent in place, last exchange 02/08/2022. 06/23/23 visit completed by Curry Ware MD [address] [place] [address],[address], [address], [facility] 06/23/2023 16:19:33
== END 2023-09-23 12:43 | disposition home or self-care (01) ==
LOC: WOUND 12:42
PROVIDERS: PCP Family Medicine; Visit Provider Nurse Practitioner Family
DX: L89.153 Pressure ulcer of sacral region, stage 3 (principal); N30.41 Irradiation cystitis with hematuria; K62.7 Radiation proctitis; C61 Malignant neoplasm of prostate; Y84.2 Radiological procedure and radiotherapy as the cause of abnormal reaction of the patient, or of later complication, without mention of misadventure at the time of the procedure
CPT/HCPCS: 97597

== ENCOUNTER 2023-09-26 14:32 | Outpatient (CLI) | payer MEDICARE, OTHER, SELFPAY ==
--- OUTSIDE RECORDS SUMMARY | 2023-09-26 14:34 | XMS_ITS | Clinical Summary ---
Author Organization [facility] Address [address] [place] [address] Care Team Providers Care Clerk General Office Name Role Phone Cesar Mccollum Primary Care Provider [phone] Allergies No known active allergies Medications Medication [...] this topic Medical Devices Implanted Type Area Flight Communications Specialist Device Identifier Shelf Expiration Date Model / Serial / Lot Stent Ureteral Polaris Ultra [id number] - [id number] Implanted:Qty : 1 on 02/08/2022 by Nicola Ware MD at [facility] Stent Right: Ureter [employer] [id number] 10/08/2024 [id number] / [id number] Explanted Type Area Flight Communications Specialist Device Identifier Shelf Expiration Date Model / Serial / Lot Stent Came Out Of The Right Ureter Explanted:Qty: 1 on 02/08/2022 by Nicola Ware MD at 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
--- OUTSIDE RECORDS SUMMARY | 2023-09-26 14:34 | XMS_ITS | Referral Summary ---
Author Organization [facility] Address [address] [place] [address] Care Team Providers Care Spanish Instructor Name Role Phone Cesar Mccollum Primary Care Provider [phone] Allergies No known active allergies Medications Medication [...] on file Medical Devices Implanted Type Area Broadcast Checker Device Identifier Shelf Expiration Date Model / Serial / Lot Stent Ureteral Polaris Ultra [id number] - [id number] Implanted:Qty : 1 on 02/08/2022 by Nicola Ware MD at [facility] Stent Right: Ureter [employer] [id number] 10/08/2024 [id number] Explanted Type Area Broadcast Checker Device Identifier Shelf Expiration Date Model / Serial / Lot Stent Came Out Of The Right Ureter Explanted:Qty: 1 on 02/08/2022 by Nicola Ware MD at [facility] Right: Urethra Advance Directives For more information, please contact: [phone] Documents on File Type Date Recorded Patient Program Director Expl anation Advance Directives and Living Will 02/17/2022 Health Care Directiv e 05/15/2021 Healthcare Agents on File Name Relationship Healthcare Agent Relationship Communication Mindy Waterman Daughter Co-First Alterna te Health Care Agent Meera Vega Spouse Health Care Agent [phone] (Home) Favio Vega Son Co-First Altern ate Health Care Agent Tereso Vega Son Co-First Alterna te Health Care Agent Care Teams Spanish Instructor Relationship Specialty Start Date End Date Cesar Mccollum [address] [place] [address] PCP - General Family Medicine 11/22/22
--- OUTSIDE RECORDS SUMMARY | 2023-09-26 14:35 | XMS_ITS ---
Author Organization [facility] Address [address] [place] [address] Care Team Providers Care Second Cutter Name Role Phone Unavailable Unavailable Unavailable Surgery Details Not on file Complications Check Surgery Details section. Procedure Estimated Blood Loss Check Surgery Details section. Procedure Findings Check Surgery Details section. Procedure Specimens Taken Check Surgery Details section.
--- OUTSIDE RECORDS SUMMARY | 2023-09-26 14:35 | XMS_ITS | Referral Summary ---
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 For routine questions regarding patient records, call [phone] during business hours, M-F 8:00 AM - 5:00 PM Central Time. Record requests for emergency care only can be directed to [phone] at any time.[facility] Encounters Date Type Department Care Team Description 09/21/2023 Clinical Communication Department of Urology in [place], [place] [address] [place] [phone] Paula Hernandez M.D. 09/16/2023 Clinical Communication Department of Urology in [place], [place] [address] [place] [phone] Provider, Unknown follow up questions 09/16/2023 Orders Only Department of Urology in [place], [place] [address] [place] [phone] Paula Hernandez M.D. Hematuria Gross (Primary Dx) 09/15/2023 Clinical Communication [facility] [address] [place] [phone] Yasmine Loco 09/09/2023 7:24 AM CDT - 09/15/2023 5:28 PM CDT Hospital Encounter [facility], [facility] [place], [facility], Sixth Floor [address] [place] [phone] Gerri Merrill M.D., Ph.D. Sumit Holbrook M.D. Hematuria (Primary Dx) Discharge Disposition: Home or Self Care 09/09/2023 12:10 PM CDT Ancillary Procedure Department of Nursing 09/09/2023 Documentation Department of Urology in [place], [place] [address] [place] [phone] Ko Victoria M.D. 09/06/2023 Orders Only Section of Hyperbaric Medicine in [place], [place] [address] [place] [phone] Kira Ferraro APRN, C.N.P., M.S.N. 09/06/2023 Clinical Communication [facility] [address] [place] [phone] Yasmine Loco 08/30/2023 7:35 PM CDT - 09/05/2023 4:09 PM CDT Hospital Encounter [facility], First Floor [address] [place] [phone] Kirstin Hughes M.D. Mayur Alvarez M.D. Hematuria (Primary Dx); Tachycardia; Hematuria Gross Discharge Disposition: Home-Health Care [facility] 09/01/2023 10:05 AM CDT Ancillary Procedure Department of Nursing 08/31/2023 12:25 PM CDT Ancillary Procedure Department of General Surgery 08/31/2023 12:34 PM CDT Anesthesia Event [facility] [address] [place] [phone] Joe Stoll M.D. Gran, Terry L, APRN, CRNA 08/31/2023 12:36 PM CDT - 08/31/2023 2:31 PM CDT Surgery [facility] [address] [place] [phone] Mayur Alvarez M.D. CYSTOSCOPY EVACUATION CLOTS 08/30/2023 Documentation Department of Urology in [place], [place] [address] [place] [phone] Corin Ring M.D. 08/30/2023 Intake [facility] 08/26/2023 Orders Only Department of Urology in [place], [place] [address] [place] [phone] Paula Hernandez M.D. 08/13/2023 3:42 PM CDT - 08/26/2023 4:11 PM CDT Hospital Encounter [facility], Sixth Floor [address] [place] [phone] Darnell Garcia M.D. Chow, George K, M.D. Decline Functional Status [R53.81] (Primary Dx); Hematuria [R31.9] Discharge Disposition: Home or Self Care 08/23/2023 12:45 AM CDT Ancillary Procedure Department of Nursing 08/15/2023 8:30 AM CDT Anesthesia Event [facility] [address] [place] [phone] Hayde Song M.D. 08/15/2023 7:55 AM CDT - 08/15/2023 11:23 AM CDT Surgery [facility] [address] [place] [phone] Boubacar Brock M.D. Palliative EXPLORATORY LAPAROTOMY, CYSTOTOMY CLOSURE, RIGHT URETERAL STENT EXCHANGE 08/13/2023 4:35 PM CDT Ancillary Procedure Department of Radiology in [place], [place] [address] [place] [phone] Carlos Alberto Henson M.D. 08/13/2023 Intake RST [...] irritation. 30 g 4 09/09/19 24 Discontinued sulfamethoxazol e-trimethoprim (BACTRIM DS) 800-160 mg per [...] Tobacco: Never Tobacco Cessation:Counseling Given: Not Answered [facility] Utilities Answer Date Recorded In the past 12 months has [facility] [employer], gas, oil, or water [employer] threatened to shut off services in your [...] money to buy more. Never true 09/09/19 Within the past 12 months, t he [...] your living situation today? [facility] a [facility] place [facility] live 09/09/2023 Sex and [...] CDT Procedure visit Department of Urology in [place], [place] [address] [place] [phone] Paula Hernandez M.D. [address] [place] [phone] Medical Devices Implanted Type Area It Communications Manager Device Identifier Shelf Expiration Date Model / Serial / Lot Clp Hrzn Ti 6 Clp Lg Orng - [id number] Implanted:Qt y: 1 on 08/15/2023 by Boubacar Brock M.D. at [facility] Hardware e.g. pins/screws /rods Abdomen [employer] [id number] 02/29/2028 [id number] / / [id number] Clp Hrzn Ti 6 Clp Lg Orng - [id number] Implanted:Qt y: 1 on 08/15/2023 by Boubacar Brock M.D. at [facility] Hardware e.g. pins/screws /rods Abdomen [employer] [id number] 02/29/2028 [id number] / / [id number] Clp Hrzn Ti 6 Clp Md Monty - [id number] Implanted:Qt y: 1 on 08/15/2023 by Boubacar Brock M.D. at [facility] Hardware e.g. pins/screws /rods Abdomen [employer] [id number] 03/13/2028 [id number] / / [id number] 1 Clp Hrzn Ti 6 Clp Md Monty - [id number] Implanted:Qt y: 1 on 08/15/2023 by Boubacar Brock M.D. at [facility] Hardware e.g. pins/screws /rods Abdomen [employer] [id number] 03/21/2028 [id number] / / [id number] 3 Stnt Uret Inl 6fx24 - [id number] Implanted:Qt y: 1 on 08/15/2023 by Jakob De Paz M.D. at [facility] Ureteral Stent N/A: Ureter [employer] [id number] 11/18/2027 [id number] / / [id number] Procedures Procedure Name Priority Date/Time Associated Diagnosis [...] LINE INSERTION Routine 08/15/2023 9:51 AM CDT GA US GUIDE VASC ACCESS Routine 08/15/2023 9:51 AM CDT GA ARTL CATH/CNULA MONITOR PERC Routine 08/15/2023 9:51 [...] resultswithin the time period is included. Pathologist [facility] Hemoglobin 9.8(L) 13.2 - 16.6 g/dL 09/15/2023 [...] M.D. LAB BLOOD ADD-ON Performing Organization Address [facility] Co de Phone Number [facility] 200 [place], [place] [phone] [place] [address] 200 [place] [address] * Heparin Anti-Xa Assay (09/14/2023 3:19 AM [...] LAB BLOOD NON ADD-ON Performing Organization Address City/[facility]/ZIP Co de Phone Number [facility] 200 [place] [address], [facility] 200 [place] [address] * IR Nephrostomy Tube Placement Left (09/13/2023 2:20 PM CDT) Anatomical Region Laterality Modality Genito Urinary, Vascular Int erventional RST LOS, Vascular Interventional ARZ LOS, Vascular Interventional FLA LOS Left X-Ray Angiography Impressions 09/13/2023 2:33 PM CDT Left 10 Nicaraguan percutaneous nephrostomy tube placement. EP Narrative 09/13/2023 [...] tract was further dilated and a 10 Nicaraguan nephrostomy tube was placed with loop formed [...] sedation timewas: 9 minutes. IMPRESSION: Left 10 Nicaraguan percutaneous nephrostomy tube placement. EP Latisha Whitehead [...] M.D. LAB MICROBIOLOGY - GENERAL ORDERABLES [facility] 200 [place], [place] [address] 200 [place] [address] * Gram Stain (09/13/2023 2:17 PM CDT) Pathologist [facility] Gram Stain No organisms seen. White blood cells, Rare 09/13/2023 9:02 PM CDT DT Fluid (Kidney, Left) 09/13/2023 2:17 PM CDT 09/13/2023 3:56 PM CDT Comment:Specimen Source Site : Fluid Latisha Whitehead M.D. LAB MICROBIOLOGY - GENERAL ORDERABLES Performing Organization Address City/[facility] Co de Phone Number [facility] 200 [place], [place] [phone] [place] [address] 200 [place] [address] * APTT (Activated Partial Thromboplastin Time) (09/13/2023 5:56 AM CDT) Only the most recent of18 resultswithin the time period is included. [facility] Activated Partial Thrombopl Time, P 35 25 - 37 sec 09/13/2023 7:14 AM CDT DT Blood (Blood, Venous) 09/13/2023 5:56 AM CDT 09/13/2023 6:53 AM CDT Sumit Holbrook M.D. LAB BLOOD ADD-ON Performing Organization Address [facility]/ZIP Co de Phone Number [facility] 200 [place], [place] [phone] [place] [address] 200 [place] [address] * (ABNORMAL) Basic Metabolic Panel (09/13/2023 5:56 AM CDT) Only the most recent of14 resultswithin the time period is included. [facility] Potassium, S 3.7 3.6 - 5.2 [...] Paula Hernandez M.D. LAB BLOOD ADD-ON [facility] 200 [place] [address], [facility] [address] [place] [address] * NM Kidney DMSA (09/12/2023 12:21 PM [...] LAB URINE ORDERA BLES Performing Organization Address [facility]/ZIP Co de Phone Number [facility] 200 [place] [address], [facility] 200 [place] [address] * (ABNORMAL) Dipstick, Urine (09/09/2023 11:28 AM [...] LAB URINE ORDERA BLEBryon Performing Organization Address [facility] de Phone Number [facility] [address] [place] [address], [facility] 200 [place] [address] * pH, Random, Urine (09/09/2023 11:28 AM CDT) Only the most recent of2 resultswithin the time period is included. pH, Random, U 6.3 4.5 - 8.0 09/09/2023 12:19 PM CDT DTL Urine 09/09/2023 11:2 8 AM CDT 09/09/2023 11:58 AM CDT Jeffery Church M.D. LAB URINE ORDERA BLES Performing Organization Address [facility] Co de Phone Number [facility] [address] [place] [address], [facility] 200 [place] [address] * (ABNORMAL) Microscopic Manual (09/09/2023 11:28 AM [...] CDT Jeffery Church M.D. LAB URINE MARLONHelga CROWDERBryon Performing Organization Address City/[facility] Co de Phone Number [facility] [address] [place] [address], [address] [address] * (ABNORMAL) Bacterial Culture, Aerobic + Susceptibility, [...] M.D. LAB MICROBIOLOGY - GENERAL ORDERABLES [facility] [address] [place] [address], [place] DTL [place] [address] [place] [address] * (ABNORMAL) Gram Stain, Urine (09/09/2023 11:28 AM CDT) Source Urine, Urine, Straight Catheter 09/09/2023 11:58 AM CDT DTL Gram Stain, U Positive(A) Negative 09/09/2023 12:16 PM CDT DTL Comment: Few Gram-negative bacilli ? Yeast Urine 09/09/2023 11:2 8 AM CDT 09/09/2023 11:58 AM CDT Jeffery Church M.D. LAB URINE ORDERA BLES [facility] [address] [place] [address], [facility] [address] [place] [address] * (ABNORMAL) Urinalysis, with Microscopic: Urine, Straight [...] 09/09/2023 1:02 PM CDT DTL Predicted Range 2480-07081 mg/24 h 09/09/2023 1:02 PM CDT DTL Comment Micro done on <2.5 mL 09/09/2023 12:27 PM CDT DTL Urine (Urine, Straight Catheter) 09/09/2023 11:28 AM CDT 09/09/2023 11:58 AM CDT Jeffery Church M.D. LAB URINE ORDERA SHELLY [facility] [address] [place] [address], [place] DTL [facility] [address] [place] [address] * US Kidneys Bilateral with Bladder (09/09/2023 [...] Jeffery Church M.D. LAB BLOOD ADD-ON [facility] [address] [place] [address], [facility] [address] [place] [address] * (ABNORMAL) CBC with Differential, Blood (09/09/2023 [...] Jeffery Church M.D. LAB BLOOD ADD-ON [facility] [address] [place] [address], [facility] STMA [facility] [address] [place] [address] [facility] [address] [place] [address] * Type and Screen (with Reflex Antibody ID) (09/09/2023 8:03 AM CDT) Only the most recent of6 resultswithin the time period is included. ABORh O Pos Not applicable 09/09/2023 8:47 AM CDT STRM Antibody Screen Negative Negative 09/09/2023 9:02 AM CDT STRM Type & Screen Expiration 09/12/2023 23:59 09/09/2023 8:47 AM CDT STRM Testing Location Marcio DEFAULT 09/09/2023 8:10 AM CDT STR Blood (Blood, Venous) 09/09/2023 8:03 AM CDT 09/09/2023 8:10 AM CDT Jeffery Church M.D. LAB BLOOD BANK T EST ORDERABLES Performing Organization Address [facility] Co de Phone Number [facility] [address] [place] [address], [facility] [address] [place] [address] * Potassium (09/05/2023 4:56 AM CDT) Only the most recent of2 resultswithin the time period is included. Potassium, S 3.6 3.6 - 5.2 mmol/L 09/05/2023 5:49 AM CDT DTL Blood (Blood, Venous) 09/05/2023 4:56 AM CDT 09/05/2023 5:22 AM CDT Roxy Romero M.D. LAB BLOOD ADD-ON Performing Organization Address [facility] de Phone Number [facility] [address] [place] [address], [facility] [address] [place] [address] * FL Fluoro Less Than 1 Hour [...] M.D. IMG FLUOROSCOPY PROCEDURES Performing Organization Address City/[facility]/ZIP Co de Phone Number 152 HOS LOS [...] RAD IMAGI NG PROCEDURES Performing Organization Address [facility] Co de Phone Number IIMS NA * [...] in the bladder lumen. Paula Hernandez M.D. [facility] PROCEDURES * (ABNORMAL) Hemoglobin (08/31/2023 4:21 AM CDT) Hemoglobin 7.8(L) 13.2 - 16.6 g/dL 08/31/2023 4:47 AM CDT DTL Blood (Blood, Venous) 08/31/2023 4:21 AM CDT 08/31/2023 4:35 AM CDT Kimi Vieira M.D., M.S. LAB BLOO D ADD-ON Performing Organization Address City/[facility]/ZIP Co de Phone Number [facility] [address] [facility] 200 [place] [address] * Lactate (08/30/2023 9:50 PM CDT) Lactate, P 1.8 0.5 - 2.2 mmol/L 08/30/2023 10:09 PM CDT STMA Blood (Blood, Venous) 08/30/2023 9:50 PM CDT 08/30/2023 9:55 PM CDT Shannan Correa D.O., M.H.A. LAB BLOOD NON ADD-ON Performing Organization Address City/[facility]/ZIP Co de Phone Number [facility] [address] [facility] 200 [place] [address] * DX Chest AP or PA and [...] included. Ventricular Rate ECG/Min 145 BPM MUSE GA Interval 136 ms MUSE QRSD Interval 64 ms MUSE QT Interval 260 ms MUSE QTC Interval 403 ms MUSE P [employer] Mdl 44 degrees MUSE R [employer] Mdl 9 degrees MUSE T Wave [employer] Mdl -76 degrees MUSE 08/30/2023 7:44 PM CDT [...] tunneled PICC line. NR Paula Hernandez M.D. G IR PROCEDURES * (ABNORMAL) Renal Function Panel [...] Boubacar Brock M.D. LAB BLOOD ADD-ON [facility] [address] [place] [address], [place] DTL [facility] [address] [place] [address] * Magnesium (08/26/2023 3:20 AM CDT) Only the most recent of6 resultswithin the time period is included. Magnesium, S 2.1 1.7 - 2.3 mg/dL 08/26/2023 4:04 AM CDT DT Blood (Blood, Venous) 08/26/2023 3:20 AM CDT 08/26/2023 3:50 AM CDT Boubacar Brock M.D. LAB BLOOD ADD-ON Performing Organization Address [facility]/ZIP Co de Phone Number [facility] [address] [place], [place] [phone] [place] [address] 200 [place] [address] * (ABNORMAL) Phosphorus Inorganic (08/23/2023 9:58 PM CDT) Only the most recent of2 resultswithin the time period is included. [facility] Phosphorus (Inorganic), S 2.1(L) 2.5 - 4.5 mg/dL 08/23/2023 10:45 PM CDT DT Blood (Blood, Venous) 08/23/2023 9:58 PM CDT 08/23/2023 10:30 PM CDT Paula Hernandez M.D. LAB BLOOD ADD-ON Performing Organization Address [facility]/ZIP Co de Phone Number [facility] [address] [place], [place] [address] [place] [address] 200 [place] [address] * Triglycerides (08/23/2023 3:42 AM CDT) Only the most recent of2 resultswithin the time period is included. [facility] Triglycerides 106 mg/dL 08/23/2023 4:50 AM CDT DT Comment: ----REFERENCE VALUE---- Normal: <150 mg/dL Borderline High: 150-199 mg/dL High: 200-499 mg/dL Very High: > or =500 mg/dL Fasting (8 HR or more) Yes 08/23/2023 4:19 AM CDT DTL Blood (Blood, Venous) 08/23/2023 3:42 AM CDT 08/23/2023 4:19 AM CDT Boubacar Brock M.D. LAB BLOOD ADD-ON [facility] [address] [place] [address], [facility] DTL [facility] [address] [place] [address] * Glucose, POCT (08/22/2023 11:38 PM CDT) [facility] Glucose, POCT, B 117 70 - 140 mg/dL 08/23/2023 1:06 AM CDT PCLX Site Capillary 08/23/2023 1:06 AM CDT PCLX Last Intake NPO 08/23/2023 1:06 AM CDT PCLX Blood 08/22/2023 11:3 8 PM CDT 08/23/2023 1:06 AM CDT Unknown Provider LAB POCT ORDERABLES- MANUAL Performing Organization Address [facility]/ZIP Co de Phone Number POC [facility] [address] [place] [address], [facility] PCLX [facility]OC [address] [place] [address] * CT Abdomen Pelvis without IV Contrast [...] distal sigmoid colon likelyrepresenting mild proctocolitis. Paula Botkin M.D. IMG CT PROCEDURES * Creatinine, Body [...] transport rates. All other fluids refer to www.[email or web address] for further interpretive information. This test has been modified from the technologist infectious disease's instructions. Its performance characteristics were determined by [facility] in a manner consistent with CLIA requirements. This test has not been cleared or approved by the U.S. Food and Drug Administration. Fluid Type, Creatinine Fluid, Abdomen 08/22/2023 3:52 PM CDT DTL Fluid (Abdomen) 08/22/2023 3 :30 PM CDT 08/22/2023 6:36 PM CDT Corin Ring M.D. LAB BODY FLUIDS AND STOOLS ORDERABLES [address] [address], [facility] [address] [address] * IR PICC Line Placement (08/22/2023 8:35 AM CDT) Anatomical Region Laterality Modality Chest, Pelvis, Abdomen, Vasc ular Interventional RST LOS, Vascular Interventional ARZ LOS, Vascular Interventional FLA LOS N/A X-Ray Angiography Impressions 08/22/2023 9:05 AM CDT Placement of a right IJ vein single-lumen 4 Nicaraguan tunneled PowerPICC ready for immediate use. NR [...] advanced into the IVC and a 4 Nicaraguan dilator advanced over the wire and attached to a one-way stopcock. A suitable exit site in the right anterior chest was anesthetized and a small incision made. A 4 Nicaraguan single-lumen PowerPICC was then tunneled from the [...] Wireadvanced into the IVC and a 4 Nicaraguan dilator advanced over the wire andattached to a one-way stopcock. A suitable exit site in the right anteriorchest was anesthetized and a small incision made. A 4 Nicaraguan single-lumen PowerPICC was then tunneled fromthe skin [...] of a right IJ vein single-lumen 4 Nicaraguan tunneled PowerPICCready for immediate use. NR Kimi [...] M.D. LAB BLOOD ADD-ON Performing Organization Address [facility] Co de Phone Number [facility] [address] [place] [address], [place] DTL [facility] [address] [place] [address] * Place peripherally inserted central catheter (PICC) [...] M.D. PROCEDURE/MINOR SURGICAL ORDERABLES Performing Organization Address [facility] Co de Phone Number MMODAL NA * [...] same-day CT. Rightureteral stent. Lizette Harvey M.D. [facility] PROCEDURES * CT Abdomen Pelvis [...] and management can be found on the [employer] site. Link [email or web address] Findings discussed with ??Tayler Greenwood, ?? ([id number]) on 08/17/2023 7:11 PM. Procedure Note Jj [...] management can be found on theAskMayoExpert site. [email or web address] Findings discussed with Tayler Greenwood MD ([id number]) on 08/17/2023 7:11 PM. IMPRESSION: 1. Aging, [...] BLOOD NON ADD-O N Performing Organization Address City/[facility]/ZIP Co de Phone Number [facility] [address] [place] [address] * Patient Status (08/15/2023 11:56 AM CDT) Only the most recent of2 resultswithin the time period is included. Temperature 36.2 37.0 deg C 08/15/2023 12:04 PM CDT STMA Blood 08/15/2023 11:5 6 AM CDT 08/15/2023 12:03 PM CDT Rae Gonzalez APRN, GAVIN, DNAP LAB BLOO D NON ADD-ON [facility] [address] [place] [address], [facility] [address] [place] [address] * Sodium, B (08/15/2023 11:56 AM CDT) Only the most recent of2 resultswithin the time period is included. Sodium, B 135 135 - 145 mmol/L 08/15/2023 12:06 PM CDT STMA Blood (Blood, Arterial Line) 08/15/2023 11:56 AM CDT 08/15/2023 12:03 PM CDT Hayde Song M.D. LAB BLOOD NON ADD-O N [facility] [address] [place] [address], [facility] [address] [place] [address] * (ABNORMAL) Blood Gas with Coox, Arterial [...] M.D. LAB BLOOD NON ADD-O N [facility] [address] [place] [address] * Potassium, Blood (08/15/2023 11:56 AM CDT) Only the most recent of2 resultswithin the time period is included. Potassium, B 4.3 3.6 - 5.2 mmol/L 08/15/2023 12:07 PM CDT STMA Blood (Blood, Arterial Line) 08/15/2023 11:56 AM CDT 08/15/2023 12:03 PM CDT Hayde Song M.D. LAB BLOOD NON ADD-O N Performing Organization Address City/[facility]/ZIP Co de Phone Number [facility] [address] [place] [address] * (ABNORMAL) Glucose, Whole Blood (08/15/2023 11:56 AM CDT) Only the most recent of2 resultswithin the time period is included. Glucose 144(H) 70 - 140 mg/dL 08/15/2023 12:06 PM CDT STMA Blood (Blood, Arterial Line) 08/15/2023 11:56 AM CDT 08/15/2023 12:03 PM CDT Narrative Authorizing Provider Result Abdifatah Song M.D. LAB BLOOD ADD-ON [facility] [address] [place] [address] * (ABNORMAL) Calcium, Ionized (08/15/2023 11:56 AM CDT) Only the most recent of2 resultswithin the time period is included. Calcium, Ionized, B 4.53(L) 4.65 - 5.30 mg/dL 08/15/2023 12:07 PM CDT STMA Blood (Blood, Arterial Line) 08/15/2023 11:56 AM CDT 08/15/2023 12:03 PM CDT Hayde Song M.D. LAB BLOOD NON ADD-O N [address] [address], [facility] [address] [place] [address] * GA ARTL CATH/CNULA MONITOR PERC, GA US GUIDE VASC ACCESS, LDA ANE ARTERIAL [...] ETT location: oral VL device: glide scope Hepler scope blade size: 4 Tube size: 7.5 [...] Comment:Specimen Source Site : Blood Narrative [facility] - 08/20/2023 6:02 AM CDT Received Bactec aerobic and Bactec anaerobic bottles Carlos Alberto Henson M.D. LAB MICROBIOLOGY - G ENERAL ORDERABLES Performing Organization Address [facility]/ZIP Co de Phone Number [facility] [address] [place], [place] [id number] [place] [address] [facility] [address] [place] [address] * (ABNORMAL) Hepatic Function Panel (08/13/2023 5:27 [...] M.D. LAB BLOOD ADD-ON Performing Organization Address City/[facility]/ZIP Co de Phone Number [facility] [address] [place], [place] [address] DTL [facility] [address] [place] [address] * Interpretation of Outside CT Abdomen and [...] System IMG CT PROCEDURES Performing Organization Address City/State/[facility] Co de Phone Number [facility] NA from Last 3 Months Advance Directives For more information, please contact: [phone] * Full Code (Latest Code Status on File) Date Activated Date Inactivated Comments 08/30/2023 10:40 PM 09/05/2023 6:15 PM Question Answer Comments Full Code: Not Discussed Due to: Patient not available * Full Code Date Activated Date Inactivated Comments 08/13/2023 4:30 PM 08/26/2023 6:58 PM Question Answer Comments Full Code: Discussed Care Teams Bearing Machine Operator Relationship Specialty Start Date End Date Elsewhere, Pcp PCP - General Internal Medicine 08/13/23
--- OUTSIDE RECORDS SUMMARY | 2023-09-26 14:35 | XMS_ITS | Clinical Summary ---
Author Organization [facility] Address [address] [place] [address] Care Team Providers Care Nascar Driver Name Role Phone Elsewhere, Pcp Primary Care Provider Unavailabl e Source Comments Patient records contain information from all sites at [facility]. For routine questions regarding patient records, call [phone] during business hours, M-F 8:00 AM - 5:00 PM Central Time. Record requests for emergency care only can be directed to [phone] at any time.[facility] Allergies No known active allergies Medications Medication [...] minutes, take the second dose and call [phone] Active tamsulosin (FLOMAX) 0.4 mg 24 [...] 09/21/2023 Clinical Communication Department of Urology in [place], [place] [address] [place] [phone] Paula Hernandez M.D. 09/16/2023 Clinical Communication Department of Urology in [place], [place] [address] [place] [phone] Provider, Unknown follow up questions 09/16/2023 Orders Only Department of Urology in [place], [place] [address] [place] [phone] Paula Hernandez M.D. Hematuria Gross (Primary Dx) 09/15/2023 Clinical Communication [facility] [address] [place] [phone] Yasmine Loco 09/09/2023 12:10 PM CDT Ancillary Procedure Department of Nursing 09/09/2023 7:24 AM CDT - 09/15/2023 5:28 PM CDT Hospital Encounter [facility], [facility], Sixth Floor [address] [place] [phone] Gerri Merrill M.D., Ph.D. Sumit Holbrook M.D. Hematuria (Primary Dx) Discharge Disposition: Home or Self Care 09/09/2023 Documentation Department of Urology in [place], [place] [address] [place] [phone] Ko Victoria M.D. 09/06/2023 Orders Only Section of Hyperbaric Medicine in [place], [place] [address] [place] [phone] Kira Ferraro APRN, C.N.P., M.S.N. 09/06/2023 Clinical Communication [facility] [address] [place] [phone] Yasmine Loco 09/01/2023 10:05 AM CDT Ancillary Procedure Department of Nursing 08/31/2023 12:36 PM CDT - 08/31/2023 2:31 PM CDT Surgery [facility] [address] [place] [phone] Mayur Alvarez M.D. CYSTOSCOPY EVACUATION CLOTS 08/31/2023 12:34 PM CDT Anesthesia Event [facility] [address] [place] [phone] Joe Stoll M.D. Benjamin Williamson APRN, GAVIN 08/31/2023 12:25 PM CDT Ancillary Procedure Department of General Surgery 08/30/2023 7:35 PM CDT - 09/05/2023 4:09 PM CDT Hospital Encounter [facility], [facility], [facility], First Floor [address] [place] [phone] Kirstin Hughes M.D. Thompson, R. Houston, M.D. Hematuria (Primary Dx); Tachycardia; Hematuria Gross Discharge Disposition: Home-Health Care [facility] 08/30/2023 Documentation Department of Urology in [place], [place] [address] [place] [phone] Corin Ring M.D. 08/30/2023 Intake [facility] 08/26/2023 Orders Only Department of Urology in [place], [place] [address] [place] [phone] Paula Hernandez M.D. 08/23/2023 12:45 AM CDT Ancillary Procedure Department of Nursing 08/15/2023 8:30 AM CDT Anesthesia Event [facility] [address] [place] [phone] Hayde Song M.D. 08/15/2023 7:55 AM CDT - 08/15/2023 11:23 AM CDT Surgery [facility] [address] [place] [phone] Boubacar Brock M.D. Palliative EXPLORATORY LAPAROTOMY, CYSTOTOMY CLOSURE, RIGHT URETERAL STENT EXCHANGE 08/13/2023 4:35 PM CDT Ancillary Procedure Department of Radiology in [place], [place] [address] [place] [phone] Carlos Alberto Henson M.D. 08/13/2023 3:42 PM CDT - 08/26/2023 4:11 PM CDT Hospital Encounter [facility], [facility], [facility], Sixth Floor [address] [place] [phone] Darnell Garcia M.D. Chow, George K, M.D. Decline Functional Status [R53.81] (Primary Dx); Hematuria [R31.9] Discharge Disposition: Home or Self Care 08/13/2023 Intake [facility] from Last 3 Months Social History Tobacco Use Types Packs/Day Years Used Date Smoking Tobacco: Never Smokeless Tobacco: Never Tobacco Cessation:Counseling Given: Not Answered [facility] Utilities Answer Date Recorded In the past 12 months has [facility] [employer], gas, oil, or water [place] threatened to shut off services in your [...] situation today? I have a [facility] place to live 09/09/2023 Sex and [...] CDT Procedure visit Department of Urology in [place], [place] [address] [place] [address] Paula Hernandez M.D. [address] [place] [phone] Health Maintenance Due Date Last Done Comments Zoster Vaccines (1 of 2) 1989 Depression Screening (Annual PHQ-2) 04/11/2023 Fall Risk Screen (Annual) 04/11/2023 DTaP,Tdap,and Td Vaccines (2 - Td or Tdap) 09/07/2026 09/07/2016 Influenza Vaccine Completed 03/08/2023, 01/28/2022 COVID-19 Vaccine Completed 07/21/2023, , 09/13/2022, Additional history exists Pneumococcal vaccine (65+ years) Completed 07/21/19 24 Medical Devices Implanted Type Area Manager Community Outreach Device Identifier Shelf Expiration Date Model / Serial / Lot Clp Hrzn Ti 6 Clp Lg Orng - [id number] Implanted:Qt y: 1 on 08/15/2023 by Boubacar Brock M.D. at [facility] Hardware e.g. pins/screws /rods Abdomen [employer] [id number] 02/29/2028 [id number] / / [id number] Clp Hrzn Ti 6 Clp Lg Orng - [id number] Implanted:Qt y: 1 on 08/15/2023 by Boubacar Brock M.D. at [facility] Hardware e.g. pins/screws /rods Abdomen [employer] [id number] 02/29/2028 [id number] / / [id number] 4 Clp Hrzn Ti 6 Clp Md Monty - [id number] Implanted:Qt y: 1 on 08/15/2023 by Boubacar Brock M.D. at [facility] Hardware e.g. pins/screws /rods Abdomen [employer] [id number] 03/13/2028 [id number] / / [id number] Clp Hrzn Ti 6 Clp Md Monty - [id number] Implanted:Qt y: 1 on 08/15/2023 by Boubacar Brock M.D. at [facility] Hardware e.g. pins/screws /rods Abdom[employer] [id number] 03/21/2028 [id number] / / [id number] Stnt Uret Inl 6fx24 - [id number] Implanted:Qt y: 1 on 08/15/2023 by Jakob De Paz M.D. at [facility] Ureteral Stent N/A: Ureter [employer] [id number] 11/18/2027 [id number] / / [id number] Procedures Procedure Name Priority Date/Time Associated Diagnosis [...] is included. Pathologist [facility] Hemoglobin 9.8(L) 13.2 - 16.6 g/dL 09/15/2023 [...] Organization Address City/[facility]/ZIP Co de Phone Number [address] [address], [facility] [address] * Heparin Anti-Xa Assay (09/14/2023 3:19 AM [...] Sumit Holbrook M.D. LAB BLOOD NON ADD-ON [facility] [address] [place] [address], [facility] DTL [facility] [address] [place] [address] * IR Nephrostomy Tube Placement Left (09/13/2023 2:20 PM CDT) Anatomical Region Laterality Modality Genito Urinary, Vascular Int erventional RST LOS, Vascular Interventional ARZ LOS, Vascular Interventional FLA LOS Left X-Ray Angiography Impressions 09/13/2023 2:33 PM CDT Left 10 Venezuelan percutaneous nephrostomy tube placement. EP Narrative 09/13/2023 [...] tract was further dilated and a 10 Venezuelan nephrostomy tube was placed with loop formed [...] sedation timewas: 9 minutes. IMPRESSION: Left 10 Venezuelan percutaneous nephrostomy tube placement. EP Latisha Whitehead M.D. G IR PROCEDURE S * Bacterial Culture, Aerobic + Susceptibility (09/13/2023 2:17 PM CDT) Pathologist [facility] Bacterial Culture, Aerobic + Susc No growth after 5 days of incubation. 09/18/2023 12:35 PM CDT DTL Fluid (Kidney, Left) 09/13/2023 2:17 PM CDT 09/13/2023 3:56 PM CDT Comment:Specimen Source Site : Fluid Latisha Whitehead M.D. LAB MICROBIOLOGY - GENERAL ORDERABLES Performing Organization Address [facility]/ZIP Co de Phone Number [facility] [address] [place] [address] * Gram Stain (09/13/2023 2:17 PM CDT) Pathologist [facility] Gram Stain No organisms seen. White blood cells, Rare 09/13/2023 9:02 PM CDT DT Fluid (Kidney, Left) 09/13/2023 2:17 PM CDT 09/13/2023 3:56 PM CDT Comment:Specimen Source Site : Fluid Latisha Whitehead M.D. LAB MICROBIOLOGY - GENERAL ORDERABLES Performing Organization Address [facility] Co de Phone Number [facility] [address] [place] [address], [place] [address] * APTT (Activated Partial Thromboplastin Time) (09/13/2023 5:56 AM CDT) Only the most recent of18 resultswithin the time period is included. Pathologist [facility] Activated Partial Thrombopl Time, P 35 25 - 37 sec 09/13/2023 7:14 AM CDT DTL Blood (Blood, Venous) 09/13/2023 5:56 AM CDT 09/13/2023 6:53 AM CDT Sumit Holbrook M.D. LAB BLOOD ADD-ON Performing Organization Address City/[facility]/ZIP Co de Phone Number [facility] [address] [place] [address], [facility] DTL [facility] [address] [place] [address] * (ABNORMAL) Basic Metabolic Panel (09/13/2023 5:56 AM CDT) Only the most recent of14 resultswithin the time period is included. [facility] Potassium, S 3.7 3.6 - 5.2 [...] BLOOD ADD-ON [facility] [address] [place] [address], [facility] DTL [facility] [address] [place] [address] * NM Kidney DMSA (09/12/2023 12:21 PM [...] RAD IMAGI NG PROCEDURES Performing Organization Address City/[facility]/ZIP Co de Phone Number [facility] NA * Osmolality, Urine (09/09/2023 11:28 AM CDT) Only the most recent of2 resultswithin the time period is included. Osmolality, U 380 150 - 1150 mOsm/kg 09/09/2023 12:19 PM CDT DTL Urine 09/09/2023 11:2 8 AM CDT 09/09/2023 11:58 AM CDT Jeffery Church M.D. LAB URINE ORDERA BLEBryon Performing Organization Address [facility] Co de Phone Number [facility] [address] [place] [address], [facility] [address] [place] [address] * (ABNORMAL) Dipstick, Urine (09/09/2023 11:28 AM [...] Organization Address City/[facility]/ZIP Co de Phone Number [facility] [address] [place] [address], [facility] [address] [place] [address] * pH, Random, Urine (09/09/2023 11:28 AM CDT) Only the most recent of2 resultswithin the time period is included. pH, Random, U 6.3 4.5 - 8.0 09/09/2023 12:19 PM CDT DTL Urine 09/09/2023 11:2 8 AM CDT 09/09/2023 11:58 AM CDT Jeffery Church M.D. LAB URINE ORDERA BLEBryon Performing Organization Address City/[facility] Co de Phone Number [facility] [address] [place], [place] [address] [place] [address] [address] [place] [address] * (ABNORMAL) Microscopic Manual (09/09/2023 11:28 AM [...] Organization Address City/[facility]/ZIP Co de Phone Number [facility] [address] [place] [address], [facility] [address] [place] [address] * (ABNORMAL) Bacterial Culture, Aerobic + Susceptibility, [...] - GENERAL ORDERABLES Performing Organization Address [facility] Co de Phone Number [facility] [address] [place] [address], [address] [address] * (ABNORMAL) Gram Stain, Urine (09/09/2023 11:28 AM CDT) Source Urine, Urine, Straight Catheter 09/09/2023 11:58 AM CDT DTL Gram Stain, U Positive(A) Negative 09/09/2023 12:16 PM CDT DTL Comment: Few Gram-negative bacilli ? Yeast Urine 09/09/2023 11:2 8 AM CDT 09/09/2023 11:58 AM CDT Jeffery Church M.D. LAB URINE ORDERA BLES Performing Organization Address [facility] de Phone Number [facility] [address] [place], [place] [address] [place] [address] * (ABNORMAL) Urinalysis, with Microscopic: Urine, Straight [...] 09/09/2023 1:02 PM CDT DTL Predicted Range 2480-25942 mg/24 h 09/09/2023 1:02 PM CDT DTL Comment Micro done on <2.5 mL 09/09/2023 12:27 PM CDT DTL Urine (Urine, Straight Catheter) 09/09/2023 11:28 AM CDT 09/09/2023 11:58 AM CDT Jeffery Church M.D. LAB URINE ORDERA BLES [facility] [address] [place] [address], [facility] [address] [place] [address] * US Kidneys Bilateral with Bladder (09/09/2023 [...] - 12.5 sec 09/09/2023 8:14 AM CDT [facility] INR 1.1 0.9 - 1.1 09/09/2023 8:14 AM CDT [facility] Comment: ----ADDITIONAL INFORMATION---- Standard intensity warfarin therapeutic range: 2.0 to 3.0 ?? High intensity warfarin therapeutic range: 2.5 to 3.5 Blood (Blood, Venous) 09/09/2023 8:04 AM CDT 09/09/2023 8:08 AM CDT Jeffery Church M.D. LAB BLOOD ADD-ON [facility] [address] [place] [address], [facility] [address] [place] [address] * (ABNORMAL) CBC with Differential, Blood (09/09/2023 [...] Jeffery Church M.D. LAB BLOOD ADD-ON [facility] [address] [place] [address], [facility] [address] [place] [address] [facility] [address] [place] [address] * Type and Screen (with Reflex Antibody ID) (09/09/2023 8:03 AM CDT) Only the most recent of6 resultswithin the time period is included. Pathologist [facility] ABORh O Pos Not applicable 09/09/2023 8:47 AM CDT STRM Antibody Screen Negative Negative 09/09/2023 9:02 AM CDT STRM Type & Screen Expiration 09/12/2023 23:59 09/09/2023 8:47 AM CDT STRM Testing Location [place] DEFAULT 09/09/2023 8:10 AM CDT STRM Blood (Blood, Venous) 09/09/2023 8:03 AM CDT 09/09/2023 8:10 AM CDT Jeffery Church M.D. LAB BLOOD BANK T EST ORDERABLES [facility] [address] [place] [address], [facility] [address] [place] [address] * Potassium (09/05/2023 4:56 AM CDT) Only the most recent of2 resultswithin the time period is included. Pathologist [facility] Potassium, S 3.6 3.6 - 5.2 mmol/L 09/05/2023 5:49 AM CDT DTL Blood (Blood, Venous) 09/05/2023 4:56 AM CDT 09/05/2023 5:22 AM CDT Roxy Romero M.D. LAB BLOOD ADD-ON [facility] [address] [place] [address], [facility] DTL [facility] [address] [place] [address] * FL Fluoro Less Than 1 Hour [...] FLUOROSCOPY PROCEDURES 152 HOS LOS RST * LDA ANE [...] M.D., M.S. LAB BLOO D ADD-ON [facility] [address] [facility] [address] [place] [address] * Lactate (08/30/2023 9:50 PM CDT) Pathologist [facility] Lactate, P 1.8 0.5 - 2.2 mmol/L 08/30/2023 10:09 PM CDT [facility] Blood (Blood, Venous) 08/30/2023 9:50 PM CDT 08/30/2023 9:55 PM CDT Shannan Correa D.O., M.H.A. LAB BLOOD NON ADD-ON [facility] [address] [facility] [address] [place] [address] * DX Chest AP or PA and [...] included. Ventricular Rate ECG/Min 145 BPM MUSE RI Interval 136 ms MUSE QRSD Interval 64 ms MUSE QT Interval 260 ms MUSE QTC Interval 403 ms MUSE P [place] 44 degrees MUSE R [place] 9 degrees MUSE T Wave [place] -76 degrees MUSE 08/30/2023 7:44 PM CDT [...] - 4.5 mg/dL 08/26/2023 4:04 AM CDT DT Blood (Blood, Venous) 08/26/2023 3:20 AM CDT 08/26/2023 3:50 AM CDT Boubacar Brock M.D. LAB BLOOD ADD-ON [facility] [address] [place] [address] * Magnesium (08/26/2023 3:20 AM CDT) Only the most recent of6 resultswithin the time period is included. Magnesium, S 2.1 1.7 - 2.3 mg/dL 08/26/2023 4:04 AM CDT DT Blood (Blood, Venous) 08/26/2023 3:20 AM CDT 08/26/2023 3:50 AM CDT Boubacar Brock M.D. LAB BLOOD ADD-ON Performing Organization Address City/[facility]/ZIP Co de Phone Number [facility] [address] [place] [address] * (ABNORMAL) Phosphorus Inorganic (08/23/2023 9:58 PM CDT) Only the most recent of2 resultswithin the time period is included. Phosphorus (Inorganic), S 2.1(L) 2.5 - 4.5 mg/dL 08/23/2023 10:45 PM CDT DTL Blood (Blood, Venous) 08/23/2023 9:58 PM CDT 08/23/2023 10:30 PM CDT Paula Hernandez M.D. LAB BLOOD ADD-ON Performing Organization Address City/[facility]/ZIP Co de Phone Number [facility] [address] [facility] [place] [address] [place] [address] * Triglycerides (08/23/2023 3:42 AM CDT) Only the most recent of2 resultswithin the time period is included. Pathologist [facility] Triglycerides 106 mg/dL 08/23/2023 4:50 AM CDT DTL Comment: ----REFERENCE VALUE---- Normal: <150 mg/dL Borderline High: 150-199 mg/dL High: 200-499 mg/dL Very High: > or =500 mg/dL Fasting (8 HR or more) Yes 08/23/2023 4:19 AM CDT DTL Blood (Blood, Venous) 08/23/2023 3:42 AM CDT 08/23/2023 4:19 AM CDT Boubacar Brock M.D. LAB BLOOD ADD-ON [facility] [address] [place] [address], [facility] [address] [place] [address] * Glucose, POCT (08/22/2023 11:38 PM CDT) Pathologist [facility] Glucose, POCT, B 117 70 - 140 mg/dL 08/23/2023 1:06 AM CDT PCLX Site Capillary 08/23/2023 1:06 AM CDT PCLX Last Intake NPO 08/23/2023 1:06 AM CDT PCLX Blood 08/22/2023 11:3 8 PM CDT 08/23/2023 1:06 AM CDT Unknown Provider LAB POCT ORDERABLES- MANUAL POC [facility] [address] [place] [address], [facility] PCLX [facility] POC [address] [place] [address] * CT Abdomen Pelvis without IV Contrast [...] transport rates. All other fluids refer to www.[employer]s.com for further interpretive information. This test has been modified from the tradeshow worker's instructions. Its performance characteristics were determined by [facility] in a manner consistent with CLIA requirements. This test has not been cleared or approved by the U.S. Food and Drug Administration. Fluid Type, Creatinine Fluid, Abdomen 08/22/2023 3:52 PM CDT DTL Fluid (Abdomen) 08/22/2023 3 :30 PM CDT 08/22/2023 6:36 PM CDT Corin Ring M.D. LAB BODY FLUIDS AND STOOLS ORDERABLES [facility] [address] [place] [address], [facility] [address] [place] [address] * IR PICC Line Placement (08/22/2023 8:35 AM CDT) Anatomical Region Laterality Modality Chest, Pelvis, Abdomen, Vasc ular Interventional RST LOS, Vascular Interventional ARZ LOS, Vascular Interventional FLA LOS N/A X-Ray Angiography Impressions 08/22/2023 9:05 AM CDT Placement of a right IJ vein single-lumen 4 Venezuelan tunneled PowerPICC ready for immediate use. NR [...] advanced into the IVC and a 4 Venezuelan dilator advanced over the wire and attached to a one-way stopcock. A suitable exit site in the right anterior chest was anesthetized and a small incision made. A 4 Venezuelan single-lumen PowerPICC was then tunneled from the [...] Wireadvanced into the IVC and a 4 Venezuelan dilator advanced over the wire andattached to a one-way stopcock. A suitable exit site in the right anteriorchest was anesthetized and a small incision made. A 4 Venezuelan single-lumen PowerPICC was then tunneled fromthe skin [...] of a right IJ vein single-lumen 4 Venezuelan tunneled PowerPICCready for immediate use. NR Kimi [...] CDT Latisha Whitehead M.D. LAB BLOOD ADD-ON [address] [address], [facility] [address] [address] * Place peripherally inserted central catheter (PICC) [...] and management can be found on the [employer] site. Link https://Agilysyoexpert.[facility].org/topic/clinical-answers/[email or web address]/[place]-204 [address] Findings discussed with ??Tayler Greenwood, ?? ([id number]) on 08/17/2023 7:11 PM. Procedure Note Jj [...] be found on theAskMayoExpert site. [email or web address]://[email or web address]/topic/clinical-answers/[email or web address]/[place] -2049 1725 Findings discussed with Tayler Greenwood MD ([id number]) on 08/17/2023 7:11 PM. IMPRESSION: 1. Aging, [...] tip andsidehole in stomach. Remainder negative. Boubacar Brcok M.D. IMG DIAGNOSTIC IMAGI NG PROCEDURES * Lactate, B - Intra-op (08/15/2023 11:56 AM CDT) Only the most recent of2 resultswithin the time period is included. Lactate, B 1.1 0.5 - 2.2 mmol/L 08/15/2023 12:06 PM CDT [facility] Blood (Blood, Venous) 08/15/2023 11:56 AM CDT 08/15/2023 12:03 PM CDT Hayde Song M.D. LAB BLOOD NON ADD-O N [facility] [address] [place] [address], [facility] [address] [place] [address] * Patient Status (08/15/2023 11:56 AM CDT) Only the most recent of2 resultswithin the time period is included. Temperature 36.2 37.0 deg C 08/15/2023 12:04 PM CDT [facility] Blood 08/15/2023 11:5 6 AM CDT 08/15/2023 12:03 PM CDT Rae Gonzalez APRN, GAVIN, DNAP LAB BLOO D NON ADD-ON Performing Organization Address City/[facility]/ZIP Co de Phone Number [facility] [address] [place] [address] * Sodium, B (08/15/2023 11:56 AM CDT) Only the most recent of2 resultswithin the time period is included. Sodium, B 135 135 - 145 mmol/L 08/15/2023 12:06 PM CDT [facility] Blood (Blood, Arterial Line) 08/15/2023 11:56 AM CDT 08/15/2023 12:03 PM CDT Hayde Song M.D. LAB BLOOD NON ADD-O N Performing Organization Address City/[facility]/ZIP Co de Phone Number [facility] [address] [place] [address] * (ABNORMAL) Blood Gas with Coox, Arterial [...] Organization Address City/[facility]/[place] [address] * Potassium, Blood (08/15/2023 11:56 AM CDT) Only the most recent of2 resultswithin the time period is included. Pathologist [facility] Potassium, B 4.3 3.6 - 5.2 mmol/L 08/15/2023 12:07 PM CDT [facility] Blood (Blood, Arterial Line) 08/15/2023 11:56 AM CDT 08/15/2023 12:03 PM CDT Hayde Song M.D. LAB BLOOD NON ADD-O N Performing Organization Address City/[facility]/ZIP Co de Phone Number [facility] [address] [place] [address], [place] [address] * (ABNORMAL) Glucose, Whole Blood (08/15/2023 11:56 AM CDT) Only the most recent of2 resultswithin the time period is included. Glucose 144(H) 70 - 140 mg/dL 08/15/2023 12:06 PM CDT [facility] Blood (Blood, Arterial Line) 08/15/2023 11:56 AM CDT 08/15/2023 12:03 PM CDT Hayde Song M.D. LAB BLOOD ADD-ON Performing Organization Address City/[facility]/ZIP Co de Phone Number [facility] [address] [place] [address], [facility] [address] [place] [address] * (ABNORMAL) Calcium, Ionized (08/15/2023 11:56 AM CDT) Only the most recent of2 resultswithin the time period is included. Pathologist [facility] Calcium, Ionized, B 4.53(L) 4.65 - 5.30 mg/dL 08/15/2023 12:07 PM CDT [facility] Blood (Blood, Arterial Line) 08/15/2023 11:56 AM CDT 08/15/2023 12:03 PM CDT Hayde Song M.D. LAB BLOOD NON ADD-O N Performing Organization Address [facility] Co de Phone Number [facility] [address] [place] [address], [facility] [address] [place] [address] * RI ARTL CATH/CNULA MONITOR PERC, RI US GUIDE VASC ACCESS, LDA ANE ARTERIAL LINE INSERTION, MC ANE INVASIVE CATH WITH ULTRASOUND (08/15/2023 9:51 AM CDT) Narrative Rae Gonzalez APRN, CRNA, DNAP - 08/15/2023 9:51 AM CDT Rae Gnozalez APRN, CRNA DNAP ? 08/15/2023 ??9:52 AM Invasive Catheter [...] ETT location: oral VL device: glide scope [place] scope blade size: 4 Tube size: 7.5 [...] Carlos Alberto Henson M.D. LAB MICROBIOLOGY - [facility] ORDERABLES [facility] [address] [place] [address], [facility] [address] [place] [address] * (ABNORMAL) Hepatic Function Panel (08/13/2023 5:27 [...] Carlos Alberto Henson M.D. LAB BLOOD ADD-ON [facility] [address] [place] [address], [place] [facility] [address] [place] [address] * Interpretation of Outside CT Abdomen and [...] Advance Directives For more information, please contact: [phone] * Full Code (Latest Code Status on File) Date Activated Date Inactivated Comments 08/30/2023 10:40 PM 09/05/2023 6:15 PM Question Answer Comments Full Code: Not Discussed Due to: Patient not available * Full Code Date Activated Date Inactivated Comments 08/13/2023 4:30 PM 08/26/2023 6:58 PM Question Answer Comments Full Code: Discussed Care Teams Nascar Driver Relationship Specialty Start Date End Date Elsewhere, Pcp PCP - General Internal Medicine 08/13/23
--- OUTSIDE RECORDS SUMMARY | 2023-09-26 14:35 | XMS_ITS ---
Author Organization [facility] Address [address] [place] [address] Care Team Providers Care Wooden Furniture Polisher Name Role Phone Elsewhere, Pcp Primary Care [...] On Elapsed Days Session Dose Total Dose [id number] 04/28/2020 32 300 cGy 6,000 cGy Lifetime Dose Tracking * Chemical Lifetime Dose Automatic Entry Manual Entr y Radiation 20.4 mGy 20.4 mGy 0 mGy Fluoro Time 2.005 minutes 2.005 minutes 0 minutes DAP (uGy-m2) 479.6 uGy-m2 479.6 uGy-m2 0 uGy-m2
--- OUTSIDE RECORDS SUMMARY | 2023-09-26 14:36 | XMS_ITS | Encounter Summary ---
Author Organization [facility] Address [address] [place] [address] Care Team Providers Care Cage Supervisor Name Role Phone Elsewhere, Pcp Primary Care Provider Unavailabl e Reason for Referral * Outpatient (Routine) - Authorized Specialty Diagnoses / Procedures Referred By Leyla t Referred To Contact Diagnoses Hematuria Gross Procedures DX Chest AP or PA and Lateral 2 Views Paula Hernandez M.D. [address] [place] [address] [facility] Referral ID Status Reason Start Date Expiration Date V isits Requested Visits Authorized [id number] Authorized 09/16/2023 09/15/2024 1 1 Encounter Details Date Type Department Care Team (Late st Contact Info) Description 09/16/2023 Orders Only Department of Urology in [place], [place] [address] [place] [address] Paula Hernandez M.D. [address] [place] [phone] Hematuria Gross (Primary Dx) Social History Tobacco Use Types Packs/Day Years Used Date Smoking Tobacco: Never Smokeless Tobacco: Never [facility] Utilities Answer Date Recorded In the [...] living situation today? I have a [facility] place to live 09/09/2023 Sex and Gender Information Value Date Recorded Sex Assigned at Not on file Gender Identity Not on file Sexual Orientation Not on file documented as of this encounter Plan of Treatment Upcoming Encounters Date Type Department Care Team (Late st Contact Info) Description 10/14/2023 1:00 PM CDT Procedure visit Department of Urology in [place], [place] [address] [place] [address] Paula Hernandez M.D. [address] [place] [address] Scheduled Orders Name Type Priority Associated Diagnoses [...] documented as of this encounter Care Teams Cage Supervisor Relationship Specialty Start Date End Date Elsewhere, Pcp PCP - General Internal Medicine 08/13/23 documented as of this encounter
--- OUTSIDE RECORDS SUMMARY | 2023-09-26 14:36 | XMS_ITS | Encounter Summary ---
Author Organization [facility] Address [address] [place] [address] Care Team Providers Care Metal Coater Name Role Phone Elsewhere, Pcp Primary Care Provider Unavailabl e Encounter Details Date Type Department Care Team (Late st Contact Info) Description 09/21/2023 Clinical Communication Department of Urology in [place], [place] [address] [place] [address] Paula Hernandez M.D. [address] [place] [address] Social History Tobacco Use Types Packs/Day Years Used Date Smoking Tobacco: Never Smokeless Tobacco: Never [facility] Utilities Answer Date Recorded In the past 12 months has [facility] [employer], gas, oil, or water [employer] threatened to shut off services in your [...] 2:37 PM CDT I called the patient's [place] physician who he saw yesterday, 09/19 in [...] CDT Procedure visit Department of Urology in [place], [place] [address] [place] [address] Paula Hernandez M.D. [address] [place] [address] documented as of this encounter Visit Diagnoses Not on filedocumented in this encounter Care Teams Metal Coater Relationship Specialty Start Date End Date Elsewhere, Pcp PCP - General Internal Medicine 08/13/23 documented as of this encounter
--- OUTSIDE RECORDS SUMMARY | 2023-09-26 14:36 | XMS_ITS | Encounter Summary ---
Author Organization [facility] Address [address] [place] [address] Care Team Providers Care Splicer Helper Name Role Phone Elsewhere, Pcp Primary Care Provider Unavailabl e Encounter Details Date Type Department Care Team (Late st Contact Info) Description 09/09/2023 12:10 PM CDT Ancillary Procedure Department of Nursing Social History Tobacco Use Types Packs/Day Years Used Date Smoking Tobacco: Never Smokeless Tobacco: Never [facility] Utilities Answer Date Recorded In the past 12 months has [facility] [employer], gas, oil, or water [...] your living situation today? I have a [facility] place to live 09/09/2023 Sex and Gender Information Value Date Recorded Sex Assigned at Not on file Gender Identity Not on file Sexual Orientation Not on file documented as of this encounter Plan of Treatment Upcoming Encounters Date Type Department Care Team (Late st Contact Info) Description 10/14/2023 1:00 PM CDT Procedure visit Department of Urology in [place], [place] [address] [place] [address] Paula Hernandez M.D. [address] [place] [address] documented as of this encounter Procedures Procedure [...] on filedocumented in this encounter Care Teams Splicer Helper Relationship Specialty Start Date End Date Elsewhere, Pcp PCP - General Internal Medicine 08/13/23 documented as of this encounter
--- OUTSIDE RECORDS SUMMARY | 2023-09-26 14:36 | XMS_ITS | Encounter Summary ---
Author Organization [facility] Address [address] [place] [address] Care Team Providers Care Manager Ethics Name Role Phone Elsewhere, Pcp Primary Care Provider Unavailabl e Encounter Details Date Type Department Care Team (Late st Contact Info) Description 09/06/2023 Orders Only Section of Hyperbaric Medicine in [place], [place] [address] [place] [address] Kira Ferraro APRN, C.N.P., M.S.N. [address] [place] [address] Social History Tobacco Use Types Packs/Day Years Used Date Smoking Tobacco: Never Smokeless Tobacco: Never [facility] Utilities Answer Date Recorded In the past 12 months has [facility] [employer], gas, oil, or water [employer] threatened to shut off services in your [...] your living situation today? I have a [facility] place to live 09/09/2023 Sex and Gender Information Value Date Recorded Sex Assigned at Not on file Gender Identity Not on file Sexual Orientation Not on file documented as of this encounter Plan of Treatment Upcoming Encounters Date Type Department Care Team (Late st Contact Info) Description 10/14/2023 1:00 PM CDT Procedure visit Department of Urology in [place], [place] [address] [place] [address] Paula Hernandez M.D. 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
--- OUTSIDE RECORDS SUMMARY | 2023-09-26 14:36 | XMS_ITS | Encounter Summary ---
Author Organization [facility] Address [address] [place] [address] Care Team Providers Care Assembler Musical Instruments Name Role Phone Elsewhere, Pcp Primary Care Provider Unavailabl e Reason for Referral * Outpatient (Routine) - Authorized Specialty Diagnoses / Procedures Referred By Leyla rosenthal Referred To Contact Urology Diagnoses Hematuria Paula Benton M.D. [address] [place] [address] [facility] Referral ID Status Reason Start Date Expiration Date V isits Requested Visits Authorized [id number] Authorized 09/15/2023 03/16/2025 1 1 Encounter Details Date Type Department Care Team (Late st Contact Info) Description 09/15/2023 Clinical Communication [facility] [address] [place] [address] Yasmine Loco Social History Tobacco Use Types Packs/Day Years Used Date Smoking Tobacco: Never Smokeless Tobacco: Never [facility] Utilities Answer Date Recorded [...] your living situation today? I have a [facility] place to live 09/09/2023 Sex and Gender Information Value Date Recorded Sex Assigned at Not on file Gender Identity Not on file Sexual Orientation Not on file documented as of this encounter Plan of Treatment Upcoming Encounters Date Type Department Care Team (Late st Contact Info) Description 10/14/2023 1:00 PM CDT Procedure visit Department of Urology in [place], [place] [address] [place] [address] Paula Hernandez M.D. [address] [place] [address] Scheduled Referrals Name Type Priority Associated Diagnoses [...] documented as of this encounter Care Teams Assembler Musical Instruments Relationship Specialty Start Date End Date Elsewhere, Pcp PCP - General Internal Medicine 08/13/23 documented as of this encounter
--- OUTSIDE RECORDS SUMMARY | 2023-09-26 14:36 | XMS_ITS | Encounter Summary ---
Author Organization [facility] Address [address] [place] [address] Care Team Providers Care Sprayer Leather Name Role Phone Elsewhere, Pcp Primary Care Provider Unavailabl e Reason for Referral * Outpatient (Routine) - Authorized Specialty Diagnoses / Procedures Referred By Leyla t Referred To Contact Diagnoses Hematuria Gross Procedures DX Chest AP or PA and Lateral 2 Views Paula Hernandez M.D. [address] [place] [address] [facility] Referral ID Status Reason Start Date Expiration Date V isits Requested Visits Authorized [id number] Authorized 09/07/2023 09/06/2024 1 1 Encounter Details Date Type Department Care Team (Late st Contact Info) Description 09/06/2023 Clinical Communication [facility] [address] [place] [phone] Yasmine Loco Social History Tobacco Use Types [...] [facility] 09/09/2023 Sex and Gender Information Value Date Recorded Sex Assigned at Not on file Gender Identity Not on file Sexual Orientation Not on file documented as of this encounter Plan of Treatment Upcoming Encounters Date Type Department Care Team (Late st Contact Info) Description 10/14/2023 1:00 PM CDT Procedure visit Department of Urology in [place], [place] [address] [place] [address] Paula Hernandez M.D. 200 [place] [address] Scheduled Orders Name Type Priority Associated Diagnoses Orde r Schedule DX Chest AP or PA and Lateral 2 Views Imaging RAD - Routine (most inpatients and all outpatients) Hematuria Gross Expected: 09/08/2023, Expires: 09/05/2024 documented as of this encounter Visit Diagnoses Diagnosis Hematuria Gross- Primary documented in this encounter Care Teams Sprayer Leather Relationship Specialty Start Date End Date Elsewhere, Pcp PCP - General Internal Medicine 08/13/23 documented as of this encounter
--- OUTSIDE RECORDS SUMMARY | 2023-09-26 14:36 | XMS_ITS | Encounter Summary ---
Author Organization [facility] Address [address] [place] [address] Care Team Providers Care Threshing Machine Operator Name Role Phone Elsewhere, Pcp Primary Care Provider Unavailabl e Reason for Referral * Outpatient (Routine) - Authorized Specialty Diagnoses / Procedures Referred By Leyla rosenthal Referred To Contact Diagnoses Hematuria Procedures URO Urethral cath change (UCC) Paula Hernandez M.D. [address] [place] [address] [facility] Referral ID Status Reason Start Date Expiration Date V isits Requested Visits Authorized [id number] Authorized 09/15/2023 09/14/2024 1 1 * Outpatient (Routine) - Authorized Specialty Diagnoses / Procedures Referred By Leyla rosenthal Referred To Contact Radiology Diagnoses Hematuria Procedures IR Nephrostomy Tube Exchange Left Paula Hernandez M.D. [address] [place] [address] [facility] Referral ID Status Reason Start Date Expiration Date V isits Requested Visits Authorized [id number] Authorized 09/15/2023 09/14/2024 1 1 Reason for Visit * Reason Comments Blood in Urine Encounter Details Date Type Department Care Team (Latest Contact Info) Description 09/09/2023 7:24 AM CDT - 09/15/2023 5:28 PM CDT Hospital Encounter [facility], [facility], [facility], Sixth Floor [address] [place] [phone] Gerri Merrill M.D., Ph.D. [address] [place] [phone] Sumit Holbrook M.D. [address] [place] [address] Hematuria (Primary Dx) Discharge Disposition: Home or Self Care Social History Tobacco Use Types Packs/Day Years Used Date Smoking Tobacco: Never Smokeless Tobacco: Never [facility] rimidiities Answer Date Recorded In the past 12 months has e [employer] [place], gas, oil, or water [employer] threatened to shut off services in your [...] living situation today? I have a [facility] place to live 09/09/2023 Sex and Gender [...] CDT DISCHARGE SUMMARY BRIEF OVERVIEW Hospital: [facility] Discharge Provider: Sumit Holbrook M.D. Primary Team: [facility] Urology Surgery - Chief Helga [...] IP CONSULT TO UROLOGY IP CONSULT TO OPTOELECTRONIC TECHNICIAN WOUND CARE IP CONSULT TO HYPERBARIC MEDICINE IP CONSULT TO VASCULAR MEDICINE IP CONSULT TO DIETITIAN CONDITION AT DISCHARGE stable Discharge instructions were provided to the patient and caregiver(s). documented in this encounter Discharge Instructions * Discharge Instructions* Yasmine Loco - 09/09/2023 12:27 PM CDT You were discharged from the [facility] Urology Surgery - Chief A - Bob Service. Please identify this service name if you call with questions after hospitalization. * Attachments The following attachments cannot be sent through Care Everywhere. * Sulfamethoxazole/Trimethoprim (By mouth) (Uruguayan) documented in this encounter Medications at Time [...] reviewed. GI Function: Last BM Date: 09/11/23, Barbour Stool Chart: Type 5: Soft blobs with [...] 86.8 kg (09/09/2023) Current Weight: 84.5 kg Benton Body Weight (Calculated) : 75.3 kg BMI [...] or 5%. Estimated Needs: Total Calorie Needs: 6914-0810 calories/day Method to Estimate Energy Needs: kcal/kg [...] about patient's nutritional care please contact pager [phone] on weekdays 07:30-16:00 or [phone] on weekends/holidays ([facility]). * Clara Luu APRN, C.N.P., D.N.P. - [...] - 09/14/2365809/14/23 07 - 09/15/23 06 Shift [phone] 24 Hour Total 4920-1785 [phone] [phone] 24 Hour Total INTAKE Other 30 60 [...] please contact Vascular and Interventional Radiology DEBBI ([phone]). Anticoagulation: A percutaneous nephrostomy tube is considered [...] care. Please feel free to page the [facility]3] Inpatient Consult Service at [phone] or the on-call resident at [phone] after 5 PM and on weekends with [...] . Neph tube clear yellow urine. I/O ([id number]): 1.9 L, 1.1 L from the neph tube Labs: Hemoglobin 10.1 from 9.3 Cultures: 09/08 Enterobacter urine culture ASSESSMENT AND PLAN: Mr. eVga is a pleasant 83 y.o. male presenting [...] questions or concerns. Pager during business hours: [phone] Pager after hours: [phone] * Paula Hernandez M.D. - 09/13/2023 6:05 [...] in place draining clear yellow urine I/O ([id number]): Adequate urine output 2.7 L/248 1 L [...] questions or concerns. Pager during business hours: [phone] Pager after hours: [phone] * Raya Meza, DJonah, R.Ph., [facility] - 09/12/2023 7:44 AM CDT Images [...] follow for medicationuse optimization Pharm. YanciDJonah, R.Ph., [facility] Addendum: Heparin will be stopped on [...] in place draining clear yellow urine I/O ([id number]): CBI paused for obs Labs: Hb: Hemoglobin [...] Date/Time Bacterial Culture, Aerobic + Susceptibility, Urine [[id number]] (Abnormal) (Susceptibility) Collected: 09/09/23 1128 Lab Status: [...] Susceptible Bacterial Culture, Aerobic + Susceptibility, Urine [[id number]] Collected: 09/03/23 1050 Lab Status: Final result Specimen: Urine, Indwelling Catheter Updated: 09/04/23 8261 Urine Culture No growth after 1 day [...] questions or concerns. Pager during business hours: [phone] Pager after hours: [phone] * Js Yang M.D. - 09/11/2023 9:18 [...] [place] [phone] during business hours orat [phone] after hours. * Portillo Crespo Pharm.D., R.Ph., [...] at 0000 Mayur Collier PharmD, LUCERO, BCPS, [facility] Pager [phone] * Js Yang M.D. - 09/10/2023 9:50 [...] Service [place] [phone] during business hours orat [phone] after hours. * Quin Harrell Pharm.D., R.Ph., [...] RNarendra, C.W.C.N. - 09/09/2023 1:16 PM CDT [facility] Wound RN consulted to assess [...] Pre-Existing Unstageable Pressure Injury over Scar Tissue [facility] RN was consulted to assess pre-existing Unstageable [...] None Unable to Measure N *Wound Bed Open;[place];Yellow;Fibrin/Slough Tissue Exposed None Odor None *Exudate Amount Small Drainage Description Serous;Perez Janiya-wound Assessment Intact;Fragile;[place];Purple;Maceration;White Periwound Treatment Liquid skin protectant (SurePrep) *Primary Dressing Gelling fiber/Hydrofiber (Aquacel Ag) *Primary Dressing Frequency of Change Daily & PRN *Secondary Dressing Foam (Sacral Mepilex Border) *Secondary Dressing Frequency of Change Daily & PRN Lengthy Treatment > 30 minutes > 30 minutes Ongoing management Nursing;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 Urology PGY-2 Pager #[phone] Please page Chief Urology at [phone] from 7 AM - 5 PM or at [phone] after hours with any questions/concerns. documented in [...] reviewed. GI Function: Last BM Date: 09/11/23, Barbour Stool Chart: Type 5: Soft blobs with [...] 86.8 kg (09/09/2023) Current Weight: 84.5 kg Benton Body Weight (Calculated) : 75.3 kg BMI [...] or 5%. Estimated Needs: Total Calorie Needs: 9613-7222 calories/day Method to Estimate Energy Needs: kcal/kg [...] about patient's nutritional care please contact pager [phone] on weekdays 07:30-16:00 or [phone] on weekends/holidays ([facility]). * Clara Luu APRN, C.N.P., D.N.P. - [...] admitted for CBI. He was transferred to [facility] after difficultywith irrigating his Jon and CT [...] and recommendations. Please feel free to page [phone] [phone] after 5 PM and on weekends with additional questions. VIR will continue to follow * Alessandra Aguero D.O. - 09/09/2023 5:26 PM CDTAssociated Order(s): IP CONSULT TO VASCULAR MEDICINE VASCULAR MEDICINE CONSULT NOTE Requesting Physician: Gerri Merrill M.D.,* SUBJECTIVE REASON FOR CONSULT: assistance with AC management, patient on plavix and eliquis admitted with refractory hematuria requing CBI. Recommend heparin drip? thanks [facility] [phone] HISTORY OF PRESENT ILLNESS Mr. Vega is [...] stents placed in total (2016, no prior NM, completed after positive stress test) Recommended for [...] for radiation proctitis SOCIAL HISTORY Lives in [place], [place] OBJECTIVE AVSS General: Lying in bed, [...] Dr. Victoria, the chief urology resident regional clinical research associate. Please page chief Urology Service [place] [phone] [place] [phone] after hours. Paula Hernandez M.D. 09/09/23 9:10 [...] End of Shift Summary: Pt DC'd to [facility] with family. Patient educated on nephrostomy tube [...] Urology consulted after discussion with the catheter environmental services technician who advised that for this patient they are required to get approval from Urologyprior to placing catheter. ED Course as of 09/09/23 0958 TueSeptember 09, 2023 0822 Hemoglobin(!): 8.9 Down from 9.6 one-week ago 0822 Leukocytes(!): 14.5 New leukocytosis with neutrophilia 0822 INR: 1.1 0823 Discussed with the catheter environmental services technician. Bladder scan showed 125 mL. There [...] CDT Procedure visit Department of Urology in [place], [place] [address] [place] [address] Paula Hernandez M.D. [address] [place] [address] Pending Results Name Type Priority Associated Diagnoses [...] CBC without Differential (09/15/2023 3:37 AM CDT) [facility] Hemoglobin 9.8(L) 13.2 - 16.6 g/dL 09/15/2023 [...] CDT Paula Hernandez M.D. LAB BLOOD ADD-ON [facility] [address] [place] [address], [facility] [address] [place] [address] * Heparin Anti-Xa Assay (09/14/2023 3:19 AM CDT) [facility] Heparin Anti-Xa, P 0.11 IU/mL 2023 4:07 [...] Sumit Holbrook M.D. LAB BLOOD NON ADD-ON [address] [address], [facility] [place] [address] * (ABNORMAL) CBC without Differential (09/14/2023 3:19 AM CDT) [facility] Hemoglobin 10.1(L) 13.2 - 16.6 g/dL 09/14/2023 [...] CDT Paula Hernandez M.D. LAB BLOOD ADD-ON [facility] [address] [place] [address], [facility] [address] [place] [address] * IR Nephrostomy Tube Placement Left (09/13/2023 2:20 PM CDT) Anatomical Region Laterality Modality Genito Urinary, Vascular Int erventional RST LOS, Vascular Interventional ARZ LOS, Vascular Interventional FLA LOS Left X-Ray Angiography Impressions 09/13/2023 2:33 PM CDT Left 10 Icelandic percutaneous nephrostomy tube placement. EP Narrative 09/13/2023 [...] tract was further dilated and a 10 Icelandic nephrostomy tube was placed with loop formed [...] sedation timewas: 9 minutes. IMPRESSION: Left 10 Icelandic percutaneous nephrostomy tube placement. EP Latisha Whitehead M.D. IMG IR PROCEDURE S * Gram Stain (09/13/2023 2:17 PM CDT) Pathologist [facility] Gram Stain No organisms seen. White blood cells, Rare 09/13/2023 9:02 PM CDT DT Fluid (Kidney, Left) 09/13/2023 2:17 PM CDT 09/13/2023 3:56 PM CDT Comment:Specimen Source Site : Fluid Latisha Whitehead M.D. LAB MICROBIOLOGY - GENERAL ORDERABLES Performing Organization Address [facility] Co de Phone Number [facility] [address] [place] [address] * Bacterial Culture, Aerobic + Susceptibility (09/13/2023 2:17 PM CDT) [facility] Bacterial Culture, Aerobic + Susc No growth after 5 days of incubation. 09/18/2023 12:35 PM CDT DT Fluid (Kidney, Left) 09/13/2023 2:17 PM CDT 09/13/2023 3:56 PM CDT Comment:Specimen Source Site : Fluid Latisha Whitehead M.D. LAB MICROBIOLOGY - GENERAL ORDERABLES Performing Organization Address [facility] Co de Phone Number [facility] [address] [place] [address], [place] [address] * (ABNORMAL) CBC without Differential (09/13/2023 5:57 [...] CDT Ko Victoria M.D. LAB BLOOD ADD-ON [facility] [address] [place] [address], [facility] [address] [place] [address] * Heparin Anti-Xa Assay (09/13/2023 5:56 AM [...] Sumit Holbrook M.D. LAB BLOOD NON ADD-ON [facility] [address] [place], [place] [phone] [place] [address] * APTT (Activated Partial Thromboplastin Time) (09/13/2023 5:56 AM CDT) [facility] Activated Partial Thrombopl Time, P 35 25 - 37 sec 09/13/2023 7:14 AM CDT DTL Blood (Blood, Venous) 09/13/2023 5:56 AM CDT 09/13/2023 6:53 AM CDT Sumit Holbrook M.D. LAB BLOOD ADD-ON Performing Organization Address City/[facility]/ZIP Co de Phone Number [facility] [address] [place] [address], [place] [address] * (ABNORMAL) Basic Metabolic Panel (09/13/2023 5:56 AM CDT) Pathologist [facility] Potassium, S 3.7 3.6 - 5.2 mmol/L [...] CDT Paula Hernandez M.D. LAB BLOOD ADD-ON [facility] [address] [place] [address], [facility] [address] [place] [address] * NM Kidney DMSA (09/12/2023 12:21 PM [...] reduced radiotracer uptake asdescribed. Js Yang M.D. [facility] PROCEDURES * Transfuse Red Blood Cells : [...] LAB BLOOD ADD-ON Performing Organization Address [facility] Co de Phone Number [facility] [address] [place] [address] * (ABNORMAL) APTT (Activated Partial Thromboplastin Time) (09/12/2023 3:42 AM CDT) [facility] Activated Partial Thrombopl Time, P 49(H) 25 - 37 sec 09/12/2023 4:35 AM CDT DTL Blood (Blood, Venous) 09/12/2023 3:42 AM CDT 09/12/2023 4:00 AM CDT Gerri Merrill M.D., Ph.D. LAB BLOOD A DD-ON Performing Organization Address [facility] Co de Phone Number [facility] [address] [place] [address] * (ABNORMAL) Basic Metabolic Panel (09/11/2023 8:23 [...] CDT Js Yang M.D. LAB BLOOD ADD-ON [facility] [address] [place] [address], [facility] [address] [place] [address] * (ABNORMAL) CBC without Differential (09/11/2023 8:23 [...] [facility]/[place] [address] * (ABNORMAL) APTT (Activated Partial Thromboplastin Time) (09/10/2023 11:42 PM CDT) Pathologist [facility] Activated Partial Thrombopl Time, P 47(H) 25 - 37 sec 09/11/2023 2:05 AM CDT DTL Blood (Blood, Venous) 09/10/2023 11:42 PM CDT 09/11/2023 2:05 AM CDT Gerri Merrill M.D., Ph.D. LAB BLOOD A DD-ON Performing Organization Address City/[facility]/[place] [address] * US Urinary Bladder (09/10/2023 8:41 PM [...] Merrill M.D., Ph.D. LAB BLOOD A DD-ON [facility] [address] [place] [address], [facility] [address] [place] [address] * (ABNORMAL) APTT (Activated Partial Thromboplastin Time) (09/10/2023 10:11 AM CDT) Activated Partial Thrombopl Time, P 63(H) 25 - 37 sec 09/10/2023 10:57 AM CDT DTL Blood (Blood, Venous) 09/10/2023 10:11 AM CDT 09/10/2023 10:40 AM CDT Gerri Merrill M.D., Ph.D. LAB BLOOD A DD-ON Performing Organization Address [facility] de Phone Number [facility] [address] [place], [place] [phone] [place] [address] DTL [facility] 200 [place] [address] * (ABNORMAL) CBC without Differential (09/10/2023 3:27 AM CDT) Pathologist [facility] Hemoglobin 8.1(L) 13.2 - 16.6 g/dL 09/10/2023 [...] LAB BLOOD ADD-ON Performing Organization Address [facility] Co de Phone Number [facility] [address] [place], [place] [phone] [place] [address] DTL [facility] [address] [place] [address] * (ABNORMAL) APTT (Activated Partial Thromboplastin Time) (09/10/2023 12:06 AM CDT) Activated Partial Thrombopl Time, P 57(H) 25 - 37 sec 09/10/2023 1:05 AM CDT DTL Blood (Blood, Venous) 09/10/2023 12:06 AM CDT 09/10/2023 12:33 AM CDT Gerri Merrill M.D., Ph.D. LAB BLOOD A DD-ON Performing Organization Address City/[facility]/ZIP Co de Phone Number [facility] [address] [place], [place] [phone] [place] [address] [facility] [address] [place] [address] * APTT (Activated Partial Thromboplastin Time) (09/09/2023 5:08 PM CDT) Pathologist [facility] Activated Partial Thrombopl Time, P 31 25 - 37 sec 09/09/2023 5:24 PM CDT [facility] Blood (Blood, Venous) 09/09/2023 5:08 PM CDT 09/09/2023 5:12 PM CDT Ko Victoria M.D. LAB BLOOD ADD-ON Performing Organization Address City/[facility]/ZIP Co de Phone Number [facility] [address] [place] [address], [facility] [address] [place] [address] * (ABNORMAL) Dipstick, Urine (09/09/2023 11:28 AM CDT) Pathologist [facility] Hemoglobin, QL, U Large(A) Negative 09/09/2023 12:03 [...] Jeffery Church M.D. LAB URINE ORDERA BLES [facility] [address] [place] [address], [facility] [address] [place] [address] * pH, Random, Urine (09/09/2023 11:28 AM CDT) pH, Random, U 6.3 4.5 - 8.0 09/09/2023 12:19 PM CDT DT Urine 09/09/2023 11:2 8 AM CDT 09/09/2023 11:58 AM CDT Jeffery Church M.D. LAB URINE ORDERA BLES Performing Organization Address City/[facility]/ZIP Co de Phone Number [facility] [address] [place] [address], [facility] [address] [place] [address] * Osmolality, Urine (09/09/2023 11:28 AM CDT) Osmolality, U 380 150 - 1150 mOsm/kg 09/09/2023 12:19 PM CDT DT Urine 09/09/2023 11:2 8 AM CDT 09/09/2023 11:58 AM CDT Jeffery Church M.D. LAB URINE ORDERA BLES [facility] [address] [place] [address], [facility] [address] [place] [address] * (ABNORMAL) Microscopic Manual (09/09/2023 11:28 AM [...] LAB URINE ORDERA SHELLY Performing Organization Address City/[facility]/ZIP Co de Phone Number [facility] [address] [facility] [address] [place] [address] * (ABNORMAL) Gram Stain, Urine (09/09/2023 11:28 AM CDT) Pathologist [facility] Source Urine, Urine, Straight Catheter 09/09/2023 11:58 AM CDT DTL Gram Stain, U Positive(A) Negative 09/09/2023 12:16 PM CDT DTL Comment: Few Gram-negative bacilli ? Yeast Urine 09/09/2023 11:2 8 AM CDT 09/09/2023 11:58 AM CDT Jeffery Church M.D. LAB URINE ORDERA BLEBryon Performing Organization Address City/[facility]/ZIP Co de Phone Number [facility] [address] [place] [address] * (ABNORMAL) Bacterial Culture, Aerobic + Susceptibility, Urine (09/09/2023 11:28 AM CDT) [facility] Urine Culture ENTEROBACTER CLOACAE COMPLEX >100,000 cfu/mL [...] MICROBIOLOGY - GENERAL ORDERABLES Performing Organization Address [facility] Co de Phone Number [facility] [address] [place] [address], [facility] [address] [place] [address] * (ABNORMAL) Urinalysis, with Microscopic: Urine, Straight [...] 09/09/2023 1:02 PM CDT DTL Predicted Range 2480-96070 mg/24 h 09/09/2023 1:02 PM CDT DTL Comment Micro done on <2.5 mL 09/09/2023 12:27 PM CDT DTL Urine (Urine, Straight Catheter) 09/09/2023 11:28 AM CDT 09/09/2023 11:58 AM CDT Jeffery Church M.D. LAB URINE ORDERA BLES Performing Organization Address City/[facility]/ZIP Co de Phone Number [facility] [address] [place] [address], [facility] [address] [place] [address] * US Kidneys Bilateral with Bladder (09/09/2023 [...] CDT Jeffery Church M.D. LAB BLOOD ADD-ON [address] [address], [place] [address] * (ABNORMAL) CBC with Differential, Blood (09/09/2023 8:04 AM CDT) [facility] Hemoglobin 8.9(L) 13.2 - 16.6 g/dL 09/09/2023 [...] CDT Jeffery Church M.D. LAB BLOOD ADD-ON [facility] [address] [place] [address], [facility] [address] [place] [address] * (ABNORMAL) Basic Metabolic Panel (09/09/2023 8:04 [...] [facility]/ZIP Co de Phone Number [facility] [address] [place], [place] [phone] [place] [address] [address] * Type and Screen (with Reflex Antibody [...] BANK T EST ORDERABLES Performing Organization Address [facility]/ZIP Co de Phone Number [facility] [address] [place] [address], [facility] [address] [place] [address] documented in this encounter Visit Diagnoses Diagnosis [...] documented as of this encounter Care Teams Threshing Machine Operator Relationship Specialty Start Date End Date Elsewhere, Pcp PCP - General Internal Medicine 08/13/23 documented as of this encounter
--- OUTSIDE RECORDS SUMMARY | 2023-09-26 14:36 | XMS_ITS | Encounter Summary ---
Author Organization [facility] Address [address] [place] [address] Care Team Providers Care Ham Marker Name Role Phone Elsewhere, Pcp Primary Care Provider Unavailabl e Reason for Visit * Reason Onset Date Comments follow up questions 09/16/2023 Encounter Details Date Type Department Care Team (Latest Contact Info) Description 09/16/2023 Clinical Communication Department of Urology in [place], [place] [address] [place] [address] Provider, Unknown follow up questions Social History Tobacco Use Types Packs/Day Years Used Date Smoking Tobacco: Never Smokeless Tobacco: Never [employer] Utilities Answer Date Recorded In the past [...] [facility] 09/09/2023 Sex and [...] Procedure visit Department of Urology in [place], [place] [address] [place] [address] Paula Hernandez M.D. 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
--- OUTSIDE RECORDS SUMMARY | 2023-09-26 14:36 | XMS_ITS | Encounter Summary ---
Author Organization [facility] Address [address] [place] [address] Care Team Providers Care Graphic Illustrator Name Role Phone Elsewhere, Pcp Primary Care Provider Unavailabl e Encounter Details Date Type Department Care Team (Late st Contact Info) Description 09/09/2023 Documentation Department of Urology in [place], [place] [address] [place] [address] Ko Victoria M.D. [address] [place] [address] Social History Tobacco Use Types Packs/Day Years Used Date Smoking Tobacco: Never Smokeless Tobacco: Never [facility] Utilities Answer Date Recorded In the past 12 months has [facility], gas, oil, or water [facility] threatened to shut off services in your [...] situation today? I have a [facility] place to live 09/09/2023 Sex and [...] Upcoming Encounters Date Type Department Care Team ([facility] Contact Info) Description 10/14/2023 1:00 PM CDT Procedure visit Department of Urology in [place], [place] [address] [place] [address] Paula Hernandez M.D. [address] [place] [address] documented as of this encounter Visit Diagnoses Not on filedocumented in this encounter Care Teams Graphic Illustrator Relationship Specialty Start Date End Date Elsewhere, Pcp PCP - General Internal Medicine 08/13/23 documented as of this encounter
--- OUTSIDE RECORDS SUMMARY | 2023-09-26 14:37 | XMS_ITS | Encounter Summary ---
Author Organization [facility] Address [address] [place] [address] Care Team Providers Care Adjunct Lecturer Name Role Phone Elsewhere, Pcp Primary Care Provider Unavailabl e Reason for Visit * Reason Comments Urinary Problem Rapid Heart Rate Encounter Details Date Type Department Care Team (Latest Contact Info) Description 08/30/2023 7:35 PM CDT - 09/05/2023 4:09 PM CDT Hospital Encounter [facility], [facility], [facility], First Floor [address] [place] [phone] Kirstin Hughes M.D. [address] [place] [phone] Mayur Alvarez M.D. [address] [place] [phone] Hematuria (Primary Dx); Tachycardia; Hematuria Gross Discharge Disposition: Home-Health Care Svc Social History Tobacco Use Types Packs/Day Years Used Date Smoking Tobacco: Never Smokeless Tobacco: Never [facility] Utilities Answer Date Recorded In the [...] your living situation today? I have a [facility] place to live 09/05/2023 Sex and Gender [...] PM CDT DISCHARGE SUMMARY BRIEF OVERVIEW Hospital: [facility] Discharge Provider: Mayur Alvarez M.D. Primary Team: [...] HOSPITAL ROMB OR DISCHARGE DISPOSITION Home-Health Care [facility] [6] ACTIVE ISSUES REQUIRING FOLLOW UP OUTPATIENT [...] CONSULT TO CARE MANAGEMENT IP CONSULT TO COMMUNITY SERVICE WORKER WOUND CARE IP CONSULT TO HYPERBARIC MEDICINE CONDITION AT DISCHARGE improved Discharge instructions were provided to the patient and caregiver(s). documented in this encounter Discharge Instructions * Patient Instructions* Carmen Louis, R.N. - 08/31/2023 9:44 AM CDT The Senior LinkAge Line?? is a service of the [place] Board on Aging in partnership with [place]'s Area Agencies on Aging. It is a free service of the [facility] that connects older [place]ians and their families with the help they need. Call the Senior LinkAge Line?? at: [phone] M-F, 8am-4:30pm to connect with specialists that are available to assist you with your specific needsor check out their website at [email or web address] * Attachments The following attachments cannot be sent through Care Everywhere. * Cefdinir (By mouth) (Guyanese) documented in this encounter Medications at Time [...] questions or concerns. Pager during business hours: [phone] Pager after hours: [phone] * Jeffery Valdez M.D. - 09/04/2023 10:34 [...] questions or concerns. Pager during business hours: [phone] Pager after hours: [phone] * Jeffery Valdez M.D. - 09/03/2023 4:10 [...] consider transitioning him back [facility] Summary: Diet: Regular Activity: Ad kong DVT PPX: Holding GI PPX: None Bowel Regimen: Senna, MiraLax IVF: LR 50 Abx/Microbiology: Ucx pending Pain Control: Tylenol, 2.5/5 oxycodone Home Meds Resumed: Enzalutamide, metoprolol, mirabegron, rosuvastatin, trospium Held Home Meds: Plavix, Xarelto Consults: None Jeffery Valdez M.D. 09/03/2023 10:45 AM CDT Please page the Urology Chief Service with questions or concerns. Pager during business hours: [phone] Pager after hours: [phone] * Paula Hernandez M.D. - 09/02/2023 6:25 [...] questions or concerns. Pager during business hours: [phone] Pager after hours: [phone] * Michelle Willams R.N., C.W.C.N. - 09/01/2023 11:43 AM CDT [facility] Wound RN consulted to assess [...] Secondary Dressing Status Clean;Dry;Intact Changed by Wound sagger maker Ongoing management Nursing;Wound/deli cook Urine Assessment Urine Color Colorless Hematuria Scale [place] Urine Appearance Clear;Sediment Head to toe skin [...] nursing. They agree to the plan. The [facility] RN will continue to see the patient, [...] update the patient. Son stated that a Mechanic Marine Engine visited the home and will be trying to assist both and patient with cares/coordination. OBJECTIVE Patient is located on [facility] room 111. Referrals were sent to the following agencies: Home Medical Care - Admitted Since 08/30/2023 Service Provider Request Status Selected Services Address Phone Fax Patient Preferred [facility] [place] Pending - Request Sent N/A [address] [facility] [address] [phone] -- [facility] Care Pending - Request Sent N/A [address] [facility] [address], [place] [address] -- Home Health Care Pending - Request Sent N/A [address] [facility] [address] [address] -- [facility] Pending - Request Sent N/A [address] [facility] [phone] -- [facility] Pending - Request Sent N/A [address] [facility] [phone] -- [facility] Pending - Request Sent N/A [address] [facility] [address] [address] [phone] -- [facility] Home Health Declined Facility Full N/A [address] [facility] [phone] -- ASSESSMENT / PLAN ASSESSMENT Monitor Technician attempted to contact patient on room phone but was unable to get through. Case Manageras able to reach his son who will update that patient that the preferred home health agency was unable to accept and that referrals would be sent to other home health agencies. Requested services arenursing for wound care and catheter and PT/OT. PLAN Monitor Technician will follow up with referrals. Case [...] questions or concerns. Pager during business hours: [phone] Pager after hours: [phone] * Paula Hernandez M.D. - 08/31/2023 10:45 [...] risks associated with surgery and anesthesia including SC, stroke, and VTE were also discussed. Finally, [...] questions or concerns. Pager during business hours: [phone] Pager after hours: [phone] Associated attestation - Mayur Alvarez M.D. - [...] discontinuation of antibiotics. Pedrito Salazar Pharm.D., R.Ph., [facility] Admission Medication History Note Adherence issues: [...] Complete Set By: Demarco Salazar Pharm.D., R.Ph., [facility] at 08/31/2023 7:22 AM Taking? Last [...] an 83 y.o. male transferred to the [facility] ED for further management of gross hematuria. [...] for CBI. He was then transferred to [facility] on 08/12; a CT cystogram was performed [...] was initiated on CBI and transferred to [facility] for further management. On my initial evaluation [...] for radiation proctitis SOCIAL HISTORY Lives in [place], [place] OBJECTIVE Vitals Blood pressure 134/84, pulse [...] & Screen Expiration 09/02/2023 23:59 Testing Location [place] Imagin08/30/23 EXAM: US URINARY BLADDER COMPARISON: CT [...] hematuria, clot obstruction and was transferred to [facility] for further evaluation and management. Urinary bladder ultrasound showing 5 cm clot burden; catheter draining on fast-rate CBI after multiple rounds of hand irrigation. Plan - Continue CBI - Q2h hr hand irrigations - NPO overnight pending am re-evaluation - Hold Plavix, Xarelto for now The above was discussed with Drs. Venegas and Lefty, the chief urology residents community relations police lieutenant. Please page chief Urology [place] [phone] [place] [phone] afterhours. documented in this encounter Procedure Notes [...] on androgen deprivation therapy. 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 Services Used: No Person(s) present during interview: [...] Communication: Can write, Talks, Understands speaking, Understands Guyanese, Reads Shopping: Needs assistance Medication Management: Independent Housekeeping: Needs assistance Meal Prep: Independent Assistive Devices: Walker - front wheeled, Eyeglasses, Hearing aid(s) Agency Name: [facility] Provided: Correction/PT/OT Transportation: Support from family Baseline Services/Resources Primary care clinic and provider: ELSEWHERE, PCP Additional Resources: N/A Anticipated Needs Functional Status: Housekeeping, Shopping, Transportation use (drive car, use taxi/bus), Mobility, Transfer to/from bed, chair, etc., Bathing Assistive Devices: Eyeglasses, Hearing aid(s), Walker - front wheeled Services/Resources: Home health Agency Name: [facility] Provided: Correction/PT/OT Anticipated Modifications to the Patient's Home: None Transportation Needs: Support from family Does the patient need discharge transport arranged?: No Anticipated Discharge Destination: Home-Health Care [facility] ASSESSMENT / PLAN Assessment: The machine lacer met with Kalen Vega to discuss his current hospitalization and home goingneeds. The patient was accompanied by son, Kar . The patient was a reliable historian. The role ofRN Monitor Technician was reviewed. The patient reviewed his prior level of care and support system. The patient receives support from his and children. The patient described his living environment as a home with bedroom and bathroom on same floor withstairs to enter with rails. Housekeeping, grocery shopping, meal prep, and other household responsibilities have previously been completed by patient and patient's son. machine lacer discussed the patient's potential needs at dismissal based on their home setting, previous needs and responsibilities, homebound status, and relevant assessments with the patient. The patient will be safe and supported to return home with [facility] or previous services noted above when [...] with cares and needs and his has [facility]. Patient stated that [facility] was supposed to be set- up at discharge after the last hospital stay but that the company never received orders to start care and that he was told by nursing that due to his PICC removal he would not need care. Monitor Technician will clarifywith home health team regarding [...] chart and meeting with the patient, the machine lacer deemed the LACE+/readmission questions were appropriate. The [...] current readmission could have been prevented. The machine lacer will share this information with the care team. The patient reports understanding that he will dismiss from the hospital when medically stable. Thefollowing potential barriers to dismissal have been identified: Home Health Care Addendum 1230: Monitor Technician called [facility]. They received the referral but declined due to being at capacity. Plan: The patient agrees with the following plan. Patient's anticipated discharge disposition is: Home with Home Healthcare Referrals sent. Transportation upon dismissal will be provided by family--Kar . machine lacer recommended home health services. machine lacer provided information regarding the dismissal process and the Senior Linkage Line ([place] Board on Aging) handout. machine lacer placed or requested the following hospital-based consult orders and/or referrals: None. machine lacer will follow up with the patient to [...] with updates and/or transition plan to come. machine lacer encouraged the patient to reach out with [...] CDT Pre-op Diagnosis Hematuria Post-op Diagnosis Hematuria Palliative Care Physician A assistant import manager actively participated and [...] or filling defects. 5. Placement of [address] with 20 cc in [...] The resectoscope was removed and a [address] catheter was placed with 20 [...] secondary to cystostomy closure presenting today from [place] with concerns for worsening hematuria. He was [...] not diaphoretic. ASSESSMENT/PLAN Assessment and Plan Kalen eVga is an 83-year-old male with prostate cancer [...] 08/30/2023 8:48 AM CDT Pt transferred from [facility] via EMS, pt c/o blocked jon cath that started today. Pt had a right uretal stent exchange and an open bladder repair 08/15/23 and was discharged 08/25. Pt had a3 way jon placed at [place], and transferred here because the clots returned. [...] RN, CPN, CCDS, CCS, CRC Clinical Documentation Directional Survey Drafter Query created by: ELMER Barker, RN, CPN, [...] CDT Procedure visit Department of Urology in [place], [place] [address] [place] [address] Paula Hernandez M.D. [address] [place] [address] Pending Results Name Type Priority Associated Diagnoses [...] [facility] [address] [place] [address], [facility] [address] [place] [address] * (ABNORMAL) Basic Metabolic Panel (09/05/2023 4:52 [...] Jakob De Paz M.D. LAB BLOOD ADD-ON [facility] [address] [place] [address], [facility] [address] [place] [address] * (ABNORMAL) Basic Metabolic Panel (09/04/2023 8:15 [...] CDT Jeffery Valdez M.D. LAB BLOOD ADD-ON [address] [address], [facility] [address] [place] [address] * (ABNORMAL) CBC without Differential (09/04/2023 8:15 [...] - 14.5 % 09/04/2023 9:19 PM CDT [facility] Platelet Count 306 135 - 317 x10(9)/L 09/04/2023 9:19 PM CDT [facility] Leukocytes 7.5 3.4 - 9.6 x10(9)/L 09/04/2023 9:19 PM CDT [facility] Blood (Blood, Venous) 09/04/2023 8:15 PM CDT 09/04/2023 8:52 PM CDT Jeffery Valdez M.D. LAB BLOOD ADD-ON [facility] [address] [place] [address], [facility] [address] [place] [address] * Transfuse Red Blood Cells : (09/04/2023 3:30 PM CDT) Jeffery Valdez M.D. BLOOD TRANSFUSION OR DERABLES * Transfuse Red Blood Cells : , 1 Units (09/04/2023 3:30 PM CDT) Jeffery Valdez M.D. BLOOD TRANSFUSION OR DERABLES * Type and Screen (with Reflex Antibody ID) (09/04/2023 10:59 AM CDT) [facility] ABOR O Pos Not applicable 09/04/2023 11:46 AM CDT STRM Antibody Screen Negative Negative 09/04/2023 11:59 AM CDT STRM Type & Screen Expiration 09/07/2023 23:59 09/04/2023 11:46 AM CDT STRM Testing Location [place] DEFAULT 09/04/2023 11:21 AM CDT STR[facility] Blood (Blood, Venous) 09/04/2023 10:59 AM CDT 09/04/2023 11:21 AM CDT Jeffery Valdez M.D. LAB BLOOD BANK TEST ORDERABLES [facility] [address] [place] [address], [facility] [address] [place] [address] * Heparin Anti-Xa Assay (09/04/2023 7:34 AM [...] Alvarez M.D. LAB BLOOD NON A DD-ON [facility] - [address] [address], [facility] [address] [address] * (ABNORMAL) CBC without Differential (09/04/2023 7:34 AM CDT) [facility] Hemoglobin 7.7(L) 13.2 - 16.6 g/dL 09/04/2023 [...] LAB BLOOD ADD-ON Performing Organization Address [facility] Co de Phone Number [facility] [address] [facility] 200 [place] [address] * Heparin Anti-Xa Assay (09/04/2023 12:30 AM [...] NON A DD-ON Performing Organization Address [facility] Co de Phone Number [facility] [address] [place] [address], [facility] 200 [place] [address] * Bacterial Culture, Aerobic + Susceptibility, Urine (09/03/2023 10:50 AM CDT) Pathologist [facility] Urine Culture No growth after 1 day of incubation. 09/04/2023 8:52 AM CDT DTL Urine (Urine, Indwelling Catheter) 09/03/2023 10:50 AM CDT 09/03/2023 11:53 AM CDT Comment:Specimen Source Site : Urine Jeffery Valdez M.D. LAB MICROBIOLOGY - G ENERAL ORDERABLES Performing Organization Address [facility]/ZIP Co de Phone Number [facility] [address] [place] [address], [facility] DTL [facility] [address] [place] [address] * (ABNORMAL) CBC without Differential (09/03/2023 3:29 AM CDT) Pathologist [facility] Hemoglobin 8.0(L) 13.2 - 16.6 g/dL 09/03/2023 [...] M.D. LAB BLOOD ADD-ON Performing Organization Address City/[facility]/ZIP Co de Phone Number [facility] [address] [place] [address], [facility] 200 [place] [address] * Heparin Anti-Xa Assay (09/03/2023 3:29 AM [...] Alvarez M.D. LAB BLOOD NON A DD-ON [facility] [address] [place] [address], [facility] 200 [place] [address] * Heparin Anti-Xa Assay (09/02/2023 2:57 AM CDT) Pathologist [facility] Heparin Anti-Xa, P 0.24 IU/mL 2023 4:09 [...] BLOOD NON A DD-ON Performing Organization Address City/[facility]/ZIP Co de Phone Number [facility] [address] [place], [place] [phone] [place] [address] [facility] [address] [place] [address] * (ABNORMAL) CBC without Differential (09/01/2023 8:16 [...] M.D. LAB BLOOD ADD-ON Performing Organization Address City/[facility]/ZIP Co de Phone Number [facility] [address] [place] [address], [facility] DTL [facility] [address] [place] [address] * Heparin Anti-Xa Assay (09/01/2023 6:50 PM CDT) Pathologist [facility] Heparin Anti-Xa, P 0.35 IU/mL 2023 7:47 [...] BLOOD NON A DD-ON Performing Organization Address City/[facility]/ZIP Co de Phone Number [facility] [address] [place] [address], [facility] [address] [place] [address] * APTT (Activated Partial Thromboplastin Time) (09/01/2023 9:05 AM CDT) Pathologist [facility] Activated Partial Thrombopl Time, P 28 25 - 37 sec 09/01/2023 9:35 AM CDT [facility] Blood (Blood, Venous) 09/01/2023 9:05 AM CDT 09/01/2023 9:21 AM CDT Paula Hernandez M.D. LAB BLOOD ADD-ON [facility] [address] [place] [address], [facility] STMA [facility] [address] [place] [address] * (ABNORMAL) Basic Metabolic Panel (08/31/2023 9:36 [...] CDT Paula Hernandez M.D. LAB BLOOD ADD-ON [facility] [address] [place] [address], [facility] 200 [place] [address] * (ABNORMAL) CBC without Differential (08/31/2023 9:36 [...] CDT Paula Hernandez M.D. [place] [address], [facility] [place] [address] * [place] Fluoro Less Than 1 Hour [...] D ADD-ON [facility] [address] [place] [address], [facility] [address] [place] [address] * Type and Screen (with Reflex Antibody ID) (08/30/2023 9:50 PM CDT) [facility] ABORh O Pos Not applicable 08/30/2023 10:17 PM CDT STRM Antibody Screen Negative Negative 08/30/2023 10:31 PM CDT STRM Type & Screen Expiration 09/02/2023 23:59 08/30/2023 10:17 PM CDT STRM Testing Location [place] DEFAULT 08/30/2023 9:58 PM CDT STRM Blood (Blood, Venous) 08/30/2023 9:50 PM CDT 08/30/2023 9:58 PM CDT Shannan Correa D.O., M.H.A. LAB BLOOD BANK TEST ORDERABLES Performing Organization Address [facility] Co de Phone Number [facility] [address] [place] [address], [facility] STRM [facility] [address] [place] [address] * Lactate (08/30/2023 9:50 PM CDT) [facility] Lactate, P 1.8 0.5 - 2.2 mmol/L 08/30/2023 10:09 PM CDT [facility] Blood (Blood, Venous) 08/30/2023 9:50 PM CDT 08/30/2023 9:55 PM CDT Shannan Correa D.O., M.H.A. LAB BLOOD NON ADD-ON [facility] [address] [place] [address], [facility] STMA [facility] [address] [place] [address] * (ABNORMAL) Basic Metabolic Panel (08/30/2023 9:49 [...] Correa D.O., M.H.A. LAB BLOOD ADD- ON [facility] [address] [place] [address], [facility] STMA [facility] [address] [place] [address] * (ABNORMAL) CBC with Differential, Blood (08/30/2023 [...] Correa D.O., M.H.A. LAB BLOOD ADD- ON [facility] [address] [place] [address], [place] STMA [facility] [address] [place] [address] [facility] [address] [place] [address] * DX Chest AP or PA and [...] CDT) Ventricular Rate ECG/Min [address] Interval 136 ms MUSE QRSD Interval 64 ms MUSE QT Interval 260 ms MUSE QTC Interval 403 ms MUSE P Reston 44 degrees MUSE R [place] 9 degrees MUSE T Wave Reston -76 degrees MUSE 08/30/2023 7:44 PM CDT [...] give total of 40 mEq Dissolve per room service runner recommendations. Do NOT chew or swallow tablet., [...] give total of 40 mEq Dissolve per room service runner recommendations. Do NOT chew or swallow tablet., [...] 2256 documented in this encounter Care Teams Adjunct Lecturer Relationship Specialty Start Date End Date Elsewhere, Pcp PCP - General Internal Medicine 08/13/23 documented as of this encounter
--- OUTSIDE RECORDS SUMMARY | 2023-09-26 14:37 | XMS_ITS | Encounter Summary ---
Author Organization [facility] Address [address] [place] [address] Care Team Providers Care Bell Spinner Sousaphones Name Role Phone Elsewhere, Pcp Primary Care Provider Unavailabl e Encounter Details Date Type Department Care Team (Late st Contact Info) Description 08/26/2023 Orders Only Department of Urology in [place], [place] [address] [place] [address] Paula Hernandez M.D. [address] [place] [address] Social History Tobacco Use Types Packs/Day Years Used Date Smoking Tobacco: Never Smokeless Tobacco: Never [facility] Utilities Answer Date Recorded In the past 12 months has [facility] [employer], gas, oil, or water [employer]sis[employer] threatened to shut off services in your [...] CDT Procedure visit Department of Urology in [place], [place] [address] [place] [address] Paula Hernandez M.D. [address] [place] [address] documented as of this encounter Visit Diagnoses Not on filedocumented in this encounter Care Teams Bell Spinner Sousaphones Relationship Specialty Start Date End Date Elsewhere, Pcp PCP - General Internal Medicine 08/13/23 documented as of this encounter
--- OUTSIDE RECORDS SUMMARY | 2023-09-26 14:37 | XMS_ITS | Encounter Summary ---
Author Organization [facility] Address [address] [place] [address] Care Team Providers Care Industry Consultant Name Role Phone Elsewhere, Pcp Primary Care Provider Unavailabl e Reason for Visit * Reason Comments Urinary Problem Rapid Heart Rate Encounter Details Date Type Department Care Team (Late st Contact Info) Description 08/31/2023 12:36 PM CDT - 08/31/2023 2:31 PM CDT Surgery RST ROMB MAIN OR [address] [place] [address] Mayur Alvarez M.D. [address] [place] [address] CYSTOSCOPY EVACUATION CLOTS Social History Tobacco Use Types Packs/Day Years Used Date Smoking Tobacco: Never Smokeless Tobacco: Never [facility] Utilities Answer Date Recorded In the past 12 months has [facility] [employer], gas, oil, or water [email or web address] threatened to shut off services in your [...] [facility] place to live 08/13/2023 Sex and [...] CDT DISCHARGE SUMMARY BRIEF OVERVIEW Hospital: RST [facility] Discharge Provider: Mayur Alvarez M.D. Primary [...] A, M.D. T ROMB OR DISCHARGE DISPOSITION [facility] Care [facility] [6] ACTIVE ISSUES REQUIRING FOLLOW UP OUTPATIENT [...] CONSULT TO CARE MANAGEMENT IP CONSULT TO ELECTRICAL DESIGNER DRAFTER WOUND CARE IP CONSULT TO HYPERBARIC MEDICINE CONDITION AT DISCHARGE improved Discharge instructions were provided to the patient and caregiver(s). documented in this encounter Discharge Instructions * Patient Instructions* Carmen Louis R.N. - 08/31/2023 9:44 AM CDT The Senior LinkAge Line?? is a service of the [place] Board on Aging in partnership with [place]'s Area Agencies on Aging. It is a free service of the [facility] of [place] that connects older [place]ians and their families with the help they need. Call the Senior LinkAge Line?? at: [phone] M-F, 8am-4:30pm to connect with specialists that are available to assist you with your specific needsor check out their website at https://www.reQwip.Dogi * Attachments The following attachments cannot be sent through Care Everywhere. * Cefdinir (By mouth) (Pakistani) documented in this encounter Medications at Time [...] questions or concerns. Pager during business hours: [phone] Pager after hours: [phone] * Jeffery Valdez M.D. - 09/04/2023 10:34 [...] questions or concerns. Pager during business hours: [phone] Pager after hours: [phone] * Jeffery Valdez M.D. - 09/03/2023 4:10 [...] consider transitioning [facility]: Diet: Regular Activity: Ad kong [...] questions or concerns. Pager during business hours: [phone] Pager after hours: [phone] * Paula Hernandez M.D. - 09/02/2023 6:25 [...] questions or concerns. Pager during business hours: [phone] Pager after hours: [phone] * Michelle Willams R.N., C.W.C.N. - 09/01/2023 11:43 AM CDT [facility] Wound RN consulted to assess Kalen Craig [...] Secondary Dressing Status Clean;Dry;Intact Changed by Wound software quality analyst Ongoing management Nursing;Wound/data integration architect Urine Assessment Urine Color Colorless Hematuria Scale Ogle Urine Appearance Clear;Sediment Head to toe skin [...] update the patient. Son stated that a Glue Plant Operator visited the home and will be trying to assist both and patient with cares/coordination. OBJECTIVE Patient is located on [facility] room 111. Referrals were sent to the following agencies: Home Medical Care - Admitted Since 08/30/2023 Service Provider Request Status Selected Services Address Phone Fax Patient Preferred [facility] - [place] Pending - Request Sent N/A [address], [facility] [phone] -- [facility] Home Care Pending - Request Sent N/A [address], [facility] [address] [phone] -- Home Health Care Pending - Request Sent N/A [address], [facility] [address] [phone] -- [facility] Pending - Request Sent N/A [address] [facility] [phone] -- [facility] Pending - Request Sent N/A [address] [facility] [phone] -- [facility] Pending - Request Sent N/A [address] [facility] [address], [facility] [address] [phone] -- [facility] Home Health Declined Facility Full N/A [address] [facility] [phone] -- ASSESSMENT / PLAN ASSESSMENT Dough Mixing Machine Operator attempted to contact patient on room phone but was unable to get through. Case Manageras able to reach his son who will update that patient that the preferred home health agency was unable to accept and that referrals would be sent to other home health agencies. Requested services arenursing for wound care and catheter and PT/OT. PLAN Dough Mixing Machine Operator will follow up with referrals. Case Manger [...] questions or concerns. Pager during business hours: [phone] Pager after hours: [phone] * Paula Hernandez M.D. - 08/31/2023 10:45 [...] risks associated with surgery and anesthesia including NC, stroke, and VTE were also discussed. Finally, [...] questions or concerns. Pager during business hours: [phone] Pager after hours: [phone] Associated attestation - Mayur Alvarez M.D. - [...] Complete Set By: Demarco Salazar Pharm.D., R.Ph., [facility] at 08/31/2023 7:22 AM Taking? [...] an 83 y.o. male transferred to the [facility] ED for further management of [...] for CBI. He was then transferred to [facility] on 08/12; a CT cystogram [...] was initiated on CBI and transferred to [facility] for further management. On my [...] for radiation proctitis SOCIAL HISTORY Lives in [place], [place] OBJECTIVE Vitals Blood pressure 134/84, pulse [...] & Screen Expiration 09/02/2023 23:59 Testing Location [place] Imagin08/30/23 EXAM: US URINARY BLADDER COMPARISON: CT [...] hematuria, clot obstruction and was transferred to [facility] for further evaluation and management. Urinary bladder ultrasound showing 5 cm clot burden; catheter draining on fast-rate CBI after multiple rounds of hand irrigation. Plan - Continue CBI - Q2h hr hand irrigations - NPO overnight pending am re-evaluation - Hold Plavix, Xarelto for now The above was discussed with Drs. Venegas and Lefty, the chief urology residents cold roll packer sheet iron. Please page chief Urology Service [place] [phone] [place] [phone] afterhours. documented in this encounter Procedure Notes [...] on androgen deprivation therapy. 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. No scuba diving experience. Electronic health [...] prolonged inpatient stay, would request transfer to [facility] prior to initiation of hyperbaric [...] 11 Referral Reason: Discharge Planning Primary Language: Pakistani Dot Compliance Coordinator Services Used: No Person(s) present during interview: [...] Communication: Can write, Talks, Understands speaking, Understands Pakistani, Reads Shopping: Needs assistance Medication Management: Independent Housekeeping: Needs assistance Meal Prep: Independent Assistive Devices: Walker - front wheeled, Eyeglasses, Hearing aid(s) Agency Name: [facility] Provided: Assisted/PT/OT Transportation: Support from family Baseline Services/Resources Primary care clinic and provider: ELSEWHERE, PCP Additional Resources: N/A Anticipated Needs Functional Status: Housekeeping, Shopping, Transportation use (drive car, use taxi/bus), Mobility, Transfer to/from bed, chair, etc., Bathing Assistive Devices: Eyeglasses, Hearing aid(s), Walker - front wheeled Services/Resources: Home health Agency Name: [facility] Provided: Assisted/PT/OT Anticipated Modifications to the Patient's Home: None Transportation Needs: Support from family Does the patient need discharge transport arranged?: No Anticipated Discharge Destination: Home-Health Care [facility] ASSESSMENT / PLAN Assessment: The director records management met with Kalen Vega to discuss his current hospitalization and home goingneeds. The patient was accompanied by son, Kar . The patient was a reliable historian. The role ofRN Dough Mixing Machine Operator was reviewed. The patient reviewed his prior level of care and support system. The patient receives support from his and children. The patient described his living environment as a home with bedroom and bathroom on same floor withstairs to enter with rails. Housekeeping, grocery shopping, meal prep, and other household responsibilities have previously been completed by patient and patient's son. director records management discussed the patient's potential needs at dismissal based on their home setting, previous needs and responsibilities, homebound status, and relevant assessments with the patient. The patient will be safe and supported to return home with [facility] or previous services noted above when medically [...] PICC removal he would not need care. Dough Mixing Machine Operator will clarifywith home health team regarding if [...] chart and meeting with the patient, the director records management deemed the LACE+/readmission questions were appropriate. The [...] current readmission could have been prevented. The director records management will share this information with the care team. The patient reports understanding that he will dismiss from the hospital when medically stable. Thefollowing potential barriers to dismissal have been identified: Home Health Care Addendum 1230: Dough Mixing Machine Operator called [facility]. They received the referral but declined due to being at capacity. Plan: The patient agrees with the following plan. Patient's anticipated discharge disposition is: Home with Home Healthcare Referrals sent. Transportation upon dismissal will be provided by family--Kar . director records management recommended home health services. director records management provided information regarding the dismissal process and the Senior Linkage Line ([place] Board on Aging) handout. director records management placed or requested the following hospital-based consult orders and/or referrals: None. director records management will follow up with the patient to [...] with updates and/or transition plan to come. director records management encouraged the patient to reach out with [...] CDT Pre-op Diagnosis Hematuria Post-op Diagnosis Hematuria Truck Shop Supervisor A physical therapist assistant actively participated and was necessary for [...] or filling defects. 5. Placement of [address] catheter with 20 cc in [...] The resectoscope was removed and a [address] catheter was placed with 20 [...] secondary to cystostomy closure presenting today from [facility] with concerns for worsening hematuria. He was [...] 08/30/2023 8:48 AM CDT Pt transferred from [facility] via EMS, pt c/o blocked jon cath that started today. Pt had a right uretal stent exchange and an open bladder repair 08/15/23 and was discharged 08/25. Pt had a3 way jon placed at [facility], and transferred here because the clots returned. [...] RN, CPN, CCDS, CCS, CRC Clinical Documentation Power Truck Driver Query created by: ELMER Barker, RN, CPN, [...] CDT Procedure visit Department of Urology in [place], [place] [address] [place] [address] Paula Hernandez M.D. [address] [place] [address] Pending Results Name Type Priority Associated Diagnoses [...] CDT Roxy Romero M.D. LAB BLOOD ADD-ON [facility] [address] [place] [address], [facility] DTL [facility] [address] [place] [address] * (ABNORMAL) Basic Metabolic Panel (09/05/2023 4:52 [...] Jakob De Paz M.D. LAB BLOOD ADD-ON [address] [address], [address] [address] * (ABNORMAL) Basic Metabolic Panel (09/04/2023 8:15 PM CDT) [facility] Potassium, S 3.2(L) 3.6 - 5.2 [...] CDT Jeffery Valdez M.D. LAB BLOOD ADD-ON [address] [address], [facility] DTFormerly [facility] [address] [place] [address] * (ABNORMAL) CBC without Differential (09/04/2023 8:15 [...] M.D. LAB BLOOD ADD-ON Performing Organization Address City/[facility]/ZIP Co de Phone Number [facility] [address] [place] [address], [facility] [address] [place] [address] * Transfuse Red Blood Cells : (09/04/2023 3:30 PM CDT) Jeffery Valdez M.D. BLOOD TRANSFUSION OR DERABLES * Transfuse Red Blood Cells : , 1 Units (09/04/2023 3:30 PM CDT) Jeffery Valdez M.D. BLOOD TRANSFUSION OR DERABLES * Type and Screen (with Reflex Antibody ID) (09/04/2023 10:59 AM CDT) Pathologist [facility] ABORh O Pos Not applicable 09/04/2023 11:46 AM CDT STRM Antibody Screen Negative Negative 09/04/2023 11:59 AM CDT STRM Type & Screen Expiration 09/07/2023 23:59 09/04/2023 11:46 AM CDT STRM Testing Location [facility] DEFAULT 09/04/2023 11:21 AM CDT [facility] Blood (Blood, Venous) 09/04/2023 10:59 AM CDT 09/04/2023 11:21 AM CDT Jeffery Valdez M.D. LAB BLOOD BANK TEST ORDERABLES Performing Organization Address [facility]/ZIP Co de Phone Number [facility] [address] [place] [address], [facility] [address] [place] [address] * Heparin Anti-Xa Assay (09/04/2023 7:34 AM CDT) [facility] Heparin Anti-Xa, P 0.12 IU/mL 2023 [...] Alvarez M.D. LAB BLOOD NON A DD-ON [place] [address] [place] [address] * (ABNORMAL) CBC without Differential (09/04/2023 7:34 [...] BLOOD ADD-ON Performing Organization Address [facility] Co de Phone Number [facility] [address] [place], [place] [address] [place] [address] [address] [place] [address] * Heparin Anti-Xa Assay (09/04/2023 12:30 AM [...] BLOOD NON A DD-ON Performing Organization Address City/[facility] Co de Phone Number [facility] [address] [place] [address], [facility] DTFormerly [facility] [address] [place] [address] * Bacterial Culture, Aerobic + Susceptibility, Urine (09/03/2023 10:50 AM CDT) Urine Culture No growth after 1 day of incubation. 09/04/2023 8:52 AM CDT DT Urine (Urine, Indwelling Catheter) 09/03/2023 10:50 AM CDT 09/03/2023 11:53 AM CDT Comment:Specimen Source Site : Urine Jeffery Valdez M.D. LAB MICROBIOLOGY - G ENERAL ORDERABLES Performing Organization Address City/[facility]/ZIP Co de Phone Number [facility] [address] DTFormerly [facility] [address] [place] [address] * (ABNORMAL) CBC without Differential (09/03/2023 3:29 AM CDT) [facility] Hemoglobin 8.0(L) 13.2 - 16.6 g/dL [...] CDT Paula Hernandez M.D. LAB BLOOD ADD-ON [facility] [address] [place], [place] [address] [place] [address] DTFormerly [facility] [address] [place] [address] * Heparin Anti-Xa Assay (09/03/2023 3:29 AM [...] Alvarez M.D. LAB BLOOD [place] [address], [facility] [place] [address] * Heparin Anti-Xa Assay (09/02/2023 2:57 AM [...] A DD-ON Performing Organization Address [facility] Co de Phone Number [facility] [address] [place], [place] [address] DTFormerly [facility] [address] [place] [address] * (ABNORMAL) CBC without Differential (09/01/2023 8:16 PM CDT) [facility] Hemoglobin 8.5(L) 13.2 - 16.6 g/dL [...] M.D. LAB BLOOD ADD-ON Performing Organization Address City/[facility]/ZIP Co de Phone Number [facility] [address] [place] [address], [facility] [address] [place] [address] * Heparin Anti-Xa Assay (09/01/2023 6:50 PM CDT) [facility] Heparin Anti-Xa, P 0.35 IU/mL 2023 [...] A DD-ON Performing Organization Address [facility]/ZIP Co de Phone Number [facility] [address] [place] [address], [facility] DTL [facility] [address] [place] [address] * APTT (Activated Partial Thromboplastin Time) (09/01/2023 9:05 AM CDT) Pathologist [facility] Activated Partial Thrombopl Time, P 28 25 - 37 sec 09/01/2023 9:35 AM CDT [facility] Blood (Blood, Venous) 09/01/2023 9:05 AM CDT 09/01/2023 9:21 AM CDT Paula Hernandez M.D. LAB BLOOD ADD-ON Performing Organization Address [facility]/ZIP Co de Phone Number [facility] [address] [place] [address], [facility] [place] [address] * (ABNORMAL) Basic Metabolic Panel (08/31/2023 9:36 PM CDT) Pathologist [facility] Potassium, S 4.0 [...] CDT Paula Hernandez M.D. LAB BLOOD ADD-ON [place] [address] [place] [address], [facility] DTFormerly [facility] [address] [place] [address] * (ABNORMAL) CBC without Differential (08/31/2023 9:36 [...] CDT Paula Hernandez M.D. LAB BLOOD ADD-ON [facility] [address] [place] [address], [facility] DTFormerly [facility] [address] [place] [address] * FL Fluoro Less Than 1 Hour (08/31/2023 2:12 PM CDT) Narrative 152 HOS LOS RST - 08/31/2023 2:13 PM CDT This exam does not require a radiologist review or interpretation. Please refer to the patient's medical record on this date for clinical details. Mayur Alvarez M.D. IMG FLUOROSCOPY PROCEDURES Performing Organization Address City/[facility]/ZIP Co de Phone Number 152 HOS [...] in the bladder lumen. Paula Hernandez M.D. [facility] PROCEDURES * (ABNORMAL) Hemoglobin (08/31/2023 4:21 AM CDT) Hemoglobin 7.8(L) 13.2 - 16.6 g/dL 08/31/2023 4:47 AM CDT DTL Blood (Blood, Venous) 08/31/2023 4:21 AM CDT 08/31/2023 4:35 AM CDT Kimi Vieira M.D., M.S. LAB BLOO D ADD-ON [facility] [address] [place] [address], [facility] DTL [facility] [address] [place] [address] * Type and Screen (with Reflex Antibody ID) (08/30/2023 9:50 PM CDT) [facility] ABORh O Pos Not applicable 08/30/2023 10:17 PM CDT STRM Antibody Screen Negative Negative 08/30/2023 10:31 PM CDT STRM Type & Screen Expiration 09/02/2023 23:59 08/30/2023 10:17 PM CDT STRM Testing Location [facility] DEFAULT 08/30/2023 9:58 PM CDT STRM Blood (Blood, Venous) 08/30/2023 9:50 PM CDT 08/30/2023 9:58 PM CDT Shannan Correa D.O., M.H.A. LAB BLOOD BANK TEST ORDERABLES [facility] [address] [place] [address], [facility] STRM [facility] [address] [place] [address] * Lactate (08/30/2023 9:50 PM CDT) [facility] Lactate, P 1.8 0.5 - 2.2 mmol/L 08/30/2023 10:09 PM CDT [facility] Blood (Blood, Venous) 08/30/2023 9:50 PM CDT 08/30/2023 9:55 PM CDT Shannan Correa D.O., M.H.A. LAB BLOOD NON ADD-ON [facility] [address] [place], [place] [address] [address] [place] [address] * (ABNORMAL) Basic Metabolic Panel (08/30/2023 9:49 PM CDT) [facility] Potassium, P 3.6 3.6 - 5.2 [...] Correa D.O., M.H.A. LAB BLOOD ADD- ON [facility] [address] [place] [address], [facility] [address] [place] [address] * (ABNORMAL) CBC with Differential, Blood (08/30/2023 9:49 PM CDT) [facility] Hemoglobin 8.5(L) 13.2 - 16.6 g/dL [...] Correa D.O., M.H.A. LAB BLOOD ADD- ON [facility] [address] [place] [address], [facility] [address] [place] [address] [facility] [address] [place] [address] * DX Chest AP or PA and [...] CDT) Ventricular Rate ECG/Min 145 BPM MUSE GA Interval 136 ms MUSE QRSD Interval 64 ms MUSE QT Interval 260 ms MUSE QTC Interval 403 ms MUSE P [place] 44 degrees MUSE R [place] 9 degrees MUSE T Wave [place] -76 degrees MUSE 08/30/2023 7:44 PM CDT [...] Sarah Morgan RNarendra - Reason: See Provider Order)1604 (Unheld by provider - Provider: Jeffery Valdez [...] give total of 40 mEq Dissolve per motor express clerk recommendations. Do NOT chew or swallow tablet., [...] intravenous, As needed, antiXa 0.1-0.19, Starting on [facility] 09/03/23 at 1608, Intensity type: Moderate, Anti-Xa < 0.1: Loading Dose (Units/kg): 60, Anti-Xa 0.1-0.19: Loading Dose (Units/kg): 30, Anti-Xa > 0.19: Loading Dose (Units/kg): 0 Or heparin (porcine) 1,000 unit/mL injection 5,500 Units (CANCELED) 5,500 Units (rounded from 5,544 Units = 60 Units/kg ? 92.4 kg), intravenous, As needed, antiXa less than 0.1, Starting on [facility] 09/03/23 at 1608, Intensity type: Moderate, Anti-Xa [...] 2256 documented in this encounter Care Teams Industry Consultant Relationship Specialty Start Date End Date Elsewhere, Pcp PCP - General Internal Medicine 08/13/23 documented as of this encounter
--- OUTSIDE RECORDS SUMMARY | 2023-09-26 14:37 | XMS_ITS | Encounter Summary ---
Author Organization [facility] Address [address] [place] [address] Care Team Providers Care Safe And Vault Service Mechanic Name Role Phone Elsewhere, Pcp Primary Care Provider Unavailabl e Encounter Details Date Type Department Care Team (Late st Contact Info) Description 08/31/2023 12:34 PM CDT Anesthesia Event RST ROMB MAIN OR [address] [place] [phone] Joe Stoll M.D. [address] [place] [phone] Benjamin Williamson APRN, MERCHANDISING LEAD [address] [place] [phone] Anesthesia Record Procedure Summary Procedure Name Responsible [...] GAVIN 08/31/23 1402 by Benjamin Williamson APRN, MERCHANDISING LEAD Indwelling Urinary Catheter Placement Date: 08/31/23; Placement [...] Date Smoking Tobacco: Never Smokeless Tobacco: Never [facility] Utilities Answer Date Recorded In the past 12 months has [facility] [employer], gas, oil, or water [employer] threatened to shut off services in your [...] today? I have a [facility] place to live 08/13/2023 Sex and Gender Information Value Date Recorded Sex Assigned at Not on file Gender Identity Not on file Sexual Orientation Not on file documented as of this encounter OR Notes * Anesthesia Postprocedure Evaluation - Joe Stoll M.D. - 08/31/2023 5:27 PM CDT Patient: Kalen Vega Procedure Summary Date: 08/31/23 Room / Location: [place] [address] / [facility] in [place], [place] Anesthesia Start: 1234 Anesthesia Stop: 1420 [...] Hematuria [R31.9] Pre-op diagnosis: Hematuria [R31.9] Location: [place] [address] / [facility] in [place], [place] Providers: Alvarez, R. Rivero, M.D. Pertinent [...] patient / legal guardian, or through an ethyl blender; patient evaluated and approved for anesthesia / [...] CDT Procedure visit Department of Urology in [place], [place] [address] [place] [phone] Paula Hernandez M.D. [address] [place] [address] documented as of this encounter Procedures Procedure [...] mg documented in this encounter Care Teams Safe And Vault Service Mechanic Relationship Specialty Start Date End Date Elsewhere, Pcp PCP - General Internal Medicine 08/13/23 documented as of this encounter
--- OUTSIDE RECORDS SUMMARY | 2023-09-26 14:37 | XMS_ITS | Encounter Summary ---
Author Organization [facility] Address [address] [place] [address] Care Team Providers Care Firer Helper Name Role Phone Elsewhere, Pcp Primary Care Provider Unavailabl e Encounter Details Date Type Department Care Team (Late st Contact Info) Description 08/30/2023 Documentation Department of Urology in [place], [place] [address] [place] [phone] Corin Ring M.D. [address] [place] [address] Social History Tobacco Use Types Packs/Day Years Used Date Smoking Tobacco: Never Smokeless Tobacco: Never [facility] Utilities Answer Date Recorded In the past 12 months has [facility] [employer], gas, oil, or water [employer] threatened to shut off services in your [...] your living situation today? I have a [facility] place to live 08/13/2023 Sex and Gender Information Value Date Recorded Sex Assigned at Not on file Gender Identity Not on file Sexual Orientation Not on file documented as of this encounter Plan of Treatment Upcoming Encounters Date Type Department Care Team (Late st Contact Info) Description 10/14/2023 1:00 PM CDT Procedure visit Department of Urology in [place], [place] [address] [place] [address] Paula Hernandez M.D. [address] [place] [address] documented as of this encounter Visit Diagnoses Not on filedocumented in this encounter Care Teams Firer Helper Relationship Specialty Start Date End Date Elsewhere, Pcp PCP - General Internal Medicine 08/13/23 documented as of this encounter
--- OUTSIDE RECORDS SUMMARY | 2023-09-26 14:37 | XMS_ITS | Encounter Summary ---
Author Organization [facility] Address [address] [place] [address] Care Team Providers Care Host Name Role Phone Elsewhere, Pcp Primary Care Provider Unavailabl e Encounter Details Date Type Department Care Team (Latest Contact Info) Description 08/30/2023 Intake [facility] Social History Tobacco Use Types Packs/Day Years Used Date Smoking Tobacco: Never Smokeless Tobacco: Never [facility] Utilities Answer Date Recorded In the past 12 months has [facility] electric, gas, oil, or water [...] your living situation today? I have a [facility] place to live 08/13/2023 Sex and Gender Information Value Date Recorded Sex Assigned at Not on file Gender Identity Not on file Sexual Orientation Not on file documented as of this encounter Plan of Treatment Upcoming Encounters Date Type Department Care Team (Late st Contact Info) Description 10/14/2023 1:00 PM CDT Procedure visit Department of Urology in [place], [place] [address] [place] [address] Paula Hernandez M.D. 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
--- OUTSIDE RECORDS SUMMARY | 2023-09-26 14:37 | XMS_ITS | Encounter Summary ---
Author Organization [facility] Address [address] [place] [address] Care Team Providers Care Airborne Weapons Technical Manager Name Role Phone Elsewhere, Pcp Primary Care Provider Unavailabl e Encounter Details Date Type Department Care Team (Late st Contact Info) Description 09/01/2023 10:05 AM CDT Ancillary Procedure Department of Nursing Social History Tobacco Use Types Packs/Day Years Used Date Smoking Tobacco: Never Smokeless Tobacco: Never [facility] Utilities Answer Date Recorded In the past 12 months has [facility] electric, gas, oil, or water [...] your living situation today? I have a [facility] place to live 08/13/2023 Sex and Gender Information Value Date Recorded Sex Assigned at Not on file Gender Identity Not on file Sexual Orientation Not on file documented as of this encounter Plan of Treatment Upcoming Encounters Date Type Department Care Team (Late st Contact Info) Description 10/14/2023 1:00 PM CDT Procedure visit Department of Urology in [place], [place] [address] [place] [address] Paula Hernandez M.D. [address] [place] [address] documented as of this encounter Procedures Procedure [...] System IMG NON RAD IMAGI NG PROCEDURES IITN NA documented in this encounter Visit Diagnoses Not on filedocumented in this encounter Care Teams Airborne Weapons Technical Manager Relationship Specialty Start Date End Date Elsewhere, Pcp PCP - General Internal Medicine 08/13/23 documented as of this encounter
--- OUTSIDE RECORDS SUMMARY | 2023-09-26 14:37 | XMS_ITS | Encounter Summary ---
Author Organization [facility] Address [address] [place] [address] Care Team Providers Care Director Of Donor Relations Name Role Phone Elsewhere, Pcp Primary Care Provider Unavailabl e Encounter Details Date Type Department Care Team (Late st Contact Info) Description 08/31/2023 12:25 PM CDT Ancillary Procedure Department of General Surgery Social History Tobacco Use Types Packs/Day Years Used Date Smoking Tobacco: Never Smokeless Tobacco: Never [facility] Utilities Answer Date Recorded [...] your living situation today? I have a [facility] place to live 08/13/2023 Sex and Gender Information Value Date Recorded Sex Assigned at Not on file Gender Identity Not on file Sexual Orientation Not on file documented as of this encounter Plan of Treatment Upcoming Encounters Date Type Department Care Team (Late st Contact Info) Description 10/14/2023 1:00 PM CDT Procedure visit Department of Urology in [place], [place] [address] [place] [address] Paula Hernandez M.D. [address] [place] [address] documented as of this encounter Procedures Procedure [...] on filedocumented in this encounter Care Teams Director Of Donor Relations Relationship Specialty Start Date End Date Elsewhere, Pcp PCP - General Internal Medicine 08/13/23 documented as of this encounter
--- OUTSIDE RECORDS SUMMARY | 2023-09-26 14:38 | XMS_ITS | Encounter Summary ---
Author Organization [facility] Address [address] [place] [address] Care Team Providers Care Brick Off Bearer Name Role Phone Elsewhere, Pcp Primary Care Provider Unavailabl e Encounter Details Date Type Department Care Team (Latest Contact Info) Description 08/13/2023 3:42 PM CDT - 08/26/2023 4:11 PM CDT Hospital Encounter [facility], [facility], Sixth Floor [address] [place] [address] Darnell Garcia M.D. [address] [place] [phone] Boubacar Brock M.D. [address] [place] [address] Decline Functional Status [R53.81] (Primary Dx); Hematuria [R31.9] Discharge Disposition: Home or Self Care Social History Tobacco Use Types Packs/Day Years Used Date Smoking Tobacco: Never Smokeless Tobacco: Never [facility] Utilities Answer Date Recorded In [...] a [facility] to [facility] 08/13/2023 Sex [...] AM CDT DISCHARGE SUMMARY BRIEF OVERVIEW Hospital: [facility] Discharge Provider: Boubacar Brock M.D. [...] M.D.Wen, Lexiaochuan, M.D.Premo, Hayley, M.D.Botkin, Hannah, M.D. [facility] ROMB OR DISCHARGE DISPOSITION Home or Self Care [1] ACTIVE ISSUES REQUIRING FOLLOW UP OUTPATIENT FOLLOW UP Scheduled Appointments 08/26/2023 1:00 PM [facility] Radiology For appointment details refer to [...] he felt completely obstructed and presented to [place] [facility]. [place] Course Attempted Tabares insertion but bladder irrigation [...] CONSULT TO NUTRITION SUPPORT IP CONSULT TO IMMIGRATION PATROL INSPECTOR WOUND CARE CONDITION AT DISCHARGE stable Discharge [...] he felt completely obstructed and presented to [place] [facility]. [place] Course Attempted Tabares insertion but bladder irrigation [...] CDT You were discharged from the [facility] Urology Surgery - Chief A - Blue Service. Please identify this service name if you call with questions after hospitalization. * Attachments The following attachments cannot be sent through Care Everywhere. * Bacitracin (On the skin) (Latvian) * Cefdinir (By mouth) (Latvian) * Trospium (By mouth) (Latvian) documented in this encounter Medications at Time [...] [facility] - 08/26/2023 4:27 PM CDT 08/26/23 2552 Reason Therapy Missed Reason Therapy Missed Receiving other care Attempted to see patient twice today. On 1st attempt patient was receiving blood transfusion and RNwas working on completing cares with him. On 2nd attempt patient was with another provider. * Chary Diamond M.A., O.T., [facility] - 08/26/2023 10:21 AM CDT Occupational Therapy Acute Hospital Inpatient Treatment SUBJECTIVE Patient's Name: Kalen Vega Referring/Attending Provider: Boubacar Brock M.D. Reason for Referral: Occupational Therapy Evaluation and Treatment History of Present Illness: Kalen Vega is a 83 y.o. male who was admitted to [facility] in [place] on 08/13/2023 for Hematuria [R31.9]. Precautions Other Precautions: Abdominal, fall precautions, monitor tachycardia and hypertension Pain Assessment: Pain not reported during session. Subjective Comments: Agreeable to therapy session. Team Communication: The patient's status was discussed and coordination of care occurred with RN, Family/Caregiver, nurse tech Family/Caregiver Present: son and [id number] OBJECTIVE Vital Signs: Vitals not formally assessed during session. No concerns during chart review and the patient had nosigns or symptoms consistent with vital changes during therapy session. Outcome Measures: [facility] Inpatient Short Form: Putting on and taking [...] at or below 17 Clinicians answer the [facility] Inpatient Short Form based on observed patient [...] through pant leg first. - Adaptive Equipment: Title Assistant TOILETING - Assist Level: Maximal Assist - [...] (Edge of bed) - Assist Level: Modified [place] - Equipment: bed rail - Therapist Delivery: assessed, instructed, assisted - Adaptive Equipment: leg chocolate production machine operator trialed ; however, patient able to [...] extremity (stiff knee) first. Recommended adaptive equipment: Title Assistant. Toileting - Patient instructed on accurate positioning [...] maximal exertion Handouts provided: Bathroom Safety Equipment [id number], Techniques to Help You Save Energy [id number] Patient was left in bedside chair with [...] health care OBJECTIVE Patient is admitted in [place] 6C -room 121 ASSESSMENT / PLAN TOOL FILER HANDembedded software manager met with patient and son Kar to inform them of home health care acceptance for PT/OT. Patient's son Kar and [id number] will provide transportation at the time of discharge. PLAN Patient to discharge home with home health care. Home Medical Care - Admitted Since 08/13/2023 Service Provider Selected Services Address Phone Fax Patient Preferred [facility] [facility] [address] [facility] [phone] -- Financial Administration Officer: Ghazal NURSING: - Complete documentation in the Discharge Navigator including Nursing Report Info and Facility/NextLevel of Care Info - Call report and arrange for the patient's first visit - Send After Visit Summary and required packet of dismissal information with patient, including advance directive. PRIMARY SERVICE: - Please provide a non-[facility] home health order for: physical therapy and [...] be provided by family--patient's son Kar and [id number]. 3. hydrogen plant operations manager recommended reaching out to family, friends, and neighbors for assistance. 4. hydrogen plant operations manager provided information regarding the dismissal process. Damaris [...] patient #1 Hematuria Please page [facility] ([phone]) or [facility] ([phone]) Nutrition Support Service pager with questions. * Emeterio Buchanan P.T., D.P.T., [facility] - 08/25/2023 9:35 AM CDT Physical Therapy Inpatient Treatment SUBJECTIVE Patient's Name: Kalen Vega Referring/Attending Provider: Boubacar Brock M.D. Reason for Referral: Physical Therapy Evaluate and Treat History of Present Illness: Kalen Vega is a 83 y.o. male who was admitted to [facility] in [place] on 08/13/2023 for Hematuria [R31.9] Precautions Other [...] throughout session; within normal ranges. Outcome Measures: -[facility] Inpatient Short Form: AM-PAC Basic Mobility [...] - 08/25/2023 9:18 AM CDT Occupational Therapy [facility] Inpatient Treatment SUBJECTIVE Patient's Name: Kalen Vega Referring/Attending Provider: Boubacar Brock M.D. Reason for Referral: Occupational Therapy Evaluation and Treatment History of Present Illness: Kalen Vega is a 83 y.o. male who was admitted to [facility] in [place] on 08/13/2023 for Hematuria [R31.9]. Precautions Other Precautions: Abdominal, fall precautions, monitor tachycardia and hypertension Pain Assessment: Pain not reported during session. Subjective Comments: Agreeable to therapy session. Team Communication: The patient's status was discussed and coordination of care occurred with RN, PT OBJECTIVE Vital Signs: Vitals monitored throughout session; within normal ranges. Outcome Measures: [facility] Inpatient Short Form: Putting on and taking [...] at or below 17 Clinicians answer the [facility] Inpatient Short Form based on observed patient [...] including figure four technique. Recommended adaptive equipment: Title Assistant and Sock Aid. Toileting - Patient instructed [...] and modification tools as needed including leg chocolate production machine operator and/or bed adjustments. Bathroom DME: - [...] in place draining clear yellow urine I/O ([id number]): Fifty-five cc serosanguineous from the drain 1 [...] CBI. He was subsequently transferred to [facility] 08/12 for difficulty irrigating his catheter despite [...] 2.5 mg BID eliquis initiated 08/15 per [facility] med curbside recs --transition from [...] have him follow up with his local security management specialist Comorbidities: --history of DVT status post IVC [...] discussed with Dr. Venegas, chief urology resident call center operations manager. Pager during business hours: [phone] Pager after hours: [phone] * Emeterio Buchanan P.T., D.P.T., [facility] - 08/24/2023 10:46 AM CDT Physical Therapy Inpatient Treatment SUBJECTIVE Patient's Name: Kalen Vega Referring/Attending Provider: Boubacar Brock M.D. Reason for Referral: Physical Therapy Evaluate and Treat History of Present Illness: Kalen Vega is a 83 y.o. male who was admitted to [facility] in [place] on 08/13/2023 for Hematuria [R31.9] Precautions Other [...] %, and O2flow: Room air Outcome Measures: -[facility] Inpatient Short Form: AM-[facility] Basic Mobility (V.2) How much help [...] 3-5 steps with a railing?: A Lot -[facility] Basic Mobility (V.2) Raw Score: 17 AM-[facility] Basic Mobility (V.2) Standardized Score: 39.67 [...] baseline. PT Goal #2: Patient will perform yxn-wj-tnmsu transfer with modified independence and least restrictive [...] Total Kcal/day: 1370 based on 84 % Garcia[place] Non-standard additives: K 80 mEq Phos 30 [...] tomorrow. #1 Hematuria Please page [facility] ([phone]) or [facility] ([phone]) Nutrition Support Service pager with questions. * [...] catheter in place draining light smith I/O ([id number]): Forty-two cc serosanguineous from the drain 2.2 [...] CBI. He was subsequently transferred to [facility] 08/12 for difficulty irrigating his catheter despite [...] have him follow up with his local security management specialist Comorbidities: --history of DVT status post IVC [...] discussed with Dr. Venegas, chief urology resident call center operations manager. Pager during business hours: [phone] Pager after hours: [phone] * Deanne Mike L.G.S.W., M.S.W. - 08/23/2023 11:25 AM CDT SUBJECTIVE Social Work [place] [facility] [place] [place] They cannot provide halfway at this time. They can provide OT/PT [...] anticipated discharge date of 08/24/23-08/26/23. Referrals sent: [facility] [place] [facility] (out of service area) [facility] ASSESSMENT / PLAN ASSESSMENT Patient has robust family support including a son living with him. PLAN Patient desires home health care through [facility]. Social Work will continue to follow to provide support. Social Work will continue to assist with discharge needs. Shorty Sun, M.S.W. 08/23/23 * Jazmine Benítez R.N., C.W.C.N. - 08/23/2023 11:10 AM CDT [facility] Wound RN consulted to assess Kalen [...] stent and hematuria who is transferred from [place] ED with 3 days of hematuria and [...] None Unable to Measure Y *Wound Bed Closed;[place];Red Tissue Exposed None Odor None *Exudate Amount [...] 30 minutes > 30 minutes Ongoing management Nursing;Wound/cnc machine setter Partial head to toe skin assessment completed [...] nursing. They agree to the plan. The [facility] RN will sign-off. Please place a wound care consult for any new concerns. Electronically signed by: Jazmine Benítze R.N., C.W.C.N. 08/23/23 11:10 AM CDT * Emeterio Buchanan, P.T., D.P.T., [facility] - 08/23/2023 11:02 AM CDT Physical Therapy Inpatient Treatment SUBJECTIVE Patient's Name: Kalen Vega Referring/Attending Provider: Boubacar Brock M.D. Reason for Referral: Physical Therapy Evaluate and Treat History of Present Illness: Kalen Vega is a 83 y.o. male who was admitted to [facility] in [place] on 08/13/2023 for Hematuria [R31.9] Precautions Other [...] air Outcome Measures: AM-PAC Inpatient Short Form: -[facility] Basic Mobility (V.2) How much help [...] 3-5 steps with a railing?: A Lot -[facility] Basic Mobility (V.2) Raw Score: 17 -[facility] Basic Mobility (V.2) Standardized Score: 39.67 Interpretation: Based on scoring guidelines using the raw score value: Those going to home had an average score at or above 18 Those going to facility had an average score at or below 17 Clinicians answer the -[facility] Inpatient Short Form based on observed [...] baseline. PT Goal #2: Patient will perform nff-as-zysae transfer with modified independence and least restrictive [...] Total Kcal/day: 1370 based on 84 % [place] Non-standard additives: MAX chloride Thiamine 100 mg daily (D2/3) ASSESSMENT / PLAN CPN renewed per NSS recommendations; no changes for today. Potassium was low early AM at 3.1 mmol/L. Phosphorus was also low at 1.8 mg/dL; both were repleted with 30 mmol IV Kphos. Rechecking BMP, Mg, and Phos tomorrow with AM labs. Pedrito Salazar Pharm.D., R.Ph., BCPS * Jnenifer Millard M.D. - 08/23/2023 10:12 AM CDT [...] tomorrow. #1 Hematuria Please page [facility] ([phone]) or [facility] ([phone]) Nutrition Support Service pager with questions. * Ivy Hernandez O.T. - 08/23/2023 8:30 AM CDT Occupational Therapy [facility] Inpatient Treatment SUBJECTIVE Patient's Name: Kalen Vega Referring/Attending Provider: Boubacar Brock M.D. Reason for Referral: Occupational Therapy Evaluation and Treatment History of Present Illness: Kalen Vega is a 83 y.o. male who was admitted to [facility] in [place] on 08/13/2023 for Hematuria [R31.9]. Precautions Other Precautions: Abdominal, fall precautions, monitor tachycardia and hypertension Pain Assessment: Pain not reported during session. Subjective Comments: Agreeable to therapy session. Team Communication: The patient's status was discussed and coordination of care occurred with RN, PT OBJECTIVE Vital Signs: Vitals monitored throughout session; within normal ranges. Outcome Measures: [facility] Inpatient Short Form: Putting on and taking [...] at or below 17 Clinicians answer the [facility] Inpatient Short Form based on observed patient [...] catheter in place draining clear yellow I/O ([id number]): 73 cc serosanguineous from the drain Seven [...] CBI. 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 [facility] Summary: Diet: NPO, TPN Activity: Ad kong [...] discussed with Dr. Venegas, chief urology resident call center operations manager. Pager during business hours: [phone] Pager after hours: [phone] * Chary Diamond M.A., O.T., BCP - [...] just [facility] patient would like referral sent there. Social Work sent referral. OBJECTIVE Patient is anticipated to remain at [facility] for 3-5 days. Referrals sent: [facility] Health ASSESSMENT / PLAN ASSESSMENT Patient has robust family support including a son living with him. PLAN Patient desires home health care through [facility]. Social Work will continue to follow to [...] 83 y.o. male who was admitted to [facility] in [place] on 08/13/2023 for Hematuria [R31.9] Precautions Other [...] hypotension or respiratory distress. . Outcome Measures: AM-[facility] Inpatient Short Form: AM-[facility] Basic Mobility (V.2) How much help [...] 3-5 steps with a railing?: A Lot -[facility] Basic Mobility (V.2) Raw Score: 17 [facility] Basic Mobility (V.2) Standardized Score: 39.67 Interpretation: Based on scoring guidelines using the raw score value: Those going to home had an average score at or above 18 Those going to facility had an average score at or below 17 Clinicians answer the [facility] Inpatient Short Form based on observed patient [...] baseline. PT Goal #2: Patient will perform jzh-io-tkoul transfer with modified independence and least restrictive [...] Total Kcal/day: 1370 based on 84 % [place] Non-standard additives: MAX chloride Thiamine 100 mg [...] place draining light smith colored urine I/O ([id number]): CBI on slow drip 75 cc serosanguineous [...] CBI. He was subsequently transferred to [facility] 08/12 for difficulty irrigating his catheter despite [...] have him follow up with his local security management specialist Comorbidities: --history of DVT status post IVC [...] discussed with Dr. Venegas, chief urology resident call center operations manager. Pager during business hours: [phone] Pager after hours: [phone] * Qamar Jim PharmDayday, R.Ph. - 08/21/2023 [...] place draining clear smith colored urine I/O ([id number]): 1800 cc urine output 75 cc serosanguineous [...] CBI. He was subsequently transferred to [facility] 08/12 for difficulty irrigating his catheter despite [...] have him follow up with his local security management specialist Comorbidities: --history of DVT status post IVC [...] discussed with Dr. Venegas, chief urology resident call center operations manager. Pager during business hours: [phone] Pager after hours: [phone] * Lizette Harvey M.D. - 08/20/2023 8:08 [...] draining clear thin merlot colored urine I/O ([id number]): 240 cc p.o. intake 760 cc urine [...] CBI. He was subsequently transferred to [facility] 08/12 for difficulty irrigating his catheter despite [...] 2.5 mg BID eliquis initiated 08/15 per [facility] med curbside recs --transition from [...] have him follow up with his local security management specialist Comorbidities: --history of DVT status post IVC [...] questions or concerns. Pager during business hours: [phone] Pager after hours: [phone] * Qamar Jim, PharmJonahDJonah, R.Ph. - 08/20/2023 [...] Pharm.D., R.Ph. * Lisa Seaman N, O.T., [facility] - 08/19/2023 2:26 PM CDT Occupational Therapy Acute Hospital Inpatient Treatment SUBJECTIVE Patient's Name: Kalen Vega Referring/Attending Provider: Boubacar Brock M.D. Reason for Referral: Occupational Therapy Evaluation and Treatment History of Present Illness: Kalen Vega is a 83 y.o. male who was admitted to [facility] in [place] on 08/13/2023 for Hematuria [R31.9]. Precautions Other Precautions: Abdominal, fall precautions, monitor tachycardia and hypertension Pain Assessment: Pain not reported during session. Subjective Comments: Patient greeted in chair and agreeable to therapy session. Team Communication: The patient's status was discussed and coordination of care occurred with RN OBJECTIVE Vital Signs: Vitals monitored throughout session; within normal ranges. Outcome Measures: [facility] Inpatient Short Form: Putting on and taking [...] at or below 17 Clinicians answer the [facility] Inpatient Short Form based on observed patient [...] about patient's nutritional care please contact pager [phone] on weekdays or [phone] on weekends/holidays. NUTRITION ASSESSMENT: Mr. eVga is a 83 y.o. male who was [...] care everywhere) ESTIMATED NEEDS: Total Calorie Needs: 6545-5544 calories/day Method to Estimate Energy Needs: kcal/kg [...] male who was admitted to [facility] on 08/13/2023 for Hematuria [R31.9] [...] mmHg O2: 96% Room air Outcome Measures: [facility] Inpatient Short Form: -[facility] Basic Mobility (V.2) How much help [...] 3-5 steps with a railing?: A Little [facility] Basic Mobility (V.2) Raw Score: 18 [facility] Basic Mobility (V.2) Standardized Score: 41.05 Interpretation: Based on scoring guidelines using the raw score value: Those going to home had an average score at or above 18 Those going to facility had an average score at or below 17 Clinicians answer the [facility] Inpatient Short Form based on observed patient [...] Ongoing PT Goal #2: Patient will perform lzj-jx-elfoh transfer with modified independence and least restrictive [...] in place draining clear pink urine I/O ([id number]): 370 p.o. intake 1 L urine output [...] CBI. He was subsequently transferred to [facility] 08/12 for difficulty irrigating his catheter despite [...] 2.5 mg BID eliquis initiated 08/15 per [facility] med curbside recs --transition from [...] have him follow up with his local security management specialist Comorbidities: --history of DVT status post IVC [...] questions or concerns. Pager during business hours: [phone] Pager after hours: [phone] * Lisa Seaman, O.T., [facility] - 08/18/2023 11:15 AM CDT Occupational Therapy [facility] Inpatient Treatment SUBJECTIVE Patient's Name: Kalen Vega Referring/Attending Provider: Boubacar Brock M.D. Reason for Referral: Occupational Therapy Evaluation and Treatment History of Present Illness: Kalen Vega is a 83 y.o. male who was admitted to [facility] in [place] on 08/13/2023 for Hematuria [R31.9]. Precautions Other [...] pressure: 168/97 - nurse notified Outcome Measures: [facility] Inpatient Short Form: Putting on and taking [...] at or below 17 Clinicians answer the [facility] Inpatient Short Form based on observed patient [...] doffing over it last. Recommended adaptive equipment: Title Assistant and Sock Aid. Patient was left in bedside chair, with nursing/VIDEO PHOTOGRAPHER at end of session with call light [...] 83 y.o. male who was admitted to [facility] in [place] on 08/13/2023 for Hematuria [R31.9] Precautions Other [...] 3-5 steps with a railing?: A Little -[facility] Basic Mobility (V.2) Raw Score: 18 -[facility] Basic Mobility (V.2) Standardized Score: 41.05 Interpretation: Based on scoring guidelines using the raw score value: Those going to home had an average score at or above 18 Those going to facility had an average score at or below 17 Clinicians answer the [facility] Inpatient Short Form based on observed patient [...] following coordination of care occurred with the perl developer/Caregiver Present: No Patient was left in bedside [...] Progressing PT Goal #2: Patient will perform abw-as-sacav transfer with modified independence and least restrictive [...] in place draining clear pink urine I/O ([id number]): 1.2 L p.o. intake 1 L urine [...] CBI. He was subsequently transferred to [facility] 08/12 for difficulty irrigating his catheter despite [...] diet later today follow up vascular medicine [facility] Summary: Diet: currently limited clears Activity: Ad kong DVT PPX: heparin drip GI PPX: Pantoprazole Bowel Regimen:N/A IVF: none Abx/Microbiology: Ceftriaxone Pain Control: Tylenol, oxycodone 08/18. Scheduled trospium Home Meds Resumed: Metoprolol, tamsulosin, rosuvastatin Held Home Meds: None Consults: None Paula Hernandez M.D. 08/18/2023 6:02 AM CDT Please page the Urology Chief Service with questions or concerns. Pager during business hours: [phone] Pager after hours: [phone] * Tayler Greenwood M.D., M.Ed. - 08/17/2023 [...] the patient follow up with his primary security management specialist at discharge we will which we will [...] home enzalutamide today (own supply). Marie Karyn Casisdy, R.Ph. INPATIENT MED LIST: acetaminophen, 650 mg, [...] Lactated Ringer's * Lisa Seaman, O.T., [facility] - 08/17/2023 10:47 AM CDT Occupational Therapy [facility] Inpatient Treatment SUBJECTIVE Patient's Name: Kalen Vega Referring/Attending Provider: Boubacar Brock M.D. Reason for Referral: Occupational Therapy Evaluation and Treatment History of Present Illness: Kalen Vega is a 83 y.o. male who was admitted to [facility] in [place] on 08/13/2023 for Hematuria [R31.9]. Precautions Other [...] at or below 17 Clinicians answer the [facility] Inpatient Short Form based on observed patient [...] in place draining clear pink urine I/O ([id number]): NG tube 200 cc Two hundred sixty-five [...] CBI. He was subsequently transferred to [facility] 08/12 for difficulty irrigating his catheter despite [...] questions or concerns. Pager during business hours: [phone] Pager after hours: [phone] * Audi De Luna P.T., D.P.T. - [...] in place draining clear pink urine I/O ([id number]): NG tube 200 cc Two hundred sixty-five [...] CBI. He was subsequently transferred to [facility] 08/12 for difficulty irrigating his catheter despite [...] will discuss with Cardiology need for both [facility] and [facility] Summary: Diet: NPO Activity: Ad kong DVT PPX: Ashley heparin GI PPX: Pantoprazole Bowel Regimen:N/A IVF: LR 75 Abx/Microbiology: Ceftriaxone Pain Control: Tylenol, oxycodone 08/18. Scheduled trospium Home Meds Resumed: Metoprolol, tamsulosin, rosuvastatin Held Home Meds: None Consults: None Signed by: Paula Hernandez M.D. 08/16/2023 6:02 AM CDT Please page the Urology Chief Service with questions or concerns. Pager during business hours: [phone] Pager after hours: [phone] * Paula Hernandez M.D. - 08/15/2023 9:09 AM CDT PROGRESS NOTE: No events. AFVSS. Pain controlled. No flatus. No further emesis overnight. Abdomen more distended than yesterday but remained soft, tender to deep palpation only, no rebound. Twenty-four Dutch Alcock three-way catheter remains off CBI, draining [...] CBI. He was subsequently transferred to [facility] 08/12 for difficulty irrigating his catheter despite [...] risks associated with surgery and anesthesia including NE, stroke, and VTE were also discussed. Finally, [...] above was discussed with Dr. Brock, urology development consultant on-call who is in agreement with the lisa outlined. Electronically signed by: Paula Hernandez M.D. 08/15/23 9:09 AM CDT Urology chief * Irvin Franoc, Pharm.D., R.Ph. - 08/14/2023 12:16 PM CDT [...] Family to bring his home enzalutamide from [place] Irvin Franco Pharm.D., R.Ph. * Jakob De Paz M.D. - 08/14/2023 11:34 AM CDT PROGRESS NOTE: No events. AFVSS. Pain controlled. No flatus. Nauseous and had 2 episodes of emesis. Abdomen more distended than yesterday but remained soft, tender to deep palpation only, no rebound. Twenty-four Dutch Alcock three-way catheter remains off CBI, draining [...] CBI. He was subsequently transferred to [facility] 08/12 for difficulty irrigating his catheter despite [...] above was discussed with Dr. Brock, urology development consultant on-call who is in agreement with [...] Patient discussed with Dr. Sylvester. Page [id number] [id number] Carlos Alberto Henson M.D. PGY-1 CCM 3 [...] who have asked we place a 24 Dutch 3-way urinary catheter pending evaluation. We will [...] stent and hematuria who is transferred from [facility] ED with 3 days of hematuria and [...] him to present to local hospital in [place]. OSH Course: His hemoglobin was in the [...] Insecurity: No Food Insecurity (02/16/2022) Received from [facility], [facility] Food Insecurity Worried About Running Out of Food in the Last Year: 1 Transportation Needs: No Transportation Needs (02/16/2022) [facility] Transportation Needs Lack of Transportation (Medical): 1 Housing Stability: Low Risk (02/16/2022) Received from [facility], [facility] Housing Stability Unable to Pay for [...] Dr. Sylvester and Dr. Rodriguez. Page CCM3 [id number] Carlos Alberto Henson M.D. PGY-1 CCM 3 [...] As expected PRIMARY PROCEDURALIST FAY Cerna MD [phone] ASSISTANTS none COMPLICATIONS None. DRAINS None. IMPLANTS [...] peripheral vein targets. Ultrasound used for assessment: [employer] [email or web address] Fit Provider contacted (include name): Uro Surg [...] STENT EXCHANGE; Surgeon: Boubacar Brock M.D.; Location: [facility] ROMB OR FAMILY HISTORY No family history [...] 14 -- AST U/L 25 -- Radiology: @[id number]@ Swallow Assessment: No data to display ASSESSMENT / PLAN #1 Hematuria ASSESSMENT Currently we are asked to visit with Mr. Vega for consideration of parenteral nutrition. Nutrition Needs: Height: 180 cm Admission Weight: 91.2 kg (08/13/2023) Current Weight: 90.2 kg BMI (Calculated): 27.8 kg/m?? Total Calorie Needs: 0554-0933 calories/day Method to Estimate Energy Needs: Garcia-[place]rapaho ( ) Weight Used for Equation Calculations: [...] on electrolytes Please call NSS pager at [phone] at [facility] or [phone] at [facility] with any additional questions. * Gilbert [...] values in this interval not displayed. Radiology: @[id number]@ Swallow Assessment: No data to display ASSESSMENT / PLAN #1 Hematuria ASSESSMENT Currently we are asked to visit with Mr. Vega for consideration of parenteral nutrition. Nutrition Needs: Height: 180 cm Admission Weight: 91.2 kg (08/13/2023) Current Weight: 90.2 kg BMI (Calculated): 27.8 kg/m?? Total Calorie Needs: 7314-0625 calories/day Method to Estimate Energy Needs: kcal/kg [...] electrolytes Please call NSS pager at [phone] at [facility] or [phone] at [facility] with any additional questions. BILLING/CODING Total [...] stent along with other stents and apparently security management specialist in the past I recommended indefinite dual [...] 20 mL/hr, intravenous, Continuous, Frieda Garner APRN, NIB ADJUSTER, Last Rate: 20 mL/hr at 08/15/23 1459, [...] but he can discuss this with his security management specialist at home. We need to balance transfusion needs for continued bleedingand risk of recurrent NE if not on Plavix-coronary stents were 6 [...] 83 y.o. male who was admitted to [facility] in [place] on 08/13/2023 for Hematuria [R31.9]. Relevant Medical History: Kalen Vega is a 83 y.o. 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 [...] heels well perfused and intact. Outcome Measures: [facility] Inpatient Short Form: -[facility] Basic Mobility (V.2) How much help [...] 3-5 steps with a railing?: A Lot -[facility] Basic Mobility (V.2) Raw Score: 17 -[facility] Basic Mobility (V.2) Standardized Score: 39.67 Interpretation: Based on scoring guidelines using the raw score value: Those going to home had an average score at or above 18 Those going to facility had an average score at or below 17 Clinicians answer the [facility] Inpatient Short Form based on observed patient [...] following coordination of care occurred with the perl developer/Caregiver Present: Favio Alfaro Patient was left in [...] 83 y.o. male who was admitted to [facility] in [place] on 08/13/2023 for Hematuria with cystotomy and [...] Min assist for mobility. Required assist for kmh-ch-qdauy for force generation and is generally standby [...] Ongoing PT Goal #2: Patient will perform hoq-me-zogke transfer with modified independence and least restrictive [...] - 08/16/2023 10:01 AM CDT Occupational Therapy [facility] Inpatient Evaluation/Treatment SUBJECTIVE Patient's Name: Kalen Vega Referring/Attending Provider: Boubacar Brock M.D. Reason for Referral: Occupational Therapy Evaluation and Treatment PERTINENT MEDICAL / SURGICAL HISTORY: Kalen Vega has no past medical history on file. Kalen Vega has no past surgical history on file. History of Present Illness: Kalen Vega is a 83 y.o. male who was admitted to [facility] in [place] on 08/13/2023 for Hematuria [R31.9]. Relevant Medical [...] with RN, PT Family/Caregiver Present: Son and wlwodoop-ca-jrs. Home Living and Equipment: Lives with: Spouse/Significant [...] walker, Single point cane Adaptive Equipment Owned: Title Assistant, Long Handled Shoe Horn Other DME Owned: Regular flat bed Prior Level of Function and Mobility: Basic Activities of Daily Living: Independent Instrumental Activities of Daily Living: Required Assistance: Laundry son assists with laundry and cooking Functional Mobility: Independent Driving: Yes Occupational Role: Retired Leisure Interests: watch movies, plays [employer] train, meets friends for breakfast. Patient/Caregiver Goals: [...] Wears glasses all the time Outcome Measures: AM-[facility] Inpatient Short Form: Putting on and [...] at or below 17 Clinicians answer the AM-[facility] Inpatient Short Form based on observed [...] ability to complete toileting including clothing management, jnaiya-cares and transfer with supervision/set up assistance to [...] all are a great support. 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 Patient expressed understanding and was [...] engaged in conversation with his family when delinquency prevention social worker entered the room. He was [...] locally at approximately 3:00 a.m. a 22 Dutch three-way catheter was placed and CBI wasinitiated. Unfortunately he clotted off the catheter multiple times despite manual irrigations, started to develop hypotension and tachycardia and [facility] He relays the [...] non-distended, non-peritonitic Extremities: No edema : 22 Dutch three-way Tabares catheter draining a minimal amount [...] urinary retention Given his non draining 22 Dutch three-way catheter the Urology techs and I subsequently exchanged this for a 24 Dutch three-way Alcock in the usual sterile fashion. [...] to follow [place] [phone] with questions or concerns Sixto Cain M.D. [...] peripheral vein targets. Ultrasound used for assessment: [employer] Fit Provider contacted (include name): Uro Surg [...] Transfer Note Patient transferred to: [facility] Room: [facility] Accompanied by: JAMEL Garcia Report called? YES [...] signs? YES * Sixto Teague R.R.T., L.R.T., PRIME MINISTER-ACCS - 08/14/2023 7:00 AM CDT Patient is [...] the last 24hours. Sixto Teague R.R.T., Kamala.R.TJonah, PRIME MINISTER-ACCS 08/14/23 7:00 AM CDT * Radha Crespo [...] Bladder Spontaneous Post-op Diagnosis Rupture Bladder Spontaneous Safety Physician A front office medical assistant actively participated and was necessary for [...] the supine flexed position. His existing 24 Dutch three-way Tabares catheter was noted to be [...] additional tissue for additional coverage. A 24 Dutch three-way catheter was placed with 15 cc in the balloon. This irrigated to light clear pink. A 15 Dutch YARELI drain wasplaced into the pelvis exiting left lower quadrant. The fascia was closed with interrupted and lajmmq-zw-ojgor 0 PDS. Fat was approximated using 3-0 [...] RN, CPN, CCDS, CCS, CRC Clinical Documentation [employer] Delivery Driver Query created by: ELMER Barker, RN, [...] stent and hematuria who is transferred from [place] ED with 3 days of hematuria & [...] RN, CPN, CCDS, CCS, CRC Clinical Documentation [employer] Delivery Driver Query created by: ELMER Barker, RN, [...] he felt completely obstructed and presented to [place] ED. [place] Course Attempted Tabares insertion but bladder irrigation [...] of Urology in [place], [place] [address] [place] [address] Paula Hernandez M.D. [address] [place] [address] Pending Results Name Type Priority Associated Diagnoses [...] 08/26/2023 7:16 AM CDT STRM Testing Location [place] DEFAULT 08/26/2023 6:57 AM CDT STRM Blood (Blood, Venous) 08/26/2023 6:50 AM CDT 08/26/2023 6:57 AM CDT Narrative Authorizing Provider Result Abdifatah Hernandez M.D. LAB BLOOD BANK TEST ORDERABLES [facility] [address] [place] [address], [facility] STRM [facility] [address] [place] [address] * (ABNORMAL) CBC without Differential (08/26/2023 3:20 AM CDT) Pathologist [facility] Hemoglobin 7.4(L) 13.2 - 16.6 g/dL 08/26/2023 [...] CDT Corin Ring M.D. LAB BLOOD ADD-ON [facility] [address] [place] [address], [facility] [address] [place] [address] * Magnesium (08/26/2023 3:20 AM CDT) Pathologist [facility] Magnesium, S 2.1 1.7 - 2.3 mg/dL 08/26/2023 4:04 AM CDT DTL Blood (Blood, Venous) 08/26/2023 3:20 AM CDT 08/26/2023 3:50 AM CDT Boubacar Brock M.D. LAB BLOOD ADD-ON [facility] [address] [place] [address], [facility] DTL [facility] [address] [place] [address] * (ABNORMAL) Renal Function Panel (08/26/2023 3:20 [...] CDT Boubacar Brock M.D. LAB BLOOD ADD-ON [facility] [address] [place] [address], [facility] [address] [place] [address] * Heparin Anti-Xa Assay (08/26/2023 3:20 AM [...] Hoyt M.D. LAB BLOOD NON ADD -ON [facility] [address] [place] [address], [facility] [address] [place] [address] * (ABNORMAL) CBC without Differential (08/25/2023 3:24 [...] CDT Corin Ring M.D. LAB BLOOD ADD-ON [facility] [address] [place] [address], [facility] [address] [place] [address] * (ABNORMAL) Renal Function Panel (08/25/2023 3:24 AM CDT) Pathologist [facility] Potassium, S 4.1 3.6 - 5.2 mmol/L [...] M.D. LAB BLOOD ADD-ON Performing Organization Address City/[facility]/ZIP Co de Phone Number [facility] [address] [place], [place] [address] [place] [address] * Magnesium (08/25/2023 3:24 AM CDT) Pathologist [facility] Magnesium, S 2.2 1.7 - 2.3 mg/dL 08/25/2023 4:36 AM CDT DTL Blood (Blood, Venous) 08/25/2023 3:24 AM CDT 08/25/2023 4:19 AM CDT Boubacar Brock M.D. LAB BLOOD ADD-ON Performing Organization Address City/[facility] Co de Phone Number [facility] [address] [place] [address], [address] [address] * Heparin Anti-Xa Assay (08/25/2023 3:24 AM [...] Boubacar Brock M.D. LAB BLOOD NON ADD-ON [facility] [address] [place] [address], [facility] [address] [place] [address] * (ABNORMAL) CBC without Differential (08/24/2023 5:28 AM CDT) Pathologist [facility] Hemoglobin 8.1(L) 13.2 - 16.6 g/dL 08/24/2023 [...] M.D. LAB BLOOD ADD-ON Performing Organization Address City/[facility]/ZIP Co de Phone Number [facility] [address] [place] [address] * Magnesium (08/24/2023 5:28 AM CDT) Magnesium, S 2.3 1.7 - 2.3 mg/dL 08/24/2023 6:19 AM CDT DTL Blood (Blood, Venous) 08/24/2023 5:28 AM CDT 08/24/2023 6:00 AM CDT Boubacar Brock M.D. LAB BLOOD ADD-ON Performing Organization Address [facility] Co de Phone Number [facility] [address] [place] [address] * (ABNORMAL) Renal Function Panel (08/24/2023 5:28 [...] M.D. LAB BLOOD ADD-ON Performing Organization Address [facility] Co de Phone Number [address] [address], [facility] [place] [address] * Heparin Anti-Xa Assay (08/24/2023 5:28 AM [...] LAB BLOOD NON ADD-ON Performing Organization Address City/[facility]/ZIP Co de Phone Number [facility] [address] [place], [place] [phone] [place] [address] [address] [place] [address] * (ABNORMAL) Potassium (08/23/2023 9:58 PM CDT) Potassium, S 3.5(L) 3.6 - 5.2 mmol/L 08/23/2023 10:45 PM CDT DT Blood (Blood, Venous) 08/23/2023 9:58 PM CDT 08/23/2023 10:30 PM CDT Boubacar Brock M.D. LAB BLOOD ADD-ON Performing Organization Address City/[facility]/ZIP Co de Phone Number [facility] [address] [place], [place] [phone] [place] [address] [address] [place] [address] * (ABNORMAL) Phosphorus Inorganic (08/23/2023 9:58 PM CDT) Pathologist [facility] Phosphorus (Inorganic), S 2.1(L) 2.5 - 4.5 mg/dL 08/23/2023 10:45 PM CDT DT Blood (Blood, Venous) 08/23/2023 9:58 PM CDT 08/23/2023 10:30 PM CDT Paula Hernandez M.D. LAB BLOOD ADD-ON Performing Organization Address City/[facility]/ZIP Co de Phone Number [facility] [address] [place], [place] [phone] [place] [address] [address] [place] [address] * Heparin Anti-Xa Assay (08/23/2023 11:37 AM CDT) Pathologist [facility] Heparin Anti-Xa, P 0.51 IU/mL 2023 12:42 [...] Boubacar Brock M.D. LAB BLOOD NON ADD-ON [address] [address], [facility] [address] [address] * (ABNORMAL) CBC without Differential (08/23/2023 3:42 AM CDT) [facility] Hemoglobin 8.3(L) 13.2 - 16.6 g/dL 08/23/2023 [...] CDT Corin Ring M.D. LAB BLOOD ADD-ON [facility] [address] [place], [place] [phone] [place] [address] [address] [place] [address] * Triglycerides (08/23/2023 3:42 AM CDT) Triglycerides [...] M.D. LAB BLOOD ADD-ON Performing Organization Address City/[facility] Co de Phone Number [facility] [address] [place], [place] [address] [place] [address] [address] [place] [address] * Magnesium (08/23/2023 3:42 AM CDT) Magnesium, S 2.2 1.7 - 2.3 mg/dL 08/23/2023 4:50 AM CDT DTL Blood (Blood, Venous) 08/23/2023 3:42 AM CDT 08/23/2023 4:19 AM CDT Boubacar Brock M.D. LAB BLOOD ADD-ON [facility] [address] [place], [place] [id number] [place] [address] [address] [place] [address] * (ABNORMAL) Renal Function Panel (08/23/2023 3:42 [...] CDT Boubacar Brock M.D. LAB BLOOD ADD-ON [facility] [address] [place] [address], [facility] [address] [place] [address] * Heparin Anti-Xa Assay (08/23/2023 3:41 AM [...] LAB BLOOD NON ADD-ON Performing Organization Address City/[facility]/ZIP Co de Phone Number [facility] [address] [place] [address], [facility] [address] [place] [address] * Glucose, POCT (08/22/2023 11:38 PM CDT) Pathologist [facility] Glucose, POCT, B 117 70 - 140 mg/dL 08/23/2023 1:06 AM CDT PCLX Site Capillary 08/23/2023 1:06 AM CDT PCLX Last Intake NPO 08/23/2023 1:06 AM CDT PCLX Blood 08/22/2023 11:3 8 PM CDT 08/23/2023 1:06 AM CDT Unknown Provider LAB POCT ORDERABLES- MANUAL Performing Organization Address City/[facility]/ZIP Co de Phone Number POC [facility] [address] [place] [address], [facility] PCLX [facility] POC [address] [place] [address] * Heparin Anti-Xa Assay (08/22/2023 10:14 PM [...] Boubacar Brock M.D. LAB BLOOD NON ADD-ON [address] [address], [facility] [place] [place] [address] * CT Abdomen Pelvis without IV Contrast [...] Anti-Xa Assay (08/22/2023 3:43 PM CDT) Pathologist [facility] Heparin Anti-Xa, P 0.35 IU/mL 2023 4:46 [...] Boubacar Brock M.D. [place] [address], [facility] [place] [address] * Creatinine, Body Fluid (08/22/2023 3:30 PM CDT) [facility] Creatinine, BF 1.2 See Comment mg/dL 08/22/2023 [...] transport rates. All other fluids refer to [email or web address].com for further interpretive information. This test has been modified from the supervisor dock's instructions. Its performance characteristics were determined by [facility] in a manner consistent with CLIA requirements. This test has not been cleared or approved by the U.S. Food and Drug Administration. Fluid Type, Creatinine Fluid, Abdomen 08/22/2023 3:52 PM CDT DTL Fluid (Abdomen) 08/22/2023 3 :30 PM CDT 08/22/2023 6:36 PM CDT Corin Ring M.D. LAB BODY FLUIDS AND STOOLS ORDERABLES [facility] [address] [place] [address], [facility] [address] [place] [address] * Transfuse Red Blood Cells : (08/22/2023 [...] of a right IJ vein single-lumen 4 Dutch tunneled PowerPICC ready for immediate use. NR [...] advanced into the IVC and a 4 Dutch dilator advanced over the wire and attached to a one-way stopcock. A suitable exit site in the right anterior chest was anesthetized and a small incision made. A 4 Dutch single-lumen PowerPICC was then tunneled from the [...] Wireadvanced into the IVC and a 4 Dutch dilator advanced over the wire andattached to a one-way stopcock. A suitable exit site in the right anteriorchest was anesthetized and a small incision made. A 4 Dutch single-lumen PowerPICC was then tunneled fromthe skin [...] of a right IJ vein single-lumen 4 Dutch tunneled PowerPICCready for immediate use. NR Kimi [...] M.D. LAB BLOOD ADD-ON Performing Organization Address City/[facility]/ZIP Co de Phone Number [facility] [address] [place] [address], [facility] STMA [facility] [address] [place] [address] * Type and Screen (with Reflex Antibody [...] BANK T EST ORDERABLES Performing Organization Address [facility] Co de Phone Number [facility] [address] [place] [address], [facility] [facility] [address] [place] [address] * (ABNORMAL) Comprehensive Metabolic Panel (08/22/2023 2:40 [...] CDT Latisha Whitehead M.D. LAB BLOOD ADD-ON [facility] [address] [place] [address], [facility] 200 [place] [address] * Heparin Anti-Xa Assay (08/22/2023 2:40 AM [...] Whitehead M.D. LAB BLOOD NON AD D-ON [facility] [address] [place] [address], [facility] 200 [place] [address] * (ABNORMAL) APTT (Activated Partial Thromboplastin Time) (08/22/2023 2:40 AM CDT) Activated Partial Thrombopl Time, P 64(H) 25 - 37 sec 08/22/2023 3:12 AM CDT STMA Blood (Blood, Venous) 08/22/2023 2:40 AM CDT 08/22/2023 3:01 AM CDT Latisha Whitehead M.D. LAB BLOOD ADD-ON [facility] 200 [place] [address], [facility] [address] [place] [address] * Triglycerides (08/21/2023 7:32 AM CDT) Triglycerides [...] LAB BLOOD ADD-O N Performing Organization Address City/[facility]/ZIP Co de Phone Number [facility] 200 [place], [place] [address] 200 [place] [address] * Phosphorus Inorganic (08/21/2023 7:32 AM CDT) Pathologist [facility] Phosphorus (Inorganic), S 2.6 2.5 - 4.5 mg/dL 08/21/2023 9:03 AM CDT DTL Blood (Blood, Venous) 08/21/2023 7:32 AM CDT 08/21/2023 8:38 AM CDT Liztete Harvey M.D. LAB BLOOD ADD-O N Performing Organization Address City/[facility]/ZIP Co de Phone Number [facility] [address] [place], [place] [address] [place] [address] 200 [place] [address] * Magnesium (08/21/2023 7:32 AM CDT) Magnesium, S 2.3 1.7 - 2.3 mg/dL 08/21/2023 9:03 AM CDT DTL Blood (Blood, Venous) 08/21/2023 7:32 AM CDT 08/21/2023 8:38 AM CDT Lizette Harvey M.D. LAB BLOOD ADD-O N [facility] [address] [place] [address], [facility] DTL [facility] [address] [place] [address] * (ABNORMAL) Basic Metabolic Panel (08/21/2023 7:32 [...] LAB BLOOD ADD-O N Performing Organization Address City/[facility] Co de Phone Number [facility] [address] [place] [address], [facility] 200 [place] [address] * (ABNORMAL) CBC without Differential (08/21/2023 7:32 AM CDT) Pathologist [facility] Hemoglobin 8.0(L) 13.2 - 16.6 g/dL 08/21/2023 [...] LAB BLOOD ADD-O N Performing Organization Address City/[facility]/ZIP Co de Phone Number [facility] [address] [place] [address], [facility] [address] [place] [address] * Heparin Anti-Xa Assay (08/21/2023 7:32 AM CDT) Pathologist [facility] Heparin Anti-Xa, P 0.49 IU/mL 2023 8:31 [...] LAB BLOOD NON ADD-ON Performing Organization Address City/[facility]/ZIP Co de Phone Number [facility] [address] [place] [address] * (ABNORMAL) APTT (Activated Partial Thromboplastin Time) (08/21/2023 7:32 AM CDT) [facility] Activated Partial Thrombopl Time, P 49(H) 25 - 37 sec 08/21/2023 8:31 AM CDT DT Blood (Blood, Venous) 08/21/2023 7:32 AM CDT 08/21/2023 8:06 AM CDT Boubacar Brock M.D. LAB BLOOD ADD-ON [facility] 200 [place] [address] * Place peripherally inserted central catheter (PICC) [...] atrophic right kidney. Lizette Harvey M.D. [facility] CT PROCEDUR ES * (ABNORMAL) Basic Metabolic Panel (08/20/2023 3:19 AM CDT) [facility] Potassium, S 3.7 3.6 - 5.2 mmol/L [...] CDT Paula Hernandez M.D. LAB BLOOD ADD-ON [facility] [address] [place] [address], [facility] [address] [place] [address] * (ABNORMAL) CBC without Differential (08/20/2023 3:19 [...] M.D. LAB BLOOD ADD-ON Performing Organization Address City/[facility]/ZIP Co de Phone Number [facility] [address] [place] [address] * (ABNORMAL) APTT (Activated Partial Thromboplastin Time) (08/20/2023 3:19 AM CDT) Activated Partial Thrombopl Time, P 52(H) 25 - 37 sec 08/20/2023 4:33 AM CDT DTL Blood (Blood, Venous) 08/20/2023 3:19 AM CDT 08/20/2023 4:10 AM CDT Boubacar Brock M.D. LAB BLOOD ADD-ON Performing Organization Address City/[facility] Co de Phone Number [facility] [address] [place] [address] * (ABNORMAL) APTT (Activated Partial Thromboplastin Time) (08/19/2023 10:57 AM CDT) Pathologist [facility] Activated Partial Thrombopl Time, P 54(H) 25 - 37 sec 08/19/2023 11:44 AM CDT DTL Blood (Blood, Venous) 08/19/2023 10:57 AM CDT 08/19/2023 11:26 AM CDT Boubacar Brock M.D. LAB BLOOD ADD-ON Performing Organization Address City/[facility]/ZIP Co de Phone Number [facility] [address] 200 [place] [address] * (ABNORMAL) APTT (Activated Partial Thromboplastin Time) (08/19/2023 4:51 AM CDT) Activated Partial Thrombopl Time, P 59(H) 25 - 37 sec 08/19/2023 5:53 AM CDT DTL Blood (Blood, Venous) 08/19/2023 4:51 AM CDT 08/19/2023 5:36 AM CDT Boubacar Brock M.D. LAB BLOOD ADD-ON Performing Organization Address City/[facility]/ZIP Co de Phone Number [facility] [address] [place], [place] [address] [place] [address] 200 [place] [address] * (ABNORMAL) APTT (Activated Partial Thromboplastin Time) (08/18/2023 10:03 PM CDT) Activated Partial Thrombopl Time, P 63(H) 25 - 37 sec 08/18/2023 10:41 PM CDT DTL Blood (Blood, Venous) 08/18/2023 10:03 PM CDT 08/18/2023 10:19 PM CDT Boubacar Brock M.D. LAB BLOOD ADD-ON Performing Organization Address City/[facility] Co de Phone Number [facility] [address] [place], [place] [address] 200 [place] [address] * (ABNORMAL) APTT (Activated Partial Thromboplastin Time) (08/18/2023 2:50 PM CDT) Activated Partial Thrombopl Time, P 64(H) 25 - 37 sec 08/18/2023 3:25 PM CDT DTL Blood (Blood, Venous) 08/18/2023 2:50 PM CDT 08/18/2023 3:07 PM CDT Boubacar Brock M.D. LAB BLOOD ADD-ON [facility] [address] [place], [place] [address] [address] [place] [address] * (ABNORMAL) APTT (Activated Partial Thromboplastin Time) (08/18/2023 6:42 AM CDT) Activated Partial Thrombopl Time, P 61(H) 25 - 37 sec 08/18/2023 7:28 AM CDT DTL Blood (Blood, Venous) 08/18/2023 6:42 AM CDT 08/18/2023 7:04 AM CDT Boubacar Brock M.D. LAB BLOOD ADD-ON [facility] 200 [place] [address], [facility] 200 [place] [address] * (ABNORMAL) APTT (Activated Partial Thromboplastin Time) (08/17/2023 11:04 PM CDT) [facility] Activated Partial Thrombopl Time, P 40(H) 25 - 37 sec 08/17/2023 11:46 PM CDT DTL Blood (Blood, Venous) 08/17/2023 11:04 PM CDT 08/17/2023 11:31 PM CDT Boubacar Brock M.D. LAB BLOOD ADD-ON [facility] [address] [place] [address], [facility] [address] [place] [address] * US Lower Extremity Veins Bilateral (08/17/2023 [...] and management can be found on the [employer] site. Link [email or web address]/topic/clinical-answers/[email or web address]/cpm-204 [email or web address] Findings discussed with ??Tayler Greenwood, ?? ([id number]) on 08/17/2023 7:11 PM. Procedure Note Jj [...] thrombosis and management can be found on the[employer] site. [email or web address]/clinical-[email or web address]/[email or web address]/cpm [email or web address] 1725 Findings discussed with Tayler Greenwood MD ([id number]) on 08/17/2023 7:11 PM. IMPRESSION: 1. Aging, [...] CDT Paula Hernandez M.D. LAB BLOOD ADD-ON [facility] [address] [place] [address], [facility] [address] [facility] [place] [address] * ECG 12 Lead (08/16/2023 9:43 PM CDT) Pathologist [facility] Ventricular Rate ECG/Min 134 BPM MUSE SC Interval 136 ms MUSE QRSD Interval 76 ms MUSE QT Interval 298 ms MUSE QTC Interval 445 ms MUSE P Choteau 29 degrees MUSE R [place] -6 degrees MUSE T Wave [place] 21 degrees MUSE 08/16/2023 9:43 PM CDT [...] CBC without Differential (08/16/2023 9:40 PM CDT) [facility] Hemoglobin 8.8(L) 13.2 - 16.6 g/dL 08/16/2023 [...] CDT Geneva Azar M.D. LAB BLOOD ADD-ON [facility] [address] [place] [address], [facility] [address] [place] [address] * (ABNORMAL) Basic Metabolic Panel (08/16/2023 9:40 [...] CDT Geneva Azar M.D. LAB BLOOD ADD-ON [facility] [address] [place] [address], [facility] DTL [facility] [address] [place] [address] * Transfuse Red Blood Cells : (08/16/2023 12:04 PM CDT) Corin Ring M.D. BLOOD TRANSFUSION OR DERABLES * Transfuse Red Blood Cells : , 1 Units (08/16/2023 12:04 PM CDT) Corin Ring M.D. BLOOD TRANSFUSION OR DERABLES * (ABNORMAL) Basic Metabolic Panel (08/16/2023 3:10 AM CDT) Pathologist [facility] Potassium, S 4.2 3.6 - 5.2 mmol/L [...] M.D. LAB BLOOD ADD-ON Performing Organization Address [facility]/ZIP Co de Phone Number [facility] [address] DTL [facility] 200 [place] [address] * (ABNORMAL) CBC without Differential (08/16/2023 3:10 [...] CDT Paula Hernandez M.D. LAB BLOOD ADD-ON [facility] [address] [place] [address], [facility] DTL [facility] 200 [place] [address] * (ABNORMAL) CBC with Differential, Blood (08/15/2023 3:58 PM CDT) [facility] Signature Hemoglobin 9.0(L) 13.2 - 16.6 [...] Carlos Alberto Henson M.D. LAB BLOOD ADD-ON [facility] 200 [place] [address], [facility] DTL [facility] [address] [place] [address] [facility] 200 [place] [address] * DX Abdomen 1 View (08/15/2023 1:19 [...] 37.0 deg C 08/15/2023 12:04 PM CDT [facility] Blood 08/15/2023 11:5 6 AM CDT 08/15/2023 12:03 PM CDT Rae Gonzalez DEHORNER, NIB ADJUSTER, DNAP LAB BLOO D NON ADD-ON [facility] [address] [place] [address], [facility] [address] [place] [address] * Lactate, B - Intra-op (08/15/2023 11:56 AM CDT) Lactate, B 1.1 0.5 - 2.2 mmol/L 08/15/2023 12:06 PM CDT [facility] Blood (Blood, Venous) 08/15/2023 11:56 AM CDT 08/15/2023 12:03 PM CDT Hayde Song M.D. LAB BLOOD NON ADD-O N [facility] [address] [place] [address] * (ABNORMAL) Glucose, Whole Blood (08/15/2023 11:56 AM CDT) Glucose 144(H) 70 - 140 mg/dL 08/15/2023 12:06 PM CDT [facility] Blood (Blood, Arterial Line) 08/15/2023 11:56 AM CDT 08/15/2023 12:03 PM CDT Hayde Song M.D. LAB BLOOD ADD-ON Performing Organization Address City/[facility]/ZIP Co de Phone Number [facility] [address] [place], [place] [address] [place] [address] [address] [place] [address] * Potassium, Blood (08/15/2023 11:56 AM CDT) Potassium, B 4.3 3.6 - 5.2 mmol/L 08/15/2023 12:07 PM CDT [facility] Blood (Blood, Arterial Line) 08/15/2023 11:56 AM CDT 08/15/2023 12:03 PM CDT Hayde Song M.D. LAB BLOOD NON ADD-O N [facility] [address] [place], [place] [address] [place] [address] 200 [place] [address] * Sodium, B (08/15/2023 11:56 AM CDT) Sodium, B 135 135 - 145 mmol/L 08/15/2023 12:06 PM CDT [facility] Blood (Blood, Arterial Line) 08/15/2023 11:56 AM CDT 08/15/2023 12:03 PM CDT Hayde Song M.D. LAB BLOOD NON ADD-O N Performing Organization Address City/[facility]/ZIP Co de Phone Number [facility] [address] [place], [place] [address] [place] [address] 200 [place] [address] * (ABNORMAL) Calcium, Ionized (08/15/2023 11:56 AM CDT) Calcium, Ionized, B 4.53(L) 4.65 - 5.30 mg/dL 08/15/2023 12:07 PM CDT [facility] Blood (Blood, Arterial Line) 08/15/2023 11:56 AM CDT 08/15/2023 12:03 PM CDT Hayde Song M.D. LAB BLOOD NON ADD-O N [facility] [address] [place], [place] [address] [place] [address] 200 [place] [address] * (ABNORMAL) Blood Gas with Coox, Arterial [...] Song M.D. [place] [address] * [place] Fluoro Less Than 1 Hour [...] CRNA, DNAP LAB BLOO D NON ADD-ON [facility] [address] [place] [address] * Lactate, B - Intra-op (08/15/2023 10:28 AM CDT) Lactate, B 1.1 0.5 - 2.2 mmol/L 08/15/2023 10:30 AM CDT [facility] Blood (Blood, Venous) 08/15/2023 10:28 AM CDT 08/15/2023 10:28 AM CDT Hayde Song M.D. LAB BLOOD NON ADD-O N [facility] [address] [place] [address] * Glucose, Whole Blood (08/15/2023 10:28 AM CDT) Glucose 134 70 - 140 mg/dL 08/15/2023 10:30 AM CDT [facility] Blood (Blood, Arterial Line) 08/15/2023 10:28 AM CDT 08/15/2023 10:28 AM CDT Hayde Song M.D. LAB BLOOD ADD-ON [facility] [address] [place] [address] * Potassium, Blood (08/15/2023 10:28 AM CDT) Potassium, B 4.1 3.6 - 5.2 mmol/L 08/15/2023 10:31 AM CDT [facility] Blood (Blood, Arterial Line) 08/15/2023 10:28 AM CDT 08/15/2023 10:28 AM CDT Narrative Authorizing Provider Result Abdifatah Song M.D. LAB BLOOD NON ADD-O N [facility] [address] [place] [address] * Sodium, B (08/15/2023 10:28 AM CDT) Sodium, B 135 135 - 145 mmol/L 08/15/2023 10:30 AM CDT [facility] Blood (Blood, Arterial Line) 08/15/2023 10:28 AM CDT 08/15/2023 10:28 AM CDT Narrative Authorizing Provider Result Abdifatah Song M.D. LAB BLOOD NON ADD-O N Performing Organization Address City/[facility]/ZIP Co de Phone Number [facility] [address] [place] [address], [facility] 200 [place] [address] * (ABNORMAL) Calcium, Ionized (08/15/2023 10:28 AM CDT) Calcium, Ionized, B 4.25(L) 4.65 - 5.30 mg/dL 08/15/2023 10:31 AM CDT [facility] Blood (Blood, Arterial Line) 08/15/2023 10:28 AM CDT 08/15/2023 10:28 AM CDT Narrative Authorizing Provider Result Abdifatah Song M.D. LAB BLOOD NON ADD-O N [facility] [address] [place] [address] [place] [address] * (ABNORMAL) Blood Gas with Coox, Arterial (08/15/2023 10:28 AM CDT) Pathologist [facility] pO2 171(H) 83 - 108 mm Hg [...] Song M.D. LAB BLOOD NON ADD-O N [facility] [address] [place] [address], [place] [facility] [address] [place] [address] * Bacteria / Yomaira Culture, Blood #2 (08/15/2023 3:33 AM CDT) Pathologist [facility] Bacteria/Leyla da Culture, Blood No growth after 5 days of incubation. 08/20/2023 6:02 AM CDT DTL Blood (Blood, Peripheral Draw) 08/15/2023 3:33 AM CDT 08/15/2023 5:58 AM CDT Comment:Specimen Source Site : Blood Narrative [facility] - 08/20/2023 6:02 AM CDT Received Bactec aerobic and Bactec anaerobic bottles Carlos Alberto Henson M.D. LAB MICROBIOLOGY - [facility] ORDERABLES [facility] [address] [place] [address], [facility] DTL [facility] [address] [place] [address] * (ABNORMAL) Basic Metabolic Panel (08/15/2023 3:31 [...] M.D. LAB BLOOD ADD-ON Performing Organization Address [facility] Co de Phone Number [facility] [address] [place] [address] * Bacteria / Yomaira Culture, Blood #1 (08/15/2023 3:31 AM CDT) Pathologist [facility] Bacteria/Leyla da Culture, Blood No growth after 5 days of incubation. 08/20/2023 6:02 AM CDT DTL Blood (Blood, Peripheral Draw) 08/15/2023 3:31 AM CDT 08/15/2023 5:59 AM CDT Comment:Specimen Source Site : Blood Carlos Alberto Henson M.D. LAB MICROBIOLOGY - G ENERAL ORDERABLES Performing Organization Address [facility] Co de Phone Number [facility] [address] [place] [address] * (ABNORMAL) CBC with Differential, Blood (08/15/2023 3:30 AM CDT) Pathologist [facility] Hemoglobin 9.5(L) 13.2 - 16.6 g/dL 08/15/2023 [...] Carlos Alberto Henson M.D. LAB BLOOD ADD-ON [facility] 200 [place] [address], [facility] DTL [facility] [address] [place] [address] [address] * (ABNORMAL) CBC with Differential, Blood (08/14/2023 8:08 PM CDT) [facility] Hemoglobin 9.8(L) 13.2 - 16.6 g/dL 08/14/2023 [...] Carlos Alberto Henson M.D. LAB BLOOD ADD-ON [facility] [address] [place] [address], [facility] STMA [facility] [address] [place] [address] [facility] [address] [place] [address] * Transfuse Red Blood Cells : , [...] with Differential, Blood (08/14/2023 3:18 AM CDT) [facility] Signature Hemoglobin 7.6(L) 13.2 - 16.6 [...] M.D. LAB BLOOD ADD-ON Performing Organization Address City/[facility]/ZIP Co de Phone Number [facility] [address] [place] [address], [place] STMA [facility] [address] [place] [address] [facility] [address] [place] [address] * (ABNORMAL) Basic Metabolic Panel (08/14/2023 3:18 AM CDT) [facility] Potassium, S 5.4(H) 3.6 - 5.2 mmol/L [...] Carlos Alberto Henson M.D. LAB BLOOD ADD-ON [facility] [address] [place] [address], [facility] [address] [place] [address] * Type and Screen (with Reflex Antibody ID) (08/13/2023 7:35 PM CDT) Pathologist [facility] ABORh O Pos Not applicable 08/13/2023 7:58 PM CDT STRM Antibody Screen Negative Negative 08/13/2023 8:13 PM CDT STRM Type & Screen Expiration 08/16/2023 23:59 08/13/2023 7:58 PM CDT STRM Testing Location Marcio DEFAULT 08/13/2023 7:39 PM CDT STRM Blood (Blood, Venous) 08/13/2023 7:35 PM CDT 08/13/2023 7:39 PM CDT Carlos Alberto Henson M.D. LAB BLOOD BANK TEST ORDERABLES Performing Organization Address [facility] Co de Phone Number [facility] [address] [place] [address], [facility] [address] [place] [address] * (ABNORMAL) Bacteria / Yomaira Culture, Blood #1 (08/13/2023 7:35 PM CDT) [facility] Bacteria/Cand jessica Culture, Blood ESCHERICHIA COLI Growth after 11 Hours (A) 08/16/2023 11:17 AM CDT DTL Comment: 3 of 3 Bottles, Susceptibilities performed on another specimen [id number] Blood (Blood, Peripheral Draw) 08/13/2023 7:35 PM CDT 08/13/2023 8:15 PM CDT Comment:Specimen Source Site : Blood Carlos Alberto Henson M.D. LAB MICROBIOLOGY - G ENERAL ORDERABLES Performing Organization Address City/[facility]/ZIP Co de Phone Number [facility] [address] [place] [address], [facility] [address] [place] [id number] * ECG 12 Lead (08/13/2023 7:02 PM CDT) Ventricular Rate ECG/Min 128 BPM MUSE SC Interval 138 ms MUSE QRSD Interval 64 ms MUSE QT Interval 304 ms MUSE QTC Interval 443 ms MUSE P Choteau 45 degrees MUSE R [place] 34 degrees MUSE T Wave [place] 46 degrees MUSE 08/13/2023 7:02 PM CDT [...] CDT Comment:Specimen Source Site : Blood Narrative [facility] - 08/16/2023 11:17 AM CDT Received [...] Carlos Alberto Henson M.D. LAB MICROBIOLOGY - [facility] ORDERABLES [facility] [address] [place] [address], [facility] [address] [place] [address] * Magnesium (08/13/2023 5:27 PM CDT) [facility] Signature Magnesium, S 1.9 1.7 - 2.3 mg/dL 08/13/2023 6:12 PM CDT DTL Blood (Blood, Venous) 08/13/2023 5:27 PM CDT 08/13/2023 5:58 PM CDT Carlos Alberto Henson M.D. LAB BLOOD ADD-ON [facility] 200 [place] [address], [address] [address] * (ABNORMAL) Hepatic Function Panel (08/13/2023 5:27 [...] Carlos Alberto Henson M.D. LAB BLOOD ADD-ON [facility] [address] [place] [address], [facility] [address] [place] [address] * (ABNORMAL) Basic Metabolic Panel (08/13/2023 5:27 [...] Carlos Alberto Henson M.D. LAB BLOOD ADD-ON [facility] [address] [place] [address], [facility] [address] [place] [address] * Prothrombin Time (PT) (08/13/2023 5:27 PM [...] Carlos Alberto Henson M.D. LAB BLOOD ADD-ON [facility] [address] [place] [address], [facility] [address] [place] [address] * (ABNORMAL) CBC with Differential, Blood (08/13/2023 [...] Carlos Alberto Henson M.D. LAB BLOOD ADD-ON [facility] [address] [place] [address], [facility] STMA [facility] [address] [place] [address] [facility] [address] [place] [address] * (ABNORMAL) Dipstick, Urine (08/13/2023 5:07 PM [...] Carlos Alberto Henson M.D. LAB URINE ORDERABLES [facility] [address] [place] [address], [place] DTL [facility] [address] [place] [address] * Osmolality, Urine (08/13/2023 5:07 PM CDT) Pathologist [facility] Osmolality, U 351 150 - 1150 mOsm/kg 08/13/2023 7:46 PM CDT DTL Urine 08/13/2023 5:07 PM CDT 08/13/2023 5:45 PM CDT Carlos Alberto Henson M.D. LAB URINE ORDERABLES Performing Organization Address [facility] Co de Phone Number [facility] [address] [place], [place] [address] [place] [address] 200 [place] [address] * (ABNORMAL) Microscopic Manual (08/13/2023 5:07 PM CDT) Pathologist [facility] Microscopy Abnormal 08/13/2023 7:57 PM CDT DTL RBC >100(A) <3 /hpf 08/13/2023 7:57 PM CDT DTL Dysmorphic RBC <25 <25 % 08/13/2023 7:57 PM CDT DTL WBC 51-100(A) /hpf 08/13/2023 7:57 PM CDT DTL Comment: ----REFERENCE VALUE---- <4 ??(Males) <11 (Females) Urine 08/13/2023 5:07 PM CDT 08/13/2023 5:45 PM CDT Carlos Alberto Henson M.D. LAB URINE ORDERABLES Performing Organization Address City/[facility] Co de Phone Number [facility] [address] [place] [address], [facility] [address] [place] [address] * pH, Random, Urine (08/13/2023 5:07 PM CDT) Pathologist [facility] pH, Random, U 7.0 4.5 - 8.0 08/13/2023 7:46 PM CDT DTL Urine 08/13/2023 5:07 PM CDT 08/13/2023 5:45 PM CDT Carlos Alberto Henson M.D. LAB URINE ORDERABLES [facility] [address] [place] [address], [place] [facility] [address] [place] [address] * (ABNORMAL) Bacterial Culture, Aerobic + Susceptibility, [...] Carlos Alberto Henson M.D. LAB MICROBIOLOGY - [facility] ORDERABLES [address] [address], [facility] [address] [address] * (ABNORMAL) Urinalysis, with Microscopic: Urine, Midstream [...] CDT DTL Predicted 24 [place] [id number](H) <229 mg/24 h 08/13/2023 8:50 PM CDT DTL Predicted Range [id number] mg/24 h 08/13/2023 8:50 PM CDT DTL Comment Micro done on <2.5 mL 08/13/2023 7:55 PM CDT DTL Urine (Urine, Midstream) 08/13/2023 5:07 PM CDT 08/13/2023 5:44 PM CDT Carlos Alberto Henson M.D. LAB URINE ORDERABLES [facility] [address] [place] [address], [facility] [address] [place] [address] * Interpretation of Outside CT Abdomen and [...] of the left extrarenal pelvis and ureter. Taabres catheter in place. Hyperattenuating debris layering within [...] use home supply. 08/17/23: Id'ed by [facility]. [facility] Rx# [id number], filled 07/22/23. HAZARDOUS - Handle with care. Swallow whole. Do NOT crush, chew or open capsule. Given 08/26/2023 9:12 AM CDT 120 mg Given 08/25/2023 9:08 AM CDT 120 mg Given 08/24/2023 9:12 AM CDT 120 mg fat emulsion ryp-hie-jarpf & fish oil infusion 50 g (SMOFlipid) [...] Lactated Ringer's 1.5 mL/kg/hr ? 75 kg [place] weight (112.5 mL/hr, rounded to 113 mL/hr), intravenous, Continuous, Starting on Tue08/22/23 at 1030, Conditional Phase Pre-Gastrografin Administration. (Rate = 1.5 mL/kg/hr ideal body weight) Lactated Ringer's 0.75 mL/kg/hr ? 75 kg [place] weight (56.25 mL/hr, rounded to 56.3 mL/hr), [...] use home supply. 08/17/23: Id'ed by [facility]. [facility] Rx# [id number], filled 07/22/23. HAZARDOUS - Handle with care. Swallow whole. Do NOT crush, chew or open capsule. 09 (Given - Provider: Tayler Forrest R.N. - Comment: Pat Murray, -2nd RN) 907 (Given - Provider: Tayler Forrest R.N. - Comment: Pt 's own med from home) 911 (Given - Provider: Lupe Valdez R.N.) fat emulsion qng-qys-rfydi & fish oil infusion 50 g (SMOFlipid) [...] Lactated Ringer's 1.5 mL/kg/hr ? 75 kg [place] weight (112.5 mL/hr, rounded to 113 mL/hr), intravenous, Continuous, Starting on Tue08/22/23 at 1030, Conditional Phase Pre-Gastrografin Administration. (Rate = 1.5 mL/kg/hr ideal body weight) Lactated Ringer's 0.75 mL/kg/hr ? 75 kg [place] weight (56.25 mL/hr, rounded to 56.3 mL/hr), [...] 1547 documented in this encounter Care Teams Brick Off Bearer Relationship Specialty Start Date End Date Elsewhere, Pcp PCP - General Internal Medicine 08/13/23 documented as of this encounter
--- OUTSIDE RECORDS SUMMARY | 2023-09-26 14:39 | XMS_ITS | Encounter Summary ---
Author Organization [facility] Address [address] [place] [address] Care Team Providers Care Electric Cell Tender Name Role Phone Elsewhere, Pcp Primary Care Provider Unavailabl e Encounter Details Date Type Department Care Team (Late st Contact Info) Description 08/23/2023 12:45 AM CDT Ancillary Procedure Department of Nursing Social History Tobacco Use Types Packs/Day Years Used Date Smoking Tobacco: Never Smokeless Tobacco: Never [facility] Utilities Answer Date Recorded In the past 12 months has [facility] electric, gas, oil, or water company [...] Procedure visit Department of Urology in [place], [place] [address] [place] [address] Paula Hernandez M.D. [address] [place] [address] documented as of this encounter Procedures Procedure [...] System IMG NON RAD IMAGI NG PROCEDURES IIWV NA documented in this encounter Visit Diagnoses Not on filedocumented in this encounter Care Teams Electric Cell Tender Relationship Specialty Start Date End Date Elsewhere, Pcp PCP - General Internal Medicine 08/13/23 documented as of this encounter
--- OUTSIDE RECORDS SUMMARY | 2023-09-26 14:39 | XMS_ITS | Encounter Summary ---
Author Organization [facility] Address [address] [place] [address] Care Team Providers Care Wagon Driller Name Role Phone Elsewhere, Pcp Primary Care Provider Unavailabl e Encounter Details Date Type Department Care Team (Late st Contact Info) Description 08/15/2023 8:30 AM CDT Anesthesia Event RST [facility] MAIN OR [address] [place] [address] Hayde Song M.D. [address] [place] [address] Anesthesia Record Procedure Summary Procedure Name Responsible [...] R.N. 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 Location: [place] [address] / [facility] in [place], [place] Providers: Boubacar Brock M.D. Pertinent components [...] patient / legal guardian, or through an lang interpreter; patient evaluated and approved for anesthesia [...] CDT Procedure visit Department of Urology in [place], [place] [address] [place] [address] Paula Hernandez M.D. [address] [place] [address] documented as of this encounter Procedures Procedure [...] ETT location: oral VL device: glide scope Jefferson scope blade size: 4 Tube size: 7.5 [...] mg documented in this encounter Care Teams Wagon Driller Relationship Specialty Start Date End Date Elsewhere, Pcp PCP - General Internal Medicine 08/13/23 documented as of this encounter
--- OUTSIDE RECORDS SUMMARY | 2023-09-26 14:40 | XMS_ITS | Encounter Summary ---
Author Organization [facility] Address [address] [place] [address] Care Team Providers Care Supervisor Mails Name Role Phone Elsewhere, Pcp Primary Care Provider Unavailabl e Encounter Details Date Type Department Care Team (Late st Contact Info) Description 08/13/2023 4:35 PM CDT Ancillary Procedure Department of Radiology in [place], [place] [address] [place] [address] Carlos Alberto Henson M.D. [address] [place] [address] Social History Tobacco Use Types Packs/Day Years Used Date Smoking Tobacco: Never Smokeless Tobacco: Never [facility] Utilities Answer Date Recorded In the past 12 months has [facility] [employer], gas, oil, or water [employer] threatened to shut off services in your [...] your living situation today? I have a [facility] place to live 08/13/2023 Sex and Gender Information Value Date Recorded Sex Assigned at Not on file Gender Identity Not on file Sexual Orientation Not on file documented as of this encounter Plan of Treatment Upcoming Encounters Date Type Department Care Team (Late st Contact Info) Description 10/14/2023 1:00 PM CDT Procedure visit Department of Urology in [place], [place] [address] [place] [address] Paula Hernandez M.D. [address] [place] [address] documented as of this encounter Procedures Procedure [...] on filedocumented in this encounter Care Teams Supervisor Mails Relationship Specialty Start Date End Date Elsewhere, Pcp PCP - General Internal Medicine 08/13/23 documented as of this encounter
--- OUTSIDE RECORDS SUMMARY | 2023-09-26 14:40 | XMS_ITS | Encounter Summary ---
Author Organization [facility] Address [address] [place] [address] Care Team Providers Care Fuel Cell Test Engineer Name Role Phone Elsewhere, Pcp Primary Care Provider Unavailabl e Encounter Details Date Type Department Care Team (Latest Contact Info) Description 08/13/2023 Intake [facility] Social History Tobacco Use Types Packs/Day Years Used Date Smoking Tobacco: Never Smokeless Tobacco: Never [facility] Utilities Answer Date Recorded In the [...] your living situation today? [facility] 08/13/2023 Sex and Gender Information Value Date Recorded Sex Assigned at Not on file Gender Identity Not on file Sexual Orientation Not on file documented as of this encounter Plan of Treatment Upcoming Encounters Date Type Department Care Team (Late st Contact Info) Description 10/14/2023 1:00 PM CDT Procedure visit Department of Urology in [place], [place] [address] [place] [address] Paula Hernandez M.D. 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
--- OUTSIDE RECORDS SUMMARY | 2023-09-26 14:40 | XMS_ITS | Encounter Summary ---
Author Organization [facility] Address [address] [place] [address] Care Team Providers Care Veneer Puller Name Role Phone Elsewhere, Pcp Primary Care Provider Unavailabl e Encounter Details Date Type Department Care Team (Late st Contact Info) Description 08/15/2023 7:55 AM CDT - 08/15/2023 11:23 AM CDT Surgery RST ROMB MAIN OR [address] [place] [address] Boubacar Brock M.D. [address] [place] [address] [phone] Palliative EXPLORATORY LAPAROTOMY, CYSTOTOMY CLOSURE, RIGHT URETERAL STENT EXCHANGE Social History Tobacco Use Types Packs/Day Years Used Date Smoking Tobacco: Never Smokeless Tobacco: Never [facility] Utilities Answer Date Recorded In the past 12 months has [facility] enVerid, gas, oil, or water [employer] threatened to shut off services in your [...] have a [facility] place to live 08/13/2023 Sex and Gender [...] AM CDT DISCHARGE SUMMARY BRIEF OVERVIEW Hospital: [facility] Discharge Provider: Boubacar Brock M.D. Primary Team: [facility] Urology Surgery - Chief Helga Rojas [...] M.D.Wen, Lexiaochuan, M.D.Premo, Hayley, M.D.Botkin, Hannah, M.D. [facility] ROMB OR DISCHARGE DISPOSITION Home or Self Care [1] ACTIVE ISSUES REQUIRING FOLLOW UP OUTPATIENT FOLLOW UP Scheduled Appointments 08/26/2023 1:00 PM [facility] Radiology For appointment details refer to [...] he felt completely obstructed and presented to [facility]. [facility] Attempted Tabares insertion but bladder irrigation was unsuccessful on multiple attempts. Hung 1U pRBC's. Given some volume and transferred to [facility] ICU ICU Course Urology consulted [...] CONSULT TO NUTRITION SUPPORT IP CONSULT TO PLANT MAINTENANCE SUPERVISOR WOUND CARE CONDITION AT DISCHARGE stable Discharge [...] he felt completely obstructed and presented to [facility]. [facility] Course Attempted Tabares insertion but bladder irrigation was unsuccessful on multiple attempts. Hung 1U pRBC's. Given some volume and transferred to [facility] ICU ICU Course Urology consulted [...] PM CDT You were discharged from the [facility] Urology Surgery - Chief A - Blue Service. Please identify this service name if you call with questions after hospitalization. * Attachments The following attachments cannot be sent through Care Everywhere. * Bacitracin (On the skin) (Peruvian) * Cefdinir (By mouth) (Peruvian) * Trospium (By mouth) (Peruvian) documented in this encounter Medications at Time [...] Progress Notes * Emeterio Buchanan P.T., D.P.T., [facility] - 08/26/2023 4:27 PM CDT 08/26/23 1627 Reason Therapy Missed Reason Therapy Missed Receiving other care Attempted to see patient twice today. On 1st attempt patient was receiving blood transfusion and RNwas working on completing cares with him. On 2nd attempt patient was with another provider. * Chary Diamond M.A., O.T., [facility] - 08/26/2023 10:21 AM CDT Occupational Therapy Acute Hospital Inpatient Treatment SUBJECTIVE Patient's Name: Kalen Vega Referring/Attending Provider: Boubacar Brock M.D. Reason for Referral: Occupational Therapy Evaluation and Treatment History of Present Illness: Kalen Vega is a 83 y.o. male who was admitted to [facility] in [place] on 08/13/2023 for Hematuria [R31.9]. Precautions Other Precautions: Abdominal, fall precautions, monitor tachycardia and hypertension Pain Assessment: Pain not reported during session. Subjective Comments: Agreeable to therapy session. Team Communication: The patient's status was discussed and coordination of care occurred with RN, Family/Caregiver, nurse tech Family/Caregiver Present: son and [id number] OBJECTIVE Vital Signs: Vitals not formally assessed during session. No concerns during chart review and the patient had nosigns or symptoms consistent with vital changes during therapy session. Outcome Measures: [facility] Inpatient Short [...] through pant leg first. - Adaptive Equipment: Magnetic Testing Technician TOILETING - Assist Level: Maximal Assist - [...] (Edge of bed) - Assist Level: Modified Berg[place] - Equipment: bed rail - Therapist Delivery: assessed, instructed, assisted - Adaptive Equipment: leg rectification printer trialed ; however, patient able to move [...] extremity (stiff knee) first. Recommended adaptive equipment: Magnetic Testing Technician. Toileting - Patient instructed on accurate positioning [...] maximal exertion Handouts provided: Bathroom Safety Equipment [id number], Techniques to Help You Save Energy [id number] Patient was left in bedside chair with [...] health care OBJECTIVE Patient is admitted in [place] 6C -room 121 ASSESSMENT / PLAN SERVICE CENTER COORDINATORfiscal manager met with patient and son Kar to inform them of home health care acceptance for PT/OT. Patient's son Kar and jlpegcdq-by-pir will provide transportation at the time of discharge. PLAN Patient to discharge home with home health care. Home Medical Care - Admitted Since 08/13/2023 Service Provider Selected Services Address Phone Fax Patient Preferred [email or web address] [facility] [address] [facility] [phone] -- Procurement Professional: Ghazal NURSING: - Complete documentation in the Discharge Navigator including Nursing Report Info and Facility/NextLevel of Care Info - Call report and arrange for the patient's first visit - Send After Visit Summary and required packet of dismissal information with patient, including advance directive. PRIMARY SERVICE: - Please provide a non-[facility] home health order for: physical therapy and [...] be provided by family--patient's son Kar and zoilmudv-if-zmq. 3. stamper blocker recommended reaching out to family, friends, and neighbors for assistance. 4. stamper blocker provided information regarding the dismissal process. Damaris [...] Reviewed with patient #1 Hematuria Please page [facility] ([phone]) or [facility] ([phone]) Nutrition Support Service pager with questions. * Emeterio Buchanan PCarlos, D.P.T., GCS - 08/25/2023 9:35 AM CDT Physical Therapy Inpatient Treatment SUBJECTIVE Patient's Name: Kalen Craig Vega Referring/Attending Provider: Boubacar Brock M.D. Reason for Referral: Physical Therapy Evaluate and Treat History of Present Illness: Kalen Vega is a 83 y.o. male who was admitted to [facility] in [place] on 08/13/2023 for Hematuria [R31.9] Precautions Other [...] Measures: [facility] Inpatient Short Form: -[facility] Basic Mobility (V.2) How much help [...] 3-5 steps with a railing?: A Little -[facility] Basic Mobility (V.2) Raw Score: 18 -[facility] Basic Mobility (V.2) Standardized Score: 41.05 [...] fit with adult there which they usually [place] with a difference educated fully know who [...] - 08/25/2023 9:18 AM CDT Occupational Therapy [facility] Inpatient Treatment SUBJECTIVE Patient's Name: Kalen Vega Referring/Attending Provider: Boubacar Brock M.D. Reason for Referral: Occupational Therapy Evaluation and Treatment History of Present Illness: Kalen Vega is a 83 y.o. male who was admitted to [facility] in [place] on 08/13/2023 for Hematuria [R31.9]. Precautions Other [...] including figure four technique. Recommended adaptive equipment: Magnetic Testing Technician and Sock Aid. Toileting - Patient instructed [...] and modification tools as needed including leg rectification printer and/or bed adjustments. Bathroom DME: - Educated [...] in place draining clear yellow urine I/O ([id number]): Fifty-five cc serosanguineous from the drain 1 [...] locallyfor CBI. He was subsequently transferred to [facility] 08/12 for difficulty irrigating his catheter [...] 2.5 mg BID eliquis initiated 08/15 per [facility] med curbside recs --transition from eliquis [...] have him follow up with his local soft iron inspector Comorbidities: --history of DVT status post IVC [...] discussed with Dr. Venegas, chief urology resident pets and pet supplies salesperson. Pager during business hours: [phone] Pager after hours: [phone] * Emeterio Buchanan P.Maira., D.P.T., GCS - 08/24/2023 10:46 AM CDT Physical Therapy Inpatient Treatment SUBJECTIVE Patient's Name: Kalen Vega Referring/Attending Provider: Boubacar Brock M.D. Reason for Referral: Physical Therapy Evaluate and Treat History of Present Illness: Kalen Vega is a 83 y.o. male who was admitted to [facility] in [place] on 08/13/2023 for Hematuria [R31.9] Precautions Other [...] %, and O2flow: Room air Outcome Measures: [facility] Inpatient Short Form: -[facility] Basic Mobility (V.2) How much help [...] 3-5 steps with a railing?: A Lot -[facility] Basic Mobility (V.2) Raw Score: 17 -[facility] Basic Mobility (V.2) Standardized Score: 39.67 [...] baseline. PT Goal #2: Patient will perform kgb-kq-kvgnu transfer with modified independence and least restrictive [...] Total Kcal/day: 1370 based on 84 % Garcia-Loma Non-standard additives: K 80 mEq Phos 30 [...] magnesium, phosphorus tomorrow. #1 Hematuria Please page [facility] ([phone]) or [facility] ([phone]) Nutrition Support Service pager with questions. * [...] catheter in place draining light smith I/O ([id number]): Forty-two cc serosanguineous from the drain 2.2 [...] locallyfor CBI. He was subsequently transferred to [facility] 08/12 for difficulty irrigating his catheter [...] have him follow up with his local soft iron inspector Comorbidities: --history of DVT status post IVC [...] discussed with Dr. Venegas, chief urology resident pets and pet supplies salesperson. Pager during business hours: [phone] Pager after hours: [phone] * Deanne Mike L.G.STimi, M.S.W. - 08/23/2023 11:25 AM CDT SUBJECTIVE Social Work spoke with [facility]. They cannot provide chcf at this time. They can provide OT/PT [...] anticipated discharge date of 08/24/23-08/26/23. Referrals sent: [facility] [place] [facility] (out of service area) [facility] ASSESSMENT / PLAN ASSESSMENT Patient has robust family support including a son living with him. PLAN Patient desires home health care through [facility]. Social Work will continue to follow to provide support. Social Work will continue to assist with discharge needs. Shorty Sun, M.S.W. 08/23/23 * Jazmine Benítez R.N., C.W.C.N. - 08/23/2023 11:10 AM CDT [facility] Wound RN consulted to assess Kalen Vega [...] stent and hematuria who is transferred from [facility] with 3 days of hematuria and [...] None Unable to Measure Y *Wound Bed Closed;[place];Red Tissue Exposed None Odor None *Exudate Amount [...] 30 minutes > 30 minutes Ongoing management Nursing;Wound/heel blacker Partial head to toe skin assessment completed [...] AM CDT * Emeterio Buchanan, P.T., D.P.T., [facility] - 08/23/2023 11:02 AM CDT Physical Therapy Inpatient Treatment SUBJECTIVE Patient's Name: Kalen Vega Referring/Attending Provider: Boubacar Brock M.D. Reason for Referral: Physical Therapy Evaluate and Treat History of Present Illness: Kalen Vega is a 83 y.o. male who was admitted to [facility] in [place] on 08/13/2023 for Hematuria [R31.9] Precautions Other [...] 3-5 steps with a railing?: A Lot -[facility] Basic Mobility (V.2) Raw Score: 17 -[facility] Basic Mobility (V.2) Standardized Score: 39.67 [...] baseline. PT Goal #2: Patient will perform mha-qe-rkqnx transfer with modified independence and least restrictive [...] Total Kcal/day: 1370 based on 84 % Garcia-Loma Non-standard additives: MAX chloride Thiamine 100 mg [...] magnesium, phosphorus tomorrow. #1 Hematuria Please page [facility] ([phone]) or [facility] ([phone]) Nutrition Support Service pager with questions. * Ivy Hernandez OMarlon. - 08/23/2023 8:30 AM CDT Occupational Therapy Acute Hospital Inpatient Treatment SUBJECTIVE Patient's Name: Kalen Vega Referring/Attending Provider: Boubacar Brock M.D. Reason for Referral: Occupational Therapy Evaluation and Treatment History of Present Illness: Kalen Vega is a 83 y.o. male who was admitted to [facility] in [place] on 08/13/2023 for Hematuria [R31.9]. Precautions Other [...] catheter in place draining clear yellow I/O ([id number]): 73 cc serosanguineous from the drain Seven [...] locallyfor CBI. 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 [facility] Summary: Diet: NPO, TPN Activity: Ad [...] discussed with Dr. Venegas, chief urology resident pets and pet supplies salesperson. Pager during business hours: [phone] Pager after hours: [phone] * Chary Diamond M.A., O.TJonah, OMAYRA - [...] just [facility] would like referral sent there. Social Work sent referral. OBJECTIVE Patient is anticipated to remain at [place] for 3-5 days. Referrals sent: [facility] ASSESSMENT / PLAN ASSESSMENT Patient has robust family support including a son living with him. PLAN Patient desires home health care through [facility]. Social Work will continue to follow to [...] 83 y.o. male who was admitted to [facility] in [place] on 08/13/2023 for Hematuria [R31.9] Precautions Other [...] hypotension or respiratory distress. . Outcome Measures: AM-[facility] Inpatient Short Form: AM-[facility] Basic Mobility (V.2) How much help [...] baseline. PT Goal #2: Patient will perform cfs-yw-trdwt transfer with modified independence and least restrictive [...] D.P.T., GCS * Demarco Salazar, Phuc., R.Ph., [facility] - 08/22/2023 10:57 AM CDT Pharmacist Progress [...] Total Kcal/day: 1370 based on 84 % Garcia-Loma Non-standard additives: MAX chloride Thiamine 100 mg [...] place draining light smith colored urine I/O ([id number]): CBI on slow drip 75 cc serosanguineous [...] locallyfor CBI. He was subsequently transferred to [facility] 08/12 for difficulty irrigating his catheter [...] have him follow up with his local soft iron inspector Comorbidities: --history of DVT status post IVC [...] discussed with Dr. Venegas, chief urology resident pets and pet supplies salesperson. Pager during business hours: [phone] Pager after hours: [phone] * Qamar Jim, Pharm.D., R.Ph. - 08/21/2023 [...] place draining clear smith colored urine I/O ([id number]): 1800 cc urine output 75 cc serosanguineous [...] locallyfor I. He was subsequently transferred to [facility] 08/12 for difficulty irrigating his catheter [...] have him follow up with his local soft iron inspector Comorbidities: --history of DVT status post IVC [...] discussed with Dr. Venegas, chief urology resident pets and pet supplies salesperson. Pager during business hours: [phone] Pager after hours: [phone] * Lizette Harvey M.D. - 08/20/2023 8:08 [...] draining clear thin merlot colored urine I/O ([id number]): 240 cc p.o. intake 760 cc urine [...] locallyfor CBI. He was subsequently transferred to [facility] 08/12 for difficulty irrigating his catheter [...] have him follow up with his local soft iron inspector Comorbidities: --history of DVT status post IVC [...] questions or concerns. Pager during business hours: [phone] Pager after hours: [phone] * Qamar Jim, Pharm.D., R.Ph. - 08/20/2023 [...] Jim Pharm.D., R.Ph. * Lisa Seaman, O.T., [facility] - 08/19/2023 2:26 PM CDT Occupational Therapy [facility] Inpatient Treatment SUBJECTIVE Patient's Name: Kalen Vega Referring/Attending Provider: Boubacar Brock M.D. Reason for Referral: Occupational Therapy Evaluation and Treatment History of Present Illness: Kalen Vega is a 83 y.o. male who was admitted to [facility] in [place] on 08/13/2023 for Hematuria [R31.9]. Precautions Other [...] about patient's nutritional care please contact pager [phone] on weekdays or [phone] on weekends/holidays. NUTRITION ASSESSMENT: Mr. Vega is [...] care everywhere) ESTIMATED NEEDS: Total Calorie Needs: 6384-1440 calories/day Method to Estimate Energy Needs: kcal/kg [...] 83 y.o. male who was admitted to [facility] in [place] on 08/13/2023 for Hematuria [R31.9] Precautions Other [...] mmHg O2: 96% Room air Outcome Measures: [facility] Inpatient Short Form: -[facility] Basic Mobility (V.2) How much help [...] 3-5 steps with a railing?: A Little -[facility] Basic Mobility (V.2) Raw Score: 18 -[facility] Basic Mobility (V.2) Standardized Score: 41.05 Interpretation: Based on scoring guidelines using the raw score value: Those going to home had an average score at or above 18 Those going to facility had an average score at or below 17 Clinicians answer the -[facility] Inpatient Short Form based on observed [...] Ongoing PT Goal #2: Patient will perform etj-pn-raxed transfer with modified independence and least restrictive [...] in place draining clear pink urine I/O ([id number]): 370 p.o. intake 1 L urine output [...] locallyfor I. He was subsequently transferred to [facility] 08/12 for difficulty irrigating his catheter [...] 2.5 mg BID eliquis initiated 08/15 per [facility] med curbside recs --transition from eliquis [...] have him follow up with his local soft iron inspector Comorbidities: --history of DVT status post IVC [...] questions or concerns. Pager during business hours: [phone] Pager after hours: [phone] * Lisa Seaman O.T., MOT - 08/18/2023 11:15 AM CDT Occupational Therapy [facility] Inpatient Treatment SUBJECTIVE Patient's Name: Kalen Vega Referring/Attending Provider: Boubacar Brock M.D. Reason for Referral: Occupational Therapy Evaluation and Treatment History of Present Illness: Kalen Vega is a 83 y.o. male who was admitted to [facility] in [place] on 08/13/2023 for Hematuria [R31.9]. Precautions Other [...] doffing over it last. Recommended adaptive equipment: Magnetic Testing Technician and Sock Aid. Patient was left in bedside chair, with nursing/ACCOUNTING POLICY CONSULTANT at end of session with call light [...] 26 min Lisa Seaman O.T., JODY * KarScott rajput P.T., D.P.T. - 08/18/2023 8:18 AM CDT Physical Therapy Inpatient Treatment SUBJECTIVE Patient's Name: Kalen Vega Referring/Attending Provider: Boubacar Brock M.D. Reason for Referral: Physical Therapy Evaluate and Treat History of Present Illness: Kalen Vega is a 83 y.o. male who was admitted to [facility] in [place] on 08/13/2023 for Hematuria [R31.9] Precautions Other [...] at or below 17 Clinicians answer the -[facility] Inpatient Short Form based on observed [...] following coordination of care occurred with the outside machinist helper/Caregiver Present: No Patient was left in bedside [...] Progressing PT Goal #2: Patient will perform yjx-hk-xyovi transfer with modified independence and least restrictive [...] in place draining clear pink urine I/O ([id number]): 1.2 L p.o. intake 1 L urine [...] locallyfor CBI. He was subsequently transferred to [facility] 08/12 for difficulty irrigating his catheter [...] diet later today follow up vascular medicine [facility] Summary: Diet: currently limited clears Activity: Ad kong DVT PPX: heparin drip GI PPX: Pantoprazole Bowel Regimen:N/A IVF: none Abx/Microbiology: Ceftriaxone Pain Control: Tylenol, oxycodone 08/18. Scheduled trospium Home Meds Resumed: Metoprolol, tamsulosin, rosuvastatin Held Home Meds: None Consults: None Paula Hernandez M.D. 08/18/2023 6:02 AM CDT Please page the Urology Chief Service with questions or concerns. Pager during business hours: [phone] Pager after hours: [phone] * Tayler Greenwood M.D., M.Ed. - 08/17/2023 [...] MD, MEd * Alia Ruelas Pharm.D., R.Ph., [facility] - 08/17/2023 6:08 PM CDT Heparin Indication: [...] the patient follow up with his primary soft iron inspector at discharge we will which we will [...] Ringer's Lactated Ringer's * Lisa Seaman, O.T., [facility] - 08/17/2023 10:47 AM CDT Occupational Therapy [facility] Inpatient Treatment SUBJECTIVE Patient's Name: Kalen Vega Referring/Attending Provider: Boubacar Brock M.D. Reason for Referral: Occupational Therapy Evaluation and Treatment History of Present Illness: Kalen Vega is a 83 y.o. male who was admitted to [facility] in [place] on 08/13/2023 for Hematuria [R31.9]. Precautions Other [...] in place draining clear pink urine I/O ([id number]): NG tube 200 cc Two hundred sixty-five [...] locallyfor CBI. He was subsequently transferred to [facility] 08/12 for difficulty irrigating his catheter [...] since 08/11) -discussed with vascular Medicine [facility] 08/15 regarding ongoing anticoagulation/antiplatelet. Theyfelt he no [...] questions or concerns. Pager during business hours: [phone] Pager after hours: [phone] * Audi De Luna P.T., D.P.T. - [...] in place draining clear pink urine I/O ([id number]): NG tube 200 cc Two hundred sixty-five [...] locallyfor CBI. He was subsequently transferred to [facility] 08/12 for difficulty irrigating his catheter [...] with Card[facility]: Diet: NPO Activity: Ad kong DVT PPX: Ashley heparin GI PPX: Pantoprazole Bowel Regimen:N/A IVF: LR 75 Abx/Microbiology: Ceftriaxone Pain Control: Tylenol, oxycodone 08/18. Scheduled trospium Home Meds Resumed: Metoprolol, tamsulosin, rosuvastatin Held Home Meds: None Consults: None Signed by: Paula Hernandez M.D. 08/16/2023 6:02 AM CDT Please page the Urology Chief Service with questions or concerns. Pager during business hours: [phone] Pager after hours: [phone] * Paula Hernandez M.D. - 08/15/2023 9:09 AM CDT PROGRESS NOTE: No events. AFVSS. Pain controlled. No flatus. No further emesis overnight. Abdomen more distended than yesterday but remained soft, tender to deep palpation only, no rebound. Twenty-four [place] three-way catheter remains off CBI, draining [...] for CBI. He was subsequently transferred to [facility] 08/12 for difficulty irrigating his catheter [...] above was discussed with Dr. Brock, urology cancer program consultant on-call who is in agreement with [...] Family to bring his home enzalutamide from [place] Irvin Franco Pharm.D., R.Ph. * Jakob De Paz M.D. - 08/14/2023 11:34 AM CDT PROGRESS NOTE: No events. AFVSS. Pain controlled. No flatus. Nauseous and had 2 episodes of emesis. Abdomen more distended than yesterday but remained soft, tender to deep palpation only, no rebound. Twenty-four South African Alcock three-way catheter remains off CBI, draining [...] for CBI. He was subsequently transferred to [facility] 08/12 for difficulty irrigating his catheter [...] above was discussed with Dr. Brock, urology cancer program consultant on-call who is in agreement with [...] Patient discussed with Dr. Sylvester. Page CCM3 [id number] Carlos Alberto Henson M.D. PGY-1 CCM 3 [...] who have asked we place a 24 South African 3-way urinary catheter pending evaluation. We will [...] him to present to local hospital in [place]. OSH Course: His hemoglobin was in the [...] Insecurity: No Food Insecurity (02/16/2022) [facility] Food Insecurity Worried About Running Out of Food in the Last Year: 1 Transportation Needs: No Transportation Needs (02/16/2022) [facility] Transportation Needs Lack of Transportation (Medical): 1 Housing Stability: Low Risk (02/16/2022) [facility] Housing Stability Unable to Pay for Housing [...] Dr. Sylvester and Dr. Rodriguez. Page CCM3 [id number] Carlos Alberto Henson M.D. PGY-1 CCM 3 [...] As expected PRIMARY PROCEDURALIST FAY Cerna MD [phone] ASSISTANTS none COMPLICATIONS None. DRAINS None. IMPLANTS [...] peripheral vein targets. Ultrasound used for assessment: [place] VenStartist Fit Provider contacted (include name): Uro Surg [...] 14 -- AST U/L 25 -- Radiology: @[id number]@ Swallow Assessment: No data to display ASSESSMENT / PLAN #1 Hematuria ASSESSMENT Currently we are asked to visit with Mr. Vega for consideration of parenteral nutrition. Nutrition Needs: Height: 180 cm Admission Weight: 91.2 kg (08/13/2023) Current Weight: 90.2 kg BMI (Calculated): 27.8 kg/m?? Total Calorie Needs: 5175-5231 calories/day Method to Estimate Energy Needs: Garcia-Loma ( ) Weight Used for Equation Calculations: [...] on electrolytes Please call NSS pager at [phone] at [facility] or [phone] at [facility] with any additional questions. * Gilbert Johnson M.D. - 08/20/2023 8:05 AM CDTAssociated Order(s): Nutrition support service consult ([facility]) SUBJECTIVE Nutrition support service consult ([facility]) Referring Provider: Lizette Harvey M.D. REASON FOR [...] values in this interval not displayed. Radiology: @[id number]@ Swallow Assessment: No data to display ASSESSMENT / PLAN #1 Hematuria ASSESSMENT Currently we are asked to visit with Mr. Vega for consideration of parenteral nutrition. Nutrition Needs: Height: 180 cm Admission Weight: 91.2 kg (08/13/2023) Current Weight: 90.2 kg BMI (Calculated): 27.8 kg/m?? Total Calorie Needs: 8437-6647 calories/day Method to Estimate Energy Needs: kcal/kg [...] on electrolytes Please call NSS pager at [phone] at [facility] or [phone] at [facility] with any additional questions. BILLING/CODING Total visit [...] stent along with other stents and apparently soft iron inspector in the past I recommended indefinite dual [...] the history of present illness. @[facility]@ OBJECTIVE Current Facility-Administered Medications: acetaminophen tablet 650 [...] 20 mL/hr, intravenous, Continuous, Frieda Garner APRN, LIQUID SUGAR FORTIFIER, Last Rate: 20 mL/hr at 08/15/23 1459, [...] but he can discuss this with his soft iron inspector at home. We need to balance transfusion [...] 83 y.o. male who was admitted to [facility] in [place] on 08/13/2023 for Hematuria [R31.9]. Relevant Medical History: Kalen Vega is a 83 y.o. 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 [...] heels well perfused and intact. Outcome Measures: [facility] Inpatient Short Form: AM-[facility] Basic Mobility (V.2) How much help [...] following coordination of care occurred with the outside machinist helper/Caregiver Present: SonFavio Patient was left in bedside [...] 83 y.o. male who was admitted to [facility] in [place] on 08/13/2023 for Hematuria with cystotomy and [...] Min assist for mobility. Required assist for [id number] for force generation and is generally standby [...] Ongoing PT Goal #2: Patient will perform [id number] transfer with modified independence and least restrictive [...] - 08/16/2023 10:01 AM CDT Occupational Therapy [facility] Inpatient Evaluation/Treatment SUBJECTIVE Patient's Name: Kalen Vega Referring/Attending Provider: Boubacar Brock M.D. Reason for Referral: Occupational Therapy Evaluation and Treatment PERTINENT MEDICAL / SURGICAL HISTORY: Kalen Vega has no past medical history on file. Kalen Vega has no past surgical history on file. History of Present Illness: Kalen Vega is a 83 y.o. male who was admitted to [facility] in [place] on 08/13/2023 for Hematuria [R31.9]. Relevant Medical [...] with RN, PT Family/Caregiver Present: Son and zaggiwyl-do-ome. Home Living and Equipment: Lives with: Spouse/Significant [...] walker, Single point cane Adaptive Equipment Owned: Magnetic Testing Technician, Long Handled Shoe Horn Other DME Owned: Regular flat bed Prior Level of Function and Mobility: Basic Activities of Daily Living: Independent Instrumental Activities of Daily Living: Required Assistance: Laundry son assists with laundry and cooking Functional Mobility: Independent Driving: Yes Occupational Role: Retired Leisure Interests: watch movies, plays [employer]™ train, meets friends for breakfast. Patient/Caregiver Goals: [...] all are a great support. 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 Patient expressed understanding and was [...] engaged in conversation with his family when protective services social worker entered the room. He was [...] locally at approximately 3:00 a.m. a 22 South African three-way catheter was placed and CBI wasinitiated. Unfortunately he clotted off the catheter multiple times despite manual irrigations, started to develop hypotension and tachycardia and [facility] He relays the above history [...] non-distended, non-peritonitic Extremities: No edema : 22 South African three-way Tabares catheter draining a minimal amount [...] urinary retention Given his non draining 22 South African three-way catheter the Urology techs and I subsequently exchanged this for a 24 South African three-way Alcock in the usual sterile fashion. [...] to follow [place] [phone] with questions or concerns Sixto Cain M.D. [...] peripheral vein targets. Ultrasound used for assessment: [employer] Fit Provider contacted (include name): Uro Surg [...] CDT Patient Transfer Note Patient transferred to: [facility] Room: [facility] Accompanied by: JAMEL Garcia Report called? [...] signs? YES * Sixto Teague R.R.T., L.RCarlos, ETHYLBENZENE CRACKING SUPERVISOR-[facility] - 08/14/2023 7:00 AM CDT Patient is [...] the last 24hours. 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 His existing 24 South African three-way Tabares catheter was noted to be [...] additional tissue for additional coverage. A 24 South African three-way catheter was placed with 15 cc in the balloon. This irrigated to light clear pink. A 15 South African YARELI drain wasplaced into the pelvis exiting left lower quadrant. The fascia was closed with interrupted and [id number] 0 PDS. Fat was approximated using 3-0 [...] RN, CPN, CCDS, CCS, CRC Clinical Documentation Deli Cutter Slicer Query created by: ELMER Barker, RN, CPN, [...] stent and hematuria who is transferred from [place] ED with 3 days of hematuria & [...] RN, CPN, CCDS, CCS, CRC Clinical Documentation Deli Cutter Slicer Query created by: ELMER Barker, RN, CPN, [...] he felt completely obstructed and presented to [place] ED. [place] Course Attempted Tabares insertion but bladder irrigation was unsuccessful on multiple attempts. Hung 1U pRBC's. Given some volume and transferred to [facility] ICU ICU Course Urology consulted [...] CDT Procedure visit Department of Urology in [place], [place] [address] [place] [address] Paula Hernandez M.D. [address] [place] [address] Pending Results Name Type Priority Associated Diagnoses [...] Cells : (08/26/2023 12:52 PM CDT) Corin iRng M.D. BLOOD TRANSFUSION OR DERABLES * Transfuse [...] 08/26/2023 7:16 AM CDT STRM Testing Location [place] [facility] 08/26/2023 6:57 AM CDT STRM Blood (Blood, Venous) 08/26/2023 6:50 AM CDT 08/26/2023 6:57 AM CDT Paula Hernandez M.D. LAB BLOOD BANK TEST ORDERABLES [facility] [address] [place] [address], [place] [facility] [place] [address] [place] [address] * (ABNORMAL) CBC without Differential (08/26/2023 3:20 [...] CDT Corin Ring M.D. LAB BLOOD ADD-ON [facility] [address] [place] [address] * Magnesium (08/26/2023 3:20 AM CDT) Magnesium, S 2.1 1.7 - 2.3 mg/dL 08/26/2023 4:04 AM CDT DTL Blood (Blood, Venous) 08/26/2023 3:20 AM CDT 08/26/2023 3:50 AM CDT Boubacar Brock M.D. LAB BLOOD ADD-ON [facility] [address] [place] [address] * (ABNORMAL) Renal Function Panel (08/26/2023 3:20 [...] CDT Boubacar Brock M.D. LAB BLOOD ADD-ON [facility] [address] [place] [address], [facility] DTL [facility] [address] [place] [address] * Heparin Anti-Xa Assay (08/26/2023 3:20 AM [...] Hoyt M.D. [place] [address], [facility] [place] [address] * (ABNORMAL) CBC without Differential (08/25/2023 3:24 [...] CDT Corin Ring M.D. LAB BLOOD ADD-ON [facility] [address] [place] [address], [facility] DTL [facility] [address] [place] [address] * (ABNORMAL) Renal Function Panel (08/25/2023 3:24 [...] M.D. LAB BLOOD ADD-ON Performing Organization Address City/[facility]/ZIP Co de Phone Number [facility] [address] [place] [address], [facility] [address] [place] [address] * Magnesium (08/25/2023 3:24 AM CDT) Pathologist [facility] Magnesium, S 2.2 1.7 - 2.3 mg/dL 08/25/2023 4:36 AM CDT DT Blood (Blood, Venous) 08/25/2023 3:24 AM CDT 08/25/2023 4:19 AM CDT Boubacar Brock M.D. LAB BLOOD ADD-ON Performing Organization Address [facility] Co de Phone Number [facility] [address] [place] [address], [facility] [address] [place] [address] * Heparin Anti-Xa Assay (08/25/2023 3:24 AM CDT) Pathologist [facility] Heparin Anti-Xa, P 0.31 IU/mL 2023 [...] Boubacar Brock M.D. LAB BLOOD NON ADD-ON [facility] [address] [place] [address], [facility] DTL [facility] [address] [place] [address] * (ABNORMAL) CBC without Differential (08/24/2023 5:28 [...] CDT Corin Ring M.D. LAB BLOOD ADD-ON [facility] [address] [place] [address], [facility] DTL [facility] [address] [place] [address] * Magnesium (08/24/2023 5:28 AM CDT) Magnesium, S 2.3 1.7 - 2.3 mg/dL 08/24/2023 6:19 AM CDT DTL Blood (Blood, Venous) 08/24/2023 5:28 AM CDT 08/24/2023 6:00 AM CDT Boubacar Brock M.D. LAB BLOOD ADD-ON [facility] [address] [place] [address], [facility] [address] [place] [address] * (ABNORMAL) Renal Function Panel (08/24/2023 5:28 [...] M.D. LAB BLOOD ADD-ON Performing Organization Address City/[facility] Co de Phone Number [facility] [address] [place], [place] [phone] [place] [address] [address] [place] [address] * Heparin Anti-Xa Assay (08/24/2023 5:28 AM CDT) [facility] Heparin Anti-Xa, P 0.33 IU/mL 2023 5:58 [...] NON ADD-ON Performing Organization Address [facility] Co de Phone Number [facility] [address] [place], [place] [id number] [place] [address] [facility] [address] [place] [address] * (ABNORMAL) Potassium (08/23/2023 9:58 PM CDT) [facility] Potassium, S 3.5(L) 3.6 - 5.2 mmol/L 08/23/2023 10:45 PM CDT DT Blood (Blood, Venous) 08/23/2023 9:58 PM CDT 08/23/2023 10:30 PM CDT Boubacar Brock M.D. LAB BLOOD ADD-ON Performing Organization Address City/[facility]/ZIP Co de Phone Number [facility] [address] [place] [address], [facility] [address] [place] [address] * (ABNORMAL) Phosphorus Inorganic (08/23/2023 9:58 PM CDT) [facility] Phosphorus (Inorganic), S 2.1(L) 2.5 - 4.5 mg/dL 08/23/2023 10:45 PM CDT DT Blood (Blood, Venous) 08/23/2023 9:58 PM CDT 08/23/2023 10:30 PM CDT Paula Hernandez M.D. LAB BLOOD ADD-ON Performing Organization Address City/[facility]/ZIP Co de Phone Number [facility] [address] [place] [address], [facility] [address] [place] [address] * Heparin Anti-Xa Assay (08/23/2023 11:37 AM CDT) [facility] Heparin Anti-Xa, P 0.51 IU/mL 2023 12:42 [...] NON ADD-ON Performing Organization Address [facility]/ZIP Co de Phone Number [facility] [address] [place] [address], [facility] DTL [facility] [address] [place] [address] * (ABNORMAL) CBC without Differential (08/23/2023 3:42 AM CDT) [facility] Hemoglobin 8.3(L) 13.2 - 16.6 g/dL 08/23/2023 [...] M.D. LAB BLOOD ADD-ON Performing Organization Address City/[facility]/ZIP Co de Phone Number [facility] [address] [place] [address], [facility] DTL [facility] [address] [place] [address] * Triglycerides (08/23/2023 3:42 AM CDT) Triglycerides [...] M.D. LAB BLOOD ADD-ON Performing Organization Address City/[facility]/ZIP Co de Phone Number [facility] [address] [place], [place] [phone] [place] [address] 200 [place] [address] * Magnesium (08/23/2023 3:42 AM CDT) Pathologist [facility] Magnesium, S 2.2 1.7 - 2.3 mg/dL 08/23/2023 4:50 AM CDT DTL Blood (Blood, Venous) 08/23/2023 3:42 AM CDT 08/23/2023 4:19 AM CDT Boubacar Brock M.D. LAB BLOOD ADD-ON [facility] [address] [place], [place] [phone] [place] [address] 200 [place] [address] * (ABNORMAL) Renal Function Panel (08/23/2023 3:42 [...] Brock M.D. LAB BLOOD ADD-ON [facility] [address] [place] [address], [facility] [address] [place] [address] * Heparin Anti-Xa Assay (08/23/2023 3:41 AM [...] LAB BLOOD NON ADD-ON Performing Organization Address City/[facility]/ZIP Co de Phone Number [facility] [address] [place] [address], [facility] [address] [place] [address] * Glucose, POCT (08/22/2023 11:38 PM CDT) Pathologist [facility] Glucose, POCT, B 117 70 - 140 mg/dL 08/23/2023 1:06 AM CDT PCLX Site Capillary 08/23/2023 1:06 AM CDT PCLX Last Intake NPO 08/23/2023 1:06 AM CDT PCLX Blood 08/22/2023 11:3 8 PM CDT 08/23/2023 1:06 AM CDT Unknown Provider LAB POCT ORDERABLES- MANUAL POC [facility] [address] [place] [address], [facility] PCLX [facility] POC [address] [place] [address] * Heparin Anti-Xa Assay (08/22/2023 10:14 PM [...] Boubacar Brock M.D. LAB BLOOD NON ADD-ON [facility] [address] [place] [address], [facility] [address] [place] [address] * CT Abdomen Pelvis without IV Contrast [...] NON ADD-ON Performing Organization Address [facility]/ZIP Co de Phone Number [facility] [address] [place] [address], [facility] [address] [place] [address] * Creatinine, Body Fluid (08/22/2023 3:30 PM [...] transport rates. All other fluids refer to www.[employer].com for further interpretive information. This test has been modified from the home organizer's instructions. Its performance characteristics were determined by [facility] in a manner consistent with CLIA requirements. This test has not been cleared or approved by the U.S. Food and Drug Administration. Fluid Type, Creatinine Fluid, Abdomen 08/22/2023 3:52 PM CDT DTL Fluid (Abdomen) 08/22/2023 3 :30 PM CDT 08/22/2023 6:36 PM CDT Corin Ring M.D. LAB BODY FLUIDS AND STOOLS ORDERABLES Performing Organization Address [facility]/ZIP Co de Phone Number [facility] [address] [place] [address], [place] DTL [facility] [address] [place] [address] * Transfuse Red Blood Cells : (08/22/2023 [...] of a right IJ vein single-lumen 4 South African tunneled PowerPICC ready for immediate use. NR [...] advanced into the IVC and a 4 South African dilator advanced over the wire and attached to a one-way stopcock. A suitable exit site in the right anterior chest was anesthetized and a small incision made. A 4 South African single-lumen PowerPICC was then tunneled from the [...] Wireadvanced into the IVC and a 4 South African dilator advanced over the wire andattached to a one-way stopcock. A suitable exit site in the right anteriorchest was anesthetized and a small incision made. A 4 South African single-lumen PowerPICC was then tunneled fromthe skin exit site in the right anterior chest to the venotomy site.Catheter was cut at the 21 cm fortion and advanced through a peel-awaysheath. Catheter tip [...] of a right IJ vein single-lumen 4 South African tunneled PowerPICCready for immediate use. NR Kimi [...] M.D. LAB BLOOD ADD-ON Performing Organization Address City/[facility] Co de Phone Number [facility] [address] [place] [address], [facility] STMA [facility] [address] [place] [address] * Type and Screen (with Reflex Antibody ID) (08/22/2023 2:55 AM CDT) ABORh O Pos Not applicable 08/22/2023 3:25 AM CDT STRM Antibody Screen Negative Negative 08/22/2023 3:38 AM CDT STRM Type & Screen Expiration 08/25/2023 23:59 08/22/2023 3:25 AM CDT STRM Testing Location [place] DEFAULT 08/22/2023 3:07 AM CDT STRM Blood (Blood, Venous) 08/22/2023 2:55 AM CDT 08/22/2023 3:07 AM CDT Latisha Whitehead M.D. LAB BLOOD BANK T EST ORDERABLES Performing Organization Address [facility] Co de Phone Number [facility] [address] [place] [address], [facility] STRM [facility] [address] [place] [address] * (ABNORMAL) Comprehensive Metabolic Panel (08/22/2023 2:40 [...] CDT Latisha Whitehead M.D. LAB BLOOD ADD-ON [facility] [address] [place] [address], [facility] [address] [place] [address] * Heparin Anti-Xa Assay (08/22/2023 2:40 AM CDT) [facility] Heparin Anti-Xa, P 0.47 IU/mL 2023 3:28 [...] BLOOD NON AD D-ON Performing Organization Address City/[facility]/ZIP Co de Phone Number [facility] [address] [facility] [address] [place] [address] * (ABNORMAL) APTT (Activated Partial Thromboplastin Time) (08/22/2023 2:40 AM CDT) [facility] Activated Partial Thrombopl Time, P 64(H) 25 - 37 sec 08/22/2023 3:12 AM CDT [facility] Blood (Blood, Venous) 08/22/2023 2:40 AM CDT 08/22/2023 3:01 AM CDT Latisha Whitehead M.D. LAB BLOOD ADD-ON [facility] [address] [place] [address] * Triglycerides (08/21/2023 7:32 AM CDT) [facility] Triglycerides 98 mg/dL 08/21/2023 9:03 AM CDT DTL Comment: ----REFERENCE VALUE---- Normal: <150 mg/dL Borderline High: 150-199 mg/dL High: 200-499 mg/dL Very High: > or =500 mg/dL Fasting (8 HR or more) Unknown 08/21/2023 8:38 AM CDT DTL Blood (Blood, Venous) 08/21/2023 7:32 AM CDT 08/21/2023 8:38 AM CDT Lizette Harvey M.D. LAB BLOOD ADD-O N [facility] [address] [place] [address] * Phosphorus Inorganic (08/21/2023 7:32 AM CDT) Phosphorus (Inorganic), S 2.6 2.5 - 4.5 mg/dL 08/21/2023 9:03 AM CDT DTL Blood (Blood, Venous) 08/21/2023 7:32 AM CDT 08/21/2023 8:38 AM CDT Lizette Harvey M.D. LAB BLOOD ADD-O N [facility] [address] [place] [address] * Magnesium (08/21/2023 7:32 AM CDT) Magnesium, S 2.3 1.7 - 2.3 mg/dL 08/21/2023 9:03 AM CDT DTL Blood (Blood, Venous) 08/21/2023 7:32 AM CDT 08/21/2023 8:38 AM CDT Lizette Harvey M.D. LAB BLOOD ADD-O N Performing Organization Address City/[facility]/ZIP Co de Phone Number [facility] [address] [place] [address], [facility] DTL [facility] [address] [place] [address] * (ABNORMAL) Basic Metabolic Panel (08/21/2023 7:32 [...] Lizette Harvey M.D. LAB BLOOD ADD-O N [facility] [address] [place] [address], [facility] DTL [facility] [address] [place] [address] * (ABNORMAL) CBC without Differential (08/21/2023 7:32 [...] Lizette Harvey M.D. LAB BLOOD ADD-O N [address] [address], [facility] [address] [address] * Heparin Anti-Xa Assay (08/21/2023 7:32 AM [...] Boubacar Brock M.D. LAB BLOOD NON ADD-ON [facility] [address] [place] [address], [facility] [address] [place] [address] * (ABNORMAL) APTT (Activated Partial Thromboplastin Time) (08/21/2023 7:32 AM CDT) Activated Partial Thrombopl Time, P 49(H) 25 - 37 sec 08/21/2023 8:31 AM CDT DT Blood (Blood, Venous) 08/21/2023 7:32 AM CDT 08/21/2023 8:06 AM CDT Boubacar Brock M.D. LAB BLOOD ADD-ON Performing Organization Address City/[facility]/ZIP Co de Phone Number [facility] [address] [place] [address], [facility] [address] [place] [address] * Place peripherally inserted central catheter (PICC) [...] the atrophic right kidney. Lizette Harvey M.D. [facility] CT PROCEDUR ES * [...] M.D. LAB BLOOD ADD-ON Performing Organization Address City/[facility]/ZIP Co de Phone Number [facility] [address] [place] [address], [facility] DTL [facility] [address] [place] [address] * (ABNORMAL) CBC without Differential (08/20/2023 3:19 [...] CDT Paula Hernandez M.D. LAB BLOOD ADD-ON [facility] [address] [place] [address], [facility] DTL [facility] [address] [place] [address] * (ABNORMAL) APTT (Activated Partial Thromboplastin Time) (08/20/2023 3:19 AM CDT) Activated Partial Thrombopl Time, P 52(H) 25 - 37 sec 08/20/2023 4:33 AM CDT DTL Blood (Blood, Venous) 08/20/2023 3:19 AM CDT 08/20/2023 4:10 AM CDT Boubacar Brock M.D. LAB BLOOD ADD-ON [facility] [address] [place] [address], [facility] [address] [place] [address] * (ABNORMAL) APTT (Activated Partial Thromboplastin Time) (08/19/2023 10:57 AM CDT) [facility] Activated Partial Thrombopl Time, P 54(H) 25 - 37 sec 08/19/2023 11:44 AM CDT DT Blood (Blood, Venous) 08/19/2023 10:57 AM CDT 08/19/2023 11:26 AM CDT Boubacar Brock M.D. LAB BLOOD ADD-ON Performing Organization Address City/[facility]/ZIP Co de Phone Number [facility] [address] [place] [address], [facility] [address] [place] [address] * (ABNORMAL) APTT (Activated Partial Thromboplastin Time) (08/19/2023 4:51 AM CDT) Pathologist [facility] Activated Partial Thrombopl Time, P 59(H) 25 - 37 sec 08/19/2023 5:53 AM CDT DT Blood (Blood, Venous) 08/19/2023 4:51 AM CDT 08/19/2023 5:36 AM CDT Boubacar Brock M.D. LAB BLOOD ADD-ON [facility] [address] [place], [place] [address] [address] [place] [address] * (ABNORMAL) APTT (Activated Partial Thromboplastin Time) (08/18/2023 10:03 PM CDT) Pathologist [facility] Activated Partial Thrombopl Time, P 63(H) 25 - 37 sec 08/18/2023 10:41 PM CDT DTL Blood (Blood, Venous) 08/18/2023 10:03 PM CDT 08/18/2023 10:19 PM CDT Boubacar Brock M.D. LAB BLOOD ADD-ON Performing Organization Address City/[facility]/ZIP Co de Phone Number [facility] [address] [place], [place] [id number] [place] [address] 200 [place] [address] * (ABNORMAL) APTT (Activated Partial Thromboplastin Time) (08/18/2023 2:50 PM CDT) [facility] Activated Partial Thrombopl Time, P 64(H) 25 - 37 sec 08/18/2023 3:25 PM CDT DT Blood (Blood, Venous) 08/18/2023 2:50 PM CDT 08/18/2023 3:07 PM CDT Boubacar Brock M.D. LAB BLOOD ADD-ON [facility] [address] [place], [place] [id number] [place] [address] 200 [place] [address] * (ABNORMAL) APTT (Activated Partial Thromboplastin Time) (08/18/2023 6:42 AM CDT) Pathologist [facility] Activated Partial Thrombopl Time, P 61(H) 25 - 37 sec 08/18/2023 7:28 AM CDT DTL Blood (Blood, Venous) 08/18/2023 6:42 AM CDT 08/18/2023 7:04 AM CDT Boubacar Brock M.D. LAB BLOOD ADD-ON [facility] [address] [address] * (ABNORMAL) APTT (Activated Partial Thromboplastin Time) (08/17/2023 11:04 PM CDT) [facility] Activated Partial Thrombopl Time, P 40(H) 25 - 37 sec 08/17/2023 11:46 PM CDT DTL Blood (Blood, Venous) 08/17/2023 11:04 PM CDT 08/17/2023 11:31 PM CDT Boubacar Brock M.D. LAB BLOOD ADD-ON Performing Organization Address City/[facility]/ZIP Co de Phone Number [facility] [address] [place], [place] [address] [place] [address] * US Lower Extremity Veins Bilateral (08/17/2023 [...] and management can be found on the SocialTagg site. Link [email or web address] Findings discussed with ??Tayler Greenwood, ?? ([id number]) on 08/17/2023 7:11 PM. Procedure Note Jj [...] management can be found on theAskMayoExpert site. [email or web address] Findings discussed with Tayler Greenwood MD ([id number]) on 08/17/2023 7:11 PM. IMPRESSION: 1. 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 2. No acute left-sided DVT. Corin Ring M.D. IMG US PROCEDURES * APTT (Activated Partial Thromboplastin Time) (08/17/2023 4:56 PM CDT) [facility] Activated Partial Thrombopl Time, P 29 25 - 37 sec 08/17/2023 5:10 PM CDT [facility] Blood (Blood, Venous) 08/17/2023 4:56 PM CDT 08/17/2023 5:00 PM CDT Paula Hernandez M.D. LAB BLOOD ADD-ON [facility] [address] [place] [address], [facility] [address] [place] [address] * ECG 12 Lead (08/16/2023 9:43 PM CDT) [facility] Ventricular Rate ECG/Min 134 BPM MUSE HI Interval 136 ms MUSE QRSD Interval 76 ms MUSE QT Interval 298 ms MUSE QTC Interval 445 ms MUSE P Honeydew 29 degrees MUSE R Honeydew -6 degrees MUSE T Wave Honeydew 21 degrees MUSE 08/16/2023 9:43 PM CDT [...] CDT Geneva Azar M.D. LAB BLOOD ADD-ON [facility] [address] [place] [address], [facility] DTL [facility] [address] [place] [address] * (ABNORMAL) Basic Metabolic Panel (08/16/2023 9:40 [...] CDT Geneva Azar M.D. LAB BLOOD ADD-ON [facility] [address] [place] [address], [facility] DTL [facility] [address] [place] [address] * Transfuse Red Blood Cells : (08/16/2023 [...] BLOOD ADD-ON Performing Organization Address [facility] Co de Phone Number [facility] [address] [place] [address], [facility] [address] [place] [address] * (ABNORMAL) CBC without Differential (08/16/2023 3:10 [...] BLOOD ADD-ON Performing Organization Address [facility]/ZIP Co de Phone Number [facility] [address] [place] [address], [facility] [address] [place] [address] * (ABNORMAL) CBC with Differential, Blood (08/15/2023 [...] Carlos Alberto Henson M.D. LAB BLOOD ADD-ON [facility] [address] [place] [address], [facility] DTL [facility] [address] [place] [address] [facility] [address] [place] [address] * DX Abdomen 1 View (08/15/2023 1:19 [...] CDT 08/15/2023 12:03 PM CDT Rae Gonzalez ALUMINUM FABRICATION SUPERVISOR, LIQUID SUGAR FORTIFIER, DNAP LAB BLOO D NON ADD-ON [facility] [address] [place] [address], [facility] [address] [place] [address] * Lactate, B - Intra-op (08/15/2023 11:56 AM CDT) Lactate, B 1.1 0.5 - 2.2 mmol/L 08/15/2023 12:06 PM CDT STMA Blood (Blood, Venous) 08/15/2023 11:56 AM CDT 08/15/2023 12:03 PM CDT Hayde Song M.D. LAB BLOOD NON ADD-O N [facility] [address] [place] [address], [facility] [address] [place] [address] * (ABNORMAL) Glucose, Whole Blood (08/15/2023 11:56 AM CDT) Glucose 144(H) 70 - 140 mg/dL 08/15/2023 12:06 PM CDT STMA Blood (Blood, Arterial Line) 08/15/2023 11:56 AM CDT 08/15/2023 12:03 PM CDT Hayde Song M.D. LAB BLOOD ADD-ON Performing Organization Address City/[facility]/ZIP Co de Phone Number [facility] [address] [place] [address], [facility] [address] [place] [address] * Potassium, Blood (08/15/2023 11:56 AM CDT) Potassium, B 4.3 3.6 - 5.2 mmol/L 08/15/2023 12:07 PM CDT [facility] Blood (Blood, Arterial Line) 08/15/2023 11:56 AM CDT 08/15/2023 12:03 PM CDT Hayde Song M.D. LAB BLOOD NON ADD-O N [facility] [address] [place] [address], [facility] [address] [place] [address] * Sodium, B (08/15/2023 11:56 AM CDT) Sodium, B 135 135 - 145 mmol/L 08/15/2023 12:06 PM CDT STMA Blood (Blood, Arterial Line) 08/15/2023 11:56 AM CDT 08/15/2023 12:03 PM CDT Hayde Song M.D. LAB BLOOD NON ADD-O N [facility] [address] [place] [address], [facility] [address] [place] [address] * (ABNORMAL) Calcium, Ionized (08/15/2023 11:56 AM CDT) Calcium, Ionized, B 4.53(L) 4.65 - 5.30 mg/dL 08/15/2023 12:07 PM CDT STMA Blood (Blood, Arterial Line) 08/15/2023 11:56 AM CDT 08/15/2023 12:03 PM CDT Hayde Song M.D. LAB BLOOD NON ADD-O N Performing Organization Address City/[facility]/ZIP Co de Phone Number [facility] [address] [place] [address], [place] [address] * (ABNORMAL) Blood Gas with Coox, Arterial [...] BLOOD NON ADD-O N Performing Organization Address City/[facility]/ZIP Co de Phone Number [facility] [address] [place] [address], [facility] STMA [facility] [address] [place] [address] * FL Fluoro Less Than 1 Hour (08/15/2023 11:22 AM CDT) Narrative [facility] - 08/15/2023 11:24 AM CDT This exam does not require a radiologist review or interpretation. Please refer to the patient's medical record on this date for clinical details. Boubacar Brock M.D. IMG FLUOROSCOPY PROC EDURES Performing Organization Address City/[facility]/ZIP Co de Phone Number 152 [facility] * Patient Status (08/15/2023 10:28 AM CDT) Temperature 36.1 37.0 deg C 08/15/2023 10:28 AM CDT STMA FIO2 0.55 0.21=AIR 08/15/2023 10:28 AM CDT ST[facility] Blood 08/15/2023 10:2 8 AM CDT 08/15/2023 10:28 AM CDT Rae Gonzalez ALUMINUM FABRICATION SUPERVISOR, LIQUID SUGAR FORTIFIER, DNAP LAB BLOO D NON ADD-ON Performing Organization Address City/[facility]/ZIP Co de Phone Number [facility] [address] [place] [address], [facility] [address] [place] [address] * Lactate, B - Intra-op (08/15/2023 10:28 AM CDT) Lactate, B 1.1 0.5 - 2.2 mmol/L 08/15/2023 10:30 AM CDT [facility] Blood (Blood, Venous) 08/15/2023 10:28 AM CDT 08/15/2023 10:28 AM CDT Hayde Song M.D. LAB BLOOD NON ADD-O N [facility] [address] [place] [address], [facility] [address] [place] [address] * Glucose, Whole Blood (08/15/2023 10:28 AM CDT) Glucose 134 70 - 140 mg/dL 08/15/2023 10:30 AM CDT [facility] Blood (Blood, Arterial Line) 08/15/2023 10:28 AM CDT 08/15/2023 10:28 AM CDT Hayde Song M.D. LAB BLOOD ADD-ON [facility] [address] [place] [address], [facility] [address] [place] [address] * Potassium, Blood (08/15/2023 10:28 AM CDT) Potassium, B 4.1 3.6 - 5.2 mmol/L 08/15/2023 10:31 AM CDT STMA Blood (Blood, Arterial Line) 08/15/2023 10:28 AM CDT 08/15/2023 10:28 AM CDT Hayde Song M.D. LAB BLOOD NON ADD-O N [facility] [address] [place] [address] * Sodium, B (08/15/2023 10:28 AM CDT) Sodium, B 135 135 - 145 mmol/L 08/15/2023 10:30 AM CDT [facility] Blood (Blood, Arterial Line) 08/15/2023 10:28 AM CDT 08/15/2023 10:28 AM CDT Hayde Song M.D. LAB BLOOD NON ADD-O N Performing Organization Address City/[facility] Co de Phone Number [facility] [address] [place] [address] * (ABNORMAL) Calcium, Ionized (08/15/2023 10:28 AM CDT) Calcium, Ionized, B 4.25(L) 4.65 - 5.30 mg/dL 08/15/2023 10:31 AM CDT [facility] Blood (Blood, Arterial Line) 08/15/2023 10:28 AM CDT 08/15/2023 10:28 AM CDT Hayde Song M.D. LAB BLOOD NON ADD-O N [facility] [address] [place] [address] * (ABNORMAL) Blood Gas with Coox, Arterial [...] Song M.D. LAB BLOOD NON ADD-O N [facility] [address] [place] [address], [facility] [address] [place] [address] * Bacteria / Yomaira Culture, Blood #2 (08/15/2023 3:33 AM CDT) Bacteria/Leyla da Culture, Blood No growth after 5 days of incubation. 08/20/2023 6:02 AM CDT DTL Blood (Blood, Peripheral Draw) 08/15/2023 3:33 AM CDT 08/15/2023 5:58 AM CDT Comment:Specimen Source Site : Blood Narrative [facility] - 08/20/2023 6:02 AM CDT Received Bactec aerobic and Bactec anaerobic bottles Carlos Alberto Henson M.D. LAB MICROBIOLOGY - G ENERAL ORDERABLES [facility] [address] [place] [address], [facility] DTL [facility] [address] [place] [address] * (ABNORMAL) Basic Metabolic Panel (08/15/2023 3:31 AM CDT) [facility] Potassium, S 4.0 3.6 - 5.2 mmol/L [...] Jakob De Paz M.D. LAB BLOOD ADD-ON [facility] [address] [place] [address], [facility] [address] [place] [address] * Bacteria / Yomaira Culture, Blood #1 (08/15/2023 3:31 AM CDT) [facility] Bacteria/Leyla da Culture, Blood No growth after 5 days of incubation. 08/20/2023 6:02 AM CDT DTL Blood (Blood, Peripheral Draw) 08/15/2023 3:31 AM CDT 08/15/2023 5:59 AM CDT Comment:Specimen Source Site : Blood Carlos Alberto Henson M.D. LAB MICROBIOLOGY - [facility] ORDERABLES [facility] [address] [place] [address], [facility] [address] [place] [address] * (ABNORMAL) CBC with Differential, Blood (08/15/2023 3:30 AM CDT) [facility] Hemoglobin 9.5(L) 13.2 - 16.6 g/dL 08/15/2023 [...] Carlos Alberto Henson M.D. LAB BLOOD ADD-ON [facility] [address] [place] [address], [facility] DTL [facility] [address] [place] [address] [facility] [address] [place] [address] * (ABNORMAL) CBC with Differential, Blood (08/14/2023 8:08 PM CDT) [facility] Hemoglobin 9.8(L) 13.2 - 16.6 g/dL 08/14/2023 [...] Carlos Alberto Henson M.D. LAB BLOOD ADD-ON [facility] [address] [place] [address], [facility] STMA [facility] [address] [place] [address] [facility] [address] [place] [address] * Transfuse Red Blood Cells : , [...] with Differential, Blood (08/14/2023 3:18 AM CDT) [facility] Hemoglobin 7.6(L) 13.2 - 16.6 g/dL 08/14/2023 [...] Carlos Alberto Henson M.D. LAB BLOOD ADD-ON [facility] [address] [place] [address], [facility] STMA [facility] [address] [place] [address] [facility] [address] [place] [address] * (ABNORMAL) Basic Metabolic Panel (08/14/2023 3:18 [...] Carlos Alberto Henson M.D. LAB BLOOD ADD-ON [facility] [address] [place] [address], [place] DTL [facility] [address] [place] [address] * Type and Screen (with Reflex Antibody ID) (08/13/2023 7:35 PM CDT) Pathologist [facility] ABORh O Pos Not applicable 08/13/2023 7:58 PM CDT STRM Antibody Screen Negative Negative 08/13/2023 8:13 PM CDT STRM Type & Screen Expiration 08/16/2023 23:59 08/13/2023 7:58 PM CDT STRM Testing Location [place] DEFAULT 08/13/2023 7:39 PM CDT STRM Blood (Blood, Venous) 08/13/2023 7:35 PM CDT 08/13/2023 7:39 PM CDT Carlos Alberto Henson M.D. LAB BLOOD BANK TEST ORDERABLES Performing Organization Address [facility]/ZIP Co de Phone Number [facility] [address] [place] [address], [facility] STRFormerly named [facility] [address] [place] [address] * (ABNORMAL) Bacteria / Yomaira Culture, Blood #1 (08/13/2023 7:35 PM CDT) [facility] Bacteria/Cand jessica Culture, Blood ESCHERICHIA COLI Growth after 11 Hours (A) 08/16/2023 11:17 AM CDT DTL Comment: 3 of 3 Bottles, Susceptibilities performed on another specimen [id number] Blood (Blood, Peripheral Draw) 08/13/2023 7:35 PM CDT 08/13/2023 8:15 PM CDT Comment:Specimen Source Site : Blood Carlos Alberto Henson M.D. LAB MICROBIOLOGY - G ENERAL ORDERABLES [facility] [address] [place] [address], [facility] DTL [facility] [address] [place] [address] * ECG 12 Lead (08/13/2023 7:02 PM CDT) [facility] Ventricular Rate ECG/Min 128 BPM MUSE HI Interval 138 ms MUSE QRSD Interval 64 ms MUSE QT Interval 304 ms MUSE QTC Interval 443 ms MUSE P Honeydew 45 degrees MUSE R Honeydew 34 degrees MUSE T Wave Honeydew 46 degrees MUSE 08/13/2023 7:02 PM CDT [...] CDT Comment:Specimen Source Site : Blood Narrative [facility] - 08/16/2023 11:17 AM CDT [...] M.D. LAB MICROBIOLOGY - G ENERAL ORDERABLES [facility] [address] [place] [address], [facility] [place] [address] * Magnesium (08/13/2023 5:27 PM CDT) Magnesium, S 1.9 1.7 - 2.3 mg/dL 08/13/2023 6:12 PM CDT DTL Blood (Blood, Venous) 08/13/2023 5:27 PM CDT 08/13/2023 5:58 PM CDT Carlos Alberto Henson M.D. LAB BLOOD ADD-ON [facility] [address] [facility] [address] [place] [address] * (ABNORMAL) Hepatic Function Panel (08/13/2023 5:27 [...] Alberto Henson M.D. LAB BLOOD ADD-ON [address] [address], [facility] [address] [place] [address] * (ABNORMAL) Basic Metabolic Panel (08/13/2023 5:27 [...] Carlos Alberto Henson M.D. LAB BLOOD ADD-ON [place] [address] [place] [address], [facility] [address] [place] [address] * Prothrombin Time (PT) (08/13/2023 5:27 PM [...] Carlos Alberto Henson M.D. LAB BLOOD ADD-ON [facility] [address] [place] [address], [facility] STMA [facility] [address] [place] [address] * (ABNORMAL) CBC with Differential, Blood (08/13/2023 5:27 PM CDT) [facility] Hemoglobin 10.0(L) 13.2 - 16.6 g/dL 08/13/2023 [...] M.D. LAB BLOOD ADD-ON Performing Organization Address City/[facility]/ZIP Co de Phone Number [facility] [address] [place] [address], [facility] STMA [facility] [address] [place] [address] DHPM [facility] [address] [place] [address] * (ABNORMAL) Dipstick, Urine (08/13/2023 5:07 PM [...] M.D. LAB URINE ORDERABLES Performing Organization Address City/[facility]/ZIP Co de Phone Number [facility] [address] [place] [address], [facility] DTL [facility] [address] [place] [address] * Osmolality, Urine (08/13/2023 5:07 PM CDT) Osmolality, U 351 150 - 1150 mOsm/kg 08/13/2023 7:46 PM CDT DTL Urine 08/13/2023 5:07 PM CDT 08/13/2023 5:45 PM CDT Carlos Alberto Henson M.D. LAB URINE ORDERABLES [facility] [address] [place] [address], [facility] [address] [place] [address] * (ABNORMAL) Microscopic Manual (08/13/2023 5:07 PM [...] M.D. LAB URINE ORDERABLES Performing Organization Address City/[facility]/ZIP Co de Phone Number [facility] [address] [place] [address], [facility] [address] [place] [address] * pH, Random, Urine (08/13/2023 5:07 PM CDT) pH, Random, U 7.0 4.5 - 8.0 08/13/2023 7:46 PM CDT DTL Urine 08/13/2023 5:07 PM CDT 08/13/2023 5:45 PM CDT Carlos Alberto Henson M.D. LAB URINE ORDERABLES [facility] [address] [place] [address], [facility] [address] [place] [address] * (ABNORMAL) Bacterial Culture, Aerobic + Susceptibility, [...] M.D. LAB MICROBIOLOGY - G ENERAL ORDERABLES [facility] [address] [place] [address], [place] DTL [facility] [address] [place] [address] * (ABNORMAL) Urinalysis, with Microscopic: Urine, Midstream [...] CDT DTL Predicted 24 [place] [id number](H) <229 mg/24 h 08/13/2023 8:50 PM CDT DTL Predicted Range [id number] mg/24 h 08/13/2023 8:50 PM CDT DTL Comment Micro done on <2.5 mL 08/13/2023 7:55 PM CDT DTL Urine (Urine, Midstream) 08/13/2023 5:07 PM CDT 08/13/2023 5:44 PM CDT Carlos Alberto Henson M.D. LAB URINE ORDERABLES [facility] [address] [place] [address], [place] DTL [facility] [address] [place] [address] * Interpretation of Outside CT Abdomen and [...] supply. 08/17/23: Id'ed by [facility]ISI. [facility] Rx# [id number], filled 07/22/23. HAZARDOUS - Handle with care. Swallow whole. Do NOT crush, chew or open capsule. Given 08/26/2023 9:12 AM CDT 120 mg Given 08/25/2023 9:08 AM CDT 120 mg Given 08/24/2023 9:12 AM CDT 120 mg Lactated Ringer's 1.5 mL/kg/hr ? 75 kg Lagrange weight (112.5 mL/hr, rounded to 113 mL/hr), intravenous, Continuous, Starting on Tue08/22/23 at 1030, Conditional Phase Pre-Gastrografin Administration. (Rate = 1.5 mL/kg/hr ideal body weight) Lactated Ringer's 0.75 mL/kg/hr ? 75 kg Lagrange weight (56.25 mL/hr, rounded to 56.3 mL/hr), [...] supply. 08/17/23: Id'ed by SISI. [facility] Rx# [id number], filled 07/22/23. HAZARDOUS - Handle with care. Swallow whole. Do NOT crush, chew or open capsule. 09 (Given - Provider: Tayler Forrest R.N. - Comment: Pat Murray, -2nd RN) 0908 (Given - Provider: Tayler Forrest R.N. - Comment: Pt 's own med from home) 911 (Given - Provider: Lupe Valdez R.N.) fat emulsion xab-yam-ldyvz & fish oil infusion 50 g (SMOFlipid) [...] Lactated Ringer's 1.5 mL/kg/hr ? 75 kg Lagrange weight (112.5 mL/hr, rounded to 113 mL/hr), intravenous, Continuous, Starting on Tue08/22/23 at 1030, Conditional Phase Pre-Gastrografin Administration. (Rate = 1.5 mL/kg/hr ideal body weight) Lactated Ringer's 0.75 mL/kg/hr ? 75 kg Lagrange weight (56.25 mL/hr, rounded to 56.3 mL/hr), [...] [id number] documented in this encounter Care Teams Veneer Puller Relationship Specialty Start Date End Date Elsewhere, Pcp PCP - General Internal Medicine 08/13/23 documented as of this encounter
--- OUTSIDE RECORDS SUMMARY | 2023-09-26 14:40 | XMS_ITS | Clinical Summary ---
Author Organization [employer] ([place]) [facility] Address [place], [place] [address] Care Team Providers Care Air Plant Engineer Name Role Phone Cesar Mccollum MD Primary Care Provider Nicola Mcgarry MD Unavailable [phone] Mireya Tan MD Unavailable [phone] Allergies No known active allergies Medications [...] type, unspecified whether angina present, unspecified whether [place] or transplanted heart Take 1 Tablet (75 [...] 7 days. 14 Tablet 09/21/2023 09/28/2023 Active levoFLOXacin (LEVAQUIN) 250 mg tabletIndications:Com plicated UTI (urinary tract infection) Take 1 Tablet (250 mg) by mouth once daily for 5 days. 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 Bladder mass 02/29/2020 04/30/2020 Hematuria 02/29/2020 03/05/2020 Acute deep vein thrombosis (DVT) 02/29/2020 11/20/2020 S/P coronary angioplasty 11/03/2016 Chest pain 09/15/2016 03/05/2020 Elevated prostate specific antigen (PSA) 10/06/2010 03/05/2020 Hip arthritis 10/06/2010 03/05/2020 Colon polyp 07/15/2010 PATRICE (acute kidney injury) Obstructive uropathy 020 Encounters Date Type Department Care Team Description 09/23/2023 Telephone [facility] [address] [place] [address] Cesar Mccollum MD Results 09/22/2023 10:30 AM CDT Orders Only [address] [address] Lab, [place] [facility] 09/22/2023 9:50 AM CDT Nurse/Clinic Staff Only [address] [address] Dressing Change 09/22/[address] [address] Cesar Mccollum MD Results 09/22/2023 Travel 09/21/2023 3:20 PM CDT Nurse/Clinic Staff Only [facility] [address] [place] [address] Procedure (UA collection from jon and neph tube) 09/21/2023 Telephone [facility] [place] [address] Letty Mear MD 09/20/2023 2:15 PM CDT Ancillary Procedure [address] [address] 09/20/2023 1:00 PM CDT Office Visit [address] [address] Letty Mera MD Hospital F/U (Admission Date: 09/09/2023 Discharge Date: 09/15/23); Wound Check (sacrum & neph tube site. ); Home Care; Concerns (Feels like catheter is falling out - pt states that it is leaking. ) 09/20/2023 Travel 09/15/2023 Transcribe Orders [facility] [address] [place] [address] Provider, Non-[facility] 09/13/2023 Telephone [facility] [address] [place] [address] Cesar Mccollum MD Procedure (child protective services social worker) 08/31/2023 Transcribe Orders [facility] [address] [place] [address] Senthil Alvarez MD 08/30/2023 Orders Only [facility] Scanner 1 scan: (1-Ord) [facility], 08/30/2023 08/23/2023 Transcribe Orders [facility] [address] [place] [address] Provider, Non-[facility] 08/13/2023 Orders Only [facility] Scanner 1 scan: (1-Ord) [facility], ABDOMEN/PELVIS W/O, 08/13/2023 08/04/2023 11:30 AM CDT Office Visit [facility] [address] [place] [address] Sandip Garcia, AuD Hearing Aid 08/04/2023 Travel 08/02/2023 2:30 PM CDT Orders Only [facility] [address] [place] [address] Lab, [place] 08/02/2023 Travel 08/02/2023 Orders Only [facility] [address] [place] [address] Cesar Mccollum MD <No scans attached> 07/21/2023 8:55 AM CDT Office Visit [facility] [address] [place] [address] Cesar Mccollum MD Medicare ANNUAL (subsequent) Visit (83 year old); Post Procedure (Uteretal stent exchange) 07/21/2023 Travel 07/18/2023 10:00 AM CDT Anesthesia Event [facility] [address] [place] [address] Leonardo Frankel MD Purdy, Adam John, GAVIN 07/18/2023 9:45 AM CDT - 07/18/2023 10:54 AM CDT Surgery [facility] [address] [place] [address] Nicola Mcgarry MD CYSTOSCOPY EXCHANGE, RIGHT URETERAL STENT 07/18/2023 7:41 AM CDT - 07/18/2023 3:26 PM CDT Hospital Encounter [facility] [address] [place] [address] Nicola Mcgarry MD Other hydronephrosis (Primary Dx) Discharge Disposition: Home Self Care 07/18/2023 Travel 07/15/2023 8:20 AM CDT Preop Visit [facility] [address] [place] [address] Shannan Bain, Pre-Op Exam (/BLADDER SURGERY [facility] DR. MCGARRY 07/18/23) 07/15/2023 Travel 07/11/2023 Orders Only [facility] Scanner 1 scan: (1-Ord) [facility] CLINICAL [facility] REPORT, 07/11/2023 07/06/2023 Telephone [facility] [address] [place] [address] Cesar Mccollum MD Follow Up 07/05/2023 4:00 PM CDT Orders Only [facility] [address] [place] [address] Lab, [place] 07/05/2023 Travel 07/05/2023 Orders Only [facility] [place] [address] Cesar Mccollum MD <No scans attached> 07/01/2023 8:30 AM CDT Ancillary Procedure [facility] [address] [place] [address] 07/01/2023 Travel from Last 3 Months Immunizations Name Administration Dates Next Due COVID-19 Vaccine Spikevax (M oderna 50mcg/0.5mL) 12YO+ 5822-0930 Formula PF 07/21/2023,03/08/2023 COVID-19 vaccine (Pfizer-Bio NTech 30mcg/0.3mL) 12YO+ BIVALENT PFCLAUDIA 09/13/2022,01/28/2022 COVID-19 vaccine (GLG NTech 30mcg/0.3mL) 12YO+ DAYRON-SUCROSE PF, MDV 08/26/2021 COVID-19 vaccine (GLG NTech 30mcg/0.3mL) PF, MDV 01/13/2021,06/17/2020,2020 Influenza, Inactivated [...] CDT Office Visit [facility] [address] [place] [address] Cesar Mccollum MD [address] [place] [address] 10/04/2023 1:00 PM CDT Office Visit [facility] [address] [place] [address] Regan Miller MD [address] [place] [address] Health Maintenance Due Date Last [...] Completed 4 Medical Devices Implanted Type Area Violin Tutor Device Identifier Shelf Expiration Date Model / Serial / Lot Stent Uret [id number] Contour - [id number] Implanted:Qty: 1 on 07/18/2023 by Nicola Mcgarry MD at [facility] Right: Ureter [facility] 02/27/2026 [id number] / / [id number] Procedures Procedure Name Priority Date/Time Associated Diagnosis [...] Routine 07/01/2023 8:44 AM CDT Unspecified hydronephrosis from Last 3 Months Results * (ABNORMAL) CBC WITH AUTO DIFFERENTIAL (09/22/2023 10:39 AM CDT) Only the most recent of2 resultswithin the time period is included. WHITE BLOOD COUNT 11.0 4.5 - 11.0 thou/cu mm 09/22/2023 10:46 AM CDT [facility] RED BLOOD COUNT 2.81(L) 4.30 - 5.90 mil/cu mm 09/22/2023 10:46 AM CDT [facility] HEMOGLOBIN 8.0(L) 13.5 - 17.5 g/dL 09/22/2023 10:46 AM CDT [facility] HEMATOCRIT 25.2(L) 37.0 - 53.0 % 09/22/2023 10:46 AM CDT [facility] MCV 90 80 - 100 fL 09/22/2023 10:46 AM CDT [facility] MCH 28.5 26.0 - 34.0 pg 09/22/2023 10:46 AM CDT [facility] MCHC 31.7(L) 32.0 - 36.0 g/dL 09/22/2023 10:46 AM CDT [facility] RDW 17.5(H) 11.5 - 15.5 % 09/22/2023 10:46 AM CDT [facility] PLATELET COUNT 466(H) 140 - 440 thou/cu mm 09/22/2023 10:46 AM CDT [facility] MPV 8.9 6.5 - 11.0 fL 09/22/2023 10:46 AM CDT [facility] % NEUT 86.3 % 09/22/2023 10:46 AM CDT [facility] % LYMPH 6.6 % 09/22/2023 10:46 AM CDT [facility] % MONO 5.8 % 09/22/2023 10:46 AM CDT [facility] % EOS 1.2 % 09/22/2023 10:46 AM CDT [facility] % BASO 0.1 % 09/22/2023 10:46 AM CDT [facility] ABSOLUTE NEUTROPHILS 9.5(H) 1.7 - 7.0 thou/cu mm 09/22/2023 10:46 AM CDT [facility] ABSOLUTE LYMPHOCYTES 0.7(L) 0.9 - 2.9 thou/cu mm 09/22/2023 10:46 AM CDT [facility] ABSOLUTE MONOCYTES 0.6 <0.9 thou/cu mm 09/22/2023 10:46 AM CDT [facility] ABSOLUTE EOSINOPHILS 0.1 <0.5 thou/cu mm 09/22/2023 10:46 AM CDT [facility] ABSOLUTE BASOPHILS 0.0 <0.3 thou/cu mm 09/22/2023 10:46 AM CDT [facility] Blood BLOOD SPECIMEN / Unknown Venipuncture / Unknown 09/22/2023 10:39 AM CDT 09/22/2023 10:43 AM CDT Letty Mera MD HEMATOLOGY [facility] [address] [place] [address], * (ABNORMAL) URINE CULTURE (09/21/2023 4:40 PM CDT) Only the most recent of2 resultswithin the time period is included. CULTURE RESULT(A) 09/24/2023 9:54 AM CDT [facility] CULTURE >100,000 CFU/mL Shirin albicans 09/24/2023 9:54 AM CDT [facility] Urine URINE SPECIMEN / Unknown Non-Blood / Unknown 09/21/2023 4:40 PM CDT 09/21/2023 4:41 PM CDT Letty Mera MD MICROBIOLO [facility] [address] [place] [address], [place] * XR CHEST 2 VIEWS PA [...] 2:26 PM CDT Cesar Mccollum MD HEMATOLOGY [facility] [address] [place] [address], [place] [phone] * HEMOGLOBIN A1C SCREENING (07/21/2023 9:58 AM CDT) HEMOGLOBIN A1C SCREENING 5.4 <=6.4 % 07/21/2023 5:56 PM CDT [facility] Blood BLOOD SPECIMEN / Unknown Venipuncture / Unknown 07/21/2023 9:58 AM CDT 07/21/2023 10:00 AM CDT Narrative [facility] - 07/21/2023 5:56 PM CDT ? (<5.7%) ?Normal ? (5.7% to 6.4%) ? Indicates prediabetes ? (>=6.5%) ? Confirms diabetes Falsely low levels may be seen with: Recent Transfusion, Recent Significant Blood Loss, Hemolytic Diseases, or Falsely elevated levels may be seen with: Untreated Anemias, Splenectomy Cesar Mccollum MD CHEMISTRY [facility] [address] [place] [address], * XR RETROGRADE PYELOGRAM W/WO KUB (07/18/2023 [...] - 145 mmol/L 07/15/2023 5:14 PM CDT [facility] POTASSIUM 4.7 3.5 - 5.1 mmol/L 07/15/2023 5:14 PM CDT [facility] CHLORIDE 106 98 - 107 mmol/L 07/15/2023 5:14 PM T [facility] CO2,TOTAL 24 22 - 29 mmol/L 07/15/2023 5:14 PM CDT [facility] ANION GAP 11 5 - 18 07/15/2023 5:14 PM CDT [facility] GLUCOSE 91 70 - 99 mg/dL 07/15/2023 5:14 PM CDT [facility] CALCIUM 9.3 8.8 - 10.2 mg/dL 07/15/2023 5:14 PM T [facility] BUN 22 8 - 23 mg/dL 07/15/2023 5:14 PM T [facility] CREATININE 1.32(H) 0.70 - 1.20 mg/dL 07/15/2023 5:14 PM T [facility] BUN/CREAT RATIO 17 10 - 20 5:14 PM T [facility] eGFR 53(L) >90 mL/min/1.7 3m2 07/15/2023 5:14 PM T [facility] Comment:As of 2021, eG [...] 9:40 AM CDT Shannan Bain DO CHEMISTRY [facility] [address] 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 [phone] Surgery - Urology 03/13/20 Mireya Tan MD [address] [place] [phone] Hematology - Pathology 03/13/20
--- OUTSIDE RECORDS SUMMARY | 2023-09-26 14:40 | XMS_ITS | Data Portability ---
Author Organization [facility] Address [address] [place] [address] Care Team Providers Care Bow Maker Custom Name Role Phone MASOUD SAUER Primary Care Provider [phone] Assessment No assessment recorded. Plan of Treatment Reminders Order Date Submit Date Provider Last Modified By Organization Details Last Modified Time Details Appointments None recorded . Lab urinalys is, dipstick 2023 024 [email or web address], [address] [place], [address], 4 15:08:54 culture, urine 2023 024 [facility], [address], [place], [address], 4 10:11:11 Referral None recorded . Procedures None recorded . Surgeries cystosco py with ureteral stent exchange (SURG) 2021 022 Not available 2 15:46:30 cystosco py with ureteral stent exchange (SURG) 2021 022 [email or web address] Not available 2 16:50:47 Imaging None recorded . Medication Orders Bactrim DS 800 mg-160 mg tablet 2023 024 [email or web address] [id number], [address] [place], [place], [phone], 4 16:19:28 Myrbetri q 50 mg tablet,e xtended release 2021 022 [id number], [address] , [place], [place], [phone], 17:50:02 Patient TargetsNo targets recorded. Patient InstructionsNo instructions recorded. Reason for Referral None Reported. Results Created Date Observation Date Name Description Value Unit Range Abnormal Flag LastModifiedBy Organization Detail LastModifiedTime 06/23/1906/23/2023 URINE CULTU RE final report MICROB IOLOGY RESULT S Not Available [facility] [address], [place], [address], 06/25/2023 10:11:11 06/23/19 24 06/23/2023 urina lysis , dipst ick Color-Status Red Not Available [facility] [address], [place], [address], 06/23/2023 15:08:10 06/23/19 24 06/23/2023 urina lysis , dipst ick pH-Status 7.5 Not Available [facility] [address], [place], [address], 06/23/2023 15:08:10 06/23/19 24 06/23/2023 urina lysis , dipst ick Protein-Stat us >=9.0 Not Available [facility] [address], [place], [address], 06/23/2023 15:08:10 06/23/19 24 06/23/2023 urina lysis , dipst ick Nitrates-Sta tus negati ve Not Available [facility] [address], [place], [address], 06/23/2023 15:08:10 06/23/19 24 06/23/2023 urina lysis , dipst ick Blood-Status Large Not Available [facility] [address], [place], [address], 06/23/2023 15:08:10 06/23/19 24 06/23/2023 urina lysis , dipst ick Leuko-Status Negati ve Not Available [facility] [address], [place], [address], 06/23/2023 15:08:10 06/23/19 24 06/23/2023 urina lysis , dipst ick Specimen Type Voided Not Available [facility] [address], [place], [address], 06/23/2023 15:08:10 03/04/20 20 03/03/2020 NM, bone scan, whole body No observ ation record ed. [email or web address] [facility] [address], [place], [address], 03/11/2020 18:09:57 07/04/19 24 07/01/2023 CT, abdom en + pelvi s, w/o contr ast No observ ation record ed. [email or web address] [facility] [address] [place] [address], [place], [address], 09/01/2023 14:40:29 07/18/19 24 07/18/2023 XR, kidne y + urete r + bladd er No observ ation record ed. [email or web address] [facility] [address], [place], [address], 07/22/2023 15:56:19 Result Notes None recorded. Procedures Surgical History Date Name Laterality Status Provider Name and Address Organization Details Recorded Time Bladder Scan completed Rabia matthews [facility] 06/23/2023 15:08:00 Cystoscopy completed Nicola Ware MD [address], [place], [address], [facility] 12/30/2021 17:11:17 Colonoscopy completed Nicola Ware MD [address] [place] [address],[address], [place], [address], [facility] 12/30/2021 17:11:22 Imaging Results Imaging Date Name Status LastModified by Organiz ation Details LastModified Time 03/03/2020 NM, bone scan, whole body completed [email or web address] [facility] [address], [place], [address], 03/11/2020 18:09:57 07/01/2023 CT, abdomen + pelvis, w/o contrast completed [address] [facility] [address], [place], [address], 09/01/2023 14:40:29 07/18/2023 XR, kidney + ureter + bladder completed [email or web address] [address], [place], [address], 07/22/2023 15:56:19 Procedure Notes None recorded. Medical [...] PREP INSTRUCTI ONS RECEIVED FROM [facility] active Not Available Not Available No t Available furosemide 20 mg tablet TAKE 1 TABLET BY MOUTH DAILY active Not Available Not Available No t Available cefuroxime axetil 500 mg tablet active Not Available Not Available No t Available polyethylen e glycol 3350 17 gram/dose oral powder MIX AND DRINK DIRECTED IN [facility]ONOS[facility] PY PREP INSTRUCTI ONS RECEIVED FROM [facility] active Not Available Not Available No [...] Updated DateTime 12/30/2021 177.8 cm 27.4 kg/m2 88136.14 g Nicola Ware MD [address] [facility],[address], [address], [facility] 12/30/2021 17:10:12 Date Recorded Body height Body mass index (BMI) Body weight Provider Name and Address Organization Details Last Updated DateTime 03/12/2022 177.8 cm 27.4 kg/m2 98422.14 g Rabia Ferrell [facility] 03/12/2022 13:55:47 Social History Question Answer Notes LastModified by Organizat ion Details LastModified Time Tobacco Smoking Status Never Smoker Nicola Ware MD [address] [facility],[address], [address], [facility] 12/30/2021 17:11:00 What Is Your [...] Encounter Closed Date Diagnosis/Indication Diagnosis SNOMED-CT Code [id number] MD MICHELLE [facility] [address] [place] [address] 12/30/2021 16:01:19 01/01/2022 09:36:50 Increased frequency of urination [id number] Malignant tumor of prostate 919485292 Hydronephrosis 23220671 [id number] Aliza Landeros [facility] [address] [place] [address] 03/12/2022 13:13:50 03/15/2022 14:00:47 Increased frequency of urination 871381873 Malignant tumor of prostate 355170771 Hydronephrosis 72783447 [id number] MD MICHELLE [facility] [address] [place] [address] 06/23/2023 14:16:52 06/24/2023 08:40:38 Blood in urine 73738557 Health Concerns Section Related Observation LastModified by Organization Detai ls LastModified Time None Recorded Concern Status LastModified by Organization Details LastModified Time None Recorded Advance Directives Directive None Recorded Payers Encounter Date Sequence Insurance Name Policy Number Policy Krishnan Covered Member ID Krishnan Member ID Guarantor Name 06/23/2023 1 [employer] (MEDICARE REPLACEMENT/ ADVANTAGE - PPO) [id number] José Miguel D Braucher [id number] José Miguel D Braucher 03/12/2022 1 [employer] (MEDICARE REPLACEMENT/ ADVANTAGE - PPO) [id number] José Miguel D Braucher [id number] José Miguel D Braucher 12/30/2021 1 [employer] (MEDICARE REPLACEMENT/ ADVANTAGE - PPO) [id number] José Miguel D Braucher [id number] José Miguel D Braucher Notes Date Note Type Note Provider Name and Address Organization Details Recorded Time 12/30/2021 text/html HPI Notes: Excer pt from hospital consultation... 81 y.o. year old male who was admitted to [facility] for gross hematuria & CT findings. [...] some of the history. Nicola Ware MD [address] [place] [address],[address], [place], [address], [place] [facility] 12/30/2021 23:07:10 03/12/2022 text/html HPI Notes: Excer pt from hospital consultation... 81 y.o. year old male who was admitted to [facility] for gross hematuria & CT findings. [...] some of the history. Nicola Ware MD [address] [place] [address],[address], [place], [address], [facility] 03/12/2022 17:21:47 06/23/2023 text/html HPI Notes: 83 Y male here after calling triage this AM with hematuria/pain with urination. Patient has stent in place, last exchange 02/08/2022. 06/23/23 visit completed by Curry Ware MD [address] [place] [address],[address], [place], [address], [facility] 06/23/2023 16:19:33
== END 2023-09-26 14:33 | disposition home or self-care (01) ==
LOC: WOUND 14:32
PROVIDERS: PCP Family Medicine; Visit Provider Nurse Practitioner Family
DX: L89.153 Pressure ulcer of sacral region, stage 3 (principal); N30.41 Irradiation cystitis with hematuria; C61 Malignant neoplasm of prostate; C79.51 Secondary malignant neoplasm of bone; K62.7 Radiation proctitis; Y84.2 Radiological procedure and radiotherapy as the cause of abnormal reaction of the patient, or of later complication, without mention of misadventure at the time of the procedure
CPT/HCPCS: 36415; 36430; 80053; 84153; 85025; 96372; 96401; 99215; G0463; J0897; J9217; P9016

== ENCOUNTER 2023-09-30 12:40 | Outpatient (CLI) | payer MEDICARE, OTHER, SELFPAY ==
--- OUTSIDE RECORDS SUMMARY | 2023-09-30 12:42 | XMS_ITS | Clinical Summary ---
Author Organization [facility] Address [address] [place] [address] Care Team Providers Care Hot Top Liner Helper Name Role Phone Cesar Mccollum Primary Care Provider [phone] Allergies No known active allergies Medications Medication [...] VACCINE (Season Ended) 2023 01/28/2022 DTAP/TDAP/TD IMMUNIZATION (3 - Td or Tdap) 09/07/2026 09/07/2016, 08/28/2016, 03/26/2003 AD[facility]ANCE [facility]ARE PLANNING 02/17/2027 02/17/2022 HPV [...] this topic Medical Devices Implanted Type Area Salesperson Corsets Device Identifier Shelf Expiration Date Model / Serial / Lot Stent Ureteral Polaris Ultra [id number] - [id number] Implanted:Qty : 1 on 02/08/2022 by Nicola Ware MD at [facility] Stent Right: Ureter [employer] [id number] 10/08/2024 [id number] Explanted Type Area Salesperson Corsets Device Identifier Shelf Expiration Date Model / Serial / Lot Stent Came Out Of The Right Ureter Explanted:Qty: 1 on 02/08/2022 by Nicola Ware MD at [facility] Right: Urethra Advance Directives For more information, please contact: [phone] Documents on File Type Date Recorded Patient Arc Cutter Plasma Arc Expl anation Advance Directives and Living Will 02/17/2022 Health Care Directiv e 05/15/2021 Healthcare Agents on File Name Relationship Healthcare Agent Relationship Communication Mindy Waterman Daughter Co-First Alterna te Health Care Agent Meera Vega Spouse Health Care Agent [id number] (Home) Favio Vega Son Co-First Evangelina brock Health Care Agent Tereso Vega Son Co-First Fidencio dalton Health Care Agent Care Teams Hot Top Liner Helper Relationship Specialty Start Date End Date Cesar Mccollum [address] [place] [address] PCP - General Family Medicine 11/22/22
--- OUTSIDE RECORDS SUMMARY | 2023-09-30 12:42 | XMS_ITS | Referral Summary ---
Author Organization [facility] Address [address] [place] [address] Care Team Providers Care Neonatal Social Worker Name Role Phone Cesar Mccollum Primary Care Provider [phone] Allergies No known active allergies Medications Medication [...] on file Medical Devices Implanted Type Area Veterinary Surgeon Device Identifier Shelf Expiration Date Model / Serial / Lot Stent Ureteral Polaris Ultra [id number] - [id number] Implanted:Qty : 1 on 02/08/2022 by Nicola Ware MD at [facility] Stent Right: Ureter [employer] [id number] 10/08/2024 [id number] Explanted Type Area Veterinary Surgeon Device Identifier Shelf Expiration Date Model / Serial / Lot Stent Came Out Of The Right Ureter Explanted:Qty: 1 on 02/08/2022 by Nicola Ware MD at [facility] Right: Urethra Advance Directives For more information, please contact: [phone] Documents on File Type Date Recorded 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
--- OUTSIDE RECORDS SUMMARY | 2023-09-30 12:43 | XMS_ITS | Clinical Summary ---
Author Organization [facility] Address [address] [place] [address] Care Team Providers Care Compliance Assistant Name Role Phone Elsewhere, Pcp Primary Care Provider Unavailabl e Source Comments Patient records contain information from all sites at [facility]. For routine questions regarding patient records, call [phone] during business hours, M-F 8:00 AM - 5:00 PM Central Time. Record requests for emergency care only can be directed to [phone] at any time.[facility] Allergies No known active allergies Medications Medication [...] Encounters Date Type Department Care Team Description 09/27/2023 Clinical Communication Department of Urology in [place], [place] [address] [place] [phone] Paula Hernandez M.D. 09/21/2023 Clinical Communication Department of Urology in [place], [place] [address] [place] [phone] Paula Hernandez M.D. 09/16/2023 Clinical Communication Department of Urology in [place], [place] [address] [place] [phone] Provider, Unknown follow up questions 09/16/2023 Orders Only Department of Urology in [place], [place] [address] [place] [phone] Paula Hernadnez M.D. Hematuria Gross (Primary Dx) 09/15/2023 Clinical Communication [facility] [address] [place] [phone] Yasmine Loco 09/09/2023 12:10 PM CDT Ancillary Procedure Department of Nursing 09/09/2023 7:24 AM CDT - 09/15/2023 5:28 PM CDT Hospital Encounter [facility], [facility], Sixth Floor [address] [place] [phone] Gerri Merrill M.D., Ph.D. Sumit Holbrook M.D. Hematuria (Primary Dx) Discharge Disposition: Home or Self Care 09/09/2023 Documentation Department of Urology in [place], [place] [address] [place] [phone] Ko Victoria M.D. 09/06/2023 Orders Only Section of Hyperbaric Medicine in [place], [place] [address] [place] [phone] Kira Ferraro APRN, C.NJonahP., M.S.N. 09/06/2023 Clinical Communication [facility] [address] [place] [phone] Yasmine Loco 09/01/2023 10:05 AM CDT Ancillary Procedure Department of Nursing 08/31/2023 12:36 PM CDT - 08/31/2023 2:31 PM CDT Surgery [facility] [address] [place] [phone] Mayur Alvarez M.D. CYSTOSCOPY EVACUATION CLOTS 08/31/2023 12:34 PM CDT Anesthesia Event [facility] [address] [place] [phone] Joe Stoll M.D. Gran, Terry L, APRN, CRNA 08/31/2023 12:25 PM CDT Ancillary Procedure Department of General Surgery 08/30/2023 7:35 PM CDT - 09/05/2023 4:09 PM CDT Hospital Encounter [facility], [facility], First Floor [address] [place] [phone] Kirstin Hughes M.D. Thompson, R. Houston, M.D. Hematuria (Primary Dx); Tachycardia; Hematuria Gross Discharge Disposition: Home-Health Care [facility] 08/30/2023 Documentation Department of Urology in [place], [place] [address] [place] [phone] Corin Ring M.D. 08/30/2023 Intake [facility] 08/26/2023 Orders Only Department of Urology in [place], [place] [address] [place] [phone] Paula Hrenandez M.D. 08/23/2023 12:45 AM CDT Ancillary Procedure Department of Nursing 08/15/2023 8:30 AM CDT Anesthesia Event [facility] [address] [place] [phone] Hayde Song M.D. 08/15/2023 7:55 AM CDT - 08/15/2023 11:23 AM CDT Surgery [facility] [address] [place] [phone] Boubacar Brock M.D. Palliative EXPLORATORY LAPAROTOMY, CYSTOTOMY CLOSURE, RIGHT URETERAL STENT EXCHANGE 08/13/2023 4:35 PM CDT Ancillary Procedure Department of Radiology in [place], [place] [address] [place] [phone] Carlos Alberto Henson M.D. 08/13/2023 3:42 PM CDT - 08/26/2023 4:11 PM CDT Hospital Encounter [facility], [facility], Sixth Floor [address] [place] [phone] Darnell Garcia M.D. Chow, George K, M.D. Decline Functional Status [R53.81] (Primary Dx); Hematuria [R31.9] Discharge Disposition: Home or Self Care 08/13/2023 Intake [facility] from Last 3 Months Social History Tobacco Use Types Packs/Day Years Used Date Smoking Tobacco: Never Smokeless Tobacco: Never Tobacco Cessation:Counseling Given: Not Answered [facility] Utilities Answer Date Recorded In the past 12 months has [facility] [email or web address], gas, oil, or water [employer] threatened to shut off services in your [...] CDT Procedure visit Department of Urology in [place], [place] 200 [place] [phone] Paula Hernandez M.D. 200 [place] [phone] Health Maintenance Due Date Last Done Comments Zoster Vaccines (1 of 2) 1989 Depression Screening (Annual PHQ-2) 04/11/2023 Fall Risk Screen (Annual) 04/11/2023 DTaP,Tdap,and Td Vaccines (2 - Td or Tdap) 09/07/2026 09/07/2016 Influenza Vaccine Completed 03/08/2023, 01/28/2022 COVID-19 Vaccine Completed 07/21/2023, , 09/13/2022, Additional history exists Pneumococcal vaccine (65+ years) Completed 07/21/19 24 Medical Devices Implanted Type Area Manager Hospital Device Identifier Shelf Expiration Date Model / Serial / Lot Clp Hrzn Ti 6 Clp Lg Orng - [id number] Implanted:Qt y: 1 on 08/15/2023 by Boubacar Brock M.D. at [facility] Hardware e.g. pins/screws /rods [employer] [id number] 02/29/2028 [id number] / / [id number] Clp Hrzn Ti 6 Clp Lg Orng - [id number] Implanted:Qt y: 1 on 08/15/2023 by Boubacar Brock M.D. at [facility] Hardware e.g. pins/screws /rods [employer] [id number] 02/29/2028 [id number] / / [id number] Clp Hrzn Ti 6 Clp Md Monty - [id number] Implanted:Qt y: 1 on 08/15/2023 by Boubacar Brock M.D. at [facility] Hardware e.g. pins/screws /rods [employer] [id number] 03/13/2028 [id number] / / [id number] Clp Hrzn Ti 6 Clp Md Monty - [id number] Implanted:Qt y: 1 on 08/15/2023 by Boubacar Brock M.D. at [facility] Hardware e.g. pins/screws /rods [employer] [id number] 03/21/2028 [id number] / / [id number] Stnt Uret Inl 6fx24 - [id number] Implanted:Qt y: 1 on 08/15/2023 by Jakob De Paz M.D. at [facility] Ureteral Stent N/A: Ureter [employer] [id number] 11/18/2027 [id number] / / [id number] Procedures Procedure Name Priority Date/Time Associated Diagnosis [...] CDT Paula Hernandez M.D. LAB BLOOD ADD-ON [address] [address], [address] [address] * Heparin Anti-Xa Assay (09/14/2023 3:19 AM [...] Sumit Holbrook M.D. LAB BLOOD NON ADD-ON [facility] [address] [place] [address], [facility] [address] [place] [address] * IR Nephrostomy Tube Placement Left (09/13/2023 2:20 PM CDT) Anatomical Region Laterality Modality Genito Urinary, Vascular Int erventional RST LOS, Vascular Interventional ARZ LOS, Vascular Interventional FLA LOS Left X-Ray Angiography Impressions 09/13/2023 2:33 PM CDT Left 10 [place] Islander percutaneous nephrostomy tube placement. EP Narrative [...] tract was further dilated and a 10 [place] nephrostomy tube was placed with loop [...] sedation timewas: 9 minutes. IMPRESSION: Left 10 [place] percutaneous nephrostomy tube placement. EP Latisha [...] MICROBIOLOGY - GENERAL ORDERABLES Performing Organization Address City/[facility]/ZIP Co de Phone Number [facility] [address] [place] [address], [facility] [address] [place] [address] * Gram Stain (09/13/2023 2:17 PM CDT) Gram Stain No organisms seen. White blood cells, Rare 09/13/2023 9:02 PM CDT DTL Fluid (Kidney, Left) 09/13/2023 2:17 PM CDT 09/13/2023 3:56 PM CDT Comment:Specimen Source Site : Fluid Latisha Whitehead M.D. LAB MICROBIOLOGY - GENERAL ORDERABLES Performing Organization Address City/[facility]/ZIP Co de Phone Number [facility] [address] [place] [address], [facility] [address] [place] [address] * Bacterial Culture, Anaerobic + Susceptibility (09/13/2023 2:17 PM CDT) Bacterial Culture, Anaerobic + Susc No growth after 14 days of incubation. 09/27/2023 8:04 AM CDT DTL Fluid (Kidney, Left) 09/13/2023 2:17 PM CDT 09/13/2023 3:56 PM CDT Comment:Specimen Source Site : Fluid Latisha Whitehead M.D. LAB MICROBIOLOGY - GENERAL ORDERABLES Performing Organization Address [facility] Co de Phone Number [facility] [address] [place] [address] * APTT (Activated Partial Thromboplastin Time) (09/13/2023 5:56 AM CDT) Only the most recent of18 resultswithin the time period is included. Activated Partial Thrombopl Time, P 35 25 - 37 sec 09/13/2023 7:14 AM CDT DTL Blood (Blood, Venous) 09/13/2023 5:56 AM CDT 09/13/2023 6:53 AM CDT Sumit Holbrook M.D. LAB BLOOD ADD-ON Performing Organization Address [facility] Co de Phone Number [facility] 200 [place] [address], [facility] [address] [place] [address] * (ABNORMAL) Basic Metabolic Panel (09/13/2023 5:56 [...] CDT Paula Hernandez M.D. LAB BLOOD ADD-ON [facility] [address] [place] [address], [facility] [address] [place] [address] * NM Kidney DMSA (09/12/2023 12:21 PM [...] RAD IMAGI NG PROCEDURES Performing Organization Address City/[facility]/ZIP Co de Phone Number [facility] NA * Osmolality, Urine (09/09/2023 11:28 AM CDT) Only the most recent of2 resultswithin the time period is included. Osmolality, U 380 150 - 1150 mOsm/kg 09/09/2023 12:19 PM CDT DTL Urine 09/09/2023 11:2 8 AM CDT 09/09/2023 11:58 AM CDT Jeffery Church M.D. LAB URINE ORDERA BLES Performing Organization Address City/[facility]/ZIP Co de Phone Number [facility] [address] [place] [address], [place] DTL [facility] [address] [place] [address] * (ABNORMAL) Dipstick, Urine (09/09/2023 11:28 AM [...] LAB URINE ORDERA SHELLY Performing Organization Address City/[facility]/ZIP Co de Phone Number [facility] [address] [place] [address], [facility] [address] [place] [address] * pH, Random, Urine (09/09/2023 11:28 AM CDT) Only the most recent of2 resultswithin the time period is included. pH, Random, U 6.3 4.5 - 8.0 09/09/2023 12:19 PM CDT DTL Urine 09/09/2023 11:2 8 AM CDT 09/09/2023 11:58 AM CDT Jeffery Church M.D. LAB URINE ORDERA SHELLY Performing Organization Address City/[facility]/ZIP Co de Phone Number [facility] [address] [place] [address], [facility] [address] [place] [address] * (ABNORMAL) Microscopic Manual (09/09/2023 11:28 AM [...] 8 AM CDT 09/09/2023 11:58 AM CDT Jeffeyr Church M.D. LAB URINE ORDERA [facility] [address] [place] [address], [facility] [address] [place] [address] * (ABNORMAL) Bacterial Culture, Aerobic + Susceptibility, [...] Church M.D. LAB MICROBIOLOGY - GENERAL ORDERABLES [facility] [address] [place] [address], [facility] [address] [place] [address] * (ABNORMAL) Gram Stain, Urine (09/09/2023 11:28 AM CDT) Source Urine, Urine, Straight Catheter 09/09/2023 11:58 AM CDT DTL Gram Stain, U Positive(A) Negative 09/09/2023 12:16 PM CDT DTL Comment: Few Gram-negative bacilli ? Yeast Urine 09/09/2023 11:2 8 AM CDT 09/09/2023 11:58 AM CDT Jeffery Church M.D. LAB URINE ORDERA BLEBryon [facility] [address] [place] [address], [facility] DTL [facility] [address] [place] [address] * (ABNORMAL) Urinalysis, with Microscopic: Urine, Straight [...] 09/09/2023 1:02 PM CDT DTL Predicted Range 2480-44115 mg/24 h 09/09/2023 1:02 PM CDT DTL Comment Micro done on <2.5 mL 09/09/2023 12:27 PM CDT DTL Urine (Urine, Straight Catheter) 09/09/2023 11:28 AM CDT 09/09/2023 11:58 AM CDT Jeffery Church M.D. LAB URINE STEFFANY BRAVO [facility] [address] [place] [address], [facility] DTL [facility] [address] [place] [address] * US Kidneys Bilateral with Bladder (09/09/2023 [...] CDT Jeffery Church M.D. [place] [address], [place] [address] * (ABNORMAL) CBC with Differential, Blood (09/09/2023 8:04 AM CDT) Only the most recent of7 resultswithin the time period is included. Pathologist [facility] Hemoglobin 8.9(L) 13.2 - 16.6 g/dL 09/09/2023 [...] CDT Jeffery Church M.D. LAB BLOOD ADD-ON [facility] [address] [place] [address], [facility] STMA [facility] [address] [place] [address] DHPM [facility] [address] [place] [address] * Type and Screen (with Reflex Antibody ID) (09/09/2023 8:03 AM CDT) Only the most recent of6 resultswithin the time period is included. ABORh O Pos Not applicable 09/09/2023 8:47 AM CDT STRM Antibody Screen Negative Negative 09/09/2023 9:02 AM CDT STRM Type & Screen Expiration 09/12/2023 23:59 09/09/2023 8:47 AM CDT STRM Testing Location Pet[place] DEFAULT 09/09/2023 8:10 AM CDT STRM Blood (Blood, Venous) 09/09/2023 8:03 AM CDT 09/09/2023 8:10 AM CDT Jeffery Church M.D. LAB BLOOD BANK T EST ORDERABLES Performing Organization Address [facility] Co de Phone Number [facility] [address] [place] [address], [facility] STRM [facility] [address] [place] [address] * Potassium (09/05/2023 4:56 AM CDT) Only the most recent of2 resultswithin the time period is included. Potassium, S 3.6 3.6 - 5.2 mmol/L 09/05/2023 5:49 AM CDT DTL Blood (Blood, Venous) 09/05/2023 4:56 AM CDT 09/05/2023 5:22 AM CDT Roxy Romero M.D. LAB BLOOD ADD-ON Performing Organization Address [facility] Co de Phone Number [facility] [address] [place] [address], [facility] [address] [place] [address] * FL Fluoro Less Than 1 Hour [...] FLUOROSCOPY PROCEDURES Performing Organization Address [facility] Co de Phone Number 152 HOS LOS RST * LDA ANE NON-SURGICAL AIRWAY (08/31/2023 12:43 PM CDT) Narrative Benjamin Williamson APRN SHUTTLE INSPECTOR - 08/31/2023 12:43 PM CDT Benjamin Williamson APRN, SHUTTLE INSPECTOR ? 08/31/2023 12:55 PM Airway Date/Time: 08/31/2023 12:43 PM Performed by: Benjamin Williamson APRN, SHUTTLE INSPECTOR Authorized by: Joe Stoll M.D. ?? Patient [...] Vieira M.D., M.S. LAB BLOO D ADD-ON [facility] [address] [place] [address], [facility] [address] [place] [address] * Lactate (08/30/2023 9:50 PM CDT) Lactate, P 1.8 0.5 - 2.2 mmol/L 08/30/2023 10:09 PM CDT STMA Blood (Blood, Venous) 08/30/2023 9:50 PM CDT 08/30/2023 9:55 PM CDT Shannan Correa D.O., M.H.A. LAB BLOOD NON ADD-ON [facility] [address] [place] [address], [facility] [address] [place] [address] * DX Chest AP or PA and [...] included. Ventricular Rate ECG/Min 145 BPM MUSE WA Interval 136 ms MUSE QRSD Interval 64 ms MUSE QT Interval 260 ms MUSE QTC Interval 403 ms MUSE P [place] 44 degrees MUSE R [place] 9 degrees MUSE T Wave [place] -76 degrees MUSE 08/30/2023 7:44 PM CDT [...] CDT Boubacar Brock M.D. LAB BLOOD ADD-ON [facility] [address] [place] [address], [facility] [address] [place] [address] * Magnesium (08/26/2023 3:20 AM CDT) Only the most recent of6 resultswithin the time period is included. Magnesium, S 2.1 1.7 - 2.3 mg/dL 08/26/2023 4:04 AM CDT DTL Blood (Blood, Venous) 08/26/2023 3:20 AM CDT 08/26/2023 3:50 AM CDT Boubacar Brock M.D. LAB BLOOD ADD-ON Performing Organization Address City/[facility]/ZIP Co de Phone Number [facility] [address] [place] [address] * (ABNORMAL) Phosphorus Inorganic (08/23/2023 9:58 PM CDT) Only the most recent of2 resultswithin the time period is included. Phosphorus (Inorganic), S 2.1(L) 2.5 - 4.5 mg/dL 08/23/2023 10:45 PM CDT DTL Blood (Blood, Venous) 08/23/2023 9:58 PM CDT 08/23/2023 10:30 PM CDT Paula Hernandez M.D. LAB BLOOD ADD-ON Performing Organization Address City/[facility]/ZIP Co de Phone Number [facility] [address] [place] [address] * Triglycerides (08/23/2023 3:42 AM CDT) Only [...] CDT Boubacar Brock M.D. LAB BLOOD ADD-ON [facility] [address] [place] [address], [facility] DTL [facility] [address] [place] [address] * Glucose, POCT (08/22/2023 11:38 PM CDT) Glucose, POCT, B 117 70 - 140 mg/dL 08/23/2023 1:06 AM CDT PCLX Site Capillary 08/23/2023 1:06 AM CDT PCLX Last Intake NPO 08/23/2023 1:06 AM CDT PCLX Blood 08/22/2023 11:3 8 PM CDT 08/23/2023 1:06 AM CDT Unknown Provider LAB POCT ORDERABLES- MANUAL Performing Organization Address [facility] Co de Phone Number [facility] [address] [place] [address], [facility] PCLX [facility] [address] [place] [address] * CT Abdomen Pelvis without IV Contrast [...] transport rates. All other fluids refer to [email or web address] for further interpretive information. This test has been modified from the quality consultant's instructions. Its performance characteristics were determined by [...] M.D. LAB BODY FLUIDS AND STOOLS ORDERABLES [address] [address], [facility] [address] [place] [address] * IR PICC Line Placement (08/22/2023 8:35 AM CDT) Anatomical Region Laterality Modality Chest, Pelvis, Abdomen, Vasc ular Interventional RST LOS, Vascular Interventional ARZ LOS, Vascular Interventional FLA LOS N/A X-Ray Angiography Impressions 08/22/2023 9:05 AM CDT Placement of a right IJ vein single-lumen 4 [place]er tunneled PowerPICC ready for immediate use. [...] advanced into the IVC and a 4 [place] dilator advanced over the wire and attached to a one-way stopcock. A suitable exit site in the right anterior chest was anesthetized and a small incision made. A 4 [place] single-lumen PowerPICC was then tunneled from [...] Wireadvanced into the IVC and a 4 [place] dilator advanced over the wire andattached to a one-way stopcock. A suitable exit site in the right anteriorchest was anesthetized and a small incision made. A 4 [place] single-lumen PowerPICC was then tunneled fromthe [...] of a right IJ vein single-lumen 4 [place] tunneled PowerPICCready for immediate use. NR [...] CDT Latisha Whitehead M.D. LAB BLOOD ADD-ON [facility] [address] [place] [address], [facility] DTL [facility] [address] [place] [address] * Place peripherally inserted central catheter (PICC) [...] and management can be found on the [employer] site. Link [email or web address]/topic/clinical-answers/[email or web address]/[email or web address] Findings discussed with ??Tayler Greenwood, ?? ([id number]) on 08/17/2023 7:11 PM. Procedure Note Jj [...] thrombosis and management can be found on theAskMaOsage Liquor Wine & SpiritsExpert site. [email or web address]/topic/clinical-answers/[email or web address]/cpm [email or web address] 1725 Findings discussed with Tayler Greenwood MD ([id number]) on 08/17/2023 7:11 PM. IMPRESSION: 1. Aging, [...] BLOOD NON ADD-O N Performing Organization Address City/[facility]/ZIP Co de Phone Number [facility] [address] [place] [address] * Patient Status (08/15/2023 11:56 AM CDT) Only the most recent of2 resultswithin the time period is included. Temperature 36.2 37.0 deg C 08/15/2023 12:04 PM CDT STMA Blood 08/15/2023 11:5 6 AM CDT 08/15/2023 12:03 PM CDT Rae Gonzalez [employer], SHUTTLE INSPECTOR, DNAP LAB BLOO D NON ADD-ON [facility] 200 [place] [address], [facility] 200 [place] [address] * Sodium, B (08/15/2023 11:56 AM CDT) Only the most recent of2 resultswithin the time period is included. Sodium, B 135 135 - 145 mmol/L 08/15/2023 12:06 PM CDT STMA Blood (Blood, Arterial Line) 08/15/2023 11:56 AM CDT 08/15/2023 12:03 PM CDT Hayde Song M.D. LAB BLOOD NON ADD-O N [facility] [address] [place] [address], [facility] STMA [facility] [address] [place] [address] * (ABNORMAL) Blood Gas with Coox, Arterial [...] Song M.D. LAB BLOOD NON ADD-O N [facility] [address] [place] [address], [facility] [address] [place] [address] * Potassium, Blood (08/15/2023 11:56 AM CDT) Only the most recent of2 resultswithin the time period is included. Potassium, B 4.3 3.6 - 5.2 mmol/L 08/15/2023 12:07 PM CDT [facility] Blood (Blood, Arterial Line) 08/15/2023 11:56 AM CDT 08/15/2023 12:03 PM CDT Hayde Song M.D. LAB BLOOD NON ADD-O N Performing Organization Address City/[facility]/ZIP Co de Phone Number [facility] [address] [place] [address] [address] [place] [address] * (ABNORMAL) Glucose, Whole Blood (08/15/2023 11:56 AM CDT) Only the most recent of2 resultswithin the time period is included. Glucose 144(H) 70 - 140 mg/dL 08/15/2023 12:06 PM CDT [facility] Blood (Blood, Arterial Line) 08/15/2023 11:56 AM CDT 08/15/2023 12:03 PM CDT Hayde Song M.D. LAB BLOOD ADD-ON [facility] [address] [place] [address], [facility] [address] [place] [address] * (ABNORMAL) Calcium, Ionized (08/15/2023 11:56 AM CDT) Only the most recent of2 resultswithin the time period is included. Calcium, Ionized, B 4.53(L) 4.65 - 5.30 mg/dL 08/15/2023 12:07 PM CDT STMA Blood (Blood, Arterial Line) 08/15/2023 11:56 AM CDT 08/15/2023 12:03 PM CDT Hayde Song M.D. LAB BLOOD NON ADD-O N [facility] [address] [place] [address], [facility] [address] [place] [address] * [place] ARTL CATH/CNULA MONITOR [place], [place] [...] ETT location: oral VL device: glide scope [place] scope blade size: 4 Tube size: 7.5 [...] CDT Comment:Specimen Source Site : Blood Narrative [facility] - 08/20/2023 6:02 AM CDT Received Bactec aerobic and Bactec anaerobic bottles Carlos Alberto Henson M.D. LAB MICROBIOLOGY - G ENERAL ORDERABLES Performing Organization Address [facility] Co de Phone Number [facility] [address] [place] [address], [facility] [address] [place] [address] * (ABNORMAL) Hepatic Function Panel (08/13/2023 5:27 PM CDT) Pathologist [facility] Bilirubin, Total, S 0.8 0.0 - 1.2 [...] M.D. LAB BLOOD ADD-ON Performing Organization Address City/[facility]/ZIP Co de Phone Number [facility] [address] [place] [address], [facility] 200 [place] [address] * Interpretation of Outside CT Abdomen and [...] right renal atrophy. This is progressed since 2020. Since 2020, interval placement of a right [...] Advance Directives For more information, please contact: [phone] * Full Code (Latest Code Status on File) Date Activated Date Inactivated Comments 08/30/2023 10:40 PM 09/05/2023 6:15 PM Question Answer Comments Full Code: Not Discussed Due to: Patient not available * Full Code Date Activated Date Inactivated Comments 08/13/2023 4:30 PM 08/26/2023 6:58 PM Question Answer Comments Full Code: Discussed Care Teams Compliance Assistant Relationship Specialty Start Date End Date Elsewhere, Pcp PCP - General Internal Medicine 08/13/23
--- OUTSIDE RECORDS SUMMARY | 2023-09-30 12:44 | XMS_ITS | Encounter Summary ---
Author Organization [facility] Address [address] [place] [address] Care Team Providers Care Threader Operator Name Role Phone Elsewhere, Pcp Primary Care Provider Unavailabl e Reason for Referral * Outpatient (Routine) - Authorized Specialty Diagnoses / Procedures Referred By Contac t Referred To Contact Diagnoses Hematuria Procedures URO Urethral cath change (UCC) Paula Hernandez M.D. [address] [place] [address] [facility] Referral ID Status Reason Start Date Expiration Date V isits Requested Visits Authorized [id number] Authorized 09/15/2023 09/14/2024 1 1 * Outpatient (Routine) - Authorized Specialty Diagnoses / Procedures Referred By Contac t Referred To Contact Radiology Diagnoses Hematuria Procedures IR Nephrostomy Tube Exchange Left Paula Hernandez M.D. [address] [place] [address] [facility] Referral ID Status Reason Start Date Expiration Date V isits Requested Visits Authorized [id number] Authorized 09/15/2023 09/14/2024 1 1 Reason for Visit * Reason Comments Blood in Urine Encounter Details Date Type Department Care Team (Latest Contact Info) Description 09/09/2023 7:24 AM CDT - 09/15/2023 5:28 PM CDT Hospital Encounter [facility], Sixth Floor [address] [place] [phone] Gerri Merrill M.D., Ph.D. [address] [place] [phone] Sumit Holbrook M.D. [address] [place] [phone] Hematuria (Primary Dx) Discharge Disposition: Home or Self Care Social History Tobacco Use Types Packs/Day Years Used Date Smoking Tobacco: Never Smokeless Tobacco: Never [facility] curated.byities Answer Date Recorded In the past 12 months has [facility] [place], gas, oil, or water [employer] threatened to shut off services in your [...] your living situation today? I have a [facility] place to live 09/09/2023 Sex and [...] AM CDT DISCHARGE SUMMARY BRIEF OVERVIEW Hospital: [facility] Discharge Provider: Sumit Holbrook M.D. Primary Team: [facility] Urology Surgery - Chief Helga Rojas [...] IP CONSULT TO UROLOGY IP CONSULT TO JUSTICE COURT DEPUTY CLERK WOUND CARE IP CONSULT TO HYPERBARIC MEDICINE IP CONSULT TO VASCULAR MEDICINE IP CONSULT TO DIETITIAN CONDITION AT DISCHARGE stable Discharge instructions were provided to the patient and caregiver(s). documented in this encounter Discharge Instructions * Discharge Instructions* Yasmine Loco - 09/09/2023 12:27 PM CDT You were discharged from the [facility] Urology Surgery - Chief A - Blue Service. Please identify this service name if you call with questions after hospitalization. * Attachments The following attachments cannot be sent through Care Everywhere. * Sulfamethoxazole/Trimethoprim (By mouth) (Liberian) documented in this encounter Medications at Time [...] the second dose and call 911 11/02/2019 sulfamethoxazole-trime thoprim (BACTRIM DS) 800-160 mg per tablet Take 1 tablet by mouth every 12 (twelve) hours for 2 days. 4 tablet 09/15/2023 09/17/2023 documented as of this encounter Progress Notes * Deanne Mike L.G.SHilario., M.S.W. - 09/15/2023 12:27 PM CDT SUBJECTIVE [...] home. Social Work also sent referral to [facility] and reached out to Service [...] reviewed. GI Function: Last BM Date: 09/11/23, [place] Stool Chart: Type 5: Soft blobs with [...] 86.8 kg (09/09/2023) Current Weight: 84.5 kg [place] Body Weight (Calculated) : 75.3 kg BMI [...] or 5%. Estimated Needs: Total Calorie Needs: 4908-6882 calories/day Method to Estimate Energy Needs: kcal/kg [...] about patient's nutritional care please contact pager [phone] on weekdays 07:30-16:00 or [phone] on weekends/holidays ([facility]). * Clara Luu APRN, C.N.P., D.N.P. [...] Drains Intake/Output Last 24 Hours: Date 09/13/23 0700 - 09/14/2359 09/14/23699 - 09/15/23 0659 Shift [id number] 8848-4947 1339-1105 24 Hour Total 6837-8350 1207-8931 2687-8536 24 Hour Total INTAKE Other 30 60 [...] please contact Vascular and Interventional Radiology DEBBI ([phone]). Anticoagulation: A percutaneous nephrostomy tube is considered [...] care. Please feel free to page the [facility] Inpatient Consult Service at [phone] or the on-call resident at [phone] after 5 PM and on weekends with additional questions. * Paula Hernandez M.D. - 09/14/2023 5:28 AM CDT UROLOGY CHIEF SERVICE PROGRESS NOTE SUBJECTIVE Kalen Vegaamie seen by the team during morning rounds. [...] . Neph tube clear yellow urine. I/O ([id number]): 1.9 L, 1.1 L from the neph [...] questions or concerns. Pager during business hours: [phone] Pager after hours: [phone] * Paula Hernandez M.D. - 09/13/2023 6:05 AM CDT UROLOGY CHIEF SERVICE PROGRESS NOTE SUBJECTIVE Kalen Guerreir seen by the team during morning rounds. [...] in place draining clear yellow urine I/O ([id number]): Adequate urine output 2.7 L/248 1 L [...] questions or concerns. Pager during business hours: [phone] Pager after hours: [phone] * Raya Meza Pharm.D., R.Ph., [facility] - 09/12/2023 7:44 AM CDT Images from [...] in place draining clear yellow urine I/O ([id number]): CBI paused for obs Labs: Hb: Hemoglobin [...] Date/Time Bacterial Culture, Aerobic + Susceptibility, Urine [[id number]] (Abnormal) (Susceptibility) Collected: 09/09/23 1128 Lab Status: [...] Susceptible Bacterial Culture, Aerobic + Susceptibility, Urine [[id number]] Collected: 09/03/23 1050 Lab Status: Final result Specimen: Urine, Indwelling Catheter Updated: 09/04/23 0852 Urine Culture No growth after 1 day [...] DVT - Hold Plavix and Eliquis -Bactrim [facility] Summary: Diet: regular Activity: ad kong DVT PPX: low intensity heparin drip GI PPX: none Bowel Regimen: senna, miralax IVF: none Abx/Microbiology: bactrim started 09/11 Pain Control: scheduled trospium Home Meds Resumed: enzalutamide, metoprolol, Crestor Held Home Meds: Xarelto, Plavix Consults: Vascular Medicine Paula Hernandez M.D. 09/12/2023 Please page the Urology Chief Service with questions or concerns. Pager during business hours: [phone] Pager after hours: [phone] * Js Yang M.D. - 09/11/2023 9:18 [...] Service [place] [phone] during business hours orat [phone] after hours. * Portillo Crespo Pharm.D., R.Ph., [...] Crespo Pharm.D., R.Ph., BCPS * Favio Carmichael PharmPerla., R.Ph., BCPS - 09/10/2023 11:27 AM CDT [...] aPTT guidance document in [employer]. Favio Carmichael Pharm.D., R.Ph., BCPS ADDENDUM - Heparin Current heparin rate: 11 units/kg/hr No loading dose will be administered aPTT is at goal. Dose will remain the same. Next aPTT level: 09/11/23 at 0000 Mayur Collier PharmD, LUCERO, BCPS, [facility] Pager [phone] * Js Yang M.D. - 09/10/2023 9:50 [...] Service [place] [phone] during business hours orat [phone] after hours. * Quin Harrell Pharm.D., R.Ph., [...] R.N., C.W.C.N. - 09/09/2023 1:16 PM CDT [facility] Wound RN consulted to assess Kalen [...] Pre-Existing Unstageable Pressure Injury over Scar Tissue WOC RN was consulted to assess pre-existing Unstageable [...] None Unable to Measure N *Wound Bed Open;[place];Yellow;Fibrin/Slough Tissue Exposed None Odor None *Exudate Amount Small Drainage Description Serous;Perez Janiya-wound Assessment Intact;Fragile;[place];Purple;Maceration;White Periwound Treatment Liquid skin protectant (SurePrep) *Primary Dressing Gelling fiber/Hydrofiber (Aquacel Ag) *Primary Dressing Frequency of Change Daily & PRN *Secondary Dressing Foam (Sacral Mepilex Border) *Secondary Dressing Frequency of Change Daily & PRN Lengthy Treatment > 30 minutes > 30 minutes Ongoing management Nursing;Wound/survey technologist Partial head to toe skin assessment completed [...] C.W.C.N. 09/09/23 1:16 PM CDT * Raya Meza Pharm.D., R.Ph., [facility] - 09/09/2023 11:17 AM CDT Images from [...] to follow for medicationuse optimization Stephanie Meza Pharm.D., R.Ph., [facility] Admission Medication History Note Adherence issues: No concerns Medication list source: Patient, son, recent filling Hx Medication related information: Per pt, he takes amlodipine, mirabegron daily in the afternoon, around 1 to 2 pm-tucker, for no specific reasons Prior to Admission Medications Med List Status: Pharmacy Complete Set By: Raya Meza, Pharm.D., R.Ph., [facility] at 09/09/2023 11:16 [...] Encounter Medication Reason bacitracin 500 unit/gram ointment Pharm. YanciDJonah, R.Ph., BCPS The information and recommendations contained in this note are based on information available at the time of documentation. * Paula Hernandez M.D. - 09/09/2023 9:04 AM CDT Urology plan of care: -please place Jon catheter placement, 22F three-way catheter -please obtain bladder US -admit to urology chief a blue consult note to follow Paula Hernandez M.D. Urology PGY-2 Pager #[phone] Please page Chief Urology at [phone] from 7 AM - 5 PM or at [phone] after hours with any questions/concerns. documented in [...] reviewed. GI Function: Last BM Date: 09/11/23, [place]onson Stool Chart: Type 5: Soft blobs with [...] 86.8 kg (09/09/2023) Current Weight: 84.5 kg [place] Body Weight (Calculated) : 75.3 kg BMI [...] or 5%. Estimated Needs: Total Calorie Needs: 6210-3102 calories/day Method to Estimate Energy Needs: kcal/kg [...] about patient's nutritional care please contact pager [phone] on weekdays 07:30-16:00 or [phone] on weekends/holidays ([facility]). * Clara Luu, SKINNING MACHINE FEEDER, C.N.P., D.N.P. - 09/12/2023 11:59 AM CDTAssociated [...] admitted for CBI. He was transferred to [facility] after difficultywith irrigating his Jon and CT [...] ABDOMEN INCISIONAL; Surgeon: Boubacar Brock M.D.; Location: [facility] ROMB OR CYSTOSCOPY CYSTOGRAM VOIDING N/A 08/31/2023 [...] APTT (Activated Partial Thromboplastin Time) Collection Time: 06/03/24 3:42 AM Result Value Activated Partial Thrombopl [...] and recommendations. Please feel free to page [phone] [phone] after 5 PM and on weekends with additional questions. VIR will continue to follow * Alessandra Aguero D.O. - 09/09/2023 5:26 PM CDTAssociated Order(s): IP CONSULT TO VASCULAR MEDICINE VASCULAR MEDICINE CONSULT NOTE Requesting Physician: Gerri Merrill M.D.,* SUBJECTIVE REASON FOR CONSULT: assistance with AC management, patient on plavix and eliquis admitted with refractory hematuria requing CBI. Recommend heparin drip? thanks [place] [facility] [phone] HISTORY OF PRESENT ILLNESS Mr. Vega is [...] stents placed in total (2016, no prior [place], completed after positive stress test) Recommended for [...] for radiation proctitis SOCIAL HISTORY Lives in [place], [place] OBJECTIVE AVSS General: Lying in bed, [...] with Dr. Victoria, the chief urology resident traction power engineer. Please page chief Urology Service [place] [phone] [place] [phone] after hours. Paula Hernandez M.D. 09/09/23 9:10 [...] in this encounter Nursing Notes * Brittanie Lewis, RRitesh. - 09/15/2023 5:18 PM CDT Shift Goals: Clinical Goals for the Shift: Pt will report adequate pain control during shift Identify possible barriers to meeting goals/advancing plan of care: none End of Shift Summary: Pt DC'd to [facility] with family. Patient educated on nephrostomy tube [...] Iagree with the note of the resident. Patient [...] Urology consulted after discussion with the catheter coordinate measuring machine technician who advised that for this patient they are required to get approval from Urologyprior to placing catheter. ED Course as of 09/09/23 0958 TueSeptember 09, 2023 0822 Hemoglobin(!): 8.9 Down from 9.6 one-week ago 0822 Leukocytes(!): 14.5 New leukocytosis with neutrophilia 0822 INR: 1.1 0823 Discussed with the catheter coordinate measuring machine technician. Bladder scan showed 125 mL. There [...] CDT Procedure visit Department of Urology in [place], [place] [address] [place] [address] Paula Hernandez M.D. [address] [place] [address] Pending Results Name Type Priority Associated Diagnoses Date /Time Prepare Red Blood Cells, 2 Units Blood Bank Routine 09/09/2023 8:03 AM CDT Fungal Culture, Routine Microbiology Timed 09/13/2023 [...] CDT Paula Hernandez M.D. LAB BLOOD ADD-ON [facility] [address] [place] [address], [facility] DTL [facility] [address] [place] [address] * Heparin Anti-Xa Assay (09/14/2023 3:19 AM CDT) Pathologist [facility] Heparin Anti-Xa, P 0.11 IU/mL 2023 4:07 [...] Sumit Holbrook M.D. LAB BLOOD NON ADD-ON [address] [address], [facility] [address] [address] * (ABNORMAL) CBC without Differential (09/14/2023 3:19 AM CDT) [facility] Hemoglobin 10.1(L) 13.2 - 16.6 g/dL [...] CDT Paula Hernandez M.D. LAB BLOOD ADD-ON [facility] [address] [place] [address], [facility] DTL [facility] [address] [place] [address] * IR Nephrostomy Tube Placement Left (09/13/2023 2:20 PM CDT) Anatomical Region Laterality Modality Genito Urinary, Vascular Int erventional RST LOS, Vascular Interventional ARZ LOS, Vascular Interventional FLA LOS Left X-Ray Angiography Impressions 09/13/2023 2:33 PM CDT Left 10 Cuban percutaneous nephrostomy tube placement. EP Narrative 09/13/2023 [...] tract was further dilated and a 10 Cuban nephrostomy tube was placed with loop formed [...] sedation timewas: 9 minutes. IMPRESSION: Left 10 Cuban percutaneous nephrostomy tube placement. EP Latisha Whitehead M.D. IMG IR PROCEDURE S * Bacterial Culture, Anaerobic + Susceptibility (09/13/2023 2:17 PM CDT) Bacterial Culture, Anaerobic + Susc No growth after 14 days of incubation. 09/27/2023 8:04 AM CDT DT Fluid (Kidney, Left) 09/13/2023 2:17 PM CDT 09/13/2023 3:56 PM CDT Comment:Specimen Source Site : Fluid Latisha Whitehead M.D. LAB MICROBIOLOGY - GENERAL ORDERABLES Performing Organization Address City/[facility]/ZIP Co de Phone Number [facility] [address] [place] [address], [facility] [address] [place] [address] * Gram Stain (09/13/2023 2:17 PM CDT) Gram Stain No organisms seen. White blood cells, Rare 09/13/2023 9:02 PM CDT DT Fluid (Kidney, Left) 09/13/2023 2:17 PM CDT 09/13/2023 3:56 PM CDT Comment:Specimen Source Site : Fluid Latisha Whitehead M.D. LAB MICROBIOLOGY - GENERAL ORDERABLES [facility] [address] [place] [address], [facility] [address] [place] [address] * Bacterial Culture, Aerobic + Susceptibility (09/13/2023 2:17 PM CDT) Bacterial Culture, Aerobic + Susc No growth after 5 days of incubation. 09/18/2023 12:35 PM CDT DTL Fluid (Kidney, Left) 09/13/2023 2:17 PM CDT 09/13/2023 3:56 PM CDT Comment:Specimen Source Site : Fluid Latisha Whitehead M.D. LAB MICROBIOLOGY - GENERAL ORDERABLES Performing Organization Address City/[facility] Co de Phone Number [facility] [address] [place] [address], [facility] [address] [place] [address] * (ABNORMAL) CBC without Differential (09/13/2023 5:57 [...] CDT Ko Victoria M.D. LAB BLOOD ADD-ON [facility] [address] [place] [address], [facility] [address] [place] [address] * Heparin Anti-Xa Assay (09/13/2023 5:56 AM CDT) Heparin Anti-Xa, P 0.10 IU/mL 2023 7:[address] [facility] Comment: UFH [...] LAB BLOOD NON ADD-ON Performing Organization Address [facility]/ZIP Co de Phone Number [facility] [address] [place] [address], [facility] [address] [place] [address] * APTT (Activated Partial Thromboplastin Time) (09/13/2023 5:56 AM CDT) Activated Partial Thrombopl Time, P 35 25 - 37 sec 09/13/2023 7:[address] [facility] Blood (Blood, Venous) 09/13/2023 5:56 AM CDT 09/13/2023 6:53 AM CDT Sumit Holbrook M.D. LAB BLOOD ADD-ON [facility] [address] [place] [address], [facility] DTL [facility] [address] [place] [address] * (ABNORMAL) Basic Metabolic Panel (09/13/2023 5:56 AM CDT) Pathologist [facility] Potassium, S 3.7 3.6 - 5.2 mmol/L [...] CDT Paula Hernandez M.D. LAB BLOOD ADD-ON [facility] [address] [place] [address], [facility] DTL [facility] [address] [place] [address] * NM Kidney DMSA (09/12/2023 12:21 PM [...] CDT Ko Victoria M.D. LAB BLOOD ADD-ON [facility] [address] [place] [address], [facility] DTL [facility] [address] [place] [address] * (ABNORMAL) APTT (Activated Partial Thromboplastin Time) (09/12/2023 3:42 AM CDT) Activated Partial Thrombopl Time, P 49(H) 25 - 37 sec 09/12/2023 4:35 AM CDT DTL Blood (Blood, Venous) 09/12/2023 3:42 AM CDT 09/12/2023 4:00 AM CDT Gerri Merrill M.D., Ph.D. LAB BLOOD A DD-ON [facility] [address] [place] [address], [facility] [address] [place] [address] * (ABNORMAL) Basic Metabolic Panel (09/11/2023 8:23 [...] CDT Js Yang M.D. LAB BLOOD ADD-ON Performing Organization Address [facility] Co de Phone Number [facility] [address] [place] [place] [address] [address] [place] [address] * (ABNORMAL) CBC without Differential (09/11/2023 8:23 [...] Performing Organization Address City/[facility]/ZIP Co de Phone Number [facility] [address] [place] [address], [facility] DTL [facility] [address] [place] [address] * (ABNORMAL) APTT (Activated Partial Thromboplastin Time) (09/10/2023 11:42 PM CDT) Activated Partial Thrombopl Time, P 47(H) 25 - 37 sec 09/11/2023 2:05 AM CDT DTL Blood (Blood, Venous) 09/10/2023 11:42 PM CDT 09/11/2023 2:05 AM CDT Gerri Merrill M.D., Ph.D. LAB BLOOD A DD-ON [facility] [address] [place] [address], [place] [facility] [address] [place] [address] * US Urinary Bladder (09/10/2023 8:41 PM [...] LAB BLOOD A DD-ON Performing Organization Address [facility] Co de Phone Number [facility] [address] [place] [address], [facility] [address] [place] [address] * (ABNORMAL) APTT (Activated Partial Thromboplastin Time) (09/10/2023 10:11 AM CDT) [facility] Activated Partial Thrombopl Time, P 63(H) 25 - 37 sec 09/10/2023 10:57 AM CDT DTL Blood (Blood, Venous) 09/10/2023 10:11 AM CDT 09/10/2023 10:40 AM CDT Gerri Merrill M.D., Ph.D. LAB BLOOD A DD-ON Performing Organization Address [facility] de Phone Number [facility] [address] [place] [address], [facility] [address] [place] [address] * (ABNORMAL) CBC without Differential (09/10/2023 3:27 AM CDT) [facility] Hemoglobin 8.1(L) 13.2 - 16.6 g/dL [...] Performing Organization Address City/[facility]/ZIP Co de Phone Number [facility] [address] [place] [address] * (ABNORMAL) APTT (Activated Partial Thromboplastin Time) (09/10/2023 12:06 AM CDT) Activated Partial Thrombopl Time, P 57(H) 25 - 37 sec 09/10/2023 1:05 AM CDT DTL Blood (Blood, Venous) 09/10/2023 12:06 AM CDT 09/10/2023 12:33 AM CDT Gerri Merrill M.D., Ph.D. LAB BLOOD A DD-ON Performing Organization Address [facility] Co de Phone Number [facility] [address] [place] [address] * APTT (Activated Partial Thromboplastin Time) (09/09/2023 5:08 PM CDT) Activated Partial Thrombopl Time, P 31 25 - 37 sec 09/09/2023 5:24 PM CDT STMA Blood (Blood, Venous) 09/09/2023 5:08 PM CDT 09/09/2023 5:12 PM CDT Ko Victoria M.D. LAB BLOOD ADD-ON [facility] [address] [place] [address], [facility] STMA [facility] [address] [place] [address] * (ABNORMAL) Dipstick, Urine (09/09/2023 11:28 AM CDT) Hemoglobin, QL, U Large(A) Negative 09/09/2023 12:03 [...] LAB URINE ORDERA BLES Performing Organization Address City/[facility]/ZIP Co de Phone Number [facility] [address] [place] [address], [facility] DTL [facility] [address] [place] [address] * pH, Random, Urine (09/09/2023 11:28 AM CDT) pH, Random, U 6.3 4.5 - 8.0 09/09/2023 12:19 PM CDT DTL Urine 09/09/2023 11:2 8 AM CDT 09/09/2023 11:58 AM CDT Jeffery Church M.D. LAB URINE ORDERA BLES [facility] [address] [place], [place] [id number] [place] [address] [facility] [address] [place] [address] * Osmolality, Urine (09/09/2023 11:28 AM CDT) Osmolality, U 380 150 - 1150 mOsm/kg 09/09/2023 12:19 PM CDT DTL Urine 09/09/2023 11:2 8 AM CDT 09/09/2023 11:58 AM CDT Jeffery Church M.D. LAB URINE ORDERA BLES [facility] [address] [place], [place] [address] [place] [address] * (ABNORMAL) Microscopic Manual (09/09/2023 11:28 AM [...] Jeffery Church M.D. LAB URINE ORDERA BLEBryon [facility] [address] [place], [place] [phone] [place] [address] [address] [place] [address] * (ABNORMAL) Gram Stain, Urine (09/09/2023 11:28 AM CDT) Source Urine, Urine, Straight Catheter 09/09/2023 11:58 AM CDT DTL Gram Stain, U Positive(A) Negative 09/09/2023 12:16 PM CDT DTL Comment: Few Gram-negative bacilli ? Yeast Urine 09/09/2023 11:2 8 AM CDT 09/09/2023 11:58 AM CDT Jeffery Church M.D. LAB URINE ORDERA SHELLY [facility] [address] [place] [address], [facility] [address] [place] [address] * (ABNORMAL) Bacterial Culture, Aerobic + Susceptibility, [...] Church M.D. LAB MICROBIOLOGY - GENERAL ORDERABLES [address] [address], [facility] [place] [address] * (ABNORMAL) Urinalysis, with Microscopic: Urine, Straight [...] 09/09/2023 1:02 PM CDT DTL Predicted Range [id number] mg/24 h 09/09/2023 1:02 PM CDT DTL Comment Micro done on <2.5 mL 09/09/2023 12:27 PM CDT DTL Urine (Urine, Straight Catheter) 09/09/2023 11:28 AM CDT 09/09/2023 11:58 AM CDT Jeffery Church M.D. LAB URINE ORDERA BLES [facility] [address] [place] [address], [facility] DTL [facility] [address] [place] [address] * US Kidneys Bilateral with Bladder (09/09/2023 [...] Church M.D. LAB BLOOD ADD-ON [facility] [address] [place] [address], [facility] [address] [place] [address] * (ABNORMAL) CBC with Differential, Blood (09/09/2023 [...] CDT Jeffery Church M.D. LAB BLOOD ADD-ON [facility] [address] [place] [address], [facility] STMA [facility] [address] [place] [address] [facility] [address] [place] [address] * (ABNORMAL) Basic Metabolic Panel (09/09/2023 8:04 [...] CDT Jeffery Church M.D. LAB BLOOD ADD-ON [facility] [address] [place] [address], [facility] [facility] [address] [place] [address] * Type and Screen (with Reflex Antibody [...] M.D. LAB BLOOD BANK T EST ORDERABLES [facility] [address] [place] [address], [facility] [address] [place] [address] documented in this encounter Visit Diagnoses Diagnosis [...] iodine/mL solution (OMNIPAQUE) As needed, Starting on e 09/13/23 at 1419, Intra-Op Given 09/13/2023 2:19 PM [...] min PRN, sedation, RASS -1, Starting on 09/13/23 at 1402, For 3 hours, Intraprocedure (RAD), [...] Do not give if patient has diarrhea. 1013 (Given - Provider: Leonardo Clark R.N.)2105 (Given [...] R.N.)2102 (Given - Provider: Brittanie Lewis R.N.) 903 (Given - Provider: Brittanie Lewis R.N.) sulfamethoxazole-trime [...] R.N.) 921 (Given - Provider: Brittanie Lewis R.N.)2101 (Given [...] patients 65 years of age or older 0571 (Given - Provider: Lilia Whitney R.N.)7309 (Given - Provider: Leonardo Clark R.N.) 0551 (Given - Provider: Lilia Whitney R.N.)210 (Given - Provider: Brittanie Lewis R.N.) 0904 [...] 0159 (New Bag - Provider: Lilia Whitney R.N.)0715 (Stopped - Provider: Leonardo Clark R.N.) heparin [...] Repeat anti-Xa: 6 hours after Heparin resumed 2 (New Bag - Provider: Lilia Whitney R.N. - Comment: verified by JAMEL Rasmussen) 0523 (New Bag - Provider: Lilia Whitney R.N. - Comment: verified by JAMEL Deleno)0711 (Handoff - Provider: Lilia Whitney R.N. - [...] Intraprocedure (RAD) 1406 (Given - Provider: Lars Chavez, RRitesh.)1409 (Given - Provider: Lars Chvaez, Terri.)1412 (Given - Provider: Lars Chavez R.N.) heparin [...] breaths/minute. 1406 (Given - Provider: Lars Chavez RJonahN.)1409 (Given - Provider: Lars Chavez R.N.) naloxone [...] documented as of this encounter Care Teams Threader Operator Relationship Specialty Start Date End Date Elsewhere, Pcp PCP - General Internal Medicine 08/13/23 documented as of this encounter
--- OUTSIDE RECORDS SUMMARY | 2023-09-30 12:44 | XMS_ITS | Encounter Summary ---
Author Organization [facility] Address [address] [place] [address] Care Team Providers Care Cloth Dye Range Operator Name Role Phone Elsewhere, Pcp Primary Care Provider Unavailabl e Reason for Referral * Outpatient (Routine) - Authorized Specialty Diagnoses / Procedures Referred By Contac t Referred To Contact Urology Diagnoses Hematuria Paula Benton M.D. [address] [place] [address] [facility] Referral ID Status Reason Start Date Expiration Date V isits Requested Visits Authorized [id number] Authorized 09/15/2023 03/16/2025 1 1 Encounter Details Date Type Department Care Team (Late st Contact Info) Description 09/15/2023 Clinical Communication [facility] [address] [place] [address] Yasmine Loco Social History Tobacco Use Types [...] your living situation today? I have a [facility] place to live 09/09/2023 Sex and Gender Information Value Date Recorded Sex Assigned at Not on file Gender Identity Not on file Sexual Orientation Not on file documented as of this encounter Plan of Treatment Upcoming Encounters Date Type Department Care Team (Late st Contact Info) Description 10/14/2023 1:00 PM CDT Procedure visit Department of Urology in [place], [place] [address] [place] [address] Paula Hernandez M.D. [address] [place] [address] Scheduled Referrals Name Type Priority Associated Diagnoses [...] documented as of this encounter Care Teams Cloth Dye Range Operator Relationship Specialty Start Date End Date Elsewhere, Pcp PCP - General Internal Medicine 08/13/23 documented as of this encounter
--- OUTSIDE RECORDS SUMMARY | 2023-09-30 12:44 | XMS_ITS | Encounter Summary ---
Author Organization [facility] Address [address] [place] [address] Care Team Providers Care Cut Plug Packer Name Role Phone Elsewhere, Pcp Primary Care Provider Unavailabl e Encounter Details Date Type Department Care Team (Late st Contact Info) Description 09/09/2023 12:10 PM CDT Ancillary Procedure Department of Nursing Social History Tobacco Use Types Packs/Day Years Used Date Smoking Tobacco: Never Smokeless Tobacco: Never [facility] Utilities Answer Date Recorded In the past 12 months has e electric, gas, oil, or water [employer] threatened to shut off services in your [...] have a [facility] place to live 09/09/2023 Sex and Gender Information Value Date Recorded Sex Assigned at Not on file Gender Identity Not on file Sexual Orientation Not on file documented as of this encounter Plan of Treatment Upcoming Encounters Date Type Department Care Team (Late st Contact Info) Description 10/14/2023 1:00 PM CDT Procedure visit Department of Urology in [place], [place] [address] [place] [address] Palua Hernandez M.D. [address] [place] [address] documented as of this encounter Procedures Procedure [...] on filedocumented in this encounter Care Teams Cut Plug Packer Relationship Specialty Start Date End Date Elsewhere, Pcp PCP - General Internal Medicine 08/13/23 documented as of this encounter
--- OUTSIDE RECORDS SUMMARY | 2023-09-30 12:44 | XMS_ITS | Encounter Summary ---
Author Organization [facility] Address [address] [place] [address] Care Team Providers Care Clay Structure Builder And Servicer Name Role Phone Elsewhere, Pcp Primary Care Provider Unavailabl e Encounter Details Date Type Department Care Team (Late st Contact Info) Description 09/09/2023 Documentation Department of Urology in [place], [place] [address] [place] [address] Ko Victoria M.D. [address] [place] [address] Social History Tobacco Use Types Packs/Day Years Used Date Smoking Tobacco: Never Smokeless Tobacco: Never [facility] Utilities Answer Date Recorded In the past 12 months has [facility] electric, gas, oil, or water [employer] threatened to shut off services in your [...] [facility] place to live 09/09/2023 Sex and [...] CDT Procedure visit Department of Urology in [place], [place] [address] [place] [address] Paula Hernandez M.D. [address] [place] [address] documented as of this encounter Visit Diagnoses Not on filedocumented in this encounter Care Teams Clay Structure Builder And Servicer Relationship Specialty Start Date End Date Elsewhere, Pcp PCP - General Internal Medicine 08/13/23 documented as of this encounter
--- OUTSIDE RECORDS SUMMARY | 2023-09-30 12:44 | XMS_ITS | Encounter Summary ---
Author Organization [facility] Address [address] [place] [address] Care Team Providers Care It Operations Analyst Name Role Phone Elsewhere, Pcp Primary Care Provider Unavailabl e Encounter Details Date Type Department Care Team (Late st Contact Info) Description 09/06/2023 Orders Only Section of Hyperbaric Medicine in [place], [place] [address] [place] [address] Kira Ferraro, ARUN, C.N.P., M.S.N. [address] [place] [address] Social History Tobacco Use Types Packs/Day Years Used Date Smoking Tobacco: Never Smokeless Tobacco: Never [facility] Utilities Answer Date Recorded In the [...] your living situation today? I have a [facility] place to live 09/09/2023 Sex and Gender Information Value Date Recorded Sex Assigned at Not on file Gender Identity Not on file Sexual Orientation Not on file documented as of this encounter Plan of Treatment Upcoming Encounters Date Type Department Care Team (Late st Contact Info) Description 10/14/2023 1:00 PM CDT Procedure visit Department of Urology in [place], [place] [address] [place] [address] Paula Hernandez M.D. 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
--- OUTSIDE RECORDS SUMMARY | 2023-09-30 12:44 | XMS_ITS | Encounter Summary ---
Author Organization [facility] Address [address] [place] [address] Care Team Providers Care Neurology Professor Name Role Phone Elsewhere, Pcp Primary Care Provider Unavailabl e Encounter Details Date Type Department Care Team (Late st Contact Info) Description 09/21/2023 Clinical Communication Department of Urology in [place], [place] [address] [place] [address] Paula Hernandez M.D. [address] [place] [address] Social History Tobacco Use Types Packs/Day Years Used Date Smoking Tobacco: Never Smokeless Tobacco: Never [facility] Utilities Answer Date Recorded In the past 12 months has [facility] electric, gas, oil, or water [employer] threatened to shut off services in your [...] your living situation today? I have a [facility] place to live 09/09/2023 Sex and Gender Information Value Date Recorded Sex Assigned at Not on file Gender Identity Not on file Sexual Orientation Not on file documented as of this encounter Miscellaneous Notes * Telephone Encounter - Paula Hernandez M.D. - 09/21/2023 2:37 PM CDT I called the patient's [place] physician who he saw yesterday, 09/19 in [...] CDT Procedure visit Department of Urology in [place], [place] [address] [place] [address] Paula Hernandez M.D. [address] [place] [address] documented as of this encounter Visit Diagnoses Not on filedocumented in this encounter Care Teams Neurology Professor Relationship Specialty Start Date End Date Elsewhere, Pcp PCP - General Internal Medicine 08/13/23 documented as of this encounter
--- OUTSIDE RECORDS SUMMARY | 2023-09-30 12:44 | XMS_ITS ---
Author Organization [facility] Address [address] [place] [address] Care Team Providers Care Iron Molder Helper Name Role Phone Unavailable Unavailable Unavailable Surgery Details Not on file Complications Check Surgery Details section. Procedure Estimated Blood Loss Check Surgery Details section. Procedure Findings Check Surgery Details section. Procedure Specimens Taken Check Surgery Details section.
--- OUTSIDE RECORDS SUMMARY | 2023-09-30 12:44 | XMS_ITS | Encounter Summary ---
Author Organization [facility] Address [address] [place] [address] Care Team Providers Care Water Treatment Plant Supervisor Name Role Phone Elsewhere, Pcp Primary Care Provider Unavailabl e Reason for Referral * Outpatient (Routine) - Authorized Specialty Diagnoses / Procedures Referred By Contac t Referred To Contact Diagnoses Hematuria Gross Procedures DX Chest AP or PA and Lateral 2 Views Paula Hernandez M.D. [address] [place] [address] [facility] Referral ID Status Reason Start Date Expiration Date V isits Requested Visits Authorized [id number] Authorized 09/16/2023 09/15/2024 1 1 Encounter Details Date Type Department Care Team (Late st Contact Info) Description 09/16/2023 Orders Only Department of Urology in [place], [place] [address] [place] [phone] Paula Hernandez M.D. [address] [place] [address] Hematuria Gross (Primary Dx) Social History Tobacco Use Types Packs/Day Years Used Date Smoking Tobacco: Never Smokeless Tobacco: Never [facility] Utilities Answer [...] your living situation today? I have a [facility] place to live 09/09/2023 Sex and Gender Information Value Date Recorded Sex Assigned at Not on file Gender Identity Not on file Sexual Orientation Not on file documented as of this encounter Plan of Treatment Upcoming Encounters Date Type Department Care Team (Late st Contact Info) Description 10/14/2023 1:00 PM CDT Procedure visit Department of Urology in [place], [place] [address] [place] [address] Paula Hernandez M.D. [address] [place] [address] Scheduled Orders Name Type Priority Associated Diagnoses [...] documented as of this encounter Care Teams Water Treatment Plant Supervisor Relationship Specialty Start Date End Date Elsewhere, Pcp PCP - General Internal Medicine 08/13/23 documented as of this encounter
--- OUTSIDE RECORDS SUMMARY | 2023-09-30 12:44 | XMS_ITS | Encounter Summary ---
Author Organization [facility] Address [address] [place] [address] Care Team Providers Care Analytical Lab Analyst Name Role Phone Elsewhere, Pcp Primary Care Provider Unavailabl e Encounter Details Date Type Department Care Team (Late st Contact Info) Description 09/27/2023 Clinical Communication Department of Urology in [place], [place] [address] [place] [address] Puala Hernandez M.D. [address] [place] [address] Social History Tobacco Use Types Packs/Day Years Used Date Smoking Tobacco: Never Smokeless Tobacco: Never [facility] Utilities Answer Date Recorded In the past 12 months has [facility] electric, gas, oil, or water [employer] threatened to shut off services in your [...] a [facility] place to live 09/09/2023 Sex and Gender Information Value Date Recorded Sex Assigned at Not on file Gender Identity Not on file Sexual Orientation Not on file documented as of this encounter Miscellaneous Notes * Telephone Encounter - Paula Hernandez M.D. - 09/27/2023 7:58 PM CDT called patient[facility] to address questions re his prostate cancer. Missed their office hours (8-4), but I did leave a detailed message as their office had requested. Encouraged them to reach out if additional questions or concerns arise. documented in this encounter Plan of Treatment Upcoming Encounters Date Type Department Care Team (Late st Contact Info) Description 10/14/2023 1:00 PM CDT Procedure visit Department of Urology in [place], [place] [address] [place] [address] Paula Hernandez M.D. [address] [place] [address] documented as of this encounter Visit Diagnoses Not on filedocumented in this encounter Care Teams Analytical Lab Analyst Relationship Specialty Start Date End Date Elsewhere, Pcp PCP - General Internal Medicine 08/13/23 documented as of this encounter
--- OUTSIDE RECORDS SUMMARY | 2023-09-30 12:44 | XMS_ITS | Referral Summary ---
Author Organization [facility] Address [address] [place] [address] Care Team Providers Care Grader Green Meat Name Role Phone Elsewhere, Pcp Primary Care Provider Unavailabl e Source Comments Patient records contain information from all sites at [facility]. For routine questions regarding patient records, call [phone] during business hours, M-F 8:00 AM - 5:00 PM Central Time. Record requests for emergency care only can be directed to [phone] at any time.[facility] Encounters Date Type Department Care Team Description 09/27/2023 Clinical Communication Department of Urology in [place], [place] [address] [place] [address] Paula Hernandez M.D. 09/21/2023 Clinical Communication Department of Urology in [place], [place] [address] [place] [address] Paula Hernandez M.D. 09/16/2023 Clinical Communication Department of Urology in [place], [place] [address] [place] [address] Provider, Unknown follow up questions 09/16/2023 Orders Only Department of Urology in [place], [place] [address] [place] [address] Paula Hernandez M.D. Hematuria Gross (Primary Dx) 09/15/2023 Clinical Communication [facility] [address] [place] [address] Yasmine Loco 09/09/2023 7:24 AM CDT - 09/15/2023 5:28 PM CDT Hospital Encounter [facility], [facility], Sixth Floor [address] [place] [phone] Gerri Merrill M.D., Ph.D. Sumit Holbrook M.D. Hematuria (Primary Dx) Discharge Disposition: Home or Self Care 09/09/2023 12:10 PM CDT Ancillary Procedure Department of Nursing 09/09/2023 Documentation Department of Urology in [place], [place] [address] [place] [phone] Ko Victoria M.D. 09/06/2023 Orders Only Section of Hyperbaric Medicine in [place], [place] [address] [place] [phone] Kira Ferraro APRN, C.N.P., M.S.N. 09/06/2023 Clinical Communication [facility] [address] [place] [phone] Yasmine Loco 08/30/2023 7:35 PM CDT - 09/05/2023 4:09 PM CDT Hospital Encounter [facility], First Floor [address] [place] [phone] Kirstin Hughes M.D. Thompson, R. Houston, M.D. Hematuria (Primary Dx); Tachycardia; Hematuria Gross Discharge Disposition: Home-Health Care Svc 09/01/2023 10:05 AM CDT Ancillary Procedure Department of Nursing 08/31/2023 12:25 PM CDT Ancillary Procedure Department of General Surgery 08/31/2023 12:34 PM CDT Anesthesia Event [facility] [address] [place] [phone] Joe Stoll M.D. Benjamin Williamson APRN, PLATE DEVELOPER 08/31/2023 12:36 PM CDT - 08/31/2023 2:31 PM CDT Surgery [facility] [address] [place] [phone] Mayur Alvarez M.D. CYSTOSCOPY EVACUATION CLOTS 08/30/2023 Documentation Department of Urology in [place], [place] [address] [place] [phone] Corin Ring M.D. 08/30/2023 Intake [facility] 08/26/2023 Orders Only Department of Urology in [place], [place] [address] [place] [phone] Paula Hernandez M.D. 08/13/2023 3:42 PM CDT - 08/26/2023 4:11 PM CDT Hospital Encounter [facility], [facility], Sixth Floor [address] [place] [phone] Darnell Garcia M.D. Chow, George K, M.D. Decline Functional Status [R53.81] (Primary Dx); Hematuria [R31.9] Discharge Disposition: Home or Self Care 08/23/2023 12:45 AM CDT Ancillary Procedure Department of Nursing 08/15/2023 8:30 AM CDT Anesthesia Event [facility] [address] [place] [phone] Hayde Song M.D. 08/15/2023 7:55 AM CDT - 08/15/2023 11:23 AM CDT Surgery [facility] [address] [place] [phone] Boubacar Brock M.D. Palliative EXPLORATORY LAPAROTOMY, CYSTOTOMY CLOSURE, RIGHT URETERAL STENT EXCHANGE 08/13/2023 4:35 PM CDT Ancillary Procedure Department of Radiology in [place], [place] [address] [place] [address] Carlos Alberto Henson M.D. 08/13/2023 Intake RST [...] Tobacco: Never Tobacco Cessation:Counseling Given: Not Answered [facility] Ayannahities Answer Date Recorded In the past 12 months has [facility] [employer] gas, oil, or water [employer] threatened to shut off services in your [...] your living situation today? I have a [facility] place to live 09/09/2023 Sex [...] CDT Procedure visit Department of Urology in [place], [place] [address] [place] [address] Paula Hernandez M.D. 200 [place] [address] Medical Devices Implanted Type Area Student Advisor Device Identifier Shelf Expiration Date Model / Serial / Lot Clp Hrzn Ti 6 Clp Lg Orng - [id number] Implanted:Qt y: 1 on 08/15/2023 by Boubacar Brock M.D. at [facility] Hardware e.g. pins/screws /rods Abdom[employer] [id number] 02/29/2028 [id number] / / [id number] Clp Hrzn Ti 6 Clp Lg Orng - [id number] Implanted:Qt y: 1 on 08/15/2023 by Boubacar Brock M.D. at [facility] Hardware e.g. pins/screws /rods Abdomen [employer] [id number] 02/29/2028 [id number] / / [id number] 4 Clp Hrzn Ti 6 Clp Md Monty - [id number] Implanted:Qt y: 1 on 08/15/2023 by Boubacar Brock M.D. at [facility] Hardware e.g. pins/screws /rods Abdom[employer] [id number] 03/13/2028 [id number] / / [id number] 1 Clp Hrzn Ti 6 Clp Md Monty - [id number] Implanted:Qt y: 1 on 08/15/2023 by Boubacar Brock M.D. at [facility] Hardware e.g. pins/screws /rods Abdomen [employer] [id number] 03/21/2028 [id number] / / [id number] Stnt Uret Inl 6fx24 - [id number] Implanted:Qt y: 1 on 08/15/2023 by Jakob De Paz M.D. at [facility] Ureteral Stent N/A: Ureter [employer]ard [id number] 11/18/2027 [id number] / / [id number] Procedures Procedure Name Priority Date/Time Associated Diagnosis [...] LINE INSERTION Routine 08/15/2023 9:51 AM CDT LA US GUIDE VASC ACCESS Routine 08/15/2023 9:51 AM CDT LA ARTL CATH/CNULA MONITOR PERC Routine 08/15/2023 9:51 [...] BLOOD ADD-ON Performing Organization Address [facility] Co de Phone Number [facility] [address] [place], [place] [phone] [place] [address] * Heparin Anti-Xa Assay (09/14/2023 3:19 AM [...] [facility]/ZIP Co de Phone Number [facility] [address] [place] [address], [facility] DTL [facility] [address] * IR Nephrostomy Tube Placement Left (09/13/2023 2:20 PM CDT) Anatomical Region Laterality Modality Genito Urinary, Vascular Int erventional RST LOS, Vascular Interventional ARZ LOS, Vascular Interventional FLA LOS Left X-Ray Angiography Impressions 09/13/2023 2:33 PM CDT Left 10 Estonian percutaneous nephrostomy tube placement. EP Narrative 09/13/2023 [...] tract was further dilated and a 10 Estonian nephrostomy tube was placed with loop formed [...] sedation timewas: 9 minutes. IMPRESSION: Left 10 Estonian percutaneous nephrostomy tube placement. EP Latisha CHOUDHARY IR PROCEDURE S * Bacterial Culture, Aerobic + Susceptibility (09/13/2023 2:17 PM CDT) Bacterial Culture, Aerobic + Susc No growth after 5 days of incubation. 09/18/2023 12:35 PM CDT DTL Fluid (Kidney, Left) 09/13/2023 2:17 PM CDT 09/13/2023 3:56 PM CDT Comment:Specimen Source Site : Fluid Latisha Whitehead M.D. LAB MICROBIOLOGY - GENERAL ORDERABLES Performing Organization Address City/[facility]/ZIP Co de Phone Number [facility] [address] [place] [address], [facility] [address] [place] [address] * Gram Stain (09/13/2023 2:17 PM CDT) Gram Stain No organisms seen. White blood cells, Rare 09/13/2023 9:02 PM CDT DTL Fluid (Kidney, Left) 09/13/2023 2:17 PM CDT 09/13/2023 3:56 PM CDT Comment:Specimen Source Site : Fluid Latisha Whitehead M.D. LAB MICROBIOLOGY - GENERAL ORDERABLES Performing Organization Address [facility] Co de Phone Number [facility] [address] [place] [address], [facility] [address] [place] [address] * Bacterial Culture, Anaerobic + Susceptibility (09/13/2023 2:17 PM CDT) Bacterial Culture, Anaerobic + Susc No growth after 14 days of incubation. 09/27/2023 8:04 AM CDT DTL Fluid (Kidney, Left) 09/13/2023 2:17 PM CDT 09/13/2023 3:56 PM CDT Comment:Specimen Source Site : Fluid Latisha Whitehead M.D. LAB MICROBIOLOGY - GENERAL ORDERABLES Performing Organization Address City/[facility]/ZIP Co de Phone Number [facility] [address] [place] [address], [facility] [address] [place] [address] * APTT (Activated Partial Thromboplastin Time) (09/13/2023 5:56 AM CDT) Only the most recent of18 resultswithin the time period is included. [facility] Activated Partial Thrombopl Time, P 35 25 - 37 sec 09/13/2023 7:14 AM CDT DTL Blood (Blood, Venous) 09/13/2023 5:56 AM CDT 09/13/2023 6:53 AM CDT Sumit Holbrook M.D. LAB BLOOD ADD-ON [facility] [address] [place] [address], [facility] [address] [place] [address] * (ABNORMAL) Basic Metabolic Panel (09/13/2023 5:56 AM CDT) Only the most recent of14 resultswithin the time period is included. [facility] Potassium, S 3.7 3.6 - 5.2 mmol/L [...] Paula Hernandez M.D. LAB BLOOD ADD-ON [facility] [address] [place] [address], [place] DTL [facility] [address] [place] [address] * NM Kidney DMSA (09/12/2023 12:21 PM [...] LOS, Ul trasound ARZ LOS, Ultrasound FLA [facility] Ultrasound Impressions 09/11/2023 8:55 AM CDT Nondistended [...] RAD IMAGI NG PROCEDURES Performing Organization Address City/[facility]/ZIP Co de Phone Number IINJ NA * Osmolality, Urine (09/09/2023 11:28 AM CDT) Only the most recent of2 resultswithin the time period is included. Osmolality, U 380 150 - 1150 mOsm/kg 09/09/2023 12:19 PM CDT DTL Urine 09/09/2023 11:2 8 AM CDT 09/09/2023 11:58 AM CDT Jeffery Church M.D. LAB URINE ORDERA BLES Performing Organization Address City/[facility]/ZIP Co de Phone Number [facility] [address] [place] [address], [facility] DTL [facility] [address] [place] [address] * (ABNORMAL) Dipstick, Urine (09/09/2023 11:28 AM [...] LAB URINE ORDERA BLEBryon Performing Organization Address [facility] de Phone Number [facility] [address] [place] [address] * pH, Random, Urine (09/09/2023 11:28 AM CDT) Only the most recent of2 resultswithin the time period is included. pH, Random, U 6.3 4.5 - 8.0 09/09/2023 12:19 PM CDT DTL Urine 09/09/2023 11:2 8 AM CDT 09/09/2023 11:58 AM CDT Jeffery Church M.D. LAB URINE STEFFANY CROWDERBryon Performing Organization Address [facility] de Phone Number [facility] [address] [place] [address], [place] [address] * (ABNORMAL) Microscopic Manual (09/09/2023 11:28 AM [...] Church M.D. LAB URINE ORDERA BLES [facility] [address] [place] [address], [facility] [address] [place] [address] * (ABNORMAL) Bacterial Culture, Aerobic + Susceptibility, [...] MICROBIOLOGY - GENERAL ORDERABLES Performing Organization Address City/[facility] Co de Phone Number [address] [address], [place] [address] * (ABNORMAL) Gram Stain, Urine (09/09/2023 11:28 AM CDT) Source Urine, Urine, Straight Catheter 09/09/2023 11:58 AM CDT DTL Gram Stain, U Positive(A) Negative 09/09/2023 12:16 PM CDT DTL Comment: Few Gram-negative bacilli ? Yeast Urine 09/09/2023 11:2 8 AM CDT 09/09/2023 11:58 AM CDT Jeffery Church M.D. LAB URINE ORDERA BLES Performing Organization Address [facility] Co de Phone Number [facility] [address] [place] [address], [facility] [place] [address] * (ABNORMAL) Urinalysis, with Microscopic: Urine, Straight [...] 09/09/2023 1:02 PM CDT DTL Predicted Range 2480-14758 mg/24 h 09/09/2023 1:02 PM CDT DTL Comment Micro done on <2.5 mL 09/09/2023 12:27 PM CDT DTL Urine (Urine, Straight Catheter) 09/09/2023 11:28 AM CDT 09/09/2023 11:58 AM CDT Jeffery Church M.D. LAB URINE ORDERA [facility] Organization Address City/State/ZIP Co de Phone Number [facility] [address] [place] [address], [facility] [address] [place] [address] * US Kidneys Bilateral with Bladder (09/09/2023 [...] clot within the urinarybladder. Jeffery Church M.D. [facility] US PROCEDURE S * Prothrombin Time (PT) [...] Jeffery Church M.D. LAB BLOOD ADD-ON [facility] [address] [place] [address], [facility] [address] [place] [address] * (ABNORMAL) CBC with Differential, Blood (09/09/2023 [...] Jeffery Church M.D. LAB BLOOD ADD-ON [facility] [address] [place] [address], [facility] STMA [facility] [address] [place] [address] DHPM [facility] [address] [place] [address] * Type and Screen (with Reflex Antibody [...] M.D. LAB BLOOD BANK T EST ORDERABLES [facility] [address] [place] [address], [facility] STRM [facility] [address] [place] [address] * Potassium (09/05/2023 4:56 AM CDT) Only the most recent of2 resultswithin the time period is included. Potassium, S 3.6 3.6 - 5.2 mmol/L 09/05/2023 5:49 AM CDT DTL Blood (Blood, Venous) 09/05/2023 4:56 AM CDT 09/05/2023 5:22 AM CDT Roxy Romero M.D. LAB BLOOD ADD-ON [facility] [address] [place] [address], [facility] DTL [facility] [address] [place] [address] * [place] Fluoro Less Than 1 Hour [...] M.D. IMG FLUOROSCOPY PROCEDURES Performing Organization Address City/[facility] Co de Phone Number 152 HOS [...] Vieira M.D., M.S. LAB BLOO D ADD-ON [facility] [address] [place] [address] * Lactate (08/30/2023 9:50 PM CDT) Lactate, P 1.8 0.5 - 2.2 mmol/L 08/30/2023 10:09 PM CDT STMA Blood (Blood, Venous) 08/30/2023 9:50 PM CDT 08/30/2023 9:55 PM CDT Shannan Correa D.O., M.H.A. LAB BLOOD NON ADD-ON [facility] [address] [place] [address], [facility] [address] [place] [address] * DX Chest AP or PA and [...] included. Ventricular Rate ECG/Min 145 BPM MUSE LA Interval 136 ms MUSE QRSD Interval 64 ms MUSE QT Interval 260 ms MUSE QTC Interval 403 ms MUSE P Perry 44 degrees MUSE R Perry 9 degrees MUSE T Wave Perry -76 degrees MUSE 08/30/2023 7:44 PM CDT [...] [facility]/ZIP Co de Phone Number [facility] [address] [place], [place] [address] [place] [address] [address] [place] [address] * Magnesium (08/26/2023 3:20 AM CDT) Only the most recent of6 resultswithin the time period is included. Magnesium, S 2.1 1.7 - 2.3 mg/dL 08/26/2023 4:04 AM CDT DTL Blood (Blood, Venous) 08/26/2023 3:20 AM CDT 08/26/2023 3:50 AM CDT Boubacar Brock M.D. LAB BLOOD ADD-ON Performing Organization Address City/[facility]/ZIP Co de Phone Number [facility] [address] [place] [address], [facility] [address] [place] [address] * (ABNORMAL) Phosphorus Inorganic (08/23/2023 9:58 PM CDT) Only the most recent of2 resultswithin the time period is included. [facility] Phosphorus (Inorganic), S 2.1(L) 2.5 - 4.5 mg/dL 08/23/2023 10:45 PM CDT DT Blood (Blood, Venous) 08/23/2023 9:58 PM CDT 08/23/2023 10:30 PM CDT Paula Hernandez M.D. LAB BLOOD ADD-ON Performing Organization Address City/[facility]/ZIP Co de Phone Number [facility] [address] [place], [place] [address] [place] [address] * Triglycerides (08/23/2023 3:42 AM CDT) Only the most recent of2 resultswithin the time period is included. [facility] Triglycerides 106 mg/dL 08/23/2023 4:50 AM CDT DT Comment: ----REFERENCE VALUE---- Normal: <150 mg/dL Borderline High: 150-199 mg/dL High: 200-499 mg/dL Very High: > or =500 mg/dL Fasting (8 HR or more) Yes 08/23/2023 4:19 AM CDT DT Blood (Blood, Venous) 08/23/2023 3:42 AM CDT 08/23/2023 4:19 AM CDT Boubacar Brock M.D. LAB BLOOD ADD-ON [facility] [address] [place] [address], [facility] [address] [place] [address] * Glucose, POCT (08/22/2023 11:38 PM CDT) [facility] Glucose, POCT, B 117 70 - 140 mg/dL 08/23/2023 1:06 AM CDT PCLX Site Capillary 08/23/2023 1:06 AM CDT PCLX Last Intake NPO 08/23/2023 1:06 AM CDT PCLX Blood 08/22/2023 11:3 8 PM CDT 08/23/2023 1:06 AM CDT Unknown Provider LAB POCT ORDERABLES- MANUAL POC [facility] [address] [place] [address], [facility] PCLX [facility] POC [address] [place] [address] * CT Abdomen Pelvis without IV Contrast [...] colon likelyrepresenting mild proctocolitis. Paula Hernandez M.D. [facility] CT PROCEDURES * Creatinine, Body Fluid (08/22/2023 [...] transport rates. All other fluids refer to www.[email or web address] for further interpretive information. This test has been modified from the crtt's instructions. Its performance characteristics were determined by [facility] in a manner consistent with CLIA requirements. This test has not been cleared or approved by the U.S. Food and Drug Administration. Fluid Type, Creatinine Fluid, Abdomen 08/22/2023 3:52 PM CDT DTL Fluid (Abdomen) 08/22/2023 3 :30 PM CDT 08/22/2023 6:36 PM CDT Corin Ring M.D. LAB BODY FLUIDS AND STOOLS ORDERABLES Performing Organization Address City/State/[facility] Co de Phone Number [facility] [address] [place] [address], [facility] [address] [place] [address] * IR PICC Line Placement (08/22/2023 8:35 AM CDT) Anatomical Region Laterality Modality Chest, Pelvis, Abdomen, Vasc ular Interventional RST LOS, Vascular Interventional ARZ LOS, Vascular Interventional FLA LOS N/A X-Ray Angiography Impressions 08/22/2023 9:05 AM CDT Placement of a right IJ vein single-lumen 4 Estonian tunneled PowerPICC ready for immediate use. NR [...] advanced into the IVC and a 4 Estonian dilator advanced over the wire and attached to a one-way stopcock. A suitable exit site in the right anterior chest was anesthetized and a small incision made. A 4 Estonian single-lumen PowerPICC was then tunneled from the [...] Wireadvanced into the IVC and a 4 Estonian dilator advanced over the wire andattached to a one-way stopcock. A suitable exit site in the right anteriorchest was anesthetized and a small incision made. A 4 Estonian single-lumen PowerPICC was then tunneled fromthe skin [...] of a right IJ vein single-lumen 4 Estonian tunneled PowerPICCready for immediate use. NR Kimi [...] CDT Latisha Whitehead M.D. LAB BLOOD ADD-ON [facility] [address] [place] [address], [facility] [address] [place] [address] * Place peripherally inserted central catheter (PICC) [...] and management can be found on the [employer] site. Link [email or web address]/clinical-[email or web address]/[email or web address]/[email or web address] Findings discussed with ??Tayler Greenwood, ?? ([id number]) on 08/17/2023 7:11 PM. Procedure Note Jj [...] management can be found on theAskMayoExpert site. [email or web address]/[email or web address]/[email or web address]/cpm [email or web address] 1725 Findings discussed with Tayler Greenwood MD ([id number]) on 08/17/2023 7:11 PM. IMPRESSION: 1. Aging, [...] M.D. LAB BLOOD NON ADD-O N [facility] [address] [place] [address] * Patient Status (08/15/2023 11:56 AM CDT) Only the most recent of2 resultswithin the time period is included. Temperature 36.2 37.0 deg C 08/15/2023 12:04 PM CDT STMA Blood 08/15/2023 11:5 6 AM CDT 08/15/2023 12:03 PM CDT Rae Gonzalez APRN, PLATE DEVELOPER, DNAP LAB BLOO D NON ADD-ON Performing Organization Address City/[facility]/ZIP Co de Phone Number [facility] [address] [place] [address] * Sodium, B (08/15/2023 11:56 AM CDT) Only the most recent of2 resultswithin the time period is included. Sodium, B 135 135 - 145 mmol/L 08/15/2023 12:06 PM CDT STMA Blood (Blood, Arterial Line) 08/15/2023 11:56 AM CDT 08/15/2023 12:03 PM CDT Hayde Song M.D. LAB BLOOD NON ADD-O N [facility] 200 [place] [address] * (ABNORMAL) Blood Gas with Coox, Arterial [...] M.D. LAB BLOOD NON ADD-O N [facility] [address] [place] [address], [facility] [address] [place] [address] * Potassium, Blood (08/15/2023 11:56 AM CDT) [...] [facility]/ZIP Co de Phone Number [facility] [address] [place], [place] [address] [place] [address] 200 [place] [address] * (ABNORMAL) Glucose, Whole Blood (08/15/2023 11:56 AM CDT) Only the most recent of2 resultswithin the time period is included. Glucose 144(H) 70 - 140 mg/dL 08/15/2023 12:06 PM CDT STMA Blood (Blood, Arterial Line) 08/15/2023 11:56 AM CDT 08/15/2023 12:03 PM CDT Hayde Song M.D. LAB BLOOD ADD-ON Performing Organization Address [facility] Co de Phone Number [facility] [address] [place], [place] [address] [address] [place] [address] * (ABNORMAL) Calcium, Ionized (08/15/2023 11:56 AM CDT) Only the most recent of2 resultswithin the time period is included. Calcium, Ionized, B 4.53(L) 4.65 - 5.30 mg/dL 08/15/2023 12:07 PM CDT STMA Blood (Blood, Arterial Line) 08/15/2023 11:56 AM CDT 08/15/2023 12:03 PM CDT Narrative Authorizing Provider Result Abdifatah Song M.D. LAB BLOOD NON ADD-O N Performing Organization Address City/[facility] Co de Phone Number [facility] [address] [place] [address], [facility] [address] [place] [address] * LA ARTL CATH/CNULA MONITOR PERC, LA US GUIDE VASC ACCESS, LDA ANE ARTERIAL [...] ETT location: oral VL device: glide scope Atlantic scope blade size: 4 Tube size: 7.5 [...] time period is included. Pathologist [facility] Bacteria/Leyla da Culture, Blood No growth after 5 days of incubation. 08/20/2023 6:02 AM CDT DT Blood (Blood, Peripheral Draw) 08/15/2023 3:33 AM CDT 08/15/2023 5:58 AM CDT Comment:Specimen Source Site : Blood Narrative [facility] - 08/20/2023 6:02 AM CDT Received Bactec aerobic and Bactec anaerobic bottles Carlos Alberto Henson M.D. LAB MICROBIOLOGY - [facility] ORDERABLES [facility] [address] [place] [address], [facility] [address] [place] [address] * (ABNORMAL) Hepatic Function Panel (08/13/2023 5:27 PM CDT) Pathologist [facility] Bilirubin, Total, S 0.8 0.0 - 1.2 [...] Carlos Alberto Henson M.D. LAB BLOOD ADD-ON [address] [address], [facility] [address] [place] [address] * Interpretation of Outside CT Abdomen and [...] right renal atrophy. This is progressed since 2020.Since 2020, interval placement of a right nephro [...] Advance Directives For more information, please contact: [phone] * Full Code (Latest Code Status on File) Date Activated Date Inactivated Comments 08/30/2023 10:40 PM 09/05/2023 6:15 PM Question Answer Comments Full Code: Not Discussed Due to: Patient not available * Full Code Date Activated Date Inactivated Comments 08/13/2023 4:30 PM 08/26/2023 6:58 PM Question Answer Comments Full Code: Discussed Care Teams Grader [employer] Relationship Specialty Start Date End Date Elsewhere, Pcp PCP - General Internal Medicine 08/13/23
--- OUTSIDE RECORDS SUMMARY | 2023-09-30 12:44 | XMS_ITS | Encounter Summary ---
Author Organization [facility] Address [address] [place] [address] Care Team Providers Care Product Safety Technical Assistant Name Role Phone Elsewhere, Pcp Primary Care Provider Unavailabl e Reason for Visit * Reason Onset Date Comments follow up questions 09/16/2023 Encounter Details Date Type Department Care Team (Latest Contact Info) Description 09/16/2023 Clinical Communication Department of Urology in [place], [place] [address] [place] [address] Provider, Unknown follow up questions Social History Tobacco Use Types Packs/Day Years Used Date Smoking Tobacco: Never Smokeless Tobacco: Never [employer] Answer Date Recorded In the past 12 months has [facility] - your brands, gas, oil, or water [employer] threatened to shut off services in your [...] CDT Procedure visit Department of Urology in [place], [place] [address] [place] [address] Paula Hernandez M.D. 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
--- OUTSIDE RECORDS SUMMARY | 2023-09-30 12:44 | XMS_ITS ---
Author Organization [facility] Address [address] [place] [address] Care Team Providers Care Capacitor Tester Name Role Phone Elsewhere, Pcp Primary [...] On Elapsed Days Session Dose Total Dose [id number] 04/28/2020 32 300 cGy 6,000 cGy Lifetime Dose Tracking * Chemical Lifetime Dose Automatic Entry Manual Entr y Radiation 20.4 mGy 20.4 mGy 0 mGy Fluoro Time 2.005 minutes 2.005 minutes 0 minutes DAP (uGy-m2) 479.6 uGy-m2 479.6 uGy-m2 0 uGy-m2
--- OUTSIDE RECORDS SUMMARY | 2023-09-30 12:45 | XMS_ITS | Encounter Summary ---
Author Organization [facility] Address [address] [place] [address] Care Team Providers Care Tilting Head Band Sawyer Name Role Phone Elsewhere, Pcp Primary Care Provider Unavailabl e Reason for Visit * Reason Comments Urinary Problem Rapid Heart Rate Encounter Details Date Type Department Care Team (Late st Contact Info) Description 08/31/2023 12:36 PM CDT - 08/31/2023 2:31 PM CDT Surgery RST ROMB MAIN OR [address] [place] [address] Mayur Alvarez M.D. [address] [place] [address] CYSTOSCOPY EVACUATION CLOTS Social History Tobacco Use Types Packs/Day Years Used Date Smoking Tobacco: Never Smokeless Tobacco: Never [facility] Utilities Answer Date Recorded In the [...] your living situation today? I have a [facility] place to live 08/13/2023 Sex [...] PM CDT DISCHARGE SUMMARY BRIEF OVERVIEW Hospital: [facility] Discharge Provider: Mayur Alvarez M.D. Primary [...] CYSTOGRAM Mayur Alvarez M.D.White, Lindsay A, M.D. [facility] ROMB OR DISCHARGE DISPOSITION Home-Health Care [facility] [6] ACTIVE ISSUES REQUIRING FOLLOW UP OUTPATIENT [...] CONSULT TO CARE MANAGEMENT IP CONSULT TO MARINE ENGINEERING CONSULTANT WOUND CARE IP CONSULT TO HYPERBARIC MEDICINE CONDITION AT DISCHARGE improved Discharge instructions were provided to the patient and caregiver(s). documented in this encounter Discharge Instructions * Patient Instructions* Carmen Louis, R.N. - 08/31/2023 9:44 AM CDT The Senior LinkAge Line?? is a service of the [place] Board on Aging in partnership with [place]'s Area Agencies on Aging. It is a free service of the [facility] that connects older [place] and their families with the help they need. Call the Senior LinkAge Line?? at: [phone] M-F, 8am-4:30pm to connect with specialists that are available to assist you with your specific needsor check out their website at https://www.Synack.com * Attachments The following attachments cannot be sent through Care Everywhere. * Cefdinir (By mouth) (Lebanese) documented in this encounter Medications at Time [...] questions or concerns. Pager during business hours: [phone] Pager after hours: [phone] * Jeffery Valdez M.D. - 09/04/2023 10:34 [...] questions or concerns. Pager during business hours: [phone] Pager after hours: [phone] * Jeffery Valdez M.D. - 09/03/2023 4:10 [...] [facility]: Diet: Regular Activity: Ad [...] questions or concerns. Pager during business hours: [phone] Pager after hours: [phone] * Paula Hernandez M.D. - 09/02/2023 6:25 [...] questions or concerns. Pager during business hours: [phone] Pager after hours: [phone] * Michelle Willams, Terri., C.W.C.N. - 09/01/2023 11:43 AM CDT [facility] Wound RN consulted to assess Kalen Vega [...] Secondary Dressing Status Clean;Dry;Intact Changed by Wound ac/dc rewinder Ongoing management Nursing;Wound/medical device sales representative Urine Assessment Urine Color Colorless Hematuria Scale [place] Urine Appearance Clear;Sediment Head to toe skin [...] update the patient. Son stated that a Revenue Stamper visited the home and will be trying to assist both and patient with cares/coordination. OBJECTIVE Patient is located on [facility] room 111. Referrals were sent to the following agencies: Home Medical Care - Admitted Since 08/30/2023 Service Provider Request Status Selected Services Address Phone Fax Patient Preferred [facility] - [place] Pending - Request Sent N/A [address], [facility] [phone] -- [facility] Home Care Pending - Request Sent N/A [address], [facility] [address] [phone] -- Home Health Care Pending - Request Sent N/A [address], [facility] [address] -- [facility] Pending - Request Sent N/A [address] [facility] [phone] -- [facility] Pending - Request Sent N/A [address] [facility] [phone] -- [facility] Pending - Request Sent N/A [address] [facility] [address], [facility] [phone] -- [facility] Home Health Declined Facility Full N/A [address] [facility] [phone] -- ASSESSMENT / PLAN ASSESSMENT Residential Care Officer attempted to contact patient on room phone but was unable to get through. Case Manageras able to reach his son who will update that patient that the preferred home health agency was unable to accept and that referrals would be sent to other home health agencies. Requested services arenursing for wound care and catheter and PT/OT. PLAN Residential Care Officer will follow up with referrals. Case Manger [...] questions or concerns. Pager during business hours: [phone] Pager after hours: [phone] * Paula Hernandez M.D. - 08/31/2023 10:45 [...] risks associated with surgery and anesthesia including OK, stroke, and VTE were also discussed. Finally, [...] questions or concerns. Pager during business hours: [phone] Pager after hours: [phone] Associated attestation - Mayur Alvarez M.D. - 08/31/2023 12:14 PM CDT I agree with the Urology Chief Service plan for palliative cystoscopy under anesthesia, clot evacuation, proceed as indicated. We will plan for judicious irrigation given his recent bladder surgery and we will perform a cystogram at the end of the procedure. * Demarco Salazar PharmJonahD., R.Ph., [facility] - 08/31/2023 7:19 AM CDT Images from [...] discontinuation of antibiotics. Pedrito Salazar Pharm.D., R.Ph., [facility] Admission Medication History Note Adherence issues: [...] Status: Pharmacy/RN Complete Set By: Demarco Salazar, Karyn, R.Ph., [facility] at 08/31/2023 7:22 AM Taking? Last Dose [...] an 83 y.o. male transferred to the [facility] ED for further management of gross hematuria. [...] for CBI. He was then transferred to [facility] on 08/12; a CT cystogram was performed [...] was initiated on CBI and transferred to [facility] for further management. On my initial evaluation [...] to 24Fr Alcock and patient reconnected to I, with return of light peach urine on [...] for radiation proctitis SOCIAL HISTORY Lives in [place], [place] OBJECTIVE Vitals Blood pressure 134/84, pulse [...] & Screen Expiration 09/02/2023 23:59 Testing Location [place] Imagin08/30/23 EXAM: US URINARY BLADDER COMPARISON: CT [...] hematuria, clot obstruction and was transferred to [facility] for further evaluation and management. Urinary bladder ultrasound showing 5 cm clot burden; catheter draining on fast-rate CBI after multiple rounds of hand irrigation. Plan - Continue CBI - Q2h hr hand irrigations - NPO overnight pending am re-evaluation - Hold Plavix, Xarelto for now The above was discussed with Drs. Venegas and Lefty, the chief urology residents phone banker. Please page chief Urology [place] [phone] [place] [phone] afterhours. documented in this encounter Procedure Notes [...] on androgen deprivation therapy. 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 No scuba diving experience. Electronic health [...] prolonged inpatient stay, would request transfer to [facility] prior to initiation of hyperbaric [...] 11 Referral Reason: Discharge Planning Primary Language: Lebanese Strap Machine Operator Automatic Services Used: No Person(s) present during interview: Person(s) Present During Interview: patient and child Kar History of Present Illness #1 Hematuria Social History Support System: spouse, children, and home care staff Primary Caregiver: self and family Finance/Insurance Primary insurance: MEDICARE A AND B Secondary insurance: [employer] benefits: No Advance Directives Legal Decision Maker: Self Advance Directives: N/A Advance Directives Status: N/A OBJECTIVE Baseline Functional Status Baseline Activities of Daily Living Mobility: Requires aide of device Dressing: Independent Feeding: Independent Bathing: Independent Grooming: Independent Toileting: Independent Behavior: Appropriate, Pleasant, Calm, Cooperative, Oriented Communication: Can write, Talks, Understands speaking, Understands Lebanese, Reads Shopping: Needs assistance Medication Management: Independent Housekeeping: Needs assistance Meal Prep: Independent Assistive Devices: Walker - front wheeled, Eyeglasses, Hearing aid(s) Agency Name: [facility] Provided: Assisted/PT/OT Transportation: Support from family Baseline Services/Resources Primary care clinic and provider: ELSEWHERE, PCP Additional Resources: N/A Anticipated Needs Functional Status: Housekeeping, Shopping, Transportation use (drive car, use taxi/bus), Mobility, Transfer to/from bed, chair, etc., Bathing Assistive Devices: Eyeglasses, Hearing aid(s), Walker - front wheeled Services/Resources: Home health Agency Name: [facility] Provided: Assisted/PT/OT Anticipated Modifications to the Patient's Home: None Transportation Needs: Support from family Does the patient need discharge transport arranged?: No Anticipated Discharge Destination: Home-Health Care [facility] ASSESSMENT / PLAN Assessment: The mounter flutes and piccolos met with Kalen Vega to discuss his current hospitalization and home goingneeds. The patient was accompanied by son, Kar . The patient was a reliable historian. The role ofRN Residential Care Officer was reviewed. The patient reviewed his prior level of care and support system. The patient receives support from his and children. The patient described his living environment as a home with bedroom and bathroom on same floor withstairs to enter with rails. Housekeeping, grocery shopping, meal prep, and other household responsibilities have previously been completed by patient and patient's son. mounter flutes and piccolos discussed the patient's potential needs at dismissal based on their home setting, previous needs and responsibilities, homebound status, and relevant assessments with the patient. The patient will be safe and supported to return home with [facility] or previous services noted above [...] PICC removal he would not need care. Residential Care Officer will clarifywith home health team regarding if [...] chart and meeting with the patient, the mounter flutes and piccolos deemed the LACE+/readmission questions were appropriate. The [...] current readmission could have been prevented. The mounter flutes and piccolos will share this information with the care team. The patient reports understanding that he will dismiss from the hospital when medically stable. Thefollowing potential barriers to dismissal have been identified: Home Health Care Addendum 1230: Residential Care [facility] They received the referral but declined due to being at capacity. Plan: The patient agrees with the following plan. Patient's anticipated discharge disposition is: Home with Home Healthcare Referrals sent. Transportation upon dismissal will be provided by family--Kar . mounter flutes and piccolos recommended home health services. mounter flutes and piccolos provided information regarding the dismissal process and the Senior Linkage Line ([place] Board on [place]) handout. mounter flutes and piccolos placed or requested the following hospital-based consult orders and/or referrals: None. mounter flutes and piccolos will follow up with the patient to [...] with updates and/or transition plan to come. mounter flutes and piccolos encouraged the patient to reach out with [...] CDT Pre-op Diagnosis Hematuria Post-op Diagnosis Hematuria Intensive Care Unit Nurse A cafeteria assistant actively participated and was necessary for [...] or filling defects. 5. Placement of [address] with 20 cc in [...] The resectoscope was removed and a [address] catheter was placed with 20 [...] secondary to cystostomy closure presenting today from [facility] with concerns for worsening hematuria. He was [...] ED Course as of 08/30/232209e August 30, 2023 214 Urinary Bladder There is a large clot [...] 08/30/2023 8:48 AM CDT Pt transferred from [facility] via EMS, pt c/o blocked jon cath that started today. Pt had a right uretal stent exchange and an open bladder repair 08/15/23 and was discharged 08/25. Pt had a3 way jon placed at [facility], and transferred here because the clots returned. [...] RN, CPN, CCDS, CCS, CRC Clinical Documentation Compounder Helper Query created by: ELMER Barkre, RN, CPN, CCDS, CCS, CRC 08/31/2023 08:02 [...] CDT Procedure visit Department of Urology in [place], [place] [address] [place] [address] Paula Hernandez M.D. [address] [place] [address] Pending Results Name Type Priority Associated Diagnoses [...] CDT Roxy Romero M.D. LAB BLOOD ADD-ON [facility] [address] [place] [address], [facility] [address] [place] [address] * (ABNORMAL) Basic Metabolic Panel (09/05/2023 4:52 [...] Jakob De Paz M.D. LAB BLOOD ADD-ON [address] [address], [facility] [address] [place] [address] * (ABNORMAL) Basic Metabolic Panel (09/04/2023 8:15 [...] CDT Jeffery Valdez M.D. LAB BLOOD ADD-ON [address] [address], [address] [address] * (ABNORMAL) CBC without Differential (09/04/2023 8:15 [...] - 317 x10(9)/L 09/04/2023 9:19 PM CDT [facility] Leukocytes 7.5 3.4 - 9.6 x10(9)/L 09/04/2023 9:19 PM CDT [facility] Blood (Blood, Venous) 09/04/2023 8:15 PM CDT 09/04/2023 8:52 PM CDT Jeffery Valdez M.D. LAB BLOOD ADD-ON [facility] [address] [place] [address], [facility] [address] [place] [address] * Transfuse Red Blood Cells : (09/04/2023 3:30 PM CDT) Jeffery Valdez M.D. BLOOD TRANSFUSION OR DERABLES * Transfuse Red Blood Cells : , 1 Units (09/04/2023 3:30 PM CDT) Jeffery Valdez M.D. BLOOD TRANSFUSION OR DERABLES * Type and Screen (with Reflex Antibody ID) (09/04/2023 10:59 AM CDT) [facility] O Pos Not applicable 09/04/2023 11:46 AM CDT STRM Antibody Screen Negative Negative 09/04/2023 11:59 AM CDT STRM Type & Screen Expiration 09/07/2023 23:59 09/04/2023 11:46 AM CDT STRM Testing Location [place] DEFAULT 09/04/2023 11:21 AM CDT STR Blood (Blood, Venous) 09/04/2023 10:59 AM CDT 09/04/2023 11:21 AM CDT Jeffery Valdez M.D. LAB BLOOD BANK TEST ORDERABLES [facility] [address] [place] [address], [place] [facility] [address] [place] [address] * Heparin Anti-Xa Assay (09/04/2023 7:34 AM CDT) Pathologist [facility] Heparin Anti-Xa, P 0.12 IU/mL 2023 [...] 7:34 AM CDT 09/04/2023 7:56 AM CDT Narrative Authorizing Provider Result Abdifatah Alvarez M.D. LAB BLOOD NON A DD-ON [place] [address] [place] [address], [facility] [place] [address] * (ABNORMAL) CBC without Differential (09/04/2023 7:34 AM CDT) Pathologist [facility] Hemoglobin 7.7(L) 13.2 - 16.6 g/dL 09/04/2023 [...] M.D. LAB BLOOD ADD-ON Performing Organization Address City/[facility]/ZIP Co de Phone Number [facility] [address] [place] [address] * Heparin Anti-Xa Assay (09/04/2023 12:30 AM CDT) Pathologist [facility] Heparin Anti-Xa, P 0.27 IU/mL 2023 1:21 [...] BLOOD NON A DD-ON Performing Organization Address [facility] Co de Phone Number [facility] [address] [place] [address], [facility] [address] [place] [address] * Bacterial Culture, Aerobic + Susceptibility, Urine (09/03/2023 10:50 AM CDT) Pathologist [facility] Urine Culture No growth after 1 day of incubation. 09/04/2023 8:52 AM CDT DTL Urine (Urine, Indwelling Catheter) 09/03/2023 10:50 AM CDT 09/03/2023 11:53 AM CDT Comment:Specimen Source Site : Urine Jeffery Valdez M.D. LAB MICROBIOLOGY - G ENERAL ORDERABLES Performing Organization Address City/[facility] Co de Phone Number [facility] [address] DTL [facility] [address] [place] [address] * (ABNORMAL) CBC without Differential (09/03/2023 3:29 AM CDT) Pathologist [facility] Hemoglobin 8.0(L) 13.2 - 16.6 g/dL [...] [facility] [address] [place], [place] [phone] [place] [address] DTL [facility] [address] [place] [address] * Heparin Anti-Xa Assay (09/03/2023 3:29 AM [...] M.D. LAB BLOOD NON A DD-ON [facility] [address] [place] [address], [facility]-[address] [address] * Heparin Anti-Xa Assay (09/02/2023 2:57 AM CDT) [facility] Heparin Anti-Xa, P 0.24 IU/mL 2023 4:09 [...] BLOOD NON A DD-ON Performing Organization Address [facility] Co de Phone Number [facility] [address] [place], [place] [phone] [place] [address] DTL [facility] [address] [place] [address] * (ABNORMAL) CBC without Differential (09/01/2023 8:16 PM CDT) [facility] Hemoglobin 8.5(L) 13.2 - 16.6 g/dL 09/01/2023 [...] M.D. LAB BLOOD ADD-ON Performing Organization Address City/[facility]/ZIP Co de Phone Number [facility] [address] [place] [address], [facility] DTL [facility] [address] [place] [address] * Heparin Anti-Xa Assay (09/01/2023 6:50 PM [...] BLOOD NON A DD-ON Performing Organization Address [facility]/ZIP Co de Phone Number [facility] [address] [place] [address], [facility] DTL [facility] [address] [place] [address] * APTT (Activated Partial Thromboplastin Time) (09/01/2023 9:05 AM CDT) Pathologist [facility] Activated Partial Thrombopl Time, P 28 25 - 37 sec 09/01/2023 9:35 AM CDT [facility] Blood (Blood, Venous) 09/01/2023 9:05 AM CDT 09/01/2023 9:21 AM CDT Paula Hernandez M.D. LAB BLOOD ADD-ON Performing Organization Address City/[facility]/ZIP Co de Phone Number [facility] [address] [place] [address], [facility] STMA [facility] [address] [place] [address] * (ABNORMAL) Basic Metabolic Panel (08/31/2023 9:36 [...] CDT Paula Hernandez M.D. LAB BLOOD ADD-ON [facility] [address] [place] [address], [facility] [address] [place] [address] * (ABNORMAL) CBC without Differential (08/31/2023 9:36 [...] M.D. LAB BLOOD ADD-ON Performing Organization Address City/[facility]/ZIP Co de Phone Number [facility] [address] [place] [address], [facility] DTL [facility] [address] [place] [address] * [place] Fluoro Less Than 1 Hour [...] in the bladder lumen. Paula Hernandez M.D. [facility] CT PROCEDURES * (ABNORMAL) Hemoglobin (08/31/2023 4:21 AM CDT) Hemoglobin 7.8(L) 13.2 - 16.6 g/dL 08/31/2023 4:47 AM CDT DTL Blood (Blood, Venous) 08/31/2023 4:21 AM CDT 08/31/2023 4:35 AM CDT Kimi Vieira M.D., M.S. LAB BLOO D ADD-ON Performing Organization Address City/[facility]/ZIP Co de Phone Number [facility] [address] [place] [address], [facility] DTL [facility] [address] [place] [address] * Type and Screen (with Reflex Antibody ID) (08/30/2023 9:50 PM CDT) Pathologist [facility] ABORh O Pos Not applicable 08/30/2023 10:17 PM CDT STRM Antibody Screen Negative Negative 08/30/2023 10:31 PM CDT STRM Type & Screen Expiration 09/02/2023 23:59 08/30/2023 10:17 PM CDT STRM Testing Location [place] DEFAULT 08/30/2023 9:58 PM CDT STRM Blood (Blood, Venous) 08/30/2023 9:50 PM CDT 08/30/2023 9:58 PM CDT Shannan Correa D.O., M.H.A. LAB BLOOD BANK TEST ORDERABLES Performing Organization Address [facility] Co de Phone Number [facility] [address] [place] [address], [facility] STRM [facility] [address] [place] [address] * Lactate (08/30/2023 9:50 PM CDT) Lactate, P 1.8 0.5 - 2.2 mmol/L 08/30/2023 10:09 PM CDT [facility] Blood (Blood, Venous) 08/30/2023 9:50 PM CDT 08/30/2023 9:55 PM CDT Shannan Correa D.O., M.H.A. LAB BLOOD NON ADD-ON [facility] [address] [place] [address], [facility] [address] [place] [address] * (ABNORMAL) Basic Metabolic Panel (08/30/2023 9:49 PM CDT) Pathologist [facility] Potassium, P 3.6 3.6 - 5.2 mmol/L [...] ON [facility] [address] [place] [address], [facility] STMA [facility] [address] * (ABNORMAL) CBC with Differential, Blood (08/30/2023 9:49 PM CDT) [facility] Hemoglobin 8.5(L) 13.2 - 16.6 g/dL 08/30/2023 [...] D.O., M.H.A. LAB BLOOD ADD- ON [facility] [address] [place] [address], [place] [facility] [address] [place] [address] [facility] [address] [place] [address] * DX Chest AP or PA and [...] CDT) Ventricular Rate ECG/Min 145 BPM MUSE MA Interval 136 ms MUSE QRSD Interval 64 ms MUSE QT Interval 260 ms MUSE QTC Interval 403 ms MUSE P [place] 44 degrees MUSE R [place] 9 degrees MUSE T Wave [place] -76 degrees MUSE 08/30/2023 7:44 PM CDT [...] Sarah Morgan R.N. - Reason: See Provider Order)6743 (Unheld by provider - Provider: Jeffery Valdez M.D.) 0812 (Given - Provider: Tayler Espinoza R.N.) 0911 (Given - Provider: Vanessa Leo R.N.) clopidogreL tablet 75 mg (PLAVIX) 75 mg, oral, Daily, First dose on Tue09/05/23 at 0900 0911 (Given - Provider: Vanessa Leo, R.N.) enzalutamide capsule 120 mg (XTANDI) 120 [...] (EFFER-K) (COMPLETED) 40 mEq, oral, Once, On Tue09/04/23 at 2315, For 1 dose, For K 3-3.4 mEq/L - give total of 40 mEq Dissolve per financial aid recommendations. Do NOT chew or swallow tablet., [...] diarrhea. 0949 (Given - Provider: Sarah Morgan R.N.)2109 (Not Given - Provider: Gaye Dillard R.N. [...] line care, Starting on Tue08/30/23 at 2236, Prior to and following infusion and between [...] 2256 documented in this encounter Care Teams Tilting Head Band Sawyer Relationship Specialty Start Date End Date Elsewhere, Pcp PCP - General Internal Medicine 08/13/23 documented as of this encounter
--- OUTSIDE RECORDS SUMMARY | 2023-09-30 12:45 | XMS_ITS | Encounter Summary ---
Author Organization [facility] Address [address] [place] [address] Care Team Providers Care Balloon Design Printer Name Role Phone Elsewhere, Pcp Primary Care Provider Unavailabl e Encounter Details Date Type Department Care Team (Latest Contact Info) Description 08/30/2023 Intake [facility] Social History Tobacco Use Types Packs/Day Years Used Date Smoking Tobacco: Never Smokeless Tobacco: Never [facility] Utilities Answer Date Recorded In the [...] your living situation today? I have a [facility] place to live 08/13/2023 Sex and Gender Information Value Date Recorded Sex Assigned at Not on file Gender Identity Not on file Sexual Orientation Not on file documented as of this encounter Plan of Treatment Upcoming Encounters Date Type Department Care Team (Late st Contact Info) Description 10/14/2023 1:00 PM CDT Procedure visit Department of Urology in [place], [place] [address] [place] [address] Paula Hernandez M.D. 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
--- OUTSIDE RECORDS SUMMARY | 2023-09-30 12:45 | XMS_ITS | Encounter Summary ---
Author Organization [facility] Address [address] [place] [address] Care Team Providers Care Supervisor Jewelry Department Name Role Phone Elsewhere, Pcp Primary Care Provider Unavailabl e Encounter Details Date Type Department Care Team (Late st Contact Info) Description 09/01/2023 10:05 AM CDT Ancillary Procedure Department of Nursing Social History Tobacco Use Types Packs/Day Years Used Date Smoking Tobacco: Never Smokeless Tobacco: Never [facility] Utilities Answer Date Recorded In the past 12 months has e electric, gas, oil, or water [employer] threatened to shut off services in your [...] your living situation today? I have a [facility] place to live 08/13/2023 Sex and Gender Information Value Date Recorded Sex Assigned at Not on file Gender Identity Not on file Sexual Orientation Not on file documented as of this encounter Plan of Treatment Upcoming Encounters Date Type Department Care Team (Late st Contact Info) Description 10/14/2023 1:00 PM CDT Procedure visit Department of Urology in [place], [place] [address] [place] [address] Paula Hernandez M.D. [address] [place] [address] documented as of this encounter Procedures Procedure [...] filedocumented in this encounter Care Teams Supervisor Jewelry Department Relationship Specialty Start Date End Date Elsewhere, Pcp PCP - General Internal Medicine 08/13/23 documented as of this encounter
--- OUTSIDE RECORDS SUMMARY | 2023-09-30 12:45 | XMS_ITS | Encounter Summary ---
Author Organization [facility] Address [address] [place] [address] Care Team Providers Care Law Office Receptionist Name Role Phone Elsewhere, Pcp Primary Care [...] has e electric, gas, oil, or water [employer] threatened to shut off services in your [...] your living situation today? I have a [facility] place to live 08/13/2023 Sex and Gender Information Value Date Recorded Sex Assigned at Not on file Gender Identity Not on file Sexual Orientation Not on file documented as of this encounter Plan of Treatment Upcoming Encounters Date Type Department Care Team (Late st Contact Info) Description 10/14/2023 1:00 PM CDT Procedure visit Department of Urology in [place], [place] [address] [place] [address] Paula Hernandez M.D. [address] [place] [address] documented as of this encounter Procedures Procedure [...] on filedocumented in this encounter Care Teams Law Office Receptionist Relationship Specialty Start Date End Date Elsewhere, Pcp PCP - General Internal Medicine 08/13/23 documented as of this encounter
--- OUTSIDE RECORDS SUMMARY | 2023-09-30 12:45 | XMS_ITS | Encounter Summary ---
Author Organization [facility] Address [address] [place] [address] Care Team Providers Care Atomic Physics Professor Name Role Phone Elsewhere, Pcp Primary Care Provider Unavailabl e Reason for Visit * Reason Comments Urinary Problem Rapid Heart Rate Encounter Details Date Type Department Care Team (Latest Contact Info) Description 08/30/2023 7:35 PM CDT - 09/05/2023 4:09 PM CDT Hospital Encounter [facility], [facility], [facility], First Floor [address] [place] [address] Kirstin Hughes M.D. [address] [place] [phone] Mayur Alvarez M.D. [address] [place] [phone] Hematuria (Primary Dx); Tachycardia; Hematuria Gross Discharge [...] [facility] 09/05/2023 Sex and Gender [...] PM CDT DISCHARGE SUMMARY BRIEF OVERVIEW Hospital: [facility] Discharge Provider: Mayur Alvarez M.D. Primary Team: [facility] Urology Surgery - Chief Helga Rojas [...] CYSTOGRAM Mayur Alvarez M.D.White, Lindsay A, M.D. [facility] ROMB OR DISCHARGE DISPOSITION Home-Health Care [facility] [6] ACTIVE ISSUES REQUIRING FOLLOW UP OUTPATIENT [...] CONSULT TO CARE MANAGEMENT IP CONSULT TO MOSAIC FLOOR LAYER WOUND CARE IP CONSULT TO HYPERBARIC MEDICINE CONDITION AT DISCHARGE improved Discharge instructions were provided to the patient and caregiver(s). documented in this encounter Discharge Instructions * Patient Instructions* Carmen Louis, R.N. - 08/31/2023 9:44 AM CDT The Senior LinkAge Line?? is a service of the [place] Board on Aging in partnership with [facility] Agencies on Aging. It is a free service of the [facility] that connects older [place]ans and their families with the help they need. Call the Senior LinkAge Line?? at: [phone] M-F, 8am-4:30pm to connect with specialists that are available to assist you with your specific needsor check out their website at [email or web address] * Attachments The following attachments cannot be sent through Care Everywhere. * Cefdinir (By mouth) (Omani) documented in this encounter Medications at Time [...] questions or concerns. Pager during business hours: [phone] Pager after hours: [phone] * Jeffery Valdez M.D. - 09/04/2023 10:34 [...] questions or concerns. Pager during business hours: [phone] Pager after hours: [phone] * Jeffery Valdez M.D. - 09/03/2023 4:10 [...] consider [facility]: Diet: Regular Activity: Ad kong [...] questions or concerns. Pager during business hours: [phone] Pager after hours: [phone] * Paula Hernandez M.D. - 09/02/2023 6:25 [...] questions or concerns. Pager during business hours: [phone] Pager after hours: [phone] * Michelle Willams R.N., C.W.C.N. - 09/01/2023 11:43 AM CDT [facility] Wound RN consulted to assess Kalen [...] Secondary Dressing Status Clean;Dry;Intact Changed by Wound snow groomer Ongoing management Nursing;Wound/wired sweatband cutter Urine Assessment Urine Color Colorless Hematuria Scale [place] Urine Appearance Clear;Sediment Head to toe skin [...] update the patient. Son stated that a Body Care Manager visited the home and will be trying to assist both and patient with cares/coordination. OBJECTIVE Patient is located on [facility] room 111. Referrals were sent to the following agencies: Home Medical Care - Admitted Since 08/30/2023 Service Provider Request Status Selected Services Address Phone Fax Patient Preferred [facility] [place] Pending - Request Sent N/A [address] [facility] [phone] -- [facility] Pending - Request Sent N/A [address] [facility] [address], [facility] [id number] -- Home Health Care Pending - Request Sent N/A [address] [facility] [address] [address] -- [facility] Pending - Request Sent N/A [address] [facility] [phone] -- [facility] Pending - Request Sent N/A [address] [facility] [phone] -- [facility] Pending - Request Sent N/A [address] [facility] [address] [phone] -- [facility] Home Health Declined Facility Full N/A [address] [facility] [phone] -- ASSESSMENT / PLAN ASSESSMENT Worm Grower attempted to contact patient on room phone but was unable to get through. Case Manageras able to reach his son who will update that patient that the preferred home health agency was unable to accept and that referrals would be sent to other home health agencies. Requested services arenursing for wound care and catheter and PT/OT. PLAN Worm Grower will follow up with referrals. Case Manger [...] questions or concerns. Pager during business hours: [phone] Pager after hours: [phone] * Paula Hernandez M.D. - 08/31/2023 10:45 [...] questions or concerns. Pager during business hours: [phone] Pager after hours: [phone] Associated attestation - Mayur Alvarez M.D. - 08/31/2023 12:14 PM CDT I agree with the Urology Chief Service plan for palliative cystoscopy under anesthesia, clot evacuation, proceed as indicated. We will plan for judicious irrigation given his recent bladder surgery and we will perform a cystogram at the end of the procedure. * Demarco Salazar, PharmJonahD., R.Ph., [facility] - 08/31/2023 7:19 AM CDT Images [...] discontinuation of antibiotics. Pedrito Salazar Pharm.D., R.Ph., [facility] Admission Medication History Note Adherence issues: No [...] Complete Set By: Demarco Salazar Pharm.D., R.Ph., [facility] at 08/31/2023 7:22 AM Taking? Last [...] an 83 y.o. male transferred to the [facility] ED for further management [...] for CBI. He was then transferred to [facility] on 08/12; a CT [...] was initiated on CBI and transferred to [facility] for further management. On [...] for bladder repair, right ureteral stent exchange 5/6 Multiple prior GI procedures for radiation proctitis SOCIAL HISTORY Lives in [place], [place] OBJECTIVE Vitals Blood pressure 134/84, pulse [...] & Screen Expiration 09/02/2023 23:59 Testing Location [facility] Imagin08/30/23 EXAM: US URINARY BLADDER COMPARISON: CT [...] hematuria, clot obstruction and was transferred to [facility] for further evaluation and management. Urinary bladder ultrasound showing 5 cm clot burden; catheter draining on fast-rate CBI after multiple rounds of hand irrigation. Plan - Continue CBI - Q2h hr hand irrigations - NPO overnight pending am re-evaluation - Hold Plavix, Xarelto for now The above was discussed with Drs. Venegas and Lefty, the chief urology residents airport operations officer. Please page chief Urology [place] [phone] [place] [phone] afterhours. documented in this encounter Procedure Notes [...] on androgen deprivation therapy. 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 No scuba diving experience. Electronic health [...] prolonged inpatient stay, would request transfer to [facility] prior to initiation of [...] Early Screen for Discharge Planning Referral Name: [facility] 11 Referral Reason: Discharge Planning Primary Language: Omani Event Attendant Services Used: No Person(s) present during interview: [...] Communication: Can write, Talks, Understands speaking, Understands Omani, Reads Shopping: Needs assistance Medication Management: Independent Housekeeping: Needs assistance Meal Prep: Independent Assistive Devices: Walker - front wheeled, Eyeglasses, Hearing aid(s) Agency Name: [facility] Provided: Retirement/PT/OT Transportation: Support from family Baseline Services/Resources Primary care clinic and provider: ELSEWHERE, PCP Additional Resources: N/A Anticipated Needs Functional Status: Housekeeping, Shopping, Transportation use (drive car, use taxi/bus), Mobility, Transfer to/from bed, chair, etc., Bathing Assistive Devices: Eyeglasses, Hearing aid(s), Walker - front wheeled Services/Resources: Home health Agency Name: [facility] Provided: Retirement/PT/OT Anticipated Modifications to the Patient's Home: None Transportation Needs: Support from family Does the patient need discharge transport arranged?: No Anticipated Discharge Destination: Home-Health Care [facility] ASSESSMENT / PLAN Assessment: The drum straightener met with Kalen Vega to discuss his current hospitalization and home goingneeds. The patient was accompanied by son, Kar . The patient was a reliable historian. The role ofRN Worm Grower was reviewed. The patient reviewed his prior level of care and support system. The patient receives support from his and children. The patient described his living environment as a home with bedroom and bathroom on same floor withstairs to enter with rails. Housekeeping, grocery shopping, meal prep, and other household responsibilities have previously been completed by patient and patient's son. drum straightener discussed the patient's potential needs at dismissal based on their home setting, previous needs and responsibilities, homebound status, and relevant assessments with the patient. The patient will be safe and supported to return home with [facility] or previous services noted above when [...] [facility] care. Patient stated that [employer] was supposed to be set- up at discharge after the last hospital stay but that the company never received orders to start care and that he was told by nursing that due to his PICC removal he would not need care. Worm Grower will clarifywith home health team regarding if [...] chart and meeting with the patient, the drum straightener deemed the LACE+/readmission questions were appropriate. The [...] current readmission could have been prevented. The drum straightener will share this information with the care team. The patient reports understanding that he will dismiss from the hospital when medically stable. Thefollowing potential barriers to dismissal have been identified: Home Health Care Addendum 1230: Worm Grower called [facility]. They received the referral but declined due to being at capacity. Plan: The patient agrees with the following plan. Patient's anticipated discharge disposition is: Home with Home Healthcare Referrals sent. Transportation upon dismissal will be provided by family--Kar . drum straightener recommended home health services. drum straightener provided information regarding the dismissal process and the Senior Linkage Line ([place] Board on Aging) handout. drum straightener placed or requested the following hospital-based consult orders and/or referrals: None. drum straightener will follow up with the patient to [...] with updates and/or transition plan to come. drum straightener encouraged the patient to reach out with [...] CDT Pre-op Diagnosis Hematuria Post-op Diagnosis Hematuria Border Measurer A nutrition services assistant actively participated and was necessary [...] or filling defects. 5. Placement of [address] catheter with 20 cc in [...] The resectoscope was removed and a [address] catheter was placed with 20 [...] REVIEW OF SYSTEMS OBJECTIVE Initial Vitals Temperature 08/30/238 37.1 ??C Pulse Rate 08/30/235 (!) 145 Heart Rate 08/30/231944 (!) 144 [...] secondary to cystostomy closure presenting today from [facility] with concerns for worsening hematuria. He was [...] Pt had a3 way jon placed at [facility], and transferred here because the clots returned. [...] RN, CPN, CCDS, CCS, CRC Clinical Documentation Core Winder Query created by: ELMER Barker, RN, CPN, [...] CDT Procedure visit Department of Urology in [place], [place] [address] [place] [address] Paula Hernandez M.D. [address] [place] [address] Pending Results Name Type Priority Associated Diagnoses [...] Roxy Romero M.D. LAB BLOOD ADD-ON [facility] [address] [place] [address], [facility] DTL [facility] [address] [place] [address] * (ABNORMAL) Basic Metabolic Panel (09/05/2023 4:52 [...] Jakob De Paz M.D. LAB BLOOD ADD-ON [facility] [address] [place] [address], [facility] DTFormerly named [facility] [address] [place] [address] * (ABNORMAL) Basic Metabolic Panel (09/04/2023 8:15 [...] CDT Jeffery Valdez M.D. LAB BLOOD ADD-ON [address] [address], [facility] [address] [place] [address] * (ABNORMAL) CBC without Differential (09/04/2023 8:15 [...] - 9.6 x10(9)/L 09/04/2023 9:19 PM CDT [facility] Blood (Blood, Venous) 09/04/2023 8:15 PM CDT 09/04/2023 8:52 PM CDT Jeffery Vadlez M.D. LAB BLOOD ADD-ON [facility] [address] [place] [address], [facility] [address] [place] [address] * Transfuse Red Blood Cells : (09/04/2023 3:30 PM CDT) Jeffery Valdez M.D. BLOOD TRANSFUSION OR DERABLES * Transfuse Red Blood Cells : , 1 Units (09/04/2023 3:30 PM CDT) Jeffery Valdez M.D. BLOOD TRANSFUSION OR DERABLES * Type and Screen (with Reflex Antibody ID) (09/04/2023 10:59 AM CDT) Pathologist [facility] ABORh O Pos Not applicable 09/04/2023 11:46 AM CDT STRM Antibody Screen Negative Negative 09/04/2023 11:59 AM CDT STRM Type & Screen Expiration 09/07/2023 23:59 09/04/2023 11:46 AM CDT STRM Testing Location [facility] DEFAULT 09/04/2023 11:21 AM CDT STRM Blood (Blood, Venous) 09/04/2023 10:59 AM CDT 09/04/2023 11:21 AM CDT Jeffery Valdez M.D. LAB BLOOD BANK TEST ORDERABLES [facility] [address] [place] [address], [facility] STRM [facility] [address] [place] [address] * Heparin Anti-Xa Assay (09/04/2023 7:34 AM CDT) Heparin Anti-Xa, P 0.12 IU/mL 2023 8:14 [...] BLOOD NON A DD-ON Performing Organization Address [facility] Co de Phone Number [facility] [address] [place] [address], [facility] DTFormerly named [facility] [address] [place] [address] * (ABNORMAL) CBC without Differential (09/04/2023 7:34 [...] Performing Organization Address [facility]/ZIP Co de Phone Number [facility] [address] [place] [address], [facility] DTFormerly named [facility] [address] [place] [address] * Heparin Anti-Xa Assay (09/04/2023 12:30 AM [...] BLOOD NON A DD-ON Performing Organization Address [facility] Co de Phone Number [facility] [address] [place], [place] [id number] [place] [address] DTFormerly named [facility] [address] [place] [address] * Bacterial Culture, Aerobic + Susceptibility, Urine (09/03/2023 10:50 AM CDT) [facility] Urine Culture No growth after 1 day of incubation. 09/04/2023 8:52 AM CDT DTL Urine (Urine, Indwelling Catheter) 09/03/2023 10:50 AM CDT 09/03/2023 11:53 AM CDT Comment:Specimen Source Site : Urine Jeffery Valdez M.D. LAB MICROBIOLOGY - G ENERAL ORDERABLES [facility] [address] [place] [address], [facility] [address] [place] [address] * (ABNORMAL) CBC without Differential (09/03/2023 3:29 AM CDT) [facility] Hemoglobin 8.0(L) 13.2 - 16.6 g/dL [...] M.D. LAB BLOOD ADD-ON Performing Organization Address City/[facility]/ZIP Co de Phone Number [facility] [address] [place], [place] [phone] [place] [address] [place] [address] * Heparin Anti-Xa Assay (09/03/2023 3:29 AM [...] BLOOD NON A DD-ON Performing Organization Address City/[facility]/ZIP Co de Phone Number [facility] [address] [place] [address], [facility] [address] [place] [address] * Heparin Anti-Xa Assay (09/02/2023 2:57 AM [...] M.D. LAB BLOOD NON A DD-ON [facility] [address] [place] [address], [facility] DTFormerly named [facility] [address] [place] [address] * (ABNORMAL) CBC without Differential (09/01/2023 8:16 PM CDT) Pathologist [facility] Hemoglobin 8.5(L) 13.2 - 16.6 g/dL 09/01/2023 [...] Performing Organization Address [facility] Co de Phone Number [facility] [address] [place] [address], [facility] [address] [place] [address] * Heparin Anti-Xa Assay (09/01/2023 6:50 PM [...] BLOOD NON A DD-ON Performing Organization Address [facility] Co de Phone Number [facility] [address] [place] [address], [facility] [address] [place] [address] * APTT (Activated Partial Thromboplastin Time) (09/01/2023 9:05 AM CDT) Activated Partial Thrombopl Time, P 28 25 - 37 sec 09/01/2023 9:35 AM CDT [facility] Blood (Blood, Venous) 09/01/2023 9:05 AM CDT 09/01/2023 9:21 AM CDT Paula Hernandez M.D. LAB BLOOD ADD-ON Performing Organization Address City/[facility] Co de Phone Number [facility] [address] [place] [address], [facility] STMA [facility] [address] [place] [address] * (ABNORMAL) Basic Metabolic Panel (08/31/2023 9:36 PM CDT) Pathologist [facility] Potassium, S 4.0 3.6 - 5.2 mmol/L [...] M.D. LAB BLOOD ADD-ON [facility] [address] [place] [address], [facility] DTL [facility] [address] [place] [address] * (ABNORMAL) CBC without Differential (08/31/2023 9:36 [...] M.D. LAB BLOOD ADD-ON [facility] [address] [place] [address], [facility] [address] [address] * [place] Fluoro Less Than 1 Hour [...] * (ABNORMAL) Hemoglobin (08/31/2023 4:21 AM CDT) [facility] Hemoglobin 7.8(L) 13.2 - 16.6 g/dL 08/31/2023 4:47 AM CDT DTL Blood (Blood, Venous) 08/31/2023 4:21 AM CDT 08/31/2023 4:35 AM CDT Kimi Vieira M.D., M.S. LAB BLOO D ADD-ON [facility] [address] DTFormerly named [facility] [address] [place] [address] * Type and Screen (with Reflex Antibody ID) (08/30/2023 9:50 PM CDT) [facility] ABORh O Pos Not applicable 08/30/2023 10:17 PM CDT STRM Antibody Screen Negative Negative 08/30/2023 10:31 PM CDT STRM Type & Screen Expiration 09/02/2023 23:59 08/30/2023 10:17 PM CDT STRM Testing Location [facility] DEFAULT 08/30/2023 9:58 PM CDT STRM Blood (Blood, Venous) 08/30/2023 9:50 PM CDT 08/30/2023 9:58 PM CDT Shannan Correa D.O., M.H.A. LAB BLOOD BANK TEST ORDERABLES [facility] [address] [place] [address], [facility] STRM [facility] [address] [place] [address] * Lactate (08/30/2023 9:50 PM CDT) [facility] Lactate, P 1.8 0.5 - 2.2 mmol/L 08/30/2023 10:09 PM CDT [facility] Blood (Blood, Venous) 08/30/2023 9:50 PM CDT 08/30/2023 9:55 PM CDT Shannan Correa D.O. M.H.A. LAB BLOOD NON ADD-ON [facility] [address] [place] [address], [facility] STMA [facility] [address] [place] [address] * (ABNORMAL) Basic Metabolic Panel (08/30/2023 9:49 [...] CDT 08/30/2023 9:55 PM CDT Shannan Correa D.O. M.H.A. LAB BLOOD ADD- ON [facility] [address] [place] [address], [facility] STMA [facility] [address] [place] [address] * (ABNORMAL) CBC with Differential, Blood (08/30/2023 [...] D.O., M.H.A. LAB BLOOD ADD- ON [facility] [address] [place] [address], [facility] STMA [facility] [address] [place] [address] [facility] [address] [place] [address] * DX Chest AP or PA and [...] CDT) Ventricular Rate ECG/Min 145 BPM MUSE NM Interval 136 ms MUSE QRSD Interval 64 ms MUSE QT Interval 260 ms MUSE QTC Interval 403 ms MUSE P [place] 44 degrees MUSE R [place] 9 degrees MUSE T Wave [place] -76 degrees MUSE 08/30/2023 7:44 PM CDT [...] give total of 40 mEq Dissolve per manager quality systems recommendations. Do NOT chew or swallow tablet., [...] 0900 (Not Given - Provider: Sarah Morgan RJonahNJonah - Reason: See Provider Order)4417 (Unheld by provider - Provider: Jeffery Valdez [...] Tayler Espinoza R.N.) 0911 (Given - Provider: aVnessa Leo R.N.) mirabegron 24 hr tablet 50 [...] give total of 40 mEq Dissolve per manager quality systems recommendations. Do NOT chew or swallow tablet., Monitor the following for replacement: Potassium, Replace Potassium per: Standard Schedule 2337 (Given - Provider: eMrlyn Treadwell R.N.) rivaroxaban tablet 10 mg (XARELTO) 10 [...] intravenous, As needed, antiXa 0.1-0.19, Starting on [facility] 09/03/23 at 1608, Intensity type: Moderate, Anti-Xa < 0.1: Loading Dose (Units/kg): 60, Anti-Xa 0.1-0.19: Loading Dose (Units/kg): 30, Anti-Xa > 0.19: Loading Dose (Units/kg): 0 Or heparin (porcine) 1,000 unit/mL injection 5,500 Units (CANCELED) 5,500 Units (rounded from 5,544 Units = 60 Units/kg ? 92.4 kg), intravenous, As needed, antiXa less than 0.1, Starting on [facility] 09/03/23 at 1608, Intensity type: Moderate, [...] 2256 documented in this encounter Care Teams Atomic Physics Professor Relationship Specialty Start Date End Date Elsewhere, Pcp PCP - General Internal Medicine 08/13/23 documented as of this encounter
--- OUTSIDE RECORDS SUMMARY | 2023-09-30 12:45 | XMS_ITS | Encounter Summary ---
Author Organization [facility] Address [address] [place] [address] Care Team Providers Care Heat Treat Technician Name Role Phone Elsewhere, Pcp Primary Care Provider Unavailabl e Encounter Details Date Type Department Care Team (Late st Contact Info) Description 08/30/2023 Documentation Department of Urology in [place], [place] [address] [place] [phone] Corin Ring M.D. [address] [place] [address] Social History Tobacco Use Types Packs/Day Years Used Date Smoking Tobacco: Never Smokeless Tobacco: Never [facility] Utilities Answer Date Recorded In the past 12 months has [facility] [place], gas, oil, or water [employer] threatened to shut off services in [...] living situation today? I have a [facility] place to live 08/13/2023 Sex and Gender Information Value Date Recorded Sex Assigned at Not on file Gender Identity Not on file Sexual Orientation Not on file documented as of this encounter Plan of Treatment Upcoming Encounters Date Type Department Care Team (Late st Contact Info) Description 10/14/2023 1:00 PM CDT Procedure visit Department of Urology in [place], [place] [address] [place] [address] Paula Hernandez M.D. [address] [place] [address] documented as of this encounter Visit Diagnoses Not on filedocumented in this encounter Care Teams Heat Treat Technician Relationship Specialty Start Date End Date Elsewhere, Pcp PCP - General Internal Medicine 08/13/23 documented as of this encounter
--- OUTSIDE RECORDS SUMMARY | 2023-09-30 12:45 | XMS_ITS | Encounter Summary ---
Author Organization [facility] Address [address] [place] [address] Care Team Providers Care Carbon Coater Machine Operator Name Role Phone Elsewhere, Pcp Primary Care Provider Unavailabl e Reason for Referral * Outpatient (Routine) - Authorized Specialty Diagnoses / Procedures Referred By Contac t Referred To Contact Diagnoses Hematuria Gross Procedures DX Chest AP or PA and Lateral 2 Views Paula Hernandez M.D. [address] [place] [address] [facility] Referral ID Status Reason Start Date Expiration Date V isits Requested Visits Authorized [id number] Authorized 09/07/2023 09/06/2024 1 1 Encounter Details Date Type Department Care Team (Late st Contact Info) Description 09/06/2023 Clinical Communication [facility] [address] [place] [phone] Yasmine Loco Social History Tobacco Use Types [...] your living situation today? I have a [facility] place to live 09/09/2023 Sex and Gender Information Value Date Recorded Sex Assigned at Not on file Gender Identity Not on file Sexual Orientation Not on file documented as of this encounter Plan of Treatment Upcoming Encounters Date Type Department Care Team (Late st Contact Info) Description 10/14/2023 1:00 PM CDT Procedure visit Department of Urology in [place], [place] [address] [place] [address] Paula Hernandez M.D. [address] [place] [address] Scheduled Orders Name Type Priority Associated Diagnoses Orde r Schedule DX Chest AP or PA and Lateral 2 Views Imaging RAD - Routine (most inpatients and all outpatients) Hematuria Gross Expected: 09/08/2023, Expires: 09/05/2024 documented as of this encounter Visit Diagnoses Diagnosis Hematuria Gross- Primary documented in this encounter Care Teams Carbon Coater Machine Operator Relationship Specialty Start Date End Date Elsewhere, Pcp PCP - General Internal Medicine 08/13/23 documented as of this encounter
--- OUTSIDE RECORDS SUMMARY | 2023-09-30 12:45 | XMS_ITS | Encounter Summary ---
Author Organization [facility] Address [address] [place] [address] Care Team Providers Care Postal Carrier Name Role Phone Elsewhere, Pcp Primary Care Provider Unavailabl e Encounter Details Date Type Department Care Team (Late st Contact Info) Description 08/31/2023 12:34 PM CDT Anesthesia Event [facility] MAIN OR [address] [place] [phone] Joe Stoll M.D. [address] [place] [phone] Benjamin Williamson APRN, TASSEL SNIPPER [address] [place] [phone] Anesthesia Record Procedure Summary Procedure Name Responsible [...] Pannus; Mid 08/15/23 0900 by Janina Coronado RNarendra Wound 08/23/23; 0052; Y (P er patient); Unknown; (unsure); Pressure inj; Unstageable; Coccyx; Pre-Existing over Scar Tissue 08/23/23 0052 by Lisa Serrano, RJonahNJonah Bladder Irrigation 08/15/23; 1143; Dr. De Paz; Continuous; Three-way; 24 Fr; 30 mL (balloon filled with 10 ml water); Yes; 08/31/23; 1304 08/15/23 1143 by Janina Coronado RNarendra 08/31/23 1304 by Jacqui Mehta R.N. Wound 08/22/23; 0825; Neck ; Right; Veinotomy; 09/09/23; 1321; Wound healed 08/22/23 0825 by Kirstin Valdes RJonahNJonah 09/09/23 1321 by Jazmine Benítez R.N., C.W.C.N. Peripheral IV Placement Date: 08/30/23; Placement Time: 2048; Catheter Size: 20 G; Orientation: Right; Location: Hand; Insertion Attempts: 1; Removal Date: 09/05/23; Removal Time: 0700; Removal Reason: Patient discharged 08/30/232048 by Chelsea Argueta R.N. 09/05/23 07 by Vanessa Leo R.N. Supraglottic Airway Placement Date: 08/31/23; Placement Time: 1243 (created via procedure documentation); Mask Ventilation: Not attempted; Brand: Unique; Size: 5; Removal Date: 08/31/23; Removal Time: 1402 08/31/23 1243 by Benjamin Williamson APRN, TASSEL SNIPPER 08/31/23 1402 by Benjamin Williamson APRN, TASSEL SNIPPER Indwelling Urinary Catheter Placement Date: 08/31/23; Placement Time: 1359; Inserted by: Siddhartha Venegas MD; Size: 24 Fr.; Balloon Size: (20 ml fill saline); Removal Date: 08/31/23; Removal Time: 1403 08/31/23 1359 by Jacqui Mehta R.N. 08/31/23 1403 by Jacqui Mehta RJonahN. Bladder Irrigation 08/31/23; 1403; Siddhartha Venegas MD; Stopped (DC'd CBI); Three-way; 24 Fr; 30 mL (20 ml fill saline); Yes; 09/03/23; 1103; Per order 08/31/23 1403 by Jacqui Mehta R.N. 09/03/23 1103 by Sarah Morgan RJonahN. documented in this encounter Social History Tobacco Use Types Packs/Day Years Used Date Smoking Tobacco: Never Smokeless Tobacco: Never [facility] Utilities Answer Date Recorded In the past [address] [facility] [employer], [employer], or water [employer] threatened to shut off services in your [...] Procedure Summary Date: 08/31/23 Room / Location: [address] 01 530 / [facility] in [place], [place] Anesthesia Start: 1234 Anesthesia Stop: 1420 [...] Hematuria [R31.9] Pre-op diagnosis: Hematuria [R31.9] Location: OR [address] 01 530 / [facility] in [place], [place] Providers: Mayur Alvarez M.D. Pertinent components [...] patient / legal guardian, or through an molded rubber goods cutter; patient evaluated and approved for anesthesia / [...] CDT Procedure visit Department of Urology in [place], [place] [address] [place] [address] Paula Hernandez M.D. [address] [place] [address] documented as of this encounter Procedures Procedure [...] mg documented in this encounter Care Teams Postal Carrier Relationship Specialty Start Date End Date Elsewhere, Pcp PCP - General Internal Medicine 08/13/23 documented as of this encounter
--- OUTSIDE RECORDS SUMMARY | 2023-09-30 12:46 | XMS_ITS | Encounter Summary ---
Author Organization [facility] Address [address] [place] [address] Care Team Providers Care Php Programmer Name Role Phone Elsewhere, Pcp Primary Care Provider Unavailabl e Encounter Details Date Type Department Care Team (Late st Contact Info) Description 08/26/2023 Orders Only Department of Urology in [place], [place] [address] [place] [address] Paula Hernandez M.D. [address] [place] [address] Social History Tobacco Use Types Packs/Day Years Used Date Smoking Tobacco: Never Smokeless Tobacco: Never [facility] Utilities Answer Date Recorded In the past 12 months has [facility] [employer], gas, oil, or water [employer] threatened to shut off services in your [...] CDT Procedure visit Department of Urology in [place], [place] [address] [place] [address] Paula Hernandez M.D. [address] [place] [address] documented as of this encounter Visit Diagnoses Not on filedocumented in this encounter Care Teams Php Programmer Relationship Specialty Start Date End Date Elsewhere, Pcp PCP - General Internal Medicine 08/13/23 documented as of this encounter
--- OUTSIDE RECORDS SUMMARY | 2023-09-30 12:47 | XMS_ITS | Encounter Summary ---
Author Organization [facility] Address [address] [place] [address] Care Team Providers Care Service Engineer Name Role Phone Elsewhere, Pcp Primary Care Provider Unavailabl e Encounter Details Date Type Department Care Team (Late st Contact Info) Description 08/15/2023 8:30 AM CDT Anesthesia Event [facility] ROMB MAIN OR [address] [place] [phone] Hayde Song M.D. [address] [place] [address] Anesthesia Record Procedure Summary Procedure Name Responsible [...] R.N. 08/15/23 0909 by Rae Gonzalez APRN, WIRE SPOOLER, DNAP Peripheral IV Placement Date: 08/02; Existing [...] Janina Coronado R.N. 08/31/23 1304 by Jacqui eMhta RJonahNJonah Closed/Suction Drain 08/15/23; 1215; Med ial; LLQ; Bulb; 15 Fr.; No longer in place 08/15/23 1215 by Janina Coronado, RJonahN. 08/26/23 0000 by Lupe Valdez R.N. NG/OG Tube 08/15/23; 1234; Nasogastric; Right; 08/17/23; 1430 08/15/23 1234 by Rae Gonzalez APRN, GAVIN, DNAP 08/17/23 1430 by Jr Samuel RNarendra documented in this encounter Social History Tobacco Use Types Packs/Day Years Used Date Smoking Tobacco: Never Smokeless Tobacco: Never [facility] Utilities Answer Date Recorded In the past 12 months has e [employer], gas, oil, or water [employer] threatened to shut off services in your [...] Procedure Summary Date: 08/15/23 Room / Location: [place] [address] / [facility] in [place], [place] Anesthesia Start: 829 Anesthesia Stop: 1317 [...] euvolemic * Anesthesia Procedure Notes - Rae Gonzalez, FELT HAT POUNCING OPERATOR HAND, GAVIN, DNAP - 08/15/2023 9:51 AM CDTAssociated [...] ETT location: oral VL device: glide scope [place] scope blade size: 4 Tube size: 7.5 [...] 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 Location: [place] [address] / [facility] in [place], [place] Providers: Boubacar Brock M.D. Pertinent components [...] patient / legal guardian, or through an interpreter for the deaf; patient evaluated and approved for anesthesia / [...] CDT Procedure visit Department of Urology in [place], [place] [address] [place] [address] Paula Hernandez M.D. [address] [place] [address] documented as of this encounter Procedures Procedure Name Priority Date/Time Associated Diagnosis Comments MC ANE INVASIVE CATH WITH ULTRASOUND Routine 08/15/2023 9:51 AM CDT LDA ANE ARTERIAL LINE INSERTION Routine 08/15/2023 9:51 AM CDT [place] US GUIDE VASC ACCESS Routine 08/15/2023 9:51 AM CDT [place] ARTL CATH/CNULA MONITOR PERC Routine 08/15/2023 9:51 AM CDT LDA ANE ENDOTRACHEAL AIRWAY Routine 08/15/2023 8:40 AM CDT documented in this encounter Results * [place] ARTL CATH/CNULA MONITOR PERC, [place] US GUIDE VASC ACCESS, LDA ANE ARTERIAL [...] ETT location: oral VL device: glide scope [place] scope blade size: 4 Tube size: 7.5 [...] mg documented in this encounter Care Teams Service Engineer Relationship Specialty Start Date End Date Elsewhere, Pcp PCP - General Internal Medicine 08/13/23 documented as of this encounter
--- OUTSIDE RECORDS SUMMARY | 2023-09-30 12:47 | XMS_ITS | Encounter Summary ---
Author Organization [facility] Address [address] [place] [address] Care Team Providers Care Coin Machine Supervisor Name Role Phone Elsewhere, Pcp Primary Care Provider Unavailabl e Encounter Details Date Type Department Care Team (Late st Contact Info) Description 08/23/2023 12:45 AM CDT Ancillary Procedure Department of Nursing Social History Tobacco Use Types Packs/Day Years Used Date Smoking Tobacco: Never Smokeless Tobacco: Never [facility] Utilities Answer Date Recorded In the past 12 months has e electric, gas, oil, or water [employer] threatened to shut off services in your [...] your living situation today? I have a [facility] place to live 08/13/2023 Sex and Gender Information Value Date Recorded Sex Assigned at Not on file Gender Identity Not on file Sexual Orientation Not on file documented as of this encounter Plan of Treatment Upcoming Encounters Date Type Department Care Team (Late st Contact Info) Description 10/14/2023 1:00 PM CDT Procedure visit Department of Urology in [place], [place] [address] [place] [address] Paula Hernandez M.D. [address] [place] [address] documented as of this encounter Procedures Procedure [...] on filedocumented in this encounter Care Teams Coin Machine Supervisor Relationship Specialty Start Date End Date Elsewhere, Pcp PCP - General Internal Medicine 08/13/23 documented as of this encounter
--- OUTSIDE RECORDS SUMMARY | 2023-09-30 12:47 | XMS_ITS | Encounter Summary ---
Author Organization [facility] Address [address] [place] [address] Care Team Providers Care Textile Conversion Manager Name Role Phone Elsewhere, Pcp Primary Care Provider Unavailabl e Encounter Details Date Type Department Care Team (Latest Contact Info) Description 08/13/2023 3:42 PM CDT - 08/26/2023 4:11 PM CDT Hospital Encounter [facility], [facility], Sixth Floor [address] [place] [address] Darnell aGrcia M.D. [address] [place] [phone] Boubacar Brock M.D. [address] [place] [address] Decline Functional Status [R53.81] (Primary Dx); Hematuria [R31.9] Discharge Disposition: Home or Self Care Social History Tobacco Use Types Packs/Day Years Used Date Smoking Tobacco: Never Smokeless Tobacco: Never [facility] Utilities Answer Date Recorded In the [...] AM CDT DISCHARGE SUMMARY BRIEF OVERVIEW Hospital: [facility] Discharge Provider: Boubacar Brock M.D. Primary Team: [facility] Urology Surgery - Chief Helga - Bob Primary Care Providers: Elsewhere, Pcp (General) No [...] Scheduled Appointments 08/26/2023 1:00 PM KESHIA VERAS [facility] Radiology For appointment details refer to [...] he felt completely obstructed and presented to [place] [facility]. [place] Course Attempted Tabares insertion but bladder irrigation [...] CONSULT TO NUTRITION SUPPORT IP CONSULT TO CAREER GUIDANCE COUNSELOR WOUND CARE CONDITION AT DISCHARGE stable Discharge [...] he felt completely obstructed and presented to [place] [facility]. [place] Course Attempted Tabares insertion but bladder irrigation [...] Care Everywhere. * Bacitracin (On the skin) (Tunisian) * Cefdinir (By mouth) (Tunisian) * Trospium (By mouth) (Tunisian) documented in this encounter Medications at Time [...] the second dose and call 911 11/02/2019 cefdinir (OMNICEF) 300 mg capsule Take 1 capsule (300 mg total) by mouth 2 (two) times a day before breakfast and dinner for 2 days. Then take 1 capsule 2 times a day before breakfast and dinner for 3 days the day before, day of, day after catheter removal. 10 capsule 08/26/2023 09/05/2023 bacitracin 500 unit/gram ointment Apply 1 Application topically 4 (four) times a day as needed (catheter irritaiton). Apply to tip of penis as needed for catheter irritation. 30 g 08/26/2023 09/09/2023 documented as of this encounter Progress Notes * Emeterio Buchanan P.T., D.P.T., [facility] - 08/26/2023 4:27 PM CDT 08/26/23 0497 Reason Therapy Missed Reason Therapy Missed Receiving other care Attempted to see patient twice today. On 1st attempt patient was receiving blood transfusion and RNwas working on completing cares with him. On 2nd attempt patient was with another provider. * Chary Diamond M.A., O.T., [facility] - 08/26/2023 10:21 AM CDT Occupational Therapy [facility] Hospital Inpatient Treatment SUBJECTIVE Patient's Name: Kalen Vega Referring/Attending Provider: Boubacar Brock M.D. Reason for Referral: Occupational Therapy Evaluation and Treatment History of Present Illness: Kalen Vega is a 83 y.o. male who was admitted to [facility] in [place] on 08/13/2023 for Hematuria [R31.9]. Precautions Other Precautions: Abdominal, fall precautions, monitor tachycardia and hypertension Pain Assessment: Pain not reported during session. Subjective Comments: Agreeable to therapy session. Team Communication: The patient's status was discussed and coordination of care occurred with RN, Family/Caregiver, nurse tech Family/Caregiver Present: son and [id number] OBJECTIVE Vital Signs: Vitals not formally assessed during session. No concerns during chart review and the patient had nosigns or symptoms consistent with vital changes during therapy session. Outcome Measures: [facility] Inpatient Short Form: Putting on [...] at or below 17 Clinicians answer the [facility] Inpatient Short Form based on [...] through pant leg first. - Adaptive Equipment: Vertica Architect TOILETING - Assist Level: Maximal Assist - [...] (Edge of bed) - Assist Level: Modified Logan - Equipment: bed rail - Therapist Delivery: assessed, instructed, assisted - Adaptive Equipment: leg beam dyer recessed vat trialed ; however, patient able to move [...] extremity (stiff knee) first. Recommended adaptive equipment: Vertica Architect. Toileting - Patient instructed on accurate positioning [...] maximal exertion Handouts provided: Bathroom Safety Equipment [id number], Techniques to Help You Save Energy [id number] Patient was left in bedside chair with [...] have 01/11 supervision from family if necessary. Recommended Adaptive [...] health care OBJECTIVE Patient is admitted in [place] 6C -room 121 ASSESSMENT / PLAN SOLDERING MACHINE OPERATOR AUTOMATICbus and sys integration senior manager met with patient and son Kar to inform them of home health care acceptance for PT/OT. Patient's son Kar and [id number] will provide transportation at the time of discharge. PLAN Patient to discharge home with home health care. Home Medical Care - Admitted Since 08/13/2023 Service Provider Selected Services Address Phone Fax Patient Preferred [facility] [address] [facility] [address] -- Needleworker: Ghazal NURSING: - Complete documentation in the Discharge Navigator including Nursing Report Info and Facility/NextLevel of Care Info - Call report and arrange for the patient's first visit - Send After Visit Summary and required packet of dismissal information with patient, including advance directive. PRIMARY SERVICE: - Please provide a non-[facility] home health order for: physical therapy and [...] be provided by family--patient's son Kar and [id number]. 3. manager developmental recommended reaching out to family, friends, and neighbors for assistance. 4. manager developmental provided information regarding the dismissal process. Damaris [...] Reviewed with patient #1 Hematuria Please page [facility] ([phone]) or [facility] ([phone]) Nutrition Support Service pager with questions. * Emeterio Buchanan P.T., D.P.T., [facility] - 08/25/2023 9:35 AM CDT Physical Therapy Inpatient Treatment SUBJECTIVE Patient's Name: Kalen Vega Referring/Attending Provider: Boubacar Brock M.D. Reason for Referral: Physical Therapy Evaluate and Treat History of Present Illness: Kalen Vega is a 83 y.o. male who was admitted to [facility] in [place] on 08/13/2023 for Hematuria [R31.9] Precautions Other [...] fit with adult there which they usually [place] with a difference educated fully know who [...] - 08/25/2023 9:18 AM CDT Occupational Therapy [facility] Hospital Inpatient Treatment SUBJECTIVE Patient's Name: Kalen Vega Referring/Attending Provider: Boubacar Brock M.D. Reason for Referral: Occupational Therapy Evaluation and Treatment History of Present Illness: Kalen Vega is a 83 y.o. male who was admitted to [facility] in [place] on 08/13/2023 for Hematuria [R31.9]. Precautions Other Precautions: Abdominal, fall precautions, monitor tachycardia and hypertension Pain Assessment: Pain not reported during session. Subjective Comments: Agreeable to therapy session. Team Communication: The patient's status was discussed and coordination of care occurred with RN, PT OBJECTIVE Vital Signs: Vitals monitored throughout session; within normal ranges. Outcome Measures: [facility] Inpatient Short Form: Putting on [...] at or below 17 Clinicians answer the [facility] Inpatient Short Form based on [...] including figure four technique. Recommended adaptive equipment: Vertica Architect and Sock Aid. Toileting - Patient instructed [...] and modification tools as needed including leg beam dyer recessed vat and/or bed adjustments. Bathroom DME: - Educated [...] AM CDT UROLOGY CHIEF SERVICE PROGRESS NOTE PERI Vega was seen by the team during [...] in place draining clear yellow urine I/O ([id number]): Fifty-five cc serosanguineous from the drain 1 [...] locallyfor CBI. He was subsequently transferred to [facility] 08/12 for difficulty irrigating his catheter [...] 2.5 mg BID eliquis initiated 08/15 per [facility] med curbside recs --transition from eliquis [...] have him follow up with his local call center supervisor Comorbidities: --history of DVT status post IVC [...] discussed with Dr. Venegas, chief urology resident apple solutions consultant. Pager during business hours: [phone] Pager after hours: [phone] * Emeterio Buchanan P.T., D.P.T., [facility] - 08/24/2023 10:46 AM CDT Physical Therapy Inpatient Treatment SUBJECTIVE Patient's Name: Kalen Vega Referring/Attending Provider: Boubacar Brock M.D. Reason for Referral: Physical Therapy Evaluate and Treat History of Present Illness: Kalen Vega is a 83 y.o. male who was admitted to [facility] in [place] on 08/13/2023 for Hematuria [R31.9] Precautions Other [...] at or below 17 Clinicians answer the -[facility] Inpatient Short Form based on observed patient [...] baseline. PT Goal #2: Patient will perform die-jc-vrgxv transfer with modified independence and least restrictive [...] Total Kcal/day: 1370 based on 84 % Garcia-Tecumseh Non-standard additives: K 80 mEq Phos 30 mmol MAX chloride Thiamine 100 mg daily (D4) ASSESSMENT / PLAN CPN renewed per NSS recommendations; K increased to 80 mEq, phos increased to 30 mmol/day. BMP, mag, phos with AM labs 08/24 ordered Ceftriaxone 2 gm Q 24hr started 08/14--> cefdinir 300 mg PO BID on 08/21 for UTI. Needs LOT determined. Tayler Mkceon PharmJonahDJonah, R.Ph. * Jennifer Millard M.D. - 08/24/2023 [...] magnesium, phosphorus tomorrow. #1 Hematuria Please page [facility] ([phone]) or [facility] ([phone]) Nutrition Support Service pager with questions. * [...] catheter in place draining light smith I/O ([id number]): Forty-two cc serosanguineous from the drain 2.2 [...] locallyfor CBI. He was subsequently transferred to [facility] 08/12 for difficulty irrigating his catheter [...] 2.5 mg BID eliquis initiated 08/15 per [facility] med curbside recs --transition from eliquis [...] have him follow up with his local call center supervisor Comorbidities: --history of DVT status post IVC [...] discussed with Dr. Venegas, chief urology resident apple solutions consultant. Pager during business hours: [phone] Pager after hours: [phone] * Deanne Mike L.G.S.W., M.S.W. - 08/23/2023 11:25 AM CDT SUBJECTIVE Social Work spoke with [facility]. They cannot provide intermediate at this time. They can provide OT/PT [...] discharge date of 08/24/23-08/26/23. Referrals sent: [facility] [place] [facility] (out of service area) [facility] ASSESSMENT / PLAN ASSESSMENT Patient has robust family support including a son living with him. PLAN Patient desires home health care through [facility]. Social Work will continue to follow to provide support. Social Work will continue to assist with discharge needs. Shorty Sun, M.S.W. 08/23/23 * Jazmine Benítez R.N., C.W.C.N. - 08/23/2023 11:10 AM CDT [facility] Wound RN consulted to assess Kalen [...] stent and hematuria who is transferred from [place] ED with 3 days of hematuria and [...] None Unable to Measure Y *Wound Bed Closed;[place];Red Tissue Exposed None Odor None *Exudate Amount [...] 30 minutes > 30 minutes Ongoing management Nursing;Wound/appeals reviewer veteran Partial head to toe skin assessment completed [...] concerns. Electronically signed by: Jazmine Benítez R.N., Mark.MelindaCJonahNJonah 08/23/23 11:10 AM CDT * Emeterio Buchanan, P.T., D.P.T., [facility] - 08/23/2023 11:02 AM CDT Physical Therapy Inpatient Treatment SUBJECTIVE Patient's Name: Kalen Vega Referring/Attending Provider: Boubacar Brock M.D. Reason for Referral: Physical Therapy Evaluate and Treat History of Present Illness: Kalen Vega is a 83 y.o. male who was admitted to [facility] in [place] on 08/13/2023 for Hematuria [R31.9] Precautions Other [...] and O2 flow: Room air Outcome Measures: [facility] Inpatient Short Form: -[facility] Basic Mobility (V.2) How much help from [...] 3-5 steps with a railing?: A Lot -[facility] Basic Mobility (V.2) Raw Score: 17 -[facility] Basic Mobility (V.2) Standardized Score: 39.67 Interpretation: Based on scoring guidelines using the raw score value: Those going to home had an average score at or above 18 Those going to facility had an average score at or below 17 Clinicians answer the -[facility] Inpatient Short Form based on observed patient [...] baseline. PT Goal #2: Patient will perform iau-en-cppmx transfer with modified independence and least restrictive [...] Buchanan P.T., D.P.T., GCS * Demarco Salazar, PharmJonahD., R.Ph., [facility] - 08/23/2023 10:19 AM CDT Pharmacist Progress [...] Total Kcal/day: 1370 based on 84 % Garcia-Tecumseh Non-standard additives: MAX chloride Thiamine 100 mg [...] magnesium, phosphorus tomorrow. #1 Hematuria Please page [facility] ([phone]) or [facility] ([phone]) Nutrition Support Service pager with questions. * Ivy Hernandez O.T. - 08/23/2023 8:30 AM CDT Occupational Therapy [facility] Hospital Inpatient Treatment SUBJECTIVE Patient's Name: Kalen Vega Referring/Attending Provider: Boubacar Brock M.D. Reason for Referral: Occupational Therapy Evaluation and Treatment History of Present Illness: Kalen Vega is a 83 y.o. male who was admitted to [facility] in [place] on 08/13/2023 for Hematuria [R31.9]. Precautions Other Precautions: Abdominal, fall precautions, monitor tachycardia and hypertension Pain Assessment: Pain not reported during session. Subjective Comments: Agreeable to therapy session. Team Communication: The patient's status was discussed and coordination of care occurred with RN, PT OBJECTIVE Vital Signs: Vitals monitored throughout session; within normal ranges. Outcome Measures: [facility] Inpatient Short Form: Putting on [...] at or below 17 Clinicians answer the [facility] Inpatient Short Form based on [...] Non-tender, non-distended. midline lower abd incision with rayshanw in place, well approximated. Pelvic drain with serosanguinous output. : Tabares catheter in place draining clear yellow I/O ([id number]): 73 cc serosanguineous from the drain Seven [...] locallyfor CBI. 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 [facility] Summary: Diet: NPO, TPN Activity: [...] discussed with Dr. Venegas, chief urology resident apple solutions consultant. Pager during business hours: [phone] Pager after hours: [phone] * Chary Diamond M.A., O.T., BCP - [...] [facility]. Social Work sent referral. OBJECTIVE Patient is anticipated to remain at [facility] for 3-5 days. Referrals sent: [facility] - [facility] ASSESSMENT / PLAN ASSESSMENT Patient has robust family support including a son living with him. PLAN Patient desires home health care through [facility]. Social Work will continue to follow to provide support. Social Work will continue to assist with discharge needs. hSorty Sun, M.S.W. 08/22/23 * Emeterio Buchanan P.T., D.P.T., [facility] - 08/22/2023 2:27 PM CDT Physical Therapy Inpatient Treatment SUBJECTIVE Patient's Name: Kalen Vega Referring/Attending Provider: Boubacar Brock M.D. Reason for Referral: Physical Therapy Evaluate and Treat History of Present Illness: Kalen Vega is a 83 y.o. male who was admitted to [facility] in [place] on 08/13/2023 for Hematuria [R31.9] Precautions Other [...] 3-5 steps with a railing?: A Lot [facility] Basic Mobility (V.2) Raw Score: 17 [facility] Basic Mobility (V.2) Standardized Score: 39.67 Interpretation: Based on scoring guidelines using the raw score value: Those going to home had an average score at or above 18 Those going to facility had an average score at or below 17 Clinicians answer the [facility] Inpatient Short Form based on [...] baseline. PT Goal #2: Patient will perform rmp-hn-jazcp transfer with modified independence and least restrictive [...] * Demarco Salazar Pharm.DJonah, R.Ph., [facility] - 08/22/2023 10:57 AM CDT [...] Total Kcal/day: 1370 based on 84 % Garcia-Tecumseh Non-standard additives: MAX chloride Thiamine 100 mg [...] UROLOGY CHIEF SERVICE PROGRESS NOTE SUBJECTIVE Kalen Galeasheber was seen by the team during [...] place draining light smith colored urine I/O ([id number]): CBI on slow drip 75 cc serosanguineous [...] locallyfor CBI. He was subsequently transferred to [facility] 08/12 for difficulty irrigating his catheter [...] 2.5 mg BID eliquis initiated 08/15 per [facility] med curbside recs --transition from eliquis [...] have him follow up with his local call center supervisor Comorbidities: --history of DVT status post IVC [...] tamsulosin, rosuvastatin Held Home Meds: None Consults: KESHIA STEVE M.D. 08/22/2023 Please page the Urology Chief Service with questions or concerns. Patient seen and discussed with Dr. Venegas, chief urology resident apple solutions consultant. Pager during business hours: [phone] Pager after hours: [phone] * Qamar Jim, Pharm.DJonah, R.Ph. - 08/21/2023 10:43 AM CDT Images [...] place draining clear smith colored urine I/O ([id number]): 1800 cc urine output 75 cc serosanguineous [...] locallyfor CBI. He was subsequently transferred to [facility] 08/12 for difficulty irrigating his catheter [...] have him follow up with his local call center supervisor Comorbidities: --history of DVT status post IVC [...] discussed with Dr. Venegas, chief urology resident apple solutions consultant. Pager during business hours: [phone] Pager after hours: [phone] * Lizette Harvey M.D. - 08/20/2023 8:08 [...] draining clear thin merlot colored urine I/O ([id number]): 240 cc p.o. intake 760 cc urine [...] locallyfor CBI. He was subsequently transferred to [facility] 08/12 for difficulty irrigating his catheter [...] 2.5 mg BID eliquis initiated 08/15 per [facility] med curbside recs --transition from eliquis [...] have him follow up with his local call center supervisor Comorbidities: --history of DVT status post IVC [...] tamsulosin, rosuvastatin Held Home Meds: None Consults: BHAVINN Lizette Harvey M.D. 08/20/2023 Please page the Urology Chief Service with questions or concerns. Pager during business hours: [phone] Pager after hours: [phone] * Qamar Jim, PharmJonahDJonah, R.Ph. - 08/20/2023 [...] by aPTT guidance document in [employer]. Qamar Jim, Phuc., R.Ph. * Lisa Seaman, O.T., [facility] - 08/19/2023 2:26 PM CDT Occupational Therapy Acute Hospital Inpatient Treatment SUBJECTIVE Patient's Name: Kalen Vega Referring/Attending Provider: Boubacar Brock M.D. Reason for Referral: Occupational Therapy Evaluation and Treatment History of Present Illness: Kalen Vega is a 83 y.o. male who was admitted to [facility] in [place] on 08/13/2023 for Hematuria [R31.9]. Precautions Other Precautions: Abdominal, fall precautions, monitor tachycardia and hypertension Pain Assessment: Pain not reported during session. Subjective Comments: Patient greeted in chair and agreeable to therapy session. Team Communication: The patient's status was discussed and coordination of care occurred with RN OBJECTIVE Vital Signs: Vitals monitored throughout session; within normal ranges. Outcome Measures: [facility] Inpatient Short Form: Putting on [...] at or below 17 Clinicians answer the [facility] Inpatient Short Form based on [...] about patient's nutritional care please contact pager [phone] on weekdays or [phone] on weekends/holidays. NUTRITION ASSESSMENT: Mr. Vega is [...] care everywhere) ESTIMATED NEEDS: Total Calorie Needs: 1360-8601 calories/day Method to Estimate Energy Needs: kcal/kg [...] was admitted to [facility] in [place] on 08/13/2023 for Hematuria [R31.9] Precautions Other [...] mmHg O2: 96% Room air Outcome Measures: [facility] Inpatient Short Form: -[facility] Basic Mobility (V.2) How much help from [...] 3-5 steps with a railing?: A Little -[facility] Basic Mobility (V.2) Raw Score: 18 -[facility] Basic Mobility (V.2) Standardized Score: 41.05 Interpretation: Based on scoring guidelines using the raw score value: Those going to home had an average score at or above 18 Those going to facility had an average score at or below 17 Clinicians answer the -[facility] Inpatient Short Form based on observed patient [...] Ongoing PT Goal #2: Patient will perform idx-nn-zrysf transfer with modified independence and least restrictive [...] aPTT guidance document in [employer]. Marie Cassidy, PharmDayday, R.Ph. Addendum at 14:08: aPTT Results (Past Day) 08/19/2023 08/19/2023 08/18/2023 08/18/2023 10:57 AM 4:51 AM 10:03 PM 2:50 PM aPTT 54 [phone] The repeat aPTT at 10:57 was 54 which is within therapeutic goal. Continue current rate of 11 unit/kg/h. Will recheck aPTT tomorrow morning. Trevor Bautista.Ph., Pharm.D. * Paula Hernandez M.D. - 08/19/2023 [...] in place draining clear pink urine I/O ([id number]): 370 p.o. intake 1 L urine output [...] Plavix and Xarelto last doses of each 5/ On 08/11 developed worsening hematuria ultimately went into clot retention and was admitted locallyfor CBI. He was subsequently transferred to [facility] 08/12 for difficulty irrigating his catheter [...] 2.5 mg BID eliquis initiated 08/15 per [facility] med curbside recs --transition from eliquis [...] have him follow up with his local call center supervisor Comorbidities: --history of DVT status post IVC [...] questions or concerns. Pager during business hours: [phone] Pager after hours: [phone] * Lisa Seaman, O.T., [facility] - 08/18/2023 11:15 AM CDT Occupational Therapy [facility] Inpatient Treatment SUBJECTIVE Patient's Name: Kalen Vega Referring/Attending Provider: Boubacar Brock M.D. Reason for Referral: Occupational Therapy Evaluation and Treatment History of Present Illness: Kalen Vega is a 83 y.o. male who was admitted to [facility] in [place] on 08/13/2023 for Hematuria [R31.9]. Precautions Other [...] pressure: 168/97 - nurse notified Outcome Measures: AM-PAC Inpatient Short Form: Putting [...] doffing over it last. Recommended adaptive equipment: Vertica Architect and Sock Aid. Patient was left in bedside chair, with nursing/GENERAL PRODUCTION MANAGER at end of session with call light [...] was admitted to [facility] in [place] on 08/13/2023 for Hematuria [R31.9] Precautions Other [...] 3-5 steps with a railing?: A Little [facility] Basic Mobility (V.2) Raw Score: 18 [facility] Basic Mobility (V.2) Standardized Score: 41.05 Interpretation: Based on scoring guidelines using the raw score value: Those going to home had an average score at or above 18 Those going to facility had an average score at or below 17 Clinicians answer the [facility] Inpatient Short Form based on [...] following coordination of care occurred with the soap maker/Caregiver Present: No Patient was left in bedside [...] Progressing PT Goal #2: Patient will perform ubh-ki-qgpou transfer with modified independence and least restrictive [...] Scott Pina P.T., D.P.T. * Aziza Cortez PharmDayday, R.Ph. - 08/18/2023 7:59 AM CDT Pharmacist [...] in place draining clear pink urine I/O ([id number]): 1.2 L p.o. intake 1 L urine [...] locallyfor CBI. He was subsequently transferred to [facility] 08/12 for difficulty irrigating his catheter [...] diet later today follow up vascular medicine [facility] Summary: Diet: currently limited clears Activity: Ad kong DVT PPX: heparin drip GI PPX: Pantoprazole Bowel Regimen:N/A IVF: none Abx/Microbiology: Ceftriaxone Pain Control: Tylenol, oxycodone 08/18. Scheduled trospium Home Meds Resumed: Metoprolol, tamsulosin, rosuvastatin Held Home Meds: None Consults: None Paula Hernandez M.D. 08/18/2023 6:02 AM CDT Please page the Urology Chief Service with questions or concerns. Pager during business hours: [phone] Pager after hours: [phone] * Tayler Greenwood M.D., M.Ed. - 08/17/2023 [...] the patient follow up with his primary call center supervisor at discharge we will which we will make sure he does. we appreciate their time in reviewing this case. * Chance Cassidy PharmDayday, R.Ph. - 08/17/2023 11:37 AM CDT Images [...] Ringer's Lactated Ringer's * Lisa Seaman, O.T., [facility] - 08/17/2023 10:47 AM CDT Occupational Therapy [facility] Inpatient Treatment SUBJECTIVE Patient's Name: Kalen Vega Referring/Attending Provider: Boubacar Brock M.D. Reason for Referral: Occupational Therapy Evaluation and Treatment History of Present Illness: Kalen Vega is a 83 y.o. male who was admitted to [facility] in [place] on 08/13/2023 for Hematuria [R31.9]. Precautions Other [...] at or below 17 Clinicians answer the [facility] Inpatient Short Form based on [...] in place draining clear pink urine I/O ([id number]): NG tube 200 cc Two hundred sixty-five [...] locallyfor CBI. He was subsequently transferred to [facility] 08/12 for difficulty irrigating his catheter [...] questions or concerns. Pager during business hours: [phone] Pager after hours: [phone] * Audi De Luna P.T., D.P.T. - [...] in place draining clear pink urine I/O ([id number]): NG tube 200 cc Two hundred sixty-five [...] locallyfor CBI. He was subsequently transferred to [facility] 08/12 for difficulty irrigating his catheter [...] will discuss with Cardiology need for both [facility] Summary: Diet: NPO Activity: Ad kong DVT PPX: Ashley heparin GI PPX: Pantoprazole Bowel Regimen:N/A IVF: LR 75 Abx/Microbiology: Ceftriaxone Pain Control: Tylenol, oxycodone 08/18. Scheduled trospium Home Meds Resumed: Metoprolol, tamsulosin, rosuvastatin Held Home Meds: None Consults: None Signed by: Paula Hernandez M.D. 08/16/2023 6:02 AM CDT Please page the Urology Chief Service with questions or concerns. Pager during business hours: [phone] Pager after hours: [phone] * Paula Hernandez M.D. - 08/15/2023 9:09 AM CDT PROGRESS NOTE: No events. AFVSS. Pain controlled. No flatus. No further emesis overnight. Abdomen more distended than yesterday but remained soft, tender to deep palpation only, no rebound. Twenty-four English Alcock three-way catheter remains off CBI, draining [...] for CBI. He was subsequently transferred to [facility] 08/12 for difficulty irrigating his catheter [...] risks associated with surgery and anesthesia including AR, stroke, and VTE were also discussed. Finally, [...] above was discussed with Dr. Brock, urology medical cost consultant on-call who is in agreement with [...] Family to bring his home enzalutamide from [place] Irvin Franco Pharm.D., R.Ph. * Jakob De Paz M.D. - 08/14/2023 11:34 AM CDT PROGRESS NOTE: No events. AFVSS. Pain controlled. No flatus. Nauseous and had 2 episodes of emesis. Abdomen more distended than yesterday but remained soft, tender to deep palpation only, no rebound. Twenty-four English Alcock three-way catheter remains off CBI, draining [...] for CBI. He was subsequently transferred to [facility] 08/12 for difficulty irrigating his catheter [...] above was discussed with Dr. Brock, urology medical cost consultant on-call who is in agreement with [...] Patient discussed with Dr. Sylvester. Page CCM3 [id number] Carlos Alberto Henson M.D. PGY-1 CCM 3 [...] who have asked we place a 24 English 3-way urinary catheter pending evaluation. We will [...] stent and hematuria who is transferred from [facility] ED with 3 days of hematuria [...] which has been billed separately. * Carlos Alebrto Henson M.D. - 08/13/2023 2:00 PM CDT [...] him to present to local hospital in [place]. OSH Course: His hemoglobin was in the [...] Insecurity: No Food Insecurity (02/16/2022) Received from [facility], [email or web address] Food Insecurity Worried About Running Out of Food in the Last Year: 1 Transportation Needs: No Transportation Needs (02/16/2022) Received from [facility], [employer] [facility] Transportation Needs Lack of Transportation (Medical): 1 Housing Stability: Low Risk (02/16/2022) Received from [facility], [employer] [facility] Housing Stability Unable to Pay [...] Dr. Sylvester and Dr. Rodriguez. Page CCM3 [id number] Carlos Alberto Henson M.D. PGY-1 CCM 3 [...] As expected PRIMARY PROCEDURALIST FAY Cerna MD [phone] ASSISTANTS none COMPLICATIONS None. DRAINS None. IMPLANTS [...] peripheral vein targets. Ultrasound used for assessment: Websense Fit Provider contacted (include name): Uro Surg [...] 14 -- AST U/L 25 -- Radiology: @[id number]@ Swallow Assessment: No data to display ASSESSMENT / PLAN #1 Hematuria ASSESSMENT Currently we are asked to visit with Mr. Vega for consideration of parenteral nutrition. Nutrition Needs: Height: 180 cm Admission Weight: 91.2 kg (08/13/2023) Current Weight: 90.2 kg BMI (Calculated): 27.8 kg/m?? Total Calorie Needs: 8077-6947 calories/day Method to Estimate Energy Needs: Garcia-T[place]um[place]h ( ) Weight Used for Equation Calculations: [...] on electrolytes Please call NSS pager at [phone] at [facility] or [phone] at [facility] with any additional questions. * Gilbert Johnson [...] STENT EXCHANGE; Surgeon: Boubacar Brock M.D.; Location: [facility] OR FAMILY HISTORY No family [...] values in this interval not displayed. Radiology: @[id number]@ Swallow Assessment: No data to display ASSESSMENT / PLAN #1 Hematuria ASSESSMENT Currently we are asked to visit with Mr. Vega for consideration of parenteral nutrition. Nutrition Needs: Height: 180 cm Admission Weight: 91.2 kg (08/13/2023) Current Weight: 90.2 kg BMI (Calculated): 27.8 kg/m?? Total Calorie Needs: 6918-5739 calories/day Method to Estimate Energy Needs: kcal/kg [...] on electrolytes Please call NSS pager at [phone] at [facility] or [phone] at [facility] with any additional questions. BILLING/CODING Total visit [...] stent along with other stents and apparently call center supervisor in the past I recommended indefinite dual [...] Corin Ring M.D., 120 mg at 08/18/23 08 heparin (porcine) 100 Units/mL in NaCl 0.45% 250 mL infusion, 13 Units/kg/hr (Dosing Weight), intravenous, Continuous, Aziza Cortez Pharm.D., R.Ph., Last Rate: 11.9 mL/hr at 08/18/23 08, 13Units/kg/hr at 08/18/23 08 Lactated Ringer's, 20 mL/hr, intravenous, Continuous, Frieda Garner APRN, FLANGING ROLL OPERATOR, Last Rate: 20 mL/hr at 08/15/23 [...] but he can discuss this with his call center supervisor at home. We need to balance transfusion needs for continued bleedingand risk of recurrent AR if not on Plavix-coronary stents were 6 [...] was admitted to [facility] in [place] on 08/13/2023 for Hematuria [R31.9]. Relevant Medical History: Kalen Vega is a 83 y.o. 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 Outcome Measures: -[facility] Inpatient Short Form: -[facility] Basic Mobility (V.2) How much help from [...] 3-5 steps with a railing?: A Lot -[facility] Basic Mobility (V.2) Raw Score: 17 -[facility] Basic Mobility (V.2) Standardized Score: 39.67 Interpretation: Based on scoring guidelines using the raw score value: Those going to home had an average score at or above 18 Those going to facility had an average score at or below 17 Clinicians answer the -[facility] Inpatient Short Form based on observed patient [...] following coordination of care occurred with the soap maker/Caregiver Present: SonFavio Patient was left in bedside [...] was admitted to [facility] in [place] on 08/13/2023 for Hematuria with cystotomy and [...] Min assist for mobility. Required assist for [id number] for force generation and is generally standby [...] Ongoing PT Goal #2: Patient will perform mic-om-berpf transfer with modified independence and least restrictive [...] home. PT Goal #4 Status: Ongoing Kalen Srinivasan Gary has Good rehab potential to meet the [...] Celestin Associated attestation - Fidencio Caban P.T., D.PCarlos - 08/17/2023 5:45 PM CDT This therapist [...] was admitted to [facility] in [place] on 08/13/2023 for Hematuria [R31.9]. Relevant Medical [...] with RN, PT Family/Caregiver Present: Son and [id number]-[id number]. Home Living and Equipment: Lives with: Spouse/Significant [...] walker, Single point cane Adaptive Equipment Owned: Vertica Architect, Long Handled Shoe Horn Other DME Owned: Regular flat bed Prior Level of Function and Mobility: Basic Activities of Daily Living: Independent Instrumental Activities of Daily Living: Required Assistance: Laundry son assists with laundry and cooking Functional Mobility: Independent Driving: Yes Occupational Role: Retired Leisure Interests: watch movies, plays [employer] train, meets friends for breakfast. Patient/Caregiver Goals: [...] at or below 17 Clinicians answer the [facility] Inpatient Short Form based on [...] all are a great support. 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 Patient expressed understanding and was agreeable [...] in conversation with his family when social services counselor entered the room. He was engaged [...] locally at approximately 3:00 a.m. a 22 English three-way catheter was placed and CBI wasinitiated. [...] non-distended, non-peritonitic Extremities: No edema : 22 English three-way Tabares catheter draining a minimal amount [...] urinary retention Given his non draining 22 English three-way catheter the Urology techs and I subsequently exchanged this for a 24 English three-way Alcock in the usual sterile fashion. [...] to follow [place] [phone] with questions or concerns Sixto Cain M.D. [...] edema, extravasation Extremities assessed (right/left, upper/lower arm): VINCENZO/DEEPAK Vein score: 5 Grade 1/Excellent: Palpable & [...] peripheral vein targets. Ultrasound used for assessment: Websense Fit Provider contacted (include name): Uro Surg [...] PICC or other central line. * Jose Haro, M.S.NJonah, R.N. - 08/14/2023 12:23 PM CDT Patient Transfer Note Patient transferred to: [facility] Room: [facility] Accompanied by: JAMEL Garcia Report [...] current vital signs? YES * Sixto Teague R.R.TJonah, L.R.T., [facility] - 08/14/2023 7:00 AM CDT Patient is [...] the last 24hours. Sixto Teague R.R.T., L.R.TJonah, [facility] CALL[facility] 08/14/23 7:00 AM CDT Electronically signed by Sixto Teague R.R.Cooper, L.R.T., [facility] at 08/14/2023 7:02 AM CDT * Radha [...] Hematuria Electronically signed by: Radha Crespo R.R.T., L.RMarlon. 08/13/23 7:10 PM CDT documented in this encounter OR Notes * Op Note - Jakob De Paz M.D. - 08/15/2023 9:37 AM CDT Pre-op Diagnosis Rupture Bladder Spontaneous Post-op Diagnosis Rupture Bladder Spontaneous Cotton Program Technician A assistant center director actively participated and was necessary for one [...] the supine flexed position. His existing 24 English three-way Tabares catheter was noted to be [...] additional tissue for additional coverage. A 24 English three-way catheter was placed with 15 cc in the balloon. This irrigated to light clear pink. A 15 English YARELI drain wasplaced into the pelvis exiting left lower quadrant. The fascia was closed with interrupted and [id number]-[id number] 0 PDS. Fat was approximated using 3-0 [...] x 2 (5-4) -LR @ 75 cc/hr (-7 - -) Please contact me if you have questions. Thank you, ELMER Barker, RN, CPN, CCDS, CCS, CRC Clinical Documentation Integrated Circuit Design Engineer Query created by: ELMER Barker, RN, CPN, [...] stent and hematuria who is transferred from [place] ED with 3 days of hematuria & [...] RN, CPN, CCDS, CCS, CRC Clinical Documentation Integrated Circuit Design Engineer Query created by: ELMER Barker, RN, CPN, [...] he felt completely obstructed and presented to [place] ED. [place] Course Attempted Tabares insertion but bladder irrigation [...] CDT Procedure visit Department of Urology in [place], [place] [address] [place] [address] Paula Hernandez M.D. [address] [place] [address] Pending Results Name Type Priority Associated Diagnoses [...] 08/26/2023 7:16 AM CDT STRM Testing Location [place] DEFAULT 08/26/2023 6:57 AM CDT STRM Blood (Blood, Venous) 08/26/2023 6:50 AM CDT 08/26/2023 6:57 AM CDT Paula Hernandez M.D. LAB BLOOD BANK TEST ORDERABLES Performing Organization Address [facility] Co de Phone Number [facility] [address] [place] [address], [facility] STRM [facility] [address] [place] [address] * (ABNORMAL) CBC without Differential (08/26/2023 3:20 [...] CDT Corin Ring M.D. LAB BLOOD ADD-ON [facility] [address] [place] [address], [facility] DTL [facility] [address] [place] [address] * Magnesium (08/26/2023 3:20 AM CDT) Magnesium, S 2.1 1.7 - 2.3 mg/dL 08/26/2023 4:04 AM CDT DTL Blood (Blood, Venous) 08/26/2023 3:20 AM CDT 08/26/2023 3:50 AM CDT Boubacar Brock M.D. LAB BLOOD ADD-ON [facility] [address] [place] [address], [facility] DTL [facility] [address] [place] [address] * (ABNORMAL) Renal Function Panel (08/26/2023 3:20 AM CDT) Pathologist [facility] Potassium, S 4.4 3.6 [...] M.D. LAB BLOOD ADD-ON Performing Organization Address City/[facility]/ZIP Co de Phone Number [facility] [address] [place] [address], [facility] [address] [place] [address] * Heparin Anti-Xa Assay (08/26/2023 3:20 AM CDT) Pathologist [facility] Heparin Anti-Xa, P 0.26 IU/mL 2023 3:58 [...] Hoyt M.D. LAB BLOOD NON ADD -ON [facility] [address] [place] [address], [facility] [address] [place] [address] * (ABNORMAL) CBC without Differential (08/25/2023 3:24 [...] M.D. LAB BLOOD ADD-ON Performing Organization Address City/State/[facility] Co de Phone Number [facility] [place] [address], [facility] [address] [place] [address] * (ABNORMAL) Renal Function Panel (08/25/2023 3:24 AM CDT) Pathologist [facility] Potassium, S 4.1 3.6 - 5.2 mmol/L [...] M.D. LAB BLOOD ADD-ON Performing Organization Address City/[facility]/ZIP Co de Phone Number [facility] [address] [facility] [address] [place] [address] * Magnesium (08/25/2023 3:24 AM CDT) Pathologist [facility] Magnesium, S 2.2 1.7 - 2.3 mg/dL 08/25/2023 4:36 AM CDT DTL Blood (Blood, Venous) 08/25/2023 3:24 AM CDT 08/25/2023 4:19 AM CDT Boubacar Brock M.D. LAB BLOOD ADD-ON Performing Organization Address City/[facility]/ZIP Co de Phone Number [facility] [address] [facility] [address] [place] [address] * Heparin Anti-Xa Assay (08/25/2023 3:24 AM [...] Boubacar Brock M.D. LAB BLOOD NON ADD-ON [id number] [place] [address] [place] [address] * (ABNORMAL) CBC without Differential (08/24/2023 5:28 AM CDT) [facility] Hemoglobin 8.1(L) 13.2 - 16.6 g/dL [...] M.D. LAB BLOOD ADD-ON Performing Organization Address City/[facility]/ZIP Co de Phone Number [facility] [address] [place] [address], [facility] [address] [place] [address] * Magnesium (08/24/2023 5:28 AM CDT) Magnesium, S 2.3 1.7 - 2.3 mg/dL 08/24/2023 6:19 AM CDT DTL Blood (Blood, Venous) 08/24/2023 5:28 AM CDT 08/24/2023 6:00 AM CDT Boubacar Brock M.D. LAB BLOOD ADD-ON Performing Organization Address [facility] Co de Phone Number [facility] [address] [place] [address], [facility] [address] [place] [address] * (ABNORMAL) Renal Function Panel (08/24/2023 5:28 [...] CDT Boubacar Brock M.D. LAB BLOOD ADD-ON [facility] [address] [place] [address], [facility] [address] [place] [address] * Heparin Anti-Xa Assay (08/24/2023 5:28 AM CDT) Pathologist [facility] Heparin Anti-Xa, P 0.33 IU/mL 2023 5:58 [...] Boubacar Brock M.D. LAB BLOOD NON ADD-ON [facility] [address] [place] [address], [facility] [address] [place] [address] * (ABNORMAL) Potassium (08/23/2023 9:58 PM CDT) [facility] Potassium, S 3.5(L) 3.6 - 5.2 mmol/L 08/23/2023 10:45 PM CDT DTL Blood (Blood, Venous) 08/23/2023 9:58 PM CDT 08/23/2023 10:30 PM CDT Boubacar Brock M.D. LAB BLOOD ADD-ON Performing Organization Address City/[facility]/ZIP Co de Phone Number [facility] [address] [place] [address], [facility] [address] [place] [address] * (ABNORMAL) Phosphorus Inorganic (08/23/2023 9:58 PM CDT) [facility] Phosphorus (Inorganic), S 2.1(L) 2.5 - 4.5 mg/dL 08/23/2023 10:45 PM CDT DT Blood (Blood, Venous) 08/23/2023 9:58 PM CDT 08/23/2023 10:30 PM CDT Paula Hernandez M.D. LAB BLOOD ADD-ON [facility] [address] [place] [address], [facility] [address] [place] [address] * Heparin Anti-Xa Assay (08/23/2023 11:37 AM CDT) [facility] Heparin Anti-Xa, P 0.51 IU/mL 2023 [...] Boubacar Brock M.D. LAB BLOOD NON ADD-ON [address] [address], [facility] [place] [address] * (ABNORMAL) CBC without Differential (08/23/2023 3:42 AM CDT) [facility] Hemoglobin 8.3(L) 13.2 - 16.6 g/dL [...] M.D. LAB BLOOD ADD-ON Performing Organization Address City/[facility]/ZIP Co de Phone Number [facility] [address] [place], [place] [phone] [place] [address] [address] [place] [address] * Triglycerides (08/23/2023 3:42 AM CDT) Triglycerides [...] BLOOD ADD-ON Performing Organization Address [facility] Co de Phone Number [facility] [address] [place], [place] [phone] [place] [address] [address] [place] [address] * Magnesium (08/23/2023 3:42 AM CDT) Magnesium, S 2.2 1.7 - 2.3 mg/dL 08/23/2023 4:50 AM CDT DTL Blood (Blood, Venous) 08/23/2023 3:42 AM CDT 08/23/2023 4:19 AM CDT Boubacar Brock M.D. LAB BLOOD ADD-ON Performing Organization Address City/[facility]/ZIP Co de Phone Number [facility] [address] [place] [address], [facility] DTL [facility] [address] [place] [address] * (ABNORMAL) Renal Function Panel (08/23/2023 3:42 [...] CDT Boubacar Brock M.D. LAB BLOOD ADD-ON [place] [address] * Heparin Anti-Xa Assay (08/23/2023 3:41 AM CDT) Pathologist [facility] Heparin Anti-Xa, P 0.51 IU/mL 2023 4:26 [...] Boubacar Brock M.D. [place] [address] * Glucose, POCT (08/22/2023 11:38 PM CDT) [facility] Glucose, POCT, B 117 70 - 140 mg/dL 08/23/2023 1:06 AM CDT PCLX Site Capillary 08/23/2023 1:06 AM CDT PCLX Last Intake NPO 08/23/2023 1:06 AM CDT PCLX Blood 08/22/2023 11:3 8 PM CDT 08/23/2023 1:06 AM CDT Unknown Provider LAB POCT ORDERABLES- MANUAL POC [facility] [address] [place] [address], [facility] PCLX [facility] POC [address] [place] [address] * Heparin Anti-Xa Assay (08/22/2023 10:14 PM [...] Boubacar Brock M.D. LAB BLOOD NON ADD-ON [facility] [address] [place] [address], [facility] [address] [place] [address] * CT Abdomen Pelvis without IV Contrast [...] Boubacar Brock M.D. LAB [place] [address], [facility] [address] [place] [address] * Creatinine, Body Fluid (08/22/2023 3:30 PM CDT) Pathologist [facility] Creatinine, BF 1.2 See Comment mg/dL 08/22/2023 [...] transport rates. All other fluids refer to www.[employer].com for further interpretive information. This test has been modified from the pressure steamer tender's instructions. Its performance characteristics were determined by [facility] in a manner consistent with CLIA requirements. This test has not been cleared or approved by the U.S. Food and Drug Administration. Fluid Type, Creatinine Fluid, Abdomen 08/22/2023 3:52 PM CDT DTL Fluid (Abdomen) 08/22/2023 3 :30 PM CDT 08/22/2023 6:36 PM CDT Corin Ring M.D. LAB BODY FLUIDS AND STOOLS ORDERABLES [facility] [address] [place] [address], [facility] [address] [place] [address] * Transfuse Red Blood Cells : (08/22/2023 [...] of a right IJ vein single-lumen 4 English tunneled PowerPICC ready for immediate use. NR [...] advanced into the IVC and a 4 English dilator advanced over the wire and attached to a one-way stopcock. A suitable exit site in the right anterior chest was anesthetized and a small incision made. A 4 English single-lumen PowerPICC was then tunneled from the [...] Wireadvanced into the IVC and a 4 English dilator advanced over the wire andattached to a one-way stopcock. A suitable exit site in the right anteriorchest was anesthetized and a small incision made. A 4 English single-lumen PowerPICC was then tunneled fromthe skin [...] of a right IJ vein single-lumen 4 English tunneled PowerPICCready for immediate use. NR Kimi [...] M.D. LAB BLOOD ADD-ON Performing Organization Address City/[facility]/ZIP Co de Phone Number [facility] [address] [place], [place] [id number] [place] [address] [facility] 200 [place] [address] * Type and Screen (with Reflex Antibody ID) (08/22/2023 2:55 AM CDT) Pathologist [facility] ABORh O Pos Not applicable 08/22/2023 3:25 AM CDT STRM Antibody Screen Negative Negative 08/22/2023 3:38 AM CDT STRM Type & Screen Expiration 08/25/2023 23:59 08/22/2023 3:25 AM CDT STRM Testing Location Marcio DEFAULT 08/22/2023 3:07 AM CDT STRM Blood (Blood, Venous) 08/22/2023 2:55 AM CDT 08/22/2023 3:07 AM CDT Latisha Whitehead M.D. LAB BLOOD BANK T EST ORDERABLES Performing Organization Address City/[facility]/ZIP Co de Phone Number [facility] [address] [place] [address], [facility] [place] [address] * (ABNORMAL) Comprehensive Metabolic Panel (08/22/2023 2:40 [...] M.D. LAB BLOOD ADD-ON Performing Organization Address City/[facility]/ZIP Co de Phone Number [facility] [address] [place] [address], [facility] [address] [place] [address] * Heparin Anti-Xa Assay (08/22/2023 2:40 AM CDT) Pathologist [facility] Heparin Anti-Xa, P 0.47 IU/mL 2023 3:28 [...] BLOOD NON AD D-ON Performing Organization Address [facility]/ZIP Co de Phone Number [facility] [address] [place] [address], [facility] [address] [place] [address] * (ABNORMAL) APTT (Activated Partial Thromboplastin Time) (08/22/2023 2:40 AM CDT) Pathologist [facility] Activated Partial Thrombopl Time, P 64(H) 25 - 37 sec 08/22/2023 3:12 AM CDT STMA Blood (Blood, Venous) 08/22/2023 2:40 AM CDT 08/22/2023 3:01 AM CDT Latisha Whitehead M.D. LAB BLOOD ADD-ON [facility] [address] [place] [address], [facility] [address] [place] [address] * Triglycerides (08/21/2023 7:32 AM CDT) Triglycerides [...] LAB BLOOD ADD-O N Performing Organization Address City/[facility]/ZIP Co de Phone Number [facility] [address] [place], [place] [phone] [place] [address] 200 [place] [address] * Phosphorus Inorganic (08/21/2023 7:32 AM CDT) Phosphorus (Inorganic), S 2.6 2.5 - 4.5 mg/dL 08/21/2023 9:03 AM CDT DTL Blood (Blood, Venous) 08/21/2023 7:32 AM CDT 08/21/2023 8:38 AM CDT Lizette Harvey M.D. LAB BLOOD ADD-O N Performing Organization Address City/[facility]/ZIP Co de Phone Number [facility] [address] [place] [address], [facility] [address] [place] [address] * Magnesium (08/21/2023 7:32 AM CDT) Magnesium, S 2.3 1.7 - 2.3 mg/dL 08/21/2023 9:03 AM CDT DTL Blood (Blood, Venous) 08/21/2023 7:32 AM CDT 08/21/2023 8:38 AM CDT Lizette Harvey M.D. LAB BLOOD ADD-O N [facility] [address] [place] [address], [facility] [address] [place] [address] * (ABNORMAL) Basic Metabolic Panel (08/21/2023 7:32 [...] ADD-O N Performing Organization Address [facility] Co de Phone Number [facility] [address] [place] [address], [facility] DTL [facility] [address] [place] [address] * (ABNORMAL) CBC without Differential (08/21/2023 7:32 [...] LAB BLOOD ADD-O N Performing Organization Address City/[facility]/ZIP Co de Phone Number [facility] [address] [place] [address], [facility] DTL [facility] [address] [place] [address] * Heparin Anti-Xa Assay (08/21/2023 7:32 AM [...] NON ADD-ON Performing Organization Address [facility]/ZIP Co de Phone Number [facility] [address] [place] [address], [facility] [address] [place] [address] * (ABNORMAL) APTT (Activated Partial Thromboplastin Time) (08/21/2023 7:32 AM CDT) Pathologist [facility] Activated Partial Thrombopl Time, P 49(H) 25 - 37 sec 08/21/2023 8:31 AM CDT [facility] Blood (Blood, Venous) 08/21/2023 7:32 AM CDT 08/21/2023 8:06 AM CDT Boubacar Brock M.D. LAB BLOOD ADD-ON Performing Organization Address City/[facility]/ZIP Co de Phone Number [facility] [address] [place] [address], [facility] [address] [place] [address] * Place peripherally inserted central catheter (PICC) [...] the atrophic right kidney. Lizette Harvey M.D. [facility] PROCEDUR ES * (ABNORMAL) Basic Metabolic Panel (08/20/2023 3:19 AM CDT) Pathologist [facility] Potassium, S [...] CDT Paula Hernandez M.D. LAB BLOOD ADD-ON [address] [address], [facility] [address] [address] * (ABNORMAL) CBC without Differential (08/20/2023 3:19 [...] M.D. LAB BLOOD ADD-ON Performing Organization Address City/[facility]/ZIP Co de Phone Number [facility] [address] [place] [address] * (ABNORMAL) APTT (Activated Partial Thromboplastin Time) (08/20/2023 3:19 AM CDT) Activated Partial Thrombopl Time, P 52(H) 25 - 37 sec 08/20/2023 4:33 AM CDT DTL Blood (Blood, Venous) 08/20/2023 3:19 AM CDT 08/20/2023 4:10 AM CDT Boubacar Brock M.D. LAB BLOOD ADD-ON Performing Organization Address City/[facility] Co de Phone Number [facility] [address] [place], [place] [phone] [place] [address] 200 [place] [address] * (ABNORMAL) APTT (Activated Partial Thromboplastin Time) (08/19/2023 10:57 AM CDT) Activated Partial Thrombopl Time, P 54(H) 25 - 37 sec 08/19/2023 11:44 AM CDT DTL Blood (Blood, Venous) 08/19/2023 10:57 AM CDT 08/19/2023 11:26 AM CDT Boubacar Brock M.D. LAB BLOOD ADD-ON Performing Organization Address City/[facility]/ZIP Co de Phone Number [facility] [address] [place] [address] * (ABNORMAL) APTT (Activated Partial Thromboplastin Time) (08/19/2023 4:51 AM CDT) [facility] Activated Partial Thrombopl Time, P 59(H) 25 - 37 sec 08/19/2023 5:53 AM CDT DT Blood (Blood, Venous) 08/19/2023 4:51 AM CDT 08/19/2023 5:36 AM CDT Boubacar Brock M.D. LAB BLOOD ADD-ON [facility] [address] [place] [address] * (ABNORMAL) APTT (Activated Partial Thromboplastin Time) (08/18/2023 10:03 PM CDT) [facility] Activated Partial Thrombopl Time, P 63(H) 25 - 37 sec 08/18/2023 10:41 PM CDT DT Blood (Blood, Venous) 08/18/2023 10:03 PM CDT 08/18/2023 10:19 PM CDT Boubacar Brock M.D. LAB BLOOD ADD-ON Performing Organization Address City/[facility]/ZIP Co de Phone Number [facility] [address] [place], [place] [phone] [place] [address] 200 [place] [address] * (ABNORMAL) APTT (Activated Partial Thromboplastin Time) (08/18/2023 2:50 PM CDT) [facility] Activated Partial Thrombopl Time, P 64(H) 25 - 37 sec 08/18/2023 3:25 PM CDT DT Blood (Blood, Venous) 08/18/2023 2:50 PM CDT 08/18/2023 3:07 PM CDT Boubacar Brock M.D. LAB BLOOD ADD-ON [facility] [address] [place] [address] * (ABNORMAL) APTT (Activated Partial Thromboplastin Time) (08/18/2023 6:42 AM CDT) [facility] Activated Partial Thrombopl Time, P 61(H) 25 - 37 sec 08/18/2023 7:28 AM CDT DTL Blood (Blood, Venous) 08/18/2023 6:42 AM CDT 08/18/2023 7:04 AM CDT Boubacar Brock M.D. LAB BLOOD ADD-ON [facility] [address] [place] [address] * (ABNORMAL) APTT (Activated Partial Thromboplastin Time) (08/17/2023 11:04 PM CDT) [facility] Activated Partial Thrombopl Time, P 40(H) 25 - 37 sec 08/17/2023 11:46 PM CDT DT Blood (Blood, Venous) 08/17/2023 11:04 PM CDT 08/17/2023 11:31 PM CDT Boubacar Brock M.D. LAB BLOOD ADD-ON [facility] [address] [place] [address] * US Lower Extremity Veins Bilateral (08/17/2023 [...] and management can be found on the Do[employer] site. Link [email or web address]/topic/clinical-answers/[email or web address]/[email or web address] Findings discussed with ??Tayler Greenwood, ?? ([id number]) on 08/17/2023 7:11 PM. Procedure Note Jj [...] management can be found on theAskMayoExpert site. [email or web address]/topic/clinical-[email or web address]/[email or web address]/cpm -[email or web address] 1725 Findings discussed with Tayler Greenwood MD ([id number]) on 08/17/2023 7:11 PM. IMPRESSION: 1. 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 2. No acute left-sided DVT. Corin Ring M.D. [facility] US PROCEDURES * APTT (Activated Partial Thromboplastin Time) (08/17/2023 4:56 PM CDT) Activated Partial Thrombopl Time, P 29 25 - 37 sec 08/17/2023 5:10 PM CDT STMA Blood (Blood, Venous) 08/17/2023 4:56 PM CDT 08/17/2023 5:00 PM CDT Paula Hernandez M.D. LAB BLOOD ADD-ON Performing Organization Address City/State/[facility] Co de Phone Number [facility] [address] [place] [address], [facility] STMA [facility] [address] [place] [address] * ECG 12 Lead (08/16/2023 9:43 PM CDT) Pathologist [facility] Ventricular Rate ECG/Min 134 BPM MUSE FL Interval 136 ms MUSE QRSD Interval 76 ms MUSE QT Interval 298 ms MUSE QTC Interval 445 ms MUSE P Lima 29 degrees MUSE R Lima -6 degrees MUSE T Wave Lima 21 degrees MUSE 08/16/2023 9:43 PM CDT [...] ECG ORDERABLES Performing Organization Address [facility] Co de Phone Number MUSE NA * (ABNORMAL) CBC without Differential (08/16/2023 9:40 PM CDT) Pathologist [facility] Hemoglobin 8.8(L) 13.2 - 16.6 g/dL 08/16/2023 [...] CDT Geneva Azar M.D. LAB BLOOD ADD-ON [facility] [address] [place] [address], [facility] [address] [place] [address] * (ABNORMAL) Basic Metabolic Panel (08/16/2023 9:40 PM CDT) [facility] Potassium, S 3.9 3.6 - 5.2 [...] CDT Geneva Azar M.D. LAB BLOOD ADD-ON [facility] [address] [place] [address], [facility] [address] [place] [address] * Transfuse Red Blood Cells : (08/16/2023 12:04 PM CDT) Corin Ring M.D. BLOOD TRANSFUSION OR DERABLES * Transfuse Red Blood Cells : , 1 Units (08/16/2023 12:04 PM CDT) Corin Ring M.D. BLOOD TRANSFUSION OR DERABLES * (ABNORMAL) Basic Metabolic Panel (08/16/2023 3:10 AM CDT) Pathologist [facility] Potassium, S 4.2 3.6 - 5.2 [...] BLOOD ADD-ON Performing Organization Address [facility]/ZIP Co de Phone Number [facility] [address] [place] [address], [facility] DTL [facility] [address] [place] [address] * (ABNORMAL) CBC without Differential (08/16/2023 3:10 [...] M.D. LAB BLOOD ADD-ON Performing Organization Address City/[facility]/ZIP Co de Phone Number [facility] [address] [place] [address], [facility] DTL [facility] [address] [place] [address] * (ABNORMAL) CBC with Differential, Blood (08/15/2023 3:58 PM CDT) Pathologist [facility] Hemoglobin 9.0(L) 13.2 - 16.6 g/dL 08/15/2023 [...] Henson M.D. LAB BLOOD ADD-ON [facility] [address] [place] [address], [facility] DTL [facility] [address] [place] [address] DHPM [facility] [address] [place] [address] * DX Abdomen 1 View (08/15/2023 1:19 [...] CDT 08/15/2023 12:03 PM CDT Rae Gonzalez [employer]ANG[employer]AGE [employer]OR, FLANGING ROLL OPERATOR, DNAP LAB BLOO D NON ADD-ON [facility] [address] [place] [address], [facility] STMA [facility] [address] [place] [address] * Lactate, B - Intra-op (08/15/2023 11:56 AM CDT) Lactate, B 1.1 0.5 - 2.2 mmol/L 08/15/2023 12:06 PM CDT STMA Blood (Blood, Venous) 08/15/2023 11:56 AM CDT 08/15/2023 12:03 PM CDT Hayde Song M.D. LAB BLOOD NON ADD-O N Performing Organization Address City/[facility]/ZIP Co de Phone Number [facility] [address] [place], [place] [address] [place] [address] 200 [place] [address] * (ABNORMAL) Glucose, Whole Blood (08/15/2023 11:56 AM CDT) Glucose 144(H) 70 - 140 mg/dL 08/15/2023 12:06 PM CDT STMA Blood (Blood, Arterial Line) 08/15/2023 11:56 AM CDT 08/15/2023 12:03 PM CDT Hayde Song M.D. LAB BLOOD ADD-ON Performing Organization Address City/[facility]/ZIP Co de Phone Number [facility] [address] [place] [address], [facility] [address] [place] [address] * Potassium, Blood (08/15/2023 11:56 AM CDT) Potassium, B 4.3 3.6 - 5.2 mmol/L 08/15/2023 12:07 PM CDT STMA Blood (Blood, Arterial Line) 08/15/2023 11:56 AM CDT 08/15/2023 12:03 PM CDT Hayde Song M.D. LAB BLOOD NON ADD-O N Performing Organization Address City/State/[facility] Co de Phone Number [facility] [address] [place] [address], [facility] [address] [place] [address] * Sodium, B (08/15/2023 11:56 AM CDT) Sodium, B 135 135 - 145 mmol/L 08/15/2023 12:06 PM CDT [facility] Blood (Blood, Arterial Line) 08/15/2023 11:56 AM CDT 08/15/2023 12:03 PM CDT Hyade Song M.D. LAB BLOOD NON ADD-O N Performing Organization Address City/[facility] Co de Phone Number [facility] [address] [place], [place] [address] [address] [place] [address] * (ABNORMAL) Calcium, Ionized (08/15/2023 11:56 AM CDT) Calcium, Ionized, B 4.53(L) 4.65 - 5.30 mg/dL 08/15/2023 12:07 PM CDT [facility] Blood (Blood, Arterial Line) 08/15/2023 11:56 AM CDT 08/15/2023 12:03 PM CDT Hayde Song M.D. LAB BLOOD NON ADD-O N [facility] [address] [place] [address], [facility] [address] [place] [address] * (ABNORMAL) Blood Gas with Coox, Arterial [...] LAB BLOOD NON ADD-O N [facility] [address] [place] [address], [facility] [address] [place] [address] * FL Fluoro Less Than 1 Hour [...] CDT 08/15/2023 10:28 AM CDT Rae Gonzalez SECOND LANGUAGE TUTOR, FLANGING ROLL OPERATOR, DNAP LAB BLOO D NON ADD-ON [facility] [address] [place] [address], [facility] [address] [place] [address] * Lactate, B - Intra-op (08/15/2023 10:28 AM CDT) Lactate, B 1.1 0.5 - 2.2 mmol/L 08/15/2023 10:30 AM CDT STMA Blood (Blood, Venous) 08/15/2023 10:28 AM CDT 08/15/2023 10:28 AM CDT Hayde Song M.D. LAB BLOOD NON ADD-O N Performing Organization Address City/[facility]/ZIP Co de Phone Number [facility] [address] [place] [address], [facility] [address] [place] [address] * Glucose, Whole Blood (08/15/2023 10:28 AM CDT) Glucose 134 70 - 140 mg/dL 08/15/2023 10:30 AM CDT STMA Blood (Blood, Arterial Line) 08/15/2023 10:28 AM CDT 08/15/2023 10:28 AM CDT Hayde Song M.D. LAB BLOOD ADD-ON [facility] [address] [place] [address], [facility] [address] [place] [address] * Potassium, Blood (08/15/2023 10:28 AM CDT) Potassium, B 4.1 3.6 - 5.2 mmol/L 08/15/2023 10:31 AM CDT STMA Blood (Blood, Arterial Line) 08/15/2023 10:28 AM CDT 08/15/2023 10:28 AM CDT Hayde Song M.D. LAB BLOOD NON ADD-O N [facility] [address] [place], [place] [address] [place] [address] 200 [place] [address] * Sodium, B (08/15/2023 10:28 AM CDT) Sodium, B 135 135 - 145 mmol/L 08/15/2023 10:30 AM CDT STMA Blood (Blood, Arterial Line) 08/15/2023 10:28 AM CDT 08/15/2023 10:28 AM CDT Narrative Authorizing Provider Result Abdifatah Song M.D. LAB BLOOD NON ADD-O N [facility] [address] [place], [place] [address] [place] [address] * (ABNORMAL) Calcium, Ionized (08/15/2023 10:28 AM CDT) Calcium, Ionized, B 4.25(L) 4.65 - 5.30 mg/dL 08/15/2023 10:31 AM CDT STMA Blood (Blood, Arterial Line) 08/15/2023 10:28 AM CDT 08/15/2023 10:28 AM CDT Hayde Song M.D. LAB BLOOD NON ADD-O N [facility] [address] [place] [address], [facility] [address] [place] [address] * (ABNORMAL) Blood Gas with Coox, Arterial (08/15/2023 10:28 AM CDT) [facility] Signature pO2 171(H) 83 - 108 mm Hg [...] LAB BLOOD NON ADD-O N [facility] [address] [place] [address], [facility] [address] [place] [address] * Bacteria / Yomaira Culture, Blood #2 (08/15/2023 3:33 AM CDT) Pathologist [facility] Bacteria/Leyla da Culture, Blood No growth after 5 days of incubation. 08/20/2023 6:02 AM CDT DTL Blood (Blood, Peripheral Draw) 08/15/2023 3:33 AM CDT 08/15/2023 5:58 AM CDT Comment:Specimen Source Site : Blood Narrative [facility] - 08/20/2023 6:02 AM CDT Received Bactec aerobic and Bactec anaerobic bottles Carlos Alberto Henson M.D. LAB MICROBIOLOGY - [facility] ORDERABLES [facility] [address] [place] [address], [facility] [address] [place] [address] * (ABNORMAL) Basic Metabolic Panel (08/15/2023 3:31 [...] BLOOD ADD-ON Performing Organization Address [facility] Co de Phone Number [facility] [address] [place] [address] * Bacteria / Yomaira Culture, Blood #1 (08/15/2023 3:31 AM CDT) [facility] Bacteria/Leyla da Culture, Blood No growth after 5 days of incubation. 08/20/2023 6:02 AM CDT DTL Blood (Blood, Peripheral Draw) 08/15/2023 3:31 AM CDT 08/15/2023 5:59 AM CDT Comment:Specimen Source Site : Blood Carlos Alberto Henson M.D. LAB MICROBIOLOGY - G ENERAL ORDERABLES Performing Organization Address [facility] de Phone Number [facility] [address] [place] [address] * (ABNORMAL) CBC with Differential, Blood (08/15/2023 3:30 AM CDT) [facility] Hemoglobin 9.5(L) 13.2 - 16.6 g/dL [...] Henson M.D. LAB BLOOD ADD-ON [facility] [address] [place] [address], [facility] DTL [facility] [address] [place] [address] DHPM [facility] [address] [place] [address] * (ABNORMAL) CBC with Differential, Blood (08/14/2023 8:08 PM CDT) [facility] Signature Hemoglobin 9.8(L) 13.2 - 16.6 [...] Henson M.D. LAB BLOOD ADD-ON [facility] [address] [place] [address], [facility] STMA [facility] [address] [place] [address] [facility] [address] [place] [address] * Transfuse Red Blood Cells : , 2 Units (08/14/2023 6:55 PM CDT) Carlos Alberto Henson M.D. BLOOD TRANSFUSION OR DERABLES * Transfuse Red Blood Cells : (08/14/2023 6:55 PM CDT) [facility] BLOOD TRANSFUSION OR DERABLES * Transfuse Red Blood Cells : (08/14/2023 3:40 PM CDT) [facility] BLOOD TRANSFUSION OR DERABLES * (ABNORMAL) CBC with Differential, Blood (08/14/2023 3:18 AM CDT) [facility] Hemoglobin 7.6(L) 13.2 - 16.6 g/dL [...] Henson M.D. LAB BLOOD ADD-ON [facility] [address] [place] [address], [facility] STMA [facility] [address] [place] [address] [facility] [address] [place] [address] * (ABNORMAL) Basic Metabolic Panel (08/14/2023 3:18 [...] M.D. LAB BLOOD ADD-ON Performing Organization Address City/[facility] Co de Phone Number [facility] [address] [place] [address], [facility] DTL [facility] [address] [place] [address] * Type and Screen (with Reflex Antibody ID) (08/13/2023 7:35 PM CDT) [facility] ABORh O Pos Not applicable 08/13/2023 7:58 PM CDT STRM Antibody Screen Negative Negative 08/13/2023 8:13 PM CDT STRM Type & Screen Expiration 08/16/2023 23:59 08/13/2023 7:58 PM CDT STRM Testing Location [facility] DEFAULT 08/13/2023 7:39 PM CDT STRM Blood (Blood, Venous) 08/13/2023 7:35 PM CDT 08/13/2023 7:39 PM CDT Carlos Alberto Henson M.D. LAB BLOOD BANK TEST ORDERABLES Performing Organization Address [facility] Co de Phone Number [facility] [address] [place] [address], [facility] [address] [place] [address] * (ABNORMAL) Bacteria / Yomaira Culture, Blood #1 (08/13/2023 7:35 PM CDT) [facility] Bacteria/Cand jessica Culture, Blood ESCHERICHIA COLI Growth after 11 Hours (A) 08/16/2023 11:17 AM CDT DTL Comment: 3 of 3 Bottles, Susceptibilities performed on another specimen [id number] Blood (Blood, Peripheral Draw) 08/13/2023 7:35 PM CDT 08/13/2023 8:15 PM CDT Comment:Specimen Source Site : Blood Carlos Alberto Henson M.D. LAB MICROBIOLOGY - G ENERAL ORDERABLES [facility] [address] [place] [address], [facility] DTL [facility] [address] [place] [address] * ECG 12 Lead (08/13/2023 7:02 PM CDT) Ventricular Rate ECG/Min 128 BPM MUSE FL Interval 138 ms MUSE QRSD Interval 64 ms MUSE QT Interval 304 ms MUSE QTC Interval 443 ms MUSE P Lima 45 degrees MUSE R Lima 34 degrees MUSE T Wave [place] 46 degrees MUSE 08/13/2023 7:02 PM CDT 08/13/2023 7:13 PM CDT Impressions MUSE - 08/13/2023 7:13 PM CDT Sinus tachycardia Otherwise normal ECG No previous ECGs available Reviewed by BETTY Walton Narrative Procedure Note Lucas Lee M.D. - 08/13/2023 IMPRESSION: Sinus tachycardia Otherwise normal ECG No previous ECGs available Reviewed by BETTY Walton Toby Wright ECG ORDERABLES Performing Organization Address [facility] Co de Phone Number MUSE NA * [...] CDT Comment:Specimen Source Site : Blood Narrative [facility] - 08/16/2023 11:17 AM CDT [...] M.D. LAB MICROBIOLOGY - G ENERAL ORDERABLES [address] [address], [facility] [address] [address] * Magnesium (08/13/2023 5:27 PM CDT) Magnesium, S 1.9 1.7 - 2.3 mg/dL 08/13/2023 6:12 PM CDT DTL Blood (Blood, Venous) 08/13/2023 5:27 PM CDT 08/13/2023 5:58 PM CDT Carlos Alberto Henson M.D. LAB BLOOD ADD-ON Performing Organization Address [facility]/ZIP Co de Phone Number [facility] [address] [place], [place] [phone] [place] [address] [facility] [address] [place] [address] * (ABNORMAL) Hepatic Function Panel (08/13/2023 5:27 [...] M.D. LAB BLOOD ADD-ON Performing Organization Address City/[facility]/ZIP Co de Phone Number [facility] [facility] [address] [place] [address], [facility] [address] [place] [address] * (ABNORMAL) Basic Metabolic Panel (08/13/2023 5:27 [...] Alberto Henson M.D. LAB BLOOD ADD-ON [facility] [address] [place] [address], [facility] [address] [place] [address] * Prothrombin Time (PT) (08/13/2023 5:27 PM [...] Henson M.D. LAB BLOOD ADD-ON [facility] [address] [place] [address], [facility] [address] [place] [address] * (ABNORMAL) CBC with Differential, Blood (08/13/2023 [...] Henson M.D. LAB BLOOD ADD-ON [facility] [address] [place] [address], [facility] STMA [facility] [address] [place] [address] DHPM [facility] [address] [place] [address] * (ABNORMAL) Dipstick, Urine (08/13/2023 5:07 PM [...] Henson M.D. LAB URINE ORDERABLES [facility] [address] [place] [address], [place] [facility] [address] [place] [address] * Osmolality, Urine (08/13/2023 5:07 PM CDT) Osmolality, U 351 150 - 1150 mOsm/kg 08/13/2023 7:46 PM CDT DTL Urine 08/13/2023 5:07 PM CDT 08/13/2023 5:45 PM CDT Carlos Alberto Henson M.D. LAB URINE ORDERABLES [facility] [address] [place] [address], [facility] [address] [place] [address] * (ABNORMAL) Microscopic Manual (08/13/2023 5:07 PM [...] Henson M.D. LAB URINE ORDERABLES [facility] [address] [place] [address], [facility] [address] [place] [address] * pH, Random, Urine (08/13/2023 5:07 PM CDT) pH, Random, U 7.0 4.5 - 8.0 08/13/2023 7:46 PM CDT DTL Urine 08/13/2023 5:07 PM CDT 08/13/2023 5:45 PM CDT Carlos Alberto Henson M.D. LAB URINE ORDERABLES [facility] [address] [place] [address], [facility] [address] [place] [address] * (ABNORMAL) Bacterial Culture, Aerobic + Susceptibility, [...] Carlos Alberto Henson M.D. LAB MICROBIOLOGY - [facility] ORDERABLES [facility] [address] [address], [facility] [place] [address] * (ABNORMAL) Urinalysis, with Microscopic: Urine, Midstream [...] CDT DTL Predicted 24 [place] [address](H) <229 mg/24 h 08/13/2023 8:50 PM CDT DTL Predicted Range 63670-502100 mg/24 h 08/13/2023 8:50 PM CDT DTL Comment Micro done on <2.5 mL 08/13/2023 7:55 PM CDT DTL Urine (Urine, Midstream) 08/13/2023 5:07 PM CDT 08/13/2023 5:44 PM CDT Carlos Alberto Henson M.D. LAB URINE ORDERABLES [facility] [address] [place] [address], [facility] DTL [facility] [address] [place] [address] * Interpretation of Outside CT Abdomen and [...] Every 6 hours PRN, indigestion, Starting on 08/20/23 at 2000 Given 08/21/2023 10:16 PM CDT [...] clearance factors., Indications: Lower UTI, catheter New 08/13/2023 7:48 PM CDT 2 g 200 mL/hr cefTRIAXone in dextrose (iso osm) IVPB 2 g (ROCEPHIN) 2 g, intravenous, at 200 mL/hr, Administer over 15 Minutes, Once, On Tue08/14/23 at 2000, For 1 dose, Drug Monitoring Program: Pharmacist to adjust medication dosing based on indication and drug clearance factors., Indications: Blood stream infection 08/14/2023 8:15 PM CDT 2 g 200 mL/hr cefTRIAXone in dextrose (iso osm) IVPB 2 g (ROCEPHIN) 2 g, intravenous, at 200 mL/hr, Administer over 15 Minutes, Every 24 hours, First dose on Tue08/15/23 at 2000, Drug Monitoring Program: Pharmacist to adjust medication dosing based on indication and drug clearance factors., Indications: Blood stream infection New 08/21/2023 8:22 PM CDT 2 g 200 mL/hr 08/20/2023 9:08 PM CDT 2 g 200 mL/hr 08/19/2023 7:29 PM CDT 2 g 200 mL/hr clopidogreL tablet 75 mg (PLAVIX) 75 mg, oral, Daily, First dose on Tue08/26/23 at 0900 Given 08/26/2023 9:15 AM CDT 75 mg D5W with KCl 20 mEq/L infusion 100 mL/hr, intravenous, Continuous, Starting on Tue08/21/23 at 0745, For 1 day 14 hours 08/22/2023 4:48 AM CDT 100 mL/hr 100 [...] may use home supply. 08/17/23: Id'ed by [facility] Rx# [id number], filled 07/22/23. HAZARDOUS - Handle with care. Swallow whole. Do NOT crush, chew or open capsule. Given 08/26/2023 9:12 AM CDT 120 mg Given 08/25/2023 9:08 AM CDT 120 mg Given 08/24/2023 9:12 AM CDT 120 mg fat emulsion dve-rbh-zrwqy & fish oil infusion 50 g (SMOFlipid) [...] Lactated Ringer's 1.5 mL/kg/hr ? 75 kg Kenedy weight (112.5 mL/hr, rounded to 113 mL/hr), intravenous, Continuous, Starting on Tue08/22/23 at 1030, Conditional Phase Pre-Gastrografin Administration. (Rate = 1.5 mL/kg/hr ideal body weight) Lactated Ringer's 0.75 mL/kg/hr ? 75 kg Kenedy weight (56.25 mL/hr, rounded to 56.3 mL/hr), intravenous, Continuous, Starting on 08/22/23 at 1100, Post-Gastrografin Administration (Rate=0.75 mL/kg/hr ideal [...] 0.9%-0.84% injection infiltration, As needed, Starting on 08/22/23 at 0835, Intra-Op Given 08/22/2023 8:35 AM [...] replacement: Potassium, Replace Potassium per: Standard Schedule 08/22/2023 1:13 PM CDT 10 mEq 100 [...] Howe R.N.)1521 (Given - Provider: Mary Rosado RJonahNJonah) 0640 (Given - Provider: Fatuma See RNarendra)1750 (Given - Provider: Antonia Salazar RNarendra) 0627 (Given - Provider: Edith [...] - Reason: Patient/family refused)215 (Given - Provider: Fatmua See R.N.) 0852 (Not Given - Provider: Tayler Forrest R.N. - Reason: Patient/family refused)2131 (Given - Provider: Antonia Salazar R.N.) 0915 (Given - Provider: Lupe Valdez R.N.) enzalutamide capsule 120 mg (XTANDI) PATIENT'S OWN MED 120 mg, oral, Daily, First dose (after last modification) on Tue08/17/23 at 1230, Patient may use home supply. 08/17/23: Id'ed by [facility] Rx# [id number], filled 07/22/23. HAZARDOUS - Handle with care. Swallow whole. Do NOT crush, chew or open capsule. 09 (Given - Provider: Tayler Forrest R.N. - Comment: Pat Murray, -2nd RN) 09 (Given - Provider: Tayler Forrest R.N. - Comment: Pt 's own med from home) 911 (Given - Provider: Lupe Valdez R.N.) fat emulsion ffk-iwe-mlgfo & fish oil infusion 50 g (SMOFlipid) [...] R.N.)2131 (Given - Provider: Antonia Salazar R.N.) 15 (Given - Provider: Lupe Valdez R.N.) pantoprazole [...] Provider: Fatuma See RJonahN.)1749 (Given - Provider: Antonia Salazar RJonahN.) 0626 (Given - Provider: Edith [...] Verified with JAMEL Sharma)1153 (Stopped - Provider: uLpe Valdez R.N.) Lactated Ringer's 1.5 mL/kg/hr ? 75 kg Kenedy weight (112.5 mL/hr, rounded to 113 mL/hr), intravenous, Continuous, Starting on Tue08/22/23 at 1030, Conditional Phase Pre-Gastrografin Administration. (Rate = 1.5 mL/kg/hr ideal body weight) Lactated Ringer's 0.75 mL/kg/hr ? 75 kg Kenedy weight (56.25 mL/hr, rounded to 56.3 mL/hr), [...] or score 7-10 of 10, Starting on 5/14/24 at 1547 documented in this encounter Care Teams Textile Conversion Manager Relationship Specialty Start Date End Date Elsewhere, Pcp PCP - General Internal Medicine 08/13/23 documented as of this encounter
--- OUTSIDE RECORDS SUMMARY | 2023-09-30 12:48 | XMS_ITS | Data Portability ---
Author Organization [facility], [facility] Address [address] [place] [address] Care Team Providers Care Medical Reimbursement Manager Name Role Phone MASOUD SAUER Primary Care Provider Assessment No assessment recorded. Plan of Treatment Reminders Order Date Submit Date Provider Last Modified By Organization Details Last Modified Time Details Appointments None recorded . Lab urinalys is, dipstick 2023 024 [email or web address], [address] [place], [address], 4 15:08:54 culture, urine 2023 024 [facility], [address], [place], [address], 4 10:11:11 Referral None recorded . Procedures None recorded . Surgeries cystosco py with ureteral stent exchange (SURG) 2021 022 [email or web address] Not available 2 15:46:30 cystosco py with ureteral stent exchange (SURG) 2021 022 Not available 2 16:50:47 Imaging None recorded . Medication Orders Bactrim DS 800 mg-160 mg tablet 2023 024 [email or web address] [id number], [address] [place], [place], [phone], 4 16:19:28 Myrbetri q 50 mg tablet,e xtended release 2021 022 [id number], [address] , [place], [place], [id number], 17:50:02 Patient TargetsNo targets recorded. Patient InstructionsNo instructions recorded. Reason for Referral None Reported. Results Created Date Observation Date Name Description Value Unit Range Abnormal Flag LastModifiedBy Organization Detail LastModifiedTime 06/23/1906/23/2023 URINE CULTU RE final report MICROB IOLOGY RESULT S Not Available [facility] [address], [place], [address], 06/25/2023 10:11:11 06/23/19 24 06/23/2023 urina lysis , dipst ick Color-Status Red Not Available [facility] [address], [place], [address], 06/23/2023 15:08:10 06/23/19 24 06/23/2023 urina lysis , dipst ick pH-Status 7.5 Not Available [facility] [address], [place], [address], 06/23/2023 15:08:10 06/23/19 24 06/23/2023 urina lysis , dipst ick Protein-Stat us >=9.0 Not Available [facility] [address], [place], [address], 06/23/2023 15:08:10 06/23/19 24 06/23/2023 urina lysis , dipst ick Nitrates-Sta tus negati ve Not Available [facility] [address], [place], [address], 06/23/2023 15:08:10 06/23/19 24 06/23/2023 urina lysis , dipst ick Blood-Status Large Not Available [facility] [address], [place], [address], 06/23/2023 15:08:10 06/23/19 24 06/23/2023 urina lysis , dipst ick Leuko-Status Negati ve Not Available [facility] [address], [place], [address], 06/23/2023 15:08:10 06/23/19 24 06/23/2023 urina lysis , dipst ick Specimen Type Voided Not Available [facility] [address], [place], [address], 06/23/2023 15:08:10 03/04/20 20 03/03/2020 NM, bone scan, whole body No observ ation record ed. [email or web address] [facility] [address], [place], [address], 03/11/2020 18:09:57 07/04/19 24 07/01/2023 CT, abdom en + pelvi s, w/o contr ast No observ ation record ed. [email or web address] [facility] [address] [place] [address], [place], [address], 09/01/2023 14:40:29 07/18/19 24 07/18/2023 XR, kidne y + urete r + bladd er No observ ation record ed. [email or web address] [facility] [address], [place], [address], 07/22/2023 15:56:19 Result Notes None recorded. Procedures Surgical History Date Name Laterality Status Provider Name and Address Organization Details Recorded Time Bladder Scan completed Rabia matthews [facility] 06/23/2023 15:08:00 Cystoscopy completed Nicola Ware MD [address], [place], [address], [facility] 12/30/2021 17:11:17 Colonoscopy completed Nicola Ware MD [address] [place] [address],[address], [place], [address], [facility] 12/30/2021 17:11:22 Imaging Results Imaging Date Name Status LastModified by Organiz ation Details LastModified Time 03/03/2020 NM, bone scan, whole body completed [email or web address] [facility] [address], [place], [address], 03/11/2020 18:09:57 07/01/2023 CT, abdomen + pelvis, w/o contrast completed [address] [facility] [address], [place], [address], 09/01/2023 14:40:29 07/18/2023 XR, kidney + ureter + bladder completed [email or web address] [address], [place], [address], 07/22/2023 15:56:19 Procedure Notes None recorded. Medical [...] PY PREP INSTRUCTI ONS RECEIVED FROM [facility] active Not Available Not Available No t Available furosemide 20 mg tablet TAKE 1 TABLET BY MOUTH DAILY active Not Available Not Available No t Available cefuroxime axetil 500 mg tablet active Not Available Not Available No t Available polyethylen e glycol 3350 17 gram/dose oral powder MIX AND DRINK DIRECTED IN [facility] PY PREP INSTRUCTI ONS RECEIVED FROM [facility] active Not Available Not Available No [...] Updated DateTime 12/30/2021 177.8 cm 27.4 kg/m2 53105.14 g Nicola Ware MD [address] [facility],[address], [address], [facility] 12/30/2021 17:10:12 Date Recorded Body height Body mass index (BMI) Body weight Provider Name and Address Organization Details Last Updated DateTime 03/12/2022 177.8 cm 27.4 kg/m2 00529.14 g Rabia Ferrell [facility] 03/12/2022 13:55:47 Social History Question Answer Notes LastModified by Organizat ion Details LastModified Time Tobacco Smoking Status Never Smoker Nicola Ware MD [address] [facility] [address] [facility],[address], [address], [facility] 12/30/2021 17:11:00 What Is [...] Encounter Closed Date Diagnosis/Indication Diagnosis SNOMED-CT Code [id number] MD MICHELLE [facility] [address] [place] [address] 12/30/2021 16:01:19 01/01/2022 09:36:50 Increased frequency of urination [id number] Malignant tumor of prostate 456935207 Hydronephrosis [id number] Aliza Landeros [facility] [address] [place] [address] 03/12/2022 13:13:50 03/15/2022 14:00:47 Increased frequency of urination [id number] Malignant tumor of prostate 115300916 Hydronephrosis [id number] MD MICHELLE [facility] [address] [place] [address] 06/23/2023 14:16:52 06/24/2023 08:40:38 Blood in urine 79118003 Health Concerns Section Related Observation LastModified by Organization Detai ls LastModified Time None Recorded Concern Status LastModified by Organization Details LastModified Time None Recorded Advance Directives Directive None Recorded Payers Encounter Date Sequence Insurance Name Policy Number Policy Krishnan Covered Member ID Krishnan Member ID Guarantor Name 06/23/2023 1 [employer] (MEDICARE REPLACEMENT/ ADVANTAGE - PPO) [id number] José Miguel D Braucher [id number] José Miguel D Braucher 03/12/2022 1 [employer] (MEDICARE REPLACEMENT/ ADVANTAGE - PPO) [id number] José Miguel D Braucher [id number] José Miguel D Braucher 12/30/2021 1 [employer] (MEDICARE REPLACEMENT/ ADVANTAGE - PPO) [id number] José Miguel D Braucher [id number] José Miguel D Braucher Notes Date Note Type Note Provider Name and Address Organization Details Recorded Time 12/30/2021 text/html HPI Notes: Excer pt from hospital consultation... 81 y.o. year old male who was admitted to [facility] for gross hematuria & CT findings. [...] some of the history. Nicola Ware MD [address] [place] [address],[address], [place], [address], [place] [facility] 12/30/2021 23:07:10 03/12/2022 text/html HPI Notes: Excer pt from hospital consultation... 81 y.o. year old male who was admitted to [facility] for gross hematuria & CT findings. [...] of the history. Nicola Ware MD [address] [place] [address],[address], [address], [facility] 03/12/2022 17:21:47 06/23/2023 text/html HPI Notes: 83 Y male here after calling triage this AM with hematuria/pain with urination. Patient has stent in place, last exchange 02/08/2022. 06/23/23 visit completed by Curry Ware MD [address] [place] [address],[address], [place], [address], [facility] 06/23/2023 16:19:33
--- OUTSIDE RECORDS SUMMARY | 2023-09-30 12:48 | XMS_ITS | Encounter Summary ---
Author Organization [facility] Address [address] [place] [address] Care Team Providers Care Spooling Machine Operator Name Role Phone Elsewhere, Pcp Primary Care Provider Unavailabl e Encounter Details Date Type Department Care Team (Latest Contact Info) Description 08/13/2023 Intake [facility] Social History Tobacco Use Types Packs/Day Years Used Date Smoking Tobacco: Never Smokeless Tobacco: Never [facility] Utilities Answer Date Recorded In the [...] your living situation today? I have a [facility] place to live 08/13/2023 Sex and Gender Information Value Date Recorded Sex Assigned at Not on file Gender Identity Not on file Sexual Orientation Not on file documented as of this encounter Plan of Treatment Upcoming Encounters Date Type Department Care Team (Late st Contact Info) Description 10/14/2023 1:00 PM CDT Procedure visit Department of Urology in [place], [place] [address] [place] [address] Paula Hernandez M.D. 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
--- OUTSIDE RECORDS SUMMARY | 2023-09-30 12:48 | XMS_ITS | Clinical Summary ---
Author Organization [employer] [facility] Address [place], [place] [address] Care Team Providers Care Sewing Machine Mechanic Name Role Phone Cesar Mccollum MD Primary Care Provider Nicola Mcgarry MD Unavailable [phone] Mireya Tan MD Unavailable [phone] Unavailable [phone] Allergies No known active allergies Medications Medication [...] type, unspecified whether angina present, unspecified whether gulkana or transplanted heart Take 1 Tablet (75 [...] for 7 days. 14 Tablet 09/21/2023 09/28/2023 levoFLOXacin (LEVAQUIN) 250 mg tabletIndications:Com plicated UTI (urinary tract infection) Take 1 Tablet (250 mg) by mouth once daily for 5 days. 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 EPK=517.87 Bladder mass 02/29/2020 04/30/2020 Hematuria 02/29/2020 03/05/2020 Acute deep vein thrombosis (DVT) 02/29/2020 11/20/2020 S/P coronary angioplasty 11/03/2016 Chest pain 09/15/2016 03/05/2020 Elevated prostate specific antigen (PSA) 10/06/2010 03/05/2020 Hip arthritis 10/06/2010 03/05/2020 Colon polyp 07/15/2010 PATRICE (acute kidney injury) Obstructive uropathy 020 Encounters Date Type Department Care Team Description 09/29/2023 1:40 PM CDT Office Visit [facility] [address] [place] [facility] [place] [address] Cesar Mccollum MD Hospital F/U ([place], urinary problem); Concerns (Bed sore - would like checked) 09/29/2023 Travel 09/23/2023 Telephone [facility] [address] [facility] [place] [address] Cesar Mccollum MD Results 09/22/2023 10:30 AM CDT Orders [place] [address] [place] [address] Lab, [place] 09/22/2023 9:50 AM CDT Nurse/Clinic Staff Only [facility] [address] [facility] [place] [address] Dressing Change 09/22/2023 Telephone [facility] [address] [facility] [place] [address] Cesar Mccollum MD Results 09/22/2023 Travel 09/21/2023 3:20 PM CDT Nurse/Clinic Staff Only [facility] [address] [facility] [place] [address] Procedure (UA collection from jon and neph tube) 09/21/2023 Telephone [facility] [address] [place] [address] Letty Mera MD 09/20/2023 2:15 PM CDT Ancillary Procedure [facility] [address] [facility] [place] [address] 09/20/2023 1:00 PM CDT Office Visit [facility] [address] [facility] [place] [address] Letty Mera MD Hospital F/U (Admission Date: 09/09/2023 Discharge Date: 09/15/23); Wound Check (sacrum & neph tube site. ); Home Care; Concerns (Feels like catheter is falling out - pt states that it is leaking. ) 09/20/2023 Travel 09/15/2023 Transcribe Orders [facility] [address] [place] [address] Provider, Non-Excellian 09/13/2023 Telephone [facility] [address] [place] [address] Cesar Mccollum MD Procedure (social and human services assistant) 08/31/2023 Transcribe Orders [address] [address] Senthil Alvarez MD 08/30/2023 Orders Only [facility] Scanner 1 scan: (1-Ord) [facility], 08/30/2023 08/23/2023 Transcribe Orders [address] [address] Provider, Non-Excellian 08/13/2023 Orders Only [facility] Scanner 1 scan: (1-Ord) [facility], [facility]/PELVIS W/O, 08/13/2023 08/04/2023 11:30 AM CDT Office Visit [facility] [address] [place] [address] Sandip Garcia, AuD Hearing Aid 08/04/2023 Travel 08/02/2023 2:30 PM CDT Orders Only [facility] [address] [place] [address] Lab, [facility] 08/02/2023 Travel 08/02/2023 Orders Only [facility] [address] [place] [address] Cesar Mccollum MD <No scans attached> 07/21/2023 8:55 AM CDT Office Visit [address] [place] [address] Cesar Mccollum MD Medicare ANNUAL (subsequent) Visit (83 year old); Post Procedure (Uteretal stent exchange) 07/21/2023 Travel 07/18/2023 10:00 AM CDT Anesthesia Event [facility] [address] [place] [address] Leonardo Frankel MD Purdy, Adam John, GAVIN 07/18/2023 9:45 AM CDT - 07/18/2023 10:54 AM CDT Surgery [facility] [address] [place] [address] Nicola Mcgarry MD CYSTOSCOPY EXCHANGE, RIGHT URETERAL STENT 07/18/2023 7:41 AM CDT - 07/18/2023 3:26 PM CDT Hospital Encounter [facility] [address] [place] [address] Nicola Mcgarry MD Other hydronephrosis (Primary Dx) Discharge Disposition: Home Self Care 07/18/2023 Travel 07/15/2023 8:20 AM CDT Preop Visit [facility] [address] [place] [address] Shannan Bain, Pre-Op Exam (/BLADDER SURGERY [facility] MCGARRY 07/18/23) 07/15/2023 Travel 07/11/2023 Orders Only [facility] Scanner 1 scan: (1-Ord) [facility] CL[facility] REPORT, 07/11/2023 07/06/2023 Telephone [facility] [address] [place] [facility] [place] [address] Cesar Mccollum MD Follow Up 07/05/2023 4:00 PM CDT Orders Only [facility] [address] [place] [facility] [place] [address] Lab[facility] 07/05/2023 Travel 07/05/2023 Orders Only [facility] [address] [place] [place] [address] Cesar Mccollum MD <No scans attached> 07/01/2023 8:30 AM CDT Ancillary Procedure [facility] [address] [place] [address] 07/01/2023 Travel from Last 3 Months Immunizations Name Administration Dates Next Due COVID-19 Vaccine Spikevax (M oderna 50mcg/0.5mL) 12YO+ [id number] Formula PF 07/21/2023,03/08/2023 COVID-19 vaccine (Hinacom-Bio NTech 30mcg/0.3mL) 12YO+ BIVALENT PF, MDV 09/13/2022,01/28/2022 [...] Sign Reading Time Taken Comments Blood Pressure 123/78 09/29/2023 1:38 PM CDT Pulse 72 09/29/2023 1:38 PM CDT Temperature 36.9 ??C (98.4 ??F) 09/22/2023 10:15 AM C DT Respiratory Rate 16 07/18/2023 12:15 PM CDT Oxygen Saturation 90% 09/29/2023 1:38 PM CDT Inhaled Oxygen Concentration - - Weight 81.8 kg (180 lb 6.4 oz) 09/29/2023 1:38 P M CDT Height 177.1 cm (5' 9.72) 07/21/2023 9:05 AM CD T Body Mass Index 26.09 07/21/2023 9:05 AM CDT Plan of Treatment Upcoming Encounters Date Type Department Care Team (Late st Contact Info) Description 10/01/2023 4:35 AM CDT Appointment [facility] [address] [place] [address] 10/04/2023 1:00 PM CDT Office Visit [facility] [address] [place] [phone] Regan Miller MD [address] [place] [address] 10/20/2023 10:35 AM CDT Office Visit [facility] [address] [place] [address] Cesar Mccollum MD [address] [place] [address] Health Maintenance Due Date Last Done Comments [...] Completed 4 Medical Devices Implanted Type Area Wheelabrator Operator Device Identifier Shelf Expiration Date Model / Serial / Lot Stent Uret [id number] Contour - [id number] Implanted:Qty: 1 on 07/18/2023 by Nicola Mcgarry MD at [facility] Right: Ureter [facility] Urology 02/27/2026 [id number] / / [id number] Procedures Procedure Name Priority Date/Time Associated Diagnosis [...] is included. Pathologist [facility] WHITE BLOOD COUNT 11.0 4.5 - 11.0 thou/cu mm 09/22/2023 10:46 AM CDT [facility] RED BLOOD COUNT 2.81(L) 4.30 - 5.90 mil/cu mm 09/22/2023 10:46 AM CDT [facility] HEMOGLOBIN 8.0(L) 13.5 - 17.5 g/dL 09/22/2023 10:46 AM CDT [facility] HEMATOCRIT 25.2(L) 37.0 - 53.0 % 09/22/2023 10:46 AM CDT [facility] MCV 90 80 - 100 fL 09/22/2023 10:46 AM CDT [facility] MCH 28.5 26.0 - 34.0 pg 09/22/2023 10:46 AM CDT [facility] MCHC 31.7(L) 32.0 - 36.0 g/dL 09/22/2023 10:46 AM CDT [facility] RDW 17.5(H) 11.5 - 15.5 % 09/22/2023 10:46 AM CDT [facility] PLATELET COUNT 466(H) 140 - 440 thou/cu mm 09/22/2023 10:46 AM CDT [facility] MPV 8.9 6.5 - 11.0 fL 09/22/2023 10:46 AM T [facility] % NEUT 86.3 % 09/22/2023 10:46 AM CDT [facility] % LYMPH 6.6 % 09/22/2023 10:46 AM CDT [facility] % MONO 5.8 % 09/22/2023 10:46 AM CDT [facility] % EOS 1.2 % 09/22/2023 10:46 AM CDT [facility] % BASO 0.1 % 09/22/2023 10:46 AM CDT [facility] ABSOLUTE NEUTROPHILS 9.5(H) 1.7 - 7.0 thou/cu mm 09/22/2023 10:46 AM CDT [facility] ABSOLUTE LYMPHOCYTES 0.7(L) 0.9 - 2.9 thou/cu mm 09/22/2023 10:46 AM CDT [facility] ABSOLUTE MONOCYTES 0.6 <0.9 thou/cu mm 09/22/2023 10:46 AM CDT [facility] ABSOLUTE EOSINOPHILS 0.1 <0.5 thou/cu mm 09/22/2023 10:46 AM CDT [facility] ABSOLUTE BASOPHILS 0.0 <0.3 thou/cu mm 09/22/2023 10:46 AM CDT [facility] Blood BLOOD SPECIMEN / Unknown Venipuncture / Unknown 09/22/2023 10:39 AM CDT 09/22/2023 10:43 AM CDT Letty Mera MD HEMATOLOGY [facility] [address] [place] [address], [place] [phone] * (ABNORMAL) URINE CULTURE (09/21/2023 4:40 PM CDT) Only the most recent of2 resultswithin the time period is included. CULTURE RESULT(A) 09/24/2023 9:54 AM CDT [facility] CULTURE >100,000 CFU/mL Shirin albicans 09/24/2023 9:54 AM CDT [facility] Urine URINE SPECIMEN / Unknown Non-Blood / Unknown 09/21/2023 4:40 PM CDT 09/21/2023 4:41 PM CDT Letty Mera MD [facility] [address] [place] [address], [place] * XR CHEST 2 VIEWS PA [...] - 17.5 g/dL 08/02/2023 2:31 PM CDT [facility] MCV 89 80 - 100 fL 08/02/2023 2:31 PM CDT [facility] Blood BLOOD SPECIMEN / Unknown Venipuncture / Unknown 08/02/2023 2:26 PM CDT 08/02/2023 2:26 PM CDT Cesar Mccollum MD HEMATOLOGY Performing Organization Address City/[facility]/ZIP Co de Phone Number [facility] [address] [place] [address], * HEMOGLOBIN A1C SCREENING (07/21/2023 9:58 AM CDT) Pathologist [facility] HEMOGLOBIN A1C SCREENING 5.4 <=6.4 % 07/21/2023 5:56 PM CDT [facility] Blood BLOOD SPECIMEN / Unknown Venipuncture / Unknown 07/21/2023 9:58 AM CDT 07/21/2023 10:00 AM CDT Narrative [facility] - 07/21/2023 5:56 PM CDT ? (<5.7%) ?Normal ? (5.7% to 6.4%) ? Indicates prediabetes ? (>=6.5%) ? Confirms diabetes Falsely low levels may be seen with: Recent Transfusion, Recent Significant Blood Loss, Hemolytic Diseases, or Falsely elevated levels may be seen with: Untreated Anemias, Splenectomy Cesar Mccollum MD CHEMISTRY [facility] [address] [place] [address], [place] * XR RETROGRADE PYELOGRAM W/WO KUB [...] - 145 mmol/L 07/15/2023 5:14 PM CDT [facility] POTASSIUM 4.7 3.5 - 5.1 mmol/L 07/15/2023 5:14 PM CDT [facility] CHLORIDE 106 98 - 107 mmol/L 07/15/2023 5:14 PM CDT [facility] CO2,TOTAL 24 22 - 29 mmol/L 07/15/2023 5:14 PM CDT [facility] ANION GAP 11 5 - 18 07/15/2023 5:14 PM CDT [facility] GLUCOSE 91 70 - 99 mg/dL 07/15/2023 5:14 PM CDT [facility] CALCIUM 9.3 8.8 - 10.2 mg/dL 07/15/2023 5:14 PM CDT [facility] BUN 22 8 - 23 mg/dL 07/15/2023 5:14 PM CDT [facility] CREATININE 1.32(H) 0.70 - 1.20 mg/dL 07/15/2023 5:14 PM CDT [facility] BUN/CREAT RATIO 17 10 - 20 5:14 PM CDT [facility] eGFR 53(L) >90 mL/min/1.7 3m2 07/15/2023 5:14 PM CDT [facility] Comment:As of 2021, eG [...] 9:40 AM CDT Shannan Bain DO [facility] [address] * SCAN-LABORATORY REPORT (07/11/2023 12:00 AM CDT) [...] Code Status Discussion: Reviewed Preferences Care Teams Sewing Machine Mechanic Relationship Specialty Start Date End Date Cesar Mccollum MD [address] [place] [address] PCP - General Family Practice 03/04/20 Nicola Mcgarry MD [address] [place] [address] Surgery - Urology 03/13/20 Mireya Tan MD [address] [place] [phone] Hematology - Pathology 03/13/20 [facility] [address] [place] [address] 09/29/23
--- OUTSIDE RECORDS SUMMARY | 2023-09-30 12:48 | XMS_ITS | Encounter Summary ---
Author Organization [facility] Address [address] [place] [address] Care Team Providers Care Brick Kiln Worker Name Role Phone Elsewhere, Pcp Primary Care Provider Unavailabl e Encounter Details Date Type Department Care Team (Late st Contact Info) Description 08/13/2023 4:35 PM CDT Ancillary Procedure Department of Radiology in [place], [place] [address] [place] [address] Carlos Alberto Henson M.D. [address] [place] [address] Social History Tobacco Use Types Packs/Day Years Used Date Smoking Tobacco: Never Smokeless Tobacco: Never [facility] Utilities Answer Date Recorded In the past 12 months has [facility] [employer]), gas, oil, or water [facility] threatened to shut off services in your [...] your living situation today? I have a [facility] place to live 08/13/2023 Sex and Gender Information Value Date Recorded Sex Assigned at Not on file Gender Identity Not on file Sexual Orientation Not on file documented as of this encounter Plan of Treatment Upcoming Encounters Date Type Department Care Team (Late st Contact Info) Description 10/14/2023 1:00 PM CDT Procedure visit Department of Urology in [place], [place] [address] [place] [address] Paula Hernandez M.D. [address] [place] [address] documented as of this encounter Procedures Procedure [...] on filedocumented in this encounter Care Teams Brick Kiln Worker Relationship Specialty Start Date End Date Elsewhere, Pcp PCP - General Internal Medicine 08/13/23 documented as of this encounter
--- OUTSIDE RECORDS SUMMARY | 2023-09-30 12:48 | XMS_ITS | Encounter Summary ---
Author Organization [facility] Address [address] [place] [address] Care Team Providers Care Weather Stripper Name Role Phone Elsewhere, Pcp Primary Care Provider Unavailabl e Encounter Details Date Type Department Care Team (Late st Contact Info) Description 08/15/2023 7:55 AM CDT - 08/15/2023 11:23 AM CDT Surgery RST ROMB MAIN OR [address] [place] [address] Boubacar Brock M.D. [address] [place] [phone] Palliative EXPLORATORY LAPAROTOMY, CYSTOTOMY CLOSURE, RIGHT URETERAL STENT EXCHANGE Social History Tobacco Use Types Packs/Day Years Used Date Smoking Tobacco: Never Smokeless Tobacco: Never [facility] Utilities Answer Date Recorded In the [...] AM CDT DISCHARGE SUMMARY BRIEF OVERVIEW Hospital: [facility] Discharge Provider: Boubacar Brock M.D. [...] M.D.Wen, Lexiaochuan, M.D.Premo, Hayley, M.D.Botkin, Hannah, M.D. [facility] ROMB OR DISCHARGE DISPOSITION Home or Self Care [1] ACTIVE ISSUES REQUIRING FOLLOW UP OUTPATIENT FOLLOW UP Scheduled Appointments 08/26/2023 1:00 PM KESHIA VERAS [facility] Radiology For appointment details refer to [...] he felt completely obstructed and presented to [facility] Attempted Tabares insertion but bladder irrigation was unsuccessful on multiple attempts. Hung 1U pRBC's. Given some volume and transferred to [facility] ICU ICU Course Urology consulted and [...] CONSULT TO NUTRITION SUPPORT IP CONSULT TO MAINFRAME APPLICATIONS DEVELOPER WOUND CARE CONDITION AT DISCHARGE stable Discharge [...] he felt completely obstructed and presented to [facility]. [facility] Attempted Tabares insertion but bladder irrigation was unsuccessful on multiple attempts. Hung 1U pRBC's. Given some volume and transferred to [facility] ICU ICU Course Urology consulted and [...] switched out to solifenacin inpatient Carlos Alberto Henson, M.D. PGY-1 CCM 3 documented in this encounter Discharge Instructions * Discharge Instructions* Yasmine Loco - 08/22/2023 1:11 PM CDT You were discharged from the [facility] Urology Surgery - Chief A - Blue Service. Please identify this service name if you call with questions after hospitalization. * Attachments The following attachments cannot be sent through Care Everywhere. * Bacitracin (On the skin) (Tamazight) * Cefdinir (By mouth) (Tamazight) * Trospium (By mouth) (Tamazight) documented in this encounter Medications at Time [...] another provider. * Chary Diamond M.A., O.T., [facility] - 08/26/2023 10:21 AM CDT Occupational Therapy [facility] Inpatient Treatment SUBJECTIVE Patient's Name: Kalen Vega Referring/Attending Provider: Boubacar Brock M.D. Reason for Referral: Occupational Therapy Evaluation and Treatment History of Present Illness: Kalen Vega is a 83 y.o. male who was admitted to [facility] in [place] on 08/13/2023 for Hematuria [R31.9]. Precautions Other Precautions: Abdominal, fall precautions, monitor tachycardia and hypertension Pain Assessment: Pain not reported during session. Subjective Comments: Agreeable to therapy session. Team Communication: The patient's status was discussed and coordination of care occurred with RN, Family/Caregiver, nurse tech Family/Caregiver Present: son and [id number] OBJECTIVE Vital Signs: Vitals not formally assessed during session. No concerns during chart review and the patient had nosigns or symptoms consistent with vital changes during therapy session. Outcome Measures: [facility] Inpatient Short Form: Putting on and taking [...] at or below [address] [facility] Inpatient Short Form based on observed patient [...] through pant leg first. - Adaptive Equipment: Venetian Blind Worker TOILETING - Assist Level: Maximal Assist - [...] (Edge of bed) - Assist Level: Modified Lavina - Equipment: bed rail - Therapist Delivery: assessed, instructed, assisted - Adaptive Equipment: leg cullet washer trialed ; however, patient able to move [...] extremity (stiff knee) first. Recommended adaptive equipment: Venetian Blind Worker. Toileting - Patient instructed on accurate positioning [...] maximal exertion Handouts provided: Bathroom Safety Equipment [id number], Techniques to Help You Save Energy [id number] Patient was left in bedside chair with [...] Usama 6C -room 121 ASSESSMENT / PLAN [employer] NURSEstorage manager met with patient and son Kar to inform them of home health care acceptance for PT/OT. Patient's son Kar and [id number] will provide transportation at the time of discharge. PLAN Patient to discharge home with home health care. Home Medical Care - Admitted Since 08/13/2023 Service Provider Selected Services Address Phone Fax Patient Preferred [email or web address] [employer] [facility] [address] [facility] [phone] -- Intelligence Research Specialist: Ghazal NURSING: - Complete documentation in the Discharge Navigator including Nursing Report Info and Facility/NextLevel of Care Info - Call report and arrange for the patient's first visit - Send After Visit Summary and required packet of dismissal information with patient, including advance directive. PRIMARY SERVICE: - Please provide a non-[facility] home health order for: physical therapy and [...] be provided by family--patient's son Kar and [id number]. 3. event host recommended reaching out to family, friends, and neighbors for assistance. 4. event host provided information regarding the dismissal process. Damaris [...] Reviewed with patient #1 Hematuria Please page [facility] ([phone]) or [facility] ([phone]) Nutrition Support Service pager with questions. * Emeterio Buchanan P.T., D.P.T., [facility] - 08/25/2023 9:35 AM CDT Physical Therapy Inpatient Treatment SUBJECTIVE Patient's Name: Kalen Vega Referring/Attending Provider: Boubacar Brock M.D. Reason for Referral: Physical Therapy Evaluate and Treat History of Present Illness: Kalen Vega is a 83 y.o. male who was admitted to [facility] in [place] on 08/13/2023 for Hematuria [R31.9] Precautions Other [...] throughout session; within normal ranges. Outcome Measures: [facility] Inpatient Short Form: AM-[facility] Basic Mobility (V.2) How much help from [...] 3-5 steps with a railing?: A Little AM-[facility] Basic Mobility (V.2) Raw Score: 18 AM-[facility] Basic Mobility (V.2) Standardized Score: 41.05 Interpretation: Based on scoring guidelines using the raw score value: Those going to home had an average score at or above 18 Those going to facility had an average score at or below 17 Clinicians answer the -[facility] Inpatient Short Form based on observed patient activity and/or clinical judgement (ie. patient can be scored without physically performing each activity) Therapeutic Interventions: SIT TO STAND x3: Assistance Level: Supervision static safe house fit with adult there which they usually [place] with a difference educated fully know who [...] 83 y.o. male who was admitted to [facility] in [place] on 08/13/2023 for Hematuria [R31.9]. Precautions Other Precautions: Abdominal, fall precautions, monitor tachycardia and hypertension Pain Assessment: Pain not reported during session. Subjective Comments: Agreeable to therapy session. Team Communication: The patient's status was discussed and coordination of care occurred with RN, PT OBJECTIVE Vital Signs: Vitals monitored throughout session; within normal ranges. Outcome Measures: [facility] Inpatient Short Form: Putting on and taking [...] at or below [address] [facility] Inpatient Short Form based on observed patient [...] including figure four technique. Recommended adaptive equipment: Venetian Blind Worker and Sock Aid. Toileting - Patient instructed [...] and modification tools as needed including leg cullet washer and/or bed adjustments. Bathroom DME: - Educated [...] in place draining clear yellow urine I/O ([id number]): Fifty-five cc serosanguineous from the drain 1 [...] have him follow up with his local credit compliance officer Comorbidities: --history of DVT status post IVC [...] discussed with Dr. Venegas, chief urology resident covered button maker. Pager during business hours: [phone] Pager after hours: [phone] * Emeterio Buchanan P.T., D.P.T., [facility] - 08/24/2023 10:46 AM CDT Physical Therapy Inpatient Treatment SUBJECTIVE Patient's Name: Kalen Vega Referring/Attending Provider: Boubacar Brock M.D. Reason for Referral: Physical Therapy Evaluate and Treat History of Present Illness: Kalen Vega is a 83 y.o. male who was admitted to [facility] in [place] on 08/13/2023 for Hematuria [R31.9] Precautions Other [...] %, and O2flow: Room air Outcome Measures: [facility] Inpatient Short Form: -[facility] Basic Mobility (V.2) How much help from [...] 3-5 steps with a railing?: A Lot -[facility] Basic Mobility (V.2) Raw Score: 17 -[facility] Basic Mobility (V.2) Standardized Score: 39.67 Interpretation: Based on scoring guidelines using the raw score value: Those going to home had an average score at or above 18 Those going to facility had an average score at or below [address] [facility] Inpatient Short Form based on observed patient [...] baseline. PT Goal #2: Patient will perform inj-xz-vnyht transfer with modified independence and least restrictive [...] Buchanan P.T., D.P.T., GCS * Tayler Mckeon, Pharm.D., R.Ph. - 08/24/2023 10:00 AM CDT [...] Total Kcal/day: 1370 based on 84 % [place] Non-standard additives: K 80 mEq Phos 30 [...] magnesium, phosphorus tomorrow. #1 Hematuria Please page [facility] ([phone]) or [facility] ([phone]) Nutrition Support Service pager with questions. 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 Scheduled trospium Home Meds Resumed: Metoprolol, tamsulosin, rosuvastatin Held Home Meds: None Consults: TPN, KESHIA Hernandez M.D. 08/24/2023 Please page the Urology Chief Service with questions or concerns. Patient seen and discussed with Dr. Venegas, chief urology resident covered button maker. Pager during business hours: [phone] Pager after hours: [phone] * Deanne Mike L.G.S.W., M.S.W. - 08/23/2023 11:25 AM CDT SUBJECTIVE Social Work spoke with [facility][1]. They cannot provide penitentiary at this time. They can provide OT/PT [...] sent: [facility] (out of service area) [facility] ASSESSMENT / PLAN ASSESSMENT Patient has robust family support including a son living with him. PLAN Patient desires home health care through [facility]. Social Work will continue to follow to provide support. Social Work will continue to assist with discharge needs. Shorty Sun, M.S.W. 08/23/23 * Jazmine Benítez, RRitesh., C.W.C.N. - 08/23/2023 11:10 AM CDT [facility] Wound RN consulted to assess Kalen [...] stent and hematuria who is transferred from [facility] with 3 days of hematuria and [...] None Unable to Measure Y *Wound Bed Closed;[place];Red Tissue Exposed None Odor None *Exudate Amount [...] 30 minutes > 30 minutes Ongoing management Nursing;Wound/accounts manager Partial head to toe skin assessment completed [...] nursing. They agree to the plan. The [facility] RN will sign-off. Please place a wound care consult for any new concerns. Electronically signed by: Jazmine Benítez R.N., [place] 08/23/23 11:10 AM CDT * Emeterio Buchanan P.T., D.P.T., [facility] - 08/23/2023 11:02 AM CDT Physical Therapy Inpatient Treatment SUBJECTIVE Patient's Name: Kalen Vega Referring/Attending Provider: Boubacar Brock M.D. Reason for Referral: Physical Therapy Evaluate and Treat History of Present Illness: Kalen Vega is a 83 y.o. male who was admitted to [facility] in [place] on 08/13/2023 for Hematuria [R31.9] Precautions Other [...] 3-5 steps with a railing?: A Lot -[facility] Basic Mobility (V.2) Raw Score: 17 [facility] Basic Mobility (V.2) Standardized Score: 39.67 Interpretation: Based on scoring guidelines using the raw score value: Those going to home had an average score at or above 18 Those going to facility had an average score at or below [address] [facility] Inpatient Short Form based on observed patient [...] baseline. PT Goal #2: Patient will perform hpc-yr-hxvdi transfer with modified independence and least restrictive [...] D.P.T., GCS * Demarco Salazar Pharm.D., R.Ph., [facility] - 08/23/2023 10:19 AM CDT Pharmacist Progress [...] Total Kcal/day: 1370 based on 84 % [place] Non-standard additives: MAX chloride Thiamine 100 mg [...] magnesium, phosphorus tomorrow. #1 Hematuria Please page [facility] ([phone]) or [facility] ([phone]) Nutrition Support Service pager with questions. * Ivy Hernandez O.T. - 08/23/2023 8:30 AM CDT Occupational Therapy [facility] Hospital Inpatient Treatment SUBJECTIVE Patient's Name: Kalen Vega Referring/Attending Provider: Boubacar Brock M.D. Reason for Referral: Occupational Therapy Evaluation and Treatment History of Present Illness: Kalen Vega is a 83 y.o. male who was admitted to [facility] in [place] on 08/13/2023 for Hematuria [R31.9]. Precautions Other Precautions: Abdominal, fall precautions, monitor tachycardia and hypertension Pain Assessment: Pain not reported during session. Subjective Comments: Agreeable to therapy session. Team Communication: The patient's status was discussed and coordination of care occurred with RN, PT OBJECTIVE Vital Signs: Vitals monitored throughout session; within normal ranges. Outcome Measures: [facility] Inpatient Short Form: Putting on and taking [...] at or below [address] 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 [facility] Summary: Diet: NPO, TPN Activity: Ad [...] discussed with Dr. Venegas, chief urology resident covered button maker. Pager during business hours: [phone] Pager after hours: [phone] * Chary Diamond M.A., O.T., BCP - [...] [facility]. Social Work sent referral. OBJECTIVE Patient is anticipated to remain at [facility] for 3-5 days. Referrals sent: [facility] ASSESSMENT / PLAN ASSESSMENT Patient has robust family support including a son living with him. PLAN Patient desires home health care through [facility]. Social Work will continue to [...] 83 y.o. male who was admitted to [facility] in [place] on 08/13/2023 for Hematuria [R31.9] Precautions Other [...] 3-5 steps with a railing?: A Lot AM-[facility] Basic Mobility (V.2) Raw Score: 17 -[facility] Basic Mobility (V.2) Standardized Score: 39.67 Interpretation: Based on scoring guidelines using the raw score value: Those going to home had an average score at or above 18 Those going to facility had an average score at or below 17 Clinicians answer the -[facility] Inpatient Short Form based on observed patient [...] baseline. PT Goal #2: Patient will perform jzm-gj-hcidf transfer with modified independence and least restrictive [...] Total Kcal/day: 1370 based on 84 % [place] Non-standard additives: MAX chloride Thiamine 100 mg [...] place draining light smith colored urine I/O ([id number]): CBI on slow drip 75 cc serosanguineous [...] 2.5 mg BID eliquis initiated 08/15 per [facility] med curbside recs --transition from [...] have him follow up with his local credit compliance officer Comorbidities: --history of DVT status post IVC [...] discussed with Dr. Venegas, chief urology resident covered button maker. Pager during business hours: [phone] Pager after hours: [phone] * Qamar Jim, Pharm.D., R.Ph. - 08/21/2023 [...] place draining clear smith colored urine I/O ([id number]): 1800 cc urine output 75 cc serosanguineous [...] clear smith colored urine -incision closed with rayshwan given history of radiation -NG tube was [...] have him follow up with his local credit compliance officer Comorbidities: --history of DVT status post IVC [...] discussed with Dr. Venegas, chief urology resident covered button maker. Pager during business hours: [phone] Pager after hours: [phone] * Lizette Harvey M.D. - 08/20/2023 8:08 [...] draining clear thin merlot colored urine I/O ([id number]): 240 cc p.o. intake 760 cc urine [...] 2.5 mg BID eliquis initiated 08/15 per [facility] med curbside recs --transition from [...] have him follow up with his local credit compliance officer Comorbidities: --history of DVT status post IVC [...] rosuvastatin Held Home Meds: None Consults: TPN Jose Roberto Sepulveda.D. 08/20/2023 Please page the Urology Chief Service with questions or concerns. Pager during business hours: [phone] Pager after hours: [phone] * Qamar Jim, PharmJonahD., R.Ph. - 08/20/2023 [...] aPTT guidance document in [employer]. Qamar Jim, PharmPerla., R.Ph. * Lisa Seaman, O.T., [facility] - 08/19/2023 2:26 PM CDT Occupational Therapy [facility] Inpatient Treatment SUBJECTIVE Patient's Name: Kalen Vega Referring/Attending Provider: Boubacar Brock M.D. Reason for Referral: Occupational Therapy Evaluation and Treatment History of Present Illness: Kalen Vega is a 83 y.o. male who was admitted to [facility] in [place] on 08/13/2023 for Hematuria [R31.9]. Precautions Other Precautions: Abdominal, fall precautions, monitor tachycardia and hypertension Pain Assessment: Pain not reported during session. Subjective Comments: Patient greeted in chair and agreeable to therapy session. Team Communication: The patient's status was discussed and coordination of care occurred with RN OBJECTIVE Vital Signs: Vitals monitored throughout session; within normal ranges. Outcome Measures: [facility] Inpatient Short Form: Putting on and taking [...] at or below [address] [facility] Inpatient Short Form based on observed patient [...] about patient's nutritional care please contact pager [phone] on weekdays or [phone] on weekends/holidays. NUTRITION ASSESSMENT: Mr. Vega is [...] care everywhere) ESTIMATED NEEDS: Total Calorie Needs: 7512-3353 calories/day Method to Estimate Energy Needs: kcal/kg [...] 83 y.o. male who was admitted to [facility] in [place] on 08/13/2023 for Hematuria [R31.9] Precautions Other [...] mmHg O2: 96% Room air Outcome Measures: [facility] Inpatient Short Form: -[facility] Basic Mobility (V.2) How much help from [...] 3-5 steps with a railing?: A Little -[facility] Basic Mobility (V.2) Raw Score: 18 -[facility] Basic Mobility (V.2) Standardized Score: 41.05 Interpretation: Based on scoring guidelines using the raw score value: Those going to home had an average score at or above 18 Those going to facility had an average score at or below [address] [facility] Inpatient Short Form based on observed patient [...] Ongoing PT Goal #2: Patient will perform urx-fz-wojnx transfer with modified independence and least restrictive [...] aPTT guidance document in [employer]. Marie Cassidy, PharmJonahD., R.Ph. Addendum at 14:08: aPTT Results (Past [...] in place draining clear pink urine I/O ([id number]): 370 p.o. intake 1 L urine output [...] 2.5 mg BID eliquis initiated 08/15 per [facility] med curbside recs --transition from [...] have him follow up with his local credit compliance officer Comorbidities: --history of DVT status post IVC [...] questions or concerns. Pager during business hours: [phone] Pager after hours: [phone] * Lisa Seaman, O.TJonah, [facility] - 08/18/2023 11:15 AM CDT Occupational Therapy [facility] Inpatient Treatment SUBJECTIVE Patient's Name: Kalen Vega Referring/Attending Provider: Boubacar Brock M.D. Reason for Referral: Occupational Therapy Evaluation and Treatment History of Present Illness: Kalen Vega is a 83 y.o. male who was admitted to [facility] in [place] on 08/13/2023 for Hematuria [R31.9]. Precautions Other [...] pressure: 168/97 - nurse notified Outcome Measures: [facility] Inpatient Short Form: Putting on and taking [...] at or below [address] [facility] Inpatient Short Form based on observed patient [...] doffing over it last. Recommended adaptive equipment: Venetian Blind Worker and Sock Aid. Patient was left in bedside chair, with nursing/BEAN SPROUT GROWER at end of session with call light [...] min Total Treatment Time (min): 26 min Tara Madden.Cooper, JODY * Scott Pina P.T., D.P.T. - 08/18/2023 8:18 AM CDT Physical Therapy Inpatient Treatment SUBJECTIVE Patient's Name: Kalen Vega Referring/Attending Provider: Boubacar Brock M.D. Reason for Referral: Physical Therapy Evaluate and Treat History of Present Illness: Kalen Vega is a 83 y.o. male who was admitted to [facility] in [place] on 08/13/2023 for Hematuria [R31.9] Precautions Other [...] vital signs with primary service. Outcome Measures: AM-[facility] Inpatient Short Form: AM-[facility] Basic Mobility (V.2) [...] at or below [address] [facility] Inpatient Short Form based on observed patient [...] following coordination of care occurred with the regional sales manager/Caregiver Present: No Patient was left in [...] Progressing PT Goal #2: Patient will perform [id number]-[id number] transfer with modified independence and least restrictive [...] Scott Pina P.T., D.P.T. * Aziza Cortez, Pharm.D., R.Ph. - 08/18/2023 7:59 AM CDT [...] in place draining clear pink urine I/O ([id number]): 1.2 L p.o. intake 1 L urine [...] 2.5 mg BID eliquis initiated 08/[facility] med curbside recs --transition from [...] diet later today follow up vascular medicine [facility] Summary: Diet: currently limited clears Activity: Ad kong DVT PPX: heparin drip GI PPX: Pantoprazole Bowel Regimen:N/A IVF: none Abx/Microbiology: Ceftriaxone Pain Control: Tylenol, oxycodone 08/18. Scheduled trospium Home Meds Resumed: Metoprolol, tamsulosin, rosuvastatin Held Home Meds: None Consults: None Paula Hernandez M.D. 08/18/2023 6:02 AM CDT Please page the Urology Chief Service with questions or concerns. Pager during business hours: [phone] Pager after hours: [phone] * Tayler Greenwood M.D., M.Ed. - 08/17/2023 [...] the patient follow up with his primary credit compliance officer at discharge we will which we will [...] Ringer's Lactated Ringer's * Lisa Seaman O.T., [facility] - 08/17/2023 10:47 AM CDT Occupational Therapy [facility] Inpatient Treatment SUBJECTIVE Patient's Name: Kalen Vega Referring/Attending Provider: Boubacar Brock M.D. Reason for Referral: Occupational Therapy Evaluation and Treatment History of Present Illness: Kalen Vega is a 83 y.o. male who was admitted to [facility] in [place] on 08/13/2023 for Hematuria [R31.9]. Precautions Other [...] at or below 17 Clinicians answer the AM-[facility] Inpatient Short Form based on observed patient [...] in place draining clear pink urine I/O ([id number]): NG tube 200 cc Two hundred sixty-five [...] held since 08/11) -[facility] regarding ongoing anticoagulation/antiplatelet. Theyfelt he no [...] questions or concerns. Pager during business hours: [phone] Pager after hours: [phone] * Audi De Luna P.T., D.P.T. - [...] in place draining clear pink urine I/O ([id number]): NG tube 200 cc Two hundred sixty-five [...] questions or concerns. Pager during business hours: [phone] Pager after hours: [phone] * Paula Hernandez M.D. - 08/15/2023 9:09 AM CDT PROGRESS NOTE: No events. AFVSS. Pain controlled. No flatus. No further emesis overnight. Abdomen more distended than yesterday but remained soft, tender to deep palpation only, no rebound. Twenty-four Citizen [place] Alcock three-way catheter remains off CBI, draining [...] risks associated with surgery and anesthesia including HI, stroke, and VTE were also discussed. Finally, [...] above was discussed with Dr. Brock, urology it web development consultant on-call who is in agreement [...] Family to bring his home enzalutamide from [place] Irvin Franco Pharm.D., R.Ph. * Jakob De Paz M.D. - 08/14/2023 11:34 AM CDT PROGRESS NOTE: No events. AFVSS. Pain controlled. No flatus. Nauseous and had 2 episodes of emesis. Abdomen more distended than yesterday but remained soft, tender to deep palpation only, no rebound. Twenty-four Citizen [place] Alcock three-way catheter remains off CBI, draining [...] above was discussed with Dr. Brock, urology it web development consultant on-call who is in agreement [...] Patient discussed with Dr. Sylvester. Page CCM3 [id number] Carlos Alberto Henson M.D. PGY-1 CCM 3 [...] asked we place a 24 Citizen [place] 3-way urinary catheter pending evaluation. We will [...] stent and hematuria who is transferred from [facility] ED with 3 days of [...] him to present to local hospital in [place]. OSH Course: His hemoglobin was in the [...] Insecurity: No Food Insecurity (02/16/2022) Received from [facility], [facility] Food Insecurity Worried About Running Out of Food in the Last Year: 1 Transportation Needs: No Transportation Needs (02/16/2022) Received from [facility], [facility] Transportation Needs Lack of Transportation (Medical): 1 Housing Stability: Low Risk (02/16/2022) Received from [facility], [facility] Housing Stability Unable to Pay [...] Dr. Sylvester and Dr. Rodriguez. Page CCM3 [id number] Carlos Alberto Henson M.D. PGY-1 CCM 3 [...] As expected PRIMARY PROCEDURALIST FAY Cerna MD [phone] ASSISTANTS none COMPLICATIONS None. DRAINS None. IMPLANTS [...] peripheral vein targets. Ultrasound used for assessment: [employer] Fit Provider contacted (include name): Uro Surg Time contacted: 2019 Recommendation: Referral to IR for placement of chest PICC line documented in this encounter Consult Notes * Jennifer Milladr M.D. - 08/22/2023 10:39 AM CDT SUBJECTIVE [...] STENT EXCHANGE; Surgeon: Boubacar Brock M.D.; Location: [facility] ROMB OR FAMILY HISTORY No [...] 14 -- AST U/L 25 -- Radiology: @[email or web address]@ Swallow Assessment: No data to display ASSESSMENT / PLAN #1 Hematuria ASSESSMENT Currently we are asked to visit with Mr. Vega for consideration of parenteral nutrition. Nutrition Needs: Height: 180 cm Admission Weight: 91.2 kg (08/13/2023) Current Weight: 90.2 kg BMI (Calculated): 27.8 kg/m?? Total Calorie Needs: 6915-3850 calories/day Method to Estimate Energy Needs: [place] ( ) Weight Used for Equation Calculations: [...] on electrolytes Please call NSS pager at [phone] at [facility] or [phone] at [facility] with any additional questions. * [...] values in this interval not displayed. Radiology: @[email or web address]@ Swallow Assessment: No data to display ASSESSMENT / PLAN #1 Hematuria ASSESSMENT Currently we are asked to visit with Mr. Vega for consideration of parenteral nutrition. Nutrition Needs: Height: 180 cm Admission Weight: 91.2 kg (08/13/2023) Current Weight: 90.2 kg BMI (Calculated): 27.8 kg/m?? Total Calorie Needs: 1533-9567 calories/day Method to Estimate Energy Needs: kcal/kg [...] on electrolytes Please call NSS pager at [phone] at [facility] or [phone] at [facility] with any additional questions. BILLING/CODING [...] stent along with other stents and apparently credit compliance officer in the past I recommended indefinite dual [...] in the history of present illness. [facility] OBJECTIVE Current Facility-Administered Medications: acetaminophen tablet [...] infusion, 13 Units/kg/hr (Dosing Weight), intravenous, Continuous, Aizza Cortez, PharmDayday, R.Ph., Last Rate: 11.9 mL/hr at 08/18/23 0806, 13Units/kg/hr at 08/18/23 08 Lactated Ringer's, 20 mL/hr, intravenous, Continuous, Frieda Garner APRN, NET SOFTWARE ENGINEER, Last Rate: 20 mL/hr at 08/15/23 1459, 20 mL/hr at 08/15/23 145 lidocaine 5 % 1 patch (LIDODERM), 1 [...] but he can discuss this with his credit compliance officer at home. We need to balance transfusion needs for continued bleedingand risk of recurrent HI if not on Plavix-coronary stents were 6 [...] 83 y.o. male who was admitted to [facility] in [place] on 08/13/2023 for Hematuria [R31.9]. Relevant Medical History: Kalen Vega is a 83 y.o. male who was admitted to 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 [...] 3-5 steps with a railing?: A Lot -[facility] Basic Mobility (V.2) Raw Score: 17 -[facility] Basic Mobility (V.2) Standardized Score: 39.67 Interpretation: Based on scoring guidelines using the raw score value: Those going to home had an average score at or above 18 Those going to facility had an average score at or below [address] [facility] Inpatient Short Form based on observed patient [...] following coordination of care occurred with the regional sales manager/Caregiver Present: SonFavio Patient was left in bedside [...] 83 y.o. male who was admitted to [facility] in [place] on 08/13/2023 for Hematuria with cystotomy and [...] Min assist for mobility. Required assist for [id number] for force generation and is generally standby [...] Ongoing PT Goal #2: Patient will perform oos-aa-[id number] transfer with modified independence and least restrictive [...] min Total Treatment Time (min): 40 min Matthieu Reynoso, SPT Associated attestation - Fidencio Caban P.T., D.P.T. [...] 83 y.o. male who was admitted to [facility] in [place] on 08/13/2023 for Hematuria [R31.9]. Relevant Medical [...] with RN, PT Family/Caregiver Present: Son and kctktsho-rp-txq. Home Living and Equipment: Lives with: Spouse/Significant [...] walker, Single point cane Adaptive Equipment Owned: Venetian Blind Worker, Long Handled Shoe Horn Other DME Owned: Regular flat bed Prior Level of Function and Mobility: Basic Activities of Daily Living: Independent Instrumental Activities of Daily Living: Required Assistance: Laundry son assists with laundry and cooking Functional Mobility: Independent Driving: Yes Occupational Role: Retired Leisure Interests: watch movies, plays Boomrat train, meets friends for breakfast. Patient/Caregiver Goals: [...] Wears glasses all the time Outcome Measures: [facility] Inpatient Short Form: Putting on and taking [...] at or below [address] [facility] Inpatient Short Form based on observed patient [...] all are a great support. 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 Patient expressed understanding and was agreeable [...] in conversation with his family when social and human services assistant entered the room. He was engaged [...] approximately 3:00 a.m. a 22 Citizen [place] three-way catheter was placed and CBI wasinitiated. Unfortunately he clotted off the catheter multiple times despite manual irrigations, started to develop hypotension and tachycardia and [facility] He relays the [...] Extremities: No edema : 22 Citizen [place] three-way Tabares catheter draining a minimal amount [...] Given his non draining 22 [place] three-way catheter the Urology techs and I subsequently exchanged this for a 24 [place] three-way Alcock in the usual sterile fashion. [...] to follow [place] [phone] with questions or concerns Sixto Cain M.D. [...] peripheral vein targets. Ultrasound used for assessment: Viewdle VenCloudwords Fit Provider contacted (include name): Uro Surg [...] CDT Patient Transfer Note Patient transferred to: [facility] Room: [facility] Accompanied by: JAMEL Garcia Report called? YES [...] signs? YES * Sixto Teague R.R.T., L.R.T., GLASS TECHNICIAN/INSTALLER-[facility] - 08/14/2023 7:00 AM CDT Patient is [...] the last 24hours. Sixto Teague R.R.T., L.R.T., GLASS TECHNICIAN/INSTALLER-[facility] 08/14/23 7:00 AM CDT Electronically signed by Sixto Teague R.R.T., L.R.T., GLASS TECHNICIAN/INSTALLER-[facility] at 08/14/2023 7:02 AM CDT * Radha [...] Bladder Spontaneous Post-op Diagnosis Rupture Bladder Spontaneous Cat Tender A first aid instructor actively participated and [...] flexed position. His existing 24 [place] three-way Tabares catheter was noted to be [...] for additional coverage. A 24 [place] three-way catheter was placed with 15 cc in the balloon. This irrigated to light clear pink. A 15 Citizen [place] YARELI drain wasplaced into the pelvis exiting left lower quadrant. The fascia was closed with interrupted and piydbw-af-ibyyd 0 PDS. Fat was approximated using 3-0 [...] RN, CPN, CCDS, CCS, CRC Clinical Documentation [employer] Light Query created by: ELMER Barker, RN, CPN, [...] stent and hematuria who is transferred from [facility] ED with 3 days of hematuria & [...] RN, CPN, CCDS, CCS, CRC Clinical Documentation [employer] [address] Light Query created by: ELMER Barker, RN, CPN, [...] he felt completely obstructed and presented to [facility]. [facility] Course Attempted Tabares insertion but bladder irrigation was unsuccessful on multiple attempts. Hung 1U pRBC's. Given some volume and transferred to [facility] ICU ICU Course Urology consulted and [...] CDT Procedure visit Department of Urology in [place], [place] [address] [place] [phone] Paula Hernandez M.D. [address] [place] [address] Pending Results Name Type Priority Associated Diagnoses [...] Blood Cells : (08/26/2023 11:00 AM CDT) Narrative Authorizing Provider Result Abdifatah Hernandez M.D. BLOOD TRANSFUSION OR DERABLES * Transfuse Red Blood Cells : , 1 Units (08/26/2023 11:00 AM CDT) Narrative Authorizing Provider Result Abdifatah Hernandez M.D. BLOOD TRANSFUSION OR DERABLES * Type and Screen (with Reflex Antibody ID) (08/26/2023 6:50 AM CDT) Pathologist [facility] ABORh O Pos Not applicable 08/26/2023 7:16 AM CDT STRM Antibody Screen Negative Negative 08/26/2023 7:29 AM CDT STRM Type & Screen Expiration 08/29/2023 23:59 08/26/2023 7:16 AM CDT STRM Testing Location [place] DEFAULT 08/26/2023 6:57 AM CDT STRM Blood (Blood, Venous) 08/26/2023 6:50 AM CDT 08/26/2023 6:57 AM CDT Narrative Authorizing Provider Result Abdifatah Hernandez M.D. LAB BLOOD BANK TEST ORDERABLES [facility] [address] [place] [address], [facility] STRFormerly [facility] [address] [place] [address] * (ABNORMAL) CBC without Differential (08/26/2023 3:20 [...] CDT Corin Ring M.D. LAB BLOOD ADD-ON [facility] [address] [place] [address], [facility] [address] [place] [address] * Magnesium (08/26/2023 3:20 AM CDT) Magnesium, S 2.1 1.7 - 2.3 mg/dL 08/26/2023 4:04 AM CDT DTL Blood (Blood, Venous) 08/26/2023 3:20 AM CDT 08/26/2023 3:50 AM CDT Boubacar Brock M.D. LAB BLOOD ADD-ON [facility] [address] [place] [address], [facility] DTL [facility] [address] [place] [address] * (ABNORMAL) Renal Function Panel (08/26/2023 3:20 [...] CDT Boubacar Brock M.D. LAB BLOOD ADD-ON [facility] [address] [place] [address], [facility] [address] [place] [address] * Heparin Anti-Xa Assay (08/26/2023 3:20 AM CDT) [facility] Heparin Anti-Xa, P 0.26 IU/mL 2023 [...] Hoyt M.D. LAB BLOOD NON ADD -ON [facility] [address] [place] [address], [facility] [address] [place] [address] * (ABNORMAL) CBC without Differential (08/25/2023 3:24 AM CDT) [facility] Hemoglobin 8.3(L) 13.2 - 16.6 g/dL [...] CDT Corin Ring M.D. LAB BLOOD ADD-ON [facility] [address] [place] [address], [facility] [address] [place] [address] * (ABNORMAL) Renal Function Panel (08/25/2023 3:24 AM CDT) Pathologist [facility] Potassium, S 4.1 3.6 - 5.2 [...] Organization Address [facility]/ZIP Co de Phone Number [facility] [address] [place] [address] * Magnesium (08/25/2023 3:24 AM CDT) Magnesium, S 2.2 1.7 - 2.3 mg/dL 08/25/2023 4:36 AM CDT DTL Blood (Blood, Venous) 08/25/2023 3:24 AM CDT 08/25/2023 4:19 AM CDT Boubacar Brock M.D. LAB BLOOD ADD-ON Performing Organization Address [facility] Co de Phone Number [facility] [address] [place] [address], [place] [address] * Heparin Anti-Xa Assay (08/25/2023 3:24 AM [...] LAB BLOOD NON ADD-ON Performing Organization Address City/[facility]/ZIP Co de Phone Number [facility] [address] [place] [address], [facility] DTL [facility] [address] [place] [address] * (ABNORMAL) CBC without Differential (08/24/2023 5:28 [...] M.D. LAB BLOOD ADD-ON Performing Organization Address City/[facility]/ZIP Co de Phone Number [facility] [address] [place], [place] [address] [address] [place] [address] * Magnesium (08/24/2023 5:28 AM CDT) Magnesium, S 2.3 1.7 - 2.3 mg/dL 08/24/2023 6:19 AM CDT DTL Blood (Blood, Venous) 08/24/2023 5:28 AM CDT 08/24/2023 6:00 AM CDT Boubacar Brock M.D. LAB BLOOD ADD-ON [facility] [address] [address] * (ABNORMAL) Renal Function Panel (08/24/2023 5:28 [...] Organization Address [facility]/ZIP Co de Phone Number [facility] [address] [place] [address] * Heparin Anti-Xa Assay (08/24/2023 5:28 AM [...] LAB BLOOD NON ADD-ON Performing Organization Address City/[facility]/ZIP Co de Phone Number [facility] [address] [place], [place] [phone] [place] [address] [address] [facility] [address] [place] [address] * (ABNORMAL) Potassium (08/23/2023 9:58 PM CDT) Pathologist [facility] Potassium, S 3.5(L) 3.6 - 5.2 mmol/L 08/23/2023 10:45 PM CDT DT Blood (Blood, Venous) 08/23/2023 9:58 PM CDT 08/23/2023 10:30 PM CDT Boubacar Brock M.D. LAB BLOOD ADD-ON [facility] [address] [place], [place] [phone] [place] [address] 200 [place] [address] * (ABNORMAL) Phosphorus Inorganic (08/23/2023 9:58 PM CDT) [facility] Phosphorus (Inorganic), S 2.1(L) 2.5 - 4.5 mg/dL 08/23/2023 10:45 PM CDT DT Blood (Blood, Venous) 08/23/2023 9:58 PM CDT 08/23/2023 10:30 PM CDT Paula Hernandez M.D. LAB BLOOD ADD-ON [facility] [address] [place], [place] [phone] [place] [address] 200 [place] [address] * Heparin Anti-Xa Assay (08/23/2023 11:37 AM [...] LAB BLOOD NON ADD-ON Performing Organization Address [facility] Co de Phone Number [facility] [address] [place] [address], [facility] [address] [place] [address] * (ABNORMAL) CBC without Differential (08/23/2023 3:42 [...] M.D. LAB BLOOD ADD-ON Performing Organization Address City/[facility] Co de Phone Number [facility] [address] [place], [place] [phone] [place] [address] 200 [place] [address] * Triglycerides (08/23/2023 3:42 AM CDT) Triglycerides [...] Organization Address [facility] Co de Phone Number [facility] [address] [place], [place] [phone] [place] [address] [address] [place] [address] * Magnesium (08/23/2023 3:42 AM CDT) Pathologist [facility] Magnesium, S 2.2 1.7 - 2.3 mg/dL 08/23/2023 4:50 AM CDT DTL Blood (Blood, Venous) 08/23/2023 3:42 AM CDT 08/23/2023 4:19 AM CDT Boubacar Brock M.D. LAB BLOOD ADD-ON Performing Organization Address City/[facility]/ZIP Co de Phone Number [facility] [address] [place] [address] * (ABNORMAL) Renal Function Panel (08/23/2023 3:42 AM CDT) Pathologist [facility] Potassium, S 3.1(L) 3.6 - [...] CDT Boubacar Brock M.D. LAB BLOOD ADD-ON [facility] [address] [place] [address], [facility] [address] [place] [address] * Heparin Anti-Xa Assay (08/23/2023 3:41 AM CDT) Heparin Anti-Xa, P 0.51 IU/mL 05/14/ 2024 4:26 AM CDT DTL Comment: [facility]FH therapeutic [...] AM CDT 08/23/2023 4:00 AM CDT Boubacar Brcok M.D. LAB BLOOD NON ADD-ON Performing Organization Address City/[facility]/ZIP Co de Phone Number [facility] [address] [place] [address], [facility] DTL [facility] [address] [place] [address] * Glucose, POCT (08/22/2023 11:38 PM CDT) [facility] Glucose, POCT, B 117 70 - 140 mg/dL 08/23/2023 1:06 AM CDT PCLX Site Capillary 08/23/2023 1:06 AM CDT PCLX Last Intake NPO 08/23/2023 1:06 AM CDT PCLX Blood 08/22/2023 11:3 8 PM CDT 08/23/2023 1:06 AM CDT Unknown Provider LAB POCT ORDERABLES- MANUAL POC [facility] [address] [place] [address], [facility] PCLX [facility] POC [address] [place] [address] * Heparin Anti-Xa Assay (08/22/2023 10:14 PM CDT) [facility] Heparin Anti-Xa, P 0.50 IU/mL 2023 [...] Boubacar Brock M.D. LAB BLOOD NON ADD-ON [facility] [address] DTL [facility] [address] [place] [address] * CT Abdomen Pelvis without IV Contrast [...] kidney, and adrenal glands. Pancreatic atrophy. Right ARTRUO. Sacral sclerosis. Postsurgical changes of the anterior [...] colon likelyrepresenting mild proctocolitis. Paula Hernandez M.D. [facility] CT PROCEDURES * Heparin Anti-Xa Assay (08/22/2023 [...] Boubacar Brock M.D. LAB BLOOD NON ADD-ON [address] [place] [address] * Creatinine, Body Fluid (08/22/2023 3:30 PM [...] transport rates. All other fluids refer to www.[employer].com for further interpretive information. This test has been modified from the brim stitcher's instructions. Its performance characteristics were determined by [facility] in a manner consistent with CLIA requirements. This test has not been cleared or approved by the U.S. Food and Drug Administration. Fluid Type, Creatinine Fluid, Abdomen 08/22/2023 3:52 PM CDT DTL Fluid (Abdomen) 08/22/2023 3 :30 PM CDT 08/22/2023 6:36 PM CDT Corin Ring M.D. LAB BODY FLUIDS AND STOOLS ORDERABLES [facility] [address] [place] [address], [place] DTL [facility] [address] [place] [address] * Transfuse Red Blood Cells : (08/22/2023 [...] right IJ vein single-lumen 4 [place] tunneled PowerPICC ready for immediate use. NR [...] the IVC and a 4 Citizen [place] dilator advanced over the wire and attached to a one-way stopcock. A suitable exit site in the right anterior chest was anesthetized and a small incision made. A 4 Citizen [place] single-lumen PowerPICC was then tunneled from the [...] the IVC and a 4 [place] dilator advanced over the wire andattached to a one-way stopcock. A suitable exit site in the right anteriorchest was anesthetized and a small incision made. A 4 Citizen [place] single-lumen PowerPICC was then tunneled fromthe skin [...] right IJ vein single-lumen 4 Citizen [place] tunneled PowerPICCready for immediate use. NR Kimi [...] M.D. LAB BLOOD ADD-ON Performing Organization Address City/[facility] Co de Phone Number [facility] [address] [place] [address], [facility] [address] [place] [address] * Type and Screen (with Reflex Antibody ID) (08/22/2023 2:55 AM CDT) [facility] ABORh O Pos Not applicable 08/22/2023 3:25 AM CDT STRM Antibody Screen Negative Negative 08/22/2023 3:38 AM CDT STRM Type & Screen Expiration 08/25/2023 23:59 08/22/2023 3:25 AM CDT STRM Testing Location Marcio DEFAULT 08/22/2023 3:07 AM CDT STRM Blood (Blood, Venous) 08/22/2023 2:55 AM CDT 08/22/2023 3:07 AM CDT Latisha Whitehead M.D. LAB BLOOD BANK T EST ORDERABLES Performing Organization Address [facility] Co de Phone Number [facility] [address] [place] [address], [facility] STRM [facility] [address] [place] [address] * (ABNORMAL) Comprehensive Metabolic Panel (08/22/2023 2:40 AM CDT) Pathologist [facility] Potassium, S 3.2(L) 3.6 - 5.2 [...] CDT Latisha Whitehead M.D. LAB BLOOD ADD-ON [facility] [address] [place] [address], [facility] DTL [facility] [address] [place] [address] * Heparin Anti-Xa Assay (08/22/2023 2:40 AM CDT) Pathologist [facility] Heparin Anti-Xa, P 0.47 IU/mL 2023 3:28 [...] BLOOD NON AD D-ON Performing Organization Address City/[facility]/ZIP Co de Phone Number [facility] [address] [place] [address], [facility] [address] [place] [address] * (ABNORMAL) APTT (Activated Partial Thromboplastin Time) (08/22/2023 2:40 AM CDT) Pathologist [facility] Activated Partial Thrombopl Time, P 64(H) 25 - 37 sec 08/22/2023 3:12 AM CDT STMA Blood (Blood, Venous) 08/22/2023 2:40 AM CDT 08/22/2023 3:01 AM CDT Latisha Whitehead M.D. LAB BLOOD ADD-ON Performing Organization Address City/[facility]/ZIP Co de Phone Number [facility] [address] [place] [address], [facility] STMA [facility] [address] [place] [address] * Triglycerides (08/21/2023 7:32 AM CDT) Triglycerides [...] LAB BLOOD ADD-O N Performing Organization Address City/[facility]/ZIP Co de Phone Number [facility] [address] [facility] [facility] [address] [place] [address] * Phosphorus Inorganic (08/21/2023 7:32 AM CDT) Phosphorus (Inorganic), S 2.6 2.5 - 4.5 mg/dL 08/21/2023 9:03 AM CDT DT Blood (Blood, Venous) 08/21/2023 7:32 AM CDT 08/21/2023 8:38 AM CDT Lizette Harvey M.D. LAB BLOOD ADD-O N [facility] [address] [place] [address] * Magnesium (08/21/2023 7:32 AM CDT) Magnesium, S 2.3 1.7 - 2.3 mg/dL 08/21/2023 9:03 AM CDT DTL Blood (Blood, Venous) 08/21/2023 7:32 AM CDT 08/21/2023 8:38 AM CDT Lizette Harvey M.D. LAB BLOOD ADD-O N [facility] [address] [place] [address], [facility] DTL [facility] [address] [place] [address] * (ABNORMAL) Basic Metabolic Panel (08/21/2023 7:32 [...] Lizette Harvey M.D. LAB BLOOD ADD-O N [facility] [address] [place] [address], [facility] DTHospital [facility] [address] [place] [address] * (ABNORMAL) CBC without Differential (08/21/2023 7:32 [...] Lizette Harvey M.D. LAB BLOOD ADD-O N [facility] [address] [place] [address], [facility]THospital [facility] [address] [place] [address] * Heparin Anti-Xa Assay (08/21/2023 7:32 AM CDT) Pathologist [facility] Heparin Anti-Xa, P 0.49 IU/mL 2023 8:31 [...] LAB BLOOD NON ADD-ON Performing Organization Address City/[facility]/ZIP Co de Phone Number [facility] [address] [place], [place] [address] [place] [address] * (ABNORMAL) APTT (Activated Partial Thromboplastin Time) (08/21/2023 7:32 AM CDT) [facility] Activated Partial Thrombopl Time, P 49(H) 25 - 37 sec 08/21/2023 8:31 AM CDT DT Blood (Blood, Venous) 08/21/2023 7:32 AM CDT 08/21/2023 8:06 AM CDT Boubacar Brock M.D. LAB BLOOD ADD-ON [facility] [address] [place], [place] [address] [place] [address] 200 [place] [address] * Place peripherally inserted central catheter (PICC) (08/20/2023 8:40 PM CDT) Narrative MMODAL - 08/20/2023 8:40 PM CDT Miko Shah R.N. ? 08/20/2023 ??8:[address] peripherally inserted central catheter (PICC) Performed by: Miko Shah RJonahNJonah Authorized by: Lizette Harvey M.D. ?? Care [...] the atrophic right kidney. Lizette Harvey M.D. [facility] CT PROCEDUR ES * (ABNORMAL) Basic Metabolic Panel (08/20/2023 3:19 AM CDT) [facility] Potassium, S 3.7 3.6 - [...] Organization Address [facility]/ZIP Co de Phone Number [facility] [address] [place] [address], [facility] DTL [facility] [address] [place] [address] * (ABNORMAL) CBC without Differential (08/20/2023 3:19 [...] CDT Paula Hernandez M.D. LAB BLOOD ADD-ON [facility] [address] [place] [address] * (ABNORMAL) APTT (Activated Partial Thromboplastin Time) (08/20/2023 3:19 AM CDT) Pathologist [facility] Activated Partial Thrombopl Time, P 52(H) 25 - 37 sec 08/20/2023 4:33 AM CDT DTL Blood (Blood, Venous) 08/20/2023 3:19 AM CDT 08/20/2023 4:10 AM CDT Boubacar Brock M.D. LAB BLOOD ADD-ON [facility] [address] [place] [address] * (ABNORMAL) APTT (Activated Partial Thromboplastin Time) (08/19/2023 10:57 AM CDT) [facility] Activated Partial Thrombopl Time, P 54(H) 25 - 37 sec 08/19/2023 11:44 AM CDT DT Blood (Blood, Venous) 08/19/2023 10:57 AM CDT 08/19/2023 11:26 AM CDT Boubacar Brock M.D. LAB BLOOD ADD-ON [facility] [address] [place] [address] * (ABNORMAL) APTT (Activated Partial Thromboplastin Time) (08/19/2023 4:51 AM CDT) [facility] Activated Partial Thrombopl Time, P 59(H) 25 - 37 sec 08/19/2023 5:53 AM CDT DTL Blood (Blood, Venous) 08/19/2023 4:51 AM CDT 08/19/2023 5:36 AM CDT Boubacar Brock M.D. LAB BLOOD ADD-ON [facility] [address] [place] [address] * (ABNORMAL) APTT (Activated Partial Thromboplastin Time) (08/18/2023 10:03 PM CDT) [facility] Activated Partial Thrombopl Time, P 63(H) 25 - 37 sec 08/18/2023 10:41 PM CDT DTL Blood (Blood, Venous) 08/18/2023 10:03 PM CDT 08/18/2023 10:19 PM CDT Boubacar Brock M.D. LAB BLOOD ADD-ON Performing Organization Address City/[facility]/ZIP Co de Phone Number [facility] [address] [place] [address] * (ABNORMAL) APTT (Activated Partial Thromboplastin Time) (08/18/2023 2:50 PM CDT) [facility] Activated Partial Thrombopl Time, P 64(H) 25 - 37 sec 08/18/2023 3:25 PM CDT DT Blood (Blood, Venous) 08/18/2023 2:50 PM CDT 08/18/2023 3:07 PM CDT Boubacar Brock M.D. LAB BLOOD ADD-ON [facility] [address] [place] [address] * (ABNORMAL) APTT (Activated Partial Thromboplastin Time) (08/18/2023 6:42 AM CDT) [facility] Activated Partial Thrombopl Time, P 61(H) 25 - 37 sec 08/18/2023 7:28 AM CDT DTL Blood (Blood, Venous) 08/18/2023 6:42 AM CDT 08/18/2023 7:04 AM CDT Boubacar Brock M.D. LAB BLOOD ADD-ON Performing Organization Address City/[facility]/ZIP Co de Phone Number [facility] [address] [place] [address], [facility] [address] [place] [address] * (ABNORMAL) APTT (Activated Partial Thromboplastin Time) (08/17/2023 11:04 PM CDT) Pathologist [facility] Activated Partial Thrombopl Time, P 40(H) 25 - 37 sec 08/17/2023 11:46 PM CDT DTL Blood (Blood, Venous) 08/17/2023 11:04 PM CDT 08/17/2023 11:31 PM CDT Boubacar Brock M.D. LAB BLOOD ADD-ON Performing Organization Address [facility] Co de Phone Number [facility] [address] [place] [address], [address] [address] * US Lower Extremity Veins Bilateral (08/17/2023 [...] and management can be found on the [employer] site. Link [email or web address] Findings discussed with ??Tayler Greenwood, ?? ([id number]) on 08/17/2023 7:11 PM. Procedure Note Jj [...] can be found on theAskMayoExpert site. [email or web address] Findings discussed with Tayler Greenwood MD ([id number]) on 08/17/2023 7:11 PM. IMPRESSION: 1. 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 2. No acute left-sided DVT. Corin Ring M.D. IM US PROCEDURES * APTT (Activated Partial Thromboplastin Time) (08/17/2023 4:56 PM CDT) [facility] Activated Partial Thrombopl Time, P 29 25 - 37 sec 08/17/2023 5:10 PM CDT [facility] Blood (Blood, Venous) 08/17/2023 4:56 PM CDT 08/17/2023 5:00 PM CDT Paula Hernandez M.D. LAB BLOOD ADD-ON [facility] [address] [place] [address], [facility] [address] [place] [address] * ECG 12 Lead (08/16/2023 9:43 PM CDT) Pathologist [facility] Ventricular Rate ECG/Min 134 BPM MUSE DE Interval 136 ms MUSE QRSD Interval 76 ms MUSE QT Interval 298 ms MUSE QTC Interval 445 ms MUSE P Neely 29 degrees MUSE R Neely -6 degrees MUSE T Wave Neely 21 degrees MUSE 08/16/2023 9:43 PM CDT [...] without Differential (08/16/2023 9:40 PM CDT) Pathologist [facility] Hemoglobin 8.8(L) 13.2 - 16.6 g/dL 08/16/2023 [...] CDT Geneva Azar M.D. LAB BLOOD ADD-ON [facility] [address] [place] [address], [facility] DTL [facility] [address] [place] [address] * (ABNORMAL) Basic Metabolic Panel (08/16/2023 9:40 [...] CDT Geneva Azar M.D. LAB BLOOD ADD-ON [facility] [address] [place] [address], [place] DTL [facility] [address] [place] [address] * Transfuse Red Blood Cells : (08/16/2023 12:04 PM CDT) Corin Ring M.D. BLOOD TRANSFUSION OR DERABLES * Transfuse Red Blood Cells : , 1 Units (08/16/2023 12:04 PM CDT) Corin Ring M.D. BLOOD TRANSFUSION OR DERABLES * (ABNORMAL) Basic Metabolic Panel (08/16/2023 3:10 AM CDT) [facility] Potassium, S 4.2 3.6 - 5.2 [...] CDT Paula Hernandez M.D. LAB BLOOD ADD-ON [facility] [address] [place] [address], [facility] [address] [place] [address] * (ABNORMAL) CBC without Differential (08/16/2023 3:10 [...] CDT Paula Hernandez M.D. LAB BLOOD ADD-ON [facility] [address] [place] [address], [facility] [address] [place] [address] * (ABNORMAL) CBC with Differential, Blood (08/15/2023 [...] Carlos Alberto Henson M.D. LAB BLOOD ADD-ON [facility] [address] [place] [address], [place] DTL [facility] [address] [place] [address] [facility] [address] [place] [address] * DX Abdomen 1 View (08/15/2023 1:19 [...] CDT 08/15/2023 12:03 PM CDT Rae Gonzalez [employer], NET SOFTWARE ENGINEER, DNAP LAB BLOO D NON ADD-ON [facility] [address] [place] [address], [facility] [address] [place] [address] * Lactate, B - Intra-op (08/15/2023 11:56 AM CDT) Lactate, B 1.1 0.5 - 2.2 mmol/L 08/15/2023 12:06 PM CDT ST[facility] Blood (Blood, Venous) 08/15/2023 11:56 AM CDT 08/15/2023 12:03 PM CDT Hayde Song M.D. LAB BLOOD NON ADD-O N Performing Organization Address City/[facility]/ZIP Co de Phone Number [facility] [address] [place] [address], [facility] [address] [place] [address] * (ABNORMAL) Glucose, Whole Blood (08/15/2023 11:56 AM CDT) Glucose 144(H) 70 - 140 mg/dL 08/15/2023 12:06 PM CDT [facility] Blood (Blood, Arterial Line) 08/15/2023 11:56 AM CDT 08/15/2023 12:03 PM CDT Hayde Song M.D. LAB BLOOD ADD-ON Performing Organization Address [facility]/ZIP Co de Phone Number [facility] [address] [place] [address], [facility] [address] [place] [address] * Potassium, Blood (08/15/2023 11:56 AM CDT) Potassium, B 4.3 3.6 - 5.2 mmol/L 08/15/2023 12:07 PM CDT [facility] Blood (Blood, Arterial Line) 08/15/2023 11:56 AM CDT 08/15/2023 12:03 PM CDT Hayde Song M.D. LAB BLOOD NON ADD-O N [facility] [address] [place] [address], [facility] [address] [place] [address] * Sodium, B (08/15/2023 11:56 AM CDT) Sodium, B 135 135 - 145 mmol/L 08/15/2023 12:06 PM CDT [facility] Blood (Blood, Arterial Line) 08/15/2023 11:56 AM CDT 08/15/2023 12:03 PM CDT Hayde Song M.D. LAB BLOOD NON ADD-O N Performing Organization Address City/[facility]/ZIP Co de Phone Number [facility] [address] [place] [address] * (ABNORMAL) Calcium, Ionized (08/15/2023 11:56 AM CDT) Calcium, Ionized, B 4.53(L) 4.65 - 5.30 mg/dL 08/15/2023 12:07 PM CDT [facility] Blood (Blood, Arterial Line) 08/15/2023 11:56 AM CDT 08/15/2023 12:03 PM CDT Hayde Song M.D. LAB BLOOD NON ADD-O N Performing Organization Address City/[facility]/ZIP Co de Phone Number [facility] [address] [place], [place] [address] [place] [address] [address] [place] [address] * (ABNORMAL) Blood Gas with Coox, Arterial [...] BLOOD NON ADD-O N Performing Organization Address City/[facility]/ZIP Co de Phone Number [facility] [address] STMA [facility] [address] [place] [address] * [place] Fluoro Less Than 1 Hour [...] CDT 08/15/2023 10:28 AM CDT Rae Gonzalez F[employer], NET SOFTWARE ENGINEER, DNA[employer] LAB BLOO D NON ADD-ON [facility] [address] [place] [address], [facility] [address] [place] [address] * Lactate, B - Intra-op (08/15/2023 10:28 AM CDT) Lactate, B 1.1 0.5 - 2.2 mmol/L 08/15/2023 10:30 AM CDT [facility] Blood (Blood, Venous) 08/15/2023 10:28 AM CDT 08/15/2023 10:28 AM CDT Hayde Song M.D. LAB BLOOD NON ADD-O N Performing Organization Address City/[facility]/ZIP Co de Phone Number [facility] [address] [place] [address], [facility] [address] [place] [address] * Glucose, Whole Blood (08/15/2023 10:28 AM CDT) Glucose 134 70 - 140 mg/dL 08/15/2023 10:30 AM CDT [facility] Blood (Blood, Arterial Line) 08/15/2023 10:28 AM CDT 08/15/2023 10:28 AM CDT Hayde Song M.D. LAB BLOOD ADD-ON [facility] [address] [place] [address], [facility] [address] [place] [address] * Potassium, Blood (08/15/2023 10:28 AM CDT) Potassium, B 4.1 3.6 - 5.2 mmol/L 08/15/2023 10:31 AM CDT [facility] Blood (Blood, Arterial Line) 08/15/2023 10:28 AM CDT 08/15/2023 10:28 AM CDT Hayde Song M.D. LAB BLOOD NON ADD-O N [facility] [address] [place], [place] [address] [place] [address] [address] [place] [address] * Sodium, B (08/15/2023 10:28 AM CDT) Sodium, B 135 135 - 145 mmol/L 08/15/2023 10:30 AM CDT [facility] Blood (Blood, Arterial Line) 08/15/2023 10:28 AM CDT 08/15/2023 10:28 AM CDT Hayde Song M.D. LAB BLOOD NON ADD-O N [facility] [address] [place], [place] [address] [address] [place] [address] * (ABNORMAL) Calcium, Ionized (08/15/2023 10:28 AM CDT) Calcium, Ionized, B 4.25(L) 4.65 - 5.30 mg/dL 08/15/2023 10:31 AM CDT [facility] Blood (Blood, Arterial Line) 08/15/2023 10:28 AM CDT 08/15/2023 10:28 AM CDT Hayde Song M.D. LAB BLOOD NON ADD-O N [facility] [address] [place], [place] [address] [address] [place] [address] * (ABNORMAL) Blood Gas with Coox, Arterial [...] Song M.D. LAB BLOOD NON ADD-O N [facility] [address] [place] [address], [facility] [address] [place] [address] * Bacteria / Yomaira Culture, Blood #2 (08/15/2023 3:33 AM CDT) Pathologist [facility] Bacteria/Leyla da Culture, Blood No growth after 5 days of incubation. 08/20/2023 6:02 AM CDT DTL Blood (Blood, Peripheral Draw) 08/15/2023 3:33 AM CDT 08/15/2023 5:58 AM CDT Comment:Specimen Source Site : Blood Narrative [facility] - 08/20/2023 6:02 AM CDT Received Bactec aerobic and Bactec anaerobic bottles Carlos Alberto Henson M.D. LAB MICROBIOLOGY - G [facility] ORDERABLES [facility] [address] [place] [address], [facility] DTL [facility] [address] [place] [address] * (ABNORMAL) Basic Metabolic Panel (08/15/2023 3:31 AM CDT) Pathologist [facility] Potassium, S 4.0 3.6 - 5.2 [...] M.D. LAB BLOOD ADD-ON Performing Organization Address City/[facility]/[place] [address] * Bacteria / Yomaira Culture, Blood #1 (08/15/2023 3:31 AM CDT) [facility] Bacteria/Leyla da Culture, Blood No growth after 5 days of incubation. 08/20/2023 6:02 AM CDT DTL Blood (Blood, Peripheral Draw) 08/15/2023 3:31 AM CDT 08/15/2023 5:59 AM CDT Comment:Specimen Source Site : Blood Carlos Alberto Henson M.D. LAB MICROBIOLOGY - G ENERAL ORDERABLES Performing Organization Address [facility] Co de Phone Number [facility] [address] [place] [address] * (ABNORMAL) CBC with Differential, Blood (08/15/2023 3:30 AM CDT) [facility] Hemoglobin 9.5(L) 13.2 - 16.6 g/dL [...] Carlos Alberto Henson M.D. LAB BLOOD ADD-ON [facility] [address] [place] [address], [facility] DTL [facility] [address] [place] [address] [facility] [address] [place] [address] * (ABNORMAL) CBC with Differential, Blood (08/14/2023 8:08 PM CDT) [facility] Hemoglobin 9.8(L) 13.2 - 16.6 g/dL [...] Carlos Alberto Henson M.D. LAB BLOOD ADD-ON [facility] [address] [place] [address], [facility] STMA [facility] [address] [place] [address] [facility] [address] [place] [address] * Transfuse Red Blood Cells : , [...] Carlos Alberto Henson M.D. LAB BLOOD ADD-ON [facility] [address] [place] [address], [facility] STMA [facility] [address] [place] [address] [facility] [address] [place] [address] * (ABNORMAL) Basic Metabolic Panel (08/14/2023 3:18 [...] Carlos Alberto Henson M.D. LAB BLOOD ADD-ON [facility] [address] [place] [address], [place] [facility] [address] [place] [address] * Type and Screen (with Reflex Antibody ID) (08/13/2023 7:35 PM CDT) [facility] ABORh O Pos Not applicable 08/13/2023 7:58 PM CDT STRM Antibody Screen Negative Negative 08/13/2023 8:13 PM CDT STRM Type & Screen Expiration 08/16/2023 23:59 08/13/2023 7:58 PM CDT STRM Testing Location Marcio DEFAULT 08/13/2023 7:39 PM CDT STR Blood (Blood, Venous) 08/13/2023 7:35 PM CDT 08/13/2023 7:39 PM CDT Carlos Alberto Henson M.D. LAB BLOOD BANK TEST ORDERABLES [facility] [address] [place] [address], [facility] [address] [place] [address] * (ABNORMAL) Bacteria / Yomaira Culture, Blood #1 (08/13/2023 7:35 PM CDT) [facility] Bacteria/Cand jessica Culture, Blood ESCHERICHIA COLI Growth after 11 Hours (A) 08/16/2023 11:17 AM CDT DT Comment: 3 of 3 Bottles, Susceptibilities performed on another specimen [id number] Blood (Blood, Peripheral Draw) 08/13/2023 7:35 PM CDT 08/13/2023 8:15 PM CDT Comment:Specimen Source Site : Blood Carlos Alberto Henson M.D. LAB MICROBIOLOGY - G ENERAL ORDERABLES [facility] [address] [place] [address], [facility] [address] [place] [address] * ECG 12 Lead (08/13/2023 7:02 PM CDT) Ventricular Rate ECG/Min 128 BPM MUSE DE Interval 138 ms MUSE QRSD Interval 64 ms MUSE QT Interval 304 ms MUSE QTC Interval 443 ms MUSE P Neely 45 degrees MUSE R Neely 34 degrees MUSE T Wave Neely 46 degrees MUSE 08/13/2023 7:02 PM CDT [...] CDT Comment:Specimen Source Site : Blood Narrative [facility] - 08/16/2023 11:17 AM CDT Received Bactec [...] Alberto Henson M.D. LAB MICROBIOLOGY - G [facility] ORDERABLES [facility] [place] [address] [place] [address], [facility] [address] [place] [address] * Magnesium (08/13/2023 5:27 PM CDT) Magnesium, S 1.9 1.7 - 2.3 mg/dL 08/13/2023 6:12 PM CDT DT Blood (Blood, Venous) 08/13/2023 5:27 PM CDT 08/13/2023 5:58 PM CDT Carlos Alberto Henson M.D. LAB BLOOD ADD-ON Performing Organization Address [facility] [place]/[facility] Co de Phone Number [facility] [address] [place] [address], [facility] [address] [place] [address] * (ABNORMAL) Hepatic Function Panel (08/13/2023 5:27 [...] M.D. LAB BLOOD ADD-ON Performing Organization Address City/[facility]/ZIP Co de Phone Number [facility] [address] [place] [address], [facility] [address] [place] [address] * (ABNORMAL) Basic Metabolic Panel (08/13/2023 5:27 [...] Carlos Alberto Henson M.D. LAB BLOOD ADD-ON [facility] [address] [place] [address], [facility] [address] [place] [address] * Prothrombin Time (PT) (08/13/2023 5:27 PM [...] Carlos Alberto Henson M.D. LAB BLOOD ADD-ON [facility] [address] [place] [address], [facility] STMA [facility] [address] [place] [address] * (ABNORMAL) CBC with Differential, Blood (08/13/2023 [...] Carlos Alberto Henson M.D. LAB BLOOD ADD-ON [facility] [address] [place] [address], [facility] STMA [facility] [address] [place] [address] DHPM [facility] [address] [place] [address] * (ABNORMAL) Dipstick, Urine (08/13/2023 5:07 PM [...] Carlos Alberto Henson M.D. LAB URINE ORDERABLES [facility] [address] [place] [address], [facility] DTL [facility] [address] [place] [address] * Osmolality, Urine (08/13/2023 5:07 PM CDT) Osmolality, U 351 150 - 1150 mOsm/kg 08/13/2023 7:46 PM CDT DTL Urine 08/13/2023 5:07 PM CDT 08/13/2023 5:45 PM CDT Carlos Alberto Henson M.D. LAB URINE ORDERABLES Performing Organization Address City/[facility] Co de Phone Number [facility] [address] [place] [address], [facility] [address] [place] [address] * (ABNORMAL) Microscopic Manual (08/13/2023 5:07 PM [...] M.D. LAB URINE ORDERABLES Performing Organization Address [facility] [place]/[facility] Co de Phone Number [facility] [address] [place] [address], [facility] [address] [place] [address] * pH, Random, Urine (08/13/2023 5:07 PM CDT) pH, Random, U 7.0 4.5 - 8.0 08/13/2023 7:46 PM CDT DTL Urine 08/13/2023 5:07 PM CDT 08/13/2023 5:45 PM CDT Carlos Alberto Henson M.D. LAB URINE ORDERABLES [facility] [address] [place] [address], [place] [facility] [address] [place] [address] * (ABNORMAL) Bacterial Culture, Aerobic + Susceptibility, [...] <=4 mcg/mL: Susceptible Escherichia coli Gentamicin SUSCEPTIBILITY, ALYO (MCG/ML) <=1 mcg/mL: Susceptible Escherichia coli Tobramycin SUSCEPTIBILITY, LAYO (MCG/ML) <=1 mcg/mL: Susceptible Escherichia coli Aztreonam SUSCEPTIBILITY, LAYO (MCG/ML) <=4 mcg/mL: Susceptible Escherichia coli Trimethoprim + Sulfamethoxazole SUSCEPTIBILITY, LAYO (MCG/ML) <=0.5/9.5 mcg/mL: Susceptible Escherichia coli Nitrofurantoin SUSCEPTIBILITY, LAYO (MCG/ML) <=32 mcg/mL: Susceptible Escherichia coli Fosfomycin SUSCEPTIBILITY, LAYO (MCG/ML) <=64 mcg/mL: Susceptible Carlos Alberto Henson M.D. LAB MICROBIOLOGY - [facility] ORDERABLES [facility] [address] [place] [address], [facility] [place] [address] [place] [address] * (ABNORMAL) Urinalysis, with Microscopic: Urine, Midstream [...] CDT DTL Predicted 24 [place] [address](H) <229 mg/24 h 08/13/2023 8:50 PM CDT DTL Predicted Range 59612-505303 mg/24 h 08/13/2023 8:50 PM CDT DTL Comment Micro done on <2.5 mL 08/13/2023 7:55 PM CDT DTL Urine (Urine, Midstream) 08/13/2023 5:07 PM CDT 08/13/2023 5:44 PM CDT Carlos Alberto Henson M.D. LAB URINE ORDERABLES [facility] [address] [place] [address], [facility] DTL [facility] [address] [place] [address] * Interpretation of Outside CT Abdomen and [...] sclerotic lesion along theanterior aspect of S1 (2). This is new since 2019. Additional new [...] may use home supply. 08/17/23: Id'ed by [facility] Rx# [id number], filled 07/22/23. HAZARDOUS - Handle with care. Swallow whole. Do NOT crush, chew or open capsule. Given 08/26/2023 9:12 AM CDT 120 mg Given 08/25/2023 9:08 AM CDT 120 mg Given 08/24/2023 9:12 AM CDT 120 mg Lactated Ringer's 1.5 mL/kg/hr ? 75 kg [place] weight (112.5 mL/hr, rounded to 113 mL/hr), intravenous, Continuous, Starting on Tue08/22/23 at 1030, Conditional Phase Pre-Gastrografin Administration. (Rate = 1.5 mL/kg/hr ideal body weight) Lactated Ringer's 0.75 mL/kg/hr ? 75 kg [place] weight (56.25 mL/hr, rounded to 56.3 mL/hr), [...] Patient/family refused)0615 (Given - Provider: Brittni Howe R.Mari.)1242 (Given - Provider: Mayur SubramanianN.)1831 (Given - Provider: Mary Rosado RJonahN.) 0019 (Not Given - Provider: Fatuma See R.N. - Reason: Patient/family refused)0639 (Given - Provider: Fatuma See RJonahNJonah)1136 (Given - Provider: Tayler Forrest RJonahNJonah)1750 (Not Given - Provider: Antonia Salazar RNraendra - Reason: Patient/family refused)2349 (Not Given - [...] catheter 0615 (Given - Provider: Brittni Howe RNarendra)1521 (Given - Provider: Mary Rosado RRitesh.) 0640 (Given - Provider: Fatuma See R.N.)1750 (Given - Provider: Antonia Salazar RNarendra) 0627 (Given - Provider: Edith Simental RJonahNJonah)1600 (Due) clopidogreL tablet 75 mg (PLAVIX) 75 mg, oral, Daily, First dose on Tue08/26/23 at 0900 0915 (Given - Provider: Mayur JamesNJonah) docusate sodium liquid 100 mg (COLACE) 100 [...] use home supply. 08/17/23: Id'ed by [facility] Rx# [id number], filled 07/22/23. HAZARDOUS - Handle with care. Swallow whole. Do NOT crush, chew or open capsule. 0912 (Given - Provider: Tayler Forrest R.N. - Comment: Pat Murray, -2nd RN) 0908 (Given - Provider: Tayler Forrest R.N. - Comment: Pt 's own med from home) 0912 (Given - Provider: Lupe Valdez R.N.) fat emulsion dnt-iuy-culaf & fish oil infusion 50 g (SMOFlipid) [...] for a final concentration of 4 mg/mL. 09 (Given - Provider: Tayler Forrest R.N.) 09 [...] Provider Order)2099 (Not Given - Provider: Fatuma eSe R.N. - Reason: See Provider Order - [...] R.N. - Comment: verified by Antonia Salazar, JAMEL)2126 (Stopped - Provider: Antonia Salazar R.N.) Adult [...] Lactated Ringer's 1.5 mL/kg/hr ? 75 kg [place] weight (112.5 mL/hr, rounded to 113 mL/hr), intravenous, Continuous, Starting on Tue08/22/23 at 1030, Conditional Phase Pre-Gastrografin Administration. (Rate = 1.5 mL/kg/hr ideal body weight) Lactated Ringer's 0.75 mL/kg/hr ? 75 kg [place] weight (56.25 mL/hr, rounded to 56.3 mL/hr), [...] 1547 documented in this encounter Care Teams Weather Stripper Relationship Specialty Start Date End Date Elsewhere, Pcp PCP - General Internal Medicine 08/13/23 documented as of this encounter
== END 2023-09-30 12:41 | disposition home or self-care (01) ==
LOC: WOUND 12:40
PROVIDERS: PCP Family Medicine; Visit Provider Physician Assistant
DX: L89.153 Pressure ulcer of sacral region, stage 3 (principal); N30.41 Irradiation cystitis with hematuria
CPT/HCPCS: 97597

== ENCOUNTER 2023-10-07 12:42 | Outpatient (CLI) | payer MEDICARE, OTHER, SELFPAY ==
--- OUTSIDE RECORDS SUMMARY | 2023-10-07 12:43 | XMS_ITS | Referral Summary ---
Author Organization [facility] Address [address] [place] [address] Care Team Providers Care Chief Development Officer Name Role Phone Cesar Mccollum Primary Care Provider [phone] Allergies No known active allergies Medications Medication [...] on file Medical Devices Implanted Type Area Yarder Device Identifier Shelf Expiration Date Model / Serial / Lot Stent Ureteral Polaris Ultra [id number] - [id number] Implanted:Qty : 1 on 02/08/2022 by Nicola Ware MD at [facility] Stent Right: Ureter [employer] [id number] 10/08/2024 [id number] Explanted Type Area Yarder Device Identifier Shelf Expiration Date Model / Serial / Lot Stent Came Out Of The Right Ureter Explanted:Qty: 1 on 02/08/2022 by Nicola Ware MD at [facility] Right: Urethra Advance Directives For more information, please contact: [phone] Documents on File Type Date Recorded 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
--- OUTSIDE RECORDS SUMMARY | 2023-10-07 12:43 | XMS_ITS | Clinical Summary ---
Author Organization [facility] Address [address] [place] [address] Care Team Providers Care Family Health Nurse Practitioner Name Role Phone Cesar Mccollum Primary Care Provider [phone] Allergies No known active allergies Medications Medication [...] this topic Medical Devices Implanted Type Area Punch Hand Device Identifier Shelf Expiration Date Model / Serial / Lot Stent Ureteral Polaris Ultra [id number] - [id number] Implanted:Qty : 1 on 02/08/2022 by Nciola Ware MD at [facility] Stent Right: Ureter [employer] [id number] 10/08/2024 [id number] Explanted Type Area Punch Hand Device Identifier Shelf Expiration Date Model / Serial / Lot Stent Came Out Of The Right Ureter Explanted:Qty: 1 on 02/08/2022 by Nicola Ware MD at 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
--- OUTSIDE RECORDS SUMMARY | 2023-10-07 12:44 | XMS_ITS ---
Author Organization [facility] Address [address] [place] [address] Care Team Providers Care Table Saw Operator Name Role Phone Unavailable Unavailable Unavailable Surgery Details Not on file Complications Check Surgery Details section. Procedure Estimated Blood Loss Check Surgery Details section. Procedure Findings Check Surgery Details section. Procedure Specimens Taken Check Surgery Details section.
--- OUTSIDE RECORDS SUMMARY | 2023-10-07 12:44 | XMS_ITS | Referral Summary ---
Author Organization [facility] Address [address] [place] [address] Care Team Providers Care Cmm Operator Name Role Phone Elsewhere, Pcp Primary Care Provider Unavailabl e Source Comments Patient records contain information from all sites at [facility]. For routine questions regarding patient records, call [phone] during business hours, M-F 8:00 AM - 5:00 PM Central Time. Record requests for emergency care only can be directed to [phone] at any time.[facility] Encounters Date Type Department Care Team Description 09/27/2023 Clinical Communication Department of Urology in [place], [place] [address] [place] [address] Paula Hernandez M.D. 09/21/2023 Clinical Communication Department of Urology in [place], [place] [address] [place] [address] Paula Hernandez M.D. 09/16/2023 Clinical Communication Department of Urology in [place], [place] [address] [place] [address] Provider, Unknown follow up questions 09/16/2023 Orders Only Department of Urology in [place], [place] [address] [place] [address] Paula Hernandez M.D. Hematuria Gross (Primary Dx) 09/15/2023 Clinical Communication [facility] [address] [place] [address] Yasmine Loco 09/09/2023 7:24 AM CDT - 09/15/2023 5:28 PM CDT Hospital Encounter [facility], Sixth Floor [address] [place] [phone] Gerri Merrill M.D., Ph.D. Sumit Holbrook M.D. Hematuria (Primary Dx) Discharge Disposition: Home or Self Care 09/09/2023 12:10 PM CDT Ancillary Procedure Department of Nursing 09/09/2023 Documentation Department of Urology in [place], [place] [address] [place] [phone] Ko Victoria M.D. 09/06/2023 Orders Only Section of Hyperbaric Medicine in [place], [place] [address] [place] [phone] Kira Ferraro APRN, C.N.P., M.S.N. 09/06/2023 Clinical Communication [facility] [address] [place] [phone] Yasmine Loco 08/30/2023 7:35 PM CDT - 09/05/2023 4:09 PM CDT Hospital Encounter [facility], First Floor [address] [place] [phone] Kirstin Hughes M.D. Thompson, R. [place], M.D. Hematuria (Primary Dx); Tachycardia; Hematuria Gross Discharge Disposition: Home-Health Care Svc 09/01/2023 10:05 AM CDT Ancillary Procedure Department of Nursing 08/31/2023 12:25 PM CDT Ancillary Procedure Department of General Surgery 08/31/2023 12:34 PM CDT Anesthesia Event [facility] [address] [place] [phone] Joe Stoll M.D. Benjamin Williamson APRN, ACCOUNTING ANALYST 08/31/2023 12:36 PM CDT - 08/31/2023 2:31 PM CDT Surgery [facility] [address] [place] [phone] Mayur Alvarez M.D. CYSTOSCOPY EVACUATION CLOTS 08/30/2023 Documentation Department of Urology in [place], [place] [address] [place] [phone] Corin Ring M.D. 08/30/2023 Intake [facility] 08/26/2023 Orders Only Department of Urology in [place], [place] [address] [place] [phone] Paula Hernandez M.D. 08/13/2023 3:42 PM CDT - 08/26/2023 4:11 PM CDT Hospital Encounter [facility], Sixth Floor [address] [place] [phone] Darnell Garcia M.D. Chow, George K, M.D. Decline Functional Status [R53.81] (Primary Dx); Hematuria [R31.9] Discharge Disposition: Home or Self Care 08/23/2023 12:45 AM CDT Ancillary Procedure Department of Nursing 08/15/2023 8:30 AM CDT Anesthesia Event [facility] [address] [place] [phone] Hayde Song M.D. 08/15/2023 7:55 AM CDT - 08/15/2023 11:23 AM CDT Surgery [facility] [address] [place] [phone] Boubacar Brock M.D. Palliative EXPLORATORY LAPAROTOMY, CYSTOTOMY CLOSURE, RIGHT URETERAL STENT EXCHANGE 08/13/2023 4:35 PM CDT Ancillary Procedure Department of Radiology in [place], [place] [address] [place] [address] Carlos Alberto Henson M.D. 08/13/2023 Intake [facility] from Last 3 Months Allergies No known active allergies Medications Medication Sig Dispensed Refills Start Date End Date Status amLODIPine (NORVASC) 10 mg tablet Take 10 mg by mouth daily. Takes in the afternoon, 1 to 2 pm 01/11/2020 Active clopidogreL (PLAVIX) 75 mg tablet Take 75 mg by mouth every morning. 12/27/2019 Active metoprolol succinate (TOPROL-XL) 50 mg 24 hr tablet Take 50 mg by mouth at bedtime. 11/02/2019 Active nitroglycerin (NITROSTAT) 0.[address] 0.4 mg under the tongue every 5 (five) minutes as needed for chest pain. If chest pain continues after 5 minutes, take the second dose and call 911 11/02/2019 Active tamsulosin (FLOMAX) 0.4 mg 24 hr capsule TAKE 1 CAPSULE(0.4 MG) BY MOUTH DAILY 30 capsule 06/10/2020 Active Additional Information Patient taking differently: 0.4 mg oral Daily at bedtime, Informant: Self, Child, Reported on 09/09/2023 enzalutamide (XTANDI) 40 mg capsule Take 120 mg by mouth every morning. Take with or without food at the same time each day. Swallow it whole. Active iron,carbonyl-vi tamin C (VITRON-C) 65 mg iron- [...] prior to catheter removal 20 tablet 08/26/2023 Active bacitracin 500 unit/gram ointment Apply 1 Application topically 4 (four) times a day as needed (catheter irritaiton). Apply to tip of penis as needed for catheter irritation. 30 g 08/26/2023 4 Discontinued sulfamethoxazole -trimethoprim (BACTRIM DS) 800-160 mg per tablet Take 1 tablet by mouth every 12 (twelve) hours for 2 days. 4 tablet 09/15/2023 4 Active Problems Problem Noted Date Diagnosed Date Hematuria Gross 08/31/2023 Hematuria 08/13/2023 Lymphedema 03/21/2020 Primary Malignant Neoplasm Of Prostate 0 Cancer Staging:Clinical stage from 03/03/2020:Stage IVB(cT4, cN1, pM1b, PSA: 161.9) - Signed by Tereso Frazier M.D. on 03/21/2020 Social History Tobacco Use Types Packs/Day Years Used Date Smoking Tobacco: Never Smokeless Tobacco: Never Tobacco Cessation:Counseling Given: Not Answered [facility] Utilities Answer Date Recorded In the past 12 months has [facility] [employer], gas, oil, or water [employer] threatened to shut off services in your [...] situation today? I have a [facility] place to live 09/09/2023 Sex and [...] CDT Procedure visit Department of Urology in [place], [place] [address] [place] [address] Paula Hernandez M.D. [address] [place] [address] Medical Devices Implanted Type Area Network Control Operator Device Identifier Shelf Expiration Date Model / Serial / Lot Clp Hrzn Ti 6 Clp Lg Orng - [id number] Implanted:Qt y: 1 on 08/15/2023 by Boubacar Brock M.D. at [facility] Hardware e.g. pins/screws /rods Abdomen [employer] [id number] 02/29/2028 [id number] / / [id number] Clp Hrzn Ti 6 Clp Lg Orng - [id number] Implanted:Qt y: 1 on 08/15/2023 by Boubacar Brock M.D. at [facility] Hardware e.g. pins/screws /rods Abdomen [employer] [id number] 02/29/2028 [id number] / / [id number] 4 Clp Hrzn Ti 6 Clp Md Monty - [id number] Implanted:Qt y: 1 on 08/15/2023 by Boubacar Brock M.D. at [facility] Hardware e.g. pins/screws /rods Abdomen [employer] [id number] 03/13/2028 [id number] / / [id number] 1 Clp Hrzn Ti 6 Clp Md Monty - [id number] Implanted:Qt y: 1 on 08/15/2023 by Boubacar Brock M.D. at [facility] Hardware e.g. pins/screws /rods Abdomen [employer] [id number] 03/21/2028 [id number] / / [id number] 3 Stnt Uret Inl 6fx24 - [id number] Implanted:Qt y: 1 on 08/15/2023 by Jakob De Paz M.D. at [facility] Ureteral Stent N/A: Ureter C.[employer].Bard [id number] 11/18/2027 [id number] / / [id number] Procedures Procedure Name Priority Date/Time Associated Diagnosis [...] LINE INSERTION Routine 08/15/2023 9:51 AM CDT DC US GUIDE VASC ACCESS Routine 08/15/2023 9:51 AM CDT DC ARTL CATH/CNULA MONITOR PERC Routine 08/15/2023 9:51 [...] Organization Address [facility] Co de Phone Number [facility] [address] [place], [place] [id number] [place] [address] [address] [place] [address] * Heparin Anti-Xa Assay (09/14/2023 3:19 AM [...] LAB BLOOD NON ADD-ON Performing Organization Address City/[facility]/ZIP Co de Phone Number [facility] [address] [place] [address], [facility] [address] [place] [address] * IR Nephrostomy Tube Placement Left (09/13/2023 2:20 PM CDT) Anatomical Region Laterality Modality Genito Urinary, Vascular Int erventional RST LOS, Vascular Interventional ARZ LOS, Vascular Interventional FLA LOS Left X-Ray Angiography Impressions 09/13/2023 2:33 PM CDT Left 10 Kazakh percutaneous nephrostomy tube placement. EP Narrative 09/13/2023 [...] tract was further dilated and a 10 Kazakh nephrostomy tube was placed with loop formed [...] sedation timewas: 9 minutes. IMPRESSION: Left 10 Kazakh percutaneous nephrostomy tube placement. EP Latisha Whitehead [...] MICROBIOLOGY - GENERAL ORDERABLES Performing Organization Address City/[facility]/ZIP Co de Phone Number [facility] [address] [place] [address], [facility] [address] [place] [address] * Gram Stain (09/13/2023 2:17 PM CDT) Gram Stain No organisms seen. White blood cells, Rare 09/13/2023 9:02 PM CDT DTL Fluid (Kidney, Left) 09/13/2023 2:17 PM CDT 09/13/2023 3:56 PM CDT Comment:Specimen Source Site : Fluid Latisha Whitehead M.D. LAB MICROBIOLOGY - GENERAL ORDERABLES Performing Organization Address City/[facility] Co de Phone Number [facility] [address] [place] [address], [facility] [address] [place] [address] * Bacterial Culture, Anaerobic + Susceptibility (09/13/2023 2:17 PM CDT) Bacterial Culture, Anaerobic + Susc No growth after 14 days of incubation. 09/27/2023 8:04 AM CDT DTL Fluid (Kidney, Left) 09/13/2023 2:17 PM CDT 09/13/2023 3:56 PM CDT Comment:Specimen Source Site : Fluid Latisha Whitehead M.D. LAB MICROBIOLOGY - GENERAL ORDERABLES [facility] [address] [place] [address], [facility] [address] [place] [address] * APTT (Activated Partial Thromboplastin Time) (09/13/2023 5:56 AM CDT) Only the most recent of18 resultswithin the time period is included. Activated Partial Thrombopl Time, P 35 25 - 37 sec 09/13/2023 7:14 AM CDT DTL Blood (Blood, Venous) 09/13/2023 5:56 AM CDT 09/13/2023 6:53 AM CDT Sumit Holbrook M.D. LAB BLOOD ADD-ON [facility] [address] [place] [address], [facility] DTL [facility] [address] [place] [address] * (ABNORMAL) Basic Metabolic Panel (09/13/2023 5:56 [...] Hernandez M.D. LAB BLOOD ADD-ON [facility] [address] [place] [address], [place] DTL [facility] [address] [place] [address] * NM Kidney DMSA (09/12/2023 12:21 PM [...] urinary catheter.No internal vascularity. Js Yang M.D. [facility] [place] PROCEDURES * Coccyx-Nursing Image Exam (09/09/2023 [...] RAD IMAGI NG PROCEDURES Performing Organization Address City/[facility]/ZIP Co de Phone Number [facility] NA * Osmolality, Urine (09/09/2023 11:28 AM CDT) Only the most recent of2 resultswithin the time period is included. Osmolality, U 380 150 - 1150 mOsm/kg 09/09/2023 12:19 PM CDT DTL Urine 09/09/2023 11:2 8 AM CDT 09/09/2023 11:58 AM CDT Jeffery Church M.D. LAB URINE ORDERA BLES Performing Organization Address [facility] de Phone Number [facility] [address] [place] [address], [facility] [place] [address] * (ABNORMAL) Dipstick, Urine (09/09/2023 11:28 AM [...] LAB URINE ORDERA BLES Performing Organization Address City/[facility] de Phone Number [facility] [address] [place] [address] * pH, Random, Urine (09/09/2023 11:28 AM CDT) Only the most recent of2 resultswithin the time period is included. pH, Random, U 6.3 4.5 - 8.0 09/09/2023 12:19 PM CDT DTL Urine 09/09/2023 11:2 8 AM CDT 09/09/2023 11:58 AM CDT Jeffery Church M.D. LAB URINE ORDERA BLES Performing Organization Address [facility] de Phone Number [facility] [address] [place] [address] * (ABNORMAL) Microscopic Manual (09/09/2023 11:28 AM [...] LAB URINE ORDERA BLES Performing Organization Address City/[facility]/ZIP Co de Phone Number [facility] [address] [place] [address], [facility] DTL [facility] [address] [place] [address] * (ABNORMAL) Bacterial Culture, Aerobic + Susceptibility, [...] MICROBIOLOGY - GENERAL ORDERABLES Performing Organization Address [facility] de Phone Number [facility] [address] [place] [address], [address] [address] * (ABNORMAL) Gram Stain, Urine (09/09/2023 11:28 AM CDT) Source Urine, Urine, Straight Catheter 09/09/2023 11:58 AM CDT DTL Gram Stain, U Positive(A) Negative 09/09/2023 12:16 PM CDT DTL Comment: Few Gram-negative bacilli ? Yeast Urine 09/09/2023 11:2 8 AM CDT 09/09/2023 11:58 AM CDT Jeffery Church M.D. LAB URINE ORDERA BLES Performing Organization Address [facility] de Phone Number [facility] [address] [place], [place] [address] [address] [place] [address] * (ABNORMAL) Urinalysis, with Microscopic: Urine, Straight [...] 09/09/2023 1:02 PM CDT DTL Predicted Range 2480-93121 mg/24 h 09/09/2023 1:02 PM CDT DTL Comment Micro done on <2.5 mL 09/09/2023 12:27 PM CDT DTL Urine (Urine, Straight Catheter) 09/09/2023 11:28 AM CDT 09/09/2023 11:58 AM CDT Jeffery Church M.D. LAB URINE ORDERA BLES [facility] [address] [place] [address], [facility] [address] [place] [address] * US Kidneys Bilateral with Bladder (09/09/2023 [...] CDT Jeffery Church M.D. LAB BLOOD ADD-ON [facility] [address] [place] [address], [facility] STMA [facility] [address] [place] [address] * (ABNORMAL) CBC with Differential, Blood (09/09/2023 [...] M.D. LAB BLOOD ADD-ON Performing Organization Address City/[facility]/ZIP Co de Phone Number [facility] [address] [place] [address], [facility] STMA [facility] [address] [place] [address] [facility] [address] [place] [address] * Type and Screen (with Reflex Antibody [...] BANK T EST ORDERABLES Performing Organization Address City/[facility] Co de Phone Number [facility] [address] [place] [address], [facility] [address] [place] [address] * Potassium (09/05/2023 4:56 AM CDT) Only the most recent of2 resultswithin the time period is included. Potassium, S 3.6 3.6 - 5.2 mmol/L 09/05/2023 5:49 AM CDT DTL Blood (Blood, Venous) 09/05/2023 4:56 AM CDT 09/05/2023 5:22 AM CDT Roxy Romero M.D. LAB BLOOD ADD-ON [facility] [address] [place] [address], [place] DTL [facility] [address] [place] [address] * FL Fluoro Less Than 1 Hour [...] M.D. IMG FLUOROSCOPY PROCEDURES Performing Organization Address City/[facility]/ZIP Co de Phone Number 152 HOS LOS RST * LDA ANE NON-SURGICAL AIRWAY (08/31/2023 12:43 PM CDT) Narrative Benjamin Williamosn APRN, CRNA - 08/31/2023 12:43 PM CDT [...] (ABNORMAL) Hemoglobin (08/31/2023 4:21 AM CDT) Pathologist [facility] Hemoglobin 7.8(L) 13.2 - 16.6 g/dL 08/31/2023 4:47 AM CDT DTL Blood (Blood, Venous) 08/31/2023 4:21 AM CDT 08/31/2023 4:35 AM CDT Kimi Vieira M.D., M.S. LAB BLOO D ADD-ON Performing Organization Address City/[facility]/ZIP Co de Phone Number [facility] [address] DTL [facility] [address] [place] [address] * Lactate (08/30/2023 9:50 PM CDT) [facility] Lactate, P 1.8 0.5 - 2.2 mmol/L 08/30/2023 10:09 PM CDT STMA Blood (Blood, Venous) 08/30/2023 9:50 PM CDT 08/30/2023 9:55 PM CDT Shannan Corrae D.O., M.H.A. LAB BLOOD NON ADD-ON Performing Organization Address City/[facility]/ZIP Co de Phone Number [facility] [address] STMA [facility] [address] [place] [address] * DX Chest AP or PA and [...] included. Ventricular Rate ECG/Min 145 BPM MUSE DC Interval 136 ms MUSE QRSD Interval 64 ms MUSE QT Interval 260 ms MUSE QTC Interval 403 ms MUSE P Callaway 44 degrees MUSE R Callaway 9 degrees MUSE T Wave Callaway -76 degrees MUSE 08/30/2023 7:44 PM CDT [...] M.D. LAB BLOOD ADD-ON Performing Organization Address City/[facility]/[place] [address] * Magnesium (08/26/2023 3:20 AM CDT) Only the most recent of6 resultswithin the time period is included. Magnesium, S 2.1 1.7 - 2.3 mg/dL 08/26/2023 4:04 AM CDT DTL Blood (Blood, Venous) 08/26/2023 3:20 AM CDT 08/26/2023 3:50 AM CDT Boubacar Brock M.D. LAB BLOOD ADD-ON Performing Organization Address City/[facility]/ZIP Co de Phone Number [facility] [address] [place] [address], [place] [address] * (ABNORMAL) Phosphorus Inorganic (08/23/2023 9:58 PM CDT) Only the most recent of2 resultswithin the time period is included. Phosphorus (Inorganic), S 2.1(L) 2.5 - 4.5 mg/dL 08/23/2023 10:45 PM CDT DTL Blood (Blood, Venous) 08/23/2023 9:58 PM CDT 08/23/2023 10:30 PM CDT Paula Hernandez M.D. LAB BLOOD ADD-ON [facility] [address] [place] [address], [facility] [address] [place] [address] * Triglycerides (08/23/2023 3:42 AM CDT) Only [...] M.D. LAB BLOOD ADD-ON Performing Organization Address City/[facility]/ZIP Co de Phone Number [facility] [address] [place] [address], [facility] [address] [place] [address] * Glucose, POCT (08/22/2023 11:38 PM CDT) Glucose, POCT, B 117 70 - 140 mg/dL 08/23/2023 1:06 AM CDT PCLX Site Capillary 08/23/2023 1:06 AM CDT PCLX Last Intake NPO 08/23/2023 1:06 AM CDT PCLX Blood 08/22/2023 11:3 8 PM CDT 08/23/2023 1:06 AM CDT Unknown Provider LAB POCT ORDERABLES- MANUAL POC [facility] [address] [place] [address], [place] PCLX [facility] POC [address] [place] [address] * CT Abdomen Pelvis without IV Contrast [...] transport rates. All other fluids refer to www.BMe [employer] for further interpretive information. This test has been modified from the blueprint machine operator's instructions. Its performance characteristics were determined by [facility] in a manner consistent with CLIA requirements. This test has not been cleared or approved by the U.S. Food and Drug Administration. Fluid Type, Creatinine Fluid, Abdomen 08/22/2023 3:52 PM CDT DTL Fluid (Abdomen) 08/22/2023 3 :30 PM CDT 08/22/2023 6:36 PM CDT Corin Ring M.D. LAB BODY FLUIDS AND STOOLS ORDERABLES [facility] [address] [place] [address], [facility] DTL [facility] [address] [place] [address] * IR PICC Line Placement (08/22/2023 8:35 AM CDT) Anatomical Region Laterality Modality Chest, Pelvis, Abdomen, Vasc ular Interventional RST LOS, Vascular Interventional ARZ LOS, Vascular Interventional FLA LOS N/A X-Ray Angiography Impressions 08/22/2023 9:05 AM CDT Placement of a right IJ vein single-lumen 4 Kazakh tunneled PowerPICC ready for immediate use. NR [...] advanced into the IVC and a 4 Kazakh dilator advanced over the wire and attached to a one-way stopcock. A suitable exit site in the right anterior chest was anesthetized and a small incision made. A 4 Kazakh single-lumen PowerPICC was then tunneled from the [...] Wireadvanced into the IVC and a 4 Kazakh dilator advanced over the wire andattached to a one-way stopcock. A suitable exit site in the right anteriorchest was anesthetized and a small incision made. A 4 Kazakh single-lumen PowerPICC was then tunneled fromthe skin [...] of a right IJ vein single-lumen 4 Kazakh tunneled PowerPICCready for immediate use. NR Kimi [...] CDT Latisha Whitehead M.D. [place] [address], [facility] [address] [place] [address] * Place peripherally inserted central catheter (PICC) [...] and management can be found on the Social Plus site. Link https://Behavioral Recognition SystemsnjVMobert.[facility].org/topic/clinical-answers/[email or web address]/[facility]-204 [address] Findings discussed with ??Tayler Greenwood, ?? ([id number]) on 08/17/2023 7:11 PM. Procedure Note Jj [...] thrombosis and management can be found on theAskMy1login site. [email or web address].[email or web address]/topic/clinical-answers/[email or web address]/cpm -2049 1725 Findings discussed with Tayler Greenwood MD ([id number]) on 08/17/2023 7:11 PM. IMPRESSION: 1. Aging, [...] Song M.D. LAB BLOOD NON ADD-O N [facility] [address] [place] [address], [facility] [address] [place] [address] * Patient Status (08/15/2023 11:56 AM CDT) Only the most recent of2 resultswithin the time period is included. Temperature 36.2 37.0 deg C 08/15/2023 12:04 PM CDT STMA Blood 08/15/2023 11:5 6 AM CDT 08/15/2023 12:03 PM CDT Rae Gonzalez SAFETY AND HEALTH MANAGER, ACCOUNTING ANALYST, DNAP LAB BLOO D NON ADD-ON Performing Organization Address City/[facility]/ZIP Co de Phone Number [facility] [address] [place] [address] * Sodium, B (08/15/2023 11:56 AM CDT) Only the most recent of2 resultswithin the time period is included. Pathologist [facility] Sodium, B 135 135 - 145 mmol/L 08/15/2023 12:06 PM CDT STMA Blood (Blood, Arterial Line) 08/15/2023 11:56 AM CDT 08/15/2023 12:03 PM CDT Hayde Song M.D. LAB BLOOD NON ADD-O N Performing Organization Address City/[facility]/ZIP Co de Phone Number [facility] [address] [place] [address] * (ABNORMAL) Blood Gas with Coox, Arterial [...] Song M.D. LAB BLOOD NON ADD-O N [facility] [address] [place] [address], [facility] 200 [place] [address] * Potassium, Blood (08/15/2023 11:56 AM CDT) Only the most recent of2 resultswithin the time period is included. [facility] Potassium, B 4.3 3.6 - 5.2 mmol/L 08/15/2023 12:07 PM CDT STMA Blood (Blood, Arterial Line) 08/15/2023 11:56 AM CDT 08/15/2023 12:03 PM CDT Hayde Song M.D. LAB BLOOD NON ADD-O N [facility] [address] [place] [address], [facility] [address] [place] [address] * (ABNORMAL) Glucose, Whole Blood (08/15/2023 11:56 AM CDT) Only the most recent of2 resultswithin the time period is included. Glucose 144(H) 70 - 140 mg/dL 08/15/2023 12:06 PM CDT STMA Blood (Blood, Arterial Line) 08/15/2023 11:56 AM CDT 08/15/2023 12:03 PM CDT Hayde Song M.D. LAB BLOOD ADD-ON Performing Organization Address City/[facility]/ZIP Co de Phone Number [facility] [address] [place], [place] [id number] [place] [place] [id number] * (ABNORMAL) Calcium, Ionized (08/15/2023 11:56 AM CDT) Only the most recent of2 resultswithin the time period is included. Calcium, Ionized, B 4.53(L) 4.65 - 5.30 mg/dL 08/15/2023 12:07 PM CDT [facility] Blood (Blood, Arterial Line) 08/15/2023 11:56 AM CDT 08/15/2023 12:03 PM CDT Hayde Song M.D. LAB BLOOD NON ADD-O N Performing Organization Address City/[facility]/ZIP Co de Phone Number [facility] [address] [place], [place] [id number] [place] [phone] * [place] ARTL CATH/CNULA MONITOR PERC, [place] US GUIDE VASC ACCESS, LDA ANE ARTERIAL LINE INSERTION, MC ANE INVASIVE CATH WITH ULTRASOUND (08/15/2023 9:51 AM CDT) Narrative Rae Gonzalez APRN, ACCOUNTING ANALYST, DNAP - 08/15/2023 9:51 AM CDT Rae Gonzalez APRN, ACCOUNTING ANALYST, DNAP ? 08/15/2023 ??9:52 AM Invasive Catheter [...] ETT location: oral VL device: glide scope Pimento scope blade size: 4 Tube size: 7.5 [...] Carlos Alberto Henson M.D. LAB MICROBIOLOGY - [facility] ORDERABLES [facility] [address] [place] [address], [facility] [address] [place] [address] * (ABNORMAL) Hepatic Function Panel (08/13/2023 5:27 [...] ADD-ON [facility] [address] [place] [address], [place] [facility] [address] [place] [address] * Interpretation of Outside CT Abdomen and [...] CT Body (08/13/2023 4:35 AM CDT) Narrative [facility] - 08/13/2023 12:29 PM CDT This order [...] Advance Directives For more information, please contact: [phone] * Full Code (Latest Code Status on File) Date Activated Date Inactivated Comments 08/30/2023 10:40 PM 09/05/2023 6:15 PM Question Answer Comments Full Code: Not Discussed Due to: Patient not available * Full Code Date Activated Date Inactivated Comments 08/13/2023 4:30 PM 08/26/2023 6:58 PM Question Answer Comments Full Code: Discussed Care Teams Cmm Operator Relationship Specialty Start Date End Date Elsewhere, Pcp PCP - General Internal Medicine 08/13/23
--- OUTSIDE RECORDS SUMMARY | 2023-10-07 12:44 | XMS_ITS | Encounter Summary ---
Author Organization [facility] Address [address] [place] [address] Care Team Providers Care Pelletising Extruder Operator Name Role Phone Elsewhere, Pcp Primary Care Provider Unavailabl e Encounter Details Date Type Department Care Team (Late st Contact Info) Description 09/27/2023 Clinical Communication Department of Urology in [place], [place] [address] [place] [address] Paula Hernandez M.D. [address] [place] [address] Social History Tobacco Use Types Packs/Day Years Used Date Smoking Tobacco: Never Smokeless Tobacco: Never [facility] Utilities Answer Date Recorded In the past 12 months has [facility] electric, gas, oil, or water [employer] threatened to shut off services in your [...] your living situation today? I have a [facility] place to live 09/09/2023 Sex and [...] CDT Procedure visit Department of Urology in [place], [place] [address] [place] [address] Paula Hernandez M.D. [address] [place] [address] documented as of this encounter Visit Diagnoses Not on filedocumented in this encounter Care Teams Pelletising Extruder Operator Relationship Specialty Start Date End Date Elsewhere, Pcp PCP - General Internal Medicine 08/13/23 documented as of this encounter
--- OUTSIDE RECORDS SUMMARY | 2023-10-07 12:44 | XMS_ITS | Encounter Summary ---
Author Organization [facility] Address [address] [place] [address] Care Team Providers Care Compotype Operator Name Role Phone Elsewhere, Pcp Primary Care Provider Unavailabl e Encounter Details Date Type Department Care Team (Late st Contact Info) Description 09/21/2023 Clinical Communication Department of Urology in [place], [place] [address] [place] [address] Paula Hernandez M.D. [address] [place] [address] Social History Tobacco Use Types Packs/Day Years Used Date Smoking Tobacco: Never Smokeless Tobacco: Never [facility] Utilities Answer Date Recorded In the past 12 months has [facility] electric, gas, oil, or water [employer] threatened to shut off services in your [...] your living situation today? I have a [facility] place to live 09/09/2023 Sex and Gender Information Value Date Recorded Sex Assigned at Not on file Gender Identity Not on file Sexual Orientation Not on file documented as of this encounter Miscellaneous Notes * Telephone Encounter - Paula Hernandez M.D. - 09/21/2023 2:37 PM CDT I called the patient's [place] physician who he saw yesterday, 09/19 in [...] CDT Procedure visit Department of Urology in [place], [place] [address] [place] [address] Paula Hernandez M.D. [address] [place] [address] documented as of this encounter Visit Diagnoses Not on filedocumented in this encounter Care Teams Compotype Operator Relationship Specialty Start Date End Date Elsewhere, Pcp PCP - General Internal Medicine 08/13/23 documented as of this encounter
--- OUTSIDE RECORDS SUMMARY | 2023-10-07 12:44 | XMS_ITS | Clinical Summary ---
Author Organization [facility] Address [address] [place] [address] Care Team Providers Care Population Health Manager Name Role Phone Elsewhere, Pcp Primary Care Provider Unavailabl e Source Comments Patient records contain information from all sites at [facility]. For routine questions regarding patient records, call [phone] during business hours, M-F 8:00 AM - 5:00 PM Central Time. Record requests for emergency care only can be directed to [phone] at any time.[facility] Allergies No known active allergies Medications [...] 09/27/2023 Clinical Communication Department of Urology in [place], [place] [address] [place] [phone] Paula Hernandez M.D. 09/21/2023 Clinical Communication Department of Urology in [place], [place] [address] [place] [phone] Paula Hernandez M.D. 09/16/2023 Clinical Communication Department of Urology in [place], [place] [address] [place] [phone] Provider, Unknown follow up questions 09/16/2023 Orders Only Department of Urology in [place], [place] [address] [place] [phone] Paula Hernandez M.D. Hematuria Gross (Primary Dx) 09/15/2023 Clinical Communication [facility] [address] [place] [phone] Yasmine Loco 09/09/2023 12:10 PM CDT Ancillary Procedure Department of Nursing 09/09/2023 7:24 AM CDT - 09/15/2023 5:28 PM CDT Hospital Encounter [facility], [facility], Sixth Floor [address] [place] [phone] Gerri Merrill M.D., Ph.D. Sumit Holbrook M.D. Hematuria (Primary Dx) Discharge Disposition: Home or Self Care 09/09/2023 Documentation Department of Urology in [place], [place] [address] [place] [phone] Ko Victoria M.D. 09/06/2023 Orders Only Section of Hyperbaric Medicine in [place], [place] [address] [place] [phone] Kira Ferraro APRN, C.N.P., M.S.N. 09/06/2023 Clinical Communication [facility] [address] [place] [phone] Yasmine Loco 09/01/2023 10:05 AM CDT Ancillary Procedure Department of Nursing 08/31/2023 12:36 PM CDT - 08/31/2023 2:31 PM CDT Surgery [facility] [address] [place] [phone] Mayur Alvarez M.D. CYSTOSCOPY EVACUATION CLOTS 08/31/2023 12:34 PM CDT Anesthesia Event [facility] [address] [place] [phone] Joe Stoll M.D. Benjamin Williamson APRN, BUSINESS COMMUNICATIONS INSTRUCTOR 08/31/2023 12:25 PM CDT Ancillary Procedure Department of General Surgery 08/30/2023 7:35 PM CDT - 09/05/2023 4:09 PM CDT Hospital Encounter [facility], [facility], [facility], First Floor [address] [place] [phone] Kirstin Hughes M.D. Thompson, R. Houston, M.D. Hematuria (Primary Dx); Tachycardia; Hematuria Gross Discharge Disposition: Home-Health Care [facility] 08/30/2023 Documentation Department of Urology in [place], [place] [address] [place] [phone] Corin Ring M.D. 08/30/2023 Intake [facility] 08/26/2023 Orders Only Department of Urology in [address] [phone] Paula Hernandez M.D. 08/23/2023 12:45 AM CDT Ancillary Procedure Department of Nursing 08/15/2023 8:30 AM CDT Anesthesia Event [facility] [address] [place] [phone] Hayde Song M.D. 08/15/2023 7:55 AM CDT - 08/15/2023 11:23 AM CDT Surgery [facility] [address] [place] [phone] Boubacar Brock M.D. Palliative EXPLORATORY LAPAROTOMY, CYSTOTOMY CLOSURE, RIGHT URETERAL STENT EXCHANGE 08/13/2023 4:35 PM CDT Ancillary Procedure Department of Radiology in [place], [place] [address] [place] [phone] Carlos Alberto Henson M.D. 08/13/2023 3:42 PM CDT - 08/26/2023 4:11 PM CDT Hospital Encounter [facility], [facility], Sixth Floor [address] [place] [phone] Darnell Garcia M.D. Chow, George K, M.D. Decline Functional Status [R53.81] (Primary Dx); Hematuria [R31.9] Discharge Disposition: Home or Self Care 08/13/2023 Intake [facility] from Last 3 Months Social History Tobacco Use Types Packs/Day Years Used Date Smoking Tobacco: Never Smokeless Tobacco: Never Tobacco Cessation:Counseling Given: Not Answered [facility] Utilities Answer Date Recorded In the past 12 months has e [employer], gas, oil, or water [employer] threatened to shut off services in [...] your living situation today? I have a [facility] place to live 09/09/2023 Sex [...] CDT Procedure visit Department of Urology in [place], [place] [address] [place] [phone] Paula Hernandez M.D. [address] [place] [phone] Health Maintenance Due Date Last Done Comments Zoster Vaccines (1 of 2) 1989 Depression Screening (Annual PHQ-2) 04/11/2023 Fall Risk Screen (Annual) 04/11/2023 DTaP,Tdap,and Td Vaccines (2 - Td or Tdap) 09/07/2026 09/07/2016 Influenza Vaccine Completed 03/08/2023, 01/28/2022 COVID-19 Vaccine Completed 07/21/2023, , 09/13/2022, Additional history exists Pneumococcal vaccine (65+ years) Completed 07/21/19 24 Medical Devices Implanted Type Area Mill Dresser Device Identifier Shelf Expiration Date Model / Serial / Lot Clp Hrzn Ti 6 Clp Lg Orng - [id number] Implanted:Qt y: 1 on 08/15/2023 by Boubacar Brock M.D. at [facility] Hardware e.g. pins/screws /rods Abdomen [employer] [id number] 02/29/2028 [id number] / / [id number] Clp Hrzn Ti 6 Clp Lg Orng - [id number] Implanted:Qt y: 1 on 08/15/2023 by Boubacar Brock M.D. at [facility] Hardware e.g. pins/screws /rods Abdomen [employer] [id number] 02/29/2028 [id number] / / [id number] Clp Hrzn Ti 6 Clp Md Monty - [id number] Implanted:Qt y: 1 on 08/15/2023 by Boubacar Brock M.D. at [facility] Hardware e.g. pins/screws /rods Abdomen [employer] [id number] 03/13/2028 [id number] / / [id number] Clp Hrzn Ti 6 Clp Md Monty - [id number] Implanted:Qt y: 1 on 08/15/2023 by Boubacar Brock M.D. at [facility] Hardware e.g. pins/screws /rods Abdomen [employer] [id number] 03/21/2028 [id number] / / [id number] Stnt Uret Inl 6fx24 - [id number] Implanted:Qt y: 1 on 08/15/2023 by Jakob De Paz M.D. at [facility] Ureteral Stent N/A: Ureter C.[employer].Bard [id number] 11/18/2027 [id number] / / [id number] Procedures Procedure Name Priority Date/Time Associated Diagnosis [...] LINE INSERTION Routine 08/15/2023 9:51 AM CDT KS US GUIDE VASC ACCESS Routine 08/15/2023 9:51 AM CDT KS ARTL CATH/CNULA MONITOR PERC Routine 08/15/2023 9:51 [...] M.D. LAB BLOOD ADD-ON Performing Organization Address City/State/[facility] Co de Phone Number [facility] [address] [place] [address], [facility] 200 [place] [address] * Heparin Anti-Xa Assay (09/14/2023 3:19 AM [...] Sumit Holbrook M.D. LAB BLOOD NON ADD-ON [facility] [address] [place] [address], [place] DTL [facility] [address] [place] [address] * IR Nephrostomy Tube Placement Left (09/13/2023 2:20 PM CDT) Anatomical Region Laterality Modality Genito Urinary, Vascular Int erventional RST LOS, Vascular Interventional ARZ LOS, Vascular Interventional FLA LOS Left X-Ray Angiography Impressions 09/13/2023 2:33 PM CDT Left 10 Nepalese percutaneous nephrostomy tube placement. EP Narrative 09/13/2023 [...] tract was further dilated and a 10 Nepalese nephrostomy tube was placed with loop formed [...] sedation timewas: 9 minutes. IMPRESSION: Left 10 Nepalese percutaneous nephrostomy tube placement. EP Latisha Whitehead [...] MICROBIOLOGY - GENERAL ORDERABLES Performing Organization Address [facility] Co de Phone Number [facility] [address] [place], [place] [address] [place] [address] 200 [place] [address] * Gram Stain (09/13/2023 2:17 PM CDT) Gram Stain No organisms seen. White blood cells, Rare 09/13/2023 9:02 PM CDT DTL Fluid (Kidney, Left) 09/13/2023 2:17 PM CDT 09/13/2023 3:56 PM CDT Comment:Specimen Source Site : Fluid Latisha Whitehead M.D. LAB MICROBIOLOGY - GENERAL ORDERABLES Performing Organization Address [facility] Co de Phone Number [facility] [address] [place] [address], [facility] [address] [place] [address] * Bacterial Culture, Anaerobic + Susceptibility (09/13/2023 2:17 PM CDT) Bacterial Culture, Anaerobic + Susc No growth after 14 days of incubation. 09/27/2023 8:04 AM CDT DTL Fluid (Kidney, Left) 09/13/2023 2:17 PM CDT 09/13/2023 3:56 PM CDT Comment:Specimen Source Site : Fluid Maraika O Whitehead M.D. LAB MICROBIOLOGY - GENERAL ORDERABLES Performing Organization Address [facility] Co de Phone Number [facility] [address] [place] [address] * APTT (Activated Partial Thromboplastin Time) (09/13/2023 5:56 AM CDT) Only the most recent of18 resultswithin the time period is included. [facility] Activated Partial Thrombopl Time, P 35 25 - 37 sec 09/13/2023 7:14 AM CDT DTL Blood (Blood, Venous) 09/13/2023 5:56 AM CDT 09/13/2023 6:53 AM CDT Sumit Holbrook M.D. LAB BLOOD ADD-ON Performing Organization Address [facility] [place] [place] [address] * (ABNORMAL) Basic Metabolic Panel (09/13/2023 5:56 AM CDT) Only the most recent of14 resultswithin the time period is included. [facility] Potassium, S 3.7 3.6 - 5.2 mmol/L [...] [facility] [address] [place] [address], [place] [facility] [address] [place] [address] * NM Kidney DMSA (09/12/2023 12:21 PM [...] RAD IMAGI NG PROCEDURES Performing Organization Address [facility] Co de Phone Number [facility] NA * Osmolality, Urine (09/09/2023 11:28 AM CDT) Only the most recent of2 resultswithin the time period is included. Osmolality, U 380 150 - 1150 mOsm/kg 09/09/2023 12:19 PM CDT DTL Urine 09/09/2023 11:2 8 AM CDT 09/09/2023 11:58 AM CDT Jeffery Church M.D. LAB URINE ORDERA BLES Performing Organization Address City/[facility] Co de Phone Number [facility] [address] [place] [address], [facility] DTL [facility] [address] [place] [address] * (ABNORMAL) Dipstick, Urine (09/09/2023 11:28 AM [...] LAB URINE ORDERA BLES Performing Organization Address City/[facility] Co de Phone Number [facility] [address] [place] [address] * pH, Random, Urine (09/09/2023 11:28 AM CDT) Only the most recent of2 resultswithin the time period is included. pH, Random, U 6.3 4.5 - 8.0 09/09/2023 12:19 PM CDT DTL Urine 09/09/2023 11:2 8 AM CDT 09/09/2023 11:58 AM CDT Jeffery Church M.D. LAB URINE ORDERA BLES Performing Organization Address City/[facility] Co de Phone Number [facility] [address] [place] [address] * (ABNORMAL) Microscopic Manual (09/09/2023 11:28 AM [...] Church M.D. LAB URINE ORDERA [place] [facility] [address] [place] [address], [facility] [address] [place] [address] * (ABNORMAL) Bacterial Culture, Aerobic + Susceptibility, [...] MICROBIOLOGY - GENERAL ORDERABLES Performing Organization Address City/[facility] Co de Phone Number [facility] [address] [place] [address], [facility] 200 [place] [address] * (ABNORMAL) Gram Stain, Urine (09/09/2023 11:28 AM CDT) Source Urine, Urine, Straight Catheter 09/09/2023 11:58 AM CDT DTL Gram Stain, U Positive(A) Negative 09/09/2023 12:16 PM CDT DTL Comment: Few Gram-negative bacilli ? Yeast Urine 09/09/2023 11:2 8 AM CDT 09/09/2023 11:58 AM CDT Jeffery Church M.D. LAB URINE ORDERA BLES Performing Organization Address [facility]/ZIP Co de Phone Number [facility] [address] [place] [address], [facility] [place] [address] [place] [address] * (ABNORMAL) Urinalysis, with Microscopic: Urine, Straight [...] 09/09/2023 1:02 PM CDT DTL Predicted Range 2480-89296 mg/24 h 09/09/2023 1:02 PM CDT DTL Comment Micro done on <2.5 mL 09/09/2023 12:27 PM CDT DTL Urine (Urine, Straight Catheter) 09/09/2023 11:28 AM CDT 09/09/2023 11:58 AM CDT Jeffery Church M.D. LAB URINE ORDERA [facility] [address] [place] [address], [facility] DTL [facility] [address] [place] [address] * US Kidneys Bilateral with Bladder (09/09/2023 [...] clot within the urinarybladder. Jeffery Church M.D. [facility] US PROCEDURE S * Prothrombin Time (PT) [...] [facility] [address] [place] [address], [facility] [address] [place] [address] * (ABNORMAL) CBC with Differential, Blood (09/09/2023 [...] M.D. LAB BLOOD ADD-ON Performing Organization Address City/[facility]/ZIP Co de Phone Number [facility] [address] [place] [address], [facility] STMA [facility] [address] [place] [address] DHPM [facility] [address] [place] [address] * Type and Screen (with Reflex Antibody ID) (09/09/2023 8:03 AM CDT) Only the most recent of6 resultswithin the time period is included. ABORh O Pos Not applicable 09/09/2023 8:47 AM CDT STRM Antibody Screen Negative Negative 09/09/2023 9:02 AM CDT STRM Type & Screen Expiration 09/12/2023 23:59 09/09/2023 8:47 AM CDT STRM Testing Location [place] DEFAULT 09/09/2023 8:10 AM CDT STRM Blood (Blood, Venous) 09/09/2023 8:03 AM CDT 09/09/2023 8:10 AM CDT Jeffery Church M.D. LAB BLOOD BANK T EST ORDERABLES Performing Organization Address City/[facility]/ZIP Co de Phone Number [facility] [address] [place] [address], [facility] STRM [facility] [address] [place] [address] * Potassium (09/05/2023 4:56 AM CDT) Only the most recent of2 resultswithin the time period is included. Potassium, S 3.6 3.6 - 5.2 mmol/L 09/05/2023 5:49 AM CDT DTL Blood (Blood, Venous) 09/05/2023 4:56 AM CDT 09/05/2023 5:22 AM CDT Roxy Romero M.D. LAB BLOOD ADD-ON Performing Organization Address City/[facility] Co de Phone Number [address] [address], [facility] [address] [address] * [place] Fluoro Less Than 1 Hour [...] M.D. IMG FLUOROSCOPY PROCEDURES Performing Organization Address City/[facility]/ZIP Co de Phone Number 152 HOS LOS [...] (ABNORMAL) Hemoglobin (08/31/2023 4:21 AM CDT) Pathologist [facility] Hemoglobin 7.8(L) 13.2 - 16.6 g/dL 08/31/2023 4:47 AM CDT DTL Blood (Blood, Venous) 08/31/2023 4:21 AM CDT 08/31/2023 4:35 AM CDT Kimi Vieira M.D., M.S. LAB BLOO D ADD-ON [facility] [address] [place] [address], [facility] [address] [place] [address] * Lactate (08/30/2023 9:50 PM CDT) Pathologist [facility] Lactate, P 1.8 0.5 - 2.2 mmol/L 08/30/2023 10:09 PM CDT STMA Blood (Blood, Venous) 08/30/2023 9:50 PM CDT 08/30/2023 9:55 PM CDT Shannan Correa D.O., M.H.A. LAB BLOOD NON ADD-ON [facility] [address] [place] [address], [place] [facility] [address] [place] [address] * DX Chest AP or PA and [...] included. Ventricular Rate ECG/Min 145 BPM MUSE KS Interval 136 ms MUSE QRSD Interval 64 ms MUSE QT Interval 260 ms MUSE QTC Interval 403 ms MUSE P [place] 44 degrees MUSE R [place] 9 degrees MUSE T Wave [place] -76 degrees MUSE 08/30/2023 7:44 PM CDT [...] M.D. LAB BLOOD ADD-ON Performing Organization Address City/[facility]/ZIP Co de Phone Number [facility] 200 [place] [address], [facility] [address] [place] [address] * Magnesium (08/26/2023 3:20 AM CDT) Only the most recent of6 resultswithin the time period is included. Magnesium, S 2.1 1.7 - 2.3 mg/dL 08/26/2023 4:04 AM CDT DTL Blood (Blood, Venous) 08/26/2023 3:20 AM CDT 08/26/2023 3:50 AM CDT Boubacar Brock M.D. LAB BLOOD ADD-ON [facility] [address] [place] [address], [facility] [address] [place] [address] * (ABNORMAL) Phosphorus Inorganic (08/23/2023 9:58 PM CDT) Only the most recent of2 resultswithin the time period is included. [facility] Phosphorus (Inorganic), S 2.1(L) 2.5 - 4.5 mg/dL 08/23/2023 10:45 PM CDT DT Blood (Blood, Venous) 08/23/2023 9:58 PM CDT 08/23/2023 10:30 PM CDT Paula Hernandez M.D. LAB BLOOD ADD-ON Performing Organization Address City/[facility]/[place] [address] * Triglycerides (08/23/2023 3:42 AM CDT) Only the most recent of2 resultswithin the time period is included. [facility] Triglycerides 106 mg/dL 08/23/2023 4:50 AM CDT [facility] Comment: ----REFERENCE VALUE---- Normal: <150 mg/dL Borderline High: 150-199 mg/dL High: 200-499 mg/dL Very High: > or =500 mg/dL Fasting (8 HR or more) Yes 08/23/2023 4:19 AM CDT DT Blood (Blood, Venous) 08/23/2023 3:42 AM CDT 08/23/2023 4:19 AM CDT Boubacar Brock M.[place]. [place] [address], [place] [address] * Glucose, POCT (08/22/2023 11:38 PM CDT) [facility] Glucose, POCT, B 117 70 - 140 mg/dL 08/23/2023 1:06 AM CDT PCLX Site Capillary 08/23/2023 1:06 AM CDT PCLX Last Intake NPO 08/23/2023 1:06 AM CDT PCLX Blood 08/22/2023 11:3 8 PM CDT 08/23/2023 1:06 AM CDT Unknown Provider LAB POCT ORDERABLES- MANUAL POC [facility] [address] [place] [address], [place] PCLX [facility] [place] POC [address] [place] [address] * CT Abdomen Pelvis without IV Contrast [...] proctocolitis. Paula Hernandez M.D. [facility] PROCEDURES * Creatinine, Body Fluid (08/22/2023 [...] transport rates. All other fluids refer to www.MyDocTime.sciencebite for further interpretive information. This test has been modified from the registered veterinary technician's instructions. Its performance characteristics were determined by [facility] in a manner consistent with CLIA requirements. This test has not been cleared or approved by the U.S. Food and Drug Administration. Fluid Type, Creatinine Fluid, Abdomen 08/22/2023 3:52 PM CDT DTL Fluid (Abdomen) 08/22/2023 3 :30 PM CDT 08/22/2023 6:36 PM CDT Corin Ring M.D. LAB BODY FLUIDS AND STOOLS ORDERABLES [facility] [address] [place] [address], [facility] [address] [place] [address] * IR PICC Line Placement (08/22/2023 8:35 AM CDT) Anatomical Region Laterality Modality Chest, Pelvis, Abdomen, Vasc ular Interventional RST LOS, Vascular Interventional ARZ LOS, Vascular Interventional FLA LOS N/A X-Ray Angiography Impressions 08/22/2023 9:05 AM CDT Placement of a right IJ vein single-lumen 4 Nepalese tunneled PowerPICC ready for immediate use. NR [...] advanced into the IVC and a 4 Nepalese dilator advanced over the wire and attached to a one-way stopcock. A suitable exit site in the right anterior chest was anesthetized and a small incision made. A 4 Nepalese single-lumen PowerPICC was then tunneled from the [...] Wireadvanced into the IVC and a 4 Nepalese dilator advanced over the wire andattached to a one-way stopcock. A suitable exit site in the right anteriorchest was anesthetized and a small incision made. A 4 Nepalese single-lumen PowerPICC was then tunneled fromthe skin [...] of a right IJ vein single-lumen 4 Nepalese tunneled PowerPICCready for immediate use. NR Kimi [...] CDT Latisha Whitehead M.D. LAB BLOOD ADD-ON [facility] [address] [place] [address], [facility] DTL [facility] [address] [place] [address] * Place peripherally inserted central catheter (PICC) [...] seen on same-day CT. Rightureteral stent. Lizette N Sax-Bolder M.D. IMG DIAGNOSTIC IMAGING PROCEDURES * CT [...] and management can be found on the [employer] site. Link https://[employer]/topic/clinical-answers/cnt-77656303/cpm-204 57884 Findings discussed with ??Tayler [place], ?? ([id number]) on 08/17/2023 7:11 PM. Procedure Note Jj [...] be found on theAskMayoExpert site. Linkhttps://askmayoexpert.[facility].org/topic/clinical-answers/cnt-99243134/cpm -2049 1725 Findings discussed with Tayler [place] MD ([id number]) on 08/17/2023 7:11 PM. IMPRESSION: 1. Aging, [...] M.D. LAB BLOOD NON ADD-O N [facility] [address] [place] [address] * Patient Status (08/15/2023 11:56 AM CDT) Only the most recent of2 resultswithin the time period is included. Temperature 36.2 37.0 deg C 08/15/2023 12:04 PM CDT STMA Blood 08/15/2023 11:5 6 AM CDT 08/15/2023 12:03 PM CDT Rae Gonzalez APRN, BUSINESS COMMUNICATIONS INSTRUCTOR, DNAP LAB BLOO D NON ADD-ON Performing Organization Address City/[facility]/ZIP Co de Phone Number [facility] [address] [place] [address] * Sodium, B (08/15/2023 11:56 AM CDT) Only the most recent of2 resultswithin the time period is included. Sodium, B 135 135 - 145 mmol/L 08/15/2023 12:06 PM CDT STMA Blood (Blood, Arterial Line) 08/15/2023 11:56 AM CDT 08/15/2023 12:03 PM CDT Hayde Song M.D. LAB BLOOD NON ADD-O N [facility] [address] [place] [address] * (ABNORMAL) Blood Gas with Coox, Arterial (08/15/2023 11:56 AM CDT) Only the most recent of2 resultswithin the time period is included. Pathologist [facility] pO2 166(H) 83 - 108 mm Hg [...] M.D. LAB BLOOD NON ADD-O N [facility] [address] [place] [address], [facility] [address] [place] [address] * Potassium, Blood (08/15/2023 11:56 AM CDT) Only the most recent of2 resultswithin the time period is included. [facility] Potassium, B 4.3 3.6 - 5.2 mmol/L 08/15/2023 12:07 PM CDT STMA Blood (Blood, Arterial Line) 08/15/2023 11:56 AM CDT 08/15/2023 12:03 PM CDT Hayde Song M.D. LAB BLOOD NON ADD-O N Performing Organization Address City/[facility] Co de Phone Number [facility] [address] [place] [address], [facility] [address] [place] [address] * (ABNORMAL) Glucose, Whole Blood (08/15/2023 11:56 AM CDT) Only the most recent of2 resultswithin the time period is included. Glucose 144(H) 70 - 140 mg/dL 08/15/2023 12:06 PM CDT ST[facility] Blood (Blood, Arterial Line) 08/15/2023 11:56 AM CDT 08/15/2023 12:03 PM CDT Hayde Song M.D. LAB BLOOD ADD-ON Performing Organization Address [facility] de Phone Number [facility] [address] [place] [address], [facility] [address] [place] [address] * (ABNORMAL) Calcium, Ionized (08/15/2023 11:56 AM CDT) Only the most recent of2 resultswithin the time period is included. Calcium, Ionized, B 4.53(L) 4.65 - 5.30 mg/dL 08/15/2023 12:07 PM CDT [facility]MA Blood (Blood, Arterial Line) 08/15/2023 11:56 AM CDT 08/15/2023 12:03 PM CDT Hayde Song M.D. LAB BLOOD NON ADD-O N Performing Organization Address City/[facility] Co de Phone Number [facility] [address] [place] [address], [facility] [address] [place] [address] * [place] ARTL CATH/CNULA MONITOR PERC, [place] US GUIDE VASC ACCESS, LDA ANE ARTERIAL LINE INSERTION, MC ANE INVASIVE CATH WITH ULTRASOUND (08/15/2023 9:51 AM CDT) Narrative Rae Gonzalez APRN, GAVIN, DNAP - 08/15/2023 9:51 AM CDT Rae [...] 8:40 AM CDT) Narrative Rae Gonzalez APRN, GAVIN, DNAP - 08/15/2023 8:40 AM CDT Rae [...] ETT location: oral VL device: glide scope [place] scope blade size: 4 Tube size: 7.5 [...] Comment:Specimen Source Site : Blood Narrative [facility] - 08/20/2023 6:02 AM CDT Received Bactec aerobic and Bactec anaerobic bottles Carlos Alberto Henson M.D. LAB MICROBIOLOGY - [facility] ORDERABLES [facility] [address] [place] [address], [facility] [address] [place] [address] * (ABNORMAL) Hepatic Function Panel (08/13/2023 5:27 [...] Alberto Henson M.D. LAB BLOOD ADD-ON [facility] [address] [place] [address], [facility] [address] [place] [address] * Interpretation of Outside CT Abdomen and [...] CT Body (08/13/2023 4:35 AM CDT) Narrative II - 08/13/2023 12:29 PM CDT This order [...] Advance Directives For more information, please contact: [phone] * Full Code (Latest Code Status on File) Date Activated Date Inactivated Comments 08/30/2023 10:40 PM 09/05/2023 6:15 PM Question Answer Comments Full Code: Not Discussed Due to: Patient not available * Full Code Date Activated Date Inactivated Comments 08/13/2023 4:30 PM 08/26/2023 6:58 PM Question Answer Comments Full Code: Discussed Care Teams Population Health Manager Relationship Specialty Start Date End Date Elsewhere, Pcp PCP - General Internal Medicine 08/13/23
--- OUTSIDE RECORDS SUMMARY | 2023-10-07 12:44 | XMS_ITS ---
Author Organization [facility] Address [address] [place] [address] Care Team Providers Care Electric Truck Operator Name Role Phone Elsewhere, Pcp Primary [...] On Elapsed Days Session Dose Total Dose [id number] 04/28/2020 32 300 cGy 6,000 cGy Lifetime Dose Tracking * Chemical Lifetime Dose Automatic Entry Manual Entr y Radiation 20.4 mGy 20.4 mGy 0 mGy Fluoro Time 2.005 minutes 2.005 minutes 0 minutes DAP (uGy-m2) 479.6 uGy-m2 479.6 uGy-m2 0 uGy-m2
--- OUTSIDE RECORDS SUMMARY | 2023-10-07 12:45 | XMS_ITS | Encounter Summary ---
Author Organization [facility] Address [address] [place] [address] Care Team Providers Care Remote Ruby On Rails Developer Name Role Phone Elsewhere, Pcp Primary Care Provider Unavailabl e Reason for Visit * Reason Onset Date Comments follow up questions 09/16/2023 Encounter Details Date Type Department Care Team (Latest Contact Info) Description 09/16/2023 Clinical Communication Department of Urology in [place], [place] [address] [place] [address] Provider, Unknown follow up questions Social History Tobacco Use Types Packs/Day Years Used Date Smoking Tobacco: Never Smokeless Tobacco: Never [email or web address] Utilities Answer Date Recorded In the past 12 months has [facility] [employer], gas, oil, or water [employer] threatened to shut off services in your [...] your living situation today? I have a [facility] place to live 09/09/2023 Sex and [...] CDT Procedure visit Department of Urology in [place], [place] [address] [place] [address] Paula Hernandez M.D. 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
--- OUTSIDE RECORDS SUMMARY | 2023-10-07 12:45 | XMS_ITS | Encounter Summary ---
Author Organization [facility] Address [address] [place] [address] Care Team Providers Care Metal Drill Press Operator Name Role Phone Elsewhere, Pcp Primary Care Provider Unavailabl e Encounter Details Date Type Department Care Team (Late st Contact Info) Description 09/06/2023 Clinical Communication [facility] [address] [place] [address] Yasmine Loco Social History Tobacco Use Types Packs/Day Years Used Date Smoking Tobacco: Never Smokeless Tobacco: Never C Utilities Answer Date Recorded In the past 12 months has e [employer], gas, oil, or water [employer] threatened to shut off services in [...] living situation today? I have a [facility] place to live 09/09/2023 Sex and Gender Information Value Date Recorded Sex Assigned at Not on file Gender Identity Not on file Sexual Orientation Not on file documented as of this encounter Plan of Treatment Upcoming Encounters Date Type Department Care Team (Late st Contact Info) Description 10/14/2023 1:00 PM CDT Procedure visit Department of Urology in [place], [place] [address] [place] [address] Paula Hernandez M.D. [address] [place] [address] documented as of this encounter Visit Diagnoses Diagnosis Hematuria Gross- Primary documented in this encounter Care Teams Metal Drill Press Operator Relationship Specialty Start Date End Date Elsewhere, Pcp PCP - General Internal Medicine 08/13/23 documented as of this encounter
--- OUTSIDE RECORDS SUMMARY | 2023-10-07 12:45 | XMS_ITS | Encounter Summary ---
Author Organization [facility] Address [address] [place] [address] Care Team Providers Care Director Of Accounts Payable Name Role Phone Elsewhere, Pcp Primary Care [...] has e electric, gas, oil, or water [employer] threatened to shut off services in your [...] your living situation today? I have a [facility] place to live 09/09/2023 Sex and Gender Information Value Date Recorded Sex Assigned at Not on file Gender Identity Not on file Sexual Orientation Not on file documented as of this encounter Plan of Treatment Upcoming Encounters Date Type Department Care Team (Late st Contact Info) Description 10/14/2023 1:00 PM CDT Procedure visit Department of Urology in [place], [place] [address] [place] [address] Paula Hernandez M.D. [address] [place] [address] documented as of this encounter Procedures Procedure [...] in this encounter Care Teams Director Of Accounts Payable Relationship Specialty Start Date End Date Elsewhere, Pcp PCP - General Internal Medicine 08/13/23 documented as of this encounter
--- OUTSIDE RECORDS SUMMARY | 2023-10-07 12:45 | XMS_ITS | Encounter Summary ---
Author Organization [facility] Address [address] [place] [address] Care Team Providers Care Assistant Professor Sculpture Name Role Phone Elsewhere, Pcp Primary Care Provider Unavailabl e Reason for Referral * Outpatient (Routine) - Authorized Specialty Diagnoses / Procedures Referred By Contac t Referred To Contact Urology Diagnoses Hematuria Paula Benton M.D. [address] [place] [address] [facility] Referral ID Status Reason Start Date Expiration Date V isits Requested Visits Authorized [id number] Authorized 09/15/2023 03/16/2025 1 1 Encounter Details Date Type Department Care Team (Late st Contact Info) Description 09/15/2023 Clinical Communication [facility] [address] [place] [address] Yasmine Loco Social History Tobacco Use Types Packs/Day Years Used Date Smoking Tobacco: Never Smokeless Tobacco: Never [facility] Utilities Answer Date Recorded In the past [...] your living situation today? I have a [facility] place to live 09/09/2023 Sex and Gender Information Value Date Recorded Sex Assigned at Not on file Gender Identity Not on file Sexual Orientation Not on file documented as of this encounter Plan of Treatment Upcoming Encounters Date Type Department Care Team (Late st Contact Info) Description 10/14/2023 1:00 PM CDT Procedure visit Department of Urology in [place], [place] [address] [place] [address] Paula Hernandez M.D. [address] [place] [address] Scheduled Referrals Name Type Priority Associated Diagnoses [...] documented as of this encounter Care Teams Assistant Professor Sculpture Relationship Specialty Start Date End Date Elsewhere, Pcp PCP - General Internal Medicine 08/13/23 documented as of this encounter
--- OUTSIDE RECORDS SUMMARY | 2023-10-07 12:45 | XMS_ITS | Encounter Summary ---
Author Organization [facility] Address [address] [place] [address] Care Team Providers Care Medical Service Technician Name Role Phone Elsewhere, Pcp Primary Care Provider Unavailabl e Encounter Details Date Type Department Care Team (Late st Contact Info) Description 09/09/2023 Documentation Department of Urology in [place], [place] [address] [place] [address] Ko Victoria M.D. [address] [place] [address] Social History Tobacco Use Types Packs/Day Years Used Date Smoking Tobacco: Never Smokeless Tobacco: Never [facility] Utilities Answer Date Recorded In the past 12 months has [facility] [employer], gas, oil, or water [employer] threatened to shut off services in your [...] of Urology in [place], [place] [address] [place] [address] Paula Hernandez M.D. [address] [place] [address] documented as of this encounter Visit Diagnoses Not on filedocumented in this encounter Care Teams Medical Service Technician Relationship Specialty Start Date End Date Elsewhere, Pcp PCP - General Internal Medicine 08/13/23 documented as of this encounter
--- OUTSIDE RECORDS SUMMARY | 2023-10-07 12:45 | XMS_ITS | Encounter Summary ---
Author Organization [facility] Address [address] [place] [address] Care Team Providers Care Body Former Name Role Phone Elsewhere, Pcp Primary Care Provider Unavailabl e Encounter Details Date Type Department Care Team (Late st Contact Info) Description 09/06/2023 Orders Only Section of Hyperbaric Medicine in [place], [place] [address] [place] [address] Kira Ferraro, ARUN, C.N.P., M.S.N. [address] [place] [address] Social History Tobacco Use Types Packs/Day Years [...] your living situation today? I have a [facility] place to live 09/09/2023 Sex and Gender Information Value Date Recorded Sex Assigned at Not on file Gender Identity Not on file Sexual Orientation Not on file documented as of this encounter Plan of Treatment Upcoming Encounters Date Type Department Care Team (Late st Contact Info) Description 10/14/2023 1:00 PM CDT Procedure visit Department of Urology in [place], [place] [address] [place] [address] Paula Hernandez M.D. 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
--- OUTSIDE RECORDS SUMMARY | 2023-10-07 12:45 | XMS_ITS | Encounter Summary ---
Author Organization [facility] Address [address] [place] [address] Care Team Providers Care Rock Loader Name Role Phone Elsewhere, Pcp Primary Care Provider Unavailabl e Reason for Referral * Outpatient (Routine) - Authorized Specialty Diagnoses / Procedures Referred By Contac t Referred To Contact Diagnoses Hematuria Gross Procedures DX Chest AP or PA and Lateral 2 Views Paula Hernandez M.D. [address] [place] [address] [facility] Referral ID Status Reason Start Date Expiration Date V isits Requested Visits Authorized [id number] Authorized 09/16/2023 09/15/2024 1 1 Encounter Details Date Type Department Care Team (Late st Contact Info) Description 09/16/2023 Orders Only Department of Urology in [place], [place] [address] [place] [address] Paula Hernandez M.D. [address] [place] [address] Hematuria Gross (Primary Dx) Social History Tobacco Use Types Packs/Day Years Used Date Smoking Tobacco: Never Smokeless Tobacco: Never [facility] Utilities Answer Date Recorded In [...] living situation today? I have a [facility] place to live 09/09/2023 Sex and Gender Information Value Date Recorded Sex Assigned at Not on file Gender Identity Not on file Sexual Orientation Not on file documented as of this encounter Plan of Treatment Upcoming Encounters Date Type Department Care Team (Late st Contact Info) Description 10/14/2023 1:00 PM CDT Procedure visit Department of Urology in [place], [place] [address] [place] [address] Paula Hernandez M.D. [address] [place] [address] Scheduled Orders Name Type Priority Associated Diagnoses [...] documented as of this encounter Care Teams Rock Loader Relationship Specialty Start Date End Date Elsewhere, Pcp PCP - General Internal Medicine 08/13/23 documented as of this encounter
--- OUTSIDE RECORDS SUMMARY | 2023-10-07 12:45 | XMS_ITS | Encounter Summary ---
Author Organization [facility] Address [address] [place] [address] Care Team Providers Care Workgroup Leader Name Role Phone Elsewhere, Pcp Primary Care Provider Unavailabl e Reason for Referral * Outpatient (Routine) - Authorized Specialty Diagnoses / Procedures Referred By Contac t Referred To Contact Diagnoses Hematuria Procedures URO Urethral cath change (UCC) Paula Hernandez M.D. [address] [place] [address] [facility] Referral ID Status Reason Start Date Expiration Date V isits Requested Visits Authorized [id number] Authorized 09/15/2023 09/14/2024 1 1 * Outpatient (Routine) - Authorized Specialty Diagnoses / Procedures Referred By Contac t Referred To Contact Radiology Diagnoses Hematuria Procedures IR Nephrostomy Tube Exchange Left Paula Hernandez M.D. [address] [place] [address] [facility] Referral ID Status Reason Start Date Expiration Date V isits Requested Visits Authorized [id number] Authorized 09/15/2023 09/14/2024 1 1 Reason for Visit * Reason Comments Blood in Urine Encounter Details Date Type Department Care Team (Latest Contact Info) Description 09/09/2023 7:24 AM CDT - 09/15/2023 5:28 PM CDT Hospital Encounter [facility], [facility], Sixth Floor [address] [place] [phone] Gerri Merrill M.D., Ph.D. [address] [place] [phone] Sumit Holbrook M.D. [address] [place] [phone] Hematuria (Primary Dx) Discharge Disposition: Home or Self Care Social History Tobacco Use Types Packs/Day Years Used Date Smoking Tobacco: Never Smokeless Tobacco: Never [facility] Marakanaities Answer Date Recorded In the past 12 months has [facility] [employer], gas, oil, or water [employer] threatened to shut off services in your [...] your living situation today? I have a [facility] place to live 09/09/2023 Sex and [...] AM CDT DISCHARGE SUMMARY BRIEF OVERVIEW Hospital: [facility] Discharge Provider: Sumit Holbrook M.D. Primary Team: [facility] Urology [...] IP CONSULT TO UROLOGY IP CONSULT TO CUSTOMER CARE TEAM COACH WOUND CARE IP CONSULT TO HYPERBARIC MEDICINE IP CONSULT TO VASCULAR MEDICINE IP CONSULT TO DIETITIAN CONDITION AT DISCHARGE stable Discharge instructions were provided to the patient and caregiver(s). documented in this encounter Discharge Instructions * Discharge Instructions* Yasmine Loco - 09/09/2023 12:27 PM CDT You were discharged from the [facility] Urology Surgery - Chief A - Blue Service. Please identify this service name if you call with questions after hospitalization. * Attachments The following attachments cannot be sent through Care Everywhere. * Sulfamethoxazole/Trimethoprim (By mouth) (Nigerian) documented in this encounter Medications at Time [...] this encounter Progress Notes * Deanne Mike L.CloverSHilario., M.S.W. - 09/15/2023 12:27 PM CDT SUBJECTIVE [...] home. Social Work also sent referral to [facility] and reached out to Service [...] reviewed. GI Function: Last BM Date: 09/11/23, Cathay Stool Chart: Type 5: Soft blobs with [...] 86.8 kg (09/09/2023) Current Weight: 84.5 kg Salley Body Weight (Calculated) : 75.3 kg BMI [...] or 5%. Estimated Needs: Total Calorie Needs: 4658-3381 calories/day Method to Estimate Energy Needs: kcal/kg [...] about patient's nutritional care please contact pager [phone] on weekdays 07:30-16:00 or [phone] on weekends/holidays ([place]). * Clara Luu APRN, C.N.P., D.N.P. - [...] - 09/14/2359 09/14/23699 - 09/15/23 0659 Shift [phone] 24 Hour Total 0799-7316 [phone] 24 Hour Total INTAKE Other 30 60 [...] please contact Vascular and Interventional Radiology DEBBI ([phone]). Anticoagulation: A percutaneous nephrostomy tube is considered [...] care. Please feel free to page the [facility] Inpatient Consult Service at [phone] or the on-call resident at [phone] after 5 PM and on weekends with [...] . Neph tube clear yellow urine. I/O ([id number]): 1.9 L, 1.1 L from the neph [...] questions or concerns. Pager during business hours: [phone] Pager after hours: [phone] * Paula Hernandez M.D. - 09/13/2023 6:05 [...] in place draining clear yellow urine I/O ([id number]): Adequate urine output 2.7 L/248 1 L [...] questions or concerns. Pager during business hours: [phone] Pager after hours: [phone] * Raya Meza Pharm.D., R.Ph., [facility] - 09/12/2023 7:44 AM CDT Images from [...] follow for medicationuse optimization Pharm. YanciDJonah, R.Ph., [facility] Addendum: Heparin will be stopped on 09/13/23 [...] in place draining clear yellow urine I/O ([id number]): CBI paused for obs Labs: Hb: Hemoglobin [...] Date/Time Bacterial Culture, Aerobic + Susceptibility, Urine [[id number]] (Abnormal) (Susceptibility) Collected: 09/09/23 1128 Lab Status: [...] Susceptible Bacterial Culture, Aerobic + Susceptibility, Urine [[id number]] Collected: 09/03/23 1050 Lab Status: Final result [...] DVT - Hold Plavix and Eliquis -Bactrim [facility] Summary: Diet: regular Activity: ad kong DVT PPX: low intensity heparin drip GI PPX: none Bowel Regimen: senna, miralax IVF: none Abx/Microbiology: bactrim started 09/11 Pain Control: scheduled trospium Home Meds Resumed: enzalutamide, metoprolol, Crestor Held Home Meds: Xarelto, Plavix Consults: Vascular Medicine Paula Hernandez M.D. 09/12/2023 Please page the Urology Chief Service with questions or concerns. Pager during business hours: [phone] Pager after hours: [phone] * Js Yang M.D. - 09/11/2023 9:18 [...] [place] [phone] during business hours orat [phone] after hours. * Portillo Crespo Pharm.D., R.Ph., [...] at 0000 Mayur Collier PharmD, LUCERO, BCPS, [facility] Pager [phone] * Js Yang M.D. - 09/10/2023 9:50 [...] Service [place] [phone] during business hours orat [phone] after hours. * Quin Harrell Pharm.D., R.Ph., [...] Quin Harrell Pharm.D., R.Ph., BCPS * Jazmine Benítze R.N., C.W.C.N. - 09/09/2023 1:16 PM CDT [facility] Wound RN consulted to assess Kalen [...] None Unable to Measure N *Wound Bed Open;[place];Yellow;Fibrin/Slough Tissue Exposed None Odor None *Exudate Amount Small Drainage Description Serous;Perez Janiya-wound Assessment Intact;Fragile;[place];Purple;Maceration;White Periwound Treatment Liquid skin protectant (SurePrep) *Primary Dressing Gelling fiber/Hydrofiber (Aquacel Ag) *Primary Dressing Frequency of Change Daily & PRN *Secondary Dressing Foam (Sacral Mepilex Border) *Secondary Dressing Frequency of Change Daily & PRN Lengthy Treatment > 30 minutes > 30 minutes Ongoing management Nursing;Wound/teacher emotionally impaired Partial head to toe skin assessment completed [...] PM CDT * Raya Meza Pharm.D., R.Ph., [facility] - 09/09/2023 11:17 AM CDT Images [...] for medicationuse optimization Stephanie Meza Pharm.D., R.Ph., [facility] Admission Medication History Note Adherence issues: No concerns Medication list source: Patient, son, recent filling Hx Medication related information: Per pt, he takes amlodipine, mirabegron daily in the afternoon, around 1 to 2 pm-tucker, for no specific reasons Prior to Admission Medications Med List Status: Pharmacy Complete Set By: Raya Meza, Pharm.D., R.Ph., [facility] at 09/09/2023 11:16 AM Taking? Last Dose [...] at the time of documentation. * Paula Hernanedz M.D. - 09/09/2023 9:04 AM CDT Urology plan of care: -please place Jon catheter placement, 22F three-way catheter -please obtain bladder US -admit to urology chief a blue consult note to follow Paula Hernandez M.D. Urology PGY-2 Pager #[phone] Please page Chief Urology at [phone] from 7 AM - 5 PM or at [phone] after hours with any questions/concerns. documented in [...] reviewed. GI Function: Last BM Date: 09/11/23, Cathay Stool Chart: Type 5: Soft blobs with [...] 86.8 kg (09/09/2023) Current Weight: 84.5 kg Salley Body Weight (Calculated) : 75.3 kg BMI [...] or 5%. Estimated Needs: Total Calorie Needs: 6326-4779 calories/day Method to Estimate Energy Needs: kcal/kg [...] about patient's nutritional care please contact pager [phone] on weekdays 07:30-16:00 or [phone] on weekends/holidays ([place]). * Clara Luu, FINGERPRINTER, C.N.P., D.N.P. - 09/12/2023 11:59 AM CDTAssociated [...] admitted for CBI. He was transferred to [facility] after difficultywith irrigating his Jon [...] ABDOMEN INCISIONAL; Surgeon: Boubacar Brock M.D.; Location: [facility] ROMB OR CYSTOSCOPY CYSTOGRAM VOIDING N/A [...] and recommendations. Please feel free to page [phone] [phone] after 5 PM and on weekends with additional questions. VIR will continue to follow * Alessandra Aguero D.O. - 09/09/2023 5:26 PM CDTAssociated Order(s): IP CONSULT TO VASCULAR MEDICINE VASCULAR MEDICINE CONSULT NOTE Requesting Physician: Gerri Merrill M.D.,* SUBJECTIVE REASON FOR CONSULT: assistance with AC management, patient on plavix and eliquis admitted with refractory hematuria requing CBI. Recommend heparin drip? thanks [facility] [phone] HISTORY OF PRESENT ILLNESS Mr. Vega is [...] stents placed in total (2016, no prior MT, completed after positive stress test) Recommended for [...] for radiation proctitis SOCIAL HISTORY Lives in [place], [place] OBJECTIVE AVSS General: Lying in bed, [...] with Dr. Victoria, the chief urology resident three dimensional map modeler. Please page chief Urology Service [place] [phone] [place] [phone] after hours. Paula Hernandez M.D. 09/09/23 9:10 [...] of Shift Summary: Pt DC'd to [facility] [place] family. Patient educated on nephrostomy tube [...] documented in this encounter ED Notes * Greri Merrill M.D., Ph.D. - 09/09/2023 9:26 AM [...] Urology consulted after discussion with the catheter certified emergency vehicle technician who advised that for this patient they are required to get approval from Urologyprior to placing catheter. ED Course as of 09/09/23 0958 TueSeptember 09, 2023 0822 Hemoglobin(!): 8.9 Down from 9.6 one-week ago 0822 Leukocytes(!): 14.5 New leukocytosis with neutrophilia 0822 INR: 1.1 0823 Discussed with the catheter certified emergency vehicle technician. Bladder scan showed 125 mL. There [...] CDT Procedure visit Department of Urology in [place], [place] [address] [place] [address] Paula Hernandez M.D. [address] [place] [address] Pending Results Name Type Priority Associated Diagnoses [...] ADD-ON [facility] [address] [place] [address], [facility] DTL [facility] [address] [place] [address] * Heparin Anti-Xa Assay (09/14/2023 3:19 AM CDT) Pathologist [facility] Heparin Anti-Xa, P 0.11 IU/mL 2023 4:07 [...] Sumit Holbrook M.D. LAB BLOOD NON ADD-ON [address] [address], [facility] [address] [address] * (ABNORMAL) CBC without Differential (09/14/2023 3:19 AM CDT) [facility] Hemoglobin 10.1(L) 13.2 - 16.6 g/dL 09/14/2023 [...] BLOOD ADD-ON [facility] [address] [place] [address], [facility] DTL [facility] [address] [place] [address] * IR Nephrostomy Tube Placement Left (09/13/2023 2:20 PM CDT) Anatomical Region Laterality Modality Genito Urinary, Vascular Int erventional RST LOS, Vascular Interventional ARZ LOS, Vascular Interventional FLA LOS Left X-Ray Angiography Impressions 09/13/2023 2:33 PM CDT Left 10 Syrian percutaneous nephrostomy tube placement. EP Narrative 09/13/2023 [...] tract was further dilated and a 10 Syrian nephrostomy tube was placed with loop formed [...] sedation timewas: 9 minutes. IMPRESSION: Left 10 Syrian percutaneous nephrostomy tube placement. EP Latisha Whitehead [...] MICROBIOLOGY - GENERAL ORDERABLES Performing Organization Address City/[facility]/ZIP Co de Phone Number [facility] [address] [place] [address], [facility] [address] [place] [address] * Gram Stain (09/13/2023 2:17 PM CDT) Gram Stain No organisms seen. White blood cells, Rare 09/13/2023 9:02 PM CDT DT Fluid (Kidney, Left) 09/13/2023 2:17 PM CDT 09/13/2023 3:56 PM CDT Comment:Specimen Source Site : Fluid Latisha Whitehead M.D. LAB MICROBIOLOGY - GENERAL ORDERABLES [facility] [address] [place] [address], [facility] [address] [place] [address] * Bacterial Culture, Aerobic + Susceptibility (09/13/2023 2:17 PM CDT) Bacterial Culture, Aerobic + Susc No growth after 5 days of incubation. 09/18/2023 12:35 PM CDT DTL Fluid (Kidney, Left) 09/13/2023 2:17 PM CDT 09/13/2023 3:56 PM CDT Comment:Specimen Source Site : Fluid Latisha Whitehead M.D. LAB MICROBIOLOGY - GENERAL ORDERABLES Performing Organization Address City/[facility] Co de Phone Number [facility] [address] [place] [address], [facility] [address] [place] [address] * (ABNORMAL) CBC without Differential (09/13/2023 5:57 [...] CDT Ko Victoria M.D. LAB BLOOD ADD-ON [facility] [address] [place] [address], [facility] [address] [place] [address] * Heparin Anti-Xa Assay (09/13/2023 5:56 AM CDT) Heparin Anti-Xa, P 0.10 IU/mL 2023 7:14 AM CDT [facility] Comment: UFH therapeutic range: ?? 0.30-0.70 IU/mL [...] LAB BLOOD NON ADD-ON Performing Organization Address [facility]/ZIP Co de Phone Number [facility] [address] [place] [address], [facility] [address] [place] [address] * APTT (Activated Partial Thromboplastin Time) (09/13/2023 5:56 AM CDT) Activated Partial Thrombopl Time, P 35 25 - 37 sec 09/13/2023 7:14 AM CDT [facility] Blood (Blood, Venous) 09/13/2023 5:56 AM CDT 09/13/2023 6:53 AM CDT Sumit Holbrook M.D. LAB BLOOD ADD-ON [facility] [address] [place] [address], [facility] DTL [facility] [address] [place] [address] * (ABNORMAL) Basic Metabolic Panel (09/13/2023 5:56 AM CDT) Pathologist [facility] Potassium, S 3.7 3.6 - 5.2 mmol/L [...] LAB BLOOD ADD-ON [facility] [address] [place] [address], [facility] DTL [facility] [address] [place] [address] * NM Kidney DMSA (09/12/2023 12:21 PM [...] CDT Ko Victoria M.D. LAB BLOOD ADD-ON [facility] [address] [place] [address], [facility] DTL [facility] [address] [place] [address] * (ABNORMAL) APTT (Activated Partial Thromboplastin Time) (09/12/2023 3:42 AM CDT) Activated Partial Thrombopl Time, P 49(H) 25 - 37 sec 09/12/2023 4:35 AM CDT DTL Blood (Blood, Venous) 09/12/2023 3:42 AM CDT 09/12/2023 4:00 AM CDT Gerri Merrill M.D., Ph.D. LAB BLOOD A DD-ON [facility] [address] [place] [address], [facility] [address] [place] [address] * (ABNORMAL) Basic Metabolic Panel (09/11/2023 8:23 [...] M.D. LAB BLOOD ADD-ON Performing Organization Address [facility] Co de Phone Number [facility] [address] [place], [place] [address] DTL [facility] [address] [place] [address] * (ABNORMAL) CBC without Differential (09/11/2023 8:23 [...] M.D. LAB BLOOD ADD-ON Performing Organization Address City/[facility]/ZIP Co de Phone Number [facility] [address] [place] [address], [facility] DTL [facility] [address] [place] [address] * (ABNORMAL) APTT (Activated Partial Thromboplastin Time) (09/10/2023 11:42 PM CDT) Activated Partial Thrombopl Time, P 47(H) 25 - 37 sec 09/11/2023 2:05 AM CDT DTL Blood (Blood, Venous) 09/10/2023 11:42 PM CDT 09/11/2023 2:05 AM CDT Gerri Merrill M.D., Ph.D. LAB BLOOD A DD-ON [facility] [address] [place] [address], [place] [facility] [address] [place] [address] * US Urinary Bladder (09/10/2023 8:41 PM [...] LAB BLOOD A DD-ON Performing Organization Address [facility] Co de Phone Number [facility] [address] [place] [address], [facility] [address] [place] [address] * (ABNORMAL) APTT (Activated Partial Thromboplastin Time) (09/10/2023 10:11 AM CDT) [facility] Activated Partial Thrombopl Time, P 63(H) 25 - 37 sec 09/10/2023 10:57 AM CDT DTL Blood (Blood, Venous) 09/10/2023 10:11 AM CDT 09/10/2023 10:40 AM CDT Gerri Merrill M.D., Ph.D. LAB BLOOD A DD-ON Performing Organization Address [facility] de Phone Number [facility] [address] [place] [address], [facility] [address] [place] [address] * (ABNORMAL) CBC without Differential (09/10/2023 3:27 AM CDT) [facility] Hemoglobin 8.1(L) 13.2 - 16.6 g/dL 09/10/2023 [...] M.D. LAB BLOOD ADD-ON Performing Organization Address City/[facility]/ZIP Co de Phone Number [facility] [address] [place] [address] * (ABNORMAL) APTT (Activated Partial Thromboplastin Time) (09/10/2023 12:06 AM CDT) Activated Partial Thrombopl Time, P 57(H) 25 - 37 sec 09/10/2023 1:05 AM CDT DTL Blood (Blood, Venous) 09/10/2023 12:06 AM CDT 09/10/2023 12:33 AM CDT Gerri Merrill M.D., Ph.D. LAB BLOOD A DD-ON Performing Organization Address [facility] Co de Phone Number [facility] [address] [place] [address] * APTT (Activated Partial Thromboplastin Time) (09/09/2023 5:08 PM CDT) Activated Partial Thrombopl Time, P 31 25 - 37 sec 09/09/2023 5:24 PM CDT STMA Blood (Blood, Venous) 09/09/2023 5:08 PM CDT 09/09/2023 5:12 PM CDT Ko Victoria M.D. LAB BLOOD ADD-ON [facility] [address] [place] [address], [facility] STMA [facility] [address] [place] [address] * (ABNORMAL) Dipstick, Urine (09/09/2023 11:28 AM [...] LAB URINE ORDERA BLES Performing Organization Address City/[facility]/ZIP Co de Phone Number [facility] [address] [place] [address], [facility] DTL [facility] [address] [place] [address] * pH, Random, Urine (09/09/2023 11:28 AM CDT) pH, Random, U 6.3 4.5 - 8.0 09/09/2023 12:19 PM CDT DTL Urine 09/09/2023 11:2 8 AM CDT 09/09/2023 11:58 AM CDT Jeffery Church M.D. LAB URINE ORDERA BLES [facility] [address] [place], [place] [address] [place] [address] [facility] [address] [place] [address] * Osmolality, Urine (09/09/2023 11:28 AM CDT) Osmolality, U 380 150 - 1150 mOsm/kg 09/09/2023 12:19 PM CDT DTL Urine 09/09/2023 11:2 8 AM CDT 09/09/2023 11:58 AM CDT Jeffery Church M.D. LAB URINE ORDERA BLES [facility] [address] [place], [place] [address] [place] [address] * (ABNORMAL) Microscopic Manual (09/09/2023 11:28 AM [...] Jeffery Church M.D. LAB URINE ORDERA BLEBryon [facility] [address] [place], [place] [address] [place] [address] [address] [place] [address] * (ABNORMAL) Gram Stain, Urine (09/09/2023 11:28 AM CDT) Source Urine, Urine, Straight Catheter 09/09/2023 11:58 AM CDT DTL Gram Stain, U Positive(A) Negative 09/09/2023 12:16 PM CDT DTL Comment: Few Gram-negative bacilli ? Yeast Urine 09/09/2023 11:2 8 AM CDT 09/09/2023 11:58 AM CDT Jeffery Church M.D. LAB URINE ORDERA SHELLY [facility] [address] [place] [address], [facility] [address] [place] [address] * (ABNORMAL) Bacterial Culture, Aerobic + Susceptibility, [...] Church M.D. LAB MICROBIOLOGY - GENERAL ORDERABLES [address] [address], [facility] [place] [address] * (ABNORMAL) Urinalysis, with Microscopic: Urine, Straight [...] 09/09/2023 1:02 PM CDT DTL Predicted Range 2480-34660 mg/24 h 09/09/2023 1:02 PM CDT DTL Comment Micro done on <2.5 mL 09/09/2023 12:27 PM CDT DTL Urine (Urine, Straight Catheter) 09/09/2023 11:28 AM CDT 09/09/2023 11:58 AM CDT Jeffery Church M.D. LAB URINE ORDERA BLES [facility] [address] [place] [address], [facility] DTL [facility] [address] [place] [address] * US Kidneys Bilateral with Bladder (09/09/2023 [...] CDT Jeffery Church M.D. LAB BLOOD ADD-ON [facility] [address] [place] [address], [facility] [address] [place] [address] * (ABNORMAL) CBC with Differential, Blood (09/09/2023 [...] CDT Jeffery Church M.D. LAB BLOOD ADD-ON [facility] [address] [place] [address], [facility] STMA [facility] [address] [place] [address] [facility] [address] [place] [address] * (ABNORMAL) Basic Metabolic Panel (09/09/2023 8:04 [...] CDT Jeffery Church M.D. LAB BLOOD ADD-ON [facility] [address] [place] [address], [facility] [address] [place] [address] * Type and Screen (with Reflex Antibody [...] M.D. LAB BLOOD BANK T EST ORDERABLES [facility] [address] [place] [address], [facility] [address] [place] [address] documented in this encounter Visit Diagnoses Diagnosis [...] Provider: Leonardo Clark R.N. - Comment: With Rodirgo MCCULLOUGH) 921 (Given - Provider: Brittanie Lewis [...] R.N.) 921 (Not Given - Provider: Brittanie Lewsi R.N. - Reason: Other)2102 (Not Given - [...] patients 65 years of age or older 0573 (Given - Provider: Lilia Whitney R.N.)1259 (Given - Provider: Leonardo Clark R.N.) 0551 [...] R.N. - Comment: verified by JAMEL Rasmussen) 0565 (New Bag - Provider: Lilia Whitney R.N. [...] Lars Chavez, RRitesh.)1409 (Given - Provider: Lars Chavez, Terri.)1412 (Given - Provider: Lars Chavez R.N.) [...] documented as of this encounter Care Teams Workgroup Leader Relationship Specialty Start Date End Date Elsewhere, Pcp PCP - General Internal Medicine 08/13/23 documented as of this encounter
--- OUTSIDE RECORDS SUMMARY | 2023-10-07 12:46 | XMS_ITS | Encounter Summary ---
Author Organization [facility] Address [address] [place] [address] Care Team Providers Care Recreational Sports Director Name Role Phone Elsewhere, Pcp Primary Care Provider Unavailabl e Encounter Details Date Type Department Care Team (Late st Contact Info) Description 09/01/2023 10:05 AM CDT Ancillary Procedure Department of Nursing Social History Tobacco Use Types Packs/Day Years Used Date Smoking Tobacco: Never Smokeless Tobacco: Never [facility] Utilities Answer Date Recorded In the past 12 months has e electric, gas, oil, or water [employer] threatened to shut off services in your [...] your living situation today? I have a [facility] place to live 08/13/2023 Sex and Gender Information Value Date Recorded Sex Assigned at Not on file Gender Identity Not on file Sexual Orientation Not on file documented as of this encounter Plan of Treatment Upcoming Encounters Date Type Department Care Team (Late st Contact Info) Description 10/14/2023 1:00 PM CDT Procedure visit Department of Urology in [place], [place] [address] [place] [address] Paula Hernandez M.D. [address] [place] [address] documented as of this encounter Procedures Procedure [...] on filedocumented in this encounter Care Teams Recreational Sports Director Relationship Specialty Start Date End Date Elsewhere, Pcp PCP - General Internal Medicine 08/13/23 documented as of this encounter
--- OUTSIDE RECORDS SUMMARY | 2023-10-07 12:46 | XMS_ITS | Encounter Summary ---
Author Organization [facility] Address [address] [place] [address] Care Team Providers Care Candy Polisher Name Role Phone Elsewhere, Pcp Primary Care Provider Unavailabl e Reason for Visit * Reason Comments Urinary Problem Rapid Heart Rate Encounter Details Date Type Department Care Team (Latest Contact Info) Description 08/30/2023 7:35 PM CDT - 09/05/2023 4:09 PM CDT Hospital Encounter [facility], [facility], [facility], First Floor [address] [place] [address] Kirstin Hughes M.D. [address] [place] [phone] Mayur Alvarez M.D. [address] [place] [phone] Hematuria (Primary Dx); Tachycardia; Hematuria Gross Discharge Disposition: Home-Health Care Svc Social History Tobacco Use Types Packs/Day Years Used Date Smoking Tobacco: Never Smokeless Tobacco: Never [facility] Utilities Answer Date Recorded In the [...] [facility] place to live 09/05/2023 Sex and [...] PM CDT DISCHARGE SUMMARY BRIEF OVERVIEW Hospital: [facility] Discharge Provider: Mayur Alvarez M.D. Primary Team: [facility] Urology Surgery [...] CYSTOGRAM Mayur Alvarez M.D.White, Lindsay A, M.D. [facility] ROMB OR DISCHARGE DISPOSITION Home-Health Care [facility] [6] ACTIVE ISSUES [...] CONSULT TO CARE MANAGEMENT IP CONSULT TO ICE CREAM VAN VENDOR WOUND CARE IP CONSULT TO HYPERBARIC MEDICINE CONDITION AT DISCHARGE improved Discharge instructions were provided to the patient and caregiver(s). documented in this encounter Discharge Instructions * Patient Instructions* Carmen Louis, R.N. - 08/31/2023 9:44 AM CDT The Senior LinkAge Line?? is a service of the [place] Board on Aging in partnership with [facility] Agencies on Aging. It is a free service of the [facility] that connects older [place] and their families with the help they need. Call the Senior LinkAge Line?? at: [phone] M-F, 8am-4:30pm to connect with specialists that are available to assist you with your specific needsor check out their website at https://www.[employer] * Attachments The following attachments cannot be sent through Care Everywhere. * Cefdinir (By mouth) (Salvadorean) documented in this encounter Medications at Time [...] questions or concerns. Pager during business hours: [phone] Pager after hours: [phone] * Jeffery Valdez M.D. - 09/04/2023 10:34 [...] questions or concerns. Pager during business hours: [phone] Pager after hours: [phone] * Jeffery Valdez M.D. - 09/03/2023 4:10 [...] consider transitioning him back [facility] Summary: Diet: Regular Activity: Ad kong DVT PPX: Holding GI PPX: None Bowel Regimen: Senna, MiraLax IVF: LR 50 Abx/Microbiology: Ucx pending Pain Control: Tylenol, 2.5/5 oxycodone Home Meds Resumed: Enzalutamide, metoprolol, mirabegron, rosuvastatin, trospium Held Home Meds: Plavix, Xarelto Consults: None Jeffery Valdez M.D. 09/03/2023 10:45 AM CDT Please page the Urology Chief Service with questions or concerns. Pager during business hours: [phone] Pager after hours: [phone] * Paula Hernandez M.D. - 09/02/2023 6:25 AM CDT UROLOGY CHIEF SERVICE PROGRESS NOTE SUBJECTIVE Kalen Vgea was seen by the team during morning [...] questions or concerns. Pager during business hours: [phone] Pager after hours: [phone] * Michelle Willams R.N., C.W.C.N. - 09/01/2023 11:43 AM CDT [facility] Wound RN consulted to assess [...] Secondary Dressing Status Clean;Dry;Intact Changed by Wound air conditioner installer helper Ongoing management Nursing;Wound/safety and security manager Urine Assessment Urine Color Colorless Hematuria Scale Freeborn Urine Appearance Clear;Sediment Head to toe skin [...] update the patient. Son stated that a Technology Administrator visited the home and will be trying to assist both and patient with cares/coordination. OBJECTIVE Patient is located on [facility] room 111. Referrals were sent to the following agencies: Home Medical Care - Admitted Since 08/30/2023 Service Provider Request Status Selected Services Address Phone Fax Patient Preferred [facility] [place] Pending - Request Sent N/A [address] [facility] [address] [phone] -- [facility] Pending - Request Sent N/A [address] [facility], [facility] [address] -- Home Health Care Pending - Request Sent N/A [address] [facility] [address] [address] -- [facility] Pending - Request Sent N/A [address] [facility] [phone] -- [facility] Pending - Request Sent N/A [address] [facility] [phone] -- [facility] Pending - Request Sent N/A [address] [facility] [address] [phone] -- [facility] Home Health Declined Facility Full N/A [address] [facility] [phone] -- ASSESSMENT / PLAN ASSESSMENT Stunt Performer attempted to contact patient on room phone but was unable to get through. Case Manageras able to reach his son who will update that patient that the preferred home health agency was unable to accept and that referrals would be sent to other home health agencies. Requested services arenursing for wound care and catheter and PT/OT. PLAN Stunt Performer will follow up with referrals. Case Manger [...] questions or concerns. Pager during business hours: [phone] Pager after hours: [phone] * Paula Hernandez M.D. - 08/31/2023 10:45 [...] questions or concerns. Pager during business hours: [phone] Pager after hours: [phone] Associated attestation - Mayur Alvarez M.D. - 08/31/2023 12:14 PM CDT I agree with the Urology Chief Service plan for palliative cystoscopy under anesthesia, clot evacuation, proceed as indicated. We will plan for judicious irrigation given his recent bladder surgery and we will perform a cystogram at the end of the procedure. * Demarco Salazar, PharmJonahD., R.Ph., [facility] - 08/31/2023 7:19 AM CDT Images from [...] discontinuation of antibiotics. Pedrito Salazar Pharm.D., R.Ph., [facility] Admission Medication History Note Adherence issues: No [...] Complete Set By: Demarco Salazar Pharm.D., R.Ph., [facility] at 08/31/2023 7:22 AM Taking? [...] an 83 y.o. male transferred to the [facility] ED for further management of gross hematuria. [...] for CBI. He was then transferred to [facility] on 08/12; a CT cystogram was performed [...] was initiated on CBI and transferred to [facility] for further management. On my initial evaluation [...] for radiation proctitis SOCIAL HISTORY Lives in [place], [place] OBJECTIVE Vitals Blood pressure 134/84, pulse [...] & Screen Expiration 09/02/2023 23:59 Testing Location [facility] Imagin08/30/23 EXAM: US URINARY BLADDER COMPARISON: [...] hematuria, clot obstruction and was transferred to [facility] for further evaluation and management. Urinary bladder ultrasound showing 5 cm clot burden; catheter draining on fast-rate CBI after multiple rounds of hand irrigation. Plan - Continue CBI - Q2h hr hand irrigations - NPO overnight pending am re-evaluation - Hold Plavix, Xarelto for now The above was discussed with Drs. Venegas and Lefty, the chief urology residents polymer materials consultant. Please page chief Urology [place] [phone] [place] [phone] afterhours. documented in this encounter Procedure Notes [...] androgen deprivation therapy. 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 No scuba diving experience. Electronic health [...] prolonged inpatient stay, would request transfer to [facility] prior to initiation of hyperbaric [...] Early Screen for Discharge Planning Referral Name: [facility] 11 Referral Reason: Discharge Planning Primary Language: Salvadorean Braze Operator Services Used: No Person(s) present during interview: [...] Communication: Can write, Talks, Understands speaking, Understands Salvadorean, Reads Shopping: Needs assistance Medication Management: Independent Housekeeping: Needs assistance Meal Prep: Independent Assistive Devices: Walker - front wheeled, Eyeglasses, Hearing aid(s) Agency Name: [facility] Provided: [facility]/PT/OT Transportation: Support from family Baseline Services/Resources Primary care clinic and provider: ELSEWHERE, PCP Additional Resources: N/A Anticipated Needs Functional Status: Housekeeping, Shopping, Transportation use (drive car, use taxi/bus), Mobility, Transfer to/from bed, chair, etc., Bathing Assistive Devices: Eyeglasses, Hearing aid(s), Walker - front wheeled Services/Resources: Home health Agency Name: [facility] Provided: [facility]/PT/OT Anticipated Modifications to the Patient's Home: None Transportation Needs: Support from family Does the patient need discharge transport arranged?: No Anticipated Discharge Destination: Home-Health Care [facility] ASSESSMENT / PLAN Assessment: The radiology therapist met with Kalen Vega to discuss his current hospitalization and home goingneeds. The patient was accompanied by son, Kar . The patient was a reliable historian. The role ofRN Stunt Performer was reviewed. The patient reviewed his prior level of care and support system. The patient receives support from his and children. The patient described his living environment as a home with bedroom and bathroom on same floor withstairs to enter with rails. Housekeeping, grocery shopping, meal prep, and other household responsibilities have previously been completed by patient and patient's son. radiology therapist discussed the patient's potential needs at dismissal based on their home setting, previous needs and responsibilities, homebound status, and relevant assessments with the patient. The patient will be safe and supported to return home with [facility] or previous services noted above when [...] [facility] care. Patient stated that [employer] was supposed to be set- up at discharge after the last hospital stay but that the company never received orders to start care and that he was told by nursing that due to his PICC removal he would not need care. Stunt Performer will clarifywith home health team regarding if [...] chart and meeting with the patient, the radiology therapist deemed the LACE+/readmission questions were appropriate. The [...] current readmission could have been prevented. The radiology therapist will share this information with the care team. The patient reports understanding that he will dismiss from the hospital when medically stable. Thefollowing potential barriers to dismissal have been identified: Home Health Care Addendum 1230: Stunt Performer called [facility]. They received the referral but declined due to being at capacity. Plan: The patient agrees with the following plan. Patient's anticipated discharge disposition is: Home with Home Healthcare Referrals sent. Transportation upon dismissal will be provided by family--Kar . radiology therapist recommended home health services. radiology therapist provided information regarding the dismissal process and the Senior Linkage Line ([place] Board on Aging) handout. radiology therapist placed or requested the following hospital-based consult orders and/or referrals: None. radiology therapist will follow up with the patient to [...] with updates and/or transition plan to come. radiology therapist encouraged the patient to reach out with [...] CDT Pre-op Diagnosis Hematuria Post-op Diagnosis Hematuria Die Hardener A respiratory equipment assistant actively participated and was necessary for [...] or filling defects. 5. Placement of [address] catheter with 20 cc in [...] The resectoscope was removed and a [address] catheter was placed with 20 [...] secondary to cystostomy closure presenting today from [facility] with concerns for worsening hematuria. He was [...] 08/30/2023 8:48 AM CDT Pt transferred from [facility] via EMS, pt c/o blocked jon cath that started today. Pt had a right uretal stent exchange and an open bladder repair 08/15/23 and was discharged 08/25. Pt had a3 way jon placed at [facility], and transferred here because the clots returned. [...] RN, CPN, CCDS, CCS, CRC Clinical Documentation Scarifier Operator Query created by: ELMER Barker, RN, [...] CDT Procedure visit Department of Urology in [place], [place] [address] [place] [address] Paula Hernandez M.D. [address] [place] [address] Pending Results Name Type Priority Associated Diagnoses [...] CDT Roxy Romero M.D. LAB BLOOD ADD-ON [facility] [address] [place] [address], [facility] DTL [facility] [address] [place] [address] * (ABNORMAL) Basic Metabolic Panel (09/05/2023 4:52 [...] Jakob De Paz M.D. LAB BLOOD ADD-ON [facility] [address] [place] [address], [facility] [address] [place] [address] * (ABNORMAL) Basic Metabolic Panel (09/04/2023 8:15 [...] CDT Jeffery Valdez M.D. LAB BLOOD ADD-ON [address] [address], [facility] [address] [place] [address] * (ABNORMAL) CBC without Differential (09/04/2023 8:15 [...] x10(9)/L 09/04/2023 9:19 PM CDT [facility] Blood (Blood, Venous) 09/04/2023 8:15 PM CDT 09/04/2023 8:52 PM CDT Jeffery Valdez M.D. LAB BLOOD ADD-ON [facility] [address] [place] [address], [facility] [address] [place] [address] * Transfuse Red Blood Cells : (09/04/2023 3:30 PM CDT) Jeffery Valdez M.D. BLOOD TRANSFUSION OR DERABLES * Transfuse Red Blood Cells : , 1 Units (09/04/2023 3:30 PM CDT) Jeffery Valdez M.D. BLOOD TRANSFUSION OR DERABLES * Type and Screen (with Reflex Antibody ID) (09/04/2023 10:59 AM CDT) Pathologist [facility] ABORh O Pos Not applicable 09/04/2023 11:46 AM CDT STRM Antibody Screen Negative Negative 09/04/2023 11:59 AM CDT STRM Type & Screen Expiration 09/07/2023 23:59 09/04/2023 11:46 AM CDT STRM Testing Location [facility] DEFAULT 09/04/2023 11:21 AM CDT STRM Blood (Blood, Venous) 09/04/2023 10:59 AM CDT 09/04/2023 11:21 AM CDT Jeffery Valdez M.D. LAB BLOOD BANK TEST ORDERABLES [facility] [address] [place] [address], [facility] STRM [facility] [address] [place] [address] * Heparin Anti-Xa Assay (09/04/2023 7:34 AM [...] BLOOD NON A DD-ON Performing Organization Address [facility] Co de Phone Number [facility] [address] [place] [address], [facility] [address] [place] [address] * (ABNORMAL) CBC without Differential (09/04/2023 7:34 [...] M.D. LAB BLOOD ADD-ON Performing Organization Address [facility]/ZIP Co de Phone Number [facility] [address] [place] [address], [facility] [address] [place] [address] * Heparin Anti-Xa Assay (09/04/2023 12:30 AM [...] BLOOD NON A DD-ON Performing Organization Address [facility] Co de Phone Number [facility] [address] [place], [place] [phone] [place] [address] [facility] [address] [place] [address] * Bacterial Culture, Aerobic + Susceptibility, Urine (09/03/2023 10:50 AM CDT) [facility] Urine Culture No growth after 1 day of incubation. 09/04/2023 8:52 AM CDT DTL Urine (Urine, Indwelling Catheter) 09/03/2023 10:50 AM CDT 09/03/2023 11:53 AM CDT Comment:Specimen Source Site : Urine Jeffery Valdez M.D. LAB MICROBIOLOGY - G ENERAL ORDERABLES [facility] [address] [place] [address], [facility] [address] [place] [address] * (ABNORMAL) CBC without Differential (09/03/2023 3:29 AM CDT) [facility] Hemoglobin 8.0(L) 13.2 - 16.6 g/dL 09/03/2023 [...] LAB BLOOD ADD-ON Performing Organization Address City/[facility]/ZIP Co de Phone Number [facility] [address] [place], [place] [phone] [place] [address] [place] [address] * Heparin Anti-Xa Assay (09/03/2023 3:29 AM [...] BLOOD NON A DD-ON Performing Organization Address City/[facility]/ZIP Co de Phone Number [facility] [address] [place] [address], [facility] [address] [place] [address] * Heparin Anti-Xa Assay (09/02/2023 2:57 AM [...] Alvarez M.D. LAB BLOOD NON A DD-ON [facility] [address] [place] [address], [facility] [address] [place] [address] * (ABNORMAL) CBC without Differential (09/01/2023 8:16 PM CDT) Pathologist [facility] Hemoglobin 8.5(L) 13.2 - 16.6 g/dL 09/01/2023 [...] M.D. LAB BLOOD ADD-ON Performing Organization Address [facility] Co de Phone Number [facility] [address] [place] [address], [facility] [address] [place] [address] * Heparin Anti-Xa Assay (09/01/2023 6:50 PM [...] BLOOD NON A DD-ON Performing Organization Address [facility] Co de Phone Number [facility] [address] [place] [address], [facility] [address] [place] [address] * APTT (Activated Partial Thromboplastin Time) (09/01/2023 9:05 AM CDT) Activated Partial Thrombopl Time, P 28 25 - 37 sec 09/01/2023 9:35 AM CDT [facility] Blood (Blood, Venous) 09/01/2023 9:05 AM CDT 09/01/2023 9:21 AM CDT Paula Hernandez M.D. LAB BLOOD ADD-ON Performing Organization Address City/[facility] Co de Phone Number [facility] [address] [place] [address], [facility] STMA [facility] [address] [place] [address] * (ABNORMAL) Basic Metabolic Panel (08/31/2023 9:36 PM CDT) Pathologist [facility] Potassium, S 4.0 3.6 - 5.2 mmol/L [...] CDT Paula Hernandez M.D. LAB BLOOD ADD-ON [facility] [address] [place] [address], [facility] DTL [facility] [address] [place] [address] * (ABNORMAL) CBC without Differential (08/31/2023 9:36 [...] CDT Paula Hernandez M.D. LAB BLOOD ADD-ON [facility] [address] [place] [address], [facility] [address] [address] * [place] Fluoro Less Than 1 Hour [...] * (ABNORMAL) Hemoglobin (08/31/2023 4:21 AM CDT) [facility] Hemoglobin 7.8(L) 13.2 - 16.6 g/dL 08/31/2023 4:47 AM CDT DTL Blood (Blood, Venous) 08/31/2023 4:21 AM CDT 08/31/2023 4:35 AM CDT Kimi Vieira M.D., M.S. LAB BLOO D ADD-ON [facility] [address] [facility] [address] [place] [address] * Type and Screen (with Reflex Antibody ID) (08/30/2023 9:50 PM CDT) [facility] ABORh O Pos Not applicable 08/30/2023 10:17 PM CDT STRM Antibody Screen Negative Negative 08/30/2023 10:31 PM CDT STRM Type & Screen Expiration 09/02/2023 23:59 08/30/2023 10:17 PM CDT STRM Testing Location [facility] DEFAULT 08/30/2023 9:58 PM CDT STRM Blood (Blood, Venous) 08/30/2023 9:50 PM CDT 08/30/2023 9:58 PM CDT Shannan Correa D.O., M.H.A. LAB BLOOD BANK TEST ORDERABLES [facility] [address] [place] [address], [facility] STRM [facility] [address] [place] [address] * Lactate (08/30/2023 9:50 PM CDT) [facility] Lactate, P 1.8 0.5 - 2.2 mmol/L 08/30/2023 10:09 PM CDT [facility] Blood (Blood, Venous) 08/30/2023 9:50 PM CDT 08/30/2023 9:55 PM CDT Shannan Correa D.O. M.H.A. LAB BLOOD NON ADD-ON [facility] [address] [place] [address], [facility] STMA [facility] [address] [place] [address] * (ABNORMAL) Basic Metabolic Panel (08/30/2023 9:49 [...] Correa D.O. M.H.A. LAB BLOOD ADD- ON [facility] [address] [place] [address], [facility] STMA [facility] [address] [place] [address] * (ABNORMAL) CBC with Differential, Blood (08/30/2023 [...] Correa D.O., M.H.A. LAB BLOOD ADD- ON [facility] [address] [place] [address], [facility] STMA [facility] [address] [place] [address] [facility] [address] [place] [address] * DX Chest AP or PA and [...] CDT) Ventricular Rate ECG/Min 145 BPM MUSE NV Interval 136 ms MUSE QRSD Interval 64 ms MUSE QT Interval 260 ms MUSE QTC Interval 403 ms MUSE P [place] 44 degrees MUSE R [place] 9 degrees MUSE T Wave [place] -76 degrees MUSE 08/30/2023 7:44 PM CDT [...] give total of 40 mEq Dissolve per payroll technician recommendations. Do NOT chew or swallow tablet., [...] Sarah Morgan RJonahNJonah - Reason: See Provider Order)7401 (Unheld by provider - Provider: Jeffery Valdez [...] give total of 40 mEq Dissolve per payroll technician recommendations. Do NOT chew or swallow tablet., Monitor the following for replacement: Potassium, Replace Potassium per: Standard Schedule 2337 (Given - Provider: Merlyn Treadwell R.N.) rivaroxaban tablet 10 mg (XARELTO) [...] intravenous, As needed, antiXa 0.1-0.19, Starting on [facility] 09/03/23 at 1608, Intensity type: Moderate, Anti-Xa < 0.1: Loading Dose (Units/kg): 60, Anti-Xa 0.1-0.19: Loading Dose (Units/kg): 30, Anti-Xa > 0.19: Loading Dose (Units/kg): 0 Or heparin (porcine) 1,000 unit/mL injection 5,500 Units (CANCELED) 5,500 Units (rounded from 5,544 Units = 60 Units/kg ? 92.4 kg), intravenous, As needed, antiXa less than 0.1, Starting on [facility] 09/03/23 at 1608, Intensity [...] 2256 documented in this encounter Care Teams Candy Polisher Relationship Specialty Start Date End Date Elsewhere, Pcp PCP - General Internal Medicine 08/13/23 documented as of this encounter
--- OUTSIDE RECORDS SUMMARY | 2023-10-07 12:46 | XMS_ITS | Encounter Summary ---
Author Organization [facility] Address [address] [place] [address] Care Team Providers Care Dye House Helper Name Role Phone Elsewhere, Pcp Primary Care Provider Unavailabl e Encounter Details Date Type Department Care Team (Late st Contact Info) Description 08/26/2023 Orders Only Department of Urology in [place], [place] [address] [place] [address] Paula Hernandez M.D. [address] [place] [address] Social History Tobacco Use Types Packs/Day Years Used Date Smoking Tobacco: Never Smokeless Tobacco: Never [facility] Utilities Answer Date Recorded In the past 12 months has [facility] electric, gas, oil, or water [employer] threatened to shut off services in your [...] a [facility] place to live 08/13/2023 Sex and Gender Information Value Date Recorded Sex Assigned at Not on file Gender Identity Not on file Sexual Orientation Not on file documented as of this encounter Plan of Treatment Upcoming Encounters Date Type Department Care Team (Late st Contact Info) Description 10/14/2023 1:00 PM CDT Procedure visit Department of Urology in [place], [place] [address] [place] [address] Paula Hernandez M.D. [address] [place] [address] documented as of this encounter Visit Diagnoses Not on filedocumented in this encounter Care Teams Dye House Helper Relationship Specialty Start Date End Date Elsewhere, Pcp PCP - General Internal Medicine 08/13/23 documented as of this encounter
--- OUTSIDE RECORDS SUMMARY | 2023-10-07 12:46 | XMS_ITS | Encounter Summary ---
Author Organization [facility] Address [address] [place] [address] Care Team Providers Care Software Tools Engineer Name Role Phone Elsewhere, Pcp Primary Care Provider Unavailabl e Encounter Details Date Type Department Care Team (Latest Contact Info) Description 08/30/2023 Intake [facility] Social History Tobacco Use Types Packs/Day Years Used Date Smoking Tobacco: Never Smokeless Tobacco: Never [facility] Utilities Answer Date Recorded [...] your living situation today? I have a [facility] place to live 08/13/2023 Sex and Gender Information Value Date Recorded Sex Assigned at Not on file Gender Identity Not on file Sexual Orientation Not on file documented as of this encounter Plan of Treatment Upcoming Encounters Date Type Department Care Team (Late st Contact Info) Description 10/14/2023 1:00 PM CDT Procedure visit Department of Urology in [place], [place] [address] [place] [address] Paula Hernandez M.D. 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
--- OUTSIDE RECORDS SUMMARY | 2023-10-07 12:46 | XMS_ITS | Encounter Summary ---
Author Organization [facility] Address [address] [place] [address] Care Team Providers Care Lining Cleaner Name Role Phone Elsewhere, Pcp Primary Care [...] has e electric, gas, oil, or water [email or web address] threatened to shut off services in your [...] living situation today? I have a [facility] place to live 08/13/2023 Sex and Gender Information Value Date Recorded Sex Assigned at Not on file Gender Identity Not on file Sexual Orientation Not on file documented as of this encounter Plan of Treatment Upcoming Encounters Date Type Department Care Team (Late st Contact Info) Description 10/14/2023 1:00 PM CDT Procedure visit Department of Urology in [place], [place] [address] [place] [address] Paula Hernandez M.D. [address] [place] [address] documented as of this encounter Procedures Procedure [...] on filedocumented in this encounter Care Teams Lining Cleaner Relationship Specialty Start Date End Date Elsewhere, Pcp PCP - General Internal Medicine 08/13/23 documented as of this encounter
--- OUTSIDE RECORDS SUMMARY | 2023-10-07 12:46 | XMS_ITS | Encounter Summary ---
Author Organization [facility] Address [address] [place] [address] Care Team Providers Care Manpower Development Advisor Name Role Phone Elsewhere, Pcp Primary Care Provider Unavailabl e Encounter Details Date Type Department Care Team (Late st Contact Info) Description 08/30/2023 Documentation Department of Urology in [place], [place] [address] [place] [address] Corin Ring M.D. [address] [place] [address] Social History Tobacco Use Types Packs/Day Years Used Date Smoking Tobacco: Never Smokeless Tobacco: Never [facility] Utilities Answer Date Recorded In the past 12 months has [facility] [employer], gas, oil, or water [employer] threatened to shut off services in your [...] CDT Procedure visit Department of Urology in [place], [place] [address] [place] [address] Paula Hernandez M.D. [address] [place] [address] documented as of this encounter Visit Diagnoses Not on filedocumented in this encounter Care Teams Manpower Development Advisor Relationship Specialty Start Date End Date Elsewhere, Pcp PCP - General Internal Medicine 08/13/23 documented as of this encounter
--- OUTSIDE RECORDS SUMMARY | 2023-10-07 12:46 | XMS_ITS | Encounter Summary ---
Author Organization [facility] Address [address] [place] [address] Care Team Providers Care Gas Fitter Name Role Phone Elsewhere, Pcp Primary Care Provider Unavailabl e Reason for Visit * Reason Comments Urinary Problem Rapid Heart Rate Encounter Details Date Type Department Care Team (Late st Contact Info) Description 08/31/2023 12:36 PM CDT - 08/31/2023 2:31 PM CDT Surgery RST ROMB MAIN OR [address] [place] [address] Myaur Alvarez M.D. [address] [place] [address] CYSTOSCOPY EVACUATION CLOTS Social History Tobacco Use Types Packs/Day Years Used Date Smoking Tobacco: Never Smokeless Tobacco: Never [facility] Utilities Answer Date Recorded In [...] your living situation today? [facility] 08/13/2023 Sex and [...] PM CDT DISCHARGE SUMMARY BRIEF OVERVIEW Hospital: [facility] Discharge Provider: Mayur Alvarez M.D. Primary [...] CYSTOGRAM Mayur Alvarez M.D.White, Lindsay A, M.D. [facility] ROMB OR DISCHARGE DISPOSITION [facility] [...] CONSULT TO CARE MANAGEMENT IP CONSULT TO REGIONAL CLINICAL RESEARCH ASSOCIATE WOUND CARE IP CONSULT TO HYPERBARIC MEDICINE CONDITION AT DISCHARGE improved Discharge instructions were provided to the patient and caregiver(s). documented in this encounter Discharge Instructions * Patient Instructions* Carmen Louis, R.N. - 08/31/2023 9:44 AM CDT The Senior LinkAge Line?? is a service of the [place] Board on Aging in partnership with [place]'s Area Agencies on Aging. It is a free service of the [facility] that connects older [place] and their families with the help they need. Call the Senior LinkAge Line?? at: [phone] M-F, 8am-4:30pm to connect with specialists that are available to assist you with your specific needsor check out their website at https://www.SKINNYprice.com * Attachments The following attachments cannot be sent through Care Everywhere. * Cefdinir (By mouth) (Turkmen) documented in this encounter Medications at Time [...] questions or concerns. Pager during business hours: [phone] Pager after hours: [phone] * Jeffery Valdez M.D. - 09/04/2023 10:34 [...] questions or concerns. Pager during business hours: [phone] Pager after hours: [phone] * Jeffery Valdez M.D. - 09/03/2023 4:10 [...] consider [facility]ing [facility]: Diet: Regular Activity: Ad [...] questions or concerns. Pager during business hours: [phone] Pager after hours: [phone] * Paula Hernandez M.D. - 09/02/2023 6:25 [...] questions or concerns. Pager during business hours: [phone] Pager after hours: [phone] * Michelle Willams, Terri., C.W.C.N. - 09/01/2023 11:43 AM CDT [facility] Wound RN consulted to [...] Secondary Dressing Status Clean;Dry;Intact Changed by Wound magistrate Ongoing management Nursing;Wound/quality assurance technician Urine Assessment Urine Color Colorless Hematuria Scale Toole Urine Appearance Clear;Sediment Head to toe skin [...] update the patient. Son stated that a Scrubbing Machine Operator visited the home and will be trying to assist both and patient with cares/coordination. OBJECTIVE Patient is [facility] room 111. Referrals were sent to the following agencies: Home Medical Care - Admitted Since 08/30/2023 Service Provider Request Status Selected Services Address Phone Fax Patient Preferred [facility] [place] Pending - Request Sent N/A [address], [facility] [phone] -- [facility] Home Care Pending - Request Sent N/A [address], [facility] [address] [phone] -- Home Health Care Pending - Request Sent N/A [address], [facility] [address] -- [facility] Pending - Request Sent N/A [address] [facility] [phone] -- [facility] Pending - Request Sent N/A [address] [facility] [phone] -- [facility] Pending - Request Sent N/A [address] [facility] [address], [facility] [phone] -- [facility] Home Health Declined Facility Full N/A [address] [facility] [phone] -- ASSESSMENT / PLAN ASSESSMENT Frame Changer attempted to contact patient on room phone but was unable to get through. Case Manageras able to reach his son who will update that patient that the preferred home health agency was unable to accept and that referrals would be sent to other home health agencies. Requested services arenursing for wound care and catheter and PT/OT. PLAN Frame Changer will follow up with referrals. Case Manger [...] questions or concerns. Pager during business hours: [phone] Pager after hours: [phone] * Paula Hernandez M.D. - 08/31/2023 10:45 [...] questions or concerns. Pager during business hours: [phone] Pager after hours: [phone] Associated attestation - Mayur Alvarez M.D. - 08/31/2023 12:14 PM CDT I agree with the Urology Chief Service plan for palliative cystoscopy under anesthesia, clot evacuation, proceed as indicated. We will plan for judicious irrigation given his recent bladder surgery and we will perform a cystogram at the end of the procedure. * Demarco Salazar PharmJonahD., R.Ph., [facility] - 08/31/2023 7:19 AM CDT Images from [...] discontinuation of antibiotics. Pedrito Salazar Pharm.D., R.Ph., [facility] Admission Medication History Note Adherence issues: No [...] Complete Set By: Demarco Salazar, Karyn, R.Ph., [facility] at 08/31/2023 7:22 AM Taking? Last Dose [...] an 83 y.o. male transferred to the [facility] ED for further management of gross hematuria. [...] for CBI. He was then transferred to [facility] on 08/12; a CT cystogram was performed [...] was initiated on CBI and transferred to [facility] for further management. On my initial evaluation [...] for radiation proctitis SOCIAL HISTORY Lives in [place], [place] OBJECTIVE Vitals Blood pressure 134/84, pulse [...] & Screen Expiration 09/02/2023 23:59 Testing Location [facility] Imagin08/30/23 EXAM: US URINARY BLADDER COMPARISON: CT [...] hematuria, clot obstruction and was transferred to [facility] for further evaluation and management. Urinary bladder ultrasound showing 5 cm clot burden; catheter draining on fast-rate CBI after multiple rounds of hand irrigation. Plan - Continue CBI - Q2h hr hand irrigations - NPO overnight pending am re-evaluation - Hold Plavix, Xarelto for now The above was discussed with Drs. Venegas and Lefty, the chief urology residents reception interviewer. Please page chief Urology [place] [phone] [place] [phone] afterhours. documented in this encounter Procedure Notes [...] androgen deprivation therapy. 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 on [...] prolonged inpatient stay, would request transfer to [facility] prior to initiation of hyperbaric [...] 11 Referral Reason: Discharge Planning Primary Language: Turkmen Theatre Manager Services Used: No Person(s) present during interview: Person(s) Present During Interview: patient and child Kar History of Present Illness #1 Hematuria Social History Support System: spouse, children, and home care staff Primary Caregiver: self and family Finance/Insurance Primary insurance: MEDICARE A AND B Secondary insurance: AqwiseA benefits: No Advance Directives Legal Decision Maker: Self Advance Directives: N/A Advance Directives Status: N/A OBJECTIVE Baseline Functional Status Baseline Activities of Daily Living Mobility: Requires aide of device Dressing: Independent Feeding: Independent Bathing: Independent Grooming: Independent Toileting: Independent Behavior: Appropriate, Pleasant, Calm, Cooperative, Oriented Communication: Can write, Talks, Understands speaking, Understands Turkmen, Reads Shopping: Needs assistance Medication Management: Independent Housekeeping: Needs assistance Meal Prep: Independent Assistive Devices: Walker - front wheeled, Eyeglasses, Hearing aid(s) Agency Name: [facility] Provided: Chcf/PT/OT Transportation: Support from family Baseline Services/Resources Primary care clinic and provider: ELSEWHERE, PCP Additional Resources: N/A Anticipated Needs Functional Status: Housekeeping, Shopping, Transportation use (drive car, use taxi/bus), Mobility, Transfer to/from bed, chair, etc., Bathing Assistive Devices: Eyeglasses, Hearing aid(s), Walker - front wheeled Services/Resources: Home health Agency Name: [facility] Provided: Chcf/PT/OT Anticipated Modifications to the Patient's Home: None Transportation Needs: Support from family Does the patient need discharge transport arranged?: No Anticipated Discharge Destination: [facility]-Health [facility] [place]MENT / PLAN Assessment: The desizing machine back tender met with Kalen Vega to discuss his current hospitalization and home goingneeds. The patient was accompanied by son, Kar . The patient was a reliable historian. The role ofRN Frame Changer was reviewed. The patient reviewed his prior level of care and support system. The patient receives support from his and children. The patient described his living environment as a home with bedroom and bathroom on same floor withstairs to enter with rails. Housekeeping, grocery shopping, meal prep, and other household responsibilities have previously been completed by patient and patient's son. desizing machine back tender discussed the patient's potential needs at dismissal based on their home setting, previous needs and responsibilities, homebound status, and relevant assessments with the patient. The patient will be safe and supported to return home with [facility] or previous services noted above when [...] PICC removal he would not need care. Frame Changer will clarifywith home health team regarding if [...] chart and meeting with the patient, the desizing machine back tender deemed the LACE+/readmission questions were appropriate. The [...] current readmission could have been prevented. The desizing machine back tender will share this information with the care team. The patient reports understanding that he will dismiss from the hospital when medically stable. Thefollowing potential barriers to dismissal have been identified: Home Health Care Addendum 1230: Frame Changer [facility] They received the referral but declined due to being at capacity. Plan: The patient agrees with the following plan. Patient's anticipated discharge disposition is: Home with Home Healthcare Referrals sent. Transportation upon dismissal will be provided by family--Kar . desizing machine back tender recommended home health services. desizing machine back tender provided information regarding the dismissal process and the Senior Linkage Line ([place]) handout. desizing machine back tender placed or requested the following hospital-based consult orders and/or referrals: None. desizing machine back tender will follow up with the patient to [...] with updates and/or transition plan to come. desizing machine back tender encouraged the patient to reach out with [...] CDT Pre-op Diagnosis Hematuria Post-op Diagnosis Hematuria Precision Honer A water quality assistant actively participated and was necessary for [...] or filling defects. 5. Placement of [address] catheter with 20 cc in [...] The resectoscope was removed and a [address] catheter was placed with 20 [...] secondary to cystostomy closure presenting today from [facility] with concerns for worsening hematuria. He was [...] 08/30/2023 8:48 AM CDT Pt transferred from [facility] via EMS, pt c/o blocked jon cath that started today. Pt had a right uretal stent exchange and an open bladder repair 08/15/23 and was discharged 08/25. Pt had a3 way jon placed at [facility], and transferred here because the clots returned. [...] RN, CPN, CCDS, CCS, CRC Clinical Documentation Feed Crusher Operator Query created by: ELMER Barker, RN, [...] CDT Procedure visit Department of Urology in [place], [place] [address] [place] [address] Paula Hernandez M.D. [address] [place] [address] Pending Results Name Type Priority Associated Diagnoses [...] CDT Roxy Romero M.D. LAB BLOOD ADD-ON [facility] [address] [place] [address], [facility] [address] [place] [address] * (ABNORMAL) Basic Metabolic Panel (09/05/2023 4:52 [...] Jakob De Paz M.D. LAB BLOOD ADD-ON [address] [address], [facility] [address] [place] [address] * (ABNORMAL) Basic Metabolic Panel (09/04/2023 8:15 [...] CDT Jeffery Valdez M.D. LAB BLOOD ADD-ON [address] [address], [address] [address] * (ABNORMAL) CBC without Differential (09/04/2023 8:15 [...] - 317 x10(9)/L 09/04/2023 9:19 PM CDT [facility] Leukocytes 7.5 3.4 - 9.6 x10(9)/L 09/04/2023 9:19 PM CDT [facility] Blood (Blood, Venous) 09/04/2023 8:15 PM CDT 09/04/2023 8:52 PM CDT Jeffery Valdez M.D. LAB BLOOD ADD-ON [facility] [address] [place] [address], [facility] [address] [place] [address] * Transfuse Red Blood Cells : (09/04/2023 3:30 PM CDT) Jeffery Valdez M.D. BLOOD TRANSFUSION OR DERABLES * Transfuse Red Blood Cells : , 1 Units (09/04/2023 3:30 PM CDT) Jeffery Valdez M.D. BLOOD TRANSFUSION OR DERABLES * Type and Screen (with Reflex Antibody ID) (09/04/2023 10:59 AM CDT) [facility] O Pos Not applicable 09/04/2023 11:46 AM CDT STRM Antibody Screen Negative Negative 09/04/2023 11:59 AM CDT STRM Type & Screen Expiration 09/07/2023 23:59 09/04/2023 11:46 AM CDT STRM Testing Location [facility] DEFAULT 09/04/2023 11:21 AM CDT STR Blood (Blood, Venous) 09/04/2023 10:59 AM CDT 09/04/2023 11:21 AM CDT Jeffery Valdez M.D. LAB BLOOD BANK TEST ORDERABLES [facility] [address] [place] [address], [place] [facility] [address] [place] [address] * Heparin Anti-Xa Assay (09/04/2023 7:34 AM CDT) Pathologist [facility] Heparin Anti-Xa, P 0.12 IU/mL 2023 8:14 [...] Alvarez M.D. LAB BLOOD NON A DD-ON [place] [address] [place] [address], [facility] [place] [address] * (ABNORMAL) CBC without Differential (09/04/2023 7:34 AM CDT) Pathologist [facility] Hemoglobin 7.7(L) 13.2 - 16.6 g/dL 09/04/2023 [...] M.D. LAB BLOOD ADD-ON Performing Organization Address City/[facility]/ZIP Co de Phone Number [facility] [address] [place] [address] * Heparin Anti-Xa Assay (09/04/2023 12:30 AM CDT) Pathologist [facility] Heparin Anti-Xa, P 0.27 IU/mL 2023 1:21 [...] NON A DD-ON Performing Organization Address [facility] Co de Phone Number [facility] [address] [place] [address], [facility] [address] [place] [address] * Bacterial Culture, Aerobic + Susceptibility, Urine (09/03/2023 10:50 AM CDT) Pathologist [facility] Urine Culture No growth after 1 day of incubation. 09/04/2023 8:52 AM CDT DTL Urine (Urine, Indwelling Catheter) 09/03/2023 10:50 AM CDT 09/03/2023 11:53 AM CDT Comment:Specimen Source Site : Urine Jeffery Valdez M.D. LAB MICROBIOLOGY - G ENERAL ORDERABLES Performing Organization Address City/[facility] Co de Phone Number [facility] [address] DTL [facility] [address] [place] [address] * (ABNORMAL) CBC without Differential (09/03/2023 3:29 AM CDT) Pathologist [facility] Hemoglobin 8.0(L) 13.2 - 16.6 g/dL [...] [facility] [address] [place], [place] [phone] [place] [address] DTL [facility] [address] [place] [address] * Heparin Anti-Xa Assay (09/03/2023 3:29 AM [...] Alvarez M.D. LAB BLOOD NON A DD-ON [facility] [address] [place] [address], [facility] [address] * Heparin Anti-Xa Assay (09/02/2023 2:57 AM CDT) [facility] Heparin Anti-Xa, P 0.24 IU/mL 2023 [...] NON A DD-ON Performing Organization Address [facility] Co de Phone Number [facility] [address] [place], [place] [phone] [place] [address] DTL [facility] [address] [place] [address] * (ABNORMAL) CBC without Differential (09/01/2023 8:16 PM CDT) [facility] Hemoglobin 8.5(L) 13.2 - 16.6 g/dL 09/01/2023 [...] M.D. LAB BLOOD ADD-ON Performing Organization Address City/[facility]/ZIP Co de Phone Number [facility] [address] [place] [address], [facility] DTL [facility] [address] [place] [address] * Heparin Anti-Xa Assay (09/01/2023 6:50 PM [...] NON A DD-ON Performing Organization Address [facility]/ZIP Co de Phone Number [facility] [address] [place] [address], [facility] DTL [facility] [address] [place] [address] * APTT (Activated Partial Thromboplastin Time) (09/01/2023 9:05 AM CDT) Pathologist [facility] Activated Partial Thrombopl Time, P 28 25 - 37 sec 09/01/2023 9:35 AM CDT [facility] Blood (Blood, Venous) 09/01/2023 9:05 AM CDT 09/01/2023 9:21 AM CDT Paula Hernandez M.D. LAB BLOOD ADD-ON Performing Organization Address City/[facility]/ZIP Co de Phone Number [facility] [address] [place] [address], [facility] STMA [facility] [address] [place] [address] * (ABNORMAL) Basic Metabolic Panel (08/31/2023 9:36 [...] Hernandez M.D. LAB BLOOD ADD-ON [facility] [address] [place] [address], [facility] [address] [place] [address] * (ABNORMAL) CBC without Differential (08/31/2023 9:36 [...] M.D. LAB BLOOD ADD-ON Performing Organization Address City/[facility]/ZIP Co de Phone Number [facility] [address] [place] [address], [facility] DTL [facility] [address] [place] [address] * [place] Fluoro Less Than 1 Hour [...] in the bladder lumen. Paula Hernandez M.D. [facility]ED[facility] * (ABNORMAL) Hemoglobin (08/31/2023 4:21 AM CDT) Hemoglobin 7.8(L) 13.2 - 16.6 g/dL 08/31/2023 4:47 AM CDT DTL Blood (Blood, Venous) 08/31/2023 4:21 AM CDT 08/31/2023 4:35 AM CDT Kimi Vieira M.D., M.S. LAB BLOO D ADD-ON Performing Organization Address City/[facility]/ZIP Co de Phone Number [facility] [address] [place] [address], [facility] DTL [facility] [address] [place] [address] * Type and Screen (with Reflex Antibody ID) (08/30/2023 9:50 PM CDT) Pathologist [facility] ABORh O Pos Not applicable 08/30/2023 [...] BANK TEST ORDERABLES Performing Organization Address [facility] Co de Phone Number [facility] [address] [place] [address], [facility] STRM [facility] [address] [place] [address] * Lactate (08/30/2023 9:50 PM CDT) Lactate, P 1.8 0.5 - 2.2 mmol/L 08/30/2023 10:09 PM CDT STMA Blood (Blood, Venous) 08/30/2023 9:50 PM CDT 08/30/2023 9:55 PM CDT Shannan Correa D.O., M.H.A. LAB BLOOD NON ADD-ON [facility] [address] [place] [address], [facility] [address] [place] [address] * (ABNORMAL) Basic Metabolic Panel (08/30/2023 9:49 PM CDT) Pathologist [facility] Potassium, P 3.6 3.6 - 5.2 [...] M.H.A. LAB BLOOD ADD- ON [facility] [address] [place] [address], [facility] STMA [facility] [address] * (ABNORMAL) CBC with Differential, Blood (08/30/2023 9:49 PM CDT) [facility] Signature Hemoglobin 8.5(L) 13.2 - 16.6 g/dL [...] Correa D.O., M.H.A. LAB BLOOD ADD- ON [facility] [address] [place] [address], [place] [facility] [address] [place] [address] [facility] [address] [place] [address] * DX Chest AP or PA and [...] CDT) Ventricular Rate ECG/Min 145 BPM MUSE OH Interval 136 ms MUSE QRSD Interval 64 ms MUSE QT Interval 260 ms MUSE QTC Interval 403 ms MUSE P Manderson 44 degrees MUSE R Manderson 9 degrees MUSE T Wave Manderson -76 degrees MUSE 08/30/2023 7:44 PM CDT [...] Sarah Morgan R.N. - Reason: See Provider Order)[id number] (Unheld by provider - Provider: Jeffery Valdez [...] give total of 40 mEq Dissolve per shaft repairer recommendations. Do NOT chew or swallow tablet., [...] Tue08/31/23 at 0900 0949 (Given - Provider: aSrah Morgan R.N.) 0812 (Given - Provider: Tayler [...] 2256 documented in this encounter Care Teams Gas Fitter Relationship Specialty Start Date End Date Elsewhere, Pcp PCP - General Internal Medicine 08/13/23 documented as of this encounter
--- OUTSIDE RECORDS SUMMARY | 2023-10-07 12:46 | XMS_ITS | Encounter Summary ---
Author Organization [facility] Address [address] [place] [address] Care Team Providers Care Multimedia Technician Name Role Phone Elsewhere, Pcp Primary Care Provider Unavailabl e Encounter Details Date Type Department Care Team (Late st Contact Info) Description 08/31/2023 12:34 PM CDT Anesthesia Event RST ROMB MAIN OR [address] [place] [phone] Joe Stoll M.D. [address] [place] [phone] Benjamin Williamson APRN, ESTATE PLANNING DIRECTOR [address] [place] [phone] Anesthesia Record Procedure Summary Procedure Name Responsible [...] 1402 08/31/23 1243 by Benjamin Williamson APRN, ESTATE PLANNING DIRECTOR 08/31/23 1402 by Benjamin Williamson APRN, ESTATE PLANNING DIRECTOR Indwelling Urinary Catheter Placement Date: 08/31/23; Placement [...] 12 months has [facility] [employer], or water [employer] threatened to shut off services in your [...] living situation today? I have a [facility] place to live 08/13/2023 Sex and Gender Information Value Date Recorded Sex Assigned at Not on file Gender Identity Not on file Sexual Orientation Not on file documented as of this encounter OR Notes * Anesthesia Postprocedure Evaluation - Joe Stoll M.D. - 08/31/2023 5:27 PM CDT Patient: Kalen Vega Procedure Summary Date: 08/31/23 Room / Location: [address] 01 530 / [facility] in [place], [place] Anesthesia Start: 1234 Anesthesia Stop: 1420 [...] Location: OR [address] 01 530 / [facility] in [place], [place] Providers: Mayur Alvarez M.D. Pertinent components [...] patient / legal guardian, or through an commissioned sales associate; patient evaluated and approved for anesthesia / [...] CDT Procedure visit Department of Urology in [place], [place] [address] [place] [address] Paula Hernandez M.D. [address] [place] [address] documented as of this encounter Procedures Procedure [...] mg documented in this encounter Care Teams Multimedia Technician Relationship Specialty Start Date End Date Elsewhere, Pcp PCP - General Internal Medicine 08/13/23 documented as of this encounter
--- OUTSIDE RECORDS SUMMARY | 2023-10-07 12:47 | XMS_ITS | Encounter Summary ---
Author Organization [facility] Address [address] [place] [address] Care Team Providers Care Location And Measurement Technician Name Role Phone Elsewhere, Pcp Primary Care Provider Unavailabl e Encounter Details Date Type Department Care Team (Latest Contact Info) Description 08/13/2023 3:42 PM CDT - 08/26/2023 4:11 PM CDT Hospital Encounter [facility], [facility], Sixth Floor [address] [place] [address] Darnell Garcia M.D. [address] [place] [phone] Boubacar Brock M.D. [address] [place] [address] Decline Functional Status [R53.81] (Primary Dx); Hematuria [...] your living situation today? I have a [facility] place to live 08/13/2023 Sex and [...] AM CDT DISCHARGE SUMMARY BRIEF OVERVIEW Hospital: [facility] Discharge Provider: Boubacar Brock M.D. Primary Team: [facility] Urology Surgery - Chief Helga - [...] M.D.Wen, Lexiaochuan, M.D.Premo, Hayley, M.D.Botkin, Hannah, M.D. [facility] ROMB OR DISCHARGE DISPOSITION Home or Self Care [1] ACTIVE ISSUES REQUIRING FOLLOW UP OUTPATIENT FOLLOW UP Scheduled Appointments 08/26/2023 1:00 PM [facility] Radiology For appointment details refer to your [...] he felt completely obstructed and presented to [facility]. [facility] Course Attempted Tabares insertion but bladder irrigation was unsuccessful on multiple attempts. Hung 1U pRBC's. Given some volume and transferred to [facility] ICU ICU Course Urology consulted and were [...] CONSULT TO NUTRITION SUPPORT IP CONSULT TO GATEHOUSE ATTENDANT WOUND CARE CONDITION AT DISCHARGE stable Discharge [...] he felt completely obstructed and presented to [facility]. [facility] Attempted Tabares insertion but bladder irrigation was unsuccessful on multiple attempts. Hung 1U pRBC's. Given some volume and transferred to [facility] ICU ICU Course Urology consulted and were [...] PM CDT You were discharged from the [facility] Urology Surgery - Chief A - Blue Service. Please identify this service name if you call with questions after hospitalization. * Attachments The following attachments cannot be sent through Care Everywhere. * Bacitracin (On the skin) (New Zealander) * Cefdinir (By mouth) ([place] Ze[place]) * Trospium (By mouth) ([place] Ze[place]) documented in this encounter Medications at Time [...] Progress Notes * Emeterio Buchanan P.T., D.P.T., [facility] - 08/26/2023 4:27 PM CDT 08/26/23 3785 Reason Therapy Missed Reason Therapy Missed Receiving other care Attempted to see patient twice today. On 1st attempt patient was receiving blood transfusion and RNwas working on completing cares with him. On 2nd attempt patient was with another provider. * Chary Diamond M.A., O.T., [facility] - 08/26/2023 10:21 AM CDT Occupational Therapy [facility] Inpatient Treatment SUBJECTIVE Patient's Name: Kalen Vega Referring/Attending Provider: Boubacar Brock M.D. Reason for Referral: Occupational Therapy Evaluation and Treatment History of Present Illness: Kalen Vega is a 83 y.o. male who was admitted to [facility] in [place] on 08/13/2023 for Hematuria [R31.9]. Precautions Other Precautions: Abdominal, fall precautions, monitor tachycardia and hypertension Pain Assessment: Pain not reported during session. Subjective Comments: Agreeable to therapy session. Team Communication: The patient's status was discussed and coordination of care occurred with RN, Family/Caregiver, nurse tech Family/Caregiver Present: son and [id number] OBJECTIVE Vital Signs: Vitals not formally assessed during session. No concerns during chart review and the patient had nosigns or symptoms consistent with vital changes during therapy session. Outcome Measures: [facility] Inpatient Short Form: Putting on [...] at or below 17 Clinicians answer the [facility] Inpatient Short Form based on [...] through pant leg first. - Adaptive Equipment: Rotary Drill Operator TOILETING - Assist Level: Maximal Assist [...] (Edge of bed) - Assist Level: Modified [place] - Equipment: bed rail - Therapist Delivery: assessed, instructed, assisted - Adaptive Equipment: leg lance crewmember trialed ; however, patient able to move [...] extremity (stiff knee) first. Recommended adaptive equipment: Rotary Drill Operator. Toileting - Patient instructed on accurate [...] maximal exertion Handouts provided: Bathroom Safety Equipment [id number], Techniques to Help You Save Energy [id number] Patient was left in bedside chair with [...] health care OBJECTIVE Patient is admitted in [facility] 6[facility] -room 121 ASSESSMENT / PLAN COMPOUND MACHINE OPERATORpre school manager met with patient and son Kar to inform them of home health care acceptance for PT/OT. Patient's son Kar and [id number] will provide transportation at the time of discharge. PLAN Patient to discharge home with home health care. Home Medical Care - Admitted Since 08/13/2023 Service Provider Selected Services Address Phone Fax Patient Preferred [facility] [address] [facility] [phone] -- Training Program Developer: Ghazal NURSING: - Complete documentation in the Discharge Navigator including Nursing Report Info and Facility/NextLevel of Care Info - Call report and arrange for the patient's first visit - Send After Visit Summary and required packet of dismissal information with patient, including advance directive. PRIMARY SERVICE: - Please provide a non-[place] home health order for: physical therapy and [...] be provided by family--patient's son Kar and [id number]. 3. employment trainer recommended reaching out to family, friends, and neighbors for assistance. 4. employment trainer provided information regarding the dismissal process. Damaris [...] Reviewed with patient #1 Hematuria Please page [facility] ([phone]) or [facility] ([phone]) Nutrition Support Service pager with questions. * Emeterio Buchanan P.T., D.P.T., [facility] - 08/25/2023 9:35 AM CDT Physical Therapy Inpatient Treatment SUBJECTIVE Patient's Name: Kalen Vega Referring/Attending Provider: Boubacar Brock M.D. Reason for Referral: Physical Therapy Evaluate and Treat History of Present Illness: Kalen Vega is a 83 y.o. male who was admitted to [facility] in [place] on 08/13/2023 for Hematuria [R31.9] Precautions Other [...] fit with adult there which they usually [employer] with a difference educated fully know who [...] - 08/25/2023 9:18 AM CDT Occupational Therapy [facility] Inpatient Treatment SUBJECTIVE Patient's Name: Kalen Vega Referring/Attending Provider: Boubacar Brock M.D. Reason for Referral: Occupational Therapy Evaluation and Treatment History of Present Illness: Kalen Vega is a 83 y.o. male who was admitted to [facility] in [place] on 08/13/2023 for Hematuria [R31.9]. Precautions Other Precautions: Abdominal, fall precautions, monitor tachycardia and hypertension Pain Assessment: Pain not reported during session. Subjective Comments: Agreeable to therapy session. Team Communication: The patient's status was discussed and coordination of care occurred with RN, PT OBJECTIVE Vital Signs: Vitals monitored throughout session; within normal ranges. Outcome Measures: [facility] Inpatient Short Form: Putting on [...] at or below 17 Clinicians answer the [facility] Inpatient Short Form based on [...] including figure four technique. Recommended adaptive equipment: Rotary Drill Operator and Sock Aid. Toileting - Patient [...] and modification tools as needed including leg lance crewmember and/or bed adjustments. Bathroom DME: - Educated [...] in place draining clear yellow urine I/O ([id number]): Fifty-five cc serosanguineous from the drain 1 [...] locallyfor CBI. He was subsequently transferred to [facility] 08/12 for difficulty irrigating his catheter [...] 2.5 mg BID eliquis initiated 08/15 per [facility] med curbside recs --transition from [...] have him follow up with his local health care aide Comorbidities: --history of DVT status post IVC [...] discussed with Dr. Venegas, chief urology resident monotype caster. Pager during business hours: [phone] Pager after hours: [phone] * Emeterio Buchanan P.T., D.P.T., [facility] - 08/24/2023 10:46 AM CDT Physical Therapy Inpatient Treatment SUBJECTIVE Patient's Name: Kalen Vega Referring/Attending Provider: Boubacar Brock M.D. Reason for Referral: Physical Therapy Evaluate and Treat History of Present Illness: Kalen Vega is a 83 y.o. male who was admitted to [facility] in [place] on 08/13/2023 for Hematuria [R31.9] Precautions Other [...] baseline. PT Goal #2: Patient will perform jbw-bj-yihfq transfer with modified independence and least restrictive [...] Total Kcal/day: 1370 based on 84 % [place] Non-standard additives: K 80 mEq Phos 30 mmol MAX chloride Thiamine 100 mg daily (D4) ASSESSMENT / PLAN CPN renewed per NSS recommendations; K increased to 80 mEq, phos increased to 30 mmol/day. BMP, mag, phos with AM labs 08/24 ordered Ceftriaxone 2 gm Q 24hr started 08/14--> cefdinir 300 mg PO BID on 08/21 for UTI. Needs LOT determined. Tayler Mckeon PharmJonahDJonah, R.Ph. * Jennifer Millard M.D. - [...] magnesium, phosphorus tomorrow. #1 Hematuria Please page [facility] ([phone]) or [facility] ([phone]) Nutrition Support Service pager with questions. * [...] catheter in place draining light smith I/O ([id number]): Forty-two cc serosanguineous from the drain 2.2 [...] locallyfor CBI. He was subsequently transferred to [facility] 08/12 for difficulty irrigating his catheter [...] 2.5 mg BID eliquis initiated 08/15 per [facility] med curbside recs --transition from [...] have him follow up with his local health care aide Comorbidities: --history of DVT status post IVC [...] discussed with Dr. Venegas, chief urology resident monotype caster. Pager during business hours: [phone] Pager after hours: [phone] * Deanne Mike L.G.S.W., M.S.W. - 08/23/2023 11:25 AM CDT SUBJECTIVE Social Work spoke with [facility]. They cannot provide longterm at this time. They can provide OT/PT [...] anticipated discharge date of 08/24/23-08/26/23. Referrals sent: [facility] [place] - [facility] (out of service area) [facility] ASSESSMENT / PLAN ASSESSMENT Patient has robust family support including a son living with him. PLAN Patient desires home health care through [facility]. Social Work will continue to follow to provide support. Social Work will continue to assist with discharge needs. Shorty Sun, M.S.W. 08/23/23 * Jazmine Benítez R.N., C.W.C.N. - 08/23/2023 11:10 AM CDT [facility] Wound RN consulted [...] stent and hematuria who is transferred from [facility] ED with 3 days of hematuria and [...] None Unable to Measure Y *Wound Bed Closed;[place];Red Tissue Exposed None Odor None *Exudate Amount [...] 30 minutes > 30 minutes Ongoing management Nursing;Wound/silk folder Partial head to toe skin assessment completed [...] AM CDT * Emeterio Buchanan, P.T., D.P.T., [facility] - 08/23/2023 11:02 AM CDT Physical Therapy Inpatient Treatment SUBJECTIVE Patient's Name: Kalen Vega Referring/Attending Provider: Boubacar Brock M.D. Reason for Referral: Physical Therapy Evaluate and Treat History of Present Illness: Kalen Vega is a 83 y.o. male who was admitted to [facility] in [place] on 08/13/2023 for Hematuria [R31.9] Precautions Other [...] and O2 flow: Room air Outcome Measures: [facility] Inpatient Short Form: -[facility] Basic Mobility [...] baseline. PT Goal #2: Patient will perform xro-kq-qzyvq transfer with modified independence and least restrictive [...] D.P.T., [facility] * Demarco Salazar, PharmJonahD., R.Ph., [facility] - 08/23/2023 10:19 AM CDT Pharmacist [...] Total Kcal/day: 1370 based on 84 % [place] Non-standard additives: MAX chloride Thiamine 100 mg [...] magnesium, phosphorus tomorrow. #1 Hematuria Please page [facility] ([phone]) or [facility] ([phone]) Nutrition Support Service pager with questions. * Ivy Hernandez O.T. - 08/23/2023 8:30 AM CDT Occupational Therapy [facility] Inpatient Treatment SUBJECTIVE Patient's Name: Kalen Vega Referring/Attending Provider: Boubacar Brock M.D. Reason for Referral: Occupational Therapy Evaluation and Treatment History of Present Illness: Kalen Vega is a 83 y.o. male who was admitted to [facility] in [place] on 08/13/2023 for Hematuria [R31.9]. Precautions Other Precautions: Abdominal, fall precautions, monitor tachycardia and hypertension Pain Assessment: Pain not reported during session. Subjective Comments: Agreeable to therapy session. Team Communication: The patient's status was discussed and coordination of care occurred with RN, PT OBJECTIVE Vital Signs: Vitals monitored throughout session; within normal ranges. Outcome Measures: [facility] Inpatient Short Form: Putting on [...] at or below 17 Clinicians answer the [facility] Inpatient Short Form based on [...] catheter in place draining clear yellow I/O ([id number]): 73 cc serosanguineous from the drain Seven [...] locallyfor CBI. 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 [facility] Summary: Diet: NPO, TPN Activity: Ad kong [...] discussed with Dr. Venegas, chief urology resident monotype caster. Pager during business hours: [phone] Pager after hours: [phone] * Chary Diamond M.A., O.T., BCP - [...] just began receiving home health care through [facility] patient would like referral sent there. Social Work sent referral. OBJECTIVE Patient is anticipated to remain at [facility] for 3-5 days. Referrals sent: [facility] - [facility] ASSESSMENT / PLAN ASSESSMENT Patient has robust family support including a son living with him. PLAN Patient desires home health care through [facility]. Social Work will continue [...] was admitted to [facility] in [place] on 08/13/2023 for Hematuria [R31.9] Precautions Other [...] 3-5 steps with a railing?: A Lot [facility] Basic Mobility (V.2) Raw Score: 17 [facility] Basic Mobility (V.2) Standardized Score: 39.67 Interpretation: Based on scoring guidelines using the raw score value: Those going to home had an average score at or above 18 Those going to facility had an average score at or below 17 Clinicians answer the [facility] Inpatient Short Form based on [...] baseline. PT Goal #2: Patient will perform zpd-vz-kfayg transfer with modified independence and least restrictive [...] Total Kcal/day: 1370 based on 84 % [place] Non-standard additives: MAX chloride Thiamine 100 mg [...] place draining light smith colored urine I/O ([id number]): CBI on slow drip 75 cc serosanguineous [...] locallyfor CBI. He was subsequently transferred to [facility] 08/12 for difficulty irrigating his catheter [...] 2.5 mg BID eliquis initiated 08/15 per [facility] med curbside recs --transition from [...] have him follow up with his local health care aide Comorbidities: --history of DVT status post IVC [...] discussed with Dr. Venegas, chief urology resident monotype caster. Pager during business hours: [phone] Pager after hours: [phone] * Qamar Jim, Pharm.DJonah, R.Ph. - 08/21/2023 [...] place draining clear smith colored urine I/O ([id number]): 1800 cc urine output 75 cc serosanguineous [...] locallyfor CBI. He was subsequently transferred to [facility] 08/12 for difficulty irrigating his catheter [...] have him follow up with his local health care aide Comorbidities: --history of DVT status post IVC [...] discussed with Dr. Venegas, chief urology resident monotype caster. Pager during business hours: [phone] Pager after hours: [phone] * Lizette Harvey M.D. - 08/20/2023 8:08 [...] draining clear thin merlot colored urine I/O ([id number]): 240 cc p.o. intake 760 cc urine [...] locallyfor CBI. He was subsequently transferred to [facility] 08/12 for difficulty irrigating his catheter [...] 2.5 mg BID eliquis initiated 08/15 per [facility] med curbside recs --transition from [...] have him follow up with his local health care aide Comorbidities: --history of DVT status post IVC [...] questions or concerns. Pager during business hours: [phone] Pager after hours: [phone] * Qamar Jim, PharmJonahDJonah, R.Ph. - 08/20/2023 [...] Evaluation and Treatment History of Present Illness: aKlen Vega is a 83 y.o. male who was admitted to [facility] in [place] on 08/13/2023 for Hematuria [R31.9]. Precautions Other Precautions: Abdominal, fall precautions, monitor tachycardia and hypertension Pain Assessment: Pain not reported during session. Subjective Comments: Patient greeted in chair and agreeable to therapy session. Team Communication: The patient's status was discussed and coordination of care occurred with RN OBJECTIVE Vital Signs: Vitals monitored throughout session; within normal ranges. Outcome Measures: [facility] Inpatient Short Form: Putting on [...] at or below 17 Clinicians answer the [facility] Inpatient Short Form based on [...] about patient's nutritional care please contact pager [phone] on weekdays or [phone] on weekends/holidays. NUTRITION ASSESSMENT: Mr. Vega is [...] care everywhere) ESTIMATED NEEDS: Total Calorie Needs: 5472-0252 calories/day Method to Estimate Energy Needs: kcal/kg [...] was admitted to [facility] in [place] on 08/13/2023 for Hematuria [R31.9] Precautions Other [...] mmHg O2: 96% Room air Outcome Measures: [facility] Inpatient Short Form: -[facility] Basic Mobility [...] Ongoing PT Goal #2: Patient will perform crz-zp-rlfuk transfer with modified independence and least restrictive [...] in place draining clear pink urine I/O ([id number]): 370 p.o. intake 1 L urine output [...] locallyfor CBI. He was subsequently transferred to [facility] 08/12 for difficulty irrigating his catheter [...] 2.5 mg BID eliquis initiated 08/15 per [facility] med curbside recs --transition from [...] have him follow up with his local health care aide Comorbidities: --history of DVT status post IVC [...] questions or concerns. Pager during business hours: [phone] Pager after hours: [phone] * Lisa Seaman, O.T., [facility] - 08/18/2023 11:15 AM CDT Occupational Therapy [facility] Inpatient Treatment SUBJECTIVE Patient's Name: Kalen Vega Referring/Attending Provider: Boubacar Brock M.D. Reason for Referral: Occupational Therapy Evaluation and Treatment History of Present Illness: Kalen Vega is a 83 y.o. male who was admitted to [facility] in [place] on 08/13/2023 for Hematuria [R31.9]. Precautions Other [...] doffing over it last. Recommended adaptive equipment: Rotary Drill Operator and Sock Aid. Patient was left in bedside chair, with nursing/TWO NEEDLE MACHINE OPERATOR at end of session with [...] was admitted to [facility] in [place] on 08/13/2023 for Hematuria [R31.9] Precautions Other [...] 3-5 steps with a railing?: A Little [facility] Basic Mobility (V.2) Raw Score: 18 [facility] Basic Mobility (V.2) Standardized Score: 41.05 Interpretation: Based on scoring guidelines using the raw score value: Those going to home had an average score at or above 18 Those going to facility had an average score at or below 17 Clinicians answer the [facility] Inpatient Short Form based on [...] following coordination of care occurred with the garment fitter/Caregiver Present: No Patient was left in bedside [...] Progressing PT Goal #2: Patient will perform jir-ij-yxbcw transfer with modified independence and least restrictive [...] in place draining clear pink urine I/O ([id number]): 1.2 L p.o. intake 1 L urine [...] locallyfor CBI. He was subsequently transferred to [facility] 08/12 for difficulty irrigating his catheter [...] questions or concerns. Pager during business hours: [phone] Pager after hours: [phone] * Tayler Greenwood M.D., M.Ed. - 08/17/2023 [...] the patient follow up with his primary health care aide at discharge we will which we will [...] Ringer's Lactated Ringer's * Lisa Seaman, O.T., [facility] - 08/17/2023 10:47 AM CDT Occupational Therapy [facility] Inpatient Treatment SUBJECTIVE Patient's Name: Kalen Vega Referring/Attending Provider: Boubacar Brock M.D. Reason for Referral: Occupational Therapy Evaluation and Treatment History of Present Illness: Kalen Vega is a 83 y.o. male who was admitted to [facility] in [place] on 08/13/2023 for Hematuria [R31.9]. Precautions Other [...] at or below 17 Clinicians answer the [facility] Inpatient Short Form based on [...] in place draining clear pink urine I/O ([id number]): NG tube 200 cc Two hundred sixty-five [...] locallyfor CBI. He was subsequently transferred to [facility] 08/12 for difficulty irrigating his catheter [...] questions or concerns. Pager during business hours: [phone] Pager after hours: [phone] * Audi De Luna P.T., D.P.T. - [...] in place draining clear pink urine I/O ([id number]): NG tube 200 cc Two hundred sixty-five [...] locallyfor CBI. He was subsequently transferred to [facility] 08/12 for difficulty irrigating his catheter [...] with Cardiology need for both [facility] Summary: Diet: NPO Activity: Ad kong DVT PPX: Ashley heparin GI PPX: Pantoprazole Bowel Regimen:N/A IVF: LR 75 Abx/Microbiology: Ceftriaxone Pain Control: Tylenol, oxycodone 08/18. Scheduled trospium Home Meds Resumed: Metoprolol, tamsulosin, rosuvastatin Held Home Meds: None Consults: None Signed by: Paula Hernandez M.D. 08/16/2023 6:02 AM CDT Please page the Urology Chief Service with questions or concerns. Pager during business hours: [phone] Pager after hours: [phone] * Paula Hernandez M.D. - 08/15/2023 9:09 AM CDT PROGRESS NOTE: No events. AFVSS. Pain controlled. No flatus. No further emesis overnight. Abdomen more distended than yesterday but remained soft, tender to deep palpation only, no rebound. Twenty-four [place]oc[place]cock three-way catheter remains off CBI, draining [...] for CBI. He was subsequently transferred to [facility] 08/12 for difficulty irrigating his catheter [...] risks associated with surgery and anesthesia including MS, stroke, and VTE were also discussed. Finally, [...] above was discussed with Dr. Brock, urology career development consultant on-call who is in agreement [...] Family to bring his home enzalutamide from [facility] Irvin Franco Pharm.D., R.Ph. * Jakob De Paz M.D. - 08/14/2023 11:34 AM CDT PROGRESS NOTE: No events. AFVSS. Pain controlled. No flatus. Nauseous and had 2 episodes of emesis. Abdomen more distended than yesterday but remained soft, tender to deep palpation only, no rebound. Twenty-four Moroccan Alcock three-way catheter remains off CBI, draining [...] for CBI. He was subsequently transferred to [facility] 08/12 for difficulty irrigating his catheter [...] above was discussed with Dr. Brock, urology career development consultant on-call who is in agreement [...] Patient discussed with Dr. Sylvester. Page CCM3 [id number] Carlos Alberto Henson M.D. PGY-1 CCM 3 [...] who have asked we place a 24 Moroccan 3-way urinary catheter pending evaluation. We will [...] stent and hematuria who is transferred from [facility] ED with 3 days of hematuria and [...] him to present to local hospital in [place]. OSH Course: His hemoglobin was in the [...] Insecurity: No Food Insecurity (02/16/2022) [facility] Worried About Running Out of Food in the Last Year: 1 Transportation Needs: No Transportation Needs (02/16/2022) Received from [facility], [facility] Transportation Needs Lack of Transportation (Medical): 1 Housing Stability: Low Risk (02/16/2022) Received from [facility], [facility] Housing Stability Unable to Pay for [...] Dr. Sylvester and Dr. Rodriguez. Page CCM3 [id number] Carlos Alberto Henson M.D. PGY-1 CCM 3 [...] As expected PRIMARY PROCEDURALIST FAY Cerna MD [id number] ASSISTANTS none COMPLICATIONS None. DRAINS None. IMPLANTS [...] peripheral vein targets. Ultrasound used for assessment: [employer] Fit Provider contacted (include name): Uro [...] 14 -- AST U/L 25 -- Radiology: @[id number]@ Swallow Assessment: No data to display ASSESSMENT / PLAN #1 Hematuria ASSESSMENT Currently we are asked to visit with Mr. Vega for consideration of parenteral nutrition. Nutrition Needs: Height: 180 cm Admission Weight: 91.2 kg (08/13/2023) Current Weight: 90.2 kg BMI (Calculated): 27.8 kg/m?? Total Calorie Needs: 3403-3124 calories/day Method to Estimate Energy Needs: [place] ( ) Weight Used for Equation Calculations: [...] on electrolytes Please call NSS pager at [phone] at [facility] or [phone] at [facility] with any additional questions. * Gilbert [...] STENT EXCHANGE; Surgeon: Boubacar Brock M.D.; Location: [facility] ROMB OR FAMILY HISTORY No [...] values in this interval not displayed. Radiology: @[id number]@ Swallow Assessment: No data to display ASSESSMENT / PLAN #1 Hematuria ASSESSMENT Currently we are asked to visit with Mr. Vega for consideration of parenteral nutrition. Nutrition Needs: Height: 180 cm Admission Weight: 91.2 kg (08/13/2023) Current Weight: 90.2 kg BMI (Calculated): 27.8 kg/m?? Total Calorie Needs: 2863-8553 calories/day Method to Estimate Energy Needs: kcal/kg [...] electrolytes Please call NSS pager at [phone] at [facility] or [phone] at [facility] with any additional questions. BILLING/CODING Total [...] stent along with other stents and apparently health care aide in the past I recommended indefinite dual [...] 20 mL/hr, intravenous, Continuous, Frieda Garner APRN, IT TECHNICAL SPECIALIST, Last Rate: 20 mL/hr at 08/15/23 1459, [...] but he can discuss this with his health care aide at home. We need to balance transfusion needs for continued bleedingand risk of recurrent MS if not on Plavix-coronary stents were 6 [...] was admitted to [facility] in [place] on 08/13/2023 for Hematuria [R31.9]. Relevant Medical History: Kalen Vega is a 83 y.o. 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 Outcome Measures: -[facility] Inpatient Short Form: -[facility] Basic Mobility [...] following coordination of care occurred with the garment fitter/Caregiver Present: SonFavio Patient was left in bedside [...] was admitted to [facility] in [place] on 08/13/2023 for Hematuria with cystotomy and [...] Min assist for mobility. Required assist for jaa-of-riwik for force generation and is generally standby [...] Ongoing PT Goal #2: Patient will perform pvp-le-rxecl transfer with modified independence and least restrictive [...] was admitted to [facility] in [place] on 08/13/2023 for Hematuria [R31.9]. Relevant Medical [...] with RN, PT Family/Caregiver Present: Son and yxmmprto-[id number]. Home Living and Equipment: Lives with: Spouse/Significant [...] walker, Single point cane Adaptive Equipment Owned: Rotary Drill Operator, Long Handled Shoe Horn Other DME Owned: Regular flat bed Prior Level of Function and Mobility: Basic Activities of Daily Living: Independent Instrumental Activities of Daily Living: Required Assistance: Laundry son assists with laundry and cooking Functional Mobility: Independent Driving: Yes Occupational Role: Retired Leisure Interests: watch movies, plays Incont train, meets friends for breakfast. Patient/Caregiver Goals: [...] at or below 17 Clinicians answer the [facility] Inpatient Short Form based on [...] all are a great support. 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 Patient expressed understanding and was agreeable to [...] engaged in conversation with his family when high school social science teacher entered the room. He was engaged in [...] locally at approximately 3:00 a.m. a 22 Moroccan three-way catheter was placed and CBI wasinitiated. [...] non-distended, non-peritonitic Extremities: No edema : 22 Moroccan three-way Tabares catheter draining a minimal amount [...] urinary retention Given his non draining 22 Moroccan three-way catheter the Urology techs and I subsequently exchanged this for a 24 Moroccan three-way Alcock in the usual sterile fashion. [...] to follow [place] [phone] with questions or concerns Sixto Cain M.D. [...] peripheral vein targets. Ultrasound used for assessment: [employer] Fit Provider contacted (include name): Uro [...] CDT Patient Transfer Note Patient transferred to: [facility] Room: [facility] Accompanied by: JAMEL Garcia Report called? [...] signs? YES * Sixto Teague R.R.TJonah, L.R.T., COMMUNITY HEALTH PROGRAM COORDINATOR-[facility] - 08/14/2023 7:00 AM CDT Patient [...] the last 24hours. 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 His existing 24 Moroccan three-way Tabares catheter was noted to be [...] additional tissue for additional coverage. A 24 Moroccan three-way catheter was placed with 15 cc in the balloon. This irrigated to light clear pink. A 15 Moroccan YARELI drain wasplaced into the pelvis exiting left lower quadrant. The fascia was closed with interrupted and fpjplq-[id number] 0 PDS. Fat was approximated using 3-0 [...] RN, CPN, CCDS, CCS, CRC Clinical Documentation Hoisting Laborer Query created by: ELMER Barker, RN, CPN, [...] stent and hematuria who is transferred from [place] ED with 3 days of hematuria & [...] RN, CPN, CCDS, CCS, CRC Clinical Documentation Hoisting Laborer Query created by: ELMER Barker, RN, CPN, [...] he felt completely obstructed and presented to [place] ED. [place] Course Attempted Tabares insertion but bladder irrigation was unsuccessful on multiple attempts. Hung 1U pRBC's. Given some volume and transferred to [facility] ICU ICU Course Urology consulted and were [...] CDT Procedure visit Department of Urology in [place], [place] [address] [place] [address] Paula Hernandez M.D. [address] [place] [address] Pending Results Name Type Priority Associated Diagnoses [...] 08/26/2023 7:16 AM CDT STRM Testing Location [place] DEFAULT 08/26/2023 6:57 AM CDT STRM Blood (Blood, Venous) 08/26/2023 6:50 AM CDT 08/26/2023 6:57 AM CDT Paula Hernandez M.D. LAB BLOOD BANK TEST ORDERABLES Performing Organization Address [facility] Co de Phone Number [facility] [address] [place] [address], [facility] STRM [facility] [address] [place] [address] * (ABNORMAL) CBC without Differential (08/26/2023 3:20 [...] CDT Corin Ring M.D. LAB BLOOD ADD-ON [facility] [address] [place] [address], [facility] DTL [facility] [address] [place] [address] * Magnesium (08/26/2023 3:20 AM CDT) Magnesium, S 2.1 1.7 - 2.3 mg/dL 08/26/2023 4:04 AM CDT DTL Blood (Blood, Venous) 08/26/2023 3:20 AM CDT 08/26/2023 3:50 AM CDT Boubacar Brock M.D. LAB BLOOD ADD-ON [facility] [address] [place] [address], [facility] DTL [facility] [address] [place] [address] * (ABNORMAL) Renal Function Panel (08/26/2023 3:20 AM CDT) Pathologist [facility] Potassium, S 4.4 3.6 - 5.2 mmol/L [...] [facility]/ZIP Co de Phone Number [facility] [address] [place] [address], [facility] [address] [place] [address] * Heparin Anti-Xa Assay (08/26/2023 3:20 AM CDT) [facility] Heparin Anti-Xa, P 0.26 IU/mL 2023 3:58 [...] Hoyt M.D. LAB BLOOD NON ADD -ON [facility] [address] [place] [address], [facility]Department [facility] [address] [place] [address] * (ABNORMAL) CBC without Differential (08/25/2023 3:24 [...] M.D. LAB BLOOD ADD-ON Performing Organization Address City/State/[facility] Co de Phone Number [facility] [place] [address], [facility]Department [facility] [address] [place] [address] * (ABNORMAL) Renal Function Panel (08/25/2023 3:24 AM CDT) Pathologist [facility] Potassium, S 4.1 3.6 - [...] [facility]/ZIP Co de Phone Number [facility] [address] DTDepartment [facility] [address] [place] [address] * Magnesium (08/25/2023 3:24 AM CDT) Pathologist [facility] Magnesium, S 2.2 1.7 - 2.3 mg/dL 08/25/2023 4:36 AM CDT DTL Blood (Blood, Venous) 08/25/2023 3:24 AM CDT 08/25/2023 4:19 AM CDT Boubacar Brock M.D. LAB BLOOD ADD-ON Performing Organization Address City/[facility]/ZIP Co de Phone Number [facility] [address] [facility]Department [facility] [address] [place] [address] * Heparin Anti-Xa Assay (08/25/2023 3:24 AM [...] Boubacar Brock M.D. LAB BLOOD NON ADD-ON [id number] [place] [address] [place] [address] * (ABNORMAL) CBC without Differential (08/24/2023 5:28 AM CDT) [facility] Hemoglobin 8.1(L) 13.2 - 16.6 g/dL 08/24/2023 [...] [facility]/ZIP Co de Phone Number [facility] [address] [place] [address], [facility] [address] [place] [address] * Magnesium (08/24/2023 5:28 AM CDT) Magnesium, S 2.3 1.7 - 2.3 mg/dL 08/24/2023 6:19 AM CDT DTL Blood (Blood, Venous) 08/24/2023 5:28 AM CDT 08/24/2023 6:00 AM CDT Boubacar Brock M.D. LAB BLOOD ADD-ON Performing Organization Address [facility] Co de Phone Number [facility] [address] [place] [address], [facility] [address] [place] [address] * (ABNORMAL) Renal Function Panel (08/24/2023 5:28 [...] CDT Boubacar Brock M.D. LAB BLOOD ADD-ON [facility] [address] [place] [address], [facility] DTDepartment [facility] [address] [place] [address] * Heparin Anti-Xa Assay (08/24/2023 5:28 AM CDT) [facility] Heparin Anti-Xa, P 0.33 IU/mL 2023 5:58 [...] Boubacar Brock M.D. LAB BLOOD NON ADD-ON [facility] [address] [place] [address], [facility] [address] [place] [address] * (ABNORMAL) Potassium (08/23/2023 9:58 PM CDT) [facility] Potassium, S 3.5(L) 3.6 - 5.2 mmol/L 08/23/2023 10:45 PM CDT DTL Blood (Blood, Venous) 08/23/2023 9:58 PM CDT 08/23/2023 10:30 PM CDT Boubacar Brock M.D. LAB BLOOD ADD-ON Performing Organization Address City/[facility]/ZIP Co de Phone Number [facility] [address] [place] [address], [facility] [address] [place] [address] * (ABNORMAL) Phosphorus Inorganic (08/23/2023 9:58 PM CDT) [facility] Phosphorus (Inorganic), S 2.1(L) 2.5 - 4.5 mg/dL 08/23/2023 10:45 PM CDT DT Blood (Blood, Venous) 08/23/2023 9:58 PM CDT 08/23/2023 10:30 PM CDT Paula Hernandez M.D. LAB BLOOD ADD-ON [facility] [address] [place] [address], [facility] [address] [place] [address] * Heparin Anti-Xa Assay (08/23/2023 11:37 AM CDT) [facility] Heparin Anti-Xa, P 0.51 IU/mL 2023 12:42 [...] Boubacar Brock M.D. LAB BLOOD NON ADD-ON [address] [address], [facility] [address] * (ABNORMAL) CBC without Differential (08/23/2023 3:42 AM CDT) [facility] Hemoglobin 8.3(L) 13.2 - 16.6 g/dL 08/23/2023 [...] [facility]/ZIP Co de Phone Number [facility] [address] [place], [place] [address] [place] [address] [address] [place] [address] * Triglycerides (08/23/2023 3:42 AM CDT) Triglycerides [...] LAB BLOOD ADD-ON Performing Organization Address [facility] Co de Phone Number [facility] [address] [place], [place] [phone] [place] [address] [address] [place] [address] * Magnesium (08/23/2023 3:42 AM CDT) Magnesium, S 2.2 1.7 - 2.3 mg/dL 08/23/2023 4:50 AM CDT DTL Blood (Blood, Venous) 08/23/2023 3:42 AM CDT 08/23/2023 4:19 AM CDT Boubacar Brock M.D. LAB BLOOD ADD-ON Performing Organization Address City/[facility]/ZIP Co de Phone Number [facility] [address] [place] [address], [facility] DTL [facility] [address] [place] [address] * (ABNORMAL) Renal Function Panel (08/23/2023 3:42 [...] Brock M.D. LAB BLOOD ADD-[place] [address] * Heparin Anti-Xa Assay (08/23/2023 3:41 AM CDT) Path[facility] Heparin Anti-Xa, P 0.51 IU/mL 2023 4:26 [...] Boubacar Brock M.D. [place] [address] * Glucose, POCT (08/22/2023 11:38 PM CDT) [facility] Glucose, POCT, B 117 70 - 140 mg/dL 08/23/2023 1:06 AM CDT PCLX Site Capillary 08/23/2023 1:06 AM CDT PCLX Last Intake NPO 08/23/2023 1:06 AM CDT PCLX Blood 08/22/2023 11:3 8 PM CDT 08/23/2023 1:06 AM CDT Unknown Provider LAB POCT ORDERABLES- MANUAL POC [facility] [address] [place] [address], [facility] PCLX [facility] POC [address] [place] [address] * Heparin Anti-Xa Assay (08/22/2023 10:14 PM [...] Boubacar Brock M.D. LAB BLOOD NON ADD-ON [facility] [address] [place] [address], [facility] DTDepartment [facility] [address] [place] [address] * CT Abdomen Pelvis without IV Contrast [...] Boubacar Brock M.D. [place] [address], [facility] DTDepartment [facility] [address] [place] [address] * Creatinine, Body Fluid (08/22/2023 3:30 PM CDT) Path[facility] Creatinine, BF 1.2 See Comment mg/dL 08/22/2023 [...] transport rates. All other fluids refer to www.[email or web address].coms.com for further interpretive information. This test has been modified from the professor of mathematics's instructions. Its performance characteristics were determined by [...] M.D. LAB BODY FLUIDS AND STOOLS ORDERABLES [facility] [address] [place] [address], [facility] DTDepartment [facility] [address] [place] [address] * Transfuse Red Blood Cells : (08/22/2023 [...] of a right IJ vein single-lumen 4 Moroccan tunneled PowerPICC ready for immediate use. NR [...] advanced into the IVC and a 4 Moroccan dilator advanced over the wire and attached to a one-way stopcock. A suitable exit site in the right anterior chest was anesthetized and a small incision made. A 4 Moroccan single-lumen PowerPICC was then tunneled from the [...] Wireadvanced into the IVC and a 4 Moroccan dilator advanced over the wire andattached to a one-way stopcock. A suitable exit site in the right anteriorchest was anesthetized and a small incision made. A 4 Moroccan single-lumen PowerPICC was then tunneled fromthe skin [...] of a right IJ vein single-lumen 4 Moroccan tunneled PowerPICCready for immediate use. NR Kimi [...] [facility]/ZIP Co de Phone Number [facility] [address] [place], [place] [phone] [place] [address] [facility] [address] [place] [address] * Type and Screen (with Reflex Antibody ID) (08/22/2023 2:55 AM CDT) Pathologist [facility] ABORh O Pos Not applicable 08/22/2023 3:25 AM CDT STRM Antibody Screen Negative Negative 08/22/2023 3:38 AM CDT STRM Type & Screen Expiration 08/25/2023 23:59 08/22/2023 3:25 AM CDT STRM Testing Location [place] DEFAULT 08/22/2023 3:07 AM CDT STRM Blood (Blood, Venous) 08/22/2023 2:55 AM CDT 08/22/2023 3:07 AM CDT Latisha Whitehead M.D. LAB BLOOD BANK T EST ORDERABLES Performing Organization Address City/[facility]/ZIP Co de Phone Number [facility] [address] [place] [address], [facility] [place] [place] [address] * (ABNORMAL) Comprehensive Metabolic Panel (08/22/2023 2:40 [...] [facility]/ZIP Co de Phone Number [facility] [address] [place] [address], [facility] [address] [place] [address] * Heparin Anti-Xa Assay (08/22/2023 2:40 AM CDT) Pathologist [facility] Heparin Anti-Xa, P 0.47 IU/mL 2023 3:28 [...] BLOOD NON AD D-ON Performing Organization Address [facility]/ZIP Co de Phone Number [facility] [address] [place] [address], [facility] [address] [place] [address] * (ABNORMAL) APTT (Activated Partial Thromboplastin Time) (08/22/2023 2:40 AM CDT) Pathologist [facility] Activated Partial Thrombopl Time, P 64(H) 25 - 37 sec 08/22/2023 3:12 AM CDT STMA Blood (Blood, Venous) 08/22/2023 2:40 AM CDT 08/22/2023 3:01 AM CDT Latisha Whitehead M.D. LAB BLOOD ADD-ON [facility] [address] [place] [address], [facility] [address] [place] [address] * Triglycerides (08/21/2023 7:32 AM CDT) Triglycerides [...] [facility]/ZIP Co de Phone Number [facility] [address] [place], [place] [phone] [place] [address] [address] [place] [address] * Phosphorus Inorganic (08/21/2023 7:32 AM CDT) Phosphorus (Inorganic), S 2.6 2.5 - 4.5 mg/dL 08/21/2023 9:03 AM CDT DTL Blood (Blood, Venous) 08/21/2023 7:32 AM CDT 08/21/2023 8:38 AM CDT Lizette Harvey M.D. LAB BLOOD ADD-O N Performing Organization Address City/[facility]/ZIP Co de Phone Number [facility] [address] [place] [address], [facility] [address] [place] [address] * Magnesium (08/21/2023 7:32 AM CDT) Magnesium, S 2.3 1.7 - 2.3 mg/dL 08/21/2023 9:03 AM CDT DTL Blood (Blood, Venous) 08/21/2023 7:32 AM CDT 08/21/2023 8:38 AM CDT Lizette Harvey M.D. LAB BLOOD ADD-O N [facility] [address] [place] [address], [facility] DTDepartment [facility] [address] [place] [address] * (ABNORMAL) Basic Metabolic Panel (08/21/2023 7:32 [...] LAB BLOOD ADD-O N Performing Organization Address [facility] Co de Phone Number [facility] [address] [place] [address], [facility] DTL [facility] [address] [place] [address] * (ABNORMAL) CBC without Differential (08/21/2023 7:32 [...] [facility]/ZIP Co de Phone Number [facility] [address] [place] [address], [facility] DTL [facility] [address] [place] [address] * Heparin Anti-Xa Assay (08/21/2023 7:32 AM [...] LAB BLOOD NON ADD-ON Performing Organization Address [facility]/ZIP Co de Phone Number [facility] [address] [place] [address], [facility] [address] [place] [address] * (ABNORMAL) APTT (Activated Partial Thromboplastin Time) (08/21/2023 7:32 AM CDT) Pathologist [facility] Activated Partial Thrombopl Time, P 49(H) 25 - 37 sec 08/21/2023 8:31 AM CDT COUNTS INCLUDE [facility] AT [facility] Blood (Blood, Venous) 08/21/2023 7:32 AM CDT 08/21/2023 8:06 AM CDT Boubacar Brock M.D. LAB BLOOD ADD-ON Performing Organization Address City/[facility]/ZIP Co de Phone Number [facility] [address] [place] [address], [facility] [address] [place] [address] * Place peripherally inserted central catheter (PICC) [...] the atrophic right kidney. Lizette Harvey M.D. [facility] CT PROCEDUR ES * (ABNORMAL) Basic Metabolic Panel (08/20/2023 3:19 AM CDT) Pathologist [facility] Potassium, [...] CDT Paula Hernandez M.D. LAB BLOOD ADD-ON [address] [address], [facility] [address] [address] * (ABNORMAL) CBC without Differential (08/20/2023 3:19 [...] [facility]/ZIP Co de Phone Number [facility] [address] [place] [address] * (ABNORMAL) APTT (Activated Partial Thromboplastin Time) (08/20/2023 3:19 AM CDT) Activated Partial Thrombopl Time, P 52(H) 25 - 37 sec 08/20/2023 4:33 AM CDT DTL Blood (Blood, Venous) 08/20/2023 3:19 AM CDT 08/20/2023 4:10 AM CDT Boubacar Brock M.D. LAB BLOOD ADD-ON Performing Organization Address City/[facility] Co de Phone Number [facility] [facility] [address] [place], [place] [address] [place] [address] 200 [place] [address] * (ABNORMAL) APTT (Activated Partial Thromboplastin Time) (08/19/2023 10:57 AM CDT) Activated Partial Thrombopl Time, P 54(H) 25 - 37 sec 08/19/2023 11:44 AM CDT DTL Blood (Blood, Venous) 08/19/2023 10:57 AM CDT 08/19/2023 11:26 AM CDT Boubacar Brock M.D. LAB BLOOD ADD-ON Performing Organization Address City/[facility]/ZIP Co de Phone Number [facility] [address] [place] [address] * (ABNORMAL) APTT (Activated Partial Thromboplastin Time) (08/19/2023 4:51 AM CDT) [facility] Activated Partial Thrombopl Time, P 59(H) 25 - 37 sec 08/19/2023 5:53 AM CDT DT Blood (Blood, Venous) 08/19/2023 4:51 AM CDT 08/19/2023 5:36 AM CDT Boubacar Brock M.D. LAB BLOOD ADD-ON [facility] [address] 200 [place] [address] * (ABNORMAL) APTT (Activated Partial Thromboplastin Time) (08/18/2023 10:03 PM CDT) [facility] Activated Partial Thrombopl Time, P 63(H) 25 - 37 sec 08/18/2023 10:41 PM CDT DT Blood (Blood, Venous) 08/18/2023 10:03 PM CDT 08/18/2023 10:19 PM CDT Boubacar Brock M.D. LAB BLOOD ADD-ON Performing Organization Address City/[facility]/ZIP Co de Phone Number [facility] [address] [place], [place] [id number] [place] [address] 200 [place] [address] * (ABNORMAL) APTT (Activated Partial Thromboplastin Time) (08/18/2023 2:50 PM CDT) [facility] Activated Partial Thrombopl Time, P 64(H) 25 - 37 sec 08/18/2023 3:25 PM CDT DT Blood (Blood, Venous) 08/18/2023 2:50 PM CDT 08/18/2023 3:07 PM CDT Boubacar Brock M.D. LAB BLOOD ADD-ON [facility] [address] 200 [place] [address] * (ABNORMAL) APTT (Activated Partial Thromboplastin Time) (08/18/2023 6:42 AM CDT) [facility] Activated Partial Thrombopl Time, P 61(H) 25 - 37 sec 08/18/2023 7:28 AM CDT DTL Blood (Blood, Venous) 08/18/2023 6:42 AM CDT 08/18/2023 7:04 AM CDT Boubacar Brock M.D. LAB BLOOD ADD-ON [facility] [address] 200 [place] [address] * (ABNORMAL) APTT (Activated Partial Thromboplastin Time) (08/17/2023 11:04 PM CDT) [facility] Activated Partial Thrombopl Time, P 40(H) 25 - 37 sec 08/17/2023 11:46 PM CDT DT Blood (Blood, Venous) 08/17/2023 11:04 PM CDT 08/17/2023 11:31 PM CDT Boubacar Brock M.D. LAB BLOOD ADD-ON [facility] [address] 200 [place] [address] * US Lower Extremity Veins Bilateral (08/17/2023 [...] and management can be found on the [place] site. Link [email or web address] Findings discussed with ??Tayler Greenwood, ?? ([id number]) on 08/17/2023 7:11 PM. Procedure Note Jj [...] be found on theAskMayoExpert site. [email or web address] Findings discussed with Tayler Greenwood MD ([id number]) on 08/17/2023 7:11 PM. IMPRESSION: 1. 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 2. No acute left-sided DVT. Corin Ring M.D. [facility] US PROCEDURES * APTT (Activated Partial Thromboplastin Time) (08/17/2023 4:56 PM CDT) Activated Partial Thrombopl Time, P 29 25 - 37 sec 08/17/2023 5:10 PM CDT STMA Blood (Blood, Venous) 08/17/2023 4:56 PM CDT 08/17/2023 5:00 PM CDT Paula Hernandez M.D. LAB BLOOD ADD-ON Performing Organization Address City/State/[facility] Co de Phone Number [facility] [address] [place] [address], [facility] STMA [facility] [address] [place] [address] * ECG 12 Lead (08/16/2023 9:43 PM CDT) Pathologist [facility] Ventricular Rate ECG/Min 134 BPM MUSE IA Interval 136 ms MUSE QRSD Interval 76 ms MUSE QT Interval 298 ms MUSE QTC Interval 445 ms MUSE P Sunset 29 degrees MUSE R Sunset -6 degrees MUSE T Wave Sunset 21 degrees MUSE 08/16/2023 9:43 PM CDT [...] Azar M.D. ECG ORDERABLES Performing Organization Address [facility] Co de Phone Number MUSE NA * (ABNORMAL) CBC without Differential (08/16/2023 9:40 PM CDT) Pathologist [facility] Hemoglobin 8.8(L) 13.2 - 16.6 g/dL 08/16/2023 [...] CDT Geneva Azar M.D. LAB BLOOD ADD-ON [facility] [address] [place] [address], [facility] [address] [place] [address] * (ABNORMAL) Basic Metabolic Panel (08/16/2023 9:40 PM CDT) [facility] Potassium, S 3.9 3.6 - 5.2 mmol/L [...] CDT Geneva Azar M.D. LAB BLOOD ADD-ON [facility] [address] [place] [address], [facility] [address] [place] [address] * Transfuse Red Blood Cells : (08/16/2023 12:04 PM CDT) Corin Ring M.D. BLOOD TRANSFUSION OR DERABLES * Transfuse Red Blood Cells : , 1 Units (08/16/2023 12:04 PM CDT) Corin Ring M.D. BLOOD TRANSFUSION OR DERABLES * (ABNORMAL) Basic Metabolic Panel (08/16/2023 3:10 AM CDT) Pathologist [facility] Potassium, S 4.2 3.6 - [...] LAB BLOOD ADD-ON Performing Organization Address [facility]/ZIP Co de Phone Number [facility] [address] [place] [address], [facility] DTL [facility] [address] [place] [address] * (ABNORMAL) CBC without Differential (08/16/2023 3:10 [...] [facility]/ZIP Co de Phone Number [facility] 200 [place] [address], [facility] DTL [facility] [address] [place] [address] * (ABNORMAL) CBC with Differential, Blood (08/15/2023 3:58 PM CDT) Pathologist [facility] Hemoglobin 9.0(L) 13.2 - 16.6 g/dL 08/15/2023 [...] Carlos Alberto Henson M.D. LAB BLOOD ADD-ON [facility] [address] [place] [address], [facility] DTL [facility] [address] [place] [address] DHPM [facility] [address] [place] [address] * DX Abdomen 1 View (08/15/2023 1:19 [...] CDT 08/15/2023 12:03 PM CDT Rae Gonzalez PIANO ASSEMBLER, IT TECHNICAL SPECIALIST, DNAP LAB BLOO D NON ADD-ON [facility] [address] [place] [address], [facility] STMA [facility] [address] [place] [address] * Lactate, B - Intra-op (08/15/2023 11:56 AM CDT) Lactate, B 1.1 0.5 - 2.2 mmol/L 08/15/2023 12:06 PM CDT STMA Blood (Blood, Venous) 08/15/2023 11:56 AM CDT 08/15/2023 12:03 PM CDT Hayde Song M.D. LAB BLOOD NON ADD-O N Performing Organization Address City/[facility]/ZIP Co de Phone Number [facility] [address] [place], [place] [phone] [place] [address] 200 [place] [address] * (ABNORMAL) Glucose, Whole Blood (08/15/2023 11:56 AM CDT) Glucose 144(H) 70 - 140 mg/dL 08/15/2023 12:06 PM CDT STMA Blood (Blood, Arterial Line) 08/15/2023 11:56 AM CDT 08/15/2023 12:03 PM CDT Hayde Song M.D. LAB BLOOD ADD-ON Performing Organization Address City/[facility]/ZIP Co de Phone Number [facility] [address] [place] [address], [facility] 200 [place] [address] * Potassium, Blood (08/15/2023 11:56 AM CDT) Potassium, B 4.3 3.6 - 5.2 mmol/L 08/15/2023 12:07 PM CDT STMA Blood (Blood, Arterial Line) 08/15/2023 11:56 AM CDT 08/15/2023 12:03 PM CDT Hayde Song M.D. LAB BLOOD NON ADD-O N Performing Organization Address City/State/[facility] Co de Phone Number [facility] [address] [place] [address], [facility] 200 [place] [address] * Sodium, B (08/15/2023 11:56 AM CDT) Sodium, B 135 135 - 145 mmol/L 08/15/2023 12:06 PM CDT [facility] Blood (Blood, Arterial Line) 08/15/2023 11:56 AM CDT 08/15/2023 12:03 PM CDT Hayde Song M.D. LAB BLOOD NON ADD-O N Performing Organization Address City/[facility] Co de Phone Number [facility] [address] [place], [place] [address] 200 [place] [address] * (ABNORMAL) Calcium, Ionized (08/15/2023 11:56 AM CDT) Calcium, Ionized, B 4.53(L) 4.65 - 5.30 mg/dL 08/15/2023 12:07 PM CDT [facility] Blood (Blood, Arterial Line) 08/15/2023 11:56 AM CDT 08/15/2023 12:03 PM CDT Hayde Song M.D. LAB BLOOD NON ADD-O N [facility] [address] [place] [address], [facility] 200 [place] [address] * (ABNORMAL) Blood Gas with Coox, Arterial [...] Song M.D. LAB BLOOD NON ADD-O N [facility] 200 [place] [address], [facility] 200 [place] [address] * [place] Fluoro Less Than 1 Hour [...] CDT 08/15/2023 10:28 AM CDT Rae Gonzalez PIANO ASSEMBLER, IT TECHNICAL SPECIALIST, DNAP LAB BLOO D NON ADD-ON [facility] [address] [place] [address], [facility] [address] [place] [address] * Lactate, B - Intra-op (08/15/2023 10:28 AM CDT) Lactate, B 1.1 0.5 - 2.2 mmol/L 08/15/2023 10:30 AM CDT STMA Blood (Blood, Venous) 08/15/2023 10:28 AM CDT 08/15/2023 10:28 AM CDT Hayde Song M.D. LAB BLOOD NON ADD-O N Performing Organization Address City/[facility]/ZIP Co de Phone Number [facility] [address] [place] [address], [facility] [address] [place] [address] * Glucose, Whole Blood (08/15/2023 10:28 AM CDT) Glucose 134 70 - 140 mg/dL 08/15/2023 10:30 AM CDT STMA Blood (Blood, Arterial Line) 08/15/2023 10:28 AM CDT 08/15/2023 10:28 AM CDT Hayde Song M.D. LAB BLOOD ADD-ON [facility] [address] [place] [address], [facility] 200 [place] [address] * Potassium, Blood (08/15/2023 10:28 AM CDT) Potassium, B 4.1 3.6 - 5.2 mmol/L 08/15/2023 10:31 AM CDT STMA Blood (Blood, Arterial Line) 08/15/2023 10:28 AM CDT 08/15/2023 10:28 AM CDT Hayde Song M.D. LAB BLOOD NON ADD-O N [facility] [address] [place], [place] [address] [place] [address] 200 [place] [address] * Sodium, B (08/15/2023 10:28 AM CDT) Sodium, B 135 135 - 145 mmol/L 08/15/2023 10:30 AM CDT STMA Blood (Blood, Arterial Line) 08/15/2023 10:28 AM CDT 08/15/2023 10:28 AM CDT Narrative Authorizing Provider Result Abdifatah Song M.D. LAB BLOOD NON ADD-O N [facility] [address] [place], [place] [address] [place] [address] * (ABNORMAL) Calcium, Ionized (08/15/2023 10:28 AM CDT) Calcium, Ionized, B 4.25(L) 4.65 - 5.30 mg/dL 08/15/2023 10:31 AM CDT STMA Blood (Blood, Arterial Line) 08/15/2023 10:28 AM CDT 08/15/2023 10:28 AM CDT Hayde Song M.D. LAB BLOOD NON ADD-O N [facility] [address] [place] [address], [facility] [address] [place] [address] * (ABNORMAL) Blood Gas with Coox, Arterial (08/15/2023 10:28 AM CDT) [facility] Signature pO2 171(H) 83 - 108 [...] Song M.D. LAB BLOOD NON ADD-O N [facility] [address] [place] [address], [facility] [address] [place] [address] * Bacteria / Yomaira Culture, Blood #2 (08/15/2023 3:33 AM CDT) Pathologist [facility] Bacteria/Leyla da Culture, Blood No growth after 5 days of incubation. 08/20/2023 6:02 AM CDT DTL Blood (Blood, Peripheral Draw) 08/15/2023 3:33 AM CDT 08/15/2023 5:58 AM CDT Comment:Specimen Source Site : Blood Narrative [facility] - 08/20/2023 6:02 AM CDT Received Bactec aerobic and Bactec anaerobic bottles Carlos Alberto Henson M.D. LAB [facility] - [facility] [address] [place] [address], [facility] 200 [place] [address] * (ABNORMAL) Basic Metabolic Panel (08/15/2023 3:31 AM CDT) Pathologist [facility] Potassium, S 4.0 3.6 - 5.2 mmol/L [...] LAB BLOOD ADD-ON Performing Organization Address [facility] Co de Phone Number [facility] 200 [place] [address] * Bacteria / Yomaira Culture, Blood #1 (08/15/2023 3:31 AM CDT) [facility] Bacteria/Leyla da Culture, Blood No growth after 5 days of incubation. 08/20/2023 6:02 AM CDT DTL Blood (Blood, Peripheral Draw) 08/15/2023 3:31 AM CDT 08/15/2023 5:59 AM CDT Comment:Specimen Source Site : Blood Carlos Alberto Henson M.D. LAB MICROBIOLOGY - G ENERAL ORDERABLES Performing Organization Address [facility] de Phone Number [facility] [address] [place] [address] * (ABNORMAL) CBC with Differential, Blood (08/15/2023 3:30 AM CDT) [facility] Hemoglobin 9.5(L) 13.2 - 16.6 g/dL 08/15/2023 [...] Carlos Alberto Henson M.D. LAB BLOOD ADD-ON [facility] [address] [place] [address], [facility] DTL [facility] [address] [place] [address] DHPM [facility] [address] [place] [address] * (ABNORMAL) CBC with Differential, Blood (08/14/2023 8:08 PM CDT) [facility] Signature Hemoglobin 9.8(L) 13.2 - 16.6 [...] Carlos Alberto Henson M.D. LAB BLOOD ADD-ON [facility] [address] [place] [address], [facility] STMA [facility] [address] [place] [address] [facility] [address] [place] [address] * Transfuse Red Blood Cells : , 2 Units (08/14/2023 6:55 PM CDT) Carlos Alberto Henson M.D. BLOOD TRANSFUSION OR DERABLES * Transfuse Red Blood Cells : (08/14/2023 6:55 PM CDT) [facility] BLOOD TRANSFUSION OR DERABLES * Transfuse Red Blood Cells : (08/14/2023 3:40 PM CDT) [facility] BLOOD TRANSFUSION OR DERABLES * (ABNORMAL) CBC with Differential, Blood (08/14/2023 3:18 AM CDT) [facility] Hemoglobin 7.6(L) 13.2 - 16.6 g/dL 08/14/2023 [...] Carlos Alberto Henson M.D. LAB BLOOD ADD-ON [facility] [address] [place] [address], [facility] STMA [facility] [address] [place] [address] [facility] [address] [place] [address] * (ABNORMAL) Basic Metabolic Panel (08/14/2023 3:18 [...] ADD-ON Performing Organization Address City/[facility] Co de Phone Number [facility] [address] [place] [address], [facility] DTL [facility] [address] [place] [address] * Type and Screen (with Reflex Antibody ID) (08/13/2023 7:35 PM CDT) [facility] ABORh O Pos Not applicable 08/13/2023 7:58 PM CDT STRM Antibody Screen Negative Negative 08/13/2023 8:13 PM CDT STRM Type & Screen Expiration 08/16/2023 23:59 08/13/2023 7:58 PM CDT STRM Testing Location [place] DEFAULT 08/13/2023 7:39 PM CDT STRM Blood (Blood, Venous) 08/13/2023 7:35 PM CDT 08/13/2023 7:39 PM CDT Carlos Alberto Henson M.D. LAB BLOOD BANK TEST ORDERABLES Performing Organization Address [facility] Co de Phone Number [facility] [address] [place] [address], [facility] 200 [place] [address] * (ABNORMAL) Bacteria / Yomaira Culture, Blood #1 (08/13/2023 7:35 PM CDT) [facility] Bacteria/Cand jessica Culture, Blood ESCHERICHIA COLI Growth after 11 Hours (A) 08/16/2023 11:17 AM CDT DTL Comment: 3 of 3 Bottles, Susceptibilities performed on another specimen [id number] Blood (Blood, Peripheral Draw) 08/13/2023 7:35 PM CDT 08/13/2023 8:15 PM CDT Comment:Specimen Source Site : Blood Carlos Alberto Henson M.D. LAB MICROBIOLOGY - G ENERAL ORDERABLES [facility] [address] [place] [address], [facility] DTL [facility] [address] [place] [address] * ECG 12 Lead (08/13/2023 7:02 PM CDT) Ventricular Rate ECG/Min 128 BPM MUSE IA Interval 138 ms MUSE QRSD Interval 64 ms MUSE QT Interval 304 ms MUSE QTC Interval 443 ms MUSE P Sunset 45 degrees MUSE R Sunset 34 degrees MUSE T Wave [place] 46 degrees MUSE 08/13/2023 7:02 PM CDT 08/13/2023 7:13 PM CDT Impressions MUSE - 08/13/2023 7:13 PM CDT Sinus tachycardia Otherwise normal ECG No previous ECGs available Reviewed by BETTY Walton Narrative Procedure Note Lucas Lee M.D. - 08/13/2023 IMPRESSION: Sinus tachycardia Otherwise normal ECG No previous ECGs available Reviewed by BETTY Walton Toby Wright ECG ORDERABLES Performing Organization Address [facility] Co de Phone Number MUSE NA [...] CDT Comment:Specimen Source Site : Blood Narrative [facility] - 08/16/2023 11:17 AM CDT [...] M.D. LAB MICROBIOLOGY - G ENERAL ORDERABLES [address] [address], [facility] [address] [address] * Magnesium (08/13/2023 5:27 PM CDT) Magnesium, S 1.9 1.7 - 2.3 mg/dL 08/13/2023 6:12 PM CDT DTL Blood (Blood, Venous) 08/13/2023 5:27 PM CDT 08/13/2023 5:58 PM CDT Carlos Alberto Henson M.D. LAB BLOOD ADD-ON Performing Organization Address [facility]/ZIP Co de Phone Number [facility] [address] [place], [place] [address] [place] [address] [facility] [address] [place] [address] * (ABNORMAL) Hepatic Function Panel (08/13/2023 5:27 [...] [facility]/ZIP Co de Phone Number [facility] [address] [place] [address], [facility] DTDepartment [facility] [address] [place] [address] * (ABNORMAL) Basic Metabolic Panel (08/13/2023 5:27 [...] Carlos Alberto Henson M.D. LAB BLOOD ADD-ON [facility] [address] [place] [address], [facility] [address] [place] [address] * Prothrombin Time (PT) (08/13/2023 5:27 PM [...] Carlos Alberto Henson M.D. LAB BLOOD ADD-ON [facility] [address] [place] [address], [facility] [address] [place] [address] * (ABNORMAL) CBC with Differential, Blood (08/13/2023 [...] Carlos Alberto Henson M.D. LAB BLOOD ADD-ON [facility] [address] [place] [address], [facility] STMA [facility] [address] [place] [address] DHPM [facility] [address] [place] [address] * (ABNORMAL) Dipstick, Urine (08/13/2023 5:07 PM [...] Carlos Alberto Henson M.D. LAB URINE ORDERABLES [facility] [address] [place] [address], [place] [facility] [address] [place] [address] * Osmolality, Urine (08/13/2023 5:07 PM CDT) Osmolality, U 351 150 - 1150 mOsm/kg 08/13/2023 7:46 PM CDT DTL Urine 08/13/2023 5:07 PM CDT 08/13/2023 5:45 PM CDT Carlos Alberto Henson M.D. LAB URINE ORDERABLES [facility] [address] [place] [address], [facility] 200 [place] [address] * (ABNORMAL) Microscopic Manual (08/13/2023 5:07 PM [...] Carlos Alberto Henson M.D. LAB URINE ORDERABLES [facility] [address] [place] [address], [facility] 200 [place] [address] * pH, Random, Urine (08/13/2023 5:07 PM CDT) pH, Random, U 7.0 4.5 - 8.0 08/13/2023 7:46 PM CDT DTL Urine 08/13/2023 5:07 PM CDT 08/13/2023 5:45 PM CDT Carlos Alberto Henson M.D. LAB URINE ORDERABLES [facility] [address] [place] [address], [facility] DTDepartment [facility] [address] [place] [address] * (ABNORMAL) Bacterial Culture, Aerobic + Susceptibility, [...] Carlos Alberto Henson M.D. LAB MICROBIOLOGY - [facility] ORDERABLES [facility] [address] [address], [facility] [address] * (ABNORMAL) Urinalysis, with Microscopic: Urine, Midstream [...] CDT DTL Predicted 24 [place] [id number](H) <229 mg/24 h 08/13/2023 8:50 PM CDT DTL Predicted Range [id number] mg/24 h 08/13/2023 8:50 PM CDT DTL Comment Micro done on <2.5 mL 08/13/2023 7:55 PM CDT DTL Urine (Urine, Midstream) 08/13/2023 5:07 PM CDT 08/13/2023 5:44 PM CDT Carlos Alberto Henson M.D. LAB URINE ORDERABLES [facility] [address] [place] [address], [facility] DTL [facility] [address] [place] [address] * Interpretation of Outside CT Abdomen and [...] may use home supply. 08/17/23: Id'ed by [facility] Rx# [id number], filled 07/22/23. HAZARDOUS - Handle with care. Swallow whole. Do NOT crush, chew or open capsule. Given 08/26/2023 9:12 AM CDT 120 mg Given 08/25/2023 9:08 AM CDT 120 mg Given 08/24/2023 9:12 AM CDT 120 mg fat emulsion sdf-jvf-emyop & fish oil infusion 50 g (SMOFlipid) [...] Lactated Ringer's 1.5 mL/kg/hr ? 75 kg [place] weight (112.5 mL/hr, rounded to 113 mL/hr), intravenous, Continuous, Starting on Tue08/22/23 at 1030, Conditional Phase Pre-Gastrografin Administration. (Rate = 1.5 mL/kg/hr ideal body weight) Lactated Ringer's 0.75 mL/kg/hr ? 75 kg [place] weight (56.25 mL/hr, rounded to 56.3 mL/hr), [...] use home supply. 08/17/23: Id'ed by [facility] Rx# [id number], filled 07/22/23. HAZARDOUS - Handle with care. Swallow whole. Do NOT crush, chew or open capsule. 09 (Given - Provider: Tayler Forrest R.N. - Comment: Pat Murray, -2nd RN) 09 (Given - Provider: Tayler Forrest R.N. - Comment: Pt 's own med from home) 911 (Given - Provider: Lupe Valdez R.N.) fat emulsion nkb-bei-xwhty & fish oil infusion 50 g (SMOFlipid) [...] Tayler Forrest R.N. - Comment: verified by Antonai Salazar RN)[id number] (Stopped - Provider: Antonia Salazar [...] Lactated Ringer's 1.5 mL/kg/hr ? 75 kg [place] weight (112.5 mL/hr, rounded to 113 mL/hr), intravenous, Continuous, Starting on Tue08/22/23 at 1030, Conditional Phase Pre-Gastrografin Administration. (Rate = 1.5 mL/kg/hr ideal body weight) Lactated Ringer's 0.75 mL/kg/hr ? 75 kg [place] weight (56.25 mL/hr, rounded to 56.3 mL/hr), [...] [id number] documented in this encounter Care Teams Location And Measurement Technician Relationship Specialty Start Date End Date Elsewhere, Pcp PCP - General Internal Medicine 08/13/23 documented as of this encounter
--- OUTSIDE RECORDS SUMMARY | 2023-10-07 12:48 | XMS_ITS | Encounter Summary ---
Author Organization [facility] Address [address] [place] [address] Care Team Providers Care Ag Equipment Field Service Technician Name Role Phone Elsewhere, Pcp Primary Care Provider Unavailabl e Encounter Details Date Type Department Care Team (Late st Contact Info) Description 08/15/2023 8:30 AM CDT Anesthesia Event RST ROMB MAIN OR [address] [place] [address] Hayde Song M.D. [address] [place] [address] Anesthesia Record Procedure Summary Procedure Name Responsible [...] R.N. 08/15/23 0909 by Rae Gonzalez APRN, BLOCK MAKING MACHINE OPERATOR, DNAP Peripheral IV Placement Date: 08/02; [...] R.N. 08/31/23 1304 by Jacqui Mehta RJonahNJonah Closed/Suction Drain 08/15/23; 1215; Med ial; [...] Smoking Tobacco: Never Smokeless Tobacco: Never [facility] Utilities Answer Date Recorded In the past 12 months has e [employer], gas, oil, or water [email or web address] threatened to shut off services in your [...] your living situation today? I have a [facility] place to live 08/13/2023 Sex and Gender Information Value Date Recorded Sex Assigned at Not on file Gender Identity Not on file Sexual Orientation Not on file documented as of this encounter OR Notes * Anesthesia Postprocedure Evaluation - Nereida Liang M.D. 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 Location: [place] [address] / [facility] in [place], [place] Providers: Boubacar Brock M.D. Pertinent components [...] patient / legal guardian, or through an um nurse; patient evaluated and approved for anesthesia / [...] CDT Procedure visit Department of Urology in [place], [place] [address] [place] [address] Paula Hernandez M.D. [address] [place] [address] documented as of this encounter Procedures Procedure Name Priority Date/Time Associated Diagnosis Comments MC ANE INVASIVE CATH WITH ULTRASOUND Routine 08/15/2023 9:51 AM CDT LDA ANE ARTERIAL LINE INSERTION Routine 08/15/2023 9:51 AM CDT CO US GUIDE VASC ACCESS Routine 08/15/2023 9:51 AM CDT CO ARTL CATH/CNULA MONITOR PERC Routine 08/15/2023 9:51 AM CDT LDA ANE ENDOTRACHEAL AIRWAY Routine 08/15/2023 8:40 AM CDT documented in this encounter Results * CO ARTL CATH/CNULA MONITOR PERC, CO US GUIDE VASC ACCESS, LDA ANE ARTERIAL [...] ETT location: oral VL device: glide scope Nemo scope blade size: 4 Tube size: 7.5 [...] mg documented in this encounter Care Teams Ag Equipment Field Service Technician Relationship Specialty Start Date End Date Elsewhere, Pcp PCP - General Internal Medicine 08/13/23 documented as of this encounter
--- OUTSIDE RECORDS SUMMARY | 2023-10-07 12:48 | XMS_ITS | Encounter Summary ---
Author Organization [facility] Address [address] [place] [address] Care Team Providers Care Auto Former Machine Operator Name Role Phone Elsewhere, Pcp Primary Care Provider Unavailabl e Encounter Details Date Type Department Care Team (Late st Contact Info) Description 08/23/2023 12:45 AM CDT Ancillary Procedure Department of Nursing Social History Tobacco Use Types Packs/Day Years Used Date Smoking Tobacco: Never Smokeless Tobacco: Never [facility] Utilities Answer Date Recorded In the past 12 months has e electric, gas, oil, or water [employer] threatened to shut off services in your [...] Procedure visit Department of Urology in [place], [place] [address] [place] [address] Paula Hernandez M.D. [address] [place] [address] documented as of this encounter Procedures Procedure [...] on filedocumented in this encounter Care Teams Auto Former Machine Operator Relationship Specialty Start Date End Date Elsewhere, Pcp PCP - General Internal Medicine 08/13/23 documented as of this encounter
--- OUTSIDE RECORDS SUMMARY | 2023-10-07 12:49 | XMS_ITS | Encounter Summary ---
Author Organization [facility] Address [address] [place] [address] Care Team Providers Care Scallop Cutter Machine Name Role Phone Elsewhere, Pcp Primary Care Provider Unavailabl e Encounter Details Date Type Department Care Team (Late st Contact Info) Description 08/13/2023 4:35 PM CDT Ancillary Procedure Department of Radiology in [place], [place] [address] [place] [address] Carlos Alberto Henson M.D. [address] [place] [address] Social History Tobacco Use Types Packs/Day Years Used Date Smoking Tobacco: Never Smokeless Tobacco: Never [facility] Utilities Answer Date Recorded In the past 12 months has [facility] [employer], gas, oil, or water [employer] threatened to shut off services in [...] CDT Procedure visit Department of Urology in [place], [place] [address] [place] [address] Paula Hernandez M.D. [address] [place] [address] documented as of this encounter Procedures Procedure [...] on filedocumented in this encounter Care Teams Scallop Cutter Machine Relationship Specialty Start Date End Date Elsewhere, Pcp PCP - General Internal Medicine 08/13/23 documented as of this encounter
--- OUTSIDE RECORDS SUMMARY | 2023-10-07 12:49 | XMS_ITS | Clinical Summary ---
Author Organization [facility] Address [place], [place] [address] Care Team Providers Care Direct Mail Marketer Name Role Phone Cesar Mccollum MD Primary Care Provider Nicola Mcgarry MD Unavailable [phone] Mireya Tan MD Unavailable [phone] [facility] Unavailable [phone] Allergies No known active allergies Medications Medication Sig Dispensed Refills Start Date End Date Status nitroglycerin (NITROSTAT) 0.4 mg SL tabletIndications:C hest pain on exertion Place 1 tablet under the tongue every 5 minutes if needed for Chest Pain (may take up to 3 tablets SL x 3 q 5 minutes). 1 Bottle 0 Active enzalutamide (XTANDI) 40 mg capsuleIndications: Prostate cancer (HC) Take 120 mg by mouth once daily. 0 1 Active cholecalciferol (Vitamin D-3) 2,000 unit capsule Take 1 Capsule (2,000 units) by mouth once daily. 0 2 Active coenzyme q10 100 mg cap Take 1 Capsule (100 mg) by mouth once daily. 0 2 Active mirabegron EXTENDED-release (Myrbetriq) 50 mg tablet Take 50 mg by mouth once daily. Active rivaroxaban (XARELTO) 10 mg tabletIndications:d eep vein thrombosis prevention Take 1 Tablet (10 mg) by mouth once daily with evening meal. 0 3 Active calcium carbonate (Calcium 600) 600 mg calcium (1,500 mg) tablet Take 600 mg by mouth two times daily with meals. Active rosuvastatin (CRESTOR) 40 mg tabletIndications:H yperlipidemia, unspecified hyperlipidemia type TAKE 1 TABLET(40 MG) BY MOUTH AT BEDTIME 90 Tablet 3 4 Active amLODIPine (NORVASC) 10 mg tabletIndications:B enign essential HTN TAKE 1 TABLET(10 MG) BY MOUTH EVERY DAY 90 Tablet 2 4 Active clopidogreL (PLAVIX) 75 mg tabletIndications:C oronary artery disease, unspecified vessel or lesion type, unspecified whether angina present, unspecified whether [place] or transplanted heart Take 1 Tablet (75 mg) by mouth every morning. 90 Tablet 3 4 Active metoprolol succinate (TOPROL XL) 50 mg sustained-release tabletIndications:H ypertension, unspecified type Take 1 Tablet (50 mg) by mouth once daily. 90 Tablet 3 4 Active tamsulosin (FLOMAX) 0.4 mg capsuleIndications: BPH without urinary obstruction Take 1 Capsule (0.4 mg) by mouth once daily after a meal. 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 daily 4 Active acetaminophen (TYLENOL EXTRA STRGTH) 500 mg tabletIndications:P ain Take 2 Tablets (1,000 mg) by mouth 3 times daily if needed for Pain. Max acetaminophen dose: 4000mg in 24 hrs. 4 Active iron, carbonyl (Perfect Iron) 25 mg iron tab Take by mouth. 3 10/04/19 24 Discontinue d(*Medicati on adjustment) naproxen (NAPROSYN) 500 mg tabletIndications:O ther hydronephrosis Take 0.5-1 Tablets (250-500 mg) by mouth every 12 hours if needed for Pain. 5 Tablet 4 10/04/19 24 Discontinue d(*Patient states no longer taking) trimethoprim-sulfam ethoxazole, 160-800 mg, (BACTRIM DS, SEPTRA DS) tabIndications:Comp licated UTI (urinary tract infection) Take 1 Tablet by mouth two times daily for 7 days. 14 Tablet 4 09/28/19 24 levoFLOXacin (LEVAQUIN) 250 mg tabletIndications:C omplicated UTI (urinary tract infection) Take 1 Tablet (250 mg) by mouth once daily for 5 days. 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 UHG=834.87 Bladder mass 02/29/2020 04/30/2020 Hematuria 02/29/2020 03/05/2020 Acute deep vein thrombosis (DVT) 02/29/2020 11/20/2020 S/P coronary angioplasty 11/03/2016 Chest pain 09/15/2016 03/05/2020 Elevated prostate specific antigen (PSA) 10/06/2010 03/05/2020 Hip arthritis 10/06/2010 03/05/2020 Colon polyp 07/15/2010 PATRICE (acute kidney injury) Obstructive uropathy 020 Encounters Date Type Department Care Team Description 10/07/2023 Home Care Visit [facility] [address] [place] [address] Milli Torre, RN CARE COORDINATION 10/06/2023 1:00 PM CDT Ancillary Procedure [facility] [place] [address] [place] [address] Arrived 10/06/2023 Travel 10/04/2023 1:00 PM CDT Office Visit [facility] [address] [place] [phone] Souleymane Miller MD Follow Up (Annual Follow up /Coronary artery disease) 10/04/2023 10:15 AM CDT Home Care Visit [facility] [address] [place] [address] Manav Rodríguez, PT PT - OASIS START OF CARE 10/04/2023 Telephone [facility] [address] [place] [address] Manav Rodríguez, PT Home Care 10/04/2023 Orders Only [facility] [address] [place] [address] Souleymane Miller MD 1 scan: (1-Ord) NFLD-EKG-10/04/23 10/04/2023 Travel 10/04/2023 Plan of Care Documentation [address] [address] 10/03/2023 Telephone [facility] [address] [place] [facility] [place] [address] Cesar Mccollum MD 10/02/2023 Home Care Visit [address] [address] Saul Lawson, RN CARE COORDINATION 10/01/2023 Home Care Visit [address] [address] Saul Lawson, RN CARE COORDINATION 09/29/2023 1:40 PM CDT Office Visit [facility] [address] [place] [address] Cesar Mccollum MD Hospital F/U ([place], urinary problem); Concerns (Bed sore - would like checked) 09/29/2023 Travel 09/23/2023 Telephone [facility] [address] [facility] [place] [address] Cesar Mccollum MD Results 09/22/2023 10:30 AM CDT Orders Only [facility] [address] [facility] [place] [address] Lab, [place] Lab 09/22/2023 9:50 AM CDT Nurse/Clinic Staff Only [facility] [address] [facility] [place] [address] Dressing Change 09/22/2023 Telephone [facility] [address] [facility] [place] [address] Cesar Mccollum MD Results 09/22/2023 Travel 09/21/2023 3:20 PM CDT Nurse/Clinic Staff Only [facility] [address] [facility] [place] [address] Procedure (UA collection from jon and neph tube) 09/21/2023 Telephone [facility] [address] [place] [place] [address] Letty Mera MD 09/20/2023 2:15 PM CDT Ancillary Procedure [facility] [address] [place] [address] 09/20/2023 1:00 PM CDT Office Visit [facility] [address] [place] [address] Letty Mera MD Hospital F/U (Admission Date: 09/09/2023 Discharge Date: 09/15/23); Wound Check (sacrum & neph tube site. ); Home Care; Concerns (Feels like catheter is falling out - pt states that it is leaking. 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) 08/31/2023 Transcribe Orders [facility] [address] [place] [address] Senthil Alvarez MD 08/30/2023 Orders Only [facility] Scanner 1 scan: (1-Ord) [facility], 08/30/2023 08/23/2023 Transcribe Orders [facility] [address] [place] [address] Provider, Non-Excellian 08/13/2023 Orders Only [facility] Scanner 1 scan: (1-Ord) [facility], ABDOMEN/PELVIS W/O, 08/13/2023 08/04/2023 11:30 AM CDT Office Visit [facility] [address] [place] [address] Sandip Garcia, AuD Hearing Aid 08/04/2023 Travel 08/02/2023 2:30 PM CDT Orders Only [facility] [address] [place] [address] Lab, [place] [facility] 08/02/2023 Travel 08/02/2023 Orders Only [facility] [address] [facility] [address] Cesar Mccollum MD <No scans attached> 07/21/2023 8:55 AM CDT Office Visit [facility] [address] [place] [address] Cesar Mccollum MD Medicare ANNUAL (subsequent) Visit (83 year old); Post Procedure (Uteretal stent exchange) 07/21/2023 Travel 07/18/2023 10:00 AM CDT Anesthesia Event [facility] [address] [place] [address] Leonardo Frankel MD Purdy, Adam John, GAVIN 07/18/2023 9:45 AM CDT - 07/18/2023 10:54 AM CDT Surgery [facility] [address] [place] [address] Nicola Mcgarry MD CYSTOSCOPY EXCHANGE, RIGHT URETERAL STENT 07/18/2023 7:41 AM CDT - 07/18/2023 3:26 PM CDT Hospital Encounter [facility] [address] [place] [address] Nicola Mcgarry MD Other hydronephrosis (Primary Dx) Discharge Disposition: Home Self Care 07/18/2023 Travel 07/15/2023 8:20 AM CDT Preop Visit [facility] [address] [place] [address] Shannan Bain, Pre-Op Exam (/BLADDER SURGERY [facility] MCGARRY 07/18/23) 07/15/2023 Travel 07/11/2023 Orders Only [facility] Scanner 1 scan: (1-Ord) [facility] CLINICAL LAB[facility] REPORT, 07/11/2023 from Last 3 Months Immunizations Name Administration Dates Next Due COVID-19 Vaccine Spikevax (M oderna 50mcg/0.5mL) 12YO+ 0316-1919 Formula PF 07/21/2023,03/08/2023 COVID-19 vaccine (Hired NTech 30mcg/0.3mL) 12YO+ BIVALENT PF, MDV 09/13/2022,01/28/2022 COVID-19 vaccine (Hired NTech 30mcg/0.3mL) 12YO+ DAYRON-SUCROSE PF, MDV 08/26/2021 COVID-19 vaccine (Hired [employer] 30mcg/0.3mL) PF, MDV 01/13/2021,06/17/2020,2020 Influenza, Inactivated AIIV4 [...] Never Smokeless Tobacco: Never Tobacco Cessation:Counseling Given: Yes Alcohol Use Standard Drinks/Week Comments Not Currently [...] Sign Reading Time Taken Comments Blood Pressure 118/75 10/04/2023 1:10 PM CDT Pulse 70 10/04/2023 1:10 PM CDT Temperature 37.1 ??C (98.7 ??F) 10/04/2023 11:51 AM C DT Respiratory Rate 16 10/04/2023 11:51 AM CDT Oxygen Saturation 97% 10/04/2023 1:10 PM CDT Inhaled Oxygen Concentration - - Weight 81.6 kg (180 lb) 10/04/2023 1:10 PM CDT Height 177.1 cm (5' 9.72) 07/21/2023 9:05 AM CD T Body Mass Index 26.03 07/21/2023 9:05 AM CDT Plan of Treatment Upcoming Encounters Date Type Department Care Team (Late st Contact Info) Description 10/08/2023 Home Care Visit [address] [address] 10/10/2023 4:00 PM CDT Home Care Visit [address] [address] Deonna Oliveira, [address] [address] 10/17/2023 3:00 AM CDT Home Care Visit [address] [address] Raffy Carter, PT [address] [place] [address] 10/20/2023 10:35 AM CDT Office Visit [facility] [address] [place] [address] Cesar Mccollum MD [address] [place] [address] 10/21/2023 3:00 AM CDT Home Care Visit [address] [address] Raffy Carter, PT [address] [place] [address] 10/24/2023 3:00 AM CDT Home Care Visit [facility] [address] [place] [address] Raffy Carter N, PT [address] [place] [address] 10/28/2023 3:00 AM CDT Home Care Visit [facility] [address] [place] [address] Raffy Carter, PT [address] [place], [place] [id number] Health Maintenance Due Date Last Done Comments [...] Completed 4 Medical Devices Implanted Type Area Rock Duster Device Identifier Shelf Expiration Date Model / Serial / Lot Stent Uret [id number] Contour - [id number] Implanted:Qty: 1 on 07/18/2023 by Nicola Mcgarry MD at [facility] Right: Ureter [facility] 02/27/2026 [id number] / / [id number] Procedures Procedure Name Priority Date/Time Associated Diagnosis Comments ECHO TTE COMPLETE WO CONTRAST DEBBI 10/06/2023 1:34 PM CDT Coronary artery disease, unspecified vessel or lesion type, unspecified whether angina present, unspecified whether [place] or transplanted heart EKG 12 LEAD Routine 10/04/2023 2:15 PM CDT Coronary artery disease, unspecified vessel or lesion type, unspecified whether angina present, unspecified whether [place] or transplanted heart ND READING EKG - NO CHARGE, COMP ONLY Routine 10/04/2023 2:14 PM CDT Coronary artery disease, unspecified vessel or lesion type, unspecified whether angina present, unspecified whether [place] or transplanted heart CBC WITH AUTO DIFFERENTIAL Routine 09/22/2023 10:39 [...] exam SCAN-LABORATORY REPORT 07/11/2023 12:00 AM CDT from Last 3 Months Results * ECHO TTE COMPLETE WO CONTRAST (10/06/2023 1:34 PM CDT) AORTIC VALVE MEAN PG 10 mmHg EJECTION FRACTION 60 % PEAK TR VELOCITY 2.8 m/s LVEDD 4.2 cm EJECTION FRACTION 65 - 70% Anatomical Region Laterality Modality Ultrasound 10/06/2023 12:5 9 PM CDT Narrative 10/06/2023 2:17 PM CDT ECHOCARDIOGRAM SHYAM SANDS ? Accession#: ?? [id number] : ?1940 83 years Study Date: ?? 10/06/2023 12:59:18 PM Gender: M ?BP: ? 131/72 mmHg Height: 175.26 cm ?BSA: ?1.98 m? ? ? Weight: 81.65 kg ? Tech: ? MBF ? Referring MD: SOULEYMANE MILLER Site: ? [facility] Reading Location: Mobile OP Patient Location: Outpatient. Procedure: 2D, Color Doppler and Spectral Doppler. Indication for study: CAD Cardiac Rhythm: Regular.Study quality: Fair. Final Impressions: 1. Normal LV size, mildly increased wall thickness, normal global systolic function with an estimated EF of 65 - 70%. 2. Sigmoid appearing septum. 3. Right ventricular cavity size is normal, global systolic RV function is normal. 4. The aortic valve is trileaflet and sclerotic, mild stenosis and no regurgitation. The aortic valve peak velocity is 2.0 m/s, the peak gradient is 16 mmHg, and the mean gradient is 10 mmHg. The aortic valve area is 1.70 cm? ? ? with a dimensionless index of 0.49. The stroke volume index is 33.8 ml/m? ? ?. 5. The mitral valve is sclerotic, mild mitral regurgitation. Chamber Sizes and Function Normal left ventricular size, mildly increased wall thickness, normal global systolic function with an estimated EF of 65 - 70%. Left atrial size is normal. Right ventricular cavity size is normal, global systolic RV function is normal. The right atrium is normal. The pulmonary artery is of normal size and origin. The sinus of Valsalva is normal sized. The ascending aorta is normal sized. Valves, RV Pressures and Diastolic Function The aortic valve is trileaflet and sclerotic, mild stenosis and no regurgitation. The mitral valve is sclerotic, mild mitral regurgitation. Spectral Doppler shows Grade 1 pattern of LV diastolic filling. The tricuspid valve is normal in structure. Tricuspid regurgitation is mild regurgitation. The tricuspid regurgitant velocity is 2.8 m/s, the estimated right ventricular systolic pressure is 31 mmHg plus right atrial pressure. The pulmonic valve is normal. Mild pulmonary regurgitation. Masses, Effusion, Shunts There is no pericardial effusion. The inferior vena cava is normal sized, respiratory size variation greater than 50%. No left to right shunting was detected by limited color flow Doppler interrogation of the interatrial septum. MEASUREMENTS AND CALCULATIONS 2-D Measurements and LV Function: LVID (d) 4.2 cm LV FS% (2D) ?? 48 % LVID (s) 2.2 cm LVOT diameter 2.1 cm IVS (d) ??1.4 cm HR ?67 bpm LVPW (d) 1.3 cm LA Vol index ??30 ml/m2 Ao Sinus 3.3 cm RV Max 4C (d) 3.7 cm Asc Ao ?? 3.7 cm Diastology: Mitral ?Tissue Doppler E Peak 0.6 m/s ??e', Septum ? 0.06 m/s A Peak 0.8 m/s ??e', Lateral ?0.09 m/s E/A ?0.8 ?E/e' Average ?? 8.30 DT ? 243 msec Aortic Valve: Vmax ? 2.0 m/s ??WILLIE (V) ?? 1.74 cm? ? ? VTI ?0.39 m ?? WILLIE (I) ?? 1.70 cm? ? ? LVOT V max 1.0 m/s ??Max PG ?16 mmHg LVOT VTI ?? 0.19 m ?? Mean PG ?? 10 mmHg SV ? 67 ml ?Dim Index 0.49 SV index ?? 34 ml/m? ? ? CO ?4.5 l/min ?CI ?2.3 l/min/m? ? ? Mitral Valve: MVA ?3.1 cm? ? ? MV P 1/2 70 msec Tricuspid Valve and estimated PA pressures: TR Vmax 2.8 m/s TAPSE 2.0 cm TR maxG 31 mmHg Pulmonic Valve: PADP 6 mmHg . This study was interpreted by an [facility] accredited facility. ??Final ?? Procedure Note Manav Feliciano MD - 10/06/2023 ECHOCARDIOGRAM SHYAM SANDS : 1940 83 years Study Date: 10/06/2023 12:59:18 PM Gender: M BP: 131/72 mmHg Height: 175.26 cm BSA: 1.98 m? ? ? Weight: 81.65 kg Tech: [facility] Referring MD: SOULEYMANE MILLER Site: [facility] Reading Location: [place] OP Patient Location: Outpatient. Procedure: 2D, Color Doppler and Spectral Doppler. Indication for study: CAD Cardiac Rhythm: Regular.Study quality: Fair. Final Impressions: 1. Normal LV size, mildly increased wall thickness, normal globalsystolic function with an estimated EF of 65 - 70%. 2. Sigmoid appearing septum. 3. Right ventricular cavity size is normal, global systolic RV functionis normal. 4. The aortic valve is trileaflet and sclerotic, mild stenosis and noregurgitation. The aortic valve peak velocity is 2.0 m/s, the peakgradient is 16 mmHg, and the mean gradient is 10 mmHg. The aortic valvearea is 1.70 cm? ? ? with a dimensionless index of 0.49. The stroke volumeindex is 33.8 ml/m? ? ?. 5. The mitral valve is sclerotic, mild mitral regurgitation. Chamber Sizes and Function Normal left ventricular size, mildly increased wall thickness, normalglobal systolic function with an estimated EF of 65 - 70%. Left atrialsize is normal. Right ventricular cavity size is normal, global systolicRV function is normal. The right atrium is normal. The pulmonary artery isof normal size and origin. The sinus of Valsalva is normal sized. Theascending aorta is normal sized. Valves, RV Pressures and Diastolic Function The aortic valve is trileaflet and sclerotic, mild stenosis and noregurgitation. The mitral valve is sclerotic, mild mitral regurgitation.Spectral Doppler shows Grade 1 pattern of LV diastolic filling. Thetricuspid valve is normal in structure. Tricuspid regurgitation is mildregurgitation. The tricuspid regurgitant velocity is 2.8 m/s, theestimated right ventricular systolic pressure is 31 mmHg plus right atrialpressure. The pulmonic valve is normal. Mild pulmonary regurgitation. Masses, Effusion, Shunts There is no pericardial effusion. The inferior vena cava is normal sized,respiratory size variation greater than 50%. No left to right shunting wasdetected by limited color flow Doppler interrogation of the interatrialseptum. MEASUREMENTS AND CALCULATIONS 2-D Measurements and LV Function: LVID (d) 4.2 cm LV FS% (2D) 48 % LVID (s) 2.2 cm LVOT diameter 2.1 cm IVS (d) 1.4 cm HR 67 bpm LVPW (d) 1.3 cm LA Vol index 30 ml/m2 Ao Sinus 3.3 cm RV Max 4C (d) 3.7 cm Asc Ao 3.7 cm Diastology: Mitral Tissue Doppler E Peak 0.6 m/s e', Septum 0.06 m/s A Peak 0.8 m/s e', Lateral 0.09 m/s E/A 0.8 E/e' Average 8.30 DT 243 msec Aortic Valve: Vmax 2.0 m/s WILLIE (V) 1.74 cm? ? ? VTI 0.39 m WILLIE (I) 1.70 cm? ? ? LVOT V max 1.0 m/s Max PG 16 mmHg LVOT VTI 0.19 m Mean PG 10 mmHg SV 67 ml Dim Index 0.49 SV index 34 ml/m? ? ? CO 4.5 l/min CI 2.3 l/min/m? ? ? Mitral Valve: MVA 3.1 cm? ? ? MV P 1/2 70 msec Tricuspid Valve and estimated PA pressures: TR Vmax 2.8 m/s TAPSE 2.0 cm TR maxG 31 mmHg Pulmonic Valve: PADP 6 mmHg . This study was interpreted by an [facility] accredited facility. Final Souleymane Miller MD ECHO ORD * EKG 12 LEAD (10/04/2023 2:15 PM CDT) Souleymane Miller MD EKG ORD * ND READING EKG - NO CHARGE, COMP ONLY (10/04/2023 2:14 PM CDT) Souleymane Miller MD PB - PROVIDER READ INGS * (ABNORMAL) CBC WITH AUTO DIFFERENTIAL (09/22/2023 10:39 AM CDT) Only the most recent of2 resultswithin the time period is included. WHITE BLOOD COUNT 11.0 4.5 - 11.0 thou/cu mm 09/22/2023 10:46 AM CDT [facility] RED BLOOD COUNT 2.81(L) 4.30 - 5.90 mil/cu mm 09/22/2023 10:46 AM CDT [facility] HEMOGLOBIN 8.0(L) 13.5 - 17.5 g/dL 09/22/2023 10:46 AM CDT [facility] HEMATOCRIT 25.2(L) 37.0 - 53.0 % 09/22/2023 10:46 AM CDT [facility] MCV 90 80 - 100 fL 09/22/2023 10:46 AM CDT [facility] MCH 28.5 26.0 - 34.0 pg 09/22/2023 10:46 AM CDT [facility] MCHC 31.7(L) 32.0 - 36.0 g/dL 09/22/2023 10:46 AM CDT [facility] RDW 17.5(H) 11.5 - 15.5 % 09/22/2023 10:46 AM CDT [facility] PLATELET COUNT 466(H) 140 - 440 thou/cu mm 09/22/2023 10:46 AM CDT [facility] MPV 8.9 6.5 - 11.0 fL 09/22/2023 10:46 AM CDT [facility] % NEUT 86.3 % 09/22/2023 10:46 AM CDT [facility] % LYMPH 6.6 % 09/22/2023 10:46 AM CDT [facility] % MONO 5.8 % 09/22/2023 10:46 AM CDT [facility] % EOS 1.2 % 09/22/2023 10:46 AM CDT [facility] % BASO 0.1 % 09/22/2023 10:46 AM CDT [facility] ABSOLUTE NEUTROPHILS 9.5(H) 1.7 - 7.0 thou/cu mm 09/22/2023 10:46 AM CDT [facility] ABSOLUTE LYMPHOCYTES 0.7(L) 0.9 - 2.9 thou/cu mm 09/22/2023 10:46 AM CDT [facility] ABSOLUTE MONOCYTES 0.6 <0.9 thou/cu mm 09/22/2023 10:46 AM CDT [facility] ABSOLUTE EOSINOPHILS 0.1 <0.5 thou/cu mm 09/22/2023 10:46 AM CDT [facility] ABSOLUTE BASOPHILS 0.0 <0.3 thou/cu mm 09/22/2023 10:46 AM CDT [facility] Blood BLOOD SPECIMEN / Unknown Venipuncture / Unknown 09/22/2023 10:39 AM CDT 09/22/2023 10:43 AM CDT Letty Mera MD HEMATOLOGY [facility] [address] [place] [address], [place] [phone] * (ABNORMAL) URINE CULTURE (09/21/2023 4:40 PM CDT) Only the most recent of2 resultswithin the time period is included. CULTURE RESULT(A) 09/24/2023 9:54 AM CDT [facility] CULTURE >100,000 CFU/mL Shirin albicans 09/24/2023 9:54 AM CDT [facility] Urine URINE SPECIMEN / Unknown Non-Blood / Unknown 09/21/2023 4:40 PM CDT 09/21/2023 4:41 PM CDT Letty Mera MD MICROBIOLO GY [facility] [address] [place] [address], [place] * XR CHEST 2 VIEWS PA [...] 2:26 PM CDT) Only the most recent of2 resultswithin the time period is included. Pathologist [facility] HEMOGLOBIN 10.1(L) 13.5 - 17.5 g/dL 08/02/2023 2:31 PM CDT [facility] MCV 89 80 - 100 fL 08/02/2023 2:31 PM CDT [facility] Blood BLOOD SPECIMEN / Unknown Venipuncture / Unknown 08/02/2023 2:26 PM CDT 08/02/2023 2:26 PM CDT Cesar Mccollum MD HEMATOLOGY Performing Organization Address City/[facility]/ZIP Co de Phone Number [facility] [address] [place] [address], [place] [phone] * HEMOGLOBIN A1C SCREENING (07/21/2023 9:58 AM CDT) [facility] HEMOGLOBIN A1C SCREENING 5.4 <=6.4 % 07/21/2023 5:56 PM CDT [facility] Blood BLOOD SPECIMEN / Unknown Venipuncture / Unknown 07/21/2023 9:58 AM CDT 07/21/2023 10:00 AM CDT Narrative [facility] - 07/21/2023 5:56 PM CDT ? (<5.7%) ?Normal ? (5.7% to 6.4%) ? Indicates prediabetes ? (>=6.5%) ? Confirms diabetes Falsely low levels may be seen with: Recent Transfusion, Recent Significant Blood Loss, Hemolytic Diseases, or Falsely elevated levels may be seen with: Untreated Anemias, Splenectomy Cesar Mccollum MD CHEMISTRY [facility] [address] [place] [address], [place] * XR RETROGRADE PYELOGRAM W/WO KUB (07/18/2023 11:04 AM CDT) Anatomical Region Laterality Modality KIDNEYS, Abdomen Digital Radiogr aphy Narrative 07/18/2023 10:10 AM CDT 12 seconds fluoroscopy time was provided. ??See operative/procedure report for further information. Nicola Mcgarry MD GENERAL IMAGING * HCHG MASK PR5 (07/18/2023 10:17 AM CDT) Narrative Fred Kapadia CHEMICAL TEST ENGINEER - 07/18/2023 10:17 AM CDT Fred Kapadia [...] - 145 mmol/L 07/15/2023 5:14 PM CDT [facility] POTASSIUM 4.7 3.5 - 5.1 mmol/L 07/15/2023 5:14 PM CDT [facility] CHLORIDE 106 98 - 107 mmol/L 07/15/2023 5:14 PM CDT [facility] CO2,TOTAL 24 22 - 29 mmol/L 07/15/2023 5:14 PM CDT [facility] ANION GAP 11 5 - 18 07/15/2023 5:14 PM CDT [facility] GLUCOSE 91 70 - 99 mg/dL 07/15/2023 5:14 PM CDT [facility] CALCIUM 9.3 8.8 - 10.2 mg/dL 07/15/2023 5:14 PM CDT [facility] BUN 22 8 - 23 mg/dL 07/15/2023 5:14 PM CDT [facility] CREATININE 1.32(H) 0.70 - 1.20 mg/dL 07/15/2023 5:14 PM CDT [facility] BUN/CREAT RATIO 17 10 - 20 5:14 PM CDT [facility] [facility] eGFR 53(L) >90 mL/min/1.7 3m2 07/15/2023 5:14 PM CDT [facility] Comment:As of 2021, eG [...] 9:40 AM CDT Shannan Bain DO CHEMISTRY [facility] [address] [place] [address], * SCAN-LABORATORY REPORT (07/11/2023 12:00 AM CDT) Scanner OTHER from Last 3 Months Advance Directives * [...] Code Status Discussion: Reviewed Preferences Care Teams Direct Mail Marketer Relationship Specialty Start Date End Date Cesar Mccollum MD [address] [place] [id number] PCP - General Family Practice 03/04/20 Nicola Mcgarry MD [address] [place] [phone] Surgery - Urology 03/13/20 Mireya Tan MD [address] [place] [phone] Hematology - Pathology 03/13/20 [facility], [address] [place] [address] 09/29/23
--- OUTSIDE RECORDS SUMMARY | 2023-10-07 12:49 | XMS_ITS | Encounter Summary ---
Author Organization [facility] Address [address] [place] [address] Care Team Providers Care Funeral Director And Embalmer Name Role Phone Elsewhere, Pcp Primary Care Provider Unavailabl e Encounter Details Date Type Department Care Team (Late st Contact Info) Description 08/15/2023 7:55 AM CDT - 08/15/2023 11:23 AM CDT Surgery RST ROMB MAIN OR [address] [place] [address] Boubacar Brock M.D. [address] [place] [id number] Palliative EXPLORATORY LAPAROTOMY, CYSTOTOMY CLOSURE, RIGHT URETERAL STENT EXCHANGE Social History Tobacco Use Types Packs/Day Years Used Date Smoking Tobacco: Never Smokeless Tobacco: Never [facility] Utilities Answer Date Recorded In the [...] your living situation today? I have a [facility] to live 08/13/2023 Sex and Gender [...] DISCHARGE SUMMARY BRIEF OVERVIEW Hospital: [facility] Discharge Provider: Boubacar Brock M.D. [...] M.D.Wen, Lexiaochuan, M.D.Premo, Hayley, M.D.Botkin, Hannah, M.D. [facility] ROMB OR DISCHARGE DISPOSITION Home or Self Care [1] ACTIVE ISSUES REQUIRING FOLLOW UP OUTPATIENT FOLLOW UP Scheduled Appointments 08/26/2023 1:00 PM KESHIA VERAS [facility] Radiology For appointment details refer to [...] he felt completely obstructed and presented [place] Attempted Tabares insertion but bladder irrigation was unsuccessful on multiple attempts. Hung 1U pRBC's. Given some volume and transferred to [facility] ICU ICU Course Urology consulted and [...] CONSULT TO NUTRITION SUPPORT IP CONSULT TO ARBORIST CLIMBER WOUND CARE CONDITION AT DISCHARGE stable Discharge [...] he felt completely obstructed and presented to [place]. [place] Attempted Tabares insertion but bladder irrigation was unsuccessful on multiple attempts. Hung 1U pRBC's. Given some volume and transferred to [facility] ICU ICU Course Urology consulted and [...] PM CDT You were discharged from the [facility] Urology Surgery - Chief A - Blue Service. Please identify this service name if you call with questions after hospitalization. * Attachments The following attachments cannot be sent through Care Everywhere. * Bacitracin (On the skin) (Persian) * Cefdinir (By mouth) (Persian) * Trospium (By mouth) (Persian) documented in this encounter Medications at Time [...] another provider. * Chary Diamond M.A., O.T., [facility] - 08/26/2023 10:21 AM CDT Occupational Therapy [facility] Inpatient Treatment SUBJECTIVE Patient's Name: Kalen Vega Referring/Attending Provider: Boubacar Brock M.D. Reason for Referral: Occupational Therapy Evaluation and Treatment History of Present Illness: Kalen Vega is a 83 y.o. male who was admitted to [facility] in [place] on 08/13/2023 for Hematuria [R31.9]. Precautions Other Precautions: Abdominal, fall precautions, monitor tachycardia and hypertension Pain Assessment: Pain not reported during session. Subjective Comments: Agreeable to therapy session. Team Communication: The patient's status was discussed and coordination of care occurred with RN, Family/Caregiver, nurse tech Family/Caregiver Present: son and [id number]-abl OBJECTIVE Vital Signs: Vitals not formally assessed [...] through pant leg first. - Adaptive Equipment: Truck Cleaner TOILETING - Assist Level: Maximal Assist - [...] (Edge of bed) - Assist Level: Modified Lavinia - Equipment: bed rail - Therapist Delivery: assessed, instructed, assisted - Adaptive Equipment: leg cardio clinician trialed ; however, patient able to move [...] extremity (stiff knee) first. Recommended adaptive equipment: Truck Cleaner. Toileting - Patient instructed on accurate positioning [...] maximal exertion Handouts provided: Bathroom Safety Equipment [id number], Techniques to Help You Save Energy [id number] Patient was left in bedside chair with [...] Usama 6C -room 121 ASSESSMENT / PLAN TECHNICAL CONSULTANTclient development manager met with patient and son Kar to inform them of home health care acceptance for PT/OT. Patient's son Kar and yvzksqav-ov-wev will provide transportation at the time of discharge. PLAN Patient to discharge home with home health care. Home Medical Care - Admitted Since 08/13/2023 Service Provider Selected Services Address Phone Fax Patient Preferred Collaborate [place] [facility] [address] [facility] [phone] -- Cfo Controller: Ghazal NURSING: - Complete documentation in the Discharge Navigator including Nursing Report Info and Facility/NextLevel of Care Info - Call report and arrange for the patient's first visit - Send After Visit Summary and required packet of dismissal information with patient, including advance directive. PRIMARY SERVICE: - Please provide a non-[place] home health order for: physical therapy and [...] be provided by family--patient's son Kar and vryqiwhr-fo-iar. 3. repeater operator recommended reaching out to family, friends, and neighbors for assistance. 4. repeater operator provided information regarding the dismissal process. Damaris [...] Reviewed with patient #1 Hematuria Please page [facility] ([phone]) or [facility] ([phone]) Nutrition Support Service pager with questions. * Emeterio Buchanan P.T., D.P.T., [facility] - 08/25/2023 9:35 AM CDT Physical Therapy Inpatient Treatment SUBJECTIVE Patient's Name: Kalen Vega Referring/Attending Provider: Boubacar Brock M.D. Reason for Referral: Physical Therapy Evaluate and Treat History of Present Illness: Kalen Vega is a 83 y.o. male who was admitted to [facility] in [place] on 08/13/2023 for Hematuria [R31.9] Precautions Other [...] Measures: [facility] Inpatient Short Form: AM-[facility] Basic Mobility (V.2) How much help [...] 3-5 steps with a railing?: A Little AM-[facility] Basic Mobility (V.2) Raw Score: 18 AM-[facility] Basic Mobility (V.2) Standardized Score: 41.05 Interpretation: Based on scoring guidelines using the raw score value: Those going to home had an average score at or above 18 Those going to facility had an average score at or below 17 Clinicians answer the -[facility] Inpatient Short Form based on observed [...] 83 y.o. male who was admitted to [facility] in [place] on 08/13/2023 for Hematuria [R31.9]. Precautions Other [...] including figure four technique. Recommended adaptive equipment: Truck Cleaner and Sock Aid. Toileting - Patient instructed [...] and modification tools as needed including leg cardio clinician and/or bed adjustments. 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 Venegas, chief urology resident mechatronics technician. Pager during business hours: [phone] Pager after hours: [phone] * Emeterio Buchanan P.T., D.P.T., [facility] - 08/24/2023 10:46 AM CDT Physical Therapy Inpatient Treatment SUBJECTIVE Patient's Name: Kalen Vega Referring/Attending Provider: Boubacar Brock M.D. Reason for Referral: Physical Therapy Evaluate and Treat History of Present Illness: Kalen Vega is a 83 y.o. male who was admitted to [facility] in [place] on 08/13/2023 for Hematuria [R31.9] Precautions Other [...] Measures: [facility] Inpatient Short Form: -[facility] Basic Mobility (V.2) How much help [...] 3-5 steps with a railing?: A Lot -[facility] Basic Mobility (V.2) Raw Score: 17 -[facility] Basic Mobility (V.2) Standardized Score: 39.67 [...] baseline. PT Goal #2: Patient will perform jir-lv-xeyvv transfer with modified independence and least restrictive [...] Total Kcal/day: 1370 based on 84 % [place] Non-standard additives: K 80 mEq Phos 30 [...] magnesium, phosphorus tomorrow. #1 Hematuria Please page [facility] ([phone]) or [facility] ([phone]) Nutrition Support Service pager with questions. 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 Venegas, chief urology resident mechatronics technician. Pager during business hours: [phone] Pager after hours: [phone] * Deanne Mike L.G.S.W., M.S.W. - 08/23/2023 11:25 AM CDT SUBJECTIVE Social Work spoke with [facility]. They cannot provide mcfp at this time. They can provide OT/PT [...] discharge date of 08/24/23-08/26/23. Referrals sent: [facility] [place] - [facility] (out of service area) [facility] ASSESSMENT / PLAN ASSESSMENT Patient has robust family support including a son living with him. PLAN Patient desires home health care through [facility]. Social Work will continue to follow to provide support. Social Work will continue to assist with discharge needs. Shorty Sun, M.S.W. 08/23/23 * Jazmine Benítez, RRitesh., C.W.C.N. - 08/23/2023 11:10 AM CDT JACKSON [...] stent and hematuria who is transferred from [place] ED with 3 days of hematuria and [...] None Unable to Measure Y *Wound Bed Closed;[place];Red Tissue Exposed None Odor None *Exudate Amount [...] 30 minutes > 30 minutes Ongoing management Nursing;Wound/gun mechanic Partial head to toe skin assessment completed [...] AM CDT * Emeterio Buchanan P.T., D.P.T., [facility] - 08/23/2023 11:02 AM CDT Physical Therapy Inpatient Treatment SUBJECTIVE Patient's Name: Kalen Vega Referring/Attending Provider: Boubacar Brock M.D. Reason for Referral: Physical Therapy Evaluate and Treat History of Present Illness: Kalen Vega is a 83 y.o. male who was admitted to [facility] in [place] on 08/13/2023 for Hematuria [R31.9] Precautions Other [...] 3-5 steps with a railing?: A Lot -[facility] Basic Mobility (V.2) Raw Score: 17 [facility] Basic Mobility (V.2) Standardized Score: 39.67 Interpretation: [...] baseline. PT Goal #2: Patient will perform cyg-rq-gmrys transfer with modified independence and least restrictive [...] D.P.T., [facility]CS * Demarco Salazar Pharm.D., R.Ph., [facility] - 08/23/2023 10:19 AM CDT [...] Total Kcal/day: 1370 based on 84 % [place] Non-standard additives: MAX chloride Thiamine 100 mg [...] magnesium, phosphorus tomorrow. #1 Hematuria Please page [facility] ([phone]) or [facility] ([phone]) Nutrition Support Service pager with questions. * Ivy Hernandez O.T. - 08/23/2023 8:30 AM CDT Occupational Therapy Acute Hospital Inpatient Treatment SUBJECTIVE Patient's Name: Kalen Vega Referring/Attending Provider: Boubacar Brock M.D. Reason for Referral: Occupational Therapy Evaluation and Treatment History of Present Illness: Kalen Vega is a 83 y.o. male who was admitted to [facility] in [place] on 08/13/2023 for Hematuria [R31.9]. Precautions Other [...] catheter in place draining clear yellow I/O ([id number]): 73 cc serosanguineous from the drain Seven [...] I. 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 [facility] Summary: Diet: NPO, TPN Activity: Ad [...] discussed with Dr. Venegas, chief urology resident mechatronics technician. Pager during business hours: [phone] Pager after hours: [phone] * Chary Diamond M.A., O.T., BCP - [...] [facility]. Social Work sent referral. OBJECTIVE Patient is anticipated to remain at [facility] for 3-5 days. Referrals sent: [facility] Health ASSESSMENT / PLAN ASSESSMENT Patient has robust family support including a son living with him. PLAN Patient desires home health care through [facility]. Social Work will continue to [...] 83 y.o. male who was admitted to [facility] in [place] on 08/13/2023 for Hematuria [R31.9] Precautions Other [...] 3-5 steps with a railing?: A Lot AM-[facility] Basic Mobility (V.2) Raw Score: 17 [facility] Basic Mobility (V.2) Standardized Score: 39.67 Interpretation: Based on scoring guidelines using the raw score value: Those going to home had an average score at or above 18 Those going to facility had an average score at or below 17 Clinicians answer the -[facility] Inpatient Short Form based on observed [...] baseline. PT Goal #2: Patient will perform tml-pr-oacnd transfer with modified independence and least restrictive [...] Total Kcal/day: 1370 based on 84 % [place] Non-standard additives: MAX chloride Thiamine 100 mg [...] place draining light smith colored urine I/O ([id number]): CBI on slow drip 75 cc serosanguineous [...] the long right distal ureteral stent curl. Tabarse catheter is in the bladder lumen without [...] 2.5 mg BID eliquis initiated 08/15 per [facility] med curbside recs --transition from [...] have him follow up with his local power plant operators supervisor Comorbidities: --history of DVT status post [...] discussed with Dr. Venegas, chief urology resident mechatronics technician. Pager during business hours: [phone] Pager after hours: [phone] * Qamar Jim, Pharm.D., R.Ph. - 08/21/2023 [...] place draining clear smith colored urine I/O ([id number]): 1800 cc urine output 75 cc serosanguineous [...] have him follow up with his local power plant operators supervisor Comorbidities: --history of DVT status post [...] discussed with Dr. Venegas, chief urology resident mechatronics technician. Pager during business hours: [phone] Pager after hours: [phone] * Lizette Harvey M.D. - 08/20/2023 8:08 [...] draining clear thin merlot colored urine I/O ([id number]): 240 cc p.o. intake 760 cc urine [...] 2.5 mg BID eliquis initiated 08/15 per [facility] med curbside recs --transition from [...] have him follow up with his local power plant operators supervisor Comorbidities: --history of DVT status post [...] questions or concerns. Pager during business hours: [phone] Pager after hours: [phone] * Qamar Jim, PharmJonahD., R.Ph. - 08/20/2023 [...] Jim, PharmPerla., R.Ph. * Lisa Seaman, O.T., [facility] - 08/19/2023 2:26 PM CDT Occupational Therapy [facility] Inpatient Treatment SUBJECTIVE Patient's Name: Kalen Vega Referring/Attending Provider: Boubacar Brock M.D. Reason for Referral: Occupational Therapy Evaluation and Treatment History of Present Illness: Kalen Vega is a 83 y.o. male who was admitted to [facility] in [place] on 08/13/2023 for Hematuria [R31.9]. Precautions Other [...] about patient's nutritional care please contact pager [phone] on weekdays or [phone] on weekends/holidays. NUTRITION ASSESSMENT: Mr. Vega is [...] care everywhere) ESTIMATED NEEDS: Total Calorie Needs: 2141-9647 calories/day Method to Estimate Energy Needs: kcal/kg [...] 83 y.o. male who was admitted to [facility] in [place] on 08/13/2023 for Hematuria [R31.9] Precautions Other [...] Measures: [facility] Inpatient Short Form: -[facility] Basic Mobility (V.2) How much help [...] 3-5 steps with a railing?: A Little -[facility] Basic Mobility (V.2) Raw Score: 18 -[facility] Basic Mobility (V.2) Standardized Score: 41.05 [...] Ongoing PT Goal #2: Patient will perform hkx-wz-cqrft transfer with modified independence and least restrictive [...] in place draining clear pink urine I/O ([id number]): 370 p.o. intake 1 L urine output [...] 2.5 mg BID eliquis initiated 08/15 per [facility] med curbside recs --transition from [...] have him follow up with his local power plant operators supervisor Comorbidities: --history of DVT status post [...] questions or concerns. Pager during business hours: [phone] Pager after hours: [phone] * Lisa Seaman, O.TJonah, [facility] - 08/18/2023 11:15 AM CDT Occupational Therapy [facility] Inpatient Treatment SUBJECTIVE Patient's Name: Kalen Vega Referring/Attending Provider: Boubacar Brock M.D. Reason for Referral: Occupational Therapy Evaluation and Treatment History of Present Illness: Kalen Vega is a 83 y.o. male who was admitted to [facility] in [place] on 08/13/2023 for Hematuria [R31.9]. Precautions Other [...] doffing over it last. Recommended adaptive equipment: Truck Cleaner and Sock Aid. Patient was left in bedside chair, with nursing/MERGERS AND ACQUISITIONS CONSULTANT at end of session with call [...] 83 y.o. male who was admitted to [facility] in [place] on 08/13/2023 for Hematuria [R31.9] Precautions Other [...] vital signs with primary service. Outcome Measures: AM-[facility] Inpatient Short Form: AM-[facility] Basic Mobility (V.2) [...] following coordination of care occurred with the coal handler/Caregiver Present: No Patient was left in bedside [...] Progressing PT Goal #2: Patient will perform rps-iq-gqkjq transfer with modified independence and least restrictive [...] in place draining clear pink urine I/O ([id number]): 1.2 L p.o. intake 1 L urine [...] I. [facility] [...] 2.5 mg BID eliquis initiated 08/15 per [facility] med curbside recs --transition from [...] diet later today follow up vascular medicine [facility] Summary: Diet: currently limited clears Activity: Ad kong DVT PPX: heparin drip GI PPX: Pantoprazole Bowel Regimen:N/A IVF: none Abx/Microbiology: Ceftriaxone Pain Control: Tylenol, oxycodone 08/18. Scheduled trospium Home Meds Resumed: Metoprolol, tamsulosin, rosuvastatin Held Home Meds: None Consults: None Paula Hernandez M.D. 08/18/2023 6:02 AM CDT Please page the Urology Chief Service with questions or concerns. Pager during business hours: [phone] Pager after hours: [phone] * Tayler Greenwood M.D., M.Ed. - 08/17/2023 [...] the patient follow up with his primary power plant operators supervisor at discharge we will which we [...] Ringer's Lactated Ringer's * Lisa Seaman O.T., [facility] - 08/17/2023 10:47 AM CDT Occupational Therapy [facility] Inpatient Treatment SUBJECTIVE Patient's Name: Kalen Vega Referring/Attending Provider: Boubacar Brock M.D. Reason for Referral: Occupational Therapy Evaluation and Treatment History of Present Illness: Kalen Vega is a 83 y.o. male who was admitted to [facility] in [place] on 08/13/2023 for Hematuria [R31.9]. Precautions Other [...] at or below 17 Clinicians answer the AM-[facility] Inpatient Short Form based on observed [...] in place draining clear pink urine I/O ([id number]): NG tube 200 cc Two hundred sixty-five [...] held since 08/11) -[facility] ongoing anticoagulation/antiplatelet. Theyfelt he [...] questions or concerns. Pager during business hours: [phone] Pager after hours: [phone] * Audi De Luna P.T., D.P.T. - [...] in place draining clear pink urine I/O ([id number]): NG tube 200 cc Two hundred sixty-five [...] questions or concerns. Pager during business hours: [phone] Pager after hours: [phone] * Paula Hernandez M.D. - 08/15/2023 9:09 AM CDT PROGRESS NOTE: No events. AFVSS. Pain controlled. No flatus. No further emesis overnight. Abdomen more distended than yesterday but remained soft, tender to deep palpation only, no rebound. Twenty-four Danish Alcock three-way catheter remains off CBI, draining [...] above was discussed with Dr. Brock, urology sql server consultant on-call who is in agreement with [...] Family to bring his home enzalutamide from [place] Irvin Franco Pharm.D., R.Ph. * Jakob De Paz M.D. - 08/14/2023 11:34 AM CDT PROGRESS NOTE: No events. AFVSS. Pain controlled. No flatus. Nauseous and had 2 episodes of emesis. Abdomen more distended than yesterday but remained soft, tender to deep palpation only, no rebound. Twenty-four Danish Alcock three-way catheter remains off CBI, draining [...] above was discussed with Dr. Brock, urology sql server consultant on-call who is in agreement with [...] Patient discussed with Dr. Sylvester. Page [id number] Carlos Alberto Henson M.D. PGY-1 CCM 3 [...] who have asked we place a 24 Danish 3-way urinary catheter pending evaluation. We will [...] him to present to local hospital in [place]. OSH Course: His hemoglobin was in the [...] No Food Insecurity (02/16/2022) Received from [facility], [facility] Food Insecurity Worried About Running Out of Food in the Last Year: 1 Transportation Needs: No Transportation Needs (02/16/2022) Received from [facility], [facility] Transportation Needs Lack of Transportation (Medical): 1 Housing Stability: Low Risk (02/16/2022) Received from [facility], [facility] Housing Stability Unable to Pay for [...] Dr. Sylvester and Dr. Rodriguez. Page [id number] [id number] Carlos Alberto Henson M.D. PGY-1 CCM 3 [...] As expected PRIMARY PROCEDURALIST FAY Cerna MD [phone] ASSISTANTS none COMPLICATIONS None. DRAINS None. IMPLANTS [...] peripheral vein targets. Ultrasound used for assessment: CEDU Fit Provider contacted (include name): Uro Surg [...] STENT EXCHANGE; Surgeon: Boubacar Brock M.D.; Location: [facility] ROMB OR FAMILY HISTORY No [...] 14 -- AST U/L 25 -- Radiology: @[id number]@ Swallow Assessment: No data to display ASSESSMENT / PLAN #1 Hematuria ASSESSMENT Currently we are asked to visit with Mr. Vega for consideration of parenteral nutrition. Nutrition Needs: Height: 180 cm Admission Weight: 91.2 kg (08/13/2023) Current Weight: 90.2 kg BMI (Calculated): 27.8 kg/m?? Total Calorie Needs: 0433-8886 calories/day Method to Estimate Energy Needs: [place] ( ) Weight Used for Equation Calculations: [...] on electrolytes Please call NSS pager at [phone] at [facility] or [phone] at [facility] with any additional [...] values in this interval not displayed. Radiology: @[email or web address]@ Swallow Assessment: No data to display ASSESSMENT / PLAN #1 Hematuria ASSESSMENT Currently we are asked to visit with Mr. Vega for consideration of parenteral nutrition. Nutrition Needs: Height: 180 cm Admission Weight: 91.2 kg (08/13/2023) Current Weight: 90.2 kg BMI (Calculated): 27.8 kg/m?? Total Calorie Needs: 1188-2355 calories/day Method to Estimate Energy Needs: kcal/kg [...] on electrolytes Please call NSS pager at [phone] at [facility] or [phone] at [facility] with any additional [...] stent along with other stents and apparently power plant operators supervisor in the past I recommended indefinite [...] documented in the history of present illness. [email or web address] OBJECTIVE Current Facility-Administered Medications: acetaminophen tablet 650 [...] Units/kg/hr (Dosing Weight), intravenous, Continuous, Aziza Cortez, PharmDayday, R.Ph., Last Rate: 11.9 mL/hr at 08/18/23 0806, 13Units/kg/hr at 08/18/23 08 Lactated Ringer's, 20 mL/hr, intravenous, Continuous, Frieda Garner APRN, POOLING OPERATOR, Last Rate: 20 mL/hr at 08/15/23 [...] but he can discuss this with his power plant operators supervisor at home. We need to balance [...] 83 y.o. male who was admitted to [facility] in [place] on 08/13/2023 for Hematuria [R31.9]. Relevant Medical History: Kalen Vega is a 83 y.o. 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 male who was admitted to [facility] in [place] on 08/13/2023 for Hematuria with cystotomy and [...] Min assist for mobility. Required assist for szb-xm-didta for force generation and is generally standby [...] Ongoing PT Goal #2: Patient will perform mqw-kf-ohyrd transfer with modified independence and least restrictive [...] - 08/16/2023 10:01 AM CDT Occupational Therapy [facility] Inpatient Evaluation/Treatment SUBJECTIVE Patient's Name: Kalen Vega Referring/Attending Provider: Boubacar Brock M.D. Reason for Referral: Occupational Therapy Evaluation and Treatment PERTINENT MEDICAL / SURGICAL HISTORY: Kalen Vega has no past medical history on file. Kalen Vega has no past surgical history on file. History of Present Illness: Kalen Vega is a 83 y.o. male who was admitted to [facility] in [place] on 08/13/2023 for Hematuria [R31.9]. Relevant Medical [...] with RN, PT Family/Caregiver Present: Son and jibsbvmo-mq-mow. Home Living and Equipment: Lives with: Spouse/Significant [...] walker, Single point cane Adaptive Equipment Owned: Truck Cleaner, Long Handled Shoe Horn Other DME Owned: Regular flat bed Prior Level of Function and Mobility: Basic Activities of Daily Living: Independent Instrumental Activities of Daily Living: Required Assistance: Laundry son assists with laundry and cooking Functional Mobility: Independent Driving: Yes Occupational Role: Retired Leisure Interests: watch movies, plays [employer] train, meets friends for breakfast. Patient/Caregiver Goals: [...] all are a great support. 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 Patient expressed understanding and was [...] engaged in conversation with his family when oncology social worker entered the room. He was [...] locally at approximately 3:00 a.m. a 22 Danish three-way catheter was placed and CBI wasinitiated. Unfortunately he clotted off the catheter multiple times despite manual irrigations, started to develop hypotension and tachycardia and [facility] He relays the above [...] non-distended, non-peritonitic Extremities: No edema : 22 Danish three-way Tabares catheter draining a minimal amount [...] urinary retention Given his non draining 22 Danish three-way catheter the Urology techs and I subsequently exchanged this for a 24 Danish three-way Alcock in the usual sterile fashion. [...] to follow [place] [phone] with questions or concerns Sixto Cain M.D. [...] peripheral vein targets. Ultrasound used for assessment: Bilneur VenCrzyfish Fit Provider contacted (include name): Uro Surg [...] CDT Patient Transfer Note Patient transferred to: [facility] Room: [facility] Accompanied by: JAMEL Garcia Report called? YES [...] signs? YES * Sixto Teague R.R.T., L.R.T., USER INTERFACE DESIGNER-[facility] - 08/14/2023 7:00 AM CDT Patient [...] the last 24hours. Sixto Teague R.R.T., L.R.T., USER INTERFACE DESIGNER-[facility] 08/14/23 7:00 AM CDT Electronically signed by Sixto Teague R.R.T., L.R.T., USER INTERFACE DESIGNER-[facility] at 08/14/2023 7:02 AM CDT * [...] Bladder Spontaneous Post-op Diagnosis Rupture Bladder Spontaneous Supervisor Cook Room A reference assistant actively participated and was necessary for [...] the supine flexed position. His existing 24 Danish three-way Tabares catheter was noted to be [...] additional tissue for additional coverage. A 24 Danish three-way catheter was placed with 15 cc in the balloon. This irrigated to light clear pink. A 15 Danish YARELI drain wasplaced into the pelvis exiting left lower quadrant. The fascia was closed with interrupted and [id number] 0 PDS. Fat was approximated using 3-0 [...] RN, CPN, CCDS, CCS, CRC Clinical Documentation Bill Sorter Query created by: ELMER Barker, RN, CPN, [...] stent and hematuria who is transferred from [place] ED with 3 days of hematuria & [...] RN, CPN, CCDS, CCS, CRC Clinical Documentation Bill Sorter Query created by: ELMER Barker, RN, CPN, [...] he felt completely obstructed and presented to [place] [facility]. [place] Course Attempted Tabares insertion but bladder irrigation was unsuccessful on multiple attempts. Hung 1U pRBC's. Given some volume and transferred to [facility] ICU ICU Course Urology consulted and [...] CDT Procedure visit Department of Urology in [place], [place] [address] [place] [id number] Paula Hernandez M.D. [address] [place] [address] Pending Results Name Type Priority Associated Diagnoses [...] ID) (08/26/2023 6:50 AM CDT) Pathologist [facility] ABORh O Pos Not applicable 08/26/2023 7:16 AM CDT STRM Antibody Screen Negative Negative 08/26/2023 7:29 AM CDT STRM Type & Screen Expiration 08/29/2023 23:59 08/26/2023 7:16 AM CDT STRM Testing Location [place] DEFAULT 08/26/2023 6:57 AM CDT STRM Blood (Blood, Venous) 08/26/2023 6:50 AM CDT 08/26/2023 6:57 AM CDT Narrative Authorizing Provider Result Abdifatah Hernandez M.D. LAB BLOOD BANK TEST ORDERABLES [facility] [address] [place] [address], [facility] [address] [place] [address] * (ABNORMAL) CBC without Differential (08/26/2023 3:20 [...] CDT Corin Ring M.D. LAB BLOOD ADD-ON [facility] [address] [place] [address], [facility] [address] [place] [address] * Magnesium (08/26/2023 3:20 AM CDT) Magnesium, S 2.1 1.7 - 2.3 mg/dL 08/26/2023 4:04 AM CDT DTL Blood (Blood, Venous) 08/26/2023 3:20 AM CDT 08/26/2023 3:50 AM CDT Boubacar Brock M.D. LAB BLOOD ADD-ON [facility] 200 [place] [address], [facility] DTL [facility][note 3] 200 [place] [address] * (ABNORMAL) Renal Function Panel (08/26/2023 3:20 [...] CDT Boubacar Brock M.D. LAB BLOOD ADD-ON [facility] [address] [place] [address], [facility] 200 [place] [address] * Heparin Anti-Xa Assay (08/26/2023 3:20 AM CDT) [facility] Heparin Anti-Xa, P 0.26 IU/mL 2023 [...] Hoyt M.D. LAB BLOOD NON ADD -ON [facility] 200 [place] [address], [facility] 200 [place] [address] * (ABNORMAL) CBC without Differential (08/25/2023 3:24 AM CDT) [facility] Hemoglobin 8.3(L) 13.2 - 16.6 [...] CDT Corin Ring M.D. LAB BLOOD ADD-ON [facility] [address] [place] [address], [facility] [address] [place] [address] * (ABNORMAL) Renal Function Panel (08/25/2023 3:24 AM CDT) Pathologist [facility] Potassium, S 4.1 3.6 - 5.2 mmol/L [...] LAB BLOOD ADD-ON Performing Organization Address [facility]/ZIP Co de Phone Number [facility] 200 [place] [address] * Magnesium (08/25/2023 3:24 AM CDT) Magnesium, S 2.2 1.7 - 2.3 mg/dL 08/25/2023 4:36 AM CDT DTL Blood (Blood, Venous) 08/25/2023 3:24 AM CDT 08/25/2023 4:19 AM CDT Boubacar Brock M.D. LAB BLOOD ADD-ON Performing Organization Address [facility] Co de Phone Number [facility] 200 [place] [address], [place] [address] * Heparin Anti-Xa Assay (08/25/2023 3:24 AM [...] LAB BLOOD NON ADD-ON Performing Organization Address City/[facility]/ZIP Co de Phone Number [facility] [address] [place] [address], [facility] DTL [facility][note 3] [address] [place] [address] * (ABNORMAL) CBC without Differential (08/24/2023 5:28 [...] BLOOD ADD-ON Performing Organization Address City/[facility]/ZIP Co de Phone Number [facility] 200 [place], [place] [address] 200 [place] [address] * Magnesium (08/24/2023 5:28 AM CDT) Magnesium, S 2.3 1.7 - 2.3 mg/dL 08/24/2023 6:19 AM CDT DTL Blood (Blood, Venous) 08/24/2023 5:28 AM CDT 08/24/2023 6:00 AM CDT Boubacar Brock M.D. LAB BLOOD ADD-ON [facility] [address] [address] * (ABNORMAL) Renal Function Panel (08/24/2023 5:28 [...] LAB BLOOD ADD-ON Performing Organization Address [facility]/ZIP Co de Phone Number [facility] [address] [place] [address] * Heparin Anti-Xa Assay (08/24/2023 5:28 AM [...] LAB BLOOD NON ADD-ON Performing Organization Address City/[facility]/ZIP Co de Phone Number [facility] [address] [place], [place] [phone] [place] [address] [facility] 200 [place] [address] * (ABNORMAL) Potassium (08/23/2023 9:58 PM CDT) Pathologist [facility] Potassium, S 3.5(L) 3.6 - 5.2 mmol/L 08/23/2023 10:45 PM CDT DT Blood (Blood, Venous) 08/23/2023 9:58 PM CDT 08/23/2023 10:30 PM CDT Boubacar Brock M.D. LAB BLOOD ADD-ON [facility] 200 [place], [place] [address] [place] [address] 200 [place] [address] * (ABNORMAL) Phosphorus Inorganic (08/23/2023 9:58 PM CDT) [facility] Phosphorus (Inorganic), S 2.1(L) 2.5 - 4.5 mg/dL 08/23/2023 10:45 PM CDT DT Blood (Blood, Venous) 08/23/2023 9:58 PM CDT 08/23/2023 10:30 PM CDT Paula Hernandez M.D. LAB BLOOD ADD-ON [facility] 200 [place], [place] [address] [place] [address] 200 [place] [address] * Heparin Anti-Xa Assay (08/23/2023 11:37 AM CDT) [facility] Heparin Anti-Xa, P 0.51 IU/mL [...] BLOOD NON ADD-ON Performing Organization Address [facility] Co de Phone Number [facility] [address] [place] [address], [facility] 200 [place] [address] * (ABNORMAL) CBC without Differential (08/23/2023 3:42 [...] BLOOD ADD-ON Performing Organization Address City/[facility] Co de Phone Number [facility] 200 [place], [place] [address] [place] [address] 200 [place] [address] * Triglycerides (08/23/2023 3:42 AM CDT) Triglycerides [...] LAB BLOOD ADD-ON Performing Organization Address [facility] Co de Phone Number [facility] 200 [place], [place] [address] [place] [address] 200 [place] [address] * Magnesium (08/23/2023 3:42 AM CDT) Pathologist [facility] Magnesium, S 2.2 1.7 - 2.3 mg/dL 08/23/2023 4:50 AM CDT DTL Blood (Blood, Venous) 08/23/2023 3:42 AM CDT 08/23/2023 4:19 AM CDT Boubacar Brock M.D. LAB BLOOD ADD-ON Performing Organization Address City/[facility]/ZIP Co de Phone Number [facility] [address] 200 [place] [address] * (ABNORMAL) Renal Function Panel (08/23/2023 3:42 AM CDT) Pathologist [facility] Potassium, S 3.1(L) 3.6 - 5.2 mmol/L [...] CDT Boubacar Brock M.D. LAB BLOOD ADD-ON [facility] [address] [place] [address], [facility] [address] [place] [address] * Heparin Anti-Xa Assay (08/23/2023 3:41 AM [...] LAB BLOOD NON ADD-ON Performing Organization Address City/[facility]/ZIP Co de Phone Number [facility] [address] [place] [address], [facility] DTL [facility][note 3] [address] [place] [address] * Glucose, POCT (08/22/2023 11:38 PM CDT) [facility] Glucose, POCT, B 117 70 - 140 mg/dL 08/23/2023 1:06 AM CDT PCLX Site Capillary 08/23/2023 1:06 AM CDT PCLX Last Intake NPO 08/23/2023 1:06 AM CDT PCLX Blood 08/22/2023 11:3 8 PM CDT 08/23/2023 1:06 AM CDT Unknown Provider LAB POCT ORDERABLES- MANUAL POC [facility] [address] [place] [address], [facility] PCLX [facility] POC [address] [place] [address] * Heparin Anti-Xa Assay (08/22/2023 10:14 PM CDT) [facility] Heparin Anti-Xa, P 0.50 IU/mL 2023 [...] Boubacar Brock M.D. LAB BLOOD NON ADD-ON [facility] [address] DTL [facility][note 3] [address] [place] [address] * CT Abdomen Pelvis without IV Contrast [...] colon likelyrepresenting mild proctocolitis. Paula Hernandez M.D. [facility] [place] PROCEDURES * Heparin [...] Brock M.D. LAB BLOOD NON ADD-ON [address] [place] [address] * Creatinine, Body Fluid (08/22/2023 3:30 PM [...] transport rates. All other fluids refer to www.[employer].com for further interpretive information. This test has been modified from the preschool paraprofessional's instructions. Its performance characteristics were determined by [facility] in a manner consistent with CLIA requirements. This test has not been cleared or approved by the U.S. Food and Drug Administration. Fluid Type, Creatinine Fluid, Abdomen 08/22/2023 3:52 PM CDT DTL Fluid (Abdomen) 08/22/2023 3 :30 PM CDT 08/22/2023 6:36 PM CDT Corin Ring M.D. LAB BODY FLUIDS AND STOOLS ORDERABLES [facility] [address] [place] [address], [place] DTL [facility][note 3] [address] [place] [address] * Transfuse Red Blood Cells : (08/22/2023 [...] of a right IJ vein single-lumen 4 Danish tunneled PowerPICC ready for immediate use. NR [...] advanced into the IVC and a 4 Danish dilator advanced over the wire and attached to a one-way stopcock. A suitable exit site in the right anterior chest was anesthetized and a small incision made. A 4 Danish single-lumen PowerPICC was then tunneled from the [...] Wireadvanced into the IVC and a 4 Danish dilator advanced over the wire andattached to a one-way stopcock. A suitable exit site in the right anteriorchest was anesthetized and a small incision made. A 4 Danish single-lumen PowerPICC was then tunneled fromthe skin [...] of a right IJ vein single-lumen 4 Danish tunneled PowerPICCready for immediate use. NR Kimi [...] BLOOD ADD-ON Performing Organization Address City/[facility] Co de Phone Number [facility] [address] [place] [address], [facility][note 3] [address] [place] [address] * Type and Screen (with Reflex Antibody ID) (08/22/2023 2:55 AM CDT) [facility] ABORh O Pos Not applicable 08/22/2023 3:25 AM CDT STRM Antibody Screen Negative Negative 08/22/2023 3:38 AM CDT STRM Type & Screen Expiration 08/25/2023 23:59 08/22/2023 3:25 AM CDT STRM Testing Location [place] DEFAULT 08/22/2023 3:07 AM CDT STRM Blood (Blood, Venous) 08/22/2023 2:55 AM CDT 08/22/2023 3:07 AM CDT Latisha Whitehead M.D. LAB BLOOD BANK T EST ORDERABLES Performing Organization Address [facility] Co de Phone Number [facility] [address] [place] [address], [facility] STRM [facility][note 3] [address] [place] [address] * (ABNORMAL) Comprehensive Metabolic Panel (08/22/2023 2:40 [...] CDT Latisha Whitehead M.D. LAB BLOOD ADD-ON [facility] [address] [place] [address], [facility] DTL [facility][note 3] [address] [place] [address] * Heparin Anti-Xa Assay (08/22/2023 2:40 AM CDT) Pathologist [facility] Heparin Anti-Xa, P 0.47 IU/mL 2023 3:28 [...] BLOOD NON AD D-ON Performing Organization Address City/[facility]/ZIP Co de Phone Number [facility] 200 [place] [address], [facility] 200 [place] [address] * (ABNORMAL) APTT (Activated Partial Thromboplastin Time) (08/22/2023 2:40 AM CDT) Pathologist [facility] Activated Partial Thrombopl Time, P 64(H) 25 - 37 sec 08/22/2023 3:12 AM CDT STMA Blood (Blood, Venous) 08/22/2023 2:40 AM CDT 08/22/2023 3:01 AM CDT Latisha Whitehead M.D. LAB BLOOD ADD-ON Performing Organization Address City/[facility]/ZIP Co de Phone Number [facility] 200 [place] [address], [facility] STMA [facility][note 3] 200 [place] [address] * Triglycerides (08/21/2023 7:32 AM CDT) Triglycerides [...] LAB BLOOD ADD-O N Performing Organization Address City/[facility]/ZIP Co de Phone Number [facility] [address] [facility] 200 [place] [address] * Phosphorus Inorganic (08/21/2023 7:32 AM CDT) Phosphorus (Inorganic), S 2.6 2.5 - 4.5 mg/dL 08/21/2023 9:03 AM CDT DT Blood (Blood, Venous) 08/21/2023 7:32 AM CDT 08/21/2023 8:38 AM CDT Lizette Harvey M.D. LAB BLOOD ADD-O N [facility] [address] [place] [address] * Magnesium (08/21/2023 7:32 AM CDT) Magnesium, S 2.3 1.7 - 2.3 mg/dL 08/21/2023 9:03 AM CDT DTL Blood (Blood, Venous) 08/21/2023 7:32 AM CDT 08/21/2023 8:38 AM CDT Lizette Harvey M.D. LAB BLOOD ADD-O N [facility] [address] [place] [address], [facility] DTL [facility][note 3] [address] [place] [address] * (ABNORMAL) Basic Metabolic Panel (08/21/2023 7:32 [...] Lizette Harvey M.D. LAB BLOOD ADD-O N [facility] [address] [place] [address], [facility] 200 [place] [address] * (ABNORMAL) CBC without Differential (08/21/2023 7:32 [...] Lizette Harvey M.D. LAB BLOOD ADD-O N [facility] [address] [place] [address], [facility] [address] [place] [address] * Heparin Anti-Xa Assay (08/21/2023 7:32 AM CDT) Pathologist [facility] Heparin Anti-Xa, P 0.49 IU/mL 2023 8:31 [...] LAB BLOOD NON ADD-ON Performing Organization Address City/[facility]/ZIP Co de Phone Number [facility] [address] [place], [place] [address] [place] [address] * (ABNORMAL) APTT (Activated Partial Thromboplastin Time) (08/21/2023 7:32 AM CDT) [facility] Activated Partial Thrombopl Time, P 49(H) 25 - 37 sec 08/21/2023 8:31 AM CDT DT Blood (Blood, Venous) 08/21/2023 7:32 AM CDT 08/21/2023 8:06 AM CDT Boubacar Brock M.D. LAB BLOOD ADD-ON [facility] [address] [place], [place] [address] [place] [address] 200 [place] [address] * Place peripherally inserted central catheter (PICC) [...] the atrophic right kidney. Lizette Harvey M.D. [facility] [place] [place] PROCEDUR ES * (ABNORMAL) Basic Metabolic Panel (08/20/2023 3:19 AM CDT) [facility] Potassium, S 3.7 3.6 - [...] LAB BLOOD ADD-ON Performing Organization Address [facility]/ZIP Co de Phone Number [facility] [address] [place] [address], [facility] DTL [facility][note 3] 200 [place] [address] * (ABNORMAL) CBC without Differential (08/20/2023 3:19 [...] CDT Paula Hernandez M.D. LAB BLOOD ADD-ON [facility] [address] [place] [address] * (ABNORMAL) APTT (Activated Partial Thromboplastin Time) (08/20/2023 3:19 AM CDT) Pathologist [facility] Activated Partial Thrombopl Time, P 52(H) 25 - 37 sec 08/20/2023 4:33 AM CDT DTL Blood (Blood, Venous) 08/20/2023 3:19 AM CDT 08/20/2023 4:10 AM CDT Boubacar Brock M.D. LAB BLOOD ADD-ON [facility] [address] [place] [address] * (ABNORMAL) APTT (Activated Partial Thromboplastin Time) (08/19/2023 10:57 AM CDT) [facility] Activated Partial Thrombopl Time, P 54(H) 25 - 37 sec 08/19/2023 11:44 AM CDT DT Blood (Blood, Venous) 08/19/2023 10:57 AM CDT 08/19/2023 11:26 AM CDT Boubacar Brock M.D. LAB BLOOD ADD-ON [facility] [address] [place] [address] * (ABNORMAL) APTT (Activated Partial Thromboplastin Time) (08/19/2023 4:51 AM CDT) [facility] Activated Partial Thrombopl Time, P 59(H) 25 - 37 sec 08/19/2023 5:53 AM CDT DTL Blood (Blood, Venous) 08/19/2023 4:51 AM CDT 08/19/2023 5:36 AM CDT Boubacar Brock M.D. LAB BLOOD ADD-ON [facility] [address] [place] [address] * (ABNORMAL) APTT (Activated Partial Thromboplastin Time) (08/18/2023 10:03 PM CDT) [facility] Activated Partial Thrombopl Time, P 63(H) 25 - 37 sec 08/18/2023 10:41 PM CDT DTL Blood (Blood, Venous) 08/18/2023 10:03 PM CDT 08/18/2023 10:19 PM CDT Boubacar Brock M.D. LAB BLOOD ADD-ON Performing Organization Address City/[facility]/ZIP Co de Phone Number [facility] [address] [place] [address] * (ABNORMAL) APTT (Activated Partial Thromboplastin Time) (08/18/2023 2:50 PM CDT) [facility] Activated Partial Thrombopl Time, P 64(H) 25 - 37 sec 08/18/2023 3:25 PM CDT DT Blood (Blood, Venous) 08/18/2023 2:50 PM CDT 08/18/2023 3:07 PM CDT Boubacar Brock M.D. LAB BLOOD ADD-ON [facility] [address] [place] [address] * (ABNORMAL) APTT (Activated Partial Thromboplastin Time) (08/18/2023 6:42 AM CDT) [facility] Activated Partial Thrombopl Time, P 61(H) 25 - 37 sec 08/18/2023 7:28 AM CDT DTL Blood (Blood, Venous) 08/18/2023 6:42 AM CDT 08/18/2023 7:04 AM CDT Boubacar Brock M.D. LAB BLOOD ADD-ON Performing Organization Address City/[facility]/ZIP Co de Phone Number [facility] [address] [place] [address], [facility] 200 [place] [address] * (ABNORMAL) APTT (Activated Partial Thromboplastin Time) (08/17/2023 11:04 PM CDT) Pathologist [facility] Activated Partial Thrombopl Time, P 40(H) 25 - 37 sec 08/17/2023 11:46 PM CDT DTL Blood (Blood, Venous) 08/17/2023 11:04 PM CDT 08/17/2023 11:31 PM CDT Boubacar Brock M.D. LAB BLOOD ADD-ON Performing Organization Address [facility] Co de Phone Number [facility] [address] [place] [address], [address] [address] * US Lower Extremity Veins Bilateral (08/17/2023 [...] and management can be found on the [employer] site. Link [email or web address] Findings discussed with ??Tayler Greenwood, ?? ([id number]) on 08/17/2023 7:11 PM. Procedure Note Jj [...] management can be found on theAskMayoExpert site. [email or web address] Findings discussed with Tayler Greenwood MD ([id number]) on 08/17/2023 7:11 PM. IMPRESSION: 1. 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 2. No acute left-sided DVT. Corin Ring M.D. IM US PROCEDURES * APTT (Activated Partial Thromboplastin Time) (08/17/2023 4:56 PM CDT) [facility] Activated Partial Thrombopl Time, P 29 25 - 37 sec 08/17/2023 5:10 PM CDT [facility] Blood (Blood, Venous) 08/17/2023 4:56 PM CDT 08/17/2023 5:00 PM CDT Paula Hernandez M.D. LAB BLOOD ADD-ON [facility] [address] [place] [address], [facility] [address] [place] [address] * ECG 12 Lead (08/16/2023 9:43 PM CDT) Pathologist [facility] Ventricular Rate ECG/Min 134 BPM MUSE [place] Interval 136 ms MUSE QRSD Interval 76 ms MUSE QT Interval 298 ms MUSE QTC Interval 445 ms MUSE P [place] 29 degrees MUSE R [place] -6 degrees MUSE T Wave [place] 21 degrees MUSE 08/16/2023 9:43 PM CDT [...] Differential (08/16/2023 9:40 PM CDT) Pathologist [facility] Hemoglobin 8.8(L) 13.2 - 16.6 g/dL 08/16/2023 [...] CDT Geneva Azar M.D. LAB BLOOD ADD-ON [facility] [address] [place] [address], [facility] DTL [facility][note 3] [address] [place] [address] * (ABNORMAL) Basic Metabolic Panel (08/16/2023 9:40 [...] CDT Geneva Azar M.D. LAB BLOOD ADD-ON [facility] [address] [place] [address], [place] DTL [facility][note 3] [address] [place] [address] * Transfuse Red Blood Cells : (08/16/2023 12:04 PM CDT) Corin Ring M.D. BLOOD TRANSFUSION OR DERABLES * Transfuse Red Blood Cells : , 1 Units (08/16/2023 12:04 PM CDT) Corin Ring M.D. BLOOD TRANSFUSION OR DERABLES * (ABNORMAL) Basic Metabolic Panel (08/16/2023 3:10 AM CDT) [facility] Potassium, S 4.2 3.6 - 5.2 mmol/L [...] CDT Paula Hernandez M.D. LAB BLOOD ADD-ON [facility] [address] [place] [address], [facility] [address] [place] [address] * (ABNORMAL) CBC without Differential (08/16/2023 3:10 [...] CDT Paula Hernandez M.D. LAB BLOOD ADD-ON [facility] [address] [place] [address], [facility] [address] [place] [address] * (ABNORMAL) CBC with Differential, Blood (08/15/2023 [...] Carlos Alberto Henson M.D. LAB BLOOD ADD-ON [facility] [address] [place] [address], [place] DTL [facility][note 3] [address] [place] [address] [facility] [address] [place] [address] * DX Abdomen 1 View (08/15/2023 1:19 [...] CDT 08/15/2023 12:03 PM CDT Rae Gonzalez CLINICAL EDITOR, POOLING OPERATOR, DNAP LAB BLOO D NON ADD-ON [facility] [address] [place] [address], [facility] [address] [place] [address] * Lactate, B - Intra-op (08/15/2023 11:56 AM CDT) Lactate, B 1.1 0.5 - 2.2 mmol/L 08/15/2023 12:06 PM CDT [facility] Blood (Blood, Venous) 08/15/2023 11:56 AM CDT 08/15/2023 12:03 PM CDT Hayde Song M.D. LAB BLOOD NON ADD-O N Performing Organization Address City/[facility]/ZIP Co de Phone Number [facility] [address] [place] [address], [facility] [address] [place] [address] * (ABNORMAL) Glucose, Whole Blood (08/15/2023 11:56 AM CDT) Glucose 144(H) 70 - 140 mg/dL 08/15/2023 12:06 PM CDT [facility] Blood (Blood, Arterial Line) 08/15/2023 11:56 AM CDT 08/15/2023 12:03 PM CDT Hayde Song M.D. LAB BLOOD ADD-ON Performing Organization Address [facility]/ZIP Co de Phone Number [facility] [address] [place] [address], [facility] [address] [place] [address] * Potassium, Blood (08/15/2023 11:56 AM CDT) Potassium, B 4.3 3.6 - 5.2 mmol/L 08/15/2023 12:07 PM CDT [facility] Blood (Blood, Arterial Line) 08/15/2023 11:56 AM CDT 08/15/2023 12:03 PM CDT Hayde Sogn M.D. LAB BLOOD NON ADD-O N [facility] [address] [place] [address], [facility] [address] [place] [address] * Sodium, B (08/15/2023 11:56 AM CDT) Sodium, B 135 135 - 145 mmol/L 08/15/2023 12:06 PM CDT [facility] Blood (Blood, Arterial Line) 08/15/2023 11:56 AM CDT 08/15/2023 12:03 PM CDT Hayde Song M.D. LAB BLOOD NON ADD-O N Performing Organization Address City/[facility]/ZIP Co de Phone Number [facility] [address] [place] [address] * (ABNORMAL) Calcium, Ionized (08/15/2023 11:56 AM CDT) Calcium, Ionized, B 4.53(L) 4.65 - 5.30 mg/dL 08/15/2023 12:07 PM CDT [facility] Blood (Blood, Arterial Line) 08/15/2023 11:56 AM CDT 08/15/2023 12:03 PM CDT Hayde Song M.D. LAB BLOOD NON ADD-O N Performing Organization Address City/[facility]/ZIP Co de Phone Number [facility] [address] [place], [place] [address] [place] [address] [address] [place] [address] * (ABNORMAL) Blood Gas with Coox, Arterial [...] BLOOD NON ADD-O N Performing Organization Address City/[facility]/ZIP Co de Phone Number [facility] [address] STMA [facility][note 3] [address] [place] [address] * [place] Fluoro Less Than 1 Hour [...] CDT 08/15/2023 10:28 AM CDT Rae Gonzalez CLINICAL EDITOR, POOLING OPERATOR, DNAP LAB BLOO D NON ADD-ON [facility] [address] [place] [address], [facility] [address] [place] [address] * Lactate, B - Intra-op (08/15/2023 10:28 AM CDT) Lactate, B 1.1 0.5 - 2.2 mmol/L 08/15/2023 10:30 AM CDT [facility] Blood (Blood, Venous) 08/15/2023 10:28 AM CDT 08/15/2023 10:28 AM CDT Hayde Song M.D. LAB BLOOD NON ADD-O N Performing Organization Address City/[facility]/ZIP Co de Phone Number [facility] [address] [place] [address], [facility] [address] [place] [address] * Glucose, Whole Blood (08/15/2023 10:28 AM CDT) Glucose 134 70 - 140 mg/dL 08/15/2023 10:30 AM CDT [facility] Blood (Blood, Arterial Line) 08/15/2023 10:28 AM CDT 08/15/2023 10:28 AM CDT Hayde Song M.D. LAB BLOOD ADD-ON [facility] [address] [place] [address], [facility] [address] [place] [address] * Potassium, Blood (08/15/2023 10:28 AM CDT) Potassium, B 4.1 3.6 - 5.2 mmol/L 08/15/2023 10:31 AM CDT [facility] Blood (Blood, Arterial Line) 08/15/2023 10:28 AM CDT 08/15/2023 10:28 AM CDT Hayde Song M.D. LAB BLOOD NON ADD-O N [facility] [address] [place], [place] [address] [place] [address] [address] [place] [address] * Sodium, B (08/15/2023 10:28 AM CDT) Sodium, B 135 135 - 145 mmol/L 08/15/2023 10:30 AM CDT [facility] Blood (Blood, Arterial Line) 08/15/2023 10:28 AM CDT 08/15/2023 10:28 AM CDT Hayde Song M.D. LAB BLOOD NON ADD-O N [facility] [address] [place], [place] [address] [address] [place] [address] * (ABNORMAL) Calcium, Ionized (08/15/2023 10:28 AM CDT) Calcium, Ionized, B 4.25(L) 4.65 - 5.30 mg/dL 08/15/2023 10:31 AM CDT [facility] Blood (Blood, Arterial Line) 08/15/2023 10:28 AM CDT 08/15/2023 10:28 AM CDT Hayde Song M.D. LAB BLOOD NON ADD-O N [facility] [address] [place], [place] [address] [address] [place] [address] * (ABNORMAL) Blood Gas with Coox, Arterial [...] Song M.D. LAB BLOOD NON ADD-O N [facility] [address] [place] [address], [facility] [address] [place] [address] * Bacteria / Yomaira Culture, Blood #2 (08/15/2023 3:33 AM CDT) Pathologist [facility] Bacteria/Leyla da Culture, Blood No growth after 5 days of incubation. 08/20/2023 6:02 AM CDT DTL Blood (Blood, Peripheral Draw) 08/15/2023 3:33 AM CDT 08/15/2023 5:58 AM CDT Comment:Specimen Source Site : Blood Narrative [facility] - 08/20/2023 6:02 AM CDT Received Bactec aerobic and Bactec anaerobic bottles Carlos Alberto Henson M.D. LAB [facility] ORDERABLES [facility] [address] [place] [address], [facility] DTL [facility][note 3] [address] [place] [address] * (ABNORMAL) Basic Metabolic Panel (08/15/2023 3:31 AM CDT) Pathologist [facility] Potassium, S 4.0 3.6 - 5.2 mmol/L [...] BLOOD ADD-ON Performing Organization Address City/[facility]/[place] [address] * Bacteria / Yomaira Culture, Blood #1 (08/15/2023 3:31 AM CDT) [facility] Bacteria/Leyla da Culture, Blood No growth after 5 days of incubation. 08/20/2023 6:02 AM CDT DTL Blood (Blood, Peripheral Draw) 08/15/2023 3:31 AM CDT 08/15/2023 5:59 AM CDT Comment:Specimen Source Site : Blood Carlos Alberto Henson M.D. LAB MICROBIOLOGY - G ENERAL ORDERABLES Performing Organization Address [facility] Co de Phone Number [facility] [address] [place] [address] * (ABNORMAL) CBC with Differential, Blood (08/15/2023 3:30 AM CDT) [facility] Hemoglobin 9.5(L) 13.2 - 16.6 [...] Carlos Alberto Henson M.D. LAB BLOOD ADD-ON [facility] [address] [place] [address], [facility] DTL [facility][note 3] [address] [place] [address] [facility] [address] [place] [address] * (ABNORMAL) CBC with Differential, Blood (08/14/2023 8:08 PM CDT) [facility] Hemoglobin 9.8(L) 13.2 - 16.6 [...] Carlos Alberto Henson M.D. LAB BLOOD ADD-ON [facility] [address] [place] [address], [facility] STMA [facility][note 3] [address] [place] [address] [facility] [address] [place] [address] * Transfuse Red Blood Cells : , [...] Carlos Alberto Henson M.D. LAB BLOOD ADD-ON [facility] [address] [place] [address], [facility] STMA [facility][note 3] [address] [place] [address] [facility] [address] [place] [address] * (ABNORMAL) Basic Metabolic Panel (08/14/2023 3:18 [...] Carlos Alberto Henson M.D. LAB BLOOD ADD-ON [facility] [address] [place] [address], [place] [facility] [address] [place] [address] * Type and Screen (with Reflex Antibody ID) (08/13/2023 7:35 PM CDT) [facility] ABORh O Pos Not applicable 08/13/2023 7:58 PM CDT STRM Antibody Screen Negative Negative 08/13/2023 8:13 PM CDT STRM Type & Screen Expiration 08/16/2023 23:59 08/13/2023 7:58 PM CDT STRM Testing Location Marcio DEFAULT 08/13/2023 7:39 PM CDT STR Blood (Blood, Venous) 08/13/2023 7:35 PM CDT 08/13/2023 7:39 PM CDT Carlos Alberto Henson M.D. LAB BLOOD BANK TEST ORDERABLES [facility] [address] [place] [address], [facility] [address] [place] [address] * (ABNORMAL) Bacteria / Yomaira Culture, Blood #1 (08/13/2023 7:35 PM CDT) [facility] Bacteria/Cand jessica Culture, Blood ESCHERICHIA COLI Growth after 11 Hours (A) 08/16/2023 11:17 AM CDT DT Comment: 3 of 3 Bottles, Susceptibilities performed on another specimen [id number] Blood (Blood, Peripheral Draw) 08/13/2023 7:35 PM CDT 08/13/2023 8:15 PM CDT Comment:Specimen Source Site : Blood Carlos Alberto Hneson M.D. LAB MICROBIOLOGY - G ENERAL ORDERABLES [facility] [address] [place] [address], [facility] [address] [place] [address] * ECG 12 Lead (08/13/2023 7:02 PM CDT) Ventricular Rate ECG/Min 128 BPM MUSE [place] Interval 138 ms MUSE QRSD Interval 64 ms MUSE QT Interval 304 ms MUSE QTC Interval 443 ms MUSE P [place] 45 degrees MUSE R [place] 34 degrees MUSE T Wave [place] 46 degrees MUSE 08/13/2023 7:02 PM CDT [...] CDT Comment:Specimen Source Site : Blood Narrative [facility] - 08/16/2023 11:17 AM CDT Received Bactec aerobic and Bactec anaerobic bottles Organism Antibiotic Method Susceptibility Escherichia coli Amikacin SUSCEPTIBILITY, LAYO (MCG/ML) <=4 mcg/mL: Susceptible Escherichia coli Aztreonam SUSCEPTIBILITY, LAYO (MCG/ML) 2 mcg/mL: Susceptible Escherichia coli Ceftazidime SUSCEPTIBILITY, LAYO (MCG/ML) 4 mcg/mL: Susceptible Escherichia coli Ciprofloxacin SUSCEPTIBILITY, LAYO (MCG/ML) <=0.25 mcg/mL: Susceptible Escherichia coli Ceftriaxone SUSCEPTIBILITY, LAOY (MCG/ML) 0.5 mcg/mL: Susceptible Escherichia coli Ertapenem [...] Alberto Henson M.D. LAB MICROBIOLOGY - G [facility] ORDERABLES [facility] [place] [address] [place] [address], [facility] [address] [place] [address] * Magnesium (08/13/2023 5:27 PM CDT) Magnesium, S 1.9 1.7 - 2.3 mg/dL 08/13/2023 6:12 PM CDT DT Blood (Blood, Venous) 08/13/2023 5:27 PM CDT 08/13/2023 5:58 PM CDT Carlos Alberto Henson M.D. LAB BLOOD ADD-ON Performing Organization Address [facility] Co de Phone Number [facility] [address] [place] [address], [facility] [address] [place] [address] * (ABNORMAL) Hepatic Function Panel (08/13/2023 5:27 [...] BLOOD ADD-ON Performing Organization Address City/[facility]/ZIP Co de Phone Number [facility] [address] [place] [address], [facility] [address] [place] [address] * (ABNORMAL) Basic Metabolic Panel (08/13/2023 5:27 [...] Carlos Alberto Henson M.D. LAB BLOOD ADD-ON [facility] [address] [place] [address], [facility] [address] [place] [address] * Prothrombin Time (PT) (08/13/2023 5:27 PM [...] Carlos Alberto Henson M.D. LAB BLOOD ADD-ON [facility] [address] [place] [address], [facility] STMA [facility][note 3] [address] [place] [address] * (ABNORMAL) CBC with Differential, Blood (08/13/2023 [...] Carlos Alberto Henson M.D. LAB BLOOD ADD-ON [facility] [address] [place] [address], [facility] STMA [facility][note 3] [address] [place] [address] DHPM [facility][note 3] [address] [place] [address] * (ABNORMAL) Dipstick, Urine (08/13/2023 5:07 PM [...] Carlos Alberto Henson M.D. LAB URINE ORDERABLES [facility] [address] [place] [address], [facility] DTL [facility][note 3] [address] [place] [address] * Osmolality, Urine (08/13/2023 5:07 PM CDT) Osmolality, U 351 150 - 1150 mOsm/kg 08/13/2023 7:46 PM CDT DTL Urine 08/13/2023 5:07 PM CDT 08/13/2023 5:45 PM CDT Carlos Alberto Henson M.D. LAB URINE ORDERABLES Performing Organization Address City/[facility] Co de Phone Number [facility] [address] [place] [address], [facility] [address] [place] [address] * (ABNORMAL) Microscopic Manual (08/13/2023 5:07 PM [...] ORDERABLES Performing Organization Address [facility] Co de Phone Number [facility] [address] [place] [address], [facility] [address] [place] [address] * pH, Random, Urine (08/13/2023 5:07 PM CDT) pH, Random, U 7.0 4.5 - 8.0 08/13/2023 7:46 PM CDT DTL Urine 08/13/2023 5:07 PM CDT 08/13/2023 5:45 PM CDT Carlos Alberto Henson M.D. LAB URINE ORDERABLES [facility] [address] [place] [address], [place] [facility] [address] [place] [address] * (ABNORMAL) Bacterial Culture, Aerobic + Susceptibility, [...] Carlos Alberto Henson M.D. LAB MICROBIOLOGY - [facility] ORDERABLES [facility] [address] [place] [address], [facility] [place] [address] [place] [address] * (ABNORMAL) Urinalysis, with Microscopic: Urine, Midstream [...] CDT DTL Predicted 24 [place] [address](H) <229 mg/24 h 08/13/2023 8:50 PM CDT DTL Predicted Range [id number] mg/24 h 08/13/2023 8:50 PM CDT DTL Comment Micro done on <2.5 mL 08/13/2023 7:55 PM CDT DTL Urine (Urine, Midstream) 08/13/2023 5:07 PM CDT 08/13/2023 5:44 PM CDT Carlos Alberto Henson M.D. LAB URINE ORDERABLES [facility] [address] [place] [address], [facility] DTL [facility] [address] [place] [address] * Interpretation of Outside CT Abdomen and [...] may use home supply. 08/17/23: Id'ed by [facility] Rx# [id number], filled 07/22/23. HAZARDOUS - Handle with care. Swallow whole. Do NOT crush, chew or open capsule. Given 08/26/2023 9:12 AM CDT 120 mg Given 08/25/2023 9:08 AM CDT 120 mg Given 08/24/2023 9:12 AM CDT 120 mg Lactated Ringer's 1.5 mL/kg/hr ? 75 kg [place] weight (112.5 mL/hr, rounded to 113 mL/hr), intravenous, Continuous, Starting on Tue08/22/23 at 1030, Conditional Phase Pre-Gastrografin Administration. (Rate = 1.5 mL/kg/hr ideal body weight) Lactated Ringer's 0.75 mL/kg/hr ? 75 kg [place] weight (56.25 mL/hr, rounded to 56.3 mL/hr), [...] RJonahNJonah)1750 (Not Given - Provider: Antonia Salazar RNarendra - Reason: Patient/family refused)2349 (Not Given - [...] supply. 08/17/23: Id'ed by [facility] Rx# [id number], filled 07/22/23. HAZARDOUS - Handle with care. Swallow whole. Do NOT crush, chew or open capsule. 0912 (Given - Provider: Tayler Forrest R.N. - Comment: Pat Murray, -2nd RN) 0908 (Given - Provider: Tayler Forrest R.N. - Comment: Pt 's own med from home) 0912 (Given - Provider: Lupe Valdez R.N.) fat emulsion [id number] & fish oil infusion 50 g (SMOFlipid) [...] refused) 0852 (Not Given - Provider: Tayler Frorest R.N. - Reason: Patient/family refused) 0911 (Not [...] Tayler Forrest R.N. - Comment: verified by Antoina Salazar, JAMEL)2126 (Stopped - Provider: Antonia Salazar [...] Lactated Ringer's 1.5 mL/kg/hr ? 75 kg [place] weight (112.5 mL/hr, rounded to 113 mL/hr), intravenous, Continuous, Starting on Tue08/22/23 at 1030, Conditional Phase Pre-Gastrografin Administration. (Rate = 1.5 mL/kg/hr ideal body weight) Lactated Ringer's 0.75 mL/kg/hr ? 75 kg [place] weight (56.25 mL/hr, rounded to 56.3 mL/hr), [...] 1547 documented in this encounter Care Teams Funeral Director And Embalmer Relationship Specialty Start Date End Date Elsewhere, Pcp PCP - General Internal Medicine 08/13/23 documented as of this encounter
--- OUTSIDE RECORDS SUMMARY | 2023-10-07 12:49 | XMS_ITS | Data Portability ---
Author Organization [facility] [place] [facility], [facility] Address [address] [place] [address] Care Team Providers Care Aircraft Instrument Engineer Name Role Phone MASOUD SAUER Primary Care Provider [phone] Assessment No assessment recorded. Plan of Treatment Reminders Order Date Submit Date Provider Last Modified By Organization Details Last Modified Time Details Appointments None recorded . Lab urinalys is, dipstick 2023 024 [email or web address] [facility], [address] [place], [address], 4 15:08:54 culture, urine [address] [facility], [address], [place], [address], 4 10:11:11 Referral None recorded . Procedures None recorded . Surgeries cystosco py with ureteral stent exchange (SURG) 2021 022 Not available 16:50:47 cystosco py with ureteral stent exchange (SURG) 2021 022 [email or web address] Not available 15:46:30 Imaging None recorded . Medication Orders Myrbetri q 50 mg tablet,e xtended release 2021 022 [id number], [address] [place], [place], [phone], 2 17:50:02 Bactrim DS 800 mg-160 mg tablet 2023 024 [email or web address] [facility] #[id number], [address] [facility], [place], [place], [phone], 16:19:28 Patient TargetsNo targets recorded. Patient InstructionsNo instructions recorded. Reason for Referral None Reported. Results Created Date Observation Date Name Description Value Unit Range Abnormal Flag LastModifiedBy Organization Detail LastModifiedTime 06/23/1906/23/2023 URINE CULTU RE final report MICROB IOLOGY RESULT S Not Available [facility] [address], [place], [address], 06/25/2023 10:11:11 06/23/19 24 06/23/2023 urina lysis , dipst ick Color-Status Red Not Available [facility] [address], [place], [address], 06/23/2023 15:08:10 06/23/19 24 06/23/2023 urina lysis , dipst ick pH-Status 7.5 Not Available [facility] [address], [place], [address], 06/23/2023 15:08:10 06/23/19 24 06/23/2023 urina lysis , dipst ick Protein-Stat us >=9.0 Not Available [facility] [address], [place], [address], 06/23/2023 15:08:10 06/23/19 24 06/23/2023 urina lysis , dipst ick Nitrates-Sta tus negati ve Not Available [facility] [address], [place], [address], 06/23/2023 15:08:10 06/23/19 24 06/23/2023 urina lysis , dipst ick Blood-Status Large Not Available [facility] [address], [place], [address], 06/23/2023 15:08:10 06/23/19 24 06/23/2023 urina lysis , dipst ick Leuko-Status Negati ve Not Available [facility] [address], [place], [address], 06/23/2023 15:08:10 06/23/19 24 06/23/2023 urina lysis , dipst ick Specimen Type Voided Not Available [facility] [address], [place], [address], 06/23/2023 15:08:10 07/04/19 24 07/01/2023 CT, abdom en + pelvi s, w/o contr ast No observ ation [email or web address] [address], [place], [address], 09/01/2023 14:40:29 07/18/19 24 07/18/2023 XR, kidne y + urete r + bladd er No observ ation record ed. [email or web address] [facility] [address], [place], [address], 07/22/2023 15:56:19 Result Notes None recorded. Procedures Surgical History Date Name Laterality Status Provider Name and Address Organization Details Recorded Time Bladder Scan completed Rabia matthews, [facility] 06/23/2023 15:08:00 Cystoscopy completed Nicola Ware MD [address] [place] [address],[address], [place], [address], [facility] 12/30/2021 17:11:17 Colonoscopy completed Nicola Ware MD [address] [place] [address],[address], [place], [address], [facility] 12/30/2021 17:11:22 Imaging Results Imaging Date Name Status LastModified by [facility] Details LastModified Time 07/01/2023 CT, abdomen + pelvis, w/o contrast completed [email or web address] [address], [place], [address], 09/01/2023 14:40:29 07/18/2023 XR, kidney + ureter + bladder completed [email or web address] [address], [place], [address], 07/22/2023 15:56:19 Procedure Notes None recorded. Medical [...] COLONOSCO PY PREP INSTRUCTI ONS RECEIVED FROM [facility] active Not Available Not Available No t Available furosemide 20 mg tablet TAKE 1 TABLET BY MOUTH DAILY active Not Available Not Available No t Available cefuroxime axetil 500 mg tablet active Not Available Not Available No t Available polyethylen e glycol 3350 17 gram/dose oral powder MIX AND DRINK DIRECTED IN COLONOSCO PY PREP INSTRUCTI ONS RECEIVED FROM [facility] active Not Available Not Available No [...] Updated DateTime 12/30/2021 177.8 cm 27.4 kg/m2 56864.14 g Nicola Ware MD [address] [place] [address], [address] 12/30/2021 17:10:12 Date Recorded Body height Body mass index (BMI) Body weight Provider Name and Address Organization Details Last Updated DateTime 03/12/2022 177.8 cm 27.4 kg/m2 77763.14 g Rabia Ferrell [facility] 03/12/2022 13:55:47 Social History Question Answer Notes LastModified by Organizat ion Details LastModified Time Tobacco Smoking Status Never Smoker Nicola Ware MD [address] [place] [address], [address], [facility] 12/30/2021 17:11:00 What Is Your Level Of Alcohol Consumption? Occasional [email or web address] Information not available 12/30/2021 What Was The Date Of Your Most Recent Tobacco Screening? 03/12/2022 [email or web address] Information not available 03/12/2022 Sex: Unknown Functional Status None recorded. Mental Status None recorded. Family History Nothing Reported. Medical History Condition Response Other Y High Blood Pressure Y Cancer Y Past Encounters Encounter ID Performer Location Encounter Start Date Encounter Closed Date Diagnosis/Indication Diagnosis SNOMED-CT Code [id number] Nicola Ware MD [facility] [address] [place] [address] 12/30/2021 16:01:19 01/01/2022 09:36:50 Increased frequency of urination [id number] Malignant tumor of prostate 677757671 Hydronephrosis 46097707 [id number] Aliza Landeros [facility] [address] [place] [id number] 03/12/2022 13:13:50 03/15/2022 14:00:47 Increased frequency of urination 154515253 Malignant tumor of prostate 954963578 Hydronephrosis 72654456 [id number] Nicola Ware MD [facility] [address] [place] [id number] 06/23/2023 14:16:52 06/24/2023 08:40:38 Blood in urine [id number] Health Concerns Section Related Observation LastModified by Organization Detai ls LastModified Time None Recorded Concern Status LastModified by Organization Details LastModified Time None Recorded Advance Directives Directive None Recorded Payers Encounter Date Sequence Insurance Name Policy Number Policy Krishnan Covered Member ID Krishnan Member ID Guarantor Name 12/30/2021 1 [employer] (MEDICARE REPLACEMENT/ ADVANTAGE - PPO) [id number] José Miguel D Braucher [id number] José Miguel D Braucher 03/12/2022 1 [employer] (MEDICARE REPLACEMENT/ ADVANTAGE - PPO) [id number] José Miguel D Braucher [id number] José Miguel D Braucher 06/23/2023 1 [employer] (MEDICARE REPLACEMENT/ ADVANTAGE - PPO) [id number] José Miguel D Braucher [id number] José Miguel D Braucher Notes Date Note Type Note Provider Name and Address Organization Details Recorded Time 12/30/2021 text/html HPI Notes: Excer pt from hospital consultation... 81 y.o. year old male who was admitted to [facility] for gross hematuria & CT [...] some of the history. Nicola Ware MD [address] [place] [address],[address], [place], [address], [facility] 12/30/2021 23:07:10 03/12/2022 text/html HPI Notes: Excer pt from hospital consultation... 81 y.o. year old male who was admitted to [facility] for gross hematuria & CT [...] some of the history. Nicola Ware MD [address] [place] [address],[address], [place], [address], [facility] 03/12/2022 17:21:47 06/23/2023 text/html HPI Notes: 83 Y male here after calling triage this AM with hematuria/pain with urination. Patient has stent in place, last exchange 02/08/2022. 06/23/23 visit completed by Curry Ware MD [address] [place] [address],[address], [place], [address], [facility] 06/23/2023 16:19:33
--- OUTSIDE RECORDS SUMMARY | 2023-10-07 12:49 | XMS_ITS | Encounter Summary ---
Author Organization [facility] Address [address] [place] [address] Care Team Providers Care Certified Pediatric Nurse Practitioner Name Role Phone Elsewhere, Pcp Primary Care Provider Unavailabl e Encounter Details Date Type Department Care Team (Latest Contact Info) Description 08/13/2023 Intake [facility] Social History Tobacco Use Types Packs/Day Years Used Date Smoking Tobacco: Never Smokeless Tobacco: Never [facility] Utilities Answer Date Recorded In the [...] [facility] 08/13/2023 Sex and Gender Information Value Date Recorded Sex Assigned at Not on file Gender Identity Not on file Sexual Orientation Not on file documented as of this encounter Plan of Treatment Upcoming Encounters Date Type Department Care Team (Late st Contact Info) Description 10/14/2023 1:00 PM CDT Procedure visit Department of Urology in [place], [place] [address] [place] [address] Paula Hernandez M.D. 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
== END 2023-10-07 12:43 | disposition home or self-care (01) ==
LOC: WOUND 12:42
PROVIDERS: PCP Family Medicine; Visit Provider Nurse Practitioner Family
DX: N30.41 Irradiation cystitis with hematuria (principal); K62.7 Radiation proctitis; C61 Malignant neoplasm of prostate; L89.153 Pressure ulcer of sacral region, stage 3; N13.30 Unspecified hydronephrosis; Y84.2 Radiological procedure and radiotherapy as the cause of abnormal reaction of the patient, or of later complication, without mention of misadventure at the time of the procedure; Z79.01 Long term (current) use of anticoagulants
CPT/HCPCS: 11042; G0277

== ENCOUNTER 2023-10-12 12:30 | Outpatient (RCR) | payer MEDICARE, OTHER, SELFPAY ==
[2023-06-27 11:28] LABS: Albumin* 4.1 g/dL (3.3-5.0); Chloride* 106 mmol/L (96-114); Potassium* 4.7 mmol/L (3.6-5.1); Sodium* 138 mmol/L (135-149)
[2023-06-27 11:30] LABS: Creatinine* 1.7 mg/dL (0.5-1.5); Estimated Glomerular Filt Rate 39 ml/min
[2023-06-27 11:31] LABS: Alanine Aminotransferase* 12 U/L (4-50); Alkaline Phosphatase* 52 U/L (40-150); Anion Gap 7 mEq/L (7-15); Aspartate Amino Transferase* 28 U/L (12-35); Bilirubin Total* 0.4 mg/dL (0.1-1.5); Blood Urea Nitrogen* 27 mg/dL (7-30); Carbon Dioxide* 25 mmol/L (20-32); Glucose* 95 mg/dL (60-115); Total Protein* 6.7 g/dL (6.0-8.3)
[2023-06-27 11:32] LABS: Calcium* 10.5 mg/dL (8.4-10.6)
[2023-06-28] MEDS: LEUPROLIDE ACETATE 22.5 MG (SQ) SYRINGE SUBCUT (15:08)
[2023-06-28] MEDS: DENOSUMAB 120 MG inj SUBCUT (15:10)
[2023-06-28 15:39] LABS: PSA Diagnostic* < 0.06 ng/mL (0.10-4.00)
--- NOTE | 2023-07-06 14:32 | PC.NURSE ---
Pt called today to report that he had labs done at [facility] and that his Hgb was 8.0. Pt inquired about getting a blood transfusion. No current orders per [facility] providers in chart. RN faxed a blood transfusion order to Dr. Mccollum and requested he complete it and fax back should he want Kalen to have a transfusion. Pt requested an update when MD responds.
[2023-07-12] VITALS (11 sets, daily range): BP systolic 121–155; BP diastolic 73–87; PULSE 55–65; RESP 16; TEMP 35.6–36.7; O2SAT 96–100
[2023-07-12] MEDS: FUROSEMIDE 10 MG/ML inj 20 MG IV (14:18)
[2023-09-23 09:31] VITALS: BP 118/74; PULSE 82; RESP 16; TEMP 36.5; O2SAT 96
[2023-09-23 09:47] VITALS: BP 118/74; PULSE 82; RESP 16; TEMP 36.7; O2SAT 97
[2023-09-23 10:05] VITALS: BP 127/77; PULSE 70; RESP 16; TEMP 36.9; O2SAT 97
[2023-09-23 10:50] VITALS: BP 133/69; PULSE 68; RESP 16; TEMP 36.7; O2SAT 98
[2023-09-23 11:30] VITALS: BP 127/74; PULSE 68; RESP 16; TEMP 36.9; O2SAT 98
[2023-09-23 12:30] VITALS: BP 111/65; PULSE 72; RESP 18; TEMP 36.5; O2SAT 98
[2023-09-26 11:42] VITALS: BP 110/67; PULSE 73; RESP 16; TEMP 36.3; O2SAT 98
[2023-09-26 12:01] VITALS: BP 119/62; PULSE 73; RESP 18; TEMP 36.2; O2SAT 98
[2023-09-26 12:02] VITALS: BP 124/71; PULSE 67; RESP 18; TEMP 36.5; O2SAT 98
[2023-09-26 13:40] VITALS: BP 142/82; PULSE 67; RESP 16; TEMP 36.2; O2SAT 97
[2023-09-26 13:47] LABS: Basophils Absolute Auto 0.01 K/uL (0.00-0.30); Basophils Percent Auto 0.1 % (0.0-3.0); Eosinophils Absolute Auto 0.15 K/uL (0.00-0.50); Eosinophils Percent Auto 1.6 % (0.0-7.0); Hematocrit 30.4 % (37.0-53.0); Hemoglobin* 9.6 gm/dL (13.5-17.5); Immature Granulocytes Abs Auto 0.03 K/uL (0.00-0.30); Immature Granulocytes Pct Auto 0.3 %; Lymphocytes Percent Auto 8.5 % (20-44); Mean Corpuscular HGB Conc 32 gm/dL (32-36); Mean Corpuscular Hemoglobin 29 pg (26-34); Mean Corpuscular Volume 91 fL (80-100); Monocytes Percent Auto 7.9 % (0.0-11.0); Neutrophils Percent Auto 81.6 % (42.0-72.0); Platelet Count* 401 K/uL (140-440); RDW Coefficient of Variation % 18.5 % (11.5-15.5); Red Blood Count 3.35 m/uL (4.30-5.90); White Blood Count* 9.28 K/uL (4.50-11.00)
[2023-09-26 14:05] LABS: Slide Review Reflex No
[2023-09-26 14:11] LABS: Albumin* 3.4 g/dL (3.3-5.0); Chloride* 104 mmol/L (96-114)
[2023-09-26 14:12] LABS: Potassium* 4.4 mmol/L (3.6-5.1); Sodium* 134 mmol/L (135-149)
[2023-09-26 14:14] LABS: Alanine Aminotransferase* 13 U/L (4-50); Alkaline Phosphatase* 83 U/L (40-150); Anion Gap 7 mEq/L (7-15); Aspartate Amino Transferase* 16 U/L (12-35); Bilirubin Total* 0.8 mg/dL (0.1-1.5); Blood Urea Nitrogen* 16 mg/dL (7-30); Carbon Dioxide* 23 mmol/L (20-32); Creatinine* 1.1 mg/dL (0.5-1.5); Estimated Glomerular Filt Rate 66 ml/min; Glucose* 98 mg/dL (60-115); Total Protein* 6.5 g/dL (6.0-8.3)
[2023-09-26 14:15] LABS: Calcium* 8.6 mg/dL (8.4-10.6)
[2023-09-26 14:46] LABS: PSA Diagnostic* < 0.06 ng/mL (0.10-4.00)
[2023-09-26] MEDS: LEUPROLIDE ACETATE 22.5 MG (SQ) SYRINGE SUBCUT (15:16)
[2023-09-26] MEDS: DENOSUMAB 120 MG inj SUBCUT (15:17)
--- NOTE | 2023-10-17 11:11 | ONC.NURNOTE ---
Late entry-10/12/23. Pt called wanting to have hgb drawn due to significant fatigue. Order received from Dr. Tan to draw Hgb. Hgb came back 9.0, no transfusion needed. Dr. Tan aware of results.
--- NOTE | 2023-10-19 15:18 | ONC.NURNOTE ---
Patient called and said that ARUN left a message for him. He wants to let us know that he has an appointment with Dr. Mccollum tomorrow at 1415.
== END 2023-12-25 23:59 | disposition home or self-care (01) ==
LOC: CCIC 12:30
PROVIDERS: Absent Provider Clinical Nurse Specialist; PCP Family Medicine; Referring Provider Family Medicine; Visit Provider Internal Medicine Hematology & Oncology
DX: C61 Malignant neoplasm of prostate (principal); C79.51 Secondary malignant neoplasm of bone
CPT/HCPCS: 36415; 36430; 80053; 84153; 85018; 85025; 86850; 86900; 86901; 86922; 96372; 96401; 97597; 99214; 99215; G0463; J0897; J1940; J9217; P9016

== ENCOUNTER 2023-10-14 09:14 | Outpatient (CLI) | payer MEDICARE, OTHER, SELFPAY ==
--- OUTSIDE RECORDS SUMMARY | 2023-10-14 09:16 | XMS_ITS | Clinical Summary ---
Author Organization [facility] Address [address] [place] [address] Care Team Providers Care Blacksmith Supervisor Name Role Phone Cesar Mccollum Primary Care Provider [phone] Allergies No known active allergies Medications Medication [...] 1999 FALL RISK ASSESSMENT 2004 COVID-19 Vaccine (2022- season) 2022 09/13/2022, 01/28/2022, 08/26/2021, Additional history exists MEDICARE ANNUAL WELLNESS VISIT 01/28/2023 01/28/2022, 11/20/2020 PHQ-2 (once per calendar year) 2023 INFLUENZA VACCINE (#1) 2023 01/28/2022 DTAP/TDAP/TD IMMUNIZATION (3 - Td [...] this topic Medical Devices Implanted Type Area Guardian Ad Litem Device Identifier Shelf Expiration Date Model / Serial / Lot Stent Ureteral Polaris Ultra [id number] - [id number] Implanted:Qty : 1 on 02/08/2022 by Nicola Ware MD at [facility] Stent Right: U[employer]ter [employer] [id number] 10/08/2024 [id number] Explanted Type Area Guardian Ad Litem Device Identifier Shelf Expiration Date Model / Serial / Lot Stent Came Out Of The Right Ureter Explanted:Qty: 1 on 02/08/2022 by Nicola Ware MD at [facility] Right: Urethra Advance Directives For more information, please contact: [phone] Documents on File Type Date Recorded Patient Automation Tech Expl anation Advance Directives and Living Will 02/17/2022 Health Care Directiv e 05/15/2021 Healthcare Agents on File Name Relationship Healthcare Agent Relationship Communication Mindy Waterman Daughter Co-First Alterna te Health Care Agent Meera Vega Spouse Health Care Agent [id number] (Home) Favio Vega Son Co-First Evangelina brock Health Care Agent Tereso Vega Son Co-First Fidencio dalton Health Care Agent Care Teams Blacksmith Supervisor Relationship Specialty Start Date End Date Cesar Mccollum [address] [place] [address] PCP - General Family Medicine 11/22/22
--- OUTSIDE RECORDS SUMMARY | 2023-10-14 09:16 | XMS_ITS | Referral Summary ---
Author Organization [facility] Address [address] [place] [address] Care Team Providers Care Remote Control Mirror Installer Name Role Phone Cesar Mccollum Primary Care Provider [phone] Allergies No known active allergies Medications Medication [...] on file Medical Devices Implanted Type Area Department Store Door Greeter Device Identifier Shelf Expiration Date Model / Serial / Lot Stent Ureteral Polaris Ultra [id number] - [id number] Implanted:Qty : 1 on 02/08/2022 by Nicola Ware MD at [facility] Stent Right: Ureter [employer] [id number] 10/08/2024 [id number] Explanted Type Area Department Store Door Greeter Device Identifier Shelf Expiration Date Model / Serial / Lot Stent Came Out Of The Right Ureter Explanted:Qty: 1 on 02/08/2022 by Nicola Ware MD at [facility] Right: Urethra Advance Directives For more information, please contact: [phone] Documents on File Type Date Recorded Patient Mining Consultant Expl anation Advance Directives and Living Will 02/17/2022 Health Care Directiv e 05/15/2021 Healthcare Agents on File Name Relationship Healthcare Agent Relationship Communication Mindy Waterman Daughter [employer]-First Alterna te Health Care Agent Meera Vega Spouse Health Care Agent [phone] (Home) Favio Vega Son Co-First Altern ate Health Care Agent Tereso Vega Son Co-First Alterna te Health Care Agent Care Teams Remote Control Mirror Installer Relationship Specialty Start Date End Date Cesar Mccollum [address] [place] [address] PCP - General Family Medicine 11/22/22
--- OUTSIDE RECORDS SUMMARY | 2023-10-14 09:17 | XMS_ITS | Clinical Summary ---
Author Organization [facility] Address [address] [place] [address] Care Team Providers Care Chemical Blender Name Role Phone Elsewhere, Pcp Primary Care Provider Unavailabl e Source Comments Patient records contain information from all sites at [facility]. For routine questions regarding patient records, call [phone] during business hours, M-F 8:00 AM - 5:00 PM Central Time. Record requests for emergency care only can be directed to [phone] at any time.[facility] Allergies No known active allergies Medications [...] time each day. Swallow it whole. Active iron,carbonyl-vit miller C (VITRON-C) 65 mg iron- 125 mg [...] to catheter removal 20 tablet 08/26/2023 Active sulfamethoxazole- trimethoprim (BACTRIM DS) 800-160 mg per tablet Take 1 tablet by mouth every 12 (twelve) hours for 2 days. 4 tablet 09/15/2023 09/17/2023 Active Problems Problem Noted Date Diagnosed Date Hematuria Gross 08/31/2023 Hematuria 08/13/2023 Lymphedema 03/21/2020 Primary Malignant Neoplasm Of Prostate 0 Cancer Staging:Clinical stage from 03/03/2020:Stage IVB(cT4, cN1, pM1b, PSA: 161.9) - Signed by Tereso Frazier M.D. on 03/21/2020 Encounters Date Type Department Care Team Description 09/27/2023 Clinical Communication Department of Urology in [place], [place] [address] [place] [address] Paula Hernandez M.D. 09/21/2023 Clinical Communication Department of Urology in [place], [place] [address] [place] [address] Paula Hernandez M.D. 09/16/2023 Clinical Communication Department of Urology in [place], [place] [address] [place] [phone] Provider, Unknown follow up questions 09/16/2023 Orders Only Department of Urology in [place], [place] [address] [place] [phone] Paula Hernandez M.D. Hematuria Gross (Primary Dx) 09/15/2023 Clinical Communication [facility] [address] [place] [phone] Yasmine Loco 09/09/2023 12:10 PM CDT Ancillary Procedure Department of Nursing 09/09/2023 7:24 AM CDT - 09/15/2023 5:28 PM CDT Hospital Encounter [facility], [facility], Sixth Floor [address] [place] [phone] Gerri Merrill M.D., Ph.D. Sumit Holbrook M.D. Hematuria (Primary Dx) Discharge Disposition: Home or Self Care 09/09/2023 Documentation Department of Urology in [place], [place] [address] [place] [phone] Ko Victoria M.D. 09/06/2023 Orders Only Section of Hyperbaric Medicine in [place], [place] [address] [place] [phone] Kira Ferraro APRN, C.N.P., M.S.N. 09/06/2023 Clinical Communication [facility] [address] [place] [phone] Yasmine Loco 09/01/2023 10:05 AM CDT Ancillary Procedure Department of Nursing 08/31/2023 12:36 PM CDT - 08/31/2023 2:31 PM CDT Surgery [facility] [address] [place] [phone] Mayur Alvarez M.D. CYSTOSCOPY EVACUATION CLOTS 08/31/2023 12:34 PM CDT Anesthesia Event [facility] [address] [place] [phone] Joe Stoll M.D. Benjamin Williamson APRN, CRNA 08/31/2023 12:25 PM CDT Ancillary Procedure Department of General Surgery 08/30/2023 7:35 PM CDT - 09/05/2023 4:09 PM CDT Hospital Encounter [facility], [facility], First Floor [address] [place] [phone] Kirstin Hughes M.D. Thompson, R. Houston, M.D. Hematuria (Primary Dx); Tachycardia; Hematuria Gross Discharge Disposition: [place] [facility] [place]/30/2023 Documentation Department of Urology in [place], [place] [address] [place] [phone] Corin Ring M.D. 08/30/2023 Intake [facility] 08/26/2023 Orders Only Department of Urology in [place], [place] [address] [place] [phone] Paula Hernandez M.D. 08/23/2023 12:45 AM CDT Ancillary Procedure Department of Nursing 08/15/2023 8:30 AM CDT Anesthesia Event [facility] [address] [place] [phone] Hayde Song M.D. 08/15/2023 7:55 AM CDT - 08/15/2023 11:23 AM CDT Surgery [facility] [address] [place] [phone] Boubacar Brock M.D. Palliative EXPLORATORY LAPAROTOMY, CYSTOTOMY CLOSURE, RIGHT URETERAL STENT EXCHANGE 08/13/2023 4:35 PM CDT Ancillary Procedure Department of Radiology in [place], [place] [address] [place] [phone] Carlos Alberto Henson M.D. 08/13/2023 3:42 PM CDT - 08/26/2023 4:11 PM CDT Hospital Encounter [facility], Sixth Floor [address] [place] [phone] Darnell Garcia M.D. Boubacar Brock M.D. Decline Functional Status [R53.81] (Primary Dx); Hematuria [R31.9] Discharge Disposition: Home or Self Care 08/13/2023 Intake [facility] from Last 3 Months Social History Tobacco Use Types Packs/Day Years Used Date Smoking Tobacco: Never Smokeless Tobacco: Never Tobacco Cessation:Counseling Given: Not Answered [facility] Utilities Answer Date Recorded In the past 12 months has e [employer], gas, oil, or water company threatened to [...] [facility] 09/09/2023 Sex and [...] CDT Procedure visit Department of Urology in [place], [place] [address] [place] [phone] Paula Hernandez M.D. [address] [place] [phone] Health Maintenance Due Date Last Done Comments Zoster Vaccines (1 of 2) 1989 Depression Screening (Annual PHQ-2) 04/11/2023 Fall Risk Screen (Annual) 04/11/2023 Influenza Vaccine (#1) 2024 03/08/2023, 2021 DTaP,Tdap,and Td Vaccines (2 - Td or Tdap) 09/07/2026 09/07/2016 COVID-19 Vaccine Completed 07/21/2023, , 09/13/2022, Additional history exists Pneumococcal vaccine (65+ years) Completed 07/21/19 24 Medical Devices Implanted Type Area Outpatient Interviewing Clerk Device Identifier Shelf Expiration Date Model / Serial / Lot Clp Hrzn Ti 6 Clp Lg Orng - [id number] Implanted:Qt y: 1 on 08/15/2023 by Boubacar Brock M.D. at [facility] Hardware e.g. pins/screws /rods [employer]dom[employer] [id number] 02/29/2028 [id number] / / [id number] Clp Hrzn Ti 6 Clp Lg Orng - [id number] Implanted:Qt y: 1 on 08/15/2023 by Boubacar Brock M.D. at [facility] Hardware e.g. pins/screws /rods [employer]dom[employer] [id number] 02/29/2028 [id number] / / [id number] Clp Hrzn Ti 6 Clp Md Monty - [id number] Implanted:Qt y: 1 on 08/15/2023 by Boubacar Brock M.D. at [facility] Hardware e.g. pins/screws /rods [employer]dom[employer] [id number] 03/13/2028 [id number] / / [id number] Clp Hrzn Ti 6 Clp Md Monty - [id number] Implanted:Qt y: 1 on 08/15/2023 by Boubacar Brock M.D. at [facility] Hardware e.g. pins/screws /rods [employer]dom[employer] [id number] 03/21/2028 [id number] / / [id number] 3 Stnt Uret Inl 6fx24 - [id number] Implanted:Qt y: 1 on 08/15/2023 by Jakob De Paz M.D. at [facility] Ureteral Stent N/A: Ureter [employer].Bard [id number] 11/18/2027 [id number] / / [id number] Procedures Procedure Name Priority Date/Time Associated Diagnosis [...] M.D. LAB BLOOD ADD-ON Performing Organization Address [facility] Co de Phone Number [facility] [address] [place] [address] * Heparin Anti-Xa Assay (09/14/2023 3:19 AM [...] [facility]/ZIP Co de Phone Number [facility] [address] [place], [place] [phone] [place] [address] DTL [facility] [address] [address] * IR Nephrostomy Tube Placement Left (09/13/2023 2:20 PM CDT) Anatomical Region Laterality Modality Genito Urinary, Vascular Int erventional RST LOS, Vascular Interventional ARZ LOS, Vascular Interventional FLA LOS Left X-Ray Angiography Impressions 09/13/2023 2:33 PM CDT Left 10 Serbian percutaneous nephrostomy tube placement. EP Narrative 09/13/2023 [...] tract was further dilated and a 10 Serbian nephrostomy tube was placed with loop formed [...] sedation timewas: 9 minutes. IMPRESSION: Left 10 Serbian percutaneous nephrostomy tube placement. EP Latisha CHOUDHARY IR PROCEDURE S * Bacterial Culture, Aerobic + Susceptibility (09/13/2023 2:17 PM CDT) Bacterial Culture, Aerobic + Susc No growth after 5 days of incubation. 09/18/2023 12:35 PM CDT DTL Fluid (Kidney, Left) 09/13/2023 2:17 PM CDT 09/13/2023 3:56 PM CDT Comment:Specimen Source Site : Fluid Latisha Whitehead M.D. LAB MICROBIOLOGY - GENERAL ORDERABLES [facility] [place] [address] [place] [address], [facility] [address] [place] [address] * Gram Stain (09/13/2023 2:17 PM CDT) Gram Stain No organisms seen. White blood cells, Rare 09/13/2023 9:02 PM CDT DTL Fluid (Kidney, Left) 09/13/2023 2:17 PM CDT 09/13/2023 3:56 PM CDT Comment:Specimen Source Site : Fluid Latisha Whitehead M.D. LAB MICROBIOLOGY - GENERAL ORDERABLES Performing Organization Address City/[facility]/ZIP Co de Phone Number [facility] [place] [address] [place], [place] [phone] [place] [address] [place] [address] * Fungal Culture, Routine (09/13/2023 2:17 PM CDT) Fungal Culture, Routine No growth after 24 days of incubation. 10/08/2023 1:02 AM CDT DTL Fluid (Kidney, Left) 09/13/2023 2:17 PM CDT 09/13/2023 3:56 PM CDT Comment:Specimen Source Site : Fluid Latisha Whitehead M.D. LAB MICROBIOLOGY - GENERAL ORDERABLES [facility] [place] [address] [place] [address], [facility] [address] [place] [address] * Bacterial Culture, Anaerobic + Susceptibility (09/13/2023 2:17 PM CDT) Pathologist [facility] Bacterial Culture, Anaerobic + Susc No growth after 14 days of incubation. 09/27/2023 8:04 AM CDT DTL Fluid (Kidney, Left) 09/13/2023 2:17 PM CDT 09/13/2023 3:56 PM CDT Comment:Specimen Source Site : Fluid Latisha Whitehead M.D. LAB MICROBIOLOGY - GENERAL ORDERABLES Performing Organization Address City/[facility]/ZIP Co de Phone Number [facility] [place] [address] [place], [place] [phone] [place] [address] * APTT (Activated Partial Thromboplastin Time) (09/13/2023 5:56 AM CDT) Only the most recent of18 resultswithin the time period is included. [facility] Activated Partial Thrombopl Time, P 35 25 - 37 sec 09/13/2023 7:14 AM CDT DTL Blood (Blood, Venous) 09/13/2023 5:56 AM CDT 09/13/2023 6:53 AM CDT Sumit Holbrook M.D. LAB BLOOD ADD-ON Performing Organization Address City/[facility]/ZIP Co de Phone Number [facility] [place] [address] [place], [place] [phone] [place] [address] [address] [place] [address] * (ABNORMAL) Basic Metabolic Panel (09/13/2023 5:56 AM CDT) Only the most recent of14 resultswithin the time period is included. Pathologist [facility] Potassium, S 3.7 3.6 - 5.2 mmol/L [...] CDT Paula Hernandez M.D. LAB BLOOD ADD-ON [facility] [place] [address] [place] [address], [facility] [address] [place] [address] * [place] Kidney DMSA (09/12/2023 12:21 PM [...] BLES Performing Organization Address City/[facility] Co de Phone Number [facility] [place] [address] [place] [address] * (ABNORMAL) Dipstick, Urine (09/09/2023 11:28 AM [...] LAB URINE ORDERA BLES Performing Organization Address [facility] Co de Phone Number [facility] [place] [address] [place] [address] * pH, Random, Urine (09/09/2023 11:28 AM CDT) Only the most recent of2 resultswithin the time period is included. pH, Random, U 6.3 4.5 - 8.0 09/09/2023 12:19 PM CDT DTL Urine 09/09/2023 11:2 8 AM CDT 09/09/2023 11:58 AM CDT Jeffery Church M.D. LAB URINE ORDERA BLES Performing Organization Address City/[facility] Co de Phone Number [facility] [place] [address] [place] [address] * (ABNORMAL) Microscopic Manual (09/09/2023 11:28 AM [...] CDT Jeffery Church M.D. LAB URINE ORDERA [facility] [place] [address] * (ABNORMAL) Bacterial Culture, Aerobic + Susceptibility, [...] Church M.D. LAB MICROBIOLOGY - GENERAL ORDERABLES [facility] [place] [address] [place] [address], [place] [facility] [address] [place] [address] * (ABNORMAL) Gram Stain, Urine (09/09/2023 11:28 AM CDT) Source Urine, Urine, Straight Catheter 09/09/2023 11:58 AM CDT DTL Gram Stain, U Positive(A) Negative 09/09/2023 12:16 PM CDT DTL Comment: Few Gram-negative bacilli ? Yeast Urine 09/09/2023 11:2 8 AM CDT 09/09/2023 11:58 AM CDT Jeffery Church M.D. LAB URINE ORDERA BLEBryon Performing Organization Address City/[facility]/ZIP Co de Phone Number [facility] [place] [address] [place] [address], [facility] DTL [facility] [address] [place] [address] * (ABNORMAL) Urinalysis, with Microscopic: Urine, Straight [...] 09/09/2023 1:02 PM CDT DTL Predicted Range 2480-29707 mg/24 h 09/09/2023 1:02 PM CDT DTL Comment Micro done on <2.5 mL 09/09/2023 12:27 PM CDT DTL Urine (Urine, Straight Catheter) 09/09/2023 11:28 AM CDT 09/09/2023 11:58 AM CDT Jeffery Church M.D. LAB URINE STEFFANY BRAVO Performing Organization Address [facility]/ZIP Co de Phone Number [facility] [place] [address] [place] [address], [place] DTL [facility] [address] [place] [address] * [place] Kidneys Bilateral with Bladder (09/09/2023 [...] the time period is included. Pathologist [facility] Prothrombin Time, P 12.5 9.4 - 12.5 sec 09/09/2023 8:14 AM CDT STMA INR 1.1 0.9 - 1.1 09/09/2023 8:14 AM CDT STMA Comment: ----ADDITIONAL INFORMATION---- Standard intensity warfarin therapeutic range: 2.0 to 3.0 ?? High intensity warfarin therapeutic range: 2.5 to 3.5 Blood (Blood, Venous) 09/09/2023 8:04 AM CDT 09/09/2023 8:08 AM CDT Jeffery Church M.D. LAB BLOOD ADD-ON [facility] [place] [address] [place] [address], [facility] [address] [place] [address] * (ABNORMAL) CBC with Differential, Blood (09/09/2023 8:04 AM CDT) Only the most recent of7 resultswithin the time period is included. Pathologist [facility] Hemoglobin 8.9(L) 13.2 - 16.6 g/dL 09/09/2023 [...] CDT Jeffery Church M.D. LAB BLOOD ADD-ON [facility] [place] [address] [place] [address], [facility] STMA [facility] [address] [place] [address] [facility] [address] [place] [address] * Type and Screen (with Reflex Antibody ID) (09/09/2023 8:03 AM CDT) Only the most recent of6 resultswithin the time period is included. ABORh O Pos Not applicable 09/09/2023 8:47 AM CDT STRM Antibody Screen Negative Negative 09/09/2023 9:02 AM CDT STRM Type & Screen Expiration 09/12/2023 23:59 09/09/2023 8:47 AM CDT STRM Testing Location [place] DEFAULT 09/09/2023 8:10 AM CDT STRM Blood (Blood, Venous) 09/09/2023 8:03 AM CDT 09/09/2023 8:10 AM CDT Jeffery Church M.D. LAB BLOOD BANK T EST ORDERABLES Performing Organization Address [facility] Co de Phone Number [facility] [place] [address] STRM [facility] [address] [place] [address] * Potassium (09/05/2023 4:56 AM CDT) Only the most recent of2 resultswithin the time period is included. Potassium, S 3.6 3.6 - 5.2 mmol/L 09/05/2023 5:49 AM CDT DTL Blood (Blood, Venous) 09/05/2023 4:56 AM CDT 09/05/2023 5:22 AM CDT Roxy Romero M.D. LAB BLOOD ADD-ON Performing Organization Address [facility] Co de Phone Number [facility] [place] [address] [place] [address], [facility] DTL [facility] [address] [place] [address] * [place] Fluoro Less Than 1 Hour [...] M.D. IMG FLUOROSCOPY PROCEDURES Performing Organization Address City/[facility]/ZIP [...] in the bladder lumen. Paula Hernandez M.D. [facility] * (ABNORMAL) Hemoglobin (08/31/2023 4:21 AM CDT) Hemoglobin 7.8(L) 13.2 - 16.6 g/dL 08/31/2023 4:47 AM CDT DTL Blood (Blood, Venous) 08/31/2023 4:21 AM CDT 08/31/2023 4:35 AM CDT Kimi Vieira M.D., M.S. LAB BLOO D ADD-ON Performing Organization Address City/[facility]/ZIP Co de Phone Number [facility] [place] [address] [place] [address], [facility] DTL [facility] [address] [place] [address] * Lactate (08/30/2023 9:50 PM CDT) Lactate, P 1.8 0.5 - 2.2 mmol/L 08/30/2023 10:09 PM CDT STMA Blood (Blood, Venous) 08/30/2023 9:50 PM CDT 08/30/2023 9:55 PM CDT Shannan Correa D.O., M.H.A. LAB BLOOD NON ADD-ON Performing Organization Address [facility]/ZIP Co de Phone Number [facility] [place] [address] [place] [address], [facility] STMA [facility] [address] [place] [address] * DX Chest AP or PA and [...] MUSE QTC Interval 403 ms MUSE P [place] 44 degrees MUSE R [place] 9 degrees MUSE T Wave [place] -76 degrees MUSE 08/30/2023 7:44 PM CDT [...] Boubacar Brock M.D. LAB BLOOD ADD-ON [facility] [address] [place] [address], [place] DTL [facility] [address] [place] [address] * Magnesium (08/26/2023 3:20 AM CDT) Only the most recent of6 resultswithin the time period is included. Magnesium, S 2.1 1.7 - 2.3 mg/dL 08/26/2023 4:04 AM CDT DT Blood (Blood, Venous) 08/26/2023 3:20 AM CDT 08/26/2023 3:50 AM CDT Boubacar Brock M.D. LAB BLOOD ADD-ON Performing Organization Address City/[facility]/ZIP Co de Phone Number [facility] [address] [place] [address], [facility] [address] [place] [address] * (ABNORMAL) Phosphorus Inorganic (08/23/2023 9:58 PM CDT) Only the most recent of2 resultswithin the time period is included. Phosphorus (Inorganic), S 2.1(L) 2.5 - 4.5 mg/dL 08/23/2023 10:45 PM CDT DT Blood (Blood, Venous) 08/23/2023 9:58 PM CDT 08/23/2023 10:30 PM CDT Paula Hernandez M.D. LAB BLOOD ADD-ON Performing Organization Address City/[facility]/ZIP Co de Phone Number [facility] [address] [place] [address], [facility] [address] [place] [address] * Triglycerides (08/23/2023 3:42 AM CDT) Only [...] CDT Boubacar Brock M.D. LAB BLOOD ADD-ON [facility] [address] [place] [address], [facility] DTL [facility] [address] [place] [address] * Glucose, POCT (08/22/2023 11:38 PM CDT) Glucose, POCT, B 117 70 - 140 mg/dL 08/23/2023 1:06 AM CDT PCLX Site Capillary 08/23/2023 1:06 AM CDT PCLX Last Intake NPO 08/23/2023 1:06 AM CDT PCLX Blood 08/22/2023 11:3 8 PM CDT 08/23/2023 1:06 AM CDT Unknown Provider LAB POCT ORDERABLES- MANUAL Performing Organization Address City/[facility]/ZIP Co de Phone Number [facility] [address] [place] [address], [facility] PCLX [facility] [address] [place] [address] * CT Abdomen Pelvis without IV Contrast [...] colon likelyrepresenting mild proctocolitis. Paula Hernandez M.D. [facility] PROCEDURES * Creatinine, Body Fluid (08/22/2023 [...] transport rates. All other fluids refer to [email or web address] for further interpretive information. This test has been modified from the information receptionist's instructions. Its performance characteristics were determined by [facility] in a manner consistent with CLIA requirements. This test has not been cleared or approved by the U.S. Food and Drug Administration. Fluid Type, Creatinine Fluid, Abdomen 08/22/2023 3:52 PM CDT DTL Fluid (Abdomen) 08/22/2023 3 :30 PM CDT 08/22/2023 6:36 PM CDT Corin Rnig M.D. LAB BODY FLUIDS AND STOOLS ORDERABLES [facility] [place] [address] [facility] [address] [place] [address] * IR PICC Line Placement (08/22/2023 8:35 AM CDT) Anatomical Region Laterality Modality Chest, Pelvis, Abdomen, Vasc ular Interventional RST LOS, Vascular Interventional ARZ LOS, Vascular Interventional FLA LOS N/A X-Ray Angiography Impressions 08/22/2023 9:05 AM CDT Placement of a right IJ vein single-lumen 4 Serbian tunneled PowerPICC ready for immediate use. NR [...] advanced into the IVC and a 4 Serbian dilator advanced over the wire and attached to a one-way stopcock. A suitable exit site in the right anterior chest was anesthetized and a small incision made. A 4 Serbian single-lumen PowerPICC was then tunneled from the [...] Wireadvanced into the IVC and a 4 Serbian dilator advanced over the wire andattached to a one-way stopcock. A suitable exit site in the right anteriorchest was anesthetized and a small incision made. A 4 Serbian single-lumen PowerPICC was then tunneled fromthe skin [...] of a right IJ vein single-lumen 4 Serbian tunneled PowerPICCready for immediate use. NR Kimi [...] M.D. LAB BLOOD ADD-ON Performing Organization Address [facility] Co de Phone Number [facility] [address] [place] [address], [facility] DTL [facility] [address] [place] [address] * Place peripherally inserted central catheter (PICC) [...] M.D. PROCEDURE/MINOR SURGICAL ORDERABLES Performing Organization Address [facility] de Phone Number MMODAL NA * DX [...] and management can be found on the Appography site. Link [email or web address] Findings discussed with ??Tayler Greenwood, ?? ([id number]) on 08/17/2023 7:11 PM. Procedure Note Jj [...] can be found on theAskMayoExpert site. [email or web address] Findings discussed with Tayler Greenwood MD ([id number]) on 08/17/2023 7:11 PM. IMPRESSION: 1. Aging, [...] [facility]/ZIP Co de Phone Number [facility] [address] [place] [address], [facility] [address] [place] [address] * Patient Status (08/15/2023 11:56 AM CDT) Only the most recent of2 resultswithin the time period is included. Temperature 36.2 37.0 deg C 08/15/2023 12:04 PM CDT STMA Blood 08/15/2023 11:5 6 AM CDT 08/15/2023 12:03 PM CDT Rae Gonzalez RESEARCH LEADER, VEHICLE DELIVERY WORKER, DNAP LAB BLOO D NON ADD-ON Performing Organization Address City/[facility]/ZIP Co de Phone Number [facility] [address] [place], [place] [address], [facility] [address] [place] [address] * Sodium, B (08/15/2023 11:56 AM CDT) Only the most recent of2 resultswithin the time period is included. Sodium, B 135 135 - 145 mmol/L 08/15/2023 12:06 PM CDT [facility] Blood (Blood, Arterial Line) 08/15/2023 11:56 AM CDT 08/15/2023 12:03 PM CDT Hayde Song M.D. LAB BLOOD NON ADD-O N [facility] [place] [address] [place] [address], [facility] STMA [facility] [address] [place] [address] * (ABNORMAL) Blood Gas with Coox, Arterial [...] Song M.D. LAB BLOOD NON ADD-O N [facility] [place] [address] [place] [address], [facility] [address] [place] [address] * Potassium, Blood (08/15/2023 11:56 AM CDT) Only the most recent of2 resultswithin the time period is included. Potassium, B 4.3 3.6 - 5.2 mmol/L 08/15/2023 12:07 PM CDT [facility] Blood (Blood, Arterial Line) 08/15/2023 11:56 AM CDT 08/15/2023 12:03 PM CDT Hayde Song M.D. LAB BLOOD NON ADD-O N Performing Organization Address City/[facility]/ZIP Co de Phone Number [facility] [place] [address] [place] [address], [facility] [address] [place] [address] * (ABNORMAL) Glucose, Whole Blood (08/15/2023 11:56 AM CDT) Only the most recent of2 resultswithin the time period is included. Glucose 144(H) 70 - 140 mg/dL 08/15/2023 12:06 PM CDT [facility] Blood (Blood, Arterial Line) 08/15/2023 11:56 AM CDT 08/15/2023 12:03 PM CDT Hayde Song M.D. LAB BLOOD ADD-ON [facility] [place] [address] [place] [address], [facility] [address] [place] [address] * (ABNORMAL) Calcium, Ionized (08/15/2023 11:56 AM CDT) Only the most recent of2 resultswithin the time period is included. Calcium, Ionized, B 4.53(L) 4.65 - 5.30 mg/dL 08/15/2023 12:07 PM CDT [facility] Blood (Blood, Arterial Line) 08/15/2023 11:56 AM CDT 08/15/2023 12:03 PM CDT Hayde Song M.D. LAB BLOOD NON ADD-O N [facility] [place] [address] [place] [address], [facility] [address] [place] [address] * [place] ARTL CATH/CNULA MONITOR [place], [place] [...] yes ?? Notable Events - arterial: none Hyade Song M.D. PROCEDURE/MINOR TESFAYE GICAL ORDERABLES * [...] ETT location: oral VL device: glide scope Dana scope blade size: 4 Tube size: 7.5 [...] CDT Comment:Specimen Source Site : Blood Narrative [facility] [place] - 08/20/2023 6:02 AM CDT Received Bactec aerobic and Bactec anaerobic bottles Carlos Alberto Henson M.D. LAB MICROBIOLOGY - G ENERAL ORDERABLES Performing Organization Address City/[facility]/ZIP Co de Phone Number [facility] [place] [address] [place], [place] [id number] [place] [address] [facility] [address] [place] [address] * (ABNORMAL) Hepatic Function Panel (08/13/2023 5:27 [...] Carlos Alberto Henson M.D. LAB BLOOD ADD-ON [facility] [place] [address] [place] [address], [facility] [address] [address] * Interpretation of Outside CT Abdomen and [...] are clear. Procedure Note Killian Montenegro M.B.B.S., [place] - 08/13/2023 EXAM: INTERPRETATION OF OUTSIDE CT [...] Advance Directives For more information, please contact: [phone] * Full Code (Latest Code Status on File) Date Activated Date Inactivated Comments 08/30/2023 10:40 PM 09/05/2023 6:15 PM Question Answer Comments Full Code: Not Discussed Due to: Patient not available * Full Code Date Activated Date Inactivated Comments 08/13/2023 4:30 PM 08/26/2023 6:58 PM Question Answer Comments Full Code: Discussed Care Teams Chemical Blender Relationship Specialty Start Date End Date Elsewhere, Pcp PCP - General Internal Medicine 08/13/23
--- OUTSIDE RECORDS SUMMARY | 2023-10-14 09:18 | XMS_ITS | Encounter Summary ---
Author Organization [facility] Address [address] [place] [address] Care Team Providers Care Dispenser Operator Name Role Phone Elsewhere, Pcp Primary Care Provider Unavailabl e Reason for Referral * Outpatient (Routine) - Authorized Specialty Diagnoses / Procedures Referred By Contac t Referred To Contact Urology Diagnoses Hematuria Paula Benton M.D. [address] [place] [address] [facility] Referral ID Status Reason Start Date Expiration Date V isits Requested Visits Authorized [id number] Authorized 09/15/2023 03/16/2025 1 1 Encounter Details Date Type Department Care Team (Late st Contact Info) Description 09/15/2023 Clinical Communication [facility] [address] [place] [address] Yasmine Loco Social History Tobacco Use Types [...] [facility] 09/09/2023 Sex and Gender Information Value Date Recorded Sex Assigned at Not on file Gender Identity Not on file Sexual Orientation Not on file documented as of this encounter Plan of Treatment Upcoming Encounters Date Type Department Care Team (Late st Contact Info) Description 10/14/2023 1:00 PM CDT Procedure visit Department of Urology in [place], [place] [address] [place] [address] Paula Hernandez M.D. [address] [place] [address] Scheduled Referrals Name Type Priority Associated Diagnoses [...] documented as of this encounter Care Teams Dispenser Operator Relationship Specialty Start Date End Date Elsewhere, Pcp PCP - General Internal Medicine 08/13/23 documented as of this encounter
--- OUTSIDE RECORDS SUMMARY | 2023-10-14 09:18 | XMS_ITS | Encounter Summary ---
Author Organization [facility] Address [address] [place] [address] Care Team Providers Care Leaf Stripper Name Role Phone Elsewhere, Pcp Primary Care Provider Unavailabl e Reason for Referral * Outpatient (Routine) - Authorized Specialty Diagnoses / Procedures Referred By Contac t Referred To Contact Diagnoses Hematuria Procedures URO Urethral cath change (UCC) Paula Hernandez M.D. [address] [place] [address] [facility] Referral ID Status Reason Start Date Expiration Date V isits Requested Visits Authorized [id number] Authorized 09/15/2023 09/14/2024 1 1 * Outpatient (Routine) - Authorized Specialty Diagnoses / Procedures Referred By Contac t Referred To Contact Radiology Diagnoses Hematuria Procedures IR Nephrostomy Tube Exchange Left Paula Hernandez M.D. [address] [place] [address] [facility] Referral ID Status Reason Start Date Expiration Date V isits Requested Visits Authorized [id number] Authorized 09/15/2023 09/14/2024 1 1 Reason for Visit * Reason Comments Blood in Urine Encounter Details Date Type Department Care Team (Latest Contact Info) Description 09/09/2023 7:24 AM CDT - 09/15/2023 5:28 PM CDT Hospital Encounter [facility], [facility], Sixth Floor [address] [place] [phone] Gerri Merrill M.D., Ph.D. [address] [place] [phone] Sumit Holbrook M.D. [address] [place] [phone] Hematuria (Primary Dx) Discharge Disposition: Home or Self Care Social History Tobacco Use Types Packs/Day Years Used Date Smoking Tobacco: Never Smokeless Tobacco: Never [facility] [employer] Answer Date Recorded In the past 12 months has [facility] [employer], gas, oil, or water [employer] threatened to shut off services in your [...] CDT DISCHARGE SUMMARY BRIEF OVERVIEW Hospital: [facility] Discharge Provider: Sumit Holbrook M.D. Primary Team: [facility] Urology Surgery - Chief Helga Rojas [...] IP CONSULT TO UROLOGY IP CONSULT TO SHEET METAL JOURNEYMAN WOUND CARE IP CONSULT TO HYPERBARIC MEDICINE IP CONSULT TO VASCULAR MEDICINE IP CONSULT TO DIETITIAN CONDITION AT DISCHARGE stable Discharge instructions were provided to the patient and caregiver(s). documented in this encounter Discharge Instructions * Discharge Instructions* Yasmine Loco - 09/09/2023 12:27 PM CDT You were discharged from the [facility] Urology Surgery - Chief A - Blue Service. Please identify this service name if you call with questions after hospitalization. * Attachments The following attachments cannot be sent through Care Everywhere. * Sulfamethoxazole/Trimethoprim (By mouth) (Greenlandic) documented in this encounter Medications at Time [...] home. Social Work also sent referral to [facility] and reached out to Service [...] reviewed. GI Function: Last BM Date: 09/11/23, [facility] Stool Chart: Type 5: Soft blobs with [...] 86.8 kg (09/09/2023) Current Weight: 84.5 kg [place] Body Weight (Calculated) : 75.3 kg BMI [...] or 5%. Estimated Needs: Total Calorie Needs: 9330-5114 calories/day Method to Estimate Energy Needs: kcal/kg [...] about patient's nutritional care please contact pager [phone] on weekdays 07:30-16:00 or [phone] on weekends/holidays ([facility]). * Clara Luu APRN, C.N.P., D.N.P. - [...] - 09/14/2359 09/14/23699 - 09/15/23 0659 Shift 1419-2038 3711-4555 0065-4585 24 Hour Total 4430-2461 [phone] 24 Hour Total INTAKE Other 30 60 [...] please contact Vascular and Interventional Radiology DEBBI ([phone]). Anticoagulation: A percutaneous nephrostomy tube is considered [...] care. Please feel free to page the [facility] Inpatient Consult Service at [phone] or the on-call resident at [phone] after 5 PM and on weekends with [...] . Neph tube clear yellow urine. I/O ([id number]): 1.9 L, 1.1 L from the neph [...] questions or concerns. Pager during business hours: [phone] Pager after hours: [phone] * Paula Hernandez M.D. - 09/13/2023 6:05 [...] in place draining clear yellow urine I/O ([id number]): Adequate urine output 2.7 L/248 1 L [...] questions or concerns. Pager during business hours: [phone] Pager after hours: [phone] * Raya Meza Pharm.D., R.Ph., [facility] - 09/12/2023 7:44 AM CDT Images from [...] follow for medicationuse optimization Pharm. YanciDJonah, R.Ph., [facility] Addendum: Heparin will be stopped on 09/13/23 at 0400 for procedure per Vascular Medicine. Will order anti-Xa and change aPTT lab to assess correlation for tomorrow, at 0400 Consider heparin per Anti-Xa monitoring only once heparin infusion resumed if anti-Xa and aPTT labscorrelate Electronically signed by: Benjamin West Pharm.D., R.Ph. 09/12/23 7:40 PM CDT * Paula Hernnadez M.D. - 09/12/2023 5:13 AM CDT Images [...] in place draining clear yellow urine I/O ([id number]): CBI paused for obs Labs: Hb: Hemoglobin [...] Date/Time Bacterial Culture, Aerobic + Susceptibility, Urine [[id number]] (Abnormal) (Susceptibility) Collected: 09/09/23 1128 Lab Status: [...] Susceptible Bacterial Culture, Aerobic + Susceptibility, Urine [[id number]] Collected: 09/03/23 1050 Lab Status: Final result [...] DVT - Hold Plavix and Eliquis -Bactrim [facility] Summary: Diet: regular Activity: ad kong DVT PPX: low intensity heparin drip GI PPX: none Bowel Regimen: senna, miralax IVF: none Abx/Microbiology: bactrim started 09/11 Pain Control: scheduled trospium Home Meds Resumed: enzalutamide, metoprolol, Crestor Held Home Meds: Xarelto, Plavix Consults: Vascular Medicine Paula Hernandez M.D. 09/12/2023 Please page the Urology Chief Service with questions or concerns. Pager during business hours: [phone] Pager after hours: [phone] * Js Yang M.D. - 09/11/2023 9:18 [...] Service [place] [phone] during business hours orat [phone] after hours. * Portillo Crespo Pharm.D., R.Ph., [...] at 0000 Mayur Collier PharmD, LUCERO, BCPS, [facility] Pager [phone] * Js Yang M.D. - 09/10/2023 9:50 [...] Service [place] [phone] during business hours orat [phone] after hours. * Quin Harrell Pharm.D., R.Ph., [...] R.N., C.W.C.N. - 09/09/2023 1:16 PM CDT [facility] Wound RN consulted to [...] None Unable to Measure N *Wound Bed Open;[place];Yellow;Fibrin/Slough Tissue Exposed None Odor None *Exudate Amount Small Drainage Description Serous;Perez Janiya-wound Assessment Intact;Fragile;[place];Purple;Maceration;White Periwound Treatment Liquid skin protectant (SurePrep) *Primary Dressing Gelling fiber/Hydrofiber (Aquacel Ag) *Primary Dressing Frequency of Change Daily & PRN *Secondary Dressing Foam (Sacral Mepilex Border) *Secondary Dressing Frequency of Change Daily & PRN Lengthy Treatment > 30 minutes > 30 minutes Ongoing management Nursing;Wound/rn circulating Partial head to toe skin assessment completed [...] PM CDT * Raya Meza Pharm.D., R.Ph., [facility] - 09/09/2023 11:17 AM CDT Images from [...] for medicationuse optimization Stephanie Meza Pharm.D., R.Ph., [facility] Admission Medication History Note Adherence issues: No concerns Medication list source: Patient, son, recent filling Hx Medication related information: Per pt, he takes amlodipine, mirabegron daily in the afternoon, around 1 to 2 pm-tucker, for no specific reasons Prior to Admission Medications Med List Status: Pharmacy Complete Set By: Raya Meza, Pharm.D., R.Ph., [facility] at 09/09/2023 11:16 AM Taking? Last Dose [...] follow Paula Hernandez M.D. Urology PGY-2 Pager #[phone] Please page Chief Urology at [phone] from 7 AM - 5 PM or at [phone] after hours with any questions/concerns. documented in [...] reviewed. GI Function: Last BM Date: 09/11/23, [facility] Stool Chart: Type 5: Soft blobs with [...] 86.8 kg (09/09/2023) Current Weight: 84.5 kg [place] Body Weight (Calculated) : 75.3 kg BMI [...] or 5%. Estimated Needs: Total Calorie Needs: 6108-8769 calories/day Method to Estimate Energy Needs: kcal/kg [...] about patient's nutritional care please contact pager [phone] on weekdays 07:30-16:00 or [phone] on weekends/holidays ([facility]). * Clara Luu, HYDRO PLANT TECHNICIAN, C.N.P., D.N.P. - 09/12/2023 11:59 AM CDTAssociated [...] admitted for CBI. He was transferred to [facility] after difficultywith irrigating his Jon and [...] ABDOMEN INCISIONAL; Surgeon: Boubacar Brock M.D.; Location: [facility] ROMB OR CYSTOSCOPY CYSTOGRAM VOIDING N/A [...] and recommendations. Please feel free to page [phone] [phone] after 5 PM and on weekends with additional questions. VIR will continue to follow * Alessandra Aguero D.O. - 09/09/2023 5:26 PM CDTAssociated Order(s): IP CONSULT TO VASCULAR MEDICINE VASCULAR MEDICINE CONSULT NOTE Requesting Physician: Gerri Merrill M.D.,* SUBJECTIVE REASON FOR CONSULT: assistance with AC management, patient on plavix and eliquis admitted with refractory hematuria requing CBI. Recommend heparin drip? thanks [facility] [phone] HISTORY OF PRESENT ILLNESS Mr. Vega is [...] stents placed in total (2016, no prior [place], completed after positive stress test) Recommended for [...] for radiation proctitis SOCIAL HISTORY Lives in [place], [place] OBJECTIVE AVSS General: Lying in bed, [...] with Dr. Victoria, the chief urology resident continuous loft operator. Please page chief Urology Service [place] [phone] [place] [phone] after hours. Paula Hernandez M.D. 09/09/23 9:10 [...] End of Shift Summary: Pt DC'd to [facility] with family. Patient educated on nephrostomy tube [...] Urology consulted after discussion with the catheter water treatment technician who advised that for this patient they are required to get approval from Urologyprior to placing catheter. ED Course as of 09/09/23 0958 TueSeptember 09, 2023 0822 Hemoglobin(!): 8.9 Down from 9.6 one-week ago 0822 Leukocytes(!): 14.5 New leukocytosis with neutrophilia 0822 INR: 1.1 0823 Discussed with the catheter water treatment technician. Bladder scan showed 125 mL. There [...] CDT Procedure visit Department of Urology in [place], [place] [address] [place] [address] Paula Hernandez M.D. [address] [place] [address] Pending Results Name Type Priority Associated Diagnoses Date /Time Prepare Red Blood Cells, 2 Units Blood Bank Routine 09/09/2023 8:03 AM CDT Scheduled Orders Name Type Priority [...] [facility] [address] [place] [address], [facility] DTL [facility] [address] [place] [address] * Heparin Anti-Xa Assay (09/14/2023 3:19 AM CDT) Pathologist [facility] Heparin Anti-Xa, P 0.11 IU/mL 2023 [...] Sumit Holbrook M.D. LAB BLOOD NON ADD-ON [place] [address] [place], [place] [address] [address] [place] [address] * (ABNORMAL) CBC without Differential (09/14/2023 3:19 AM CDT) Pathologist [facility] Hemoglobin 10.1(L) 13.2 - 16.6 g/dL [...] [facility] [address] [place] [address], [facility] DTL [facility] [address] [place] [address] * IR Nephrostomy Tube Placement Left (09/13/2023 2:20 PM CDT) Anatomical Region Laterality Modality Genito Urinary, Vascular Int erventional RST LOS, Vascular Interventional ARZ LOS, Vascular Interventional FLA LOS Left X-Ray Angiography Impressions 09/13/2023 2:33 PM CDT Left 10 [place] percutaneous nephrostomy tube placement. EP Narrative 09/13/2023 [...] tract was further dilated and a 10 [place] nephrostomy tube was placed with loop formed [...] sedation timewas: 9 minutes. IMPRESSION: Left 10 [place] percutaneous nephrostomy tube placement. EP Latisha Whitehead M.D. IMG IR PROCEDURE S * Fungal Culture, Routine (09/13/2023 2:17 PM CDT) Fungal Culture, Routine No growth after 24 days of incubation. 10/08/2023 1:02 AM CDT DTL Fluid (Kidney, Left) 09/13/2023 2:17 PM CDT 09/13/2023 3:56 PM CDT Comment:Specimen Source Site : Fluid Latisha Whitehead M.D. LAB MICROBIOLOGY - GENERAL ORDERABLES Performing Organization Address City/[facility]/ZIP Co de Phone Number [facility] [address] [place] [address], [facility] [address] [place] [address] * Bacterial Culture, Anaerobic + Susceptibility (09/13/2023 2:17 PM CDT) Bacterial Culture, Anaerobic + Susc No growth after 14 days of incubation. 09/27/2023 8:04 AM CDT DTL Fluid (Kidney, Left) 09/13/2023 2:17 PM CDT 09/13/2023 3:56 PM CDT Comment:Specimen Source Site : Fluid Latisha Whitehead M.D. LAB MICROBIOLOGY - GENERAL ORDERABLES Performing Organization Address City/[facility]/ZIP Co de Phone Number [facility] [address] [place] [address], [facility] [address] [place] [address] * Gram Stain (09/13/2023 2:17 PM CDT) Pathologist [facility] Gram Stain No organisms seen. White blood cells, Rare 09/13/2023 9:02 PM CDT DTL Fluid (Kidney, Left) 09/13/2023 2:17 PM CDT 09/13/2023 3:56 PM CDT Comment:Specimen Source Site : Fluid Latisha Whitehead M.D. LAB MICROBIOLOGY - GENERAL ORDERABLES Performing Organization Address City/[facility] Co de Phone Number [facility] [address] [place] [address] * Bacterial Culture, Aerobic + Susceptibility (09/13/2023 2:17 PM CDT) [facility] Bacterial Culture, Aerobic + Susc No growth after 5 days of incubation. 09/18/2023 12:35 PM CDT DTL Fluid (Kidney, Left) 09/13/2023 2:17 PM CDT 09/13/2023 3:56 PM CDT Comment:Specimen Source Site : Fluid Latisha Whitehead M.D. LAB MICROBIOLOGY - GENERAL ORDERABLES Performing Organization Address [facility] Co de Phone Number [facility] [address] [place] [address] * (ABNORMAL) CBC without Differential (09/13/2023 5:57 AM CDT) Pathologist [facility] Hemoglobin 9.3(L) 13.2 - 16.6 g/dL 09/13/2023 [...] M.D. LAB BLOOD ADD-ON Performing Organization Address [facility]/ZIP Co de Phone Number [facility] [address] [place] [address], [facility] [address] [place] [address] * Heparin Anti-Xa Assay (09/13/2023 5:56 AM [...] LAB BLOOD NON ADD-ON Performing Organization Address City/[facility]/ZIP Co de Phone Number [facility] [address] [place] [address], [facility] [address] [place] [address] * APTT (Activated Partial Thromboplastin Time) (09/13/2023 5:56 AM CDT) [facility] Activated Partial Thrombopl Time, P 35 25 - 37 sec 09/13/2023 7:14 AM CDT DTL Blood (Blood, Venous) 09/13/2023 5:56 AM CDT 09/13/2023 6:53 AM CDT Sumit Holbrook M.D. LAB BLOOD ADD-ON [facility] [address] [place] [address], [facility] [address] [place] [address] * (ABNORMAL) Basic Metabolic Panel (09/13/2023 5:56 AM CDT) [facility] Potassium, S 3.7 3.6 - 5.2 [...] [facility] [address] [place] [address], [facility] DTL [facility] [address] [place] [address] * NM Kidney DMSA (09/12/2023 12:21 PM [...] reduced radiotracer uptake asdescribed. Js Yang M.D. IM NM PROCEDURES * Transfuse Red Blood Cells [...] LAB BLOOD ADD-ON Performing Organization Address City/[facility] Co de Phone Number [facility] [address] [facility] [address] [place] [address] * (ABNORMAL) APTT (Activated Partial Thromboplastin Time) (09/12/2023 3:42 AM CDT) Pathologist [facility] Activated Partial Thrombopl Time, P 49(H) 25 - 37 sec 09/12/2023 4:35 AM CDT DTL Blood (Blood, Venous) 09/12/2023 3:42 AM CDT 09/12/2023 4:00 AM CDT Gerri Merrill M.D., Ph.D. LAB BLOOD A DD-ON Performing Organization Address [facility] de Phone Number [facility] [address] [place] [address] * (ABNORMAL) Basic Metabolic Panel (09/11/2023 8:23 [...] CDT Js Yang M.D. LAB BLOOD ADD-ON [place] [address] [place] [address], [facility] [address] [address] * (ABNORMAL) CBC without Differential (09/11/2023 8:23 [...] LAB BLOOD ADD-ON Performing Organization Address City/[facility]/ZIP Co de Phone Number [facility] [address] [place] [address] * (ABNORMAL) APTT (Activated Partial Thromboplastin Time) (09/10/2023 11:42 PM CDT) Activated Partial Thrombopl Time, P 47(H) 25 - 37 sec 09/11/2023 2:05 AM CDT DTL Blood (Blood, Venous) 09/10/2023 11:42 PM CDT 09/11/2023 2:05 AM CDT Gerri Merrill M.D., Ph.D. LAB BLOOD A DD-ON Performing Organization Address [facility] Co de Phone Number [facility] [address] [place] [address] * US Urinary Bladder (09/10/2023 8:41 PM [...] urinary catheter.No internal vascularity. Js Yang M.D. IM US PROCEDURES * (ABNORMAL) APTT (Activated Partial Thromboplastin Time) (09/10/2023 6:09 PM CDT) Pathologist [facility] Activated Partial Thrombopl Time, P 46(H) 25 - 37 sec 09/10/2023 7:47 PM CDT DTL Blood (Blood, Venous) 09/10/2023 6:09 PM CDT 09/10/2023 6:25 PM CDT Gerri Merrill M.D., Ph.D. LAB BLOOD A DD-ON Performing Organization Address City/[facility]/ZIP Co de Phone Number [facility] [address] [place] [address], [facility] [address] [place] [address] * (ABNORMAL) APTT (Activated Partial Thromboplastin Time) (09/10/2023 10:11 AM CDT) [facility] Activated Partial Thrombopl Time, P 63(H) 25 - 37 sec 09/10/2023 10:57 AM CDT DTL Blood (Blood, Venous) 09/10/2023 10:11 AM CDT 09/10/2023 10:40 AM CDT Gerri eMrrill M.D., Ph.D. LAB BLOOD A DD-ON Performing Organization Address City/[facility]/ZIP Co de Phone Number [facility] [address] [place], [place] [address] [address] [place] [address] * (ABNORMAL) CBC without Differential (09/10/2023 3:27 AM CDT) Pathologist [facility] Hemoglobin 8.1(L) [...] CDT Ko Victoria M.D. LAB BLOOD ADD-ON [facility] [address] [place], [place] [address] [address] [place] [address] * (ABNORMAL) APTT (Activated Partial Thromboplastin Time) (09/10/2023 12:06 AM CDT) [facility] Activated Partial Thrombopl Time, P 57(H) 25 - 37 sec 09/10/2023 1:05 AM CDT DTL Blood (Blood, Venous) 09/10/2023 12:06 AM CDT 09/10/2023 12:33 AM CDT Gerri Merrill M.D., Ph.D. LAB BLOOD A DD-ON Performing Organization Address City/[facility] Co de Phone Number [facility] [address] [place] [address], [facility] DTL [facility] [address] [place] [address] * APTT (Activated Partial Thromboplastin Time) (09/09/2023 5:08 PM CDT) Pathologist [facility] Activated Partial Thrombopl Time, P 31 25 - 37 sec 09/09/2023 5:24 PM CDT STMA Blood (Blood, Venous) 09/09/2023 5:08 PM CDT 09/09/2023 5:12 PM CDT Ko Victoria M.D. LAB BLOOD ADD-ON Performing Organization Address [facility] Co de Phone Number [facility] [address] [place] [address], [facility] STMA [facility] [address] [place] [address] * (ABNORMAL) Dipstick, Urine (09/09/2023 11:28 AM CDT) Pathologist [facility] Hemoglobin, QL, U Large(A) Negative 09/09/2023 [...] LAB URINE ORDERA BLES Performing Organization Address City/[facility]/ZIP Co de Phone Number [facility] [address] [place] [address] * pH, Random, Urine (09/09/2023 11:28 AM CDT) pH, Random, U 6.3 4.5 - 8.0 09/09/2023 12:19 PM CDT DTL Urine 09/09/2023 11:2 8 AM CDT 09/09/2023 11:58 AM CDT Jeffery Church M.D. LAB URINE ORDERA BLES Performing Organization Address City/[facility]/ZIP Co de Phone Number [facility] [address] [place] [address] * Osmolality, Urine (09/09/2023 11:28 AM CDT) Osmolality, U 380 150 - 1150 mOsm/kg 09/09/2023 12:19 PM CDT DTL Urine 09/09/2023 11:2 8 AM CDT 09/09/2023 11:58 AM CDT Jeffery Church M.D. LAB URINE ORDERA BLES [facility] [address] [place], [place] [address] [place] [address] 200 [place] [address] * (ABNORMAL) Microscopic Manual (09/09/2023 11:28 AM [...] LAB URINE ORDERA SHELLY Performing Organization Address [facility] de Phone Number [facility] [address] [facility] [address] [place] [address] * (ABNORMAL) Gram Stain, Urine (09/09/2023 11:28 AM CDT) Source Urine, Urine, Straight Catheter 09/09/2023 11:58 AM CDT DTL Gram Stain, U Positive(A) Negative 09/09/2023 12:16 PM CDT DTL Comment: Few Gram-negative bacilli ? Yeast Urine 09/09/2023 11:2 8 AM CDT 09/09/2023 11:58 AM CDT Jeffery Church M.D. LAB URINE STEFFANY CROWDERBryon Performing Organization Address [facility] de Phone Number [facility] [address] [place] [address], [facility] [address] [place] [address] * (ABNORMAL) Bacterial Culture, Aerobic + Susceptibility, [...] Church M.D. LAB MICROBIOLOGY - GENERAL ORDERABLES [facility] [address] [place] [address], [place] DTL [facility] [address] [place] [address] * (ABNORMAL) Urinalysis, with Microscopic: Urine, Straight [...] 09/09/2023 1:02 PM CDT DTL Predicted Range 2480-32606 mg/24 h 09/09/2023 1:02 PM CDT DTL Comment Micro done on <2.5 mL 09/09/2023 12:27 PM CDT DTL Urine (Urine, Straight Catheter) 09/09/2023 11:28 AM CDT 09/09/2023 11:58 AM CDT Jeffery Church M.D. LAB URINE ORDERA [facility] 200 [place] [address], [facility] [address] [place] [address] * US Kidneys Bilateral with Bladder (09/09/2023 [...] CDT Jeffery Church M.D. LAB BLOOD ADD-ON [facility] [address] [place] [address], [facility] [address] [place] [address] * (ABNORMAL) CBC with Differential, Blood (09/09/2023 [...] CDT Jeffery Church M.D. LAB BLOOD ADD-ON [facility] [address] [place] [address], [facility] STMA [facility] [address] [place], [place] [address] [place] [address] [address] [place] [address] * (ABNORMAL) Basic Metabolic Panel (09/09/2023 8:04 [...] M.D. LAB BLOOD ADD-ON Performing Organization Address [facility] Co de Phone Number [facility] [address] [place] [address], [facility] STMA [facility] [address] [place] [address] * Type and Screen (with Reflex Antibody [...] BANK T EST ORDERABLES Performing Organization Address [facility] Co de Phone Number [facility] [address] [place] [address], [facility] STRM [facility] [address] [place] [address] documented in this encounter Visit Diagnoses Diagnosis [...] Minutes, Every 24 hours, First dose on 09/10/23 at 1130, Drug Monitoring Program: Pharmacist to [...] 20 mg, oral, 2 times daily before morning and evening meals, First dose on Tue09/09/23 at 1600, Administer [...] 0904 (Given - Provider: Brittanie Lewis R.N.) rosuvastatin tablet 40 mg (CRESTOR) 40 mg, oral, Daily at bedtime, First dose on Tue09/09/23 at 2100 210 (Given - Provider: Lilia Whitney R.N.) 2101 [...] Brittanie Lewis R.N. - Reason: Patient/family refused) 09 (Not Given - Provider: Brittanie Lewis [...] 20 mg, oral, 2 times daily before morning and evening meals, First dose on Tue09/09/23 at 1600, Administer with water at least 1 hr prior to meals., Restriction Criteria (Pharmacy will review and approve if criteria met): Use in patients 65 years of age or older 0547 (Given - Provider: Lilia Whitney R.N.)1659 (Given - Provider: Leonardo Clark R.N.) 0551 (Given - Provider: Lilia Whitney R.N.)2101 (Given - Provider: Brittanie Lewis R.N.) 903 (Given - Provider: Brittanie Lewis R.N. - [...] 0 0550 (Given - Provider: Lilia Whitney RJonahNJonah) iohexoL 300 mg iodine/mL solution (OMNIPAQUE) (COMPLETED) [...] documented as of this encounter Care Teams Leaf Stripper Relationship Specialty Start Date End Date Elsewhere, Pcp PCP - General Internal Medicine 08/13/23 documented as of this encounter
--- OUTSIDE RECORDS SUMMARY | 2023-10-14 09:18 | XMS_ITS | Referral Summary ---
Author Organization [facility] Address [address] [place] [address] Care Team Providers Care Museum Registrar Name Role Phone Elsewhere, Pcp Primary Care Provider Unavailabl e Source Comments Patient records contain information from all sites at [facility]. For routine questions regarding patient records, call [phone] during business hours, M-F 8:00 AM - 5:00 PM Central Time. Record requests for emergency care only can be directed to [phone] at any time.[facility] Encounters Date Type Department Care Team Description 09/27/2023 Clinical Communication Department of Urology in [place], [place] [address] [place] [address] Paula Hernandez M.D. 09/21/2023 Clinical Communication Department of Urology in [place], [place] [address] [place] [address] Paula Hernandez M.D. 09/16/2023 Clinical Communication Department of Urology in [place], [place] [address] [place] [address] Provider, Unknown follow up questions 09/16/2023 Orders Only Department of Urology in [place], [place] [address] [place] [address] Paula Hernandez M.D. Hematuria Gross (Primary Dx) 09/15/2023 Clinical Communication [facility] [address] [place] [address] Yasmine Loco 09/09/2023 7:24 AM CDT - 09/15/2023 5:28 PM CDT Hospital Encounter [facility], [facility], Sixth Floor [address] [place] [phone] Gerri Merrill M.D., Ph.D. Sumit Holbrook M.D. Hematuria (Primary Dx) Discharge Disposition: Home or Self Care 09/09/2023 12:10 PM CDT Ancillary Procedure Department of Nursing 09/09/2023 Documentation Department of Urology in [place], [place] [address] [place] [phone] Ko Victoria M.D. 09/06/2023 Orders Only Section of Hyperbaric Medicine in [place], [place] [address] [place] [phone] Kira Ferraro APRN, C.N.P., M.S.N. 09/06/2023 Clinical Communication [facility] [address] [place] [phone] Yasmine Loco 08/30/2023 7:35 PM CDT - 09/05/2023 4:09 PM CDT Hospital Encounter [facility] [place], First Floor [address] [place] [phone] Kirstin Hughse M.D. Thompson, R. Houston, M.D. Hematuria (Primary Dx); Tachycardia; Hematuria Gross Discharge Disposition: Home-Health Care Svc 09/01/2023 10:05 AM CDT Ancillary Procedure Department of Nursing 08/31/2023 12:25 PM CDT Ancillary Procedure Department of General Surgery 08/31/2023 12:34 PM CDT Anesthesia Event [facility] [address] [place] [phone] Joe Stoll M.D. Benjamin Williamson APRN, BIOLOGY TUTOR 08/31/2023 12:36 PM CDT - 08/31/2023 2:31 PM CDT Surgery [facility] [address] [place] [phone] Mayur Alvarez M.D. CYSTOSCOPY EVACUATION CLOTS 08/30/2023 Documentation Department of Urology in [place], [place] [address] [place] [phone] Corin Ring M.D. 08/30/2023 Intake [facility] 08/26/2023 Orders Only Department of Urology in [place], [place] [address] [place] [phone] Paula Hernandez M.D. 08/13/2023 3:42 PM CDT - 08/26/2023 4:11 PM CDT Hospital Encounter [facility], [facility], [facility], Sixth Floor [address] [place] [phone] Darnell Garcia M.D. Chow, George K, M.D. Decline Functional Status [R53.81] (Primary Dx); Hematuria [R31.9] Discharge Disposition: Home or Self Care 08/23/2023 12:45 AM CDT Ancillary Procedure Department of Nursing 08/15/2023 8:30 AM CDT Anesthesia Event [facility] [address] [place] [phone] Hayde Song M.D. 08/15/2023 7:55 AM CDT - 08/15/2023 11:23 AM CDT Surgery [facility] [address] [place] [phone] Boubacar Brock M.D. Palliative EXPLORATORY LAPAROTOMY, CYSTOTOMY CLOSURE, RIGHT URETERAL STENT EXCHANGE 08/13/2023 4:35 PM CDT Ancillary Procedure Department of Radiology in [place], [place] [address] [place] [address] Carlos Ablerto Henson M.D. 08/13/2023 Intake [facility] [...] Tobacco: Never Tobacco Cessation:Counseling Given: Not Answered [facility] Utilities Answer Date Recorded In the past 12 months has e [employer], gas, oil, or water [employer] threatened to shut off services in your [...] your living situation today? I have a [facility] place to live 09/09/2023 Sex [...] CDT Procedure visit Department of Urology in [place], [place] [address] [place] [address] Paula Hernandez M.D. [address] [place] [address] Medical Devices Implanted Type Area Farm General Manager Device Identifier Shelf Expiration Date Model / Serial / Lot Clp Hrzn Ti 6 Clp Lg Orng - [id number] Implanted:Qt y: 1 on 08/15/2023 by Boubacar Brock M.D. at [facility] Hardware e.g. pins/screws /rods Abdomen Teleflex Ismole [id number] 02/29/2028 [id number] / / [id number] Clp Hrzn Ti 6 Clp Lg Orng - [id number] Implanted:Qt y: 1 on 08/15/2023 by Boubacar Brock M.D. at [facility] Hardware e.g. pins/screws /rods Abdomen Teleflex Ismole [id number] 02/29/2028 [id number] / / [id number] Clp Hrzn Ti 6 Clp Md Monty - [id number] Implanted:Qt y: 1 on 08/15/2023 by Boubacar Brock M.D. at [facility] Hardware e.g. pins/screws /rods Abdomen [employer] [id number] 03/13/2028 [id number] / / [id number] Clp Hrzn Ti 6 Clp Md Monty - [id number] Implanted:Qt y: 1 on 08/15/2023 by Boubacar Brock M.D. at [facility] Hardware e.g. pins/screws /rods Abdomen [employer] [id number] 03/21/2028 [id number] / / [id number] 3 Stnt Uret Inl 6fx24 - [id number] Implanted:Qt y: 1 on 08/15/2023 by Jakob De Paz M.D. at [facility] Ureteral Stent N/A: Ureter C.[employer].Bard [id number] 11/18/2027 [id number] / / [id number] Procedures Procedure Name Priority Date/Time Associated Diagnosis [...] LINE INSERTION Routine 08/15/2023 9:51 AM CDT PA US GUIDE VASC ACCESS Routine 08/15/2023 9:51 AM CDT PA ARTL CATH/CNULA MONITOR PERC Routine 08/15/2023 9:51 [...] LAB BLOOD ADD-ON [facility] [address] [place] [address] * Heparin Anti-Xa Assay (09/14/2023 3:19 AM [...] LAB BLOOD NON ADD-ON Performing Organization Address [facility] Co de Phone Number [facility] [address] [place], [place] [phone] [place] [address] [address] [place] [address] * IR Nephrostomy Tube Placement Left (09/13/2023 2:20 PM CDT) Anatomical Region Laterality Modality Genito Urinary, Vascular Int erventional RST LOS, Vascular Interventional ARZ LOS, Vascular Interventional FLA LOS Left X-Ray Angiography Impressions 09/13/2023 2:33 PM CDT Left 10 Congolese percutaneous nephrostomy tube placement. EP Narrative 09/13/2023 [...] tract was further dilated and a 10 Congolese nephrostomy tube was placed with loop formed [...] sedation timewas: 9 minutes. IMPRESSION: Left 10 Congolese percutaneous nephrostomy tube placement. EP Latisha Whitehead M.D. IMG IR PROCEDURE S * Bacterial Culture, Aerobic + Susceptibility (09/13/2023 2:17 PM CDT) Bacterial Culture, Aerobic + Susc No growth after 5 days of incubation. 09/18/2023 12:35 PM CDT DTL Fluid (Kidney, Left) 09/13/2023 2:17 PM CDT 09/13/2023 3:56 PM CDT Comment:Specimen Source Site : Fluid Latisha Whitehead M.D. LAB MICROBIOLOGY - GENERAL ORDERABLES [facility] [address] [place] [address], [facility] DTL [facility] [address] [place] [address] * Gram Stain (09/13/2023 2:17 PM CDT) Gram Stain No organisms seen. White blood cells, Rare 09/13/2023 9:02 PM CDT DTL Fluid (Kidney, Left) 09/13/2023 2:17 PM CDT 09/13/2023 3:56 PM CDT Comment:Specimen Source Site : Fluid Latisha Whitehead M.D. LAB MICROBIOLOGY - GENERAL ORDERABLES Performing Organization Address City/[facility]/ZIP Co de Phone Number [facility] [address] [place], [place] [address] [place] [address] [address] [place] [address] * Fungal Culture, Routine (09/13/2023 2:17 PM CDT) Fungal Culture, Routine No growth after 24 days of incubation. 10/08/2023 1:02 AM CDT DTL Fluid (Kidney, Left) 09/13/2023 2:17 PM CDT 09/13/2023 3:56 PM CDT Comment:Specimen Source Site : Fluid Latisha Whitehead M.D. LAB MICROBIOLOGY - GENERAL ORDERABLES Performing Organization Address City/[facility]/ZIP Co de Phone Number [facility] [address] [place], [place] [address] [address] [place] [address] * Bacterial Culture, Anaerobic + Susceptibility (09/13/2023 2:17 PM CDT) Bacterial Culture, Anaerobic + Susc No growth after 14 days of incubation. 09/27/2023 8:04 AM CDT DTL Fluid (Kidney, Left) 09/13/2023 2:17 PM CDT 09/13/2023 3:56 PM CDT Comment:Specimen Source Site : Fluid Latisha Whitehead M.D. LAB MICROBIOLOGY - GENERAL ORDERABLES Performing Organization Address [facility] Co de Phone Number [facility] [address] [place], [place] [address] [place] [address] * APTT (Activated Partial Thromboplastin Time) (09/13/2023 5:56 AM CDT) Only the most recent of18 resultswithin the time period is included. [facility] Activated Partial Thrombopl Time, P 35 25 - 37 sec 09/13/2023 7:14 AM CDT DTL Blood (Blood, Venous) 09/13/2023 5:56 AM CDT 09/13/2023 6:53 AM CDT Sumit Holbrook M.D. LAB BLOOD ADD-ON Performing Organization Address [facility] Co de Phone Number [phone] [place] [address] * (ABNORMAL) Basic Metabolic Panel (09/13/2023 5:56 AM CDT) Only the most recent of14 resultswithin the time period is included. [facility] Potassium, S 3.7 3.6 - [...] ADD-ON [facility] [address] [place] [address], [facility] [address] [place] [address] * NM Kidney DMSA (09/12/2023 12:21 PM [...] RAD IMAGI NG PROCEDURES Performing Organization Address [facility] Co de Phone Number [facility] NA * Osmolality, Urine (09/09/2023 11:28 AM CDT) Only the most recent of2 resultswithin the time period is included. Osmolality, U 380 150 - 1150 mOsm/kg 09/09/2023 12:19 PM CDT DTL Urine 09/09/2023 11:2 8 AM CDT 09/09/2023 11:58 AM CDT Jeffery Church M.D. LAB URINE ORDERA BLES Performing Organization Address City/[facility]/ZIP Co de Phone Number [facility] [address] [place] [address], [facility] DTL [facility] [address] [place] [address] * (ABNORMAL) Dipstick, Urine (09/09/2023 11:28 AM [...] URINE ORDERA BLES Performing Organization Address City/[facility]/ZIP Co de Phone Number [facility] [address] [place] [address] * pH, Random, Urine (09/09/2023 11:28 AM CDT) Only the most recent of2 resultswithin the time period is included. pH, Random, U 6.3 4.5 - 8.0 09/09/2023 12:19 PM CDT DTL Urine 09/09/2023 11:2 8 AM CDT 09/09/2023 11:58 AM CDT Jeffery Church M.D. LAB URINE ORDERA BLEBryon Performing Organization Address City/[facility]/ZIP Co de Phone Number [facility] [address] [place] [address], [facility] [address] [address] * (ABNORMAL) Microscopic Manual (09/09/2023 11:28 AM [...] Jeffery Church M.D. LAB URINE STEFFANY BRAVO [facility] [address] [place] [address], [facility] [address] [place] [address] * (ABNORMAL) Bacterial Culture, Aerobic + Susceptibility, [...] MICROBIOLOGY - GENERAL ORDERABLES Performing Organization Address City/[facility] Co de Phone Number [facility] [address] [place] [address], [facility] [address] [address] * (ABNORMAL) Gram Stain, Urine (09/09/2023 11:28 AM CDT) Source Urine, Urine, Straight Catheter 09/09/2023 11:58 AM CDT DTL Gram Stain, U Positive(A) Negative 09/09/2023 12:16 PM CDT DTL Comment: Few Gram-negative bacilli ? Yeast Urine 09/09/2023 11:2 8 AM CDT 09/09/2023 11:58 AM CDT Jeffery Church M.D. LAB URINE ORDERA BLES Performing Organization Address City/[facility]/ZIP Co de Phone Number [facility] [address] [place], [place] [address] DTL [facility] [address] [place] [address] * (ABNORMAL) Urinalysis, with Microscopic: Urine, Straight [...] 09/09/2023 1:02 PM CDT DTL Predicted Range 2480-74197 mg/24 h 09/09/2023 1:02 PM CDT DTL Comment Micro done on <2.5 mL 09/09/2023 12:27 PM CDT DTL Urine (Urine, Straight Catheter) 09/09/2023 11:28 AM CDT 09/09/2023 11:58 AM CDT Jeffery Church M.D. LAB URINE STEFFANY BRAVO [facility] [address] [place] [address], [facility] DTL [facility] [address] [place] [address] * US Kidneys Bilateral with Bladder (09/09/2023 [...] CDT Jeffery Church M.D. LAB BLOOD ADD-ON [facility] [address] [place] [address], [facility] [address] [place] [address] * (ABNORMAL) CBC with Differential, Blood (09/09/2023 8:04 AM CDT) Only the most recent of7 resultswithin the time period is included. Pathologist [facility] Hemoglobin 8.9(L) 13.2 - 16.6 g/dL 09/09/2023 [...] LAB BLOOD ADD-ON Performing Organization Address City/[facility]/ZIP Co de Phone Number [facility] [address] [place] [address], [facility] STMA [facility] [address] [place] [address] DHPM [facility] [address] [place] [address] * Type and Screen (with Reflex Antibody ID) (09/09/2023 8:03 AM CDT) Only the most recent of6 resultswithin the time period is included. Pathologist [facility] ABORh O Pos Not applicable 09/09/2023 8:47 AM CDT STRM Antibody Screen Negative Negative 09/09/2023 9:02 AM CDT STRM Type & Screen Expiration 09/12/2023 23:59 09/09/2023 8:47 AM CDT STRM Testing Location [place] DEFAULT 09/09/2023 8:10 AM CDT STRM Blood (Blood, Venous) 09/09/2023 8:03 AM CDT 09/09/2023 8:10 AM CDT Jeffery Church M.D. LAB BLOOD BANK T EST ORDERABLES Performing Organization Address City/[facility]/ZIP Co de Phone Number [facility] [address] [place] [address], [facility] STRM [facility] [address] [place] [address] * Potassium (09/05/2023 4:56 AM CDT) Only the most recent of2 resultswithin the time period is included. Potassium, S 3.6 3.6 - 5.2 mmol/L 09/05/2023 5:49 AM CDT DTL Blood (Blood, Venous) 09/05/2023 4:56 AM CDT 09/05/2023 5:22 AM CDT Roxy Romero M.D. LAB BLOOD ADD-ON Performing Organization Address [facility] Co de Phone Number [facility] [address] [place] [address], [facility] [address] [place] [address] * FL Fluoro Less Than 1 Hour [...] M.D. IMG FLUOROSCOPY PROCEDURES Performing Organization Address [facility]/ZIP Co de Phone Number 152 H[facility] [...] M.D., M.S. LAB BLOO D ADD-ON [facility] [address] [place] [address], [facility] [address] [place] [address] * Lactate (08/30/2023 9:50 PM CDT) Pathologist [facility] Lactate, P 1.8 0.5 - 2.2 mmol/L 08/30/2023 10:09 PM CDT STMA Blood (Blood, Venous) 08/30/2023 9:50 PM CDT 08/30/2023 9:55 PM CDT Shannan Correa D.O., M.H.A. LAB BLOOD NON ADD-ON [facility] [address] [place] [address], [place] [facility] [address] [place] [address] * DX Chest AP or PA and [...] included. Ventricular Rate ECG/Min 145 BPM MUSE PA Interval 136 ms MUSE QRSD Interval 64 ms MUSE QT Interval 260 ms MUSE QTC Interval 403 ms MUSE P [place] 44 degrees MUSE R [place] 9 degrees MUSE T Wave [place] -76 degrees MUSE 08/30/2023 7:44 PM CDT [...] LAB BLOOD ADD-ON Performing Organization Address City/[facility]/ZIP Co de Phone Number [facility] [address] [place] [address], [facility] [address] [place] [address] * Magnesium (08/26/2023 3:20 AM CDT) Only the most recent of6 resultswithin the time period is included. Magnesium, S 2.1 1.7 - 2.3 mg/dL 08/26/2023 4:04 AM CDT DTL Blood (Blood, Venous) 08/26/2023 3:20 AM CDT 08/26/2023 3:50 AM CDT Boubacar Brock M.D. LAB BLOOD ADD-ON Performing Organization Address City/[facility]/ZIP Co de Phone Number [facility] [address] [place], [place] [address] [place] [address] [address] [place] [address] * (ABNORMAL) Phosphorus Inorganic (08/23/2023 9:58 PM CDT) Only the most recent of2 resultswithin the time period is included. [facility] Phosphorus (Inorganic), S 2.1(L) 2.5 - 4.5 mg/dL 08/23/2023 10:45 PM CDT DT Blood (Blood, Venous) 08/23/2023 9:58 PM CDT 08/23/2023 10:30 PM CDT Paula Hernandez M.D. LAB BLOOD ADD-ON Performing Organization Address City/[facility] Co de Phone Number [phone] [place] [address] * Triglycerides (08/23/2023 3:42 AM CDT) Only the most recent of2 resultswithin the time period is included. [facility] Triglycerides 106 mg/dL 08/23/2023 4:50 AM CDT [facility] Comment: ----REFERENCE VALUE---- Normal: <150 mg/dL Borderline High: 150-199 mg/dL High: 200-499 mg/dL Very High: > or =500 mg/dL Fasting (8 HR or more) Yes 08/23/2023 4:19 AM CDT DT Blood (Blood, Venous) 08/23/2023 3:42 AM CDT 08/23/2023 4:19 AM CDT Boubacar Brock M.D. LAB BLOOD ADD-ON Performing Organization Address City/[facility]/ZIP Co de Phone Number [address] [address] * Glucose, POCT (08/22/2023 11:38 PM CDT) [facility] Glucose, POCT, B 117 70 - 140 mg/dL 08/23/2023 1:06 AM CDT PCLX Site Capillary 08/23/2023 1:06 AM CDT PCLX Last Intake NPO 08/23/2023 1:06 AM CDT PCLX Blood 08/22/2023 11:3 8 PM CDT 08/23/2023 1:06 AM CDT Unknown Provider LAB POCT ORDERABLES- MANUAL POC [facility] [address] [place] [address], [facility] PCLX [facility] POC [address] [place] [address] * CT Abdomen Pelvis without IV Contrast [...] colon likelyrepresenting mild proctocolitis. Paula Hernandez M.D. [facility] PROCEDURES * Creatinine, Body Fluid (08/22/2023 [...] transport rates. All other fluids refer to www.[employer].Savedaily for further interpretive information. This test has been modified from the web worker's instructions. Its performance characteristics were determined by [facility] in a manner consistent with CLIA requirements. This test has not been cleared or approved by the U.S. Food and Drug Administration. Fluid Type, Creatinine Fluid, Abdomen 08/22/2023 3:52 PM CDT DTL Fluid (Abdomen) 08/22/2023 3 :30 PM CDT 08/22/2023 6:36 PM CDT Corin Ring M.D. LAB BODY FLUIDS AND STOOLS ORDERABLES [facility] [address] [place] [address], [facility] [address] [place] [address] * IR PICC Line Placement (08/22/2023 8:35 AM CDT) Anatomical Region Laterality Modality Chest, Pelvis, Abdomen, Vasc ular Interventional RST LOS, Vascular Interventional ARZ LOS, Vascular Interventional FLA LOS N/A X-Ray Angiography Impressions 08/22/2023 9:05 AM CDT Placement of a right IJ vein single-lumen 4 Congolese tunneled PowerPICC ready for immediate use. NR [...] advanced into the IVC and a 4 Congolese dilator advanced over the wire and attached to a one-way stopcock. A suitable exit site in the right anterior chest was anesthetized and a small incision made. A 4 Congolese single-lumen PowerPICC was then tunneled from the [...] Wireadvanced into the IVC and a 4 Congolese dilator advanced over the wire andattached to a one-way stopcock. A suitable exit site in the right anteriorchest was anesthetized and a small incision made. A 4 Congolese single-lumen PowerPICC was then tunneled fromthe skin [...] of a right IJ vein single-lumen 4 Congolese tunneled PowerPICCready for immediate use. NR Kimi [...] Latisha Whitehead M.D. LAB BLOOD ADD-ON [facility] [address] [place] [address], [facility] Laboratories[facility] [address] [place] [address] * Place peripherally inserted central catheter (PICC) [...] and management can be found on the [employer] site. Link [email or web address]/clinical-answers/[email or web address]/cpm-[email or web address] 43021 Findings discussed with ??Tayler [place], ?? ([id number]) on 08/17/2023 7:11 PM. Procedure Note Jj [...] management can be found on theAskMayoExpert site. [email or web address]/clinical-answers/[email or web address]/[email or web address] -[email or web address] 1725 Findings discussed with Tayler Greenwood MD ([id number]) on 08/17/2023 7:11 PM. IMPRESSION: 1. Aging, [...] with tip andsidehole in stomach. Remainder negative. Buobacar Brock M.D. IMG DIAGNOSTIC IMAGI NG PROCEDURES * Lactate, B - Intra-op (08/15/2023 11:56 AM CDT) Only the most recent of2 resultswithin the time period is included. Lactate, B 1.1 0.5 - 2.2 mmol/L 08/15/2023 12:06 PM CDT [facility] Blood (Blood, Venous) 08/15/2023 11:56 AM CDT 08/15/2023 12:03 PM CDT Hayde Song M.D. LAB BLOOD NON ADD-O N [facility] [address] [place] [address] * Patient Status (08/15/2023 11:56 AM CDT) Only the most recent of2 resultswithin the time period is included. Temperature 36.2 37.0 deg C 08/15/2023 12:04 PM CDT [facility] Blood 08/15/2023 11:5 6 AM CDT 08/15/2023 12:03 PM CDT Rae Gonzalez FLAVOR ROOM WORKER, BIOLOGY TUTOR, DNAP LAB BLOO D NON ADD-ON Performing Organization Address City/[facility]/ZIP Co de Phone Number [facility] [address] [place] [address] * Sodium, B (08/15/2023 11:56 AM CDT) Only the most recent of2 resultswithin the time period is included. Sodium, B 135 135 - 145 mmol/L 08/15/2023 12:06 PM CDT [facility] Blood (Blood, Arterial Line) 08/15/2023 11:56 AM CDT 08/15/2023 12:03 PM CDT Hayde Song M.D. LAB BLOOD NON ADD-O N [facility] [address] [place] [address] * (ABNORMAL) Blood Gas with Coox, Arterial (08/15/2023 11:56 AM CDT) Only the most recent of2 resultswithin the time period is included. Pathologist [facility] pO2 166(H) 83 - 108 mm Hg [...] ADD-O N [facility] [address] [place] [address], [place] [facility] [address] [place] [address] * Potassium, Blood (08/15/2023 11:56 AM CDT) Only the most recent of2 resultswithin the time period is included. Pathologist [facility] Potassium, B 4.3 3.6 - 5.2 mmol/L 08/15/2023 12:07 PM CDT [facility] Blood (Blood, Arterial Line) 08/15/2023 11:56 AM CDT 08/15/2023 12:03 PM CDT Hayde Song M.D. LAB BLOOD NON ADD-O N Performing Organization Address City/[facility] Co de Phone Number [facility] [address] [place] [address], [facility] [address] [place] [address] * (ABNORMAL) Glucose, Whole Blood (08/15/2023 11:56 AM CDT) Only the most recent of2 resultswithin the time period is included. Glucose 144(H) 70 - 140 mg/dL 08/15/2023 12:06 PM CDT [facility] Blood (Blood, Arterial Line) 08/15/2023 11:56 AM CDT 08/15/2023 12:03 PM CDT Hayde Song M.D. LAB BLOOD ADD-ON Performing Organization Address [facility] de Phone Number [facility] [address] [place] [address], [facility] [address] [place] [address] * (ABNORMAL) Calcium, Ionized (08/15/2023 11:56 AM CDT) Only the most recent of2 resultswithin the time period is included. Calcium, Ionized, B 4.53(L) 4.65 - 5.30 mg/dL 08/15/2023 12:07 PM CDT [facility] Blood (Blood, Arterial Line) 08/15/2023 11:56 AM CDT 08/15/2023 12:03 PM CDT Hayde Song M.D. LAB BLOOD NON ADD-O N [facility] [address] [place] [address], [facility] [address] [place] [address] * PA ARTL CATH/CNULA MONITOR PERC, PA US GUIDE VASC ACCESS, LDA ANE ARTERIAL [...] ETT location: oral VL device: glide scope [place] scope blade size: 4 Tube size: 7.5 [...] : Blood Narrative [facility] - 08/20/2023 6:02 AM CDT Received Bactec aerobic and Bactec anaerobic bottles Carlos Alberto Henson M.D. LAB MICROBIOLOGY - [facility] ORDERABLES [facility] [address] [place] [address], [place] DTL [facility] [address] [place] [address] * (ABNORMAL) Hepatic Function Panel (08/13/2023 5:27 [...] Alberto Henson M.D. LAB BLOOD ADD-ON [facility] [address] [place] [address], [facility] [address] [place] [address] * Interpretation of Outside CT Abdomen and [...] Advance Directives For more information, please contact: [phone] * Full Code (Latest Code Status on File) Date Activated Date Inactivated Comments 08/30/2023 10:40 PM 09/05/2023 6:15 PM Question Answer Comments Full Code: Not Discussed Due to: Patient not available * Full Code Date Activated Date Inactivated Comments 08/13/2023 4:30 PM 08/26/2023 6:58 PM Question Answer Comments Full Code: Discussed Care Teams Museum Registrar Relationship Specialty Start Date End Date Elsewhere, Pcp PCP - General Internal Medicine 08/13/23
--- OUTSIDE RECORDS SUMMARY | 2023-10-14 09:18 | XMS_ITS | Encounter Summary ---
Author Organization [facility] Address [address] [place] [address] Care Team Providers Care Hoop Flaring Machine Operator Name Role Phone Elsewhere, Pcp Primary Care Provider Unavailabl e Reason for Referral * Outpatient (Routine) - Authorized Specialty Diagnoses / Procedures Referred By Contac t Referred To Contact Diagnoses Hematuria Gross Procedures DX Chest AP or PA and Lateral 2 Views Paula Hernandez M.D. [address] [place] [address] [facility] Referral ID Status Reason Start Date Expiration Date V isits Requested Visits Authorized [id number] Authorized 09/16/2023 09/15/2024 1 1 Encounter Details Date Type Department Care Team (Late st Contact Info) Description 09/16/2023 Orders Only Department of Urology in [place], [place] [address] [place] [phone] Paula Hernandez M.D. [address] [place] [phone] Hematuria Gross (Primary Dx) Social History Tobacco Use Types Packs/Day Years Used Date Smoking Tobacco: Never Smokeless Tobacco: Never [facility] Utilities Answer Date Recorded In the [...] living situation today? I have a [facility] place to live 09/09/2023 Sex and Gender Information Value Date Recorded Sex Assigned at Not on file Gender Identity Not on file Sexual Orientation Not on file documented as of this encounter Plan of Treatment Upcoming Encounters Date Type Department Care Team (Late st Contact Info) Description 10/14/2023 1:00 PM CDT Procedure visit Department of Urology in [place], [place] [address] [place] [address] Paula Hernandez M.D. [address] [place] [address] Scheduled Orders Name Type Priority Associated Diagnoses [...] documented as of this encounter Care Teams Hoop Flaring Machine Operator Relationship Specialty Start Date End Date Elsewhere, Pcp PCP - General Internal Medicine 08/13/23 documented as of this encounter
--- OUTSIDE RECORDS SUMMARY | 2023-10-14 09:18 | XMS_ITS ---
Author Organization [facility] Address [address] [place] [address] Care Team Providers Care Concrete Engineer Name Role Phone Elsewhere, Pcp Primary [...] On Elapsed Days Session Dose Total Dose [id number] 04/28/2020 32 300 cGy 6,000 cGy Lifetime Dose Tracking * Chemical Lifetime Dose Automatic Entry Manual Entr y Radiation 20.4 mGy 20.4 mGy 0 mGy Fluoro Time 2.005 minutes 2.005 minutes 0 minutes DAP (uGy-m2) 479.6 uGy-m2 479.6 uGy-m2 0 uGy-m2
--- OUTSIDE RECORDS SUMMARY | 2023-10-14 09:18 | XMS_ITS | Encounter Summary ---
Author Organization [facility] Address [address] [place] [address] Care Team Providers Care Security Operations Engineer Name Role Phone Elsewhere, Pcp Primary Care Provider Unavailabl e Encounter Details Date Type Department Care Team (Late st Contact Info) Description 09/27/2023 Clinical Communication Department of Urology in [place], [place] [address] [place] [address] Paula Hernandez M.D. [address] [place] [address] Social History Tobacco Use Types Packs/Day Years Used Date Smoking Tobacco: Never Smokeless Tobacco: Never [facility] Utilities Answer Date Recorded In the past 12 months has [facility] electric, gas, oil, or water [employer] threatened to shut off services in your [...] [facility] 09/09/2023 Sex and Gender [...] CDT Procedure visit Department of Urology in [place], [place] [address] [place] [address] Paula Hernandez M.D. [address] [place] [address] documented as of this encounter Visit Diagnoses Not on filedocumented in this encounter Care Teams Security Operations Engineer Relationship Specialty Start Date End Date Elsewhere, Pcp PCP - General Internal Medicine 08/13/23 documented as of this encounter
--- OUTSIDE RECORDS SUMMARY | 2023-10-14 09:18 | XMS_ITS | Encounter Summary ---
Author Organization [facility] Address [address] [place] [address] Care Team Providers Care Wood Stock Blank Handler Name Role Phone Elsewhere, Pcp Primary Care Provider Unavailabl e Reason for Visit * Reason Onset Date Comments follow up questions 09/16/2023 Encounter Details Date Type Department Care Team (Latest Contact Info) Description 09/16/2023 Clinical Communication Department of Urology in [place], [place] [address] [place] [address] Provider, Unknown follow up questions Social History Tobacco Use Types Packs/Day Years Used Date Smoking Tobacco: Never Smokeless Tobacco: Never [employer] Utilities Answer Date Recorded In the past 12 months has [facility] [employer], gas, oil, or water [employer] threatened to shut off services in your [...] a [facility] place [facility] live 09/09/2023 Sex [...] Urology in [place], [place] [address] [place] [address] Paula Hernandez M.D. 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
--- OUTSIDE RECORDS SUMMARY | 2023-10-14 09:18 | XMS_ITS ---
Author Organization [facility] Address [address] [place] [address] Care Team Providers Care Field Consultant Name Role Phone Unavailable Unavailable Unavailable Surgery Details Not on file Complications Check Surgery Details section. Procedure Estimated Blood Loss Check Surgery Details section. Procedure Findings Check Surgery Details section. Procedure Specimens Taken Check Surgery Details section.
--- OUTSIDE RECORDS SUMMARY | 2023-10-14 09:18 | XMS_ITS | Encounter Summary ---
Author Organization [facility] Address [address] [place] [address] Care Team Providers Care Activities Assistant Name Role Phone Elsewhere, Pcp Primary Care Provider Unavailabl e Encounter Details Date Type Department Care Team (Late st Contact Info) Description 09/21/2023 Clinical Communication Department of Urology in [place], [place] [address] [place] [address] Paula Hernandez M.D. [address] [place] [address] Social History Tobacco Use Types Packs/Day Years Used Date Smoking Tobacco: Never Smokeless Tobacco: Never [facility] Utilities Answer Date Recorded In the past 12 months has [facility] electric, gas, oil, or water [employer] threatened to shut off services in your [...] 2:37 PM CDT I called the patient's [place] physician who he saw yesterday, 09/19 in [...] CDT Procedure visit Department of Urology in [place], [place] [address] [place] [address] Paula Hernandez M.D. [address] [place] [address] documented as of this encounter Visit Diagnoses Not on filedocumented in this encounter Care Teams Activities Assistant Relationship Specialty Start Date End Date Elsewhere, Pcp PCP - General Internal Medicine 08/13/23 documented as of this encounter
--- OUTSIDE RECORDS SUMMARY | 2023-10-14 09:19 | XMS_ITS | Encounter Summary ---
Author Organization [facility] Address [address] [place] [address] Care Team Providers Care Neon Tube Pumper Name Role Phone Elsewhere, Pcp Primary Care Provider Unavailabl e Reason for Visit * Reason Comments Urinary Problem Rapid Heart Rate Encounter Details Date Type Department Care Team (Latest Contact Info) Description 08/30/2023 7:35 PM CDT - 09/05/2023 4:09 PM CDT Hospital Encounter [facility], [facility], [facility] [employer] [facility], First Floor [address] [place] [address] Kirstin Hughes M.D. [address] [place] [phone] Mayur Alvarez M.D. [address] [place] [phone] Hematuria (Primary Dx); Tachycardia; Hematuria Gross Discharge Disposition: Home-Health Care Svc Social History Tobacco Use Types Packs/Day Years Used Date Smoking Tobacco: Never Smokeless Tobacco: Never [facility] Utilities Answer Date Recorded In [...] your living situation today? [facility] 09/05/2023 Sex and [...] PM CDT DISCHARGE SUMMARY BRIEF OVERVIEW Hospital: [facility] Discharge Provider: Mayur Alvarez M.D. Primary Team: [facility] [...] CYSTOGRAM Mayur Alvarez M.D.White, Lindsay A, M.D. [facility] ROMB OR DISCHARGE DISPOSITION Home-Health Care [facility] [6] ACTIVE ISSUES REQUIRING FOLLOW [...] CONSULT TO CARE MANAGEMENT IP CONSULT TO PAPER FEEDER WOUND CARE IP CONSULT TO HYPERBARIC MEDICINE CONDITION AT DISCHARGE improved Discharge instructions were provided to the patient and caregiver(s). documented in this encounter Discharge Instructions * Patient Instructions* Carmen Louis, R.N. - 08/31/2023 9:44 AM CDT The Senior LinkAge Line?? is a service of the [place] Board on Aging in partnership with [facility] Agencies on Aging. It is a free service of the [facility] that connects older [place]ans and their families with the help they need. Call the Senior LinkAge Line?? at: [phone] M-F, 8am-4:30pm to connect with specialists that are available to assist you with your specific needsor check out their website at [email or web address] * Attachments The following attachments cannot be sent through Care Everywhere. * Cefdinir (By mouth) ([place] Islander) documented in this encounter Medications at Time [...] questions or concerns. Pager during business hours: [phone] Pager after hours: [phone] * Jeffery Valdez M.D. - 09/04/2023 10:34 [...] rivaroxaban Held Home Meds: Plavix Consults: None Jfefery Valdez M.D. 09/04/2023 10:45 AM CDT Please page the Urology Chief Service with questions or concerns. Pager during business hours: [phone] Pager after hours: [phone] * Jeffery Valdez M.D. - 09/03/2023 4:10 [...] consider transitioning [facility] Summary: Diet: Regular Activity: [...] questions or concerns. Pager during business hours: [phone] Pager after hours: [phone] * Paula Hernandez M.D. - 09/02/2023 6:25 [...] questions or concerns. Pager during business hours: [phone] Pager after hours: [phone] * Michelle Willams R.N., C.W.C.N. - 09/01/2023 11:43 AM CDT [facility] Wound RN consulted to assess [...] Secondary Dressing Status Clean;Dry;Intact Changed by Wound field manager Ongoing management Nursing;Wound/display card writer Urine Assessment Urine Color Colorless Hematuria Scale [place]ide Urine Appearance Clear;Sediment Head to toe skin [...] update the patient. Son stated that a First Line Production Supervisor visited the home and will be trying to assist both and patient with cares/coordination. OBJECTIVE Patient is located on [facility] room 111. Referrals were sent to the following agencies: Home Medical Care - Admitted Since 08/30/2023 Service Provider Request Status Selected Services Address Phone Fax Patient Preferred [facility] [place] Pending - Request Sent N/A [address] [facility] [phone] -- [facility] Pending - Request Sent N/A [address] [facility] [address], [facility] [address] -- Home Health Care Pending - Request Sent N/A [address] [facility] [address] [address] -- [facility] Pending - Request Sent N/A [address] [facility] [phone] -- [facility] Pending - Request Sent N/A [address] [facility] [phone] -- [facility] Pending - Request Sent N/A [address] [facility] [address] [phone] -- [facility] Home Health Declined Facility Full N/A [address] [facility] [phone] -- ASSESSMENT / PLAN ASSESSMENT Rn Document Improvement Specialist attempted to contact patient on room phone but was unable to get through. Case Manageras able to reach his son who will update that patient that the preferred home health agency was unable to accept and that referrals would be sent to other home health agencies. Requested services arenursing for wound care and catheter and PT/OT. PLAN Rn Document Improvement Specialist will follow up with referrals. Case Manger [...] questions or concerns. Pager during business hours: [phone] Pager after hours: [phone] * Paula Hernandez M.D. - 08/31/2023 10:45 [...] risks associated with surgery and anesthesia including TX, stroke, and VTE were also discussed. Finally, [...] questions or concerns. Pager during business hours: [phone] Pager after hours: [phone] Associated attestation - Mayur Alvarez M.D. - 08/31/2023 12:14 PM CDT I agree with the Urology Chief Service plan for palliative cystoscopy under anesthesia, clot evacuation, proceed as indicated. We will plan for judicious irrigation given his recent bladder surgery and we will perform a cystogram at the end of the procedure. * Demarco Salazar, PharmJonahD., R.Ph., [facility] - 08/31/2023 7:19 AM CDT Images from [...] discontinuation of antibiotics. Pedrito Salazar Pharm.D., R.Ph., [facility] Admission Medication History Note Adherence issues: No [...] Complete Set By: Demarco Salazar Pharm.D., R.Ph., [facility] at 08/31/2023 7:22 AM Taking? Last [...] documented in this encounter H&P Notes * Kmii Vieira M.D., M.S. - 08/31/2023 12:26 AM CDT H&P HISTORY OF PRESENT ILLNESS Mr. Vega is an 83 y.o. male transferred to the [facility] ED for further management of gross [...] for CBI. He was then transferred to [facility] on 08/12; a CT cystogram was [...] was initiated on CBI and transferred to [facility] for further management. On my initial [...] for radiation proctitis SOCIAL HISTORY Lives in [place], [place] OBJECTIVE Vitals Blood pressure 134/84, pulse [...] & Screen Expiration 09/02/2023 23:59 Testing Location [facility] Imagin08/30/23 EXAM: US URINARY BLADDER COMPARISON: CT [...] hematuria, clot obstruction and was transferred to [facility] for further evaluation and management. Urinary bladder ultrasound showing 5 cm clot burden; catheter draining on fast-rate CBI after multiple rounds of hand irrigation. Plan - Continue CBI - Q2h hr hand irrigations - NPO overnight pending am re-evaluation - Hold Plavix, Xarelto for now The above was discussed with Drs. Venegas and Lefty, the chief urology residents utilization management um nurse. Please page chief Urology [place] [phone] [place] [phone] afterhours. documented in this encounter Procedure Notes [...] on androgen deprivation therapy. 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 No scuba diving experience. Electronic health [...] inpatient stay, would request transfer to [facility] prior to initiation of hyperbaric oxygen [...] Early Screen for Discharge Planning Referral Name: [facility] Referral Reason: Discharge Planning Primary Language: [place] Islander [employer] Used: No Person(s) present during interview: [...] Communication: Can write, Talks, Understands speaking, Understands [place] Islander, Reads Shopping: Needs assistance Medication Management: Independent Housekeeping: Needs assistance Meal Prep: Independent Assistive Devices: Walker - front wheeled, Eyeglasses, Hearing aid(s) Agency Name: [facility] Provided: Jail/PT/OT Transportation: Support from family Baseline Services/Resources Primary care clinic and provider: ELSEWHERE, PCP Additional Resources: N/A Anticipated Needs Functional Status: Housekeeping, Shopping, Transportation use (drive car, use taxi/bus), Mobility, Transfer to/from bed, chair, etc., Bathing Assistive Devices: Eyeglasses, Hearing aid(s), Walker - front wheeled Services/Resources: Home health Agency Name: [facility] Provided: Jail/PT/OT Anticipated Modifications to the Patient's Home: None Transportation Needs: Support from family Does the patient need discharge transport arranged?: No Anticipated Discharge Destination: Home-Health Care [facility] ASSESSMENT / PLAN Assessment: The waistline joiner overlock met with Kalen Vega to discuss his current hospitalization and home goingneeds. The patient was accompanied by son, Kar . The patient was a reliable historian. The role ofRN Rn Document Improvement Specialist was reviewed. The patient reviewed his prior level of care and support system. The patient receives support from his and children. The patient described his living environment as a home with bedroom and bathroom on same floor withstairs to enter with rails. Housekeeping, grocery shopping, meal prep, and other household responsibilities have previously been completed by patient and patient's son. waistline joiner overlock discussed the patient's potential needs at dismissal based on their home setting, previous needs and responsibilities, homebound status, and relevant assessments with the patient. The patient will be safe and supported to return home with [facility] or previous services noted above when [...] [facility] care. Patient stated that [employer] was supposed to be set- up at discharge after the last hospital stay but that the company never received orders to start care and that he was told by nursing that due to his PICC removal he would not need care. Rn Document Improvement Specialist will clarifywith home health team regarding if [...] chart and meeting with the patient, the waistline joiner overlock deemed the LACE+/readmission questions were appropriate. The [...] current readmission could have been prevented. The waistline joiner overlock will share this information with the care team. The patient reports understanding that he will dismiss from the hospital when medically stable. Thefollowing potential barriers to dismissal have been identified: Home Health Care Addendum 1230: Rn Document Improvement Specialist called [facility]. They received the referral but declined due to being at capacity. Plan: The patient agrees with the following plan. Patient's anticipated discharge disposition is: Home with Home Healthcare Referrals sent. Transportation upon dismissal will be provided by family--Kar . waistline joiner overlock recommended home health services. waistline joiner overlock provided information regarding the dismissal process and the Senior Linkage Line ([place] Board on Aging) handout. waistline joiner overlock placed or requested the following hospital-based consult orders and/or referrals: None. waistline joiner overlock will follow up with the patient to [...] with updates and/or transition plan to come. waistline joiner overlock encouraged the patient to reach out with [...] CDT Pre-op Diagnosis Hematuria Post-op Diagnosis Hematuria Tree Warden A kindergarten assistant actively participated and was necessary for [...] or filling defects. 5. Placement of [address] catheter with 20 cc in [...] The resectoscope was removed and a [address] catheter was placed with 20 [...] secondary to cystostomy closure presenting today from [place] with concerns for worsening hematuria. He was [...] 08/30/2023 8:48 AM CDT Pt transferred from [facility] via EMS, pt c/o blocked jon cath that started today. Pt had a right uretal stent exchange and an open bladder repair 08/15/23 and was discharged 08/25. Pt had a3 way jon placed at [facility], and transferred here because the clots returned. [...] RN, CPN, CCDS, CCS, CRC Clinical Documentation Warehouse Examiner Query created by: ELMER Barker, RN, CPN, [...] CDT Procedure visit Department of Urology in [place], [place] [address] [place] [address] Paula Hernandez M.D. [address] [place] [address] Pending Results Name Type Priority Associated Diagnoses [...] CDT Roxy Romero M.D. LAB BLOOD ADD-ON [facility] [address] [place] [address], [facility] DTL [facility] [address] [place] [address] * (ABNORMAL) Basic Metabolic Panel (09/05/2023 4:52 [...] De Paz M.D. LAB BLOOD ADD-ON [facility] [address] [place] [address], [facility] [address] [place] [address] * (ABNORMAL) Basic Metabolic Panel (09/04/2023 8:15 [...] CDT Jeffery Valdez M.D. LAB BLOOD ADD-ON [address] [address], [facility] [address] [place] [address] * (ABNORMAL) CBC without Differential (09/04/2023 8:15 [...] - 9.6 x10(9)/L 09/04/2023 9:[address] [facility] Blood (Blood, Venous) 09/04/2023 8:15 PM CDT 09/04/2023 8:52 PM CDT Jeffery Valdez M.D. LAB BLOOD ADD-ON [facility] [address] [place] [address], [facility] [address] [place] [address] * Transfuse Red Blood Cells : (09/04/2023 [...] 09/04/2023 11:46 AM CDT STRM Testing Location [place] DEFAULT 09/04/2023 11:21 AM CDT STRM Blood (Blood, Venous) 09/04/2023 10:59 AM CDT 09/04/2023 11:21 AM CDT Jeffery Valdez M.D. LAB BLOOD BANK TEST ORDERABLES [facility] [address] [place] [address], [facility] STRM [facility] [address] [place] [address] * Heparin Anti-Xa Assay (09/04/2023 7:34 AM [...] NON A DD-ON Performing Organization Address [facility] Co de Phone Number [facility] [address] [place] [address], [facility] [address] [place] [address] * (ABNORMAL) CBC without Differential (09/04/2023 7:34 [...] LAB BLOOD ADD-ON Performing Organization Address [facility]/ZIP Co de Phone Number [facility] [address] [place] [address], [facility] [address] [place] [address] * Heparin Anti-Xa Assay (09/04/2023 12:30 AM [...] NON A DD-ON Performing Organization Address [facility] Co de Phone Number [facility] [address] [place], [place] [phone] [place] [address] [facility] [address] [place] [address] * Bacterial Culture, Aerobic + Susceptibility, Urine (09/03/2023 10:50 AM CDT) [facility] Urine Culture No growth after 1 day of incubation. 09/04/2023 8:52 AM CDT DTL Urine (Urine, Indwelling Catheter) 09/03/2023 10:50 AM CDT 09/03/2023 11:53 AM CDT Comment:Specimen Source Site : Urine Jeffery Valdez M.D. LAB MICROBIOLOGY - G ENERAL ORDERABLES [facility] 200 [place] [address], [facility] [address] [place] [address] * (ABNORMAL) CBC without Differential (09/03/2023 3:29 AM CDT) [facility] Hemoglobin 8.0(L) 13.2 - 16.6 [...] [facility]/ZIP Co de Phone Number [facility] [address] [place], [place] [phone] [place] [address] [place] [address] * Heparin Anti-Xa Assay (09/03/2023 3:29 AM [...] [facility]/ZIP Co de Phone Number [facility] [address] [place] [address], [facility] [address] [place] [address] * Heparin Anti-Xa Assay (09/02/2023 2:57 AM [...] Alvarez M.D. LAB BLOOD NON A DD-ON [facility] [address] [place] [address], [facility] [address] [place] [address] * (ABNORMAL) CBC without Differential (09/01/2023 8:16 [...] LAB BLOOD ADD-ON Performing Organization Address [facility] Co de Phone Number [facility] [address] [place] [address], [facility] [address] [place] [address] * Heparin Anti-Xa Assay (09/01/2023 6:50 PM [...] NON A DD-ON Performing Organization Address [facility] Co de Phone Number [facility] [address] [place] [address], [facility] [address] [place] [address] * APTT (Activated Partial Thromboplastin Time) (09/01/2023 9:05 AM CDT) Activated Partial Thrombopl Time, P 28 25 - 37 sec 09/01/2023 9:35 AM CDT [facility] Blood (Blood, Venous) 09/01/2023 9:05 AM CDT 09/01/2023 9:21 AM CDT Paula Hernandez M.D. LAB BLOOD ADD-ON Performing Organization Address City/[facility] Co de Phone Number [facility] [address] [place] [address], [facility] STMA [facility] [address] [place] [address] * (ABNORMAL) Basic Metabolic Panel (08/31/2023 9:36 [...] CDT Paula Hernandez M.D. LAB BLOOD ADD-ON [facility] [address] [place] [address], [facility] DTL [facility] [address] [place] [address] * (ABNORMAL) CBC without Differential (08/31/2023 9:36 [...] CDT Paula Hernandez M.D. LAB BLOOD ADD-ON [facility] [address] [place] [address], [facility] [address] [address] * [place] Fluoro Less Than 1 Hour [...] * (ABNORMAL) Hemoglobin (08/31/2023 4:21 AM CDT) [facility] Hemoglobin 7.8(L) 13.2 - 16.6 g/dL 08/31/2023 4:47 AM CDT DTL Blood (Blood, Venous) 08/31/2023 4:21 AM CDT 08/31/2023 4:35 AM CDT Kimi Vieira M.D., M.S. LAB BLOO D ADD-ON [facility] [address] [facility] [address] [place] [address] * Type and Screen (with Reflex Antibody ID) (08/30/2023 9:50 PM CDT) [facility] ABORh O Pos Not applicable 08/30/2023 10:17 PM CDT STRM Antibody Screen Negative Negative 08/30/2023 10:31 PM CDT STRM Type & Screen Expiration 09/02/2023 23:59 08/30/2023 10:17 PM CDT STRM Testing Location [facility] DEFAULT 08/30/2023 9:58 PM CDT STRM Blood (Blood, Venous) 08/30/2023 9:50 PM CDT 08/30/2023 9:58 PM CDT Shannan Correa D.O., M.H.A. LAB BLOOD BANK TEST ORDERABLES [facility] [address] [place] [address], [facility] STRM [facility] [address] [place] [address] * Lactate (08/30/2023 9:50 PM CDT) [facility] Lactate, P 1.8 0.5 - 2.2 mmol/L 08/30/2023 10:09 PM CDT [facility] Blood (Blood, Venous) 08/30/2023 9:50 PM CDT 08/30/2023 9:55 PM CDT Shannan Correa D.O. M.H.A. LAB BLOOD NON ADD-ON [facility] [address] [place] [address], [facility] STMA [facility] [address] [place] [address] * (ABNORMAL) Basic Metabolic Panel (08/30/2023 9:49 [...] D.O. M.H.A. LAB BLOOD ADD- ON [facility] [address] [place] [address], [facility] STMA [facility] [address] [place] [address] * (ABNORMAL) CBC with Differential, Blood (08/30/2023 [...] Correa D.O., M.H.A. LAB BLOOD ADD- ON [facility] [address] [place] [address], [facility] STMA [facility] [address] [place] [address] [facility] [address] [place] [address] * DX Chest AP or PA and [...] MUSE QTC Interval 403 ms MUSE P Jewell 44 degrees MUSE R Jewell 9 degrees MUSE T Wave Jewell -76 degrees MUSE 08/30/2023 7:44 PM CDT [...] give total of 40 mEq Dissolve per photographic developer and printer recommendations. Do NOT chew or swallow tablet., [...] Sarah Morgan RJonahNJonah - Reason: See Provider Order)2323 (Unheld by provider - Provider: Jeffery Valdez [...] give total of 40 mEq Dissolve per photographic developer and printer recommendations. Do NOT chew or swallow tablet., [...] 0911 (Given - Provider: Vansesa Leo R.N.) sennosides-docusate sodium 8.6-50 mg per [...] intravenous, As needed, antiXa 0.1-0.19, Starting on [facility] [[email or web address]] 09/03/23 at 1608, Intensity type: Moderate, Anti-Xa < 0.1: Loading Dose (Units/kg): 60, Anti-Xa 0.1-0.19: Loading Dose (Units/kg): 30, Anti-Xa > 0.19: Loading Dose (Units/kg): 0 Or heparin (porcine) 1,000 unit/mL injection 5,500 Units (CANCELED) 5,500 Units (rounded from 5,544 Units = 60 Units/kg ? 92.4 kg), intravenous, As needed, antiXa less than 0.1, Starting on [facility] [[email or web address]] 09/03/23 at 1608, Intensity type: Moderate, Anti-Xa [...] 2256 documented in this encounter Care Teams Neon Tube Pumper Relationship Specialty Start Date End Date Elsewhere, Pcp PCP - General Internal Medicine 08/13/23 documented as of this encounter
--- OUTSIDE RECORDS SUMMARY | 2023-10-14 09:19 | XMS_ITS | Encounter Summary ---
Author Organization [facility] Address [address] [place] [address] Care Team Providers Care Space Technologist Name Role Phone Elsewhere, Pcp Primary Care Provider Unavailabl e Encounter Details Date Type Department Care Team (Late st Contact Info) Description 08/31/2023 12:34 PM CDT Anesthesia Event RST ROMB MAIN OR [address] [place] [address] [phone] Joe Stoll M.D. [address] [place] [phone] Benjamin Williamson APRN, WELL CLEANER [address] [place] [phone] Anesthesia Record Procedure Summary Procedure Name Responsible Anesthesiologist Anesthesia Start Time Anesthesia Stop Time CYSTOSCOPY EVACUATION CLOTS (Bladder) Jeo Stoll M.D. 08/31/23 1234 08/31/23 1420 Events [...] 1402 08/31/23 1243 by Benjamin Williamson APRN, WELL CLEANER 08/31/23 1402 by Benjamin Williamson APRN, WELL CLEANER Indwelling Urinary Catheter Placement Date: 08/31/23; Placement [...] Date Smoking Tobacco: Never Smokeless Tobacco: Never [facility] Utilities Answer Date Recorded In the past 12 months has [facility] [employer], or water [employer] threatened to shut off services in your [...] Notes * Anesthesia Postprocedure Evaluation - Joe tSoll M.D. - 08/31/2023 5:27 PM CDT Patient: Kalen Vega Procedure Summary Date: 08/31/23 Room / Location: [address] 01 530 / [facility] in [place], [place] Anesthesia Start: 1234 Anesthesia Stop: 1420 [...] Location: OR 108 [address] 01 530 / [facility] in [place], [place] Providers: Mayur Alvarez M.D. Pertinent components [...] patient / legal guardian, or through an department clinician; patient evaluated and approved for anesthesia / [...] CDT Procedure visit Department of Urology in [place], [place] [address] [place] [address] Paula Hernandez M.D. [address] [place] [address] documented as of this encounter Procedures Procedure [...] mg documented in this encounter Care Teams Space Technologist Relationship Specialty Start Date End Date Elsewhere, Pcp PCP - General Internal Medicine 08/13/23 documented as of this encounter
--- OUTSIDE RECORDS SUMMARY | 2023-10-14 09:19 | XMS_ITS | Encounter Summary ---
Author Organization [facility] Address [address] [place] [address] Care Team Providers Care Welder Fitter Apprentice Name Role Phone Elsewhere, Pcp Primary Care Provider Unavailabl e Encounter Details Date Type Department Care Team (Late st Contact Info) Description 08/31/2023 12:25 PM CDT Ancillary Procedure Department of General Surgery Social History Tobacco Use Types Packs/Day Years Used Date Smoking Tobacco: Never Smokeless Tobacco: Never [facility] Utilities Answer Date Recorded In the past 12 months has e electric, gas, oil, or water [employer] threatened to shut off services in your [...] a [facility] to live 08/13/2023 Sex and Gender Information Value Date Recorded Sex Assigned at Not on file Gender Identity Not on file Sexual Orientation Not on file documented as of this encounter Plan of Treatment Upcoming Encounters Date Type Department Care Team (Late st Contact Info) Description 10/14/2023 1:00 PM CDT Procedure visit Department of Urology in [place], [place] [address] [place] [address] Paula Hernandez M.D. [address] [place] [address] documented as of this encounter Procedures Procedure [...] on filedocumented in this encounter Care Teams Welder Fitter Apprentice Relationship Specialty Start Date End Date Elsewhere, Pcp PCP - General Internal Medicine 08/13/23 documented as of this encounter
--- OUTSIDE RECORDS SUMMARY | 2023-10-14 09:19 | XMS_ITS | Encounter Summary ---
Author Organization [facility] Address [address] [place] [address] Care Team Providers Care Bung Sewer Name Role Phone Elsewhere, Pcp Primary Care Provider Unavailabl e Reason for Visit * Reason Comments Urinary Problem Rapid Heart Rate Encounter Details Date Type Department Care Team (Late st Contact Info) Description 08/31/2023 12:36 PM CDT - 08/31/2023 2:31 PM CDT Surgery RST ROMB MAIN OR [address] [place] [address] Mayur Alvarez M.D. [address] [place] [address] CYSTOSCOPY EVACUATION CLOTS Social History Tobacco Use [...] your living situation today? [facility] 08/13/2023 Sex and [...] PM CDT DISCHARGE SUMMARY BRIEF OVERVIEW Hospital: [facility] Discharge Provider: Mayur Alvarez M.D. [...] CYSTOGRAM Mayur Alvarez M.D.White, Lindsay A, M.D. RUST ROMB OR DISCHARGE DISPOSITION Home-Health Care [facility] [6] ACTIVE ISSUES REQUIRING FOLLOW UP [...] CONSULT TO CARE MANAGEMENT IP CONSULT TO SMT MACHINE OPERATOR WOUND CARE IP CONSULT TO HYPERBARIC MEDICINE CONDITION AT DISCHARGE improved Discharge instructions were provided to the patient and caregiver(s). documented in this encounter Discharge Instructions * Patient Instructions* Carmen Louis, R.N. - 08/31/2023 9:44 AM CDT The Senior LinkAge Line?? is a service of the [place] Board on Aging in partnership with [place]'s Area Agencies on Aging. It is a free service of the [facility] that connects older [place] and their families with the help they need. Call the Senior LinkAge Line?? at: [phone] M-F, 8am-4:30pm to connect with specialists that are available to assist you with your specific needsor check out their website at https://[email or web address] [email or web address] * Attachments The following attachments cannot be sent through Care Everywhere. * Cefdinir (By mouth) (Luxembourgish) documented in this encounter Medications at Time [...] questions or concerns. Pager during business hours: [phone] Pager after hours: [phone] * Jeffery Valdez M.D. - 09/04/2023 10:34 [...] questions or concerns. Pager during business hours: [phone] Pager after hours: [phone] * Jeffery Valdez M.D. - 09/03/2023 4:10 [...] consider [facility]: Diet: Regular Activity: Ad [...] questions or concerns. Pager during business hours: [phone] Pager after hours: [phone] * Paula Hernandez M.D. - 09/02/2023 6:25 [...] questions or concerns. Pager during business hours: [phone] Pager after hours: [phone] * Michelle Willams, Terri., C.W.C.N. - 09/01/2023 11:43 AM CDT [facility] Wound RN consulted to assess Kalen [...] Secondary Dressing Status Clean;Dry;Intact Changed by Wound practicing urologist Ongoing management Nursing;Wound/hide inspector Urine Assessment Urine Color Colorless Hematuria Scale [place] Urine Appearance Clear;Sediment Head to toe skin [...] update the patient. Son stated that a Journal Clerk visited the home and will be trying to assist both and patient with cares/coordination. OBJECTIVE Patient is located on [facility] room 111. Referrals were sent to the following agencies: Home Medical Care - Admitted Since 08/30/2023 Service Provider Request Status Selected Services Address Phone Fax Patient Preferred [facility] [place] Pending - Request Sent N/A [address], [facility] [phone] -- [facility] - Home Care Pending - Request Sent N/A [address], [facility] [address] [phone] -- Home Health Care Pending - Request Sent N/A [address], [facility] [address] -- [facility] Pending - Request Sent N/A [address] [facility] [phone] -- [place] [facility] Pending - Request Sent N/A [address] [facility] [phone] -- [facility] Pending - Request Sent N/A [address] [facility] [address], [facility] [phone] -- [facility] Home Health Declined Facility Full N/A [address] [facility] [phone] -- ASSESSMENT / PLAN ASSESSMENT Marine Habitat Resource Specialist attempted to contact patient on room phone but was unable to get through. Case Manageras able to reach his son who will update that patient that the preferred home health agency was unable to accept and that referrals would be sent to other home health agencies. Requested services arenursing for wound care and catheter and PT/OT. PLAN Marine Habitat Resource Specialist will follow up with referrals. Case [...] questions or concerns. Pager during business hours: [phone] Pager after hours: [phone] * Paula Hernandez M.D. - 08/31/2023 10:45 [...] questions or concerns. Pager during business hours: [phone] Pager after hours: [phone] Associated attestation - Mayur Alvarez M.D. - 08/31/2023 12:14 PM CDT I agree with the Urology Chief Service plan for palliative cystoscopy under anesthesia, clot evacuation, proceed as indicated. We will plan for judicious irrigation given his recent bladder surgery and we will perform a cystogram at the end of the procedure. * Demarco Salazar PharmJonahD., R.Ph., [facility] - 08/31/2023 7:19 AM CDT Images from [...] discontinuation of antibiotics. Pedrito Salazar Pharm.D., R.Ph., [facility] Admission Medication History Note Adherence issues: No [...] Complete Set By: Demarco Salazar, Karyn, R.Ph., [facility] at 08/31/2023 7:22 AM Taking? Last Dose [...] an 83 y.o. male transferred to the [facility] ED for further management of gross hematuria. [...] for CBI. He was then transferred to [facility] on 08/12; a CT cystogram was performed [...] was initiated on CBI and transferred to [facility] for further management. On my initial evaluation [...] for radiation proctitis SOCIAL HISTORY Lives in [place], [place] OBJECTIVE Vitals Blood pressure 134/84, pulse [...] & Screen Expiration 09/02/2023 23:59 Testing Location [facility] Imagin08/30/23 EXAM: US URINARY BLADDER COMPARISON: CT [...] hematuria, clot obstruction and was transferred to [facility] for further evaluation and management. Urinary bladder ultrasound showing 5 cm clot burden; catheter draining on fast-rate CBI after multiple rounds of hand irrigation. Plan - Continue CBI - Q2h hr hand irrigations - NPO overnight pending am re-evaluation - Hold Plavix, Xarelto for now The above was discussed with Drs. Venegas and Lefty, the chief urology residents blender conveyor operator. Please page chief Urology [place] [phone] [place] [phone] afterhours. documented in this encounter Procedure Notes [...] on androgen deprivation therapy. 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 [...] 11 Referral Reason: Discharge Planning Primary Language: Luxembourgish Coal Weigher Services Used: No Person(s) present during interview: Person(s) Present During Interview: patient and child Kar History of Present Illness #1 Hematuria Social History Support System: spouse, children, and home care staff Primary Caregiver: self and family Finance/Insurance Primary insurance: MEDICARE A AND B Secondary insurance: [employer]A benefits: No Advance Directives Legal Decision Maker: Self Advance Directives: N/A Advance Directives Status: N/A OBJECTIVE Baseline Functional Status Baseline Activities of Daily Living Mobility: Requires aide of device Dressing: Independent Feeding: Independent Bathing: Independent Grooming: Independent Toileting: Independent Behavior: Appropriate, Pleasant, Calm, Cooperative, Oriented Communication: Can write, Talks, Understands speaking, Understands Luxembourgish, Reads Shopping: Needs assistance Medication Management: Independent Housekeeping: Needs assistance Meal Prep: Independent Assistive Devices: Walker - front wheeled, Eyeglasses, Hearing aid(s) Agency Name: [facility] Provided: Retirement/PT/OT Transportation: Support from family Baseline Services/Resources Primary care clinic and provider: ELSEWHERE, PCP Additional Resources: N/A Anticipated Needs Functional Status: Housekeeping, Shopping, Transportation use (drive car, use taxi/bus), Mobility, Transfer to/from bed, chair, etc., Bathing Assistive Devices: Eyeglasses, Hearing aid(s), Walker - front wheeled Services/Resources: Home health Agency Name: [facility] Provided: Retirement/PT/OT Anticipated Modifications to the Patient's Home: None Transportation Needs: Support from family Does the patient need discharge transport arranged?: No Anticipated Discharge Destination: Home-Health Care [facility] ASSESSMENT / PLAN Assessment: The air pollution analyst met with Kalen Vega to discuss his current hospitalization and home goingneeds. The patient was accompanied by son, Kar . The patient was a reliable historian. The role ofRN Marine Habitat Resource Specialist was reviewed. The patient reviewed his prior level of care and support system. The patient receives support from his and children. The patient described his living environment as a home with bedroom and bathroom on same floor withstairs to enter with rails. Housekeeping, grocery shopping, meal prep, and other household responsibilities have previously been completed by patient and patient's son. air pollution analyst discussed the patient's potential needs at dismissal based on their home setting, previous needs and responsibilities, homebound status, and relevant assessments with the patient. The patient will be safe and supported to return home with [facility] or previous services noted above [...] PICC removal he would not need care. Marine Habitat Resource Specialist will clarifywith home health team regarding [...] chart and meeting with the patient, the air pollution analyst deemed the LACE+/readmission questions were appropriate. The [...] current readmission could have been prevented. The air pollution analyst will share this information with the care team. The patient reports understanding that he will dismiss from the hospital when medically stable. Thefollowing potential barriers to dismissal have been identified: Home Health Care Addendum 1230: Marine Habitat Resource Special[facility] received the [facility] but declined due to being at capacity. Plan: The patient agrees with the following plan. Patient's anticipated discharge disposition is: Home with Home Healthcare Referrals sent. Transportation upon dismissal will be provided by family--Kar . air pollution analyst recommended home health services. air pollution analyst provided information regarding the dismissal process and the Senior Linkage Line ([place]) handout. air pollution analyst placed or requested the following hospital-based consult orders and/or referrals: None. air pollution analyst will follow up with the patient to [...] with updates and/or transition plan to come. 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 5. Placement of [address] catheter with 20 cc in [...] The resectoscope was removed and a [address] catheter was placed with 20 [...] secondary to cystostomy closure presenting today from [place] with concerns for worsening hematuria. He was [...] 08/30/2023 8:48 AM CDT Pt transferred from [facility] via EMS, pt c/o blocked jon cath that started today. Pt had a right uretal stent exchange and an open bladder repair 08/15/23 and was discharged 08/25. Pt had a3 way jon placed at [place], and transferred here because the clots returned. [...] RN, CPN, CCDS, CCS, CRC Clinical Documentation Executive Vice President Business Development Query created by: ELMER Barker, RN, CPN, [...] CDT Procedure visit Department of Urology in [place], [place] [address] [place] [address] Paula Hernandez M.D. [address] [place] [address] Pending Results Name Type Priority Associated Diagnoses [...] CDT Roxy Romero M.D. LAB BLOOD ADD-ON [facility] [address] [place] [address], [facility] [place]note 3] [address] [place] [address] * (ABNORMAL) Basic Metabolic Panel (09/05/2023 4:52 [...] De Paz M.D. LAB BLOOD ADD-ON [address] [address], [facility] [address] [place] [address] * (ABNORMAL) Basic Metabolic Panel (09/04/2023 8:15 [...] Jeffery Valdez M.D. LAB BLOOD ADD-ON [address] [address], [address] [address] * (ABNORMAL) CBC without Differential (09/04/2023 8:15 [...] - 317 x10(9)/L 09/04/2023 9:19 PM CDT [facility] Leukocytes 7.5 3.4 - 9.6 x10(9)/L 09/04/2023 9:19 PM CDT [facility] Blood (Blood, Venous) 09/04/2023 8:15 PM CDT 09/04/2023 8:52 PM CDT Jeffery Valdez M.D. LAB BLOOD ADD-ON [facility] [address] [place] [address], [facility] [address] [place] [address] * Transfuse Red Blood Cells : (09/04/2023 3:30 PM CDT) Jeffery Valdez M.D. BLOOD TRANSFUSION OR DERABLES * Transfuse Red Blood Cells : , 1 Units (09/04/2023 3:30 PM CDT) Jeffery Valdez M.D. BLOOD TRANSFUSION OR DERABLES * Type and Screen (with Reflex Antibody ID) (09/04/2023 10:59 AM CDT) [facility] O Pos Not applicable 09/04/2023 11:46 AM CDT STRM Antibody Screen Negative Negative 09/04/2023 11:59 AM CDT STRM Type & Screen Expiration 09/07/2023 23:59 09/04/2023 11:46 AM CDT STRM Testing Location [facility] DEFAULT 09/04/2023 11:21 AM CDT STR Blood (Blood, Venous) 09/04/2023 10:59 AM CDT 09/04/2023 11:21 AM CDT Jeffery Valdez M.D. LAB BLOOD BANK TEST ORDERABLES [facility] [address] [place] [address], [place] [facility] [address] [place] [address] * Heparin Anti-Xa Assay (09/04/2023 7:34 AM CDT) Pathologist [facility] Heparin Anti-Xa, P 0.12 IU/mL 2023 8:14 [...] Alvarez M.D. LAB BLOOD NON A DD-ON [place] [address] [place] [address], [facility] [place] [address] * (ABNORMAL) CBC without Differential (09/04/2023 7:34 AM CDT) Pathologist [facility] Hemoglobin 7.7(L) 13.2 - 16.6 g/dL 09/04/2023 [...] M.D. LAB BLOOD ADD-ON Performing Organization Address City/[facility]/ZIP Co de Phone Number [facility] [address] [place] [address] * Heparin Anti-Xa Assay (09/04/2023 12:30 AM CDT) Pathologist [facility] Heparin Anti-Xa, P 0.27 IU/mL 2023 1:21 [...] BLOOD NON A DD-ON Performing Organization Address [facility] Co de Phone Number [facility] [address] [place] [address], [facility] [address] [place] [address] * Bacterial Culture, Aerobic + Susceptibility, Urine (09/03/2023 10:50 AM CDT) Pathologist [facility] Urine Culture No growth after 1 day of incubation. 09/04/2023 8:52 AM CDT DTL Urine (Urine, Indwelling Catheter) 09/03/2023 10:50 AM CDT 09/03/2023 11:53 AM CDT Comment:Specimen Source Site : Urine Jeffery Valdez M.D. LAB MICROBIOLOGY - G ENERAL ORDERABLES Performing Organization Address City/[facility] Co de Phone Number [facility] [address] DTL [facility] [address] [place] [address] * (ABNORMAL) CBC without Differential (09/03/2023 3:29 AM CDT) Pathologist [facility] Hemoglobin 8.0(L) 13.2 - 16.6 g/dL 09/03/2023 [...] ADD-ON [facility] [address] [place], [place] [address] [place] [address] DTL [facility] [address] [place] [address] * Heparin Anti-Xa Assay (09/03/2023 3:29 AM [...] Alvarez M.D. LAB BLOOD NON A DD-ON [facility] [address] [place] [address], [facility]-[address] [address] * Heparin Anti-Xa Assay (09/02/2023 2:57 AM CDT) [facility] Heparin Anti-Xa, P 0.24 IU/mL 2023 [...] BLOOD NON A DD-ON Performing Organization Address [facility] Co de Phone Number [facility] [address] [place], [place] [address] [place] [address] DTL [facility] [address] [place] [address] * (ABNORMAL) CBC without Differential (09/01/2023 8:16 PM CDT) [facility] Hemoglobin 8.5(L) 13.2 - 16.6 g/dL [...] M.D. LAB BLOOD ADD-ON Performing Organization Address City/[facility]/ZIP Co de Phone Number [facility] [address] [place] [address], [facility] DTL [facility] [address] [place] [address] * Heparin Anti-Xa Assay (09/01/2023 6:50 PM [...] BLOOD NON A DD-ON Performing Organization Address [facility]/ZIP Co de Phone Number [facility] [address] [place] [address], [facility] DTL [facility] [address] [place] [address] * APTT (Activated Partial Thromboplastin Time) (09/01/2023 9:05 AM CDT) Pathologist [facility] Activated Partial Thrombopl Time, P 28 25 - 37 sec 09/01/2023 9:[address] [facility] Blood (Blood, Venous) 09/01/2023 9:05 AM CDT 09/01/2023 9:21 AM CDT Paula Hernandez M.D. LAB BLOOD ADD-ON Performing Organization Address City/[facility]/ZIP Co de Phone Number [facility] [address] [place] [address], [facility] STMA [facility] [address] [place] [address] * (ABNORMAL) Basic Metabolic Panel (08/31/2023 9:36 [...] CDT Paula Hernandez M.D. LAB BLOOD ADD-ON [facility] [address] [place] [address], [facility] [place][note 3] [address] [place] [address] * (ABNORMAL) CBC without Differential (08/31/2023 9:36 [...] M.D. LAB BLOOD ADD-ON Performing Organization Address City/[facility]/ZIP Co de Phone Number [facility] [address] [place] [address], [facility] DTL [facility] [address] [place] [address] * [place] Fluoro Less Than 1 Hour [...] LAB BLOO D ADD-ON Performing Organization Address City/[facility]/ZIP Co de Phone Number [facility] [address] [place] [address], [facility] DTL [facility] [address] [place] [address] * Type and Screen (with Reflex Antibody ID) (08/30/2023 9:50 PM CDT) Pathologist [facility] ABORh O Pos Not applicable 08/30/2023 10:17 PM CDT STRM Antibody Screen Negative Negative 08/30/2023 10:31 PM CDT STRM Type & Screen Expiration 09/02/2023 23:59 08/30/2023 10:17 PM CDT STRM Testing Location [facility] DEFAULT 08/30/2023 9:58 PM CDT STRM Blood (Blood, Venous) 08/30/2023 9:50 PM CDT 08/30/2023 9:58 PM CDT Shannan Correa D.O., M.H.A. LAB BLOOD BANK TEST ORDERABLES Performing Organization Address [facility] Co de Phone Number [facility] [address] [place] [address], [facility] STRM [facility] [address] [place] [address] * Lactate (08/30/2023 9:50 PM CDT) Lactate, P 1.8 0.5 - 2.2 mmol/L 08/30/2023 10:09 PM CDT STMA Blood (Blood, Venous) 08/30/2023 9:50 PM CDT 08/30/2023 9:55 PM CDT Shannan Correa D.O., M.H.A. LAB BLOOD NON ADD-ON [facility] [address] [place] [address], [facility] [address] [place] [address] * (ABNORMAL) Basic Metabolic Panel (08/30/2023 9:49 PM CDT) Pathologist [facility] Potassium, P 3.6 3.6 - 5.2 mmol/L [...] ADD- ON [facility] [address] [place] [address], [facility] STMA [facility]-[address] [address] * (ABNORMAL) CBC with Differential, Blood (08/30/2023 9:49 PM CDT) [facility] Signature Hemoglobin 8.5(L) 13.2 - 16.6 [...] Correa D.O., M.H.A. LAB BLOOD ADD- ON [facility] [address] [place] [address], [place] [facility] [address] [place] [address] [facility] [address] [place] [address] * DX Chest AP or PA and [...] CDT) Ventricular Rate ECG/Min 145 BPM MUSE ME Interval 136 ms MUSE QRSD Interval 64 ms MUSE QT Interval 260 ms MUSE QTC Interval 403 ms MUSE P [place] 44 degrees MUSE R [place] 9 degrees MUSE T Wave [place] -76 degrees MUSE 08/30/2023 7:44 PM CDT [...] Sarah Morgan R.N. - Reason: See Provider Order)[id number] (Unheld by provider - Provider: Jeffery Valdez [...] give total of 40 mEq Dissolve per regional telecommunications specialist recommendations. Do NOT chew or swallow tablet., [...] 2256 documented in this encounter Care Teams Bung Sewer Relationship Specialty Start Date End Date Elsewhere, Pcp PCP - General Internal Medicine 08/13/23 documented as of this encounter
--- OUTSIDE RECORDS SUMMARY | 2023-10-14 09:19 | XMS_ITS | Encounter Summary ---
Author Organization [facility] Address [address] [place] [address] Care Team Providers Care Pediatric Clinical Nurse Specialist Name Role Phone Elsewhere, Pcp Primary Care Provider Unavailabl e Encounter Details Date Type Department Care Team (Late st Contact Info) Description 09/09/2023 Documentation Department of Urology in [place], [place] [address] [place] [address] Ko Victoria M.D. [address] [place] [address] Social History Tobacco Use Types Packs/Day Years Used Date Smoking Tobacco: Never Smokeless Tobacco: Never [facility] Utilities Answer Date Recorded In the past [address] [facility] electric, gas, oil, or water [employer] threatened to shut off services in your [...] your living situation today? I have a [facility] place to live 09/09/2023 Sex and [...] of Urology in [place], [place] [address] [place] [address] Paula Hernandez M.D. [address] [place] [address] documented as of this encounter Visit Diagnoses Not on filedocumented in this encounter Care Teams Pediatric Clinical Nurse Specialist Relationship Specialty Start Date End Date Elsewhere, Pcp PCP - General Internal Medicine 08/13/23 documented as of this encounter
--- OUTSIDE RECORDS SUMMARY | 2023-10-14 09:19 | XMS_ITS | Encounter Summary ---
Author Organization [facility] Address [address] [place] [address] Care Team Providers Care Long Wall Shear Operator Name Role Phone Elsewhere, Pcp Primary Care Provider Unavailabl e Encounter Details Date Type Department Care Team (Late st Contact Info) Description 09/01/2023 10:05 AM CDT Ancillary Procedure Department of Nursing Social History Tobacco Use Types Packs/Day Years Used Date Smoking Tobacco: Never Smokeless Tobacco: Never [facility] Utilities Answer Date Recorded In the past 12 months has e electric, gas, oil, or water [employer] threatened to shut off services in your [...] your living situation today? I have a [facility] place to live 08/13/2023 Sex and Gender Information Value Date Recorded Sex Assigned at Not on file Gender Identity Not on file Sexual Orientation Not on file documented as of this encounter Plan of Treatment Upcoming Encounters Date Type Department Care Team (Late st Contact Info) Description 10/14/2023 1:00 PM CDT Procedure visit Department of Urology in [place], [place] [address] [place] [address] Paula Hernandez M.D. [address] [place] [address] documented as of this encounter Procedures Procedure [...] on filedocumented in this encounter Care Teams Long Wall Shear Operator Relationship Specialty Start Date End Date Elsewhere, Pcp PCP - General Internal Medicine 08/13/23 documented as of this encounter
--- OUTSIDE RECORDS SUMMARY | 2023-10-14 09:19 | XMS_ITS | Encounter Summary ---
Author Organization [facility] Address [address] [place] [address] Care Team Providers Care Sales Facilitator Name Role Phone Elsewhere, Pcp Primary Care Provider Unavailabl e Encounter Details Date Type Department Care Team (Late st Contact Info) Description 09/09/2023 12:10 PM CDT Ancillary Procedure Department of Nursing Social History Tobacco Use Types Packs/Day Years Used Date Smoking Tobacco: Never Smokeless Tobacco: Never [facility] Utilities Answer Date Recorded In the past 12 months has e electric, gas, oil, or water [employer] threatened to shut off services in your [...] a [facility] place [facility] live 09/09/2023 Sex and Gender Information Value Date Recorded Sex Assigned at Not on file Gender Identity Not on file Sexual Orientation Not on file documented as of this encounter Plan of Treatment Upcoming Encounters Date Type Department Care Team (Late st Contact Info) Description 10/14/2023 1:00 PM CDT Procedure visit Department of Urology in [place], [place] [address] [place] [address] Paula Hernandez M.D. [address] [place] [address] documented as of this encounter Procedures Procedure [...] filedocumented in this encounter Care Teams Sales Facilitator Relationship Specialty Start Date End Date Elsewhere, Pcp PCP - General Internal Medicine 08/13/23 documented as of this encounter
--- OUTSIDE RECORDS SUMMARY | 2023-10-14 09:19 | XMS_ITS | Encounter Summary ---
Author Organization [facility] Address [address] [place] [address] Care Team Providers Care Tribal Judge Name Role Phone Elsewhere, Pcp Primary Care Provider Unavailabl e Encounter Details Date Type Department Care Team (Late st Contact Info) Description 09/06/2023 Clinical Communication [facility] [address] [place] [address] Yasmine Loco Social History Tobacco Use Types Packs/Day Years Used Date Smoking Tobacco: Never Smokeless Tobacco: Never [facility] Utilities Answer Date Recorded In the past 12 months has e [employer], gas, oil, or water [employer] threatened to shut off services in [...] [facility] 09/09/2023 Sex and Gender Information Value Date Recorded Sex Assigned at Not on file Gender Identity Not on file Sexual Orientation Not on file documented as of this encounter Plan of Treatment Upcoming Encounters Date Type Department Care Team (Late st Contact Info) Description 10/14/2023 1:00 PM CDT Procedure visit Department of Urology in [place], [place] [address] [place] [address] Paula Hernandez M.D. [address] [place] [address] documented as of this encounter Visit Diagnoses Diagnosis Hematuria Gross- Primary documented in this encounter Care Teams Tribal Judge Relationship Specialty Start Date End Date Elsewhere, Pcp PCP - General Internal Medicine 08/13/23 documented as of this encounter
--- OUTSIDE RECORDS SUMMARY | 2023-10-14 09:19 | XMS_ITS | Encounter Summary ---
Author Organization [facility] Address [address] [place] [address] Care Team Providers Care Outdoor Illuminating Engineer Name Role Phone Elsewhere, Pcp Primary Care Provider Unavailabl e Encounter Details Date Type Department Care Team (Late st Contact Info) Description 09/06/2023 Orders Only Section of Hyperbaric Medicine in [place], [place] [address] [place] [address] Kira Ferraro, ARUN, C.N.P., M.S.N. [address] [place] [address] Social History Tobacco Use Types Packs/Day Years [...] a [facility] live 09/09/2023 Sex and Gender Information Value Date Recorded Sex Assigned at Not on file Gender Identity Not on file Sexual Orientation Not on file documented as of this encounter Plan of Treatment Upcoming Encounters Date Type Department Care Team (Late st Contact Info) Description 10/14/2023 1:00 PM CDT Procedure visit Department of Urology in [place], [place] [address] [place] [address] Paula Hernandez M.D. 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
--- OUTSIDE RECORDS SUMMARY | 2023-10-14 09:20 | XMS_ITS | Encounter Summary ---
Author Organization [facility] Address [address] [place] [address] Care Team Providers Care Renewable Energy Consultant Name Role Phone Elsewhere, Pcp Primary Care Provider Unavailabl e Encounter Details Date Type Department Care Team (Late st Contact Info) Description 08/30/2023 Documentation Department of Urology in [place], [place] [address] [place] [address] Corin Ring M.D. [address] [place] [address] Social History Tobacco Use Types Packs/Day Years Used Date Smoking Tobacco: Never Smokeless Tobacco: Never [facility] Utilities Answer Date Recorded In the past 12 months has [facility] [employer], gas, oil, or water [employer] threatened to shut off services in your [...] living situation today? I have a [facility] place to live 08/13/2023 Sex and Gender Information Value Date Recorded Sex Assigned at Not on file Gender Identity Not on file Sexual Orientation Not on file documented as of this encounter Plan of Treatment Upcoming Encounters Date Type Department Care Team (Late st Contact Info) Description 10/14/2023 1:00 PM CDT Procedure visit Department of Urology in [place], [place] [address] [place] [address] Paula Hernandez M.D. [address] [place] [address] documented as of this encounter Visit Diagnoses Not on filedocumented in this encounter Care Teams Renewable Energy Consultant Relationship Specialty Start Date End Date Elsewhere, Pcp PCP - General Internal Medicine 08/13/23 documented as of this encounter
--- OUTSIDE RECORDS SUMMARY | 2023-10-14 09:20 | XMS_ITS | Encounter Summary ---
Author Organization [facility] Address [address] [place] [address] Care Team Providers Care Print Binding Worker Name Role Phone Elsewhere, Pcp Primary Care Provider Unavailabl e Encounter Details Date Type Department Care Team (Latest Contact Info) Description 08/30/2023 Intake [facility] Social History Tobacco Use Types Packs/Day Years Used Date Smoking Tobacco: Never Smokeless Tobacco: Never [facility] Utilities Answer Date Recorded In [...] CDT Procedure visit Department of Urology in [place], [place] [address] [place] [address] Paula Hernandez M.D. 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
--- OUTSIDE RECORDS SUMMARY | 2023-10-14 09:20 | XMS_ITS | Encounter Summary ---
Author Organization [facility] Address [address] [place] [address] Care Team Providers Care Tow Motor Operator Name Role Phone Elsewhere, Pcp Primary Care Provider Unavailabl e Encounter Details Date Type Department Care Team (Late st Contact Info) Description 08/26/2023 Orders Only Department of Urology in [place], [place] [address] [place] [address] Paula Hernandez M.D. [address] [place] [address] Social History Tobacco Use Types Packs/Day Years Used Date Smoking Tobacco: Never Smokeless Tobacco: Never [facility] Utilities Answer Date Recorded In the past [address] [facility] electric, gas, oil, or water [employer] threatened to shut off services in your [...] CDT Procedure visit Department of Urology in [place], [place] [address] [place] [address] Paula Hernandez M.D. [address] [place] [address] documented as of this encounter Visit Diagnoses Not on filedocumented in this encounter Care Teams Tow Motor Operator Relationship Specialty Start Date End Date Elsewhere, Pcp PCP - General Internal Medicine 08/13/23 documented as of this encounter
--- OUTSIDE RECORDS SUMMARY | 2023-10-14 09:21 | XMS_ITS | Encounter Summary ---
Author Organization [facility] Address [address] [place] [address] Care Team Providers Care Chief Service Observer Name Role Phone Elsewhere, Pcp Primary Care [...] has e electric, gas, oil, or water [employer] threatened to shut off services in your [...] living situation today? I have a [facility] place to live 08/13/2023 Sex and Gender Information Value Date Recorded Sex Assigned at Not on file Gender Identity Not on file Sexual Orientation Not on file documented as of this encounter Plan of Treatment Upcoming Encounters Date Type Department Care Team (Late st Contact Info) Description 10/14/2023 1:00 PM CDT Procedure visit Department of Urology in [place], [place] [address] [place] [address] Paula Hernandez M.D. [address] [place] [address] documented as of this encounter Procedures Procedure [...] on filedocumented in this encounter Care Teams Chief Service Observer Relationship Specialty Start Date End Date Elsewhere, Pcp PCP - General Internal Medicine 08/13/23 documented as of this encounter
--- OUTSIDE RECORDS SUMMARY | 2023-10-14 09:21 | XMS_ITS | Encounter Summary ---
Author Organization [facility] Address [address] [place] [address] Care Team Providers Care Machining Associate Name Role Phone Elsewhere, Pcp Primary Care Provider Unavailabl e Encounter Details Date Type Department Care Team (Latest Contact Info) Description 08/13/2023 3:42 PM CDT - 08/26/2023 4:11 PM CDT Hospital Encounter [facility], [facility], Sixth Floor [address] [place] [address] Darnell Garcia M.D. [address] [place] [address] Boubacar Brock M.D. [address] [place] [address] Decline Functional Status [R53.81] (Primary Dx); Hematuria [R31.9] Discharge Disposition: Home or Self Care Social History Tobacco Use Types Packs/Day Years Used Date Smoking Tobacco: Never Smokeless Tobacco: Never [facility] Utilities Answer Date Recorded In [...] AM CDT DISCHARGE SUMMARY BRIEF OVERVIEW Hospital: [facility] Discharge Provider: Boubacar Brock M.D. Primary Team: [facility] Urology Surgery - Chief Helga - Bob [...] M.D.Wen, Lexiaochuan, M.D.Premo, Hayley, M.D.Botkin, Hannah, M.D. [facility] ROMB OR DISCHARGE DISPOSITION Home or Self Care [1] ACTIVE ISSUES REQUIRING FOLLOW UP OUTPATIENT FOLLOW UP Scheduled Appointments 08/26/2023 1:00 PM KESHIA VERAS [facility] Radiology For appointment details refer [...] he felt completely obstructed and presented to [place] [facility]. [place] Course Attempted Tabares insertion but bladder irrigation was unsuccessful on multiple attempts. Hung 1U pRBC's. Given some volume and transferred to [facility] ICU ICU Course Urology consulted and were [...] CONSULT TO NUTRITION SUPPORT IP CONSULT TO CRAFT SUPERINTENDENT WOUND CARE CONDITION AT DISCHARGE stable Discharge [...] he felt completely obstructed and presented to [place] [facility]. [place] Course Attempted Tabares insertion but bladder irrigation was unsuccessful on multiple attempts. Hung 1U pRBC's. Given some volume and transferred to [facility] ICU ICU Course Urology consulted and were [...] PM CDT You were discharged from the [facility] Urology Surgery - Chief A - [...] Progress Notes * Emeterio Buchanan P.T., D.P.T., [facility] - 08/26/2023 4:27 PM CDT 08/26/23 0039 Reason Therapy Missed Reason Therapy Missed Receiving other care Attempted to see patient twice today. On 1st attempt patient was receiving blood transfusion and RNwas working on completing cares with him. On 2nd attempt patient was with another provider. * Chary Diamond M.A., O.T., [facility] - 08/26/2023 10:21 AM CDT Occupational Therapy [facility] Inpatient Treatment SUBJECTIVE Patient's Name: Kalen Vega Referring/Attending Provider: Boubacar Brock M.D. Reason for Referral: Occupational Therapy Evaluation and Treatment History of Present Illness: Kalen Vega is a 83 y.o. male who was admitted to [facility] in [place] on 08/13/2023 for Hematuria [R31.9]. Precautions Other Precautions: Abdominal, fall precautions, monitor tachycardia and hypertension Pain Assessment: Pain not reported during session. Subjective Comments: Agreeable to therapy session. Team Communication: The patient's status was discussed and coordination of care occurred with RN, Family/Caregiver, nurse tech Family/Caregiver Present: son and epjjkiwv-hv-pel OBJECTIVE Vital Signs: Vitals not formally assessed during session. No concerns during chart review and the patient had nosigns or symptoms consistent with vital changes during therapy session. Outcome Measures: [facility] Inpatient Short Form: Putting on and [...] at or below 17 Clinicians answer the [facility] Inpatient Short Form based on observed [...] through pant leg first. - Adaptive Equipment: Project Associate TOILETING - Assist Level: Maximal Assist - [...] (Edge of bed) - Assist Level: Modified [place] - Equipment: bed rail - Therapist Delivery: assessed, instructed, assisted - Adaptive Equipment: leg informatics spec trialed ; however, patient able to move [...] extremity (stiff knee) first. Recommended adaptive equipment: Project Associate. Toileting - Patient instructed on accurate positioning [...] maximal exertion Handouts provided: Bathroom Safety Equipment [id number], Techniques to Help You Save Energy [id number] Patient was left in bedside chair with [...] health care OBJECTIVE Patient is admitted in [place] 6C -room 121 ASSESSMENT / PLAN HEALTH TECHNICIAN HEARINGvolunteer manager met with patient and son Kar to inform them of home health care acceptance for PT/OT. Patient's son Kar and druwdlhh-bs-kff will provide transportation at the time of discharge. PLAN Patient to discharge home with home health care. Home Medical Care - Admitted Since 08/13/2023 Service Provider Selected Services Address Phone Fax Patient Preferred [facility] [address] [facility] [address] -- Hazardous Substances Scientist: Ghazal NURSING: - Complete documentation in the Discharge Navigator including Nursing Report Info and Facility/NextLevel of Care Info - Call report and arrange for the patient's first visit - Send After Visit Summary and required packet of dismissal information with patient, including advance directive. PRIMARY SERVICE: - Please provide a non-[place] home health order for: physical therapy and [...] be provided by family--patient's son Kar and oelyxvdq-uo-tsg. 3. surveillance officer recommended reaching out to family, friends, and neighbors for assistance. 4. surveillance officer provided information regarding the dismissal process. Damaris [...] Reviewed with patient #1 Hematuria Please page [facility] ([phone]) or [facility] ([phone]) Nutrition Support Service pager with questions. * Emeterio Buchanan P.T., D.P.T., [facility] - 08/25/2023 9:35 AM CDT Physical Therapy Inpatient Treatment SUBJECTIVE Patient's Name: Kalen Vega Referring/Attending Provider: Boubacar Brock M.D. Reason for Referral: Physical Therapy Evaluate and Treat History of Present Illness: Kalen Vega is a 83 y.o. male who was admitted to [facility] in [place] on 08/13/2023 for Hematuria [R31.9] Precautions Other [...] fit with adult there which they usually [place] with a difference educated fully know who [...] - 08/25/2023 9:18 AM CDT Occupational Therapy [facility] Inpatient Treatment SUBJECTIVE Patient's Name: Kalen Vega Referring/Attending Provider: Boubacar Brock M.D. Reason for Referral: Occupational Therapy Evaluation and Treatment History of Present Illness: Kalen Vega is a 83 y.o. male who was admitted to [facility] in [place] on 08/13/2023 for Hematuria [R31.9]. Precautions Other Precautions: Abdominal, fall precautions, monitor tachycardia and hypertension Pain Assessment: Pain not reported during session. Subjective Comments: Agreeable to therapy session. Team Communication: The patient's status was discussed and coordination of care occurred with RN, PT OBJECTIVE Vital Signs: Vitals monitored throughout session; within normal ranges. Outcome Measures: [facility] Inpatient Short Form: Putting on and [...] at or below 17 Clinicians answer the [facility] Inpatient Short Form based on observed [...] including figure four technique. Recommended adaptive equipment: Project Associate and Sock Aid. Toileting - Patient instructed [...] and modification tools as needed including leg informatics spec and/or bed adjustments. Bathroom DME: - Educated [...] in place draining clear yellow urine I/O ([id number]): Fifty-five cc serosanguineous from the drain 1 [...] 2.5 mg BID eliquis initiated 08/15 per [facility] med curbside recs --transition [...] have him follow up with his local medical lab technician Comorbidities: --history of DVT status post [...] discussed with Dr. Venegas, chief urology resident station detective. Pager during business hours: [phone] Pager after hours: [phone] * Emeterio Buchanan P.T., D.P.T., [facility] - 08/24/2023 10:46 AM CDT Physical Therapy Inpatient Treatment SUBJECTIVE Patient's Name: Kalen Vega Referring/Attending Provider: Boubacar Brock M.D. Reason for Referral: Physical Therapy Evaluate and Treat History of Present Illness: Kalen Vega is a 83 y.o. male who was admitted to [facility] in [place] on 08/13/2023 for Hematuria [R31.9] Precautions Other [...] baseline. PT Goal #2: Patient will perform kbp-je-xrspj transfer with modified independence and least restrictive [...] Total Kcal/day: 1370 based on 84 % [place] Non-standard additives: K 80 mEq Phos 30 [...] magnesium, phosphorus tomorrow. #1 Hematuria Please page [facility] ([phone]) or [facility] ([phone]) Nutrition Support Service pager with questions. * [...] catheter in place draining light smith I/O ([id number]): Forty-two cc serosanguineous from the drain 2.2 [...] 2.5 mg BID eliquis initiated 08/15 per [facility] med curbside recs --transition [...] have him follow up with his local medical lab technician Comorbidities: --history of DVT status post [...] discussed with Dr. Venegas, chief urology resident station detective. Pager during business hours: [phone] Pager after hours: [phone] * Deanne Mike L.G.S.W., M.S.W. - 08/23/2023 11:25 AM CDT SUBJECTIVE Social Work spoke with [facility]. They cannot provide mcc at this time. They can provide OT/PT [...] anticipated discharge date of 08/24/23-08/26/23. Referrals sent: [facility] [place] - [facility] (out of service area) [facility] ASSESSMENT / PLAN ASSESSMENT Patient has robust family support including a son living with him. PLAN Patient desires home health care through [facility]. Social Work will continue to follow to provide support. Social Work will continue to assist with discharge needs. Shorty Sun, M.S.W. 08/23/23 * Jazmine Benítez R.N., C.W.C.N. - 08/23/2023 11:10 AM CDT [facility] W[facility] RN consulted to assess Kalen [...] stent and hematuria who is transferred from [place] ED with 3 days of hematuria and [...] None Unable to Measure Y *Wound Bed Closed;Likely;Red Tissue Exposed None Odor None *Exudate Amount [...] 30 minutes > 30 minutes Ongoing management Nursing;Wound/human resources operations director Partial head to toe skin assessment completed [...] AM CDT * Emeterio Buchanan, P.T., D.P.T., [facility] - 08/23/2023 11:02 AM CDT Physical Therapy Inpatient Treatment SUBJECTIVE Patient's Name: Kalen Vega Referring/Attending Provider: Boubacar Brock M.D. Reason for Referral: Physical Therapy Evaluate and Treat History of Present Illness: Kalen Vega is a 83 y.o. male who was admitted to [facility] in [place] on 08/13/2023 for Hematuria [R31.9] Precautions Other [...] and O2 flow: Room air Outcome Measures: [facility] Inpatient Short Form: [facility] [...] baseline. PT Goal #2: Patient will perform yzx-qd-zlurd transfer with modified independence and least restrictive [...] D.P.T., G[facility] * Demarco Salazar, PharmJonahD., R.Ph., [facility] - 08/23/2023 10:19 AM CDT Pharmacist Progress [...] Total Kcal/day: 1370 based on 84 % Garcia-[place] Non-standard additives: MAX chloride Thiamine 100 mg [...] magnesium, phosphorus tomorrow. #1 Hematuria Please page [facility] ([phone]) or [facility] ([phone]) Nutrition Support Service pager with questions. * Ivy Hernandez O.T. - 08/23/2023 8:30 AM CDT Occupational Therapy [facility] Inpatient Treatment SUBJECTIVE Patient's Name: Kalen Vega Referring/Attending Provider: oBubacar Brock M.D. Reason for Referral: Occupational Therapy Evaluation and Treatment History of Present Illness: Kalen Vega is a 83 y.o. male who was admitted to [facility] in [place] on 08/13/2023 for Hematuria [R31.9]. Precautions Other Precautions: Abdominal, fall precautions, monitor tachycardia and hypertension Pain Assessment: Pain not reported during session. Subjective Comments: Agreeable to therapy session. Team Communication: The patient's status was discussed and coordination of care occurred with RN, PT OBJECTIVE Vital Signs: Vitals monitored throughout session; within normal ranges. Outcome Measures: [facility] Inpatient Short Form: Putting on and [...] at or below 17 Clinicians answer the [facility] Inpatient Short Form based on observed [...] catheter in place draining clear yellow I/O ([id number]): 73 cc serosanguineous from the drain Seven [...] 2.5 mg BID eliquis initiated 08/15 per [facility] med curbside recs --transition [...] have him follow up with his local medical lab technician Comorbidities: --history of DVT status post IVC filter, home Xarelto (holding since 08/11) -CAD status post cardiac stents (Plavix held since 08/11) -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 [facility] Summary: Diet: NPO, TPN Activity: Ad [...] discussed with Dr. Venegas, chief urology resident station detective. Pager during business hours: [phone] Pager after hours: [phone] * Chary Diamond M.A., O.T., BCP - [...] just began receiving [facility] patient would like referral sent there. Social Work sent referral. OBJECTIVE Patient is anticipated to remain at [place] for 3-5 days. Referrals sent: [facility] - [facility] Health ASSESSMENT / PLAN ASSESSMENT Patient has robust family support including a son living with him. PLAN Patient desires home health care through [facility]. Social Work will continue to follow [...] 83 y.o. male who was admitted to [facility] in [place] on 08/13/2023 for Hematuria [R31.9] Precautions Other [...] 3-5 steps with a railing?: A Lot [facility] Basic Mobility (V.2) Raw Score: 17 [facility] Basic Mobility (V.2) Standardized Score: 39.67 Interpretation: Based on scoring guidelines using the raw score value: Those going to home had an average score at or above 18 Those going to facility had an average score at or below 17 Clinicians answer the [facility] Inpatient Short Form based on observed [...] baseline. PT Goal #2: Patient will perform fhz-zs-ueejl transfer with modified independence and least restrictive [...] Total Kcal/day: 1370 based on 84 % [place] Non-standard additives: MAX chloride Thiamine 100 mg [...] tonight. Pedrito Salazar Pharm.D., R.Ph., BCPS * Paual Hernandez M.D. - 08/22/2023 6:06 AM CDT [...] place draining light smith colored urine I/O ([id number]): CBI on slow drip 75 cc serosanguineous [...] 2.5 mg BID eliquis initiated 08/15 per [facility] med curbside recs --transition [...] have him follow up with his local medical lab technician Comorbidities: --history of DVT status post [...] discussed with Dr. Venegas, chief urology resident station detective. Pager during business hours: [phone] Pager after hours: [phone] * Qamar Jim, Pharm.DJonah, R.Ph. - 08/21/2023 [...] place draining clear smith colored urine I/O ([id number]): 1800 cc urine output 75 cc serosanguineous [...] have him follow up with his local medical lab technician Comorbidities: --history of DVT status post [...] discussed with Dr. Venegas, chief urology resident station detective. Pager during business hours: [phone] Pager after hours: [phone] * Lizette Harvey M.D. - 08/20/2023 8:08 [...] draining clear thin merlot colored urine I/O ([id number]): 240 cc p.o. intake 760 cc urine [...] 2.5 mg BID eliquis initiated 08/15 per [facility] med curbside recs --transition [...] have him follow up with his local medical lab technician Comorbidities: --history of DVT status post [...] questions or concerns. Pager during business hours: [phone] Pager after hours: [phone] * Qamar Jim, PharmJonahDJonah, R.Ph. - 08/20/2023 [...] 83 y.o. male who was admitted to [facility] in [place] on 08/13/2023 for Hematuria [R31.9]. Precautions Other Precautions: Abdominal, fall precautions, monitor tachycardia and hypertension Pain Assessment: Pain not reported during session. Subjective Comments: Patient greeted in chair and agreeable to therapy session. Team Communication: The patient's status was discussed and coordination of care occurred with RN OBJECTIVE Vital Signs: Vitals monitored throughout session; within normal ranges. Outcome Measures: [facility] Inpatient Short Form: Putting on and [...] at or below 17 Clinicians answer the [facility] Inpatient Short Form based on observed [...] about patient's nutritional care please contact pager [phone] on weekdays or [phone] on weekends/holidays. NUTRITION ASSESSMENT: Mr. Vega is [...] care everywhere) ESTIMATED NEEDS: Total Calorie Needs: 3634-3615 calories/day Method to Estimate Energy Needs: kcal/kg [...] 83 y.o. male who was admitted to [facility] in [place] on 08/13/2023 for Hematuria [R31.9] Precautions Other [...] mmHg O2: 96% Room air Outcome Measures: [facility] Inpatient Short Form: [facility] [...] Ongoing PT Goal #2: Patient will perform ztj-eo-pvoek transfer with modified independence and least restrictive [...] in place draining clear pink urine I/O ([id number]): 370 p.o. intake 1 L urine output [...] 2.5 mg BID eliquis initiated 08/15 per [facility] med curbside recs --transition [...] have him follow up with his local medical lab technician Comorbidities: --history of DVT status post [...] questions or concerns. Pager during business hours: [phone] Pager after hours: [phone] * Lisa Seaman, O.T., [facility] - 08/18/2023 11:15 AM CDT Occupational Therapy [facility] [place] [facility] Inpatient Treatment SUBJECTIVE Patient's Name: Kalen Vega Referring/Attending Provider: Boubacar Brock M.D. Reason for Referral: Occupational Therapy Evaluation and Treatment History of Present Illness: Kalen Vega is a 83 y.o. male who was admitted to [facility] in [place] on 08/13/2023 for Hematuria [R31.9]. Precautions Other [...] doffing over it last. Recommended adaptive equipment: Project Associate and Sock Aid. Patient was left in bedside chair, with nursing/FIRE CAPTAIN MARINE at end of session with call light [...] 83 y.o. male who was admitted to [facility] in [place] on 08/13/2023 for Hematuria [R31.9] Precautions Other [...] 3-5 steps with a railing?: A Little [facility] Basic Mobility (V.2) Raw Score: 18 [facility] Basic Mobility (V.2) Standardized Score: 41.05 Interpretation: Based on scoring guidelines using the raw score value: Those going to home had an average score at or above 18 Those going to facility had an average score at or below 17 Clinicians answer the [facility] Inpatient Short Form based on observed [...] following coordination of care occurred with the sales and marketing executive/Caregiver Present: No Patient was left in bedside [...] Progressing PT Goal #2: Patient will perform lao-mh-ecspn transfer with modified independence and least restrictive [...] in place draining clear pink urine I/O ([id number]): 1.2 L p.o. intake 1 L urine [...] diet later today follow up vascular medicine [facility] Summary: Diet: currently limited clears Activity: Ad kong DVT PPX: heparin drip GI PPX: Pantoprazole Bowel Regimen:N/A IVF: none Abx/Microbiology: Ceftriaxone Pain Control: Tylenol, oxycodone 08/18. Scheduled trospium Home Meds Resumed: Metoprolol, tamsulosin, rosuvastatin Held Home Meds: None Consults: None Paula Hernandez M.D. 08/18/2023 6:02 AM CDT Please page the Urology Chief Service with questions or concerns. Pager during business hours: [phone] Pager after hours: [phone] * Tayler Greenwood M.D., M.Ed. - 08/17/2023 [...] the patient follow up with his primary medical lab technician at discharge we will which we [...] Lactated Ringer's * Lisa Seaman, O.T., [facility] - 08/17/2023 10:47 AM CDT Occupational Therapy [facility] [place] [facility] Inpatient Treatment SUBJECTIVE Patient's Name: Kalen Vega Referring/Attending Provider: Boubacar Brock M.D. Reason for Referral: Occupational Therapy Evaluation and Treatment History of Present Illness: Kalen Vega is a 83 y.o. male who was admitted to [facility] in [place] on 08/13/2023 for Hematuria [R31.9]. Precautions Other [...] at or below 17 Clinicians answer the [facility] Inpatient Short Form based on observed [...] in place draining clear pink urine I/O ([id number]): NG tube 200 cc Two hundred sixty-five [...] questions or concerns. Pager during business hours: [phone] Pager after hours: [phone] * Audi De Luna P.T., D.P.T. - [...] in place draining clear pink urine I/O ([id number]): NG tube 200 cc Two hundred sixty-five [...] will discuss with Cardiology need for both [facility] Summary: Diet: NPO Activity: Ad kong DVT PPX: Ashley heparin GI PPX: Pantoprazole Bowel Regimen:N/A IVF: LR 75 Abx/Microbiology: Ceftriaxone Pain Control: Tylenol, oxycodone 08/18. Scheduled trospium Home Meds Resumed: Metoprolol, tamsulosin, rosuvastatin Held Home Meds: None Consults: None Signed by: Paula Hernandez M.D. 08/16/2023 6:02 AM CDT Please page the Urology Chief Service with questions or concerns. Pager during business hours: [phone] Pager after hours: [phone] * Paula Hernandez M.D. - 08/15/2023 9:09 AM CDT PROGRESS NOTE: No events. AFVSS. Pain controlled. No flatus. No further emesis overnight. Abdomen more distended than yesterday but remained soft, tender to deep palpation only, no rebound. Twenty-four Tanzanian Alcock three-way catheter remains off CBI, draining [...] risks associated with surgery and anesthesia including [place], stroke, and VTE were also discussed. Finally, [...] above was discussed with Dr. Brock, urology surgical consultant on-call who is in agreement with [...] Family to bring his home enzalutamide from [place] Irvin Franco Pharm.D., R.Ph. * Jakob De Paz M.D. - 08/14/2023 11:34 AM CDT PROGRESS NOTE: No events. AFVSS. Pain controlled. No flatus. Nauseous and had 2 episodes of emesis. Abdomen more distended than yesterday but remained soft, tender to deep palpation only, no rebound. Twenty-four Tanzanian Alcock three-way catheter remains off CBI, draining [...] JJ stent, last exchanged 07/21/2023 Mr. Kalen Veag is an pleasant 83-year-old gentleman with a [...] above was discussed with Dr. Brock, urology surgical consultant on-call who is in agreement with [...] Patient discussed with Dr. Sylvester. Page [id number] Carlos Alberto Henson M.D. PGY-1 CCM 3 * Ethel ySlvester M.D., M.P.H. - 08/14/2023 5:39 AM CDT [...] who have asked we place a 24 Tanzanian 3-way urinary catheter pending evaluation. We will [...] him to present to local hospital in [place]. OSH Course: His hemoglobin was in the [...] Insecurity: No Food Insecurity (02/16/2022) [facility] Food Insecurity Worried About Running Out of Food in the Last Year: 1 Transportation Needs: No Transportation Needs (02/16/2022) Received from [facility], [facility] Transportation Needs Lack of Transportation (Medical): 1 Housing Stability: Low Risk (02/16/2022) Received from [facility], [facility] Housing Stability Unable to Pay [...] Dr. Sylvester and Dr. Rodriguez. Page [id number] Carlos Alberto Henson M.D. PGY-1 CCM 3 [...] As expected PRIMARY PROCEDURALIST FAY Cerna MD [id number] ASSISTANTS none COMPLICATIONS None. DRAINS None. IMPLANTS [...] peripheral vein targets. Ultrasound used for assessment: TaxiBeat Fit Provider contacted (include name): Uro Surg [...] 14 -- AST U/L 25 -- Radiology: @[id number]@ Swallow Assessment: No data to display ASSESSMENT / PLAN #1 Hematuria ASSESSMENT Currently we are asked to visit with Mr. Vega for consideration of parenteral nutrition. Nutrition Needs: Height: 180 cm Admission Weight: 91.2 kg (08/13/2023) Current Weight: 90.2 kg BMI (Calculated): 27.8 kg/m?? Total Calorie Needs: 7418-3377 calories/day Method to Estimate Energy Needs: Garcia-[place] ( ) Weight Used for Equation Calculations: [...] on electrolytes Please call NSS pager at [phone] at [facility] or [phone] at [facility] with any additional questions. * [...] STENT EXCHANGE; Surgeon: Boubacar Brock M.D.; Location: [facility] ROMB OR FAMILY HISTORY No family [...] values in this interval not displayed. Radiology: @[id number]@ Swallow Assessment: No data to display ASSESSMENT / PLAN #1 Hematuria ASSESSMENT Currently we are asked to visit with Mr. Vega for consideration of parenteral nutrition. Nutrition Needs: Height: 180 cm Admission Weight: 91.2 kg (08/13/2023) Current Weight: 90.2 kg BMI (Calculated): 27.8 kg/m?? Total Calorie Needs: 1414-2970 calories/day Method to Estimate Energy Needs: kcal/kg [...] on electrolytes Please call NSS pager at [phone] at [facility] or [phone] at [facility] with any additional questions. BILLING/CODING [...] stent along with other stents and apparently medical lab technician in the past I recommended indefinite [...] 20 mL/hr, intravenous, Continuous, Frieda Garner APRN, TOUCH UP PAINTER, Last Rate: 20 mL/hr at 08/15/23 1459, [...] but he can discuss this with his medical lab technician at home. We need to balance transfusion needs for continued bleedingand risk of recurrent [place] if not on Plavix-coronary stents were 6 [...] 83 y.o. male who was admitted to [facility] in [place] on 08/13/2023 for Hematuria [R31.9]. Relevant Medical History: Kalen Vega is a 83 y.o. 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 [...] heels well perfused and intact. Outcome Measures: -[facility] Inpatient Short Form: -[facility] [...] following coordination of care occurred with the sales and marketing executive/Caregiver Present: SonFavio Patient was left in bedside [...] 83 y.o. male who was admitted to [facility] in [place] on 08/13/2023 for Hematuria with cystotomy and [...] Min assist for mobility. Required assist for [id number]-[id number] for force generation and is generally standby [...] Ongoing PT Goal #2: Patient will perform unj-vb-esipi transfer with modified independence and least restrictive [...] 83 y.o. male who was admitted to [facility] in [place] on 08/13/2023 for Hematuria [R31.9]. Relevant Medical [...] with RN, PT Family/Caregiver Present: Son and [id number]. Home Living and Equipment: Lives with: Spouse/Significant [...] walker, Single point cane Adaptive Equipment Owned: Project Associate, Long Handled Shoe Horn Other DME Owned: Regular flat bed Prior Level of Function and Mobility: Basic Activities of Daily Living: Independent Instrumental Activities of Daily Living: Required Assistance: Laundry son assists with laundry and cooking Functional Mobility: Independent Driving: Yes Occupational Role: Retired Leisure Interests: watch movies, plays [employer] train, meets friends for breakfast. Patient/Caregiver Goals: [...] at or below 17 Clinicians answer the [facility] Inpatient Short Form based on observed [...] all are a great support. 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 Patient expressed understanding and was agreeable [...] in conversation with his family when social science manager entered the room. He was engaged [...] locally at approximately 3:00 a.m. a 22 Tanzanian three-way catheter was placed and CBI wasinitiated. Unfortunately he clotted off the catheter multiple times despite manual irrigations, started to develop hypotension and tachycardia [facility] He relays the [...] non-distended, non-peritonitic Extremities: No edema : 22 Tanzanian three-way Tabares catheter draining a minimal amount [...] urinary retention Given his non draining 22 Tanzanian three-way catheter the Urology techs and I subsequently exchanged this for a 24 Tanzanian three-way Alcock in the usual sterile fashion. [...] to follow [place] [phone] with questions or concerns Sixto Cain M.D. [...] peripheral vein targets. Ultrasound used for assessment: TaxiBeat Fit Provider contacted (include name): Uro Surg [...] Patient Transfer Note Patient transferred to: [facility] Room: [facility] Accompanied by: JAMEL Garcia Report called? YES [...] signs? YES * Sixto Teague R.R.TJonah, L.R.T., FELT CUTTING MACHINE OPERATOR-[facility] - 08/14/2023 7:00 AM CDT Patient [...] the last 24hours. Sixto Teague R.R.T., L.R.TJonah, FELT CUTTING MACHINE OPERATOR-[facility] 08/14/23 7:00 AM CDT Electronically signed by Sixto Teague R.R.Cooper, L.R.T., FELT CUTTING MACHINE OPERATOR-[facility] at 08/14/2023 7:02 AM CDT * [...] Bladder Spontaneous Post-op Diagnosis Rupture Bladder Spontaneous Train Director A assistant womens volleyball coach actively participated and was necessary for one [...] the supine flexed position. His existing 24 Tanzanian three-way Tabares catheter was noted to be [...] additional tissue for additional coverage. A 24 Tanzanian three-way catheter was placed with 15 cc in the balloon. This irrigated to light clear pink. A 15 Tanzanian YARELI drain wasplaced into the pelvis exiting left lower quadrant. The fascia was closed with interrupted and [id number] 0 PDS. Fat was approximated using 3-0 [...] RN, CPN, CCDS, CCS, CRC Clinical Documentation Tool And Die Maker/Designer Query created by: ELMER Barker, RN, CPN, [...] stent and hematuria who is transferred from [place] ED with 3 days of hematuria & [...] RN, CPN, CCDS, CCS, CRC Clinical Documentation Tool And Die Maker/Designer Query created by: ELMER Barker, RN, CPN, [...] he felt completely obstructed and presented to [place] [facility]. [place] Course Attempted Tabares insertion but bladder irrigation was unsuccessful on multiple attempts. Hung 1U pRBC's. Given some volume and transferred to [facility] ICU ICU Course Urology consulted and were [...] CDT Procedure visit Department of Urology in [place], [place] [address] [place] [address] Paula Hernandez M.D. [address] [place] [address] Pending Results Name Type Priority Associated Diagnoses [...] 08/26/2023 7:16 AM CDT STRM Testing Location [place] DEFAULT 08/26/2023 6:57 AM CDT STRM Blood (Blood, Venous) 08/26/2023 6:50 AM CDT 08/26/2023 6:57 AM CDT Paula Hernandez M.D. LAB BLOOD BANK TEST ORDERABLES Performing Organization Address [facility] Co de Phone Number [facility] [address] [place] [address], [facility] STRM [facility] [address] [place] [address] * (ABNORMAL) CBC without Differential (08/26/2023 3:20 [...] CDT Corin Ring M.D. LAB BLOOD ADD-ON [facility] [address] [place] [address], [facility] DTL [facility] [address] [place] [address] * Magnesium (08/26/2023 3:20 AM CDT) Magnesium, S 2.1 1.7 - 2.3 mg/dL 08/26/2023 4:04 AM CDT DTL Blood (Blood, Venous) 08/26/2023 3:20 AM CDT 08/26/2023 3:50 AM CDT Boubacar Brock M.D. LAB BLOOD ADD-ON [facility] [address] [place] [address], [facility] DTL [facility] [address] [place] [address] * (ABNORMAL) Renal Function Panel (08/26/2023 3:20 AM CDT) Pathologist [facility] Potassium, S 4.4 3.6 - [...] Address City/[facility]/ZIP Co de Phone Number [facility] [address] [place] [address], [facility] [place] [address] [place] [address] * Heparin Anti-Xa Assay (08/26/2023 3:20 AM CDT) Pathologist [facility] Heparin Anti-Xa, P 0.26 IU/mL [...] Hoyt M.D. LAB BLOOD NON ADD -ON [facility] [address] [place] [address], [facility] [place] [address] [place] [address] * (ABNORMAL) CBC without Differential (08/25/2023 3:24 [...] M.D. LAB BLOOD ADD-ON Performing Organization Address City/State/[facility] Co de Phone Number [facility] [place] [address], [facility] [place] [address] [place] [address] * (ABNORMAL) Renal Function Panel (08/25/2023 3:24 [...] Address City/[facility]/ZIP Co de Phone Number [facility] [address] [facility] [place] [address] [place] [address] * Magnesium (08/25/2023 3:24 AM CDT) Pathologist [facility] Magnesium, S 2.2 1.7 - 2.3 mg/dL 08/25/2023 4:36 AM CDT DTL Blood (Blood, Venous) 08/25/2023 3:24 AM CDT 08/25/2023 4:19 AM CDT Boubacar Brock M.D. LAB BLOOD ADD-ON Performing Organization Address City/[facility]/ZIP Co de Phone Number [facility] [address] [facility] [place] [address] [place] [address] * Heparin Anti-Xa Assay (08/25/2023 3:24 AM [...] Boubacar Brock M.D. LAB BLOOD NON ADD-ON [id number] [place] [address] [place] [address] * (ABNORMAL) CBC without Differential (08/24/2023 5:28 AM CDT) [facility] Hemoglobin 8.1(L) 13.2 - 16.6 g/dL 08/24/2023 [...] Address City/[facility]/ZIP Co de Phone Number [facility] [address] [place] [address], [facility] [address] [place] [address] * Magnesium (08/24/2023 5:28 AM CDT) Magnesium, S 2.3 1.7 - 2.3 mg/dL 08/24/2023 6:19 AM CDT DTL Blood (Blood, Venous) 08/24/2023 5:28 AM CDT 08/24/2023 6:00 AM CDT Boubacar Brock M.D. LAB BLOOD ADD-ON Performing Organization Address [facility] Co de Phone Number [facility] [address] [place] [address], [facility] [address] [place] [address] * (ABNORMAL) Renal Function Panel (08/24/2023 5:28 [...] CDT Boubacar Brock M.D. LAB BLOOD ADD-ON [facility] [address] [place] [address], [facility] [place] [address] [place] [address] * Heparin Anti-Xa Assay (08/24/2023 5:28 AM CDT) Pathologist [facility] Heparin Anti-Xa, P 0.33 IU/mL [...] Boubacar Brock M.D. LAB BLOOD NON ADD-ON [facility] [address] [place] [address], [facility] [address] [place] [address] * (ABNORMAL) Potassium (08/23/2023 9:58 PM CDT) [facility] Potassium, S 3.5(L) 3.6 - 5.2 mmol/L 08/23/2023 10:45 PM CDT DTL Blood (Blood, Venous) 08/23/2023 9:58 PM CDT 08/23/2023 10:30 PM CDT Boubacar Brock M.D. LAB BLOOD ADD-ON Performing Organization Address City/[facility]/ZIP Co de Phone Number [facility] [address] [place] [address], [facility] [address] [place] [address] * (ABNORMAL) Phosphorus Inorganic (08/23/2023 9:58 PM CDT) [facility] Phosphorus (Inorganic), S 2.1(L) 2.5 - 4.5 mg/dL 08/23/2023 10:45 PM CDT DT Blood (Blood, Venous) 08/23/2023 9:58 PM CDT 08/23/2023 10:30 PM CDT Paula Hernandez M.D. LAB BLOOD ADD-ON [facility] [address] [place] [address], [facility] [address] [place] [address] * Heparin Anti-Xa Assay (08/23/2023 11:37 AM CDT) [facility] Heparin Anti-Xa, P 0.51 IU/mL 2023 12:42 [...] Boubacar Brock M.D. LAB BLOOD NON ADD-ON [address] [address], [facility] [place] [place] [address] * (ABNORMAL) CBC without Differential (08/23/2023 3:42 AM CDT) [facility] Hemoglobin 8.3(L) 13.2 - 16.6 g/dL 08/23/2023 [...] Address City/[facility]/ZIP Co de Phone Number [facility] [address] [place], [place] [address] [place] [address] [address] [place] [address] * Triglycerides (08/23/2023 3:42 AM CDT) Triglycerides [...] BLOOD ADD-ON Performing Organization Address [facility] Co de Phone Number [facility] [address] [place], [place] [address] [place] [address] [address] [place] [address] * Magnesium (08/23/2023 3:42 AM CDT) Magnesium, S 2.2 1.7 - 2.3 mg/dL 08/23/2023 4:50 AM CDT DTL Blood (Blood, Venous) 08/23/2023 3:42 AM CDT 08/23/2023 4:19 AM CDT Boubacar Brock M.D. LAB BLOOD ADD-ON Performing Organization Address City/[facility]/ZIP Co de Phone Number [facility] [address] [place] [address], [facility] DTL [facility] [address] [place] [address] * (ABNORMAL) Renal Function Panel (08/23/2023 3:42 [...] Brock M.D. LAB BLOOD ADD-[place] [address] * Heparin Anti-Xa Assay (08/23/2023 3:41 AM CDT) Pathologist [facility] [...] Boubacar Brock M.D. LAB [place] [address] * Glucose, POCT (08/22/2023 11:38 PM CDT) [facility] Glucose, POCT, B 117 70 - 140 mg/dL 08/23/2023 1:06 AM CDT PCLX Site Capillary 08/23/2023 1:06 AM CDT PCLX Last Intake NPO 08/23/2023 1:06 AM CDT PCLX Blood 08/22/2023 11:3 8 PM CDT 08/23/2023 1:06 AM CDT Unknown Provider LAB POCT ORDERABLES- MANUAL POC [facility] [address] [place] [address], [facility] PCLX [facility] POC [address] [place] [address] * Heparin Anti-Xa Assay (08/22/2023 10:14 PM [...] Boubacar Brock M.D. LAB BLOOD NON ADD-ON [facility] [address] [place] [address], [facility] [place] [address] [place] [address] * CT Abdomen Pelvis without IV Contrast [...] Boubacar Brock M.D. [place] [address], [facility] [place] [address] [place] [address] * Creatinine, Body Fluid (08/22/2023 3:30 PM CDT) Pathologist [facility] Creatinine, BF 1.2 See Comment [...] transport rates. All other fluids refer to [email or web address].com for further interpretive information. This test has been modified from the line assembler's instructions. Its performance characteristics were determined by [facility] in a manner consistent with CLIA requirements. This test has not been cleared or approved by the U.S. Food and Drug Administration. Fluid Type, Creatinine Fluid, Abdomen 08/22/2023 3:52 PM CDT DTL Fluid (Abdomen) 08/22/2023 3 :30 PM CDT 08/22/2023 6:36 PM CDT Corin Ring M.D. LAB BODY FLUIDS AND STOOLS ORDERABLES [facility] [address] [place] [address], [facility] [place] [address] [place] [address] * Transfuse Red Blood Cells : (08/22/2023 [...] of a right IJ vein single-lumen 4 Tanzanian tunneled PowerPICC ready for immediate use. NR [...] advanced into the IVC and a 4 Tanzanian dilator advanced over the wire and attached to a one-way stopcock. A suitable exit site in the right anterior chest was anesthetized and a small incision made. A 4 Tanzanian single-lumen PowerPICC was then tunneled from the [...] Wireadvanced into the IVC and a 4 Tanzanian dilator advanced over the wire andattached to a one-way stopcock. A suitable exit site in the right anteriorchest was anesthetized and a small incision made. A 4 Tanzanian single-lumen PowerPICC was then tunneled fromthe skin [...] of a right IJ vein single-lumen 4 Tanzanian tunneled PowerPICCready for immediate use. NR Kimi [...] Address City/[facility]/ZIP Co de Phone Number [facility] [address] [place], [place] [phone] [place] [address] [facility] [address] [place] [address] * Type and Screen (with Reflex Antibody ID) (08/22/2023 2:55 AM CDT) Pathologist [facility] ABORh O Pos Not applicable 08/22/2023 3:25 AM CDT STRM Antibody Screen Negative Negative 08/22/2023 3:38 AM CDT STRM Type & Screen Expiration 08/25/2023 23:59 08/22/2023 3:25 AM CDT STRM Testing Location [place] DEFAULT 08/22/2023 3:07 AM CDT STRM Blood (Blood, Venous) 08/22/2023 2:55 AM CDT 08/22/2023 3:07 AM CDT Latisha Whitehead M.D. LAB BLOOD BANK T EST ORDERABLES Performing Organization Address City/[facility]/ZIP Co de Phone Number [facility] [address] [place] [address], [facility] [place] [address] * (ABNORMAL) Comprehensive Metabolic Panel (08/22/2023 2:40 [...] Address City/[facility]/ZIP Co de Phone Number [facility] [address] [place] [address], [facility] [address] [place] [address] * Heparin Anti-Xa Assay (08/22/2023 2:40 AM CDT) Pathologist [facility] Heparin Anti-Xa, P 0.47 IU/mL [...] AD D-ON Performing Organization Address [facility]/ZIP Co de Phone Number [facility] [address] [place] [address], [facility] [address] [place] [address] * (ABNORMAL) APTT (Activated Partial Thromboplastin Time) (08/22/2023 2:40 AM CDT) Pathologist [facility] Activated Partial Thrombopl Time, P 64(H) 25 - 37 sec 08/22/2023 3:12 AM CDT STMA Blood (Blood, Venous) 08/22/2023 2:40 AM CDT 08/22/2023 3:01 AM CDT Latisha Whitehead M.D. LAB BLOOD ADD-ON [facility] [address] [place] [address], [facility] [address] [place] [address] * Triglycerides (08/21/2023 7:32 AM CDT) Triglycerides [...] LAB BLOOD ADD-O N Performing Organization Address City/[facility]/ZIP Co de Phone Number [facility] [address] [place], [place] [phone] [place] [address] [address] [place] [address] * Phosphorus Inorganic (08/21/2023 7:32 AM CDT) Phosphorus (Inorganic), S 2.6 2.5 - 4.5 mg/dL 08/21/2023 9:03 AM CDT DTL Blood (Blood, Venous) 08/21/2023 7:32 AM CDT 08/21/2023 8:38 AM CDT Lizette Harvey M.D. LAB BLOOD ADD-O N Performing Organization Address City/[facility]/ZIP Co de Phone Number [facility] [address] [place] [address], [facility] [address] [place] [address] * Magnesium (08/21/2023 7:32 AM CDT) Magnesium, S 2.3 1.7 - 2.3 mg/dL 08/21/2023 9:03 AM CDT DTL Blood (Blood, Venous) 08/21/2023 7:32 AM CDT 08/21/2023 8:38 AM CDT Lizette Harvey M.D. LAB BLOOD ADD-O N [facility] [address] [place] [address], [facility] [place] [address] [place] [address] * (ABNORMAL) Basic Metabolic Panel (08/21/2023 7:32 [...] ADD-O N Performing Organization Address [facility] Co de Phone Number [facility] [address] [place] [address], [facility] DTL [facility] [address] [place] [address] * (ABNORMAL) CBC without Differential (08/21/2023 7:32 [...] LAB BLOOD ADD-O N Performing Organization Address City/[facility]/ZIP Co de Phone Number [facility] [address] [place] [address], [facility] DTL [facility] [address] [place] [address] * Heparin Anti-Xa Assay (08/21/2023 7:32 AM [...] NON ADD-ON Performing Organization Address [facility]/ZIP Co de Phone Number [facility] [address] [place] [address], [facility] [address] [place] [address] * (ABNORMAL) APTT (Activated Partial Thromboplastin Time) (08/21/2023 7:32 AM CDT) Pathologist [facility] Activated Partial Thrombopl Time, P 49(H) 25 - 37 sec 08/21/2023 8:31 AM CDT [facility] Blood (Blood, Venous) 08/21/2023 7:32 AM CDT 08/21/2023 8:06 AM CDT Boubacar Brock M.D. LAB BLOOD ADD-ON Performing Organization Address City/[facility]/ZIP Co de Phone Number [facility] [address] [place] [address], [facility] [address] [place] [address] * Place peripherally inserted central catheter (PICC) [...] the atrophic right kidney. Lizette Harvey M.D. [facility] CT PROCEDUR ES * (ABNORMAL) Basic Metabolic Panel (08/20/2023 3:19 AM CDT) Pathologist [facility] Potassium, S 3.7 3.6 - [...] AM CDT 08/20/2023 4:19 AM CDT Paula Hernanedz M.D. LAB BLOOD ADD-ON [address] [address], [facility] [address] [address] * (ABNORMAL) CBC without Differential (08/20/2023 3:19 [...] Address City/[facility]/ZIP Co de Phone Number [facility] [address] [place] [address] * (ABNORMAL) APTT (Activated Partial Thromboplastin Time) (08/20/2023 3:19 AM CDT) Activated Partial Thrombopl Time, P 52(H) 25 - 37 sec 08/20/2023 4:33 AM CDT DTL Blood (Blood, Venous) 08/20/2023 3:19 AM CDT 08/20/2023 4:10 AM CDT Boubacar Brock M.D. LAB BLOOD ADD-ON Performing Organization Address City/[facility] Co de Phone Number [facility] [address] [place], [place] [phone] [place] [address] [address] [place] [address] * (ABNORMAL) APTT (Activated Partial Thromboplastin Time) (08/19/2023 10:57 AM CDT) Activated Partial Thrombopl Time, P 54(H) 25 - 37 sec 08/19/2023 11:44 AM CDT DTL Blood (Blood, Venous) 08/19/2023 10:57 AM CDT 08/19/2023 11:26 AM CDT Boubacar Brock M.D. LAB BLOOD ADD-ON Performing Organization Address City/[facility]/ZIP Co de Phone Number [facility] [address] [place] [address] * (ABNORMAL) APTT (Activated Partial Thromboplastin Time) (08/19/2023 4:51 AM CDT) [facility] Activated Partial Thrombopl Time, P 59(H) 25 - 37 sec 08/19/2023 5:53 AM CDT DT Blood (Blood, Venous) 08/19/2023 4:51 AM CDT 08/19/2023 5:36 AM CDT Boubacar Brock M.D. LAB BLOOD ADD-ON [facility] [address] [place] [address] * (ABNORMAL) APTT (Activated Partial Thromboplastin Time) (08/18/2023 10:03 PM CDT) [facility] Activated Partial Thrombopl Time, P 63(H) 25 - 37 sec 08/18/2023 10:41 PM CDT DT Blood (Blood, Venous) 08/18/2023 10:03 PM CDT 08/18/2023 10:19 PM CDT Boubacar Brock M.D. LAB BLOOD ADD-ON Performing Organization Address City/[facility]/ZIP Co de Phone Number [facility] [address] [place], [place] [address] [place] [address] [address] [place] [address] * (ABNORMAL) APTT (Activated Partial Thromboplastin Time) (08/18/2023 2:50 PM CDT) [facility] Activated Partial Thrombopl Time, P 64(H) 25 - 37 sec 08/18/2023 3:25 PM CDT DT Blood (Blood, Venous) 08/18/2023 2:50 PM CDT 08/18/2023 3:07 PM CDT Boubacar Brock M.D. LAB BLOOD ADD-ON [facility] [address] 200 [place] [address] * (ABNORMAL) APTT (Activated Partial Thromboplastin Time) (08/18/2023 6:42 AM CDT) [facility] Activated Partial Thrombopl Time, P 61(H) 25 - 37 sec 08/18/2023 7:28 AM CDT DTL Blood (Blood, Venous) 08/18/2023 6:42 AM CDT 08/18/2023 7:04 AM CDT Boubacar Brock M.D. LAB BLOOD ADD-ON [facility] [address] 200 [place] [address] * (ABNORMAL) APTT (Activated Partial Thromboplastin Time) (08/17/2023 11:04 PM CDT) [facility] Activated Partial Thrombopl Time, P 40(H) 25 - 37 sec 08/17/2023 11:46 PM CDT DT Blood (Blood, Venous) 08/17/2023 11:04 PM CDT 08/17/2023 11:31 PM CDT Boubacar Brock M.D. LAB BLOOD ADD-ON [facility] [address] 200 [place] [address] * US Lower Extremity Veins Bilateral (08/17/2023 [...] and management can be found on the [employer] site. Link [email or web address] Findings discussed with ??Tayler Greenwood, ?? ([id number]) on 08/17/2023 7:11 PM. Procedure Note Jj Jimeens M.D. - 08/18/2023 EXAM: US LOWER EXTREMITY [...] can be found on theAskMayoExpert site. [email or web address]/[email or web address] Findings discussed with Tayler Greenwood MD ([id number]) on 08/17/2023 7:11 PM. IMPRESSION: 1. 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 2. No acute left-sided DVT. Corin Ring M.D. [facility] US PROCEDURES * APTT (Activated Partial Thromboplastin Time) (08/17/2023 4:56 PM CDT) Activated Partial Thrombopl Time, P 29 25 - 37 sec 08/17/2023 5:10 PM CDT STMA Blood (Blood, Venous) 08/17/2023 4:56 PM CDT 08/17/2023 5:00 PM CDT Paula Hernandez M.D. LAB BLOOD ADD-ON Performing Organization Address City/State/[facility] Co de Phone Number [facility] [address] [place] [address], [facility] STMA [facility] [address] [place] [address] * ECG 12 Lead (08/16/2023 9:43 PM CDT) Pathologist [facility] Ventricular Rate ECG/Min 134 BPM MUSE IA Interval 136 ms MUSE QRSD Interval 76 ms MUSE QT Interval 298 ms MUSE QTC Interval 445 ms MUSE P [place] 29 degrees MUSE R [place] -6 degrees MUSE T Wave [place] 21 degrees MUSE 08/16/2023 9:43 PM CDT [...] Azar M.D. ECG ORDERABLES Performing Organization Address [facility] Co de Phone Number MUSE NA * (ABNORMAL) CBC without Differential (08/16/2023 9:40 PM CDT) Pathologist [facility] Hemoglobin 8.8(L) 13.2 - 16.6 [...] CDT Geneva Azar M.D. LAB BLOOD ADD-ON [facility] [address] [place] [address], [facility] [address] [place] [address] * (ABNORMAL) Basic Metabolic Panel (08/16/2023 9:40 PM CDT) [facility] Potassium, S 3.9 3.6 - 5.2 mmol/L [...] CDT Geneva Azar M.D. LAB BLOOD ADD-ON [facility] [address] [place] [address], [facility] [place] [address] [place] [address] * Transfuse Red Blood Cells : (08/16/2023 [...] BLOOD ADD-ON Performing Organization Address [facility]/ZIP Co de Phone Number [facility] [address] [place] [address], [facility] DTL [facility] [address] [place] [address] * (ABNORMAL) CBC without Differential (08/16/2023 3:10 [...] Address City/[facility]/ZIP Co de Phone Number [facility] 200 [place] [address], [facility] DTL [facility] 200 [place] [address] * (ABNORMAL) CBC with Differential, Blood (08/15/2023 3:58 PM CDT) Pathologist [facility] Hemoglobin 9.0(L) 13.2 - 16.6 [...] Carlos Alberto Henson M.D. LAB BLOOD ADD-ON [facility] [address] [place] [address], [facility] DTL [facility] [address] [place] [address] DHPM [facility] [address] [place] [address] * DX Abdomen 1 View (08/15/2023 1:19 [...] CDT 08/15/2023 12:03 PM CDT Rae Gonzalez EMERGENCY SERVICE RESTORER, TOUCH UP PAINTER, DNAP LAB BLOO D NON ADD-ON [facility] [address] [place] [address], [facility] STMA [facility] 200 [place] [address] * Lactate, B - Intra-op (08/15/2023 11:56 AM CDT) Lactate, B 1.1 0.5 - 2.2 mmol/L 08/15/2023 12:06 PM CDT STMA Blood (Blood, Venous) 08/15/2023 11:56 AM CDT 08/15/2023 12:03 PM CDT Hayde Song M.D. LAB BLOOD NON ADD-O N Performing Organization Address City/[facility]/ZIP Co de Phone Number [facility] [address] [place], [place] [address] [place] [address] 200 [place] [address] * (ABNORMAL) Glucose, Whole Blood (08/15/2023 11:56 AM CDT) Glucose 144(H) 70 - 140 mg/dL 08/15/2023 12:06 PM CDT STMA Blood (Blood, Arterial Line) 08/15/2023 11:56 AM CDT 08/15/2023 12:03 PM CDT Hayde Song M.D. LAB BLOOD ADD-ON Performing Organization Address City/[facility]/ZIP Co de Phone Number [facility] 200 [place] [address], [facility] 200 [place] [address] * Potassium, Blood (08/15/2023 11:56 AM CDT) Potassium, B 4.3 3.6 - 5.2 mmol/L 08/15/2023 12:07 PM CDT STMA Blood (Blood, Arterial Line) 08/15/2023 11:56 AM CDT 08/15/2023 12:03 PM CDT Hayde Song M.D. LAB BLOOD NON ADD-O N Performing Organization Address City/State/[facility] Co de Phone Number [facility] [address] [place] [address], [facility] 200 [place] [address] * Sodium, B (08/15/2023 11:56 AM CDT) Sodium, B 135 135 - 145 mmol/L 08/15/2023 12:06 PM CDT [facility] Blood (Blood, Arterial Line) 08/15/2023 11:56 AM CDT 08/15/2023 12:03 PM CDT Hayde Song M.D. LAB BLOOD NON ADD-O N Performing Organization Address City/[facility] Co de Phone Number [facility] 200 [place], [place] [address] 200 [place] [address] * (ABNORMAL) Calcium, Ionized (08/15/2023 11:56 AM CDT) Calcium, Ionized, B 4.53(L) 4.65 - 5.30 mg/dL 08/15/2023 12:07 PM CDT [facility] Blood (Blood, Arterial Line) 08/15/2023 11:56 AM CDT 08/15/2023 12:03 PM CDT Hayde Song M.D. LAB BLOOD NON ADD-O N [facility] [address] [place] [address], [facility] 200 [place] [address] * (ABNORMAL) Blood Gas with Coox, Arterial [...] Song M.D. LAB BLOOD NON ADD-O N [facility] 200 [place] [address], [facility] 200 [place] [address] * [place] Fluoro Less Than 1 Hour [...] CDT 08/15/2023 10:28 AM CDT Rae Gonzalez EMERGENCY SERVICE RESTORER, TOUCH UP PAINTER, DNAP LAB BLOO D NON ADD-ON [facility] [address] [place] [address], [facility] [address] [place] [address] * Lactate, B - Intra-op (08/15/2023 10:28 AM CDT) Lactate, B 1.1 0.5 - 2.2 mmol/L 08/15/2023 10:30 AM CDT STMA Blood (Blood, Venous) 08/15/2023 10:28 AM CDT 08/15/2023 10:28 AM CDT Hayde Song M.D. LAB BLOOD NON ADD-O N Performing Organization Address City/[facility]/ZIP Co de Phone Number [facility] [address] [place] [address], [facility] [address] [place] [address] * Glucose, Whole Blood (08/15/2023 10:28 AM CDT) Glucose 134 70 - 140 mg/dL 08/15/2023 10:30 AM CDT STMA Blood (Blood, Arterial Line) 08/15/2023 10:28 AM CDT 08/15/2023 10:28 AM CDT Hayde Song M.D. LAB BLOOD ADD-ON [facility] [address] [place] [address], [facility] 200 [place] [address] * Potassium, Blood (08/15/2023 10:28 AM CDT) Potassium, B 4.1 3.6 - 5.2 mmol/L 08/15/2023 10:31 AM CDT STMA Blood (Blood, Arterial Line) 08/15/2023 10:28 AM CDT 08/15/2023 10:28 AM CDT Hayde Song M.D. LAB BLOOD NON ADD-O N [facility] [address] [place], [place] [address] [place] [address] 200 [place] [address] * Sodium, B (08/15/2023 10:28 AM CDT) Sodium, B 135 135 - 145 mmol/L 08/15/2023 10:30 AM CDT STMA Blood (Blood, Arterial Line) 08/15/2023 10:28 AM CDT 08/15/2023 10:28 AM CDT Narrative Authorizing Provider Result Abdifatah Song M.D. LAB BLOOD NON ADD-O N [facility] [address] [place], [place] [address] [place] [address] * (ABNORMAL) Calcium, Ionized (08/15/2023 10:28 AM CDT) Calcium, Ionized, B 4.25(L) 4.65 - 5.30 mg/dL 08/15/2023 10:31 AM CDT STMA Blood (Blood, Arterial Line) 08/15/2023 10:28 AM CDT 08/15/2023 10:28 AM CDT Hayde Song M.D. LAB BLOOD NON ADD-O N [facility] [address] [place] [address], [facility] [address] [place] [address] * (ABNORMAL) Blood Gas with Coox, Arterial (08/15/2023 10:28 AM CDT) [facility] Signature pO2 171(H) 83 - 108 mm [...] Song M.D. LAB BLOOD NON ADD-O N [facility] [address] [place] [address], [facility] [address] [place] [address] * Bacteria / Yomaira Culture, Blood #2 (08/15/2023 3:33 AM CDT) Pathologist [facility] Bacteria/Leyla da Culture, Blood No growth after 5 days of incubation. 08/20/2023 6:02 AM CDT DTL Blood (Blood, Peripheral Draw) 08/15/2023 3:33 AM CDT 08/15/2023 5:58 AM CDT Comment:Specimen Source Site : Blood Narrative [facility] - 08/20/2023 6:02 AM CDT Received Bactec aerobic and Bactec anaerobic bottles Carlos Alberto Henson M.D. LAB MICROBIOLOGY - [facility] ORDERABLES [facility] [address] [place] [address], [facility] 200 [place] [address] * (ABNORMAL) Basic Metabolic Panel (08/15/2023 3:31 AM CDT) Pathologist [facility] Potassium, S 4.0 3.6 - [...] BLOOD ADD-ON Performing Organization Address [facility] Co de Phone Number [facility] 200 [place] [address] * Bacteria / Yomaira Culture, Blood #1 (08/15/2023 3:31 AM CDT) [facility] Bacteria/Leyla da Culture, Blood No growth after 5 days of incubation. 08/20/2023 6:02 AM CDT DTL Blood (Blood, Peripheral Draw) 08/15/2023 3:31 AM CDT 08/15/2023 5:59 AM CDT Comment:Specimen Source Site : Blood Carlos Alberto Henson M.D. LAB MICROBIOLOGY - G ENERAL ORDERABLES Performing Organization Address [facility] de Phone Number [facility] 200 [place] [address] * (ABNORMAL) CBC with Differential, Blood (08/15/2023 3:30 AM CDT) [facility] Hemoglobin 9.5(L) 13.2 - 16.6 g/dL [...] Carlos Alberto Henson M.D. LAB BLOOD ADD-ON [facility] [address] [place] [address], [facility] DTL [facility] [address] [place] [address] DHPM [facility] [address] [place] [address] * (ABNORMAL) CBC with Differential, Blood (08/14/2023 8:08 PM CDT) [facility] Signature Hemoglobin 9.8(L) 13.2 - 16.6 g/dL [...] Carlos Alberto Henson M.D. LAB BLOOD ADD-ON [facility] [address] [place] [address], [facility] STMA [facility] [address] [place] [address] [facility] [address] [place] [address] * Transfuse Red Blood Cells : , 2 Units (08/14/2023 6:55 PM CDT) Carlos Alberto Henson M.D. BLOOD TRANSFUSION OR DERABLES * Transfuse Red Blood Cells : (08/14/2023 6:55 PM CDT) [facility] BLOOD TRANSFUSION OR DERABLES * Transfuse Red Blood Cells : (08/14/2023 3:40 PM CDT) [facility] BLOOD TRANSFUSION OR DERABLES * [...] Carlos Alberto Henson M.D. LAB BLOOD ADD-ON [facility] [address] [place] [address], [facility] STMA [facility] [address] [place] [address] [facility] [address] [place] [address] * (ABNORMAL) Basic Metabolic Panel (08/14/2023 3:18 [...] LAB BLOOD ADD-ON Performing Organization Address City/[facility] Co de Phone Number [facility] 200 [place] [address], [facility] DTL [facility] 200 [place] [address] * Type and Screen (with Reflex Antibody ID) (08/13/2023 7:35 PM CDT) [facility] ABORh O Pos Not applicable 08/13/2023 7:58 PM CDT STRM Antibody Screen Negative Negative 08/13/2023 8:13 PM CDT STRM Type & Screen Expiration 08/16/2023 23:59 08/13/2023 7:58 PM CDT STRM Testing Location [place] DEFAULT 08/13/2023 7:39 PM CDT STRM Blood (Blood, Venous) 08/13/2023 7:35 PM CDT 08/13/2023 7:39 PM CDT Carlos Alberto Henson M.D. LAB BLOOD BANK TEST ORDERABLES Performing Organization Address [facility] Co de Phone Number [facility] [address] [place] [address], [facility] 200 [place] [address] * (ABNORMAL) Bacteria / Yomaira Culture, Blood #1 (08/13/2023 7:35 PM CDT) [facility] Bacteria/Cand jessica Culture, Blood ESCHERICHIA COLI Growth after 11 Hours (A) 08/16/2023 11:17 AM CDT DTL Comment: 3 of 3 Bottles, Susceptibilities performed on another specimen [id number] Blood (Blood, Peripheral Draw) 08/13/2023 7:35 PM CDT 08/13/2023 8:15 PM CDT Comment:Specimen Source Site : Blood Carlos Alberto Henson M.D. LAB MICROBIOLOGY - G ENERAL ORDERABLES [facility] [address] [place] [address], [facility] DTL [facility] [address] [place] [address] * ECG 12 Lead (08/13/2023 7:02 PM CDT) Ventricular Rate ECG/Min 128 BPM MUSE IA Interval 138 ms MUSE QRSD Interval 64 ms MUSE QT Interval 304 ms MUSE QTC Interval 443 ms MUSE P [place] 45 degrees MUSE R [place] 34 degrees MUSE T Wave [place] 46 degrees MUSE 08/13/2023 7:02 PM CDT 08/13/2023 7:13 PM CDT Impressions MUSE - 08/13/2023 7:13 PM CDT Sinus tachycardia Otherwise normal ECG No previous ECGs available Reviewed by BETTY Walton Narrative Procedure Note Lucas Lee M.D. - 08/13/2023 IMPRESSION: Sinus tachycardia Otherwise normal ECG No previous ECGs available Reviewed by BETTY Walton Toby Wright ECG ORDERABLES Performing Organization Address [facility] Co de Phone Number MUSE NA * [...] CDT Comment:Specimen Source Site : Blood Narrative [facility] - 08/16/2023 11:17 AM CDT [...] <=0.5 mcg/mL: Susceptible Escherichia coli Cefazolin SUSCEPTIBILITY, ALYO (MCG/ML) <=2 mcg/mL: Susceptible Escherichia coli Trimethoprim + Sulfamethoxazole SUSCEPTIBILITY, LAYO (MCG/ML) <=0.5/9.5 mcg/mL: Susceptible Escherichia coli Cefdinir SUSCEPTIBILITY, LAYO (MCG/ML) <=1 mcg/mL: Susceptible Carlos Alberto Henson M.D. LAB MICROBIOLOGY - G ENERAL ORDERABLES [address] [address], [facility] [address] [address] * Magnesium (08/13/2023 5:27 PM CDT) Magnesium, S 1.9 1.7 - 2.3 mg/dL 08/13/2023 6:12 PM CDT DTL Blood (Blood, Venous) 08/13/2023 5:27 PM CDT 08/13/2023 5:58 PM CDT Carlos Alberto Henson M.D. LAB BLOOD ADD-ON Performing Organization Address [facility]/ZIP Co de Phone Number [facility] [address] [place], [place] [address] [place] [address] [facility] [place] [address] [place] [address] * (ABNORMAL) Hepatic Function Panel (08/13/2023 5:27 [...] Address City/[facility]/ZIP Co de Phone Number [facility] [address] [place] [address], [facility] [place] [address] [place] [address] * (ABNORMAL) Basic Metabolic Panel (08/13/2023 5:27 [...] Henson M.D. LAB BLOOD ADD-ON [facility] [address] [place] [address], [facility] [address] [place] [address] * Prothrombin Time (PT) (08/13/2023 5:27 PM [...] Carlos Alberto Henson M.D. LAB BLOOD ADD-ON [facility] [address] [place] [address], [facility] [address] [place] [address] * (ABNORMAL) CBC with Differential, Blood (08/13/2023 [...] Carlos Alberto Henson M.D. LAB BLOOD ADD-ON [facility] [address] [place] [address], [facility] STMA [facility] [address] [place] [address] DHPM [facility] [address] [place] [address] * (ABNORMAL) Dipstick, Urine (08/13/2023 5:07 PM [...] Carlos Alberto Henson M.D. LAB URINE ORDERABLES [facility] [address] [place] [address], [place] [facility] [place] [address] [place] [address] * Osmolality, Urine (08/13/2023 5:07 PM CDT) Osmolality, U 351 150 - 1150 mOsm/kg 08/13/2023 7:46 PM CDT DTL Urine 08/13/2023 5:07 PM CDT 08/13/2023 5:45 PM CDT Carlos Alberto Henson M.D. LAB URINE ORDERABLES [facility] [address] [place] [address], [facility] [address] [place] [address] * (ABNORMAL) Microscopic Manual (08/13/2023 5:07 PM [...] Carlos Alberto Henson M.D. LAB URINE ORDERABLES [facility] [address] [place] [address], [facility] 200 [place] [address] * pH, Random, Urine (08/13/2023 5:07 PM CDT) pH, Random, U 7.0 4.5 - 8.0 08/13/2023 7:46 PM CDT DTL Urine 08/13/2023 5:07 PM CDT 08/13/2023 5:45 PM CDT Carlos Alberto Henson M.D. LAB URINE ORDERABLES [facility] [address] [place] [address], [facility] [place] [address] [place] [address] * (ABNORMAL) Bacterial Culture, Aerobic + Susceptibility, [...] Alberto Henson M.D. LAB MICROBIOLOGY - [facility] ORDERABLES [facility] [address] [address], [facility] [place] [address] * (ABNORMAL) Urinalysis, with Microscopic: Urine, Midstream [...] CDT DTL Predicted 24 [place] [address](H) <229 mg/24 h 08/13/2023 8:50 PM CDT DTL Predicted Range [id number] mg/24 h 08/13/2023 8:50 PM CDT DTL Comment Micro done on <2.5 mL 08/13/2023 7:55 PM CDT DTL Urine (Urine, Midstream) 08/13/2023 5:07 PM CDT 08/13/2023 5:44 PM CDT Carlos Alberto Henson M.D. LAB URINE ORDERABLES [facility] [address] [place] [address], [facility] DTL [facility] [address] [place] [address] * Interpretation of Outside CT Abdomen and [...] 300 mg, oral, 2 times daily before morning and evening meals, First dose on Tue08/22/23 at 1600, Administer [...] mg, gastric tube, 2 times daily before morning and evening meals, First dose on Tue08/22/23 at 1700, Administer [...] 300 mg, oral, 2 times daily before morning and evening meals, First dose (after last modification) on Tue08/23/23 [...] home supply. 08/17/23: Id'ed by [facility] Rx# [id number], filled 07/22/23. HAZARDOUS - Handle with care. Swallow whole. Do NOT crush, chew or open capsule. Given 08/26/2023 9:12 AM CDT 120 mg Given 08/25/2023 9:08 AM CDT 120 mg Given 08/24/2023 9:12 AM CDT 120 mg fat emulsion [id number]-jcd-[id number] & fish oil infusion 50 g (SMOFlipid) [...] Ringer's 1.5 mL/kg/hr ? 75 kg [place] weight (112.5 mL/hr, rounded to 113 mL/hr), intravenous, Continuous, Starting on Tue08/22/23 at 1030, Conditional Phase Pre-Gastrografin Administration. (Rate = 1.5 mL/kg/hr ideal body weight) Lactated Ringer's 0.75 mL/kg/hr ? 75 kg [place] weight (56.25 mL/hr, rounded to 56.3 mL/hr), [...] morning and evening meals, First dose on Tue08/16/23 at 0745, Administer with water at least 1 hr prior to meals., Restriction Criteria (Pharmacy will review and approve if criteria met): Use in patients 65 years of age or older Given 08/20/2023 4: 10 PM CDT 20 mg Given 08/20/2023 6:05 AM CDT 20 mg Given 08/19/2023 4:39 PM CDT 20 mg trospium tablet 20 mg (SANCTURA) 20 mg, gastric tube, 2 times daily before morning and evening meals, First dose (after last modification) on Tue08/21/23 [...] before morning and evening meals, First dose (after last modification) on Tue08/23/23 [...] 300 mg, oral, 2 times daily before morning and evening meals, First dose (after last modification) on Tue08/23/23 [...] use home supply. 08/17/23: Id'ed by [facility] Rx# [id number], filled 07/22/23. HAZARDOUS - Handle with care. Swallow whole. Do NOT crush, chew or open capsule. 09 (Given - Provider: Tayler Forrest R.N. - Comment: Pat Murray, -2nd RN) 09 (Given - Provider: Tayler Forrest R.N. - Comment: Pt 's own med from home) 911 (Given - Provider: Lupe Valdez R.N.) fat emulsion ncu-ysz-[id number] & fish oil infusion 50 g (SMOFlipid) [...] before morning and evening meals, First dose (after last modification) on Tue08/23/23 [...] Ringer's 1.5 mL/kg/hr ? 75 kg [place] weight (112.5 mL/hr, rounded to 113 mL/hr), intravenous, Continuous, Starting on Tue08/22/23 at 1030, Conditional Phase Pre-Gastrografin Administration. (Rate = 1.5 mL/kg/hr ideal body weight) Lactated Ringer's 0.75 mL/kg/hr ? 75 kg [place] weight (56.25 mL/hr, rounded to 56.3 mL/hr), [...] [id number] documented in this encounter Care Teams Machining Associate Relationship Specialty Start Date End Date Elsewhere, Pcp PCP - General Internal Medicine 08/13/23 documented as of this encounter
--- OUTSIDE RECORDS SUMMARY | 2023-10-14 09:21 | XMS_ITS | Encounter Summary ---
Author Organization [facility] Address [address] [place] [address] Care Team Providers Care Book Retailer Name Role Phone Elsewhere, Pcp Primary Care Provider Unavailabl e Encounter Details Date Type Department Care Team (Late st Contact Info) Description 08/15/2023 8:30 AM CDT Anesthesia Event [facility] MAIN OR [address] [place] [id number] Hayde Song M.D. [address] [place] [address] Anesthesia Record Procedure Summary Procedure Name Responsible [...] R.N. 08/15/23 0909 by Rae Gonzalez APRN, HEARSE DRIVER, DNAP Peripheral IV Placement Date: 08/02; Existing [...] Never Smokeless Tobacco: Never [facility] Utilities Answer Date Recorded In the past 12 months has e [employer], gas, oil, or water [facility] threatened to shut off services in your [...] Procedure Summary Date: 08/15/23 Room / Location: [place] [address] / [facility] in [place], [place] Anesthesia Start: 829 Anesthesia Stop: 1317 [...] * Anesthesia Procedure Notes - Rae Gonzalez, MECHANICAL ASSEMBLY TECHNICIAN, GAVIN, DNAP - 08/15/2023 9:51 AM CDTAssociated [...] ETT location: oral VL device: glide scope [place] scope blade size: 4 Tube size: 7.5 [...] 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 Location: [place] [address] / [facility] in [place], [place] Providers: Boubacar Brock M.D. Pertinent components [...] patient / legal guardian, or through an appliquer zigzag; patient evaluated and approved for anesthesia / [...] CDT Procedure visit Department of Urology in [place], [place] [address] [place] [address] Paula Hernandez M.D. [address] [place] [address] documented as of this encounter Procedures Procedure Name Priority Date/Time Associated Diagnosis Comments MC ANE INVASIVE CATH WITH ULTRASOUND Routine 08/15/2023 9:51 AM CDT LDA ANE ARTERIAL LINE INSERTION Routine 08/15/2023 9:51 AM CDT ID US GUIDE VASC ACCESS Routine 08/15/2023 9:51 AM CDT ID ARTL CATH/CNULA MONITOR PERC Routine 08/15/2023 9:51 AM CDT LDA ANE ENDOTRACHEAL AIRWAY Routine 08/15/2023 8:40 AM CDT documented in this encounter Results * ID ARTL CATH/CNULA MONITOR PERC, ID US GUIDE VASC ACCESS, LDA ANE ARTERIAL [...] ETT location: oral VL device: glide scope [place] scope blade size: 4 Tube size: 7.5 [...] mg documented in this encounter Care Teams Book Retailer Relationship Specialty Start Date End Date Elsewhere, Pcp PCP - General Internal Medicine 08/13/23 documented as of this encounter
--- OUTSIDE RECORDS SUMMARY | 2023-10-14 09:22 | XMS_ITS | Encounter Summary ---
Author Organization [facility] Address [address] [place] [address] Care Team Providers Care Market Gardener Name Role Phone Elsewhere, Pcp Primary Care Provider Unavailabl e Encounter Details Date Type Department Care Team (Late st Contact Info) Description 08/15/2023 7:55 AM CDT - 08/15/2023 11:23 AM CDT Surgery RST ROMB MAIN OR [address] [place] [address] Boubacar Brock M.D. [address] [place] [phone] Palliative EXPLORATORY LAPAROTOMY, CYSTOTOMY CLOSURE, RIGHT URETERAL STENT EXCHANGE Social History Tobacco Use Types Packs/Day Years Used Date Smoking Tobacco: Never Smokeless Tobacco: Never [facility] Utilities Answer Date Recorded In the past [...] your living situation today? I have a [facility] place to live 08/13/2023 Sex [...] M.D.Wen, Lexiaochuan, M.D.Premo, Hayley, M.D.Botkin, Hannah, M.D. [facility] ROMB OR DISCHARGE DISPOSITION Home or Self Care [1] ACTIVE ISSUES REQUIRING FOLLOW UP OUTPATIENT FOLLOW UP Scheduled Appointments 08/26/2023 1:00 PM [facility] Radiology For appointment details refer [...] he felt completely obstructed and presented to [place] [facility]. [place] Course Attempted Tabares insertion but bladder irrigation was unsuccessful on multiple attempts. Hung 1U pRBC's. Given some volume and transferred to [facility] ICU ICU Course Urology consulted and [...] CONSULT TO NUTRITION SUPPORT IP CONSULT TO SAP BUSINESS OBJECTS DEVELOPER WOUND CARE CONDITION AT DISCHARGE stable [...] he felt completely obstructed and presented to [place] [facility]. [place] Course Attempted Tabares insertion but bladder irrigation was unsuccessful on multiple attempts. Hung 1U pRBC's. Given some volume and transferred to [facility] ICU ICU Course Urology consulted and [...] PM CDT You were discharged from the [facility] Urology Surgery - Chief A - Blue Service. Please identify this service name if you call with questions after hospitalization. * Attachments The following attachments cannot be sent through Care Everywhere. * Bacitracin (On the skin) (Ukrainian) * Cefdinir (By mouth) (Ukrainian) * Trospium (By mouth) (Ukrainian) documented in this encounter Medications at Time [...] another provider. * Chary Diamond M.A., O.T., [facility] - 08/26/2023 10:21 AM CDT Occupational Therapy [facility] Inpatient Treatment SUBJECTIVE Patient's Name: Kalen Vega Referring/Attending Provider: Boubacar Brock M.D. Reason for Referral: Occupational Therapy Evaluation and Treatment History of Present Illness: Kalen Vega is a 83 y.o. male who was admitted to [facility] in [place] on 08/13/2023 for Hematuria [R31.9]. Precautions Other Precautions: Abdominal, fall precautions, monitor tachycardia and hypertension Pain Assessment: Pain not reported during session. Subjective Comments: Agreeable to therapy session. Team Communication: The patient's status was discussed and coordination of care occurred with RN, Family/Caregiver, nurse tech Family/Caregiver Present: son and [id number] OBJECTIVE Vital Signs: Vitals not formally assessed during session. No concerns during chart review and the patient had nosigns or symptoms consistent with vital changes during therapy session. Outcome Measures: [facility] Inpatient Short Form: Putting on and [...] or below 17 Clinicians answer the [facility] Inpatient Short Form based on observed [...] through pant leg first. - Adaptive Equipment: Iuss Analyst TOILETING - Assist Level: Maximal Assist - [...] (Edge of bed) - Assist Level: Modified Chambers - Equipment: bed rail - Therapist Delivery: assessed, instructed, assisted - Adaptive Equipment: leg apprenticeship consultant trialed ; however, patient able to move [...] extremity (stiff knee) first. Recommended adaptive equipment: Iuss Analyst. 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 Patient's son Kar and orvmliex-vy-xdw will provide transportation at the time of discharge. PLAN Patient to discharge home with home health care. Home Medical Care - Admitted Since 08/13/2023 Service Provider Selected Services Address Phone Fax Patient Preferred [facility] [address] [facility] [place] [phone] -- Tube Balancer: [facility] NURSING: - Complete documentation in the Discharge Navigator including Nursing Report Info and Facility/NextLevel of Care Info - Call report and arrange for the patient's first visit - Send After Visit Summary and required packet of dismissal information with patient, including advance directive. PRIMARY SERVICE: - Please provide a non-[facility] home health order for: physical therapy and [...] be provided by family--patient's son Kar and ambaiivo-yw-coc. 3. chair and couch maker recommended reaching out to family, friends, and neighbors for assistance. 4. chair and couch maker provided information regarding the dismissal process. Damaris [...] Reviewed with patient #1 Hematuria Please page [facility] ([phone]) or [facility] ([phone]) Nutrition Support Service pager with questions. * Emeterio Buchanan P.T., D.P.T., [facility] - 08/25/2023 9:35 AM CDT Physical Therapy Inpatient Treatment SUBJECTIVE Patient's Name: Kalen Vega Referring/Attending Provider: Boubacar Brock M.D. Reason for Referral: Physical Therapy Evaluate and Treat History of Present Illness: Kalen Vega is a 83 y.o. male who was admitted to [facility] in [place] on 08/13/2023 for Hematuria [R31.9] Precautions Other [...] session; within normal ranges. Outcome Measures: [facility] Inpatient Short Form: AM-[facility] Basic Mobility (V.2) How much [...] 3-5 steps with a railing?: A Little AM-[facility] Basic Mobility (V.2) Raw Score: 18 AM-[facility] Basic Mobility (V.2) Standardized Score: 41.05 Interpretation: Based on scoring guidelines using the raw score value: Those going to home had an average score at or above 18 Those going to facility had an average score at or below 17 Clinicians answer the -[facility] Inpatient Short Form based on [...] 83 y.o. male who was admitted to [facility] in [place] on 08/13/2023 for Hematuria [R31.9]. Precautions Other Precautions: Abdominal, fall precautions, monitor tachycardia and hypertension Pain Assessment: Pain not reported during session. Subjective Comments: Agreeable to therapy session. Team Communication: The patient's status was discussed and coordination of care occurred with RN, PT OBJECTIVE Vital Signs: Vitals monitored throughout session; within normal ranges. Outcome Measures: [facility] Inpatient Short Form: Putting on and [...] or below 17 Clinicians answer the [facility] Inpatient Short Form based on observed [...] including figure four technique. Recommended adaptive equipment: Iuss Analyst and Sock Aid. Toileting - Patient instructed [...] and modification tools as needed including leg apprenticeship consultant and/or bed adjustments. Bathroom DME: - Educated [...] in place draining clear yellow urine I/O ([id number]): Fifty-five cc serosanguineous from the drain 1 [...] locallyfor CBI. He was subsequently transferred to [facility] 08/12 for difficulty irrigating his catheter [...] have him follow up with his local mailroom messenger Comorbidities: --history of DVT status post IVC [...] discussed with Dr. Venegas, chief urology resident regional account executive. Pager during business hours: [phone] Pager after hours: [phone] * Emeterio Buchanan P.T., D.P.T., [facility] - 08/24/2023 10:46 AM CDT Physical Therapy Inpatient Treatment SUBJECTIVE Patient's Name: Kalen Vega Referring/Attending Provider: Boubacar Brock M.D. Reason for Referral: Physical Therapy Evaluate and Treat History of Present Illness: Kalen Vega is a 83 y.o. male who was admitted to [facility] in [place] on 08/13/2023 for Hematuria [R31.9] Precautions Other [...] and O2flow: Room air Outcome Measures: [facility] Inpatient Short Form: -[facility] Basic Mobility (V.2) How much [...] 3-5 steps with a railing?: A Lot -[facility] Basic Mobility (V.2) Raw Score: 17 -[facility] Basic Mobility (V.2) Standardized Score: 39.67 Interpretation: Based on scoring guidelines using the raw score value: Those going to home had an average score at or above 18 Those going to facility had an average score at or below 17 Clinicians answer the [facility] Inpatient Short Form based on observed [...] baseline. PT Goal #2: Patient will perform bkt-pg-gorer transfer with modified independence and least restrictive [...] Total Kcal/day: 1370 based on 84 % Garcia-Wesco Non-standard additives: K 80 mEq Phos 30 [...] magnesium, phosphorus tomorrow. #1 Hematuria Please page [facility] ([phone]) or [facility] ([phone]) Nutrition Support Service pager with questions. * [...] : Tabares catheter in place draining light simth I/O ([id number]): Forty-two cc serosanguineous from the drain 2.2 [...] locallyfor CBI. He was subsequently transferred to [facility] 08/12 for difficulty irrigating his catheter [...] 2.5 mg BID eliquis initiated 08/15 per [facility] med curbside recs --transition from eliquis [...] have him follow up with his local mailroom messenger Comorbidities: --history of DVT status post IVC [...] discussed with Dr. Venegas, chief urology resident regional account executive. Pager during business hours: [phone] Pager after hours: [phone] * Deanne Mike L.G.S.W., M.S.W. - 08/23/2023 11:25 AM CDT SUBJECTIVE Social Work spoke with [facility]. They cannot provide usp at this time. They can provide OT/PT [...] anticipated discharge date of 08/24/23-08/26/23. Referrals sent: [facility] [place] - [facility] (out of service area) [facility] ASSESSMENT / PLAN ASSESSMENT Patient has robust family support including a son living with him. PLAN Patient desires home health care through [facility]. Social Work will continue to follow to provide support. Social Work will continue to assist with discharge needs. Shorty Sun, M.S.W. 08/23/23 * Jazmine Benítez, RRitesh., C.W.C.N. - 08/23/2023 11:10 AM CDT [facility] Wound RN [...] stent and hematuria who is transferred from [place] ED with 3 days of hematuria and [...] None Unable to Measure Y *Wound Bed Closed;[place];Red Tissue Exposed None Odor None *Exudate Amount [...] 30 minutes > 30 minutes Ongoing management Nursing;Wound/paper folder Partial head to toe skin assessment [...] nursing. They agree to the plan. The [facility] RN will sign-off. Please place a wound care consult for any new concerns. Electronically signed by: Jazmine Benítez R.N., [place] 08/23/23 11:10 AM CDT * Emeterio Buchanan P.T., D.P.T., [facility] - 08/23/2023 11:02 AM CDT Physical Therapy Inpatient Treatment SUBJECTIVE Patient's Name: Kalen Vega Referring/Attending Provider: Boubacar Brock M.D. Reason for Referral: Physical Therapy Evaluate and Treat History of Present Illness: Kalen Vega is a 83 y.o. male who was admitted to [facility] in [place] on 08/13/2023 for Hematuria [R31.9] Precautions Other [...] 3-5 steps with a railing?: A Lot -[facility] Basic Mobility (V.2) Raw Score: 17 [facility] Basic Mobility (V.2) Standardized Score: 39.67 Interpretation: Based on scoring guidelines using the raw score value: Those going to home had an average score at or above 18 Those going to facility had an average score at or below 17 Clinicians answer the [facility] Inpatient Short Form based on observed [...] baseline. PT Goal #2: Patient will perform mhs-rm-mnfhx transfer with modified independence and least restrictive [...] D.P.T., GCS * Demarco Salazar Pharm.D., R.Ph., [facility] - 08/23/2023 10:19 AM CDT [...] Total Kcal/day: 1370 based on 84 % Garcia-Wesco Non-standard additives: MAX chloride Thiamine 100 mg [...] magnesium, phosphorus tomorrow. #1 Hematuria Please page [facility] ([phone]) or [facility] ([phone]) Nutrition Support Service pager with questions. * Ivy Hernandez O.T. - 08/23/2023 8:30 AM CDT Occupational Therapy [facility]patient Treatment SUBJECTIVE Patient's Name: Kalne Vega Referring/Attending Provider: Boubacar Brock M.D. Reason for Referral: Occupational Therapy Evaluation and Treatment History of Present Illness: Kalen Vega is a 83 y.o. male who was admitted to [facility] in [place] on 08/13/2023 for Hematuria [R31.9]. Precautions Other Precautions: Abdominal, fall precautions, monitor tachycardia and hypertension Pain Assessment: Pain not reported during session. Subjective Comments: Agreeable to therapy session. Team Communication: The patient's status was discussed and coordination of care occurred with RN, PT OBJECTIVE Vital Signs: Vitals monitored throughout session; within normal ranges. Outcome Measures: [facility] Inpatient Short Form: Putting on and [...] or below 17 Clinicians answer the [facility] Inpatient Short Form based on observed [...] catheter in place draining clear yellow I/O ([id number]): 73 cc serosanguineous from the drain Seven [...] locallyfor I. 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 [facility] Summary: Diet: NPO, TPN Activity: [...] discussed with Dr. Venegas, chief urology resident regional account executive. Pager during business hours: [phone] Pager after hours: [phone] * Chary Diamond M.A., O.T., BCP - [...] [facility] Social Work sent referral. OBJECTIVE Patient is anticipated to remain at [facility] for 3-5 days. Referrals sent: [facility] ASSESSMENT / PLAN ASSESSMENT [...] 83 y.o. male who was admitted to [facility] in [place] on 08/13/2023 for Hematuria [R31.9] Precautions Other [...] 3-5 steps with a railing?: A Lot AM-[facility] Basic Mobility (V.2) Raw Score: 17 -[facility] Basic Mobility (V.2) Standardized Score: 39.67 Interpretation: Based on scoring guidelines using the raw score value: Those going to home had an average score at or above 18 Those going to facility had an average score at or below 17 Clinicians answer the -[facility] Inpatient Short Form based on [...] baseline. PT Goal #2: Patient will perform pjg-wu-vxtbv transfer with modified independence and least restrictive [...] Total Kcal/day: 1370 based on 84 % Garcia-Wesco Non-standard additives: MAX chloride Thiamine 100 mg [...] place draining light smith colored urine I/O ([id number]): CBI on slow drip 75 cc serosanguineous [...] locallyfor CBI. He was subsequently transferred to [facility] 08/12 for difficulty irrigating his catheter [...] 2.5 mg BID eliquis initiated 08/15 per [facility] med curbside recs --transition from eliquis [...] have him follow up with his local mailroom messenger Comorbidities: --history of DVT status post IVC [...] discussed with Dr. Venegas, chief urology resident regional account executive. Pager during business hours: [phone] Pager after hours: [phone] * Qamar Jim, Pharm.D., R.Ph. - 08/21/2023 [...] place draining clear smith colored urine I/O ([id number]): 1800 cc urine output 75 cc serosanguineous [...] locallyfor CBI. He was subsequently transferred to [facility] 08/12 for difficulty irrigating his catheter [...] have him follow up with his local mailroom messenger Comorbidities: --history of DVT status post IVC [...] discussed with Dr. Venegas, chief urology resident regional account executive. Pager during business hours: [phone] Pager after hours: [phone] * Lizette Harvey M.D. - 08/20/2023 8:08 [...] draining clear thin merlot colored urine I/O ([id number]): 240 cc p.o. intake 760 cc urine [...] locallyfor CBI. He was subsequently transferred to [facility] 08/12 for difficulty irrigating his catheter [...] 2.5 mg BID eliquis initiated 08/15 per [facility] med curbside recs --transition from eliquis [...] have him follow up with his local mailroom messenger Comorbidities: --history of DVT status post IVC [...] questions or concerns. Pager during business hours: [phone] Pager after hours: [phone] * Qamar Jim, PharmJonahD., R.Ph. - 08/20/2023 [...] Jim, PharmPerla., R.Ph. * Lisa Seaman, O.T., [facility] - 08/19/2023 2:26 PM CDT Occupational Therapy [facility] Inpatient Treatment SUBJECTIVE Patient's Name: Kalen Vega Referring/Attending Provider: Boubacar Brock M.D. Reason for Referral: Occupational Therapy Evaluation and Treatment History of Present Illness: Kalen Vega is a 83 y.o. male who was admitted to [facility] in [place] on 08/13/2023 for Hematuria [R31.9]. Precautions Other Precautions: Abdominal, fall precautions, monitor tachycardia and hypertension Pain Assessment: Pain not reported during session. Subjective Comments: Patient greeted in chair and agreeable to therapy session. Team Communication: The patient's status was discussed and coordination of care occurred with RN OBJECTIVE Vital Signs: Vitals monitored throughout session; within normal ranges. Outcome Measures: [facility] Inpatient Short Form: Putting on and [...] or below 17 Clinicians answer the [facility] Inpatient Short Form based on observed [...] about patient's nutritional care please contact pager [phone] on weekdays or [phone] on weekends/holidays. NUTRITION ASSESSMENT: Mr. Vega is [...] care everywhere) ESTIMATED NEEDS: Total Calorie Needs: 5018-4814 calories/day Method to Estimate Energy Needs: kcal/kg [...] 83 y.o. male who was admitted to [facility] in [place] on 08/13/2023 for Hematuria [R31.9] Precautions Other [...] mmHg O2: 96% Room air Outcome Measures: [facility] Inpatient Short Form: -[facility] Basic Mobility (V.2) How much [...] 3-5 steps with a railing?: A Little -[facility] Basic Mobility (V.2) Raw Score: 18 -[facility] Basic Mobility (V.2) Standardized Score: 41.05 Interpretation: Based on scoring guidelines using the raw score value: Those going to home had an average score at or above 18 Those going to facility had an average score at or below 17 Clinicians answer the [facility] Inpatient Short Form based on observed [...] Ongoing PT Goal #2: Patient will perform que-us-gsekw transfer with modified independence and least restrictive [...] in place draining clear pink urine I/O ([id number]): 370 p.o. intake 1 L urine output [...] locallyfor CBI. He was subsequently transferred to [facility] 08/12 for difficulty irrigating his catheter [...] 2.5 mg BID eliquis initiated 08/15 per [facility] med curbside recs --transition from eliquis [...] have him follow up with his local mailroom messenger Comorbidities: --history of DVT status post IVC [...] questions or concerns. Pager during business hours: [phone] Pager after hours: [phone] * Lisa Seaman, O.TJonah, [facility] - 08/18/2023 11:15 AM CDT Occupational Therapy [facility] Inpatient Treatment SUBJECTIVE Patient's Name: Kalen Vega Referring/Attending Provider: Boubacar Brock M.D. Reason for Referral: Occupational Therapy Evaluation and Treatment History of Present Illness: Kalen Vega is a 83 y.o. male who was admitted to [facility] in [place] on 08/13/2023 for Hematuria [R31.9]. Precautions Other [...] 168/97 - nurse notified Outcome Measures: [facility] Inpatient Short Form: Putting on and [...] or below 17 Clinicians answer the [facility] Inpatient Short Form based on observed [...] doffing over it last. Recommended adaptive equipment: Iuss Analyst and Sock Aid. Patient was left in bedside chair, with nursing/COLOR CORRECTOR at end of session with call light [...] 83 y.o. male who was admitted to [facility] in [place] on 08/13/2023 for Hematuria [R31.9] Precautions Other [...] vital signs with primary service. Outcome Measures: AM-[facility] Inpatient Short Form: AM-[facility] Basic [...] or below 17 Clinicians answer the [facility] Inpatient Short Form based on observed [...] following coordination of care occurred with the miner helper/Caregiver Present: No Patient was left in [...] Progressing PT Goal #2: Patient will perform nzk-rj-enqxm transfer with modified independence and least restrictive [...] in place draining clear pink urine I/O ([id number]): 1.2 L p.o. intake 1 L urine [...] locallyfor I. He was subsequently transferred to [facility] 08/12 for difficulty irrigating his catheter [...] 2.5 mg BID eliquis initiated 08/15 per [facility] med curbside recs --transition from eliquis [...] diet later today follow up vascular medicine [facility] Summary: Diet: currently limited clears Activity: Ad kong DVT PPX: heparin drip GI PPX: Pantoprazole Bowel Regimen:N/A IVF: none Abx/Microbiology: Ceftriaxone Pain Control: Tylenol, oxycodone 08/18. Scheduled trospium Home Meds Resumed: Metoprolol, tamsulosin, rosuvastatin Held Home Meds: None Consults: None Paula Hernandez M.D. 08/18/2023 6:02 AM CDT Please page the Urology Chief Service with questions or concerns. Pager during business hours: [phone] Pager after hours: [phone] * Tayler Greenwood M.D., M.Ed. - 08/17/2023 [...] the patient follow up with his primary mailroom messenger at discharge we will which we will [...] Ringer's Lactated Ringer's * Lisa Seaman O.T., [facility] - 08/17/2023 10:47 AM CDT Occupational Therapy [facility] Inpatient Treatment SUBJECTIVE Patient's Name: Kalen Vega Referring/Attending Provider: Boubacar Brock M.D. Reason for Referral: Occupational Therapy Evaluation and Treatment History of Present Illness: Kalen Vega is a 83 y.o. male who was admitted to [facility] in [place] on 08/13/2023 for Hematuria [R31.9]. Precautions Other [...] at or below 17 Clinicians answer the AM-[facility] Inpatient Short Form based on [...] in place draining clear pink urine I/O ([id number]): NG tube 200 cc Two hundred sixty-five [...] locallyfor CBI. He was subsequently transferred to [facility] 08/12 for difficulty irrigating his catheter [...] held since 08/11) -[facility]ed [facility] regarding ongoing anticoagulation/antiplatelet. Theyfelt he [...] questions or concerns. Pager during business hours: [phone] Pager after hours: [phone] * Audi De Luna P.T., D.P.T. - [...] in place draining clear pink urine I/O ([id number]): NG tube 200 cc Two hundred sixty-five [...] locallyfor CBI. He was subsequently transferred to [facility] 08/12 for difficulty irrigating his catheter [...] questions or concerns. Pager during business hours: [phone] Pager after hours: [phone] * Paula Hernandez M.D. - 08/15/2023 9:09 AM CDT PROGRESS NOTE: No events. AFVSS. Pain controlled. No flatus. No further emesis overnight. Abdomen more distended than yesterday but remained soft, tender to deep palpation only, no rebound. Twenty-four Kazakh Alcock three-way catheter remains off CBI, draining [...] for CBI. He was subsequently transferred to [facility] 08/12 for difficulty irrigating his catheter [...] risks associated with surgery and anesthesia including IA, stroke, and VTE were also discussed. Finally, [...] was discussed with Dr. Brock, urology technical sales consultant on-call who is in agreement with [...] Family to bring his home enzalutamide from [place] Irvin Franco Pharm.D., R.Ph. * Jakob De Paz M.D. - 08/14/2023 11:34 AM CDT PROGRESS NOTE: No events. AFVSS. Pain controlled. No flatus. Nauseous and had 2 episodes of emesis. Abdomen more distended than yesterday but remained soft, tender to deep palpation only, no rebound. Twenty-four Kazakh Alcock three-way catheter remains off CBI, draining [...] for CBI. He was subsequently transferred to [facility] 08/12 for difficulty irrigating his catheter [...] was discussed with Dr. Brock, urology technical sales consultant on-call who is in agreement with [...] Patient discussed with Dr. Sylvester. Page CCM3 [id number] Carlos Alberto Henson M.D. PGY-1 CCM 3 [...] who have asked we place a 24 Kazakh 3-way urinary catheter pending evaluation. We will [...] and hematuria who is transferred from [facility] ED with 3 days of [...] him to present to local hospital in [place]. OSH Course: His hemoglobin was in the [...] Insecurity: No Food Insecurity (02/16/2022) [facility] from [facility] Food Insecurity Worried About Running Out of Food in the Last Year: 1 Transportation Needs: No Transportation Needs (02/16/2022) [facility] Transportation Needs Lack of Transportation (Medical): 1 Housing Stability: Low Risk (02/16/2022) [facility] Housing Stability Unable to Pay for Housing [...] Dr. Sylvester and Dr. Rodriguez. Page CCM3 [id number] Carlos Alberto Henson M.D. PGY-1 CCM 3 [...] As expected PRIMARY PROCEDURALIST FAY Cerna MD [phone] ASSISTANTS none COMPLICATIONS None. DRAINS None. IMPLANTS [...] peripheral vein targets. Ultrasound used for assessment: [employer] Fit Provider contacted (include name): Uro Surg [...] STENT EXCHANGE; Surgeon: Boubacar Brock M.D.; Location: [facility] ROMB OR FAMILY HISTORY No [...] 14 -- AST U/L 25 -- Radiology: @[id number]@ Swallow Assessment: No data to display ASSESSMENT / PLAN #1 Hematuria ASSESSMENT Currently we are asked to visit with Mr. Vega for consideration of parenteral nutrition. Nutrition Needs: Height: 180 cm Admission Weight: 91.2 kg (08/13/2023) Current Weight: 90.2 kg BMI (Calculated): 27.8 kg/m?? Total Calorie Needs: 7450-8972 calories/day Method to Estimate Energy Needs: Garcia-Wesco ( ) Weight Used for Equation Calculations: [...] on electrolytes Please call NSS pager at [phone] at [facility] or [phone] at [facility] with any additional questions. * Gilbert Johnson [...] values in this interval not displayed. Radiology: @[id number]@ Swallow Assessment: No data to display ASSESSMENT / PLAN #1 Hematuria ASSESSMENT Currently we are asked to visit with Mr. Vega for consideration of parenteral nutrition. Nutrition Needs: Height: 180 cm Admission Weight: 91.2 kg (08/13/2023) Current Weight: 90.2 kg BMI (Calculated): 27.8 kg/m?? Total Calorie Needs: 3439-1557 calories/day Method to Estimate Energy Needs: kcal/kg [...] on electrolytes Please call NSS pager at [phone] at [facility] or [phone] at [facility] with any additional questions. BILLING/CODING Total visit [...] stent along with other stents and apparently mailroom messenger in the past I recommended indefinite dual [...] in the history of present illness. @[facility] OBJECTIVE Current Facility-Administered Medications: acetaminophen tablet [...] 20 mL/hr, intravenous, Continuous, Frieda Garner APRN, LOOM SETTER FOURDRINIER, Last Rate: 20 mL/hr at 08/15/23 1459, [...] but he can discuss this with his mailroom messenger at home. We need to balance transfusion needs for continued bleedingand risk of recurrent IA if not on Plavix-coronary stents were 6 [...] 83 y.o. male who was admitted to [facility] in [place] on 08/13/2023 for Hematuria [R31.9]. Relevant Medical History: Kalen Vega is a 83 y.o. 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 Basic Mobility (V.2) Raw Score: 17 -[facility] Basic Mobility (V.2) Standardized Score: 39.67 Interpretation: Based on scoring guidelines using the raw score value: Those going to home had an average score at or above 18 Those going to facility had an average score at or below 17 Clinicians answer the [facility] Inpatient Short Form based on observed [...] following coordination of care occurred with the miner helper/Caregiver Present: SonFavio Patient was left in [...] 83 y.o. male who was admitted to [facility] in [place] on 08/13/2023 for Hematuria with cystotomy and [...] Min assist for mobility. Required assist for gib-li-nmens for force generation and is generally standby [...] Ongoing PT Goal #2: Patient will perform swk-ts-btslo transfer with modified independence and least restrictive [...] 83 y.o. male who was admitted to [facility] in [place] on 08/13/2023 for Hematuria [R31.9]. Relevant Medical [...] with RN, PT Family/Caregiver Present: Son and ryeqjnis-ph-zlc. Home Living and Equipment: Lives with: Spouse/Significant [...] walker, Single point cane Adaptive Equipment Owned: Iuss Analyst, Long Handled Shoe Horn Other DME Owned: Regular flat bed Prior Level of Function and Mobility: Basic Activities of Daily Living: Independent Instrumental Activities of Daily Living: Required Assistance: Laundry son assists with laundry and cooking Functional Mobility: Independent Driving: Yes Occupational Role: Retired Leisure Interests: watch movies, plays [employer] train, meets friends for breakfast. Patient/Caregiver Goals: [...] glasses all the time Outcome Measures: [facility] Inpatient Short Form: Putting on and [...] or below 17 Clinicians answer the [facility] Inpatient Short Form based on observed [...] all are a great support. 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 Patient expressed understanding and was agreeable to [...] conversation with his family when social media coordinator entered the room. He was engaged in [...] locally at approximately 3:00 a.m. a 22 Kazakh three-way catheter was placed and CBI wasinitiated. Unfortunately he clotted off the catheter multiple times despite manual irrigations, started to develop hypotension and tachycardia [facility] He relays the above [...] non-distended, non-peritonitic Extremities: No edema : 22 Kazakh three-way Tabares catheter draining a minimal amount [...] urinary retention Given his non draining 22 Kazakh three-way catheter the Urology techs and I subsequently exchanged this for a 24 Kazakh three-way Alcock in the usual sterile fashion. [...] to follow [place] [phone] with questions or concerns Sixto Cain M.D. [...] peripheral vein targets. Ultrasound used for assessment: [employer] VenSnipi Fit Provider contacted (include name): Uro Surg [...] Note Patient transferred to: [facility] Room: [facility] Accompanied by: [...] signs? YES * Sixto Teague R.R.T., L.R.T., BOOT TRIMMER-[facility] - 08/14/2023 7:00 AM CDT Patient [...] the last 24hours. 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 His existing 24 Kazakh three-way Tabares catheter was noted to be [...] additional tissue for additional coverage. A 24 Kazakh three-way catheter was placed with 15 cc in the balloon. This irrigated to light clear pink. A 15 Kazakh YARELI drain wasplaced into the pelvis exiting left lower quadrant. The fascia was closed with interrupted and [id number]-vb-[id number] 0 PDS. Fat was approximated using 3-0 [...] RN, CPN, CCDS, CCS, CRC Clinical Documentation Leaf Sucker Operator Query created by: ELMER Barker, RN, [...] stent and hematuria who is transferred from [place] ED with 3 days of hematuria & [...] RN, CPN, CCDS, CCS, CRC Clinical Documentation Leaf Sucker Operator Query created by: ELMER Barker, RN, [...] he felt completely obstructed and presented to [place] ED. [place] Course Attempted Tabares insertion but bladder irrigation was unsuccessful on multiple attempts. Hung 1U pRBC's. Given some volume and transferred to [facility] ICU ICU Course Urology consulted and [...] CDT Procedure visit Department of Urology in [place], [place] [address] [place] [id number] Paula Hernandez M.D. [address] [place] [address] Pending Results Name Type Priority Associated Diagnoses [...] Antibody ID) (08/26/2023 6:50 AM CDT) Pathologist [facility] ABORh O Pos Not applicable 08/26/2023 7:16 AM CDT STRM Antibody Screen Negative Negative 08/26/2023 7:29 AM CDT STRM Type & Screen Expiration 08/29/2023 23:59 08/26/2023 7:16 AM CDT STRM Testing Location [place] DEFAULT 08/26/2023 6:57 AM CDT STRM Blood (Blood, Venous) 08/26/2023 6:50 AM CDT 08/26/2023 6:57 AM CDT Narrative Authorizing Provider Result Abdifatah Hernandez M.D. LAB BLOOD BANK TEST ORDERABLES [facility] [address] [place] [address], [facility] [address] [place] [address] * (ABNORMAL) CBC without Differential (08/26/2023 3:20 [...] CDT Corin Ring M.D. LAB BLOOD ADD-ON [facility] [address] [place] [address], [facility] [address] [place] [address] * Magnesium (08/26/2023 3:20 AM CDT) Magnesium, S 2.1 1.7 - 2.3 mg/dL 08/26/2023 4:04 AM CDT DTL Blood (Blood, Venous) 08/26/2023 3:20 AM CDT 08/26/2023 3:50 AM CDT Boubacar Brock M.D. LAB BLOOD ADD-ON [facility] 200 [place] [address], [facility] DTL [facility] 200 [place] [address] * (ABNORMAL) Renal Function Panel (08/26/2023 3:20 [...] CDT Boubacar Brock M.D. LAB BLOOD ADD-ON [facility] 200 [place] [address], [facility] 200 [place] [address] * Heparin Anti-Xa Assay (08/26/2023 3:20 AM CDT) [facility] Heparin Anti-Xa, P 0.26 IU/mL [...] Hoyt M.D. LAB BLOOD NON ADD -ON [facility] 200 [place] [address], [facility] [address] [place] [address] * (ABNORMAL) CBC without Differential (08/25/2023 3:24 AM CDT) [facility] Hemoglobin 8.3(L) 13.2 - 16.6 [...] CDT Corin Ring M.D. LAB BLOOD ADD-ON [facility] [address] [place] [address], [facility] [address] [place] [address] * (ABNORMAL) Renal Function Panel (08/25/2023 3:24 AM CDT) Pathologist [facility] Potassium, S 4.1 3.6 - 5.2 [...] LAB BLOOD ADD-ON Performing Organization Address [facility]/ZIP Co de Phone Number [facility] 200 [place] [address] * Magnesium (08/25/2023 3:24 AM CDT) Magnesium, S 2.2 1.7 - 2.3 mg/dL 08/25/2023 4:36 AM CDT DTL Blood (Blood, Venous) 08/25/2023 3:24 AM CDT 08/25/2023 4:19 AM CDT Boubacar Brock M.D. LAB BLOOD ADD-ON Performing Organization Address [facility] Co de Phone Number [facility] 200 [place] [address], [place] [address] * Heparin Anti-Xa Assay (08/25/2023 3:24 AM [...] LAB BLOOD NON ADD-ON Performing Organization Address City/[facility]/ZIP Co de Phone Number [facility] [address] [place] [address], [facility] DTL [facility] [address] [place] [address] * (ABNORMAL) CBC without Differential (08/24/2023 5:28 [...] M.D. LAB BLOOD ADD-ON Performing Organization Address City/[facility]/ZIP Co de Phone Number [facility] [address] [place], [place] [address] 200 [place] [address] * Magnesium (08/24/2023 5:28 AM CDT) Magnesium, S 2.3 1.7 - 2.3 mg/dL 08/24/2023 6:19 AM CDT DTL Blood (Blood, Venous) 08/24/2023 5:28 AM CDT 08/24/2023 6:00 AM CDT Boubacar Brock M.D. LAB BLOOD ADD-ON [facility] [address] [address] * (ABNORMAL) Renal Function Panel (08/24/2023 5:28 [...] LAB BLOOD ADD-ON Performing Organization Address [facility]/ZIP Co de Phone Number [facility] [address] [place] [address] * Heparin Anti-Xa Assay (08/24/2023 5:28 AM [...] LAB BLOOD NON ADD-ON Performing Organization Address City/[facility]/ZIP Co de Phone Number [facility] [address] [place], [place] [phone] [place] [address] [facility] 200 [place] [address] * (ABNORMAL) Potassium (08/23/2023 9:58 PM CDT) Pathologist [facility] Potassium, S 3.5(L) 3.6 - 5.2 mmol/L 08/23/2023 10:45 PM CDT DT Blood (Blood, Venous) 08/23/2023 9:58 PM CDT 08/23/2023 10:30 PM CDT Boubacar Brock M.D. LAB BLOOD ADD-ON [facility] [address] [place], [place] [phone] [place] [address] 200 [place] [address] * (ABNORMAL) Phosphorus Inorganic (08/23/2023 9:58 PM CDT) [facility] Phosphorus (Inorganic), S 2.1(L) 2.5 - 4.5 mg/dL 08/23/2023 10:45 PM CDT DT Blood (Blood, Venous) 08/23/2023 9:58 PM CDT 08/23/2023 10:30 PM CDT Paula Hernandez M.D. LAB BLOOD ADD-ON [facility] [address] [place], [place] [phone] [place] [address] 200 [place] [address] * Heparin Anti-Xa Assay (08/23/2023 11:37 AM CDT) [facility] Heparin Anti-Xa, P 0.51 IU/mL [...] BLOOD NON ADD-ON Performing Organization Address [facility] Co de Phone Number [facility] [address] [place] [address], [facility] 200 [place] [address] * (ABNORMAL) CBC without Differential (08/23/2023 3:42 [...] M.D. LAB BLOOD ADD-ON Performing Organization Address City/[facility] Co de Phone Number [facility] [address] [place], [place] [phone] [place] [address] 200 [place] [address] * Triglycerides (08/23/2023 3:42 AM CDT) Triglycerides [...] LAB BLOOD ADD-ON Performing Organization Address [facility] Co de Phone Number [facility] [address] [place], [place] [phone] [place] [address] 200 [place] [address] * Magnesium (08/23/2023 3:42 AM CDT) Pathologist [facility] Magnesium, S 2.2 1.7 - 2.3 mg/dL 08/23/2023 4:50 AM CDT DTL Blood (Blood, Venous) 08/23/2023 3:42 AM CDT 08/23/2023 4:19 AM CDT Boubacar Brock M.D. LAB BLOOD ADD-ON Performing Organization Address City/[facility]/ZIP Co de Phone Number [facility] [address] [place] [address] * (ABNORMAL) Renal Function Panel (08/23/2023 3:42 AM CDT) Pathologist [facility] Potassium, S 3.1(L) 3.6 - 5.2 [...] CDT Boubacar Brock M.D. LAB BLOOD ADD-ON [facility] [address] [place] [address], [facility] [address] [place] [address] * Heparin Anti-Xa Assay (08/23/2023 3:41 AM [...] LAB BLOOD NON ADD-ON Performing Organization Address City/[facility]/ZIP Co de Phone Number [facility] [address] [place] [address], [facility] DTL [facility] [address] [place] [address] * Glucose, POCT (08/22/2023 11:38 PM CDT) [facility] Glucose, POCT, B 117 70 - 140 mg/dL 08/23/2023 1:06 AM CDT PCLX Site Capillary 08/23/2023 1:06 AM CDT PCLX Last Intake NPO 08/23/2023 1:06 AM CDT PCLX Blood 08/22/2023 11:3 8 PM CDT 08/23/2023 1:06 AM CDT Unknown Provider LAB POCT ORDERABLES- MANUAL POC [facility] [address] [place] [address], [facility] PCLX [facility] POC [address] [place] [address] * Heparin Anti-Xa Assay (08/22/2023 10:14 PM CDT) [facility] Heparin Anti-Xa, P 0.50 IU/mL [...] Boubacar Brock M.D. LAB BLOOD NON ADD-ON [facility] [address] DTL [facility] [address] [place] [address] * CT Abdomen Pelvis without IV Contrast [...] colon likelyrepresenting mild proctocolitis. Paula Hernandez M.D. [facility] CT PROCEDURES * Heparin Anti-Xa Assay (08/22/2023 [...] Boubacar Brock M.D. LAB BLOOD NON ADD-ON [address] [place] [address] * Creatinine, Body Fluid (08/22/2023 3:30 PM [...] transport rates. All other fluids refer to www.[employer].com for further interpretive information. This test has been modified from the court collections officer's instructions. Its performance characteristics were determined by [facility] in a manner consistent with CLIA requirements. This test has not been cleared or approved by the U.S. Food and Drug Administration. Fluid Type, Creatinine Fluid, Abdomen 08/22/2023 3:52 PM CDT DTL Fluid (Abdomen) 08/22/2023 3 :30 PM CDT 08/22/2023 6:36 PM CDT Corin Ring M.D. LAB BODY FLUIDS AND STOOLS ORDERABLES [facility] [address] [place] [address], [place] DTL [facility] [address] [place] [address] * Transfuse Red Blood Cells : (08/22/2023 [...] M.D. LAB BLOOD ADD-ON Performing Organization Address City/[facility] Co de Phone Number [facility] [address] [place] [address], [facility] 200 [place] [address] * Type and Screen (with Reflex Antibody ID) (08/22/2023 2:55 AM CDT) [facility] ABORh O Pos Not applicable 08/22/2023 3:25 AM CDT STRM Antibody Screen Negative Negative 08/22/2023 3:38 AM CDT STRM Type & Screen Expiration 08/25/2023 23:59 08/22/2023 3:25 AM CDT STRM Testing Location [place] DEFAULT 08/22/2023 3:07 AM CDT STRM Blood (Blood, Venous) 08/22/2023 2:55 AM CDT 08/22/2023 3:07 AM CDT Latisha Whitehead M.D. LAB BLOOD BANK T EST ORDERABLES Performing Organization Address [facility] Co de Phone Number [facility] 200 [place] [address], [facility] STRM [facility] [address] [place] [address] * (ABNORMAL) Comprehensive Metabolic Panel (08/22/2023 2:40 AM CDT) Pathologist [facility] Potassium, S 3.2(L) 3.6 - 5.2 mmol/L [...] CDT Latisha Whitehead M.D. LAB BLOOD ADD-ON [facility] [address] [place] [address], [facility] DTL [facility] [address] [place] [address] * Heparin Anti-Xa Assay (08/22/2023 2:40 AM CDT) Pathologist [facility] Heparin Anti-Xa, P 0.47 IU/mL 2023 3:28 [...] BLOOD NON AD D-ON Performing Organization Address City/[facility]/ZIP Co de Phone Number [facility] 200 [place] [address], [facility] 200 [place] [address] * (ABNORMAL) APTT (Activated Partial Thromboplastin Time) (08/22/2023 2:40 AM CDT) Pathologist [facility] Activated Partial Thrombopl Time, P 64(H) 25 - 37 sec 08/22/2023 3:12 AM CDT STMA Blood (Blood, Venous) 08/22/2023 2:40 AM CDT 08/22/2023 3:01 AM CDT Latisha Whitehead M.D. LAB BLOOD ADD-ON Performing Organization Address City/[facility]/ZIP Co de Phone Number [facility] [address] [place] [address], [facility] STMA [facility] [address] [place] [address] * Triglycerides (08/21/2023 7:32 AM CDT) Triglycerides [...] LAB BLOOD ADD-O N Performing Organization Address City/[facility]/ZIP Co de Phone Number [facility] [address] [facility] 200 [place] [address] * Phosphorus Inorganic (08/21/2023 7:32 AM CDT) Phosphorus (Inorganic), S 2.6 2.5 - 4.5 mg/dL 08/21/2023 9:03 AM CDT DT Blood (Blood, Venous) 08/21/2023 7:32 AM CDT 08/21/2023 8:38 AM CDT Lizette Harvey M.D. LAB BLOOD ADD-O N [facility] 200 [place] [address] * Magnesium (08/21/2023 7:32 AM CDT) Magnesium, S 2.3 1.7 - 2.3 mg/dL 08/21/2023 9:03 AM CDT DTL Blood (Blood, Venous) 08/21/2023 7:32 AM CDT 08/21/2023 8:38 AM CDT Lizette Harvey M.D. LAB BLOOD ADD-O N [facility] [address] [place] [address], [facility] DTL [facility] [address] [place] [address] * (ABNORMAL) Basic Metabolic Panel (08/21/2023 7:32 [...] Lizette Harvey M.D. LAB BLOOD ADD-O N [facility] [address] [place] [address], [facility] [address] [place] [address] * (ABNORMAL) CBC without Differential (08/21/2023 7:32 [...] Lizette Harvey M.D. LAB BLOOD ADD-O N [facility] [address] [place] [address], [facility] [address] [place] [address] * Heparin Anti-Xa Assay (08/21/2023 7:32 AM CDT) Pathologist [facility] Heparin Anti-Xa, P 0.49 IU/mL 2023 8:31 [...] LAB BLOOD NON ADD-ON Performing Organization Address City/[facility]/ZIP Co de Phone Number [facility] [address] [place], [place] [address] [place] [address] * (ABNORMAL) APTT (Activated Partial Thromboplastin Time) (08/21/2023 7:32 AM CDT) [facility] Activated Partial Thrombopl Time, P 49(H) 25 - 37 sec 08/21/2023 8:31 AM CDT DT Blood (Blood, Venous) 08/21/2023 7:32 AM CDT 08/21/2023 8:06 AM CDT Boubacar Brock M.D. LAB BLOOD ADD-ON [facility] [address] [place], [place] [id number] [place] [address] 200 [place] [address] * Place peripherally inserted central catheter (PICC) [...] the atrophic right kidney. Lizette Harvey M.D. [facility] CT PROCEDUR ES * (ABNORMAL) Basic Metabolic Panel (08/20/2023 3:19 AM CDT) [facility] Potassium, S 3.7 3.6 - [...] LAB BLOOD ADD-ON Performing Organization Address [facility]/ZIP Co de Phone Number [facility] [address] [place] [address], [facility] DTL [facility] 200 [place] [address] * (ABNORMAL) CBC without Differential (08/20/2023 3:19 [...] CDT Paula Hernandez M.D. LAB BLOOD ADD-ON [facility] [address] 200 [place] [address] * (ABNORMAL) APTT (Activated Partial Thromboplastin Time) (08/20/2023 3:19 AM CDT) Pathologist [facility] Activated Partial Thrombopl Time, P 52(H) 25 - 37 sec 08/20/2023 4:33 AM CDT DTL Blood (Blood, Venous) 08/20/2023 3:19 AM CDT 08/20/2023 4:10 AM CDT Boubacar Brock M.D. LAB BLOOD ADD-ON [facility] [address] 200 [place] [address] * (ABNORMAL) APTT (Activated Partial Thromboplastin Time) (08/19/2023 10:57 AM CDT) [facility] Activated Partial Thrombopl Time, P 54(H) 25 - 37 sec 08/19/2023 11:44 AM CDT DT Blood (Blood, Venous) 08/19/2023 10:57 AM CDT 08/19/2023 11:26 AM CDT Boubacar Brock M.D. LAB BLOOD ADD-ON [facility] 200 [place] [address] * (ABNORMAL) APTT (Activated Partial Thromboplastin Time) (08/19/2023 4:51 AM CDT) [facility] Activated Partial Thrombopl Time, P 59(H) 25 - 37 sec 08/19/2023 5:53 AM CDT DTL Blood (Blood, Venous) 08/19/2023 4:51 AM CDT 08/19/2023 5:36 AM CDT Boubacar Brock M.D. LAB BLOOD ADD-ON [facility] [address] [place] [address] * (ABNORMAL) APTT (Activated Partial Thromboplastin Time) (08/18/2023 10:03 PM CDT) [facility] Activated Partial Thrombopl Time, P 63(H) 25 - 37 sec 08/18/2023 10:41 PM CDT DTL Blood (Blood, Venous) 08/18/2023 10:03 PM CDT 08/18/2023 10:19 PM CDT Boubacar Brock M.D. LAB BLOOD ADD-ON Performing Organization Address City/[facility]/ZIP Co de Phone Number [facility] [address] 200 [place] [address] * (ABNORMAL) APTT (Activated Partial Thromboplastin Time) (08/18/2023 2:50 PM CDT) [facility] Activated Partial Thrombopl Time, P 64(H) 25 - 37 sec 08/18/2023 3:25 PM CDT DT Blood (Blood, Venous) 08/18/2023 2:50 PM CDT 08/18/2023 3:07 PM CDT Boubacar Brock M.D. LAB BLOOD ADD-ON [facility] [address] [place] [address] * (ABNORMAL) APTT (Activated Partial Thromboplastin Time) (08/18/2023 6:42 AM CDT) [facility] Activated Partial Thrombopl Time, P 61(H) 25 - 37 sec 08/18/2023 7:28 AM CDT DTL Blood (Blood, Venous) 08/18/2023 6:42 AM CDT 08/18/2023 7:04 AM CDT Boubacar Brock M.D. LAB BLOOD ADD-ON Performing Organization Address City/[facility]/ZIP Co de Phone Number [facility] 200 [place] [address], [facility] 200 [place] [address] * (ABNORMAL) APTT (Activated Partial Thromboplastin Time) (08/17/2023 11:04 PM CDT) Pathologist [facility] Activated Partial Thrombopl Time, P 40(H) 25 - 37 sec 08/17/2023 11:46 PM CDT DTL Blood (Blood, Venous) 08/17/2023 11:04 PM CDT 08/17/2023 11:31 PM CDT Boubacar Brock M.D. LAB BLOOD ADD-ON Performing Organization Address [facility] Co de Phone Number [facility] [address] [place] [address], [address] [address] * US Lower Extremity Veins Bilateral (08/17/2023 [...] and management can be found on the [employer] site. Link [email or web address]/[email or web address] Findings discussed with ??Tayler Greenwood, ?? ([id number]) on 08/17/2023 7:11 PM. Procedure Note Jj [...] be found on theAskMayoExpert site. [email or web address]/clinical-[email or web address]/[email or web address] 1725 Findings discussed with Tayler Greenwood MD ([id number]) on 08/17/2023 7:11 PM. IMPRESSION: 1. 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 2. No acute left-sided DVT. Corin Ring M.D. IM US PROCEDURES * APTT (Activated Partial Thromboplastin Time) (08/17/2023 4:56 PM CDT) [facility] Activated Partial Thrombopl Time, P 29 25 - 37 sec 08/17/2023 5:10 PM CDT [facility] Blood (Blood, Venous) 08/17/2023 4:56 PM CDT 08/17/2023 5:00 PM CDT Paula Hernandez M.D. LAB BLOOD ADD-ON [facility] [address] [place] [address], [facility] [address] [place] [address] * ECG 12 Lead (08/16/2023 9:43 PM CDT) Pathologist [facility] Ventricular Rate ECG/Min 134 BPM MUSE VA Interval 136 ms MUSE QRSD Interval 76 ms MUSE QT Interval 298 ms MUSE QTC Interval 445 ms MUSE P [place] 29 degrees MUSE R [place] -6 degrees MUSE T Wave [place] 21 degrees MUSE 08/16/2023 9:43 PM CDT [...] without Differential (08/16/2023 9:40 PM CDT) Pathologist [facility] Hemoglobin 8.8(L) 13.2 - 16.6 g/dL 08/16/2023 [...] CDT Geneva Azar M.D. LAB BLOOD ADD-ON [facility] [address] [place] [address], [facility] DTL [facility] [address] [place] [address] * (ABNORMAL) Basic Metabolic Panel (08/16/2023 9:40 [...] CDT Geneva Azar M.D. LAB BLOOD ADD-ON [facility] [address] [place] [address], [place] DTL [facility] [address] [place] [address] * Transfuse Red Blood Cells : (08/16/2023 12:04 PM CDT) Corin Ring M.D. BLOOD TRANSFUSION OR DERABLES * Transfuse Red Blood Cells : , 1 Units (08/16/2023 12:04 PM CDT) Corin Ring M.D. BLOOD TRANSFUSION OR DERABLES * (ABNORMAL) Basic Metabolic Panel (08/16/2023 3:10 AM CDT) [facility] Potassium, S 4.2 3.6 - [...] CDT Paula Hernandez M.D. LAB BLOOD ADD-ON [facility] 200 [place] [address], [facility] 200 [place] [address] * (ABNORMAL) CBC without Differential (08/16/2023 3:10 [...] CDT Paula Hernandez M.D. LAB BLOOD ADD-ON [facility] 200 [place] [address], [facility] 200 [place] [address] * (ABNORMAL) CBC with Differential, Blood (08/15/2023 [...] Carlos Alberto Henson M.D. LAB BLOOD ADD-ON [facility] [address] [place] [address], [place] DTL [facility] [address] [place] [address] [facility] [address] [place] [address] * DX Abdomen 1 View (08/15/2023 1:19 [...] CDT 08/15/2023 12:03 PM CDT Rae Gonzalez DRY COLOR TESTER, LOOM SETTER FOURDRINIER, DNAP LAB BLOO D NON ADD-ON [facility] [address] [place] [address], [facility] [address] [place] [address] * Lactate, B - Intra-op (08/15/2023 11:56 AM CDT) Lactate, B 1.1 0.5 - 2.2 mmol/L 08/15/2023 12:06 PM CDT STMA Blood (Blood, Venous) 08/15/2023 11:56 AM CDT 08/15/2023 12:03 PM CDT Hayde Song M.D. LAB BLOOD NON ADD-O N Performing Organization Address City/[facility]/ZIP Co de Phone Number [facility] [address] [place] [address], [facility] 200 [place] [address] * (ABNORMAL) Glucose, Whole Blood (08/15/2023 11:56 AM CDT) Glucose 144(H) 70 - 140 mg/dL 08/15/2023 12:06 PM CDT [facility] Blood (Blood, Arterial Line) 08/15/2023 11:56 AM CDT 08/15/2023 12:03 PM CDT Hayde Song M.D. LAB BLOOD ADD-ON Performing Organization Address [facility]/ZIP Co de Phone Number [facility] [address] [place] [address], [facility] 200 [place] [address] * Potassium, Blood (08/15/2023 11:56 AM CDT) Potassium, B 4.3 3.6 - 5.2 mmol/L 08/15/2023 12:07 PM CDT [facility] Blood (Blood, Arterial Line) 08/15/2023 11:56 AM CDT 08/15/2023 12:03 PM CDT Hayde Song M.D. LAB BLOOD NON ADD-O N [facility] 200 [place] [address], [facility] 200 [place] [address] * Sodium, B (08/15/2023 11:56 AM CDT) Sodium, B 135 135 - 145 mmol/L 08/15/2023 12:06 PM CDT STMA Blood (Blood, Arterial Line) 08/15/2023 11:56 AM CDT 08/15/2023 12:03 PM CDT Hayde Song M.D. LAB BLOOD NON ADD-O N Performing Organization Address City/[facility]/ZIP Co de Phone Number [facility] [address] [place] [address] * (ABNORMAL) Calcium, Ionized (08/15/2023 11:56 AM CDT) Calcium, Ionized, B 4.53(L) 4.65 - 5.30 mg/dL 08/15/2023 12:07 PM CDT STMA Blood (Blood, Arterial Line) 08/15/2023 11:56 AM CDT 08/15/2023 12:03 PM CDT Hayde Song M.D. LAB BLOOD NON ADD-O N Performing Organization Address City/[facility]/ZIP Co de Phone Number [facility] [address] [place], [place] [address] [place] [address] 200 [place] [address] * (ABNORMAL) Blood Gas with Coox, Arterial [...] BLOOD NON ADD-O N Performing Organization Address City/[facility]/ZIP Co de Phone Number [facility] [address] STMA [facility] [address] [place] [address] * [place] Fluoro Less Than 1 Hour [...] CDT 08/15/2023 10:28 AM CDT Rae Gonzalez DRY COLOR TESTER, LOOM SETTER FOURDRINIER, DNAP LAB BLOO D NON ADD-ON [facility] [address] [place] [address], [facility] [address] [place] [address] * Lactate, B - Intra-op (08/15/2023 10:28 AM CDT) Lactate, B 1.1 0.5 - 2.2 mmol/L 08/15/2023 10:30 AM CDT STMA Blood (Blood, Venous) 08/15/2023 10:28 AM CDT 08/15/2023 10:28 AM CDT Hayde Song M.D. LAB BLOOD NON ADD-O N Performing Organization Address City/[facility]/ZIP Co de Phone Number [facility] [address] [place] [address], [facility] 200 [place] [address] * Glucose, Whole Blood (08/15/2023 10:28 AM CDT) Glucose 134 70 - 140 mg/dL 08/15/2023 10:30 AM CDT [facility] Blood (Blood, Arterial Line) 08/15/2023 10:28 AM CDT 08/15/2023 10:28 AM CDT Hayde Song M.D. LAB BLOOD ADD-ON [facility] [address] [place] [address], [facility] [address] [place] [address] * Potassium, Blood (08/15/2023 10:28 AM CDT) Potassium, B 4.1 3.6 - 5.2 mmol/L 08/15/2023 10:31 AM CDT STMA Blood (Blood, Arterial Line) 08/15/2023 10:28 AM CDT 08/15/2023 10:28 AM CDT Hayde Song M.D. LAB BLOOD NON ADD-O N [facility] [address] [place], [place] [address] [place] [address] 200 [place] [address] * Sodium, B (08/15/2023 10:28 AM CDT) Sodium, B 135 135 - 145 mmol/L 08/15/2023 10:30 AM CDT STMA Blood (Blood, Arterial Line) 08/15/2023 10:28 AM CDT 08/15/2023 10:28 AM CDT Hayde Song M.D. LAB BLOOD NON ADD-O N [facility] [address] [place], [place] [address] 200 [place] [address] * (ABNORMAL) Calcium, Ionized (08/15/2023 10:28 AM CDT) Calcium, Ionized, B 4.25(L) 4.65 - 5.30 mg/dL 08/15/2023 10:31 AM CDT STMA Blood (Blood, Arterial Line) 08/15/2023 10:28 AM CDT 08/15/2023 10:28 AM CDT Hayde Song M.D. LAB BLOOD NON ADD-O N [facility] [address] [place], [place] [address] [address] [place] [address] * (ABNORMAL) Blood Gas with Coox, Arterial [...] Song M.D. LAB BLOOD NON ADD-O N [facility] [address] [place] [address], [facility] [address] [place] [address] * Bacteria / Yomaira Culture, Blood #2 (08/15/2023 3:33 AM CDT) Pathologist [facility] Bacteria/Leyla da Culture, Blood No growth after 5 days of incubation. 08/20/2023 6:02 AM CDT DTL Blood (Blood, Peripheral Draw) 08/15/2023 3:33 AM CDT 08/15/2023 5:58 AM CDT Comment:Specimen Source Site : Blood Narrative [facility] - 08/20/2023 6:02 AM CDT Received Bactec aerobic and Bactec anaerobic bottles Carlos Alberto Henson M.D. LAB MICROBIOLOGY - [facility] ORDERABLES [facility] [address] [place] [address], [facility] DTL [facility] [address] [place] [address] * (ABNORMAL) Basic Metabolic Panel (08/15/2023 3:31 AM CDT) Pathologist [facility] Potassium, S 4.0 3.6 - 5.2 mmol/L [...] M.D. LAB BLOOD ADD-ON Performing Organization Address City/[facility]/[place] [address] * Bacteria / Yomaira Culture, Blood #1 (08/15/2023 3:31 AM CDT) [facility] Bacteria/Leyla da Culture, Blood No growth after 5 days of incubation. 08/20/2023 6:02 AM CDT DTL Blood (Blood, Peripheral Draw) 08/15/2023 3:31 AM CDT 08/15/2023 5:59 AM CDT Comment:Specimen Source Site : Blood Carlos Alberto Henson M.D. LAB MICROBIOLOGY - G ENERAL ORDERABLES Performing Organization Address [facility] Co de Phone Number [facility] [address] [place] [address] * (ABNORMAL) CBC with Differential, Blood (08/15/2023 3:30 AM CDT) [facility] Hemoglobin 9.5(L) 13.2 - 16.6 [...] Carlos Alberto Henson M.D. LAB BLOOD ADD-ON [facility] [address] [place] [address], [facility] DTL [facility] [address] [place] [address] [facility] 200 [place] [address] * (ABNORMAL) CBC with Differential, Blood (08/14/2023 8:08 PM CDT) [facility] Hemoglobin 9.8(L) 13.2 - 16.6 [...] Carlos Alberto Henson M.D. LAB BLOOD ADD-ON [facility] [address] [place] [address], [facility] STMA [facility] [address] [place] [address] [facility] [address] [place] [address] * Transfuse Red Blood Cells : , [...] Carlos Alberto Henson M.D. LAB BLOOD ADD-ON [facility] [address] [place] [address], [facility] STMA [facility] [address] [place] [address] [facility] [address] [place] [address] * (ABNORMAL) Basic Metabolic Panel (08/14/2023 3:18 [...] Carlos Alberto Henson M.D. LAB BLOOD ADD-ON [facility] [address] [place] [address], [place] [facility] 200 [place] [address] * Type and Screen (with Reflex Antibody ID) (08/13/2023 7:35 PM CDT) [facility] ABORh O Pos Not applicable 08/13/2023 7:58 PM CDT STRM Antibody Screen Negative Negative 08/13/2023 8:13 PM CDT STRM Type & Screen Expiration 08/16/2023 23:59 08/13/2023 7:58 PM CDT STRM Testing Location [place] DEFAULT 08/13/2023 7:39 PM CDT STR Blood (Blood, Venous) 08/13/2023 7:35 PM CDT 08/13/2023 7:39 PM CDT Carlos Alberto Henson M.D. LAB BLOOD BANK TEST ORDERABLES [facility] [address] [place] [address], [facility] 200 [place] [address] * (ABNORMAL) Bacteria / Yomaira Culture, Blood #1 (08/13/2023 7:35 PM CDT) [facility] Bacteria/Cand jessica Culture, Blood ESCHERICHIA COLI Growth after 11 Hours (A) 08/16/2023 11:17 AM CDT DT Comment: 3 of 3 Bottles, Susceptibilities performed on another specimen [id number] Blood (Blood, Peripheral Draw) 08/13/2023 7:35 PM CDT 08/13/2023 8:15 PM CDT Comment:Specimen Source Site : Blood Carlos Alberto Henson M.D. LAB MICROBIOLOGY - G ENERAL ORDERABLES [facility] [address] [place] [address], [facility] [address] [place] [address] * ECG 12 Lead (08/13/2023 7:02 PM CDT) Ventricular Rate ECG/Min 128 BPM MUSE VA Interval 138 ms MUSE QRSD Interval 64 ms MUSE QT Interval 304 ms MUSE QTC Interval 443 ms MUSE P [place] 45 degrees MUSE R [place] 34 degrees MUSE T Wave [place] 46 degrees MUSE 08/13/2023 7:02 PM CDT [...] ureteral stent. Findings discussed with Carlos Alberto Hensno M.D. at 1815 on 08/13/2023. Narrative 08/13/2023 [...] CDT Comment:Specimen Source Site : Blood Narrative [facility] - 08/16/2023 11:17 AM CDT [...] Henson M.D. LAB MICROBIOLOGY - G [facility] ORDERABLES [facility] [place] [address] [place] [address], [facility] [address] [place] [address] * Magnesium (08/13/2023 5:27 PM CDT) Magnesium, S 1.9 1.7 - 2.3 mg/dL 08/13/2023 6:12 PM CDT DT Blood (Blood, Venous) 08/13/2023 5:27 PM CDT 08/13/2023 5:58 PM CDT Carlos Alberto Henson M.D. LAB BLOOD ADD-ON Performing Organization Address [facility] Co de Phone Number [facility] [address] [place] [address], [facility] [address] [place] [address] * (ABNORMAL) Hepatic Function Panel (08/13/2023 5:27 [...] M.D. LAB BLOOD ADD-ON Performing Organization Address City/[facility]/ZIP Co de Phone Number [facility] [address] [place] [address], [facility] [address] [place] [address] * (ABNORMAL) Basic Metabolic Panel (08/13/2023 5:27 [...] Carlos Alberto Henson M.D. LAB BLOOD ADD-ON [facility] [address] [place] [address], [facility] [address] [place] [address] * Prothrombin Time (PT) (08/13/2023 5:27 PM [...] Carlos Alberto Henson M.D. LAB BLOOD ADD-ON [facility] [address] [place] [address], [facility] STMA [facility] [address] [place] [address] * (ABNORMAL) CBC with Differential, Blood (08/13/2023 [...] Carlos Alberto Henson M.D. LAB BLOOD ADD-ON [facility] [address] [place] [address], [facility] STMA [facility] [address] [place] [address] DHPM [facility] [address] [place] [address] * (ABNORMAL) Dipstick, Urine (08/13/2023 5:07 PM [...] Carlos Alberto Henson M.D. LAB URINE ORDERABLES [facility] [address] [place] [address], [facility] DTL [facility] [address] [place] [address] * Osmolality, Urine (08/13/2023 5:07 PM CDT) Osmolality, U 351 150 - 1150 mOsm/kg 08/13/2023 7:46 PM CDT DTL Urine 08/13/2023 5:07 PM CDT 08/13/2023 5:45 PM CDT Carlos Alberto Henson M.D. LAB URINE ORDERABLES Performing Organization Address City/[facility] Co de Phone Number [facility] [address] [place] [address], [facility] [address] [place] [address] * (ABNORMAL) Microscopic Manual (08/13/2023 5:07 PM [...] M.D. LAB URINE ORDERABLES Performing Organization Address [facility] Co de Phone Number [facility] [address] [place] [address], [facility] [address] [place] [address] * pH, Random, Urine (08/13/2023 5:07 PM CDT) pH, Random, U 7.0 4.5 - 8.0 08/13/2023 7:46 PM CDT DTL Urine 08/13/2023 5:07 PM CDT 08/13/2023 5:45 PM CDT Carlos Alberto Henson M.D. LAB URINE ORDERABLES [facility] [address] [place] [address], [place] [facility] [address] [place] [address] * (ABNORMAL) Bacterial Culture, Aerobic + Susceptibility, [...] Carlos Alberto Henson M.D. LAB [facility] - [facility] ORDER[facility] [address] [place] [address], [facility] [place]Ph[place] [address] [place] [address] * (ABNORMAL) Urinalysis, with Microscopic: Urine, Midstream [...] CDT DTL Predicted 24 [place] [address](H) <229 mg/24 h 08/13/2023 8:50 PM CDT DTL Predicted Range [id number] mg/24 h 08/13/2023 8:50 PM CDT DTL Comment Micro done on <2.5 mL 08/13/2023 7:55 PM CDT DTL Urine (Urine, Midstream) 08/13/2023 5:07 PM CDT 08/13/2023 5:44 PM CDT Carlos Alberto Henson M.D. LAB URINE ORDERABLES [facility] [address] [place] [address], [facility] DTL [facility] [address] [place] [address] * Interpretation of Outside CT Abdomen and [...] use home supply. 08/17/23: Id'ed by [facility] Rx# [id number], filled 07/22/23. HAZARDOUS - Handle with care. Swallow whole. Do NOT crush, chew or open capsule. Given 08/26/2023 9:12 AM CDT 120 mg Given 08/25/2023 9:08 AM CDT 120 mg Given 08/24/2023 9:12 AM CDT 120 mg Lactated Ringer's 1.5 mL/kg/hr ? 75 kg [place] weight (112.5 mL/hr, rounded to 113 mL/hr), intravenous, Continuous, Starting on Tue08/22/23 at 1030, Conditional Phase Pre-Gastrografin Administration. (Rate = 1.5 mL/kg/hr ideal body weight) Lactated Ringer's 0.75 mL/kg/hr ? 75 kg [place] weight (56.25 mL/hr, rounded to 56.3 mL/hr), [...] Provider: Brittni Howe R.Mari.)1242 (Given - Provider: Tayler Forrest RJonahN.)1831 (Given - Provider: Mary Rosado RJonahN.) 0019 [...] home supply. 08/17/23: Id'ed by [facility] Rx# [id number], filled 07/22/23. HAZARDOUS - Handle with care. Swallow whole. Do NOT crush, chew or open capsule. 0912 (Given - Provider: Tayler Forrest R.N. - Comment: Pat Murray, -2nd RN) 0908 (Given - Provider: Tayler Forrest R.N. - Comment: Pt 's own med from home) 0912 (Given - Provider: Lupe Valdez R.N.) fat emulsion app-apx-akpng & fish oil infusion 50 g (SMOFlipid) [...] Ringer's 1.5 mL/kg/hr ? 75 kg [place] weight (112.5 mL/hr, rounded to 113 mL/hr), intravenous, Continuous, Starting on Tue08/22/23 at 1030, Conditional Phase Pre-Gastrografin Administration. (Rate = 1.5 mL/kg/hr ideal body weight) Lactated Ringer's 0.75 mL/kg/hr ? 75 kg [place] weight (56.25 mL/hr, rounded to 56.3 mL/hr), [...] 1547 documented in this encounter Care Teams Market Gardener Relationship Specialty Start Date End Date Elsewhere, Pcp PCP - General Internal Medicine 08/13/23 documented as of this encounter
--- OUTSIDE RECORDS SUMMARY | 2023-10-14 09:22 | XMS_ITS | Encounter Summary ---
Author Organization [facility] Address [address] [place] [address] Care Team Providers Care Contact Acid Plant Operator Helper Name Role Phone Elsewhere, Pcp Primary Care Provider Unavailabl e Encounter Details Date Type Department Care Team (Late st Contact Info) Description 08/13/2023 4:35 PM CDT Ancillary Procedure Department of Radiology in [place], [place] [address] [place] [address] Carlos Alberto Henson M.D. [address] [place] [address] Social History Tobacco Use Types Packs/Day Years Used Date Smoking Tobacco: Never Smokeless Tobacco: Never [facility] Utilities Answer Date Recorded In the past 12 months has [facility] [employer], gas, oil, or water [employer] threatened to shut off services in your [...] your living situation today? I have a [facility] place to live 08/13/2023 Sex and Gender Information Value Date Recorded Sex Assigned at Not on file Gender Identity Not on file Sexual Orientation Not on file documented as of this encounter Plan of Treatment Upcoming Encounters Date Type Department Care Team (Late st Contact Info) Description 10/14/2023 1:00 PM CDT Procedure visit Department of Urology in [place], [place] [address] [place] [address] Paula Hernandez M.D. [address] [place] [address] documented as of this encounter Procedures Procedure [...] on filedocumented in this encounter Care Teams Contact Acid Plant Operator Helper Relationship Specialty Start Date End Date Elsewhere, Pcp PCP - General Internal Medicine 08/13/23 documented as of this encounter
--- OUTSIDE RECORDS SUMMARY | 2023-10-14 09:22 | XMS_ITS | Encounter Summary ---
Author Organization [facility] Address [address] [place] [address] Care Team Providers Care Implementation Specialist Name Role Phone Elsewhere, Pcp Primary Care Provider Unavailabl e Encounter Details Date Type Department Care Team (Latest Contact Info) Description 08/13/2023 Intake [facility] Social History Tobacco Use Types Packs/Day Years Used Date Smoking Tobacco: Never Smokeless Tobacco: Never [facility] Utilities Answer Date Recorded In [...] CDT Procedure visit Department of Urology in [place], [place] [address] [place] [address] Paula Hernandez M.D. 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
--- OUTSIDE RECORDS SUMMARY | 2023-10-14 09:23 | XMS_ITS | Data Portability ---
Author Organization [facility], [facility] Address [address] [place] [address] Care Team Providers Care Tissue Rewinder Name Role Phone MASOUD SAUER Primary Care Provider Assessment No assessment recorded. Plan of Treatment Reminders Order Date Submit Date Provider Last Modified By Organization Details Last Modified Time Details Appointments None recorded . Lab urinalys is, dipstick 2023 024 [email or web address] [facility], [address] [place], [address], 4 15:08:54 culture, urine 2023 024 [facility], [address], [place], [address], 4 10:11:11 Referral None recorded . Procedures None recorded . Surgeries cystosco py with ureteral stent exchange (SURG) 2021 022 [email or web address] Not available 16:50:47 cystosco py with ureteral stent exchange (SURG) 2021 022 [email or web address] Not available 15:46:30 Imaging None recorded . Medication Orders Myrbetri q 50 mg tablet,e xtended release 2021 022 [place] [id number], [address] [place], [place], [id number], 2 17:50:02 Bactrim DS 800 mg-160 mg tablet 2023 024 [email or web address] [facility][id number], [address] [facility], [place], [place], [id number], 16:19:28 Patient TargetsNo targets recorded. Patient InstructionsNo instructions recorded. Reason for Referral None Reported. Results Created Date Observation Date Name Description Value Unit Range Abnormal Flag LastModifiedBy Organization Detail LastModifiedTime 06/23/1906/23/2023 URINE CULTU RE final report MICROB IOLOGY RESULT S Not Available [facility] [address], [place], [address], 06/25/2023 10:11:11 06/23/19 24 06/23/2023 urina lysis , dipst ick Color-Status Red Not Available [facility] [address], [place], [address], 06/23/2023 15:08:10 06/23/19 24 06/23/2023 urina lysis , dipst ick pH-Status 7.5 Not Available [facility] [address], [place], [address], 06/23/2023 15:08:10 06/23/19 24 06/23/2023 urina lysis , dipst ick Protein-Stat us >=9.0 Not Available [facility] [address], [place], [address], 06/23/2023 15:08:10 06/23/19 24 06/23/2023 urina lysis , dipst ick Nitrates-Sta tus negati ve Not Available [facility] [address], [place], [address], 06/23/2023 15:08:10 06/23/19 24 06/23/2023 urina lysis , dipst ick Blood-Status Large Not Available [facility] [address], [place], [address], 06/23/2023 15:08:10 06/23/19 24 06/23/2023 urina lysis , dipst ick Leuko-Status Negati ve Not Available [facility] [address], [place], [address], 06/23/2023 15:08:10 06/23/19 24 06/23/2023 urina lysis , dipst ick Specimen Type Voided Not Available [facility] [address], [place], [address], 06/23/2023 15:08:10 07/04/19 24 07/01/2023 CT, abdom en + pelvi s, w/o contr ast No observ [email or web address] [address] [facility] [address], [place], [address], 09/01/2023 14:40:29 07/18/19 24 07/18/2023 XR, kidne y + urete r + bladd er No observ ation record ed. [email or web address] [facility] [address], [place], [address], 07/22/2023 15:56:19 Result Notes None recorded. Procedures Surgical History Date Name Laterality Status Provider Name and Address Organization Details Recorded Time Bladder Scan completed Rabia matthews, [facility] 06/23/2023 15:08:00 Cystoscopy completed Nicola Ware MD [address] [place] [address],[address], [place], [address], [facility] 12/30/2021 17:11:17 Colonoscopy completed Nicola Ware MD [address] [place] [address],[address], [place], [address], [facility] 12/30/2021 17:11:22 Imaging Results Imaging Date Name Status LastModified by [facility] Details LastModified Time 07/01/2023 CT, abdomen + pelvis, w/o contrast completed [facility] [address], [place], [address], 09/01/2023 14:40:29 07/18/2023 XR, kidney + ureter + bladder completed [facility] [address], [place], [address], 07/22/2023 15:56:19 Procedure Notes None recorded. Medical [...] PY PREP INSTRUCTI ONS RECEIVED FROM [facility] active Not Available Not Available No t Available furosemide 20 mg tablet TAKE 1 TABLET BY MOUTH DAILY active Not Available Not Available No t Available cefuroxime axetil 500 mg tablet active Not Available Not Available No t Available polyethylen e glycol 3350 17 gram/dose oral powder MIX AND DRINK DIRECTED IN [facility] PY PREP INSTRUCTI ONS RECEIVED FROM [facility] active Not Available Not Available No t [...] Updated DateTime 12/30/2021 177.8 cm 27.4 kg/m2 73985.14 g Nicola Ware MD [address] [place] [address], [address] 12/30/2021 17:10:12 Date Recorded Body height Body mass index (BMI) Body weight Provider Name and Address Organization Details Last Updated DateTime 03/12/2022 177.8 cm 27.4 kg/m2 57238.14 g Rabia Ferrell [facility] 03/12/2022 13:55:47 Social History Question Answer Notes LastModified by Organizat ion Details LastModified Time Tobacco Smoking Status Never Smoker Nicola Ware MD [address] [place] [address], [address], [facility] 12/30/2021 17:11:00 What Is Your Level [...] Encounter Closed Date Diagnosis/Indication Diagnosis SNOMED-CT Code [id number] Nicola Ware MD [facility] [address] [place] [address] 12/30/2021 16:01:19 01/01/2022 09:36:50 Increased frequency of urination [id number] Malignant tumor of prostate [id number] Hydronephrosis [id number] Aliza Landeros [facility] [address] [place] [address] 03/12/2022 13:13:50 03/15/2022 14:00:47 Increased frequency of urination [id number] Malignant tumor of prostate [id number] Hydronephrosis 44302570 [id number] Nicola Ware MD [facility] [address] [place] [address] 06/23/2023 14:16:52 06/24/2023 08:40:38 Blood in urine [id number] Health Concerns Section Related Observation LastModified by Organization Detai ls LastModified Time None Recorded Concern Status LastModified by Organization Details LastModified Time None Recorded Advance Directives Directive None Recorded Payers Encounter Date Sequence Insurance Name Policy Number Policy Krishnan Covered Member ID Krishnan Member ID Guarantor Name 12/30/2021 1 [employer] (MEDICARE REPLACEMENT/ ADVANTAGE - PPO) [id number] José Miguel D Braucher [id number] José Miguel D Braucher 03/12/2022 1 [employer] (MEDICARE REPLACEMENT/ ADVANTAGE - PPO) [id number] José Miguel D Braucher [id number] José Miguel D Braucher 06/23/2023 1 [employer] (MEDICARE REPLACEMENT/ ADVANTAGE - PPO) [id number] José Miguel D Braucher [id number] José Miguel D Braucher Notes Date Note Type Note Provider Name and Address Organization Details Recorded Time 12/30/2021 text/html HPI Notes: Excer pt from hospital consultation... 81 y.o. year old male who was admitted to [facility] for gross hematuria & CT [...] some of the history. Nicola Ware MD [address] [place] [address],[address], [place], [address], [facility] 12/30/2021 23:07:10 03/12/2022 text/html HPI Notes: Excer pt from hospital consultation... 81 y.o. year old male who was admitted to [facility] for gross hematuria & CT [...] some of the history. Nicola Ware MD [address] [place] [address],[address], [place], [address], [facility] 03/12/2022 17:21:47 06/23/2023 text/html HPI Notes: 83 Y male here after calling triage this AM with hematuria/pain with urination. Patient has stent in place, last exchange 02/08/2022. 06/23/23 visit completed by Curry Ware MD [address] [place] [address],[address], [place], [address], [facility] 06/23/2023 16:19:33
--- OUTSIDE RECORDS SUMMARY | 2023-10-14 09:23 | XMS_ITS | Clinical Summary ---
Author Organization [facility] [employer] [facility] [employer] Address [place], [place] [address] Care Team Providers Care Revenue Research Analyst Name Role Phone Cesar Mccollum MD Primary Care Provider Nicola Mcgarry MD Unavailable [phone] Mireya Tan MD Unavailable [phone] [facility] Unavailable [phone] Allergies No known active allergies Medications Medication [...] AT BEDTIME 90 Tablet 3 4 Active clopidogreL (PLAVIX) 75 mg tabletIndications:C oronary artery disease, unspecified vessel or lesion type, unspecified whether angina present, unspecified whether [place] or transplanted heart Take 1 Tablet (75 [...] iron, carbonyl (Perfect Iron) 25 mg iron tabIndications:Laboratory Coordinator junior blood loss anemia 1 tablet p.o. daily 4 Active acetaminophen (TYLENOL EXTRA STRGTH) 500 mg tabletIndications:P ain Take 2 Tablets (1,000 mg) by mouth 3 times daily if needed for Pain. Max acetaminophen dose: 4000mg in 24 hrs. 4 Active amLODIPine (NORVASC) 10 mg tabletIndications:B enign essential HTN Take 0.5 Tablets (5 mg) by mouth once daily. 4 Active iron, carbonyl (Perfect Iron) 25 mg iron tab Take by mouth. 3 10/04/19 24 Discontinue d(*Medicati on adjustment) naproxen (NAPROSYN) 500 mg tabletIndications:O ther hydronephrosis Take 0.5-1 Tablets (250-500 mg) by mouth every 12 hours if needed for Pain. 5 Tablet 4 10/04/19 24 Discontinue d(*Patient states no longer taking) amLODIPine (NORVASC) 10 mg tabletIndications:B enign essential HTN TAKE 1 TABLET(10 MG) BY MOUTH EVERY DAY 90 Tablet 2 4 10/08/19 Discontinue d(*Medicati on adjustment) trimethoprim-sulfam ethoxazole, 160-800 mg, (BACTRIM DS, SEPTRA DS) tabIndications:Comp licated UTI (urinary tract infection) Take 1 Tablet by mouth two times daily for 7 days. 14 Tablet 4 09/28/19 levoFLOXacin (LEVAQUIN) 250 mg tabletIndications:C omplicated UTI (urinary tract infection) Take 1 Tablet (250 mg) by mouth once daily for 5 days. 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 QYF=515.87 Bladder mass 02/29/2020 04/30/2020 Hematuria 02/29/2020 03/05/2020 Acute deep vein thrombosis (DVT) 02/29/2020 11/20/2020 S/P coronary angioplasty 11/03/2016 Chest pain 09/15/2016 03/05/2020 Elevated prostate specific antigen (PSA) 10/06/2010 03/05/2020 Hip arthritis 10/06/2010 03/05/2020 Colon polyp 07/15/2010 PATRICE (acute kidney injury) Obstructive uropathy 020 Encounters Date Type Department Care Team Description 10/12/2023 Telephone [facility] [address] [place], [place] [id number] Cesar Mccollum MD Questions 10/11/2023 7:15 AM CDT Home Care Visit [address] [address] Manav Montero RN SN - WOUND/OSTOMY CHART CONSULT 10/10/2023 4:00 PM CDT Home Care Visit [address] [address] Deonna Oliveira PTA PT - HOME VISIT 10/10/2023 10:30 AM CDT Home Care Visit [address] [address] Milli Torre RN SN - HOME VISIT 10/08/2023 9:00 AM CDT Home Care Visit [address] [address] Justyna Hernandez, JAMEL SN - INITIAL ASSESSMENT 10/08/2023 Telephone [facility] [address] [place] [address] Cesar Mccollum MD Home Care (BP med parameters) 10/07/2023 11:30 AM CDT Home Care Visit [address] [address] Raffy Carter, PT PT - HOME VISIT 10/07/2023 Home Care Visit [address] [address] Milli Torre RN CARE COORDINATION 10/06/2023 1:00 PM CDT Ancillary Procedure [facility] - [address] [place] [address] 10/06/2023 Travel 10/04/2023 1:00 PM CDT Office Visit [facility] [address] [place] [address] Souleymane Miller MD Follow Up (Annual Follow up /Coronary artery disease) 10/04/2023 10:15 AM CDT Home Care Visit [address] [address] Manav Rodríguez, PT PT - OASIS START OF CARE 10/04/2023 Telephone [facility] [address] [place] [address] Manav Rodríguez, PT Home Care 10/04/2023 Orders Only [facility] [address] [place] [address] Souleymane Miller MD 1 scan: (1-Ord) NFLD-EKG-10/04/23 10/04/2023 Travel 10/04/2023 Plan of Care Documentation [address] [address] 10/03/2023 Telephone [facility] [address] [place] [address] Cesar Mccollum MD 10/02/2023 Home Care Visit [facility] [address] [place] [address] Saul Lawson, RN CARE COORDINATION 10/01/2023 Home Care Visit [facility] [address] [place] [address] Saul Lawson, RN CARE COORDINATION 09/29/2023 1:40 PM CDT Office Visit [facility] [address] [place] [address] Cesar Mccollum MD Hospital F/U ([place], urinary problem); Concerns (Bed sore - would like checked) 09/29/2023 Travel 09/23/2023 Telephone [facility] [address] [place] [address] Cesar Mccollum MD Results 09/22/2023 10:30 AM CDT Orders Only [address] [address] Lab, [place] Lab 09/22/2023 9:50 AM CDT Nurse/Clinic Staff Only [facility] [address] [place] [address] Dressing Change 09/22/2023 Telephone [facility] [address] [place] [address] Cesar Mccollum MD Results 09/22/2023 Travel 09/21/2023 3:20 PM CDT Nurse/Clinic Staff Only [address] [address] Procedure (UA collection from jon and neph tube) 09/21/2023 Telephone [facility] [address] [place] [address] Letty Mera MD 09/20/2023 2:15 PM CDT Ancillary Procedure [facility] [address] [place] [address] 09/20/2023 1:00 PM CDT Office Visit [address] [place] [address] Letty Mera MD Hospital F/U (Admission Date: 09/09/2023 Discharge Date: 09/15/23); Wound Check (sacrum & neph tube site. ); Home Care; Concerns (Feels like catheter is falling out - pt states that it is leaking. ) 09/20/2023 Travel 09/15/2023 Transcribe Orders [facility] [address] [place] [address] Provider, Non-Excellian 09/13/2023 Telephone [facility] [place] [address] Cesar Mccollum MD Procedure (director of social services) 08/31/2023 Transcribe Orders [facility] [address] [place] [address] Senthil Alvarez MD 08/30/2023 Orders Only [facility] Scanner 1 scan: (1-Ord) [facility], 08/30/2023 08/23/2023 Transcribe Orders [facility] [address] [place] [address] Provider, Non-Excellian 08/13/2023 Orders Only [facility] Scanner 1 scan: (1-Ord) [facility] [place], ABDOMEN/PELVIS W/O, 08/13/2023 08/04/2023 11:30 AM CDT Office Visit [facility] [address] [place] [address] Sandip Garcia, [facility] 08/04/2023 Travel 08/02/2023 2:30 PM CDT Orders Only [facility] [address] [place] [address] Lab, [place] Lab 08/02/2023 Travel 08/02/2023 Orders Only [facility] [place] [address] Cesar Mccollum MD <No scans attached> 07/21/2023 8:55 AM CDT Office Visit [facility] [address] [place] [address] Cesar Mccollum MD Medicare ANNUAL (subsequent) Visit (83 year old); Post Procedure (Uteretal stent exchange) 07/21/2023 Travel 07/18/2023 10:00 AM CDT Anesthesia Event [facility] [address] [place] [address] Leonardo Frankel MD Purdy, Adam John, GAVIN 07/18/2023 9:45 AM CDT - 07/18/2023 10:54 AM CDT Surgery [facility] [address] [place] [address] Nicola Mcgarry MD CYSTOSCOPY EXCHANGE, RIGHT URETERAL STENT 07/18/2023 7:41 AM CDT - 07/18/2023 3:26 PM CDT Hospital Encounter [facility] [address] [place] [address] Nicola Mcgarry MD Other hydronephrosis (Primary Dx) Discharge Disposition: Home Self Care 07/18/2023 Travel 07/15/2023 8:20 AM CDT Preop Visit [facility] [address] [place] [address] Shannan Bain, DO Pre-Op Exam (/BLADDER SURGERY [facility] DR[address] MCGARRY 07/18/23) 07/15/2023 Travel from Last 3 Months Immunizations Name Administration Dates Next Due COVID-19 Vaccine Spikevax (M oderna 50mcg/0.5mL) 12YO+ [id number] Formula PF 07/21/2023,03/08/2023 COVID-19 vaccine (Pfizer-Bio NTech [...] Sign Reading Time Taken Comments Blood Pressure 110/60 10/10/2023 5:05 PM CDT Pulse 92 10/10/2023 5:30 PM CDT Temperature 36.3 ??C (97.3 ??F) 10/10/2023 5:05 PM CD T Respiratory Rate 16 10/10/2023 5:05 PM CDT Oxygen Saturation 97% 10/10/2023 5:30 PM CDT Inhaled Oxygen Concentration - - Weight 81.6 kg (180 lb) 10/04/2023 1:10 PM CDT Height 177.1 cm (5' 9.72) 07/21/2023 9:05 AM CD T Body Mass Index 26.03 07/21/2023 9:05 AM CDT Plan of Treatment Upcoming Encounters Date Type Department Care Team (Late st Contact Info) Description 10/17/2023 4:00 AM CDT Home Care Visit [address] [address] Brittanie Prieto, JAMEL [address] [place] [address] 10/17/2023 9:15 AM CDT Home Care Visit [address] [address] Liz Fang, [facility] [address], [address] [place] [address] 10/17/2023 11:15 AM CDT Orders Only [facility] [address] [place] [address] Lab, [place] 10/19/2023 3:00 AM CDT Home Care Visit [address] [address] Raffy Carter, PT [address] [place] [address] 10/20/2023 10:35 AM CDT Office Visit [facility] [address] [place] [address] Cesar Mccollum MD [address] [place] [address] 10/21/2023 3:00 AM CDT Home Care Visit [address] [address] Raffy Carter, PT [address] [place] [address] 10/24/2023 4:00 AM CDT Home Care Visit [address] [address] Doreen Hussein, JAMEL [address] [place] [address] 10/25/2023 3:00 AM CDT Home Care Visit [address] [address] Raffy Carter, PT [address] [place] [address] 10/25/2023 4:00 AM CDT Home Care Visit [address] [address] Manav Montero RN [address] [place] [address] 10/28/2023 3:00 AM CDT Home Care Visit [address] [address] Raffy Carter, PT [address] [place] [address] 10/31/2023 4:00 AM CDT Home Care Visit [address] [address] Doreen Hussein, RN [address] [place] [address] 11/07/2023 4:00 AM CDT Home Care Visit [address] [address] Doreen Hussein, RN [address] [place] [address] 11/14/2023 4:00 AM CDT Home Care Visit [address] [address] [place] [address] [place] [address] 11/21/2023 4:00 AM CDT Home Care Visit [address] [address] Doreen Hussein RN [address] [place] [phone] 11/28/2023 4:00 AM CDT Home Care Visit [address] [address] Doreen Hussein RN [address] [place] [phone] Health Maintenance Due Date Last Done Comments [...] Completed 4 Medical Devices Implanted Type Area Supervisor Operations Device Identifier Shelf Expiration Date Model / Serial / Lot Stent Uret [id number] - [id number] Implanted:Qty: 1 on 07/18/2023 by Nicola Mcgarry MD at [facility] Right: Ureter [facility] 02/27/2026 [id number] / / [id number] Procedures Procedure Name Priority Date/Time Associated Diagnosis Comments ECHO TTE COMPLETE WO CONTRAST DEBBI 10/06/2023 1:34 PM CDT Coronary artery disease, unspecified vessel or lesion type, unspecified whether angina present, unspecified whether [place] or transplanted heart EKG 12 LEAD Routine 10/04/2023 2:15 PM CDT Coronary artery disease, unspecified vessel or lesion type, unspecified whether angina present, unspecified whether [place] or transplanted heart AK READING EKG - NO CHARGE, COMP ONLY Routine 10/04/2023 2:14 PM CDT Coronary artery disease, unspecified vessel or lesion type, unspecified whether angina present, unspecified whether [place] or transplanted heart CBC WITH AUTO DIFFERENTIAL [...] Routine 07/15/2023 9:40 AM CDT Pre-op exam from Last 3 Months Results * ECHO TTE COMPLETE WO CONTRAST (10/06/2023 1:34 PM CDT) AORTIC VALVE MEAN PG 10 mmHg EJECTION FRACTION 60 % PEAK TR VELOCITY 2.8 m/s LVEDD 4.2 cm EJECTION FRACTION 65 - 70% Anatomical Region Laterality Modality Ultrasound 10/06/2023 12:5 9 PM CDT Narrative 10/06/2023 2:17 PM CDT ECHOCARDIOGRAM SHYAM SANDS ? Accession#: ?? [id number] : ?1940 83 years Study Date: ?? 10/06/2023 12:59:18 PM Gender: M ?BP: ? 131/72 mmHg Height: 175.26 cm ?BSA: ?1.98 m? ? ? Weight: 81.65 kg ? Tech: ? MBF ? Referring MD: SOULEYMANE MILLER Site: ? [facility] Reading Location: Mobile OP Patient Location: [...] . This study was interpreted by an [facility] accredited facility. ??Final ?? Procedure Note Manav Feliciano MD - 10/06/2023 ECHOCARDIOGRAM SHYAM SANDS : 1940 83 years Study Date: 10/06/2023 12:59:18 PM Gender: M BP: 131/72 mmHg Height: 175.26 cm BSA: 1.98 m? ? ? Weight: 81.65 kg Tech: F Referring MD: SOULEYMANE MILLER Site: [facility] Reading Location: [facility] Patient Location: Outpatient. Procedure: 2D, Color [...] . This study was interpreted by an [facility] accredited facility. Final Souleymane Miller MD ECHO ORD * EKG 12 LEAD (10/04/2023 2:15 PM CDT) Souleymane Miller MD EKG ORD * AK READING EKG - NO CHARGE, COMP ONLY (10/04/2023 2:14 PM CDT) Souleymane Miller MD PB - PROVIDER READ INGS * (ABNORMAL) CBC WITH AUTO DIFFERENTIAL (09/22/2023 10:39 AM CDT) Only the most recent of2 resultswithin the time period is included. WHITE BLOOD COUNT 11.0 4.5 - 11.0 thou/cu mm 09/22/2023 10:46 AM CDT [facility] RED BLOOD COUNT 2.81(L) 4.30 - 5.90 mil/cu mm 09/22/2023 10:46 AM CDT [facility] HEMOGLOBIN 8.0(L) 13.5 - 17.5 g/dL 09/22/2023 10:46 AM CDT [facility] HEMATOCRIT 25.2(L) 37.0 - 53.0 % 09/22/2023 10:46 AM CDT [facility] MCV 90 80 - 100 fL 09/22/2023 10:46 AM CDT [facility] MCH 28.5 26.0 - 34.0 pg 09/22/2023 10:46 AM CDT [facility] MCHC 31.7(L) 32.0 - 36.0 g/dL 09/22/2023 10:46 AM CDT [facility] RDW 17.5(H) 11.5 - 15.5 % 09/22/2023 10:46 AM CDT [facility] PLATELET COUNT 466(H) 140 - 440 thou/cu mm 09/22/2023 10:46 AM CDT [facility] MPV 8.9 6.5 - 11.0 fL 09/22/2023 10:46 AM CDT [facility] % NEUT 86.3 % 09/22/2023 10:46 AM CDT [facility] % LYMPH 6.6 % 09/22/2023 10:46 AM CDT [facility] % MONO 5.8 % 09/22/2023 10:46 AM CDT [facility] % EOS 1.2 % 09/22/2023 10:46 AM CDT [facility] % BASO 0.1 % 09/22/2023 10:46 AM CDT [facility] ABSOLUTE NEUTROPHILS 9.5(H) 1.7 - 7.0 thou/cu mm 09/22/2023 10:46 AM CDT [facility] ABSOLUTE LYMPHOCYTES 0.7(L) 0.9 - 2.9 thou/cu mm 09/22/2023 10:46 AM CDT [facility] ABSOLUTE MONOCYTES 0.6 <0.9 thou/cu mm 09/22/2023 10:46 AM CDT [facility] ABSOLUTE EOSINOPHILS 0.1 <0.5 thou/cu mm 09/22/2023 10:46 AM CDT [facility] ABSOLUTE BASOPHILS 0.0 <0.3 thou/cu mm 09/22/2023 10:46 AM CDT [facility] Blood BLOOD SPECIMEN / Unknown Venipuncture / Unknown 09/22/2023 10:39 AM CDT 09/22/2023 10:43 AM CDT Letty Mera MD HEMATOLOGY Performing Organization Address City/[facility]/ZIP Co de Phone Number [facility] [address] [place] [address], [place] [phone] * (ABNORMAL) URINE CULTURE (09/21/2023 4:40 PM CDT) Only the most recent of2 resultswithin the time period is included. CULTURE RESULT(A) 09/24/2023 9:54 AM CDT [facility] CULTURE >100,000 CFU/mL Shirin albicans 09/24/2023 9:54 AM CDT [facility] Urine URINE SPECIMEN / Unknown Non-Blood / Unknown 09/21/2023 4:40 PM CDT 09/21/2023 4:41 PM CDT Letty Mera MD MICROBIOLO GY [facility] [address] [place] [address], [place] * XR CHEST 2 VIEWS PA [...] of2 resultswithin the time period is included. HEMOGLOBIN 10.1(L) 13.5 - 17.5 g/dL 08/02/2023 2:31 PM CDT [facility] MCV 89 80 - 100 fL 08/02/2023 2:31 PM CDT [facility] Blood BLOOD SPECIMEN / Unknown Venipuncture / Unknown 08/02/2023 2:26 PM CDT 08/02/2023 2:26 PM CDT Cesar Mccollum MD HEMATOLOGY Performing Organization Address City/[facility]/ZIP Co de Phone Number [facility] [address] [place] [address], [place] [phone] * HEMOGLOBIN A1C SCREENING (07/21/2023 9:58 AM CDT) Pathologist [facility] HEMOGLOBIN A1C SCREENING 5.4 <=6.4 % 07/21/2023 5:56 PM CDT [facility] Blood BLOOD SPECIMEN / Unknown Venipuncture / Unknown 07/21/2023 9:58 AM CDT 07/21/2023 10:00 AM CDT Narrative [facility] - 07/21/2023 5:56 PM CDT ? (<5.7%) ?Normal ? (5.7% to 6.4%) ? Indicates prediabetes ? (>=6.5%) ? Confirms diabetes Falsely low levels may be seen with: Recent Transfusion, Recent Significant Blood Loss, Hemolytic Diseases, or Falsely elevated levels may be seen with: Untreated Anemias, Splenectomy Cesar Mccollum MD CHEMISTRY [facility] [address] [place] [address], [place] * XR RETROGRADE PYELOGRAM W/WO KUB (07/18/2023 11:04 AM CDT) Anatomical Region Laterality Modality KIDNEYS, Abdomen Digital Radiogr aphy Narrative 07/18/2023 10:10 AM CDT 12 seconds fluoroscopy time was provided. ??See operative/procedure report for further information. Nicola Mcgarry MD GENERAL IMAGING * HCHG MASK PR5 (07/18/2023 10:17 AM CDT) Narrative Fred Kapadia, TRANSMISSION SUPERVISOR - 07/18/2023 10:17 AM CDT Fred Kapadia [...] - 145 mmol/L 07/15/2023 5:14 PM CDT [facility] POTASSIUM 4.7 3.5 - 5.1 mmol/L 07/15/2023 5:14 PM CDT [facility] CHLORIDE 106 98 - 107 mmol/L 07/15/2023 5:14 PM CDT [facility] CO2,TOTAL 24 22 - 29 mmol/L 07/15/2023 5:14 PM CDT [facility] ANION GAP 11 5 - 18 07/15/2023 5:14 PM CDT [facility] GLUCOSE 91 70 - 99 mg/dL 07/15/2023 5:14 PM CDT [facility] CALCIUM 9.3 8.8 - 10.2 mg/dL 07/15/2023 5:14 PM CDT [facility] BUN 22 8 - 23 mg/dL 07/15/2023 5:14 PM CDT [facility] CREATININE 1.32(H) 0.70 - 1.20 mg/dL 07/15/2023 5:14 PM CDT [facility] BUN/CREAT RATIO 17 10 - 20 5:14 PM CDT [facility] eGFR 53(L) >90 mL/min/1.7 3m2 07/15/2023 5:14 PM CDT [facility] Comment:As of 2021, eG [...] 9:40 AM CDT Shannan Bain DO CHEMISTRY Performing Organization Address City/State/[facility] Co de Phone Number [facility] [address] [place] [address], from Last 3 Months Advance Directives * [...] Code Status Discussion: Reviewed Preferences Care Teams Revenue Research Analyst Relationship Specialty Start Date End Date Cesar Mccollum MD [address] [place] [address] PCP - General Family Practice 03/04/20 Nicola Mcgarry MD [address] [place] [phone] Surgery - Urology 03/13/20 Mireya Tan MD [address] [place] [phone] Hematology - Pathology 03/13/20 [facility] [address] [place] [address] 09/29/23
== END 2023-10-14 09:15 | disposition home or self-care (01) ==
LOC: WOUND 09:14
PROVIDERS: PCP Family Medicine; Visit Provider Nurse Practitioner Family
DX: L89.153 Pressure ulcer of sacral region, stage 3 (principal); N30.41 Irradiation cystitis with hematuria; K62.7 Radiation proctitis; C61 Malignant neoplasm of prostate; Y84.2 Radiological procedure and radiotherapy as the cause of abnormal reaction of the patient, or of later complication, without mention of misadventure at the time of the procedure
CPT/HCPCS: 11042

== ENCOUNTER 2023-10-21 08:09 | Outpatient (CLI) | payer MEDICARE, OTHER, SELFPAY ==
--- OUTSIDE RECORDS SUMMARY | 2023-10-21 08:12 | XMS_ITS | Referral Summary ---
Author Organization [facility] Address [address] [place] [address] Care Team Providers Care Screen Door Maker Name Role Phone Cesar Mcclolum Primary Care Provider [phone] Allergies No known active allergies Medications Medication [...] on file Medical Devices Implanted Type Area Bobbin Presser Device Identifier Shelf Expiration Date Model / Serial / Lot Stent Ureteral Polaris Ultra [id number] - [id number] Implanted:Qty : 1 on 02/08/2022 by Nicola Ware MD at [facility] Stent Right: Ureter [employer] [id number] 10/08/2024 [id number] Explanted Type Area Bobbin Presser Device Identifier Shelf Expiration Date Model / Serial / Lot Stent Came Out Of The Right Ureter Explanted:Qty: 1 on 02/08/2022 by Nicola Ware MD at [facility] Right: Urethra Advance Directives For more information, please contact: [phone] Documents on File Type Date Recorded Patient Phonograph Needle Tip Maker Expl anation Advance Directives and Living Will 02/17/2022 Health Care Directiv e 05/15/2021 Healthcare Agents on File Name Relationship Healthcare Agent Relationship Communication Mindy Waterman Daughter Co-First Alterna te Health Care Agent Meera Vega Spouse Health Care Agent [id number] (Home) Favio Vega Son Co-First Altern ate Health Care Agent Tereso Vega Son Co-First Alterna te Health Care Agent Care Teams Screen Door Maker Relationship Specialty Start Date End Date Cesar Mccollum [address] [place] [address] PCP - General Family Medicine 11/22/22
--- OUTSIDE RECORDS SUMMARY | 2023-10-21 08:12 | XMS_ITS | Clinical Summary ---
Author Organization [facility] Address [address] [place] [address] Care Team Providers Care Supervisor Shaving And Splitting Name Role Phone Cesar Mccollum Primary Care Provider [phone] Allergies No known active allergies Medications Medication [...] this topic Medical Devices Implanted Type Area Territory Representative Device Identifier Shelf Expiration Date Model / Serial / Lot Stent Ureteral Polaris Ultra [id number] - [id number] Implanted:Qty : 1 on 02/08/2022 by Nicola Ware MD at [facility] Stent Right: Ureter [employer] [id number] 10/08/2024 [id number] Explanted Type Area Territory Representative Device Identifier Shelf Expiration Date Model / Serial / Lot Stent Came Out Of The Right Ureter Explanted:Qty: 1 on 02/08/2022 by Nicola Ware MD at [facility] Right: Urethra Advance Directives For more information, please contact: [phone] Documents on File Type Date Recorded 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
--- OUTSIDE RECORDS SUMMARY | 2023-10-21 08:12 | XMS_ITS | Clinical Summary ---
Author Organization [facility] Address [address] [place] [address] Care Team Providers Care Crisis Worker Name Role Phone Elsewhere, Pcp Primary Care Provider Unavailabl e Source Comments Patient records contain information from all sites at [facility]. For routine questions regarding patient records, call [phone] during business hours, M-F 8:00 AM - 5:00 PM Central Time. Record requests for emergency care only can be directed to [phone] at any time.[facility] Allergies No known active allergies Medications [...] time each day. Swallow it whole. Active iron,carbonyl-berenice min C (VITRON-C) 65 mg iron- 125 mg [...] to catheter removal 20 tablet 08/26/2023 Active Active Problems Problem Noted Date Diagnosed Date Hematuria Gross 08/31/2023 Hematuria 08/13/2023 Lymphedema 03/21/2020 Primary Malignant Neoplasm Of Prostate 0 Cancer Staging:Clinical stage from 03/03/2020:Stage IVB(cT4, cN1, pM1b, PSA: 161.9) - Signed by Tereso Frazier M.D. on 03/21/2020 Encounters Date Type Department Care Team Description 10/14/2023 1:00 PM CDT Procedure visit Department of Urology in [place], [place] [address] [place] [address] Paula Hernandez M.D. Reichmann, Lynne G RRitesh. Hematuria 10/14/2023 Documentation Department of Urology in [place], [place] [address] [place] [address] Paula Hernandez M.D. Catheter Care Plan 09/27/2023 Clinical Communication Department of Urology in [place], [place] [address] [place] [phone] Paula Hernandez M.D. 09/21/2023 Clinical Communication Department of Urology in [place], [place] [address] [place] [phone] Paula Hernandez M.D. 09/16/2023 Clinical Communication Department of Urology in [place], [place] [address] [place] [phone] Provider, Unknown follow up questions 09/16/2023 Orders Only Department of Urology in [place], [place] [address] [place] [phone] Paula Hernandez M.D. Hematuria Gross (Primary Dx) 09/15/2023 Clinical Communication [facility] [address] [place] [phone] Yasmine Loco 09/09/2023 12:10 PM CDT Ancillary Procedure Department of Nursing 09/09/2023 7:24 AM CDT - 09/15/2023 5:28 PM CDT Hospital Encounter , [facility], [facility], Sixth Floor [address] [place] [phone] Gerri Merrill M.D., Ph.D. Sumit Holbrook M.D. Hematuria (Primary Dx) Discharge Disposition: Home or Self Care 09/09/2023 Documentation Department of Urology in [place], [place] [address] [place] [phone] Ko Victoria M.D. 09/06/2023 Orders Only Section of Hyperbaric Medicine in [address] [phone] Kira Ferraro APRN, C.N.P., M.S.N. 09/06/2023 Clinical Communication [facility] [address] [place] [phone] Yasmine Loco 09/01/2023 10:05 AM CDT Ancillary Procedure Department of Nursing 08/31/2023 12:36 PM CDT - 08/31/2023 2:31 PM CDT Surgery [facility] [address] [place] [phone] Mayur Alvarez M.D. CYSTOSCOPY EVACUATION CLOTS 08/31/2023 12:34 PM CDT [place] [address] [place] [phone] Joe Stoll M.D. Gran, Terry L, APRN, GAVIN 08/31/2023 12:25 PM CDT Ancillary Procedure Department of General Surgery 08/30/2023 7:35 PM CDT - 09/05/2023 4:09 PM CDT Hospital Encounter [facility], [facility], First Floor [address] [place] [phone] Kirstin Hughes M.D. Thompson, R. Houston, M.D. Hematuria (Primary Dx); Tachycardia; Hematuria Gross Discharge Disposition: Home-Health Care [facility] 08/30/2023 Documentation Department of Urology in [place], [place] [address] [place] [phone] Corin Ring M.D. 08/30/2023 Intake [facility] 08/26/2023 Orders Only Department of Urology in [place], [place] [address] [place] [phone] Paula Hernandez M.D. 08/23/2023 12:45 AM CDT Ancillary Procedure Department of Nursing 08/15/2023 8:30 AM CDT [place] [address] [place] [phone] Hayde Song M.D. 08/15/2023 7:55 AM CDT - 08/15/2023 11:23 AM CDT Surgery [facility] [address] [place] [phone] Boubacar Brock M.D. Palliative EXPLORATORY LAPAROTOMY, CYSTOTOMY CLOSURE, RIGHT URETERAL STENT EXCHANGE 08/13/2023 4:35 PM CDT Ancillary Procedure Department of Radiology in [place], [place] [address] [place] [address] Carlos Alberto Henson M.D. 08/13/2023 3:42 PM CDT - 08/26/2023 4:11 PM CDT Hospital Encounter [facility], [facility], Sixth Floor [address] [place] [address] Darnell Garcia M.D. Chow, George K, M.D. Decline Functional Status [R53.81] (Primary Dx); Hematuria [R31.9] Discharge Disposition: Home or Self Care 08/13/2023 Intake [facility] from Last 3 Months Social History Tobacco Use Types Packs/Day Years Used Date Smoking Tobacco: Never Smokeless Tobacco: Never Tobacco Cessation:Counseling Given: Not Answered [facility] Utilities Answer Date Recorded In the past 12 months has [facility] [employer], gas, oil, or water [employer] threatened to shut off services in your [...] your living situation today? I [facility] to live 09/09/2023 Sex and Gender [...] 09/11/2023 1:04 PM CDT Plan of Treatment Health Maintenance [...] 07/21/19 24 Medical Devices Implanted Type Area Remodeler Device Identifier Shelf Expiration Date Model / Serial / Lot Clp Hrzn Ti 6 Clp Lg Orng - [id number] Implanted:Qt y: 1 on 08/15/2023 by Boubacar Brock M.D. at [facility] Hardware e.g. pins/screws /rods Abdomen [employer] [id number] 02/29/2028 [id number] / / [id number] Clp Hrzn Ti 6 Clp Lg Orng - [id number] Implanted:Qt y: 1 on 08/15/2023 by Boubacar Brock M.D. at [facility] Hardware e.g. pins/screws /rods Abdomen [employer] [id number] 02/29/2028 [id number] / / [id number] Clp Hrzn Ti 6 Clp Md Monty - [id number] Implanted:Qt y: 1 on 08/15/2023 by Boubacar Brock M.D. at [facility] Hardware e.g. pins/screws /rods Abdomen [employer] [id number] 03/13/2028 [id number] / / [id number] Clp Hrzn Ti 6 Clp Md Monty - [id number] Implanted:Qt y: 1 on 08/15/2023 by Boubacar Brock M.D. at [facility] Hardware e.g. pins/screws /rods Abdomen [employer] [id number] 03/21/2028 [id number] / / [id number] Stnt Uret Inl 6fx24 - [id number] Implanted:Qt y: 1 on 08/15/2023 by Jakob De Paz M.D. at [facility] Ureteral Stent N/A: Ureter [employer] [id number] 11/18/2027 [id number] / / [id number] Procedures Procedure Name Priority Date/Time Associated Diagnosis [...] LINE INSERTION Routine 08/15/2023 9:51 AM CDT NJ US GUIDE VASC ACCESS Routine 08/15/2023 9:51 AM CDT [place] ARTL CATH/CNULA MONITOR PERC Routine 08/15/2023 9:51 [...] City/[facility]/ZIP Co de Phone Number [facility] [address] [place], [place] [id number] [place] [address] [facility] 200 [place] [address] * Heparin Anti-Xa Assay (09/14/2023 3:19 AM [...] Sumit Holbrook M.D. LAB BLOOD NON ADD-ON [facility] [address] [place] [address], [facility] 200 [place] [address] * IR Nephrostomy Tube Placement Left (09/13/2023 2:20 PM CDT) Anatomical Region Laterality Modality Genito Urinary, Vascular Int erventional RST LOS, Vascular Interventional ARZ LOS, Vascular Interventional FLA LOS Left X-Ray Angiography Impressions 09/13/2023 2:33 PM CDT Left 10 Swiss percutaneous nephrostomy tube placement. EP Narrative 09/13/2023 [...] tract was further dilated and a 10 Swiss nephrostomy tube was placed with loop formed [...] sedation timewas: 9 minutes. IMPRESSION: Left 10 Swiss percutaneous nephrostomy tube placement. EP Latisha CHOUDHARY [...] MICROBIOLOGY - GENERAL ORDERABLES Performing Organization Address City/[facility]/ZIP Co de Phone Number [facility] [address] [place] [address], [facility] [address] [place] [address] * Gram Stain (09/13/2023 2:17 PM CDT) Gram Stain No organisms seen. White blood cells, Rare 09/13/2023 9:02 PM CDT DTL Fluid (Kidney, Left) 09/13/2023 2:17 PM CDT 09/13/2023 3:56 PM CDT Comment:Specimen Source Site : Fluid Latisha Whitehead M.D. LAB MICROBIOLOGY - GENERAL ORDERABLES Performing Organization Address City/[facility]/ZIP Co de Phone Number [facility] [address] [place] [address], [facility] [address] [place] [address] * Fungal Culture, Routine (09/13/2023 2:17 PM CDT) Fungal Culture, Routine No growth after 24 days of incubation. 10/08/2023 1:02 AM CDT DTL Fluid (Kidney, Left) 09/13/2023 2:17 PM CDT 09/13/2023 3:56 PM CDT Comment:Specimen Source Site : Fluid Latisha Whitehead M.D. LAB MICROBIOLOGY - GENERAL ORDERABLES [facility] [address] [place] [address], [facility] [address] [place] [address] * Bacterial Culture, Anaerobic + Susceptibility (09/13/2023 2:17 PM CDT) [facility] Bacterial Culture, Anaerobic + Susc No growth after 14 days of incubation. 09/27/2023 8:04 AM CDT DTL Fluid (Kidney, Left) 09/13/2023 2:17 PM CDT 09/13/2023 3:56 PM CDT Comment:Specimen Source Site : Fluid Latisha Whitehead M.D. LAB MICROBIOLOGY - GENERAL ORDERABLES Performing Organization Address [facility] Co de Phone Number [facility] [address] [place] [address] * APTT (Activated Partial Thromboplastin Time) (09/13/2023 5:56 AM CDT) Only the most recent of18 resultswithin the time period is included. [facility] Activated Partial Thrombopl Time, P 35 25 - 37 sec 09/13/2023 7:14 AM CDT DTL Blood (Blood, Venous) 09/13/2023 5:56 AM CDT 09/13/2023 6:53 AM CDT Sumit Holbrook M.D. LAB BLOOD ADD-ON Performing Organization Address [facility] Co de Phone Number [facility] [address] [place] [address] * (ABNORMAL) Basic Metabolic Panel (09/13/2023 5:56 AM CDT) Only the most recent of14 resultswithin the time period is included. Pathologist [facility] [...] Paula Hernandez M.D. LAB BLOOD ADD-ON [facility] [address] [place] [address], [facility] DTA[facility] 200 [place] [address] * NM Kidney DMSA (09/12/2023 12:21 PM [...] reduced radiotracer uptake asdescribed. Js Yang M.D. [facility] [place] PROCEDURES * Transfuse Red Blood Cells [...] Jeffery Church M.D. LAB URINE ORDERA BLES [facility] [address] [place], [place] [address] [address] [place] [address] * (ABNORMAL) Dipstick, Urine (09/09/2023 11:28 AM [...] Jeffery Church M.D. LAB URINE ORDERA SHELLY [facility] [address] [place], [place] [address] [address] [place] [address] * pH, Random, Urine (09/09/2023 11:28 AM CDT) Only the most recent of2 resultswithin the time period is included. pH, Random, U 6.3 4.5 - 8.0 09/09/2023 12:19 PM CDT DTL Urine 09/09/2023 11:2 8 AM CDT 09/09/2023 11:58 AM CDT Jeffery Church M.D. LAB URINE ORDERA BLES [facility] [address] [place] [address], [facility] [address] [place] [address] * (ABNORMAL) Microscopic Manual (09/09/2023 11:28 AM [...] CDT Jeffery Church M.D. LAB URINE ORDERA [facility] [address] [place] [address], [facility] [address] [place] [address] * (ABNORMAL) Bacterial Culture, Aerobic + Susceptibility, [...] Church M.D. LAB MICROBIOLOGY - GENERAL ORDERABLES [facility] [address] [place] [address], [facility] [address] [place] [address] * (ABNORMAL) Gram Stain, Urine (09/09/2023 11:28 AM CDT) Source Urine, Urine, Straight Catheter 09/09/2023 11:58 AM CDT DTL Gram Stain, U Positive(A) Negative 09/09/2023 12:16 PM CDT DTL Comment: Few Gram-negative bacilli ? Yeast Urine 09/09/2023 11:2 8 AM CDT 09/09/2023 11:58 AM CDT Jeffery Church M.D. LAB URINE ORDERA BLES Performing Organization Address City/[facility]/ZIP Co de Phone Number [facility] [address] [place] [address], [facility] DTL [facility] [address] [place] [address] * (ABNORMAL) Urinalysis, with Microscopic: Urine, Straight [...] 09/09/2023 1:02 PM CDT DTL Predicted Range 2480-53073 mg/24 h 09/09/2023 1:02 PM CDT DTL Comment Micro done on <2.5 mL 09/09/2023 12:27 PM CDT DTL Urine (Urine, Straight Catheter) 09/09/2023 11:28 AM CDT 09/09/2023 11:58 AM CDT Jeffery Church M.D. LAB URINE MARLONA SHELLY Performing Organization Address City/[facility]/ZIP Co de Phone Number [facility] [address] [place] [address], [facility] DTL [facility] [address] [place] [address] * US Kidneys Bilateral with Bladder (09/09/2023 [...] CDT Jeffery Church M.D. LAB BLOOD ADD-ON [facility] [address] [place] [address], [facility] 200 [place] [address] * (ABNORMAL) CBC with Differential, Blood (09/09/2023 [...] CDT Jeffery Church M.D. LAB BLOOD ADD-ON [facility] [address] [place] [address], [facility] STMA [facility] [address] [place] [address] DHPM [facility] 200 [place] [address] * Type and Screen (with Reflex Antibody [...] BANK T EST ORDERABLES Performing Organization Address [facility] Co de Phone Number [facility] [address] [place] [address], [facility] STRM [facility] [address] [place] [address] * Potassium (09/05/2023 4:56 AM CDT) Only the most recent of2 resultswithin the time period is included. Potassium, S 3.6 3.6 - 5.2 mmol/L 09/05/2023 5:49 AM CDT DTL Blood (Blood, Venous) 09/05/2023 4:56 AM CDT 09/05/2023 5:22 AM CDT Roxy Romero M.D. LAB BLOOD ADD-ON Performing Organization Address [facility] Co de Phone Number [facility] [address] [place] [address], [facility] DTA[facility] [address] [place] [address] * FL Fluoro Less Than 1 Hour (08/31/2023 2:12 PM CDT) Only the most recent of2 resultswithin the time period is included. Narrative 152 HOS LOS RST - 08/31/2023 2:13 PM CDT This exam does not require a radiologist review or interpretation. Please refer to the patient's medical record on this date for clinical details. Mayur Alvarze M.D. IMG FLUOROSCOPY PROCEDURES Performing Organization Address City/[facility]/ZIP Co de Phone Number 152 HOS LOS RST * LDA ANE NON-SURGICAL AIRWAY (08/31/2023 12:43 PM CDT) Narrative Benjamin Williamson APRN, PORTFOLIO MGR - 08/31/2023 12:43 PM CDT Benjamin Williamson [...] Vieira M.D., M.S. LAB BLOO D ADD-ON [address] [address] DTL [facility] [address] [place] [address] * Lactate (08/30/2023 9:50 PM CDT) Lactate, P 1.8 0.5 - 2.2 mmol/L 08/30/2023 10:09 PM CDT STMA Blood (Blood, Venous) 08/30/2023 9:50 PM CDT 08/30/2023 9:55 PM CDT Shannan Correa D.O., M.H.A. LAB BLOOD NON ADD-ON [facility] [address] [facility] 200 [place] [address] * DX Chest AP or PA and [...] included. Ventricular Rate ECG/Min 145 BPM MUSE NJ Interval 136 ms MUSE QRSD Interval 64 ms MUSE QT Interval 260 ms MUSE QTC Interval 403 ms MUSE P Tyro 44 degrees MUSE R Tyro 9 degrees MUSE T Wave Tyro -76 degrees MUSE 08/30/2023 7:44 PM CDT [...] Boubacar Brock M.D. LAB BLOOD ADD-ON [facility] [address] [place] [address], [facility]TA[facility] [address] [place] [address] * Magnesium (08/26/2023 3:20 AM CDT) Only the most recent of6 resultswithin the time period is included. Magnesium, S 2.1 1.7 - 2.3 mg/dL 08/26/2023 4:04 AM CDT DT Blood (Blood, Venous) 08/26/2023 3:20 AM CDT 08/26/2023 3:50 AM CDT Boubacar Brock M.D. LAB BLOOD ADD-ON Performing Organization Address City/[facility]/ZIP Co de Phone Number [facility] 200 [place] [address], [facility] [address] [place] [address] * (ABNORMAL) Phosphorus Inorganic (08/23/2023 9:58 PM CDT) Only the most recent of2 resultswithin the time period is included. Phosphorus (Inorganic), S 2.1(L) 2.5 - 4.5 mg/dL 08/23/2023 10:45 PM CDT DT Blood (Blood, Venous) 08/23/2023 9:58 PM CDT 08/23/2023 10:30 PM CDT Paula Hernandez M.D. LAB BLOOD ADD-ON Performing Organization Address [facility] Co de Phone Number [facility] [address] [place] [address], [address] [address] * Triglycerides (08/23/2023 3:42 AM CDT) Only [...] CDT Boubacar Brock M.D. LAB BLOOD ADD-ON [facility] [address] [place] [address], [facility] DTL [facility] [address] [place] [address] * Glucose, POCT (08/22/2023 11:38 PM CDT) Glucose, POCT, B 117 70 - 140 mg/dL 08/23/2023 1:06 AM CDT PCLX Site Capillary 08/23/2023 1:06 AM CDT PCLX Last Intake NPO 08/23/2023 1:06 AM CDT PCLX Blood 08/22/2023 11:3 8 PM CDT 08/23/2023 1:06 AM CDT Unknown Provider LAB POCT ORDERABLES- MANUAL Performing Organization Address City/[facility]/ZIP Co de Phone Number [facility] [address] [place] [address], [facility] PCLX [facility]OC [address] [place] [address] * CT Abdomen Pelvis without IV Contrast [...] fat-containing umbilical hernia. Bibasilar atelectasis. Procedure Note Dcaia Grewal M.D. - 08/22/2023 EXAM: CT ABDOMEN [...] colon likelyrepresenting mild proctocolitis. Paula Hernandez M.D. [facility] CT PROCEDURES * Creatinine, Body Fluid (08/22/2023 [...] transport rates. All other fluids refer to www.Electronifies.com for further interpretive information. This test has been modified from the roller bearing inspector's instructions. Its performance characteristics were determined by [facility] in a manner consistent with CLIA requirements. This test has not been cleared or approved by the U.S. Food and Drug Administration. Fluid Type, Creatinine Fluid, Abdomen 08/22/2023 3:52 PM CDT DTL Fluid (Abdomen) 08/22/2023 3 :30 PM CDT 08/22/2023 6:36 PM CDT Corin Ring M.D. LAB BODY FLUIDS AND STOOLS ORDERABLES Performing Organization Address City/State/[facility] Co de Phone Number [facility] 200 [place] [address], [facility] DTA[facility] 200 [place] [address] * IR PICC Line Placement (08/22/2023 8:35 [...] CDT Latisha Whitehead M.D. LAB BLOOD ADD-ON [address] [address] [address] [place] [address] * Place peripherally inserted central catheter (PICC) [...] Small Saphenous Vein: Not Evaluated. Popliteal Fossa: Lambret's cyst measuring 0.9 x 1.7 x 5.1 [...] and management can be found on the Booster.ly site. Link [email or web address]/topic/clinical-answers/[email or web address] Findings discussed with ??Tayler Greenwood, ?? ([id number]) on 08/17/2023 7:11 PM. Procedure Note Jj [...] management can be found on theAskMayoExpert site. [email or web address]/[email or web address] -[email or web address] 1725 Findings discussed with Tayler Greenwood [place] ([id number]) on 08/17/2023 7:11 PM. IMPRESSION: 1. Aging, [...] BLOOD NON ADD-O N Performing Organization Address City/[facility]/ZIP Co de Phone Number [facility] [address] [place] [address] * Patient Status (08/15/2023 11:56 AM CDT) Only the most recent of2 resultswithin the time period is included. Temperature 36.2 37.0 deg C 08/15/2023 12:04 PM CDT STMA Blood 08/15/2023 11:5 6 AM CDT 08/15/2023 12:03 PM CDT Rae Gonzalez NEIGHBORHOOD PLANNER, PORTFOLIO MGR, DNAP LAB BLOO D NON ADD-ON Performing Organization Address City/[facility]/ZIP Co de Phone Number [facility] 200 [place] [address], [facility] 200 [place] [address] * Sodium, B (08/15/2023 11:56 AM CDT) Only the most recent of2 resultswithin the time period is included. Sodium, B 135 135 - 145 mmol/L 08/15/2023 12:06 PM CDT STMA Blood (Blood, Arterial Line) 08/15/2023 11:56 AM CDT 08/15/2023 12:03 PM CDT Hayde Song M.D. LAB BLOOD NON ADD-O N [facility] [address] [place] [address], [facility] STMA [facility] [address] [place] [address] * (ABNORMAL) Blood Gas with Coox, Arterial [...] Song M.D. LAB BLOOD NON ADD-O N [facility] [address] [place], [place] [address] [place] [address] [address] [place] [address] * Potassium, Blood (08/15/2023 11:56 AM CDT) Only the most recent of2 resultswithin the time period is included. Potassium, B 4.3 3.6 - 5.2 mmol/L 08/15/2023 12:07 PM CDT [facility] (Blood, Arterial Line) 08/15/2023 11:56 AM CDT 08/15/2023 12:03 PM CDT Hayde Song M.D. LAB BLOOD NON ADD-O N Performing Organization Address City/[facility]/ZIP Co de Phone Number [facility] [address] [place] [address], [facility] [address] [place] [address] * (ABNORMAL) Glucose, Whole Blood (08/15/2023 11:56 AM CDT) Only the most recent of2 resultswithin the time period is included. Glucose 144(H) 70 - 140 mg/dL 08/15/2023 12:06 PM CDT [facility] Blood (Blood, Arterial Line) 08/15/2023 11:56 AM CDT 08/15/2023 12:03 PM CDT Hayde Song M.D. LAB BLOOD ADD-ON [facility] [address] [place] [address], [address] [address] * (ABNORMAL) Calcium, Ionized (08/15/2023 11:56 AM CDT) Only the most recent of2 resultswithin the time period is included. Calcium, Ionized, B 4.53(L) 4.65 - 5.30 mg/dL 08/15/2023 12:07 PM CDT STMA Blood (Blood, Arterial Line) 08/15/2023 11:56 AM CDT 08/15/2023 12:03 PM CDT Hayde Song M.D. LAB BLOOD NON ADD-O N [facility] [address] [place] [address], [facility] [address] [place] [address] * [place] ARTL CATH/CNULA MONITOR PERC, [place] US GUIDE VASC ACCESS, LDA ANE ARTERIAL [...] 8:40 AM CDT Rae Gonzalez APRN, CRNA, KENNY ? 08/15/2023 ??9:48 AM Airway Date/Time: 08/15/2023 [...] ETT location: oral VL device: glide scope Arcadia scope blade size: 4 Tube size: 7.5 [...] CDT Comment:Specimen Source Site : Blood Narrative [facility] - 08/20/2023 6:02 AM CDT Received Bactec aerobic and Bactec anaerobic bottles Carlos Alberto Henson M.D. LAB MICROBIOLOGY - G ENERAL ORDERABLES Performing Organization Address City/[facility]/ZIP Co de Phone Number [facility] [address] [place] [address], [facility] [address] [address] * (ABNORMAL) Hepatic Function Panel (08/13/2023 5:27 PM CDT) Pathologist [facility] Bilirubin, Total, S 0.8 0.0 - 1.2 [...] Carlos Alberto Henson M.D. LAB BLOOD ADD-ON [facility] [address] [place] [address], [facility] [address] [place] [address] * Interpretation of Outside CT Abdomen and [...] Advance Directives For more information, please contact: [phone] * Full Code (Latest Code Status on File) Date Activated Date Inactivated Comments 08/30/2023 10:40 PM 09/05/2023 6:15 PM Question Answer Comments Full Code: Not Discussed Due to: Patient not available * Full Code Date Activated Date Inactivated Comments 08/13/2023 4:30 PM 08/26/2023 6:58 PM Question Answer Comments Full Code: Discussed Care Teams Crisis Worker Relationship Specialty Start Date End Date Elsewhere, Pcp PCP - General Internal Medicine 08/13/23
--- OUTSIDE RECORDS SUMMARY | 2023-10-21 08:13 | XMS_ITS | Encounter Summary ---
Author Organization [facility] Address [address] [place] [address] Care Team Providers Care Harness Fitter Name Role Phone Elsewhere, Pcp Primary Care Provider Unavailabl e Encounter Details Date Type Department Care Team (Late st Contact Info) Description 09/21/2023 Clinical Communication Department of Urology in [place], [place] [address] [place] [address] Paula Hernandez M.D. [address] [place] [address] Social History Tobacco Use Types Packs/Day Years Used Date Smoking Tobacco: Never Smokeless Tobacco: Never [facility] Utilities Answer Date Recorded In the past 12 months has [facility] electric, gas, oil, or water [email or web address] threatened to shut off services in your [...] living situation today? I have a [facility] place to live 09/09/2023 Sex and Gender Information Value Date Recorded Sex Assigned at Not on file Gender Identity Not on file Sexual Orientation Not on file documented as of this encounter Miscellaneous Notes * Telephone Encounter - Paula Hernandez M.D. - 09/21/2023 2:37 PM CDT I called the patient's [place] physician who he saw yesterday, 09/19 in [...] on filedocumented in this encounter Care Teams Harness Fitter Relationship Specialty Start Date End Date Elsewhere, Pcp PCP - General Internal Medicine 08/13/23 documented as of this encounter
--- OUTSIDE RECORDS SUMMARY | 2023-10-21 08:13 | XMS_ITS | Referral Summary ---
Author Organization [facility] Address [address] [place] [address] Care Team Providers Care Set Up Operator Tool Name Role Phone Elsewhere, Pcp Primary Care Provider Unavailabl e Source Comments Patient records contain information from all sites at [facility]. For routine questions regarding patient records, call [phone] during business hours, M-F 8:00 AM - 5:00 PM Central Time. Record requests for emergency care only can be directed to [phone] at any time.[facility] Encounters Date Type Department Care Team Description 10/14/2023 Documentation Department of Urology in [place], [place] [address] [place] [address] Paula Hernandez M.D. Catheter Care Plan 10/14/2023 1:00 PM CDT Procedure visit Department of Urology in [place], [place] [address] [place] [address] Paula Hernandez M.D. Khadra Miller R.N. Hematuria 09/27/2023 Clinical Communication Department of Urology in [place], [place] [address] [place] [address] Paula Hernandez M.D. 09/21/2023 Clinical Communication Department of Urology in [place], [place] [address] [place] [address] Paula Hernandez M.D. 09/16/2023 Clinical Communication Department of Urology in [place], [place] [address] [place] [phone] Provider, Unknown follow up questions 09/16/2023 Orders Only Department of Urology in [place], [place] [address] [place] [phone] Paula Hernandez M.D. Hematuria Gross (Primary Dx) 09/15/2023 Clinical Communication [facility] [address] [place] [phone] Yasmine Loco 09/09/2023 7:24 AM CDT - 09/15/2023 5:28 PM CDT Hospital Encounter [facility], [facility], Sixth Floor [address] [place] [phone] Gerri Merrill M.D., Ph.D. Sumit Holbrook M.D. Hematuria (Primary Dx) Discharge Disposition: Home or Self Care 09/09/2023 12:10 PM CDT Ancillary Procedure Department of Nursing 09/09/2023 Documentation Department of Urology in [place], [place] [address] [place] [phone] Ko Victoria M.D. 09/06/2023 Orders Only Section of Hyperbaric Medicine in [place], [place] [address] [place] [phone] Kira Ferraro APRN, C.N.P., M.S.N. 09/06/2023 Clinical Communication [facility] [address] [place] [phone] Yasmine Loco 08/30/2023 7:35 PM CDT - 09/05/2023 4:09 PM CDT Hospital Encounter [facility], First Floor [address] [place] [phone] Kirstin Hughes M.D. Mayur Alvarez M.D. Hematuria (Primary Dx); Tachycardia; Hematuria Gross Discharge Disposition: Home-Health Care [facility] 09/01/2023 10:05 AM CDT Ancillary Procedure Department of Nursing 08/31/2023 12:25 PM CDT Ancillary Procedure Department of General Surgery 08/31/2023 12:34 PM CDT Anesthesia Event [facility] [address] [place] [phone] Joe Stoll M.D. Gran, Terry L, APRN, CRNA 08/31/2023 12:36 PM CDT - 08/31/2023 2:31 PM CDT Surgery [facility] [address] [place] [phone] Mayur Alvarez M.D. CYSTOSCOPY EVACUATION CLOTS 08/30/2023 Documentation Department of Urology in [place], [place] [address] [place] [address] Corin Ring M.D. 08/30/2023 Intake [facility] 08/26/2023 Orders Only Department of Urology in [place], [place] [address] [place] [phone] Paula Hernandez M.D. 08/13/2023 3:42 PM CDT - 08/26/2023 4:11 PM CDT Hospital Encounter [facility], [facility], Sixth Floor [address] [place] [phone] Darnell Garcia M.D. Chow, George K, M.D. Decline Functional Status [R53.81] (Primary Dx); Hematuria [R31.9] Discharge Disposition: Home or Self Care 08/23/2023 12:45 AM CDT Ancillary Procedure Department of Nursing 08/15/2023 8:30 AM CDT Anesthesia Event [facility] [address] [place] [phone] Hayde Song M.D. 08/15/2023 7:55 AM CDT - 08/15/2023 11:23 AM CDT Surgery [facility] [address] [facility] [address] Boubacar Brock M.D. Palliative EXPLORATORY LAPAROTOMY, CYSTOTOMY CLOSURE, RIGHT URETERAL STENT EXCHANGE 08/13/2023 4:35 PM CDT Ancillary Procedure Department of Radiology in [place], [place] [address] [place] [address] Carlos Alberto Henson M.D. 08/13/2023 Intake R[facility] [...] Not Answered [facility] Shift Networkities Answer Date Recorded In the past 12 months has [facility] [employer], gas, oil, or water [employer] threatened to shut off services in your [...] a [facility] place to live 09/09/2023 Sex [...] 09/11/2023 1:04 PM CDT Plan of Treatment Not on file Medical Devices Implanted Type Area Awning Installer Device Identifier Shelf Expiration Date Model / Serial / Lot Clp Hrzn Ti 6 Clp Lg Orng - [id number] Implanted:Qt y: 1 on 08/15/2023 by Boubacar Brock M.D. at [facility] Hardware e.g. pins/screws /rods Abdomen [employer]flex [employer] [id number] 02/29/2028 [id number] / / [id number] Clp Hrzn Ti 6 Clp Lg Orng - [id number] Implanted:Qt y: 1 on 08/15/2023 by Boubacar Brock M.D. at [facility] Hardware e.g. pins/screws /rods Abdomen [employer]flex [employer] [id number] 02/29/2028 [id number] / / [id number] Clp Hrzn Ti 6 Clp Md Monty - [id number] Implanted:Qt y: 1 on 08/15/2023 by Boubacar Brock M.D. at [facility] Hardware e.g. pins/screws /rods Abdomen [employer] [id number] 03/13/2028 [id number] / / [id number] Clp Hrzn Ti 6 Clp Monty - [id number] Implanted:Qt y: 1 on 08/15/2023 by Boubacar Brock M.D. at [facility] Hardware e.g. pins/screws /rods Abdomen [employer] [id number] 03/21/2028 [id number] / / [id number] Stnt Uret Inl 6fx24 - [id number] Implanted:Qt y: 1 on 08/15/2023 by Jakob De Paz M.D. at [facility] Ureteral Stent N/A: Ureter C.[employer].Bard [id number] 11/18/2027 [id number] / / [id number] Procedures Procedure Name Priority Date/Time Associated Diagnosis [...] LINE INSERTION Routine 08/15/2023 9:51 AM CDT [place] US GUIDE VASC ACCESS Routine 08/15/2023 9:51 AM CDT [place] ARTL CATH/CNULA MONITOR PERC Routine 08/15/2023 9:51 [...] Paula Hernandez M.D. LAB BLOOD ADD-ON [facility] [address] [place] [address], [facility] [address] [place] [address] * Heparin Anti-Xa Assay (09/14/2023 3:19 AM CDT) Only the most recent of16 resultswithin the time period is included. Heparin Anti-Xa, P 0.11 IU/mL 2023 4:07 AM CDT [facility] Comment: UFH therapeutic range: ?? 0.30-0.70 IU/mL [...] Sumit Holbrook M.D. LAB BLOOD NON ADD-ON [address] [address], [address] [address] * IR Nephrostomy Tube Placement Left (09/13/2023 2:20 PM CDT) Anatomical Region Laterality Modality Genito Urinary, Vascular Int erventional RST LOS, Vascular Interventional ARZ LOS, Vascular Interventional FLA LOS Left X-Ray Angiography Impressions 09/13/2023 2:33 PM CDT Left 10 Chinese percutaneous nephrostomy tube placement. EP Narrative 09/13/2023 [...] tract was further dilated and a 10 Chinese nephrostomy tube was placed with loop formed [...] sedation timewas: 9 minutes. IMPRESSION: Left 10 Chinese percutaneous nephrostomy tube placement. EP Latisha Whitehead [...] Whitehead M.D. LAB MICROBIOLOGY - GENERAL ORDERABLES [facility] [address] [place] [address], [place] [facility] [address] [place] [address] * Gram Stain (09/13/2023 2:17 PM CDT) Gram Stain No organisms seen. White blood cells, Rare 09/13/2023 9:02 PM CDT DTL Fluid (Kidney, Left) 09/13/2023 2:17 PM CDT 09/13/2023 3:56 PM CDT Comment:Specimen Source Site : Fluid Latisha Whitehead M.D. LAB MICROBIOLOGY - GENERAL ORDERABLES [facility] [address] [place] [address], [facility] [address] [place] [address] * Fungal Culture, Routine (09/13/2023 2:17 PM CDT) Fungal Culture, Routine No growth after 24 days of incubation. 10/08/2023 1:02 AM CDT DTL Fluid (Kidney, Left) 09/13/2023 2:17 PM CDT 09/13/2023 3:56 PM CDT Comment:Specimen Source Site : Fluid Latisha Whitehead M.D. LAB MICROBIOLOGY - GENERAL ORDERABLES Performing Organization Address [facility]/ZIP Co de Phone Number [facility] [address] [place], [place] [address] [place] [address] [address] [place] [address] * Bacterial Culture, Anaerobic + Susceptibility (09/13/2023 2:17 PM CDT) Bacterial Culture, Anaerobic + Susc No growth after 14 days of incubation. 09/27/2023 8:04 AM CDT DTL Fluid (Kidney, Left) 09/13/2023 2:17 PM CDT 09/13/2023 3:56 PM CDT Comment:Specimen Source Site : Fluid Latisha Whitehead M.D. LAB MICROBIOLOGY - GENERAL ORDERABLES [facility] [address] [place] [address], [facility] [address] [place] [address] * APTT (Activated Partial Thromboplastin Time) (09/13/2023 5:56 AM CDT) Only the most recent of18 resultswithin the time period is included. Pathologist [facility] Activated Partial Thrombopl Time, P 35 25 - 37 sec 09/13/2023 7:14 AM CDT DTL Blood (Blood, Venous) 09/13/2023 5:56 AM CDT 09/13/2023 6:53 AM CDT Sumit Holbrook M.D. LAB BLOOD ADD-ON [facility] [address] [place] [address], [facility] [address] [place] [address] * (ABNORMAL) Basic Metabolic Panel (09/13/2023 5:56 AM CDT) Only the most recent of14 resultswithin the time period is included. [facility] Potassium, S 3.7 3.6 - 5.2 mmol/L [...] Paula Hernandez M.D. LAB BLOOD ADD-ON [facility] [address] [place] [address], [place] [facility] [address] [place] [address] * NM Kidney DMSA (09/12/2023 12:21 PM [...] LOS, Ul trasound ARZ LOS, Ultrasound FLA [facility] Ultrasound Impressions 09/11/2023 8:55 AM CDT [...] NON RAD IMAGI NG PROCEDURES IIMI NA * Osmolality, Urine (09/09/2023 11:28 AM CDT) Only the most recent of2 resultswithin the time period is included. Osmolality, U 380 150 - 1150 mOsm/kg 09/09/2023 12:19 PM CDT DTL Urine 09/09/2023 11:2 8 AM CDT 09/09/2023 11:58 AM CDT Jeffery Church M.D. LAB URINE ORDERA BLES [facility] [address] [place] [address], [facility] DTL [facility] [address] [place] [address] * (ABNORMAL) Dipstick, Urine (09/09/2023 11:28 AM [...] LAB URINE ORDERA BLES Performing Organization Address City/[facility] Co de Phone Number [facility] [address] [place] [address] * pH, Random, Urine (09/09/2023 11:28 AM CDT) Only the most recent of2 resultswithin the time period is included. pH, Random, U 6.3 4.5 - 8.0 09/09/2023 12:19 PM CDT DTL Urine 09/09/2023 11:2 8 AM CDT 09/09/2023 11:58 AM CDT Jeffery Church M.D. LAB URINE ORDERA SHELLY Performing Organization Address [facility] de Phone Number [facility] [address] [place] [address], [facility] [address] [place] [address] * (ABNORMAL) Microscopic Manual (09/09/2023 11:28 AM [...] Jeffery Church M.D. LAB URINE ORDERA BLES [facility] [address] [place] [address], [facility] [address] [place] [address] * (ABNORMAL) Bacterial Culture, Aerobic + Susceptibility, [...] Enterobacter cloacae complex Ampicillin + Sulbactam SUSCEPTIBILITY, ALYO (MCG/ML) mcg/mL: Resistant Enterobacter cloacae complex Meropenem [...] MICROBIOLOGY - GENERAL ORDERABLES Performing Organization Address City/[facility] Co de Phone Number [facility] [address] [place], [place] [id number] [place] [address] [facility] [address] [place] [address] * (ABNORMAL) Gram Stain, Urine (09/09/2023 11:28 AM CDT) Source Urine, Urine, Straight Catheter 09/09/2023 11:58 AM CDT DTL Gram Stain, U Positive(A) Negative 09/09/2023 12:16 PM CDT DTL Comment: Few Gram-negative bacilli ? Yeast Urine 09/09/2023 11:2 8 AM CDT 09/09/2023 11:58 AM CDT Jeffery Church M.D. LAB URINE ORDERA BLES Performing Organization Address [facility] Co de Phone Number [facility] [address] [place] [address], [facility] [address] [place] [address] * (ABNORMAL) Urinalysis, with Microscopic: Urine, Straight [...] 09/09/2023 1:02 PM CDT DTL Predicted Range 2480-21043 mg/24 h 09/09/2023 1:02 PM CDT DTL Comment Micro done on <2.5 mL 09/09/2023 12:27 PM CDT DTL Urine (Urine, Straight Catheter) 09/09/2023 11:28 AM CDT 09/09/2023 11:58 AM CDT Jeffery Church M.D. LAB URINE ORDERA [facility] [place] [address], [facility] [address] [place] [address] * US Kidneys Bilateral with Bladder (09/09/2023 [...] clot within the urinarybladder. Jeffery Church M.D. IM US PROCEDURE S * Prothrombin Time (PT) [...] CDT Jeffery Church M.D. LAB BLOOD ADD-ON [facility] [address] [place] [address], [facility] [address] [place] [address] * (ABNORMAL) CBC with Differential, Blood (09/09/2023 [...] M.D. LAB BLOOD ADD-ON Performing Organization Address City/[facility]/ZIP Co de Phone Number [facility] [address] [place] [address], [facility] STMA [facility] [address] [place] [address] DHPM [facility] [address] [place] [address] * Type and Screen (with Reflex Antibody [...] BANK T EST ORDERABLES Performing Organization Address City/[facility]/ZIP Co de Phone Number [facility] [address] [place] [address], [facility] STRM [facility] [address] [place] [address] * Potassium (09/05/2023 4:56 AM CDT) Only the most recent of2 resultswithin the time period is included. Potassium, S 3.6 3.6 - 5.2 mmol/L 09/05/2023 5:49 AM CDT DTL Blood (Blood, Venous) 09/05/2023 4:56 AM CDT 09/05/2023 5:22 AM CDT Roxy Romero M.D. LAB BLOOD ADD-ON Performing Organization Address City/[facility] Co de Phone Number [facility] [address] [place] [address], [facility] [address] [place] [address] * [place] Fluoro Less Than 1 Hour [...] M.D. IMG FLUOROSCOPY PROCEDURES Performing Organization Address [facility] Co de Phone Number 152 HOS [...] Vieira M.D., M.S. LAB BLOO D ADD-ON [facility] [address] [place] [address], [facility] [address] [place] [address] * Lactate (08/30/2023 9:50 PM CDT) Lactate, P 1.8 0.5 - 2.2 mmol/L 08/30/2023 10:09 PM CDT STMA Blood (Blood, Venous) 08/30/2023 9:50 PM CDT 08/30/2023 9:55 PM CDT Shannan N Eggum D.O., M.H.A. LAB BLOOD NON ADD-ON [facility] [address] [place] [address], [facility] [address] [place] [address] * DX Chest AP or PA and [...] included. Ventricular Rate ECG/Min 145 BPM MUSE [place] Interval 136 ms MUSE QRSD Interval 64 ms MUSE QT Interval 260 ms MUSE QTC Interval 403 ms MUSE P Corning 44 degrees MUSE R Corning 9 degrees MUSE T Wave Corning -76 degrees MUSE 08/30/2023 7:44 PM CDT [...] M.D. LAB BLOOD ADD-ON Performing Organization Address City/[facility]/ZIP Co de Phone Number [facility] [address] [place] [address], [place] [address] * Magnesium (08/26/2023 3:20 AM CDT) Only the most recent of6 resultswithin the time period is included. Magnesium, S 2.1 1.7 - 2.3 mg/dL 08/26/2023 4:04 AM CDT DTL Blood (Blood, Venous) 08/26/2023 3:20 AM CDT 08/26/2023 3:50 AM CDT Boubacar Brock M.D. LAB BLOOD ADD-ON Performing Organization Address City/[facility]/ZIP Co de Phone Number [facility] [address] [place] [address], [facility] [address] [place] [address] * (ABNORMAL) Phosphorus Inorganic (08/23/2023 9:58 PM CDT) Only the most recent of2 resultswithin the time period is included. Pathologist [facility] Phosphorus (Inorganic), S 2.1(L) 2.5 - 4.5 mg/dL 08/23/2023 10:45 PM CDT DT Blood (Blood, Venous) 08/23/2023 9:58 PM CDT 08/23/2023 10:30 PM CDT Paula Hernandez M.D. LAB BLOOD ADD-ON Performing Organization Address City/[facility]/ZIP Co de Phone Number [facility] [address] [place], [place] [address] [place] [address] * Triglycerides (08/23/2023 3:42 AM CDT) Only the most recent of2 resultswithin the time period is included. [facility] Triglycerides 106 mg/dL 08/23/2023 4:50 AM CDT DTL Comment: ----REFERENCE VALUE---- Normal: <150 mg/dL Borderline High: 150-199 mg/dL High: 200-499 mg/dL Very High: > or =500 mg/dL Fasting (8 HR or more) Yes 08/23/2023 4:19 AM CDT DTL Blood (Blood, Venous) 08/23/2023 3:42 AM CDT 08/23/2023 4:19 AM CDT Boubacar Brock M.D. LAB BLOOD ADD-ON [facility] [address] [place] [address], [facility] [address] [place] [address] * Glucose, POCT (08/22/2023 11:38 PM CDT) [facility] Glucose, POCT, B 117 70 - 140 mg/dL 08/23/2023 1:06 AM CDT PCLX Site Capillary 08/23/2023 1:06 AM CDT PCLX Last Intake NPO 08/23/2023 1:06 AM CDT PCLX Blood 08/22/2023 11:3 8 PM CDT 08/23/2023 1:06 AM CDT Unknown Provider LAB POCT ORDERABLES- MANUAL POC [facility] [address] [place] [address], [facility] PCLX [facility] POC [address] [place] [address] * CT Abdomen Pelvis without IV Contrast [...] colon likelyrepresenting mild proctocolitis. Paula Hernandez M.D. [facility] CT PROCEDURES * Creatinine, [...] transport rates. All other fluids refer to www.Meographs.com for further interpretive information. This test has been modified from the emt i/99's instructions. Its performance characteristics were determined by [facility] in a manner consistent with CLIA requirements. This test has not been cleared or approved by the U.S. Food and Drug Administration. Fluid Type, Creatinine Fluid, Abdomen 08/22/2023 3:52 PM CDT DTL Fluid (Abdomen) 08/22/2023 3 :30 PM CDT 08/22/2023 6:36 PM CDT Corin Ring M.D. LAB BODY FLUIDS AND STOOLS ORDERABLES [facility] [address] [place] [address], [facility] [address] [place] [address] * IR PICC Line Placement (08/22/2023 8:35 AM CDT) Anatomical Region Laterality Modality Chest, Pelvis, Abdomen, Vasc ular Interventional RST LOS, Vascular Interventional ARZ LOS, Vascular Interventional FLA LOS N/A X-Ray Angiography Impressions 08/22/2023 9:05 AM CDT Placement of a right IJ vein single-lumen 4 Chinese tunneled PowerPICC ready for immediate use. NR [...] advanced into the IVC and a 4 Chinese dilator advanced over the wire and attached to a one-way stopcock. A suitable exit site in the right anterior chest was anesthetized and a small incision made. A 4 Chinese single-lumen PowerPICC was then tunneled from the [...] Wireadvanced into the IVC and a 4 Chinese dilator advanced over the wire andattached to a one-way stopcock. A suitable exit site in the right anteriorchest was anesthetized and a small incision made. A 4 Chinese single-lumen PowerPICC was then tunneled fromthe skin [...] of a right IJ vein single-lumen 4 Chinese tunneled PowerPICCready for immediate use. NR Kimi [...] Latisha Whitehead M.D. LAB BLOOD ADD-ON [facility] [address] [place] [address], [facility] [address] [place] [address] * Place peripherally inserted central catheter (PICC) [...] the atrophic right kidney. Lizette Harvey M.D. [facility] CT PROCEDUR ES * [...] and management can be found on the GetJob site. Link [email or web address] Findings discussed with ??Tayler Greenwood, ?? ([id number]) on 08/17/2023 7:11 PM. Procedure Note Jj [...] management can be found on theAskMayoExpert site. [email or web address] -[email or web address] 1725 Findings discussed with Tayler Greenwood MD ([id number]) on 08/17/2023 7:11 PM. IMPRESSION: 1. Aging, [...] NON ADD-O N [facility] [address] [place] [address] * Patient Status (08/15/2023 11:56 AM CDT) Only the most recent of2 resultswithin the time period is included. Temperature 36.2 37.0 deg C 08/15/2023 12:04 PM CDT [facility] Blood 08/15/2023 11:5 6 AM CDT 08/15/2023 12:03 PM CDT Rae Gonzalez APRN, GAVIN, DNAP LAB BLOO D NON ADD-ON Performing Organization Address City/[facility]/ZIP Co de Phone Number [facility] [address] [place] [address] * Sodium, B (08/15/2023 11:56 AM CDT) Only the most recent of2 resultswithin the time period is included. Sodium, B 135 135 - 145 mmol/L 08/15/2023 12:06 PM CDT ST[facility] Blood (Blood, Arterial Line) 08/15/2023 11:56 AM CDT 08/15/2023 12:03 PM CDT Hayde Song M.D. LAB BLOOD NON ADD-O N [facility] [address] [place] [address] * (ABNORMAL) Blood Gas with Coox, Arterial [...] N [facility] [address] [place] [address], [facility] [address] [place] [address] * Potassium, Blood (08/15/2023 11:56 AM CDT) Only the most recent of2 resultswithin the time period is included. Potassium, B 4.3 3.6 - 5.2 mmol/L 08/15/2023 12:07 PM CDT [facility] Blood (Blood, Arterial Line) 08/15/2023 11:56 AM CDT 08/15/2023 12:03 PM CDT Hayde Song M.D. LAB BLOOD NON ADD-O N [facility] [address] [place] [address] * (ABNORMAL) Glucose, Whole Blood (08/15/2023 11:56 AM CDT) Only the most recent of2 resultswithin the time period is included. Glucose 144(H) 70 - 140 mg/dL 08/15/2023 12:06 PM CDT [facility] Blood (Blood, Arterial Line) 08/15/2023 11:56 AM CDT 08/15/2023 12:03 PM CDT Hayde Song M.D. LAB BLOOD ADD-ON Performing Organization Address [facility] Co de Phone Number [facility] [address] [place] [address] * (ABNORMAL) Calcium, Ionized (08/15/2023 11:56 AM CDT) Only the most recent of2 resultswithin the time period is included. Calcium, Ionized, B 4.53(L) 4.65 - 5.30 mg/dL 08/15/2023 12:07 PM CDT [facility] Blood (Blood, Arterial Line) 08/15/2023 11:56 AM CDT 08/15/2023 12:03 PM CDT Hayde Song M.D. LAB BLOOD NON ADD-O N Performing Organization Address City/[facility]/ZIP Co de Phone Number [facility] [address] [place] [address], [address] [address] [address] * [place] ARTL CATH/CNULA MONITOR [place], [place] US GUIDE VASC ACCESS, LDA ANE ARTERIAL LINE INSERTION, MC ANE INVASIVE CATH WITH ULTRASOUND (08/15/2023 9:51 AM CDT) Narrative Rae Gonzalez, OCCUP THERAPIST, DENTAL ASSISTING INSTRUCTOR, DNAP - 08/15/2023 9:51 AM CDT Rae Gonzalez OCCUP THERAPIST, DENTAL ASSISTING INSTRUCTOR, DNAP ? 08/15/2023 ??9:52 AM Invasive Catheter [...] (08/15/2023 8:40 AM CDT) Narrative Rae Gonzalez, OCCUP THERAPIST, DENTAL ASSISTING INSTRUCTOR, DNAP - 08/15/2023 8:40 AM CDT Rae Gonzalez, OCCUP THERAPIST, DENTAL ASSISTING INSTRUCTOR, DNAP ? 08/15/2023 ??9:48 AM Airway Date/Time: 08/15/2023 8:40 AM Performed by: Rae Gonzalez APRN, DENTAL ASSISTING INSTRUCTOR, DNAP Authorized by: Hayde Song M.D. ?? Patient location during procedure: OR / Procedure Area PROCEDURE DETAILS: Mask difficulty assessment: not attempted Final airway type: video laryngoscope Laryngeal Manipulation: no ?? Final best view of glottic structures - Cormack/Lehane Score: grade 1 ETT location: oral VL device: glide scope [place] scope blade size: 4 Tube size: 7.5 [...] Alberto Henson M.D. LAB MICROBIOLOGY - [facility] ORDERABLES [facility] [address] [place] [address], [facility] [address] [place] [address] * (ABNORMAL) Hepatic Function Panel (08/13/2023 5:27 [...] ADD-ON [facility] [address] [place] [address], [facility] [address] [place] [address] * Interpretation of Outside CT Abdomen and [...] Advance Directives For more information, please contact: [phone] * Full Code (Latest Code Status on File) Date Activated Date Inactivated Comments 08/30/2023 10:40 PM 09/05/2023 6:15 PM Question Answer Comments Full Code: Not Discussed Due to: Patient not available * Full Code Date Activated Date Inactivated Comments 08/13/2023 4:30 PM 08/26/2023 6:58 PM Question Answer Comments Full Code: Discussed Care Teams Set Up Operator Tool Relationship Specialty Start Date End Date Elsewhere, Pcp PCP - General Internal Medicine 08/13/23
--- OUTSIDE RECORDS SUMMARY | 2023-10-21 08:13 | XMS_ITS | Encounter Summary ---
Author Organization [facility] Address [address] [place] [address] Care Team Providers Care Housing Management Officer Name Role Phone Elsewhere, Pcp Primary Care Provider Unavailabl e Encounter Details Date Type Department Care Team (Late st Contact Info) Description 09/27/2023 Clinical Communication Department of Urology in [place], [place] [address] [place] [phone] Paula Hernandez M.D. [address] [place] [address] Social History Tobacco Use Types Packs/Day Years Used Date Smoking Tobacco: Never Smokeless Tobacco: Never [facility] Utilities Answer Date Recorded In the past 12 months has [facility] electric, gas, oil, or water [employer] threatened to shut off services in your [...] [facility] place to live 09/09/2023 [...] filedocumented in this encounter Care Teams Housing Management Officer Relationship Specialty Start Date End Date Elsewhere, Pcp PCP - General Internal Medicine 08/13/23 documented as of this encounter
--- OUTSIDE RECORDS SUMMARY | 2023-10-21 08:13 | XMS_ITS ---
Author Organization [facility] Address [address] [place] [address] Care Team Providers Care Security Services Specialist Name Role Phone Unavailable Unavailable Unavailable Surgery Details Not on file Complications Check Surgery Details section. Procedure Estimated Blood Loss Check Surgery Details section. Procedure Findings Check Surgery Details section. Procedure Specimens Taken Check Surgery Details section.
--- OUTSIDE RECORDS SUMMARY | 2023-10-21 08:13 | XMS_ITS | Encounter Summary ---
Author Organization [facility] Address [address] [place] [address] Care Team Providers Care District Manager Postal Service Name Role Phone Elsewhere, Pcp Primary Care Provider Unavailabl e Reason for Referral * Outpatient (Routine) - Authorized Specialty Diagnoses / Procedures Referred By Contac t Referred To Contact Diagnoses Hematuria Gross Procedures DX Chest AP or PA and Lateral 2 Views Paula Hernandez M.D. [address] [place] [address] [facility] Referral ID Status Reason Start Date Expiration Date V isits Requested Visits Authorized [id number] Authorized 09/16/2023 09/15/2024 1 1 Encounter Details Date Type Department Care Team (Late st Contact Info) Description 09/16/2023 Orders Only Department of Urology in [place], [place] [address] [place] [phone] Paula Hernandez M.D. [address] [place] [phone] Hematuria Gross (Primary Dx) Social History Tobacco Use Types Packs/Day Years Used Date Smoking Tobacco: Never Smokeless Tobacco: Never [facility] Utilities Answer Date Recorded In the [...] of this encounter Plan of Treatment Scheduled Orders [...] documented as of this encounter Care Teams District Manager Postal Service Relationship Specialty Start Date End Date Elsewhere, Pcp PCP - General Internal Medicine 08/13/23 documented as of this encounter
--- OUTSIDE RECORDS SUMMARY | 2023-10-21 08:13 | XMS_ITS ---
Author Organization [facility] Address [address] [place] [address] Care Team Providers Care Proof Reader Name Role Phone Elsewhere, Pcp Primary Care [...] On Elapsed Days Session Dose Total Dose [id number] 04/28/2020 32 300 cGy 6,000 cGy Lifetime Dose Tracking * Chemical Lifetime Dose Automatic Entry Manual Entr y Radiation 20.4 mGy 20.4 mGy 0 mGy Fluoro Time 2.005 minutes 2.005 minutes 0 minutes DAP (uGy-m2) 479.6 uGy-m2 479.6 uGy-m2 0 uGy-m2
--- OUTSIDE RECORDS SUMMARY | 2023-10-21 08:13 | XMS_ITS | Encounter Summary ---
Author Organization [facility] Address [address] [place] [address] Care Team Providers Care Import Export Manager Name Role Phone Elsewhere, Pcp Primary Care Provider Unavailabl e Reason for Visit * Reason Comments Urinary Retention * Outpatient (Routine) - Closed Specialty Diagnoses / Procedures Referred By Leyla t Referred To Contact Diagnoses Hematuria Procedures URO Urethral cath change (UCC) Paula Hernandez M.D. [address] [place] [phone] [facility] Referral ID Status Reason Start Date Expiration Date Visits Re quested Visits Authorized [id number] Closed 09/15/2023 09/14/2024 1 1 Encounter Details Date Type Department Care Team (Late st Contact Info) Description 10/14/2023 1:00 PM CDT Procedure visit Department of Urology in [place], [place] [address] [place] [phone] Paula Hernandez M.D. [address] [place] [phone] Khadra Miller R.N. [address] [place] [phone] Hematuria Social History Tobacco Use Types Packs/Day Years Used Date Smoking Tobacco: Never Smokeless Tobacco: Never [facility] Utilities [...] as of this encounter Progress Notes * Khadra Miller, R.N. - 10/14/2023 1:00 PM CDT CHIEF COMPLAINT/REASON FOR VISIT Kalen Vega is here for indwelling jon catheter exchange as ordered by Dr Paula Hernandez on October 12 2023. IMPRESSION/REPORT/PLAN Patient's last catheter exchange was 09/09/23 Patient transition opportunities were reviewed/discussed with the patient: Yes, patient meets complex criteria for catheter exchanges on GO7S: history of false passage within the last three months. Nursing Intervention (also see LDA): The patient was prepped in sterile fashion using Betadine. Current catheter was removed intact. 20 Coude Red Rubber inserted without difficulty. 10mL's in balloon. Catheter was irrigated. pink urine returned. Catheter was connected to leg bag. Secured catheter with Flexi-Trak. See flowsheets for additional details. Patient tolerated visit well. No further questions or concerns at this time. Patient's next catheter exchange is due on: November 14 2023 and will be completed by local provider. Patient dismissed. documented in this encounter Miscellaneous Notes * Addendum Note - Khadra Miller RJonahN. - 10/14/2023 1:00 PM CDTAddended by: KHADRA MILLER on: 10/14/2023 01:25 PM Modules accepted: Level of Service documented in this encounter Plan of Treatment Not on file documented as of this encounter Visit Diagnoses Diagnosis Hematuria documented in this encounter Care Teams Import Export Manager Relationship Specialty Start Date End Date Elsewhere, Pcp PCP - General Internal Medicine 08/13/23 documented as of this encounter
--- OUTSIDE RECORDS SUMMARY | 2023-10-21 08:13 | XMS_ITS | Encounter Summary ---
Author Organization [facility] Address [address] [place] [address] Care Team Providers Care Administrative Court Justice Name Role Phone Elsewhere, Pcp Primary Care Provider Unavailabl e Reason for Visit * Reason Onset Date Comments follow up questions 09/16/2023 Encounter Details Date Type Department Care Team (Latest Contact Info) Description 09/16/2023 Clinical Communication Department of Urology in [place], [place] [address] [place] [address] Provider, Unknown follow up questions Social History Tobacco Use Types Packs/Day Years Used Date Smoking Tobacco: Never Smokeless Tobacco: Never [employer] Utilities Answer Date Recorded In the past 12 months has [facility] [employer], gas, oil, or water [employer] threatened to shut off services in your [...] your living situation today? I have a [facility] place to live 09/09/2023 Sex [...] documented as of this encounter Care Teams Administrative Court Justice Relationship Specialty Start Date End Date Elsewhere, Pcp PCP - General Internal Medicine 08/13/23 documented as of this encounter
--- OUTSIDE RECORDS SUMMARY | 2023-10-21 08:13 | XMS_ITS | Encounter Summary ---
Author Organization [facility] Address [address] [place] [address] Care Team Providers Care Consulting Application Engineer Name Role Phone Elsewhere, Pcp Primary Care Provider Unavailabl e Reason for Visit * Reason Comments Catheter Care Plan Encounter Details Date Type Department Care Team (Late st Contact Info) Description 10/14/2023 Documentation Department of Urology in [place], [place] [address] [place] [phone] Paula Hernandez M.D. [address] [place] [phone] Catheter Care Plan Social History Tobacco Use Types Packs/Day Years Used Date Smoking Tobacco: Never Smokeless Tobacco: Never [facility] Utilities Answer Date Recorded In the past 12 months has [facility] electric, gas, oil, or water [...] have a [facility] place to live 09/09/2023 Sex and Gender Information Value Date Recorded Sex Assigned at Not on file Gender Identity Not on file Sexual Orientation Not on file documented as of this encounter Progress Notes * Ashleigh Ferreira R.N. - 10/14/2023 2:05 PM CDT Treatment Summary and Care Plan - Catheter Exchange General Information [facility]/ Patient Name: Kalen Vega Date: 1940 Health Care Provider(s) Medical Provider(s) Cesar Mccollum M.D. Institution: No address on file [place], [place] Urology Provider(s) Chief Urology residents Last seen by Paula Hernandez M.D. Institution: [facility] Treatment Summary Diagnosis Hydronephrosis; hematuria; metastatic prostate cancer; radiation cystitis Treatment Surgery []Yes [x] No Surgery Date(s) Surgical Procedure/Location/Findings Current Treatment Information/Follow-up Care Plan Frequency of Catheter Changes (i.e. every 4 weeks) every 4 weeks Catheter Information Type: Coude red rubber Size:20F Reference #: [id number] Catheter Prescription Expires NA Last seen by Urology Provider 09/15/2023 Catheter Balloon Inflated to 10mL's Irrigation Needed []Yes [x]No Frequency: Amount: Continue to see your primary care provider for all general health care recommended for a man or woman your age, including ongoing catheter changes. Below are symptoms that should be brought to the attention of your local provider: A new, persistent, or worsening symptom Prepared By: Ashleigh Ferreira R.N. Date: 10/14/2023 documented in this encounter Plan of Treatment Not on file documented as of this encounter Visit Diagnoses Not on filedocumented in this encounter Care Teams Consulting Application Engineer Relationship Specialty Start Date End Date Elsewhere, Pcp PCP - General Internal Medicine 08/13/23 documented as of this encounter
--- OUTSIDE RECORDS SUMMARY | 2023-10-21 08:14 | XMS_ITS | Encounter Summary ---
Author Organization [facility] Address [address] [place] [address] Care Team Providers Care Chief Learning Officer Name Role Phone Elsewhere, Pcp Primary Care Provider Unavailabl e Reason for Referral * Outpatient (Routine) - Authorized Specialty Diagnoses / Procedures Referred By Contac t Referred To Contact Urology Diagnoses Hematuria Paula Benton M.D. [address] [place] [address] [facility] Referral ID Status Reason Start Date Expiration Date V isits Requested Visits Authorized [id number] Authorized 09/15/2023 03/16/2025 1 1 Encounter Details Date Type Department Care Team (Late st Contact Info) Description 09/15/2023 Clinical Communication [facility] [address] [place] [phone] Yasmine Loco Social History Tobacco Use Types Packs/Day Years Used Date Smoking Tobacco: Never Smokeless Tobacco: Never [facility] Utilities Answer Date Recorded In the [...] your living situation today? I have a [facility] place to live 09/09/2023 Sex and Gender Information Value Date Recorded Sex Assigned at Not on file Gender Identity Not on file Sexual Orientation Not on file documented as of this encounter Plan of Treatment Scheduled Referrals Name Type Priority Associated Diagnoses [...] documented as of this encounter Care Teams Chief Learning Officer Relationship Specialty Start Date End Date Elsewhere, Pcp PCP - General Internal Medicine 08/13/23 documented as of this encounter
--- OUTSIDE RECORDS SUMMARY | 2023-10-21 08:14 | XMS_ITS | Encounter Summary ---
Author Organization [facility] Address [address] [place] [address] Care Team Providers Care Business Trainer Name Role Phone Elsewhere, Pcp Primary Care Provider Unavailabl e Encounter Details Date Type Department Care Team (Late st Contact Info) Description 09/06/2023 Clinical Communication [facility] [address] [place] [address] Yasmine Loco Social History Tobacco Use Types Packs/Day Years Used Date Smoking Tobacco: Never Smokeless Tobacco: Never [facility] Utilities Answer Date Recorded In the past 12 months has e [employer], gas, oil, or water [employer] threatened to shut off services in your [...] your living situation today? I have a [facility] place [facility] live 09/09/2023 Sex and Gender Information Value Date Recorded Sex Assigned at Not on file Gender Identity Not on file Sexual Orientation Not on file documented as of this encounter Plan of Treatment Not on file documented as of this encounter Visit Diagnoses Diagnosis Hematuria Gross- Primary documented in this encounter Care Teams Business Trainer Relationship Specialty Start Date End Date Elsewhere, Pcp PCP - General Internal Medicine 08/13/23 documented as of this encounter
--- OUTSIDE RECORDS SUMMARY | 2023-10-21 08:14 | XMS_ITS | Encounter Summary ---
Author Organization [facility] Address [address] [place] [address] Care Team Providers Care Milk Drying Machine Operator Name Role Phone Elsewhere, Pcp Primary Care Provider Unavailabl e Encounter Details Date Type Department Care Team (Late st Contact Info) Description 09/09/2023 Documentation Department of Urology in [place], [place] [address] [place] [address] Ko Victoria M.D. [address] [place] [address] Social History Tobacco Use Types Packs/Day Years Used Date Smoking Tobacco: Never Smokeless Tobacco: Never [facility] Utilities Answer Date Recorded In the past 12 months has [facility] electric, gas, oil, or water [employer] threatened to shut off services in your [...] your living situation today? I have a [facility] place to live 09/09/2023 Sex and Gender [...] on filedocumented in this encounter Care Teams Milk Drying Machine Operator Relationship Specialty Start Date End Date Elsewhere, Pcp PCP - General Internal Medicine 08/13/23 documented as of this encounter
--- OUTSIDE RECORDS SUMMARY | 2023-10-21 08:14 | XMS_ITS | Encounter Summary ---
Author Organization [facility] Address [address] [place] [address] Care Team Providers Care Practice Specialist Name Role Phone Elsewhere, Pcp Primary Care Provider Unavailabl e Encounter Details Date Type Department Care Team (Late st Contact Info) Description 09/06/2023 Orders Only Section of Hyperbaric Medicine in [place], [place] [address] [place] [address] Kira Ferraro, ARUN, C.N.P., M.S.N. [address] [place] [address] Social History Tobacco Use Types Packs/Day Years [...] [facility] 09/09/2023 [...] documented as of this encounter Care Teams Practice Specialist Relationship Specialty Start Date End Date Elsewhere, Pcp PCP - General Internal Medicine 08/13/23 documented as of this encounter
--- OUTSIDE RECORDS SUMMARY | 2023-10-21 08:14 | XMS_ITS | Encounter Summary ---
Author Organization [facility] Address [address] [place] [address] Care Team Providers Care Director Non Profit Name Role Phone Elsewhere, Pcp Primary Care Provider Unavailabl e Encounter Details Date Type Department Care Team (Late st Contact Info) Description 09/09/2023 12:10 PM CDT Ancillary Procedure Department of Nursing Social History Tobacco Use Types Packs/Day Years Used Date Smoking Tobacco: Never Smokeless Tobacco: Never [facility] Utilities Answer Date Recorded In the past 12 months has e electric, gas, oil, or water [employer] threatened to shut off services in your [...] have a [facility] place to live 09/09/2023 Sex and Gender [...] filedocumented in this encounter Care Teams Director Non Profit Relationship Specialty Start Date End Date Elsewhere, Pcp PCP - General Internal Medicine 08/13/23 documented as of this encounter
--- OUTSIDE RECORDS SUMMARY | 2023-10-21 08:14 | XMS_ITS | Encounter Summary ---
Author Organization [facility] Address [address] [place] [address] Care Team Providers Care Customer Care Consultant Name Role Phone Elsewhere, Pcp Primary Care Provider Unavailabl e Reason for Visit * Reason Comments Urinary Problem Rapid Heart Rate Encounter Details Date Type Department Care Team (Latest Contact Info) Description 08/30/2023 7:35 PM CDT - 09/05/2023 4:09 PM CDT Hospital Encounter [facility], [facility], [facility], First Floor [address] [place] [address] Kirstin Hughes M.D. [address] [place] [phone] Mayur Alvarez M.D. [address] [place] [phone] Hematuria (Primary Dx); Tachycardia; Hematuria Gross Discharge Disposition: Home-Health Care Svc Social History Tobacco Use Types Packs/Day Years Used Date Smoking Tobacco: Never Smokeless Tobacco: Never [facility] Utilities Answer Date Recorded In the [...] your living situation today? [facility] 09/05/2023 Sex and [...] PM CDT DISCHARGE SUMMARY BRIEF OVERVIEW [facility]charge Provider: Mayur Alvarez M.D. Primary Team: [facility] Urology Surgery - Chief Helga [...] CYSTOGRAM Mayur Alvarez M.D.White, Lindsay A, M.D. [facility] ROMB OR DISCHARGE DISPOSITION Home-Health Care [facility] [6] ACTIVE ISSUES [...] CONSULT TO CARE MANAGEMENT IP CONSULT TO FAN INSTALLER WOUND CARE IP CONSULT TO HYPERBARIC MEDICINE CONDITION AT DISCHARGE improved Discharge instructions were provided to the patient and caregiver(s). documented in this encounter Discharge Instructions * Patient Instructions* Caremn Louis, R.N. - 08/31/2023 9:44 AM CDT The Senior LinkAge Line?? is a service of the [place] Board on Aging in partnership with [facility] Agencies on Aging. It is a free service of the [facility] that connects older [place]ians and their families with the help they need. Call the Senior LinkAge Line?? at: [phone] M-F, 8am-4:30pm to connect with specialists that are available to assist you with your specific needsor check out their website at [email or web address]://[email or web address] * Attachments The following attachments cannot be sent through Care Everywhere. * Cefdinir (By mouth) (Finnish) documented in this encounter Medications at Time [...] questions or concerns. Pager during business hours: [phone] Pager after hours: [phone] * Jeffery Valdez M.D. - 09/04/2023 10:34 [...] questions or concerns. Pager during business hours: [phone] Pager after hours: [phone] * Jeffery Valdez M.D. - 09/03/2023 4:10 [...] consider [facility]: Diet: Regular Activity: Ad [...] questions or concerns. Pager during business hours: [phone] Pager after hours: [phone] * Paula Hernandez M.D. - 09/02/2023 6:25 [...] questions or concerns. Pager during business hours: [phone] Pager after hours: [phone] * Michelle Willams R.N., C.W.C.N. - 09/01/2023 11:43 AM CDT [facility] Wound RN consulted [...] Secondary Dressing Status Clean;Dry;Intact Changed by Wound alarm security or surveillance monitor Ongoing management Nursing;Wound/moth proofer Urine Assessment Urine Color Colorless Hematuria Scale Wolfe Urine Appearance Clear;Sediment Head to toe skin [...] update the patient. Son stated that a Shaker Operator visited the home and will be trying to assist both and patient with cares/coordination. OBJECTIVE Patient is located on [facility] room 111. Referrals were sent to the following agencies: Home Medical Care - Admitted Since 08/30/2023 Service Provider Request Status Selected Services Address Phone Fax Patient [facility] [place] Pending - Request Sent N/A [address] [facility] [phone] -- [facility] Pending - Request Sent N/A [address] [facility] [address], [facility] [address] -- Home Health Care Pending - Request Sent N/A [address] [facility] [address] [address] -- [facility] Pending - Request Sent N/A [address] [facility] [phone] -- [facility] Pending - Request Sent N/A [address] [facility] [phone] -- [facility] Pending - Request Sent N/A [address] [facility] [address] [phone] -- [facility] Home Health Declined Facility Full N/A [address] [facility] [phone] -- ASSESSMENT / PLAN ASSESSMENT Broadband Installer attempted to contact patient on room phone but was unable to get through. Case Manageras able to reach his son who will update that patient that the preferred home health agency was unable to accept and that referrals would be sent to other home health agencies. Requested services arenursing for wound care and catheter and PT/OT. PLAN Broadband Installer will follow up with referrals. Case Manger [...] questions or concerns. Pager during business hours: [phone] Pager after hours: [phone] * Paula Hernandez M.D. - 08/31/2023 10:45 [...] risks associated with surgery and anesthesia including [place], stroke, and VTE were also discussed. Finally, [...] questions or concerns. Pager during business hours: [phone] Pager after hours: [phone] Associated attestation - Mayur Alvarez M.D. - 08/31/2023 12:14 PM CDT I agree with the Urology Chief Service plan for palliative cystoscopy under anesthesia, clot evacuation, proceed as indicated. We will plan for judicious irrigation given his recent bladder surgery and we will perform a cystogram at the end of the procedure. * Demarco Salazar, PharmJonahD., R.Ph., [facility] - 08/31/2023 7:19 AM CDT [...] discontinuation of antibiotics. Pedrito Salazar Pharm.D., R.Ph., [facility] Admission Medication History Note Adherence [...] Complete Set By: Demarco Salazar Pharm.D., R.Ph., [facility] at 08/31/2023 7:22 AM Taking? [...] an 83 y.o. male transferred to the [facility] ED for further management of gross [...] for CBI. He was then transferred to [facility] on 08/12; a CT cystogram was [...] was initiated on CBI and transferred to [facility] for further management. On my initial [...] for radiation proctitis SOCIAL HISTORY Lives in [place], [place] OBJECTIVE Vitals Blood pressure 134/84, pulse [...] & Screen Expiration 09/02/2023 23:59 Testing Location [facility]08/30/23 EXAM: US URINARY BLADDER COMPARISON: CT [...] hematuria, clot obstruction and was transferred to [facility] for further evaluation and management. Urinary bladder ultrasound showing 5 cm clot burden; catheter draining on fast-rate CBI after multiple rounds of hand irrigation. Plan - Continue CBI - Q2h hr hand irrigations - NPO overnight pending am re-evaluation - Hold Plavix, Xarelto for now The above was discussed with Drs. Venegas and Lefty, the chief urology residents specifications checker. Please page chief Urology [place] [phone] [place] [phone] afterhours. documented in this encounter Procedure Notes [...] on androgen deprivation therapy. 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 No scuba diving experience. Electronic health [...] prolonged inpatient stay, would request transfer to [facility] prior to initiation of hyperbaric oxygen [...] Early Screen for Discharge Planning Referral Name: [facility] 11 Referral Reason: Discharge Planning Primary Language: Finnish Cage Supervisor Services Used: No Person(s) present during [...] Communication: Can write, Talks, Understands speaking, Understands Finnish, Reads Shopping: Needs assistance Medication Management: Independent Housekeeping: Needs assistance Meal Prep: Independent Assistive Devices: Walker - front wheeled, Eyeglasses, Hearing aid(s) Agency Name: [facility] Provided: Intermediate/PT/OT Transportation: Support from family Baseline Services/Resources Primary care clinic and provider: ELSEWHERE, PCP Additional Resources: N/A Anticipated Needs Functional Status: Housekeeping, Shopping, Transportation use (drive car, use taxi/bus), Mobility, Transfer to/from bed, chair, etc., Bathing Assistive Devices: Eyeglasses, Hearing aid(s), Walker - front wheeled Services/Resources: Home health Agency Name: [facility] Provided: Intermediate/PT/OT Anticipated Modifications to the Patient's Home: None Transportation Needs: Support from family Does the patient need discharge transport arranged?: No Anticipated Discharge Destination: Home-Health Care [facility] ASSESSMENT / PLAN Assessment: The hedis coordinator met with Kalen Vega to discuss his current hospitalization and home goingneeds. The patient was accompanied by son, Kar . The patient was a reliable historian. The role ofRN Broadband Installer was reviewed. The patient reviewed his prior level of care and support system. The patient receives support from his and children. The patient described his living environment as a home with bedroom and bathroom on same floor withstairs to enter with rails. Housekeeping, grocery shopping, meal prep, and other household responsibilities have previously been completed by patient and patient's son. hedis coordinator discussed the patient's potential needs at dismissal based on their home setting, previous needs and responsibilities, homebound status, and relevant assessments with the patient. The patient will be safe and supported to return home with [facility] or previous services noted above when [...] [facility] care. Patient stated that [employer] was supposed to be set- up at discharge after the last hospital stay but that the company never received orders to start care and that he was told by nursing that due to his PICC removal he would not need care. Broadband Installer will clarifywith home health team regarding if [...] chart and meeting with the patient, the hedis coordinator deemed the LACE+/readmission questions were appropriate. The [...] current readmission could have been prevented. The hedis coordinator will share this information with the care team. The patient reports understanding that he will dismiss from the hospital when medically stable. Thefollowing potential barriers to dismissal have been identified: Home Health Care Addendum 1230: Broadband Installer called [facility]. They received the referral but declined due to being at capacity. Plan: The patient agrees with the following plan. Patient's anticipated discharge disposition is: Home with Home Healthcare Referrals sent. Transportation upon dismissal will be provided by family--Kar . hedis coordinator recommended home health services. hedis coordinator provided information regarding the dismissal process and the Senior Linkage Line ([place] Board on Aging) handout. hedis coordinator placed or requested the following hospital-based consult orders and/or referrals: None. hedis coordinator will follow up with the patient to [...] with updates and/or transition plan to come. hedis coordinator encouraged the patient to reach out with [...] CDT Pre-op Diagnosis Hematuria Post-op Diagnosis Hematuria Grain Merchandising Manager A kennel assistant actively participated and was necessary for [...] or filling defects. 5. Placement of [address] catheter with 20 cc in [...] The resectoscope was removed and a [address] catheter was placed with 20 [...] secondary to cystostomy closure presenting today from [facility] with concerns for worsening hematuria. He was [...] Pt had a3 way jon placed at [facility], and transferred here because the clots returned. [...] RN, CPN, CCDS, CCS, CRC Clinical Documentation Tooth Cutter Clutch Query created by: ELMER Barker, RN, CPN, [...] Roxy Romero M.D. LAB BLOOD ADD-ON [facility] [address] [place] [address], [facility] [address] [place] [address] * (ABNORMAL) Basic Metabolic Panel (09/05/2023 4:52 [...] Jakob De Paz M.D. LAB BLOOD ADD-ON [address] [address], [facility] [address] [address] * (ABNORMAL) Basic Metabolic Panel (09/04/2023 8:15 PM CDT) [facility] Potassium, S 3.2(L) 3.6 - [...] CDT Jeffery Valdez M.D. LAB BLOOD ADD-ON [facility] [address] [place] [address], [facility] [address] [place] [address] * (ABNORMAL) CBC without Differential (09/04/2023 8:15 [...] City/[facility]/ZIP Co de Phone Number [facility] [address] [place] [address], [facility] 200 [place] [address] * Transfuse Red Blood Cells : (09/04/2023 3:30 PM CDT) Jeffery Valdez M.D. BLOOD TRANSFUSION OR DERABLES * Transfuse Red Blood Cells : , 1 Units (09/04/2023 3:30 PM CDT) Jeffery Valdez M.D. BLOOD TRANSFUSION OR DERABLES * Type and Screen (with Reflex Antibody ID) (09/04/2023 10:59 AM CDT) Pathologist [facility] ABORh O Pos Not applicable 09/04/2023 11:46 AM CDT STRM Antibody Screen Negative Negative 09/04/2023 11:59 AM CDT STRM Type & Screen Expiration 09/07/2023 23:59 09/04/2023 11:46 AM CDT [facility] Testing Location Marcio DEFAULT 09/04/2023 11:21 AM CDT [facility] Blood (Blood, Venous) 09/04/2023 10:59 AM CDT 09/04/2023 11:21 AM CDT Jeffery Valdez M.D. LAB BLOOD BANK TEST ORDERABLES Performing Organization Address [facility]/ZIP Co de Phone Number [facility] [address] [place] [address], [facility] [address] [place] [address] * Heparin Anti-Xa Assay (09/04/2023 7:34 AM CDT) Pathologist [facility] Heparin Anti-Xa, P 0.12 IU/mL 2023 8:14 [...] Alvarez M.D. LAB BLOOD NON A DD-ON [address] [address], [facility] [place] [address] * (ABNORMAL) CBC without Differential (09/04/2023 7:34 [...] BLOOD ADD-ON [facility] [address] [place] [address] * Heparin Anti-Xa Assay (09/04/2023 12:30 AM CDT) Heparin Anti-Xa, P 0.27 IU/mL 2023 1:21 AM CDT DT Comment: UFH therapeutic range: [...] Alvarez M.D. LAB BLOOD NON A DD-ON [facility] [address] [place] [address] * Bacterial Culture, Aerobic + Susceptibility, Urine (09/03/2023 10:50 AM CDT) Urine Culture No growth after 1 day of incubation. 09/04/2023 8:52 AM CDT [facility] Urine (Urine, Indwelling Catheter) 09/03/2023 10:50 AM CDT 09/03/2023 11:53 AM CDT Comment:Specimen Source Site : Urine Jeffery Valdez M.D. LAB MICROBIOLOGY - G ENERAL ORDERABLES Performing Organization Address [facility] Co de Phone Number [facility] [address] [place], [place] [id number] [place] [address] [facility] [address] [place] [address] * (ABNORMAL) CBC without Differential (09/03/2023 3:29 AM CDT) Hemoglobin 8.0(L) 13.2 - 16.6 g/dL 09/03/2023 [...] City/[facility]/ZIP Co de Phone Number [facility] [address] [place] [address], [facility] [address] [place] [address] * Heparin Anti-Xa Assay (09/03/2023 3:29 AM [...] Alvarez M.D. LAB BLOOD NON A DD-ON [facility] [address] [place] [address], [facility] [address] [place] [address] * Heparin Anti-Xa Assay (09/02/2023 2:57 AM [...] BLOOD NON A DD-ON Performing Organization Address [facility] Co de Phone Number [facility] [address] [place], [place] [address] [place] [address] * (ABNORMAL) CBC without Differential (09/01/2023 8:16 PM CDT) [facility] Hemoglobin 8.5(L) 13.2 - 16.6 g/dL 09/01/2023 [...] City/[facility]/ZIP Co de Phone Number [facility] [address] [place], [place] [phone] [place] [address] 200 [place] [address] * Heparin Anti-Xa Assay (09/01/2023 6:50 PM CDT) [facility] Heparin Anti-Xa, P 0.35 IU/mL 2023 7:47 [...] BLOOD NON A DD-ON Performing Organization Address [facility]/ZIP Co de Phone Number [address] DTL [facility] [address] [place] [address] * APTT (Activated Partial Thromboplastin Time) (09/01/2023 9:05 AM CDT) [facility] Activated Partial Thrombopl Time, P 28 25 - 37 sec 09/01/2023 9:35 AM CDT [facility] Blood (Blood, Venous) 09/01/2023 9:05 AM CDT 09/01/2023 9:21 AM CDT Paula Hernandez M.D. LAB BLOOD ADD-ON Performing Organization Address [facility]/ZIP Co de Phone Number [facility] 200 [place] [address] * (ABNORMAL) Basic Metabolic Panel (08/31/2023 9:36 PM CDT) [facility] Potassium, S 4.0 3.6 - [...] Paula Hernandez M.D. LAB BLOOD ADD-ON [facility] [address] [place] [address], [facility] [address] [place] [address] * (ABNORMAL) CBC without Differential (08/31/2023 9:36 [...] City/[facility]/ZIP Co de Phone Number [facility] [address] [place] [address], [facility] [address] [place] [address] * FL Fluoro Less Than 1 Hour (08/31/2023 2:12 PM CDT) Narrative 152 HOS LOS RST - 08/31/2023 2:13 PM CDT This exam does not require a radiologist review or interpretation. Please refer to the patient's medical record on this date for clinical details. Mayur Alvarez M.D. IMG FLUOROSCOPY PROCEDURES Performing Organization Address City/[facility]/ZIP Co de Phone Number 152 [...] in the bladder lumen. Paula Hernandez M.D. [facility] CT PROCEDURES * (ABNORMAL) Hemoglobin (08/31/2023 4:21 AM CDT) Hemoglobin 7.8(L) 13.2 - 16.6 g/dL 08/31/2023 4:47 AM CDT DTL Blood (Blood, Venous) 08/31/2023 4:21 AM CDT 08/31/2023 4:35 AM CDT Kimi Vieira M.D., M.S. LAB BLOO D ADD-ON [facility] [address] [place] [address], [facility] DTL [facility] [address] [place] [address] * Type and Screen (with Reflex Antibody ID) (08/30/2023 9:50 PM CDT) Pathologist [facility] ABORh O Pos Not applicable 08/30/2023 10:17 PM CDT STRM Antibody Screen Negative Negative 08/30/2023 10:31 PM CDT STRM Type & Screen Expiration 09/02/2023 23:59 08/30/2023 10:17 PM CDT STRM Testing Location [facility] DEFAULT 08/30/2023 9:58 PM CDT STRM Blood (Blood, Venous) 08/30/2023 9:50 PM CDT 08/30/2023 9:58 PM CDT Shannan Correa D.O., M.H.A. LAB BLOOD BANK TEST ORDERABLES Performing Organization Address City/[facility]/ZIP Co de Phone Number [facility] [address] [place] [address], [facility] STRM [facility] [address] [place] [address] * Lactate (08/30/2023 9:50 PM CDT) [facility] Lactate, P 1.8 0.5 - 2.2 mmol/L 08/30/2023 10:09 PM CDT [facility] Blood (Blood, Venous) 08/30/2023 9:50 PM CDT 08/30/2023 9:55 PM CDT Shannan Correa D.O., M.H.A. LAB BLOOD NON ADD-ON [facility] [address] [place] [address], [facility] [address] [place] [address] * (ABNORMAL) Basic Metabolic Panel (08/30/2023 9:49 [...] Correa D.O., M.H.A. LAB BLOOD ADD- ON [facility] [address] [place] [address], [facility] [address] [place] [address] * (ABNORMAL) CBC with Differential, Blood (08/30/2023 9:49 PM CDT) [facility] Signature Hemoglobin 8.5(L) 13.2 - 16.6 [...] Correa D.O., M.H.A. LAB BLOOD ADD- ON [facility] [address] [place], [place] [address] [address] [place] [address] [facility] [address] [place] [address] * DX Chest AP or PA and [...] MUSE QTC Interval 403 ms MUSE P [place] 44 degrees MUSE R [place] 9 degrees MUSE T Wave [place] -76 degrees MUSE 08/30/2023 7:44 PM CDT [...] give total of 40 mEq Dissolve per edger runner recommendations. Do NOT chew or swallow [...] give total of 40 mEq Dissolve per edger runner recommendations. Do NOT chew or swallow tablet., Monitor the following for replacement: Potassium, Replace Potassium per: Standard Schedule 233 (Given - Provider: Merlyn Treadwell RNarendra) rivaroxaban tablet 10 mg (XARELTO) 10 mg, oral, Daily, First dose on Tue09/04/23 at 1030 1117 (Given - Provider: Joy Jackson RNarendra) 0911 (Given - Provider: Vanessa Leo R.N.) [...] Gaye Dillard R.N. - Reason: Patient/family refused) 0813 (Given - Provider: Tayler Espinoza R.N.)2047 (Given - Provider: Sarah Quintana R.N.) 09 (Not Given - Provider: Vanessa Leo R.N. - Reason: Order parameters not met) sodium chloride 0.9 % injection 3 mL 3 mL, intravenous, Every 12 hours scheduled, First dose on Tue08/31/23 at 0900, Peripheral Intravenous Catheter and Rapid Infusion Catheter, when no infusion to maintain patency 0950 (Given - Provider: Mayur NolascoNJonah)2109 (Given - Provider: Mayur WestonNJonah) 0814 (Not Given - Provider: Tayler Espinoza [...] PRN, bladder spasms, Starting on Tue08/30/23 at 223, Administer with water at least 1 hr [...] 2256 documented in this encounter Care Teams Customer Care Consultant Relationship Specialty Start Date End Date Elsewhere, Pcp PCP - General Internal Medicine 08/13/23 documented as of this encounter
--- OUTSIDE RECORDS SUMMARY | 2023-10-21 08:14 | XMS_ITS | Encounter Summary ---
Author Organization [facility] Address [address] [place] [address] Care Team Providers Care Triage Licensed Practical Nurse Name Role Phone Elsewhere, Pcp Primary Care Provider Unavailabl e Reason for Referral * Outpatient (Routine) - Closed Specialty Diagnoses / Procedures Referred By Contac t Referred To Contact Diagnoses Hematuria Procedures URO Urethral cath change (UCC) Paula Hernandez M.D. [address] [place] [address] [facility] Referral ID Status Reason Start Date Expiration Date Visits Re quested Visits Authorized [id number] Closed 09/15/2023 09/14/2024 1 1 * Outpatient (Routine) - Authorized Specialty Diagnoses / Procedures Referred By Contac t Referred To Contact Radiology Diagnoses Hematuria Procedures IR Nephrostomy Tube Exchange Left Paula Hernandez M.D. [address] [place] [address] [facility] Referral ID Status Reason Start Date Expiration Date V isits Requested Visits Authorized [id number] Authorized 09/15/2023 09/14/2024 1 1 Reason for Visit * Reason Comments Blood in Urine Encounter Details Date Type Department Care Team (Latest Contact Info) Description 09/09/2023 7:24 AM CDT - 09/15/2023 5:28 PM CDT Hospital Encounter [facility], [facility], Sixth Floor [address] [place] [phone] Gerri Merrill M.D., Ph.D. [address] [place] [phone] Sumit Holbrook M.D. [address] [place] [phone] Hematuria (Primary Dx) Discharge Disposition: Home or Self Care Social History Tobacco Use Types Packs/Day Years Used Date Smoking Tobacco: Never Smokeless Tobacco: Never [facility] [employer] Answer Date Recorded In the past 12 months has [facility] [employer], gas, oil, or water [employer] threatened to shut off services in your [...] your living situation today? I have a [facility] place to live 09/09/2023 Sex and [...] OVERVIEW Hospital: [facility] Discharge Provider: Sumit Holbrook M.D. Primary Team: [facility] Urology Surgery - Chief Helga Rojas [...] IP CONSULT TO UROLOGY IP CONSULT TO FACULTY HEAD WOUND CARE IP CONSULT TO HYPERBARIC MEDICINE IP CONSULT TO VASCULAR MEDICINE IP CONSULT TO DIETITIAN CONDITION AT DISCHARGE stable Discharge instructions were provided to the patient and caregiver(s). documented in this encounter Discharge Instructions * Discharge Instructions* Yasmine Loco - 09/09/2023 12:27 PM CDT You were discharged from the [facility] Urology Surgery - Chief A - Blue Service. Please identify this service name if you call with questions after hospitalization. * Attachments The following attachments cannot be sent through Care Everywhere. * Sulfamethoxazole/Trimethoprim (By mouth) (Cymro) documented in this encounter Medications at Time [...] home. Social Work also sent referral to [facility] and reached out to Service [...] reviewed. GI Function: Last BM Date: 09/11/23, [place] Stool Chart: Type 5: Soft blobs with [...] 86.8 kg (09/09/2023) Current Weight: 84.5 kg Falcon Body Weight (Calculated) : 75.3 kg BMI [...] or 5%. Estimated Needs: Total Calorie Needs: 6103-3378 calories/day Method to Estimate Energy Needs: kcal/kg [...] about patient's nutritional care please contact pager [phone] on weekdays 07:30-16:00 or [phone] on weekends/holidays ([facility]). * Clara Luu APRN, C.N.P., [...] - 09/14/2359 09/14/23699 - 09/15/23 0659 Shift [id number] [phone] 24 Hour Total 5827-0460 [phone] 7240-2917 24 Hour Total INTAKE Other 30 60 [...] please contact Vascular and Interventional Radiology DEBBI ([phone]). Anticoagulation: A percutaneous nephrostomy tube is considered [...] care. Please feel free to page the [facility] Inpatient Consult Service at [phone] or the on-call resident at [phone] after 5 PM and on weekends with [...] . Neph tube clear yellow urine. I/O ([id number]): 1.9 L, 1.1 L from the neph [...] questions or concerns. Pager during business hours: [phone] Pager after hours: [phone] * Paula Hernandez M.D. - 09/13/2023 6:05 [...] in place draining clear yellow urine I/O ([id number]): Adequate urine output 2.7 L/248 1 L [...] questions or concerns. Pager during business hours: [phone] Pager after hours: [phone] * Raya Meza Pharm.D., R.Ph., [facility] - 09/12/2023 7:44 AM CDT Images [...] follow for medicationuse optimization Pharm. YanciDJonah, R.Ph., [facility] Addendum: Heparin will be stopped on [...] in place draining clear yellow urine I/O ([id number]): CBI paused for obs Labs: Hb: Hemoglobin [...] Date/Time Bacterial Culture, Aerobic + Susceptibility, Urine [[id number]] (Abnormal) (Susceptibility) Collected: 09/09/23 1128 Lab Status: [...] Susceptible Bacterial Culture, Aerobic + Susceptibility, Urine [[id number]] Collected: 09/03/23 1050 Lab Status: Final result [...] DVT - Hold Plavix and Eliquis -Bactrim [facility] Summary: Diet: regular Activity: ad kong DVT PPX: low intensity heparin drip GI PPX: none Bowel Regimen: senna, miralax IVF: none Abx/Microbiology: bactrim started 09/11 Pain Control: scheduled trospium Home Meds Resumed: enzalutamide, metoprolol, Crestor Held Home Meds: Xarelto, Plavix Consults: Vascular Medicine Paula Hernandez M.D. 09/12/2023 Please page the Urology Chief Service with questions or concerns. Pager during business hours: [phone] Pager after hours: [phone] * Js Yang M.D. - 09/11/2023 9:18 [...] Service [place] [phone] during business hours orat [phone] after hours. * Portillo Crespo Pharm.D., R.Ph., [...] Mayur Collier PharmD, LUCERO, BCPS, [facility] Pager [phone] * Js Yang M.D. - 09/10/2023 9:50 [...] and Eliquis - wean CBI as able sJ Yang M.D. 09/10/2023 9:50 AM CDT Please page chief Urology Service [place] [phone] during business hours orat [phone] after hours. * Quin Harrell Pharm.D., R.Ph., [...] R.N., C.W.C.N. - 09/09/2023 1:16 PM CDT [facility] Wound RN [...] None Unable to Measure N *Wound Bed Open;[place];Yellow;Fibrin/Slough Tissue Exposed None Odor None *Exudate Amount Small Drainage Description Serous;Perez Janiya-wound Assessment Intact;Fragile;[place];Purple;Maceration;White Periwound Treatment Liquid skin protectant (SurePrep) *Primary Dressing Gelling fiber/Hydrofiber (Aquacel Ag) *Primary Dressing Frequency of Change Daily & PRN *Secondary Dressing Foam (Sacral Mepilex Border) *Secondary Dressing Frequency of Change Daily & PRN Lengthy Treatment > 30 minutes > 30 minutes Ongoing management Nursing;Wound/sewer cleaner Partial head to toe skin assessment completed [...] PM CDT * Raya Meza Pharm.D., R.Ph., [facility] - 09/09/2023 11:17 AM CDT Images from [...] for medicationuse optimization Stephanie Meza Pharm.D., R.Ph., [facility] Admission Medication History Note Adherence issues: No concerns Medication list source: Patient, son, recent filling Hx Medication related information: Per pt, he takes amlodipine, mirabegron daily in the afternoon, around 1 to 2 pm-tucker, for no specific reasons Prior to Admission Medications Med List Status: Pharmacy Complete Set By: Raya Meza, Pharm.D., R.Ph., [facility] at 09/09/2023 11:16 AM Taking? Last [...] follow Paula Hernandez M.D. Urology PGY-2 Pager #[phone] Please page Chief Urology at [phone] from 7 AM - 5 PM or at [phone] after hours with any questions/concerns. documented in [...] reviewed. GI Function: Last BM Date: 09/11/23, [place] Stool Chart: Type 5: Soft blobs with [...] 86.8 kg (09/09/2023) Current Weight: 84.5 kg Falcon Body Weight (Calculated) : 75.3 kg BMI [...] or 5%. Estimated Needs: Total Calorie Needs: 6885-4920 calories/day Method to Estimate Energy Needs: kcal/kg [...] about patient's nutritional care please contact pager [phone] on weekdays 07:30-16:00 or [phone] on weekends/holidays ([facility]). * Clara Luu, DITCHING MACHINE ENGINEER, C.N.P., D.N.P. - 09/12/2023 11:59 AM CDTAssociated [...] admitted for CBI. He was transferred to [facility] after difficultywith irrigating his Jon [...] ABDOMEN INCISIONAL; Surgeon: Boubacar Brock M.D.; Location: [facility] ROMB OR CYSTOSCOPY CYSTOGRAM VOIDING N/A [...] and recommendations. Please feel free to page [phone] [phone] after 5 PM and on weekends with additional questions. VIR will continue to follow * Alessandra Aguero D.O. - 09/09/2023 5:26 PM CDTAssociated Order(s): IP CONSULT TO VASCULAR MEDICINE VASCULAR MEDICINE CONSULT NOTE Requesting Physician: Gerri Merrill M.D.,* SUBJECTIVE REASON FOR CONSULT: assistance with AC management, patient on plavix and eliquis admitted with refractory hematuria requing CBI. Recommend heparin drip? thanks [facility] [phone] HISTORY OF PRESENT ILLNESS Mr. Vega is [...] stents placed in total (2016, no prior DC, completed after positive stress test) Recommended for [...] for radiation proctitis SOCIAL HISTORY Lives in [place], [place] OBJECTIVE AVSS General: Lying in bed, [...] with Dr. Victoria, the chief urology resident camera person. Please page chief Urology Service [place] [phone] [place] [phone] after hours. Paula Hernandez M.D. 09/09/23 9:10 [...] End of Shift Summary: Pt DC'd to [facility] with family. Patient educated on [...] Urology consulted after discussion with the catheter studio technician video operator who advised that for this patient they are required to get approval from Urologyprior to placing catheter. ED Course as of 09/09/23 0958 TueSeptember 09, 2023 0822 Hemoglobin(!): 8.9 Down from 9.6 one-week ago 0822 Leukocytes(!): 14.5 New leukocytosis with neutrophilia 0822 INR: 1.1 0823 Discussed with the catheter studio technician video operator. Bladder scan showed 125 mL. There is [...] AM CDT 09/15/2023 4:08 AM CDT Paula Heranndez M.D. LAB BLOOD ADD-ON [facility] [address] [place] [address], [facility] [address] [place] [address] * Heparin Anti-Xa Assay (09/14/2023 3:19 AM CDT) Pathologist [facility] Heparin Anti-Xa, P 0.11 IU/mL 2023 4:07 [...] Sumit Holbrook M.D. LAB BLOOD NON ADD-ON [facility] [address] [place] [address], [facility] [place] [address] [place] [address] * (ABNORMAL) CBC without Differential (09/14/2023 3:19 AM CDT) [facility] Hemoglobin 10.1(L) 13.2 - 16.6 g/dL [...] CDT Paula Hernandez M.D. LAB BLOOD ADD-ON [facility] [address] [place] [address], [place] DTL [facility] [address] [place] [address] * IR Nephrostomy Tube Placement Left (09/13/2023 2:20 PM CDT) Anatomical Region Laterality Modality Genito Urinary, Vascular Int erventional RST LOS, Vascular Interventional ARZ LOS, Vascular Interventional FLA LOS Left X-Ray Angiography Impressions 09/13/2023 2:33 PM CDT Left 10 Azerbaijani percutaneous nephrostomy tube placement. EP Narrative 09/13/2023 [...] tract was further dilated and a 10 Azerbaijani nephrostomy tube was placed with loop formed [...] sedation timewas: 9 minutes. IMPRESSION: Left 10 Azerbaijani percutaneous nephrostomy tube placement. EP Latisha Whitehead M.D. IMG IR PROCEDURE S * Fungal Culture, Routine (09/13/2023 2:17 PM CDT) Fungal Culture, Routine No growth after 24 days of incubation. 10/08/2023 1:02 AM CDT DTL Fluid (Kidney, Left) 09/13/2023 2:17 PM CDT 09/13/2023 3:56 PM CDT Comment:Specimen Source Site : Fluid Latisha Whitehead M.D. LAB MICROBIOLOGY - GENERAL ORDERABLES Performing Organization Address City/[facility]/ZIP Co de Phone Number [facility] [address] [place] [address], [facility] [address] [place] [address] * Bacterial Culture, Anaerobic + Susceptibility (09/13/2023 2:17 PM CDT) Bacterial Culture, Anaerobic + Susc No growth after 14 days of incubation. 09/27/2023 8:04 AM CDT DTL Fluid (Kidney, Left) 09/13/2023 2:17 PM CDT 09/13/2023 3:56 PM CDT Comment:Specimen Source Site : Fluid Latisha Whitehead M.D. LAB MICROBIOLOGY - GENERAL ORDERABLES Performing Organization Address City/[facility]/ZIP Co de Phone Number [facility] [address] [place] [address], [facility] [address] [place] [address] * Gram Stain (09/13/2023 2:17 PM CDT) Gram Stain No organisms seen. White blood cells, Rare 09/13/2023 9:02 PM CDT DTL Fluid (Kidney, Left) 09/13/2023 2:17 PM CDT 09/13/2023 3:56 PM CDT Comment:Specimen Source Site : Fluid Latisha Whitehead M.D. LAB MICROBIOLOGY - GENERAL ORDERABLES Performing Organization Address [facility] [place] [place] [address] * Bacterial Culture, Aerobic + Susceptibility (09/13/2023 2:17 PM CDT) [facility] Bacterial Culture, Aerobic + Susc No growth after 5 days of incubation. 09/18/2023 12:35 PM CDT DTL Fluid (Kidney, Left) 09/13/2023 2:17 PM CDT 09/13/2023 3:56 PM CDT Comment:Specimen Source Site : Fluid Latisha Whitehead M.D. LAB MICROBIOLOGY - GENERAL ORDERABLES Performing Organization Address [facility] [place] [address] * (ABNORMAL) CBC without Differential (09/13/2023 5:57 AM CDT) [facility] Hemoglobin 9.3(L) 13.2 - 16.6 g/dL [...] CDT Ko Victoria M.D. LAB BLOOD ADD-ON [facility] [address] [place] [address] * Heparin Anti-Xa Assay (09/13/2023 5:56 AM CDT) Heparin Anti-Xa, P 0.10 IU/mL 2023 7:14 AM CDT DT Comment: UFH therapeutic range: [...] Sumit Holbrook M.D. LAB BLOOD NON ADD-ON [facility] [address] [place] [address] * APTT (Activated Partial Thromboplastin Time) (09/13/2023 5:56 AM CDT) Activated Partial Thrombopl Time, P 35 25 - 37 sec 09/13/2023 7:14 AM CDT DTL Blood (Blood, Venous) 09/13/2023 5:56 AM CDT 09/13/2023 6:53 AM CDT Sumit Holbrook M.D. LAB BLOOD ADD-ON [facility] [address] [place] [address], [facility] DTL [facility] [address] [place] [address] * (ABNORMAL) Basic Metabolic Panel (09/13/2023 5:56 AM CDT) Potassium, S 3.7 3.6 - [...] BLOOD ADD-ON [facility] [address] [place] [address], [place] DTL [facility] [address] [place] [address] * NM Kidney DMSA (09/12/2023 12:21 PM [...] CBC without Differential (09/12/2023 3:42 AM CDT) [facility] Hemoglobin 7.2(L) 13.2 - 16.6 g/dL [...] M.D. LAB BLOOD ADD-ON Performing Organization Address [facility] [place] [address] * (ABNORMAL) APTT (Activated Partial Thromboplastin Time) (09/12/2023 3:42 AM CDT) [facility] Activated Partial Thrombopl Time, P 49(H) 25 - 37 sec 09/12/2023 4:35 AM CDT DTL Blood (Blood, Venous) 09/12/2023 3:42 AM CDT 09/12/2023 4:00 AM CDT Gerri Merrill M.D., Ph.D. LAB BLOOD A DD-ON Performing Organization Address [facility] [place] [address] * (ABNORMAL) Basic Metabolic Panel (09/11/2023 8:23 AM CDT) [facility] Potassium, S 3.5(L) 3.6 - 5.2 [...] CDT Js Yang M.D. LAB BLOOD ADD-ON [facility] [address] [place] [address], [facility] [address] [place] [address] * (ABNORMAL) CBC without Differential (09/11/2023 8:23 [...] M.D. LAB BLOOD ADD-ON Performing Organization Address [facility] Co de Phone Number [facility] [address] [place] [address] * (ABNORMAL) APTT (Activated Partial Thromboplastin Time) (09/10/2023 11:42 PM CDT) Activated Partial Thrombopl Time, P 47(H) 25 - 37 sec 09/11/2023 2:05 AM CDT DTL Blood (Blood, Venous) 09/10/2023 11:42 PM CDT 09/11/2023 2:05 AM CDT Gerri Merrill M.D., Ph.D. LAB BLOOD A DD-ON Performing Organization Address [facility] Co de Phone Number [address] [address] * US Urinary Bladder (09/10/2023 8:41 PM [...] Thromboplastin Time) (09/10/2023 6:09 PM CDT) Pathologist [facility] Activated Partial Thrombopl Time, P 46(H) 25 - 37 sec 09/10/2023 7:47 PM CDT DTL Blood (Blood, Venous) 09/10/2023 6:09 PM CDT 09/10/2023 6:25 PM CDT Gerri Merrill M.D., Ph.D. LAB BLOOD A DD-ON Performing Organization Address [facility]/ZIP Co de Phone Number [facility] [address] [facility] [address] [place] [address] * (ABNORMAL) APTT (Activated Partial Thromboplastin Time) (09/10/2023 10:11 AM CDT) [facility] Activated Partial Thrombopl Time, P 63(H) 25 - 37 sec 09/10/2023 10:57 AM CDT DTL Blood (Blood, Venous) 09/10/2023 10:11 AM CDT 09/10/2023 10:40 AM CDT Gerri Merrill M.D., Ph.D. LAB BLOOD A DD-ON Performing Organization Address City/[facility]/ZIP Co de Phone Number [facility] [address] [place] [address], [facility] [place] [address] * (ABNORMAL) CBC without Differential (09/10/2023 3:27 AM CDT) Pathologist [facility] Hemoglobin 8.1(L) 13.2 - 16.6 g/dL 09/10/2023 [...] LAB BLOOD ADD-ON Performing Organization Address City/[facility]/ZIP Co de Phone Number [facility] [address] [facility] [address] [place] [address] * (ABNORMAL) APTT (Activated Partial Thromboplastin Time) (09/10/2023 12:06 AM CDT) [facility] Activated Partial Thrombopl Time, P 57(H) 25 - 37 sec 09/10/2023 1:05 AM CDT DTL Blood (Blood, Venous) 09/10/2023 12:06 AM CDT 09/10/2023 12:33 AM CDT Gerri Merrill M.D., Ph.D. LAB BLOOD A DD-ON Performing Organization Address [facility] Co de Phone Number [facility] [address] [facility] [address] [place] [address] * APTT (Activated Partial Thromboplastin Time) (09/09/2023 5:08 PM CDT) Pathologist [facility] Activated Partial Thrombopl Time, P 31 25 - 37 sec 09/09/2023 5:24 PM CDT STMA Blood (Blood, Venous) 09/09/2023 5:08 PM CDT 09/09/2023 5:12 PM CDT Ko Victoria M.D. LAB BLOOD ADD-ON Performing Organization Address City/[facility]/ZIP Co de Phone Number [facility] [address] [place] [address], [facility] STMA [facility] [address] [place] [address] * (ABNORMAL) Dipstick, Urine (09/09/2023 11:28 AM CDT) Pathologist [facility] Hemoglobin, QL, U Large(A) Negative 09/09/2023 12:03 [...] LAB URINE ORDERA BLES Performing Organization Address City/[facility] Co de Phone Number [facility] [address] [place] [address], [facility] DTL [facility] [address] [place] [address] * pH, Random, Urine (09/09/2023 11:28 AM CDT) Pathologist [facility] pH, Random, U 6.3 4.5 - 8.0 09/09/2023 12:19 PM CDT DTL Urine 09/09/2023 11:2 8 AM CDT 09/09/2023 11:58 AM CDT Jeffery Church M.D. LAB URINE ORDERA BLES Performing Organization Address [facility] Co de Phone Number [facility] [address] [place], [place] [phone] [place] [address] 200 [place] [address] * Osmolality, Urine (09/09/2023 11:28 AM CDT) Osmolality, U 380 150 - 1150 mOsm/kg 09/09/2023 12:19 PM CDT DTL Urine 09/09/2023 11:2 8 AM CDT 09/09/2023 11:58 AM CDT Jeffery Church M.D. LAB URINE ORDERA BLES Performing Organization Address [facility] de Phone Number [facility] [address] [place], [place] [phone] [place] [address] 200 [place] [address] * (ABNORMAL) Microscopic Manual (09/09/2023 11:28 AM [...] LAB URINE ORDERA BLES Performing Organization Address [facility] Co de Phone Number [facility] [address] [place] [address], [facility] [address] [place] [address] * (ABNORMAL) Gram Stain, Urine (09/09/2023 11:28 AM CDT) Source Urine, Urine, Straight Catheter 09/09/2023 11:58 AM CDT DTL Gram Stain, U Positive(A) Negative 09/09/2023 12:16 PM CDT DTL Comment: Few Gram-negative bacilli ? Yeast Urine 09/09/2023 11:2 8 AM CDT 09/09/2023 11:58 AM CDT Jeffery Church M.D. LAB URINE STEFFANY BRAVO Performing Organization Address [facility] Co de Phone Number [facility] [address] [place] [address], [facility] [address] [place] [address] * (ABNORMAL) Bacterial Culture, Aerobic + Susceptibility, [...] Church M.D. LAB MICROBIOLOGY - GENERAL ORDERABLES [facility] [address] [place] [address], [facility] DTL [facility] [address] [place] [address] * (ABNORMAL) Urinalysis, with Microscopic: Urine, Straight [...] 09/09/2023 1:02 PM CDT DTL Predicted Range 2480-52837 mg/24 h 09/09/2023 1:02 PM CDT DTL Comment Micro done on <2.5 mL 09/09/2023 12:27 PM CDT DTL Urine (Urine, Straight Catheter) 09/09/2023 11:28 AM CDT 09/09/2023 11:58 AM CDT Jeffery Church M.D. LAB URINE ORDERA BLES [facility] [address] [place] [address], [facility] [address] [place] [address] * US Kidneys Bilateral with Bladder (09/09/2023 [...] - 12.5 sec 09/09/2023 8:14 AM CDT [facility] INR 1.1 0.9 - 1.1 09/09/2023 8:14 AM CDT [facility] Comment: ----ADDITIONAL INFORMATION---- Standard intensity warfarin therapeutic range: 2.0 to 3.0 ?? High intensity warfarin therapeutic range: 2.5 to 3.5 Blood (Blood, Venous) 09/09/2023 8:04 AM CDT 09/09/2023 8:08 AM CDT Jeffery Church M.D. LAB BLOOD ADD-ON [facility] [address] [place], [place] [address] [address] * (ABNORMAL) CBC with Differential, Blood (09/09/2023 [...] CDT Jeffery Church M.D. LAB BLOOD ADD-ON [facility] [address] [place] [address], [facility] [address] [place] [address] [facility] [address] [place] [address] * (ABNORMAL) Basic Metabolic Panel (09/09/2023 8:04 [...] CDT Jeffery Church M.D. LAB BLOOD ADD-ON [facility] [address] [place] [address], [facility] STMA [facility] [address] [place] [address] * Type and Screen (with Reflex Antibody [...] M.D. LAB BLOOD BANK T EST ORDERABLES [address] [address], [address] [address] documented in this encounter Visit Diagnoses Diagnosis [...] Whitney R.N.) 2101 (Given - Provider: Brittanie A Joshua, R.N.) sennosides-docusate sodium 8.6-50 mg per tablet [...] patients 65 years of age or older 0534 (Given - Provider: Lilia Whitney R.N.)1659 (Given [...] Repeat anti-Xa: 6 hours after Heparin resumed 9754 (New Bag - Provider: Lilia Whitney R.N. [...] documented as of this encounter Care Teams Triage Licensed Practical Nurse Relationship Specialty Start Date End Date Elsewhere, Pcp PCP - General Internal Medicine 08/13/23 documented as of this encounter
--- OUTSIDE RECORDS SUMMARY | 2023-10-21 08:15 | XMS_ITS | Encounter Summary ---
Author Organization [facility] Address [address] [place] [address] Care Team Providers Care Sea Captain Name Role Phone Elsewhere, Pcp Primary [...] has e electric, gas, oil, or water [employer] threatened to shut off services in your [...] your living situation today? I have a [facility] place to live 08/13/2023 Sex [...] on filedocumented in this encounter Care Teams Sea Captain Relationship Specialty Start Date End Date Elsewhere, Pcp PCP - General Internal Medicine 08/13/23 documented as of this encounter
--- OUTSIDE RECORDS SUMMARY | 2023-10-21 08:15 | XMS_ITS | Encounter Summary ---
Author Organization [facility] Address [address] [place] [address] Care Team Providers Care Cuffing Machine Operator Name Role Phone Elsewhere, Pcp Primary Care Provider Unavailabl e Encounter Details Date Type Department Care Team (Late st Contact Info) Description 08/31/2023 12:34 PM CDT Anesthesia Event RST ROMB MAIN OR [address] [place] [address] [phone] Joe Stoll M.D. [address] [place] [address] [phone] Benjamin Williamson APRN, ELECTRICIAN SUBSTATION SUPERVISOR [address] [place] [phone] Anesthesia Record Procedure Summary Procedure Name Responsible [...] 1402 08/31/23 1243 by Benjamin Williamson APRN, ELECTRICIAN SUBSTATION SUPERVISOR 08/31/23 1402 by Benjamin Williamson APRN, ELECTRICIAN SUBSTATION SUPERVISOR Indwelling Urinary Catheter Placement Date: 08/31/23; Placement Time: 1359; Inserted by: Siddhartha Venegas MD; Size: 24 Fr.; Balloon Size: (20 ml fill saline); Removal Date: 08/31/23; Removal Time: 1403 08/31/23 1359 by Jacqui Mheta R.N. 08/31/23 1403 by Jacqui Mehta RJonahN. [...] 12 months has [facility] [place], [employer], or water [employer] threatened to shut off services in your [...] Procedure Summary Date: 08/31/23 Room / Location: [address] [address] 01 530 / [facility] in [place], [place] Anesthesia Start: 1234 Anesthesia Stop: 1420 [...] Location: OR 108 [address] 01 530 / [facility] in [place], [place] Providers: Mayur Alvarez M.D. Pertinent components [...] patient / legal guardian, or through an construction supervisor/carpenter; patient evaluated and approved for anesthesia / [...] 12:43 PM Performed by: Benjamin Williamson APRN, ELECTRICIAN SUBSTATION SUPERVISOR Authorized by: Joe Stoll M.D. ?? Patient [...] mg documented in this encounter Care Teams Cuffing Machine Operator Relationship Specialty Start Date End Date Elsewhere, Pcp PCP - General Internal Medicine 08/13/23 documented as of this encounter
--- OUTSIDE RECORDS SUMMARY | 2023-10-21 08:15 | XMS_ITS | Encounter Summary ---
Author Organization [facility] Address [address] [place] [address] Care Team Providers Care School Psychologist Assistant Name Role Phone Elsewhere, Pcp Primary Care Provider Unavailabl e Encounter Details Date Type Department Care Team (Late st Contact Info) Description 08/30/2023 Documentation Department of Urology in [place], [place] [address] [place] [address] Corin Ring M.D. [address] [place] [address] Social History Tobacco Use Types Packs/Day Years Used Date Smoking Tobacco: Never Smokeless Tobacco: Never [facility] Utilities Answer Date Recorded In the past 12 months has [facility], gas, oil, or water [employer] threatened to shut off services in your [...] on filedocumented in this encounter Care Teams School Psychologist Assistant Relationship Specialty Start Date End Date Elsewhere, Pcp PCP - General Internal Medicine 08/13/23 documented as of this encounter
--- OUTSIDE RECORDS SUMMARY | 2023-10-21 08:15 | XMS_ITS | Encounter Summary ---
Author Organization [facility] Address [address] [place] [address] Care Team Providers Care Carbon Furnace Operator Helper Name Role Phone Elsewhere, Pcp Primary Care Provider Unavailabl e Reason for Visit * Reason Comments Urinary Problem Rapid Heart Rate Encounter Details Date Type Department Care Team (Late st Contact Info) Description 08/31/2023 12:36 PM CDT - 08/31/2023 2:31 PM CDT Surgery RST ROMB MAIN OR [address] [place] [address] Mayur Alvarez M.D. [address] [place] [address] CYSTOSCOPY EVACUATION CLOTS Social History Tobacco Use Types Packs/Day Years Used Date Smoking Tobacco: Never Smokeless Tobacco: Never [facility] Utilities Answer Date Recorded In the [...] living situation today? I have a [facility] place to live 08/13/2023 Sex and [...] PM CDT DISCHARGE SUMMARY BRIEF OVERVIEW Hospital: [facility] Discharge Provider: Mayur Alvarez M.D. Primary [...] CYSTOGRAM Mayur Alvarez M.D.White, [place] A, M.D. [facility] ROMB OR DISCHARGE DISPOSITION Home-Health Care [facility] [6] ACTIVE ISSUES REQUIRING FOLLOW UP OUTPATIENT [...] CONSULT TO CARE MANAGEMENT IP CONSULT TO OPTICAL INSTRUMENT ASSEMBLER WOUND CARE IP CONSULT TO HYPERBARIC MEDICINE CONDITION AT DISCHARGE improved Discharge instructions were provided to the patient and caregiver(s). documented in this encounter Discharge Instructions * Patient Instructions* Carmen Louis, R.N. - 08/31/2023 9:44 AM CDT The Senior LinkAge Line?? is a service of the [place] Board on Aging in partnership with [place]'s Area Agencies on Aging. It is a free service of the [facility] that connects older [place] and their families with the help they need. Call the Senior LinkAge Line?? at: [phone] M-F, 8am-4:30pm to connect with specialists that are available to assist you with your specific needsor check out their website at [email or web address] * Attachments The following attachments cannot be sent through Care Everywhere. * Cefdinir (By mouth) (Taiwanese) documented in this encounter Medications at Time [...] questions or concerns. Pager during business hours: [phone] Pager after hours: [phone] * Jeffery Valdez M.D. - 09/04/2023 10:34 [...] questions or concerns. Pager during business hours: [phone] Pager after hours: [phone] * Jeffery Valdez M.D. - 09/03/2023 4:10 [...] [facility]: Diet: Regular Activity: Ad kong DVT PPX: Holding GI PPX: None Bowel Regimen: Senna, MiraLax IVF: LR 50 Abx/Microbiology: Ucx pending Pain Control: Tylenol, 2.5/5 oxycodone Home Meds Resumed: Enzalutamide, metoprolol, mirabegron, rosuvastatin, trospium Held Home Meds: Plavix, Xarelto Consults: None Jeffery Valdez M.D. 09/03/2023 10:45 AM CDT Please page the Urology Chief Service with questions or concerns. Pager during business hours: [phone] Pager after hours: [phone] * Paula Hernandez M.D. - 09/02/2023 6:25 [...] questions or concerns. Pager during business hours: [phone] Pager after hours: [phone] * Michelle Willams, Terri., C.W.C.N. - 09/01/2023 11:43 AM CDT [facility] Wound RN consulted to assess [...] Secondary Dressing Status Clean;Dry;Intact Changed by Wound tea and spice supervisor Ongoing management Nursing;Wound/pumping supervisor Urine Assessment Urine Color Colorless Hematuria Scale Canyon Urine Appearance Clear;Sediment Head to toe skin [...] update the patient. Son stated that a Driller Portable visited the home and will be trying to assist both and patient with cares/coordination. OBJECTIVE Patient is located on [facility] room 111. Referrals were sent to the following agencies: Home Medical Care - Admitted Since 08/30/2023 Service Provider Request Status Selected Services Address Phone Fax Patient Preferred [facility] [place] Pending - Request Sent N/A [address], [facility] [phone] -- [facility] - Home Care Pending - Request Sent N/A [address], [facility] [address] [phone] -- Home Health Care Pending - Request Sent N/A [address], [facility] [address] -- [facility] Pending - Request Sent N/A [address] [facility] [phone] -- [facility] Pending - Request Sent N/A [address] [facility] [phone] -- [facility] Pending - Request Sent N/A [address] [facility] [address], [facility] [phone] -- [facility] Home Health Declined Facility Full N/A [address] [facility] [phone] -- ASSESSMENT / PLAN ASSESSMENT Sales Communications Manager attempted to contact patient on room phone but was unable to get through. Case Manageras able to reach his son who will update that patient that the preferred home health agency was unable to accept and that referrals would be sent to other home health agencies. Requested services arenursing for wound care and catheter and PT/OT. PLAN Sales Communications Manager will follow up with referrals. Case Manger [...] questions or concerns. Pager during business hours: [phone] Pager after hours: [phone] * Paula Hernandez M.D. - 08/31/2023 10:45 [...] risks associated with surgery and anesthesia including [place], stroke, and VTE were also discussed. Finally, [...] questions or concerns. Pager during business hours: [phone] Pager after hours: [phone] Associated attestation - Mayur Alvarez M.D. - 08/31/2023 12:14 PM CDT I agree with the Urology Chief Service plan for palliative cystoscopy under anesthesia, clot evacuation, proceed as indicated. We will plan for judicious irrigation given his recent bladder surgery and we will perform a cystogram at the end of the procedure. * Demarco Salazar PharmJonahD., R.Ph., [facility] - 08/31/2023 7:19 AM CDT [...] discontinuation of antibiotics. Pedrito Salazar Pharm.D., R.Ph., [facility] Admission Medication History Note Adherence [...] Complete Set By: Demarco Salazar, Karyn, R.Ph., [facility] at 08/31/2023 7:22 AM Taking? [...] an 83 y.o. male transferred to the [facility] ED for further management of gross [...] for CBI. He was then transferred to [facility] on 08/12; a CT cystogram was [...] was initiated on CBI and transferred to [facility] for further management. On my initial [...] for radiation proctitis SOCIAL HISTORY Lives in [place], [place] OBJECTIVE Vitals Blood pressure 134/84, pulse [...] & Screen Expiration 09/02/2023 23:59 Testing Location [facility] Imagin08/30/23 EXAM: US URINARY BLADDER COMPARISON: CT [...] hematuria, clot obstruction and was transferred to [facility] for further evaluation and management. Urinary bladder ultrasound showing 5 cm clot burden; catheter draining on fast-rate CBI after multiple rounds of hand irrigation. Plan - Continue CBI - Q2h hr hand irrigations - NPO overnight pending am re-evaluation - Hold Plavix, Xarelto for now The above was discussed with Drs. Venegas and Lefty, the chief urology residents interventional radiology technologist. Please page chief Urology [place] [phone] [place] [phone] afterhours. documented in this encounter Procedure Notes [...] androgen deprivation therapy. 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 [...] 11 Referral Reason: Discharge Planning Primary Language: Taiwanese Collections Professional Services Used: No Person(s) present during interview: Person(s) Present During Interview: patient and child Kar History of Present Illness #1 Hematuria Social History Support System: spouse, children, and home care staff Primary Caregiver: self and family Finance/Insurance Primary insurance: MEDICARE A AND B Secondary insurance: [employer] benefits: No Advance Directives Legal Decision Maker: Self Advance Directives: N/A Advance Directives Status: N/A OBJECTIVE Baseline Functional Status Baseline Activities of Daily Living Mobility: Requires aide of device Dressing: Independent Feeding: Independent Bathing: Independent Grooming: Independent Toileting: Independent Behavior: Appropriate, Pleasant, Calm, Cooperative, Oriented Communication: Can write, Talks, Understands speaking, Understands Taiwanese, Reads Shopping: Needs assistance Medication Management: Independent Housekeeping: Needs assistance Meal Prep: Independent Assistive Devices: Walker - front wheeled, Eyeglasses, Hearing aid(s) Agency Name: [facility] Provided: Snf/PT/OT Transportation: Support from family Baseline Services/Resources Primary care clinic and provider: ELSEWHERE, PCP Additional Resources: N/A Anticipated Needs Functional Status: Housekeeping, Shopping, Transportation use (drive car, use taxi/bus), Mobility, Transfer to/from bed, chair, etc., Bathing Assistive Devices: Eyeglasses, Hearing aid(s), Walker - front wheeled Services/Resources: Home health Agency Name: [facility] Provided: Snf/PT/OT Anticipated Modifications to the Patient's Home: None Transportation Needs: Support from family Does the patient need discharge transport arranged?: No Anticipated Discharge Destination: Home-Health Care [facility] ASSESSMENT / PLAN Assessment: The nursing education consultant met with Kalen Vega to discuss his current hospitalization and home goingneeds. The patient was accompanied by son, Kar . The patient was a reliable historian. The role ofRN Sales Communications Manager was reviewed. The patient reviewed his prior level of care and support system. The patient receives support from his and children. The patient described his living environment as a home with bedroom and bathroom on same floor withstairs to enter with rails. Housekeeping, grocery shopping, meal prep, and other household responsibilities have previously been completed by patient and patient's son. nursing education consultant discussed the patient's potential needs at dismissal based on their home setting, previous needs and responsibilities, homebound status, and relevant assessments with the patient. The patient will be safe and supported to return home with [facility] or previous services noted above when [...] PICC removal he would not need care. Sales Communications Manager will clarifywith home health team regarding if [...] chart and meeting with the patient, the nursing education consultant deemed the LACE+/readmission questions were appropriate. The [...] current readmission could have been prevented. The nursing education consultant will share this information with the care team. The patient reports understanding that he will dismiss from the hospital when medically stable. Thefollowing potential barriers to dismissal have been identified: Home Health Care Addendum 1230: Sales Communications [facility] received the [facility] but declined due to being at capacity. Plan: The patient agrees with the following plan. Patient's anticipated discharge disposition is: Home with Home Healthcare Referrals sent. Transportation upon dismissal will be provided by family--Kar . nursing education consultant recommended home health services. nursing education consultant provided information regarding the dismissal process and the Senior Linkage Line ([place] Board [place] A[place]) handout. nursing education consultant placed or requested the following hospital-based consult orders and/or referrals: None. nursing education consultant will follow up with the patient to [...] with updates and/or transition plan to come. nursing education consultant encouraged the patient to reach out with [...] OR Notes * Op Note - Sima Vneegas M.D. - 08/31/2023 1:07 PM CDT Pre-op Diagnosis Hematuria Post-op Diagnosis Hematuria General Claims Agent A orthotics prosthetics assistant actively participated and was necessary for [...] or filling defects. 5. Placement of [address] catheter with 20 cc in [...] The resectoscope was removed and a [address] catheter was placed with 20 [...] secondary to cystostomy closure presenting today from [place] with concerns for worsening hematuria. He was [...] 08/30/2023 8:48 AM CDT Pt transferred from [facility] via EMS, pt c/o blocked jon cath that started today. Pt had a right uretal stent exchange and an open bladder repair 08/15/23 and was discharged 08/25. Pt had a3 way jon placed at [facility], and transferred here because the clots returned. [...] RN, CPN, CCDS, CCS, CRC Clinical Documentation Traffic Line Painter Query created by: ELMER Barker, RN, CPN, [...] Romero M.D. LAB BLOOD ADD-ON [facility] [address] [place] [address], [facility] [address] [place] [address] * (ABNORMAL) Basic Metabolic Panel (09/05/2023 4:52 [...] Jakob De Paz M.D. LAB BLOOD ADD-ON [facility] [address] [facility] [address] [place] [address] * (ABNORMAL) Basic Metabolic Panel (09/04/2023 8:15 [...] CDT Jeffery Valdez M.D. LAB BLOOD ADD-ON [facility] [address] [place] [address], [facility] [address] [place] [address] * (ABNORMAL) CBC without Differential (09/04/2023 8:15 PM CDT) [facility] Hemoglobin 9.6(L) 13.2 - 16.6 g/dL 09/04/2023 [...] LAB BLOOD ADD-ON Performing Organization Address City/[facility] [[email or web address]] Co de Phone Number [facility] [address] [place] [address], [facility] [address] [place] [address] * Transfuse Red Blood Cells : (09/04/2023 3:30 PM CDT) Jeffery Valdez M.D. BLOOD TRANSFUSION OR DERABLES * Transfuse Red Blood Cells : , 1 Units (09/04/2023 3:30 PM CDT) Jeffery Valdez M.D. BLOOD TRANSFUSION OR DERABLES * Type and Screen (with Reflex Antibody ID) (09/04/2023 10:59 AM CDT) [facility] ABORh O Pos Not applicable 09/04/2023 11:46 AM CDT STRM Antibody Screen Negative Negative 09/04/2023 11:59 AM CDT STRM Type & Screen Expiration 09/07/2023 23:59 09/04/2023 11:46 AM CDT STRM Testing Location [facility] DEFAULT 09/04/2023 11:21 AM CDT STRM Blood (Blood, Venous) 09/04/2023 10:59 AM CDT 09/04/2023 11:21 AM CDT Jeffery Valdez M.D. LAB BLOOD BANK TEST ORDERABLES Performing Organization Address [facility] [[email or web address]] Co de Phone Number [facility] [address] [place] [address], [facility] [address] [place] [address] * Heparin Anti-Xa Assay (09/04/2023 7:34 AM CDT) [facility] Heparin Anti-Xa, P 0.12 IU/mL 2023 [...] Alvarez M.D. LAB BLOOD NON A DD-ON [facility] [address] [place] [address], [facility] [address] [place] [address] * (ABNORMAL) CBC without Differential (09/04/2023 7:34 [...] LAB BLOOD ADD-ON Performing Organization Address City/[facility] [[email or web address]] Co de Phone Number [facility] [address] [place] [address] * Heparin Anti-Xa Assay (09/04/2023 12:30 AM [...] BLOOD NON A DD-ON Performing Organization Address [facility] [[email or web address]] Co de Phone Number [facility] [address] [place] [address], [facility] [address] [place] [address] * Bacterial Culture, Aerobic + Susceptibility, Urine (09/03/2023 10:50 AM CDT) Urine Culture No growth after 1 day of incubation. 09/04/2023 8:52 AM CDT [facility] Urine (Urine, Indwelling Catheter) 09/03/2023 10:50 AM CDT 09/03/2023 11:53 AM CDT Comment:Specimen Source Site : Urine Jeffery Valdez M.D. LAB MICROBIOLOGY - G ENERAL ORDERABLES Performing Organization Address [facility] [[email or web address]] Co de Phone Number [facility] [address] [place] [address], [facility] [address] [place] [address] * (ABNORMAL) CBC without Differential (09/03/2023 3:29 AM CDT) Pathologist [facility] Hemoglobin 8.0(L) 13.2 - 16.6 g/dL 09/03/2023 [...] CDT Paula Hernandez M.D. LAB BLOOD ADD-ON [facility] [address] [place] [address], [facility] [address] [place] [address] * Heparin Anti-Xa Assay (09/03/2023 3:29 AM CDT) Pathologist [facility] Heparin Anti-Xa, P 0.26 IU/mL 2023 4:07 [...] BLOOD NON A DD-ON Performing Organization Address [facility] [[email or web address]] Co de Phone Number [facility] [address] [place] [address], [facility] [place] [address] * Heparin Anti-Xa Assay (09/02/2023 2:57 AM [...] BLOOD NON A DD-ON Performing Organization Address [facility]/ZIP Co de Phone Number [address] [address], [facility] [address] [place] [address] * (ABNORMAL) CBC without Differential (09/01/2023 8:16 PM CDT) [facility] Hemoglobin 8.5(L) 13.2 - 16.6 g/dL [...] CDT Paula Hernandez M.D. LAB BLOOD ADD-ON [facility] [address] [place] [address], [facility] [address] [place] [address] * Heparin Anti-Xa Assay (09/01/2023 6:50 PM CDT) [facility] Heparin Anti-Xa, P 0.35 IU/mL 2023 [...] BLOOD NON A DD-ON Performing Organization Address City/[facility]/[place] [address] * APTT (Activated Partial Thromboplastin Time) (09/01/2023 9:05 AM CDT) Pathologist [facility] Activated Partial Thrombopl Time, P 28 25 - 37 sec 09/01/2023 9:35 AM CDT [facility] Blood (Blood, Venous) 09/01/2023 9:05 AM CDT 09/01/2023 9:21 AM CDT Paula Hernandez M.D. LAB BLOOD ADD-ON Performing Organization Address City/[facility]/ZIP Co de Phone Number [facility] [address] [place], [place] [address] [place] [address] * (ABNORMAL) Basic Metabolic Panel (08/31/2023 9:36 [...] CDT Paula Hernandez M.D. LAB BLOOD ADD-ON [place] [address] [facility] [address] [place] [address] * (ABNORMAL) CBC without Differential (08/31/2023 9:36 [...] CDT Paula Hernandez M.D. LAB BLOOD ADD-ON [facility] [address] [place] [address], [place] DTL [facility] [address] [place] [address] * [place] Fluoro Less Than 1 Hour (08/31/2023 2:12 PM CDT) Narrative 152 HOS LOS RST - 08/31/2023 2:13 PM CDT This exam does not require a radiologist review or interpretation. Please refer to the patient's medical record on this date for clinical details. Mayur Alvarez M.D. IMG FLUOROSCOPY PROCEDURES Performing Organization Address [facility] [[email or web address]] Co de Phone Number 152 HOS LOS [...] volume clot burden in the bladder lumen. Palua Hernandez M.D. IMG CT PROCEDURES * (ABNORMAL) Hemoglobin (08/31/2023 4:21 AM CDT) Hemoglobin 7.8(L) 13.2 - 16.6 g/dL 08/31/2023 4:47 AM CDT DTL Blood (Blood, Venous) 08/31/2023 4:21 AM CDT 08/31/2023 4:35 AM CDT Kimi Vieira M.D., M.S. LAB BLOO D ADD-ON [facility] [address] [place] [address], [facility] DTL [facility] [address] [place] [address] * Type and Screen (with Reflex Antibody ID) (08/30/2023 9:50 PM CDT) [facility] ABORh O Pos Not applicable 08/30/2023 10:17 PM CDT STRM Antibody Screen Negative Negative 08/30/2023 10:31 PM CDT STRM Type & Screen Expiration 09/02/2023 23:59 08/30/2023 10:17 PM CDT STRM Testing Location [facility] DEFAULT 08/30/2023 9:58 PM CDT STRM Blood (Blood, Venous) 08/30/2023 9:50 PM CDT 08/30/2023 9:58 PM CDT Shannan Correa D.O., M.H.A. LAB BLOOD BANK TEST ORDERABLES Performing Organization Address City/[facility]/ZIP Co de Phone Number [facility] [address] [place], [place] [address] [place] [address] [address] [place] [address] * Lactate (08/30/2023 9:50 PM CDT) [facility] Lactate, P 1.8 0.5 - 2.2 mmol/L 08/30/2023 10:09 PM CDT [facility] Blood (Blood, Venous) 08/30/2023 9:50 PM CDT 08/30/2023 9:55 PM CDT Shannan Correa D.O., M.H.A. LAB BLOOD NON ADD-ON [facility] [address] [place], [place] [id number] [place], [place] [address] [facility] [address] [place] [address] * (ABNORMAL) Basic Metabolic Panel (08/30/2023 9:49 [...] M.H.A. LAB BLOOD ADD- ON [facility] [address] [place] [address], [facility] [address] [place] [address] * (ABNORMAL) CBC with Differential, Blood (08/30/2023 [...] Correa D.O., M.H.A. LAB BLOOD ADD- ON [facility] [address] [place] [address], [facility] STMA [facility] [address] [place] [address] [facility] [address] [place] [address] * DX Chest AP or PA and [...] Indwelling Jon catheter. Shannan Correa D.O., M.H.A. IM US PROCEDU RES * ECG 12 Lead (08/30/2023 7:44 PM CDT) Ventricular Rate ECG/Min 145 BPM MUSE NM Interval 136 ms MUSE QRSD Interval 64 ms MUSE QT Interval 260 ms MUSE QTC Interval 403 ms MUSE P Mcintyre 44 degrees MUSE R Mcintyre 9 degrees MUSE T Wave Mcintyre -76 degrees MUSE 08/30/2023 7:44 PM CDT [...] give total of 40 mEq Dissolve per monogram machine operator recommendations. Do NOT chew or swallow [...] 0 0850 (Given - Provider: Joy Jackson RNarendra) naloxone injection 0.2 mg (NARCAN) 0.2 mg, [...] needed, antiXa less than 0.1, Starting on [facility] 09/03/23 at 1608, Intensity type: [...] 2256 documented in this encounter Care Teams Carbon Furnace Operator Helper Relationship Specialty Start Date End Date Elsewhere, Pcp PCP - General Internal Medicine 08/13/23 documented as of this encounter
--- OUTSIDE RECORDS SUMMARY | 2023-10-21 08:15 | XMS_ITS | Encounter Summary ---
Author Organization [facility] Address [address] [place] [address] Care Team Providers Care Draw Operator Name Role Phone Elsewhere, Pcp Primary [...] has e electric, gas, oil, or water [employer] threatened to shut off services in your [...] on filedocumented in this encounter Care Teams Draw Operator Relationship Specialty Start Date End Date Elsewhere, Pcp PCP - General Internal Medicine 08/13/23 documented as of this encounter
--- OUTSIDE RECORDS SUMMARY | 2023-10-21 08:15 | XMS_ITS | Encounter Summary ---
Author Organization [facility] Address [address] [place] [address] Care Team Providers Care Deputy Director Of Public Works Name Role Phone Elsewhere, Pcp Primary Care Provider Unavailabl e Encounter Details Date Type Department Care Team (Late st Contact Info) Description 08/26/2023 Orders Only Department of Urology in [place], [place] [address] [place] [id number] Paula Hernandez M.D. [address] [place] [address] Social History Tobacco Use Types Packs/Day Years Used Date Smoking Tobacco: Never Smokeless Tobacco: Never [facility] Utilities Answer Date Recorded In the past 12 months has [facility] electric, gas, oil, or water [employer] threatened to shut off services in your [...] [facility] live 08/13/2023 Sex and Gender Information Value Date Recorded Sex Assigned at Not on file Gender Identity Not on file Sexual Orientation Not on file documented as of this encounter Plan of Treatment Not on file documented as of this encounter Visit Diagnoses Not on filedocumented in this encounter Care Teams Deputy Director Of Public Works Relationship Specialty Start Date End Date Elsewhere, Pcp PCP - General Internal Medicine 08/13/23 documented as of this encounter
--- OUTSIDE RECORDS SUMMARY | 2023-10-21 08:15 | XMS_ITS | Encounter Summary ---
Author Organization [facility] Address [address] [place] [address] Care Team Providers Care Personal Lines Appraiser Name Role Phone Elsewhere, Pcp Primary Care [...] have a [facility] place to live 08/13/2023 Sex and Gender [...] documented as of this encounter Care Teams Personal Lines Appraiser Relationship Specialty Start Date End Date Elsewhere, Pcp PCP - General Internal Medicine 08/13/23 documented as of this encounter
--- OUTSIDE RECORDS SUMMARY | 2023-10-21 08:16 | XMS_ITS | Encounter Summary ---
Author Organization [facility] Address [address] [place] [address] Care Team Providers Care Edging Machine Operator Name Role Phone Elsewhere, Pcp Primary Care Provider Unavailabl e Encounter Details Date Type Department Care Team (Latest Contact Info) Description 08/13/2023 3:42 PM CDT - 08/26/2023 4:11 PM CDT Hospital Encounter [facility], Sixth Floor [address] [place] [address] Darnell Garcia M.D. [address] [place] [phone] Boubacar Brock M.D. [address] [place] [address] Decline Functional Status [R53.81] (Primary Dx); Hematuria [...] [facility] to live 08/13/2023 Sex [...] AM CDT DISCHARGE SUMMARY BRIEF OVERVIEW Hospital: [facility] Discharge Provider: Boubacar Brock M.D. Primary Team: [facility] Urology Surgery - Chief Helga [...] M.D.Wen, Lexiaochuan, M.D.Premo, Hayley, M.D.Botkin, Hannah, M.D. [facility] ROMB OR DISCHARGE DISPOSITION Home or Self Care [1] ACTIVE ISSUES REQUIRING FOLLOW UP OUTPATIENT FOLLOW UP Scheduled Appointments 08/26/2023 1:00 PM KESHIA VERAS [facility] Radiology For appointment details refer to [...] he felt completely obstructed and presented to [place] [facility]. [place] Course Attempted Tabares insertion but bladder irrigation was unsuccessful on multiple attempts. Hung 1U pRBC's. Given some volume and transferred to [facility] ICU ICU Course Urology [...] CONSULT TO NUTRITION SUPPORT IP CONSULT TO TYPING SECTION CHIEF WOUND CARE CONDITION AT DISCHARGE stable Discharge [...] he felt completely obstructed and presented to [place] ED. [place] Course Attempted Tabares insertion but bladder irrigation was unsuccessful on multiple attempts. Hung 1U pRBC's. Given some volume and transferred to [facility] ICU ICU Course Urology [...] PM CDT You were discharged from the [facility] Urology Surgery - Chief A [...] Progress Notes * Emeterio Buchanan P.T., D.P.T., [facility] - 08/26/2023 4:27 PM CDT 08/26/23 8986 Reason Therapy Missed Reason Therapy Missed Receiving other care Attempted to see patient twice today. On 1st attempt patient was receiving blood transfusion and RNwas working on completing cares with him. On 2nd attempt patient was with another provider. * Chary Diamond M.A., O.T., [facility] - 08/26/2023 10:21 AM CDT Occupational Therapy [facility] Inpatient Treatment SUBJECTIVE Patient's Name: Kalen Vega Referring/Attending Provider: Boubacar Brock M.D. Reason for Referral: Occupational Therapy Evaluation and Treatment History of Present Illness: Kalen Vega is a 83 y.o. male who was admitted to [facility] in [place] on 08/13/2023 for Hematuria [R31.9]. Precautions Other Precautions: Abdominal, fall precautions, monitor tachycardia and hypertension Pain Assessment: Pain not reported during session. Subjective Comments: Agreeable to therapy session. Team Communication: The patient's status was discussed and coordination of care occurred with RN, Family/Caregiver, nurse tech Family/Caregiver Present: son and [id number] OBJECTIVE Vital Signs: Vitals not formally assessed during session. No concerns during chart review and the patient had nosigns or symptoms consistent with vital changes during therapy session. Outcome Measures: [facility] Inpatient Short Form: Putting on and [...] at or below 17 Clinicians answer the [facility] Inpatient Short Form based on observed [...] through pant leg first. - Adaptive Equipment: Product Sales Engineer TOILETING - Assist Level: Maximal Assist - [...] (Edge of bed) - Assist Level: Modified [place] - Equipment: bed rail - Therapist Delivery: assessed, instructed, assisted - Adaptive Equipment: leg valve assembler trialed ; however, patient able to move [...] extremity (stiff knee) first. Recommended adaptive equipment: Product Sales Engineer. Toileting - Patient instructed on accurate positioning [...] maximal exertion Handouts provided: Bathroom Safety Equipment [id number], Techniques to Help You Save Energy [id number] Patient was left in bedside chair with [...] health care OBJECTIVE Patient is admitted in [place] 6C -room 121 ASSESSMENT / PLAN BAG LINERaccount support manager met with patient and son Kar to inform them of home health care acceptance for PT/OT. Patient's son Kar and [id number] will provide transportation at the time of discharge. PLAN Patient to discharge home with home health care. Home Medical Care - Admitted Since 08/13/2023 Service Provider Selected Services Address Phone Fax Patient Preferred [facility], [facility] [address] [facility] [phone] -- Soda Fountain Operator: Ghazal NURSING: - Complete documentation in the Discharge Navigator including Nursing Report Info and Facility/NextLevel of Care Info - Call report and arrange for the patient's first visit - Send After Visit Summary and required packet of dismissal information with patient, including advance directive. PRIMARY SERVICE: - Please provide a non-[place] home health order for: physical therapy and [...] be provided by family--patient's son Kar and [id number]. 3. manager property recommended reaching out to family, friends, and neighbors for assistance. 4. manager property provided information regarding the dismissal process. Damaris [...] Reviewed with patient #1 Hematuria Please page [facility] ([phone]) or [facility] ([phone]) Nutrition Support Service pager with questions. * Emeterio Buchanan P.T., D.P.T., [facility] - 08/25/2023 9:35 AM CDT Physical Therapy Inpatient Treatment SUBJECTIVE Patient's Name: Kalen Vega Referring/Attending Provider: Boubacar Brock M.D. Reason for Referral: Physical Therapy Evaluate and Treat History of Present Illness: Kalen Vega is a 83 y.o. male who was admitted to [facility] in [place] on 08/13/2023 for Hematuria [R31.9] Precautions Other [...] fit with adult there which they usually [place]'s with a difference educated fully know who [...] 08/25/2023 9:18 AM CDT Occupational Therapy [facility] Inpatient Treatment SUBJECTIVE Patient's Name: Kalen Vega Referring/Attending Provider: Boubacar Brock M.D. Reason for Referral: Occupational Therapy Evaluation and Treatment History of Present Illness: Kalen Vega is a 83 y.o. male who was admitted to [facility] in [place] on 08/13/2023 for Hematuria [R31.9]. Precautions Other Precautions: Abdominal, fall precautions, monitor tachycardia and hypertension Pain Assessment: Pain not reported during session. Subjective Comments: Agreeable to therapy session. Team Communication: The patient's status was discussed and coordination of care occurred with RN, PT OBJECTIVE Vital Signs: Vitals monitored throughout session; within normal ranges. Outcome Measures: [facility] Inpatient Short Form: Putting on and [...] at or below 17 Clinicians answer the [facility] Inpatient Short Form based on observed [...] including figure four technique. Recommended adaptive equipment: Product Sales Engineer and Sock Aid. Toileting - Patient instructed [...] and modification tools as needed including leg valve assembler and/or bed adjustments. Bathroom DME: - Educated [...] in place draining clear yellow urine I/O ([id number]): Fifty-five cc serosanguineous from the drain 1 [...] 2.5 mg BID eliquis initiated 08/15 per [facility] med curbside recs --transition from eliquis [...] have him follow up with his local exerciser Comorbidities: --history of DVT status post IVC [...] Held Home Meds: None Consults: TPN, KESHIA Henrandez M.D. 08/25/2023 Please page the Urology Chief Service with questions or concerns. Patient seen and discussed with Dr. Venegas, chief urology resident personal banking representative. Pager during business hours: [phone] Pager after hours: [phone] * Emeterio Buchanan P.T., D.P.T., [facility] - 08/24/2023 10:46 AM CDT Physical Therapy Inpatient Treatment SUBJECTIVE Patient's Name: Kalen Vega Referring/Attending Provider: Boubacar Brock M.D. Reason for Referral: Physical Therapy Evaluate and Treat History of Present Illness: Kalen Vega is a 83 y.o. male who was admitted to [facility] in [place] on 08/13/2023 for Hematuria [R31.9] Precautions Other [...] baseline. PT Goal #2: Patient will perform mkg-zb-ynkmt transfer with modified independence and least restrictive [...] Total Kcal/day: 1370 based on 84 % Garcia[place] Non-standard additives: K 80 mEq Phos 30 [...] magnesium, phosphorus tomorrow. #1 Hematuria Please page [facility] ([phone]) or [facility] ([phone]) Nutrition Support Service pager with questions. * [...] catheter in place draining light smith I/O ([id number]): Forty-two cc serosanguineous from the drain 2.2 [...] 2.5 mg BID eliquis initiated 08/15 per [facility] med curbside recs --transition from eliquis [...] have him follow up with his local exerciser Comorbidities: --history of DVT status post IVC [...] discussed with Dr. Venegas, chief urology resident personal banking representative. Pager during business hours: [phone] Pager after hours: [phone] * Deanne Mike L.G.S.W., M.S.W. - 08/23/2023 11:25 AM CDT SUBJECTIVE Social Work spoke with [facility]. They cannot provide nursing home at this time. They can provide [...] discharge date of 08/24/23-08/26/23. Referrals sent: [facility] [place] [facility] (out of service area) [facility] ASSESSMENT / PLAN ASSESSMENT Patient has robust family support including a son living with him. PLAN Patient desires home health care through [facility]. Social Work will continue to follow to provide support. Social Work will continue to assist with discharge needs. Shorty Sun, M.S.W. 08/23/23 * Jazmine Benítez R.N., C.W.C.N. - 08/23/2023 11:10 AM CDT [facility] Wound RN consulted to assess Kalen Vega [...] stent and hematuria who is transferred from [place] ED with 3 days of hematuria and [...] None Unable to Measure Y *Wound Bed Closed;[place];Red Tissue Exposed None Odor None *Exudate Amount [...] 30 minutes > 30 minutes Ongoing management Nursing;Wound/anesthesia assistant Partial head to toe skin assessment [...] CDT * Emeterio Buchanan, P.T., D.P.T., [facility] - 08/23/2023 11:02 AM CDT Physical Therapy Inpatient Treatment SUBJECTIVE Patient's Name: Kalen Vega Referring/Attending Provider: Boubacar Brock M.D. Reason for Referral: Physical Therapy Evaluate and Treat History of Present Illness: Kalen Vega is a 83 y.o. male who was admitted to [facility] in [place] on 08/13/2023 for Hematuria [R31.9] Precautions Other [...] and O2 flow: Room air Outcome Measures: [facility] Inpatient Short Form: -[facility] [...] baseline. PT Goal #2: Patient will perform wkk-id-wowkg transfer with modified independence and least restrictive [...] D.P.T., [facility] * Demarco Salazar, PharmJonahD., R.Ph., [facility] - 08/23/2023 10:19 AM CDT Pharmacist [...] Total Kcal/day: 1370 based on 84 % Garcia[place] Non-standard additives: MAX chloride Thiamine 100 mg [...] magnesium, phosphorus tomorrow. #1 Hematuria Please page [facility] ([phone]) or [facility] ([phone]) Nutrition Support Service pager with questions. * Ivy Hernandez O.T. - 08/23/2023 8:30 AM CDT Occupational Therapy [facility] Inpatient Treatment SUBJECTIVE Patient's Name: Kalen Vega Referring/Attending Provider: Boubacar Brock M.D. Reason for Referral: Occupational Therapy Evaluation and Treatment History of Present Illness: Kalen Vega is a 83 y.o. male who was admitted to [facility] in [place] on 08/13/2023 for Hematuria [R31.9]. Precautions Other Precautions: Abdominal, fall precautions, monitor tachycardia and hypertension Pain Assessment: Pain not reported during session. Subjective Comments: Agreeable to therapy session. Team Communication: The patient's status was discussed and coordination of care occurred with RN, PT OBJECTIVE Vital Signs: Vitals monitored throughout session; within normal ranges. Outcome Measures: [facility] Inpatient Short Form: Putting on and [...] at or below 17 Clinicians answer the [facility] Inpatient Short Form based on observed [...] catheter in place draining clear yellow I/O ([id number]): 73 cc serosanguineous from the drain Seven [...] 2.5 mg BID eliquis initiated 08/15 per [facility] med curbside recs --transition from eliquis [...] have him follow up with his local exerciser Comorbidities: --history of DVT status post IVC filter, home Xarelto (holding since 08/11) -CAD status post cardiac stents (Plavix held since 08/11) -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 [facility] Summary: Diet: NPO, TPN Activity: Ad kong [...] discussed with Dr. Venegas, chief urology resident personal banking representative. Pager during business hours: [phone] Pager after hours: [phone] * Chary Diamond M.A., O.T., BCP - [...] just began receiving [facility] health care through [facility] patient would like referral sent there. Social Work sent referral. OBJECTIVE Patient is anticipated to remain at [place] for 3-5 days. Referrals sent: [facility] - [facility] ASSESSMENT / PLAN ASSESSMENT Patient has robust family support including a son living with him. PLAN Patient desires home health care through [facility]. Social Work will continue to follow to [...] y.o. male who was admitted to [facility] in [place] on 08/13/2023 for Hematuria [R31.9] Precautions Other [...] 3-5 steps with a railing?: A Lot [facility] Basic Mobility (V.2) Raw Score: 17 [facility] Basic Mobility (V.2) Standardized Score: 39.67 Interpretation: Based on scoring guidelines using the raw score value: Those going to home had an average score at or above 18 Those going to facility had an average score at or below 17 Clinicians answer the [facility] Inpatient Short Form based on observed [...] baseline. PT Goal #2: Patient will perform laj-oz-emobh transfer with modified independence and least restrictive [...] Total Kcal/day: 1370 based on 84 % Garcia[place] Non-standard additives: MAX chloride Thiamine 100 mg [...] place draining light smith colored urine I/O ([id number]): CBI on slow drip 75 cc serosanguineous [...] 2.5 mg BID eliquis initiated 08/15 per [facility] med curbside recs --transition from eliquis [...] have him follow up with his local exerciser Comorbidities: --history of DVT status post IVC [...] discussed with Dr. Venegas, chief urology resident personal banking representative. Pager during business hours: [phone] Pager after hours: [phone] * Qamar Jim, Pharm.DJonah, R.Ph. - 08/21/2023 [...] place draining clear smith colored urine I/O ([id number]): 1800 cc urine output 75 cc serosanguineous [...] have him follow up with his local exerciser Comorbidities: --history of DVT status post IVC [...] discussed with Dr. Venegas, chief urology resident personal banking representative. Pager during business hours: [phone] Pager after hours: [phone] * Lizette Harvey M.D. - 08/20/2023 8:08 [...] draining clear thin merlot colored urine I/O ([id number]): 240 cc p.o. intake 760 cc urine [...] 2.5 mg BID eliquis initiated 08/15 per [facility] med curbside recs --transition from eliquis [...] have him follow up with his local exerciser Comorbidities: --history of DVT status post IVC [...] questions or concerns. Pager during business hours: [phone] Pager after hours: [phone] * Qamar Jim, PharmJonahDJonah, R.Ph. - 08/20/2023 [...] y.o. male who was admitted to [facility] in [place] on 08/13/2023 for Hematuria [R31.9]. Precautions Other Precautions: Abdominal, fall precautions, monitor tachycardia and hypertension Pain Assessment: Pain not reported during session. Subjective Comments: Patient greeted in chair and agreeable to therapy session. Team Communication: The patient's status was discussed and coordination of care occurred with RN OBJECTIVE Vital Signs: Vitals monitored throughout session; within normal ranges. Outcome Measures: [facility] Inpatient Short Form: Putting on and [...] at or below 17 Clinicians answer the [facility] Inpatient Short Form based on observed [...] about patient's nutritional care please contact pager [phone] on weekdays or [phone] on weekends/holidays. NUTRITION ASSESSMENT: Mr. Vega is [...] a regular diet. Nutrition history: Typically, Mr. Veag has a good appetite. He has maintained [...] care everywhere) ESTIMATED NEEDS: Total Calorie Needs: 0126-7101 calories/day Method to Estimate Energy Needs: kcal/kg [...] y.o. male who was admitted to [facility] in [place] on 08/13/2023 for Hematuria [R31.9] Precautions Other [...] mmHg O2: 96% Room air Outcome Measures: [facility] Inpatient Short Form: -[facility] [...] Service, and Care Management Family/Caregiver Present: Kar Alfaor Patient was left in bedside chair at [...] Ongoing PT Goal #2: Patient will perform sdw-ao-ntizs transfer with modified independence and least restrictive [...] in place draining clear pink urine I/O ([id number]): 370 p.o. intake 1 L urine output [...] 2.5 mg BID eliquis initiated 08/15 per [facility] med curbside recs --transition from eliquis [...] have him follow up with his local exerciser Comorbidities: --history of DVT status post IVC [...] questions or concerns. Pager during business hours: [phone] Pager after hours: [phone] * Lisa Seaman, O.T., [facility] - 08/18/2023 11:15 AM CDT Occupational Therapy [facility] Inpatient Treatment SUBJECTIVE Patient's Name: Kalen Vega Referring/Attending Provider: Boubacar Brock M.D. Reason for Referral: Occupational Therapy Evaluation and Treatment History of Present Illness: Kalen Vega is a 83 y.o. male who was admitted to [facility] in [place] on 08/13/2023 for Hematuria [R31.9]. Precautions Other [...] doffing over it last. Recommended adaptive equipment: Product Sales Engineer and Sock Aid. Patient was left in bedside chair, with nursing/TRIM MOUNTER at end of session with call light [...] y.o. male who was admitted to [facility] in [place] on 08/13/2023 for Hematuria [R31.9] Precautions Other [...] 3-5 steps with a railing?: A Little [facility] Basic Mobility (V.2) Raw Score: 18 [facility] Basic Mobility (V.2) Standardized Score: 41.05 Interpretation: Based on scoring guidelines using the raw score value: Those going to home had an average score at or above 18 Those going to facility had an average score at or below 17 Clinicians answer the [facility] Inpatient Short Form based on observed [...] following coordination of care occurred with the metal reed tuner/Caregiver Present: No Patient was left in bedside [...] Progressing PT Goal #2: Patient will perform qvv-im-iprjv transfer with modified independence and least restrictive [...] in place draining clear pink urine I/O ([id number]): 1.2 L p.o. intake 1 L urine [...] diet later today follow up vascular medicine [facility] Summary: Diet: currently limited clears Activity: Ad kong DVT PPX: heparin drip GI PPX: Pantoprazole Bowel Regimen:N/A IVF: none Abx/Microbiology: Ceftriaxone Pain Control: Tylenol, oxycodone 08/18. Scheduled trospium Home Meds Resumed: Metoprolol, tamsulosin, rosuvastatin Held Home Meds: None Consults: None Paula Hernandez M.D. 08/18/2023 6:02 AM CDT Please page the Urology Chief Service with questions or concerns. Pager during business hours: [phone] Pager after hours: [phone] * Tayler Greenwood M.D., M.Ed. - 08/17/2023 [...] the patient follow up with his primary exerciser at discharge we will which we will [...] Ringer's * Lisa Seaman, O.T., [facility] - 08/17/2023 10:47 AM CDT Occupational Therapy [facility] Inpatient Treatment SUBJECTIVE Patient's Name: Kalen Vega Referring/Attending Provider: Boubacar Brcok M.D. Reason for Referral: Occupational Therapy Evaluation and Treatment History of Present Illness: Kalen Vega is a 83 y.o. male who was admitted to [facility] in [place] on 08/13/2023 for Hematuria [R31.9]. Precautions Other [...] at or below 17 Clinicians answer the [facility] Inpatient Short Form based on observed [...] in place draining clear pink urine I/O ([id number]): NG tube 200 cc Two hundred sixty-five [...] questions or concerns. Pager during business hours: [phone] Pager after hours: [phone] * Audi De Luna P.T., D.P.T. - [...] in place draining clear pink urine I/O ([id number]): NG tube 200 cc Two hundred sixty-five [...] will discuss with Cardiology need for both [facility] Summary: Diet: NPO Activity: Ad kong DVT PPX: Ashley heparin GI PPX: Pantoprazole Bowel Regimen:N/A IVF: LR 75 Abx/Microbiology: Ceftriaxone Pain Control: Tylenol, oxycodone 08/18. Scheduled trospium Home Meds Resumed: Metoprolol, tamsulosin, rosuvastatin Held Home Meds: None Consults: None Signed by: Paula Hernandez M.D. 08/16/2023 6:02 AM CDT Please page the Urology Chief Service with questions or concerns. Pager during business hours: [phone] Pager after hours: [phone] * Paula Hernandez M.D. - 08/15/2023 9:09 AM CDT PROGRESS NOTE: No events. AFVSS. Pain controlled. No flatus. No further emesis overnight. Abdomen more distended than yesterday but remained soft, tender to deep palpation only, no rebound. Twenty-four [place] Alcock three-way catheter remains off CBI, draining [...] above was discussed with Dr. Brock, urology is consultant on-call who is in agreement with [...] Family to bring his home enzalutamide from [place] Irvin Franco Pharm.D., R.Ph. * Jakob De Paz M.D. - 08/14/2023 11:34 AM CDT PROGRESS NOTE: No events. AFVSS. Pain controlled. No flatus. Nauseous and had 2 episodes of emesis. Abdomen more distended than yesterday but remained soft, tender to deep palpation only, no rebound. Twenty-four [place] Alcock three-way catheter remains off CBI, draining [...] above was discussed with Dr. Brock, urology is consultant on-call who is in agreement with [...] Patient discussed with Dr. Sylvester. Page [id number] [id number] Carlos Alberto Henson M.D. PGY-1 CCM 3 [...] DVT and clopidogrel for CAD s/p stent Ivrin Franco Pharm.D., R.Ph. documented in this encounter [...] who have asked we place a 24 [place] 3-way urinary catheter pending evaluation. We will [...] him to present to local hospital in [place]. OSH Course: His hemoglobin was in the [...] Insecurity: No Food Insecurity (02/16/2022) [facility] from [facility] Food Insecurity Worried About Running Out of Food in the Last Year: 1 Transportation Needs: No Transportation Needs (02/16/2022) [facility] [place], [email or web address] Transportation Needs Lack of Transportation (Medical): 1 Housing Stability: Low Risk (02/16/2022) Received from [facility] [place], [email or web address] Housing Stability Unable to Pay for [...] Dr. Sylvester and Dr. Rodriguez. Page [id number] Carlos Alberto Henson M.D. PGY-1 CCM 3 [...] As expected PRIMARY PROCEDURALIST FAY Cerna MD [phone] ASSISTANTS none COMPLICATIONS None. DRAINS None. IMPLANTS [...] peripheral vein targets. Ultrasound used for assessment: Curious Sense Fit Provider contacted (include name): Uro Surg [...] 14 -- AST U/L 25 -- Radiology: @[email or web address]@ Swallow Assessment: No data to display ASSESSMENT / PLAN #1 Hematuria ASSESSMENT Currently we are asked to visit with Mr. Vega for consideration of parenteral nutrition. Nutrition Needs: Height: 180 cm Admission Weight: 91.2 kg (08/13/2023) Current Weight: 90.2 kg BMI (Calculated): 27.8 kg/m?? Total Calorie Needs: 3845-1758 calories/day Method to Estimate Energy Needs: [place] ( ) Weight Used for Equation Calculations: [...] on electrolytes Please call NSS pager at [phone] at [facility] or [phone] at [facility] with any additional [...] STENT EXCHANGE; Surgeon: Boubacar Brock M.D.; Location: [facility] ROMB OR FAMILY HISTORY No [...] values in this interval not displayed. Radiology: @[id number]@ Swallow Assessment: No data to display ASSESSMENT / PLAN #1 Hematuria ASSESSMENT Currently we are asked to visit with Mr. Vega for consideration of parenteral nutrition. Nutrition Needs: Height: 180 cm Admission Weight: 91.2 kg (08/13/2023) Current Weight: 90.2 kg BMI (Calculated): 27.8 kg/m?? Total Calorie Needs: 7755-2707 calories/day Method to Estimate Energy Needs: kcal/kg [...] on electrolytes Please call NSS pager at [phone] at [facility] or [phone] at [facility] with any additional [...] stent along with other stents and apparently exerciser in the past I recommended indefinite dual [...] 20 mL/hr, intravenous, Continuous, Frieda Garner APRN, CTE TEACHER, Last Rate: 20 mL/hr at 08/15/23 1459, [...] but he can discuss this with his exerciser at home. We need to balance transfusion [...] y.o. male who was admitted to [facility] in [place] on 08/13/2023 for Hematuria [R31.9]. Relevant Medical History: Kalen Vega is a 83 y.o. 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 male who was admitted to [facility] in [place] on 08/13/2023 for Hematuria with cystotomy and [...] Min assist for mobility. Required assist for [id number] for force generation and is generally standby [...] Ongoing PT Goal #2: Patient will perform ehl-yb-[id number] transfer with modified independence and least restrictive [...] y.o. male who was admitted to [facility] in [place] on 08/13/2023 for Hematuria [R31.9]. Relevant Medical [...] with RN, PT Family/Caregiver Present: Son and [id number]. Home Living and Equipment: Lives with: Spouse/Significant [...] walker, Single point cane Adaptive Equipment Owned: Product Sales Engineer, Long Handled Shoe Horn Other DME Owned: Regular flat bed Prior Level of Function and Mobility: Basic Activities of Daily Living: Independent Instrumental Activities of Daily Living: Required Assistance: Laundry son assists with laundry and cooking Functional Mobility: Independent Driving: Yes Occupational Role: Retired Leisure Interests: watch movies, plays [employer] train, meets friends for breakfast. Patient/Caregiver Goals: [...] at or below 17 Clinicians answer the [facility] Inpatient Short Form based on observed [...] all are a great support. 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 Patient expressed understanding and was [...] engaged in conversation with his family when clinical social worker entered the room. He was [...] locally at approximately 3:00 a.m. a 22 [place]an three-way catheter was placed and CBI wasinitiated. Unfortunately he clotted off the catheter multiple times despite manual irrigations, started to develop hypotension and tachycardia and [facility] He relays the above [...] non-distended, non-peritonitic Extremities: No edema : 22 [place]an three-way Tabares catheter draining a minimal amount [...] urinary retention Given his non draining 22 [place]an three-way catheter the Urology techs and I subsequently exchanged this for a 24 [place]an three-way Alcock in the usual sterile fashion. [...] to follow [place] [phone] with questions or concerns Sixto Cain M.D. [...] peripheral vein targets. Ultrasound used for assessment: Curious Sense Fit Provider contacted (include name): Uro Surg [...] CDT Patient Transfer Note Patient transferred to: [facility] Room: [facility] Accompanied by: JAMEL Garcia Report called? [...] signs? YES * Sixto Teague R.R.TJonah, L.R.T., [facility] - 08/14/2023 7:00 AM CDT Patient is [...] the last 24hours. Sixto Teague R.R.T., L.R.TJonah, [facility] 08/14/23 7:00 AM CDT Electronically signed by Sixto Teague R.R.Cooper, L.R.T., [facility] at 08/14/2023 7:02 AM CDT * Radha [...] Bladder Spontaneous Post-op Diagnosis Rupture Bladder Spontaneous [employer] Manager A first sampler actively participated and was necessary for one [...] the supine flexed position. His existing 24 [place]an three-way Tabares catheter was noted to be [...] additional tissue for additional coverage. A 24 [place] three-way catheter was placed with 15 cc in the balloon. This irrigated to light clear pink. A 15 [place]an YARELI drain wasplaced into the pelvis exiting left lower quadrant. The fascia was closed with interrupted and [id number] 0 PDS. Fat was approximated using 3-0 [...] RN, CPN, CCDS, CCS, CRC Clinical Documentation Dining Room Hostess Query created by: ELMER Barker, RN, CPN, [...] stent and hematuria who is transferred from [place] ED with 3 days of hematuria & [...] RN, CPN, CCDS, CCS, CRC Clinical Documentation Dining Room Hostess Query created by: ELMER Barker, RN, CPN, [...] he felt completely obstructed and presented to [place] ED. [place] Course Attempted Tabares insertion but bladder irrigation was unsuccessful on multiple attempts. Hung 1U pRBC's. Given some volume and transferred to [facility] ICU ICU Course Urology consulted and were able to replace Tabraes with Alcock catheter. Successful irrigation. However, because [...] 1 Units (08/26/2023 12:52 PM CDT) Corin María Elena Temple BLOOD TRANSFUSION OR DERABLES * IR PICC [...] 08/26/2023 7:16 AM CDT STRM Testing Location [place] DEFAULT 08/26/2023 6:57 AM CDT STRM Blood (Blood, Venous) 08/26/2023 6:50 AM CDT 08/26/2023 6:57 AM CDT Narrative Authorizing Provider Result Abdifatah Hernandez M.D. LAB BLOOD BANK TEST ORDERABLES [facility] [address] [place] [address], [facility] [address] [place] [address] * (ABNORMAL) CBC without Differential (08/26/2023 3:20 [...] M.D. LAB BLOOD ADD-ON Performing Organization Address City/[facility]/ZIP Co de Phone Number [facility] [place] [address] [place], [place] [id number] [place] [address] [address] [place] [address] * Magnesium (08/26/2023 3:20 AM CDT) Pathologist [facility] Magnesium, S 2.1 1.7 - 2.3 mg/dL 08/26/2023 4:04 AM CDT DTL Blood (Blood, Venous) 08/26/2023 3:20 AM CDT 08/26/2023 3:50 AM CDT Boubacar Brock M.D. LAB BLOOD ADD-ON [facility] [place] [address] [place] [address], [facility] [address] [place] [address] * (ABNORMAL) Renal Function Panel (08/26/2023 3:20 [...] Boubacar Brock M.D. LAB BLOOD ADD-ON [facility] [place] [address] [place] [address], [place] DTL [facility] [address] [place] [address] * Heparin Anti-Xa Assay (08/26/2023 3:20 AM [...] Hoyt M.D. LAB BLOOD NON ADD -ON [place] [address] [address] [place], [place] [phone] [place] [address] [place] [address] * (ABNORMAL) CBC without Differential (08/25/2023 3:24 AM CDT) Pathologist [facility] Hemoglobin 8.3(L) 13.2 - 16.6 [...] Corin Ring M.D. LAB BLOOD ADD-ON [facility] [place] [address] [place] [address], [facility]TR[facility] [address] [place] [address] * (ABNORMAL) Renal Function Panel (08/25/2023 3:24 [...] LAB BLOOD ADD-ON Performing Organization Address [facility] Co de Phone Number [facility] [place] [address] [place], [place] [phone] [place] [address] [address] [place] [address] * Magnesium (08/25/2023 3:24 AM CDT) Pathologist [facility] Magnesium, S 2.2 1.7 - 2.3 mg/dL 08/25/2023 4:36 AM CDT DTL Blood (Blood, Venous) 08/25/2023 3:24 AM CDT 08/25/2023 4:19 AM CDT Boubacar Brock M.D. LAB BLOOD ADD-ON Performing Organization Address [facility] de Phone Number [facility] [place] [address] [place] [address], [facility] [address] [place] [address] * Heparin Anti-Xa Assay (08/25/2023 3:24 AM CDT) Pathologist [facility] Heparin Anti-Xa, P 0.31 IU/mL [...] LAB BLOOD NON ADD-ON Performing Organization Address City/[facility]/ZIP Co de Phone Number [facility] [place] [address] [place] [address], [facility] DTR[facility] [address] [place] [address] * (ABNORMAL) CBC without Differential (08/24/2023 5:28 AM CDT) [facility] Hemoglobin 8.1(L) 13.2 - 16.6 g/dL [...] Corin Ring M.D. LAB BLOOD ADD-ON [facility] [place] [address] [place] [address], [facility] DTL [facility] [address] [place] [address] * Magnesium (08/24/2023 5:28 AM CDT) Magnesium, S 2.3 1.7 - 2.3 mg/dL 08/24/2023 6:19 AM CDT DTL Blood (Blood, Venous) 08/24/2023 5:28 AM CDT 08/24/2023 6:00 AM CDT Boubacar Brock M.D. LAB BLOOD ADD-ON [facility] [place] [address] [place] [address], [facility] DTL [facility] [address] [place] [address] * (ABNORMAL) Renal Function Panel (08/24/2023 5:28 [...] LAB BLOOD ADD-ON Performing Organization Address [facility] Co de Phone Number [facility] [place] [address] [place] [address] * Heparin Anti-Xa Assay (08/24/2023 5:28 AM [...] LAB BLOOD NON ADD-ON Performing Organization Address [facility] Co de Phone Number [facility] [place] [address] [place] [address], [facility]TR[facility] [address] [place] [address] * (ABNORMAL) Potassium (08/23/2023 9:58 PM CDT) Pathologist [facility] Potassium, S 3.5(L) 3.6 - 5.2 mmol/L 08/23/2023 10:45 PM CDT DT Blood (Blood, Venous) 08/23/2023 9:58 PM CDT 08/23/2023 10:30 PM CDT Boubacar Brock M.D. LAB BLOOD ADD-ON Performing Organization Address City/[facility]/ZIP Co de Phone Number [facility] [place] [address] [place] [address], [facility] [address] [place] [address] * (ABNORMAL) Phosphorus Inorganic (08/23/2023 9:58 PM CDT) [facility] Phosphorus (Inorganic), S 2.1(L) 2.5 - 4.5 mg/dL 08/23/2023 10:45 PM CDT DT Blood (Blood, Venous) 08/23/2023 9:58 PM CDT 08/23/2023 10:30 PM CDT Paula Hernandez M.D. LAB BLOOD ADD-ON Performing Organization Address City/[facility]/ZIP Co de Phone Number [facility] [place] [address] [place] [address], [facility] [address] [place] [address] * Heparin Anti-Xa Assay (08/23/2023 11:37 AM CDT) Pathologist [facility] Heparin Anti-Xa, P 0.51 IU/mL [...] LAB BLOOD NON ADD-ON Performing Organization Address [facility]/ZIP Co de Phone Number [facility] [place] [address] [place], [place] [phone] [place] [address] [facility]TR[facility] [address] [place] [address] * (ABNORMAL) CBC without Differential (08/23/2023 3:42 AM CDT) Pathologist [facility] Hemoglobin 8.3(L) 13.2 - 16.6 [...] M.D. LAB BLOOD ADD-ON Performing Organization Address City/[facility]/ZIP Co de Phone Number [facility] [place] [address] [place] [place] [address] * Triglycerides (08/23/2023 3:42 AM CDT) Pathologist [facility] Triglycerides 106 mg/dL 08/23/2023 4:50 AM CDT DT Comment: ----REFERENCE VALUE---- Normal: <150 mg/dL Borderline High: 150-199 mg/dL High: 200-499 mg/dL Very High: > or =500 mg/dL Fasting (8 HR or more) Yes 08/23/2023 4:19 AM CDT DTL Blood (Blood, Venous) 08/23/2023 3:42 AM CDT 08/23/2023 4:19 AM CDT Boubacar rBock M.D. LAB BLOOD ADD-ON [facility] [place] [address] [place] [address] * Magnesium (08/23/2023 3:42 AM CDT) Pathologist [facility] Magnesium, S 2.2 1.7 - 2.3 mg/dL 08/23/2023 4:50 AM CDT DT Blood (Blood, Venous) 08/23/2023 3:42 AM CDT 08/23/2023 4:19 AM CDT Boubacar Brock M.D. LAB BLOOD ADD-ON [facility] [place] [address] [place] [address] * (ABNORMAL) Renal Function Panel (08/23/2023 3:42 AM CDT) Pathologist [facility] Potassium, S 3.1(L) 3.6 - 5.2 mmol/L 08/23/2023 4:50 AM CDT DT Sodium, S 138 135 - 145 mmol/L [...] Brock M.D. LAB BLOOD ADD-ON [facility] [place] [employer] [facility] [address] [place] [address], [facility]TR[facility] [address] [place] [address] * Heparin Anti-Xa Assay (08/23/2023 3:41 AM [...] LAB BLOOD NON ADD-ON Performing Organization Address City/[facility]/ZIP Co de Phone Number [facility] [place] [address] [place] [address], [facility] [address] [place] [address] * Glucose, POCT (08/22/2023 11:38 PM CDT) Glucose, POCT, B 117 70 - 140 mg/dL 08/23/2023 1:06 AM CDT PCLX Site Capillary 08/23/2023 1:06 AM CDT PCLX Last Intake NPO 08/23/2023 1:06 AM CDT PCLX Blood 08/22/2023 11:3 8 PM CDT 08/23/2023 1:06 AM CDT Unknown Provider LAB POCT ORDERABLES- MANUAL Performing Organization Address City/[facility]/ZIP Co de Phone Number POC [facility] [address] [place] [address], [facility] PCLX [employer] POC [address] [place] [address] * Heparin Anti-Xa Assay (08/22/2023 10:14 PM [...] Brock M.D. LAB BLOOD NON ADD-ON [facility] [place] [address] [place] [address], [facility] [address] [place] [address] * CT Abdomen Pelvis without IV Contrast [...] colon likelyrepresenting mild proctocolitis. Paula Hernandez M.D. [facility] CT PROCEDURES * Heparin Anti-Xa Assay (08/22/2023 [...] LAB BLOOD NON ADD-ON Performing Organization Address City/State/[facility] Co de Phone Number [address] [address], [place] [address] [address] * Creatinine, Body Fluid (08/22/2023 3:30 PM [...] transport rates. All other fluids refer to www.[employer].com for further interpretive information. This test has been modified from the assembler finger buffs's instructions. Its performance characteristics were determined by [facility] in a manner consistent with CLIA requirements. This test has not been cleared or approved by the U.S. Food and Drug Administration. Fluid Type, Creatinine Fluid, Abdomen 08/22/2023 3:52 PM CDT DTL Fluid (Abdomen) 08/22/2023 3 :30 PM CDT 08/22/2023 6:36 PM CDT Corin Ring M.D. LAB BODY FLUIDS AND STOOLS ORDERABLES [facility] [place] [employer] [facility] [address] [place] [address], [place] DTL [facility] [address] [place] [address] * Transfuse Red Blood Cells : (08/22/2023 [...] of a right IJ vein single-lumen 4 [place]an tunneled PowerPICC ready for immediate use. NR [...] advanced into the IVC and a 4 [place]an dilator advanced over the wire and attached to a one-way stopcock. A suitable exit site in the right anterior chest was anesthetized and a small incision made. A 4 [place] single-lumen PowerPICC was then tunneled from the [...] Wireadvanced into the IVC and a 4 [place] dilator advanced over the wire andattached to a one-way stopcock. A suitable exit site in the right anteriorchest was anesthetized and a small incision made. A 4 [place] single-lumen PowerPICC was then tunneled fromthe skin [...] of a right IJ vein single-lumen 4 [place] tunneled PowerPICCready for immediate use. NR Kimi [...] M.D. LAB BLOOD ADD-ON Performing Organization Address City/[facility]/ZIP Co de Phone Number [facility] [place] [address] [place] [address], [facility] STMA [facility] [address] [place] [address] * Type and Screen (with Reflex Antibody [...] BANK T EST ORDERABLES Performing Organization Address City/[facility]/ZIP Co de Phone Number [facility] [place] [address] [place] [address], [facility] STRM [facility] [address] [place] [address] * (ABNORMAL) Comprehensive Metabolic Panel (08/22/2023 2:40 [...] Whitehead M.D. LAB BLOOD ADD-ON [facility] [address] [place] [address], [place] DTL [facility] [address] [place] [address] * Heparin Anti-Xa Assay (08/22/2023 2:40 AM [...] Whitehead M.D. LAB BLOOD NON AD D-ON [facility] [place] [address] [place], [place] [phone] [place] [address] [facility]TR[facility] [address] [place] [address] * (ABNORMAL) APTT (Activated Partial Thromboplastin Time) (08/22/2023 2:40 AM CDT) [facility] Activated Partial Thrombopl Time, P 64(H) 25 - 37 sec 08/22/2023 3:12 AM CDT STMA Blood (Blood, Venous) 08/22/2023 2:40 AM CDT 08/22/2023 3:01 AM CDT Latisha Whitehead M.D. LAB BLOOD ADD-ON [facility] [place] [address] [place] [address], [facility] STMA [facility] [address] [place] [address] * Triglycerides (08/21/2023 7:32 AM CDT) Triglycerides 98 mg/dL 08/21/2023 9:03 AM CDT DT Comment: ----REFERENCE VALUE---- Normal: <150 mg/dL Borderline High: 150-199 mg/dL High: 200-499 mg/dL Very High: > or =500 mg/dL Fasting (8 HR or more) Unknown 08/21/2023 8:38 AM CDT DTL Blood (Blood, Venous) 08/21/2023 7:32 AM CDT 08/21/2023 8:38 AM CDT Lizette Harvey M.D. LAB BLOOD ADD-O N [facility] [place] [address] [place] [address] * Phosphorus Inorganic (08/21/2023 7:32 AM CDT) Pathologist [facility] Phosphorus (Inorganic), S 2.6 2.5 - 4.5 mg/dL 08/21/2023 9:03 AM CDT DT Blood (Blood, Venous) 08/21/2023 7:32 AM CDT 08/21/2023 8:38 AM CDT Lizette Harvey M.D. LAB BLOOD ADD-O N [facility] [place] [address] [place] [address] * Magnesium (08/21/2023 7:32 AM CDT) Magnesium, S 2.3 1.7 - 2.3 mg/dL 08/21/2023 9:03 AM CDT DT Blood (Blood, Venous) 08/21/2023 7:32 AM CDT 08/21/2023 8:38 AM CDT Lizette Harvey M.D. LAB BLOOD ADD-O N [facility] [place] [address] [place] [address], [facility] DTL [facility] [address] [place] [address] * (ABNORMAL) Basic Metabolic Panel (08/21/2023 7:32 AM CDT) Pathologist [facility] Potassium, S 3.3(L) 3.6 - 5.2 mmol/L [...] Harvey M.D. LAB BLOOD ADD-O N [facility] [place] [address] [place] [address], [facility] [address] [place] [address] * (ABNORMAL) CBC without Differential (08/21/2023 7:32 AM CDT) Pathologist [facility] Hemoglobin 8.0(L) 13.2 - 16.6 g/dL 08/21/2023 [...] Harvey M.D. LAB BLOOD ADD-O N [facility] [place] [address] [place] [address], [facility] [address] [place] [address] * Heparin Anti-Xa Assay (08/21/2023 7:32 AM CDT) [facility] Heparin Anti-Xa, P 0.49 IU/mL 2023 [...] Brock M.D. LAB BLOOD NON ADD-ON [facility] [place] [address] [place] [address] * (ABNORMAL) APTT (Activated Partial Thromboplastin Time) (08/21/2023 7:32 AM CDT) [facility] Activated Partial Thrombopl Time, P 49(H) 25 - 37 sec 08/21/2023 8:31 AM CDT DT Blood (Blood, Venous) 08/21/2023 7:32 AM CDT 08/21/2023 8:06 AM CDT Boubacar Brock M.D. LAB BLOOD ADD-ON [facility] [place] [address] [place] [address] * Place peripherally inserted central catheter (PICC) (08/20/2023 8:40 PM CDT) Narrative MMODAL - 08/20/2023 8:40 PM CDT Miko Shah R.N. ? 08/20/2023 ??8:[address] peripherally inserted central catheter (PICC) Performed by: Miko Shah R.N. Authorized by: Lizette Harvey M.D. ?? Care team members present 1. Miko Shah RRitesh. 2. Geneva Cortez R.N. PROCEDURE DETAILS Select [...] the atrophic right kidney. Lizette Harvey M.D. [facility] CT PROCEDUR ES * (ABNORMAL) Basic Metabolic Panel (08/20/2023 3:19 AM CDT) Pathologist [facility] Potassium, [...] M.D. LAB BLOOD ADD-ON Performing Organization Address City/[facility]/ZIP Co de Phone Number [facility] [place] [address] [place], [place] [id number] [place] [address] DTL [facility] [facility] [address] [place] [address] * (ABNORMAL) CBC without Differential (08/20/2023 3:19 [...] Paula Hernandez M.D. LAB BLOOD ADD-ON [facility] [place] [address] [place] [address], [facility] DTL [facility] [address] [place] [address] * (ABNORMAL) APTT (Activated Partial Thromboplastin Time) (08/20/2023 3:19 AM CDT) Activated Partial Thrombopl Time, P 52(H) 25 - 37 sec 08/20/2023 4:33 AM CDT DTL Blood (Blood, Venous) 08/20/2023 3:19 AM CDT 08/20/2023 4:10 AM CDT Boubaacr Brock M.D. LAB BLOOD ADD-ON [facility] [place] [address] [place] [address], [facility] [address] [place] [address] * (ABNORMAL) APTT (Activated Partial Thromboplastin Time) (08/19/2023 10:57 AM CDT) [facility] Activated Partial Thrombopl Time, P 54(H) 25 - 37 sec 08/19/2023 11:44 AM CDT DT Blood (Blood, Venous) 08/19/2023 10:57 AM CDT 08/19/2023 11:26 AM CDT Boubacar Brock M.D. LAB BLOOD ADD-ON [facility] [place] [address] [place] [address], [facility] [address] [place] [address] * (ABNORMAL) APTT (Activated Partial Thromboplastin Time) (08/19/2023 4:51 AM CDT) Pathologist [facility] Activated Partial Thrombopl Time, P 59(H) 25 - 37 sec 08/19/2023 5:53 AM CDT DTL Blood (Blood, Venous) 08/19/2023 4:51 AM CDT 08/19/2023 5:36 AM CDT Boubacar Brock M.D. LAB BLOOD ADD-ON Performing Organization Address City/[facility]/ZIP Co de Phone Number [facility] [place] [address] [place] [address], [facility] [address] [place] [address] * (ABNORMAL) APTT (Activated Partial Thromboplastin Time) (08/18/2023 10:03 PM CDT) Activated Partial Thrombopl Time, P 63(H) 25 - 37 sec 08/18/2023 10:41 PM CDT DTL Blood (Blood, Venous) 08/18/2023 10:03 PM CDT 08/18/2023 10:19 PM CDT Boubacar Brock M.D. LAB BLOOD ADD-ON Performing Organization Address City/[facility]/ZIP Co de Phone Number [facility] [place] [address] [place] [address] * (ABNORMAL) APTT (Activated Partial Thromboplastin Time) (08/18/2023 2:50 PM CDT) Activated Partial Thrombopl Time, P 64(H) 25 - 37 sec 08/18/2023 3:25 PM CDT DTL Blood (Blood, Venous) 08/18/2023 2:50 PM CDT 08/18/2023 3:07 PM CDT Boubacar Brock M.D. LAB BLOOD ADD-ON [facility] [place] [address] [place], [place] [address] [place] [address] [address] [place] [address] * (ABNORMAL) APTT (Activated Partial Thromboplastin Time) (08/18/2023 6:42 AM CDT) Activated Partial Thrombopl Time, P 61(H) 25 - 37 sec 08/18/2023 7:28 AM CDT DTL Blood (Blood, Venous) 08/18/2023 6:42 AM CDT 08/18/2023 7:04 AM CDT Boubacar Brock M.D. LAB BLOOD ADD-ON Performing Organization Address City/[facility]/ZIP Co de Phone Number [facility] [place] [address] [place] [address] * (ABNORMAL) APTT (Activated Partial Thromboplastin Time) (08/17/2023 11:04 PM CDT) Activated Partial Thrombopl Time, P 40(H) 25 - 37 sec 08/17/2023 11:46 PM CDT DTL Blood (Blood, Venous) 08/17/2023 11:04 PM CDT 08/17/2023 11:31 PM CDT Boubacar Brock M.D. LAB BLOOD ADD-ON Performing Organization Address [facility] Co de Phone Number [facility] [place] [address] [place] [address] * US Lower Extremity Veins Bilateral (08/17/2023 [...] and management can be found on the Piazza[employer] site. Link [email or web address] Findings discussed with ??Tayler Greenwood, ?? ([id number]) on 08/17/2023 7:11 PM. Procedure Note Jj [...] thrombosis and management can be found on theAskAucteliaert site. [email or web address] Findings discussed with Tayler Greenwood MD ([id number]) on 08/17/2023 7:11 PM. IMPRESSION: 1. 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 2. No acute left-sided DVT. Corin Ring M.D. IMG US PROCEDURES * APTT (Activated Partial Thromboplastin Time) (08/17/2023 4:56 PM CDT) [facility] Activated Partial Thrombopl Time, P 29 25 - 37 sec 08/17/2023 5:10 PM CDT [facility] Blood (Blood, Venous) 08/17/2023 4:56 PM CDT 08/17/2023 5:00 PM CDT Paula Hernandez M.D. LAB BLOOD ADD-ON [facility] [place] [address] [place] [address], [facility] [address] [place] [address] * ECG 12 Lead (08/16/2023 9:43 PM CDT) [facility] Ventricular Rate ECG/Min 134 BPM MUSE MA Interval 136 ms MUSE QRSD Interval 76 ms MUSE QT Interval 298 ms MUSE QTC Interval 445 ms MUSE P [place] 29 degrees MUSE R [place] -6 degrees MUSE T Wave [place] 21 degrees MUSE 08/16/2023 9:43 PM CDT [...] Geneva Azar M.D. LAB BLOOD ADD-ON [facility] [place] [address] [place] [address], [place] DTL [facility] [address] [place] [address] * (ABNORMAL) Basic Metabolic Panel (08/16/2023 9:40 PM CDT) [facility] Potassium, S 3.9 3.6 - 5.2 mmol/L [...] CDT Geneva Azar M.D. LAB BLOOD ADD-ON [facility] [place] [employer] [facility] [address] [place] [address], [facility] DTL [facility] [address] [place] [address] * Transfuse Red Blood Cells : (08/16/2023 [...] M.D. LAB BLOOD ADD-ON Performing Organization Address City/[facility] Co de Phone Number [facility] [place] [address] [place] [address], [facility] [address] [place] [address] * (ABNORMAL) CBC without Differential (08/16/2023 3:10 [...] Paula Hernandez M.D. LAB BLOOD ADD-ON [facility] [place] [address] [place] [address], [facility] [address] [place] [address] * (ABNORMAL) CBC with Differential, Blood (08/15/2023 [...] Alberto Henson M.D. LAB BLOOD ADD-ON [facility] [place] [address] [place] [address], [facility] DTL [facility] [address] [place] [address] DHPM [facility] [address] [place] [address] * DX Abdomen 1 View (08/15/2023 1:19 [...] CDT 08/15/2023 12:03 PM CDT Rae Gonzalez OB/GYN DOCTOR, CTE TEACHER, DNAP LAB BLOO D NON ADD-ON [facility] [address] [place] [address], [facility] [address] [place] [address] * Lactate, B - Intra-op (08/15/2023 11:56 AM CDT) Lactate, B 1.1 0.5 - 2.2 mmol/L 08/15/2023 12:06 PM CDT STMA Blood (Blood, Venous) 08/15/2023 11:56 AM CDT 08/15/2023 12:03 PM CDT Hayde Song M.D. LAB BLOOD NON ADD-O N [facility] [place] [address] [place] [address], [facility] [address] [place] [address] * (ABNORMAL) Glucose, Whole Blood (08/15/2023 11:56 AM CDT) Glucose 144(H) 70 - 140 mg/dL 08/15/2023 12:06 PM CDT [facility] Blood (Blood, Arterial Line) 08/15/2023 11:56 AM CDT 08/15/2023 12:03 PM CDT Hayde Song M.D. LAB BLOOD ADD-ON Performing Organization Address City/[facility]/ZIP Co de Phone Number [facility] [place] [address] [place], [place] [address] [place] [address] [address] [place] [address] * Potassium, Blood (08/15/2023 11:56 AM CDT) Potassium, B 4.3 3.6 - 5.2 mmol/L 08/15/2023 12:07 PM CDT [facility]MA Blood (Blood, Arterial Line) 08/15/2023 11:56 AM CDT 08/15/2023 12:03 PM CDT Hayde Song M.D. LAB BLOOD NON ADD-O N [facility] [place] [address] [place], [place] [address] [place] [address] [address] [place] [address] * Sodium, B (08/15/2023 11:56 AM CDT) Sodium, B 135 135 - 145 mmol/L 08/15/2023 12:06 PM CDT STMA Blood (Blood, Arterial Line) 08/15/2023 11:56 AM CDT 08/15/2023 12:03 PM CDT Narrative Authorizing Provider Result Abdifatah Song M.D. LAB BLOOD NON ADD-O N [facility] [place] [address] [place] [address] * (ABNORMAL) Calcium, Ionized (08/15/2023 11:56 AM CDT) Calcium, Ionized, B 4.53(L) 4.65 - 5.30 mg/dL 08/15/2023 12:07 PM CDT STMA Blood (Blood, Arterial Line) 08/15/2023 11:56 AM CDT 08/15/2023 12:03 PM CDT Hayde Song M.D. LAB BLOOD NON ADD-O N [facility] [place] [address] [place] [address] * (ABNORMAL) Blood Gas with Coox, Arterial [...] BLOOD NON ADD-O N Performing Organization Address City/[facility]/ZIP Co de Phone Number [facility] [place] [address] [place] [address], [facility] STMA [facility] [address] [place] [address] * FL Fluoro Less Than 1 Hour (08/15/2023 11:22 AM CDT) Narrative 152 HOS LOS RST - 08/15/2023 11:24 AM CDT This exam does not require a radiologist review or interpretation. Please refer to the patient's medical record on this date for clinical details. Boubacar Brock M.D. IMG FLUOROSCOPY PROC EDURES Performing Organization Address City/[facility] Co de Phone Number 152 [facility] LOS RST * Patient Status (08/15/2023 10:28 AM CDT) Temperature 36.1 37.0 deg C 08/15/2023 10:28 AM CDT STMA FIO2 0.55 0.21=AIR 08/15/2023 10:28 AM CDT [facility] Blood 08/15/2023 10:2 8 AM CDT 08/15/2023 10:28 AM CDT Rae Gonzalez OB/GYN DOCTOR, CTE TEACHER, DNAP LAB BLOO D NON ADD-ON Performing Organization Address City/[facility]/ZIP Co de Phone Number [facility] [place] [address] [place] [address], [facility] [address] [place] [address] * Lactate, B - Intra-op (08/15/2023 10:28 AM CDT) Lactate, B 1.1 0.5 - 2.2 mmol/L 08/15/2023 10:30 AM CDT [facility] Blood (Blood, Venous) 08/15/2023 10:28 AM CDT 08/15/2023 10:28 AM CDT Hayde Song M.D. LAB BLOOD NON ADD-O N Performing Organization Address City/[facility] Co de Phone Number [facility] [place] [address] [place] [address], [facility] [address] [place] [address] * Glucose, Whole Blood (08/15/2023 10:28 AM CDT) Glucose 134 70 - 140 mg/dL 08/15/2023 10:30 AM CDT [facility] Blood (Blood, Arterial Line) 08/15/2023 10:28 AM CDT 08/15/2023 10:28 AM CDT Hayde Song M.D. LAB BLOOD ADD-ON [facility] [place] [address] [place] [address], [facility] [address] [place] [address] * Potassium, Blood (08/15/2023 10:28 AM CDT) Potassium, B 4.1 3.6 - 5.2 mmol/L 08/15/2023 10:31 AM CDT ST[facility] Blood (Blood, Arterial Line) 08/15/2023 10:28 AM CDT 08/15/2023 10:28 AM CDT Hayde Song M.D. LAB BLOOD NON ADD-O N Performing Organization Address City/[facility]/ZIP Co de Phone Number [facility] [place] [address] [place] [address] * Sodium, B (08/15/2023 10:28 AM CDT) Pathologist [facility] Sodium, B 135 135 - 145 mmol/L 08/15/2023 10:30 AM CDT [facility] Blood (Blood, Arterial Line) 08/15/2023 10:28 AM CDT 08/15/2023 10:28 AM CDT Hayde Song M.D. LAB BLOOD NON ADD-O N Performing Organization Address City/[facility] Co de Phone Number [facility] [place] [address] [place] [address] * (ABNORMAL) Calcium, Ionized (08/15/2023 10:28 AM CDT) [facility] Calcium, Ionized, B 4.25(L) 4.65 - 5.30 mg/dL 08/15/2023 10:31 AM CDT [facility] Blood (Blood, Arterial Line) 08/15/2023 10:28 AM CDT 08/15/2023 10:28 AM CDT Hayde Song M.D. LAB BLOOD NON ADD-O N Performing Organization Address City/[facility]/ZIP Co de Phone Number [facility] [place] [address] [place] [address] * (ABNORMAL) Blood Gas with Coox, Arterial [...] M.D. LAB BLOOD NON ADD-O N [facility] [place] [address] [place] [address], [facility] [address] [place] [address] * Bacteria / Yomaira Culture, Blood #2 (08/15/2023 3:33 AM CDT) Bacteria/Leyla da Culture, Blood No growth after 5 days of incubation. 08/20/2023 6:02 AM CDT DTL Blood (Blood, Peripheral Draw) 08/15/2023 3:33 AM CDT 08/15/2023 5:58 AM CDT Comment:Specimen Source Site : Blood Narrative [facility] [place] - 08/20/2023 6:02 AM CDT Received Bactec aerobic and Bactec anaerobic bottles Carlos Alberto Henson M.D. LAB MICROBIOLOGY - G ENERAL ORDERABLES [facility] [place] [employer] [facility] [facility] [address] [place] [address], [place] DTL [facility] [address] [place] [address] * (ABNORMAL) Basic Metabolic Panel (08/15/2023 3:31 AM CDT) [facility] Potassium, S 4.0 3.6 - 5.2 [...] De Paz M.D. LAB BLOOD ADD-ON [facility] [place] [address] [place] [address], [facility] [address] [place] [address] * Bacteria / Yomaira Culture, Blood #1 (08/15/2023 3:31 AM CDT) [facility] Bacteria/Leyla da Culture, Blood No growth after 5 days of incubation. 08/20/2023 6:02 AM CDT DTL Blood (Blood, Peripheral Draw) 08/15/2023 3:31 AM CDT 08/15/2023 5:59 AM CDT Comment:Specimen Source Site : Blood Carlos Alberto Henson M.D. LAB [facility]BIOLOGY - [facility] ORDERABLES Performing Organization Address [facility] Co de Phone Number [facility] [place] [address] [place] [address], [facility] [address] [place] [address] * (ABNORMAL) CBC with Differential, Blood (08/15/2023 3:30 AM CDT) [facility] Hemoglobin 9.5(L) 13.2 - 16.6 g/dL [...] Alberto Henson M.D. LAB BLOOD ADD-ON [facility] [place] [address] [place] [address], [facility] DTL [facility] [address] [place] [address] [place] [address] * (ABNORMAL) CBC with Differential, Blood (08/14/2023 [...] Alberto Henson M.D. LAB BLOOD ADD-ON [facility] [place] [address] [place] [address], [facility] STMA [facility] [address] [place] [address] DHPM [facility] [address] [place] [address] * Transfuse Red Blood Cells : , [...] Alberto Henson M.D. LAB BLOOD ADD-ON [facility] [place] [address] [place], [place] [address] STMA [facility] [address] [place] [address] [facility] [address] [place] [address] * (ABNORMAL) Basic Metabolic Panel (08/14/2023 3:18 [...] Alberto Henson M.D. LAB BLOOD ADD-ON [facility] [place] [address] [place] [address], [facility] DTL [facility] [address] [place] [address] * Type and Screen (with Reflex Antibody ID) (08/13/2023 7:35 PM CDT) Pathologist [facility] ABORh O Pos Not applicable 08/13/2023 7:58 PM CDT STRM Antibody Screen Negative Negative 08/13/2023 8:13 PM CDT STRM Type & Screen Expiration 08/16/2023 23:59 08/13/2023 7:58 PM CDT STRM Testing Location [facility] DEFAULT 08/13/2023 7:39 PM CDT STRM Blood (Blood, Venous) 08/13/2023 7:35 PM CDT 08/13/2023 7:39 PM CDT Carlos Alberto Henson M.D. LAB BLOOD BANK TEST ORDERABLES Performing Organization Address City/[facility]/ZIP Co de Phone Number [facility] [place] [address] [place] [address], [facility] [address] [place] [address] * (ABNORMAL) Bacteria / Yomaira Culture, Blood #1 (08/13/2023 7:35 PM CDT) [facility] Bacteria/Cand jessica Culture, Blood ESCHERICHIA COLI Growth after 11 Hours (A) 08/16/2023 11:17 AM CDT DTL Comment: 3 of 3 Bottles, Susceptibilities performed on another specimen [id number] Blood (Blood, Peripheral Draw) 08/13/2023 7:35 PM CDT 08/13/2023 8:15 PM CDT Comment:Specimen Source Site : Blood Carlos Alberto Henson M.D. LAB MICROBIOLOGY - G ENERAL ORDERABLES Performing Organization Address City/[facility]/ZIP Co de Phone Number [facility] [place] [address] [place] [address], [facility] [place] [address] * ECG 12 Lead (08/13/2023 7:02 PM CDT) Pathologist [facility] Ventricular Rate ECG/Min 128 BPM MUSE MA Interval 138 ms MUSE QRSD Interval 64 ms MUSE QT Interval 304 ms MUSE QTC Interval 443 ms MUSE P [place] 45 degrees MUSE R [place] 34 degrees MUSE T Wave [place] 46 degrees MUSE 08/13/2023 7:02 PM CDT [...] in the anterior abdominal wall. Procedure Note MoniKillian potter M.B.B.S., M.D. - 08/13/2023 EXAM: CT CYSTOGRAM [...] Comment:Specimen Source Site : Blood Narrative [facility] [place] - 08/16/2023 11:17 [...] - G ENERAL ORDERABLES Performing Organization Address City/[facility]/ZIP Co de Phone Number [facility] [place] [address] [place] [address], [facility] [address] [place] [address] * Magnesium (08/13/2023 5:27 PM CDT) Magnesium, S 1.9 1.7 - 2.3 mg/dL 08/13/2023 6:12 PM CDT DTL Blood (Blood, Venous) 08/13/2023 5:27 PM CDT 08/13/2023 5:58 PM CDT Carlos Alberto Henson M.D. LAB BLOOD ADD-ON [facility] [place] [address] [place] [address], [facility] [address] [place] [address] * (ABNORMAL) Hepatic Function Panel (08/13/2023 5:27 [...] Alberto Henson M.D. LAB BLOOD ADD-ON [facility] [place] [address] [place] [address], [facility] [address] [place] [address] * (ABNORMAL) Basic Metabolic Panel (08/13/2023 5:27 PM CDT) Pathologist [facility] Potassium, P 5.5(H) 3.6 - 5.2 mmol/L [...] Alberto Henson M.D. LAB BLOOD ADD-ON [facility] [place] [address] [place] [address], [facility] [address] [place] [address] * Prothrombin Time (PT) (08/13/2023 5:27 PM CDT) Pathologist [facility] Prothrombin Time, P 12.4 9.4 - 12.5 sec 08/13/2023 5:38 PM CDT ST[facility] INR 1.1 0.9 - 1.1 08/13/2023 5:38 PM CDT STMA Comment: ----ADDITIONAL INFORMATION---- Standard intensity warfarin therapeutic range: 2.0 to 3.0 ?? High intensity warfarin therapeutic range: 2.5 to 3.5 Blood (Blood, Venous) 08/13/2023 5:27 PM CDT 08/13/2023 5:31 PM CDT Carlos Alberto Henson M.D. LAB BLOOD ADD-ON [facility] [place] [address] [place] [address], [facility] STMA [facility] [address] [place] [address] * (ABNORMAL) CBC with Differential, Blood (08/13/2023 5:27 PM CDT) Pathologist [facility] Hemoglobin 10.0(L) 13.2 - 16.6 g/dL 08/13/2023 [...] M.D. LAB BLOOD ADD-ON Performing Organization Address City/[facility]/ZIP Co de Phone Number [facility] [place] [address] [place] [address], [facility] STMA [facility] [address] [place] [address] DHPM [facility] [address] [place] [address] * (ABNORMAL) Dipstick, Urine (08/13/2023 5:07 PM [...] Alberto Henson M.D. LAB URINE ORDERABLES [facility] [place] [address] [place] [address], [facility] DTL [facility] [address] [place] [address] * Osmolality, Urine (08/13/2023 5:07 PM CDT) Osmolality, U 351 150 - 1150 mOsm/kg 08/13/2023 7:46 PM CDT DTL Urine 08/13/2023 5:07 PM CDT 08/13/2023 5:45 PM CDT Carlos Alberto Henson M.D. LAB URINE ORDERABLES [facility] [place] [address] [place] [address], [facility] [address] [place] [address] * (ABNORMAL) Microscopic Manual (08/13/2023 5:07 PM [...] M.D. LAB URINE ORDERABLES Performing Organization Address City/[facility]/ZIP Co de Phone Number [facility] [place] [address] [place] [address], [facility] [address] [place] [address] * pH, Random, Urine (08/13/2023 5:07 PM CDT) pH, Random, U 7.0 4.5 - 8.0 08/13/2023 7:46 PM CDT DTL Urine 08/13/2023 5:07 PM CDT 08/13/2023 5:45 PM CDT Carlos Alberto Henson M.D. LAB URINE ORDERABLES [facility] [place] [address] [place] [address], [facility] [address] [address] * (ABNORMAL) Bacterial Culture, Aerobic + Susceptibility, [...] LAB MICROBIOLOGY - G ENERAL ORDERABLES [facility] [place] [address] [place] [address], [facility] DTL [facility] [address] [place] [address] * (ABNORMAL) Urinalysis, with Microscopic: Urine, Midstream [...] CDT DTL Predicted 24 [place] [address](H) <229 mg/24 h 08/13/2023 8:50 PM CDT DTL Predicted Range [id number] mg/24 h 08/13/2023 8:50 PM CDT DTL Comment Micro done on <2.5 mL 08/13/2023 7:55 PM CDT DTL Urine (Urine, Midstream) 08/13/2023 5:07 PM CDT 08/13/2023 5:44 PM CDT Carlos Alberto Henson M.D. LAB URINE ORDERABLES [facility] [place] [employer] [facility] [facility] [address] [place] [address], [place] DTL [facility] [address] [place] [address] * Interpretation of Outside CT Abdomen and [...] daily, First dose (after last modification) on 08/20/23 at 2100 Given 08/23/2023 9:21 AM CDT [...] use home supply. 08/17/23: Id'ed by [facility]. [facility] [id number], [place] 07/22/23. HAZARDOUS - Handle with care. Swallow whole. Do NOT crush, chew or open capsule. Given 08/26/2023 9:12 AM CDT 120 mg Given 08/25/2023 9:08 AM CDT 120 mg Given 08/24/2023 9:12 AM CDT 120 mg fat emulsion [id number] & fish oil infusion 50 g (SMOFlipid) [...] Lactated Ringer's 1.5 mL/kg/hr ? 75 kg [place] weight (112.5 mL/hr, rounded to 113 mL/hr), intravenous, Continuous, Starting on Tue08/22/23 at 1030, Conditional Phase Pre-Gastrografin Administration. (Rate = 1.5 mL/kg/hr ideal body weight) Lactated Ringer's 0.75 mL/kg/hr ? 75 kg [place] weight (56.25 mL/hr, rounded to 56.3 mL/hr), [...] tube, 2 times daily, First dose on 08/20/23 at 2100 Given 08/23/2023 9:21 AM CDT [...] 0019 (Not Given - Provider: Fatuma See RNarendra - Reason: Patient/family refused)0639 (Given - Provider: Fatuma See R.N.)1136 (Given - Provider: Tayler Forrest RNarendra)1750 (Not Given - Provider: Antonia Salazar RNarendra - Reason: Patient/family refused)2349 (Not Given - Provider: Edith Simental RJonahNJonah - Reason: Patient/family refused) 0624 (Given - Provider: Edith Simental RNarendra)1244 (Not Given - Provider: Lupe Valdez RNarendra [...] may use home supply. 08/17/23: [place] [facility] [id number], [place] 07/22/23. HAZARDOUS - Handle with care. Swallow whole. Do NOT crush, chew or open capsule. 09 (Given - Provider: Tayler Forrest R.N. - Comment: Pat Murray, -2nd RN) 09 (Given - Provider: Tayler Frorest R.N. - Comment: Pt 's own med from home) 911 (Given - Provider: Lupe Valdez R.N.) fat emulsion cef-gyk-akzqz & fish oil infusion 50 g (SMOFlipid) [...] Antonia Salazar R.N.) 0915 (Given - Provider: Zixi Valdez, R.N.) pantoprazole injection 40 mg (PROTONIX) 40 [...] See Provider Order)2100 (Not Given - Provider: Fatmua See R.N. - Reason: See Provider Order [...] 09 (Given - Provider: Tayler Forrest R.N.) 0915 (Given - Provider: Lupe Valdez R.N.) silodosin capsule 8 mg (RAPAFLO) 8 mg, oral, Daily, First dose (after last modification) on Tue08/24/23 at 0900, Do NOT crush or chew. Capsule may be opened and the contents taken without crushing or chewing. 0911 (Given - Provider: Tayler Forrest R.N.) 09 (Given - Provider: Tayler Forrest R.N.) 0915 [...] Howe R.N.)1520 (Given - Provider: Mary Rosado RNarendra) 0638 (Given - Provider: Fatuma See R.N.)1749 [...] Fatuma See R.N.)0719 (Handoff - Provider: Tayler Forrets R.N. - Comment: from Fatuma See RN)1542 [...] Lactated Ringer's 1.5 mL/kg/hr ? 75 kg [place] weight (112.5 mL/hr, rounded to 113 mL/hr), intravenous, Continuous, Starting on Tue08/22/23 at 1030, Conditional Phase Pre-Gastrografin Administration. (Rate = 1.5 mL/kg/hr ideal body weight) Lactated Ringer's 0.75 mL/kg/hr ? 75 kg [place] weight (56.25 mL/hr, rounded to 56.3 mL/hr), [...] 1547 documented in this encounter Care Teams Edging Machine Operator Relationship Specialty Start Date End Date Elsewhere, Pcp PCP - General Internal Medicine 08/13/23 documented as of this encounter
--- OUTSIDE RECORDS SUMMARY | 2023-10-21 08:16 | XMS_ITS | Encounter Summary ---
Author Organization [facility] Address [address] [place] [address] Care Team Providers Care Newspaper Illustrator Name Role Phone Elsewhere, Pcp Primary Care Provider Unavailabl e Encounter Details Date Type Department Care Team (Late st Contact Info) Description 08/23/2023 12:45 AM CDT Ancillary Procedure Department of Nursing Social History Tobacco Use Types Packs/Day Years Used Date Smoking Tobacco: Never Smokeless Tobacco: Never [facility] Utilities Answer Date Recorded In the past 12 months has e electric, gas, oil, or water [employer] threatened to shut off services in your [...] your living situation today? I have a [facility] place to live 08/13/2023 Sex and [...] on filedocumented in this encounter Care Teams Newspaper Illustrator Relationship Specialty Start Date End Date Elsewhere, Pcp PCP - General Internal Medicine 08/13/23 documented as of this encounter
--- OUTSIDE RECORDS SUMMARY | 2023-10-21 08:16 | XMS_ITS | Encounter Summary ---
Author Organization [facility] Address [address] [place] [address] Care Team Providers Care Order Processing Manager Name Role Phone Elsewhere, Pcp Primary Care Provider Unavailabl e Encounter Details Date Type Department Care Team (Late st Contact Info) Description 08/15/2023 8:30 AM CDT Anesthesia Event RST ROMB MAIN OR [address] [place] [id number] Hayde Song M.D. [address] [place] [address] Anesthesia Record Procedure Summary Procedure Name Responsible [...] R.N. 08/15/23 0909 by Rae Gonzalez APRN, P D DRIVER, DNAP Peripheral IV Placement Date: 08/02; [...] Date Smoking Tobacco: Never Smokeless Tobacco: Never [facility] Utilities Answer Date Recorded In the past 12 months has e [employer], gas, oil, or water [employer] threatened to shut off services in your [...] Procedure Summary Date: 08/15/23 Room / Location: [place] [address] / [facility] in [place], [place] Anesthesia Start: 829 Anesthesia Stop: 1317 [...] * Anesthesia Procedure Notes - Rae Gonzalez, ROUSTABOUT, GAVIN, DNAP - 08/15/2023 9:51 AM CDTAssociated [...] ETT location: oral VL device: glide scope Seth scope blade size: 4 Tube size: 7.5 [...] 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 Location: [place] [address] / [facility] in [place], [place] Providers: Boubacar Brock M.D. Pertinent components [...] patient / legal guardian, or through an property worker; patient evaluated and approved for anesthesia / [...] LINE INSERTION Routine 08/15/2023 9:51 AM CDT VA US GUIDE VASC ACCESS Routine 08/15/2023 9:51 AM CDT VA ARTL CATH/CNULA MONITOR PERC Routine 08/15/2023 9:51 AM CDT LDA ANE ENDOTRACHEAL AIRWAY Routine 08/15/2023 8:40 AM CDT documented in this encounter Results * VA ARTL CATH/CNULA MONITOR PERC, VA US GUIDE VASC ACCESS, LDA ANE ARTERIAL [...] ETT location: oral VL device: glide scope Seth scope blade size: 4 Tube size: 7.5 [...] mg documented in this encounter Care Teams Order Processing Manager Relationship Specialty Start Date End Date Elsewhere, Pcp PCP - General Internal Medicine 08/13/23 documented as of this encounter
--- OUTSIDE RECORDS SUMMARY | 2023-10-21 08:17 | XMS_ITS | Encounter Summary ---
Author Organization [facility] Address [address] [place] [address] Care Team Providers Care Design Editor Name Role Phone Elsewhere, Pcp Primary Care Provider Unavailabl e Encounter Details Date Type Department Care Team (Late st Contact Info) Description 08/15/2023 7:55 AM CDT - 08/15/2023 11:23 AM CDT Surgery [facility] MAIN OR [address] [place] [address] Boubacar Brock M.D. [address] [place] [phone] Palliative EXPLORATORY LAPAROTOMY, CYSTOTOMY CLOSURE, RIGHT URETERAL STENT EXCHANGE Social History Tobacco Use Types Packs/Day Years Used Date Smoking Tobacco: Never Smokeless Tobacco: Never [facility] Utilities Answer Date Recorded In [...] in this encounter Discharge Summaries * Paula Hernadnez M.D. - 08/26/2023 9:15 AM CDT DISCHARGE [...] Scheduled Appointments 08/26/2023 1:00 PM KESHIA VERAS [facility] Radiology For appointment details refer to [...] he felt completely obstructed and presented to [place] [facility]. [place] Course Attempted Tabares insertion but bladder irrigation was unsuccessful on multiple attempts. Hung 1U pRBC's. Given some volume and transferred to [facility] ICU ICU Course Urology consulted and [...] CONSULT TO NUTRITION SUPPORT IP CONSULT TO ROADS AND PARKING LOTS SWEEPER OPERATOR WOUND CARE CONDITION AT DISCHARGE stable Discharge [...] he felt completely obstructed and presented to [place] [facility]. [place] Course Attempted Tabares insertion but bladder irrigation was unsuccessful on multiple attempts. Hung 1U pRBC's. Given some volume and transferred to [facility] ICU ICU Course Urology consulted and [...] Care Everywhere. * Bacitracin (On the skin) (Mongolian) * Cefdinir (By mouth) (Mongolian) * Trospium (By mouth) (Mongolian) documented in this encounter Medications at Time [...] another provider. * Chary Diamond M.A., O.T., [facility] - 08/26/2023 10:21 AM CDT Occupational Therapy [facility] Inpatient Treatment SUBJECTIVE Patient's Name: Kalen Vega Referring/Attending Provider: Boubacar Brock M.D. Reason for Referral: Occupational Therapy Evaluation and Treatment History of Present Illness: Kalen Vega is a 83 y.o. male who was admitted to [facility] in [place] on 08/13/2023 for Hematuria [R31.9]. Precautions Other Precautions: Abdominal, fall precautions, monitor tachycardia and hypertension Pain Assessment: Pain not reported during session. Subjective Comments: Agreeable to therapy session. Team Communication: The patient's status was discussed and coordination of care occurred with RN, Family/Caregiver, nurse tech Family/Caregiver Present: son and [id number]-ix-[id number] OBJECTIVE Vital Signs: Vitals not formally assessed during session. No concerns during chart review and the patient had nosigns or symptoms consistent with vital changes during therapy session. Outcome Measures: [facility] Inpatient Short Form: Putting on and [...] at or below 17 Clinicians answer the [facility] Inpatient Short Form based on observed [...] through pant leg first. - Adaptive Equipment: Regional Hr Manager TOILETING - Assist Level: Maximal Assist - [...] (Edge of bed) - Assist Level: Modified [place] - Equipment: bed rail - Therapist Delivery: assessed, instructed, assisted - Adaptive Equipment: leg cyber incident handler trialed ; however, patient able to move [...] extremity (stiff knee) first. Recommended adaptive equipment: Regional Hr Manager. Toileting - Patient instructed on accurate positioning [...] maximal exertion Handouts provided: Bathroom Safety Equipment [id number], Techniques to Help You Save Energy [id number] Patient was left in bedside chair with [...] Usama 6C -room 121 ASSESSMENT / PLAN CARPET LAYERhousekeeping manager met with patient and son Kar to inform them of home health care acceptance for PT/OT. Patient's son Kar and [id number] will provide transportation at the time of discharge. PLAN Patient to discharge home with home health care. Home Medical Care - Admitted Since 08/13/2023 Service Provider Selected Services Address Phone Fax Patient Preferred [employer] [facility] [address] [facility] [phone] -- Instrumentation Technician: Ghazal NURSING: - Complete documentation in the Discharge Navigator including Nursing Report Info and Facility/NextLevel of Care Info - Call report and arrange for the patient's first visit - Send After Visit Summary and required packet of dismissal information with patient, including advance directive. PRIMARY SERVICE: - Please provide a non-[place] home health order for: physical therapy and [...] be provided by family--patient's son Kar and [id number]. 3. black studies professor recommended reaching out to family, friends, and neighbors for assistance. 4. black studies professor provided information regarding the dismissal process. Damaris [...] Reviewed with patient #1 Hematuria Please page [facility] ([phone]) or [facility] ([phone]) Nutrition Support Service pager with questions. * Emeterio Buchanan P.T., D.P.T., [facility] - 08/25/2023 9:35 AM CDT Physical Therapy Inpatient Treatment SUBJECTIVE Patient's Name: Kalen Vega Referring/Attending Provider: Boubacar Brock M.D. Reason for Referral: Physical Therapy Evaluate and Treat History of Present Illness: Kalen Vega is a 83 y.o. male who was admitted to [facility] in [place] on 08/13/2023 for Hematuria [R31.9] Precautions Other [...] throughout session; within normal ranges. Outcome Measures: [facility] Inpatient Short Form: [facility] Basic Mobility (V.2) How much [...] 3-5 steps with a railing?: A Little [facility] Basic Mobility (V.2) Raw Score: 18 [facility] Basic Mobility (V.2) Standardized Score: 41.05 Interpretation: Based on scoring guidelines using the raw score value: Those going to home had an average score at or above 18 Those going to facility had an average score at or below 17 Clinicians answer the -[facility] Inpatient Short Form based on [...] 83 y.o. male who was admitted to [facility] in [place] on 08/13/2023 for Hematuria [R31.9]. Precautions Other Precautions: Abdominal, fall precautions, monitor tachycardia and hypertension Pain Assessment: Pain not reported during session. Subjective Comments: Agreeable to therapy session. Team Communication: The patient's status was discussed and coordination of care occurred with RN, PT OBJECTIVE Vital Signs: Vitals monitored throughout session; within normal ranges. Outcome Measures: [facility] Inpatient Short Form: Putting on and [...] at or below 17 Clinicians answer the [facility] Inpatient Short Form based on observed [...] including figure four technique. Recommended adaptive equipment: Regional Hr Manager and Sock Aid. Toileting - Patient instructed [...] and modification tools as needed including leg cyber incident handler and/or bed adjustments. Bathroom DME: - Educated [...] in place draining clear yellow urine I/O ([id number]): Fifty-five cc serosanguineous from the drain 1 [...] have him follow up with his local linking machine operator Comorbidities: --history of DVT status post IVC [...] discussed with Dr. Venegas, chief urology resident director of parks and recreation. Pager during business hours: [phone] Pager after hours: [phone] * Emeterio Buchanan P.T., D.P.T., [facility] - 08/24/2023 10:46 AM CDT Physical Therapy Inpatient Treatment SUBJECTIVE Patient's Name: Kalen Vega Referring/Attending Provider: Boubacar Brock M.D. Reason for Referral: Physical Therapy Evaluate and Treat History of Present Illness: Kalen Vega is a 83 y.o. male who was admitted to [facility] in [place] on 08/13/2023 for Hematuria [R31.9] Precautions Other [...] %, and O2flow: Room air Outcome Measures: [facility] Inpatient Short Form: -[facility] Basic Mobility (V.2) How much [...] 3-5 steps with a railing?: A Lot -[facility] Basic Mobility (V.2) Raw Score: 17 -[facility] Basic Mobility (V.2) Standardized Score: 39.67 Interpretation: Based on scoring guidelines using the raw score value: Those going to home had an average score at or above 18 Those going to facility had an average score at or below 17 Clinicians answer the [facility] Inpatient Short Form based on observed [...] baseline. PT Goal #2: Patient will perform mxg-om-qabzl transfer with modified independence and least restrictive [...] Total Kcal/day: 1370 based on 84 % Garcia-Cash Non-standard additives: K 80 mEq Phos 30 [...] magnesium, phosphorus tomorrow. #1 Hematuria Please page [facility] ([phone]) or [facility] ([phone]) Nutrition Support Service pager with questions. * [...] catheter in place draining light smith I/O ([id number]): Forty-two cc serosanguineous from the drain 2.2 [...] 2.5 mg BID eliquis initiated 08/15 per [facility] med curbside recs --transition from eliquis [...] have him follow up with his local linking machine operator Comorbidities: --history of DVT status post IVC [...] discussed with Dr. Venegas, chief urology resident director of parks and recreation. Pager during business hours: [phone] Pager after hours: [phone] * Deanne Mike L.G.S.W., M.S.W. - 08/23/2023 11:25 AM CDT SUBJECTIVE Social Work spoke with [facility]. They cannot provide intermediate at this time. [...] anticipated discharge date of 08/24/23-08/26/23. Referrals sent: [facility] [place] [facility] (out of service area) [facility] ASSESSMENT / PLAN ASSESSMENT Patient has robust family support including a son living with him. PLAN Patient desires home health care through [facility]. Social Work will continue to follow to provide support. Social Work will continue to assist with discharge needs. Shorty Sun, M.S.W. 08/23/23 * Jazmine Benítez, RRitesh., C.W.C.N. - 08/23/2023 11:10 AM CDT [facility] Wound RN consulted to assess Kalen [...] stent and hematuria who is transferred from [place] ED with 3 days of hematuria and [...] None Unable to Measure Y *Wound Bed Closed;[place];Red Tissue Exposed None Odor None *Exudate Amount [...] 30 minutes > 30 minutes Ongoing management Nursing;Wound/clinical laboratory science professor Partial head to toe skin assessment completed [...] nursing. They agree to the plan. The [facility] RN will sign-off. Please place a wound care consult for any new concerns. Electronically signed by: Jzamine Benítez R.N., [place] 08/23/23 11:10 AM CDT * Emeterio Buchanan P.T., D.P.T., [facility] - 08/23/2023 11:02 AM CDT Physical Therapy Inpatient Treatment SUBJECTIVE Patient's Name: Kalen Vega Referring/Attending Provider: Boubacar Brock M.D. Reason for Referral: Physical Therapy Evaluate and Treat History of Present Illness: Kalen Vega is a 83 y.o. male who was admitted to [facility] in [place] on 08/13/2023 for Hematuria [R31.9] Precautions Other [...] 3-5 steps with a railing?: A Lot -[facility] Basic Mobility (V.2) Raw Score: 17 [facility] Basic Mobility (V.2) Standardized Score: 39.67 Interpretation: Based on scoring guidelines using the raw score value: Those going to home had an average score at or above 18 Those going to facility had an average score at or below 17 Clinicians answer the [facility] Inpatient Short Form based on observed [...] baseline. PT Goal #2: Patient will perform vvf-eh-rsory transfer with modified independence and least restrictive [...] D.P.T., GCS * Demarco Salazar Pharm.D., R.Ph., [facility] - 08/23/2023 10:19 AM CDT Pharmacist [...] Total Kcal/day: 1370 based on 84 % Garcia-Cash Non-standard additives: MAX chloride Thiamine 100 mg [...] magnesium, phosphorus tomorrow. #1 Hematuria Please page [facility] ([phone]) or [facility] ([phone]) Nutrition Support Service pager with questions. * Ivy Hernandez O.T. - 08/23/2023 8:30 AM CDT Occupational Therapy [facility]patient Treatment SUBJECTIVE Patient's Name: Kalen Vega Referring/Attending Provider: Boubacar Brock M.D. Reason for Referral: Occupational Therapy Evaluation and Treatment History of Present Illness: Kalen Vega is a 83 y.o. male who was admitted to [facility] in [place] on 08/13/2023 for Hematuria [R31.9]. Precautions Other Precautions: Abdominal, fall precautions, monitor tachycardia and hypertension Pain Assessment: Pain not reported during session. Subjective Comments: Agreeable to therapy session. Team Communication: The patient's status was discussed and coordination of care occurred with RN, PT OBJECTIVE Vital Signs: Vitals monitored throughout session; within normal ranges. Outcome Measures: [facility] Inpatient Short Form: Putting on and [...] at or below 17 Clinicians answer the [facility] Inpatient Short Form based on observed [...] catheter in place draining clear yellow I/O ([id number]): 73 cc serosanguineous from the drain Seven [...] 2.5 mg BID eliquis initiated 08/15 per [facility] med curbside recs --transition from eliquis [...] have him follow up with his local linking machine operator Comorbidities: --history of DVT status post IVC filter, home Xarelto (holding since 08/11) -CAD status post cardiac stents (Plavix held since 08/11) -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 [facility] Summary: Diet: NPO, TPN Activity: Ad [...] discussed with Dr. Venegas, chief urology resident director of parks and recreation. Pager during business hours: [phone] Pager after hours: [phone] * Chary Diamond M.A., O.T., BCP - [...] [facility] Social Work sent referral. OBJECTIVE Patient is anticipated to remain at [place] for 3-5 days. Referrals sent: [facility] ASSESSMENT / PLAN ASSESSMENT Patient has robust family support including a son living with him. PLAN Patient desires home health care through [facility]. Social Work will continue to [...] 83 y.o. male who was admitted to [facility] in [place] on 08/13/2023 for Hematuria [R31.9] Precautions Other [...] 3-5 steps with a railing?: A Lot [facility] Basic Mobility (V.2) Raw Score: 17 -[facility] Basic Mobility (V.2) Standardized Score: 39.67 Interpretation: Based on scoring guidelines using the raw score value: Those going to home had an average score at or above 18 Those going to facility had an average score at or below 17 Clinicians answer the -[facility] Inpatient Short Form based on [...] baseline. PT Goal #2: Patient will perform ajw-nn-vsuun transfer with modified independence and least restrictive [...] Total Kcal/day: 1370 based on 84 % Garcia-Cash Non-standard additives: MAX chloride Thiamine 100 mg [...] place draining light smith colored urine I/O ([id number]): CBI on slow drip 75 cc serosanguineous [...] 2.5 mg BID eliquis initiated 08/15 per [facility] med curbside recs --transition from eliquis [...] have him follow up with his local linking machine operator Comorbidities: --history of DVT status post IVC [...] discussed with Dr. Venegas, chief urology resident director of parks and recreation. Pager during business hours: [phone] Pager after hours: [phone] * Qamar Jim, Pharm.D., R.Ph. - 08/21/2023 [...] place draining clear smith colored urine I/O ([id number]): 1800 cc urine output 75 cc serosanguineous [...] have him follow up with his local linking machine operator Comorbidities: --history of DVT status post IVC [...] discussed with Dr. Venegas, chief urology resident director of parks and recreation. Pager during business hours: [phone] Pager after hours: [phone] * Lizette Harvey M.D. - 08/20/2023 8:08 [...] draining clear thin merlot colored urine I/O ([id number]): 240 cc p.o. intake 760 cc urine [...] 2.5 mg BID eliquis initiated 08/15 per [facility] med curbside recs --transition from eliquis [...] have him follow up with his local linking machine operator Comorbidities: --history of DVT status post IVC [...] questions or concerns. Pager during business hours: [phone] Pager after hours: [phone] * Qamar Jim, PharmJonahD., R.Ph. - 08/20/2023 [...] Jim, PharmPerla., R.Ph. * Lisa Seaman, O.T., [facility] - 08/19/2023 2:26 PM CDT Occupational Therapy [facility] Inpatient Treatment SUBJECTIVE Patient's Name: Kalen Vega Referring/Attending Provider: Boubacar Brock M.D. Reason for Referral: Occupational Therapy Evaluation and Treatment History of Present Illness: Kalen Vega is a 83 y.o. male who was admitted to [facility] in [place] on 08/13/2023 for Hematuria [R31.9]. Precautions Other Precautions: Abdominal, fall precautions, monitor tachycardia and hypertension Pain Assessment: Pain not reported during session. Subjective Comments: Patient greeted in chair and agreeable to therapy session. Team Communication: The patient's status was discussed and coordination of care occurred with RN OBJECTIVE Vital Signs: Vitals monitored throughout session; within normal ranges. Outcome Measures: [facility] Inpatient Short Form: Putting on and [...] at or below 17 Clinicians answer the [facility] Inpatient Short Form based on observed [...] about patient's nutritional care please contact pager [phone] on weekdays or [phone] on weekends/holidays. NUTRITION ASSESSMENT: Mr. Vega is [...] care everywhere) ESTIMATED NEEDS: Total Calorie Needs: 4606-7552 calories/day Method to Estimate Energy Needs: kcal/kg [...] 83 y.o. male who was admitted to [facility] in [place] on 08/13/2023 for Hematuria [R31.9] Precautions Other [...] mmHg O2: 96% Room air Outcome Measures: [facility] Inpatient Short Form: -[facility] Basic Mobility (V.2) How much [...] 3-5 steps with a railing?: A Little -[facility] Basic Mobility (V.2) Raw Score: 18 -[facility] Basic Mobility (V.2) Standardized Score: 41.05 Interpretation: Based on scoring guidelines using the raw score value: Those going to home had an average score at or above 18 Those going to facility had an average score at or below 17 Clinicians answer the [facility] Inpatient Short Form based on observed [...] Ongoing PT Goal #2: Patient will perform kpx-qd-jxdjx transfer with modified independence and least restrictive [...] in place draining clear pink urine I/O ([id number]): 370 p.o. intake 1 L urine output [...] 2.5 mg BID eliquis initiated 08/15 per [facility] med curbside recs --transition from eliquis [...] have him follow up with his local linking machine operator Comorbidities: --history of DVT status post IVC [...] questions or concerns. Pager during business hours: [phone] Pager after hours: [phone] * Lisa Seaman, O.TJonah, [facility] - 08/18/2023 11:15 AM CDT Occupational Therapy [facility] Inpatient Treatment SUBJECTIVE Patient's Name: Kalen Vega Referring/Attending Provider: Boubacar Brock M.D. Reason for Referral: Occupational Therapy Evaluation and Treatment History of Present Illness: Kalen Vega is a 83 y.o. male who was admitted to [facility] in [place] on 08/13/2023 for Hematuria [R31.9]. Precautions Other [...] pressure: 168/97 - nurse notified Outcome Measures: [facility] Inpatient Short Form: Putting on and [...] at or below 17 Clinicians answer the [facility] Inpatient Short Form based on observed [...] doffing over it last. Recommended adaptive equipment: Regional Hr Manager and Sock Aid. Patient was left in bedside chair, with nursing/BATTERY INSPECTOR at end of session with call light [...] 83 y.o. male who was admitted to [facility] in [place] on 08/13/2023 for Hematuria [R31.9] Precautions Other [...] vital signs with primary service. Outcome Measures: [facility] Inpatient Short Form: AM-[facility] Basic [...] at or below 17 Clinicians answer the [facility] Inpatient Short Form based on observed [...] following coordination of care occurred with the black top roller/Caregiver Present: No Patient was left in bedside [...] Progressing PT Goal #2: Patient will perform awx-cw-ttcdh transfer with modified independence and least restrictive [...] in place draining clear pink urine I/O ([id number]): 1.2 L p.o. intake 1 L urine [...] 2.5 mg BID eliquis initiated 08/15 per [facility] med curbside recs --transition from eliquis [...] diet later today follow up vascular medicine [facility] Summary: Diet: currently limited clears Activity: Ad kong DVT PPX: heparin drip GI PPX: Pantoprazole Bowel Regimen:N/A IVF: none Abx/Microbiology: Ceftriaxone Pain Control: Tylenol, oxycodone 08/18. Scheduled trospium Home Meds Resumed: Metoprolol, tamsulosin, rosuvastatin Held Home Meds: None Consults: None Paula Hernandez M.D. 08/18/2023 6:02 AM CDT Please page the Urology Chief Service with questions or concerns. Pager during business hours: [phone] Pager after hours: [phone] * Tayler Greenwood M.D., M.Ed. - 08/17/2023 [...] the patient follow up with his primary linking machine operator at discharge we will which we will [...] Ringer's Lactated Ringer's * Lisa Seaman O.T., [facility] - 08/17/2023 10:47 AM CDT Occupational Therapy [facility] Inpatient Treatment SUBJECTIVE Patient's Name: Kalen Vega Referring/Attending Provider: Boubacar Brock M.D. Reason for Referral: Occupational Therapy Evaluation and Treatment History of Present Illness: Kalen Vega is a 83 y.o. male who was admitted to [facility] in [place] on 08/13/2023 for Hematuria [R31.9]. Precautions Other [...] at or below 17 Clinicians answer the AM[facility] Inpatient Short Form based on [...] in place draining clear pink urine I/O ([id number]): NG tube 200 cc Two hundred sixty-five [...] held since 08/11) -[facility] regarding ongoing anticoagulation/antiplatelet. Theyfelt he no [...] questions or concerns. Pager during business hours: [phone] Pager after hours: [phone] * Audi De Luna P.T., D.P.T. - [...] in place draining clear pink urine I/O ([id number]): NG tube 200 cc Two hundred sixty-five [...] questions or concerns. Pager during business hours: [phone] Pager after hours: [phone] * Paula Hernandez M.D. - 08/15/2023 9:09 AM CDT PROGRESS NOTE: No events. AFVSS. Pain controlled. No flatus. No further emesis overnight. Abdomen more distended than yesterday but remained soft, tender to deep palpation only, no rebound. Twenty-four [place] three-way catheter remains off CBI, draining [...] above was discussed with Dr. Brock, urology leasing consultant on-call who is in agreement with [...] Family to bring his home enzalutamide from [place] Irvin Franco Pharm.D., R.Ph. * Jakob De Paz M.D. - 08/14/2023 11:34 AM CDT PROGRESS NOTE: No events. AFVSS. Pain controlled. No flatus. Nauseous and had 2 episodes of emesis. Abdomen more distended than yesterday but remained soft, tender to deep palpation only, no rebound. Twenty-four [place] Alcock three-way catheter remains off CBI, draining [...] above was discussed with Dr. Brock, urology leasing consultant on-call who is in agreement with [...] Patient discussed with Dr. Sylvester. Page CCM3 [id number] Carlos Alberto Henson M.D. PGY-1 CCM 3 [...] who have asked we place a 24 [place] 3-way urinary catheter pending evaluation. We will [...] stent and hematuria who is transferred from [facility] ED with 3 days of hematuria and [...] him to present to local hospital in [place]. OSH Course: His hemoglobin was in the [...] Insecurity: No Food Insecurity (02/16/2022) [facility] from [facility], [facility] Food Insecurity Worried About Running Out of Food in the Last Year: 1 Transportation Needs: No Transportation Needs (02/16/2022) Received from [facility], [facility] Transportation Needs Lack of Transportation (Medical): 1 Housing Stability: Low Risk (02/16/2022) Received from [facility], [facility] Housing Stability Unable to Pay [...] Dr. Sylvester and Dr. Rodriguez. Page CCM3 [id number] Carlos Alberto Henson M.D. PGY-1 CCM 3 [...] As expected PRIMARY PROCEDURALIST FAY Cerna MD [phone] ASSISTANTS none COMPLICATIONS None. DRAINS None. IMPLANTS [...] peripheral vein targets. Ultrasound used for assessment: [employer] Fit Provider contacted (include name): Uro Surg [...] 14 -- AST U/L 25 -- Radiology: @[id number]@ Swallow Assessment: No data to display ASSESSMENT / PLAN #1 Hematuria ASSESSMENT Currently we are asked to visit with Mr. Vega for consideration of parenteral nutrition. Nutrition Needs: Height: 180 cm Admission Weight: 91.2 kg (08/13/2023) Current Weight: 90.2 kg BMI (Calculated): 27.8 kg/m?? Total Calorie Needs: 1829-9535 calories/day Method to Estimate Energy Needs: Garcia-Cash ( ) Weight Used for Equation Calculations: [...] on electrolytes Please call NSS pager at [phone] at [facility] or [phone] at [facility] with any additional questions. * Gilbert [...] values in this interval not displayed. Radiology: @[id number]@ Swallow Assessment: No data to display ASSESSMENT / PLAN #1 Hematuria ASSESSMENT Currently we are asked to visit with Mr. Vega for consideration of parenteral nutrition. Nutrition Needs: Height: 180 cm Admission Weight: 91.2 kg (08/13/2023) Current Weight: 90.2 kg BMI (Calculated): 27.8 kg/m?? Total Calorie Needs: 3742-4984 calories/day Method to Estimate Energy Needs: kcal/kg [...] on electrolytes Please call NSS pager at [phone] at [facility] or [phone] at [facility] with any additional questions. BILLING/CODING Total [...] stent along with other stents and apparently linking machine operator in the past I recommended indefinite dual [...] documented in the history of present illness. @[facility] / nhrmcx@ OBJECTIVE Current Facility-Administered Medications: acetaminophen tablet 650 [...] 20 mL/hr, intravenous, Continuous, Frieda Garner APRN, DIRECTOR BIOLOGICS, Last Rate: 20 mL/hr at 08/15/23 1459, [...] but he can discuss this with his linking machine operator at home. We need to balance transfusion needs for continued bleedingand risk of recurrent OK if not on Plavix-coronary stents were 6 [...] 83 y.o. male who was admitted to [facility] in [place] on 08/13/2023 for Hematuria [R31.9]. Relevant Medical History: Kalen Vega is a 83 y.o. 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 Pain Assessment: Pain not reported during [...] 3-5 steps with a railing?: A Lot -[facility] Basic Mobility (V.2) Raw Score: 17 -[facility] Basic Mobility (V.2) Standardized Score: 39.67 Interpretation: Based on scoring guidelines using the raw score value: Those going to home had an average score at or above 18 Those going to facility had an average score at or below 17 Clinicians answer the [facility] Inpatient Short Form based on observed [...] following coordination of care occurred with the black top roller/Caregiver Present: SonFavio Patient was left in bedside [...] 83 y.o. male who was admitted to [facility] in [place] on 08/13/2023 for Hematuria with cystotomy and [...] Min assist for mobility. Required assist for [id number] for force generation and is generally standby [...] Ongoing PT Goal #2: Patient will perform [id number]-[id number] transfer with modified independence and least restrictive [...] - 08/16/2023 10:01 AM CDT Occupational Therapy [facility] Inpatient Evaluation/Treatment SUBJECTIVE Patient's Name: Kalen Vega Referring/Attending Provider: Boubacar Brock M.D. Reason for Referral: Occupational Therapy Evaluation and Treatment PERTINENT MEDICAL / SURGICAL HISTORY: Kalen Vega has no past medical history on file. Kalen Vega has no past surgical history on file. History of Present Illness: Kalen Vega is a 83 y.o. male who was admitted to [facility] in [place] on 08/13/2023 for Hematuria [R31.9]. Relevant Medical [...] with RN, PT Family/Caregiver Present: Son and [id number]. Home Living and Equipment: Lives with: Spouse/Significant [...] walker, Single point cane Adaptive Equipment Owned: Regional Hr Manager, Long Handled Shoe Horn Other DME Owned: Regular flat bed Prior Level of Function and Mobility: Basic Activities of Daily Living: Independent Instrumental Activities of Daily Living: Required Assistance: Laundry son assists with laundry and cooking Functional Mobility: Independent Driving: Yes Occupational Role: Retired Leisure Interests: watch movies, plays [employer] train, meets friends for breakfast. Patient/Caregiver Goals: [...] Wears glasses all the time Outcome Measures: [facility] Inpatient Short Form: Putting on and [...] at or below 17 Clinicians answer the [facility] Inpatient Short Form based on observed [...] all are a great support. 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 Patient expressed understanding and was agreeable [...] conversation with his family when social worker assistant entered the room. He was engaged [...] locally at approximately 3:00 a.m. a 22 [place]orese three-way catheter was placed and CBI wasinitiated. Unfortunately he clotted off the catheter multiple times despite manual irrigations, started to develop hypotension and tachycardia [facility] He relays the [...] non-distended, non-peritonitic Extremities: No edema : 22 [place] three-way Tabares catheter draining a minimal amount [...] urinary retention Given his non draining 22 [place] three-way catheter the Urology techs and I subsequently exchanged this for a 24 [place] three-way Alcock in the usual sterile fashion. [...] to follow [place] [phone] with questions or concerns Sixto Cain M.D. documented in this encounter Nursing Notes * uLpe Valdez R.N. - 08/26/2023 2:39 PM CDT [...] peripheral vein targets. Ultrasound used for assessment: [employer] Fit Provider contacted (include name): Uro Surg [...] Patient transferred to: [facility] Room: [facility] Accompanied by: JAMEL Garcia Report called? [...] signs? YES * Sixto Teague R.R.T., L.R.T., EMPLOYEE RELATIONS ASSISTANT-[facility] - 08/14/2023 7:00 AM CDT [...] the last 24hours. Sixto Teague R.R.T., L.R.T., EMPLOYEE RELATIONS ASSISTANT-[facility] 08/14/23 7:00 AM CDT Electronically signed by Sixto Teague R.R.T., L.R.T., EMPLOYEE RELATIONS ASSISTANT-[facility] at 08/14/2023 7:02 AM CDT [...] Bladder Spontaneous Post-op Diagnosis Rupture Bladder Spontaneous Reprint Sorter A purchasing assistant actively participated and was necessary for [...] the supine flexed position. His existing 24 [place] three-way Tabares catheter was noted to be [...] additional tissue for additional coverage. A 24 [place] three-way catheter was placed with 15 cc in the balloon. This irrigated to light clear pink. A 15 [place] YARELI drain wasplaced into the pelvis exiting left lower quadrant. The fascia was closed with interrupted and vknqen-ki-[id number] 0 PDS. Fat was approximated using 3-0 [...] RN, CPN, CCDS, CCS, CRC Clinical Documentation [facility] Care [facility] Administrator Query created by: ELMER Barker, RN, CPN, [...] stent and hematuria who is transferred from [place] ED with 3 days of hematuria & [...] RN, CPN, CCDS, CCS, CRC Clinical Documentation Child Care Center Administrator Query created by: ELMER Barker, RN, CPN, [...] he felt completely obstructed and presented to [place] ED. [place] Course Attempted Tabares insertion but bladder irrigation was unsuccessful on multiple attempts. Hung 1U pRBC's. Given some volume and transferred to [facility] ICU ICU Course Urology consulted and [...] ID) (08/26/2023 6:50 AM CDT) Pathologist [facility] ABORh O Pos Not applicable 08/26/2023 7:16 AM CDT STRM Antibody Screen Negative Negative 08/26/2023 7:29 AM CDT STRM Type & Screen Expiration 08/29/2023 23:59 08/26/2023 7:16 AM CDT STRM Testing Location [place] DEFAULT 08/26/2023 6:57 AM CDT STRM Blood (Blood, Venous) 08/26/2023 6:50 AM CDT 08/26/2023 6:57 AM CDT Narrative Authorizing Provider Result Abdifatah Hernandez M.D. LAB BLOOD BANK TEST ORDERABLES [facility] [address] [place] [address], [facility] [address] [place] [address] * (ABNORMAL) CBC without Differential (08/26/2023 3:20 AM CDT) Pathologist [facility] Hemoglobin 7.4(L) 13.2 - 16.6 g/dL 08/26/2023 [...] [facility] [place]/ZIP Co de Phone Number [facility] [address] [facility] [address] [place] [address] * Magnesium (08/26/2023 3:20 AM CDT) Magnesium, S 2.1 1.7 - 2.3 mg/dL 08/26/2023 4:04 AM CDT DTL Blood (Blood, Venous) 08/26/2023 3:20 AM CDT 08/26/2023 3:50 AM CDT Boubacar Brock M.D. LAB BLOOD ADD-ON [facility] [address] [place] [address] * (ABNORMAL) Renal Function Panel (08/26/2023 3:20 [...] CDT Boubacar Brock M.D. LAB BLOOD ADD-ON [facility] - [facility] [address] [place] [address], [facility] [address] [place] [address] * Heparin Anti-Xa Assay (08/26/2023 3:20 AM [...] Hoyt M.D. LAB BLOOD NON ADD -ON [address] [address], [place] [address] * (ABNORMAL) CBC without Differential (08/25/2023 3:24 AM CDT) [facility] Hemoglobin 8.3(L) 13.2 - 16.6 g/dL 08/25/2023 [...] CDT Corin Ring M.D. LAB BLOOD ADD-ON [facility] [address] [place] [address], [place] DTL [facility] [address] [place] [address] * (ABNORMAL) Renal Function Panel (08/25/2023 3:24 AM CDT) Pathologist [facility] Potassium, S 4.1 3.6 - 5.2 mmol/L [...] [facility] [place]/ZIP Co de Phone Number [facility] [address] [place] [address] * Magnesium (08/25/2023 3:24 AM CDT) Pathologist [facility] Magnesium, S 2.2 1.7 - 2.3 mg/dL 08/25/2023 4:36 AM CDT DT Blood (Blood, Venous) 08/25/2023 3:24 AM CDT 08/25/2023 4:19 AM CDT Boubacar Brock M.D. LAB BLOOD ADD-ON Performing Organization Address [facility] de Phone Number [facility] [address] [place] [address] * Heparin Anti-Xa Assay (08/25/2023 3:24 AM CDT) [facility] Heparin Anti-Xa, P 0.31 IU/mL 2023 4:09 AM CDT [facility] Comment: UFH therapeutic range: ?? 0.30-0.70 IU/mL [...] LAB BLOOD NON ADD-ON Performing Organization Address City/[facility]/ZIP Co de Phone Number [facility] [address] [place], [place] [id number] [place] [address] 200 [place] [address] * (ABNORMAL) CBC without Differential (08/24/2023 5:28 [...] CDT Corin Ring M.D. LAB BLOOD ADD-ON [facility] [address] [place], [place] [address] 200 [place] [address] * Magnesium (08/24/2023 5:28 AM CDT) Magnesium, S 2.3 1.7 - 2.3 mg/dL 08/24/2023 6:19 AM CDT DTL Blood (Blood, Venous) 08/24/2023 5:28 AM CDT 08/24/2023 6:00 AM CDT Boubacar Brock M.D. LAB BLOOD ADD-ON [facility] [address] [place] [address], [facility] DTL [facility] [address] [place] [address] * (ABNORMAL) Renal Function Panel (08/24/2023 5:28 AM CDT) Pathologist [facility] Potassium, S 3.6 3.6 - 5.2 mmol/L [...] CDT Boubacar Brock M.D. LAB BLOOD ADD-ON [facility] [address] [place], [place] [address] [place] [address] 200 [place] [address] * Heparin Anti-Xa Assay (08/24/2023 5:28 AM [...] Boubacar Brock M.D. LAB BLOOD NON ADD-ON [facility] [address] [place], [place] [address] 200 [place] [address] * (ABNORMAL) Potassium (08/23/2023 9:58 PM CDT) Potassium, S 3.5(L) 3.6 - 5.2 mmol/L 08/23/2023 10:45 PM CDT DT Blood (Blood, Venous) 08/23/2023 9:58 PM CDT 08/23/2023 10:30 PM CDT Boubacar Brock M.D. LAB BLOOD ADD-ON [facility] [address] [place] [address] * (ABNORMAL) Phosphorus Inorganic (08/23/2023 9:58 PM CDT) Pathologist [facility] Phosphorus (Inorganic), S 2.1(L) 2.5 - 4.5 mg/dL 08/23/2023 10:45 PM CDT DT Blood (Blood, Venous) 08/23/2023 9:58 PM CDT 08/23/2023 10:30 PM CDT Paula Hernandez M.D. LAB BLOOD ADD-ON Performing Organization Address City/[facility]/ZIP Co de Phone Number [facility] [address] [place] [address] * Heparin Anti-Xa Assay (08/23/2023 11:37 AM CDT) [facility] Heparin Anti-Xa, P 0.51 IU/mL 2023 12:42 [...] Boubacar Brock M.D. LAB BLOOD NON ADD-ON [facility] [address] [place], [place] [id number] [place] [address] [facility] [address] [place] [address] * (ABNORMAL) CBC without Differential (08/23/2023 3:42 AM CDT) Pathologist [facility] Hemoglobin 8.3(L) 13.2 - 16.6 g/dL 08/23/2023 [...] CDT Corin Ring M.D. LAB BLOOD ADD-ON [facility] [address] [place], [place] [address] [address] [place] [address] * Triglycerides (08/23/2023 3:42 AM CDT) Pathologist [facility] Triglycerides 106 mg/dL 08/23/2023 4:50 AM CDT DTL Comment: ----REFERENCE VALUE---- Normal: <150 mg/dL Borderline High: 150-199 mg/dL High: 200-499 mg/dL Very High: > or =500 mg/dL Fasting (8 HR or more) Yes 08/23/2023 4:19 AM CDT DTL Blood (Blood, Venous) 08/23/2023 3:42 AM CDT 08/23/2023 4:19 AM CDT Boubacar Brock M.D. LAB BLOOD ADD-ON Performing Organization Address [facility] Co de Phone Number [facility] [address] [place] [address] * Magnesium (08/23/2023 3:42 AM CDT) Magnesium, S 2.2 1.7 - 2.3 mg/dL 08/23/2023 4:50 AM CDT DTL Blood (Blood, Venous) 08/23/2023 3:42 AM CDT 08/23/2023 4:19 AM CDT Boubacar Brock M.D. LAB BLOOD ADD-ON Performing Organization Address [facility] Co de Phone Number [facility] [address] [place] [address], [place] [address] * (ABNORMAL) Renal Function Panel (08/23/2023 3:42 [...] CDT Boubacar Brock M.D[place] [address], [place] [address] * Heparin Anti-Xa Assay (08/23/2023 3:41 AM [...] LAB BLOOD NON ADD-ON Performing Organization Address City/[facility]/ZIP Co de Phone Number [facility] [address] [place] [address], [facility] DTL [facility] [address] [place] [address] * Glucose, POCT (08/22/2023 11:38 PM CDT) Glucose, POCT, B 117 70 - 140 mg/dL 08/23/2023 1:06 AM CDT PCLX Site Capillary 08/23/2023 1:06 AM CDT PCLX Last Intake NPO 08/23/2023 1:06 AM CDT PCLX Blood 08/22/2023 11:3 8 PM CDT 08/23/2023 1:06 AM CDT Unknown Provider LAB POCT ORDERABLES- MANUAL Performing Organization Address [facility] de Phone Number POC [facility] [address] [place] [address], [facility] PCLX [facility] POC [address] [place] [address] * Heparin Anti-Xa Assay (08/22/2023 10:14 PM [...] Boubacar Brock M.D. LAB BLOOD NON ADD-ON [facility] [address] [place] [address], [place] DTL [facility] [address] [place] [address] * CT Abdomen Pelvis without IV Contrast [...] LAB BLOOD NON ADD-ON Performing Organization Address City/[facility] Co de Phone Number [facility] [address], [place] [phone] [place] [address] 200 [place] [address] * Creatinine, Body Fluid (08/22/2023 3:30 PM [...] transport rates. All other fluids refer to www.Nutraspaces.com for further interpretive information. This test has been modified from the drum handler's instructions. Its performance characteristics were determined by [facility] in a manner consistent with CLIA requirements. This test has not been cleared or approved by the U.S. Food and Drug Administration. Fluid Type, Creatinine Fluid, Abdomen 08/22/2023 3:52 PM CDT DT Fluid (Abdomen) 08/22/2023 3 :30 PM CDT 08/22/2023 6:36 PM CDT Corin Ring M.D. LAB BODY FLUIDS AND STOOLS ORDERABLES Performing Organization Address [facility]/ZIP Co de Phone Number [facility] [address] [place] [address], [facility] [address] [place] [address] * Transfuse Red Blood Cells : (08/22/2023 [...] of a right IJ vein single-lumen 4 [place] tunneled PowerPICC ready for immediate use. NR [...] advanced into the IVC and a 4 [place] dilator advanced over the wire and attached to a one-way stopcock. A suitable exit site in the right anterior chest was anesthetized and a small incision made. A 4 [place] single-lumen PowerPICC was then tunneled from the [...] Wireadvanced into the IVC and a 4 [place] dilator advanced over the wire andattached to a one-way stopcock. A suitable exit site in the right anteriorchest was anesthetized and a small incision made. A 4 [place] single-lumen PowerPICC was then tunneled fromthe skin [...] of a right IJ vein single-lumen 4 [place] tunneled PowerPICCready for immediate use. NR Kimi [...] CDT Latisha Whitehead M.D. LAB BLOOD ADD-ON [facility] [address] [place], [place] [address] STMA [facility] [address] [place] [address] * Type and Screen (with Reflex Antibody ID) (08/22/2023 2:55 AM CDT) [facility] ABORh O Pos Not applicable 08/22/2023 3:25 AM CDT STRM Antibody Screen Negative Negative 08/22/2023 3:38 AM CDT STRM Type & Screen Expiration 08/25/2023 23:59 08/22/2023 3:25 AM CDT STRM Testing Location [place] DEFAULT 08/22/2023 3:07 AM CDT STRM Blood (Blood, Venous) 08/22/2023 2:55 AM CDT 08/22/2023 3:07 AM CDT Latisha Whitehead M.D. LAB BLOOD BANK T EST ORDERABLES Performing Organization Address City/State/[facility] Co de Phone Number [facility] [address] [place], [place] [address] 200 [place] [address] * (ABNORMAL) Comprehensive Metabolic Panel (08/22/2023 2:40 AM CDT) [facility] Potassium, S 3.2(L) 3.6 - 5.2 mmol/L [...] CDT Latisha Whitehead M.D. LAB BLOOD ADD-ON [facility] [address] [place] [address], [facility] [address] [place] [address] * Heparin Anti-Xa Assay (08/22/2023 2:40 AM [...] Whitehead M.D. LAB BLOOD NON AD D-ON [facility] [address] [place], [place] [phone] [place] [address] [place] [address] * (ABNORMAL) APTT (Activated Partial Thromboplastin Time) (08/22/2023 2:40 AM CDT) Pathologist [facility] Activated Partial Thrombopl Time, P 64(H) 25 - 37 sec 08/22/2023 3:12 AM CDT [facility] Blood (Blood, Venous) 08/22/2023 2:40 AM CDT 08/22/2023 3:01 AM CDT Latisha Whitehead M.D. LAB BLOOD ADD-ON [facility] [address] [place], [place] [address] [place] [address] [address] [place] [address] * Triglycerides (08/21/2023 7:32 AM CDT) Pathologist [facility] Triglycerides 98 mg/dL 08/21/2023 9:03 AM CDT [facility] Comment: ----REFERENCE VALUE---- Normal: <150 mg/dL Borderline High: 150-199 mg/dL High: 200-499 mg/dL Very High: > or =500 mg/dL Fasting (8 HR or more) Unknown 08/21/2023 8:38 AM CDT DTL Blood (Blood, Venous) 08/21/2023 7:32 AM CDT 08/21/2023 8:38 AM CDT Lizette Harvey M.D. LAB BLOOD ADD-O N [facility] [address] [place] [address], [facility] [address] [place] [address] * Phosphorus Inorganic (08/21/2023 7:32 AM CDT) Phosphorus (Inorganic), S 2.6 2.5 - 4.5 mg/dL 08/21/2023 9:03 AM CDT DTL Blood (Blood, Venous) 08/21/2023 7:32 AM CDT 08/21/2023 8:38 AM CDT Lizette Harvey M.D. LAB BLOOD ADD-O N Performing Organization Address City/[facility]/ZIP Co de Phone Number [facility] [address] [place] [address], [facility] [address] [place] [address] * Magnesium (08/21/2023 7:32 AM CDT) Magnesium, S 2.3 1.7 - 2.3 mg/dL 08/21/2023 9:03 AM CDT DTL Blood (Blood, Venous) 08/21/2023 7:32 AM CDT 08/21/2023 8:38 AM CDT Lizette Harvey M.D. LAB BLOOD ADD-O N [facility] [address] [place] [address], [facility] [address] [place] [address] * (ABNORMAL) Basic Metabolic Panel (08/21/2023 7:32 [...] ADD-O N [facility] [address] [place] [address], [facility] [address] [address] * (ABNORMAL) CBC without Differential (08/21/2023 7:32 [...] ADD-O N [facility] [place] [address], [facility] [place] [address] * Heparin Anti-Xa Assay (08/21/2023 7:32 AM [...] ADD-ON Performing Organization Address [facility] Co de Phone Number [facility] [facility] [address] [place] [address] * (ABNORMAL) APTT (Activated Partial Thromboplastin Time) (08/21/2023 7:32 AM CDT) Activated Partial Thrombopl Time, P 49(H) 25 - 37 sec 08/21/2023 8:31 AM CDT DT Blood (Blood, Venous) 08/21/2023 7:32 AM CDT 08/21/2023 8:06 AM CDT Boubacar Brock M.D. LAB BLOOD ADD-ON Performing Organization Address [facility] de Phone Number [facility] [address] [place] [address] * Place peripherally inserted central catheter (PICC) [...] atrophic right kidney. Lizette Harvey M.D. [facility] CT PROCEDUR ES * (ABNORMAL) Basic Metabolic Panel (08/20/2023 3:19 AM CDT) Pathologist [facility] [...] ADD-ON Performing Organization Address [facility] Co de Phone Number [facility] [address] [place] [address], [facility] [address] [place] [address] * (ABNORMAL) CBC without Differential (08/20/2023 3:19 [...] ADD-ON Performing Organization Address [facility]/ZIP Co de Phone Number [facility] [address] [place] [address], [facility] [address] [place] [address] * (ABNORMAL) APTT (Activated Partial Thromboplastin Time) (08/20/2023 3:19 AM CDT) Activated Partial Thrombopl Time, P 52(H) 25 - 37 sec 08/20/2023 4:33 AM CDT DTL Blood (Blood, Venous) 08/20/2023 3:19 AM CDT 08/20/2023 4:10 AM CDT Boubacar Brock M.D. LAB BLOOD ADD-ON Performing Organization Address City/[facility]/ZIP Co de Phone Number [facility] [address] [place], [place] [address] [place] [address] 200 [place] [address] * (ABNORMAL) APTT (Activated Partial Thromboplastin Time) (08/19/2023 10:57 AM CDT) Activated Partial Thrombopl Time, P 54(H) 25 - 37 sec 08/19/2023 11:44 AM CDT DTL Blood (Blood, Venous) 08/19/2023 10:57 AM CDT 08/19/2023 11:26 AM CDT Boubacar Brock M.D. LAB BLOOD ADD-ON Performing Organization Address [facility] Co de Phone Number [facility] [address] [place], [place] [address] [address] [place] [address] * (ABNORMAL) APTT (Activated Partial Thromboplastin Time) (08/19/2023 4:51 AM CDT) Activated Partial Thrombopl Time, P 59(H) 25 - 37 sec 08/19/2023 5:53 AM CDT DTL Blood (Blood, Venous) 08/19/2023 4:51 AM CDT 08/19/2023 5:36 AM CDT Boubacar Brock M.D. LAB BLOOD ADD-ON Performing Organization Address City/[facility]/ZIP Co de Phone Number [facility] [address], [place] [address] [address] [place] [address] * (ABNORMAL) APTT (Activated Partial Thromboplastin Time) (08/18/2023 10:03 PM CDT) Activated Partial Thrombopl Time, P 63(H) 25 - 37 sec 08/18/2023 10:41 PM CDT DTL Blood (Blood, Venous) 08/18/2023 10:03 PM CDT 08/18/2023 10:19 PM CDT Boubacar Brock M.D. LAB BLOOD ADD-ON [facility] [address] [place] [address], [facility] [address] [place] [address] * (ABNORMAL) APTT (Activated Partial Thromboplastin Time) (08/18/2023 2:50 PM CDT) [facility] Activated Partial Thrombopl Time, P 64(H) 25 - 37 sec 08/18/2023 3:25 PM CDT DT Blood (Blood, Venous) 08/18/2023 2:50 PM CDT 08/18/2023 3:07 PM CDT Boubacar Brock M.D. LAB BLOOD ADD-ON Performing Organization Address City/[facility]/ZIP Co de Phone Number [facility] [address] [place] [address], [facility] [address] [place] [address] * (ABNORMAL) APTT (Activated Partial Thromboplastin Time) (08/18/2023 6:42 AM CDT) [facility] Activated Partial Thrombopl Time, P 61(H) 25 - 37 sec 08/18/2023 7:28 AM CDT DTL Blood (Blood, Venous) 08/18/2023 6:42 AM CDT 08/18/2023 7:04 AM CDT Boubacar Brock M.D. LAB BLOOD ADD-ON [facility] [address] [place] [address], [facility] [address] [place] [address] * (ABNORMAL) APTT (Activated Partial Thromboplastin Time) (08/17/2023 11:04 PM CDT) Activated Partial Thrombopl Time, P 40(H) 25 - 37 sec 08/17/2023 11:46 PM CDT DTL Blood (Blood, Venous) 08/17/2023 11:04 PM CDT 08/17/2023 11:31 PM CDT Boubacar Brock M.D. LAB BLOOD ADD-ON [facility] [address] [place] [address], [facility] [address] [place] [address] * US Lower Extremity Veins Bilateral (08/17/2023 [...] and management can be found on the [facility] site. Link [email or web address]/clinical-[email or web address]/[email or web address] [email or web address] Findings discussed with ??Tayler Greenwood, ?? ([id number]) on 08/17/2023 7:11 PM. Procedure Note Jj [...] be found on theAskMayoExpert site. [email or web address] 1725 Findings discussed with Tayler Greenwood MD ([id number]) on 08/17/2023 7:11 PM. IMPRESSION: 1. Aging, [...] CDT Paula Hernandez M.D. LAB BLOOD ADD-ON [facility] [address] [place] [address], [facility] [address] [place] [address] * ECG 12 Lead (08/16/2023 9:43 PM CDT) Ventricular Rate ECG/Min 134 BPM MUSE MO Interval 136 ms MUSE QRSD Interval 76 ms MUSE QT Interval 298 ms MUSE QTC Interval 445 ms MUSE P Gonvick 29 degrees MUSE R Gonvick -6 degrees MUSE T Wave [place]vick 21 degrees MUSE 08/16/2023 9:43 PM CDT [...] CDT Geneva Azar M.D. LAB BLOOD ADD-ON [facility] [address] [place] [address], [facility] DTL [facility] [address] [place] [address] * (ABNORMAL) Basic Metabolic Panel (08/16/2023 9:40 [...] CDT Geneva Azar M.D. LAB BLOOD ADD-ON [facility] [address] [place] [address], [facility] DTL [facility] [address] [place] [address] * Transfuse Red Blood Cells : (08/16/2023 [...] CDT Paula Hernandez M.D. LAB BLOOD ADD-ON [facility] [address] [place] [address], [place] DTL [facility] [address] [place] [address] * (ABNORMAL) CBC without Differential (08/16/2023 3:10 [...] CDT Paula Hernandez M.D. LAB BLOOD ADD-ON [address] [address], [facility] [address] [place] [address] * (ABNORMAL) CBC with Differential, Blood (08/15/2023 [...] Carlos Alberto Henson M.D. LAB BLOOD ADD-ON [facility] [address] [place] [address], [facility] DTL [facility] [address] [place] [address] DHPM [facility] [address] [place] [address] * DX Abdomen 1 View (08/15/2023 1:19 [...] CDT 08/15/2023 12:03 PM CDT Rae Gonzalez EMBEDDED HARDWARE ENGINEER, DIRECTOR BIOLOGICS, DNAP LAB BLOO D NON ADD-ON [facility] [address] [place] [address] * Lactate, B - Intra-op (08/15/2023 11:56 AM CDT) Lactate, B 1.1 0.5 - 2.2 mmol/L 08/15/2023 12:06 PM CDT STMA Blood (Blood, Venous) 08/15/2023 11:56 AM CDT 08/15/2023 12:03 PM CDT Hayde Song M.D. LAB BLOOD NON ADD-O N [facility] [address] [place] [address], [facility] [address] [place] [address] * (ABNORMAL) Glucose, Whole Blood (08/15/2023 11:56 AM CDT) Glucose 144(H) 70 - 140 mg/dL 08/15/2023 12:06 PM CDT STMA Blood (Blood, Arterial Line) 08/15/2023 11:56 AM CDT 08/15/2023 12:03 PM CDT Hayde Song M.D. LAB BLOOD ADD-ON [facility] [address] [place], [place] [phone] [place] [address] 200 [place] [address] * Potassium, Blood (08/15/2023 11:56 AM CDT) Potassium, B 4.3 3.6 - 5.2 mmol/L 08/15/2023 12:07 PM CDT STMA Blood (Blood, Arterial Line) 08/15/2023 11:56 AM CDT 08/15/2023 12:03 PM CDT Hayde Song M.D. LAB BLOOD NON ADD-O N [facility] [address] [place], [place] [address] [place] [address] 200 [place] [address] * Sodium, B (08/15/2023 11:56 AM CDT) Sodium, B 135 135 - 145 mmol/L 08/15/2023 12:06 PM CDT STMA Blood (Blood, Arterial Line) 08/15/2023 11:56 AM CDT 08/15/2023 12:03 PM CDT Hayde Song M.D. LAB BLOOD NON ADD-O N Performing Organization Address City/[facility]/ZIP Co de Phone Number [facility] [address] [place], [place] [address] [place] [address] 200 [place] [address] * (ABNORMAL) Calcium, Ionized (08/15/2023 11:56 AM CDT) Calcium, Ionized, B 4.53(L) 4.65 - 5.30 mg/dL 08/15/2023 12:07 PM CDT STMA Blood (Blood, Arterial Line) 08/15/2023 11:56 AM CDT 08/15/2023 12:03 PM CDT Hayde Song M.D. LAB BLOOD NON ADD-O N Performing Organization Address City/[facility] Co de Phone Number [facility] [address] [place], [place] [address] [place] [address] 200 [place] [address] * (ABNORMAL) Blood Gas with Coox, Arterial [...] Song M.D. LAB BLOOD NON ADD-O N [facility] [address] [place] [address], [facility] [address] [place] [address] * FL Fluoro Less Than 1 Hour (08/15/2023 11:22 AM CDT) Narrative 152 HOS LOS RST - 08/15/2023 11:24 AM CDT This exam does not require a radiologist review or interpretation. Please refer to the patient's medical record on this date for clinical details. Boubacar Brock M.D. IMG FLUOROSCOPY PROC EDURES Performing Organization Address City/[facility]/ZIP Co de Phone Number 152 HOS LOS RST * Patient Status (08/15/2023 10:28 AM CDT) Temperature 36.1 37.0 deg C 08/15/2023 10:28 AM CDT STMA FIO2 0.55 0.21=AIR 08/15/2023 10:28 AM CDT STMA Blood 08/15/2023 10:2 8 AM CDT 08/15/2023 10:28 AM CDT Rae Gonzalez EMBEDDED HARDWARE ENGINEER, DIRECTOR BIOLOGICS, DNAP LAB BLOO D NON ADD-ON Performing Organization Address City/[facility]/ZIP Co de Phone Number [facility] [address] [place] [address], [facility] STMA [facility] [address] [place] [address] * Lactate, B - Intra-op (08/15/2023 10:28 AM CDT) Lactate, B 1.1 0.5 - 2.2 mmol/L 08/15/2023 10:30 AM CDT STMA Blood (Blood, Venous) 08/15/2023 10:28 AM CDT 08/15/2023 10:28 AM CDT Hayde Song M.D. LAB BLOOD NON ADD-O N [facility] [address], [place] [address] [address] [place] [address] * Glucose, Whole Blood (08/15/2023 10:28 AM CDT) Glucose 134 70 - 140 mg/dL 08/15/2023 10:30 AM CDT [facility] (Blood, Arterial Line) 08/15/2023 10:28 AM CDT 08/15/2023 10:28 AM CDT Hayde Song M.D. LAB BLOOD ADD-ON Performing Organization Address City/[facility]/ZIP Co de Phone Number [facility] [address] [place] [address], [facility] [address] [place] [address] * Potassium, Blood (08/15/2023 10:28 AM CDT) Potassium, B 4.1 3.6 - 5.2 mmol/L 08/15/2023 10:31 AM CDT STMA Blood (Blood, Arterial Line) 08/15/2023 10:28 AM CDT 08/15/2023 10:28 AM CDT Hayde Song M.D. LAB BLOOD NON ADD-O N [facility] [address] [place] [address] [address] [place] [address] * Sodium, B (08/15/2023 10:28 AM CDT) Sodium, B 135 135 - 145 mmol/L 08/15/2023 10:30 AM CDT [facility] Blood (Blood, Arterial Line) 08/15/2023 10:28 AM CDT 08/15/2023 10:28 AM CDT Hayde Song M.D. LAB BLOOD NON ADD-O N Performing Organization Address City/[facility]/ZIP Co de Phone Number [facility] [address] [place], [place] [address] [place] [address] [address] [place] [address] * (ABNORMAL) Calcium, Ionized (08/15/2023 10:28 AM CDT) Pathologist [facility] Calcium, Ionized, B 4.25(L) 4.65 - 5.30 mg/dL 08/15/2023 10:31 AM CDT [facility] Blood (Blood, Arterial Line) 08/15/2023 10:28 AM CDT 08/15/2023 10:28 AM CDT Hayde Song M.D. LAB BLOOD NON ADD-O N [facility] [address] [place], [place] [address] [place] [address] [address] [place] [address] * (ABNORMAL) Blood Gas with Coox, Arterial [...] BLOOD NON ADD-O N Performing Organization Address City/[facility]/ZIP Co de Phone Number [facility] [address] [place] [address], [facility] [address] [place] [address] * Bacteria / Yomaira Culture, Blood #2 (08/15/2023 3:33 AM CDT) Bacteria/Leyla da Culture, Blood No growth after 5 days of incubation. 08/20/2023 6:02 AM CDT DTL Blood (Blood, Peripheral Draw) 08/15/2023 3:33 AM CDT 08/15/2023 5:58 AM CDT Comment:Specimen Source Site : Blood Narrative [facility] - 08/20/2023 6:02 AM CDT Received Bactec aerobic and Bactec anaerobic bottles Carlos Alberto Henson M.D. LAB MICROBIOLOGY - G ENERAL ORDERABLES Performing Organization Address City/[facility]/ZIP Co de Phone Number [facility] [address] [place] [address], [facility] DTL [facility] [address] [place] [address] * (ABNORMAL) Basic Metabolic Panel (08/15/2023 3:31 AM CDT) Pathologist [facility] Potassium, S 4.0 3.6 - 5.2 mmol/L [...] Jakob De Paz M.D. LAB BLOOD ADD-ON [facility] [address] [place] [address], [facility] DTL [facility] [address] [place] [address] * Bacteria / Yomaira Culture, Blood #1 (08/15/2023 3:31 AM CDT) Pathologist [facility] Bacteria/Leyla da Culture, Blood No growth after 5 days of incubation. 08/20/2023 6:02 AM CDT DTL Blood (Blood, Peripheral Draw) 08/15/2023 3:31 AM CDT 08/15/2023 5:59 AM CDT Comment:Specimen Source Site : Blood Carlos Alberto Henson M.D. LAB MICROBIOLOGY - G ENERAL ORDERABLES [facility] [address] [place] [address], [facility] [address] [place] [address] * (ABNORMAL) CBC with Differential, Blood (08/15/2023 3:30 AM CDT) [facility] Hemoglobin 9.5(L) 13.2 - 16.6 g/dL 08/15/2023 [...] Carlos Alberto Henson M.D. LAB BLOOD ADD-ON [facility] [address] [place] [address], [facility] DTL [facility] [address] [place] [address] [facility] [address] [place] [address] * (ABNORMAL) CBC with Differential, Blood (08/14/2023 8:08 PM CDT) [facility] Hemoglobin 9.8(L) 13.2 - 16.6 g/dL 08/14/2023 [...] Carlos Alberto Henson M.D. LAB BLOOD ADD-ON [facility] [address] [place] [address], [facility] STMA [facility] [address] [place] [address] [facility] [address] [place] [address] * Transfuse Red Blood Cells : , [...] with Differential, Blood (08/14/2023 3:18 AM CDT) [facility] Hemoglobin 7.6(L) 13.2 - 16.6 g/dL 08/14/2023 [...] Carlos Alberto Henson M.D. LAB BLOOD ADD-ON [facility] [address] [place] [address], [facility] STMA [facility] [address] [place] [address] [facility] [address] [place] [address] * (ABNORMAL) Basic Metabolic Panel (08/14/2023 3:18 [...] BLOOD ADD-ON [facility] [address] [place] [address], [facility] DTL [facility] [address] [place] [address] * Type and Screen (with Reflex Antibody ID) (08/13/2023 7:35 PM CDT) ABORh O Pos Not applicable 08/13/2023 7:58 PM CDT STRM Antibody Screen Negative Negative 08/13/2023 8:13 PM CDT STRM Type & Screen Expiration 08/16/2023 23:59 08/13/2023 7:58 PM CDT STRM Testing Location [place] DEFAULT 08/13/2023 7:39 PM CDT STR Blood (Blood, Venous) 08/13/2023 7:35 PM CDT 08/13/2023 7:39 PM CDT Carlos Alberto Henson M.D. LAB BLOOD BANK TEST ORDERABLES Performing Organization Address [facility] Co de Phone Number [facility] [address] [place] [address], [facility] STRM [facility] [address] [place] [address] * (ABNORMAL) Bacteria / Yomaira Culture, Blood #1 (08/13/2023 7:35 PM CDT) Bacteria/Cand jessica Culture, Blood ESCHERICHIA COLI Growth after 11 Hours (A) 08/16/2023 11:17 AM CDT DTL Comment: 3 of 3 Bottles, Susceptibilities performed on another specimen [id number] Blood (Blood, Peripheral Draw) 08/13/2023 7:35 PM CDT 08/13/2023 8:15 PM CDT Comment:Specimen Source Site : Blood Carlos Alberto Henson M.D. LAB MICROBIOLOGY - G ENERAL ORDERABLES Performing Organization Address [facility] Co de Phone Number [facility] [address] [place] [address], [facility] DTL [facility] [address] [place] [address] * ECG 12 Lead (08/13/2023 7:02 PM CDT) Ventricular Rate ECG/Min 128 BPM MUSE MO Interval 138 ms MUSE QRSD Interval 64 ms MUSE QT Interval 304 ms MUSE QTC Interval 443 ms MUSE P Gonvick 45 degrees MUSE R Gonvick 34 degrees MUSE T Wave [place]vick 46 degrees MUSE 08/13/2023 7:02 PM CDT [...] abdominal wall. Procedure Note Killian Montenegro M.B.B.S., MDayday - 08/13/2023 EXAM: CT CYSTOGRAM WITHOUT IV [...] CDT Comment:Specimen Source Site : Blood Narrative [facility] - 08/16/2023 11:17 AM CDT [...] - G ENERAL ORDERABLES Performing Organization Address City/[facility]/ZIP Co de Phone Number [facility] [address] [place], [place] [address] [place] [address] * Magnesium (08/13/2023 5:27 PM CDT) Pathologist [facility] Magnesium, S 1.9 1.7 - 2.3 mg/dL 08/13/2023 6:12 PM CDT DT Blood (Blood, Venous) 08/13/2023 5:27 PM CDT 08/13/2023 5:58 PM CDT Carlos Alberto Henson M.D. LAB BLOOD ADD-ON Performing Organization Address City/[facility]/ZIP Co de Phone Number [facility] [address] [place], [place] [address] [place] [address] * (ABNORMAL) Hepatic Function Panel (08/13/2023 5:27 [...] Carlos Alberto Henson M.D. LAB BLOOD ADD-ON [address] [address], [address] [address] * (ABNORMAL) Basic Metabolic Panel (08/13/2023 5:27 [...] ADD-ON Performing Organization Address [facility] Co de Phone Number [facility] [address] STMA [facility] [address] [place] [address] * Prothrombin Time (PT) (08/13/2023 5:27 PM [...] Carlos Alberto Henson M.D. LAB BLOOD ADD-ON [facility] [address] [place] [address], [facility] STMA [address] [address] * (ABNORMAL) CBC with Differential, Blood (08/13/2023 [...] Carlos Alberto Henson M.D. LAB BLOOD ADD-ON [facility] [address] [place] [address], [facility] STMA [facility] [address] [place] [address] [facility] [address] [place] [address] * (ABNORMAL) Dipstick, Urine (08/13/2023 5:07 PM [...] M.D. LAB URINE ORDERABLES Performing Organization Address City/[facility]/ZIP Co de Phone Number [facility] [address] [place] [address], [facility] [address] [place] [address] * Osmolality, Urine (08/13/2023 5:07 PM CDT) Osmolality, U 351 150 - 1150 mOsm/kg 08/13/2023 7:46 PM CDT DTL Urine 08/13/2023 5:07 PM CDT 08/13/2023 5:45 PM CDT Carlos Alberto Henson M.D. LAB URINE ORDERABLES Performing Organization Address City/[facility]/ZIP Co de Phone Number [facility] [address] [place] [address], [facility] [address] [place] [address] * (ABNORMAL) Microscopic Manual (08/13/2023 5:07 PM [...] Carlos Alberto Henson M.D. LAB URINE ORDERABLES [facility] [address], [place] [address] [address] [place] [address] * pH, Random, Urine (08/13/2023 5:07 PM CDT) pH, Random, U 7.0 4.5 - 8.0 08/13/2023 7:46 PM CDT DTL Urine 08/13/2023 5:07 PM CDT 08/13/2023 5:45 PM CDT Carlos Alberto Henson M.D. LAB URINE ORDERABLES [facility] [address] [place], [place] [address] [place] [address] [address] [place] [address] * (ABNORMAL) Bacterial Culture, Aerobic + Susceptibility, [...] - G ENERAL ORDERABLES Performing Organization Address City/[facility]/ZIP Co de Phone Number [facility] [address] [place] [address], [facility] DTL [facility] [address] [place] [address] * (ABNORMAL) Urinalysis, with Microscopic: Urine, Midstream [...] CDT DTL Predicted 24 [place] [address](H) <229 mg/24 h 08/13/2023 8:50 PM CDT DTL Predicted Range [id number] mg/24 h 08/13/2023 8:50 PM CDT DTL Comment Micro done on <2.5 mL 08/13/2023 7:55 PM CDT DTL Urine (Urine, Midstream) 08/13/2023 5:07 PM CDT 08/13/2023 5:44 PM CDT Carlos Alberto Henson M.D. LAB URINE ORDERABLES Performing Organization Address [facility]/ZIP Co de Phone Number [facility] [address] [place] [address], [place] DTL [facility] [address] [place] [address] * Interpretation of Outside CT Abdomen and [...] may use home supply. 08/17/23: Id'ed by [facility] Rx# [id number], filled 07/22/23. HAZARDOUS - Handle with care. Swallow whole. Do NOT crush, chew or open capsule. Given 08/26/2023 9:12 AM CDT 120 mg Given 08/25/2023 9:08 AM CDT 120 mg Given 08/24/2023 9:12 AM CDT 120 mg Lactated Ringer's 1.5 mL/kg/hr ? 75 kg Oakwood weight (112.5 mL/hr, rounded to 113 mL/hr), intravenous, Continuous, Starting on Tue08/22/23 at 1030, Conditional Phase Pre-Gastrografin Administration. (Rate = 1.5 mL/kg/hr ideal body weight) Lactated Ringer's 0.75 mL/kg/hr ? 75 kg Oakwood weight (56.25 mL/hr, rounded to 56.3 mL/hr), [...] Forrest RRitesh.)1831 (Given - Provider: Mary Rosado RJonahNJonah) 0019 (Not Given - Provider: Fatuma See RNarendra - Reason: Patient/family refused)0639 (Given - Provider: Fatuma See RRitesh.)1136 (Given - Provider: Tayler Forrest R.N.)1750 (Not [...] use home supply. 08/17/23: Id'ed by [facility] [place] Rx# [id number], filled 07/22/23. HAZARDOUS - Handle with care. Swallow whole. Do NOT crush, chew or open capsule. 0912 (Given - Provider: Tayler Forrest R.N. - Comment: Pat Murray, -2nd RN) 0908 (Given - Provider: Tayler Forrest R.N. - Comment: Pt 's own med from home) 911 (Given - Provider: Lupe Valdez R.N.) fat emulsion [id number] & fish oil infusion 50 g (SMOFlipid) [...] Patient/family refused) 0911 (Not Given - Provider: Luep Valdez R.N. - Reason: Patient/family refused) metoprolol [...] See RJonahN.)1749 (Given - Provider: Antonia Salazar RJonahNJonah) 0626 (Given - Provider: Edith Simental RJonahNJonah)1600 [...] Lactated Ringer's 1.5 mL/kg/hr ? 75 kg [place] weight (112.5 mL/hr, rounded to 113 mL/hr), intravenous, Continuous, Starting on Tue08/22/23 at 1030, Conditional Phase Pre-Gastrografin Administration. (Rate = 1.5 mL/kg/hr ideal body weight) Lactated Ringer's 0.75 mL/kg/hr ? 75 kg [place] weight (56.25 mL/hr, rounded to 56.3 mL/hr), [...] [id number] documented in this encounter Care Teams Design Editor Relationship Specialty Start Date End Date Elsewhere, Pcp PCP - General Internal Medicine 08/13/23 documented as of this encounter
--- OUTSIDE RECORDS SUMMARY | 2023-10-21 08:18 | XMS_ITS | Clinical Summary ---
Author Organization [employer] [facility]ly [facility] Address [place], [place] [address] Care Team Providers Care Sand Analyst Name Role Phone Cesar Mccollum MD Primary Care Provider Nicola Ware MD Unavailable [phone] Mireya Tan MD Unavailable [phone] [facility] Unavailable [phone] Allergies No known active allergies Medications Medication [...] type, unspecified whether angina present, unspecified whether [place] or transplanted heart Take 1 Tablet (75 [...] iron, carbonyl (Perfect Iron) 25 mg iron tabIndications: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 CBF=553.87 Bladder mass 02/29/2020 04/30/2020 Hematuria 02/29/2020 03/05/2020 Acute deep vein thrombosis (DVT) 02/29/2020 11/20/2020 S/P coronary angioplasty 11/03/2016 Chest pain 09/15/2016 03/05/2020 Elevated prostate specific antigen (PSA) 10/06/2010 03/05/2020 Hip arthritis 10/06/2010 03/05/2020 Colon polyp 07/15/2010 PATRICE (acute kidney injury) Obstructive uropathy 020 Encounters Date Type Department Care Team Description 10/20/2023 10:35 AM CDT Office Visit [facility] [address] [place] [address] Cesar Mccollum MD Follow Up; Concerns (Discuss protocol for hyperbaric treatment at hospital) 10/20/2023 Travel 10/19/2023 9:45 AM CDT Home Care Visit [address] [address] [facility], JAMEL SN - HOME VISIT 10/18/2023 Home Care Visit [address] [address] Milli Torre, RN CARE COORDINATION 10/17/2023 3:00 PM CDT Home Care Visit [address] [address] Raffy Carter, PT PT - HOME VISIT 10/17/2023 10:00 AM CDT Home Care Visit [address] [address] Liz Fang, [facility] SWITCH OPERATOR - INITIAL ASSESSMENT 10/14/2023 Home Care Visit [address] [address] Raffy Carter, PT PT - MISSED VISIT 10/12/2023 Telephone [facility] [address] [place] [address] Cesar Mccollum MD Questions 10/11/2023 7:15 AM CDT Home Care Visit [address] [address] Manav Montero RN SN - WOUND/OSTOMY CHART CONSULT 10/10/2023 4:00 PM CDT Home Care Visit [address] [address] Deonna Oliveira, ENGINEERING ILLUSTRATOR PT - HOME VISIT 10/10/2023 10:30 AM CDT Home Care Visit [address] [address] Milli Torre, RN SN - HOME VISIT 10/08/2023 9:00 AM CDT Home Care Visit [address] [address] Justyna Hernandez RN SN - INITIAL ASSESSMENT 10/08/2023 Telephone [facility] [address] [place] [address] Cesar Mccollum MD Home Care (BP med parameters) 10/07/2023 11:30 AM CDT Home Care Visit [address] [address] Raffy Carter, PT PT - HOME VISIT 10/07/2023 Home Care Visit [address] [address] Milli Torre, RN CARE COORDINATION 10/06/2023 1:00 PM CDT Ancillary Procedure [address] [place] [address] 10/06/2023 Travel 10/04/2023 1:00 PM CDT Office Visit [facility] [address] [place] [address] Souleymane Miller MD Follow Up (Annual Follow up /Coronary artery disease) 10/04/2023 10:15 AM CDT Home Care Visit [address] [address] Manav Rodríguez, PT PT - OASIS START OF CARE 10/04/2023 Telephone [facility] [address], [place] [address] Manav Rodríguez, PT Home Care 10/04/2023 Orders Only [facility] [address] [place] [address] Souleymane Miller MD 1 scan: (1-Ord) NFLD-EKG-10/04/23 10/04/2023 Travel 10/04/2023 Plan of Care Documentation [address] [address] 10/03/2023 Telephone [facility] [address] [place] [address] Cesar Mccollum MD 10/02/2023 Home Care Visit [address] [address] Saul Lawson, RN CARE COORDINATION 10/01/2023 Home Care Visit [address] [address] Saul Lawson, RN CARE COORDINATION 09/29/2023 1:40 PM CDT Office Visit [facility] [address] [place] [address] Cesar Mccollum MD Hospital F/U (Ronceverte, urinary problem); Concerns (Bed sore - would like checked) 09/29/2023 Travel 09/23/2023 Telephone [facility] [address] [place] [address] Cesar Mccollum MD Results 09/22/2023 10:30 AM CDT Orders Only [facility] [address] [place] [address] Lab, [place] Lab 09/22/2023 9:50 AM CDT Nurse/Clinic Staff Only [facility] [address] [place] [address] Dressing Change 09/22/2023 Telephone [facility] [address] [place] [address] Cesar Mccollum MD Results 09/22/2023 Travel 09/21/2023 3:20 PM CDT Nurse/Clinic Staff Only [facility] [address] [place] [address] Procedure (UA collection from jon and neph tube) 09/21/2023 Telephone [facility] [address] [place] [address] Letty Mera MD 09/20/2023 2:15 PM CDT Ancillary Procedure [facility] [address] [facility] [place] [address] 09/20/2023 1:00 PM CDT Office Visit [facility] [address] [place] [address] Letty Mera MD Hospital F/U (Admission Date: 09/09/2023 Discharge Date: 09/15/23); Wound Check (sacrum & neph tube site. ); Home Care; Concerns (Feels like catheter is falling out - pt states that it is leaking. ) 09/20/2023 Travel 09/15/2023 Transcribe Orders [facility] [address] [place] [address] Provider, Non-Excellian 09/13/2023 Telephone [facility] [address] [place] [address] Cesar Mccollum MD Procedure (social service manager) 08/31/2023 Transcribe Orders [facility] [address] [place] [address] Senthil Alvarez MD 08/30/2023 Orders Only [facility] Scanner 1 scan: (1-Ord) [facility], 08/30/2023 08/23/2023 Transcribe Orders [facility] [address] [place] [address] Provider, Non-Excellian 08/13/2023 Orders Only [facility] Scanner 1 scan: (1-Ord) [facility], ABDOMEN/PELVIS W/O, 08/13/2023 08/04/2023 11:30 AM CDT Office Visit [facility] [address] [place] [address] Sandip Garcia, AuD Hearing Aid 08/04/2023 Travel 08/02/2023 2:30 PM CDT Orders Only [facility] [address] [place] [address] Lab, [place] [facility] 08/02/2023 Travel 08/02/2023 Orders Only [facility] [address] [place] [address] Cesar Mccollum MD <No scans attached> from Last 3 Months Immunizations Name Administration Dates Next Due COVID-19 Vaccine Spikevax (M oderna 50mcg/0.5mL) 12YO+ [id number] Formula PF 07/21/2023,03/08/2023 COVID-19 vaccine (Pfizer-Bio NTech [...] Sign Reading Time Taken Comments Blood Pressure 143/82 10/20/2023 10:38 AM CDT Pulse 66 10/20/2023 10:38 AM CDT Temperature 36.7 ??C (98 ??F) 10/19/2023 10:51 AM CDT Respiratory Rate 18 10/19/2023 10:51 AM CDT Oxygen Saturation 99% 10/20/2023 10:38 AM CDT Inhaled Oxygen Concentration - - Weight 80.4 kg (177 lb 3.2 oz) 10/20/2023 10:38 AM CDT Height 177.1 cm (5' 9.72) 07/21/2023 9:05 AM CD T Body Mass Index 25.63 07/21/2023 9:05 AM CDT Plan of Treatment Upcoming Encounters Date Type Department Care Team (Late st Contact Info) Description 10/21/2023 12:00 PM CDT Home Care Visit [address] [address] Raffy Carter, PT [address] [place] [address] 10/24/2023 4:00 AM CDT Home Care Visit [address] [address] Doreen Hussein RN [address] [place] [address] 10/24/2023 10:00 AM CDT Home Care Visit [address] [address] Liz Fang, [facility] [address] [place] [address] 10/25/2023 3:00 AM CDT Home Care Visit [address] [address] Raffy Carter, PT [address] [place] [address] 10/25/2023 4:00 AM CDT Home Care Visit [address] [address] Manva Montero RN [address] [place] [address] 10/28/2023 3:00 AM CDT Home Care Visit [address] [address] Raffy Carter, PT [address] [place] [address] 10/31/2023 4:00 AM CDT Home Care Visit [address] [address] Doreen Hussein RN [address] [place] [address] 11/07/2023 4:00 AM CDT Home Care Visit [address] [address] Doreen Hussein RN [address] [place] [address] 11/14/2023 4:00 AM CDT Home Care Visit [address] [address] Doreen Hussein RN [address] [place] [address] 11/21/2023 4:00 AM CDT Home Care Visit [address] [address] Doreen Hussein RN [address] [place] [address] 11/23/2023 2:05 PM CDT Office Visit [facility] [address] [place] [address] Cesar Mccollum MD [address] [place] [address] 11/28/2023 4:00 AM CDT Home Care Visit [address] [address] Doreen Hussein RN [address] [place] [address] Health Maintenance Due Date Last Done Comments [...] Completed 4 Medical Devices Implanted Type Area Chief Of [employer] Device Identifier Shelf Expiration Date Model / Serial / Lot Stent Uret [id number] Contour - [id number] Implanted:Qty: 1 on 07/18/2023 by Nicola Ware MD at [facility] Right: [facility] 02/27/2026 [id number] / / [id number] Procedures Procedure Name Priority Date/Time Associated Diagnosis Comments ECHO TTE COMPLETE WO CONTRAST DEBBI 10/06/2023 1:34 PM CDT Coronary artery disease, unspecified vessel or lesion type, unspecified whether angina present, unspecified whether [place] or transplanted heart EKG 12 LEAD Routine 10/04/2023 2:15 PM CDT Coronary artery disease, unspecified vessel or lesion type, unspecified whether angina present, unspecified whether [place] or transplanted heart NE READING EKG - NO CHARGE, COMP ONLY Routine 10/04/2023 2:14 PM CDT Coronary artery disease, unspecified vessel or lesion type, unspecified whether angina present, unspecified whether [place] or transplanted heart CBC WITH AUTO DIFFERENTIAL [...] bone (HC) Nephrostomy status (HC) SCAN-ULTRASOUND REPORT 4 12:00 AM CDT SCAN-CT INTERPRETATION 4 12:00 AM CDT HEMOGLOBIN Routine 08/02/2023 2:26 PM CDT Chronic blood loss anemia from Last 3 Months Results * ECHO TTE COMPLETE WO CONTRAST (10/06/2023 1:34 PM CDT) AORTIC VALVE MEAN PG 10 mmHg EJECTION FRACTION 60 % PEAK TR VELOCITY 2.8 m/s LVEDD 4.2 cm EJECTION FRACTION 65 - 70% Anatomical Region Laterality Modality Ultrasound 10/06/2023 12:5 9 PM CDT Narrative 10/06/2023 2:17 PM CDT ECHOCARDIOGRAM SHYAM SANDS ? Accession#: ?? [id number] : ?1940 83 years Study Date: ?? 10/06/2023 12:59:18 PM Gender: M ?BP: ? 131/72 mmHg Height: 175.26 cm ?BSA: ?1.98 m? ? ? Weight: 81.65 kg ? Tech: ? MBF ? Referring MD: SOULEYMANE MILLER Site: ? [facility] Reading Location: Mobile OP Patient Location: [...] . This study was interpreted by an [facility] accredited facility. ??Final ?? Procedure Note Manav Feliciano MD - 10/06/2023 ECHOCARDIOGRAM SHYAM SANDS : 1940 83 years Study Date: 10/06/2023 12:59:18 PM Gender: M BP: 131/72 mmHg Height: 175.26 cm BSA: 1.98 m? ? ? Weight: 81.65 kg Tech: MB Referring MD: SOULEYMANE MILLER Site: [facility] Reading Location: [place] [facility] Patient Location: Outpatient. Procedure: 2D, Color [...] . This study was interpreted by an [facility] accredited facility. Final Souleymane Miller MD ECHO ORD * EKG 12 LEAD (10/04/2023 2:15 PM CDT) Souleymane Miller MD EKG ORD * NE READING EKG - NO CHARGE, COMP ONLY (10/04/2023 2:14 PM CDT) Souleymane Miller MD PB - PROVIDER READ INGS * (ABNORMAL) CBC WITH AUTO DIFFERENTIAL (09/22/2023 10:39 AM CDT) Only the most recent of2 resultswithin the time period is included. Pathologist [facility] WHITE BLOOD COUNT 11.0 4.5 - 11.0 thou/cu mm 09/22/2023 10:46 AM CDT [facility] RED BLOOD COUNT 2.81(L) 4.30 - 5.90 mil/cu mm 09/22/2023 10:46 AM CDT [facility] HEMOGLOBIN 8.0(L) 13.5 - 17.5 g/dL 09/22/2023 10:46 AM CDT [facility] HEMATOCRIT 25.2(L) 37.0 - 53.0 % 09/22/2023 10:46 AM CDT [facility] MCV 90 80 - 100 fL 09/22/2023 10:46 AM CDT [facility] MCH 28.5 26.0 - 34.0 pg 09/22/2023 10:46 AM CDT [facility] MCHC 31.7(L) 32.0 - 36.0 g/dL 09/22/2023 10:46 AM CDT [facility] RDW 17.5(H) 11.5 - 15.5 % 09/22/2023 10:46 AM CDT [facility] PLATELET COUNT 466(H) 140 - 440 thou/cu mm 09/22/2023 10:46 AM CDT [facility] MPV 8.9 6.5 - 11.0 fL 09/22/2023 10:46 AM CDT [facility] % NEUT 86.3 % 09/22/2023 10:46 AM CDT [facility] % LYMPH 6.6 % 09/22/2023 10:46 AM CDT [facility] % MONO 5.8 % 09/22/2023 10:46 AM CDT [facility] % EOS 1.2 % 09/22/2023 10:46 AM CDT [facility] % BASO 0.1 % 09/22/2023 10:46 AM CDT [facility] ABSOLUTE NEUTROPHILS 9.5(H) 1.7 - 7.0 thou/cu mm 09/22/2023 10:46 AM CDT [facility] ABSOLUTE LYMPHOCYTES 0.7(L) 0.9 - 2.9 thou/cu mm 09/22/2023 10:46 AM CDT [facility] ABSOLUTE MONOCYTES 0.6 <0.9 thou/cu mm 09/22/2023 10:46 AM CDT [facility] ABSOLUTE EOSINOPHILS 0.1 <0.5 thou/cu mm 09/22/2023 10:46 AM CDT [facility] ABSOLUTE BASOPHILS 0.0 <0.3 thou/cu mm 09/22/2023 10:46 AM CDT [facility] Blood BLOOD SPECIMEN / Unknown Venipuncture / Unknown 09/22/2023 10:39 AM CDT 09/22/2023 10:43 AM CDT Letty Mera MD HEMATOLOGY [facility] [address] [place] [address], * (ABNORMAL) URINE CULTURE (09/21/2023 4:40 PM CDT) Only the most recent of2 resultswithin the time period is included. CULTURE RESULT(A) 09/24/2023 9:[address] [facility] TRAL LABORATORY CULTURE >100,000 CFU/mL Shirin albicans 09/24/2023 9:54 AM CDT [facility] TRAL LABORATORY Urine URINE SPECIMEN / Unknown Non-Blood / Unknown 09/21/2023 4:40 PM CDT 09/21/2023 4:41 PM CDT Letty Mera MD MICROBIOLO GY [facility] [address] [place] [address], [place] * XR CHEST 2 VIEWS PA [...] For Patients: As a result of the s Act, medical imagingexams and procedure reports are [...] * (ABNORMAL) HEMOGLOBIN (08/02/2023 2:26 PM CDT) HEMOGLOBIN 10.1(L) 13.5 - 17.5 g/dL 08/02/2023 2:31 PM CDT [facility] MCV 89 80 - 100 fL 08/02/2023 2:31 PM CDT [facility] Blood BLOOD SPECIMEN / Unknown Venipuncture / Unknown 08/02/2023 2:26 PM CDT 08/02/2023 2:26 PM CDT Cesar Mccollum MD HEMATOLOGY Performing Organization Address City/State/[facility] Co de Phone Number [facility] [address] [place] [address], [place] [phone] from Last 3 Months Advance Directives * [...] Code Status Discussion: Reviewed Preferences Care Teams Sand Analyst Relationship Specialty Start Date End Date Cesar Mccollum MD [address] [place] [address] PCP - General Family Practice 03/04/20 Nicola Ware MD [address] [place] [address] Surgery - Urology 03/13/20 Mireya Tan MD [address] [place] [address] Hematology - Pathology 03/13/20 [facility] [address] [place] [address] 09/29/23
--- OUTSIDE RECORDS SUMMARY | 2023-10-21 08:18 | XMS_ITS | Encounter Summary ---
Author Organization [facility] Address [address] [place] [address] Care Team Providers Care Public Transportation Inspector Name Role Phone Elsewhere, Pcp Primary Care Provider Unavailabl e Encounter Details Date Type Department Care Team (Late st Contact Info) Description 08/13/2023 4:35 PM CDT Ancillary Procedure Department of Radiology in [place], [place] [address] [place] [address] Carlos Alberto Henson M.D. [address] [place] [address] Social History Tobacco Use Types Packs/Day Years Used Date Smoking Tobacco: Never Smokeless Tobacco: Never [facility] Utilities Answer Date Recorded In the past 12 months has [facility] [employer], gas, oil, or water [employer] threatened to shut off services in your [...] on filedocumented in this encounter Care Teams Public Transportation Inspector Relationship Specialty Start Date End Date Elsewhere, Pcp PCP - General Internal Medicine 08/13/23 documented as of this encounter
--- OUTSIDE RECORDS SUMMARY | 2023-10-21 08:18 | XMS_ITS | Data Portability ---
Author Organization [facility], [facility] Address [address] [place] [address] Care Team Providers Care Conveyor Loader Name Role Phone MASOUD SAUER Primary Care Provider [phone] Assessment No assessment recorded. Plan of Treatment Reminders Order Date Submit Date Provider Last Modified By Organization Details Last Modified Time Details Appointments None recorded . Lab urinalys is, dipstick 2023 024 [email or web address] [facility], [address] [place], [address], 4 15:08:54 culture, urine 2023 024 [facility], [address], [place], [address], 4 10:11:11 Referral None recorded . Procedures None recorded . Surgeries cystosco py with ureteral stent exchange (SURG) 2021 022 [email or web address] Not available 16:50:47 cystosco py with ureteral stent exchange (SURG) 2021 022 Not available 15:46:30 Imaging None recorded . Medication Orders Myrbetri q 50 mg tablet,e xtended release 2021 022 YONKERS [id number], [address] [place], [place], [phone], 2 17:50:02 Bactrim DS 800 mg-160 mg tablet 2023 024 [email or web address] [facility] #[id number], [address] [facility], [place], [place], [phone], 16:19:28 Patient TargetsNo targets recorded. Patient InstructionsNo instructions recorded. Reason for Referral None Reported. Results Created Date Observation Date Name Description Value Unit Range Abnormal Flag LastModifiedBy Organization Detail LastModifiedTime 06/23/1906/23/2023 URINE CULTU RE final report MICROB IOLOGY RESULT S Not Available [facility] [address], [place], [address], 06/25/2023 10:11:11 06/23/19 24 06/23/2023 urina lysis , dipst ick Color-Status Red Not Available [facility] [address], [place], [address], 06/23/2023 15:08:10 06/23/19 24 06/23/2023 urina lysis , dipst ick pH-Status 7.5 Not Available [facility] [address], [place], [address], 06/23/2023 15:08:10 06/23/19 24 06/23/2023 urina lysis , dipst ick Protein-Stat us >=9.0 Not Available [facility] [address], [place], [address], 06/23/2023 15:08:10 06/23/19 24 06/23/2023 urina lysis , dipst ick Nitrates-Sta tus negati ve Not Available [facility] [address], [place], [address], 06/23/2023 15:08:10 06/23/19 24 06/23/2023 urina lysis , dipst ick Blood-Status Large Not Available [facility] [address], [place], [address], 06/23/2023 15:08:10 06/23/19 24 06/23/2023 urina lysis , dipst ick Leuko-Status Negati ve Not Available [facility] [address], [place], [address], 06/23/2023 15:08:10 06/23/19 24 06/23/2023 urina lysis , dipst ick Specimen Type Voided Not Available [facility] [address], [place], [address], 06/23/2023 15:08:10 07/04/19 24 07/01/2023 CT, abdom en + pelvi s, w/o contr ast No observ [facility]ion [email or web address] [address], [place], [address], 09/01/2023 14:40:29 07/18/19 24 07/18/2023 XR, kidne y + urete r + bladd er No observ ation record ed. [email or web address] [facility] [address], [place], [address], 07/22/2023 15:56:19 Result Notes None recorded. Procedures Surgical History Date Name Laterality Status Provider Name and Address Organization Details Recorded Time Bladder Scan completed Rabia matthews, [facility] 06/23/2023 15:08:00 Cystoscopy completed Nicola Ware MD [address] [place] [address],[address], [place], [address], [facility] 12/30/2021 17:11:17 Colonoscopy completed Nicola Ware MD [address] [place] [address],[address], [place], [address], [facility] 12/30/2021 17:11:22 Imaging Results Imaging Date Name Status LastModified by [facility] Details LastModified Time 07/01/2023 CT, abdomen + pelvis, w/o contrast completed [facility] [address], [place], [address], 09/01/2023 14:40:29 07/18/2023 XR, kidney + ureter + bladder completed [facility] [address], [place], [address], 07/22/2023 15:56:19 Procedure Notes None recorded. Medical [...] [facility]ON[facility] [employer] [employer] RECEIVED FROM [facility] active Not Available Not Available No t Available furosemide 20 mg tablet TAKE 1 TABLET BY MOUTH DAILY active Not Available Not Available No t Available cefuroxime axetil 500 mg tablet active Not Available Not Available No t Available polyethylen e glycol 3350 17 gram/dose oral powder MIX AND DRINK DIRECTED IN [employer] [facility] RECEIVED FROM [facility] active Not Available Not Available No [...] Updated DateTime 12/30/2021 177.8 cm 27.4 kg/m2 20820.14 g Nicola Ware MD [address] [place] [address], [phone] 12/30/2021 17:10:12 Date Recorded Body height Body mass index (BMI) Body weight Provider Name and Address Organization Details Last Updated DateTime 03/12/2022 177.8 cm 27.4 kg/m2 58858.14 g Rabia Ferrell [facility] 03/12/2022 13:55:47 Social History Question Answer Notes LastModified by Organizat ion Details LastModified Time Tobacco Smoking Status Never Smoker Nicola Ware MD [address] [place] [address], [address], [facility] 12/30/2021 17:11:00 What Is Your Level [...] Encounter Closed Date Diagnosis/Indication Diagnosis SNOMED-CT Code [id number] Nicola Ware MD [facility] [address] [place] [address] 12/30/2021 16:01:19 01/01/2022 09:36:50 Increased frequency of urination 076932216 Malignant tumor of prostate 834434122 Hydronephrosis 82131233 [id number] Aliza Landeros [facility] [address] [place] [address] 03/12/2022 13:13:50 03/15/2022 14:00:47 Increased frequency of urination 312024719 Malignant tumor of prostate 569877919 Hydronephrosis 36941144 [id number] Nicola Ware MD [facility] [address] [place] [address] 06/23/2023 14:16:52 06/24/2023 08:40:38 Blood in urine [id number] Health Concerns Section Related Observation LastModified by Organization Detai ls LastModified Time None Recorded Concern Status LastModified by Organization Details LastModified Time None Recorded Advance Directives Directive None Recorded Payers Encounter Date Sequence Insurance Name Policy Number Policy Krishnan Covered Member ID Krishnan Member ID Guarantor Name 12/30/2021 1 [employer] (MEDICARE REPLACEMENT/ ADVANTAGE - PPO) [id number] José Miguel D Braucher [id number] José Miguel D Braucher 03/12/2022 1 [employer] (MEDICARE REPLACEMENT/ ADVANTAGE - PPO) [id number] José Miguel D Braucher [id number] José Miguel D Braucher 06/23/2023 1 [employer] (MEDICARE REPLACEMENT/ ADVANTAGE - PPO) [id number] José Miguel D Braucher [id number] José Miguel D Braucher Notes Date Note Type Note Provider Name and Address Organization Details Recorded Time 12/30/2021 text/html HPI Notes: Excer pt from hospital consultation... 81 y.o. year old male who was admitted to [facility] for gross hematuria & CT findings. Onset [...] some of the history. Nicola Ware MD [address] [place] [address],[address], [place], [address], [facility] 12/30/2021 23:07:10 03/12/2022 text/html HPI Notes: Excer pt from hospital consultation... 81 y.o. year old male who was admitted to [facility] for gross hematuria & CT findings. Onset [...] some of the history. Nicola Ware MD [address] [place] [address],[address], [place], [address], [facility] 03/12/2022 17:21:47 06/23/2023 text/html HPI Notes: 83 Y male here after calling triage this AM with hematuria/pain with urination. Patient has stent in place, last exchange 02/08/2022. 06/23/23 visit completed by Curry Ware MD [address] [place] [address],[address], [place], [address], [facility] 06/23/2023 16:19:33
--- OUTSIDE RECORDS SUMMARY | 2023-10-21 08:18 | XMS_ITS | Encounter Summary ---
Author Organization [facility] Address [address] [place] [address] Care Team Providers Care Olericulture Teacher Name Role Phone Elsewhere, Pcp Primary [...] documented as of this encounter Care Teams Olericulture Teacher Relationship Specialty Start Date End Date Elsewhere, Pcp PCP - General Internal Medicine 08/13/23 documented as of this encounter
== END 2023-10-21 08:10 | disposition home or self-care (01) ==
LOC: WOUND 08:09
PROVIDERS: PCP Family Medicine; Visit Provider Nurse Practitioner Family
DX: L89.153 Pressure ulcer of sacral region, stage 3 (principal); C61 Malignant neoplasm of prostate; N30.41 Irradiation cystitis with hematuria; K62.7 Radiation proctitis; D64.9 Anemia, unspecified; Y84.2 Radiological procedure and radiotherapy as the cause of abnormal reaction of the patient, or of later complication, without mention of misadventure at the time of the procedure
CPT/HCPCS: 11042; G0277

== ENCOUNTER 2023-10-28 12:31 | Outpatient (CLI) | payer MEDICARE, OTHER, SELFPAY ==
--- OUTSIDE RECORDS SUMMARY | 2023-10-28 12:33 | XMS_ITS | Clinical Summary ---
Author Organization [facility] Address [address] [place] [address] Care Team Providers Care Bung Sewer Name Role Phone Elsewhere, Pcp Primary Care Provider Unavailabl e Source Comments Patient records contain information from all sites at [facility]. For routine questions regarding patient records, call [phone] during business hours, M-F 8:00 AM - 5:00 PM Central Time. Record requests for emergency care only can be directed to [phone] at any time.[facility] Allergies No known active allergies Medications Medication [...] Encounters Date Type Department Care Team Description 10/27/2023 Clinical Communication Department of Urology in [place], [place] [address] [place] [address] Burke Strauss M.D. 10/14/2023 1:00 PM CDT Procedure visit Department of Urology in [place], [place] [address] [place] [address] Paula Hernandez M.D. Reichmann, Lynne G, R.N. Hematuria 10/14/2023 Documentation Department of Urology in [place], [place] [address] [place] [phone] Paula Hernandez M.D. Catheter Care Plan 09/27/2023 Clinical Communication Department of Urology in [place], [place] [address] [place] [phone] Paula Hernandez M.D. 09/21/2023 Clinical Communication Department of Urology in [place], [place] [address] [place] [phone] Paula Hernandez M.D. 09/16/2023 Clinical Communication Department of Urology in [address] [phone] Provider, Unknown follow up questions 09/16/2023 Orders Only Department of Urology in [address] [phone] Paula Hernandez M.D. Hematuria Gross (Primary Dx) 09/15/2023 Clinical Communication [facility] [address] [place] [phone] Yasmine Loco 09/09/2023 12:10 PM CDT Ancillary Procedure Department of Nursing 09/09/2023 7:24 AM CDT - 09/15/2023 5:28 PM CDT Hospital Encounter [facility], [facility], Sixth Floor [address] [place] [phone] Gerri Merrill M.D., Ph.D. Sumit Holbrook M.D. Hematuria (Primary Dx) Discharge Disposition: Home or Self Care 09/09/2023 Documentation Department of Urology in [place], [place] [address] [place] [phone] Ko Victoria M.D. 09/06/2023 Orders Only Section of Hyperbaric Medicine in [address] [phone] Kira Ferraro APRN, C.N.P., M.S.N. 09/06/2023 Clinical Communication [facility] [address] [place] [phone] Yasmine Loco 09/01/2023 10:05 AM CDT Ancillary Procedure Department of Nursing 08/31/2023 12:36 PM CDT - 08/31/2023 2:31 PM CDT Surgery [facility] [address] [place] [phone] Mayur Alvarez M.D. CYSTOSCOPY EVACUATION CLOTS 08/31/2023 12:34 PM CDT Anesthesia Event [facility] [address] [place] [phone] Joe Stoll M.D. Benjamin Williamson APRN, CRNA 08/31/2023 12:25 PM CDT Ancillary Procedure Department of General Surgery 08/30/2023 7:35 PM CDT - 09/05/2023 4:09 PM CDT Hospital Encounter , [facility], [facility], First Floor [address] [place] [phone] Kirstin Hughes M.D. Thompson, R. Houston, M.D. Hematuria (Primary Dx); Tachycardia; Hematuria Gross Discharge Disposition: Home-Health Care [facility] 08/30/2023 Documentation Department of Urology in [place], [place] [address] [place] [phone] Corin Ring M.D. 08/30/2023 Intake [facility] 08/26/2023 Orders Only Department of Urology in [place], [place] [address] [place] [phone] Paula Hernandez M.D. 08/23/2023 12:45 AM CDT Ancillary Procedure Department of Nursing 08/15/2023 8:30 AM CDT Anesthesia Event [facility] [address] [place] [phone] Hayde Song M.D. 08/15/2023 7:55 AM CDT - 08/15/2023 11:23 AM CDT Surgery [facility] [address] [place] [phone] Boubacar Brock M.D. Palliative EXPLORATORY LAPAROTOMY, CYSTOTOMY CLOSURE, RIGHT URETERAL STENT EXCHANGE 08/13/2023 4:35 PM CDT Ancillary Procedure Department of Radiology in [place], [place] [address] [place] [address] Carlos Alberto Henson M.D. 08/13/2023 3:42 PM CDT - 08/26/2023 4:11 PM CDT Hospital Encounter [facility], [facility], Sixth Floor [address] [place] [address] Darnell Garcia M.D. Chow, George K, M.D. Decline Functional Status [R53.81] (Primary Dx); Hematuria [R31.9] Discharge Disposition: Home or Self Care 08/13/2023 Intake [facility] from Last 3 Months Social History Tobacco Use Types Packs/Day Years Used Date Smoking Tobacco: Never Smokeless Tobacco: Never Tobacco Cessation:Counseling Given: Not Answered [facility] Utilities Answer Date Recorded In the past 12 months has [facility] [employer], gas, oil, or water [place] threatened to shut off services in your [...] your living situation today? I have a [facility] place to live 09/09/2023 Sex and [...] Care Team (Late st Contact Info) Description 11/09/2023 11:00 AM CDT Office Visit Department of Urology in [place], [place] [address] [place] [address] Burke Strauss M.D. [address] [place] [phone] Discharge Disposition: Home or Self Care Health Maintenance Due Date Last Done Comments Zoster Vaccines (1 of 2) 1989 Depression Screening (Annual PHQ-2) 04/11/2023 Fall Risk Screen (Annual) 04/11/2023 Influenza Vaccine (#1) 2024 03/08/2023, 2021 DTaP,Tdap,and Td Vaccines (2 - Td or Tdap) 09/07/2026 09/07/2016 COVID-19 Vaccine Completed 07/21/2023, , 09/13/2022, Additional history exists Pneumococcal vaccine (65+ years) Completed 07/21/19 24 Medical Devices Implanted Type Area Maturity Checker Device Identifier Shelf Expiration Date Model / Serial / Lot Clp Hrzn Ti 6 Clp Lg Orng - [id number] Implanted:Qt y: 1 on 08/15/2023 by Boubacar Brock M.D. at [facility] Hardware e.g. pins/screws /rods Abdomen [employer] [id number] 02/29/2028 [id number] / / [id number] Clp Hrzn Ti 6 Clp Lg Orng - [id number] Implanted:Qt y: 1 on 08/15/2023 by Boubacar Brock M.D. at [facility] Hardware e.g. pins/screws /rods Abdomen [employer] [id number] 02/29/2028 [id number] / / [id number] Clp Hrzn Ti 6 Clp Md Monty - [id number] Implanted:Qt y: 1 on 08/15/2023 by Boubacar Brock M.D. at [facility] Hardware e.g. pins/screws /rods Abdomen [employer] [id number] 03/13/2028 [id number] / / [id number] 1 Clp Hrzn Ti 6 Clp Md Monty - [id number] Implanted:Qt y: 1 on 08/15/2023 by Boubacar Brock M.D. at [facility] Hardware e.g. pins/screws /rods Abdomen [employer] [id number] 03/21/2028 [id number] / / [id number] Stnt Uret Inl 6fx24 - [id number] Implanted:Qt y: 1 on 08/15/2023 by Jakob De Paz M.D. at [facility] Ureteral Stent N/A: Ureter C.R.Bard [id number] 11/18/2027 [id number] / / [id number] Procedures Procedure Name Priority Date/Time Associated Diagnosis [...] LINE INSERTION Routine 08/15/2023 9:51 AM CDT AR US GUIDE VASC ACCESS Routine 08/15/2023 9:51 AM CDT AR ARTL CATH/CNULA MONITOR PERC Routine 08/15/2023 9:51 [...] CDT Paula Hernandez M.D. LAB BLOOD ADD-ON [address] [address], [address] [address] * Heparin Anti-Xa Assay (09/14/2023 3:19 AM [...] Sumit Holbrook M.D. LAB BLOOD NON ADD-ON [facility] [place] [address] [place] [address], [facility] [address] [place] [address] * IR Nephrostomy Tube Placement Left (09/13/2023 2:20 PM CDT) Anatomical Region Laterality Modality Genito Urinary, Vascular Int erventional RST LOS, Vascular Interventional ARZ LOS, Vascular Interventional FLA LOS Left X-Ray Angiography Impressions 09/13/2023 2:33 PM CDT Left 10 Bermudian percutaneous nephrostomy tube placement. EP Narrative 09/13/2023 [...] tract was further dilated and a 10 Bermudian nephrostomy tube was placed with loop formed [...] sedation timewas: 9 minutes. IMPRESSION: Left 10 Bermudian percutaneous nephrostomy tube placement. EP Latisha Whitehead [...] MICROBIOLOGY - GENERAL ORDERABLES Performing Organization Address City/[facility]/ZIP Co de Phone Number [facility] [place] [address] [place] [address], [facility] [address] [place] [address] * Gram Stain (09/13/2023 2:17 PM CDT) Gram Stain No organisms seen. White blood cells, Rare 09/13/2023 9:02 PM CDT DTL Fluid (Kidney, Left) 09/13/2023 2:17 PM CDT 09/13/2023 3:56 PM CDT Comment:Specimen Source Site : Fluid Latisha Whitehead M.D. LAB MICROBIOLOGY - GENERAL ORDERABLES Performing Organization Address City/[facility]/ZIP Co de Phone Number [facility] [place] [address] [place] [address], [facility] [address] [place] [address] * Fungal Culture, Routine (09/13/2023 2:17 PM CDT) Fungal Culture, Routine No growth after 24 days of incubation. 10/08/2023 1:02 AM CDT DTL Fluid (Kidney, Left) 09/13/2023 2:17 PM CDT 09/13/2023 3:56 PM CDT Comment:Specimen Source Site : Fluid Latisha Whitehead M.D. LAB MICROBIOLOGY - GENERAL ORDERABLES Performing Organization Address City/[facility] Co de Phone Number [facility] [place] [address] [place] [address] * Bacterial Culture, Anaerobic + Susceptibility (09/13/2023 2:17 PM CDT) Bacterial Culture, Anaerobic + Susc No growth after 14 days of incubation. 09/27/2023 8:04 AM CDT DTL Fluid (Kidney, Left) 09/13/2023 2:17 PM CDT 09/13/2023 3:56 PM CDT Comment:Specimen Source Site : Fluid Latisha Whitehead M.D. LAB MICROBIOLOGY - GENERAL ORDERABLES Performing Organization Address [facility] Co de Phone Number [facility] [place] [address] [place], [place] [address] [place] [address] [address] [place] [address] * APTT (Activated Partial Thromboplastin Time) (09/13/2023 5:56 AM CDT) Only the most recent of18 resultswithin the time period is included. Activated Partial Thrombopl Time, P 35 25 - 37 sec 09/13/2023 7:14 AM CDT DTL Blood (Blood, Venous) 09/13/2023 5:56 AM CDT 09/13/2023 6:53 AM CDT Sumit Holbrook M.D. LAB BLOOD ADD-ON Performing Organization Address City/[facility] Co de Phone Number [facility] [place] [address] [place] [address], [facility] DTL [facility] [address] [place] [address] * (ABNORMAL) Basic Metabolic Panel (09/13/2023 5:56 AM CDT) Only the most recent of14 resultswithin the time period is included. Pathologist [facility] Potassium, S 3.7 3.6 [...] CENTER, [place] [address] [place] [address], [facility] DTL [facility] [address] [place] [address] * NM Kidney DMSA (09/12/2023 12:21 PM [...] LAB URINE ORDERA BLES Performing Organization Address City/[facility] Co de Phone Number [facility] [place] [address] [place] [address], [facility] [address] [place] [address] * (ABNORMAL) Dipstick, Urine (09/09/2023 11:28 AM [...] Jeffery Church M.D. LAB URINE ORDERA BLES [facility] [place] [address] [place] [address], [facility] [place] [address] [place] [address] * pH, Random, Urine (09/09/2023 11:28 AM CDT) Only the most recent of2 resultswithin the time period is included. Pathologist [facility] pH, Random, U 6.3 4.5 - 8.0 09/09/2023 12:19 PM CDT DTL Urine 09/09/2023 11:2 8 AM CDT 09/09/2023 11:58 AM CDT Jeffery Church M.D. LAB URINE ORDERA BLEBryon [facility] [place] [address] [place] [address], [facility] [address] [place] [address] * (ABNORMAL) Microscopic Manual (09/09/2023 11:28 AM CDT) Only the most recent of2 resultswithin the time period is included. [facility] Microscopy Abnormal 09/09/2023 12:37 PM CDT DTL [...] Jeffery Church M.D. LAB URINE ORDERA SHELLY [facility] [place] [address] [place] [address], [facility] [address] [place] [address] * (ABNORMAL) Bacterial Culture, Aerobic + Susceptibility, Urine (09/09/2023 11:28 AM CDT) Only the most recent of3 resultswithin the time period is included. [facility] Urine Culture ENTEROBACTER CLOACAE COMPLEX >100,000 cfu/mL [...] GENERAL ORDERABLES Performing Organization Address [facility] Co de Phone Number [facility] [place] [address] [place] [address] * (ABNORMAL) Gram Stain, Urine (09/09/2023 11:28 AM CDT) Source Urine, Urine, Straight Catheter 09/09/2023 11:58 AM CDT DTL Gram Stain, U Positive(A) Negative 09/09/2023 12:16 PM CDT DTL Comment: Few Gram-negative bacilli ? Yeast Urine 09/09/2023 11:2 8 AM CDT 09/09/2023 11:58 AM CDT Jeffery Church M.D. LAB URINE ORDERA BLES Performing Organization Address [facility] Co de Phone Number [facility] [place] [address] [place] [address] * (ABNORMAL) Urinalysis, with Microscopic: Urine, Straight [...] 09/09/2023 1:02 PM CDT DTL Predicted Range 2480-20454 mg/24 h 09/09/2023 1:02 PM CDT DTL Comment Micro done on <2.5 mL 09/09/2023 12:27 PM CDT DTL Urine (Urine, Straight Catheter) 09/09/2023 11:28 AM CDT 09/09/2023 11:58 AM CDT Jeffery Church M.D. LAB URINE ORDERA SHELLY [facility] [place] [address] [place] [address], [facility] DTL [facility] [address] [place] [address] * US Kidneys Bilateral with Bladder (09/09/2023 [...] 0.9 - 1.1 09/09/2023 8:14 AM CDT [facility] Comment: ----ADDITIONAL INFORMATION---- Standard intensity warfarin therapeutic range: 2.0 to 3.0 ?? High intensity warfarin therapeutic range: 2.5 to 3.5 Blood (Blood, Venous) 09/09/2023 8:04 AM CDT 09/09/2023 8:08 AM CDT Jeffery Church M.D. LAB BLOOD ADD-ON [facility] [place] [address] [place] [address], [facility] [address] [place] [address] * (ABNORMAL) CBC with Differential, Blood (09/09/2023 8:04 AM CDT) Only the most recent of7 resultswithin the time period is included. [facility] Hemoglobin 8.9(L) 13.2 - 16.6 g/dL 09/09/2023 [...] CDT Jeffery Church M.D. LAB BLOOD ADD-ON [facility] [address] [place] [address], [facility] STMA [facility] [address] [place] [address] [facility] [address] [place] [address] * Type and Screen (with Reflex Antibody ID) (09/09/2023 8:03 AM CDT) Only the most recent of6 resultswithin the time period is included. [facility] ABORh O Pos Not applicable 09/09/2023 8:47 AM CDT STRM Antibody Screen Negative Negative 09/09/2023 9:02 AM CDT STRM Type & Screen Expiration 09/12/2023 23:59 09/09/2023 8:47 AM CDT STRM Testing Location [place] DEFAULT 09/09/2023 8:10 AM CDT STRM Blood (Blood, Venous) 09/09/2023 8:03 AM CDT 09/09/2023 8:10 AM CDT Jeffery Church M.D. LAB BLOOD BANK T EST ORDERABLES [facility] [place] [address] [place], [place] [address] [address] [place] [address] * Potassium (09/05/2023 4:56 AM CDT) Only the most recent of2 resultswithin the time period is included. [facility] Potassium, S 3.6 3.6 - 5.2 mmol/L 09/05/2023 5:49 AM CDT DTL Blood (Blood, Venous) 09/05/2023 4:56 AM CDT 09/05/2023 5:22 AM CDT Roxy Romero M.D. LAB BLOOD ADD-ON [facility] [place] [address] [place] [address], [facility] DTL [facility] [address] [place] [address] * [place] Fluoro Less Than 1 Hour [...] Vieira M.D., M.S. LAB BLOO D ADD-ON [facility] [place] [address] [place] [address] * Lactate (08/30/2023 9:50 PM CDT) Pathologist [facility] Lactate, P 1.8 0.5 - 2.2 mmol/L 08/30/2023 10:09 PM CDT [facility] Blood (Blood, Venous) 08/30/2023 9:50 PM CDT 08/30/2023 9:55 PM CDT Shannan Correa D.O., M.H.A. LAB BLOOD NON ADD-ON [facility] [place] [address] [place] [address] * DX Chest AP or PA and [...] included. Ventricular Rate ECG/Min 145 BPM MUSE AR Interval 136 ms MUSE QRSD Interval 64 ms MUSE QT Interval 260 ms MUSE QTC Interval 403 ms MUSE P Bradley 44 degrees MUSE R Bradley 9 degrees MUSE T Wave Bradley -76 degrees MUSE 08/30/2023 7:44 PM CDT [...] M.D. LAB BLOOD ADD-ON Performing Organization Address City/[facility]/ZIP Co de Phone Number [facility] [place] [address] [place] [address], [facility] [address] [place] [address] * Magnesium (08/26/2023 3:20 AM CDT) Only the most recent of6 resultswithin the time period is included. Magnesium, S 2.1 1.7 - 2.3 mg/dL 08/26/2023 4:04 AM CDT DT Blood (Blood, Venous) 08/26/2023 3:20 AM CDT 08/26/2023 3:50 AM CDT Boubacar Brock M.D. LAB BLOOD ADD-ON Performing Organization Address [facility] Co de Phone Number [facility] [place] [address] [place] [address], [facility] [address] [place] [address] * (ABNORMAL) Phosphorus Inorganic (08/23/2023 9:58 PM CDT) Only the most recent of2 resultswithin the time period is included. Phosphorus (Inorganic), S 2.1(L) 2.5 - 4.5 mg/dL 08/23/2023 10:45 PM CDT DTL Blood (Blood, Venous) 08/23/2023 9:58 PM CDT 08/23/2023 10:30 PM CDT Paula Hernandez M.D. LAB BLOOD ADD-ON Performing Organization Address City/[facility]/ZIP Co de Phone Number [facility] [place] [address] [place] [address], [facility] [address] [place] [address] * Triglycerides (08/23/2023 3:42 AM CDT) Only [...] M.D. LAB BLOOD ADD-ON Performing Organization Address City/[facility]/ZIP Co de Phone Number [facility] [place] [address] [place] [address], [facility] [place] [address] [place] [address] * Glucose, POCT (08/22/2023 11:38 PM CDT) Glucose, POCT, B 117 70 - 140 mg/dL 08/23/2023 1:06 AM CDT PCLX Site Capillary 08/23/2023 1:06 AM CDT PCLX Last Intake NPO 08/23/2023 1:06 AM CDT PCLX Blood 08/22/2023 11:3 8 PM CDT 08/23/2023 1:06 AM CDT Unknown Provider LAB POCT ORDERABLES- MANUAL Performing Organization Address City/[facility]/ZIP Co de Phone Number [facility] [address] [place] [address], [facility] PCLX [facility] [address] [place] [address] * CT Abdomen Pelvis without IV Contrast [...] transport rates. All other fluids refer to [email or web address] for further interpretive information. This test has been modified from the leather splitter's instructions. Its performance characteristics were determined by [facility] in a manner consistent with CLIA requirements. This test has not been cleared or approved by the U.S. Food and Drug Administration. Fluid Type, Creatinine Fluid, Abdomen 08/22/2023 3:52 PM CDT DTL Fluid (Abdomen) 08/22/2023 3 :30 PM CDT 08/22/2023 6:36 PM CDT Corin Ring M.D. LAB BODY FLUIDS AND STOOLS ORDERABLES [facility] [address] [place] [address], [facility] [place] [address] [place] [address] * IR PICC Line Placement (08/22/2023 8:35 AM CDT) Anatomical Region Laterality Modality Chest, Pelvis, Abdomen, Vasc ular Interventional RST LOS, Vascular Interventional ARZ LOS, Vascular Interventional FLA LOS N/A X-Ray Angiography Impressions 08/22/2023 9:05 AM CDT Placement of a right IJ vein single-lumen 4 Bermudian tunneled PowerPICC ready for immediate use. NR [...] advanced into the IVC and a 4 Bermudian dilator advanced over the wire and attached to a one-way stopcock. A suitable exit site in the right anterior chest was anesthetized and a small incision made. A 4 Bermudian single-lumen PowerPICC was then tunneled from the [...] Wireadvanced into the IVC and a 4 Bermudian dilator advanced over the wire andattached to a one-way stopcock. A suitable exit site in the right anteriorchest was anesthetized and a small incision made. A 4 Bermudian single-lumen PowerPICC was then tunneled fromthe skin [...] of a right IJ vein single-lumen 4 Bermudian tunneled PowerPICCready for immediate use. NR Kimi [...] BLOOD ADD-ON Performing Organization Address [facility] de Phone Number [facility] [place] [address] [place] [address], [facility] DTL [facility] [address] [place] [address] * Place peripherally inserted central catheter (PICC) [...] SURGICAL ORDERABLES Performing Organization Address [facility] de Phone Number MMODAL [...] cm with transition in the right pelvis (63). Pelvic surgical drain. Bladder catheter. Similar sacral [...] and management can be found on the Patient Home Monitoringert site. Link [email or web address]/topic/clinical-[email or web address] Findings discussed with ??Tayler Greenwood, ?? ([id number]) on 08/17/2023 7:11 PM. Procedure Note Jj [...] can be found on theAskMayoExpert site. [email or web address]/topic/[email or web address]/[email or web address]/cpm [email or web address] 1725 Findings discussed with Tayler Greenwood [place] ([id number]) on 08/17/2023 7:11 PM. IMPRESSION: 1. 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 2. No acute left-sided DVT. Corin Ring M.D. IMPrieto US PROCEDURES * DX Abdomen 1 View [...] Song M.D. LAB BLOOD NON ADD-O N [facility] [address] [place] [address], [facility] [address] [place] [address] * Patient Status (08/15/2023 11:56 AM CDT) Only the most recent of2 resultswithin the time period is included. Temperature 36.2 37.0 deg C 08/15/2023 12:04 PM CDT STMA Blood 08/15/2023 11:5 6 AM CDT 08/15/2023 12:03 PM CDT Rae Gonzalez APRN, CRNA, DNAP LAB BLOO D NON ADD-ON Performing Organization Address City/[facility]/ZIP Co de Phone Number [facility] [place] [address] [place] [address] * Sodium, B (08/15/2023 11:56 AM CDT) Only the most recent of2 resultswithin the time period is included. Sodium, B 135 135 - 145 mmol/L 08/15/2023 12:06 PM CDT [facility] Blood (Blood, Arterial Line) 08/15/2023 11:56 AM CDT 08/15/2023 12:03 PM CDT Hayde Song M.D. LAB BLOOD NON ADD-O N Performing Organization Address City/[facility] Co de Phone Number [facility] [place] [address] 200 [place] [address] * (ABNORMAL) Blood Gas with Coox, Arterial [...] CENTER, [place] 200 [place] [address] * Potassium, Blood (08/15/2023 11:56 AM CDT) [...] CENTER, [place] 200 [place], [place] [phone] [place] [address] 200 [place] [address] * (ABNORMAL) Glucose, Whole Blood (08/15/2023 11:56 AM CDT) Only the most recent of2 resultswithin the time period is included. Glucose 144(H) 70 - 140 mg/dL 08/15/2023 12:06 PM CDT [facility] Blood (Blood, Arterial Line) 08/15/2023 11:56 AM CDT 08/15/2023 12:03 PM CDT Hayde Song M.D. LAB BLOOD ADD-ON Performing Organization Address City/[facility]/ZIP Co de Phone Number [facility] [place] [address] 200 [place] [address] * (ABNORMAL) Calcium, Ionized (08/15/2023 11:56 AM CDT) Only the most recent of2 resultswithin the time period is included. Pathologist [facility] Calcium, Ionized, B 4.53(L) 4.65 - 5.30 mg/dL 08/15/2023 12:07 PM CDT [facility] Blood (Blood, Arterial Line) 08/15/2023 11:56 AM CDT 08/15/2023 12:03 PM CDT Hayde Song M.D. LAB BLOOD NON ADD-O N Performing Organization Address City/[facility] Co de Phone Number [facility] [place] [address] 200 [place] [address] * AR ARTL CATH/CNULA MONITOR PERC, AR US GUIDE VASC ACCESS, LDA ANE ARTERIAL LINE INSERTION, MC ANE INVASIVE CATH WITH ULTRASOUND (08/15/2023 9:51 AM CDT) Narrative Rae Gonzalez APRN, NEGATIVE TURNER APPRENTICE, DNAP - 08/15/2023 9:51 AM CDT Rae Gonzalez APRN, NEGATIVE TURNER APPRENTICE, DNAP ? 08/15/2023 ??9:52 AM Invasive Catheter [...] ETT location: oral VL device: glide scope [facility] scope blade size: 4 Tube size: 7.5 [...] time period is included. Pathologist [facility] Bacteria/Leyla da Culture, Blood [...] Carlos Alberto Henson M.D. LAB MICROBIOLOGY - [facility] ORDERABLES [facility] [place] [address] [place] [address], [facility] [place] [address] [place] [address] * (ABNORMAL) Hepatic Function Panel (08/13/2023 5:27 PM CDT) Pathologist [facility] Bilirubin, Total, S 0.8 0.0 - 1.2 [...] Henson M.D. LAB BLOOD ADD-ON [facility] [address] [place] [address], [facility] DTL [facility] [address] [place] [address] * Interpretation of Outside CT Abdomen and [...] Advance Directives For more information, please contact: [phone] * Full Code (Latest Code Status on File) Date Activated Date Inactivated Comments 08/30/2023 10:40 PM 09/05/2023 6:15 PM Question Answer Comments Full Code: Not Discussed Due to: Patient not available * Full Code Date Activated Date Inactivated Comments 08/13/2023 4:30 PM 08/26/2023 6:58 PM Question Answer Comments Full Code: Discussed Care Teams Bung Sewer Relationship Specialty Start Date End Date Elsewhere, Pcp PCP - General Internal Medicine 08/13/23
--- OUTSIDE RECORDS SUMMARY | 2023-10-28 12:33 | XMS_ITS | Clinical Summary ---
Author Organization [facility] Address [address] [place] [address] Care Team Providers Care Airconditioning Engineer Name Role Phone Cesar Mccollum Primary Care Provider [phone] Allergies No known active allergies Medications Medication [...] this topic Medical Devices Implanted Type Area Cotton Machine Operator Device Identifier Shelf Expiration Date Model / Serial / Lot Stent Ureteral Polaris Ultra [id number] - [id number] Implanted:Qty : 1 on 02/08/2022 by Nicola Ware MD at [facility] Stent Right: Ureter [employer] [id number] 10/08/2024 [id number] Explanted Type Area Cotton Machine Operator Device Identifier Shelf Expiration Date Model / Serial / Lot Stent Came Out Of The Right Ureter Explanted:Qty: 1 on 02/08/2022 by Nicola Ware MD at [facility] Right: Urethra Advance Directives For more information, please contact: [phone] Documents on File Type Date Recorded Patient Official Court Reporter Expl anation Advance Directives and Living Will 02/17/2022 Health Care Directiv e 05/15/2021 Healthcare Agents on File Name Relationship Healthcare Agent Relationship Communication Mindy Waterman Daughter Co-First Alterna te Health Care Agent Meera Vega Spouse Health Care Agent [phone] (Home) Favio Vega Son Co-First Evangelina brock Health Care Agent Tereso Vega Son Co-First Fidencio dalton Health Care Agent Care Teams Airconditioning Engineer Relationship Specialty Start Date End Date Cesar Mccollum [address] [place] [address] PCP - General Family Medicine 11/22/22
--- OUTSIDE RECORDS SUMMARY | 2023-10-28 12:33 | XMS_ITS | Referral Summary ---
Author Organization [facility] Address [address] [place] [address] Care Team Providers Care Lever Tender Name Role Phone Cesar Mccollum Primary Care Provider [phone] Allergies No known active allergies Medications Medication [...] on file Medical Devices Implanted Type Area Burlap Spreader Device Identifier Shelf Expiration Date Model / Serial / Lot Stent Ureteral Polaris Ultra [id number] - [id number] Implanted:Qty : 1 on 02/08/2022 by Nicola Ware MD at [facility] Stent Right: U[employer]ter [employer] [id number] 10/08/2024 [id number] Explanted Type Area Burlap Spreader Device Identifier Shelf Expiration Date Model / Serial / Lot Stent Came Out Of The Right Ureter Explanted:Qty: 1 on 02/08/2022 by Nicola Ware MD at [facility] Right: Urethra Advance Directives For more information, please contact: [phone] Documents on File Type Date Recorded Patient Mica Plate Layer Hand Expl anation Advance Directives and Living Will 02/17/2022 Health Care Directiv e 05/15/2021 Healthcare Agents on File Name Relationship Healthcare Agent Relationship Communication Mindy Waterman Daughter Co-First Alterna te Health Care Agent Meera Vega Spouse Health Care Agent [phone] (Home) Favio Vega Son Co-First Altern ate Health Care Agent Tereso Vega Son Co-First Alterna te Health Care Agent Care Teams Lever Tender Relationship Specialty Start Date End Date Cesar Mccollum [address] [place] [address] PCP - General Family Medicine 11/22/22
--- OUTSIDE RECORDS SUMMARY | 2023-10-28 12:34 | XMS_ITS | Encounter Summary ---
Author Organization [facility] Address [address] [place] [address] Care Team Providers Care Chucking Machine Set Up Operator Name Role Phone Elsewhere, Pcp Primary Care Provider Unavailabl e Reason for Visit * Reason Comments Urinary Retention * Outpatient (Routine) - Closed Specialty Diagnoses / Procedures Referred By Leyla t Referred To Contact Diagnoses Hematuria Procedures URO Urethral cath change (UCC) Paula Hernandez M.D. [address] [place] [phone] [facility] Referral ID Status Reason Start Date Expiration Date Visits Re quested Visits Authorized [id number] Closed 09/15/2023 09/14/2024 1 1 Encounter Details Date Type Department Care Team (Late st Contact Info) Description 10/14/2023 1:00 PM CDT Procedure visit Department of Urology in [place], [place] [address] [place] [phone] Paula Hernandez M.D. [address] [place] [phone] Khadra Miller R.N. [address] [place] [phone] Hematuria Social History Tobacco Use Types Packs/Day [...] [facility] place to live 09/09/2023 Sex [...] encounter Miscellaneous Notes * Addendum Note - Kahdra Miller R.N. - 10/14/2023 1:00 PM CDTAddended by: KHADRA MILLER on: 10/14/2023 01:25 PM Modules accepted: Level of Service documented in this encounter Plan of Treatment Upcoming Encounters Date Type Department Care Team (Late st Contact Info) Description 11/09/2023 11:00 AM CDT Office Visit Department of Urology in [place], [place] [address] [place] [address] Burke Strauss M.D. [facility] [place] [phone] Discharge Disposition: Home or Self Care documented as of this encounter Visit Diagnoses Diagnosis Hematuria documented in this encounter Care Teams Chucking Machine Set Up Operator Relationship Specialty Start Date End Date Elsewhere, Pcp PCP - General Internal Medicine 08/13/23 documented as of this encounter
--- OUTSIDE RECORDS SUMMARY | 2023-10-28 12:34 | XMS_ITS | Encounter Summary ---
Author Organization [facility] Address [address] [place] [address] Care Team Providers Care Invasive Cardiovascular Technologist Name Role Phone Elsewhere, Pcp Primary Care Provider Unavailabl e Encounter Details Date Type Department Care Team (Late st Contact Info) Description 09/27/2023 Clinical Communication Department of Urology in [place], [place] [address] [place] [phone] Paula Hernandez M.D. [address] [place] [address] Social History Tobacco Use Types Packs/Day Years Used Date Smoking Tobacco: Never Smokeless Tobacco: Never [facility] Utilities Answer Date Recorded In the past 12 months has [employer] electric, gas, oil, or water [employer] threatened to shut off services in your [...] your living situation today? I have a [facility] place to live 09/09/2023 Sex and [...] CDT Office Visit Department of Urology in [address] [phone] Burke Strauss M.D. [facility] [place] [phone] Discharge Disposition: Home or Self Care documented as of this encounter Visit Diagnoses Not on filedocumented in this encounter Care Teams Invasive Cardiovascular Technologist Relationship Specialty Start Date End Date Elsewhere, Pcp PCP - General Internal Medicine 08/13/23 documented as of this encounter
--- OUTSIDE RECORDS SUMMARY | 2023-10-28 12:34 | XMS_ITS | Encounter Summary ---
Author Organization [facility] Address [address] [place] [address] Care Team Providers Care Periodontist Name Role Phone Elsewhere, Pcp Primary Care Provider Unavailabl e Reason for Visit * Reason Comments Catheter Care Plan Encounter Details Date Type Department Care Team (Late st Contact Info) Description 10/14/2023 Documentation Department of Urology in [place], [place] [address] [place] [phone] Paula Hernandez M.D. [address] [place] [phone] Catheter Care Plan Social History Tobacco Use Types Packs/Day Years Used Date Smoking Tobacco: Never Smokeless Tobacco: Never [facility] Utilities Answer Date Recorded In the past 12 months has [facility] electric, gas, oil, or water [...] your living situation today? I have a [facility] place to live 09/09/2023 Sex and Gender Information Value Date Recorded Sex Assigned at Not on file Gender Identity Not on file Sexual Orientation Not on file documented as of this encounter Progress Notes * Ashleigh Ferreira R.N. - 10/14/2023 2:05 PM CDT Treatment Summary and Care Plan - Catheter Exchange General Information [facility]/ Patient Name: Kalen Vega Date: 1940 Health Care Provider(s) Medical Provider(s) Cesar Mccollum M.D. Institution: No address on file [place], [place] Urology Provider(s) Chief Urology residents Last seen by Paula Hernandez M.D. Institution: [facility] Treatment Summary Diagnosis Hydronephrosis; hematuria; metastatic prostate cancer; radiation cystitis Treatment Surgery []Yes [x] No Surgery Date(s) Surgical Procedure/Location/Findings Current Treatment Information/Follow-up Care Plan Frequency of Catheter Changes (i.e. every 4 weeks) every 4 weeks Catheter Information Type: Coude red rubber Size:20F Reference #: [id number] Catheter Prescription Expires NA Last seen by [...] CDT Office Visit Department of Urology in [address] [phone] Burke Strauss M.D. [address] [place] [phone] Discharge Disposition: Home or Self Care documented as of this encounter Visit Diagnoses Not on filedocumented in this encounter Care Teams Periodontist Relationship Specialty Start Date End Date Elsewhere, Pcp PCP - General Internal Medicine 08/13/23 documented as of this encounter
--- OUTSIDE RECORDS SUMMARY | 2023-10-28 12:34 | XMS_ITS | Encounter Summary ---
Author Organization [facility] Address [address] [place] [address] Care Team Providers Care Document Control Manager Name Role Phone Elsewhere, Pcp Primary Care Provider Unavailabl e Encounter Details Date Type Department Care Team (Late st Contact Info) Description 09/21/2023 Clinical Communication Department of Urology in [place], [place] [address] [place] [address] Paula Hernandez M.D. [address] [place] [address] Social History Tobacco Use Types Packs/Day Years Used Date Smoking Tobacco: Never Smokeless Tobacco: Never [facility] Utilities Answer Date Recorded In the past 12 months has [facility] electric, gas, oil, or water [employer] threatened to shut off services in your [...] [facility] 09/09/2023 Sex and Gender Information Value Date Recorded Sex Assigned at Not on file Gender Identity Not on file Sexual Orientation Not on file documented as of this encounter Miscellaneous Notes * Telephone Encounter - Paula Hernandez M.D. - 09/21/2023 2:37 PM CDT I called the patient's [place] physician who he saw yesterday, 09/19 in [...] CDT Office Visit Department of Urology in [place], [place] [address] [place] [address] Burke Strauss M.D. [address] [place] [phone] Discharge Disposition: Home or Self Care documented as of this encounter Visit Diagnoses Not on filedocumented in this encounter Care Teams Document Control Manager Relationship Specialty Start Date End Date Elsewhere, Pcp PCP - General Internal Medicine 08/13/23 documented as of this encounter
--- OUTSIDE RECORDS SUMMARY | 2023-10-28 12:34 | XMS_ITS | Encounter Summary ---
Author Organization [facility] Address [address] [place] [address] Care Team Providers Care Medical Technologist Chemistry Name Role Phone Elsewhere, Pcp Primary Care Provider Unavailabl e Reason for Referral * Outpatient (Routine) - Authorized Specialty Diagnoses / Procedures Referred By Contac t Referred To Contact Urology Diagnoses Hematuria Paula Benton M.D. [address] [place] [address] [facility] Referral ID Status Reason Start Date Expiration Date V isits Requested Visits Authorized [id number] Authorized 09/15/2023 03/16/2025 1 1 Encounter Details Date Type Department Care Team (Late st Contact Info) Description 09/15/2023 Clinical Communication [facility] [address] [place] [address] Yasmine Loco Social History Tobacco Use Types [...] your living situation today? I have a [facility] place to live 09/09/2023 Sex and Gender Information Value Date Recorded Sex Assigned at Not on file Gender Identity Not on file Sexual Orientation Not on file documented as of this encounter Plan of Treatment Upcoming Encounters Date Type Department Care Team (Late st Contact Info) Description 11/09/2023 11:00 AM CDT Office Visit Department of Urology in [place], [place] [address] [place] [phone] [address] [facility] [place] [address] Discharge Disposition: Home or Self Care Scheduled Referrals Name Type Priority Associated Diagnoses [...] documented as of this encounter Care Teams Medical Technologist Chemistry Relationship Specialty Start Date End Date Elsewhere, Pcp PCP - General Internal Medicine 08/13/23 documented as of this encounter
--- OUTSIDE RECORDS SUMMARY | 2023-10-28 12:34 | XMS_ITS ---
Author Organization [facility] Address [address] [place] [address] Care Team Providers Care Senior Customer Service Representative Name Role Phone Unavailable Unavailable Unavailable Surgery Details Not on file Complications Check Surgery Details section. Procedure Estimated Blood Loss Check Surgery Details section. Procedure Findings Check Surgery Details section. Procedure Specimens Taken Check Surgery Details section.
--- OUTSIDE RECORDS SUMMARY | 2023-10-28 12:34 | XMS_ITS | Encounter Summary ---
Author Organization [facility] Address [address] [place] [address] Care Team Providers Care Diversified Crops Ii Farmworker Name Role Phone Elsewhere, Pcp Primary Care Provider Unavailabl e Encounter Details Date Type Department Care Team (Late st Contact Info) Description 10/27/2023 Clinical Communication Department of Urology in [place], [place] [address] [place] [phone] Burke Strauss M.D. [address] [place] [address] Social History Tobacco Use Types Packs/Day Years Used Date Smoking Tobacco: Never Smokeless Tobacco: Never [facility] Utilities Answer Date Recorded In the [...] living situation today? I have a [facility] place to live 09/09/2023 Sex and Gender Information Value Date Recorded Sex Assigned at Not on file Gender Identity Not on file Sexual Orientation Not on file documented as of this encounter Miscellaneous Notes * Telephone Encounter - Burke Strauss M.D. - 10/27/2023 5:01 PM CDT Patient has nephrostomy tubes in and will ultimately need to see a surgeon for exchange, however, Iwould be happy to see him to help establish care. * Telephone Encounter - Tayler Zaragoza C.M.A. - 10/27/2023 2:15 PM CDT Patient follows urology in [place] but would like to transfer his care to [place] as it is closer to home. It looks like for Hematuria. Is this patient ok to see you? He has a catheter in and will need cath changes going forward. documented in this encounter Plan of Treatment Upcoming Encounters Date Type Department Care Team (Late st Contact Info) Description 11/09/2023 11:00 AM CDT Office Visit Department of Urology in [place], [place] [address] [place] [phone] Burke Strauss M.D. [address] [place] [phone] Discharge Disposition: Home or Self Care documented as of this encounter Visit Diagnoses Not on filedocumented in this encounter Care Teams Diversified Crops Ii Farmworker Relationship Specialty Start Date End Date Elsewhere, Pcp PCP - General Internal Medicine 08/13/23 documented as of this encounter
--- OUTSIDE RECORDS SUMMARY | 2023-10-28 12:34 | XMS_ITS | Encounter Summary ---
Author Organization [facility] Address [address] [place] [address] Care Team Providers Care Bull Gang Worker Name Role Phone Elsewhere, Pcp Primary Care Provider Unavailabl e Reason for Visit * Reason Onset Date Comments follow up questions 09/16/2023 Encounter Details Date Type Department Care Team (Latest Contact Info) Description 09/16/2023 Clinical Communication Department of Urology in [address] [place] [address] Provider, Unknown follow up questions Social History Tobacco Use Types Packs/Day Years Used Date Smoking Tobacco: Never Smokeless Tobacco: Never [employer] Utilities Answer Date Recorded In the past 12 months has [facility] [employer], gas, oil, or water [employer] threatened to shut off services in [...] to patient's son, advised to have Mr. Veag push fluids. Patient is on a blood [...] CDT Office Visit Department of Urology in [place], [place] [address] [place] [phone] Burke Strauss M.D. 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
--- OUTSIDE RECORDS SUMMARY | 2023-10-28 12:34 | XMS_ITS | Referral Summary ---
Author Organization [facility] Address [address] [place] [address] Care Team Providers Care General Service Technician Name Role Phone Elsewhere, Pcp Primary Care Provider Unavailabl e Source Comments Patient records contain information from all sites at [facility]. For routine questions regarding patient records, call [phone] during business hours, M-F 8:00 AM - 5:00 PM Central Time. Record requests for emergency care only can be directed to [phone] at any time.[facility] Encounters Date Type Department Care Team Description 10/27/2023 Clinical Communication Department of Urology in [place], [place] [address] [place] [address] Burke Strauss M.D. 10/14/2023 Documentation Department of Urology in [place], [place] [address] [place] [phone] Paula Hernandez M.D. Catheter Care Plan 10/14/2023 1:00 PM CDT Procedure visit Department of Urology in [place], [place] [address] [place] [phone] Paula Hernandez M.D. Khadra Miller, R.N. Hematuria 09/27/2023 Clinical Communication Department of Urology in [place], [place] [address] [place] [phone] Paula Hernandez M.D. 09/21/2023 Clinical Communication Department of Urology in [place], [place] [address] [place] [phone] Paula Hernandez M.D. 09/16/2023 Clinical Communication Department of Urology in [place], [place] [address] [place] [phone] Provider, Unknown follow up questions 09/16/2023 Orders Only Department of Urology in [place], [place] [address] [place] [phone] Paula Hernandez M.D. Hematuria Gross (Primary Dx) 09/15/2023 Clinical Communication [facility] [address] [place] [phone] Yasmine Loco 09/09/2023 7:24 AM CDT - 09/15/2023 5:28 PM CDT Hospital Encounter [facility] [place] Floor [address] [place] [phone] Gerri Merrill M.D., Ph.D. Sumit Holbrook M.D. Hematuria (Primary Dx) Discharge Disposition: Home or Self Care 09/09/2023 12:10 PM CDT Ancillary Procedure Department of Nursing 09/09/2023 Documentation Department of Urology in [place], [place] [address] [place] [phone] Ko Victoria M.D. 09/06/2023 Orders Only Section of Hyperbaric Medicine in [place], [place] [address] [place] [phone] Kira Ferraro APRN, C.N.P., M.S.N. 09/06/2023 Clinical Communication [facility] [address] [place] [phone] Yasmine Loco 08/30/2023 7:35 PM CDT - 09/05/2023 4:09 PM CDT Hospital Encounter [facility] [place], First Floor [address] [place] [phone] Kirstin Hughes M.D. Thompson, R. [place], M.D. Hematuria (Primary Dx); Tachycardia; Hematuria Gross Discharge Disposition: Home-Health Care [facility] 09/01/2023 10:05 AM CDT Ancillary Procedure Department of Nursing 08/31/2023 12:25 PM CDT Ancillary Procedure Department of General Surgery 08/31/2023 12:34 PM CDT Anesthesia Event [facility] [address] [place] [phone] Joe Stoll M.D. Gran, Terry L, APRN, GAVIN 08/31/2023 12:36 PM CDT - 08/31/2023 2:31 PM CDT Surgery [facility] [address] [place] [phone] Mayur Alvarez M.D. CYSTOSCOPY EVACUATION CLOTS 08/30/2023 Documentation Department of Urology in [place], [place] [address] [place] [phone] Corin Ring M.D. 08/30/2023 Intake [facility] 08/26/2023 Orders Only Department of Urology in [place] [phone] [place] [phone] Paula Hernandez M.D. 08/13/2023 3:42 PM CDT - 08/26/2023 4:11 PM CDT Hospital Encounter [facility] [place] Sixth Floor [address] [place] [phone] Darnell Garcia M.D. Chow, George K, M.D. Decline Functional Status [R53.81] (Primary Dx); Hematuria [R31.9] Discharge Disposition: Home or Self Care 08/23/2023 12:45 AM CDT Ancillary Procedure Department of Nursing 08/15/2023 8:30 AM CDT Anesthesia Event [facility] [address] [place] [phone] Hayde Song M.D. 08/15/2023 7:55 AM CDT - 08/15/2023 11:23 AM CDT Surgery [facility] [address] [place] [phone] Boubacar Brock M.D. Palliative EXPLORATORY LAPAROTOMY, CYSTOTOMY CLOSURE, RIGHT URETERAL STENT EXCHANGE 08/13/2023 4:35 PM CDT Ancillary Procedure Department of Radiology in [place], [place] [address] [place] [phone] Carlos Alberto Henson M.D. 08/13/2023 Intake RST [...] Tobacco: Never Tobacco Cessation:Counseling Given: Not Answered [facility] Utilities Answer Date Recorded In the past 12 months has [facility] [employer], gas, oil, or water [employer] threatened to shut off services in your [...] [facility] live 09/09/2023 Sex and [...] CDT Office Visit Department of Urology in [place], [place] [address] [place] [phone] Burke Strauss M.D. [address] [place] [phone] Discharge Disposition: Home or Self Care Medical Devices Implanted Type Area Tree Trimmer Device Identifier Shelf Expiration Date Model / Serial / Lot Clp Hrzn Ti 6 Clp Lg Orng - [id number] Implanted:Qt y: 1 on 08/15/2023 by Boubacar Brock M.D. at [facility] Hardware e.g. pins/screws /rods [employer]dom[employer] [id number] 02/29/2028 [id number] / / [id number] Clp Hrzn Ti 6 Clp Lg Orng - [id number] Implanted:Qt y: 1 on 08/15/2023 by Boubacar Brock M.D. at [facility] Hardware e.g. pins/screws /rods [employer]dom[employer] [id number] 02/29/2028 [id number] / / [id number] 4 Clp Hrzn Ti 6 Clp Md Monty - [id number] Implanted:Qt y: 1 on 08/15/2023 by Boubacar Brock M.D. at [facility] Hardware e.g. pins/screws /rods [employer]dom[employer] [id number] 03/13/2028 [id number] / / [id number] 1 Clp Hrzn Ti 6 Clp Md Monty - [id number] Implanted:Qt y: 1 on 08/15/2023 by Boubacar Brock M.D. at [facility] Hardware e.g. pins/screws /rods Abdom[employer] [id number] 03/21/2028 [id number] / / [id number] 3 Stnt Uret Inl 6fx24 - [id number] Implanted:Qt y: 1 on 08/15/2023 by Jakob De Paz M.D. at [facility] Ureteral Stent N/A: Ureter [employer] [id number] 11/18/2027 [id number] / / [id number] Procedures Procedure Name Priority Date/Time Associated Diagnosis [...] M.D. LAB BLOOD ADD-ON Performing Organization Address [facility] Co de Phone Number [facility] [address] [place], [place] [address] [place] [address] * Heparin Anti-Xa Assay (09/14/2023 3:19 AM [...] LAB BLOOD NON ADD-ON Performing Organization Address City/[facility]/ZIP Co de Phone Number [facility] [address] [place] [address], [facility] [address] [place] [address] * IR Nephrostomy Tube Placement Left (09/13/2023 [...] Lankan percutaneous nephrostomy tube placement. EP Latisha CHOUDHARY IR PROCEDURE S * Bacterial Culture, Aerobic + Susceptibility (09/13/2023 2:17 PM CDT) Bacterial Culture, Aerobic + Susc No growth after 5 days of incubation. 09/18/2023 12:35 PM CDT DTL Fluid (Kidney, Left) 09/13/2023 2:17 PM CDT 09/13/2023 3:56 PM CDT Comment:Specimen Source Site : Fluid Latisha Whitehead M.D. LAB MICROBIOLOGY - GENERAL ORDERABLES [facility] [address] [place] [address], [facility] [address] [place] [address] * Gram Stain (09/13/2023 2:17 PM CDT) Gram Stain No organisms seen. White blood cells, Rare 09/13/2023 9:02 PM CDT DTL Fluid (Kidney, Left) 09/13/2023 2:17 PM CDT 09/13/2023 3:56 PM CDT Comment:Specimen Source Site : Fluid Latisha Whitehead M.D. LAB MICROBIOLOGY - GENERAL ORDERABLES Performing Organization Address City/[facility]/ZIP Co de Phone Number [facility] [address] [place] [address], [facility] [address] [place] [address] * Fungal Culture, Routine (09/13/2023 2:17 PM CDT) Fungal Culture, Routine No growth after 24 days of incubation. 10/08/2023 1:02 AM CDT DTL Fluid (Kidney, Left) 09/13/2023 2:17 PM CDT 09/13/2023 3:56 PM CDT Comment:Specimen Source Site : Fluid Latisha Whitehead M.D. LAB MICROBIOLOGY - GENERAL ORDERABLES [facility] [address] [place] [address], [facility] [address] [place] [address] * Bacterial Culture, Anaerobic + Susceptibility (09/13/2023 2:17 PM CDT) [facility] Bacterial Culture, Anaerobic + Susc No growth after 14 days of incubation. 09/27/2023 8:04 AM CDT DTL Fluid (Kidney, Left) 09/13/2023 2:17 PM CDT 09/13/2023 3:56 PM CDT Comment:Specimen Source Site : Fluid Latisha Whitehead M.D. LAB MICROBIOLOGY - GENERAL ORDERABLES Performing Organization Address [facility] Co de Phone Number [facility] [address] [place] [address] * APTT (Activated Partial Thromboplastin Time) (09/13/2023 5:56 AM CDT) Only the most recent of18 resultswithin the time period is included. [facility] Activated Partial Thrombopl Time, P 35 25 - 37 sec 09/13/2023 7:14 AM CDT DT Blood (Blood, Venous) 09/13/2023 5:56 AM CDT 09/13/2023 6:53 AM CDT Sumit Holbrook M.D. LAB BLOOD ADD-ON Performing Organization Address City/[facility]/ZIP Co de Phone Number [facility] [address] [address] * (ABNORMAL) Basic Metabolic Panel (09/13/2023 5:56 AM CDT) Only the most recent of14 resultswithin the time period is included. [facility] Potassium, S 3.7 3.6 - 5.2 [...] CDT Paula Hernandez M.D. LAB BLOOD ADD-ON [address] [address], [facility] [address] [address] * NM Kidney DMSA (09/12/2023 12:21 PM [...] reduced radiotracer uptake asdescribed. Js Yang M.D. G NM PROCEDURES * Transfuse Red Blood Cells [...] RAD IMAGI NG PROCEDURES Performing Organization Address [facility] Co de Phone Number [facility] NA * Osmolality, Urine (09/09/2023 11:28 AM CDT) Only the most recent of2 resultswithin the time period is included. Osmolality, U 380 150 - 1150 mOsm/kg 09/09/2023 12:19 PM CDT DTL Urine 09/09/2023 11:2 8 AM CDT 09/09/2023 11:58 AM CDT Jeffery Church M.D. LAB URINE ORDERA BLES Performing Organization Address City/[facility]/ZIP Co de Phone Number [facility] [address] [place] [address] * (ABNORMAL) Dipstick, Urine (09/09/2023 11:28 AM [...] LAB URINE ORDERA SHELLY Performing Organization Address [facility] Co de Phone Number [facility] [address] [place] [address] * pH, Random, Urine (09/09/2023 11:28 AM CDT) Only the most recent of2 resultswithin the time period is included. pH, Random, U 6.3 4.5 - 8.0 09/09/2023 12:19 PM CDT DTL Urine 09/09/2023 11:2 8 AM CDT 09/09/2023 11:58 AM CDT Jeffery Church M.D. LAB URINE ORDERA BLES Performing Organization Address City/[facility]/ZIP Co de Phone Number [facility] [address] [facility] [address] [place] [address] * (ABNORMAL) Microscopic Manual (09/09/2023 11:28 AM [...] Jeffery Church M.D. LAB URINE STEFFANY BRAVO [facility] [address] [place] [address], [facility] [address] [place] [address] * (ABNORMAL) Bacterial Culture, Aerobic + Susceptibility, [...] Church M.D. LAB MICROBIOLOGY - GENERAL ORDERABLES [facility] [address] [place] [address], [facility] [address] [place] [address] * (ABNORMAL) Gram Stain, Urine (09/09/2023 11:28 AM CDT) Source Urine, Urine, Straight Catheter 09/09/2023 11:58 AM CDT DTL Gram Stain, U Positive(A) Negative 09/09/2023 12:16 PM CDT DTL Comment: Few Gram-negative bacilli ? Yeast Urine 09/09/2023 11:2 8 AM CDT 09/09/2023 11:58 AM CDT Jeffery Church M.D. LAB URINE ORDERA BLEBryon Performing Organization Address [facility] Co de Phone Number [facility] [address] [place] [address], [facility] DTL [facility] [address] [place] [address] * (ABNORMAL) Urinalysis, with Microscopic: Urine, Straight [...] 09/09/2023 1:02 PM CDT DTL Predicted Range 2480-79734 mg/24 h 09/09/2023 1:02 PM CDT DTL Comment Micro done on <2.5 mL 09/09/2023 12:27 PM CDT DTL Urine (Urine, Straight Catheter) 09/09/2023 11:28 AM CDT 09/09/2023 11:58 AM CDT Jeffery Church M.D. LAB URINE STEFFANY BRAVO Performing Organization Address [facility]/ZIP Co de Phone Number [facility] [address] [place] [place] [address] [address] [place] [address] * US Kidneys Bilateral with Bladder (09/09/2023 [...] time period is included. Pathologist [facility] Prothrombin Time, P 12.5 9.4 - 12.5 sec 09/09/2023 8:14 AM CDT STMA INR 1.1 0.9 - 1.1 09/09/2023 8:14 AM CDT [facility] Comment: ----ADDITIONAL INFORMATION---- Standard intensity warfarin therapeutic range: 2.0 to 3.0 ?? High intensity warfarin therapeutic range: 2.5 to 3.5 Blood (Blood, Venous) 09/09/2023 8:04 AM CDT 09/09/2023 8:08 AM CDT Jeffery Church M.D. LAB BLOOD ADD-ON [address] [address], [facility] [address] [place] [address] * (ABNORMAL) CBC with Differential, Blood (09/09/2023 [...] CDT Jeffery Church M.D. LAB BLOOD ADD-ON [facility] [address] [place] [address], [facility] STMA [facility] [address] [place] [address] DHPM [facility] [address] [place] [address] * Type and Screen (with Reflex Antibody [...] BANK T EST ORDERABLES Performing Organization Address [facility] Co de Phone Number [facility] [address] STRM [facility] [address] [place] [address] * Potassium (09/05/2023 4:56 AM CDT) Only the most recent of2 resultswithin the time period is included. Potassium, S 3.6 3.6 - 5.2 mmol/L 09/05/2023 5:49 AM CDT DTL Blood (Blood, Venous) 09/05/2023 4:56 AM CDT 09/05/2023 5:22 AM CDT Roxy Romero M.D. LAB BLOOD ADD-ON Performing Organization Address [facility] Co de Phone Number [facility] [address] [place] [address], [facility] [address] [place] [address] * FL Fluoro Less Than 1 Hour [...] M.D. IMG FLUOROSCOPY PROCEDURES Performing Organization Address City/[facility]/ZIP Co de Phone Number 152 HOS [...] in the bladder lumen. Paula Hernandez M.D. [facility] CT PROCEDURES * (ABNORMAL) Hemoglobin (08/31/2023 4:21 AM CDT) Hemoglobin 7.8(L) 13.2 - 16.6 g/dL 08/31/2023 4:47 AM CDT DTL Blood (Blood, Venous) 08/31/2023 4:21 AM CDT 08/31/2023 4:35 AM CDT Kimi Vieira M.D., M.S. LAB BLOO D ADD-ON [facility] [address] DTL [facility] [address] [place] [address] * Lactate (08/30/2023 9:50 PM CDT) Lactate, P 1.8 0.5 - 2.2 mmol/L 08/30/2023 10:09 PM CDT STMA Blood (Blood, Venous) 08/30/2023 9:50 PM CDT 08/30/2023 9:55 PM CDT Shannan Correa D.O., M.H.A. LAB BLOOD NON ADD-ON Performing Organization Address City/[facility] Co de Phone Number [facility] [address] [place] [address], [facility] STMA [facility] [address] [place] [address] * DX Chest AP or PA and [...] MUSE QTC Interval 403 ms MUSE P [place] 44 degrees MUSE R [place] 9 degrees MUSE T Wave [place] -76 degrees MUSE 08/30/2023 7:44 PM CDT [...] Brock M.D. LAB BLOOD ADD-ON [facility] [address] [place] [address], [facility] [address] [place] [address] * Magnesium (08/26/2023 3:20 AM CDT) Only the most recent of6 resultswithin the time period is included. Magnesium, S 2.1 1.7 - 2.3 mg/dL 08/26/2023 4:04 AM CDT DT Blood (Blood, Venous) 08/26/2023 3:20 AM CDT 08/26/2023 3:50 AM CDT Boubacar Brock M.D. LAB BLOOD ADD-ON Performing Organization Address City/[facility]/ZIP Co de Phone Number [facility] [address] [place] [address], [facility] [address] [place] [address] * (ABNORMAL) Phosphorus Inorganic (08/23/2023 9:58 PM CDT) Only the most recent of2 resultswithin the time period is included. Phosphorus (Inorganic), S 2.1(L) 2.5 - 4.5 mg/dL 08/23/2023 10:45 PM CDT DT Blood (Blood, Venous) 08/23/2023 9:58 PM CDT 08/23/2023 10:30 PM CDT Paula Hernandez M.D. LAB BLOOD ADD-ON Performing Organization Address City/[facility]/ZIP Co de Phone Number [facility] [address] [place] [address], [facility] [address] [place] [address] * Triglycerides (08/23/2023 3:42 AM CDT) Only [...] CDT Boubacar Brock M.D. LAB BLOOD ADD-ON [facility] [address] [place] [address], [facility] DTL [facility] [address] [place] [address] * Glucose, POCT (08/22/2023 11:38 PM CDT) [facility] Glucose, POCT, B 117 70 - 140 mg/dL 08/23/2023 1:06 AM CDT PCLX Site Capillary 08/23/2023 1:06 AM CDT PCLX Last Intake NPO 08/23/2023 1:06 AM CDT PCLX Blood 08/22/2023 11:3 8 PM CDT 08/23/2023 1:06 AM CDT Unknown Provider LAB POCT ORDERABLES- MANUAL Performing Organization Address [facility]/ZIP Co de Phone Number POC [facility] [address] [place] [address], [facility] PCLX [facility] [address] [place] [address] * CT Abdomen Pelvis without IV Contrast [...] colon likelyrepresenting mild proctocolitis. Paula Hernandez M.D. [facility] CT PROCEDURES * Creatinine, Body Fluid (08/22/2023 [...] transport rates. All other fluids refer to www.Social Points.Ketera for further interpretive information. This test has been modified from the siding installer's instructions. Its performance characteristics were determined by [facility] in a manner consistent with CLIA requirements. This test has not been cleared or approved by the U.S. Food and Drug Administration. Fluid Type, Creatinine Fluid, Abdomen 08/22/2023 3:52 PM CDT DTL Fluid (Abdomen) 08/22/2023 3 :30 PM CDT 08/22/2023 6:36 PM CDT Corin Ring M.D. LAB BODY FLUIDS AND STOOLS ORDERABLES [address] [address], [facility] [place] [address] * IR PICC Line Placement (08/22/2023 8:35 AM CDT) Anatomical Region Laterality Modality Chest, Pelvis, Abdomen, Vasc ular Interventional RST LOS, Vascular Interventional ARZ LOS, Vascular Interventional FLA LOS N/A X-Ray Angiography Impressions 08/22/2023 9:05 AM CDT Placement of a right IJ vein single-lumen 4 Sri Lankan tunneled PowerPICC ready for immediate use. NR [...] advanced into the IVC and a 4 [place]ankan dilator advanced over the wire and attached to a one-way stopcock. A suitable exit site in the right anterior chest was anesthetized and a small incision made. A 4 [place] single-lumen PowerPICC was then tunneled from the [...] Wireadvanced into the IVC and a 4 [place]an dilator advanced over the wire andattached to a one-way stopcock. A suitable exit site in the right anteriorchest was anesthetized and a small incision made. A 4 [place] single-lumen PowerPICC was then tunneled fromthe skin [...] of a right IJ vein single-lumen 4 [place]ankan tunneled PowerPICCready for immediate use. NR Kimi [...] CDT Latisha Whitehead M.D. LAB BLOOD ADD-ON [facility] [address] [place] [address], [facility] DTL [facility] [address] [place] [address] * Place peripherally inserted central catheter (PICC) [...] M.D. PROCEDURE/MINOR SURGICAL ORDERABLES Performing Organization Address [facility] de Phone Number MMODAL [...] the atrophic right kidney. Lizette Harvey M.D. [facility] CT PROCEDUR ES * US Lower Extremity [...] and management can be found on the Jooce site. Link [email or web address]/topic/clinical-answers/[email or web address]/[email or web address] [address] Findings discussed with ??Tayler Greenwood, ?? ([id number]) on 08/17/2023 7:11 PM. Procedure Note Jj [...] thrombosis and management can be found on theAskNight ZookeeperExpert site. [email or web address]/[email or web address]/[email or web address]/cpm -[email or web address] 1725 Findings discussed with Tayler Greenwood MD ([id number]) on 08/17/2023 7:11 PM. IMPRESSION: 1. Aging, [...] time period is included. Pathologist [facility] Lactate, B 1.1 0.5 - 2.2 mmol/L 08/15/2023 12:06 PM CDT STMA Blood (Blood, Venous) 08/15/2023 11:56 AM CDT 08/15/2023 12:03 PM CDT Hayde Song M.D. LAB BLOOD NON ADD-O N Performing Organization Address City/[facility]/ZIP Co de Phone Number [facility] [address] [place] [address] * Patient Status (08/15/2023 11:56 AM CDT) Only the most recent of2 resultswithin the time period is included. [facility] Temperature 36.2 37.0 deg C 08/15/2023 12:04 PM CDT STMA Blood 08/15/2023 11:5 6 AM CDT 08/15/2023 12:03 PM CDT Rae Gonzalez REEFER TRUCK DRIVER, DIRECTOR CORPORATE SECURITY, DNAP LAB BLOO D NON ADD-ON Performing Organization Address City/[facility]/ZIP Co de Phone Number [facility] [address] [place] [address], [facility] [address] [place] [address] * Sodium, B (08/15/2023 11:56 AM CDT) Only the most recent of2 resultswithin the time period is included. Pathologist [facility] Sodium, B 135 135 - 145 mmol/L 08/15/2023 12:06 PM CDT STMA Blood (Blood, Arterial Line) 08/15/2023 11:56 AM CDT 08/15/2023 12:03 PM CDT Hayde Song M.D. LAB BLOOD NON ADD-O N [facility] [address] [place] [address], [facility] STMA [facility] [address] [place] [address] * (ABNORMAL) Blood Gas with Coox, Arterial [...] BLOOD NON ADD-O N Performing Organization Address City/[facility]/ZIP Co de Phone Number [facility] [address] [place] [address], [facility] [address] [place] [address] * Potassium, Blood (08/15/2023 11:56 AM CDT) Only the most recent of2 resultswithin the time period is included. Potassium, B 4.3 3.6 - 5.2 mmol/L 08/15/2023 12:07 PM CDT STMA Blood (Blood, Arterial Line) 08/15/2023 11:56 AM CDT 08/15/2023 12:03 PM CDT Hayde Song M.D. LAB BLOOD NON ADD-O N Performing Organization Address [facility] Co de Phone Number [facility] [address] [place] [address], [facility] [address] [place] [address] * (ABNORMAL) Glucose, Whole Blood (08/15/2023 11:56 AM CDT) Only the most recent of2 resultswithin the time period is included. Glucose 144(H) 70 - 140 mg/dL 08/15/2023 12:06 PM CDT STMA Blood (Blood, Arterial Line) 08/15/2023 11:56 AM CDT 08/15/2023 12:03 PM CDT Hayde Song M.D. LAB BLOOD ADD-ON Performing Organization Address City/[facility]/ZIP Co de Phone Number [facility] [address] [place] [address], [facility] [address] [place] [address] * (ABNORMAL) Calcium, Ionized (08/15/2023 11:56 AM CDT) Only the most recent of2 resultswithin the time period is included. Calcium, Ionized, B 4.53(L) 4.65 - 5.30 mg/dL 08/15/2023 12:07 PM CDT STMA Blood (Blood, Arterial Line) 08/15/2023 11:56 AM CDT 08/15/2023 12:03 PM CDT Hayde Song M.D. LAB BLOOD NON ADD-O N [facility] [address] [place] [address], [facility] [address] [place] [address] * [place] ART[place] CATH/CNULA MONITOR [place], [place] [...] ETT location: oral VL device: glide scope [employer] scope blade size: 4 Tube size: 7.5 [...] CDT Comment:Specimen Source Site : Blood Narrative [facility] - 08/20/2023 6:02 AM CDT Received Bactec aerobic and Bactec anaerobic bottles Carlos Alberto Henson M.D. LAB MICROBIOLOGY - G ENERAL ORDERABLES Performing Organization Address City/[facility]/ZIP Co de Phone Number [facility] [address] [place], [place] [id number] [place] [address] [facility] [address] [place] [address] * (ABNORMAL) Hepatic Function Panel (08/13/2023 5:27 [...] Carlos Alberto Henson M.D. LAB BLOOD ADD-ON [facility] [address] [place] [address], [facility] [address] [place] [address] * Interpretation of Outside CT Abdomen and [...] System IMG CT PROCEDURES Performing Organization Address City/State/[facility] Co de Phone Number [facility] NA from Last 3 Months Advance Directives For more information, please contact: [phone] * Full Code (Latest Code Status on File) Date Activated Date Inactivated Comments 08/30/2023 10:40 PM 09/05/2023 6:15 PM Question Answer Comments Full Code: Not Discussed Due to: Patient not available * Full Code Date Activated Date Inactivated Comments 08/13/2023 4:30 PM 08/26/2023 6:58 PM Question Answer Comments Full Code: Discussed Care Teams General Service Technician Relationship Specialty Start Date End Date Elsewhere, Pcp PCP - General Internal Medicine 08/13/23
--- OUTSIDE RECORDS SUMMARY | 2023-10-28 12:34 | XMS_ITS | Encounter Summary ---
Author Organization [facility] Address [address] [place] [address] Care Team Providers Care Bait Digger Name Role Phone Elsewhere, Pcp Primary Care Provider Unavailabl e Reason for Referral * Outpatient (Routine) - Authorized Specialty Diagnoses / Procedures Referred By Contac t Referred To Contact Diagnoses Hematuria Gross Procedures DX Chest AP or PA and Lateral 2 Views Paula Hernandez M.D. [address] [place] [address] [facility] Referral ID Status Reason Start Date Expiration Date V isits Requested Visits Authorized [id number] Authorized 09/16/2023 09/15/2024 1 1 Encounter Details Date Type Department Care Team (Late st Contact Info) Description 09/16/2023 Orders Only Department of Urology in [place], [place] [address] [place] [phone] Paula Hernandez M.D. [address] [place] [phone] Hematuria Gross (Primary Dx) Social History Tobacco [...] your living situation today? [facility] 09/09/2023 Sex and Gender Information Value Date Recorded Sex Assigned at Not on file Gender Identity Not on file Sexual Orientation Not on file documented as of this encounter Plan of Treatment Upcoming Encounters Date Type Department Care Team (Late st Contact Info) Description 11/09/2023 11:00 AM CDT Office Visit Department of Urology in [place], [place] [address] [place] [address] Burke Strauss M.D. [address] [place] [address] Discharge Disposition: Home or Self Care Scheduled Orders Name Type Priority Associated Diagnoses [...] documented as of this encounter Care Teams Bait Digger Relationship Specialty Start Date End Date Elsewhere, Pcp PCP - General Internal Medicine 08/13/23 documented as of this encounter
--- OUTSIDE RECORDS SUMMARY | 2023-10-28 12:34 | XMS_ITS ---
Author Organization [facility] Address [address] [place] [address] Care Team Providers Care Facilities Maintenance Engineer Name Role Phone Elsewhere, Pcp Primary [...] On Elapsed Days Session Dose Total Dose [id number] 04/28/2020 32 300 cGy 6,000 cGy Lifetime Dose Tracking * Chemical Lifetime Dose Automatic Entry Manual Entr y Radiation 20.4 mGy 20.4 mGy 0 mGy Fluoro Time 2.005 minutes 2.005 minutes 0 minutes DAP (uGy-m2) 479.6 uGy-m2 479.6 uGy-m2 0 uGy-m2
--- OUTSIDE RECORDS SUMMARY | 2023-10-28 12:35 | XMS_ITS | Encounter Summary ---
Author Organization [facility] Address [address] [place] [address] Care Team Providers Care Community Health Coordinator Name Role Phone Elsewhere, Pcp Primary Care Provider Unavailabl e Reason for Visit * Reason Comments Urinary Problem Rapid Heart Rate Encounter Details Date Type Department Care Team (Latest Contact Info) Description 08/30/2023 7:35 PM CDT - 09/05/2023 4:09 PM CDT Hospital Encounter [facility], [facility], [facility], First Floor [address] [place] [address] Kirstin Hughes M.D. [address] [place] [phone] Mayur Alvarez M.D. [address] [place] [phone] Hematuria (Primary Dx); Tachycardia; Hematuria Gross Discharge [...] your living situation today? I have a [facility] place to live 09/05/2023 Sex and [...] CDT DISCHARGE SUMMARY BRIEF OVERVIEW Hospital: [facility] Discharge Provider: Mayur Alvarez M.D. Primary Team: [facility] Urology Surgery - Chief Helga [...] CYSTOGRAM Mayur Alvarez M.D.White, Lindsay A, M.D. [facility] ROMB OR DISCHARGE DISPOSITION Home-Health Care [facility] [6] ACTIVE ISSUES REQUIRING FOLLOW [...] CONSULT TO CARE MANAGEMENT IP CONSULT TO CHAIR CAR DRIVER WOUND CARE IP CONSULT TO HYPERBARIC MEDICINE CONDITION AT DISCHARGE improved Discharge instructions were provided to the patient and caregiver(s). documented in this encounter Discharge Instructions * Patient Instructions* Carmen Louis, R.N. - 08/31/2023 9:44 AM CDT The Senior LinkAge Line?? is a service of the [place] Board on Aging in partnership with [facility] Agencies on Aging. It is a free service of the [facility] that connects older [place]ians and their families with the help they need. Call the Senior LinkAge Line?? at: 324.965.1566 M-F, 8am-4:30pm to connect with specialists that are available to assist you with your specific needsor check out their website at https://[email or web address] * Attachments The following attachments cannot be sent through Care Everywhere. * Cefdinir (By mouth) (Israeli) documented in this encounter Medications at Time [...] questions or concerns. Pager during business hours: [phone] Pager after hours: [phone] * Jeffery Valdez M.D. - 09/04/2023 10:34 [...] questions or concerns. Pager during business hours: [phone] Pager after hours: [phone] * Jeffery Valdez M.D. - 09/03/2023 4:10 [...] [facility]: Diet: Regular Activity: [...] questions or concerns. Pager during business hours: [phone] Pager after hours: [phone] * Paula Hernandez M.D. - 09/02/2023 6:25 [...] questions or concerns. Pager during business hours: [phone] Pager after hours: [phone] * Michelle Willams R.N., C.W.C.N. - 09/01/2023 11:43 AM CDT [facility] Wound RN consulted to assess [...] Secondary Dressing Status Clean;Dry;Intact Changed by Wound lay out technician Ongoing management Nursing;Wound/supervisor electronic testing Urine Assessment Urine Color Colorless Hematuria Scale Bay Urine Appearance Clear;Sediment Head to toe skin [...] update the patient. Son stated that a Painter Plate visited the home and will be trying to assist both and patient with cares/coordination. OBJECTIVE Patient is located on [facility] room 111. Referrals were sent to the following agencies: Home Medical Care - Admitted Since 08/30/2023 Service Provider Request Status Selected Services Address Phone Fax Patient Preferred [facility] [place] Pending - Request Sent N/A [address] [facility] [phone] -- [facility] Pending - Request Sent N/A [address] [facility] [address], [facility] [address] -- Home Health Care Pending - Request Sent N/A [address] [facility] [address] [address] -- [facility] Pending - Request Sent N/A [address] [facility] [phone] -- [facility] Pending - Request Sent N/A [address] [facility] [phone] -- [facility] Pending - Request Sent N/A [address] [facility] [address] [phone] -- [facility] Declined Facility Full N/A [address] [facility] [phone] -- ASSESSMENT / PLAN ASSESSMENT Contracting Executive attempted to contact patient on room phone but was unable to get through. Case Manageras able to reach his son who will update that patient that the preferred home health agency was unable to accept and that referrals would be sent to other home health agencies. Requested services arenursing for wound care and catheter and PT/OT. PLAN Contracting Executive will follow up with referrals. Case Manger [...] questions or concerns. Pager during business hours: [phone] Pager after hours: [phone] * Paula Hernandez M.D. - 08/31/2023 10:45 [...] risks associated with surgery and anesthesia including WI, stroke, and VTE were also discussed. Finally, [...] questions or concerns. Pager during business hours: [phone] Pager after hours: [phone] Associated attestation - Mayur Alvarez M.D. - 08/31/2023 12:14 PM CDT I agree with the Urology Chief Service plan for palliative cystoscopy under anesthesia, clot evacuation, proceed as indicated. We will plan for judicious irrigation given his recent bladder surgery and we will perform a cystogram at the end of the procedure. * Demarco Salazar, PharmJonahD., R.Ph., [facility] - 08/31/2023 7:19 AM CDT Images from [...] discontinuation of antibiotics. Pedrito Salazar Pharm.D., R.Ph., [facility] Admission Medication History Note Adherence issues: No [...] Complete Set By: Demarco Salazar Pharm.D., R.Ph., [facility] at 08/31/2023 7:22 AM Taking? [...] an 83 y.o. male transferred to the [facility] ED for further management of [...] for CBI. He was then transferred to [facility] on 08/12; a CT cystogram [...] was initiated on CBI and transferred to [facility] for further management. On my [...] for radiation proctitis SOCIAL HISTORY Lives in [place], [place] OBJECTIVE Vitals Blood pressure 134/84, pulse [...] & Screen Expiration 09/02/2023 23:59 Testing Location [place] Imagin08/30/23 EXAM: US URINARY BLADDER COMPARISON: CT [...] hematuria, clot obstruction and was transferred to [facility] for further evaluation and management. Urinary bladder ultrasound showing 5 cm clot burden; catheter draining on fast-rate CBI after multiple rounds of hand irrigation. Plan - Continue CBI - Q2h hr hand irrigations - NPO overnight pending am re-evaluation - Hold Plavix, Xarelto for now The above was discussed with Drs. Venegas and Lefty, the chief urology residents vice president of instruction. Please page chief Urology [place] [phone] [place] [phone] afterhours. documented in this encounter Procedure Notes [...] androgen deprivation therapy. 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 No scuba diving experience. Electronic health [...] prolonged inpatient stay, would request transfer to [facility] prior to initiation of hyperbaric [...] Early Screen for Discharge Planning Referral Name: [facility] 11 Referral Reason: Discharge Planning Primary Language: Israeli Envelope Folder Services Used: No Person(s) present during interview: [...] Communication: Can write, Talks, Understands speaking, Understands Israeli, Reads Shopping: Needs assistance Medication Management: Independent Housekeeping: Needs assistance Meal Prep: Independent Assistive Devices: Walker - front wheeled, Eyeglasses, Hearing aid(s) Agency Name: [facility] Provided: Intermediate/PT/OT Transportation: Support from family Baseline Services/Resources Primary care clinic and provider: ELSEWHERE, PCP Additional Resources: N/A Anticipated Needs Functional Status: Housekeeping, Shopping, Transportation use (drive car, use taxi/bus), Mobility, Transfer to/from bed, chair, etc., Bathing Assistive Devices: Eyeglasses, Hearing aid(s), Walker - front wheeled Services/Resources: Home health Agency Name: [facility] Provided: Intermediate/PT/OT Anticipated Modifications to the Patient's Home: None Transportation Needs: Support from family Does the patient need discharge transport arranged?: No Anticipated Discharge Destination: Home-Health Care [facility] ASSESSMENT / PLAN Assessment: The turner off met with Kalen Vega to discuss his current hospitalization and home goingneeds. The patient was accompanied by son, Kar . The patient was a reliable historian. The role ofRN Contracting Executive was reviewed. The patient reviewed his prior level of care and support system. The patient receives support from his and children. The patient described his living environment as a home with bedroom and bathroom on same floor withstairs to enter with rails. Housekeeping, grocery shopping, meal prep, and other household responsibilities have previously been completed by patient and patient's son. turner off discussed the patient's potential needs at dismissal based on their home setting, previous needs and responsibilities, homebound status, and relevant assessments with the patient. The patient will be safe and supported to return home with [facility] or previous services noted above [...] [facility] care. Patient stated that [employer] was supposed to be set- up at discharge after the last hospital stay but that the company never received orders to start care and that he was told by nursing that due to his PICC removal he would not need care. Contracting Executive will clarifywith home health team regarding if [...] chart and meeting with the patient, the turner off deemed the LACE+/readmission questions were appropriate. The [...] current readmission could have been prevented. The turner off will share this information with the care team. The patient reports understanding that he will dismiss from the hospital when medically stable. Thefollowing potential barriers to dismissal have been identified: Home Health Care Addendum 1230: Contracting Executive called [facility]. They received the referral but declined due to being at capacity. Plan: The patient agrees with the following plan. Patient's anticipated discharge disposition is: Home with Home Healthcare Referrals sent. Transportation upon dismissal will be provided by family--Kar . turner off recommended home health services. turner off provided information regarding the dismissal process and the Senior Linkage Line ([place] Board on Aging) handout. turner off placed or requested the following hospital-based consult orders and/or referrals: None. turner off will follow up with the patient to [...] with updates and/or transition plan to come. turner off encouraged the patient to reach out with [...] CDT Pre-op Diagnosis Hematuria Post-op Diagnosis Hematuria Quantitative Analyst A insurance underwriting assistant actively participated and was necessary for [...] or filling defects. 5. Placement of [address] with 20 cc in [...] The resectoscope was removed and a [address] catheter was placed with 20 [...] secondary to cystostomy closure presenting today from [facility] with concerns for worsening hematuria. He was [...] 08/30/2023 8:48 AM CDT Pt transferred from [facility] via EMS, pt c/o blocked jon cath that started today. Pt had a right uretal stent exchange and an open bladder repair 08/15/23 and was discharged 08/25. Pt had a3 way jon placed at [facility], and transferred here because the clots returned. [...] RN, CPN, CCDS, CCS, CRC Clinical Documentation Water Operator Query created by: ELMER Barker, RN, [...] CDT Office Visit Department of Urology in [place], [place] [address] [place] [phone] Burke Strauss M.D. [address] [place] [address] Discharge Disposition: Home or Self Care Pending Results Name Type Priority Associated Diagnoses [...] Romero M.D. LAB BLOOD ADD-ON [facility] [address] [place] [address], [facility] DTL [facility] [address] [place] [address] * (ABNORMAL) Basic Metabolic Panel (09/05/2023 4:52 [...] Jakob De Paz M.D. LAB BLOOD ADD-ON [facility] 200 [place] [address], [facility] [address] [place] [address] * (ABNORMAL) Basic Metabolic Panel (09/04/2023 8:15 [...] CDT Jeffery Valdez M.D. LAB BLOOD ADD-ON [address] [address], [facility] [address] [place] [address] * (ABNORMAL) CBC without Differential (09/04/2023 8:15 [...] CDT Jeffery Valdez M.D. LAB BLOOD ADD-ON [facility] [address] [place] [address], [facility] [address] [place] [address] * Transfuse Red Blood Cells : (09/04/2023 3:30 PM CDT) Jeffery Valdez M.D. BLOOD TRANSFUSION OR DERABLES * Transfuse Red Blood Cells : , 1 Units (09/04/2023 3:30 PM CDT) Jeffery Valdez M.D. BLOOD TRANSFUSION OR DERABLES * Type and Screen (with Reflex Antibody ID) (09/04/2023 10:59 AM CDT) [facility] ABORh O Pos Not applicable 09/04/2023 11:46 AM CDT STRM Antibody Screen Negative Negative 09/04/2023 11:59 AM CDT STRM Type & Screen Expiration 09/07/2023 23:59 09/04/2023 11:46 AM CDT STRM Testing Location [place] DEFAULT 09/04/2023 11:21 AM CDT STRM Blood (Blood, Venous) 09/04/2023 10:59 AM CDT 09/04/2023 11:21 AM CDT Jeffery Valdez M.D. LAB BLOOD BANK TEST ORDERABLES Performing Organization Address [facility] Co de Phone Number [facility] [address] [place] [address], [facility] [address] [address] * Heparin Anti-Xa Assay (09/04/2023 7:34 AM [...] BLOOD NON A DD-ON Performing Organization Address [facility]/ZIP Co de Phone Number [facility] [address] [place] [address], [facility] [address] [place] [address] * (ABNORMAL) CBC without Differential (09/04/2023 7:34 [...] M.D. LAB BLOOD ADD-ON Performing Organization Address [facility] Co de Phone Number [facility] [address] [place] [address], [facility] [place] [address] * Heparin Anti-Xa Assay (09/04/2023 12:30 AM [...] BLOOD NON A DD-ON Performing Organization Address City/[facility]/ZIP Co de Phone Number [facility] [address] [place], [place] [address] 200 [place] [address] * Bacterial Culture, Aerobic + Susceptibility, Urine (09/03/2023 10:50 AM CDT) [facility] Urine Culture No growth after 1 day of incubation. 09/04/2023 8:52 AM CDT DTL Urine (Urine, Indwelling Catheter) 09/03/2023 10:50 AM CDT 09/03/2023 11:53 AM CDT Comment:Specimen Source Site : Urine Jeffery Valdez M.D. LAB MICROBIOLOGY - G ENERAL ORDERABLES [facility] [address] [place], [place] [id number] [place] [address] 200 [place] [address] * (ABNORMAL) CBC without Differential (09/03/2023 3:29 AM CDT) [facility] Hemoglobin 8.0(L) 13.2 - 16.6 g/dL [...] LAB BLOOD ADD-ON [facility] [address] [place] [address], [facility] [address] [place] [address] * Heparin Anti-Xa Assay (09/03/2023 3:29 AM [...] BLOOD NON A DD-ON Performing Organization Address City/[facility]/ZIP Co de Phone Number [facility] [address] [place] [address], [facility] [address] [place] [address] * Heparin Anti-Xa Assay (09/02/2023 2:57 AM [...] Alvarez M.D. LAB BLOOD NON A DD-ON [facility] [address] [place] [address], [facility] [place] [address] [place] [address] * (ABNORMAL) CBC without Differential (09/01/2023 8:16 PM CDT) [facility] Hemoglobin 8.5(L) 13.2 - 16.6 g/dL [...] M.D. LAB BLOOD ADD-ON Performing Organization Address City/[facility]/ZIP Co de Phone Number [facility] [address] [place] [address], [place] [address] * Heparin Anti-Xa Assay (09/01/2023 6:50 PM [...] BLOOD NON A DD-ON Performing Organization Address City/[facility]/ZIP Co de Phone Number [facility] [address] [place] [address], [place] [address] * APTT (Activated Partial Thromboplastin Time) (09/01/2023 9:05 AM CDT) Activated Partial Thrombopl Time, P 28 25 - 37 sec 09/01/2023 9:35 AM CDT STMA Blood (Blood, Venous) 09/01/2023 9:05 AM CDT 09/01/2023 9:21 AM CDT Paula Hernandez M.D. LAB BLOOD ADD-ON Performing Organization Address City/[facility]/ZIP Co de Phone Number [facility] [address] [place] [address], [facility] STMA [facility] [address] [place] [address] * (ABNORMAL) Basic Metabolic Panel (08/31/2023 9:36 PM CDT) [facility] Potassium, S 4.0 3.6 - 5.2 [...] ADD-ON [facility] [address] [place] [address], [facility] DTL [facility] [address] [place] [address] * (ABNORMAL) CBC without Differential (08/31/2023 9:36 [...] CDT Paula Hernandez M.D[place] [address], [facility] [place] [address] * [place] Fluoro Less Than 1 Hour [...] * (ABNORMAL) Hemoglobin (08/31/2023 4:21 AM CDT) [facility] Hemoglobin 7.8(L) 13.2 - 16.6 g/dL 08/31/2023 4:47 AM CDT DTL Blood (Blood, Venous) 08/31/2023 4:21 AM CDT 08/31/2023 4:35 AM CDT Kimi Vieira M.D., M.S. LAB BLOO D ADD-ON Performing Organization Address [facility] Co de Phone Number [facility] [address] [place] [address] * Type and Screen (with Reflex Antibody ID) (08/30/2023 9:50 PM CDT) [facility] ABORh O Pos Not applicable 08/30/2023 10:17 PM CDT STRM Antibody Screen Negative Negative 08/30/2023 10:31 PM CDT STRM Type & Screen Expiration 09/02/2023 23:59 08/30/2023 10:17 PM CDT STRM Testing Location [place] DEFAULT 08/30/2023 9:58 PM CDT STRM Blood (Blood, Venous) 08/30/2023 9:50 PM CDT 08/30/2023 9:58 PM CDT Shannan Correa D.O., M.H.A. LAB BLOOD BANK TEST ORDERABLES Performing Organization Address [facility] Co de Phone Number [facility] [address] STRM [facility] [address] [place] [address] * Lactate (08/30/2023 9:50 PM CDT) [facility] Lactate, P 1.8 0.5 - 2.2 mmol/L 08/30/2023 10:09 PM CDT STMA Blood (Blood, Venous) 08/30/2023 9:50 PM CDT 08/30/2023 9:55 PM CDT Shannan Correa D.O., M.H.A. LAB BLOOD NON ADD-ON [facility] [address] [place] [address], [facility] STMA [facility] [address] [place] [address] * (ABNORMAL) Basic Metabolic Panel (08/30/2023 9:49 [...] Correa D.O. M.H.A. LAB BLOOD ADD- ON [facility] [address] [place] [address], [facility] [address] [place] [address] * (ABNORMAL) CBC with Differential, Blood (08/30/2023 9:49 PM CDT) [facility] Hemoglobin 8.5(L) 13.2 - 16.6 g/dL [...] Correa D.O., M.H.A. LAB BLOOD ADD- ON [facility] [address] [place] [address], [place] STMA [facility] [address] [place] [address] [facility] [address] [place] [address] * DX Chest AP or PA and [...] MUSE QTC Interval 403 ms MUSE P [place] 44 degrees MUSE R [place] 9 degrees MUSE T Wave [place] -76 degrees MUSE 08/30/2023 7:44 PM CDT [...] give total of 40 mEq Dissolve per pruner recommendations. Do NOT chew or swallow tablet., [...] Sarah Morgan RNarendra - Reason: See Provider Order)1606 (Unheld by provider - Provider: Jeffery Valdez [...] give total of 40 mEq Dissolve per pruner recommendations. Do NOT chew or swallow tablet., Monitor the following for replacement: Potassium, Replace Potassium per: Standard Schedule 2337 (Given - Provider: Merlyn Treadwell R.N.) rivaroxaban tablet 10 mg (XARELTO) 10 mg, oral, Daily, First dose on 09/04/23 at 1030 1117 (Given - Provider: Joy [...] resumed 0417 (Rate/Dose Change - Provider: Brittni Hwoe R.N.)0722 (New Bag - Provider: Sarah Morgan [...] analgesics are ineffective, Starting on Tue08/30/23 at 6 oxyCODONE IR tablet 5 mg (ROXICODONE)(Linked Group [...] line care, Starting on Tue08/30/23 at 223, Peripheral Intravenous Catheter and Rapid Infusion Catheter, [...] intravenous, As needed, antiXa 0.1-0.19, Starting on [facility] 09/03/23 at 1608, Intensity type: Moderate, Anti-Xa < 0.1: Loading Dose (Units/kg): 60, Anti-Xa 0.1-0.19: Loading Dose (Units/kg): 30, Anti-Xa > 0.19: Loading Dose (Units/kg): 0 Or heparin (porcine) 1,000 unit/mL injection 5,500 Units (CANCELED) 5,500 Units (rounded from 5,544 Units = 60 Units/kg ? 92.4 kg), intravenous, As needed, antiXa less than 0.1, Starting on [facility] 09/03/23 at 1608, Intensity type: Moderate, Anti-Xa [...] 2256 documented in this encounter Care Teams Community Health Coordinator Relationship Specialty Start Date End Date Elsewhere, Pcp PCP - General Internal Medicine 08/13/23 documented as of this encounter
--- OUTSIDE RECORDS SUMMARY | 2023-10-28 12:35 | XMS_ITS | Encounter Summary ---
Author Organization [facility] Address [address] [place] [address] Care Team Providers Care Crtt Name Role Phone Elsewhere, Pcp Primary Care Provider Unavailabl e Encounter Details Date Type Department Care Team (Late st Contact Info) Description 09/09/2023 Documentation Department of Urology in [place], [place] [address] [place] [address] Ko Victoria M.D. [address] [place] [address] Social History Tobacco Use Types Packs/Day Years Used Date Smoking Tobacco: Never Smokeless Tobacco: Never [facility] Utilities Answer Date Recorded In the past 12 months has [facility] electric, gas, oil, or water [employer] threatened to shut off services in your [...] CDT Office Visit Department of Urology in [place], [place] [address] [place] [address] Burke Strauss M.D. [address] [place] [address] Discharge Disposition: Home or Self Care documented as of this encounter Visit Diagnoses Not on filedocumented in this encounter Care Teams Crtt Relationship Specialty Start Date End Date Elsewhere, Pcp PCP - General Internal Medicine 08/13/23 documented as of this encounter
--- OUTSIDE RECORDS SUMMARY | 2023-10-28 12:35 | XMS_ITS | Encounter Summary ---
Author Organization [facility] Address [address] [place] [address] Care Team Providers Care Public Address Announcer Name Role Phone Elsewhere, Pcp Primary Care Provider Unavailabl e Encounter Details Date Type Department Care Team (Late st Contact Info) Description 09/06/2023 Clinical Communication [facility] [address] [place] [address] Yasmine Loco Social History Tobacco Use Types Packs/Day Years Used Date Smoking Tobacco: Never Smokeless Tobacco: Never C Utilities Answer Date Recorded In the past 12 months has e [employer], gas, oil, or water [employer] threatened to shut off services in [...] living situation today? I have a [facility] place to live 09/09/2023 Sex and Gender Information Value Date Recorded Sex Assigned at Not on file Gender Identity Not on file Sexual Orientation Not on file documented as of this encounter Plan of Treatment Upcoming Encounters Date Type Department Care Team (Late st Contact Info) Description 11/09/2023 11:00 AM CDT Office Visit Department of Urology in [place], [place] [address] [place] [address] Burke Strauss M.D. [facility] [place] [address] Discharge Disposition: Home or Self Care documented as of this encounter Visit Diagnoses Diagnosis Hematuria Gross- Primary documented in this encounter Care Teams Public Address Announcer Relationship Specialty Start Date End Date Elsewhere, Pcp PCP - General Internal Medicine 08/13/23 documented as of this encounter
--- OUTSIDE RECORDS SUMMARY | 2023-10-28 12:35 | XMS_ITS | Encounter Summary ---
Author Organization [facility] Address [address] [place] [address] Care Team Providers Care Vehicle Technician Name Role Phone Elsewhere, Pcp Primary [...] has e electric, gas, oil, or water [employer] threatened to shut off services in your [...] your living situation today? I have a [facility] place to live 09/09/2023 Sex and Gender Information Value Date Recorded Sex Assigned at Not on file Gender Identity Not on file Sexual Orientation Not on file documented as of this encounter Plan of Treatment Upcoming Encounters Date Type Department Care Team (Late st Contact Info) Description 11/09/2023 11:00 AM CDT Office Visit Department of Urology in [place], [place] [address] [place] [address] Burke Strauss M.D. [address] [place] [phone] Discharge Disposition: Home or Self Care documented as of this encounter Procedures Procedure [...] on filedocumented in this encounter Care Teams Vehicle Technician Relationship Specialty Start Date End Date Elsewhere, Pcp PCP - General Internal Medicine 08/13/23 documented as of this encounter
--- OUTSIDE RECORDS SUMMARY | 2023-10-28 12:35 | XMS_ITS | Encounter Summary ---
Author Organization [facility] Address [address] [place] [address] Care Team Providers Care Employment Recruiter Name Role Phone Elsewhere, Pcp Primary Care Provider Unavailabl e Reason for Referral * Outpatient (Routine) - Closed Specialty Diagnoses / Procedures Referred By Contac t Referred To Contact Diagnoses Hematuria Procedures URO Urethral cath change (UCC) Paula Hernandez M.D. [address] [place] [address] [facility] Referral ID Status Reason Start Date Expiration Date Visits Re quested Visits Authorized [id number] Closed 09/15/2023 09/14/2024 1 1 * Outpatient (Routine) - Authorized Specialty Diagnoses / Procedures Referred By Contac t Referred To Contact Radiology Diagnoses Hematuria Procedures IR Nephrostomy Tube Exchange Left Paula Hernandez M.D. [address] [place] [address] [facility] Referral ID Status Reason Start Date Expiration Date V isits Requested Visits Authorized [id number] Authorized 09/15/2023 09/14/2024 1 1 Reason for Visit * Reason Comments Blood in Urine Encounter Details Date Type Department Care Team (Latest Contact Info) Description 09/09/2023 7:24 AM CDT - 09/15/2023 5:28 PM CDT Hospital Encounter [facility], [facility], Sixth Floor [address] [place] [phone] Gerri Merrill M.D., Ph.D. [address] [place] [phone] Sumit Holbrook M.D. [address] [place] [phone] Hematuria (Primary Dx) Discharge Disposition: Home or Self Care Social History Tobacco Use Types Packs/Day Years Used Date Smoking Tobacco: Never Smokeless Tobacco: Never [facility] Vicampoities Answer Date Recorded In the past 12 months has [facility] [employer], gas, oil, or water [employer] threatened to shut off services in your [...] [facility] place to live 09/09/2023 Sex and [...] AM CDT DISCHARGE SUMMARY BRIEF OVERVIEW Hospital: [facility] Discharge Provider: Sumit Holbrook M.D. Primary Team: [facility] [...] IP CONSULT TO UROLOGY IP CONSULT TO SAMPLE SUPERVISOR WOUND CARE IP CONSULT TO HYPERBARIC MEDICINE [...] through Care Everywhere. * Sulfamethoxazole/Trimethoprim (By mouth) (Paraguayan) documented in this encounter Medications at Time [...] home. Social Work also sent referral to [facility] and reached out to Service [...] reviewed. GI Function: Last BM Date: 09/11/23, Rex Stool Chart: Type 5: Soft blobs with [...] 86.8 kg (09/09/2023) Current Weight: 84.5 kg [place] Body Weight (Calculated) : 75.3 kg BMI [...] or 5%. Estimated Needs: Total Calorie Needs: 4347-3067 calories/day Method to Estimate Energy Needs: kcal/kg [...] about patient's nutritional care please contact pager [phone] on weekdays 07:30-16:00 or [phone] on weekends/holidays ([facility]). * Clara Luu APRN, C.N.P., D.N.P. - 09/14/2023 10:04 AM CDT VASCULAR & INTERVENTIONAL RADIOLOGY PROGRESS NOTE SUBJECTIVE Mr. Kalen Vgea is post procedure day 1 after left [...] - 09/14/2359 09/14/23699 - 09/15/23 0659 Shift [phone] 2207-3652 24 Hour Total 7482-0552 [phone] 8937-8324 24 Hour Total INTAKE Other 30 60 [...] please contact Vascular and Interventional Radiology DEBBI ([phone]). Anticoagulation: A percutaneous nephrostomy tube is considered [...] care. Please feel free to page the [facility] Inpatient Consult Service at [phone] or the on-call resident at [phone] after 5 PM and on weekends with [...] . Neph tube clear yellow urine. I/O ([id number]): 1.9 L, 1.1 L from the neph [...] questions or concerns. Pager during business hours: [phone] Pager after hours: [phone] * Paula Hernandez M.D. - 09/13/2023 6:05 [...] in place draining clear yellow urine I/O ([id number]): Adequate urine output 2.7 L/248 1 L [...] questions or concerns. Pager during business hours: [phone] Pager after hours: [phone] * Raya Meza Pharm.D., R.Ph., [facility] - 09/12/2023 7:44 AM CDT [...] follow for medicationuse optimization Pharm. YanciDJonah, R.Ph., [facility] Addendum: Heparin will be stopped [...] in place draining clear yellow urine I/O ([id number]): CBI paused for obs Labs: Hb: Hemoglobin [...] Date/Time Bacterial Culture, Aerobic + Susceptibility, Urine [[id number]] (Abnormal) (Susceptibility) Collected: 09/09/23 1128 Lab Status: [...] Susceptible Bacterial Culture, Aerobic + Susceptibility, Urine [[id number]] Collected: 09/03/23 1050 Lab Status: Final result [...] DVT - Hold Plavix and Eliquis -Bactrim [facility] Summary: Diet: regular Activity: ad kong DVT PPX: low intensity heparin drip GI PPX: none Bowel Regimen: senna, miralax IVF: none Abx/Microbiology: bactrim started 09/11 Pain Control: scheduled trospium Home Meds Resumed: enzalutamide, metoprolol, Crestor Held Home Meds: Xarelto, Plavix Consults: Vascular Medicine Paula Hernandez M.D. 09/12/2023 Please page the Urology Chief Service with questions or concerns. Pager during business hours: [phone] Pager after hours: [phone] * Js Yang M.D. - 09/11/2023 9:18 [...] [place] [phone] during business hours orat [phone] after hours. * Portillo Crespo Pharm.D., R.Ph., [...] Mayur Collier PharmD, LUCERO, BCPS, [facility] Pager [phone] * Js Yang M.D. - 09/10/2023 9:50 [...] Service [place] [phone] during business hours orat [phone] after hours. * Quin Harrell Pharm.D., R.Ph., [...] R.N., C.W.C.N. - 09/09/2023 1:16 PM CDT [facility] Wound RN consulted [...] None Unable to Measure N *Wound Bed Open;Meeker;Yellow;Fibrin/Slough Tissue Exposed None Odor None *Exudate Amount Small Drainage Description Serous;Perez Janiya-wound Assessment Intact;Fragile;Meeker;Purple;Maceration;White Periwound Treatment Liquid skin protectant (SurePrep) *Primary Dressing Gelling fiber/Hydrofiber (Aquacel Ag) *Primary Dressing Frequency of Change Daily & PRN *Secondary Dressing Foam (Sacral Mepilex Border) *Secondary Dressing Frequency of Change Daily & PRN Lengthy Treatment > 30 minutes > 30 minutes Ongoing management Nursing;Wound/cake batter mixer Partial head to toe skin assessment completed [...] CDT * Raya Meza Pharm.D., R.Ph., [facility] - 09/09/2023 11:17 AM CDT [...] medicationuse optimization Stephanie Meza Pharm.D., R.Ph., [facility] Admission Medication History Note Adherence issues: No concerns Medication list source: Patient, son, recent filling Hx Medication related information: Per pt, he takes amlodipine, mirabegron daily in the afternoon, around 1 to 2 pm-tucker, for no specific reasons Prior to Admission Medications Med List Status: Pharmacy Complete Set By: Raya Meza, Pharm.D., R.Ph., [facility] at 09/09/2023 11:16 AM Taking? [...] follow Paula Hernandez M.D. Urology PGY-2 Pager #[phone] Please page Chief Urology at [phone] from 7 AM - 5 PM or at [phone] after hours with any questions/concerns. documented in [...] reviewed. GI Function: Last BM Date: 09/11/23, Rex Stool Chart: Type 5: Soft blobs with [...] 86.8 kg (09/09/2023) Current Weight: 84.5 kg [place] Body Weight (Calculated) : 75.3 kg BMI [...] or 5%. Estimated Needs: Total Calorie Needs: 1266-0578 calories/day Method to Estimate Energy Needs: kcal/kg [...] about patient's nutritional care please contact pager [phone] on weekdays 07:30-16:00 or [phone] on weekends/holidays ([facility]). * Clara Luu, LARD RENDERER, C.N.P., D.N.P. - 09/12/2023 11:59 AM CDTAssociated [...] admitted for CBI. He was transferred to [facility] after difficultywith irrigating his Jon and [...] ABDOMEN INCISIONAL; Surgeon: Boubacar Brock M.D.; Location: [facility] ROMB OR CYSTOSCOPY CYSTOGRAM VOIDING N/A 08/31/2023 [...] and recommendations. Please feel free to page [phone] [phone] after 5 PM and on weekends with additional questions. VIR will continue to follow * Alessandra Aguero D.O. - 09/09/2023 5:26 PM CDTAssociated Order(s): IP CONSULT TO VASCULAR MEDICINE VASCULAR MEDICINE CONSULT NOTE Requesting Physician: Gerri Merrill M.D.,* SUBJECTIVE REASON FOR CONSULT: assistance with AC management, patient on plavix and eliquis admitted with refractory hematuria requing CBI. Recommend heparin drip? thanks [facility] [phone] HISTORY OF PRESENT ILLNESS Mr. Vega is [...] stents placed in total (2016, no prior [place], completed after positive stress test) Recommended for [...] for radiation proctitis SOCIAL HISTORY Lives in [place], [place] OBJECTIVE AVSS General: Lying in bed, [...] with Dr. Victoria, the chief urology resident cardiac monitor. Please page chief Urology Service [place] [phone] [place] [phone] after hours. Paula Hernandez M.D. 09/09/23 9:10 [...] End of Shift Summary: Pt DC'd to [facility] with family. Patient [...] Urology consulted after discussion with the catheter customer support technician who advised that for this patient they are required to get approval from Urologyprior to placing catheter. ED Course as of 09/09/23 0958 TueSeptember 09, 2023 0822 Hemoglobin(!): 8.9 Down from 9.6 one-week ago 0822 Leukocytes(!): 14.5 New leukocytosis with neutrophilia 0822 INR: 1.1 0823 Discussed with the catheter customer support technician. Bladder scan showed 125 mL. There [...] CDT Office Visit Department of Urology in [address] [phone] Burke Strauss M.D. [address] [place] [phone] Discharge Disposition: Home or Self Care Pending [...] Hernandez M.D. LAB BLOOD ADD-ON [facility] [address] [place] [address], [facility] DTL [facility] [address] [place] [address] * Heparin Anti-Xa Assay (09/14/2023 3:19 AM CDT) [facility] Heparin Anti-Xa, P 0.11 IU/mL 2023 4:07 [...] Sumit Holbrook M.D. LAB BLOOD NON ADD-ON [address] [address], [facility] [address] [place] [address] * (ABNORMAL) CBC without Differential (09/14/2023 3:19 AM CDT) [facility] Hemoglobin 10.1(L) 13.2 - 16.6 [...] CDT Paula Hernandez M.D. LAB BLOOD ADD-ON [facility] [address] [place] [address], [facility] [address] [place] [address] * IR Nephrostomy Tube Placement Left (09/13/2023 2:20 PM CDT) Anatomical Region Laterality Modality Genito Urinary, Vascular Int erventional RST LOS, Vascular Interventional ARZ LOS, Vascular Interventional FLA LOS Left X-Ray Angiography Impressions 09/13/2023 2:33 PM CDT Left 10 Paraguayan percutaneous nephrostomy tube placement. EP Narrative 09/13/2023 [...] tract was further dilated and a 10 Paraguayan nephrostomy tube was placed with loop formed [...] sedation timewas: 9 minutes. IMPRESSION: Left 10 Paraguayan percutaneous nephrostomy tube placement. EP Latisha Whitehead M.D. IMG IR PROCEDURE S * Fungal Culture, Routine (09/13/2023 2:17 PM CDT) Fungal Culture, Routine No growth after 24 days of incubation. 10/08/2023 1:02 AM CDT DTL Fluid (Kidney, Left) 09/13/2023 2:17 PM CDT 09/13/2023 3:56 PM CDT Comment:Specimen Source Site : Fluid Latisha Whitehead M.D. LAB MICROBIOLOGY - GENERAL ORDERABLES Performing Organization Address [facility]/ZIP Co de Phone Number [facility] [address] [place] [address], [address] [address] * Bacterial Culture, Anaerobic + Susceptibility (09/13/2023 2:17 PM CDT) Bacterial Culture, Anaerobic + Susc No growth after 14 days of incubation. 09/27/2023 8:04 AM CDT DTL Fluid (Kidney, Left) 09/13/2023 2:17 PM CDT 09/13/2023 3:56 PM CDT Comment:Specimen Source Site : Fluid Latisha Whitehead M.D. LAB MICROBIOLOGY - GENERAL ORDERABLES Performing Organization Address City/[facility]/ZIP Co de Phone Number [facility] [address] [place] [address], [address] [place] [address] * Gram Stain (09/13/2023 2:17 PM CDT) Gram Stain No organisms seen. White blood cells, Rare 09/13/2023 9:02 PM CDT DTL Fluid (Kidney, Left) 09/13/2023 2:17 PM CDT 09/13/2023 3:56 PM CDT Comment:Specimen Source Site : Fluid Latisha Whitehead M.D. LAB MICROBIOLOGY - GENERAL ORDERABLES Performing Organization Address City/[facility]/ZIP Co de Phone Number [facility] [address] [place], [place] [address] [place] [address] [address] [place] [address] * Bacterial Culture, Aerobic + Susceptibility (09/13/2023 2:17 PM CDT) Pathologist [facility] Bacterial Culture, Aerobic + Susc No growth after 5 days of incubation. 09/18/2023 12:35 PM CDT DTL Fluid (Kidney, Left) 09/13/2023 2:17 PM CDT 09/13/2023 3:56 PM CDT Comment:Specimen Source Site : Fluid Latisha Whitehead M.D. LAB MICROBIOLOGY - GENERAL ORDERABLES Performing Organization Address City/[facility]/ZIP Co de Phone Number [facility] [address] [place], [place] [address] [place] [address] [address] [place] [address] * (ABNORMAL) CBC without Differential (09/13/2023 5:57 [...] CDT Ko Victoria M.D. LAB BLOOD ADD-ON [facility] [address] [place] [address], [facility] [address] [place] [address] * Heparin Anti-Xa Assay (09/13/2023 5:56 AM [...] LAB BLOOD NON ADD-ON Performing Organization Address City/[facility]/ZIP Co de Phone Number [facility] [address] [place], [place] [address] [place] [address] * APTT (Activated Partial Thromboplastin Time) (09/13/2023 5:56 AM CDT) Pathologist [facility] Activated Partial Thrombopl Time, P 35 25 - 37 sec 09/13/2023 7:14 AM CDT DTL Blood (Blood, Venous) 09/13/2023 5:56 AM CDT 09/13/2023 6:53 AM CDT Sumit Holbrook M.D. LAB BLOOD ADD-ON Performing Organization Address City/[facility] Co de Phone Number [facility] [address] [place], [place] [address] [place] [address] * (ABNORMAL) Basic Metabolic Panel (09/13/2023 5:56 AM CDT) [facility] Potassium, S 3.7 3.6 - [...] CDT Paula Hernandez M.D. LAB BLOOD ADD-ON [facility] [address] [place] [address], [facility] [address] [place] [address] * NM Kidney DMSA (09/12/2023 12:21 PM [...] reduced radiotracer uptake asdescribed. Js Yang M.D. [facility] NM PROCEDURES * Transfuse Red Blood Cells [...] LAB BLOOD ADD-ON Performing Organization Address City/[facility]/ZIP Co de Phone Number [facility] 200 [place] [address] * (ABNORMAL) APTT (Activated Partial Thromboplastin Time) (09/12/2023 3:42 AM CDT) Pathologist [facility] Activated Partial Thrombopl Time, P 49(H) 25 - 37 sec 09/12/2023 4:35 AM CDT DTL Blood (Blood, Venous) 09/12/2023 3:42 AM CDT 09/12/2023 4:00 AM CDT Gerri Merrill M.D., Ph.D. LAB BLOOD A DD-ON Performing Organization Address [facility] Co de Phone Number [facility] [address] [place] [address] * (ABNORMAL) Basic Metabolic Panel (09/11/2023 8:23 [...] CDT Js Yang M.D. LAB BLOOD ADD-ON [facility] [address] [facility] [address] [place] [address] * (ABNORMAL) CBC without Differential (09/11/2023 8:23 [...] LAB BLOOD ADD-ON Performing Organization Address City/[facility]/ZIP Co de Phone Number [facility] 200 [place] [address] * (ABNORMAL) APTT (Activated Partial Thromboplastin Time) (09/10/2023 11:42 PM CDT) Activated Partial Thrombopl Time, P 47(H) 25 - 37 sec 09/11/2023 2:05 AM CDT DTL Blood (Blood, Venous) 09/10/2023 11:42 PM CDT 09/11/2023 2:05 AM CDT Gerri Merrill M.D., Ph.D. LAB BLOOD A DD-ON Performing Organization Address [facility] Co de Phone Number [facility] [address] [place] [address] * US Urinary Bladder (09/10/2023 8:41 PM [...] LAB BLOOD A DD-ON Performing Organization Address City/[facility]/ZIP Co de Phone Number [facility] [address] [place] [address], [facility] DTL [facility] [address] [place] [address] * (ABNORMAL) APTT (Activated Partial Thromboplastin Time) (09/10/2023 10:11 AM CDT) Activated Partial Thrombopl Time, P 63(H) 25 - 37 sec 09/10/2023 10:57 AM CDT DTL Blood (Blood, Venous) 09/10/2023 10:11 AM CDT 09/10/2023 10:40 AM CDT Gerri Merrill M.D., Ph.D. LAB BLOOD A DD-ON Performing Organization Address City/[facility]/ZIP Co de Phone Number [facility] [address] [place] [address], [facility] [address] [place] [address] * (ABNORMAL) CBC without Differential (09/10/2023 3:27 [...] CDT Ko Victoria M.D. LAB BLOOD ADD-ON [facility] [address] [place] [address], [facility] [address] [place] [address] * (ABNORMAL) APTT (Activated Partial Thromboplastin Time) (09/10/2023 12:06 AM CDT) [facility] Activated Partial Thrombopl Time, P 57(H) 25 - 37 sec 09/10/2023 1:05 AM CDT DTL Blood (Blood, Venous) 09/10/2023 12:06 AM CDT 09/10/2023 12:33 AM CDT Gerri Merrill M.D., Ph.D. LAB BLOOD A DD-ON Performing Organization Address City/[facility] Co de Phone Number [facility] [address] [place] [address], [facility] DTL [facility] [address] [place] [address] * APTT (Activated Partial Thromboplastin Time) (09/09/2023 5:08 PM CDT) Pathologist [facility] Activated Partial Thrombopl Time, P 31 25 - 37 sec 09/09/2023 5:24 PM CDT STMA Blood (Blood, Venous) 09/09/2023 5:08 PM CDT 09/09/2023 5:12 PM CDT Ko Victoria M.D. LAB BLOOD ADD-ON Performing Organization Address [facility] Co de Phone Number [facility] [address] [place] [address], [facility] STMA [facility] [address] [place] [address] * (ABNORMAL) Dipstick, Urine (09/09/2023 11:28 AM [...] Jeffery Church M.D. LAB URINE ORDERA BLES [facility] [address] [place], [place] [address] [address] [place] [address] * pH, Random, Urine (09/09/2023 11:28 AM CDT) pH, Random, U 6.3 4.5 - 8.0 09/09/2023 12:19 PM CDT DTL Urine 09/09/2023 11:2 8 AM CDT 09/09/2023 11:58 AM CDT Jeffery Church M.D. LAB URINE ORDERA BLES Performing Organization Address City/[facility]/ZIP Co de Phone Number [facility] [address] [place], [place] [address] [address] [place] [address] * Osmolality, Urine (09/09/2023 11:28 AM CDT) Osmolality, U 380 150 - 1150 mOsm/kg 09/09/2023 12:19 PM CDT DTL Urine 09/09/2023 11:2 8 AM CDT 09/09/2023 11:58 AM CDT Jeffery Church M.D. LAB URINE ORDERA BLES Performing Organization Address City/[facility]/ZIP Co de Phone Number [facility] [address] [place], [place] [address] [address] [place] [address] * (ABNORMAL) Microscopic Manual (09/09/2023 11:28 AM [...] CDT Jeffery Church M.D. LAB URINE ORDERA LAKESHABryon Performing Organization Address [facility] Co de Phone Number [facility] [address] [facility] [address] [place] [address] * (ABNORMAL) Gram Stain, Urine (09/09/2023 11:28 AM CDT) Source Urine, Urine, Straight Catheter 09/09/2023 11:58 AM CDT DTL Gram Stain, U Positive(A) Negative 09/09/2023 12:16 PM CDT DTL Comment: Few Gram-negative bacilli ? Yeast Urine 09/09/2023 11:2 8 AM CDT 09/09/2023 11:58 AM CDT Jeffery Church M.D. LAB URINE MARLONHelga SHELLY Performing Organization Address [facility] de Phone Number [facility] [address] [place], [place] [phone] [place] [address] [facility] [address] [place] [address] * (ABNORMAL) Bacterial Culture, Aerobic + Susceptibility, [...] Church M.D. LAB MICROBIOLOGY - GENERAL ORDERABLES [facility] [address] [place] [address], [place] DTL [facility] [address] [place] [address] * (ABNORMAL) Urinalysis, with Microscopic: Urine, Straight [...] 09/09/2023 1:02 PM CDT DTL Predicted Range [id number] mg/24 h 09/09/2023 1:02 PM CDT DTL Comment Micro done on <2.5 mL 09/09/2023 12:27 PM CDT DTL Urine (Urine, Straight Catheter) 09/09/2023 11:28 AM CDT 09/09/2023 11:58 AM CDT Jeffery Church M.D. LAB URINE MARLONA SHELLY [facility] [address] [place] [address], [facility] [address] [place] [address] * US Kidneys Bilateral with Bladder (09/09/2023 [...] dependent debris/blood clot within the urinarybladder. Jeffery CHOUDHARY US PROCEDURE S * Prothrombin Time (PT) [...] CDT Jeffery Church M.D. LAB BLOOD ADD-ON [facility] [address] [place] [address], [facility] STMA [facility] [address] [place] [address] * (ABNORMAL) CBC with Differential, Blood (09/09/2023 [...] CDT Jeffery Church M.D. LAB BLOOD ADD-ON [facility] [address] [place] [address], [facility] STMA [facility] [address] [place] [address] [facility] [address] [place] [address] * (ABNORMAL) Basic Metabolic Panel (09/09/2023 8:04 [...] M.D. LAB BLOOD ADD-ON Performing Organization Address [facility] Co de Phone Number [facility] [address] [place] [address], [facility] STMA [facility] [address] [place] [address] * Type and Screen (with Reflex Antibody ID) (09/09/2023 8:03 AM CDT) Pathologist [facility] ABORh O Pos Not applicable 09/09/2023 8:47 AM CDT STRM Antibody Screen Negative Negative 09/09/2023 9:02 AM CDT STRM Type & Screen Expiration 09/12/2023 23:59 09/09/2023 8:47 AM CDT STRM Testing Location [place] DEFAULT 09/09/2023 8:10 AM CDT STRM Blood (Blood, Venous) 09/09/2023 8:03 AM CDT 09/09/2023 8:10 AM CDT Jeffery Church M.D. LAB BLOOD BANK T EST ORDERABLES Performing Organization Address [facility] Co de Phone Number [facility] [address] [place] [address], [facility] STRM [facility] [address] [place] [address] documented in this encounter Visit Diagnoses Diagnosis [...] (Tc-99m DMSA) 2.7-3.3 millicurie, intravenous, Once, On 09/12/23 at 1000, For 1 dose, Imaging Protocol [...] 0922 (Given - Provider: Brittanie Lewis R.N.) 09 (Given - Provider: Brittanie Lewis R.N.) enzalutamide capsule 120 mg (XTANDI) 120 mg, oral, Daily, First dose on Tue09/10/23 at 0900, HAZARDOUS - Handle with care. Swallow whole. Do NOT crush, chew or open capsule. 101 (Given - Provider: Leonardo Clark R.N. - Comment: With Rodrigo MCCULLOUGH) 921 (Given - Provider: Brittanie Lewis R.N.) 09 (Given - Provider: Brittanie Lewis R.N.) metoprolol [...] 0922 (Given - Provider: Brittanie Lewis R.N.) 09 (Given - Provider: Brittanie Lewis R.N.) rosuvastatin [...] older 0547 (Given - Provider: Lilia Whitney R.N.)165 (Given - Provider: Leonardo Clark R.N.) 05 (Given - Provider: Lilia Whitney R.N.)2101 (Given [...] 0159 (New Bag - Provider: Lilia Whitney RJonahNJoanh)0715 (Stopped - Provider: Leonardo Clark RJonahNJonah) heparin [...] (RAD) 1406 (Given - Provider: Lars Chavez RRitesh.)1409 (Given - Provider: Mayur MckeonN.)1412 (Given - Provider: Lars Chavez R.N.) heparin [...] breaths/minute. 1406 (Given - Provider: Lars Chavez RRitseh.)1409 (Given - Provider: Lars Chavez R.N.) naloxone [...] documented as of this encounter Care Teams Employment Recruiter Relationship Specialty Start Date End Date Elsewhere, Pcp PCP - General Internal Medicine 08/13/23 documented as of this encounter
--- OUTSIDE RECORDS SUMMARY | 2023-10-28 12:35 | XMS_ITS | Encounter Summary ---
Author Organization [facility] Address [address] [place] [address] Care Team Providers Care Balance Staff Inspector Name Role Phone Elsewhere, Pcp Primary Care Provider Unavailabl e Encounter Details Date Type Department Care Team (Late st Contact Info) Description 09/06/2023 Orders Only Section of Hyperbaric Medicine in [place], [place] [address] [place] [phone] Kira Ferraro, ARUN, C.N.P., M.S.N. [address] [place] [phone] Social History Tobacco Use Types Packs/Day Years Used Date Smoking Tobacco: Never Smokeless Tobacco: Never [facility] Utilities Answer Date Recorded In the [...] [facility] place to live 09/09/2023 Sex and Gender Information Value Date Recorded Sex Assigned at Not on file Gender Identity Not on file Sexual Orientation Not on file documented as of this encounter Plan of Treatment Upcoming Encounters Date Type Department Care Team (Late st Contact Info) Description 11/09/2023 11:00 AM CDT Office Visit Department of Urology in [place], [place] [address] [place] [phone] Burke Strauss M.D. 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
--- OUTSIDE RECORDS SUMMARY | 2023-10-28 12:36 | XMS_ITS | Encounter Summary ---
Author Organization [facility] Address [address] [place] [address] Care Team Providers Care Applied Technologist Name Role Phone Elsewhere, Pcp Primary Care Provider Unavailabl e Encounter Details Date Type Department Care Team (Late st Contact Info) Description 08/31/2023 12:34 PM CDT Anesthesia Event RST ROMB MAIN OR [address] [place] [phone] Joe Stoll M.D. [address] [place] [phone] Benjamin Williamson APRN, OPTICAL MECHANIC APPRENTICE [address] [place] [phone] Anesthesia Record Procedure Summary Procedure Name Responsible [...] 1402 08/31/23 1243 by Benjamin Williamson APRN, OPTICAL MECHANIC APPRENTICE 08/31/23 1402 by Benjamin Williamson APRN, OPTICAL MECHANIC APPRENTICE Indwelling Urinary Catheter Placement Date: 08/31/23; Placement [...] Tobacco: Never Smokeless Tobacco: Never [facility] Utilities Answer Date Recorded In the past 12 months has [facility] [employer], [employer], or water [employer] threatened to shut off services in your [...] situation today? I have a [facility] place to live 08/13/2023 Sex and Gender Information Value Date Recorded Sex Assigned at Not on file Gender Identity Not on file Sexual Orientation Not on file documented as of this encounter OR Notes * Anesthesia Postprocedure Evaluation - Joe Stoll M.D. - 08/31/2023 5:27 PM CDT Patient: Kalen Vega Procedure Summary Date: 08/31/23 Room / Location: [address] 01 530 / [facility] in [place], [place] Anesthesia Start: 1234 Anesthesia Stop: 1420 [...] Location: OR 108 [address] 01 530 / [facility] in [place], [place] Providers: Mayur Alvarez M.D. Pertinent components [...] patient / legal guardian, or through an staging technician; patient evaluated and approved for anesthesia / [...] CDT Office Visit Department of Urology in [place], [place] [address] [place] [phone] Burke Strauss M.D. [facility] [place] [phone] Discharge Disposition: Home or Self Care documented [...] mg documented in this encounter Care Teams Applied Technologist Relationship Specialty Start Date End Date Elsewhere, Pcp PCP - General Internal Medicine 08/13/23 documented as of this encounter
--- OUTSIDE RECORDS SUMMARY | 2023-10-28 12:36 | XMS_ITS | Encounter Summary ---
Author Organization [facility] Address [address] [place] [address] Care Team Providers Care Catalogue Compiler Name Role Phone Elsewhere, Pcp Primary Care Provider Unavailabl e Reason for Visit * Reason Comments Urinary Problem Rapid Heart Rate Encounter Details Date Type Department Care Team (Late st Contact Info) Description 08/31/2023 12:36 PM CDT - 08/31/2023 2:31 PM CDT Surgery RST ROMB MAIN OR [address] [place] [address] Mayur Alvarez M.D. [address] [place] [address] CYSTOSCOPY EVACUATION CLOTS Social History Tobacco Use Types Packs/Day Years Used Date Smoking Tobacco: Never Smokeless Tobacco: Never [facility] Utilities Answer Date [...] [facility] to live 08/13/2023 Sex and [...] Hospital: [facility] Discharge Provider: Mayur Alvarez M.D. Primary Team: [...] CYSTOGRAM Mayur Alvarez M.D.White, Lindsay A, M.D. [facility] ROMB OR DISCHARGE DISPOSITION [facility] [facility] [place]6] ACTIVE ISSUES REQUIRING FOLLOW UP OUTPATIENT [...] CONSULT TO CARE MANAGEMENT IP CONSULT TO NETWORK PROFESSIONAL WOUND CARE IP CONSULT TO HYPERBARIC MEDICINE CONDITION AT DISCHARGE improved Discharge instructions were provided to the patient and caregiver(s). documented in this encounter Discharge Instructions * Patient Instructions* Carmen Louis, R.N. - 08/31/2023 9:44 AM CDT The Senior LinkAge Line?? is a service of the [place] Board on Aging in partnership with [place]'s Area Agencies on Aging. It is a free service of the [facility] that connects older [place] and their families with the help they need. Call the Senior LinkAge Line?? at: 511.766.9926 M-F, 8am-4:30pm to connect with specialists that are available to assist you with your specific needsor check out their website at https://www.[email or web address] * Attachments The following attachments cannot be sent through Care Everywhere. * Cefdinir (By mouth) (Vietnamese) documented in this encounter Medications at Time [...] questions or concerns. Pager during business hours: [phone] Pager after hours: [phone] * Jeffery Valdez M.D. - 09/04/2023 10:34 [...] questions or concerns. Pager during business hours: [phone] Pager after hours: [phone] * Jeffery Valdez M.D. - 09/03/2023 4:10 [...] [facility]: Diet: Regular Activity: [...] questions or concerns. Pager during business hours: [phone] Pager after hours: [phone] * Paula Hernandez M.D. - 09/02/2023 6:25 [...] questions or concerns. Pager during business hours: [phone] Pager after hours: [phone] * Michelle Willams, Terri., C.W.C.N. - 09/01/2023 11:43 AM CDT [facility] [...] Secondary Dressing Status Clean;Dry;Intact Changed by Wound animal hospital clerk Ongoing management Nursing;Wound/plastic welder Urine Assessment Urine Color Colorless Hematuria Scale [place] Urine Appearance Clear;Sediment Head to toe skin [...] update the patient. Son stated that a Barrel Cleaner visited the home and will be trying to assist both and patient with cares/coordination. OBJECTIVE Patient is [facility] room 111. Referrals were sent to the following agencies: Home Medical Care - Admitted Since 08/30/2023 Service Provider Request Status Selected Services Address Phone Fax Patient Preferred [facility] [place] Pending - Request Sent N/A [address], [facility] [phone] -- [facility] - Home Care Pending - Request Sent N/A [address], [facility] [address] [phone] -- Home Health Care Pending - Request Sent N/A [address], [facility] [address] -- [facility] Pending - Request Sent N/A [address] [facility] [phone] -- [facility] Pending - Request Sent N/A [address] [facility] [phone] -- [facility] Pending - Request Sent N/A [address] [facility] [address], [facility] [phone] -- [facility] Declined Facility Full N/A [address] [facility] [phone] -- ASSESSMENT / PLAN ASSESSMENT Geology Instructor attempted to contact patient on room phone but was unable to get through. Case Manageras able to reach his son who will update that patient that the preferred home health agency was unable to accept and that referrals would be sent to other home health agencies. Requested services arenursing for wound care and catheter and PT/OT. PLAN Geology Instructor will follow up with referrals. Case Manger [...] questions or concerns. Pager during business hours: [phone] Pager after hours: [phone] * Paula Hernandez M.D. - 08/31/2023 10:45 [...] risks associated with surgery and anesthesia including ID, stroke, and VTE were also discussed. Finally, [...] questions or concerns. Pager during business hours: [phone] Pager after hours: [phone] Associated attestation - Mayur Alvarez M.D. - 08/31/2023 12:14 PM CDT I agree with the Urology Chief Service plan for palliative cystoscopy under anesthesia, clot evacuation, proceed as indicated. We will plan for judicious irrigation given his recent bladder surgery and we will perform a cystogram at the end of the procedure. * Demarco Salazar PharmJonahD., R.Ph., [facility] - 08/31/2023 7:19 AM CDT [...] discontinuation of antibiotics. Pedrito Salazar Pharm.D., R.Ph., [facility] Admission Medication History Note Adherence [...] Complete Set By: Demarco Salazar, Karyn, R.Ph., [facility] at 08/31/2023 7:22 AM Taking? [...] an 83 y.o. male transferred to the [facility] ED for further management of gross hematuria. [...] for CBI. He was then transferred to [facility] on 08/12; a CT cystogram was performed [...] was initiated on CBI and transferred to [facility] for further management. On my initial evaluation 08/29 pm, Ojn catheter had clotted off; I personally irrigated [...] for radiation proctitis SOCIAL HISTORY Lives in [place], [place] OBJECTIVE Vitals Blood pressure 134/84, pulse [...] & Screen Expiration 09/02/2023 23:59 Testing Location [place] Imagin08/30/23 EXAM: US URINARY BLADDER COMPARISON: CT [...] hematuria, clot obstruction and was transferred to [facility] for further evaluation and management. Urinary bladder ultrasound showing 5 cm clot burden; catheter draining on fast-rate CBI after multiple rounds of hand irrigation. Plan - Continue CBI - Q2h hr hand irrigations - NPO overnight pending am re-evaluation - Hold Plavix, Xarelto for now The above was discussed with Drs. Venegas and Lefty, the chief urology residents information assurance analyst. Please page chief Urology [place] [phone] [place] [phone] afterhours. documented in this encounter Procedure Notes [...] deprivation therapy. 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 on [...] prolonged inpatient stay, would request transfer to [facility] prior to initiation of hyperbaric [...] 11 Referral Reason: Discharge Planning Primary Language: Vietnamese Respiratory Therapy Director Services Used: No Person(s) present during interview: Person(s) Present During Interview: patient and child Kar History of Present Illness #1 Hematuria Social History Support System: spouse, children, and home care staff Primary Caregiver: self and family Finance/Insurance Primary insurance: MEDICARE A AND B Secondary insurance: [id number] benefits: No Advance Directives Legal Decision Maker: Self Advance Directives: N/A Advance Directives Status: N/A OBJECTIVE Baseline Functional Status Baseline Activities of Daily Living Mobility: Requires aide of device Dressing: Independent Feeding: Independent Bathing: Independent Grooming: Independent Toileting: Independent Behavior: Appropriate, Pleasant, Calm, Cooperative, Oriented Communication: Can write, Talks, Understands speaking, Understands Vietnamese, Reads Shopping: Needs assistance Medication Management: Independent Housekeeping: Needs assistance Meal Prep: Independent Assistive Devices: Walker - front wheeled, Eyeglasses, Hearing aid(s) Agency Name: [facility] Provided: Correction/PT/OT Transportation: Support from family Baseline Services/Resources Primary care clinic and provider: ELSEWHERE, PCP Additional Resources: N/A Anticipated Needs Functional Status: Housekeeping, Shopping, Transportation use (drive car, use taxi/bus), Mobility, Transfer to/from bed, chair, etc., Bathing Assistive Devices: Eyeglasses, Hearing aid(s), Walker - front wheeled Services/Resources: Home health Agency Name: [facility] Provided: Correction/PT/OT Anticipated Modifications to the Patient's Home: None Transportation Needs: Support from family Does the patient need discharge transport arranged?: No Anticipated Discharge Destination: [facility] [place] [facility] [place]ESSMENT / PLAN Assessment: The lead refinery supervisor met with Kalen Vega to discuss his current hospitalization and home goingneeds. The patient was accompanied by son, Kar . The patient was a reliable historian. The role ofRN Geology Instructor was reviewed. The patient reviewed his prior level of care and support system. The patient receives support from his and children. The patient described his living environment as a home with bedroom and bathroom on same floor withstairs to enter with rails. Housekeeping, grocery shopping, meal prep, and other household responsibilities have previously been completed by patient and patient's son. lead refinery supervisor discussed the patient's potential needs at dismissal based on their home setting, previous needs and responsibilities, homebound status, and relevant assessments with the patient. The patient will be safe and supported to return home with [facility] or previous services noted above when [...] PICC removal he would not need care. Geology Instructor will clarifywith home health team regarding if [...] chart and meeting with the patient, the lead refinery supervisor deemed the LACE+/readmission questions were appropriate. The [...] current readmission could have been prevented. The lead refinery supervisor will share this information with the care team. The patient reports understanding that he will dismiss from the hospital when medically stable. Thefollowing potential barriers to dismissal have been identified: Home Health Care Addendum 1230: Geology Instructor called [facility]. They received the referral but declined due to being at capacity. Plan: The patient agrees with the following plan. Patient's anticipated discharge disposition is: Home with Home Healthcare Referrals sent. Transportation upon dismissal will be provided by family--Kar . lead refinery supervisor recommended home health services. lead refinery supervisor provided information regarding the dismissal process and the Senior Linkage Line ([place] Board on Aging) handout. lead refinery supervisor placed or requested the following hospital-based consult orders and/or referrals: None. lead refinery supervisor will follow up with the patient to [...] with updates and/or transition plan to come. lead refinery supervisor encouraged the patient to reach out with [...] CDT Pre-op Diagnosis Hematuria Post-op Diagnosis Hematuria Tube Former Operator A assistant professor of art actively participated and was necessary for one [...] or filling defects. 5. Placement of [address] with 20 cc in [...] The resectoscope was removed and a [address] catheter was placed with 20 [...] secondary to cystostomy closure presenting today from [facility] with concerns for worsening hematuria. He was [...] 08/30/2023 8:48 AM CDT Pt transferred from [facility] via EMS, pt c/o blocked jon cath that started today. Pt had a right uretal stent exchange and an open bladder repair 08/15/23 and was discharged 08/25. Pt had a3 way jon placed at [facility], and transferred here because the clots returned. [...] RN, CPN, CCDS, CCS, CRC Clinical Documentation Network/Telecom Engineer Query created by: ELMER Barker, RN, [...] CDT Office Visit Department of Urology in [place], [place] [address] [place] [phone] Burke Strauss M.D. [address] [place] [phone] Discharge Disposition: Home or Self Care Pending [...] Roxy Romero M.D. LAB BLOOD ADD-ON [facility] [address] [place] [address], [facility] [address] [place] [address] * (ABNORMAL) Basic Metabolic Panel (09/05/2023 4:52 [...] De Paz M.D. LAB BLOOD ADD-ON [facility] [address] [place] [address], [facility] [address] [place] [address] * (ABNORMAL) Basic Metabolic Panel (09/04/2023 8:15 [...] CDT Jeffery Valdez M.D. LAB BLOOD ADD-ON [facility] [place] [address] [place] [address], [facility] [address] [address] * (ABNORMAL) CBC without Differential (09/04/2023 8:15 [...] - 317 x10(9)/L 09/04/2023 9:19 PM CDT [facility] Leukocytes 7.5 3.4 - 9.6 x10(9)/L 09/04/2023 9:19 PM CDT [facility] Blood (Blood, Venous) 09/04/2023 8:15 PM CDT 09/04/2023 8:52 PM CDT Jeffery Valdez M.D. LAB BLOOD ADD-ON [facility] [address] [place] [address], [facility] [address] [place] [address] * Transfuse Red Blood Cells : (09/04/2023 3:30 PM CDT) Jeffery Valdez M.D. BLOOD TRANSFUSION OR DERABLES * Transfuse Red Blood Cells : , 1 Units (09/04/2023 3:30 PM CDT) Jeffery Valdez M.D. BLOOD TRANSFUSION OR DERABLES * Type and Screen (with Reflex Antibody ID) (09/04/2023 10:59 AM CDT) [facility] O Pos Not applicable 09/04/2023 11:46 AM CDT STRM Antibody Screen Negative Negative 09/04/2023 11:59 AM CDT STRM Type & Screen Expiration 09/07/2023 23:59 09/04/2023 11:46 AM CDT STRM Testing Location [place] DEFAULT 09/04/2023 11:21 AM CDT STR Blood (Blood, Venous) 09/04/2023 10:59 AM CDT 09/04/2023 11:21 AM CDT Jeffery Valdez M.D. LAB BLOOD BANK TEST ORDERABLES [facility] [address] [place] [address], [facility] [address] [place] [address] * Heparin Anti-Xa Assay (09/04/2023 7:34 AM CDT) Pathologist [facility] Heparin Anti-Xa, P 0.12 IU/mL [...] Alvarez M.D. LAB BLOOD NON A DD-ON [place] [address] [place] [address], [facility] [address] [place] [address] * (ABNORMAL) CBC without Differential (09/04/2023 7:34 AM CDT) Pathologist [facility] Hemoglobin 7.7(L) 13.2 - 16.6 g/dL 09/04/2023 [...] 7:34 AM CDT 09/04/2023 8:06 AM CDT Puala Hernandez M.D. LAB BLOOD ADD-ON Performing Organization Address City/[facility] Co de Phone Number [facility] [address] [place], [place] [phone] [place] [address] [address] [place] [address] * Heparin Anti-Xa Assay (09/04/2023 12:30 AM [...] A DD-ON Performing Organization Address [facility] Co de Phone Number [facility] [address] [place] [address], [facility]TA[facility] [address] [place] [address] * Bacterial Culture, Aerobic + Susceptibility, Urine (09/03/2023 10:50 AM CDT) [facility] Urine Culture No growth after 1 day of incubation. 09/04/2023 8:52 AM CDT DTL Urine (Urine, Indwelling Catheter) 09/03/2023 10:50 AM CDT 09/03/2023 11:53 AM CDT Comment:Specimen Source Site : Urine Jeffery Valdez M.D. LAB MICROBIOLOGY - G ENERAL ORDERABLES Performing Organization Address [facility] Co de Phone Number [facility] [address] DTL [facility] [address] [place] [address] * (ABNORMAL) CBC without Differential (09/03/2023 3:29 AM CDT) [facility] Hemoglobin 8.0(L) 13.2 - 16.6 g/dL [...] M.D. LAB BLOOD ADD-ON Performing Organization Address City/[facility]/ZIP Co de Phone Number [facility] [address] [place], [place] [address] [address] [place] [address] * Heparin Anti-Xa Assay (09/03/2023 3:29 AM CDT) Pathologist [facility] Heparin Anti-Xa, P 0.26 IU/mL 2023 4:07 AM CDT [facility] Comment: [...] Alvarez M.D. LAB BLOOD NON A DD-ON [id number] [place] [address] * Heparin Anti-Xa Assay (09/02/2023 2:57 AM CDT) [facility] Heparin Anti-Xa, P 0.24 IU/mL 2023 4:09 AM CDT [facility] [...] A DD-ON Performing Organization Address [facility] Co de Phone Number [facility] [address] [place] [address], [facility] DTL [facility] [address] [place] [address] * (ABNORMAL) CBC without Differential (09/01/2023 8:16 PM CDT) [facility] Hemoglobin 8.5(L) 13.2 - 16.6 [...] M.D. LAB BLOOD ADD-ON Performing Organization Address City/[facility]/ZIP Co de Phone Number [facility] [address] [place] [address], [facility] DTL [facility] [address] [place] [address] * Heparin Anti-Xa Assay (09/01/2023 6:50 PM [...] BLOOD NON A DD-ON Performing Organization Address City/[facility]/ZIP Co de Phone Number [facility] [address] [place] [address], [facility] DTL [facility] [address] [place] [address] * APTT (Activated Partial Thromboplastin Time) (09/01/2023 9:05 AM CDT) Pathologist [facility] Activated Partial Thrombopl Time, P 28 25 - 37 sec 09/01/2023 9:35 AM CDT [facility] Blood (Blood, Venous) 09/01/2023 9:05 AM CDT 09/01/2023 9:21 AM CDT Paula Hernandez M.D. LAB BLOOD ADD-ON [facility] [address] [place] [address], [facility] [place] [address] * (ABNORMAL) Basic Metabolic Panel (08/31/2023 9:36 [...] Paula Hernandez M.D. LAB BLOOD ADD-ON [facility] [address] [place] [address], [facility] [address] [place] [address] * (ABNORMAL) CBC without Differential (08/31/2023 9:36 [...] BLOOD ADD-ON [facility] [address] [place] [address], [facility] DTL [facility] [address] [place] [address] * [place] Fluoro Less Than 1 Hour [...] Vieira M.D., M.S. LAB BLOO D ADD-ON [facility] [address] [place] [address], [facility] DTL [facility] [address] [place] [address] * Type and Screen (with Reflex Antibody ID) (08/30/2023 9:50 PM CDT) Pathologist [facility] ABORh O [...] ORDERABLES Performing Organization Address [facility] Co de Phone Number [facility] [address] [place] [address], [facility] STRM [facility] [address] [place] [address] * Lactate (08/30/2023 9:50 PM CDT) Pathologist [facility] Lactate, P 1.8 0.5 - 2.2 mmol/L 08/30/2023 10:09 PM CDT STMA Blood (Blood, Venous) 08/30/2023 9:50 PM CDT 08/30/2023 9:55 PM CDT Shannan Correa D.O., M.H.A. LAB BLOOD NON ADD-ON [facility] [address] [place] [address], [facility] STMA [facility] [address] [place] [address] * (ABNORMAL) Basic Metabolic Panel (08/30/2023 9:49 PM CDT) Pathologist [facility] Potassium, P 3.6 3.6 - 5.2 mmol/L [...] ADD- ON [facility] [address] STMA [facility] [address] [place] [phone] * (ABNORMAL) CBC with Differential, Blood (08/30/2023 [...] Correa D.O., M.H.A. LAB BLOOD ADD- ON [facility] [address] [place] [address], [place] STMA [facility] [address] [place] [address] [facility] [address] [place] [address] * DX Chest AP or PA and [...] CDT) Ventricular Rate ECG/Min 145 BPM MUSE FL Interval 136 ms MUSE QRSD Interval 64 ms MUSE QT Interval 260 ms MUSE QTC Interval 403 ms MUSE P Dawson 44 degrees MUSE R Dawson 9 degrees MUSE T Wave Dawson -76 degrees MUSE 08/30/2023 7:44 PM CDT [...] complexes are now present Reviewed by BETTY Guzmná Kirstin Hughes M.D. ECG ORDERABLES MUSE NA [...] Sarah Morgan RJonahNJonah - Reason: See Provider Order)0239 (Unheld by provider - Provider: Jeffery Valdez [...] give total of 40 mEq Dissolve per tabber recommendations. Do NOT chew or swallow tablet., [...] R.N.)2047 (Given - Provider: Sarah Quintana R.N.) 0912 (Not Given - Provider: Vanessa Leo R.N. - Reason: Order parameters not met) sodium chloride 0.9 % injection 3 mL 3 mL, intravenous, Every 12 hours scheduled, First dose on Tue08/31/23 at 0900, Peripheral Intravenous Catheter and Rapid Infusion Catheter, when no infusion to maintain patency 0950 (Given - Provider: Sarah Morgan R.N.)211 (Given - Provider: Gaye Dillard R.N.) 0814 [...] 0950 (New Bag - Provider: Sarah Morgan RJonahNJonah) 0541 (New Bag - Provider: Gaye Dillard R.N.)0972 (Stopped - Provider: Joy Jacksno R.N.) NaCl 0.9 % irrigation solution 3,000 [...] daily PRN, indigestion, Starting on Tue08/30/23 at 2238 bacitracin 500 unit/gram ointment 1 Application 1 Application, topical, 4 times daily PRN, catheter irritaiton, Starting on Tue08/30/23 at 2234, Apply to tip of penis as needed [...] needed, antiXa less than 0.1, Starting on [facility] 09/03/23 at 1608, Intensity type: [...] 2256 documented in this encounter Care Teams Catalogue Compiler Relationship Specialty Start Date End Date Elsewhere, Pcp PCP - General Internal Medicine 08/13/23 documented as of this encounter
--- OUTSIDE RECORDS SUMMARY | 2023-10-28 12:36 | XMS_ITS | Encounter Summary ---
Author Organization [facility] Address [address] [place] [address] Care Team Providers Care Property And Casualty Insurance Agent Name Role Phone Elsewhere, Pcp Primary Care Provider Unavailabl e Encounter Details Date Type Department Care Team (Late st Contact Info) Description 08/26/2023 Orders Only Department of Urology in [place], [place] [address] [place] [phone] Paula Hernandez M.D. [address] [place] [address] Social History Tobacco Use Types Packs/Day Years Used Date Smoking Tobacco: Never Smokeless Tobacco: Never [facility] Utilities Answer Date Recorded In the past 12 months has [facility] electric, gas, oil, or water [employer] threatened to shut off services in your [...] your living situation today? I have a [facility] place to live 08/13/2023 Sex and Gender Information Value Date Recorded Sex Assigned at Not on file Gender Identity Not on file Sexual Orientation Not on file documented as of this encounter Plan of Treatment Upcoming Encounters Date Type Department Care Team (Late st Contact Info) Description 11/09/2023 11:00 AM CDT Office Visit Department of Urology in [place], [place] [address] [place] [phone] Burke Strauss M.D. [address] [place] [phone] Discharge Disposition: Home or Self Care documented as of this encounter Visit Diagnoses Not on filedocumented in this encounter Care Teams Property And Casualty Insurance Agent Relationship Specialty Start Date End Date Elsewhere, Pcp PCP - General Internal Medicine 08/13/23 documented as of this encounter
--- OUTSIDE RECORDS SUMMARY | 2023-10-28 12:36 | XMS_ITS | Encounter Summary ---
Author Organization [facility] Address [address] [place] [address] Care Team Providers Care Shift Coordinator Name Role Phone Elsewhere, Pcp Primary Care Provider Unavailabl e Encounter Details Date Type Department Care Team (Late st Contact Info) Description 08/30/2023 Documentation Department of Urology in [place], [place] [address] [place] [address] Corin Ring M.D. [address] [place] [address] Social History Tobacco Use Types Packs/Day Years Used Date Smoking Tobacco: Never Smokeless Tobacco: Never [facility] Utilities Answer Date Recorded In the past 12 months has [facility] [employer], gas, oil, or water [employer] threatened to shut off services in your [...] living situation today? I have a [facility] place to live 08/13/2023 Sex and Gender Information Value Date Recorded Sex Assigned at Not on file Gender Identity Not on file Sexual Orientation Not on file documented as of this encounter Plan of Treatment Upcoming Encounters Date Type Department Care Team (Late st Contact Info) Description 11/09/2023 11:00 AM CDT Office Visit Department of Urology in [place], [place] [address] [place] [phone] Burke Strauss M.D. [address] [place] [phone] Discharge Disposition: Home or Self Care documented as of this encounter Visit Diagnoses Not on filedocumented in this encounter Care Teams Shift Coordinator Relationship Specialty Start Date End Date Elsewhere, Pcp PCP - General Internal Medicine 08/13/23 documented as of this encounter
--- OUTSIDE RECORDS SUMMARY | 2023-10-28 12:36 | XMS_ITS | Encounter Summary ---
Author Organization [facility] Address [address] [place] [address] Care Team Providers Care Veterinary Epidemiologist Name Role Phone Elsewhere, Pcp Primary Care Provider Unavailabl e Encounter Details Date Type Department Care Team (Late st Contact Info) Description 08/31/2023 12:25 PM CDT Ancillary Procedure Department of General Surgery Social History Tobacco Use Types Packs/Day Years Used Date Smoking Tobacco: Never Smokeless Tobacco: Never [facility] Utilities Answer Date Recorded In the past 12 months has e electric, gas, oil, or water [employer] threatened to shut off services in your [...] your living situation today? I have a [facility] place to live 08/13/2023 Sex and Gender Information Value Date Recorded Sex Assigned at Not on file Gender Identity Not on file Sexual Orientation Not on file documented as of this encounter Plan of Treatment Upcoming Encounters Date Type Department Care Team (Late st Contact Info) Description 11/09/2023 11:00 AM CDT Office Visit Department of Urology in [place], [place] [address] [place] [address] Burke Strauss M.D. [address] [place] [phone] Discharge Disposition: Home or Self Care documented [...] on filedocumented in this encounter Care Teams Veterinary Epidemiologist Relationship Specialty Start Date End Date Elsewhere, Pcp PCP - General Internal Medicine 08/13/23 documented as of this encounter
--- OUTSIDE RECORDS SUMMARY | 2023-10-28 12:36 | XMS_ITS | Encounter Summary ---
Author Organization [facility] Address [address] [place] [address] Care Team Providers Care Clam Bed Laborer Name Role Phone Elsewhere, Pcp Primary Care Provider Unavailabl e Encounter Details Date Type Department Care Team (Late st Contact Info) Description 09/01/2023 10:05 AM CDT Ancillary Procedure Department of Nursing Social History Tobacco Use Types Packs/Day Years Used Date Smoking Tobacco: Never Smokeless Tobacco: Never [facility] Utilities Answer Date Recorded In the past 12 months has e electric, gas, oil, or water [employer] threatened to shut off services in your [...] have a [facility] place to live 08/13/2023 Sex and Gender Information Value Date Recorded Sex Assigned at Not on file Gender Identity Not on file Sexual Orientation Not on file documented as of this encounter Plan of Treatment Upcoming Encounters Date Type Department Care Team (Late st Contact Info) Description 11/09/2023 11:00 AM CDT Office Visit Department of Urology in [place], [place] [address] [place] [address] Burke Strauss M.D. [address] [place] [phone] Discharge Disposition: Home or Self Care documented [...] on filedocumented in this encounter Care Teams Clam Bed Laborer Relationship Specialty Start Date End Date Elsewhere, Pcp PCP - General Internal Medicine 08/13/23 documented as of this encounter
--- OUTSIDE RECORDS SUMMARY | 2023-10-28 12:36 | XMS_ITS | Encounter Summary ---
Author Organization [facility] Address [address] [place] [address] Care Team Providers Care Ground Crew Linesman Name Role Phone Elsewhere, Pcp Primary Care [...] CDT Office Visit Department of Urology in [address] [phone] Burke Strauss M.D. 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
--- OUTSIDE RECORDS SUMMARY | 2023-10-28 12:37 | XMS_ITS | Encounter Summary ---
Author Organization [facility] Address [address] [place] [address] Care Team Providers Care Towel Sorter Name Role Phone Elsewhere, Pcp Primary Care Provider Unavailabl e Encounter Details Date Type Department Care Team (Latest Contact Info) Description 08/13/2023 3:42 PM CDT - 08/26/2023 4:11 PM CDT Hospital Encounter [facility], Sixth Floor [address] [place] [address] Darnell Garcia M.D. [address] [place] [phone] Boubacar Brock M.D. [address] [place] [address] Decline Functional Status [R53.81] (Primary Dx); Hematuria [...] AM CDT DISCHARGE SUMMARY BRIEF OVERVIEW Hospital: [facility] Discharge Provider: Boubacar Brock M.D. Primary Team: [facility] Urology Surgery - Chief Helga [...] M.D.Wen, Lexiaochuan, M.D.Premo, Hayley, M.D.Botkin, Hannah, M.D. [facility] ROMB OR DISCHARGE DISPOSITION Home or Self Care [1] ACTIVE ISSUES REQUIRING FOLLOW UP OUTPATIENT FOLLOW UP Scheduled Appointments 08/26/2023 1:00 PM KESHIA VERAS [facility] Radiology For appointment details refer [...] he felt completely obstructed and presented to [place] [facility]. [place] Course Attempted Tabares insertion but bladder irrigation was unsuccessful on multiple attempts. Hung 1U pRBC's. Given some volume and transferred to [facility] ICU ICU Course Urology consulted [...] CONSULT TO NUTRITION SUPPORT IP CONSULT TO PRODUCT ENGINEERING MANAGER WOUND CARE CONDITION AT DISCHARGE stable [...] he felt completely obstructed and presented to [place] ED. [place] Course Attempted Tabares insertion but bladder irrigation was unsuccessful on multiple attempts. Hung 1U pRBC's. Given some volume and transferred to [facility] ICU ICU Course Urology consulted [...] PM CDT You were discharged from the [facility] Urology Surgery - Chief A - Blue Service. Please identify this service name if you call with questions after hospitalization. * Attachments The following attachments cannot be sent through Care Everywhere. * Bacitracin (On the skin) (Cambodian) * Cefdinir (By mouth) (Cambodian) * Trospium (By mouth) (Cambodian) documented in this encounter Medications at Time [...] Notes * Emeterio Buchanan P.T., D.P.T., [facility] - 08/26/2023 4:27 PM CDT 08/26/23 0113 Reason Therapy Missed Reason Therapy Missed Receiving other care Attempted to see patient twice today. On 1st attempt patient was receiving blood transfusion and RNwas working on completing cares with him. On 2nd attempt patient was with another provider. * Chary Diamond M.A., O.T., [facility] - 08/26/2023 10:21 AM CDT Occupational Therapy [facility] Inpatient Treatment SUBJECTIVE Patient's Name: Kalen Vega Referring/Attending Provider: Boubacar Brock M.D. Reason for Referral: Occupational Therapy Evaluation and Treatment History of Present Illness: Kalen Vega is a 83 y.o. male who was admitted to [facility] in [place] on 08/13/2023 for Hematuria [R31.9]. Precautions Other Precautions: Abdominal, fall precautions, monitor tachycardia and hypertension Pain Assessment: Pain not reported during session. Subjective Comments: Agreeable to therapy session. Team Communication: The patient's status was discussed and coordination of care occurred with RN, Family/Caregiver, nurse tech Family/Caregiver Present: son and [id number] OBJECTIVE Vital Signs: Vitals not formally assessed [...] through pant leg first. - Adaptive Equipment: Meat And Poultry Inspector TOILETING - Assist Level: Maximal Assist [...] (Edge of bed) - Assist Level: Modified Jbphh - Equipment: bed rail - Therapist Delivery: assessed, instructed, assisted - Adaptive Equipment: leg dishwasher preparer trialed ; however, patient able to move [...] extremity (stiff knee) first. Recommended adaptive equipment: Meat And Poultry Inspector. Toileting - Patient instructed on accurate [...] maximal exertion Handouts provided: Bathroom Safety Equipment [id number], Techniques to Help You Save Energy [id number] Patient was left in bedside chair with [...] health care OBJECTIVE Patient is admitted in [place] 6C -room 121 ASSESSMENT / PLAN NURSERY MANAGERmanager pricing met with patient and son Kar to inform them of home health care acceptance for PT/OT. Patient's son Kar and ooczbcga-ka-czr will provide transportation at the time of discharge. PLAN Patient to discharge home with home health care. Home Medical Care - Admitted Since 08/13/2023 Service Provider Selected Services Address Phone Fax Patient Preferred [facility] [address] [facility] [phone] -- Otolaryngology Rep: Ghazal NURSING: - Complete documentation in the Discharge Navigator including Nursing Report Info and Facility/NextLevel of Care Info - Call report and arrange for the patient's first visit - Send After Visit Summary and required packet of dismissal information with patient, including advance directive. PRIMARY SERVICE: - Please provide a non-[place] home health order for: physical therapy and [...] be provided by family--patient's son Kar and mygyrupc-ko-rtt. 3. broaching machine set up operator recommended reaching out to family, friends, and neighbors for assistance. 4. broaching machine set up operator provided information regarding the dismissal process. [...] Reviewed with patient #1 Hematuria Please page [facility] [phone]) or [facility] ([phone]) Nutrition Support Service pager with questions. * Emeterio Buchanan P.T., D.P.T., [facility] - 08/25/2023 9:35 AM CDT Physical Therapy Inpatient Treatment SUBJECTIVE Patient's Name: Kalen Vega Referring/Attending Provider: Boubacar Brock M.D. Reason for Referral: Physical Therapy Evaluate and Treat History of Present Illness: Kalen Vega is a 83 y.o. male who was admitted to [facility] in [place] on 08/13/2023 for Hematuria [R31.9] Precautions Other [...] fit with adult there which they usually [place] with a difference educated fully know who [...] - 08/25/2023 9:18 AM CDT Occupational Therapy [facility] Inpatient Treatment SUBJECTIVE Patient's Name: Kalen Vega Referring/Attending Provider: Boubacar Brock M.D. Reason for Referral: Occupational Therapy Evaluation and Treatment History of Present Illness: Kalen Vega is a 83 y.o. male who was admitted to [facility] in [place] on 08/13/2023 for Hematuria [R31.9]. Precautions Other [...] including figure four technique. Recommended adaptive equipment: Meat And Poultry Inspector and Sock Aid. Toileting - Patient [...] and modification tools as needed including leg dishwasher preparer and/or bed adjustments. Bathroom DME: - Educated [...] min Total Treatment Time (min): 25 min vIy Hernandez O.T. * Paula Hernandez M.D. - [...] in place draining clear yellow urine I/O ([id number]): Fifty-five cc serosanguineous from the drain 1 [...] locallyfor CBI. He was subsequently transferred to [facility] 08/12 for difficulty irrigating his catheter [...] 2.5 mg BID eliquis initiated 08/15 per [facility] med curbside recs --transition from eliquis [...] have him follow up with his local implementation engineer Comorbidities: --history of DVT status post [...] discussed with Dr. Venegas, chief urology resident econometrician. Pager during business hours: [phone] Pager after hours: [phone] * Emeterio Buchanan P.T., D.P.T., [facility] - 08/24/2023 10:46 AM CDT Physical Therapy Inpatient Treatment SUBJECTIVE Patient's Name: Kalen Vega Referring/Attending Provider: Boubacar Brock M.D. Reason for Referral: Physical Therapy Evaluate and Treat History of Present Illness: Kalen Vega is a 83 y.o. male who was admitted to [facility] in [place] on 08/13/2023 for Hematuria [R31.9] Precautions Other [...] at or below 17 Clinicians answer the -[facility] Inpatient Short Form based on observed [...] baseline. PT Goal #2: Patient will perform ujq-mv-unvle transfer with modified independence and least restrictive [...] Total Kcal/day: 1370 based on 84 % Garcia-Fulton Non-standard additives: K 80 mEq Phos 30 [...] magnesium, phosphorus tomorrow. #1 Hematuria Please page [facility] ([phone]) or [facility] ([phone]) Nutrition Support Service pager with questions. * [...] catheter in place draining light smith I/O ([id number]): Forty-two cc serosanguineous from the drain 2.2 [...] locallyfor CBI. He was subsequently transferred to [facility] 08/12 for difficulty irrigating his catheter [...] 2.5 mg BID eliquis initiated 08/15 per [facility] med curbside recs --transition from eliquis [...] have him follow up with his local implementation engineer Comorbidities: --history of DVT status post [...] discussed with Dr. Venegas, chief urology resident econometrician. Pager during business hours: [phone] Pager after hours: [phone] * Deanne Mike L.G.S.W., M.S.W. - 08/23/2023 11:25 AM CDT SUBJECTIVE Social Work spoke with [facility]. They cannot provide senior care at this time. They can provide OT/PT [...] date of 08/24/23-08/26/23. Referrals sent: [facility] [place] - [facility] (out of service area) [facility] ASSESSMENT / PLAN ASSESSMENT Patient has robust family support including a son living with him. PLAN Patient desires home health care through [facility]. Social Work will continue to follow to provide support. Social Work will continue to assist with discharge needs. Shorty Sun, M.S.W. 08/23/23 * Jazmine Benítez R.N., C.W.C.N. - 08/23/2023 11:[address] [facility] Wound RN consulted to assess Kalen [...] stent and hematuria who is transferred from [place] ED with 3 days of hematuria and [...] None Unable to Measure Y *Wound Bed Closed;[place];Red Tissue Exposed None Odor None *Exudate Amount [...] 30 minutes > 30 minutes Ongoing management Nursing;Wound/tone artist apprentice Partial head to toe skin assessment completed [...] CDT * Emeterio Buchanan, P.T., D.P.T., [facility] - 08/23/2023 11:02 AM CDT Physical Therapy Inpatient Treatment SUBJECTIVE Patient's Name: Kalen Vega Referring/Attending Provider: Boubacar Brock M.D. Reason for Referral: Physical Therapy Evaluate and Treat History of Present Illness: Kalen Vega is a 83 y.o. male who was admitted to [facility] in [place] on 08/13/2023 for Hematuria [R31.9] Precautions Other [...] Measures: [facility] Inpatient Short Form: -[facility] Basic Mobility (V.2) How much help [...] 3-5 steps with a railing?: A Lot -[facility] Basic Mobility (V.2) Raw Score: 17 -[facility] Basic Mobility (V.2) Standardized Score: 39.67 Interpretation: Based on scoring guidelines using the raw score value: Those going to home had an average score at or above 18 Those going to facility had an average score at or below 17 Clinicians answer the -[facility] Inpatient Short Form based on observed [...] baseline. PT Goal #2: Patient will perform ine-op-voueg transfer with modified independence and least restrictive [...] D.P.T., GCS * Demarco Salazar, PharmJonahD., R.Ph., [facility] - 08/23/2023 10:19 AM CDT [...] Total Kcal/day: 1370 based on 84 % Garcia-Fulton Non-standard additives: MAX chloride Thiamine 100 mg [...] magnesium, phosphorus tomorrow. #1 Hematuria Please page [facility] ([phone]) or [facility] ([phone]) Nutrition Support Service pager with questions. * Ivy Hernandez O.T. - 08/23/2023 8:30 AM CDT Occupational Therapy [facility] Inpatient Treatment SUBJECTIVE Patient's Name: Kalen Vega Referring/Attending Provider: Boubacar Brock M.D. Reason for Referral: Occupational Therapy Evaluation and Treatment History of Present Illness: Kalen Vega is a 83 y.o. male who was admitted to [facility] in [place] on 08/13/2023 for Hematuria [R31.9]. Precautions Other [...] catheter in place draining clear yellow I/O ([id number]): 73 cc serosanguineous from the drain Seven [...] locallyfor CBI. 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 [facility] Summary: Diet: NPO, TPN Activity: [...] discussed with Dr. Venegas, chief urology resident econometrician. Pager during business hours: [phone] Pager after hours: [phone] * Chary Diamond M.A., O.T., BCP - [...] [facility] would like referral sent there. Social Work sent referral. OBJECTIVE Patient is anticipated to remain at [place] for 3-5 days. Referrals sent: [facility] - [facility] ASSESSMENT / PLAN ASSESSMENT Patient has robust family support including a son living with him. PLAN Patient desires home health care through [facility]. Social Work will continue to follow [...] 83 y.o. male who was admitted to [facility] in [place] on 08/13/2023 for Hematuria [R31.9] Precautions Other [...] baseline. PT Goal #2: Patient will perform yaw-gb-fvqdf transfer with modified independence and least restrictive [...] Total Kcal/day: 1370 based on 84 % Garcia-Fulton Non-standard additives: MAX chloride Thiamine 100 mg [...] place draining light smith colored urine I/O ([id number]): CBI on slow drip 75 cc serosanguineous [...] locallyfor CBI. He was subsequently transferred to [facility] 08/12 for difficulty irrigating his catheter [...] 2.5 mg BID eliquis initiated 08/15 per [facility] med curbside recs --transition from eliquis [...] have him follow up with his local implementation engineer Comorbidities: --history of DVT status post [...] discussed with Dr. Venegas, chief urology resident econometrician. Pager during business hours: [phone] Pager after hours: [phone] * Qamar Jim, Pharm.DJonah, R.Ph. - 08/21/2023 [...] place draining clear smith colored urine I/O ([id number]): 1800 cc urine output 75 cc serosanguineous [...] locallyfor CBI. He was subsequently transferred to [facility] 08/12 for difficulty irrigating his catheter [...] have him follow up with his local implementation engineer Comorbidities: --history of DVT status post [...] discussed with Dr. Venegas, chief urology resident econometrician. Pager during business hours: [phone] Pager after hours: [phone] * Lizette Harvey M.D. - 08/20/2023 8:08 [...] draining clear thin merlot colored urine I/O ([id number]): 240 cc p.o. intake 760 cc urine output 58 cc serosanguineous from the drain Labs: Hemoglobin 8.9 (8.8) WBC 12.2 (12.0) Cr 1.33 (1.38) Cultures: Blood and urine cultures from 08/12 growing nunez susceptible E coli Repeat blood culture 08/14 negative On ceftriaxone ASSESSMENT AND PLAN: Mr. Vgea is a pleasant 83 y.o. male with [...] locallyfor CBI. He was subsequently transferred to [facility] 08/12 for difficulty irrigating his catheter [...] 2.5 mg BID eliquis initiated 08/15 per [facility] med curbside recs --transition from eliquis [...] have him follow up with his local implementation engineer Comorbidities: --history of DVT status post [...] questions or concerns. Pager during business hours: [phone] Pager after hours: [phone] * Qamar Jim, PharmJonahDJonah, R.Ph. - 08/20/2023 [...] 83 y.o. male who was admitted to [facility] in [place] on 08/13/2023 for Hematuria [R31.9]. Precautions Other [...] about patient's nutritional care please contact pager [phone] on weekdays or [phone] on weekends/holidays. NUTRITION ASSESSMENT: Mr. Vega is [...] care everywhere) ESTIMATED NEEDS: Total Calorie Needs: 7853-0332 calories/day Method to Estimate Energy Needs: kcal/kg [...] 83 y.o. male who was admitted to [facility] in [place] on 08/13/2023 for Hematuria [R31.9] Precautions Other [...] Measures: [facility] Inpatient Short Form: -[facility] Basic Mobility (V.2) How much help [...] 3-5 steps with a railing?: A Little -[facility] Basic Mobility (V.2) Raw Score: 18 -[facility] Basic Mobility (V.2) Standardized Score: 41.05 Interpretation: Based on scoring guidelines using the raw score value: Those going to home had an average score at or above 18 Those going to facility had an average score at or below 17 Clinicians answer the -[facility] Inpatient Short Form based on observed [...] Ongoing PT Goal #2: Patient will perform wur-ay-hnkey transfer with modified independence and least restrictive [...] in place draining clear pink urine I/O ([id number]): 370 p.o. intake 1 L urine output [...] locallyfor CBI. He was subsequently transferred to [facility] 08/12 for difficulty irrigating his catheter [...] 2.5 mg BID eliquis initiated 08/15 per [facility] med curbside recs --transition from eliquis [...] have him follow up with his local implementation engineer Comorbidities: --history of DVT status post [...] questions or concerns. Pager during business hours: [phone] Pager after hours: [phone] * Lisa Seaman, O.T., [facility] - 08/18/2023 11:15 AM CDT Occupational Therapy [facility] Inpatient Treatment SUBJECTIVE Patient's Name: Kalen Vega Referring/Attending Provider: Boubacar Brock M.D. Reason for Referral: Occupational Therapy Evaluation and Treatment History of Present Illness: Kalen Vega is a 83 y.o. male who was admitted to [facility] in [place] on 08/13/2023 for Hematuria [R31.9]. Precautions Other [...] doffing over it last. Recommended adaptive equipment: Meat And Poultry Inspector and Sock Aid. Patient was left in bedside chair, with nursing/RIB CUTTER at end of session with call light [...] 83 y.o. male who was admitted to [facility] in [place] on 08/13/2023 for Hematuria [R31.9] Precautions Other [...] following coordination of care occurred with the control supervisor/Caregiver Present: No Patient was left in bedside [...] Progressing PT Goal #2: Patient will perform svo-at-pfpkw transfer with modified independence and least restrictive [...] in place draining clear pink urine I/O ([id number]): 1.2 L p.o. intake 1 L urine [...] locallyfor CBI. He was subsequently transferred to [facility] 08/12 for difficulty irrigating his catheter [...] diet later today follow up vascular medicine [facility] Summary: Diet: currently limited clears Activity: Ad kong DVT PPX: heparin drip GI PPX: Pantoprazole Bowel Regimen:N/A IVF: none Abx/Microbiology: Ceftriaxone Pain Control: Tylenol, oxycodone 08/18. Scheduled trospium Home Meds Resumed: Metoprolol, tamsulosin, rosuvastatin Held Home Meds: None Consults: None Paula Hernandez M.D. 08/18/2023 6:02 AM CDT Please page the Urology Chief Service with questions or concerns. Pager during business hours: [phone] Pager after hours: [phone] * Tayler Greenwood M.D., M.Ed. - 08/17/2023 [...] the patient follow up with his primary implementation engineer at discharge we will which we will make sure he does. we appreciate their time in reviewing this case. * Chance Cassidy PharmDayday, R.Ph. - 08/17/2023 11:37 AM CDT Images from the original note were not included. Admission Medication History Note Adherence issues: Unable to assess Medication list source: Pharmacy or dispense records Medication related information: Med hx completed by Irvin Franoc Pharm.D., R.Ph. at 08/14/2023 10:22 AM Per [...] Ringer's Lactated Ringer's * Lisa Seaman, O.T., [facility] - 08/17/2023 10:47 AM CDT Occupational Therapy [facility] Inpatient Treatment SUBJECTIVE Patient's Name: Kalen Vega Referring/Attending Provider: Boubacar Brock M.D. Reason for Referral: Occupational Therapy Evaluation and Treatment History of Present Illness: Kalen Vega is a 83 y.o. male who was admitted to [facility] in [place] on 08/13/2023 for Hematuria [R31.9]. Precautions Other [...] in place draining clear pink urine I/O ([id number]): NG tube 200 cc Two hundred sixty-five [...] locallyfor CBI. He was subsequently transferred to [facility] 08/12 for difficulty irrigating his catheter [...] questions or concerns. Pager during business hours: [phone] Pager after hours: [phone] * Audi De Luna P.T., D.P.T. - [...] in place draining clear pink urine I/O ([id number]): NG tube 200 cc Two hundred sixty-five [...] locallyfor CBI. He was subsequently transferred to [facility] 08/12 for difficulty irrigating his catheter [...] will discuss with Cardiology need for both [facility] Summary: Diet: NPO Activity: Ad kong DVT PPX: Ashley heparin GI PPX: Pantoprazole Bowel Regimen:N/A IVF: LR 75 Abx/Microbiology: Ceftriaxone Pain Control: Tylenol, oxycodone 08/18. Scheduled trospium Home Meds Resumed: Metoprolol, tamsulosin, rosuvastatin Held Home Meds: None Consults: None Signed by: Paula Hernandez M.D. 08/16/2023 6:02 AM CDT Please page the Urology Chief Service with questions or concerns. Pager during business hours: [phone] Pager after hours: [phone] * Paula Hernandez M.D. - 08/15/2023 9:09 AM CDT PROGRESS NOTE: No events. AFVSS. Pain controlled. No flatus. No further emesis overnight. Abdomen more distended than yesterday but remained soft, tender to deep palpation only, no rebound. Twenty-four Wallisian Alcock three-way catheter remains off CBI, draining [...] for CBI. He was subsequently transferred to [facility] 08/12 for difficulty irrigating his catheter [...] above was discussed with Dr. Brock, urology customer service sales consultant on-call who is in agreement [...] Family to bring his home enzalutamide from [place] Irvin Franco Pharm.D., R.Ph. * Jakob De Paz M.D. - 08/14/2023 11:34 AM CDT PROGRESS NOTE: No events. AFVSS. Pain controlled. No flatus. Nauseous and had 2 episodes of emesis. Abdomen more distended than yesterday but remained soft, tender to deep palpation only, no rebound. Twenty-four Wallisian Alcock three-way catheter remains off CBI, draining [...] for CBI. He was subsequently transferred to [facility] 08/12 for difficulty irrigating his catheter [...] above was discussed with Dr. Brock, urology customer service sales consultant on-call who is in agreement [...] Patient discussed with Dr. Sylvester. Page [id number] Carlos Alberto Henson M.D. PGY-1 CCM 3 [...] who have asked we place a 24 Wallisian 3-way urinary catheter pending evaluation. We will [...] stent and hematuria who is transferred from [facility] ED with 3 days of hematuria [...] him to present to local hospital in [place]. OSH Course: His hemoglobin was in the [...] Insecurity: No Food Insecurity (02/16/2022) [facility] [employer] [facility], [facility] In[facility] Worried About Running Out of Food in the Last Year: 1 Transportation Needs: No Transportation Needs (02/16/2022) Received from [employer] [facility], [facility] Transportation Needs Lack of Transportation (Medical): 1 Housing Stability: Low Risk (02/16/2022) Received from [employer] [facility], [facility] Housing Stability Unable to Pay for Housing [...] Dr. Sylvester and Dr. Rodriguez. Page [id number] Carlos Alberto Henson M.D. PGY-1 CCM 3 [...] As expected PRIMARY PROCEDURALIST FAY Cerna MD [phone] ASSISTANTS none COMPLICATIONS None. DRAINS None. IMPLANTS [...] peripheral vein targets. Ultrasound used for assessment: [employer] Provider contacted (include name): Uro Surg [...] 14 -- AST U/L 25 -- Radiology: @[id number]@ Swallow Assessment: No data to display ASSESSMENT / PLAN #1 Hematuria ASSESSMENT Currently we are asked to visit with Mr. Vega for consideration of parenteral nutrition. Nutrition Needs: Height: 180 cm Admission Weight: 91.2 kg (08/13/2023) Current Weight: 90.2 kg BMI (Calculated): 27.8 kg/m?? Total Calorie Needs: 1087-2048 calories/day Method to Estimate Energy Needs: Garcia-Fulton ( ) Weight Used for Equation Calculations: [...] on electrolytes Please call NSS pager at [phone] at [facility] or [phone] at [facility] with any additional questions. * Gilbert [...] STENT EXCHANGE; Surgeon: Boubacar Brock M.D.; Location: [facility] ROMB OR FAMILY HISTORY No [...] values in this interval not displayed. Radiology: @[id number]@ Swallow Assessment: No data to display ASSESSMENT / PLAN #1 Hematuria ASSESSMENT Currently we are asked to visit with Mr. Vega for consideration of parenteral nutrition. Nutrition Needs: Height: 180 cm Admission Weight: 91.2 kg (08/13/2023) Current Weight: 90.2 kg BMI (Calculated): 27.8 kg/m?? Total Calorie Needs: 1222-3378 calories/day Method to Estimate Energy Needs: kcal/kg [...] on electrolytes Please call NSS pager at [phone] at [facility] or [phone] at [facility] with any additional questions. BILLING/CODING Total [...] stent along with other stents and apparently implementation engineer in the past I recommended indefinite [...] 20 mL/hr, intravenous, Continuous, Frieda Garner APRN, SEWER CLEANER, Last Rate: 20 mL/hr at 08/15/23 1459, [...] but he can discuss this with his implementation engineer at home. We need to balance [...] 83 y.o. male who was admitted to [facility] in [place] on 08/13/2023 for Hematuria [R31.9]. Relevant Medical History: Kalen Vega is a 83 y.o. 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 Outcome Measures: -[facility] Inpatient Short Form: -[facility] Basic Mobility (V.2) How much help [...] 3-5 steps with a railing?: A Lot -[facility] Basic Mobility (V.2) Raw Score: 17 -[facility] Basic Mobility (V.2) Standardized Score: 39.67 Interpretation: Based on scoring guidelines using the raw score value: Those going to home had an average score at or above 18 Those going to facility had an average score at or below 17 Clinicians answer the -[facility] Inpatient Short Form based on observed [...] following coordination of care occurred with the control supervisor/Caregiver Present: SonFavio Patient was left in bedside [...] 83 y.o. male who was admitted to [facility] in [place] on 08/13/2023 for Hematuria with cystotomy and [...] Min assist for mobility. Required assist for [id number] for force generation and is generally standby [...] Ongoing PT Goal #2: Patient will perform [id number] transfer with modified independence and least restrictive [...] 83 y.o. male who was admitted to [facility] in [place] on 08/13/2023 for Hematuria [R31.9]. Relevant Medical [...] with RN, PT Family/Caregiver Present: Son and [id number]. Home Living and Equipment: Lives with: Spouse/Significant [...] walker, Single point cane Adaptive Equipment Owned: Meat And Poultry Inspector, Long Handled Shoe Horn Other DME Owned: Regular flat bed Prior Level of Function and Mobility: Basic Activities of Daily Living: Independent Instrumental Activities of Daily Living: Required Assistance: Laundry son assists with laundry and cooking Functional Mobility: Independent Driving: Yes Occupational Role: Retired Leisure Interests: watch movies, plays Down train, meets friends for breakfast. Patient/Caregiver Goals: [...] all are a great support. 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 Patient expressed understanding and was [...] engaged in conversation with his family when medical social worker entered the room. He was [...] locally at approximately 3:00 a.m. a 22 Wallisian three-way catheter was placed and CBI wasinitiated. Unfortunately he clotted off the catheter multiple times despite manual irrigations, started to develop hypotension and tachycardia [facility] He relays the above [...] non-distended, non-peritonitic Extremities: No edema : 22 Wallisian three-way Tabares catheter draining a minimal amount [...] urinary retention Given his non draining 22 Wallisian three-way catheter the Urology techs and I subsequently exchanged this for a 24 Wallisian three-way Alcock in the usual sterile fashion. [...] to follow [place] [phone] with questions or concerns Sixto Cain M.D. [...] peripheral vein targets. Ultrasound used for assessment: [employer] Provider contacted (include name): Uro Surg [...] CDT Patient Transfer Note Patient transferred to: [facility] Room: [facility] Accompanied by: JAMEL Garcia Report [...] signs? YES * Sixto Teague R.R.TJonah, L.R.T., COMM[facility]CIAL [facility] - 08/14/2023 7:00 AM CDT Patient [...] the last 24hours. 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 His existing 24 Wallisian three-way Tabares catheter was noted to be [...] additional tissue for additional coverage. A 24 Wallisian three-way catheter was placed with 15 cc in the balloon. This irrigated to light clear pink. A 15 Wallisian YARELI drain wasplaced into the pelvis exiting left lower quadrant. The fascia was closed with interrupted and [id number] 0 PDS. Fat was approximated using 3-0 [...] RN, CPN, CCDS, CCS, CRC Clinical Documentation Boom Worker Query created by: ELMER Barker, RN, CPN, [...] stent and hematuria who is transferred from [place] ED with 3 days of hematuria & [...] RN, CPN, CCDS, CCS, CRC Clinical Documentation Boom Worker Query created by: ELMER Barker, RN, CPN, [...] he felt completely obstructed and presented to [place] ED. [place] Course Attempted Tabares insertion but bladder irrigation was unsuccessful on multiple attempts. Hung 1U pRBC's. Given some volume and transferred to [facility] ICU ICU Course Urology consulted [...] CDT Office Visit Department of Urology in [place], [place] [address] [place] [id number] Burke Strauss M.D. [address] [place] [phone] Discharge Disposition: Home or Self Care Pending [...] Antibody ID) (08/26/2023 6:50 AM CDT) [facility] Not applicable 08/26/2023 7:16 AM CDT STRM Antibody Screen Negative Negative 08/26/2023 7:29 AM CDT STRM Type & Screen Expiration 08/29/2023 23:59 08/26/2023 7:16 AM CDT STRM Testing Location [place] DEFAULT 08/26/2023 6:57 AM CDT STRM Blood (Blood, Venous) 08/26/2023 6:50 AM CDT 08/26/2023 6:57 AM CDT Paula Hernandez M.D. LAB BLOOD BANK TEST ORDERABLES Performing Organization Address [facility]UST Co de Phone Number [facility] [address] [place] [address], [facility] STRM [facility] [address] [place] [address] * (ABNORMAL) CBC without Differential (08/26/2023 3:20 [...] LAB BLOOD ADD-ON Performing Organization Address City/[facility]/ZIP Co de Phone Number [facility] [address] [place] [address], [facility] DTL [facility] [address] [place] [address] * Magnesium (08/26/2023 3:20 AM CDT) Magnesium, S 2.1 1.7 - 2.3 mg/dL 08/26/2023 4:04 AM CDT DTL Blood (Blood, Venous) 08/26/2023 3:20 AM CDT 08/26/2023 3:50 AM CDT Boubacar Brock M.D. LAB BLOOD ADD-ON [facility] [address] [place] [address], [facility] DTL [facility] [address] [place] [address] * (ABNORMAL) Renal Function Panel (08/26/2023 3:20 [...] LAB BLOOD ADD-ON Performing Organization Address [facility]/ZIP Co de Phone Number [facility] [address] [place], [place] [phone] [place] [address] [place] [address] * Heparin Anti-Xa Assay (08/26/2023 3:20 AM [...] Hoyt M.D. LAB BLOOD NON ADD -ON [facility] [address] [place] [address], [facility] [address] [place] [address] * (ABNORMAL) CBC without Differential (08/25/2023 3:24 [...] LAB BLOOD ADD-ON [facility] [address] [place] [address], [facility] [address] [place] [address] * (ABNORMAL) Renal Function Panel (08/25/2023 3:24 AM CDT) [facility] Potassium, S 4.1 3.6 - 5.2 mmol/L [...] LAB BLOOD ADD-ON Performing Organization Address City/[facility]/ZIP Co de Phone Number [facility] [address] [place] [address], [facility] [address] [place] [address] * Magnesium (08/25/2023 3:24 AM CDT) [facility] Magnesium, S 2.2 1.7 - 2.3 mg/dL 08/25/2023 4:36 AM CDT DTL Blood (Blood, Venous) 08/25/2023 3:24 AM CDT 08/25/2023 4:19 AM CDT Boubacar Brock M.D. LAB BLOOD ADD-ON Performing Organization Address City/[facility]/ZIP Co de Phone Number [facility] [address] [place] [address], [facility] [address] [place] [address] * Heparin Anti-Xa Assay (08/25/2023 3:24 AM CDT) [facility] Heparin Anti-Xa, P 0.31 IU/mL 2023 4:09 [...] Boubacar Brock M.D. LAB BLOOD NON ADD-ON [facility] [address] [place], [place] [phone] [place] [address] [address] [place] [address] * (ABNORMAL) CBC without Differential (08/24/2023 5:28 AM CDT) [facility] Hemoglobin 8.1(L) 13.2 - 16.6 g/dL 08/24/2023 [...] LAB BLOOD ADD-ON Performing Organization Address City/[facility]/ZIP Co de Phone Number [facility] [address] [place] [address] * Magnesium (08/24/2023 5:28 AM CDT) Magnesium, S 2.3 1.7 - 2.3 mg/dL 08/24/2023 6:19 AM CDT DTL Blood (Blood, Venous) 08/24/2023 5:28 AM CDT 08/24/2023 6:00 AM CDT Boubacar Brock M.D. LAB BLOOD ADD-ON Performing Organization Address [facility] Co de Phone Number [facility] [address] [place] [address], [place] [address] * (ABNORMAL) Renal Function Panel (08/24/2023 5:28 [...] CDT Boubacar Brock M.D. [place] [address], [facility] [place] [address] * Heparin Anti-Xa Assay (08/24/2023 5:28 AM [...] Boubacar Brock M.D. LAB BLOOD NON ADD-ON [facility] [address] [place] [address], [facility] [address] [place] [address] * (ABNORMAL) Potassium (08/23/2023 9:58 PM CDT) Pathologist [facility] Potassium, S 3.5(L) 3.6 - 5.2 mmol/L 08/23/2023 10:45 PM CDT DT Blood (Blood, Venous) 08/23/2023 9:58 PM CDT 08/23/2023 10:30 PM CDT Boubacar Brock M.D. LAB BLOOD ADD-ON Performing Organization Address City/[facility]/ZIP Co de Phone Number [facility] [address] [place] [address], [facility] [address] [place] [address] * (ABNORMAL) Phosphorus Inorganic (08/23/2023 9:58 PM CDT) [facility] Phosphorus (Inorganic), S 2.1(L) 2.5 - 4.5 mg/dL 08/23/2023 10:45 PM CDT DT Blood (Blood, Venous) 08/23/2023 9:58 PM CDT 08/23/2023 10:30 PM CDT Paula Hernandez M.D. LAB BLOOD ADD-ON [facility] [address] [place], [place] [address] [address] [place] [address] * Heparin Anti-Xa Assay (08/23/2023 11:37 AM CDT) [facility] Heparin Anti-Xa, P 0.51 IU/mL 2023 12:42 [...] Boubacar Brock M.D. LAB [place] [address], [facility] [place] [address] * (ABNORMAL) CBC without Differential (08/23/2023 3:42 AM CDT) [facility] Hemoglobin 8.3(L) 13.2 - 16.6 g/dL 08/23/2023 [...] LAB BLOOD ADD-ON Performing Organization Address City/[facility] Co de Phone Number [facility] [address] [place] [address] * Triglycerides (08/23/2023 3:42 AM CDT) Triglycerides 106 mg/dL 08/23/2023 4:50 AM CDT DT Comment: ----REFERENCE VALUE---- Normal: <150 mg/dL Borderline High: 150-199 mg/dL High: 200-499 mg/dL Very High: > or =500 mg/dL Fasting (8 HR or more) Yes 08/23/2023 4:19 AM CDT DT Blood (Blood, Venous) 08/23/2023 3:42 AM CDT 08/23/2023 4:19 AM CDT Boubacar rBock M.D. LAB BLOOD ADD-ON Performing Organization Address [facility] Co de Phone Number [facility] [address] [place], [place] [phone] [place] [address] 200 [place] [address] * Magnesium (08/23/2023 3:42 AM CDT) Magnesium, S 2.2 1.7 - 2.3 mg/dL 08/23/2023 4:50 AM CDT DTL Blood (Blood, Venous) 08/23/2023 3:42 AM CDT 08/23/2023 4:19 AM CDT Boubacar Brock M.D. LAB BLOOD ADD-ON Performing Organization Address City/[facility] Co de Phone Number [facility] [address] [place] [address], [facility] DTL [facility] [address] [place] [address] * (ABNORMAL) Renal Function Panel (08/23/2023 3:42 [...] M.D. LAB BLOOD ADD-ON [facility] [address] [place], [place] [address] [place] [address] * Heparin Anti-Xa Assay (08/23/2023 3:41 AM [...] LAB BLOOD NON ADD-ON Performing Organization Address City/State/RUST Co de Phone Number [facility] [address] [place], [place] [address] [place] [address] * Glucose, POCT (08/22/2023 11:38 PM CDT) Glucose, POCT, B 117 70 - 140 mg/dL 08/23/2023 1:06 AM CDT PCLX Site Capillary 08/23/2023 1:06 AM CDT PCLX Last Intake NPO 08/23/2023 1:06 AM CDT PCLX Blood 08/22/2023 11:3 8 PM CDT 08/23/2023 1:06 AM CDT Unknown Provider LAB POCT ORDERABLES- MANUAL POC [facility] [address] [place] [address], [facility] PCLX [facility] [address] [place] [address] * Heparin Anti-Xa Assay (08/22/2023 10:14 PM [...] BLOOD NON ADD-ON Performing Organization Address City/[facility]/ZIP Co de Phone Number [facility] [address] [place] [address], [facility] [address] [place] [address] * CT Abdomen Pelvis without IV Contrast [...] Boubacar Brock M.D. LAB BLOOD NON ADD-ON [address] [address], [facility] [place] [address] * Creatinine, Body Fluid (08/22/2023 3:30 PM CDT) Pathologist [facility] Creatinine, BF 1.2 See Comment mg/dL [...] transport rates. All other fluids refer to [email or web address] for further interpretive information. This test has been modified from the accountant bookkeeper's instructions. Its performance characteristics were determined by [facility] in a manner consistent with CLIA requirements. This test has not been cleared or approved by the U.S. Food and Drug Administration. Fluid Type, Creatinine Fluid, Abdomen 08/22/2023 3:52 PM CDT DTL Fluid (Abdomen) 08/22/2023 3 :30 PM CDT 08/22/2023 6:36 PM CDT Corin Ring M.D. LAB BODY FLUIDS AND STOOLS ORDERABLES [facility] [address] [place] [address], [facility] [address] [place] [address] * Transfuse Red Blood Cells : (08/22/2023 [...] of a right IJ vein single-lumen 4 Wallisian tunneled PowerPICC ready for immediate use. NR [...] advanced into the IVC and a 4 Wallisian dilator advanced over the wire and attached to a one-way stopcock. A suitable exit site in the right anterior chest was anesthetized and a small incision made. A 4 Wallisian single-lumen PowerPICC was then tunneled from the [...] Wireadvanced into the IVC and a 4 Wallisian dilator advanced over the wire andattached to a one-way stopcock. A suitable exit site in the right anteriorchest was anesthetized and a small incision made. A 4 Wallisian single-lumen PowerPICC was then tunneled fromthe skin [...] of a right IJ vein single-lumen 4 Wallisian tunneled PowerPICCready for immediate use. NR Kimi [...] LAB BLOOD ADD-ON Performing Organization Address City/[facility]/ZIP Co de Phone Number [facility] [address] [place] [address] * Type and Screen (with Reflex Antibody ID) (08/22/2023 2:55 AM CDT) [facility] ABOR O Pos Not applicable 08/22/2023 3:25 AM CDT STRM Antibody Screen Negative Negative 08/22/2023 3:38 AM CDT STRM Type & Screen Expiration 08/25/2023 23:59 08/22/2023 3:25 AM CDT STRM Testing Location [place] DEFAULT 08/22/2023 3:07 AM CDT STRM Blood (Blood, Venous) 08/22/2023 2:55 AM CDT 08/22/2023 3:07 AM CDT Latisha Whitehead M.D. LAB BLOOD BANK T EST ORDERABLES Performing Organization Address City/[facility]/ZIP Co de Phone Number [facility] [address] [place] [address], [facility] [place] [address] * (ABNORMAL) Comprehensive Metabolic Panel (08/22/2023 2:40 AM CDT) [facility] Potassium, S 3.2(L) 3.6 - 5.2 mmol/L [...] LAB BLOOD ADD-ON Performing Organization Address City/[facility]UST Co de Phone Number [facility] [address] [place] [address], [facility] [address] [place] [address] * Heparin Anti-Xa Assay (08/22/2023 2:40 AM [...] BLOOD NON AD D-ON Performing Organization Address City/[facility]/ZIP Co de Phone Number [facility] [address] [place] [address], [facility] [address] [place] [address] * (ABNORMAL) APTT (Activated Partial Thromboplastin Time) (08/22/2023 2:40 AM CDT) Pathologist [facility] Activated Partial Thrombopl Time, P 64(H) 25 - 37 sec 08/22/2023 3:12 AM CDT STMA Blood (Blood, Venous) 08/22/2023 2:40 AM CDT 08/22/2023 3:01 AM CDT Latisha Whitehead M.D. LAB BLOOD ADD-ON [facility] [address] [place] [address] * Triglycerides (08/21/2023 7:32 AM CDT) Triglycerides [...] LAB BLOOD ADD-O N Performing Organization Address City/[facility]/ZIP Co de Phone Number [facility] [address] [place] [address] * Phosphorus Inorganic (08/21/2023 7:32 AM CDT) Phosphorus (Inorganic), S 2.6 2.5 - 4.5 mg/dL 08/21/2023 9:03 AM CDT DTL Blood (Blood, Venous) 08/21/2023 7:32 AM CDT 08/21/2023 8:38 AM CDT Lizette Harvey M.D. LAB BLOOD ADD-O N [facility] [address] [place] [address] * Magnesium (08/21/2023 7:32 AM CDT) Magnesium, S 2.3 1.7 - 2.3 mg/dL 08/21/2023 9:03 AM CDT DTL Blood (Blood, Venous) 08/21/2023 7:32 AM CDT 08/21/2023 8:38 AM CDT Lizette Harvey M.D. LAB BLOOD ADD-O N [facility] [address] [place] [address], [facility] [address] [place] [address] * (ABNORMAL) Basic Metabolic Panel (08/21/2023 7:32 AM CDT) Pathologist [facility] Potassium, S 3.3(L) 3.6 - 5.2 mmol/L [...] LAB BLOOD ADD-O N Performing Organization Address City/[facility]/ZIP Co de Phone Number [facility] [address] [place], [place] [address] [place] [address] DTL [facility] [address] [place] [address] * (ABNORMAL) CBC without Differential (08/21/2023 7:32 [...] LAB BLOOD ADD-O N Performing Organization Address City/[facility]/ZIP Co de Phone Number [facility] [address] [place] [address], [facility] DTL [facility] [address] [place] [address] * Heparin Anti-Xa Assay (08/21/2023 7:32 AM CDT) Pathologist [facility] Heparin Anti-Xa, P 0.49 IU/mL 2023 8:31 AM CDT [facility] Comment: [facility] therapeutic range: ?? 0.30-0.70 [...] BLOOD NON ADD-ON Performing Organization Address City/[facility]/ZIP Co de Phone Number [facility] [address] [place] [address] * (ABNORMAL) APTT (Activated Partial Thromboplastin Time) (08/21/2023 7:32 AM CDT) [facility] Activated Partial Thrombopl Time, P 49(H) 25 - 37 sec 08/21/2023 8:31 AM CDT [facility] Blood (Blood, Venous) 08/21/2023 7:32 AM CDT 08/21/2023 8:06 AM CDT Boubacar Brock M.D. LAB BLOOD ADD-ON [facility] [address] [place] [address] * Place peripherally inserted central catheter (PICC) [...] the atrophic right kidney. Lizette Harvey M.D. [facility] PROCEDUR [facility] * (ABNORMAL) Basic Metabolic Panel (08/20/2023 3:19 AM CDT) Pathologist [facility] Potassium, S 3.7 3.6 - 5.2 [...] CDT Paula Hernandez M.D. LAB BLOOD ADD-ON [place] [address] [facility] [address] [place] [address] * (ABNORMAL) CBC without Differential (08/20/2023 3:19 [...] LAB BLOOD ADD-ON Performing Organization Address City/[facility]/ZIP Co de Phone Number [facility] [address] [place] [address] * (ABNORMAL) APTT (Activated Partial Thromboplastin Time) (08/20/2023 3:19 AM CDT) Activated Partial Thrombopl Time, P 52(H) 25 - 37 sec 08/20/2023 4:33 AM CDT DTL Blood (Blood, Venous) 08/20/2023 3:19 AM CDT 08/20/2023 4:10 AM CDT Boubacar Brock M.D. LAB BLOOD ADD-ON Performing Organization Address [facility] Co de Phone Number [facility] [address] [place], [place] [phone] [place] [address] 200 [place] [address] * (ABNORMAL) APTT (Activated Partial Thromboplastin Time) (08/19/2023 10:57 AM CDT) Activated Partial Thrombopl Time, P 54(H) 25 - 37 sec 08/19/2023 11:44 AM CDT DTL Blood (Blood, Venous) 08/19/2023 10:57 AM CDT 08/19/2023 11:26 AM CDT Boubacar Brock M.D. LAB BLOOD ADD-ON [facility] [address] [place], [place] [phone] [place] [address] [address] [place] [address] * (ABNORMAL) APTT (Activated Partial Thromboplastin Time) (08/19/2023 4:51 AM CDT) Activated Partial Thrombopl Time, P 59(H) 25 - 37 sec 08/19/2023 5:53 AM CDT DTL Blood (Blood, Venous) 08/19/2023 4:51 AM CDT 08/19/2023 5:36 AM CDT Boubacar Brock M.D. LAB BLOOD ADD-ON [facility] [address] [place] [address], [facility] [address] [place] [address] * (ABNORMAL) APTT (Activated Partial Thromboplastin Time) (08/18/2023 10:03 PM CDT) [facility] [facility] Activated Partial Thrombopl Time, P 63(H) 25 - 37 sec 08/18/2023 10:41 PM CDT DT Blood (Blood, Venous) 08/18/2023 10:03 PM CDT 08/18/2023 10:19 PM CDT Boubacar Brock M.D. LAB BLOOD ADD-ON Performing Organization Address City/[facility]/ZIP Co de Phone Number [facility] [address] [place] [address], [facility] [address] [place] [address] * (ABNORMAL) APTT (Activated Partial Thromboplastin Time) (08/18/2023 2:50 PM CDT) Pathologist [facility] Activated Partial Thrombopl Time, P 64(H) 25 - 37 sec 08/18/2023 3:25 PM CDT DTL Blood (Blood, Venous) 08/18/2023 2:50 PM CDT 08/18/2023 3:07 PM CDT Boubacar Brock M.D. LAB BLOOD ADD-ON [facility] [address] [place], [place] [address] [address] [place] [address] * (ABNORMAL) APTT (Activated Partial Thromboplastin Time) (08/18/2023 6:42 AM CDT) Activated Partial Thrombopl Time, P 61(H) 25 - 37 sec 08/18/2023 7:28 AM CDT DTL Blood (Blood, Venous) 08/18/2023 6:42 AM CDT 08/18/2023 7:04 AM CDT Boubacar Brock M.D. LAB BLOOD ADD-ON [facility] [address] [place], [place] [address] [place] [address] 200 [place] [address] * (ABNORMAL) APTT (Activated Partial Thromboplastin Time) (08/17/2023 11:04 PM CDT) [facility] Activated Partial Thrombopl Time, P 40(H) 25 - 37 sec 08/17/2023 11:46 PM CDT DT Blood (Blood, Venous) 08/17/2023 11:04 PM CDT 08/17/2023 11:31 PM CDT Boubacar Brock M.D. LAB BLOOD ADD-ON [facility] 200 [place], [place] [address] [place] [address] 200 [place] [address] * US Lower Extremity Veins Bilateral (08/17/2023 [...] and management can be found on the [employer] site. Link [email or web address]/[email or web address]/[email or web address]/[email or web address] Findings discussed with ??Tayler Greenwood, ?? ([id number]) on 08/17/2023 7:11 PM. Procedure Note Jj [...] thrombosis and management can be found on theAskATCOR HoldingsExpert site. [email or web address]/[email or web address]/[email or web address] [email or web address] Findings discussed with Tayler Greenwood MD ([id number]) on 08/17/2023 7:11 PM. IMPRESSION: 1. Aging, [...] LAB BLOOD ADD-ON Performing Organization Address [facility]/RUST Co de Phone Number [facility] [address] [place] [address], [facility] [address] [place] [address] * ECG 12 Lead (08/16/2023 9:43 PM CDT) Ventricular Rate ECG/Min 134 BPM MUSE NJ Interval 136 ms MUSE QRSD Interval 76 ms MUSE QT Interval 298 ms MUSE QTC Interval 445 ms MUSE P [place] 29 degrees MUSE R [place] -6 degrees MUSE T Wave [place] 21 degrees MUSE 08/16/2023 9:43 PM CDT [...] Azar M.D. ECG ORDERABLES Performing Organization Address [facility]UST Co de Phone Number MUSE NA * [...] CDT Geneva Azar M.D. LAB BLOOD ADD-ON [address] [address], [facility] [address] [address] * (ABNORMAL) Basic Metabolic Panel (08/16/2023 9:40 PM CDT) [facility] Potassium, S 3.9 3.6 - 5.2 mmol/L [...] CDT Geneva Azar M.D. LAB BLOOD ADD-ON [facility] [address] [place] [address], [facility] DTL [facility] [address] [place] [address] * Transfuse Red Blood Cells : (08/16/2023 12:04 PM CDT) Corin Ring M.D. BLOOD TRANSFUSION OR DERABLES * Transfuse Red Blood Cells : , 1 Units (08/16/2023 12:04 PM CDT) Corin Ring M.D. BLOOD TRANSFUSION OR DERABLES * (ABNORMAL) Basic Metabolic Panel (08/16/2023 3:10 AM CDT) [facility] Potassium, S 4.2 3.6 - 5.2 mmol/L [...] CDT Paula Hernandez M.D. LAB BLOOD ADD-ON [facility] [address] [place] [address], [facility] [address] [place] [address] * (ABNORMAL) CBC without Differential (08/16/2023 3:10 [...] Hernandez M.D. LAB BLOOD ADD-ON [facility] [address] [place] [address], [facility] DTL [facility] [address] [place] [address] * (ABNORMAL) CBC with Differential, Blood (08/15/2023 3:58 PM CDT) [facility] Hemoglobin 9.0(L) 13.2 - 16.6 g/dL 08/15/2023 [...] LAB BLOOD ADD-ON [facility] [address] [place] [address], [facility] DTL [facility] [address] [place] [address] DHPM [facility] [address] [place] [address] * DX Abdomen 1 View (08/15/2023 1:19 [...] CDT 08/15/2023 12:03 PM CDT Rae Gonzalez [employer], [employer] CLEANER, DNAP LAB BLOO D NON ADD-ON [facility] [address] [place] [address], [facility] 200 [place] [address] * Lactate, B - Intra-op (08/15/2023 11:56 AM CDT) Lactate, B 1.1 0.5 - 2.2 mmol/L 08/15/2023 12:06 PM CDT STMA Blood (Blood, Venous) 08/15/2023 11:56 AM CDT 08/15/2023 12:03 PM CDT Hayde Song M.D. LAB BLOOD NON ADD-O N [facility] [address] [place] [address], [facility] [address] [place] [address] * (ABNORMAL) Glucose, Whole Blood (08/15/2023 11:56 AM CDT) Pathologist [facility] Glucose 144(H) 70 - 140 mg/dL 08/15/2023 12:06 PM CDT [facility] Blood (Blood, Arterial Line) 08/15/2023 11:56 AM CDT 08/15/2023 12:03 PM CDT Hayde Song M.D. LAB BLOOD ADD-ON [facility] [address] [place] [address], [facility] [address] [place] [address] * Potassium, Blood (08/15/2023 11:56 AM CDT) Potassium, B 4.3 3.6 - 5.2 mmol/L 08/15/2023 12:07 PM CDT [facility] Blood (Blood, Arterial Line) 08/15/2023 11:56 AM CDT 08/15/2023 12:03 PM CDT Hayde Song M.D. LAB BLOOD NON ADD-O N [facility] [address] [place], [place] [address] [place] [address] [address] [place] [address] * Sodium, B (08/15/2023 11:56 AM CDT) Sodium, B 135 135 - 145 mmol/L 08/15/2023 12:06 PM CDT [facility] Blood (Blood, Arterial Line) 08/15/2023 11:56 AM CDT 08/15/2023 12:03 PM CDT Hayde Song M.D. LAB BLOOD NON ADD-O N Performing Organization Address City/[facility]/ZIP Co de Phone Number [facility] [address] [place], [place] [phone] [place] [address] 200 [place] [address] * (ABNORMAL) Calcium, Ionized (08/15/2023 11:56 AM CDT) Calcium, Ionized, B 4.53(L) 4.65 - 5.30 mg/dL 08/15/2023 12:07 PM CDT [facility] Blood (Blood, Arterial Line) 08/15/2023 11:56 AM CDT 08/15/2023 12:03 PM CDT Hayde Song M.D. LAB BLOOD NON ADD-O N [facility] [address] [place], [place] [address] [place] [address] 200 [place] [address] * (ABNORMAL) Blood Gas with Coox, Arterial [...] NON ADD-O N [facility] [address] [place] [address], [facility] [address] [place] [address] * FL Fluoro Less Than 1 Hour [...] CDT 08/15/2023 10:28 AM CDT Rae Gonzalez [employer], SEWER CLEANER, DNAP LAB BLOO D NON ADD-ON [facility] [address] [place] [address], [facility] [address] [place] [address] * Lactate, B - Intra-op (08/15/2023 10:28 AM CDT) Lactate, B 1.1 0.5 - 2.2 mmol/L 08/15/2023 10:30 AM CDT STMA Blood (Blood, Venous) 08/15/2023 10:28 AM CDT 08/15/2023 10:28 AM CDT Hayde Song M.D. LAB BLOOD NON ADD-O N Performing Organization Address City/[facility]/ZIP Co de Phone Number [facility] [address] [place] [address], [facility] [address] [place] [address] * Glucose, Whole Blood (08/15/2023 10:28 AM CDT) Glucose 134 70 - 140 mg/dL 08/15/2023 10:30 AM CDT STMA Blood (Blood, Arterial Line) 08/15/2023 10:28 AM CDT 08/15/2023 10:28 AM CDT Hayde Song M.D. LAB BLOOD ADD-ON [facility] [address] [place] [address] * Potassium, Blood (08/15/2023 10:28 AM CDT) Potassium, B 4.1 3.6 - 5.2 mmol/L 08/15/2023 10:31 AM CDT STMA Blood (Blood, Arterial Line) 08/15/2023 10:28 AM CDT 08/15/2023 10:28 AM CDT Hayde Song M.D. LAB BLOOD NON ADD-O N [facility] [address] [place] [address] * Sodium, B (08/15/2023 10:28 AM CDT) Sodium, B 135 135 - 145 mmol/L 08/15/2023 10:30 AM CDT STMA Blood (Blood, Arterial Line) 08/15/2023 10:28 AM CDT 08/15/2023 10:28 AM CDT Hayde Song M.D. LAB BLOOD NON ADD-O N [facility] [address] [place] [address] * (ABNORMAL) Calcium, Ionized (08/15/2023 10:28 AM CDT) Calcium, Ionized, B 4.25(L) 4.65 - 5.30 mg/dL 08/15/2023 10:31 AM CDT STMA Blood (Blood, Arterial Line) 08/15/2023 10:28 AM CDT 08/15/2023 10:28 AM CDT Hayde Song M.D. LAB BLOOD NON ADD-O N [facility] [address] [place], [place] [address] [place] [address] [address] [place] [address] * (ABNORMAL) Blood Gas with Coox, Arterial (08/15/2023 10:28 AM CDT) [facility] Signature pO2 171(H) 83 - 108 [...] NON ADD-O N [facility] [address] [place] [address], [facility] [address] [place] [address] * Bacteria / Yomaira Culture, Blood #2 [...] Carlos Alberto Henson M.D. LAB MICROBIOLOGY - [facility] ORDERABLES [facility] [address] [place] [address], [facility] [address] [place] [address] * (ABNORMAL) Basic Metabolic Panel (08/15/2023 3:31 [...] LAB BLOOD ADD-ON Performing Organization Address [facility] Co de Phone Number [facility] [address] [place] [address] * Bacteria / Yomaira Culture, Blood #1 (08/15/2023 3:31 AM CDT) Pathologist [facility] Bacteria/Leyla da Culture, Blood No growth after 5 days of incubation. 08/20/2023 6:02 AM CDT DTL Blood (Blood, Peripheral Draw) 08/15/2023 3:31 AM CDT 08/15/2023 5:59 AM CDT Comment:Specimen Source Site : Blood Carlos Alberto Henson M.D. LAB MICROBIOLOGY - G ENERAL ORDERABLES Performing Organization Address [facility] de Phone Number [facility] [address] [place] [address] * (ABNORMAL) CBC with Differential, Blood (08/15/2023 [...] BLOOD ADD-ON [facility] [address] [place] [address], [facility] DTL [facility] [address] [place] [address] [facility] [address] [place] [address] * (ABNORMAL) CBC with Differential, Blood (08/14/2023 8:08 PM CDT) [facility] Signature Hemoglobin 9.8(L) 13.2 - 16.6 [...] BLOOD ADD-ON [facility] [address] [place] [address], [facility] STMA [facility] [address] [place] [address] [facility] [address] [place] [address] * Transfuse Red Blood Cells : , 2 Units (08/14/2023 6:55 PM CDT) Carlos Alberto [facility] BLOOD TRANSFUSION OR DERABLES * Transfuse Red Blood Cells : (08/14/2023 6:55 PM CDT) [facility] BLOOD TRANSFUSION OR DERABLES * Transfuse Red Blood Cells : (08/14/2023 3:40 PM CDT) [facility] BLOOD TRANSFUSION OR DERABLES * (ABNORMAL) CBC with Differential, Blood (08/14/2023 3:18 AM CDT) [facility] Hemoglobin 7.6(L) 13.2 - 16.6 g/dL 08/14/2023 [...] LAB BLOOD ADD-ON [facility] [address] [place] [address], [facility] STMA [facility] [address] [place] [address] [facility] [address] [place] [address] * (ABNORMAL) Basic Metabolic Panel (08/14/2023 3:18 [...] 3:18 AM CDT 08/14/2023 4:32 AM CDT Narrative Authorizing Provider Result Abdifatah Henson M.D. LAB BLOOD ADD-ON Performing Organization Address City/[facility]/ZIP Co de Phone Number [facility] [address] [place] [address], [facility] [address] [place] [address] * Type and Screen (with Reflex Antibody ID) (08/13/2023 7:35 PM CDT) Pathologist [facility] ABORh O Pos Not applicable 08/13/2023 7:58 PM CDT STRM Antibody Screen Negative Negative 08/13/2023 8:13 PM CDT STRM Type & Screen Expiration 08/16/2023 23:59 08/13/2023 7:58 PM CDT STRM Testing Location [place] DEFAULT 08/13/2023 7:39 PM CDT STRM Blood (Blood, Venous) 08/13/2023 7:35 PM CDT 08/13/2023 7:39 PM CDT Narrative Authorizing Provider Result Abdifatah Henson M.D. LAB BLOOD BANK TEST ORDERABLES Performing Organization Address [facility] Co de Phone Number [facility] [address] [place] [address], [facility] [address] [place] [address] * (ABNORMAL) Bacteria / Yomaira Culture, Blood #1 (08/13/2023 7:35 PM CDT) Pathologist [facility] Bacteria/Cand jessica Culture, Blood ESCHERICHIA COLI Growth after 11 Hours (A) 08/16/2023 11:17 AM CDT DTL Comment: 3 of 3 Bottles, Susceptibilities performed on another specimen [id number] Blood (Blood, Peripheral Draw) 08/13/2023 7:35 PM CDT 08/13/2023 8:15 PM CDT Comment:Specimen Source Site : Blood Carlos Alberto Henson M.D. LAB MICROBIOLOGY - G ENERAL ORDERABLES Performing Organization Address City/[facility] Co de Phone Number [facility] [address] [place] [address], [facility] DTL [facility] [address] [place] [address] * ECG 12 Lead (08/13/2023 7:02 PM CDT) Ventricular Rate ECG/Min 128 BPM MUSE NJ Interval 138 ms MUSE QRSD Interval 64 ms MUSE QT Interval 304 ms MUSE QTC Interval 443 ms MUSE P [place] 45 degrees MUSE R [place] 34 degrees MUSE T Wave [place] 46 degrees MUSE 08/13/2023 7:02 PM CDT 08/13/2023 7:13 PM CDT Impressions MUSE - 08/13/2023 7:13 PM CDT Sinus tachycardia Otherwise normal ECG No previous ECGs available Reviewed by BETTY Walton Narrative Procedure Note Lucas Lee M.D. - 08/13/2023 IMPRESSION: Sinus tachycardia Otherwise normal ECG No previous ECGs available Reviewed by BETTY Walton Toby Wright ECG ORDERABLES Performing Organization Address [facility] Co de Phone Number MUSE NA * [...] Site : Blood Narrative [facility] - 08/16/2023 11:17 AM CDT Received Bactec [...] Carlos Alberto Henson M.D. LAB MICROBIOLOGY - [facility] ORDERABLES [facility] [address] [place] [address], [place] DTL [facility] [address] [place] [address] * Magnesium (08/13/2023 5:27 PM CDT) [facility] Signature Magnesium, S 1.9 1.7 - 2.3 mg/dL 08/13/2023 6:12 PM CDT DTL Blood (Blood, Venous) 08/13/2023 5:27 PM CDT 08/13/2023 5:58 PM CDT Carlos Alberto Henson M.D. LAB BLOOD ADD-ON Performing Organization Address City/[facility]/ZIP Co de Phone Number [facility] [address] [place], [place] [address] [address] [place] [address] * (ABNORMAL) Hepatic Function Panel (08/13/2023 5:27 [...] LAB BLOOD ADD-ON Performing Organization Address City/[facility]/ZIP Co de Phone Number [facility] [address] [place] [address], [facility] [address] [place] [address] * (ABNORMAL) Basic Metabolic Panel (08/13/2023 5:27 PM CDT) Pathologist [facility] Potassium, P 5.5(H) 3.6 - 5.2 mmol/L [...] M.D. LAB BLOOD ADD-ON [facility] [address] [place] [address], [facility] STMA [facility] [address] [place] [address] * Prothrombin Time (PT) (08/13/2023 5:27 PM [...] BLOOD ADD-ON [facility] [address] [place] [address], [facility] [address] [place] [address] * (ABNORMAL) CBC with Differential, Blood (08/13/2023 5:27 PM CDT) Pathologist [facility] Hemoglobin 10.0(L) 13.2 - 16.6 g/dL [...] LAB BLOOD ADD-ON Performing Organization Address City/[facility]/ZIP Co de Phone Number [facility] [address] [place] [address], [facility] STMA [facility] [address] [place] [address] DHPM [facility] [address] [place] [address] * (ABNORMAL) Dipstick, Urine (08/13/2023 5:07 PM [...] M.D. LAB URINE ORDERABLES [facility] [address] [place] [address], [facility] [address] [place] [address] * Osmolality, Urine (08/13/2023 5:07 PM CDT) Pathologist [facility] Osmolality, U 351 150 - 1150 mOsm/kg 08/13/2023 7:46 PM CDT DTL Urine 08/13/2023 5:07 PM CDT 08/13/2023 5:45 PM CDT Carlos Alberto Henson M.D. LAB URINE ORDERABLES [facility] [address] [place] [address] * (ABNORMAL) Microscopic Manual (08/13/2023 5:07 PM [...] M.D. LAB URINE ORDERABLES [facility] [address] [place] [address] * pH, Random, Urine (08/13/2023 5:07 PM CDT) Pathologist [facility] pH, Random, U 7.0 4.5 - 8.0 08/13/2023 7:46 PM CDT DTL Urine 08/13/2023 5:07 PM CDT 08/13/2023 5:45 PM CDT Carlos Alberto Henson M.D. LAB URINE ORDERABLES [facility] [address] [place] [address], [facility] [address] [place] [address] * (ABNORMAL) Bacterial Culture, Aerobic + Susceptibility, [...] Carlos Alberto Henson M.D. LAB MICROBIOLOGY - [facility] ORDERABLES [address] [address] * (ABNORMAL) Urinalysis, with Microscopic: Urine, Midstream [...] CDT DTL Predicted 24 [place] [address](H) <229 mg/24 h 08/13/2023 8:50 PM CDT DTL Predicted Range [id number] mg/24 h 08/13/2023 8:50 PM CDT DTL Comment Micro done on <2.5 mL 08/13/2023 7:55 PM CDT DTL Urine (Urine, Midstream) 08/13/2023 5:07 PM CDT 08/13/2023 5:44 PM CDT Carlos Alberto Henson M.D. LAB URINE ORDERABLES [facility] [address] [place] [address], [place] DTL [facility] [address] [place] [address] * Interpretation of Outside CT Abdomen and [...] or score 7-10 of 10, Starting on 5/4/24 at 1725 Given 08/17/2023 4:57 AM CDT [...] may use home supply. 08/17/23: Id'ed by [facility] [place] [id number], filled 07/22/23. HAZARDOUS - Handle with care. Swallow whole. Do NOT crush, chew or open capsule. Given 08/26/2023 9:12 AM CDT 120 mg Given 08/25/2023 9:08 AM CDT 120 mg Given 08/24/2023 9:12 AM CDT 120 mg fat emulsion [id number] & fish oil infusion 50 g (SMOFlipid) [...] Lactated Ringer's 1.5 mL/kg/hr ? 75 kg [place] weight (112.5 mL/hr, rounded to 113 mL/hr), intravenous, Continuous, Starting on Tue08/22/23 at 1030, Conditional Phase Pre-Gastrografin Administration. (Rate = 1.5 mL/kg/hr ideal body weight) Lactated Ringer's 0.75 mL/kg/hr ? 75 kg [place] weight (56.25 mL/hr, rounded to 56.3 mL/hr), [...] - Reason: Patient/family refused)0615 (Given - Provider: Birttni Howe R.N.)1242 (Given - Provider: Tayler Forrest R.N.)1831 (Given - Provider: Mary Rosado RJonahNJonah) 0019 (Not Given - Provider: Fatuma See R.N. - Reason: Patient/family refused)0639 (Given - Provider: Fatuma See R.N.)1136 (Given - Provider: Tayler Forrest R.N.)1750 (Not Given - Provider: Paola Salazar RNarendra - Reason: Patient/family refused)2349 (Not [...] Lupe Valdez R.N.)1357 (Not Given - Provider: Lpue Valdez R.N. - Reason: Contraindicated) cefdinir suspension [...] RNarendra) 0640 (Given - Provider: Fatuma See RNarendra)1750 (Given - Provider: Mayur MartinezNJonah) 0627 (Given - Provider: Edith Simental R.N.)1600 [...] 0852 (Not Given - Provider: Tayler Forrest RNarendra - Reason: Patient/family refused)2131 (Given - Provider: Paola Salazar R.N.) 0915 (Given - Provider: Lupe Valdez R.N.) enzalutamide capsule 120 mg (XTANDI) PATIENT'S OWN MED 120 mg, oral, Daily, First dose (after last modification) on Tue08/17/23 at 1230, Patient may use home supply. 08/17/23: Id'ed by [facility] [id number], filled 07/22/23. HAZARDOUS - Handle with care. Swallow whole. Do NOT crush, chew or open capsule. 09 (Given - Provider: Tayler Forrest R.N. - Comment: Pat Murray, -2nd RN) 09 (Given - Provider: Tayler Forrest R.N. - Comment: Pt 's own med from home) 911 (Given - Provider: Lupe Valdez R.N.) fat emulsion [id number] & fish oil infusion 50 g (SMOFlipid) [...] R.N.)2131 (Given - Provider: Paola Salazar R.N.) 15 (Given - Provider: Lupe [...] Lactated Ringer's 1.5 mL/kg/hr ? 75 kg [place] weight (112.5 mL/hr, rounded to 113 mL/hr), intravenous, Continuous, Starting on Tue08/22/23 at 1030, Conditional Phase Pre-Gastrografin Administration. (Rate = 1.5 mL/kg/hr ideal body weight) Lactated Ringer's 0.75 mL/kg/hr ? 75 kg [place] weight (56.25 mL/hr, rounded to 56.3 mL/hr), [...] 1547 documented in this encounter Care Teams Towel Sorter Relationship Specialty Start Date End Date Elsewhere, Pcp PCP - General Internal Medicine 08/13/23 documented as of this encounter
--- OUTSIDE RECORDS SUMMARY | 2023-10-28 12:37 | XMS_ITS | Encounter Summary ---
Author Organization [facility] Address [address] [place] [address] Care Team Providers Care Industrial Hygenist Name Role Phone Elsewhere, Pcp Primary Care Provider Unavailabl e Encounter Details Date Type Department Care Team (Late st Contact Info) Description 08/15/2023 8:30 AM CDT Anesthesia Event RST ROMB MAIN OR [address] [place] [phone] Hayde Song M.D. [address] [place] [address] Anesthesia Record Procedure Summary Procedure Name Responsible [...] R.N. 08/15/23 0909 by Rae Gonzalez APRN, ACQUISITION CONSULTANT, DNAP Peripheral IV Placement Date: 08/02; Existing [...] Removal Time: 1253 08/15/23 0840 by Rae Gnozalez APRN, CRNA, DNAJay 08/15/23 1253 by Rae [...] 1430 08/15/23 1234 by Rae Gonzalez APRN, AGVIN, DNAP 08/17/23 1430 by Jr Samuel RNarendra documented in this encounter Social History Tobacco Use Types Packs/Day Years Used Date Smoking Tobacco: Never Smokeless Tobacco: Never [facility] Utilities Answer Date Recorded In the past 12 months has e [employer], gas, oil, or water [employer] threatened to shut off services in [...] [facility] 08/13/2023 Sex and Gender Information Value Date Recorded Sex Assigned at Not on file Gender Identity Not on file Sexual Orientation Not on file documented as of this encounter OR Notes * Anesthesia Postprocedure Evaluation - Nereida Liang M.D. 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 Location: [place] [address] / [facility] in [place], [place] Providers: Boubacar Brock M.D. Pertinent components [...] patient / legal guardian, or through an conductor and engineer; patient evaluated and approved for anesthesia / [...] CDT Office Visit Department of Urology in [place], [place] [address] [place] [address] Burke Strauss M.D. [address] [place] [phone] Discharge Disposition: Home or Self Care documented as of this encounter Procedures Procedure Name Priority Date/Time Associated Diagnosis Comments MC ANE INVASIVE CATH WITH ULTRASOUND Routine 08/15/2023 9:51 AM CDT LDA ANE ARTERIAL LINE INSERTION Routine 08/15/2023 9:51 AM CDT TN US GUIDE VASC ACCESS Routine 08/15/2023 9:51 AM CDT TN ARTL CATH/CNULA MONITOR PERC Routine 08/15/2023 9:51 AM CDT LDA ANE ENDOTRACHEAL AIRWAY Routine 08/15/2023 8:40 AM CDT documented in this encounter Results * TN ARTL CATH/CNULA MONITOR PERC, TN US GUIDE VASC ACCESS, LDA ANE ARTERIAL LINE INSERTION, MC ANE INVASIVE CATH WITH ULTRASOUND (08/15/2023 9:51 AM CDT) Narrative Rae Gonzalez APRN, GAVIN, DNAP - 08/15/2023 9:51 AM CDT Rae Gonzalez APRN ACQUISITION CONSULTANT, DNAP ? 08/15/2023 ??9:52 AM Invasive [...] ETT location: oral VL device: glide scope Alderson scope blade size: 4 Tube size: 7.5 [...] mg documented in this encounter Care Teams Industrial Hygenist Relationship Specialty Start Date End Date Elsewhere, Pcp PCP - General Internal Medicine 08/13/23 documented as of this encounter
--- OUTSIDE RECORDS SUMMARY | 2023-10-28 12:37 | XMS_ITS | Encounter Summary ---
Author Organization [facility] Address [address] [place] [address] Care Team Providers Care Admissions Representative Name Role Phone Elsewhere, Pcp Primary [...] has e electric, gas, oil, or water [employer] threatened to shut off services in your [...] [facility] 08/13/2023 Sex and Gender Information Value Date Recorded Sex Assigned at Not on file Gender Identity Not on file Sexual Orientation Not on file documented as of this encounter Plan of Treatment Upcoming Encounters Date Type Department Care Team (Late st Contact Info) Description 11/09/2023 11:00 AM CDT Office Visit Department of Urology in [place], [place] [address] [place] [address] Burke Strauss M.D. [address] [place] [phone] Discharge Disposition: Home or Self Care documented [...] on filedocumented in this encounter Care Teams Admissions Representative Relationship Specialty Start Date End Date Elsewhere, Pcp PCP - General Internal Medicine 08/13/23 documented as of this encounter
--- OUTSIDE RECORDS SUMMARY | 2023-10-28 12:38 | XMS_ITS | Encounter Summary ---
Author Organization [facility] Address [address] [place] [address] Care Team Providers Care Fiscal Accountant Name Role Phone Elsewhere, Pcp Primary Care Provider Unavailabl e Encounter Details Date Type Department Care Team (Late st Contact Info) Description 08/15/2023 7:55 AM CDT - 08/15/2023 11:23 AM CDT Surgery RST ROMB MAIN OR [address] [place] [address] Boubacar Brock M.D. [address] [place] [phone] Palliative EXPLORATORY LAPAROTOMY, CYSTOTOMY CLOSURE, RIGHT URETERAL STENT EXCHANGE Social History Tobacco Use Types Packs/Day Years Used Date Smoking Tobacco: Never Smokeless Tobacco: Never [facility] Utilities Answer Date Recorded In the [...] your living situation today? I have a [facility] place to live 08/13/2023 Sex and [...] OVERVIEW Hospital: [facility] Discharge Provider: Boubacar Brock M.D. Primary [...] Lexiaochuan, M.D.Premo, Hayley, M.D.Botkin, Hannah, M.D. [facility] ROMB OR DISCHARGE DISPOSITION Home or Self Care [1] ACTIVE ISSUES REQUIRING FOLLOW UP OUTPATIENT FOLLOW UP Scheduled Appointments 08/26/2023 1:00 PM [facility] Radiology For appointment details refer to your [...] he felt completely obstructed and presented to [facility]. [facility] Course Attempted Tabares insertion but bladder irrigation was unsuccessful on multiple attempts. Hung 1U pRBC's. Given some volume and transferred to [facility] ICU ICU Course Urology consulted and [...] CONSULT TO NUTRITION SUPPORT IP CONSULT TO POSTAL TRANSPORTATION CLERK WOUND CARE CONDITION AT DISCHARGE stable Discharge [...] he felt completely obstructed and presented to [facility]. [facility] Course Attempted Tabares insertion but bladder irrigation was unsuccessful on multiple attempts. Hung 1U pRBC's. Given some volume and transferred to [facility] ICU ICU Course Urology consulted and [...] CDT You were discharged from the [facility] Urology Surgery - Chief A - Blue Service. Please identify this service name if you call with questions after hospitalization. * Attachments The following attachments cannot be sent through Care Everywhere. * Bacitracin (On the skin) (Serbian) * Cefdinir (By mouth) (Serbian) * Trospium (By mouth) (Serbian) documented in this encounter Medications at Time [...] another provider. * Chary Diamond M.A., O.T., [facility] - 08/26/2023 10:21 AM CDT Occupational Therapy [facility] Inpatient Treatment SUBJECTIVE Patient's Name: Kalen Vega Referring/Attending Provider: Boubacar Brock M.D. Reason for Referral: Occupational Therapy Evaluation and Treatment History of Present Illness: Kalen Vega is a 83 y.o. male who was admitted to [facility] in [place] on 08/13/2023 for Hematuria [R31.9]. Precautions Other Precautions: Abdominal, fall precautions, monitor tachycardia and hypertension Pain Assessment: Pain not reported during session. Subjective Comments: Agreeable to therapy session. Team Communication: The patient's status was discussed and coordination of care occurred with RN, Family/Caregiver, nurse tech Family/Caregiver Present: son and [id number] OBJECTIVE Vital Signs: Vitals not formally assessed during session. No concerns during chart review and the patient had nosigns or symptoms consistent with vital changes during therapy session. Outcome Measures: [facility] Inpatient Short Form: Putting on [...] or below 17 Clinicians answer the [facility] Inpatient Short Form based on [...] through pant leg first. - Adaptive Equipment: Rn Transitional Care TOILETING - Assist Level: Maximal Assist - [...] (Edge of bed) - Assist Level: Modified [place] - Equipment: bed rail - Therapist Delivery: assessed, instructed, assisted - Adaptive Equipment: leg claims analyst trialed ; however, patient able to move [...] extremity (stiff knee) first. Recommended adaptive equipment: Rn Transitional Care. Toileting - Patient instructed on accurate positioning [...] maximal exertion Handouts provided: Bathroom Safety Equipment [id number], Techniques to Help You Save Energy [id number] Patient was left in bedside chair with [...] Usama 6C -room 121 ASSESSMENT / PLAN BATH MIXERmanager transportation planning met with patient and son Kar to inform them of home health care acceptance for PT/OT. Patient's son Kar and [id number] will provide transportation at the time of discharge. PLAN Patient to discharge home with home health care. Home Medical Care - Admitted Since 08/13/2023 Service Provider Selected Services Address Phone Fax Patient Preferred [employer] [facility] [address] [facility] [phone] -- Reprographics Technician: Ghazal NURSING: - Complete documentation in the Discharge Navigator including Nursing Report Info and Facility/NextLevel of Care Info - Call report and arrange for the patient's first visit - Send After Visit Summary and required packet of dismissal information with patient, including advance directive. PRIMARY SERVICE: - Please provide a non-[facility] home health order for: physical therapy and [...] be provided by family--patient's son Kar and [id number]. 3. parasitology teacher recommended reaching out to family, friends, and neighbors for assistance. 4. parasitology teacher provided information regarding the dismissal process. Damaris [...] Reviewed with patient #1 Hematuria Please page [facility] ([phone]) or [facility] ([phone]) Nutrition Support Service pager with questions. * Emeterio Buchanan P.T., D.P.T., [facility] - 08/25/2023 9:35 AM CDT Physical Therapy Inpatient Treatment SUBJECTIVE Patient's Name: Kalen Vega Referring/Attending Provider: Boubacar Brock M.D. Reason for Referral: Physical Therapy Evaluate and Treat History of Present Illness: Kalen Vega is a 83 y.o. male who was admitted to [facility] in [place] on 08/13/2023 for Hematuria [R31.9] Precautions Other [...] session; within normal ranges. Outcome Measures: [facility] C[facility] Basic Mobility (V.2) Raw Score: 18 [facility] Basic Mobility (V.2) Standardized [...] 83 y.o. male who was admitted to [facility] in [place] on 08/13/2023 for Hematuria [R31.9]. Precautions Other Precautions: Abdominal, fall precautions, monitor tachycardia and hypertension Pain Assessment: Pain not reported during session. Subjective Comments: Agreeable to therapy session. Team Communication: The patient's status was discussed and coordination of care occurred with RN, PT OBJECTIVE Vital Signs: Vitals monitored throughout session; within normal ranges. Outcome Measures: [facility] Inpatient Short Form: Putting on [...] or below 17 Clinicians answer the [facility] Inpatient Short Form based on [...] including figure four technique. Recommended adaptive equipment: Rn Transitional Care and Sock Aid. Toileting - Patient instructed [...] and modification tools as needed including leg claims analyst and/or bed adjustments. Bathroom DME: - Educated [...] in place draining clear yellow urine I/O ([id number]): Fifty-five cc serosanguineous from the drain 1 [...] locallyfor CBI. He was subsequently transferred to [facility] 08/12 for difficulty irrigating his catheter [...] have him follow up with his local slicing machine feeder Comorbidities: --history of DVT status post IVC [...] discussed with Dr. Venegas, chief urology resident shift production associate. Pager during business hours: [phone] Pager after hours: [phone] * Emeterio Buchanan P.T., D.P.T., [facility] - 08/24/2023 10:46 AM CDT Physical Therapy Inpatient Treatment SUBJECTIVE Patient's Name: Kalen Vega Referring/Attending Provider: Boubacar Brock M.D. Reason for Referral: Physical Therapy Evaluate and Treat History of Present Illness: Kalen Vega is a 83 y.o. male who was admitted to [facility] in [place] on 08/13/2023 for Hematuria [R31.9] Precautions Other [...] and O2flow: Room air Outcome Measures: [facility] [...] or below 17 Clinicians answer the [facility] Inpatient Short Form based on [...] baseline. PT Goal #2: Patient will perform erx-tl-dqkqj transfer with modified independence and least restrictive [...] Total Kcal/day: 1370 based on 84 % Garcia-Aiken Non-standard additives: K 80 mEq Phos 30 [...] magnesium, phosphorus tomorrow. #1 Hematuria Please page [facility] ([phone]) or [facility] ([phone]) Nutrition Support Service pager with questions. * [...] catheter in place draining light smith I/O ([id number]): Forty-two cc serosanguineous from the drain 2.2 [...] locallyfor CBI. He was subsequently transferred to [facility] 08/12 for difficulty irrigating his catheter [...] 2.5 mg BID eliquis initiated 08/15 per [facility] med curbside recs --transition from eliquis ppx [...] have him follow up with his local slicing machine feeder Comorbidities: --history of DVT status post IVC [...] discussed with Dr. Venegas, chief urology resident shift production associate. Pager during business hours: [phone] Pager after hours: [phone] * Deanne Mike L.G.S.W., M.S.W. - 08/23/2023 11:25 AM CDT SUBJECTIVE Social Work spoke with [facility]. They cannot provide detention at this time. They can provide OT/PT [...] discharge date of 08/24/23-08/26/23. Referrals sent: [facility] (out of service area) [facility] ASSESSMENT / PLAN ASSESSMENT Patient has robust family support including a son living with him. PLAN Patient desires home health care through [facility]. Social Work will continue to follow to provide support. Social Work will continue to assist with discharge needs. Shorty Sun, M.S.W. 08/23/23 * Jazmine Benítez, RRitesh., C.W.C.N. - 08/23/2023 11:10 AM CDT [facility] Wound RN consulted to assess Kalen [...] stent and hematuria who is transferred from [facility] ED with 3 days of hematuria and [...] None Unable to Measure Y *Wound Bed Closed;[place];Red Tissue Exposed None Odor None *Exudate Amount [...] 30 minutes > 30 minutes Ongoing management Nursing;Wound/creping machine operator Partial head to toe skin [...] nursing. They agree to the plan. The [facility] RN will sign-off. Please place a wound care consult for any new concerns. Electronically signed by: Jazmine Benítez R.N., [facility] 08/23/23 11:10 AM CDT * Emeterio Buchanan P.T., D.P.T., [facility] - 08/23/2023 11:02 AM CDT Physical Therapy Inpatient Treatment SUBJECTIVE Patient's Name: Kalen Vega Referring/Attending Provider: Boubacar Brock M.D. Reason for Referral: Physical Therapy Evaluate and Treat History of Present Illness: Kalen Vega is a 83 y.o. male who was admitted to [facility] in [place] on 08/13/2023 for Hematuria [R31.9] Precautions Other [...] Basic Mobility (V.2) Raw Score: 17 [facility] Basic Mobility (V.2) Standardized Score: 39.67 Interpretation: Based on scoring guidelines using the raw score value: Those going to home had an average score at or above 18 Those going to facility had an average score at or below 17 Clinicians answer the [facility] Inpatient Short Form based on [...] baseline. PT Goal #2: Patient will perform gyv-lj-renwe transfer with modified independence and least restrictive [...] D.P.T., [facility] * Demarco Salazar Pharm.D., R.Ph., [facility] - 08/23/2023 10:19 AM CDT Pharmacist [...] Total Kcal/day: 1370 based on 84 % Garcia-Aiken Non-standard additives: MAX chloride Thiamine 100 mg [...] magnesium, phosphorus tomorrow. #1 Hematuria Please page [facility] ([phone]) or [facility] ([phone]) Nutrition Support Service pager with questions. * Ivy Hernandez O.T. - 08/23/2023 8:30 AM CDT Occupational Therapy Acute Hospital Inpatient Treatment SUBJECTIVE Patient's Name: Kalen Vega Referring/Attending Provider: Boubacar Brock M.D. Reason for Referral: Occupational Therapy Evaluation and Treatment History of Present Illness: Kalen Vega is a 83 y.o. male who was admitted to [facility] in [place] on 08/13/2023 for Hematuria [R31.9]. Precautions Other Precautions: Abdominal, fall precautions, monitor tachycardia and hypertension Pain Assessment: Pain not reported during session. Subjective Comments: Agreeable to therapy session. Team Communication: The patient's status was discussed and coordination of care occurred with RN, PT OBJECTIVE Vital Signs: Vitals monitored throughout session; within normal ranges. Outcome Measures: [facility] Inpatient Short Form: Putting on [...] or below 17 Clinicians answer the [facility] Inpatient Short Form based on [...] catheter in place draining clear yellow I/O ([id number]): 73 cc serosanguineous from the drain Seven [...] locallyfor I. 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 [facility] Summary: Diet: NPO, TPN Activity: Ad [...] discussed with Dr. Venegas, chief urology resident shift production associate. Pager during business hours: [phone] Pager after hours: [phone] * Chary Diamond M.A., O.T., B[facility] - [...] [facility] Social Work sent referral. OBJECTIVE Patient is anticipated to remain at [facility] for 3-5 days. Referrals sent: [facility] ASSESSMENT / PLAN ASSESSMENT Patient has robust family support including a son living with him. PLAN Patient desires home health care through [facility]. Social Work will continue to [...] 83 y.o. male who was admitted to [facility] in [place] on 08/13/2023 for Hematuria [R31.9] Precautions Other [...] 3-5 steps with a railing?: A Lot [facility] Basic Mobility (V.2) [...] baseline. PT Goal #2: Patient will perform ddr-lq-ahdea transfer with modified independence and least restrictive [...] Total Kcal/day: 1370 based on 84 % Garcia-Aiken Non-standard additives: MAX chloride Thiamine 100 mg [...] place draining light smith colored urine I/O ([id number]): CBI on slow drip 75 cc serosanguineous [...] locallyfor CBI. He was subsequently transferred to [facility] 08/12 for difficulty irrigating his catheter [...] 2.5 mg BID eliquis initiated 08/15 per [facility] med curbside recs --transition from eliquis ppx [...] have him follow up with his local slicing machine feeder Comorbidities: --history of DVT status post IVC [...] discussed with Dr. Venegas, chief urology resident shift production associate. Pager during business hours: [phone] Pager after hours: [phone] * Qamar Jim, Pharm.D., R.Ph. - 08/21/2023 [...] place draining clear smith colored urine I/O ([id number]): 1800 cc urine output 75 cc serosanguineous [...] locallyfor CBI. He was subsequently transferred to [facility] 08/12 for difficulty irrigating his catheter [...] have him follow up with his local slicing machine feeder Comorbidities: --history of DVT status post IVC [...] discussed with Dr. Venegas, chief urology resident shift production associate. Pager during business hours: [phone] Pager after hours: [phone] * Lizette Harvey M.D. - 08/20/2023 8:08 [...] of scabbing at most inferior aspect. : Tabarse catheter in place draining clear thin merlot colored urine I/O ([id number]): 240 cc p.o. intake 760 cc urine [...] locallyfor CBI. He was subsequently transferred to [facility] 08/12 for difficulty irrigating his catheter [...] 2.5 mg BID eliquis initiated 08/15 per [facility] med curbside recs --transition from eliquis ppx [...] have him follow up with his local slicing machine feeder Comorbidities: --history of DVT status post IVC [...] questions or concerns. Pager during business hours: [phone] Pager after hours: [phone] * Qamar Jim, PharmJonahD., R.Ph. - 08/20/2023 [...] Jim, PharmPerla., R.Ph. * Lisa Seaman, O.T., [facility] - 08/19/2023 2:26 PM CDT Occupational Therapy [facility] Inpatient Treatment SUBJECTIVE Patient's Name: Kalen Vega Referring/Attending Provider: Boubacar Brock M.D. Reason for Referral: Occupational Therapy Evaluation and Treatment History of Present Illness: Kalen Vega is a 83 y.o. male who was admitted to [facility] in [place] on 08/13/2023 for Hematuria [R31.9]. Precautions Other Precautions: Abdominal, fall precautions, monitor tachycardia and hypertension Pain Assessment: Pain not reported during session. Subjective Comments: Patient greeted in chair and agreeable to therapy session. Team Communication: The patient's status was discussed and coordination of care occurred with RN OBJECTIVE Vital Signs: Vitals monitored throughout session; within normal ranges. Outcome Measures: [facility] Inpatient Short Form: Putting on [...] or below 17 Clinicians answer the [facility] Inpatient Short Form based on [...] about patient's nutritional care please contact pager [phone] on weekdays or [phone] on weekends/holidays. NUTRITION ASSESSMENT: Mr. Vega is [...] care everywhere) ESTIMATED NEEDS: Total Calorie Needs: 6235-3635 calories/day Method to Estimate Energy Needs: kcal/kg [...] 83 y.o. male who was admitted to [facility] in [place] on 08/13/2023 for Hematuria [R31.9] Precautions Other [...] mmHg O2: 96% Room air Outcome Measures: [facility]: [facility] [...] or below 17 Clinicians answer the [facility] Inpatient Short Form based on [...] Ongoing PT Goal #2: Patient will perform mve-zb-aeuwj transfer with modified independence and least restrictive [...] in place draining clear pink urine I/O ([id number]): 370 p.o. intake 1 L urine output [...] locallyfor CBI. He was subsequently transferred to [facility] 08/12 for difficulty irrigating his catheter [...] 2.5 mg BID eliquis initiated 08/15 per [facility] med curbside recs --transition from eliquis ppx [...] have him follow up with his local slicing machine feeder Comorbidities: --history of DVT status post IVC [...] questions or concerns. Pager during business hours: [phone] Pager after hours: [phone] * Lisa Seaman, O.TJonah, [facility] - 08/18/2023 11:15 AM CDT Occupational Therapy [facility] Inpatient Treatment SUBJECTIVE Patient's Name: Kalen Vega Referring/Attending Provider: Boubacar Brock M.D. Reason for Referral: Occupational Therapy Evaluation and Treatment History of Present Illness: Kalen Vega is a 83 y.o. male who was admitted to [facility] in [place] on 08/13/2023 for Hematuria [R31.9]. Precautions Other [...] 168/97 - nurse notified Outcome Measures: [facility] Inpatient Short Form: Putting on [...] or below 17 Clinicians answer the [facility] Inpatient Short Form based on [...] doffing over it last. Recommended adaptive equipment: Rn Transitional Care and Sock Aid. Patient was left in bedside chair, with nursing/STEEL RULE INSPECTOR at end of session with call [...] 83 y.o. male who was admitted to [facility] in [place] on 08/13/2023 for Hematuria [R31.9] Precautions Other [...] vital signs with primary service. Outcome Measures: [facility] Inpatient Short Form: AM-[facility] Basic [...] or below 17 Clinicians answer the [facility] Inpatient Short Form based on [...] following coordination of care occurred with the die cutter apprentice/Caregiver Present: No Patient was left in bedside [...] Progressing PT Goal #2: Patient will perform zyi-ty-xjoif transfer with modified independence and least restrictive [...] in place draining clear pink urine I/O ([id number]): 1.2 L p.o. intake 1 L urine [...] locallyfor I. He was subsequently transferred to [facility] 08/12 for difficulty irrigating his catheter [...] 2.5 mg BID eliquis initiated 08/15 per [facility] med curbside recs --transition from eliquis ppx [...] diet later today follow up vascular medicine [facility] Summary: Diet: currently limited clears Activity: Ad kong DVT PPX: heparin drip GI PPX: Pantoprazole Bowel Regimen:N/A IVF: none Abx/Microbiology: Ceftriaxone Pain Control: Tylenol, oxycodone 08/18. Scheduled trospium Home Meds Resumed: Metoprolol, tamsulosin, rosuvastatin Held Home Meds: None Consults: None Paula Hernandez M.D. 08/18/2023 6:02 AM CDT Please page the Urology Chief Service with questions or concerns. Pager during business hours: [phone] Pager after hours: [phone] * Tayler Greenwood M.D., M.Ed. - 08/17/2023 [...] the patient follow up with his primary slicing machine feeder at discharge we will which we will [...] Ringer's Lactated Ringer's * Lisa Seaman O.T., [facility] - 08/17/2023 10:47 AM CDT Occupational Therapy [facility] Inpatient Treatment SUBJECTIVE Patient's Name: Kalen Vega Referring/Attending Provider: Boubacar Brock M.D. Reason for Referral: Occupational Therapy Evaluation and Treatment History of Present Illness: Kalen Vega is a 83 y.o. male who was admitted to [facility] in [place] on 08/13/2023 for Hematuria [R31.9]. Precautions Other [...] at or below 17 Clinicians answer the [facility] Inpatient Short Form based [...] in place draining clear pink urine I/O ([id number]): NG tube 200 cc Two hundred sixty-five [...] locallyfor CBI. He was subsequently transferred to [facility] 08/12 for difficulty irrigating his catheter [...] held since 08/11) -discussed [facility] regarding ongoing anticoagulation/antiplatelet. Theyfelt [...] questions or concerns. Pager during business hours: [phone] Pager after hours: [phone] * Audi De Luna P.T., D.P.T. - [...] in place draining clear pink urine I/O ([id number]): NG tube 200 cc Two hundred sixty-five [...] locallyfor CBI. He was subsequently transferred to [facility] 08/12 for difficulty irrigating his catheter [...] questions or concerns. Pager during business hours: [phone] Pager after hours: [phone] * Paula Hernandez M.D. - 08/15/2023 9:09 AM CDT PROGRESS NOTE: No events. AFVSS. Pain controlled. No flatus. No further emesis overnight. Abdomen more distended than yesterday but remained soft, tender to deep palpation only, no rebound. Twenty-four [place] three-way catheter remains off CBI, draining [...] for CBI. He was subsequently transferred to [facility] 08/12 for difficulty irrigating his catheter [...] above was discussed with Dr. Brock, urology service consultant on-call who is in agreement with [...] Family to bring his home enzalutamide from [place] Irvin Franco Pharm.D., R.Ph. * Jakob De Paz M.D. - 08/14/2023 11:34 AM CDT PROGRESS NOTE: No events. AFVSS. Pain controlled. No flatus. Nauseous and had 2 episodes of emesis. Abdomen more distended than yesterday but remained soft, tender to deep palpation only, no rebound. Twenty-four New Zealander Alcock three-way catheter remains off CBI, draining [...] for CBI. He was subsequently transferred to [facility] 08/12 for difficulty irrigating his catheter [...] above was discussed with Dr. Brock, urology service consultant on-call who is in agreement with [...] Patient discussed with Dr. Sylvester. Page CCM3 [id number] Carlos Alberto Henson M.D. PGY-1 CCM 3 [...] who have asked we place a 24 New Zealander 3-way urinary catheter pending evaluation. We will [...] stent and hematuria who is transferred from [facility] ED with 3 days of hematuria [...] him to present to local hospital in [place]. OSH Course: His hemoglobin was in the [...] Insecurity: No Food Insecurity (02/16/2022) Received from [facility] [employer] [facility], [facility] Food Insecurity Worried About Running Out of Food in the Last Year: 1 Transportation Needs: No Transportation Needs (02/16/2022) Received from [facility], [facility] Transportation Needs Lack of Transportation (Medical): 1 Housing Stability: Low Risk (02/16/2022) Received from [facility], [facility] Housing Stability Unable to Pay for [...] Dr. Sylvester and Dr. Rodriguez. Page CCM3 [id number] Carlos Alberto Henson M.D. PGY-1 CCM 3 [...] As expected PRIMARY PROCEDURALIST FAY Cerna MD [phone] ASSISTANTS none COMPLICATIONS None. DRAINS None. IMPLANTS [...] peripheral vein targets. Ultrasound used for assessment: Arled[employer] Fit Provider contacted (include name): Uro Surg [...] STENT EXCHANGE; Surgeon: Boubacar Brock M.D.; Location: [facility] ROMB OR FAMILY HISTORY No family history [...] 14 -- AST U/L 25 -- Radiology: @[email or web address]@ Swallow Assessment: No data to display ASSESSMENT / PLAN #1 Hematuria ASSESSMENT Currently we are asked to visit with Mr. Vega for consideration of parenteral nutrition. Nutrition Needs: Height: 180 cm Admission Weight: 91.2 kg (08/13/2023) Current Weight: 90.2 kg BMI (Calculated): 27.8 kg/m?? Total Calorie Needs: 3024-3658 calories/day Method to Estimate Energy Needs: Garcia-Aiken ( ) Weight Used for Equation Calculations: [...] on electrolytes Please call NSS pager at [phone] at [facility] or [phone] at [facility] with any additional questions. * Gilbert [...] values in this interval not displayed. Radiology: @[email or web address]@ Swallow Assessment: No data to display ASSESSMENT / PLAN #1 Hematuria ASSESSMENT Currently we are asked to visit with Mr. Vega for consideration of parenteral nutrition. Nutrition Needs: Height: 180 cm Admission Weight: 91.2 kg (08/13/2023) Current Weight: 90.2 kg BMI (Calculated): 27.8 kg/m?? Total Calorie Needs: 0182-2240 calories/day Method to Estimate Energy Needs: kcal/kg [...] on electrolytes Please call NSS pager at [phone] at [facility] or [phone] at [facility] with any additional questions. BILLING/CODING Total [...] stent along with other stents and apparently slicing machine feeder in the past I recommended indefinite dual [...] documented in the history of present illness. [facility]@ OBJECTIVE Current Facility-Administered Medications: acetaminophen tablet 650 [...] 20 mL/hr, intravenous, Continuous, Frieda Garner APRN, SLIP FEEDER, Last Rate: 20 mL/hr at 08/15/23 1459, [...] but he can discuss this with his slicing machine feeder at home. We need to balance transfusion [...] and Treat Pertinent Medical / Surgical History: Klaen Vega has no past medical history on file. Kalen Vega has a past surgical history that includes Exploratory Laparotomy (N/A, 08/15/2023); CYSTOSCOPY FLEXIBLE (N/A, 08/15/2023); and Application Wound Vac Abdomen (N/A, 08/15/2023). History of Present Illness: Kalen Vega is a 83 y.o. male who was admitted to [facility] in [place] on 08/13/2023 for Hematuria [R31.9]. Relevant Medical History: Kalen Vega is a 83 y.o. 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 [...] or below 17 Clinicians answer the [facility] Inpatient Short Form based on [...] following coordination of care occurred with the die cutter apprentice/Caregiver Present: SonFavio Patient was left in bedside [...] 83 y.o. male who was admitted to [facility] in [place] on 08/13/2023 for Hematuria with cystotomy and [...] Min assist for mobility. Required assist for [id number]-bj-[id number] for force generation and is generally standby [...] Ongoing PT Goal #2: Patient will perform [id number] transfer with modified independence and least restrictive [...] - 08/16/2023 10:01 AM CDT Occupational Therapy [facility] Inpatient Evaluation/Treatment SUBJECTIVE Patient's Name: Kalen Vega Referring/Attending Provider: Boubacar Brock M.D. Reason for Referral: Occupational Therapy Evaluation and Treatment PERTINENT MEDICAL / SURGICAL HISTORY: Kalen Vega has no past medical history on file. Kalen Vega has no past surgical history on file. History of Present Illness: Kalen Vega is a 83 y.o. male who was admitted to [facility] in [place] on 08/13/2023 for Hematuria [R31.9]. Relevant Medical [...] with RN, PT Family/Caregiver Present: Son and [id number]. Home Living and Equipment: Lives with: Spouse/Significant [...] walker, Single point cane Adaptive Equipment Owned: Rn Transitional Care, Long Handled Shoe Horn Other DME Owned: Regular flat bed Prior Level of Function and Mobility: Basic Activities of Daily Living: Independent Instrumental Activities of Daily Living: Required Assistance: Laundry son assists with laundry and cooking Functional Mobility: Independent Driving: Yes Occupational Role: Retired Leisure Interests: watch movies, plays [employer] train, meets friends for breakfast. Patient/Caregiver Goals: [...] glasses all the time Outcome Measures: [facility] Inpatient Short Form: Putting on [...] or below 17 Clinicians answer the [facility] Inpatient Short Form based on [...] all are a great support. 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 Patient expressed understanding and was agreeable to [...] with his family when psychiatric social worker supervisor entered the room. He was engaged in [...] locally at approximately 3:00 a.m. a 22 New Zealander three-way catheter was placed and CBI wasinitiated. Unfortunately he clotted off the catheter multiple times despite manual irrigations, started to develop hypotension and tachycardia [facility] He relays the [...] non-distended, non-peritonitic Extremities: No edema : 22 New Zealander three-way Tabares catheter draining a minimal amount [...] urinary retention Given his non draining 22 New Zealander three-way catheter the Urology techs and I subsequently exchanged this for a 24 New Zealander three-way Alcock in the usual sterile fashion. [...] to follow [place] [phone] with questions or concerns Sixto Cain M.D. [...] peripheral vein targets. Ultrasound used for assessment: [employer]Let[employer] Fit Provider contacted (include name): Uro Surg [...] CDT Patient Transfer Note Patient transferred to: [facility] Room: [facility] Accompanied by: [...] signs? YES * Sixto Teague R.R.T., L.R.T., DONOR SERVICES MANAGER-[facility] - 08/14/2023 7:00 AM CDT Patient is [...] the last 24hours. Sixto Teague R.R.T., L.R.T., DONOR SERVICES MANAGER-[facility] 08/14/23 7:00 AM CDT Electronically signed by Sixto Teague R.R.T., L.R.T., DONOR SERVICES MANAGER-[facility] at 08/14/2023 7:02 AM CDT * Radha [...] Bladder Spontaneous Post-op Diagnosis Rupture Bladder Spontaneous Facilities Plant Engineer A press operator assistant actively participated and was necessary for [...] the supine flexed position. His existing 24 New Zealander three-way Tabares catheter was noted to be [...] additional tissue for additional coverage. A 24 New Zealander three-way catheter was placed with 15 cc in the balloon. This irrigated to light clear pink. A 15 New Zealander YARELI drain wasplaced into the pelvis exiting left lower quadrant. The fascia was closed with interrupted and [id number]-[id number] 0 PDS. Fat was approximated using 3-0 [...] RN, CPN, CCDS, CCS, CRC Clinical Documentation Boring Machine Operator Double End Query created by: ELMER Barker, RN, CPN, CCDS, CCS, CRC 08/25/2023 08:37 AM CDT </LCI> * Documentation Clarification - aJkob De Paz M.D. - 08/15/2023 3:00 PM [...] stent and hematuria who is transferred from [place] ED with 3 days of hematuria & [...] RN, CPN, CCDS, CCS, CRC Clinical Documentation Boring Machine Operator Double End Query created by: ELMER Barker, RN, CPN, [...] he felt completely obstructed and presented to [place] ED. [place] Course Attempted Tabares insertion but bladder irrigation was unsuccessful on multiple attempts. Hung 1U pRBC's. Given some volume and transferred to [facility] ICU ICU Course Urology consulted and [...] CDT Office Visit Department of Urology in [address] [phone] Burke Strauss M.D. [facility] [place] [phone] Discharge Disposition: Home or Self Care Pending [...] Antibody ID) (08/26/2023 6:50 AM CDT) Pathologist [facility] ABORh O Pos Not applicable 08/26/2023 7:16 AM CDT STRM Antibody Screen Negative Negative 08/26/2023 7:29 AM CDT STRM Type & Screen Expiration 08/29/2023 23:59 08/26/2023 7:16 AM CDT STRM Testing Location [place] DEFAULT 08/26/2023 6:57 AM CDT STRM Blood (Blood, Venous) 08/26/2023 6:50 AM CDT 08/26/2023 6:57 AM CDT Narrative Authorizing Provider Result Abdifatah Hernandez M.D. LAB BLOOD BANK TEST ORDERABLES [facility] [address] [place] [address], [facility] STRM [facility] [address] [place] [address] * (ABNORMAL) CBC without Differential (08/26/2023 3:20 [...] LAB BLOOD ADD-ON [facility] [address] [place], [place] [address] DTL [facility] [address] [place] [address] * Magnesium (08/26/2023 3:20 AM CDT) Magnesium, S 2.1 1.7 - 2.3 mg/dL 08/26/2023 4:04 AM CDT DTL Blood (Blood, Venous) 08/26/2023 3:20 AM CDT 08/26/2023 3:50 AM CDT Boubacar Brock M.D. LAB BLOOD ADD-ON [facility] [address] [place] [address], [facility] DTL [facility] [address] [place] [address] * (ABNORMAL) Renal Function Panel (08/26/2023 3:20 [...] LAB BLOOD ADD-ON [facility] [address] [place] [address], [facility] [address] [place] [address] * Heparin Anti-Xa Assay (08/26/2023 3:20 AM [...] Hoyt M.D. LAB BLOOD NON ADD -ON [facility] [address] [place] [address], [facility] [address] [place] [address] * (ABNORMAL) CBC without Differential (08/25/2023 3:24 [...] CDT Corin Ring M.D. LAB BLOOD ADD-ON [place] [address] [place] [address], [facility] [address] [address] * (ABNORMAL) Renal Function Panel (08/25/2023 3:24 [...] Address City/[facility]/ZIP Co de Phone Number [facility] [address] [place] [address] * Magnesium (08/25/2023 3:24 AM CDT) Magnesium, S 2.2 1.7 - 2.3 mg/dL 08/25/2023 4:36 AM CDT DTL Blood (Blood, Venous) 08/25/2023 3:24 AM CDT 08/25/2023 4:19 AM CDT Boubacar Brock M.D. LAB BLOOD ADD-ON Performing Organization Address City/[facility] Co de Phone Number [facility] [address] [place] [address], [place] [address] * Heparin Anti-Xa Assay (08/25/2023 3:24 AM [...] Address City/[facility]/ZIP Co de Phone Number [facility] [address] [place] [address], [facility] [address] [place] [address] * (ABNORMAL) CBC without Differential (08/24/2023 5:28 [...] M.D. LAB BLOOD ADD-ON Performing Organization Address City/State/[facility] Co de Phone Number [facility] [address] [place], [place] [id number] [place] [address] * Magnesium (08/24/2023 5:28 AM CDT) Magnesium, S 2.3 1.7 - 2.3 mg/dL 08/24/2023 6:19 AM CDT DTL Blood (Blood, Venous) 08/24/2023 5:28 AM CDT 08/24/2023 6:00 AM CDT Boubacar Brock M.D. LAB BLOOD ADD-ON Performing Organization Address City/[facility] Co de Phone Number [facility] [address] [place] [address], [address] [address] * (ABNORMAL) Renal Function Panel (08/24/2023 5:28 [...] BLOOD ADD-ON Performing Organization Address [facility]/ZIP Co de Phone Number [facility] [address] [place] [address], [facility] [address] [address] * Heparin Anti-Xa Assay (08/24/2023 5:28 AM [...] Address City/[facility]/ZIP Co de Phone Number [facility] [address] [place] [address] * (ABNORMAL) Potassium (08/23/2023 9:58 PM CDT) [facility] Potassium, S 3.5(L) 3.6 - 5.2 mmol/L 08/23/2023 10:45 PM CDT DT Blood (Blood, Venous) 08/23/2023 9:58 PM CDT 08/23/2023 10:30 PM CDT Boubacar Brock M.D. LAB BLOOD ADD-ON [facility] [address] [place] [address] * (ABNORMAL) Phosphorus Inorganic (08/23/2023 9:58 PM CDT) [facility] Phosphorus (Inorganic), S 2.1(L) 2.5 - 4.5 mg/dL 08/23/2023 10:45 PM CDT DT Blood (Blood, Venous) 08/23/2023 9:58 PM CDT 08/23/2023 10:30 PM CDT Paula Hernandez M.D. LAB BLOOD ADD-ON [facility] [address] [place] [address] * Heparin Anti-Xa Assay (08/23/2023 11:37 AM CDT) [facility] Heparin Anti-Xa, P 0.51 IU/mL 2023 12:42 PM CDT [facility] Comment: UFH therapeutic range: ?? 0.30-0.70 IU/mL [...] BLOOD NON ADD-ON [facility] [address] [place] [address], [address] [address] * (ABNORMAL) CBC without Differential (08/23/2023 3:42 AM CDT) [facility] Hemoglobin 8.3(L) 13.2 - 16.6 g/dL [...] Address City/[facility]/ZIP Co de Phone Number [facility] [address] [place], [place] [phone] [place] [address] 200 [place] [address] * Triglycerides (08/23/2023 3:42 AM CDT) Pathologist [facility] Triglycerides 106 mg/dL 08/23/2023 4:50 AM CDT DT Comment: ----REFERENCE VALUE---- Normal: <150 mg/dL Borderline High: 150-199 mg/dL High: 200-499 mg/dL Very High: > or =500 mg/dL Fasting (8 HR or more) Yes 08/23/2023 4:19 AM CDT DT Blood (Blood, Venous) 08/23/2023 3:42 AM CDT 08/23/2023 4:19 AM CDT Boubacar Brock M.D. LAB BLOOD ADD-ON Performing Organization Address City/[facility] Co de Phone Number [facility] [address] [place], [place] [phone] [place] [address] 200 [place] [address] * Magnesium (08/23/2023 3:42 AM CDT) [facility] Magnesium, S 2.2 1.7 - 2.3 mg/dL 08/23/2023 4:50 AM CDT DT Blood (Blood, Venous) 08/23/2023 3:42 AM CDT 08/23/2023 4:19 AM CDT Boubacar Brock M.D. LAB BLOOD ADD-ON [facility] [address] [place] [address] * (ABNORMAL) Renal Function Panel (08/23/2023 3:42 AM CDT) [facility] Potassium, S 3.1(L) 3.6 - 5.2 [...] Boubacar Brock M.D. LAB BLOOD ADD-ON [facility] [address] [place] [address], [place] [facility] [address] [place] [address] * Heparin Anti-Xa Assay (08/23/2023 3:41 AM [...] NON ADD-ON [facility] [address] [place] [address], [facility] [address] [place] [address] * Glucose, POCT (08/22/2023 11:38 PM CDT) [facility] Glucose, POCT, B 117 70 - 140 mg/dL 08/23/2023 1:06 AM CDT PCLX Site Capillary 08/23/2023 1:06 AM CDT PCLX Last Intake NPO 08/23/2023 1:06 AM CDT PCLX Blood 08/22/2023 11:3 8 PM CDT 08/23/2023 1:06 AM CDT Unknown Provider LAB POCT ORDERABLES- MANUAL POC [facility] [address] [place] [address], [facility] PCLX [facility] POC [address] [place] [address] * Heparin Anti-Xa Assay (08/22/2023 10:14 PM [...] ADD-ON [facility] [address] [place] [address], [facility] [address] [place] [address] * CT Abdomen Pelvis without IV Contrast [...] NON ADD-ON [facility] [address] [facility] [address] [place] [address] * Creatinine, Body Fluid (08/22/2023 3:30 PM [...] transport rates. All other fluids refer to www.mTrakss.com for further interpretive information. This test has been modified from the fourdrinier machine operator's instructions. Its performance characteristics were determined by [facility] in a manner consistent with CLIA requirements. This test has not been cleared or approved by the U.S. Food and Drug Administration. Fluid Type, Creatinine Fluid, Abdomen 08/22/2023 3:52 PM CDT DTL Fluid (Abdomen) 08/22/2023 3 :30 PM CDT 08/22/2023 6:36 PM CDT Corin Rnig M.D. LAB BODY FLUIDS AND STOOLS ORDERABLES [facility] [address] [place] [address], [place] DTL [facility] [address] [place] [address] * Transfuse Red Blood Cells : (08/22/2023 [...] of a right IJ vein single-lumen 4 New Zealander tunneled PowerPICC ready for immediate use. NR [...] advanced into the IVC and a 4 New Zealander dilator advanced over the wire and attached to a one-way stopcock. A suitable exit site in the right anterior chest was anesthetized and a small incision made. A 4 New Zealander single-lumen PowerPICC was then tunneled from the [...] Wireadvanced into the IVC and a 4 New Zealander dilator advanced over the wire andattached to a one-way stopcock. A suitable exit site in the right anteriorchest was anesthetized and a small incision made. A 4 New Zealander single-lumen PowerPICC was then tunneled fromthe skin [...] of a right IJ vein single-lumen 4 New Zealander tunneled PowerPICCready for immediate use. NR Kimi [...] LAB BLOOD ADD-ON Performing Organization Address City/[facility] Co de Phone Number [facility] [address] [place], [place] [phone] [place] [address] STMA [facility] [address] [place] [address] * Type and Screen (with Reflex Antibody ID) (08/22/2023 2:55 AM CDT) Pathologist [facility] ABORh O Pos Not applicable 08/22/2023 3:25 AM CDT STRM Antibody Screen Negative Negative 08/22/2023 3:38 AM CDT STRM Type & Screen Expiration 08/25/2023 23:59 08/22/2023 3:25 AM CDT STRM Testing Location [place] DEFAULT 08/22/2023 3:07 AM CDT STRM Blood (Blood, Venous) 08/22/2023 2:55 AM CDT 08/22/2023 3:07 AM CDT Latisha Whitehead M.D. LAB BLOOD BANK T EST ORDERABLES Performing Organization Address [facility] Co de Phone Number [facility] [address] [place] [address], [facility] STRM [facility] [address] [place] [address] * (ABNORMAL) Comprehensive Metabolic Panel (08/22/2023 2:40 AM CDT) Pathologist [facility] Potassium, S 3.2(L) 3.6 - 5.2 mmol/L [...] CDT Latisha Whitehead M.D. LAB BLOOD ADD-ON [id number] [place] [address] [facility] [address] [place] [address] * Heparin Anti-Xa Assay (08/22/2023 2:40 AM [...] Whitehead M.D. LAB BLOOD NON AD D-ON [facility] [address] [place] [address] * (ABNORMAL) APTT (Activated Partial Thromboplastin Time) (08/22/2023 2:40 AM CDT) Pathologist [facility] Activated Partial Thrombopl Time, P 64(H) 25 - 37 sec 08/22/2023 3:12 AM CDT STMA Blood (Blood, Venous) 08/22/2023 2:40 AM CDT 08/22/2023 3:01 AM CDT Latisha Whitehead M.D. LAB BLOOD ADD-ON [facility] [address] [place], [place] [phone] [place] [address] 200 [place] [address] * Triglycerides (08/21/2023 7:32 AM CDT) Triglycerides [...] BLOOD ADD-O N [facility] [address] [place], [place] [phone] [place] [address] [address] [place] [address] * Phosphorus Inorganic (08/21/2023 7:32 AM CDT) Pathologist [facility] Phosphorus (Inorganic), S 2.6 2.5 - 4.5 mg/dL 08/21/2023 9:03 AM CDT DTL Blood (Blood, Venous) 08/21/2023 7:32 AM CDT 08/21/2023 8:38 AM CDT Lizette Harvey M.D. LAB BLOOD ADD-O N [facility] [address] [place], [place] [phone] [place] [address] * Magnesium (08/21/2023 7:32 AM CDT) Magnesium, S 2.3 1.7 - 2.3 mg/dL 08/21/2023 9:03 AM CDT DTL Blood (Blood, Venous) 08/21/2023 7:32 AM CDT 08/21/2023 8:38 AM CDT Lizette Harvey M.D. LAB BLOOD ADD-O N [facility] [address] [place] [address], [facility] DTL [facility] [address] [place] [address] * (ABNORMAL) Basic Metabolic Panel (08/21/2023 7:32 [...] ADD-O N Performing Organization Address [facility] Co de Phone Number [facility] [address] [place], [place] [phone] [place] [address] [facility] [address] [place] [address] * (ABNORMAL) CBC without Differential (08/21/2023 7:32 [...] Address City/[facility]/ZIP Co de Phone Number [facility] [address] [place] [address], [facility] [address] [place] [address] * Heparin Anti-Xa Assay (08/21/2023 7:32 AM [...] Address City/[facility]/ZIP Co de Phone Number [facility] [address] [place] [address] * (ABNORMAL) APTT (Activated Partial Thromboplastin Time) (08/21/2023 7:32 AM CDT) Activated Partial Thrombopl Time, P 49(H) 25 - 37 sec 08/21/2023 8:31 AM CDT DT Blood (Blood, Venous) 08/21/2023 7:32 AM CDT 08/21/2023 8:06 AM CDT Boubacar Brock M.D. LAB BLOOD ADD-ON [facility] [address] [place] [address] * Place peripherally inserted central catheter (PICC) [...] the atrophic right kidney. Lizette Harvey M.D. [facility] CT PROCEDUR ES * (ABNORMAL) Basic Metabolic Panel (08/20/2023 3:19 AM CDT) [facility] Potassium, S 3.7 3.6 - 5.2 [...] BLOOD ADD-ON Performing Organization Address [facility] [facility] de Phone Number [facility] [address] [place] [address], [facility] 200 [place] [address] * (ABNORMAL) CBC without Differential (08/20/2023 3:19 [...] LAB BLOOD ADD-ON [facility] [address] [place], [place] [phone] [place] [address] 200 [place] [address] * (ABNORMAL) APTT (Activated Partial Thromboplastin Time) (08/20/2023 3:19 AM CDT) Activated Partial Thrombopl Time, P 52(H) 25 - 37 sec 08/20/2023 4:33 AM CDT DTL Blood (Blood, Venous) 08/20/2023 3:19 AM CDT 08/20/2023 4:10 AM CDT Boubacar Brock M.D. LAB BLOOD ADD-ON [facility] [address] [place], [place] [phone] [place] [address] 200 [place] [address] * (ABNORMAL) APTT (Activated Partial Thromboplastin Time) (08/19/2023 10:57 AM CDT) [facility] Activated Partial Thrombopl Time, P 54(H) 25 - 37 sec 08/19/2023 11:44 AM CDT DTL Blood (Blood, Venous) 08/19/2023 10:57 AM CDT 08/19/2023 11:26 AM CDT Boubacar Brock M.D. LAB BLOOD ADD-ON [facility] [address] [place], [place] [phone] [place] [address] 200 [place] [address] * (ABNORMAL) APTT (Activated Partial Thromboplastin Time) (08/19/2023 4:51 AM CDT) Pathologist [facility] Activated Partial Thrombopl Time, P 59(H) 25 - 37 sec 08/19/2023 5:53 AM CDT DTL Blood (Blood, Venous) 08/19/2023 4:51 AM CDT 08/19/2023 5:36 AM CDT Boubacar Brock M.D. LAB BLOOD ADD-ON Performing Organization Address City/[facility]/ZIP Co de Phone Number [facility] [address] [place] [address] * (ABNORMAL) APTT (Activated Partial Thromboplastin Time) (08/18/2023 10:03 PM CDT) Activated Partial Thrombopl Time, P 63(H) 25 - 37 sec 08/18/2023 10:41 PM CDT DTL Blood (Blood, Venous) 08/18/2023 10:03 PM CDT 08/18/2023 10:19 PM CDT Boubacar Brock M.D. LAB BLOOD ADD-ON Performing Organization Address City/[facility] Co de Phone Number [facility] [address] [place], [place] [phone] [place] [address] 200 [place] [address] * (ABNORMAL) APTT (Activated Partial Thromboplastin Time) (08/18/2023 2:50 PM CDT) Activated Partial Thrombopl Time, P 64(H) 25 - 37 sec 08/18/2023 3:25 PM CDT DTL Blood (Blood, Venous) 08/18/2023 2:50 PM CDT 08/18/2023 3:07 PM CDT Boubacar Brock M.D. LAB BLOOD ADD-ON Performing Organization Address City/[facility]/ZIP Co de Phone Number [facility] [address] 200 [place] [address] * (ABNORMAL) APTT (Activated Partial Thromboplastin Time) (08/18/2023 6:42 AM CDT) Pathologist [facility] Activated Partial Thrombopl Time, P 61(H) 25 - 37 sec 08/18/2023 7:28 AM CDT DT Blood (Blood, Venous) 08/18/2023 6:42 AM CDT 08/18/2023 7:04 AM CDT Boubacar Brock M.D. LAB BLOOD ADD-ON [facility] 200 [place] [address], [facility] 200 [place] [address] * (ABNORMAL) APTT (Activated Partial Thromboplastin Time) (08/17/2023 11:04 PM CDT) [facility] Activated Partial Thrombopl Time, P 40(H) 25 - 37 sec 08/17/2023 11:46 PM CDT DT Blood (Blood, Venous) 08/17/2023 11:04 PM CDT 08/17/2023 11:31 PM CDT Boubacar Brock M.D. LAB BLOOD ADD-ON [facility] [address] [place] [address], [facility] 200 [place] [address] * US Lower Extremity Veins Bilateral (08/17/2023 [...] and management can be found on the [employer] site. Link [email or web address]://Soccer Manageryoexpert.[facility].org/topic/clinical-answers/[email or web address]/cpm-[email or web address] 93283 Findings discussed with ??Tayler Greenwood, ?? ([id number]) on 08/17/2023 7:11 PM. Procedure Note Jj [...] theAskMayoExpert site. Linkhttps://[email or web address].[email or web address].org/topic/clinical-answers/[email or web address]/[facility] -2049 1725 Findings discussed with Tayler Greenwood MD ([id number]) on 08/17/2023 7:11 PM. IMPRESSION: 1. 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 2. No acute left-sided DVT. Corin Ring M.D. IMG US PROCEDURES * APTT (Activated Partial Thromboplastin Time) (08/17/2023 4:56 PM CDT) Activated Partial Thrombopl Time, P 29 25 - 37 sec 08/17/2023 5:10 PM CDT [facility] Blood (Blood, Venous) 08/17/2023 4:56 PM CDT 08/17/2023 5:00 PM CDT Paula Hernandez M.D. LAB BLOOD ADD-ON [facility] [address] [place] [address], [facility] [address] [place] [address] * ECG 12 Lead (08/16/2023 9:43 PM CDT) Pathologist [facility] Ventricular Rate ECG/Min 134 BPM MUSE WY Interval 136 ms MUSE QRSD Interval 76 ms MUSE QT Interval 298 ms MUSE QTC Interval 445 ms MUSE P Ducor 29 degrees MUSE R Ducor -6 degrees MUSE T Wave Ducor 21 degrees MUSE 08/16/2023 9:43 PM CDT [...] BLOOD ADD-ON [facility] [address] [place] [address], [facility] [address] [place] [address] * (ABNORMAL) Basic Metabolic Panel (08/16/2023 9:40 [...] ADD-ON [facility] [address] [place] [address], [facility] DTL [facility] [address] [place] [address] * Transfuse Red Blood Cells : (08/16/2023 [...] BLOOD ADD-ON Performing Organization Address [facility] Co de Phone Number [facility] [address] [place], [place] [phone] [place] [address] DTL [facility] [address] [place] [address] * (ABNORMAL) CBC without Differential (08/16/2023 3:10 [...] Address City/[facility]/ZIP Co de Phone Number [facility] [address] [place] [address], [facility] DTL [facility] [address] [place] [address] * (ABNORMAL) CBC with Differential, Blood (08/15/2023 [...] Alberto Henson M.D. LAB BLOOD ADD-ON [facility] [address] [place] [address], [facility] DTL [facility] [address] [place] [address] [facility] [address] [place] [address] * DX Abdomen 1 View (08/15/2023 1:19 [...] 37.0 deg C 08/15/2023 12:04 PM CDT [facility] Blood 08/15/2023 11:5 6 AM CDT 08/15/2023 12:03 PM CDT Rae Gonzalez AUTH SPECIALIST, SLIP FEEDER, DNAP LAB BLOO D NON ADD-ON [facility] [address] [place] [address], [place] [facility] [address] [place] [address] * Lactate, B - Intra-op (08/15/2023 11:56 AM CDT) Lactate, B 1.1 0.5 - 2.2 mmol/L 08/15/2023 12:06 PM CDT STMA Blood (Blood, Venous) 08/15/2023 11:56 AM CDT 08/15/2023 12:03 PM CDT Hayde Song M.D. LAB BLOOD NON ADD-O N [facility] [address] [place], [place] [phone] [place] [address] 200 [place] [address] * (ABNORMAL) Glucose, Whole Blood (08/15/2023 11:56 AM CDT) Glucose 144(H) 70 - 140 mg/dL 08/15/2023 12:06 PM CDT STMA Blood (Blood, Arterial Line) 08/15/2023 11:56 AM CDT 08/15/2023 12:03 PM CDT Hayde Song M.D. LAB BLOOD ADD-ON Performing Organization Address City/[facility]/ZIP Co de Phone Number [facility] [address] [place], [place] [phone] [place] [address] 200 [place] [address] * Potassium, Blood (08/15/2023 11:56 AM CDT) Potassium, B 4.3 3.6 - 5.2 mmol/L 08/15/2023 12:07 PM CDT STMA Blood (Blood, Arterial Line) 08/15/2023 11:56 AM CDT 08/15/2023 12:03 PM CDT Hayde Song M.D. LAB BLOOD NON ADD-O N [facility] [address] [place], [place] [address] [place] [address] [address] [place] [address] * Sodium, B (08/15/2023 11:56 AM CDT) Sodium, B 135 135 - 145 mmol/L 08/15/2023 12:06 PM CDT STMA Blood (Blood, Arterial Line) 08/15/2023 11:56 AM CDT 08/15/2023 12:03 PM CDT Hayde Song M.D. LAB BLOOD NON ADD-O N Performing Organization Address City/[facility]/ZIP Co de Phone Number [facility] [address] [place] [address] * (ABNORMAL) Calcium, Ionized (08/15/2023 11:56 AM CDT) Calcium, Ionized, B 4.53(L) 4.65 - 5.30 mg/dL 08/15/2023 12:07 PM CDT STMA Blood (Blood, Arterial Line) 08/15/2023 11:56 AM CDT 08/15/2023 12:03 PM CDT Hayde Song M.D. LAB BLOOD NON ADD-O N Performing Organization Address City/[facility] Co de Phone Number [facility] [address] [place], [place] [phone] [place] [address] 200 [place] [address] * (ABNORMAL) Blood Gas with Coox, Arterial [...] ADD-O N [facility] [address] [place] [address], [facility] STMA [facility] 200 [place] [address] * [place] Fluoro Less Than 1 Hour [...] 08/15/2023 10:28 AM CDT Rae Gonzalez APRN, SLIP FEEDER, DNAP LAB BLOO D NON ADD-ON [facility] [address] [place] [address] * Lactate, B - Intra-op (08/15/2023 10:28 AM CDT) Lactate, B 1.1 0.5 - 2.2 mmol/L 08/15/2023 10:30 AM CDT STMA Blood (Blood, Venous) 08/15/2023 10:28 AM CDT 08/15/2023 10:28 AM CDT Hayde Song M.D. LAB BLOOD NON ADD-O N Performing Organization Address City/[facility]/ZIP Co de Phone Number [facility] [address] [place], [place] [phone] [place] [address] 200 [place] [address] * Glucose, Whole Blood (08/15/2023 10:28 AM CDT) Glucose 134 70 - 140 mg/dL 08/15/2023 10:30 AM CDT [facility] Blood (Blood, Arterial Line) 08/15/2023 10:28 AM CDT 08/15/2023 10:28 AM CDT Hayde Song M.D. LAB BLOOD ADD-ON [facility] [address] [place] [address] * Potassium, Blood (08/15/2023 10:28 AM CDT) Potassium, B 4.1 3.6 - 5.2 mmol/L 08/15/2023 10:31 AM CDT STMA Blood (Blood, Arterial Line) 08/15/2023 10:28 AM CDT 08/15/2023 10:28 AM CDT Narrative Authorizing Provider Result Abdifatah Song M.D. LAB BLOOD NON ADD-O N [facility] [address] [place] [address] * Sodium, B (08/15/2023 10:28 AM CDT) Sodium, B 135 135 - 145 mmol/L 08/15/2023 10:30 AM CDT STMA Blood (Blood, Arterial Line) 08/15/2023 10:28 AM CDT 08/15/2023 10:28 AM CDT Narrative Authorizing Provider Result Abdifatah Song M.D. LAB BLOOD NON ADD-O N Performing Organization Address City/[facility]/ZIP Co de Phone Number [facility] [address] [place] [address] * (ABNORMAL) Calcium, Ionized (08/15/2023 10:28 AM CDT) Calcium, Ionized, B 4.25(L) 4.65 - 5.30 mg/dL 08/15/2023 10:31 AM CDT STMA Blood (Blood, Arterial Line) 08/15/2023 10:28 AM CDT 08/15/2023 10:28 AM CDT Narrative Authorizing Provider Result Abdifatah Song M.D. LAB BLOOD NON ADD-O N [facility] [address] [place] [address] * (ABNORMAL) Blood Gas with Coox, Arterial [...] ADD-O N [facility] [address] [place] [address], [facility] STMA [facility] [address] [place] [address] * Bacteria / Yomaira Culture, Blood #2 [...] G ENERAL ORDERABLES [facility] [address] [place] [address], [facility] DTL [facility] [address] [place] [address] * (ABNORMAL) Basic Metabolic Panel (08/15/2023 3:31 AM CDT) [facility] Potassium, S 4.0 3.6 - 5.2 [...] Address City/[facility]/ZIP Co de Phone Number [facility] [address] [place] [address] * Bacteria / Yomaira Culture, Blood #1 (08/15/2023 3:31 AM CDT) [facility] Bacteria/Leyla da Culture, Blood No growth after 5 days of incubation. 08/20/2023 6:02 AM CDT DTL Blood (Blood, Peripheral Draw) 08/15/2023 3:31 AM CDT 08/15/2023 5:59 AM CDT Comment:Specimen Source Site : Blood Carlos Alberto Henson M.D. LAB MICROBIOLOGY - G ENERAL ORDERABLES Performing Organization Address [facility] Co de Phone Number [facility] [address] [place] [address] * (ABNORMAL) CBC with Differential, Blood (08/15/2023 3:30 AM CDT) [facility] Hemoglobin 9.5(L) 13.2 - 16.6 g/dL [...] LAB BLOOD ADD-ON [facility] [address] [place] [address], [facility] DTL [facility] [address] [place] [address] [address] * (ABNORMAL) CBC with Differential, Blood (08/14/2023 8:08 PM CDT) [facility] Hemoglobin 9.8(L) 13.2 - 16.6 g/dL [...] ADD-ON [facility] [address] [place] [address], [facility] STMA [facility] [address] [place] [address] [facility] [address] [place] [address] * Transfuse Red Blood Cells : , [...] ADD-ON [facility] [address] [place] [address], [facility] STMA [facility] [address] [place] [address] [facility] [address] [place] [address] * (ABNORMAL) Basic Metabolic Panel (08/14/2023 3:18 AM CDT) [facility] Potassium, S 5.4(H) 3.6 - 5.2 [...] LAB BLOOD ADD-ON [facility] [address] [place] [address], [facility] [address] [place] [address] * Type and Screen (with Reflex Antibody [...] Henson M.D. LAB BLOOD BANK TEST ORDERABLES [facility] [address] [place], [place] [address]The[facility] [place] [facility] [address] [place] [address] * (ABNORMAL) Bacteria / Yomaira Culture, Blood #1 (08/13/2023 7:35 PM CDT) [facility] Bacteria/Cand jessica Culture, Blood ESCHERICHIA COLI Growth after 11 Hours (A) 08/16/2023 11:17 AM CDT DT Comment: 3 of 3 Bottles, Susceptibilities performed on another specimen [id number] Blood (Blood, Peripheral Draw) 08/13/2023 7:35 PM CDT 08/13/2023 8:15 PM CDT Comment:Specimen Source Site : Blood Carlos Alberto Henson M.D. LAB MICROBIOLOGY - G ENERAL ORDERABLES [facility] [address] [place] [address], [facility] [address] [place] [address] * ECG 12 Lead (08/13/2023 7:02 PM CDT) Ventricular Rate ECG/Min 128 BPM MUSE WY Interval 138 ms MUSE QRSD Interval 64 ms MUSE QT Interval 304 ms MUSE QTC Interval 443 ms MUSE P Ducor 45 degrees MUSE R Ducor 34 degrees MUSE T Wave Ducor 46 degrees MUSE 08/13/2023 7:02 PM CDT [...] Alberto Henson M.D. LAB MICROBIOLOGY - [facility] ORDERABLES [facility] [address] [place] [address], [facility] DTOr[facility] LaboratoriesMount [facility] [address] [place] [address] * Magnesium (08/13/2023 5:27 PM CDT) [facility] Signature Magnesium, S 1.9 1.7 - 2.3 mg/dL 08/13/2023 6:12 PM CDT DTL Blood (Blood, Venous) 08/13/2023 5:27 PM CDT 08/13/2023 5:58 PM CDT Carlos Alberto Henson M.D. LAB BLOOD ADD-ON [facility] [address] [place] [address], [facility] [address] [place] [address] * (ABNORMAL) Hepatic Function Panel (08/13/2023 5:27 [...] BLOOD ADD-ON [facility] [address] [place] [address], [facility] [address] [place] [address] * (ABNORMAL) Basic Metabolic Panel (08/13/2023 5:27 [...] ADD-ON [facility] [address] [place] [address], [facility] [address] [place] [address] * Prothrombin Time (PT) (08/13/2023 5:27 PM [...] ADD-ON [facility] [address] [place] [address], [facility] STMA [facility] [address] [place] [address] * (ABNORMAL) CBC with Differential, Blood (08/13/2023 [...] BLOOD ADD-ON [facility] [address] [place] [address], [facility] STMA [facility] [address] [place] [address] DHPM [facility] [address] [place] [address] * (ABNORMAL) Dipstick, Urine (08/13/2023 5:07 PM [...] Address City/[facility]/ZIP Co de Phone Number [facility] [address] [place] [address], [facility] DTL [facility] [address] [place] [address] * Osmolality, Urine (08/13/2023 5:07 PM CDT) Osmolality, U 351 150 - 1150 mOsm/kg 08/13/2023 7:46 PM CDT DTL Urine 08/13/2023 5:07 PM CDT 08/13/2023 5:45 PM CDT Carlos Alberto Henson M.D. LAB URINE ORDERABLES Performing Organization Address [facility] Co de Phone Number [facility] [address] [place] [address], [facility] [address] [place] [address] * (ABNORMAL) Microscopic Manual (08/13/2023 5:07 PM [...] LAB URINE ORDERABLES Performing Organization Address City/[facility] Co de Phone Number [facility] [address] [place] [address], [facility] [address] [place] [address] * pH, Random, Urine (08/13/2023 5:07 PM CDT) pH, Random, U 7.0 4.5 - 8.0 08/13/2023 7:46 PM CDT DTL Urine 08/13/2023 5:07 PM CDT 08/13/2023 5:45 PM CDT Carlos Alberto Henson M.D. LAB URINE ORDERABLES [facility] [address] [place] [address], [place] [facility] [address] [place] [address] * (ABNORMAL) Bacterial Culture, Aerobic + Susceptibility, [...] Alberto Henson M.D. LAB MICROBIOLOGY - [facility] ORDERABLES [address] [address], [facility] DTL [address] [address] * (ABNORMAL) Urinalysis, with Microscopic: Urine, Midstream [...] CDT DTL Predicted 24 [place] [address](H) <229 mg/24 h 08/13/2023 8:50 PM CDT DTL Predicted Range [id number] mg/24 h 08/13/2023 8:50 PM CDT DTL Comment Micro done on <2.5 mL 08/13/2023 7:55 PM CDT DTL Urine (Urine, Midstream) 08/13/2023 5:07 PM CDT 08/13/2023 5:44 PM CDT Calros Alberto Henson M.D. LAB URINE ORDERABLES [facility] [address] [place] [address], [place] DTL [facility] [address] [place] [address] * Interpretation of Outside CT Abdomen and [...] use home supply. 08/17/23: Id'ed by [facility] Rx# [id number], filled 07/22/23. HAZARDOUS - Handle with care. Swallow whole. Do NOT crush, chew or open capsule. Given 08/26/2023 9:12 AM CDT 120 mg Given 08/25/2023 9:08 AM CDT 120 mg Given 08/24/2023 9:12 AM CDT 120 mg Lactated Ringer's 1.5 mL/kg/hr ? 75 kg Ramey weight (112.5 mL/hr, rounded to 113 mL/hr), intravenous, Continuous, Starting on Tue08/22/23 at 1030, Conditional Phase Pre-Gastrografin Administration. (Rate = 1.5 mL/kg/hr ideal body weight) Lactated Ringer's 0.75 mL/kg/hr ? 75 kg Ramey weight (56.25 mL/hr, rounded to 56.3 mL/hr), [...] 0012 (Not Given - Provider: Brittni Howe RRitesh. - Reason: Patient/family refused)0615 (Given - Provider: [...] Howe RNarendra)1521 (Given - Provider: Mary Rosado R.N.) 0640 [...] use home supply. 08/17/23: Id'ed by [facility] Rx# [id number], filled 07/22/23. HAZARDOUS - Handle with care. Swallow whole. Do NOT crush, chew or open capsule. 09 (Given - Provider: Tayler Forrest R.N. - Comment: Pat Murray, -2nd RN) 09 (Given - Provider: Tayler Forrest R.N. - Comment: Pt 's own med from home) 911 (Given - Provider: Lupe Valdez R.N.) fat emulsion [id number] & fish oil infusion 50 g (SMOFlipid) [...] 2100 0911 (Given - Provider: Tayler Forrest R.N.)2152 (Given - Provider: Fatuma See R.N.) 0907 (Given - Provider: Tayler Forrest R.N.)2131 (Given [...] RN)2125 (New Bag - Provider: Antonia Salazar RJonahNJonah)2328 (Handoff - Provider: Edith Simental R.N. - Comment: w/ antonia MCCULLOUGH) 0407 (Rate/Dose Change - Provider: Edith Simental RJonahNJonah)0729 (Handoff - Provider: Lupe Valdez R.N. - Comment: Verified with JAMEL Sharma)1153 (Stopped - Provider: Lupe Valdez R.N.) Lactated Ringer's 1.5 mL/kg/hr ? 75 kg Ramey weight (112.5 mL/hr, rounded to 113 mL/hr), intravenous, Continuous, Starting on Tue08/22/23 at 1030, Conditional Phase Pre-Gastrografin Administration. (Rate = 1.5 mL/kg/hr ideal body weight) Lactated Ringer's 0.75 mL/kg/hr ? 75 kg Ramey weight (56.25 mL/hr, rounded to 56.3 mL/hr), [...] 1547 documented in this encounter Care Teams Fiscal Accountant Relationship Specialty Start Date End Date Elsewhere, Pcp PCP - General Internal Medicine 08/13/23 documented as of this encounter
--- OUTSIDE RECORDS SUMMARY | 2023-10-28 12:39 | XMS_ITS | Encounter Summary ---
Author Organization [facility] Address [address] [place] [address] Care Team Providers Care Assembly Machine Set Up Mechanic Name Role Phone Elsewhere, Pcp Primary [...] CDT Office Visit Department of Urology in [address] [phone] Burke Strauss M.D. 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
--- OUTSIDE RECORDS SUMMARY | 2023-10-28 12:39 | XMS_ITS | Encounter Summary ---
Author Organization [facility] Address [address] [place] [address] Care Team Providers Care Shipping Order Clerk Name Role Phone Elsewhere, Pcp Primary Care Provider Unavailabl e Encounter Details Date Type Department Care Team (Late st Contact Info) Description 08/13/2023 4:35 PM CDT Ancillary Procedure Department of Radiology in [place], [place] [address] [place] [address] Carlos Alberto Henson M.D. [address] [place] [address] Social History Tobacco Use Types Packs/Day Years Used Date Smoking Tobacco: Never Smokeless Tobacco: Never [facility] Utilities Answer Date Recorded In the past 12 months has [facility] [employer], gas, oil, or water [employer] threatened to shut off services in your [...] CDT Office Visit Department of Urology in [address] [phone] Burke Strauss M.D. [address] [place] [phone] Discharge Disposition: Home or Self Care documented [...] on filedocumented in this encounter Care Teams Shipping Order Clerk Relationship Specialty Start Date End Date Elsewhere, Pcp PCP - General Internal Medicine 08/13/23 documented as of this encounter
--- OUTSIDE RECORDS SUMMARY | 2023-10-28 12:39 | XMS_ITS | Data Portability ---
Author Organization [facility], [facility] Address [address] [place] [address] Care Team Providers Care Finisher [employer] Name Role Phone MASOUD SAUER Primary Care Provider Assessment No assessment recorded. Plan of Treatment Reminders Order Date Submit Date Provider Last Modified By Organization Details Last Modified Time Details Appointments None recorded . Lab urinalys is, dipstick 2023 024 [email or web address] [facility], [address] [place], [address], 4 15:08:54 culture, urine 2023 024 [facility], [address], [place], [address], 4 10:11:11 Referral None recorded . Procedures None recorded . Surgeries cystosco py with ureteral stent exchange (SURG) 2021 022 [email or web address] Not available 16:50:47 cystosco py with ureteral stent exchange (SURG) 2021 022 [email or web address] Not available 15:46:30 Imaging None recorded . Medication Orders Myrbetri q 50 mg tablet,e xtended release 2021 022 [place] [facility][id number], [address] [place], [place], [phone], 2 17:50:02 Bactrim DS 800 mg-160 mg tablet 2023 024 [email or web address] [facility] #[id number], [address] [facility], [place], [place], [id number], 16:19:28 Patient TargetsNo targets recorded. Patient InstructionsNo instructions recorded. Reason for Referral None Reported. Results Created Date Observation Date Name Description Value Unit Range Abnormal Flag LastModifiedBy Organization Detail LastModifiedTime 06/23/1906/23/2023 URINE CULTU RE final report MICROB IOLOGY RESULT S Not Available [facility] [address], [place], [address], 06/25/2023 10:11:11 06/23/19 24 06/23/2023 urina lysis , dipst ick Color-Status Red Not Available [facility] [address], [place], [address], 06/23/2023 15:08:10 06/23/19 24 06/23/2023 urina lysis , dipst ick pH-Status 7.5 Not Available [facility] [address], [place], [address], 06/23/2023 15:08:10 06/23/19 24 06/23/2023 urina lysis , dipst ick Protein-Stat us >=9.0 Not Available [facility] [address], [place], [address], 06/23/2023 15:08:10 06/23/19 24 06/23/2023 urina lysis , dipst ick Nitrates-Sta tus negati ve Not Available [facility] [address], [place], [address], 06/23/2023 15:08:10 06/23/19 24 06/23/2023 urina lysis , dipst ick Blood-Status Large Not Available [facility] [address], [place], [address], 06/23/2023 15:08:10 06/23/19 24 06/23/2023 urina lysis , dipst ick Leuko-Status Negati ve Not Available [facility] [address], [place], [address], 06/23/2023 15:08:10 06/23/19 24 06/23/2023 urina lysis , dipst ick Specimen Type Voided Not Available [facility] [address], [place], [address], 06/23/2023 15:08:10 07/04/19 24 07/01/2023 CT, abdom en + pelvi s, w/o contr ast No observ ation [facility]. [email or web address] [address] [facility], [place], [address], 09/01/2023 14:40:29 07/18/19 24 07/18/2023 XR, kidne y + urete r + bladd er No observ ation record ed. [email or web address] [facility] [address], [place], [address], 07/22/2023 15:56:19 Result Notes None recorded. Procedures Surgical History Date Name Laterality Status Provider Name and Address Organization Details Recorded Time Bladder Scan completed Rabia matthews, [facility] 06/23/2023 15:08:00 Cystoscopy completed Nicola Ware MD [address] [place] [address],[address], [place], [address], [facility] 12/30/2021 17:11:17 Colonoscopy completed Nicola Ware MD [address] [place] [address],[address], [place], [address], [facility] 12/30/2021 17:11:22 Imaging Results Imaging Date Name Status LastModified by [facility] Details LastModified Time 07/01/2023 CT, abdomen + pelvis, w/o contrast completed [facility] [address], [place], [address], 09/01/2023 14:40:29 07/18/2023 XR, kidney + ureter + bladder completed [facility] [address], [place], [address], 07/22/2023 15:56:19 Procedure Notes None recorded. Medical [...] PY PREP INSTRUCTI ONS RECEIVED FROM [facility] active Not Available Not Available No t Available furosemide 20 mg tablet TAKE 1 TABLET BY MOUTH DAILY active Not Available Not Available No t Available cefuroxime axetil 500 mg tablet active Not Available Not Available No t Available polyethylen e glycol 3350 17 gram/dose oral powder MIX AND DRINK DIRECTED IN [facility] PY PREP INSTRUCTI ONS RECEIVED FROM [facility] active Not Available Not Available No t [...] Updated DateTime 12/30/2021 177.8 cm 27.4 kg/m2 33518.14 g Nicola Ware MD [address] [place] [address], [address] 12/30/2021 17:10:12 Date Recorded Body height Body mass index (BMI) Body weight Provider Name and Address Organization Details Last Updated DateTime 03/12/2022 177.8 cm 27.4 kg/m2 15027.14 g Rabia Ferrell [facility] 03/12/2022 13:55:47 Social History Question Answer Notes LastModified by Organizat ion Details LastModified Time Tobacco Smoking Status Never Smoker Nicola Ware MD [address] [place] [address], [address], [facility] 12/30/2021 17:11:00 What Is Your Level [...] Encounter Closed Date Diagnosis/Indication Diagnosis SNOMED-CT Code [id number] Nicola Ware MD [facility] [address] [place] [address] 12/30/2021 16:01:19 01/01/2022 09:36:50 Increased frequency of urination 945984750 Malignant tumor of prostate 200485260 Hydronephrosis [id number] [id number] Aliza Landeros [facility] [address] [place] [address] 03/12/2022 13:13:50 03/15/2022 14:00:47 Increased frequency of urination 883043461 Malignant tumor of prostate 165197531 Hydronephrosis [id number] [id number] Nicola Ware MD [facility] [address] [place] [address] 06/23/2023 14:16:52 06/24/2023 08:40:38 Blood in urine [id number] Health Concerns Section Related Observation LastModified by Organization Detai ls LastModified Time None Recorded Concern Status LastModified by Organization Details LastModified Time None Recorded Advance Directives Directive None Recorded Payers Encounter Date Sequence Insurance Name Policy Number Policy Krishnan Covered Member ID Krishnan Member ID Guarantor Name 12/30/2021 1 [employer] (MEDICARE REPLACEMENT/ ADVANTAGE - PPO) [id number] José Miguel D Braucher [id number] José Miguel D Braucher 03/12/2022 1 [employer] (MEDICARE REPLACEMENT/ ADVANTAGE - PPO) [id number] José Miguel D Braucher [id number] José Miguel D Braucher 06/23/2023 1 [employer] (MEDICARE REPLACEMENT/ ADVANTAGE - PPO) [id number] José Miguel D Braucher [id number] José Miguel D Braucher Notes Date Note Type Note Provider Name and Address Organization Details Recorded Time 12/30/2021 text/html HPI Notes: Excer pt from hospital consultation... 81 y.o. year old male who was admitted to [facility] for gross hematuria & CT findings. Onset [...] some of the history. Nicola Ware MD [address] [place] [address],[address], [place], [address], [facility] 12/30/2021 23:07:10 03/12/2022 text/html HPI Notes: Excer pt from hospital consultation... 81 y.o. year old male who was admitted to [facility] for gross hematuria & CT findings. Onset [...] sessions of primary radiation therapy with Dr. Frazire (03/27/20 - 04/28/20). Reports that he is [...] some of the history. Nicola Ware MD [address] [place] [address],[address], [place], [address], [facility] 03/12/2022 17:21:47 06/23/2023 text/html HPI Notes: 83 Y male here after calling triage this AM with hematuria/pain with urination. Patient has stent in place, last exchange 02/08/2022. 06/23/23 visit completed by Curry Ware MD [address] [place] [address],[address], [place], [address], [facility] 06/23/2023 16:19:33
--- OUTSIDE RECORDS SUMMARY | 2023-10-28 12:39 | XMS_ITS | Clinical Summary ---
Author Organization [facility] s [facility] [address] [employer] Address [place], [place] [address] Care Team Providers Care Stunner And Shackler Name Role Phone Cesar Mccollum MD Primary Care Provider Nicola Ware MD Unavailable [phone] Mireya Tan MD Unavailable [phone] [facility] [place] Unavailable [phone] Allergies No known active allergies Medications Medication [...] iron, carbonyl (Perfect Iron) 25 mg iron tabIndications:Prison Warden junior blood loss anemia 1 tablet p.o. 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 UGD=745.87 Bladder mass 02/29/2020 04/30/2020 Hematuria 02/29/2020 03/05/2020 Acute deep vein thrombosis (DVT) 02/29/2020 11/20/2020 S/P coronary angioplasty 11/03/2016 Chest pain 09/15/2016 03/05/2020 Elevated prostate specific antigen (PSA) 10/06/2010 03/05/2020 Hip arthritis 10/06/2010 03/05/2020 Colon polyp 07/15/2010 PATRICE (acute kidney injury) Obstructive uropathy 020 Encounters Date Type Department Care Team Description 10/24/2023 11:00 AM CDT Home Care Visit [address] [address] Doreen Hussein, RN SN - HOME VISIT 10/24/2023 10:00 AM CDT Home Care Visit [address] [address] Liz Fang, GLOVE EXAMINER DRY CAN TENDER - HOME VISIT 10/21/2023 12:00 PM CDT Home Care Visit [address] [address] Raffy Carter, PT PT - HOME VISIT 10/20/2023 10:35 AM CDT Office Visit [facility] [address] [place] [address] Cesar Mccollum MD Follow Up; Concerns (Discuss protocol for hyperbaric treatment at hospital) 10/20/2023 Travel 10/19/2023 9:45 AM CDT Home Care Visit [address] [address] Rigo Heatr RN SN - HOME VISIT 10/18/2023 Home Care Visit [address] [address] Milli Torre, RN CARE COORDINATION 10/17/2023 3:00 PM CDT Home Care Visit [address] [address] Raffy Carter, PT PT - HOME VISIT 10/17/2023 10:00 AM CDT Home Care Visit [address] [address] Liz Fang [facility] DRY CAN TENDER - INITIAL ASSESSMENT 10/14/2023 Home Care Visit [address] [address] Raffy Carter, PT PT - MISSED VISIT 10/12/2023 Telephone [facility] [address] [place] [address] Cesar Mccollum MD Questions 10/11/2023 7:15 AM CDT Home Care Visit [address] [address] Manav Montero RN SN - WOUND/OSTOMY CHART CONSULT 10/10/2023 4:00 PM CDT Home Care Visit [address] [address] Deonna Oliveira PTA PT - HOME VISIT 10/10/2023 10:30 AM CDT Home Care Visit [address] [address] Milli Torre, RN SN - HOME VISIT 10/08/2023 9:00 AM CDT Home Care Visit [address] [address] Justyna Hernandez RN SN - INITIAL ASSESSMENT 10/08/2023 Telephone [facility] [address] [place] [address] Cesar Mccollum MD Home Care (BP med parameters) 10/07/2023 11:30 AM CDT Home Care Visit [address] [address] Raffy Carter, PT PT - HOME VISIT 10/07/2023 Home Care Visit [address] [address] Milli Torre, RN CARE COORDINATION 10/06/2023 1:00 PM CDT Ancillary Procedure [facility] [place] [address] [place] [address] 10/06/2023 Travel 10/04/2023 1:00 PM CDT Office Visit [facility] [address] [place] [address] Souleymane Miller MD Follow Up (Annual Follow up /Coronary artery disease) 10/04/2023 10:15 AM CDT Home Care Visit [address] [address] Manav Rodríguez, PT PT - OASIS START OF CARE 10/04/2023 Telephone [facility] [address], [place] [address] Manav Rodríguez, PT Home Care 10/04/2023 Orders Only [facility] [address] [place] [address] Souleymane Miller MD 1 scan: (1-Ord) NFLD-EKG-10/04/23 10/04/2023 Travel 10/04/2023 Plan of Care Documentation [address] [address] 10/03/2023 Telephone [facility] [address] [place] [address] Cesar Mccollum MD 10/02/2023 Home Care Visit [address] [place] [address] Saul Lawson, RN CARE COORDINATION 10/01/2023 Home Care Visit [facility] [address] [place] [address] Saul Lawson, RN CARE COORDINATION 09/29/2023 1:40 PM CDT Office Visit [facility] [address] [place] [address] Cesar Mccollum MD Hospital F/U ([place], urinary problem); Concerns (Bed sore - would like checked) 09/29/2023 Travel 09/23/2023 Telephone [facility] [address] [place] [address] Cesar Mccollum MD Results 09/22/2023 10:30 AM CDT Orders [place] [address] [place] [address] Lab, [facility] 09/22/2023 9:50 AM CDT Nurse/Clinic Staff Only [place] [address] [place] [address] Dressing Change 09/22/2023 Telephone [facility] [address] [place] [address] Cesar Mccollum MD Results 09/22/2023 Travel 09/21/2023 3:20 PM CDT Nurse/Clinic Staff Only [facility] [address] [place] [address] Procedure (UA collection from jon and neph tube) 09/21/2023 Telephone [facility] [address] [place] [address] Letty Mera MD 09/20/2023 2:15 PM CDT Ancillary Procedure [facility] [address] [place] [address] 09/20/2023 1:00 PM CDT Office Visit [facility] [address] [place] [address] Letty Mera MD Hospital F/U (Admission Date: 09/09/2023 Discharge Date: 09/15/23); Wound Check (sacrum & neph tube site. ); Home Care; Concerns (Feels like catheter is falling out - pt states that it is leaking. ) 09/20/2023 Travel 09/15/2023 Transcribe Orders [facility] [address] [place] [address] Provider, Non-Excellian 09/13/2023 Telephone [facility] [address] [place] [address] Cesar Mccollum MD Procedure (social welfare research worker) 08/31/2023 Transcribe Orders [address] [address] Senthil Alvarez MD 08/30/2023 Orders Only [facility] Scanner 1 scan: (1-Ord) [facility], 08/30/2023 08/23/2023 Transcribe Orders [address] [address] Provider, Non-Excellian 08/13/2023 Orders Only [facility] Scanner 1 scan: (1-Ord) [facility], ABDOMEN/PELVIS W/O, 08/13/2023 08/04/2023 11:30 AM CDT Office Visit [facility] [address] [place] [address] Sandip Garcia, AuD Hearing Aid 08/04/2023 Travel 08/02/2023 2:30 PM CDT Orders Only [facility] [address] [place] [address] Lab, [facility] 08/02/2023 Travel 08/02/2023 Orders Only [facility] [address] [place] [address] Cesar Mcocllum MD <No scans attached> from Last 3 Months Immunizations Name Administration Dates Next Due COVID-19 Vaccine Spikevax (M oderna 50mcg/0.5mL) 12YO+ [id number] Formula PF 07/21/2023,03/08/2023 COVID-19 vaccine (In[email or web address] NTech 30mcg/0.3mL) 12YO+ BIVALENT PF, MDV 09/13/2022,01/28/2022 COVID-19 vaccine (In[employer] NTech 30mcg/0.3mL) 12YO+ DAYRON-SUCROSE PF, MDV 08/26/2021 COVID-19 vaccine (In[employer] NTech 30mcg/0.3mL) PF, MDV 01/13/2021,06/17/2020,2020 Influenza, Inactivated [...] Sign Reading Time Taken Comments Blood Pressure 105/60 10/24/2023 12:00 AM CDT Pulse 76 10/21/2023 12:05 PM CDT Temperature 36.1 ??C (96.9 ??F) 10/21/2023 12:05 PM C DT Respiratory Rate 15 10/21/2023 12:05 PM CDT Oxygen Saturation 97% 10/21/2023 12:05 PM CDT Inhaled Oxygen Concentration - - Weight 80.4 kg (177 lb 3.2 oz) 10/20/2023 10:38 AM CDT Height 177.1 cm (5' 9.72) 07/21/2023 9:05 AM CD T Body Mass Index 25.63 07/21/2023 9:05 AM CDT Plan of Treatment Upcoming Encounters Date Type Department Care Team (Late st Contact Info) Description 10/31/2023 2:30 AM CDT Home Care Visit [address] [address] Liz Fang, [facility] [address], [address] [place] [address] 10/31/2023 11:00 AM CDT Home Care Visit [address] [address] Doreen Hussein RN [address] [place] [address] 11/07/2023 4:00 AM CDT Home Care Visit [address] [address] Doreen Hussein RN [address] [place] [address] 11/14/2023 4:00 AM CDT Home Care Visit [address] [address] Doreen Hussein RN [address] [place] [address] 11/21/2023 4:00 AM CDT Home Care Visit [address] [address] Doreen Hussein, JAMEL [address] [place] [address] 11/23/2023 2:05 PM CDT Office Visit [facility] [address] [place] [address] Cesar Mccollum MD [address] [place] [address] 11/28/2023 4:00 AM CDT Home Care Visit [address] [address] Doreen Hussein RN [address] [place] [address] Health Maintenance Due Date Last Done Comments [...] 09/07/2016 Pneumococcal series for age 65+ Completed 04/11/202 4 Medical Devices Implanted Type [employer] Counsel[employer] Device Identifier Shelf Expiration Date Model / Serial / Lot Stent Uret [id number] Contour - [id number] Implanted:Qty: 1 on 07/18/2023 by Nicola Ware MD at [facility] Right: Ureter [facility] 02/27/2026 [id number] / / [id number] Procedures Procedure Name Priority Date/Time Associated Diagnosis Comments ECHO TTE COMPLETE WO CONTRAST DEBBI 10/06/2023 1:34 PM CDT Coronary artery disease, unspecified vessel or lesion type, unspecified whether angina present, unspecified whether bridge[place] or transplanted heart EKG 12 LEAD Routine 10/04/2023 2:15 PM CDT Coronary artery disease, unspecified vessel or lesion type, unspecified whether angina present, unspecified whether [place] or transplanted heart OR READING EKG - NO CHARGE, COMP ONLY [...] bone (HC) Nephrostomy status (HC) SCAN-ULTRASOUND REPORT 12:00 AM CDT SCAN-CT INTERPRETATION 12:00 AM CDT HEMOGLOBIN Routine 08/02/2023 2:26 [...] CDT ECHOCARDIOGRAM SHYAM SANDS ? Accession#: ?? [id number] : ?1940 83 years Study Date: ?? 10/06/2023 12:59:18 PM Gender: M ?BP: ? 131/72 mmHg Height: 175.26 cm ?BSA: ?1.98 m? ? ? Weight: 81.65 kg ? Tech: ? MBF ? Referring MD: SOULEYMANE MILLER Site: ? [facility] Reading Location: Mobile OP Patient Location: Outpatient. [...] . This study was interpreted by an [facility] accredited facility. ??Final ?? Procedure Note Manav Feliciano MD - 10/06/2023 ECHOCARDIOGRAM SHYAM SANDS : 1940 83 years Study Date: 10/06/2023 12:59:18 PM Gender: M BP: 131/72 mmHg Height: 175.26 cm BSA: 1.98 m? ? ? Weight: 81.65 kg Tech: CONSTANZA Referring MD: SOULEYMANE MILLER Site: [facility] Reading Location: Mobile OP Patient Location: Outpatient. [...] . This study was interpreted by an [facility] accredited facility. Final Souleymane Miller MD ECHO ORD * EKG 12 LEAD (10/04/2023 2:15 PM CDT) Souleymane Miller MD EKG ORD * OR READING EKG - NO CHARGE, COMP ONLY (10/04/2023 2:14 PM CDT) Souleymane Miller MD PB - PROVIDER READ INGS * (ABNORMAL) CBC WITH AUTO DIFFERENTIAL (09/22/2023 10:39 AM CDT) Only the most recent of2 resultswithin the time period is included. WHITE BLOOD COUNT 11.0 4.5 - 11.0 thou/cu mm 09/22/2023 10:46 AM CDT [facility] RED BLOOD COUNT 2.81(L) 4.30 - 5.90 mil/cu mm 09/22/2023 10:46 AM CDT [facility] HEMOGLOBIN 8.0(L) 13.5 - 17.5 g/dL 09/22/2023 10:46 AM CDT [facility] HEMATOCRIT 25.2(L) 37.0 - 53.0 % 09/22/2023 10:46 AM CDT [facility] MCV 90 80 - 100 fL 09/22/2023 10:46 AM CDT [facility] MCH 28.5 26.0 - 34.0 pg 09/22/2023 10:46 AM CDT [facility] MCHC 31.7(L) 32.0 - 36.0 g/dL 09/22/2023 10:46 AM CDT [facility] RDW 17.5(H) 11.5 - 15.5 % 09/22/2023 10:46 AM CDT [facility] PLATELET COUNT 466(H) 140 - 440 thou/cu mm 09/22/2023 10:46 AM CDT [facility] MPV 8.9 6.5 - 11.0 fL 09/22/2023 10:46 AM CDT [facility] % NEUT 86.3 % 09/22/2023 10:46 AM CDT [facility] % LYMPH 6.6 % 09/22/2023 10:46 AM CDT [facility] % MONO 5.8 % 09/22/2023 10:46 AM CDT [facility] % EOS 1.2 % 09/22/2023 10:46 AM CDT [facility] % BASO 0.1 % 09/22/2023 10:46 AM CDT [facility] ABSOLUTE NEUTROPHILS 9.5(H) 1.7 - 7.0 thou/cu mm 09/22/2023 10:46 AM CDT [facility] ABSOLUTE LYMPHOCYTES 0.7(L) 0.9 - 2.9 thou/cu mm 09/22/2023 10:46 AM CDT [facility] ABSOLUTE MONOCYTES 0.6 <0.9 thou/cu mm 09/22/2023 10:46 AM CDT [facility] ABSOLUTE EOSINOPHILS 0.1 <0.5 thou/cu mm 09/22/2023 10:46 AM CDT [facility] ABSOLUTE BASOPHILS 0.0 <0.3 thou/cu mm 09/22/2023 10:46 AM CDT [facility] Blood BLOOD SPECIMEN / Unknown Venipuncture / Unknown 09/22/2023 10:39 AM CDT 09/22/2023 10:43 AM CDT Letty Mera MD HEMATOLOGY [facility] [address] [place] [address], [place] [phone] * (ABNORMAL) URINE CULTURE (09/21/2023 4:40 PM CDT) Only the most recent of2 resultswithin the time period is included. CULTURE RESULT(A) 09/24/2023 9:54 AM CDT [facility] TRAL LABORATORY CULTURE >100,000 CFU/mL Shirin albicans 09/24/2023 9:54 AM CDT [facility] TR[facility] LABOR[facility]ORY Urine URINE SPECIMEN / Unknown Non-Blood / Unknown 09/21/2023 4:40 PM CDT 09/21/2023 4:41 PM CDT Letty Mera MD MICROBIOLO GY [facility] [address] 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
== END 2023-10-28 12:32 | disposition home or self-care (01) ==
LOC: WOUND 12:31
PROVIDERS: PCP Family Medicine; Visit Provider Nurse Practitioner Family
DX: N30.41 Irradiation cystitis with hematuria (principal); L89.153 Pressure ulcer of sacral region, stage 3; D64.9 Anemia, unspecified; Z79.01 Long term (current) use of anticoagulants
CPT/HCPCS: 11042; 87070; G0277

== ENCOUNTER 2023-11-04 12:26 | Outpatient (CLI) | payer MEDICARE, OTHER, SELFPAY ==
--- OUTSIDE RECORDS SUMMARY | 2023-11-04 12:28 | XMS_ITS | Referral Summary ---
Author Organization [facility] Address [address] [place] [id number] Care Team Providers Care Java Systems Analyst Name Role Phone Cesar Mccollum Primary Care Provider [phone] Allergies No known active allergies Medications Medication [...] on file Medical Devices Implanted Type Area Apiculture Teacher Device Identifier Shelf Expiration Date Model / Serial / Lot Stent Ureteral Polaris Ultra [id number] - [id number] Implanted:Qty : 1 on 02/08/2022 by Nicola Ware MD at [facility] Stent Right: [employer]ter [employer] [id number] 10/08/2024 [id number] Explanted Type Area Apiculture Teacher Device Identifier Shelf Expiration Date Model / Serial / Lot Stent Came Out Of The Right Ureter Explanted:Qty: 1 on 02/08/2022 by Nicola Ware MD at [facility] Right: Urethra Advance Directives For more information, please contact: [phone] Documents on File Type Date Recorded 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
--- OUTSIDE RECORDS SUMMARY | 2023-11-04 12:28 | XMS_ITS | Clinical Summary ---
Author Organization [facility] Address [address] [place] [id number] Care Team Providers Care Service Desk Technician Name Role Phone Cesar Mccollum Primary Care Provider [phone] Allergies No known active allergies Medications Medication [...] this topic Medical Devices Implanted Type Area Organizational Effectiveness Consultant Device Identifier Shelf Expiration Date Model / Serial / Lot Stent Ureteral Polaris Ultra [id number] - [id number] Implanted:Qty : 1 on 02/08/2022 by Nicola Ware MD at [facility] Stent Right: [employer] [id number] 10/08/2024 [id number] Explanted Type Area Organizational Effectiveness Consultant Device Identifier Shelf Expiration Date Model / Serial / Lot Stent Came Out Of The Right Ureter Explanted:Qty: 1 on 02/08/2022 by Nicola Ware MD at [facility] Right: Urethra Advance Directives For more information, please contact: [phone] Documents on File Type Date Recorded Patient Mine Deputy Expl anation Advance Directives and Living Will 02/17/2022 Health Care Directiv e 05/15/2021 Healthcare Agents on File Name Relationship Healthcare Agent Relationship Communication Mindy Waterman Daughter Co-First Alterna te Health Care Agent eMera Vega Spouse Health Care Agent [phone] (Home) Favio Vega Son Co-First Evangelina brock Health Care Agent Terseo Vega Son Co-First Fidencio dalton Health Care Agent Care Teams Service Desk Technician Relationship Specialty Start Date End Date Cesar Mccollum [address] [place] [address] PCP - General Family Medicine 11/22/22
--- OUTSIDE RECORDS SUMMARY | 2023-11-04 12:29 | XMS_ITS | Clinical Summary ---
Author Organization [facility] Address [address] [place] [address] Care Team Providers Care Presentation Specialist Name Role Phone Elsewhere, Pcp Primary Care Provider Unavailabl e Source Comments Patient records contain information from all sites at [facility]. For routine questions regarding patient records, call [phone] during business hours, M-F 8:00 AM - 5:00 PM Central Time. Record requests for emergency care only can be directed to [phone] at any time.[facility] Allergies No known active allergies [...] 10/27/2023 Clinical Communication Department of Urology in [place], [place] [address] [place] [address] Burke Strauss M.D. 10/14/2023 1:00 PM CDT Procedure visit Department of Urology in [place], [place] [address] [place] [address] Paula Hernandez M.D. Reichmann, Lynne G, R.N. Hematuria 10/14/2023 Documentation Department of Urology in [place], [place] [address] [place] [phone] Paula Hernandez M.D. Catheter Care Plan 09/27/2023 Clinical Communication Department of Urology in [place], [place] [address] [place] [phone] Paula Hernandez M.D. 09/21/2023 Clinical Communication Department of Urology in [place], [place] [address] [place] [phone] Paula Hernandez M.D. 09/16/2023 Clinical Communication Department of Urology in [place], [place] [address] [place] [phone] Provider, Unknown follow up questions 09/16/2023 Orders Only Department of Urology in [address] [phone] Paula Hernandez M.D. Hematuria Gross (Primary Dx) 09/15/2023 Clinical Communication [facility] [address] [place] [phone] Yasmine Loco 09/09/2023 12:10 PM CDT Ancillary Procedure Department of Nursing 09/09/2023 7:24 AM CDT - 09/15/2023 5:28 PM CDT Hospital Encounter [facility], [facility], Sixth Floor [address] [place] [phone] Gerri Merrill M.D., Ph.D. Sumit Holbrook M.D. Hematuria (Primary Dx) Discharge Disposition: Home or Self Care 09/09/2023 Documentation Department of Urology in [place], [place] [address] [place] [phone] Ko Victoria M.D. 09/06/2023 Orders Only Section of Hyperbaric Medicine in [address] [phone] Kira Ferraro APRN, C.N.P., M.S.N. 09/06/2023 Clinical Communication [facility] [address] [phone] Yasmine Loco 09/01/2023 10:05 AM CDT Ancillary Procedure Department of Nursing 08/31/2023 12:36 PM CDT - 08/31/2023 2:31 PM CDT Surgery [facility] [address] [place] [phone] Mayur Alvarez M.D. CYSTOSCOPY EVACUATION CLOTS 08/31/2023 12:34 PM CDT Anesthesia Event [facility] [address] [place] [phone] Joe Stoll M.D. Gran, Terry L, APRN, CRNA 08/31/2023 12:25 PM CDT Ancillary Procedure Department of General Surgery 08/30/2023 7:35 PM CDT - 09/05/2023 4:09 PM CDT Hospital Encounter [facility], [facility], [facility], First Floor [address] [place] [phone] Kirstin Hughes M.D. Thompson, R. Houston, M.D. Hematuria (Primary Dx); Tachycardia; Hematuria Gross Discharge Disposition: Home-Health Care [facility] 08/30/2023 Documentation Department of Urology in [place], [place] [address] [place] [phone] Corin Ring M.D. 08/30/2023 Intake [facility] 08/26/2023 Orders Only Department of Urology in [place], [place] [address] [place] [phone] Paula Hernandez M.D. 08/23/2023 12:45 AM CDT Ancillary Procedure Department of Nursing 08/15/2023 8:30 AM CDT Anesthesia Event [facility] [address] [place] [phone] Hayde Song M.D. 08/15/2023 7:55 AM CDT - 08/15/2023 11:23 AM CDT Surgery [facility] [address] [place] [phone] Boubacar Brock M.D. Palliative EXPLORATORY LAPAROTOMY, CYSTOTOMY CLOSURE, RIGHT URETERAL STENT EXCHANGE 08/13/2023 4:35 PM CDT Ancillary Procedure Department of Radiology in [place], [place] [address] [place] [address] Carlos Alberto Henson M.D. 08/13/2023 3:42 PM CDT - 08/26/2023 4:11 PM CDT Hospital Encounter [facility], [facility], Sixth Floor [address] [place] [phone] Darnell Garcia M.D. Chow, George K, M.D. [...] Recorded In the past 12 months has [facility] [employer], gas, oil, or water [employer] threatened to shut off services in your [...] a [facility] to live 09/09/2023 Sex [...] CDT Office Visit Department of Urology in [place], [place] [address] [place] [address] Burke Strauss M.D. [address] [place] [phone] Discharge Disposition: Home or Self Care Health [...] 07/21/19 24 Medical Devices Implanted Type Area Hydro Plant Technician Device Identifier Shelf Expiration Date Model / Serial / Lot Clp Hrzn Ti 6 Clp Lg Orng - [id number] Implanted:Qt y: 1 on 08/15/2023 by Boubacar Brock M.D. at [facility] Hardware e.g. pins/screws /rods Abdomen [employer] [id number] 02/29/2028 [id number] / / [id number] Clp Hrzn Ti 6 Clp Lg Orng - [id number] Implanted:Qt y: 1 on 08/15/2023 by Boubacar Brock M.D. at [facility] Hardware e.g. pins/screws /rods Abdomen [employer] [id number] 02/29/2028 [id number] / / [id number] Clp Hrzn Ti 6 Clp Md Monty - [id number] Implanted:Qt y: 1 on 08/15/2023 by Boubacar Brock M.D. at [facility] Hardware e.g. pins/screws /rods Abdomen [employer] [id number] 03/13/2028 [id number] / / [id number] Clp Hrzn Ti 6 Clp Md Monty - [id number] Implanted:Qt y: 1 on 08/15/2023 by Boubacar Brock M.D. at [facility] Hardware e.g. pins/screws /rods Abdomen [employer] [id number] 03/21/2028 [id number] / / [id number] Stnt Uret Inl 6fx24 - [id number] Implanted:Qt y: 1 on 08/15/2023 by Jakob De Paz M.D. at [facility] Ureteral Stent N/A: Ureter [employer] [id number] 11/18/2027 [id number] / / [id number] Procedures Procedure Name Priority Date/Time Associated Diagnosis [...] CDT Paula Hernandez M.D. LAB BLOOD ADD-ON [address] [address], [address] [address] * Heparin Anti-Xa Assay (09/14/2023 3:19 AM [...] [facility] [address] [place] [address], [facility] [address] [place] [address] * IR Nephrostomy Tube Placement Left (09/13/2023 2:20 PM CDT) Anatomical Region Laterality Modality Genito Urinary, Vascular Int erventional RST LOS, Vascular Interventional ARZ LOS, Vascular Interventional FLA LOS Left X-Ray Angiography Impressions 09/13/2023 2:33 PM CDT Left 10 Ukrainian percutaneous nephrostomy tube placement. EP Narrative 09/13/2023 [...] tract was further dilated and a 10 Ukrainian nephrostomy tube was placed with loop formed [...] sedation timewas: 9 minutes. IMPRESSION: Left 10 Ukrainian percutaneous nephrostomy tube placement. EP Latisha Whitehead [...] MICROBIOLOGY - GENERAL ORDERABLES Performing Organization Address City/[facility]/ZIP Co de Phone Number [facility] [place] [address] [place] [address], [facility] [address] [place] [address] * Gram Stain (09/13/2023 2:17 PM CDT) Gram Stain No organisms seen. White blood cells, Rare 09/13/2023 9:02 PM CDT DTL Fluid (Kidney, Left) 09/13/2023 2:17 PM CDT 09/13/2023 3:56 PM CDT Comment:Specimen Source Site : Fluid Latisha Whitehead M.D. LAB MICROBIOLOGY - GENERAL ORDERABLES [facility] [place] [address] [place] [address], [facility] [address] [place] [address] * Fungal Culture, Routine (09/13/2023 2:17 PM CDT) Fungal Culture, Routine No growth after 24 days of incubation. 10/08/2023 1:02 AM CDT DTL Fluid (Kidney, Left) 09/13/2023 2:17 PM CDT 09/13/2023 3:56 PM CDT Comment:Specimen Source Site : Fluid Latisha Whitehead M.D. LAB MICROBIOLOGY - GENERAL ORDERABLES Performing Organization Address [facility] Co de Phone Number [facility] [place] [address] [place] [address] * Bacterial Culture, Anaerobic + Susceptibility (09/13/2023 2:17 PM CDT) Bacterial Culture, Anaerobic + Susc No growth after 14 days of incubation. 09/27/2023 8:04 AM CDT DTL Fluid (Kidney, Left) 09/13/2023 2:17 PM CDT 09/13/2023 3:56 PM CDT Comment:Specimen Source Site : Fluid Latisha Whitehead M.D. LAB MICROBIOLOGY - GENERAL ORDERABLES Performing Organization Address [facility] Co de Phone Number [facility] [place] [address] [place], [place] [address] [place] [address] 200 [place] [address] * APTT (Activated Partial Thromboplastin Time) (09/13/2023 5:56 AM CDT) Only the most recent of18 resultswithin the time period is included. Activated Partial Thrombopl Time, P 35 25 - 37 sec 09/13/2023 7:14 AM CDT DTL Blood (Blood, Venous) 09/13/2023 5:56 AM CDT 09/13/2023 6:53 AM CDT Sumit Holbrook M.D. LAB BLOOD ADD-ON Performing Organization Address City/[facility] Co de Phone Number [facility] [place] 200 [place] [address], [facility] DTL [facility] 200 [place] [address] * (ABNORMAL) Basic Metabolic Panel (09/13/2023 5:56 AM CDT) Only the most recent of14 resultswithin the time period is included. Pathologist [facility] Potassium, S 3.7 [...] CENTER, [place] 200 [place] [address], [facility] DTL [facility] 200 [place] [address] * NM Kidney DMSA (09/12/2023 12:21 PM [...] LAB URINE ORDERA BLES Performing Organization Address City/[facility] Co de Phone Number [facility] [place] [address] [place], [place] [address] [place] [address] 200 [place] [address] * (ABNORMAL) Dipstick, Urine (09/09/2023 11:28 AM [...] [place] [address] [place] [address], [facility] [address] [place] [address] * pH, Random, Urine (09/09/2023 11:28 AM CDT) Only the most recent of2 resultswithin the time period is included. pH, Random, U 6.3 4.5 - 8.0 09/09/2023 12:19 PM CDT DTL Urine 09/09/2023 11:2 8 AM CDT 09/09/2023 11:58 AM CDT Jeffery Church M.D. LAB URINE ORDERA BLEBryon [facility] [place] [address] [place] [address], [facility] [address] [place] [address] * (ABNORMAL) Microscopic Manual (09/09/2023 11:28 AM CDT) Only the most recent of2 resultswithin the time period is included. Pathologist [facility] Microscopy Abnormal 09/09/2023 12:37 PM CDT DTL [...] [place] [address] [place] [address], [facility] [address] [place] [address] * (ABNORMAL) Bacterial Culture, Aerobic + Susceptibility, Urine (09/09/2023 11:28 AM CDT) Only the most recent of3 resultswithin the time period is included. Pathologist [facility] Urine Culture ENTEROBACTER CLOACAE COMPLEX >100,000 cfu/mL [...] MICROBIOLOGY - GENERAL ORDERABLES Performing Organization Address [facility] Co de Phone Number [facility] [place] 200 [place] [address] * (ABNORMAL) Gram Stain, Urine (09/09/2023 11:28 AM CDT) Source Urine, Urine, Straight Catheter 09/09/2023 11:58 AM CDT DTL Gram Stain, U Positive(A) Negative 09/09/2023 12:16 PM CDT DTL Comment: Few Gram-negative bacilli ? Yeast Urine 09/09/2023 11:2 8 AM CDT 09/09/2023 11:58 AM CDT Jeffery Church M.D. LAB URINE ORDERA BLES Performing Organization Address [facility] Co de Phone Number [facility] [place] 200 [place] [address] * (ABNORMAL) Urinalysis, with Microscopic: Urine, Straight [...] 09/09/2023 1:02 PM CDT DTL Predicted Range 2480-48937 mg/24 h 09/09/2023 1:02 PM CDT DTL Comment Micro done on <2.5 mL 09/09/2023 12:27 PM CDT DTL Urine (Urine, Straight Catheter) 09/09/2023 11:28 AM CDT 09/09/2023 11:58 AM CDT Jeffery Church M.D. LAB URINE ORDERA BLES [facility] [place] [address] [place] [address], [facility] DTL [facility] [address] [place] [address] * [place] Kidneys Bilateral with Bladder (09/09/2023 [...] - 12.5 sec 09/09/2023 8:[address] [facility] INR 1.1 0.9 - 1.1 09/09/2023 8:[address] [facility] Comment: ----ADDITIONAL INFORMATION---- Standard intensity warfarin therapeutic range: 2.0 to 3.0 ?? High intensity warfarin therapeutic range: 2.5 to 3.5 Blood (Blood, Venous) 09/09/2023 8:04 AM CDT 09/09/2023 8:08 AM CDT Jeffery Church M.D. LAB BLOOD ADD-ON [facility] [place] [address] [place] [address], [facility] [address] [place] [address] * (ABNORMAL) CBC with Differential, Blood (09/09/2023 8:04 AM CDT) Only the most recent of7 resultswithin the time period is included. [facility] Hemoglobin 8.9(L) 13.2 - 16.6 g/dL [...] [facility] [address] [place] [address], [facility] STMA [facility] 200 [place] [address] [facility] 200 [place] [address] * Type and Screen (with Reflex Antibody ID) (09/09/2023 8:03 AM CDT) Only the most recent of6 resultswithin the time period is included. [facility] ABORh O Pos Not applicable 09/09/2023 8:47 [...] CENTER, [place] 200 [place], [place] [address] 200 [place] [address] * Potassium (09/05/2023 4:56 AM CDT) Only the most recent of2 resultswithin the time period is included. [facility] Potassium, S 3.6 3.6 - 5.2 mmol/L 09/05/2023 5:49 AM CDT DTL Blood (Blood, Venous) 09/05/2023 4:56 AM CDT 09/05/2023 5:22 AM CDT Roxy Romero M.D. LAB BLOOD ADD-ON [facility] [place] [address] [place] [address], [facility] DTL [facility] [address] [place] [address] * [place] Fluoro Less Than 1 Hour [...] APRN, CRNA - 08/31/2023 12:43 PM CDT Benjmain Williamson APRN, CRNA ? 08/31/2023 12:55 PM [...] [place] [address] [place] [address] * Lactate (08/30/2023 9:50 PM CDT) Pathologist [facility] Lactate, P 1.8 0.5 - 2.2 mmol/L 08/30/2023 10:[address] [facility] Blood (Blood, Venous) 08/30/2023 9:50 PM CDT 08/30/2023 9:55 PM CDT Shannan Correa D.O., M.H.A. LAB BLOOD NON ADD-ON [facility] [place] [address] [place] [address] * DX Chest AP or PA and [...] MUSE QTC Interval 403 ms MUSE P [place] 44 degrees MUSE R [place] 9 degrees MUSE T Wave [place] -76 degrees MUSE 08/30/2023 7:44 PM CDT [...] [facility]/ZIP Co de Phone Number [facility] [place] 200 [place] [address], [facility] 200 [place] [address] * Magnesium (08/26/2023 3:20 AM CDT) Only the most recent of6 resultswithin the time period is included. Magnesium, S 2.1 1.7 - 2.3 mg/dL 08/26/2023 4:04 AM CDT DT Blood (Blood, Venous) 08/26/2023 3:20 AM CDT 08/26/2023 3:50 AM CDT Boubacar Brock M.D. LAB BLOOD ADD-ON Performing Organization Address [facility] Co de Phone Number [facility] [place] [address] [place] [address], [facility] 200 [place] [address] * (ABNORMAL) Phosphorus Inorganic (08/23/2023 9:58 PM CDT) Only the most recent of2 resultswithin the time period is included. Phosphorus (Inorganic), S 2.1(L) 2.5 - 4.5 mg/dL 08/23/2023 10:45 PM CDT DTL Blood (Blood, Venous) 08/23/2023 9:58 PM CDT 08/23/2023 10:30 PM CDT Paula Hernandez M.D. LAB BLOOD ADD-ON Performing Organization Address City/[facility] Co de Phone Number [facility] [place] [address] [place] [address], [facility] 200 [place] [address] * Triglycerides (08/23/2023 3:42 AM CDT) Only [...] [facility]/ZIP Co de Phone Number [facility] [place] 200 [place] [address], [facility]TF[facility] 200 [place] [address] * Glucose, POCT (08/22/2023 11:38 PM CDT) Glucose, POCT, B 117 70 - 140 mg/dL 08/23/2023 1:06 AM CDT PCLX Site Capillary 08/23/2023 1:06 AM CDT PCLX Last Intake NPO 08/23/2023 1:06 AM CDT PCLX Blood 08/22/2023 11:3 8 PM CDT 08/23/2023 1:06 AM CDT Unknown Provider LAB POCT ORDERABLES- MANUAL POC [facility] [address] [place] [address], [facility] PCLX [facility] POC [address] [place] [address] * CT Abdomen Pelvis without IV Contrast [...] transport rates. All other fluids refer to [email or web address] for further interpretive information. This test has been modified from the maintenance mechanic technician's instructions. Its performance characteristics were determined by [facility] in a manner consistent with CLIA requirements. This test has not been cleared or approved by the U.S. Food and Drug Administration. Fluid Type, Creatinine Fluid, Abdomen 08/22/2023 3:52 PM CDT DTL Fluid (Abdomen) 08/22/2023 3 :30 PM CDT 08/22/2023 6:36 PM CDT Corin Ring M.D. LAB BODY FLUIDS AND STOOLS ORDERABLES [facility] [address] [place] [address], [facility]TF[facility] [address] [place] [address] * IR PICC Line Placement (08/22/2023 8:35 AM CDT) Anatomical Region Laterality Modality Chest, Pelvis, Abdomen, Vasc ular Interventional RST LOS, Vascular Interventional ARZ LOS, Vascular Interventional FLA LOS N/A X-Ray Angiography Impressions 08/22/2023 9:05 AM CDT Placement of a right IJ vein single-lumen 4 Ukrainian tunneled PowerPICC ready for immediate use. NR [...] advanced into the IVC and a 4 Ukrainian dilator advanced over the wire and attached to a one-way stopcock. A suitable exit site in the right anterior chest was anesthetized and a small incision made. A 4 Ukrainian single-lumen PowerPICC was then tunneled from the [...] Wireadvanced into the IVC and a 4 Ukrainian dilator advanced over the wire andattached to a one-way stopcock. A suitable exit site in the right anteriorchest was anesthetized and a small incision made. A 4 Ukrainian single-lumen PowerPICC was then tunneled fromthe skin [...] of a right IJ vein single-lumen 4 Ukrainian tunneled PowerPICCready for immediate use. NR Kimi [...] BLOOD ADD-ON Performing Organization Address [facility] de Phone Number [facility] [place] [address] [place], [place] [address] [place] [address] DTL [facility] [address] [place] [address] * Place peripherally inserted central catheter (PICC) [...] M.D. PROCEDURE/MINOR SURGICAL ORDERABLES Performing Organization Address [facility] de Phone Number MMODAL NA * [...] the atrophic right kidney. Lizette Harvey M.D. [facility] CT PROCEDUR ES [...] and management can be found on the Access [employer] SolutionsExpert site. Link [email or web address] Findings discussed with ??Tayler Greenwood, ?? ([id number]) on 08/17/2023 7:11 PM. Procedure Note Jj [...] management can be found on theAskMayoExpert site. [email or web address] Findings discussed with Tayler Greenwood MD ([id number]) on 08/17/2023 7:11 PM. IMPRESSION: 1. Aging, [...] with tip andsidehole in stomach. Remainder negative. oBubacar Brock M.D. IMG DIAGNOSTIC IMAGI NG PROCEDURES * Lactate, B - Intra-op (08/15/2023 11:56 AM CDT) Only the most recent of2 resultswithin the time period is included. Lactate, B 1.1 0.5 - 2.2 mmol/L 08/15/2023 12:06 PM CDT [facility] Blood (Blood, Venous) 08/15/2023 11:56 AM CDT 08/15/2023 12:03 PM CDT Hayde Song M.D. LAB BLOOD NON ADD-O N [facility] [address] [place] [address], [facility] [address] [place] [address] * Patient Status (08/15/2023 11:56 AM CDT) Only the most recent of2 resultswithin the time period is included. Temperature 36.2 37.0 deg C 08/15/2023 12:04 PM CDT [facility] Blood 08/15/2023 11:5 6 AM CDT 08/15/2023 12:03 PM CDT Rae Gonzalez APRN, CRNA, DNAP LAB BLOO D NON ADD-ON Performing Organization Address City/[facility] Co de Phone Number [facility] [place] [address] [place] [address] * Sodium, B (08/15/2023 11:56 AM CDT) Only the most recent of2 resultswithin the time period is included. Sodium, B 135 135 - 145 mmol/L 08/15/2023 12:06 PM CDT [facility] Blood (Blood, Arterial Line) 08/15/2023 11:56 AM CDT 08/15/2023 12:03 PM CDT Hayde Song M.D. LAB BLOOD NON ADD-O N Performing Organization Address [facility] Co de Phone Number [facility] [place] [address] [place] [address] * (ABNORMAL) Blood Gas with Coox, Arterial [...] CENTER, [place] 200 [place] [address] * Potassium, Blood (08/15/2023 11:56 AM CDT) Only the most recent of2 resultswithin the time period is included. Potassium, B 4.3 3.6 - 5.2 mmol/L 08/15/2023 12:07 PM CDT [facility] Blood (Blood, Arterial Line) 08/15/2023 11:56 AM CDT 08/15/2023 12:03 PM CDT Hayde Song M.D. LAB BLOOD NON ADD-O N [facility] [place] [address] [place], [place] [address] [place] [address] 200 [place] [address] * (ABNORMAL) Glucose, Whole Blood (08/15/2023 11:56 AM CDT) Only the most recent of2 resultswithin the time period is included. Glucose 144(H) 70 - 140 mg/dL 08/15/2023 12:06 PM CDT [facility] Blood (Blood, Arterial Line) 08/15/2023 11:56 AM CDT 08/15/2023 12:03 PM CDT Hayde Song M.D. LAB BLOOD ADD-ON Performing Organization Address City/[facility]/ZIP Co de Phone Number [facility] [place] [address] [place] [address] * (ABNORMAL) Calcium, Ionized (08/15/2023 11:56 AM CDT) Only the most recent of2 resultswithin the time period is included. Calcium, Ionized, B 4.53(L) 4.65 - 5.30 mg/dL 08/15/2023 12:07 PM CDT ST[facility] Blood (Blood, Arterial Line) 08/15/2023 11:56 AM CDT 08/15/2023 12:03 PM CDT Hayde Song M.D. LAB BLOOD NON ADD-O N Performing Organization Address City/[facility] Co de Phone Number [facility] [place] [address] [place] [address] * [place] ARTL CATH/CNULA MONITOR [place], [place] US GUIDE VASC ACCESS, LDA ANE ARTERIAL LINE INSERTION, MC ANE INVASIVE CATH WITH ULTRASOUND (08/15/2023 9:51 AM CDT) Narrative Rae Gonzalez APRN, COPPERSMITH APPRENTICE, DNAP - 08/15/2023 9:51 AM CDT Rae Gonzalez APRN, COPPERSMITH APPRENTICE, DNAP ? 08/15/2023 ??9:52 AM Invasive [...] location: oral VL device: glide scope [place] scope blade size: 4 Tube size: 7.5 [...] period is included. Pathologist [facility] Bacteria/Leyla da Culture, [...] Carlos Alberto Henson M.D. LAB MICROBIOLOGY - [facility] ORDERABLES [facility] [place] [address] [place] [address], [facility] DTL [facility] [address] [place] [address] * (ABNORMAL) Hepatic Function Panel (08/13/2023 5:27 PM CDT) Pathologist [facility] Bilirubin, Total, S 0.8 0.0 [...] Henson M.D. LAB BLOOD ADD-ON [facility] [address] [place] [address], [facility] DTL [facility] [address] [place] [address] * Interpretation of Outside CT Abdomen and [...] CT Body (08/13/2023 4:35 AM CDT) Narrative [facility] - 08/13/2023 12:29 PM CDT This order [...] Advance Directives For more information, please contact: [phone] * Full Code (Latest Code Status on File) Date Activated Date Inactivated Comments 08/30/2023 10:40 PM 09/05/2023 6:15 PM Question Answer Comments Full Code: Not Discussed Due to: Patient not available * Full Code Date Activated Date Inactivated Comments 08/13/2023 4:30 PM 08/26/2023 6:58 PM Question Answer Comments Full Code: Discussed Care Teams Presentation Specialist Relationship Specialty Start Date End Date Elsewhere, Pcp PCP - General Internal Medicine 08/13/23
--- OUTSIDE RECORDS SUMMARY | 2023-11-04 12:30 | XMS_ITS | Encounter Summary ---
Author Organization [facility] Address [address] [place] [address] Care Team Providers Care Openstack Cloud Consulting Architect Name Role Phone Elsewhere, Pcp Primary Care Provider Unavailabl e Encounter Details Date Type Department Care Team (Late st Contact Info) Description 09/27/2023 Clinical Communication Department of Urology in [place], [place] [address] [place] [address] Paula Hernandez M.D. [address] [place] [address] Social History Tobacco Use Types Packs/Day Years Used Date Smoking Tobacco: Never Smokeless Tobacco: Never [facility] Utilities Answer Date Recorded In the past 12 months has [facility] [employer], gas, oil, or water [employer] threatened to shut off services in your [...] your living situation today? I have a [facility] place to live 09/09/2023 Sex [...] CDT Office Visit Department of Urology in [address] [address] Burke Strauss M.D. [address] [place] [address] Discharge Disposition: Home or Self Care documented as of this encounter Visit Diagnoses Not on filedocumented in this encounter Care Teams Openstack Cloud Consulting Architect Relationship Specialty Start Date End Date Elsewhere, Pcp PCP - General Internal Medicine 08/13/23 documented as of this encounter
--- OUTSIDE RECORDS SUMMARY | 2023-11-04 12:30 | XMS_ITS ---
Author Organization [facility] Address [address] [place] [address] Care Team Providers Care Autoclave Operator Name Role Phone Unavailable Unavailable Unavailable Surgery Details Not on file Complications Check Surgery Details section. Procedure Estimated Blood Loss Check Surgery Details section. Procedure Findings Check Surgery Details section. Procedure Specimens Taken Check Surgery Details section.
--- OUTSIDE RECORDS SUMMARY | 2023-11-04 12:30 | XMS_ITS | Encounter Summary ---
Author Organization [facility] Address [address] [place] [address] Care Team Providers Care Line Out Man Name Role Phone Elsewhere, Pcp Primary Care Provider Unavailabl e Encounter Details Date Type Department Care Team (Late st Contact Info) Description 09/21/2023 Clinical Communication Department of Urology in [place], [place] [address] [place] [address] Paula Hernandez M.D. [address] [place] [address] Social History Tobacco Use Types Packs/Day Years Used Date Smoking Tobacco: Never Smokeless Tobacco: Never [facility] Utilities Answer Date Recorded In the past 12 months has [facility] [employer], gas, oil, or water [employer] threatened to shut off services in your [...] 2:37 PM CDT I called the patient's [place] physician who he saw yesterday, 09/19 in [...] CDT Office Visit Department of Urology in [place], [place] [address] [place] [address] Burke Strauss M.D. [address] [place] [phone] Discharge Disposition: Home or Self Care documented as of this encounter Visit Diagnoses Not on filedocumented in this encounter Care Teams Line Out Man Relationship Specialty Start Date End Date Elsewhere, Pcp PCP - General Internal Medicine 08/13/23 documented as of this encounter
--- OUTSIDE RECORDS SUMMARY | 2023-11-04 12:30 | XMS_ITS | Encounter Summary ---
Author Organization [facility] Address [address] [place] [address] Care Team Providers Care Promotions Executive Producer Name Role Phone Elsewhere, Pcp Primary Care Provider Unavailabl e Encounter Details Date Type Department Care Team (Late st Contact Info) Description 10/27/2023 Clinical Communication Department of Urology in [place], [place] [address] [place] [phone] Burke Strauss M.D. [address] [place] [address] Social History Tobacco Use Types Packs/Day Years Used Date Smoking Tobacco: Never Smokeless Tobacco: Never [facility] Utilities Answer Date Recorded In the past 12 months has e electric, gas, oil, or water [employer] threatened to shut off services in your [...] encounter Miscellaneous Notes * Telephone Encounter - Gisela Lloyd R.MJonahAJonah - 10/28/2023 1:21 PM CDT Patient is already scheduled with Dr. Strauss to establish care. * Telephone Encounter - Burke Strauss M.D. - 10/27/2023 5:01 PM CDT Patient has nephrostomy tubes in and will ultimately need to see a surgeon for exchange, however, Iwould be happy to see him to help establish care. * Telephone Encounter - Tayler Zaragoza C.MParvin - 10/27/2023 2:15 PM CDT Patient follows urology in [place] but would like to transfer his care to [place] as it is closer to home. It looks like for Hematuria. Is this patient ok to see you? He has a catheter in and will need cath changes going forward. documented in this encounter Plan of Treatment Upcoming Encounters Date Type Department Care Team (Late st Contact Info) Description 11/09/2023 11:00 AM CDT Office Visit Department of Urology in [place], [place] [address] [place] [phone] Burke Strauss M.D. [facility] [place] [phone] Discharge Disposition: Home or Self Care documented as of this encounter Visit Diagnoses Not on filedocumented in this encounter Care Teams Promotions Executive Producer Relationship Specialty Start Date End Date Elsewhere, Pcp PCP - General Internal Medicine 08/13/23 documented as of this encounter
--- OUTSIDE RECORDS SUMMARY | 2023-11-04 12:30 | XMS_ITS | Encounter Summary ---
Author Organization [facility] Address [address] [place] [address] Care Team Providers Care Landscaping Crew Leader Name Role Phone Elsewhere, Pcp Primary Care Provider Unavailabl e Reason for Referral * Outpatient (Routine) - Authorized Specialty Diagnoses / Procedures Referred By Contac t Referred To Contact Diagnoses Hematuria Gross Procedures DX Chest AP or PA and Lateral 2 Views Paula Hernandez M.D. [address] [place] [address] [facility] Referral ID Status Reason Start Date Expiration Date V isits Requested Visits Authorized [id number] Authorized 09/16/2023 09/15/2024 1 1 Encounter Details Date Type Department Care Team (Late st Contact Info) Description 09/16/2023 Orders Only Department of Urology in [place], [place] [address] [place] [phone] Paula Hernandez M.D. [address] [place] [address] Hematuria Gross (Primary Dx) Social History Tobacco [...] living situation today? [facility] 09/09/2023 Sex and Gender Information Value Date Recorded Sex Assigned at Not on file Gender Identity Not on file Sexual Orientation Not on file documented as of this encounter Plan of Treatment Upcoming Encounters Date Type Department Care Team (Late st Contact Info) Description 11/09/2023 11:00 AM CDT Office Visit Department of Urology in [place], [place] [address] [place] [address] Burke Strauss M.D. [facility] [place] [phone] Discharge Disposition: Home or Self Care Scheduled [...] documented as of this encounter Care Teams Landscaping Crew Leader Relationship Specialty Start Date End Date Elsewhere, Pcp PCP - General Internal Medicine 08/13/23 documented as of this encounter
--- OUTSIDE RECORDS SUMMARY | 2023-11-04 12:30 | XMS_ITS | Referral Summary ---
Author Organization [facility] Address [address] [place] [address] Care Team Providers Care Tapper Operator Name Role Phone Elsewhere, Pcp Primary Care Provider Unavailabl e Source Comments Patient records contain information from all sites at [facility]. For routine questions regarding patient records, call [phone] during business hours, M-F 8:00 AM - 5:00 PM Central Time. Record requests for emergency care only can be directed to [phone] at any time.[facility] Encounters Date Type Department Care Team Description 10/27/2023 Clinical Communication Department of Urology in [place], [place] [address] [place] [address] Burke Strauss M.D. 10/14/2023 Documentation Department of Urology in [place], [place] [address] [place] [address] Paula Hernandez M.D. Catheter Care Plan 10/14/2023 1:00 PM CDT Procedure visit Department of Urology in [place], [place] [address] [place] [address] Paula Hernandez M.D. Khadra Miller, R.N. Hematuria 09/27/2023 Clinical Communication Department of Urology in [place], [place] [address] [place] [phone] Paula Hernandez M.D. 09/21/2023 Clinical Communication Department of Urology in [place], [place] [address] [place] [phone] Paula Hernandez M.D. 09/16/2023 Clinical Communication Department of Urology in [place], [place] [address] [place] [phone] Provider, Unknown follow up questions 09/16/2023 Orders Only Department of Urology in [place], [place] [address] [place] [phone] Paula Hernandez M.D. Hematuria Gross (Primary Dx) 09/15/2023 Clinical Communication [facility] [address] [place] [phone] Yasmine Loco 09/09/2023 7:24 AM CDT - 09/15/2023 5:28 PM CDT Hospital Encounter [facility], Sixth Floor [address] [place] [phone] Gerri Merrill M.D., Ph.D. Sumit Holbrook M.D. Hematuria (Primary Dx) Discharge Disposition: Home or Self Care 09/09/2023 12:10 PM CDT Ancillary Procedure Department of Nursing 09/09/2023 Documentation Department of Urology in [place], [place] [address] [place] [phone] Ko Victoria M.D. 09/06/2023 Orders Only Section of Hyperbaric Medicine in [place], [place] [address] [place] [phone] Kira Ferraro APRN, C.N.P., M.S.N. 09/06/2023 Clinical Communication RST [facility] [address] [place] [phone] Yasmine Loco 08/30/2023 7:35 PM CDT - 09/05/2023 4:09 PM CDT Hospital Encounter [facility], First Floor [address] [place] [phone] Kirstin Hughes M.D. Thompson, R. Houston, M.D. Hematuria (Primary Dx); Tachycardia; Hematuria Gross Discharge Disposition: Home-Health Care [facility] 09/01/2023 10:05 AM CDT Ancillary Procedure Department of Nursing 08/31/2023 12:25 PM CDT Ancillary Procedure Department of General Surgery 08/31/2023 12:34 PM CDT Anesthesia Event [facility] [address] [place] [phone] Joe Stoll M.D. Gran, Terry L, APRN, GAVIN 08/31/2023 12:36 PM CDT - 08/31/2023 2:31 PM CDT Surgery [facility] [address] [place] [phone] Mayur Alvarez M.D. CYSTOSCOPY EVACUATION CLOTS 08/30/2023 Documentation Department of Urology in [place], [place] [address] [place] [phone] Corin Ring M.D. 08/30/2023 Intake [facility] 08/26/2023 Orders Only Department of Urology in [address] [phone] Paula Hernandez M.D. 08/13/2023 3:42 PM CDT - 08/26/2023 4:11 PM CDT Hospital Encounter [facility], Sixth Floor [address] [place] [phone] Darnell Garcia M.D. Chow, George K, M.D. Decline Functional Status [R53.81] (Primary Dx); Hematuria [R31.9] Discharge Disposition: Home or Self Care 08/23/2023 12:45 AM CDT Ancillary Procedure Department of Nursing 08/15/2023 8:30 AM CDT Anesthesia Event [facility] OR [address] [place] [phone] Hayde Song M.D. 08/15/2023 7:55 AM CDT - 08/15/2023 11:23 AM CDT Surgery [facility] [address] [place] [address] Boubacar Brock M.D. Palliative EXPLORATORY LAPAROTOMY, CYSTOTOMY CLOSURE, RIGHT URETERAL STENT EXCHANGE 08/13/2023 4:35 PM CDT Ancillary Procedure Department of Radiology in [place], [place] [address] [place] [address] Carlos Alberto Henson M.D. 08/13/2023 Intake RST [...] Tobacco: Never Tobacco Cessation:Counseling Given: Not Answered [facility] Utilities Answer Date Recorded In the past [address] [facility] [employer], gas, oil, or water [employer] threatened to shut off services in your [...] [facility] place to live 09/09/2023 Sex and [...] CDT Office Visit Department of Urology in [place], [place] [address] [place] [address] Burke Strauss M.D. [address] [place] [phone] Discharge Disposition: Home or Self Care Medical Devices Implanted Type Area Home Theatre Technician Device Identifier Shelf Expiration Date Model / Serial / Lot Clp Hrzn Ti 6 Clp Lg Orng - [id number] Implanted:Qt y: 1 on 08/15/2023 by Boubacar Brock M.D. at [facility] Hardware e.g. pins/screws /rods [employer]dom[employer] [id number] 02/29/2028 [id number] / / [id number] Clp Hrzn Ti 6 Clp Lg Orng - [id number] Implanted:Qt y: 1 on 08/15/2023 by Boubacar Brock M.D. at [facility] Hardware e.g. pins/screws /rods [employer]dom[employer] [id number] 02/29/2028 [id number] / / [id number] Clp Hrzn Ti 6 Clp Md Monty - [id number] Implanted:Qt y: 1 on 08/15/2023 by Boubacar Brock M.D. at [facility] Hardware e.g. pins/screws /rods [employer]dom[employer] [id number] 03/13/2028 [id number] / / [id number] Clp Hrzn Ti 6 Clp Md Monty - [id number] Implanted:Qt y: 1 on 08/15/2023 by Boubacar Brock M.D. at [facility] Hardware e.g. pins/screws /rods [employer]dom[employer] [id number] 03/21/2028 [id number] / / [id number] Stnt Uret Inl 6fx24 - [id number] Implanted:Qt y: 1 on 08/15/2023 by Jakob De Paz M.D. at [facility] Ureteral Stent N/A: Ureter [employer] [id number] 11/18/2027 [id number] / / [id number] Procedures Procedure Name Priority Date/Time Associated Diagnosis [...] LINE INSERTION Routine 08/15/2023 9:51 AM CDT IL US GUIDE VASC ACCESS Routine 08/15/2023 9:51 AM CDT IL ARTL CATH/CNULA MONITOR PERC Routine 08/15/2023 9:51 [...] M.D. LAB BLOOD ADD-ON Performing Organization Address [facility]/ZIP Co de Phone Number [facility] [address] [place], [place] [address] [place] [address] [place] [address] * Heparin Anti-Xa Assay (09/14/2023 3:19 AM [...] LAB BLOOD NON ADD-ON Performing Organization Address City/[facility]/ZIP Co de Phone Number [facility] [address] [place] [address], [facility] [address] [place] [address] * IR Nephrostomy Tube Placement Left (09/13/2023 2:20 PM CDT) Anatomical Region Laterality Modality Genito Urinary, Vascular Int erventional RST LOS, Vascular Interventional ARZ LOS, Vascular Interventional FLA LOS Left X-Ray Angiography Impressions 09/13/2023 2:33 PM CDT Left 10 Faroese percutaneous nephrostomy tube placement. EP Narrative 09/13/2023 [...] tract was further dilated and a 10 Faroese nephrostomy tube was placed with loop formed [...] sedation timewas: 9 minutes. IMPRESSION: Left 10 Faroese percutaneous nephrostomy tube placement. EP Latisha CHOUDHARY IR PROCEDURE S * Bacterial Culture, Aerobic + Susceptibility (09/13/2023 2:17 PM CDT) Bacterial Culture, Aerobic + Susc No growth after 5 days of incubation. 09/18/2023 12:35 PM CDT DTL Fluid (Kidney, Left) 09/13/2023 2:17 PM CDT 09/13/2023 3:56 PM CDT Comment:Specimen Source Site : Fluid Latisha Whitehead M.D. LAB MICROBIOLOGY - GENERAL ORDERABLES [facility] [address] [place] [address], [facility] [address] [place] [address] * Gram Stain (09/13/2023 2:17 PM CDT) Gram Stain No organisms seen. White blood cells, Rare 09/13/2023 9:02 PM CDT DTL Fluid (Kidney, Left) 09/13/2023 2:17 PM CDT 09/13/2023 3:56 PM CDT Comment:Specimen Source Site : Fluid Latisha Whitehead M.D. LAB MICROBIOLOGY - GENERAL ORDERABLES Performing Organization Address City/[facility]/ZIP Co de Phone Number [facility] [address] [place] [address], [facility] [address] [place] [address] * Fungal Culture, Routine (09/13/2023 2:17 PM CDT) Fungal Culture, Routine No growth after 24 days of incubation. 10/08/2023 1:02 AM CDT DTL Fluid (Kidney, Left) 09/13/2023 2:17 PM CDT 09/13/2023 3:56 PM CDT Comment:Specimen Source Site : Fluid Latisha Whitehead M.D. LAB MICROBIOLOGY - GENERAL ORDERABLES [facility] [address] [place] [address], [facility] [address] [place] [address] * Bacterial Culture, Anaerobic + Susceptibility (09/13/2023 2:17 PM CDT) [facility] Bacterial Culture, Anaerobic + Susc No growth after 14 days of incubation. 09/27/2023 8:04 AM CDT DTL Fluid (Kidney, Left) 09/13/2023 2:17 PM CDT 09/13/2023 3:56 PM CDT Comment:Specimen Source Site : Fluid Latisha Whitehead M.D. LAB MICROBIOLOGY - GENERAL ORDERABLES Performing Organization Address City/[facility]/ZIP Co de Phone Number [facility] [address] [place] [address] * APTT (Activated Partial Thromboplastin Time) (09/13/2023 5:56 AM CDT) Only the most recent of18 resultswithin the time period is included. [facility] Activated Partial Thrombopl Time, P 35 25 - 37 sec 09/13/2023 7:14 AM CDT DT Blood (Blood, Venous) 09/13/2023 5:56 AM CDT 09/13/2023 6:53 AM CDT Sumit Holbrook M.D. LAB BLOOD ADD-ON Performing Organization Address City/[facility]/ZIP Co de Phone Number [facility] [address] [place] [address] * (ABNORMAL) Basic Metabolic Panel (09/13/2023 5:56 AM CDT) Only the most recent of14 resultswithin the time period is included. [facility] Potassium, S 3.7 3.6 - 5.2 [...] CDT Paula Hernandez M.D. LAB BLOOD ADD-ON [address] [address], [facility] [address] [address] * NM Kidney DMSA (09/12/2023 12:21 PM [...] reduced radiotracer uptake asdescribed. Js Yang M.D. [facility] [place] PROCEDURES * Transfuse Red Blood Cells [...] RAD IMAGI NG PROCEDURES Performing Organization Address [facility] Co de Phone Number IIMS NA * Osmolality, Urine (09/09/2023 11:28 AM CDT) Only the most recent of2 resultswithin the time period is included. Osmolality, U 380 150 - 1150 mOsm/kg 09/09/2023 12:19 PM CDT DTL Urine 09/09/2023 11:2 8 AM CDT 09/09/2023 11:58 AM CDT Jeffery Church M.D. LAB URINE ORDERA BLES Performing Organization Address City/[facility] Co de Phone Number [facility] [address] [place] [address] * (ABNORMAL) Dipstick, Urine (09/09/2023 11:28 AM [...] LAB URINE ORDERA BLEBryon Performing Organization Address [facility] Co de Phone Number [facility] [address] [place] [address] * pH, Random, Urine (09/09/2023 11:28 AM CDT) Only the most recent of2 resultswithin the time period is included. pH, Random, U 6.3 4.5 - 8.0 09/09/2023 12:19 PM CDT DTL Urine 09/09/2023 11:2 8 AM CDT 09/09/2023 11:58 AM CDT Jeffery Church M.D. LAB URINE ORDERA BLES Performing Organization Address City/[facility]/ZIP Co de Phone Number [facility] [address] DTL [facility] [address] [place] [address] * (ABNORMAL) Microscopic Manual (09/09/2023 11:28 AM [...] Jeffery Church M.D. LAB URINE ORDERA SHELLY [facility] [address] [place] [address], [facility] [address] [place] [address] * (ABNORMAL) Bacterial Culture, Aerobic + Susceptibility, [...] LAB MICROBIOLOGY - GENERAL ORDERABLES [facility] [address] [place] [address], [facility] [address] [place] [address] * (ABNORMAL) Gram Stain, Urine (09/09/2023 11:28 AM CDT) Source Urine, Urine, Straight Catheter 09/09/2023 11:58 AM CDT DTL Gram Stain, U Positive(A) Negative 09/09/2023 12:16 PM CDT DTL Comment: Few Gram-negative bacilli ? Yeast Urine 09/09/2023 11:2 8 AM CDT 09/09/2023 11:58 AM CDT Jeffery Church M.D. LAB URINE ORDERA BLEBryon Performing Organization Address [facility] Co de Phone Number [facility] [address] [place] [address], [facility] DTL [facility] [address] [place] [address] * (ABNORMAL) Urinalysis, with Microscopic: Urine, Straight [...] 09/09/2023 1:02 PM CDT DTL Predicted Range 2480-42016 mg/24 h 09/09/2023 1:02 PM CDT DTL Comment Micro done on <2.5 mL 09/09/2023 12:27 PM CDT DTL Urine (Urine, Straight Catheter) 09/09/2023 11:28 AM CDT 09/09/2023 11:58 AM CDT Jeffery Church M.D. LAB URINE STEFFANY BRAVO Performing Organization Address [facility]/ZIP Co de Phone Number [facility] [address] [place] [address], [facility] [address] [place] [address] * US Kidneys Bilateral with Bladder (09/09/2023 [...] Church M.D. LAB BLOOD ADD-ON [facility] [address] [place] [address], [facility] [address] [place] [address] * (ABNORMAL) CBC with Differential, Blood (09/09/2023 [...] Church M.D. LAB BLOOD ADD-ON [facility] [address] [place] [address], [facility] STMA [facility] [address] [place] [address] DHPM [facility] [address] [place] [address] * Type and Screen (with Reflex Antibody ID) (09/09/2023 8:03 AM CDT) Only the most recent of6 resultswithin the time period is included. Pathologist [facility] ABORh O Pos Not applicable 09/09/2023 8:47 AM CDT STRM Antibody Screen Negative Negative 09/09/2023 9:02 AM CDT STRM Type & Screen Expiration 09/12/2023 23:59 09/09/2023 8:47 AM CDT STRM Testing Location [place] DEFAULT 09/09/2023 8:10 AM CDT STRM Blood (Blood, Venous) 09/09/2023 8:03 AM CDT 09/09/2023 8:10 AM CDT Jeffery Church M.D. LAB BLOOD BANK T EST ORDERABLES Performing Organization Address [facility] Co de Phone Number [facility] [address] STRM [facility] [address] [place] [address] * Potassium (09/05/2023 4:56 AM CDT) Only the most recent of2 resultswithin the time period is included. Potassium, S 3.6 3.6 - 5.2 mmol/L 09/05/2023 5:49 AM CDT DTL Blood (Blood, Venous) 09/05/2023 4:56 AM CDT 09/05/2023 5:22 AM CDT Roxy Romero M.D. LAB BLOOD ADD-ON Performing Organization Address [facility] Co de Phone Number [facility] [address] [place] [address], [facility] DTL [facility] [address] [place] [address] * FL Fluoro Less Than 1 Hour [...] M.D. IMG FLUOROSCOPY PROCEDURES Performing Organization Address City/[facility]/ZIP Co de Phone Number 152 [...] in the bladder lumen. Paula Hernandez M.D. [facility] PROCEDURES * (ABNORMAL) Hemoglobin (08/31/2023 4:21 AM CDT) Hemoglobin 7.8(L) 13.2 - 16.6 g/dL 08/31/2023 4:47 AM CDT DTL Blood (Blood, Venous) 08/31/2023 4:21 AM CDT 08/31/2023 4:35 AM CDT Kimi Vieira M.D., M.S. LAB BLOO D ADD-ON [facility] [address] DTL [facility] [address] [place] [address] * Lactate (08/30/2023 9:50 PM CDT) Lactate, P 1.8 0.5 - 2.2 mmol/L 08/30/2023 10:09 PM CDT STMA Blood (Blood, Venous) 08/30/2023 9:50 PM CDT 08/30/2023 9:55 PM CDT Shannan Correa D.O., M.H.A. LAB BLOOD NON ADD-ON Performing Organization Address City/[facility] Co de Phone Number [facility] [address] [place] [address], [facility] STMA [facility] [address] [place] [address] * DX Chest AP or PA and [...] included. Ventricular Rate ECG/Min 145 BPM MUSE IL Interval 136 ms MUSE QRSD Interval 64 ms MUSE QT Interval 260 ms MUSE QTC Interval 403 ms MUSE P Lamar 44 degrees MUSE R Lamar 9 degrees MUSE T Wave Lamar -76 degrees MUSE 08/30/2023 7:44 PM CDT [...] CDT Boubacar Brock M.D. LAB BLOOD ADD-ON [facility] [address] [place] [address], [facility] [address] [place] [address] * Magnesium (08/26/2023 3:20 AM CDT) Only the most recent of6 resultswithin the time period is included. Magnesium, S 2.1 1.7 - 2.3 mg/dL 08/26/2023 4:04 AM CDT DT Blood (Blood, Venous) 08/26/2023 3:20 AM CDT 08/26/2023 3:50 AM CDT Boubacar Brock M.D. LAB BLOOD ADD-ON [facility] [address] [place] [address], [facility] [address] [place] [address] * (ABNORMAL) Phosphorus Inorganic (08/23/2023 9:58 PM CDT) Only the most recent of2 resultswithin the time period is included. Phosphorus (Inorganic), S 2.1(L) 2.5 - 4.5 mg/dL 08/23/2023 10:45 PM CDT DT Blood (Blood, Venous) 08/23/2023 9:58 PM CDT 08/23/2023 10:30 PM CDT Paula Hernandez M.D. LAB BLOOD ADD-ON [facility] [address] [place] [address], [facility] [address] [place] [address] * Triglycerides (08/23/2023 3:42 AM CDT) Only [...] M.D. LAB BLOOD ADD-ON Performing Organization Address City/[facility]/ZIP Co de Phone Number [facility] [address] [place] [address], [facility] DTL [facility] [address] [place] [address] * Glucose, POCT (08/22/2023 11:38 PM CDT) Pathologist [facility] Glucose, POCT, B 117 70 - 140 mg/dL 08/23/2023 1:06 AM CDT PCLX Site Capillary 08/23/2023 1:06 AM CDT PCLX Last Intake NPO 08/23/2023 1:06 AM CDT PCLX Blood 08/22/2023 11:3 8 PM CDT 08/23/2023 1:06 AM CDT Unknown Provider LAB POCT ORDERABLES- MANUAL Performing Organization Address City/[facility] Co de Phone Number [facility] [address] [place] [address], [facility] PCLX [facility] [address] [place] [address] * CT Abdomen Pelvis without IV Contrast [...] Paula Hernandez M.D. Prieto CT PROCEDURES * Creatinine, Body Fluid (08/22/2023 [...] transport rates. All other fluids refer to www.[employer]ist[employer] for further interpretive information. This test has been modified from the director information security's instructions. Its performance characteristics were determined by [facility] in a manner consistent with CLIA requirements. This test has not been cleared or approved by the U.S. Food and Drug Administration. Fluid Type, Creatinine Fluid, Abdomen 08/22/2023 3:52 PM CDT DTL Fluid (Abdomen) 08/22/2023 3 :30 PM CDT 08/22/2023 6:36 PM CDT Corin Ring M.D. LAB BODY FLUIDS [place] [address], [place] [address] * IR PICC Line Placement (08/22/2023 8:35 AM CDT) Anatomical Region Laterality Modality Chest, Pelvis, Abdomen, Vasc ular Interventional RST LOS, Vascular Interventional ARZ LOS, Vascular Interventional FLA LOS N/A X-Ray Angiography Impressions 08/22/2023 9:05 AM CDT Placement of a right IJ vein single-lumen 4 Faroese tunneled PowerPICC ready for immediate use. NR [...] advanced into the IVC and a 4 Faroese dilator advanced over the wire and attached to a one-way stopcock. A suitable exit site in the right anterior chest was anesthetized and a small incision made. A 4 Faroese single-lumen PowerPICC was then tunneled from the [...] Wireadvanced into the IVC and a 4 Faroese dilator advanced over the wire andattached to a one-way stopcock. A suitable exit site in the right anteriorchest was anesthetized and a small incision made. A 4 Faroese single-lumen PowerPICC was then tunneled fromthe skin [...] of a right IJ vein single-lumen 4 Faroese tunneled PowerPICCready for immediate use. NR Kimi [...] Whitehead M.D. LAB BLOOD ADD-ON [facility] [address] [place] [address], [facility] DTL [facility] [address] [place] [address] * Place peripherally inserted central catheter (PICC) [...] M.D. PROCEDURE/MINOR SURGICAL ORDERABLES Performing Organization Address [facility] de Phone Number MMODAL NA * DX [...] right kidney. Lizette Harvey M.D. [facility] PROCEDUR ES * US Lower Extremity [...] and management can be found on the [employer] site. Link [email or web address]/topic/clinical-answers/cnt-71236409/[facility]-204 [address]85 Findings discussed with ??Tayler Greenwood, ?? ([id number]) on 08/17/2023 7:11 PM. Procedure Note Jj [...] thrombosis and management can be found on theAskDajieExpert site. [email or web address]/topic/clinical-answers/cnt-88623046/cpm -2049 1725 Findings discussed with Tayler Greenwood MD ([id number]) on 08/17/2023 7:11 PM. IMPRESSION: 1. Aging, [...] BLOOD NON ADD-O N Performing Organization Address City/[facility]/ZIP Co de Phone Number [facility] [address] [place] [address] * Patient Status (08/15/2023 11:56 AM CDT) Only the most recent of2 resultswithin the time period is included. Pathologist [facility] Temperature 36.2 37.0 deg C 08/15/2023 12:04 PM CDT STMA Blood 08/15/2023 11:5 6 AM CDT 08/15/2023 12:03 PM CDT Rae Gonzalez PHOTO STYLIST, GRAIN BUYER, DNAP LAB BLOO D NON ADD-ON Performing Organization Address City/[facility]/ZIP Co de Phone Number [facility] [address] [place] [address], [facility] [address] [place] [address] * Sodium, B (08/15/2023 11:56 AM CDT) Only the most recent of2 resultswithin the time period is included. Pathologist [facility] Sodium, B 135 135 - 145 mmol/L 08/15/2023 12:06 PM CDT STMA Blood (Blood, Arterial Line) 08/15/2023 11:56 AM CDT 08/15/2023 12:03 PM CDT Hayde Song M.D. LAB BLOOD NON ADD-O N [facility] [address] [place] [address], [facility] STMA [facility] [address] [place] [address] * (ABNORMAL) Blood Gas with Coox, Arterial [...] BLOOD NON ADD-O N Performing Organization Address City/[facility]/ZIP Co de Phone Number [facility] [address] [place] [address], [facility] [address] [place] [address] * Potassium, Blood (08/15/2023 11:56 AM CDT) Only the most recent of2 resultswithin the time period is included. Potassium, B 4.3 3.6 - 5.2 mmol/L 08/15/2023 12:07 PM CDT STMA Blood (Blood, Arterial Line) 08/15/2023 11:56 AM CDT 08/15/2023 12:03 PM CDT Hayde Song M.D. LAB BLOOD NON ADD-O N Performing Organization Address City/[facility] [facility] System/ZIP Co de Phone Number [facility] [address] [place], [place] [address] [address] [place] [address] * (ABNORMAL) Glucose, Whole Blood (08/15/2023 11:56 AM CDT) Only the most recent of2 resultswithin the time period is included. Glucose 144(H) 70 - 140 mg/dL 08/15/2023 12:06 PM CDT [facility] Blood (Blood, Arterial Line) 08/15/2023 11:56 AM CDT 08/15/2023 12:03 PM CDT Hayde Song M.D. LAB BLOOD ADD-ON Performing Organization Address City/[facility]/ZIP Co de Phone Number [facility] [address] [place] [address], [facility] [address] [place] [address] * (ABNORMAL) Calcium, Ionized (08/15/2023 11:56 AM CDT) Only the most recent of2 resultswithin the time period is included. Calcium, Ionized, B 4.53(L) 4.65 - 5.30 mg/dL 08/15/2023 12:07 PM CDT [facility] Blood (Blood, Arterial Line) 08/15/2023 11:56 AM CDT 08/15/2023 12:03 PM CDT Hayde Song M.D. LAB BLOOD NON ADD-O N [facility] [address] [place] [address], [facility] [address] [place] [address] * [place] ARTL CATH/CNULA MONITOR [place], [place] US GUIDE VASC ACCESS, LDA ANE ARTERIAL [...] ETT location: oral VL device: glide scope [place] scope blade size: 4 Tube size: 7.5 [...] Source Site : Blood Narrative [facility] - 08/20/2023 6:02 AM CDT Received Bactec aerobic and Bactec anaerobic bottles Carlos Alberto Henson M.D. LAB MICROBIOLOGY - G ENERAL ORDERABLES Performing Organization Address City/[facility]/ZIP Co de Phone Number [facility] [address] [place] [address], [facility] [address] [place] [address] * (ABNORMAL) Hepatic Function Panel (08/13/2023 5:27 [...] M.D. LAB BLOOD ADD-ON Performing Organization Address City/[facility]/ZIP Co de Phone Number [facility] [address] [place] [address], [facility] [address] [place] [address] * Interpretation of Outside CT Abdomen and [...] IMG CT PROCEDURES Performing Organization Address City/State/[facility] Co de Phone Number [facility] NA from Last 3 Months Advance Directives For more information, please contact: [phone] * Full Code (Latest Code Status on File) Date Activated Date Inactivated Comments 08/30/2023 10:40 PM 09/05/2023 6:15 PM Question Answer Comments Full Code: Not Discussed Due to: Patient not available * Full Code Date Activated Date Inactivated Comments 08/13/2023 4:30 PM 08/26/2023 6:58 PM Question Answer Comments Full Code: Discussed Care Teams Tapper Operator Relationship Specialty Start Date End Date Elsewhere, Pcp PCP - General Internal Medicine 08/13/23
--- OUTSIDE RECORDS SUMMARY | 2023-11-04 12:30 | XMS_ITS | Encounter Summary ---
Author Organization [facility] Address [address] [place] [address] Care Team Providers Care Mortar Carrier Name Role Phone Elsewhere, Pcp Primary Care Provider Unavailabl e Reason for Referral * Outpatient (Routine) - Authorized Specialty Diagnoses / Procedures Referred By Contaraceli t Referred To Contact Urology Diagnoses Hematuria Paula Benton M.D. [address] [place] [address] [facility] Referral ID Status Reason Start Date Expiration Date V isits Requested Visits Authorized [id number] Authorized 09/15/2023 03/16/2025 1 1 Encounter Details Date Type Department Care Team (Late st Contact Info) Description 09/15/2023 Clinical Communication [facility] [address] [place] [address] Yasmine Loco Social History Tobacco Use Types Packs/Day Years Used Date Smoking Tobacco: Never Smokeless Tobacco: Never [facility] Utilities Answer Date Recorded In the [...] your living situation today? I have a [facility] place to live 09/09/2023 Sex and Gender Information Value Date Recorded Sex Assigned at Not on file Gender Identity Not on file Sexual Orientation Not on file documented as of this encounter Plan of Treatment Upcoming Encounters Date Type Department Care Team (Late st Contact Info) Description 11/09/2023 11:00 AM CDT Office Visit Department of Urology in [place], [place] [address] [place] [phone] Burke Strauss M.D. [facility] [place] [address] Discharge Disposition: Home or Self [...] documented as of this encounter Care Teams Mortar Carrier Relationship Specialty Start Date End Date Elsewhere, Pcp PCP - General Internal Medicine 08/13/23 documented as of this encounter
--- OUTSIDE RECORDS SUMMARY | 2023-11-04 12:30 | XMS_ITS | Encounter Summary ---
Author Organization [facility] Address [address] [place] [address] Care Team Providers Care Retail Cashier Name Role Phone Elsewhere, Pcp Primary Care Provider Unavailabl e Reason for Visit * Reason Onset Date Comments follow up questions 09/16/2023 Encounter Details Date Type Department Care Team (Latest Contact Info) Description 09/16/2023 Clinical Communication Department of Urology in [place], [place] [address] [place] [address] Provider, Unknown follow up questions Social History Tobacco Use Types Packs/Day Years Used Date Smoking Tobacco: Never Smokeless Tobacco: Never [employer] Utilities Answer Date Recorded In the past 12 months has [facility] [employer], gas, oil, or water [employer] threatened to shut off services in your [...] a [facility] place to live 09/09/2023 Sex and [...] CDT Office Visit Department of Urology in [place], [place] [address] [place] [address] Burke Strauss M.D. 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
--- OUTSIDE RECORDS SUMMARY | 2023-11-04 12:30 | XMS_ITS | Encounter Summary ---
Author Organization [facility] Address [address] [place] [address] Care Team Providers Care Drum Drier Operator Name Role Phone Elsewhere, Pcp Primary Care Provider Unavailabl e Reason for Visit * Reason Comments Catheter Care Plan Encounter Details Date Type Department Care Team (Late st Contact Info) Description 10/14/2023 Documentation Department of Urology in [place], [place] [address] [place] [address] Paula Hernanedz M.D. [address] [place] [address] Catheter Care Plan Social History Tobacco Use [...] this encounter Progress Notes * Ashleigh Ferreira RJonahN. - 10/14/2023 2:05 PM CDT Treatment Summary and Care Plan - Catheter Exchange General Information [facility]/ Patient Name: Kalen Vega Date: 1940 Health Care Provider(s) Medical Provider(s) Cesar Mccollum M.D. Institution: No address on file [place], [place] Urology Provider(s) Chief Urology residents Last seen by Paula Hernandez M.D. Institution: [facility] Treatment Summary Diagnosis Hydronephrosis; hematuria; metastatic prostate cancer; radiation cystitis Treatment Surgery []Yes [x] No Surgery Date(s) Surgical Procedure/Location/Findings Current Treatment Information/Follow-up Care Plan Frequency of Catheter Changes (i.e. every 4 weeks) every 4 weeks Catheter Information Type: Coude red rubber Size:20F Reference #: [id number] Catheter Prescription Expires NA Last seen by [...] CDT Office Visit Department of Urology in [address] [phone] Burke Strauss M.D. [address] [place] [phone] Discharge Disposition: Home or Self Care documented as of this encounter Visit Diagnoses Not on filedocumented in this encounter Care Teams Drum Drier Operator Relationship Specialty Start Date End Date Elsewhere, Pcp PCP - General Internal Medicine 08/13/23 documented as of this encounter
--- OUTSIDE RECORDS SUMMARY | 2023-11-04 12:30 | XMS_ITS ---
Author Organization [facility] Address [address] [place] [address] Care Team Providers Care [employer] Senior Officer Name Role Phone Elsewhere, Pcp Primary [...] On Elapsed Days Session Dose Total Dose [id number] 04/28/2020 32 300 cGy 6,000 cGy Lifetime Dose Tracking * Chemical Lifetime Dose Automatic Entry Manual Entr y Radiation 20.4 mGy 20.4 mGy 0 mGy Fluoro Time 2.005 minutes 2.005 minutes 0 minutes DAP (uGy-m2) 479.6 uGy-m2 479.6 uGy-m2 0 uGy-m2
--- OUTSIDE RECORDS SUMMARY | 2023-11-04 12:30 | XMS_ITS | Encounter Summary ---
Author Organization [facility] Address [address] [place] [address] Care Team Providers Care Bank Credit Card Collection Clerk Name Role Phone Elsewhere, Pcp Primary Care Provider Unavailabl e Reason for Visit * Reason Comments Urinary Retention * Outpatient (Routine) - Closed Specialty Diagnoses / Procedures Referred By Contaraceli t Referred To Contact Diagnoses Hematuria Procedures URO Urethral cath change (UCC) Paula Hernandez M.D. [address] [place] [phone] [facility] Referral ID Status Reason Start Date Expiration Date Visits Re quested Visits Authorized [id number] Closed 09/15/2023 09/14/2024 1 1 Encounter Details Date Type Department Care Team (Late st Contact Info) Description 10/14/2023 1:00 PM CDT Procedure visit Department of Urology in [place], [place] [address] [place] [phone] Paula Hernandez M.D. [address] [place] [phone] Khadra Miller R.N. [address] [place] [phone] Hematuria Social History Tobacco Use Types Packs/Day [...] have a [facility] place to live 09/09/2023 Sex and [...] Notes * Addendum Note - Khadra Miller R.N. - 10/14/2023 1:00 PM CDTAddended by: KHADRA MILLER on: 10/14/2023 01:25 PM Modules accepted: Level of Service documented in this encounter Plan of Treatment Upcoming Encounters Date Type Department Care Team (Late st Contact Info) Description 11/09/2023 11:00 AM CDT Office Visit Department of Urology in [place], [place] [address] [place] [address] Burke Strauss M.D. [facility] [place] [phone] Discharge Disposition: Home or Self Care documented as of this encounter Visit Diagnoses Diagnosis Hematuria documented in this encounter Care Teams Bank Credit Card Collection Clerk Relationship Specialty Start Date End Date Elsewhere, Pcp PCP - General Internal Medicine 08/13/23 documented as of this encounter
--- OUTSIDE RECORDS SUMMARY | 2023-11-04 12:31 | XMS_ITS | Encounter Summary ---
Author Organization [facility] Address [address] [place] [address] Care Team Providers Care Parent Aide Name Role Phone Elsewhere, Pcp Primary Care Provider Unavailabl e Reason for Referral * Outpatient (Routine) - Closed Specialty Diagnoses / Procedures Referred By Contac t Referred To Contact Diagnoses Hematuria Procedures URO Urethral cath change (UCC) Paula Hernandez M.D. [address] [place] [address] [facility] Referral ID Status Reason Start Date Expiration Date Visits Re quested Visits Authorized [id number] Closed 09/15/2023 09/14/2024 1 1 * Outpatient (Routine) - Authorized Specialty Diagnoses / Procedures Referred By Contac t Referred To Contact Radiology Diagnoses Hematuria Procedures IR Nephrostomy Tube Exchange Left Paula Hernandez M.D. [address] [place] [address] [facility] Referral ID Status Reason Start Date Expiration Date V isits Requested Visits Authorized [id number] Authorized 09/15/2023 09/14/2024 1 1 Reason for Visit * Reason Comments Blood in Urine Encounter Details Date Type Department Care Team (Latest Contact Info) Description 09/09/2023 7:24 AM CDT - 09/15/2023 5:28 PM CDT Hospital Encounter [facility], [facility], Sixth Floor [address] [place] [phone] Gerri Merrill M.D., Ph.D. [address] [place] [phone] Sumit Holbrook M.D. [address] [place] [phone] Hematuria (Primary Dx) Discharge Disposition: Home or Self Care Social History Tobacco Use Types Packs/Day Years Used Date Smoking Tobacco: Never Smokeless Tobacco: Never [facility] goodide[employer]sities Answer Date Recorded In the past 12 months has [facility] [employer], gas, oil, or water [employer] threatened to shut off services in your [...] AM CDT DISCHARGE SUMMARY BRIEF OVERVIEW Hospital: [facility] Discharge Provider: Sumit Holbrook M.D. Primary Team: [facility] Urology Surgery - Chief Helga Rojas Primary [...] IP CONSULT TO UROLOGY IP CONSULT TO NUT ORCHARDIST WOUND CARE IP CONSULT TO HYPERBARIC MEDICINE IP CONSULT TO VASCULAR MEDICINE IP CONSULT TO DIETITIAN CONDITION AT DISCHARGE stable Discharge instructions were provided to the patient and caregiver(s). documented in this encounter Discharge Instructions * Discharge Instructions* Yasmine Loco - 09/09/2023 12:27 PM CDT You were discharged from the [facility] Urology Surgery - Chief A - Blue Service. Please identify this service name if you call with questions after hospitalization. * Attachments The following attachments cannot be sent through Care Everywhere. * Sulfamethoxazole/Trimethoprim (By mouth) (Romansh) documented in this encounter Medications at Time [...] home. Social Work also sent referral to [facility] and reached out to Service [...] and home health care services. Referral sent: [facility] ASSESSMENT / PLAN ASSESSMENT Social [...] reviewed. GI Function: Last BM Date: 09/11/23, [place] Stool Chart: Type 5: Soft blobs with [...] 86.8 kg (09/09/2023) Current Weight: 84.5 kg Lyndon Body Weight (Calculated) : 75.3 kg BMI [...] or 5%. Estimated Needs: Total Calorie Needs: 0180-4592 calories/day Method to Estimate Energy Needs: kcal/kg [...] about patient's nutritional care please contact pager [phone] on weekdays 07:30-16:00 or [phone] on weekends/holidays ([facility]). * Clara Luu APRN, C.N.P., D.N.P. [...] - 09/14/2359 09/14/23699 - 09/15/23 0659 Shift [id number] [phone] [phone] 24 Hour Total 8044-9842 5927-6649 5924-4012 24 Hour Total INTAKE Other 30 60 [...] please contact Vascular and Interventional Radiology DEBBI ([phone]). Anticoagulation: A percutaneous nephrostomy tube is considered [...] care. Please feel free to page the [facility] Inpatient Consult Service at [phone] or the on-call resident at [phone] after 5 PM and on weekends with [...] . Neph tube clear yellow urine. I/O ([id number]): 1.9 L, 1.1 L from the neph [...] questions or concerns. Pager during business hours: [phone] Pager after hours: [phone] * Paula Hernandez M.D. - 09/13/2023 6:05 [...] in place draining clear yellow urine I/O ([id number]): Adequate urine output 2.7 L/248 1 L [...] questions or concerns. Pager during business hours: [phone] Pager after hours: [phone] * Raya Meza Pharm.D., R.Ph., [facility] - 09/12/2023 7:44 AM CDT Images [...] follow for medicationuse optimization Pharm. YanciDJonah, R.Ph., [facility] Addendum: Heparin will be stopped [...] in place draining clear yellow urine I/O (4767-8861): CBI paused for obs Labs: Hb: Hemoglobin [...] Date/Time Bacterial Culture, Aerobic + Susceptibility, Urine [[id number]] (Abnormal) (Susceptibility) Collected: 09/09/23 1128 Lab Status: [...] Susceptible Bacterial Culture, Aerobic + Susceptibility, Urine [[id number]] Collected: 09/03/23 1050 Lab Status: Final result [...] DVT - Hold Plavix and Eliquis -Bactrim [facility] Summary: Diet: regular Activity: ad kong DVT PPX: low intensity heparin drip GI PPX: none Bowel Regimen: senna, miralax IVF: none Abx/Microbiology: bactrim started 09/11 Pain Control: scheduled trospium Home Meds Resumed: enzalutamide, metoprolol, Crestor Held Home Meds: Xarelto, Plavix Consults: Vascular Medicine Paula Hernandez M.D. 09/12/2023 Please page the Urology Chief Service with questions or concerns. Pager during business hours: [phone] Pager after hours: [phone] * Js Yang M.D. - 09/11/2023 9:18 [...] Service [place] [phone] during business hours orat [phone] after hours. * Portillo Crespo Pharm.D., R.Ph., [...] Mayur Collier PharmD, LUCERO, BCPS, [facility] Pager [phone] * Js Yang M.D. - 09/10/2023 9:50 [...] Service [place] [phone] during business hours orat [phone] after hours. 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 They agree to the plan. The [facility] RN will continue to see the patient, contact or reconsult for worsening wounds or new wounds. Electronically signed by: Jazmine Benítez R.N., C.W.C.N. 09/09/23 1:16 PM CDT * Raya Meza Pharm.D., R.Ph., [facility] - 09/09/2023 11:17 AM CDT Images [...] for medicationuse optimization Stephanie Meza Pharm.D., R.Ph., [facility] Admission Medication History Note Adherence issues: No concerns Medication list source: Patient, son, recent filling Hx Medication related information: Per pt, he takes amlodipine, mirabegron daily in the afternoon, around 1 to 2 pm-tucker, for no specific reasons Prior to Admission Medications Med List Status: Pharmacy Complete Set By: Raya Meza Pharm.D., R.Ph., [facility] at 09/09/2023 11:16 AM Taking? [...] follow Paula Hernandez M.D. Urology PGY-2 Pager #[phone] Please page Chief Urology at [phone] from 7 AM - 5 PM or at [phone] after hours with any questions/concerns. documented in [...] reviewed. GI Function: Last BM Date: 09/11/23, [place] Stool Chart: Type 5: Soft blobs with [...] 86.8 kg (09/09/2023) Current Weight: 84.5 kg Lyndon Body Weight (Calculated) : 75.3 kg BMI [...] or 5%. Estimated Needs: Total Calorie Needs: 5903-8117 calories/day Method to Estimate Energy Needs: kcal/kg [...] about patient's nutritional care please contact pager [phone] on weekdays 07:30-16:00 or [phone] on weekends/holidays ([facility]). * Clara Luu, ARUN, C.N.P., D.N.P. - 09/12/2023 11:59 AM CDTAssociated [...] admitted for CBI. He was transferred to [facility] after difficultywith irrigating his Jon and CT [...] Brock M.D.; Location: T ROMB OR CYSTOSCOPY CYSTOGRAM VOIDING N/A 08/31/2023 [...] and recommendations. Please feel free to page [phone] [phone] after 5 PM and on weekends with additional questions. VIR will continue to follow * Alessandra Aguero D.O. - 09/09/2023 5:26 PM CDTAssociated Order(s): IP CONSULT TO VASCULAR MEDICINE VASCULAR MEDICINE CONSULT NOTE Requesting Physician: Gerri Merrill M.D.,* SUBJECTIVE REASON FOR CONSULT: assistance with AC management, patient on plavix and eliquis admitted with refractory hematuria requing CBI. Recommend heparin drip? thanks [facility] [phone] HISTORY OF PRESENT ILLNESS Mr. Vega is [...] stents placed in total (2016, no prior VT, completed after positive stress test) Recommended for [...] for radiation proctitis SOCIAL HISTORY Lives in [place], [place] OBJECTIVE AVSS General: Lying in bed, [...] with Dr. Victoria, the chief urology resident reservations agent. Please page chief Urology Service [place] [phone] [place] [phone] after hours. Paula Hernandez M.D. 09/09/23 9:10 [...] this encounter Nursing Notes * Brittanie Lewis, R.N. - 09/15/2023 5:18 PM CDT Shift Goals: Clinical Goals for the Shift: Pt will report adequate pain control during shift Identify possible barriers to meeting goals/advancing plan of care: none End of Shift Summary: Pt DC'd to [facility] [place] family. Patient educated on nephrostomy tube [...] Urology consulted after discussion with the catheter product technician who advised that for this patient they are required to get approval from Urologyprior to placing catheter. ED Course as of 09/09/23 0958 TueSeptember 09, 2023 0822 Hemoglobin(!): 8.9 Down from 9.6 one-week ago 0822 Leukocytes(!): 14.5 New leukocytosis with neutrophilia 0822 INR: 1.1 0823 Discussed with the catheter product technician. Bladder scan showed 125 mL. There [...] Office Visit Department of Urology in [address] [phone] Burke Strauss M.D. [facility] [place] [phone] Discharge Disposition: Home or Self Care Pending [...] CBC without Differential (09/15/2023 3:37 AM CDT) Pathologist [facility] Hemoglobin 9.8(L) 13.2 - 16.6 g/dL 09/15/2023 [...] Paula Hernandez M.D. LAB BLOOD ADD-ON [facility] [address] [place] [address], [facility] DTDepartment of Veterans Affairs [facility] [address] [place] [address] * Heparin Anti-Xa Assay (09/14/2023 3:19 AM CDT) [facility] Heparin Anti-Xa, P 0.11 IU/mL [...] Sumit Holbrook M.D. LAB BLOOD NON ADD-ON [address] [address], [facility] DTDepartment of Veterans Affairs [facility] [address] [place] [address] * (ABNORMAL) CBC without Differential (09/14/2023 3:19 AM CDT) [facility] Hemoglobin 10.1(L) 13.2 - 16.6 [...] [facility] [address] [place] [address], [facility] DTDepartment of Veterans Affairs [facility] [address] [place] [address] * IR Nephrostomy Tube Placement Left (09/13/2023 2:20 PM CDT) Anatomical Region Laterality Modality Genito Urinary, Vascular Int erventional RST LOS, Vascular Interventional ARZ LOS, Vascular Interventional FLA LOS Left X-Ray Angiography Impressions 09/13/2023 2:33 PM CDT Left 10 Czech percutaneous nephrostomy tube placement. EP Narrative 09/13/2023 [...] tract was further dilated and a 10 Czech nephrostomy tube was placed with loop formed [...] sedation timewas: 9 minutes. IMPRESSION: Left 10 Czech percutaneous nephrostomy tube placement. EP Latisha Whitehead M.D. IMG IR PROCEDURE S * Fungal Culture, Routine (09/13/2023 2:17 PM CDT) Fungal Culture, Routine No growth after 24 days of incubation. 10/08/2023 1:02 AM CDT DTL Fluid (Kidney, Left) 09/13/2023 2:17 PM CDT 09/13/2023 3:56 PM CDT Comment:Specimen Source Site : Fluid Latisha Whitehead M.D. LAB MICROBIOLOGY - GENERAL ORDERABLES Performing Organization Address [facility]/ZIP Co de Phone Number [facility] [address] [place], [place] [phone] [place] [address] * Bacterial Culture, Anaerobic + Susceptibility (09/13/2023 2:17 PM CDT) Bacterial Culture, Anaerobic + Susc No growth after 14 days of incubation. 09/27/2023 8:04 AM CDT DTL Fluid (Kidney, Left) 09/13/2023 2:17 PM CDT 09/13/2023 3:56 PM CDT Comment:Specimen Source Site : Fluid Latisha Whitehead M.D. LAB MICROBIOLOGY - GENERAL ORDERABLES Performing Organization Address City/[facility]/ZIP Co de Phone Number [facility] [address] [place] [address], [address] [address] * Gram Stain (09/13/2023 2:17 PM CDT) Gram Stain No organisms seen. White blood cells, Rare 09/13/2023 9:02 PM CDT DTL Fluid (Kidney, Left) 09/13/2023 2:17 PM CDT 09/13/2023 3:56 PM CDT Comment:Specimen Source Site : Fluid Latisha Whitehead M.D. LAB MICROBIOLOGY - GENERAL ORDERABLES Performing Organization Address City/[facility]/ZIP Co de Phone Number [facility] [address] [place], [place] [phone] [place] [address] [address] [place] [address] * Bacterial Culture, Aerobic + Susceptibility (09/13/2023 2:17 PM CDT) Bacterial Culture, Aerobic + Susc No growth after 5 days of incubation. 09/18/2023 12:35 PM CDT DTL Fluid (Kidney, Left) 09/13/2023 2:17 PM CDT 09/13/2023 3:56 PM CDT Comment:Specimen Source Site : Fluid Latisha Whitehead M.D. LAB MICROBIOLOGY - GENERAL ORDERABLES Performing Organization Address City/[facility]/ZIP Co de Phone Number [facility] [address] [place], [place] [phone] [place] [address] [address] [place] [address] * (ABNORMAL) CBC without Differential (09/13/2023 5:57 [...] Victoria M.D. LAB BLOOD ADD-ON [facility] [address] [place] [address], [facility] DTDepartment of Veterans Affairs [facility] [address] [place] [address] * Heparin Anti-Xa Assay (09/13/2023 5:56 AM [...] M.D. LAB BLOOD NON ADD-ON [facility] [address] [place], [place] [phone] [place] [address] * APTT (Activated Partial Thromboplastin Time) (09/13/2023 5:56 AM CDT) Pathologist [facility] Activated Partial Thrombopl Time, P 35 25 - 37 sec 09/13/2023 7:14 AM CDT DTL Blood (Blood, Venous) 09/13/2023 5:56 AM CDT 09/13/2023 6:53 AM CDT Sumit Holbrook M.D. LAB BLOOD ADD-ON Performing Organization Address City/[facility] Co de Phone Number [facility] [address] [place], [place] [phone] [place] [address] * (ABNORMAL) Basic Metabolic Panel (09/13/2023 5:56 AM CDT) [facility] Potassium, S 3.7 3.6 - [...] [facility] [address] [place] [address], [facility] DTL [facility] [address] [place] [address] * NM Kidney DMSA (09/12/2023 12:21 PM [...] reduced radiotracer uptake asdescribed. Js Yang M.D. [facility] [place] [facility] NM PROCEDURES * [...] M.D. LAB BLOOD ADD-ON Performing Organization Address [facility] Co de Phone Number [facility] [address] [place] [address] * (ABNORMAL) APTT (Activated Partial Thromboplastin Time) (09/12/2023 3:42 AM CDT) Pathologist [facility] Activated Partial Thrombopl Time, P 49(H) 25 - 37 sec 09/12/2023 4:35 AM CDT DTL Blood (Blood, Venous) 09/12/2023 3:42 AM CDT 09/12/2023 4:00 AM CDT Gerri Merrill M.D., Ph.D. LAB BLOOD A DD-ON Performing Organization Address [facility] Co de Phone Number [facility] [address] [place] [address] * (ABNORMAL) Basic Metabolic Panel (09/11/2023 8:23 [...] Yang M.D. LAB BLOOD ADD-ON [facility] [address] [place] [address], [facility] DTDepartment of Veterans Affairs [facility] [address] [place] [address] * (ABNORMAL) CBC without Differential (09/11/2023 8:23 [...] M.D. LAB BLOOD ADD-ON Performing Organization Address City/[facility]/ZIP Co de Phone Number [facility] [address] [place] [address] * (ABNORMAL) APTT (Activated Partial Thromboplastin Time) (09/10/2023 11:42 PM CDT) Activated Partial Thrombopl Time, P 47(H) 25 - 37 sec 09/11/2023 2:05 AM CDT DTL Blood (Blood, Venous) 09/10/2023 11:42 PM CDT 09/11/2023 2:05 AM CDT Gerri Merrill M.D., Ph.D. LAB BLOOD A DD-ON Performing Organization Address [facility] Co de Phone Number [facility] [address] [place] [address] * US Urinary Bladder (09/10/2023 8:41 PM [...] LAB BLOOD A DD-ON Performing Organization Address City/[facility]/ZIP Co de Phone Number [facility] [address] [place] [address], [facility] DTDepartment of [facility] Affairs [facility] [address] [place] [address] * (ABNORMAL) APTT (Activated Partial Thromboplastin Time) (09/10/2023 10:11 AM CDT) Activated Partial Thrombopl Time, P 63(H) 25 - 37 sec 09/10/2023 10:57 AM CDT DTL Blood (Blood, Venous) 09/10/2023 10:11 AM CDT 09/10/2023 10:40 AM CDT Gerri Merrill M.D., Ph.D. LAB BLOOD A DD-ON [facility] [address] [place] [address], [facility] DTDepartment of Veterans Affairs [facility] [address] [place] [address] * (ABNORMAL) CBC without Differential (09/10/2023 3:27 AM CDT) Pathologist [facility] Hemoglobin [...] Victoria M.D. LAB BLOOD ADD-ON [facility] [address] [place] [address], [facility] DTDepartment of Veterans Affairs [facility] [address] [place] [address] * (ABNORMAL) APTT (Activated Partial Thromboplastin Time) (09/10/2023 12:06 AM CDT) [facility] Activated Partial Thrombopl Time, P 57(H) 25 - 37 sec 09/10/2023 1:05 AM CDT DTL Blood (Blood, Venous) 09/10/2023 12:06 AM CDT 09/10/2023 12:33 AM CDT Gerri Merrill M.D., Ph.D. LAB BLOOD A DD-ON Performing Organization Address City/[facility] Co de Phone Number [facility] [address] [place] [address], [facility] DTL [facility] [address] [place] [address] * APTT (Activated Partial Thromboplastin Time) (09/09/2023 5:08 PM CDT) Pathologist [facility] Activated Partial Thrombopl Time, P 31 25 - 37 sec 09/09/2023 5:24 PM CDT STMA Blood (Blood, Venous) 09/09/2023 5:08 PM CDT 09/09/2023 5:12 PM CDT Ko Victoria M.D. LAB BLOOD ADD-ON Performing Organization Address [facility] Co de Phone Number [facility] [address] STMA [facility] [address] [place] [address] * (ABNORMAL) Dipstick, Urine (09/09/2023 11:28 AM CDT) Pathologist [facility] Hemoglobin, QL, U Large(A) Negative 09/09/2023 12:03 [...] M.D. LAB URINE ORDERA BLES [facility] [address] [place], [place] [address] [address] [place] [address] * pH, Random, Urine (09/09/2023 11:28 AM CDT) pH, Random, U 6.3 4.5 - 8.0 09/09/2023 12:19 PM CDT DTL Urine 09/09/2023 11:2 8 AM CDT 09/09/2023 11:58 AM CDT Jeffery Church M.D. LAB URINE ORDERA BLES Performing Organization Address City/[facility]/ZIP Co de Phone Number [facility] [address] [place], [place] [address] [address] [place] [address] * Osmolality, Urine (09/09/2023 11:28 AM CDT) Osmolality, U 380 150 - 1150 mOsm/kg 09/09/2023 12:19 PM CDT DTL Urine 09/09/2023 11:2 8 AM CDT 09/09/2023 11:58 AM CDT Jeffery Church M.D. LAB URINE ORDERA BLES Performing Organization Address City/[facility]/ZIP Co de Phone Number [facility] [address] [place], [place] [address] [address] [place] [address] * (ABNORMAL) Microscopic Manual (09/09/2023 11:28 AM [...] LAB URINE ORDERA LAKESHABryon Performing Organization Address [facility] Co de Phone Number [facility] [address] [place], [place] [phone] [place] [address] DTDepartment of Veterans Affairs [facility] [address] [place] [address] * (ABNORMAL) Gram Stain, Urine (09/09/2023 11:28 AM CDT) Source Urine, Urine, Straight Catheter 09/09/2023 11:58 AM CDT DTL Gram Stain, U Positive(A) Negative 09/09/2023 12:16 PM CDT DTL Comment: Few Gram-negative bacilli ? Yeast Urine 09/09/2023 11:2 8 AM CDT 09/09/2023 11:58 AM CDT Jeffery Church M.D. LAB URINE MARLONHelga SHELLY Performing Organization Address [facility] de Phone Number [facility] [address] [place], [place] [address] DTDepartment of Veterans Affairs [facility] [address] [place] [address] * (ABNORMAL) Bacterial Culture, Aerobic + Susceptibility, [...] LAB MICROBIOLOGY - GENERAL ORDERABLES [facility] [address] [place] [address], [place] DTL [facility] [address] [place] [address] * (ABNORMAL) Urinalysis, with Microscopic: Urine, Straight [...] 09/09/2023 1:02 PM CDT DTL Predicted Range [id number] mg/24 h 09/09/2023 1:02 PM CDT DTL Comment Micro done on <2.5 mL 09/09/2023 12:27 PM CDT DTL Urine (Urine, Straight Catheter) 09/09/2023 11:28 AM CDT 09/09/2023 11:58 AM CDT Jeffery Church M.D. LAB URINE STEFFANY BRAVO [facility] [address] [place] [address], [facility] DTDepartment of Veterans Affairs [facility] [address] [place] [address] * [place] Kidneys Bilateral with Bladder (09/09/2023 [...] Church M.D. LAB BLOOD ADD-ON [facility] [address] [place] [address], [facility] STMA [facility] [address] [place] [address] * (ABNORMAL) CBC with Differential, Blood (09/09/2023 [...] Church M.D. LAB BLOOD ADD-ON [facility] [address] [place] [address], [facility] STMA [facility] [address] [place] [address] [facility] [address] [place] [address] * (ABNORMAL) Basic Metabolic Panel (09/09/2023 8:04 [...] M.D. LAB BLOOD ADD-ON Performing Organization Address [facility] Co de Phone Number [facility] [address] [place] [address], [facility] STMA [facility] [address] [place] [address] * Type and Screen (with Reflex Antibody ID) (09/09/2023 8:03 AM CDT) ABORh O Pos Not applicable 09/09/2023 8:47 AM CDT STRM Antibody Screen Negative Negative 09/09/2023 9:02 AM CDT STRM Type & Screen Expiration 09/12/2023 23:59 09/09/2023 8:47 AM CDT STRM Testing Location [place] DEFAULT 09/09/2023 8:10 AM CDT STRM Blood (Blood, Venous) 09/09/2023 8:03 AM CDT 09/09/2023 8:10 AM CDT Jeffery Church M.D. LAB BLOOD BANK T EST ORDERABLES Performing Organization Address [facility] Co de Phone Number [facility] [address] [place] [address], [facility] STRM [facility] [address] [place] [address] documented in this encounter Visit Diagnoses Diagnosis [...] Clark R.N. - Comment: With Rodrigo MCCULLOUGH) 09 (Given - Provider: Brittanie Lewis R.N.) 09 [...] Whitney RJonahNJonah)0715 (Stopped - Provider: Leonardo Clark RNarendra) heparin (porcine) 100 Units/mL in NaCl 0.45% [...] Provider: Lars Chavez RRitesh.)1409 (Given - Provider: Trevor Mckeon.N.)1412 (Given - Provider: Lars Chavez R.N.) heparin [...] breaths/minute. 1406 (Given - Provider: Lars Chavez RRitesh.)1409 (Given - Provider: Lars Chavez R.N.) naloxone [...] documented as of this encounter Care Teams Parent Aide Relationship Specialty Start Date End Date Elsewhere, Pcp PCP - General Internal Medicine 08/13/23 documented as of this encounter
--- OUTSIDE RECORDS SUMMARY | 2023-11-04 12:31 | XMS_ITS | Encounter Summary ---
Author Organization [facility] Address [address] [place] [address] Care Team Providers Care Inspector Penetrant Name Role Phone Elsewhere, Pcp Primary Care Provider Unavailabl e Encounter Details Date Type Department Care Team (Late st Contact Info) Description 09/09/2023 12:10 PM CDT Ancillary Procedure Department of Nursing Social History Tobacco Use Types Packs/Day Years Used Date Smoking Tobacco: Never Smokeless Tobacco: Never [facility] Utilities Answer Date Recorded In the past 12 months has e electric, gas, oil, or water [employer] threatened to shut off services in your [...] a [facility] to live 09/09/2023 Sex and Gender Information Value Date Recorded Sex Assigned at Not on file Gender Identity Not on file Sexual Orientation Not on file documented as of this encounter Plan of Treatment Upcoming Encounters Date Type Department Care Team (Late st Contact Info) Description 11/09/2023 11:00 AM CDT Office Visit Department of Urology in [place], [place] [address] [place] [address] Burke Strauss M.D. [address] [place] [address] Discharge Disposition: Home or Self Care documented [...] on filedocumented in this encounter Care Teams Inspector Penetrant Relationship Specialty Start Date End Date Elsewhere, Pcp PCP - General Internal Medicine 08/13/23 documented as of this encounter
--- OUTSIDE RECORDS SUMMARY | 2023-11-04 12:31 | XMS_ITS | Encounter Summary ---
Author Organization [facility] Address [address] [place] [address] Care Team Providers Care Real Estate Clerk Name Role Phone Elsewhere, Pcp Primary Care Provider Unavailabl e Reason for Visit * Reason Comments Urinary Problem Rapid Heart Rate Encounter Details Date Type Department Care Team (Latest Contact Info) Description 08/30/2023 7:35 PM CDT - 09/05/2023 4:09 PM CDT Hospital Encounter [facility], [facility], [facility], First Floor [address] [place] [address] Kirstin Hughes M.D. [address] [place] [phone] Mayur Alvarez M.D. [address] [place] [phone] Hematuria (Primary Dx); Tachycardia; Hematuria Gross Discharge Disposition: Home-Health Care Svc Social History Tobacco Use Types Packs/Day Years Used Date Smoking Tobacco: Never Smokeless Tobacco: Never [facility] Utilities Answer Date Recorded [...] [facility] place to live 09/05/2023 Sex and [...] CDT DISCHARGE SUMMARY BRIEF OVERVIEW Hospital: [facility] Discharge Provider: Mayur Alvarez M.D. Primary Team: [facility] Urology Surgery - Chief Helga [...] CYSTOGRAM Mayur Alvarez M.D.White, Lindsay A, M.D. [facility] ROMB OR DISCHARGE DISPOSITION Home-Health Care [facility] [6] ACTIVE ISSUES REQUIRING [...] CONSULT TO CARE MANAGEMENT IP CONSULT TO MULTIPLE SPINDLE SCREW MACHINE OPERATOR WOUND CARE IP CONSULT TO HYPERBARIC MEDICINE CONDITION AT DISCHARGE improved Discharge instructions were provided to the patient and caregiver(s). documented in this encounter Discharge Instructions * Patient Instructions* Carmen Louis, R.N. - 08/31/2023 9:44 AM CDT The Senior LinkAge Line?? is a service of the [place] Board on Aging in partnership with [place] [facility] Agencies on Aging. It is a free service of the [facility] that connects older [place] and their families with the help they need. Call the Senior LinkAge Line?? at: [phone] M-F, 8am-4:30pm to connect with specialists that are available to assist you with your specific needsor check out their website at https://www.Snapdeal.[employer] * Attachments The following attachments cannot be sent through Care Everywhere. * Cefdinir (By mouth) (South Sudanese) documented in this encounter Medications at Time [...] questions or concerns. Pager during business hours: [phone] Pager after hours: [phone] * Jeffery Valdez M.D. - 09/04/2023 10:34 [...] questions or concerns. Pager during business hours: [phone] Pager after hours: [phone] * Jeffery Valdez M.D. - 09/03/2023 4:10 [...] consider transitioning [facility] Summary: Diet: Regular Activity: [...] questions or concerns. Pager during business hours: [phone] Pager after hours: [phone] * Paula Hernandez M.D. - 09/02/2023 6:25 [...] questions or concerns. Pager during business hours: [phone] Pager after hours: [phone] * Michelle Willams R.N., C.W.C.N. - 09/01/2023 11:43 AM CDT [facility] Wound RN consulted to assess Kalen [...] Secondary Dressing Status Clean;Dry;Intact Changed by Wound spice blender Ongoing management Nursing;Wound/director of medical services Urine Assessment Urine Color Colorless Hematuria Scale Worth Urine Appearance Clear;Sediment Head to toe skin [...] update the patient. Son stated that a Scout Sniper visited the home and will be trying to assist both and patient with cares/coordination. OBJECTIVE Patient is located on [facility] room 111. Referrals were sent to the following agencies: Home Medical Care - Admitted Since 08/30/2023 Service Provider Request Status Selected Services Address Phone Fax Patient Preferred [facility] [place] Pending - Request Sent N/A [address] [facility] [address] [phone] -- [facility] Pending - Request Sent N/A [address] [facility] [address] -- Home Health Care Pending - Request Sent N/A [address] [facility] [address] -- [facility] Pending - Request Sent N/A [address] [facility] [phone] -- [facility] Pending - Request Sent N/A [address] [facility] [phone] -- [facility] Pending - Request Sent N/A [address] [facility] [address] [phone] -- [facility] Home Health Declined Facility Full N/A [address] [facility] [phone] -- ASSESSMENT / PLAN ASSESSMENT Disc Recordist attempted to contact patient on room phone but was unable to get through. Case Manageras able to reach his son who will update that patient that the preferred home health agency was unable to accept and that referrals would be sent to other home health agencies. Requested services arenursing for wound care and catheter and PT/OT. PLAN Disc Recordist will follow up with referrals. Case Manger [...] questions or concerns. Pager during business hours: [phone] Pager after hours: [phone] * Paula Hernandez M.D. - 08/31/2023 10:45 [...] risks associated with surgery and anesthesia including NH, stroke, and VTE were also discussed. Finally, [...] questions or concerns. Pager during business hours: [phone] Pager after hours: [phone] Associated attestation - Mayur Alvarez M.D. - 08/31/2023 12:14 PM CDT I agree with the Urology Chief Service plan for palliative cystoscopy under anesthesia, clot evacuation, proceed as indicated. We will plan for judicious irrigation given his recent bladder surgery and we will perform a cystogram at the end of the procedure. * Demarco Salazar, PharmJonahD., R.Ph., [facility] - 08/31/2023 7:19 AM CDT Images [...] discontinuation of antibiotics. Pedrito Salazar Pharm.D., R.Ph., [facility] Admission Medication History Note Adherence issues: [...] Complete Set By: Demarco Salazar Pharm.D., R.Ph., [facility] at 08/31/2023 7:22 AM Taking? Last [...] an 83 y.o. male transferred to the [facility] ED for further management of gross [...] for CBI. He was then transferred to [facility] on 08/12; a CT cystogram was [...] was initiated on CBI and transferred to [facility] for further management. On my initial [...] for radiation proctitis SOCIAL HISTORY Lives in [place], [place] OBJECTIVE Vitals Blood pressure 134/84, pulse [...] & Screen Expiration 09/02/2023 23:59 Testing Location [place] Imagin08/30/23 EXAM: US URINARY BLADDER COMPARISON: CT [...] hematuria, clot obstruction and was transferred to [facility] for further evaluation and management. Urinary bladder ultrasound showing 5 cm clot burden; catheter draining on fast-rate CBI after multiple rounds of hand irrigation. Plan - Continue CBI - Q2h hr hand irrigations - NPO overnight pending am re-evaluation - Hold Plavix, Xarelto for now The above was discussed with Drs. Venegas and Lefty, the chief urology residents control room supervisor. Please page chief Urology [place] [phone] during [place] [phone] afterhours. documented in this encounter Procedure Notes [...] on androgen deprivation therapy. 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 No scuba diving experience. Electronic health [...] Early Screen for Discharge Planning [facility] Reason: Discharge Planning Primary Language: [place]ese Manager Of Pharmacy Services Used: No Person(s) present during interview: [...] Communication: Can write, Talks, Understands speaking, Understands [place]ese, Reads Shopping: Needs assistance Medication Management: Independent Housekeeping: Needs assistance Meal Prep: Independent Assistive Devices: Walker - front wheeled, Eyeglasses, Hearing aid(s) Agency Name: [facility] Provided: Halfway/PT/OT Transportation: Support from family Baseline Services/Resources Primary care clinic and provider: ELSEWHERE, PCP Additional Resources: N/A Anticipated Needs Functional Status: Housekeeping, Shopping, Transportation use (drive car, use taxi/bus), Mobility, Transfer to/from bed, chair, etc., Bathing Assistive Devices: Eyeglasses, Hearing aid(s), Walker - front wheeled Services/Resources: Home health Agency Name: [facility] Provided: Halfway/PT/OT Anticipated Modifications to the Patient's Home: None Transportation Needs: Support from family Does the patient need discharge transport arranged?: No Anticipated Discharge Destination: Home-Health Care [facility] ASSESSMENT / PLAN Assessment: The psych social worker met with Kalen Vega to discuss his current hospitalization and home goingneeds. The patient was accompanied by son, Kar . The patient was a reliable historian. The role ofRN Disc Recordist was reviewed. The patient reviewed his prior level of care and support system. The patient receives support from his and children. The patient described his living environment as a home with bedroom and bathroom on same floor withstairs to enter with rails. Housekeeping, grocery shopping, meal prep, and other household responsibilities have previously been completed by patient and patient's son. psych social worker discussed the patient's potential needs at dismissal based on their home setting, previous needs and responsibilities, homebound status, and relevant assessments with the patient. The patient will be safe and supported to return home with [facility] or previous services noted above when [...] PICC removal he would not need care. Disc Recordist will clarifywith home health team regarding if [...] chart and meeting with the patient, the psych social worker deemed the LACE+/readmission questions were appropriate. The [...] current readmission could have been prevented. The psych social worker will share this information with the care team. The patient reports understanding that he will dismiss from the hospital when medically stable. Thefollowing potential barriers to dismissal have been identified: Home Health Care Addendum 1230: Disc Recordist called [facility]. They received the referral but declined due to being at capacity. Plan: The patient agrees with the following plan. Patient's anticipated discharge disposition is: Home with Home Healthcare Referrals sent. Transportation upon dismissal will be provided by family--Kar . psych social worker recommended home health services. psych social worker provided information regarding the dismissal process and the Senior Linkage Line ([place] Board on Aging) handout. psych social worker placed or requested the following hospital-based consult orders and/or referrals: None. psych social worker will follow up with the patient to [...] with updates and/or transition plan to come. psych social worker encouraged the patient to reach out with [...] CDT Pre-op Diagnosis Hematuria Post-op Diagnosis Hematuria Student Advisor A supply chain assistant actively participated and was necessary for [...] or filling defects. 5. Placement of [address] catheter with 20 cc in [...] The resectoscope was removed and a [address] catheter was placed with 20 [...] secondary to cystostomy closure presenting today from [facility] with concerns for worsening hematuria. He was [...] 8:48 AM CDT Pt transferred from [facility] via EMS, pt c/o blocked jon cath that started today. Pt had a right uretal stent exchange and an open bladder repair 08/15/23 and was discharged 08/25. Pt had a3 way jon placed at [facility], and transferred here because the clots returned. [...] RN, CPN, CCDS, CCS, CRC Clinical Documentation Block Placer Query created by: ELMER Barker, RN, CPN, [...] CDT Office Visit Department of Urology in [place], [place] [address] [place] [phone] Burke Strauss M.D. [address] [place] [address] Discharge Disposition: Home or Self Care Pending [...] Roxy Romero M.D. LAB BLOOD ADD-ON [facility] [address] [place] [address], [facility] DTL [facility] [address] [place] [address] * (ABNORMAL) Basic Metabolic Panel (09/05/2023 4:52 [...] Jakob De Paz M.D. LAB BLOOD ADD-ON [facility] [address] [place] [address], [place] [facility] [place] [address] [place] [address] * (ABNORMAL) Basic Metabolic Panel (09/04/2023 8:15 [...] CDT Jeffery Valdez M.D. LAB BLOOD ADD-ON [facility] [address] [place] [address], [facility] [address] [place] [address] * (ABNORMAL) CBC without Differential (09/04/2023 8:15 [...] CDT Jeffery Valdez M.D. LAB BLOOD ADD-ON [facility] [address] [place] [address], [facility] [address] [place] [address] * Transfuse Red Blood Cells : (09/04/2023 3:30 PM CDT) Jeffery Valdez M.D. BLOOD TRANSFUSION OR DERABLES * Transfuse Red Blood Cells : , 1 Units (09/04/2023 3:30 PM CDT) Jeffery Valdez M.D. BLOOD TRANSFUSION OR DERABLES * Type and Screen (with Reflex Antibody ID) (09/04/2023 10:59 AM CDT) [facility] ABORh O Pos Not applicable 09/04/2023 11:46 AM CDT STRM Antibody Screen Negative Negative 09/04/2023 11:59 AM CDT STRM Type & Screen Expiration 09/07/2023 23:59 09/04/2023 11:46 AM CDT STRM Testing Location [place] DEFAULT 09/04/2023 11:21 AM CDT STRM Blood (Blood, Venous) 09/04/2023 10:59 AM CDT 09/04/2023 11:21 AM CDT Jeffery Valdez M.D. LAB BLOOD BANK TEST ORDERABLES Performing Organization Address [facility] Co de Phone Number [facility] [address] [place] [address], [facility] STRM [address] [address] * Heparin Anti-Xa Assay (09/04/2023 7:34 AM [...] BLOOD NON A DD-ON Performing Organization Address [facility]/ZIP Co de Phone Number [facility] [address] [place] [address], [facility] [place] [address] [place] [address] * (ABNORMAL) CBC without Differential (09/04/2023 7:34 [...] LAB BLOOD ADD-ON Performing Organization Address [facility] [place] [address], [facility] [place] [address] * Heparin Anti-Xa Assay (09/04/2023 12:30 AM [...] Alvarez M.D. LAB BLOOD NON A DD-ON [facility] [address] [place], [place] [address] [address] [place] [address] * Bacterial Culture, Aerobic + Susceptibility, Urine (09/03/2023 10:50 AM CDT) [facility] Urine Culture No growth after 1 day of incubation. 09/04/2023 8:52 AM CDT DTL Urine (Urine, Indwelling Catheter) 09/03/2023 10:50 AM CDT 09/03/2023 11:53 AM CDT Comment:Specimen Source Site : Urine Jeffery Valdez M.D. LAB MICROBIOLOGY - G ENERAL ORDERABLES [facility] [address] [place], [place] [address] [place] [address] [address] [place] [address] * (ABNORMAL) CBC without Differential (09/03/2023 3:29 [...] Hernandez M.D. LAB BLOOD ADD-ON [facility] [address] [place] [address], [facility] [place] [address] [place] [address] * Heparin Anti-Xa Assay (09/03/2023 3:29 AM [...] BLOOD NON A DD-ON Performing Organization Address City/[facility]/ZIP Co de Phone Number [facility] [address] [place] [address], [facility] [place] [address] [place] [address] * Heparin Anti-Xa Assay (09/02/2023 2:57 AM [...] Alvarez M.D. LAB BLOOD NON A DD-ON [facility] [address] [place] [address], [facility] [place] [address] [place] [address] * (ABNORMAL) CBC without Differential (09/01/2023 8:16 [...] [facility]/ZIP Co de Phone Number [facility] [address] [place], [place] [address] [place] [address] * Heparin Anti-Xa Assay (09/01/2023 6:50 PM CDT) Heparin Anti-Xa, P 0.35 IU/mL 2023 7:47 PM CDT [facility] Comment: UFH therapeutic range: ?? 0.30-0.70 [...] BLOOD NON A DD-ON Performing Organization Address City/[facility]/ZIP Co de Phone Number [facility] [address] [place] [address], [address] [address] * APTT (Activated Partial Thromboplastin Time) (09/01/2023 9:05 AM CDT) Activated Partial Thrombopl Time, P 28 25 - 37 sec 09/01/2023 9:35 AM CDT [facility] Blood (Blood, Venous) 09/01/2023 9:05 AM CDT 09/01/2023 9:21 AM CDT Paula Hernandez M.D. LAB BLOOD ADD-ON Performing Organization Address City/[facility]/ZIP Co de Phone Number [facility] [address] [place] [address], [facility] STMA [facility] [address] [place] [address] * (ABNORMAL) Basic Metabolic Panel (08/31/2023 9:36 PM CDT) [facility] Potassium, S 4.0 3.6 - 5.2 [...] Hernandez M.D. LAB BLOOD ADD-ON [facility] [address] [place] [address], [facility] DTL [facility] [address] [place] [address] * (ABNORMAL) CBC without Differential (08/31/2023 9:36 [...] CDT Paula Hernandez M.D. [place] [address], [facility] [place] [address] [place] [address] * [place] Fluoro Less Than 1 Hour [...] * (ABNORMAL) Hemoglobin (08/31/2023 4:21 AM CDT) [facility] Hemoglobin 7.8(L) 13.2 - 16.6 g/dL 08/31/2023 4:47 AM CDT DTL Blood (Blood, Venous) 08/31/2023 4:21 AM CDT 08/31/2023 4:35 AM CDT Kimi Vieira M.D., M.S. LAB BLOO D ADD-ON Performing Organization Address [facility] Co de Phone Number [facility] [address] [place] [address] * Type and Screen (with Reflex Antibody ID) (08/30/2023 9:50 PM CDT) [facility] ABORh O Pos Not applicable [...] BLOOD BANK TEST ORDERABLES Performing Organization Address [facility] Co de Phone Number [facility] [address] STRM [facility] [address] [place] [address] * Lactate (08/30/2023 9:50 PM CDT) [facility] Lactate, P 1.8 0.5 - 2.2 mmol/L 08/30/2023 10:09 PM CDT [facility] Blood (Blood, Venous) 08/30/2023 9:50 PM CDT 08/30/2023 9:55 PM CDT Shannan Correa D.O., M.H.A. LAB BLOOD NON ADD-ON [facility] [address] [place] [address], [facility] STMA [facility] [address] [place] [address] * (ABNORMAL) Basic Metabolic Panel (08/30/2023 9:49 [...] Correa D.O., M.H.A. LAB BLOOD ADD- ON [facility] [address] [place] [address], [facility] STMA [facility] [address] [place] [address] * (ABNORMAL) CBC with Differential, Blood (08/30/2023 9:49 PM CDT) [facility] Hemoglobin [...] Correa D.O., M.H.A. LAB BLOOD ADD- ON [facility] [address] [place] [address], [place] STMA [facility] [address] [place] [address] [facility] [address] [place] [address] * DX Chest AP or PA and [...] CDT) Ventricular Rate ECG/Min 145 BPM MUSE MO Interval 136 ms MUSE QRSD Interval 64 ms MUSE QT Interval 260 ms MUSE QTC Interval 403 ms MUSE P Durand 44 degrees MUSE R Durand 9 degrees MUSE T Wave Durand -76 degrees MUSE 08/30/2023 7:44 PM CDT [...] give total of 40 mEq Dissolve per general magistrate recommendations. Do NOT chew or swallow tablet., [...] Sarah Morgan RNarendra - Reason: See Provider Order)1600 (Unheld by provider - Provider: Jeffery Valdez [...] give total of 40 mEq Dissolve per general magistrate recommendations. Do NOT chew or swallow tablet., [...] intravenous, As needed, antiXa 0.1-0.19, Starting on [facility] 09/03/23 at 1608, Intensity type: Moderate, Anti-Xa < 0.1: Loading Dose (Units/kg): 60, Anti-Xa 0.1-0.19: Loading Dose (Units/kg): 30, Anti-Xa > 0.19: Loading Dose (Units/kg): 0 Or heparin (porcine) 1,000 unit/mL injection 5,500 Units (CANCELED) 5,500 Units (rounded from 5,544 Units = 60 Units/kg ? 92.4 kg), intravenous, As needed, antiXa less than 0.1, Starting on [facility] 09/03/23 at 1608, Intensity type: Moderate, Anti-Xa [...] 2256 documented in this encounter Care Teams Real Estate Clerk Relationship Specialty Start Date End Date Elsewhere, Pcp PCP - General Internal Medicine 08/13/23 documented as of this encounter
--- OUTSIDE RECORDS SUMMARY | 2023-11-04 12:31 | XMS_ITS | Encounter Summary ---
Author Organization [facility] Address [address] [place] [address] Care Team Providers Care Clinic Mgr Name Role Phone Elsewhere, Pcp Primary Care Provider Unavailabl e Encounter Details Date Type Department Care Team (Late st Contact Info) Description 09/06/2023 Orders Only Section of Hyperbaric Medicine in [place], [place] [address] [place] [address] Kira Ferraro, ARUN, C.N.P., M.S.N. [address] [place] [address] Social History Tobacco Use Types Packs/Day Years [...] CDT Office Visit Department of Urology in [place], [place] [address] [place] [phone] Burke Strauss M.D. 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
--- OUTSIDE RECORDS SUMMARY | 2023-11-04 12:31 | XMS_ITS | Encounter Summary ---
Author Organization [facility] Address [address] [place] [address] Care Team Providers Care Drum Filler Name Role Phone Elsewhere, Pcp Primary Care Provider Unavailabl e Encounter Details Date Type Department Care Team (Late st Contact Info) Description 09/09/2023 Documentation Department of Urology in [place], [place] [address] [place] [address] Ko Victoria M.D. [address] [place] [address] Social History Tobacco Use Types Packs/Day Years Used Date Smoking Tobacco: Never Smokeless Tobacco: Never [facility] Utilities Answer Date Recorded In the past 12 months has [facility] [employer], gas, oil, or water [employer] threatened to shut off services in your [...] CDT Office Visit Department of Urology in [place], [place] [address] [place] [address] Burke Strauss M.D. [address] [place] [phone] Discharge Disposition: Home or Self Care documented as of this encounter Visit Diagnoses Not on filedocumented in this encounter Care Teams Drum Filler Relationship Specialty Start Date End Date Elsewhere, Pcp PCP - General Internal Medicine 08/13/23 documented as of this encounter
--- OUTSIDE RECORDS SUMMARY | 2023-11-04 12:31 | XMS_ITS | Encounter Summary ---
Author Organization [facility] Address [address] [place] [address] Care Team Providers Care Rn Sane Name Role Phone Elsewhere, Pcp Primary Care Provider Unavailabl e Encounter Details Date Type Department Care Team (Late st Contact Info) Description 09/06/2023 Clinical Communication [facility] [address] [place] [address] Yasmine Loco Social History Tobacco Use Types Packs/Day Years Used Date Smoking Tobacco: Never Smokeless Tobacco: Never C Utilities Answer Date Recorded In the past 12 months has [facility] [employer], gas, oil, or water [employer] threatened to shut off services [...] your living situation today? I have a [facility] place to live 09/09/2023 Sex and Gender Information Value Date Recorded Sex Assigned at Not on file Gender Identity Not on file Sexual Orientation Not on file documented as of this encounter Plan of Treatment Upcoming Encounters Date Type Department Care Team (Late st Contact Info) Description 11/09/2023 11:00 AM CDT Office Visit Department of Urology in [place], [place] [address] [place] [address] Burke Strauss M.D. [facility] [place] [phone] Discharge Disposition: Home or Self Care documented as of this encounter Visit Diagnoses Diagnosis Hematuria Gross- Primary documented in this encounter Care Teams Rn Sane Relationship Specialty Start Date End Date Elsewhere, Pcp PCP - General Internal Medicine 08/13/23 documented as of this encounter
--- OUTSIDE RECORDS SUMMARY | 2023-11-04 12:32 | XMS_ITS | Encounter Summary ---
Author Organization [facility] Address [address] [place] [address] Care Team Providers Care Lead Machinist Name Role Phone Elsewhere, Pcp Primary Care Provider Unavailabl e Encounter Details Date Type Department Care Team (Late st Contact Info) Description 08/31/2023 12:34 PM CDT Anesthesia Event [facility] MAIN OR [address] [place] [phone] Joe Stoll M.D. [address] [place] [phone] Benjamin Williamson APRN, SHOULDER PUNCHER [address] [place] [phone] Anesthesia Record Procedure Summary Procedure Name Responsible [...] Scar Tissue 08/23/23 0052 by Lisa Serrano [id number] Bladder Irrigation 08/15/23; 1143; Dr. De [...] 1402 08/31/23 1243 by Benjamin Williamson APRN, SHOULDER PUNCHER 08/31/23 1402 by Benjamin Williamson APRN, SHOULDER PUNCHER Indwelling Urinary Catheter Placement Date: 08/31/23; Placement [...] Never [facility] Utilities Answer Date Recorded In the past 12 months has [facility] [employer], oil, or water [employer] threatened to shut off services in [...] Procedure Summary Date: 08/31/23 Room / Location: [address] 01 530 / [facility] in [place], [place] Anesthesia Start: 1234 Anesthesia Stop: 1420 [...] Hematuria [R31.9] Pre-op diagnosis: Hematuria [R31.9] Location: RM OR 108 [address] 01 530 / [facility] in [place], [place] Providers: Mayur Alvarez M.D. Pertinent components [...] patient / legal guardian, or through an national sales; patient evaluated and approved for anesthesia / [...] CDT Office Visit Department of Urology in [place], [place] [address] [place] [phone] Burke Strauss M.D. [facility] [place] [phone] Discharge Disposition: Home or Self Care documented [...] mg documented in this encounter Care Teams Lead Machinist Relationship Specialty Start Date End Date Elsewhere, Pcp PCP - General Internal Medicine 08/13/23 documented as of this encounter
--- OUTSIDE RECORDS SUMMARY | 2023-11-04 12:32 | XMS_ITS | Encounter Summary ---
Author Organization [facility] Address [address] [place] [address] Care Team Providers Care Customer Operations Intern Name Role Phone Elsewhere, Pcp Primary Care Provider Unavailabl e Encounter Details Date Type Department Care Team (Late st Contact Info) Description 08/26/2023 Orders Only Department of Urology in [place], [place] [address] [place] [phone] Paula Hernandez M.D. [address] [place] [address] Social History Tobacco Use Types Packs/Day Years Used Date Smoking Tobacco: Never Smokeless Tobacco: Never [facility] Utilities Answer Date Recorded In the past 12 months has [facility] electric, gas, oil, or water [employer] threatened to shut off services in your [...] your living situation today? I have a [facility] place to live 08/13/2023 Sex and Gender Information Value Date Recorded Sex Assigned at Not on file Gender Identity Not on file Sexual Orientation Not on file documented as of this encounter Plan of Treatment Upcoming Encounters Date Type Department Care Team (Late st Contact Info) Description 11/09/2023 11:00 AM CDT Office Visit Department of Urology in [place], [place] [address] [place] [address] Burke Strauss M.D. [address] [place] [phone] Discharge Disposition: Home or Self Care documented as of this encounter Visit Diagnoses Not on filedocumented in this encounter Care Teams Customer Operations Intern Relationship Specialty Start Date End Date Elsewhere, Pcp PCP - General Internal Medicine 08/13/23 documented as of this encounter
--- OUTSIDE RECORDS SUMMARY | 2023-11-04 12:32 | XMS_ITS | Encounter Summary ---
Author Organization [facility] Address [address] [place] [address] Care Team Providers Care Material Control Associate Name Role Phone Elsewhere, Pcp Primary Care Provider Unavailabl e Encounter Details Date Type Department Care Team (Late st Contact Info) Description 08/31/2023 12:25 PM CDT Ancillary Procedure Department of General Surgery Social History Tobacco Use Types Packs/Day Years Used Date Smoking Tobacco: Never Smokeless Tobacco: Never [facility] Utilities Answer Date Recorded In the past 12 months has e electric, gas, oil, or water [employer] threatened to shut off services in your [...] a [facility] place to live 08/13/2023 Sex and Gender Information Value Date Recorded Sex Assigned at Not on file Gender Identity Not on file Sexual Orientation Not on file documented as of this encounter Plan of Treatment Upcoming Encounters Date Type Department Care Team (Late st Contact Info) Description 11/09/2023 11:00 AM CDT Office Visit Department of Urology in [place], [place] [address] [place] [address] Burke Strauss M.D. [address] [place] [phone] Discharge Disposition: Home or Self Care documented [...] on filedocumented in this encounter Care Teams Material Control Associate Relationship Specialty Start Date End Date Elsewhere, Pcp PCP - General Internal Medicine 08/13/23 documented as of this encounter
--- OUTSIDE RECORDS SUMMARY | 2023-11-04 12:32 | XMS_ITS | Encounter Summary ---
Author Organization [facility] Address [address] [place] [address] Care Team Providers Care Optical Laboratory Mechanic Name Role Phone Elsewhere, Pcp Primary Care Provider Unavailabl e Reason for Visit * Reason Comments Urinary Problem Rapid Heart Rate Encounter Details Date Type Department Care Team (Late st Contact Info) Description 08/31/2023 12:36 PM CDT - 08/31/2023 2:31 PM CDT Surgery RST ROMB MAIN OR [address] [place] [address] Mayur Alvarez M.D. [address] [place] [address] CYSTOSCOPY EVACUATION CLOTS Social History Tobacco Use [...] your living situation today? [facility] 08/13/2023 Sex and [...] PM CDT DISCHARGE SUMMARY BRIEF OVERVIEW Hospital: [facility] Discharge Provider: Mayur Alvarez M.D. [...] CYSTOGRAM Mayur Alvarez M.D.White, Lindsay A, M.D. [facility] ROMB OR DISCHARGE DISPOSITION Home-Health Care [facility] [6] ACTIVE ISSUES REQUIRING FOLLOW UP OUTPATIENT [...] CONSULT TO CARE MANAGEMENT IP CONSULT TO CAGER OPERATOR WOUND CARE IP CONSULT TO HYPERBARIC MEDICINE CONDITION AT DISCHARGE improved Discharge instructions were provided to the patient and caregiver(s). documented in this encounter Discharge Instructions * Patient Instructions* Carmen Louis, R.N. - 08/31/2023 9:44 AM CDT The Senior LinkAge Line?? is a service of the [place] Board on Aging in partnership with [place]'s Area Agencies on Aging. It is a free service of the [facility] that connects older Indianans and their families with the help they need. Call the Senior LinkAge Line?? at: [phone] M-F, 8am-4:30pm to connect with specialists that are available to assist you with your specific needsor check out their website at https://www.Next 2 Greatness.com * Attachments The following attachments cannot be sent through Care Everywhere. * Cefdinir (By mouth) (Czech) documented in this encounter Medications at Time [...] questions or concerns. Pager during business hours: [phone] Pager after hours: [phone] * Jeffery Valdez M.D. - 09/04/2023 10:34 [...] questions or concerns. Pager during business hours: [phone] Pager after hours: [phone] * Jeffery Valdez M.D. - 09/03/2023 4:10 [...] [facility]: Diet: Regular Activity: Ad kong [...] questions or concerns. Pager during business hours: [phone] Pager after hours: [phone] * Paula Hernandez M.D. 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 Pager during business hours: [phone] Pager after hours: [phone] * Michelle Willams, Terri., C.W.C.N. - 09/01/2023 11:43 AM CDT [facility] Wound RN consulted to assess Kalen [...] Secondary Dressing Status Clean;Dry;Intact Changed by Wound metal stamping machine operator Ongoing management Nursing;Wound/physician office assistant Urine Assessment Urine Color Colorless Hematuria Scale Kenedy Urine Appearance Clear;Sediment Head to toe skin [...] nursing. They agree to the plan. The [facility] RN will continue to see the [...] update the patient. Son stated that a Radiation Therapist visited the home and will be trying to assist both and patient with cares/coordination. OBJECTIVE Patient is located [facility] room 111. Referrals were sent to the following agencies: Home Medical Care - Admitted Since 08/30/2023 Service Provider Request Status Selected Services Address Phone Fax Patient [facility] - [place] Pending - Request Sent N/A [address], [facility] [phone] -- [facility] Home Care Pending - Request Sent N/A [address], [facility] [address] [phone] -- Home Health Care Pending - Request Sent N/A [address], [facility] [address] -- [facility] Pending - Request Sent N/A [address] [facility] [phone] -- [facility] Pending - Request Sent N/A [address] [facility] [address] [phone] -- [facility] Pending - Request Sent N/A [address] [facility] [address], [facility] [address] [phone] -- [facility] Home Health Declined Facility Full N/A [address] [facility] [phone] -- ASSESSMENT / PLAN ASSESSMENT Granite Worker attempted to contact patient on room phone but was unable to get through. Case Manageras able to reach his son who will update that patient that the preferred home health agency was unable to accept and that referrals would be sent to other home health agencies. Requested services arenursing for wound care and catheter and PT/OT. PLAN Granite Worker will follow up with referrals. Case Manger [...] questions or concerns. Pager during business hours: [phone] Pager after hours: [phone] * Paula Hernandez M.D. - 08/31/2023 10:45 [...] questions or concerns. Pager during business hours: [phone] Pager after hours: [phone] Associated attestation - Mayur Alvarez M.D. - 08/31/2023 12:14 PM CDT I agree with the Urology Chief Service plan for palliative cystoscopy under anesthesia, clot evacuation, proceed as indicated. We will plan for judicious irrigation given his recent bladder surgery and we will perform a cystogram at the end of the procedure. * Demarco Salazar Pharm.D., R.Ph., [facility] - 08/31/2023 7:19 AM CDT Images [...] discontinuation of antibiotics. Pedrito Salazar Pharm.D., R.Ph., [facility] Admission Medication History Note Adherence issues: [...] Complete Set By: Demarco Salazar Pharm.D., R.Ph., [facility] at 08/31/2023 7:22 AM Taking? Last Dose [...] y.o. male transferred to the [facility] ED for further management of gross hematuria. [...] He was then transferred to [facility] on 08/12; a CT cystogram was performed [...] on CBI and transferred to [facility] for further management. On my initial evaluation [...] for radiation proctitis SOCIAL HISTORY Lives in [place], [place] OBJECTIVE Vitals Blood pressure 134/84, pulse [...] & Screen Expiration 09/02/2023 23:59 Testing Location [place] Imagin08/30/23 EXAM: US URINARY BLADDER COMPARISON: CT [...] symptomatic radiation cystitis and radiation proctitis. On 05/03 he suffered hematuria, clot obstruction, intraperitoneal bladder [...] obstruction and was transferred to [facility] for further evaluation and management. Urinary bladder ultrasound showing 5 cm clot burden; catheter draining on fast-rate CBI after multiple rounds of hand irrigation. Plan - Continue CBI - Q2h hr hand irrigations - NPO overnight pending am re-evaluation - Hold Plavix, Xarelto for now The above was discussed with Drs. Venegas and Lefty, the chief urology residents button reclaimer. Please page chief Urology [place] [phone] [place] [phone] afterhours. documented in this encounter Procedure Notes * Leonardo Kellogg R.N. - 08/30/2023 8:00 PM CDT Procedures documented in this encounter Consult Notes * Kelvin Dunlap M.B.BJonahSJonah, M.P.H. - 09/01/2023 6:54 AM CDTAssociated Order(s): [...] deprivation therapy. 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 [...] prolonged inpatient stay, would request transfer to [facility] prior to initiation of hyperbaric oxygen [...] 11 Referral Reason: Discharge Planning Primary Language: Czech Power Shovel Operator Services Used: No Person(s) present during interview: Person(s) Present During Interview: patient and child Kar History of Present Illness #1 Hematuria Social History Support System: spouse, children, and home care staff Primary Caregiver: self and family Finance/Insurance Primary insurance: MEDICARE A AND B Secondary insurance: NextCloudA benefits: No Advance Directives Legal Decision Maker: Self Advance Directives: N/A Advance Directives Status: N/A OBJECTIVE Baseline Functional Status Baseline Activities of Daily Living Mobility: Requires aide of device Dressing: Independent Feeding: Independent Bathing: Independent Grooming: Independent Toileting: Independent Behavior: Appropriate, Pleasant, Calm, Cooperative, Oriented Communication: Can write, Talks, Understands speaking, Understands Czech, Reads Shopping: Needs assistance Medication Management: Independent Housekeeping: Needs assistance Meal Prep: Independent Assistive Devices: Walker - front wheeled, Eyeglasses, Hearing aid(s) Agency Name: [email or web address] Health Services Provided: Senior Living/PT/OT Transportation: Support from family Baseline Services/Resources Primary care clinic and provider: ELSEWHERE, PCP Additional Resources: N/A Anticipated Needs Functional Status: Housekeeping, Shopping, Transportation use (drive car, use taxi/bus), Mobility, Transfer to/from bed, chair, etc., Bathing Assistive Devices: Eyeglasses, Hearing aid(s), Walker - front wheeled Services/Resources: Home health Agency Name: [facility] Provided: Senior Living/PT/OT Anticipated Modifications to the Patient's Home: None Transportation Needs: Support from family Does the patient need discharge transport arranged?: No Anticipated Discharge Destination: Home-Health Care [facility] ASSESSMENT / PLAN Assessment: The senior engineering manager met with Kalen Vega to discuss his current hospitalization and home goingneeds. The patient was accompanied by son, Kar . The patient was a reliable historian. The role ofRN Granite Worker was reviewed. The patient reviewed his prior level of care and support system. The patient receives support from his and children. The patient described his living environment as a home with bedroom and bathroom on same floor withstairs to enter with rails. Housekeeping, grocery shopping, meal prep, and other household responsibilities have previously been completed by patient and patient's son. senior engineering manager discussed the patient's potential needs at dismissal based on their home setting, previous needs and responsibilities, homebound status, and relevant assessments with the patient. The patient will be safe and supported to return home with [facility] or previous services noted above when medically [...] PICC removal he would not need care. Granite Worker will clarifywith home health team regarding if [...] chart and meeting with the patient, the senior engineering manager deemed the LACE+/readmission questions were appropriate. The [...] current readmission could have been prevented. The senior engineering manager will share this information with the care team. The patient reports understanding that he will dismiss from the hospital when medically stable. Thefollowing potential barriers to dismissal have been identified: Home Health Care Addendum 1230: [facility] received the [facility] but declined due to being at capacity. Plan: The patient agrees with the following plan. Patient's anticipated discharge disposition is: Home with Home Healthcare Referrals sent. Transportation upon dismissal will be provided by family--Kar . senior engineering manager recommended home health services. senior engineering manager provided information regarding the dismissal process and the Senior Linkage Line ([place] Board on Aging) handout. senior engineering manager placed or requested the following hospital-based consult orders and/or referrals: None. senior engineering manager will follow up with the patient to [...] with updates and/or transition plan to come. senior engineering manager encouraged the patient to reach out with [...] CDT Pre-op Diagnosis Hematuria Post-op Diagnosis Hematuria Launderette Attendant A social work assistant actively participated and was necessary for [...] or filling defects. 5. Placement of [address] catheter with 20 cc in [...] The resectoscope was removed and a [address] catheter was placed with 20 [...] secondary to cystostomy closure presenting today from [place] with concerns for worsening hematuria. He was [...] 08/30/2023 8:48 AM CDT Pt transferred from [facility] via EMS, pt c/o blocked jon cath that started today. Pt had a right uretal stent exchange and an open bladder repair 08/15/23 and was discharged 08/25. Pt had a3 way jon placed at [place], and transferred here because the clots returned. [...] RN, CPN, CCDS, CCS, CRC Clinical Documentation Data Librarian Query created by: ELMER Barker, RN, [...] CDT Office Visit Department of Urology in [place], [place] [address] [place] [phone] Burke Strauss M.D. [address] [place] [phone] Discharge Disposition: Home or Self Care Pending [...] BLOOD ADD-ON [facility] [address] [place] [address], [facility] [address] [place] [address] * (ABNORMAL) Basic Metabolic Panel (09/05/2023 4:52 [...] BLOOD ADD-ON [facility] [address] [place] [address], [facility] [address] [place] [address] * (ABNORMAL) Basic Metabolic Panel (09/04/2023 8:15 [...] BLOOD ADD-ON [facility] [place] [address] [place] [address], [facility] [address] [address] * (ABNORMAL) CBC without Differential (09/04/2023 8:15 [...] - 317 x10(9)/L 09/04/2023 9:19 PM CDT [facility] Leukocytes 7.5 3.4 - 9.6 x10(9)/L 09/04/2023 9:19 PM CDT [facility] Blood (Blood, Venous) 09/04/2023 8:15 PM CDT 09/04/2023 8:52 PM CDT Jeffery Valdez M.D. LAB BLOOD ADD-ON [facility] [address] [place] [address], [facility] [address] [place] [address] * Transfuse Red Blood Cells : (09/04/2023 3:30 PM CDT) Jeffery Valdez M.D. BLOOD TRANSFUSION OR DERABLES * Transfuse Red Blood Cells : , 1 Units (09/04/2023 3:30 PM CDT) Jeffery Valdez M.D. BLOOD TRANSFUSION OR DERABLES * Type and Screen (with Reflex Antibody ID) (09/04/2023 10:59 AM CDT) [facility] O Pos Not applicable 09/04/2023 11:46 AM CDT STRM Antibody Screen Negative Negative 09/04/2023 11:59 AM CDT STRM Type & Screen Expiration 09/07/2023 23:59 09/04/2023 11:46 AM CDT STRM Testing Location [place] DEFAULT 09/04/2023 11:21 AM CDT STR Blood (Blood, Venous) 09/04/2023 10:59 AM CDT 09/04/2023 11:21 AM CDT Jeffery Valdez M.D. LAB BLOOD BANK TEST ORDERABLES [facility] [address] [place] [address], [facility] [address] [place] [address] * Heparin Anti-Xa Assay (09/04/2023 7:34 AM CDT) Pathologist [facility] Heparin Anti-Xa, P 0.12 IU/mL 2023 [...] Alvarez M.D. LAB BLOOD NON A DD-ON [address] [address], [facility] [address] [place] [address] * (ABNORMAL) CBC without Differential (09/04/2023 7:34 AM CDT) Pathologist [facility] Hemoglobin 7.7(L) 13.2 - 16.6 g/dL 09/04/2023 [...] AM CDT 09/04/2023 8:06 AM CDT Paula Hernandze M.D. LAB BLOOD ADD-ON Performing Organization Address City/[facility] Co de Phone Number [facility] [address] [place], [place] [address] [place] [address] [address] [place] [address] * Heparin Anti-Xa Assay (09/04/2023 12:30 AM [...] BLOOD NON A DD-ON Performing Organization Address [facility] Co de Phone Number [facility] [address] [place] [address], [facility] [address] [place] [address] * Bacterial Culture, Aerobic + Susceptibility, Urine (09/03/2023 10:50 AM CDT) [facility] Urine Culture No growth after 1 day of incubation. 09/04/2023 8:52 AM CDT DTL Urine (Urine, Indwelling Catheter) 09/03/2023 10:50 AM CDT 09/03/2023 11:53 AM CDT Comment:Specimen Source Site : Urine Jeffery Valdez M.D. LAB MICROBIOLOGY - G ENERAL ORDERABLES Performing Organization Address [facility] Co de Phone Number [facility] [address] [place], [place] [phone] [place] [address] DTL [facility] [address] [place] [address] * (ABNORMAL) CBC without Differential (09/03/2023 3:29 AM CDT) [facility] Hemoglobin 8.0(L) 13.2 - 16.6 g/dL 09/03/2023 [...] M.D. LAB BLOOD ADD-ON Performing Organization Address City/[facility]/ZIP Co de Phone Number [facility] [address] [place], [place] [address] [address] [place] [address] * Heparin Anti-Xa Assay (09/03/2023 3:29 AM CDT) Pathologist [facility] Heparin Anti-Xa, P 0.26 IU/mL 2023 4:07 [...] Alvarez M.D. LAB BLOOD NON A DD-ON [facility] [address] [place], [place] [phone] [place] [address] [address] [place] [address] * Heparin Anti-Xa Assay (09/02/2023 2:57 AM CDT) [facility] Heparin Anti-Xa, P 0.24 IU/mL 2023 4:09 [...] BLOOD NON A DD-ON Performing Organization Address [facility] Co de Phone Number [facility] [address] [place] [address], [facility] DTL [facility] [address] [place] [address] * (ABNORMAL) CBC without Differential (09/01/2023 8:16 PM CDT) [facility] Hemoglobin 8.5(L) 13.2 - 16.6 g/dL 09/01/2023 [...] M.D. LAB BLOOD ADD-ON Performing Organization Address City/[facility]/ZIP Co de Phone Number [facility] [address] [place] [address], [facility] DTL [facility] [address] [place] [address] * Heparin Anti-Xa Assay (09/01/2023 6:50 PM [...] A DD-ON Performing Organization Address City/[facility]/ZIP Co de Phone Number [facility] [address] [place] [address], [facility] DTL [facility] [address] [place] [address] * APTT (Activated Partial Thromboplastin Time) (09/01/2023 9:05 AM CDT) Pathologist [facility] Activated Partial Thrombopl Time, P 28 25 - 37 sec 09/01/2023 9:35 AM CDT [facility] Blood (Blood, Venous) 09/01/2023 9:05 AM CDT 09/01/2023 9:21 AM CDT Paula Hernandez M.D. LAB BLOOD ADD-ON [facility] [address] [place] [address], [facility] STMA [address] [address] * (ABNORMAL) Basic Metabolic Panel (08/31/2023 9:36 [...] BLOOD ADD-ON [facility] [address] [place] [address], [facility] [address] [place] [address] * (ABNORMAL) CBC without Differential (08/31/2023 9:36 [...] CDT Paula Hernandez M.D. LAB BLOOD ADD-ON [facility] [address] [place] [address], [facility] DTL [facility] [address] [place] [address] * [place] Fluoro Less Than 1 Hour [...] Vieira M.D., M.S. LAB BLOO D ADD-ON [facility] [address] [place] [address], [facility] DTL [facility] [address] [place] [address] * Type and Screen (with Reflex Antibody ID) (08/30/2023 9:50 PM CDT) Pathologist [facility] ABORh O Pos Not applicable 08/30/2023 10:17 PM CDT STRM Antibody Screen Negative Negative 08/30/2023 10:31 PM CDT STRM Type & Screen Expiration 09/02/2023 23:59 08/30/2023 10:17 PM CDT STRM Testing Location [place] DEFAULT 08/30/2023 9:58 PM CDT STRM Blood (Blood, Venous) 08/30/2023 9:50 PM CDT 08/30/2023 9:58 PM CDT Shannan Correa D.O., M.H.A. LAB BLOOD BANK TEST ORDERABLES Performing Organization Address City/[facility] Co de Phone Number [facility] [address] [place] [address], [facility] STRM [facility] [address] [place] [address] * Lactate (08/30/2023 9:50 PM CDT) Pathologist [facility] Lactate, P 1.8 0.5 - 2.2 mmol/L 08/30/2023 10:09 PM CDT [facility]MA Blood (Blood, Venous) 08/30/2023 9:50 PM CDT 08/30/2023 9:55 PM CDT Shannan N Eggum D.O., M.H.A. LAB BLOOD NON ADD-ON [facility] [address] [place] [address], [facility] STMA [facility] [address] [place] [address] * (ABNORMAL) Basic Metabolic Panel (08/30/2023 9:49 PM CDT) Pathologist [facility] Potassium, P 3.6 3.6 - 5.2 [...] Correa D.O., M.H.A. LAB BLOOD ADD- ON [facility] [address] STMA [facility] [address] [place] [address] * (ABNORMAL) CBC with Differential, Blood (08/30/2023 [...] Correa D.O., M.H.A. LAB BLOOD ADD- ON [facility] [address] [place] [address], [place] STMA [facility] [address] [place] [address] [facility] [address] [place] [address] * DX Chest AP or PA and [...] CDT) Ventricular Rate ECG/Min 145 BPM MUSE [place] Interval 136 ms MUSE QRSD Interval 64 ms MUSE QT Interval 260 ms MUSE QTC Interval 403 ms MUSE P [place] 44 degrees MUSE R [place] 9 degrees MUSE T Wave [place] -76 degrees MUSE 08/30/2023 7:44 PM CDT [...] Sarah Morgan RJonahNJonah - Reason: See Provider Order)0111 (Unheld by provider - Provider: Jeffery Valdez M.D.) 0812 (Given - Provider: Tayler Espinoza R.N.) 0911 (Given - Provider: Vanessa Leo R.N.) clopidogreL tablet 75 mg (PLAVIX) 75 mg, oral, Daily, First dose on 5/27/24 at 0900 0911 (Given - Provider: Vanessa [...] give total of 40 mEq Dissolve per blade changer recommendations. Do NOT chew or swallow tablet., [...] (New Bag - Provider: Sarah Morgan RJonahNJonah) 0508 (New Bag - Provider: Gaye Dillard R.N.)0957 (Stopped - Provider: Joy Jackson R.N.) NaCl [...] antiXa less than 0.1, Starting on [facility] 09/03/23 at 1608, Intensity type: [...] 2256 documented in this encounter Care Teams Optical Laboratory Mechanic Relationship Specialty Start Date End Date Elsewhere, Pcp PCP - General Internal Medicine 08/13/23 documented as of this encounter
--- OUTSIDE RECORDS SUMMARY | 2023-11-04 12:32 | XMS_ITS | Encounter Summary ---
Author Organization [facility] Address [address] [place] [address] Care Team Providers Care Gardener Florist Name Role Phone Elsewhere, Pcp Primary Care Provider Unavailabl e Encounter Details Date Type Department Care Team (Late st Contact Info) Description 08/30/2023 Documentation Department of Urology in [place], [place] [address] [place] [address] Corin Ring M.D. [address] [place] [address] Social History Tobacco Use Types Packs/Day Years Used Date Smoking Tobacco: Never Smokeless Tobacco: Never [facility] Utilities Answer Date Recorded In the past 12 months has [facility] [employer], gas, oil, or water [employer] threatened to shut off services in [...] CDT Office Visit Department of Urology in [place], [place] [address] [place] [phone] Burke Strauss M.D. [address] [place] [address] Discharge Disposition: Home or Self Care documented as of this encounter Visit Diagnoses Not on filedocumented in this encounter Care Teams Gardener Florist Relationship Specialty Start Date End Date Elsewhere, Pcp PCP - General Internal Medicine 08/13/23 documented as of this encounter
--- OUTSIDE RECORDS SUMMARY | 2023-11-04 12:32 | XMS_ITS | Encounter Summary ---
Author Organization [facility] Address [address] [place] [address] Care Team Providers Care Glue Spreader Name Role Phone Elsewhere, Pcp Primary Care Provider Unavailabl e Encounter Details Date Type Department Care Team (Late st Contact Info) Description 09/01/2023 10:05 AM CDT Ancillary Procedure Department of Nursing Social History Tobacco Use Types Packs/Day Years Used Date Smoking Tobacco: Never Smokeless Tobacco: Never [facility] Utilities Answer Date Recorded In the past 12 months has e electric, gas, oil, or water [employer] threatened to shut off services in your [...] CDT Office Visit Department of Urology in [place], [place] [address] [place] [address] Burke Strauss M.D. [address] [place] [address] Discharge Disposition: Home or Self Care documented [...] on filedocumented in this encounter Care Teams Glue Spreader Relationship Specialty Start Date End Date Elsewhere, Pcp PCP - General Internal Medicine 08/13/23 documented as of this encounter
--- OUTSIDE RECORDS SUMMARY | 2023-11-04 12:32 | XMS_ITS | Encounter Summary ---
Author Organization [facility] Address [address] [place] [address] Care Team Providers Care Mechanical Technologist Name Role Phone Elsewhere, Pcp Primary [...] CDT Office Visit Department of Urology in [place], [place] [address] [place] [address] Burke Strauss M.D. 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
--- OUTSIDE RECORDS SUMMARY | 2023-11-04 12:33 | XMS_ITS | Encounter Summary ---
Author Organization [facility] Address [address] [place] [address] Care Team Providers Care Transportation Coordinator Name Role Phone Elsewhere, Pcp Primary [...] has e electric, gas, oil, or water [employer] threatened to shut off services in your [...] living situation today? I have a [facility] place to live 08/13/2023 Sex and Gender Information Value Date Recorded Sex Assigned at Not on file Gender Identity Not on file Sexual Orientation Not on file documented as of this encounter Plan of Treatment Upcoming Encounters Date Type Department Care Team (Late st Contact Info) Description 11/09/2023 11:00 AM CDT Office Visit Department of Urology in [place], [place] [address] [place] [address] Burke Strauss M.D. [address] [place] [address] Discharge Disposition: Home or Self Care documented [...] on filedocumented in this encounter Care Teams Transportation Coordinator Relationship Specialty Start Date End Date Elsewhere, Pcp PCP - General Internal Medicine 08/13/23 documented as of this encounter
--- OUTSIDE RECORDS SUMMARY | 2023-11-04 12:33 | XMS_ITS | Encounter Summary ---
Author Organization [facility] Address [address] [place] [address] Care Team Providers Care Nuclear Reactor Technician Name Role Phone Elsewhere, Pcp Primary Care Provider Unavailabl e Encounter Details Date Type Department Care Team (Latest Contact Info) Description 08/13/2023 3:42 PM CDT - 08/26/2023 4:11 PM CDT Hospital Encounter [facility], Sixth Floor [address] [place] [address] Darnell Garcia M.D. [address] [place] [address] Boubacar Brock M.D. [address] [place] [address] Decline Functional Status [R53.81] (Primary Dx); Hematuria [R31.9] Discharge Disposition: Home or Self Care Social History Tobacco Use Types Packs/Day Years Used Date Smoking Tobacco: Never Smokeless Tobacco: Never [facility] Utilities Answer Date Recorded In [...] AM CDT DISCHARGE SUMMARY BRIEF OVERVIEW Hospital: [facility] Discharge Provider: Boubacar Brock M.D. Primary Team: [facility] Urology Surgery - Chief Helga - Bob [...] M.D.Wen, Lexiaochuan, M.D.Premo, Hayley, M.D.Botkin, Hannah, M.D. [facility] ROMB OR DISCHARGE DISPOSITION Home or Self Care [1] ACTIVE ISSUES REQUIRING FOLLOW UP OUTPATIENT FOLLOW UP Scheduled Appointments 08/26/2023 1:00 PM KESHIA VERAS [facility] Radiology For appointment details refer to [...] he felt completely obstructed and presented to [place] [facility]. [place] Course Attempted Tabares insertion but bladder irrigation was unsuccessful on multiple attempts. Hung 1U pRBC's. Given some volume and transferred to [facility] ICU ICU Course Urology consulted and [...] CONSULT TO NUTRITION SUPPORT IP CONSULT TO DIRECTOR OF BUSINESS CONTINUITY WOUND CARE CONDITION AT DISCHARGE stable Discharge [...] he felt completely obstructed and presented to [place] [facility]. [place] Course Attempted Atbares insertion but bladder irrigation was unsuccessful on multiple attempts. Hung 1U pRBC's. Given some volume and transferred to [facility] ICU ICU Course Urology consulted and [...] PM CDT You were discharged from the [facility] Urology Surgery - Chief A - Blue Service. Please identify this service name if you call with questions after hospitalization. * Attachments The following attachments cannot be sent through Care Everywhere. * Bacitracin (On the skin) (Afghan) * Cefdinir (By mouth) (Afghan) * Trospium (By mouth) (Afghan) documented in this encounter Medications at Time [...] Progress Notes * Emeterio Buchanan P.T., D.P.T., [facility] - 08/26/2023 4:27 PM CDT 08/26/23 8877 Reason Therapy Missed Reason Therapy Missed Receiving other care Attempted to see patient twice today. On 1st attempt patient was receiving blood transfusion and RNwas working on completing cares with him. On 2nd attempt patient was with another provider. * Chary Diamond M.A., O.T., [facility] - 08/26/2023 10:21 AM CDT Occupational Therapy [facility] Inpatient Treatment SUBJECTIVE Patient's Name: Kalen Vega Referring/Attending Provider: Boubacar Brock M.D. Reason for Referral: Occupational Therapy Evaluation and Treatment History of Present Illness: Kalen Vega is a 83 y.o. male who was admitted to [facility] in [place] on 08/13/2023 for Hematuria [R31.9]. Precautions Other Precautions: Abdominal, fall precautions, monitor tachycardia and hypertension Pain Assessment: Pain not reported during session. Subjective Comments: Agreeable to therapy session. Team Communication: The patient's status was discussed and coordination of care occurred with RN, Family/Caregiver, nurse tech Family/Caregiver Present: son and [id number] OBJECTIVE Vital Signs: Vitals not formally assessed during session. No concerns during chart review and the patient had nosigns or symptoms consistent with vital changes during therapy session. Outcome Measures: [facility] Inpatient Short Form: Putting [...] at or below 17 Clinicians answer the [facility] Inpatient Short Form based [...] through pant leg first. - Adaptive Equipment: Station Detective TOILETING - Assist Level: Maximal Assist - [...] (Edge of bed) - Assist Level: Modified Person - Equipment: bed rail - Therapist Delivery: assessed, instructed, assisted - Adaptive Equipment: leg plant biology professor trialed ; however, patient able to move [...] extremity (stiff knee) first. Recommended adaptive equipment: Station Detective. Toileting - Patient instructed on accurate positioning [...] maximal exertion Handouts provided: Bathroom Safety Equipment [id number], Techniques to Help You Save Energy [id number] Patient was left in bedside chair with [...] health care OBJECTIVE Patient is admitted in [facility] 6[facility] -room 121 ASSESSMENT / PLAN LENS MOLD SETTERwelfare manager met with patient and son Kar to inform them of home health care acceptance for PT/OT. Patient's son Kar and [id number] will provide transportation at the time of discharge. PLAN Patient to discharge home with home health care. Home Medical Care - Admitted Since 08/13/2023 Service Provider Selected Services Address Phone Fax Patient Preferred [facility] [address] [facility] [address] -- Waste Recycler: Ghazal NURSING: - Complete documentation in the Discharge Navigator including Nursing Report Info and Facility/NextLevel of Care Info - Call report and arrange for the patient's first visit - Send After Visit Summary and required packet of dismissal information with patient, including advance directive. PRIMARY SERVICE: - Please provide a non-[place] home health order for: physical therapy and [...] be provided by family--patient's son Kar and [id number]. 3. service agent recommended reaching out to family, friends, and neighbors for assistance. 4. service agent provided information regarding the dismissal process. Damaris [...] #1 Hematuria Please page [facility] ([phone]) or [facility] ([phone]) Nutrition Support Service pager with questions. * Emeterio Buchanan PMarlon., D.P.T., [facility] - 08/25/2023 9:35 AM CDT Physical Therapy Inpatient Treatment SUBJECTIVE Patient's Name: Kalen Vega Referring/Attending Provider: Boubacar Brock M.D. Reason for Referral: Physical Therapy Evaluate and Treat History of Present Illness: Kalen Vega is a 83 y.o. male who was admitted to [facility] in [place] on 08/13/2023 for Hematuria [R31.9] Precautions Other [...] fit with adult there which they usually [place] with a difference educated fully know who [...] - 08/25/2023 9:18 AM CDT Occupational Therapy [facility] Inpatient Treatment SUBJECTIVE Patient's Name: Kalen Vega Referring/Attending Provider: Boubacar Brock M.D. Reason for Referral: Occupational Therapy Evaluation and Treatment History of Present Illness: Kalen Vega is a 83 y.o. male who was admitted to [facility] in [place] on 08/13/2023 for Hematuria [R31.9]. Precautions Other Precautions: Abdominal, fall precautions, monitor tachycardia and hypertension Pain Assessment: Pain not reported during session. Subjective Comments: Agreeable to therapy session. Team Communication: The patient's status was discussed and coordination of care occurred with RN, PT OBJECTIVE Vital Signs: Vitals monitored throughout session; within normal ranges. Outcome Measures: [facility] Inpatient Short Form: Putting [...] at or below 17 Clinicians answer the [facility] Inpatient Short Form based [...] including figure four technique. Recommended adaptive equipment: Station Detective and Sock Aid. Toileting - Patient instructed [...] and modification tools as needed including leg plant biology professor and/or bed adjustments. Bathroom DME: - Educated [...] in place draining clear yellow urine I/O ([id number]): Fifty-five cc serosanguineous from the drain 1 [...] 2.5 mg BID eliquis initiated 08/15 per [facility] med curbside recs --transition from eliquis [...] have him follow up with his local special effects makeup artist Comorbidities: --history of DVT status post IVC [...] discussed with Dr. Venegas, chief urology resident contract consultant. Pager during business hours: [phone] Pager after hours: [phone] * Emeterio Buchanan P.T., D.P.T., [facility] - 08/24/2023 10:46 AM CDT Physical Therapy Inpatient Treatment SUBJECTIVE Patient's Name: Kalen Vega Referring/Attending Provider: Boubacar Brock M.D. Reason for Referral: Physical Therapy Evaluate and Treat History of Present Illness: Kalen Vega is a 83 y.o. male who was admitted to [facility] in [place] on 08/13/2023 for Hematuria [R31.9] Precautions Other [...] at or below 17 Clinicians answer the [facility] Inpatient Short Form based [...] baseline. PT Goal #2: Patient will perform ygd-qe-crrkj transfer with modified independence and least restrictive [...] Total Kcal/day: 1370 based on 84 % Garcia-Hardaway Non-standard additives: K 80 mEq Phos 30 [...] #1 Hematuria Please page [facility] ([phone]) or [facility] ([phone]) Nutrition Support Service pager with questions. * [...] catheter in place draining light smith I/O ([id number]): Forty-two cc serosanguineous from the drain 2.2 [...] 2.5 mg BID eliquis initiated 08/15 per [facility] med curbside recs --transition from eliquis [...] have him follow up with his local special effects makeup artist Comorbidities: --history of DVT status post IVC [...] discussed with Dr. Venegas, chief urology resident contract consultant. Pager during business hours: [phone] Pager after hours: [phone] * Deanne Mike L.G.S.W., M.S.W. - 08/23/2023 11:25 AM CDT SUBJECTIVE Social Work spoke with [facility]. They cannot provide assisted at this time. They can provide OT/PT [...] anticipated discharge date of 08/24/23-08/26/23. Referrals sent: [facility] [place] [facility] (out of service area) [facility] ASSESSMENT / PLAN ASSESSMENT Patient has robust family support including a son living with him. PLAN Patient desires home health care through [facility]. Social Work will continue to follow to provide support. Social Work will continue to assist with discharge needs. Shorty Sun, M.S.W. 08/23/23 * Jazmine Benítez R.N., C.W.C.N. - 08/23/2023 11:[address] [facility] Wound RN consulted to assess [...] stent and hematuria who is transferred from [place] ED with 3 days of hematuria and [...] None Unable to Measure Y *Wound Bed Closed;[place];Red Tissue Exposed None Odor None *Exudate Amount [...] 30 minutes > 30 minutes Ongoing management Nursing;Wound/secretary book keeper Partial head to toe skin assessment completed [...] Mark.MelindaCJonahNJonah 08/23/23 11:10 AM CDT * Emeterio Buchanan P.T., D.P.T., [facility] - 08/23/2023 11:02 AM CDT Physical Therapy Inpatient Treatment SUBJECTIVE Patient's Name: Kalen Vega Referring/Attending Provider: Boubacar Brock M.D. Reason for Referral: Physical Therapy Evaluate and Treat History of Present Illness: Kalen Vega is a 83 y.o. male who was admitted to [facility] in [place] on 08/13/2023 for Hematuria [R31.9] Precautions Other [...] and O2 flow: Room air Outcome Measures: [facility] Inpatient Short Form: [facility] Basic Mobility (V.2) How [...] at or below 17 Clinicians answer the [facility] Inpatient Short Form based [...] baseline. PT Goal #2: Patient will perform mpm-jt-hgukk transfer with modified independence and least restrictive [...] D.P.T., GCS * Demarco Salazar, PharmJonahD., R.Ph., [facility] - 08/23/2023 10:19 AM CDT Pharmacist Progress [...] Total Kcal/day: 1370 based on 84 % Garcia-Hardaway Non-standard additives: MAX chloride Thiamine 100 mg [...] #1 Hematuria Please page [facility] ([phone]) or [facility] ([phone]) Nutrition Support Service pager with questions. * Ivy Hernandez O.T. - 08/23/2023 8:30 AM CDT Occupational Therapy [facility] Inpatient Treatment SUBJECTIVE Patient's Name: Kalen Vega Referring/Attending Provider: Boubacar Brock M.D. Reason for Referral: Occupational Therapy Evaluation and Treatment History of Present Illness: Kalen Vega is a 83 y.o. male who was admitted to [facility] in [place] on 08/13/2023 for Hematuria [R31.9]. Precautions Other Precautions: Abdominal, fall precautions, monitor tachycardia and hypertension Pain Assessment: Pain not reported during session. Subjective Comments: Agreeable to therapy session. Team Communication: The patient's status was discussed and coordination of care occurred with RN, PT OBJECTIVE Vital Signs: Vitals monitored throughout session; within normal ranges. Outcome Measures: [facility] Inpatient Short Form: Putting [...] at or below 17 Clinicians answer the [facility] Inpatient Short Form based [...] catheter in place draining clear yellow I/O ([id number]): 73 cc serosanguineous from the drain Seven [...] 2.5 mg BID eliquis initiated 08/15 per [facility] med curbside recs --transition from eliquis [...] have him follow up with his local special effects makeup artist Comorbidities: --history of DVT status post IVC filter, home Xarelto (holding since 08/11) -CAD status post cardiac stents (Plavix held since 08/11) -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 [facility] Summary: Diet: NPO, TPN Activity: [...] discussed with Dr. Venegas, chief urology resident contract consultant. Pager during business hours: [phone] Pager after hours: [phone] * Chary Diamond M.A., O.T., [facility] - [...] OBJECTIVE Patient is anticipated to remain at [place] for 3-5 days. Referrals sent: [facility] ASSESSMENT / PLAN ASSESSMENT Patient has robust family support including a son living with him. PLAN Patient desires home health care through [facility]. Social Work will continue to follow [...] 83 y.o. male who was admitted to [facility] in [place] on 08/13/2023 for Hematuria [R31.9] Precautions Other [...] 3-5 steps with a railing?: A Lot [facility] Basic Mobility (V.2) Raw Score: 17 [facility] Basic Mobility (V.2) Standardized Score: 39.67 Interpretation: Based on scoring guidelines using the raw score value: Those going to home had an average score at or above 18 Those going to facility had an average score at or below 17 Clinicians answer the [facility] Inpatient Short Form based [...] baseline. PT Goal #2: Patient will perform nqy-lb-udyse transfer with modified independence and least restrictive [...] Total Kcal/day: 1370 based on 84 % Garcia-Hardaway Non-standard additives: MAX chloride Thiamine 100 mg [...] place draining light smith colored urine I/O ([id number]): CBI on slow drip 75 cc serosanguineous [...] 2.5 mg BID eliquis initiated 08/15 per [facility] med curbside recs --transition from eliquis [...] have him follow up with his local special effects makeup artist Comorbidities: --history of DVT status post IVC [...] Meds: None Consults: TPMari, KESHIA Hernandez M.D. 08/22/2023 Please page the Urology Chief Service with questions or concerns. Patient seen and discussed with Dr. Venegas, chief urology resident contract consultant. Pager during business hours: [phone] Pager after hours: [phone] * Qamar Jim, Pharm.DJonah, R.Ph. - 08/21/2023 [...] aPTT guidance document in [employer]. Qamar Jim PharmDayday, R.Ph. * Lizette Harvey M.D. - 08/21/2023 [...] place draining clear smith colored urine I/O ([id number]): 1800 cc urine output 75 cc serosanguineous [...] have him follow up with his local special effects makeup artist Comorbidities: --history of DVT status post IVC [...] discussed with Dr. Venegas, chief urology resident contract consultant. Pager during business hours: [phone] Pager after hours: [phone] * Lizette Harvey M.D. - 08/20/2023 8:08 [...] draining clear thin merlot colored urine I/O ([id number]): 240 cc p.o. intake 760 cc urine [...] 2.5 mg BID eliquis initiated 08/15 per [facility] med curbside recs --transition from eliquis [...] have him follow up with his local special effects makeup artist Comorbidities: --history of DVT status post IVC [...] questions or concerns. Pager during business hours: [phone] Pager after hours: [phone] * Qamar Jim, PharmJonahDJonah, R.Ph. - 08/20/2023 [...] aPTT guidance document in [employer]. Qamar Jim, PharmJonahD., R.Ph. * Lisa Seaman, O.T., [facility] - 08/19/2023 2:26 PM CDT Occupational Therapy [facility] Inpatient Treatment SUBJECTIVE Patient's Name: Kalen Vega Referring/Attending Provider: Boubacar Brock M.D. Reason for Referral: Occupational Therapy Evaluation and Treatment History of Present Illness: Kalen Vega is a 83 y.o. male who was admitted to [facility] in [place] on 08/13/2023 for Hematuria [R31.9]. Precautions Other Precautions: Abdominal, fall precautions, monitor tachycardia and hypertension Pain Assessment: Pain not reported during session. Subjective Comments: Patient greeted in chair and agreeable to therapy session. Team Communication: The patient's status was discussed and coordination of care occurred with RN OBJECTIVE Vital Signs: Vitals monitored throughout session; within normal ranges. Outcome Measures: [facility] Inpatient Short Form: Putting [...] at or below 17 Clinicians answer the [facility] Inpatient Short Form based [...] about patient's nutritional care please contact pager [phone] on weekdays or [phone] on weekends/holidays. NUTRITION ASSESSMENT: Mr. Vega is [...] care everywhere) ESTIMATED NEEDS: Total Calorie Needs: 7416-2133 calories/day Method to Estimate Energy Needs: kcal/kg [...] 83 y.o. male who was admitted to [facility] in [place] on 08/13/2023 for Hematuria [R31.9] Precautions Other [...] mmHg O2: 96% Room air Outcome Measures: [facility] Inpatient Short Form: -KADLEC [...] Ongoing PT Goal #2: Patient will perform lgl-ow-seial transfer with modified independence and least restrictive [...] unit/kg/h. Will recheck aPTT tomorrow morning. Marie Cassiyd, R.Ph., Pharm.D. * Paula Hernandez M.D. - [...] in place draining clear pink urine I/O ([id number]): 370 p.o. intake 1 L urine output [...] Plavix and Xarelto last doses of each On 08/11 developed worsening hematuria ultimately went [...] 2.5 mg BID eliquis initiated 08/15 per [facility] med curbside recs --transition from eliquis [...] have him follow up with his local special effects makeup artist Comorbidities: --history of DVT status post IVC [...] questions or concerns. Pager during business hours: [phone] Pager after hours: [phone] * Lisa Seaman, O.T., [facility] - 08/18/2023 11:15 AM CDT Occupational Therapy [facility] Inpatient Treatment SUBJECTIVE Patient's Name: Kalen Vega Referring/Attending Provider: Boubacar Brock M.D. Reason for Referral: Occupational Therapy Evaluation and Treatment History of Present Illness: Kalen Vega is a 83 y.o. male who was admitted to [facility] in [place] on 08/13/2023 for Hematuria [R31.9]. Precautions Other [...] doffing over it last. Recommended adaptive equipment: Station Detective and Sock Aid. Patient was left in bedside chair, with nursing/THREADING MACHINE SETTER at end of session with call light [...] 83 y.o. male who was admitted to [facility] in [place] on 08/13/2023 for Hematuria [R31.9] Precautions Other [...] 3-5 steps with a railing?: A Little [facility] Basic Mobility (V.2) Raw Score: 18 [facility] Basic Mobility (V.2) Standardized Score: 41.05 Interpretation: Based on scoring guidelines using the raw score value: Those going to home had an average score at or above 18 Those going to facility had an average score at or below 17 Clinicians answer the [facility] Inpatient Short Form based [...] following coordination of care occurred with the operations scheduler/Caregiver Present: No Patient was left in bedside [...] Progressing PT Goal #2: Patient will perform esl-dl-cjwhg transfer with modified independence and least restrictive [...] in place draining clear pink urine I/O ([id number]): 1.2 L p.o. intake 1 L urine [...] diet later today follow up vascular medicine [facility] Summary: Diet: currently limited clears Activity: Ad kong DVT PPX: heparin drip GI PPX: Pantoprazole Bowel Regimen:N/A IVF: none Abx/Microbiology: Ceftriaxone Pain Control: Tylenol, oxycodone 08/18. Scheduled trospium Home Meds Resumed: Metoprolol, tamsulosin, rosuvastatin Held Home Meds: None Consults: None Paula Hernandez M.D. 08/18/2023 6:02 AM CDT Please page the Urology Chief Service with questions or concerns. Pager during business hours: [phone] Pager after hours: [phone] * Tayler Greenwood M.D., M.Ed. - 08/17/2023 [...] the patient follow up with his primary special effects makeup artist at discharge we will which we will [...] Ringer's Lactated Ringer's * Lisa Seaman, O.T., [facility] - 08/17/2023 10:47 AM CDT Occupational Therapy [facility] Inpatient Treatment SUBJECTIVE Patient's Name: Kalen Vega Referring/Attending Provider: Boubacar Brock M.D. Reason for Referral: Occupational Therapy Evaluation and Treatment History of Present Illness: Kalen Vega is a 83 y.o. male who was admitted to [facility] in [place] on 08/13/2023 for Hematuria [R31.9]. Precautions Other [...] at or below 17 Clinicians answer the [facility] Inpatient Short Form based [...] in place draining clear pink urine I/O ([id number]): NG tube 200 cc Two hundred sixty-five [...] 75 Abx/Microbiology: Ceftriaxone Pain Control: Tylenol, oxycodone 5/10. Scheduled trospium Home Meds Resumed: Metoprolol, tamsulosin, rosuvastatin Held Home Meds: None Consults: None Paula Hernandez M.D. 08/17/2023 6:02 AM CDT Please page the Urology Chief Service with questions or concerns. Pager during business hours: [phone] Pager after hours: [phone] * Audi De Luna P.T., D.P.T. - [...] in place draining clear pink urine I/O ([id number]): NG tube 200 cc Two hundred sixty-five [...] of bowel function # E coli bacteremia -nnuez susceptible, currently on ceftriaxone Comorbidities: -history of [...] will discuss with Cardiology need for both [facility] Summary: Diet: NPO Activity: Ad kong DVT PPX: Ashley heparin GI PPX: Pantoprazole Bowel Regimen:N/A IVF: LR 75 Abx/Microbiology: Ceftriaxone Pain Control: Tylenol, oxycodone 08/18. Scheduled trospium Home Meds Resumed: Metoprolol, tamsulosin, rosuvastatin Held Home Meds: None Consults: None Signed by: Paula Hernandez M.D. 08/16/2023 6:02 AM CDT Please page the Urology Chief Service with questions or concerns. Pager during business hours: [phone] Pager after hours: [phone] * Paula Hernandez M.D. - 08/15/2023 9:09 AM CDT PROGRESS NOTE: No events. AFVSS. Pain controlled. No flatus. No further emesis overnight. Abdomen more distended than yesterday but remained soft, tender to deep palpation only, no rebound. Twenty-four Nigerien Alcock three-way catheter remains off CBI, draining [...] above was discussed with Dr. Brock, urology executive consultant on-call who is in agreement with [...] Family to bring his home enzalutamide from [place] Irvin Franco Pharm.D., R.Ph. * Jakob De Paz M.D. - 08/14/2023 11:34 AM CDT PROGRESS NOTE: No events. AFVSS. Pain controlled. No flatus. Nauseous and had 2 episodes of emesis. Abdomen more distended than yesterday but remained soft, tender to deep palpation only, no rebound. Twenty-four Nigerien Alcock three-way catheter remains off CBI, draining [...] above was discussed with Dr. Brock, urology executive consultant on-call who is in agreement with [...] Patient discussed with Dr. Sylvester. Page CCM3 [id number] Carlos Alberto Henson M.D. PGY-1 CCM 3 [...] who have asked we place a 24 Nigerien 3-way urinary catheter pending evaluation. We will [...] him to present to local hospital in [place]. OSH Course: His hemoglobin was in the [...] Insecurity: No Food Insecurity (02/16/2022) Received from [employer] [facility], [facility] Insecurity Worried About Running Out of Food in the Last Year: 1 Transportation Needs: No Transportation Needs (02/16/2022) Received from [employer] [facility], [employer] [facility] Transportation Needs Lack of Transportation (Medical): 1 Housing Stability: Low Risk (02/16/2022) Received from [employer] [facility], [employer] [facility] Housing Stability Unable to Pay for [...] Dr. Sylvester and Dr. Rodriguez. Page CCM3 [id number] Carlos Alberto Henson M.D. PGY-1 CCM 3 [...] As expected PRIMARY PROCEDURALIST FAY Cerna MD [phone] ASSISTANTS none COMPLICATIONS None. DRAINS None. IMPLANTS [...] peripheral vein targets. Ultrasound used for assessment: [employer] Fit Provider contacted (include name): Uro Surg [...] 14 -- AST U/L 25 -- Radiology: @[id number]@ Swallow Assessment: No data to display ASSESSMENT / PLAN #1 Hematuria ASSESSMENT Currently we are asked to visit with Mr. Vega for consideration of parenteral nutrition. Nutrition Needs: Height: 180 cm Admission Weight: 91.2 kg (08/13/2023) Current Weight: 90.2 kg BMI (Calculated): 27.8 kg/m?? Total Calorie Needs: 2401-3829 calories/day Method to Estimate Energy Needs: Garcia-Hardaway ( ) Weight Used for Equation Calculations: [...] on electrolytes Please call NSS pager at [phone] at [facility] or [phone] at [facility] with any additional questions. * Gilbert Johnson [...] STENT EXCHANGE; Surgeon: Boubacar Brock M.D.; Location: [facility] ROMB OR FAMILY HISTORY No family history [...] values in this interval not displayed. Radiology: @[id number]@ Swallow Assessment: No data to display ASSESSMENT / PLAN #1 Hematuria ASSESSMENT Currently we are asked to visit with Mr. Vega for consideration of parenteral nutrition. Nutrition Needs: Height: 180 cm Admission Weight: 91.2 kg (08/13/2023) Current Weight: 90.2 kg BMI (Calculated): 27.8 kg/m?? Total Calorie Needs: 1071-2608 calories/day Method to Estimate Energy Needs: kcal/kg [...] on electrolytes Please call NSS pager at [phone] at [facility] or [phone] at [facility] with any additional questions. BILLING/CODING Total visit [...] stent along with other stents and apparently special effects makeup artist in the past I recommended indefinite dual [...] 20 mL/hr, intravenous, Continuous, Frieda Garner APRN, GOLD LAYER, Last Rate: 20 mL/hr at 08/15/23 1459, [...] but he can discuss this with his special effects makeup artist at home. We need to balance transfusion [...] (N/A, 08/15/2023). History of Present Illness: Kalen Veag is a 83 y.o. male who was admitted to [facility] in [place] on 08/13/2023 for Hematuria [R31.9]. Relevant Medical History: Kalen Vega is a 83 y.o. 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 male who was admitted to [facility] in [place] on 08/13/2023 for Hematuria with cystotomy and [...] Min assist for mobility. Required assist for [id number] for force generation and is generally standby [...] family in the area that could provide / supervision if needed. Stairs and bed mobility [...] Ongoing PT Goal #2: Patient will perform hfj-fg-[id number] transfer with modified independence and least restrictive [...] 83 y.o. male who was admitted to [facility] in [place] on 08/13/2023 for Hematuria [R31.9]. Relevant Medical [...] with RN, PT Family/Caregiver Present: Son and hkamdwyj-xh-ure. Home Living and Equipment: Lives with: Spouse/Significant [...] walker, Single point cane Adaptive Equipment Owned: Station Detective, Long Handled Shoe Horn Other DME Owned: Regular flat bed Prior Level of Function and Mobility: Basic Activities of Daily Living: Independent Instrumental Activities of Daily Living: Required Assistance: Laundry son assists with laundry and cooking Functional Mobility: Independent Driving: Yes Occupational Role: Retired Leisure Interests: watch movies, plays [employer] train, meets friends for breakfast. 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 Patient expressed understanding and [...] engaged in conversation with his family when licensed clinical social worker entered the room. He [...] locally at approximately 3:00 a.m. a 22 Nigerien three-way catheter was placed and CBI wasinitiated. Unfortunately he clotted off the catheter multiple times despite manual irrigations, started to develop hypotension and tachycardia [facility] He relays the above [...] non-distended, non-peritonitic Extremities: No edema : 22 Nigerien three-way Tabares catheter draining a minimal amount [...] urinary retention Given his non draining 22 Nigerien three-way catheter the Urology techs and I subsequently exchanged this for a 24 Nigerien three-way Alcock in the usual sterile fashion. [...] to follow [place] [phone] with questions or concerns Sixto Cain M.D. [...] edema, extravasation Extremities assessed (right/left, upper/lower arm): VINCENZO/LUNohemy Vein score: 5 Grade 1/Excellent: Palpable & [...] peripheral vein targets. Ultrasound used for assessment: [employer] Fit Provider contacted (include name): Uro Surg [...] CDT Patient Transfer Note Patient transferred to: [facility] Room: [facility] Accompanied [...] signs? YES * Sixto Teague R.R.TJonah, L.R.T., PRESS MACHINE FE[facility]ER-[facility] - 08/14/2023 7:00 AM CDT [...] the last 24hours. Sixto Teague R.R.T., L.R.T., PRESS MACHINE FEEDER-[facility] 08/14/23 7:00 AM CDT Electronically signed by Sixto Teague R.R.TJonah, L.R.T., PRESS MACHINE FE[facility]ER[facility] at 08/14/2023 7:02 AM CDT [...] Bladder Spontaneous Post-op Diagnosis Rupture Bladder Spontaneous Store Administrator A general assistant actively participated and was necessary for [...] the supine flexed position. His existing 24 Nigerien three-way Tabares catheter was noted to be [...] additional tissue for additional coverage. A 24 Nigerien three-way catheter was placed with 15 cc in the balloon. This irrigated to light clear pink. A 15 Nigerien YARELI drain wasplaced into the pelvis exiting left lower quadrant. The fascia was closed with interrupted and ryxeik-lh-hhmjm 0 PDS. Fat was approximated using 3-0 [...] (5-4) -LR @ 75 cc/hr (-7 - -8) Please contact me if you have questions. Thank you, ELMER Barker, RN, CPN, CCDS, CCS, CRC Clinical Documentation High Wire Artist Query created by: ELMER Barker, RN, CPN, [...] stent and hematuria who is transferred from [place] ED with 3 days of hematuria & [...] RN, CPN, CCDS, CCS, CRC Clinical Documentation High Wire Artist Query created by: ELMER Barker, RN, CPN, [...] he felt completely obstructed and presented to [place] ED. [place] Course Attempted Tabares insertion but bladder irrigation was unsuccessful on multiple attempts. Hung 1U pRBC's. Given some volume and transferred to [facility] ICU ICU Course Urology consulted and [...] CDT Office Visit Department of Urology in [place], [place] [address] [place] [phone] Burke Strauss M.D. [address] [place] [phone] Discharge Disposition: Home or Self Care Pending [...] Antibody ID) (08/26/2023 6:50 AM CDT) Pathologist [facility] ABORh O Pos Not applicable 08/26/2023 7:16 AM CDT STRM Antibody Screen Negative Negative 08/26/2023 7:29 AM CDT STRM Type & Screen Expiration 08/29/2023 23:59 08/26/2023 7:16 AM CDT STRM Testing Location [place] DEFAULT 08/26/2023 6:57 AM CDT STRM Blood (Blood, Venous) 08/26/2023 6:50 AM CDT 08/26/2023 6:57 AM CDT Paula Hernandez M.D. LAB BLOOD BANK TEST ORDERABLES Performing Organization Address [facility] Co de Phone Number [facility] [address] [place] [address], [facility] STRM [facility] [address] [place] [address] * (ABNORMAL) CBC without Differential (08/26/2023 3:20 [...] M.D. LAB BLOOD ADD-ON Performing Organization Address City/[facility]/ZIP Co de Phone Number [facility] [address] [place] [address], [facility] DTL [facility] [address] [place] [address] * Magnesium (08/26/2023 3:20 AM CDT) Magnesium, S 2.1 1.7 - 2.3 mg/dL 08/26/2023 4:04 AM CDT DTL Blood (Blood, Venous) 08/26/2023 3:20 AM CDT 08/26/2023 3:50 AM CDT Boubacar Brock M.D. LAB BLOOD ADD-ON [facility] [address] [place] [address], [facility] DTL [facility] [address] [place] [address] * (ABNORMAL) Renal Function Panel (08/26/2023 3:20 [...] LAB BLOOD ADD-ON Performing Organization Address [facility]/ZIP Co de Phone Number [facility] [address] [place] [address], [facility] [address] [place] [address] * Heparin Anti-Xa Assay (08/26/2023 3:20 AM [...] M.D. LAB BLOOD NON ADD -ON [facility] [address] [place] [address], [facility] [address] [place] [address] * (ABNORMAL) CBC without Differential (08/25/2023 3:24 [...] Corin Ring M.D. LAB BLOOD ADD-ON [facility] [address] [place] [address], [facility] [address] [place] [address] * (ABNORMAL) Renal Function Panel (08/25/2023 3:24 AM CDT) [facility] Potassium, S 4.1 3.6 - 5.2 [...] Boubacar Brock M.D. LAB BLOOD ADD-ON [facility] [address] [place] [address], [facility] [address] [place] [address] * Magnesium (08/25/2023 3:24 AM CDT) [facility] Magnesium, S 2.2 1.7 - 2.3 mg/dL 08/25/2023 4:36 AM CDT DTL Blood (Blood, Venous) 08/25/2023 3:24 AM CDT 08/25/2023 4:19 AM CDT Boubacar Brock M.D. LAB BLOOD ADD-ON Performing Organization Address City/[facility]/ZIP Co de Phone Number [facility] [address] [place] [address], [facility] [address] [place] [address] * Heparin Anti-Xa Assay (08/25/2023 3:24 AM CDT) [facility] Heparin Anti-Xa, P 0.31 IU/mL 2023 [...] Boubacar Brock M.D. LAB BLOOD NON ADD-ON [address] [facility] [address] [place] [address] * (ABNORMAL) CBC without Differential (08/24/2023 5:28 AM CDT) [facility] Hemoglobin 8.1(L) 13.2 - 16.6 g/dL [...] M.D. LAB BLOOD ADD-ON Performing Organization Address City/[facility]/ZIP Co de Phone Number [facility] [address] [place] [address] * Magnesium (08/24/2023 5:28 AM CDT) Magnesium, S 2.3 1.7 - 2.3 mg/dL 08/24/2023 6:19 AM CDT DTL Blood (Blood, Venous) 08/24/2023 5:28 AM CDT 08/24/2023 6:00 AM CDT Boubacar Brock M.D. LAB BLOOD ADD-ON Performing Organization Address [facility] Co de Phone Number [facility] [address] [place] [address], [place] [address] * (ABNORMAL) Renal Function Panel (08/24/2023 5:28 [...] CDT Boubacar Brock M.D. [place] [address], [facility] [place] [address] * Heparin Anti-Xa Assay (08/24/2023 5:28 AM [...] Brock M.D. LAB BLOOD NON ADD-ON [facility] [address] [place] [address], [facility] [address] [place] [address] * (ABNORMAL) Potassium (08/23/2023 9:58 PM CDT) Potassium, S 3.5(L) 3.6 - 5.2 mmol/L 08/23/2023 10:45 PM CDT DT Blood (Blood, Venous) 08/23/2023 9:58 PM CDT 08/23/2023 10:30 PM CDT Boubacar Brock M.D. LAB BLOOD ADD-ON Performing Organization Address City/[facility]/ZIP Co de Phone Number [facility] [address] [place] [address], [facility] [address] [place] [address] * (ABNORMAL) Phosphorus Inorganic (08/23/2023 9:58 PM CDT) [facility] Phosphorus (Inorganic), S 2.1(L) 2.5 - 4.5 mg/dL 08/23/2023 10:45 PM CDT DT Blood (Blood, Venous) 08/23/2023 9:58 PM CDT 08/23/2023 10:30 PM CDT Paula Hernandez M.D. LAB BLOOD ADD-ON [facility] [address] [place], [place] [phone] [place] [address] [address] [place] [address] * Heparin Anti-Xa Assay (08/23/2023 11:37 AM CDT) [facility] Heparin Anti-Xa, P 0.51 IU/mL 2023 [...] Boubacar Brock M.D. [place] [address], [facility] [place] [address] * (ABNORMAL) CBC without Differential (08/23/2023 3:42 AM CDT) [facility] Hemoglobin 8.3(L) 13.2 - 16.6 g/dL [...] M.D. LAB BLOOD ADD-ON Performing Organization Address City/[facility] Co de Phone Number [facility] [address] [place] [address] * Triglycerides (08/23/2023 3:42 AM CDT) Triglycerides [...] LAB BLOOD ADD-ON Performing Organization Address [facility] Co de Phone Number [facility] [address] [place], [place] [phone] [place] [address] [address] [place] [address] * Magnesium (08/23/2023 3:42 AM CDT) Magnesium, S 2.2 1.7 - 2.3 mg/dL 08/23/2023 4:50 AM CDT DTL Blood (Blood, Venous) 08/23/2023 3:42 AM CDT 08/23/2023 4:19 AM CDT Boubacar Brock M.D. LAB BLOOD ADD-ON Performing Organization Address City/[facility] Co de Phone Number [facility] [address] [place] [address], [facility] DTL [facility] [address] [place] [address] * (ABNORMAL) Renal Function Panel (08/23/2023 3:42 [...] Boubacar Brock M.D. LAB BLOOD ADD-ON [facility] [address] [place], [place] [phone] [place] [address] [address] [place] [address] * Heparin Anti-Xa Assay (08/23/2023 3:41 AM [...] Brock M.D. LAB BLOOD NON ADD-ON [facility] [address] [place], [place] [phone] [place] [address] [address] [place] [address] * Glucose, POCT (08/22/2023 11:38 PM CDT) Glucose, POCT, B 117 70 - 140 mg/dL 08/23/2023 1:06 AM CDT PCLX Site Capillary 08/23/2023 1:06 AM CDT PCLX Last Intake NPO 08/23/2023 1:06 AM CDT PCLX Blood 08/22/2023 11:3 8 PM CDT 08/23/2023 1:06 AM CDT Unknown Provider LAB POCT ORDERABLES- MANUAL Performing Organization Address City/[facility]/ZIP Co de Phone Number POC [facility] [address] [place] [address], [facility] PCLX [facility] [address] [place] [address] * Heparin Anti-Xa Assay (08/22/2023 10:14 PM [...] LAB BLOOD NON ADD-ON Performing Organization Address City/[facility]/ZIP Co de Phone Number [facility] [address] [place] [address], [facility] [address] [place] [address] * CT Abdomen Pelvis without IV Contrast [...] Boubacar Brock M.D. [place] [address], [facility] [place] [address] * Creatinine, Body Fluid (08/22/2023 3:30 PM [...] transport rates. All other fluids refer to www.[employer]s.com for further interpretive information. This test has been modified from the ethylene plant operator's instructions. Its performance characteristics were determined by [facility] in a manner consistent with CLIA requirements. This test has not been cleared or approved by the U.S. Food and Drug Administration. Fluid Type, Creatinine Fluid, Abdomen 08/22/2023 3:52 PM CDT DTL Fluid (Abdomen) 08/22/2023 3 :30 PM CDT 08/22/2023 6:36 PM CDT Corin Ring M.D. LAB BODY FLUIDS AND STOOLS ORDERABLES [facility] [address] [place] [address], [facility] [address] [place] [address] * Transfuse Red Blood Cells : (08/22/2023 [...] of a right IJ vein single-lumen 4 Nigerien tunneled PowerPICC ready for immediate use. NR [...] advanced into the IVC and a 4 Nigerien dilator advanced over the wire and attached to a one-way stopcock. A suitable exit site in the right anterior chest was anesthetized and a small incision made. A 4 Nigerien single-lumen PowerPICC was then tunneled from the [...] Wireadvanced into the IVC and a 4 Nigerien dilator advanced over the wire andattached to a one-way stopcock. A suitable exit site in the right anteriorchest was anesthetized and a small incision made. A 4 Nigerien single-lumen PowerPICC was then tunneled fromthe skin [...] of a right IJ vein single-lumen 4 Nigerien tunneled PowerPICCready for immediate use. NR Kimi [...] M.D. LAB BLOOD ADD-ON Performing Organization Address City/[facility] Co de Phone Number [facility] [address] [place] [address] * Type and Screen (with Reflex Antibody ID) (08/22/2023 2:55 AM CDT) Pathologist [facility] ABORh O Pos Not applicable 08/22/2023 3:25 AM CDT STRM Antibody Screen Negative Negative 08/22/2023 3:38 AM CDT STRM Type & Screen Expiration 08/25/2023 23:59 08/22/2023 3:25 AM CDT STRM Testing Location [place] DEFAULT 08/22/2023 3:07 AM CDT STRM Blood (Blood, Venous) 08/22/2023 2:55 AM CDT 08/22/2023 3:07 AM CDT Latisha Whitehead M.D. LAB BLOOD BANK T EST ORDERABLES Performing Organization Address [facility]/ZIP Co de Phone Number [facility] [address] [place] [address] * (ABNORMAL) Comprehensive Metabolic Panel (08/22/2023 2:40 AM CDT) [facility] Potassium, S 3.2(L) 3.6 - 5.2 [...] M.D. LAB BLOOD ADD-ON Performing Organization Address City/[facility] Co de Phone Number [facility] [address] [place] [address], [facility] [address] [place] [address] * Heparin Anti-Xa Assay (08/22/2023 2:40 AM [...] BLOOD NON AD D-ON Performing Organization Address City/[facility]/ZIP Co de Phone Number [facility] [address] [place] [address], [facility] [address] [place] [address] * (ABNORMAL) APTT (Activated Partial Thromboplastin Time) (08/22/2023 2:40 AM CDT) Pathologist [facility] Activated Partial Thrombopl Time, P 64(H) 25 - 37 sec 08/22/2023 3:12 AM CDT STMA Blood (Blood, Venous) 08/22/2023 2:40 AM CDT 08/22/2023 3:01 AM CDT Latisha Whitehead M.D. LAB BLOOD ADD-ON [facility] [address] [place] [address] * Triglycerides (08/21/2023 7:32 AM CDT) Triglycerides [...] LAB BLOOD ADD-O N Performing Organization Address City/[facility]/ZIP Co de Phone Number [facility] [address] [place], [place] [phone] [place] [address] [address] [place] [address] * Phosphorus Inorganic (08/21/2023 7:32 AM CDT) Phosphorus (Inorganic), S 2.6 2.5 - 4.5 mg/dL 08/21/2023 9:03 AM CDT DTL Blood (Blood, Venous) 08/21/2023 7:32 AM CDT 08/21/2023 8:38 AM CDT Lizette Harvey M.D. LAB BLOOD ADD-O N [facility] [address] [place] [address] * Magnesium (08/21/2023 7:32 AM CDT) Magnesium, S 2.3 1.7 - 2.3 mg/dL 08/21/2023 9:03 AM CDT DTL Blood (Blood, Venous) 08/21/2023 7:32 AM CDT 08/21/2023 8:38 AM CDT Lizette Harvey M.D. LAB BLOOD ADD-O N [facility] [address] [place] [address], [facility] [address] [place] [address] * (ABNORMAL) Basic Metabolic Panel (08/21/2023 7:32 AM CDT) Pathologist [facility] Potassium, S 3.3(L) 3.6 - 5.2 mmol/L [...] LAB BLOOD ADD-O N Performing Organization Address City/[facility]/ZIP Co de Phone Number [facility] [address] [place], [place] [phone] [place] [address] DTL [facility] [address] [place] [address] * (ABNORMAL) CBC without Differential (08/21/2023 7:32 [...] LAB BLOOD ADD-O N Performing Organization Address City/[facility]/ZIP Co de Phone Number [facility] [address] [place] [address], [facility] DTL [facility] [address] [place] [address] * Heparin Anti-Xa Assay (08/21/2023 7:32 AM CDT) Heparin Anti-Xa, P 0.49 IU/mL 2023 8:31 AM CDT [facility] Comment: UFH therapeutic range: ?? 0.30-0.70 [...] LAB BLOOD NON ADD-ON Performing Organization Address City/[facility]/ZIP Co de Phone Number [facility] [address] [place], [place] [phone] [place] [address] [address] [place] [address] * (ABNORMAL) APTT (Activated Partial Thromboplastin Time) (08/21/2023 7:32 AM CDT) Pathologist [facility] Activated Partial Thrombopl Time, P 49(H) 25 - 37 sec 08/21/2023 8:31 AM CDT [facility] Blood (Blood, Venous) 08/21/2023 7:32 AM CDT 08/21/2023 8:06 AM CDT Boubacar Brock M.D. LAB BLOOD ADD-ON [facility] [address] [place] [address], [facility] [address] [place] [address] * Place peripherally inserted central catheter (PICC) [...] Procedure Note Raul Vázquez M.D., M.S. - 05/17/2024 REVISED REPORT: EXAM: CT ABDOMEN PELVIS WITH [...] [facility] [address] [place], [place] [phone] [place] [address] [facility] [address] [place] [address] * (ABNORMAL) CBC without Differential (08/20/2023 3:19 [...] M.D. LAB BLOOD ADD-ON Performing Organization Address City/[facility]/ZIP Co de Phone Number [facility] [address] [place], [place] [address] [place] [address] [address] [place] [address] * (ABNORMAL) APTT (Activated Partial Thromboplastin Time) (08/20/2023 3:19 AM CDT) Activated Partial Thrombopl Time, P 52(H) 25 - 37 sec 08/20/2023 4:33 AM CDT DTL Blood (Blood, Venous) 08/20/2023 3:19 AM CDT 08/20/2023 4:10 AM CDT Boubacar Brock M.D. LAB BLOOD ADD-ON Performing Organization Address [facility]/ZIP Co de Phone Number [facility] [address] [place], [place] [address] [address] [place] [address] * (ABNORMAL) APTT (Activated Partial Thromboplastin Time) (08/19/2023 10:57 AM CDT) Activated Partial Thrombopl Time, P 54(H) 25 - 37 sec 08/19/2023 11:44 AM CDT DTL Blood (Blood, Venous) 08/19/2023 10:57 AM CDT 08/19/2023 11:26 AM CDT Boubacar Brock M.D. LAB BLOOD ADD-ON [facility] [address] [place], [place] [address] [address] [place] [address] * (ABNORMAL) APTT (Activated Partial Thromboplastin Time) (08/19/2023 4:51 AM CDT) Activated Partial Thrombopl Time, P 59(H) 25 - 37 sec 08/19/2023 5:53 AM CDT DTL Blood (Blood, Venous) 08/19/2023 4:51 AM CDT 08/19/2023 5:36 AM CDT Boubacar Brock M.D. LAB BLOOD ADD-ON [facility] [address] [place] [address], [facility] [address] [place] [address] * (ABNORMAL) APTT (Activated Partial Thromboplastin Time) (08/18/2023 10:03 PM CDT) [facility] Activated Partial Thrombopl Time, P 63(H) 25 - 37 sec 08/18/2023 10:41 PM CDT DT Blood (Blood, Venous) 08/18/2023 10:03 PM CDT 08/18/2023 10:19 PM CDT Boubacar Brock M.D. LAB BLOOD ADD-ON Performing Organization Address City/[facility]/ZIP Co de Phone Number [facility] [address] [place] [address], [facility] [address] [place] [address] * (ABNORMAL) APTT (Activated Partial Thromboplastin Time) (08/18/2023 2:50 PM CDT) [facility] Activated Partial Thrombopl Time, P 64(H) 25 - 37 sec 08/18/2023 3:25 PM CDT DTL Blood (Blood, Venous) 08/18/2023 2:50 PM CDT 08/18/2023 3:07 PM CDT Boubacar Brock M.D. LAB BLOOD ADD-ON [facility] [address] [place], [place] [address] [address] [place] [address] * (ABNORMAL) APTT (Activated Partial Thromboplastin Time) (08/18/2023 6:42 AM CDT) Activated Partial Thrombopl Time, P 61(H) 25 - 37 sec 08/18/2023 7:28 AM CDT DTL Blood (Blood, Venous) 08/18/2023 6:42 AM CDT 08/18/2023 7:04 AM CDT Boubacar Brock M.D. LAB BLOOD ADD-ON [facility] [address] [place], [place] [address] [address] [place] [address] * (ABNORMAL) APTT (Activated Partial Thromboplastin Time) (08/17/2023 11:04 PM CDT) Pathologist [facility] Activated Partial Thrombopl Time, P 40(H) 25 - 37 sec 08/17/2023 11:46 PM CDT DT Blood (Blood, Venous) 08/17/2023 11:04 PM CDT 08/17/2023 11:31 PM CDT Boubacar Brock M.D. LAB BLOOD ADD-ON [facility] [address] [place], [place] [address] [address] [place] [address] * US Lower Extremity Veins Bilateral (08/17/2023 [...] and management can be found on the Mobile Backstage site. Link [email or web address] Findings discussed with ??Tayler Greenwood, ?? ([id number]) on 08/17/2023 7:11 PM. Procedure Note Jj [...] can be found on theAskMayoExpert site. [email or web address] Findings discussed with Tayler Greenwood MD ([id number]) on 08/17/2023 7:11 PM. IMPRESSION: 1. 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 2. No acute left-sided DVT. Corin Ring M.D. IMPrieto US PROCEDURES * APTT (Activated Partial Thromboplastin Time) (08/17/2023 4:56 PM CDT) Activated Partial Thrombopl Time, P 29 25 - 37 sec 08/17/2023 5:10 PM CDT STMA Blood (Blood, Venous) 08/17/2023 4:56 PM CDT 08/17/2023 5:00 PM CDT Paula Hernandez M.D. LAB BLOOD ADD-ON Performing Organization Address [facility] Co de Phone Number [facility] [address] [place] [address], [facility] [address] [place] [address] * ECG 12 Lead (08/16/2023 9:43 PM CDT) Ventricular Rate ECG/Min 134 BPM MUSE NE Interval 136 ms MUSE QRSD Interval 76 ms MUSE QT Interval 298 ms MUSE QTC Interval 445 ms MUSE P [place] 29 degrees MUSE R [place] -6 degrees MUSE T Wave [place] 21 degrees MUSE 08/16/2023 9:43 PM CDT [...] Azar M.D. ECG ORDERABLES Performing Organization Address [facility] Co de Phone Number MUSE NA [...] CDT Geneva Azar M.D. LAB BLOOD ADD-ON [address] [address], [facility] [address] [address] * (ABNORMAL) Basic Metabolic Panel (08/16/2023 9:40 PM CDT) [facility] Potassium, S 3.9 3.6 - 5.2 [...] Geneva Azar M.D. LAB BLOOD ADD-ON [facility] [address] [place] [address], [facility] DTL [facility] [address] [place] [address] * Transfuse Red Blood Cells : (08/16/2023 12:04 PM CDT) Corin Ring M.D. BLOOD TRANSFUSION OR DERABLES * Transfuse Red Blood Cells : , 1 Units (08/16/2023 12:04 PM CDT) Corin Ring M.D. BLOOD TRANSFUSION OR DERABLES * (ABNORMAL) Basic Metabolic Panel (08/16/2023 3:10 AM CDT) [facility] Potassium, S 4.2 3.6 - 5.2 [...] M.D. LAB BLOOD ADD-ON Performing Organization Address City/[facility]/ZIP Co de Phone Number [facility] [address] [place] [address], [facility] DTPro[facility] [address] [place] [address] * (ABNORMAL) CBC without Differential (08/16/2023 3:10 [...] LAB BLOOD ADD-ON [facility] [address] [place] [address], [facility] DTL [facility] [address] [place] [address] * (ABNORMAL) CBC with Differential, Blood (08/15/2023 3:58 PM CDT) [facility] Hemoglobin 9.0(L) 13.2 - 16.6 g/dL [...] Alberto Henson M.D. LAB BLOOD ADD-ON [facility] [address] [place] [address], [facility] DTL [facility] [address] [place] [address] DHPM [facility] [address] [place] [address] * DX Abdomen 1 View (08/15/2023 1:19 [...] CDT 08/15/2023 12:03 PM CDT Rae Gonzalez AWAKE OVERNIGHT COUNSELOR, GOLD LAYER, DNAP LAB BLOO D NON ADD-ON [facility] [address] [place] [address], [facility] [address] [place] [address] * Lactate, B - Intra-op (08/15/2023 11:56 AM CDT) Lactate, B 1.1 0.5 - 2.2 mmol/L 08/15/2023 12:06 PM CDT STMA Blood (Blood, Venous) 08/15/2023 11:56 AM CDT 08/15/2023 12:03 PM CDT Hayde Song M.D. LAB BLOOD NON ADD-O N [facility] [address] [place] [address], [facility] [address] [place] [address] * (ABNORMAL) Glucose, Whole Blood (08/15/2023 11:56 AM CDT) Pathologist [facility] Glucose 144(H) 70 - 140 mg/dL 08/15/2023 12:[address] [facility] Blood (Blood, Arterial Line) 08/15/2023 11:56 AM CDT 08/15/2023 12:03 PM CDT Hayde Song M.D. LAB BLOOD ADD-ON [facility] [address] [place] [address], [facility] [address] [place] [address] * Potassium, Blood (08/15/2023 11:56 AM CDT) Potassium, B 4.3 3.6 - 5.2 mmol/L 08/15/2023 12:[address] [facility] Blood (Blood, Arterial Line) 08/15/2023 11:56 AM CDT 08/15/2023 12:03 PM CDT Hayde Song M.D. LAB BLOOD NON ADD-O N [facility] [address] [place], [place] [address] [place] [address] [address] [place] [address] * Sodium, B (08/15/2023 11:56 AM CDT) Sodium, B 135 135 - 145 mmol/L 08/15/2023 12:[address] [facility] Blood (Blood, Arterial Line) 08/15/2023 11:56 AM CDT 08/15/2023 12:03 PM CDT Narrative Authorizing Provider Result bAdifatah Song M.D. LAB BLOOD NON ADD-O N Performing Organization Address City/[facility]/ZIP Co de Phone Number [facility] [address] [place], [place] [address] [place] [address] 200 [place] [address] * (ABNORMAL) Calcium, Ionized (08/15/2023 11:56 AM CDT) Calcium, Ionized, B 4.53(L) 4.65 - 5.30 mg/dL 08/15/2023 12:[address] Blood (Blood, Arterial Line) 08/15/2023 11:56 AM CDT 08/15/2023 12:03 PM CDT Hayde Song M.D. LAB BLOOD NON ADD-O N [facility] [address] [place] [address], [facility] [address] [place] [address] * (ABNORMAL) Blood Gas with Coox, Arterial [...] M.D. LAB BLOOD NON ADD-O N [facility] [address] [place] [address], [facility] [address] [place] [address] * [place] Fluoro Less Than 1 Hour [...] CDT 08/15/2023 10:28 AM CDT Rae Gonzalez AWAKE OVERNIGHT COUNSELOR, GOLD LAYER, DNAP LAB BLOO D NON ADD-ON [facility] [address] [place] [address], [facility] [address] [place] [address] * Lactate, B - Intra-op (08/15/2023 10:28 AM CDT) Lactate, B 1.1 0.5 - 2.2 mmol/L 08/15/2023 10:30 AM CDT STMA Blood (Blood, Venous) 08/15/2023 10:28 AM CDT 08/15/2023 10:28 AM CDT Hayde Song M.D. LAB BLOOD NON ADD-O N Performing Organization Address City/[facility]/ZIP Co de Phone Number [facility] [address] [place] [address], [facility] [address] [place] [address] * Glucose, Whole Blood (08/15/2023 10:28 AM CDT) Glucose 134 70 - 140 mg/dL 08/15/2023 10:30 AM CDT STMA Blood (Blood, Arterial Line) 08/15/2023 10:28 AM CDT 08/15/2023 10:28 AM CDT Hayde Song M.D. LAB BLOOD ADD-ON [facility] [address] [place] [address] * Potassium, Blood (08/15/2023 10:28 AM CDT) Potassium, B 4.1 3.6 - 5.2 mmol/L 08/15/2023 10:31 AM CDT STMA Blood (Blood, Arterial Line) 08/15/2023 10:28 AM CDT 08/15/2023 10:28 AM CDT Hayde Song M.D. LAB BLOOD NON ADD-O N [facility] [address] [place] [address] * Sodium, B (08/15/2023 10:28 AM CDT) Sodium, B 135 135 - 145 mmol/L 08/15/2023 10:30 AM CDT STMA Blood (Blood, Arterial Line) 08/15/2023 10:28 AM CDT 08/15/2023 10:28 AM CDT Hayde Song M.D. LAB BLOOD NON ADD-O N [facility] [address] [place] [address] * (ABNORMAL) Calcium, Ionized (08/15/2023 10:28 AM CDT) Calcium, Ionized, B 4.25(L) 4.65 - 5.30 mg/dL 08/15/2023 10:31 AM CDT STMA Blood (Blood, Arterial Line) 08/15/2023 10:28 AM CDT 08/15/2023 10:28 AM CDT Hayde Song M.D. LAB BLOOD NON ADD-O N [facility] [address] [place], [place] [address] [place] [address] [address] [place] [address] * (ABNORMAL) Blood Gas with Coox, Arterial (08/15/2023 10:28 AM CDT) [facility] Signature pO2 171(H) 83 - 108 [...] M.D. LAB BLOOD NON ADD-O N [facility] [address] [place] [address], [facility] [address] [place] [address] * Bacteria / Yomaira Culture, Blood #2 (08/15/2023 3:33 AM CDT) Bacteria/Leyla da Culture, Blood No growth after 5 days of incubation. 08/20/2023 6:02 AM CDT DTL Blood (Blood, Peripheral Draw) 08/15/2023 3:33 AM CDT 08/15/2023 5:58 AM CDT Comment:Specimen Source Site : Blood Narrative [facility] - 08/20/2023 6:02 AM CDT Received Bactec aerobic and Bactec anaerobic bottles Carlos Alberto Henson M.D. [facility] ORDERABLES [facility] [address] [place] [address], [facility] DTPro[facility] [address] [place] [address] * (ABNORMAL) Basic Metabolic Panel (08/15/2023 3:31 [...] LAB BLOOD ADD-ON Performing Organization Address [facility] Co de Phone Number [facility] [address] [place] [address] * Bacteria / Yomaira Culture, Blood #1 (08/15/2023 3:31 AM CDT) Pathologist [facility] Bacteria/Leyla da Culture, Blood No growth after 5 days of incubation. 08/20/2023 6:02 AM CDT DTL Blood (Blood, Peripheral Draw) 08/15/2023 3:31 AM CDT 08/15/2023 5:59 AM CDT Comment:Specimen Source Site : Blood Carlos Alberto Henson M.D. LAB MICROBIOLOGY - G ENERAL ORDERABLES Performing Organization Address [facility] Co de Phone Number [facility] [address] [place] [address], [place] [address] * (ABNORMAL) CBC with Differential, Blood (08/15/2023 [...] Alberto Henson M.D. LAB BLOOD ADD-ON [facility] [address] [place] [address], [facility] DTL [facility] [address] [place] [address] [facility] [address] [place] [address] * (ABNORMAL) CBC with Differential, Blood (08/14/2023 8:08 PM CDT) [facility] Hemoglobin 9.8(L) 13.2 - 16.6 [...] Alberto Henson M.D. LAB BLOOD ADD-ON [facility] [address] [place] [address], [facility] STMA [facility] [address] [place] [address] [facility] [address] [place] [address] * Transfuse Red Blood Cells : , 2 Units (08/14/2023 6:55 PM CDT) Carlos Alberto Masseyi M.D. BLOOD TRANSFUSION OR DERABLES * Transfuse Red Blood Cells : (08/14/2023 6:55 PM CDT) Carlos Alberto Natividad Temple BLOOD TRANSFUSION OR DERABLES * Transfuse Red Blood Cells : (08/14/2023 3:40 PM CDT) [facility] Natividad Temple BLOOD TRANSFUSION OR DERABLES * (ABNORMAL) CBC with Differential, Blood (08/14/2023 3:18 AM CDT) [facility] Hemoglobin 7.6(L) 13.2 - 16.6 g/dL [...] Alberto Henson M.D. LAB BLOOD ADD-ON [facility] [address] [place] [address], [facility] STMA [facility] [address] [place] [address] [facility] [address] [place] [address] * (ABNORMAL) Basic Metabolic Panel (08/14/2023 3:18 [...] M.D. LAB BLOOD ADD-ON Performing Organization Address City/[facility] Co de Phone Number [facility] [address] [place] [address], [facility] DTPro[facility] [address] [place] [address] * Type and Screen (with Reflex Antibody ID) (08/13/2023 7:35 PM CDT) Pathologist [facility] ABORh O Pos Not applicable 08/13/2023 7:58 PM CDT STRM Antibody Screen Negative Negative 08/13/2023 8:13 PM CDT STRM Type & Screen Expiration 08/16/2023 23:59 08/13/2023 7:58 PM CDT STRM Testing Location [place] DEFAULT 08/13/2023 7:39 PM CDT STRM Blood (Blood, Venous) 08/13/2023 7:35 PM CDT 08/13/2023 7:39 PM CDT Carlos Alberto Henson M.D. LAB BLOOD BANK TEST ORDERABLES Performing Organization Address [facility] Co de Phone Number [facility] [address] [place] [address], [facility] [address] [place] [address] * (ABNORMAL) Bacteria / Yomaira Culture, Blood #1 (08/13/2023 7:35 PM CDT) Pathologist [facility] Bacteria/Cand jessica Culture, Blood ESCHERICHIA COLI Growth after 11 Hours (A) 08/16/2023 11:17 AM CDT DTL Comment: 3 of 3 Bottles, Susceptibilities performed on another specimen [id number] Blood (Blood, Peripheral Draw) 08/13/2023 7:35 PM CDT 08/13/2023 8:15 PM CDT Comment:Specimen Source Site : Blood Carlos Alberto Henson M.D. LAB MICROBIOLOGY - G ENERAL ORDERABLES Performing Organization Address City/[facility] Co de Phone Number [facility] [address] [place] [address], [facility] DTL [facility] [address] [place] [address] * ECG 12 Lead (08/13/2023 7:02 PM CDT) Ventricular Rate ECG/Min 128 BPM MUSE NE Interval 138 ms MUSE QRSD Interval 64 ms MUSE QT Interval 304 ms MUSE QTC Interval 443 ms MUSE P [place] 45 degrees MUSE R [place] 34 degrees MUSE T Wave [place] 46 degrees MUSE 08/13/2023 7:02 PM CDT 08/13/2023 7:13 PM CDT Impressions MUSE - 08/13/2023 7:13 PM CDT Sinus tachycardia Otherwise normal ECG No previous ECGs available Reviewed by BETTY Walton Narrative Procedure Note Lucas Lee M.D. - 08/13/2023 IMPRESSION: Sinus tachycardia Otherwise normal ECG No previous ECGs available Reviewed by BETTY Walton Toby Wright ECG ORDERABLES Performing Organization Address [facility] Co de Phone Number MUSE NA [...] Comment:Specimen Source Site : Blood Narrative [facility] - 08/16/2023 11:17 AM CDT Received [...] Carlos Alberto Henson M.D. LAB MICROBIOLOGY - [facility] ORDERABLES [facility] [address] [place] [address], [facility] DTL [facility] [address] [place] [address] * Magnesium (08/13/2023 5:27 PM CDT) Magnesium, S 1.9 1.7 - 2.3 mg/dL 08/13/2023 6:12 PM CDT DTL Blood (Blood, Venous) 08/13/2023 5:27 PM CDT 08/13/2023 5:58 PM CDT Carlos Alberto Henson M.D. LAB BLOOD ADD-ON Performing Organization Address [facility]/ZIP Co de Phone Number [facility] [address] [place] [address], [facility] DTPro[facility] [address] [place] [address] * (ABNORMAL) Hepatic Function Panel (08/13/2023 5:27 [...] M.D. LAB BLOOD ADD-ON Performing Organization Address City/[facility]/ZIP Co de Phone Number [facility] [address] [place] [address], [facility] DTL [facility] [address] [place] [address] * (ABNORMAL) Basic Metabolic Panel (08/13/2023 5:27 PM CDT) Pathologist [facility] Potassium, P 5.5(H) 3.6 - 5.2 mmol/L [...] LAB BLOOD ADD-ON [facility] [address] [place] [address], [facility] [address] [place] [address] * Prothrombin Time (PT) (08/13/2023 5:27 PM [...] Alberto Henson M.D. LAB BLOOD ADD-ON [facility] [address] [place] [address], [facility] [address] [place] [address] * (ABNORMAL) CBC with Differential, Blood (08/13/2023 5:27 PM CDT) Pathologist [facility] Hemoglobin 10.0(L) 13.2 - 16.6 g/dL 08/13/2023 [...] M.D. LAB BLOOD ADD-ON Performing Organization Address City/[facility]/ZIP Co de Phone Number [facility] [address] [place] [address], [facility] STMA [facility] [address] [place] [address] DHPM [facility] [address] [place] [address] * (ABNORMAL) Dipstick, Urine (08/13/2023 5:07 PM [...] Alberto Henson M.D. LAB URINE ORDERABLES [facility] [address] [place] [address], [facility] [address] [place] [address] * Osmolality, Urine (08/13/2023 5:07 PM CDT) Pathologist [facility] Osmolality, U 351 150 - 1150 mOsm/kg 08/13/2023 7:46 PM CDT DTL Urine 08/13/2023 5:07 PM CDT 08/13/2023 5:45 PM CDT Carlos Alberto Henson M.D. LAB URINE ORDERABLES [facility] [address] [place] [address] * (ABNORMAL) Microscopic Manual (08/13/2023 5:07 PM CDT) Pathologist [facility] Microscopy Abnormal 08/13/2023 7:57 PM CDT DTL RBC >100(A) <3 /hpf 08/13/2023 7:57 PM CDT DTL Dysmorphic RBC <25 <25 % 08/13/2023 7:57 PM CDT DTL WBC 51-100(A) /hpf 08/13/2023 7:57 PM CDT DTL Comment: ----REFERENCE VALUE---- <4 ??(Males) <11 (Females) Urine 08/13/2023 5:07 PM CDT 08/13/2023 5:45 PM CDT Carlos Alberto Henson M.D. LAB URINE ORDERABLES [facility] [address] [place] [address] * pH, Random, Urine (08/13/2023 5:07 PM CDT) Pathologist [facility] pH, Random, U 7.0 4.5 - 8.0 08/13/2023 7:46 PM CDT DTL Urine 08/13/2023 5:07 PM CDT 08/13/2023 5:45 PM CDT Carlos Alberto Henson M.D. LAB URINE ORDERABLES [facility] [address] [place] [address], [facility] DTPro[facility] [address] [place] [address] * (ABNORMAL) Bacterial Culture, Aerobic + Susceptibility, [...] LAB MICROBIOLOGY - [facility] ORDERABLES [address] [place] [address] * (ABNORMAL) Urinalysis, with Microscopic: Urine, Midstream [...] CDT DTL Predicted 24 [place] [address](H) <229 mg/24 h 08/13/2023 8:50 PM CDT DTL Predicted Range [id number] mg/24 h 08/13/2023 8:50 PM CDT DTL Comment Micro done on <2.5 mL 08/13/2023 7:55 PM CDT DTL Urine (Urine, Midstream) 08/13/2023 5:07 PM CDT 08/13/2023 5:44 PM CDT Carlos Alberto Henson M.D. LAB URINE ORDERABLES [facility] [address] [place] [address], [place] DTL [facility] [address] [place] [address] * Interpretation of Outside CT Abdomen and [...] use home supply. 08/17/23: Id'ed by [facility] Rx# [id number], filled 07/22/23. HAZARDOUS - Handle with care. Swallow whole. Do NOT crush, chew or open capsule. Given 08/26/2023 9:12 AM CDT 120 mg Given 08/25/2023 9:08 AM CDT 120 mg Given 08/24/2023 9:12 AM CDT 120 mg fat emulsion mez-fox-babkp & fish oil infusion 50 g (SMOFlipid) [...] Lactated Ringer's 1.5 mL/kg/hr ? 75 kg [place] weight (112.5 mL/hr, rounded to 113 mL/hr), intravenous, Continuous, Starting on Tue08/22/23 at 1030, Conditional Phase Pre-Gastrografin Administration. (Rate = 1.5 mL/kg/hr ideal body weight) Lactated Ringer's 0.75 mL/kg/hr ? 75 kg [place] weight (56.25 mL/hr, rounded to 56.3 mL/hr), [...] Potassium, Replace Potassium per: Standard Schedule New 08/22/2023 1:13 PM CDT 10 mEq 100 [...] See RNarendra)1750 (Given - Provider: Paola Salazar RJonahNJonah) 0627 (Given - Provider: Edith Simental R.N.)1600 (Due) clopidogreL tablet 75 mg (PLAVIX) 75 mg, oral, Daily, First dose on Tue08/26/23 at 0900 0915 (Given - Provider: Lupe Valdez R.N.) docusate sodium liquid 100 mg (COLACE) 100 mg, oral, 2 times daily, First dose (after last modification) on Tue08/23/23 at 2100 0852 (Not Given - Provider: Tayler Forrest RNarendra - Reason: Patient/family refused)2151 (Given - Provider: Fatuma See R.N.) 0852 (Not Given - Provider: Tayler Forrest RNarendra - Reason: Patient/family refused)2131 (Given - Provider: Paola Salazar R.N.) 0915 (Given - Provider: Lupe Valdez R.N.) enzalutamide capsule 120 mg (XTANDI) PATIENT'S OWN MED 120 mg, oral, Daily, First dose (after last modification) on 08/17/23 at 1230, Patient may use home supply. 08/17/23: Id'ed by [facility]. [facility] [place] Rx# [id number], filled 07/22/23. HAZARDOUS - Handle with care. Swallow whole. Do NOT crush, chew or open capsule. 09 (Given - Provider: Tayler Forrest R.N. - Comment: Pat Murray, -2nd RN) 09 (Given - Provider: Tayler Forrest R.N. - Comment: Pt 's own med from home) 911 (Given - Provider: Lupe Valdez R.N.) fat emulsion jzy-ilz-pjzse & fish oil infusion 50 g (SMOFlipid) [...] Forrest R.N. - Comment: verified by Paola aSlazar RN)2125 (New Bag - Provider: Paola Salazar R.N.)2328 (Handoff - Provider: Edith Simental R.N. - Comment: herbert knight RN) 0407 (Rate/Dose Change - Provider: Edith Simental R.N.)0729 (Handoff - Provider: Lupe Valdez R.N. - Comment: Verified with JAMEL Sharma)1153 (Stopped - Provider: Lupe Valdez R.N.) Lactated Ringer's 1.5 mL/kg/hr ? 75 kg [place] weight (112.5 mL/hr, rounded to 113 mL/hr), intravenous, Continuous, Starting on Tue08/22/23 at 1030, Conditional Phase Pre-Gastrografin Administration. (Rate = 1.5 mL/kg/hr ideal body weight) Lactated Ringer's 0.75 mL/kg/hr ? 75 kg [place] weight (56.25 mL/hr, rounded to 56.3 mL/hr), [...] [id number] documented in this encounter Care Teams Nuclear Reactor Technician Relationship Specialty Start Date End Date Elsewhere, Pcp PCP - General Internal Medicine 08/13/23 documented as of this encounter
--- OUTSIDE RECORDS SUMMARY | 2023-11-04 12:34 | XMS_ITS | Encounter Summary ---
Author Organization [facility] Address [address] [place] [address] Care Team Providers Care Anesthesiology Teacher Name Role Phone Elsewhere, Pcp Primary Care Provider Unavailabl e Encounter Details Date Type Department Care Team (Late st Contact Info) Description 08/15/2023 7:55 AM CDT - 08/15/2023 11:23 AM CDT Surgery RST ROMB MAIN OR [address] [place] [address] Boubacar Brock M.D. [address] [place] [address] Palliative EXPLORATORY LAPAROTOMY, CYSTOTOMY CLOSURE, RIGHT URETERAL STENT EXCHANGE Social History Tobacco Use Types Packs/Day Years Used Date Smoking Tobacco: Never Smokeless Tobacco: Never [facility] Utilities Answer Date Recorded In the [...] living situation today? I have a [facility] place to live 08/13/2023 Sex and [...] M.D.Wen, Lexiaochuan, M.D.Premo, Hayley, M.D.Botkin, Hannah, M.D. [facility] ROMB OR DISCHARGE DISPOSITION Home or Self Care [1] ACTIVE ISSUES REQUIRING FOLLOW UP OUTPATIENT FOLLOW UP Scheduled Appointments 08/26/2023 1:00 PM [facility]ESH[facility] VERAS [facility] Radiology For appointment details refer [...] he felt completely obstructed and presented to [place] [facility]. [place] Course Attempted Tabares insertion but bladder irrigation was unsuccessful on multiple attempts. Hung 1U pRBC's. Given some volume and transferred to [facility] ICU ICU Course Urology [...] CONSULT TO NUTRITION SUPPORT IP CONSULT TO MANAGER FORMS WOUND CARE CONDITION AT DISCHARGE stable Discharge [...] he felt completely obstructed and presented to [place] [facility]. [place] Course Attempted Tabares insertion but bladder irrigation was unsuccessful on multiple attempts. Hung 1U pRBC's. Given some volume and transferred to [facility] ICU ICU Course Urology [...] PM CDT You were discharged from the [facility] Urology Surgery - Chief A - Blue Service. Please identify this service name if you call with questions after hospitalization. * Attachments The following attachments cannot be sent through Care Everywhere. * Bacitracin (On the skin) (Citizen Of [place]) * Cefdinir (By mouth) (Citizen [place]) * Trospium (By mouth) (Citizen Of [place]) documented in this encounter Medications at Time [...] another provider. * Chary Diamond M.A., O.T., [facility] - 08/26/2023 10:21 AM CDT Occupational Therapy [facility] Inpatient Treatment SUBJECTIVE Patient's Name: Kalen Vega Referring/Attending Provider: Boubacar Brock M.D. Reason for Referral: Occupational Therapy Evaluation and Treatment History of Present Illness: Kalen Vega is a 83 y.o. male who was admitted to [facility] in [place] on 08/13/2023 for Hematuria [R31.9]. Precautions Other Precautions: Abdominal, fall precautions, monitor tachycardia and hypertension Pain Assessment: Pain not reported during session. Subjective Comments: Agreeable to therapy session. Team Communication: The patient's status was discussed and coordination of care occurred with RN, Family/Caregiver, nurse tech Family/Caregiver Present: son and [id number] OBJECTIVE Vital Signs: Vitals not formally assessed during session. No concerns during chart review and the patient had nosigns or symptoms consistent with vital changes during therapy session. Outcome Measures: [facility] Inpatient Short Form: Putting on and [...] at or below 17 Clinicians answer the [facility] Inpatient Short Form based on observed [...] through pant leg first. - Adaptive Equipment: Brush Polisher TOILETING - Assist Level: Maximal Assist - [...] (Edge of bed) - Assist Level: Modified [place] - Equipment: bed rail - Therapist Delivery: assessed, instructed, assisted - Adaptive Equipment: leg behavioral therapy coordinator trialed ; however, patient able to move [...] extremity (stiff knee) first. Recommended adaptive equipment: Brush Polisher. Toileting - Patient instructed on accurate positioning [...] maximal exertion Handouts provided: Bathroom Safety Equipment [id number], Techniques to Help You Save Energy [id number] Patient was left in bedside chair with [...] Usama 6C -room 121 ASSESSMENT / PLAN REFRIGERATION LEADteller manager met with patient and son Kar to inform them of home health care acceptance for PT/OT. Patient's son Kar and [id number] will provide transportation at the time of discharge. PLAN Patient to discharge home with home health care. Home Medical Care - Admitted Since 08/13/2023 Service Provider Selected Services Address Phone Fax Patient Preferred [employer] [facility] [address] [facility] [address] -- Dairy Inspector: Ghazal NURSING: - Complete documentation in the Discharge Navigator including Nursing Report Info and Facility/NextLevel of Care Info - Call report and arrange for the patient's first visit - Send After Visit Summary and required packet of dismissal information with patient, including advance directive. PRIMARY SERVICE: - Please provide a non-[facility] home health order for: physical therapy and [...] be provided by family--patient's son Kar and innssetj-db-xsk. 3. waiter/waitress informal recommended reaching out to family, friends, and neighbors for assistance. 4. waiter/waitress informal provided information regarding the dismissal process. Damaris [...] Reviewed with patient #1 Hematuria Please page [facility] ([phone]) or [facility] ([phone]) Nutrition Support Service pager with questions. * Emeterio Buchanan P.T., D.P.T., GCS - 08/25/2023 9:35 AM CDT Physical Therapy Inpatient Treatment SUBJECTIVE Patient's Name: Kalen Vega Referring/Attending Provider: Boubacar Brock M.D. Reason for Referral: Physical Therapy Evaluate and Treat History of Present Illness: Kalen Vega is a 83 y.o. male who was admitted to [facility] in [place] on 08/13/2023 for Hematuria [R31.9] Precautions Other [...] throughout session; within normal ranges. Outcome Measures: -[facility] Inpatient Short Form: AM-[facility] Basic Mobility (V.2) How much help [...] 3-5 steps with a railing?: A Little AM-[facility] Basic Mobility (V.2) Raw Score: 18 AM-[facility] Basic Mobility (V.2) Standardized Score: 41.05 Interpretation: Based on scoring guidelines using the raw score value: Those going to home had an average score at or above 18 Those going to facility had an average score at or below 17 Clinicians answer the -[facility] Inpatient Short Form based on observed [...] - 08/25/2023 9:18 AM CDT Occupational Therapy [facility] Inpatient Treatment SUBJECTIVE Patient's Name: Kalen Vega Referring/Attending Provider: Boubacra Brock M.D. Reason for Referral: Occupational Therapy Evaluation and Treatment History of Present Illness: Kalen Vega is a 83 y.o. male who was admitted to [facility] in [place] on 08/13/2023 for Hematuria [R31.9]. Precautions Other Precautions: Abdominal, fall precautions, monitor tachycardia and hypertension Pain Assessment: Pain not reported during session. Subjective Comments: Agreeable to therapy session. Team Communication: The patient's status was discussed and coordination of care occurred with RN, PT OBJECTIVE Vital Signs: Vitals monitored throughout session; within normal ranges. Outcome Measures: [facility] Inpatient Short Form: Putting on and [...] at or below 17 Clinicians answer the [facility] Inpatient Short Form based on observed [...] including figure four technique. Recommended adaptive equipment: Brush Polisher and Sock Aid. Toileting - Patient instructed [...] and modification tools as needed including leg behavioral therapy coordinator and/or bed adjustments. Bathroom DME: - Educated [...] in place draining clear yellow urine I/O ([id number]): Fifty-five cc serosanguineous from the drain 1 [...] have him follow up with his local registered occupational therapist Comorbidities: --history of DVT status post IVC [...] discussed with Dr. Venegas, chief urology resident documentation nurse. Pager during business hours: [phone] Pager after hours: [phone] * Emeterio Buchanan P.T., D.P.T., GCS - 08/24/2023 10:46 AM CDT Physical Therapy Inpatient Treatment SUBJECTIVE Patient's Name: Kalen Vega Referring/Attending Provider: Boubacar Brock M.D. Reason for Referral: Physical Therapy Evaluate and Treat History of Present Illness: Kalen Vega is a 83 y.o. male who was admitted to [facility] in [place] on 08/13/2023 for Hematuria [R31.9] Precautions Other [...] %, and O2flow: Room air Outcome Measures: [facility] Inpatient Short Form: -[facility] Basic Mobility (V.2) How much help [...] 3-5 steps with a railing?: A Lot -[facility] Basic Mobility (V.2) Raw Score: 17 -[facility] Basic Mobility (V.2) Standardized Score: 39.67 Interpretation: Based on scoring guidelines using the raw score value: Those going to home had an average score at or above 18 Those going to facility had an average score at or below 17 Clinicians answer the [facility] Inpatient Short Form based on observed [...] baseline. PT Goal #2: Patient will perform xjt-eu-fjftq transfer with modified independence and least restrictive [...] Buchanan P.T., D.P.T., GCS * Tayler Mckeon, PharmJonahD., R.Ph. - 08/24/2023 10:00 AM CDT Pharmacist [...] Total Kcal/day: 1370 based on 84 % [place] Non-standard additives: K 80 mEq Phos 30 [...] magnesium, phosphorus tomorrow. #1 Hematuria Please page [facility] ([phone]) or [facility] ([phone]) Nutrition Support Service pager with questions. * [...] catheter in place draining light smith I/O ([id number]): Forty-two cc serosanguineous from the drain 2.2 [...] 2.5 mg BID eliquis initiated 08/15 per [facility] med curbside recs --transition from eliquis [...] have him follow up with his local registered occupational therapist Comorbidities: --history of DVT status post IVC [...] discussed with Dr. Venegas, chief urology resident documentation nurse. Pager during business hours: [phone] Pager after hours: [phone] * Deanne Mike L.G.S.W., M.S.W. - 08/23/2023 11:25 AM CDT SUBJECTIVE Social Work spoke with [facility]. They cannot provide chcf at this time. [...] discharge date of 08/24/23-08/26/23. Referrals sent: [facility] [place] - [facility] (out of service area) [facility] ASSESSMENT / PLAN ASSESSMENT Patient has robust family support including a son living with him. PLAN Patient desires home health care through [facility]. Social Work will continue to follow to provide support. Social Work will continue to assist with discharge needs. Shorty Sun, M.S.W. 08/23/23 * Jazmine Benítez, RRitesh., C.W.C.N. - 08/23/2023 11:10 AM CDT [place] [...] stent and hematuria who is transferred from [place] ED with 3 days of hematuria and [...] None Unable to Measure Y *Wound Bed Closed;[place];Red Tissue Exposed None Odor None *Exudate Amount [...] 30 minutes > 30 minutes Ongoing management Nursing;Wound/furniture reproducer Partial head to toe skin assessment completed [...] AM CDT * Emeterio Buchanan P.T., D.P.T., [facility] - 08/23/2023 11:02 AM CDT Physical Therapy Inpatient Treatment SUBJECTIVE Patient's Name: Kalen Vega Referring/Attending Provider: Boubacar Brock M.D. Reason for Referral: Physical Therapy Evaluate and Treat History of Present Illness: Kalen Vega is a 83 y.o. male who was admitted to [facility] in [place] on 08/13/2023 for Hematuria [R31.9] Precautions Other [...] 3-5 steps with a railing?: A Lot -[facility] Basic Mobility (V.2) Raw Score: 17 [facility] Basic Mobility (V.2) Standardized Score: 39.67 Interpretation: Based on scoring guidelines using the raw score value: Those going to home had an average score at or above 18 Those going to facility had an average score at or below 17 Clinicians answer the [facility] Inpatient Short Form based on observed [...] baseline. PT Goal #2: Patient will perform coi-de-okzwi transfer with modified independence and least restrictive [...] D.P.T., GCS * Demarco Salazar Pharm.D., R.Ph., [facility] - 08/23/2023 10:19 AM CDT Pharmacist Progress [...] Total Kcal/day: 1370 based on 84 % [place] Non-standard additives: MAX chloride Thiamine 100 mg [...] magnesium, phosphorus tomorrow. #1 Hematuria Please page [facility] ([phone]) or [facility] ([phone]) Nutrition Support Service pager with questions. * Ivy Hernandez O.T. - 08/23/2023 8:30 AM CDT Occupational Therapy [facility] Inpatient Treatment SUBJECTIVE Patient's Name: Kalen Vega Referring/Attending Provider: Boubacar Brock M.D. Reason for Referral: Occupational Therapy Evaluation and Treatment History of Present Illness: Kalen Vega is a 83 y.o. male who was admitted to [facility] in [place] on 08/13/2023 for Hematuria [R31.9]. Precautions Other Precautions: Abdominal, fall precautions, monitor tachycardia and hypertension Pain Assessment: Pain not reported during session. Subjective Comments: Agreeable to therapy session. Team Communication: The patient's status was discussed and coordination of care occurred with RN, PT OBJECTIVE Vital Signs: Vitals monitored throughout session; within normal ranges. Outcome Measures: [facility] Inpatient Short Form: Putting on and [...] at or below 17 Clinicians answer the [facility] Inpatient Short Form based on observed [...] catheter in place draining clear yellow I/O ([id number]): 73 cc serosanguineous from the drain Seven [...] locallyfor I. 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 [facility] Summary: Diet: NPO, TPN Activity: Ad [...] discussed with Dr. Venegas, chief urology resident documentation nurse. Pager during business hours: [phone] Pager after hours: [phone] * Chary Diamond M.A., O.T., BCP - [...] OBJECTIVE Patient is anticipated to remain at [place] for 3-5 days. Referrals sent: [facility] ASSESSMENT / PLAN [...] was admitted to [facility] in [place] on 08/13/2023 for Hematuria [R31.9] Precautions Other [...] hypotension or respiratory distress. . Outcome Measures: AM-[facility] Inpatient Short Form: AM-PAC Basic Mobility [...] AM-[facility] Basic Mobility (V.2) Raw Score: 17 -[facility] Basic Mobility (V.2) Standardized Score: 39.67 Interpretation: Based on scoring guidelines using the raw score value: Those going to home had an average score at or above 18 Those going to facility had an average score at or below 17 Clinicians answer the -[facility] Inpatient Short Form based on observed [...] baseline. PT Goal #2: Patient will perform xdo-hf-ngwou transfer with modified independence and least restrictive [...] Buchanan P.T., D.P.T., GCS * Demarco Salazar, Karyn, R.Ph., BCPS - 08/22/2023 10:57 AM CDT [...] Total Kcal/day: 1370 based on 84 % [place] Non-standard additives: MAX chloride Thiamine 100 mg [...] place draining light smith colored urine I/O ([id number]): CBI on slow drip 75 cc serosanguineous [...] 2.5 mg BID eliquis initiated 08/15 per [facility] med curbside recs --transition from eliquis [...] have him follow up with his local registered occupational therapist Comorbidities: --history of DVT status post IVC [...] discussed with Dr. Venegas, chief urology resident documentation nurse. Pager during business hours: [phone] Pager after hours: [phone] * Qamar Jim, PharmJonahD., R.Ph. - 08/21/2023 [...] Monitoring by aPTT guidance document in [employer]. Qaamr Jim Pharm.D., R.Ph. * Lizette Harvey M.D. [...] place draining clear smith colored urine I/O ([id number]): 1800 cc urine output 75 cc serosanguineous [...] have him follow up with his local registered occupational therapist Comorbidities: --history of DVT status post IVC [...] discussed with Dr. Venegas, chief urology resident documentation nurse. Pager during business hours: [phone] Pager after hours: [phone] * Lizette Harvey M.D. - 08/20/2023 8:08 [...] draining clear thin mer[place] colored urine I/O ([id number]): 240 cc p.o. intake 760 cc urine [...] 2.5 mg BID eliquis initiated 08/15 [facility] med curbside recs --transition from eliquis [...] have him follow up with his local registered occupational therapist Comorbidities: --history of DVT status post IVC [...] questions or concerns. Pager during business hours: [phone] Pager after hours: [phone] * Qamar Jim, PharmJonahD., R.Ph. - 08/20/2023 [...] Jim, PharmPerla., R.Ph. * Lisa Seaman, O.T., [facility] - 08/19/2023 2:26 PM CDT Occupational Therapy [facility] Inpatient Treatment SUBJECTIVE Patient's Name: Kalen Vega Referring/Attending Provider: Boubacar Brock M.D. Reason for Referral: Occupational Therapy Evaluation and Treatment History of Present Illness: Kalen Vega is a 83 y.o. male who was admitted to [facility] in [place] on 08/13/2023 for Hematuria [R31.9]. Precautions Other Precautions: Abdominal, fall precautions, monitor tachycardia and hypertension Pain Assessment: Pain not reported during session. Subjective Comments: Patient greeted in chair and agreeable to therapy session. Team Communication: The patient's status was discussed and coordination of care occurred with RN OBJECTIVE Vital Signs: Vitals monitored throughout session; within normal ranges. Outcome Measures: [facility] Inpatient Short Form: Putting on and [...] at or below 17 Clinicians answer the [facility] Inpatient Short Form based on observed [...] about patient's nutritional care please contact pager [phone] on weekdays or [phone] on weekends/holidays. NUTRITION ASSESSMENT: Mr. Vega is [...] care everywhere) ESTIMATED NEEDS: Total Calorie Needs: 6888-6623 calories/day Method to Estimate Energy Needs: kcal/kg [...] was admitted to [facility] in [place] on 08/13/2023 for Hematuria [R31.9] Precautions Other [...] mmHg O2: 96% Room air Outcome Measures: [facility] Inpatient Short Form: -[facility] Basic Mobility (V.2) How much help [...] 3-5 steps with a railing?: A Little -[facility] Basic Mobility (V.2) Raw Score: 18 -[facility] Basic Mobility (V.2) Standardized Score: 41.05 Interpretation: Based on scoring guidelines using the raw score value: Those going to home had an average score at or above 18 Those going to facility had an average score at or below 17 Clinicians answer the [facility] Inpatient Short Form based on observed [...] Ongoing PT Goal #2: Patient will perform jkc-jn-lwypu transfer with modified independence and least restrictive [...] in place draining clear pink urine I/O ([id number]): 370 p.o. intake 1 L urine output [...] 2.5 mg BID eliquis initiated 08/[facility] med [facility]bside recs --transition from eliquis [...] have him follow up with his local registered occupational therapist Comorbidities: --history of DVT status post IVC [...] questions or concerns. Pager during business hours: [phone] Pager after hours: [phone] * Lisa Seaman, O.TJonah, [facility] - 08/18/2023 11:15 AM CDT Occupational Therapy [facility] Inpatient Treatment SUBJECTIVE Patient's Name: Kalen Vega Referring/Attending Provider: Boubacar Brock M.D. Reason for Referral: Occupational Therapy Evaluation and Treatment History of Present Illness: Kalen Vega is a 83 y.o. male who was admitted to [facility] in [place] on 08/13/2023 for Hematuria [R31.9]. Precautions Other [...] pressure: 168/97 - nurse notified Outcome Measures: [facility] Inpatient Short Form: Putting on and [...] at or below 17 Clinicians answer the [facility] Inpatient Short Form based on observed [...] doffing over it last. Recommended adaptive equipment: Brush Polisher and Sock Aid. Patient was left in bedside chair, with nursing/REPOSSESSION AGENT at end of session with call light [...] Treatment Time (min): 26 min Tara Madden.Cooper, MOT * Scott Pina P.T., D.P.T. - 08/18/2023 8:18 AM CDT Physical Therapy Inpatient Treatment SUBJECTIVE Patient's Name: Kalen Vega Referring/Attending Provider: Boubacar Brock M.D. Reason for Referral: Physical Therapy Evaluate and Treat History of Present Illness: Kalen Vega is a 83 y.o. male who was admitted to [facility] in [place] on 08/13/2023 for Hematuria [R31.9] Precautions Other [...] at or below 17 Clinicians answer the [facility] Inpatient Short Form based on observed [...] following coordination of care occurred with the olive knocker/Caregiver Present: No Patient was left in bedside [...] Progressing PT Goal #2: Patient will perform cpm-qz-nfolr transfer with modified independence and least restrictive [...] in place draining clear pink urine I/O ([id number]): 1.2 L p.o. intake 1 L urine [...] locallyfor I. [facility] 2.5 mg BID eliquis initiated 08/[facility]bs[facility] recs --transition from eliquis [...] diet later today follow up vascular medicine [facility] Summary: Diet: currently limited clears Activity: Ad kong DVT PPX: heparin drip GI PPX: Pantoprazole Bowel Regimen:N/A IVF: none Abx/Microbiology: Ceftriaxone Pain Control: Tylenol, oxycodone 08/18. Scheduled trospium Home Meds Resumed: Metoprolol, tamsulosin, rosuvastatin Held Home Meds: None Consults: None Palua Hernandez M.D. 08/18/2023 6:02 AM CDT Please page the Urology Chief Service with questions or concerns. Pager during business hours: [phone] Pager after hours: [phone] * Tayler Greenwood M.D., M.Ed. - 08/17/2023 [...] MD, MEd * Alia Ruelas Pharm.D., R.Ph., [facility] - 08/17/2023 6:08 PM CDT Heparin Indication: [...] the patient follow up with his primary registered occupational therapist at discharge we will which we will [...] Status: Pharmacy Complete Set By: Irvin Franco PharmJonahDJonah, R.Ph. at 08/14/2023 10:22 AM Taking? Last [...] Ringer's Lactated Ringer's * Lisa Seaman, O.T., [facility] - 08/17/2023 10:47 AM CDT Occupational Therapy [facility] Inpatient Treatment SUBJECTIVE Patient's Name: Kalen Vega Referring/Attending Provider: Boubacar Brock M.D. Reason for Referral: Occupational Therapy Evaluation and Treatment History of Present Illness: Kalen Vega is a 83 y.o. male who was admitted to [facility] in [place] on 08/13/2023 for Hematuria [R31.9]. Precautions Other [...] at or below 17 Clinicians answer the AM-[facility] Inpatient Short Form based on observed [...] in place draining clear pink urine I/O ([id number]): NG tube 200 cc Two hundred sixty-five [...] since 08/11) -[facility]/antiplatelet. Theyfelt he no [...] questions or concerns. Pager during business hours: [phone] Pager after hours: [phone] * Audi De Luna P.T., D.P.T. - [...] in place draining clear pink urine I/O ([id number]): NG tube 200 cc Two hundred sixty-five [...] questions or concerns. Pager during business hours: [phone] Pager after hours: [phone] * Paula Hernandez M.D. - 08/15/2023 9:09 AM CDT PROGRESS NOTE: No events. AFVSS. Pain controlled. No flatus. No further emesis overnight. Abdomen more distended than yesterday but remained soft, tender to deep palpation only, no rebound. Twenty-four Nepalese Alcock three-way catheter remains off CBI, draining [...] above was discussed with Dr. Brock, urology design sales consultant on-call who is in agreement [...] Family to bring his home enzalutamide from [place] Irvin Franco Pharm.D., R.Ph. * Jakob De Paz M.D. - 08/14/2023 11:34 AM CDT PROGRESS NOTE: No events. AFVSS. Pain controlled. No flatus. Nauseous and had 2 episodes of emesis. Abdomen more distended than yesterday but remained soft, tender to deep palpation only, no rebound. Twenty-four Nepalese Alcock three-way catheter remains off CBI, draining [...] above was discussed with Dr. Brock, urology design sales consultant on-call who is in agreement [...] Patient discussed with Dr. Sylvester. Page CCM3 [id number] Carlos Alberot Henson M.D. PGY-1 CCM 3 * Ethel [...] who have asked we place a 24 Nepalese 3-way urinary catheter pending evaluation. We will [...] stent and hematuria who is transferred from [facility] ED with 3 days of hematuria [...] him to present to local hospital in [place]. OSH Course: His hemoglobin was in the [...] Insecurity: No Food Insecurity (02/16/2022) Received from [facility], [facility] Food Insecurity Worried About Running Out of Food in the Last Year: 1 Transportation Needs: No Transportation Needs (02/16/2022) Received from [facility], [facility] Transportation Needs Lack of Transportation (Medical): 1 Housing Stability: Low Risk (02/16/2022) Received from [facility], [facility] Housing Stability Unable to Pay for [...] Dr. Sylvester and Dr. Rodriguez. Page CCM3 [id number] Carlos Alberto Henson M.D. PGY-1 CCM 3 documented in this encounter Procedure Notes * Cerna, Joni J, M.D. - 08/22/2023 8:36 AM CDT PATIENT DISPOSITION Return to inpatient bed. POST-PROCEDURE DIAGNOSIS Need for central venous access PROCEDURE PERFORMED AND DESCRIPTION Placement of a right IJ vein tunneled SL 4-F PowerPICC - ready to use PROCEDURE DETAILS See Radiology Report SPECIMENS REMOVED None FINDINGS As expected PRIMARY PROCEDURALIST FAY Cerna MD [phone] ASSISTANTS none COMPLICATIONS None. DRAINS None. IMPLANTS [...] peripheral vein targets. Ultrasound used for assessment: Local [employer] Fit Provider contacted (include name): Uro Surg [...] STENT EXCHANGE; Surgeon: Boubacar Brock M.D.; Location: [facility] ROMB OR FAMILY HISTORY No [...] 14 -- AST U/L 25 -- Radiology: @[id number]@ Swallow Assessment: No data to display ASSESSMENT / PLAN #1 Hematuria ASSESSMENT Currently we are asked to visit with Mr. Vega for consideration of parenteral nutrition. Nutrition Needs: Height: 180 cm Admission Weight: 91.2 kg (08/13/2023) Current Weight: 90.2 kg BMI (Calculated): 27.8 kg/m?? Total Calorie Needs: 9251-5050 calories/day Method to Estimate Energy Needs: [place] ( ) Weight Used for Equation Calculations: [...] on electrolytes Please call NSS pager at [phone] at [facility] or [phone] at [facility] with any additional questions. * [...] values in this interval not displayed. Radiology: @[id number]@ Swallow Assessment: No data to display ASSESSMENT / PLAN #1 Hematuria ASSESSMENT Currently we are asked to visit with Mr. Vega for consideration of parenteral nutrition. Nutrition Needs: Height: 180 cm Admission Weight: 91.2 kg (08/13/2023) Current Weight: 90.2 kg BMI (Calculated): 27.8 kg/m?? Total Calorie Needs: 4238-1998 calories/day Method to Estimate Energy Needs: kcal/kg [...] on electrolytes Please call NSS pager at [phone] at [facility] or [phone] at [facility] with any additional questions. BILLING/CODING [...] stent along with other stents and apparently registered occupational therapist in the past I recommended indefinite dual [...] documented in the history of present illness. @critical access hospitalx@ OBJECTIVE Current Facility-Administered Medications: acetaminophen tablet [...] 20 mL/hr, intravenous, Continuous, Frieda Garner APRN, PRODUCTION WELDER, Last Rate: 20 mL/hr at 08/15/23 1459, [...] but he can discuss this with his registered occupational therapist at home. We need to balance transfusion [...] was admitted to [facility] in [place] on 08/13/2023 for Hematuria [R31.9]. Relevant Medical History: Kalen Vega is a 83 y.o. 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 Pain Assessment: Pain not reported during [...] 3-5 steps with a railing?: A Lot -[facility] Basic Mobility (V.2) Raw Score: 17 [facility] Basic Mobility (V.2) Standardized Score: 39.67 Interpretation: Based on scoring guidelines using the raw score value: Those going to home had an average score at or above 18 Those going to facility had an average score at or below 17 Clinicians answer the [facility] Inpatient Short Form based on observed [...] following coordination of care occurred with the olive knocker/Caregiver Present: SonFavio Patient was left in bedside [...] was admitted to [facility] in [place] on 08/13/2023 for Hematuria with cystotomy and [...] Min assist for mobility. Required assist for vib-re-dhxci for force generation and is generally standby [...] Ongoing PT Goal #2: Patient will perform uae-zf-tmomc transfer with modified independence and least restrictive [...] - 08/16/2023 10:01 AM CDT Occupational Therapy [facility] Inpatient Evaluation/Treatment SUBJECTIVE Patient's Name: Kalen Vega Referring/Attending Provider: Boubacar Brock M.D. Reason for Referral: Occupational Therapy Evaluation and Treatment PERTINENT MEDICAL / SURGICAL HISTORY: Kalen Vega has no past medical history on file. Kalen Vega has no past surgical history on file. History of Present Illness: Kalen Vega is a 83 y.o. male who was admitted to [facility] in [place] on 08/13/2023 for Hematuria [R31.9]. Relevant Medical [...] with RN, PT Family/Caregiver Present: Son and [id number]. Home Living and Equipment: Lives with: Spouse/Significant [...] walker, Single point cane Adaptive Equipment Owned: Brush Polisher, Long Handled Shoe Horn Other DME Owned: Regular flat bed Prior Level of Function and Mobility: Basic Activities of Daily Living: Independent Instrumental Activities of Daily Living: Required Assistance: Laundry son assists with laundry and cooking Functional Mobility: Independent Driving: Yes Occupational Role: Retired Leisure Interests: watch movies, plays [employer] train, meets friends for breakfast. Patient/Caregiver Goals: [...] Wears glasses all the time Outcome Measures: [facility] Inpatient Short Form: Putting on and [...] at or below 17 Clinicians answer the [facility] Inpatient Short Form based on observed [...] all are a great support. 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 Patient expressed understanding and was agreeable to [...] conversation with his family when social work lecturer entered the room. He was engaged in [...] locally at approximately 3:00 a.m. a 22 Nepalese three-way catheter was placed and CBI wasinitiated. [...] non-distended, non-peritonitic Extremities: No edema : 22 Nepalese three-way Tabares catheter draining a minimal amount [...] urinary retention Given his non draining 22 Nepalese three-way catheter the Urology techs and I subsequently exchanged this for a 24 Nepalese three-way Alcock in the usual sterile fashion. [...] to follow [place] [phone] with questions or concerns Sixto Cain M.D. [...] peripheral vein targets. Ultrasound used for assessment: [employer] Ven[employer]K Fit Provider contacted (include name): Uro Surg [...] CDT Patient Transfer Note Patient transferred to: [facility] Room: [facility] Accompanied by: [...] signs? YES * Sixto Teague R.R.T., L.R.T., POCKET GRINDER OPERATOR-ACCS - 08/14/2023 7:00 AM CDT Patient is [...] the last 24hours. 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 His existing 24 Nepalese three-way Tabares catheter was noted to be [...] additional tissue for additional coverage. A 24 Nepalese three-way catheter was placed with 15 cc in the balloon. This irrigated to light clear pink. A 15 Nepalese YARELI drain wasplaced into the pelvis exiting left lower quadrant. The fascia was closed with interrupted and hwkopm-sj-mmhrf 0 PDS. Fat was approximated using 3-0 [...] RN, CPN, CCDS, CCS, CRC Clinical Documentation Deputy Chief Magistrate Query created by: ELMER Barker, RN, CPN, [...] stent and hematuria who is transferred from [place] ED with 3 days of hematuria & recent history of rectal bleeding which has since resolved. In the outside ED, he received 1 unit PRBCs and crystalloid. Hemoglobin 8s. -H/P, 5-[address] Kanj gross hematuria in the setting of anticoagulation and antiplatelet therapy. - H/P, 5-[address] Sylvester H/P, 5-[address] Henson: -He last took Plavix and Xarelto yesterday. -Cont holding Eliquis and Plavix in acute setting Please contact me if you have questions. Thank you, ELMER Barker, RN, CPN, CCDS, CCS, CRC Clinical Documentation Deputy Chief Magistrate Query created by: ELMER Barker, RN, CPN, [...] he felt completely obstructed and presented to [place] ED. [place] Course Attempted Tabares insertion but bladder irrigation was unsuccessful on multiple attempts. Hung 1U pRBC's. Given some volume and transferred to [facility] ICU ICU Course Urology [...] CDT Office Visit Department of Urology in [address] [phone] Burke Strauss M.D. [facility] [place] [phone] Discharge Disposition: Home or Self Care Pending [...] 1 Units (08/26/2023 12:52 PM CDT) Corin Rnig M.D. BLOOD TRANSFUSION OR DERABLES * IR [...] Hernandez M.D. LAB BLOOD BANK TEST ORDERABLES [facility] [address] [place] [address], [facility] [address] [place] [address] * (ABNORMAL) CBC without Differential (08/26/2023 3:20 [...] CDT Corin Ring M.D. LAB BLOOD ADD-ON [facility] [address] [place], [place] [address] DTL Formerly named [facility] [address] [place] [address] * Magnesium (08/26/2023 3:20 AM CDT) Magnesium, S 2.1 1.7 - 2.3 mg/dL 08/26/2023 4:04 AM CDT DTL Blood (Blood, Venous) 08/26/2023 3:20 AM CDT 08/26/2023 3:50 AM CDT Boubacar Brock M.D. LAB BLOOD ADD-ON [facility] [address] [place] [address], [facility] DTL Formerly named [facility] [address] [place] [address] * (ABNORMAL) Renal Function Panel (08/26/2023 3:20 [...] CDT Boubacar Brock M.D. LAB BLOOD ADD-ON [facility] [address] [place] [address], [facility] [address] [place] [address] * Heparin Anti-Xa Assay (08/26/2023 3:20 AM CDT) Pathologist [facility] Heparin Anti-Xa, P 0.26 IU/mL 2023 3:58 [...] Hoyt M.D. LAB BLOOD NON ADD -ON [facility] [address] [place] [address], [facility] [address] [place] [address] * (ABNORMAL) CBC without Differential (08/25/2023 3:24 [...] CDT Corin Ring M.D. LAB BLOOD ADD-ON [facility] [address] [place] [address], [facility] [place] [address] [place] [address] * (ABNORMAL) Renal Function Panel (08/25/2023 3:24 AM CDT) Pathologist [facility] Potassium, S 4.1 3.6 - 5.2 mmol/L [...] LAB BLOOD ADD-ON Performing Organization Address City/[facility]/ZIP Co de Phone Number [facility] [address] [place] [address] * Magnesium (08/25/2023 3:24 AM CDT) Magnesium, S 2.2 1.7 - 2.3 mg/dL 08/25/2023 4:36 AM CDT DTL Blood (Blood, Venous) 08/25/2023 3:24 AM CDT 08/25/2023 4:19 AM CDT Boubacar Brock M.D. LAB BLOOD ADD-ON Performing Organization Address City/[facility]/ZIP Co de Phone Number [facility] [address] [place] [address], [place] [address] * Heparin Anti-Xa Assay (08/25/2023 3:24 AM [...] BLOOD NON ADD-ON Performing Organization Address City/[facility] Co de Phone Number [facility] [address] [place] [address], [facility] [address] [place] [address] * (ABNORMAL) CBC without Differential (08/24/2023 5:28 [...] M.D. LAB BLOOD ADD-ON Performing Organization Address City/State/[facility] Co de Phone Number [facility] [address] [place], [place] [phone] [place] [address] * Magnesium (08/24/2023 5:28 AM CDT) Magnesium, S 2.3 1.7 - 2.3 mg/dL 08/24/2023 6:19 AM CDT DTL Blood (Blood, Venous) 08/24/2023 5:28 AM CDT 08/24/2023 6:00 AM CDT Boubacar Brock M.D. LAB BLOOD ADD-ON Performing Organization Address City/[facility] Co de Phone Number [facility] [address] [place], [place] [address] [place] [address] * (ABNORMAL) Renal Function Panel (08/24/2023 5:28 [...] M.D. LAB BLOOD ADD-ON Performing Organization Address [facility]/ZIP Co de Phone Number [facility] [address] [place] [address], [facility] [address] [address] * Heparin Anti-Xa Assay (08/24/2023 5:28 AM [...] BLOOD NON ADD-ON Performing Organization Address City/[facility]/ZIP Co de Phone Number [facility] [address] [place] [address] * (ABNORMAL) Potassium (08/23/2023 9:58 PM CDT) Pathologist [facility] Potassium, S 3.5(L) 3.6 - 5.2 mmol/L 08/23/2023 10:45 PM CDT DT Blood (Blood, Venous) 08/23/2023 9:58 PM CDT 08/23/2023 10:30 PM CDT Boubacar Brock M.D. LAB BLOOD ADD-ON [facility] [address] [place] [address] * (ABNORMAL) Phosphorus Inorganic (08/23/2023 9:58 PM CDT) [facility] Phosphorus (Inorganic), S 2.1(L) 2.5 - 4.5 mg/dL 08/23/2023 10:45 PM CDT DT Blood (Blood, Venous) 08/23/2023 9:58 PM CDT 08/23/2023 10:30 PM CDT Paula Hernandez M.D. LAB BLOOD ADD-ON [facility] [address] [place] [address] * Heparin Anti-Xa Assay (08/23/2023 11:37 AM CDT) [facility] Heparin Anti-Xa, P 0.51 IU/mL 2023 12:42 PM CDT [facility] Comment: UFH therapeutic range: ?? 0.30-0.70 IU/mL [...] Boubacar Brock M.D. LAB BLOOD NON ADD-ON [facility] [address] [place] [address], [address] [address] * (ABNORMAL) CBC without Differential (08/23/2023 3:42 AM CDT) [facility] Hemoglobin 8.3(L) 13.2 - 16.6 g/dL [...] CDT Corin Ring M.D. LAB BLOOD ADD-ON [facility] [address] [place], [place] [phone] [place] [address] [address] [place] [address] * Triglycerides (08/23/2023 3:42 AM CDT) [facility] Triglycerides 106 mg/dL 08/23/2023 4:50 AM CDT DT Comment: ----REFERENCE VALUE---- Normal: <150 mg/dL Borderline High: 150-199 mg/dL High: 200-499 mg/dL Very High: > or =500 mg/dL Fasting (8 HR or more) Yes 08/23/2023 4:19 AM CDT DT Blood (Blood, Venous) 08/23/2023 3:42 AM CDT 08/23/2023 4:19 AM CDT Boubacar Brock M.D. LAB BLOOD ADD-ON Performing Organization Address City/[facility]/ZIP Co de Phone Number [facility] [address] [place], [place] [phone] [place] [address] 200 [place] [address] * Magnesium (08/23/2023 3:42 AM CDT) [facility] Magnesium, S 2.2 1.7 - 2.3 mg/dL 08/23/2023 4:50 AM CDT DT Blood (Blood, Venous) 08/23/2023 3:42 AM CDT 08/23/2023 4:19 AM CDT Boubacar Brock M.D. LAB BLOOD ADD-ON [facility] [address] [place] [address] * (ABNORMAL) Renal Function Panel (08/23/2023 3:42 AM CDT) [facility] Potassium, S 3.1(L) 3.6 - 5.2 [...] Boubacar Brock M.D. LAB BLOOD ADD-ON [facility] [address] [place] [address], [place] [facility] [address] [place] [address] * Heparin Anti-Xa Assay (08/23/2023 3:41 AM CDT) Pathologist [facility] Heparin Anti-Xa, P 0.51 IU/mL 2023 4:26 [...] BLOOD NON ADD-ON Performing Organization Address City/[facility]/ZIP Co de Phone Number [facility] [address] [place] [address], [facility] [address] [place] [address] * Glucose, POCT (08/22/2023 11:38 PM CDT) [facility] Glucose, POCT, B 117 70 - 140 mg/dL 08/23/2023 1:06 AM CDT PCLX Site Capillary 08/23/2023 1:06 AM CDT PCLX Last Intake NPO 08/23/2023 1:06 AM CDT PCLX Blood 08/22/2023 11:3 8 PM CDT 08/23/2023 1:06 AM CDT Unknown Provider LAB POCT ORDERABLES- MANUAL POC [facility] [address] [place] [address], [facility] PCLX [facility] POC [address] [place] [address] * Heparin Anti-Xa Assay (08/22/2023 10:14 PM [...] Boubacar Brock M.D. LAB BLOOD NON ADD-ON [facility] [address] [place] [address], [facility] [address] [place] [address] * CT Abdomen Pelvis without IV Contrast [...] Boubacar Brock M.D. LAB BLOOD NON ADD-ON [facility] [address] [place] [address], [facility] [address] [place] [address] * Creatinine, Body Fluid (08/22/2023 3:30 PM [...] transport rates. All other fluids refer to [email or web address] for further interpretive information. This test has been modified from the certified pediatric nurse practitioner's instructions. Its performance characteristics were determined by [facility] in a manner consistent with CLIA requirements. This test has not been cleared or approved by the U.S. Food and Drug Administration. Fluid Type, Creatinine Fluid, Abdomen 08/22/2023 3:52 PM CDT DTL Fluid (Abdomen) 08/22/2023 3 :30 PM CDT 08/22/2023 6:36 PM CDT Corin Ring M.D. LAB BODY FLUIDS AND STOOLS ORDERABLES [facility] [address] [place] [address], [place] DTL Formerly named [facility] [address] [place] [address] * Transfuse Red Blood Cells : (08/22/2023 [...] LAB BLOOD ADD-ON Performing Organization Address City/[facility] Co de Phone Number [facility] [address] [place], [place] [phone] [place] [address] STMA Formerly named [facility] [address] [place] [address] * Type and Screen (with Reflex Antibody ID) (08/22/2023 2:55 AM CDT) Pathologist [facility] ABORh O Pos Not applicable 08/22/2023 3:25 AM CDT STRM Antibody Screen Negative Negative 08/22/2023 3:38 AM CDT STRM Type & Screen Expiration 08/25/2023 23:59 08/22/2023 3:25 AM CDT STRM Testing Location [place] DEFAULT 08/22/2023 3:07 AM CDT STRM Blood (Blood, Venous) 08/22/2023 2:55 AM CDT 08/22/2023 3:07 AM CDT Latisha Whitehead M.D. LAB BLOOD BANK T EST ORDERABLES Performing Organization Address [facility] Co de Phone Number [facility] [address] [place] [address], [facility] STRM Formerly named [facility] [address] [place] [address] * (ABNORMAL) Comprehensive Metabolic Panel (08/22/2023 2:40 AM CDT) Pathologist [facility] Potassium, S 3.2(L) 3.6 - 5.2 mmol/L [...] Latisha Whitehead M.D. LAB BLOOD ADD-ON [address] [address] DTL [facility] [place] [address] [place] [address] * Heparin Anti-Xa Assay (08/22/2023 2:40 AM CDT) Pathologist [facility] Heparin Anti-Xa, P 0.47 IU/mL 2023 3:28 AM CDT [facility] Comment: UFH therapeutic range: ?? 0.30-0.70 IU/mL [...] Whitehead M.D. LAB BLOOD NON AD D-ON [facility] [address] [place] [address] * (ABNORMAL) APTT (Activated Partial Thromboplastin Time) (08/22/2023 2:40 AM CDT) [facility] Activated Partial Thrombopl Time, P 64(H) 25 - 37 sec 08/22/2023 3:12 AM CDT [facility] Blood (Blood, Venous) 08/22/2023 2:40 AM CDT 08/22/2023 3:01 AM CDT Latisha Whitehead M.D. LAB BLOOD ADD-ON [facility] [address] [place], [place] [phone] [place] [address] [address] [place] [address] * Triglycerides (08/21/2023 7:32 AM CDT) Triglycerides 98 mg/dL 08/21/2023 9:03 AM CDT DTL Comment: ----REFERENCE VALUE---- Normal: <150 mg/dL Borderline High: 150-199 mg/dL High: 200-499 mg/dL Very High: > or =500 mg/dL Fasting (8 HR or more) Unknown 08/21/2023 8:38 AM CDT DTL Blood (Blood, Venous) 08/21/2023 7:32 AM CDT 08/21/2023 8:38 AM CDT Lizette Harvey M.D. LAB BLOOD ADD-O N [facility] [address] [place] [address] * Phosphorus Inorganic (08/21/2023 7:32 AM CDT) Pathologist [facility] Phosphorus (Inorganic), S 2.6 2.5 - 4.5 mg/dL 08/21/2023 9:03 AM CDT DTL Blood (Blood, Venous) 08/21/2023 7:32 AM CDT 08/21/2023 8:38 AM CDT Lizette Harvey M.D. LAB BLOOD ADD-O N [facility] [address] [place] [address] * Magnesium (08/21/2023 7:32 AM CDT) Magnesium, S 2.3 1.7 - 2.3 mg/dL 08/21/2023 9:03 AM CDT DTL Blood (Blood, Venous) 08/21/2023 7:32 AM CDT 08/21/2023 8:38 AM CDT Lizette Harvey M.D. LAB BLOOD ADD-O N [facility] [address] [place] [address], [facility] DTL Formerly named [facility] [address] [place] [address] * (ABNORMAL) Basic Metabolic Panel (08/21/2023 7:32 [...] LAB BLOOD ADD-O N Performing Organization Address [facility] Co de Phone Number [facility] [address] [place], [place] [phone] [place] [address] [address] [place] [address] * (ABNORMAL) CBC without Differential (08/21/2023 7:32 [...] BLOOD ADD-O N Performing Organization Address City/[facility]/ZIP Co de Phone Number [facility] [address] [place] [address], [facility] [address] [place] [address] * Heparin Anti-Xa Assay (08/21/2023 7:32 AM CDT) Pathologist [facility] [place] Heparin Anti-Xa, P 0.49 IU/mL 2023 8:31 [...] BLOOD NON ADD-ON Performing Organization Address City/[facility]/ZIP Co de Phone Number [facility] [address] [place] [address] * (ABNORMAL) APTT (Activated Partial Thromboplastin Time) (08/21/2023 7:32 AM CDT) Activated Partial Thrombopl Time, P 49(H) 25 - 37 sec 08/21/2023 8:31 AM CDT DT Blood (Blood, Venous) 08/21/2023 7:32 AM CDT 08/21/2023 8:06 AM CDT Boubacar Brock M.D. LAB BLOOD ADD-ON [facility] [address] [place] [address] * Place peripherally inserted central catheter (PICC) [...] the atrophic right kidney. Lizette Harvey M.D. [facility] [place] PROCEDUR ES * (ABNORMAL) Basic Metabolic Panel (08/20/2023 3:19 AM CDT) [facility] Potassium, S 3.7 3.6 - 5.2 [...] M.D. LAB BLOOD ADD-ON Performing Organization Address [facility] Co de Phone Number [facility] [address] [place] [address], [facility] [address] [place] [address] * (ABNORMAL) CBC without Differential (08/20/2023 3:19 [...] BLOOD ADD-ON [facility] [address] [place], [place] [phone] [place] [address] [address] [place] [address] * (ABNORMAL) APTT (Activated Partial Thromboplastin Time) (08/20/2023 3:19 AM CDT) Pathologist [facility] Activated Partial Thrombopl Time, P 52(H) 25 - 37 sec 08/20/2023 4:33 AM CDT DTL Blood (Blood, Venous) 08/20/2023 3:19 AM CDT 08/20/2023 4:10 AM CDT Boubacar Brock M.D. LAB BLOOD ADD-ON [facility] [address] [place], [place] [id number] [place] [address] [address] [place] [address] * (ABNORMAL) APTT (Activated Partial Thromboplastin Time) (08/19/2023 10:57 AM CDT) [facility] Activated Partial Thrombopl Time, P 54(H) 25 - 37 sec 08/19/2023 11:44 AM CDT DTL Blood (Blood, Venous) 08/19/2023 10:57 AM CDT 08/19/2023 11:26 AM CDT Boubacar Brock M.D. LAB BLOOD ADD-ON [facility] [address] [place], [place] [phone] [place] [address] [address] [place] [address] * (ABNORMAL) APTT (Activated Partial Thromboplastin Time) (08/19/2023 4:51 AM CDT) Pathologist [facility] Activated Partial Thrombopl Time, P 59(H) 25 - 37 sec 08/19/2023 5:53 AM CDT DTL Blood (Blood, Venous) 08/19/2023 4:51 AM CDT 08/19/2023 5:36 AM CDT Boubacar Brock M.D. LAB BLOOD ADD-ON Performing Organization Address City/[facility]/ZIP Co de Phone Number [facility] [address] [place], [place] [phone] [place] [address] [address] [place] [address] * (ABNORMAL) APTT (Activated Partial Thromboplastin Time) (08/18/2023 10:03 PM CDT) Activated Partial Thrombopl Time, P 63(H) 25 - 37 sec 08/18/2023 10:41 PM CDT DTL Blood (Blood, Venous) 08/18/2023 10:03 PM CDT 08/18/2023 10:19 PM CDT Boubacar Brock M.D. LAB BLOOD ADD-ON Performing Organization Address City/[facility] Co de Phone Number [facility] [address] [place], [place] [phone] [place] [address] [address] [place] [address] * (ABNORMAL) APTT (Activated Partial Thromboplastin Time) (08/18/2023 2:50 PM CDT) Pathologist [facility] Activated Partial Thrombopl Time, P 64(H) 25 - 37 sec 08/18/2023 3:25 PM CDT DTL Blood (Blood, Venous) 08/18/2023 2:50 PM CDT 08/18/2023 3:07 PM CDT Boubacar Brock M.D. LAB BLOOD ADD-ON [facility] [address] [place], [place] [phone] [place] [address] [address] [place] [address] * (ABNORMAL) APTT (Activated Partial Thromboplastin Time) (08/18/2023 6:42 AM CDT) Pathologist [facility] Activated Partial Thrombopl Time, P 61(H) 25 - 37 sec 08/18/2023 7:28 AM CDT DT Blood (Blood, Venous) 08/18/2023 6:42 AM CDT 08/18/2023 7:04 AM CDT Boubacar Brock M.D. LAB BLOOD ADD-ON [facility] [address] [place] [address], [facility] [address] [place] [address] * (ABNORMAL) APTT (Activated Partial Thromboplastin Time) (08/17/2023 11:04 PM CDT) [facility] Activated Partial Thrombopl Time, P 40(H) 25 - 37 sec 08/17/2023 11:46 PM CDT DT Blood (Blood, Venous) 08/17/2023 11:04 PM CDT 08/17/2023 11:31 PM CDT Boubacar Brock M.D. LAB BLOOD ADD-ON [facility] [address] [place] [address], [facility] [address] [place] [address] * US Lower Extremity Veins Bilateral (08/17/2023 [...] and management can be found on the [employer] site. Link [email or web address] Findings discussed with ??Tayler Greenwood, ?? ([id number]) on 08/17/2023 7:11 PM. Procedure Note Jj [...] management can be found on theAskMayoExpert site. [email or web address] [email or web address]/topic/clinical-[email or web address]/[email or web address]/[email or web address] -[email or web address] 1725 Findings discussed with Tayler Greenwood MD ([id number]) on 08/17/2023 7:11 PM. IMPRESSION: 1. 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 2. No acute left-sided DVT. Corin Ring M.D. IMG US PROCEDURES * APTT (Activated Partial Thromboplastin Time) (08/17/2023 4:56 PM CDT) Activated Partial Thrombopl Time, P 29 25 - 37 sec 08/17/2023 5:10 PM CDT [facility] Blood (Blood, Venous) 08/17/2023 4:56 PM CDT 08/17/2023 5:00 PM CDT Paula Hernandez M.D. LAB BLOOD ADD-ON [facility] [address] [place] [address], [facility] [address] [place] [address] * ECG 12 Lead (08/16/2023 9:43 PM CDT) Pathologist [facility] Ventricular Rate ECG/Min 134 BPM MUSE AL Interval 136 ms MUSE QRSD Interval 76 ms MUSE QT Interval 298 ms MUSE QTC Interval 445 ms MUSE P Jefferson 29 degrees MUSE R Jefferson -6 degrees MUSE T Wave Jefferson 21 degrees MUSE 08/16/2023 9:43 PM CDT [...] Differential (08/16/2023 9:40 PM CDT) Pathologist [facility] Hemoglobin 8.8(L) 13.2 - 16.6 g/dL 08/16/2023 [...] CDT Geneva Azar M.D. LAB BLOOD ADD-ON [facility] [address] [place] [address], [facility] [address] [place] [address] * (ABNORMAL) Basic Metabolic Panel (08/16/2023 9:40 PM CDT) Pathologist [facility] Potassium, S 3.9 3.6 - 5.2 mmol/L [...] CDT Geneva Azar M.D. LAB BLOOD ADD-ON [facility] [address] [place] [address], [facility] DTL Formerly named [facility] [address] [place] [address] * Transfuse Red Blood Cells : (08/16/2023 [...] M.D. LAB BLOOD ADD-ON Performing Organization Address [facility] Co de Phone Number [facility] [address] [place], [place] [phone] [place] [address] [facility] [address] [place] [address] * (ABNORMAL) CBC without Differential (08/16/2023 3:10 [...] LAB BLOOD ADD-ON Performing Organization Address City/[facility]/ZIP Co de Phone Number [facility] [address] [place] [address], [facility] DTL Formerly named [facility] [address] [place] [address] * (ABNORMAL) CBC with Differential, Blood (08/15/2023 [...] Alberto Henson M.D. LAB BLOOD ADD-ON [facility] [address] [place] [address], [facility] DTL Formerly named [facility] [address] [place] [address] [facility] [address] [place] [address] * DX Abdomen 1 View (08/15/2023 1:19 [...] deg C 08/15/2023 12:04 PM CDT [facility] Blood 08/15/2023 11:5 6 AM CDT 08/15/2023 12:03 PM CDT Rae Gonzalez RETAIL FIELD SUPERVISOR, PRODUCTION WELDER, DNAP LAB BLOO D NON ADD-ON [facility] [address] [place] [address], [place] [facility] [address] [place] [address] * Lactate, B - Intra-op (08/15/2023 11:56 AM CDT) Lactate, B 1.1 0.5 - 2.2 mmol/L 08/15/2023 12:06 PM CDT [facility] Blood (Blood, Venous) 08/15/2023 11:56 AM CDT 08/15/2023 12:03 PM CDT Hayde Song M.D. LAB BLOOD NON ADD-O N [facility] [address] [place], [place] [phone] [place] [address] [address] [place] [address] * (ABNORMAL) Glucose, Whole Blood (08/15/2023 11:56 AM CDT) Glucose 144(H) 70 - 140 mg/dL 08/15/2023 12:06 PM CDT [facility] Blood (Blood, Arterial Line) 08/15/2023 11:56 AM CDT 08/15/2023 12:03 PM CDT Hayde Song M.D. LAB BLOOD ADD-ON Performing Organization Address City/[facility]/ZIP Co de Phone Number [facility] [address] [place], [place] [phone] [place] [address] [address] [place] [address] * Potassium, Blood (08/15/2023 11:56 AM CDT) Potassium, B 4.3 3.6 - 5.2 mmol/L 08/15/2023 12:07 PM CDT [facility] Blood (Blood, Arterial Line) 08/15/2023 11:56 AM CDT 08/15/2023 12:03 PM CDT Hayde Song M.D. LAB BLOOD NON ADD-O N [facility] [address] [place], [place] [address] [address] [place] [address] * Sodium, B (08/15/2023 11:56 AM CDT) Sodium, B 135 135 - 145 mmol/L 08/15/2023 12:06 PM CDT [facility] Blood (Blood, Arterial Line) 08/15/2023 11:56 AM CDT 08/15/2023 12:03 PM CDT Hayde Song M.D. LAB BLOOD NON ADD-O N Performing Organization Address City/[facility]/ZIP Co de Phone Number [facility] [address] [place] [address] * (ABNORMAL) Calcium, Ionized (08/15/2023 11:56 AM CDT) Calcium, Ionized, B 4.53(L) 4.65 - 5.30 mg/dL 08/15/2023 12:07 PM CDT [facility] Blood (Blood, Arterial Line) 08/15/2023 11:56 AM CDT 08/15/2023 12:03 PM CDT Hayde Song M.D. LAB BLOOD NON ADD-O N Performing Organization Address City/[facility] Co de Phone Number [facility] [address] [place] [address] * (ABNORMAL) Blood Gas with Coox, Arterial [...] Song M.D. LAB BLOOD NON ADD-O N [facility] [address] [place] [address], [facility] STMA Formerly named [facility] [address] [place] [address] * [place] Fluoro Less Than 1 Hour [...] 08/15/2023 10:28 AM CDT Rae Gonzalez APRN, PRODUCTION WELDER, DNAP LAB BLOO D NON ADD-ON [facility] [address] [place] [address] * Lactate, B - Intra-op (08/15/2023 10:28 AM CDT) Lactate, B 1.1 0.5 - 2.2 mmol/L 08/15/2023 10:30 AM CDT [facility] Blood (Blood, Venous) 08/15/2023 10:28 AM CDT 08/15/2023 10:28 AM CDT Hayde Song M.D. LAB BLOOD NON ADD-O N [facility] [address] [place] [address] * Glucose, Whole Blood (08/15/2023 10:28 AM CDT) Pathologist [facility] Glucose 134 70 - 140 mg/dL 08/15/2023 10:30 AM CDT [facility] Blood (Blood, Arterial Line) 08/15/2023 10:28 AM CDT 08/15/2023 10:28 AM CDT Hayde Song M.D. LAB BLOOD ADD-ON [facility] [address] [place] [address] * Potassium, Blood (08/15/2023 10:28 AM CDT) Potassium, B 4.1 3.6 - 5.2 mmol/L 08/15/2023 10:31 AM CDT [facility] Blood (Blood, Arterial Line) 08/15/2023 10:28 AM CDT 08/15/2023 10:28 AM CDT Narrative Authorizing Provider Result Abdifatah Song M.D. LAB BLOOD NON ADD-O N [facility] [address] [place] [address] * Sodium, B (08/15/2023 10:28 AM CDT) Sodium, B 135 135 - 145 mmol/L 08/15/2023 10:30 AM CDT [facility] Blood (Blood, Arterial Line) 08/15/2023 10:28 AM CDT 08/15/2023 10:28 AM CDT Hadye Song M.D. LAB BLOOD NON ADD-O N Performing Organization Address City/[facility]/ZIP Co de Phone Number [facility] [address] [place] [address] * (ABNORMAL) Calcium, Ionized (08/15/2023 10:28 AM CDT) Calcium, Ionized, B 4.25(L) 4.65 - 5.30 mg/dL 08/15/2023 10:31 AM CDT [facility] Blood (Blood, Arterial Line) 08/15/2023 10:28 AM CDT 08/15/2023 10:28 AM CDT Narrative Authorizing Provider Result Abdifatah Song M.D. LAB BLOOD NON ADD-O N [facility] [address] [place] [address] * (ABNORMAL) Blood Gas with Coox, Arterial [...] M.D. LAB BLOOD NON ADD-O N [facility] [address] [place] [address], [facility] STMA Formerly named [facility] [address] [place] [address] * Bacteria / Yomaira Culture, Blood #2 (08/15/2023 3:33 AM CDT) Bacteria/Leyla da Culture, Blood No growth after 5 days of incubation. 08/20/2023 6:02 AM CDT DTL Blood (Blood, Peripheral Draw) 08/15/2023 3:33 AM CDT 08/15/2023 5:58 AM CDT Comment:Specimen Source Site : Blood Narrative [facility] - 08/20/2023 6:02 AM CDT Received Bactec aerobic and Bactec anaerobic bottles Carlos Alberto Henson M.D. LAB MICROBIOLOGY - G ENERAL ORDERABLES [facility] [address] [place] [address], [facility] DTL Formerly named [facility] [address] [place] [address] * (ABNORMAL) Basic Metabolic Panel (08/15/2023 3:31 AM CDT) [facility] Potassium, S 4.0 3.6 - 5.2 [...] LAB BLOOD ADD-ON Performing Organization Address City/[facility]/ZIP Co de Phone Number [facility] [address] [place] [address] * Bacteria / Yomaira Culture, Blood #1 (08/15/2023 3:31 AM CDT) [facility] Bacteria/Leyla da Culture, Blood No growth after 5 days of incubation. 08/20/2023 6:02 AM CDT DTL Blood (Blood, Peripheral Draw) 08/15/2023 3:31 AM CDT 08/15/2023 5:59 AM CDT Comment:Specimen Source Site : Blood Carlos Alberto Henson M.D. LAB MICROBIOLOGY - G ENERAL ORDERABLES Performing Organization Address [facility] Co de Phone Number [facility] [address] [place] [address] * (ABNORMAL) CBC with Differential, Blood (08/15/2023 3:30 AM CDT) [facility] Hemoglobin 9.5(L) 13.2 - 16.6 g/dL [...] Carlos Alberto Henson M.D. LAB BLOOD ADD-ON [facility] [address] [place] [address], [facility] DTL Formerly named [facility] [address] [place] [address] [address] * (ABNORMAL) CBC with Differential, Blood (08/14/2023 8:08 PM CDT) [facility] Hemoglobin 9.8(L) 13.2 - 16.6 g/dL [...] Carlos Alberto Henson M.D. LAB BLOOD ADD-ON [facility] [address] [place] [address], [facility] STMA Formerly named [facility] [address] [place] [address] [facility] [address] [place] [address] * Transfuse Red Blood Cells : , [...] Carlos Alberto Henson M.D. LAB BLOOD ADD-ON [facility] [address] [place] [address], [facility] STMA Formerly named [facility] [address] [place] [address] [facility] [address] [place] [address] * (ABNORMAL) Basic Metabolic Panel (08/14/2023 3:18 AM CDT) [facility] Potassium, S 5.4(H) 3.6 - 5.2 [...] Carlos Alberto Henson M.D. LAB BLOOD ADD-ON [facility] [address] [place] [address], [facility] [address] [place] [address] * Type and Screen (with Reflex Antibody [...] Henson M.D. LAB BLOOD BANK TEST ORDERABLES [facility] [address] [place] [address], [facility] [address] [place] [address] * (ABNORMAL) Bacteria / Yomaira Culture, Blood #1 (08/13/2023 7:35 PM CDT) [facility] Bacteria/Cand jessica Culture, Blood ESCHERICHIA COLI Growth after 11 Hours (A) 08/16/2023 11:17 AM CDT DT Comment: 3 of 3 Bottles, Susceptibilities performed on another specimen [id number] Blood (Blood, Peripheral Draw) 08/13/2023 7:35 PM CDT 08/13/2023 8:15 PM CDT Comment:Specimen Source Site : Blood Carlos Alberto Henson M.D. LAB MICROBIOLOGY - G ENERAL ORDERABLES [facility] [address] [place] [address], [facility] [address] [place] [address] * ECG 12 Lead (08/13/2023 7:02 PM CDT) Ventricular Rate ECG/Min 128 BPM MUSE AL Interval 138 ms MUSE QRSD Interval 64 ms MUSE QT Interval 304 ms MUSE QTC Interval 443 ms MUSE P Jefferson 45 degrees MUSE R Jefferson 34 degrees MUSE T Wave Jefferson 46 degrees MUSE 08/13/2023 7:02 PM CDT [...] Culture, Blood #2 (08/13/2023 5:27 PM CDT) Pathologist [facility] Bacteria/Cand jessica Culture, Blood ESCHERICHIA COLI Growth after 11 Hours (A) 08/16/2023 11:17 AM CDT DTL Comment: 2 of 2 Bottles, Critical Result. Blood (Blood, Peripheral Draw) 08/13/2023 5:27 PM CDT 08/13/2023 5:44 PM CDT Comment:Specimen Source Site : Blood Narrative [facility] - 08/16/2023 11:17 AM CDT Received [...] Alberto Henson M.D. LAB MICROBIOLOGY - [facility] ORDERABLES [facility] [address] [facility]TA[facility] [address] [place] [address] * Magnesium (08/13/2023 5:27 PM CDT) [facility] Signature Magnesium, S 1.9 1.7 - 2.3 mg/dL 08/13/2023 6:12 PM CDT DTL Blood (Blood, Venous) 08/13/2023 5:27 PM CDT 08/13/2023 5:58 PM CDT Carlos Alberto Henson M.D. LAB BLOOD ADD-ON [facility] [address] [place] [address], [facility] [address] [place] [address] * (ABNORMAL) Hepatic Function Panel (08/13/2023 5:27 [...] Carlos Alberto Henson M.D. LAB BLOOD ADD-ON [facility] [address] [place] [address], [facility] [address] [place] [address] * (ABNORMAL) Basic Metabolic Panel (08/13/2023 5:27 [...] Carlos Alberto Henson M.D. LAB BLOOD ADD-ON [facility] [address] [place] [address], [facility] [address] [place] [address] * Prothrombin Time (PT) (08/13/2023 5:27 PM [...] Carlos Alberto Henson M.D. LAB BLOOD ADD-ON [facility] [address] [place] [address], [facility] STMA Formerly named [facility] [address] [place] [address] * (ABNORMAL) CBC with Differential, Blood (08/13/2023 [...] Carlos Alberto Henson M.D. LAB BLOOD ADD-ON [facility] [address] [place] [address], [facility] STMA Formerly named [facility] [address] [place] [address] DHPM Formerly named [facility] [address] [place] [address] * (ABNORMAL) Dipstick, Urine (08/13/2023 5:07 PM [...] LAB URINE ORDERABLES Performing Organization Address City/[facility]/ZIP Co de Phone Number [facility] [address] [place] [address], [facility] DTL Formerly named [facility] [address] [place] [address] * Osmolality, Urine (08/13/2023 5:07 PM CDT) Osmolality, U 351 150 - 1150 mOsm/kg 08/13/2023 7:46 PM CDT DTL Urine 08/13/2023 5:07 PM CDT 08/13/2023 5:45 PM CDT Carlos Alberto Henson M.D. LAB URINE ORDERABLES Performing Organization Address [facility] Co de Phone Number [facility] [address] [place] [address], [facility] [address] [place] [address] * (ABNORMAL) Microscopic Manual (08/13/2023 5:07 PM [...] LAB URINE ORDERABLES Performing Organization Address City/[facility] Co de Phone Number [facility] [address] [place] [address], [facility] [address] [place] [address] * pH, Random, Urine (08/13/2023 5:07 PM CDT) pH, Random, U 7.0 4.5 - 8.0 08/13/2023 7:46 PM CDT DTL Urine 08/13/2023 5:07 PM CDT 08/13/2023 5:45 PM CDT Carlos Alberto Henson M.D. LAB URINE ORDERABLES [facility] [address] [place] [address], [place] [facility] [address] [place] [address] * (ABNORMAL) Bacterial Culture, Aerobic + Susceptibility, [...] Alberto Henson M.D. LAB MICROBIOLOGY - [facility] ORDERABLES [address] [address], [facility] DTL [address] [address] * (ABNORMAL) Urinalysis, with Microscopic: Urine, Midstream [...] CDT DTL Predicted 24 [place] [id number](H) <229 mg/24 h 08/13/2023 8:50 PM CDT DTL Predicted Range [id number] mg/24 h 08/13/2023 8:50 PM CDT DTL Comment Micro done on <2.5 mL 08/13/2023 7:55 PM CDT DTL Urine (Urine, Midstream) 08/13/2023 5:07 PM CDT 08/13/2023 5:44 PM CDT Carlos Alberto Henson M.D. LAB URINE ORDERABLES [facility] [address] [place] [address], [place] DTL Formerly named [facility] [address] [place] [address] * Interpretation of Outside CT Abdomen and [...] may use home supply. 08/17/23: Id'ed by [facility] Rx# [id number], filled 07/22/23. HAZARDOUS - Handle with care. Swallow whole. Do NOT crush, chew or open capsule. Given 08/26/2023 9:12 AM CDT 120 mg Given 08/25/2023 9:08 AM CDT 120 mg Given 08/24/2023 9:12 AM CDT 120 mg Lactated Ringer's 1.5 mL/kg/hr ? 75 kg [place] weight (112.5 mL/hr, rounded to 113 mL/hr), intravenous, Continuous, Starting on Tue08/22/23 at 1030, Conditional Phase Pre-Gastrografin Administration. (Rate = 1.5 mL/kg/hr ideal body weight) Lactated Ringer's 0.75 mL/kg/hr ? 75 kg [place] weight (56.25 mL/hr, rounded to 56.3 mL/hr), [...] 0012 (Not Given - Provider: Brittni Howe RNarendra - Reason: Patient/family refused)0615 (Given - Provider: Brittni Howe R.N.)1242 (Given - Provider: Tayler Forrest R.N.)1831 (Given - Provider: Mary Rosado RNarendra) 0019 (Not Given - Provider: Fatuma See R.N. - Reason: Patient/family refused)0639 (Given - Provider: Fatuma See R.N.)1136 (Given - Provider: Tayler Forrest RJonahNJonah)1750 (Not Given - Provider: Antonia Salazar R.N. - Reason: Patient/family refused)2349 (Not Given - Provider: Edith Simental R.N. - Reason: Patient/family refused) 0624 (Given - Provider: dEith Simental R.N.)1244 (Not Given - Provider: Lupe [...] Howe RNarendra)1521 (Given - Provider: Mary Rosado RNarendra) 0640 [...] use home supply. 08/17/23: Id'ed by [facility] Rx# [id number], filled 07/22/23. HAZARDOUS - Handle with care. Swallow whole. Do NOT crush, chew or open capsule. 09 (Given - Provider: Tayler Forrest R.N. - Comment: Pat Murray, -2nd RN) 09 (Given - Provider: Tayelr Forrest R.N. - Comment: Pt 's own med from home) 911 (Given - Provider: Lupe Valdez R.N.) fat emulsion [id number] & fish oil infusion 50 g (SMOFlipid) [...] antonia MCCULLOUGH) 0407 (Rate/Dose Change - Provider: Mayur ArzolaNJonah)0729 (Handoff - Provider: Lupe Valdez R.N. - Comment: Verified with JAMEL Sharma)1153 (Stopped - Provider: Lupe Valdez R.N.) Lactated Ringer's 1.5 mL/kg/hr ? 75 kg [place] weight (112.5 mL/hr, rounded to 113 mL/hr), intravenous, Continuous, Starting on Tue08/22/23 at 1030, Conditional Phase Pre-Gastrografin Administration. (Rate = 1.5 mL/kg/hr ideal body weight) Lactated Ringer's 0.75 mL/kg/hr ? 75 kg [place] weight (56.25 mL/hr, rounded to 56.3 mL/hr), [...] 1547 documented in this encounter Care Teams Anesthesiology Teacher Relationship Specialty Start Date End Date Elsewhere, Pcp PCP - General Internal Medicine 08/13/23 documented as of this encounter
--- OUTSIDE RECORDS SUMMARY | 2023-11-04 12:34 | XMS_ITS | Encounter Summary ---
Author Organization [facility] Address [address] [place] [address] Care Team Providers Care Patient Registration Rep Name Role Phone Elsewhere, Pcp Primary Care Provider Unavailabl e Encounter Details Date Type Department Care Team (Late st Contact Info) Description 08/15/2023 8:30 AM CDT Anesthesia Event RST ROMB MAIN OR [address] [place] [address] Hayde Song M.D. [address] [place] [address] Anesthesia Record Procedure Summary Procedure Name Responsible [...] R.N. 08/15/23 0909 by Rae Gonzalez APRN, FIRST BREAKER FEEDER, DNAP Peripheral IV Placement Date: 08/02; Existing [...] Removal Time: 1253 08/15/23 0840 by Rae Gonzlaez APRN, CRNA, DNAJay 08/15/23 1253 by Rae [...] 1304 by Jacqui Mehta RJonahNJonah Closed/Suction Drain 05/06/24; 1215; Med ial; LLQ; Bulb; 15 Fr.; No longer in place 08/15/23 1215 by Janina Coronado RJonahN. 08/26/23 0000 by Lupe Valdez R.N. NG/OG Tube 08/15/23; 1234; Nasogastric; Right; 08/17/23; 1430 08/15/23 1234 by Rae Gonzalez APRN, GAVIN, DNAP 08/17/23 1430 by Jr Samuel RNarendra documented in this encounter Social History Tobacco Use Types Packs/Day Years Used Date Smoking Tobacco: Never Smokeless Tobacco: Never [facility] Utilities Answer Date Recorded In the past 12 months has e [employer], gas, oil, or water company threatened to [...] [facility] place to live 08/13/2023 Sex and Gender Information Value Date Recorded Sex Assigned at Not on file Gender Identity Not on file Sexual Orientation Not on file documented as of this encounter OR Notes * Anesthesia Postprocedure Evaluation - Nereida Liang M.D. 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 Location: [place] [address] / [facility] in [place], [place] Providers: Boubacar Brock M.D. Pertinent components [...] patient / legal guardian, or through an express manager; patient evaluated and approved for anesthesia / [...] CDT Office Visit Department of Urology in [place], [place] [address] [place] [address] Burke Strauss M.D. [address] [place] [phone] Discharge Disposition: Home or Self Care documented [...] 08/15/2023 9:51 AM CDT Rae Gonzalez APRN FIRST BREAKER FEEDER, DNAP ? 08/15/2023 ??9:52 AM Invasive Catheter [...] ETT location: oral VL device: glide scope [place] scope blade size: 4 Tube size: 7.5 [...] mg documented in this encounter Care Teams Patient Registration Rep Relationship Specialty Start Date End Date Elsewhere, Pcp PCP - General Internal Medicine 08/13/23 documented as of this encounter
--- OUTSIDE RECORDS SUMMARY | 2023-11-04 12:35 | XMS_ITS | Encounter Summary ---
Author Organization [facility] Address [address] [place] [address] Care Team Providers Care Photographic Editor Name Role Phone Elsewhere, Pcp Primary [...] [facility] 08/13/2023 Sex and Gender Information Value Date Recorded Sex Assigned at Not on file Gender Identity Not on file Sexual Orientation Not on file documented as of this encounter Plan of Treatment Upcoming Encounters Date Type Department Care Team (Late st Contact Info) Description 11/09/2023 11:00 AM CDT Office Visit Department of Urology in [place], [place] [address] [place] [address] Burke Strauss M.D. 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
--- OUTSIDE RECORDS SUMMARY | 2023-11-04 12:35 | XMS_ITS | Data Portability ---
Author Organization [facility], [facility] Address [address] [place] [address] Care Team Providers Care Pigment Making Supervisor Name Role Phone MASOUD SAUER Primary Care Provider [phone] Assessment No assessment recorded. Plan of Treatment Reminders Order Date Submit Date Provider Last Modified By Organization Details Last Modified Time Details Appointments None recorded . Lab urinalys is, dipstick 2023 024 [email or web address] [facility], [address] [place], [address], 4 15:08:54 culture, urine 2023 024 [facility], [address], [place], [address], 4 10:11:11 Referral None recorded . Procedures None recorded . Surgeries cystosco py with ureteral stent exchange (SURG) 2021 022 [email or web address] Not available 16:50:47 cystosco py with ureteral stent exchange (SURG) 2021 022 [email or web address] Not available 15:46:30 Imaging None recorded . Medication Orders Myrbetri q 50 mg tablet,e xtended release 2021 022 [id number], [address] [place], [place], [phone], 2 17:50:02 Bactrim DS 800 mg-160 mg tablet 2023 024 [email or web address] [facility][id number], [address] [facility], [place], [place], [phone], 16:19:28 Patient TargetsNo targets recorded. Patient InstructionsNo instructions recorded. Reason for Referral None Reported. Results Created Date Observation Date Name Description Value Unit Range Abnormal Flag LastModifiedBy Organization Detail LastModifiedTime 06/23/1906/23/2023 URINE CULTU RE final report MICROB IOLOGY RESULT S Not Available [facility] [address], [place], [address], 06/25/2023 10:11:11 06/23/19 24 06/23/2023 urina lysis , dipst ick Color-Status Red Not Available [facility] [address], , [address], 06/23/2023 15:08:10 06/23/19 24 06/23/2023 urina lysis , dipst ick pH-Status 7.5 Not Available [facility] [address], , [address], 06/23/2023 15:08:10 06/23/19 24 06/23/2023 urina lysis , dipst ick Protein-Stat us >=9.0 Not Available [facility] [address], , [address], 06/23/2023 15:08:10 06/23/19 24 06/23/2023 urina lysis , dipst ick Nitrates-Sta tus negati ve Not Available [facility] [address], , [address], 06/23/2023 15:08:10 06/23/19 24 06/23/2023 urina lysis , dipst ick Blood-Status Large Not Available [facility] [address], , [address], 06/23/2023 15:08:10 06/23/19 24 06/23/2023 urina lysis , dipst ick Leuko-Status Negati ve Not Available [facility] [address], , [address], 06/23/2023 15:08:10 06/23/19 24 06/23/2023 urina lysis , dipst ick Specimen Type Voided Not Available [facility] [address], , [address], 06/23/2023 15:08:10 07/04/19 24 07/01/2023 CT, abdom en + pelvi s, w/o contr ast No observ ation [facility] ed. [email or web address] [address] [facility], [place], [address], 09/01/2023 14:40:29 07/18/19 24 07/18/2023 XR, kidne y + urete r + bladd er No observ ation record ed. [email or web address] [facility] [address], , [address], 07/22/2023 15:56:19 Result Notes None recorded. Procedures Surgical History Date Name Laterality Status Provider Name and Address Organization Details Recorded Time Bladder Scan completed Rabia matthews, [facility] 06/23/2023 15:08:00 Cystoscopy completed Nicola Ware MD [address] [place] [address],[address], [place], [address], [facility] 12/30/2021 17:11:17 Colonoscopy completed Nicola Ware MD [address] [place] [address],[address], [place], [address], [facility] 12/30/2021 17:11:22 Imaging Results Imaging Date Name Status LastModified by [facility] Details LastModified Time 07/01/2023 CT, abdomen + pelvis, w/o contrast completed [facility] [address], [place], [address], 09/01/2023 14:40:29 07/18/2023 XR, kidney + ureter + bladder completed [facility] [address], , [address], 07/22/2023 15:56:19 Procedure Notes None recorded. Medical [...] COLONOSCO PY PREP INSTRUCTI ONS RECEIVED FROM [facility] active Not Available Not Available No t Available furosemide 20 mg tablet TAKE 1 TABLET BY MOUTH DAILY active Not Available Not Available No t Available cefuroxime axetil 500 mg tablet active Not Available Not Available No t Available polyethylen e glycol 3350 17 gram/dose oral powder MIX AND DRINK DIRECTED IN COLONOS[employer] PY PREP INSTRUCTI ONS RECEIVED FROM [facility] active Not Available Not Available No [...] Updated DateTime 12/30/2021 177.8 cm 27.4 kg/m2 00687.14 g Nicola Ware MD [address] [place] [address], [address] 12/30/2021 17:10:12 Date Recorded Body height Body mass index (BMI) Body weight Provider Name and Address Organization Details Last Updated DateTime 03/12/2022 177.8 cm 27.4 kg/m2 82642.14 g Rabia Ferrell [facility] 03/12/2022 13:55:47 Social History Question Answer Notes LastModified by Organizat ion Details LastModified Time Tobacco Smoking Status Never Smoker Nicola Ware MD [address] [place] [address], [address], [facility] 12/30/2021 17:11:00 What Is Your Level [...] Encounter Closed Date Diagnosis/Indication Diagnosis SNOMED-CT Code [id number] Nicola Ware MD [facility] [address] [place] [address] 12/30/2021 16:01:19 01/01/2022 09:36:50 Increased frequency of urination [id number] Malignant tumor of prostate 548653280 Hydronephrosis [id number] Aliza Landeros [facility] [address] [place] [address] 03/12/2022 13:13:50 03/15/2022 14:00:47 Increased frequency of urination [id number] Malignant tumor of prostate 478724377 Hydronephrosis [id number] Nicola Ware MD [facility] [address] [place] [address] 06/23/2023 14:16:52 06/24/2023 08:40:38 Blood in urine 90048971 Health Concerns Section Related Observation LastModified by Organization Detai ls LastModified Time None Recorded Concern Status LastModified by Organization Details LastModified Time None Recorded Advance Directives Directive None Recorded Payers Encounter Date Sequence Insurance Name Policy Number Policy Krishnan Covered Member ID Krishnan Member ID Guarantor Name 12/30/2021 1 [employer] (MEDICARE REPLACEMENT/ ADVANTAGE - PPO) [id number] José Miguel D Braucher [id number] José Miguel D Braucher 03/12/2022 1 [employer] (MEDICARE REPLACEMENT/ ADVANTAGE - PPO) [id number] José Miguel D Braucher [id number] José Miguel D Braucher 06/23/2023 1 [employer] (MEDICARE REPLACEMENT/ ADVANTAGE - PPO) [id number] José Miguel D Braucher [id number] José Miguel D Braucher Notes Date Note Type Note Provider Name and Address Organization Details Recorded Time 12/30/2021 text/html HPI Notes: Excer pt from hospital consultation... 81 y.o. year old male who was admitted to [facility] for gross hematuria & CT findings. Onset [...] not provided much discomfort. Medical Oncologist: Dr. aTn Radiation Oncologist: Dr. Frazier 10/08/20 Here for [...] some of the history. Nicola Ware MD [address] [place] [address],[address], [place], [address], [facility] 12/30/2021 23:07:10 03/12/2022 text/html HPI Notes: Excer pt from hospital consultation... 81 y.o. year old male who was admitted to [facility] for gross hematuria & CT findings. Onset [...] some of the history. Nicola Ware MD [address] [place] [address],[address], [place], [address], [facility] 03/12/2022 17:21:47 06/23/2023 text/html HPI Notes: 83 Y male here after calling triage this AM with hematuria/pain with urination. Patient has stent in place, last exchange 02/08/2022. 06/23/23 visit completed by Curry Ware MD [address] [place] [address],[address], [place], [address], [facility] 06/23/2023 16:19:33
--- OUTSIDE RECORDS SUMMARY | 2023-11-04 12:35 | XMS_ITS | Encounter Summary ---
Author Organization [facility] Address [address] [place] [address] Care Team Providers Care Supervisor Extrusion Name Role Phone Elsewhere, Pcp Primary Care Provider Unavailabl e Encounter Details Date Type Department Care Team (Late st Contact Info) Description 08/13/2023 4:35 PM CDT Ancillary Procedure Department of Radiology in [place], [place] [address] [place] [address] Carlos Alberto Henson M.D. [address] [place] [address] Social History Tobacco Use Types Packs/Day Years Used Date Smoking Tobacco: Never Smokeless Tobacco: Never [facility] Utilities Answer Date Recorded In the past 12 months has [facility] [employer], gas, oil, or water [employer] threatened to shut off services in your [...] CDT Office Visit Department of Urology in [address] [phone] Burke Strauss M.D. [address] [place] [address] Discharge Disposition: Home or Self Care documented [...] filedocumented in this encounter Care Teams Supervisor Extrusion Relationship Specialty Start Date End Date Elsewhere, Pcp PCP - General Internal Medicine 08/13/23 documented as of this encounter
--- OUTSIDE RECORDS SUMMARY | 2023-11-04 12:35 | XMS_ITS | Clinical Summary ---
Author Organization [employer] [facility] Address [place], [place] [address] Care Team Providers Care Millwright Apprentice Name Role Phone Cesar Mccollum MD Primary Care Provider Nicola Ware MD Unavailable [phone] Mireya Tan MD Unavailable [phone] [facility] Unavailable [phone] Allergies No known active allergies Medications Medication [...] type, unspecified whether angina present, unspecified whether unalakleet or transplanted heart Take 1 Tablet (75 [...] iron, carbonyl (Perfect Iron) 25 mg iron tabIndications:Cotton Picker Operator junior blood loss anemia 1 tablet p.o. daily 4 Active acetaminophen (TYLENOL EXTRA STRGTH) 500 mg tabletIndications:P ain Take 2 Tablets (1,000 mg) by mouth 3 times daily if needed for Pain. Max acetaminophen dose: 4000mg in 24 hrs. 4 Active amLODIPine (NORVASC) 10 mg tabletIndications:B enign essential HTN Take 0.5 Tablets (5 mg) by mouth once daily. 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 XYW=180.87 Bladder mass 02/29/2020 04/30/2020 Hematuria 02/29/2020 03/05/2020 Acute deep vein thrombosis (DVT) 02/29/2020 11/20/2020 S/P coronary angioplasty 11/03/2016 Chest pain 09/15/2016 03/05/2020 Elevated prostate specific antigen (PSA) 10/06/2010 03/05/2020 Hip arthritis 10/06/2010 03/05/2020 Colon polyp 07/15/2010 PATRICE (acute kidney injury) Obstructive uropathy 020 Encounters Date Type Department Care Team Description 10/31/2023 11:00 AM CDT Home Care Visit [address] [address] Doreen Hussein RN SN - HOME VISIT 10/31/2023 2:30 AM CDT Home Care Visit [address] [address] Liz Fang LICSW AGENT SPA DESK - MISSED VISIT 10/28/2023 10:30 AM CDT Home Care Visit [address] [address] Raffy Carter, PT PT - HOME VISIT 10/25/2023 11:30 AM CDT Home Care Visit [address] [address] Raffy Carter, PT PT - REASSESSMENT 10/24/2023 11:00 AM CDT Home Care Visit [address] [address] Doreen Hussein RN SN - HOME VISIT 10/24/2023 10:00 AM CDT Home Care Visit [address] [address] Liz Fang LICSW AGENT SPA DESK - HOME VISIT 10/21/2023 12:00 PM CDT Home Care Visit [address] [address] Raffy Carter, PT PT - HOME VISIT 10/20/2023 10:35 AM CDT Office Visit [address] [address] Cesar Mccollum MD Follow Up; Concerns (Discuss protocol for hyperbaric treatment at hospital) 10/20/2023 Travel 10/19/2023 9:45 AM CDT Home Care Visit [address] [address] Rigo Heart, JAMEL SN - HOME VISIT 10/18/2023 Home Care Visit [address] [address] Milli Torre, RN CARE COORDINATION 10/17/2023 3:00 PM CDT Home Care Visit [address] [address] Raffy Carter, PT PT - HOME VISIT 10/17/2023 10:00 AM CDT Home Care Visit [address] [address] Liz Fang [facility] AGENT SPA DESK - INITIAL ASSESSMENT 10/14/2023 Home Care Visit [address] [address] Raffy Carter, PT PT - MISSED VISIT 10/12/[address] [facility] [address] [place] [address] Cesar Mccollum MD Questions 10/11/2023 7:15 AM CDT Home Care Visit [address] [address] Manav Montero, RN SN - WOUND/OSTOMY CHART CONSULT 10/10/2023 4:00 PM CDT Home Care Visit [address] [address] Deonna Oliveira, ADELINA PT - HOME VISIT 10/10/2023 10:30 AM CDT Home Care Visit [address] [address] Milli Torre, RN SN - HOME VISIT 10/08/2023 9:00 AM CDT Home Care Visit [address] [address] Justyna Hernandez RN SN - INITIAL ASSESSMENT 10/08/[address] [facility] [address] [place] [address] Cesar Mccollum MD Home Care (BP med parameters) 10/07/2023 11:30 AM CDT Home Care Visit [address] [address] Raffy Carter, PT PT - HOME VISIT 10/07/2023 Home Care Visit [address] [address] Milli Torre, RN CARE COORDINATION 10/06/2023 1:00 PM CDT Ancillary Procedure [facility] [address] [place] [address] 10/06/2023 Travel 10/04/2023 1:00 PM CDT Office Visit [facility] [address] [place] [address] Souleymane Miller MD Follow Up (Annual Follow up /Coronary artery disease) 10/04/2023 10:15 AM CDT Home Care Visit [address] [address] Manav Rodríguez, PT PT - OASIS START OF CARE 10/04/2023 Telephone [facility] [address] [place] [phone] Manav Rodríguez, PT Home Care 10/04/2023 Orders Only [facility] [address] [place] [phone] Souleymane Miller MD 1 scan: (1-Ord) NFLD-EKG-10/04/23 10/04/2023 Travel 10/04/2023 Plan of Care Documentation [address] [address] 10/03/[address] [facility] [address] [place] [address] Cesar Mccollum MD 10/02/2023 Home Care Visit [address] [address] Saul Lawson, RN CARE COORDINATION 10/01/2023 Home Care Visit [facility] [address] [place] [address] Saul Lawson, RN CARE COORDINATION 09/29/2023 1:40 PM CDT Office Visit [facility] [address] [facility] [place] [address] Cesar Mccollum MD Hospital F/U ([place], urinary problem); Concerns (Bed sore - would like checked) 09/29/2023 Travel 09/23/[address] [facility] [address] [place] [address] Cesar Mccollum MD Results 09/22/2023 10:30 AM CDT Orders Only [facility] [place] [address] Lab, [place] [facility] 09/22/2023 9:50 AM CDT Nurse/Clinic Staff Only [facility] [address] [place] [facility] [address] Dressing Change 09/22/[address] [facility] [address] [place] [facility] [address] Cesar Mccollum MD Results 09/22/2023 Travel 09/21/2023 3:20 PM CDT Nurse/Clinic Staff Only [facility] [address] [place] [address] Procedure (UA collection from jon and neph tube) 09/21/[address] [facility] [address] [place] [address] Letty Mera MD 09/20/2023 2:15 PM CDT Ancillary Procedure [facility] [address] [place] [address] 09/20/2023 1:00 PM CDT Office Visit [facility] [address] [place] [address] Letty Mera MD Hospital F/U (Admission Date: 09/09/2023 Discharge Date: 09/15/23); Wound Check (sacrum & neph tube site. ); Home Care; Concerns (Feels like catheter is falling out - pt states that it is leaking. ) 09/20/2023 Travel 09/15/2023 Transcribe Orders [facility] [address] [place] [address] Provider, Non-Excellian 09/13/[address] [facility] [address] [place], [place] [phone] eCsar Mccollum MD Procedure (social media project manager) 08/31/2023 Transcribe Orders [facility] [address] [place] [address] Senthil Alvarez MD 08/30/2023 Orders Only [facility] Scanner 1 scan: (1-Ord) [facility], 08/30/2023 08/23/2023 Transcribe Orders [facility] [address] [place] [address] Provider, Non-Excellian 08/13/2023 Orders Only [facility] Scanner 1 scan: (1-Ord) [facility], ABDOMEN/PELVIS W/O, 08/13/2023 from Last 3 Months Immunizations Name Administration Dates Next Due COVID-19 Vaccine Spikevax (M oderna 50mcg/0.5mL) 12YO+ [id number] Formula PF 07/21/2023,03/08/2023 COVID-19 vaccine (Pfizer-Bio NTech [...] Sign Reading Time Taken Comments Blood Pressure 105/65 10/31/2023 11:50 AM CDT Pulse 87 10/31/2023 11:50 AM CDT Temperature 36.7 ??C (98.1 ??F) 10/31/2023 11:50 AM C DT Respiratory Rate 15 10/28/2023 11:35 AM CDT Oxygen Saturation 98% 10/31/2023 11:50 AM CDT Inhaled Oxygen Concentration - - Weight 80.4 kg (177 lb 3.2 oz) 10/20/2023 10:38 AM CDT Height 177.1 cm (5' 9.72) 07/21/2023 9:05 AM CD T Body Mass Index 25.63 07/21/2023 9:05 AM CDT Plan of Treatment Upcoming Encounters Date Type Department Care Team (Late st Contact Info) Description 11/07/2023 4:00 AM CDT Home Care Visit [address] [address] Doreen Hussein RN [address] [place] [address] 11/11/2023 3:00 AM CDT Home Care Visit [address] [address] Raffy Carter, PT [address] [place] [address] 11/14/2023 4:00 AM CDT Home Care Visit [address] [address] Doreen Hussein RN [address] [place] [address] 11/18/2023 3:00 AM CDT Appointment [address] [address] Raffy Carter, PT [address] [place] [address] 11/21/2023 4:00 AM CDT Home Care Visit [address] [address] Doreen Hussein RN [address] [place] [address] 11/23/2023 2:05 PM CDT Office Visit [facility] [address] [place] [address] Cesar Mccollum MD [address] [place] [address] 11/28/2023 4:00 AM CDT Home Care Visit [employer] [facility] [address] [place] [address] Doreen Hussein, JAMEL [address] [place], [place] [phone] Health Maintenance Due Date Last Done Comments [...] Completed 4 Medical Devices Implanted Type Area Truck Trailer Final Inspector Device Identifier Shelf Expiration Date Model / Serial / Lot Stent Uret [id number] - [id number] Implanted:Qty: 1 on 07/18/2023 by Nicola Ware MD at [facility] Right: Ureter [employer] [facility] 02/27/2026 [id number] / / [id number] Procedures Procedure Name Priority Date/Time Associated Diagnosis Comments ECHO TTE COMPLETE WO CONTRAST DEBBI 10/06/2023 1:34 PM CDT Coronary artery disease, unspecified vessel or lesion type, unspecified whether angina present, unspecified whether unalakleet or transplanted heart EKG 12 LEAD Routine 10/04/2023 2:15 PM CDT Coronary artery disease, unspecified vessel or lesion type, unspecified whether angina present, unspecified whether unal[place]leet or transplanted heart VT READING EKG - NO CHARGE, COMP ONLY Routine 10/04/2023 2:14 PM CDT Coronary artery disease, unspecified vessel or lesion type, unspecified whether angina present, unspecified whether unal[place]leet or transplanted heart CBC WITH AUTO DIFFERENTIAL [...] CDT SCAN-CT INTERPRETATION 4 12:00 AM CDT from Last 3 Months Results * ECHO TTE COMPLETE WO CONTRAST (10/06/2023 1:34 PM CDT) AORTIC VALVE MEAN PG 10 mmHg EJECTION FRACTION 60 % PEAK TR VELOCITY 2.8 m/s LVEDD 4.2 cm EJECTION FRACTION 65 - 70% Anatomical Region Laterality Modality Ultrasound 10/06/2023 12:5 9 PM CDT Narrative 10/06/2023 2:17 PM CDT ECHOCARDIOGRAM SHYAM SANDS ? Accession#: ?? [id number] : ?1940 83 years Study Date: ?? 10/06/2023 12:59:18 PM Gender: M ?BP: ? 131/72 mmHg Height: 175.26 cm ?BSA: ?1.98 m? ? ? Weight: 81.65 kg ? Tech: ? MBF ? Referring MD: SOULEYMANE MILLER Site: ? [facility] Location: [facility] Patient Location: Outpatient. Procedure: 2D, Color [...] . This study was interpreted by an [facility] accredited facility. ??Final ?? Procedure Note Manav Feliciano MD - 10/06/2023 ECHOCARDIOGRAM SHYAM SANDS : 1940 83 years Study Date: 10/06/2023 12:59:18 PM Gender: M BP: 131/72 mmHg Height: 175.26 cm BSA: 1.98 m? ? ? Weight: 81.65 kg Tech: [facility] Referring MD: SOULEYMANE MILLER Site: [facility]: [facility] Patient Location: Outpatient. [...] . This study was interpreted by an [facility] accredited facility. Final Souleymane Miller MD ECHO ORD * EKG 12 LEAD (10/04/2023 2:15 PM CDT) Souleymane Miller MD EKG ORD * VT READING EKG - NO CHARGE, COMP ONLY [...] MD HEMATOLOGY [facility] [address] [place] [address], * (ABNORMAL) URINE CULTURE (09/21/2023 4:40 PM CDT) Only the most recent of2 resultswithin the time period is included. CULTURE RESULT(A) 09/24/2023 9:54 AM CDT [facility] CULTURE >100,000 CFU/mL Shirin albicans 09/24/2023 9:54 AM CDT [facility] Urine URINE SPECIMEN / Unknown Non-Blood / Unknown 09/21/2023 4:40 PM CDT 09/21/2023 4:41 PM CDT Letty Mera MD MICROBIOLO GY [facility] [address] [place] [address], [place] * XR CHEST 2 VIEWS PA [...] Anatomical Region Laterality Modality Other Scanner OTHER from Last 3 Months Advance Directives Documents on File Type Date Recorded Patient Hr Representative Expl anation Healthcare Directive 05/15/2021 022 * [...] Code Status Discussion: Reviewed Preferences Care Teams Millwright Apprentice Relationship Specialty Start Date End Date Cesar Mccollum MD [address] [place] [address] PCP - General Family Practice 03/04/20 Nicola Ware MD [address] [place] [address] Surgery - Urology 03/13/20 Mireya Tan MD [address] [place] [address] Hematology - Pathology 03/13/20 [facility] [address] [place] [address] 09/29/23
== END 2023-11-04 12:27 | disposition home or self-care (01) ==
LOC: WOUND 12:26
PROVIDERS: PCP Family Medicine; Visit Provider Nurse Practitioner Family
DX: N30.41 Irradiation cystitis with hematuria (principal); L89.153 Pressure ulcer of sacral region, stage 3; K62.7 Radiation proctitis; Y84.2 Radiological procedure and radiotherapy as the cause of abnormal reaction of the patient, or of later complication, without mention of misadventure at the time of the procedure
CPT/HCPCS: 11042; G0277

== ENCOUNTER 2023-11-09 13:00 | Outpatient (RCR) | payer MEDICARE, OTHER, SELFPAY ==
[2023-10-18 14:12] LABS: Basophils Absolute Auto 0.01 K/uL (0.00-0.30); Basophils Percent Auto 0.1 % (0.0-3.0); Eosinophils Percent Auto 1.3 % (0.0-7.0); Hematocrit 29.5 % (37.0-53.0); Hemoglobin* 9.2 gm/dL (13.5-17.5); Immature Granulocytes Abs Auto 0.06 K/uL (0.00-0.30); Immature Granulocytes Pct Auto 0.8 %; Lymphocytes Percent Auto 7.9 % (20-44); Mean Corpuscular HGB Conc 31 gm/dL (32-36); Mean Corpuscular Hemoglobin 30 pg (26-34); Mean Corpuscular Volume 95 fL (80-100); Monocytes Percent Auto 7.9 % (0.0-11.0); Platelet Count* 337 K/uL (140-440); RDW Coefficient of Variation % 19.4 % (11.5-15.5); Red Blood Count 3.12 m/uL (4.30-5.90); White Blood Count* 7.86 K/uL (4.50-11.00)
[2023-10-18 14:55] LABS: Slide Review Reflex No
== END 2023-11-09 23:59 | disposition home or self-care (01) ==
LOC: WOUND 13:00
PROVIDERS: PCP Family Medicine; Visit Provider Physician Assistant Surgical
DX: N30.41 Irradiation cystitis with hematuria (principal); L89.153 Pressure ulcer of sacral region, stage 3; K62.7 Radiation proctitis; D64.9 Anemia, unspecified; Y84.2 Radiological procedure and radiotherapy as the cause of abnormal reaction of the patient, or of later complication, without mention of misadventure at the time of the procedure; R42 Dizziness and giddiness; Z53.8 Procedure and treatment not carried out for other reasons
CPT/HCPCS: 36415; 82962; 85025; G0277; G0463

== ENCOUNTER 2023-11-11 12:45 | Outpatient (CLI) | payer MEDICARE, OTHER, SELFPAY ==
--- OUTSIDE RECORDS SUMMARY | 2023-11-15 11:51 | XMS_ITS | Clinical Summary ---
Author Organization [place] Address [address] [place] [address] Care Team Providers Care Trial Court Judge Name Role Phone Cesar Mccollum Primary Care Provider [phone] Allergies No known active allergies Medications Medication [...] this topic Medical Devices Implanted Type Area Pharmacy Graduate Intern Device Identifier Shelf Expiration Date Model / Serial / Lot Stent Ureteral Polaris Ultra [id number] - [id number] Implanted:Qty : 1 on 02/08/2022 by Nicola Ware MD at [facility] Stent Right: U[employer]ter [employer] [id number] 10/08/2024 [id number] Explanted Type Area Pharmacy Graduate Intern Device Identifier Shelf Expiration Date Model / Serial / Lot Stent Came Out Of The Right Ureter Explanted:Qty: 1 on 02/08/2022 by Nicola Ware MD at [facility] Right: Urethra Advance Directives For more information, please contact: [phone] Documents on File Type Date Recorded Patient Consular Officer Expl anation Advance Directives and Living Will 02/17/2022 Health Care Directiv e 05/15/2021 Healthcare Agents on File Name Relationship Healthcare Agent Relationship Communication Mindy Waterman Daughter Co-First Alterna te Health Care Agent Meera Vega Spouse Health Care Agent [phone] (Home) Favio Vega Son Co-First Evangelina brock Health Care Agent Tereso Vega Son Co-First Fidencio dalton Health Care Agent Care Teams Trial Court Judge Relationship Specialty Start Date End Date Cesar Mccollum [address] [place] [address] PCP - General Family Medicine 11/22/22
--- OUTSIDE RECORDS SUMMARY | 2023-11-15 11:51 | XMS_ITS | Referral Summary ---
Author Organization [facility] Address [address] [place] [address] Care Team Providers Care Lockstitch Lining Setter Name Role Phone Cesar Mccollum Primary Care Provider [phone] Allergies No known active allergies Medications Medication [...] on file Medical Devices Implanted Type Area Energy Broker Device Identifier Shelf Expiration Date Model / Serial / Lot Stent Ureteral Polaris Ultra [id number] - [id number] Implanted:Qty : 1 on 02/08/2022 by Nicola Ware MD at [facility] Stent Right: [employer]ter [employer] [id number] 10/08/2024 [id number] Explanted Type Area Energy Broker Device Identifier Shelf Expiration Date Model / Serial / Lot Stent Came Out Of The Right Ureter Explanted:Qty: 1 on 02/08/2022 by Nicola Ware MD at [facility] Right: Urethra Advance Directives For more information, please contact: [phone] Documents on File Type Date Recorded Patient Forex Trader Expl anation Advance Directives and Living Will 02/17/2022 Health Care Directiv e 05/15/2021 Healthcare Agents on File Name Relationship Healthcare Agent Relationship Communication Mindy Waterman Daughter Co-First Alterna te Health Care Agent Meera Vega Spouse Health Care Agent [phone] (Home) Favio Vega Son Co-First Altern ate Health Care Agent Tereso Vega Son Co-First Alterna te Health Care Agent Care Teams Lockstitch Lining Setter Relationship Specialty Start Date End Date Cesar Mccollum [address] [place] [address] PCP - General Family Medicine 11/22/22
--- OUTSIDE RECORDS SUMMARY | 2023-11-15 11:52 | XMS_ITS | Clinical Summary ---
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 For routine questions regarding patient records, call [phone] during business hours, M-F 8:00 AM - 5:00 PM Central Time. Record requests for emergency care only can be directed to [phone] at any time.[facility] Allergies No known active allergies Medications Medication Sig Dispensed Refills Start Date End Date Status amLODIPine (NORVASC) 10 mg tablet Take 10 mg by mouth daily. Takes in the afternoon, 1 to 2 pm 01/11/2020 Suspended clopidogreL (PLAVIX) 75 mg tablet Take 75 mg by mouth every morning. 12/27/2019 Suspended metoprolol succinate (TOPROL-XL) 50 mg 24 hr tablet Take 50 mg by mouth at bedtime. 11/02/2019 Suspended nitroglycerin (NITROSTAT) 0.[address] 0.4 mg under the tongue every 5 (five) minutes as needed for chest pain. If chest pain continues after 5 minutes, take the second dose and call 911 11/02/2019 Suspended tamsulosin (FLOMAX) 0.4 mg 24 hr capsule TAKE 1 CAPSULE(0.4 MG) BY MOUTH DAILY 30 capsule 06/10/2020 Suspended Additional Information Patient taking differently: 0.4 mg oral Daily at bedtime, Informant: Self, Child, Reported on 09/09/2023 enzalutamide (XTANDI) 40 mg capsule Take 120 mg by mouth every morning. Take with or without food at the same time each day. Swallow it whole. Suspended iron,carbonyl-vit miller C (VITRON-C) 65 mg iron- [address] tablet Take 65 mg of iron by mouth every morning. Do not crush or chew. Suspended coenzyme Q10 (CO Q-10) 200 mg capsule Take 200 mg by mouth daily. Suspended cholecalciferol (Vitamin D3) 50 mcg (2,000 Unit) tablet Take 50 mcg by mouth daily. Suspended rosuvastatin (CRESTOR) 40 mg tablet Take 40 mg by mouth at bedtime. Suspended mirabegron (MYRBETRIQ) 50 mg 24 hr tablet Take 50 mg by mouth daily. Takes in the afternoon, 1-2 pm Suspended Xarelto 10 mg tablet Take 10 mg by mouth every morning. Suspended trospium (SANCTURA) 20 mg tablet Take 1 tablet (20 mg total) by mouth 2 (two) times a day as needed (bladder spasms). please stop 24 hours prior to catheter removal 20 tablet 08/26/2023 Suspended Additional Information Active Problems Problem Noted Date Diagnosed Date Hematuria Gross 08/31/2023 Hematuria 08/13/2023 Lymphedema 03/21/2020 Primary Malignant Neoplasm Of Prostate 0 Cancer Staging:Clinical stage from 03/03/2020:Stage IVB(cT4, cN1, pM1b, PSA: 161.9) - Signed by Tereso Frazier M.D. on 03/21/2020 Encounters Date Type Department Care Team Description 11/15/2023 10:40 AM CDT Ancillary Procedure Department of Wound Ostomy Arrived 11/14/2023 11:38 PM CDT - Present Hospital Encounter [facility], Fifth Floor [address] [place] [phone] Eliceo Guerrier M.D., Ph.D. Sylvie Álvarez M.B.B.S., M.Craig. Rashawn Vences M.D. 11/14/2023 10:44 AM CDT - 11/14/2023 10:23 PM CDT Emergency [facility] [address] [place] [phone] Sergio Raza M.D. Hematuria (Primary Dx); Malfunction Mechanical Urethral Catheter Initial (HCC) Discharge Disposition: Acute Care Hospital 11/14/2023 Documentation Department of Urology in [address] [phone] Sowmya Aviles APRN C.N.P., M.S.N. 11/10/2023 Clinical Communication Department of Urology in [address] [phone] Burke Strauss M.D. Oncology records request 11/09/2023 11:00 AM CDT Office Visit Department of Urology in [address] [phone] Burke Strauss M.D. Primary Malignant Neoplasm Of Prostate (HCC) (Primary Dx); Retention Urinary Chronic; Hematuria Gross Discharge Disposition: Home or Self Care 11/09/2023 Clinical Communication Department of Urology in [address] [phone] Burke Strauss M.D. 10/27/2023 Clinical Communication Department of Urology in [address] [phone] Burke Strauss M.D. 10/14/2023 1:00 PM CDT Procedure visit Department of Urology in [place], [place] [address] [place] [phone] Paula Hernandez M.D. Reichmann, Lynne G RNarendra Hematuria 10/14/2023 Documentation Department of Urology in [place], [place] [address] [place] [address] Paula Hernandez M.D. Catheter Care Plan 09/27/2023 Clinical Communication Department of Urology in [place], [place] [address] [place] [phone] Paula Hernandez M.D. 09/21/2023 Clinical Communication Department of Urology in [place], [place] [address] [place] [phone] Paula Hernandez M.D. 09/16/2023 Clinical Communication Department of Urology in [place], [place] [address] [place] [phone] Provider, Unknown follow up questions 09/16/2023 Orders Only Department of Urology in [place], [place] [address] [place] [phone] Paula Hernandez M.D. Hematuria Gross (Primary Dx) 09/15/2023 Clinical Communication [facility] [address] [place] [phone] Yasmine Loco 09/09/2023 12:10 PM CDT Ancillary Procedure Department of Nursing 09/09/2023 7:24 AM CDT - 09/15/2023 5:28 PM CDT Hospital Encounter [facility], Sixth Floor [address] [place] [phone] Gerri Merrill M.D., Ph.D. Sumit Holbrook M.D. Hematuria (Primary Dx) Discharge Disposition: Home or Self Care 09/09/2023 Documentation Department of Urology in [place], [place] [address] [place] [phone] Ko Victoria M.D. 09/06/2023 Orders Only Section of Hyperbaric Medicine in [address] [phone] Kira Ferraro APRN, C.N.P., M.S.N. 09/06/2023 Clinical Communication [facility] [address] [place] [phone] Yasmine Loco 09/01/2023 10:05 AM CDT Ancillary Procedure Department of Nursing 08/31/2023 12:36 PM CDT - 08/31/2023 2:31 PM CDT Surgery [facility] [address] [place] [phone] Mayur Alvarez M.D. CYSTOSCOPY EVACUATION CLOTS 08/31/2023 12:34 PM CDT Anesthesia Event [facility] [address] [place] [phone] Joe Stoll M.D. Gran, Terry L, ARUN, BUTTER MAKER 08/31/2023 12:25 PM CDT Ancillary Procedure Department of General Surgery 08/30/2023 7:35 PM CDT - 09/05/2023 4:09 PM CDT Hospital Encounter [facility], First Floor [address] [place] [phone] Kirstin Hughes M.D. Thompson, R. Houston, M.D. Hematuria (Primary Dx); Tachycardia; Hematuria Gross Discharge Disposition: Home-Health Care [facility] 08/30/2023 Documentation Department of Urology in [place], [place] [address] [place] [phone] Corin Ring M.D. 08/30/2023 Intake [facility] 08/26/2023 Orders Only Department of Urology in [place], [place] [address] [place] [phone] Paula Hernandez M.D. 08/23/2023 12:45 AM CDT Ancillary Procedure Department of Nursing 08/15/2023 8:30 AM CDT Anesthesia Event [facility] [address] [place] [phone] Hayde Song M.D. 08/15/2023 7:55 AM CDT - 08/15/2023 11:23 AM CDT Surgery [facility] [address] [place] [phone] Boubacar Brock M.D. Palliative EXPLORATORY LAPAROTOMY, CYSTOTOMY CLOSURE, RIGHT URETERAL STENT EXCHANGE 08/13/2023 3:42 PM CDT - 08/26/2023 4:11 PM CDT Hospital Encounter [facility], Sixth Floor [address] [place] [phone] Darnell Garcia M.D. Chow, George K, M.D. Decline Functional Status [R53.81] (Primary Dx); Hematuria [R31.9] Discharge Disposition: Home or Self Care from Last 3 Months Social History Tobacco Use Types Packs/Day Years Used Date Smoking Tobacco: Never Smokeless Tobacco: Never Tobacco Cessation:Counseling Given: Not Answered [facility] Utilities Answer Date Recorded In the past 12 months has e [employer], gas, oil, or water company threatened to shut off services in your home? No 11/15/2023 Humiliation, Afraid, Rape, and Kick questionnair e Answer Date Recorded Within the last year, have y ou been afraid of your partner or ex-partner? No 11/15/2023 Within the last year, have y ou been humiliated or emotionally abused in other ways by your partner or ex-partner? No Within the last year, have y ou been kicked, hit, slapped, or otherwise physically hurt by your partner or ex-partner? No 11/15/2023 Within the last year, have y ou been raped or forced to have any kind of sexual activity by your partner or ex-partner? No 11/15/2023 Hunger Vital Sign Answer Date Recorded Within the past 12 months, y ou worried that your food would run out before you got the money to buy more. Never true 11/15/19 24 Within the past 12 months, t he food you bought just didn't last and you didn't have money to get more. Never true 11/15/2023 PRAPARE - Transportation Answer Date Re corded In the past 12 months, has l ack of transportation kept you from medical appointments or from getting medications? No 09/2023 In the past 12 months, has l ack of transportation kept you from meetings, work, or from getting things needed for daily living? No 11/15/2023 Nutrition Answer Date Recorded Nutrition: EVOO Fat Source 13 09/22 Nutrition: Servings of Fruits/Vegetables per Day Not on file 09/22/2018 Dental Answer Date Recorded Dental: Regular Dentist Unknown 05/30/19 21 Housing Stability Answer Date Recorded What is your living situation today? I have a [facility] place to live 11/15/2023 Sex and Gender Information Value Date Recorded Sex Assigned at Not on file Gender Identity Not on file Sexual Orientation Not on file Last Filed Vital Signs Vital Sign Reading Time Taken Comments Blood Pressure 118/65 11/15/2023 10:14 AM CDT Pulse 67 11/15/2023 10:14 AM CDT Temperature 36.6 ??C (97.9 ??F) 11/15/2023 10:14 AM C DT Respiratory Rate 16 11/15/2023 10:14 AM CDT Oxygen Saturation 97% 11/15/2023 10:14 AM CDT Inhaled Oxygen Concentration - - Weight 84.1 kg (185 lb 6.5 oz) 11/15/2023 5:05 A M CDT Height 177.8 cm (5' 10) 11/14/2023 11:59 PM CDT Body Mass Index 26.6 11/14/2023 11:59 PM CDT Plan of Treatment Upcoming Encounters Date Type Department Care Team (Latest Contact Info) Description 12/07/2023 10:15 AM CDT Procedure visit Department of Urology in [place] [address] [place] [phone] Burke Strauss M.D. [address] [place] [phone] Discharge Disposition: Home or Self Care 12/07/2023 10:30 AM CDT Office Visit Department of Urology in [place] [address] [place] [phone] Burke Strauss M.D. [address] [place] [phone] Discharge Disposition: Home or Self Care Health Maintenance Due Date Last Done Comments Zoster Vaccines (1 of 2) 1989 Depression Screening (Annual PHQ-2) 04/11/2023 Influenza Vaccine (#1) 2024 03/08/2023, 2021 DTaP,Tdap,and Td Vaccines (2 - Td or Tdap) 09/07/2026 09/07/2016 COVID-19 Vaccine Completed 07/21/2023, , 09/13/2022, Additional history exists Pneumococcal vaccine (65+ years) Completed 07/21/19 Fall Risk Screen (Annual) Completed 11/14/2023 Medical Devices Implanted Type Area Debate Director Device Identifier Shelf Expiration Date Model / Serial / Lot Clp Hrzn Ti 6 Clp Lg Orng - [id number] Implanted:Qt y: 1 on 08/15/2023 by Boubacar Brock M.D. at [facility] Hardware e.g. pins/screws /rods [employer] [id number] 02/29/2028 [id number] / / [id number] Clp Hrzn Ti 6 Clp Lg Orng - [id number] Implanted:Qt y: 1 on 08/15/2023 by Boubacar Brock M.D. at [facility] Hardware e.g. pins/screws /rods [employer] [id number] 02/29/2028 [id number] / / [id number] Clp Hrzn Ti 6 Clp Md Monty - [id number] Implanted:Qt y: 1 on 08/15/2023 by Boubacar Brock M.D. at [facility] Hardware e.g. pins/screws /rods [employer] [id number] 03/13/2028 [id number] / / [id number] Clp Hrzn Ti 6 Clp Md Monty - [id number] Implanted:Qt y: 1 on 08/15/2023 by Boubacar Brock M.D. at [facility] Hardware e.g. pins/screws /rods [employer] [id number] 03/21/2028 [id number] / / [id number] 3 Stnt Uret Inl 6fx24 - [id number] Implanted:Qt y: 1 on 08/15/2023 by Jakob De Paz M.D. at [facility] Ureteral Stent N/A: Ureter C.[employer].Bard [id number] 11/18/2027 [id number] / / [id number] Procedures The patient is currently admitted. The information in this section might not be complete until the patient is discharged. Procedure Name Priority Date/Time Associated Diagnosis Comments TESTING LOCATION Routine 11/15/2023 11:09 AM CDT WOUND OSTOMY IMAGE EXAM Routine 11/15/2023 10:40 AM CDT COMPREHENSIVE METABOLIC PANEL, S/P Routine 11/15/2023 7:31 AM CDT CBC WITH DIFFERENTIAL, B Routine 11/15/2023 7:31 AM CDT ECG Routine 11/15/2023 6:47 AM CDT HC URINALYSIS AUTO WO MICRO Routine 11/15/2023 6:25 AM CDT URINALYSIS WITH MICROSCOPIC IF INDICATED, U Routine 11/15/2023 6:[address] ABDOMEN PELVIS WITHOUT IV CONTRAST RAD - Semiurgent (Fast; most ED patients; some inpatients) 11/14/2023 2:07 PM CDT BLOOD BANK HOLD SAMPLE Routine 11/14/2023 11:09 AM CDT CBC WITH DIFFERENTIAL, B STAT 11/14/2023 11:09 AM CDT BASIC METABOLIC PANEL, S/P STAT 11/14/2023 11:09 AM CDT CBC WITHOUT DIFFERENTIAL, B Routine 09/15/2023 3:37 [...] DIFFERENTIAL, B Timed 08/15/2023 3:30 AM CDT from Last 3 Months Results * Testing Location (11/15/2023 11:09 AM CDT) Testing Location [facility] DEFAULT 11/15/2023 11:47 AM CDT [facility] Blood 11/15/2023 11:0 9 AM CDT 11/15/2023 11:47 AM CDT Sergio Raza M.D. LAB BLOOD BANK TEST ORDERABLES Performing Organization Address City/[facility]/ZIP Co de Phone Number [facility] [address] [place] [address], [facility] [place] [address] * Coccyx-Wound Ostomy Image Exam (11/15/2023 10:40 AM CDT) 11/15/2023 10:3 7 AM CDT Narrative [facility] - 11/15/2023 10:40 AM CDT This order has been created and auto-finalized to support the import of images acquired without order. The clinical documentation to support these images can be found on the encounter that produced images. Provider Not In System IMG NON RAD IMAGI NG PROCEDURES Performing Organization Address City/[facility]/ZIP Co de Phone Number [facility] NA * (ABNORMAL) CBC with Differential, Blood (11/15/2023 7:31 AM CDT) Only the most recent of6 resultswithin the time period is included. Hemoglobin 7.7(L) 13.2 - 16.6 g/dL 11/15/2023 8:02 AM CDT [facility] Hematocrit 25.7(L) 38.3 - 48.6 % 11/15/2023 8:02 AM CDT [facility] Erythrocytes 2.73(L) 4.35 - 5.65 x10(12)/L 11/15/2023 8:02 AM CDT [facility] MCV 94.1 78.2 - 97.9 fL 11/15/2023 8:02 AM CDT [facility] RBC Distrib Width 17.2(H) 11.8 - 14.5 % 11/15/2023 8:02 AM CDT [facility] Platelet Count 382(H) 135 - 317 x10(9)/L 11/15/2023 8:02 AM CDT [facility] Leukocytes 7.1 3.4 - 9.6 x10(9)/L 11/15/2023 8:02 AM CDT [facility] Neutrophils 5.70 1.56 - 6.45 x10(9)/L 11/15/2023 8:01 AM CDT [facility] Lymphocytes 0.56(L) 0.95 - 3.07 x10(9)/L 11/15/2023 8:02 AM CDT [facility] Monocytes 0.61 0.26 - 0.81 x10(9)/L 11/15/2023 8:02 AM CDT [facility] Eosinophils 0.21 0.03 - 0.48 x10(9)/L 11/15/2023 8:02 AM CDT [facility] Basophils <0.03 0.01 - 0.08 x10(9)/L 11/15/2023 8:02 AM CDT [facility] Blood (Blood, Venous) 11/15/2023 7:31 AM CDT 11/15/2023 7:53 AM CDT Sylvie Wright M.D. LAB BLO OD ADD-ON [facility] [place] [address], [facility] [place] [address] [place] [address] * (ABNORMAL) Comprehensive Metabolic Panel (11/15/2023 7:31 AM CDT) Only the most recent of2 resultswithin the time period is included. Potassium, P 4.2 3.6 - 5.2 mmol/L 11/15/2023 8:37 AM CDT [facility] Sodium, P 138 135 - 145 mmol/L 11/15/2023 8:37 AM CDT [facility] Chloride, P 107 98 - 107 mmol/L 11/15/2023 8:37 AM CDT [facility] Bicarbonate, P 22 22 - 29 mmol/L 11/15/2023 8:37 AM CDT [facility] Anion Gap, P 9 7 - 15 11/15/2023 8:37 AM CDT [facility] BUN (Blood Urea Nitrogen), P 19 8 - 24 mg/dL 11/15/2023 8:37 AM CDT [facility] Creatinine 1.04 0.74 - 1.35 mg/dL 11/15/2023 8:37 AM CDT [facility] Estimated GFR (eGFR) 71 >=60 mL/min/BS A 11/15/2023 8:37 AM CDT [facility] Comment: Estimated GFR calculated using the 2020 CKD_EPI creatinine equation. Calcium, Total, P 8.3(L) 8.8 - 10.2 mg/dL 11/15/2023 8:37 AM CDT [facility] Glucose, P 108 70 - 140 mg/dL 11/15/2023 8:37 AM CDT [facility] Protein, Total, P 6.1(L) 6.3 - 7.9 g/dL 11/15/2023 8:37 AM CDT [facility] Albumin, P 3.0(L) 3.5 - 5.0 g/dL 11/15/2023 8:37 AM CDT [facility] Aspartate Aminotransferase (AST), P 11 8 - 48 U/L 11/15/2023 8:37 AM CDT [facility] Alkaline Phosphatase, P 55 40 - 129 U/L 11/15/2023 8:37 AM CDT [facility] Alanine Aminotransferase (ALT), P 8 7 - 55 U/L 11/15/2023 8:37 AM CDT [facility] Bilirubin, Total, P 0.3 0.0 - 1.2 mg/dL 11/15/2023 8:37 AM CDT [facility] Blood (Blood, Venous) 11/15/2023 7:31 AM CDT 11/15/2023 7:53 AM CDT Sylvie Wright M.D. LAB BLO OD ADD-ON [facility] [address] [place] [address], [place] [facility] [place] [address] [place] [address] * ECG 12 Lead (11/15/2023 6:47 AM CDT) Only the most recent of3 resultswithin the time period is included. Ventricular Rate ECG/Min 65 BPM MUSE LA Interval 144 ms MUSE QRSD Interval 76 ms MUSE QT Interval 430 ms MUSE QTC Interval 447 ms MUSE P [place] -7 degrees MUSE R [place] 9 degrees MUSE T Wave [place] 19 degrees MUSE 11/15/2023 6:47 AM CDT 11/15/2023 6:53 AM CDT Impressions MUSE - 11/15/2023 6:53 AM CDT Normal sinus rhythm Normal ECG When compared with ECG of 30-Aug-2023 19:44, Premature atrial complexes are no longer present Vent. rate has decreased by ??80 bpm Reviewed by BETTY [place] Sylvie Wright M.D. ECG ORD ERABLES Performing Organization Address City/[facility]/ZIP Co de Phone Number MUSE NA * (ABNORMAL) Urinalysis with Microscopic if Indicated (11/15/2023 6:25 AM CDT) Source Urine, Urine, Midstream 11/15/2023 7:49 AM CDT [facility] Clarity Turbid(A) Clear 11/15/2023 8:03 AM CDT [facility] Color Red(A) 11/15/2023 8:03 AM CDT [facility] Comment: ----REFERENCE VALUE---- Colorless Yellow Ladan Blood SEE COMMENT Negative 11/15/2023 8:03 AM CDT [facility] Comment:Unable to determine due to color interference Nitrite SEE COMMENT Negative 11/15/2023 8:03 AM CDT [facility] Comment:Unable to determine due to color interference Leukocyte Esterase SEE COMMENT Negative 11/15/2023 8:03 AM CDT [facility] Comment:Unable to determine due to color interference Protein SEE COMMENT mg/dL 11/15/2023 8:03 AM CDT [facility] Comment: Unable to determine due to color interference ----REFERENCE VALUE---- Negative Trace Glucose SEE COMMENT Negative mg/dL 11/15/2023 8:03 AM CDT [facility] Comment:Unable to determine due to color interference Ketone SEE COMMENT Negative mg/dL 11/15/2023 8:03 AM CDT [facility] Comment:Unable to determine due to color interference Bilirubin SEE COMMENT Negative 11/15/2023 8:03 AM CDT [facility] Comment:Unable to determine due to color interference pH SEE COMMENT 5.0 - 8.0 11/15/2023 8:03 AM CDT [facility] Comment:Unable to determine due to color interference Specific Oakley SEE COMMENT 1.001 - 1.035 11/15/2023 8:03 AM CDT MKTO Comment:Unable to determine due to color interference Urobilinogen SEE COMMENT 0.2 - 1.0 mg/dL 11/15/2023 8:03 AM CDT [facility] Comment:Unable to determine due to color interference Urine (Urine, Midstream) 11/15/2023 6:25 AM CDT 11/15/2023 6:34 AM CDT Sylvie Wright M.D. LAB URI NE ORDERABLES [facility] [address] [place] [address], [facility] [place] [address] * (ABNORMAL) Microscopic Automated (11/15/2023 6:25 AM CDT) White Blood Cells >100(A) /hpf 11/15/2023 8:03 AM CDT [facility] Comment: ----REFERENCE VALUE---- Males: 0-3 Females: 0-10 Unknown: 0-10 Red Blood Cells >100(A) 0 - 2 /hpf 8:03 AM CDT [facility] Dysmorphic Red Blood Cells <=25 <=25 % 11/15/2023 8:03 AM CDT [facility] Squamous Cells Occ-3 /hpf 11/15/2023 8:03 AM CDT [facility] Bacteria Present(A) None Seen 11/15/2023 8:03 AM CDT [facility] Urine 11/15/2023 6:25 AM CDT 11/15/2023 6:34 AM CDT Sylvie Wright M.D. LAB URI NE ORDERABLES [facility] [address] [place] [address], [facility] [place] [address] [place] [address] * CT Abdomen Pelvis without IV Contrast (11/14/2023 2:07 PM CDT) Only the most recent of2 resultswithin the time period is included. Anatomical Region Laterality Modality Abdomen, Pelvis, Abdominal R ST LOS, Abdominal ARZ LOS, Abdominal FLA LOS N/A Computed Tomography Impressions 11/14/2023 2:16 PM CDT 1. Interval removal of the right double-J nephroureteral stent with recurrent moderate to severe right hydroureteronephrosis. 2. Interval placement of a left percutaneous nephrostomy tube. 3. Small amount of hyperdense material within the urinary bladder, likely representing blood products. 4. Focal wall thickening along the right bladder base near the ureterovesicular junction which is unchanged compared with multiple prior exams. Narrative 11/14/2023 2:16 PM CDT EXAM: CT ABDOMEN PELVIS WITHOUT IV CONTRAST COMPARISON: CT of the abdomen and pelvis without IV contrast from 08/22/2023. FINDINGS: Interval removal of the right nephroureteral stent with recurrent severe right hydroureteronephrosis. Diffuse cortical atrophy of the right kidney. Interval postprocedural changes of left percutaneous nephrostomy tube. Small amount of hyperdense material within the urinary bladder. Tabares catheter. Focal wall thickening along the base of the urinary bladder near the right ureterovesicular junction which is not significantly changed compared with multiple prior exams. Diffuse atrophy of pancreas. The liver, spleen, pancreas and adrenal glands are otherwise normal. Scattered colonic diverticulosis. Normal caliber large and small bowel. Postradiation changes in the sacrum. Right ARTURO. Dependent atelectasis in both lung bases. Scattered calcified atherosclerotic disease with coronary artery calcifications. IVC filter. Procedure Note Marquis Aquino M.D. - 11/14/2023 EXAM: CT ABDOMEN PELVIS WITHOUT IV CONTRAST COMPARISON: CT of the abdomen and pelvis without IV contrast from08/22/2023. FINDINGS: Interval removal of the right nephroureteral stent withrecurrent severe right hydroureteronephrosis. Diffuse cortical atrophy ofthe right kidney. Interval postprocedural changes of left percutaneousnephrostomy tube. Small amount of hyperdense material within the urinary bladder. Tabares catheter. Focal wallthickening along the base of the urinary bladder near the rightureterovesicular junction which is not significantly changed compared withmultiple prior exams. Diffuse atrophy of pancreas. The liver, spleen, pancreas and adrenalglands are otherwise normal. Scattered colonic diverticulosis. Normalcaliber large and small bowel. Postradiation changes in the sacrum. RightTHA. Dependent atelectasis in both lung bases. Scattered calcified atherosclerotic disease with coronary arterycalcifications. IVC filter. IMPRESSION: 1. Interval removal of the right double-J nephroureteral stent withrecurrent moderate to severe right hydroureteronephrosis. 2. Interval placement of a left percutaneous nephrostomy tube. 3. Small amount of hyperdense material within the urinary bladder, likelyrepresenting blood products. 4. Focal wall thickening along the right bladder base near theureterovesicular junction which is unchanged compared with multiple priorexams. Sergio Raza M.D. IMG CT PROCEDURES * Blood Bank Hold Sample (11/14/2023 11:09 AM CDT) Pathologist [facility] Blood Bank Hold Sample HOLD Confirmed 11/14/2023 11:31 AM CDT NPRG Blood (Blood, Venous) 11/14/2023 11:09 AM CDT 11/14/2023 11:12 AM CDT Sergio Raza M.D. LAB BLOOD BANK TEST ORDERABLES [facility] [address] [place] [address], [place] NPRG [facility] [address] [place] [address] * Basic Metabolic Panel (11/14/2023 11:09 AM CDT) Only the most recent of13 resultswithin the time period is included. Potassium, P 4.6 3.6 - 5.2 mmol/L 11/14/2023 11:30 AM CDT NPRG Sodium, P 139 135 - 145 mmol/L 11/14/2023 11:30 AM CDT NPRG Chloride, P 106 98 - 107 mmol/L 11/14/2023 11:30 AM CDT NPRG Bicarbonate, P 24 22 - 29 mmol/L 11/14/2023 11:30 AM CDT NPRG Anion Gap, P 9 7 - 15 11/14/2023 11:30 AM CDT NPRG BUN (Blood Urea Nitrogen), P 24 8 - 24 mg/dL 11/14/2023 11:30 AM CDT NPRG Creatinine 1.12 0.74 - 1.35 mg/dL 11/14/2023 11:30 AM CDT NPRG Estimated GFR (eGFR) 65 >=60 mL/min/BSA 11/14/2023 11:30 AM CDT NPRG Comment: Estimated GFR calculated using the 2020 CKD_EPI creatinine equation. Calcium, Total, P 9.1 8.8 - 10.2 mg/dL 11/14/2023 11:30 AM CDT NPRG Glucose, P 110 70 - 140 mg/dL 11/14/2023 11:30 AM CDT NPRG Blood (Blood, Venous) 11/14/2023 11:09 AM CDT 11/14/2023 11:12 AM CDT Sergio Raza M.D. LAB BLOOD ADD-ON [facility] [address] [place] [address], [facility] NPRG [facility] [address] [place] [address] * (ABNORMAL) CBC without Differential (09/15/2023 3:37 [...] M.D. LAB BLOOD ADD-ON [facility] [address] [place] [address], [place] [facility] [address] [place] [address] * Heparin Anti-Xa Assay (09/14/2023 3:19 AM [...] LAB BLOOD NON ADD-ON Performing Organization Address City/State/[facility] Co de Phone Number [place] [address] DTL [facility] [address] [place] [address] * IR Nephrostomy Tube Placement Left (09/13/2023 2:20 PM CDT) Anatomical Region Laterality Modality Genito Urinary, Vascular Int erventional RST LOS, Vascular Interventional ARZ LOS, Vascular Interventional FLA LOS Left X-Ray Angiography Impressions 09/13/2023 2:33 PM CDT Left 10 Chadian percutaneous nephrostomy tube placement. EP Narrative 09/13/2023 [...] tract was further dilated and a 10 Chadian nephrostomy tube was placed with loop formed [...] sedation timewas: 9 minutes. IMPRESSION: Left 10 Chadian percutaneous nephrostomy tube placement. EP Latisha Whitehead [...] [facility] [address] [place] [address], [facility] [address] [place] [address] * Gram Stain (09/13/2023 2:17 PM CDT) Gram Stain No organisms seen. White blood cells, Rare 09/13/2023 9:02 PM CDT DT Fluid (Kidney, Left) 09/13/2023 2:17 PM CDT 09/13/2023 3:56 PM CDT Comment:Specimen Source Site : Fluid Latisha Whitehead M.D. LAB MICROBIOLOGY - GENERAL ORDERABLES Performing Organization Address City/[facility]/ZIP Co de Phone Number [facility] [place] [address] [place] [address], [facility] 200 [place] [address] * Fungal Culture, Routine (09/13/2023 2:17 PM CDT) Fungal Culture, Routine No growth after 24 days of incubation. 10/08/2023 1:02 AM CDT DTL Fluid (Kidney, Left) 09/13/2023 2:17 PM CDT 09/13/2023 3:56 PM CDT Comment:Specimen Source Site : Fluid Latisha Whitehead M.D. LAB MICROBIOLOGY - GENERAL ORDERABLES Performing Organization Address City/[facility] Co de Phone Number [facility] [place] [address] [place], [place] [address] [place] [address] 200 [place] [address] * Bacterial Culture, Anaerobic + Susceptibility (09/13/2023 2:17 PM CDT) Bacterial Culture, Anaerobic + Susc No growth after 14 days of incubation. 09/27/2023 8:04 AM CDT DTL Fluid (Kidney, Left) 09/13/2023 2:17 PM CDT 09/13/2023 3:56 PM CDT Comment:Specimen Source Site : Fluid Latisha Whitehead M.D. LAB MICROBIOLOGY - GENERAL ORDERABLES Performing Organization Address City/[facility]/ZIP Co de Phone Number [facility] [place] [address] [place] [address], [facility] [address] [place] [address] * APTT (Activated Partial Thromboplastin Time) (09/13/2023 5:56 AM CDT) Only the most recent of18 resultswithin the time period is included. Activated Partial Thrombopl Time, P 35 25 - 37 sec 09/13/2023 7:14 AM CDT DTL Blood (Blood, Venous) 09/13/2023 5:56 AM CDT 09/13/2023 6:53 AM CDT Sumit Holbrook M.D. LAB BLOOD ADD-ON [facility] [place] [address] [place] [address], [facility] DTL [facility] [address] [place] [address] * NM Kidney DMSA (09/12/2023 12:21 PM [...] 11:12 AM CDT) Only the most recent of8 resultswithin the time period is included. Paula [...] of the urinary catheter.No internal vascularity. Js J Trey M.D. IMG US PROCEDURES * Coccyx-Nursing Image [...] RAD IMAGI NG PROCEDURES Performing Organization Address City/[facility]/ZIP Co de Phone Number IIDE NA * Osmolality, Urine (09/09/2023 11:28 AM CDT) Osmolality, U 380 150 - 1150 mOsm/kg 09/09/2023 12:19 PM CDT DTL Urine 09/09/2023 11:2 8 AM CDT 09/09/2023 11:58 AM CDT Jeffery Church M.D. LAB URINE ORDERA BLES Performing Organization Address City/[facility]/ZIP Co de Phone Number [facility] [place] [address] [place] [address], [facility] DTL [facility] [address] [place] [address] * (ABNORMAL) Dipstick, Urine (09/09/2023 11:28 AM [...] LAB URINE ORDERA BLES Performing Organization Address [facility] Co de Phone Number [facility] [place] [address] [place] [address] * pH, Random, Urine (09/09/2023 11:28 AM CDT) pH, Random, U 6.3 4.5 - 8.0 09/09/2023 12:19 PM CDT DTL Urine 09/09/2023 11:2 8 AM CDT 09/09/2023 11:58 AM CDT Jeffery Church M.D. LAB URINE ORDERA BLES Performing Organization Address [facility] de Phone Number [facility] [place] [address] [place] [address] * (ABNORMAL) Microscopic Manual (09/09/2023 11:28 AM [...] LAB URINE ORDERA BLES Performing Organization Address City/[facility] Co de Phone Number [facility] [address] [place] [address], [facility] DTL [facility] [address] [place] [address] * (ABNORMAL) Bacterial Culture, Aerobic + Susceptibility, Urine (09/09/2023 11:28 AM CDT) Only the most recent of2 resultswithin the time period is included. Urine [...] MICROBIOLOGY - GENERAL ORDERABLES Performing Organization Address [facility] Co de Phone Number [facility] [place] [address] [place] [address], [facility] [address] [address] * (ABNORMAL) Gram Stain, Urine (09/09/2023 11:28 AM CDT) Source Urine, Urine, Straight Catheter 09/09/2023 11:58 AM CDT DTL Gram Stain, U Positive(A) Negative 09/09/2023 12:16 PM CDT DTL Comment: Few Gram-negative bacilli ? Yeast Urine 09/09/2023 11:2 8 AM CDT 09/09/2023 11:58 AM CDT Jeffery Church M.D. LAB URINE ORDERA BLES Performing Organization Address [facility] de Phone Number [facility] [place] [address] [place] [address], [facility] [address] [place] [address] * (ABNORMAL) Urinalysis, with Microscopic: Urine, Straight [...] 09/09/2023 1:02 PM CDT DTL Predicted Range 2480-82113 mg/24 h 09/09/2023 1:02 PM CDT DTL Comment Micro done on <2.5 mL 09/09/2023 12:27 PM CDT DTL Urine (Urine, Straight Catheter) 09/09/2023 11:28 AM CDT 09/09/2023 11:58 AM CDT Jeffery Church M.D. LAB URINE ORDERA BLES [facility] [place] [address] [place] [address], [facility] [address] [place] [address] * US Kidneys Bilateral with Bladder (09/09/2023 [...] - 12.5 sec 09/09/2023 8:14 AM CDT [facility] 1.1 0.9 - 1.1 09/09/2023 8:14 AM CDT [facility] Comment: ----ADDITIONAL INFORMATION---- Standard intensity warfarin therapeutic range: 2.0 to 3.0 ?? High intensity warfarin therapeutic range: 2.5 to 3.5 Blood (Blood, Venous) 09/09/2023 8:04 AM CDT 09/09/2023 8:08 AM CDT Jeffery Church M.D. LAB BLOOD ADD-ON [place] [address] [place] [address], [place] STMA [facility] [address] [place] [address] * Type and Screen (with Reflex Antibody ID) (09/09/2023 8:03 AM CDT) Only the most recent of5 resultswithin the time period is included. Pathologist [facility] ABORh O Pos Not applicable 09/09/2023 8:47 AM CDT STRM Antibody Screen Negative Negative 09/09/2023 9:02 AM CDT STRM Type & Screen Expiration 09/12/2023 23:59 09/09/2023 8:47 AM CDT STRM Testing Location [place] DEFAULT 09/09/2023 8:10 AM CDT STRM Blood (Blood, Venous) 09/09/2023 8:03 AM CDT 09/09/2023 8:10 AM CDT Jeffery Church M.D. LAB BLOOD BANK T EST ORDERABLES [facility] [place] [address] [place], [place] [id number] [place] [address] 200 [place] [address] * Potassium (09/05/2023 4:56 AM CDT) Only the most recent of2 resultswithin the time period is included. Pathologist [facility] Potassium, S 3.6 3.6 - 5.2 mmol/L 09/05/2023 5:49 AM CDT DTL Blood (Blood, Venous) 09/05/2023 4:56 AM CDT 09/05/2023 5:22 AM CDT Roxy Romero M.D. LAB BLOOD ADD-ON [facility] [place] [address] DTL [facility] [address] [place] [address] * FL Fluoro Less Than 1 Hour [...] in the bladder lumen. Paula Hernandez M.D. [facility] PROCEDURES * (ABNORMAL) Hemoglobin (08/31/2023 4:21 AM CDT) Pathologist [facility] Hemoglobin 7.8(L) 13.2 - 16.6 g/dL 08/31/2023 4:47 AM CDT DTL Blood (Blood, Venous) 08/31/2023 4:21 AM CDT 08/31/2023 4:35 AM CDT Kimi Vieira M.D., M.S. LAB BLOO D ADD-ON [facility] [place] [address] [place] [address], [facility] [address] [place] [address] * Lactate (08/30/2023 9:50 PM CDT) [facility] Lactate, P 1.8 0.5 - 2.2 mmol/L 08/30/2023 10:09 PM CDT STM Blood (Blood, Venous) 08/30/2023 9:50 PM CDT 08/30/2023 9:55 PM CDT Shannan Correa D.O., M.H.A. LAB BLOOD NON ADD-ON [facility] [place] [address] [place] [address], [facility] [address] [place] [address] * DX Chest AP or PA and [...] D.O., M.H.A. IMG DIAGNOSTIC IMAGING PROCEDURES * IR PICC Line Removal (08/26/2023 11:50 [...] Address City/[facility]/[place] [address] * Magnesium (08/26/2023 3:20 AM CDT) Only the most recent of5 resultswithin the time period is included. Magnesium, S 2.1 1.7 - 2.3 mg/dL 08/26/2023 4:04 AM CDT DTL Blood (Blood, Venous) 08/26/2023 3:20 AM CDT 08/26/2023 3:50 AM CDT Boubacar Brock M.D. LAB BLOOD ADD-ON Performing Organization Address City/[facility]/ZIP Co de Phone Number [facility] [place] [address] [place] [address] * (ABNORMAL) Phosphorus Inorganic (08/23/2023 9:58 PM CDT) Only the most recent of2 resultswithin the time period is included. Phosphorus (Inorganic), S 2.1(L) 2.5 - 4.5 mg/dL 08/23/2023 10:45 PM CDT DTL Blood (Blood, Venous) 08/23/2023 9:58 PM CDT 08/23/2023 10:30 PM CDT Paula Hernandez M.D. LAB BLOOD ADD-ON [facility] [place] [address] [place] [address], [facility] [address] [place] [address] * Triglycerides (08/23/2023 3:42 AM CDT) Only [...] Address City/[facility]/ZIP Co de Phone Number [facility] [place] [address] [place] [address], [facility] [address] [place] [address] * Glucose, POCT (08/22/2023 11:38 PM CDT) Glucose, POCT, B 117 70 - 140 mg/dL 08/23/2023 1:06 AM CDT PCLX Site Capillary 08/23/2023 1:06 AM CDT PCLX Last Intake NPO 08/23/2023 1:06 AM CDT PCLX Blood 08/22/2023 11:3 8 PM CDT 08/23/2023 1:06 AM CDT Unknown Provider LAB POCT ORDERABLES- MANUAL Performing Organization Address City/[facility] Co de Phone Number POC [facility] [address] [place] [address], [facility] PCLX [facility] POC [address] [place] [address] * Creatinine, Body Fluid (08/22/2023 3:30 PM [...] transport rates. All other fluids refer to [email or web address] for further interpretive information. This test has been modified from the construction helper's instructions. Its performance characteristics were determined [...] FLUIDS AND STOOLS ORDERABLES Performing Organization Address City/[facility]/ZIP Co de Phone Number [facility] [address] [place] [address], [facility] DTL [facility] [address] [place] [address] * IR PICC Line Placement (08/22/2023 8:35 AM CDT) Anatomical Region Laterality Modality Chest, Pelvis, Abdomen, Vasc ular Interventional RST LOS, Vascular Interventional ARZ LOS, Vascular Interventional FLA LOS N/A X-Ray Angiography Impressions 08/22/2023 9:05 AM CDT Placement of a right IJ vein single-lumen 4 Chadian tunneled PowerPICC ready for immediate use. NR [...] advanced into the IVC and a 4 Chadian dilator advanced over the wire and attached to a one-way stopcock. A suitable exit site in the right anterior chest was anesthetized and a small incision made. A 4 Chadian single-lumen PowerPICC was then tunneled from the [...] discussed. Procedure Note Joni Cerna M.D. - 05/13/2024 EXAM: IR PICC LINE PLACEMENT CLINICAL HISTORY: [...] Wireadvanced into the IVC and a 4 Chadian dilator advanced over the wire andattached to a one-way stopcock. A suitable exit site in the right anteriorchest was anesthetized and a small incision made. A 4 Chadian single-lumen PowerPICC was then tunneled fromthe skin [...] of a right IJ vein single-lumen 4 Chadian tunneled PowerPICCready for immediate use. NR Kimi A Pougnier M.D., M.S. IMG IR P ROCEDLANNY * Place peripherally inserted central catheter (PICC) [...] atrophic right kidney. Lizette Harvey M.D. [facility] PROCEDUR ES * US Lower Extremity [...] and management can be found on the [employer] site. Link [email or web address]/topic/clinical-answers/[email or web address]/[email or web address] 24093 Findings discussed with ??Tayler Greenwood, ?? ([id number]) on 08/17/2023 7:11 PM. Procedure Note Jj [...] be found on theAskMayoExpert site. [email or web address]/topic/[email or web address]-answers/[email or web address] -[email or web address] 1725 Findings discussed with Tayler Greenwood MD ([id number]) on 08/17/2023 7:11 PM. IMPRESSION: 1. Aging, [...] Address City/[facility]/ZIP Co de Phone Number [facility] [place] [address] [place] [address] * Patient Status (08/15/2023 11:56 AM CDT) Only the most recent of2 resultswithin the time period is included. Temperature 36.2 37.0 deg C 08/15/2023 12:04 PM CDT STMA Blood 08/15/2023 11:5 6 AM CDT 08/15/2023 12:03 PM CDT Rae Gonzalez CARD CHECKER, BUTTER MAKER, DNAP LAB BLOO D NON ADD-ON Performing Organization Address City/[facility]/ZIP Co de Phone Number [facility] [place] [address] [place] [address], [place] [address] * Sodium, B (08/15/2023 11:56 AM CDT) Only the most recent of2 resultswithin the time period is included. Sodium, B 135 135 - 145 mmol/L 08/15/2023 12:06 PM CDT STMA Blood (Blood, Arterial Line) 08/15/2023 11:56 AM CDT 08/15/2023 12:03 PM CDT Hayde Song M.D. LAB BLOOD NON ADD-O N [facility] [place] [address] [place] [address], [facility] STMA [facility] [address] [place] [address] * (ABNORMAL) Blood Gas with Coox, Arterial [...] Address City/[facility]/ZIP Co de Phone Number [facility] [place] [address] [place] [address], [facility] [address] [place] [address] * Potassium, Blood (08/15/2023 11:56 AM CDT) Only the most recent of2 resultswithin the time period is included. Potassium, B 4.3 3.6 - 5.2 mmol/L 08/15/2023 12:07 PM CDT [facility] Blood (Blood, Arterial Line) 08/15/2023 11:56 AM CDT 08/15/2023 12:03 PM CDT Hayde Song M.D. LAB BLOOD NON ADD-O N Performing Organization Address City/[facility] Co de Phone Number [facility] [place] [address] [place] [address], [facility] [address] [place] [address] * (ABNORMAL) Glucose, Whole Blood (08/15/2023 11:56 AM CDT) Only the most recent of2 resultswithin the time period is included. Pathologist [facility] Glucose 144(H) 70 - 140 mg/dL 08/15/2023 12:06 PM CDT [facility] Blood (Blood, Arterial Line) 08/15/2023 11:56 AM CDT 08/15/2023 12:03 PM CDT Hayde Song M.D. LAB BLOOD ADD-ON Performing Organization Address City/[facility] Co de Phone Number [facility] [place] [address] [place] [address], [facility] [address] [place] [address] * (ABNORMAL) Calcium, Ionized (08/15/2023 11:56 AM [...] [facility] [place] [address] [place] [address], [facility] [address] [place] [address] * LA ARTL CATH/CNULA MONITOR PERC, LA US GUIDE VASC ACCESS, LDA ANE ARTERIAL LINE INSERTION, MC ANE INVASIVE CATH WITH ULTRASOUND (08/15/2023 9:51 AM CDT) Narrative Rae Gonzalez APRN, CRNA DNAP - 08/15/2023 9:51 AM CDT Rae Gonzalez APRN, CRNA, DNAJay ? 08/15/2023 ??9:52 AM Invasive Catheter [...] ETT location: oral VL device: glide scope [place] scope blade size: 4 Tube size: 7.5 [...] 3:33 AM CDT) Only the most recent of2 resultswithin the time period is included. Bacteria/Leyla da Culture, Blood No growth after 5 days of incubation. 08/20/2023 6:02 AM CDT DTL Blood (Blood, Peripheral Draw) 08/15/2023 3:33 AM CDT 08/15/2023 5:58 AM CDT Comment:Specimen Source Site : Blood Narrative [facility] - 08/20/2023 6:02 AM CDT Received Bactec aerobic and Bactec anaerobic bottles Carlos Alberto Henson M.D. LAB MICROBIOLOGY - [facility] ORDERABLES [facility] [address] [place] [address], [place] DTL [facility] [address] [place] [address] from Last 3 Months Advance Directives For more information, please contact: [phone] * Full Code (Latest Code Status on File) Date Activated Date Inactivated Comments 11/15/2023 12:25 AM Question Answer Comments Full Code: Discussed * Full Code Date Activated Date Inactivated Comments 08/30/2023 10:40 PM 09/05/2023 6:15 PM Question Answer Comments Full Code: Not Discussed Due to: Patient not available * Full Code Date Activated Date Inactivated Comments 08/13/2023 4:30 PM 08/26/2023 6:58 PM Question Answer Comments Full Code: Discussed Care Teams Tire Regrooving Machine Operator Relationship Specialty Start Date End Date Elsewhere, Pcp PCP - General Internal Medicine 08/13/23
--- OUTSIDE RECORDS SUMMARY | 2023-11-15 11:53 | XMS_ITS | Encounter Summary ---
Author Organization [facility] Address [address] [place] [address] Care Team Providers Care Section Beamer Name Role Phone Elsewhere, Pcp Primary Care Provider Unavailabl e Encounter Details Date Type Department Care Team (Late st Contact Info) Description 11/14/2023 Documentation Department of Urology in [place], [place] [address] [place] [phone] Sowmya Aviles, ARUN, C.N.P., M.S.N. [address] [place] [phone] Social History Tobacco Use Types Packs/Day Years Used Date Smoking Tobacco: Never Smokeless Tobacco: Never [facility] Utilities Answer Date Recorded In [...] a [facility] place to live 11/15/2023 Sex and Gender Information Value Date Recorded Sex Assigned at Not on file Gender Identity Not on file Sexual Orientation Not on file documented as of this encounter Plan of Treatment Upcoming Encounters Date Type Department Care Team (Latest Contact Info) Description 12/07/2023 10:15 AM CDT Procedure visit Department of Urology in [address] [phone] Burke Strauss M.D. [address] [place] [phone] Discharge Disposition: Home or Self Care 12/07/2023 10:30 AM CDT Office Visit Department of Urology in [place] [address] [place] [phone] Burke Strauss M.D. [address] [place] [phone] Discharge Disposition: Home or Self Care documented as of this encounter Visit Diagnoses Not on filedocumented in this encounter Care Teams Section Beamer Relationship Specialty Start Date End Date Elsewhere, Pcp PCP - General Internal Medicine 08/13/23 documented as of this encounter
--- OUTSIDE RECORDS SUMMARY | 2023-11-15 11:53 | XMS_ITS | Encounter Summary ---
Author Organization [facility] Address [address] [place] [address] Care Team Providers Care Hiv Prevention Specialist Name Role Phone Elsewhere, Pcp Primary Care Provider Unavailabl e Reason for Visit * Reason Onset Date Comments Oncology records request 11/10/2023 Encounter Details Date Type Department Care Team (Latest Contact Info) Description 11/10/2023 Clinical Communication Department of Urology in [place], [place] [address] [place] [phone] Burke Strauss M.D. [address] [place] [phone] Oncology records request Social History Tobacco Use Types Packs/Day Years Used Date Smoking Tobacco: Never Smokeless Tobacco: Never [facility] Utilities Answer Date Recorded In the past 12 months has [facility] electric, gas, oil, or water company [...] a [facility] place to live 09/09/2023 Sex and Gender Information Value Date Recorded Sex Assigned at Not on file Gender Identity Not on file Sexual Orientation Not on file documented as of this encounter Miscellaneous Notes * Telephone Encounter - Gisela Lloyd, R.M.A. - 11/10/2023 2:15 PM CDT Release of Information was filled out and faxed to [facility], Dr. Mireya Tan clinic per Dr. Strauss. Will wait for these to come through and notify Dr. Strauss for his review. [facility] documented in this encounter Plan of Treatment Upcoming Encounters Date Type Department Care Team (Latest Contact Info) Description 12/07/2023 10:15 AM CDT Procedure visit Department of Urology in [place], [place] [address] [place] [phone] Burke Strauss M.D. [address] [place] [phone] Discharge Disposition: Home or Self Care 12/07/2023 10:30 AM CDT Office Visit Department of Urology in [place], [place] [address] [place] [phone] Burke Strauss M.D. [address] [place] [phone] Discharge Disposition: Home or Self Care documented as of this encounter Visit Diagnoses Not on filedocumented in this encounter Care Teams Hiv Prevention Specialist Relationship Specialty Start Date End Date Elsewhere, Pcp PCP - General Internal Medicine 08/13/23 documented as of this encounter
--- OUTSIDE RECORDS SUMMARY | 2023-11-15 11:53 | XMS_ITS | Encounter Summary ---
Author Organization [facility] Address [address] [place] [address] Care Team Providers Care Log Hauler Name Role Phone Elsewhere, Pcp Primary Care Provider Unavailabl e Reason for Visit * Reason Comments Urinary Catheter Change 83 yo presents f or eval of plugged urinary catheter. Reports no output since sometime overnight. Urine leaking from penis. Urine in bag grossly bloody. Encounter Details Date Type Department Care Team ([facility] st Contact Info) Description 11/14/2023 10:44 AM CDT - 11/14/2023 10:23 PM CDT Emergency [place] [address] [place] [phone] Sergio Raza M.D. [address] [place] [phone] Hematuria (Primary Dx); Malfunction Mechanical Urethral Catheter Initial (HCC) Discharge Disposition: Acute Care Hospital Social History Tobacco Use Types Packs/Day Years Used Date Smoking Tobacco: Never Smokeless Tobacco: Never [facility] Utilities Answer Date Recorded In the [...] [facility] a [facility] live 11/15/2023 Sex and Gender Information Value Date Recorded Sex Assigned at Not on file Gender Identity Not on file Sexual Orientation Not on file documented as of this encounter Last Filed Vital Signs Vital Sign Reading Time Taken Comments Blood Pressure 135/64 11/14/2023 9:45 PM CDT Pulse 75 11/14/2023 10:15 PM CDT Temperature 37.2 ??C (99 ??F) 11/14/2023 6:58 PM CDT Respiratory Rate - - Oxygen Saturation 97% 11/14/2023 10:15 PM CDT Inhaled Oxygen Concentration - - Weight 81.2 kg (179 lb) 11/14/2023 10:48 AM CDT Height 177.8 cm (5' 10) 11/14/2023 10:48 AM CDT Body Mass Index 25.68 11/14/2023 10:48 AM CDT documented in this encounter Medications at Time [...] MG) BY MOUTH DAILY 30 capsule 06/10/2020 Xarelto 10 mg tablet Take 10 mg by mouth every morning. nitroglycerin (NITROSTAT) 0.[address] 0.4 mg under the tongue every 5 (five) minutes as needed for chest pain. If chest pain continues after 5 minutes, take the second dose and call 911 11/02/2019 trospium (SANCTURA) 20 mg tablet Take 1 tablet (20 mg total) by mouth 2 (two) times a day as needed (bladder spasms). please stop 24 hours prior to catheter removal 20 tablet 08/26/2023 documented as of this encounter Plan of Treatment Upcoming Encounters Date Type Department Care Team (Latest Contact Info) Description 12/07/2023 10:15 AM CDT Procedure visit Department of Urology in [place], [place] [address] [place] [phone] Burke Strauss M.D. [address] [place] [phone] Discharge Disposition: Home or Self Care 12/07/2023 10:30 AM CDT Office Visit Department of Urology in [place], [place] [address] [place] [phone] Burke Strauss M.D. [address] [place] [phone] Discharge Disposition: Home or Self Care Pending Results Name Type Priority Associated Diagnoses Date /Time Type and Screen (with Reflex Antibody ID) Lab Routine 11/14/2023 1 1:09 AM CDT Scheduled Orders Name Type Priority Associated Diagnoses Orde r Schedule Type and Screen (with Reflex Antibody ID) Lab Routine Routine lab collection (next collection) for 1 Occurrences starting 11/15/2023 until 11/15/2023 documented as of this encounter Procedures Procedure Name Priority Date/Time Associated Diagnosis Comments TESTING LOCATION Routine 11/15/2023 11:[address] ABDOMEN PELVIS WITHOUT IV CONTRAST RAD - Semiurgent (Fast; most ED patients; some inpatients) 11/14/2023 2:07 PM CDT BLOOD BANK HOLD SAMPLE Routine 11/14/2023 11:09 AM CDT CBC WITH DIFFERENTIAL, B STAT 11/14/2023 11:09 AM CDT BASIC METABOLIC PANEL, S/P STAT 11/14/2023 11:09 AM CDT documented in this encounter Results * Testing Location (11/15/2023 11:09 AM CDT) Testing Location [facility] DEFAULT 11/15/2023 11:47 AM CDT [facility] Blood 11/15/2023 11:0 9 AM CDT 11/15/2023 11:47 AM CDT Sergio Raza M.D. LAB BLOOD BANK TEST ORDERABLES Performing Organization Address City/State/[facility] Co de Phone Number [facility] [address] [place] [address], [facility] MKTO [facility] [place] [address] [place] [address] * CT Abdomen Pelvis without IV Contrast (11/14/2023 2:07 PM CDT) Anatomical Region Laterality Modality Abdomen, [...] Bank Hold Sample (11/14/2023 11:09 AM CDT) Blood Bank Hold Sample HOLD Confirmed 11/14/2023 11:31 AM CDT [facility] Blood (Blood, Venous) 11/14/2023 11:09 AM CDT 11/14/2023 11:12 AM CDT Sergio Raza M.D. LAB BLOOD BANK TEST ORDERABLES [facility] [address] [place] [address], [facility] NPRG [facility] [address] [place] [address] * (ABNORMAL) CBC with Differential, Blood (11/14/2023 11:09 AM CDT) Hemoglobin 8.2(L) 13.2 - 16.6 g/dL 11/14/2023 11:17 AM CDT [facility] Hematocrit 27.1(L) 38.3 - 48.6 % 11/14/2023 11:17 AM CDT [facility] Erythrocytes 2.84(L) 4.35 - 5.65 x10(12)/L 11/14/2023 11:17 AM CDT [facility] MCV 95.4 78.2 - 97.9 fL 11/14/2023 11:17 AM CDT [facility] RBC Distrib Width 17.0(H) 11.8 - 14.5 % 11/14/2023 11:17 AM CDT [facility] Platelet Count 374(H) 135 - 317 x10(9)/L 11/14/2023 11:17 AM CDT [facility] Leukocytes 7.3 3.4 - 9.6 x10(9)/L 11/14/2023 11:17 AM CDT [facility] Neutrophils 6.24 1.56 - 6.45 x10(9)/L 11/14/2023 11:17 AM CDT [facility] Lymphocytes 0.43(L) 0.95 - 3.07 x10(9)/L 11/14/2023 11:17 AM CDT [facility] Monocytes 0.52 0.26 - 0.81 x10(9)/L 11/14/2023 11:17 AM CDT [facility] Eosinophils 0.12 0.03 - 0.48 x10(9)/L 11/14/2023 11:17 AM CDT [facility] Basophils <0.04 0.01 - 0.08 x10(9)/L 11/14/2023 11:17 AM CDT [facility] Blood (Blood, Venous) 11/14/2023 11:09 AM CDT 11/14/2023 11:12 AM CDT Sergio Raza M.D. LAB BLOOD ADD-ON [facility] [address] [place] [address], [place] NPRG [place] [address] [address] [place] [address] * Basic Metabolic Panel (11/14/2023 11:09 AM CDT) Potassium, P 4.6 3.6 - 5.2 mmol/L [...] CDT Sergio Raza M.D. LAB BLOOD ADD-ON [facility] [address] [place] [address], [facility] NPR[facility] [place] [address] [place] [address] documented in this encounter Visit Diagnoses Diagnosis Hematuria- Primary Malfunction Mechanical Urethral Catheter Initial (HCC) documented in this encounter Administered Medications Inactive Administered Medications - up to 3 most recent administrations Medication Order MAR Action Action Date Dose Rate Site acetaminophen tablet 1,000 mg (TylenoL) 1,000 mg, oral, Once, On Tue11/14/23 at 2045, For 1 dose Given 11/14/2023 8:56 PM CDT 1,000 mg lidocaine HCL 2 % topical jelly 1 Application (Glydo) 1 Application, urethral, Once, On Tue11/14/23 at 1209, For 1 dose, Urinary System Administration: Surface anesthesia for pediatric urethra: 0.2 mL/kg (maximum 5 mL for females, maximum 15 mL for males) Surface anesthesia of male urethra: 300 mg (15 mL) instilled into urethra or until patient has feeling of tension; may administer another dose of not more than 300 mg (15 mL) for adequate anesthesia. Prior to sounding or cystoscopy, a total dose of 600 mg (30 mL) is usually required. Prior to catheterization, a smaller dose of 100 to 200 mg (5 to 10 mL) is usually sufficient. MAX 600 mg per 12-hour period. Surface anesthesia of female urethra: 60 to 100 mg (3 to 5 mL) instilled into urethra; if desired, additional jelly may be applied with a cotton swab. MAX 600 mg per 12-hour period. Given 11/14/2023 12:30 PM CDT 1 Application NaCl 0.9 % irrigation solution 3,000 mL 3,000 mL, irrigation, Continuous, Starting on Tue11/14/23 at 1101, FOR BLADDER IRRIGATION ONLY, NOT FOR IV USE New Bag 11/14/2023 2:00 PM CDT 3,000 mL NaCl 0.9 % irrigation solution 3,000 mL 3,000 mL, irrigation, Continuous, Starting on Tue11/14/23 at 1101, FOR BLADDER IRRIGATION ONLY, NOT FOR IV USE New Bag 11/14/2023 8:57 PM CDT 3,000 mL New Bag 11/14/2023 2:00 PM CDT 3,000 mL New Bag 11/14/2023 12:35 PM CDT 3,000 mL NaCl 0.9 % irrigation solution 3,000 mL 3,000 mL, irrigation, Once, On Tue11/14/23 at 1959, For 1 dose Given 11/14/2023 7:59 PM CDT 3,000 mL sodium chloride 0.9 % injection 2-10 mL 2-10 mL, intravenous, As needed, line care, Starting on Tue11/14/23 at 1059 documented in this encounter Active and Recently Administered Medications Times are shown in CDT. Scheduled Medication Order 11/12/2023 11/13/2023 11/14/2023 acetaminophen tablet 1,000 mg (TylenoL) (COMPLETED) 1,000 mg, oral, Once, On Tue11/14/23 at 2045, For 1 dose 2055 (Given - Provid er: Bety Richard R.N.) lidocaine HCL 2 % topical jelly 1 Application (Glydo) (COMPLETED) 1 Application, urethral, Once, On Tue11/14/23 at 1209, For 1 dose, Urinary System Administration: Surface anesthesia for pediatric urethra: 0.2 mL/kg (maximum 5 mL for females, maximum 15 mL for males) Surface anesthesia of male urethra: 300 mg (15 mL) instilled into urethra or until patient has feeling of tension; may administer another dose of not more than 300 mg (15 mL) for adequate anesthesia. Prior to sounding or cystoscopy, a total dose of 600 mg (30 mL) is usually required. Prior to catheterization, a smaller dose of 100 to 200 mg (5 to 10 mL) is usually sufficient. MAX 600 mg per 12-hour period. Surface anesthesia of female urethra: 60 to 100 mg (3 to 5 mL) instilled into urethra; if desired, additional jelly may be applied with a cotton swab. MAX 600 mg per 12-hour period. 1230 (Given - Provid er: Faith Fish R.N.) NaCl 0.9 % irrigation solution 3,000 mL (COMPLETED) 3,000 mL, irrigation, Once, On Tue11/14/23 at 1959, For 1 dose 1958 (Given - Provid er: Bety Richard R.N.) Continuous Medication Order 11/12/2023 11/13/2023 11/14/2023 NaCl 0.9 % irrigation solution 3,000 mL 3,000 mL, irrigation, Continuous, Starting on Tue11/14/23 at 1101, FOR BLADDER IRRIGATION ONLY, NOT FOR IV USE 1400 (New Bag - Prov ider: Faith Fish R.N.)1957 (Stopped - Provider: Faith Fish R.N.)2230 (Continue to External Healthcare Facility - Provider: Bety Richard R.N.) NaCl 0.9 % irrigation solution 3,000 mL 3,000 mL, irrigation, Continuous, Starting on Tue11/14/23 at 1101, FOR BLADDER IRRIGATION ONLY, NOT FOR IV USE 1235 (New Bag - Prov ider: Faith Fish R.N.)1400 (New Bag - Provider: Faith Fish R.N.)1400 (Stopped - Provider: Faith Fish R.N.)2057 (New Bag - Provider: Bety Richard R.N.)2230 (Continue to External Healthcare Facility - Provider: Bety Richard R.N.) PRN Medication Order 11/12/2023 11/13/2023 11/14/2023 sodium chloride 0.9 % injection 2-10 mL(Linked Group 1) 2-10 mL, intravenous, As needed, line care, Starting on Tue11/14/23 at 1059 Linked Groups Order Group 1: Place peripheral IV: No upper extremity site restrictions (CANCELED) Upper extremity site restriction: No upper extremity site restrictions, Quantity of PIVs requested: One, STAT, Once, On Tue11/14/23 at 1100, For 1 occurrence And sodium chloride 0.9 % injection 2-10 mLJump to med 2-10 mL, intravenous, As needed, line care, Starting on Tue11/14/23 at 1059 documented in this encounter Care Teams Log Hauler Relationship Specialty Start Date End Date Elsewhere, Pcp PCP - General Internal Medicine 08/13/23 documented as of this encounter
--- OUTSIDE RECORDS SUMMARY | 2023-11-15 11:53 | XMS_ITS ---
Author Organization [facility] Address [address] [place] [address] Care Team Providers Care Liner Machine Operator Helper Name Role Phone Unavailable Unavailable Unavailable Surgery Details Not on file Complications Check Surgery Details section. Procedure Estimated Blood Loss Check Surgery Details section. Procedure Findings Check Surgery Details section. Procedure Specimens Taken Check Surgery Details section.
--- OUTSIDE RECORDS SUMMARY | 2023-11-15 11:53 | XMS_ITS | Encounter Summary ---
Author Organization [facility] Address [address] [place] [address] Care Team Providers Care Framing Specialist Name Role Phone Elsewhere, Pcp Primary Care Provider Unavailabl e Encounter Details Date Type Department Care Team (Late st Contact Info) Description 11/15/2023 10:40 AM CDT Ancillary Procedure Department of Wound Ostomy Arrived Social History Tobacco Use Types Packs/Day Years Used Date Smoking Tobacco: Never Smokeless Tobacco: Never [facility] Utilities Answer Date Recorded In the past 12 months has e electric, gas, oil, or water [employer] threatened to shut off services in your [...] [facility] place to live 11/15/2023 Sex and Gender Information Value Date Recorded Sex Assigned at Not on file Gender Identity Not on file Sexual Orientation Not on file documented as of this encounter Plan of Treatment Upcoming Encounters Date Type Department Care Team (Latest Contact Info) Description 12/07/2023 10:15 AM CDT Procedure visit Department of Urology in [place] [address] [place] [phone] Burke Strauss M.D. [address] [place] [phone] Discharge Disposition: Home or Self Care 12/07/2023 10:30 AM CDT Office Visit Department of Urology in [place] [address] [place] [phone] Burke Strauss M.D. [address] [place] [phone] Discharge Disposition: Home or Self Care documented as of this encounter Procedures Procedure Name Priority Date/Time Associated Diagnosis Comments WOUND OSTOMY IMAGE EXAM Routine 11/15/2023 10:40 AM CDT documented in this encounter Results * Coccyx-Wound Ostomy Image Exam (11/15/2023 10:40 [...] on filedocumented in this encounter Care Teams Framing Specialist Relationship Specialty Start Date End Date Elsewhere, Pcp PCP - General Internal Medicine 08/13/23 documented as of this encounter
--- OUTSIDE RECORDS SUMMARY | 2023-11-15 11:53 | XMS_ITS | Referral Summary ---
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 For routine questions regarding patient records, call [phone] during business hours, M-F 8:00 AM - 5:00 PM Central Time. Record requests for emergency care only can be directed to [phone] at any time.[facility] Encounters Date Type Department Care Team Description 11/15/2023 10:40 AM CDT Ancillary Procedure Department of Wound Ostomy Arrived 11/14/2023 11:38 PM CDT - Present Hospital Encounter [facility], Fifth Floor [address] [place] [phone] Eliceo Guerrier M.D., Ph.D. Sylvie Álvarez M.B.BJonahSJonah, MPerla. Rashawn Vences M.D. 11/14/2023 Documentation Department of Urology in [address] [phone] Sowmya Aviles APRN, C.N.P., M.S.N. 11/14/2023 10:44 AM CDT - 11/14/2023 10:23 PM CDT Emergency [facility] [address] [place] [phone] Sergio Raza M.D. Hematuria (Primary Dx); Malfunction Mechanical Urethral Catheter Initial (HCC) Discharge Disposition: Acute Care Hospital 11/10/2023 Clinical Communication Department of Urology in [place], [place] [address] [place] [phone] Burke Strauss M.D. Oncology records request 11/09/2023 Clinical Communication Department of Urology in [place], [place] [address] [place] [phone] Burke Strauss M.D. 11/09/2023 11:00 AM CDT Office Visit Department of Urology in [address] [phone] Burke Strauss M.D. Primary Malignant Neoplasm Of Prostate (HCC) (Primary Dx); Retention Urinary Chronic; Hematuria Gross Discharge Disposition: Home or Self Care 10/27/2023 Clinical Communication Department of Urology in [address] [phone] Burke Strauss M.D. 10/14/2023 Documentation Department of Urology in [place], [place] [address] [place] [phone] Paula Hernandez M.D. Catheter Care Plan 10/14/2023 1:00 PM CDT Procedure visit Department of Urology in [place], [place] [address] [place] [phone] Paula Hernandez M.D. Reichmann, Lynne G RNarendra Hematuria 09/27/2023 Clinical Communication Department of Urology in [place], [place] [address] [place] [phone] Paula Hernandez M.D. 09/21/2023 Clinical Communication Department of Urology in [place], [place] [address] [place] [address] Paula Hernandez M.D. 09/16/2023 Clinical Communication Department of Urology in [place], [place] [address] [place] [phone] Provider, Unknown follow up questions 09/16/2023 Orders Only Department of Urology in [place], [place] [address] [place] [phone] Paula Hernandez M.D. Hematuria Gross (Primary Dx) 09/15/2023 Clinical Communication [facility] [address] [place] [phone] Yasmine Loco 09/09/2023 7:24 AM CDT - 09/15/2023 5:28 PM CDT Hospital Encounter [facility], Sixth Floor [address] [place] [phone] Gerri Merrill M.D., Ph.D. Sumit Holbrook M.D. Hematuria (Primary Dx) Discharge Disposition: Home or Self Care 09/09/2023 12:10 PM CDT Ancillary Procedure Department of Nursing 09/09/2023 Documentation Department of Urology in [place], [place] [address] [place] [phone] Ko Victoria M.D. 09/06/2023 Orders Only Section of Hyperbaric Medicine in [place], [place] [address] [place] [phone] Kira Ferraro APRN, C.N.P., M.S.N. 09/06/2023 Clinical Communication [facility] [address] [place] [phone] Yasmine Loco 08/30/2023 7:35 PM CDT - 09/05/2023 4:09 PM CDT Hospital Encounter [facility], First Floor [address] [place] [phone] Kirstin Hughes M.D. Thompson, R. Houston, M.D. Hematuria (Primary Dx); Tachycardia; Hematuria Gross Discharge Disposition: Home-Health Care Sv 09/01/2023 10:05 AM CDT Ancillary Procedure Department of Nursing 08/31/2023 12:25 PM CDT Ancillary Procedure Department of General Surgery 08/31/2023 12:34 PM CDT Anesthesia Event [facility] [address] [place] [phone] Joe Stoll M.D. Gran, Terry L, APRN, BUS MONITOR 08/31/2023 12:36 PM CDT - 08/31/2023 2:31 PM CDT Surgery [facility] [place] [phone] Mayur Alvarez M.D. CYSTOSCOPY EVACUATION CLOTS 08/30/2023 Documentation Department of Urology in [place], [place] [address] [place] [phone] Corin Ring M.D. 08/30/2023 Intake [facility] 08/26/2023 Orders Only Department of Urology in [place], [place] [address] [place] [phone] Paula Hernandez M.D. 08/13/2023 3:42 PM CDT - 08/26/2023 4:11 PM CDT Hospital Encounter [facility], Sixth Floor [address] [place] [phone] Darnell Garcia M.D. Chow, George K, M.D. Decline Functional Status [R53.81] (Primary Dx); Hematuria [R31.9] Discharge Disposition: Home or Self Care 08/23/2023 12:45 AM CDT Ancillary Procedure Department of Nursing 08/15/2023 8:30 AM CDT Anesthesia Event [facility] [address] [place] [phone] Hayde Song M.D. 08/15/2023 7:55 AM CDT - 08/15/2023 11:23 AM CDT Surgery [facility] [address] [place] [phone] Boubacar Brock M.D. Palliative EXPLORATORY LAPAROTOMY, CYSTOTOMY CLOSURE, RIGHT URETERAL STENT EXCHANGE from Last 3 Months Allergies No known [...] In the past 12 months has e Bfly, gas, oil, or water [employer] threatened to shut off services in your [...] a [facility] to live 11/15/2023 Sex and [...] CDT Procedure visit Department of Urology in [place] [address] [place] [phone] Burke Strauss M.D. [address] [place] [phone] Discharge Disposition: Home or Self Care 12/07/2023 10:30 AM CDT Office Visit Department of Urology in [place] [address] [place] [phone] Burke Strauss M.D. [address] [place] [phone] Discharge Disposition: Home or Self Care Medical Devices Implanted Type Area Test Conductor Device Identifier Shelf Expiration Date Model / Serial / Lot Clp Hrzn Ti 6 Clp Lg Orng - [id number] Implanted:Qt y: 1 on 08/15/2023 by Boubacar Brock M.D. at [facility] Hardware e.g. pins/screws /rods [employer]dom[employer] [id number] 02/29/2028 [id number] / / [id number] Clp Hrzn Ti 6 Clp Lg Orng - [id number] Implanted:Qt y: 1 on 08/15/2023 by Boubacar Brock M.D. at [facility] Hardware e.g. pins/screws /rods [employer]dom[employer] [id number] 02/29/2028 [id number] / / [id number] Clp Hrzn Ti 6 Clp Md Monty - [id number] Implanted:Qt y: 1 on 08/15/2023 by Boubacar Brock M.D. at [facility] Hardware e.g. pins/screws /rods [employer]dom[employer] [id number] 03/13/2028 [id number] / / [id number] 1 Clp Hrzn Ti 6 Clp Md Monty - [id number] Implanted:Qt y: 1 on 08/15/2023 by Boubacar Brock M.D. at [facility] Hardware e.g. pins/screws /rods Abdom[employer] [id number] 03/21/2028 [id number] / / [id number] 3 Stnt Uret Inl 6fx24 - [id number] Implanted:Qt y: 1 on 08/15/2023 by Jakob De Paz M.D. at [facility] Ureteral Stent N/A: Ureter C.R.Bard [id number] 11/18/2027 [id number] / / [id number] Procedures The patient is currently admitted. The [...] Raza M.D. LAB BLOOD BANK TEST ORDERABLES [facility] [address] [place] [address], [facility] MKTO [facility] in [place] [address] [place] [address] * Coccyx-Wound Ostomy Image Exam (11/15/2023 10:40 [...] RAD IMAGI NG PROCEDURES Performing Organization Address City/[facility]/ZIP Co de Phone Number IIND NA * (ABNORMAL) CBC with Differential, Blood [...] Sylvie Wright M.D. LAB BLO OD ADD-ON [facility] [address] [place] [address], [facility] MKTO [facility] [place] [address] * (ABNORMAL) Comprehensive Metabolic Panel (11/15/2023 7:31 [...] Sylvie Wright M.D. LAB BLO OD ADD-ON [facility] [address] [place] [address], [facility] MKTO [facility] [place] [address] [place] [address] * ECG 12 Lead (11/15/2023 6:47 AM CDT) Only the most recent of3 resultswithin the time period is included. Ventricular Rate ECG/Min 65 BPM MUSE VT Interval 144 ms MUSE QRSD Interval 76 ms MUSE QT Interval 430 ms MUSE QTC Interval 447 ms MUSE P [place] -7 degrees MUSE R [place] 9 degrees MUSE T Wave [place] 19 degrees MUSE 11/15/2023 6:47 AM CDT 11/15/2023 6:53 AM CDT Impressions MUSE - 11/15/2023 6:53 AM CDT Normal sinus rhythm Normal ECG When compared with ECG of 30-Aug-2023 19:44, Premature atrial complexes are no longer present Vent. rate has decreased by ??80 bpm Reviewed by BETTY Powers Sylvie Wright M.D. ECG ORD ERABLES MUSE NA * (ABNORMAL) Urinalysis with Microscopic if Indicated (11/15/2023 6:25 AM CDT) Pathologist [facility] Source Urine, Urine, Midstream 11/15/2023 7:49 AM [...] to determine due to color interference Specific Mcconnells SEE COMMENT 1.001 - 1.035 11/15/2023 8:03 AM CDT MKTO Comment:Unable to determine due to color interference Urobilinogen SEE COMMENT 0.2 - 1.0 mg/dL 11/15/2023 8:03 AM CDT MKTO Comment:Unable to determine due to color interference Urine (Urine, Midstream) 11/15/2023 6:25 AM CDT 11/15/2023 6:34 AM CDT Sylvie Wright M.D. LAB URI NE ORDERABLES [facility] [address] [place] [address], [facility] MKTO [facility] [place] [address] * (ABNORMAL) Microscopic Automated (11/15/2023 6:25 AM [...] 6:25 AM CDT 11/15/2023 6:34 AM CDT Jennifer NortonD. LAB URI NE ORDERABLES [facility] [address] [place] [address], [facility] MKTO [facility] [place] [address] [place] [address] * CT Abdomen Pelvis without IV Contrast [...] Bank Hold Sample (11/14/2023 11:09 AM CDT) [facility] Blood Bank Hold Sample HOLD Confirmed 11/14/2023 11:31 AM CDT NPRG Blood (Blood, Venous) 11/14/2023 11:09 AM CDT 11/14/2023 11:12 AM CDT Sergio Raza M.D. LAB BLOOD BANK TEST ORDERABLES [facility] [address] [place] [address], [place] [facility] [address] [place] [address] * Basic Metabolic Panel (11/14/2023 11:09 AM CDT) Only the most recent of13 resultswithin the time period is included. [facility] Potassium, P 4.6 3.6 - 5.2 mmol/L [...] CDT Sergio Raza M.D. LAB BLOOD ADD-ON [facility] [address] [place] [address], [facility] NPRG [facility] [address] [place] [address] * (ABNORMAL) CBC without Differential (09/15/2023 3:37 [...] BLOOD ADD-ON [facility] [address] [place] [address], [facility] [address] [place] [address] * Heparin Anti-Xa Assay (09/14/2023 3:19 AM [...] Sumit Holbrook M.D. LAB BLOOD NON ADD-ON [facility] [address] [place] [address], [facility] [address] [place] [address] * IR Nephrostomy Tube Placement Left (09/13/2023 2:20 PM CDT) Anatomical Region Laterality Modality Genito Urinary, Vascular Int erventional RST LOS, Vascular Interventional ARZ LOS, Vascular Interventional FLA LOS Left X-Ray Angiography Impressions 09/13/2023 2:33 PM CDT Left 10 Guamanian percutaneous nephrostomy tube placement. EP Narrative 09/13/2023 [...] tract was further dilated and a 10 Guamanian nephrostomy tube was placed with loop formed [...] sedation timewas: 9 minutes. IMPRESSION: Left 10 Guamanian percutaneous nephrostomy tube placement. EP Latisha Whitehead [...] MICROBIOLOGY - GENERAL ORDERABLES Performing Organization Address City/[facility]/ZIP Co de Phone Number [facility] [address] [facility] [address] [place] [address] * Gram Stain (09/13/2023 2:17 PM CDT) Gram Stain No organisms seen. White blood cells, Rare 09/13/2023 9:02 PM CDT DTL Fluid (Kidney, Left) 09/13/2023 2:17 PM CDT 09/13/2023 3:56 PM CDT Comment:Specimen Source Site : Fluid Latisha Whitehead M.D. LAB MICROBIOLOGY - GENERAL ORDERABLES Performing Organization Address City/[facility]/ZIP Co de Phone Number [facility] [address] [place] [address] * Fungal Culture, Routine (09/13/2023 2:17 PM CDT) Fungal Culture, Routine No growth after 24 days of incubation. 10/08/2023 1:02 AM CDT DTL Fluid (Kidney, Left) 09/13/2023 2:17 PM CDT 09/13/2023 3:56 PM CDT Comment:Specimen Source Site : Fluid Latisha Whitehead M.D. LAB MICROBIOLOGY - GENERAL ORDERABLES Performing Organization Address City/[facility]/ZIP Co de Phone Number [facility] [address] [place] [address], [facility] [address] [place] [address] * Bacterial Culture, Anaerobic + Susceptibility (09/13/2023 2:17 PM CDT) Bacterial Culture, Anaerobic + Susc No growth after 14 days of incubation. 09/27/2023 8:04 AM CDT DTL Fluid (Kidney, Left) 09/13/2023 2:17 PM CDT 09/13/2023 3:56 PM CDT Comment:Specimen Source Site : Fluid Latisha Whitehead M.D. LAB MICROBIOLOGY - GENERAL ORDERABLES Performing Organization Address City/[facility]/RUST Co de Phone Number [facility] [address] [place], [place] [address] [address] [place] [address] * APTT (Activated Partial Thromboplastin Time) (09/13/2023 5:56 AM CDT) Only the most recent of18 resultswithin the time period is included. Activated Partial Thrombopl Time, P 35 25 - 37 sec 09/13/2023 7:14 AM CDT DTL Blood (Blood, Venous) 09/13/2023 5:56 AM CDT 09/13/2023 6:53 AM CDT Sumit Holbrook M.D. LAB BLOOD ADD-ON Performing Organization Address City/[facility]/ZIP Co de Phone Number [facility] [address] [place] [address], [facility] [address] [place] [address] * NM Kidney DMSA (09/12/2023 12:21 PM [...] RAD IMAGI NG PROCEDURES Performing Organization Address City/[facility]/ZIP Co de Phone Number IIMS NA * Osmolality, Urine (09/09/2023 11:28 AM CDT) Osmolality, U 380 150 - 1150 mOsm/kg 09/09/2023 12:19 PM CDT DTL Urine 09/09/2023 11:2 8 AM CDT 09/09/2023 11:58 AM CDT Jeffery Church M.D. LAB URINE ORDERA BLES Performing Organization Address [facility]/RUST Co de Phone Number [facility] [address] [place] [address], [facility] [address] [place] [address] * (ABNORMAL) Dipstick, Urine (09/09/2023 11:28 AM [...] LAB URINE ORDERA BLES Performing Organization Address [facility]/RUST Co de Phone Number [facility] [address] [place] [address], [facility] [address] [place] [address] * pH, Random, Urine (09/09/2023 11:28 AM CDT) pH, Random, U 6.3 4.5 - 8.0 09/09/2023 12:19 PM CDT DTL Urine 09/09/2023 11:2 8 AM CDT 09/09/2023 11:58 AM CDT Jeffery Church M.D. LAB URINE STEFFANY BRAVO Performing Organization Address [facility] de Phone Number [facility] [address] [place] [address], [facility] [address] [place] [address] * (ABNORMAL) Microscopic Manual (09/09/2023 11:28 AM [...] LAB URINE STEFFANY CROWDERBryon Performing Organization Address [facility]/RUST Co de Phone Number [facility] [address] [place] [address], [facility] [address] [place] [address] * (ABNORMAL) Bacterial Culture, Aerobic + Susceptibility, [...] - GENERAL ORDERABLES [facility] [address] [place] [id number] [address] [place] [address] * (ABNORMAL) Gram Stain, Urine (09/09/2023 11:28 AM CDT) Source Urine, Urine, Straight Catheter 09/09/2023 11:58 AM CDT DTL Gram Stain, U Positive(A) Negative 09/09/2023 12:16 PM CDT DTL Comment: Few Gram-negative bacilli ? Yeast Urine 09/09/2023 11:2 8 AM CDT 09/09/2023 11:58 AM CDT Jeffery Church M.D. [place] [address] * (ABNORMAL) Urinalysis, with Microscopic: Urine, Straight [...] 09/09/2023 1:02 PM CDT DTL Predicted Range 2480-47121 mg/24 h 09/09/2023 1:02 PM CDT DTL Comment Micro done on <2.5 mL 09/09/2023 12:27 PM CDT DTL Urine (Urine, Straight Catheter) 09/09/2023 11:28 AM CDT 09/09/2023 11:58 AM CDT Jeffery Church M.D. LAB URINE ORDERA BLES [facility] [address] [place] [address], [place] DTL [facility] [address] [place] [address] * US Kidneys Bilateral with Bladder (09/09/2023 [...] Prothrombin Time (PT) (09/09/2023 8:04 AM CDT) Pathologist [facility] Prothrombin Time, P 12.5 9.4 - 12.5 sec 09/09/2023 8:14 AM CDT STMA INR 1.1 0.9 - 1.1 09/09/2023 8:14 AM CDT STMA Comment: ----ADDITIONAL INFORMATION---- Standard intensity warfarin therapeutic range: 2.0 to 3.0 ?? High intensity warfarin therapeutic range: 2.5 to 3.5 Blood (Blood, Venous) 09/09/2023 8:04 AM CDT 09/09/2023 8:08 AM CDT Jeffery Church M.D. LAB BLOOD ADD-ON [facility] [address] [place] [address], [facility] [address] [place] [address] * Type and Screen (with Reflex Antibody ID) (09/09/2023 8:03 AM CDT) Only the most recent of5 resultswithin the time period is included. Pathologist [facility] ABORh O Pos Not applicable 09/09/2023 8:47 AM CDT STRM Antibody Screen Negative Negative 09/09/2023 9:02 AM CDT STRM Type & Screen Expiration 09/12/2023 23:59 09/09/2023 8:47 AM CDT STRM Testing Location Marcio [facility] 09/09/2023 8:10 AM CDT STRM Blood (Blood, Venous) 09/09/2023 8:03 AM CDT 09/09/2023 8:10 AM CDT Jeffery Church M.D. LAB BLOOD BANK T EST ORDERABLES Performing Organization Address [facility]/ZIP Co de Phone Number [facility] [address] [place] [address], [facility] STRM [facility] [address] [place] [address] * Potassium (09/05/2023 4:56 AM CDT) Only the most recent of2 resultswithin the time period is included. Potassium, S 3.6 3.6 - 5.2 mmol/L 09/05/2023 5:49 AM CDT DTL Blood (Blood, Venous) 09/05/2023 4:56 AM CDT 09/05/2023 5:22 AM CDT Roxy Romero M.D. LAB BLOOD ADD-ON Performing Organization Address [facility]/RUST Co de Phone Number [facility] [address] [place] [address], [facility] [address] [place] [address] * FL Fluoro Less Than 1 Hour [...] AIRWAY (08/31/2023 12:43 PM CDT) Narrative Benjamin Williamson, GAVIN DIAS - 08/31/2023 12:43 PM CDT Benjamin Williamson APRN, CRNA ? 08/31/2023 12:55 PM Airway Date/Time: 08/31/2023 12:43 PM Performed by: Benjamin Williamson APRN, CRNA Authorized by: Joe Sotll M.D. ?? Patient location during procedure: OR [...] Vieira M.D., M.S. LAB BLOO D ADD-ON [address] [address] DTL [facility] [address] [place] [address] * Lactate (08/30/2023 9:50 PM CDT) Lactate, P 1.8 0.5 - 2.2 mmol/L 08/30/2023 10:09 PM CDT STMA Blood (Blood, Venous) 08/30/2023 9:50 PM CDT 08/30/2023 9:55 PM CDT Shannan Correa D.O., M.H.A. LAB BLOOD NON ADD-ON [facility] [address] [facility] 200 [place] [address] * DX Chest AP or PA and [...] M.D. LAB BLOOD ADD-ON Performing Organization Address City/[facility]/ZIP Co de Phone Number [facility] [address] [place] [address], [facility] [address] [place] [address] * Magnesium (08/26/2023 3:20 AM CDT) Only the most recent of5 resultswithin the time period is included. Magnesium, S 2.1 1.7 - 2.3 mg/dL 08/26/2023 4:04 AM CDT DT Blood (Blood, Venous) 08/26/2023 3:20 AM CDT 08/26/2023 3:50 AM CDT Boubacar Brock M.D. LAB BLOOD ADD-ON Performing Organization Address [facility]/RUST Co de Phone Number [facility] [address] [place] [address], [facility] [address] [place] [address] * (ABNORMAL) Phosphorus Inorganic (08/23/2023 9:58 PM CDT) Only the most recent of2 resultswithin the time period is included. Phosphorus (Inorganic), S 2.1(L) 2.5 - 4.5 mg/dL 08/23/2023 10:45 PM CDT DTL Blood (Blood, Venous) 08/23/2023 9:58 PM CDT 08/23/2023 10:30 PM CDT Paula Hernandez M.D. LAB BLOOD ADD-ON Performing Organization Address City/[facility]/ZIP Co de Phone Number [facility] [address] [place] [address], [facility] [address] [place] [address] * Triglycerides (08/23/2023 3:42 AM CDT) Only [...] M.D. LAB BLOOD ADD-ON Performing Organization Address City/[facility]/ZIP Co de Phone Number [facility] [address] [place] [address], [facility] [address] [place] [address] * Glucose, POCT (08/22/2023 11:38 PM CDT) Pathologist [facility] Glucose, POCT, B 117 70 - 140 mg/dL 08/23/2023 1:06 AM CDT PCLX Site Capillary 08/23/2023 1:06 AM CDT PCLX Last Intake NPO 08/23/2023 1:06 AM CDT PCLX Blood 08/22/2023 11:3 8 PM CDT 08/23/2023 1:06 AM CDT Unknown Provider LAB POCT ORDERABLES- MANUAL Performing Organization Address City/[facility]/ZIP Co de Phone Number POC [facility] [address] [place] [address], [facility] PCLX [facility] P[facility] [address] [place] [address] * Creatinine, Body Fluid (08/22/2023 3:30 PM [...] transport rates. All other fluids refer to [email or web address] for further interpretive information. This test has been modified from the tool and die maker apprentice's instructions. Its performance characteristics were determined by [facility] in a manner consistent with CLIA requirements. This test has not been cleared or approved by the U.S. Food and Drug Administration. Fluid Type, Creatinine Fluid, Abdomen 08/22/2023 3:52 PM CDT DTL Fluid (Abdomen) 08/22/2023 3 :30 PM CDT 08/22/2023 6:36 PM CDT Corin Rnig M.D. LAB BODY FLUIDS AND STOOLS ORDERABLES Performing Organization Address City/State/RUST Co de Phone Number [facility] [address] [place] [address], [facility] [address] [place] [address] * IR PICC Line Placement (08/22/2023 8:35 AM CDT) Anatomical Region Laterality Modality Chest, Pelvis, Abdomen, Vasc ular Interventional RST LOS, Vascular Interventional ARZ LOS, Vascular Interventional FLA LOS N/A X-Ray Angiography Impressions 08/22/2023 9:05 AM CDT Placement of a right IJ vein single-lumen 4 Guamanian tunneled PowerPICC ready for immediate use. NR [...] advanced into the IVC and a 4 Guamanian dilator advanced over the wire and attached to a one-way stopcock. A suitable exit site in the right anterior chest was anesthetized and a small incision made. A 4 Guamanian single-lumen PowerPICC was then tunneled from the [...] Wireadvanced into the IVC and a 4 Guamanian dilator advanced over the wire andattached to a one-way stopcock. A suitable exit site in the right anteriorchest was anesthetized and a small incision made. A 4 Guamanian single-lumen PowerPICC was then tunneled fromthe skin [...] of a right IJ vein single-lumen 4 Guamanian tunneled PowerPICCready for immediate use. NR Kimi Vieira M.D., M.S. IMG IR P ROCEDURES * Place peripherally inserted central catheter (PICC) [...] the atrophic right kidney. Lizette Harvey M.D. [facility] [facility] [place] PROCEDUR ES * US Lower Extremity [...] and management can be found on the On The Net Yet site. Link [email or web address] Findings discussed with ??Tayler Greenwood, ?? ([id number]) on 08/17/2023 7:11 PM. Procedure Note Jj [...] can be found on theAskMayoExpert site. [email or web address] Findings discussed with Tayler Greenwood MD ([id number]) on 08/17/2023 7:11 PM. IMPRESSION: 1. Aging, [...] NON ADD-O N [facility] [address] [place] [address] * Patient Status (08/15/2023 11:56 AM CDT) Only the most recent of2 resultswithin the time period is included. Temperature 36.2 37.0 deg C 08/15/2023 12:04 PM CDT STMA Blood 08/15/2023 11:5 6 AM CDT 08/15/2023 12:03 PM CDT Rae Gonzalez APRN, GAVIN, DNAP LAB BLOO D NON ADD-ON Performing Organization Address City/[facility]/ZIP Co de Phone Number [facility] [address] [place] [address] * Sodium, B (08/15/2023 11:56 AM CDT) Only the most recent of2 resultswithin the time period is included. Sodium, B 135 135 - 145 mmol/L 08/15/2023 12:06 PM CDT STMA Blood (Blood, Arterial Line) 08/15/2023 11:56 AM CDT 08/15/2023 12:03 PM CDT Hayde Song M.D. LAB BLOOD NON ADD-O N [facility] [address] [place] [address] * (ABNORMAL) Blood Gas with Coox, Arterial [...] ADD-O N [facility] [address] [place] [address], [facility] [address] [place] [address] * Potassium, Blood (08/15/2023 11:56 AM CDT) Only the most recent of2 resultswithin the time period is included. Potassium, B 4.3 3.6 - 5.2 mmol/L 08/15/2023 12:07 PM CDT STMA Blood (Blood, Arterial Line) 08/15/2023 11:56 AM CDT 08/15/2023 12:03 PM CDT Hayde Song M.D. LAB BLOOD NON ADD-O N Performing Organization Address City/[facility]/ZIP Co de Phone Number [facility] [address] [place] [address] * (ABNORMAL) Glucose, Whole Blood (08/15/2023 11:56 AM CDT) Only the most recent of2 resultswithin the time period is included. Glucose 144(H) 70 - 140 mg/dL 08/15/2023 12:06 PM CDT STMA Blood (Blood, Arterial Line) 08/15/2023 11:56 AM CDT 08/15/2023 12:03 PM CDT Hayde Song M.D. LAB BLOOD ADD-ON Performing Organization Address [facility]/RUST Co de Phone Number [facility] [address] [place] [address] * (ABNORMAL) Calcium, Ionized (08/15/2023 11:56 AM CDT) Only the most recent of2 resultswithin the time period is included. Calcium, Ionized, B 4.53(L) 4.65 - 5.30 mg/dL 08/15/2023 12:07 PM CDT STMA Blood (Blood, Arterial Line) 08/15/2023 11:56 AM CDT 08/15/2023 12:03 PM CDT Hayde Song M.D. LAB BLOOD NON ADD-O N Performing Organization Address City/[facility]/ZIP Co de Phone Number [facility] [address] [place] [address], [address] [address] * [place] ARTL CATH/CNULA MONITOR PERC, [place] US GUIDE VASC ACCESS, LDA ANE ARTERIAL LINE INSERTION, MC ANE INVASIVE CATH WITH ULTRASOUND (08/15/2023 9:51 AM CDT) Narrative Rae Gonzalez, AIRCRAFT HYDRAULIC EQUIPMENT MECHANIC, BUS MONITOR, DNAP - 08/15/2023 9:51 AM CDT Rae Gonzalez AIRCRAFT HYDRAULIC EQUIPMENT MECHANIC, BUS MONITOR, DNAP ? 08/15/2023 ??9:52 AM Invasive Catheter [...] (08/15/2023 8:40 AM CDT) Narrative Rae Gonzalez, AIRCRAFT HYDRAULIC EQUIPMENT MECHANIC, BUS MONITOR, DNAP - 08/15/2023 8:40 AM CDT Rae Gonzalez, AIRCRAFT HYDRAULIC EQUIPMENT MECHANIC, BUS MONITOR, DNAP ? 08/15/2023 ??9:48 AM Airway Date/Time: 08/15/2023 8:40 AM Performed by: Rae Gonzalez APRN, BUS MONITOR, DNAP Authorized by: Hayde Song M.D. ?? Patient location during procedure: OR / Procedure Area PROCEDURE DETAILS: Mask difficulty assessment: not attempted Final airway type: video laryngoscope Laryngeal Manipulation: no ?? Final best view of glottic structures - Cormack/Lehane Score: grade 1 ETT location: oral VL device: glide scope Goldsmith scope blade size: 4 Tube size: 7.5 [...] M.D. LAB MICROBIOLOGY - G ENERAL ORDERABLES [facility] [address] [place] [address], [facility] [address] [place] [address] from Last 3 Months Advance Directives For more information, please contact: [phone] * Full Code (Latest Code Status on [...] Answer Comments Full Code: Discussed Care Teams Grain Oilseed Or Pasture Farm Manager Relationship Specialty Start Date End Date Elsewhere, Pcp PCP - General Internal Medicine 08/13/23
--- OUTSIDE RECORDS SUMMARY | 2023-11-15 11:53 | XMS_ITS | Encounter Summary ---
Author Organization [facility] Address [address] [place] [address] Care Team Providers Care Transit Clerk Name Role Phone Elsewhere, Pcp Primary Care Provider Unavailabl e Encounter Details Date Type Department Care Team (Latest Contact Info) Description 11/14/2023 Intake [facility] Social History Tobacco [...] your living situation today? I have a [facility] to live 11/15/2023 Sex and Gender Information Value Date Recorded Sex Assigned at Not on file Gender Identity Not on file Sexual Orientation Not on file documented as of this encounter Plan of Treatment Upcoming Encounters Date Type Department Care Team (Latest Contact Info) Description 12/07/2023 10:15 AM CDT Procedure visit Department of Urology in [place] [address] [place] [phone] Burke Strauss M.D. [address] [place] [phone] Discharge Disposition: Home or Self Care 12/07/2023 10:30 AM CDT Office Visit Department of Urology in [place] [address] [place] [address] Burke Strauss M.D. [address] [place] [phone] Discharge Disposition: Home or Self Care documented as of this encounter Visit Diagnoses Not on filedocumented in this encounter Care Teams Transit Clerk Relationship Specialty Start Date End Date Elsewhere, Pcp PCP - General Internal Medicine 08/13/23 documented as of this encounter
--- OUTSIDE RECORDS SUMMARY | 2023-11-15 11:53 | XMS_ITS | Encounter Summary ---
Author Organization [facility] Address [address] [place] [address] Care Team Providers Care Pharmacy Scheduler Name Role Phone Elsewhere, Pcp Primary Care Provider Unavailabl e Encounter Details Date Type Department Care Team (Late st Contact Info) Description 11/14/2023 11:38 PM CDT - Present Hospital Encounter [facility], Fifth Floor [address] [place] [phone] Eliceo Guerrier M.D., Ph.D. [address] [facility] [place] [phone] Sylvie Álvarez M.B.B.S., MDayday [address] [place] [address] Rashawn Vences M.D. [address] [place] [phone] Social History Tobacco Use Types Packs/Day Years Used Date Smoking Tobacco: Never Smokeless Tobacco: Never [facility] Utilities Answer Date Recorded In the past 12 months has th e [employer], oil, or water [employer] threatened to shut off services in your [...] [facility] to live 11/15/2023 Sex and [...] Mass Index 26.6 11/14/2023 11:59 PM CDT documented in this encounter Plan of Treatment Upcoming Encounters Date Type Department Care Team (Latest Contact Info) Description 12/07/2023 10:15 AM CDT Procedure visit Department of Urology in [address] [phone] Burke Strauss M.D. [address] [place] [phone] Discharge Disposition: Home or Self Care 12/07/2023 10:30 AM CDT Office Visit Department of Urology in [place] [address] [place] [address] Burke Strauss M.D. [address] [place] [phone] Discharge Disposition: Home or Self Care Pending Results Name Type Priority Associated Diagnoses Date /Time Bacterial Culture, Aerobic + Susceptibility, Urine Microbiology Routine 11/15/2023 6:24 AM CDT Prepare Red Blood Cells, 1 Units Blood Bank Routine 11/15/2023 11:48 AM CDT Scheduled Orders Name Type Priority Associated Diagnoses Orde r Schedule CBC with Differential, Blood Lab Routine AM collection: 0 405 (default) for 1 Occurrences starting 11/16/2023 until 11/16/2023 Comprehensive Metabolic Panel Lab Routine AM collection: 0 405 (default) for 1 Occurrences starting 11/16/2023 until 11/16/2023 Bacterial Culture, Aerobic + Susceptibility, Urine Microbiology Routine Used to de fault specific lab tests to in 24 hours from releasing the order. for 24 Hours starting 11/15/2023 until 11/15/2023 Prepare Red Blood Cells, 1 Units Blood Bank Routine Once for 1 Occurrences starting 11/15/2023 until 11/15/2023 Transfuse Red Blood Cells : , 1 Units Blood Bank Routine Transfusion fo r 1 Occurrences starting 11/15/2023 documented as of this encounter Procedures The patient is currently admitted. The information in this section might not be complete until the patient is discharged. Procedure Name Priority Date/Time Associated Diagnosis Comments CBC WITH DIFFERENTIAL, B Routine 11/15/2023 7:31 AM CDT COMPREHENSIVE METABOLIC PANEL, S/P Routine 11/15/2023 7:31 AM CDT ECG Routine 11/15/2023 6:47 AM CDT URINALYSIS WITH MICROSCOPIC IF INDICATED, U Routine 11/15/2023 6:25 AM CDT HC URINALYSIS AUTO WO MICRO Routine 11/15/2023 6:25 AM CDT documented in this encounter Results * (ABNORMAL) Comprehensive Metabolic Panel (11/15/2023 7:31 AM CDT) Potassium, P 4.2 3.6 - 5.2 mmol/L [...] Sylvie Wright M.D. LAB BLO OD ADD-ON [facility] [place] [address], [facility] in [place] [address] [place] [address] * (ABNORMAL) CBC with Differential, Blood (11/15/2023 7:31 AM CDT) Hemoglobin 7.7(L) 13.2 - 16.6 g/dL 11/15/2023 [...] Sylvie Wright M.D. LAB BLO OD ADD-ON [facility] [address] [place] [address], [facility] in [address] [address] * ECG 12 Lead (11/15/2023 6:47 AM CDT) Ventricular Rate ECG/Min 65 BPM MUSE RI Interval 144 ms MUSE QRSD Interval 76 ms MUSE QT Interval 430 ms MUSE QTC Interval 447 ms MUSE P Rebecca -7 degrees MUSE R Rebecca 9 degrees MUSE T Wave Rebecca 19 degrees MUSE 11/15/2023 6:47 AM CDT 11/15/2023 6:53 AM CDT Impressions MUSE - 11/15/2023 6:53 AM CDT Normal sinus rhythm Normal ECG When compared with ECG of 30-Aug-2023 19:44, Premature atrial complexes are no longer present Vent. rate has decreased by ??80 bpm Reviewed by BETTY Powers Sylvie Wright M.D. ECG ORD ERABLES MUSE NA * (ABNORMAL) Microscopic Automated (11/15/2023 6:25 AM [...] Sylvie Wright M.D. LAB URI NE ORDERABLES [facility] [address] [place] [address], [facility] [place] [address] [place] [address] * (ABNORMAL) Urinalysis with Microscopic if Indicated [...] to determine due to color interference Specific [place] SEE COMMENT 1.001 - 1.035 11/15/2023 8:03 AM CDT [facility] Comment:Unable to determine due to color interference Urobilinogen SEE COMMENT 0.2 - 1.0 mg/dL 11/15/2023 8:03 AM CDT [facility] Comment:Unable to determine due to color interference Urine (Urine, Midstream) 11/15/2023 6:25 AM CDT 11/15/2023 6:34 AM CDT Sylvie Wright M.D. LAB URI NE ORDERABLES [facility] [address] [place] [address], [facility] [place] [address] [place] [address] documented in this encounter Visit Diagnoses Diagnosis Hematuria Gross- Primary Primary Malignant Neoplasm Of Prostate (HCC) documented in this encounter Admitting Diagnoses Diagnosis Hematuria Gross documented in this encounter Administered Medications Active Administered Medications - up to 3 most recent administrations Medication Order MAR Action Action Date Dose Rate Site amLODIPine tablet 10 mg (Norvasc) 10 mg, oral, Daily, First dose on Tue11/15/23 at 0900 Given 11/15/2023 9:34 AM CDT 10 mg metoprolol succinate 24 hr tablet 50 mg (Toprol XL) 50 mg, oral, Daily at bedtime, First dose on Tue11/15/23 at 0030, Do NOT crush or chew. Tablet may be split on score if needed. Given 11/15/2023 1:02 AM CDT 50 mg NaCl 0.9% infusion 50 mL/hr, intravenous, Continuous, Starting on Tue11/15/23 at 0045, For 12 hours New Bag 11/15/2023 1:02 AM CDT 50 mL/hr 50 mL/hr NaCl 0.9% infusion 20-500 mL/hr, intravenous, Once as needed, Between Units of Blood Products, Starting on Tue11/15/23 at 1138, For 1 dose, Infuse at the same rate as the blood infusion until tubing cleared. Nurse may reduce rate to 20 mL/hour or as otherwise directed until next blood infusion arrives then discontinue when infusion complete. rosuvastatin tablet 40 mg (Crestor) 40 mg, oral, Daily at bedtime, First dose on Tue11/15/23 at 0030 Given 11/15/2023 1:01 AM CDT 40 mg solifenacin tablet 5 mg (Vesicare) 5 mg, oral, Daily, First dose on Tue11/15/23 at 0900, mirabegron 50 mg daily was interchanged for solifenacin 5 mg oral daily See tube feeding guidelines for tube feeding administration instructions. Given 11/15/2023 9:34 AM CDT 5 mg tamsulosin 24 hr capsule 0.4 mg (Flomax) 0.4 mg, oral, Daily at bedtime, First dose on Tue11/15/23 at 0030, Swallow whole. Do NOT crush, chew or open capsule. Given 11/15/2023 1:01 AM CDT 0.4 mg documented in this encounter Active and Recently Administered Medications Times are shown in CDT. Scheduled Medication Order 11/13/2023 11/14/2023 11/15/2023 amLODIPine tablet 10 mg (Norvasc) 10 mg, oral, Daily, First dose on Tue11/15/23 at 0900 0934 (Given - Provid er: Solitario Gonzalez R.N.) enzalutamide capsule 120 mg (Xtandi) 120 mg, oral, Every morning, First dose on Tue11/15/23 at 0900, HAZARDOUS - Handle with care. Swallow whole. Do NOT crush, chew or open capsule. 0955 (Not Given - Pr ovider: Solitario Gonzalez R.N. - Reason: Medication not available - Comment: Not available through the Hospital. Patient does not have it with him.) metoprolol succinate 24 hr tablet 50 mg (Toprol XL) 50 mg, oral, Daily at bedtime, First dose on Tue11/15/23 at 0030, Do NOT crush or chew. Tablet may be split on score if needed. 0102 (Given - Provid er: Nuvia Ocasio R.N.)2100 (Due) rosuvastatin tablet 40 mg (Crestor) 40 mg, oral, Daily at bedtime, First dose on Tue11/15/23 at 0030 0101 (Given - Provid er: Nuvia Ocasio RJonahN.)2100 (Due) solifenacin tablet 5 mg (Vesicare) 5 mg, oral, Daily, First dose on Tue11/15/23 at 0900, mirabegron 50 mg daily was interchanged for solifenacin 5 mg oral daily See tube feeding guidelines for tube feeding administration instructions. 0934 (Given - Provid er: Solitario Gonzalez R.N.) tamsulosin 24 hr capsule 0.4 mg (Flomax) 0.4 mg, oral, Daily at bedtime, First dose on Tue11/15/23 at 0030, Swallow whole. Do NOT crush, chew or open capsule. 0101 (Given - Provid er: Nuvia Ocasio R.N.)2100 (Due) Continuous Medication Order 11/13/2023 11/14/2023 11/15/2023 NaCl 0.9% infusion 50 mL/hr, intravenous, Continuous, Starting on Tue11/15/23 at 0045, For 12 hours 0102 (New Bag - Prov ider: Nuvia Ocasio R.N.) PRN Medication Order 11/13/2023 11/14/2023 11/15/2023 NaCl 0.9% infusion 20-500 mL/hr, intravenous, Once as needed, Between Units of Blood Products, Starting on Tue11/15/23 at 1138, For 1 dose, Infuse at the same rate as the blood infusion until tubing cleared. Nurse may reduce rate to 20 mL/hour or as otherwise directed until next blood infusion arrives then discontinue when infusion complete. documented in this encounter Care Teams Pharmacy Scheduler Relationship Specialty Start Date End Date Elsewhere, Pcp PCP - General Internal Medicine 08/13/23 documented as of this encounter
--- OUTSIDE RECORDS SUMMARY | 2023-11-15 11:53 | XMS_ITS ---
Author Organization [facility] Address [address] [place] [address] Care Team Providers Care Endband Cutter Hand Name Role Phone Elsewhere, Pcp Primary Care [...] On Elapsed Days Session Dose Total Dose [id number] 04/28/2020 32 300 cGy 6,000 cGy Lifetime Dose Tracking * Chemical Lifetime Dose Automatic Entry Manual Entr y Radiation 20.4 mGy 20.4 mGy 0 mGy Fluoro Time 2.005 minutes 2.005 minutes 0 minutes DAP (uGy-m2) 479.6 uGy-m2 479.6 uGy-m2 0 uGy-m2
--- OUTSIDE RECORDS SUMMARY | 2023-11-15 11:54 | XMS_ITS | Encounter Summary ---
Author Organization [facility] Address [address] [place] [address] Care Team Providers Care Professor Of Biblical Studies Name Role Phone Elsewhere, Pcp Primary Care Provider Unavailabl e Reason for Referral * Outpatient (Routine) - Authorized Specialty Diagnoses / Procedures Referred By Contac t Referred To Contact Urology Burke Strauss M.D. [address] [place] [phone] [facility] Region Referral ID Status Reason Start Date Expiration Date V isits Requested Visits Authorized [id number] Authorized 11/09/2023 05/10/2025 1 1 * Outpatient (Routine) - Authorized Specialty Diagnoses / Procedures Referred By Contac t Referred To Contact Diagnoses Retention Urinary Chronic Procedures URO Urethral cath change (UCC) Burke Strauss M.D. [address] [place] [phone] [facility] Region Referral ID Status Reason Start Date Expiration Date V isits Requested Visits Authorized [id number] Authorized 11/09/2023 11/08/2024 15 15 Reason for Visit * Reason Comments Consult Discuss catheter thomas nges * Appointment Request (Routine) - Closed Specialty Diagnoses / Procedures Referred By Leyla rosenthal Referred To Contact Urology Referral ID Status Reason Start Date Expiration Date Visits Re quested Visits Authorized [id number] Closed 10/27/2023 10/26/2024 1 1 Encounter Details Date Type Department Care Team (Late st Contact Info) Description 11/09/2023 11:00 AM CDT Office Visit Department of Urology in [facility], [place] [address] [place] [phone] Burke Strauss M.D. [address] [place] [phone] Primary Malignant Neoplasm Of Prostate (HCC) (Primary Dx); Retention Urinary Chronic; Hematuria Gross Discharge Disposition: Home or Self Care Social History Tobacco Use Types Packs/Day Years Used Date Smoking Tobacco: Never Smokeless Tobacco: Never [facility] [employer] Answer Date Recorded In the past 12 months has [facility] electric, gas, oil, or water [employer] threatened to shut off services in your [...] on file documented as of this encounter Consult Notes * Burke Strauss M.D. - 11/09/2023 11:00 AM CDT SUBJECTIVE CHIEF COMPLAINT / REASON FOR VISIT Kalen Vega is a 83 y.o. male presenting in referral from No ref. provider found for consultation in the evaluation of Consult (Discuss catheter changes). HISTORY OF PRESENT ILLNESS Patient presents to establish care from [facility]. He has multiple urologic issues including metastatic prostate cancer status post radiation, currently on ADT with enzalutamide and leuprolide. He has developed radiation cystitis and radiation proctitis, with the recurrent GI bleeds necessitating multiple transfusions. Patient developed clot obstruction complicated by bladder perforation, necessitating exploratory laparotomy and cystotomy closure on 08/15/2023. Patient has nonfunctional right kidney, DMSA on 09/12/2023 demonstrated 3% function on the right, his right ureteral stent was removed on 09/16/2023. Patient was found to have mild left hydronephrosis, unclear if extrinsic or intrinsic compression. Interventional Radiology placed a left nephrostomy tube for urinary diversion. He developed an Enterobacter infection with resistance to cephalosporins and he was treated with trimethoprim sulfamethoxazole on 09/12/2023. He is due for his Tabares catheter exchange now. He has developed some mild gross hematuria over the past few days. Original plan from [place] was to exchange his left nephrostomy tube in 3 months, due 12/14/2023. He reports getting good output from the left neph tube without hematuria. His radiation cystitis, radiation proctitis and sacral ulcer currently being treated with hyperbaric oxygen therapy through the [facility] in [facility]. He has completed 19 of 45 planned treatments and expects to finish that course in early December. Metastatic prostate cancer is being managed by [facility], Dr. Mireya Tan. Release of information will be obtained so those records can be reviewed. Patient is also on Plavix for his cardiac stents and Xarelto for a history of DVT. Reviewed documentation from prior evaluation by PCP, urology,. Lab studies reviewed including creatinine 1.24 on 09/13/2023, CBC from 09/22/2023 showed hemoglobin of 8.0. The following portions of the patient's history were reviewed and updated as appropriate: allergies, current medications, family history, medical history, social history, surgical history, and problem list. OBJECTIVE PHYSICAL EXAM Clear, light red urine output through urethral catheter. No significant sediment. ASSESSMENT / PLAN 1. Primary Malignant Neoplasm Of Prostate (HCC) 2. Retention Urinary Chronic 3. Hematuria Gross Orders Placed This Encounter Procedures Urology office visit (clinic) General URO Urethral cath change (UCC) Patient will continue to manage his metastatic prostate cancer through [facility] Oncology, Dr. Darío Hope. Release of information signed today for record review. Patient was able to have his Tabares catheter successfully exchanged today without complication. Planfor exchange in 1 month. I would like to meet for with him for an office visit in 1 month, we can discuss whether or not to continue with the Tabares catheter versus a trial of removal. He would need a cystoscopy with a trial of void in the clinic. He does prefer the Tabares catheter to his baseline urination because of his bothersome nocturia, however, we discussed the ongoing risk of infection with the catheter in place. As for his nephrostomy tube, patient was under the understanding that this could potentially be removed following his hyperbaric oxygen treatment. Patient did have mild left hydronephrosis and has the potential for both intrinsic and extrinsic obstruction of the left ureter, along with a nonfunctional right kidney. If he is interested in moving forward with an attempt to remove the nephrostomy tube, I would have him set up an antegrade nephrogram through Interventional Radiology in [place] prior to nephrostomy tube removal. documented in this encounter Plan of Treatment Upcoming Encounters Date Type Department Care Team (Latest Contact Info) Description 12/07/2023 10:15 AM CDT Procedure visit Department of Urology in [address] [phone] Burke Strauss M.D. [address] [place] [phone] Discharge Disposition: Home or Self Care 12/07/2023 10:30 AM CDT Office Visit Department of Urology in [address] [phone] Burke Strauss M.D. [address] [place] [phone] Discharge Disposition: Home or Self Care Scheduled Orders Name Type Priority Associated Diagnoses Orde r Schedule URO Urethral cath change (UCC) Procedure Routine Retention Urinary Chronic 15 Occurrences starting 11/09/2023 until 02/08/2025 Scheduled Referrals Name Type Priority Associated Diagnoses Orde r Schedule Urology office visit (clinic) General Outpatient Referral Routine Expected: 12/06/2023 (Approximate), Expires: 02/08/2025 documented as of this encounter Visit Diagnoses Diagnosis Primary Malignant Neoplasm Of Prostate (HCC)- Primary Retention Urinary Chronic Hematuria Gross documented in this encounter Care Teams Professor Of Biblical Studies Relationship Specialty Start Date End Date Elsewhere, Pcp PCP - General Internal Medicine 08/13/23 documented as of this encounter
--- OUTSIDE RECORDS SUMMARY | 2023-11-15 11:54 | XMS_ITS | Encounter Summary ---
Author Organization [facility] Address [address] [place] [address] Care Team Providers Care Construction Recruiter Name Role Phone Elsewhere, Pcp Primary Care Provider Unavailabl e Encounter Details Date Type Department Care Team (Late st Contact Info) Description 09/21/2023 Clinical Communication Department of Urology in [place], [place] [address] [place] [address] Paula Hernandez M.D. [address] [place] [phone] Social History Tobacco Use Types Packs/Day Years Used Date Smoking Tobacco: Never Smokeless Tobacco: Never [facility] Utilities Answer Date Recorded In the past 12 months has [facility], gas, oil, or water boarding pass threatened to shut off services in your [...] have a [facility] place to live 09/09/2023 Sex and Gender Information Value Date Recorded Sex Assigned at Not on file Gender Identity Not on file Sexual Orientation Not on file documented as of this encounter Miscellaneous Notes * Telephone Encounter - Paula Hernandez M.D. - 09/21/2023 2:37 PM CDT I called the patient's [place] physician who he saw yesterday, 09/19 in [...] CDT Procedure visit Department of Urology in [place], [place] [address] [place] [address] Burke Strauss M.D. [facility] [place] [phone] Discharge Disposition: Home or Self Care 12/07/2023 10:30 AM CDT Office Visit Department of Urology in [place] [address] [place] [address] Burke Strauss M.D. [address] [place] [phone] Discharge Disposition: Home or Self Care documented as of this encounter Visit Diagnoses Not on filedocumented in this encounter Care Teams Construction Recruiter Relationship Specialty Start Date End Date Elsewhere, Pcp PCP - General Internal Medicine 08/13/23 documented as of this encounter
--- OUTSIDE RECORDS SUMMARY | 2023-11-15 11:54 | XMS_ITS | Encounter Summary ---
Author Organization [facility] Address [address] [place] [address] Care Team Providers Care Pharmacovigilance Safety Expert Name Role Phone Elsewhere, Pcp Primary Care [...] has e electric, gas, oil, or water [employer] threatened to shut off services in your [...] a [facility] to live 09/09/2023 Sex and Gender Information Value Date Recorded Sex Assigned at Not on file Gender Identity Not on file Sexual Orientation Not on file documented as of this encounter Plan of Treatment Upcoming Encounters Date Type Department Care Team (Latest Contact Info) Description 12/07/2023 10:15 AM CDT Procedure visit Department of Urology in [address] [phone] Burke Strauss M.D. [address] [place] [phone] Discharge Disposition: Home or Self Care 12/07/2023 10:30 AM CDT Office Visit Department of Urology in [place] [address] [place] [address] Burke Strauss M.D. [address] [place] [phone] Discharge Disposition: Home or Self Care documented [...] on filedocumented in this encounter Care Teams Pharmacovigilance Safety Expert Relationship Specialty Start Date End Date Elsewhere, Pcp PCP - General Internal Medicine 08/13/23 documented as of this encounter
--- OUTSIDE RECORDS SUMMARY | 2023-11-15 11:54 | XMS_ITS | Encounter Summary ---
Author Organization [facility] Address [address] [place] [address] Care Team Providers Care Fire Equipment Operator Name Role Phone Elsewhere, Pcp Primary Care Provider Unavailabl e Reason for Referral * Outpatient (Routine) - Closed Specialty Diagnoses / Procedures Referred By Contac t Referred To Contact Diagnoses Hematuria Procedures URO Urethral cath change (UCC) Paula Hernandez M.D. [address] [place] [address] [facility] Referral ID Status Reason Start Date Expiration Date Visits Re quested Visits Authorized [id number] Closed 09/15/2023 09/14/2024 1 1 * Outpatient (Routine) - Authorized Specialty Diagnoses / Procedures Referred By Contac t Referred To Contact Radiology Diagnoses Hematuria Procedures IR Nephrostomy Tube Exchange Left Paula Hernandez M.D. [address] [place] [address] [facility] Referral ID Status Reason Start Date Expiration Date V isits Requested Visits Authorized [id number] Authorized 09/15/2023 09/14/2024 1 1 Reason for Visit * Reason Comments Blood in Urine Encounter Details Date Type Department Care Team (Latest Contact Info) Description 09/09/2023 7:24 AM CDT - 09/15/2023 5:28 PM CDT Hospital Encounter [facility], Sixth Floor [address] [place] [phone] Gerri Merrill M.D., Ph.D. [address] [place] [phone] Sumit Holbrook M.D. [address] [place] [phone] Hematuria (Primary Dx) Discharge Disposition: Home or Self Care Social History Tobacco Use Types Packs/Day Years Used Date Smoking Tobacco: Never Smokeless Tobacco: Never [facility] [employer] Answer Date Recorded In the past 12 months has [facility] [employer], gas, oil, or water [employer] threatened to shut off services in your [...] living situation today? I have a [facility] place to live 09/09/2023 Sex and [...] AM CDT DISCHARGE SUMMARY BRIEF OVERVIEW Hospital: [facility] Discharge Provider: Sumit Holbrook M.D. Primary Team: [facility] Urology Surgery - Chief Helga Rojas [...] IP CONSULT TO UROLOGY IP CONSULT TO IRRIGATION DISTRICT MANAGER WOUND CARE IP CONSULT TO HYPERBARIC MEDICINE IP CONSULT TO VASCULAR MEDICINE IP CONSULT TO DIETITIAN CONDITION AT DISCHARGE stable Discharge instructions were provided to the patient and caregiver(s). documented in this encounter Discharge Instructions * Discharge Instructions* Yasmine Loco - 09/09/2023 12:27 PM CDT You were discharged from the [facility] Urology Surgery - Chief A - Blue Service. Please identify this service name if you call with questions after hospitalization. * Attachments The following attachments cannot be sent through Care Everywhere. * Sulfamethoxazole/Trimethoprim (By mouth) (Indonesian) documented in this encounter Medications at Time [...] for 2 days. 4 tablet 09/15/2023 09/17/2023 trospium (SANCTURA) 20 mg tablet Take 1 tablet (20 mg total) by mouth 2 (two) times a day as needed (bladder spasms). please stop 24 hours prior to catheter removal 20 tablet 08/26/2023 documented as of this encounter Progress Notes [...] home. Social Work also sent referral to [facility] and reached out to Service [...] reviewed. GI Function: Last BM Date: 09/11/23, [place] Stool Chart: Type 5: Soft blobs with [...] 86.8 kg (09/09/2023) Current Weight: 84.5 kg [place] Body Weight (Calculated) : 75.3 kg BMI [...] or 5%. Estimated Needs: Total Calorie Needs: 6699-7100 calories/day Method to Estimate Energy Needs: kcal/kg [...] about patient's nutritional care please contact pager [phone] on weekdays 07:30-16:00 or [phone] on weekends/holidays ([facility]). * Clara Luu APRN, C.N.P., D.N.P. [...] - 09/14/2359 09/14/23699 - 09/15/23 0659 Shift [phone] 24 Hour Total [phone] 5035-0256 4475-9251 24 Hour Total INTAKE Other 30 60 [...] catheter, please contact Vascular and Interventional Radiology DEBIB ([phone]). Anticoagulation: A percutaneous nephrostomy tube is considered [...] care. Please feel free to page the [facility] Inpatient Consult Service at [phone] or the on-call resident at [phone] after 5 PM and on weekends with [...] . Neph tube clear yellow urine. I/O ([id number]): 1.9 L, 1.1 L from the neph [...] questions or concerns. Pager during business hours: [phone] Pager after hours: [phone] * Paula Hernandez M.D. - 09/13/2023 6:05 [...] in place draining clear yellow urine I/O ([id number]): Adequate urine output 2.7 L/248 1 L p.o. Labs: Labs pending Cultures: 09/08 Enterobacter urine culture ASSESSMENT AND PLAN: Mr. Vgea is a pleasant 83 y.o. male presenting [...] questions or concerns. Pager during business hours: [phone] Pager after hours: [phone] * Raya Meza Pharm.D., R.Ph., [facility] - 09/12/2023 7:44 AM CDT Images [...] follow for medicationuse optimization Pharm. YanciDJonah, R.Ph., [facility] Addendum: Heparin will be stopped [...] in place draining clear yellow urine I/O ([id number]): CBI paused for obs Labs: Hb: Hemoglobin [...] Date/Time Bacterial Culture, Aerobic + Susceptibility, Urine [[id number]] (Abnormal) (Susceptibility) Collected: 09/09/23 1128 Lab Status: [...] Susceptible Bacterial Culture, Aerobic + Susceptibility, Urine [[id number]] Collected: 09/03/23 1050 Lab Status: Final result [...] questions or concerns. Pager during business hours: [phone] Pager after hours: [phone] * Js Yang M.D. - 09/11/2023 9:18 [...] Service [place] [phone] during business hours orat [phone] after hours. * Portillo Crespo Pharm.D., R.Ph., [...] at 0000 Mayur Collier PharmD, LUCERO, BCPS, [facility] Pager [phone] * Js Yang M.D. - 09/10/2023 9:50 [...] Service [place] [phone] during business hours orat [phone] after hours. * Quin Harrell Pharm.D., R.Ph., [...] R.N., C.W.C.N. - 09/09/2023 1:16 PM CDT [facility] Wound RN consulted to assess [...] None Unable to Measure N *Wound Bed Open;[place];Yellow;Fibrin/Slough Tissue Exposed None Odor None *Exudate Amount Small Drainage Description Serous;Perez Janiya-wound Assessment Intact;Fragile;[place];Purple;Maceration;White Periwound Treatment Liquid skin protectant (SurePrep) *Primary Dressing Gelling fiber/Hydrofiber (Aquacel Ag) *Primary Dressing Frequency of Change Daily & PRN *Secondary Dressing Foam (Sacral Mepilex Border) *Secondary Dressing Frequency of Change Daily & PRN Lengthy Treatment > 30 minutes > 30 minutes Ongoing management Nursing;Wound/nut process helper Partial head to toe skin assessment completed [...] nursing. They agree to the plan. The [facility] RN will continue to see the patient, contact or reconsult for worsening wounds or new wounds. Electronically signed by: Jazmine Benítez R.N., C.W.C.N. 09/09/23 1:16 PM CDT * Raya Meza Pharm.D., R.Ph., [facility] - 09/09/2023 11:17 AM CDT Images [...] for medicationuse optimization Stephanie Meza Pharm.D., R.Ph., [facility] Admission Medication History Note Adherence issues: No concerns Medication list source: Patient, son, recent filling Hx Medication related information: Per pt, he takes amlodipine, mirabegron daily in the afternoon, around 1 to 2 pm-tucker, for no specific reasons Prior to Admission Medications Med List Status: Pharmacy Complete Set By: Raya Meza Pharm.D., R.Ph., [facility] at 09/09/2023 11:16 AM Taking? [...] follow Paula Hernandez M.D. Urology PGY-2 Pager #[phone] Please page Chief Urology at [phone] from 7 AM - 5 PM or at [phone] after hours with any questions/concerns. documented in [...] reviewed. GI Function: Last BM Date: 09/11/23, [place] Stool Chart: Type 5: Soft blobs with [...] 86.8 kg (09/09/2023) Current Weight: 84.5 kg [place] Body Weight (Calculated) : 75.3 kg BMI [...] or 5%. Estimated Needs: Total Calorie Needs: 8428-3969 calories/day Method to Estimate Energy Needs: kcal/kg [...] about patient's nutritional care please contact pager [phone] on weekdays 07:30-16:00 or [phone] on weekends/holidays ([facility]). * Clara Luu, ARUN, C.N.P., D.N.P. [...] admitted for CBI. He was transferred to [facility] after difficultywith irrigating his Jon and [...] and recommendations. Please feel free to page [phone] [phone] after 5 PM and on weekends with additional questions. VIR will continue to follow * Alessandra Aguero D.O. - 09/09/2023 5:26 PM CDTAssociated Order(s): IP CONSULT TO VASCULAR MEDICINE VASCULAR MEDICINE CONSULT NOTE Requesting Physician: Gerri Merrill M.D.,* SUBJECTIVE REASON FOR CONSULT: assistance with AC management, patient on plavix and eliquis admitted with refractory hematuria requing CBI. Recommend heparin drip? thanks [facility] [phone] HISTORY OF PRESENT ILLNESS Mr. Vega is [...] for radiation proctitis SOCIAL HISTORY Lives in [place], [place] OBJECTIVE AVSS General: Lying in bed, [...] with Dr. Victoria, the chief urology resident certification technician. Please page chief Urology Service [place] [phone] [place] [phone] after hours. Paula Hernandez M.D. 09/09/23 9:10 [...] End of Shift Summary: Pt DC'd to [facility] with family. Patient educated on nephrostomy tube [...] Urology consulted after discussion with the catheter large animal husbandry technician who advised that for this patient they are required to get approval from Urologyprior to placing catheter. ED Course as of 09/09/23 0958 TueSeptember 09, 2023 0822 Hemoglobin(!): 8.9 Down from 9.6 one-week ago 0822 Leukocytes(!): 14.5 New leukocytosis with neutrophilia 0822 INR: 1.1 0823 Discussed with the catheter large animal husbandry technician. Bladder scan showed 125 mL. There [...] CDT Procedure visit Department of Urology in [address] [phone] Burke Strauss M.D. [address] [place] [address] Discharge Disposition: Home or Self Care 12/07/2023 10:30 AM CDT Office Visit Department of Urology in [place], [place] [address] [place] [address] Burke Strauss M.D. [address] [place] [address] Discharge Disposition: Home or Self Care Pending [...] M.D. LAB BLOOD ADD-ON Performing Organization Address [facility]/ZIP Co de Phone Number [facility] [address] [place], [place] [phone] [place] [address] [facility] [address] [place] [address] * Heparin Anti-Xa Assay (09/14/2023 3:19 AM CDT) Heparin Anti-Xa, P 0.11 IU/mL 2023 4:07 [...] Sumit Holbrook M.D. LAB BLOOD NON ADD-ON [facility] [address] [place], [place] [phone] [place] [address] [facility] [address] [place] [address] * (ABNORMAL) CBC without Differential (09/14/2023 3:19 AM CDT) Hemoglobin 10.1(L) 13.2 - 16.6 g/dL 09/14/2023 [...] CDT Paula Hernandez M.D. LAB BLOOD ADD-ON [facility] [address] [facility] [address] [place] [address] * IR Nephrostomy Tube Placement Left (09/13/2023 2:20 PM CDT) Anatomical Region Laterality Modality Genito Urinary, Vascular Int erventional RST LOS, Vascular Interventional ARZ LOS, Vascular Interventional FLA LOS Left X-Ray Angiography Impressions 09/13/2023 2:33 PM CDT Left 10 Gren[place] percutaneous nephrostomy tube placement. EP Narrative 09/13/2023 [...] tract was further dilated and a 10 Gren[place] nephrostomy tube was placed with loop formed [...] sedation timewas: 9 minutes. IMPRESSION: Left 10 [place] percutaneous nephrostomy tube placement. EP Latisha Whitehead M.D. IMG IR PROCEDURE S * Fungal Culture, Routine (09/13/2023 2:17 PM CDT) Fungal Culture, Routine No growth after 24 days of incubation. 10/08/2023 1:02 AM CDT DTL Fluid (Kidney, Left) 09/13/2023 2:17 PM CDT 09/13/2023 3:56 PM CDT Comment:Specimen Source Site : Fluid Latisha Whitehead M.D. LAB MICROBIOLOGY - GENERAL ORDERABLES [facility] [address] [place] [address], [facility] [address] [place] [address] * Bacterial Culture, Anaerobic + Susceptibility (09/13/2023 2:17 PM CDT) Bacterial Culture, Anaerobic + Susc No growth after 14 days of incubation. 09/27/2023 8:04 AM CDT DTL Fluid (Kidney, Left) 09/13/2023 2:17 PM CDT 09/13/2023 3:56 PM CDT Comment:Specimen Source Site : Fluid Latisha Whitehead M.D. LAB MICROBIOLOGY - GENERAL ORDERABLES Performing Organization Address City/[facility]/ZIP Co de Phone Number [facility] [address] [place] [address], [facility] [address] [place] [address] * Gram Stain (09/13/2023 2:17 PM CDT) Gram Stain No organisms seen. White blood cells, Rare 09/13/2023 9:02 PM CDT DT Fluid (Kidney, Left) 09/13/2023 2:17 PM CDT 09/13/2023 3:56 PM CDT Comment:Specimen Source Site : Fluid Latisha Whitehead M.D. LAB MICROBIOLOGY - GENERAL ORDERABLES Performing Organization Address City/[facility]/ZIP Co de Phone Number [facility] [address] [place], [place] [address] [address] [place] [address] * Bacterial Culture, Aerobic + Susceptibility (09/13/2023 2:17 PM CDT) Bacterial Culture, Aerobic + Susc No growth after 5 days of incubation. 09/18/2023 12:35 PM CDT DTL Fluid (Kidney, Left) 09/13/2023 2:17 PM CDT 09/13/2023 3:56 PM CDT Comment:Specimen Source Site : Fluid Latisha Whitehead M.D. LAB MICROBIOLOGY - GENERAL ORDERABLES [facility] [address] [place] [address], [facility] [address] [place] [address] * (ABNORMAL) CBC without Differential (09/13/2023 5:57 AM CDT) [facility] Hemoglobin 9.3(L) 13.2 - 16.6 g/dL [...] CDT Ko Victoria M.D. LAB BLOOD ADD-ON [address] [address], [address] [address] * Heparin Anti-Xa Assay (09/13/2023 5:56 AM CDT) [facility] Heparin Anti-Xa, P 0.10 IU/mL 2023 [...] LAB BLOOD NON ADD-ON Performing Organization Address City/[facility] Co de Phone Number [facility] [address] [place] [address] * APTT (Activated Partial Thromboplastin Time) (09/13/2023 5:56 AM CDT) [facility] Activated Partial Thrombopl Time, P 35 25 - 37 sec 09/13/2023 7:14 AM CDT DTL Blood (Blood, Venous) 09/13/2023 5:56 AM CDT 09/13/2023 6:53 AM CDT Sumit Holbrook M.D. LAB BLOOD ADD-ON Performing Organization Address [facility] Co de Phone Number [facility] [address] [place] [address] * (ABNORMAL) Basic Metabolic Panel (09/13/2023 5:56 AM CDT) [facility] Potassium, S 3.7 3.6 - 5.2 [...] CDT Paula Hernandez M.D. LAB BLOOD ADD-ON [facility] [address] [place] [address], [facility] [address] [place] [address] * NM Kidney DMSA (09/12/2023 12:21 PM [...] reduced radiotracer uptake asdescribed. Js Yang M.D. [facility] PROCEDURES * Transfuse Red Blood Cells : [...] M.D. LAB BLOOD ADD-ON Performing Organization Address City/[facility]/ZIP Co de Phone Number [facility] [address] [facility] [address] [place] [address] * (ABNORMAL) APTT (Activated Partial Thromboplastin Time) (09/12/2023 3:42 AM CDT) [facility] Activated Partial Thrombopl Time, P 49(H) 25 - 37 sec 09/12/2023 4:35 AM CDT DTL Blood (Blood, Venous) 09/12/2023 3:42 AM CDT 09/12/2023 4:00 AM CDT Gerri Merrill M.D., Ph.D. LAB BLOOD A DD-ON Performing Organization Address [facility] Co de Phone Number [facility] [address] [facility] [address] [place] [address] * (ABNORMAL) Basic Metabolic Panel (09/11/2023 8:23 [...] CDT Js Yang M.D. LAB BLOOD ADD-ON [facility] [address] [place] [address], [facility] [address] [place] [address] * (ABNORMAL) CBC without Differential (09/11/2023 8:23 AM CDT) Pathologist [facility] Hemoglobin 8.2(L) 13.2 - 16.6 g/dL 09/11/2023 [...] M.D. LAB BLOOD ADD-ON Performing Organization Address City/[facility]/ZIP Co de Phone Number [facility] [address] [place] [address] * (ABNORMAL) APTT (Activated Partial Thromboplastin Time) (09/10/2023 11:42 PM CDT) [facility] Activated Partial Thrombopl Time, P 47(H) 25 - 37 sec 09/11/2023 2:05 AM CDT DTL Blood (Blood, Venous) 09/10/2023 11:42 PM CDT 09/11/2023 2:05 AM CDT Gerri Merrill M.D., Ph.D. LAB BLOOD A DD-ON Performing Organization Address City/[facility]/ZIP Co de Phone Number [facility] [address] [place] [address] * US Urinary Bladder (09/10/2023 8:41 PM [...] Merrill M.D., Ph.D. LAB BLOOD A DD-ON [facility] [address] [place] [address], [facility] [address] [place] [address] * (ABNORMAL) APTT (Activated Partial Thromboplastin Time) (09/10/2023 10:11 AM CDT) Activated Partial Thrombopl Time, P 63(H) 25 - 37 sec 09/10/2023 10:57 AM CDT DTL Blood (Blood, Venous) 09/10/2023 10:11 AM CDT 09/10/2023 10:40 AM CDT Gerri Merrill M.D., Ph.D. LAB BLOOD A DD-ON Performing Organization Address [facility] Co de Phone Number [facility] [address] DTL [facility] [address] [place] [address] * (ABNORMAL) CBC without Differential (09/10/2023 3:27 AM CDT) Hemoglobin 8.1(L) 13.2 - 16.6 g/dL 09/10/2023 [...] M.D. LAB BLOOD ADD-ON Performing Organization Address City/[facility]/ZIP Co de Phone Number [facility] [address] [place], [place] [phone] [place] [address] DTL [facility] [address] [place] [address] * (ABNORMAL) APTT (Activated Partial Thromboplastin Time) (09/10/2023 12:06 AM CDT) Pathologist [facility] Activated Partial Thrombopl Time, P 57(H) 25 - 37 sec 09/10/2023 1:05 AM CDT DTL Blood (Blood, Venous) 09/10/2023 12:06 AM CDT 09/10/2023 12:33 AM CDT Gerri Merrill M.D., Ph.D. LAB BLOOD A DD-ON Performing Organization Address City/[facility]/ZIP Co de Phone Number [facility] [address] [place] [address] * APTT (Activated Partial Thromboplastin Time) (09/09/2023 5:08 PM CDT) [facility] Activated Partial Thrombopl Time, P 31 25 - 37 sec 09/09/2023 5:24 PM CDT STMA Blood (Blood, Venous) 09/09/2023 5:08 PM CDT 09/09/2023 5:12 PM CDT Ko Victoria M.D. LAB BLOOD ADD-ON [facility] [address] [place] [address] * (ABNORMAL) Dipstick, Urine (09/09/2023 11:28 AM CDT) Pathologist [facility] Hemoglobin, QL, U Large(A) Negative 09/09/2023 12:03 [...] Jeffery Church M.D. LAB URINE ORDERA BLEBryon [facility] [address] [place] [address], [facility] [address] [place] [address] * pH, Random, Urine (09/09/2023 11:28 AM CDT) pH, Random, U 6.3 4.5 - 8.0 09/09/2023 12:19 PM CDT DTL Urine 09/09/2023 11:2 8 AM CDT 09/09/2023 11:58 AM CDT Jeffery Church M.D. LAB URINE ORDERA BLEBryon Performing Organization Address City/[facility]/ZIP Co de Phone Number [facility] [address] [place] [address], [facility] [address] [place] [address] * Osmolality, Urine (09/09/2023 11:28 AM CDT) Osmolality, U 380 150 - 1150 mOsm/kg 09/09/2023 12:19 PM CDT DTL Urine 09/09/2023 11:2 8 AM CDT 09/09/2023 11:58 AM CDT Jeffery Church M.D. LAB URINE ORDERA BLES [facility] [address] [place] [address], [facility] [address] [place] [address] * (ABNORMAL) Microscopic Manual (09/09/2023 11:28 AM [...] LAB URINE ORDERA SHELLY Performing Organization Address [facility] Co de Phone Number [facility] [address] [facility] [address] [place] [address] * (ABNORMAL) Gram Stain, Urine (09/09/2023 11:28 AM CDT) Source Urine, Urine, Straight Catheter 09/09/2023 11:58 AM CDT DTL Gram Stain, U Positive(A) Negative 09/09/2023 12:16 PM CDT DTL Comment: Few Gram-negative bacilli ? Yeast Urine 09/09/2023 11:2 8 AM CDT 09/09/2023 11:58 AM CDT Jeffery Church M.D. LAB URINE ORDERA BLES Performing Organization Address [facility] Co de Phone Number [facility] [address] [place] [address], [facility] DTL [facility] [address] [place] [address] * (ABNORMAL) Bacterial Culture, Aerobic + Susceptibility, Urine (09/09/2023 11:28 AM CDT) [facility] Urine Culture ENTEROBACTER CLOACAE COMPLEX >100,000 [...] MICROBIOLOGY - GENERAL ORDERABLES Performing Organization Address [facility] Co de Phone Number [facility] [address] [place], [place] [address] [address] [address] * (ABNORMAL) Urinalysis, with Microscopic: Urine, Straight [...] 09/09/2023 1:02 PM CDT DTL Predicted Range 2480-76137 mg/24 h 09/09/2023 1:02 PM CDT DTL Comment Micro done on <2.5 mL 09/09/2023 12:27 PM CDT DTL Urine (Urine, Straight Catheter) 09/09/2023 11:28 AM CDT 09/09/2023 11:58 AM CDT Jeffery Church M.D. LAB URINE ORDERA BLES Performing Organization Address City/[facility]/ZIP Co de Phone Number [facility] [address] [place] [address], [facility] [address] [place] [address] * US Kidneys Bilateral with Bladder (09/09/2023 [...] Time (PT) (09/09/2023 8:04 AM CDT) Pathologist [facility] Prothrombin Time, P 12.5 9.4 - 12.5 sec 09/09/2023 8:14 AM CDT STMA INR 1.1 0.9 - 1.1 09/09/2023 8:14 AM CDT STMA Comment: ----ADDITIONAL INFORMATION---- Standard intensity warfarin therapeutic range: 2.0 to 3.0 ?? High intensity warfarin therapeutic range: 2.5 to 3.5 Blood (Blood, Venous) 09/09/2023 8:04 AM CDT 09/09/2023 8:08 AM CDT Jeffery Church M.D. LAB BLOOD ADD-ON [facility] [address] [place] [address], [facility] [address] [place] [address] * (ABNORMAL) CBC with Differential, Blood (09/09/2023 8:04 AM CDT) [facility] Hemoglobin 8.9(L) 13.2 - 16.6 g/dL [...] CDT Jeffery Church M.D. LAB BLOOD ADD-ON [facility] [address] STMA [facility] [address] [place] [address] * (ABNORMAL) Basic Metabolic Panel (09/09/2023 8:04 [...] M.D. LAB BLOOD ADD-ON Performing Organization Address City/[facility] Co de Phone Number [facility] [address] [place] [address], [facility] STMA [address] [address] * Type and Screen (with Reflex Antibody [...] BANK T EST ORDERABLES Performing Organization Address [facility] Co de Phone Number [facility] [address] [place] [address], [facility] STRM [facility] [address] [place] [address] documented in this encounter Visit Diagnoses Diagnosis [...] min PRN, sedation, RASS 0, Starting on 09/13/23 at 1402, For 3 [...] catheter 1014 (Given - Provider: Leonardo Clark R.N.)2106 (Given - Provider: Lilia Whitney R.N.) 09 (Given - Provider: Brittanie Lewis R.N.)2101 (Given - Provider: Brittanie Lewis R.N.) 0904 (Given - Provider: Brittanie Lewis R.N.) trospium [...] (RAD) 1406 (Given - Provider: Lars Chavez RJonahN.)1409 (Given - Provider: Lars Chavez R.N.)[id number] (Given [...] documented as of this encounter Care Teams Fire Equipment Operator Relationship Specialty Start Date End Date Elsewhere, Pcp PCP - General Internal Medicine 08/13/23 documented as of this encounter
--- OUTSIDE RECORDS SUMMARY | 2023-11-15 11:54 | XMS_ITS | Encounter Summary ---
Author Organization [facility] Address [address] [place] [address] Care Team Providers Care Radio Equipment Installer Name Role Phone Elsewhere, Pcp Primary Care Provider Unavailabl e Encounter Details Date Type Department Care Team (Late st Contact Info) Description 09/27/2023 Clinical Communication Department of Urology in [place], [place] [address] [place] [phone] Paula Hernandez M.D. [address] [place] [phone] Social History Tobacco Use Types Packs/Day Years Used Date Smoking Tobacco: Never Smokeless Tobacco: Never [facility] Utilities Answer Date Recorded In the past 12 months has [facility] electric, gas, oil, or water [employer] threatened to shut off services in your [...] a [facility] place to live 09/09/2023 Sex and [...] CDT Procedure visit Department of Urology in [address] [phone] Burke Strauss M.D. [address] [place] [phone] Discharge Disposition: Home or Self Care 12/07/2023 10:30 AM CDT Office Visit Department of Urology in [place], [place] [address] [place] [address] Burke Strauss M.D. [address] [place] [phone] Discharge Disposition: Home or Self Care documented as of this encounter Visit Diagnoses Not on filedocumented in this encounter Care Teams Radio Equipment Installer Relationship Specialty Start Date End Date Elsewhere, Pcp PCP - General Internal Medicine 08/13/23 documented as of this encounter
--- OUTSIDE RECORDS SUMMARY | 2023-11-15 11:54 | XMS_ITS | Encounter Summary ---
Author Organization [facility] Address [address] [place] [phone] Care Team Providers Care Dental Instructor Name Role Phone Elsewhere, Pcp Primary Care Provider Unavailabl e Reason for Visit * Reason Comments Urinary Retention * Outpatient (Routine) - Closed Specialty Diagnoses / Procedures Referred By Contaraceli t Referred To Contact Diagnoses Hematuria Procedures URO Urethral cath change (UCC) Paula Hernandez M.D. [address] [place] [phone] [facility] Referral ID Status Reason Start Date Expiration Date Visits Re quested Visits Authorized [id number] Closed 09/15/2023 09/14/2024 1 1 Encounter Details Date Type Department Care Team (Late st Contact Info) Description 10/14/2023 1:00 PM CDT Procedure visit Department of Urology in [place], [place] [address] [place] [phone] Paula Hernandez M.D. [address] [place] [phone] Khadra Miller R.N. [address] [place] [phone] Hematuria Social History Tobacco Use Types Packs/Day Years Used Date Smoking Tobacco: Never Smokeless Tobacco: Never [facility] Utilities Answer Date [...] CDT Procedure visit Department of Urology in [address] [phone] Burke Strauss M.D. [address] [place] [phone] Discharge Disposition: Home or Self Care 12/07/2023 10:30 AM CDT Office Visit Department of Urology in [address] [phone] Burke Strauss M.D. [address] [place] [phone] Discharge Disposition: Home or Self Care documented as of this encounter Visit Diagnoses Diagnosis Hematuria documented in this encounter Care Teams Dental Instructor Relationship Specialty Start Date End Date Elsewhere, Pcp PCP - General Internal Medicine 08/13/23 documented as of this encounter
--- OUTSIDE RECORDS SUMMARY | 2023-11-15 11:54 | XMS_ITS | Encounter Summary ---
Author Organization [facility] Address [address] [place] [address] Care Team Providers Care Irrigation Engineer Name Role Phone Elsewhere, Pcp Primary Care Provider Unavailabl e Encounter Details Date Type Department Care Team (Late st Contact Info) Description 10/27/2023 Clinical Communication Department of Urology in [place], [place] [address] [place] [phone] Burke Strauss M.D. [address] [place] [phone] Social History Tobacco Use Types Packs/Day Years Used Date Smoking Tobacco: Never Smokeless Tobacco: Never [facility] Utilities Answer Date Recorded In the past 12 months has e electric, gas, oil, or water [employer] threatened to shut off services in your [...] living situation today? I have a [facility] place to live 09/09/2023 Sex and [...] 2:15 PM CDT Patient follows urology in [place] but would like to transfer his care to [place] as it is closer to home. It looks like for Hematuria. Is this patient ok to see you? He has a catheter in and will need cath changes going forward. documented in this encounter Plan of Treatment Upcoming Encounters Date Type Department Care Team (Latest Contact Info) Description 12/07/2023 10:15 AM CDT Procedure visit Department of Urology in [place] [address] [place] [address] Burke Strauss M.D. [address] [place] [phone] Discharge Disposition: Home or Self Care 12/07/2023 10:30 AM CDT Office Visit Department of Urology in [place] [address] [place] [phone] Burke Strauss M.D. [address] [place] [phone] Discharge Disposition: Home or Self Care documented as of this encounter Visit Diagnoses Not on filedocumented in this encounter Care Teams Irrigation Engineer Relationship Specialty Start Date End Date Elsewhere, Pcp PCP - General Internal Medicine 08/13/23 documented as of this encounter
--- OUTSIDE RECORDS SUMMARY | 2023-11-15 11:54 | XMS_ITS | Encounter Summary ---
Author Organization [facility] Address [address] [place] [address] Care Team Providers Care Suspender Maker Name Role Phone Elsewhere, Pcp Primary Care Provider Unavailabl e Reason for Referral * Outpatient (Routine) - Authorized Specialty Diagnoses / Procedures Referred By Contac t Referred To Contact Diagnoses Hematuria Gross Procedures DX Chest AP or PA and Lateral 2 Views Paula Hernandez M.D. [address] [place] [phone] [facility] Referral ID Status Reason Start Date Expiration Date V isits Requested Visits Authorized [id number] Authorized 09/16/2023 09/15/2024 1 1 Encounter Details Date Type Department Care Team (Late st Contact Info) Description 09/16/2023 Orders Only Department of Urology in [place], [place] [address] [place] [phone] Paula Hernandez M.D. [address] [place] [phone] Hematuria Gross (Primary Dx) Social History Tobacco [...] living situation today? I have a [facility] place to live 09/09/2023 Sex and Gender Information Value Date Recorded Sex Assigned at Not on file Gender Identity Not on file Sexual Orientation Not on file documented as of this encounter Plan of Treatment Upcoming Encounters Date Type Department Care Team (Latest Contact Info) Description 12/07/2023 10:15 AM CDT Procedure visit Department of Urology in [place], [place] [address] [place] [address] Burke Strauss M.D. [address] [place] [phone] Discharge Disposition: Home or Self Care 12/07/2023 10:30 AM CDT Office Visit Department of Urology in [place], [place] [address] [place] [phone] Burke Strauss M.D. [address] [place] [phone] Discharge Disposition: Home or Self Care Scheduled [...] documented as of this encounter Care Teams Suspender Maker Relationship Specialty Start Date End Date Elsewhere, Pcp PCP - General Internal Medicine 08/13/23 documented as of this encounter
--- OUTSIDE RECORDS SUMMARY | 2023-11-15 11:54 | XMS_ITS | Encounter Summary ---
Author Organization [facility] Address [address] [place] [address] Care Team Providers Care Liquor Blender Name Role Phone Elsewhere, Pcp Primary Care Provider Unavailabl e Reason for Visit * Reason Onset Date Comments follow up questions 09/16/2023 Encounter Details Date Type Department Care Team (Latest Contact Info) Description 09/16/2023 Clinical Communication Department of Urology in [place], [place] [address] [place] [phone] Provider, Unknown follow up questions Social History Tobacco Use Types Packs/Day Years Used Date Smoking Tobacco: Never Smokeless Tobacco: Never [employer] Utilities Answer Date Recorded In the past 12 months has [facility] [employer], gas, oil, or water [employer] threatened to shut off services in your [...] your living situation today? I have a [facility] place to live 09/09/2023 Sex and [...] CDT Procedure visit Department of Urology in [place], [place] [address] [place] [address] Burke Strauss M.D. [facility] [place] [phone] Discharge Disposition: Home or Self Care 12/07/2023 10:30 AM CDT Office Visit Department of Urology in [place], [place] [address] [place] [address] Burke Strauss M.D. 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
--- OUTSIDE RECORDS SUMMARY | 2023-11-15 11:54 | XMS_ITS | Encounter Summary ---
Author Organization [facility] Address [address] [place] [address] Care Team Providers Care Manager Shop Name Role Phone Elsewhere, Pcp Primary Care Provider Unavailabl e Reason for Referral * Outpatient (Routine) - Authorized Specialty Diagnoses / Procedures Referred By Contaraceli t Referred To Contact Urology Diagnoses Hematuria Paula Benton M.D. [address] [place] [phone] [facility] Referral ID Status Reason Start Date Expiration Date V isits Requested Visits Authorized [id number] Authorized 09/15/2023 03/16/2025 1 1 Encounter Details Date Type Department Care Team (Late st Contact Info) Description 09/15/2023 Clinical Communication [facility] [address] [place] [phone] Yasmine Loco Social History Tobacco Use Types Packs/Day Years Used Date Smoking Tobacco: Never Smokeless Tobacco: Never [facility] Utilities Answer Date Recorded In [...] a [facility] place to live 09/09/2023 Sex and Gender Information Value Date Recorded Sex Assigned at Not on file Gender Identity Not on file Sexual Orientation Not on file documented as of this encounter Plan of Treatment Upcoming Encounters Date Type Department Care Team (Latest Contact Info) Description 12/07/2023 10:15 AM CDT Procedure visit Department of Urology in [place], [place] [address] [place] [phone] Burke Strauss M.D. [facility] [place] [phone] Discharge Disposition: Home or Self Care 12/07/2023 10:30 AM CDT Office Visit Department of Urology in [place], [place] [address] [place] [phone] Burke Strauss M.D. [address] [place] [phone] Discharge Disposition: Home or Self Care Scheduled [...] as of this encounter Care Teams Manager Shop Relationship Specialty Start Date End Date Elsewhere, Pcp PCP - General Internal Medicine 08/13/23 documented as of this encounter
--- OUTSIDE RECORDS SUMMARY | 2023-11-15 11:54 | XMS_ITS | Encounter Summary ---
Author Organization [facility] Address [address] [place] [address] Care Team Providers Care Real Estate Associate Attorney Name Role Phone Elsewhere, Pcp Primary Care Provider Unavailabl e Reason for Visit * Reason Comments Catheter Care Plan Encounter Details Date Type Department Care Team (Late st Contact Info) Description 10/14/2023 Documentation Department of Urology in [place], [place] [address] [place] [phone] Paula Hernandez M.D. [address] [place] [phone] Catheter Care Plan Social History Tobacco Use Types Packs/Day Years Used Date Smoking Tobacco: Never Smokeless Tobacco: Never [facility] Utilities Answer Date Recorded In the [...] a [facility] place to live 09/09/2023 Sex and Gender Information Value Date Recorded Sex Assigned at Not on file Gender Identity Not on file Sexual Orientation Not on file documented as of this encounter Progress Notes * Ashleigh Ferreira RJonahN. - 10/14/2023 2:05 PM CDT Treatment Summary and Care Plan - Catheter Exchange General Information [facility]/ Patient Name: Kalen Vega Date: 1940 Health Care Provider(s) Medical Provider(s) Cesar Mccollum M.D. Institution: No address on file [place], [place] Urology Provider(s) Chief Urology residents Last seen by Paula Hernandez M.D. Institution: [facility] Treatment Summary Diagnosis Hydronephrosis; hematuria; metastatic prostate cancer; radiation cystitis Treatment Surgery []Yes [x] No Surgery Date(s) Surgical Procedure/Location/Findings Current Treatment Information/Follow-up Care Plan Frequency of Catheter Changes (i.e. every 4 weeks) every 4 weeks Catheter Information Type: Coude red rubber Size:20F Reference #: [id number] Catheter Prescription Expires NA Last seen by [...] CDT Procedure visit Department of Urology in [place] [address] [place] [address] Burke Strauss M.D. [address] [place] [phone] Discharge Disposition: Home or Self Care 12/07/2023 10:30 AM CDT Office Visit Department of Urology in [place] [address] [place] [address] Burke Strauss M.D. [address] [place] [phone] Discharge Disposition: Home or Self Care documented as of this encounter Visit Diagnoses Not on filedocumented in this encounter Care Teams Real Estate Associate Attorney Relationship Specialty Start Date End Date Elsewhere, Pcp PCP - General Internal Medicine 08/13/23 documented as of this encounter
--- OUTSIDE RECORDS SUMMARY | 2023-11-15 11:54 | XMS_ITS | Encounter Summary ---
Author Organization [facility] Address [address] [place] [address] Care Team Providers Care Director Of Housing And Energy Services Name Role Phone Elsewhere, Pcp Primary Care Provider Unavailabl e Encounter Details Date Type Department Care Team (Late st Contact Info) Description 11/09/2023 Clinical Communication Department of Urology in [place], [place] [address] [place] [address] Burke Strauss M.D. [address] [place] [phone] Social History Tobacco Use Types Packs/Day Years Used Date Smoking Tobacco: Never Smokeless Tobacco: Never [facility] Utilities Answer Date Recorded In the [...] your living situation today? I have a [facility] place to live 09/09/2023 Sex and Gender Information Value Date Recorded Sex Assigned at Not on file Gender Identity Not on file Sexual Orientation Not on file documented as of this encounter Miscellaneous Notes * Telephone Encounter - Tayler Zaragoza, C.M.A. - 11/10/2023 8:28 AM CDT Can we move patient to Tuesday the and coordinate a cath change that day as it looks like [place] has openings that day and so does the nurse schedule. Thank you * Telephone Encounter - Burke Strauss M.D. - 11/09/2023 2:25 PM CDT Please contact patient and/or his son, Kar. He is scheduled for a catheter exchange on 12/06/2023. I would like to see him for an office visit to discuss his ongoing management and it may make more sense to have the catheter exchange on a day I am in the office, either Tuesday or Tuesday that week. If that does not work for their schedule, okay to keep the catheter exchange as scheduled and I will see them for an office visit sometime following the exchange, at their convenience. documented in this encounter Plan of Treatment Upcoming Encounters Date Type Department Care Team (Latest Contact Info) Description 12/07/2023 10:15 AM CDT Procedure visit Department of Urology in [address] [phone] Burke Strauss M.D. [facility] [place] [address] Discharge Disposition: Home or Self Care 12/07/2023 10:30 AM CDT Office Visit Department of Urology in [address] [phone] Burke Strauss M.D. [address] [place] [phone] Discharge Disposition: Home or Self Care documented as of this encounter Visit Diagnoses Not on filedocumented in this encounter Care Teams Director Of Housing And Energy Services Relationship Specialty Start Date End Date Elsewhere, Pcp PCP - General Internal Medicine 08/13/23 documented as of this encounter
--- OUTSIDE RECORDS SUMMARY | 2023-11-15 11:55 | XMS_ITS | Encounter Summary ---
Author Organization [facility] Address [address] [place] [address] Care Team Providers Care Barber Apprentice Name Role Phone Elsewhere, Pcp Primary [...] has e electric, gas, oil, or water [employer] threatened to shut off services in your [...] have a [facility] place to live 08/13/2023 Sex and Gender Information Value Date Recorded Sex Assigned at Not on file Gender Identity Not on file Sexual Orientation Not on file documented as of this encounter Plan of Treatment Upcoming Encounters Date Type Department Care Team (Latest Contact Info) Description 12/07/2023 10:15 AM CDT Procedure visit Department of Urology in [place] [address] [place] [address] Burke Strauss M.D. [address] [place] [phone] Discharge Disposition: Home or Self Care 12/07/2023 10:30 AM CDT Office Visit Department of Urology in [place] [address] [place] [address] Burke Strauss M.D. [address] [place] [phone] Discharge Disposition: Home or Self Care documented [...] on filedocumented in this encounter Care Teams Barber Apprentice Relationship Specialty Start Date End Date Elsewhere, Pcp PCP - General Internal Medicine 08/13/23 documented as of this encounter
--- OUTSIDE RECORDS SUMMARY | 2023-11-15 11:55 | XMS_ITS | Encounter Summary ---
Author Organization [facility] Address [address] [place] [address] Care Team Providers Care Cash Application Clerk Name Role Phone Elsewhere, Pcp Primary Care Provider Unavailabl e Encounter Details Date Type Department Care Team (Late st Contact Info) Description 09/01/2023 10:05 AM CDT Ancillary Procedure Department of Nursing Social History Tobacco Use Types Packs/Day Years Used Date Smoking Tobacco: Never Smokeless Tobacco: Never [facility] Utilities Answer Date Recorded In the past 12 months has e electric, gas, oil, or water [employer] threatened to shut off services in [...] living situation today? I have a [facility] place to live 08/13/2023 Sex and Gender Information Value Date Recorded Sex Assigned at Not on file Gender Identity Not on file Sexual Orientation Not on file documented as of this encounter Plan of Treatment Upcoming Encounters Date Type Department Care Team (Latest Contact Info) Description 12/07/2023 10:15 AM CDT Procedure visit Department of Urology in [address] [phone] Burke Strauss M.D. [address] [place] [phone] Discharge Disposition: Home or Self Care 12/07/2023 10:30 AM CDT Office Visit Department of Urology in [place] [address] [place] [address] Burke Strauss M.D. [address] [place] [phone] Discharge Disposition: Home or Self Care documented [...] on filedocumented in this encounter Care Teams Cash Application Clerk Relationship Specialty Start Date End Date Elsewhere, Pcp PCP - General Internal Medicine 08/13/23 documented as of this encounter
--- OUTSIDE RECORDS SUMMARY | 2023-11-15 11:55 | XMS_ITS | Encounter Summary ---
Author Organization [facility] Address [address] [place] [address] Care Team Providers Care Hydraulic Assembler Name Role Phone Elsewhere, Pcp Primary Care Provider Unavailabl e Encounter Details Date Type Department Care Team (Late st Contact Info) Description 09/09/2023 Documentation Department of Urology in [place], [place] [address] [place] [phone] Ko Victoria M.D. [address] [place] [address] Social History Tobacco Use Types Packs/Day Years Used Date Smoking Tobacco: Never Smokeless Tobacco: Never [facility] Utilities Answer Date Recorded In the past 12 months has [facility] electric, gas, oil, or water [employer] threatened to shut off services in your [...] your living situation today? I have a [facility] place to live 09/09/2023 Sex and [...] CDT Procedure visit Department of Urology in [place] [address] [place] [address] Burke Strauss M.D. [address] [place] [phone] Discharge Disposition: Home or Self Care 12/07/2023 10:30 AM CDT Office Visit Department of Urology in [address] [address] Burke Strauss M.D. [address] [place] [phone] Discharge Disposition: Home or Self Care documented as of this encounter Visit Diagnoses Not on filedocumented in this encounter Care Teams Hydraulic Assembler Relationship Specialty Start Date End Date Elsewhere, Pcp PCP - General Internal Medicine 08/13/23 documented as of this encounter
--- OUTSIDE RECORDS SUMMARY | 2023-11-15 11:55 | XMS_ITS | Encounter Summary ---
Author Organization [facility] Address [address] [place] [id number] Care Team Providers Care Customer Success Manager Name Role Phone Elsewhere, Pcp Primary Care Provider Unavailabl e Encounter Details Date Type Department Care Team (Late st Contact Info) Description 08/31/2023 12:34 PM CDT Anesthesia Event RST ROMB MAIN OR [address] [place] [address] [phone] Joe Stoll M.D. [address] [place] [address] [phone] Benjamin Williamson APRN, SCOURING PADS SUPERVISOR [address] [place] [phone] Anesthesia Record Procedure Summary Procedure Name Responsible [...] 1402 08/31/23 1243 by Benjamin Williamson APRN, SCOURING PADS SUPERVISOR 08/31/23 1402 by Benjamin Williamson APRN, SCOURING PADS SUPERVISOR Indwelling Urinary Catheter Placement Date: 08/31/23; [...] past 12 months has [facility] [employer], oil, or water [employer] threatened to shut off services in [...] [facility] place to live 08/13/2023 Sex and Gender Information Value Date Recorded Sex Assigned at Not on file Gender Identity Not on file Sexual Orientation Not on file documented as of this encounter OR Notes * Anesthesia Postprocedure Evaluation - Joe Stoll M.D. - 08/31/2023 5:27 PM CDT Patient: Kalen Vega Procedure Summary Date: 08/31/23 Room / Location: [address] 01 530 / [facility] in [place], [place] Anesthesia Start: 1234 Anesthesia Stop: 1420 Procedures: CYSTOSCOPY EVACUATION CLOTS (Bladder) CYSTOSCOPY CYSTOGRAM (Bladder) Diagnosis: Hematuria (Hematuria [R31.9]) Providers: Mayur Alavrez M.D. Responsible Provider: Joe Stoll M.D. Anesthesia [...] RM OR 108 ROMB 01 530 / [facility] in [place], [place] Providers: Mayur Alvarez M.D. Pertinent components [...] patient / legal guardian, or through an school guidance counselor; patient evaluated and approved for anesthesia / [...] CDT Procedure visit Department of Urology in [address] [phone] Burke Strauss M.D. [address] [place] [phone] Discharge Disposition: Home or Self Care 12/07/2023 10:30 AM CDT Office Visit Department of Urology in [place] [address] [place] [phone] Burke Strauss M.D. [facility] [place] [phone] Discharge Disposition: Home or Self Care documented [...] mg documented in this encounter Care Teams Customer Success Manager Relationship Specialty Start Date End Date Elsewhere, Pcp PCP - General Internal Medicine 08/13/23 documented as of this encounter
--- OUTSIDE RECORDS SUMMARY | 2023-11-15 11:55 | XMS_ITS | Encounter Summary ---
Author Organization [facility] Address [address] [place] [address] Care Team Providers Care Industrial Mechanic Name Role Phone Elsewhere, Pcp Primary Care Provider Unavailabl e Encounter Details Date Type Department Care Team (Late st Contact Info) Description 09/06/2023 Orders Only Section of Hyperbaric Medicine in [place], [place] [address] [place] [phone] Kira Ferraro, ARUN, C.N.P., M.S.N. [address] [place] [phone] Social History Tobacco Use Types Packs/Day Years [...] CDT Procedure visit Department of Urology in [address] [phone] Burke Strauss M.D. [address] [place] [phone] Discharge Disposition: Home or Self Care 12/07/2023 10:30 AM CDT Office Visit Department of Urology in [place] [address] [place] [phone] Burke Strauss M.D. 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
--- OUTSIDE RECORDS SUMMARY | 2023-11-15 11:55 | XMS_ITS | Encounter Summary ---
Author Organization [facility] Address [address] [place] [address] Care Team Providers Care Pipe Organ Installer Name Role Phone Elsewhere, Pcp Primary Care Provider Unavailabl e Reason for Visit * Reason Comments Urinary Problem Rapid Heart Rate Encounter Details Date Type Department Care Team (Late st Contact Info) Description 08/31/2023 12:36 PM CDT - 08/31/2023 2:31 PM CDT Surgery RST ROMB MAIN OR [address] [place] [address] Mayur Alvarez M.D. [address] [place] [phone] CYSTOSCOPY EVACUATION CLOTS Social History Tobacco Use Types Packs/Day Years Used Date Smoking Tobacco: Never Smokeless Tobacco: Never [facility] Utilities Answer Date Recorded In [...] your living situation today? [facility] 08/13/2023 Sex [...] PM CDT DISCHARGE SUMMARY BRIEF OVERVIEW Hospital: [facility] Discharge Provider: Mayur Alvarez M.D. [...] CYSTOGRAM Mayur Alvarez M.D.White, Lindsay A, M.D. [facility] ROMB OR DISCHARGE DISPOSITION [facility] [place] [facility] [6] ACTIVE ISSUES REQUIRING [...] CONSULT TO CARE MANAGEMENT IP CONSULT TO METALIZER WOUND CARE IP CONSULT TO HYPERBARIC MEDICINE CONDITION AT DISCHARGE improved Discharge instructions were provided to the patient and caregiver(s). documented in this encounter Discharge Instructions * Patient Instructions* Carmen Louis, R.N. - 08/31/2023 9:44 AM CDT The Senior LinkAge Line?? is a service of the [place] Board on Aging in partnership with [place]'s Area Agencies on Aging. It is a free service of the [facility] that connects older [place] and their families with the help they need. Call the Senior LinkAge Line?? at: [phone] M-F, 8am-4:30pm to connect with specialists that are available to assist you with your specific needsor check out their website at https://www.Press Play.com * Attachments The following attachments cannot be sent through Care Everywhere. * Cefdinir (By mouth) (Monegasque) documented in this encounter Medications at Time [...] prior to catheter removal 20 tablet 08/26/2023 bacitracin 500 unit/gram ointment Apply 1 Application [...] questions or concerns. Pager during business hours: [phone] Pager after hours: [phone] * Jeffery Valdez M.D. - 09/04/2023 10:34 [...] questions or concerns. Pager during business hours: [phone] Pager after hours: [phone] * Jeffery Valdez M.D. - 09/03/2023 4:10 [...] [facility]: Diet: Regular Activity: Ad [...] questions or concerns. Pager during business hours: [phone] Pager after hours: [phone] * Paula Hernandez M.D. - 09/02/2023 6:25 [...] questions or concerns. Pager during business hours: [phone] Pager after hours: [phone] * Michelle Willams, Terri., C.W.C.N. 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 They agree to the plan. The [facility] RN will continue to see the patient, [...] update the patient. Son stated that a Bung Dropper visited the home and will be trying to assist both and patient with cares/coordination. OBJECTIVE Patient is located on [facility] room 111. Referrals were sent to the following agencies: Home Medical Care - Admitted Since 08/30/2023 Service Provider Request Status Selected Services Address Phone Fax Patient Preferred [facility] - [place] Pending - Request Sent N/A [address], [facility] [phone] -- [facility] Home Care Pending - Request Sent N/A [address], [facility] [address] [phone] -- Home Health Care Pending - Request Sent N/A [address], [facility] [address] -- [facility] Pending - Request Sent N/A [address] [facility] [phone] -- [facility] Pending - Request Sent N/A [address] [facility] [address] [phone] -- [facility] Pending - Request Sent N/A [address] [facility] [address], [facility] [address] [phone] -- [facility] Home Health Declined Facility Full N/A [address] [facility] [phone] -- ASSESSMENT / PLAN ASSESSMENT Senior It Security Analyst attempted to contact patient on room phone but was unable to get through. Case Manageras able to reach his son who will update that patient that the preferred home health agency was unable to accept and that referrals would be sent to other home health agencies. Requested services arenursing for wound care and catheter and PT/OT. PLAN Senior It Security Analyst will follow up with referrals. Case Manger [...] questions or concerns. Pager during business hours: [phone] Pager after hours: [phone] * Paula Hernandez M.D. - 08/31/2023 10:45 [...] questions or concerns. Pager during business hours: [phone] Pager after hours: [phone] Associated attestation - Mayur Alvarez M.D. - 08/31/2023 12:14 PM CDT I agree with the Urology Chief Service plan for palliative cystoscopy under anesthesia, clot evacuation, proceed as indicated. We will plan for judicious irrigation given his recent bladder surgery and we will perform a cystogram at the end of the procedure. * Demarco Salazar Pharm.D., R.Ph., [facility] - 08/31/2023 7:19 AM CDT [...] discontinuation of antibiotics. Pedrito Salazar Pharm.D., R.Ph., [facility] Admission Medication History Note Adherence [...] Complete Set By: Demarco Salazar Pharm.D., R.Ph., [facility] at 08/31/2023 7:22 AM Taking? [...] 83 y.o. male transferred to the [facility] ED for further management of gross [...] CBI. He was then transferred to [facility] on 08/12; a CT cystogram was [...] initiated on CBI and transferred to [facility] for further management. On my initial [...] for radiation proctitis SOCIAL HISTORY Lives in [place], [place] OBJECTIVE Vitals Blood pressure 134/84, pulse [...] & Screen Expiration 09/02/2023 23:59 Testing Location [place] Imagin08/30/23 EXAM: US URINARY BLADDER COMPARISON: CT [...] clot obstruction and was transferred to [facility] for further evaluation and management. Urinary bladder ultrasound showing 5 cm clot burden; catheter draining on fast-rate CBI after multiple rounds of hand irrigation. Plan - Continue CBI - Q2h hr hand irrigations - NPO overnight pending am re-evaluation - Hold Plavix, Xarelto for now The above was discussed with Drs. Venegas and Lefty, the chief urology residents communication technician. Please page chief Urology [place] [phone] [place] [phone] afterhours. documented in this encounter Procedure Notes [...] androgen deprivation therapy. 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 No scuba diving experience. Electronic health record [...] 11 Referral Reason: Discharge Planning Primary Language: Monegasque Ethical Hacker Services Used: No Person(s) present during interview: Person(s) Present During Interview: patient and child Kar History of Present Illness #1 Hematuria Social History Support System: spouse, children, and home care staff Primary Caregiver: self and family Finance/Insurance Primary insurance: MEDICARE A AND B Secondary insurance: LieboA benefits: No Advance Directives Legal Decision Maker: Self Advance Directives: N/A Advance Directives Status: N/A OBJECTIVE Baseline Functional Status Baseline Activities of Daily Living Mobility: Requires aide of device Dressing: Independent Feeding: Independent Bathing: Independent Grooming: Independent Toileting: Independent Behavior: Appropriate, Pleasant, Calm, Cooperative, Oriented Communication: Can write, Talks, Understands speaking, Understands Monegasque, Reads Shopping: Needs assistance Medication Management: Independent Housekeeping: Needs assistance Meal Prep: Independent Assistive Devices: Walker - front wheeled, Eyeglasses, Hearing aid(s) Agency Name: [facility] Provided: Intermediate/PT/OT Transportation: Support from family Baseline Services/Resources Primary care clinic and provider: ELSEWHERE, PCP Additional Resources: N/A Anticipated Needs Functional Status: Housekeeping, Shopping, Transportation use (drive car, use taxi/bus), Mobility, Transfer to/from bed, chair, etc., Bathing Assistive Devices: Eyeglasses, Hearing aid(s), Walker - front wheeled Services/Resources: Home health Agency Name: [facility] Provided: Intermediate/PT/OT Anticipated Modifications to the Patient's Home: None Transportation Needs: Support from family Does the patient need discharge transport arranged?: No Anticipated Discharge Destination: [facility]Health [facility] ASSESSMENT / PLAN Assessment: The director product management met with Kalen Vega to discuss his current hospitalization and home goingneeds. The patient was accompanied by son, Kar . The patient was a reliable historian. The role ofRN Senior It Security Analyst was reviewed. The patient reviewed his prior level of care and support system. The patient receives support from his and children. The patient described his living environment as a home with bedroom and bathroom on same floor withstairs to enter with rails. Housekeeping, grocery shopping, meal prep, and other household responsibilities have previously been completed by patient and patient's son. director product management discussed the patient's potential needs at dismissal based on their home setting, previous needs and responsibilities, homebound status, and relevant assessments with the patient. The patient will be safe and supported to return home with [facility] or previous services noted above [...] PICC removal he would not need care. Senior It Security Analyst will clarifywith home health team regarding if [...] and meeting with the patient, the director product management deemed the LACE+/readmission questions were appropriate. [...] readmission could have been prevented. The director product management will share this information with the care team. The patient reports understanding that he will dismiss from the hospital when medically stable. Thefollowing potential barriers to dismissal have been identified: Home Health Care Addendum 1230: Senior It Security Analyst [facility] received the [facility] but declined due to being at capacity. Plan: The patient agrees with the following plan. Patient's anticipated discharge disposition is: Home with Home Healthcare Referrals sent. Transportation upon dismissal will be provided by family--Kar . director product management recommended home health services. director product management provided information regarding the dismissal process and the Senior Linkage Line ([place] Board on [place]) handout. director product management placed or requested the following hospital-based consult orders and/or referrals: None. director product management will follow up with the patient [...] updates and/or transition plan to come. director product management encouraged the patient to reach out [...] CDT Pre-op Diagnosis Hematuria Post-op Diagnosis Hematuria Fire Extinguisher Charger A family services assistant actively participated and was necessary [...] or filling defects. 5. Placement of [address] catheter with 20 cc in [...] The resectoscope was removed and a [address] catheter was placed with 20 [...] secondary to cystostomy closure presenting today from [facility] with concerns for worsening hematuria. He was [...] Pt had a3 way jon placed at [facility], and transferred here because the clots returned. [...] RN, CPN, CCDS, CCS, CRC Clinical Documentation Muck Farmer Query created by: ELMER Barker, RN, CPN, [...] CDT Procedure visit Department of Urology in [place], [place] [address] [place] [address] Burke Strauss M.D. [address] [place] [address] Discharge Disposition: Home or Self Care 12/07/2023 10:30 AM CDT Office Visit Department of Urology in [place], [place] [address] [place] [phone] Burke Strauss M.D. [address] [place] [phone] Discharge Disposition: Home or Self Care Pending [...] CDT Roxy Romero M.D. LAB BLOOD ADD-ON [facility] [address] [place] [address], [facility] [address] [place] [address] * (ABNORMAL) Basic Metabolic Panel (09/05/2023 4:52 AM CDT) [facility] Potassium, S 3.6 3.6 - 5.2 [...] Jakob De Paz M.D. LAB BLOOD ADD-ON [facility] [address] [place] [address], [facility] DTL [facility] [address] [place] [address] * (ABNORMAL) Basic Metabolic Panel (09/04/2023 8:15 [...] CDT Jeffery Valdez M.D. LAB BLOOD ADD-ON [facility] [address] [place] [address], [facility] [address] [place] [address] * (ABNORMAL) CBC without Differential (09/04/2023 8:15 [...] Jeffery Valdez M.D. LAB BLOOD ADD-ON [facility] [address] [place] [address], [facility] [address] [place] [address] * Transfuse Red Blood Cells : (09/04/2023 [...] BANK TEST ORDERABLES Performing Organization Address [facility] Co de Phone Number [facility] [address] [place] [address], [facility] [place] [address] [place] [address] * Heparin Anti-Xa Assay (09/04/2023 7:34 AM [...] BLOOD NON A DD-ON Performing Organization Address [facility] Co de Phone Number [facility] [address] [place] [address], [facility] [address] [place] [address] * (ABNORMAL) CBC without Differential (09/04/2023 7:34 AM CDT) [facility] Hemoglobin 7.7(L) 13.2 - 16.6 g/dL [...] Paula Hernandez M.D. LAB BLOOD ADD-ON [facility] [address] [place] [address], [facility] [address] [place] [address] * Heparin Anti-Xa Assay (09/04/2023 12:30 AM [...] BLOOD NON A DD-ON Performing Organization Address [facility] Co de Phone Number [facility] [address] [place] [address] * Bacterial Culture, Aerobic + Susceptibility, Urine (09/03/2023 10:50 AM CDT) [facility] Urine Culture No growth after 1 day of incubation. 09/04/2023 8:52 AM CDT DTL Urine (Urine, Indwelling Catheter) 09/03/2023 10:50 AM CDT 09/03/2023 11:53 AM CDT Comment:Specimen Source Site : Urine Jeffery Valdez M.D. LAB MICROBIOLOGY - G ENERAL ORDERABLES Performing Organization Address [facility] Co de Phone Number [facility] [address] [place] [address] * (ABNORMAL) CBC without Differential (09/03/2023 3:29 AM CDT) [facility] Hemoglobin 8.0(L) 13.2 - 16.6 g/dL [...] - 9.6 x10(9)/L 09/03/2023 3:51 AM CDT DT Blood (Blood, Venous) 09/03/2023 3:29 AM CDT 09/03/2023 3:45 AM CDT Paula Hernandez M.D. LAB BLOOD ADD-ON Performing Organization Address City/[facility]/ZIP Co de Phone Number [facility] [address] [place] [address] * Heparin Anti-Xa Assay (09/03/2023 3:29 AM [...] BLOOD NON A DD-ON Performing Organization Address City/[facility]/ZIP Co de Phone Number [facility] [address] [facility] [address] [place] [address] * Heparin Anti-Xa Assay (09/02/2023 2:57 AM [...] Alvarez M.D. LAB BLOOD NON A DD-ON [address] [address], [facility] [address] [address] * (ABNORMAL) CBC without Differential (09/01/2023 8:16 PM CDT) [facility] Hemoglobin 8.5(L) 13.2 - 16.6 g/dL [...] LAB BLOOD ADD-ON Performing Organization Address [facility] Co de Phone Number [facility] [address] [place] [address], [facility] [address] [place] [address] * Heparin Anti-Xa Assay (09/01/2023 6:50 PM [...] BLOOD NON A DD-ON Performing Organization Address City/[facility] Co de Phone Number [facility] [address] [place] [address], [facility] [address] [place] [address] * APTT (Activated Partial Thromboplastin Time) (09/01/2023 9:05 AM CDT) Activated Partial Thrombopl Time, P 28 25 - 37 sec 09/01/2023 9:35 AM CDT STMA Blood (Blood, Venous) 09/01/2023 9:05 AM CDT 09/01/2023 9:21 AM CDT Paula Hernandez M.D. LAB BLOOD ADD-ON Performing Organization Address City/[facility]/ZIP Co de Phone Number [facility] [address] [place] [address], [facility] [address] [place] [address] * (ABNORMAL) Basic Metabolic Panel (08/31/2023 9:36 PM CDT) [facility] Potassium, S 4.0 3.6 - 5.2 [...] Paula Hernandez M.D. LAB BLOOD ADD-ON [facility] [address] [place], [place] [id number] [place] [address] [facility] [address] [place] [address] * (ABNORMAL) CBC without Differential (08/31/2023 9:36 [...] M.D. LAB BLOOD ADD-ON Performing Organization Address City/[facility]/ZIP Co de Phone Number [facility] [address] [place], [place] [address] [address] [place] [address] * [place] Fluoro Less Than 1 Hour [...] (ABNORMAL) Hemoglobin (08/31/2023 4:21 AM CDT) Pathologist [facility] Hemoglobin 7.8(L) 13.2 - 16.6 g/dL 08/31/2023 4:47 AM CDT DTL Blood (Blood, Venous) 08/31/2023 4:21 AM CDT 08/31/2023 4:35 AM CDT Kimi Vieira M.D., M.S. LAB BLOO D ADD-ON Performing Organization Address City/[facility]/ZIP Co de Phone Number [facility] [address] DTL [facility] [address] [place] [address] * Type and Screen (with Reflex Antibody [...] BANK TEST ORDERABLES Performing Organization Address [facility] Co de Phone Number [facility] [address] STRM [facility] [address] [place] [address] * Lactate (08/30/2023 9:50 PM CDT) Lactate, P 1.8 0.5 - 2.2 mmol/L 08/30/2023 10:09 PM CDT STMA Blood (Blood, Venous) 08/30/2023 9:50 PM CDT 08/30/2023 9:55 PM CDT Shannan Correa D.O., M.H.A. LAB BLOOD NON ADD-ON [facility] [address] [place] [address], [facility] [address] [place] [address] * (ABNORMAL) Basic Metabolic Panel (08/30/2023 9:49 [...] D.O., M.H.A. LAB BLOOD ADD- ON [facility] [address] [place] [address], [facility] STMA [facility] [address] [place] [address] * (ABNORMAL) CBC with Differential, Blood (08/30/2023 [...] D.O., M.H.A. LAB BLOOD ADD- ON [facility] [address] [place] [address], [facility] STMA [facility] [address] [place] [address] [facility] [address] [place] [address] * DX Chest AP or PA and [...] CDT) Ventricular Rate ECG/Min 145 BPM MUSE MD Interval 136 ms MUSE QRSD Interval 64 ms MUSE QT Interval 260 ms MUSE QTC Interval 403 ms MUSE P Billings 44 degrees MUSE R [place] 9 degrees MUSE T Wave Billings -76 degrees MUSE 08/30/2023 7:44 PM CDT [...] give total of 40 mEq Dissolve per liquid fertilizer servicer recommendations. Do NOT chew or swallow tablet., Monitor the following for replacement: Potassium, Replace Potassium per: Standard Schedule 2337 (Given - Provider: Mayur CampNJonah) rivaroxaban tablet 10 mg (XARELTO) 10 mg, oral, Daily, First dose on Tue09/04/23 at 1030 1117 (Given - Provider: Joy Jackson R.N.) 0911 (Given - Provider: Vanessa Leo R.N.) rosuvastatin tablet 40 mg (CRESTOR) 40 mg, oral, Daily, First dose on Tue08/31/23 at 0900 0949 (Given - Provider: Sarha Morgan R.N.) 0812 (Given - Provider: Tayler Espinoza R.N.) 0911 (Given - Provider: Vanessa Leo R.N.) sennosides-docusate sodium 8.6-50 mg per tablet 1 tablet (SENOKOT-S) 1 tablet, oral, 2 times daily, First dose on Tue08/31/23 at 0900, Do not give if patient has diarrhea. 0949 (Given - Provider: Sarah Morgan R.N.)210 (Not Given - Provider: Gaye Dillard R.N. [...] patency 0950 (Given - Provider: Sarah Morgan R.N.)2110 (Given - Provider: Gaye Dillard R.N.) 0814 [...] 0417 (Rate/Dose Change - Provider: Brittni Howe RJonahNJonah)0722 (New Bag - Provider: Sarah Morgan R.N. [...] Repeat anti-Xa: 6 hours after Heparin resumed 6062 (New Bag - Provider: Sarah Morgan RJonahNJonah - Comment: verified with Tayler MCCULLOUGH) 0125 (Rate/Dose Change - Provider: Gaye Dillard R.N. - Comment: no change)0129 (New Bag - Provider: Talco Dzamalija, R.N.)0717 (Handoff - Provider: Gaye Dillard R.N.)0847 [...] 2256 documented in this encounter Care Teams Pipe Organ Installer Relationship Specialty Start Date End Date Elsewhere, Pcp PCP - General Internal Medicine 08/13/23 documented as of this encounter
--- OUTSIDE RECORDS SUMMARY | 2023-11-15 11:55 | XMS_ITS | Encounter Summary ---
Author Organization [facility] Address [address] [place] [address] Care Team Providers Care Kiln Furniture Saw Tender Name Role Phone Elsewhere, Pcp Primary Care Provider Unavailabl e Reason for Visit * Reason Comments Urinary Problem Rapid Heart Rate Encounter Details Date Type Department Care Team (Latest Contact Info) Description 08/30/2023 7:35 PM CDT - 09/05/2023 4:09 PM CDT Hospital Encounter [facility], [facility], [facility], First Floor [address] [place] [address] Kirstin Hughes M.D. [address] [place] [phone] Mayur Alvarez M.D. [address] [place] [phone] Hematuria (Primary Dx); Tachycardia; Hematuria Gross Discharge [...] [facility] place to live 09/05/2023 Sex [...] PM CDT DISCHARGE SUMMARY BRIEF OVERVIEW Hospital: [facility] [place] Discharge Provider: Mayur Alvarez M.D. Primary Team: [...] HOSPITAL ROMB OR DISCHARGE DISPOSITION Home-Health Care [facility] [6] ACTIVE ISSUES REQUIRING FOLLOW [...] CONSULT TO CARE MANAGEMENT IP CONSULT TO CONSUMER RECRUITER WOUND CARE IP CONSULT TO HYPERBARIC MEDICINE CONDITION AT DISCHARGE improved Discharge instructions were provided to the patient and caregiver(s). documented in this encounter Discharge Instructions * Patient Instructions* Carmen Louis, R.N. - 08/31/2023 9:44 AM CDT The Senior LinkAge Line?? is a service of the [place] [employer] Aging in partnership with [place] Agencies on Aging. It is a free service of the [facility] that connects older [place]ans and their families with the help they need. Call the Senior LinkAge Line?? at: [phone] M-F, 8am-4:30pm to connect with specialists that are available to assist you with your specific needsor check out their website at https://www.[employer] * Attachments The following attachments cannot be sent through Care Everywhere. * Cefdinir (By mouth) (Cape Verdean) documented in this encounter Medications at Time [...] 09/05 Hospital Summary: Diet: Regular Activity: Ad kogn DVT PPX: rivaroxaban GI PPX: None Bowel Regimen: Senna, MiraLax IVF: none Abx/Microbiology: Ucx 09/02 negative Pain Control: Tylenol, 2.5/5 oxycodone Home Meds Resumed: Enzalutamide, metoprolol, mirabegron, rosuvastatin, trospium, rivaroxaban Held Home Meds: none Consults: None Paula Hernandez M.D. 09/05/2023 Please page the Urology Chief Service with questions or concerns. Pager during business hours: [phone] Pager after hours: [phone] * Jeffery Valdez M.D. - 09/04/2023 10:34 [...] questions or concerns. Pager during business hours: [phone] Pager after hours: [phone] * Jeffery Valdez M.D. - 09/03/2023 4:10 [...] consider transitioning him [facility]: Diet: Regular Activity: Ad kong DVT PPX: Holding GI PPX: None Bowel Regimen: Senna, MiraLax IVF: LR 50 Abx/Microbiology: Ucx pending Pain Control: Tylenol, 2.5/5 oxycodone Home Meds Resumed: Enzalutamide, metoprolol, mirabegron, rosuvastatin, trospium Held Home Meds: Plavix, Xarelto Consults: None Jeffery Valdez M.D. 09/03/2023 10:45 AM CDT Please page the Urology Chief Service with questions or concerns. Pager during business hours: [phone] Pager after hours: [phone] * Paula Hernandez M.D. - 09/02/2023 6:25 [...] questions or concerns. Pager during business hours: [phone] Pager after hours: [phone] * Michelle Willams R.N., C.W.C.N. - 09/01/2023 11:[address] [facility] Wound RN consulted to assess [...] Secondary Dressing Status Clean;Dry;Intact Changed by Wound geospatial analyst Ongoing management Nursing;Wound/caravan park and camping ground manager Urine Assessment Urine Color Colorless Hematuria Scale [place] Urine Appearance Clear;Sediment Head to toe skin [...] update the patient. Son stated that a Properties Supervisor visited the home and will be trying to assist both and patient with cares/coordination. OBJECTIVE Patient is located on [facility] room 111. Referrals were sent to the following agencies: Home Medical Care - Admitted Since 08/30/2023 Service Provider Request Status Selected Services Address Phone Fax Patient Preferred [facility] - [place] Pending - Request Sent N/A [address] [facility] [address] [phone] -- [facility] - Home Care Pending - Request Sent N/A [address] [facility] [address] [address] -- Home Health Care Pending - Request Sent N/A [address] [facility] [address] [address] -- [facility] Pending - Request Sent N/A [address] [facility] [phone] -- [facility] Pending - Request Sent N/A [address] [facility] [phone] -- [facility] Pending - Request Sent N/A [address] [facility] [address] [phone] -- [facility] Health Declined Facility Full N/A [address] [facility] [phone] -- ASSESSMENT / PLAN ASSESSMENT Certified Flex Endoscope Reprocessor attempted to contact patient on room phone but was unable to get through. Case Manageras able to reach his son who will update that patient that the preferred home health agency was unable to accept and that referrals would be sent to other home health agencies. Requested services arenursing for wound care and catheter and PT/OT. PLAN Certified Flex Endoscope Reprocessor will follow up with referrals. Case Manger [...] questions or concerns. Pager during business hours: [phone] Pager after hours: [phone] * Paula Hernandez M.D. - 08/31/2023 10:45 [...] questions or concerns. Pager during business hours: [phone] Pager after hours: [phone] Associated attestation - Mayur Alvarez M.D. - 08/31/2023 12:14 PM CDT I agree with the Urology Chief Service plan for palliative cystoscopy under anesthesia, clot evacuation, proceed as indicated. We will plan for judicious irrigation given his recent bladder surgery and we will perform a cystogram at the end of the procedure. * Demarco Salazar, PharmJonahD., R.Ph., [facility] - 08/31/2023 7:19 AM CDT Images [...] discontinuation of antibiotics. Pedrito Salazar Pharm.D., R.Ph., [facility] Admission Medication History Note Adherence issues: [...] Set By: Demarco Salazar Pharm.D., R.Ph., [facility] at 08/31/2023 7:22 AM Taking? Last [...] an 83 y.o. male transferred to the [facility] ED for further management of gross [...] for CBI. He was then transferred to [facility] on 08/12; a CT cystogram was [...] was initiated on CBI and transferred to [facility] for further management. On my initial [...] for radiation proctitis SOCIAL HISTORY Lives in [place], [place] OBJECTIVE Vitals Blood pressure 134/84, pulse [...] & Screen Expiration 09/02/2023 23:59 Testing Location [place] Imagin08/30/23 EXAM: US URINARY BLADDER COMPARISON: CT [...] hematuria, clot obstruction and was transferred to [facility] for further evaluation and management. Urinary bladder ultrasound showing 5 cm clot burden; catheter draining on fast-rate CBI after multiple rounds of hand irrigation. Plan - Continue CBI - Q2h hr hand irrigations - NPO overnight pending am re-evaluation - Hold Plavix, Xarelto for now The above was discussed with Drs. Venegas and Lefty, the chief urology residents on site wastewater systems technician. Please page chief Urology [place] [phone] [place] [phone] afterhours. documented in this encounter Procedure Notes [...] on androgen deprivation therapy. 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 No scuba diving experience. Electronic [...] prolonged inpatient stay, would request transfer to [facility] prior to initiation of hyperbaric [...] for Discharge Planning [facility] Reason: Discharge Planning Primary Language: Cape Verdean Unix Developer Services Used: No Person(s) present during interview: [...] Communication: Can write, Talks, Understands speaking, Understands Cape Verdean, Reads Shopping: Needs assistance Medication Management: Independent Housekeeping: Needs assistance Meal Prep: Independent Assistive Devices: Walker - front wheeled, Eyeglasses, Hearing aid(s) Agency Name: [facility] Provided: Group Home/PT/OT Transportation: Support from family Baseline Services/Resources Primary care clinic and provider: ELSEWHERE, PCP Additional Resources: N/A Anticipated Needs Functional Status: Housekeeping, Shopping, Transportation use (drive car, use taxi/bus), Mobility, Transfer to/from bed, chair, etc., Bathing Assistive Devices: Eyeglasses, Hearing aid(s), Walker - front wheeled Services/Resources: Home health Agency Name: [facility] Provided: Group Home/PT/OT Anticipated Modifications to the Patient's Home: None Transportation Needs: Support from family Does the patient need discharge transport arranged?: No Anticipated Discharge Destination: Home-Health Care [facility] ASSESSMENT / PLAN Assessment: The cherry picker operator met with Kalen Vega to discuss his current hospitalization and home goingneeds. The patient was accompanied by son, Kar . The patient was a reliable historian. The role ofRN Certified Flex Endoscope Reprocessor was reviewed. The patient reviewed his prior level of care and support system. The patient receives support from his and children. The patient described his living environment as a home with bedroom and bathroom on same floor withstairs to enter with rails. Housekeeping, grocery shopping, meal prep, and other household responsibilities have previously been completed by patient and patient's son. cherry picker operator discussed the patient's potential needs at dismissal based on their home setting, previous needs and responsibilities, homebound status, and relevant assessments with the patient. The patient will be safe and supported to return home with [facility] or previous services noted above when [...] PICC removal he would not need care. Certified Flex Endoscope Reprocessor will clarifywith home health team regarding if [...] chart and meeting with the patient, the cherry picker operator deemed the LACE+/readmission questions were appropriate. The [...] current readmission could have been prevented. The cherry picker operator will share this information with the care team. The patient reports understanding that he will dismiss from the hospital when medically stable. Thefollowing potential barriers to dismissal have been identified: Home Health Care Addendum 1230: Certified Flex Endoscope Reprocessor called [facility]. They received the referral but declined due to being at capacity. Plan: The patient agrees with the following plan. Patient's anticipated discharge disposition is: Home with Home Healthcare Referrals sent. Transportation upon dismissal will be provided by family--Kar . cherry picker operator recommended home health services. cherry picker operator provided information regarding the dismissal process and the Senior Linkage Line ([place] Board on Aging) handout. cherry picker operator placed or requested the following hospital-based consult orders and/or referrals: None. cherry picker operator will follow up with the patient to [...] with updates and/or transition plan to come. cherry picker operator encouraged the patient to reach out with [...] CDT Pre-op Diagnosis Hematuria Post-op Diagnosis Hematuria Switchman Supervisor A assistant customer service manager actively participated and was necessary for [...] or filling defects. 5. Placement of [address] catheter with 20 cc in [...] The resectoscope was removed and a [address] catheter was placed with 20 [...] secondary to cystostomy closure presenting today from [facility] with concerns for worsening hematuria. He was [...] 08/30/2023 8:48 AM CDT Pt transferred from [facility] via EMS, pt c/o blocked jon cath that started today. Pt had a right uretal stent exchange and an open bladder repair 08/15/23 and was discharged 08/25. Pt had a3 way jon placed at [facility], and transferred here because the clots returned. [...] RN, CPN, CCDS, CCS, CRC Clinical Documentation Case Manager Query created by: ELMER Barker, RN, [...] CDT Procedure visit Department of Urology in [place], [place] [address] [facility] [address] Burke Strauss M.D. [address] [place] [address] Discharge Disposition: Home or Self Care 12/07/2023 10:30 AM CDT Office Visit Department of Urology in [place], [place] [address] [place] [address] Burke Strauss M.D. [address] [place] [address] Discharge Disposition: Home or Self Care Pending [...] LAB BLOOD ADD-ON Performing Organization Address City/[facility]/ZIP Co de Phone Number [facility] [address] [place] [address], [facility] DTL [facility] [address] [place] [address] * (ABNORMAL) Basic Metabolic Panel (09/05/2023 4:52 AM CDT) Pathologist [facility] Potassium, S 3.6 3.6 - [...] Jakob De Paz M.D. LAB BLOOD ADD-ON [facility] [address] [place] [address], [facility] [address] [place] [address] * (ABNORMAL) Basic Metabolic Panel (09/04/2023 8:15 PM CDT) Pathologist [facility] Potassium, [...] BLOOD ADD-ON [facility] [address] [place] [address], [facility] DTL [facility] [address] [place] [address] * (ABNORMAL) CBC without Differential (09/04/2023 8:15 PM CDT) [facility] Hemoglobin 9.6(L) 13.2 - 16.6 g/dL 09/04/2023 [...] LAB BLOOD ADD-ON [facility] [address] [place] [address], [facility] [address] [place] [address] * Transfuse Red Blood Cells : (09/04/2023 3:30 PM CDT) Jeffery Valdez M.D. BLOOD TRANSFUSION OR DERABLES * Transfuse Red Blood Cells : , 1 Units (09/04/2023 3:30 PM CDT) Jeffery Valdez M.D. BLOOD TRANSFUSION OR DERABLES * Type and Screen (with Reflex Antibody ID) (09/04/2023 10:59 AM CDT) [facility] ABORh O Pos Not applicable 09/04/2023 11:46 AM CDT STRM Antibody Screen Negative Negative 09/04/2023 11:59 AM CDT STRM Type & Screen Expiration 09/07/2023 23:59 09/04/2023 11:46 AM CDT STRM Testing Location [place] DEFAULT 09/04/2023 11:21 AM CDT STRM Blood (Blood, Venous) 09/04/2023 10:59 AM CDT 09/04/2023 11:21 AM CDT Jeffery Valdez M.D. LAB BLOOD BANK TEST ORDERABLES Performing Organization Address City/[facility] Co de Phone Number [facility] [address] [place], [place] [phone] [place] [address] STRM [facility] [address] [place] [address] * Heparin Anti-Xa Assay (09/04/2023 7:34 AM CDT) [facility] Heparin Anti-Xa, P 0.12 IU/mL 2023 [...] BLOOD NON A DD-ON Performing Organization Address [facility] Co de Phone Number [facility] [address] [place] [address], [facility] DTL [facility] [address] [place] [address] * (ABNORMAL) CBC without Differential (09/04/2023 7:34 AM CDT) [facility] Hemoglobin 7.7(L) 13.2 - 16.6 g/dL [...] CDT Paula Hernandez M.D. LAB BLOOD ADD-ON [address] [address], [place] [address] * Heparin Anti-Xa Assay (09/04/2023 12:30 AM CDT) Pathologist [facility] Heparin Anti-Xa, P 0.27 IU/mL 2023 [...] BLOOD NON A DD-ON Performing Organization Address [facility] Co de Phone Number [facility] [address] [place] [address] * Bacterial Culture, Aerobic + Susceptibility, Urine (09/03/2023 10:50 AM CDT) [facility] Urine Culture No growth after 1 day of incubation. 09/04/2023 8:52 AM CDT DTL Urine (Urine, Indwelling Catheter) 09/03/2023 10:50 AM CDT 09/03/2023 11:53 AM CDT Comment:Specimen Source Site : Urine Jeffery Valdez M.D. LAB MICROBIOLOGY - G ENERAL ORDERABLES Performing Organization Address [facility] de Phone Number [facility] [address] [place] [address] * (ABNORMAL) CBC without Differential (09/03/2023 3:29 AM CDT) [facility] Hemoglobin 8.0(L) 13.2 - 16.6 [...] M.D. LAB BLOOD ADD-ON Performing Organization Address [facility] Co de Phone Number [facility] [address] [place] [address] * Heparin Anti-Xa Assay (09/03/2023 3:29 AM [...] BLOOD NON A DD-ON Performing Organization Address [facility] Co de Phone Number [facility] [address] [place], [place] [phone] [place] [address] [facility] [address] [place] [address] * Heparin Anti-Xa Assay (09/02/2023 2:57 AM CDT) Pathologist [facility] Heparin Anti-Xa, P 0.24 IU/mL 2023 4:09 [...] Alvarez M.D. LAB BLOOD NON A DD-ON [place] [address] [place] [address], [facility] [address] [place] [address] * (ABNORMAL) CBC without Differential (09/01/2023 8:16 PM CDT) [facility] Hemoglobin 8.5(L) 13.2 - 16.6 [...] M.D. LAB BLOOD ADD-ON Performing Organization Address [facility] Co de Phone Number [facility] [address] [place], [place] [address] [address] [place] [address] * Heparin Anti-Xa Assay (09/01/2023 6:50 PM [...] BLOOD NON A DD-ON Performing Organization Address [facility] Co de Phone Number [facility] [address] [place] [address], [facility] DTL [facility] [address] [place] [address] * APTT (Activated Partial Thromboplastin Time) (09/01/2023 9:05 AM CDT) Activated Partial Thrombopl Time, P 28 25 - 37 sec 09/01/2023 9:35 AM CDT ST[facility] Blood (Blood, Venous) 09/01/2023 9:05 AM CDT 09/01/2023 9:21 AM CDT Paula Hernandez M.D. LAB BLOOD ADD-ON [facility] [address] [place] [address], [facility] [address] [place] [address] * (ABNORMAL) Basic Metabolic Panel (08/31/2023 9:36 PM CDT) Pathologist [facility] Potassium, [...] LAB BLOOD ADD-ON Performing Organization Address City/[facility]/ZIP Co de Phone Number [facility] [address] [place], [place] [address] [address] [address] * (ABNORMAL) CBC without Differential (08/31/2023 9:36 [...] LAB BLOOD ADD-ON [facility] [address] [place] [address], [facility] [address] [place] [address] * [place] Fluoro Less Than 1 Hour [...] Hemoglobin (08/31/2023 4:21 AM CDT) Pathologist [facility] Hemoglobin 7.8(L) 13.2 - 16.6 g/dL 08/31/2023 4:47 AM CDT DTL Blood (Blood, Venous) 08/31/2023 4:21 AM CDT 08/31/2023 4:35 AM CDT Kimi Vieira M.D., M.S. LAB BLOO D ADD-ON [facility] [place] [address] [place] [address], [facility] [address] [place] [address] * Type and Screen (with Reflex Antibody ID) (08/30/2023 9:50 PM CDT) Pathologist [facility] ABORh [...] BLOOD BANK TEST ORDERABLES Performing Organization Address [facility]/ZIP Co de Phone Number [facility] [address] [place] [address], [facility] STRM [facility] [address] [place] [address] * Lactate (08/30/2023 9:50 PM CDT) Lactate, P 1.8 0.5 - 2.2 mmol/L 08/30/2023 10:09 PM CDT [facility] Blood (Blood, Venous) 08/30/2023 9:50 PM CDT 08/30/2023 9:55 PM CDT Shannan Correa D.O., M.H.A. LAB BLOOD NON ADD-ON Performing Organization Address City/[facility] Co de Phone Number [facility] [address] [place], [place] [phone] [place] [address] STMA [facility] [address] [place] [address] * (ABNORMAL) Basic Metabolic Panel (08/30/2023 9:49 [...] ADD- ON [facility] [address] [place] [address], [facility] [address] [place] [address] * (ABNORMAL) CBC with Differential, Blood (08/30/2023 [...] ADD- ON [facility] [address] [place] [address], [facility] STMA [facility] [address] [place] [phone] DHPM [facility] [address] [place] [address] * DX Chest AP or PA and [...] CDT) Ventricular Rate ECG/Min 145 BPM MUSE ID Interval 136 ms MUSE QRSD Interval 64 ms MUSE QT Interval 260 ms MUSE QTC Interval 403 ms MUSE P [place] 44 degrees MUSE R [place] 9 degrees MUSE T Wave [place] -76 degrees MUSE 08/30/2023 7:44 PM CDT [...] 75 mg, oral, Daily, First dose on 09/05/23 at 0900 Given 09/05/2023 9:11 AM CDT [...] give total of 40 mEq Dissolve per client account assistant recommendations. Do NOT chew or swallow tablet., [...] Sarah Morgan R.N. - Reason: See Provider Order)[id number] (Unheld by provider - Provider: Jeffery Valdez [...] give total of 40 mEq Dissolve per client account assistant recommendations. Do NOT chew or swallow tablet., [...] Heparin resumed 1809 (New Bag - Provider: Mayur NolascoNJonah - Comment: verified with Tayler MCCULLOUGH) 0125 [...] Gaye Dillard R.N.)0938 (Stopped - Provider: Joy aJckson R.N.) NaCl 0.9 % irrigation solution 3,000 [...] As needed, antiXa 0.1-0.19, Starting on [facility] 09/03/23 at 1608, Intensity type: Moderate, Anti-Xa < 0.1: Loading Dose (Units/kg): 60, Anti-Xa 0.1-0.19: Loading Dose (Units/kg): 30, Anti-Xa > 0.19: Loading Dose (Units/kg): 0 Or heparin (porcine) 1,000 unit/mL injection 5,500 Units (CANCELED) 5,500 Units (rounded from 5,544 Units = 60 Units/kg ? 92.4 kg), intravenous, As needed, antiXa less than 0.1, Starting on [facility] 09/03/23 at 1608, Intensity type: Moderate, [...] 2256 documented in this encounter Care Teams Kiln Furniture Saw Tender Relationship Specialty Start Date End Date Elsewhere, Pcp PCP - General Internal Medicine 08/13/23 documented as of this encounter
--- OUTSIDE RECORDS SUMMARY | 2023-11-15 11:55 | XMS_ITS | Encounter Summary ---
Author Organization [facility] Address [address] [place] [address] Care Team Providers Care Collar Turner Name Role Phone Elsewhere, Pcp Primary Care Provider Unavailabl e Encounter Details Date Type Department Care Team (Late st Contact Info) Description 09/06/2023 Clinical Communication [facility] [address] [place] [address] Yasmine Loco Social History Tobacco Use Types Packs/Day Years Used Date Smoking Tobacco: Never Smokeless Tobacco: Never C Utilities Answer Date Recorded In the past 12 months has [facility] [place], gas, oil, or water [employer] threatened to shut off services in your [...] CDT Procedure visit Department of Urology in [place] [address] [place] [address] Burke Strauss M.D. [facility] [place] [address] Discharge Disposition: Home or Self Care 12/07/2023 10:30 AM CDT Office Visit Department of Urology in [place] [address] [place] [address] Burke Strauss M.D. [address] [place] [phone] Discharge Disposition: Home or Self Care documented as of this encounter Visit Diagnoses Diagnosis Hematuria Gross- Primary documented in this encounter Care Teams Collar Turner Relationship Specialty Start Date End Date Elsewhere, Pcp PCP - General Internal Medicine 08/13/23 documented as of this encounter
--- OUTSIDE RECORDS SUMMARY | 2023-11-15 11:56 | XMS_ITS | Encounter Summary ---
Author Organization [facility] Address [address] [place] [address] Care Team Providers Care Boiler Coverer Name Role Phone Elsewhere, Pcp Primary Care Provider Unavailabl e Encounter Details Date Type Department Care Team (Late st Contact Info) Description 08/30/2023 Documentation Department of Urology in [place], [place] [address] [place] [address] Corin Ring M.D. [address] [place] [phone] Social History Tobacco Use Types Packs/Day Years Used Date Smoking Tobacco: Never Smokeless Tobacco: Never [facility] Utilities Answer Date Recorded In the past 12 months has [facility] [employer], gas, oil, or water [employer] threatened to shut off services in your [...] have a [facility] place to live 08/13/2023 Sex and Gender Information Value Date Recorded Sex Assigned at Not on file Gender Identity Not on file Sexual Orientation Not on file documented as of this encounter Plan of Treatment Upcoming Encounters Date Type Department Care Team (Latest Contact Info) Description 12/07/2023 10:15 AM CDT Procedure visit Department of Urology in [place] [address] [place] [address] Burke Strauss M.D. [address] [place] [phone] Discharge Disposition: Home or Self Care 12/07/2023 10:30 AM CDT Office Visit Department of Urology in [place] [address] [place] [address] Burke Strauss M.D. [address] [place] [phone] Discharge Disposition: Home or Self Care documented as of this encounter Visit Diagnoses Not on filedocumented in this encounter Care Teams Boiler Coverer Relationship Specialty Start Date End Date Elsewhere, Pcp PCP - General Internal Medicine 08/13/23 documented as of this encounter
--- OUTSIDE RECORDS SUMMARY | 2023-11-15 11:56 | XMS_ITS | Encounter Summary ---
Author Organization [facility] Address [address] [place] [address] Care Team Providers Care Child Protective Services Specialist Name Role Phone Elsewhere, Pcp Primary [...] living situation today? I have a [facility] place to live 08/13/2023 Sex and Gender Information Value Date Recorded Sex Assigned at Not on file Gender Identity Not on file Sexual Orientation Not on file documented as of this encounter Plan of Treatment Upcoming Encounters Date Type Department Care Team (Latest Contact Info) Description 12/07/2023 10:15 AM CDT Procedure visit Department of Urology in [place] [address] [place] [address] Burke Strauss M.D. [facility] [place] [address] Discharge Disposition: Home or Self Care 12/07/2023 10:30 AM CDT Office Visit Department of Urology in [place] [address] [place] [address] Burke Strauss M.D. 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
--- OUTSIDE RECORDS SUMMARY | 2023-11-15 11:56 | XMS_ITS | Encounter Summary ---
Author Organization [facility] Address [address] [place] [address] Care Team Providers Care Data Entry Supervisor Name Role Phone Elsewhere, Pcp Primary Care Provider Unavailabl e Encounter Details Date Type Department Care Team (Late st Contact Info) Description 08/26/2023 Orders Only Department of Urology in [place], [place] [address] [place] [address] Paula Hernandez M.D. [address] [place] [address] Social History Tobacco Use Types Packs/Day Years Used Date Smoking Tobacco: Never Smokeless Tobacco: Never [facility] Utilities Answer Date Recorded In the past 12 months has [facility] [employer], gas, oil, or water [email or web address] threatened to shut off services in your [...] [facility] 08/13/2023 Sex and Gender Information Value Date Recorded Sex Assigned at Not on file Gender Identity Not on file Sexual Orientation Not on file documented as of this encounter Plan of Treatment Upcoming Encounters Date Type Department Care Team (Latest Contact Info) Description 12/07/2023 10:15 AM CDT Procedure visit Department of Urology in [place] [address] [place] [address] Burke Strauss M.D. [address] [place] [phone] Discharge Disposition: Home or Self Care 12/07/2023 10:30 AM CDT Office Visit Department of Urology in [place], [place] [address] [place] [address] Burke Strauss M.D. [address] [place] [address] Discharge Disposition: Home or Self Care documented as of this encounter Visit Diagnoses Not on filedocumented in this encounter Care Teams Data Entry Supervisor Relationship Specialty Start Date End Date Elsewhere, Pcp PCP - General Internal Medicine 08/13/23 documented as of this encounter
--- OUTSIDE RECORDS SUMMARY | 2023-11-15 11:57 | XMS_ITS | Encounter Summary ---
Author Organization [facility] Address [address] [place] [address] Care Team Providers Care Gi Asst Name Role Phone Elsewhere, Pcp Primary Care Provider Unavailabl e Encounter Details Date Type Department Care Team (Latest Contact Info) Description 08/13/2023 3:42 PM CDT - 08/26/2023 4:11 PM CDT Hospital Encounter [facility], [facility], Sixth Floor [address] [place] [address] Darnell Garcia M.D. [address] [place] [phone] Boubacar Brock M.D. [address] [place] [phone] Decline Functional Status [R53.81] (Primary Dx); Hematuria [R31.9] Discharge Disposition: Home or Self Care Social History Tobacco Use Types Packs/Day Years Used Date Smoking Tobacco: Never Smokeless Tobacco: Never [facility] Utilities Answer Date Recorded In the past [...] [facility] place to live 08/13/2023 Sex [...] CDT DISCHARGE SUMMARY BRIEF OVERVIEW Hospital: [facility] Discharge Provider: Boubacar Brock M.D. Primary Team: [facility] Urology Surgery - Chief Helga - Bob [...] M.D.Wen, Lexiaochuan, M.D.Premo, Hayley, M.D.Botkin, Hannah, M.D. [facility] ROMB OR DISCHARGE DISPOSITION Home or Self Care [1] ACTIVE ISSUES REQUIRING FOLLOW UP OUTPATIENT FOLLOW UP Scheduled Appointments 08/26/2023 1:00 PM [facility] Radiology For appointment details refer to [...] he felt completely obstructed and presented to [place] [facility]. [place] Course Attempted Tabares insertion but bladder irrigation was unsuccessful on multiple attempts. Hung 1U pRBC's. Given some volume and transferred to [facility] ICU ICU Course Urology consulted [...] CONSULT TO NUTRITION SUPPORT IP CONSULT TO CRUSHER TENDER WOUND CARE CONDITION AT DISCHARGE stable Discharge [...] he felt completely obstructed and presented to [place] [facility]. [place] Course Attempted Tabares insertion but bladder irrigation was unsuccessful on multiple attempts. Hung 1U pRBC's. Given some volume and transferred to [facility] ICU ICU Course Urology consulted [...] PM CDT You were discharged from the [facility] Urology Surgery - Chief A - Blue Service. Please identify this service name if you call with questions after hospitalization. * Attachments The following attachments cannot be sent through Care Everywhere. * Bacitracin (On the skin) (Iraqi) * Cefdinir (By mouth) (Iraqi) * Trospium (By mouth) (Iraqi) documented in this encounter Medications at Time [...] Progress Notes * Emeterio Buchanan P.T., D.P.T., [facility] - 08/26/2023 4:27 PM CDT 08/26/23 [id number] Reason Therapy Missed Reason Therapy Missed Receiving other care Attempted to see patient twice today. On 1st attempt patient was receiving blood transfusion and RNwas working on completing cares with him. On 2nd attempt patient was with another provider. * Chary Diamond M.A., O.T., [facility] - 08/26/2023 10:21 AM CDT Occupational Therapy [facility] Inpatient Treatment SUBJECTIVE Patient's Name: Kalen Vega Referring/Attending Provider: Boubacar Brock M.D. Reason for Referral: Occupational Therapy Evaluation and Treatment History of Present Illness: Kalen Vega is a 83 y.o. male who was admitted to [facility] in [place] on 08/13/2023 for Hematuria [R31.9]. Precautions Other Precautions: Abdominal, fall precautions, monitor tachycardia and hypertension Pain Assessment: Pain not reported during session. Subjective Comments: Agreeable to therapy session. Team Communication: The patient's status was discussed and coordination of care occurred with RN, Family/Caregiver, nurse tech Family/Caregiver Present: son and [id number] OBJECTIVE Vital Signs: Vitals not formally assessed during session. No concerns during chart review and the patient had nosigns or symptoms consistent with vital changes during therapy session. Outcome Measures: [facility] Inpatient Short Form: Putting on and taking [...] Clinicians answer the [facility] Inpatient Short Form based on observed patient [...] through pant leg first. - Adaptive Equipment: Manager Biostatistics TOILETING - Assist Level: Maximal Assist - [...] (Edge of bed) - Assist Level: Modified [place] - Equipment: bed rail - Therapist Delivery: assessed, instructed, assisted - Adaptive Equipment: leg fighting vehicle systems maintainer trialed ; however, patient able to move [...] extremity (stiff knee) first. Recommended adaptive equipment: Manager Biostatistics. Toileting - Patient instructed on accurate positioning [...] maximal exertion Handouts provided: Bathroom Safety Equipment [id number], Techniques to Help You Save Energy [id number] Patient was left in bedside chair with [...] health care OBJECTIVE Patient is admitted in [place] 6[facility] -room 121 ASSESSMENT / PLAN ASSURANCE SENIOR MANAGER INSURANCEautomotive general sales manager met with patient and son Kar to inform them of home health care acceptance for PT/OT. Patient's son Kar and [id number] will provide transportation at the time of discharge. PLAN Patient to discharge home with home health care. Home Medical Care - Admitted Since 08/13/2023 Service Provider Selected Services Address Phone Fax Patient Preferred [facility] [address] [facility] [phone] -- Tube Cleaning Operator: Ghazal NURSING: - Complete documentation in the Discharge Navigator including Nursing Report Info and Facility/NextLevel of Care Info - Call report and arrange for the patient's first visit - Send After Visit Summary and required packet of dismissal information with patient, including advance directive. PRIMARY SERVICE: - Please provide a non-[facility] home health order for: physical therapy and [...] be provided by family--patient's son Kar and [id number]-[id number]. 3. filenet p8 developer recommended reaching out to family, friends, and neighbors for assistance. 4. filenet p8 developer provided information regarding the dismissal process. Damaris [...] Reviewed with patient #1 Hematuria Please page [facility] ([phone]) or [facility] ([phone]) Nutrition Support Service pager with questions. * Emeterio Buchanan PMarlon., D.P.T., [facility] - 08/25/2023 9:35 AM CDT Physical Therapy Inpatient Treatment SUBJECTIVE Patient's Name: Kalen Vega Referring/Attending Provider: Boubacar Brock M.D. Reason for Referral: Physical Therapy Evaluate and Treat History of Present Illness: Kalen Vega is a 83 y.o. male who was admitted to [facility] in [place] on 08/13/2023 for Hematuria [R31.9] Precautions Other [...] - 08/25/2023 9:18 AM CDT Occupational Therapy [facility] Inpatient Treatment SUBJECTIVE Patient's Name: Kalen Vega Referring/Attending Provider: Boubacar Brock M.D. Reason for Referral: Occupational Therapy Evaluation and Treatment History of Present Illness: Kalen Vega is a 83 y.o. male who was admitted to [facility] in [place] on 08/13/2023 for Hematuria [R31.9]. Precautions Other Precautions: Abdominal, fall precautions, monitor tachycardia and hypertension Pain Assessment: Pain not reported during session. Subjective Comments: Agreeable to therapy session. Team Communication: The patient's status was discussed and coordination of care occurred with RN, PT OBJECTIVE Vital Signs: Vitals monitored throughout session; within normal ranges. Outcome Measures: [facility] Inpatient Short Form: Putting on and taking [...] Clinicians answer the [facility] Inpatient Short Form based on observed patient [...] including figure four technique. Recommended adaptive equipment: Manager Biostatistics and Sock Aid. Toileting - Patient instructed [...] and modification tools as needed including leg fighting vehicle systems maintainer and/or bed adjustments. Bathroom DME: - Educated [...] in place draining clear yellow urine I/O ([id number]): Fifty-five cc serosanguineous from the drain 1 [...] was subsequently transferred to [facility] 08/12 for difficulty irrigating his catheter [...] 2.5 mg BID eliquis initiated 08/15 per [facility] med curbside recs --transition from eliquis [...] have him follow up with his local student life dean Comorbidities: --history of DVT status post IVC [...] discussed with Dr. Venegas, chief urology resident merchandiser seasonal. Pager during business hours: [phone] Pager after hours: [phone] * Emeterio Buchanan P.T., D.P.T., [facility] - 08/24/2023 10:46 AM CDT Physical Therapy Inpatient Treatment SUBJECTIVE Patient's Name: Kalen Vega Referring/Attending Provider: Boubacar Brock M.D. Reason for Referral: Physical Therapy Evaluate and Treat History of Present Illness: Kalen Vega is a 83 y.o. male who was admitted to [facility] in [place] on 08/13/2023 for Hematuria [R31.9] Precautions Other [...] Clinicians answer the [facility] Inpatient Short Form based on observed patient [...] baseline. PT Goal #2: Patient will perform dau-re-tnqlg transfer with modified independence and least restrictive [...] Total Kcal/day: 1370 based on 84 % Garcia-Guy Non-standard additives: K 80 mEq Phos 30 [...] magnesium, phosphorus tomorrow. #1 Hematuria Please page [facility] ([phone]) or [facility] ([phone]) Nutrition Support Service pager with questions. * [...] catheter in place draining light smith I/O ([id number]): Forty-two cc serosanguineous from the drain 2.2 [...] was subsequently transferred to [facility] 08/12 for difficulty irrigating his catheter [...] 2.5 mg BID eliquis initiated 08/15 per [facility] med curbside recs --transition from eliquis [...] have him follow up with his local student life dean Comorbidities: --history of DVT status post IVC [...] discussed with Dr. Venegas, chief urology resident merchandiser seasonal. Pager during business hours: [phone] Pager after hours: [phone] * Deanne Mike L.G.S.W., M.S.W. - 08/23/2023 11:25 AM CDT SUBJECTIVE Social Work spoke with [facility]. They cannot provide jail at this time. They can provide OT/PT [...] discharge date of 08/24/23-08/26/23. Referrals sent: [facility] [place] [facility] (out of service area) [facility] ASSESSMENT / PLAN ASSESSMENT Patient has robust family support including a son living with him. PLAN Patient desires home health care through [facility]. Social Work will continue to follow to provide support. Social Work will continue to assist with discharge needs. Shorty Sun, M.S.W. 08/23/23 * Jazmine Benítez R.N., C.W.C.N. - 08/23/2023 11:10 AM CDT [facility] Wound RN consulted to assess [...] stent and hematuria who is transferred from [place] ED with 3 days of hematuria and [...] None Unable to Measure Y *Wound Bed Closed;[place];Red Tissue Exposed None Odor None *Exudate Amount [...] 30 minutes > 30 minutes Ongoing management Nursing;Wound/therapeutic dietitian Partial head to toe skin assessment completed [...] AM CDT * Emeterio Buchanan P.T., D.P.T., [facility] - 08/23/2023 11:02 AM CDT Physical Therapy Inpatient Treatment SUBJECTIVE Patient's Name: Kalen Vega Referring/Attending Provider: Boubacar Brock M.D. Reason for Referral: Physical Therapy Evaluate and Treat History of Present Illness: Kalen Vega is a 83 y.o. male who was admitted to [facility] in [place] on 08/13/2023 for Hematuria [R31.9] Precautions Other [...] and O2 flow: Room air Outcome Measures: [facility] Inpatient Short Form: [facility] Basic Mobility (V.2) How much help from [...] 3-5 steps with a railing?: A Lot -[facility] Basic Mobility (V.2) Raw Score: 17 -[facility] Basic Mobility (V.2) Standardized Score: 39.67 Interpretation: Based on scoring guidelines using the raw score value: Those going to home had an average score at or above 18 Those going to facility had an average score at or below 17 Clinicians answer the [facility] Inpatient Short Form based on observed patient [...] baseline. PT Goal #2: Patient will perform wur-cz-ucfln transfer with modified independence and least restrictive [...] D.P.T., [facility] * Demarco Salazar, PharmJonahD., R.Ph., [facility] - 08/23/2023 10:19 AM CDT Pharmacist [...] Total Kcal/day: 1370 based on 84 % Garcia-Guy Non-standard additives: MAX chloride Thiamine 100 mg [...] magnesium, phosphorus tomorrow. #1 Hematuria Please page [facility] ([phone]) or [facility] ([phone]) Nutrition Support Service pager with questions. * Ivy Hernandez O.T. - 08/23/2023 8:30 AM CDT Occupational Therapy [facility] Inpatient Treatment SUBJECTIVE Patient's Name: Kalen Vega Referring/Attending Provider: Boubacar Brock M.D. Reason for Referral: Occupational Therapy Evaluation and Treatment History of Present Illness: Kalen Vega is a 83 y.o. male who was admitted to [facility] in [place] on 08/13/2023 for Hematuria [R31.9]. Precautions Other Precautions: Abdominal, fall precautions, monitor tachycardia and hypertension Pain Assessment: Pain not reported during session. Subjective Comments: Agreeable to therapy session. Team Communication: The patient's status was discussed and coordination of care occurred with RN, PT OBJECTIVE Vital Signs: Vitals monitored throughout session; within normal ranges. Outcome Measures: [facility] Inpatient Short Form: Putting on and taking [...] Clinicians answer the [facility] Inpatient Short Form based on observed patient [...] catheter in place draining clear yellow I/O ([id number]): 73 cc serosanguineous from the drain Seven [...] was subsequently transferred to [facility] 08/12 for difficulty irrigating his catheter [...] 2.5 mg BID eliquis initiated 08/15 per [facility] med curbside recs --transition from eliquis [...] have him follow up with his local student life dean Comorbidities: --history of DVT status post IVC filter, home Xarelto (holding since 08/11) -CAD status post cardiac stents (Plavix held since 08/11) -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 [facility] Summary: Diet: NPO, TPN Activity: Ad [...] discussed with Dr. Venegas, chief urology resident merchandiser seasonal. Pager during business hours: [phone] Pager after hours: [phone] * Chary Diamond M.A., O.T., BCP - [...] OBJECTIVE Patient is anticipated to remain at [facility] for 3-5 days. Referrals sent: [facility] ASSESSMENT / PLAN ASSESSMENT Patient has robust family support including a son living with him. PLAN Patient desires home health care through [facility]. Social Work will continue to follow to [...] was admitted to [facility] in [place] on 08/13/2023 for Hematuria [R31.9] Precautions Other [...] railing?: A Lot [facility] Basic Mobility (V.2) Raw Score: 17 [facility] Basic Mobility (V.2) Standardized Score: 39.67 Interpretation: Based on scoring guidelines using the raw score value: Those going to home had an average score at or above 18 Those going to facility had an average score at or below 17 Clinicians answer the [facility] Inpatient Short Form based on observed patient [...] baseline. PT Goal #2: Patient will perform eow-jz-xwmfi transfer with modified independence and least restrictive [...] Total Kcal/day: 1370 based on 84 % Garcia-Guy Non-standard additives: MAX chloride Thiamine 100 mg [...] place draining light smith colored urine I/O ([id number]): CBI on slow drip 75 cc serosanguineous [...] was subsequently transferred to [facility] 08/12 for difficulty irrigating his catheter [...] 2.5 mg BID eliquis initiated 08/15 per [facility] med curbside recs --transition from eliquis [...] have him follow up with his local student life dean Comorbidities: --history of DVT status post IVC [...] discussed with Dr. Venegas, chief urology resident merchandiser seasonal. Pager during business hours: [phone] Pager after hours: [phone] * Qamar Jim, Pharm.DJonah, R.Ph. - 08/21/2023 [...] place draining clear smith colored urine I/O ([id number]): 1800 cc urine output 75 cc serosanguineous [...] was subsequently transferred to [facility] 08/12 for difficulty irrigating his catheter [...] have him follow up with his local student life dean Comorbidities: --history of DVT status post IVC [...] discussed with Dr. Venegas, chief urology resident merchandiser seasonal. Pager during business hours: [phone] Pager after hours: [phone] * Lizette Harvey M.D. - 08/20/2023 8:08 [...] draining clear thin merlot colored urine I/O ([id number]): 240 cc p.o. intake 760 cc urine [...] was subsequently transferred to [facility] 08/12 for difficulty irrigating his catheter [...] 2.5 mg BID eliquis initiated 08/15 per [facility] med curbside recs --transition from eliquis [...] have him follow up with his local student life dean Comorbidities: --history of DVT status post IVC [...] questions or concerns. Pager during business hours: [phone] Pager after hours: [phone] * Qamar Jim, PharmJonahDJonah, R.Ph. - 08/20/2023 [...] PharmJonahD., R.Ph. * Lisa Seaman, O.T., [facility] - 08/19/2023 2:26 PM CDT Occupational Therapy [facility] Inpatient Treatment SUBJECTIVE Patient's Name: Kalen Vega Referring/Attending Provider: Boubacar Brock M.D. Reason for Referral: Occupational Therapy Evaluation and Treatment History of Present Illness: Kalen Vega is a 83 y.o. male who was admitted to [facility] in [place] on 08/13/2023 for Hematuria [R31.9]. Precautions Other Precautions: Abdominal, fall precautions, monitor tachycardia and hypertension Pain Assessment: Pain not reported during session. Subjective Comments: Patient greeted in chair and agreeable to therapy session. Team Communication: The patient's status was discussed and coordination of care occurred with RN OBJECTIVE Vital Signs: Vitals monitored throughout session; within normal ranges. Outcome Measures: [facility] Inpatient Short Form: Putting on and taking [...] Clinicians answer the [facility] Inpatient Short Form based on observed patient [...] about patient's nutritional care please contact pager [phone] on weekdays or [phone] on weekends/holidays. NUTRITION ASSESSMENT: Mr. Vega is [...] care everywhere) ESTIMATED NEEDS: Total Calorie Needs: 4959-0005 calories/day Method to Estimate Energy Needs: kcal/kg [...] was admitted to [facility] in [place] on 08/13/2023 for Hematuria [R31.9] Precautions Other [...] air Outcome Measures: [facility] Inpatient Short Form: -[facility] Basic Mobility (V.2) How much [...] 3-5 steps with a railing?: A Little -[facility] Basic Mobility (V.2) Raw Score: 18 -[facility] Basic Mobility (V.2) Standardized Score: 41.05 Interpretation: Based on scoring guidelines using the raw score value: Those going to home had an average score at or above 18 Those going to facility had an average score at or below 17 Clinicians answer the -[facility] Inpatient Short Form based on [...] Ongoing PT Goal #2: Patient will perform ebh-jp-bcdks transfer with modified independence and least restrictive [...] in place draining clear pink urine I/O ([id number]): 370 p.o. intake 1 L urine output [...] was subsequently transferred to [facility] 08/12 for difficulty irrigating his catheter [...] 2.5 mg BID eliquis initiated 08/15 per [facility] med curbside recs --transition from eliquis [...] have him follow up with his local student life dean Comorbidities: --history of DVT status post IVC [...] questions or concerns. Pager during business hours: [phone] Pager after hours: [phone] * Lisa Seaman, O.T., [facility] - 08/18/2023 11:15 AM CDT Occupational Therapy [facility] Inpatient Treatment SUBJECTIVE Patient's Name: Kalen Vega Referring/Attending Provider: Boubacar Brock M.D. Reason for Referral: Occupational Therapy Evaluation and Treatment History of Present Illness: Kalen Vega is a 83 y.o. male who was admitted to [facility] in [place] on 08/13/2023 for Hematuria [R31.9]. Precautions Other [...] doffing over it last. Recommended adaptive equipment: Manager Biostatistics and Sock Aid. Patient was left in bedside chair, with nursing/BODY STRAIGHTENER at end of session with call light [...] Provider: oBubacar Brock M.D. Reason for Referral: Physical Therapy Evaluate and Treat History of Present Illness: Kalen Vega is a 83 y.o. male who was admitted to [facility] in [place] on 08/13/2023 for Hematuria [R31.9] Precautions Other [...] 3-5 steps with a railing?: A Little [facility] Basic Mobility (V.2) Raw Score: 18 [facility] Basic Mobility (V.2) Standardized Score: 41.05 Interpretation: Based on scoring guidelines using the raw score value: Those going to home had an average score at or above 18 Those going to facility had an average score at or below 17 Clinicians answer the [facility] Inpatient Short Form based on observed patient [...] following coordination of care occurred with the service station cashier/Caregiver Present: No Patient was left in bedside [...] Progressing PT Goal #2: Patient will perform uki-um-bvllm transfer with modified independence and least restrictive [...] in place draining clear pink urine I/O ([id number]): 1.2 L p.o. intake 1 L urine [...] was subsequently transferred to [facility] 08/12 for difficulty irrigating his catheter [...] diet later today follow up vascular medicine [facility] Summary: Diet: currently limited clears Activity: Ad kong DVT PPX: heparin drip GI PPX: Pantoprazole Bowel Regimen:N/A IVF: none Abx/Microbiology: Ceftriaxone Pain Control: Tylenol, oxycodone 08/18. Scheduled trospium Home Meds Resumed: Metoprolol, tamsulosin, rosuvastatin Held Home Meds: None Consults: None Paula Hernandez M.D. 08/18/2023 6:02 AM CDT Please page the Urology Chief Service with questions or concerns. Pager during business hours: [phone] Pager after hours: [phone] * Tayler Greenwood M.D., M.Ed. - 08/17/2023 [...] the patient follow up with his primary student life dean at discharge we will which we will [...] Lactated Ringer's * Lisa Seaman, O.T., [facility] - 08/17/2023 10:47 AM CDT Occupational Therapy [facility] Inpatient Treatment SUBJECTIVE Patient's Name: Kalen Vega Referring/Attending Provider: Boubacar Brock M.D. Reason for Referral: Occupational Therapy Evaluation and Treatment History of Present Illness: Kalen Vega is a 83 y.o. male who was admitted to [facility] in [place] on 08/13/2023 for Hematuria [R31.9]. Precautions Other [...] Clinicians answer the [facility] Inpatient Short Form based on observed patient [...] in place draining clear pink urine I/O ([id number]): NG tube 200 cc Two hundred sixty-five [...] was subsequently transferred to [facility] 08/12 for difficulty irrigating his catheter [...] questions or concerns. Pager during business hours: [phone] Pager after hours: [phone] * Audi De Luna P.T., D.P.T. - [...] in place draining clear pink urine I/O ([id number]): NG tube 200 cc Two hundred sixty-five [...] was subsequently transferred to [facility] 08/12 for difficulty irrigating his catheter [...] will discuss with Cardiology need for both [facility] and [facility] Summary: Diet: NPO Activity: Ad [...] questions or concerns. Pager during business hours: [phone] Pager after hours: [phone] * Paula Hernandez M.D. - 08/15/2023 9:09 [...] was subsequently transferred to [facility] 08/12 for difficulty irrigating his catheter [...] above was discussed with Dr. Brock, urology sales consultant on-call who is in agreement [...] Family to bring his home enzalutamide from [place] Irvin Franco Pharm.D., R.Ph. * Jakob De [...] was subsequently transferred to [facility] 08/12 for difficulty irrigating his catheter [...] above was discussed with Dr. Brock, urology sales consultant on-call who is in agreement [...] Patient discussed with Dr. Sylvester. Page CCM3 [id number] Carlos Alberto Henson M.D. PGY-1 CCM 3 [...] stent and hematuria who is transferred from [facility] ED with 3 days of [...] him to present to local hospital in [place]. OSH Course: His hemoglobin was in the [...] Insecurity: No Food Insecurity (02/16/2022) [facility] Insecurity Worried About Running Out of Food in the Last Year: 1 Transportation Needs: No Transportation Needs (02/16/2022) Received from [facility], [facility] Transportation Needs Lack of Transportation (Medical): 1 Housing Stability: Low Risk (02/16/2022) Received from [facility], [facility] Housing Stability Unable to Pay for Housing [...] Dr. Sylvester and Dr. Rodriguez. Page CCM3 [id number] Carlos Alberto Henson M.D. PGY-1 CCM 3 [...] As expected PRIMARY PROCEDURALIST FAY Cerna MD [phone] ASSISTANTS none COMPLICATIONS None. DRAINS None. IMPLANTS [...] peripheral vein targets. Ultrasound used for assessment: ClearCycle Fit Provider contacted (include name): Uro Surg [...] 14 -- AST U/L 25 -- Radiology: @[id number]@ Swallow Assessment: No data to display ASSESSMENT / PLAN #1 Hematuria ASSESSMENT Currently we are asked to visit with Mr. Vega for consideration of parenteral nutrition. Nutrition Needs: Height: 180 cm Admission Weight: 91.2 kg (08/13/2023) Current Weight: 90.2 kg BMI (Calculated): 27.8 kg/m?? Total Calorie Needs: 8830-5980 calories/day Method to Estimate Energy Needs: Garcia-Guy ( ) Weight Used for Equation Calculations: [...] on electrolytes Please call NSS pager at [phone] at [facility] or [phone] at [facility] with any additional questions. * Gilbert Johnson [...] STENT EXCHANGE; Surgeon: Boubacar Brock M.D.; Location: [facility] ROMB OR FAMILY HISTORY No family history [...] values in this interval not displayed. Radiology: @[id number]@ Swallow Assessment: No data to display ASSESSMENT / PLAN #1 Hematuria ASSESSMENT Currently we are asked to visit with Mr. Vega for consideration of parenteral nutrition. Nutrition Needs: Height: 180 cm Admission Weight: 91.2 kg (08/13/2023) Current Weight: 90.2 kg BMI (Calculated): 27.8 kg/m?? Total Calorie Needs: 8581-5718 calories/day Method to Estimate Energy Needs: kcal/kg [...] on electrolytes Please call NSS pager at [phone] at [facility] or [phone] at [facility] with any additional questions. BILLING/CODING Total visit [...] stent along with other stents and apparently student life dean in the past I recommended indefinite dual [...] 20 mL/hr, intravenous, Continuous, Frieda Garner APRN, CHILD CARE ASSOCIATE, Last Rate: 20 mL/hr at 08/15/23 1459, [...] but he can discuss this with his student life dean at home. We need to balance transfusion [...] was admitted to [facility] in [place] on 08/13/2023 for Hematuria [R31.9]. Relevant Medical History: Kalen Vega is a 83 y.o. 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 Outcome Measures: -[facility] Inpatient Short Form: -[facility] Basic Mobility (V.2) How much [...] 3-5 steps with a railing?: A Lot -[facility] Basic Mobility (V.2) Raw Score: 17 -[facility] Basic Mobility (V.2) Standardized Score: 39.67 Interpretation: Based on scoring guidelines using the raw score value: Those going to home had an average score at or above 18 Those going to facility had an average score at or below 17 Clinicians answer the -[facility] Inpatient Short Form based on [...] following coordination of care occurred with the service station cashier/Caregiver Present: SonFavio Patient was left in bedside [...] was admitted to [facility] in [place] on 08/13/2023 for Hematuria with cystotomy and [...] Min assist for mobility. Required assist for [id number]-zk-[id number] for force generation and is generally standby [...] Ongoing PT Goal #2: Patient will perform ebg-hv-vtuvt transfer with modified independence and least restrictive [...] from home. PT Goal #4 Status: Ongoing Kaeln Srinivasan Gary has Good rehab potential to [...] Treatment PERTINENT MEDICAL / SURGICAL HISTORY: Kalen Veag has no past medical history on file. Kalen Vega has no past surgical history on file. History of Present Illness: Kalen Vega is a 83 y.o. male who was admitted to [facility] in [place] on 08/13/2023 for Hematuria [R31.9]. Relevant Medical [...] with RN, PT Family/Caregiver Present: Son and [id number]. Home Living and Equipment: Lives with: Spouse/Significant [...] walker, Single point cane Adaptive Equipment Owned: Manager Biostatistics, Long Handled Shoe Horn Other DME Owned: Regular flat bed Prior Level of Function and Mobility: Basic Activities of Daily Living: Independent Instrumental Activities of Daily Living: Required Assistance: Laundry son assists with laundry and cooking Functional Mobility: Independent Driving: Yes Occupational Role: Retired Leisure Interests: watch movies, plays [employer] train, meets friends for breakfast. Patient/Caregiver Goals: [...] Clinicians answer the [facility] Inpatient Short Form based on observed patient [...] all are a great support. 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 Patient expressed understanding and was [...] engaged in conversation with his family when perinatal social worker entered the room. He was [...] to follow [place] [phone] with questions or concerns Sixto Cain M.D. [...] peripheral vein targets. Ultrasound used for assessment: ClearCycle Fit Provider contacted (include name): Uro Surg [...] CDT Patient Transfer Note Patient transferred to: [facility] Room: [facility] Accompanied by: JAMEL Garcia Report called? YES [...] signs? YES * Sixto Teague R.R.TJonah, L.R.T., ANVIL SEATING PRESS OPERATOR-[facility] - 08/14/2023 7:00 AM CDT [...] the last 24hours. Sixto Teague R.R.T., L.R.T., ANVIL SEATING PRESS OPERATOR-[facility] 08/14/23 7:00 AM CDT Electronically signed by Sixto Teague R.R.TJonah, L.R.T., ANVIL SEATING PRESS OPERATOR-[facility] at 08/14/2023 7:02 AM CDT [...] Bladder Spontaneous Post-op Diagnosis Rupture Bladder Spontaneous Developer Analyst A multimedia assistant actively participated and was necessary for [...] The fascia was closed with interrupted and [id number] 0 PDS. Fat was approximated using 3-0 [...] RN, CPN, CCDS, CCS, CRC Clinical Documentation Coil Rewind Machine Operator Query created by: ELMER Barker, [...] stent and hematuria who is transferred from [place] ED with 3 days of hematuria & [...] RN, CPN, CCDS, CCS, CRC Clinical Documentation Coil Rewind Machine Operator Query created by: ELMER Barker, [...] he felt completely obstructed and presented to [place] ED. [place] Course Attempted Tabares insertion but bladder irrigation was unsuccessful on multiple attempts. Hung 1U pRBC's. Given some volume and transferred to [facility] ICU ICU Course Urology consulted [...] CDT Procedure visit Department of Urology in [place], [place] [address] [place] [phone] Burke Srtauss M.D. [address] [place] [address] Discharge Disposition: Home or Self Care 12/07/2023 10:30 AM CDT Office Visit Department of Urology in [place], [place] [address] [place] [phone] Burke Strauss M.D. [address] [place] [address] Discharge Disposition: Home or Self Care Pending [...] tunneled PICC line. NR Paula Hernandez M.D. IM IR PROCEDURES * Transfuse Red Blood Cells : (08/26/2023 11:00 AM CDT) Narrative Authorizing Provider Result Abdifatah Hernandez M.D. BLOOD TRANSFUSION OR DERABLES * Transfuse Red Blood Cells : , 1 Units (08/26/2023 11:00 AM CDT) Narrative Authorizing Provider Result Abdifatah Hernandez M.D. BLOOD TRANSFUSION OR DERABLES * Type and Screen (with Reflex Antibody ID) (08/26/2023 6:50 AM CDT) Pathologist [facility] ABORh [...] ORDERABLES Performing Organization Address [facility]/ZIP Co de Phone Number [facility] [address] [place] [address], [facility] [address] [place] [address] * (ABNORMAL) CBC without Differential (08/26/2023 3:20 [...] Corin Ring M.D. LAB BLOOD ADD-ON [facility] [address] [place], [place] [phone] [place] [address] * Magnesium (08/26/2023 3:20 AM CDT) Magnesium, S 2.1 1.7 - 2.3 mg/dL 08/26/2023 4:04 AM CDT DTL Blood (Blood, Venous) 08/26/2023 3:20 AM CDT 08/26/2023 3:50 AM CDT Boubacar Brock M.D. LAB BLOOD ADD-ON Performing Organization Address City/[facility] [[email or web address]] Co de Phone Number [facility] [address] [place] [address], [address] [address] * (ABNORMAL) Renal Function Panel (08/26/2023 3:20 [...] ADD-ON Performing Organization Address [facility]/ZIP Co de Phone Number [facility] [address] [place] [address], [facility] DTL [facility] [address] [place] [address] * Heparin Anti-Xa Assay (08/26/2023 3:20 AM [...] BLOOD NON ADD -ON Performing Organization Address City/[facility]/ZIP Co de Phone Number [facility] [address] [place] [address], [facility] DTL [facility] [address] [place] [address] * (ABNORMAL) CBC without Differential (08/25/2023 3:24 AM CDT) Pathologist [facility] Hemoglobin 8.3(L) 13.2 - 16.6 g/dL 08/25/2023 [...] Corin Ring M.D. LAB BLOOD ADD-ON [facility] [address] [place] [address], [facility] [address] [place] [address] * (ABNORMAL) Renal Function Panel (08/25/2023 3:24 [...] Boubacar Brock M.D. LAB BLOOD ADD-ON [facility] [address] [place] [address], [facility] [address] [place] [address] * Magnesium (08/25/2023 3:24 AM CDT) Magnesium, S 2.2 1.7 - 2.3 mg/dL 08/25/2023 4:36 AM CDT DTL Blood (Blood, Venous) 08/25/2023 3:24 AM CDT 08/25/2023 4:19 AM CDT Boubacar Brock M.D. LAB BLOOD ADD-ON Performing Organization Address City/[facility]/ZIP Co de Phone Number [facility] [address] [place] [address], [place] [address] * Heparin Anti-Xa Assay (08/25/2023 3:24 AM [...] LAB BLOOD NON ADD-ON Performing Organization Address [facility] [[email or web address]] Co de Phone Number [facility] [address] [place] [address], [address] [address] * (ABNORMAL) CBC without Differential (08/24/2023 5:28 [...] Corin Ring M.D. LAB BLOOD ADD-ON [facility] [address] [place], [place] [phone] [place] [address] [facility] [address] [place] [address] * Magnesium (08/24/2023 5:28 AM CDT) Magnesium, S 2.3 1.7 - 2.3 mg/dL 08/24/2023 6:19 AM CDT DTL Blood (Blood, Venous) 08/24/2023 5:28 AM CDT 08/24/2023 6:00 AM CDT Boubacar Brock M.D. LAB BLOOD ADD-ON Performing Organization Address City/[facility]/ZIP Co de Phone Number [facility] [address] [place], [place] [phone] [place] [address] [facility] [address] [place] [address] * (ABNORMAL) Renal Function Panel (08/24/2023 5:28 [...] CDT Boubacar Brock M.D. LAB BLOOD ADD-ON [facility] [address] [place] [address], [facility] [address] [place] [address] * Heparin Anti-Xa Assay (08/24/2023 5:28 AM [...] LAB BLOOD NON ADD-ON Performing Organization Address City/[facility]/[place] [address] * (ABNORMAL) Potassium (08/23/2023 9:58 PM CDT) Potassium, S 3.5(L) 3.6 - 5.2 mmol/L 08/23/2023 10:45 PM CDT DT Blood (Blood, Venous) 08/23/2023 9:58 PM CDT 08/23/2023 10:30 PM CDT Boubacar Brock M.D. LAB BLOOD ADD-ON Performing Organization Address City/[facility]/[place] [address] * (ABNORMAL) Phosphorus Inorganic (08/23/2023 9:58 PM CDT) Phosphorus (Inorganic), S 2.1(L) 2.5 - 4.5 mg/dL 08/23/2023 10:45 PM CDT DT Blood (Blood, Venous) 08/23/2023 9:58 PM CDT 08/23/2023 10:30 PM CDT Paula Hernandez M.D. LAB BLOOD ADD-ON Performing Organization Address City/[facility]/ZIP Co de Phone Number [facility] [address] [place], [place] [address] [place] [address] * Heparin Anti-Xa Assay (08/23/2023 11:37 AM [...] Brock M.D. LAB BLOOD NON ADD-ON [facility] [address] [place], [place] [phone] [place] [address] * (ABNORMAL) CBC without Differential (08/23/2023 3:42 [...] M.D. LAB BLOOD ADD-ON Performing Organization Address City/[facility]/[place] [address] * Triglycerides (08/23/2023 3:42 AM CDT) Pathologist [facility] Triglycerides 106 mg/dL 08/23/2023 4:50 AM CDT DT Comment: ----REFERENCE VALUE---- Normal: <150 mg/dL Borderline High: 150-199 mg/dL High: 200-499 mg/dL Very High: > or =500 mg/dL Fasting (8 HR or more) Yes 08/23/2023 4:19 AM CDT DTL Blood (Blood, Venous) 08/23/2023 3:42 AM CDT 08/23/2023 4:19 AM CDT Boubacar Brock M.D. LAB BLOOD ADD-ON Performing Organization Address City/[facility]/ZIP Co de Phone Number [address] [place] [address] * Magnesium (08/23/2023 3:42 AM CDT) Pathologist [facility] Magnesium, S 2.2 1.7 - 2.3 mg/dL 08/23/2023 4:50 AM CDT DTL Blood (Blood, Venous) 08/23/2023 3:42 AM CDT 08/23/2023 4:19 AM CDT Boubacar Brock M.D. LAB BLOOD ADD-ON [facility] [address] [place] [address], [facility] [address] [place] [address] * (ABNORMAL) Renal Function Panel (08/23/2023 3:42 [...] ADD-ON Performing Organization Address [facility] [[email or web address]] Co de Phone Number [facility] [address] [place] [address] * Heparin Anti-Xa Assay (08/23/2023 3:41 AM CDT) [facility] Heparin Anti-Xa, P 0.51 IU/mL 2023 4:26 [...] LAB BLOOD NON ADD-ON Performing Organization Address [facility] [[email or web address]] Co de Phone Number [facility] [address] [place] [address], [facility] [address] [place] [address] * Glucose, POCT (08/22/2023 11:38 PM CDT) Pathologist [facility] Glucose, POCT, B 117 70 - 140 mg/dL 08/23/2023 1:06 AM CDT PCLX Site Capillary 08/23/2023 1:06 AM CDT PCLX Last Intake NPO 08/23/2023 1:06 AM CDT PCLX Blood 08/22/2023 11:3 8 PM CDT 08/23/2023 1:06 AM CDT Unknown Provider LAB POCT ORDERABLES- MANUAL POC [facility] [address] [place] [address], [facility] PCLX [facility] POC [address] [place] [address] * Heparin Anti-Xa Assay (08/22/2023 10:14 PM [...] LAB BLOOD NON ADD-ON Performing Organization Address City/[facility]/ZIP Co de Phone Number [facility] [address] [place] [address], [facility] [address] [place] [address] * CT Abdomen Pelvis without IV Contrast [...] Boubacar Brock M.D. LAB BLOOD NON ADD-ON [facility] [employer] [facility] [address] [place] [address], [facility] DTL [facility] [address] [place] [address] * Creatinine, Body Fluid (08/22/2023 3:30 PM [...] transport rates. All other fluids refer to [email or web address].com for further interpretive information. This test has been modified from the process inspector's instructions. Its performance characteristics were determined by [facility] in a manner consistent with CLIA requirements. This test has not been cleared or approved by the U.S. Food and Drug Administration. Fluid Type, Creatinine Fluid, Abdomen 08/22/2023 3:52 PM CDT DTL Fluid (Abdomen) 08/22/2023 3 :30 PM CDT 08/22/2023 6:36 PM CDT Corin Ring M.D. LAB BODY FLUIDS AND STOOLS ORDERABLES Performing Organization Address City/State/[facility] [[email or web address]] Co de Phone Number [facility] [address] [place] [address], [facility] [address] [place] [address] * Transfuse Red Blood Cells : (08/22/2023 [...] M.D., M.S. IMG IR P ROCEDURES * (ABNORMAL) CBC without Differential (08/22/2023 3:27 [...] Latisha Whitehead M.D. LAB BLOOD ADD-ON [facility] [address] [place] [address], [facility] [address] [place] [address] * Type and Screen (with Reflex Antibody [...] M.D. LAB BLOOD BANK T EST ORDERABLES [facility] [address] [place] [address], [place] [facility] [address] [place] [address] * (ABNORMAL) Comprehensive Metabolic Panel (08/22/2023 2:40 AM CDT) Pathologist [facility] Potassium, S 3.2(L) 3.6 - [...] ADD-ON Performing Organization Address [facility] [[email or web address]] Co de Phone Number [facility] [address] [place], [place] [address] [place] [address] * Heparin Anti-Xa Assay (08/22/2023 2:40 AM [...] BLOOD NON AD D-ON Performing Organization Address [facility] [[email or web address]] Co de Phone Number [facility] [address] [place] [address], [facility] [place] [phone] * (ABNORMAL) APTT (Activated Partial Thromboplastin Time) (08/22/2023 2:40 AM CDT) Pathologist [facility] Activated Partial Thrombopl Time, P 64(H) 25 - 37 sec 08/22/2023 3:12 AM CDT [facility] Blood (Blood, Venous) 08/22/2023 2:40 AM CDT 08/22/2023 3:01 AM CDT Latisha Whitehead M.D. LAB BLOOD ADD-ON Performing Organization Address City/[facility]/ZIP Co de Phone Number [facility] [address] [place] [address] * Triglycerides (08/21/2023 7:32 AM CDT) [facility] Triglycerides 98 mg/dL 08/21/2023 9:03 AM CDT DT Comment: ----REFERENCE VALUE---- Normal: <150 mg/dL Borderline High: 150-199 mg/dL High: 200-499 mg/dL Very High: > or =500 mg/dL Fasting (8 HR or more) Unknown 08/21/2023 8:38 AM CDT DT Blood (Blood, Venous) 08/21/2023 7:32 AM CDT 08/21/2023 8:38 AM CDT Lizette [place] M.D. LAB BLOOD ADD-O N [facility] [address] [place] [address], [facility] [address] [place] [address] * Phosphorus Inorganic (08/21/2023 7:32 AM CDT) Pathologist [facility] Phosphorus (Inorganic), S 2.6 2.5 - 4.5 mg/dL 08/21/2023 9:03 AM CDT DT Blood (Blood, Venous) 08/21/2023 7:32 AM CDT 08/21/2023 8:38 AM CDT Lizette [place] M.D. LAB BLOOD ADD-O N [facility] [address] [place] [address] * Magnesium (08/21/2023 7:32 AM CDT) Magnesium, S 2.3 1.7 - 2.3 mg/dL 08/21/2023 9:03 AM CDT DTL Blood (Blood, Venous) 08/21/2023 7:32 AM CDT 08/21/2023 8:38 AM CDT Lizette [place] M.D. LAB BLOOD ADD-O N [facility] [address] [place] [address] * (ABNORMAL) Basic Metabolic Panel (08/21/2023 7:32 [...] Lizette [place] M.D. LAB BLOOD ADD-O N [address] [address], [facility] [place] [address] * (ABNORMAL) CBC without Differential (08/21/2023 7:32 [...] LAB BLOOD ADD-O N Performing Organization Address City/[facility] [[email or web address]] Co de Phone Number [facility] [address] [place], [place] [phone] [place] [address] [address] [place] [address] * Heparin Anti-Xa Assay (08/21/2023 7:32 AM [...] Brock M.D. LAB BLOOD NON ADD-ON [facility] [address] [place], [place] [address] [place] [address] [address] [place] [address] * (ABNORMAL) APTT (Activated Partial Thromboplastin Time) (08/21/2023 7:32 AM CDT) Activated Partial Thrombopl Time, P 49(H) 25 - 37 sec 08/21/2023 8:31 AM CDT DT Blood (Blood, Venous) 08/21/2023 7:32 AM CDT 08/21/2023 8:06 AM CDT Boubacar Brock M.D. LAB BLOOD ADD-ON Performing Organization Address City/[facility] [[email or web address]] Co de Phone Number [facility] [address] [place] [address], [place] DTL [facility] [address] [place] [address] * Place peripherally inserted central catheter (PICC) [...] M.D. PROCEDURE/MINOR SURGICAL ORDERABLES Performing Organization Address [facility] [[email or web address]] Co de Phone Number MMODAL NA * [...] the atrophic right kidney. Lizette [place] M.D. [facility] PROCEDUR ES * (ABNORMAL) Basic Metabolic [...] CDT Paula Hernandez M.D. LAB BLOOD ADD-ON [address] [address], [facility] [address] [address] * (ABNORMAL) CBC without Differential (08/20/2023 3:19 AM CDT) Pathologist [facility] Hemoglobin 8.9(L) 13.2 - 16.6 g/dL 08/20/2023 [...] Paula Hernandez M.D. LAB BLOOD ADD-ON [facility] 200 [place] [address] * (ABNORMAL) APTT (Activated Partial Thromboplastin Time) (08/20/2023 3:19 AM CDT) Activated Partial Thrombopl Time, P 52(H) 25 - 37 sec 08/20/2023 4:33 AM CDT DTL Blood (Blood, Venous) 08/20/2023 3:19 AM CDT 08/20/2023 4:10 AM CDT Boubacar Brock M.D. LAB BLOOD ADD-ON [facility] [address] [place] [address] * (ABNORMAL) APTT (Activated Partial Thromboplastin Time) (08/19/2023 10:57 AM CDT) Activated Partial Thrombopl Time, P 54(H) 25 - 37 sec 08/19/2023 11:44 AM CDT DTL Blood (Blood, Venous) 08/19/2023 10:57 AM CDT 08/19/2023 11:26 AM CDT Boubacar Brock M.D. LAB BLOOD ADD-ON Performing Organization Address City/[facility]/ZIP Co de Phone Number [facility] [address] [place] [address] * (ABNORMAL) APTT (Activated Partial Thromboplastin Time) (08/19/2023 4:51 AM CDT) [facility] Activated Partial Thrombopl Time, P 59(H) 25 - 37 sec 08/19/2023 5:53 AM CDT DTL Blood (Blood, Venous) 08/19/2023 4:51 AM CDT 08/19/2023 5:36 AM CDT Boubacar Brock M.D. LAB BLOOD ADD-ON Performing Organization Address City/[facility]/ZIP Co de Phone Number [facility] [address] 200 [place] [address] * (ABNORMAL) APTT (Activated Partial Thromboplastin Time) (08/18/2023 10:03 PM CDT) [facility] Activated Partial Thrombopl Time, P 63(H) 25 - 37 sec 08/18/2023 10:41 PM CDT DTL Blood (Blood, Venous) 08/18/2023 10:03 PM CDT 08/18/2023 10:19 PM CDT Boubacar Brock M.D. LAB BLOOD ADD-ON [facility] [address] 200 [place] [address] * (ABNORMAL) APTT (Activated Partial Thromboplastin Time) (08/18/2023 2:50 PM CDT) [facility] Activated Partial Thrombopl Time, P 64(H) 25 - 37 sec 08/18/2023 3:25 PM CDT DTL Blood (Blood, Venous) 08/18/2023 2:50 PM CDT 08/18/2023 3:07 PM CDT Boubacar Brock M.D. LAB BLOOD ADD-ON [facility] [address] 200 [place] [address] * (ABNORMAL) APTT (Activated Partial Thromboplastin Time) (08/18/2023 6:42 AM CDT) Pathologist [facility] Activated Partial Thrombopl Time, P 61(H) 25 - 37 sec 08/18/2023 7:28 AM CDT DT Blood (Blood, Venous) 08/18/2023 6:42 AM CDT 08/18/2023 7:04 AM CDT Boubacar Brock M.D. LAB BLOOD ADD-ON Performing Organization Address City/[facility]/ZIP Co de Phone Number [facility] [address] [place], [place] [address] [place] [address] 200 [place] [address] * (ABNORMAL) APTT (Activated Partial Thromboplastin Time) (08/17/2023 11:04 PM CDT) Pathologist [facility] Activated Partial Thrombopl Time, P 40(H) 25 - 37 sec 08/17/2023 11:46 PM CDT DTL Blood (Blood, Venous) 08/17/2023 11:04 PM CDT 08/17/2023 11:31 PM CDT Boubacar Brock M.D. LAB BLOOD ADD-ON [facility] [address] 200 [facility] [place] [address] * US Lower Extremity Veins Bilateral (08/17/2023 [...] and management can be found on the [employer] site. Link [email or web address] Findings discussed with ??Tayler Greenwood, ?? ([id number]) on 08/17/2023 7:11 PM. Procedure Note Jj [...] management can be found on theAskMayoExpert site. [email or web address]/clinical-[email or web address]/[email or web address]/[email or web address] [email or web address] Findings discussed with Tayler Greenwood MD ([id number]) on 08/17/2023 7:11 PM. IMPRESSION: 1. 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 2. No acute left-sided DVT. Corin Ring M.D. [facility] [place] PROCEDURES * APTT (Activated Partial Thromboplastin Time) (08/17/2023 4:56 PM CDT) Activated Partial Thrombopl Time, P 29 25 - 37 sec 08/17/2023 5:10 PM CDT ST[facility] Blood (Blood, Venous) 08/17/2023 4:56 PM CDT 08/17/2023 5:00 PM CDT Paula Hernandez M.D. LAB BLOOD ADD-ON Performing Organization Address [facility] [[email or web address]] Co de Phone Number [facility] [address] [place] [address], [facility] [address] [place] [address] * ECG 12 Lead (08/16/2023 9:43 PM CDT) Pathologist [facility] Ventricular Rate ECG/Min 134 BPM MUSE SC Interval 136 ms MUSE QRSD Interval 76 ms MUSE QT Interval 298 ms MUSE QTC Interval 445 ms MUSE P [place] 29 degrees MUSE R [place] -6 degrees MUSE T Wave [place] 21 degrees MUSE 08/16/2023 9:43 PM CDT [...] Azar M.D. ECG ORDERABLES Performing Organization Address [facility] de Phone Number MUSE NA * (ABNORMAL) [...] CDT Geneva Azar M.D. LAB BLOOD ADD-ON [facility] [address] [address], [facility] 200 [place] [address] * (ABNORMAL) Basic Metabolic Panel (08/16/2023 9:40 [...] Geneva Azar M.D. LAB BLOOD ADD-ON [facility] 200 [place] [address], [facility] 200 [place] [address] * Transfuse Red Blood Cells : (08/16/2023 12:04 PM CDT) Corin Ring M.D. BLOOD TRANSFUSION OR DERABLES * Transfuse Red Blood Cells : , 1 Units (08/16/2023 12:04 PM CDT) Corin Ring M.D. BLOOD TRANSFUSION OR DERABLES * (ABNORMAL) Basic Metabolic Panel (08/16/2023 3:10 AM CDT) [facility] Potassium, S 4.2 3.6 - [...] Paula Hernandez M.D. LAB BLOOD ADD-ON [facility] [address] [place] [address], [facility] [address] [place] [address] * (ABNORMAL) CBC without Differential (08/16/2023 3:10 AM CDT) Pathologist [facility] Hemoglobin 8.1(L) 13.2 - 16.6 g/dL 08/16/2023 [...] CDT Paula Hernandez M.D. LAB BLOOD ADD-ON [facility] [address] [place] [address], [facility] DTL [facility] [address] [place] [address] * (ABNORMAL) CBC with Differential, Blood (08/15/2023 [...] Alberto Henson M.D. LAB BLOOD ADD-ON [facility] [address] [place] [address], [facility] DTL [facility] [address] [place] [address] [facility] [address] [place] [address] * DX Abdomen 1 View (08/15/2023 1:19 [...] 08/15/2023 12:03 PM CDT Rae Gonzalez APRN, CHILD CARE ASSOCIATE, DNAP LAB BLOO D NON ADD-ON [facility] [address] [place] [address], [facility] [address] [place] [address] * Lactate, B - Intra-op (08/15/2023 11:56 AM CDT) Lactate, B 1.1 0.5 - 2.2 mmol/L 08/15/2023 12:06 PM CDT [facility] Blood (Blood, Venous) 08/15/2023 11:56 AM CDT 08/15/2023 12:03 PM CDT Hayde Song M.D. LAB BLOOD NON ADD-O N Performing Organization Address City/[facility]/ZIP Co de Phone Number [facility] [address] [place] [address], [facility] [address] [place] [address] * (ABNORMAL) Glucose, Whole Blood (08/15/2023 11:56 AM CDT) Glucose 144(H) 70 - 140 mg/dL 08/15/2023 12:06 PM CDT [facility] Blood (Blood, Arterial Line) 08/15/2023 11:56 AM CDT 08/15/2023 12:03 PM CDT Hayde Song M.D. LAB BLOOD ADD-ON [facility] [address] [place] [address], [facility] [address] [place] [address] * Potassium, Blood (08/15/2023 11:56 AM CDT) Potassium, B 4.3 3.6 - 5.2 mmol/L 08/15/2023 12:07 PM CDT [facility] Blood (Blood, Arterial Line) 08/15/2023 11:56 AM CDT 08/15/2023 12:03 PM CDT Hayde Song M.D. LAB BLOOD NON ADD-O N [facility] [address] [place] [address], [facility] 200 [place] [address] * Sodium, B (08/15/2023 11:56 AM CDT) Sodium, B 135 135 - 145 mmol/L 08/15/2023 12:06 PM CDT [facility] Blood (Blood, Arterial Line) 08/15/2023 11:56 AM CDT 08/15/2023 12:03 PM CDT Hayde Song M.D. LAB BLOOD NON ADD-O N Performing Organization Address City/[facility]/ZIP Co de Phone Number [facility] [address] [place] [address], [facility] 200 [place] [address] * (ABNORMAL) Calcium, Ionized (08/15/2023 11:56 AM CDT) Calcium, Ionized, B 4.53(L) 4.65 - 5.30 mg/dL 08/15/2023 12:07 PM CDT [facility] Blood (Blood, Arterial Line) 08/15/2023 11:56 AM CDT 08/15/2023 12:03 PM CDT Hayde Song M.D. LAB BLOOD NON ADD-O N [facility] 200 [place], [place] [address] STMA [facility] 200 [place] [address] * (ABNORMAL) Blood Gas with Coox, Arterial [...] M.D. LAB BLOOD NON ADD-O N [facility] 200 [place] [address], [facility] 200 [place] [id number] * FL Fluoro Less Than 1 Hour (08/15/2023 11:22 AM CDT) Narrative 152 HOS LOS RST - 08/15/2023 11:24 AM CDT This exam does not require a radiologist review or interpretation. Please refer to the patient's medical record on this date for clinical details. Boubacar Brock M.D. IMG FLUOROSCOPY PROC EDURES 152 [facility] * Patient Status (08/15/2023 10:28 AM CDT) Temperature 36.1 37.0 deg C 08/15/2023 10:28 AM CDT ST[facility] FIO2 0.55 0.21=AIR 08/15/2023 10:28 AM CDT [facility] Blood 08/15/2023 10:2 8 AM CDT 08/15/2023 10:28 AM CDT Rae Gonzalez DIRECTOR COST, CHILD CARE ASSOCIATE, DNAP LAB BLOO D NON ADD-ON Performing Organization Address City/[facility]/ZIP Co de Phone Number [facility] [address] [place] [address] * Lactate, B - Intra-op (08/15/2023 10:28 AM CDT) Pathologist [facility] Lactate, B 1.1 0.5 - 2.2 mmol/L 08/15/2023 10:30 AM CDT [facility] Blood (Blood, Venous) 08/15/2023 10:28 AM CDT 08/15/2023 10:28 AM CDT Hayde Song M.D. LAB BLOOD NON ADD-O N Performing Organization Address City/[facility]/ZIP Co de Phone Number [facility] [address] 200 [place] [address] * Glucose, Whole Blood (08/15/2023 10:28 AM CDT) Glucose 134 70 - 140 mg/dL 08/15/2023 10:30 AM CDT [facility] Blood (Blood, Arterial Line) 08/15/2023 10:28 AM CDT 08/15/2023 10:28 AM CDT Hayde Song M.D. LAB BLOOD ADD-ON [facility] [address] [place] [address], [facility] [address] [place] [address] * Potassium, Blood (08/15/2023 10:28 AM CDT) Potassium, B 4.1 3.6 - 5.2 mmol/L 08/15/2023 10:31 AM CDT [facility] Blood (Blood, Arterial Line) 08/15/2023 10:28 AM CDT 08/15/2023 10:28 AM CDT Hayde Song M.D. LAB BLOOD NON ADD-O N [facility] [address] [place] [address], [facility] [address] [place] [address] * Sodium, B (08/15/2023 10:28 AM CDT) Sodium, B 135 135 - 145 mmol/L 08/15/2023 10:30 AM CDT [facility] Blood (Blood, Arterial Line) 08/15/2023 10:28 AM CDT 08/15/2023 10:28 AM CDT Hayde Song M.D. LAB BLOOD NON ADD-O N [facility] [address] [place] [address], [facility] [address] [place] [address] * (ABNORMAL) Calcium, Ionized (08/15/2023 10:28 AM CDT) Calcium, Ionized, B 4.25(L) 4.65 - 5.30 mg/dL 08/15/2023 10:31 AM CDT [facility] Blood (Blood, Arterial Line) 08/15/2023 10:28 AM CDT 08/15/2023 10:28 AM CDT Hayde Song M.D. LAB BLOOD NON ADD-O N [facility] [address] [place] [address], [facility] [address] [place] [address] * (ABNORMAL) Blood Gas with Coox, Arterial [...] M.D. LAB BLOOD NON ADD-O N [facility] 200 [place] [address], [facility] STMA [facility] 200 [place] [address] * Bacteria / Yomaira Culture, Blood #2 (08/15/2023 3:33 AM CDT) Pathologist [facility] Bacteria/Leyla da Culture, Blood No growth after 5 days of incubation. 08/20/2023 6:02 AM CDT DTL Blood (Blood, Peripheral Draw) 08/15/2023 3:33 AM CDT 08/15/2023 5:58 AM CDT Comment:Specimen Source Site : Blood Narrative [facility] - 08/20/2023 6:02 AM CDT Received Bactec aerobic and Bactec anaerobic bottles Carlos Alberto Henson M.D. LAB MICROBIOLOGY - G ENERAL ORDERABLES [facility] 200 [place] [address], [facility] [place] [address] * (ABNORMAL) Basic Metabolic Panel (08/15/2023 3:31 [...] M.D. LAB BLOOD ADD-ON Performing Organization Address City/[facility]/[place] [address] * Bacteria / Yomaira Culture, Blood #1 (08/15/2023 3:31 AM CDT) [facility] Bacteria/Leyla da Culture, Blood No growth after 5 days of incubation. 08/20/2023 6:02 AM CDT DTL Blood (Blood, Peripheral Draw) 08/15/2023 3:31 AM CDT 08/15/2023 5:59 AM CDT Comment:Specimen Source Site : Blood Carlos Alberto Henson M.D. LAB MICROBIOLOGY - G ENERAL ORDERABLES Performing Organization Address City/[facility]/ZIP Co de Phone Number [facility] 200 [place] [address], [place] [address] * (ABNORMAL) CBC with Differential, Blood (08/15/2023 3:30 AM CDT) Pathologist [facility] Hemoglobin 9.5(L) 13.2 - 16.6 [...] Alberto Henson M.D. LAB BLOOD ADD-ON [facility] [address] [place] [address], [facility] DTL [facility] [address] [place] [address] DHPM [facility] [address] * (ABNORMAL) CBC with Differential, Blood (08/14/2023 [...] Carlos Alberto Henson M.D. LAB BLOOD ADD-ON [facility] - [facility] [address] [place] [address], [place] STMA [facility] [address] [place] [address] D[facility] [address] [place] [address] * Transfuse Red Blood Cells : , 2 Units (08/14/2023 6:55 PM CDT) Carlos Albertolindsay Masseyi M.Fadi BLOOD TRANSFUSION OR DERABLES * Transfuse Red Blood Cells : (08/14/2023 6:55 PM CDT) Carlos Alberto Henson M.D. BLOOD TRANSFUSION OR DERABLES * Transfuse Red Blood Cells : (08/14/2023 3:40 PM CDT) Carlos Alberto Henson M.D. BLOOD TRANSFUSION OR DERABLES * (ABNORMAL) CBC with Differential, Blood (08/14/2023 3:18 AM CDT) [facility] Hemoglobin 7.6(L) 13.2 - 16.6 g/dL 08/14/2023 3:23 AM CDT [facility] Hematocrit 23.0(L) 38.3 - 48.6 % 08/14/2023 [...] - 6.45 x10(9)/L 08/14/2023 3:23 AM CDT [facility] Lymphocytes 0.36(L) 0.95 - 3.07 x10(9)/L 08/14/2023 3:23 AM CDT [facility] Monocytes 0.98(H) 0.26 - 0.81 x10(9)/L 08/14/2023 3:23 AM CDT [facility] Eosinophils <0.03 0.03 - 0.48 x10(9)/L 08/14/2023 3:23 AM CDT [facility] Basophils <0.03 0.01 - 0.08 x10(9)/L 08/14/2023 3:23 AM CDT [facility] Blood (Blood, Venous) 08/14/2023 3:18 AM CDT 08/14/2023 3:21 AM CDT Carlos Alberto Henson M.D. LAB BLOOD ADD-ON [facility] 200 [place] [address], [facility] STMA [facility] [address] [place] [address] [facility] 200 [place] [address] * (ABNORMAL) Basic Metabolic Panel (08/14/2023 3:18 [...] M.D. LAB BLOOD ADD-ON Performing Organization Address City/[facility]/ZIP Co de Phone Number [facility] [address] [place] [address], [facility] [address] [place] [address] * Type and Screen (with Reflex Antibody ID) (08/13/2023 7:35 PM CDT) Pathologist [facility] ABORh [...] ORDERABLES Performing Organization Address [facility]/ZIP Co de Phone Number [facility] [address] [place] [address], [facility] 200 [place] [address] * (ABNORMAL) Bacteria / Yomaira Culture, Blood #1 (08/13/2023 7:35 PM CDT) [facility] Bacteria/Cand jessica Culture, Blood ESCHERICHIA COLI Growth after 11 Hours (A) 08/16/2023 11:17 AM CDT DTL Comment: 3 of 3 Bottles, Susceptibilities performed on another specimen [id number] Blood (Blood, Peripheral Draw) 08/13/2023 7:35 PM CDT 08/13/2023 8:15 PM CDT Comment:Specimen Source Site : Blood Carlos Alberto Hesnon M.D. LAB MICROBIOLOGY - G ENERAL ORDERABLES [facility] [address] [place] [address], [facility] DTL [facility] [address] [place] [address] * ECG 12 Lead (08/13/2023 7:02 PM CDT) Ventricular Rate ECG/Min 128 BPM MUSE SC Interval 138 ms MUSE QRSD Interval 64 ms MUSE QT Interval 304 ms MUSE QTC Interval 443 ms MUSE P [place] 45 degrees MUSE R [place] 34 degrees MUSE T Wave [place] 46 degrees MUSE 08/13/2023 7:02 PM CDT 08/13/2023 7:13 PM CDT Impressions MUSE - 08/13/2023 7:13 PM CDT Sinus tachycardia Otherwise normal ECG No previous ECGs available Reviewed by BETTY Walton Narrative Procedure Note Lucas Lee M.D. - 08/13/2023 IMPRESSION: Sinus tachycardia Otherwise normal ECG No previous ECGs available Reviewed by BETTY Walton Toby Wright ECG ORDERABLES Performing Organization Address City/[facility] [[email or web address]] Co de Phone Number MUSE NA * [...] Source Site : Blood Narrative [facility] - 08/16/2023 11:17 AM CDT Received [...] ORDERABLES Performing Organization Address [facility]/[place] [address] * Magnesium (08/13/2023 5:27 PM CDT) Magnesium, S 1.9 1.7 - 2.3 mg/dL 08/13/2023 6:12 PM CDT DTL Blood (Blood, Venous) 08/13/2023 5:27 PM CDT 08/13/2023 5:58 PM CDT Carlos Alberto Henson M.D. LAB BLOOD ADD-ON Performing Organization Address [facility] [[email or web address]] [place] [address] * (ABNORMAL) Hepatic Function Panel (08/13/2023 5:27 [...] Alberto Henson M.D. LAB BLOOD ADD-ON [facility] [address] [place] [address], [place] [facility] [address] [place] [address] * (ABNORMAL) Basic Metabolic Panel (08/13/2023 5:27 [...] ADD-ON Performing Organization Address [facility] [[email or web address]] Co de Phone Number [facility] [address] [place] [address], [facility] 200 [place] [address] * Prothrombin Time (PT) (08/13/2023 5:27 PM CDT) [facility] Prothrombin Time, P 12.4 9.4 [...] ADD-ON Performing Organization Address [facility] [[email or web address]] Co de Phone Number [facility] [address] [place] [address], [facility] 200 [place] [address] * (ABNORMAL) CBC with Differential, Blood (08/13/2023 5:27 PM CDT) [facility] Hemoglobin 10.0(L) 13.2 - 16.6 g/dL [...] Alberto Henson M.D. LAB BLOOD ADD-ON [facility] [address] [place] [address], [facility] STMA [facility] 200 [place] [address] [facility] 200 [place] [address] * (ABNORMAL) Dipstick, Urine (08/13/2023 5:07 PM [...] M.D. LAB URINE ORDERABLES Performing Organization Address [facility]/ZIP Co de Phone Number [facility] [address] 200 [place] [address] * Osmolality, Urine (08/13/2023 5:07 PM CDT) Osmolality, U 351 150 - 1150 mOsm/kg 08/13/2023 7:46 PM CDT DTL Urine 08/13/2023 5:07 PM CDT 08/13/2023 5:45 PM CDT Carlos Alberto Henson M.D. LAB URINE ORDERABLES Performing Organization Address [facility] [[email or web address]] Co de Phone Number [facility] 200 [place] [address], [place] [address] * (ABNORMAL) Microscopic Manual (08/13/2023 5:07 PM [...] M.D. LAB URINE ORDERABLES Performing Organization Address City/[facility]/ZIP Co de Phone Number [facility] 200 [place] [address] * pH, Random, Urine (08/13/2023 5:07 PM CDT) pH, Random, U 7.0 4.5 - 8.0 08/13/2023 7:46 PM CDT DTL Urine 08/13/2023 5:07 PM CDT 08/13/2023 5:45 PM CDT Carlos Alberto Henson M.D. LAB URINE ORDERABLES Performing Organization Address [facility] [[email or web address]] Co de Phone Number [facility] [address] [place] [address] * (ABNORMAL) Bacterial Culture, Aerobic + Susceptibility, [...] Carlos Alberto Henson M.D. LAB MICROBIOLOGY - [facility] ORDERABLES [facility] [address] [place] [address], [facility] [address] [place] [address] * (ABNORMAL) Urinalysis, with Microscopic: Urine, Midstream [...] CDT DTL Predicted 24 [place] U [address](H) <229 mg/24 h 08/13/2023 8:50 PM CDT DTL Predicted Range [id number] mg/24 h 08/13/2023 8:50 PM CDT DTL Comment Micro done on <2.5 mL 08/13/2023 7:55 PM CDT DTL Urine (Urine, Midstream) 08/13/2023 5:07 PM CDT 08/13/2023 5:44 PM CDT Carlos Alberto Henson M.D. LAB URINE ORDERABLES [facility] [address] [place] [address], [facility] [address] [place] [address] * Interpretation of Outside CT Abdomen and [...] PM CDT 2 g 200 mL/hr New 08/20/2023 9:08 PM CDT 2 g 200 [...] supply. 08/17/23: Id'ed by [facility]. [facility] Rx# [id number], filled 07/22/23. HAZARDOUS - Handle with care. Swallow whole. Do NOT crush, chew or open capsule. Given 08/26/2023 9:12 AM CDT 120 mg Given 08/25/2023 9:08 AM CDT 120 mg Given 08/24/2023 9:12 AM CDT 120 mg fat emulsion swx-swz-[id number] & fish oil infusion 50 g (SMOFlipid) [...] Lactated Ringer's 1.5 mL/kg/hr ? 75 kg [place] weight (112.5 mL/hr, rounded to 113 mL/hr), intravenous, Continuous, Starting on Tue08/22/23 at 1030, Conditional Phase Pre-Gastrografin Administration. (Rate = 1.5 mL/kg/hr ideal body weight) Lactated Ringer's 0.75 mL/kg/hr ? 75 kg [place] weight (56.25 mL/hr, rounded to 56.3 mL/hr), [...] PM CDT 10 mEq 100 mL/hr New 08/22/2023 12:11 PM CDT 10 mEq 100 [...] 5:16 PM CDT 10 mEq 100 mL/hr New 08/23/2023 4:30 PM CDT 10 mEq 100 [...] mg, gastric tube, Daily, First dose on 08/21/23 at 0900, Do NOT crush or chew. [...] See R.N.)1750 (Given - Provider: Antonia Salazar RJonahNJonah) 0627 (Given - Provider: Edith Simental RJonahNJonah)1600 (Due) clopidogreL tablet 75 mg (PLAVIX) 75 mg, oral, Daily, First dose on Tue08/26/23 at 0900 0915 (Given - Provider: Zixi Valdez, R.N.) docusate sodium liquid 100 mg (COLACE) [...] supply. 08/17/23: Id'ed by [facility]. [facility] Rx# [id number], filled 07/22/23. HAZARDOUS - Handle with care. Swallow whole. Do NOT crush, chew or open capsule. 911 (Given - Provider: Tayler Forrest R.N. - Comment: Pat Murray, -2nd RN) 907 (Given - Provider: Tayler Forrest R.N. - Comment: Pt 's own med from home) 911 (Given - Provider: Lupe Valdez R.N.) fat emulsion cxr-juu-gyjat & fish oil infusion 50 g (SMOFlipid) [...] Valdez R.N. - Comment: Verified with JAMEL Sharma)3044 (Stopped - Provider: Lupe Valdez R.N.) Lactated Ringer's 1.5 mL/kg/hr ? 75 kg [place] weight (112.5 mL/hr, rounded to 113 mL/hr), intravenous, Continuous, Starting on Tue08/22/23 at 1030, Conditional Phase Pre-Gastrografin Administration. (Rate = 1.5 mL/kg/hr ideal body weight) Lactated Ringer's 0.75 mL/kg/hr ? 75 kg [place] weight (56.25 mL/hr, rounded to 56.3 mL/hr), [...] 1547 documented in this encounter Care Teams Gi Asst Relationship Specialty Start Date End Date Elsewhere, Pcp PCP - General Internal Medicine 08/13/23 documented as of this encounter
--- OUTSIDE RECORDS SUMMARY | 2023-11-15 11:57 | XMS_ITS | Encounter Summary ---
Author Organization [facility] Address [address] [place] [address] Care Team Providers Care Bridge Worker Apprentice Name Role Phone Elsewhere, Pcp Primary [...] has e electric, gas, oil, or water [employer] threatened to shut off services in your [...] CDT Procedure visit Department of Urology in [address] [phone] Burke Strauss M.D. [address] [place] [phone] Discharge Disposition: Home or Self Care 12/07/2023 10:30 AM CDT Office Visit Department of Urology in [address] [phone] Burke Strauss M.D. [address] [place] [phone] Discharge Disposition: Home or Self Care documented [...] on filedocumented in this encounter Care Teams Bridge Worker Apprentice Relationship Specialty Start Date End Date Elsewhere, Pcp PCP - General Internal Medicine 08/13/23 documented as of this encounter
--- OUTSIDE RECORDS SUMMARY | 2023-11-15 11:57 | XMS_ITS | Encounter Summary ---
Author Organization [facility] Address [address] [place] [address] Care Team Providers Care Catholic Priest Name Role Phone Elsewhere, Pcp Primary Care Provider Unavailabl e Encounter Details Date Type Department Care Team (Late st Contact Info) Description 08/15/2023 8:30 AM CDT Anesthesia Event RST ROMB MAIN OR [address] [place] [phone] Hayde Song M.D. [address] [place] [address] Anesthesia Record Procedure Summary Procedure Name Responsible [...] R.N. 08/15/23 0909 by Rae Gonzalez APRN, DRUG WORKER, DNAP Peripheral IV Placement Date: 08/02; Existing [...] Smoking Tobacco: Never Smokeless Tobacco: Never [facility] Utilities Answer Date Recorded In the past 12 months has e [employer], gas, oil, or water company threatened to [...] Procedure Summary Date: 08/15/23 Room / Location: [place] [address] / [facility] in [place], [place] Anesthesia Start: 829 Anesthesia Stop: 1317 [...] * Anesthesia Procedure Notes - Rae Gonzalez, CNC MAINTENANCE MECHANIC, GAVIN, DNAP - 08/15/2023 9:51 AM CDTAssociated [...] arterial: none * Anesthesia Procedure Notes - aRe Gonzalez APRN, CRNA, DNAP - 08/15/2023 9:43 [...] ETT location: oral VL device: glide scope [place] scope blade size: 4 Tube size: 7.5 [...] 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 Location: [place] [address] / [facility] in [place], [place] Providers: Boubacar Brock M.D. Pertinent components [...] patient / legal guardian, or through an painter rough; patient evaluated and approved for anesthesia / [...] CDT Procedure visit Department of Urology in [place] [address] [place] [address] Burke Strauss M.D. [address] [place] [phone] Discharge Disposition: Home or Self Care 12/07/2023 10:30 AM CDT Office Visit Department of Urology in [address] [phone] Burke Strauss M.D. [address] [place] [phone] Discharge Disposition: Home or Self Care documented [...] CDT documented in this encounter Results * PA ARTL CATH/CNULA MONITOR PERC, PA US GUIDE VASC ACCESS, LDA ANE ARTERIAL LINE INSERTION, MC ANE INVASIVE CATH WITH ULTRASOUND (08/15/2023 9:51 AM CDT) Narrative Rae Gonzalez, ARUN, DRUG WORKER, DNAP - 08/15/2023 9:51 AM CDT Rae Gonzalez APRN, GAVIN, DNAP ? 08/15/2023 ??9:52 AM Invasive Catheter [...] ETT location: oral VL device: glide scope [place] scope blade size: 4 Tube size: 7.5 [...] mg documented in this encounter Care Teams Catholic Priest Relationship Specialty Start Date End Date Elsewhere, Pcp PCP - General Internal Medicine 08/13/23 documented as of this encounter
--- OUTSIDE RECORDS SUMMARY | 2023-11-15 11:58 | XMS_ITS | Encounter Summary ---
Author Organization [facility] Address [address] [place] [address] Care Team Providers Care Supreme Court Justice Name Role Phone Elsewhere, Pcp Primary Care Provider Unavailabl e Encounter Details Date Type Department Care Team (Late st Contact Info) Description 08/13/2023 4:35 PM CDT Ancillary Procedure Department of Radiology in [place], [place] [address] [place] [address] Carlos Alberto Henson M.D. [address] [place] [address] Social History Tobacco Use Types Packs/Day Years Used Date Smoking Tobacco: Never Smokeless Tobacco: Never [facility] Utilities Answer Date Recorded In the past 12 months has [facility] [employer], gas, oil, or water [employer] threatened to shut off services in [...] [facility] 08/13/2023 Sex and Gender Information Value Date Recorded Sex Assigned at Not on file Gender Identity Not on file Sexual Orientation Not on file documented as of this encounter Plan of Treatment Upcoming Encounters Date Type Department Care Team (Latest Contact Info) Description 12/07/2023 10:15 AM CDT Procedure visit Department of Urology in [place] [address] [place] [address] Burke Strauss M.D. [address] [place] [phone] Discharge Disposition: Home or Self Care 12/07/2023 10:30 AM CDT Office Visit Department of Urology in [place], [place] [address] [place] [address] Burke Strauss M.D. [address] [place] [phone] Discharge Disposition: Home or Self Care documented [...] bases are clear. Procedure Note Killian Montenegro M.B.B.S. MPerla. - 08/13/2023 EXAM: INTERPRETATION OF OUTSIDE [...] on filedocumented in this encounter Care Teams Supreme Court Justice Relationship Specialty Start Date End Date Elsewhere, Pcp PCP - General Internal Medicine 08/13/23 documented as of this encounter
--- OUTSIDE RECORDS SUMMARY | 2023-11-15 11:58 | XMS_ITS | Encounter Summary ---
Author Organization [facility] Address [address] [place] [address] Care Team Providers Care Senior Manager Creative Services Name Role Phone Elsewhere, Pcp Primary Care Provider Unavailabl e Encounter Details Date Type Department Care Team (Late st Contact Info) Description 08/15/2023 7:55 AM CDT - 08/15/2023 11:23 AM CDT Surgery RST ROMB MAIN OR [address] [place] [phone] Boubacar Brock M.D. [address] [place] [phone] Palliative EXPLORATORY LAPAROTOMY, CYSTOTOMY CLOSURE, RIGHT URETERAL STENT EXCHANGE Social History Tobacco Use Types Packs/Day Years Used Date Smoking Tobacco: Never Smokeless Tobacco: Never [facility] Utilities Answer Date Recorded In [...] AM CDT DISCHARGE SUMMARY BRIEF OVERVIEW Hospital: [facility] Discharge Provider: Boubacar Brock M.D. Primary Team: [...] Lexiaochuan, M.D.Premo, Hayley, M.D.Botkin, Hannah, M.D. [facility] ROMB OR DISCHARGE DISPOSITION Home or Self Care [1] ACTIVE ISSUES REQUIRING FOLLOW UP OUTPATIENT FOLLOW UP Scheduled Appointments 08/26/2023 1:00 PM [facility] Radiology For appointment details refer to your [...] he felt completely obstructed and presented to [facility]. [facility] Attempted Tabares insertion but bladder irrigation was unsuccessful on multiple attempts. Hung 1U pRBC's. Given some volume and transferred to [facility] ICU ICU Course Urology consulted [...] CONSULT TO NUTRITION SUPPORT IP CONSULT TO SATURATION DIVER WOUND CARE CONDITION AT DISCHARGE stable Discharge [...] he felt completely obstructed and presented to [facility]. [facility] Attempted Tabares insertion but bladder irrigation was unsuccessful on multiple attempts. Hung 1U pRBC's. Given some volume and transferred to [facility] ICU ICU Course Urology consulted [...] CDT You were discharged from the [facility] Urology Surgery - Chief A - [...] 08/26/2023 10:21 AM CDT Occupational Therapy [facility] Inpatient Treatment SUBJECTIVE Patient's Name: Kalen Vega Referring/Attending Provider: Boubacar Brock M.D. Reason for Referral: Occupational Therapy Evaluation and Treatment History of Present Illness: Kalen Vega is a 83 y.o. male who was admitted to [facility] in [place] on 08/13/2023 for Hematuria [R31.9]. Precautions Other Precautions: Abdominal, fall precautions, monitor tachycardia and hypertension Pain Assessment: Pain not reported during session. Subjective Comments: Agreeable to therapy session. Team Communication: The patient's status was discussed and coordination of care occurred with RN, Family/Caregiver, nurse tech Family/Caregiver Present: son and dacahxpi-ds-kah OBJECTIVE Vital Signs: Vitals not formally assessed during session. No concerns during chart review and the patient had nosigns or symptoms consistent with vital changes during therapy session. Outcome Measures: [facility] Inpatient Short Form: Putting on and taking [...] at or below 17 Clinicians answer the [facility] Inpatient Short Form based on observed patient [...] through pant leg first. - Adaptive Equipment: [employer] Opt[employer] Technician TOILETING - Assist Level: Maximal Assist [...] (Edge of bed) - Assist Level: Modified [place] - Equipment: bed rail - Therapist Delivery: assessed, instructed, assisted - Adaptive Equipment: leg blue line trimmer trialed ; however, patient able to move [...] extremity (stiff knee) first. Recommended adaptive equipment: [employer] Technician. Toileting - Patient instructed on accurate [...] maximal exertion Handouts provided: Bathroom Safety Equipment [id number], Techniques to Help You Save Energy [id number] Patient was left in bedside chair with [...] Usama 6C -room 121 ASSESSMENT / PLAN PRE CERTIFICATION SPECIALISToccupational therapist rehab manager met with patient and son Kar to inform them of home health care acceptance for PT/OT. Patient's son Kar and ahykauct-cb-uur will provide transportation at the time of discharge. PLAN Patient to discharge home with home health care. Home Medical Care - Admitted Since 08/13/2023 Service Provider Selected Services Address Phone Fax Patient Preferred [facility] [address] [facility] [phone] -- Lighting Engineer: Ghazal NURSING: - Complete documentation in the Discharge Navigator including Nursing Report Info and Facility/NextLevel of Care Info - Call report and arrange for the patient's first visit - Send After Visit Summary and required packet of dismissal information with patient, including advance directive. PRIMARY SERVICE: - Please provide a non-[place] home health order for: physical therapy and [...] be provided by family--patient's son Kar and [id number]. 3. cost control specialist recommended reaching out to family, friends, and neighbors for assistance. 4. cost control specialist provided information regarding the dismissal process. [...] Reviewed with patient #1 Hematuria Please page [facility] ([phone]) or [facility] ([phone]) Nutrition Support Service pager with questions. * Emeterio Buchanan P.T., D.P.T., GCS - 08/25/2023 9:35 AM CDT Physical Therapy Inpatient Treatment SUBJECTIVE Patient's Name: Kalen Vega Referring/Attending Provider: Boubacar Brock M.D. Reason for Referral: Physical Therapy Evaluate and Treat History of Present Illness: Kalen Vega is a 83 y.o. male who was admitted to [facility] in [place] on 08/13/2023 for Hematuria [R31.9] Precautions Other [...] throughout session; within normal ranges. Outcome Measures: -[facility] Inpatient Short Form: AM-[facility] Basic Mobility (V.2) How much help [...] 3-5 steps with a railing?: A Little AM-[facility] Basic Mobility (V.2) Raw Score: 18 AM-[facility] Basic Mobility (V.2) Standardized Score: 41.05 Interpretation: Based on scoring guidelines using the raw score value: Those going to home had an average score at or above 18 Those going to facility had an average score at or below 17 Clinicians answer the -[facility] Inpatient Short Form based on observed [...] - 08/25/2023 9:18 AM CDT Occupational Therapy [facility] Inpatient Treatment SUBJECTIVE Patient's Name: Kalen Vega Referring/Attending Provider: Boubacar Brock M.D. Reason for Referral: Occupational Therapy Evaluation and Treatment History of Present Illness: Kalen Vega is a 83 y.o. male who was admitted to [facility] in [place] on 08/13/2023 for Hematuria [R31.9]. Precautions Other Precautions: Abdominal, fall precautions, monitor tachycardia and hypertension Pain Assessment: Pain not reported during session. Subjective Comments: Agreeable to therapy session. Team Communication: The patient's status was discussed and coordination of care occurred with RN, PT OBJECTIVE Vital Signs: Vitals monitored throughout session; within normal ranges. Outcome Measures: [facility] Inpatient Short Form: Putting on and taking [...] at or below 17 Clinicians answer the [facility] Inpatient Short Form based on observed patient [...] including figure four technique. Recommended adaptive equipment: [employer] Technician and Sock Aid. Toileting - Patient [...] and modification tools as needed including leg blue line trimmer and/or bed adjustments. Bathroom DME: - Educated [...] in place draining clear yellow urine I/O ([id number]): Fifty-five cc serosanguineous from the drain 1 [...] locallyfor CBI. He was subsequently transferred to [facility] 08/12 for difficulty irrigating his catheter [...] have him follow up with his local rn mds Comorbidities: --history of DVT status post IVC [...] discussed with Dr. Venegas, chief urology resident protection manager. Pager during business hours: [phone] Pager after hours: [phone] * Emeterio Buchanan P.T., D.P.T., GCS - 08/24/2023 10:46 AM CDT Physical Therapy Inpatient Treatment SUBJECTIVE Patient's Name: Kalen Vega Referring/Attending Provider: Boubacar Brock M.D. Reason for Referral: Physical Therapy Evaluate and Treat History of Present Illness: Kalen Vega is a 83 y.o. male who was admitted to [facility] in [place] on 08/13/2023 for Hematuria [R31.9] Precautions Other [...] %, and O2flow: Room air Outcome Measures: [facility] Inpatient Short Form: -[facility] Basic Mobility (V.2) How much help [...] 3-5 steps with a railing?: A Lot -[facility] Basic Mobility (V.2) Raw Score: 17 -[facility] Basic Mobility (V.2) Standardized Score: 39.67 Interpretation: Based on scoring guidelines using the raw score value: Those going to home had an average score at or above 18 Those going to facility had an average score at or below 17 Clinicians answer the [facility] Inpatient Short Form based on observed patient [...] baseline. PT Goal #2: Patient will perform uif-he-cbgkf transfer with modified independence and least restrictive [...] Total Kcal/day: 1370 based on 84 % [place] Non-standard additives: K 80 mEq Phos 30 [...] magnesium, phosphorus tomorrow. #1 Hematuria Please page [facility] ([phone]) or [facility] ([phone]) Nutrition Support Service pager with questions. * [...] catheter in place draining light smith I/O ([id number]): Forty-two cc serosanguineous from the drain 2.2 [...] locallyfor CBI. He was subsequently transferred to [facility] 08/12 for difficulty irrigating his catheter [...] 2.5 mg BID eliquis initiated 08/[address] [facility] med curbside recs --transition from eliquis [...] have him follow up with his local rn mds Comorbidities: --history of DVT status post IVC [...] discussed with Dr. Venegas, chief urology resident protection manager. Pager during business hours: [phone] Pager after hours: [phone] * Deanne Mike L.G.S.W., M.S.W. - 08/23/2023 11:25 AM CDT SUBJECTIVE Social Work spoke with [facility]. They cannot provide senior living at this time. They can provide OT/PT [...] anticipated discharge date of 08/24/23-08/26/23. Referrals sent: [facility] [place] [facility] (out of service area) [facility] ASSESSMENT / PLAN ASSESSMENT Patient has robust family support including a son living with him. PLAN Patient desires home health care through [facility]. Social Work will continue to follow to provide support. Social Work will continue to assist with discharge needs. Shorty Sun, M.S.W. 08/23/23 * Jazmine Benítez, RRitesh., C.W.C.N. - 08/23/2023 11:10 AM CDT [facility] Wound RN consulted to assess Kalen Vega skin alterations. Wound assessment, pain, and Wilberot score noted in the flowsheet. Images taken [...] stent and hematuria who is transferred from [facility] ED with 3 days of hematuria and [...] None Unable to Measure Y *Wound Bed Closed;[place];Red Tissue Exposed None Odor None *Exudate Amount [...] 30 minutes > 30 minutes Ongoing management Nursing;Wound/childcare center director Partial head to toe skin assessment [...] CDT * Emeterio Buchanan P.T., D.P.T., [facility] - 08/23/2023 11:02 AM CDT Physical Therapy Inpatient Treatment SUBJECTIVE Patient's Name: Kalen Vega Referring/Attending Provider: Boubacar Brock M.D. Reason for Referral: Physical Therapy Evaluate and Treat History of Present Illness: Kalen Vega is a 83 y.o. male who was admitted to [facility] in [place] on 08/13/2023 for Hematuria [R31.9] Precautions Other [...] 3-5 steps with a railing?: A Lot -[facility] Basic Mobility (V.2) Raw Score: 17 [facility] Basic Mobility (V.2) Standardized Score: 39.67 Interpretation: Based on scoring guidelines using the raw score value: Those going to home had an average score at or above 18 Those going to facility had an average score at or below 17 Clinicians answer the [facility] Inpatient Short Form based on observed patient [...] baseline. PT Goal #2: Patient will perform fyu-zz-vulcg transfer with modified independence and least restrictive [...] D.P.T., GCS * Demarco Salazar Pharm.D., R.Ph., [facility] - 08/23/2023 10:19 AM CDT Pharmacist Progress [...] Total Kcal/day: 1370 based on 84 % [place] Non-standard additives: MAX chloride Thiamine 100 mg [...] magnesium, phosphorus tomorrow. #1 Hematuria Please page [facility] ([phone]) or [facility] ([phone]) Nutrition Support Service pager with questions. * Ivy Hernandez O.T. - 08/23/2023 8:30 AM CDT Occupational Therapy [facility] Hospital Inpatient Treatment SUBJECTIVE Patient's Name: Kalen Vega Referring/Attending Provider: Boubacar Brock M.D. Reason for Referral: Occupational Therapy Evaluation and Treatment History of Present Illness: Kalen Vega is a 83 y.o. male who was admitted to [facility] in [place] on 08/13/2023 for Hematuria [R31.9]. Precautions Other Precautions: Abdominal, fall precautions, monitor tachycardia and hypertension Pain Assessment: Pain not reported during session. Subjective Comments: Agreeable to therapy session. Team Communication: The patient's status was discussed and coordination of care occurred with RN, PT OBJECTIVE Vital Signs: Vitals monitored throughout session; within normal ranges. Outcome Measures: [facility] Inpatient Short Form: Putting on and taking [...] at or below 17 Clinicians answer the [facility] Inpatient Short Form based on observed patient [...] (min): 39 min Ivy Hernandez O.T. * aPula Hernandez M.D. - 08/23/2023 6:02 AM CDT [...] catheter in place draining clear yellow I/O ([id number]): 73 cc serosanguineous from the drain Seven [...] locallyfor I. He was subsequently transferred to [facility] 08/12 for difficulty irrigating his catheter [...] 2.5 mg BID eliquis initiated 08/[address] 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 [facility] Summary: Diet: NPO, TPN Activity: Ad [...] discussed with Dr. Venegas, chief urology resident protection manager. Pager during business hours: [phone] Pager after hours: [phone] * Chary Diamond M.A., O.T., BCP - [...] [facility] Social Work sent referral. OBJECTIVE Patient is anticipated to remain at [place] [facility] for 3-5 days. Referrals sent: [facility] Health ASSESSMENT / PLAN ASSESSMENT Patient has robust family support including a son living with him. PLAN Patient desires home health care through [facility]. Social Work will continue [...] y.o. male who was admitted to [facility] in [place] on 08/13/2023 for Hematuria [R31.9] Precautions Other [...] hypotension or respiratory distress. . Outcome Measures: AM-[facility] Inpatient Short Form: AM-[facility] Basic Mobility [...] AM-[facility] Basic Mobility (V.2) Raw Score: 17 -[facility] Basic Mobility (V.2) Standardized Score: 39.67 Interpretation: Based on scoring guidelines using the raw score value: Those going to home had an average score at or above 18 Those going to facility had an average score at or below 17 Clinicians answer the -[facility] Inpatient Short Form based on observed [...] baseline. PT Goal #2: Patient will perform xke-ny-vgzmo transfer with modified independence and least restrictive [...] Total Kcal/day: 1370 based on 84 % [place] Non-standard additives: MAX chloride Thiamine 100 mg [...] place draining light smith colored urine I/O ([id number]): CBI on slow drip 75 cc serosanguineous [...] locallyfor CBI. He was subsequently transferred to [facility] 08/12 for difficulty irrigating his catheter [...] 2.5 mg BID eliquis initiated 08/[address] [facility] med curbside recs --transition from eliquis [...] have him follow up with his local rn mds Comorbidities: --history of DVT status post IVC [...] discussed with Dr. Venegas, chief urology resident protection manager. Pager during business hours: [phone] Pager after hours: [phone] * Qamar Jim, PharmJonahD., R.Ph. - 08/21/2023 [...] place draining clear smith colored urine I/O ([id number]): 1800 cc urine output 75 cc serosanguineous [...] locallyfor CBI. He was subsequently transferred to [facility] 08/12 for difficulty irrigating his catheter [...] have him follow up with his local rn mds Comorbidities: --history of DVT status post IVC [...] discussed with Dr. Venegas, chief urology resident protection manager. Pager during business hours: [phone] Pager after hours: [phone] * Lizette Harvey M.D. - 08/20/2023 8:08 [...] draining clear thin [place] colored urine I/O ([id number]): 240 cc p.o. intake 760 cc urine [...] locallyfor CBI. He was subsequently transferred to [facility] 08/12 for difficulty irrigating his catheter [...] 2.5 mg BID eliquis initiated 08/[address] [facility] med curbside recs --transition from eliquis [...] have him follow up with his local rn mds Comorbidities: --history of DVT status post IVC [...] questions or concerns. Pager during business hours: [phone] Pager after hours: [phone] * Qamar Jim, PharmJonahD., R.Ph. - 08/20/2023 [...] Jim, PharmPerla., R.Ph. * Lisa Seaman, O.T., [facility] - 08/19/2023 2:26 PM CDT Occupational Therapy Acute Hospital Inpatient Treatment SUBJECTIVE Patient's Name: Kalen Vega Referring/Attending Provider: Boubacar Brock M.D. Reason for Referral: Occupational Therapy Evaluation and Treatment History of Present Illness: Kalen Vega is a 83 y.o. male who was admitted to [facility] in [place] on 08/13/2023 for Hematuria [R31.9]. Precautions Other Precautions: Abdominal, fall precautions, monitor tachycardia and hypertension Pain Assessment: Pain not reported during session. Subjective Comments: Patient greeted in chair and agreeable to therapy session. Team Communication: The patient's status was discussed and coordination of care occurred with RN OBJECTIVE Vital Signs: Vitals monitored throughout session; within normal ranges. Outcome Measures: [facility] Inpatient Short Form: Putting on and taking [...] at or below 17 Clinicians answer the [facility] Inpatient Short Form based on observed patient [...] ability to complete toileting including clothing management, ajniya-cares and transfer with supervision/set up assistance to [...] about patient's nutritional care please contact pager [phone] on weekdays or [phone] on weekends/holidays. NUTRITION ASSESSMENT: Mr. Vega is [...] care everywhere) ESTIMATED NEEDS: Total Calorie Needs: 0165-9629 calories/day Method to Estimate Energy Needs: kcal/kg [...] y.o. male who was admitted to [facility] in [place] on 08/13/2023 for Hematuria [R31.9] Precautions Other [...] mmHg O2: 96% Room air Outcome Measures: [facility] Inpatient Short Form: -[facility] Basic Mobility (V.2) How much help [...] 3-5 steps with a railing?: A Little -[facility] Basic Mobility (V.2) Raw Score: 18 -[facility] Basic Mobility (V.2) Standardized Score: 41.05 Interpretation: Based on scoring guidelines using the raw score value: Those going to home had an average score at or above 18 Those going to facility had an average score at or below 17 Clinicians answer the [facility] Inpatient Short Form based on observed patient [...] Ongoing PT Goal #2: Patient will perform zul-ip-evwfn transfer with modified independence and least restrictive [...] in place draining clear pink urine I/O ([id number]): 370 p.o. intake 1 L urine output [...] locallyfor CBI. He was subsequently transferred to [facility] 08/12 for difficulty irrigating his catheter [...] 2.5 mg BID eliquis initiated 08/[address] [facility] med curbside recs --transition from eliquis [...] have him follow up with his local rn mds Comorbidities: --history of DVT status post IVC [...] questions or concerns. Pager during business hours: [phone] Pager after hours: [phone] * Lisa Seaman, O.TJonah, [facility] - 08/18/2023 11:15 AM CDT Occupational Therapy [facility] Inpatient Treatment SUBJECTIVE Patient's Name: Kalen Vega Referring/Attending Provider: Boubacar Brock M.D. Reason for Referral: Occupational Therapy Evaluation and Treatment History of Present Illness: Kalen Vega is a 83 y.o. male who was admitted to [facility] in [place] on 08/13/2023 for Hematuria [R31.9]. Precautions Other [...] pressure: 168/97 - nurse notified Outcome Measures: [facility] Inpatient Short Form: Putting on and taking [...] at or below 17 Clinicians answer the [facility] Inpatient Short Form based on observed patient [...] doffing over it last. Recommended adaptive equipment: [employer] Opt[employer] Technician and Sock Aid. Patient was left in bedside chair, with nursing/NURSES' AIDE at end of session with call light [...] y.o. male who was admitted to [facility] in [place] on 08/13/2023 for Hematuria [R31.9] Precautions Other [...] at or below 17 Clinicians answer the [facility] Inpatient Short Form based on observed patient [...] following coordination of care occurred with the mechanics supervisor/Caregiver Present: No Patient was left in [...] Progressing PT Goal #2: Patient will perform dpe-ti-zvvoz transfer with modified independence and least restrictive [...] in place draining clear pink urine I/O ([id number]): 1.2 L p.o. intake 1 L urine [...] locallyfor I. He was subsequently transferred to [facility] 08/12 for difficulty irrigating his catheter [...] 2.5 mg BID eliquis initiated 08/[address] [facility] med curbside recs --transition from eliquis [...] diet later today follow up vascular medicine [facility] Summary: Diet: currently limited clears Activity: Ad kong DVT PPX: heparin drip GI PPX: Pantoprazole Bowel Regimen:N/A IVF: none Abx/Microbiology: Ceftriaxone Pain Control: Tylenol, oxycodone 08/18. Scheduled trospium Home Meds Resumed: Metoprolol, tamsulosin, rosuvastatin Held Home Meds: None Consults: None Paula Hernandez M.D. 08/18/2023 6:02 AM CDT Please page the Urology Chief Service with questions or concerns. Pager during business hours: [phone] Pager after hours: [phone] * Tayler Greenwood M.D., M.Ed. - 08/17/2023 [...] MD, MEd * Alia Ruelas Pharm.D., R.Ph., [facility] - 08/17/2023 6:08 PM CDT Heparin [...] the patient follow up with his primary rn mds at discharge we will which we will [...] Ringer's Lactated Ringer's * Lisa Seaman, O.T., [facility] - 08/17/2023 10:47 AM CDT Occupational Therapy [facility] Inpatient Treatment SUBJECTIVE Patient's Name: Kalen Vega Referring/Attending Provider: Boubacar Brock M.D. Reason for Referral: Occupational Therapy Evaluation and Treatment History of Present Illness: Kalen Vega is a 83 y.o. male who was admitted to [facility] in [place] on 08/13/2023 for Hematuria [R31.9]. Precautions Other [...] at or below 17 Clinicians answer the AM-[facility] Inpatient Short Form based on observed [...] in place draining clear pink urine I/O ([id number]): NG tube 200 cc Two hundred sixty-five [...] locallyfor CBI. He was subsequently transferred to [facility] 08/12 for difficulty irrigating his catheter [...] since 08/11) -[facility]/antiplatelet. Theyfelt he no [...] questions or concerns. Pager during business hours: [phone] Pager after hours: [phone] * Audi De Luna P.T., D.P.T. - [...] in place draining clear pink urine I/O ([id number]): NG tube 200 cc Two hundred sixty-five [...] locallyfor CBI. He was subsequently transferred to [facility] 08/12 for difficulty irrigating his catheter [...] questions or concerns. Pager during business hours: [phone] Pager after hours: [phone] * Paula Hernandez M.D. - 08/15/2023 9:09 AM CDT PROGRESS NOTE: No events. AFVSS. Pain controlled. No flatus. No further emesis overnight. Abdomen more distended than yesterday but remained soft, tender to deep palpation only, no rebound. Twenty-four Cypriot Alcock three-way catheter remains off CBI, draining [...] for CBI. He was subsequently transferred to [facility] 08/12 for difficulty irrigating his catheter [...] he was hemodynamically stable, abdominal exam reassuring, Tabarse catheter draining. Decision was made to observe [...] above was discussed with Dr. Brock, urology information services consultant on-call who is in agreement with [...] Family to bring his home enzalutamide from [place] Irvin Franco Pharm.D., R.Ph. * Jakob De Paz M.D. - 08/14/2023 11:34 AM CDT PROGRESS NOTE: No events. AFVSS. Pain controlled. No flatus. Nauseous and had 2 episodes of emesis. Abdomen more distended than yesterday but remained soft, tender to deep palpation only, no rebound. Twenty-four Cypriot Alcock three-way catheter remains off CBI, draining [...] for CBI. He was subsequently transferred to [facility] 08/12 for difficulty irrigating his catheter [...] above was discussed with Dr. Brock, urology information services consultant on-call who is in agreement with the lisa outlined. Electronically signed by: Jakob De Paz M.D. 08/14/23 11:52 AM CDT Urology chief * Carlos Alberto eHnson M.D. - 08/14/2023 7:49 AM CDT CCM3 [...] Patient discussed with Dr. Sylvester. Page CCM3 [id number] Carlos Alberto Henson M.D. PGY-1 CCM 3 [...] who have asked we place a 24 Cypriot 3-way urinary catheter pending evaluation. We will [...] stent and hematuria who is transferred from [facility] ED with 3 days of [...] him to present to local hospital in [place]. OSH Course: His hemoglobin was in the [...] Insecurity: No Food Insecurity (02/16/2022) [facility] Food Insecurity Worried About Running Out of Food in the Last Year: 1 Transportation Needs: No Transportation Needs (02/16/2022) Received from [facility], [facility] Transportation Needs Lack of Transportation (Medical): 1 Housing Stability: Low Risk (02/16/2022) Received from [facility], [facility] Housing Stability Unable to Pay for Housing [...] Dr. Sylvester and Dr. Rodriguez. Page CCM3 [id number] Carlos Alberto Henson M.D. PGY-1 CCM 3 [...] As expected PRIMARY PROCEDURALIST FAY Cerna MD [phone] ASSISTANTS none COMPLICATIONS None. DRAINS None. IMPLANTS [...] peripheral vein targets. Ultrasound used for assessment: [employer]Gager (My[employer]) Fit Provider contacted (include name): Uro Surg [...] EXCHANGE; Surgeon: Boubacar Brock M.D.; Location: [facility] ROM[facility] OR FAMILY HISTORY No family [...] 14 -- AST U/L 25 -- Radiology: @[id number]@ Swallow Assessment: No data to display ASSESSMENT / PLAN #1 Hematuria ASSESSMENT Currently we are asked to visit with Mr. Vega for consideration of parenteral nutrition. Nutrition Needs: Height: 180 cm Admission Weight: 91.2 kg (08/13/2023) Current Weight: 90.2 kg BMI (Calculated): 27.8 kg/m?? Total Calorie Needs: 5148-7124 calories/day Method to Estimate Energy Needs: [place] ( ) Weight Used for Equation Calculations: [...] on electrolytes Please call NSS pager at [phone] at [facility] or [phone] at [facility] with any additional questions. [...] values in this interval not displayed. Radiology: @[email or web address]@ Swallow Assessment: No data to display ASSESSMENT / PLAN #1 Hematuria ASSESSMENT Currently we are asked to visit with Mr. Vega for consideration of parenteral nutrition. Nutrition Needs: Height: 180 cm Admission Weight: 91.2 kg (08/13/2023) Current Weight: 90.2 kg BMI (Calculated): 27.8 kg/m?? Total Calorie Needs: 2300-6236 calories/day Method to Estimate Energy Needs: kcal/kg [...] on electrolytes Please call NSS pager at [phone] at [facility] or [phone] at [facility] with any additional questions. [...] stent along with other stents and apparently rn mds in the past I recommended indefinite dual [...] 20 mL/hr, intravenous, Continuous, Frieda Garner APRN, OVEN ATTENDANT, Last Rate: 20 mL/hr at 08/15/23 1459, [...] but he can discuss this with his rn mds at home. We need to balance transfusion needs for continued bleedingand risk of recurrent [place] if not on Plavix-coronary stents were 6 [...] y.o. male who was admitted to [facility] in [place] on 08/13/2023 for Hematuria [R31.9]. Relevant Medical History: Kalen Vega is a 83 y.o. 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 [...] 3-5 steps with a railing?: A Lot -[facility] Basic Mobility (V.2) Raw Score: 17 [facility] Basic Mobility (V.2) Standardized Score: 39.67 Interpretation: Based on scoring guidelines using the raw score value: Those going to home had an average score at or above 18 Those going to facility had an average score at or below 17 Clinicians answer the [facility] Inpatient Short Form based on observed patient [...] following coordination of care occurred with the mechanics supervisor/Caregiver Present: SonFavio Patient was left in [...] y.o. male who was admitted to [facility] in [place] on 08/13/2023 for Hematuria with cystotomy and [...] Min assist for mobility. Required assist for ayq-aa-oxuen for force generation and is generally standby [...] Ongoing PT Goal #2: Patient will perform joq-gv-etydj transfer with modified independence and least restrictive [...] - 08/16/2023 10:01 AM CDT Occupational Therapy [facility] Inpatient Evaluation/Treatment SUBJECTIVE Patient's Name: Kalen Vega Referring/Attending Provider: Boubacar Brock M.D. Reason for Referral: Occupational Therapy Evaluation and Treatment PERTINENT MEDICAL / SURGICAL HISTORY: Kalen Vega has no past medical history on file. Kalen Vega has no past surgical history on file. History of Present Illness: Kalen Vega is a 83 y.o. male who was admitted to [facility] in [place] on 08/13/2023 for Hematuria [R31.9]. Relevant Medical [...] with RN, PT Family/Caregiver Present: Son and qowwzigl-at-wgg. Home Living and Equipment: Lives with: Spouse/Significant [...] walker, Single point cane Adaptive Equipment Owned: [employer] Technician, Long Handled Shoe Horn Other DME Owned: Regular flat bed Prior Level of Function and Mobility: Basic Activities of Daily Living: Independent Instrumental Activities of Daily Living: Required Assistance: Laundry son assists with laundry and cooking Functional Mobility: Independent Driving: Yes Occupational Role: Retired Leisure Interests: watch movies, plays [employer] train, meets friends for breakfast. 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 Patient expressed understanding [...] engaged in conversation with his family when child protective services social worker entered the room. [...] locally at approximately 3:00 a.m. a 22 Cypriot three-way catheter was placed and CBI wasinitiated. Unfortunately he clotted off the catheter multiple times despite manual irrigations, started to develop hypotension and tachycardia and [facility] He relays the [...] non-distended, non-peritonitic Extremities: No edema : 22 Cypriot three-way Tabares catheter draining a minimal amount [...] urinary retention Given his non draining 22 Cypriot three-way catheter the Urology techs and I subsequently exchanged this for a 24 Cypriot three-way Alcock in the usual sterile fashion. [...] to follow [place] [phone] with questions or concerns Sixto Cain M.D. [...] peripheral vein targets. Ultrasound used for assessment: [employer] Fit Provider contacted (include name): Uro Surg [...] CDT Patient Transfer Note Patient transferred to: [facility] Room: [facility] Accompanied by: JAMEL Garcia Report [...] signs? YES * Sixto Teague R.R.T., L.R.T., BEAD PICKER-ACCS - 08/14/2023 7:00 AM CDT Patient is [...] the last 24hours. Sixto Teague R.R.T., L.R.TJonah, BEAD PICKER-ACCS 08/14/23 7:00 AM CDT * Radha Crespo R.R.TJonah, L.R.T. 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 His existing 24 Cypriot three-way Tabares catheter was noted to be [...] additional tissue for additional coverage. A 24 Cypriot three-way catheter was placed with 15 cc in the balloon. This irrigated to light clear pink. A 15 Cypriot YARELI drain wasplaced into the pelvis exiting left lower quadrant. The fascia was closed with interrupted and wluhpl-uj-vsmmt 0 PDS. Fat was approximated using 3-0 [...] RN, CPN, CCDS, CCS, CRC Clinical Documentation Toy Consultant Query created by: ELMER Barker, RN, CPN, [...] stent and hematuria who is transferred from [place] ED with 3 days of hematuria & [...] RN, CPN, CCDS, CCS, CRC Clinical Documentation Toy Consultant Query created by: ELMER Barker, RN, CPN, [...] he felt completely obstructed and presented to [place] ED. [place] Course Attempted Tabares insertion but bladder irrigation was unsuccessful on multiple attempts. Hung 1U pRBC's. Given some volume and transferred to [facility] ICU ICU Course Urology consulted [...] CDT Procedure visit Department of Urology in [address] [phone] Burke Strauss M.D. [address] [place] [phone] Discharge Disposition: Home or Self Care 12/07/2023 10:30 AM CDT Office Visit Department of Urology in [place] [address] [place] [address] Burke Strauss M.D. [address] [place] [phone] Discharge Disposition: Home or Self Care Pending [...] 08/26/2023 7:16 AM CDT STRM Testing Location [place] DEFAULT 08/26/2023 6:57 AM CDT STRM Blood (Blood, Venous) 08/26/2023 6:50 AM CDT 08/26/2023 6:57 AM CDT Paula Hernandez M.D. LAB BLOOD BANK TEST ORDERABLES Performing Organization Address [facility]/ZIP Co de Phone Number [facility] [address] [place] [address], [facility] STRM [facility] [address] [place] [address] * (ABNORMAL) CBC without Differential (08/26/2023 3:20 [...] Organization Address City/[facility]/ZIP Co de Phone Number [facility] [address] [place] [address], [facility] DTL [facility] [address] [place] [address] * Magnesium (08/26/2023 3:20 AM CDT) Pathologist [facility] Magnesium, S 2.1 1.7 - 2.3 mg/dL 08/26/2023 4:04 AM CDT DTL Blood (Blood, Venous) 08/26/2023 3:20 AM CDT 08/26/2023 3:50 AM CDT Boubacar Brock M.D. LAB BLOOD ADD-ON [facility] [address] [place] [address], [facility] [address] [place] [address] * (ABNORMAL) Renal Function Panel (08/26/2023 3:20 [...] Organization Address City/[facility] Co de Phone Number [facility] [address] [place], [place] [phone] [place] [address] * Heparin Anti-Xa Assay (08/26/2023 3:20 AM CDT) [facility] Heparin Anti-Xa, P 0.26 IU/mL 2023 3:58 AM CDT DT Comment: UFH therapeutic range: [...] Organization Address City/[facility]/ZIP Co de Phone Number [facility] [address] [place], [place] [phone] [place] [address] 200 [place] [address] * (ABNORMAL) CBC without Differential (08/25/2023 3:24 AM CDT) [facility] Hemoglobin 8.3(L) 13.2 - 16.6 g/dL [...] CDT Corin Ring M.D. LAB BLOOD ADD-ON [place] [address] [place] [address], [facility] [address] [place] [address] * (ABNORMAL) Renal Function Panel (08/25/2023 3:24 [...] Organization Address City/[facility]/ZIP Co de Phone Number [facility] [address] [place] [address] * Magnesium (08/25/2023 3:24 AM CDT) Magnesium, S 2.2 1.7 - 2.3 mg/dL 08/25/2023 4:36 AM CDT DTL Blood (Blood, Venous) 08/25/2023 3:24 AM CDT 08/25/2023 4:19 AM CDT Boubacar Brock M.D. LAB BLOOD ADD-ON Performing Organization Address City/[facility]/ZIP Co de Phone Number [facility] [address] [place] [address], [facility] [address] [place] [address] * Heparin Anti-Xa Assay (08/25/2023 3:24 AM CDT) [facility] Heparin Anti-Xa, P 0.31 IU/mL 2023 [...] Boubacar Brock M.D. LAB BLOOD NON ADD-ON [facility] [address] [facility] [address] [place] [address] * (ABNORMAL) CBC without Differential (08/24/2023 5:28 AM CDT) [facility] Hemoglobin 8.1(L) 13.2 - 16.6 g/dL [...] Organization Address City/[facility]/ZIP Co de Phone Number [facility] [address] [place] [address] * Magnesium (08/24/2023 5:28 AM CDT) Magnesium, S 2.3 1.7 - 2.3 mg/dL 08/24/2023 6:19 AM CDT DTL Blood (Blood, Venous) 08/24/2023 5:28 AM CDT 08/24/2023 6:00 AM CDT Boubacar Brock M.D. LAB BLOOD ADD-ON Performing Organization Address City/[facility] Co de Phone Number [facility] [address] [place] [address], [place] [address] * (ABNORMAL) Renal Function Panel (08/24/2023 5:28 [...] CDT Boubacar Brock M.D. LAB BLOOD ADD-ON [address] [address], [facility] [address] [address] * Heparin Anti-Xa Assay (08/24/2023 5:28 AM [...] LAB BLOOD NON ADD-ON Performing Organization Address City/[facility]/ZIP Co de Phone Number [facility] [address] [place] [address] * (ABNORMAL) Potassium (08/23/2023 9:58 PM CDT) Potassium, S 3.5(L) 3.6 - 5.2 mmol/L 08/23/2023 10:45 PM CDT DT Blood (Blood, Venous) 08/23/2023 9:58 PM CDT 08/23/2023 10:30 PM CDT Boubacar Brock M.D. LAB BLOOD ADD-ON Performing Organization Address [facility]/ZIP Co de Phone Number [facility] [address] [place] [address] * (ABNORMAL) Phosphorus Inorganic (08/23/2023 9:58 PM CDT) Phosphorus (Inorganic), S 2.1(L) 2.5 - 4.5 mg/dL 08/23/2023 10:45 PM CDT DT Blood (Blood, Venous) 08/23/2023 9:58 PM CDT 08/23/2023 10:30 PM CDT Paula Hernandez M.D. LAB BLOOD ADD-ON [facility] [address] [place] [address] * Heparin Anti-Xa Assay (08/23/2023 11:37 AM [...] Boubacar Brock M.D. LAB BLOOD NON ADD-ON [address] [address], [facility] [place] [address] * (ABNORMAL) CBC without Differential (08/23/2023 3:42 AM CDT) Pathologist [facility] Hemoglobin 8.3(L) [...] BLOOD ADD-ON Performing Organization Address [facility] Co de Phone Number [facility] [address] [place], [place] [phone] [place] [address] [facility] [address] [place] [address] * Triglycerides (08/23/2023 3:42 AM CDT) Triglycerides [...] BLOOD ADD-ON Performing Organization Address [facility] Co de Phone Number [facility] [address] [place], [place] [phone] [place] [address] [facility] [address] [place] [address] * Magnesium (08/23/2023 3:42 AM CDT) Magnesium, S 2.2 1.7 - 2.3 mg/dL 08/23/2023 4:50 AM CDT DTL Blood (Blood, Venous) 08/23/2023 3:42 AM CDT 08/23/2023 4:19 AM CDT Boubacar Brock M.D. LAB BLOOD ADD-ON [facility] [address] [place] [address], [facility] DTL [facility] [address] [place] [address] * (ABNORMAL) Renal Function Panel (08/23/2023 3:42 [...] CDT Boubacar Brock M.D. LAB BLOOD ADD-ON [facility] [address] [place], [place] [address] [place] [address] * Heparin Anti-Xa Assay (08/23/2023 3:41 AM [...] Boubacar Brock M.D. LAB BLOOD NON ADD-ON [facility] [address] [place], [place] [phone] [place] [address] [address] [place] [address] * Glucose, POCT (08/22/2023 11:38 PM CDT) Glucose, POCT, B 117 70 - 140 mg/dL 08/23/2023 1:06 AM CDT PCLX Site Capillary 08/23/2023 1:06 AM CDT PCLX Last Intake NPO 08/23/2023 1:06 AM CDT PCLX Blood 08/22/2023 11:3 8 PM CDT 08/23/2023 1:06 AM CDT Unknown Provider LAB POCT ORDERABLES- MANUAL Performing Organization Address City/[facility]/ZIP Co de Phone Number POC [facility] [address] [place] [address], [facility] PCLX [facility] POC [address] [place] [address] * Heparin Anti-Xa Assay (08/22/2023 10:14 PM [...] LAB BLOOD NON ADD-ON Performing Organization Address City/[facility] Co de Phone Number [facility] [address] [place] [address], [facility] DTL [facility] [address] [place] [address] * CT Abdomen Pelvis without IV Contrast [...] Boubacar Brock M.D. [place] [address], [facility] [address] [place] [address] * Creatinine, Body Fluid (08/22/2023 3:30 PM [...] transport rates. All other fluids refer to www.Bloo[employer].com for further interpretive information. This test has been modified from the wort extractor's instructions. Its performance characteristics were determined by [facility] in a manner consistent with CLIA requirements. This test has not been cleared or approved by the U.S. Food and Drug Administration. Fluid Type, Creatinine Fluid, Abdomen 08/22/2023 3:52 PM CDT DTL Fluid (Abdomen) 08/22/2023 3 :30 PM CDT 08/22/2023 6:36 PM CDT Corin Ring M.D. LAB BODY FLUIDS AND STOOLS ORDERABLES [facility] [address] [place] [address], [facility] [address] [place] [address] * Transfuse Red Blood Cells : (08/22/2023 [...] of a right IJ vein single-lumen 4 Cypriot tunneled PowerPICC ready for immediate use. NR [...] advanced into the IVC and a 4 Cypriot dilator advanced over the wire and attached to a one-way stopcock. A suitable exit site in the right anterior chest was anesthetized and a small incision made. A 4 Cypriot single-lumen PowerPICC was then tunneled from the [...] Wireadvanced into the IVC and a 4 Cypriot dilator advanced over the wire andattached to a one-way stopcock. A suitable exit site in the right anteriorchest was anesthetized and a small incision made. A 4 Cypriot single-lumen PowerPICC was then tunneled fromthe skin [...] of a right IJ vein single-lumen 4 Cypriot tunneled PowerPICCready for immediate use. NR Kimi [...] Organization Address City/[facility]/ZIP Co de Phone Number [facility] [address] [place] [address], [facility] STMA [facility] [address] [place] [address] * Type and Screen (with Reflex Antibody [...] BANK T EST ORDERABLES Performing Organization Address City/[facility]/ZIP Co de Phone Number [facility] [address] [place] [address], [facility] STRM [facility] [address] [place] [address] * (ABNORMAL) Comprehensive Metabolic Panel (08/22/2023 2:40 [...] - 1.2 mg/dL 08/22/2023 3:41 AM CDT DT Blood (Blood, Venous) 08/22/2023 2:40 AM CDT 08/22/2023 3:17 AM CDT Latisha Whitehead M.D. LAB BLOOD ADD-ON Performing Organization Address [facility]/ZIP Co de Phone Number [facility] [address] [place], [place] [phone] [place] [address] 200 [place] [address] * Heparin Anti-Xa Assay (08/22/2023 2:40 AM [...] BLOOD NON AD D-ON Performing Organization Address City/[facility]/ZIP Co de Phone Number [facility] [address] [place], [place] [phone] [place] [address] [address] [place] [address] * (ABNORMAL) APTT (Activated Partial Thromboplastin Time) (08/22/2023 2:40 AM CDT) Activated Partial Thrombopl Time, P 64(H) 25 - 37 sec 08/22/2023 3:12 AM CDT STMA Blood (Blood, Venous) 08/22/2023 2:40 AM CDT 08/22/2023 3:01 AM CDT Latisha Whitehead M.D. LAB BLOOD ADD-ON Performing Organization Address City/[facility] Co de Phone Number [facility] [address] [facility] [address] [place] [address] * Triglycerides (08/21/2023 7:32 AM CDT) Triglycerides [...] LAB BLOOD ADD-O N Performing Organization Address [facility] Co de Phone Number [facility] [address] [place] [address], [facility] [address] [place] [address] * Phosphorus Inorganic (08/21/2023 7:32 AM CDT) Phosphorus (Inorganic), S 2.6 2.5 - 4.5 mg/dL 08/21/2023 9:03 AM CDT DT Blood (Blood, Venous) 08/21/2023 7:32 AM CDT 08/21/2023 8:38 AM CDT Lizette Harvey M.D. LAB BLOOD ADD-O N [facility] [address] [place] [address], [facility] 200 [place] [address] * Magnesium (08/21/2023 7:32 AM CDT) Magnesium, S 2.3 1.7 - 2.3 mg/dL 08/21/2023 9:03 AM CDT DTL Blood (Blood, Venous) 08/21/2023 7:32 AM CDT 08/21/2023 8:38 AM CDT Lizette Harvey M.D. LAB BLOOD ADD-O N [facility] [address] [place] [address], [facility] [address] [place] [address] * (ABNORMAL) Basic Metabolic Panel (08/21/2023 7:32 [...] LAB BLOOD ADD-O N Performing Organization Address [facility] Co de Phone Number [facility] [address] [place] [address], [facility] DTL [facility] [address] [place] [address] * (ABNORMAL) CBC without Differential (08/21/2023 7:32 [...] LAB BLOOD ADD-O N Performing Organization Address [facility]/ZIP Co de Phone Number [facility] [address] [place] [address] * Heparin Anti-Xa Assay (08/21/2023 7:32 AM [...] Boubacar Brock M.D. LAB BLOOD NON ADD-ON [facility] [address] [place] [address] * (ABNORMAL) APTT (Activated Partial Thromboplastin Time) (08/21/2023 7:32 AM CDT) Pathologist [facility] Activated Partial Thrombopl Time, P 49(H) 25 - 37 sec 08/21/2023 8:31 AM CDT DT Blood (Blood, Venous) 08/21/2023 7:32 AM CDT 08/21/2023 8:06 AM CDT Boubacar Brock M.D. LAB BLOOD ADD-ON [address] [facility] [place] [address] [place] [address] * Place peripherally inserted central catheter (PICC) [...] same-day CT. Rightureteral stent. Lizette Harvey M.D. [facility] PROCEDURES * CT Abdomen Pelvis [...] [facility] CT PROCEDUR ES * (ABNORMAL) Basic Metabolic Panel (08/20/2023 3:19 AM CDT) [facility] Potassium, S 3.7 3.6 - 5.2 [...] Paula Hernandez M.D. LAB BLOOD ADD-ON [facility] [place] [address], [facility] [place] [address] * (ABNORMAL) CBC without Differential (08/20/2023 3:19 [...] Organization Address City/[facility]/ZIP Co de Phone Number [facility] [address] [place] [address] * (ABNORMAL) APTT (Activated Partial Thromboplastin Time) (08/20/2023 3:19 AM CDT) Activated Partial Thrombopl Time, P 52(H) 25 - 37 sec 08/20/2023 4:33 AM CDT DT Blood (Blood, Venous) 08/20/2023 3:19 AM CDT 08/20/2023 4:10 AM CDT Boubacar Brock M.D. LAB BLOOD ADD-ON Performing Organization Address [facility]/ZIP Co de Phone Number [facility] [address] [place], [place] [address] [place] [address] 200 [place] [address] * (ABNORMAL) APTT (Activated Partial Thromboplastin Time) (08/19/2023 10:57 AM CDT) Activated Partial Thrombopl Time, P 54(H) 25 - 37 sec 08/19/2023 11:44 AM CDT DT Blood (Blood, Venous) 08/19/2023 10:57 AM CDT 08/19/2023 11:26 AM CDT Boubacar Brock M.D. LAB BLOOD ADD-ON Performing Organization Address City/[facility]/ZIP Co de Phone Number [facility] [address] [place] [address] * (ABNORMAL) APTT (Activated Partial Thromboplastin Time) (08/19/2023 4:51 AM CDT) [facility] Activated Partial Thrombopl Time, P 59(H) 25 - 37 sec 08/19/2023 5:53 AM CDT DTL Blood (Blood, Venous) 08/19/2023 4:51 AM CDT 08/19/2023 5:36 AM CDT Boubacar Brock M.D. LAB BLOOD ADD-ON [facility] [address] [place], [place] [address] [place] [address] * (ABNORMAL) APTT (Activated Partial Thromboplastin Time) (08/18/2023 10:03 PM CDT) [facility] Activated Partial Thrombopl Time, P 63(H) 25 - 37 sec 08/18/2023 10:41 PM CDT DT Blood (Blood, Venous) 08/18/2023 10:03 PM CDT 08/18/2023 10:19 PM CDT Boubacar Brock M.D. LAB BLOOD ADD-ON [facility] [address] [place], [place] [address] [place] [address] * (ABNORMAL) APTT (Activated Partial Thromboplastin Time) (08/18/2023 2:50 PM CDT) [facility] Activated Partial Thrombopl Time, P 64(H) 25 - 37 sec 08/18/2023 3:25 PM CDT DTL Blood (Blood, Venous) 08/18/2023 2:50 PM CDT 08/18/2023 3:07 PM CDT Boubacar Brock M.D. LAB BLOOD ADD-ON Performing Organization Address City/[facility]/ZIP Co de Phone Number [facility] [address] [place] [address] * (ABNORMAL) APTT (Activated Partial Thromboplastin Time) (08/18/2023 6:42 AM CDT) Activated Partial Thrombopl Time, P 61(H) 25 - 37 sec 08/18/2023 7:28 AM CDT DTL Blood (Blood, Venous) 08/18/2023 6:42 AM CDT 08/18/2023 7:04 AM CDT Boubacar Brock M.D. LAB BLOOD ADD-ON Performing Organization Address City/[facility]/ZIP Co de Phone Number [facility] [address] [place] [address] * (ABNORMAL) APTT (Activated Partial Thromboplastin Time) (08/17/2023 11:04 PM CDT) Activated Partial Thrombopl Time, P 40(H) 25 - 37 sec 08/17/2023 11:46 PM CDT DTL Blood (Blood, Venous) 08/17/2023 11:04 PM CDT 08/17/2023 11:31 PM CDT Boubacar Brock M.D. LAB BLOOD ADD-ON [facility] [address] [place] [address] * US Lower Extremity Veins Bilateral (08/17/2023 [...] and management can be found on the LexpliqueyoExpert site. Link [email or web address] Findings discussed with ??Tayler Greenwood, ?? ([id number]) on 08/17/2023 7:11 PM. Procedure Note Jj [...] be found on theAskMayoExpert site. [email or web address] Findings discussed with Tayler Greenwood MD ([id number]) on 08/17/2023 7:11 PM. IMPRESSION: 1. Aging, [...] BLOOD ADD-ON Performing Organization Address [facility] Co de Phone Number [facility] [address] [place] [address], [facility] [address] [place] [address] * ECG 12 Lead (08/16/2023 9:43 PM CDT) Ventricular Rate ECG/Min 134 BPM MUSE TN Interval 136 ms MUSE QRSD Interval 76 ms MUSE QT Interval 298 ms MUSE QTC Interval 445 ms MUSE P [place] 29 degrees MUSE R [place] -6 degrees MUSE T Wave [place] 21 degrees MUSE 08/16/2023 9:43 PM CDT [...] ECG ORDERABLES Performing Organization Address [facility] Co de Phone Number MUSE NA [...] CDT Geneva Azar M.D. LAB BLOOD ADD-ON [facility] [address] [place] [address], [facility] [address] [place] [address] * (ABNORMAL) Basic Metabolic Panel (08/16/2023 9:40 [...] CDT Geneva Azar M.D. LAB BLOOD ADD-ON [facility] [address] [place] [address], [facility] [address] [place] [address] * Transfuse Red Blood Cells : (08/16/2023 12:04 PM CDT) Corin Ring M.D. BLOOD TRANSFUSION OR DERABLES * Transfuse Red Blood Cells : , 1 Units (08/16/2023 12:04 PM CDT) Corin Ring M.D. BLOOD TRANSFUSION OR DERABLES * (ABNORMAL) Basic Metabolic Panel (08/16/2023 3:10 AM CDT) [facility] Potassium, S 4.2 3.6 - 5.2 [...] CDT Paula Hernandez M.D. LAB BLOOD ADD-ON [facility] [address] [place] [address], [facility] [address] [address] * (ABNORMAL) CBC without Differential (08/16/2023 3:10 [...] Paula Hernandez M.D. LAB BLOOD ADD-ON [facility] [address] [place] [address], [facility] DTL [facility] [address] [place] [address] * (ABNORMAL) CBC with Differential, Blood (08/15/2023 [...] Organization Address City/[facility]/ZIP Co de Phone Number [facility] [address] [place] [address], [place] DTL [facility] [address] [place] [address] [facility] [address] [place] [address] * DX Abdomen 1 View (08/15/2023 1:19 [...] CDT 08/15/2023 12:03 PM CDT Rae Gonzalez [employer]AD[employer], OVEN ATTENDANT, DNAP LAB BLOO D NON ADD-ON [facility] [address] [place] [address], [facility] [address] [place] [address] * Lactate, B - Intra-op (08/15/2023 11:56 AM CDT) Lactate, B 1.1 0.5 - 2.2 mmol/L 08/15/2023 12:06 PM CDT STMA Blood (Blood, Venous) 08/15/2023 11:56 AM CDT 08/15/2023 12:03 PM CDT Hayde Song M.D. LAB BLOOD NON ADD-O N Performing Organization Address City/[facility] Co de Phone Number [facility] [address] [place], [place] [address] [address] [place] [address] * (ABNORMAL) Glucose, Whole Blood (08/15/2023 11:56 AM CDT) Glucose 144(H) 70 - 140 mg/dL 08/15/2023 12:06 PM CDT [facility] Blood (Blood, Arterial Line) 08/15/2023 11:56 AM CDT 08/15/2023 12:03 PM CDT Hayde Song M.D. LAB BLOOD ADD-ON [facility] [address] [place] [address], [facility] [address] [place] [address] * Potassium, Blood (08/15/2023 11:56 AM CDT) Potassium, B 4.3 3.6 - 5.2 mmol/L 08/15/2023 12:07 PM CDT STMA Blood (Blood, Arterial Line) 08/15/2023 11:56 AM CDT 08/15/2023 12:03 PM CDT Hayde Song M.D. LAB BLOOD NON ADD-O N Performing Organization Address City/[facility]/ZIP Co de Phone Number [facility] [address] [place] [address] * Sodium, B (08/15/2023 11:56 AM CDT) Pathologist [facility] Sodium, B 135 135 - 145 mmol/L 08/15/2023 12:06 PM CDT [facility] Blood (Blood, Arterial Line) 08/15/2023 11:56 AM CDT 08/15/2023 12:03 PM CDT Hayde Song M.D. LAB BLOOD NON ADD-O N Performing Organization Address City/[facility] Co de Phone Number [facility] [address] [place] [address] * (ABNORMAL) Calcium, Ionized (08/15/2023 11:56 AM CDT) [facility] Calcium, Ionized, B 4.53(L) 4.65 - 5.30 mg/dL 08/15/2023 12:07 PM CDT [facility] Blood (Blood, Arterial Line) 08/15/2023 11:56 AM CDT 08/15/2023 12:03 PM CDT Hayde Song M.D. LAB BLOOD NON ADD-O N [facility] [address] [place] [address] * (ABNORMAL) Blood Gas with Coox, Arterial [...] Song M.D. LAB BLOOD NON ADD-O N [facility] [address] [place] [address], [facility] [place] [address] [place] [address] * [place] Fluoro Less Than 1 Hour [...] CDT 08/15/2023 10:28 AM CDT Rae Gonzalez [employer]ADER, OVEN ATTENDANT, DNAP LAB BLOO D NON ADD-ON [facility] [address] [place] [address], [facility] [address] [place] [address] * Lactate, B - Intra-op (08/15/2023 10:28 AM CDT) Lactate, B 1.1 0.5 - 2.2 mmol/L 08/15/2023 10:30 AM CDT STMA Blood (Blood, Venous) 08/15/2023 10:28 AM CDT 08/15/2023 10:28 AM CDT Hayde Song M.D. LAB BLOOD NON ADD-O N [facility] [address] [place] [address], [facility] [address] [place] [address] * Glucose, Whole Blood (08/15/2023 10:28 AM CDT) Glucose 134 70 - 140 mg/dL 08/15/2023 10:30 AM CDT STMA Blood (Blood, Arterial Line) 08/15/2023 10:28 AM CDT 08/15/2023 10:28 AM CDT Hayde Song M.D. LAB BLOOD ADD-ON Performing Organization Address City/State/[facility] Co de Phone Number [facility] [address] [place], [place] [address] [place] [address] 200 [place] [address] * Potassium, Blood (08/15/2023 10:28 AM CDT) Potassium, B 4.1 3.6 - 5.2 mmol/L 08/15/2023 10:31 AM CDT STMA Blood (Blood, Arterial Line) 08/15/2023 10:28 AM CDT 08/15/2023 10:28 AM CDT Hayde Song M.D. LAB BLOOD NON ADD-O N Performing Organization Address City/[facility] Co de Phone Number [facility] [address] [place], [place] [address] [place] [address] [address] [place] [address] * Sodium, B (08/15/2023 10:28 AM CDT) Sodium, B 135 135 - 145 mmol/L 08/15/2023 10:30 AM CDT STMA Blood (Blood, Arterial Line) 08/15/2023 10:28 AM CDT 08/15/2023 10:28 AM CDT Hayde Song M.D. LAB BLOOD NON ADD-O N [facility] [address] [place], [place] [address] [place] [address] 200 [place] [address] * (ABNORMAL) Calcium, Ionized (08/15/2023 10:28 AM CDT) Calcium, Ionized, B 4.25(L) 4.65 - 5.30 mg/dL 08/15/2023 10:31 AM CDT STMA Blood (Blood, Arterial Line) 08/15/2023 10:28 AM CDT 08/15/2023 10:28 AM CDT Hayde Song M.D. LAB BLOOD NON ADD-O N [facility] [address] [place] [address], [facility] STMA [facility] [address] [place] [address] * (ABNORMAL) Blood Gas with Coox, Arterial (08/15/2023 10:28 AM CDT) [facility] Signature pO2 171(H) 83 - 108 mm [...] Song M.D. LAB BLOOD NON ADD-O N [facility] [address] [place] [address], [place] STMA [facility] [address] [place] [address] * Bacteria / Yomaira Culture, Blood #2 (08/15/2023 3:33 AM CDT) Pathologist [facility] Bacteria/Leyla da Culture, Blood No growth after 5 days of incubation. 08/20/2023 6:02 AM CDT DTL Blood (Blood, Peripheral Draw) 08/15/2023 3:33 AM CDT 08/15/2023 5:58 AM CDT Comment:Specimen Source Site : Blood Narrative [facility] - 08/20/2023 6:02 AM CDT Received Bactec aerobic and Bactec anaerobic bottles Carlos Alberto Henson M.D. LAB MICROBIOLOGY - [facility] ORDERABLES [facility] [address] [place] [address], [facility] [address] [place] [address] * (ABNORMAL) Basic Metabolic Panel (08/15/2023 3:31 [...] BLOOD ADD-ON Performing Organization Address [facility] [place] [address] * Bacteria / Yomaira Culture, Blood #1 (08/15/2023 3:31 AM CDT) Pathologist [facility] Bacteria/Leyla da Culture, Blood No growth after 5 days of incubation. 08/20/2023 6:02 AM CDT DTL Blood (Blood, Peripheral Draw) 08/15/2023 3:31 AM CDT 08/15/2023 5:59 AM CDT Comment:Specimen Source Site : Blood Carlos Alberto Henson M.D. LAB MICROBIOLOGY - G ENERAL ORDERABLES Performing Organization Address [facility] [place] [address] * (ABNORMAL) CBC with Differential, Blood (08/15/2023 [...] Carlos Alberto Henson M.D. LAB BLOOD ADD-ON [facility] [address] [place] [address], [facility] DTL [facility] [address] [place] [address] [facility] [address] [place] [address] * (ABNORMAL) CBC with Differential, Blood (08/14/2023 [...] Carlos Alberto Henson M.D. LAB BLOOD ADD-ON [facility] [address] [place] [address], [facility] STMA [facility] [address] [place] [address] [facility] [address] [place] [address] * Transfuse Red Blood Cells : , 2 Units (08/14/2023 6:55 PM CDT) [facility] BLOOD TRANSFUSION OR DERABLES * Transfuse Red Blood Cells : (08/14/2023 6:55 PM CDT) [facility] BLOOD TRANSFUSION OR DERABLES * Transfuse Red Blood Cells : (08/14/2023 3:40 PM CDT) [facility] Henson M.D. BLOOD TRANSFUSION OR DERABLES * (ABNORMAL) CBC with Differential, Blood (08/14/2023 3:18 AM CDT) [facility] Signature Hemoglobin 7.6(L) 13.2 - 16.6 g/dL [...] Carlos Alberto Henson M.D. LAB BLOOD ADD-ON [facility] [address] [place] [address], [facility] STMA [facility] [address] [place] [address] [facility] [address] [place] [address] * (ABNORMAL) Basic Metabolic Panel (08/14/2023 3:18 [...] Carlos Alberto Henson M.D. LAB BLOOD ADD-ON [facility] [address] [place] [address], [facility] [address] [place] [address] * Type and Screen (with Reflex Antibody [...] TEST ORDERABLES Performing Organization Address [facility]/ZIP Co de Phone Number [facility] [address] [place], [place] [address] [address] [place] [address] * (ABNORMAL) Bacteria / Yomaira Culture, Blood #1 (08/13/2023 7:35 PM CDT) Bacteria/Cand jessica Culture, Blood ESCHERICHIA COLI Growth after 11 Hours (A) 08/16/2023 11:17 AM CDT DTL Comment: 3 of 3 Bottles, Susceptibilities performed on another specimen [id number] Blood (Blood, Peripheral Draw) 08/13/2023 7:35 PM CDT 08/13/2023 8:15 PM CDT Comment:Specimen Source Site : Blood Carlos Alberto Henson M.D. LAB MICROBIOLOGY - G ENERAL ORDERABLES Performing Organization Address City/[facility]/ZIP Co de Phone Number [facility] [address] [place] [address], [place] DTL [facility] [address] [place] [address] * ECG 12 Lead (08/13/2023 7:02 PM CDT) Ventricular Rate ECG/Min 128 BPM MUSE TN Interval 138 ms MUSE QRSD Interval 64 ms MUSE QT Interval 304 ms MUSE QTC Interval 443 ms MUSE P [place] 45 degrees MUSE R [place] 34 degrees MUSE T Wave [place] 46 degrees MUSE 08/13/2023 7:02 PM CDT 08/13/2023 7:13 PM CDT Impressions MUSE - 08/13/2023 7:13 PM CDT Sinus tachycardia Otherwise normal ECG No previous ECGs available Reviewed by BETTY Walton Narrative Procedure Note Lucas Lee M.D. - 08/13/2023 IMPRESSION: Sinus tachycardia Otherwise normal ECG No previous ECGs available Reviewed by BETTY Walton Toby Wright ECG ORDERABLES Performing Organization Address [facility] Co de Phone Number MUSE NA [...] CDT Comment:Specimen Source Site : Blood Narrative [facility] - 08/16/2023 11:17 AM CDT Received [...] Carlos Alberto Henson M.D. LAB MICROBIOLOGY - [facility] ORDERABLES [facility] [address] [place] [address], [place] DTL [facility] [address] [place] [address] * Magnesium (08/13/2023 5:27 PM CDT) Magnesium, S 1.9 1.7 - 2.3 mg/dL 08/13/2023 6:12 PM CDT DTL Blood (Blood, Venous) 08/13/2023 5:27 PM CDT 08/13/2023 5:58 PM CDT Carlos Alberto Henson M.D. LAB BLOOD ADD-ON [facility] [address] [place] [address], [facility] DTL [facility] [address] [place] [address] * (ABNORMAL) Hepatic Function Panel (08/13/2023 5:27 [...] Carlos Alberto Henson M.D. LAB BLOOD ADD-ON [facility] [address] [place] [address], [facility] DTL [facility] [address] [place] [address] * (ABNORMAL) Basic Metabolic Panel (08/13/2023 5:27 [...] Carlos Alberto Henson M.D. LAB BLOOD ADD-ON [facility] [address] [place] [address], [facility] STMA [facility] [address] [place] [address] * Prothrombin Time (PT) (08/13/2023 5:27 PM [...] Carlos Alberto Henson M.D[place] [address], [place] [address] * (ABNORMAL) CBC with Differential, Blood (08/13/2023 5:27 PM CDT) [facility] Hemoglobin 10.0(L) 13.2 - 16.6 g/dL [...] Carlos Alberto Henson M.D. LAB BLOOD ADD-ON [facility] [address] STMA [facility] [address] [place] [address] [facility] [address] [place] [address] * (ABNORMAL) Dipstick, Urine (08/13/2023 5:07 PM [...] Organization Address City/[facility]/ZIP Co de Phone Number [facility] [address] [place], [place] [address] [place] [address] [address] [place] [address] * Osmolality, Urine (08/13/2023 5:07 PM CDT) Osmolality, U 351 150 - 1150 mOsm/kg 08/13/2023 7:46 PM CDT DTL Urine 08/13/2023 5:07 PM CDT 08/13/2023 5:45 PM CDT Carlos Alberto Henson M.D. LAB URINE ORDERABLES Performing Organization Address City/[facility] Co de Phone Number [facility] [address] [place], [place] [address] [place] [address] [address] [place] [address] * (ABNORMAL) Microscopic Manual (08/13/2023 5:07 PM [...] Organization Address City/[facility]/ZIP Co de Phone Number [facility] [address] [place] [address], [facility] [address] [place] [address] * pH, Random, Urine (08/13/2023 5:07 PM CDT) pH, Random, U 7.0 4.5 - 8.0 08/13/2023 7:46 PM CDT DTL Urine 08/13/2023 5:07 PM CDT 08/13/2023 5:45 PM CDT Carlos Alberto Henson M.D. LAB URINE ORDERABLES [facility] [address] [place] [address], [place] [facility] [address] [place] [address] * (ABNORMAL) Bacterial Culture, Aerobic + Susceptibility, [...] Carlos Alberto Henson M.D. LAB MICROBIOLOGY - [facility] ORDERABLES [address] [address], [facility] [address] [address] * (ABNORMAL) Urinalysis, with Microscopic: Urine, Midstream [...] CDT DTL Predicted 24 [place] [address](H) <229 mg/24 h 08/13/2023 8:50 PM CDT DTL Predicted Range [id number] mg/24 h 08/13/2023 8:50 PM CDT DTL Comment Micro done on <2.5 mL 08/13/2023 7:55 PM CDT DTL Urine (Urine, Midstream) 08/13/2023 5:07 PM CDT 08/13/2023 5:44 PM CDT Carlos Alberto Henson M.D. LAB URINE ORDERABLES [facility] [address] [place] [address], [place] [facility] [address] [place] [address] * Interpretation of Outside CT Abdomen and [...] use home supply. 08/17/23: Id'ed by [facility] Rx# [id number], filled 07/22/23. HAZARDOUS - Handle with care. Swallow whole. Do NOT crush, chew or open capsule. Given 08/26/2023 9:12 AM CDT 120 mg Given 08/25/2023 9:08 AM CDT 120 mg Given 08/24/2023 9:12 AM CDT 120 mg Lactated Ringer's 1.5 mL/kg/hr ? 75 kg Sells weight (112.5 mL/hr, rounded to 113 mL/hr), intravenous, Continuous, Starting on Tue08/22/23 at 1030, Conditional Phase Pre-Gastrografin Administration. (Rate = 1.5 mL/kg/hr ideal body weight) Lactated Ringer's 0.75 mL/kg/hr ? 75 kg Sells weight (56.25 mL/hr, rounded to 56.3 mL/hr), [...] Howe R.N.)1242 (Given - Provider: Tayler Forrest RJonahN.)1831 (Given - Provider: Mary Rosado RRitesh.) 0019 (Not Given - Provider: Fatuma See R.N. - Reason: Patient/family refused)0639 (Given - Provider: Mayur DelcidN.)1136 (Given - Provider: Mayur SubramanianN.)1750 (Not Given - Provider: Paola Salazar R.N. [...] R.N.)1357 (Not Given - Provider: Lupe Valdez RJonahNJonah - Reason: Contraindicated) cefdinir suspension 300 mg [...] RNarendra) 0640 (Given - Provider: Fatuma See RJonahNJonah)1750 (Given - Provider: Paola Salazar R.N.) 0627 [...] may use home supply. 08/17/23: Id'ed by [facility] Rx# [id number], filled 07/22/23. HAZARDOUS - Handle with care. Swallow whole. Do NOT crush, chew or open capsule. 09 (Given - Provider: Tayler Forrest R.N. - Comment: Pat Murray, -2nd RN) 0908 (Given - Provider: Tayler Forrest R.N. - Comment: Pt 's own med from home) 09 (Given - Provider: Lupe Valdez R.N.) fat emulsion jjf-zes-pjjfu & fish oil infusion 50 g (SMOFlipid) (COMPLETED) 50 g, intravenous, at 10.4 mL/hr, Administer over 24 Hours, Every 24 hours, First dose on Tue08/22/23 at 2100, For 3 doses, Use a 1.2 micron filter. When fat emulsion is ordered along with a CPN containing iron dextran, administer fat emulsion and CPN through separate lines. 2154 (New Bag - Provider: Fatuma See R.N.) 1542 (Handoff - Provider: Tayler Forrest R.N. - [...] older 0615 (Given - Provider: Brittni Howe RJonahNJonah)1520 (Given - Provider: Mary Rosado R.N.) 0638 (Given - Provider: Fatuma See RJonahNJonah)1749 (Given - Provider: Paola Salazar RJonahNJonah) 0626 (Given - Provider: Edith Simental RJonahNJonah)1600 (Due) Continuous Medication Order 08/24/2023 08/25/2023 08/26/2023 Adult central parenteral nutrition (CPN) () intravenous, at 41.7 mL/hr, Administer over 24 Hours, Continuous PN, Starting on Tue08/24/23 at 2100, For 24 hours, Use a 0.22 micron filter., Indication: Small bowel obstruction (distal) 2155 (New Bag - Provider: Fatuma See RNarendra) 154 (Handoff - Provider: Tayler Forrest R.N. [...] RN)2124 (New Bag - Provider: Paola Salazar R.N.)7018 (Handoff - Provider: Edith Simental R.N. - Comment: herbert knight RN) 0407 (Rate/Dose Change - Provider: Edith Simental R.N.)0729 (Handoff - Provider: Lupe Valdez R.N. - Comment: Verified with JAMEL Sharma)1153 (Stopped - Provider: Lupe Valdez R.N.) Lactated Ringer's 1.5 mL/kg/hr ? 75 kg Sells weight (112.5 mL/hr, rounded to 113 mL/hr), intravenous, Continuous, Starting on Tue08/22/23 at 1030, Conditional Phase Pre-Gastrografin Administration. (Rate = 1.5 mL/kg/hr ideal body weight) Lactated Ringer's 0.75 mL/kg/hr ? 75 kg Sells weight (56.25 mL/hr, rounded to 56.3 mL/hr), [...] 1547 documented in this encounter Care Teams Senior Manager Creative Services Relationship Specialty Start Date End Date Elsewhere, Pcp PCP - General Internal Medicine 08/13/23 documented as of this encounter
--- OUTSIDE RECORDS SUMMARY | 2023-11-15 11:58 | XMS_ITS | Encounter Summary ---
Author Organization [facility] Address [address] [place] [address] Care Team Providers Care Rotary Drier Feeder Name Role Phone Elsewhere, Pcp Primary Care Provider Unavailabl e Encounter Details Date Type Department Care Team (Latest Contact Info) Description 08/13/2023 Intake [facility] Social History Tobacco Use Types Packs/Day Years Used Date Smoking Tobacco: Never Smokeless Tobacco: Never [facility] Utilities Answer Date Recorded In [...] your living situation today? I have a [facility] place to live 08/13/2023 Sex and Gender Information Value Date Recorded Sex Assigned at Not on file Gender Identity Not on file Sexual Orientation Not on file documented as of this encounter Plan of Treatment Upcoming Encounters Date Type Department Care Team (Latest Contact Info) Description 12/07/2023 10:15 AM CDT Procedure visit Department of Urology in [place] [address] [place] [address] Burke Strauss M.D. [facility] [place] [address] Discharge Disposition: Home or Self Care 12/07/2023 10:30 AM CDT Office Visit Department of Urology in [place] [address] [place] [address] Burke Strauss M.D. 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
--- OUTSIDE RECORDS SUMMARY | 2023-11-15 11:59 | XMS_ITS | Clinical Summary ---
Author Organization [facility] Address [place], [place] [address] Care Team Providers Care Tool Design Checker Name Role Phone Cesar Mccollum MD Primary Care Provider Nicola Ware MD Unavailable [phone] Mireya Tan MD Unavailable [phone] [facility] Unavailable [phone] Allergies No known active allergies Medications Medication [...] with meals. Active rosuvastatin (CRESTOR) 40 mg tabletIndications:Hy perlipidemia, unspecified hyperlipidemia type TAKE 1 TABLET(40 MG) BY MOUTH AT BEDTIME 90 Tablet 3 05/09/2023 Active clopidogreL (PLAVIX) 75 mg tabletIndications:Co ronary artery disease, unspecified vessel or lesion type, unspecified whether angina present, unspecified whether [place] or transplanted heart Take 1 Tablet (75 [...] a meal. 90 Capsule 3 07/21/2023 Active iron, carbonyl (Perfect Iron) 25 mg iron tabIndications:Chron ic blood loss anemia 1 tablet p.o. daily 10/04/2023 Active acetaminophen (TYLENOL EXTRA STRGTH) 500 mg tabletIndications:Pa in Take 2 Tablets (1,000 mg) by mouth 3 times daily if needed for Pain. Max acetaminophen dose: 4000mg in 24 hrs. 10/04/2023 Active amLODIPine (NORVASC) 10 mg tabletIndications:Be nign essential HTN Take 0.5 Tablets (5 mg) by mouth once daily. 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 ESV=541.87 Bladder mass 02/29/2020 04/30/2020 Hematuria 02/29/2020 03/05/2020 Acute deep vein thrombosis (DVT) 02/29/2020 11/20/2020 S/P coronary angioplasty 11/03/2016 Chest pain 09/15/2016 03/05/2020 Elevated prostate specific antigen (PSA) 10/06/2010 03/05/2020 Hip arthritis 10/06/2010 03/05/2020 Colon polyp 07/15/2010 PATRICE (acute kidney injury) Obstructive uropathy 020 Encounters Date Type Department Care Team Description 11/14/2023 11:30 AM CDT Home Care Visit [address] [address] Brittanie Prieto, JAMEL SN - MISSED VISIT 11/11/2023 10:30 AM CDT Home Care Visit [address] [address] Raffy Carter, PT PT - HOME VISIT 11/09/2023 9:00 AM CDT Home Care Visit [address] [address] Barbara Fuentes, JAMEL SN - HOME VISIT 11/07/2023 Home Care Visit [address] [address] Rufina Cosby RN CARE COORDINATION 11/04/2023 10:30 AM CDT Home Care Visit [address] [address] Raffy Carter, PT PT - HOME VISIT 10/31/2023 11:00 AM CDT Home Care Visit [address] [address] Doreen Hussein, JAMEL SN - HOME VISIT 10/31/2023 2:30 AM CDT Home Care Visit [address] [address] Liz Fang, [facility] CROP SUPERVISOR - MISSED VISIT 10/28/2023 10:30 AM CDT Home Care Visit [address] [address] Raffy Carter, PT PT - HOME VISIT 10/25/2023 11:30 AM CDT Home Care Visit [address] [address] Raffy Carter, PT PT - REASSESSMENT 10/24/2023 11:00 AM CDT Home Care Visit [address] [address] Doreen Hussein, JAMEL SN - HOME VISIT 10/24/2023 10:00 AM CDT Home Care Visit [address] [address] Liz Fang LICSW CROP SUPERVISOR - HOME VISIT 10/21/2023 12:00 PM CDT Home Care Visit [address] [address] Raffy Carter, PT PT - HOME VISIT 10/20/2023 10:35 AM CDT Office Visit [facility] [address] [place] [address] Cesar Mccollum MD Follow Up; Concerns (Discuss protocol for hyperbaric treatment at hospital) 10/20/2023 Travel 10/19/2023 9:45 AM CDT Home Care Visit [address] [address] Rigo Heart RN SN - HOME VISIT 10/18/2023 Home Care Visit [address] [address] Milli Torre RN CARE COORDINATION 10/17/2023 3:00 PM CDT Home Care Visit [address] [address] Raffy Carter, PT PT - HOME VISIT 10/17/2023 10:00 AM CDT Home Care Visit [address] [address] Liz Fang [facility] CROP SUPERVISOR - INITIAL ASSESSMENT 10/14/2023 Home Care Visit [address] [address] Raffy Carter, PT PT - MISSED VISIT 10/12/2023 Telephone [facility] [address] [place] [address] Cesar Mccollum MD Questions 10/11/2023 7:15 AM CDT Home Care Visit [address] [address] Manav Montero, RN SN - WOUND/OSTOMY CHART CONSULT 10/10/2023 4:00 PM CDT Home Care Visit [address] [address] Deonna Oliveira, NURSE CARE MANAGER PT - HOME VISIT 10/10/2023 10:30 AM CDT Home Care Visit [address] [address] Milli Torre, RN SN - HOME VISIT 10/08/2023 9:00 AM CDT Home Care Visit [address] [address] Justyna Hernandez, JAMEL SN - INITIAL ASSESSMENT 10/08/2023 Telephone [facility] [address] [place] [address] Cesar Mccollum MD Home Care (BP med parameters) 10/07/2023 11:30 AM CDT Home Care Visit [address] [address] Raffy Carter, PT PT - HOME VISIT 10/07/2023 Home Care Visit [address] [address] Milli Torre, RN CARE COORDINATION 10/06/2023 1:00 PM CDT Ancillary Procedure [place] [address] [place] [address] 10/06/2023 Travel 10/04/2023 1:00 PM CDT Office Visit [facility] [address] [place] [address] Souleymane Miller MD Follow Up (Annual Follow up /Coronary artery disease) 10/04/2023 10:15 AM CDT Home Care Visit [address] [address] Manav Rodríguez, PT PT - OASIS START OF CARE 10/04/2023 Telephone [facility] [address] [place] [address] Manav Rodríguez, PT Home Care 10/04/2023 Orders Only [facility] [place] [facility] [address] [place] [address] Souleymane Miller MD 1 scan: (1-Ord) NFLD-EKG-10/04/23 10/04/2023 Travel 10/04/2023 Plan of Care Documentation [address] [address] 10/03/2023 Telephone [facility] [address] [place] [address] Cesar Mccollum MD 10/02/2023 Home Care Visit [address] [address] Saul Lawson, RN CARE COORDINATION 10/01/2023 Home Care Visit [address] [address] Saul Lawson, RN CARE COORDINATION 09/29/2023 1:40 PM CDT Office Visit [facility] [address] [place] [address] Cesar Mccollum MD Hospital F/U ([place], urinary problem); Concerns (Bed sore - would like checked) 09/29/2023 Travel 09/23/2023 Telephone [facility] [address] [place] [address] Cesar Mccollum MD Results 09/22/2023 10:30 AM CDT Orders Only [facility] [address] [facility] [place] [address] Lab, [place] Lab 09/22/2023 9:50 AM CDT Nurse/Clinic Staff Only [facility] [address] [place] [address] Dressing Change 09/22/2023 Telephone [facility] [address] [place] [address] Cesar Mccollum MD Results 09/22/2023 Travel 09/21/2023 3:20 PM CDT Nurse/Clinic Staff Only [facility] [address] [place] [address] Procedure (UA collection from jon and neph tube) 09/21/2023 Telephone [facility] [address] [address] Letty Mera MD 09/20/2023 2:15 PM CDT Ancillary Procedure [facility] [address] [facility] [place] [address] 09/20/2023 1:00 PM CDT Office Visit [facility] [address] [facility] [place] [address] Letty Mera MD Hospital F/U (Admission Date: 09/09/2023 Discharge Date: 09/15/23); Wound Check (sacrum & neph tube site. ); Home Care; Concerns (Feels like catheter is falling out - pt states that it is leaking. ) 09/20/2023 Travel 09/15/2023 Transcribe Orders [facility] [address] [place] [address] Provider, Non-Excellian 09/13/2023 Telephone [facility] [address] [facility] [place] [address] Cesar Mccollum MD Procedure (social economist) 08/31/2023 Transcribe Orders [facility] [address] [place] [address] Senthil Alvarez MD 08/30/2023 Orders Only [facility] Scanner 1 scan: (1-Ord) [facility], 08/30/2023 08/23/2023 Transcribe Orders [facility] [address] [place] [address] Provider, Non-Excellian from Last 3 Months Immunizations Name Administration Dates Next Due COVID-19 Vaccine Spikevax (M oderna 50mcg/0.5mL) 12YO+ [id number] Formula PF 07/21/2023,03/08/2023 COVID-19 vaccine (Pfizer-Bio NTech 30mcg/0.3mL) 12YO+ BIVALENT PF, MDV 09/13/2022,01/28/2022 COVID-19 vaccine (Hallpass MediaBio NTech 30mcg/0.3mL) 12YO+ DAYRON-SUCROSE PF, MDV 08/26/2021 COVID-19 vaccine (Hallpass MediaBio NTech 30mcg/0.3mL) PF, MDV 01/13/2021,06/17/2020,2020 Influenza, Inactivated [...] Sign Reading Time Taken Comments Blood Pressure 122/66 11/11/2023 10:40 AM CDT Pulse 66 11/11/2023 10:40 AM CDT Temperature 36.5 ??C (97.7 ??F) 11/11/2023 10:40 AM C DT Respiratory Rate 15 11/11/2023 10:40 AM CDT Oxygen Saturation 97% 11/11/2023 10:40 AM CDT Inhaled Oxygen Concentration - - Weight 80.4 kg (177 lb 3.2 oz) 10/20/2023 10:38 AM CDT Height 177.1 cm (5' 9.72) 07/21/2023 9:05 AM CD T Body Mass Index 25.63 07/21/2023 9:05 AM CDT Plan of Treatment Upcoming Encounters Date Type Department Care Team (Late st Contact Info) Description 11/18/2023 10:30 AM CDT Appointment [address] [address] Raffy Carter, PT [address] [place] [address] 11/21/2023 4:00 AM CDT Home Care Visit [address] [address] Doreen Hussein RN [address] [place] [address] 11/28/2023 4:00 AM CDT Home Care Visit [address] [address] Doreen Hussein, RN [address] [place] [address] 11/30/2023 10:30 AM CDT Office Visit [facility] [address] [place] [address] Cesar Mccollum MD [address] [place] [address] Health Maintenance Due Date Last Done Comments [...] Completed 4 Medical Devices Implanted Type Area Wool Classer Device Identifier Shelf Expiration Date Model / Serial / Lot Stent Uret [id number] Contour - [id number] Implanted:Qty: 1 on 07/18/2023 by Nicola Ware MD at [facility] Right: Ureter [facility] 02/27/2026 [id number] / / [id number] Procedures Procedure Name Priority Date/Time Associated Diagnosis Comments ECHO TTE COMPLETE WO CONTRAST DEBBI 10/06/2023 1:34 PM CDT Coronary artery disease, unspecified vessel or lesion type, unspecified whether angina present, unspecified whether [place]ival[place] or transplanted heart EKG 12 LEAD Routine 10/04/2023 2:15 PM CDT Coronary artery disease, unspecified vessel or lesion type, unspecified whether angina present, unspecified whether [place]ival[place] or transplanted heart MD READING EKG - NO CHARGE, COMP ONLY Routine 10/04/2023 2:14 PM CDT Coronary artery disease, unspecified vessel or lesion type, unspecified whether angina present, unspecified whether kival[place] or transplanted heart CBC WITH AUTO DIFFERENTIAL [...] (HC) SCAN-ULTRASOUND REPORT 08/30/2023 12:00 AM CDT from Last 3 Months Results * ECHO TTE COMPLETE WO CONTRAST (10/06/2023 1:34 PM CDT) AORTIC VALVE MEAN PG 10 mmHg EJECTION FRACTION 60 % PEAK TR VELOCITY 2.8 m/s LVEDD 4.2 cm EJECTION FRACTION 65 - 70% Anatomical Region Laterality Modality Ultrasound 10/06/2023 12:5 9 PM CDT Narrative 10/06/2023 2:17 PM CDT ECHOCARDIOGRAM SHYAM SANDS ? Accession#: ?? [id number] : ?1940 83 years Study Date: ?? 10/06/2023 12:59:18 PM Gender: M ?BP: ? 131/72 mmHg Height: 175.26 cm ?BSA: ?1.98 m? ? ? Weight: 81.65 kg ? Tech: ? MBF ? Referring MD: SOULEYMANE MILLER Site: ? [facility] Reading Location: Mobile OP Patient [...] . This study was interpreted by an [facility] accredited facility. ??Final ?? Procedure Note Manav Feliciano MD - 10/06/2023 ECHOCARDIOGRAM SHYAM SANDS : 1940 83 years Study Date: 10/06/2023 12:59:18 PM Gender: M BP: 131/72 mmHg Height: 175.26 cm BSA: 1.98 m? ? ? Weight: 81.65 kg Tech: MB Referring MD: SOULEYMANE MILLER Site: [facility] Reading Location: Mobile OP Patient [...] . This study was interpreted by an [facility] accredited facility. Final Souleymane Miller MD ECHO ORD * EKG 12 LEAD (10/04/2023 2:15 PM CDT) Souleymane Miller MD EKG ORD * MD READING EKG - NO CHARGE, COMP ONLY (10/04/2023 2:14 PM CDT) Souleymane Miller MD PB - PROVIDER READ INGS * (ABNORMAL) CBC WITH AUTO DIFFERENTIAL (09/22/2023 10:39 AM CDT) Only the most recent of2 resultswithin the time period is included. WHITE BLOOD COUNT 11.0 4.5 - 11.0 thou/cu mm 09/22/2023 10:46 AM CDT [facility] RED BLOOD COUNT 2.81(L) 4.30 - 5.90 mil/cu mm 09/22/2023 10:46 AM CDT [facility] HEMOGLOBIN 8.0(L) 13.5 - 17.5 g/dL 09/22/2023 10:46 AM CDT [facility] HEMATOCRIT 25.2(L) 37.0 - 53.0 % 09/22/2023 10:46 AM CDT [facility] MCV 90 80 - 100 fL 09/22/2023 10:46 AM CDT [facility] MCH 28.5 26.0 - 34.0 pg 09/22/2023 10:46 AM CDT [facility] MCHC 31.7(L) 32.0 - 36.0 g/dL 09/22/2023 10:46 AM CDT [facility] RDW 17.5(H) 11.5 - 15.5 % 09/22/2023 10:46 AM CDT [facility] PLATELET COUNT 466(H) 140 - 440 thou/cu mm 09/22/2023 10:46 AM CDT [facility] MPV 8.9 6.5 - 11.0 fL 09/22/2023 10:46 AM CDT [facility] % NEUT 86.3 % 09/22/2023 10:46 AM CDT [facility] % LYMPH 6.6 % 09/22/2023 10:46 AM CDT [facility] % MONO 5.8 % 09/22/2023 10:46 AM CDT [facility] % EOS 1.2 % 09/22/2023 10:46 AM CDT [facility] % BASO 0.1 % 09/22/2023 10:46 AM CDT [facility] ABSOLUTE NEUTROPHILS 9.5(H) 1.7 - 7.0 thou/cu mm 09/22/2023 10:46 AM CDT [facility] ABSOLUTE LYMPHOCYTES 0.7(L) 0.9 - 2.9 thou/cu mm 09/22/2023 10:46 AM CDT [facility] ABSOLUTE MONOCYTES 0.6 <0.9 thou/cu mm 09/22/2023 10:46 AM CDT [facility] ABSOLUTE EOSINOPHILS 0.1 <0.5 thou/cu mm 09/22/2023 10:46 AM CDT [facility] ABSOLUTE BASOPHILS 0.0 <0.3 thou/cu mm 09/22/2023 10:46 AM CDT [facility] Blood BLOOD SPECIMEN / Unknown Venipuncture / Unknown 09/22/2023 10:39 AM CDT 09/22/2023 10:43 AM CDT Letty Mera MD HEMATOLOGY [facility] [address] [place] [address], * (ABNORMAL) URINE CULTURE (09/21/2023 4:40 PM CDT) Only the most recent of2 resultswithin the time period is included. 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
== END 2023-11-11 12:46 | disposition home or self-care (01) ==
LOC: WOUND 11-15 11:50
PROVIDERS: PCP Family Medicine; Visit Provider Nurse Practitioner Family
DX: N30.41 Irradiation cystitis with hematuria (principal); L89.153 Pressure ulcer of sacral region, stage 3; K62.7 Radiation proctitis; D64.9 Anemia, unspecified; Y84.2 Radiological procedure and radiotherapy as the cause of abnormal reaction of the patient, or of later complication, without mention of misadventure at the time of the procedure; Z79.01 Long term (current) use of anticoagulants
CPT/HCPCS: 11042; G0277

== ENCOUNTER 2023-11-18 12:33 | Outpatient (CLI) | payer MEDICARE, OTHER, SELFPAY ==
--- OUTSIDE RECORDS SUMMARY | 2023-11-18 12:35 | XMS_ITS | Clinical Summary ---
Author Organization [place] Address [address] [place] [address] Care Team Providers Care Ribbon Tier Name Role Phone Cesar Mccollum Primary Care Provider [phone] Allergies No known active allergies Medications Medication [...] this topic Medical Devices Implanted Type Area Family Day Care Provider Device Identifier Shelf Expiration Date Model / Serial / Lot Stent Ureteral Polaris Ultra [id number] - [id number] Implanted:Qty : 1 on 02/08/2022 by Nicola Ware MD at [facility] Stent Right: Ureter [employer] [id number] 10/08/2024 [id number] Explanted Type Area Family Day Care Provider Device Identifier Shelf Expiration Date Model / Serial / Lot Stent Came Out Of The Right Ureter Explanted:Qty: 1 on 02/08/2022 by Nicola Ware MD at [facility] Right: Urethra Advance Directives For more information, please contact: [phone] Documents on File Type Date Recorded Patient Manager Wound Care Expl anation Advance Directives and Living Will 02/17/2022 Health Care Directiv e 05/15/2021 Healthcare Agents on File Name Relationship Healthcare Agent Relationship Communication Mindy Waterman Daughter Co-First Alterna te Health Care Agent Meera Vega Spouse Health Care Agent [phone] (Home) Favio Vega Son Co-First Evangelina brock Health Care Agent Tereso Vega Son Co-First Fidencio dalton Health Care Agent Care Teams Ribbon Tier Relationship Specialty Start Date End Date Cesar Mccollum [address] [place] [address] PCP - General Family Medicine 11/22/22
--- OUTSIDE RECORDS SUMMARY | 2023-11-18 12:35 | XMS_ITS | Referral Summary ---
Author Organization [place] Address [address] [place] [address] Care Team Providers Care Final Expense Agent Name Role Phone Cesar Mccollum Primary Care Provider [phone] Allergies No known active allergies Medications Medication [...] on file Medical Devices Implanted Type Area Soakers Supervisor Device Identifier Shelf Expiration Date Model / Serial / Lot Stent Ureteral Polaris Ultra [id number] - [id number] Implanted:Qty : 1 on 02/08/2022 by Nicola Ware MD at [facility] Stent Right: Ureter [employer] [id number] 10/08/2024 [id number] Explanted Type Area Soakers Supervisor Device Identifier Shelf Expiration Date Model / Serial / Lot Stent Came Out Of The Right Ureter Explanted:Qty: 1 on 02/08/2022 by Nicola Ware MD at [facility] Right: Urethra Advance Directives For more information, please contact: [phone] Documents on File Type Date Recorded 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
--- OUTSIDE RECORDS SUMMARY | 2023-11-18 12:36 | XMS_ITS ---
Author Organization [facility] Address [address] [place] [address] Care Team Providers Care Power Driven Brush Maker Name Role Phone Unavailable Unavailable Unavailable Surgery Details Not on file Complications Check Surgery Details section. Procedure Estimated Blood Loss Check Surgery Details section. Procedure Findings Check Surgery Details section. Procedure Specimens Taken Check Surgery Details section.
--- OUTSIDE RECORDS SUMMARY | 2023-11-18 12:36 | XMS_ITS | Clinical Summary ---
Author Organization [facility] Address [address] [place] [address] Care Team Providers Care Quality Control Associate Name Role Phone Elsewhere, Pcp Primary Care Provider Unavailabl e Source Comments Patient records contain information from all sites at [facility]. For routine questions regarding patient records, call [phone] during business hours, M-F 8:00 AM - 5:00 PM Central Time. Record requests for emergency care only can be directed to [phone] at any time.[facility] Allergies No known active allergies Medications Medication Sig Dispensed Refills Start Date End Date Status amLODIPine (NORVASC) 10 mg tablet Take 10 mg by mouth daily. Takes in the afternoon, 1 to 2 pm 01/11/2020 Active metoprolol succinate (TOPROL-XL) 50 mg 24 hr tablet Take 50 mg by mouth at bedtime. 11/02/2019 Active nitroglycerin (NITROSTAT) 0.[address] 0.4 mg under the tongue every 5 (five) minutes as needed for chest pain. If chest pain continues after 5 minutes, take the second dose and call [phone] 11/02/2019 Active tamsulosin (FLOMAX) 0.4 mg 24 [...] to catheter removal 20 tablet 08/26/2023 Active clopidogreL (Plavix) 75 mg tablet Take 1 tablet (75 mg total) by mouth every morning. DO NOT TAKE UNTIL FOLLOW-UP 11/17/2023 Active clopidogreL (PLAVIX) 75 mg tablet Take 75 mg by mouth every morning. 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 11/15/2023 Atherosclerotic Heart Diseas e Of [place] Coronary Artery Without Angina Pectoris 11/15/2023 Overview (11/15/2023): stent placements 2017 Complication Procedure Initial 11/15/2023 Deficiency Iron 11/15/2023 Hyperlipidemia 11/15/2023 Hypertension Essential Primary 11/15/2023 Educational Advisor Current Use Of Oth er Agents Affecting Estrogen Receptors And Estrogen Levels 11/15/2023 Presence Of Other Vascular Implants And Grafts 0 11/15/2023 Other Specified Disorders Of Bladder 11/15/2023 Other Retention Of Urine 11/15/2023 PreDiabetes 11/15/2023 Presence Of Urogenital Implants 11/15/2023 Unspecified Complication Of Genitourinary Prosthetic Device Implant And Graft Initial 11/15/2023 Inferior Vena Cava Filter 11/15/2023 Longterm (Current) Anticoagulant Treatment 09/2023 Presence Of Other Specified Devices 10/20/2023 Other Artificial Openings Of Urinary Tract Statu s 09/29/2023 Hematuria 08/13/2023 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 Overview (11/15/2023): Colonoscopy 09/2020 radiation proctitis, diverticuli, internal hemorrhoids, no follow up needed Lymphedema 03/21/2020 Primary Malignant Neoplasm Of Prostate Cancer Staging:Clinical stage from 03/03/2020:Stage IVB(cT4, cN1, pM1b, PSA: 161.9) - Signed by Tereso Frazier M.D. on 03/21/2020 Thrombosis Deep Vein Acute Lower Leg Left 2019 Overview (11/15/2023): right iliac adjacent to bladder mass Abnormal Stress Test 09/15/2016 Overview (11/15/2023): -Stress echocardiogram 09/13/2016 Mid and apical anterior wall, mid and apical anterior septum, and mid and apical inferior septum hypokinesis EF 65-70% Loss Hearing Sensorineural Bilateral 07/17/2010 Resolved Problems Problem Noted Date Diagnosed Date Resolved Date Hematuria Gross 08/31/2023 11/17/2023 Encounters Date Type Department Care Team Description 11/15/2023 10:40 AM CDT Ancillary Procedure Department of Wound Ostomy Arrived 11/14/2023 11:38 PM CDT - 11/17/2023 3:55 PM CDT Hospital Encounter [facility], Fifth Floor [address] [place] [address] Eliceo Guerrier M.D., Ph.D. Sylvie Álvarez M.B.B.S., M.D. Pokhai, Gabriel, M.D. Burkland, Carl B, M.D. Hematuria Gross (Primary Dx) Discharge Disposition: Home-Health Care [facility] 11/14/2023 10:44 AM CDT - 11/14/2023 10:23 PM CDT Emergency [facility] [address] [place] [phone] Sergio Raza M.D. Hematuria (Primary Dx); Malfunction Mechanical Urethral Catheter Initial (HCC) Discharge Disposition: Acute Care Hospital 11/14/2023 Documentation Department of Urology in [address] [phone] Sowmya Aviles APRN, C.N.P., M.S.N. 11/14/2023 Intake [facility] 11/10/2023 Clinical Communication Department of Urology in [address] [phone] Burke Strauss M.D. Oncology records request 11/09/2023 11:00 AM CDT Office Visit Department of Urology in [address] [address] Burke Strauss M.D. Primary Malignant Neoplasm Of Prostate (HCC) (Primary Dx); Retention Urinary Chronic; Hematuria Gross Discharge Disposition: Home or Self Care 11/09/2023 Clinical Communication Department of Urology in [address] [phone] Burke Strauss M.D. 10/27/2023 Clinical Communication Department of Urology in [address] [address] Burke Strauss M.D. 10/14/2023 1:00 PM CDT Procedure visit Department of Urology in [place], [place] [address] [place] [phone] Paula Hernandez M.D. Reichmann, Lynne G, R.NJonah Hematuria 10/14/2023 Documentation Department of Urology in [place], [place] [address] [place] [phone] Paula Hernandez M.D. Catheter Care Plan 09/27/2023 Clinical Communication Department of Urology in [place], [place] [address] [place] [phone] Paula Hernandez M.D. 09/21/2023 Clinical Communication Department of Urology in [place], [place] [address] [place] [phone] Paula Hernandez M.D. 09/16/2023 Clinical Communication Department of Urology in [place], [place] [address] [place] [phone] Provider, Unknown follow up questions 09/16/2023 Orders Only Department of Urology in [place] [id number] [place] [phone] Paula Hernandez M.D. Hematuria Gross (Primary Dx) 09/15/2023 Clinical Communication [facility] [address] [place] [phone] Yasmine Loco 09/09/2023 12:10 PM CDT Ancillary Procedure Department of Nursing 09/09/2023 7:24 AM CDT - 09/15/2023 5:28 PM CDT Hospital Encounter [facility], [facility], Sixth Floor [address] [place] [phone] Gerri Merrill M.D., Ph.D. Sumit Holbrook M.D. Hematuria (Primary Dx) Discharge Disposition: Home or Self Care 09/09/2023 Documentation Department of Urology in [place], [place] [address] [place] [phone] Ko Victoria M.D. 09/06/2023 Orders Only Section of Hyperbaric Medicine in [address] [phone] Kira Ferraro APRN, C.N.P., M.S.N. 09/06/2023 Clinical Communication [facility] [address] [phone] Yasmine Loco 09/01/2023 10:05 AM CDT Ancillary Procedure Department of Nursing 08/31/2023 12:36 PM CDT - 08/31/2023 2:31 PM CDT [facility] [place] [place] [address] [place] [phone] Mayur Alvarez M.D. CYSTOSCOPY EVACUATION CLOTS 08/31/2023 12:34 PM CDT [place] [address] [place] [phone] Joe Stoll M.D. Gran, Terry L, APRN, REGIONAL PROPERTY MANAGER 08/31/2023 12:25 PM CDT Ancillary Procedure Department of General Surgery 08/30/2023 7:35 PM CDT - 09/05/2023 4:09 PM CDT Hospital Encounter [facility], First Floor [address] [place] [phone] Kirstin Hughes M.D. Thompson, R. Houston, M.D. Hematuria (Primary Dx); Tachycardia; Hematuria Gross Discharge Disposition: Home-Health Care Svc 08/30/2023 Documentation Department of Urology in [place], [place] [address] [place] [address] Corin Ring M.D. 08/30/2023 Intake [facility] 08/26/2023 Orders Only Department of Urology in [place], [place] [address] [place] [phone] Paula Hernandez M.D. 08/23/2023 12:45 AM CDT Ancillary Procedure Department of Nursing 08/13/2023 3:42 PM CDT - 08/26/2023 4:11 PM CDT Hospital Encounter [facility], Sixth Floor [address] [place] [phone] Darnell Garcia M.D. Chow, George K, M.D. Decline Functional Status [R53.81] (Primary Dx); Hematuria [R31.9] Discharge Disposition: Home or Self Care from Last 3 Months Social History Tobacco Use Types Packs/Day Years Used Date Smoking Tobacco: Never Smokeless Tobacco: Never Tobacco Cessation:Counseling Given: Not Answered [facility] Utilities Answer Date Recorded In the past 12 months has e [employer], gas, oil, or water company threatened to [...] [facility] 11/15/2023 Sex and Gender Information Value Date Recorded Sex Assigned at Not on file Gender Identity Not on file Sexual Orientation Not on file Last Filed Vital Signs Vital Sign Reading Time Taken Comments Blood Pressure 115/66 11/17/2023 12:26 PM CDT Pulse 63 11/17/2023 12:26 PM CDT Temperature 36.3 ??C (97.3 ??F) 11/17/2023 1 2:26 PM CDT Respiratory Rate 16 11/17/2023 12:2 6 PM CDT Oxygen Saturation 98% 11/17/2023 12: 26 PM CDT Inhaled Oxygen Concentration - - Weight 84.8 kg (186 lb 15.2 oz) 11/17/2023 7:48 AM CDT Height 177.8 cm (5' 10) 11/14/2023 11: 59 PM CDT Body Mass Index 26.82 11/14/2023 11:59 PM CDT Plan of Treatment Upcoming Encounters Date Type Department Care Team (Latest Contact Info) Description 12/07/2023 10:15 AM CDT Procedure visit Department of Urology in [address] [phone] Burke Strauss M.D. [address] [place] [phone] Discharge Disposition: Home or Self Care 12/07/2023 10:30 AM CDT Office Visit Department of Urology in [address] [phone] Burke Strauss M.D. [address] [place] [phone] Discharge Disposition: Home or Self Care Health Maintenance Due Date Last Done Comments Office Visit for Blood Press ure Check / Re-check 1940 Zoster Vaccines (1 of 2) 1989 Depression Screening (Annual PHQ-2) 04/11/2023 Influenza Vaccine (#1) 2024 03/08/2023, 2021 Fasting Glucose for Diabetes Screening 11/16/2024 11/17/2023, 11/17/2023, 11/16/2023, Additional history exists DTaP,Tdap,and Td Vaccines (2 - Td or Tdap) 09/07/2026 09/07/2016 COVID-19 Vaccine Completed 07/21/2023, , 09/13/2022, Additional history exists Pneumococcal vaccine (65+ years) Completed 07/21/19 Fall Risk Screen (Annual) Completed 11/14/2023 Medical Devices Implanted Type Area Business Process Coordinator Device Identifier Shelf Expiration Date Model / Serial / Lot Clp Hrzn Ti 6 Clp Lg Orng - [id number] Implanted:Qt y: 1 on 08/15/2023 by Boubacar Brock M.D. at [facility] Hardware e.g. pins/screws /rods [employer]dom[employer] [id number] 02/29/2028 [id number] / / [id number] Clp Hrzn Ti 6 Clp Lg Orng - [id number] Implanted:Qt y: 1 on 08/15/2023 by Boubcaar Brock M.D. at [facility] Hardware e.g. pins/screws /rods [employer]dom[employer] [id number] 02/29/2028 [id number] / / [id number] Clp Hrzn Ti 6 Clp Md Monty - [id number] Implanted:Qt y: 1 on 08/15/2023 by Boubacar Brock M.D. at [facility] Hardware e.g. pins/screws /rods [employer]dom[employer] [id number] 03/13/2028 [id number] / / [id number] Clp Hrzn Ti 6 Clp Md Monty - [id number] Implanted:Qt y: 1 on 08/15/2023 by Boubacar Brock M.D. at [facility] Hardware e.g. pins/screws /rods [employer]dom[employer] [id number] 03/21/2028 [id number] / / [id number] Stnt Uret Inl 6fx24 - [id number] Implanted:Qt y: 1 on 08/15/2023 by Jakob De Paz M.D. at [facility] Ureteral Stent N/A: Ureter C.[employer].Bard [id number] 11/18/2027 [id number] / / [id number] Procedures Procedure Name Priority Date/Time Associated Diagnosis Comments CBC WITHOUT DIFFERENTIAL, B Routine 11/17/2023 7:24 AM CDT BASIC METABOLIC PANEL, S/P Routine 11/17/2023 7:24 AM CDT GLUCOSE POCT, B Routine 11/17/2023 6:45 AM CDT HEMOGLOBIN, B Timed 11/16/2023 4:43 PM CDT COMPREHENSIVE METABOLIC PANEL, S/P Routine 11/16/2023 6:25 AM CDT CBC WITH DIFFERENTIAL, B Routine 11/16/2023 6:25 AM CDT TRANSFUSE RED BLOOD CELLS Routine 11/15/2023 4:17 PM CDT TESTING LOCATION Routine 11/15/2023 11:09 AM CDT WOUND OSTOMY IMAGE EXAM Routine 11/15/2023 10:40 AM CDT COMPREHENSIVE METABOLIC PANEL, S/P Routine 11/15/2023 7:31 AM CDT CBC WITH DIFFERENTIAL, B Routine 11/15/2023 7:31 AM CDT ECG Routine 11/15/2023 6:47 AM CDT HC URINALYSIS AUTO WO MICRO Routine 11/15/2023 6:25 AM CDT URINALYSIS WITH MICROSCOPIC IF INDICATED, U Routine 11/15/2023 6:25 AM CDT BACTERIAL CULTURE, AEROBIC + SUSC, URINE Routine 11/15/2023 6:[address] ABDOMEN PELVIS WITHOUT IV CONTRAST RAD - Semiurgent (Fast; most ED patients; some inpatients) 11/14/2023 2:07 PM CDT PREPARE RED BLOOD CELLS Routine 11/14/2023 11:09 AM CDT TYPE AND SCREEN Routine 11/14/2023 11:09 AM CDT BLOOD BANK HOLD SAMPLE Routine 11/14/2023 [...] (APTT), P Timed 08/18/2023 6:42 AM CDT from Last 3 Months Results * (ABNORMAL) CBC without Differential (11/17/2023 7:24 AM CDT) Only the most recent of19 resultswithin the time period is included. Hemoglobin 9.5(L) 13.2 - 16.6 g/dL 11/17/2023 7:40 AM CDT [facility]TO Hematocrit 30.1(L) 38.3 - 48.6 % 11/17/2023 7:40 AM CDT [facility] Erythrocytes 3.28(L) 4.35 - 5.65 x10(12)/L 11/17/2023 7:40 AM CDT [facility] MCV 91.8 78.2 - 97.9 fL 11/17/2023 7:40 AM CDT MK[facility] RBC Distrib Width 16.8(H) 11.8 - 14.5 % 11/17/2023 7:40 AM CDT [facility] Platelet Count 358(H) 135 - 317 x10(9)/L 11/17/2023 7:40 AM CDT [facility] Leukocytes 7.4 3.4 - 9.6 x10(9)/L 11/17/2023 7:40 AM CDT MK[facility] Blood (Blood, Venous) 11/17/2023 7:24 AM CDT 11/17/2023 7:33 AM CDT Candelaria Rivas D.O. LAB BLOOD ADD-ON [facility] [address] [place] [address], [facility] [place] [facility] in [address] [address] * (ABNORMAL) Basic Metabolic Panel (11/17/2023 7:24 AM CDT) Only the most recent of11 resultswithin the time period is included. Potassium, P 4.3 3.6 - 5.2 mmol/L 11/17/2023 8:02 AM CDT MKTO Sodium, P 138 135 - 145 mmol/L 11/17/2023 8:02 AM CDT MKTO Chloride, P 106 98 - 107 mmol/L 11/17/2023 8:02 AM CDT MKTO Bicarbonate, P 21(L) 22 - 29 mmol/L 11/17/2023 8:02 AM CDT MK[facility] Anion Gap, P 11 7 - 15 11/17/2023 8:02 AM CDT [facility] BUN (Blood Urea Nitrogen), P 18 8 - 24 mg/dL 11/17/2023 8:02 AM CDT [facility] Creatinine 1.04 0.74 - 1.35 mg/dL 11/17/2023 8:02 AM CDT MKTO Estimated GFR (eGFR) 71 >=60 mL/min/BSA 11/17/2023 8:02 AM CDT MKTO Comment: Estimated GFR calculated using the 2020 CKD_EPI creatinine equation. Calcium, Total, P 8.4(L) 8.8 - 10.2 mg/dL 11/17/2023 8:02 AM CDT MKTO Glucose, P 101 70 - 140 mg/dL 11/17/2023 8:02 AM CDT MKTO Blood (Blood, Venous) 11/17/2023 7:24 AM CDT 11/17/2023 7:33 AM CDT Candelaria Rivas D.O. LAB BLOOD ADD-ON [facility] [place] [address], [facility] [place] [facility] in [address] [address] * Glucose, POCT (11/17/2023 6:45 AM CDT) Only the most recent of2 resultswithin the time period is included. Glucose, POCT, B 107 70 - 140 mg/dL 11/17/2023 6:45 AM CDT MKTO Blood 11/17/2023 6:45 AM CDT 11/17/2023 7:03 AM CDT Generic Rals LAB POCT ORDERABLES- MANUAL Performing Organization Address City/[facility]/ZIP Co de Phone Number [facility] [address] [place] [address], [place] [address] * (ABNORMAL) Hemoglobin (11/16/2023 4:43 PM CDT) Only the most recent of2 resultswithin the time period is included. Pathologist [facility] Hemoglobin 9.2(L) 13.2 - 16.6 g/dL 11/16/2023 5:13 PM CDT MKTO Blood (Blood, Venous) 11/16/2023 4:43 PM CDT 11/16/2023 5:10 PM CDT Madelyn Cesar D.O. LAB BLOOD ADD-ON Performing Organization Address City/[facility]/ZIP Co de Phone Number [facility] [address] [place] [address], [address] [address] * (ABNORMAL) CBC with Differential, Blood (11/16/2023 6:25 AM CDT) Only the most recent of5 resultswithin the time period is included. Hemoglobin 9.4(L) 13.2 - 16.6 g/dL 11/16/2023 7:09 AM CDT MKTO Hematocrit 30.2(L) 38.3 - 48.6 % 11/16/2023 7:09 AM CDT MKTO Erythrocytes 3.28(L) 4.35 - 5.65 x10(12)/L 11/16/2023 7:09 AM CDT MK[facility] MCV 92.1 78.2 - 97.9 fL 11/16/2023 7:09 AM CDT MKTO RBC Distrib Width 17.5(H) 11.8 - 14.5 % 11/16/2023 7:09 AM CDT MK[facility] Platelet Count 362(H) 135 - 317 x10(9)/L 11/16/2023 7:09 AM CDT [facility]TO Leukocytes 6.7 3.4 - 9.6 x10(9)/L 11/16/2023 7:09 AM CDT [facility] Neutrophils 5.22 1.56 - 6.45 x10(9)/L 11/16/2023 7:09 AM CDT MKTO Lymphocytes 0.54(L) 0.95 - 3.07 x10(9)/L 11/16/2023 7:09 AM CDT [facility] Monocytes 0.58 0.26 - 0.81 x10(9)/L 11/16/2023 7:09 AM CDT MKTO Eosinophils 0.36 0.03 - 0.48 x10(9)/L 11/16/2023 7:09 AM CDT MKTO Basophils <0.03 0.01 - 0.08 x10(9)/L 11/16/2023 7:09 AM CDT MKTO Blood (Blood, Venous) 11/16/2023 6:25 AM CDT 11/16/2023 6:56 AM CDT Rashawn Vences M.D. LAB BLOOD ADD-ON [facility] [place] [address], [facility] MKTO [facility] in [place] [address] [place] [address] * (ABNORMAL) Comprehensive Metabolic Panel (11/16/2023 6:25 AM CDT) Only the most recent of3 resultswithin the time period is included. Potassium, P 4.5 3.6 - 5.2 mmol/L 11/16/2023 7:25 AM CDT MKTO Sodium, P 138 135 - 145 mmol/L 11/16/2023 7:25 AM CDT MKTO Chloride, P 108(H) 98 - 107 mmol/L 11/16/2023 7:25 AM CDT MKTO Bicarbonate, P 21(L) 22 - 29 mmol/L 11/16/2023 7:25 AM CDT MKTO Anion Gap, P 9 7 - 15 11/16/2023 7:25 AM CDT MKTO BUN (Blood Urea Nitrogen), P 20 8 - 24 mg/dL 11/16/2023 7:25 AM CDT MKTO Creatinine 1.13 0.74 - 1.35 mg/dL 11/16/2023 7:25 AM CDT MKTO Estimated GFR (eGFR) 64 >=60 mL/min/BS A 11/16/2023 7:25 AM CDT MKTO Comment: Estimated GFR calculated using the 2020 CKD_EPI creatinine equation. Calcium, Total, P 8.4(L) 8.8 - 10.2 mg/dL 11/16/2023 7:25 AM CDT MKTO Glucose, P 109 70 - 140 mg/dL 11/16/2023 7:25 AM CDT MKTO Protein, Total, P 6.2(L) 6.3 - 7.9 g/dL 11/16/2023 7:25 AM CDT MKTO Albumin, P 2.8(L) 3.5 - 5.0 g/dL 11/16/2023 7:25 AM CDT MKTO Aspartate Aminotransferase (AST), P 15 8 - 48 U/L 11/16/2023 7:25 AM CDT MKTO Alkaline Phosphatase, P 55 40 - 129 U/L 11/16/2023 7:25 AM CDT MKTO Alanine Aminotransferase (ALT), P 6(L) 7 - 55 U/L 11/16/2023 7:25 AM CDT MKTO Bilirubin, Total, P 0.3 0.0 - 1.2 mg/dL 11/16/2023 7:25 AM CDT MKTO Blood (Blood, Venous) 11/16/2023 6:25 AM CDT 11/16/2023 6:56 AM CDT Rashawn Vences M.D. LAB BLOOD ADD-ON Performing Organization Address [facility] Co de Phone Number [facility] [address] [place] [address] [place] [address] * Transfuse Red Blood Cells : (11/15/2023 6:35 PM CDT) Only the most recent of8 resultswithin the time period is included. Madelyn Cesar D.O. BLOOD TRANSFUSION OR DERABLES * Testing Location (11/15/2023 11:09 AM CDT) Testing Location [facility] DEFAULT 11/15/2023 11:47 AM CDT [facility] Blood 11/15/2023 11:0 9 AM CDT 11/15/2023 11:47 AM CDT Sergio Raza M.D. LAB BLOOD BANK TEST ORDERABLES Performing Organization Address [facility] Co de Phone Number [facility] [address] [place] [address], [facility] [place] [address] * Coccyx-Wound Ostomy Image Exam (11/15/2023 10:40 [...] RAD IMAGI NG PROCEDURES Performing Organization Address City/[facility] Co de Phone Number [facility] NA * ECG 12 Lead (11/15/2023 6:47 AM CDT) Only the most recent of2 resultswithin the time period is included. Ventricular Rate ECG/Min 65 BPM MUSE NJ Interval 144 ms MUSE QRSD Interval 76 ms MUSE QT Interval 430 ms MUSE QTC Interval 447 ms MUSE P [place] -7 degrees MUSE R [place] 9 degrees MUSE T Wave [place] 19 degrees MUSE 11/15/2023 6:47 AM CDT 11/15/2023 6:53 AM CDT Impressions MUSE - 11/15/2023 6:53 AM CDT Normal sinus rhythm Normal ECG When compared with ECG of 30-Aug-2023 19:44, Premature atrial complexes are no longer present Vent. rate has decreased by ??80 bpm Reviewed by BETTY Powers Narrative Procedure Note Shankar Valdez M.D., Ph.D. - 11/15/2023 IMPRESSION: Normal sinus rhythm Normal ECG When compared with ECG of 30-Aug-2023 19:44, Premature atrial complexes are no longer present Vent. rate has decreased by 80 bpm Reviewed by BETTY Powers Sylvie Wright [...] to determine due to color interference Specific [place] SEE COMMENT 1.001 - 1.035 11/15/2023 8:03 AM CDT MKTO Comment:Unable to determine due to color interference Urobilinogen SEE COMMENT 0.2 - 1.0 mg/dL 11/15/2023 8:03 AM CDT MKTO Comment:Unable to determine due to color interference Urine (Urine, Midstream) 11/15/2023 6:25 AM CDT 11/15/2023 6:34 AM CDT Sylvie Wright M.D. LAB URI NE ORDERABLES [facility] [address] [place] [address], [facility] [place] [address] * (ABNORMAL) Microscopic Automated (11/15/2023 6:25 AM [...] Sylvie Wright M.D. LAB URI NE ORDERABLES Performing Organization Address [facility] Co de Phone Number [facility] [address] [place] [address] * Bacterial Culture, Aerobic + Susceptibility, Urine (11/15/2023 6:24 AM CDT) Only the most recent of3 resultswithin the time period is included. Urine Culture Urogenital microbiota, susceptibilities not performed per laboratory criteria. 11/16/2023 11:36 AM CDT [facility] Urine (Urine, Indwelling Catheter) 11/15/2023 6:24 AM CDT 11/15/2023 9:29 AM CDT Comment:Specimen Source Site : Urine Estrella Marmolejo APRNNJonahP., M.S. LAB MICROBIOLOGY - GENERAL ORDERABLES Performing Organization Address [facility] Co de Phone Number [facility] [address] [place] [address] * CT Abdomen Pelvis without IV Contrast [...] BLOOD BANK TEST ORDERABLES Performing Organization Address [facility] Co de Phone Number [facility] [address] [place] [address], [facility] NPRG [address] [address] * Type and Screen (with Reflex Antibody ID) (11/14/2023 11:09 AM CDT) Only the most recent of6 resultswithin the time period is included. ABO Group O 11/15/2023 12:49 PM CDT NPRG Rh Type POS 11/15/2023 12:49 PM CDT NPRG Antibody Screen NEG 12:49 PM CDT NPRG Type & Screen Expiration 11/17/2023 23:59 11/15/2023 12:49 PM CDT NPRG ELXM Eligible Y 11/15/2023 12:49 PM CDT NPRG Blood 11/14/2023 11:0 9 AM CDT 11/15/2023 11:47 AM CDT Sergio Raza M.D. LAB BLOOD BANK TEST ORDERABLES Performing Organization Address City/[facility] Co de Phone Number [facility] [address] [place] [address], [facility] NPRG [address] [address] * Heparin Anti-Xa Assay (09/14/2023 3:19 AM [...] Sumit Holbrook M.D. LAB BLOOD NON ADD-ON [address] [address], [facility] [address] [place] [address] * IR Nephrostomy Tube Placement Left (09/13/2023 [...] Whitehead M.D. LAB MICROBIOLOGY - GENERAL ORDERABLES [facility] [address] [place] [address], [facility] [address] [place] [address] * Gram Stain (09/13/2023 2:17 PM CDT) Gram Stain No organisms seen. White blood cells, Rare 09/13/2023 9:02 PM CDT DTL Fluid (Kidney, Left) 09/13/2023 2:17 PM CDT 09/13/2023 3:56 PM CDT Comment:Specimen Source Site : Fluid Latisha Whitehead M.D. LAB MICROBIOLOGY - GENERAL ORDERABLES Performing Organization Address City/[facility]/ZIP Co de Phone Number [facility] [address] [place] [address], [facility] [place] [address] [place] [address] * Fungal Culture, Routine (09/13/2023 2:17 PM CDT) Fungal Culture, Routine No growth after 24 days of incubation. 10/08/2023 1:02 AM CDT DTL Fluid (Kidney, Left) 09/13/2023 2:17 PM CDT 09/13/2023 3:56 PM CDT Comment:Specimen Source Site : Fluid Latisha Whitehead M.D. LAB MICROBIOLOGY - GENERAL ORDERABLES Performing Organization Address City/[facility]/ZIP Co de Phone Number [facility] [address] [place] [address], [facility] [place] [address] [place] [address] * Bacterial Culture, Anaerobic + Susceptibility (09/13/2023 [...] [facility]/ZIP Co de Phone Number [facility] [address] [place] [address], [facility] [place] [address] [place] [address] * APTT (Activated Partial Thromboplastin Time) (09/13/2023 5:56 AM CDT) Only the most recent of16 resultswithin the time period is included. Activated Partial Thrombopl Time, P 35 25 - 37 sec 09/13/2023 7:14 AM CDT DTL Blood (Blood, Venous) 09/13/2023 5:56 AM CDT 09/13/2023 6:53 AM CDT Sumit Holbrook M.D. LAB BLOOD ADD-ON [facility] [address] [place] [address], [facility] [place] [address] [place] [address] * NM Kidney DMSA (09/12/2023 12:21 PM [...] reduced radiotracer uptake asdescribed. Js Yang M.D. [facility] [place] PROCEDURES * US Urinary Bladder (09/10/2023 8:41 PM [...] RAD IMAGI NG PROCEDURES Performing Organization Address City/[facility]/ZIP Co de Phone Number IINJ NA * Osmolality, Urine (09/09/2023 11:28 AM CDT) Osmolality, U 380 150 - 1150 mOsm/kg 09/09/2023 12:19 PM CDT DTL Urine 09/09/2023 11:2 8 AM CDT 09/09/2023 11:58 AM CDT Jeffery Church M.D. LAB URINE ORDERA BLES Performing Organization Address City/[facility]/ZIP Co de Phone Number [facility] [address] [place] [address], [facility] [place] [address] [place] [address] * (ABNORMAL) Dipstick, Urine (09/09/2023 11:28 AM [...] Organization Address City/[facility] Co de Phone Number [facility] [address] [place] [address], [facility] [place] [address] [place] [address] * pH, Random, Urine (09/09/2023 11:28 AM CDT) pH, Random, U 6.3 4.5 - 8.0 09/09/2023 12:19 PM CDT DTL Urine 09/09/2023 11:2 8 AM CDT 09/09/2023 11:58 AM CDT Jeffery Church M.D. LAB URINE ORDERA BLES Performing Organization Address [facility] Co de Phone Number [facility] [address] [place] [address], [facility] [place] [address] [place] [address] * (ABNORMAL) Microscopic Manual (09/09/2023 11:28 AM [...] LAB URINE ORDERHelga BRAVO Performing Organization Address [facility]/ZIP Co de Phone Number [facility] [address] [place] [address], [facility] [place] [address] [place] [address] * (ABNORMAL) Gram Stain, Urine (09/09/2023 11:28 AM CDT) Source Urine, Urine, Straight Catheter 09/09/2023 11:58 AM CDT DTL Gram Stain, U Positive(A) Negative 09/09/2023 12:16 PM CDT DTL Comment: Few Gram-negative bacilli ? Yeast Urine 09/09/2023 11:2 8 AM CDT 09/09/2023 11:58 AM CDT Jeffery Church M.D. LAB URINE STEFFANY BRAVO Performing Organization Address [facility] Co de Phone Number [facility] [address] [place] [address], [facility] [place] [address] [place] [address] * (ABNORMAL) Urinalysis, with Microscopic: Urine, Straight [...] 09/09/2023 1:02 PM CDT DTL Predicted Range 2480-76369 mg/24 h 09/09/2023 1:02 PM CDT DTL Comment Micro done on <2.5 mL 09/09/2023 12:27 PM CDT DTL Urine (Urine, Straight Catheter) 09/09/2023 11:28 AM CDT 09/09/2023 11:58 AM CDT Jeffery Church M.D. LAB URINE ORDERA BLES [facility] [address] [place] [address], [facility] DTL [facility] [address] [place] [address] * US Kidneys Bilateral with Bladder (09/09/2023 [...] - 12.5 sec 09/09/2023 8:14 AM CDT [facility] 1.1 0.9 - 1.1 09/09/2023 8:14 AM CDT [facility] Comment: ----ADDITIONAL INFORMATION---- Standard intensity warfarin therapeutic range: 2.0 to 3.0 ?? High intensity warfarin therapeutic range: 2.5 to 3.5 Blood (Blood, Venous) 09/09/2023 8:04 AM CDT 09/09/2023 8:08 AM CDT Jeffery Church M.D. LAB BLOOD ADD-ON [facility] [address] [place], [place] [address] [place] [address] [facility] [address] [place] [address] * Potassium (09/05/2023 4:56 AM CDT) Only the most recent of2 resultswithin the time period is included. Potassium, S 3.6 3.6 - 5.2 mmol/L 09/05/2023 5:49 AM CDT DTL Blood (Blood, Venous) 09/05/2023 4:56 AM CDT 09/05/2023 5:22 AM CDT Roxy Romero M.D. LAB BLOOD ADD-ON [facility] [address] [place] [address], [facility] DTL [facility] [address] [place] [address] * FL Fluoro Less Than 1 Hour (08/31/2023 2:12 PM CDT) Narrative 152 HOS LOS RST - 08/31/2023 2:13 PM CDT This exam does not require a radiologist review or interpretation. Please refer to the patient's medical record on this date for clinical details. Mayur Alvarez M.D. IMG FLUOROSCOPY PROCEDURES Performing Organization Address City/[facility]/ZIP Co de Phone Number 152 HOS LOS [...] Paula Hernandez M.D. IMG CT PROCEDURES * Lactate (08/30/2023 9:50 PM CDT) Lactate, P 1.8 0.5 - 2.2 mmol/L 08/30/2023 10:09 PM CDT [facility] Blood (Blood, Venous) 08/30/2023 9:50 PM CDT 08/30/2023 9:55 PM CDT Shannan Correa D.O., M.H.A. LAB BLOOD NON ADD-ON [facility] [address] [place] [address], [facility] [address] [place] [address] * DX Chest AP or PA and [...] M.D. LAB BLOOD ADD-ON Performing Organization Address [facility] Co de Phone Number [facility] [address] [place] [address] * Magnesium (08/26/2023 3:20 AM CDT) Only the most recent of5 resultswithin the time period is included. Magnesium, S 2.1 1.7 - 2.3 mg/dL 08/26/2023 4:04 AM CDT DTL Blood (Blood, Venous) 08/26/2023 3:20 AM CDT 08/26/2023 3:50 AM CDT Boubacar Brock M.D. LAB BLOOD ADD-ON Performing Organization Address [facility] Co de Phone Number [facility] [address] [place] [address] * (ABNORMAL) Phosphorus Inorganic (08/23/2023 9:58 PM CDT) Only the most recent of2 resultswithin the time period is included. Phosphorus (Inorganic), S 2.1(L) 2.5 - 4.5 mg/dL 08/23/2023 10:45 PM CDT DTL Blood (Blood, Venous) 08/23/2023 9:58 PM CDT 08/23/2023 10:30 PM CDT Paula Hernandez M.D. LAB BLOOD ADD-ON [facility] [address] [place] [address], [facility] [place] [address] [place] [address] * Triglycerides (08/23/2023 3:42 AM CDT) Only [...] [facility]/ZIP Co de Phone Number [facility] [address] [place] [address], [facility] [place] [address] [place] [address] * Creatinine, Body Fluid (08/22/2023 3:30 PM [...] transport rates. All other fluids refer to [email or web address] for further interpretive information. This test has been modified from the molding sander's instructions. Its performance characteristics were determined by [facility] in a manner consistent with CLIA requirements. This test has not been cleared or approved by the U.S. Food and Drug Administration. Fluid Type, Creatinine Fluid, Abdomen 08/22/2023 3:52 PM CDT DTL Fluid (Abdomen) 08/22/2023 3 :30 PM CDT 08/22/2023 6:36 PM CDT Corin Ring M.D. LAB BODY FLUIDS AND STOOLS ORDERABLES [facility] [address] [place] [address], [facility] [place] [address] [place] [address] * IR PICC Line Placement (08/22/2023 8:35 [...] Kimi Vieira M.D., M.S. IMG IR P ROCEDLANNY * [...] the atrophic right kidney. Lizette Harvey M.D. IMG CT PROCEDUR ES from Last 3 Months Advance Directives For more information, please contact: [phone] * Full Code (Latest Code Status on File) Date Activated Date Inactivated Comments 11/15/2023 12:25 AM 11/17/2023 5:55 PM Question Answer Comments Full Code: Discussed * Full Code Date Activated Date Inactivated Comments 08/30/2023 10:40 PM 09/05/2023 6:15 PM Question Answer Comments Full Code: Not Discussed Due to: Patient not available * Full Code Date Activated Date Inactivated Comments 08/13/2023 4:30 PM 08/26/2023 6:58 PM Question Answer Comments Full Code: Discussed Care Teams Quality Control Associate Relationship Specialty Start Date End Date Elsewhere, Pcp PCP - General Internal Medicine 08/13/23
--- OUTSIDE RECORDS SUMMARY | 2023-11-18 12:36 | XMS_ITS ---
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 Overview (11/15/2023): stent placements 2017 Complication Procedure Initial 11/15/2023 Deficiency Iron 11/15/2023 Hyperlipidemia 11/15/2023 Hypertension Essential Primary 11/15/2023 [facility] Current Use Of Oth er Agents Affecting Estrogen Receptors And Estrogen Levels 11/15/2023 Presence Of Other Vascular Implants And Grafts 0 11/15/2023 Other Specified Disorders Of Bladder 11/15/2023 Other Retention Of Urine 11/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 Past Plans No past plan information found. Radiation Treatments * Plan Last Treated On Elapsed Days Fractions Treated Prescribed Fraction Dose Prescribed Total Dose F1 prost, LNs 04/28/2020 32 20 of 20 300 cGy 6,000 cGy Reference Point Last Treated On Elapsed Days Session Dose Total Dose [id number] 04/28/2020 32 300 cGy 6,000 cGy Lifetime Dose Tracking * Chemical Lifetime Dose Automatic Entry Manual Entr y Radiation 20.4 mGy 20.4 mGy 0 mGy Fluoro Time 2.005 minutes 2.005 minutes 0 minutes DAP (uGy-m2) 479.6 uGy-m2 479.6 uGy-m2 0 uGy-m2 Resolved Problems Problem Noted Date Diagnosed Date Resolved Date Hematuria Gross 08/31/2023 11/17/2023
--- OUTSIDE RECORDS SUMMARY | 2023-11-18 12:36 | XMS_ITS | Referral Summary ---
Author Organization 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. For routine questions regarding patient records, call [phone] during business hours, M-F 8:00 AM - 5:00 PM Central Time. Record requests for emergency care only can be directed to [phone] at any time.[facility] Encounters Date Type Department Care Team Description 11/14/2023 11:38 PM CDT - 11/17/2023 3:55 PM CDT Hospital Encounter [facility], Fifth Floor [address] [place] [address] Eliceo Guerrier M.D., Ph.D. Sylvie Álvarez M.B.B.S., M.Craig. Rashawn Vences M.D. Gabe Buckley M.D. Hematuria Gross (Primary Dx) Discharge Disposition: Home-Health Care [facility] 11/15/2023 10:40 AM CDT Ancillary Procedure Department of Wound Ostomy Arrived 11/14/2023 Documentation Department of Urology in [place] [phone] Sowmya Aviles APRN, C.N.P., M.S.N. 11/14/2023 Intake [facility] 11/14/2023 10:44 AM CDT - 11/14/2023 10:23 PM CDT Emergency [facility] [address] [place] [phone] Sergio Raza M.D. Hematuria (Primary Dx); Malfunction Mechanical Urethral Catheter Initial (HCC) Discharge Disposition: Acute [facility] 11/10/2023 Clinical Communication Department of Urology in [address] [phone] Burke Strauss M.D. Oncology records request 11/09/2023 Clinical Communication Department of Urology in [address] [phone] Burke Strauss M.D. 11/09/2023 11:00 AM CDT Office Visit Department of Urology in [address] [phone] Burke Strauss M.D. Primary Malignant Neoplasm Of Prostate (HCC) (Primary Dx); Retention Urinary Chronic; Hematuria Gross Discharge Disposition: Home or Self Care 10/27/2023 Clinical Communication Department of Urology in [address] [phone] Burke Strauss M.D. 10/14/2023 Documentation Department of Urology in [place], [place] [address] [place] [address] Paula Hernandez M.D. Catheter Care Plan 10/14/2023 1:00 PM CDT Procedure visit Department of Urology in [place], [place] [address] [place] [address] Paula Hernandez M.D. Reichmann, Lynne G, R.N. Hematuria 09/27/2023 Clinical Communication Department of Urology in [place], [place] [address] [place] [phone] Paula Hernandez M.D. 09/21/2023 Clinical Communication Department of Urology in [place], [place] [address] [place] [phone] Paula Hernandez M.D. 09/16/2023 Clinical Communication Department of Urology in [place], [place] [address] [place] [phone] Provider, Unknown follow up questions 09/16/2023 Orders Only Department of Urology in [place], [place] [address] [place] [phone] Paula Hernandez M.D. Hematuria Gross (Primary Dx) 09/15/2023 Clinical Communication [facility] [address] [place] [phone] Yasmine Loco 09/09/2023 7:24 AM CDT - 09/15/2023 5:28 PM CDT Hospital Encounter [facility], Sixth Floor [address] [place] [phone] Gerri Merrill M.D., Ph.D. Sumit Holbrook M.D. Hematuria (Primary Dx) Discharge Disposition: Home or Self Care 09/09/2023 12:10 PM CDT Ancillary Procedure Department of Nursing 09/09/2023 Documentation Department of Urology in [place], [place] [address] [place] [phone] Ko Victoria M.D. 09/06/2023 Orders Only Section of Hyperbaric Medicine in [place], [place] [address] [place] [phone] Kira Ferraro APRN, C.N.P., M.S.N. 09/06/2023 Clinical Communication [facility] [address] [place] [phone] Yasmine Loco 08/30/2023 7:35 PM CDT - 09/05/2023 4:09 PM CDT Hospital Encounter [facility], First Floor [address] [place] [phone] Kirstin Hughes M.D. Thompson, R. Houston, M.D. Hematuria (Primary Dx); Tachycardia; Hematuria Gross Discharge Disposition: Home-Health Care [facility] 09/01/2023 10:05 AM CDT Ancillary Procedure Department of Nursing 08/31/2023 12:25 PM CDT Ancillary Procedure Department of General Surgery 08/31/2023 12:34 PM CDT [place] [address] [place] [phone] Joe Stoll M.D. Gran, Terry L, APRN, GAVIN 08/31/2023 12:36 PM CDT - 08/31/2023 2:31 PM CDT Surgery [facility] OR [address] [place] [phone] Mayur Alvarez M.D. CYSTOSCOPY EVACUATION CLOTS 08/30/2023 Documentation Department of Urology in [place], [place] [address] [place] [phone] Corin Ring M.D. 08/30/2023 Intake [facility] 08/26/2023 Orders Only Department of Urology in [place], [place] [address] [place] [phone] Paula Hernandez M.D. 08/13/2023 3:42 PM CDT - 08/26/2023 4:11 PM CDT Hospital Encounter [facility], Sixth Floor [address] [place] [phone] Darnell Garcia M.D. Chow, George K, M.D. Decline Functional Status [R53.81] (Primary Dx); Hematuria [R31.9] Discharge Disposition: Home or Self Care 08/23/2023 12:45 AM CDT Ancillary Procedure Department of Nursing from Last 3 Months Allergies No known [...] 75 mg by mouth every morning. 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/15/2023 Overview (11/15/2023): stent placements 2017 Complication Procedure Initial 11/15/2023 Deficiency Iron 11/15/2023 Hyperlipidemia 11/15/2023 Hypertension Essential Primary 11/15/2023 Long-Term Current Use Of Oth er Agents Affecting Estrogen Receptors And Estrogen Levels 11/15/2023 Presence Of Other Vascular Implants And Grafts 0 11/15/2023 Other Specified Disorders Of Bladder 11/15/2023 Other Retention Of Urine 11/15/2023 PreDiabetes 11/15/2023 Presence Of Urogenital Implants 11/15/2023 Unspecified Complication Of Genitourinary Prosthetic Device Implant And Graft Initial 11/15/2023 Inferior Vena Cava Filter 11/15/2023 Long-Term (Current) Anticoagulant Treatment 09/2023 Presence Of Other [...] Date Resolved Date Hematuria Gross 08/31/2023 11/17/2023 Social History Tobacco Use Types Packs/Day Years Used Date Smoking Tobacco: Never Smokeless Tobacco: Never Tobacco Cessation:Counseling Given: Not Answered [facility] Utilities Answer Date Recorded In [...] CDT Procedure visit Department of Urology in [address] [phone] Burke Strauss M.D. [address] [place] [phone] Discharge Disposition: Home or Self Care 12/07/2023 10:30 AM CDT Office Visit Department of Urology in [address] [phone] Burke Strauss M.D. [address] [place] [phone] Discharge Disposition: Home or Self Care Medical Devices Implanted Type Area Quality Assurance Inspector Device Identifier Shelf Expiration Date Model / Serial / Lot Clp Hrzn Ti 6 Clp Lg Orng - [id number] Implanted:Qt y: 1 on 08/15/2023 by Boubacar Brock M.D. at [facility] Hardware e.g. pins/screws /rods Abdomen Agnitus [id number] 02/29/2028 [id number] / / [id number] Clp Hrzn Ti 6 Clp Lg Orng - [id number] Implanted:Qt y: 1 on 08/15/2023 by Boubacar Brock M.D. at [facility] Hardware e.g. pins/screws /rods Abdomen [employer] [id number] 02/29/2028 [id number] / / [id number] Clp Hrzn Ti 6 Clp Md Monty - [id number] Implanted:Qt y: 1 on 08/15/2023 by Boubacar Brock M.D. at [facility] Hardware e.g. pins/screws /rods Abdomen [employer] [id number] 03/13/2028 [id number] / / [id number] 1 Clp Hrzn Ti 6 Clp Md Monty - [id number] Implanted:Qt y: 1 on 08/15/2023 by Boubacar Brock M.D. at [facility] Hardware e.g. pins/screws /rods Abdomen [employer] [id number] 03/21/2028 [id number] / / [id number] 3 Stnt Uret Inl 6fx24 - [id number] Implanted:Qt y: 1 on 08/15/2023 by Jakob De Paz M.D. at [facility] Ureteral Stent N/A: Ureter C.[employer].Bard [id number] 11/18/2027 [id number] / / [id number] Procedures Procedure Name Priority Date/Time Associated Diagnosis [...] CDT Candelaria Rivas D.O. LAB BLOOD ADD-ON [facility] [address] [place] [address], [facility] [address] * (ABNORMAL) Basic Metabolic Panel (11/17/2023 7:24 [...] CDT Candelaria Rivas D.O. LAB BLOOD ADD-ON [facility] [address] [place] [address] * Glucose, POCT (11/17/2023 6:45 AM CDT) Only the most recent of2 resultswithin the time period is included. Glucose, POCT, B 107 70 - 140 mg/dL 11/17/2023 6:45 AM CDT [facility]TO Blood 11/17/2023 6:45 AM CDT 11/17/2023 7:03 AM CDT Generic Rals LAB POCT ORDERABLES- MANUAL Performing Organization Address City/[facility]/ZIP Co de Phone Number [facility] [address] [place] [address] * (ABNORMAL) Hemoglobin (11/16/2023 4:43 PM CDT) Only the most recent of2 resultswithin the time period is included. Hemoglobin 9.2(L) 13.2 - 16.6 g/dL 11/16/2023 5:13 PM CDT MKTO Blood (Blood, Venous) 11/16/2023 4:43 PM CDT 11/16/2023 5:10 PM CDT Madelyn Cesar D.O. LAB BLOOD ADD-ON [facility] [address] [place] [address], [facility] [place] [address] [place] [address] * (ABNORMAL) CBC with Differential, Blood (11/16/2023 [...] CDT Rashawn Vences M.D. LAB BLOOD ADD-ON [facility] [address] [place] [address], [facility] [address] * (ABNORMAL) Comprehensive Metabolic Panel (11/16/2023 6:25 [...] CDT Rashawn Vences M.D. LAB BLOOD ADD-ON [facility] [address] [place] [address], [facility] [address] * Transfuse Red Blood Cells : (11/15/2023 6:35 PM CDT) Only the most recent of8 resultswithin the time period is included. Madelyn Cesar D.O. BLOOD TRANSFUSION OR DERABLES * Testing Location (11/15/2023 11:09 AM CDT) Testing Location [facility] DEFAULT 11/15/2023 11:47 AM CDT MKTO Blood 11/15/2023 11:0 9 AM CDT 11/15/2023 11:47 AM CDT Sergio Raza M.D. LAB BLOOD BANK TEST ORDERABLES [facility] [address] [place] [address], [place] [facility] [place] [address] [place] [address] * Coccyx-Wound Ostomy Image Exam (11/15/2023 10:40 [...] RAD IMAGI NG PROCEDURES Performing Organization Address City/[facility] Co de Phone Number IIFL NA * ECG 12 Lead (11/15/2023 6:47 AM CDT) Only the most recent of2 resultswithin the time period is included. Ventricular Rate ECG/Min 65 BPM MUSE LA Interval 144 ms MUSE QRSD Interval 76 ms MUSE QT Interval 430 ms MUSE QTC Interval 447 ms MUSE P [place] -7 degrees MUSE R [place] 9 degrees MUSE T Wave [place] 19 degrees MUSE 11/15/2023 6:47 AM CDT [...] to determine due to color interference Specific [place] SEE COMMENT 1.001 - 1.035 11/15/2023 8:03 AM CDT MKTO Comment:Unable to determine due to color interference Urobilinogen SEE COMMENT 0.2 - 1.0 mg/dL 11/15/2023 8:03 AM CDT MKTO Comment:Unable to determine due to color interference Urine (Urine, Midstream) 11/15/2023 6:25 AM CDT 11/15/2023 6:34 AM CDT Sylvie Wright M.D. LAB URI NE ORDERABLES Performing Organization Address [facility] Co de Phone Number [facility] [address] [place] [address] * (ABNORMAL) Microscopic Automated (11/15/2023 6:25 AM [...] LAB URI NE ORDERABLES Performing Organization Address [facility] Co de Phone Number [facility] [address] [place] [address], [place] [address] * Bacterial Culture, Aerobic + Susceptibility, Urine (11/15/2023 6:24 AM CDT) Only the most recent of3 resultswithin the time period is included. Urine Culture Urogenital microbiota, susceptibilities not performed per laboratory criteria. 11/16/2023 11:36 AM CDT [facility] Urine (Urine, Indwelling Catheter) 11/15/2023 6:24 AM CDT 11/15/2023 9:29 AM CDT Comment:Specimen Source Site : Urine Estrella Marmolejo APRNNChely., M.S. LAB MICROBIOLOGY - GENERAL ORDERABLES Performing Organization Address City/State/[facility] Co de Phone Number [facility] [address] [place] [address], [facility] MK[facility] [place] [address] [place] [address] * CT Abdomen Pelvis without IV Contrast [...] Raza M.D. LAB BLOOD BANK TEST ORDERABLES [facility] [address] [place] [address], [facility] NPRG [place] [address] [place] [address] * Type and Screen (with Reflex Antibody [...] Raza M.D. LAB BLOOD BANK TEST ORDERABLES [facility] [address] [place] [address], [place] [address] [address] [place] [address] * Heparin Anti-Xa Assay (09/14/2023 3:19 AM [...] Sumit Holbrook M.D. LAB BLOOD NON ADD-ON [facility] [address] [place] [address], [facility] [address] [place] [address] * IR Nephrostomy Tube Placement Left (09/13/2023 2:20 PM CDT) Anatomical Region Laterality Modality Genito Urinary, Vascular Int erventional RST LOS, Vascular Interventional ARZ LOS, Vascular Interventional FLA LOS Left X-Ray Angiography Impressions 09/13/2023 2:33 PM CDT Left 10 [place] percutaneous nephrostomy tube placement. EP Narrative 09/13/2023 [...] tract was further dilated and a 10 [place] nephrostomy tube was placed with loop formed [...] sedation timewas: 9 minutes. IMPRESSION: Left 10 [place] percutaneous nephrostomy tube placement. EP Latisha Whitehead [...] MICROBIOLOGY - GENERAL ORDERABLES Performing Organization Address City/[facility] Co de Phone Number [facility] [address] [facility] [address] [place] [address] * Gram Stain (09/13/2023 2:17 PM CDT) Gram Stain No organisms seen. White blood cells, Rare 09/13/2023 9:02 PM CDT DTL Fluid (Kidney, Left) 09/13/2023 2:17 PM CDT 09/13/2023 3:56 PM CDT Comment:Specimen Source Site : Fluid Latisha Whitehead M.D. LAB MICROBIOLOGY - GENERAL ORDERABLES Performing Organization Address City/[facility]/ZIP Co de Phone Number [facility] [address] [place] [address] * Fungal Culture, Routine (09/13/2023 2:17 PM CDT) Fungal Culture, Routine No growth after 24 days of incubation. 10/08/2023 1:02 AM CDT DTL Fluid (Kidney, Left) 09/13/2023 2:17 PM CDT 09/13/2023 3:56 PM CDT Comment:Specimen Source Site : Fluid Latisha Whitheead M.D. LAB MICROBIOLOGY - GENERAL ORDERABLES Performing Organization Address City/[facility]/ZIP Co de Phone Number [facility] [address] [place] [address] * Bacterial Culture, Anaerobic + Susceptibility (09/13/2023 2:17 PM CDT) Bacterial Culture, Anaerobic + Susc No growth after 14 days of incubation. 09/27/2023 8:04 AM CDT DT Fluid (Kidney, Left) 09/13/2023 2:17 PM CDT 09/13/2023 3:56 PM CDT Comment:Specimen Source Site : Fluid Latisha Whitehead M.D. LAB MICROBIOLOGY - GENERAL ORDERABLES Performing Organization Address [facility] Co de Phone Number [facility] [address] [place] [address] * APTT (Activated Partial Thromboplastin Time) (09/13/2023 5:56 AM CDT) Only the most recent of16 resultswithin the time period is included. Activated Partial Thrombopl Time, P 35 25 - 37 sec 09/13/2023 7:14 AM CDT DTL Blood (Blood, Venous) 09/13/2023 5:56 AM CDT 09/13/2023 6:53 AM CDT Sumit Holbrook M.D. LAB BLOOD ADD-ON Performing Organization Address City/[facility]/ZIP Co de Phone Number [facility] [address] [place] [address] [address] [place] [address] * NM Kidney DMSA (09/12/2023 12:21 PM [...] Js Yang M.D. IMG NM PROCEDURES * US Urinary Bladder (09/10/2023 [...] Js Yang M.D. IM US PROCEDURES * Coccyx-Nursing Image Exam (09/09/2023 [...] LAB URINE ORDERA BLES Performing Organization Address City/[facility] Co de Phone Number [facility] [address] [place] [address], [facility] [address] [place] [address] * (ABNORMAL) Dipstick, Urine (09/09/2023 11:28 AM [...] LAB URINE ORDERA BLEBryon Performing Organization Address City/[facility]/ZIP Co de Phone Number [facility] [address] [place] [address], [facility] [address] [place] [address] * pH, Random, Urine (09/09/2023 11:28 AM CDT) pH, Random, U 6.3 4.5 - 8.0 09/09/2023 12:19 PM CDT DTL Urine 09/09/2023 11:2 8 AM CDT 09/09/2023 11:58 AM CDT Jeffery Church M.D. LAB URINE ORDERA BLES [facility] [address] [place], [place] [address] [address] [place] [address] * (ABNORMAL) Microscopic Manual (09/09/2023 11:28 AM [...] LAB URINE ORDERA BLES Performing Organization Address City/[facility]/ZIP Co de Phone Number [facility] [address] [place] [address], [facility] [address] [place] [address] * (ABNORMAL) Gram Stain, Urine (09/09/2023 11:28 AM CDT) Source Urine, Urine, Straight Catheter 09/09/2023 11:58 AM CDT DTL Gram Stain, U Positive(A) Negative 09/09/2023 12:16 PM CDT DTL Comment: Few Gram-negative bacilli ? Yeast Urine 09/09/2023 11:2 8 AM CDT 09/09/2023 11:58 AM CDT Jeffery Church M.D. LAB URINE ORDERA BLES Performing Organization Address [facility] Co de Phone Number [facility] [address] [place] [address], [facility] DTL [facility] [address] [place] [address] * (ABNORMAL) Urinalysis, with Microscopic: Urine, Straight [...] 09/09/2023 1:02 PM CDT DTL Predicted Range 2480-72026 mg/24 h 09/09/2023 1:02 PM CDT DTL Comment Micro done on <2.5 mL 09/09/2023 12:27 PM CDT DTL Urine (Urine, Straight Catheter) 09/09/2023 11:28 AM CDT 09/09/2023 11:58 AM CDT Jeffery Church M.D. LAB URINE ORDERA BLES Performing Organization Address City/[facility]/ZIP Co de Phone Number [facility] [address] [place] [address], [facility] [address] [place] [address] * US Kidneys Bilateral with Bladder (09/09/2023 [...] dependent debris/blood clot within the urinarybladder. Jeffery WHITEHEADG US PROCEDURE S * Prothrombin Time (PT) (09/09/2023 8:04 AM CDT) Prothrombin Time, P 12.5 9.4 - 12.5 sec 09/09/2023 8:14 AM CDT [facility] 0.9 - 1.1 09/09/2023 8:14 AM CDT [facility] Comment: ----ADDITIONAL INFORMATION---- Standard intensity warfarin therapeutic range: 2.0 to 3.0 ?? High intensity warfarin therapeutic range: 2.5 to 3.5 Blood (Blood, Venous) 09/09/2023 8:04 AM CDT 09/09/2023 8:08 AM CDT Jeffery Church M.D. LAB BLOOD ADD-ON Performing Organization Address City/[facility]/ZIP Co de Phone Number [facility] [address] [place] [address], [facility] [address] [place] [address] * Potassium (09/05/2023 4:56 AM CDT) Only the most recent of2 resultswithin the time period is included. Pathologist [facility] Potassium, S 3.6 3.6 - 5.2 mmol/L 09/05/2023 5:49 AM CDT DTL Blood (Blood, Venous) 09/05/2023 4:56 AM CDT 09/05/2023 5:22 AM CDT Roxy Romero M.D. LAB BLOOD ADD-ON Performing Organization Address City/[facility]/ZIP Co de Phone Number [facility] [address] [place] [address], [facility] [address] [place] [address] * FL Fluoro Less Than 1 Hour (08/31/2023 2:12 PM CDT) Narrative 152 HOS LOS RST - 08/31/2023 2:13 PM CDT This exam does not require a radiologist review or interpretation. Please refer to the patient's medical record on this date for clinical details. Mayur Alvarez M.D. IMG FLUOROSCOPY PROCEDURES Performing Organization Address City/[facility]/ZIP Co de Phone Number 152 HOS [...] in the bladder lumen. Paula Hernandez M.D. [facility] PROCEDURES * Lactate (08/30/2023 9:50 PM CDT) Lactate, P 1.8 0.5 - 2.2 mmol/L 08/30/2023 10:09 PM CDT [facility] Blood (Blood, Venous) 08/30/2023 9:50 PM CDT 08/30/2023 9:55 PM CDT Shannan Correa D.O., M.H.A. LAB BLOOD NON ADD-ON [facility] [address] [place] [address], [facility] [address] [place] [address] * DX Chest AP or PA and [...] M.D. LAB BLOOD ADD-ON [facility] [address] [place] [address], [facility] DTL [facility] [address] [place] [address] * Magnesium (08/26/2023 3:20 AM CDT) Only the most recent of5 resultswithin the time period is included. Magnesium, S 2.1 1.7 - 2.3 mg/dL 08/26/2023 4:04 AM CDT DTL Blood (Blood, Venous) 08/26/2023 3:20 AM CDT 08/26/2023 3:50 AM CDT Boubacar Brock M.D. LAB BLOOD ADD-ON [facility] [address] [place] [address] * (ABNORMAL) Phosphorus Inorganic (08/23/2023 9:58 PM CDT) Only the most recent of2 resultswithin the time period is included. Phosphorus (Inorganic), S 2.1(L) 2.5 - 4.5 mg/dL 08/23/2023 10:45 PM CDT DT Blood (Blood, Venous) 08/23/2023 9:58 PM CDT 08/23/2023 10:30 PM CDT Paula Hernandez M.D. LAB BLOOD ADD-ON Performing Organization Address City/[facility]/ZIP Co de Phone Number [facility] [address] [place] [address], [place] [address] * Triglycerides (08/23/2023 3:42 AM CDT) Only [...] M.D. LAB BLOOD ADD-ON Performing Organization Address [facility] Co de Phone Number [facility] [address] [place], [place] [address] [place] [address] * Creatinine, Body Fluid (08/22/2023 3:30 PM [...] transport rates. All other fluids refer to www.[email or web address].com for further interpretive information. This test has been modified from the photographer finish's instructions. Its performance characteristics were determined by [facility] in a manner consistent with CLIA requirements. This test has not been cleared or approved by the U.S. Food and Drug Administration. Fluid Type, Creatinine Fluid, Abdomen 08/22/2023 3:52 PM CDT DT Fluid (Abdomen) 08/22/2023 3 :30 PM CDT 08/22/2023 6:36 PM CDT Corin Ring M.D. LAB BODY FLUIDS AND STOOLS ORDERABLES Performing Organization Address [facility]/ZIP Co de Phone Number [facility] [address] [place], [place] [address] [place] [address] * IR PICC Line Placement (08/22/2023 8:35 AM CDT) Anatomical Region Laterality Modality Chest, Pelvis, Abdomen, Vasc ular Interventional RST LOS, Vascular Interventional ARZ LOS, Vascular Interventional FLA LOS N/A X-Ray Angiography Impressions 08/22/2023 9:05 AM CDT Placement of a right IJ vein single-lumen 4 [place] tunneled PowerPICC ready for immediate use. NR [...] advanced into the IVC and a 4 [place] dilator advanced over the wire and attached to a one-way stopcock. A suitable exit site in the right anterior chest was anesthetized and a small incision made. A 4 [place]ican single-lumen PowerPICC was then tunneled from the [...] Wireadvanced into the IVC and a 4 [place]ican dilator advanced over the wire andattached to a one-way stopcock. A suitable exit site in the right anteriorchest was anesthetized and a small incision made. A 4 [place] single-lumen PowerPICC was then tunneled fromthe skin [...] of a right IJ vein single-lumen 4 [place]ican tunneled PowerPICCready for immediate use. NR Kimi Vieira M.D., M.S. 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
--- OUTSIDE RECORDS SUMMARY | 2023-11-18 12:37 | XMS_ITS | Encounter Summary ---
Author Organization [facility] Address [address] [place] [address] Care Team Providers Care Utility Bagger Name Role Phone Elsewhere, Pcp Primary Care Provider Unavailabl e Encounter Details Date Type Department Care Team (Late st Contact Info) Description 11/14/2023 Documentation Department of Urology in [place], [place] [address] [place] [phone] Sowmya Aviles, ARUN, C.N.P., M.S.N. [address] [place] [phone] Social History Tobacco Use Types Packs/Day Years Used Date Smoking Tobacco: Never Smokeless Tobacco: Never [facility] Utilities Answer Date Recorded In the [...] [facility] to live 11/15/2023 Sex and Gender Information Value Date Recorded Sex Assigned at Not on file Gender Identity Not on file Sexual Orientation Not on file documented as of this encounter Progress Notes * Sowmya Aviles, ARUN, C.N.P., M.S.N. - 11/14/2023 3:31 PM CDT Contacted via [facility] regarding this patient. Not personally seen or evaluated as patient is in the [facility] Emergency Department. Kalen Vega is a 83 y.o. male with medical comorbidities of acute DVT on Plavix, coronary artery disease status post stent, degenerative joint disease, hyperlipidemia, lymphedema, prediabetes. 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 Tan in [place], [place]. 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 Patient developed clot obstruction complicated by bladder perforation, necessitating exploratory laparotomy and cystotomy closure on 08/15/2023. He re-presented on 08/30 with recurrent gross hematuria and clots and underwent cystoscopy with clot evacuation on 08/30. Had planned outpatienthyperbaric O2 but unfortunately developed recurrent hematuria and clots and was readmitted to hospital. He presented to [facility] Department today for evaluation of hematuria and no drainage into urinary catheter. He reports leakage around the catheter of urine and blood clots. A 22 Frisian three-way catheter was placed, patient was hand irrigated and placed on CBI. Hemoglobin today 8.2 was 8.0 on 09/22/2023, serum white count 7.3, creatinine 1.12 (baseline) with GFR 65. 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 No left-sided hydro ureteral nephrosis. There is a small amount of hyperdense material within the urinary bladder which could be related to blood products. There is also focal wall thickening along the base of the urinary bladder near the right ureterovesicular junction which is not significantly changed compared with multiple prior exams. Recommendations: Continue current indwelling catheter. Manual bladder irrigation with normal saline, performed as needed, if urine output <30 cc for two consecutive hours and if catheter is not draining, concerns for clot occlusion, dark maroon/ketchup hematuria. Continuous bladder irrigation with normal saline. Continuous bladder irrigation can be weaned to goal urine color/clarity of light peach/ light red or clear with minimal clots. NPO at midnight until urology can evaluate He will also need routine nephrostomy tube exchange three month from insertion (Due 12/14/2023) - These orders were previously placed. Hold Plavix if medically appropriate documented in this encounter Plan of Treatment Upcoming Encounters Date Type Department Care Team (Latest Contact Info) Description 12/07/2023 10:15 AM CDT Procedure visit Department of Urology in [place], [place] [address] [place] [phone] Burke Strauss M.D. [facility] [place] [phone] Discharge Disposition: Home or Self Care 12/07/2023 10:30 AM CDT Office Visit Department of Urology in [place], [place] [address] [place] [phone] Burke Strauss M.D. [address] [place] [phone] Discharge Disposition: Home or Self Care documented as of this encounter Visit Diagnoses Not on filedocumented in this encounter Care Teams Utility Bagger Relationship Specialty Start Date End Date Elsewhere, Pcp PCP - General Internal Medicine 08/13/23 documented as of this encounter
--- OUTSIDE RECORDS SUMMARY | 2023-11-18 12:37 | XMS_ITS | Encounter Summary ---
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 [address] [place] [phone] Referral ID Status Reason Start Date Expiration Date V isits Requested Visits Authorized [id number] Authorized 11/17/2023 05/18/2025 1 1 * Outpatient (Routine) - Authorized Specialty Diagnoses / Procedures Referred By Contac t Referred To Contact [facility] Gabe Bcukley M.D. [address] [place] [phone] [facility] Referral ID Status Reason Start Date Expiration Date V isits Requested Visits Authorized [id number] Authorized 11/17/2023 05/18/2025 1 1 Scheduling Instructions 3-5 Days After Discharge Encounter Details Date Type Department Care Team (Late st Contact Info) Description 11/14/2023 11:38 PM CDT - 11/17/2023 3:55 PM CDT Hospital Encounter [facility], [facility], Fifth Floor [address] [place] [phone] Eliceo Guerrier M.D., Ph.D. [address] [place] [phone] Sylvie Álvarez M.B.B.S., [place] [address] [place] [phone] Rashawn Vences M.D. [address] [place] [phone] Gabe Buckley M.D. [address] [place] [phone] Smith Peter (Primary Dx) Discharge Disposition: Home-Health Care Svc Social History Tobacco Use Types Packs/Day Years Used Date Smoking Tobacco: Never Smokeless Tobacco: Never [facility] Utilities Answer Date Recorded In the past 12 months has [facility] [employer] gas, oil, or water [employer] threatened to shut off services in your [...] a [facility] place to live 11/15/2023 Sex and [...] Mass Index 26.82 11/14/2023 11:59 PM CDT documented in this encounter Discharge Summaries * Candelaria Rivas D.O. - 11/17/2023 3:09 PM CDT DISCHARGE SUMMARY BRIEF OVERVIEW Discharge Hospital: Hospital: [facility] Emergency Department Discharge Provider: Gabe Buckley M.D. Primary Care Providers: Dr. Cesar Mccollum, [facility] No address on file Discharge Provider Team: [facility] ([facility]) [place] Rufus Bob Primary Care Provider Phone Number: None Primary Care Provider Fax Number: None Admission Date: 11/14/2023 Discharge Date: 11/17/23 PRINCIPAL DIAGNOSIS Hematuria Gross SECONDARY DIAGNOSES Principal Problem (Resolved): Hematuria Gross Active Problems: Primary Malignant Neoplasm Of Prostate (HCC) Anemia In Neoplastic Disease Atherosclerotic Heart Disease Of [place] Coronary Artery Without Angina Pectoris Deficiency Iron Hyperlipidemia Hypertension Essential Primary Fci Current Use Of Other Agents Affecting Estrogen Receptors And Estrogen Levels Radiation Therapy Proctitis Inferior Vena Cava Filter 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 [6] ACTIVE ISSUES REQUIRING FOLLOW UP Held Plavix, follow-up in [address] primary care [address] Cesar Mccollum to discuss restarting OUTPATIENT FOLLOW UP Scheduled Appointments 12/07/2023 10:15 AM [facility]ULT[facility] SPECIALTY NURSE 01 NPNC; URO NURSE 01 NPNC Urology 12/07/2023 10:30 AM Burke Strauss M.D. Urology For appointment details refer to your Patient Appointment Guide. 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 He had been started on continuous bladder irrigation and was transferred for further management. Plavix and Xarelto were both held due to bleeding, and his hemoglobin had decreased to 8.2 on admission. His hemoglobin had gone down to 7.7 on 11/15/2023 and received 1 unit packed red blood cells on 11/15/2023. His hematuria resolved and his hemoglobin held stable after transfusion at around 9.4. His CBI was clamped and he was restarted on Xarelto on 11/16/2023. There was no further bleeding afterrestarting Xarelto. Discussed holding Plavix until follow-up. Patient was stable and discharged home. MEDICATIONS CHANGED DURING THIS HOSPITAL STAY Discharge Medications Modified Medications Sig Disp Start clopidogreL 75 mg tablet Commonly known as: Plavix What changed: additional instructions Take 1 tablet (75 mg total) by mouth every morning. DO NOT TAKE UNTIL FOLLOW-UP Medications To Continue Sig Disp Start amLODIPine 10 mg tablet Commonly known as: Norvasc Take 10 mg by mouth daily. Takes in the afternoon, 1 to 2 pm coenzyme Q10 200 mg capsule Commonly known as: Co Q-10 Take 200 mg by mouth daily. enzalutamide 40 mg capsule Commonly known as: Xtandi Take 120 mg by mouth every morning. Take with or without food at the same time each day. Swallow itwhole. iron,carbonyl-vitamin C 65 mg iron- [address] tablet Commonly known as: Vitron-C Take 65 mg of iron by mouth every morning. Do not crush or chew. metoprolol succinate 50 mg 24 hr tablet Commonly known as: Toprol XL Take 50 mg by mouth at bedtime. mirabegron 50 mg 24 hr tablet Commonly known as: Myrbetriq Take 50 mg by mouth daily. Takes in the afternoon, 1-2 pm nitroglycerin 0.4 mg SL tablet Commonly known as: Nitrostat Place 0.4 mg under the tongue every 5 (five) minutes as needed for chest pain. If chest pain continues after 5 minutes, take the second dose and call 911 rosuvastatin 40 mg tablet Commonly known as: Crestor Take 40 mg by mouth at bedtime. tamsulosin 0.4 mg 24 hr capsule Commonly known as: Flomax TAKE 1 CAPSULE(0.4 MG) BY MOUTH DAILY 30 capsule trospium 20 mg tablet Commonly known as: Sanctura Take 1 tablet (20 mg total) by mouth 2 (two) times a day as needed (bladder spasms). please stop 24hours prior to catheter removal 20 tablet Vitamin D3 50 mcg (2,000 Unit) tablet Generic drug: cholecalciferol Take 50 mcg by mouth daily. Xarelto 10 mg tablet Generic drug: rivaroxaban Take 10 mg by mouth every morning. CONSULTS ORDERED DURING THIS ADMISSION IP CONSULT TO DIETITIAN IP CONSULT TO CARE MANAGEMENT IP CONSULT TO CARE MANAGEMENT IP CONSULT TO DIETITIAN IP CONSULT TO UROLOGY IP CONSULT TO WOUND CARE CONDITION AT DISCHARGE stable Discharge instructions were provided to the patient and caregiver(s). Patient was seen, examined, and plan of care was discussed with Dr. Gabe Rivas DO. PGY-1 [facility] [place]la Associated attestation - Gabe Buckley M.D. - 11/17/2023 6:37 PM CDT I saw the patient on the day of discharge and agree with the discharge plans and disposition. documented in this encounter Medications at Time of Discharge Medication Sig Dispensed Refills Start Date End Date amLODIPine (NORVASC) 10 mg tablet Take 10 mg by mouth daily. Takes in the afternoon, 1 to 2 pm 01/11/2020 cholecalciferol (Vitamin D3) 50 mcg (2,000 Unit) tablet Take 50 mcg by mouth daily. clopidogreL (Plavix) 75 mg tablet Take 1 tablet (75 mg total) by mouth every morning. DO NOT TAKE UNTIL FOLLOW-UP 11/17/2023 coenzyme Q10 (CO Q-10) 200 mg capsule [...] as of this encounter Progress Notes * Nereida Bolton, LARRYN, LD - 11/17/2023 12:40 PM CDT Clinical Note Types: Reassessment NUTRITION ASSESSMENT Percentage of Meals Eaten for the past 72 hrs: Percent Meals Eaten (%) 11/16/23 1805 100 Patient has been ordering 3 meals/day and yesterday ordered about 1600 kcal and 80 g protein meeting about 80% of needs. However he did ask about some other foods he would like to try that are not allowed on the cardiovascular/2 gm sodium diet. Non-severe (moderate) Malnutrition (11/15/23) The patient does meet the ASPEN Criteria of malnutrition based on: Energy Intake: Less than 75% of estimated energy requirement for greater than or equal to 1 month Interpretation of Weight Loss: 7.5% 3 months Body Fat: Normal Muscle Mass: Normal Fluid Accumulation: Absent Reduced Electrician Yard Strength: Not applicable This is in the context of Chronic Illness. PERTINENT LABS: Last 3 results Lab Units 11/17/23 0724 11/16/23 0625 11/15/23 0731 SODIUM P mmol/L 138 138 138 POTASSIUM P mmol/L 4.3 4.5 4.2 CHLORIDE P mmol/L 106 108* 107 BUN P mg/dL 18 20 19 CREATININE mg/dL 1.04 1.13 1.04 CALCIUM P mg/dL 8.4* 8.4* 8.3* ANTHROPOMETRICS Height: 177.8 cm Admission Weight: 81.2 kg Weight: 84.8 kg Dietary Orders (From admission, onward) Start Ordered 11/17/23 1152 Adult Diet Regular (Adult Diet) Diet effective now Question: Diet texture: Answer: Regular 11/17/23 1151 NUTRITION DIAGNOSIS: Malnutrition (undernutrition) related to need for healing as evidenced by eating less than 75% of nutrition needs and 7.5% weight loss in 3 months. Nutrition Diagnosis Reassessment: Ongoing NUTRITION PLAN AND INTERVENTIONS: Interventions: Modify diet order (Liberalized diet to allow more food choices due to malnutrition.) MONITORING AND EVALUATION: Nutrition Monitoring/Evaluation Monitoring: Meals/Supplement Intake, Nausea/Vomiting/Diarrhea * Chary Romero L.I.C.S.W. - 11/16/2023 10:53 AM CDT SUBJECTIVE Patient is a 83 y.o. male who was admitted to [facility] 11/14/2023 due to Hematuria Gross [R31.0]. Patient was accompanied by daughter (Mindy) and son (Kar). This investment underwriter continues to assist in home health care reconnection. 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) Atherosclerotic Heart Disease Of [place] Coronary Artery Without Angina Pectoris Complication Procedure Initial Deficiency Iron Hyperlipidemia Hypertension Essential Primary Fci Current Use Of Other Agents Affecting Estrogen Receptors And Estrogen Levels Loss Hearing Sensorineural Bilateral Other Artificial Openings Of Urinary Tract Status (HCC) Presence Of Other Vascular Implants And Grafts Other Specified Disorders Of Bladder Other Retention Of Urine PreDiabetes Presence Of Other Specified Devices Presence Of Urogenital Implants Radiation Therapy Proctitis Unspecified Complication Of Genitourinary Prosthetic Device Implant And Graft Initial (HCC) Inferior Vena Cava Filter 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 INTERVENTION Patient's daughter, Mindy, provided this investment underwriter with contact information for Doreen Javier, nurse child care attendant for [facility]; [phone]. This investment underwriter left Doreen a voicemail, requesting a return call to obtain baseline and discuss resumption of service at discharge. PLAN Case management will continue to coordinate home health care reconnection. * Candelaria Rivas D.O. - 11/16/2023 8:19 AM CDT SUBJECTIVE Kalen Vega is a 83 y.o. male who was admitted to the hospital for Hematuria Gross INTERVAL HISTORY Patient was awake and joined by his daughter Mindy and son Kar for rounds this morning. He has been doing well overnight, and was happy to hear his hemoglobin had increased to 9.4 after his transfusion yesterday. He reports no concerns this morning, and his output has been clear. Discussed plan with him and his family. I have reviewed the current medication list. REVIEW OF SYSTEMS Full ROS performed, positives as per HPI, otherwise negative. OBJECTIVE Admission Weight: 81.2 kg Current Weight: 84.1 kg VITAL SIGNS Temperature: [36.1 ??C-37.4 ??C] 36.1 ??C Heart Rate: [70] 70 Resp Rate: [16-18] 18 Blood Pressure: (105-118)/(57-65) 116/58 SpO2: [96 %-98 %] 97 % Flow Rate (L/min): [0 L/min] 0 L/min Pulse Rate: [60-73] 60 PHYSICAL EXAM Vitals reviewed. Constitutional General: He is not in acute distress. Appearance: He is not ill-appearing or toxic-appearing. Cardiovascular Rate and Rhythm: Normal rate and regular rhythm. Heart sounds: Normal heart sounds. Pulmonary Effort: Pulmonary effort is normal. Breath sounds: Normal breath sounds. Abdominal General: Bowel sounds are normal. Genitourinary Comments: Nephrostomy tube bag and Medina bag are both clear yellow without sedimentation or clots Skin General: Skin is warm and dry. Neurological Mental Status: He is alert and oriented to person, place, and time. Psychiatric Mood and Affect: Mood normal. Thought Content: Thought content normal. Judgment: Judgment normal. 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 Urology following, appreciate recommendations. Is on both Plavix and Xarelto at home. Urology recommendations on restarting blood thinners, dependent on hematuria resolution. Clear urine in nephrostomy bag. Has gotten many blood transfusions in the past, and is chronically around a hemoglobin of 9. Urine is clear without clots or continued bleeding. - Trial restarting Xarelto and monitoring throughout the day for rebleeding. If tolerated today, then may consider restarting Plavix as well then monitoring. The patient's last stent was in 2016, so should reevaluate if Plavix is necessary. Weigh risk or bleeding vs clot. -transfuse 1 unit of packed red blood cells if hemoglobin decreases below 8, CAD history -monitor for CBC daily -monitor for bleeding around catheter or in medina bag -monitor CMP for kidney function -continue TOMATO GRADER tamsulosin -continue TOMATO GRADER enzalutamide -urine culture, per urology # Coronary artery disease without angina pectoris, status post 6 stents # History of DVTs, status post IVC filter # Hyperlipidemia Is on both Plavix and Xarelto at home. -start Xarelto 11/16/2023 so response can be monitored while hospitalized -continue TOMATO GRADER amlodipine -continue TOMATO GRADER rosuvastatin -continue TOMATO GRADER metoprolol # Chronic Pressure Wound, Coccyx -continue wound care -offloading as much as possible Non-severe (moderate) Malnutrition (11/15/23) The patient meets the ASPEN Criteria of malnutrition based on: Energy Intake: Less than 75% of estimated energy requirement for greater than or equal to 1 month Interpretation of Weight Loss: 7.5% 3 months Body Fat: Normal Muscle Mass: Normal Fluid Accumulation: Absent Reduced Electrician Yard Strength: Not applicable This is in the context of Chronic Illness. Agree with Registered Dietitian's assessment and treatment plan: Interventions: Other (Plans to trial diet advancement today. Pt declining the need for snacks and supplements at this time. Pt does focus on consuming protein foods first. If intake is not adequate, please liberalize to a regular diet.) Indwelling Urinary Catheter Non-latex 22 Fr. (Active) Placement Date/Time: 11/14/23 1231 Placed by: Faith Whalen RN Hand Hygiene Performed Prior to Insertion: Yes Sterile technique followed?: Yes Catheter Type: (c) Non-latex Tube Size (Fr.): 22 Fr. Catheter Balloon Size: 30 mL Urine Returned: Yes Bladder Irrigation Continuous Three-way 22 Fr (Active) Placement Date/Time: 11/14/23 1235 Placed by: Faith Whalen RN Bladder Irrigation Type: Continuous Catheter Type: Three-way Catheter Size: 22 Fr Balloon Size: 30 mL Urine Returned: Yes Medina Catheter Present?:Yes Indication: Chronic Indwelling Plan for Removal: No plan for removal at this time. FEN: Current Diet Adult Diet Regular; 2,000 mg Na; Cardiovascular starting at 11/14 1129 CODE STATUS: Full Code DVT PPX: SCDs DISCHARGE INFORMATION: DISPOSITION: Pending anticoagulation restart with hematuria resolution. Unknown date of discharge. Monitor at least 24-48 hours after restarting anticoagulation. This patient was seen and examined by me and Gabe Buckley M.D. Bethany Reyhaus, DO. PGY-1 [facility] [place]la Associated attestation - Gabe Buckley M.D. - 11/16/2023 6:25 PM CDT I saw and evaluated the patient, participating in the henderson portions of the service. I reviewed the resident/fellow???s note. I agree with the resident/fellow???s findings and plan. 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 [place] Coronary Artery Without Angina Pectoris Deficiency Iron Hyperlipidemia Hypertension Essential Primary Fci Current Use Of Other Agents Affecting Estrogen Receptors And Estrogen Levels Radiation Therapy Proctitis Inferior Vena Cava Filter Fci (Current) Anticoagulant Treatment Resolved Problems: * No resolved hospital problems. * Briefly, this is a 83 y.o. male with a history of prostate cancer s/p radiation therapy (with radiation cystitis), coronary artery disease s/p multi stents (on clopidogrel), DVT s/p IVC filter (on rivaroxaban), chronic indwelling Medina, nephrostomy tube placement (09/13/23) presenting from home on 11/14/2023 with hematuria Interval History: Urine currently clear, continues to have Medina in place Treatment Updates: Hematuria: Presented with bleeding around his Medina catheter. Admit labs with WBC 7.3, hemoglobin 8.2, platelets 374, Na 139, K 4.6, Cr 1.12, urinalysis with >100RBC/>100WBC/bacteria. Urology assisting with care. Urine cleared with continuous bladder irrigation. Acute blood loss anemia: Admit hemoglobin 8.2, baseline hemoglobin 9-10. Required pRBC. Last hemoglobin 7.7->9.4->9.2 Anticoagulation Discussion: on rivaroxaban and clopidogrel prior to admission. Held on admission. Will restart rivaroxaban today Hypertension: On amlodipine 10 daily, Toprol XL 50 daily prior to admission. Currently on amlodipine 10 daily, Toprol XL 50 daily. SBP 100-110's Family Communication: Discussed the plan for the day and discharge plan with son/Kar at bedside on 11/15 Disposition: I would estimate that the patient will be ready for discharge in 1-2 days pending (1) no further hematuria ADMINISTRATIVE BILLING: Total time spent 40 minutes Gabe Buckley MD Board Certified Physician in Internal Medicine and Pediatrics [facility] Medicine Service * Candelaria Rivas D.O. - 11/15/2023 7:27 AM CDT SUBJECTIVE Kalen Vega is a 83 y.o. male who was admitted to the hospital for Hematuria Gross INTERVAL HISTORY Patient was awake and alert, and his daughter joined us today for rounds. He was feeling a bit better from last night, however he does state that he is tired, from having a long night. He currently has an appetite and would like to get started on some food. He says most of his pain is in his sacralwound, about 2/10, but it is better if he takes pressure off of it. Discussed decreased hemoglobin,and agreed to transfuse 1 unit. Obtained written consent. His daughter states that he has had about30 units transfused over the past year, and a hemoglobin of 9 has been normal for him. Additionally, he has been on 21 days of hyperbaric oxygen therapy. I have reviewed the current medication list. REVIEW OF SYSTEMS Full ROS performed, positives as per HPI, otherwise negative. OBJECTIVE Admission Weight: 81.2 kg Current Weight: 84.1 kg VITAL SIGNS Temperature: [36.2 ??C-37.2 ??C] 36.4 ??C Heart Rate: [70] 70 Resp Rate: [16-20] 18 Blood Pressure: (106-144)/(59-83) 106/59 SpO2: [94 %-98 %] 96 % Flow Rate (L/min): [0 L/min] 0 L/min Height: [177.8 cm] 177.8 cm Weight: [81.2 kg-84.1 kg] 84.1 kg BSA (Calculated - sq m): [2 sq meters] 2 sq meters BMI (Calculated): [25.7 kg/m??-26.6 kg/m??] 26.6 kg/m?? Pulse Rate: [66-82] 69 PHYSICAL EXAM Vitals reviewed. Constitutional General: He is not in acute distress. Appearance: He is not ill-appearing. Cardiovascular Rate and Rhythm: Normal rate and regular rhythm. Heart sounds: Normal heart sounds. Pulmonary Effort: Pulmonary effort is normal. Breath sounds: Normal breath sounds. Abdominal General: Bowel sounds are normal. Palpations: Abdomen is soft. Tenderness: There is no abdominal tenderness. Comments: Nephrostomy site is clear, no erythema. Skin General: Skin is warm and dry. Findings: No erythema or rash. Neurological Mental Status: He is alert and oriented to person, place, and time. Psychiatric Mood and Affect: Mood normal. Thought Content: Thought content normal. Judgment: Judgment normal. DIAGNOSTICS CT Abdomen Pelvis without IV Contrast Result Date: 11/14/2023 Impression: 1. Interval removal of the right double-J nephroureteral stent with recurrent moderate to severe right hydroureteronephrosis. 2. Interval placement of a left percutaneous nephrostomy tube. 3. Small amount of hyperdense material within the urinary bladder, likely representing blood products. 4. Focal wall thickening along the right bladder base near the ureterovesicular junction which is unchanged compared with multiple prior exams. 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 Urology following, appreciate recommendations. Is on both Plavix and Xarelto at home. Urology recommendations on restarting blood thinners, dependent on hematuria resolution. Clear urine in nephrostomy bag. Has gotten many blood transfusions in the past, and is chronically around a hemoglobin of 9. -transfuse 1 unit of packed red blood cells if hemoglobin decreases below 8, CAD history -monitor CBC daily -continue CBI and titrate as tolerated per urology recommendations -monitor CMP for kidney function -continue TOMATO GRADER tamsulosin -continue TOMATO GRADER enzalutamide -urine culture, per urology # Coronary artery disease without angina pectoris, status post 6 stents # History of DVTs, status post IVC filter # Hyperlipidemia Is on both Plavix and Xarelto at home. Urology recommendations on restarting blood thinners. -may consider restarting one or both on 11/16/2023 so response can be monitored while hospitalized -continue TOMATO GRADER amlodipine -continue TOMATO GRADER rosuvastatin -continue TOMATO GRADER metoprolol # Chronic Pressure Wound, Coccyx -continue wound care -offloading as much as possible Non-severe (moderate) Malnutrition (11/15/23) The patient meets the ASPEN Criteria of malnutrition based on: Energy Intake: Less than 75% of estimated energy requirement for greater than or equal to 1 month Interpretation of Weight Loss: 7.5% 3 months Body Fat: Normal Muscle Mass: Normal Fluid Accumulation: Absent Reduced Electrician Yard Strength: Not applicable This is in the context of Chronic Illness. Agree with Registered Dietitian's assessment and treatment plan: Interventions: Other (Plans to trial diet advancement today. Pt declining the need for snacks and supplements at this time. Pt does focus on consuming protein foods first. If intake is not adequate, please liberalize to a regular diet.) Indwelling Urinary Catheter Non-latex 22 Fr. (Active) Placement Date/Time: 11/14/23 1231 Placed by: Faith Whalen RN Hand Hygiene Performed Prior to Insertion: Yes Sterile technique followed?: Yes Catheter Type: (c) Non-latex Tube Size (Fr.): 22 Fr. Catheter Balloon Size: 30 mL Urine Returned: Yes Bladder Irrigation Continuous Three-way 22 Fr (Active) Placement Date/Time: 11/14/23 1235 Placed by: Faith Whalen RN Bladder Irrigation Type: Continuous Catheter Type: Three-way Catheter Size: 22 Fr Balloon Size: 30 mL Urine Returned: Yes Medina Catheter Present?:Yes Indication: Chronic Indwelling Plan for Removal: No plan for removal at this time. FEN: Current Diet Adult Diet Regular; 2,000 mg Na; Cardiovascular starting at 11/14 1129 CODE STATUS: Full Code DVT PPX: SCDs DISCHARGE INFORMATION: DISPOSITION: Pending anticoagulation restart with hematuria resolution. Unknown date of discharge. Monitor at least 24-48 hours after restarting anticoagulation. This patient was seen and examined by me and Rashawn Vences M.D. Bethany Reyhaus, DO. PGY-1 [facility] Associated attestation - Rashawn Vences M.D. - 11/15/2023 5:57 PM CDT I saw and evaluated the patient, participating in the henderson portions of the service. I reviewed the resident/fellow???s note. I agree with the resident/fellow???s findings and plan. This is a blindingly complex 83-year-old white male prostate cancer survivor status post radiation therapy currently on androgen deprivation therapy, coronary artery disease with multiple stents, DVTon Xarelto with IVC filter in place, chronic indwelling Medina catheter and left nephrostomy tube due to hydronephrosis, amongst other issues. He showed up in the [place] [facility] room yesterday with complaints of a clogged urinary catheter with bloody urine. He was sent to our facility for further cares. Urine appears to be clearing. Appreciate urology consult. Continue to titrate down CBI as tolerated. They advised we could restart anticoagulation tomorrow. Consider restarting 1 or the other of Plavix or Xarelto versus both together. I would recommend monitoring at least 24-48 hours. Discussed with patient and family. Transfuse for goal of hemoglobin 8. 1 unit today, recheck tomorrow. Total time: 52 minutes documented in this encounter H&P Notes * OlSylvie reyes M.B.B.S., M.D. - 11/15/2023 12:26 AM CDT Date of Admission: 11/14/2023 LOS: 1 day Primary Care Physician: ELSEWHERE, PCP SUBJECTIVE REASON FOR ADMISSION: Gross hematuria. HISTORY OF PRESENT ILLNESS Kalen Vega is a 83 y.o. 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 Patient also has a history of coronary artery disease status post 6 stents, history of DVT status post IVC filter. Patient has a chronic indwelling catheter, also has a left nephrostomy tube which was placed on 09/13/2023. Of note, patient is on Plavix and Xarelto - last took them yesterday, 11/13/2023. He has had recurrent admissions and visits for hematuria. Patient presented at [facility] yesterday because of bleeding around his Medina catheter. He reportsthat he noticed dark red blood in his Medina on Tuesday which cleared. However, yesterday morning he woke up to notice that there was no urine in his Medina catheter but there was leaking of blood around his Medina and down his legs. He reports clear urine in his nephrostomy bag. Patient denies pain, no fever. No nausea or vomiting, no abdominal pain. Patient presented at [facility] where urology was contacted, manual bladder irrigation with normal saline was performed, and patient was started on CBI. Patient transferred here for further management. REVIEW OF SYSTEMS Constitutional: No fever/chills/night sweats. Weight stable. Ears, nose, mouth, throat, and face: No sore throat, nasal discharge. Respiratory: No shortness of breath/wheezing/cough. Cardiovascular: No chest pain/palpitations/orthopnea/PND. Gastrointestinal: No abdominal pain, nausea, vomiting, diarrhea, constipation, melena, hematochezia. Genitourinary: Passage of blood in urine. Integument: No rashes or easy bruising. Musculoskeletal: No joint or muscle pain Neurological: No dizziness, GLEZ, LOC, focal weakness, numbness/tingling. ALLERGIES/CONTRAINDICATIONS No Known Allergies CURRENT MEDICATIONS Current Outpatient Medications on File Prior to Encounter Medication Sig Dispense Refill Last Dose amLODIPine (NORVASC) 10 mg tablet Take 10 mg by mouth daily. Takes in the afternoon, 1 to 2 pm 11/13/2023 cholecalciferol (Vitamin D3) 50 mcg (2,000 Unit) tablet Take 50 mcg by mouth daily. 11/13/2023 clopidogreL (PLAVIX) 75 mg tablet Take 75 mg by mouth every morning. 11/13/2023 coenzyme Q10 (CO Q-10) 200 mg capsule Take 200 mg by mouth daily. 11/13/2023 enzalutamide (XTANDI) 40 mg capsule Take 120 mg by mouth every morning. Take with or without food at the same time each day. Swallow it whole. 11/13/2023 iron,carbonyl-vitamin C (VITRON-C) 65 mg iron- [address] tablet Take 65 mg of iron by mouth every morning. Do not crush or chew. 11/13/2023 metoprolol succinate (TOPROL-XL) 50 mg 24 hr tablet Take 50 mg by mouth at bedtime. 11/13/2023 mirabegron (MYRBETRIQ) 50 mg 24 hr tablet Take 50 mg by mouth daily. Takes in the afternoon, 1-2 pm11/13/2023 rosuvastatin (CRESTOR) 40 mg tablet Take 40 mg by mouth at bedtime. 11/13/2023 tamsulosin (FLOMAX) 0.4 mg 24 hr capsule TAKE 1 CAPSULE(0.4 MG) BY MOUTH DAILY (Patient taking differently: Take 0.4 mg by mouth at bedtime.) 30 capsule 0 11/13/2023 Xarelto 10 mg tablet Take 10 mg by mouth every morning. 11/13/2023 nitroglycerin (NITROSTAT) 0.[address] 0.4 mg under the tongue every 5 (five) minutes as needed for chest pain. If chest pain continues after 5 minutes, take the second dose and call 911 Unknown trospium (SANCTURA) 20 mg tablet Take 1 tablet (20 mg total) by mouth 2 (two) times a day as needed(bladder spasms). please stop 24 hours prior to catheter removal 20 tablet 0 Unknown Patient History MEDICAL HISTORY Patient Active Problem List Diagnosis Primary Malignant Neoplasm Of Prostate (HCC) Lymphedema Hematuria Hematuria Gross History reviewed. No pertinent past medical history. SURGICAL HISTORY Past Surgical History: Procedure Laterality [...] M.D.; Location: [facility] FAMILY HISTORY His father had lung cancer. Two sisters have diabetes mellitus. SOCIAL HISTORY Social History Tobacco Use Smoking status: Never Smokeless tobacco: Never Substance Use Topics Alcohol use: Not on file Patient resides at home with his , Meera. OBJECTIVE VITAL SIGNS There were no vitals taken for this visit. PHYSICAL EXAMINATION General: Alert and Oriented x3. Afebrile. Patient is very comfortable at rest. Cooperative and pleasant. HEENT: Normocephalic, atraumatic. No scleral icterus. Oral mucosa moist. Neck: Supple. No lymphadenopathy. Cardiovascular: Normal S1/S2. No murmurs. Lungs: Clear to Auscultation. Patient is on room air, not dyspneic. Abdomen: Soft, nontender, nondistended. Positive bowel sounds. Left left nephrostomy tube draining clear urine. CBI ongoing, blood-tinged urine in bag. Skin: Pressure ulcer, buttock. Extremities: No bilateral lower extremity edema. Neurological: Grossly intact. Intake/Output Summary (Last 24 hours) at 11/15/2023 0026 Last data filed at 11/14/2023 2354 Gross per 24 hour Intake -- Output 2000 ml Net -2000 ml DIAGNOSTICS Data Review CBC: Results from last 7 days Lab Units 11/14/23 1109 WBC x10(9)/L 7.3 HEMOGLOBIN g/dL 8.2* HEMATOCRIT % 27.1* PLATELETS AUTO x10(9)/L 374* BMP: Results from last 7 days Lab Units 11/14/23 1109 SODIUM P mmol/L 139 CHLORIDE P mmol/L 106 BUN P mg/dL 24 CREATININE mg/dL 1.12 CALCIUM P mg/dL 9.1 Coagulation: Cardiac Markers: Liver Panel: Microbiology: No results found for this visit on 11/14/23 (from the past 72 hour(s)). Radiology: No orders to display ASSESSMENT / PLAN Gross hematuria Anemia - patient has chronic anemia, hemoglobin now 8.2. Patient presented to [facility] ED because of bleeding around his Medina catheter. At [facility], patient had manual bladder irrigation with normal saline, CBI was started. Patient to continue CBI, NPO at midnight. Urology consultation. At this time, will hold Plavix and Xarelto. Monitor H&H, plan to transfuse if hemoglobin less than 8.0, patient has a history of CAD. 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 Patient with metastatic prostate cancer status post radiation, currently on enzalutamide. Follows with Urology and Oncology. Patient has a chronic indwelling Medina catheter, also has a left nephrostomy tube which was placed on 09/13/2023. In August, patient developed clot obstruction complicated by bladder perforation, status post exploratory laparotomy and a cystostomy closure on 08/15/2023. Coronary artery disease - status post 6 stents. Patient takes Plavix, last took it on 11/13/2023. Hold Plavix due to bleeding. Resume metoprolol, Crestor. Personal history of DVT - status post IVC filter. On Xarelto - patient last took it on 11/13/2023. Pressure ulcer, buttock - wound care consult. I have reviewed chart and discussed all findings, results and plan with patient. I have answered his questions. Patient would like a discussion between his urologist and Cardiology to decide on continuation of Plavix, Xarelto. ANTICOAGULANTS/DVT PROPHYLAXIS: No anticoagulation due to ongoing active bleeding. DIET: Current Diet Adult Diet Regular starting at 11/14 0025 INFUSIONS: NaCl 0.9% infusion, 50 mL/hr LDA: Indwelling Urinary Catheter Non-latex 22 Fr. (Active) Placement Date/Time: 11/14/23 1231 Placed by: Faith Whalen RN Hand Hygiene Performed Prior to Insertion: Yes Sterile technique followed?: Yes Catheter Type: (c) Non-latex Tube Size (Fr.): 22 Fr. Catheter Balloon Size: 30 mL Urine Returned: Yes Bladder Irrigation Continuous Three-way 22 Fr (Active) Placement Date/Time: 11/14/23 1235 Placed by: Faith Whalen RN Bladder Irrigation Type: Continuous Catheter Type: Three-way Catheter Size: 22 Fr Balloon Size: 30 mL Urine Returned: Yes Medina Catheter Present?: Yes, Indication:Chronic Indwelling Plan for Removal: No plan for removal at this time. CODE STATUS: Full Code Anticipated discharge date and discharge in 1-2 days. Total time spent 75 minutes. Kyle Wilde M.D. documented in this encounter Consult Notes * Yessy Khan, SHANNAN, LD - 11/15/2023 12:22 PM CDTAssociated Order(s): Dietitian consult (hospital); Dietitian Consult ([facility]) Dietitian Consult (Hospital) Referring Provider: [facility] Dietitian consult (reading hospital) Referring Provider: [facility] Clinical Note Types: Initial Assessment/Consult NUTRITION VISIT REASON: unsure weight change and unstageable pressure ulcer on coccyx NUTRITION ASSESSMENT Admitting Diagnosis: hematuria Past Medical History: primary malignant neoplasm of the prostate status post radiation therapy withhistory of radiation cystitis, currently on ADT. Patient also has a history of coronary artery disease status post 6 stents, history of DVT status post IVC filter. Patient has a chronic indwelling catheter, also has a left nephrostomy tube which was placed on 09/13/2023. Social History: from home with Food and Nutrition Related History Previous Diet: Family reports that pt had lost 28lbs during his stay in [place] as he was NPO for12 days then was restricted to a liquid diet for a couple days. Pt was there for a bladder repair with ureteral stent placement. Pt noted since then he has been dealing with an unstageable pressure ulcer on his coccyx. Pt did return home and then reports loosing an add'l 3lbs but states he has beenable to regain some weight back with recent weight of 185lbs. Pt has been focusing on getting good sources of protein. For breakfast he will consume eggs, toast, PB and sausage. For lunch he will consume a protein shake Ka'shayy or Orgain mixed with fruit and whole milk. He brings these shakes along with him during treatment fo rprostate cancer otherwise he use to skip a meal. For supper he will consume some meat and veggies. Pt currently NPO but urology reports okay with advancing diet and family is wondering if he can order something. Weight Change History: Weight per EMR: 90.7kg (11/22/22), 94.3kg (04/05/23), 94.3kg (07/21/23), 91.2kg (08/13/23) & 84.1kg (11/25/23). Pt with a 7.5% weight loss in the past 3 months which is significant. Skin Integrity: unstageable pressure ulcer on coccyx Non-severe (moderate) Malnutrition (11/15/23) The patient does meet the ASPEN Criteria of malnutrition based on: Energy Intake: Less than 75% of estimated energy requirement for greater than or equal to 1 month Interpretation of Weight Loss: 7.5% 3 months Body Fat: Normal Muscle Mass: Normal Fluid Accumulation: Absent Reduced Electrician Yard Strength: Not applicable This is in the context of Chronic Illness. PERTINENT LABS: Last 3 results Lab Units 11/15/23 0731 11/14/23 1109 SODIUM P mmol/L 138 139 POTASSIUM P mmol/L 4.2 4.6 CHLORIDE P mmol/L 107 106 BUN P mg/dL 19 24 CREATININE mg/dL 1.04 1.12 CALCIUM P mg/dL 8.3* 9.1 ANTHROPOMETRICS Height: 177.8 cm Admission Weight: 81.2 kg Weight: 84.1 kg BMI (Calculated): 26.6 kg/m?? % [place] Body Weight: 111 % IBW Adjusted Body Weight : 75 Kg ESTIMATED NEEDS: Weight Used for Equation Calculations: 81.2 kg kcal/k-25 Estimated Energy Needs (Low): 1787 kcal/day Estimated Energy Needs (High): 2030 kcal/day Weight Used to Calculate Protein Needs (Kg): 81.2 kg Method to Estimate Protein Needs (g/kg): 1 - 1.3 Estimated Protein Needs (Low): 81 Estimated Protein Needs (High): 106 Dietary Orders (From admission, onward) Start Ordered 11/15/23 1129 Adult Diet Regular; 2,000 mg Na; Cardiovascular (Adult Diet) Diet effective now Question Answer Comment Diet texture: Regular Sodium: 2,000 mg Na Other restrictions: Cardiovascular 11/15/23 1129 NUTRITION PLAN AND INTERVENTIONS: Interventions: Other (Plans to trial diet advancement today. Pt declining the need for snacks and supplements at this time. Pt does focus on consuming protein foods first. If intake is not adequate, please liberalize to a regular diet.) MONITORING AND EVALUATION: Nutrition Monitoring/Evaluation Monitoring: Meals/Supplement Intake, Nausea/Vomiting/Diarrhea * Chary Romero, L.I.C.S.WJonah - 11/15/2023 11:34 AM CDTAssociated Order(s): IP CONSULT TO CARE MANAGEMENT; IP CONSULT TO CARE MANAGEMENT Psychosocial Assessment SUBJECTIVE Assessment Information Referral Source: Provider/Service Referral Reason: Psychosocial assessment, Discharge Planning, Other (comment) Primary Language: Lithuanian Sys Dir Services Used: No Sexuality/Pronoun: / Person(s) present during interview: patient and childJulie Disclaimer: They were advised of the various topics that will be assessed during this evaluation. They consented to proceed. The information provided in the assessment is based on review of the medical record as well as the face to face interview. They were advised that the content of this interview will be shared with the health care team and documented in the medical record. They were advised that anyone with access to their patient portal will have access to this information. It was discussed that staff are mandated reporters and they reported understanding. 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 Has another son (Kar) and a daughter (Mindy). Support System: spouse and children Spirituality/Restorationist/Cultural Factors: None History: No Highest Level of Education: bachelor's degree Employment: retired Maltreatment: none reported Current Stressors Family dynamics Coping Skills/Strengths Patient reported [place] and used to have horses and cows and enjoy yardwork but it has become difficult to do the things he used to enjoy. Financial/Insurance Primary insurance: MEDICARE A AND B Secondary insurance: MEDICA Advance Directives Legal Decision Maker: Self Advance Directives: Advanced Care Plan Baseline Functional Status Baseline Activities of Daily Living Mobility: Independent (No longer needs walker as of a few weeks ago) Dressing: Independent Feeding: Independent Bathing: Independent Grooming: Independent Toileting: Independent Behavior: Appropriate, Pleasant, Calm, Cooperative, Oriented Communication: Talks, Understands speaking, Understands Lithuanian Shopping: Appropriate to age/development Medication Management: Independent Housekeeping: Appropriate to age/development Meal Prep: Appropriate to age/development Assistive Devices: Eyeglasses, Hearing aid(s) Agency Name: [facility] Provided: detention once weekly for wound care, PT, social work, Makenzie child care attendant Transportation: Support from family Baseline Services/Resources Primary care clinic and provider: ELSEWHERE, PCP Anticipated Needs Functional Status: Tasks appropriate to patient's age/development, Transportation use (drive car, use taxi/bus) Assistive Devices: Eyeglasses, Hearing aid(s) Services/Resources: Home health Agency Name: [facility] Provided: detention once weekly for wound care, PT, social work, DarwinRN child care attendant Does the patient need discharge transport arranged?: No Anticipated Discharge Destination: Home-Health Care Svc OBJECTIVE Substance Abuse no symptoms Mental Health Mental Health History: Patient reports no mental health history Patient reports no current concerns Mental Health Treatment History No history of Psychiatric Treatment noted Suicide Risk and Safety Risk Assessment: C-SSRS Short Version: Cecil Suicide Severity Rating Scale (Do this one First) 1. Within the past month, have you wished you were or wished you could go to sleep and not wake up?: No 2. Within the past month, have you actually had any thoughts of killing yourself?: No (Not really.It wouldn't be fair.) 6. In your whole life have you ever done anything, started to do anything, or prepared to do anything to end your life?: No Risk Level: Low Risk Homicidal: no Mental Status Orientation: Oriented to person, place and time Level of consciousness: Awake and alert Appearance: Age appearing, Healthy, Relaxed, and Well-groomed Behavior observed: Calm, Interactive, and Good sense of humor Memory: Good based on ability to recall information Concentration: Good based on ability to participate in assessment Cooperation: cooperative, forthcoming, and reliable Mood: okay Affect: Full range Speech: Articulate, Coherent, and Within normal limits for volume, rate and tone Thought content: No abnormality noted Thought process: Intact and Logical, linear, and goal-directed Judgement: intact Insight: intact ASSESSMENT / PLAN Discussion Mindy reported between herself and her siblings, the patient and his are never left alone and someone is with them 01/11. She explained patient receives wound care three times per week; she takes one day, the home health care nurse takes one day, and patient goes to a wound clinic the other day. This investment underwriter spoke to intake with [facility] however the only information provided is that patient is served by the [facility] location and receives care home, physical therapy, and social work and the fax number for discharge paperwork was provided. Interventions Psychosocial assessment completed. Provided supportive services. Provided education regarding the role of social work. Plan It is anticipated patient will return home with family and resume services through [facility]. Mark GardinerSTimi 11/15/2023 * Jerri Toledo R.N., C.W.C.N., [facility] - 11/15/2023 10:54 AM CDTAssociated Order(s): IP CONSULT TO WOUND CARE REASON FOR CONSULT: Stage 3 Coccyx Pressure Injury Present Upon Admission HISTORY OF PRESENT ILLNESS: Kalen Vega is a 83 y.o. 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 Patient also has a history of coronary artery disease status post 6 stents, history of DVT status post IVC filter. Patient has a chronic indwelling catheter, also has a left nephrostomy tube which was placed on 09/13/2023. Of note, patient is on Plavix and Xarelto - last took them yesterday, 11/13/2023. He has had recurrent admissions and visits for hematuria. Patient presented at [facility] yesterday because of bleeding around his Medina catheter. He reportsthat he noticed dark red blood in his Medina on Tuesday which cleared. However, yesterday morning he woke up to notice that there was no urine in his Medina catheter but there was leaking of blood around his Medina and down his legs. He reports clear urine in his nephrostomy bag. Patient denies pain, no fever. No nausea or vomiting, no abdominal pain. Patient presented at [facility] where urology was contacted, manual bladder irrigation with normal saline was performed, and patient was started on CBI. Patient transferred to [facility] for further management. WOUND ASSESSMENT: Wound Type: Pressure Injury MC Pressure Injury Staging: Stage 3 Wound Location: Coccyx Wound Orientation: Mid Wound Tunnel/Induration: Length 1 cm, Width 0.5 cm, and Depth 0.3 cm. Wound Bed Tissue: Red and Granulation tissue 100% Leslee-Wound Skin: Blanchable erythema, Maceration, and [place] PLAN: COCCYX: DAILY 1. Cleanse wound with Vashe wound cleanser 2. Pat skin dry 3. Cut a small piece of Aquacel dressing to fit the wound bed 4. Apply a thin layer of zinc barrier cream to the entire leslee wound area 5. Apply a dry 4 x 4 gauze and a 5 x 9 ABD over the top. Tape in place. OFFLOADING : 1. [employer] 3 mattress. Ensure it is plugged in and operational at all times. Set firmness to patient comfort level. Okay to Auto Firm for dressing changes but remember to turn the Auto Firmoff. 2. Head of bed no> 30??, except with meals. 3. Turn every 2 hours. 4. Limit time in chair to 1-2 hour increments. Utilize chair cushion. Be sure the head of the chairis reclined as far back as possible to limit sliding down in chair. Please contact [facility] RNs if you have any question or concerns regarding wound care. Jerri Toledo R.N., [place] at [phone] Starla Ménedz R.N., LE at [phone] * Zachery Tanner APRN, C.N.P., M.S. - 11/15/2023 8:06 AM CDTAssociated Order(s): Urology consult (hospital) SUBJECTIVE Urology consult (hospital) Referring Provider: Rashawn Vences M.D. REASON FOR CONSULT Gross hematuria HISTORY OF PRESENT ILLNESS Mr. Vega is a 83 y.o. male who presents with past medical history significant for history of DVT status post IVC filter on Plavix, coronary artery disease status post stent, degenerative joint disease, hyperlipidemia, lymphedema, prediabetes, personal history of radiation therapy with radiation cystitis/proctitis. Urology history significant for Advanced prostate cancer status post radiation with bone metastasis on enzalutamide and leuprolide follows with Medical Oncology Dr. Tan in [place], [place]. 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 Patient developed clot obstruction complicated by bladder perforation, necessitating exploratory laparotomy and cystotomy closure on 08/15/2023. He re-presented on 08/30 with recurrent gross hematuria and clots and underwent cystoscopy with clot evacuation on 08/30. Currently undergoing outpatient hyperbaric O2 in [facility]. Mr. Vega currently admitted to [facility] in the setting of recurrent gross hematuria. He wasseen in evaluation at [facility] in the setting of concern for catheter occlusion. He has chronically on Plavix/Xarelto. Last dose 11/13/2023. CT imaging of the abdomen pelvis on 11/14/2023 with right-sided moderate-severe right-sided hydroureteronephrosis in the setting of nonfunctioning kidney with the additional small amount of hyperdense material within the urinary bladder questioning blood chronic with focal thickening along the right bladder base near UVJ unchanged in comparison to historical imaging. Ultimately [address] catheter was placed and patient was hand irrigated and initiated on CBI.Patient was transferred to [facility] for ongoing management. Urinalysis 11/15/2023 with greater than 100 WBCs/greater than 100 urine RBCs with bacteria present. Hemoglobin 7.7 on 11/15/2023. No concerning leukocytosis. Per review vitals afebrile. Hemodynamically stable. Pain controlled. Currently on CBI at slow drip. Urine clear in nature. No reported need for hand irrigation overnight. Denies any fevers, chills, nausea, vomiting. Denies any flank discomfort/abdominal pain. Review of Systems All other systems reviewed and are negative. Problem List * (Principal) Hematuria Gross Relevant Urological Surgical History Past Surgical History No Urological Surgical History documented The following portions of the patient's history were reviewed and updated as appropriate: allergies, current medications, family history, medical history, social history, surgical history, and problem list. OBJECTIVE VITAL SIGNS Temp (48hrs), Av.7 ??C, Min:36.2 ??C, Max:37.2 ??C Temperature: [36.2 ??C-37.2 ??C] 36.7 ??C Heart Rate: [70] 70 Resp Rate: [16-20] 16 Blood Pressure: (101-183)/(54-170) 122/64 SpO2: [94 %-100 %] 94 % Pulse Rate: [62-83] 67 Intake/Output I/O last 3 completed shifts: In: 0 Out: 3950 [Urine:3950] Physical Exam URO Physical Exam General: Alert and oriented, in no acute distress. HEENT: Normocephalic, atraumatic. Lung: Normal respiratory effort. No respiratory distress. Abdomen: Soft, nondistended Lymph: No inguinal lymphadenopathy. Skin: No rashes. Psych: Appropriate affect. Extremities: Warm DIAGNOSTIC FINDINGS Recent Labs 11/15/23 0731 11/14/23 1109 NA -- 139 KPLASMA -- 4.6 CL -- 106 BUN -- 24 CREATININE -- 1.12 GLUCOSE -- 110 HGB 7.7 L 8.2 L HCT 25.7 L 27.1 L WBC 7.1 7.3 PLT 382 H 374 H No results for input(s): AMYLASE, LIPASE, EGFRNONBLKAA, POCEGFRNONAA, ALT, AST, SEDRATE, LABHEPA, TROPONINI, TROPONINT in the last 24 hours. Micro (72 Hrs): No results found for this visit on 11/14/23 (from the past 72 hour(s)). Imaging Results, Last 2 Days - Impression and Addendum Only CT Abdomen Pelvis without IV Contrast Result Date: 11/14/2023 Impression: 1. Interval removal of the right double-J nephroureteral stent with recurrent moderate to severe right hydroureteronephrosis. 2. Interval placement of a left percutaneous nephrostomy tube. 3. Small amount of hyperdense material within the urinary bladder, likely representing blood products. 4. Focal wall thickening along the right bladder base near the ureterovesicular junction which is unchanged compared with multiple prior exams. ASSESSMENT / PLAN #1 Primary Malignant Neoplasm Of Prostate (HCC) #2 Hematuria Gross #3 Personal history of radiation therapy #4 Radiation cystitis currently undergoing HBO #5 Pyuria with urine culture pending #6 Acute on chronic anemia #7 Right atrophic nonfunctioning kidney #8 Anticoagulant therapy Plavix/Xarelto In regards to his complex medical history in the setting of gross hematuria: In the setting of advanced metastatic prostate cancer status post radiation currently on enzalutamide and leuprolide with anticoagulant therapy Plavix/Xarelto with history of radiation therapy with radiation cystitis/proctitis. Anticoagulation: Plavix/Xarelto. Last dose 11/13/2023 Recurrent episodes of gross hematuria currently undergoing outpatient HBO (hyperbaric oxygenation therapy) in [facility]. Recommend to continue HBO in the outpatient setting. Given gross hematuria in the setting of indwelling catheter recommend urine culture. Trend H&H. Hemoglobin 7.7. Afebrile/hemodynamically stable. Transfuse as needed: Per primary team. Hold anticoagulation as able baseline medical comorbidities: Okay to reinitiate anticoagulant therapy if hematuria resolves. Anticoagulation per primary team Continue CBI with hand irrigation as needed. Titrate/wean to goal of clamping CBI if urine characteristics maintain light pink tinge or better characteristics. In regards to his indwelling catheter: No reported history of urinary retention. Will continue indwelling catheter at this time given pending urine culture results and ensure resolution of hematuria. Outpatient appointment scheduled on 12/07/2023 in [place] with Urology. Could consider discussion about catheter removal/formal voiding trial in the outpatient setting as to limit catheter irritation/potential infection risk contributing to hematuria. Significant pyuria on urinalysis in the setting of his gross hematuria would recommend urine culture. 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 Tan in [place], [place]. Per subjective report today undetectable PSA. Will continue to follow with his medical oncologist. Urology will continue to follow along while patient remains acutely hospitalized. Recommendations: Per Urology perspective no plan for surgical management and patient can eat. Gross pyuria on urinalysis in the setting of gross hematuria: recommend urine culture given gross hematuria Trend hemoglobin/hematocrit: Transfuse as needed per primary team/hospitalist Continue current indwelling catheter. Manual bladder irrigation with normal saline, performed as needed, if urine output <30 cc for two consecutive hours and if catheter is not draining, concerns for clot occlusion, dark maroon/ketchup hematuria. Continuous bladder irrigation with normal saline. Continuous bladder irrigation can be weaned/titrated with goal to clamp 3 way catheter when goal urine color/clarity of light peach/ light red or clear with minimal clots. Please page the urology service with questions or concerns utilizing smart web.. It was my pleasure to evaluate the patient at the bedside. We will continue to follow along while he is an inpatient. We will help coordinate urology Outpatient follow-up. The patient understands and agrees with the plan which was explained in layman's terms. All questions were answered. A total of 70 minutes was devoted to the visit of which 40 minutes were spent directly counseling and coordinating care for the patient. Plan of care discussed with Dr. Valdez. Zachery Tanner APRN WEED INSPECTOR Associated attestation - Manav Valdez M.D. - 11/15/2023 4:26 PM CDT I personally performed the substantive portion of this service, which was medical decision-making, pertinent MDM details include: Personal review of CT demonstrates minimal clot burden. Left neph tube in place. Right sided chronic hydronephrosis with atrophic kidney. Hgb 7.7 Cr 1.04 UA >100 wbc with bacteria Plan: -Obtain urine culture -Wean CBI as tolerated; No indication for surgery today -Potentially can consider catheter removal once hematuria clears. The catheter may be a nidus for infection and trauma but also helps prevent repeat bladder rupture. . Refer to the KRISH's note for additional details. documented in this encounter Nursing Notes * Bety Wu M.S.N., R.N. - 11/17/2023 3:55 PM CDT INPATIENT NURSING DISCHARGE SUMMARY Discharge Provider: No att. providers found Admission Date: 11/14/2023 Discharge Date: 11/17/2023 11/17/2023 DISCHARGE DISPOSITION Home/Self Care CONDITION AT DISCHARGE stable TREATMENTS Wound care DEVICES/EQUIPMENT None PROFESSIONAL SKILLED SERVICES None MODE OF DISCHARGE Wheelchair TRANSPORTATION Private Vehicle ACCOMPANIED BY Nurse All belongings sent home with patient. * Nahed Dozier R.N. - 11/17/2023 7:05 AM CDT INPATIENT SHIFT SUMMARY ORIENTATION: A&Ox3 SAFETY MEASURES: Met by Routine ASSISTED MOBILITY: Stand by assist VITALS: Vitals assessed and stable this shift INTAKE: Adequate for solids and Adequate for liquids OUTPUT: Patient has indwelling catheter in place. Left neph tube draining well. CBI clamped for duration ofshift, output clear. PAIN: Pain has been well controlled with scheduled medications and PRNs PRN MEDICATIONS UTILIZED THIS SHIFT: Tylenol DVT PROPHYLAXIS: SCDs CHG/MEDINA CARE NEEDS: Medina cares SHIFT EVENTS: No acute events this shift. Patient slept well through the night. CBI clamped for duration of shift. Urine output clear. UPCOMING PLAN OF CARE: Possible discharge today if am labs okay. * Dorothea Lynch R.N. - 11/16/2023 8:46 PM CDT Shift Goals: Clinical Goals for the Shift: Remain safe: Maintain stable vitals: Maintain CBI. INPATIENT SHIFT SUMMARY ORIENTATION: A&Ox3 SAFETY MEASURES: Met by Routine ASSISTED MOBILITY: Stand by assist VITALS: Vitals assessed and stable this shift INTAKE: Adequate for solids and Adequate for liquids OUTPUT: Patient has indwelling catheter in place. Left neph tube in tact and draining. CBI clamped all day,output clear. PAIN: Patient has not had any complaints of pain this shift. PRN MEDICATIONS UTILIZED THIS SHIFT: None DVT PROPHYLAXIS: SCDs CHG/MEDINA CARE NEEDS: Medina cares SHIFT EVENTS: Pts CBI stayed clamped throughout shift, draining clear. Wound care completed. UPCOMING PLAN OF CARE: Potential discharge tomorrow * Mariajose Berry R.N. - 11/16/2023 5:27 AM CDT INPATIENT SHIFT SUMMARY ORIENTATION: A&Ox3 SAFETY MEASURES: Met by Routine ASSISTED MOBILITY: Stand by assist VITALS: Vitals assessed and stable this shift INTAKE: Adequate for solids and Adequate for liquids OUTPUT: Patient has indwelling catheter in place. Has Left Neph tube. CBI clamped around 2019 on 11/14. PAIN: Patient has not had any complaints of pain this shift. PRN MEDICATIONS UTILIZED THIS SHIFT: None DVT PROPHYLAXIS: SCDs CHG/MEDINA CARE NEEDS: Medina cares SHIFT EVENTS: Clamped CBI at 2019. Output to medina completely clear. UPCOMING PLAN OF CARE: Pending plan from urology * Solitario Gonzalez R.N. - 11/15/2023 8:02 PM CDT Shift Goals: Clinical Goals for the Shift: Remain safe: Maintain stable vitals: Maintain CBI. Identify possible barriers to meeting goals/advancing plan of care: None INPATIENT SHIFT SUMMARY ORIENTATION: A&Ox3 SAFETY MEASURES: Bed Alarm and Chair Alarm ASSISTED MOBILITY: x1, Gait belt, and Walker VITALS: 11/15/231956 Vital Signs Temperature 36.5 ??C Temp Source Temporal Pulse Rate 68 Resp Rate 18 Blood Pressure 112/58 MAP (mmHg) 74 BP Location Right arm;Upper BP Method Automatic Patient Position Lying SpO2 98 % Oxygen Therapy Patient Activity At rest $Delivery Method Room air Flow Rate (L/min) 0 L/min Pain Assessment Pain Score 2 INTAKE: Adequate for solids and Adequate for liquids OUTPUT: Patient has indwelling catheter in place. Patient had a bowel movement today. CBI on slow rate. Urine is clear with some sediments. No clots. PAIN: Pain has been well controlled with PRN medications PRN MEDICATIONS UTILIZED THIS SHIFT: Tylenol DVT PROPHYLAXIS: SCDs CHG/MEDINA CARE NEEDS: Medina cares SHIFT EVENTS: Had 1 unit of RBC. Tolerate it well. Vitals were stable. Bed alarm for safety. UPCOMING PLAN OF CARE: - Monitor CBI, Vitals * Nuvia Ocasio R.N. - 11/15/2023 5:24 AM CDT Shift Goals: Monitoring urine output Identify possible barriers to meeting goals/advancing plan of care: none End of Shift Summary: Pt is a direct admit from [place] ED. He has chronic indwelling catheter, with prostate cancer history. He noticed urine was bloody red. While being seen in [place], 3 waycatheter was inserted and CBI started. Pt arrives with pink-peach tinged urine with a few small redspecks/ few small blood clots. CBI maintained at moderate rate. Large amount emptied from catheter bag. Pt denies pain. Metoprolol, flomax, and crestor given with sips of water, then patient has beenNPO since 0. IV fluids started NS at 50 ml/hr. Urology consult ordered. Also, has wound care consult for ongoing coccyx wound care. New mepilex dressing dry and intact. documented in this encounter Miscellaneous Notes * Hospital Course - Candelaria Rivas D.O. - 11/15/2023 5:51 PM CDT Kalen Vega is 83-year-old male with history of chronic indwelling [place], nephrostomy, primary malignant neoplasm of the prostate with metastasis to bone, history of radiation therapy proctitis, chronic anemia, coronary artery disease with 6 stents, history of DVTs with IVC filter and chronic pressure wounds presented to [place] 11/14/23 gross hematuria including around his indwelling catheter and down his legs. He had been started on continuous bladder irrigation and was transferred for further management. Plavix and Xarelto were both held due to bleeding, and his hemoglobin had decreased to 8.2 on admission. His hemoglobin had gone down to 7.7 on 11/15/2023 and received 1 unit packed red blood cells on 11/15/2023. His hematuria resolved and his hemoglobin held stable after transfusion at around 9.4. His CBI was clamped and he was restarted on Xarelto on 11/16/2023. There was no further bleeding after restarting Xarelto. Discussed holding Plavix until follow-up. Patient was stable and discharged home. documented in this encounter Plan of Treatment Upcoming Encounters Date Type Department Care Team (Latest Contact Info) Description 12/07/2023 10:15 AM CDT Procedure visit Department of Urology in [place], [place] [address] [place] [phone] Burke Strauss M.D. [address] [place] [phone] Discharge Disposition: Home or Self Care 12/07/2023 10:30 AM CDT Office Visit Department of Urology in [place], [place] [address] [place] [phone] Burke Strauss M.D. [facility] [place] [phone] Discharge Disposition: Home or Self Care Pending Results Name Type Priority Associated Diagnoses Date /Time Prepare Red Blood Cells, 1 Units Blood Bank Routine 11/14/2023 11:09 AM CDT Scheduled Referrals Name Type Priority Associated Diagnoses Order Schedule Transitional care post hospital clinic Outpatient Referral Routine 1 Occurrences starting 11/17/2023 until 02/14/2025 [facility] referral Outpatient Referral Routine Hematuria Gross Ordered: 11/17/2023 documented as of this encounter Procedures Procedure Name Priority Date/Time Associated Diagnosis Comments CBC WITHOUT DIFFERENTIAL, B Routine 11/17/2023 7:24 AM CDT BASIC METABOLIC PANEL, S/P Routine 11/17/2023 7:24 AM CDT GLUCOSE POCT, B Routine 11/17/2023 6:45 AM CDT HEMOGLOBIN, B Timed 11/16/2023 4:43 PM CDT CBC WITH DIFFERENTIAL, B Routine 11/16/2023 6:25 AM CDT COMPREHENSIVE METABOLIC PANEL, S/P Routine 11/16/2023 6:25 AM CDT TRANSFUSE RED BLOOD CELLS Routine 11/15/2023 4:17 PM CDT CBC WITH DIFFERENTIAL, B Routine 11/15/2023 7:31 AM CDT COMPREHENSIVE METABOLIC PANEL, S/P Routine 11/15/2023 7:31 AM CDT ECG Routine 11/15/2023 6:47 AM CDT URINALYSIS WITH MICROSCOPIC IF INDICATED, U Routine 11/15/2023 6:25 AM CDT HC URINALYSIS AUTO WO MICRO Routine 11/15/2023 6:25 AM CDT BACTERIAL CULTURE, AEROBIC + SUSC, URINE Routine 11/15/2023 6:24 AM CDT PREPARE RED BLOOD CELLS Routine 11/14/2023 11:09 AM CDT documented in this encounter Results * (ABNORMAL) CBC without Differential (11/17/2023 7:24 AM CDT) Hemoglobin 9.5(L) 13.2 - 16.6 g/dL 11/17/2023 [...] CDT Candelaria Rivas D.O. LAB BLOOD ADD-ON [facility] [address] [place] [address], [facility] [place] [address] [place] [phone] * (ABNORMAL) Basic Metabolic Panel (11/17/2023 7:24 AM CDT) Potassium, P 4.3 3.6 - 5.2 mmol/L [...] CDT Candelaria Rivas D.O. LAB BLOOD ADD-ON [facility] [address] [place] [address], [facility] [place] [address] * Glucose, POCT (11/17/2023 6:45 AM CDT) Glucose, POCT, B 107 70 - 140 mg/dL 11/17/2023 6:45 AM CDT MKTO Blood 11/17/2023 6:45 AM CDT 11/17/2023 7:03 AM CDT Generic Rals LAB POCT ORDERABLES- MANUAL [facility] [address] [place] [address] * (ABNORMAL) Hemoglobin (11/16/2023 4:43 PM CDT) Hemoglobin 9.2(L) 13.2 - 16.6 g/dL 11/16/2023 5:13 PM CDT MKTO Blood (Blood, Venous) 11/16/2023 4:43 PM CDT 11/16/2023 5:10 PM CDT Madelyn Cesar D.O. LAB BLOOD ADD-ON Performing Organization Address City/[facility] Co de Phone Number [facility] [address] [place] [address] * (ABNORMAL) Comprehensive Metabolic Panel (11/16/2023 6:25 AM CDT) Potassium, P 4.5 3.6 - 5.2 mmol/L [...] CDT Rashawn Vences M.D. LAB BLOOD ADD-ON [facility] [address] [place] [address], [facility] [place] [address] * (ABNORMAL) CBC with Differential, Blood (11/16/2023 6:25 AM CDT) Hemoglobin 9.4(L) 13.2 - 16.6 g/dL 11/16/2023 [...] M.D. LAB BLOOD ADD-ON Performing Organization Address City/State/[facility] Co de Phone Number [facility] [place] [address], [facility] [place] [address] * Transfuse Red Blood Cells : (11/15/2023 6:35 PM CDT) Madelyn Cesar D.O. BLOOD TRANSFUSION OR DERABLES * Transfuse Red Blood Cells : , 1 Units (11/15/2023 6:35 PM CDT) Madelyn Cesar D.O. BLOOD TRANSFUSION OR DERABLES * (ABNORMAL) Comprehensive Metabolic Panel (11/15/2023 7:31 AM CDT) Pathologist [facility] Potassium, P 4.2 3.6 - 5.2 mmol/L [...] Sylvie Wright M.D. LAB BLO OD ADD-ON [facility] [address] [place] [address], [facility] MKTO [facility] [place] [address] [place] [address] * (ABNORMAL) CBC with Differential, Blood (11/15/2023 [...] Sylvie Wright M.D. LAB BLO OD ADD-ON Performing Organization Address [facility] de Phone Number [facility] [address] [place] [address], [facility] MKTO [facility] [place] [address] [place] [address] * ECG 12 Lead (11/15/2023 6:47 AM CDT) Ventricular Rate ECG/Min 65 BPM MUSE IA Interval 144 ms MUSE QRSD Interval 76 ms MUSE QT Interval 430 ms MUSE QTC Interval 447 ms MUSE P [place] -7 degrees MUSE R [place] 9 degrees MUSE T Wave [place] 19 degrees MUSE 11/15/2023 6:47 AM CDT [...] M.D. ECG ORD ERABLES Performing Organization Address [facility] Co de Phone Number MUSE NA * (ABNORMAL) Microscopic Automated (11/15/2023 [...] LAB URI NE ORDERABLES Performing Organization Address City/State/[facility] Co de Phone Number [facility] [address] [place] [address], [facility] MKTO [facility] [place] [address] * (ABNORMAL) Urinalysis with Microscopic if Indicated [...] to determine due to color interference Specific [place] SEE COMMENT 1.001 - 1.035 11/15/2023 8:03 AM CDT MKTO Comment:Unable to determine due to color interference Urobilinogen SEE COMMENT 0.2 - 1.0 mg/dL 11/15/2023 8:03 AM CDT MKTO Comment:Unable to determine due to color interference Urine (Urine, Midstream) 11/15/2023 6:25 AM CDT 11/15/2023 6:34 AM CDT Sylvie Wright M.D. LAB URI NE ORDERABLES Performing Organization Address [facility] Co de Phone Number [facility] [address] [place] [address], [facility] [place] [address] * Bacterial Culture, Aerobic + Susceptibility, Urine (11/15/2023 6:24 AM CDT) Urine Culture Urogenital microbiota, susceptibilities not performed per laboratory criteria. 11/16/2023 11:36 AM CDT [facility] Urine (Urine, Indwelling Catheter) 11/15/2023 6:24 AM CDT 11/15/2023 9:29 AM CDT Comment:Specimen Source Site : Urine Zachery Tanner APRN C.N.P., M.S. LAB MICROBIOLOGY - GENERAL ORDERABLES Performing Organization Address City/[facility]/ZIP Co de Phone Number 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) Anticoagulant Treatment documented in this encounter Admitting Diagnoses Diagnosis Hematuria Gross documented in this encounter Administered Medications Inactive Administered Medications - up to 3 most recent administrations Medication Order MAR Action Action Date Dose Rate Site acetaminophen tablet 650 mg (TylenoL) 650 mg, oral, Every 4 hours PRN, mild pain or score 1-3 of 10, moderate pain or score 4-6 of 10, headaches, fever, Starting on Tue11/15/23 at 1853 Given 11/16/2023 8:29 PM CDT 650 mg Given 11/15/2023 7:57 PM CDT 650 mg amLODIPine tablet 10 mg (Norvasc) 10 mg, oral, Daily, First dose on Tue11/15/23 at 0900 Given 11/17/2023 8:01 AM CDT 10 mg Given 11/16/2023 9:52 AM CDT 10 mg Given 11/15/2023 9:34 AM CDT 10 mg metoprolol succinate 24 hr tablet 50 mg (Toprol XL) 50 mg, oral, Daily at bedtime, First dose on Tue11/15/23 at 0030, Do NOT crush or chew. Tablet may be split on score if needed. Given 11/16/2023 8:29 PM CDT 50 m g Given 11/15/2023 8:11 PM CDT 50 mg Given 11/15/2023 1:02 AM CDT 50 mg NaCl 0.9% infusion 50 mL/hr, intravenous, Continuous, Starting on Tue11/15/23 at 0045, For 12 hours New Bag 11/15/2023 1:02 AM CDT 50 mL/hr 50 mL/hr rivaroxaban tablet 10 mg (Xarelto) 10 mg, oral, Every morning, First dose on Tue11/16/23 at 1215 Given 11/17/2023 8:01 AM CDT 10 mg Given 11/16/2023 2:14 PM CDT 10 mg rosuvastatin tablet 40 mg (Crestor) 40 mg, oral, Daily at bedtime, First dose on Tue11/15/23 at 0030 Given 11/16/2023 8:29 PM CDT 40 mg Given 11/15/2023 8:11 PM CDT 40 mg Given 11/15/2023 1:01 AM CDT 40 mg solifenacin tablet 5 mg (Vesicare) 5 mg, oral, Daily, First dose on Tue11/15/23 at 0900, mirabegron 50 mg daily was interchanged for solifenacin 5 mg oral daily See tube feeding guidelines for tube feeding administration instructions. Given 11/17/2023 8:01 AM CDT 5 mg Given 11/16/2023 9:52 AM CDT 5 mg Given 11/15/2023 9:34 AM CDT 5 mg tamsulosin 24 hr capsule 0.4 mg (Flomax) 0.4 mg, oral, Daily at bedtime, First dose on Tue11/15/23 at 0030, Swallow whole. Do NOT crush, chew or open capsule. Given 11/16/2023 8:29 PM CDT 0.4 mg Given 11/15/2023 8:11 PM CDT 0.4 mg Given 11/15/2023 1:01 AM CDT 0.4 mg documented in this encounter Active and Recently Administered Medications Times are shown in CDT. Scheduled Medication Order 11/15/2023 11/16/2023 11/17/2023 amLODIPine tablet 10 mg (Norvasc) 10 mg, oral, Daily, First dose on Tue11/15/23 at 0900 0934 (Given - Provider: Solitario Gonzalez, R.N.) 0952 (Given - Provider: Dorothea Lynch RJonahN.) 0801 (Given - Provider: Arik Jolly, R.N.) enzalutamide capsule 120 mg (Xtandi) 120 mg, oral, Every morning, First dose on Tue11/15/23 at 0900, HAZARDOUS - Handle with care. Swallow whole. Do NOT crush, chew or open capsule. 0955 (Not Given - Provider: Solitario Gonzalez R.N. - Reason: Medication not available - Comment: Not available through the Hospital. Patient does not have it with him.) 0956 (Not Given - Provider: Dorothea Lynch R.N. - Reason: Medication not available - Comment: Home med- asked pt family to bring in.) 800 (Not Given - Provider: Arik Jolly, R.N. - Reason: Medication not available) metoprolol succinate 24 hr tablet 50 mg (Toprol XL) 50 mg, oral, Daily at bedtime, First dose on Tue11/15/23 at 0030, Do NOT crush or chew. Tablet may be split on score if needed. 010 (Given - Provider: Nuvia Ocasio R.N.)2010 (Given - Provider: Mariajose Berry R.N.) 2028 (Given - Provider: Nahed Dozier R.N.) rivaroxaban tablet 10 mg (Xarelto) 10 mg, oral, Every morning, First dose on Tue11/16/23 at 1215 1414 (Given - Provider: Dorothea Lynch R.N.) 800 (Given - Provider: Arik Jolly, R.N.) rosuvastatin tablet 40 mg (Crestor) 40 mg, oral, Daily at bedtime, First dose on Tue11/15/23 at 0030 0101 (Given - Provider: Nuvia Ocasio R.N.)2010 (Given - Provider: Mariajose Berry RRitesh.) 2028 (Given - Provider: Nahed Dozier R.N.) solifenacin tablet 5 mg (Vesicare) 5 mg, oral, Daily, First dose on Tue11/15/23 at 0900, mirabegron 50 mg daily was interchanged for solifenacin 5 mg oral daily See tube feeding guidelines for tube feeding administration instructions. 0934 (Given - Provider: Solitario Gonzalez R.N.) 0952 (Given - Provider: Dorothea Lynch R.N.) 800 (Given - Provider: Bety Wu M.S.N., R.N.) tamsulosin 24 hr capsule 0.4 mg (Flomax) 0.4 mg, oral, Daily at bedtime, First dose on Tue11/15/23 at 0030, Swallow whole. Do NOT crush, chew or open capsule. 0101 (Given - Provider: Nuvia Ocasio R.N.)2010 (Given - Provider: Mariajose Berry R.N.) 2028 (Given - Provider: Nahed Dozier R.N.) Continuous Medication Order 11/15/2023 11/16/2023 11/17/2023 NaCl 0.9% infusion () 50 mL/hr, intravenous, Continuous, Starting on Tue11/15/23 at 0045, For 12 hours 0102 (New Bag - Provider: Nuvia Ocasio R.N.)1500 (Stopped - Provider: Solitario Gonzalez R.N.) PRN Medication Order 11/15/2023 11/16/2023 11/17/2023 acetaminophen tablet 650 mg (TylenoL) 650 mg, oral, Every 4 hours PRN, mild pain or score 1-3 of 10, moderate pain or score 4-6 of 10, headaches, fever, Starting on Tue11/15/23 at 1853 1957 (Given - Provider: Solitario Gonzalez R.N.) 2028 (Given - Provider: Nahed Dozier R.N.) documented in this encounter Care Teams Acoustic Sensor Operator Relationship Specialty Start Date End Date Elsewhere, Pcp PCP - General Internal Medicine 08/13/23 documented as of this encounter
--- OUTSIDE RECORDS SUMMARY | 2023-11-18 12:37 | XMS_ITS | Encounter Summary ---
Author Organization [facility] Address [address] [place] [address] Care Team Providers Care Internet Ecommerce Specialist Name Role Phone Elsewhere, Pcp Primary [...] [facility] 11/15/2023 Sex and Gender Information Value Date Recorded Sex Assigned at Not on file Gender Identity Not on file Sexual Orientation Not on file documented as of this encounter Plan of Treatment Upcoming Encounters Date Type Department Care Team (Latest Contact Info) Description 12/07/2023 10:15 AM CDT Procedure visit Department of Urology in [place] [address] [place] [address] Burke Strauss M.D. [address] [place] [phone] Discharge Disposition: Home or Self Care 12/07/2023 10:30 AM CDT Office Visit Department of Urology in [place] [address] [place] [address] Burke Strauss M.D. [address] [place] [phone] Discharge Disposition: Home or Self Care documented as of this encounter Visit Diagnoses Not on filedocumented in this encounter Care Teams Internet Ecommerce Specialist Relationship Specialty Start Date End Date Elsewhere, Pcp PCP - General Internal Medicine 08/13/23 documented as of this encounter
--- OUTSIDE RECORDS SUMMARY | 2023-11-18 12:37 | XMS_ITS | Encounter Summary ---
Author Organization [facility] Address [address] [place] [address] Care Team Providers Care Watch Leader Name Role Phone Elsewhere, Pcp Primary Care Provider Unavailabl e Encounter Details Date Type Department Care Team (Late st Contact Info) Description 09/27/2023 Clinical Communication Department of Urology in [place], [place] [address] [place] [phone] Paula Hernandez M.D. [address] [place] [address] Social History Tobacco Use Types Packs/Day Years Used Date Smoking Tobacco: Never Smokeless Tobacco: Never [facility] Utilities Answer Date Recorded In the past 12 months has [facility] electric, gas, oil, or water [employer] threatened to shut off services in your [...] CDT Procedure visit Department of Urology in [address] [phone] Burke Strauss M.D. [address] [place] [phone] Discharge Disposition: Home or Self Care 12/07/2023 10:30 AM CDT Office Visit Department of Urology in [place], [place] [address] [place] [address] Burke Strauss M.D. [address] [place] [phone] Discharge Disposition: Home or Self Care documented as of this encounter Visit Diagnoses Not on filedocumented in this encounter Care Teams Watch Leader Relationship Specialty Start Date End Date Elsewhere, Pcp PCP - General Internal Medicine 08/13/23 documented as of this encounter
--- OUTSIDE RECORDS SUMMARY | 2023-11-18 12:37 | XMS_ITS | Encounter Summary ---
Author Organization [facility] Address [address] [place] [address] Care Team Providers Care Cage Maker Name Role Phone Elsewhere, Pcp Primary Care Provider Unavailabl e Reason for Visit * Reason Onset Date Comments follow up questions 09/16/2023 Encounter Details Date Type Department Care Team (Latest Contact Info) Description 09/16/2023 Clinical Communication Department of Urology in [place], [place] [address] [place] [address] Provider, Unknown follow up questions Social History Tobacco Use Types Packs/Day Years Used Date Smoking Tobacco: Never Smokeless Tobacco: Never [employer] Utilities Answer Date Recorded In the past 12 months has [facility] [employer], gas, oil, or water [employer] threatened to shut off services in your [...] CDT Procedure visit Department of Urology in [place], [place] [address] [place] [address] Burke Strauss M.D. [facility] [place] [address] Discharge Disposition: Home or Self Care 12/07/2023 10:30 AM CDT Office Visit Department of Urology in [place], [place] [address] [place] [address] Burke Strauss M.D. 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
--- OUTSIDE RECORDS SUMMARY | 2023-11-18 12:37 | XMS_ITS | Encounter Summary ---
Author Organization [facility] Address [address] [place] [phone] Care Team Providers Care Neon Sign Worker Name Role Phone Elsewhere, Pcp Primary Care Provider Unavailabl e Reason for Visit * Reason Comments Urinary Retention * Outpatient (Routine) - Closed Specialty Diagnoses / Procedures Referred By Contaraceli t Referred To Contact Diagnoses Hematuria Procedures URO Urethral cath change (UCC) Paula Hernandez M.D. [address] [place] [phone] [facility] Referral ID Status Reason Start Date Expiration Date Visits Re quested Visits Authorized [id number] Closed 09/15/2023 09/14/2024 1 1 Encounter Details Date Type Department Care Team (Late st Contact Info) Description 10/14/2023 1:00 PM CDT Procedure visit Department of Urology in [place], [place] [address] [place] [phone] Paula Hernandez M.D. [address] [place] [phone] Khadra Miller R.N. [address] [place] [phone] Hematuria Social History Tobacco Use Types Packs/Day [...] CDT Procedure visit Department of Urology in [address] [phone] Burke Strauss M.D. [address] [place] [phone] Discharge Disposition: Home or Self Care 12/07/2023 10:30 AM CDT Office Visit Department of Urology in [address] [phone] Burke Strauss M.D. [address] [place] [phone] Discharge Disposition: Home or Self Care documented as of this encounter Visit Diagnoses Diagnosis Hematuria documented in this encounter Care Teams Neon Sign Worker Relationship Specialty Start Date End Date Elsewhere, Pcp PCP - General Internal Medicine 08/13/23 documented as of this encounter
--- OUTSIDE RECORDS SUMMARY | 2023-11-18 12:37 | XMS_ITS | Encounter Summary ---
Author Organization [facility] Address [address] [place] [address] Care Team Providers Care Accounting Software Specialist Name Role Phone Elsewhere, Pcp Primary Care Provider Unavailabl e Reason for Visit * Reason Comments Catheter Care Plan Encounter Details Date Type Department Care Team (Late st Contact Info) Description 10/14/2023 Documentation Department of Urology in [place], [place] [address] [place] [phone] Paula Hernandez M.D. [address] [place] [phone] Catheter Care Plan Social History Tobacco Use Types Packs/Day Years Used Date Smoking Tobacco: Never Smokeless Tobacco: Never [facility] Utilities Answer Date Recorded In the [...] Care Plan - Catheter Exchange General Information [facility] Patient Name: Kalen Vega Date: 1940 Health Care Provider(s) Medical Provider(s) Cesar Mccollum M.D. Institution: No address on file [place], [place] Urology Provider(s) Chief Urology residents Last seen by Paula Hernandez M.D. Institution: [facility] Treatment Summary Diagnosis Hydronephrosis; hematuria; metastatic prostate cancer; radiation cystitis Treatment Surgery []Yes [x] No Surgery Date(s) Surgical Procedure/Location/Findings Current Treatment Information/Follow-up Care Plan Frequency of Catheter Changes (i.e. every 4 weeks) every 4 weeks Catheter Information Type: Coude red rubber Size:20F Reference #: [id number] Catheter Prescription Expires NA Last seen by [...] CDT Procedure visit Department of Urology in [place] [address] [place] [address] Burke Strauss M.D. [address] [place] [phone] Discharge Disposition: Home or Self Care 12/07/2023 10:30 AM CDT Office Visit Department of Urology in [place] [address] [place] [address] Burke Strauss M.D. [address] [place] [phone] Discharge Disposition: Home or Self Care documented as of this encounter Visit Diagnoses Not on filedocumented in this encounter Care Teams Accounting Software Specialist Relationship Specialty Start Date End Date Elsewhere, Pcp PCP - General Internal Medicine 08/13/23 documented as of this encounter
--- OUTSIDE RECORDS SUMMARY | 2023-11-18 12:37 | XMS_ITS | Encounter Summary ---
Author Organization [facility] Address [address] [place] [address] Care Team Providers Care Punchboard Filling Machine Operator Name Role Phone Elsewhere, Pcp Primary Care Provider Unavailabl e Reason for Referral * Outpatient (Routine) - Authorized Specialty Diagnoses / Procedures Referred By Contac t Referred To Contact Urology Burke Strauss M.D. [address] [place] [phone] [facility] Region Referral ID Status Reason Start Date Expiration Date V isits Requested Visits Authorized [id number] Authorized 11/09/2023 05/10/2025 1 1 * Outpatient (Routine) - Authorized Specialty Diagnoses / Procedures Referred By Contac t Referred To Contact Diagnoses Retention Urinary Chronic Procedures URO Urethral cath change (UCC) Burke Strauss M.D. [address] [place] [phone] [facility] Region Referral ID Status Reason Start Date Expiration Date V isits Requested Visits Authorized [id number] Authorized 11/09/2023 11/08/2024 15 15 Reason for Visit * Reason Comments Consult Discuss catheter thomas nges * Appointment Request (Routine) - Closed Specialty Diagnoses / Procedures Referred By Leyla rosenthal Referred To Contact Urology Referral ID Status Reason Start Date Expiration Date Visits Re quested Visits Authorized [id number] Closed 10/27/2023 10/26/2024 1 1 Encounter Details Date Type Department Care Team (Late st Contact Info) Description 11/09/2023 11:00 AM CDT Office Visit Department of Urology in [place], [place] [address] [place] [phone] Burke Strauss M.D. [address] [place] [phone] Primary Malignant Neoplasm Of Prostate (HCC) (Primary Dx); Retention Urinary Chronic; Hematuria Gross Discharge Disposition: Home or Self Care Social History Tobacco Use Types Packs/Day Years Used Date Smoking Tobacco: Never Smokeless Tobacco: Never [facility] [employer] Answer Date Recorded In the past 12 months has [facility] electric, gas, oil, or water [employer] threatened to shut off services in your [...] your living situation today? I have a [facility] place to live 09/09/2023 Sex and [...] ILLNESS Patient presents to establish care from [facility]. He has multiple urologic issues [...] the past few days. Original plan from [place] was to exchange his left nephrostomy tube in 3 months, due 12/14/2023. He reports getting good output from the left neph tube without hematuria. 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 He has completed 19 of 45 planned treatments and expects to finish that course in early December. Metastatic prostate cancer is being managed by [facility], Dr. Mireya Tan. Release of [...] an antegrade nephrogram through Interventional Radiology in [place] prior to nephrostomy tube removal. documented in this encounter Plan of Treatment Upcoming Encounters Date Type Department Care Team (Latest Contact Info) Description 12/07/2023 10:15 AM CDT Procedure visit Department of Urology in [address] [phone] Burke Strauss M.D. [address] [place] [phone] Discharge Disposition: Home or Self Care 12/07/2023 10:30 AM CDT Office Visit Department of Urology in [address] [phone] Burke Strauss M.D. [address] [place] [phone] Discharge Disposition: Home or Self Care Scheduled [...] Gross documented in this encounter Care Teams Punchboard Filling Machine Operator Relationship Specialty Start Date End Date Elsewhere, Pcp PCP - General Internal Medicine 08/13/23 documented as of this encounter
--- OUTSIDE RECORDS SUMMARY | 2023-11-18 12:37 | XMS_ITS | Encounter Summary ---
Author Organization [facility] Address [address] [place] [address] Care Team Providers Care Guest Service Manager Name Role Phone Elsewhere, Pcp Primary Care Provider Unavailabl e Encounter Details Date Type Department Care Team (Late st Contact Info) Description 11/09/2023 Clinical Communication Department of Urology in [place], [place] [address] [place] [address] Burke Strauss M.D. [address] [place] [phone] Social History Tobacco Use Types Packs/Day Years [...] CDT Procedure visit Department of Urology in [address] [phone] Burke Strauss M.D. [facility] [place] [phone] Discharge Disposition: Home or Self Care 12/07/2023 10:30 AM CDT Office Visit Department of Urology in [address] [phone] Burke Strauss M.D. [address] [place] [phone] Discharge Disposition: Home or Self Care documented as of this encounter Visit Diagnoses Not on filedocumented in this encounter Care Teams Guest Service Manager Relationship Specialty Start Date End Date Elsewhere, Pcp PCP - General Internal Medicine 08/13/23 documented as of this encounter
--- OUTSIDE RECORDS SUMMARY | 2023-11-18 12:37 | XMS_ITS | Encounter Summary ---
Author Organization [facility] Address [address] [place] [address] Care Team Providers Care Coyote Hunter Name Role Phone Elsewhere, Pcp Primary Care Provider Unavailabl e Encounter Details Date Type Department Care Team (Late st Contact Info) Description 09/21/2023 Clinical Communication Department of Urology in [place], [place] [address] [place] [address] Paula Hernandez M.D. [address] [place] [phone] Social History Tobacco Use Types Packs/Day Years Used Date Smoking Tobacco: Never Smokeless Tobacco: Never [facility] Utilities Answer Date Recorded In the past 12 months has [facility] [employer], gas, oil, or water [employer] threatened to shut off services in your [...] your living situation today? I have a [facility] place to live 09/09/2023 Sex and Gender Information Value Date Recorded Sex Assigned at Not on file Gender Identity Not on file Sexual Orientation Not on file documented as of this encounter Miscellaneous Notes * Telephone Encounter - Paula Hernandez M.D. - 09/21/2023 2:37 PM CDT I called the patient's [place] physician who he saw yesterday, 09/19 in [...] CDT Procedure visit Department of Urology in [place], [place] [address] [place] [address] Burke Strauss M.D. [facility] [place] [address] Discharge Disposition: Home or Self Care 12/07/2023 10:30 AM CDT Office Visit Department of Urology in [place] [address] [place] [address] Burke Strauss M.D. [address] [place] [phone] Discharge Disposition: Home or Self Care documented as of this encounter Visit Diagnoses Not on filedocumented in this encounter Care Teams Coyote Hunter Relationship Specialty Start Date End Date Elsewhere, Pcp PCP - General Internal Medicine 08/13/23 documented as of this encounter
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
--- OUTSIDE RECORDS SUMMARY | 2023-11-18 12:37 | XMS_ITS | Encounter Summary ---
Author Organization [facility] Address [address] [place] [address] Care Team Providers Care Hadoop Administrator Name Role Phone Elsewhere, Pcp Primary Care Provider Unavailabl e Reason for Visit * Reason Onset Date Comments Oncology records request 11/10/2023 Encounter Details Date Type Department Care Team (Latest Contact Info) Description 11/10/2023 Clinical Communication Department of Urology in [place], [place] [address] [place] [phone] Burke Strauss M.D. [address] [place] [phone] Oncology records request Social History Tobacco Use [...] situation today? I have a [facility] place to live 11/15/2023 Sex and Gender Information Value Date Recorded Sex Assigned at Not on file Gender Identity Not on file Sexual Orientation Not on file documented as of this encounter Miscellaneous Notes * Telephone Encounter - Burke Strauss M.D. - 11/16/2023 8:37 AM CDT Records reviewed. Follow up as planned. * Telephone Encounter - Gisela Lloyd R.M.AJonah - 11/10/2023 2:15 PM CDT Release of Information was filled out and faxed to [facility], Dr. Mireya Tan clinic per Dr. Strauss. Will wait for these to come through and notify Dr. Strauss for his review. [facility] documented in this encounter Plan of Treatment Upcoming Encounters Date Type Department Care Team (Latest Contact Info) Description 12/07/2023 10:15 AM CDT Procedure visit Department of Urology in [place], [place] [address] [place] [phone] Burke Staruss M.D. [facility] [place] [phone] Discharge Disposition: Home or Self Care 12/07/2023 10:30 AM CDT Office Visit Department of Urology in [place] [address] [place] [address] Burke Strauss M.D. [address] [place] [phone] Discharge Disposition: Home or Self Care documented as of this encounter Visit Diagnoses Not on filedocumented in this encounter Care Teams Hadoop Administrator Relationship Specialty Start Date End Date Elsewhere, Pcp PCP - General Internal Medicine 08/13/23 documented as of this encounter
--- OUTSIDE RECORDS SUMMARY | 2023-11-18 12:37 | XMS_ITS | Encounter Summary ---
Author Organization [facility] Address [address] [place] [address] Care Team Providers Care Gun Numberer Name Role Phone Elsewhere, Pcp Primary Care Provider Unavailabl e Reason for Referral * Outpatient (Routine) - Authorized Specialty Diagnoses / Procedures Referred By Contac t Referred To Contact Diagnoses Hematuria Gross Procedures DX Chest AP or PA and Lateral 2 Views Paula Hernandez M.D. [address] [place] [phone] [facility] Referral ID Status Reason Start Date Expiration Date V isits Requested Visits Authorized [id number] Authorized 09/16/2023 09/15/2024 1 1 Encounter Details Date Type Department Care Team (Late st Contact Info) Description 09/16/2023 Orders Only Department of Urology in [place], [place] [address] [place] [phone] Paula Hernandez M.D. [address] [place] [phone] Hematuria Gross (Primary Dx) Social History Tobacco [...] CDT Procedure visit Department of Urology in [place], [place] [address] [place] [address] Burke Strauss M.D. [address] [place] [phone] Discharge Disposition: Home or Self Care 12/07/2023 10:30 AM CDT Office Visit Department of Urology in [place], [place] [address] [place] [address] Burke Strauss M.D. [address] [place] [phone] Discharge Disposition: Home or Self Care Scheduled [...] documented as of this encounter Care Teams Gun Numberer Relationship Specialty Start Date End Date Elsewhere, Pcp PCP - General Internal Medicine 08/13/23 documented as of this encounter
--- OUTSIDE RECORDS SUMMARY | 2023-11-18 12:37 | XMS_ITS | Encounter Summary ---
Author Organization [facility] Address [address] [place] [address] Care Team Providers Care Horizontal Boring Mill Set Up Operator Name Role Phone Elsewhere, [...] has e electric, gas, oil, or water [facility] threatened to shut off services in your [...] CDT Procedure visit Department of Urology in [place] [address] [place] [address] Burke Strauss M.D. [address] [place] [phone] Discharge Disposition: Home or Self Care 12/07/2023 10:30 AM CDT Office Visit Department of Urology in [place] [address] [place] [address] Burke Strauss M.D. [address] [place] [phone] Discharge Disposition: Home or Self Care documented [...] on filedocumented in this encounter Care Teams Horizontal Boring Mill Set Up Operator Relationship Specialty Start Date End Date Elsewhere, Pcp PCP - General Internal Medicine 08/13/23 documented as of this encounter
--- OUTSIDE RECORDS SUMMARY | 2023-11-18 12:37 | XMS_ITS | Encounter Summary ---
Author Organization [facility] Address [address] [place] [address] Care Team Providers Care Practice Business Asst Name Role Phone Elsewhere, Pcp Primary Care Provider Unavailabl e Reason for Referral * Outpatient (Routine) - Authorized Specialty Diagnoses / Procedures Referred By Contaraceli t Referred To Contact Urology Diagnoses Hematuria Paula Benton M.D. [address] [place] [phone] [facility] Referral ID Status Reason Start Date Expiration Date V isits Requested Visits Authorized [id number] Authorized 09/15/2023 03/16/2025 1 1 Encounter Details Date Type Department Care Team (Late st Contact Info) Description 09/15/2023 Clinical Communication [facility] [address] [place] [phone] Yasmine Loco Social History Tobacco Use Types [...] [facility] 09/09/2023 Sex and Gender Information Value Date Recorded Sex Assigned at Not on file Gender Identity Not on file Sexual Orientation Not on file documented as of this encounter Plan of Treatment Upcoming Encounters Date Type Department Care Team (Latest Contact Info) Description 12/07/2023 10:15 AM CDT Procedure visit Department of Urology in [place], [place] [address] [place] [phone] Burke Strauss M.D. [facility] [place] [address] Discharge Disposition: Home or Self Care 12/07/2023 10:30 AM CDT Office Visit Department of Urology in [place], [place] [address] [place] [address] Burke Strauss M.D. [address] [place] [phone] Discharge Disposition: Home or Self Care Scheduled [...] as of this encounter Care Teams Practice Business Asst Relationship Specialty Start Date End Date Elsewhere, Pcp PCP - General Internal Medicine 08/13/23 documented as of this encounter
--- OUTSIDE RECORDS SUMMARY | 2023-11-18 12:37 | XMS_ITS | Encounter Summary ---
Author Organization [facility] Address [address] [place] [address] Care Team Providers Care Poultry Processing Supervisor Name Role Phone Elsewhere, Pcp Primary Care Provider Unavailabl e Encounter Details Date Type Department Care Team (Late st Contact Info) Description 10/27/2023 Clinical Communication Department of Urology in [place], [place] [address] [place] [phone] Burke Strauss M.D. [address] [place] [address] Social History Tobacco Use Types Packs/Day Years Used Date Smoking Tobacco: Never Smokeless Tobacco: Never [facility] Utilities Answer Date Recorded In the past 12 months has e electric, gas, oil, or water [employer] threatened to shut off services in [...] 2:15 PM CDT Patient follows urology in [place] but would like to transfer his care to [place] as it is closer to home. It looks like for Hematuria. Is this patient ok to see you? He has a catheter in and will need cath changes going forward. documented in this encounter Plan of Treatment Upcoming Encounters Date Type Department Care Team (Latest Contact Info) Description 12/07/2023 10:15 AM CDT Procedure visit Department of Urology in [place] [address] [place] [address] Burke Strauss M.D. [address] [place] [phone] Discharge Disposition: Home or Self Care 12/07/2023 10:30 AM CDT Office Visit Department of Urology in [place] [address] [place] [address] Burke Strauss M.D. [address] [place] [phone] Discharge Disposition: Home or Self Care documented as of this encounter Visit Diagnoses Not on filedocumented in this encounter Care Teams Poultry Processing Supervisor Relationship Specialty Start Date End Date Elsewhere, Pcp PCP - General Internal Medicine 08/13/23 documented as of this encounter
--- OUTSIDE RECORDS SUMMARY | 2023-11-18 12:38 | XMS_ITS | Encounter Summary ---
Author Organization [facility] Address [address] [place] [address] Care Team Providers Care Court Officer Name Role Phone Elsewhere, Pcp Primary Care Provider Unavailabl e Reason for Referral * Outpatient (Routine) - Closed Specialty Diagnoses / Procedures Referred By Contac t Referred To Contact Diagnoses Hematuria Procedures URO Urethral cath change (UCC) Paula Hernandez M.D. [address] [place] [address] [facility] Referral ID Status Reason Start Date Expiration Date Visits Re quested Visits Authorized [id number] Closed 09/15/2023 09/14/2024 1 1 * Outpatient (Routine) - Authorized Specialty Diagnoses / Procedures Referred By Contac t Referred To Contact Radiology Diagnoses Hematuria Procedures IR Nephrostomy Tube Exchange Left Paula Hernandez M.D. [address] [place] [address] [facility] Referral ID Status Reason Start Date Expiration Date V isits Requested Visits Authorized [id number] Authorized 09/15/2023 09/14/2024 1 1 Reason for Visit * Reason Comments Blood in Urine Encounter Details Date Type Department Care Team (Latest Contact Info) Description 09/09/2023 7:24 AM CDT - 09/15/2023 5:28 PM CDT Hospital Encounter [facility], [facility], Sixth Floor [address] [place] [phone] Gerri Merrill M.D., Ph.D. [address] [place] [phone] Sumit Holbrook M.D. [address] [place] [phone] Hematuria (Primary Dx) Discharge Disposition: Home or Self Care Social History Tobacco Use Types Packs/Day Years Used Date Smoking Tobacco: Never Smokeless Tobacco: Never [facility] Skypeities Answer Date Recorded In the past 12 months has [facility] [employer], gas, oil, or water [employer] threatened to shut off services in [...] a [facility] place to live 09/09/2023 Sex and [...] AM CDT DISCHARGE SUMMARY BRIEF OVERVIEW Hospital: [facility] Discharge Provider: Sumit Holbrook M.D. Primary Team: [facility] Urology Surgery - Chief Helga [...] IP CONSULT TO UROLOGY IP CONSULT TO DIRECTOR OF PROPERTY MANAGEMENT WOUND CARE IP CONSULT TO HYPERBARIC MEDICINE [...] through Care Everywhere. * Sulfamethoxazole/Trimethoprim (By mouth) (Armenian) documented in this encounter [...] mg by mouth every morning. 12/27/2019 11/17/2023 sulfamethoxazole-trime thoprim (BACTRIM DS) 800-160 mg per [...] home. Social Work also sent referral to [facility] and reached out to Service [...] reviewed. GI Function: Last BM Date: 09/11/23, Coulter Stool Chart: Type 5: Soft blobs with [...] 86.8 kg (09/09/2023) Current Weight: 84.5 kg Barton Body Weight (Calculated) : 75.3 kg BMI [...] or 5%. Estimated Needs: Total Calorie Needs: 7198-5139 calories/day Method to Estimate Energy Needs: kcal/kg [...] about patient's nutritional care please contact pager [phone] on weekdays 07:30-16:00 or [phone] on weekends/holidays ([facility]). * Clara Luu APRN, C.N.P., D.N.P. - [...] Intake/Output Last 24 Hours: Date 09/13/23699 - 09/14/2359 09/14/23 07 - 09/15/23 0659 Shift 9989-5248 7405-5196 4306-0204 24 Hour Total 3720-8430 2774-9026 8104-4260 24 Hour Total INTAKE Other 30 60 [...] please contact Vascular and Interventional Radiology DEBBI ([phone]). Anticoagulation: A percutaneous nephrostomy tube is considered [...] care. Please feel free to page the [facility] Inpatient Consult Service at [phone] or the on-call resident at [phone] after 5 PM and on weekends with [...] . Neph tube clear yellow urine. I/O ([id number]): 1.9 L, 1.1 L from the neph [...] questions or concerns. Pager during business hours: [phone] Pager after hours: [phone] * Paula Hernandez M.D. - 09/13/2023 6:05 [...] in place draining clear yellow urine I/O ([id number]): Adequate urine output 2.7 L/248 1 L [...] questions or concerns. Pager during business hours: [phone] Pager after hours: [phone] * Raya Meza Pharm.D., R.Ph., [facility] - 09/12/2023 7:44 AM CDT Images from [...] for medicationuse optimization Stephanie Meza Pharm.D., R.Ph., [facility] Addendum: Heparin will be stopped on 09/13/23 [...] in place draining clear yellow urine I/O (5228-7192): CBI paused for obs Labs: Hb: Hemoglobin [...] Date/Time Bacterial Culture, Aerobic + Susceptibility, Urine [[id number]] (Abnormal) (Susceptibility) Collected: 09/09/23 1128 Lab Status: [...] Susceptible Bacterial Culture, Aerobic + Susceptibility, Urine [[id number]] Collected: 09/03/23 1050 Lab Status: Final result [...] questions or concerns. Pager during business hours: [phone] Pager after hours: [phone] * Js Yang M.D. - 09/11/2023 9:18 [...] Service [place] [phone] during business hours orat [phone] after hours. * Portillo Crespo Pharm.D., R.Ph., [...] Crespo Pharm.D., R.Ph., BCPS * Favio Carmichael Pharm.D., R.Ph., BCPS - 09/10/2023 11:27 AM CDT [...] at 0000 Mayur Collier PharmD, [place], BCPS, [facility] Pager [phone] * Js Yang M.D. - 09/10/2023 9:50 [...] Service [place] [phone] during business hours orat [phone] after hours. * Quin Harrell Pharm.D., R.Ph., [...] Harrell Pharm.D., R.Ph., BCPS * Jazmine Benítez RNarendra, C.W.C.N. - 09/09/2023 1:16 PM CDT [facility] Wound RN consulted to assess Kalen [...] None Unable to Measure N *Wound Bed Open;[place];Yellow;Fibrin/Slough Tissue Exposed None Odor None *Exudate Amount Small Drainage Description Serous;Perez Janiya-wound Assessment Intact;Fragile;[place];Purple;Maceration;White Periwound Treatment Liquid skin protectant (SurePrep) *Primary Dressing Gelling fiber/Hydrofiber (Aquacel Ag) *Primary Dressing Frequency of Change Daily & PRN *Secondary Dressing Foam (Sacral Mepilex Border) *Secondary Dressing Frequency of Change Daily & PRN Lengthy Treatment > 30 minutes > 30 minutes Ongoing management Nursing;Wound/paster hat lining Partial head to toe skin assessment completed [...] PM CDT * Raya Meza Pharm.D., R.Ph., [facility] - 09/09/2023 11:17 AM CDT Images from [...] for medicationuse optimization Stephanie Meza, PharmJonahD., R.Ph., [facility] Admission Medication History Note Adherence issues: No concerns Medication list source: Patient, son, recent filling Hx Medication related information: Per pt, he takes amlodipine, mirabegron daily in the afternoon, around 1 to 2 pm-tucker, for no specific reasons Prior to Admission Medications Med List Status: Pharmacy Complete Set By: Raya Meza, Pharm.D., R.Ph., BCPS at 09/09/2023 11:16 AM Taking? [...] follow Paula Hernandez M.D. Urology PGY-2 Pager #[phone] Please page Chief Urology at [phone] from 7 AM - 5 PM or at [phone] after hours with any questions/concerns. documented in [...] reviewed. GI Function: Last BM Date: 09/11/23, Coulter Stool Chart: Type 5: Soft blobs with [...] 86.8 kg (09/09/2023) Current Weight: 84.5 kg Barton Body Weight (Calculated) : 75.3 kg BMI (Calculated): 26 kg/m?? Net IO Since Admission: -,250.61 mL [09/14/23 1403] Weight history: Wt Readings [...] or 5%. Estimated Needs: Total Calorie Needs: 6549-5528 calories/day Method to Estimate Energy Needs: kcal/kg [...] about patient's nutritional care please contact pager [phone] on weekdays 07:30-16:00 or [phone] on weekends/holidays ([facility]). * Clara Luu SAMPLE WASHER, C.N.P., D.N.P. - 09/12/2023 11:59 AM CDTAssociated [...] admitted for CBI. He was transferred to [facility] after difficultywith irrigating his Jon and CT [...] 08/31/2023 Procedure: CYSTOSCOPY EVACUATION CLOTS; Surgeon: Mayur Alvraez M.D.; Location: RST ROMB OR CYSTOSCOPY FLEXIBLE [...] and recommendations. Please feel free to page [phone] [phone] after 5 PM and on weekends with additional questions. VIR will continue to follow * Alessandra Aguero D.O. - 09/09/2023 5:26 PM CDTAssociated Order(s): IP CONSULT TO VASCULAR MEDICINE VASCULAR MEDICINE CONSULT NOTE Requesting Physician: Gerri Merrill M.D.,* SUBJECTIVE REASON FOR CONSULT: assistance with AC management, patient on plavix and eliquis admitted with refractory hematuria requing CBI. Recommend heparin drip? thanks [facility] [id number] HISTORY OF PRESENT ILLNESS Mr. Vega is [...] stents placed in total (2016, no prior [place], completed after positive stress test) Recommended for [...] for radiation proctitis SOCIAL HISTORY Lives in [place], [place] OBJECTIVE AVSS General: Lying in bed, [...] with Dr. Victoria, the chief urology resident construction area manager. Please page chief Urology Service [place] [phone] [place] [phone] after hours. Paula Hernandez M.D. 09/09/23 9:10 [...] of Shift Summary: Pt DC'd to [facility] with family. Patient educated [...] further inpatient management. Final Diagnoses: as of 09/09/23925 Hematuria Gerri Merrill M.D., Ph.D. 09/11/23 0717 [...] Urology consulted after discussion with the catheter anaesthetic technician who advised that for this patient they are required to get approval from Urologyprior to placing catheter. ED Course as of 09/09/23 0958 TueSeptember 09, 2023 0822 Hemoglobin(!): 8.9 Down from 9.6 one-week ago 0822 Leukocytes(!): 14.5 New leukocytosis with neutrophilia 0822 INR: 1.1 0823 Discussed with the catheter anaesthetic technician. Bladder scan showed 125 mL. There [...] status post cystoscopy clot evacuation 08/30, discharge 05/27. Had planned outpatient follow up with hyperbaric [...] CDT Procedure visit Department of Urology in [address] [phone] Burke Strauss M.D. [address] [place] [address] Discharge Disposition: Home or Self Care 12/07/2023 10:30 AM CDT Office Visit Department of Urology in [place], [place] [address] [place] [address] Burke Strauss M.D. [facility] [place] [address] Discharge Disposition: Home or Self Care Pending [...] Organization Address City/[facility]/ZIP Co de Phone Number [facility] [address] [place] [address] * Heparin Anti-Xa Assay (09/14/2023 3:19 AM [...] Sumit Holbrook M.D. LAB BLOOD NON ADD-ON [facility] [address] [place], [place] [phone] [place] [address] [facility] 200 [place] [address] * (ABNORMAL) CBC without Differential (09/14/2023 3:19 [...] CDT Paula Hernandez M.D. LAB BLOOD ADD-ON [place] [address] [place] [address], [facility] 200 [place] [address] * IR Nephrostomy Tube Placement Left (09/13/2023 2:20 PM CDT) Anatomical Region Laterality Modality Genito Urinary, Vascular Int erventional RST LOS, Vascular Interventional ARZ LOS, Vascular Interventional FLA LOS Left X-Ray Angiography Impressions 09/13/2023 2:33 PM CDT Left 10 [place] percutaneous nephrostomy tube placement. EP Narrative 09/13/2023 [...] tract was further dilated and a 10 [place] nephrostomy tube was placed with loop formed [...] sedation timewas: 9 minutes. IMPRESSION: Left 10 [place] percutaneous nephrostomy tube placement. EP Latisha Whitehead M.D. IMG IR PROCEDURE S * Fungal Culture, Routine (09/13/2023 2:17 PM CDT) Fungal Culture, Routine No growth after 24 days of incubation. 10/08/2023 1:02 AM CDT DTL Fluid (Kidney, Left) 09/13/2023 2:17 PM CDT 09/13/2023 3:56 PM CDT Comment:Specimen Source Site : Fluid Latisha Whitehead M.D. LAB MICROBIOLOGY - GENERAL ORDERABLES [facility] [address] [place] [address], [place] [facility] [address] [place] [address] * Bacterial Culture, Anaerobic + Susceptibility (09/13/2023 2:17 PM CDT) Bacterial Culture, Anaerobic + Susc No growth after 14 days of incubation. 09/27/2023 8:04 AM CDT DTL Fluid (Kidney, Left) 09/13/2023 2:17 PM CDT 09/13/2023 3:56 PM CDT Comment:Specimen Source Site : Fluid Latisha Whitehead M.D. LAB MICROBIOLOGY - GENERAL ORDERABLES Performing Organization Address City/[facility]/ZIP Co de Phone Number [facility] [address] [place] [address], [facility] [address] [place] [address] * Gram Stain (09/13/2023 2:17 PM CDT) Gram Stain No organisms seen. White blood cells, Rare 09/13/2023 9:02 PM CDT DT Fluid (Kidney, Left) 09/13/2023 2:17 PM CDT 09/13/2023 3:56 PM CDT Comment:Specimen Source Site : Fluid Latisha Whitehead M.D. LAB MICROBIOLOGY - GENERAL ORDERABLES Performing Organization Address City/[facility]/ZIP Co de Phone Number [facility] [address] [place] [address], [facility] [address] [place] [address] * Bacterial Culture, Aerobic + Susceptibility (09/13/2023 2:17 PM CDT) Pathologist [facility] Bacterial Culture, Aerobic + Susc No growth after 5 days of incubation. 09/18/2023 12:35 PM CDT DT Fluid (Kidney, Left) 09/13/2023 2:17 PM CDT 09/13/2023 3:56 PM CDT Comment:Specimen Source Site : Fluid Latisha Whitehead M.D. LAB MICROBIOLOGY - GENERAL ORDERABLES [facility] [address] [place] [address], [facility] [address] [place] [address] * (ABNORMAL) CBC without Differential (09/13/2023 5:57 [...] CDT Ko Victoria M.D. LAB BLOOD ADD-ON [facility] [address] [place] [address], [facility] [address] [place] [address] * Heparin Anti-Xa Assay (09/13/2023 5:56 AM CDT) Pathologist [facility] Heparin Anti-Xa, P 0.10 IU/mL 2023 7:14 [...] Organization Address City/[facility] Co de Phone Number [facility] [address] [place] [address], [facility] [address] [place] [address] * APTT (Activated Partial Thromboplastin Time) (09/13/2023 5:56 AM CDT) Pathologist [facility] Activated Partial Thrombopl Time, P 35 25 - 37 sec 09/13/2023 7:14 AM CDT DTL Blood (Blood, Venous) 09/13/2023 5:56 AM CDT 09/13/2023 6:53 AM CDT Sumit Holbrook M.D. LAB BLOOD ADD-ON Performing Organization Address [facility] Co de Phone Number [facility] [address] [place] [address], [facility] [address] [place] [address] * (ABNORMAL) Basic Metabolic Panel (09/13/2023 5:56 AM CDT) Pathologist [facility] Potassium, [...] CDT Paula Hernandez M.D. LAB BLOOD ADD-ON [facility] [address] [place] [address], [facility] [address] [place] [address] * NM Kidney DMSA (09/12/2023 12:21 PM [...] reduced radiotracer uptake asdescribed. Js Yang M.D. [facility] PROCEDURES * Transfuse Red Blood Cells [...] Organization Address City/[facility] Co de Phone Number [facility] [address] [place] [address] * (ABNORMAL) APTT (Activated Partial Thromboplastin Time) (09/12/2023 3:42 AM CDT) [facility] Activated Partial Thrombopl Time, P 49(H) 25 - 37 sec 09/12/2023 4:35 AM CDT DTL Blood (Blood, Venous) 09/12/2023 3:42 AM CDT 09/12/2023 4:00 AM CDT Gerri Merrill M.D., Ph.D. LAB BLOOD A DD-ON Performing Organization Address City/[facility] Co de Phone Number [facility] [address] [facility] [address] [place] [address] * (ABNORMAL) Basic Metabolic Panel (09/11/2023 8:23 [...] CDT Js Yang M.D. LAB BLOOD ADD-ON [facility] [address] [place] [address], [facility] [address] [place] [address] * (ABNORMAL) CBC without Differential (09/11/2023 8:23 [...] Organization Address City/[facility]/ZIP Co de Phone Number [facility] [address] [facility] [address] [place] [address] * (ABNORMAL) APTT (Activated Partial Thromboplastin Time) (09/10/2023 11:42 PM CDT) [facility] Activated Partial Thrombopl Time, P 47(H) 25 - 37 sec 09/11/2023 2:05 AM CDT DTL Blood (Blood, Venous) 09/10/2023 11:42 PM CDT 09/11/2023 2:05 AM CDT Gerri Merrill M.D., Ph.D. LAB BLOOD A DD-ON Performing Organization Address City/[facility]/ZIP Co de Phone Number [facility] [address] [facility] [address] [place] [address] * US Urinary Bladder (09/10/2023 8:41 PM [...] Thromboplastin Time) (09/10/2023 6:09 PM CDT) Pathologist [facility] Activated Partial Thrombopl Time, P 46(H) 25 - 37 sec 09/10/2023 7:47 PM CDT DTL Blood (Blood, Venous) 09/10/2023 6:09 PM CDT 09/10/2023 6:25 PM CDT Gerri Merrill M.D., Ph.D. LAB BLOOD A DD-ON [facility] [address] [place] [address], [facility] [address] [place] [address] * (ABNORMAL) APTT (Activated Partial Thromboplastin Time) (09/10/2023 10:11 AM CDT) Pathologist [facility] Activated Partial Thrombopl Time, P 63(H) 25 - 37 sec 09/10/2023 10:57 AM CDT DTL Blood (Blood, Venous) 09/10/2023 10:11 AM CDT 09/10/2023 10:40 AM CDT Gerri Merrill M.D., Ph.D. LAB BLOOD A DD-ON Performing Organization Address [facility] Co de Phone Number [facility] [address] DTL [facility] [address] [place] [address] * (ABNORMAL) CBC without Differential (09/10/2023 3:27 [...] Organization Address City/[facility]/ZIP Co de Phone Number [facility] [address] [place], [place] [address] DTL [facility] [address] [place] [address] * (ABNORMAL) APTT (Activated Partial Thromboplastin Time) (09/10/2023 12:06 AM CDT) [facility] Activated Partial Thrombopl Time, P 57(H) 25 - 37 sec 09/10/2023 1:05 AM CDT DTL Blood (Blood, Venous) 09/10/2023 12:06 AM CDT 09/10/2023 12:33 AM CDT Gerri Merrill M.D., Ph.D. LAB BLOOD A DD-ON Performing Organization Address City/[facility]/ZIP Co de Phone Number [facility] [address] [facility] [address] [place] [address] * APTT (Activated Partial Thromboplastin Time) (09/09/2023 5:08 PM CDT) [facility] Activated Partial Thrombopl Time, P 31 25 - 37 sec 09/09/2023 5:24 PM CDT STMA Blood (Blood, Venous) 09/09/2023 5:08 PM CDT 09/09/2023 5:12 PM CDT Ko Victoria M.D. LAB BLOOD ADD-ON [facility] [address] [place] [address] * (ABNORMAL) Dipstick, Urine (09/09/2023 11:28 AM CDT) [facility] Hemoglobin, QL, U Large(A) Negative 09/09/2023 [...] Jeffery Church M.D. LAB URINE ORDERA BLES [facility] [address] [place] [address], [facility] [address] [place] [address] * pH, Random, Urine (09/09/2023 11:28 AM CDT) pH, Random, U 6.3 4.5 - 8.0 09/09/2023 12:19 PM CDT DT Urine 09/09/2023 11:2 8 AM CDT 09/09/2023 11:58 AM CDT Jeffery Church M.D. LAB URINE ORDERA BLES Performing Organization Address City/[facility]/ZIP Co de Phone Number [facility] [address] [place] [address], [facility] [address] [place] [address] * Osmolality, Urine (09/09/2023 11:28 AM CDT) Osmolality, U 380 150 - 1150 mOsm/kg 09/09/2023 12:19 PM CDT DTL Urine 09/09/2023 11:2 8 AM CDT 09/09/2023 11:58 AM CDT Jeffery Church M.D. LAB URINE ORDERA BLES [facility] [address] [place] [address], [facility] [address] [place] [address] * (ABNORMAL) Microscopic Manual (09/09/2023 11:28 AM [...] Organization Address City/[facility]/ZIP Co de Phone Number [facility] [address] [facility] [address] [place] [address] * (ABNORMAL) Gram Stain, Urine (09/09/2023 11:28 AM CDT) Source Urine, Urine, Straight Catheter 09/09/2023 11:58 AM CDT DTL Gram Stain, U Positive(A) Negative 09/09/2023 12:16 PM CDT DTL Comment: Few Gram-negative bacilli ? Yeast Urine 09/09/2023 11:2 8 AM CDT 09/09/2023 11:58 AM CDT Jeffery Church M.D. LAB URINE ORDERA BLEBryon Performing Organization Address City/[facility]/ZIP Co de Phone Number [facility] [address] [place] [address], [facility] DTL [facility] [address] [place] [address] * (ABNORMAL) Bacterial Culture, Aerobic + Susceptibility, Urine (09/09/2023 11:28 AM CDT) [facility] Urine Culture ENTEROBACTER CLOACAE COMPLEX >100,000 [...] MICROBIOLOGY - GENERAL ORDERABLES Performing Organization Address [facility] Co de Phone Number [facility] [address] [place] [address], [facility] [address] [place] [address] * (ABNORMAL) Urinalysis, with Microscopic: Urine, Straight [...] 09/09/2023 1:02 PM CDT DTL Predicted Range 2480-85711 mg/24 h 09/09/2023 1:02 PM CDT DTL Comment Micro done on <2.5 mL 09/09/2023 12:27 PM CDT DTL Urine (Urine, Straight Catheter) 09/09/2023 11:28 AM CDT 09/09/2023 11:58 AM CDT Jeffery Church M.D. LAB URINE ORDERA BLES Performing Organization Address [facility]/ZIP Co de Phone Number [facility] [address] [place] [address], [facility] [address] [place] [address] * US Kidneys Bilateral with Bladder (09/09/2023 [...] Time (PT) (09/09/2023 8:04 AM CDT) Pathologist [facility] Prothrombin Time, P 12.5 9.4 - 12.5 sec 09/09/2023 8:14 AM CDT STMA INR 1.1 0.9 - 1.1 09/09/2023 8:14 AM CDT STMA Comment: ----ADDITIONAL INFORMATION---- Standard intensity warfarin therapeutic range: 2.0 to 3.0 ?? High intensity warfarin therapeutic range: 2.5 to 3.5 Blood (Blood, Venous) 09/09/2023 8:04 AM CDT 09/09/2023 8:08 AM CDT Jeffery Church M.D. [place] [address], [place] [address] * (ABNORMAL) CBC with Differential, Blood (09/09/2023 8:04 AM CDT) [facility] Hemoglobin 8.9(L) 13.2 - 16.6 g/dL [...] [facility] Co de Phone Number [facility] [address] [place] [address], [facility] STMA [facility] [address] [place] [address] * (ABNORMAL) Basic Metabolic Panel (09/09/2023 8:04 [...] Organization Address City/[facility]/ZIP Co de Phone Number [facility] [address] [place] [address], [facility] STMA [facility] 200 [place] [address] * Type and Screen (with Reflex Antibody ID) (09/09/2023 8:03 AM CDT) ABORh O Pos Not applicable 09/09/2023 8:47 AM CDT STRM Antibody Screen Negative Negative 09/09/2023 9:02 AM CDT STRM Type & Screen Expiration 09/12/2023 23:59 09/09/2023 8:47 AM CDT STRM Testing Location Ava DEFAULT 09/09/2023 8:10 AM CDT STRM Blood (Blood, Venous) 09/09/2023 8:03 AM CDT 09/09/2023 8:10 AM CDT Jeffery Church M.D. LAB BLOOD BANK T EST ORDERABLES Performing Organization Address [facility] [facility] de Phone Number [facility] [address] [place] [address], [facility] [address] [place] [address] documented in this encounter Visit Diagnoses Diagnosis [...] aPTT 6 hours after heparin resumed, aPTT: 91-130: No loading dose; Stop infusion for 2 [...] Brittanie Lewis R.N.) 0904 (Given - Provider: Britatnie Lewis R.N.) metoprolol succinate 24 hr tablet [...] aPTT 6 hours after heparin resumed, aPTT: 91-130: No loading dose; Stop infusion for 2 [...] Chavez RRitesh.)1409 (Given - Provider: Lars Chavez RJonahN.)1412 (Given - Provider: Lars Chavez RRitesh.) heparin (porcine) 1,000 unit/mL injection 2,600 Units [...] documented as of this encounter Care Teams Court Officer Relationship Specialty Start Date End Date Elsewhere, Pcp PCP - General Internal Medicine 08/13/23 documented as of this encounter
--- OUTSIDE RECORDS SUMMARY | 2023-11-18 12:38 | XMS_ITS | Encounter Summary ---
Author Organization [facility] Address [address] [place] [address] Care Team Providers Care Solid Plasterer Name Role Phone Elsewhere, Pcp Primary Care Provider Unavailabl e Encounter Details Date Type Department Care Team (Late st Contact Info) Description 09/09/2023 Documentation Department of Urology in [place], [place] [address] [place] [phone] Ko Victoria M.D. [address] [place] [address] Social History Tobacco Use Types Packs/Day Years Used Date Smoking Tobacco: Never Smokeless Tobacco: Never [facility] Utilities Answer Date Recorded In the past 12 months has [facility] electric, gas, oil, or water [employer] threatened to shut off services in your [...] your living situation today? I have a [facility] place to live 09/09/2023 Sex and [...] CDT Procedure visit Department of Urology in [place] [address] [place] [address] Burke Strauss M.D. [address] [place] [phone] Discharge Disposition: Home or Self Care 12/07/2023 10:30 AM CDT Office Visit Department of Urology in [address] [address] Burke Strauss M.D. [address] [place] [phone] Discharge Disposition: Home or Self Care documented as of this encounter Visit Diagnoses Not on filedocumented in this encounter Care Teams Solid Plasterer Relationship Specialty Start Date End Date Elsewhere, Pcp PCP - General Internal Medicine 08/13/23 documented as of this encounter
--- OUTSIDE RECORDS SUMMARY | 2023-11-18 12:38 | XMS_ITS | Encounter Summary ---
Author Organization [facility] Address [address] [place] [address] Care Team Providers Care Weight Loss Counselor Name Role Phone Elsewhere, Pcp Primary Care Provider Unavailabl e Encounter Details Date Type Department Care Team (Late st Contact Info) Description 09/01/2023 10:05 AM CDT Ancillary Procedure Department of Nursing Social History Tobacco Use Types Packs/Day Years Used Date Smoking Tobacco: Never Smokeless Tobacco: Never [facility] Utilities Answer Date Recorded In the past 12 months has e electric, gas, oil, or water [employer] threatened to shut off services in [...] CDT Procedure visit Department of Urology in [address] [address] Burke Strauss M.D. [address] [place] [phone] Discharge Disposition: Home or Self Care 12/07/2023 10:30 AM CDT Office Visit Department of Urology in [place] [address] [place] [address] Burke Strauss M.D. [address] [place] [phone] Discharge Disposition: Home or Self Care documented [...] on filedocumented in this encounter Care Teams Weight Loss Counselor Relationship Specialty Start Date End Date Elsewhere, Pcp PCP - General Internal Medicine 08/13/23 documented as of this encounter
--- OUTSIDE RECORDS SUMMARY | 2023-11-18 12:38 | XMS_ITS | Encounter Summary ---
Author Organization [facility] Address [address] [place] [address] Care Team Providers Care Academy Education Director Name Role Phone Elsewhere, Pcp Primary [...] has e electric, gas, oil, or water [employer] threatened to shut off services in your [...] your living situation today? I have a [facility] place to live 09/09/2023 Sex and Gender Information Value Date Recorded Sex Assigned at Not on file Gender Identity Not on file Sexual Orientation Not on file documented as of this encounter Plan of Treatment Upcoming Encounters Date Type Department Care Team (Latest Contact Info) Description 12/07/2023 10:15 AM CDT Procedure visit Department of Urology in [address] [phone] Burke Strauss M.D. [address] [place] [phone] Discharge Disposition: Home or Self Care 12/07/2023 10:30 AM CDT Office Visit Department of Urology in [place] [address] [place] [address] Burke Strauss M.D. [address] [place] [phone] Discharge Disposition: Home or Self Care documented [...] on filedocumented in this encounter Care Teams Academy Education Director Relationship Specialty Start Date End Date Elsewhere, Pcp PCP - General Internal Medicine 08/13/23 documented as of this encounter
--- OUTSIDE RECORDS SUMMARY | 2023-11-18 12:38 | XMS_ITS | Encounter Summary ---
Author Organization [facility] Address [address] [place] [address] Care Team Providers Care Skating Rink Manager Name Role Phone Elsewhere, Pcp Primary Care Provider Unavailabl e Encounter Details Date Type Department Care Team (Late st Contact Info) Description 09/06/2023 Clinical Communication [facility] [address] [place] [address] Yasmine Loco Social History Tobacco Use Types Packs/Day Years Used Date Smoking Tobacco: Never Smokeless Tobacco: Never C Utilities Answer Date Recorded In the past 12 months has [facility] [employer], gas, oil, or water [employer] threatened to shut off services in your [...] your living situation today? I have a [facility] place to live 09/09/2023 Sex and Gender Information Value Date Recorded Sex Assigned at Not on file Gender Identity Not on file Sexual Orientation Not on file documented as of this encounter Plan of Treatment Upcoming Encounters Date Type Department Care Team (Latest Contact Info) Description 12/07/2023 10:15 AM CDT Procedure visit Department of Urology in [place] [address] [place] [address] Burke Strauss M.D. [facility] [place] [address] Discharge Disposition: Home or Self Care 12/07/2023 10:30 AM CDT Office Visit Department of Urology in [place] [address] [place] [address] Burke Strauss M.D. [address] [place] [phone] Discharge Disposition: Home or Self Care documented as of this encounter Visit Diagnoses Diagnosis Hematuria Gross- Primary documented in this encounter Care Teams Skating Rink Manager Relationship Specialty Start Date End Date Elsewhere, Pcp PCP - General Internal Medicine 08/13/23 documented as of this encounter
--- OUTSIDE RECORDS SUMMARY | 2023-11-18 12:38 | XMS_ITS | Encounter Summary ---
Author Organization [facility] Address [address] [place] [address] Care Team Providers Care Rod Placer Name Role Phone Elsewhere, Pcp Primary Care Provider Unavailabl e Encounter Details Date Type Department Care Team (Late st Contact Info) Description 09/06/2023 Orders Only Section of Hyperbaric Medicine in [place], [place] [address] [place] [address] Kira Ferraro, ARUN, C.N.P., M.S.N. [address] [place] [address] Social History Tobacco Use Types Packs/Day Years [...] CDT Procedure visit Department of Urology in [address] [phone] Burke Strauss M.D. [address] [place] [phone] Discharge Disposition: Home or Self Care 12/07/2023 10:30 AM CDT Office Visit Department of Urology in [place] [address] [place] [phone] Burke Strauss M.D. 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
--- OUTSIDE RECORDS SUMMARY | 2023-11-18 12:38 | XMS_ITS | Encounter Summary ---
Author Organization [facility] Address [address] [place] [address] Care Team Providers Care Forwarder Operator Name Role Phone Elsewhere, Pcp Primary Care Provider Unavailabl e Reason for Visit * Reason Comments Urinary Problem Rapid Heart Rate Encounter Details Date Type Department Care Team (Latest Contact Info) Description 08/30/2023 7:35 PM CDT - 09/05/2023 4:09 PM CDT Hospital Encounter [facility], [facility], [facility], First Floor [address] [place] [address] Kirstin Hughes M.D. [address] [place] [phone] Mayur Alvarez M.D. [address] [place] [phone] Hematuria (Primary Dx); Tachycardia; Hematuria Gross Discharge Disposition: Home-Health Care Svc Social History Tobacco Use Types Packs/Day Years Used Date Smoking Tobacco: Never Smokeless Tobacco: Never [facility] Utilities Answer Date Recorded In the [...] [facility] 09/05/2023 Sex and [...] PM CDT DISCHARGE SUMMARY BRIEF OVERVIEW Hospital: [facility] Discharge Provider: Mayur Alvarez M.D. Primary Team: [facility] Urology [...] CYSTOGRAM Mayur Alvarez M.D.White, Lindsay A, M.D. [facility] ROMB OR DISCHARGE DISPOSITION Home-Health Care [facility] [6] ACTIVE ISSUES REQUIRING FOLLOW UP OUTPATIENT [...] CONSULT TO CARE MANAGEMENT IP CONSULT TO APPLICATION TECHNICAL DESIGNER WOUND CARE IP CONSULT TO HYPERBARIC MEDICINE CONDITION AT DISCHARGE improved Discharge instructions were provided to the patient and caregiver(s). documented in this encounter Discharge Instructions * Patient Instructions* Carmen Louis, R.N. - 08/31/2023 9:44 AM CDT The Senior LinkAge Line?? is a service of the [place] Board on Aging in partnership with [place] Agencies on Aging. It is a free service of the [facility] that connects older [place]ans and their families with the help they need. Call the Senior LinkAge Line?? at: 746.318.8718 M-F, 8am-4:30pm to connect with specialists that are available to assist you with your specific needsor check out their website at https://www.[employer].SuppreMol * Attachments The following attachments cannot be sent through Care Everywhere. * Cefdinir (By mouth) (Puerto Rican) documented in this encounter Medications at Time of Discharge Medication Sig Dispensed Refills Start Date End Date amLODIPine (NORVASC) 10 mg tablet Take 10 mg by mouth daily. Takes in the afternoon, 1 to 2 pm 01/11/2020 coenzyme Q10 (CO Q-10) 200 mg capsule [...] the second dose and call 911 11/02/2019 clopidogreL (PLAVIX) 75 mg tablet Take 75 mg by mouth every morning. 12/27/2019 11/17/2023 bacitracin 500 unit/gram ointment Apply 1 Application [...] questions or concerns. Pager during business hours: [phone] Pager after hours: [phone] * Jeffery Valdez M.D. - 09/04/2023 10:34 [...] questions or concerns. Pager during business hours: [phone] Pager after hours: [phone] * Jeffery Valdez M.D. - 09/03/2023 4:10 [...] [facility]: Diet: Regular Activity: Ad kong [...] questions or concerns. Pager during business hours: [phone] Pager after hours: [phone] * Paula Hernandez M.D. - 09/02/2023 6:25 [...] questions or concerns. Pager during business hours: [phone] Pager after hours: [phone] * Michelle Willams R.N., C.W.C.N. - 09/01/2023 11:43 AM CDT [facility] Wound RN consulted to [...] Secondary Dressing Status Clean;Dry;Intact Changed by Wound burnt lime drawer Ongoing management Nursing;Wound/mortgage professional Urine Assessment Urine Color Colorless Hematuria Scale [place] Urine Appearance Clear;Sediment Head to toe skin [...] update the patient. Son stated that a Bundle Tier visited the home and will be trying to assist both and patient with cares/coordination. OBJECTIVE Patient is [facility] room 111. Referrals were sent to the following agencies: Home Medical Care - Admitted Since 08/30/2023 Service Provider Request Status Selected Services Address Phone Fax Patient Preferred [facility] - [place] Pending - Request Sent N/A [address] [facility] [phone] -- [facility] - Request Sent N/A [address] [facility] [address] [phone] -- Home Health Care Pending - Request Sent N/A [address] [facility] [address] [address] -- [facility] Pending - Request Sent N/A [address] [facility] [address] [phone] -- [facility] Pending - Request Sent N/A [address] [facility] [phone] -- [facility] Pending - Request Sent N/A [address] [facility] [address] [address] [phone] -- [facility] Home Health Declined Facility Full N/A [address] [facility] [phone] -- ASSESSMENT / PLAN ASSESSMENT Retail Sales Professional attempted to contact patient on room phone but was unable to get through. Case Manageras able to reach his son who will update that patient that the preferred home health agency was unable to accept and that referrals would be sent to other home health agencies. Requested services arenursing for wound care and catheter and PT/OT. PLAN Retail Sales Professional will follow up with referrals. Case Manger [...] questions or concerns. Pager during business hours: [phone] Pager after hours: [phone] * Paula Hernandez M.D. - 08/31/2023 10:45 [...] questions or concerns. Pager during business hours: [phone] Pager after hours: [phone] Associated attestation - Mayur Alvarez M.D. - 08/31/2023 12:14 PM CDT I agree with the Urology Chief Service plan for palliative cystoscopy under anesthesia, clot evacuation, proceed as indicated. We will plan for judicious irrigation given his recent bladder surgery and we will perform a cystogram at the end of the procedure. * Demarco Salazar, Mireille.D., R.Ph., [facility] - 08/31/2023 7:19 AM CDT Images [...] discontinuation of antibiotics. Pedrito Salazar Pharm.D., R.Ph., [facility] Admission Medication History Note Adherence issues: [...] Complete Set By: Demarco Salazar Pharm.D., R.Ph., [facility] at 08/31/2023 7:22 AM Taking? Last [...] an 83 y.o. male transferred to the [facility] ED for further management [...] for CBI. He was then transferred to [facility] on 08/12; a CT [...] was initiated on CBI and transferred to [facility] for further management. On [...] for radiation proctitis SOCIAL HISTORY Lives in [place], [place] OBJECTIVE Vitals Blood pressure 134/84, pulse [...] & Screen Expiration 09/02/2023 23:59 Testing Location [place] Imagin08/30/23 EXAM: US URINARY BLADDER COMPARISON: CT [...] hematuria, clot obstruction and was transferred to [facility] for further evaluation and management. Urinary bladder ultrasound showing 5 cm clot burden; catheter draining on fast-rate CBI after multiple rounds of hand irrigation. Plan - Continue CBI - Q2h hr hand irrigations - NPO overnight pending am re-evaluation - Hold Plavix, Xarelto for now The above was discussed with Drs. Venegas and Lefty, the chief urology residents exceptional student education aide. Please page chief Urology [place] [phone] [place] [phone] afterhours. documented in this encounter Procedure Notes [...] on androgen deprivation therapy. 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 [...] 11 Referral Reason: Discharge Planning Primary Language: [place] [facility] Financial Analyst Services Used: No Person(s) present during interview: [...] Communication: Can write, Talks, Understands speaking, Understands [place]ican, Reads Shopping: Needs assistance Medication Management: Independent Housekeeping: Needs assistance Meal Prep: Independent Assistive Devices: Walker - front wheeled, Eyeglasses, Hearing aid(s) Agency Name: [facility] Provided: Mcfp/PT/OT Transportation: Support from family Baseline Services/Resources Primary care clinic and provider: ELSEWHERE, PCP Additional Resources: N/A Anticipated Needs Functional Status: Housekeeping, Shopping, Transportation use (drive car, use taxi/bus), Mobility, Transfer to/from bed, chair, etc., Bathing Assistive Devices: Eyeglasses, Hearing aid(s), Walker - front wheeled Services/Resources: Home health Agency Name: [facility] Provided: Mcfp/PT/OT Anticipated Modifications to the Patient's Home: None Transportation Needs: Support from family Does the patient need discharge transport arranged?: No Anticipated Discharge Destination: Home-Health Care [facility] ASSESSMENT / PLAN Assessment: The resort manager met with Kalen Vega to discuss his current hospitalization and home goingneeds. The patient was accompanied by son, Kar . The patient was a reliable historian. The role ofRN Retail Sales Professional was reviewed. The patient reviewed his prior level of care and support system. The patient receives support from his and children. The patient described his living environment as a home with bedroom and bathroom on same floor withstairs to enter with rails. Housekeeping, grocery shopping, meal prep, and other household responsibilities have previously been completed by patient and patient's son. resort manager discussed the patient's potential needs at [...] [facility] care. Patient stated that [employer] was supposed to be set- up at discharge after the last hospital stay but that the company never received orders to start care and that he was told by nursing that due to his PICC removal he would not need care. Retail Sales Professional will clarifywith home health team regarding if [...] chart and meeting with the patient, the resort manager deemed the LACE+/readmission questions were appropriate. [...] current readmission could have been prevented. The resort manager will share this information with the care team. The patient reports understanding that he will dismiss from the hospital when medically stable. Thefollowing potential barriers to dismissal have been identified: Home Health Care Addendum 1230: Retail Sales Professional called [facility]. They received the referral but declined due to being at capacity. Plan: The patient agrees with the following plan. Patient's anticipated discharge disposition is: Home with Home Healthcare Referrals sent. Transportation upon dismissal will be provided by family--Kar . resort manager recommended home health services. resort manager provided information regarding the dismissal process and the Senior Linkage Line ([place] Board on Aging) handout. resort manager placed or requested the following hospital-based consult orders and/or referrals: None. resort manager will follow up with the patient [...] with updates and/or transition plan to come. resort manager encouraged the patient to reach out [...] CDT Pre-op Diagnosis Hematuria Post-op Diagnosis Hematuria Breaker Up A first grade teacher actively participated and was necessary for one [...] or filling defects. 5. Placement of [address] with 20 cc in [...] The resectoscope was removed and a [address] catheter was placed with 20 [...] Vitals Temperature 08/30/238 37.1 ??C Pulse Rate 08/30/231944 (!) 145 [...] secondary to cystostomy closure presenting today from [place] with concerns for worsening hematuria. He was [...] 08/30/2023 8:48 AM CDT Pt transferred from [facility] via EMS, pt c/o blocked jon cath that started today. Pt had a right uretal stent exchange and an open bladder repair 08/15/23 and was discharged 08/25. Pt had a3 way jon placed at [place], and transferred here because the clots returned. [...] RN, CPN, HELDERS, CCS, CRC Clinical Documentation Test Clerk Query created by: ELMER Barker, RN, CPN, [...] CDT Procedure visit Department of Urology in [place], [place] [address] [place] [address] Burke Strauss M.D. [address] [place] [address] Discharge Disposition: Home or Self Care 12/07/2023 10:30 AM CDT Office Visit Department of Urology in [place], [place] [address] [place] [address] Burke Strauss M.D. [address] [place] [address] Discharge Disposition: Home or Self Care Pending [...] CDT Roxy Romero M.D. LAB BLOOD ADD-ON [facility] [address] [place] [address], [facility] DTL [facility] [address] [place] [address] * (ABNORMAL) Basic Metabolic Panel (09/05/2023 4:52 [...] M.D. LAB BLOOD ADD-ON Performing Organization Address City/[facility]/ZIP Co de Phone Number [facility] [address] [place] [address], [facility] [address] [place] [address] * (ABNORMAL) Basic Metabolic Panel (09/04/2023 8:15 PM CDT) Pathologist [facility] Potassium, S 3.2(L) [...] CDT Jeffery Valdez M.D. LAB BLOOD ADD-ON [facility] [address] [place] [address], [facility] [address] [place] [address] * (ABNORMAL) CBC without Differential (09/04/2023 8:15 PM CDT) Pathologist [facility] Hemoglobin 9.6(L) 13.2 - 16.6 g/dL 09/04/2023 [...] CDT Jeffery Valdez M.D. LAB BLOOD ADD-ON [facility] [address] [place] [address], [facility] [address] [place] [address] * Transfuse Red Blood Cells : (09/04/2023 3:30 PM CDT) Jeffery Valdez M.D. BLOOD TRANSFUSION OR DERABLES * Transfuse Red Blood Cells : , 1 Units (09/04/2023 3:30 PM CDT) Jeffery Valdez M.D. BLOOD TRANSFUSION OR DERABLES * Type and Screen (with Reflex Antibody ID) (09/04/2023 10:59 AM CDT) Pathologist [facility] ABORh O Pos Not applicable 09/04/2023 11:46 AM CDT STRM Antibody Screen Negative Negative 09/04/2023 11:59 AM CDT STRM Type & Screen Expiration 09/07/2023 23:59 09/04/2023 11:46 AM CDT STRM Testing Location [place] DEFAULT 09/04/2023 11:21 AM CDT STRM Blood (Blood, Venous) 09/04/2023 10:59 AM CDT 09/04/2023 11:21 AM CDT Jeffery Valdez M.D. LAB BLOOD BANK TEST ORDERABLES Performing Organization Address [facility] Co de Phone Number [facility] [address] [place] [address], [facility] STRM [facility] [address] [place] [address] * Heparin Anti-Xa Assay (09/04/2023 7:34 AM [...] A DD-ON Performing Organization Address [facility] Co de Phone Number [facility] [address] [place] [address], [facility] DTL [facility] [address] [place] [address] * (ABNORMAL) CBC without Differential (09/04/2023 7:34 [...] Paula Hernandez M.D. LAB BLOOD ADD-ON [facility] [address] [address], [place] [address] * Heparin Anti-Xa Assay (09/04/2023 12:30 AM [...] A DD-ON Performing Organization Address [facility] Co de Phone Number [facility] [address] [place] [address] * Bacterial Culture, Aerobic + Susceptibility, Urine (09/03/2023 10:50 AM CDT) [facility] Urine Culture No growth after 1 day of incubation. 09/04/2023 8:52 AM CDT DTL Urine (Urine, Indwelling Catheter) 09/03/2023 10:50 AM CDT 09/03/2023 11:53 AM CDT Comment:Specimen Source Site : Urine Jeffery Valdez M.D. LAB MICROBIOLOGY - G ENERAL ORDERABLES Performing Organization Address [facility] Co de Phone Number [facility] [address] [place] [address] * (ABNORMAL) CBC without Differential (09/03/2023 3:29 [...] BLOOD ADD-ON Performing Organization Address [facility] Co de Phone Number [facility] [address] [place] [address] * Heparin Anti-Xa Assay (09/03/2023 3:29 AM [...] A DD-ON Performing Organization Address [facility] Co de Phone Number [facility] [address] [place] [address], [facility] [address] [place] [address] * Heparin Anti-Xa Assay (09/02/2023 2:57 AM CDT) [facility] Heparin Anti-Xa, P 0.24 IU/mL 2023 4:09 [...] Alvarez M.D. LAB BLOOD NON A DD-ON [address] [address], [facility] [address] [address] * (ABNORMAL) CBC without Differential (09/01/2023 8:16 PM CDT) [facility] Hemoglobin 8.5(L) 13.2 - 16.6 g/dL 09/01/2023 [...] BLOOD ADD-ON Performing Organization Address [facility] Co de Phone Number [facility] [address] [place], [place] [phone] [place] [address] [facility] [address] [place] [address] * Heparin Anti-Xa Assay (09/01/2023 6:50 PM [...] A DD-ON Performing Organization Address [facility] Co de Phone Number [facility] [address] [place] [address], [facility] [address] [place] [address] * APTT (Activated Partial Thromboplastin Time) (09/01/2023 9:05 AM CDT) Activated Partial Thrombopl Time, P 28 25 - 37 sec 09/01/2023 9:35 AM CDT [facility] Blood (Blood, Venous) 09/01/2023 9:05 AM CDT 09/01/2023 9:21 AM CDT Paula Hernandez M.D. LAB BLOOD ADD-ON [facility] [address] [place] [address], [facility] [address] [place] [address] * (ABNORMAL) Basic Metabolic Panel (08/31/2023 9:36 [...] M.D. LAB BLOOD ADD-ON Performing Organization Address City/[facility]/ZIP Co de Phone Number [facility] [address] [place], [place] [address] [address] [address] * (ABNORMAL) CBC without Differential (08/31/2023 9:36 PM CDT) Pathologist [facility] Hemoglobin 8.6(L) 13.2 - 16.6 g/dL 08/31/2023 [...] CDT Paula Hernandez M.D. LAB BLOOD ADD-ON [facility] [address] [place] [address], [facility] [address] [place] [address] * [place] Fluoro Less Than 1 Hour [...] (ABNORMAL) Hemoglobin (08/31/2023 4:21 AM CDT) Pathologist [facility] Hemoglobin 7.8(L) 13.2 - 16.6 g/dL 08/31/2023 4:47 AM CDT DTL Blood (Blood, Venous) 08/31/2023 4:21 AM CDT 08/31/2023 4:35 AM CDT Kimi Vieira M.D., M.S. [place] [address], [place] [address] * Type and Screen (with Reflex Antibody ID) (08/30/2023 9:50 PM CDT) Pathologist [facility] ABORh O Pos Not applicable 08/30/2023 10:17 PM CDT STRM Antibody Screen Negative Negative 08/30/2023 10:31 PM CDT STRM Type & Screen Expiration 09/02/2023 23:59 08/30/2023 10:17 PM CDT STRM Testing Location [place] DEFAULT 08/30/2023 9:58 PM CDT STRM Blood (Blood, Venous) 08/30/2023 9:50 PM CDT 08/30/2023 9:58 PM CDT Shannan N Eggum D.O., M.H.A. LAB BLOOD BANK TEST ORDERABLES Performing Organization Address City/[facility]/ZIP Co de Phone Number [facility] [address] STRM [facility] [address] [place] [address] * Lactate (08/30/2023 9:50 PM CDT) Pathologist [facility] Lactate, P 1.8 0.5 - 2.2 mmol/L 08/30/2023 10:09 PM CDT [facility] Blood (Blood, Venous) 08/30/2023 9:50 PM CDT 08/30/2023 9:55 PM CDT Shannan Correa D.O., M.H.A. LAB BLOOD NON ADD-ON Performing Organization Address City/[facility]/ZIP Co de Phone Number [address] STMA [facility] [address] [place] [address] * (ABNORMAL) Basic Metabolic Panel (08/30/2023 9:49 PM CDT) [facility] Potassium, P 3.6 3.6 - 5.2 mmol/L [...] Correa D.O., M.H.A. LAB BLOOD ADD- ON [facility] [address] [place] [address], [facility] [address] [place] [address] * (ABNORMAL) CBC with Differential, Blood (08/30/2023 [...] Correa D.O., M.H.A. LAB BLOOD ADD- ON [facility] [address] [place] [address], [facility] STMA [facility] [address] [place] [address] DHPM [facility] [address] [place] [address] * DX Chest AP or PA and [...] ECG 12 Lead (08/30/2023 7:44 PM CDT) [facility] Ventricular Rate ECG/Min 145 BPM MUSE WV Interval 136 ms MUSE QRSD Interval 64 ms MUSE QT Interval 260 ms MUSE QTC Interval 403 ms MUSE P [place] 44 degrees MUSE R [place] 9 degrees MUSE T Wave [place] -76 degrees MUSE 08/30/2023 7:44 PM CDT [...] Bag 09/01/2023 2:05 AM CDT 3,000 mL Bag 08/30/2023 10:13 PM CDT 3,000 mL [...] give total of 40 mEq Dissolve per public policy associate recommendations. Do NOT chew or swallow tablet., [...] Sarah Morgan R.N. - Reason: See Provider Order)1496 (Unheld by provider - Provider: Jeffery Valdez M.D.) 1526 (Given - Provider: Tayler Espinoza R.N.) 0911 [...] give total of 40 mEq Dissolve per public policy associate recommendations. Do NOT chew or swallow tablet., Monitor the following for replacement: Potassium, Replace Potassium per: Standard Schedule 1757 (Given - Provider: Mayur CapmNJonah) rivaroxaban tablet 10 mg (XARELTO) 10 mg, [...] patency 0950 (Given - Provider: Sarah Morgan R.N.)0 (Given - Provider: Gaye Dillard R.N.) 0814 [...] 1809 (New Bag - Provider: Sarah Morgan RJonahNJonah - Comment: verified with Tayler MCCULLOUGH) 0125 (Rate/Dose Change - Provider: Gaye Dillard R.N. - Comment: no change)0129 (New Bag - Provider: Gaye Dillard R.N.)0717 (Handoff - Provider: Gaye Dillard R.N.)0847 (Rate/Dose Change - Provider: Joy Jackson R.N. - Comment: with Tayler, RN)1117 (Stopped - Provider: Joy Jackson R.N.) Lactated [...] intravenous, As needed, antiXa 0.1-0.19, Starting on [facility] 09/03/23 at 1608, Intensity type: Moderate, Anti-Xa < 0.1: Loading Dose (Units/kg): 60, Anti-Xa 0.1-0.19: Loading Dose (Units/kg): 30, Anti-Xa > 0.19: Loading Dose (Units/kg): 0 Or heparin (porcine) 1,000 unit/mL injection 5,500 Units (CANCELED) 5,500 Units (rounded from 5,544 Units = 60 Units/kg ? 92.4 kg), intravenous, As needed, antiXa less than 0.1, Starting on [facility] 09/03/23 at 1608, Intensity type: Moderate, Anti-Xa [...] 2256 documented in this encounter Care Teams Forwarder Operator Relationship Specialty Start Date End Date Elsewhere, Pcp PCP - General Internal Medicine 08/13/23 documented as of this encounter
--- OUTSIDE RECORDS SUMMARY | 2023-11-18 12:38 | XMS_ITS | Encounter Summary ---
Author Organization [facility] Address [address] [place] [address] Care Team Providers Care Bulk Gas Specialist Name Role Phone Elsewhere, Pcp Primary Care Provider Unavailabl e Encounter Details Date Type Department Care Team (Late st Contact Info) Description 08/31/2023 12:34 PM CDT Anesthesia Event RST ROMB MAIN OR [address] [place] [address] [phone] Joe Stoll M.D. [address] [place] [phone] Benjamin Williamson APRN, MEDICAL NURSE [address] [place] [phone] Anesthesia Record Procedure Summary Procedure Name Responsible [...] (P er patient); Unknown; (unsure); Pressure inj; Stage 3; Coccyx; Pre-Existing over Scar Tissue 08/23/23 0052 by Lisa Serrano RNarendra Bladder Irrigation 08/15/23; 1143; Dr. De Paz; Continuous; Three-way; 24 Fr; 30 mL (balloon filled with 10 ml water); Yes; 08/31/23; 1304 08/15/23 1143 by Janina Coronado RNarendra 08/31/23 1304 by Jacqui Mehta R.N. Wound 08/22/23; 0825; Neck ; Right; Veinotomy; 09/09/23; 1321; Wound healed 08/22/23 0825 by Kirstin Valdes RNarendra 09/09/23 1321 by Jazmine Benítez R.N., C.W.C.N. [...] 1402 08/31/23 1243 by Benjamin Williamson APRN, MEDICAL NURSE 08/31/23 1402 by Benjamin Williamson APRN, MEDICAL NURSE Indwelling Urinary Catheter Placement Date: 08/31/23; Placement [...] Recorded In the past 12 months has [facility] [employer], oil, or water [employer] threatened to shut off services in your [...] your living situation today? I have a [facility] place to live 08/13/2023 Sex and Gender Information Value Date Recorded Sex Assigned at Not on file Gender Identity Not on file Sexual Orientation Not on file documented as of this encounter OR Notes * Anesthesia Postprocedure Evaluation - Joe Stoll M.D. - 08/31/2023 5:27 PM CDT Patient: Kalen Vega Procedure Summary Date: 08/31/23 Room / Location: [address] 01 530 / [facility] in [place], [place] Anesthesia Start: 1234 Anesthesia Stop: 1420 [...] RM OR 108 ROMB 01 530 / [facility] in [place], [place] Providers: Mayur Alvarez M.D. Pertinent components [...] patient / legal guardian, or through an architect in training; patient evaluated and approved for anesthesia / [...] CDT Procedure visit Department of Urology in [address] [phone] Burke Strauss M.D. [address] [place] [phone] Discharge Disposition: Home or Self Care 12/07/2023 10:30 AM CDT Office Visit Department of Urology in [place] [address] [place] [phone] Burke Strauss M.D. [facility] [place] [phone] Discharge Disposition: Home or Self Care documented [...] mg documented in this encounter Care Teams Bulk Gas Specialist Relationship Specialty Start Date End Date Elsewhere, Pcp PCP - General Internal Medicine 08/13/23 documented as of this encounter
--- OUTSIDE RECORDS SUMMARY | 2023-11-18 12:38 | XMS_ITS | Encounter Summary ---
Author Organization [facility] Address [address] [place] [address] Care Team Providers Care Plumbing Manager Name Role Phone Elsewhere, Pcp Primary [...] has e electric, gas, oil, or water [employer] threatened to shut off services in [...] your living situation today? I have a [facility] place to live 08/13/2023 Sex and Gender Information Value Date Recorded Sex Assigned at Not on file Gender Identity Not on file Sexual Orientation Not on file documented as of this encounter Plan of Treatment Upcoming Encounters Date Type Department Care Team (Latest Contact Info) Description 12/07/2023 10:15 AM CDT Procedure visit Department of Urology in [place] [address] [place] [address] Burke Strauss M.D. [address] [place] [phone] Discharge Disposition: Home or Self Care 12/07/2023 10:30 AM CDT Office Visit Department of Urology in [place] [address] [place] [phone] Burke Strauss M.D. [address] [place] [phone] Discharge Disposition: Home or Self Care documented [...] on filedocumented in this encounter Care Teams Plumbing Manager Relationship Specialty Start Date End Date Elsewhere, Pcp PCP - General Internal Medicine 08/13/23 documented as of this encounter
--- OUTSIDE RECORDS SUMMARY | 2023-11-18 12:39 | XMS_ITS | Encounter Summary ---
Author Organization [facility] Address [address] [place] [address] Care Team Providers Care Sterile Technician Name Role Phone Elsewhere, Pcp Primary [...] CDT Procedure visit Department of Urology in [place] [address] [place] [address] Burke Strauss M.D. [facility] [place] [phone] Discharge Disposition: Home or Self Care 12/07/2023 10:30 AM CDT Office Visit Department of Urology in [place] [address] [place] [address] Burke Strauss M.D. 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
--- OUTSIDE RECORDS SUMMARY | 2023-11-18 12:39 | XMS_ITS | Encounter Summary ---
Author Organization [facility] Address [address] [place] [address] Care Team Providers Care Recovery Coordinator Name Role Phone Elsewhere, Pcp Primary Care Provider Unavailabl e Encounter Details Date Type Department Care Team (Late st Contact Info) Description 08/26/2023 Orders Only Department of Urology in [place], [place] [address] [place] [phone] Paula Hernandez M.D. [address] [place] [phone] Social History Tobacco Use Types Packs/Day Years Used Date Smoking Tobacco: Never Smokeless Tobacco: Never [facility] Utilities Answer Date Recorded In the past 12 months has [facility] electric, gas, oil, or water [employer] threatened to shut off services in your [...] CDT Procedure visit Department of Urology in [place] [address] [place] [phone] Burke Strauss M.D. [address] [place] [phone] Discharge Disposition: Home or Self Care 12/07/2023 10:30 AM CDT Office Visit Department of Urology in [place], [place] [address] [place] [address] Burke Strauss M.D. [address] [place] [address] Discharge Disposition: Home or Self Care documented as of this encounter Visit Diagnoses Not on filedocumented in this encounter Care Teams Recovery Coordinator Relationship Specialty Start Date End Date Elsewhere, Pcp PCP - General Internal Medicine 08/13/23 documented as of this encounter
--- OUTSIDE RECORDS SUMMARY | 2023-11-18 12:39 | XMS_ITS | Encounter Summary ---
Author Organization [facility] Address [address] [place] [address] Care Team Providers Care Elevator Attendant Name Role Phone Elsewhere, Pcp Primary Care Provider Unavailabl e Reason for Visit * Reason Comments Urinary Problem Rapid Heart Rate Encounter Details Date Type Department Care Team (Late st Contact Info) Description 08/31/2023 12:36 PM CDT - 08/31/2023 2:31 PM CDT Surgery RST ROMB MAIN OR [address] [place] [address] Mayur Alvarez M.D. [address] [place] [id number] CYSTOSCOPY EVACUATION CLOTS Social History Tobacco Use Types Packs/Day Years Used Date Smoking Tobacco: Never Smokeless Tobacco: Never [facility] Utilities Answer Date Recorded In the [...] PM CDT DISCHARGE SUMMARY BRIEF OVERVIEW Hospital: [facility] Discharge Provider: Mayur Alvarez M.D. Primary Team: [...] Dept 08/31/2023 CYSTOSCOPY EVACUATION CLOTS, CYSTOSCOPY CYSTOGRAM aMyur Alvarez M.D.White, Lindsay A, M.D. [facility] ROMB OR DISCHARGE DISPOSITION Home-Health Care [facility] [6] ACTIVE ISSUES REQUIRING FOLLOW UP OUTPATIENT [...] CONSULT TO CARE MANAGEMENT IP CONSULT TO LUBRICATOR GRANULATOR WOUND CARE IP CONSULT TO HYPERBARIC MEDICINE CONDITION AT DISCHARGE improved Discharge instructions were provided to the patient and caregiver(s). documented in this encounter Discharge Instructions * Patient Instructions* Carmen Louis, R.N. - 08/31/2023 9:44 AM CDT The Senior LinkAge Line?? is a service of the [place] Board on Aging in partnership with [place]'s Area Agencies on Aging. It is a free service of the [facility] that connects older [place] and their families with the help they need. Call the Senior LinkAge Line?? at: [phone] M-F, 8am-4:30pm to connect with specialists that are available to assist you with your specific needsor check out their website at https://www.OptTown.com * Attachments The following attachments cannot be sent through Care Everywhere. * Cefdinir (By mouth) (Frisian) documented in this encounter Medications at Time [...] questions or concerns. Pager during business hours: [phone] Pager after hours: [phone] * Jeffery Valdez M.D. - 09/04/2023 10:34 [...] questions or concerns. Pager during business hours: [phone] Pager after hours: [phone] * Jeffery Valdez M.D. - 09/03/2023 4:10 [...] questions or concerns. Pager during business hours: [phone] Pager after hours: [phone] * Paula Hernandez M.D. - 09/02/2023 6:25 [...] questions or concerns. Pager during business hours: [phone] Pager after hours: [phone] * Michelle Willams RJonahN., C.W.C.N. - 09/01/2023 11:43 AM CDT [facility] Wound RN consulted to assess Kalen Vega skin alterations. Wound assessment, pain, and Wilberto score noted in the flowsheet. The patient consented to photography of the affected area for clinical trending purposes. Images were taken and are available in QREADS. History: Per provider note, patient is an 83 y.o. male admitted for worsening hematuria and clot obstructed Jno catheter s/p cystostomy closure with R ureteral [...] Secondary Dressing Status Clean;Dry;Intact Changed by Wound supervisor inventory merchandising Ongoing management Nursing;Wound/harpsichord maker Urine Assessment Urine Color Colorless Hematuria Scale [place] Urine Appearance Clear;Sediment Head to toe skin [...] update the patient. Son stated that a University Partnership Rep visited the home and will be trying to assist both and patient with cares/coordination. OBJECTIVE Patient is located [facility] room 111. Referrals were sent to the following agencies: Home Medical Care - Admitted Since 08/30/2023 Service Provider Request Status Selected Services Address Phone Fax Patient Preferred [facility] [place] Pending - Request Sent N/A [address], [facility] [phone] -- [facility] Pending - Request Sent N/A [address] [facility] [address], [facility] [address] -- Home Health Care Pending - Request Sent N/A [address], [facility] [address] -- [facility] Pending - Request Sent N/A [address] [facility] [phone] -- [place] Pending - Request Sent N/A [address] [facility] [phone] -- [facility] Pending - Request Sent N/A [address] [facility] [address], [facility] [phone] -- [facility] Declined Facility Full N/A [address] [facility] [phone] -- ASSESSMENT / PLAN ASSESSMENT Printing Supervisor attempted to contact patient on room phone but was unable to get through. Case Manageras able to reach his son who will update that patient that the preferred home health agency was unable to accept and that referrals would be sent to other home health agencies. Requested services arenursing for wound care and catheter and PT/OT. PLAN Printing Supervisor will follow up with referrals. Case Manger [...] questions or concerns. Pager during business hours: [phone] Pager after hours: [phone] * Paula Hernandez M.D. - 08/31/2023 10:45 AM CDT UROLOGY CHIEF SERVICE PROGRESS NOTE SUBJECTIVE Kalen Vega was seen by the team during morning rounds. Feeling overall well this morning. Denies abdominal pain. Denies suprapubic has. Catheter draining light smith urine on moderate rate CBI. Tolerating general diet without nausea or vomiting. OBJECTIVE Vital signs: AV Physical Exam: General: [...] risks associated with surgery and anesthesia including GA, stroke, and VTE were also discussed. Finally, [...] Meds: Plavix, Xarelto Consults: None Signed by: Paual Hernandez M.D. 08/31/2023 10:45 AM CDT Please page the Urology Chief Service with questions or concerns. Pager during business hours: [phone] Pager after hours: [phone] Associated attestation - Mayur Alvarez M.D. - 08/31/2023 12:14 PM CDT I agree with the Urology Chief Service plan for palliative cystoscopy under anesthesia, clot evacuation, proceed as indicated. We will plan for judicious irrigation given his recent bladder surgery and we will perform a cystogram at the end of the procedure. * Demarco Salazar, PharmJonahD., R.Ph., [facility] - 08/31/2023 7:19 AM CDT Images from [...] Pedrito Salazar Pharm.D., R.Ph., [facility] Admission Medication History Note Adherence issues: No [...] Complete Set By: Demarco Salazar Pharm.D., R.Ph., [facility] at 08/31/2023 7:22 AM Taking? Last Dose [...] an 83 y.o. 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 He developed hematuria with clot retention on 08/11, and was admitted to local hospital for CBI. He was then transferred to [facility] on 08/12; a CT cystogram [...] was initiated on CBI and transferred to [facility] for further management. On my [...] for radiation proctitis SOCIAL HISTORY Lives in [place], [place] OBJECTIVE Vitals Blood pressure 134/84, pulse [...] & Screen Expiration 09/02/2023 23:59 Testing Location [facility] Imagin08/30/23 EXAM: US URINARY BLADDER COMPARISON: CT [...] hematuria, clot obstruction and was transferred to [facility] for further evaluation and management. Urinary bladder ultrasound showing 5 cm clot burden; catheter draining on fast-rate CBI after multiple rounds of hand irrigation. Plan - Continue CBI - Q2h hr hand irrigations - NPO overnight pending am re-evaluation - Hold Plavix, Xarelto for now The above was discussed with Drs. Venegas and Lefty, the chief urology residents correctional food service supervisor. Please page chief Urology [place] [phone] [place] [phone] afterhours. documented in this encounter Procedure Notes [...] androgen deprivation therapy. 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 No scuba diving experience. Electronic health [...] Risk Management Plan:Standard precautions * Carmen Louis, RJonahN. 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 Services Used: No Person(s) present during interview: Person(s) Present During Interview: patient and child Kar History of Present Illness #1 Hematuria Social History Support System: spouse, children, and home care staff Primary Caregiver: self and family Finance/Insurance Primary insurance: MEDICARE A AND B Secondary insurance: [employer]A benefits: No Advance Directives Legal Decision Maker: Self Advance Directives: N/A Advance Directives Status: N/A OBJECTIVE Baseline Functional Status Baseline Activities of Daily Living Mobility: Requires aide of device Dressing: Independent Feeding: Independent Bathing: Independent Grooming: Independent Toileting: Independent Behavior: Appropriate, Pleasant, Calm, Cooperative, Oriented Communication: Can write, Talks, Understands speaking, Understands Frisian, Reads Shopping: Needs assistance Medication Management: Independent Housekeeping: Needs assistance Meal Prep: Independent Assistive Devices: Walker - front wheeled, Eyeglasses, Hearing aid(s) Agency Name: [facility] Provided: Group Home/PT/OT Transportation: Support from family Baseline Services/Resources Primary care clinic and provider: ELSEWHERE, PCP Additional Resources: N/A Anticipated Needs Functional Status: Housekeeping, Shopping, Transportation use (drive car, use taxi/bus), Mobility, Transfer to/from bed, chair, etc., Bathing Assistive Devices: Eyeglasses, Hearing aid(s), Walker - front wheeled Services/Resources: Home health Agency Name: [facility] Provided: Group Home/PT/OT Anticipated Modifications to the Patient's Home: None Transportation Needs: Support from family Does the patient need discharge transport arranged?: No Anticipated Discharge Destination: Home-Health Care [facility] ASSESSMENT / PLAN Assessment: The rail specialist met with Kalen Vega to discuss his current hospitalization and home goingneeds. The patient was accompanied by son, Kar . The patient was a reliable historian. The role ofRN Printing Supervisor was reviewed. The patient reviewed his prior level of care and support system. The patient receives support from his and children. The patient described his living environment as a home with bedroom and bathroom on same floor withstairs to enter with rails. Housekeeping, grocery shopping, meal prep, and other household responsibilities have previously been completed by patient and patient's son. rail specialist discussed the patient's potential needs at dismissal based on their home setting, previous needs and responsibilities, homebound status, and relevant assessments with the patient. The patient will be safe and supported to return home with [facility] or previous services noted above when [...] PICC removal he would not need care. Printing Supervisor will clarifywith home health team regarding if [...] chart and meeting with the patient, the rail specialist deemed the LACE+/readmission questions were appropriate. The [...] current readmission could have been prevented. The rail specialist will share this information with the care team. The patient reports understanding that he will dismiss from the hospital when medically stable. Thefollowing potential barriers to dismissal have been identified: Home Health Care Addendum 1230: Printing Supervisor called [facility]. They received the referral but declined due to being at capacity. Plan: The patient agrees with the following plan. Patient's anticipated discharge disposition is: Home with Home Healthcare Referrals sent. Transportation upon dismissal will be provided by family--Kar . rail specialist recommended home health services. rail specialist provided information regarding the dismissal process and the Senior Linkage Line ([place] Board on A[place]) handout. rail specialist placed or requested the following hospital-based consult orders and/or referrals: None. rail specialist will follow up with the patient to [...] with updates and/or transition plan to come. rail specialist encouraged the patient to reach out with [...] CDT Pre-op Diagnosis Hematuria Post-op Diagnosis Hematuria Gis Mapping Technician A endodontic assistant actively participated and was necessary for [...] Shankaree with the note of the resident. Kirstin Hughes M.D. 09/01/23 0842 * Shannan Correa D.O., M.H.A. - 08/30/2023 7:40 PM CDT SUBJECTIVE CHIEF COMPLAINT/REASON FOR VISIT Urinary Problem and Rapid Heart Rate HISTORY OF PRESENT ILLNESS Kalen eVga is an 83-year-old male with history of advanced prostate cancer with complicated by radiation cystitis and proctitis recently admitted for hematuria with bladder perforation secondary to cystostomy closure presenting today from [place] with concerns for worsening hematuria. He was [...] Course as of 08/30/232209e August 30, 2023 2141 US Urinary Bladder There is a large [...] 08/30/2023 8:48 AM CDT Pt transferred from [facility] via EMS, pt c/o blocked jon cath that started today. Pt had a right uretal stent exchange and an open bladder repair 08/15/23 and was discharged 08/25. Pt had a3 way jon placed at [place], and transferred here because the clots returned. [...] RN, CPN, CCDS, CCS, CRC Clinical Documentation Welding Machine Operator Arc Query created by: ELMER Barker, RN, CPN, [...] CDT Procedure visit Department of Urology in [place], [place] [address] [place] [address] [place] Strauss M.D. [facility] [place] [address] Discharge Disposition: Home or Self Care 12/07/2023 10:30 AM CDT Office Visit Department of Urology in [place], [place] [address] [place] [phone] [place] Strauss M.D. [address] [place] [address] Discharge Disposition: Home or Self Care Pending [...] M.D. LAB BLOOD ADD-ON Performing Organization Address City/[facility]/ZIP Co de Phone Number [facility] [address] [place], [place] [address] DTL [facility][note 2] [address] [place] [address] * (ABNORMAL) Basic Metabolic Panel (09/05/2023 4:52 AM CDT) [facility] Potassium, S 3.6 3.6 - 5.2 [...] Jakob De Paz M.D. LAB BLOOD ADD-ON [facility] [address] [place] [address], [facility] DTL [facility][note 2] [address] [place] [address] * (ABNORMAL) Basic Metabolic Panel (09/04/2023 8:15 [...] CDT Jeffery Valdez M.D. LAB BLOOD ADD-ON [facility] [address] [place] [address], [facility] [address] [place] [address] * (ABNORMAL) CBC without Differential (09/04/2023 8:15 PM CDT) Hemoglobin 9.6(L) 13.2 - 16.6 g/dL 09/04/2023 9:[address] [facility] Hematocrit 30.4(L) 38.3 - 48.6 % 09/04/2023 [...] CDT Jeffery Valdez M.D. LAB BLOOD ADD-ON [facility] [address] [place] [address], [facility] [address] [place] [address] * Transfuse Red Blood Cells : (09/04/2023 3:30 PM CDT) Jeffery Valdez M.D. BLOOD TRANSFUSION OR DERABLES * Transfuse Red Blood Cells : , 1 Units (09/04/2023 3:30 PM CDT) Jeffery Valdez M.D. BLOOD TRANSFUSION OR DERABLES * Type and Screen (with Reflex Antibody ID) (09/04/2023 10:59 AM CDT) ABORh O Pos Not applicable 09/04/2023 11:46 AM CDT STRM Antibody Screen Negative Negative 09/04/2023 11:59 AM CDT STRM Type & Screen Expiration 09/07/2023 23:59 09/04/2023 11:46 AM CDT STRM Testing Location [facility] 09/04/2023 11:21 AM CDT STRM Blood (Blood, Venous) 09/04/2023 10:59 AM CDT 09/04/2023 11:21 AM CDT Jeffery Valdez M.D. LAB BLOOD BANK TEST ORDERABLES Performing Organization Address [facility] Co de Phone Number [facility] [address] [place] [address], [facility] STRM [facility][note 2] [address] [place] [address] * Heparin Anti-Xa Assay (09/04/2023 7:34 AM [...] BLOOD NON A DD-ON Performing Organization Address City/[facility]/ZIP Co de Phone Number [facility] [address] [place] [address], [facility] DTL [facility][note 2] [address] [place] [address] * (ABNORMAL) CBC without Differential (09/04/2023 7:34 AM CDT) Pathologist [facility] Hemoglobin 7.7(L) 13.2 - 16.6 g/dL [...] CDT Paula Hernandez M.D. [place] [address], [facility] [address] * Heparin Anti-Xa Assay (09/04/2023 12:30 AM CDT) [facility] Heparin Anti-Xa, P 0.27 IU/mL 2023 1:21 [...] BLOOD NON A DD-ON Performing Organization Address [facility] Co de Phone Number [facility] [address] [place] [address] * Bacterial Culture, Aerobic + Susceptibility, Urine (09/03/2023 10:50 AM CDT) [facility] Urine Culture No growth after 1 day of incubation. 09/04/2023 8:52 AM CDT DTL Urine (Urine, Indwelling Catheter) 09/03/2023 10:50 AM CDT 09/03/2023 11:53 AM CDT Comment:Specimen Source Site : Urine Jeffery Valdez M.D. LAB MICROBIOLOGY - G ENERAL ORDERABLES Performing Organization Address [facility] Co de Phone Number [facility] [address] [place] [address] * (ABNORMAL) CBC without Differential (09/03/2023 3:29 AM CDT) [facility] Hemoglobin 8.0(L) 13.2 - 16.6 g/dL [...] M.D. LAB BLOOD ADD-ON Performing Organization Address City/[facility]/ZIP Co de Phone Number [facility] [address] [place] [address] * Heparin Anti-Xa Assay (09/03/2023 3:29 AM [...] BLOOD NON A DD-ON Performing Organization Address City/[facility]/ZIP Co de Phone Number [facility] [address] [place] [address] * Heparin Anti-Xa Assay (09/02/2023 2:57 AM [...] Alvarez M.D. LAB BLOOD NON A DD-ON [place] [address] [address] [place], [place] [id number] [place] [address] [place] [address] * (ABNORMAL) CBC without Differential (09/01/2023 8:16 PM CDT) [facility] Hemoglobin 8.5(L) 13.2 - 16.6 g/dL [...] M.D. LAB BLOOD ADD-ON Performing Organization Address [facility] Co de Phone Number [facility] [address] [place], [place] [address] [place] [address] [address] [place] [address] * Heparin Anti-Xa Assay (09/01/2023 6:50 PM [...] BLOOD NON A DD-ON Performing Organization Address City[facility] Co de Phone Number [facility] [address] [place] [address], [facility] [address] [place] [address] * APTT (Activated Partial Thromboplastin Time) (09/01/2023 9:05 AM CDT) Activated Partial Thrombopl Time, P 28 25 - 37 sec 09/01/2023 9:35 AM CDT [facility] Blood (Blood, Venous) 09/01/2023 9:05 AM CDT 09/01/2023 9:21 AM CDT Paula Hernandez M.D. LAB BLOOD ADD-ON [facility] [address] [place] [address], [facility] [address] [place] [address] * (ABNORMAL) Basic Metabolic Panel (08/31/2023 9:36 PM CDT) [facility] Potassium, S 4.0 3.6 - 5.2 [...] Hernandez M.D. LAB BLOOD ADD-ON [facility] [address] [place], [place] [id number] [place] [address] [facility] [address] [place] [address] * (ABNORMAL) CBC without Differential (08/31/2023 9:36 [...] Hernandez M.D. LAB BLOOD ADD-ON [facility] [address] [facility] [address] [place] [address] * FL Fluoro Less Than 1 Hour [...] LAB BLOO D ADD-ON Performing Organization Address [facility] Co de Phone Number [facility] [address] DTL [facility][note 2] [address] [place] [address] * Type and Screen (with Reflex Antibody ID) (08/30/2023 9:50 PM CDT) Pathologist [facility] ABORh O Pos Not applicable 08/30/2023 10:17 PM CDT STRM Antibody Screen Negative Negative 08/30/2023 10:31 PM CDT STRM Type & Screen Expiration 09/02/2023 23:59 08/30/2023 10:17 PM CDT STRM Testing Location [facility] DEFAULT 08/30/2023 9:58 PM CDT STRM Blood (Blood, Venous) 08/30/2023 9:50 PM CDT 08/30/2023 9:58 PM CDT Shannan Correa D.O., M.H.A. LAB BLOOD BANK TEST ORDERABLES Performing Organization Address [facility] Co de Phone Number [facility] [address] [place] [address], [facility] STRM [facility][note 2] [address] [place] [address] * Lactate (08/30/2023 9:50 PM CDT) Lactate, P 1.8 0.5 - 2.2 mmol/L 08/30/2023 10:09 PM CDT [facility] Blood (Blood, Venous) 08/30/2023 9:50 PM CDT 08/30/2023 9:55 PM CDT Shannan Correa D.O., M.H.A. LAB BLOOD NON ADD-ON [facility] [address] [place] [address], [facility] STMA [facility][note 2] [address] [place] [address] * (ABNORMAL) Basic Metabolic Panel (08/30/2023 9:49 [...] Correa D.O. M.H.A. LAB BLOOD ADD- ON [facility] [address] [place] [address], [facility] STMA [facility][note 2] [address] [place] [address] * (ABNORMAL) CBC with Differential, Blood (08/30/2023 [...] Correa D.O., M.H.A. LAB BLOOD ADD- ON [facility] [address] [place] [address], [place] STMA [facility][note 2] [address] [place] [address] [facility] [address] [place] [address] * DX Chest AP or PA and [...] CDT) Ventricular Rate ECG/Min 145 BPM MUSE [place] Interval 136 ms MUSE QRSD Interval 64 ms MUSE QT Interval 260 ms MUSE QTC Interval 403 ms MUSE P Raymond 44 degrees MUSE R Raymond 9 degrees MUSE T Wave Raymond -76 degrees MUSE 08/30/2023 7:44 PM CDT [...] give total of 40 mEq Dissolve per garment parts cutter machine recommendations. Do NOT chew or swallow tablet., [...] Repeat anti-Xa: 6 hours after Heparin resumed 4177 (New Bag - Provider: Sarah Morgan RJonahNJonah - Comment: verified with Tayler MCCULLOUGH) 0125 (Rate/Dose Change - Provider: Gaye Dillard R.N. - Comment: no change)0129 (New Bag - Provider: Mayur WestonNJonah)0717 (Handoff - Provider: Gaye Dillard R.N.)0847 (Rate/Dose [...] 2256 documented in this encounter Care Teams Elevator Attendant Relationship Specialty Start Date End Date Elsewhere, Pcp PCP - General Internal Medicine 08/13/23 documented as of this encounter
--- OUTSIDE RECORDS SUMMARY | 2023-11-18 12:39 | XMS_ITS | Encounter Summary ---
Author Organization [facility] Address [address] [place] [address] Care Team Providers Care Accounts Clerk Name Role Phone Elsewhere, Pcp Primary Care Provider Unavailabl e Encounter Details Date Type Department Care Team (Late st Contact Info) Description 08/30/2023 Documentation Department of Urology in [place], [place] [address] [place] [address] Corin Ring M.D. [address] [place] [phone] Social History Tobacco Use Types Packs/Day Years Used Date Smoking Tobacco: Never Smokeless Tobacco: Never [facility] Utilities Answer Date Recorded In the past [address] [facility] [place], gas, oil, or water [employer] threatened to shut off services in your [...] your living situation today? [facility] 08/13/2023 Sex and Gender Information Value Date Recorded Sex Assigned at Not on file Gender Identity Not on file Sexual Orientation Not on file documented as of this encounter Plan of Treatment Upcoming Encounters Date Type Department Care Team (Latest Contact Info) Description 12/07/2023 10:15 AM CDT Procedure visit Department of Urology in [place] [address] [place] [address] Burke Strauss M.D. [address] [place] [phone] Discharge Disposition: Home or Self Care 12/07/2023 10:30 AM CDT Office Visit Department of Urology in [place] [address] [place] [phone] Burke Strauss M.D. [address] [place] [phone] Discharge Disposition: Home or Self Care documented as of this encounter Visit Diagnoses Not on filedocumented in this encounter Care Teams Accounts Clerk Relationship Specialty Start Date End Date Elsewhere, Pcp PCP - General Internal Medicine 08/13/23 documented as of this encounter
--- OUTSIDE RECORDS SUMMARY | 2023-11-18 12:40 | XMS_ITS | Encounter Summary ---
Author Organization [facility] Address [address] [place] [address] Care Team Providers Care Road Production General Manager Name Role Phone Elsewhere, Pcp Primary Care Provider Unavailabl e Encounter Details Date Type Department Care Team (Late st Contact Info) Description 08/23/2023 12:45 AM CDT Ancillary Procedure Department of Nursing Social History Tobacco Use Types Packs/Day Years Used Date Smoking Tobacco: Never Smokeless Tobacco: Never [facility] Utilities Answer Date Recorded In the past 12 months has e electric, gas, oil, or water [email or web address] threatened to shut off services in your [...] Procedure visit Department of Urology in [address] [phone] Burke Strauss M.D. [address] [place] [phone] Discharge Disposition: Home or Self Care 12/07/2023 10:30 AM CDT Office Visit Department of Urology in [address] [phone] Burke Strauss M.D. [address] [place] [phone] Discharge Disposition: Home or Self Care documented [...] on filedocumented in this encounter Care Teams Road Production General Manager Relationship Specialty Start Date End Date Elsewhere, Pcp PCP - General Internal Medicine 08/13/23 documented as of this encounter
--- OUTSIDE RECORDS SUMMARY | 2023-11-18 12:40 | XMS_ITS | Encounter Summary ---
Author Organization [facility] Address [address] [place] [address] Care Team Providers Care Nursing Specialist Name Role Phone Elsewhere, Pcp Primary Care Provider Unavailabl e Encounter Details Date Type Department Care Team (Late st Contact Info) Description 08/15/2023 8:30 AM CDT Anesthesia Event RST ROMB MAIN OR [address] [place] [phone] Hayde Song M.D. [address] [place] [address] Anesthesia Record Procedure Summary Procedure Name Responsible Anesthesiologist Anesthesia Start Time Anesthesia Stop Time Palliative EXPLORATORY LAPAROTOMY, CYSTOTOMY CLOSURE, RIGHT URETERAL STENT EXCHANGE (Abdomen) aHyde Song M.D. 08/15/23 0830 08/15/23 1318 Events [...] R.N. 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 Location: [place] [address] / [facility] in [place], [place] Providers: Boubacar Brock M.D. Pertinent components [...] patient / legal guardian, or through an medical interpreter; patient evaluated and approved for anesthesia [...] CDT Procedure visit Department of Urology in [place] [address] [place] [address] Burke Strauss M.D. [address] [place] [phone] Discharge Disposition: Home or Self Care 12/07/2023 10:30 AM CDT Office Visit Department of Urology in [address] [phone] Burke Strauss M.D. [address] [place] [phone] Discharge Disposition: Home or Self Care documented as of this encounter Procedures Procedure Name Priority Date/Time Associated Diagnosis Comments MC ANE INVASIVE CATH WITH ULTRASOUND Routine 08/15/2023 9:51 AM CDT LDA ANE ARTERIAL LINE INSERTION Routine 08/15/2023 9:51 AM CDT MT US GUIDE VASC ACCESS Routine 08/15/2023 9:51 AM CDT MT ARTL CATH/CNULA MONITOR PERC Routine 08/15/2023 9:51 AM CDT LDA ANE ENDOTRACHEAL AIRWAY Routine 08/15/2023 8:40 AM CDT documented in this encounter Results * MT ARTL CATH/CNULA MONITOR PERC, MT US GUIDE VASC ACCESS, LDA ANE ARTERIAL LINE INSERTION, MC ANE INVASIVE CATH WITH ULTRASOUND (08/15/2023 9:51 AM CDT) Narrative Rae Gonzalez, ARUN, DEBIT AGENT, DNAP - 08/15/2023 9:51 AM CDT Rae [...] ETT location: oral VL device: glide scope [place] scope blade size: 4 Tube size: 7.5 [...] mg documented in this encounter Care Teams Nursing Specialist Relationship Specialty Start Date End Date Elsewhere, Pcp PCP - General Internal Medicine 08/13/23 documented as of this encounter
--- OUTSIDE RECORDS SUMMARY | 2023-11-18 12:40 | XMS_ITS | Encounter Summary ---
Author Organization [facility] Address [address] [place] [address] Care Team Providers Care Foiling Machine Operator Name Role Phone Elsewhere, Pcp Primary Care Provider Unavailabl e Encounter Details Date Type Department Care Team (Latest Contact Info) Description 08/13/2023 3:42 PM CDT - 08/26/2023 4:11 PM CDT Hospital Encounter [facility], [facility], Sixth Floor [address] [place] [address] Darnell Garcia M.D. [address] [place] [phone] Boubacar Brock M.D. [address] [place] [phone] Decline Functional Status [R53.81] (Primary Dx); Hematuria [...] living situation today? I have a [facility] place to live 08/13/2023 Sex [...] CDT DISCHARGE SUMMARY BRIEF OVERVIEW Hospital: [facility] Discharge Provider: Boubacar Brock M.D. Primary Team: [facility] Urology Surgery - Chief Helga - Bob [...] M.D.Wen, Lexiaochuan, M.D.Premo, Hayley, M.D.Botkin, Hannah, M.D. [facility] ROMB OR DISCHARGE DISPOSITION Home or Self Care [1] ACTIVE ISSUES REQUIRING FOLLOW UP OUTPATIENT FOLLOW UP Scheduled Appointments 08/26/2023 1:00 PM [facility] Radiology For appointment details refer to [...] he felt completely obstructed and presented to [facility] Attempted Tabares insertion but bladder irrigation was unsuccessful on multiple attempts. Hung 1U pRBC's. Given some volume and transferred to [facility] ICU ICU Course Urology consulted and [...] CONSULT TO NUTRITION SUPPORT IP CONSULT TO AUDIO VISUAL ARTS DIRECTOR WOUND CARE CONDITION AT DISCHARGE stable Discharge [...] he felt completely obstructed and presented to [facility]. [facility] Attempted Tabares insertion but bladder irrigation was unsuccessful on multiple attempts. Hung 1U pRBC's. Given some volume and transferred to [facility] ICU ICU Course Urology consulted and [...] PM CDT You were discharged from the [facility] Urology Surgery - Chief A - Blue Service. Please identify this service name if you call with questions after hospitalization. * Attachments The following attachments cannot be sent through Care Everywhere. * Bacitracin (On the skin) (Ivorian) * Cefdinir (By mouth) (Ivorian) * Trospium (By mouth) (Ivorian) documented in this encounter Medications at Time of Discharge Medication Sig Dispensed Refills Start Date End Date metoprolol succinate (TOPROL-XL) 50 mg 24 hr [...] Progress Notes * Emeterio Buchanan P.T., D.P.T., [facility] - 08/26/2023 4:27 PM CDT 08/26/23 8109 Reason Therapy Missed Reason Therapy Missed Receiving other care Attempted to see patient twice today. On 1st attempt patient was receiving blood transfusion and RNwas working on completing cares with him. On 2nd attempt patient was with another provider. * Chary Diamond M.A., O.T., [facility] - 08/26/2023 10:21 AM CDT Occupational Therapy [facility] Inpatient Treatment SUBJECTIVE Patient's Name: Kalen Vega Referring/Attending Provider: Boubacar Brock M.D. Reason for Referral: Occupational Therapy Evaluation and Treatment History of Present Illness: Kalen Vega is a 83 y.o. male who was admitted to [facility] in [place] on 08/13/2023 for Hematuria [R31.9]. Precautions Other Precautions: Abdominal, fall precautions, monitor tachycardia and hypertension Pain Assessment: Pain not reported during session. Subjective Comments: Agreeable to therapy session. Team Communication: The patient's status was discussed and coordination of care occurred with RN, Family/Caregiver, nurse tech Family/Caregiver Present: son and [id number] OBJECTIVE Vital Signs: Vitals not formally assessed during session. No concerns during chart review and the patient had nosigns or symptoms consistent with vital changes during therapy session. Outcome Measures: [facility] Inpatient Short Form: Putting on and [...] at or below 17 Clinicians answer the [facility] Inpatient Short Form based on observed [...] through pant leg first. - Adaptive Equipment: Electrical Technician TOILETING - Assist Level: Maximal Assist [...] (Edge of bed) - Assist Level: Modified [place] - Equipment: bed rail - Therapist Delivery: assessed, instructed, assisted - Adaptive Equipment: leg dispatcher service trialed ; however, patient able to move [...] extremity (stiff knee) first. Recommended adaptive equipment: Electrical Technician. Toileting - Patient instructed on accurate [...] maximal exertion Handouts provided: Bathroom Safety Equipment [id number], Techniques to Help You Save Energy [id number] Patient was left in bedside chair with [...] [place] 6C -room 121 ASSESSMENT / PLAN VIDEO GAME DESIGNERinternational tax manager met with patient and son Kar to inform them of home health care acceptance for PT/OT. Patient's son Kar and [id number] will provide transportation at the time of discharge. PLAN Patient to discharge home with home health care. Home Medical Care - Admitted Since 08/13/2023 Service Provider Selected Services Address Phone Fax Patient Preferred [facility] [address] [facility] [phone] -- Insulation Board Back Tender: Ghazal NURSING: - Complete documentation in the Discharge Navigator including Nursing Report Info and Facility/NextLevel of Care Info - Call report and arrange for the patient's first visit - Send After Visit Summary and required packet of dismissal information with patient, including advance directive. PRIMARY SERVICE: - Please provide a non-[place] home health order for: physical therapy and [...] be provided by family--patient's son Kar and kdjgywel-oy-hoh. 3. desktop specialist recommended reaching out to family, friends, and neighbors for assistance. 4. desktop specialist provided information regarding the dismissal process. [...] Reviewed with patient #1 Hematuria Please page [facility] [phone]) or [facility] ([phone]) Nutrition Support Service pager with questions. * Emeterio Buchanan P.T., Craig.P.T., [facility] - 08/25/2023 9:35 AM CDT Physical Therapy Inpatient Treatment SUBJECTIVE Patient's Name: Kalen Vega Referring/Attending Provider: Boubacar Brock M.D. Reason for Referral: Physical Therapy Evaluate and Treat History of Present Illness: Kalen Vega is a 83 y.o. male who was admitted to [facility] in [place] on 08/13/2023 for Hematuria [R31.9] Precautions Other [...] throughout session; within normal ranges. Outcome Measures: [facility] Inpatient Short Form: AM-PAC Basic Mobility [...] at or below 17 Clinicians answer the -[facility] Inpatient Short Form based on observed patient activity and/or clinical judgement (ie. patient can be scored without physically performing each activity) Therapeutic Interventions: SIT TO STAND x3: Assistance Level: Supervision static safe house fit with adult there which they usually [place] with a difference educated fully know who [...] Buchanan P.T., D.P.T., G[facility] * Ivy Hernandez OMarlon. - 08/25/2023 9:18 AM CDT Occupational Therapy [facility] Inpatient Treatment SUBJECTIVE Patient's Name: Kalen Vega Referring/Attending Provider: Boubacar Brock M.D. Reason for Referral: Occupational Therapy Evaluation and Treatment History of Present Illness: Kalen Vega is a 83 y.o. male who was admitted to [facility] in [place] on 08/13/2023 for Hematuria [R31.9]. Precautions Other Precautions: Abdominal, fall precautions, monitor tachycardia and hypertension Pain Assessment: Pain not reported during session. Subjective Comments: Agreeable to therapy session. Team Communication: The patient's status was discussed and coordination of care occurred with RN, PT OBJECTIVE Vital Signs: Vitals monitored throughout session; within normal ranges. Outcome Measures: [facility] Inpatient Short Form: Putting on and [...] at or below 17 Clinicians answer the [facility] Inpatient Short Form based on observed [...] including figure four technique. Recommended adaptive equipment: Electrical Technician and Sock Aid. Toileting - Patient [...] and modification tools as needed including leg dispatcher service and/or bed adjustments. Bathroom DME: - Educated [...] in place draining clear yellow urine I/O ([id number]): Fifty-five cc serosanguineous from the drain 1 [...] locallyfor I. He was subsequently transferred to [facility] [...] given SBO on CT and nausea. 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 Venegas, chief urology resident distribution operations supervisor. Pager during business hours: [phone] Pager after hours: [phone] * Emeterio Buchanan P.T., D.P.T., [facility] - 08/24/2023 10:46 AM CDT Physical Therapy Inpatient Treatment SUBJECTIVE Patient's Name: Kalen Vega Referring/Attending Provider: Boubacar Brock M.D. Reason for Referral: Physical Therapy Evaluate and Treat History of Present Illness: Kalen Vega is a 83 y.o. male who was admitted to [facility] in [place] on 08/13/2023 for Hematuria [R31.9] Precautions Other [...] %, and O2flow: Room air Outcome Measures: [facility] Inpatient Short Form: AM-PAC Basic Mobility [...] at or below 17 Clinicians answer the [facility] Inpatient Short Form based on observed [...] baseline. PT Goal #2: Patient will perform jhb-vm-dgmdp transfer with modified independence and least restrictive [...] Total Kcal/day: 1370 based on 84 % Garcia-Smilax Non-standard additives: K 80 mEq Phos 30 [...] magnesium, phosphorus tomorrow. #1 Hematuria Please page [facility] ([phone]) or [facility] ([phone]) Nutrition Support Service pager with questions. * [...] catheter in place draining light smith I/O ([id number]): Forty-two cc serosanguineous from the drain 2.2 [...] 2.5 mg BID eliquis initiated 08/15 per [facility] med curbside recs --transition from [...] have him follow up with his local fisher sponge hooking Comorbidities: --history of DVT status post IVC [...] discussed with Dr. Venegas, chief urology resident distribution operations supervisor. Pager during business hours: [phone] Pager after hours: [phone] * Deanne Mike L.G.S.W., M.S.W. - 08/23/2023 11:25 AM CDT SUBJECTIVE Social Work spoke with [facility]. They cannot provide residential at this time. They can provide OT/PT [...] anticipated discharge date of 08/24/23-08/26/23. Referrals sent: [facility] [place] - [facility] (out of service area) [facility] ASSESSMENT / PLAN ASSESSMENT Patient has robust family support including a son living with him. PLAN Patient desires home health care through [facility]. Social Work will continue to follow to provide support. Social Work will continue to assist with discharge needs. Shorty Sun, M.S.W. 08/23/23 * Jazmine Benítez R.N., C.W.C.N. - 08/23/2023 11:10 AM CDT [facility] Wound RN consulted to assess [...] stent and hematuria who is transferred from [facility] with 3 days of hematuria and [...] None Unable to Measure Y *Wound Bed Closed;Bock;Red Tissue Exposed None Odor None *Exudate Amount [...] 30 minutes > 30 minutes Ongoing management Nursing;Wound/gis software engineer Partial head to toe skin assessment [...] AM CDT * Emeterio Buchanan, P.T., D.P.T., [facility] - 08/23/2023 11:02 AM CDT Physical Therapy Inpatient Treatment SUBJECTIVE Patient's Name: Kalen Vega Referring/Attending Provider: Boubacar Brock M.D. Reason for Referral: Physical Therapy Evaluate and Treat History of Present Illness: Kalen Vega is a 83 y.o. male who was admitted to [facility] in [place] on 08/13/2023 for Hematuria [R31.9] Precautions Other [...] and O2 flow: Room air Outcome Measures: [facility] Inpatient Short Form: [facility] Basic Mobility (V.2) How much help [...] 3-5 steps with a railing?: A Lot [facility] Basic Mobility (V.2) Raw Score: 17 [facility] Basic Mobility (V.2) Standardized Score: 39.67 Interpretation: Based on scoring guidelines using the raw score value: Those going to home had an average score at or above 18 Those going to facility had an average score at or below 17 Clinicians answer the [facility] Inpatient Short Form based on observed [...] baseline. PT Goal #2: Patient will perform hrc-rk-clopx transfer with modified independence and least restrictive [...] D.P.T., GCS * Demarco Salazar, Pharm.D., R.Ph., [facility] - 08/23/2023 10:19 AM CDT Pharmacist [...] Total Kcal/day: 1370 based on 84 % Garcia-Smilax Non-standard additives: MAX chloride Thiamine 100 mg [...] magnesium, phosphorus tomorrow. #1 Hematuria Please page [facility] ([phone]) or [facility] ([phone]) Nutrition Support Service pager with questions. * Ivy Hernandez O.T. - 08/23/2023 8:30 AM CDT Occupational Therapy [facility] Inpatient Treatment SUBJECTIVE Patient's Name: Kalen Vega Referring/Attending Provider: Boubacar Brock M.D. Reason for Referral: Occupational Therapy Evaluation and Treatment History of Present Illness: Kalen Vega is a 83 y.o. male who was admitted to [facility] in [place] on 08/13/2023 for Hematuria [R31.9]. Precautions Other Precautions: Abdominal, fall precautions, monitor tachycardia and hypertension Pain Assessment: Pain not reported during session. Subjective Comments: Agreeable to therapy session. Team Communication: The patient's status was discussed and coordination of care occurred with RN, PT OBJECTIVE Vital Signs: Vitals monitored throughout session; within normal ranges. Outcome Measures: [facility] Inpatient Short Form: Putting on and [...] at or below 17 Clinicians answer the [facility] Inpatient Short Form based on observed [...] catheter in place draining clear yellow I/O ([id number]): 73 cc serosanguineous from the drain Seven [...] 2.5 mg BID eliquis initiated 08/15 per [facility] med curbside recs --transition from [...] have him follow up with his local fisher sponge hooking Comorbidities: --history of DVT status post IVC [...] discussed with Dr. Venegas, chief urology resident distribution operations supervisor. Pager during business hours: [phone] Pager after hours: [phone] * Chary Diamond M.A., O.T., BCP - [...] OBJECTIVE Patient is anticipated to remain at [place] for 3-5 days. Referrals sent: [facility] ASSESSMENT / PLAN ASSESSMENT Patient has robust family support including a son living with him. PLAN Patient desires home health care through [facility]. Social Work will continue to follow to provide support. Social Work will continue to assist with discharge needs. Shorty Sun, M.S.W. 08/22/23 * Emeterio Buchanan P.T., D.P.T., [facility] - 08/22/2023 2:27 PM CDT Physical Therapy Inpatient Treatment SUBJECTIVE Patient's Name: Kalen Vega Referring/Attending Provider: Boubacar Brock M.D. Reason for Referral: Physical Therapy Evaluate and Treat History of Present Illness: Kalen Vega is a 83 y.o. male who was admitted to [facility] in [place] on 08/13/2023 for Hematuria [R31.9] Precautions Other [...] 3-5 steps with a railing?: A Lot [facility] Basic Mobility (V.2) Raw Score: 17 [facility] Basic Mobility (V.2) Standardized Score: 39.67 Interpretation: Based on scoring guidelines using the raw score value: Those going to home had an average score at or above 18 Those going to facility had an average score at or below 17 Clinicians answer the [facility] Inpatient Short Form based on observed [...] baseline. PT Goal #2: Patient will perform ina-vm-omwqq transfer with modified independence and least restrictive [...] Total Kcal/day: 1370 based on 84 % Garcia-Smilax Non-standard additives: MAX chloride Thiamine 100 mg [...] place draining light smith colored urine I/O ([id number]): CBI on slow drip 75 cc serosanguineous [...] 2.5 mg BID eliquis initiated 08/15 per [facility] med curbside recs --transition from [...] have him follow up with his local fisher sponge hooking Comorbidities: --history of DVT status post IVC [...] discussed with Dr. Venegas, chief urology resident distribution operations supervisor. Pager during business hours: [phone] Pager after hours: [phone] * Qamar Jim, Pharm.DJonah, R.Ph. - 08/21/2023 [...] place draining clear smith colored urine I/O ([id number]): 1800 cc urine output 75 cc serosanguineous [...] locallyfor I. He was subsequently transferred to [facility] [...] 2.5 mg BID eliquis initiated 08/15 per [facility] med curbside recs --transition from [...] have him follow up with his local fisher sponge hooking Comorbidities: --history of DVT status post IVC [...] discussed with Dr. Venegas, chief urology resident distribution operations supervisor. Pager during business hours: [phone] Pager after hours: [phone] * Lizette Harvey M.D. - 08/20/2023 8:08 [...] draining clear thin merlot colored urine I/O ([id number]): 240 cc p.o. intake 760 cc urine [...] 2.5 mg BID eliquis initiated 08/15 per [facility] med curbside recs --transition from [...] have him follow up with his local fisher sponge hooking Comorbidities: --history of DVT status post IVC [...] questions or concerns. Pager during business hours: [phone] Pager after hours: [phone] * Qamar Jim, PharmJonahDJonah, R.Ph. - 08/20/2023 [...] AskMayoExpert. Qamar Jim, PharmJonahD., R.Ph. * Lisa Seaman N, O.T., [facility] - 08/19/2023 2:26 PM CDT Occupational Therapy [facility] Inpatient Treatment SUBJECTIVE Patient's Name: Kalen Vega Referring/Attending Provider: Boubacar Brock M.D. Reason for Referral: Occupational Therapy Evaluation and Treatment History of Present Illness: Kalen Vega is a 83 y.o. male who was admitted to [facility] in [place] on 08/13/2023 for Hematuria [R31.9]. Precautions Other Precautions: Abdominal, fall precautions, monitor tachycardia and hypertension Pain Assessment: Pain not reported during session. Subjective Comments: Patient greeted in chair and agreeable to therapy session. Team Communication: The patient's status was discussed and coordination of care occurred with RN OBJECTIVE Vital Signs: Vitals monitored throughout session; within normal ranges. Outcome Measures: [facility] Inpatient Short Form: Putting on and [...] at or below 17 Clinicians answer the [facility] Inpatient Short Form based on observed [...] about patient's nutritional care please contact pager [phone] on weekdays or [phone] on weekends/holidays. NUTRITION ASSESSMENT: Mr. Vega is [...] care everywhere) ESTIMATED NEEDS: Total Calorie Needs: 0823-9685 calories/day Method to Estimate Energy Needs: kcal/kg [...] Sun, M.S.W. 08/20/23 * Scott Pina P.T., D.P.TJonah - 08/19/2023 11:07 AM CDT Physical Therapy Inpatient Treatment SUBJECTIVE Patient's Name: Kalen Vega Referring/Attending Provider: Boubacar Brock M.D. Reason for Referral: Physical Therapy Evaluate and Treat History of Present Illness: Kalen Vega is a 83 y.o. male who was admitted to [facility] in [place] on 08/13/2023 for Hematuria [R31.9] Precautions Other [...] mmHg O2: 96% Room air Outcome Measures: -[facility] Inpatient Short Form: -[facility] Basic Mobility (V.2) How much help [...] 3-5 steps with a railing?: A Little -PAC Basic Mobility (V.2) Raw Score: 18 -[facility] Basic Mobility (V.2) Standardized Score: 41.05 Interpretation: Based on scoring guidelines using the raw score value: Those going to home had an average score at or above 18 Those going to facility had an average score at or below 17 Clinicians answer the -[facility] Inpatient Short Form based on observed [...] Ongoing PT Goal #2: Patient will perform yyw-yk-yqdfy transfer with modified independence and least restrictive [...] in place draining clear pink urine I/O ([id number]): 370 p.o. 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 Pager during business hours: [phone] Pager after hours: [phone] * Lisa Seaman, OCarlos, [facility] - 08/18/2023 11:15 AM CDT Occupational Therapy [facility] Inpatient Treatment SUBJECTIVE Patient's Name: Kalen Vega Referring/Attending Provider: Boubacar Brock M.D. Reason for Referral: Occupational Therapy Evaluation and Treatment History of Present Illness: Kalen Vega is a 83 y.o. male who was admitted to [facility] in [place] on 08/13/2023 for Hematuria [R31.9]. Precautions Other [...] at or below 17 Clinicians answer the -[facility] Inpatient Short Form based on observed [...] doffing over it last. Recommended adaptive equipment: Electrical Technician and Sock Aid. Patient was left in bedside chair, with nursing/RIVER CROSSING SUPERVISOR at end of session with call light [...] admitted to [facility] in [place] on 08/13/2023 for Hematuria [R31.9] Precautions Other [...] 3-5 steps with a railing?: A Little [facility] Basic Mobility (V.2) Raw Score: 18 [facility] Basic Mobility (V.2) Standardized Score: 41.05 Interpretation: Based on scoring guidelines using the raw score value: Those going to home had an average score at or above 18 Those going to facility had an average score at or below 17 Clinicians answer the [facility] Inpatient Short Form based on observed [...] following coordination of care occurred with the melt helper/Caregiver Present: No Patient was left in [...] Progressing PT Goal #2: Patient will perform exq-jg-tfuep transfer with modified independence and least restrictive [...] in place draining clear pink urine I/O ([id number]): 1.2 L p.o. intake 1 L urine [...] diet later today follow up vascular medicine [facility] [address] Summary: Diet: currently limited clears Activity: Ad kong DVT PPX: heparin drip GI PPX: Pantoprazole Bowel Regimen:N/A IVF: none Abx/Microbiology: Ceftriaxone Pain Control: Tylenol, oxycodone 08/18. Scheduled trospium Home Meds Resumed: Metoprolol, tamsulosin, rosuvastatin Held Home Meds: None Consults: None Paula Hernandez M.D. 08/18/2023 6:02 AM CDT Please page the Urology Chief Service with questions or concerns. Pager during business hours: [phone] Pager after hours: [phone] * Tayler Greenwood M.D., M.Ed. - 08/17/2023 [...] the patient follow up with his primary fisher sponge hooking at discharge we will which we will [...] Ringer's Lactated Ringer's * Lisa Seaman, O.T., [facility] - 08/17/2023 10:47 AM CDT Occupational Therapy [facility] Inpatient Treatment SUBJECTIVE Patient's Name: Kalen Vega Referring/Attending Provider: Boubacar Brock M.D. Reason for Referral: Occupational Therapy Evaluation and Treatment History of Present Illness: Kalen Vega is a 83 y.o. male who was admitted to [facility] in [place] on 08/13/2023 for Hematuria [R31.9]. Precautions Other [...] at or below 17 Clinicians answer the [facility] Inpatient Short Form based on observed [...] in place draining clear pink urine I/O ([id number]): NG tube 200 cc Two hundred sixty-five [...] held since 08/11) -[facility] ongoing anticoagulation/antiplatelet. Theyfelt he no [...] questions or concerns. Pager during business hours: [phone] Pager after hours: [phone] * Audi De Luna P.T., D.P.T. - [...] in place draining clear pink urine I/O ([id number]): NG tube 200 cc Two hundred sixty-five [...] with Cardiology [facility] Summary: Diet: NPO Activity: Ad [...] questions or concerns. Pager during business hours: [phone] Pager after hours: [phone] * Paula Hernandez M.D. - 08/15/2023 9:09 AM CDT PROGRESS NOTE: No events. AFVSS. Pain controlled. No flatus. No further emesis overnight. Abdomen more distended than yesterday but remained soft, tender to deep palpation only, no rebound. Twenty-four Yemeni Alcock three-way catheter remains off CBI, draining [...] above was discussed with Dr. Brock, urology residential solar sales consultant on-call who is in agreement [...] Family to bring his home enzalutamide from [place] Irvin Franco Pharm.D., R.Ph. * Jakob De Paz M.D. - 08/14/2023 11:34 AM CDT PROGRESS NOTE: No events. AFVSS. Pain controlled. No flatus. Nauseous and had 2 episodes of emesis. Abdomen more distended than yesterday but remained soft, tender to deep palpation only, no rebound. Twenty-four Yemeni Alcock three-way catheter remains off CBI, draining [...] above was discussed with Dr. Brock, urology residential solar sales consultant on-call who is in agreement [...] Patient discussed with Dr. Sylvester. Page CCM3 [id number] Carlos Alberto Henson M.D. PGY-1 CCM 3 [...] who have asked we place a 24 Yemeni 3-way urinary catheter pending evaluation. We will [...] stent and hematuria who is transferred from [facility] ED with 3 days of hematuria and [...] him to present to local hospital in [place]. OSH Course: His hemoglobin was in the [...] Insecurity: No Food Insecurity (02/16/2022) [facility] [employer] [employer] [facility] Food Insecurity Worried About Running Out of Food in the Last Year: 1 Transportation Needs: No Transportation Needs (02/16/2022) Received from [employer] [facility], [employer] [facility] Transportation Needs Lack of Transportation (Medical): 1 Housing Stability: Low Risk (02/16/2022) Re[facility] [employer], [facility] [employer] [facility] Housing Stability Unable to Pay [...] to this admission. ASSESSMENT / PLAN Mr. Veag is an 83 y/o with CAD s/p [...] Dr. Sylvester and Dr. Rodriguez. Page CCM3 [id number] Carlos Alberto Henson M.D. PGY-1 CCM 3 [...] As expected PRIMARY PROCEDURALIST FAY Cerna MD [phone] ASSISTANTS none COMPLICATIONS None. DRAINS None. IMPLANTS [...] peripheral vein targets. Ultrasound used for assessment: [facility] Provider contacted (include name): Uro Surg [...] 14 -- AST U/L 25 -- Radiology: @[id number]@ Swallow Assessment: No data to display ASSESSMENT / PLAN #1 Hematuria ASSESSMENT Currently we are asked to visit with Mr. Vega for consideration of parenteral nutrition. Nutrition Needs: Height: 180 cm Admission Weight: 91.2 kg (08/13/2023) Current Weight: 90.2 kg BMI (Calculated): 27.8 kg/m?? Total Calorie Needs: 8987-1706 calories/day Method to Estimate Energy Needs: Garcia-Smilax ( ) Weight Used for Equation Calculations: [...] on electrolytes Please call NSS pager at [phone] at [facility] or [phone] at [facility] with any additional questions. * Gilbert Johnson M.D. - 08/20/2023 8:05 AM CDTAssociated Order(s): Nutrition support service consult ([facility]) SUBJECTIVE Nutrition support service consult ([facility]) Referring Provider: Lizette Harvey M.D. REASON [...] STENT EXCHANGE; Surgeon: Boubacar Brock M.D.; Location: [facility] [place] OR FAMILY HISTORY No family history [...] values in this interval not displayed. Radiology: @[id number]@ Swallow Assessment: No data to display ASSESSMENT / PLAN #1 Hematuria ASSESSMENT Currently we are asked to visit with Mr. Vega for consideration of parenteral nutrition. Nutrition Needs: Height: 180 cm Admission Weight: 91.2 kg (08/13/2023) Current Weight: 90.2 kg BMI (Calculated): 27.8 kg/m?? Total Calorie Needs: 9769-2152 calories/day Method to Estimate Energy Needs: kcal/kg [...] on electrolytes Please call NSS pager at [phone] at [facility] or [phone] at [facility] with any additional questions. BILLING/CODING [...] stent along with other stents and apparently fisher sponge hooking in the past I recommended indefinite dual [...] Units/kg/hr (Dosing Weight), intravenous, Continuous, Aziza Cortez PharmJonahDJonah, R.Ph., Last Rate: 11.9 mL/hr at 08/18/23 0806, 13Units/kg/hr at 08/18/23 08 Lactated Ringer's, 20 mL/hr, intravenous, Continuous, Frieda Garner APRN, HISTOLOGY TECHNOLOGIST, Last Rate: 20 mL/hr at 08/15/23 1459, [...] but he can discuss this with his fisher sponge hooking at home. We need to balance transfusion [...] admitted to [facility] in [place] on 08/13/2023 for Hematuria [R31.9]. Relevant Medical History: Kalen Vega is a 83 y.o. 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 Outcome Measures: [facility] Inpatient Short Form: -[facility] Basic Mobility (V.2) How much help [...] 3-5 steps with a railing?: A Lot -[facility] Basic Mobility (V.2) Raw Score: 17 -[facility] Basic Mobility (V.2) Standardized Score: 39.67 Interpretation: Based on scoring guidelines using the raw score value: Those going to home had an average score at or above 18 Those going to facility had an average score at or below 17 Clinicians answer the [facility] Inpatient Short Form based on observed [...] following coordination of care occurred with the melt helper/Caregiver Present: Favio Alfaro Patient was left in [...] admitted to [facility] in [place] on 08/13/2023 for Hematuria with cystotomy and [...] Min assist for mobility. Required assist for [id number] for force generation and is generally standby [...] Ongoing PT Goal #2: Patient will perform euf-fz-uckem transfer with modified independence and least restrictive [...] - 08/16/2023 10:01 AM CDT Occupational Therapy [facility] Inpatient Evaluation/Treatment SUBJECTIVE Patient's Name: Kalen [...] admitted to [facility] in [place] on 08/13/2023 for Hematuria [R31.9]. Relevant Medical [...] with RN, PT Family/Caregiver Present: Son and ilqboosf-sm-jad. Home Living and Equipment: Lives with: Spouse/Significant [...] walker, Single point cane Adaptive Equipment Owned: Electrical Technician, Long Handled Shoe Horn Other DME Owned: Regular flat bed Prior Level of Function and Mobility: Basic Activities of Daily Living: Independent Instrumental Activities of Daily Living: Required Assistance: Jessicaundmelissa son assists with laundry and cooking Functional Mobility: Independent Driving: Yes Occupational Role: Retired Leisure Interests: watch movies, plays [employer] train, meets friends for breakfast. Patient/Caregiver Goals: [...] at or below 17 Clinicians answer the -[facility] Inpatient Short Form based on observed [...] all are a great support. 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 - 08/13/2023 [...] locally at approximately 3:00 a.m. a 22 Yemeni three-way catheter was placed and CBI wasinitiated. [...] non-distended, non-peritonitic Extremities: No edema : 22 Yemeni three-way Tabares catheter draining a minimal amount [...] urinary retention Given his non draining 22 Yemeni three-way catheter the Urology techs and I subsequently exchanged this for a 24 Yemeni three-way Alcock in the usual sterile fashion. [...] to follow [place] [phone] with questions or concerns Sixto Cain M.D. [...] peripheral vein targets. Ultrasound used for assessment: [facility] Provider contacted (include name): Uro Surg Time contacted: 2019 Recommendation: Referral to IR for placement of chest PICC line * Geneva Cortez RJonahN. - 08/20/2023 8:37 PM CDT Second PICC nurse assessing patient for bedside PICC placement. Both arms scanned, vessels extremely small with several bifurcations; no veins found suitable to attempt; Bedside RN informed; sx contacted; Interventional Radiology recommended for chest PICC or other central line. * Jose Haro, M.S.NJonah, R.N. - 08/14/2023 12:23 PM CDT Patient Transfer Note Patient transferred to: [facility] Room: 101 Accompanied by: JAMEL Garcia Report [...] signs? YES * Sixto Teague R.R.T., L.R.TJonah, [facility] - 08/14/2023 7:00 AM CDT Patient [...] the last 24hours. Sixto Teague R.R.T., L.R.TJonah, [facility] 08/14/23 7:00 AM CDT Electronically signed by Sixto Teague R.R.T., L.R.TJonah, [facility] at 08/14/2023 7:02 AM CDT * [...] Bladder Spontaneous Post-op Diagnosis Rupture Bladder Spontaneous Industrial Relations Representative A financial legal assistant actively participated and was necessary for [...] the supine flexed position. His existing 24 Yemeni three-way Tabares catheter was noted to be [...] additional tissue for additional coverage. A 24 Yemeni three-way catheter was placed with 15 cc in the balloon. This irrigated to light clear pink. A 15 Yemeni YARELI drain wasplaced into the pelvis exiting left lower quadrant. The fascia was closed with interrupted and hvczod-ai-[id number] 0 PDS. Fat was approximated using 3-0 [...] MAR: -LR 1 L Bolus x 2 (-4) -LR @ 75 cc/hr (-7 - -8) Please contact me if you have questions. Thank you, ELMER Barker, RN, CPN, CCDS, CCS, CRC Clinical Documentation Computer Programmer Query created by: ELMER Barker, RN, CPN, [...] stent and hematuria who is transferred from [place] ED with 3 days of hematuria & [...] RN, CPN, CCDS, CCS, CRC Clinical Documentation Computer Programmer Query created by: ELMER Barker, RN, CPN, [...] he felt completely obstructed and presented to [place] ED. [place] Course Attempted Tabares insertion but bladder irrigation was unsuccessful on multiple attempts. Hung 1U pRBC's. Given some volume and transferred to [facility] ICU ICU Course Urology consulted and [...] CDT Procedure visit Department of Urology in [place], [place] [address] [place] [phone] Burke Strauss M.D. [address] [place] [phone] Discharge Disposition: Home or Self Care 12/07/2023 10:30 AM CDT Office Visit Department of Urology in [place], [place] [address] [place] [phone] Burke Strauss M.D. [address] [place] [phone] Discharge Disposition: Home or Self Care Pending [...] NR Authorizing Provider Result Abdifatah Hernandez M.D. IM IR PROCEDURES * Transfuse [...] M.D. LAB BLOOD BANK TEST ORDERABLES [facility] [address] [place] [address], [facility] [address] [place] [address] * (ABNORMAL) CBC without Differential (08/26/2023 3:20 [...] BLOOD ADD-ON Performing Organization Address City/[facility] Co de Phone Number [facility] [place] [address] [place], [place] [phone] [place] [address] * Magnesium (08/26/2023 3:20 AM CDT) Magnesium, S 2.1 1.7 - 2.3 mg/dL 08/26/2023 4:04 AM CDT DTL Blood (Blood, Venous) 08/26/2023 3:20 AM CDT 08/26/2023 3:50 AM CDT Boubacar Brock M.D. LAB BLOOD ADD-ON Performing Organization Address [facility] Co de Phone Number [facility] [place] [address] [place], [place] [phone] [place] [address] * (ABNORMAL) Renal Function Panel (08/26/2023 3:20 [...] M.D. LAB BLOOD ADD-ON Performing Organization Address [facility] Co de Phone Number [facility] [place] [address] [place] [address], [facility] [address] [address] * Heparin Anti-Xa Assay (08/26/2023 3:20 AM [...] BLOOD NON ADD -ON Performing Organization Address [facility]/ZIP Co de Phone Number [facility] [place] [address] [place] [address], [facility] DTL [facility] [address] [place] [address] * (ABNORMAL) CBC without Differential (08/25/2023 3:24 AM CDT) Pathologist [facility] Hemoglobin 8.3(L) 13.2 - 16.6 g/dL 08/25/2023 [...] CDT Corin Ring M.D. LAB BLOOD ADD-ON [facility] [place] [address] [place] [address], [facility] [address] [place] [address] * (ABNORMAL) Renal Function Panel (08/25/2023 3:24 [...] CDT Boubacar Brock M.D. LAB BLOOD ADD-ON [facility] [place] [address] [place] [address], [facility] [address] [place] [address] * Magnesium (08/25/2023 3:24 AM CDT) Magnesium, S 2.2 1.7 - 2.3 mg/dL 08/25/2023 4:36 AM CDT DTL Blood (Blood, Venous) 08/25/2023 3:24 AM CDT 08/25/2023 4:19 AM CDT Boubacar Brock M.D. LAB BLOOD ADD-ON Performing Organization Address [facility]/ZIP Co de Phone Number [facility] [place] [address] [place], [place] [phone] [address] * Heparin Anti-Xa Assay (08/25/2023 3:24 AM [...] City/[facility]/ZIP Co de Phone Number [facility] [place] [address] [place] [address], [address] [address] * (ABNORMAL) CBC without Differential (08/24/2023 5:28 [...] CDT Corin Ring M.D. LAB BLOOD ADD-ON [facility] [place] [address] [place] [address] * Magnesium (08/24/2023 5:28 AM CDT) Magnesium, S 2.3 1.7 - 2.3 mg/dL 08/24/2023 6:19 AM CDT DTL Blood (Blood, Venous) 08/24/2023 5:28 AM CDT 08/24/2023 6:00 AM CDT Boubacar Brock M.D. LAB BLOOD ADD-ON Performing Organization Address City/[facility]/ZIP Co de Phone Number [facility] [place] [address] [facility] [address] [place] [address] * (ABNORMAL) Renal Function Panel (08/24/2023 5:28 [...] Boubacar Brock M.D. LAB BLOOD ADD-ON [facility] [address] [place] [address], [facility] [address] [place] [address] * Heparin Anti-Xa Assay (08/24/2023 5:28 AM [...] City/[facility]/ZIP Co de Phone Number [facility] [place] [address] [place] [address] * (ABNORMAL) Potassium (08/23/2023 9:58 PM CDT) Potassium, S 3.5(L) 3.6 - 5.2 mmol/L 08/23/2023 10:45 PM CDT DT Blood (Blood, Venous) 08/23/2023 9:58 PM CDT 08/23/2023 10:30 PM CDT Boubacar Brock M.D. LAB BLOOD ADD-ON Performing Organization Address City/[facility]/ZIP Co de Phone Number [facility] [place] [address] [place] [address] * (ABNORMAL) Phosphorus Inorganic (08/23/2023 9:58 PM CDT) Phosphorus (Inorganic), S 2.1(L) 2.5 - 4.5 mg/dL 08/23/2023 10:45 PM CDT DT Blood (Blood, Venous) 08/23/2023 9:58 PM CDT 08/23/2023 10:30 PM CDT Paula Hernandez M.D. LAB BLOOD ADD-ON [facility] [place] [address] [place], [place] [phone] [place] [address] * Heparin Anti-Xa Assay (08/23/2023 11:37 AM [...] Boubacar Brock M.D. LAB BLOOD NON ADD-ON [facility] [place] [address] [place], [place] [phone] [place] [address] * (ABNORMAL) CBC without Differential (08/23/2023 3:42 [...] M.D. LAB BLOOD ADD-ON Performing Organization Address [facility] [place] [address] * Triglycerides (08/23/2023 3:42 AM CDT) [facility] Triglycerides 106 mg/dL 08/23/2023 4:50 AM CDT DT Comment: ----REFERENCE VALUE---- Normal: <150 mg/dL Borderline High: 150-199 mg/dL High: 200-499 mg/dL Very High: > or =500 mg/dL Fasting (8 HR or more) Yes 08/23/2023 4:19 AM CDT DTL Blood (Blood, Venous) 08/23/2023 3:42 AM CDT 08/23/2023 4:19 AM CDT Boubacar Brock M.D. LAB BLOOD ADD-ON Performing Organization Address City/[facility] Co de Phone Number [facility] [place] [address] [place] [address] * Magnesium (08/23/2023 3:42 AM CDT) Magnesium, S 2.2 1.7 - 2.3 mg/dL 08/23/2023 4:50 AM CDT DTL Blood (Blood, Venous) 08/23/2023 3:42 AM CDT 08/23/2023 4:19 AM CDT Boubacar Brock M.D. LAB BLOOD ADD-ON [facility] [address] [place] [address], [facility] [address] [place] [address] * (ABNORMAL) Renal Function Panel (08/23/2023 3:42 [...] - 4.5 mg/dL 08/23/2023 4:50 AM CDT DT Blood (Blood, Venous) 08/23/2023 3:42 AM CDT 08/23/2023 4:19 AM CDT Boubacar Brock M.D. LAB BLOOD ADD-ON Performing Organization Address [facility] Co de Phone Number [facility] [place] [address] [place], [place] [phone] [place] [address] [address] [place] [address] * Heparin Anti-Xa Assay (08/23/2023 3:41 AM CDT) Pathologist [facility] Heparin Anti-Xa, P 0.51 IU/mL 2023 4:26 [...] LAB BLOOD NON ADD-ON Performing Organization Address [facility] Co de Phone Number [facility] [place] [address] [place] [address], [facility] [address] [place] [address] * Glucose, POCT (08/22/2023 11:38 PM CDT) Pathologist [facility] Glucose, POCT, B 117 70 - 140 mg/dL 08/23/2023 1:06 AM CDT PCLX Site Capillary 08/23/2023 1:06 AM CDT PCLX Last Intake NPO 08/23/2023 1:06 AM CDT PCLX Blood 08/22/2023 11:3 8 PM CDT 08/23/2023 1:06 AM CDT Unknown Provider LAB POCT ORDERABLES- MANUAL Performing Organization Address City/[facility]/ZIP Co de Phone Number POC [facility] [address] [place] [address], [facility] PCLX [facility] POC [address] [place] [address] * Heparin Anti-Xa Assay (08/22/2023 10:14 PM [...] City/[facility]/ZIP Co de Phone Number [facility] [place] [address] [place] [address], [facility] DTL [facility] [address] [place] [address] * CT Abdomen Pelvis without IV Contrast [...] Boubacar Brock M.D. LAB BLOOD NON ADD-ON [facility] [address] [place] [address], [facility] DTL [facility] [address] [place] [address] * Creatinine, Body Fluid (08/22/2023 3:30 PM [...] transport rates. All other fluids refer to [email or web address] for further interpretive information. This test has been modified from the intelligence senior sergeant's instructions. Its performance characteristics were determined by [...] FLUIDS AND STOOLS ORDERABLES Performing Organization Address City/State/[facility] Co de Phone Number [facility] [address] [place] [address], [facility] [address] [place] [address] * Transfuse Red Blood Cells : (08/22/2023 [...] CBC without Differential (08/22/2023 3:27 AM CDT) Pathologist [facility] Hemoglobin 7.8(L) 13.2 - 16.6 g/dL 08/22/2023 [...] CDT Latisha Whitehead [place] [address], [place] [address] * Type and Screen (with Reflex Antibody ID) (08/22/2023 2:55 AM CDT) Pathologist [facility] ABORh O Pos Not applicable 08/22/2023 3:25 AM CDT STRM Antibody Screen Negative Negative 08/22/2023 3:38 AM CDT STRM Type & Screen Expiration 08/25/2023 23:59 08/22/2023 3:25 AM CDT STRM Testing Location [place] DEFAULT 08/22/2023 3:07 AM CDT STRM Blood (Blood, Venous) 08/22/2023 2:55 AM CDT 08/22/2023 3:07 AM CDT Latisha Whitehead M.D. LAB BLOOD BANK T EST ORDERABLES [facility] [place] [address] [place] [address], [facility] [address] [place] [address] * (ABNORMAL) Comprehensive Metabolic Panel (08/22/2023 2:40 AM CDT) [facility] Potassium, S 3.2(L) 3.6 - 5.2 [...] M.D. LAB BLOOD ADD-ON Performing Organization Address [facility]/ZIP Co de Phone Number [facility] [place] [address] [place], [place] [phone] [place] [address] * Heparin Anti-Xa Assay (08/22/2023 2:40 AM [...] BLOOD NON AD D-ON Performing Organization Address [facility]/ZIP Co de Phone Number [facility] [place] [address] [place] [address], [address] [place] [address] * (ABNORMAL) APTT (Activated Partial Thromboplastin Time) (08/22/2023 2:40 AM CDT) [facility] Activated Partial Thrombopl Time, P 64(H) 25 - 37 sec 08/22/2023 3:12 AM CDT [facility] Blood (Blood, Venous) 08/22/2023 2:40 AM CDT 08/22/2023 3:01 AM CDT Latisha Whitehead M.D. LAB BLOOD ADD-ON [facility] [place] [address] [place], [place] [id number] [place] [address] 200 [place] [address] * Triglycerides (08/21/2023 7:32 AM CDT) [facility] Triglycerides 98 mg/dL 08/21/2023 9:03 AM CDT DT Comment: ----REFERENCE VALUE---- Normal: <150 mg/dL Borderline High: 150-199 mg/dL High: 200-499 mg/dL Very High: > or =500 mg/dL Fasting (8 HR or more) Unknown 08/21/2023 8:38 AM CDT DT Blood (Blood, Venous) 08/21/2023 7:32 AM CDT 08/21/2023 8:38 AM CDT Lizette Harvey M.D. LAB BLOOD ADD-O N [facility] [place] 200 [place] [address], [facility] 200 [place] [address] * Phosphorus Inorganic (08/21/2023 7:32 AM CDT) [facility] Phosphorus (Inorganic), S 2.6 2.5 - 4.5 mg/dL 08/21/2023 9:03 AM CDT DTL Blood (Blood, Venous) 08/21/2023 7:32 AM CDT 08/21/2023 8:38 AM CDT Lizette Harvey M.D. LAB BLOOD ADD-O N [facility] [place] [address] 200 [place] [address] * Magnesium (08/21/2023 7:32 AM CDT) Magnesium, S 2.3 1.7 - 2.3 mg/dL 08/21/2023 9:03 AM CDT DTL Blood (Blood, Venous) 08/21/2023 7:32 AM CDT 08/21/2023 8:38 AM CDT Lizette Harvey M.D. LAB BLOOD ADD-O N [facility] [place] [address] 200 [place] [address] * (ABNORMAL) Basic Metabolic Panel (08/21/2023 7:32 [...] Lizette Harvey M.D. LAB BLOOD ADD-O N [facility] [place] 200 [place] [address], [facility] [address] [place] [address] * (ABNORMAL) CBC without Differential (08/21/2023 7:32 [...] Lizette Harvey M.D. LAB BLOOD ADD-O N [facility] [place] [address] 200 [place] [address] * Heparin Anti-Xa Assay (08/21/2023 7:32 AM [...] Boubacar Brock M.D. LAB BLOOD NON ADD-ON [facility] [place] 200 [place], [place] [id number] [place] [address] 200 [place] [address] * (ABNORMAL) APTT (Activated Partial Thromboplastin Time) (08/21/2023 7:32 AM CDT) Activated Partial Thrombopl Time, P 49(H) 25 - 37 sec 08/21/2023 8:31 AM CDT DT Blood (Blood, Venous) 08/21/2023 7:32 AM CDT 08/21/2023 8:06 AM CDT Boubacar Brock M.D. LAB BLOOD ADD-ON Performing Organization Address City/[facility] Co de Phone Number [facility] [place] [address] [place] [address], [place] DTL [facility] [address] [place] [address] * Place peripherally inserted central catheter (PICC) [...] M.D. PROCEDURE/MINOR SURGICAL ORDERABLES Performing Organization Address [facility] Co de Phone Number MMODAL NA [...] Panel (08/20/2023 3:19 AM CDT) Pathologist [facility] Potassium, S 3.7 3.6 - 5.2 mmol/L [...] CDT Paula Hernandez M.D. LAB BLOOD ADD-ON [address] [address], [facility] [place] [address] [place] [address] * (ABNORMAL) CBC without Differential (08/20/2023 3:19 [...] CDT Paula Hernandez M.D. LAB BLOOD ADD-ON [facility] [place] 200 [place] [address] * (ABNORMAL) APTT (Activated Partial Thromboplastin Time) (08/20/2023 3:19 AM CDT) Activated Partial Thrombopl Time, P 52(H) 25 - 37 sec 08/20/2023 4:33 AM CDT DTL Blood (Blood, Venous) 08/20/2023 3:19 AM CDT 08/20/2023 4:10 AM CDT Boubacar Brock M.D. LAB BLOOD ADD-ON [facility] [place] [address] [facility] 200 [place] [address] * (ABNORMAL) APTT (Activated Partial Thromboplastin Time) (08/19/2023 10:57 AM CDT) Activated Partial Thrombopl Time, P 54(H) 25 - 37 sec 08/19/2023 11:44 AM CDT DTL Blood (Blood, Venous) 08/19/2023 10:57 AM CDT 08/19/2023 11:26 AM CDT Boubacar Brock M.D. LAB BLOOD ADD-ON [facility] [place] [address] 200 [place] [address] * (ABNORMAL) APTT (Activated Partial Thromboplastin Time) (08/19/2023 4:51 AM CDT) [facility] Activated Partial Thrombopl Time, P 59(H) 25 - 37 sec 08/19/2023 5:53 AM CDT DTL Blood (Blood, Venous) 08/19/2023 4:51 AM CDT 08/19/2023 5:36 AM CDT Boubacar Brock M.D. LAB BLOOD ADD-ON Performing Organization Address City/[facility]/ZIP Co de Phone Number [facility] [place] [address] 200 [place] [address] * (ABNORMAL) APTT (Activated Partial Thromboplastin Time) (08/18/2023 10:03 PM CDT) [facility] Activated Partial Thrombopl Time, P 63(H) 25 - 37 sec 08/18/2023 10:41 PM CDT DT Blood (Blood, Venous) 08/18/2023 10:03 PM CDT 08/18/2023 10:19 PM CDT Boubacar Brock M.D. LAB BLOOD ADD-ON [facility] [place] [address] 200 [place] [address] * (ABNORMAL) APTT (Activated Partial Thromboplastin Time) (08/18/2023 2:50 PM CDT) [facility] Activated Partial Thrombopl Time, P 64(H) 25 - 37 sec 08/18/2023 3:25 PM CDT DTL Blood (Blood, Venous) 08/18/2023 2:50 PM CDT 08/18/2023 3:07 PM CDT Boubacar Brock M.D. LAB BLOOD ADD-ON Performing Organization Address City/[facility]/ZIP Co de Phone Number [facility] [place] [address] [place] [address] * (ABNORMAL) APTT (Activated Partial Thromboplastin Time) (08/18/2023 6:42 AM CDT) [facility] Activated Partial Thrombopl Time, P 61(H) 25 - 37 sec 08/18/2023 7:28 AM CDT DT Blood (Blood, Venous) 08/18/2023 6:42 AM CDT 08/18/2023 7:04 AM CDT Boubacar Brock M.D. LAB BLOOD ADD-ON Performing Organization Address City/[facility]/ZIP Co de Phone Number [facility] [place] [address] [place], [place] [address] [place] [address] [address] [place] [address] * (ABNORMAL) APTT (Activated Partial Thromboplastin Time) (08/17/2023 11:04 PM CDT) [facility] Activated Partial Thrombopl Time, P 40(H) 25 - 37 sec 08/17/2023 11:46 PM CDT DT Blood (Blood, Venous) 08/17/2023 11:04 PM CDT 08/17/2023 11:31 PM CDT Boubacar Brock M.D. LAB BLOOD ADD-ON [facility] [place] [address] [place] [address], [place] D[place] [address] [address] * US Lower Extremity Veins Bilateral (08/17/2023 [...] and management can be found on the [employer] site. Link [email or web address] Findings discussed with ??Tayler Greenwood, ?? ([id number]) on 08/17/2023 7:11 PM. Procedure Note Jj [...] management can be found on theAskMayoExpert site. [email or web address] Findings discussed with Tayler Greenwood MD ([id number]) on 08/17/2023 7:11 PM. IMPRESSION: 1. 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 2. No acute left-sided DVT. Corin Ring M.D. [facility] US PROCEDURES * APTT (Activated Partial Thromboplastin Time) (08/17/2023 4:56 PM CDT) Activated Partial Thrombopl Time, P 29 25 - 37 sec 08/17/2023 5:10 PM CDT STMA Blood (Blood, Venous) 08/17/2023 4:56 PM CDT 08/17/2023 5:00 PM CDT Paula Hernandez M.D. LAB BLOOD ADD-ON Performing Organization Address [facility] Co de Phone Number [facility] [place] [address] [place] [address], [facility] [address] [place] [address] * ECG 12 Lead (08/16/2023 9:43 PM CDT) Pathologist [facility] Ventricular Rate ECG/Min 134 BPM MUSE TN Interval 136 ms MUSE QRSD Interval 76 ms MUSE QT Interval 298 ms MUSE QTC Interval 445 ms MUSE P [place] 29 degrees MUSE R [place] -6 degrees MUSE T Wave [place] 21 degrees MUSE 08/16/2023 9:43 PM CDT [...] Azar M.D. ECG ORDERABLES Performing Organization Address [facility] Co de Phone Number MUSE NA [...] CDT [place] Azar M.D. LAB BLOOD ADD-ON [address] [address], [address] [address] * (ABNORMAL) Basic Metabolic Panel (08/16/2023 9:40 PM CDT) Pathologist [facility] Potassium, S 3.9 3.6 - 5.2 mmol/L [...] CDT [place] Azar M.D. LAB BLOOD ADD-ON [facility] [place] [address] [place] [address], [facility] [address] [place] [address] * Transfuse Red Blood Cells : (08/16/2023 12:04 PM CDT) Corin Ring M.D. BLOOD TRANSFUSION OR DERABLES * Transfuse Red Blood Cells : , 1 Units (08/16/2023 12:04 PM CDT) Corin Ring M.D. BLOOD TRANSFUSION OR DERABLES * (ABNORMAL) Basic Metabolic Panel (08/16/2023 3:10 AM CDT) [facility] Potassium, S 4.2 3.6 - 5.2 [...] CDT Paula Hernandez M.D. LAB BLOOD ADD-ON [place] [address] [place] [address], [facility] [address] * (ABNORMAL) CBC without Differential (08/16/2023 3:10 [...] Paula Hernandez M.D. LAB BLOOD ADD-ON [facility] [address] [place] [address], [facility] DTL [facility] [address] [place] [address] * (ABNORMAL) CBC with Differential, Blood (08/15/2023 [...] Carlos Alberto Henson M.D. LAB BLOOD ADD-ON [facility] [place] [address] [place] [address], [place] DTL [facility] [address] [place] [address] [facility] [address] [place] [address] * DX Abdomen 1 View (08/15/2023 1:19 [...] 08/15/2023 12:03 PM CDT Rae Gonzalez APRN, HISTOLOGY TECHNOLOGIST, DNAP LAB BLOO D NON ADD-ON [facility] [place] [address] [place] [address], [facility] [address] [place] [address] * Lactate, B - Intra-op (08/15/2023 11:56 AM CDT) Lactate, B 1.1 0.5 - 2.2 mmol/L 08/15/2023 12:06 PM CDT STMA Blood (Blood, Venous) 08/15/2023 11:56 AM CDT 08/15/2023 12:03 PM CDT Hayde Song M.D. LAB BLOOD NON ADD-O N Performing Organization Address City/[facility]/ZIP Co de Phone Number [facility] [place] [address] [place] [address], [facility] [address] [place] [address] * (ABNORMAL) Glucose, Whole Blood (08/15/2023 11:56 AM CDT) Glucose 144(H) 70 - 140 mg/dL 08/15/2023 12:06 PM CDT STMA Blood (Blood, Arterial Line) 08/15/2023 11:56 AM CDT 08/15/2023 12:03 PM CDT Hayde Song M.D. LAB BLOOD ADD-ON [facility] [place] [address] [place] [address], [facility] [address] [place] [address] * Potassium, Blood (08/15/2023 11:56 AM CDT) Potassium, B 4.3 3.6 - 5.2 mmol/L 08/15/2023 12:07 PM CDT STMA Blood (Blood, Arterial Line) 08/15/2023 11:56 AM CDT 08/15/2023 12:03 PM CDT Hayde Song M.D. LAB BLOOD NON ADD-O N [facility] [place] [address] [place] [address], [facility] [address] [place] [address] * Sodium, B (08/15/2023 11:56 AM CDT) Sodium, B 135 135 - 145 mmol/L 08/15/2023 12:06 PM CDT STMA Blood (Blood, Arterial Line) 08/15/2023 11:56 AM CDT 08/15/2023 12:03 PM CDT Hayde Song M.D. LAB BLOOD NON ADD-O N Performing Organization Address City/[facility]/ZIP Co de Phone Number [facility] [place] [address] [place] [address], [facility] [address] [place] [address] * (ABNORMAL) Calcium, Ionized (08/15/2023 11:56 AM CDT) Calcium, Ionized, B 4.53(L) 4.65 - 5.30 mg/dL 08/15/2023 12:07 PM CDT STMA Blood (Blood, Arterial Line) 08/15/2023 11:56 AM CDT 08/15/2023 12:03 PM CDT Hayde Song M.D. LAB BLOOD NON ADD-O N [facility] [place] [address] [place] [address], [facility] 200 [place] [address] * (ABNORMAL) Blood Gas with Coox, Arterial [...] Song M.D. LAB BLOOD NON ADD-O N [facility] [place] [address] [place] [address], [facility] 200 [place] [address] * FL Fluoro Less Than 1 Hour (08/15/2023 11:22 AM CDT) Narrative 152 [facility] - 08/15/2023 11:24 AM CDT This exam does not require a radiologist review or interpretation. Please refer to the patient's medical record on this date for clinical details. Boubacar Brock M.D. IMG FLUOROSCOPY PROC EDURES 152 [facility] LOS R[facility] * Patient Status (08/15/2023 10:28 AM CDT) Temperature 36.1 37.0 deg C 08/15/2023 10:28 AM CDT STMA FIO2 0.55 0.21=AIR 08/15/2023 10:28 AM CDT STMA Blood 08/15/2023 10:2 8 AM CDT 08/15/2023 10:28 AM CDT Rae Gonzalez BILINGUAL RECEPTIONIST, HISTOLOGY TECHNOLOGIST, DNAP LAB BLOO D NON ADD-ON Performing Organization Address City/[facility]/ZIP Co de Phone Number [facility] [place] [address] [place] [address] * Lactate, B - Intra-op (08/15/2023 10:28 AM CDT) Pathologist [facility] Lactate, B 1.1 0.5 - 2.2 mmol/L 08/15/2023 10:30 AM CDT STMA Blood (Blood, Venous) 08/15/2023 10:28 AM CDT 08/15/2023 10:28 AM CDT Hayde Song M.D. LAB BLOOD NON ADD-O N Performing Organization Address City/[facility]/ZIP Co de Phone Number [facility] [place] [address] 200 [place] [address] * Glucose, Whole Blood (08/15/2023 10:28 AM CDT) Glucose 134 70 - 140 mg/dL 08/15/2023 10:30 AM CDT STMA Blood (Blood, Arterial Line) 08/15/2023 10:28 AM CDT 08/15/2023 10:28 AM CDT Hayde Song M.D. LAB BLOOD ADD-ON [facility] [place] [address] [place], [place] [id number] [place] [address] [address] [place] [address] * Potassium, Blood (08/15/2023 10:28 AM CDT) Potassium, B 4.1 3.6 - 5.2 mmol/L 08/15/2023 10:31 AM CDT STMA Blood (Blood, Arterial Line) 08/15/2023 10:28 AM CDT 08/15/2023 10:28 AM CDT Hayde Song M.D. LAB BLOOD NON ADD-O N [facility] [place] [address] [place], [place] [id number] [place] [address] [address] [place] [address] * Sodium, B (08/15/2023 10:28 AM CDT) Sodium, B 135 135 - 145 mmol/L 08/15/2023 10:30 AM CDT STMA Blood (Blood, Arterial Line) 08/15/2023 10:28 AM CDT 08/15/2023 10:28 AM CDT Hayde Song M.D. LAB BLOOD NON ADD-O N [facility] [place] [address] [place] [address], [facility] [address] [place] [address] * (ABNORMAL) Calcium, Ionized (08/15/2023 10:28 AM CDT) Calcium, Ionized, B 4.25(L) 4.65 - 5.30 mg/dL 08/15/2023 10:31 AM CDT STMA Blood (Blood, Arterial Line) 08/15/2023 10:28 AM CDT 08/15/2023 10:28 AM CDT Hayde Song M.D. LAB BLOOD NON ADD-O N [facility] [place] [address] [place] [address], [facility] 200 [place] [address] * (ABNORMAL) Blood Gas with Coox, Arterial [...] Song M.D. LAB BLOOD NON ADD-O N [facility] [place] 200 [place] [address], [facility] STMA [facility] 200 [place] [address] * Bacteria / Yomaira Culture, Blood #2 (08/15/2023 3:33 AM CDT) Pathologist [facility] Bacteria/Leyla da Culture, Blood No growth after 5 days of incubation. 08/20/2023 6:02 AM CDT DTL Blood (Blood, Peripheral Draw) 08/15/2023 3:33 AM CDT 08/15/2023 5:58 AM CDT Comment:Specimen Source Site : Blood Narrative [facility] [place] - 08/20/2023 6:02 AM CDT Received Bactec aerobic and Bactec anaerobic bottles Carlos Alberto Henson M.D. LAB MICROBIOLOGY - G ENERAL ORDERABLES Performing Organization Address City/[facility]/ZIP Co de Phone Number [facility] [place] 200 [place] [address], [facility] 200 [place] [address] * (ABNORMAL) Basic Metabolic Panel (08/15/2023 3:31 [...] City/[facility]/[place] [address] * Bacteria / Yomaira Culture, Blood #1 (08/15/2023 3:31 AM CDT) [facility] Bacteria/Leyla da Culture, Blood No growth after 5 days of incubation. 08/20/2023 6:02 AM CDT DTL Blood (Blood, Peripheral Draw) 08/15/2023 3:31 AM CDT 08/15/2023 5:59 AM CDT Comment:Specimen Source Site : Blood Carlos Alberto Henson M.D. LAB MICROBIOLOGY - G ENERAL ORDERABLES Performing Organization Address City/[facility]/ZIP Co de Phone Number [facility] [place] 200 [place] [address], [place] [address] * (ABNORMAL) CBC with Differential, Blood (08/15/2023 3:30 AM CDT) Pathologist [facility] Hemoglobin 9.5(L) 13.2 - 16.6 g/dL 08/15/2023 [...] Carlos Alberto Henson M.D. LAB BLOOD ADD-ON [facility] [place] [address] [place] [address], [place] DTL [facility] [address] [place] [address] [facility] [address] [place] [address] * (ABNORMAL) CBC with Differential, Blood (08/14/2023 8:08 PM CDT) [facility] Hemoglobin 9.8(L) 13.2 - 16.6 g/dL [...] - 6.45 x10(9)/L 08/14/2023 8:14 PM CDT [facility] Lymphocytes 0.30(L) 0.95 - 3.07 x10(9)/L 08/14/2023 8:14 PM CDT ST[facility] Monocytes 0.56 0.26 - 0.81 x10(9)/L 08/14/2023 8:14 PM CDT ST[facility] Eosinophils <0.03 0.03 - 0.48 x10(9)/L 08/14/2023 8:14 PM CDT [facility] Basophils <0.03 0.01 - 0.08 x10(9)/L 08/14/2023 8:14 PM CDT STMA Blood (Blood, Venous) 08/14/2023 8:08 PM CDT 08/14/2023 8:12 PM CDT Carlos Alberto Henson M.D. LAB BLOOD ADD-ON [facility] [place] [address] [place] [address], [place] ST[place] [facility] [address] [place] [address] [facility] [address] [place] [address] * Transfuse Red Blood Cells : , [...] with Differential, Blood (08/14/2023 3:18 AM CDT) [facility] Hemoglobin 7.6(L) 13.2 - 16.6 g/dL [...] - 6.45 x10(9)/L 08/14/2023 3:23 AM CDT [facility] Lymphocytes 0.36(L) 0.95 - 3.07 x10(9)/L 08/14/2023 3:23 AM CDT [facility] Monocytes 0.98(H) 0.26 - 0.81 x10(9)/L 08/14/2023 3:23 AM CDT [facility] Eosinophils <0.03 0.03 - 0.48 x10(9)/L 08/14/2023 3:23 AM CDT [facility] Basophils <0.03 0.01 - 0.08 x10(9)/L 08/14/2023 3:23 AM CDT ST[facility] Blood (Blood, Venous) 08/14/2023 3:18 AM CDT 08/14/2023 3:21 AM CDT Carlos Alberto Henson M.D. LAB BLOOD ADD-ON [facility] [place] [address] [place] [address], [facility] STMA [facility] [address] [place] [address] [facility] [address] [place] [address] * (ABNORMAL) Basic Metabolic Panel (08/14/2023 3:18 [...] Carlos Alberto Henson M.D. LAB BLOOD ADD-ON [address] [address], [facility] [place] [address] * Type and Screen (with Reflex Antibody ID) (08/13/2023 7:35 PM CDT) Pathologist [facility] ABORh O Pos Not applicable 08/13/2023 7:58 PM CDT STRM Antibody Screen Negative Negative 08/13/2023 8:13 PM CDT STRM Type & Screen Expiration 08/16/2023 23:59 08/13/2023 7:58 PM CDT STRM Testing Location [place] DEFAULT 08/13/2023 7:39 PM CDT STRM Blood (Blood, Venous) 08/13/2023 7:35 PM CDT 08/13/2023 7:39 PM CDT Carlos Alberto Henson M.D. LAB BLOOD BANK TEST ORDERABLES Performing Organization Address [facility]/ZIP Co de Phone Number [address] [address], [facility] [address] * (ABNORMAL) Bacteria / Yomaira Culture, Blood #1 (08/13/2023 7:35 PM CDT) Pathologist [facility] Bacteria/Cand jessica Culture, Blood ESCHERICHIA COLI Growth after 11 Hours (A) 08/16/2023 11:17 AM CDT DTL Comment: 3 of 3 Bottles, Susceptibilities performed on another specimen [id number] Blood (Blood, Peripheral Draw) 08/13/2023 7:35 PM CDT 08/13/2023 8:15 PM CDT Comment:Specimen Source Site : Blood Carlos Alberto Henson M.D. LAB MICROBIOLOGY - G ENERAL ORDERABLES Performing Organization Address City/[facility]/ZIP Co de Phone Number [facility] [place] [address] [place] [address], [facility] DTL [facility] [address] [place] [address] * ECG 12 Lead (08/13/2023 7:02 PM CDT) Ventricular Rate ECG/Min 128 BPM MUSE TN Interval 138 ms MUSE QRSD Interval 64 ms MUSE QT Interval 304 ms MUSE QTC Interval 443 ms MUSE P [place] 45 degrees MUSE R [place] 34 degrees MUSE T Wave [place] 46 degrees MUSE 08/13/2023 7:02 PM CDT 08/13/2023 7:13 PM CDT Impressions MUSE - 08/13/2023 7:13 PM CDT Sinus tachycardia Otherwise normal ECG No previous ECGs available Reviewed by BETTY Walton Narrative Procedure Note Lucas Lee M.D. - 08/13/2023 IMPRESSION: Sinus tachycardia Otherwise normal ECG No previous ECGs available Reviewed by BETTY Walton Toby Wright ECG ORDERABLES Performing Organization Address City/[facility] Co de Phone Number MUSE NA [...] CDT Comment:Specimen Source Site : Blood Narrative [facility] - 08/16/2023 11:17 AM CDT Received [...] City/[facility]/[place] [address] * Magnesium (08/13/2023 5:27 PM CDT) Pathologist [facility] Magnesium, S 1.9 1.7 - 2.3 mg/dL 08/13/2023 6:12 PM CDT DTL Blood (Blood, Venous) 08/13/2023 5:27 PM CDT 08/13/2023 5:58 PM CDT Carlos Alberto Henson M.D. LAB BLOOD ADD-ON Performing Organization Address [facility] [place] [address] * (ABNORMAL) Hepatic Function Panel (08/13/2023 5:27 [...] Carlos Alberto Henson M.D. LAB BLOOD ADD-ON [facility] [place] [address] [place] [address], [facility] [address] [place] [address] * (ABNORMAL) Basic Metabolic Panel (08/13/2023 5:27 [...] City/[facility]/ZIP Co de Phone Number [facility] [place] [address] [place] [address], [facility] [address] [place] [address] * Prothrombin Time (PT) (08/13/2023 5:27 PM [...] City/[facility]/ZIP Co de Phone Number [facility] [place] [address] [place] [address], [facility] [address] [place] [address] * (ABNORMAL) CBC with Differential, Blood (08/13/2023 5:27 PM CDT) Pathologist [facility] Hemoglobin 10.0(L) 13.2 - 16.6 g/dL 08/13/2023 [...] Carlos Alberto Henson M.D. LAB BLOOD ADD-ON [facility] [place] [address] [place] [address], [facility] ST[facility] [address] [place] [address] [facility] [address] [place] [address] * (ABNORMAL) Dipstick, Urine (08/13/2023 5:07 PM [...] M.D. LAB URINE ORDERABLES Performing Organization Address [facility] Co de Phone Number [facility] [place] [address] [place] [address], [facility] [address] [place] [address] * Osmolality, Urine (08/13/2023 5:07 PM CDT) Osmolality, U 351 150 - 1150 mOsm/kg 08/13/2023 7:46 PM CDT DTL Urine 08/13/2023 5:07 PM CDT 08/13/2023 5:45 PM CDT Carlos Alberto Henson M.D. LAB URINE ORDERABLES Performing Organization Address City/[facility] Co de Phone Number [facility] [place] [address] [place] [address], [place] [address] * (ABNORMAL) Microscopic Manual (08/13/2023 5:07 PM [...] M.D. LAB URINE ORDERABLES Performing Organization Address City/[facility]/ZIP Co de Phone Number [facility] [place] [address] [place] [address] * pH, Random, Urine (08/13/2023 5:07 PM CDT) pH, Random, U 7.0 4.5 - 8.0 08/13/2023 7:46 PM CDT DT Urine 08/13/2023 5:07 PM CDT 08/13/2023 5:45 PM CDT Carlos Alberto Henson M.D. LAB URINE ORDERABLES Performing Organization Address [facility] Co de Phone Number [facility] [place] [address] [place] [address] * (ABNORMAL) Bacterial Culture, Aerobic + Susceptibility, [...] LAB MICROBIOLOGY - [facility] ORDERABLES [facility] [address] [place] [address], [facility] DTL [facility] [address] [place] [address] * (ABNORMAL) Urinalysis, with Microscopic: Urine, Midstream [...] CDT DTL Predicted 24 [place] [address](H) <229 mg/24 h 08/13/2023 8:50 PM CDT DTL Predicted Range [id number] mg/24 h 08/13/2023 8:50 PM CDT DTL Comment Micro done on <2.5 mL 08/13/2023 7:55 PM CDT DTL Urine (Urine, Midstream) 08/13/2023 5:07 PM CDT 08/13/2023 5:44 PM CDT Carlos Alberto Henson M.D. LAB URINE ORDERABLES [facility] [place] [address] [place] [address], [facility] [address] [place] [address] * Interpretation of Outside CT Abdomen and [...] Id'ed by SISI. [facility] Rx# [id number], filled 07/22/23. HAZARDOUS - Handle with care. Swallow whole. Do NOT crush, chew or open capsule. Given 08/26/2023 9:12 AM CDT 120 mg Given 08/25/2023 9:08 AM CDT 120 mg Given 08/24/2023 9:12 AM CDT 120 mg fat emulsion tpn-yfz-lproq & fish oil infusion 50 g (SMOFlipid) [...] Lactated Ringer's 1.5 mL/kg/hr ? 75 kg [place] weight (112.5 mL/hr, rounded to 113 mL/hr), intravenous, Continuous, Starting on Tue08/22/23 at 1030, Conditional Phase Pre-Gastrografin Administration. (Rate = 1.5 mL/kg/hr ideal body weight) Lactated Ringer's 0.75 mL/kg/hr ? 75 kg [place] weight (56.25 mL/hr, rounded to 56.3 mL/hr), [...] mL 3,000 mL, irrigation, Continuous, Starting on Sat /4/24 at 1700, FOR BLADDER IRRIGATION ONLY, NOT [...] 6:08 PM CDT 10 mEq 100 mL/hr New 08/23/2023 5:16 PM CDT 10 mEq 100 [...] 0019 (Not Given - Provider: Fatuma See R.NJonah - Reason: Patient/family refused)0639 (Given - Provider: [...] catheter 0615 (Given - Provider: Brittni Howe RJonahNJonah)1521 (Given - Provider: Mary Rosado R.N.) 0640 (Given - Provider: Fatuma See RJonahN.)1750 (Given - Provider: Antonia Salazar RJonahN.) 0627 (Given - Provider: Edith Simental RJonahN.)1600 (Due) clopidogreL tablet 75 mg (PLAVIX) 75 [...] Id'ed by SISI. [facility] Rx# [id number], filled 07/22/23. HAZARDOUS - Handle with care. Swallow whole. Do NOT crush, chew or open capsule. 911 (Given - Provider: Tayler Forrest R.N. - Comment: Pat Murray, -2nd RN) 907 (Given - Provider: Tayler Forrest R.N. - Comment: Pt 's own med from home) 911 (Given - Provider: Lupe Valdez R.N.) fat emulsion zmr-dgt-dpgyw & fish oil infusion 50 g (SMOFlipid) [...] RN)2125 (New Bag - Provider: Antonia Salazar RNarendra)2328 (Handoff - Provider: Edith Simental R.N. - Comment: w/ antonia MCCULLOUGH) 0407 (Rate/Dose Change - Provider: Edith Simental RJonahNJonah)0729 (Handoff - Provider: Lupe Valdez R.N. - Comment: Verified with JAMEL Sharma)1158 (Stopped - Provider: Lupe Valdez R.N.) Lactated Ringer's 1.5 mL/kg/hr ? 75 kg [place] weight (112.5 mL/hr, rounded to 113 mL/hr), intravenous, Continuous, Starting on Tue08/22/23 at 1030, Conditional Phase Pre-Gastrografin Administration. (Rate = 1.5 mL/kg/hr ideal body weight) Lactated Ringer's 0.75 mL/kg/hr ? 75 kg [place] weight (56.25 mL/hr, rounded to 56.3 mL/hr), [...] 1547 documented in this encounter Care Teams Foiling Machine Operator Relationship Specialty Start Date End Date Elsewhere, Pcp PCP - General Internal Medicine 08/13/23 documented as of this encounter
--- OUTSIDE RECORDS SUMMARY | 2023-11-18 12:41 | XMS_ITS | Encounter Summary ---
Author Organization [facility] Address [address] [place] [address] Care Team Providers Care Ob Tech Name Role Phone Elsewhere, Pcp Primary Care Provider Unavailabl e Encounter Details Date Type Department Care Team (Latest Contact Info) Description 08/13/2023 Intake [facility] Social History Tobacco Use Types Packs/Day Years Used Date Smoking Tobacco: Never Smokeless Tobacco: Never [facility] Utilities Answer Date Recorded [...] [facility] live 08/13/2023 Sex and Gender Information Value Date Recorded Sex Assigned at Not on file Gender Identity Not on file Sexual Orientation Not on file documented as of this encounter Plan of Treatment Upcoming Encounters Date Type Department Care Team (Latest Contact Info) Description 12/07/2023 10:15 AM CDT Procedure visit Department of Urology in [place] [address] [place] [address] Burke Strauss M.D. [facility] [place] [address] Discharge Disposition: Home or Self Care 12/07/2023 10:30 AM CDT Office Visit Department of Urology in [place] [address] [place] [address] Burke Strauss M.D. 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
--- OUTSIDE RECORDS SUMMARY | 2023-11-18 12:41 | XMS_ITS | Encounter Summary ---
Author Organization [facility] Address [address] [place] [address] Care Team Providers Care Paper Machine Tender Name Role Phone Elsewhere, Pcp Primary Care Provider Unavailabl e Encounter Details Date Type Department Care Team (Late st Contact Info) Description 08/13/2023 4:35 PM CDT Ancillary Procedure Department of Radiology in [place], [place] [address] [place] [address] Carlos Alberto Henson M.D. [address] [place] [address] Social History Tobacco Use Types Packs/Day Years Used Date Smoking Tobacco: Never Smokeless Tobacco: Never [facility] Utilities Answer Date Recorded In the past 12 months has e [employer], gas, oil, or water [employer] threatened to shut off services in your [...] CDT Procedure visit Department of Urology in [place] [address] [place] [address] Burke Strauss M.D. [address] [place] [phone] Discharge Disposition: Home or Self Care 12/07/2023 10:30 AM CDT Office Visit Department of Urology in [place], [place] [address] [place] [address] Burke Strauss M.D. [address] [place] [address] Discharge Disposition: Home or Self Care documented [...] on filedocumented in this encounter Care Teams Paper Machine Tender Relationship Specialty Start Date End Date Elsewhere, Pcp PCP - General Internal Medicine 08/13/23 documented as of this encounter
--- OUTSIDE RECORDS SUMMARY | 2023-11-18 12:41 | XMS_ITS | Encounter Summary ---
Author Organization [facility] Address [address] [place] [address] Care Team Providers Care Rectifying Operator Name Role Phone Elsewhere, Pcp Primary Care Provider Unavailabl e Encounter Details Date Type Department Care Team (Late st Contact Info) Description 08/15/2023 7:55 AM CDT - 08/15/2023 11:23 AM CDT Surgery RST ROMB MAIN OR [address] [place] [phone] Boubacar Brock M.D. [address] [place] [phone] Palliative EXPLORATORY LAPAROTOMY, CYSTOTOMY CLOSURE, RIGHT URETERAL STENT EXCHANGE Social History Tobacco Use Types Packs/Day Years Used Date Smoking Tobacco: Never Smokeless Tobacco: Never [facility] Utilities Answer Date Recorded In the [...] your living situation today? I have a [facility] place to live 08/13/2023 Sex [...] AM CDT DISCHARGE SUMMARY BRIEF OVERVIEW Hospital: [facility] Discharge Provider: Boubacar Brock M.D. Primary Team: [...] M.D.Wen, Lexiaochuan, M.D.Premo, Hayley, M.D.Botkin, Hannah, M.D. [facility] ROMB OR DISCHARGE DISPOSITION Home or Self Care [1] ACTIVE ISSUES REQUIRING FOLLOW UP OUTPATIENT FOLLOW UP Scheduled Appointments 08/26/2023 1:00 PM [facility] Radiology For appointment details refer to [...] he felt completely obstructed and presented to [facility]. [facility] Attempted Tabares insertion but bladder irrigation was unsuccessful on multiple attempts. Hung 1U pRBC's. Given some volume and transferred to [facility] ICU ICU Course Urology consulted [...] TO NUTRITION SUPPORT IP CONSULT TO MANAGER INTERFACE WOUND CARE CONDITION AT DISCHARGE stable Discharge [...] he felt completely obstructed and presented to [facility]. [facility] Attempted Tabares insertion but bladder irrigation was unsuccessful on multiple attempts. Hung 1U pRBC's. Given some volume and transferred to [facility] ICU ICU Course Urology consulted [...] Care Everywhere. * Bacitracin (On the skin) (Maldivian) * Cefdinir (By mouth) (Maldivian) * Trospium (By mouth) (Maldivian) documented in this encounter Medications at Time [...] [facility] - 08/26/2023 4:27 PM CDT 08/26/23 162 Reason Therapy Missed Reason Therapy Missed Receiving other care Attempted to see patient twice today. On 1st attempt patient was receiving blood transfusion and RNwas working on completing cares with him. On 2nd attempt patient was with another provider. * Chary Diamond M.A., O.T., [facility] - 08/26/2023 10:21 AM CDT Occupational Therapy [facility] Inpatient Treatment SUBJECTIVE Patient's Name: Kalen Vega Referring/Attending Provider: Boubacar Brock M.D. Reason for Referral: Occupational Therapy Evaluation and Treatment History of Present Illness: Kalen Vega is a 83 y.o. male who was admitted to [facility] in [place] on 08/13/2023 for Hematuria [R31.9]. Precautions Other Precautions: Abdominal, fall precautions, monitor tachycardia and hypertension Pain Assessment: Pain not reported during session. Subjective Comments: Agreeable to therapy session. Team Communication: The patient's status was discussed and coordination of care occurred with RN, Family/Caregiver, nurse tech Family/Caregiver Present: son and [id number] OBJECTIVE Vital Signs: Vitals not formally assessed during session. No concerns during chart review and the patient had nosigns or symptoms consistent with vital changes during therapy session. Outcome Measures: [facility] Inpatient Short Form: Putting on [...] at or below 17 Clinicians answer the [facility] Inpatient Short Form based on [...] through pant leg first. - Adaptive Equipment: Emd Special Education Teacher TOILETING - Assist Level: Maximal Assist - [...] (Edge of bed) - Assist Level: Modified [place] - Equipment: bed rail - Therapist Delivery: assessed, instructed, assisted - Adaptive Equipment: leg assurance engineer trialed ; however, patient able to [...] extremity (stiff knee) first. Recommended adaptive equipment: Emd Special Education Teacher. Toileting - Patient instructed on accurate positioning [...] maximal exertion Handouts provided: Bathroom Safety Equipment [id number], Techniques to Help You Save Energy [id number] Patient was left in bedside chair with [...] Usama 6C -room 121 ASSESSMENT / PLAN ASSEMBLER ENGINEannual giving manager met with patient and son Kar to inform them of home health care acceptance for PT/OT. Patient's son Kar and [id number] will provide transportation at the time of discharge. PLAN Patient to discharge home with home health care. Home Medical Care - Admitted Since 08/13/2023 Service Provider Selected Services Address Phone Fax Patient Preferred [facility] [address] [facility] [phone] -- Professor/Nurse Anesthetist: Ghazal NURSING: - Complete documentation in the Discharge Navigator including Nursing Report Info and Facility/NextLevel of Care Info - Call report and arrange for the patient's first visit - Send After Visit Summary and required packet of dismissal information with patient, including advance directive. PRIMARY SERVICE: - Please provide a non-[facility] home health order for: physical therapy and [...] be provided by family--patient's son Kar and [id number]. 3. recruiting coordinator recommended reaching out to family, friends, and neighbors for assistance. 4. recruiting coordinator provided information regarding the dismissal process. Damaris [...] Reviewed with patient #1 Hematuria Please page [facility] ([phone]) or [facility] ([phone]) Nutrition Support Service pager with questions. * Emeterio Buchanan P.T., D.P.T., [facility] - 08/25/2023 9:35 AM CDT Physical Therapy Inpatient Treatment SUBJECTIVE Patient's Name: Kalen Vega Referring/Attending Provider: Boubacar Brock M.D. Reason for Referral: Physical Therapy Evaluate and Treat History of Present Illness: Kalen Vega is a 83 y.o. male who was admitted to [facility] in [place] on 08/13/2023 for Hematuria [R31.9] Precautions Other [...] throughout session; within normal ranges. Outcome Measures: [facility] Inpatient Short Form: -[facility] Basic Mobility (V.2) How much help from [...] 3-5 steps with a railing?: A Little AM-[facility] Basic Mobility (V.2) Raw Score: 18 -[facility] Basic Mobility (V.2) Standardized Score: 41.05 Interpretation: Based on scoring guidelines using the raw score value: Those going to home had an average score at or above 18 Those going to facility had an average score at or below 17 Clinicians answer the -[facility] Inpatient Short Form based on observed patient [...] 83 y.o. male who was admitted to [facility] in [place] on 08/13/2023 for Hematuria [R31.9]. Precautions Other Precautions: Abdominal, fall precautions, monitor tachycardia and hypertension Pain Assessment: Pain not reported during session. Subjective Comments: Agreeable to therapy session. Team Communication: The patient's status was discussed and coordination of care occurred with RN, PT OBJECTIVE Vital Signs: Vitals monitored throughout session; within normal ranges. Outcome Measures: [facility] Inpatient Short Form: Putting on [...] at or below 17 Clinicians answer the [facility] Inpatient Short Form based on [...] including figure four technique. Recommended adaptive equipment: Emd Special Education Teacher and Sock Aid. Toileting - Patient instructed [...] and modification tools as needed including leg assurance engineer and/or bed adjustments. Bathroom DME: - [...] in place draining clear yellow urine I/O ([id number]): Fifty-five cc serosanguineous from the drain 1 [...] have him follow up with his local park maintainer Comorbidities: --history of DVT status post IVC [...] discussed with Dr. Venegas, chief urology resident clinical education consultant. Pager during business hours: [phone] Pager after hours: [phone] * Emeterio Buchanan P.T., D.P.T., [facility] - 08/24/2023 10:46 AM CDT Physical Therapy Inpatient Treatment SUBJECTIVE Patient's Name: Kalen Vega Referring/Attending Provider: Boubacar Brock M.D. Reason for Referral: Physical Therapy Evaluate and Treat History of Present Illness: Kalen Vega is a 83 y.o. male who was admitted to [facility] in [place] on 08/13/2023 for Hematuria [R31.9] Precautions Other [...] %, and O2flow: Room air Outcome Measures: [facility] Inpatient Short Form: -[facility] Basic Mobility (V.2) How much help from [...] 3-5 steps with a railing?: A Lot -[facility] Basic Mobility (V.2) Raw Score: 17 -[facility] Basic Mobility (V.2) Standardized Score: 39.67 Interpretation: Based on scoring guidelines using the raw score value: Those going to home had an average score at or above 18 Those going to facility had an average score at or below 17 Clinicians answer the -[facility] Inpatient Short Form based on observed patient [...] baseline. PT Goal #2: Patient will perform ixn-cq-xnzrd transfer with modified independence and least restrictive [...] open bladder repair, R ureteral stent exchange 5/6, R DVT on LEUS 08/16 PM - [...] Total Kcal/day: 1370 based on 84 % [place] Non-standard additives: K 80 mEq Phos 30 [...] magnesium, phosphorus tomorrow. #1 Hematuria Please page [facility] ([phone]) or [facility] ([phone]) Nutrition Support Service pager with questions. * [...] catheter in place draining light smith I/O ([id number]): Forty-two cc serosanguineous from the drain 2.2 [...] 2.5 mg BID eliquis initiated 08/15 per [facility] med curbside recs --transition from [...] have him follow up with his local park maintainer Comorbidities: --history of DVT status post IVC [...] discussed with Dr. Venegas, chief urology resident clinical education consultant. Pager during business hours: [phone] Pager after hours: [phone] * Deanne Mike L.G.STimi, M.S.W. - 08/23/2023 11:25 AM CDT SUBJECTIVE Social Work spoke with [facility]. They cannot provide usp at this time. [...] date of 08/24/23-08/26/23. Referrals sent: [facility] [place] - [facility] (out of service area) [facility] ASSESSMENT / PLAN ASSESSMENT Patient has robust family support including a son living with him. PLAN Patient desires home health care through [facility]. Social Work will continue to follow to provide support. Social Work will continue to assist with discharge needs. Shorty Sun, M.S.W. 08/23/23 * Jazmine Benítez R.N., C.W.C.N. - 08/23/2023 11:10 AM CDT [facility] Wound RN consulted to assess Kalen [...] stent and hematuria who is transferred from [facility] with 3 days of hematuria and [...] None Unable to Measure Y *Wound Bed Closed;[place];Red Tissue Exposed None Odor None *Exudate Amount [...] 30 minutes > 30 minutes Ongoing management Nursing;Wound/professional system administrator Partial head to toe skin assessment completed [...] AM CDT * Emeterio Buchanan P.T., D.P.T., [facility] - 08/23/2023 11:02 AM CDT Physical Therapy Inpatient Treatment SUBJECTIVE Patient's Name: Kalen Vega Referring/Attending Provider: Boubacar Brock M.D. Reason for Referral: Physical Therapy Evaluate and Treat History of Present Illness: Kalen Vega is a 83 y.o. male who was admitted to [facility] in [place] on 08/13/2023 for Hematuria [R31.9] Precautions Other [...] 3-5 steps with a railing?: A Lot -[facility] Basic Mobility (V.2) Raw Score: 17 -[facility] Basic Mobility (V.2) Standardized Score: 39.67 Interpretation: Based on scoring guidelines using the raw score value: Those going to home had an average score at or above 18 Those going to facility had an average score at or below 17 Clinicians answer the -[facility] Inpatient Short Form based on observed patient [...] baseline. PT Goal #2: Patient will perform utp-lx-chjih transfer with modified independence and least restrictive [...] D.P.T., [facility] * Demarco Salazar Pharm.DJonah, R.Ph., [facility] - 08/23/2023 10:19 AM CDT Pharmacist [...] Total Kcal/day: 1370 based on 84 % [place] Non-standard additives: MAX chloride Thiamine 100 mg [...] magnesium, phosphorus tomorrow. #1 Hematuria Please page [facility] ([phone]) or [facility] ([phone]) Nutrition Support Service pager with questions. * Ivy Hernandez O.T. - 08/23/2023 8:30 AM CDT Occupational Therapy [facility] Inpatient Treatment SUBJECTIVE Patient's Name: Kalen Vega Referring/Attending Provider: oBubacar Brock M.D. Reason for Referral: Occupational Therapy Evaluation and Treatment History of Present Illness: Kalen Vega is a 83 y.o. male who was admitted to [facility] in [place] on 08/13/2023 for Hematuria [R31.9]. Precautions Other Precautions: Abdominal, fall precautions, monitor tachycardia and hypertension Pain Assessment: Pain not reported during session. Subjective Comments: Agreeable to therapy session. Team Communication: The patient's status was discussed and coordination of care occurred with RN, PT OBJECTIVE Vital Signs: Vitals monitored throughout session; within normal ranges. 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 [facility] Summary: Diet: NPO, TPN Activity: [...] discussed with Dr. Venegas, chief urology resident clinical education consultant. Pager during business hours: [phone] Pager after hours: [phone] * Chary Diamond M.A., O.T., BCP - [...] [facility] Social Work sent referral. OBJECTIVE Patient is anticipated to remain at [place] for 3-5 days. Referrals sent: [facility] Health ASSESSMENT / PLAN ASSESSMENT Patient has robust family support including a son living with him. PLAN Patient desires home health care through [facility]. Social Work will continue to follow to provide support. Social Work will continue to assist with discharge needs. Swetha Sun., M.S.W. 08/22/23 * DewayneEmeterio P.T., Craig.P.T., [facility] - 08/22/2023 2:27 PM CDT Physical Therapy Inpatient Treatment SUBJECTIVE Patient's Name: Kalen Vega Referring/Attending Provider: Boubacar Brock M.D. Reason for Referral: Physical Therapy Evaluate and Treat History of Present Illness: Kalen eVga is a 83 y.o. male who was admitted to [facility] in [place] on 08/13/2023 for Hematuria [R31.9] Precautions Other [...] 3-5 steps with a railing?: A Lot -[facility] Basic Mobility (V.2) Raw Score: 17 -[facility] Basic Mobility (V.2) Standardized Score: 39.67 Interpretation: Based on scoring guidelines using the raw score value: Those going to home had an average score at or above 18 Those going to facility had an average score at or below 17 Clinicians answer the [facility] Inpatient Short Form based on [...] baseline. PT Goal #2: Patient will perform zkf-ro-rdksh transfer with modified independence and least restrictive [...] Total Kcal/day: 1370 based on 84 % [place] Non-standard additives: MAX chloride Thiamine 100 mg [...] CHIEF SERVICE PROGRESS NOTE SUBJECTIVE Kalen Craig Gary was seen by the team during [...] place draining light smith colored urine I/O ([id number]): CBI on slow drip 75 cc serosanguineous [...] 2.5 mg BID eliquis initiated 08/15 per [facility] med curbside recs --transition from [...] have him follow up with his local park maintainer Comorbidities: --history of DVT status post IVC [...] Held Home Meds: None Consults: TPN, IR Paual Hernandez M.D. 08/22/2023 Please page the Urology Chief Service with questions or concerns. Patient seen and discussed with Dr. Venegas, chief urology resident clinical education consultant. Pager during business hours: [phone] Pager after hours: [phone] * Qamar Jim, Pharm.D., R.Ph. - 08/21/2023 [...] place draining clear smith colored urine I/O ([id number]): 1800 cc urine output 75 cc serosanguineous [...] have him follow up with his local park maintainer Comorbidities: --history of DVT status post IVC [...] discussed with Dr. Venegas, chief urology resident clinical education consultant. Pager during business hours: [phone] Pager after hours: [phone] * Lizette Harvey M.D. - 08/20/2023 8:08 AM CDT UROLOGY CHIEF SERVICE PROGRESS NOTE SUBJECTIVE Kalen D Braucher was seen by the team during morning [...] draining clear thin merlot colored urine I/O ([id number]): 240 cc p.o. intake 760 cc urine [...] 2.5 mg BID eliquis initiated 08/15 per [facility] med curbside recs --transition from [...] have him follow up with his local park maintainer Comorbidities: --history of DVT status post IVC [...] Held Home Meds: None Consults: TPN Lizette Whittington-Bolder, M.D. 08/20/2023 Please page the Urology Chief Service with questions or concerns. Pager during business hours: [phone] Pager after hours: [phone] * Qamar Jim, PharmJonahDJonah, R.Ph. - 08/20/2023 [...] Jim, PharmPerla., R.Ph. * Lisa Seaman, O.T., [facility] - 08/19/2023 2:26 PM CDT Occupational Therapy [facility] Hospital Inpatient Treatment SUBJECTIVE Patient's Name: Kalen Vega Referring/Attending Provider: Boubacar Brock M.D. Reason for Referral: Occupational Therapy Evaluation and Treatment History of Present Illness: Kalen Vega is a 83 y.o. male who was admitted to [facility] in [place] on 08/13/2023 for Hematuria [R31.9]. Precautions Other Precautions: Abdominal, fall precautions, monitor tachycardia and hypertension Pain Assessment: Pain not reported during session. Subjective Comments: Patient greeted in chair and agreeable to therapy session. Team Communication: The patient's status was discussed and coordination of care occurred with RN OBJECTIVE Vital Signs: Vitals monitored throughout session; within normal ranges. Outcome Measures: [facility] Inpatient Short Form: Putting on [...] at or below 17 Clinicians answer the [facility] Inpatient Short Form based on [...] about patient's nutritional care please contact pager [phone] on weekdays or [phone] on weekends/holidays. NUTRITION ASSESSMENT: Mr. Vega is [...] care everywhere) ESTIMATED NEEDS: Total Calorie Needs: 4899-5731 calories/day Method to Estimate Energy Needs: kcal/kg [...] 83 y.o. male who was admitted to [facility] in [place] on 08/13/2023 for Hematuria [R31.9] Precautions Other [...] mmHg O2: 96% Room air Outcome Measures: [facility] Inpatient Short Form: -[facility] Basic Mobility (V.2) How much help from [...] 3-5 steps with a railing?: A Little -[facility] Basic Mobility (V.2) Raw Score: 18 -[facility] Basic Mobility (V.2) Standardized Score: 41.05 Interpretation: Based on scoring guidelines using the raw score value: Those going to home had an average score at or above 18 Those going to facility had an average score at or below 17 Clinicians answer the [facility] Inpatient Short Form based on [...] Ongoing PT Goal #2: Patient will perform txg-jc-zqqqu transfer with modified independence and least restrictive [...] in place draining clear pink urine I/O ([id number]): 370 p.o. intake 1 L urine output [...] 2.5 mg BID eliquis initiated 08/15 per [facility] med curbside recs --transition from [...] have him follow up with his local park maintainer Comorbidities: --history of DVT status post IVC [...] questions or concerns. Pager during business hours: [phone] Pager after hours: [phone] * Lisa Seaman, O.TJonah, [facility] - 08/18/2023 11:15 AM CDT Occupational Therapy [facility] Inpatient Treatment SUBJECTIVE Patient's Name: Kalen Vega Referring/Attending Provider: Boubacar Brock M.D. Reason for Referral: Occupational Therapy Evaluation and Treatment History of Present Illness: Kalen Vega is a 83 y.o. male who was admitted to [facility] in [place] on 08/13/2023 for Hematuria [R31.9]. Precautions Other [...] pressure: 168/97 - nurse notified Outcome Measures: [facility] Inpatient Short Form: Putting on [...] at or below 17 Clinicians answer the [facility] Inpatient Short Form based on [...] doffing over it last. Recommended adaptive equipment: Emd Special Education Teacher and Sock Aid. Patient was left in bedside chair, with nursing/TUBE BENDER HAND at end of session with call [...] 83 y.o. male who was admitted to [facility] in [place] on 08/13/2023 for Hematuria [R31.9] Precautions Other [...] at or below 17 Clinicians answer the [facility] Inpatient Short Form based on [...] following coordination of care occurred with the child welfare caseworker/Caregiver Present: No Patient was left in bedside [...] Progressing PT Goal #2: Patient will perform fmk-fx-hvksk transfer with modified independence and least restrictive [...] Scott Pina P.T., D.P.T. * Aziza Cortez, Mireille.D., R.Ph. - 08/18/2023 7:59 AM CDT Pharmacist Progress Note Reason for admission: hematuria s/p open bladder repair, R ureteral stent exchange 5/6, R DVT on LEUS 08/16 PM - [...] in place draining clear pink urine I/O ([id number]): 1.2 L p.o. intake 1 L urine [...] diet later today follow up vascular medicine [facility] Summary: Diet: currently limited clears Activity: Ad kong DVT PPX: heparin drip GI PPX: Pantoprazole Bowel Regimen:N/A IVF: none Abx/Microbiology: Ceftriaxone Pain Control: Tylenol, oxycodone 08/18. Scheduled trospium Home Meds Resumed: Metoprolol, tamsulosin, rosuvastatin Held Home Meds: None Consults: None Paula Hernandez M.D. 08/18/2023 6:02 AM CDT Please page the Urology Chief Service with questions or concerns. Pager during business hours: [phone] Pager after hours: [phone] * Tayler Greenwood M.D., M.Ed. - 08/17/2023 [...] Tayler Greenwood MD, MEd * Alia Ruelas, D., R.Ph., [facility] - 08/17/2023 6:08 PM CDT Heparin [...] the patient follow up with his primary park maintainer at discharge we will which we will [...] Lactated Ringer's * Lisa Seaman, O.T., [facility] - 08/17/2023 10:47 AM CDT Occupational Therapy [facility] Inpatient Treatment SUBJECTIVE Patient's Name: Kalen Vega Referring/Attending Provider: Boubacar Brock M.D. Reason for Referral: Occupational Therapy Evaluation and Treatment History of Present Illness: Kalen Vega is a 83 y.o. male who was admitted to [facility] in [place] on 08/13/2023 for Hematuria [R31.9]. Precautions Other [...] at or below 17 Clinicians answer the AM-[facility] Inpatient Short Form based on observed patient [...] in place draining clear pink urine I/O ([id number]): NG tube 200 cc Two hundred sixty-five [...] questions or concerns. Pager during business hours: [phone] Pager after hours: [phone] * Audi De Luna P.T., D.P.T. - [...] in place draining clear pink urine I/O ([id number]): NG tube 200 cc Two hundred sixty-five [...] questions or concerns. Pager during business hours: [phone] Pager after hours: [phone] * Paula Hernandez M.D. - 08/15/2023 9:09 AM CDT PROGRESS NOTE: No events. AFVSS. Pain controlled. No flatus. No further emesis overnight. Abdomen more distended than yesterday but remained soft, tender to deep palpation only, no rebound. Twenty-four Cymro Alcock three-way catheter remains off CBI, draining [...] above was discussed with Dr. Brock, urology benefits consultant on-call who is in agreement with [...] Family to bring his home enzalutamide from [place] Irvin Franco Pharm.D., R.Ph. * Jakob De Paz M.D. - 08/14/2023 11:34 AM CDT PROGRESS NOTE: No events. AFVSS. Pain controlled. No flatus. Nauseous and had 2 episodes of emesis. Abdomen more distended than yesterday but remained soft, tender to deep palpation only, no rebound. Twenty-four Cymro Alcock three-way catheter remains off CBI, draining [...] above was discussed with Dr. Brock, urology benefits consultant on-call who is in agreement with [...] Patient discussed with Dr. Sylvester. Page CCM3 [id number] Carlos Alberto Henson M.D. PGY-1 CCM 3 [...] who have asked we place a 24 Cymro 3-way urinary catheter pending evaluation. We will [...] stent and hematuria who is transferred from [facility] ED with 3 days of [...] him to present to local hospital in [place]. OSH Course: His hemoglobin was in the [...] Insecurity: No Food Insecurity (02/16/2022) Received from [facility], [facility] Food Insecurity Worried About Running Out of Food in the Last Year: 1 Transportation Needs: No Transportation Needs (02/16/2022) Received from [facility] [facility], [facility] Transportation Needs Lack of Transportation (Medical): 1 Housing Stability: Low Risk (02/16/2022) Re[facility] from [facility], [facility] Housing Stability Unable to Pay [...] Dr. Sylvester and Dr. Rodriguez. Page CCM3 [id number] Carlos Alberto Henson M.D. PGY-1 CCM 3 [...] As expected PRIMARY PROCEDURALIST FAY Cerna MD [phone] ASSISTANTS none COMPLICATIONS None. DRAINS None. IMPLANTS [...] peripheral vein targets. Ultrasound used for assessment: Company Fit Provider contacted (include name): Uro [...] STENT EXCHANGE; Surgeon: Boubacar Brock M.D.; Location: [facility] ROMB OR FAMILY HISTORY No family [...] 14 -- AST U/L 25 -- Radiology: @[id number]@ [place] Assessment: No data to display ASSESSMENT / PLAN #1 Hematuria ASSESSMENT Currently we are asked to visit with Mr. Vega for consideration of parenteral nutrition. Nutrition Needs: Height: 180 cm Admission Weight: 91.2 kg (08/13/2023) Current Weight: 90.2 kg BMI (Calculated): 27.8 kg/m?? Total Calorie Needs: 9008-7254 calories/day Method to Estimate Energy Needs: [place] ( ) Weight Used for Equation Calculations: [...] on electrolytes Please call NSS pager at [phone] at [facility] or [phone] at [facility] with any additional questions. * Gilbert Johnson M.D. - 08/20/2023 8:05 AM CDTAssociated Order(s): Nutrition support service consult (hospital) SUBJECTIVE Nutrition support service consult ([facility]) Referring Provider: Lizette Harvey M.D. REASON FOR [...] values in this interval not displayed. Radiology: @[email or web address]@ Swallow Assessment: No data to display ASSESSMENT / PLAN #1 Hematuria ASSESSMENT Currently we are asked to visit with Mr. Vega for consideration of parenteral nutrition. Nutrition Needs: Height: 180 cm Admission Weight: 91.2 kg (08/13/2023) Current Weight: 90.2 kg BMI (Calculated): 27.8 kg/m?? Total Calorie Needs: 3904-3950 calories/day Method to Estimate Energy Needs: kcal/kg [...] on electrolytes Please call NSS pager at [phone] at [facility] or [phone] at [facility] with any additional questions. BILLING/CODING Total [...] stent along with other stents and apparently park maintainer in the past I recommended indefinite dual [...] 20 mL/hr, intravenous, Continuous, Frieda Garner APRN, MANAGER VALUATION, Last Rate: 20 mL/hr at 08/15/23 1459, [...] but he can discuss this with his park maintainer at home. We need to balance transfusion needs for continued bleedingand risk of recurrent GA if not on Plavix-coronary stents were 6 [...] 83 y.o. male who was admitted to [facility] in [place] on 08/13/2023 for Hematuria [R31.9]. Relevant Medical History: Kalen Vega is a 83 y.o. 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 Pain Assessment: Pain not reported during [...] 3-5 steps with a railing?: A Lot -[facility] Basic Mobility (V.2) Raw Score: 17 -[facility] Basic Mobility (V.2) Standardized Score: 39.67 Interpretation: Based on scoring guidelines using the raw score value: Those going to home had an average score at or above 18 Those going to facility had an average score at or below 17 Clinicians answer the [facility] Inpatient Short Form based on [...] following coordination of care occurred with the child welfare caseworker/Caregiver Present: SonFavio Patient was left in bedside [...] 83 y.o. male who was admitted to [facility] in [place] on 08/13/2023 for Hematuria with cystotomy and [...] Min assist for mobility. Required assist for [id number] for force generation and is generally standby [...] Ongoing PT Goal #2: Patient will perform fpo-iw-[id number] transfer with modified independence and least restrictive [...] Total Treatment Time (min): 40 min Matthieu Reynoso SPT Associated attestation - Fidencio Caban P.T., D.P.T. - 08/17/2023 5:45 PM CDT This therapist has reviewed all documentation and supervised today???s session. The therapist agrees with the plan developed in collaboration with the patient. * Lisa Seaman O.T., MOT - 08/16/2023 10:01 AM CDT Occupational Therapy [facility] Inpatient Evaluation/Treatment SUBJECTIVE Patient's Name: Kalen Vega Referring/Attending Provider: Boubacar Brock M.D. Reason for Referral: Occupational Therapy Evaluation and Treatment PERTINENT MEDICAL / SURGICAL HISTORY: Kalen Vega has no past medical history on file. Kalen Vega has no past surgical history on file. History of Present Illness: Kalen Vega is a 83 y.o. male who was admitted to [facility] in [place] on 08/13/2023 for Hematuria [R31.9]. Relevant Medical [...] with RN, PT Family/Caregiver Present: Son and gktxuupt-cz-ypt. Home Living and Equipment: Lives with: Spouse/Significant [...] walker, Single point cane Adaptive Equipment Owned: Emd Special Education Teacher, Long Handled Shoe Horn Other DME Owned: Regular flat bed Prior Level of Function and Mobility: Basic Activities of Daily Living: Independent Instrumental Activities of Daily Living: Required Assistance: Laundry son assists with laundry and cooking Functional Mobility: Independent Driving: Yes Occupational Role: Retired Leisure Interests: watch movies, plays [employer] train, meets friends for breakfast. Patient/Caregiver Goals: [...] Wears glasses all the time Outcome Measures: [facility] Inpatient Short Form: Putting on [...] at or below 17 Clinicians answer the [facility] Inpatient Short Form based on [...] Lisa Seaman O.T., MOT * Sivakumar Parham L.G.S.WJonah, M.S.W. - 08/14/2023 9:59 AM CDTAssociated Order(s): [...] all are a great support. 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 Patient expressed understanding and was agreeable to [...] engaged in conversation with his family when rn social services entered the room. He was engaged in [...] locally at approximately 3:00 a.m. a 22 Cymro three-way catheter was placed and CBI wasinitiated. Unfortunately he clotted off the catheter multiple times despite manual irrigations, started to develop hypotension and tachycardia [facility] He relays the above history [...] non-distended, non-peritonitic Extremities: No edema : 22 Cymro three-way Tabares catheter draining a minimal amount [...] urinary retention Given his non draining 22 Cymro three-way catheter the Urology techs and I subsequently exchanged this for a 24 Cymro three-way Alcock in the usual sterile fashion. [...] to follow [place] [phone] with questions or concerns Sixto Cain M.D. [...] peripheral vein targets. Ultrasound used for assessment: Company Fit Provider contacted (include name): Uro [...] or other central line. * Jose Haro, M.SJonahNJonah, R.N. - 08/14/2023 12:23 PM CDT Patient Transfer Note Patient transferred to: [facility] Room: [facility] Accompanied by: JAMEL Garcia Report called? YES [...] signs? YES * Sixto Teague R.R.T., L.R.T., FIELD COORDINATOR-[facility] - 08/14/2023 7:00 AM CDT [...] the last 24hours. 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 His existing 24 Cymro three-way Tabares catheter was noted to be [...] additional tissue for additional coverage. A 24 Cymro three-way catheter was placed with 15 cc in the balloon. This irrigated to light clear pink. A 15 Cymro YARELI drain wasplaced into the pelvis exiting left lower quadrant. The fascia was closed with interrupted and tatobu-bd-[id number] 0 PDS. Fat was approximated using 3-0 [...] RN, CPN, CCDS, CCS, CRC Clinical Documentation Aircraft Avionics Technician Query created by: ELMER Barker, RN, CPN, [...] stent and hematuria who is transferred from [place] ED with 3 days of hematuria & [...] RN, CPN, CCDS, CCS, CRC Clinical Documentation Aircraft Avionics Technician Query created by: ELMER Barker, RN, CPN, [...] he felt completely obstructed and presented to [place] ED. [place] Course Attempted Tabares insertion but bladder irrigation was unsuccessful on multiple attempts. Hung 1U pRBC's. Given some volume and transferred to [facility] ICU ICU Course Urology consulted [...] CDT Procedure visit Department of Urology in [place] [address] [place] [address] Burke Strauss M.D. [address] [place] [phone] Discharge Disposition: Home or Self Care 12/07/2023 10:30 AM CDT Office Visit Department of Urology in [place] [address] [place] [address] Burke Strauss M.D. [facility] [place] [address] Discharge Disposition: Home or Self Care Pending [...] 08/26/2023 7:16 AM CDT STRM Testing Location [place] DEFAULT 08/26/2023 6:57 AM CDT STRM Blood (Blood, Venous) 08/26/2023 6:50 AM CDT 08/26/2023 6:57 AM CDT Paula Hernandez M.D. LAB BLOOD BANK TEST ORDERABLES Performing Organization Address [facility]/ZIP Co de Phone Number [facility] [address] [place] [address], [facility] STRM [facility] [address] [place] [address] * (ABNORMAL) CBC without Differential (08/26/2023 3:20 [...] CDT Corin Ring M.D. LAB BLOOD ADD-ON [facility] [address] [place] [address], [place] DTL [facility] [address] [place] [address] * Magnesium (08/26/2023 3:20 AM CDT) Magnesium, S 2.1 1.7 - 2.3 mg/dL 08/26/2023 4:04 AM CDT DTL Blood (Blood, Venous) 08/26/2023 3:20 AM CDT 08/26/2023 3:50 AM CDT Boubacar Brock M.D. LAB BLOOD ADD-ON [facility] [address] [place] [address], [facility] [address] [place] [address] * (ABNORMAL) Renal Function Panel (08/26/2023 3:20 [...] LAB BLOOD ADD-ON Performing Organization Address City/[facility] Co de Phone Number [facility] [address] [place], [place] [address] [place] [address] [address] [place] [address] * Heparin Anti-Xa Assay (08/26/2023 3:20 AM [...] BLOOD NON ADD -ON Performing Organization Address [facility]/ZIP Co de Phone Number [facility] [address] [place] [address], [facility] [address] [place] [address] * (ABNORMAL) CBC without Differential (08/25/2023 3:24 [...] CDT Corin Ring M.D. LAB BLOOD ADD-ON [address] [address], [facility] [address] [address] * (ABNORMAL) Renal Function Panel (08/25/2023 3:24 [...] CDT Boubacar Brock M.D. LAB BLOOD ADD-ON [facility] [address] [place], [place] [address] [place] [address] [address] [place] [address] * Magnesium (08/25/2023 3:24 AM CDT) Magnesium, S 2.2 1.7 - 2.3 mg/dL 08/25/2023 4:36 AM CDT DTL Blood (Blood, Venous) 08/25/2023 3:24 AM CDT 08/25/2023 4:19 AM CDT Boubacar Brock M.D. LAB BLOOD ADD-ON [facility] [address] [place] [address], [facility] [address] [place] [address] * Heparin Anti-Xa Assay (08/25/2023 3:24 AM [...] Boubacar Brock M.D. [place] [address], [facility] [place] [address] * (ABNORMAL) CBC without Differential (08/24/2023 5:28 AM CDT) [facility] Hemoglobin 8.1(L) 13.2 - 16.6 g/dL [...] LAB BLOOD ADD-ON Performing Organization Address City/[facility]/ZIP Co de Phone Number [facility] [address] [place] [address], [facility] [address] [place] [address] * Magnesium (08/24/2023 5:28 AM CDT) Magnesium, S 2.3 1.7 - 2.3 mg/dL 08/24/2023 6:19 AM CDT DTL Blood (Blood, Venous) 08/24/2023 5:28 AM CDT 08/24/2023 6:00 AM CDT Boubacar Brock M.D. LAB BLOOD ADD-ON Performing Organization Address [facility] Co de Phone Number [facility] [address] [place] [address], [place] [address] * (ABNORMAL) Renal Function Panel (08/24/2023 5:28 [...] CDT Boubacar Brock M.D. LAB BLOOD ADD-ON [facility] [address] [place] [address], [facility] [address] [place] [address] * Heparin Anti-Xa Assay (08/24/2023 5:28 AM [...] LAB BLOOD NON ADD-ON Performing Organization Address City/[facility]/ZIP Co de Phone Number [facility] [address] [place] [address] * (ABNORMAL) Potassium (08/23/2023 9:58 PM CDT) Potassium, S 3.5(L) 3.6 - 5.2 mmol/L 08/23/2023 10:45 PM CDT DTL Blood (Blood, Venous) 08/23/2023 9:58 PM CDT 08/23/2023 10:30 PM CDT Boubacar Brock M.D. LAB BLOOD ADD-ON Performing Organization Address City/[facility]/ZIP Co de Phone Number [facility] [address] [place] [address] * (ABNORMAL) Phosphorus Inorganic (08/23/2023 9:58 PM CDT) Phosphorus (Inorganic), S 2.1(L) 2.5 - 4.5 mg/dL 08/23/2023 10:45 PM CDT DT Blood (Blood, Venous) 08/23/2023 9:58 PM CDT 08/23/2023 10:30 PM CDT Paula Hernandez M.D. LAB BLOOD ADD-ON [facility] [address] [place] [address] * Heparin Anti-Xa Assay (08/23/2023 11:37 AM [...] Boubacar Brock M.D. LAB BLOOD NON ADD-ON [facility] [address] [facility] [address] [place] [address] * (ABNORMAL) CBC without Differential (08/23/2023 3:42 AM CDT) [facility] Hemoglobin 8.3(L) 13.2 - 16.6 g/dL [...] M.D. LAB BLOOD ADD-ON Performing Organization Address [facility] Co de Phone Number [facility] [address] [place], [place] [address] [place] [address] [facility] [address] [place] [address] * Triglycerides (08/23/2023 3:42 AM CDT) Triglycerides [...] M.D. LAB BLOOD ADD-ON Performing Organization Address [facility] Co de Phone Number [facility] [address] [place] [address], [facility] [address] [place] [address] * Magnesium (08/23/2023 3:42 AM CDT) Magnesium, S 2.2 1.7 - 2.3 mg/dL 08/23/2023 4:50 AM CDT DTL Blood (Blood, Venous) 08/23/2023 3:42 AM CDT 08/23/2023 4:19 AM CDT Boubacar Brock M.D. LAB BLOOD ADD-ON [facility] [address] [place] [address], [facility] DTL [facility] [address] [place] [address] * (ABNORMAL) Renal Function Panel (08/23/2023 3:42 [...] LAB BLOOD ADD-ON Performing Organization Address City/[facility]/ZIP Co de Phone Number [facility] [address] [place] [address], [facility] [address] [place] [address] * Heparin Anti-Xa Assay (08/23/2023 3:41 AM [...] LAB BLOOD NON ADD-ON Performing Organization Address City/[facility] Co de Phone Number [facility] [address] [place] [address], [facility] [address] [place] [address] * Glucose, POCT (08/22/2023 11:38 PM CDT) Glucose, POCT, B 117 70 - 140 mg/dL 08/23/2023 1:06 AM CDT PCLX Site Capillary 08/23/2023 1:06 AM CDT PCLX Last Intake NPO 08/23/2023 1:06 AM CDT PCLX Blood 08/22/2023 11:3 8 PM CDT 08/23/2023 1:06 AM CDT Unknown Provider LAB POCT ORDERABLES- MANUAL Performing Organization Address City/[facility]/ZIP Co de Phone Number POC [facility] [address] [place] [address], [facility] PCLX [facility] POC [address] [place] [address] * Heparin Anti-Xa Assay (08/22/2023 10:14 PM [...] LAB BLOOD NON ADD-ON Performing Organization Address City/[facility] Co de Phone Number [facility] [address] [place] [address], [facility] [address] [place] [address] * CT Abdomen Pelvis without IV Contrast [...] Boubacar Brock M.D. LAB BLOOD NON ADD-ON [facility] [address] [place] [address], [facility] DTL [facility] [address] [place] [address] * Creatinine, Body Fluid (08/22/2023 3:30 PM [...] transport rates. All other fluids refer to www.[employer].com for further interpretive information. This test has been modified from the sealing machine operator's instructions. Its performance characteristics were determined by [facility] in a manner consistent with CLIA requirements. This test has not been cleared or approved by the U.S. Food and Drug Administration. Fluid Type, Creatinine Fluid, Abdomen 08/22/2023 3:52 PM CDT DTL Fluid (Abdomen) 08/22/2023 3 :30 PM CDT 08/22/2023 6:36 PM CDT Corin Ring M.D. LAB BODY FLUIDS AND STOOLS ORDERABLES [facility] [address] [place] [address], [facility] [address] [place] [address] * Transfuse Red Blood Cells : (08/22/2023 [...] of a right IJ vein single-lumen 4 Cymro tunneled PowerPICC ready for immediate use. NR [...] advanced into the IVC and a 4 Cymro dilator advanced over the wire and attached to a one-way stopcock. A suitable exit site in the right anterior chest was anesthetized and a small incision made. A 4 Cymro single-lumen PowerPICC was then tunneled from the [...] Wireadvanced into the IVC and a 4 Cymro dilator advanced over the wire andattached to a one-way stopcock. A suitable exit site in the right anteriorchest was anesthetized and a small incision made. A 4 Cymro single-lumen PowerPICC was then tunneled fromthe skin [...] of a right IJ vein single-lumen 4 Cymro tunneled PowerPICCready for immediate use. NR Kimi [...] LAB BLOOD ADD-ON Performing Organization Address City/[facility]/ZIP Co de Phone Number [facility] [address] [place] [address], [facility] STMA [facility] [address] [place] [address] * Type and Screen (with Reflex Antibody ID) (08/22/2023 2:55 AM CDT) Pathologist [facility] ABORh O Pos Not applicable 08/22/2023 3:25 AM CDT STRM Antibody Screen Negative Negative 08/22/2023 3:38 AM CDT STRM Type & Screen Expiration 08/25/2023 23:59 08/22/2023 3:25 AM CDT STRM Testing Location [place] DEFAULT 08/22/2023 3:07 AM CDT STRM Blood (Blood, Venous) 08/22/2023 2:55 AM CDT 08/22/2023 3:07 AM CDT Latisha Whitehead M.D. LAB BLOOD BANK T EST ORDERABLES Performing Organization Address City/[facility]/ZIP Co de Phone Number [facility] [address] [place] [address], [facility] STRM [facility] [address] [place] [address] * (ABNORMAL) Comprehensive Metabolic Panel (08/22/2023 2:40 AM CDT) [facility] Potassium, S 3.2(L) 3.6 - 5.2 [...] CDT Latisha Whitehead M.D. LAB BLOOD ADD-ON [facility] [address] [place] [address] * Heparin Anti-Xa Assay (08/22/2023 2:40 AM [...] Whitehead M.D. LAB BLOOD NON AD D-ON [facility] [address] [place] [address] * (ABNORMAL) APTT (Activated Partial Thromboplastin Time) (08/22/2023 2:40 AM CDT) Activated Partial Thrombopl Time, P 64(H) 25 - 37 sec 08/22/2023 3:12 AM CDT STMA Blood (Blood, Venous) 08/22/2023 2:40 AM CDT 08/22/2023 3:01 AM CDT Latisha Whitehead M.D. LAB BLOOD ADD-ON Performing Organization Address City/[facility] Co de Phone Number [facility] [address] STMA [facility] [address] [place] [address] * Triglycerides (08/21/2023 7:32 AM CDT) Triglycerides [...] LAB BLOOD ADD-O N Performing Organization Address [facility] Co de Phone Number [facility] [address] [place] [address], [facility] [address] [place] [address] * Phosphorus Inorganic (08/21/2023 7:32 AM CDT) Phosphorus (Inorganic), S 2.6 2.5 - 4.5 mg/dL 08/21/2023 9:03 AM CDT DTL Blood (Blood, Venous) 08/21/2023 7:32 AM CDT 08/21/2023 8:38 AM CDT Lizette Harvey M.D. LAB BLOOD ADD-O N [facility] [address] [place], [place] [address] [place] [address] * Magnesium (08/21/2023 7:32 AM CDT) Magnesium, S 2.3 1.7 - 2.3 mg/dL 08/21/2023 9:03 AM CDT DTL Blood (Blood, Venous) 08/21/2023 7:32 AM CDT 08/21/2023 8:38 AM CDT Lizette Harvey M.D. LAB BLOOD ADD-O N Performing Organization Address City/[facility] Co de Phone Number [facility] [address] [place] [address], [place] [address] * (ABNORMAL) Basic Metabolic Panel (08/21/2023 7:32 [...] LAB BLOOD ADD-O N Performing Organization Address [facility] Co de Phone Number [facility] [address] [place] [address], [facility] DTL [facility] [address] [place] [address] * (ABNORMAL) CBC without Differential (08/21/2023 7:32 [...] LAB BLOOD ADD-O N Performing Organization Address [facility]/ZIP Co de Phone Number [facility] [address] [place] [address], [facility] [address] [place] [address] * Heparin Anti-Xa Assay (08/21/2023 7:32 AM [...] Boubacar Brock M.D. LAB BLOOD NON ADD-ON [facility] [address] [place] [address], [facility] [address] [place] [address] * (ABNORMAL) APTT (Activated Partial Thromboplastin Time) (08/21/2023 7:32 AM CDT) Activated Partial Thrombopl Time, P 49(H) 25 - 37 sec 08/21/2023 8:31 AM CDT [facility] Blood (Blood, Venous) 08/21/2023 7:32 AM CDT 08/21/2023 8:06 AM CDT Boubacar Brock M.D. LAB BLOOD ADD-ON [facility] [address] [place] [address], [facility] [address] [place] [address] * Place peripherally inserted central catheter (PICC) [...] kidney. Lizette Harvey M.D. [facility] CT PROCEDUR ES * (ABNORMAL) Basic Metabolic Panel (08/20/2023 3:19 AM CDT) [facility] Potassium, S 3.7 3.6 - 5.2 [...] CDT Paula Hernandez M.D. LAB BLOOD ADD-ON [address] [address], [facility] [address] [address] * (ABNORMAL) CBC without Differential (08/20/2023 3:19 [...] ADD-ON [facility] [address] [place] [address] * (ABNORMAL) APTT (Activated Partial Thromboplastin Time) (08/20/2023 3:19 AM CDT) Activated Partial Thrombopl Time, P 52(H) 25 - 37 sec 08/20/2023 4:33 AM CDT DTL Blood (Blood, Venous) 08/20/2023 3:19 AM CDT 08/20/2023 4:10 AM CDT Boubacar Brock M.D. LAB BLOOD ADD-ON Performing Organization Address City/[facility]/ZIP Co de Phone Number [facility] [address] [place] [address] * (ABNORMAL) APTT (Activated Partial Thromboplastin Time) (08/19/2023 10:57 AM CDT) Activated Partial Thrombopl Time, P 54(H) 25 - 37 sec 08/19/2023 11:44 AM CDT DTL Blood (Blood, Venous) 08/19/2023 10:57 AM CDT 08/19/2023 11:26 AM CDT Boubacar Brokc M.D. LAB BLOOD ADD-ON [facility] [address] [place], [place] [address] [address] [place] [address] * (ABNORMAL) APTT (Activated Partial Thromboplastin Time) (08/19/2023 4:51 AM CDT) [facility] Activated Partial Thrombopl Time, P 59(H) 25 - 37 sec 08/19/2023 5:53 AM CDT DTL Blood (Blood, Venous) 08/19/2023 4:51 AM CDT 08/19/2023 5:36 AM CDT Boubacar Brock M.D. LAB BLOOD ADD-ON [facility] [address] [place], [place] [id number] [place] [address] [address] [place] [address] * (ABNORMAL) APTT (Activated Partial Thromboplastin Time) (08/18/2023 10:03 PM CDT) [facility] Activated Partial Thrombopl Time, P 63(H) 25 - 37 sec 08/18/2023 10:41 PM CDT DT Blood (Blood, Venous) 08/18/2023 10:03 PM CDT 08/18/2023 10:19 PM CDT Boubacar Brock M.D. LAB BLOOD ADD-ON [facility] [address] [place] [address], [facility] [address] [place] [address] * (ABNORMAL) APTT (Activated Partial Thromboplastin Time) (08/18/2023 2:50 PM CDT) [facility] Activated Partial Thrombopl Time, P 64(H) 25 - 37 sec 08/18/2023 3:25 PM CDT DTL Blood (Blood, Venous) 08/18/2023 2:50 PM CDT 08/18/2023 3:07 PM CDT Boubacar Brock M.D. [place] [address] * (ABNORMAL) APTT (Activated Partial Thromboplastin Time) (08/18/2023 6:42 AM CDT) Activated Partial Thrombopl Time, P 61(H) 25 - 37 sec 08/18/2023 7:28 AM CDT DTL Blood (Blood, Venous) 08/18/2023 6:42 AM CDT 08/18/2023 7:04 AM CDT Boubacar Brock M.D. [place] [address] * (ABNORMAL) APTT (Activated Partial Thromboplastin Time) (08/17/2023 11:04 PM CDT) Activated Partial Thrombopl Time, P 40(H) 25 - 37 sec 08/17/2023 11:46 PM CDT DTL Blood (Blood, Venous) 08/17/2023 11:04 PM CDT 08/17/2023 11:31 PM CDT Boubacar Brock M.D. LAB BLOOD ADD-ON [facility] [address] [place] [address] * US Lower Extremity Veins Bilateral (08/17/2023 [...] and management can be found on the [facility] Center[facility]pert site. Link [email or web address]/topic/[email or web address]/[email or web address] Findings discussed with ??Tayler Greenwood, ?? ([id number]) on 08/17/2023 7:11 PM. Procedure Note Jj [...] be found on theAskMayoExpert site. [email or web address]/topic/[email or web address] Findings discussed with Tayler Greenwood MD ([id number]) on 08/17/2023 7:11 PM. IMPRESSION: 1. 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 2. No acute left-sided DVT. Corin Ring M.D. [facility] US PROCEDURES * APTT (Activated Partial Thromboplastin Time) (08/17/2023 4:56 PM CDT) Pathologist [facility] Activated Partial Thrombopl Time, P 29 25 - 37 sec 08/17/2023 5:10 PM CDT STMA Blood (Blood, Venous) 08/17/2023 4:56 PM CDT 08/17/2023 5:00 PM CDT Paula Hernandez M.D. LAB BLOOD ADD-ON Performing Organization Address [facility] Co de Phone Number [facility] [address] [place] [address], [place] STMA [facility] [address] [place] [address] * ECG 12 Lead (08/16/2023 9:43 PM CDT) Ventricular Rate ECG/Min 134 BPM MUSE AK Interval 136 ms MUSE QRSD Interval 76 ms MUSE QT Interval 298 ms MUSE QTC Interval 445 ms MUSE P [place]st[place] 29 degrees MUSE R [place] -6 degrees MUSE T Wave [place] 21 degrees MUSE 08/16/2023 9:43 PM CDT [...] Azar M.D. ECG ORDERABLES Performing Organization Address [facility] Co de Phone Number MUSE NA [...] CDT Geneva Azar M.D. LAB BLOOD ADD-ON [facility] [address] [place] [address], [facility] [address] [place] [address] * (ABNORMAL) Basic Metabolic Panel (08/16/2023 9:40 [...] CDT Geneva Azar M.D. LAB BLOOD ADD-ON [facility] [address] [place] [address], [facility] [address] [place] [address] * Transfuse Red Blood Cells : (08/16/2023 12:04 PM CDT) Corin Ring M.D. BLOOD TRANSFUSION OR DERABLES * Transfuse Red Blood Cells : , 1 Units (08/16/2023 12:04 PM CDT) Corin Ring M.D. BLOOD TRANSFUSION OR DERABLES * (ABNORMAL) Basic Metabolic Panel (08/16/2023 3:10 AM CDT) [facility] Potassium, S 4.2 3.6 - 5.2 [...] BLOOD ADD-ON [facility] [address] [place] [address], [facility] [address] [address] * (ABNORMAL) CBC without Differential (08/16/2023 3:10 [...] Paula Hernandez M.D. LAB BLOOD ADD-ON [facility] [address] [place] [address], [facility] DTL [facility] [address] [place] [address] * (ABNORMAL) CBC with Differential, Blood (08/15/2023 3:58 PM CDT) [facility] Hemoglobin 9.0(L) 13.2 - 16.6 g/dL [...] Carlos Alberto Henson M.D. LAB BLOOD ADD-ON [facility] [address] [place] [address], [place] DTL [facility] [address] [place] [address] [facility] [address] [place] [address] * DX Abdomen 1 View (08/15/2023 1:19 [...] CDT 08/15/2023 12:03 PM CDT Rae Gonzalez WARP TYING MACHINE TENDER, MANAGER VALUATION, DNAP LAB BLOO D NON ADD-ON Performing Organization Address City/[facility]/ZIP Co de Phone Number [facility] [address] [place] [address], [facility] [address] [place] [address] * Lactate, B - Intra-op (08/15/2023 11:56 AM CDT) Lactate, B 1.1 0.5 - 2.2 mmol/L 08/15/2023 12:06 PM CDT [facility] Blood (Blood, Venous) 08/15/2023 11:56 AM CDT 08/15/2023 12:03 PM CDT Hayde Song M.D. LAB BLOOD NON ADD-O N Performing Organization Address City/[facility] Co de Phone Number [facility] [address] [place] [address], [facility] [address] [place] [address] * (ABNORMAL) Glucose, Whole Blood (08/15/2023 11:56 AM CDT) Glucose 144(H) 70 - 140 mg/dL 08/15/2023 12:06 PM CDT [facility] Blood (Blood, Arterial Line) 08/15/2023 11:56 AM CDT 08/15/2023 12:03 PM CDT Hayde Song M.D. LAB BLOOD ADD-ON [facility] [address] [place] [address], [facility] [address] [place] [address] * Potassium, Blood (08/15/2023 11:56 AM CDT) Potassium, B 4.3 3.6 - 5.2 mmol/L 08/15/2023 12:07 PM CDT [facility] Blood (Blood, Arterial Line) 08/15/2023 11:56 AM CDT 08/15/2023 12:03 PM CDT Hayde Song M.D. LAB BLOOD NON ADD-O N [facility] [address] [place], [place] [id number] [place] [address] [address] [place] [address] * Sodium, B (08/15/2023 11:56 AM CDT) [facility] Sodium, B 135 135 - 145 mmol/L 08/15/2023 12:[address] [facility] Blood (Blood, Arterial Line) 08/15/2023 11:56 AM CDT 08/15/2023 12:03 PM CDT Hayde Song M.D. LAB BLOOD NON ADD-O N Performing Organization Address City/[facility]/ZIP Co de Phone Number [facility] [address] [place], [place] [phone] [place] [address] [address] [place] [address] * (ABNORMAL) Calcium, Ionized (08/15/2023 11:56 AM CDT) [facility] Calcium, Ionized, B 4.53(L) 4.65 - 5.30 mg/dL 08/15/2023 12:[address] Blood (Blood, Arterial Line) 08/15/2023 11:56 AM CDT 08/15/2023 12:03 PM CDT Hayde Song M.D. LAB BLOOD NON ADD-O N [facility] [address] [place], [place] [phone] [place] [address] [address] [place] [address] * (ABNORMAL) Blood Gas with Coox, Arterial (08/15/2023 11:56 AM CDT) Pathologist [facility] pO2 166(H) 83 - 108 mm Hg [...] Song M.D. LAB BLOOD NON ADD-O N [facility] [address] [place] [address], [facility] [address] [place] [address] * [place] Fluoro Less Than 1 Hour [...] CDT 08/15/2023 10:28 AM CDT Rae Gonzalez WARP TYING MACHINE TENDER, MANAGER VALUATION, DNAP LAB BLOO D NON ADD-ON [facility] [address] [place] [address], [facility] [address] [place] [address] * Lactate, B - Intra-op (08/15/2023 10:28 AM CDT) Lactate, B 1.1 0.5 - 2.2 mmol/L 08/15/2023 10:[address] Blood (Blood, Venous) 08/15/2023 10:28 AM CDT 08/15/2023 10:28 AM CDT Hayde Song M.D. LAB BLOOD NON ADD-O N [facility] [address] [place] [address], [facility] [address] [place] [address] * Glucose, Whole Blood (08/15/2023 10:28 AM CDT) Glucose 134 70 - 140 mg/dL 08/15/2023 10:30 AM CDT [facility] Blood (Blood, Arterial Line) 08/15/2023 10:28 AM CDT 08/15/2023 10:28 AM CDT Hayde Song M.D. LAB BLOOD ADD-ON Performing Organization Address City/[facility] Co de Phone Number [facility] [address] [place], [place] [phone] [place] [address] [address] [place] [address] * Potassium, Blood (08/15/2023 10:28 AM CDT) Potassium, B 4.1 3.6 - 5.2 mmol/L 08/15/2023 10:31 AM CDT [facility] Blood (Blood, Arterial Line) 08/15/2023 10:28 AM CDT 08/15/2023 10:28 AM CDT Hayde Song M.D. LAB BLOOD NON ADD-O N Performing Organization Address City/[facility] Co de Phone Number [facility] [address] [place], [place] [phone] [place] [address] [address] [place] [address] * Sodium, B (08/15/2023 10:28 AM CDT) Sodium, B 135 135 - 145 mmol/L 08/15/2023 10:30 AM CDT [facility] Blood (Blood, Arterial Line) 08/15/2023 10:28 AM CDT 08/15/2023 10:28 AM CDT Hayde Song M.D. LAB BLOOD NON ADD-O N Performing Organization Address City/[facility]/ZIP Co de Phone Number [facility] [address] [place], [place] [address] [address] [place] [address] * (ABNORMAL) Calcium, Ionized (08/15/2023 10:28 AM CDT) Calcium, Ionized, B 4.25(L) 4.65 - 5.30 mg/dL 08/15/2023 10:31 AM CDT [facility] Blood (Blood, Arterial Line) 08/15/2023 10:28 AM CDT 08/15/2023 10:28 AM CDT Hayde Song M.D. LAB BLOOD NON ADD-O N [facility] [address] [place] [address], [facility] STMA [facility] [address] [place] [address] * (ABNORMAL) Blood Gas with Coox, Arterial [...] Song M.D. LAB BLOOD NON ADD-O N [facility] [address] STMA [facility] [address] [place] [address] * Bacteria / Yomaira Culture, Blood #2 (08/15/2023 3:33 AM CDT) Pathologist [facility] Bacteria/Leyla da Culture, Blood No growth after 5 days of incubation. 08/20/2023 6:02 AM CDT DTL Blood (Blood, Peripheral Draw) 08/15/2023 3:33 AM CDT 08/15/2023 5:58 AM CDT Comment:Specimen Source Site : Blood Narrative [facility] - 08/20/2023 6:02 AM CDT Received Bactec aerobic and Bactec anaerobic bottles Carlos Alberto Henson M.D. LAB MICROBIOLOGY - [facility] ORDERABLES [facility] [address] DTL [facility] [address] [place] [address] * (ABNORMAL) Basic Metabolic Panel (08/15/2023 3:31 [...] M.D. LAB BLOOD ADD-ON Performing Organization Address [facility]/[place] [address] * Bacteria / Yomaira Culture, Blood #1 (08/15/2023 3:31 AM CDT) Pathologist [facility] Bacteria/Leyla da Culture, Blood No growth after 5 days of incubation. 08/20/2023 6:02 AM CDT DTL Blood (Blood, Peripheral Draw) 08/15/2023 3:31 AM CDT 08/15/2023 5:59 AM CDT Comment:Specimen Source Site : Blood Carlos Alberto Henson M.D. LAB MICROBIOLOGY - G ENERAL ORDERABLES Performing Organization Address [facility] Co de Phone Number [facility] [address] [place], [place] [phone] [place] [address] * (ABNORMAL) CBC with Differential, Blood (08/15/2023 [...] CDT 08/15/2023 4:05 AM CDT Carlos Alberto eHnson M.D. LAB BLOOD ADD-ON [facility] [address] [place] [address], [place] DTL [facility] [address] [place] [address] [facility] [address] [place] [address] * (ABNORMAL) CBC with Differential, Blood (08/14/2023 [...] Carlos Alberto Henson M.D. LAB BLOOD ADD-ON [facility] [address] [place] [address], [facility] STMA [facility] [address] [place] [address] [facility] [address] [place] [address] * Transfuse Red Blood Cells : , [...] with Differential, Blood (08/14/2023 3:18 AM CDT) [facility] Hemoglobin 7.6(L) 13.2 - 16.6 g/dL [...] Carlos Alberto Henson M.D. LAB BLOOD ADD-ON [facility] [address] [place] [address], [facility] STMA [facility] [address] [place] [address] [facility] [address] [place] [address] * (ABNORMAL) Basic Metabolic Panel (08/14/2023 3:18 [...] LAB BLOOD ADD-ON Performing Organization Address City/[facility]/ZIP Co de Phone Number [facility] [address] [place] [address], [facility] DTL [facility] [address] [place] [address] * Type and Screen (with Reflex Antibody [...] BLOOD BANK TEST ORDERABLES Performing Organization Address [facility] Co de Phone Number [facility] [address] [place] [address], [facility] [address] [place] [address] * (ABNORMAL) Bacteria / Yomaira Culture, Blood #1 (08/13/2023 7:35 PM CDT) Pathologist [facility] Bacteria/Cand jessica Culture, Blood ESCHERICHIA COLI Growth after 11 Hours (A) 08/16/2023 11:17 AM CDT DTL Comment: 3 of 3 Bottles, Susceptibilities performed on another specimen [id number] Blood (Blood, Peripheral Draw) 08/13/2023 7:35 PM CDT 08/13/2023 8:15 PM CDT Comment:Specimen Source Site : Blood Carlos Alberto Henson M.D. LAB MICROBIOLOGY - G ENERAL ORDERABLES [facility] [address] [place] [address], [place] DTL [facility] [address] [place] [address] * ECG 12 Lead (08/13/2023 7:02 PM CDT) Ventricular Rate ECG/Min 128 BPM MUSE AK Interval 138 ms MUSE QRSD Interval 64 ms MUSE QT Interval 304 ms MUSE QTC Interval 443 ms MUSE P [place]stow 45 degrees MUSE R [place] 34 degrees MUSE T Wave [place] 46 degrees MUSE 08/13/2023 7:02 PM CDT 08/13/2023 7:13 PM CDT Impressions MUSE - 08/13/2023 7:13 PM CDT Sinus tachycardia Otherwise normal ECG No previous ECGs available Reviewed by BETTY Walton Narrative Procedure Note Lucas Lee M.D. - 08/13/2023 IMPRESSION: Sinus tachycardia Otherwise normal ECG No previous ECGs available Reviewed by BETTY Walton Toby Wright ECG ORDERABLES Performing Organization Address [facility] Co de Phone Number MUSE NA [...] CDT Comment:Specimen Source Site : Blood Narrative [facility] - 08/16/2023 11:17 AM CDT Received Bactec aerobic and Bactec anaerobic bottles Organism Antibiotic Method Susceptibility Escherichia coli Amikacin SUSCEPTIBILITY, LAOY (MCG/ML) <=4 mcg/mL: Susceptible Escherichia coli Aztreonam [...] Alberto Henson M.D. [facility] ORDER[facility]LES [facility] [address] [place] [address], [place] DTL [facility] [address] [place] [address] * Magnesium (08/13/2023 5:27 PM CDT) Magnesium, S 1.9 1.7 - 2.3 mg/dL 08/13/2023 6:12 PM CDT DTL Blood (Blood, Venous) 08/13/2023 5:27 PM CDT 08/13/2023 5:58 PM CDT Carlos Alberto Henson M.D. LAB BLOOD ADD-ON [facility] [address] [place] [address], [facility] DTL [facility] [address] [place] [address] * (ABNORMAL) Hepatic Function Panel (08/13/2023 5:27 [...] Carlos Alberto Henson M.D. LAB BLOOD ADD-ON [facility] [address] [place] [address], [facility] DTL [facility] [address] [place] [address] * (ABNORMAL) Basic Metabolic Panel (08/13/2023 5:27 [...] Carlos Alberto Henson M.D. LAB BLOOD ADD-ON [facility] [address] [place] [address], [facility] STMA [facility] [address] [place] [address] * Prothrombin Time (PT) (08/13/2023 5:27 PM [...] Alberto Henson M.D. LAB BLOOD ADD-ON [address] [address], [place] [address] * (ABNORMAL) CBC with Differential, Blood (08/13/2023 [...] Carlos Alberto Henson M.D. LAB BLOOD ADD-ON [facility] [address] [place] [address], [facility] STMA [facility] [address] [place] [address] [facility] [address] [place] [address] * (ABNORMAL) Dipstick, Urine (08/13/2023 5:07 PM [...] M.D. LAB URINE ORDERABLES Performing Organization Address City/[facility]/ZIP Co de Phone Number [facility] [address] [place] [address] * Osmolality, Urine (08/13/2023 5:07 PM CDT) Osmolality, U 351 150 - 1150 mOsm/kg 08/13/2023 7:46 PM CDT DTL Urine 08/13/2023 5:07 PM CDT 08/13/2023 5:45 PM CDT Carlos Alberto Henson M.D. LAB URINE ORDERABLES Performing Organization Address City/[facility]/ZIP Co de Phone Number [facility] [address] [place] [address] * (ABNORMAL) Microscopic Manual (08/13/2023 5:07 PM [...] Carlos Alberto Henson M.D. LAB URINE ORDERABLES [facility] [address] [place] [address] * pH, Random, Urine (08/13/2023 5:07 PM CDT) pH, Random, U 7.0 4.5 - 8.0 08/13/2023 7:46 PM CDT DTL Urine 08/13/2023 5:07 PM CDT 08/13/2023 5:45 PM CDT Carlos Alberto Henson M.D. LAB URINE ORDERABLES [facility] [address] [place] [address], [place] [facility] [address] [place] [address] * (ABNORMAL) Bacterial Culture, Aerobic + Susceptibility, [...] Carlos Alberto Henson M.D. LAB MICROBIOLOGY - [facility] ORDERABLES [address] [address], [facility] [address] [address] * (ABNORMAL) Urinalysis, with Microscopic: Urine, Midstream [...] CDT DTL Predicted 24 [place] [address](H) <229 mg/24 h 08/13/2023 8:50 PM CDT DTL Predicted Range [id number] mg/24 h 08/13/2023 8:50 PM CDT DTL Comment Micro done on <2.5 mL 08/13/2023 7:55 PM CDT DTL Urine (Urine, Midstream) 08/13/2023 5:07 PM CDT 08/13/2023 5:44 PM CDT Carlos Alberto Henson M.D. LAB URINE ORDERABLES [facility] [address] [place] [address], [facility] [address] [place] [address] * Interpretation of Outside CT Abdomen and [...] home supply. 08/17/23: Id'ed by [facility] Rx# [id number], filled 07/22/23. HAZARDOUS - Handle with care. Swallow whole. Do NOT crush, chew or open capsule. Given 08/26/2023 9:12 AM CDT 120 mg Given 08/25/2023 9:08 AM CDT 120 mg Given 08/24/2023 9:12 AM CDT 120 mg Lactated Ringer's 1.5 mL/kg/hr ? 75 kg [place] weight (112.5 mL/hr, rounded to 113 mL/hr), intravenous, Continuous, Starting on Tue08/22/23 at 1030, Conditional Phase Pre-Gastrografin Administration. (Rate = 1.5 mL/kg/hr ideal body weight) Lactated Ringer's 0.75 mL/kg/hr ? 75 kg [place] weight (56.25 mL/hr, rounded to 56.3 mL/hr), [...] Forrest R.N.)1831 (Given - Provider: Mary Rosado RRitesh.) 0019 (Not Given - Provider: Fatuma See R.N. - Reason: Patient/family refused)0639 (Given - Provider: Fatuma See R.N.)1136 (Given - Provider: Tayler Forrest RNraendra)1750 (Not Given - Provider: Mayur MartinezNJonah - Reason: Patient/family refused)2349 (Not Given - [...] RNarendra)1357 (Not Given - Provider: Lupe Valdez RJonahNJonah [...] Provider: Brittni Howe R.N.)1521 (Given - Provider: Mayr Rosado RRitseh.) 0640 (Given - Provider: Fatuma See R.N.)1750 [...] home supply. 08/17/23: Id'ed by [facility]. [facility] Rx# [id number], filled 07/22/23. HAZARDOUS - Handle with care. Swallow whole. Do NOT crush, chew or open capsule. 911 (Given - Provider: Tayler Forrest R.N. - Comment: Pat Murray, -2nd RN) 907 (Given - Provider: Tayler Forrest R.N. - Comment: Pt 's own med from home) 911 (Given - Provider: Lupe Valdez R.N.) fat emulsion [id number] & fish oil infusion 50 g (SMOFlipid) [...] Patient/family refused) 0911 (Not Given - Provider: Lpue Valdez R.N. - Reason: Patient/family refused) metoprolol [...] Provider Order - Comment: dose auto held) 09 (Dose Auto Held - Provider: Kimi Vieira M.D., M.S.)2099 (Not Given - Provider: Paola Salazar R.N. - Reason: See Provider Order) 09 (Not Given - Provider: Lupe Valdez [...] Tayler Forrest R.N.) 0915 (Given - Provider: Zixi Valdez, R.N.) trospium tablet 20 mg (SANCTURA) 20 [...] Ringer's 1.5 mL/kg/hr ? 75 kg [place] weight (112.5 mL/hr, rounded to 113 mL/hr), intravenous, Continuous, Starting on Tue08/22/23 at 1030, Conditional Phase Pre-Gastrografin Administration. (Rate = 1.5 mL/kg/hr ideal body weight) Lactated Ringer's 0.75 mL/kg/hr ? 75 kg [place] weight (56.25 mL/hr, rounded to 56.3 mL/hr), [...] 1547 documented in this encounter Care Teams Rectifying Operator Relationship Specialty Start Date End Date Elsewhere, Pcp PCP - General Internal Medicine 08/13/23 documented as of this encounter
--- OUTSIDE RECORDS SUMMARY | 2023-11-18 12:42 | XMS_ITS | Data Portability ---
Author Organization [facility], [facility] Address [address] [place] [address] Care Team Providers Care Naval Architect Specialist Name Role Phone MASOUD SAUER Primary Care Provider [phone] Assessment No assessment recorded. Plan of Treatment Reminders Order Date Submit Date Provider Last Modified By Organization Details Last Modified Time Details Appointments None recorded . Lab urinalys is, dipstick 2023 024 [email or web address] [facility], [address] [place], [address], 4 15:08:54 culture, urine [address] [facility], [address], [place], [address], 4 10:11:11 Referral None recorded . Procedures None recorded . Surgeries cystosco py with ureteral stent exchange (SURG) 2021 022 [email or web address] Not available 16:50:47 cystosco py with ureteral stent exchange (SURG) 2021 022 Not available 15:46:30 Imaging None recorded . Medication Orders Myrbetri q 50 mg tablet,e xtended release 2021 022 [id number], [address] [place], [place], [phone], 2 17:50:02 Bactrim DS 800 mg-160 mg tablet 2023 024 [email or web address] [facility][id number], [address] [facility], [place], [place], [phone], 16:19:28 Patient TargetsNo targets recorded. Patient InstructionsNo instructions recorded. Reason for Referral None Reported. Results Created Date Observation Date Name Description Value Unit Range Abnormal Flag LastModifiedBy Organization Detail LastModifiedTime 06/23/1906/23/2023 URINE CULTU RE final report MICROB IOLOGY RESULT S Not Available [facility] [address], [place], [address], 06/25/2023 10:11:11 06/23/19 24 06/23/2023 urina lysis , dipst ick Color-Status Red Not Available [facility] [address], [place], [address], 06/23/2023 15:08:10 06/23/19 24 06/23/2023 urina lysis , dipst ick pH-Status 7.5 Not Available [facility] [address], [place], [address], 06/23/2023 15:08:10 06/23/19 24 06/23/2023 urina lysis , dipst ick Protein-Stat us >=9.0 Not Available [facility] [address], [place], [address], 06/23/2023 15:08:10 06/23/19 24 06/23/2023 urina lysis , dipst ick Nitrates-Sta tus negati ve Not Available [facility] [address], [place], [address], 06/23/2023 15:08:10 06/23/19 24 06/23/2023 urina lysis , dipst ick Blood-Status Large Not Available [facility] [address], [place], [address], 06/23/2023 15:08:10 06/23/19 24 06/23/2023 urina lysis , dipst ick Leuko-Status Negati ve Not Available [facility] [address], [place], [address], 06/23/2023 15:08:10 06/23/19 24 06/23/2023 urina lysis , dipst ick Specimen Type Voided Not Available [facility] [address], [place], [address], 06/23/2023 15:08:10 07/04/19 24 07/01/2023 CT, abdom en + pelvi s, w/o contr ast No observ ation record ed. [email or web address] [facility] [address] [address], [place], [address], 09/01/2023 14:40:29 07/18/19 24 07/18/2023 XR, kidne y + urete r + bladd er No observ ation record ed. [email or web address] [facility] [address], [place], [address], 07/22/2023 15:56:19 Result Notes None recorded. Procedures Surgical History Date Name Laterality Status Provider Name and Address Organization Details Recorded Time Bladder Scan completed Rabia matthews, [facility] 06/23/2023 15:08:00 Cystoscopy completed Nicola Ware MD [address] [place] [address],[address], [place], [address], [facility] 12/30/2021 17:11:17 Colonoscopy completed Nicola Ware MD [address] [place] [address],[address], [place], [address], [facility] 12/30/2021 17:11:22 Imaging Results Imaging Date Name Status LastModified by [facility] Details LastModified Time 07/01/2023 CT, abdomen + pelvis, w/o contrast completed [email or web address] [address], [place], [address], 09/01/2023 14:40:29 07/18/2023 XR, kidney + ureter + bladder completed [facility] [address], [place], [address], 07/22/2023 15:56:19 Procedure Notes None recorded. Medical [...] PREP INSTRUCTI ONS RECEIVED FROM [facility] active Not Available Not Available No t Available furosemide 20 mg tablet TAKE 1 TABLET BY MOUTH DAILY active Not Available Not Available No t Available cefuroxime axetil 500 mg tablet active Not Available Not Available No t Available polyethylen e glycol 3350 17 gram/dose oral powder MIX AND DRINK DIRECTED IN [facility] PY PREP INSTRUCTI ONS RECEIVED FROM [facility] active Not Available Not Available No [...] Updated DateTime 12/30/2021 177.8 cm 27.4 kg/m2 80840.14 g Nicola Ware MD [address] [place] [address], [address] 12/30/2021 17:10:12 Date Recorded Body height Body mass index (BMI) Body weight Provider Name and Address Organization Details Last Updated DateTime 03/12/2022 177.8 cm 27.4 kg/m2 03515.14 g Rabia Fererll [facility] 03/12/2022 13:55:47 Social History Question Answer Notes LastModified by Organizat ion Details LastModified Time Tobacco Smoking Status Never Smoker Nicola Ware MD [address] [place] [address], [address], [facility] 12/30/2021 17:11:00 What Is [...] Encounter Closed Date Diagnosis/Indication Diagnosis SNOMED-CT Code [id number] Nicola Ware MD [facility] [address] [place] [address] 12/30/2021 16:01:19 01/01/2022 09:36:50 Increased frequency of urination 835218778 Malignant tumor of prostate [id number] Hydronephrosis [id number] Aliza Landeros [facility] [address] [place] [address] 03/12/2022 13:13:50 03/15/2022 14:00:47 Increased frequency of urination 805225371 Malignant tumor of prostate 449518963 Hydronephrosis [id number] Nicola Ware MD [facility] [address] [place] [address] 06/23/2023 14:16:52 06/24/2023 08:40:38 Blood in urine [id number] Health Concerns Section Related Observation LastModified by Organization Detai ls LastModified Time None Recorded Concern Status LastModified by Organization Details LastModified Time None Recorded Advance Directives Directive None Recorded Payers Encounter Date Sequence Insurance Name Policy Number Policy Krishnan Covered Member ID Krishnan Member ID Guarantor Name 12/30/2021 1 [employer] (MEDICARE REPLACEMENT/ ADVANTAGE - PPO) [id number] José Miguel D Braucher [id number] José Miguel D Braucher 03/12/2022 1 [employer] (MEDICARE REPLACEMENT/ ADVANTAGE - PPO) [id number] José Miguel D Braucher [id number] José Miguel D Braucher 06/23/2023 1 [employer] (MEDICARE REPLACEMENT/ ADVANTAGE - PPO) [id number] José Miguel D Braucher [id number] José Miguel D Braucher Notes Date Note Type Note Provider Name and Address Organization Details Recorded Time 12/30/2021 text/html HPI Notes: Excer pt from hospital consultation... 81 y.o. year old male who was admitted to [facility] for gross hematuria & CT findings. [...] some of the history. Nicola Ware MD [address] [place] [address],[address], [place], [address], [facility] 12/30/2021 23:07:10 03/12/2022 text/html HPI Notes: Excer pt from hospital consultation... 81 y.o. year old male who was admitted to [facility] for gross hematuria & CT findings. [...] some of the history. Nicola Ware MD [address] [place] [address],[address], [place], [address], [facility] 03/12/2022 17:21:47 06/23/2023 text/html HPI Notes: 83 Y male here after calling triage this AM with hematuria/pain with urination. Patient has stent in place, last exchange 02/08/2022. 06/23/23 visit completed by Curry Ware MD [address] [place] [address],[address], [place], [address], [facility] 06/23/2023 16:19:33
--- OUTSIDE RECORDS SUMMARY | 2023-11-18 12:42 | XMS_ITS | Clinical Summary ---
Author Organization [employer] [facility] Address [place], [place] [address] Care Team Providers Care Upper Stitcher Name Role Phone Cesar Mccollum MD Primary Care Provider Nicola Ware MD Unavailable [phone] Mireya Tan MD Unavailable [phone] [facility] Unavailable [phone] Allergies No known active allergies Medications Medication [...] type, unspecified whether angina present, unspecified whether [place] or transplanted heart Take 1 Tablet (75 [...] 03/01/2020 11/20/2020 Overview: 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 BRM=319.87 Bladder mass 02/29/2020 04/30/2020 Hematuria 02/29/2020 03/05/2020 Acute deep vein thrombosis (DVT) 02/29/2020 11/20/2020 S/P coronary angioplasty 11/03/2016 Chest pain 09/15/2016 03/05/2020 Elevated prostate specific antigen (PSA) 10/06/2010 03/05/2020 Hip arthritis 10/06/2010 03/05/2020 Colon polyp 07/15/2010 PATRICE (acute kidney injury) Obstructive uropathy 020 Encounters Date Type Department Care Team Description 11/14/2023 11:30 AM CDT Home Care Visit [address] [address] Brittanie Prieto, JAMEL SN - MISSED VISIT 11/11/2023 10:30 AM CDT Home Care Visit [address] [address] Raffy Carter, PT PT - HOME VISIT 11/09/2023 9:00 AM CDT Home Care Visit [address] [address] Barbara Fuentes, JAMEL SN - HOME VISIT 11/07/2023 Home Care Visit [address] [address] Rufina Cosby RN CARE COORDINATION 11/04/2023 10:30 AM CDT Home Care Visit [address] [address] Raffy Carter, PT PT - HOME VISIT 10/31/2023 11:00 AM CDT Home Care Visit [address] [address] Doreen Hussein, JAMEL SN - HOME VISIT 10/31/2023 2:30 AM CDT Home Care Visit [address] [address] Liz Fang, [facility] MANAGER DIALYSIS - MISSED VISIT 10/28/2023 10:30 AM CDT Home Care Visit [address] [address] Raffy Carter, PT PT - HOME VISIT 10/25/2023 11:30 AM CDT Home Care Visit [address] [address] Raffy Carter, PT PT - REASSESSMENT 10/24/2023 11:00 AM CDT Home Care Visit [address] [address] Doreen Hussein, JAMEL SN - HOME VISIT 10/24/2023 10:00 AM CDT Home Care Visit [address] [address] Liz Fang LICSW MANAGER DIALYSIS - HOME VISIT 10/21/2023 12:00 PM CDT Home Care Visit [address] [address] Raffy Carter, PT PT - HOME VISIT 10/20/2023 10:35 AM CDT Office Visit [facility] [address] [place] [address] Cesar Mccollum MD Follow Up; Concerns (Discuss protocol for hyperbaric treatment at hospital) 10/20/2023 Travel 10/19/2023 9:45 AM CDT Home Care Visit [address] [address] Rigo Heart RN SN - HOME VISIT 10/18/2023 Home Care Visit [address] [address] Milli Torre RN CARE COORDINATION 10/17/2023 3:00 PM CDT Home Care Visit [address] [address] Raffy Carter, PT PT - HOME VISIT 10/17/2023 10:00 AM CDT Home Care Visit [address] [address] Liz Fang [facility] MANAGER DIALYSIS - INITIAL ASSESSMENT 10/14/2023 Home Care Visit [address] [address] Raffy Carter, PT PT - MISSED VISIT 10/12/2023 Telephone [facility] [address] [place] [address] Cesar Mccollum MD Questions 10/11/2023 7:15 AM CDT Home Care Visit [address] [address] Manav Montero, RN SN - WOUND/OSTOMY CHART CONSULT 10/10/2023 4:00 PM CDT Home Care Visit [address] [address] Deonna Oliveira, CRYSTAL GROWER PT - HOME VISIT 10/10/2023 10:30 AM CDT Home Care Visit [address] [address] Milli Torre, RN SN - HOME VISIT 10/08/2023 9:00 AM CDT Home Care Visit [address] [address] Justyna Hernandez, JAMEL SN - INITIAL ASSESSMENT 10/08/2023 Telephone [facility] [address] [place] [address] Cesar Mccollum MD Home Care (BP med parameters) 10/07/2023 11:30 AM CDT Home Care Visit [address] [address] Raffy Carter, PT PT - HOME VISIT 10/07/2023 Home Care Visit [address] [address] Milli Torre, RN CARE COORDINATION 10/06/2023 1:00 PM CDT Ancillary Procedure [place] [address] [place] [address] 10/06/2023 Travel 10/04/2023 1:00 PM CDT Office Visit [facility] [address] [place] [address] Souleymane Miller MD Follow Up (Annual Follow up /Coronary artery disease) 10/04/2023 10:15 AM CDT Home Care Visit [address] [address] Manav Rodríguez, PT PT - [facility] START OF CARE 10/04/2023 Telephone [facility] [address] [place] [address] Manav Rodríguez, PT Home Care 10/04/2023 Orders Only On License Of [facility] [place] [facility] [address] [place] [address] Souleymane Miller MD 1 scan: (1-Ord) NFLD-EKG-10/04/23 10/04/2023 Travel 10/04/2023 Plan of Care Documentation [address] [address] 10/03/2023 Telephone [facility] [address] [place] [address] Cesar Mccollum MD Questions 10/02/2023 Home Care Visit [address] [address] Saul Lawson, RN CARE COORDINATION 10/01/2023 Home Care Visit [address] [address] Saul Lawson, RN CARE COORDINATION 09/29/2023 1:40 PM CDT Office Visit [facility] [address] [place] [address] Cesar Mccollum MD Hospital F/U ([place], urinary problem); Concerns (Bed sore - would like checked) 09/29/2023 Travel 09/23/2023 Telephone [facility] [address] [place] [address] Cesar Mccollum MD Results 09/22/2023 10:30 AM CDT Orders Only [facility] [address] [place] [address] Lab, [place] [facility] 09/22/2023 9:50 AM CDT Nurse/Clinic Staff Only [facility] [address] [place] [address] Dressing Change 09/22/2023 Telephone [facility] [address] [place] [address] Cesar Mccollum MD Results 09/22/2023 Travel 09/21/2023 3:20 PM CDT Nurse/Clinic Staff Only [facility] [address] [place] [address] Procedure (UA collection from jon and neph tube) 09/21/2023 Telephone [facility] [address] [place] [address] Letty Mera MD 09/20/2023 2:15 PM CDT Ancillary Procedure [facility] [address] [place] [address] 09/20/2023 1:00 PM CDT Office Visit [facility] [address] [place] [address] Letty Mera MD Hospital F/U (Admission Date: 09/09/2023 Discharge Date: 09/15/23); Wound Check (sacrum & neph tube site. ); Home Care; Concerns (Feels like catheter is falling out - pt states that it is leaking. 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) 08/31/2023 Transcribe Orders [facility] [address] [place] [address] Senthil Alvarez MD 08/30/2023 Orders Only [facility] Scanner 1 scan: (1-Ord) [facility], 08/30/2023 08/23/2023 Transcribe Orders [facility] [address] [place] [address] Provider, Non-Excellian from Last 3 Months Immunizations Name Administration Dates Next Due COVID-19 Vaccine Spikevax (M oderna 50mcg/0.5mL) 12YO+ 3840-4530 Formula PF 07/21/2023,03/08/2023 COVID-19 vaccine (Pfizer-Bio NTech 30mcg/0.3mL) 12YO+ BIVALENT PF, MDV 09/13/2022,01/28/2022 COVID-19 vaccine (MyScienceWork NTech 30mcg/0.3mL) 12YO+ DAYRON-SUCROSE PF, MDV 08/26/2021 COVID-19 vaccine ([employer] NTech 30mcg/0.3mL) PF, MDV 01/13/2021,06/17/2020,2020 Influenza, Inactivated [...] Care Team (Late st Contact Info) Description 11/21/2023 4:00 AM CDT Home Care Visit [address] [address] Doreen Hussein RN [address] [place] [address] 11/28/2023 4:00 AM CDT Home Care Visit [address] [address] Doreen Hussein, JAMEL [address] [place] [address] 11/30/2023 10:30 AM CDT Office Visit [facility] [address] [place] [address] Cesar Mccollum MD [address] [place] [address] Health Maintenance Due Date Last Done Comments [...] Completed 4 Medical Devices Implanted Type Area Job Order Clerk Device Identifier Shelf Expiration Date Model / Serial / Lot Stent Uret [id number] Contour - [id number] Implanted:Qty: 1 on 07/18/2023 by Nicola Ware MD at [facility] Right: [employer]ter [facility] 02/27/2026 [id number] / / [id number] Procedures Procedure Name Priority Date/Time Associated Diagnosis Comments ECHO TTE COMPLETE WO CONTRAST DEBBI 10/06/2023 1:34 PM CDT Coronary artery disease, unspecified vessel or lesion type, unspecified whether angina present, unspecified whether lower [place] or transplanted heart EKG 12 LEAD Routine 10/04/2023 2:15 PM CDT Coronary artery disease, unspecified vessel or lesion type, unspecified whether angina present, unspecified whether lower [place] or transplanted heart UT READING EKG - NO CHARGE, COMP ONLY Routine 10/04/2023 2:14 PM CDT Coronary artery disease, unspecified vessel or lesion type, unspecified whether angina present, unspecified whether lower [place] or transplanted heart CBC WITH AUTO DIFFERENTIAL [...] CDT ECHOCARDIOGRAM SHYAM SANDS ? Accession#: ?? [id number] : ?1940 83 years Study Date: ?? 10/06/2023 12:59:18 PM Gender: M ?BP: ? 131/72 mmHg Height: 175.26 cm ?BSA: ?1.98 m? ? ? Weight: 81.65 kg ? Tech: ? MBF ? Referring MD: SOULEYMANE MILLER Site: ? [facility] Reading Location: Mobile OP Patient [...] . This study was interpreted by an [facility] accredited facility. ??Final ?? Procedure Note Manav Feliciano MD - 10/06/2023 ECHOCARDIOGRAM SHYAM SANDS : 1940 83 years Study Date: 10/06/2023 12:59:18 PM Gender: M BP: 131/72 mmHg Height: 175.26 cm BSA: 1.98 m? ? ? Weight: 81.65 kg Tech: CONSTANZA Referring MD: SOULEYMANE MILLER Site: [facility] Reading Location: Mobile OP Patient [...] . This study was interpreted by an [facility] accredited facility. Final Souleymane Miller MD ECHO ORD * EKG 12 LEAD (10/04/2023 2:15 PM CDT) Souleymane Miller MD EKG ORD * UT READING EKG - NO CHARGE, COMP ONLY (10/04/2023 2:14 PM CDT) Souleymane Miller MD PB - PROVIDER READ INGS * (ABNORMAL) CBC WITH AUTO DIFFERENTIAL (09/22/2023 10:39 AM CDT) Only the most recent of2 resultswithin the time period is included. [facility] WHITE BLOOD COUNT 11.0 4.5 - 11.0 thou/cu mm 09/22/2023 10:46 AM CDT [facility] RED BLOOD COUNT 2.81(L) 4.30 - 5.90 mil/cu mm 09/22/2023 10:46 AM CDT [facility] HEMOGLOBIN 8.0(L) 13.5 - 17.5 g/dL 09/22/2023 10:46 AM CDT [facility] HEMATOCRIT 25.2(L) 37.0 - 53.0 % 09/22/2023 10:46 AM CDT [facility] MCV 90 80 - 100 fL 09/22/2023 10:46 AM CDT [facility] MCH 28.5 26.0 - 34.0 pg 09/22/2023 10:46 AM CDT [facility] MCHC 31.7(L) 32.0 - 36.0 g/dL 09/22/2023 10:46 AM CDT [facility] RDW 17.5(H) 11.5 - 15.5 % 09/22/2023 10:46 AM CDT [facility] PLATELET COUNT 466(H) 140 - 440 thou/cu mm 09/22/2023 10:46 AM CDT [facility] MPV 8.9 6.5 - 11.0 fL 09/22/2023 10:46 AM CDT [facility] % NEUT 86.3 % 09/22/2023 10:46 AM CDT [facility] % LYMPH 6.6 % 09/22/2023 10:46 AM CDT [facility] % MONO 5.8 % 09/22/2023 10:46 AM CDT [facility] % EOS 1.2 % 09/22/2023 10:46 AM CDT [facility] % BASO 0.1 % 09/22/2023 10:46 AM CDT [facility] ABSOLUTE NEUTROPHILS 9.5(H) 1.7 - 7.0 thou/cu mm 09/22/2023 10:46 AM CDT [facility] ABSOLUTE LYMPHOCYTES 0.7(L) 0.9 - 2.9 thou/cu mm 09/22/2023 10:46 AM CDT [facility] ABSOLUTE MONOCYTES 0.6 <0.9 thou/cu mm 09/22/2023 10:46 AM CDT [facility] ABSOLUTE EOSINOPHILS 0.1 <0.5 thou/cu mm 09/22/2023 10:46 AM CDT [facility] ABSOLUTE BASOPHILS 0.0 <0.3 thou/cu mm 09/22/2023 10:46 AM CDT [facility] Blood BLOOD SPECIMEN / Unknown Venipuncture / Unknown 09/22/2023 10:39 AM CDT 09/22/2023 10:43 AM CDT Letty Mera MD HEMATOLOGY Performing Organization Address City/[facility]/ZIP Co de Phone Number [facility] [address] [place] [address], [place] [phone] * (ABNORMAL) URINE CULTURE (09/21/2023 4:40 PM CDT) Only the most recent of2 resultswithin the time period is included. CULTURE RESULT(A) 09/24/2023 9:54 AM CDT [facility] CULTURE >100,000 CFU/mL Shirin albicans 09/24/2023 9:54 AM CDT [facility] Urine URINE SPECIMEN / Unknown Non-Blood / Unknown 09/21/2023 4:40 PM CDT 09/21/2023 4:41 PM CDT Letty Mera MD MICROBIOLO GY [facility] [address] 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
== END 2023-11-18 12:34 | disposition home or self-care (01) ==
LOC: WOUND 12:33
PROVIDERS: PCP Family Medicine; Visit Provider Nurse Practitioner Family
DX: N30.41 Irradiation cystitis with hematuria (principal); L89.153 Pressure ulcer of sacral region, stage 3; K62.7 Radiation proctitis; C61 Malignant neoplasm of prostate; Y84.2 Radiological procedure and radiotherapy as the cause of abnormal reaction of the patient, or of later complication, without mention of misadventure at the time of the procedure
CPT/HCPCS: 11042; G0277

== ENCOUNTER 2023-11-25 08:11 | Outpatient (CLI) | payer MEDICARE, OTHER, SELFPAY ==
--- OUTSIDE RECORDS SUMMARY | 2023-11-28 08:19 | XMS_ITS | Clinical Summary ---
Author Organization [facility] Address [address] [place] [address] Care Team Providers Care Diesel Locomotive Engineer Name Role Phone Elsewhere, Pcp Primary Care Provider Unavailabl e Source Comments Patient records contain information from all sites at [facility]. For routine questions regarding patient records, call [phone] during business hours, M-F 8:00 AM - 5:00 PM Central Time. Record requests for emergency care only can be directed to [phone] at any time.[facility] Allergies No known active allergies [...] minutes, take the second dose and call [phone] 11/02/2019 Active tamsulosin (FLOMAX) 0.4 mg 24 [...] teral 11/15/2023 Atherosclerotic Heart Diseas e Of [place] Coronary Artery Without Angina Pectoris 11/15/2023 Overview (11/15/2023): stent placements 2017 Complication Procedure Initial 11/15/2023 Deficiency Iron 11/15/2023 Hyperlipidemia 11/15/2023 Hypertension Essential Primary 11/15/2023 Skilled Nursing Current Use Of Oth er Agents Affecting Estrogen Receptors And Estrogen Levels 11/15/2023 Presence Of Other Vascular Implants And Grafts 0 11/15/2023 Other Specified Disorders Of Bladder 11/15/2023 Other Retention Of Urine 11/15/2023 PreDiabetes 11/15/2023 Presence Of Urogenital Implants 11/15/2023 Unspecified Complication Of Genitourinary Prosthetic Device Implant And Graft Initial 11/15/2023 Inferior Vena Cava Filter 11/15/2023 Vice President For Instruction (Current) Anticoagulant Treatment 09/2023 Presence Of Other [...] CDT Ancillary Procedure Department of Wound Ostomy 11/14/2023 11:38 PM CDT - 11/17/2023 3:55 PM CDT Hospital Encounter [facility], Fifth Floor [address] [place] [address] Eliceo Guerrier M.D., Ph.D. Sylvie Álvarez M.B.B.S., M.D. Pokhai, Gabriel, M.D. Burkland, Carl B, M.D. Hematuria Gross (Primary Dx) Discharge Disposition: Home-Health Care [facility] 11/14/2023 10:44 AM CDT - 11/14/2023 10:23 PM CDT [facility] [address] [place] [phone] Sergio Raza M.D. Hematuria (Primary Dx); Malfunction Mechanical Urethral Catheter Initial (HCC) Discharge Disposition: Acute Care Hospital 11/14/2023 Documentation Department of Urology in [address] [phone] Sowmya Aviles APRN, C.N.P., M.S.N. 11/14/2023 Intake [facility] 11/10/2023 Clinical Communication Department of Urology in [address] [phone] Burke Strauss M.D. Oncology records request 11/09/2023 11:00 AM CDT Office Visit Department of Urology in [address] [phone] Burke Strauss M.D. Primary Malignant Neoplasm Of Prostate (HCC) (Primary Dx); Retention Urinary Chronic; Hematuria Gross Discharge Disposition: Home or Self Care 11/09/2023 Clinical Communication Department of Urology in [address] [address] Burke Strauss M.D. 10/27/2023 Clinical Communication Department of Urology in [address] [phone] Burke Strauss M.D. 10/14/2023 1:00 PM CDT Procedure visit Department of Urology in [address] [address] Paula Hernandez M.D. Reichmann, Lynne G, R.N. Hematuria 10/14/2023 Documentation Department of Urology in [place], [place] [address] [place] [phone] Paula Hernandez M.D. Catheter Care Plan 09/27/2023 Clinical Communication Department of Urology in [place], [place] [address] [place] [phone] Paula Hernandez M.D. 09/21/2023 Clinical Communication Department of Urology in [place], [place] [address] [place] [phone] Paula Hernandez M.D. 09/16/2023 Clinical Communication Department of Urology in [place], [place] [address] [place] [phone] Provider, Unknown follow up questions 09/16/2023 Orders Only Department of Urology in [place] [address] [place] [phone] Paula Hernandez M.D. Hematuria Gross (Primary Dx) 09/15/2023 Clinical Communication [facility] [address] [place] [phone] Yasmine Loco 09/09/2023 12:10 PM CDT Ancillary Procedure Department of Nursing 09/09/2023 7:24 AM CDT - 09/15/2023 5:28 PM CDT Hospital Encounter [facility], [facility], Sixth Floor [address] [place] [phone] Gerri Merrill M.D., Ph.D. Sumit Holbrook M.D. Hematuria (Primary Dx) Discharge Disposition: Home or Self Care 09/09/2023 Documentation Department of Urology in [place], [place] [address] [place] [phone] Ko Victoria M.D. 09/06/2023 Orders Only Section of Hyperbaric Medicine in [address] [phone] Kira Ferraro APRN, C.N.P., M.S.N. 09/06/2023 Clinical Communication [facility] [address] [place] [phone] Yasmine Loco 09/01/2023 10:05 AM CDT Ancillary Procedure Department of Nursing 08/31/2023 12:36 PM CDT - 08/31/2023 2:31 PM CDT [facility] [address] [place] [phone] Mayur Alvarez M.D. CYSTOSCOPY EVACUATION CLOTS 08/31/2023 12:34 PM CDT Anesthesia Event [facility] [address] [place] [phone] Joe Stoll M.D. Gran, Terry L, ARUN, GAVIN 08/31/2023 12:25 PM CDT Ancillary Procedure Department of General Surgery 08/30/2023 7:35 PM CDT - 09/05/2023 4:09 PM CDT Hospital Encounter [facility], [facility], First Floor [address] [place] [phone] Kirstin Hughes M.D. Thompson, R. Houston, M.D. Hematuria (Primary Dx); Tachycardia; Hematuria Gross Discharge Disposition: Home-Health Care [facility] 08/30/2023 Documentation Department of Urology in [place], [place] [address] [place] [address] Corin Ring M.D. 08/30/2023 Intake [facility] from Last 3 Months Social History Tobacco Use Types Packs/Day Years Used Date Smoking Tobacco: Never Smokeless Tobacco: Never Tobacco Cessation:Counseling Given: Not Answered [facility] Utilities Answer Date Recorded In the past 12 months has [facility] [employer], oil, or water [employer] threatened to shut off services in your [...] your living situation today? [facility] 11/15/2023 Sex and [...] CDT Procedure visit Department of Urology in [place], [place] [address] [place] [address] Burke Strauss M.D. [address] [place] [address] Discharge Disposition: Home or Self Care 12/07/2023 10:30 AM CDT Office Visit Department of Urology in [place], [place] [address] [place] [address] Burke Strauss M.D. [address] [place] [address] Discharge Disposition: Home or Self Care Health [...] Completed 11/14/2023 Medical Devices Implanted Type Area Review Manager Device Identifier Shelf Expiration Date Model / Serial / Lot Clp Hrzn Ti 6 Clp Lg Orng - [id number] Implanted:Qt y: 1 on 08/15/2023 by Boubacar Brock M.D. at [facility] Hardware e.g. pins/screws /rods Abdomen Inet[employer] [id number] 02/29/2028 [id number] / / [id number] Clp Hrzn Ti 6 Clp Lg Orng - [id number] Implanted:Qt y: 1 on 08/15/2023 by Boubacar Brock M.D. at [facility] Hardware e.g. pins/screws /rods Abdomen [employer] [id number] 02/29/2028 [id number] / / [id number] 4 Clp Hrzn Ti 6 Clp Md Monty - [id number] Implanted:Qt y: 1 on 08/15/2023 by Boubacar Brock M.D. at [facility] Hardware e.g. pins/screws /rods Abdomen [employer] [id number] 03/13/2028 [id number] / / [id number] 1 Clp Hrzn Ti 6 Clp Md Monty - [id number] Implanted:Qt y: 1 on 08/15/2023 by Boubacar Brock M.D. at [facility] Hardware e.g. pins/screws /rods Abdomen [employer] [id number] 03/21/2028 [id number] / / [id number] 3 Stnt Uret Inl 6fx24 - [id number] Implanted:Qt y: 1 on 08/15/2023 by Jakob De Paz M.D. at [facility] Ureteral Stent N/A: Ureter C.R.Bard [id number] 11/18/2027 [id number] / / [id number] Procedures Procedure Name Priority Date/Time Associated Diagnosis [...] CDT ECG STAT 08/30/2023 7:44 PM CDT from Last 3 Months Results * (ABNORMAL) CBC without Differential (11/17/2023 7:24 AM CDT) Only the most recent of12 resultswithin the time period is included. Pathologist [facility] Hemoglobin 9.5(L) 13.2 - 16.6 g/dL 11/17/2023 [...] CDT Candelaria Rivas D.O. LAB BLOOD ADD-ON Performing Organization Address City/[facility]/ZIP Co de Phone Number [facility] [address] [place] [address], [facility] MKTO [facility] [place] [address] [place] [address] * (ABNORMAL) Basic Metabolic Panel (11/17/2023 7:24 AM CDT) Only the most recent of9 [...] CDT Candelaria Rivas D.O. LAB BLOOD ADD-ON [facility] [address] [place] [address], [address] [address] * Glucose, POCT (11/17/2023 6:45 AM CDT) Glucose, POCT, B 107 70 - 140 mg/dL 11/17/2023 6:45 AM CDT [facility] Blood 11/17/2023 6:45 AM CDT 11/17/2023 7:03 AM CDT Generic Rals LAB POCT ORDERABLES- MANUAL [facility] [address] [place] [address] * (ABNORMAL) Hemoglobin (11/16/2023 4:43 PM CDT) Only the most recent of2 resultswithin the time period is included. Pathologist [facility] Hemoglobin 9.2(L) 13.2 - 16.6 g/dL 11/16/2023 5:13 PM CDT [facility] Blood (Blood, Venous) 11/16/2023 4:43 PM CDT 11/16/2023 5:10 PM CDT Madelyn Cesar D.O. LAB BLOOD ADD-ON [facility] [address] [place] [address], [place] [address] * (ABNORMAL) CBC with Differential, Blood (11/16/2023 6:25 AM CDT) Only the most recent of5 resultswithin the time period is included. Hemoglobin 9.4(L) 13.2 - 16.6 g/dL 11/16/2023 7:09 AM CDT [facility] Hematocrit 30.2(L) 38.3 - 48.6 % 11/16/2023 [...] CDT Rashawn Vences M.D. LAB BLOOD ADD-ON [facility] [address] [place] [address], [facility] MKTO [facility] [place] [address] [place] [address] * (ABNORMAL) Comprehensive Metabolic Panel (11/16/2023 6:25 AM CDT) Only the most recent of2 resultswithin the time period is included. Pathologist [facility] Potassium, P 4.5 3.6 - 5.2 mmol/L [...] M.D. LAB BLOOD ADD-ON Performing Organization Address City/[facility] Co de Phone Number [facility] [address] [place] [address] * Transfuse Red Blood Cells : (11/15/2023 6:35 PM CDT) Only the most recent of5 resultswithin the time period is included. Madelyn Cesar D.O. BLOOD TRANSFUSION OR DERABLES * Testing Location (11/15/2023 11:09 AM CDT) Testing Location [facility] DEFAULT 11/15/2023 11:47 AM CDT [facility] Blood 11/15/2023 11:0 9 AM CDT 11/15/2023 11:47 AM CDT Sergio Raza M.D. LAB BLOOD BANK TEST ORDERABLES Performing Organization Address [facility] Co de Phone Number [facility] [address] [place] [address], [place] [address] * Coccyx-Wound Ostomy Image Exam (11/15/2023 10:40 [...] RAD IMAGI NG PROCEDURES Performing Organization Address City/[facility]/ZIP Co de Phone Number [facility] NA * ECG 12 Lead (11/15/2023 6:47 AM CDT) Only the most recent of2 resultswithin the time period is included. Ventricular Rate ECG/Min 65 BPM MUSE WV Interval 144 ms MUSE QRSD Interval 76 ms MUSE QT Interval 430 ms MUSE QTC Interval 447 ms MUSE P [place] -7 degrees MUSE R [place] 9 degrees MUSE T Wave [place] 19 degrees MUSE 11/15/2023 6:47 AM CDT [...] to determine due to color interference Specific [place] SEE COMMENT 1.001 - 1.035 11/15/2023 8:03 AM CDT MKTO Comment:Unable to determine due to color interference Urobilinogen SEE COMMENT 0.2 - 1.0 mg/dL 11/15/2023 8:03 AM CDT MKTO Comment:Unable to determine due to color interference Urine (Urine, Midstream) 11/15/2023 6:25 AM CDT 11/15/2023 6:34 AM CDT Sylvie Wright M.D. LAB URI NE ORDERABLES [facility] [address] [place] [address], [facility] [place] [address] * (ABNORMAL) Microscopic Automated (11/15/2023 6:25 AM [...] LAB URI NE ORDERABLES Performing Organization Address [facility] Co de Phone Number [facility] [address] [place] [address] * Bacterial Culture, Aerobic + Susceptibility, Urine (11/15/2023 6:24 AM CDT) Only the most recent of3 resultswithin the time period is included. Urine Culture Urogenital microbiota, susceptibilities not performed per laboratory criteria. 11/16/2023 11:36 AM CDT MKTO Urine (Urine, Indwelling Catheter) 11/15/2023 6:24 AM CDT 11/15/2023 9:29 AM CDT Comment:Specimen Source Site : Urine Mark Marmolejo APRN.N.P., M.S. LAB MICROBIOLOGY - GENERAL ORDERABLES Performing Organization Address [facility] Co de Phone Number [facility] [address] [place] [address] * CT Abdomen Pelvis without IV Contrast [...] BLOOD BANK TEST ORDERABLES Performing Organization Address [facility] Co de Phone Number [facility] [address] [place] [address], [facility] NPRG [address] [address] * Type and Screen (with Reflex Antibody ID) (11/14/2023 11:09 AM CDT) Only the most recent of4 resultswithin the time period is included. ABO [...] BLOOD BANK TEST ORDERABLES Performing Organization Address [facility] Co de Phone Number [facility] [address] [place] [address], [facility] NPRG [address] [address] * Heparin Anti-Xa Assay (09/14/2023 3:19 AM CDT) Only the most recent of7 resultswithin the time period is included. Heparin [...] Sumit Holbrook M.D. LAB BLOOD NON ADD-ON [facility] [address] [place] [address], [facility] [address] [place] [address] * IR Nephrostomy Tube Placement Left (09/13/2023 2:20 PM CDT) Anatomical Region Laterality Modality Genito Urinary, Vascular Int erventional RST LOS, Vascular Interventional ARZ LOS, Vascular Interventional FLA LOS Left X-Ray Angiography Impressions 09/13/2023 2:33 PM CDT Left 10 Croatian percutaneous nephrostomy tube placement. EP Narrative 09/13/2023 [...] tract was further dilated and a 10 Croatian nephrostomy tube was placed with loop formed [...] sedation timewas: 9 minutes. IMPRESSION: Left 10 Croatian percutaneous nephrostomy tube placement. EP Latisha Whitehead M.D. IMG IR PROCEDURE S * Bacterial Culture, Aerobic + Susceptibility (09/13/2023 2:17 PM CDT) Pathologist [facility] Bacterial Culture, Aerobic + Susc No growth after 5 days of incubation. 09/18/2023 12:35 PM CDT DTL Fluid (Kidney, Left) 09/13/2023 2:17 PM CDT 09/13/2023 3:56 PM CDT Comment:Specimen Source Site : Fluid Latisha Whitehead M.D. LAB MICROBIOLOGY - GENERAL ORDERABLES [facility] [address] [place] [address], [facility] [address] [place] [address] * Gram Stain (09/13/2023 2:17 PM CDT) Gram Stain No organisms seen. White blood cells, Rare 09/13/2023 9:02 PM CDT DTL Fluid (Kidney, Left) 09/13/2023 2:17 PM CDT 09/13/2023 3:56 PM CDT Comment:Specimen Source Site : Fluid Latisha Whitehead M.D. LAB MICROBIOLOGY - GENERAL ORDERABLES Performing Organization Address City/[facility]/ZIP Co de Phone Number [facility] [address] [place] [address], [facility] [address] [place] [address] * Fungal Culture, Routine (09/13/2023 2:17 PM CDT) Fungal Culture, Routine No growth after 24 days of incubation. 10/08/2023 1:02 AM CDT DTL Fluid (Kidney, Left) 09/13/2023 2:17 PM CDT 09/13/2023 3:56 PM CDT Comment:Specimen Source Site : Fluid Latisha Whitehead M.D. LAB MICROBIOLOGY - GENERAL ORDERABLES Performing Organization Address City/[facility]/ZIP Co de Phone Number [facility] [address] [place] [address], [facility] [address] [place] [address] * Bacterial Culture, Anaerobic + Susceptibility (09/13/2023 2:17 PM CDT) Bacterial Culture, Anaerobic + Susc No growth after 14 days of incubation. 09/27/2023 8:04 AM CDT DTL Fluid (Kidney, Left) 09/13/2023 2:17 PM CDT 09/13/2023 3:56 PM CDT Comment:Specimen Source Site : Fluid Latisha Whitehead M.D. LAB MICROBIOLOGY - GENERAL ORDERABLES Performing Organization Address City/[facility]/ZIP Co de Phone Number [facility] [address] [place] [address], [facility] DTL [facility] [address] [place] [address] * APTT (Activated Partial Thromboplastin Time) (09/13/2023 5:56 AM CDT) Only the most recent of8 resultswithin the time period is included. Activated Partial Thrombopl Time, P 35 25 - 37 sec 09/13/2023 7:14 AM CDT DTL Blood (Blood, Venous) 09/13/2023 5:56 AM CDT 09/13/2023 6:53 AM CDT Sumit Holbrook M.D. LAB BLOOD ADD-ON [facility] [address] [place] [address], [facility] [address] [place] [address] * NM Kidney DMSA (09/12/2023 12:21 PM [...] The right kidney is atrophic. Procedure Note Fawn, Floresita T, M.D. - 09/12/2023 EXAM: NM KIDNEY DMSA [...] reduced radiotracer uptake asdescribed. Js Yang M.D. [facility] NM PROCEDURES * US Urinary Bladder (09/10/2023 8:41 PM CDT) Only the most recent of2 resultswithin the time period is included. Anatomical Region Laterality Modality Body, Ultrasound RST LOS, Ul trasound ARZ LOS, Ultrasound FLA [facility] Ultrasound Impressions 09/11/2023 8:55 AM CDT [...] 12:09 PM CDT) Only the most recent of2 resultswithin the time period is included. 09/09/2023 12:0 7 PM CDT Narrative [facility] - 09/09/2023 12:09 PM CDT This order has been created and auto-finalized to support the import of images acquired without order. The clinical documentation to support these images can be found on the encounter that produced images. Provider Not In System IMG NON RAD IMAGI NG PROCEDURES Performing Organization Address City/[facility]/ZIP Co de Phone Number [facility] NA * Osmolality, Urine (09/09/2023 11:28 AM CDT) Osmolality, U 380 150 - 1150 mOsm/kg 09/09/2023 12:19 PM CDT DTL Urine 09/09/2023 11:2 8 AM CDT 09/09/2023 11:58 AM CDT Jeffery Church M.D. LAB URINE ORDERA BLES Performing Organization Address City/[facility]/ZIP Co de Phone Number [facility] [address] [place] [address], [facility] DTL [facility] [address] [place] [address] * (ABNORMAL) Dipstick, Urine (09/09/2023 11:28 AM [...] LAB URINE ORDERA BLES Performing Organization Address City/[facility] Co de Phone Number [facility] [address] [place] [address], [facility] [address] [place] [address] * pH, Random, Urine (09/09/2023 11:28 AM CDT) pH, Random, U 6.3 4.5 - 8.0 09/09/2023 12:19 PM CDT DTL Urine 09/09/2023 11:2 8 AM CDT 09/09/2023 11:58 AM CDT Jeffery Church M.D. LAB URINE ORDERA BLES Performing Organization Address [facility] Co de Phone Number [facility] [address] [place] [address], [place] [address] * (ABNORMAL) Microscopic Manual (09/09/2023 11:28 AM [...] LAB URINE ORDERA SHELLY Performing Organization Address [facility]/ZIP Co de Phone Number [facility] [address] [place] [address], [facility] [address] [place] [address] * (ABNORMAL) Gram Stain, Urine (09/09/2023 11:28 AM CDT) Source Urine, Urine, Straight Catheter 09/09/2023 11:58 AM CDT DTL Gram Stain, U Positive(A) Negative 09/09/2023 12:16 PM CDT DTL Comment: Few Gram-negative bacilli ? Yeast Urine 09/09/2023 11:2 8 AM CDT 09/09/2023 11:58 AM CDT Jeffery Church M.D. LAB URINE ORDERHelga BRAVO Performing Organization Address [facility] Co de Phone Number [facility] [address] [place] [address], [facility] [address] [place] [address] * (ABNORMAL) Urinalysis, with Microscopic: Urine, Straight [...] 09/09/2023 1:02 PM CDT DTL Predicted Range 2480-40954 mg/24 h 09/09/2023 1:02 PM CDT DTL Comment Micro done on <2.5 mL 09/09/2023 12:27 PM CDT DTL Urine (Urine, Straight Catheter) 09/09/2023 11:28 AM CDT 09/09/2023 11:58 AM CDT Jeffery Church M.D. LAB URINE ORDERA BLES [facility] [address] [place] [address], [facility] DTL [facility] [address] [place] [address] * [place] Kidneys Bilateral with Bladder (09/09/2023 [...] CDT Jeffery Church M.D. LAB BLOOD ADD-ON [facility] [address] [place] [address], [facility] [address] [place] [address] * Potassium (09/05/2023 4:56 AM CDT) Potassium, S 3.6 3.6 - 5.2 mmol/L 09/05/2023 5:49 AM CDT DTL Blood (Blood, Venous) 09/05/2023 4:56 AM CDT 09/05/2023 5:22 AM CDT Roxy Romero M.D. LAB BLOOD ADD-ON [facility] [address] [place] [address], [place] DTL [facility] [address] [place] [address] * [place] Fluoro Less Than 1 Hour [...] Correa D.O., M.H.A. LAB BLOOD NON ADD-ON [facility] [address] [place] [address], [facility] [address] [place] [address] * DX Chest AP or PA and [...] stenting.Degenerative changes thoracic spine. Shannan Correa D.O., M.H.AJonah IMG DIAGNOSTIC IMAGING PROCEDURES from Last 3 Months Advance Directives For more information, please contact: [phone] * Full Code (Latest Code Status on [...] Answer Comments Full Code: Discussed Care Teams Diesel Locomotive Engineer Relationship Specialty Start Date End Date Elsewhere, Pcp PCP - General Internal Medicine 08/13/23
--- OUTSIDE RECORDS SUMMARY | 2023-11-28 08:19 | XMS_ITS | Clinical Summary ---
Author Organization [facility] Address [address] [place] [id number] Care Team Providers Care Clinical Laboratory Aides Teacher Name Role Phone Cesar Mccollum Primary Care Provider [phone] Allergies No known active allergies Medications Medication [...] this topic Medical Devices Implanted Type Area Chief Financial Officer Device Identifier Shelf Expiration Date Model / Serial / Lot Stent Ureteral Polaris Ultra [id number] - [id number] Implanted:Qty : 1 on 02/08/2022 by Nicola Ware MD at [facility] Stent Right: Ureter [employer] [id number] 10/08/2024 [id number] Explanted Type Area Chief Financial Officer Device Identifier Shelf Expiration Date Model / Serial / Lot Stent Came Out Of The Right Ureter Explanted:Qty: 1 on 02/08/2022 by Nicola Ware MD at [facility] Right: Urethra Advance Directives For more information, please contact: [phone] Documents on File Type Date Recorded 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
--- OUTSIDE RECORDS SUMMARY | 2023-11-28 08:19 | XMS_ITS | Referral Summary ---
Author Organization [facility] Address [address] [place] [address] Care Team Providers Care Apprentice Machinist Outside Name Role Phone Cesar Mccollum Primary Care Provider [phone] Allergies No known active allergies Medications Medication [...] on file Medical Devices Implanted Type Area Engineer Assistant Device Identifier Shelf Expiration Date Model / Serial / Lot Stent Ureteral Polaris Ultra [id number] - [id number] Implanted:Qty : 1 on 02/08/2022 by Nicola Ware MD at [facility] Stent Right: [employer]ter [employer] [id number] 10/08/2024 [id number] Explanted Type Area Engineer Assistant Device Identifier Shelf Expiration Date Model / Serial / Lot Stent Came Out Of The Right Ureter Explanted:Qty: 1 on 02/08/2022 by Nicola Ware MD at [facility] Right: Urethra Advance Directives For more information, please contact: [phone] Documents on File Type Date Recorded Patient Library Aide Expl anation Advance Directives and Living Will 02/17/2022 Health Care Directiv e 05/15/2021 Healthcare Agents on File Name Relationship Healthcare Agent Relationship Communication Mindy Waterman Daughter Co-First Alterna te Health Care Agent Meera Vega Spouse Health Care Agent [phone] (Home) Favio Vega Son Co-First Altern ate Health Care Agent Tereso Vega Son Co-First Alterna te Health Care Agent Care Teams Apprentice Machinist Outside Relationship Specialty Start Date End Date Cesar Mccollum [address] [place] [address] PCP - General Family Medicine 11/22/22
--- OUTSIDE RECORDS SUMMARY | 2023-11-28 08:20 | XMS_ITS | Encounter Summary ---
Author Organization [facility] Address [address] [place] [address] Care Team Providers Care Entry Level Java Developer Name Role Phone Elsewhere, Pcp Primary Care Provider Unavailabl e Reason for Referral * Outpatient (Routine) - Authorized Specialty Diagnoses / Procedures Referred By Contac t Referred To Contact Diagnoses Hematuria Gross Gabe Buckley M.D. [address] [place] [phone] Referral ID Status Reason Start Date Expiration Date V isits Requested Visits Authorized [id number] Authorized 11/17/2023 05/18/2025 1 1 * Outpatient (Routine) - Authorized Specialty Diagnoses / Procedures Referred By Contac t Referred To Contact Community Internal Medicine Gabe Buckley M.D. [address] [place] [phone] [facility] Referral ID Status Reason Start Date Expiration Date V isits Requested Visits Authorized [id number] Authorized 11/17/2023 05/18/2025 1 1 Scheduling Instructions 3-5 Days After Discharge Encounter Details Date Type Department Care Team (Late st Contact Info) Description 11/14/2023 11:38 PM CDT - 11/17/2023 3:55 PM CDT Hospital Encounter [facility], [facility], Fifth Floor [address] [place] [phone] Eliceo Guerrier M.D., Ph.D. [address] [place] [phone] Sylvie Álvarez M.B.B.S., Maverick [address] [place] [phone] Rashawn Vences M.D. [address] [place] [phone] Gabe Buckley M.D. [address] [place] [phone] Smith Peter (Primary Dx) Discharge Disposition: Home-Health Care Svc Social History Tobacco Use Types Packs/Day Years Used Date Smoking Tobacco: Never Smokeless Tobacco: Never [facility] Utilities Answer Date Recorded In the past 12 months has [facility] [employer], gas, oil, or water CME threatened to shut off services in your [...] [facility] place to live 11/15/2023 Sex and [...] DISCHARGE SUMMARY BRIEF OVERVIEW Discharge Hospital: Hospital: [facility] Discharge Provider: Gabe Buckley M.D. Primary Care Providers: Dr. 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 Cesar Mccollum to discuss restarting OUTPATIENT FOLLOW UP Scheduled Appointments 12/07/2023 10:15 AM [facility] MULTI SPECIALTY NURSE 01 NPNC; URO [...] filter and chronic pressure wounds presented to [place] 11/14/23 gross hematuria including around his indwelling [...] discussed with Dr. Gabe Rivas DO. PGY-1 [facility] Family Medicine Residency [place] Associated attestation - Gabe Buckley M.D. - [...] Take 10 mg by mouth every morning. documented as of this encounter Progress Notes * Chary Romero L.I.C.SHilario. - 11/17/2023 2:18 PM CDT SUBJECTIVE Patient is a 83 y.o. male who was admitted to [facility] 11/14/2023 due to Hematuria Gross [R31.0]. Patient was accompanied by son, Kar. This conventional underwriter finalized arrangements for resumption of home health care services. 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 INTERVENTION This conventional underwriter sent a service reconnection, including resumption of care order, to resumption of home health care services to [facility] as the fax number matches the fax number provided by intake earlier in the week. PLAN Patient will discharge home today with family and resumption of home health care services. * Nereida Bolton RDN, SEBASTIAN - 11/17/2023 12:40 PM CDT Clinical Note [...] Muscle Mass: Normal Fluid Accumulation: Absent Reduced [place] Line Attendant Strength: Not applicable This is in the [...] y.o. male who was admitted to [facility] 11/14/2023 due to Hematuria Gross [R31.0]. Patient was accompanied by daughter (Mindy) and son (Kar). This conventional underwriter continues to assist in home health care reconnection. 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 INTERVENTION Patient's daughter, Mindy, provided this conventional underwriter with contact information for Doreen Javier, nurse career technical education teacher for [facility]; [phone]. This conventional underwriter left Doreen a voicemail, requesting a [...] bag -monitor CMP for kidney function -continue OPTICAL TECHNICIAN tamsulosin -continue OPTICAL TECHNICIAN enzalutamide -urine culture, per urology # Coronary artery disease without angina pectoris, status post 6 stents # History of DVTs, status post IVC filter # Hyperlipidemia Is on both Plavix and Xarelto at home. -start Xarelto 11/16/2023 so response can be monitored while hospitalized -continue OPTICAL TECHNICIAN amlodipine -continue OPTICAL TECHNICIAN rosuvastatin -continue OPTICAL TECHNICIAN metoprolol # Chronic Pressure Wound, Coccyx -continue wound care -offloading as much as possible Non-severe (moderate) Malnutrition (11/15/23) The patient meets the ASPEN Criteria of malnutrition based on: Energy Intake: Less than 75% of estimated energy requirement for greater than or equal to 1 month Interpretation of Weight Loss: 7.5% 3 months Body Fat: Normal Muscle Mass: Normal Fluid Accumulation: Absent Reduced [place] Line Attendant Strength: Not applicable This is in the [...] examined by me and Gabe Buckley M.D. Candelaria Rivas DO. PGY-1 [facility] Medicine Residency [place] Associated attestation - Gabe Buckley M.D. - 11/16/2023 6:25 PM CDT I saw and evaluated the patient, participating in the henderson portions of the service. I reviewed the resident/fellow???s note. I agree with the resident/fellow???s findings and plan. 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 - [...] recommendations -monitor CMP for kidney function -continue OPTICAL TECHNICIAN tamsulosin -continue OPTICAL TECHNICIAN enzalutamide -urine culture, per urology # Coronary artery disease without angina pectoris, status post 6 stents # History of DVTs, status post IVC filter # Hyperlipidemia Is on both Plavix and Xarelto at home. Urology recommendations on restarting blood thinners. -may consider restarting one or both on 11/16/2023 so response can be monitored while hospitalized -continue OPTICAL TECHNICIAN amlodipine -continue OPTICAL TECHNICIAN rosuvastatin -continue OPTICAL TECHNICIAN metoprolol # Chronic Pressure Wound, Coccyx -continue wound care -offloading as much as possible Non-severe (moderate) Malnutrition (11/15/23) The patient meets the ASPEN Criteria of malnutrition based on: Energy Intake: Less than 75% of estimated energy requirement for greater than or equal to 1 month Interpretation of Weight Loss: 7.5% 3 months Body Fat: Normal Muscle Mass: Normal Fluid Accumulation: Absent Reduced [place] Line Attendant Strength: Not applicable This is in the [...] examined by me and Rashawn Vences M.D. Candelaria Rivas DO. PGY-1 [facility] Medicine Residency [place] Associated attestation - Rashawn Vences M.D. - [...] other issues. He showed up in the [facility] room yesterday with complaints of a [...] documented in this encounter H&P Notes * Sylvie Álvarez M.B.B.S., M.D. - 11/15/2023 12:26 AM CDT [...] and visits for hematuria. Patient presented at [facility] yesterday because of bleeding around his [place] [...] vomiting, no abdominal pain. Patient presented at [facility] where urology was contacted, manual bladder irrigation [...] FLEXIBLE N/A 08/15/2023 Procedure: CYSTOSCOPY FLEXIBLE; Surgeon: Buobacar Brock M.D.; Location: RST ROMB OR EXPLORATORY [...] anemia, hemoglobin now 8.2. Patient presented to [place] [facility] ED because of bleeding around his [place] catheter. At [facility], patient had manual bladder irrigation with normal [...] this encounter Consult Notes * Yessy Khan, LARRYN, LD - 11/15/2023 12:22 PM CDTAssociated Order(s): Dietitian consult (hospital); Dietitian Consult (Hospital) Dietitian Consult (Hospital) Referring Provider: Best Practice Advisory, Instant O Dietitian consult ([facility]) Referring Provider: Malcolm Practice Advisory, Instant O Clinical Note Types: Initial Assessment/Consult NUTRITION VISIT [...] had lost 28lbs during his stay in [place] as he was NPO for12 days then [...] Muscle Mass: Normal Fluid Accumulation: Absent Reduced [place] Line Attendant Strength: Not applicable This is in the [...] 84.1 kg BMI (Calculated): 26.6 kg/m?? % [place] Body Weight: 111 % IBW Adjusted Body [...] Intake, Nausea/Vomiting/Diarrhea * Chary Romero L.I.C.S.W. 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 Has another son (Kar) and a daughter (Mindy). Support System: spouse and children Spirituality/Faith/Cultural Factors: None History: No Highest Level of [...] Cooperative, Oriented Communication: Talks, Understands speaking, Understands Korean Shopping: Appropriate to age/development Medication Management: Independent Housekeeping: Appropriate to age/development Meal Prep: Appropriate to age/development Assistive Devices: Eyeglasses, Hearing aid(s) Agency Name: [facility] Services Provided: [facility] once weekly for wound care, PT, social work, Doreen-RN career technical education teacher Transportation: Support from family Baseline Services/Resources Primary care clinic and provider: ELSEWHERE, PCP Anticipated Needs Functional Status: Tasks appropriate to patient's age/development, Transportation use (drive car, use taxi/bus) Assistive Devices: Eyeglasses, Hearing aid(s) Services/Resources: Home health Agency Name: [facility] Provided: [facility] once weekly for wound care, PT, social work, Doreen-RN career technical education teacher Does the patient need discharge transport arranged?: No Anticipated Discharge Destination: Home-Health Care [facility] OBJECTIVE Substance Abuse no symptoms Mental Health Mental Health History: Patient reports no mental health history Patient reports no current concerns Mental Health Treatment History No history of Psychiatric Treatment noted Suicide Risk and Safety Risk Assessment: C-SSRS Short Version: [place] Suicide Severity Rating Scale (Do this one [...] a wound clinic the other day. This conventional underwriter spoke to intake with [facility] however the only information provided is that patient is served by the [facility] location and receives mcc, physical therapy, and social work and the fax number for discharge paperwork was provided. Interventions Psychosocial assessment completed. Provided supportive services. Provided education regarding the role of social work. Plan It is anticipated patient will return home with family and resume services through [facility]. Martha Gardiner 11/15/2023 * Jerri Toledo, Terri., C.W.C.N., [facility] - 11/15/2023 10:54 AM CDTAssociated Order(s): IP [...] and visits for hematuria. Patient presented at [place] yesterday because of bleeding around his [place] [...] vomiting, no abdominal pain. Patient presented at [facility] where urology was contacted, manual bladder irrigation with normal saline was performed, and patient was started on CBI. Patient transferred to [place] for further management. WOUND ASSESSMENT: Wound Type: Pressure Injury MC IP Pressure Injury Staging: Stage 3 Wound Location: Coccyx Wound Orientation: Mid Wound Tunnel/Induration: Length 1 cm, Width 0.5 cm, and Depth 0.3 cm. Wound Bed Tissue: Red and Granulation tissue 100% Leslee-Wound Skin: Blanchable erythema, Maceration, and [place] PLAN: COCCYX: DAILY 1. Cleanse wound with [...] limit sliding down in chair. Please contact [facility] RNs if you have any question or concerns regarding wound care. Jerri Toledo R.N., NIKOSON at [phone] Starla Méndez R.N., LE at [phone] * Zachery Tanner APRN, C.N.P., MJonahS. - 11/15/2023 8:06 AM CDTAssociated Order(s): Urology [...] follows with Medical Oncology Dr. Tan in [place], [place]. Right hydronephrosis and right atrophic kidney [...] 08/30. Currently undergoing outpatient hyperbaric O2 in [facility]. Mr. Vega currently admitted to [facility] in the setting of recurrent gross hematuria. He wasseen in evaluation at [facility] Emergency Department in the setting of concern [...] in comparison to historical imaging. Ultimately [address] catheter was placed and patient was hand irrigated and initiated on CBI.Patient was transferred to [facility] for ongoing management. Urinalysis 11/15/2023 with greater [...] undergoing outpatient HBO (hyperbaric oxygenation therapy) in [facility]. Recommend to continue HBO in the outpatient [...] hematuria. Outpatient appointment scheduled on 12/07/2023 in [place] with Urology. Could consider discussion about catheter removal/formal voiding trial in the outpatient setting as to limit catheter irritation/potential infection risk contributing to hematuria. Significant pyuria on urinalysis in the setting of his gross hematuria would recommend urine culture. 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 Tan in [place], [place]. Per subjective report today undetectable PSA. [...] discussed with Dr. Valdez. Zachery Tanner APRN CAUL DRESSER Associated attestation - Manav Valdez M.D. - [...] encounter Nursing Notes * Bety Wu M.S.N., RJonahN. - 11/17/2023 3:55 PM CDT INPATIENT NURSING [...] Summary: Pt is a direct admit from [place] [facility] ED. He has chronic indwelling catheter, with prostate cancer history. He noticed urine was bloody red. While being seen in [place], 3 waycatheter was inserted and CBI started. [...] filter and chronic pressure wounds presented to [facility] 11/14/23 gross hematuria including around his indwelling [...] Procedure visit Department of Urology in [address] [phone] Burke Strauss M.D. [address] [place] [phone] Discharge Disposition: Home or Self Care 12/07/2023 10:30 AM CDT Office Visit Department of Urology in [address] [phone] Burke Strauss M.D. [address] [place] [phone] Discharge Disposition: Home or Self Care Pending Results Name Type Priority Associated Diagnoses Date /Time Prepare Red Blood Cells, 1 Units Blood Bank Routine 11/14/2023 11:09 AM CDT Scheduled Referrals Name Type Priority Associated Diagnoses Order Schedule Transitional care post hospital clinic Outpatient Referral Routine 1 Occurrences starting 11/17/2023 until 02/14/2025 [facility] referral Outpatient Referral Routine Hematuria Gross Ordered: [...] CDT Candelaria Rivas D.O. LAB BLOOD ADD-ON [facility] [address] [place] [address], [facility] [address] * (ABNORMAL) Basic Metabolic Panel (11/17/2023 7:24 [...] CDT Candelaria Rivas D.O. LAB BLOOD ADD-ON [facility] [address] [place] [address], [place] [address] * Glucose, POCT (11/17/2023 6:45 AM CDT) Glucose, POCT, B 107 70 - 140 mg/dL 11/17/2023 6:45 AM CDT MKTO Blood 11/17/2023 6:45 AM CDT 11/17/2023 7:03 AM CDT Generic Rals LAB POCT ORDERABLES- MANUAL [facility] [address] [place] [address], [place] [address] * (ABNORMAL) Hemoglobin (11/16/2023 4:43 PM CDT) Hemoglobin 9.2(L) 13.2 - 16.6 g/dL 11/16/2023 5:13 PM CDT MKTO Blood (Blood, Venous) 11/16/2023 4:43 PM CDT 11/16/2023 5:10 PM CDT Madelyn Cesar D.O. LAB BLOOD ADD-ON [facility] [address] [place] [address], [facility] MKTO [facility] [place] [address] [place] [address] * (ABNORMAL) Comprehensive Metabolic Panel (11/16/2023 6:25 [...] CDT Rashawn Vences M.D. LAB BLOOD ADD-ON [facility] [address] [place] [address], [facility] MKTO [place] [address] * (ABNORMAL) CBC with Differential, Blood (11/16/2023 [...] M.D. LAB BLOOD ADD-ON Performing Organization Address City/State/[facility] Co de Phone Number [facility] [address] [place] [address], [facility] [place] [address] [place] [address] * Transfuse Red Blood Cells : (11/15/2023 6:35 PM CDT) Madelyn Cesar D.O. BLOOD TRANSFUSION OR DERABLES * Transfuse Red Blood Cells : , 1 Units (11/15/2023 6:35 PM CDT) Madelyn Cesar D.O. BLOOD TRANSFUSION OR DERABLES * (ABNORMAL) Comprehensive Metabolic Panel (11/15/2023 7:31 AM CDT) [facility] Potassium, P 4.2 3.6 - 5.2 mmol/L [...] Sylvie Wright M.D. LAB BLO OD ADD-ON [facility] [address] [place] [address], [facility] MKTO [facility] [place] [address] [place] [address] * (ABNORMAL) CBC with Differential, Blood (11/15/2023 7:31 AM CDT) [facility] Hemoglobin 7.7(L) 13.2 - 16.6 g/dL 11/15/2023 [...] Sylvie Wright M.D. LAB BLO OD ADD-ON [facility] [address] [place] [address], [facility] MKTO [facility] [place] [address] [place] [address] * ECG 12 Lead (11/15/2023 6:47 AM CDT) Ventricular Rate ECG/Min 65 BPM MUSE PA Interval 144 ms MUSE QRSD Interval 76 ms MUSE QT Interval 430 ms MUSE QTC Interval 447 ms MUSE P [place] -7 degrees MUSE R [place] 9 degrees MUSE T Wave [place] 19 degrees MUSE 11/15/2023 6:47 AM CDT [...] Sylvie Wright M.D. LAB URI NE ORDERABLES [facility] [address] [place] [address], [facility] MKTO [facility] [place] [address] [place] [address] * (ABNORMAL) Urinalysis with Microscopic if Indicated [...] to determine due to color interference Specific [place] SEE COMMENT 1.001 - 1.035 11/15/2023 8:03 AM CDT MKTO Comment:Unable to determine due to color interference Urobilinogen SEE COMMENT 0.2 - 1.0 mg/dL 11/15/2023 8:03 AM CDT MKTO Comment:Unable to determine due to color interference Urine (Urine, Midstream) 11/15/2023 6:25 AM CDT 11/15/2023 6:34 AM CDT Sylvie Wright M.D. LAB URI NE ORDERABLES Performing Organization Address City/[facility] Co de Phone Number [facility] [address] [place] [address] * Bacterial Culture, Aerobic + Susceptibility, Urine (11/15/2023 6:24 AM CDT) Pathologist [facility] Urine Culture Urogenital microbiota, susceptibilities not performed per laboratory criteria. 11/16/2023 11:36 AM CDT [facility] Urine (Urine, Indwelling Catheter) 11/15/2023 6:24 AM CDT 11/15/2023 9:29 AM CDT Comment:Specimen Source Site : Urine Estrella Marmolejo APRNN.P., M.S. LAB MICROBIOLOGY - GENERAL ORDERABLES Performing Organization Address City/[facility] Co de Phone Number [facility] [address] [place] [address], [place] [address] documented in this encounter Visit Diagnoses Diagnosis Hematuria Gross- Primary Hematuria Gross Primary Malignant Neoplasm Of Prostate (HCC) Anemia In Neoplastic Disease Group Home Current Use Of Other Agents Affecting Estrogen Receptors And Estrogen Levels Hypertension Essential Primary Hyperlipidemia Deficiency Iron Radiation Therapy Proctitis Atherosclerotic Heart Disease Of [place] Coronary Artery Without Angina Pectoris Inferior Vena Cava Filter Group Home (Current) Anticoagulant Treatment documented in this encounter [...] at 0900 0934 (Given - Provider: Solitario Gonzalez R.N.) 0952 (Given - Provider: Dorothea Lynch RNarendra) 0801 (Given - Provider: Arik Jolly, R.N.) [...] med- asked pt family to bring in.) 0801 (Not Given - Provider: Arik Jolly, R.N. [...] 1414 (Given - Provider: Dorothea Lynch R.N.) 08 (Given - Provider: Jose Roberto Jolly.S.NJonah, R.N.) rosuvastatin tablet 40 mg (Crestor) 40 mg, oral, Daily at bedtime, First dose on Tue11/15/23 at 0030 010 (Given - Provider: Nuvia Ocasio R.N.)2010 [...] 0952 (Given - Provider: Dorothea Lynch R.N.) 08 (Given - Provider: Jose Roberto Jolly.S.NJonah, R.N.) tamsulosin 24 hr capsule 0.4 mg (Flomax) 0.4 mg, oral, Daily at bedtime, First dose on Tue11/15/23 at 0030, Swallow whole. Do NOT crush, chew or open capsule. 100 (Given - Provider: Nuvia Ocasio R.N.)2010 (Given [...] R.N.) documented in this encounter Care Teams Entry Level Java Developer Relationship Specialty Start Date End Date Elsewhere, Pcp PCP - General Internal Medicine 08/13/23 documented as of this encounter
--- OUTSIDE RECORDS SUMMARY | 2023-11-28 08:20 | XMS_ITS | Referral Summary ---
Author Organization [facility] Address [address] [place] [address] Care Team Providers Care Lens Blank Gauger Name Role Phone Elsewhere, Pcp Primary Care Provider Unavailabl e Source Comments Patient records contain information from all sites at [facility]. For routine questions regarding patient records, call [phone] during business hours, M-F 8:00 AM - 5:00 PM Central Time. Record requests for emergency care only can be directed to [phone] at any time.[facility] Encounters Date Type Department Care Team Description 11/14/2023 11:38 PM CDT - 11/17/2023 3:55 PM CDT Hospital Encounter [facility], Fifth Floor [address] [place] [address] Eliceo Guerrier M.D., Ph.D. Sylvie Álvarez M.B.B.S., M.Craig. Rashanw Vences M.D. Gabe Buckley M.D. Hematuria Gross (Primary Dx) Discharge Disposition: Home-Health Care [facility] 11/15/2023 10:40 AM CDT Ancillary Procedure Department of Wound Ostomy 11/14/2023 Documentation Department of Urology in [place] [address] Sowmya Aviles APRN CJonahN.PJonah, M.S.N. 11/14/2023 Intake [facility] 11/14/2023 10:44 AM CDT - 11/14/2023 10:23 PM CDT Emergency [facility] [address] [place] [phone] Sergio Raza M.D. Hematuria (Primary Dx); Malfunction Mechanical Urethral Catheter Initial (HCC) Discharge Disposition: [facility] 11/10/2023 Clinical Communication Department of Urology in [address] [address] Burke Strauss M.D. Oncology records request 11/09/2023 Clinical Communication Department of Urology in [address] [address] Burke Strauss M.D. 11/09/2023 11:00 AM CDT Office Visit Department of Urology in [address] [address] Burke Strauss M.D. Primary Malignant Neoplasm Of Prostate (HCC) (Primary Dx); Retention Urinary Chronic; Hematuria Gross Discharge Disposition: Home or Self Care 10/27/2023 Clinical Communication Department of Urology in [address] [address] Burke Strauss M.D. 10/14/2023 Documentation Department of Urology in [place], [place] [address] [place] [address] Paula Hernandez M.D. Catheter Care Plan 10/14/2023 1:00 PM CDT Procedure visit Department of Urology in [place], [place] [address] [place] [address] Paula Hernandez M.D. Reichmann, Lynne G, R.N. Hematuria 09/27/2023 Clinical Communication Department of Urology in [place], [place] [address] [place] [phone] Paula Hernandez M.D. 09/21/2023 Clinical Communication Department of Urology in [place], [place] [address] [place] [phone] Paula Hernandez M.D. 09/16/2023 Clinical Communication Department of Urology in [place], [place] [address] [place] [phone] Provider, Unknown follow up questions 09/16/2023 Orders Only Department of Urology in [place], [place] [address] [place] [phone] Paula Hernandez M.D. Hematuria Gross (Primary Dx) 09/15/2023 Clinical Communication [facility] [address] [place] [phone] Yasmine Loco 09/09/2023 7:24 AM CDT - 09/15/2023 5:28 PM CDT Hospital Encounter [facility], Sixth Floor [address] [place] [phone] Gerri Merrill M.D., Ph.D. Sumit Holbrook M.D. Hematuria (Primary Dx) Discharge Disposition: Home or Self Care 09/09/2023 12:10 PM CDT Ancillary Procedure Department of Nursing 09/09/2023 Documentation Department of Urology in [place], [place] [address] [place] [phone] Ko Victoria M.D. 09/06/2023 Orders Only Section of Hyperbaric Medicine in [address] [address] Kira Ferraro APRN, C.N.P., M.S.N. 09/06/2023 Clinical Communication [facility] [address] [place] [phone] Yasmine Loco 08/30/2023 7:35 PM CDT - 09/05/2023 4:09 PM CDT Hospital Encounter [facility], First Floor [address] [place] [phone] Kirstin Hughes M.D. Thompson, R. Houston, M.D. Hematuria (Primary Dx); Tachycardia; Hematuria Gross Discharge Disposition: Home-Health Care [facility] 09/01/2023 10:05 AM CDT Ancillary Procedure Department of Nursing 08/31/2023 12:25 PM CDT Ancillary Procedure Department of General Surgery 08/31/2023 12:34 PM CDT Anesthesia Event [facility] [address] [place] [phone] Joe Stoll M.D. Gran, Terry L, APRN, GAVIN 08/31/2023 12:36 PM CDT - 08/31/2023 2:31 PM CDT Surgery [facility] [address] [place] [phone] Mayur Alvarez M.D. CYSTOSCOPY EVACUATION CLOTS 08/30/2023 Documentation Department of Urology in [place], [place] [address] [place] [address] Corin Ring M.D. 08/30/2023 Intake [facility] [...] teral 11/15/2023 Atherosclerotic Heart Diseas e Of [place] Coronary Artery Without Angina Pectoris 11/15/2023 Overview (11/15/2023): stent placements 2017 Complication Procedure Initial 11/15/2023 Deficiency Iron 11/15/2023 Hyperlipidemia 11/15/2023 Hypertension Essential Primary 11/15/2023 Director Personal Current Use Of Oth er Agents Affecting Estrogen Receptors And Estrogen Levels 11/15/2023 Presence Of Other Vascular Implants And Grafts 0 11/15/2023 Other Specified Disorders Of Bladder 11/15/2023 Other Retention Of Urine 11/15/2023 PreDiabetes 11/15/2023 Presence Of Urogenital Implants 11/15/2023 Unspecified Complication Of Genitourinary Prosthetic Device Implant And Graft Initial 11/15/2023 Inferior Vena Cava Filter 11/15/2023 Director Personal (Current) Anticoagulant Treatment 09/2023 Presence Of Other [...] Tobacco: Never Tobacco Cessation:Counseling Given: Not Answered [facility] Utilities Answer Date Recorded In the past 12 months has [facility] [employer], oil, or water [employer] threatened to shut off services in your [...] your living situation today? I have a [facility] place to live 11/15/2023 Sex and [...] CDT Procedure visit Department of Urology in [place], [place] [address] [place] [address] Burke Strauss M.D. [address] [place] [address] Discharge Disposition: Home or Self Care 12/07/2023 10:30 AM CDT Office Visit Department of Urology in [place], [place] [address] [place] [address] Burke Strauss M.D. [address] [place] [address] Discharge Disposition: Home or Self Care Medical Devices Implanted Type Area Farmworker Animal Device Identifier Shelf Expiration Date Model / Serial / Lot Clp Hrzn Ti 6 Clp Lg Orng - [id number] Implanted:Qt y: 1 on 08/15/2023 by Boubacar Brock M.D. at [facility] Hardware e.g. pins/screws /rods [employer]domen [employer] [id number] 02/29/2028 [id number] / / [id number] Clp Hrzn Ti 6 Clp Lg Orng - [id number] Implanted:Qt y: 1 on 08/15/2023 by Boubacar Brock M.D. at [facility] Hardware e.g. pins/screws /rods [employer]domen [employer] [id number] 02/29/2028 [id number] / / [id number] Clp Hrzn Ti 6 Clp Md Monty - [id number] Implanted:Qt y: 1 on 08/15/2023 by Boubacar Brock M.D. at [facility] Hardware e.g. pins/screws /rods Abdomen [employer]flex [employer] [id number] 03/13/2028 [id number] / / [id number] 1 Clp Hrzn Ti 6 Clp Md Monty - [id number] Implanted:Qt y: 1 on 08/15/2023 by Boubacar Brock M.D. at [facility] Hardware e.g. pins/screws /rods Abdomen [employer] [id number] 03/21/2028 [id number] / / [id number] 3 Stnt Uret Inl 6fx24 - [id number] Implanted:Qt y: 1 on 08/15/2023 by Jakob De Paz M.D. at [facility] Ureteral Stent N/A: Ureter [employer] [id number] 11/18/2027 [id number] / / [id number] Procedures Procedure Name Priority Date/Time Associated Diagnosis [...] D.O. LAB BLOOD ADD-ON [facility] [place] [address], [facility] MKTO [facility] in [place] [address] [place] [address] * (ABNORMAL) Basic Metabolic Panel (11/17/2023 7:24 [...] D.O. LAB BLOOD ADD-ON [facility] [address] [place] [address] * Glucose, POCT (11/17/2023 6:45 AM CDT) Glucose, POCT, B 107 70 - 140 mg/dL 11/17/2023 6:45 AM CDT MKTO Blood 11/17/2023 6:45 AM CDT 11/17/2023 7:03 AM CDT Generic Rals LAB POCT ORDERABLES- MANUAL [facility] [address] [place] [address] * (ABNORMAL) Hemoglobin (11/16/2023 4:43 PM CDT) Only the most recent of2 resultswithin the time period is included. Pathologist [facility] Hemoglobin 9.2(L) 13.2 - 16.6 g/dL 11/16/2023 5:13 PM CDT MKTO Blood (Blood, Venous) 11/16/2023 4:43 PM CDT 11/16/2023 5:10 PM CDT Madelyn Cesar D.O. LAB BLOOD ADD-ON [facility] [address] [place] [address], [facility] in [place] [address] [place] [address] * (ABNORMAL) CBC with Differential, Blood (11/16/2023 6:25 AM CDT) Only the most recent of5 resultswithin the time period is included. Pathologist [facility] Hemoglobin 9.4(L) 13.2 - 16.6 g/dL 11/16/2023 [...] Rashawn Vences M.D. LAB BLOOD ADD-ON [facility] [address] [place] [address], [facility] MKTO [facility] in [place] [address] [place] [address] * (ABNORMAL) Comprehensive Metabolic Panel (11/16/2023 6:25 [...] Rashawn Vences M.D. LAB BLOOD ADD-ON [facility] [place] [address], [facility] MKTO [facility] [place] [address] * Transfuse Red Blood Cells : (11/15/2023 [...] BLOOD BANK TEST ORDERABLES Performing Organization Address City/[facility]/ZIP Co de Phone Number [facility] [address] [place] [address], [facility] MKTO [facility] in [place] [address] [place] [address] * Coccyx-Wound Ostomy Image Exam (11/15/2023 10:40 [...] RAD IMAGI NG PROCEDURES Performing Organization Address City/[facility] Co de Phone Number [facility] NA * ECG 12 Lead (11/15/2023 6:47 AM CDT) Only the most recent of2 resultswithin the time period is included. Ventricular Rate ECG/Min 65 BPM MUSE OR Interval 144 ms MUSE QRSD Interval 76 ms MUSE QT Interval 430 ms MUSE QTC Interval 447 ms MUSE P [place] -7 degrees MUSE R [place] 9 degrees MUSE T Wave [place] 19 degrees MUSE 11/15/2023 6:47 AM CDT [...] to determine due to color interference Specific [place] SEE COMMENT 1.001 - 1.035 11/15/2023 8:03 AM CDT MKTO Comment:Unable to determine due to color interference Urobilinogen SEE COMMENT 0.2 - 1.0 mg/dL 11/15/2023 8:03 AM CDT MKTO Comment:Unable to determine due to color interference Urine (Urine, Midstream) 11/15/2023 6:25 AM CDT 11/15/2023 6:34 AM CDT Sylvie Wright M.D. LAB URI NE ORDERABLES Performing Organization Address [facility] Co de Phone Number [facility] [address] [place] [address], [place] [address] * (ABNORMAL) Microscopic Automated (11/15/2023 6:25 AM [...] LAB URI NE ORDERABLES Performing Organization Address [facility] Co de Phone Number [facility] [address] [place] [address], [place] [address] * Bacterial Culture, Aerobic + Susceptibility, Urine (11/15/2023 6:24 AM CDT) Only the most recent of3 resultswithin the time period is included. Urine Culture Urogenital microbiota, susceptibilities not performed per laboratory criteria. 11/16/2023 11:36 AM CDT MKTO Urine (Urine, Indwelling Catheter) 11/15/2023 6:24 AM CDT 11/15/2023 9:29 AM CDT Comment:Specimen Source Site : Urine Estrella Marmolejo APRNN.P., M.S. LAB MICROBIOLOGY - GENERAL ORDERABLES [facility] [address] [place] [address], [facility] MKTO [facility] [place] [address] * CT Abdomen Pelvis without IV Contrast [...] BLOOD BANK TEST ORDERABLES [facility] [address] [place] [address], [facility] NPRG [place] [address] [place] [address] * Type and Screen (with Reflex Antibody [...] BLOOD BANK TEST ORDERABLES [facility] [address] [place] [address], [place] [address] [place] [address] * Heparin Anti-Xa Assay (09/14/2023 3:19 AM [...] Sumit Holbrook M.D. LAB BLOOD NON ADD-ON [facility] [address] [place] [address], [facility] DTL [facility][note 3] [address] [place] [address] * IR Nephrostomy Tube Placement Left (09/13/2023 [...] - GENERAL ORDERABLES Performing Organization Address City/[facility]/ZIP Co de Phone Number [facility] [address] [place], [place] [address] [place] [address] [address] [place] [address] * Gram Stain (09/13/2023 2:17 PM CDT) Gram Stain No organisms seen. White blood cells, Rare 09/13/2023 9:02 PM CDT DTL Fluid (Kidney, Left) 09/13/2023 2:17 PM CDT 09/13/2023 3:56 PM CDT Comment:Specimen Source Site : Fluid Latisha [place] M.D. LAB MICROBIOLOGY - GENERAL ORDERABLES Performing Organization Address City/[facility]/ZIP Co de Phone Number [facility] [address] [place] [address], [facility] [address] [place] [address] * Fungal Culture, Routine (09/13/2023 2:17 PM CDT) Fungal Culture, Routine No growth after 24 days of incubation. 10/08/2023 1:02 AM CDT DTL Fluid (Kidney, Left) 09/13/2023 2:17 PM CDT 09/13/2023 3:56 PM CDT Comment:Specimen Source Site : Fluid Latisah [place] M.D. LAB MICROBIOLOGY - GENERAL ORDERABLES Performing Organization Address City/[facility]/ZIP Co de Phone Number [facility] [address] [place] [address] * Bacterial Culture, Anaerobic + Susceptibility (09/13/2023 2:17 PM CDT) Bacterial Culture, Anaerobic + Susc No growth after 14 days of incubation. 09/27/2023 8:04 AM CDT DTL Fluid (Kidney, Left) 09/13/2023 2:17 PM CDT 09/13/2023 3:56 PM CDT Comment:Specimen Source Site : Fluid Latisha [place] M.D. LAB MICROBIOLOGY - GENERAL ORDERABLES Performing Organization Address City/[facility] Co de Phone Number [facility] [address] [place] [address] * APTT (Activated Partial Thromboplastin Time) (09/13/2023 5:56 AM CDT) Only the most recent of8 resultswithin the time period is included. Activated Partial Thrombopl Time, P 35 25 - 37 sec 09/13/2023 7:14 AM CDT DTL Blood (Blood, Venous) 09/13/2023 5:56 AM CDT 09/13/2023 6:53 AM CDT Sumit Holbrook M.D. LAB BLOOD ADD-ON [address] [place] [address] [place] [address] * NM Kidney DMSA (09/12/2023 12:21 PM [...] URINE ORDERA BLES Performing Organization Address City/[facility]/ZIP Co de Phone Number [facility] [address] [place] [address], [facility] [address] [place] [address] * (ABNORMAL) Dipstick, Urine (09/09/2023 11:28 AM [...] LAB URINE STEFFANY BRAVO Performing Organization Address City/[facility]/ZIP Co de Phone Number [facility] [address] [place] [address], [facility] [address] [place] [address] * pH, Random, Urine (09/09/2023 11:28 AM CDT) pH, Random, U 6.3 4.5 - 8.0 09/09/2023 12:19 PM CDT DTL Urine 09/09/2023 11:2 8 AM CDT 09/09/2023 11:58 AM CDT Jeffery Church M.D. LAB URINE ORDERA BLES [facility] [address] [place] [address], [facility] [address] [place] [address] * (ABNORMAL) Microscopic Manual (09/09/2023 11:28 AM [...] Jeffery Church M.D. LAB URINE ORDERA BLES [facility] [address] [place] [address], [facility] [place] [address] [place] [address] * (ABNORMAL) Gram Stain, Urine (09/09/2023 11:28 AM CDT) Source Urine, Urine, Straight Catheter 09/09/2023 11:58 AM CDT DTL Gram Stain, U Positive(A) Negative 09/09/2023 12:16 PM CDT DTL Comment: Few Gram-negative bacilli ? Yeast Urine 09/09/2023 11:2 8 AM CDT 09/09/2023 11:58 AM CDT Jeffery Church M.D. LAB URINE ORDERA BLES Performing Organization Address City/[facility] Co de Phone Number [facility] [address] [place] [address], [facility] [place] [address] [place] [address] * (ABNORMAL) Urinalysis, with Microscopic: Urine, Straight [...] 09/09/2023 1:02 PM CDT DTL Predicted Range 2480-05975 mg/24 h 09/09/2023 1:02 PM CDT DTL Comment Micro done on <2.5 mL 09/09/2023 12:27 PM CDT DTL Urine (Urine, Straight Catheter) 09/09/2023 11:28 AM CDT 09/09/2023 11:58 AM CDT Jeffery Church M.D. LAB URINE MARLONA BLEBryon Performing Organization Address City/[facility]/ZIP Co de Phone Number [facility] [address] [place] [address], [facility] [place] [address] [place] [address] * [place] Kidneys Bilateral with Bladder (09/09/2023 [...] - 12.5 sec 09/09/2023 8:14 AM CDT [facility] 1[facility] 0.9 - 1.1 09/09/2023 8:14 AM CDT [facility] Comment: ----ADDITIONAL INFORMATION---- Standard intensity warfarin therapeutic range: 2.0 to 3.0 ?? High intensity warfarin therapeutic range: 2.5 to 3.5 Blood (Blood, Venous) 09/09/2023 8:04 AM CDT 09/09/2023 8:08 AM CDT Jeffery Church M.D. LAB BLOOD ADD-ON Performing Organization Address City/[facility]/ZIP Co de Phone Number [facility] [address] [place] [address] * Potassium (09/05/2023 4:56 AM CDT) Potassium, S 3.6 3.6 - 5.2 mmol/L 09/05/2023 5:49 AM CDT DTL Blood (Blood, Venous) 09/05/2023 4:56 AM CDT 09/05/2023 5:22 AM CDT Roxy Romero M.D. LAB BLOOD ADD-ON [facility] [address] [place] [address], [facility] DTL [facility][note 3] [address] [place] [address] * [place] Fluoro Less Than 1 Hour [...] RAD IMAGI NG PROCEDURES Performing Organization Address City/[facility]/ZIP Co de Phone Number [facility] NA [...] bladder lumen. Paula Hernandez M.D. [facility] [place] PROCEDURES * Lactate (08/30/2023 9:50 PM CDT) Lactate, P 1.8 0.5 - 2.2 mmol/L 08/30/2023 10:09 PM CDT ST[facility] Blood (Blood, Venous) 08/30/2023 9:50 PM CDT 08/30/2023 9:55 PM CDT Shannan Correa D.O., M.H.A. LAB BLOOD NON ADD-ON [facility] [address] [place] [address], [place] [facility] [address] [place] [address] * DX Chest AP or PA and [...] Correa D.O., M.H.A. IMG DIAGNOSTIC IMAGING PROCEDURES from Last 3 Months Advance Directives For more information, please contact: [phone] * Full Code (Latest Code Status on [...] Answer Comments Full Code: Discussed Care Teams Lens Blank Gauger Relationship Specialty Start Date End Date Elsewhere, Pcp PCP - General Internal Medicine 08/13/23
--- OUTSIDE RECORDS SUMMARY | 2023-11-28 08:20 | XMS_ITS | Encounter Summary ---
Author Organization [facility] Address [address] [place] [address] Care Team Providers Care Molding Manager Name Role Phone Elsewhere, Pcp Primary Care Provider Unavailabl e Encounter Details Date Type Department Care Team (Latest Contact Info) Description 11/14/2023 Intake [facility] Social History Tobacco Use Types Packs/Day Years Used Date Smoking Tobacco: Never Smokeless Tobacco: Never [facility] Utilities Answer Date Recorded In the past [...] [facility] 11/15/2023 Sex and Gender Information Value Date Recorded Sex Assigned at Not on file Gender Identity Not on file Sexual Orientation Not on file documented as of this encounter Plan of Treatment Upcoming Encounters Date Type Department Care Team (Latest Contact Info) Description 12/07/2023 10:15 AM CDT Procedure visit Department of Urology in [place] [address] [place] [address] Burke Strauss M.D. [address] [place] [phone] Discharge Disposition: Home or Self Care 12/07/2023 10:30 AM CDT Office Visit Department of Urology in [place] [address] [place] [address] Burke Strauss M.D. [address] [place] [phone] Discharge Disposition: Home or Self Care documented as of this encounter Visit Diagnoses Not on filedocumented in this encounter Care Teams Molding Manager Relationship Specialty Start Date End Date Elsewhere, Pcp PCP - General Internal Medicine 08/13/23 documented as of this encounter
--- OUTSIDE RECORDS SUMMARY | 2023-11-28 08:20 | XMS_ITS | Encounter Summary ---
Author Organization [facility] Address [address] [place] [address] Care Team Providers Care Director Counseling Bureau Name Role Phone Elsewhere, Pcp Primary Care Provider Unavailabl e Encounter Details Date Type Department Care Team (Late st Contact Info) Description 11/15/2023 10:40 AM CDT Ancillary Procedure Department of Wound Ostomy Social History Tobacco Use Types Packs/Day Years Used Date Smoking Tobacco: Never Smokeless Tobacco: Never [facility] Utilities Answer Date Recorded In the past 12 months has e electric, gas, oil, or water [employer] threatened to shut off services in your [...] [facility] live 11/15/2023 Sex and Gender Information Value Date Recorded Sex Assigned at Not on file Gender Identity Not on file Sexual Orientation Not on file documented as of this encounter Plan of Treatment Upcoming Encounters Date Type Department Care Team (Latest Contact Info) Description 12/07/2023 10:15 AM CDT Procedure visit Department of Urology in [place] [address] [place] [address] Burke Strauss M.D. [address] [place] [phone] Discharge Disposition: Home or Self Care 12/07/2023 10:30 AM CDT Office Visit Department of Urology in [place] [address] [place] [address] Burke Strauss M.D. [address] [place] [phone] Discharge Disposition: Home or Self Care documented [...] filedocumented in this encounter Care Teams Director Counseling Bureau Relationship Specialty Start Date End Date Elsewhere, Pcp PCP - General Internal Medicine 08/13/23 documented as of this encounter
--- OUTSIDE RECORDS SUMMARY | 2023-11-28 08:20 | XMS_ITS ---
Author Organization [facility] Address [address] [place] [address] Care Team Providers Care Environmental Sampler Name Role Phone Unavailable Unavailable Unavailable Surgery Details Not on file Complications Check Surgery Details section. Procedure Estimated Blood Loss Check Surgery Details section. Procedure Findings Check Surgery Details section. Procedure Specimens Taken Check Surgery Details section.
--- OUTSIDE RECORDS SUMMARY | 2023-11-28 08:20 | XMS_ITS ---
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 11/15/2023 Atherosclerotic Heart Diseas e Of [place] Coronary Artery Without Angina Pectoris 11/15/2023 Overview (11/15/2023): stent placements 2017 Complication Procedure Initial 11/15/2023 Deficiency Iron 11/15/2023 Hyperlipidemia 11/15/2023 Hypertension Essential Primary 11/15/2023 Security Nurse Current Use Of Oth er Agents Affecting Estrogen Receptors And Estrogen Levels 11/15/2023 Presence Of Other Vascular Implants And Grafts 0 11/15/2023 Other Specified Disorders Of Bladder 11/15/2023 Other Retention Of Urine 11/15/2023 PreDiabetes 11/15/2023 Presence Of Urogenital Implants 11/15/2023 Unspecified Complication Of Genitourinary Prosthetic Device Implant And Graft Initial 11/15/2023 Inferior Vena Cava Filter 11/15/2023 Security Nurse (Current) Anticoagulant Treatment 09/2023 Presence Of Other [...] On Elapsed Days Session Dose Total Dose [id number] 04/28/2020 32 300 cGy 6,000 cGy Lifetime Dose Tracking * Chemical Lifetime Dose Automatic Entry Manual Entr y Radiation 20.4 mGy 20.4 mGy 0 mGy Fluoro Time 2.005 minutes 2.005 minutes 0 minutes DAP (uGy-m2) 479.6 uGy-m2 479.6 uGy-m2 0 uGy-m2 Resolved Problems Problem Noted Date Diagnosed Date Resolved Date Hematuria Gross 08/31/2023 11/17/2023
--- OUTSIDE RECORDS SUMMARY | 2023-11-28 08:20 | XMS_ITS | Encounter Summary ---
Author Organization [facility] Address [address] [place] [address] Care Team Providers Care Director Of Emergency Nursing Name Role Phone Elsewhere, Pcp Primary Care Provider Unavailabl e Encounter Details Date Type Department Care Team (Late st Contact Info) Description 11/14/2023 Documentation Department of Urology in [place], [place] [address] [place] [phone] Sowmya Aviles, ARUN, C.N.P., M.S.N. [address] [place] [phone] Social History Tobacco Use Types Packs/Day Years Used Date Smoking Tobacco: Never Smokeless Tobacco: Never [facility] Utilities Answer Date Recorded In [...] a [facility] place to live 11/15/2023 Sex and Gender Information Value Date Recorded Sex Assigned at Not on file Gender Identity Not on file Sexual Orientation Not on file documented as of this encounter Progress Notes * Sowmya Aviles, ARUN, C.N.P., M.S.N. - 11/14/2023 3:31 PM CDT Contacted via [facility] regarding this patient. Not personally seen or evaluated as patient is in the [facility] Emergency Department. Kalen Vega is a 83 y.o. male with medical comorbidities of acute DVT on Plavix, coronary artery disease status post stent, degenerative joint disease, hyperlipidemia, lymphedema, prediabetes. 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 Tan in [place], [place]. Right hydronephrosis and right atrophic kidney [...] was readmitted to hospital. He presented to [facility] Emergency Department today for evaluation of hematuria and no drainage into urinary catheter. He reports leakage around the catheter of urine and blood clots. A 22 Uruguayan three-way catheter was placed, patient was hand [...] CDT Procedure visit Department of Urology in [place], [place] [address] [place] [address] Burke Strauss M.D. [facility] [place] [phone] Discharge Disposition: Home or Self Care 12/07/2023 10:30 AM CDT Office Visit Department of Urology in [place], [place] [address] [place] [address] Burke Strauss M.D. [address] [place] [phone] Discharge Disposition: Home or Self Care documented as of this encounter Visit Diagnoses Not on filedocumented in this encounter Care Teams Director Of Emergency Nursing Relationship Specialty Start Date End Date Elsewhere, Pcp PCP - General Internal Medicine 08/13/23 documented as of this encounter
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
--- OUTSIDE RECORDS SUMMARY | 2023-11-28 08:21 | XMS_ITS | Encounter Summary ---
Author Organization [facility] Address [address] [place] [address] Care Team Providers Care Research Geneticist Name Role Phone Elsewhere, Pcp Primary Care Provider Unavailabl e Reason for Visit * Reason Comments Catheter Care Plan Encounter Details Date Type Department Care Team (Late st Contact Info) Description 10/14/2023 Documentation Department of Urology in [place], [place] [address] [place] [phone] Paula Hernandez M.D. [address] [place] [phone] Catheter Care Plan Social History Tobacco Use Types Packs/Day Years Used Date Smoking Tobacco: Never Smokeless Tobacco: Never [facility] Utilities Answer Date Recorded In [...] Care Plan - Catheter Exchange General Information [facility]/ Patient Name: Kalen Vega Date: 1940 Health Care Provider(s) Medical Provider(s) Cesar Mccollum M.D. Institution: No address on file [place], [place] Urology Provider(s) Chief Urology residents Last seen by Paula Hernandez M.D. Institution: [facility] Treatment Summary Diagnosis Hydronephrosis; hematuria; metastatic prostate cancer; radiation cystitis Treatment Surgery []Yes [x] No Surgery Date(s) Surgical Procedure/Location/Findings Current Treatment Information/Follow-up Care Plan Frequency of Catheter Changes (i.e. every 4 weeks) every 4 weeks Catheter Information Type: Coude red rubber Size:20F Reference #: [id number] Catheter Prescription Expires NA Last seen by [...] CDT Procedure visit Department of Urology in [place] [address] [place] [address] Burke Strauss M.D. [address] [place] [phone] Discharge Disposition: Home or Self Care 12/07/2023 10:30 AM CDT Office Visit Department of Urology in [place] [address] [place] [address] Burke Strauss M.D. [address] [place] [phone] Discharge Disposition: Home or Self Care documented as of this encounter Visit Diagnoses Not on filedocumented in this encounter Care Teams Research Geneticist Relationship Specialty Start Date End Date Elsewhere, Pcp PCP - General Internal Medicine 08/13/23 documented as of this encounter
--- OUTSIDE RECORDS SUMMARY | 2023-11-28 08:21 | XMS_ITS | Encounter Summary ---
Author Organization [facility] Address [address] [place] [address] Care Team Providers Care Support Technician Name Role Phone Elsewhere, Pcp Primary Care Provider Unavailabl e Reason for Visit * Reason Onset Date Comments follow up questions 09/16/2023 Encounter Details Date Type Department Care Team (Latest Contact Info) Description 09/16/2023 Clinical Communication Department of Urology in [place], [place] [address] [place] [address] Provider, Unknown follow up questions Social History Tobacco Use Types Packs/Day Years Used Date Smoking Tobacco: Never Smokeless Tobacco: Never [facility] Utilities Answer Date Recorded In the past 12 months has [facility] [employer], gas, oil, or water [employer] threatened to shut off services in your [...] have a [facility] place to live 09/09/2023 Sex and [...] CDT Procedure visit Department of Urology in [place], [place] [address] [place] [address] Burke Strauss M.D. [facility] [place] [address] Discharge Disposition: Home or Self Care 12/07/2023 10:30 AM CDT Office Visit Department of Urology in [place], [place] [address] [place] [address] Burke Strauss M.D. 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
--- OUTSIDE RECORDS SUMMARY | 2023-11-28 08:21 | XMS_ITS | Encounter Summary ---
Author Organization [facility] Address [address] [place] [address] Care Team Providers Care Haulpak Driver Name Role Phone Elsewhere, Pcp Primary Care Provider Unavailabl e Reason for Referral * Outpatient (Routine) - Authorized Specialty Diagnoses / Procedures Referred By Contaraceli t Referred To Contact Urology Diagnoses Hematuria Paula Benton M.D. [address] [place] [address] [facility] Referral ID Status Reason Start Date Expiration Date V isits Requested Visits Authorized [id number] Authorized 09/15/2023 03/16/2025 1 1 Encounter Details Date Type Department Care Team (Late st Contact Info) Description 09/15/2023 Clinical Communication [facility] [address] [place] [phone] Yasmine Loco Social History Tobacco Use Types Packs/Day Years Used Date Smoking Tobacco: Never Smokeless Tobacco: Never [facility] Utilities Answer Date [...] visit Department of Urology in [place], [place] [address] [place] [phone] Burke Strauss M.D. [facility]5 [place] [address] Discharge Disposition: Home or Self Care 12/07/2023 10:30 AM CDT Office Visit Department of Urology in [place], [place] [address] [place] [address] Burke Strauss M.D. [address] [place] [phone] Discharge Disposition: Home or Self Care Scheduled [...] documented as of this encounter Care Teams Haulpak Driver Relationship Specialty Start Date End Date Elsewhere, Pcp PCP - General Internal Medicine 08/13/23 documented as of this encounter
--- OUTSIDE RECORDS SUMMARY | 2023-11-28 08:21 | XMS_ITS | Encounter Summary ---
Author Organization [facility] Address [address] [place] [address] Care Team Providers Care Outpatient Coder Name Role Phone Elsewhere, Pcp Primary Care Provider Unavailabl e Reason for Visit * Reason Comments Urinary Retention * Outpatient (Routine) - Closed Specialty Diagnoses / Procedures Referred By Contaraceli t Referred To Contact Diagnoses Hematuria Procedures URO Urethral cath change (UCC) Paula Hernandez M.D. [address] [place] [phone] [facility] Referral ID Status Reason Start Date Expiration Date Visits Re quested Visits Authorized [id number] Closed 09/15/2023 09/14/2024 1 1 Encounter Details Date Type Department Care Team (Late st Contact Info) Description 10/14/2023 1:00 PM CDT Procedure visit Department of Urology in [place], [place] [address] [place] [phone] Paula Hernandez M.D. [address] [place] [phone] Khadra Miller R.N. [address] [place] [phone] Hematuria Social History Tobacco Use Types Packs/Day [...] Procedure visit Department of Urology in [address] [phone] Burke Strauss M.D. [address] [place] [phone] Discharge Disposition: Home or Self Care 12/07/2023 10:30 AM CDT Office Visit Department of Urology in [address] [phone] Burke Strauss M.D. [address] [place] [phone] Discharge Disposition: Home or Self Care documented as of this encounter Visit Diagnoses Diagnosis Hematuria documented in this encounter Care Teams Outpatient Coder Relationship Specialty Start Date End Date Elsewhere, Pcp PCP - General Internal Medicine 08/13/23 documented as of this encounter
--- OUTSIDE RECORDS SUMMARY | 2023-11-28 08:21 | XMS_ITS | Encounter Summary ---
Author Organization [facility] Address [address] [place] [address] Care Team Providers Care Swine Extension Field Specialist Name Role Phone Elsewhere, Pcp Primary Care Provider Unavailabl e Reason for Referral * Outpatient (Routine) - Authorized Specialty Diagnoses / Procedures Referred By Contac t Referred To Contact Urology Burke Strauss M.D. [address] [place] [phone] [facility] Region Referral ID Status Reason Start Date Expiration Date V isits Requested Visits Authorized [id number] Authorized 11/09/2023 05/10/2025 1 1 * Outpatient (Routine) - Authorized Specialty Diagnoses / Procedures Referred By Contac t Referred To Contact Diagnoses Retention Urinary Chronic Procedures URO Urethral cath change (UCC) Burke Strauss M.D. [address] [place] [phone] [facility] Region Referral ID Status Reason Start Date Expiration Date V isits Requested Visits Authorized [id number] Authorized 11/09/2023 11/08/2024 15 15 Reason for Visit * Reason Comments Consult Discuss catheter thomas nges * Appointment Request (Routine) - Closed Specialty Diagnoses / Procedures Referred By Leyla rosenthal Referred To Contact Urology Referral ID Status Reason Start Date Expiration Date Visits Re quested Visits Authorized [id number] Closed 10/27/2023 10/26/2024 1 1 Encounter Details Date Type Department Care Team (Late st Contact Info) Description 11/09/2023 11:00 AM CDT Office Visit Department of Urology in [place], [place] [address] [place] [phone] Burke Strauss M.D. [address] [place] [phone] Primary Malignant Neoplasm Of Prostate (HCC) (Primary Dx); Retention Urinary Chronic; Hematuria Gross Discharge Disposition: Home or Self Care Social History Tobacco Use Types Packs/Day Years Used Date Smoking Tobacco: Never Smokeless Tobacco: Never [facility] Zadyities Answer Date Recorded In the past 12 months has [facility] electric, gas, oil, or water [employer] threatened to shut off services in your [...] ILLNESS Patient presents to establish care from [facility]. He has multiple urologic issues including [...] the past few days. Original plan from [place] was to exchange his left nephrostomy tube in 3 months, due 12/14/2023. He reports getting good output from the left neph tube without hematuria. 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 He has completed 19 of 45 planned treatments and expects to finish that course in early December. Metastatic prostate cancer is being managed by [facility], Dr. Mireya Tan. Release of [...] an antegrade nephrogram through Interventional Radiology in [place] prior to nephrostomy tube removal. documented in this encounter Plan of Treatment Upcoming Encounters Date Type Department Care Team (Latest Contact Info) Description 12/07/2023 10:15 AM CDT Procedure visit Department of Urology in [address] [phone] Burke Strauss M.D. [address] [place] [phone] Discharge Disposition: Home or Self Care 12/07/2023 10:30 AM CDT Office Visit Department of Urology in [address] [phone] Burke Strauss M.D. [address] [place] [phone] Discharge Disposition: Home or Self Care Scheduled [...] Gross documented in this encounter Care Teams Swine Extension Field Specialist Relationship Specialty Start Date End Date Elsewhere, Pcp PCP - General Internal Medicine 08/13/23 documented as of this encounter
--- OUTSIDE RECORDS SUMMARY | 2023-11-28 08:21 | XMS_ITS | Encounter Summary ---
Author Organization [facility] Address [address] [place] [address] Care Team Providers Care Reticle Printer Name Role Phone Elsewhere, Pcp Primary [...] has e electric, gas, oil, or water [employer] threatened to shut off services in your [...] CDT Procedure visit Department of Urology in [address] [phone] Burke Strauss M.D. [address] [place] [phone] Discharge Disposition: Home or Self Care 12/07/2023 10:30 AM CDT Office Visit Department of Urology in [place] [address] [place] [address] Burke Strauss M.D. [address] [place] [phone] Discharge Disposition: Home or Self Care documented [...] on filedocumented in this encounter Care Teams Reticle Printer Relationship Specialty Start Date End Date Elsewhere, Pcp PCP - General Internal Medicine 08/13/23 documented as of this encounter
--- OUTSIDE RECORDS SUMMARY | 2023-11-28 08:21 | XMS_ITS | Encounter Summary ---
Author Organization [facility] Address [address] [place] [address] Care Team Providers Care Heel Finisher Name Role Phone Elsewhere, Pcp Primary Care Provider Unavailabl e Encounter Details Date Type Department Care Team (Late st Contact Info) Description 09/21/2023 Clinical Communication Department of Urology in [place], [place] [address] [place] [address] Paula Hernandez M.D. [address] [place] [phone] Social History Tobacco Use Types Packs/Day Years Used Date Smoking Tobacco: Never Smokeless Tobacco: Never [facility] Utilities Answer Date Recorded In the past 12 months has [facility] [employer], gas, oil, or water [employer] threatened to shut off services in your [...] situation today? I have a [facility] place to live 09/09/2023 Sex and Gender Information Value Date Recorded Sex Assigned at Not on file Gender Identity Not on file Sexual Orientation Not on file documented as of this encounter Miscellaneous Notes * Telephone Encounter - Paula Hernandez M.D. - 09/21/2023 2:37 PM CDT I called the patient's [place] physician who he saw yesterday, 09/19 in [...] Department of Urology in [place], [place] [address] [place] [address] Burke Strauss M.D. [facility]5 [place] [phone] Discharge Disposition: Home or Self Care 12/07/2023 10:30 AM CDT Office Visit Department of Urology in [place] [address] [place] [address] Burke Strauss M.D. [address] [place] [phone] Discharge Disposition: Home or Self Care documented as of this encounter Visit Diagnoses Not on filedocumented in this encounter Care Teams Heel Finisher Relationship Specialty Start Date End Date Elsewhere, Pcp PCP - General Internal Medicine 08/13/23 documented as of this encounter
--- OUTSIDE RECORDS SUMMARY | 2023-11-28 08:21 | XMS_ITS | Encounter Summary ---
Author Organization [facility] Address [address] [place] [address] Care Team Providers Care Fish Hatchery Laborer Name Role Phone Elsewhere, Pcp Primary Care Provider Unavailabl e Encounter Details Date Type Department Care Team (Late st Contact Info) Description 10/27/2023 Clinical Communication Department of Urology in [place], [place] [address] [place] [phone] Burke Strauss M.D. [address] [place] [phone] Social History Tobacco Use Types Packs/Day Years Used Date Smoking Tobacco: Never Smokeless Tobacco: Never [facility] Utilities Answer Date Recorded In the past 12 months has e electric, gas, oil, or water [employer] threatened to shut off services in your [...] living situation today? I have a [facility] place to live 09/09/2023 Sex [...] 2:15 PM CDT Patient follows urology in [place] but would like to transfer his care to [place] as it is closer to home. It looks like for Hematuria. Is this patient ok to see you? He has a catheter in and will need cath changes going forward. documented in this encounter Plan of Treatment Upcoming Encounters Date Type Department Care Team (Latest Contact Info) Description 12/07/2023 10:15 AM CDT Procedure visit Department of Urology in [place] [address] [place] [phone] Burke Strauss M.D. [address] [place] [phone] Discharge Disposition: Home or Self Care 12/07/2023 10:30 AM CDT Office Visit Department of Urology in [place] [address] [place] [phone] Burke Strauss M.D. [address] [place] [phone] Discharge Disposition: Home or Self Care documented as of this encounter Visit Diagnoses Not on filedocumented in this encounter Care Teams Fish Hat[employer] Laborer Relationship Specialty Start Date End Date Elsewhere, Pcp PCP - General Internal Medicine 08/13/23 documented as of this encounter
--- OUTSIDE RECORDS SUMMARY | 2023-11-28 08:21 | XMS_ITS | Encounter Summary ---
Author Organization [facility] Address [address] [place] [address] Care Team Providers Care Control Room Technician Name Role Phone Elsewhere, Pcp Primary Care Provider Unavailabl e Reason for Referral * Outpatient (Routine) - Closed Specialty Diagnoses / Procedures Referred By Contac t Referred To Contact Diagnoses Hematuria Procedures URO Urethral cath change (UCC) Paula Hernandez M.D. [address] [place] [address] [facility] Referral ID Status Reason Start Date Expiration Date Visits Re quested Visits Authorized [id number] Closed 09/15/2023 09/14/2024 1 1 * Outpatient (Routine) - Authorized Specialty Diagnoses / Procedures Referred By Contac t Referred To Contact Radiology Diagnoses Hematuria Procedures IR Nephrostomy Tube Exchange Left Paula Hernandez M.D. [address] [place] [address] [facility] Referral ID Status Reason Start Date Expiration Date V isits Requested Visits Authorized [id number] Authorized 09/15/2023 09/14/2024 1 1 Reason for Visit * Reason Comments Blood in Urine Encounter Details Date Type Department Care Team (Latest Contact Info) Description 09/09/2023 7:24 AM CDT - 09/15/2023 5:28 PM CDT Hospital Encounter [facility], Sixth Floor [address] [place] [phone] Gerri Merrill M.D., Ph.D. [address] [place] [phone] Sumit Holbrook M.D. [address] [place] [phone] Hematuria (Primary Dx) Discharge Disposition: Home or Self Care Social History Tobacco Use Types Packs/Day Years Used Date Smoking Tobacco: Never Smokeless Tobacco: Never [facility] Tytoities Answer Date Recorded In the past 12 months has [facility] [employer], gas, oil, or water [employer] threatened to shut off services in your [...] [facility] place to live 09/09/2023 Sex and Gender [...] AM CDT DISCHARGE SUMMARY BRIEF OVERVIEW Hospital: [facility] Discharge Provider: Sumit Holbrook M.D. Primary Team: [facility] Urology Surgery - Chief Helga [...] IP CONSULT TO UROLOGY IP CONSULT TO NEONATAL CRITICAL CARE NURSE WOUND CARE IP CONSULT TO HYPERBARIC MEDICINE [...] through Care Everywhere. * Sulfamethoxazole/Trimethoprim (By mouth) (Lao) documented in this encounter Medications at Time [...] for 2 days. 4 tablet 09/15/2023 09/17/2023 clopidogreL (PLAVIX) 75 mg tablet Take 75 mg by mouth every morning. 12/27/2019 11/17/2023 documented as of this encounter Progress Notes [...] reviewed. GI Function: Last BM Date: 09/11/23, [place] Stool Chart: Type 5: Soft blobs with [...] 86.8 kg (09/09/2023) Current Weight: 84.5 kg [place] Body Weight (Calculated) : 75.3 kg BMI [...] or 5%. Estimated Needs: Total Calorie Needs: 9346-6516 calories/day Method to Estimate Energy Needs: kcal/kg [...] about patient's nutritional care please contact pager [phone] on weekdays 07:30-16:00 or [phone] on weekends/holidays ([facility]). * Clara Luu APRN, C.N.P., D.N.P. [...] 09/14/2359 09/14/23 07 - 09/15/23 0659 Shift [id number] 6311-6452 5276-6436 24 Hour Total 6155-6306 2502-9466 6973-1452 24 Hour Total INTAKE Other 30 60 [...] please contact Vascular and Interventional Radiology DEBBI ([phone]). Anticoagulation: A percutaneous nephrostomy tube is considered [...] ([facility]) Inpatient Consult Service at [phone] or the on-call resident at [phone] after 5 PM and on weekends with [...] . Neph tube clear yellow urine. I/O ([id number]): 1.9 L, 1.1 L from the neph [...] questions or concerns. Pager during business hours: [phone] Pager after hours: [phone] * Paula Hernandez M.D. - 09/13/2023 6:05 [...] in place draining clear yellow urine I/O ([id number]): Adequate urine output 2.7 L/248 1 L [...] questions or concerns. Pager during business hours: [phone] Pager after hours: [phone] * Raya Meza Pharm.D., R.Ph., [facility] - 09/12/2023 7:44 AM CDT Images [...] for medicationuse optimization Stephanie Meza Pharm.D., R.Ph., [facility] Addendum: Heparin will be stopped on [...] in place draining clear yellow urine I/O ([id number]): CBI paused for obs Labs: Hb: Hemoglobin [...] Date/Time Bacterial Culture, Aerobic + Susceptibility, Urine [[id number]] (Abnormal) (Susceptibility) Collected: 09/09/23 1128 Lab Status: [...] Susceptible Bacterial Culture, Aerobic + Susceptibility, Urine [[id number]] Collected: 09/03/23 1050 Lab Status: Final result [...] questions or concerns. Pager during business hours: [phone] Pager after hours: [phone] * Js Yang M.D. - 09/11/2023 9:18 [...] [place] [phone] during business hours orat [phone] after hours. * Portillo Crespo Pharm.D., R.Ph., [...] at 0000 Mayur Collier PharmD, LUCERO, BCPS, [facility] Pager [phone] * Js Yang M.D. - 09/10/2023 9:50 [...] Urine culture: Gram-negative bacillus, prior history of nunze susceptible E coli Hb: 8.1 (8.9) WBC: [...] Service [place] [phone] during business hours orat [phone] after hours. * Quin Harrell Pharm.D., R.Ph., [...] RNarendra, C.W.C.N. - 09/09/2023 1:[address] [facility] Wound RN [...] None Unable to Measure N *Wound Bed Open;[place];Yellow;Fibrin/Slough Tissue Exposed None Odor None *Exudate Amount Small Drainage Description Serous;Perez Janiya-wound Assessment Intact;Fragile;[place];Purple;Maceration;White Periwound Treatment Liquid skin protectant (SurePrep) *Primary Dressing Gelling fiber/Hydrofiber (Aquacel Ag) *Primary Dressing Frequency of Change Daily & PRN *Secondary Dressing Foam (Sacral Mepilex Border) *Secondary Dressing Frequency of Change Daily & PRN Lengthy Treatment > 30 minutes > 30 minutes Ongoing management Nursing;Wound/clinical engineer Partial head to toe skin assessment [...] PM CDT * Raya Meza Pharm.D., R.Ph., [facility] - 09/09/2023 11:17 AM CDT [...] for medicationuse optimization Stephanie Meza, PharmJonahD., R.Ph., [facility] Admission Medication History Note Adherence [...] follow Paula Hernandez M.D. Urology PGY-2 Pager #[phone] Please page Chief Urology at [phone] from 7 AM - 5 PM or at [phone] after hours with any questions/concerns. documented in [...] reviewed. GI Function: Last BM Date: 09/11/23, [place] Stool Chart: Type 5: Soft blobs with [...] 86.8 kg (09/09/2023) Current Weight: 84.5 kg [place] Body Weight (Calculated) : 75.3 kg BMI [...] or 5%. Estimated Needs: Total Calorie Needs: 7281-9984 calories/day Method to Estimate Energy Needs: kcal/kg [...] about patient's nutritional care please contact pager [phone] on weekdays 07:30-16:00 or [phone] on weekends/holidays ([facility]). * Clara Luu JEWELRY CASTING MODEL MAKER APPRENTICE, C.N.P., D.N.P. - 09/12/2023 11:59 AM CDTAssociated [...] admitted for CBI. He was transferred to [facility] after difficultywith irrigating his Jon [...] and recommendations. Please feel free to page [phone] [phone] after 5 PM and on weekends with additional questions. VIR will continue to follow * Alessandra Aguero D.O. - 09/09/2023 5:26 PM CDTAssociated Order(s): IP CONSULT TO VASCULAR MEDICINE VASCULAR MEDICINE CONSULT NOTE Requesting Physician: Gerri Merrill M.D.,* SUBJECTIVE REASON FOR CONSULT: assistance with AC management, patient on plavix and eliquis admitted with refractory hematuria requing CBI. Recommend heparin drip? thanks [facility] [phone] HISTORY OF PRESENT ILLNESS Mr. Vega is [...] stents placed in total (2016, no prior MA, completed after positive stress test) Recommended for [...] for radiation proctitis SOCIAL HISTORY Lives in [place], [place] OBJECTIVE AVSS General: Lying in bed, [...] with Dr. Victoria, the chief urology resident maintenance construction helper. Please page chief Urology Service [place] [phone] [place] [phone] after hours. Paula Hernandez M.D. 09/09/23 9:10 [...] consulted after discussion with the catheter environmental field services technician who advised that for this patient they are required to get approval from Urologyprior to placing catheter. ED Course as of 09/09/23 0958 TueSeptember 09, 2023 0822 Hemoglobin(!): 8.9 Down from 9.6 one-week ago 0822 Leukocytes(!): 14.5 New leukocytosis with neutrophilia 0822 INR: 1.1 0823 Discussed with the catheter environmental field services technician. Bladder scan showed 125 mL. [...] CDT Procedure visit Department of Urology in [address] [phone] Burke Strauss M.D. [address] [place] [address] Discharge Disposition: Home or Self Care 12/07/2023 10:30 AM CDT Office Visit Department of Urology in [place], [place] [address] [place] [address] Burke Strauss M.D. [facility] [place] [address] Discharge Disposition: Home or Self Care Pending [...] City/[facility]/ZIP Co de Phone Number [facility] [address] [place] [address] * Heparin Anti-Xa Assay (09/14/2023 3:19 AM [...] Sumit Holbrook M.D. LAB BLOOD NON ADD-ON [facility] [address] [place], [place] [phone] [address] [facility] [place] [address] [place] [address] * (ABNORMAL) CBC without Differential (09/14/2023 3:19 [...] CDT Paula Hernandez M.D. LAB BLOOD ADD-ON [place] [address] [place] [address], [facility] [place] [address] [place] [address] * IR Nephrostomy Tube Placement Left (09/13/2023 2:20 PM CDT) Anatomical Region Laterality Modality Genito Urinary, Vascular Int erventional RST LOS, Vascular Interventional ARZ LOS, Vascular Interventional FLA LOS Left X-Ray Angiography Impressions 09/13/2023 2:33 PM CDT Left 10 Taiwanese percutaneous nephrostomy tube placement. EP Narrative 09/13/2023 [...] tract was further dilated and a 10 Taiwanese nephrostomy tube was placed with loop formed [...] sedation timewas: 9 minutes. IMPRESSION: Left 10 Taiwanese percutaneous nephrostomy tube placement. EP Latisha Whitehead M.D. IMG IR PROCEDURE S * Fungal Culture, Routine (09/13/2023 2:17 PM CDT) Fungal Culture, Routine No growth after 24 days of incubation. 10/08/2023 1:02 AM CDT DTL Fluid (Kidney, Left) 09/13/2023 2:17 PM CDT 09/13/2023 3:56 PM CDT Comment:Specimen Source Site : Fluid Latisha Whitehead M.D. LAB MICROBIOLOGY - GENERAL ORDERABLES [facility] [address] [place] [address], [place] [facility] [address] [place] [address] * Bacterial Culture, Anaerobic + Susceptibility (09/13/2023 2:17 PM CDT) Bacterial Culture, Anaerobic + Susc No growth after 14 days of incubation. 09/27/2023 8:04 AM CDT DTL Fluid (Kidney, Left) 09/13/2023 2:17 PM CDT 09/13/2023 3:56 PM CDT Comment:Specimen Source Site : Fluid Latisha Whitehead M.D. LAB MICROBIOLOGY - GENERAL ORDERABLES Performing Organization Address City/[facility]/ZIP Co de Phone Number [facility] [address] [place] [address], [facility] [address] [place] [address] * Gram Stain (09/13/2023 2:17 PM CDT) Gram Stain No organisms seen. White blood cells, Rare 09/13/2023 9:02 PM CDT DT Fluid (Kidney, Left) 09/13/2023 2:17 PM CDT 09/13/2023 3:56 PM CDT Comment:Specimen Source Site : Fluid Latisha Whitehead M.D. LAB MICROBIOLOGY - GENERAL ORDERABLES Performing Organization Address City/[facility]/ZIP Co de Phone Number [facility] [address] [place] [address], [facility] [address] [place] [address] * Bacterial Culture, Aerobic + Susceptibility (09/13/2023 2:17 PM CDT) Pathologist [facility] Bacterial Culture, Aerobic + Susc No growth after 5 days of incubation. 09/18/2023 12:35 PM CDT DT Fluid (Kidney, Left) 09/13/2023 2:17 PM CDT 09/13/2023 3:56 PM CDT Comment:Specimen Source Site : Fluid Latisha Whitehead M.D. LAB MICROBIOLOGY - GENERAL ORDERABLES [facility] [address] [place] [address], [facility] [address] [place] [address] * (ABNORMAL) CBC without Differential (09/13/2023 5:57 [...] CDT Ko Victoria M.D. LAB BLOOD ADD-ON [facility] [address] [place] [address], [facility] [place] [address] [place] [address] * Heparin Anti-Xa Assay (09/13/2023 5:56 AM CDT) Pathologist [facility] Heparin Anti-Xa, P 0.10 IU/mL 2023 [...] NON ADD-ON Performing Organization Address City/[facility] Co de Phone Number [facility] [address] [place] [address], [facility] [address] [place] [address] * APTT (Activated Partial Thromboplastin Time) (09/13/2023 5:56 AM CDT) Pathologist [facility] Activated Partial Thrombopl Time, P 35 25 - 37 sec 09/13/2023 7:14 AM CDT DTL Blood (Blood, Venous) 09/13/2023 5:56 AM CDT 09/13/2023 6:53 AM CDT Sumit Holbrook M.D. LAB BLOOD ADD-ON Performing Organization Address [facility] Co de Phone Number [facility] [address] [place] [address], [facility] [address] [place] [address] * (ABNORMAL) Basic Metabolic Panel (09/13/2023 5:56 AM CDT) Pathologist [facility] Potassium, S [...] CDT Paula Hernandez M.D. LAB BLOOD ADD-ON [facility] [address] [place] [address], [facility] [place] [address] [place] [address] * NM Kidney DMSA (09/12/2023 12:21 PM [...] reduced radiotracer uptake asdescribed. Js Yang M.D. [facility] PROCEDURES * Transfuse Red Blood [...] BLOOD ADD-ON Performing Organization Address City/[facility] Co de Phone Number [facility] [address] [place] [address] * (ABNORMAL) APTT (Activated Partial Thromboplastin Time) (09/12/2023 3:42 AM CDT) [facility] Activated Partial Thrombopl Time, P 49(H) 25 - 37 sec 09/12/2023 4:35 AM CDT DTL Blood (Blood, Venous) 09/12/2023 3:42 AM CDT 09/12/2023 4:00 AM CDT Gerri Merrill M.D., Ph.D. LAB BLOOD A DD-ON Performing Organization Address City/[facility] Co de Phone Number [facility] [address] [facility] [place] [address] [place] [address] * (ABNORMAL) Basic Metabolic Panel (09/11/2023 8:23 [...] CDT Js Yang M.D. LAB BLOOD ADD-ON [facility] [address] [place] [address], [facility] [place] [address] [place] [address] * (ABNORMAL) CBC without Differential (09/11/2023 8:23 [...] City/[facility]/ZIP Co de Phone Number [facility] [address] [facility] [place] [address] [place] [address] * (ABNORMAL) APTT (Activated Partial Thromboplastin Time) (09/10/2023 11:42 PM CDT) [facility] Activated Partial Thrombopl Time, P 47(H) 25 - 37 sec 09/11/2023 2:05 AM CDT DTL Blood (Blood, Venous) 09/10/2023 11:42 PM CDT 09/11/2023 2:05 AM CDT Gerri Merrill M.D., Ph.D. LAB BLOOD A DD-ON Performing Organization Address City/[facility]/ZIP Co de Phone Number [facility] [address] [facility] [place] [address] [place] [address] * US Urinary Bladder (09/10/2023 8:41 PM [...] Thromboplastin Time) (09/10/2023 6:09 PM CDT) Pathologist [facility] Activated Partial Thrombopl Time, P 46(H) 25 - 37 sec 09/10/2023 7:47 PM CDT DTL Blood (Blood, Venous) 09/10/2023 6:09 PM CDT 09/10/2023 6:25 PM CDT Gerri Merrill M.D., Ph.D. LAB BLOOD A DD-ON [facility] [address] [place] [address], [facility] [place] [address] [place] [address] * (ABNORMAL) APTT (Activated Partial Thromboplastin Time) (09/10/2023 10:11 AM CDT) Pathologist [facility] Activated Partial Thrombopl Time, P 63(H) 25 - 37 sec 09/10/2023 10:57 AM CDT DTL Blood (Blood, Venous) 09/10/2023 10:11 AM CDT 09/10/2023 10:40 AM CDT Gerri Merrill M.D., Ph.D. LAB BLOOD A DD-ON Performing Organization Address [facility] Co de Phone Number [facility] [address] [facility] [address] [place] [address] * (ABNORMAL) CBC without Differential (09/10/2023 3:27 [...] City/[facility]/ZIP Co de Phone Number [facility] [address] [place], [place] [address] DTL [facility] [address] [place] [address] * (ABNORMAL) APTT (Activated Partial Thromboplastin Time) (09/10/2023 12:06 AM CDT) [facility] Activated Partial Thrombopl Time, P 57(H) 25 - 37 sec 09/10/2023 1:05 AM CDT DTL Blood (Blood, Venous) 09/10/2023 12:06 AM CDT 09/10/2023 12:33 AM CDT Gerri Merrill M.D., Ph.D. LAB BLOOD A DD-ON Performing Organization Address City/[facility]/ZIP Co de Phone Number [facility] [address] [facility] [place] [address] [place] [address] * APTT (Activated Partial Thromboplastin Time) (09/09/2023 5:08 PM CDT) [facility] Activated Partial Thrombopl Time, P 31 25 - 37 sec 09/09/2023 5:24 PM CDT STMA Blood (Blood, Venous) 09/09/2023 5:08 PM CDT 09/09/2023 5:12 PM CDT Ko Victoria M.D. LAB BLOOD ADD-ON [facility] [address] [place] [address] * (ABNORMAL) Dipstick, Urine (09/09/2023 11:28 AM CDT) [facility] Hemoglobin, QL, U Large(A) Negative 09/09/2023 12:03 [...] Jeffery Church M.D. LAB URINE ORDERA BLES [facility] [address] [place] [address], [facility] [address] [place] [address] * pH, Random, Urine (09/09/2023 11:28 AM CDT) pH, Random, U 6.3 4.5 - 8.0 09/09/2023 12:19 PM CDT DT Urine 09/09/2023 11:2 8 AM CDT 09/09/2023 11:58 AM CDT Jeffery Church M.D. LAB URINE ORDERA BLES Performing Organization Address City/[facility]/ZIP Co de Phone Number [facility] [address] [place] [address], [facility] [address] [place] [address] * Osmolality, Urine (09/09/2023 11:28 AM CDT) Osmolality, U 380 150 - 1150 mOsm/kg 09/09/2023 12:19 PM CDT DTL Urine 09/09/2023 11:2 8 AM CDT 09/09/2023 11:58 AM CDT Jeffery Church M.D. LAB URINE ORDERA BLES [facility] [address] [place] [address], [facility] [address] [place] [address] * (ABNORMAL) Microscopic Manual (09/09/2023 11:28 AM [...] LAB URINE ORDERA SHELLY Performing Organization Address City/[facility]/ZIP Co de Phone Number [facility] [address] [facility] [place] [address] [place] [address] * (ABNORMAL) Gram Stain, Urine (09/09/2023 11:28 AM CDT) Source Urine, Urine, Straight Catheter 09/09/2023 11:58 AM CDT DTL Gram Stain, U Positive(A) Negative 09/09/2023 12:16 PM CDT DTL Comment: Few Gram-negative bacilli ? Yeast Urine 09/09/2023 11:2 8 AM CDT 09/09/2023 11:58 AM CDT Jeffery Church M.D. LAB URINE ORDERA BLEBryon Performing Organization Address City/[facility]/ZIP Co de Phone Number [facility] [address] [place] [address], [facility] DTL [facility] [address] [place] [address] * (ABNORMAL) Bacterial Culture, Aerobic + Susceptibility, Urine (09/09/2023 11:28 AM CDT) [facility] Urine Culture ENTEROBACTER CLOACAE COMPLEX >100,000 cfu/mL [...] MICROBIOLOGY - GENERAL ORDERABLES Performing Organization Address [facility] Co de Phone Number [facility] [address] [place] [address], [facility] [place] [address] [place] [address] * (ABNORMAL) Urinalysis, with Microscopic: Urine, Straight [...] 09/09/2023 1:02 PM CDT DTL Predicted Range 2480-72140 mg/24 h 09/09/2023 1:02 PM CDT DTL Comment Micro done on <2.5 mL 09/09/2023 12:27 PM CDT DTL Urine (Urine, Straight Catheter) 09/09/2023 11:28 AM CDT 09/09/2023 11:58 AM CDT Jeffery Church M.D. LAB URINE ORDERA BLES Performing Organization Address [facility]/ZIP Co de Phone Number [facility] [address] [place] [address], [facility] [place] [address] [place] [address] * US Kidneys Bilateral with Bladder (09/09/2023 [...] Time (PT) (09/09/2023 8:04 AM CDT) Pathologist [facility] Prothrombin Time, P 12.5 9.4 - 12.5 sec 09/09/2023 8:14 AM CDT ST[facility] INR 1.1 0.9 - 1.1 09/09/2023 8:14 AM CDT [facility] Comment: ----ADDITIONAL INFORMATION---- Standard intensity warfarin therapeutic range: 2.0 to 3.0 ?? High intensity warfarin therapeutic range: 2.5 to 3.5 Blood (Blood, Venous) 09/09/2023 8:04 AM CDT 09/09/2023 8:08 AM CDT Jeffery Church M.D. [place] [address], [place] [address] * (ABNORMAL) CBC with Differential, Blood (09/09/2023 8:04 AM CDT) [facility] Hemoglobin 8.9(L) 13.2 - 16.6 g/dL 09/09/2023 [...] M.D. LAB BLOOD ADD-ON Performing Organization Address City/State/[facility] Co de Phone Number [facility] [address] [place] [address], [facility] STMA [facility] [address] [place] [address] * (ABNORMAL) Basic Metabolic Panel (09/09/2023 8:04 [...] City/[facility]/ZIP Co de Phone Number [facility] [address] [place] [address], [facility] STMA [facility] [address] [place] [address] * Type and Screen (with Reflex Antibody [...] EST ORDERABLES Performing Organization Address [facility] Co de Phone Number [facility] [address] [place] [address], [facility] STRM [facility] [address] [place] [address] documented in this encounter Visit Diagnoses Diagnosis [...] 1419, Intra-Op 1419 (Given - Provider: Jeffery Dleuna M.D.) midazolam (PF) injection 0.5 mg (VERSED) [...] documented as of this encounter Care Teams Control Room Technician Relationship Specialty Start Date End Date Elsewhere, Pcp PCP - General Internal Medicine 08/13/23 documented as of this encounter
--- OUTSIDE RECORDS SUMMARY | 2023-11-28 08:21 | XMS_ITS | Encounter Summary ---
Author Organization [facility] Address [address] [place] [address] Care Team Providers Care Parlor Maid Name Role Phone Elsewhere, Pcp Primary Care Provider Unavailabl e Encounter Details Date Type Department Care Team (Late st Contact Info) Description 11/09/2023 Clinical Communication Department of Urology in [place], [place] [address] [place] [address] Burke Strauss M.D. [address] [place] [phone] Social History Tobacco Use Types Packs/Day Years [...] a [facility] place to live 09/09/2023 Sex and [...] Procedure visit Department of Urology in [address] [phone] Burke Strauss M.D. [facility] [place] [address] Discharge Disposition: Home or Self Care 12/07/2023 10:30 AM CDT Office Visit Department of Urology in [address] [phone] Burke Strauss M.D. [address] [place] [phone] Discharge Disposition: Home or Self Care documented as of this encounter Visit Diagnoses Not on filedocumented in this encounter Care Teams Parlor Maid Relationship Specialty Start Date End Date Elsewhere, Pcp PCP - General Internal Medicine 08/13/23 documented as of this encounter
--- OUTSIDE RECORDS SUMMARY | 2023-11-28 08:21 | XMS_ITS | Encounter Summary ---
Author Organization [facility] Address [address] [place] [address] Care Team Providers Care Casting Carrier Name Role Phone Elsewhere, Pcp Primary Care Provider Unavailabl e Reason for Visit * Reason Onset Date Comments Oncology records request 11/10/2023 Encounter Details Date Type Department Care Team (Latest Contact Info) Description 11/10/2023 Clinical Communication Department of Urology in [place], [place] [address] [place] [phone] Burke Strauss M.D. [address] [place] [phone] Oncology records request Social History Tobacco Use Types Packs/Day Years Used Date Smoking Tobacco: Never Smokeless Tobacco: Never [facility] Utilities Answer Date Recorded In the past [...] a [facility] place to live 11/15/2023 Sex and [...] Information was filled out and faxed to [facility], Dr. Mireya Tan clinic per Dr. Strauss. Will wait for these to come through and notify Dr. Strauss for his review. [facility] documented in this encounter Plan of Treatment Upcoming Encounters Date Type Department Care Team (Latest Contact Info) Description 12/07/2023 10:15 AM CDT Procedure visit Department of Urology in [place], [place] [address] [place] [address] Burke Strauss M.D. [facility] [place] [phone] Discharge Disposition: Home or Self Care 12/07/2023 10:30 AM CDT Office Visit Department of Urology in [place] [address] [place] [address] Burke Strauss M.D. [address] [place] [phone] Discharge Disposition: Home or Self Care documented as of this encounter Visit Diagnoses Not on filedocumented in this encounter Care Teams Casting Carrier Relationship Specialty Start Date End Date Elsewhere, Pcp PCP - General Internal Medicine 08/13/23 documented as of this encounter
--- OUTSIDE RECORDS SUMMARY | 2023-11-28 08:21 | XMS_ITS | Encounter Summary ---
Author Organization [facility] Address [address] [place] [address] Care Team Providers Care Biofuels Manager Name Role Phone Elsewhere, Pcp Primary Care Provider Unavailabl e Reason for Referral * Outpatient (Routine) - Authorized Specialty Diagnoses / Procedures Referred By Contac t Referred To Contact Diagnoses Hematuria Gross Procedures DX Chest AP or PA and Lateral 2 Views Paula Hernandez M.D. [address] [place] [phone] [facility] Referral ID Status Reason Start Date Expiration Date V isits Requested Visits Authorized [id number] Authorized 09/16/2023 09/15/2024 1 1 Encounter Details Date Type Department Care Team (Late st Contact Info) Description 09/16/2023 Orders Only Department of Urology in [place], [place] [address] [place] [phone] Paula Hernandez M.D. [address] [place] [phone] Hematuria Gross (Primary Dx) Social History Tobacco Use Types Packs/Day Years Used Date Smoking Tobacco: Never Smokeless Tobacco: Never [facility] Utilities Answer Date Recorded In [...] CDT Procedure visit Department of Urology in [place], [place] [address] [place] [address] Burke Strauss M.D. [address] [place] [address] Discharge Disposition: Home or Self Care 12/07/2023 10:30 AM CDT Office Visit Department of Urology in [place], [place] [address] [place] [address] Burke Strauss M.D. [address] [place] [address] Discharge Disposition: Home or Self Care Scheduled [...] documented as of this encounter Care Teams Biofuels Manager Relationship Specialty Start Date End Date Elsewhere, Pcp PCP - General Internal Medicine 08/13/23 documented as of this encounter
--- OUTSIDE RECORDS SUMMARY | 2023-11-28 08:21 | XMS_ITS | Encounter Summary ---
Author Organization [facility] Address [address] [place] [address] Care Team Providers Care Channeling Machine Runner Name Role Phone Elsewhere, Pcp Primary Care Provider Unavailabl e Encounter Details Date Type Department Care Team (Late st Contact Info) Description 09/27/2023 Clinical Communication Department of Urology in [place], [place] [address] [place] [phone] Paula Hernandez M.D. [address] [place] [address] Social History Tobacco Use Types Packs/Day Years Used Date Smoking Tobacco: Never Smokeless Tobacco: Never [facility] Utilities Answer Date Recorded In the past 12 months has [facility] electric, gas, oil, or water [employer] threatened to shut off services in your [...] CDT Procedure visit Department of Urology in [address] [phone] Burke Strauss M.D. [address] [place] [phone] Discharge Disposition: Home or Self Care 12/07/2023 10:30 AM CDT Office Visit Department of Urology in [place], [place] [address] [place] [address] Burke Strauss M.D. [address] [place] [phone] Discharge Disposition: Home or Self Care documented as of this encounter Visit Diagnoses Not on filedocumented in this encounter Care Teams Channeling Machine Runner Relationship Specialty Start Date End Date Elsewhere, Pcp PCP - General Internal Medicine 08/13/23 documented as of this encounter
--- OUTSIDE RECORDS SUMMARY | 2023-11-28 08:22 | XMS_ITS | Encounter Summary ---
Author Organization [facility] Address [address] [place] [address] Care Team Providers Care Grounds Crew Supervisor Name Role Phone Elsewhere, Pcp Primary Care Provider Unavailabl e Reason for Visit * Reason Comments Urinary Problem Rapid Heart Rate Encounter Details Date Type Department Care Team (Late st Contact Info) Description 08/31/2023 12:36 PM CDT - 08/31/2023 2:31 PM CDT Surgery RST ROMB MAIN OR [address] [place] [address] Mayur Alvarez M.D. [address] [place] [phone] CYSTOSCOPY EVACUATION CLOTS Social History Tobacco Use Types Packs/Day Years Used Date Smoking Tobacco: Never Smokeless Tobacco: Never [facility] Utilities Answer Date Recorded In the past [...] PM CDT DISCHARGE SUMMARY BRIEF OVERVIEW Hospital: [facility] Discharge Provider: Mayur Alvarez M.D. [...] CYSTOGRAM Mayur Alvarez M.D.White, Lindsay A, M.D. [facility] ROMB OR DISCHARGE DISPOSITION Home-Health Care [facility] [6] ACTIVE ISSUES REQUIRING FOLLOW UP OUTPATIENT [...] CONSULT TO CARE MANAGEMENT IP CONSULT TO LAVATORY ATTENDANT WOUND CARE IP CONSULT TO HYPERBARIC MEDICINE CONDITION AT DISCHARGE improved Discharge instructions were provided to the patient and caregiver(s). documented in this encounter Discharge Instructions * Patient Instructions* Carmen Louis, R.N. - 08/31/2023 9:44 AM CDT The Senior LinkAge Line?? is a service of the [place] Board on Aging in partnership with [place]'s Area Agencies on Aging. It is a free service of the [facility] that connects older [place] and their families with the help they need. Call the Senior LinkAge Line?? at: [phone] M-F, 8am-4:30pm to connect with specialists that are available to assist you with your specific needsor check out their website at https://www.[email or web address] * Attachments The following attachments cannot be sent through Care Everywhere. * Cefdinir (By mouth) (Ugandan) documented in this encounter [...] for catheter irritation. 30 g 08/26/2023 09/09/2023 clopidogreL (PLAVIX) 75 mg tablet Take 75 [...] questions or concerns. Pager during business hours: [phone] Pager after hours: [phone] * Jeffery Valdez M.D. - 09/04/2023 10:34 [...] questions or concerns. Pager during business hours: [phone] Pager after hours: [phone] * Jeffery Valdez M.D. - 09/03/2023 4:10 [...] [facility]: Diet: Regular Activity: [...] questions or concerns. Pager during business hours: [phone] Pager after hours: [phone] * Paula Hernandez M.D. - 09/02/2023 6:25 [...] questions or concerns. Pager during business hours: [phone] Pager after hours: [phone] * Michelle Willams RJonahN., C.W.C.N. - 09/01/2023 11:43 AM CDT [facility] Wound RN consulted to assess [...] Secondary Dressing Status Clean;Dry;Intact Changed by Wound dust collector operator Ongoing management Nursing;Wound/government relations analyst Urine Assessment Urine Color Colorless Hematuria Scale Avery Urine Appearance Clear;Sediment Head to toe skin [...] update the patient. Son stated that a Flash Oven Operator visited the home and will be trying to assist both and patient with cares/coordination. OBJECTIVE Patient is located on [facility] room 111. Referrals were sent to the following agencies: Home Medical Care - Admitted Since 08/30/2023 Service Provider Request Status Selected Services Address Phone Fax Patient Preferred [facility] [place] Pending - Request Sent N/A [address], [facility] [phone] -- [facility] Pending - Request Sent N/A [address] [facility] [address], [facility] [phone] -- Home Health Care Pending - Request Sent N/A [address], [facility] [address] -- [facility] Pending - Request Sent N/A [address] [facility] [phone] -- [facility] Pending - Request Sent N/A [address] [facility] [phone] -- [facility] Pending - Request Sent N/A [address] [facility] [address], [facility] [phone] -- [facility] Declined Facility Full N/A [address] [facility] [phone] -- ASSESSMENT / PLAN ASSESSMENT Consumer Recruiter attempted to contact patient on room phone but was unable to get through. Case Manageras able to reach his son who will update that patient that the preferred home health agency was unable to accept and that referrals would be sent to other home health agencies. Requested services arenursing for wound care and catheter and PT/OT. PLAN Consumer Recruiter will follow up with referrals. Case Manger [...] questions or concerns. Pager during business hours: [phone] Pager after hours: [phone] * Paula Hernandez M.D. - 08/31/2023 10:45 [...] risks associated with surgery and anesthesia including ND, stroke, and VTE were also discussed. Finally, [...] questions or concerns. Pager during business hours: [phone] Pager after hours: [phone] Associated attestation - Mayur Alvarez M.D. - 08/31/2023 12:14 PM CDT I agree with the Urology Chief Service plan for palliative cystoscopy under anesthesia, clot evacuation, proceed as indicated. We will plan for judicious irrigation given his recent bladder surgery and we will perform a cystogram at the end of the procedure. * Demarco Salazar, PharmJonahD., R.Ph., [facility] - 08/31/2023 7:19 AM CDT [...] of antibiotics. Pedrito Salazar Pharm.D., R.Ph., [facility] Admission Medication History Note Adherence [...] Complete Set By: Demarco Salazar Pharm.D., R.Ph., [facility] at 08/31/2023 7:22 AM Taking? [...] 83 y.o. male transferred to the [facility] ED for further management of gross hematuria. [...] CBI. He was then transferred to [facility] on 08/12; a CT cystogram was performed [...] initiated on CBI and transferred to [facility] for further management. On my initial evaluation [...] for radiation proctitis SOCIAL HISTORY Lives in [place], [place] OBJECTIVE Vitals Blood pressure 134/84, pulse [...] & Screen Expiration 09/02/2023 23:59 Testing Location [facility] Imagin08/30/23 EXAM: US URINARY BLADDER COMPARISON: CT [...] clot obstruction and was transferred to [facility] for further evaluation and management. Urinary bladder ultrasound showing 5 cm clot burden; catheter draining on fast-rate CBI after multiple rounds of hand irrigation. Plan - Continue CBI - Q2h hr hand irrigations - NPO overnight pending am re-evaluation - Hold Plavix, Xarelto for now The above was discussed with Drs. Venegas and Lefty, the chief urology residents full fashioned garment knitter. Please page chief Urology [place] [phone] [place] [phone] afterhours. documented in this encounter Procedure Notes * Leonardo Kellogg R.N. - 08/30/2023 8:00 PM CDT Procedures documented in this encounter Consult Notes * Kelvni Dunalp M.B.BJonahS., M.P.H. - 09/01/2023 6:54 AM CDTAssociated [...] on androgen deprivation therapy. 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 No scuba diving experience. Electronic [...] prolonged inpatient stay, would request transfer to [facility] prior to initiation of hyperbaric oxygen [...] 11 Referral Reason: Discharge Planning Primary Language: Ugandan Certified Hyperbaric Technician Services Used: No Person(s) present during interview: Person(s) Present During Interview: patient and child Kar History of Present Illness #1 Hematuria Social History Support System: spouse, children, and home care staff Primary Caregiver: self and family Finance/Insurance Primary insurance: MEDICARE A AND B Secondary insurance: [employer] benefits: No Advance Directives Legal Decision Maker: Self Advance Directives: N/A Advance Directives Status: N/A OBJECTIVE Baseline Functional Status Baseline Activities of Daily Living Mobility: Requires aide of device Dressing: Independent Feeding: Independent Bathing: Independent Grooming: Independent Toileting: Independent Behavior: Appropriate, Pleasant, Calm, Cooperative, Oriented Communication: Can write, Talks, Understands speaking, Understands Ugandan, Reads Shopping: Needs assistance Medication Management: Independent Housekeeping: Needs assistance Meal Prep: Independent Assistive Devices: Walker - front wheeled, Eyeglasses, Hearing aid(s) Agency Name: [facility] Provided: Penitentiary/PT/OT Transportation: Support from family Baseline Services/Resources Primary care clinic and provider: ELSEWHERE, PCP Additional Resources: N/A Anticipated Needs Functional Status: Housekeeping, Shopping, Transportation use (drive car, use taxi/bus), Mobility, Transfer to/from bed, chair, etc., Bathing Assistive Devices: Eyeglasses, Hearing aid(s), Walker - front wheeled Services/Resources: Home health Agency Name: [facility] Provided: Penitentiary/PT/OT Anticipated Modifications to the Patient's Home: None Transportation Needs: Support from family Does the patient need discharge transport arranged?: No Anticipated Discharge Destination: Home-Health Care [facility] ASSESSMENT / PLAN Assessment: The media aid met with Kalen Vega to discuss his current hospitalization and home goingneeds. The patient was accompanied by son, Kar . The patient was a reliable historian. The role ofRN Consumer Recruiter was reviewed. The patient reviewed his prior level of care and support system. The patient receives support from his and children. The patient described his living environment as a home with bedroom and bathroom on same floor withstairs to enter with rails. Housekeeping, grocery shopping, meal prep, and other household responsibilities have previously been completed by patient and patient's son. media aid discussed the patient's potential needs at dismissal based on their home setting, previous needs and responsibilities, homebound status, and relevant assessments with the patient. The patient will be safe and supported to return home with [facility] or previous services noted above when medically [...] PICC removal he would not need care. Consumer Recruiter will clarifywith home health team regarding if [...] chart and meeting with the patient, the media aid deemed the LACE+/readmission questions were appropriate. The [...] current readmission could have been prevented. The media aid will share this information with the care team. The patient reports understanding that he will dismiss from the hospital when medically stable. Thefollowing potential barriers to dismissal have been identified: Home Health Care Addendum 1230: Consumer Recruiter called [facility]. They received the referral but declined due to being at capacity. Plan: The patient agrees with the following plan. Patient's anticipated discharge disposition is: Home with Home Healthcare Referrals sent. Transportation upon dismissal will be provided by family--Kar . media aid recommended home health services. media aid provided information regarding the dismissal process and the Senior Linkage Line ([place] Board on Aging) handout. media aid placed or requested the following hospital-based consult orders and/or referrals: None. media aid will follow up with the patient to [...] with updates and/or transition plan to come. media aid encouraged the patient to reach out with [...] CDT Pre-op Diagnosis Hematuria Post-op Diagnosis Hematuria Optical Technician A first coat sander actively participated and was necessary for one [...] or filling defects. 5. Placement of [address] catheter with 20 cc in [...] The resectoscope was removed and a [address] catheter was placed with 20 [...] secondary to cystostomy closure presenting today from [place] with concerns for worsening hematuria. He was [...] Pt had a3 way jon placed at [place], and transferred here because the clots returned. [...] RN, CPN, CCDS, CCS, CRC Clinical Documentation Medical Insurance Claims Processor Query created by: ELMER Barker, RN, CPN, [...] Procedure visit Department of Urology in [place], [place] [address] [place] [address] Burke Strauss M.D. [facility] [place] [address] Discharge Disposition: Home or Self Care 12/07/2023 10:30 AM CDT Office Visit Department of Urology in [place], [place] [address] [facility] [place] [phone] Burke Strauss M.D. [address] [place] [address] Discharge Disposition: Home or Self Care Pending [...] M.D. LAB BLOOD ADD-ON Performing Organization Address City/[facility]/ZIP Co de Phone Number [facility] [place] [address] [place], [place] [address] DTL [facility] [address] [place] [address] * (ABNORMAL) Basic Metabolic Panel (09/05/2023 4:52 AM CDT) [facility] Potassium, S 3.6 3.6 - [...] CITY, [facility] [address] [place] [address], [facility] DTL [facility] [address] [place] [address] * (ABNORMAL) Basic Metabolic Panel (09/04/2023 8:15 [...] CDT Jeffery Valdez M.D. LAB BLOOD ADD-ON [facility] [address] [place] [address], [facility] [place] [address] [place] [address] * (ABNORMAL) CBC without Differential (09/04/2023 8:15 PM CDT) Hemoglobin 9.6(L) 13.2 - 16.6 g/dL 09/04/2023 9:19 PM CDT [facility] Hematocrit 30.4(L) 38.3 - 48.6 % 09/04/2023 [...] CDT Jeffery Valdez M.D. LAB BLOOD ADD-ON [facility] [place] [address] [place] [address], [facility] [address] [place] [address] * Transfuse Red Blood Cells : (09/04/2023 [...] 11:46 AM CDT STRM Testing Location [facility] 09/04/2023 11:21 AM CDT STRM Blood (Blood, Venous) 09/04/2023 10:59 AM CDT 09/04/2023 11:21 AM CDT Jeffery Valdez M.D. LAB BLOOD BANK TEST ORDERABLES Performing Organization Address [facility] Co de Phone Number [facility] [place] [address] [place] [address], [facility] STRM [facility] [address] [place] [address] * Heparin Anti-Xa Assay (09/04/2023 7:34 AM [...] BLOOD NON A DD-ON Performing Organization Address [facility]/ZIP Co de Phone Number [facility] [place] [address] [place] [address], [facility] DTL [facility] [address] [place] [address] * (ABNORMAL) CBC without Differential (09/04/2023 7:34 [...] CDT Paula Hernandez M.D. [place] [address], [facility] [place] [place] [address] * Heparin Anti-Xa Assay (09/04/2023 12:30 AM CDT) [facility] Heparin Anti-Xa, P 0.27 IU/mL [...] NON A DD-ON Performing Organization Address [facility] Co de Phone Number [facility] [place] [address] [place] [address] * Bacterial Culture, Aerobic + Susceptibility, Urine (09/03/2023 10:50 AM CDT) [facility] Urine Culture No growth after 1 day of incubation. 09/04/2023 8:52 AM CDT DTL Urine (Urine, Indwelling Catheter) 09/03/2023 10:50 AM CDT 09/03/2023 11:53 AM CDT Comment:Specimen Source Site : Urine Jeffery Valdez M.D. LAB MICROBIOLOGY - G ENERAL ORDERABLES Performing Organization Address [facility] Co de Phone Number [facility] [place] [address] [place] [address] * (ABNORMAL) CBC without Differential (09/03/2023 3:29 AM CDT) [facility] Hemoglobin 8.0(L) 13.2 - 16.6 [...] M.D. LAB BLOOD ADD-ON Performing Organization Address [facility]/ZIP Co de Phone Number [facility] [place] [address] [place] [address] * Heparin Anti-Xa Assay (09/03/2023 3:29 AM [...] BLOOD NON A DD-ON Performing Organization Address [facility]/ZIP Co de Phone Number [facility] [place] [address] [place] [address] * Heparin Anti-Xa Assay (09/02/2023 2:57 AM [...] Alvarez M.D. LAB BLOOD NON A DD-ON [place] [address] [place], [place] [phone] [place] [address] [place] [address] * (ABNORMAL) CBC without Differential (09/01/2023 8:16 PM CDT) [facility] Hemoglobin 8.5(L) 13.2 - 16.6 [...] LAB BLOOD ADD-ON Performing Organization Address [facility] Co de Phone Number [facility] [place] [address] [place], [place] [phone] [place] [address] [address] [place] [address] * Heparin Anti-Xa Assay (09/01/2023 6:50 PM [...] BLOOD NON A DD-ON Performing Organization Address [facility] Co de Phone Number [facility] [place] [address] [place] [address], [facility] [place] [address] [place] [address] * APTT (Activated Partial Thromboplastin Time) (09/01/2023 9:05 AM CDT) Activated Partial Thrombopl Time, P 28 25 - 37 sec 09/01/2023 9:35 AM CDT [facility] Blood (Blood, Venous) 09/01/2023 9:05 AM CDT 09/01/2023 9:21 AM CDT Paula Hernandez M.D. LAB BLOOD ADD-ON [facility] [place] [address] [place] [address], [facility] [address] [place] [address] * (ABNORMAL) Basic Metabolic Panel (08/31/2023 9:36 PM CDT) [facility] Potassium, S 4.0 3.6 - [...] [place] [address] [place], [place] [phone] [place] [address] [facility] [place] [address] [place] [address] * (ABNORMAL) CBC without Differential (08/31/2023 9:36 [...] [place] [address] [facility] [place] [address] [place] [address] * [place] Fluoro Less Than 1 Hour [...] LAB BLOO D ADD-ON Performing Organization Address [facility] Co de Phone Number [facility] [place] [address] [facility] [address] [place] [address] * Type and Screen (with Reflex Antibody ID) (08/30/2023 9:50 PM CDT) Pathologist [facility] ABORh O Pos Not applicable 08/30/2023 10:17 PM CDT STRM Antibody Screen Negative Negative 08/30/2023 10:31 PM CDT STRM Type & Screen Expiration 09/02/2023 23:59 08/30/2023 10:17 PM CDT STRM Testing Location [facility] DEFAULT 08/30/2023 9:58 PM CDT STRM Blood (Blood, Venous) 08/30/2023 9:50 PM CDT 08/30/2023 9:58 PM CDT Shannan Correa D.O., M.H.A. LAB BLOOD BANK TEST ORDERABLES Performing Organization Address [facility] Co de Phone Number [facility] [place] [address] [place] [address], [facility] STRM [facility] [address] [place] [address] * Lactate (08/30/2023 9:50 PM CDT) Lactate, P 1.8 0.5 - 2.2 mmol/L 08/30/2023 10:09 PM CDT [facility] Blood (Blood, Venous) 08/30/2023 9:50 PM CDT 08/30/2023 9:55 PM CDT Shannan Correa D.O., M.H.A. LAB BLOOD NON ADD-ON [facility] [place] [address] [place] [address], [facility] STMA [facility] [address] [place] [address] * (ABNORMAL) Basic Metabolic Panel (08/30/2023 9:49 [...] Correa D.O. M.H.A. LAB BLOOD ADD- ON [facility] [place] [address] [place] [address], [facility] STMA [facility] [address] [place] [address] * (ABNORMAL) CBC with Differential, Blood (08/30/2023 [...] Correa D.O., M.H.A. LAB BLOOD ADD- ON [facility] [place] [address] [place] [address], [place] STMA [facility] [address] [place] [address] [facility] [address] [place] [address] * DX Chest AP or PA and [...] CDT) Ventricular Rate ECG/Min 145 BPM MUSE DE Interval 136 ms MUSE QRSD Interval 64 ms MUSE QT Interval 260 ms MUSE QTC Interval 403 ms MUSE P [place] 44 degrees MUSE R [place] 9 degrees MUSE T Wave [place] -76 degrees MUSE 08/30/2023 7:44 PM CDT [...] give total of 40 mEq Dissolve per repairer evaporator recommendations. Do NOT chew or swallow tablet., [...] Repeat anti-Xa: 6 hours after Heparin resumed 4460 (New Bag - Provider: Sarah Morgan RJonahNJonah [...] 2256 documented in this encounter Care Teams Grounds Crew Supervisor Relationship Specialty Start Date End Date Elsewhere, Pcp PCP - General Internal Medicine 08/13/23 documented as of this encounter
--- OUTSIDE RECORDS SUMMARY | 2023-11-28 08:22 | XMS_ITS | Encounter Summary ---
Author Organization [facility] Address [address] [place] [phone] Care Team Providers Care Creative Art Therapist Name Role Phone Elsewhere, Pcp Primary Care Provider Unavailabl e Encounter Details Date Type Department Care Team (Late st Contact Info) Description 08/31/2023 12:34 PM CDT Anesthesia Event RST ROMB MAIN OR [address] [place] [address] [phone] Joe Stoll M.D. [address] [place] [address] [phone] Benjamin Williamson APRN, CARD GAME OPERATOR [address] [place] [phone] Anesthesia Record Procedure Summary Procedure Name Responsible [...] 1402 08/31/23 1243 by Benjamin Williamson APRN, CARD GAME OPERATOR 08/31/23 1402 by Benjamin Williamson APRN, CARD GAME OPERATOR Indwelling Urinary Catheter Placement Date: 08/31/23; Placement [...] the past 12 months has [facility] [employer], oil, or water [employer] threatened to shut off services in your [...] [facility] live 08/13/2023 Sex and Gender Information Value Date Recorded Sex Assigned at Not on file Gender Identity Not on file Sexual Orientation Not on file documented as of this encounter OR Notes * Anesthesia Postprocedure Evaluation - Joe Stoll M.D. - 08/31/2023 5:27 PM CDT Patient: Kalen Vega Procedure Summary Date: 08/31/23 Room / Location: [address] 01 530 / [facility] in [place], [place] Anesthesia Start: 1234 Anesthesia Stop: 1420 [...] RM OR 108 ROMB 01 530 / [facility] in [place], [place] Providers: Mayur Alvarez M.D. Pertinent components [...] patient / legal guardian, or through an new accounts banking representative; patient evaluated and approved for anesthesia / [...] CDT Procedure visit Department of Urology in [address] [phone] Burke Strauss M.D. [address] [place] [phone] Discharge Disposition: Home or Self Care 12/07/2023 10:30 AM CDT Office Visit Department of Urology in [place] [address] [place] [phone] Burke Strauss M.D. [facility] [place] [phone] Discharge Disposition: Home or Self Care documented [...] mg documented in this encounter Care Teams Creative Art Therapist Relationship Specialty Start Date End Date Elsewhere, Pcp PCP - General Internal Medicine 08/13/23 documented as of this encounter
--- OUTSIDE RECORDS SUMMARY | 2023-11-28 08:22 | XMS_ITS | Encounter Summary ---
Author Organization [facility] Address [address] [place] [address] Care Team Providers Care Human Resources Administrator Name Role Phone Elsewhere, Pcp Primary Care Provider Unavailabl e Encounter Details Date Type Department Care Team (Late st Contact Info) Description 09/06/2023 Clinical Communication RST HIM [address] [place] [phone] Yasmine Loco Social History Tobacco Use Types Packs/Day Years Used Date Smoking Tobacco: Never Smokeless Tobacco: Never C Utilities Answer Date Recorded In the past 12 months has [facility] [employer], gas, oil, or water [employer] threatened to shut off services in [...] your living situation today? I have a [facility] place to live 09/09/2023 Sex and Gender Information Value Date Recorded Sex Assigned at Not on file Gender Identity Not on file Sexual Orientation Not on file documented as of this encounter Plan of Treatment Upcoming Encounters Date Type Department Care Team (Latest Contact Info) Description 12/07/2023 10:15 AM CDT Procedure visit Department of Urology in [place] [address] [place] [phone] Burke Strauss M.D. [facility] [place] [phone] Discharge Disposition: Home or Self Care 12/07/2023 10:30 AM CDT Office Visit Department of Urology in [place] [address] [place] [phone] Burke Strauss M.D. [address] [place] [phone] Discharge Disposition: Home or Self Care documented as of this encounter Visit Diagnoses Diagnosis Hematuria Gross- Primary documented in this encounter Care Teams Human Resources Administrator Relationship Specialty Start Date End Date Elsewhere, Pcp PCP - General Internal Medicine 08/13/23 documented as of this encounter
--- OUTSIDE RECORDS SUMMARY | 2023-11-28 08:22 | XMS_ITS | Encounter Summary ---
Author Organization [facility] Address [address] [place] [address] Care Team Providers Care Director Social Welfare Name Role Phone Elsewhere, Pcp Primary Care Provider Unavailabl e Encounter Details Date Type Department Care Team (Late st Contact Info) Description 09/09/2023 Documentation Department of Urology in [place], [place] [address] [place] [phone] Ko Victoria M.D. [address] [place] [phone] Social History Tobacco Use Types Packs/Day Years Used Date Smoking Tobacco: Never Smokeless Tobacco: Never [facility] Utilities Answer Date Recorded In the past 12 months has [facility] [employer], gas, oil, or water [employer] threatened to shut off services in your [...] visit Department of Urology in [place] [address] [place] [phone] Burke Strauss M.D. [address] [place] [phone] Discharge Disposition: Home or Self Care 12/07/2023 10:30 AM CDT Office Visit Department of Urology in [address] [phone] Burke Strauss M.D. [address] [place] [phone] Discharge Disposition: Home or Self Care documented as of this encounter Visit Diagnoses Not on filedocumented in this encounter Care Teams Director Social Welfare Relationship Specialty Start Date End Date Elsewhere, Pcp PCP - General Internal Medicine 08/13/23 documented as of this encounter
--- OUTSIDE RECORDS SUMMARY | 2023-11-28 08:22 | XMS_ITS | Encounter Summary ---
Author Organization [facility] Address [address] [place] [address] Care Team Providers Care Social Service Worker Name Role Phone Elsewhere, Pcp Primary Care Provider Unavailabl e Reason for Visit * Reason Comments Urinary Problem Rapid Heart Rate Encounter Details Date Type Department Care Team (Latest Contact Info) Description 08/30/2023 7:35 PM CDT - 09/05/2023 4:09 PM CDT Hospital Encounter [facility], [facility], [facility], First Floor [address] [place] [address] Kirstin Hughes M.D. [address] [place] [phone] Mayur Alvarez M.D. [address] [place] [phone] Hematuria (Primary Dx); Tachycardia; Hematuria Gross Discharge [...] [facility] 09/05/2023 Sex and [...] PM CDT DISCHARGE SUMMARY BRIEF OVERVIEW Hospital: [facility] Discharge Provider: Mayur Alvarez M.D. Primary Team: [facility] Urology Surgery - Chief Helga Rojas Primary [...] CYSTOGRAM Mayur Alvarez M.D.White, Lindsay A, M.D. [facility] ROMB OR DISCHARGE DISPOSITION Home-Health Care [facility] [6] ACTIVE ISSUES REQUIRING FOLLOW UP OUTPATIENT [...] CONSULT TO CARE MANAGEMENT IP CONSULT TO HIGH SCHOOL COORDINATOR WOUND CARE IP CONSULT TO HYPERBARIC MEDICINE CONDITION AT DISCHARGE improved Discharge instructions were provided to the patient and caregiver(s). documented in this encounter Discharge Instructions * Patient Instructions* Carmen Louis, R.N. - 08/31/2023 9:44 AM CDT The Senior LinkAge Line?? is a service of the [place] Board on [place] in partnership with [place] [facility] Agencies on Aging. It is a free service of the [facility] that connects older [place]ans and their families with the help they need. Call the Senior LinkAge Line?? at: [phone] M-F, 8am-4:30pm to connect with specialists that are available to assist you with your specific needsor check out their website at [email or web address] * Attachments The following attachments cannot be sent through Care Everywhere. * Cefdinir (By mouth) (Arabic) documented in this encounter Medications at Time [...] questions or concerns. Pager during business hours: [phone] Pager after hours: [phone] * Jeffery Valdez M.D. - 09/04/2023 10:34 [...] questions or concerns. Pager during business hours: [phone] Pager after hours: [phone] * Jeffery Valdez M.D. - 09/03/2023 4:10 [...] consider transitioning [facility]: Diet: Regular Activity: [...] questions or concerns. Pager during business hours: [phone] Pager after hours: [phone] * Paula Hernandez M.D. - 09/02/2023 6:25 [...] questions or concerns. Pager during business hours: [phone] Pager after hours: [phone] * Michelle Willams R.N., C.W.C.N. - 09/01/2023 11:43 AM CDT [facility] Wound RN consulted to assess Kalen [...] Secondary Dressing Status Clean;Dry;Intact Changed by Wound take off man Ongoing management Nursing;Wound/loader demolder Urine Assessment Urine Color Colorless Hematuria Scale [place] Urine Appearance Clear;Sediment Head to toe skin [...] update the patient. Son stated that a Locomotive Crane Operator visited the home and will be trying to assist both and patient with cares/coordination. OBJECTIVE Patient is located on [facility] room 111. Referrals were sent to the following agencies: Home Medical Care - Admitted Since 08/30/2023 Service Provider Request Status Selected Services Address Phone Fax Patient [facility] [place] [facility] Pending - Request Sent N/A [address] [facility] [phone] -- [facility] - Request Sent N/A [address] [facility] [address] [phone] -- Home Health Care Pending - Request Sent N/A [address] [facility] [address] [address] -- [facility] Pending - Request Sent N/A [address] [facility] [address] [phone] -- [facility] Pending - Request Sent N/A [address] [facility] [phone] -- [facility] Pending - Request Sent N/A [address] [facility] [address] [phone] -- [facility] Home Health Declined Facility Full N/A [address] [facility] [phone] -- ASSESSMENT / PLAN ASSESSMENT Garage Supervisor attempted to contact patient on room phone but was unable to get through. Case Manageras able to reach his son who will update that patient that the preferred home health agency was unable to accept and that referrals would be sent to other home health agencies. Requested services arenursing for wound care and catheter and PT/OT. PLAN Garage Supervisor will follow up with referrals. Case [...] questions or concerns. Pager during business hours: [phone] Pager after hours: [phone] * Paula Hernandez M.D. - 08/31/2023 10:45 [...] questions or concerns. Pager during business hours: [phone] Pager after hours: [phone] Associated attestation - Mayur Alvarez M.D. - 08/31/2023 12:14 PM CDT I agree with the Urology Chief Service plan for palliative cystoscopy under anesthesia, clot evacuation, proceed as indicated. We will plan for judicious irrigation given his recent bladder surgery and we will perform a cystogram at the end of the procedure. * Dmearco Salazar, Mireille.D., R.Ph., [facility] - 08/31/2023 7:19 AM CDT [...] discontinuation of antibiotics. Pedrito Salazar Pharm.D., R.Ph., [facility] Admission Medication History Note Adherence [...] Complete Set By: Demarco Salazar Pharm.D., R.Ph., [facility] at 08/31/2023 7:22 AM Taking? [...] 83 y.o. male transferred to the [facility] ED for further management of gross hematuria. [...] CBI. He was then transferred to [facility] on 08/12; a CT cystogram was performed [...] initiated on CBI and transferred to [facility] for further management. On my initial evaluation [...] for radiation proctitis SOCIAL HISTORY Lives in [place], [place] OBJECTIVE Vitals Blood pressure 134/84, pulse [...] & Screen Expiration 09/02/2023 23:59 Testing Location [facility] Imagin08/30/23 EXAM: US URINARY BLADDER COMPARISON: CT [...] clot obstruction and was transferred to [facility] for further evaluation and management. Urinary bladder ultrasound showing 5 cm clot burden; catheter draining on fast-rate CBI after multiple rounds of hand irrigation. Plan - Continue CBI - Q2h hr hand irrigations - NPO overnight pending am re-evaluation - Hold Plavix, Xarelto for now The above was discussed with Drs. Venegas and Lefty, the chief urology residents international trade compliance manager. Please page chief Urology [place] [phone] [place] [phone] afterhours. documented in this encounter Procedure Notes [...] on androgen deprivation therapy. 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 No scuba diving experience. Electronic health [...] inpatient stay, would request transfer to [facility] prior to initiation of hyperbaric oxygen [...] 11 Referral Reason: Discharge Planning Primary Language: Arabic Ecg Technician Services Used: No Person(s) present during [...] Communication: Can write, Talks, Understands speaking, Understands Arabic, Reads Shopping: Needs assistance Medication Management: Independent Housekeeping: Needs assistance Meal Prep: Independent Assistive Devices: Walker - front wheeled, Eyeglasses, Hearing aid(s) Agency Name: [facility] Provided: Long-Term/PT/OT Transportation: Support from family Baseline Services/Resources Primary care clinic and provider: ELSEWHERE, PCP Additional Resources: N/A Anticipated Needs Functional Status: Housekeeping, Shopping, Transportation use (drive car, use taxi/bus), Mobility, Transfer to/from bed, chair, etc., Bathing Assistive Devices: Eyeglasses, Hearing aid(s), Walker - front wheeled Services/Resources: Home health Agency Name: [facility] Provided: Long-Term/PT/OT Anticipated Modifications to the Patient's Home: None Transportation Needs: Support from family Does the patient need discharge transport arranged?: No Anticipated Discharge Destination: Home-Health Care [facility] ASSESSMENT / PLAN Assessment: The clinical studies specialist met with Kalen Vega to discuss his current hospitalization and home goingneeds. The patient was accompanied by son, Kar . The patient was a reliable historian. The role ofRN Garage Supervisor was reviewed. The patient reviewed his prior level of care and support system. The patient receives support from his and children. The patient described his living environment as a home with bedroom and bathroom on same floor withstairs to enter with rails. Housekeeping, grocery shopping, meal prep, and other household responsibilities have previously been completed by patient and patient's son. clinical studies specialist discussed the patient's potential needs at dismissal based on their home setting, previous needs and responsibilities, homebound status, and relevant assessments with the patient. The patient will be safe and supported to return home with [facility] or previous services noted above [...] [facility] care. Patient stated that [employer] was supposed to be set- up at discharge after the last hospital stay but that the company never received orders to start care and that he was told by nursing that due to his PICC removal he would not need care. Garage Supervisor will clarifywith home health team regarding [...] chart and meeting with the patient, the clinical studies specialist deemed the LACE+/readmission questions were appropriate. [...] current readmission could have been prevented. The clinical studies specialist will share this information with the care team. The patient reports understanding that he will dismiss from the hospital when medically stable. Thefollowing potential barriers to dismissal have been identified: Home Health Care Addendum 1230: Garage Supervisor called [facility]. They received the referral but declined due to being at capacity. Plan: The patient agrees with the following plan. Patient's anticipated discharge disposition is: Home with Home Healthcare Referrals sent. Transportation upon dismissal will be provided by family--Kar . clinical studies specialist recommended home health services. clinical studies specialist provided information regarding the dismissal process and the Senior Linkage Line ([place] Board on Aging) handout. clinical studies specialist placed or requested the following hospital-based consult orders and/or referrals: None. clinical studies specialist will follow up with the patient [...] with updates and/or transition plan to come. clinical studies specialist encouraged the patient to reach out [...] CDT Pre-op Diagnosis Hematuria Post-op Diagnosis Hematuria Cover Cutter Machine A registered nurse first assistant actively participated [...] or filling defects. 5. Placement of [address] catheter with 20 cc in [...] The resectoscope was removed and a [address] catheter was placed with 20 [...] secondary to cystostomy closure presenting today from [facility] with concerns for worsening hematuria. He was [...] Pt had a3 way jon placed at [facility], and transferred here because the clots returned. [...] RN, CPN, HELDERS, CCS, CRC Clinical Documentation Production Boring Machine Operator Query created by: ELMER Barker, [...] CDT Procedure visit Department of Urology in [place], [place] [address] [place] [address] Burke Strauss M.D. [address] [place] [address] Discharge Disposition: Home or Self Care 12/07/2023 10:30 AM CDT Office Visit Department of Urology in [place], [place] [address] [place] [address] Burke Strauss M.D. [address] [place] [address] Discharge Disposition: Home or Self Care Pending [...] CDT Roxy Romero M.D. LAB BLOOD ADD-ON [facility] [address] [place] [address], [facility] DTL [facility] [address] [place] [address] * (ABNORMAL) Basic Metabolic Panel (09/05/2023 4:52 [...] [facility]/ZIP Co de Phone Number [facility] [address] [place] [address], [facility] [address] [place] [address] * (ABNORMAL) Basic Metabolic Panel (09/04/2023 8:15 PM CDT) Pathologist [facility] Potassium, S 3.2(L) 3.6 - 5.2 [...] CDT Jeffery Valdez M.D. LAB BLOOD ADD-ON [facility] [address] [place] [address], [facility] [address] [place] [address] * (ABNORMAL) CBC without Differential (09/04/2023 8:15 PM CDT) Pathologist [facility] Hemoglobin 9.6(L) 13.2 - 16.6 g/dL [...] CDT Jeffery Valdez M.D. LAB BLOOD ADD-ON [facility] [address] [place] [address], [facility] [address] [place] [address] * Transfuse Red Blood Cells : (09/04/2023 3:30 PM CDT) Jeffery Valdez M.D. BLOOD TRANSFUSION OR DERABLES * Transfuse Red Blood Cells : , 1 Units (09/04/2023 3:30 PM CDT) Jeffery Valdez M.D. BLOOD TRANSFUSION OR DERABLES * Type and Screen (with Reflex Antibody ID) (09/04/2023 10:59 AM CDT) Pathologist [facility] ABORh O Pos Not applicable 09/04/2023 11:46 AM CDT STRM Antibody Screen Negative Negative 09/04/2023 11:59 AM CDT STRM Type & Screen Expiration 09/07/2023 23:59 09/04/2023 11:46 AM CDT STRM Testing Location [facility] DEFAULT 09/04/2023 11:21 AM CDT STRM Blood (Blood, Venous) 09/04/2023 10:59 AM CDT 09/04/2023 11:21 AM CDT Jeffery Valdez M.D. LAB BLOOD BANK TEST ORDERABLES Performing Organization Address [facility] Co de Phone Number [facility] [address] [place] [address], [facility] STRM [facility] [address] [place] [address] * Heparin Anti-Xa Assay (09/04/2023 7:34 AM [...] BLOOD NON A DD-ON Performing Organization Address [facility] Co de Phone Number [facility] [address] [place] [address], [facility] DTL [facility] [address] [place] [address] * (ABNORMAL) CBC without Differential (09/04/2023 7:34 [...] ADD-ON [facility] [address] [address], [place] [address] * Heparin Anti-Xa Assay (09/04/2023 12:30 AM CDT) Pathologist [facility] Heparin Anti-Xa, P 0.27 IU/mL 2023 [...] BLOOD NON A DD-ON Performing Organization Address [facility] Co de Phone Number [facility] [address] [place] [address] * Bacterial Culture, Aerobic + Susceptibility, Urine (09/03/2023 10:50 AM CDT) [facility] Urine Culture No growth after 1 day of incubation. 09/04/2023 8:52 AM CDT DTL Urine (Urine, Indwelling Catheter) 09/03/2023 10:50 AM CDT 09/03/2023 11:53 AM CDT Comment:Specimen Source Site : Urine Jeffery Valdez M.D. LAB MICROBIOLOGY - G ENERAL ORDERABLES Performing Organization Address [facility] Co de Phone Number [facility] [address] [place] [address] * (ABNORMAL) CBC without Differential (09/03/2023 3:29 [...] M.D. LAB BLOOD ADD-ON Performing Organization Address [facility] Co de Phone Number [facility] [address] [place] [address] * Heparin Anti-Xa Assay (09/03/2023 3:29 AM [...] BLOOD NON A DD-ON Performing Organization Address [facility] Co de Phone Number [facility] [address] [place] [address], [facility] [address] [place] [address] * Heparin Anti-Xa Assay (09/02/2023 2:57 AM CDT) [facility] Heparin Anti-Xa, P 0.24 IU/mL 2023 4:09 [...] Alvarez M.D. LAB BLOOD NON A DD-ON [address] [address], [facility] [address] [address] * (ABNORMAL) CBC without Differential (09/01/2023 8:16 PM CDT) [facility] Hemoglobin 8.5(L) 13.2 - 16.6 g/dL 09/01/2023 [...] M.D. LAB BLOOD ADD-ON Performing Organization Address [facility] Co de Phone Number [facility] [address] [place], [place] [phone] [place] [address] [facility] [address] [place] [address] * Heparin Anti-Xa Assay (09/01/2023 6:50 PM [...] BLOOD NON A DD-ON Performing Organization Address [facility] Co de Phone Number [facility] [address] [place] [address], [facility] [address] [place] [address] * APTT (Activated Partial Thromboplastin Time) (09/01/2023 9:05 AM CDT) Activated Partial Thrombopl Time, P 28 25 - 37 sec 09/01/2023 9:35 AM CDT [facility] Blood (Blood, Venous) 09/01/2023 9:05 AM CDT 09/01/2023 9:21 AM CDT Paula Hernandez M.D. LAB BLOOD ADD-ON [facility] [address] [place] [address], [facility] [address] [place] [address] * (ABNORMAL) Basic Metabolic Panel (08/31/2023 9:36 [...] [facility]/ZIP Co de Phone Number [facility] [address] [place], [place] [address] [address] [address] * (ABNORMAL) CBC without Differential (08/31/2023 9:36 PM CDT) Pathologist [facility] Hemoglobin 8.6(L) 13.2 - 16.6 g/dL [...] LAB BLOOD ADD-ON [facility] [address] [place] [address], [facility] [address] [place] [address] * [place] Fluoro Less Than 1 Hour [...] Vieira M.D., [place] [address], [place] [address] * Type and Screen (with Reflex Antibody [...] BLOOD BANK TEST ORDERABLES Performing Organization Address City/[facility]/ZIP Co de Phone Number [facility] [address] STRM [facility] [address] [place] [address] * Lactate (08/30/2023 9:50 PM CDT) Pathologist [facility] Lactate, P 1.8 0.5 - 2.2 mmol/L 08/30/2023 10:09 PM CDT [facility] Blood (Blood, Venous) 08/30/2023 9:50 PM CDT 08/30/2023 9:55 PM CDT Shannan Correa D.O., M.H.A. LAB BLOOD NON ADD-ON Performing Organization Address City/[facility]/ZIP Co de Phone Number [address] STMA [facility] [address] [place] [address] * (ABNORMAL) Basic Metabolic Panel (08/30/2023 9:49 PM CDT) [facility] Potassium, P 3.6 3.6 - 5.2 mmol/L [...] Correa D.O., M.H.A. LAB BLOOD ADD- ON [facility] [address] [place] [address], [facility] [address] [place] [address] * (ABNORMAL) CBC with Differential, Blood (08/30/2023 [...] Correa D.O., M.H.A. LAB BLOOD ADD- ON [facility] [address] [place] [address], [facility] STMA [facility] [address] [place] [address] DHPM [facility] [address] [place] [address] * DX Chest AP or PA and [...] ECG 12 Lead (08/30/2023 7:44 PM CDT) [facility] Ventricular Rate ECG/Min 145 BPM MUSE RI Interval 136 ms MUSE QRSD Interval 64 ms MUSE QT Interval 260 ms MUSE QTC Interval 403 ms MUSE P [place] 44 degrees MUSE R [place] 9 degrees MUSE T Wave [place] -76 degrees MUSE 08/30/2023 7:44 PM CDT [...] give total of 40 mEq Dissolve per assembler lay ups recommendations. Do NOT chew or swallow tablet., [...] Sarah Morgan R.N. - Reason: See Provider Order)6605 (Unheld by provider - Provider: Jeffery Valdez M.D.) 0380 (Given - Provider: Tayler Espinoza R.N.) 0911 [...] give total of 40 mEq Dissolve per assembler lay ups recommendations. Do NOT chew or swallow tablet., Monitor the following for replacement: Potassium, Replace Potassium per: Standard Schedule 0507 (Given - Provider: Mayur CampNJonah) rivaroxaban tablet [...] Order parameters not met)2048 (Given - Provider: Saarh Quintana R.N.) 0916 (Given - Provider: Vanessa [...] 2256 documented in this encounter Care Teams Social Service Worker Relationship Specialty Start Date End Date Elsewhere, Pcp PCP - General Internal Medicine 08/13/23 documented as of this encounter
--- OUTSIDE RECORDS SUMMARY | 2023-11-28 08:22 | XMS_ITS | Encounter Summary ---
Author Organization [facility] Address [address] [place] [address] Care Team Providers Care Zipper Joiner Name Role Phone Elsewhere, Pcp Primary Care Provider Unavailabl e Encounter Details Date Type Department Care Team (Late st Contact Info) Description 09/06/2023 Orders Only Section of Hyperbaric Medicine in [place], [place] [address] [place] [address] Kira Ferraro, ARUN, C.N.P., M.S.N. [address] [place] [address] Social History Tobacco Use Types Packs/Day Years [...] CDT Procedure visit Department of Urology in [address] [phone] Burke Strauss M.D. [address] [place] [phone] Discharge Disposition: Home or Self Care 12/07/2023 10:30 AM CDT Office Visit Department of Urology in [place] [address] [place] [phone] Burke Strauss M.D. 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
--- OUTSIDE RECORDS SUMMARY | 2023-11-28 08:22 | XMS_ITS | Encounter Summary ---
Author Organization [facility] Address [address] [place] [address] Care Team Providers Care Electronic Maintenance Supervisor Name Role Phone Elsewhere, Pcp [...] has e electric, gas, oil, or water [employer] threatened to shut off services in your [...] CDT Procedure visit Department of Urology in [place] [address] [place] [address] Burke Strauss M.D. [address] [place] [phone] Discharge Disposition: Home or Self Care 12/07/2023 10:30 AM CDT Office Visit Department of Urology in [place] [address] [place] [address] Burke Strauss M.D. [address] [place] [phone] Discharge Disposition: Home or Self Care documented [...] on filedocumented in this encounter Care Teams Electronic Maintenance Supervisor Relationship Specialty Start Date End Date Elsewhere, Pcp PCP - General Internal Medicine 08/13/23 documented as of this encounter
--- OUTSIDE RECORDS SUMMARY | 2023-11-28 08:22 | XMS_ITS | Encounter Summary ---
Author Organization [facility] Address [address] [place] [address] Care Team Providers Care Resume Writer Name Role Phone Elsewhere, Pcp Primary [...] has e electric, gas, oil, or water [employer] threatened to shut off services in your [...] CDT Procedure visit Department of Urology in [address] [address] Burke Strauss M.D. [address] [place] [phone] Discharge Disposition: Home or Self Care 12/07/2023 10:30 AM CDT Office Visit Department of Urology in [place] [address] [place] [address] Burke Strauss M.D. [address] [place] [phone] Discharge Disposition: Home or Self Care documented [...] on filedocumented in this encounter Care Teams Resume Writer Relationship Specialty Start Date End Date Elsewhere, Pcp PCP - General Internal Medicine 08/13/23 documented as of this encounter
--- OUTSIDE RECORDS SUMMARY | 2023-11-28 08:23 | XMS_ITS | Encounter Summary ---
Author Organization [facility] Address [address] [place] [address] Care Team Providers Care Pick Up Driver Name Role Phone Elsewhere, Pcp Primary Care Provider Unavailabl e Encounter Details Date Type Department Care Team (Late st Contact Info) Description 08/30/2023 Documentation Department of Urology in [place], [place] [address] [place] [address] Corin Ring M.D. [address] [place] [phone] Social History Tobacco Use Types Packs/Day Years Used Date Smoking Tobacco: Never Smokeless Tobacco: Never [facility] Utilities Answer Date Recorded In the past 12 months has [facility] [employer], gas, oil, or water [employer] threatened to shut off services in [...] [facility] place to live 08/13/2023 Sex and Gender Information Value Date Recorded Sex Assigned at Not on file Gender Identity Not on file Sexual Orientation Not on file documented as of this encounter Plan of Treatment Upcoming Encounters Date Type Department Care Team (Latest Contact Info) Description 12/07/2023 10:15 AM CDT Procedure visit Department of Urology in [place] [address] [place] [address] Burke Strauss M.D. [address] [place] [phone] Discharge Disposition: Home or Self Care 12/07/2023 10:30 AM CDT Office Visit Department of Urology in [place] [address] [place] [address] Burke Strauss M.D. [address] [place] [phone] Discharge Disposition: Home or Self Care documented as of this encounter Visit Diagnoses Not on filedocumented in this encounter Care Teams Pick Up Driver Relationship Specialty Start Date End Date Elsewhere, Pcp PCP - General Internal Medicine 08/13/23 documented as of this encounter
--- OUTSIDE RECORDS SUMMARY | 2023-11-28 08:23 | XMS_ITS | Encounter Summary ---
Author Organization [facility] Address [address] [place] [address] Care Team Providers Care Hemodialysis Technician Name Role Phone Elsewhere, Pcp Primary [...] your living situation today? I have a [facility] place to live 08/13/2023 Sex and Gender Information Value Date Recorded Sex Assigned at Not on file Gender Identity Not on file Sexual Orientation Not on file documented as of this encounter Plan of Treatment Upcoming Encounters Date Type Department Care Team (Latest Contact Info) Description 12/07/2023 10:15 AM CDT Procedure visit Department of Urology in [place] [address] [place] [address] Burke Strauss M.D. [facility] [place] [address] Discharge Disposition: Home or Self Care 12/07/2023 10:30 AM CDT Office Visit Department of Urology in [place] [address] [place] [address] Burke Strauss M.D. 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
--- OUTSIDE RECORDS SUMMARY | 2023-11-28 08:23 | XMS_ITS | Encounter Summary ---
Author Organization [facility] Address [address] [place] [address] Care Team Providers Care Foam Tank Laminator Name Role Phone Elsewhere, Pcp Primary Care Provider Unavailabl e Encounter Details Date Type Department Care Team (Late st Contact Info) Description 08/26/2023 Orders Only Department of Urology in [place], [place] [address] [place] [address] Paula Hernandez M.D. [address] [place] [address] Social History Tobacco Use Types Packs/Day Years Used Date Smoking Tobacco: Never Smokeless Tobacco: Never [facility] Utilities Answer Date Recorded In the past 12 months has [facility] electric, gas, oil, or water [employer] threatened to shut off services in your [...] your living situation today? I have a [facility] place to live 08/13/2023 Sex and Gender Information Value Date Recorded Sex Assigned at Not on file Gender Identity Not on file Sexual Orientation Not on file documented as of this encounter Plan of Treatment Upcoming Encounters Date Type Department Care Team (Latest Contact Info) Description 12/07/2023 10:15 AM CDT Procedure visit Department of Urology in [place] [address] [place] [address] Burke Strauss M.D. [address] [place] [phone] Discharge Disposition: Home or Self Care 12/07/2023 10:30 AM CDT Office Visit Department of Urology in [place], [place] [address] [place] [address] Burke Strauss M.D. [address] [place] [address] Discharge Disposition: Home or Self Care documented as of this encounter Visit Diagnoses Not on filedocumented in this encounter Care Teams Foam Tank Laminator Relationship Specialty Start Date End Date Elsewhere, Pcp PCP - General Internal Medicine 08/13/23 documented as of this encounter
--- OUTSIDE RECORDS SUMMARY | 2023-11-28 08:24 | XMS_ITS | Clinical Summary ---
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 FMY=949.87 Bladder mass 02/29/2020 04/30/2020 Hematuria 02/29/2020 03/05/2020 Acute deep vein thrombosis (DVT) 02/29/2020 11/20/2020 S/P coronary angioplasty 11/03/2016 Chest pain 09/15/2016 03/05/2020 Elevated prostate specific antigen (PSA) 10/06/2010 03/05/2020 Hip arthritis 10/06/2010 03/05/2020 Colon polyp 07/15/2010 PATRICE (acute kidney injury) Obstructive uropathy 020 Encounters Date Type Department Care Team Description 11/25/2023 11:00 AM CDT Home Care Visit [address] [address] Raffy Carter, PT PT - INITIAL ASSESSMENT 11/23/2023 8:00 AM CDT Home Care Visit [address] [address] Brittanie Prieto, JAMEL SN - HOME VISIT 11/21/2023 3:30 PM CDT Home Care Visit [address] [address] Rigo Heart RN SN - OASIS RESUMPTION OF CARE 11/18/2023 Home Care Visit [address] [address] Rufina Cosby RN CARE COORDINATION 11/14/2023 11:30 AM CDT Home Care Visit [address] [address] Brittanie Prieto, JAMEL SN - MISSED VISIT 11/14/2023 Home Care Visit [address] [address] Raffy Carter, PT PT - OASIS TRANSFER 11/11/2023 10:30 AM CDT Home Care Visit [address] [address] Raffy Carter, PT PT - HOME VISIT 11/09/2023 9:00 AM CDT Home Care Visit [address] [address] Barbara Fuentes RN SN - HOME VISIT 11/07/2023 Home Care Visit [address] [address] Rufina Cosby, JAMEL CARE COORDINATION 11/04/2023 10:30 AM CDT Home Care Visit [address] [address] Raffy Carter, PT PT - HOME VISIT 10/31/2023 11:00 AM CDT Home Care Visit [address] [address] Doreen Hussein, JAMEL SN - HOME VISIT 10/31/2023 2:30 AM CDT Home Care Visit [address] [address] Liz Fang [employer] PAINTER BARREL PLATER - MISSED VISIT 10/28/2023 10:30 AM CDT Home Care Visit [address] [address] Raffy Carter, PT PT - HOME VISIT 10/25/2023 11:30 AM CDT Home Care Visit [address] [address] Raffy Carter, PT PT - REASSESSMENT 10/24/2023 11:00 AM CDT Home Care Visit [address] [address] Doreen Hussein RN SN - HOME VISIT 10/24/2023 10:00 AM CDT Home Care Visit [address] [address] Liz Fang LICSW BARREL PLATER - HOME VISIT 10/21/2023 12:00 PM CDT Home Care Visit [address] [address] Raffy Carter, PT PT - HOME VISIT 10/20/2023 10:35 AM CDT Office Visit [address] [address] Cesar Mccollum MD Follow Up; Concerns (Discuss protocol for hyperbaric treatment at hospital) 10/20/2023 Travel 10/19/2023 9:45 AM CDT Home Care Visit [address] [address] Rigo Heart RN SN - HOME VISIT 10/18/2023 Home Care Visit [address] [address] Milli Torre, RN CARE COORDINATION 10/17/2023 3:00 PM CDT Home Care Visit [address] [address] Raffy Carter, PT PT - HOME VISIT 10/17/2023 10:00 AM CDT Home Care Visit [address] [address] Liz Fang, [employer] BARREL PLATER - INITIAL ASSESSMENT 10/14/2023 Home Care Visit [address] [address] Raffy Carter, PT PT - MISSED VISIT 10/12/2023 Telephone [facility] [address] [place] [address] Cesar Mccollum MD Questions 10/11/2023 7:15 AM CDT Home Care Visit [address] [address] Manav Montero, RN SN - WOUND/OSTOMY CHART CONSULT 10/10/2023 4:00 PM CDT Home Care Visit [address] [address] Deonna Oliveira, MANAGER PATIENT PT - HOME VISIT 10/10/2023 10:30 AM CDT Home Care Visit [address] [address] Milli Torre RN SN - HOME VISIT 10/08/2023 9:00 AM CDT Home Care Visit [address] [address] Justyna Hernandez RN SN - INITIAL ASSESSMENT 10/08/2023 Telephone [facility] [address] [place] [address] Cesar Mccollum MD Home Care (BP med parameters) 10/07/2023 11:30 AM CDT Home Care Visit [address] [address] Raffy Carter, PT PT - HOME VISIT 10/07/2023 Home Care Visit [address] [address] Milli Torre, JAMEL CARE COORDINATION 10/06/2023 1:00 PM CDT Ancillary Procedure [facility] [address] [place] [address] 10/06/2023 Travel 10/04/2023 1:00 PM CDT Office Visit [facility] [address] [place] [address] Souleymane Miller MD Follow Up (Annual Follow up /Coronary artery disease) 10/04/2023 10:15 AM CDT Home Care Visit [address] [address] Manav Rodríguez, PT PT - OASIS START OF CARE 10/04/2023 Telephone [facility] [address] [place] [phone] Manav Rodríguez, PT Home Care 10/04/2023 Orders Only [facility] [address] [place] [address] Souleymane Miller MD 1 scan: (1-Ord) NFLD-EKG-10/04/23 10/04/2023 Travel 10/04/2023 Plan of Care Documentation [address] [address] 10/03/2023 Telephone [facility] [address] [place] [address] Cesar Mccollum MD Questions 10/02/2023 Home Care Visit [address] [address] Saul Lawson, RN CARE COORDINATION 10/01/2023 Home Care Visit [address] [address] Saul Lawson, RN CARE COORDINATION 09/29/2023 1:40 PM CDT Office Visit [facility] [address] [place] [address] Cesar Mccollum MD Hospital F/U (Beckham, urinary problem); Concerns (Bed sore - would like checked) 09/29/2023 Travel 09/23/2023 Telephone [facility] [address] [place] [address] Cesar Mccollum MD Results 09/22/2023 10:30 AM CDT Orders Only [facility] [address] [place] [address] Lab, [place] [facility] 09/22/2023 9:50 AM CDT Nurse/Clinic Staff Only [address] [address] Dressing Change 09/22/2023 Telephone [facility] [address] [place] [address] Cesar Mccollum MD Results 09/22/2023 Travel 09/21/2023 3:20 PM CDT Nurse/Clinic Staff Only [facility] [address] [place] [address] Procedure (UA collection from jon and neph tube) 09/21/2023 Telephone [facility] [address] [place] [address] Letty Mera MD 09/20/2023 2:15 PM CDT Ancillary Procedure [address] [address] 09/20/2023 1:00 PM CDT Office Visit [facility] [address] [place] [address] Letty Mera MD [facility] F/U (Admission Date: 09/09/2023 Discharge Date: 09/15/23); Wound Check (sacrum & neph tube site. ); Home Care; Concerns (Feels like catheter is falling out - pt states that it is leaking. ) 09/20/2023 Travel 09/15/2023 Transcribe Orders [address] [address] Provider, Non-Excellian 09/13/2023 Telephone [facility] [address] [place] [address] Cesar Mccollum MD Procedure (oncology social worker) 08/31/2023 Transcribe Orders [facility] [address] [place] [address] Senthil Alvarez MD 08/30/2023 Orders Only [facility] Scanner 1 scan: (1-Ord) [facility], 08/30/2023 from Last 3 Months Immunizations Name Administration Dates Next Due COVID-19 Vaccine Spikevax (M oderna 50mcg/0.5mL) 12YO+ [id number] Formula PF 07/21/2023,03/08/2023 COVID-19 vaccine (Pfizer-Bio NTech [...] Sign Reading Time Taken Comments Blood Pressure 112/60 11/25/2023 11:27 AM CDT Pulse 66 11/25/2023 11:25 AM CDT Temperature 36.6 ??C (97.9 ??F) 11/25/2023 11:25 AM C DT Respiratory Rate 15 11/25/2023 11:25 AM CDT Oxygen Saturation 98% 11/25/2023 11:25 AM CDT Inhaled Oxygen Concentration - - Weight 81.2 kg (179 lb) 11/21/2023 4:04 PM CDT Height 177.1 cm (5' 9.72) 07/21/2023 9:05 AM CD T Body Mass Index 25.89 07/21/2023 9:05 AM CDT Plan of Treatment Upcoming Encounters Date Type Department Care Team (Late st Contact Info) Description 11/28/2023 10:30 AM CDT Appointment [facility] [address] [place], [place] [phone] Doreen Hussein RN [address] [place], [place] [phone] 11/30/2023 10:30 AM CDT Office Visit [facility] [address] [place] [address] Cesar Mccollum MD [address] [place] [address] 12/02/2023 11:00 AM CDT Home Care Visit [facility] [address] [place], [place] [phone] ChaimRaffy banda, PT [address] [place] [address] Health Maintenance Due Date Last Done Comments [...] Completed 4 Medical Devices Implanted Type Area Shelf Stocker Device Identifier Shelf Expiration Date Model / Serial / Lot Stent Uret [id number] Contour - [id number] Implanted:Qty: 1 on 07/18/2023 by Nicola Ware MD at [facility] Right: [employer] [facility] 02/27/2026 [id number] / / [id number] Procedures Procedure Name Priority Date/Time Associated Diagnosis Comments ECHO TTE COMPLETE WO CONTRAST DEBBI 10/06/2023 1:34 PM CDT Coronary artery disease, unspecified vessel or lesion type, unspecified whether angina present, unspecified whether [place] or transplanted heart EKG 12 LEAD Routine 10/04/2023 2:15 PM CDT Coronary artery disease, unspecified vessel or lesion type, unspecified whether angina present, unspecified whether [place] or transplanted heart CO READING EKG - NO CHARGE, COMP ONLY Routine 10/04/2023 2:14 PM CDT Coronary artery disease, unspecified vessel or lesion type, unspecified whether angina present, unspecified whether [place] or transplanted heart CBC WITH AUTO DIFFERENTIAL [...] CDT ECHOCARDIOGRAM SHYAM SANDS ? Accession#: ?? [id number] : ?1940 83 years Study Date: ?? 10/06/2023 12:59:18 PM Gender: M ?BP: ? 131/72 mmHg Height: 175.26 cm ?BSA: ?1.98 m? ? ? Weight: 81.65 kg ? Tech: ? MBF ? Referring MD: SOULEYMANE MILLER Site: ? [facility] Reading Location: [place] [facility] Patient Location: Outpatient. Procedure: 2D, Color [...] . This study was interpreted by an [facility] accredited facility. ??Final ?? Procedure Note Manav Feliciano MD - 10/06/2023 ECHOCARDIOGRAM SHYAM SANDS : 1940 83 years Study Date: 10/06/2023 12:59:18 PM Gender: M BP: 131/72 mmHg Height: 175.26 cm BSA: 1.98 m? ? ? Weight: 81.65 kg Tech: MBF Referring MD: SOULEYMANE MILLER Site: [facility] Reading Location: Mobile OP Patient Location: Outpatient. [...] . This study was interpreted by an [facility] accredited facility. Final Souleymane Miller MD ECHO ORD * EKG 12 LEAD (10/04/2023 2:15 PM CDT) Souleymane Miller MD EKG ORD * CO READING EKG - NO CHARGE, COMP ONLY (10/04/2023 2:14 PM CDT) Souleymane Miller MD PB - PROVIDER READ INGS * (ABNORMAL) CBC WITH AUTO DIFFERENTIAL (09/22/2023 10:39 AM CDT) Only the most recent of2 resultswithin the time period is included. WHITE BLOOD COUNT 11.0 4.5 - 11.0 thou/cu mm 09/22/2023 10:46 AM CDT [facility] RED BLOOD COUNT 2.81(L) 4.30 - 5.90 mil/cu mm 09/22/2023 10:46 AM CDT [facility] HEMOGLOBIN 8.0(L) 13.5 - 17.5 g/dL 09/22/2023 10:46 AM CDT [facility] HEMATOCRIT 25.2(L) 37.0 - 53.0 % 09/22/2023 10:46 AM CDT [facility] MCV 90 80 - 100 fL 09/22/2023 10:46 AM CDT [facility] MCH 28.5 26.0 - 34.0 pg 09/22/2023 10:46 AM CDT [facility] MCHC 31.7(L) 32.0 - 36.0 g/dL 09/22/2023 10:46 AM CDT [facility] RDW 17.5(H) 11.5 - 15.5 % 09/22/2023 10:46 AM CDT [facility] PLATELET COUNT 466(H) 140 - 440 thou/cu mm 09/22/2023 10:46 AM CDT [facility] MPV 8.9 6.5 - 11.0 fL 09/22/2023 10:46 AM CDT [facility] % NEUT 86.3 % 09/22/2023 10:46 AM CDT [facility] % LYMPH 6.6 % 09/22/2023 10:46 AM CDT [facility] % MONO 5.8 % 09/22/2023 10:46 AM CDT [facility] % EOS 1.2 % 09/22/2023 10:46 AM CDT [facility] % BASO 0.1 % 09/22/2023 10:46 AM CDT [facility] ABSOLUTE NEUTROPHILS 9.5(H) 1.7 - 7.0 thou/cu mm 09/22/2023 10:46 AM CDT [facility] ABSOLUTE LYMPHOCYTES 0.7(L) 0.9 - 2.9 thou/cu mm 09/22/2023 10:46 AM CDT [facility] ABSOLUTE MONOCYTES 0.6 <0.9 thou/cu mm 09/22/2023 10:46 AM CDT [facility] ABSOLUTE EOSINOPHILS 0.1 <0.5 thou/cu mm 09/22/2023 10:46 AM CDT [facility] ABSOLUTE BASOPHILS 0.0 <0.3 thou/cu mm 09/22/2023 10:46 AM T [facility] Blood BLOOD SPECIMEN / Unknown Venipuncture / Unknown 09/22/2023 10:39 AM CDT 09/22/2023 10:43 AM CDT Letty Mera MD HEMATOLOGY [facility] [address] [place] [address], * (ABNORMAL) URINE CULTURE (09/21/2023 4:40 PM CDT) Only the most recent of2 resultswithin the time period is included. CULTURE RESULT(A) 09/24/2023 9:54 AM CDT [facility] CULTURE >100,000 CFU/mL Shirin albicans 09/24/2023 9:54 AM CDT [facility] Urine URINE SPECIMEN / Unknown Non-Blood / Unknown 09/21/2023 4:40 PM CDT 09/21/2023 4:41 PM CDT Letty Mera MD [facility] 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
--- OUTSIDE RECORDS SUMMARY | 2023-11-28 08:24 | XMS_ITS | Encounter Summary ---
Author Organization [facility] Address [address] [place] [address] Care Team Providers Care Primer Boxer Name Role Phone Elsewhere, Pcp Primary Care Provider Unavailabl e Encounter Details Date Type Department Care Team (Latest Contact Info) Description 08/13/2023 3:42 PM CDT - 08/26/2023 4:11 PM CDT Hospital Encounter [facility], [facility], Sixth Floor [address] [place] [address] Darnell Garcia M.D. [address] [place] [phone] Boubacar Brock M.D. [address] [place] [phone] Decline Functional Status [R53.81] (Primary Dx); Hematuria [...] AM CDT DISCHARGE SUMMARY BRIEF OVERVIEW Hospital: [facility] Discharge Provider: Boubacar Brock M.D. Primary Team: [facility] Urology Surgery - Chief Helga - Bob [...] M.D.Wen, Lexiaochuan, M.D.Premo, Hayley, M.D.Botkin, Hannah, M.D. [facility] ROMB OR DISCHARGE DISPOSITION Home or Self Care [1] ACTIVE ISSUES REQUIRING FOLLOW UP OUTPATIENT FOLLOW UP Scheduled Appointments 08/26/2023 1:00 PM KESHIA VERAS [facility] Radiology For appointment details refer to [...] he felt completely obstructed and presented to [place] [facility]. [place] Course Attempted Tabares insertion but bladder irrigation was unsuccessful on multiple attempts. Hung 1U pRBC's. Given some volume and transferred to [facility] ICU ICU Course Urology consulted and [...] CONSULT TO NUTRITION SUPPORT IP CONSULT TO CHIEF UNDERWRITER WOUND CARE CONDITION AT DISCHARGE stable Discharge [...] he felt completely obstructed and presented to [place] ED. [place] Course Attempted Tabares insertion but bladder irrigation was unsuccessful on multiple attempts. Hung 1U pRBC's. Given some volume and transferred to [facility] ICU ICU Course Urology consulted and [...] after catheter removal. 10 capsule 08/26/2023 09/05/2023 clopidogreL (PLAVIX) 75 mg tablet Take 75 mg by mouth every morning. 12/27/2019 11/17/2023 documented as of this encounter Progress Notes * Emeterio Buchanan P.T., D.P.T., [facility] - 08/26/2023 4:27 PM CDT 08/26/23 9049 Reason Therapy Missed Reason Therapy Missed Receiving other care Attempted to see patient twice today. On 1st attempt patient was receiving blood transfusion and RNwas working on completing cares with him. On 2nd attempt patient was with another provider. * Chary Diamond M.A., O.T., [facility] - 08/26/2023 10:21 AM CDT Occupational Therapy [facility] Hospital Inpatient Treatment SUBJECTIVE Patient's Name: Kalen Vega Referring/Attending Provider: Boubacar Brock M.D. Reason for Referral: Occupational Therapy Evaluation and Treatment History of Present Illness: Kalen Vega is a 83 y.o. male who was admitted to [facility] in [place] on 08/13/2023 for Hematuria [R31.9]. Precautions Other Precautions: Abdominal, fall precautions, monitor tachycardia and hypertension Pain Assessment: Pain not reported during session. Subjective Comments: Agreeable to therapy session. Team Communication: The patient's status was discussed and coordination of care occurred with RN, Family/Caregiver, nurse tech Family/Caregiver Present: son and [id number] OBJECTIVE Vital Signs: Vitals not formally assessed during session. No concerns during chart review and the patient had nosigns or symptoms consistent with vital changes during therapy session. Outcome Measures: [facility] Inpatient Short Form: Putting on and taking [...] at or below 17 Clinicians answer the [facility] Inpatient Short Form based on observed patient [...] through pant leg first. - Adaptive Equipment: Mix Crusher Operator TOILETING - Assist Level: Maximal Assist [...] (Edge of bed) - Assist Level: Modified Jay - Equipment: bed rail - Therapist Delivery: assessed, instructed, assisted - Adaptive Equipment: leg melter supervisor oxygen furnace trialed ; however, patient able to move [...] extremity (stiff knee) first. Recommended adaptive equipment: Mix Crusher Operator. Toileting - Patient instructed on accurate [...] maximal exertion Handouts provided: Bathroom Safety Equipment [id number], Techniques to Help You Save Energy [id number] Patient was left in bedside chair with [...] health care OBJECTIVE Patient is admitted in [place] 6C -room 121 ASSESSMENT / PLAN CONICAL MIXERmanager of international met with patient and son Kar to inform them of home health care acceptance for PT/OT. Patient's son Kar and [id number] will provide transportation at the time of discharge. PLAN Patient to discharge home with home health care. Home Medical Care - Admitted Since 08/13/2023 Service Provider Selected Services Address Phone Fax Patient Preferred [facility] [address] [facility] [phone] -- Ingot Header: Ghazal NURSING: - Complete documentation in the Discharge Navigator including Nursing Report Info and Facility/NextLevel of Care Info - Call report and arrange for the patient's first visit - Send After Visit Summary and required packet of dismissal information with patient, including advance directive. PRIMARY SERVICE: - Please provide a non-[place] home health order for: physical therapy and [...] be provided by family--patient's son Kar and [id number]. 3. rough carpenter recommended reaching out to family, friends, and neighbors for assistance. 4. rough carpenter provided information regarding the dismissal process. Damaris [...] Reviewed with patient #1 Hematuria Please page [facility] ([phone]) or [facility] ([phone]) Nutrition Support Service pager with questions. * Emeterio Buchanan P.T., Craig.P.T., [facility] - 08/25/2023 9:35 AM CDT Physical Therapy Inpatient Treatment SUBJECTIVE Patient's Name: Kalen Vega Referring/Attending Provider: Boubacar Brock M.D. Reason for Referral: Physical Therapy Evaluate and Treat History of Present Illness: Kalen Vega is a 83 y.o. male who was admitted to [facility] in [place] on 08/13/2023 for Hematuria [R31.9] Precautions Other [...] throughout session; within normal ranges. Outcome Measures: AM-[facility] Inpatient Short Form: AM-PAC Basic Mobility [...] at or below 17 Clinicians answer the -[facility] Inpatient Short Form based on observed patient activity and/or clinical judgement (ie. patient can be scored without physically performing each activity) Therapeutic Interventions: SIT TO STAND x3: Assistance Level: Supervision static safe house fit with adult there which they usually [place] with a difference educated fully know who [...] - 08/25/2023 9:18 AM CDT Occupational Therapy [facility] Hospital Inpatient Treatment SUBJECTIVE Patient's Name: Kalen Vega Referring/Attending Provider: Boubacar Brock M.D. Reason for Referral: Occupational Therapy Evaluation and Treatment History of Present Illness: Kalen Vega is a 83 y.o. male who was admitted to [facility] in [place] on 08/13/2023 for Hematuria [R31.9]. Precautions Other Precautions: Abdominal, fall precautions, monitor tachycardia and hypertension Pain Assessment: Pain not reported during session. Subjective Comments: Agreeable to therapy session. Team Communication: The patient's status was discussed and coordination of care occurred with RN, PT OBJECTIVE Vital Signs: Vitals monitored throughout session; within normal ranges. Outcome Measures: [facility] Inpatient Short Form: Putting on and taking [...] at or below 17 Clinicians answer the [facility] Inpatient Short Form based on observed patient [...] including figure four technique. Recommended adaptive equipment: Mix Crusher Operator and Sock Aid. Toileting - Patient [...] and modification tools as needed including leg melter supervisor oxygen furnace and/or bed adjustments. Bathroom DME: - Educated [...] in place draining clear yellow urine I/O ([id number]): Fifty-five cc serosanguineous from the drain 1 [...] have him follow up with his local pulverizer feeder Comorbidities: --history of DVT status post [...] discussed with Dr. Venegas, chief urology resident alteration hand. Pager during business hours: [phone] Pager after hours: [phone] * Emeterio Buchanan P.T., D.P.T., [facility] - 08/24/2023 10:46 AM CDT Physical Therapy Inpatient Treatment SUBJECTIVE Patient's Name: Kalen Vega Referring/Attending Provider: Boubacar Brock M.D. Reason for Referral: Physical Therapy Evaluate and Treat History of Present Illness: Kalen Vega is a 83 y.o. male who was admitted to [facility] in [place] on 08/13/2023 for Hematuria [R31.9] Precautions Other [...] %, and O2flow: Room air Outcome Measures: [facility] Inpatient Short Form: AM-PAC Basic Mobility [...] at or below 17 Clinicians answer the [facility] Inpatient Short Form based on observed patient [...] baseline. PT Goal #2: Patient will perform brk-hw-gfldf transfer with modified independence and least restrictive [...] Total Kcal/day: 1370 based on 84 % Garcia-[place] Non-standard additives: K 80 mEq Phos 30 [...] magnesium, phosphorus tomorrow. #1 Hematuria Please page [facility] ([phone]) or [facility] ([phone]) Nutrition Support Service pager with questions. * [...] catheter in place draining light smith I/O ([id number]): Forty-two cc serosanguineous from the drain 2.2 [...] have him follow up with his local pulverizer feeder Comorbidities: --history of DVT status post [...] discussed with Dr. Venegas, chief urology resident alteration hand. Pager during business hours: [phone] Pager after hours: [phone] * Deanne Mike L.G.S.W., M.S.W. - 08/23/2023 11:25 AM CDT SUBJECTIVE Social Work spoke with [facility]. They cannot provide longterm at this [...] [facility] (out of service area) [facility] ASSESSMENT / PLAN ASSESSMENT Patient has robust family support including a son living with him. PLAN Patient desires home health care through [facility]. Social Work will continue to follow to provide support. Social Work will continue to assist with discharge needs. Shorty Sun, M.S.W. 08/23/23 * Jazmine Benítez R.N., C.W.C.N. - 08/23/2023 11:10 AM CDT [facility] Wound RN consulted to assess Kalen Vega [...] stent and hematuria who is transferred from [place] ED with 3 days of hematuria and [...] None Unable to Measure Y *Wound Bed Closed;[place];Red Tissue Exposed None Odor None *Exudate Amount [...] 30 minutes > 30 minutes Ongoing management Nursing;Wound/canned food reconditioning inspector Partial head to toe skin assessment completed [...] was admitted to [facility] in [place] on 08/13/2023 for Hematuria [R31.9] Precautions Other [...] and O2 flow: Room air Outcome Measures: [facility] Inpatient Short Form: [facility] Basic Mobility (V.2) How much help from [...] 3-5 steps with a railing?: A Lot [facility] Basic Mobility (V.2) Raw Score: 17 [facility] Basic Mobility (V.2) Standardized Score: 39.67 Interpretation: Based on scoring guidelines using the raw score value: Those going to home had an average score at or above 18 Those going to facility had an average score at or below 17 Clinicians answer the [facility] Inpatient Short Form based on observed patient [...] baseline. PT Goal #2: Patient will perform kjy-jm-msddn transfer with modified independence and least restrictive [...] D.P.T., GCS * Demarco Salazar, Pharm.D., R.Ph., [facility] - 08/23/2023 10:19 AM CDT [...] Total Kcal/day: 1370 based on 84 % Garcia-[place] Non-standard additives: MAX chloride Thiamine 100 mg [...] magnesium, phosphorus tomorrow. #1 Hematuria Please page [facility] ([phone]) or [facility] ([phone]) Nutrition Support Service pager with questions. * Ivy Hernandez O.T. - 08/23/2023 8:30 AM CDT Occupational Therapy [facility] Hospital Inpatient Treatment SUBJECTIVE Patient's Name: Kalen Vega Referring/Attending Provider: Boubacar Brock M.D. Reason for Referral: Occupational Therapy Evaluation and Treatment History of Present Illness: Kalen Vega is a 83 y.o. male who was admitted to [facility] in [place] on 08/13/2023 for Hematuria [R31.9]. Precautions Other Precautions: Abdominal, fall precautions, monitor tachycardia and hypertension Pain Assessment: Pain not reported during session. Subjective Comments: Agreeable to therapy session. Team Communication: The patient's status was discussed and coordination of care occurred with RN, PT OBJECTIVE Vital Signs: Vitals monitored throughout session; within normal ranges. 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 [facility] Summary: Diet: NPO, TPN [...] discussed with Dr. Venegas, chief urology resident alteration hand. Pager during business hours: [phone] Pager after hours: [phone] * Chary Diamond M.A., O.T., BCP - [...] OBJECTIVE Patient is anticipated to remain at [place] for 3-5 days. Referrals sent: [facility] ASSESSMENT / PLAN ASSESSMENT Patient has robust family support including a son living with him. PLAN Patient desires home health care through [facility]. Social Work will continue to follow [...] was admitted to [facility] in [place] on 08/13/2023 for Hematuria [R31.9] Precautions Other [...] 3-5 steps with a railing?: A Lot [facility] Basic Mobility (V.2) Raw Score: 17 [facility] Basic Mobility (V.2) Standardized Score: 39.67 Interpretation: Based on scoring guidelines using the raw score value: Those going to home had an average score at or above 18 Those going to facility had an average score at or below 17 Clinicians answer the [facility] Inpatient Short Form based on observed patient [...] baseline. PT Goal #2: Patient will perform tki-xi-qmflu transfer with modified independence and least restrictive [...] Total Kcal/day: 1370 based on 84 % Garcia-[place] Non-standard additives: MAX chloride Thiamine 100 mg [...] place draining light smith colored urine I/O ([id number]): CBI on slow drip 75 cc serosanguineous [...] have him follow up with his local pulverizer feeder Comorbidities: --history of DVT status post [...] discussed with Dr. Venegas, chief urology resident alteration hand. Pager during business hours: [phone] Pager after hours: [phone] * Qamar Jim, Pharm.DJonah, R.Ph. - 08/21/2023 [...] place draining clear smith colored urine I/O ([id number]): 1800 cc urine output 75 cc serosanguineous [...] have him follow up with his local pulverizer feeder Comorbidities: --history of DVT status post [...] discussed with Dr. Venegas, chief urology resident alteration hand. Pager during business hours: [phone] Pager after hours: [phone] * Lizette Harvey M.D. - 08/20/2023 8:08 [...] draining clear thin merlot colored urine I/O ([id number]): 240 cc p.o. intake 760 cc urine [...] have him follow up with his local pulverizer feeder Comorbidities: --history of DVT status post [...] questions or concerns. Pager during business hours: [phone] Pager after hours: [phone] * Qamar Jim, PharmJonahDJonah, R.Ph. - 08/20/2023 [...] R.Ph. * Lisa Seaman N, O.T., [facility] - 08/19/2023 2:26 PM CDT Occupational Therapy Acute Hospital Inpatient Treatment SUBJECTIVE Patient's Name: Kalen Vega Referring/Attending Provider: Boubacar Brock M.D. Reason for Referral: Occupational Therapy Evaluation and Treatment History of Present Illness: Kalen Vega is a 83 y.o. male who was admitted to [facility] in [place] on 08/13/2023 for Hematuria [R31.9]. Precautions Other Precautions: Abdominal, fall precautions, monitor tachycardia and hypertension Pain Assessment: Pain not reported during session. Subjective Comments: Patient greeted in chair and agreeable to therapy session. Team Communication: The patient's status was discussed and coordination of care occurred with RN OBJECTIVE Vital Signs: Vitals monitored throughout session; within normal ranges. Outcome Measures: [facility] Inpatient Short Form: Putting on and taking [...] at or below 17 Clinicians answer the [facility] Inpatient Short Form based on observed patient [...] about patient's nutritional care please contact pager [phone] on weekdays or [phone] on weekends/holidays. NUTRITION ASSESSMENT: Mr. Vega is [...] care everywhere) ESTIMATED NEEDS: Total Calorie Needs: 8004-4121 calories/day Method to Estimate Energy Needs: kcal/kg [...] was admitted to [facility] in [place] on 08/13/2023 for Hematuria [R31.9] Precautions Other [...] mmHg O2: 96% Room air Outcome Measures: -[facility] Inpatient Short Form: -[facility] Basic Mobility (V.2) How much help [...] -PAC Basic Mobility (V.2) Raw Score: 18 -[facility] Basic Mobility (V.2) Standardized Score: 41.05 Interpretation: Based on scoring guidelines using the raw score value: Those going to home had an average score at or above 18 Those going to facility had an average score at or below 17 Clinicians answer the -[facility] Inpatient Short Form based on observed [...] Ongoing PT Goal #2: Patient will perform soj-sp-mqzjo transfer with modified independence and least restrictive [...] in place draining clear pink urine I/O ([id number]): 370 p.o. intake 1 L urine output [...] have him follow up with his local pulverizer feeder Comorbidities: --history of DVT status post [...] questions or concerns. Pager during business hours: [phone] Pager after hours: [phone] * Lisa Seaman, OCarlos, [facility] - 08/18/2023 11:15 AM CDT Occupational Therapy [facility] Inpatient Treatment SUBJECTIVE Patient's Name: Kalen Vega Referring/Attending Provider: Boubacar Brock M.D. Reason for Referral: Occupational Therapy Evaluation and Treatment History of Present Illness: Kalen Vega is a 83 y.o. male who was admitted to [facility] in [place] on 08/13/2023 for Hematuria [R31.9]. Precautions Other [...] at or below 17 Clinicians answer the -[facility] Inpatient Short Form based on observed [...] doffing over it last. Recommended adaptive equipment: Mix Crusher Operator and Sock Aid. Patient was left in bedside chair, with nursing/SHIP BOSS at end of session with call light [...] was admitted to [facility] in [place] on 08/13/2023 for Hematuria [R31.9] Precautions Other [...] 3-5 steps with a railing?: A Little [facility] Basic Mobility (V.2) Raw Score: 18 [facility] Basic Mobility (V.2) Standardized Score: 41.05 Interpretation: Based on scoring guidelines using the raw score value: Those going to home had an average score at or above 18 Those going to facility had an average score at or below 17 Clinicians answer the [facility] Inpatient Short Form based on observed patient [...] following coordination of care occurred with the measurement technician/Caregiver Present: No Patient was left in bedside [...] Progressing PT Goal #2: Patient will perform wwd-sy-opuwh transfer with modified independence and least restrictive [...] in place draining clear pink urine I/O ([id number]): 1.2 L p.o. intake 1 L urine [...] diet later today follow up vascular medicine [facility] Summary: Diet: currently limited clears Activity: Ad kong DVT PPX: heparin drip GI PPX: Pantoprazole Bowel Regimen:N/A IVF: none Abx/Microbiology: Ceftriaxone Pain Control: Tylenol, oxycodone 08/18. Scheduled trospium Home Meds Resumed: Metoprolol, tamsulosin, rosuvastatin Held Home Meds: None Consults: None Paula Hernandez M.D. 08/18/2023 6:02 AM CDT Please page the Urology Chief Service with questions or concerns. Pager during business hours: [phone] Pager after hours: [phone] * Tayler Greenwood M.D., M.Ed. - 08/17/2023 [...] same. Next aPTT level: 08/16 at 2300 Pedor Ruelas Pharm.D., R.Ph., BCPS * Paula Hernandez [...] the patient follow up with his primary pulverizer feeder at discharge we will which we [...] Lactated Ringer's * Lisa Seaman, O.T., [facility] - 08/17/2023 10:47 AM CDT Occupational Therapy [facility] Inpatient Treatment SUBJECTIVE Patient's Name: Kalen Vega Referring/Attending Provider: Boubacar Brock M.D. Reason for Referral: Occupational Therapy Evaluation and Treatment History of Present Illness: Kalen Vega is a 83 y.o. male who was admitted to [facility] in [place] on 08/13/2023 for Hematuria [R31.9]. Precautions Other [...] at or below 17 Clinicians answer the [facility] Inpatient Short Form based on observed patient [...] in place draining clear pink urine I/O ([id number]): NG tube 200 cc Two hundred sixty-five [...] held since 08/11) -[facility]/antiplatelet. Theyfelt he no [...] questions or concerns. Pager during business hours: [phone] Pager after hours: [phone] * Audi De Luna P.T., D.P.T. - 08/16/2023 3:05 PM CDT 08/16/23 1505 Reason Therapy Missed Reason Therapy Missed Receiving other care Patient receiving blood products during morning attempt, with another provider in PM. Will re-attempt tomorrow or as able. Audi De Luna, PT, DPT * Paual Hernandez M.D. - 08/16/2023 6:02 AM CDT [...] in place draining clear pink urine I/O ([id number]): NG tube 200 cc Two hundred sixty-five [...] with Card[facility]: Diet: NPO Activity: Ad kong DVT PPX: Ashley heparin GI PPX: Pantoprazole Bowel Regimen:N/A IVF: LR 75 Abx/Microbiology: Ceftriaxone Pain Control: Tylenol, oxycodone 08/18. Scheduled trospium Home Meds Resumed: Metoprolol, tamsulosin, rosuvastatin Held Home Meds: None Consults: None Signed by: Paula Hernandez M.D. 08/16/2023 6:02 AM CDT Please page the Urology Chief Service with questions or concerns. Pager during business hours: [phone] Pager after hours: [phone] * Paula Hernandez M.D. - 08/15/2023 9:09 AM CDT PROGRESS NOTE: No events. AFVSS. Pain controlled. No flatus. No further emesis overnight. Abdomen more distended than yesterday but remained soft, tender to deep palpation only, no rebound. Twenty-four Mauritian Alcock three-way catheter remains off CBI, draining [...] above was discussed with Dr. Brock, urology personnel consultant on-call who is in agreement with [...] Family to bring his home enzalutamide from [place] Irvin rFanco Pharm.D., R.Ph. * Jakob De Paz M.D. - 08/14/2023 11:34 AM CDT PROGRESS NOTE: No events. AFVSS. Pain controlled. No flatus. Nauseous and had 2 episodes of emesis. Abdomen more distended than yesterday but remained soft, tender to deep palpation only, no rebound. Twenty-four Mauritian Alcock three-way catheter remains off CBI, draining [...] above was discussed with Dr. Brock, urology personnel consultant on-call who is in agreement with [...] Patient discussed with Dr. Sylvester. Page CCM3 [id number] Carlos Alberto Henson M.D. PGY-1 CCM 3 [...] who have asked we place a 24 Mauritian 3-way urinary catheter pending evaluation. We will [...] CDT CCM3 Admission Note SUBJECTIVE CHIEF COMPLAINT Kaeln Vega is a 83 y.o. male who [...] him to present to local hospital in [place]. OSH Course: His hemoglobin was in the [...] Insecurity: No Food Insecurity (02/16/2022) Received from [facility], [facility] Food Insecurity Worried About Running Out of Food in the Last Year: 1 Transportation Needs: No Transportation Needs (02/16/2022) [facility] Transportation Needs Lack of Transportation (Medical): 1 Housing Stability: Low Risk (02/16/2022) Received from [facility] Housing Stability Unable to Pay for [...] Dr. Sylvester and Dr. Rodriguez. Page CCM3 [id number] Carlos Alberto Henson M.D. PGY-1 CCM 3 [...] As expected PRIMARY PROCEDURALIST FAY Cerna MD [phone] ASSISTANTS none COMPLICATIONS None. DRAINS None. IMPLANTS [...] peripheral vein targets. Ultrasound used for assessment: ClosetDash Fit Provider contacted (include name): Uro Surg [...] 14 -- AST U/L 25 -- Radiology: @[id number]@ Swallow Assessment: No data to display ASSESSMENT / PLAN #1 Hematuria ASSESSMENT Currently we are asked to visit with Mr. Vega for consideration of parenteral nutrition. Nutrition Needs: Height: 180 cm Admission Weight: 91.2 kg (08/13/2023) Current Weight: 90.2 kg BMI (Calculated): 27.8 kg/m?? Total Calorie Needs: 5014-6264 calories/day Method to Estimate Energy Needs: Garcia-[place] ( ) Weight Used for Equation Calculations: [...] on electrolytes Please call NSS pager at [phone] at [facility] or [phone] at [facility] with any additional questions. * Gilbert Johnson M.D. - 08/20/2023 8:05 AM CDTAssociated Order(s): Nutrition support service consult ([facility]) SUBJECTIVE Nutrition support service consult ([facility]) Referring Provider: Lizette Harvey M.D. REASON FOR [...] STENT EXCHANGE; Surgeon: Boubacar Brock M.D.; Location: [facility] ROMB OR FAMILY HISTORY No family history [...] values in this interval not displayed. Radiology: @[id number]@ Swallow Assessment: No data to display ASSESSMENT / PLAN #1 Hematuria ASSESSMENT Currently we are asked to visit with Mr. Vega for consideration of parenteral nutrition. Nutrition Needs: Height: 180 cm Admission Weight: 91.2 kg (08/13/2023) Current Weight: 90.2 kg BMI (Calculated): 27.8 kg/m?? Total Calorie Needs: 3359-1545 calories/day Method to Estimate Energy Needs: kcal/kg [...] on electrolytes Please call NSS pager at [phone] at [facility] or [phone] at [facility] with any additional questions. BILLING/CODING Total [...] stent along with other stents and apparently pulverizer feeder in the past I recommended indefinite [...] 20 mL/hr, intravenous, Continuous, Frieda Garner APRN, LIBRARY MEDIA SPECIALIST, Last Rate: 20 mL/hr at 08/15/23 [...] but he can discuss this with his pulverizer feeder at home. We need to balance [...] was admitted to [facility] in [place] on 08/13/2023 for Hematuria [R31.9]. Relevant Medical History: Kalen Vega is a 83 y.o. 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 Outcome Measures: [facility] Inpatient Short Form: -[facility] Basic Mobility (V.2) How much help [...] 3-5 steps with a railing?: A Lot -[facility] Basic Mobility (V.2) Raw Score: 17 -[facility] Basic Mobility (V.2) Standardized Score: 39.67 Interpretation: Based on scoring guidelines using the raw score value: Those going to home had an average score at or above 18 Those going to facility had an average score at or below 17 Clinicians answer the [facility] Inpatient Short Form based on observed patient [...] following coordination of care occurred with the measurement technician/Caregiver Present: Favio Alfaro Patient was left in [...] was admitted to [facility] in [place] on 08/13/2023 for Hematuria with cystotomy and [...] Min assist for mobility. Required assist for [id number] for force generation and is generally standby [...] Ongoing PT Goal #2: Patient will perform [id number]-nj-[id number] transfer with modified independence and least restrictive [...] - 08/16/2023 10:01 AM CDT Occupational Therapy [facility] Hospital Inpatient Evaluation/Treatment SUBJECTIVE Patient's Name: [...] was admitted to [facility] in [place] on 08/13/2023 for Hematuria [R31.9]. Relevant Medical [...] with RN, PT Family/Caregiver Present: Son and [id number]. Home Living and Equipment: Lives with: Spouse/Significant [...] walker, Single point cane Adaptive Equipment Owned: Mix Crusher Operator, Long Handled Shoe Horn Other DME Owned: Regular flat bed Prior Level of Function and Mobility: Basic Activities of Daily Living: Independent Instrumental Activities of Daily Living: Required Assistance: Jessicaundmelissa son assists with laundry and cooking Functional Mobility: Independent Driving: Yes Occupational Role: Retired Leisure Interests: watch movies, plays [employer] train, meets friends for breakfast. Patient/Caregiver Goals: [...] at or below 17 Clinicians answer the -[facility] Inpatient Short Form based on observed [...] all are a great support. 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 Patient expressed understanding and was agreeable to [...] in conversation with his family when social studies department chair entered the room. He was engaged in [...] locally at approximately 3:00 a.m. a 22 Mauritian three-way catheter was placed and CBI wasinitiated. [...] non-distended, non-peritonitic Extremities: No edema : 22 Mauritian three-way Tabares catheter draining a minimal amount [...] urinary retention Given his non draining 22 Mauritian three-way catheter the Urology techs and I subsequently exchanged this for a 24 Mauritian three-way Alcock in the usual sterile fashion. [...] to follow [place] [phone] with questions or concerns Sixto Cain M.D. [...] peripheral vein targets. Ultrasound used for assessment: ClosetDash Fit Provider contacted (include name): Uro Surg [...] transferred to: [facility] Room: 101 Accompanied by: JAMEL Garcia Report [...] signs? YES * Sixto Teague R.R.T., L.R.TJonah, CREATIVE ART THERAPIST-[facility] - 08/14/2023 7:00 AM CDT [...] the last 24hours. 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 His existing 24 Mauritian three-way Tabares catheter was noted to be [...] additional tissue for additional coverage. A 24 Mauritian three-way catheter was placed with 15 cc in the balloon. This irrigated to light clear pink. A 15 Mauritian YARELI drain wasplaced into the pelvis exiting left lower quadrant. The fascia was closed with interrupted and [id number] 0 PDS. Fat was approximated using 3-0 [...] RN, CPN, CCDS, CCS, CRC Clinical Documentation Shell Sorter Query created by: ELMER Barker, RN, [...] stent and hematuria who is transferred from [place] ED with 3 days of hematuria & [...] RN, CPN, CCDS, CCS, CRC Clinical Documentation Shell Sorter Query created by: ELMER Barker, RN, [...] he felt completely obstructed and presented to [place] ED. [place] Course Attempted Tabares insertion but bladder irrigation was unsuccessful on multiple attempts. Hung 1U pRBC's. Given some volume and transferred to [facility] ICU ICU Course Urology consulted and [...] CDT Procedure visit Department of Urology in [place], [place] [address] [place] [phone] Burke Strauss M.D. [address] [place] [phone] Discharge Disposition: Home or Self Care 12/07/2023 10:30 AM CDT Office Visit Department of Urology in [place], [place] [address] [place] [phone] Burke Strauss M.D. [address] [place] [phone] Discharge Disposition: Home or Self Care Pending [...] 08/26/2023 7:16 AM CDT STRM Testing Location [place] DEFAULT 08/26/2023 6:57 AM CDT STRM Blood (Blood, Venous) 08/26/2023 6:50 AM CDT 08/26/2023 6:57 AM CDT Paula Hernandez M.D. LAB BLOOD BANK TEST ORDERABLES [facility] [address] [place] [address], [facility] [address] [place] [address] * (ABNORMAL) CBC without Differential (08/26/2023 3:20 [...] M.D. LAB BLOOD ADD-ON Performing Organization Address City/[facility] Co de Phone Number [facility] [address] [place], [place] [phone] [place] [address] * Magnesium (08/26/2023 3:20 AM CDT) Magnesium, S 2.1 1.7 - 2.3 mg/dL 08/26/2023 4:04 AM CDT DTL Blood (Blood, Venous) 08/26/2023 3:20 AM CDT 08/26/2023 3:50 AM CDT Boubacar Brock M.D. LAB BLOOD ADD-ON Performing Organization Address [facility] Co de Phone Number [facility] [address] [place], [place] [phone] [place] [address] * (ABNORMAL) Renal Function Panel (08/26/2023 3:20 [...] M.D. LAB BLOOD ADD-ON Performing Organization Address [facility] Co de Phone Number [facility] [address] [place] [address], [facility] [address] [address] * Heparin Anti-Xa Assay (08/26/2023 3:20 AM [...] BLOOD NON ADD -ON Performing Organization Address [facility]/ZIP Co de Phone Number [facility] [address] [place] [address], [facility] DTL [facility] [address] [place] [address] * (ABNORMAL) CBC without Differential (08/25/2023 3:24 [...] BLOOD ADD-ON [facility] [address] [place] [address], [facility] [address] [place] [address] * (ABNORMAL) Renal Function Panel (08/25/2023 3:24 [...] [facility] [address] [place] [address], [facility] [address] [place] [address] * Magnesium (08/25/2023 3:24 AM CDT) Magnesium, S 2.2 1.7 - 2.3 mg/dL 08/25/2023 4:36 AM CDT DTL Blood (Blood, Venous) 08/25/2023 3:24 AM CDT 08/25/2023 4:19 AM CDT Boubacar Brock M.D. LAB BLOOD ADD-ON Performing Organization Address [facility]/ZIP Co de Phone Number [facility] [address] [place], [place] [phone] [address] * Heparin Anti-Xa Assay (08/25/2023 3:24 AM [...] LAB BLOOD NON ADD-ON Performing Organization Address City/[facility]/ZIP Co de Phone Number [facility] [address] [place] [address], [address] [address] * (ABNORMAL) CBC without Differential (08/24/2023 5:28 [...] BLOOD ADD-ON [facility] [address] [place] [address] * Magnesium (08/24/2023 5:28 AM CDT) Magnesium, S 2.3 1.7 - 2.3 mg/dL 08/24/2023 6:19 AM CDT DTL Blood (Blood, Venous) 08/24/2023 5:28 AM CDT 08/24/2023 6:00 AM CDT Boubacar Brock M.D. LAB BLOOD ADD-ON Performing Organization Address City/[facility]/ZIP Co de Phone Number [facility] [address] [facility] [address] [place] [address] * (ABNORMAL) Renal Function Panel (08/24/2023 5:28 [...] Boubacar Brock M.D. LAB BLOOD ADD-ON [facility] [address] [place] [address], [facility] [address] [place] [address] * Heparin Anti-Xa Assay (08/24/2023 5:28 AM [...] LAB BLOOD NON ADD-ON Performing Organization Address City/[facility]/ZIP Co de Phone Number [facility] [address] [place] [address] * (ABNORMAL) Potassium (08/23/2023 9:58 PM CDT) Potassium, S 3.5(L) 3.6 - 5.2 mmol/L 08/23/2023 10:45 PM CDT DT Blood (Blood, Venous) 08/23/2023 9:58 PM CDT 08/23/2023 10:30 PM CDT Boubacar Brock M.D. LAB BLOOD ADD-ON Performing Organization Address City/[facility]/ZIP Co de Phone Number [facility] [address] [place] [address] * (ABNORMAL) Phosphorus Inorganic (08/23/2023 9:58 PM CDT) Phosphorus (Inorganic), S 2.1(L) 2.5 - 4.5 mg/dL 08/23/2023 10:45 PM CDT DT Blood (Blood, Venous) 08/23/2023 9:58 PM CDT 08/23/2023 10:30 PM CDT Paula Hernandez M.D. LAB BLOOD ADD-ON [facility] [address] [place], [place] [phone] [place] [address] * Heparin Anti-Xa Assay (08/23/2023 11:37 AM [...] NON ADD-ON [facility] [address] [place], [place] [phone] [place] [address] * (ABNORMAL) CBC without Differential (08/23/2023 3:42 [...] M.D. LAB BLOOD ADD-ON Performing Organization Address [facility] [place] [place] [address] * Triglycerides (08/23/2023 3:42 AM CDT) Friends [...] M.D. LAB BLOOD ADD-ON Performing Organization Address City/[facility] Co de Phone Number [facility] [address] [place] [address] * Magnesium (08/23/2023 3:42 AM CDT) Magnesium, S 2.2 1.7 - 2.3 mg/dL 08/23/2023 4:50 AM CDT DTL Blood (Blood, Venous) 08/23/2023 3:42 AM CDT 08/23/2023 4:19 AM CDT Boubacar Brock M.D. LAB BLOOD ADD-ON [facility] [address] [place] [address], [facility] [address] [place] [address] * (ABNORMAL) Renal Function Panel (08/23/2023 3:42 [...] M.D. LAB BLOOD ADD-ON Performing Organization Address [facility] Co de Phone Number [facility] [address] [place], [place] [phone] [place] [address] 200 [place] [address] * Heparin Anti-Xa Assay (08/23/2023 3:41 AM CDT) Pathologist [facility] Heparin Anti-Xa, P 0.51 IU/mL 2023 4:26 [...] LAB BLOOD NON ADD-ON Performing Organization Address [facility] Co de Phone Number [facility] [address] [place] [address], [facility] [address] [place] [address] * Glucose, POCT (08/22/2023 11:38 PM CDT) Pathologist [facility] Glucose, POCT, B 117 70 - 140 mg/dL 08/23/2023 1:06 AM CDT PCLX Site Capillary 08/23/2023 1:06 AM CDT PCLX Last Intake NPO 08/23/2023 1:06 AM CDT PCLX Blood 08/22/2023 11:3 8 PM CDT 08/23/2023 1:06 AM CDT Unknown Provider LAB POCT ORDERABLES- MANUAL Performing Organization Address City/[facility]/ZIP Co de Phone Number POC [facility] [address] [place] [address], [facility] PCLX [facility] POC [address] [place] [address] * Heparin Anti-Xa Assay (08/22/2023 10:14 PM [...] LAB BLOOD NON ADD-ON Performing Organization Address City/[facility]/ZIP Co de Phone Number [facility] [address] [place] [address], [facility] DTL [facility] [address] [place] [address] * CT Abdomen Pelvis without IV Contrast [...] Boubacar Brock M.D. LAB BLOOD NON ADD-ON [facility] [address] [place] [address], [facility] DTL [facility] [address] [place] [address] * Creatinine, Body Fluid (08/22/2023 3:30 PM [...] transport rates. All other fluids refer to www.[employer].com for further interpretive information. This test has been modified from the mucker operator's instructions. Its performance characteristics were determined by [facility] in a manner consistent with CLIA requirements. This test has not been cleared or approved by the U.S. Food and Drug Administration. Fluid Type, Creatinine Fluid, Abdomen 08/22/2023 3:52 PM CDT DTL Fluid (Abdomen) 08/22/2023 3 :30 PM CDT 08/22/2023 6:36 PM CDT Corin Ring M.D. LAB BODY FLUIDS AND STOOLS ORDERABLES Performing Organization Address City/State/[facility] Co de Phone Number [facility] [address] [place] [address], [facility] [address] [place] [address] * Transfuse Red Blood Cells : (08/22/2023 [...] of a right IJ vein single-lumen 4 Mauritian tunneled PowerPICC ready for immediate use. NR [...] advanced into the IVC and a 4 Mauritian dilator advanced over the wire and attached to a one-way stopcock. A suitable exit site in the right anterior chest was anesthetized and a small incision made. A 4 Mauritian single-lumen PowerPICC was then tunneled from the [...] Wireadvanced into the IVC and a 4 Mauritian dilator advanced over the wire andattached to a one-way stopcock. A suitable exit site in the right anteriorchest was anesthetized and a small incision made. A 4 Mauritian single-lumen PowerPICC was then tunneled fromthe skin [...] of a right IJ vein single-lumen 4 Mauritian tunneled PowerPICCready for immediate use. NR Kimi Vieira M.D., M.S. IMG IR P ROCEDURES * (ABNORMAL) CBC without Differential (08/22/2023 3:27 AM CDT) Pathologist [facility] Hemoglobin 7.8(L) 13.2 - 16.6 g/dL 08/22/2023 [...] CDT Latisha Whitehead [place] [address], [place] [address] * Type and Screen (with Reflex Antibody ID) (08/22/2023 2:55 AM CDT) Pathologist [facility] ABORh O Pos Not applicable 08/22/2023 3:25 AM CDT STRM Antibody Screen Negative Negative 08/22/2023 3:38 AM CDT STRM Type & Screen Expiration 08/25/2023 23:59 08/22/2023 3:25 AM CDT STRM Testing Location [place] DEFAULT 08/22/2023 3:07 AM CDT STRM Blood (Blood, Venous) 08/22/2023 2:55 AM CDT 08/22/2023 3:07 AM CDT Latisha Whitehead M.D. LAB BLOOD BANK T EST ORDERABLES [facility] [address] [place] [address], [facility] [address] [place] [address] * (ABNORMAL) Comprehensive Metabolic Panel (08/22/2023 2:40 [...] M.D. LAB BLOOD ADD-ON Performing Organization Address [facility]/ZIP Co de Phone Number [facility] [address] [place], [place] [phone] [place] [address] * Heparin Anti-Xa Assay (08/22/2023 2:40 AM [...] BLOOD NON AD D-ON Performing Organization Address [facility]/ZIP Co de Phone Number [facility] [address] [place] [address], [address] [place] [address] * (ABNORMAL) APTT (Activated Partial Thromboplastin Time) (08/22/2023 2:40 AM CDT) [facility] Activated Partial Thrombopl Time, P 64(H) 25 - 37 sec 08/22/2023 3:12 AM CDT [facility] Blood (Blood, Venous) 08/22/2023 2:40 AM CDT 08/22/2023 3:01 AM CDT Latisha Whitehead M.D. LAB BLOOD ADD-ON [facility] [address] [place], [place] [phone] [place] [address] [address] [place] [address] * Triglycerides (08/21/2023 7:32 AM CDT) Friends [...] ADD-O N [facility] [address] [place] [address], [facility] [address] [place] [address] * Phosphorus Inorganic (08/21/2023 7:32 AM CDT) [facility] Phosphorus (Inorganic), S 2.6 2.5 - 4.5 mg/dL 08/21/2023 9:03 AM CDT DTL Blood (Blood, Venous) 08/21/2023 7:32 AM CDT 08/21/2023 8:38 AM CDT Lizette Harvey M.D. LAB BLOOD ADD-O N [facility] [address] [place] [address] * Magnesium (08/21/2023 7:32 AM CDT) Magnesium, S 2.3 1.7 - 2.3 mg/dL 08/21/2023 9:03 AM CDT DTL Blood (Blood, Venous) 08/21/2023 7:32 AM CDT 08/21/2023 8:38 AM CDT Lizette Harvey M.D. LAB BLOOD ADD-O N [facility] [address] [place] [address] * (ABNORMAL) Basic Metabolic Panel (08/21/2023 7:32 [...] ADD-O N [facility] [address] [place] [address], [facility] [address] [place] [address] * (ABNORMAL) CBC without Differential (08/21/2023 7:32 [...] ADD-O N [facility] [address] [place] [address] * Heparin Anti-Xa Assay (08/21/2023 7:32 AM [...] NON ADD-ON [facility] [address] [place], [place] [phone] [place] [address] 200 [place] [address] * (ABNORMAL) APTT (Activated Partial Thromboplastin Time) (08/21/2023 7:32 AM CDT) Activated Partial Thrombopl Time, P 49(H) 25 - 37 sec 08/21/2023 8:31 AM CDT DT Blood (Blood, Venous) 08/21/2023 7:32 AM CDT 08/21/2023 8:06 AM CDT Boubacar Brock M.D. LAB BLOOD ADD-ON Performing Organization Address City/[facility] Co de Phone Number [facility] [address] [place] [address], [place] DTL [facility] [address] [place] [address] * Place peripherally inserted central catheter (PICC) [...] M.D. PROCEDURE/MINOR SURGICAL ORDERABLES Performing Organization Address [facility] Co de Phone Number MMODAL NA * [...] CDT Paula Hernandez M.D. LAB BLOOD ADD-ON [address] [address], [facility] [place] [address] [place] [address] * (ABNORMAL) CBC without Differential (08/20/2023 3:19 [...] BLOOD ADD-ON [facility] [address] [place] [address] * (ABNORMAL) APTT (Activated Partial Thromboplastin Time) (08/20/2023 3:19 AM CDT) Activated Partial Thrombopl Time, P 52(H) 25 - 37 sec 08/20/2023 4:33 AM CDT DTL Blood (Blood, Venous) 08/20/2023 3:19 AM CDT 08/20/2023 4:10 AM CDT Boubacar Brock M.D. LAB BLOOD ADD-ON [facility] [address] [facility] [address] [place] [address] * (ABNORMAL) APTT (Activated Partial Thromboplastin Time) (08/19/2023 10:57 AM CDT) Activated Partial Thrombopl Time, P 54(H) 25 - 37 sec 08/19/2023 11:44 AM CDT DTL Blood (Blood, Venous) 08/19/2023 10:57 AM CDT 08/19/2023 11:26 AM CDT Boubacar Brock M.D. LAB BLOOD ADD-ON [facility] [address] [place] [address] * (ABNORMAL) APTT (Activated Partial Thromboplastin Time) (08/19/2023 4:51 AM CDT) [facility] Activated Partial Thrombopl Time, P 59(H) 25 - 37 sec 08/19/2023 5:53 AM CDT DTL Blood (Blood, Venous) 08/19/2023 4:51 AM CDT 08/19/2023 5:36 AM CDT Boubacar Brock M.D. LAB BLOOD ADD-ON Performing Organization Address City/[facility]/ZIP Co de Phone Number [facility] [address] [place] [address] * (ABNORMAL) APTT (Activated Partial Thromboplastin Time) (08/18/2023 10:03 PM CDT) [facility] Activated Partial Thrombopl Time, P 63(H) 25 - 37 sec 08/18/2023 10:41 PM CDT DT Blood (Blood, Venous) 08/18/2023 10:03 PM CDT 08/18/2023 10:19 PM CDT Boubacar Brock M.D. LAB BLOOD ADD-ON [facility] [address] 200 [place] [address] * (ABNORMAL) APTT (Activated Partial Thromboplastin Time) (08/18/2023 2:50 PM CDT) [facility] Activated Partial Thrombopl Time, P 64(H) 25 - 37 sec 08/18/2023 3:25 PM CDT DTL Blood (Blood, Venous) 08/18/2023 2:50 PM CDT 08/18/2023 3:07 PM CDT Boubacar Brock M.D. LAB BLOOD ADD-ON Performing Organization Address City/[facility]/ZIP Co de Phone Number [facility] [address] [place] [address] * (ABNORMAL) APTT (Activated Partial Thromboplastin Time) (08/18/2023 6:42 AM CDT) [facility] Activated Partial Thrombopl Time, P 61(H) 25 - 37 sec 08/18/2023 7:28 AM CDT DT Blood (Blood, Venous) 08/18/2023 6:42 AM CDT 08/18/2023 7:04 AM CDT Boubacar Brock M.D. LAB BLOOD ADD-ON Performing Organization Address City/[facility]/ZIP Co de Phone Number [facility] [address] [place], [place] [address] [place] [address] [address] [place] [address] * (ABNORMAL) APTT (Activated Partial Thromboplastin Time) (08/17/2023 11:04 PM CDT) [facility] Activated Partial Thrombopl Time, P 40(H) 25 - 37 sec 08/17/2023 11:46 PM CDT DT Blood (Blood, Venous) 08/17/2023 11:04 PM CDT 08/17/2023 11:31 PM CDT Boubacar Brock M.D. LAB BLOOD ADD-ON [facility] [address] [place] [address], [place] D[place] [address] [address] * US Lower Extremity Veins Bilateral (08/17/2023 [...] and management can be found on the [employer] site. Link [email or web address]/topic/clinical-answers/[email or web address]/[email or web address] Findings discussed with ??Tayler Greenwood, ?? ([id number]) on 08/17/2023 7:11 PM. Procedure Note Jj [...] be found on theAskMayoExpert site. [email or web address]/topic/clinical-[email or web address]/[email or web address]/cpm [email or web address] 1725 Findings discussed with Tayler Greenwood MD ([id number]) on 08/17/2023 7:11 PM. IMPRESSION: 1. 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 2. No acute left-sided DVT. Corin Rnig M.D. [facility] US PROCEDURES * APTT (Activated Partial Thromboplastin Time) (08/17/2023 4:56 PM CDT) Activated Partial Thrombopl Time, P 29 25 - 37 sec 08/17/2023 5:10 PM CDT STMA Blood (Blood, Venous) 08/17/2023 4:56 PM CDT 08/17/2023 5:00 PM CDT Paula Hernandez M.D. LAB BLOOD ADD-ON Performing Organization Address [facility] Co de Phone Number [facility] [address] [place] [address], [facility] [address] [place] [address] * ECG 12 Lead (08/16/2023 9:43 PM CDT) Pathologist [facility] Ventricular Rate ECG/Min 134 BPM MUSE PA Interval 136 ms MUSE QRSD Interval 76 ms MUSE QT Interval 298 ms MUSE QTC Interval 445 ms MUSE P [place] 29 degrees MUSE R [place] -6 degrees MUSE T Wave [place] 21 degrees MUSE 08/16/2023 9:43 PM CDT [...] Azar M.D. ECG ORDERABLES Performing Organization Address [facility] Co de Phone Number MUSE NA [...] CDT Geneva Azar M.D. LAB BLOOD ADD-ON [address] [address], [address] [address] * (ABNORMAL) Basic Metabolic Panel (08/16/2023 9:40 PM CDT) Pathologist [facility] Potassium, S 3.9 3.6 - 5.2 [...] [facility] [address] [place] [address], [facility] [address] [place] [address] * Transfuse Red Blood Cells : (08/16/2023 [...] CDT Paula Hernandez M.D. LAB BLOOD ADD-ON [place] [address] [place] [address], [place] [address] * (ABNORMAL) CBC without Differential (08/16/2023 3:10 [...] Paula Hernandez M.D. LAB BLOOD ADD-ON [facility] [address] [place] [address], [facility] DTL [facility] [address] [place] [address] * (ABNORMAL) CBC with Differential, Blood (08/15/2023 [...] ADD-ON [facility] [address] [place] [address], [place] D[place] [facility] [address] [place] [address] [facility] [address] [place] [address] * DX Abdomen 1 View (08/15/2023 1:19 [...] 08/15/2023 12:03 PM CDT Rae Gonzalez APRN, LIBRARY MEDIA SPECIALIST, DNAP LAB BLOO D NON ADD-ON [facility] [address] [place] [address], [facility] [address] [place] [address] * Lactate, B - Intra-op (08/15/2023 11:56 AM CDT) Lactate, B 1.1 0.5 - 2.2 mmol/L 08/15/2023 12:06 PM CDT STMA Blood (Blood, Venous) 08/15/2023 11:56 AM CDT 08/15/2023 12:03 PM CDT Hayde Song M.D. LAB BLOOD NON ADD-O N Performing Organization Address City/[facility]/ZIP Co de Phone Number [facility] [address] [place] [address], [facility] [address] [place] [address] * (ABNORMAL) Glucose, Whole Blood (08/15/2023 11:56 AM CDT) Glucose 144(H) 70 - 140 mg/dL 08/15/2023 12:06 PM CDT STMA Blood (Blood, Arterial Line) 08/15/2023 11:56 AM CDT 08/15/2023 12:03 PM CDT Hayde Song M.D. LAB BLOOD ADD-ON [facility] [address] [place] [address], [facility] [address] [place] [address] * Potassium, Blood (08/15/2023 11:56 AM CDT) Potassium, B 4.3 3.6 - 5.2 mmol/L 08/15/2023 12:07 PM CDT STMA Blood (Blood, Arterial Line) 08/15/2023 11:56 AM CDT 08/15/2023 12:03 PM CDT Hayde Song M.D. LAB BLOOD NON ADD-O N [facility] [address] [place] [address], [facility] [address] [place] [address] * Sodium, B (08/15/2023 11:56 AM CDT) Sodium, B 135 135 - 145 mmol/L 08/15/2023 12:06 PM CDT STMA Blood (Blood, Arterial Line) 08/15/2023 11:56 AM CDT 08/15/2023 12:03 PM CDT Hayde Song M.D. LAB BLOOD NON ADD-O N Performing Organization Address City/[facility]/ZIP Co de Phone Number [facility] [address] [place] [address], [facility] [address] [place] [address] * (ABNORMAL) Calcium, Ionized (08/15/2023 11:56 AM CDT) Calcium, Ionized, B 4.53(L) 4.65 - 5.30 mg/dL 08/15/2023 12:07 PM CDT STMA Blood (Blood, Arterial Line) 08/15/2023 11:56 AM CDT 08/15/2023 12:03 PM CDT Hayde Song M.D. LAB BLOOD NON ADD-O N [facility] [address] [place] [address], [facility] [address] [place] [address] * (ABNORMAL) Blood Gas with Coox, Arterial [...] N [facility] [address] [place] [address], [facility] [address] [place] [address] * FL Fluoro Less Than 1 Hour (08/15/2023 11:22 AM CDT) Narrative 152 HOS LOS RST - 08/15/2023 11:24 AM CDT This exam does not require a radiologist review or interpretation. Please refer to the patient's medical record on this date for clinical details. Boubacar Brock M.D. IMG FLUOROSCOPY PROC EDURES 152 [facility] LOS RST * Patient Status (08/15/2023 10:28 AM CDT) Temperature 36.1 37.0 deg C 08/15/2023 10:28 AM CDT STMA FIO2 0.55 0.21=AIR 08/15/2023 10:28 AM CDT STMA Blood 08/15/2023 10:2 8 AM CDT 08/15/2023 10:28 AM CDT Rae Gonzalez EXTRACTIVE METALLURGIST, LIBRARY MEDIA SPECIALIST, DNAP LAB BLOO D NON ADD-ON Performing Organization Address City/[facility]/ZIP Co de Phone Number [facility] [address] [place] [address] * Lactate, B - Intra-op (08/15/2023 10:28 AM CDT) Pathologist [facility] Lactate, B 1.1 0.5 - 2.2 mmol/L 08/15/2023 10:30 AM CDT STMA Blood (Blood, Venous) 08/15/2023 10:28 AM CDT 08/15/2023 10:28 AM CDT Hayde Song M.D. LAB BLOOD NON ADD-O N Performing Organization Address City/[facility]/ZIP Co de Phone Number [facility] [address] [place] [address] * Glucose, Whole Blood (08/15/2023 10:28 AM CDT) Glucose 134 70 - 140 mg/dL 08/15/2023 10:30 AM CDT STMA Blood (Blood, Arterial Line) 08/15/2023 10:28 AM CDT 08/15/2023 10:28 AM CDT Hayde Song M.D. LAB BLOOD ADD-ON [facility] [address] [place], [place] [address] [place] [address] [address] [place] [address] * Potassium, Blood (08/15/2023 10:28 AM CDT) Potassium, B 4.1 3.6 - 5.2 mmol/L 08/15/2023 10:31 AM CDT STMA Blood (Blood, Arterial Line) 08/15/2023 10:28 AM CDT 08/15/2023 10:28 AM CDT Hayde Song M.D. LAB BLOOD NON ADD-O N [facility] [address] [place], [place] [address] [place] [address] [address] [place] [address] * Sodium, B (08/15/2023 10:28 AM CDT) Sodium, B 135 135 - 145 mmol/L 08/15/2023 10:30 AM CDT STMA Blood (Blood, Arterial Line) 08/15/2023 10:28 AM CDT 08/15/2023 10:28 AM CDT Hayde Song M.D. LAB BLOOD NON ADD-O N [facility] [address] [place] [address], [facility] [address] [place] [address] * (ABNORMAL) Calcium, Ionized (08/15/2023 10:28 AM CDT) Calcium, Ionized, B 4.25(L) 4.65 - 5.30 mg/dL 08/15/2023 10:31 AM CDT STMA Blood (Blood, Arterial Line) 08/15/2023 10:28 AM CDT 08/15/2023 10:28 AM CDT Hayde Song M.D. LAB BLOOD NON ADD-O N [facility] [address] [place] [address], [facility] [address] [place] [address] * (ABNORMAL) Blood Gas with Coox, Arterial [...] ADD-O N [facility] [address] [place] [address], [facility] STMA [facility] [address] [place] [address] * Bacteria / Yomaira Culture, Blood #2 (08/15/2023 3:33 AM CDT) Pathologist [facility] Bacteria/Leyla da Culture, Blood No growth [...] - G ENERAL ORDERABLES Performing Organization Address City/[facility]/ZIP Co de Phone Number [facility] [address] [place] [address], [facility]The[facility] [address] [place] [address] * (ABNORMAL) Basic Metabolic Panel (08/15/2023 3:31 [...] M.D. LAB BLOOD ADD-ON Performing Organization Address City/[facility]/[place] [address] * Bacteria / Yomaira Culture, Blood #1 (08/15/2023 3:31 AM CDT) [facility] Bacteria/Leyla da Culture, Blood No growth after 5 days of incubation. 08/20/2023 6:02 AM CDT DTL Blood (Blood, Peripheral Draw) 08/15/2023 3:31 AM CDT 08/15/2023 5:59 AM CDT Comment:Specimen Source Site : Blood Carlos Alberto Henson M.D. LAB MICROBIOLOGY - G ENERAL ORDERABLES Performing Organization Address City/[facility]/ZIP Co de Phone Number [facility] 200 [place] [address], [place] [address] * (ABNORMAL) CBC with Differential, Blood (08/15/2023 3:30 AM CDT) Pathologist [facility] Hemoglobin 9.5(L) 13.2 - 16.6 g/dL [...] [facility] [address] [place] [address], [place] D[place] [facility] [address] [place] [address] [facility] [address] [place] [address] * (ABNORMAL) CBC with Differential, Blood (08/14/2023 [...] - 6.45 x10(9)/L 08/14/2023 8:14 PM CDT [facility] Lymphocytes 0.30(L) 0.95 - 3.07 x10(9)/L 08/14/2023 [...] [facility] [address] [place] [address], [place] STMA [facility] [address] [place] [address] [facility] [address] [place] [address] * Transfuse Red Blood Cells : , [...] - 6.45 x10(9)/L 08/14/2023 3:23 AM CDT [facility] Lymphocytes 0.36(L) 0.95 - 3.07 [...] ADD-ON [facility] [address] [place] [address], [facility] STMA [facility] [address] [place] [address] [facility] [address] [place] [address] * (ABNORMAL) Basic Metabolic Panel (08/14/2023 3:18 [...] 3:18 AM CDT 08/14/2023 4:32 AM CDT Cralos Alberto Henson M.D. LAB BLOOD ADD-ON [address] [address], [facility] [address] * Type and Screen (with Reflex Antibody ID) (08/13/2023 7:35 PM CDT) Pathologist [facility] ABORh O Pos Not applicable 08/13/2023 7:58 PM CDT STRM Antibody Screen Negative Negative 08/13/2023 8:13 PM CDT STRM Type & Screen Expiration 08/16/2023 23:59 08/13/2023 7:58 PM CDT STRM Testing Location [place] DEFAULT 08/13/2023 7:39 PM CDT STRM Blood (Blood, Venous) 08/13/2023 7:35 PM CDT 08/13/2023 7:39 PM CDT Carlos Alberto Henson M.D. LAB BLOOD BANK TEST ORDERABLES Performing Organization Address [facility]/ZIP Co de Phone Number [address] [address], [facility] [place] [address] * (ABNORMAL) Bacteria / Yomaira Culture, Blood #1 (08/13/2023 7:35 PM CDT) Pathologist [facility] Bacteria/Cand jessica Culture, Blood ESCHERICHIA COLI Growth after 11 Hours (A) 08/16/2023 11:17 AM CDT DTL Comment: 3 of 3 Bottles, Susceptibilities performed on another specimen [id number] Blood (Blood, Peripheral Draw) 08/13/2023 7:35 PM CDT 08/13/2023 8:15 PM CDT Comment:Specimen Source Site : Blood Carlos Alberto Henson M.D. LAB MICROBIOLOGY - G ENERAL ORDERABLES Performing Organization Address City/[facility]/ZIP Co de Phone Number [facility] [address] [place] [address], [facility] DTL [facility] [address] [place] [address] * ECG 12 Lead (08/13/2023 7:02 PM CDT) Ventricular Rate ECG/Min 128 BPM MUSE PA Interval 138 ms MUSE QRSD Interval 64 ms MUSE QT Interval 304 ms MUSE QTC Interval 443 ms MUSE P [place] 45 degrees MUSE R [place] 34 degrees MUSE T Wave [place] 46 degrees MUSE 08/13/2023 7:02 PM CDT 08/13/2023 7:13 PM CDT Impressions MUSE - 08/13/2023 7:13 PM CDT Sinus tachycardia Otherwise normal ECG No previous ECGs available Reviewed by BETTY Walton Narrative Procedure Note Lucas Lee M.D. - 08/13/2023 IMPRESSION: Sinus tachycardia Otherwise normal ECG No previous ECGs available Reviewed by BETTY Walton Toby Wright ECG ORDERABLES Performing Organization Address City/[facility] Co de Phone Number MUSE NA [...] Source Site : Blood Narrative [facility] - 08/16/2023 11:17 AM CDT [...] - G ENERAL ORDERABLES Performing Organization Address City/[facility]/[place] [address] * Magnesium (08/13/2023 5:27 PM CDT) Pathologist [facility] Magnesium, S 1.9 1.7 - 2.3 mg/dL 08/13/2023 6:12 PM CDT DTL Blood (Blood, Venous) 08/13/2023 5:27 PM CDT 08/13/2023 5:58 PM CDT Carlos Alberto Henson M.D. LAB BLOOD ADD-ON Performing Organization Address [facility] [place] [place] [address] * (ABNORMAL) Hepatic Function Panel (08/13/2023 5:27 [...] ADD-ON [facility] [address] [place] [address], [facility] [address] [place] [address] * (ABNORMAL) Basic Metabolic Panel (08/13/2023 5:27 [...] M.D. LAB BLOOD ADD-ON Performing Organization Address City/[facility]/ZIP Co de Phone Number [facility] 200 [place] [address], [facility] 200 [place] [address] * Prothrombin Time (PT) (08/13/2023 5:27 PM CDT) Pathologist [facility] Prothrombin Time, P 12.4 9.4 - [...] M.D. LAB BLOOD ADD-ON Performing Organization Address City/[facility]/ZIP Co de Phone Number [facility] [address] [place] [address], [facility] 200 [place] [address] * (ABNORMAL) CBC with Differential, Blood (08/13/2023 5:27 PM CDT) Pathologist [facility] Hemoglobin 10.0(L) 13.2 - 16.6 g/dL [...] ADD-ON [facility] [address] [place] [address], [facility] STMA [facility] [address] [place] [address] [facility] [address] [place] [address] * (ABNORMAL) Dipstick, Urine (08/13/2023 5:07 PM [...] M.D. LAB URINE ORDERABLES Performing Organization Address [facility] Co de Phone Number [facility] 200 [place] [address], [facility] 200 [place] [address] * Osmolality, Urine (08/13/2023 5:07 PM CDT) Osmolality, U 351 150 - 1150 mOsm/kg 08/13/2023 7:46 PM CDT DTL Urine 08/13/2023 5:07 PM CDT 08/13/2023 5:45 PM CDT Carlos Alberto Henson M.D. LAB URINE ORDERABLES Performing Organization Address City/[facility] Co de Phone Number [facility] [address] [place] [address], [place] [address] * (ABNORMAL) Microscopic Manual (08/13/2023 5:07 PM [...] M.D. LAB URINE ORDERABLES Performing Organization Address City/[facility]/ZIP Co de Phone Number [facility] 200 [place] [address] * pH, Random, Urine (08/13/2023 5:07 PM CDT) pH, Random, U 7.0 4.5 - 8.0 08/13/2023 7:46 PM CDT DT Urine 08/13/2023 5:07 PM CDT 08/13/2023 5:45 PM CDT Carlos Alberto Henson M.D. LAB URINE ORDERABLES Performing Organization Address [facility] Co de Phone Number [facility] [address] [place] [address] * (ABNORMAL) Bacterial Culture, Aerobic + Susceptibility, [...] Alberto Henson M.D. LAB MICROBIOLOGY - [facility] ORDERABLES [facility] [address] [place] [address], [facility] DTL [facility] [address] [place] [address] * (ABNORMAL) Urinalysis, with Microscopic: Urine, Midstream [...] CDT DTL Predicted 24 [place] [address](H) <229 mg/24 h 08/13/2023 8:50 PM CDT DTL Predicted Range [id number] mg/24 h 08/13/2023 8:50 PM CDT DTL Comment Micro done on <2.5 mL 08/13/2023 7:55 PM CDT DTL Urine (Urine, Midstream) 08/13/2023 5:07 PM CDT 08/13/2023 5:44 PM CDT Carlos Alberto Henson M.D. LAB URINE ORDERABLES [facility] [address] [place] [address], [facility] [address] [place] [address] * Interpretation of Outside CT Abdomen and [...] use home supply. 08/17/23: Id'ed by [facility]ISI. [facility] Rx# [id number], filled 07/22/23. HAZARDOUS - Handle with care. Swallow whole. Do NOT crush, chew or open capsule. Given 08/26/2023 9:12 AM CDT 120 mg Given 08/25/2023 9:08 AM CDT 120 mg Given 08/24/2023 9:12 AM CDT 120 mg fat emulsion [id number] & fish oil infusion 50 g (SMOFlipid) [...] Lactated Ringer's 1.5 mL/kg/hr ? 75 kg [place] weight (112.5 mL/hr, rounded to 113 mL/hr), intravenous, Continuous, Starting on Tue08/22/23 at 1030, Conditional Phase Pre-Gastrografin Administration. (Rate = 1.5 mL/kg/hr ideal body weight) Lactated Ringer's 0.75 mL/kg/hr ? 75 kg [place] weight (56.25 mL/hr, rounded to 56.3 mL/hr), [...] use home supply. 08/17/23: Id'ed by [facility]ISI. [facility] Rx# [id number], filled 07/22/23. HAZARDOUS - Handle with care. Swallow whole. Do NOT crush, chew or open capsule. 911 (Given - Provider: Tayler Forrest R.N. - Comment: Pat Murray, -2nd RN) 907 (Given - Provider: Tayler Forrest R.N. - Comment: Pt 's own med from home) 911 (Given - Provider: Lupe Valdez R.N.) fat emulsion gaw-zuc-dpsak & fish oil infusion 50 g (SMOFlipid) [...] Valdez R.N. - Comment: Verified with JAMEL Sharma)115 (Stopped - Provider: Lupe Valdez R.N.) Lactated Ringer's 1.5 mL/kg/hr ? 75 kg [place] weight (112.5 mL/hr, rounded to 113 mL/hr), intravenous, Continuous, Starting on Tue08/22/23 at 1030, Conditional Phase Pre-Gastrografin Administration. (Rate = 1.5 mL/kg/hr ideal body weight) Lactated Ringer's 0.75 mL/kg/hr ? 75 kg [place] weight (56.25 mL/hr, rounded to 56.3 mL/hr), [...] [id number] documented in this encounter Care Teams Primer Boxer Relationship Specialty Start Date End Date Elsewhere, Pcp PCP - General Internal Medicine 08/13/23 documented as of this encounter
--- OUTSIDE RECORDS SUMMARY | 2023-11-28 08:24 | XMS_ITS | Encounter Summary ---
Author Organization [facility] Address [address] [place] [address] Care Team Providers Care [employer] Manager Name Role Phone Elsewhere, Pcp Primary [...] CDT Procedure visit Department of Urology in [place] [address] [place] [address] Burke Strauss M.D. [facility] [place] [address] Discharge Disposition: Home or Self Care 12/07/2023 10:30 AM CDT Office Visit Department of Urology in [place] [address] [place] [address] Burke Strauss M.D. 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
--- OUTSIDE RECORDS SUMMARY | 2023-11-28 08:24 | XMS_ITS | Data Portability ---
Author Organization [facility], [facility] Address [address] [place] [address] Care Team Providers Care Airfreight Loading Supervisor Name Role Phone MASOUD SAUER Primary Care Provider Assessment No assessment recorded. Plan of Treatment Reminders Order Date Submit Date Provider Last Modified By Organization Details Last Modified Time Details Appointments None recorded . Lab urinalys is, dipstick 2023 024 [email or web address] [facility], [address] [place], [address], 4 15:08:54 culture, urine 2023 024 [facility], [address], [place], [address], 4 10:11:11 Referral None recorded . Procedures None recorded . Surgeries cystosco py with ureteral stent exchange (SURG) 2021 022 Not available 16:50:47 cystosco py with ureteral stent exchange (SURG) 2021 022 [email or web address] Not available 15:46:30 Imaging None recorded . Medication Orders Myrbetri q 50 mg tablet,e xtended release 2021 022 APACHE JUNCTION [facility] #[id number], [address] [place], [place], [id number], 2 17:50:02 Bactrim DS 800 mg-160 mg tablet 2023 024 [email or web address] [facility] #[id number], [address] [facility], [place], [place], [id number], 16:19:28 Patient TargetsNo targets recorded. Patient InstructionsNo instructions recorded. Reason for Referral None Reported. Results Created Date Observation Date Name Description Value Unit Range Abnormal Flag LastModifiedBy Organization Detail LastModifiedTime 06/23/1906/23/2023 URINE CULTU RE final report MICROB IOLOGY RESULT S Not Available [facility] [address], [place], [address], 06/25/2023 10:11:11 06/23/19 24 06/23/2023 urina lysis , dipst ick Color-Status Red Not Available [facility] [address], [place], [address], 06/23/2023 15:08:10 06/23/19 24 06/23/2023 urina lysis , dipst ick pH-Status 7.5 Not Available [facility] [address], [place], [address], 06/23/2023 15:08:10 06/23/19 24 06/23/2023 urina lysis , dipst ick Protein-Stat us >=9.0 Not Available [facility] [address], [place], [address], 06/23/2023 15:08:10 06/23/19 24 06/23/2023 urina lysis , dipst ick Nitrates-Sta tus negati ve Not Available [facility] [address], [place], [address], 06/23/2023 15:08:10 06/23/19 24 06/23/2023 urina lysis , dipst ick Blood-Status Large Not Available [facility] [address], [place], [address], 06/23/2023 15:08:10 06/23/19 24 06/23/2023 urina lysis , dipst ick Leuko-Status Negati ve Not Available [facility] [address], [place], [address], 06/23/2023 15:08:10 06/23/19 24 06/23/2023 urina lysis , dipst ick Specimen Type Voided Not Available [facility] [address], [place], [address], 06/23/2023 15:08:10 07/04/19 24 07/01/2023 CT, abdom en + pelvi s, w/o contr ast No observ ation [facility] ed. [email or web address] [address] [facility], [place], [address], 09/01/2023 14:40:29 07/18/19 24 07/18/2023 XR, kidne y + urete r + bladd er No observ ation record ed. [email or web address] [facility] [address], [place], [address], 07/22/2023 15:56:19 Result Notes None recorded. Procedures Surgical History Date Name Laterality Status Provider Name and Address Organization Details Recorded Time Bladder Scan completed Rabia matthews, [facility] 06/23/2023 15:08:00 Cystoscopy completed Nicola Ware MD [address] [place] [address],[address], [place], [address], [facility] 12/30/2021 17:11:17 Colonoscopy completed Nicola Ware MD [address] [place] [address],[address], [place], [address], [facility] 12/30/2021 17:11:22 Imaging Results Imaging Date Name Status LastModified by [email or web address] Details LastModified Time 07/01/2023 CT, abdomen + pelvis, w/o contrast completed [facility] [address], [place], [address], 09/01/2023 14:40:29 07/18/2023 XR, kidney + ureter + bladder completed [facility] [address], [place], [address], 07/22/2023 15:56:19 Procedure Notes None recorded. Medical [...] INSTRUCTI ONS RECEIVED FROM [facility] active Not Available Not Available No t Available furosemide 20 mg tablet TAKE 1 TABLET BY MOUTH DAILY active Not Available Not Available No t Available cefuroxime axetil 500 mg tablet active Not Available Not Available No t Available polyethylen e glycol 3350 17 gram/dose oral powder MIX AND DRINK DIRECTED IN [facility] PY PREP INSTRUCTI ONS RECEIVED FROM [facility] active Not Available Not Available No t [...] Updated DateTime 12/30/2021 177.8 cm 27.4 kg/m2 55897.14 g Nicola Ware MD [address] [place] [address], [address] 12/30/2021 17:10:12 Date Recorded Body height Body mass index (BMI) Body weight Provider Name and Address Organization Details Last Updated DateTime 03/12/2022 177.8 cm 27.4 kg/m2 61452.14 g Rabia Ferrell [facility] 03/12/2022 13:55:47 Social History Question Answer Notes LastModified by Organizat ion Details LastModified Time Tobacco Smoking Status Never Smoker Nicola Ware MD [address] [place] [address], [address], [facility] 12/30/2021 17:11:00 What Is Your [...] Encounter Closed Date Diagnosis/Indication Diagnosis SNOMED-CT Code [id number] Nicola Ware MD [facility] [address] [place] [address] 12/30/2021 16:01:19 01/01/2022 09:36:50 Increased frequency of urination 812925393 Malignant tumor of prostate 488515535 Hydronephrosis [id number] Aliza Landeros [facility] [address] [place] [address] 03/12/2022 13:13:50 03/15/2022 14:00:47 Increased frequency of urination 974418777 Malignant tumor of prostate 619483719 Hydronephrosis [id number] [id number] Nicola Ware MD [facility] [address] [place] [address] 06/23/2023 14:16:52 06/24/2023 08:40:38 Blood in urine [id number] Health Concerns Section Related Observation LastModified by Organization Detai ls LastModified Time None Recorded Concern Status LastModified by Organization Details LastModified Time None Recorded Advance Directives Directive None Recorded Payers Encounter Date Sequence Insurance Name Policy Number Policy Krishnan Covered Member ID Krishnan Member ID Guarantor Name 12/30/2021 1 [employer] (MEDICARE REPLACEMENT/ ADVANTAGE - PPO) [id number] José Miguel D Braucher [id number] José Miguel D Braucher 03/12/2022 1 [employer] (MEDICARE REPLACEMENT/ ADVANTAGE - PPO) [id number] José Miguel D Braucher [id number] José Miguel D Braucher 06/23/2023 1 [employer] (MEDICARE REPLACEMENT/ ADVANTAGE - PPO) [id number] José Miguel D Braucher [id number] José Miguel D Braucher Notes Date Note Type Note Provider Name and Address Organization Details Recorded Time 12/30/2021 text/html HPI Notes: Excer pt from hospital consultation... 81 y.o. year old male who was admitted to [facility] for gross hematuria & CT findings. [...] some of the history. Nicola Ware MD [address] [place] [address],[address], [place], [address], [facility] 12/30/2021 23:07:10 03/12/2022 text/html HPI Notes: Excer pt from hospital consultation... 81 y.o. year old male who was admitted to [facility] for gross hematuria & CT findings. [...] some of the history. Nicola Ware MD [address] [place] [address],[address], [place], [address], [facility] 03/12/2022 17:21:47 06/23/2023 text/html HPI Notes: 83 Y male here after calling triage this AM with hematuria/pain with urination. Patient has stent in place, last exchange 02/08/2022. 06/23/23 visit completed by Curry Ware MD [address] [place] [address],[address], [place], [address], [facility] 06/23/2023 16:19:33
--- OUTSIDE RECORDS SUMMARY | 2023-11-28 08:24 | XMS_ITS | Encounter Summary ---
Author Organization [facility] Address [address] [place] [address] Care Team Providers Care Director Of Accounts Payable Name Role Phone Elsewhere, Pcp Primary Care Provider Unavailabl e Encounter Details Date Type Department Care Team (Late st Contact Info) Description 08/23/2023 12:45 AM CDT Ancillary Procedure Department of Nursing Social History Tobacco Use Types Packs/Day Years Used Date Smoking Tobacco: Never Smokeless Tobacco: Never [facility] Utilities Answer Date Recorded In the past 12 months has e electric, gas, oil, or water [employer] threatened to shut off services in your [...] your living situation today? I have a [facility] place to live 08/13/2023 Sex and Gender Information Value Date Recorded Sex Assigned at Not on file Gender Identity Not on file Sexual Orientation Not on file documented as of this encounter Plan of Treatment Upcoming Encounters Date Type Department Care Team (Latest Contact Info) Description 12/07/2023 10:15 AM CDT Procedure visit Department of Urology in [address] [address] Burke Strauss M.D. [address] [place] [address] Discharge Disposition: Home or Self Care 12/07/2023 10:30 AM CDT Office Visit Department of Urology in [address] [address] Burke Strauss M.D. [address] [place] [address] Discharge Disposition: Home or Self Care documented [...]
--- OUTSIDE RECORDS SUMMARY | 2023-12-21 17:05 | XMS_ITS | Referral Summary ---
Author Organization [facility] Address [address] [place] [address] Care Team Providers Care Steel Barrel Reamer Name Role Phone Cesar Mccollum Primary Care Provider [phone] Allergies No known active allergies Medications Medication [...] on file Medical Devices Implanted Type Area Rn Document Improvement Device Identifier Shelf Expiration Date Model / Serial / Lot Stent Ureteral Polaris Ultra [id number] - [id number] Implanted:Qty : 1 on 02/08/2022 by Nicola Ware MD at [facility] Stent Right: U[employer]ter [employer] [id number] 10/08/2024 [id number] Explanted Type Area Rn Document Improvement Device Identifier Shelf Expiration Date Model / Serial / Lot Stent Came Out Of The Right Ureter Explanted:Qty: 1 on 02/08/2022 by Nicola Ware MD at [facility] Right: Urethra Advance Directives For more information, please contact: [phone] Documents on File Type Date Recorded Patient Drum Sander Offbearer Expl anation Advance Directives and Living Will 02/17/2022 Health Care Directiv e 05/15/2021 Healthcare Agents on File Name Relationship Healthcare Agent Relationship Communication Mindy Waterman Daughter Co-First Alterna te Health Care Agent Meera Vega Spouse Health Care Agent [phone] (Home) Favio Vega Son Co-First Altern ate Health Care Agent Tereso Vega Son Co-First Alterna te Health Care Agent Care Teams Steel Barrel Reamer Relationship Specialty Start Date End Date Cesar Mccollum [address] [place] [address] PCP - General Family Medicine 11/22/22
--- OUTSIDE RECORDS SUMMARY | 2023-12-21 17:05 | XMS_ITS | Clinical Summary ---
Author Organization [place] Address [address] [place] [address] Care Team Providers Care Supervisor Abattoir Name Role Phone Cesar Mccollum Primary Care Provider [phone] Allergies No known active allergies Medications Medication [...] this topic Medical Devices Implanted Type Area Oiler Bander Device Identifier Shelf Expiration Date Model / Serial / Lot Stent Ureteral Polaris Ultra [id number] - [id number] Implanted:Qty : 1 on 02/08/2022 by Nicola Ware MD at [facility] Stent Right: Ureter [employer] [id number] 10/08/2024 [id number] Explanted Type Area Oiler Bander Device Identifier Shelf Expiration Date Model / Serial / Lot Stent Came Out Of The Right Ureter Explanted:Qty: 1 on 02/08/2022 by Nicola Ware MD at [facility] Right: Urethra Advance Directives For more information, please contact: [phone] Documents on File Type Date Recorded Patient Sander Operator Expl anation Advance Directives and Living Will 02/17/2022 Health Care Directiv e 05/15/2021 Healthcare Agents on File Name Relationship Healthcare Agent Relationship Communication Mindy Waterman Daughter Co-First Alterna te Health Care Agent Meera Vega Spouse Health Care Agent [phone] (Home) Favio Vega Son Co-First Altern ate Health Care Agent Tereso Vega Son Co-First Alterna te Health Care Agent Care Teams Supervisor Abattoir Relationship Specialty Start Date End Date Cesar Mccollum [address] [place] [address] PCP - General Family Medicine 11/22/22
--- OUTSIDE RECORDS SUMMARY | 2023-12-21 17:05 | XMS_ITS | Clinical Summary ---
Author Organization [facility] Address [address] [place] [address] Care Team Providers Care Sfdc Technical Architect Name Role Phone Elsewhere, Pcp Primary Care Provider Unavailabl e Source Comments Patient records contain information from all sites at [facility]. For routine questions regarding patient records, call [phone] during business hours, M-F 8:00 AM - 5:00 PM Central Time. Record requests for emergency care only can be directed to [phone] at any time.[facility] Allergies No known active allergies Medications Medication [...] minutes, take the second dose and call [phone] 11/02/2019 Active tamsulosin (FLOMAX) 0.4 mg 24 [...] DO NOT TAKE UNTIL FOLLOW-UP 11/17/2023 Active Additional Information Patient not taking.Reported on 12/07/2023 trospium (SANCTURA) 20 mg tablet Take 1 tablet (20 mg total) by mouth 2 (two) times a day as needed (bladder spasms). 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 Gray, Margaret A, L.P.N. Nurse Visit (Catheter Irrigation ) Discharge Disposition: Home or Self Care 12/08/2023 9:30 AM CDT Office Visit Department of Urology in [place], [place] [address] [place] [address] Burke Strauss M.D. 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 Anemia; Hematuria Gross; Retention Urinary Chronic Discharge Disposition: Home or Self Care 12/07/2023 10:30 AM CDT Office Visit Department of Urology in [address] [phone] Burke Strauss M.D. Hematuria Gross (Primary Dx); Radiation Therapy Cystitis With Hematuria; Anemia; Retention Urinary Chronic Discharge Disposition: Home or Self Care 11/30/2023 6:44 PM CDT - 11/30/2023 8:06 PM CDT Emergency [facility] [address] [place] [phone] Carmen Cherry M.D., M.P.H. Leakage Of Other Urinary Catheter Initial (HCC) (Primary Dx) Discharge Disposition: Home or Self Care 11/15/2023 10:40 AM CDT Ancillary Procedure Department of Wound Ostomy 11/14/2023 11:38 PM CDT - 11/17/2023 3:55 PM CDT Hospital Encounter [facility], Fifth Floor [address] [place] [address] Eliceo Guerrier M.D., Ph.D. Sylvie Álvarez M.B.BJonahS., M.D. Rashawn Vences M.D. Burkland, Carl B, M.D. Hematuria Gross (Primary Dx) Discharge Disposition: Home-Health Care [facility] 11/14/2023 10:44 AM CDT - 11/14/2023 10:23 PM CDT Emergency [facility] [address] [place] [phone] Sergio Raza M.D. Hematuria (Primary Dx); Malfunction Mechanical Urethral Catheter Initial (HCC) Discharge Disposition: Acute Care Hospital 11/14/2023 Documentation Department of Urology in [address] [phone] Sowmya Aviles APRN, C.N.P., M.S.N. 11/14/2023 Intake [facility] 11/10/2023 Clinical Communication Department of Urology in [address] [phone] Burke Strauss M.D. Oncology records request 11/09/2023 11:00 AM CDT Office Visit Department of Urology in [place], [place] [address] [place] [phone] Burke Strauss M.D. Primary Malignant Neoplasm Of Prostate (HCC) (Primary Dx); Retention Urinary Chronic; Hematuria Gross Discharge Disposition: Home or Self Care 11/09/2023 Clinical Communication Department of Urology in [place], [place] [address] [place] [phone] Burke Strauss M.D. 10/27/2023 Clinical Communication Department of Urology in [address] [phone] Burke Strauss M.D. 10/14/2023 1:00 PM CDT Procedure visit Department of Urology in [place], [place] [address] [place] [phone] Paula Hernandez M.D. Reichmann, Lynne G, R.N. Hematuria 10/14/2023 Documentation Department of Urology in [place], [place] [address] [place] [phone] Paula Hernandez M.D. Catheter Care Plan 09/27/2023 Clinical Communication Department of Urology in [place], [place] [address] [place] [phone] Paula Hernandez M.D. 09/21/2023 Clinical Communication Department of Urology in [place], [place] [address] [place] [address] Paula Hernandez M.D. from Last 3 Months Social History Tobacco Use Types Packs/Day Years Used Date Smoking Tobacco: Never Smokeless Tobacco: Never Tobacco Cessation:Counseling Given: Not Answered [facility] Utilities Answer Date Recorded In the past 12 months has e [employer], oil, or [employer] threatened to shut off services in [...] [facility] live 11/15/2023 [...] visit Department of Urology in [place] [address] [place] [address] Burke Strauss M.D. [address] [place] [address] Discharge Disposition: Home or Self Care 01/11/2024 10:00 AM CDT Office Visit Department of Urology in [place] [address] [place] [address] Burke Strauss M.D. [address] [place] [address] Discharge Disposition: Home or Self Care Health [...] Completed 11/14/2023 Medical Devices Implanted Type Area Storage Facility Housekeeper Device Identifier Shelf Expiration Date Model / Serial / Lot Clp Hrzn Ti 6 Clp Lg Orng - [id number] Implanted:Qt y: 1 on 08/15/2023 by Boubacar Brock M.D. at [facility] Hardware e.g. pins/screws /rods [employer] [id number] 02/29/2028 [id number] / / [id number] Clp Hrzn Ti 6 Clp Lg Orng - [id number] Implanted:Qt y: 1 on 08/15/2023 by Boubacar Brock M.D. at [facility] Hardware e.g. pins/screws /rods [employer]dom[employer] [id number] 02/29/2028 [id number] / / [id number] Clp Hrzn Ti 6 Clp Md Monty - [id number] Implanted:Qt y: 1 on 08/15/2023 by Boubacar Brock M.D. at [facility] Hardware e.g. pins/screws /rods [employer]dom[employer] [id number] 03/13/2028 [id number] / / [id number] Clp Hrzn Ti 6 Clp Md Monty - [id number] Implanted:Qt y: 1 on 08/15/2023 by Boubacar Brock M.D. at [facility] Hardware e.g. pins/screws /rods [employer]dom[employer] [id number] 03/21/2028 [id number] / / [id number] Stnt Uret Inl 6fx24 - [id number] Implanted:Qt y: 1 on 08/15/2023 by Jakob De Paz M.D. at [facility] Ureteral Stent N/A: Ureter [employer] [id number] 11/18/2027 [id number] / / [id number] Procedures Procedure Name Priority Date/Time Associated Diagnosis [...] PANEL, S/P STAT 11/14/2023 11:09 AM CDT from Last 3 Months Results * (ABNORMAL) Hemoglobin (12/07/2023 12:25 PM CDT) Only the most recent of2 resultswithin the time period is included. Hemoglobin 9.2(L) 13.2 - 16.6 g/dL 12/07/2023 12:33 PM CDT NPR Blood (Blood, Venous) 12/07/2023 12:25 PM CDT 12/07/2023 12:27 PM CDT Burke Strauss M.D. LAB BLOOD ADD-ON [facility] [address] [place] [address], [facility] NPRG [facility] [address] [place] [address] * Creatinine with Estimated GFR (12/07/2023 12:25 PM CDT) Creatinine 1.13 0.74 - 1.35 mg/dL 12/07/2023 12:49 PM CDT NPRG Estimated GFR (eGFR) 64 >=60 mL/min/BSA 12/07/2023 12:49 PM CDT NPRG Comment: Estimated GFR calculated using the 2020 CKD_EPI creatinine equation. Blood (Blood, Venous) 12/07/2023 12:25 PM CDT 12/07/2023 12:27 PM CDT Burke Strauss M.D. LAB BLOOD ADD-ON [facility] [address] [place] [address], [facility] NPRG [facility] [address] [place] [address] * (ABNORMAL) CBC without Differential (11/17/2023 7:24 [...] D.O. LAB BLOOD ADD-ON Performing Organization Address City/[facility]/ZIP Co de Phone Number [facility] [address] [place] [address], [facility] in [place] [address] [place] [address] * (ABNORMAL) Basic Metabolic Panel (11/17/2023 7:24 AM CDT) Only the most recent of2 resultswithin the time period is included. Pathologist [facility] Potassium, P 4.3 3.6 - 5.2 mmol/L [...] D.O. LAB BLOOD ADD-ON Performing Organization Address City/[facility]/ZIP Co de Phone Number [facility] [place] [address], [address] [address] * Glucose, POCT (11/17/2023 6:45 AM CDT) [facility] Glucose, POCT, B 107 70 - 140 mg/dL 11/17/2023 6:45 AM CDT [facility] Blood 11/17/2023 6:45 AM CDT 11/17/2023 7:03 AM CDT Generic Rals LAB POCT ORDERABLES- MANUAL [facility] [address] [place] [address] * (ABNORMAL) CBC with Differential, Blood (11/16/2023 6:25 AM CDT) Only the most recent of3 resultswithin the time period is included. [facility] Hemoglobin 9.4(L) 13.2 - 16.6 g/dL [...] LAB BLOOD ADD-ON [facility] [address] [place] [address], [facility] MKTO [facility] [address] * (ABNORMAL) Comprehensive Metabolic Panel (11/16/2023 6:25 [...] LAB BLOOD ADD-ON [facility] [address] [place] [address], [facility] MKTO [place] [address] * Transfuse Red Blood Cells : (11/15/2023 6:35 PM CDT) Madelyn Cesar D.O. BLOOD TRANSFUSION OR DERABLES * Testing Location (11/15/2023 11:09 AM CDT) Testing Location [facility] DEFAULT 11/15/2023 11:47 AM CDT [facility] Blood 11/15/2023 11:0 9 AM CDT 11/15/2023 11:47 AM CDT Sergio Raza M.D. LAB BLOOD BANK TEST ORDERABLES [facility] [address] [place] [address], [facility] MKTO [facility] [place] [address] [place] [address] * Coccyx-Wound Ostomy Image Exam (11/15/2023 10:40 [...] RAD IMAGI NG PROCEDURES Performing Organization Address City/[facility]/ZIP Co de Phone Number IIID NA * ECG 12 Lead (11/15/2023 6:47 AM CDT) Ventricular Rate ECG/Min 65 BPM MUSE IN Interval 144 ms MUSE QRSD Interval 76 ms MUSE QT Interval 430 ms MUSE QTC Interval 447 ms MUSE P [place] -7 degrees MUSE R [place] 9 degrees MUSE T Wave [place] 19 degrees MUSE 11/15/2023 6:47 AM CDT [...] by 80 bpm Reviewed by BETTY Powers Gbmalinda Preeti Wright M.D. ECG ORD ERABLES MUSE NA [...] to determine due to color interference Specific [place] SEE COMMENT 1.001 - 1.035 11/15/2023 8:03 AM CDT [facility] Comment:Unable to determine due to color interference Urobilinogen SEE COMMENT 0.2 - 1.0 mg/dL 11/15/2023 8:03 AM CDT [facility] Comment:Unable to determine due to color interference Urine (Urine, Midstream) 11/15/2023 6:25 AM CDT 11/15/2023 6:34 AM CDT Sylvie Wright M.D. LAB URI NE ORDERABLES Performing Organization Address City/[facility] [place] [place] [address] * (ABNORMAL) Microscopic Automated (11/15/2023 6:25 AM [...] 6:34 AM CDT Sylvie Wright M.D. LAB UBALDO NE ORDERABLES Performing Organization Address City/[facility] Co de Phone Number [facility] [address] [place] [address], [address] [address] * Bacterial Culture, Aerobic + Susceptibility, Urine (11/15/2023 6:24 AM CDT) Urine Culture Urogenital microbiota, susceptibilities not performed per laboratory criteria. 11/16/2023 11:36 AM CDT [facility] Urine (Urine, Indwelling Catheter) 11/15/2023 6:24 AM CDT 11/15/2023 9:29 AM CDT Comment:Specimen Source Site : Urine Zachery Tanner APRN, C.N.P., M.S. LAB MICROBIOLOGY - GENERAL ORDERABLES [facility] [address] [place] [address], [facility] MKTO [facility] [place] [address] [place] [address] * CT Abdomen Pelvis without IV Contrast [...] Raza M.D. LAB BLOOD BANK TEST ORDERABLES [facility] [address] [place] [address], [facility] NPRG [facility] [address] [place] [address] * Type and Screen (with Reflex Antibody [...] Raza M.D. LAB BLOOD BANK TEST ORDERABLES [facility] [address] [place] [address], [facility] NPRG [facility] [address] [place] [address] from Last 3 Months Advance Directives For more information, please contact: [phone] * Full Code (Latest Code Status on [...] Answer Comments Full Code: Discussed Care Teams Sfdc Technical Architect Relationship Specialty Start Date End Date Elsewhere, Pcp PCP - General Internal Medicine 08/13/23
--- OUTSIDE RECORDS SUMMARY | 2023-12-21 17:06 | XMS_ITS | Referral Summary ---
Author Organization 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. For routine questions regarding patient records, call [phone] during business hours, M-F 8:00 AM - 5:00 PM Central Time. Record requests for emergency care only can be directed to [phone] at any time[address] Encounters Date Type Department Care Team Description 12/13/2023 9:15 AM CDT Nurse Only Department of Urology in [address] [phone] Burke Strauss M.D. Gray, Margaret A, L.P.N. Nurse Visit (Catheter Irrigation ) Discharge Disposition: Home or Self Care 12/08/2023 9:30 AM CDT Office Visit Department of Urology in [address] [phone] Burke Strauss M.D. 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 Anemia; Hematuria Gross; Retention Urinary Chronic Discharge Disposition: Home or Self Care 12/07/2023 10:30 AM CDT Office Visit Department of Urology in [address] [phone] Burke Strauss M.D. Hematuria Gross (Primary Dx); Radiation Therapy Cystitis With Hematuria; Anemia; Retention Urinary Chronic Discharge Disposition: Home or Self Care 11/30/2023 6:44 PM CDT - 11/30/2023 8:06 PM CDT Emergency [facility] [address] [place] [phone] Carmen Cherry M.D., M.P.H. Leakage Of Other Urinary Catheter Initial (HCC) (Primary Dx) Discharge Disposition: Home or Self Care 11/14/2023 11:38 PM CDT - 11/17/2023 3:55 PM CDT Hospital Encounter [facility] [place] [facility], [facility], Fifth Floor [address] [place] [address] Eliceo Guerrier M.D., Ph.D. Sylvie Álvarez M.B.BJonahSJonah, MRashawn Gauthier M.D. Burkland, Carl B, M.D. Hematuria Gross (Primary Dx) Discharge Disposition: [place]-Health [place] [facility] 11/15/2023 10:40 AM CDT Ancillary Procedure Department of Wound Ostomy 11/14/2023 Documentation Department of Urology in [place] [address] [place] [phone] Sowmya Aviles APRN, C.N.P., M.S.N. 11/14/2023 Intake [facility] 11/14/2023 10:44 AM CDT - 11/14/2023 10:23 PM CDT Emergency [facility] [address] [place] [phone] Sergio Raza M.D. Hematuria (Primary Dx); Malfunction Mechanical Urethral Catheter Initial (HCC) Discharge Disposition: Acute Care Hospital 11/10/2023 Clinical Communication Department of Urology in [place], [place] [address] [place] [phone] Burke Strauss M.D. Oncology records request 11/09/2023 Clinical Communication Department of Urology in [place], [place] [address] [place] [phone] Burke Strauss M.D. 11/09/2023 11:00 AM CDT Office Visit Department of Urology in [place], [place] [address] [place] [phone] Burke Strauss M.D. Primary Malignant Neoplasm Of Prostate (HCC) (Primary Dx); Retention Urinary Chronic; Hematuria Gross Discharge Disposition: Home or Self Care 10/27/2023 Clinical Communication Department of Urology in [place], [place] [address] [place] [address] Burke Strauss M.D. 10/14/2023 Documentation Department of Urology in [place], [place] [address] [place] [phone] Paula Hernandez M.D. Catheter Care Plan 10/14/2023 1:00 PM CDT Procedure visit Department of Urology in [place], [place] [address] [place] [phone] Paula Hernandez M.D. Reichmann, Lynne G, R.N. Hematuria 09/27/2023 Clinical Communication Department of Urology in [place], [place] [address] [place] [phone] Paula Hernandez M.D. 09/21/2023 Clinical Communication Department of Urology in [place], [place] [address] [place] [address] Paula Hernandez M.D. from Last 3 Months Allergies No [...] teral 11/15/2023 Atherosclerotic Heart Diseas e Of [place] Coronary Artery Without Angina Pectoris 11/15/2023 Overview [...] Initial 11/15/2023 Inferior Vena Cava Filter 11/15/2023 Shelter (Current) Anticoagulant Treatment 09/2023 Presence Of Other [...] In the past 12 months has e [employer] gas, oil, or water [employer] threatened to shut off services in your [...] [facility] 11/15/2023 Sex [...] CDT Procedure visit Department of Urology in [address] [phone] Burke Strauss M.D. [address] [place] [phone] Discharge Disposition: Home or Self Care 01/11/2024 10:00 AM CDT Office Visit Department of Urology in [address] [phone] Burke Strauss M.D. [address] [place] [phone] Discharge Disposition: Home or Self Care Medical Devices Implanted Type Area Manager Drug Safety Device Identifier Shelf Expiration Date Model / Serial / Lot Clp Hrzn Ti 6 Clp Lg Orng - [id number] Implanted:Qt y: 1 on 08/15/2023 by Boubacar Brock M.D. at [facility] Hardware e.g. pins/screws /rods [employer] [id number] 02/29/2028 [id number] / / [id number] Clp Hrzn Ti 6 Clp Lg Orng - [id number] Implanted:Qt y: 1 on 08/15/2023 by Boubacar Brock M.D. at [facility] Hardware e.g. pins/screws /rods [employer]dom[employer] [id number] 02/29/2028 [id number] / / [id number] Clp Hrzn Ti 6 Clp Md Monty - [id number] Implanted:Qt y: 1 on 08/15/2023 by Boubacar Brock M.D. at [facility] Hardware e.g. pins/screws /rods [employer]dom[employer] [id number] 03/13/2028 [id number] / / [id number] 1 Clp Hrzn Ti 6 Clp Md Monty - [id number] Implanted:Qt y: 1 on 08/15/2023 by Boubacar Brock M.D. at [facility] Hardware e.g. pins/screws /rods [employer]dom[employer] [id number] 03/21/2028 [id number] / / [id number] 3 Stnt Uret Inl 6fx24 - [id number] Implanted:Qt y: 1 on 08/15/2023 by Jakob De Paz M.D. at [facility] Ureteral Stent N/A: Ureter [employer] [id number] 11/18/2027 [id number] / / [id number] Procedures Procedure Name Priority Date/Time Associated Diagnosis [...] [facility]/ZIP Co de Phone Number [facility] [address] [place] [address], [facility] NPRG [place] [address] [place] [address] * Creatinine with Estimated GFR (12/07/2023 12:25 PM CDT) Pathologist [facility] Creatinine 1.13 0.74 - 1.35 mg/dL 12/07/2023 12:49 PM CDT NPRG Estimated GFR (eGFR) 64 >=60 mL/min/BSA 12/07/2023 12:49 PM CDT NPRG Comment: Estimated GFR calculated using the 2020 CKD_EPI creatinine equation. Blood (Blood, Venous) 12/07/2023 12:25 PM CDT 12/07/2023 12:27 PM CDT Burke Strauss M.D. LAB BLOOD ADD-ON Performing Organization Address City/[facility]/ZIP Co de Phone Number [facility] [address] [place] [address], [facility] NPRG [place] [address] [place] [address] * (ABNORMAL) CBC without Differential (11/17/2023 7:24 [...] CDT Candelaria Rivas D.O. LAB BLOOD ADD-ON [facility] [address] [place] [address], [facility] MKTO [facility] in [address] [address] * (ABNORMAL) Basic Metabolic Panel (11/17/2023 7:24 [...] CDT Candelaria Rivas D.O. LAB BLOOD ADD-ON [facility] [address] [place] [address] * Glucose, POCT (11/17/2023 6:45 AM CDT) Glucose, POCT, B 107 70 - 140 mg/dL 11/17/2023 6:45 AM CDT MKTO Blood 11/17/2023 6:45 AM CDT 11/17/2023 7:03 AM CDT Generic Rals LAB POCT ORDERABLES- MANUAL [facility] [address] [place] [address] * (ABNORMAL) CBC with Differential, Blood (11/16/2023 [...] CDT Rashawn Vences M.D. LAB BLOOD ADD-ON [facility] [address] [place] [address], [facility] MKTO [facility] in [place] [address] [place] [address] * (ABNORMAL) Comprehensive Metabolic Panel (11/16/2023 6:25 [...] [facility]/ZIP Co de Phone Number [facility] [address] [place] [address] * Transfuse Red Blood Cells : (11/15/2023 6:35 PM CDT) Madelyn Cesar D.O. BLOOD TRANSFUSION OR DERABLES * Testing Location (11/15/2023 11:09 AM CDT) Testing Location [facility] DEFAULT 11/15/2023 11:47 AM CDT MK[facility] Blood 11/15/2023 11:0 9 AM CDT 11/15/2023 11:47 AM CDT Sergio Raza M.D. LAB BLOOD BANK TEST ORDERABLES Performing Organization Address City/[facility] Co de Phone Number [facility] [address] [place] [address], [place] [address] * Coccyx-Wound Ostomy Image Exam (11/15/2023 10:40 [...] IMAGI NG PROCEDURES Performing Organization Address [facility] de Phone Number [facility] NA * ECG 12 Lead (11/15/2023 6:47 AM CDT) Pathologist [facility] Ventricular Rate ECG/Min 65 BPM MUSE MA Interval 144 ms MUSE QRSD Interval 76 ms MUSE QT Interval 430 ms MUSE QTC Interval 447 ms MUSE P [place] -7 degrees MUSE R [place] 9 degrees MUSE T Wave [place] 19 degrees MUSE 11/15/2023 6:47 AM CDT [...] M.D. ECG ORD ERABLES Performing Organization Address [facility] Co de Phone Number MUSE [...] to determine due to color interference Specific Martin SEE COMMENT 1.001 - 1.035 11/15/2023 8:03 AM CDT MKTO Comment:Unable to determine due to color interference Urobilinogen SEE COMMENT 0.2 - 1.0 mg/dL 11/15/2023 8:03 AM CDT MKTO Comment:Unable to determine due to color interference Urine (Urine, Midstream) 11/15/2023 6:25 AM CDT 11/15/2023 6:34 AM CDT Sylvie Wright M.D. LAB URI NE ORDERABLES [facility] [address] [place] [address], [facility] [place] [address] * (ABNORMAL) Microscopic Automated (11/15/2023 6:25 AM [...] LAB URI NE ORDERABLES Performing Organization Address City/[facility] Co de Phone Number [facility] [address] [place] [address] * Bacterial Culture, Aerobic + Susceptibility, Urine (11/15/2023 6:24 AM CDT) Urine Culture Urogenital microbiota, susceptibilities not performed per laboratory criteria. 11/16/2023 11:36 AM CDT MKTO Urine (Urine, Indwelling Catheter) 11/15/2023 6:24 AM CDT 11/15/2023 9:29 AM CDT Comment:Specimen Source Site : Urine Zachery Tanner APRN C.N.P., M.S. LAB MICROBIOLOGY - GENERAL ORDERABLES Performing Organization Address City/[facility]/ZIP Co de Phone Number [facility] [address] [place] [address] * CT Abdomen Pelvis without IV Contrast [...] M.D. LAB BLOOD BANK TEST ORDERABLES [facility] [address] [place] [address], [facility] NPRG [facility] [address] [place] [address] * Type and Screen (with Reflex Antibody [...] Raza M.D. LAB BLOOD BANK TEST ORDERABLES [facility] [address] [place] [address], [place] NPRG [facility] [address] [place] [address] from Last 3 Months Advance Directives For more information, please contact: [phone] * Full Code (Latest Code Status on [...] Answer Comments Full Code: Discussed Care Teams Can Reforming Machine Operator Relationship Specialty Start Date End Date Elsewhere, Pcp PCP - General Internal Medicine 08/13/23
--- OUTSIDE RECORDS SUMMARY | 2023-12-21 17:06 | XMS_ITS | Encounter Summary ---
Author Organization [facility] Address [address] [place] [address] Care Team Providers Care Aligner Typewriter Name Role Phone Elsewhere, Pcp Primary Care Provider Unavailabl e Reason for Referral * Outpatient (Routine) - Authorized Specialty Diagnoses / Procedures Referred By Contac t Referred To Contact Diagnoses Hematuria Gabe Neal M.D. [address] [place] [address] Referral ID Status Reason Start Date Expiration Date V isits Requested Visits Authorized [id number] Authorized 11/17/2023 05/18/2025 1 1 Encounter Details Date Type Department Care Team (Late st Contact Info) Description 11/14/2023 11:38 PM CDT - 11/17/2023 3:55 PM CDT Hospital Encounter [facility], Fifth Floor [address] [place] [address] Eliceo Guerrier M.D., Ph.D. [address] [place] [address] Sylvie Álvarez M.B.B.S., M.D. [address] [place] [address] Rashawn Vences M.D. [address] [place] [address] Gabe Buckley M.D. [address] [place] [address] Smith Peter (Primary Dx) Discharge Disposition: Home-Health Care Svc Social History Tobacco Use Types Packs/Day Years Used Date Smoking Tobacco: Never Smokeless Tobacco: Never [facility] Utilities Answer Date Recorded In the past 12 months has [facility] [employer], gas, oil, or water [employer] threatened to shut off services in your [...] [facility] place to live 11/15/2023 Sex [...] SUMMARY BRIEF OVERVIEW Discharge Hospital: Hospital: [facility] [place] Discharge Provider: Gabe Buckley M.D. Primary Care Providers: Dr. 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 Cesar Mccollum to discuss restarting OUTPATIENT FOLLOW UP Scheduled Appointments 12/07/2023 10:15 AM [facility] MULTI SPECIALTY NURSE 01 NPNC; URO [...] filter and chronic pressure wounds presented to [facility] 11/14/23 gross hematuria including around his indwelling [...] plan of care was discussed with Dr. Gaeb Rivas DO. PGY-1 [facility] Family Medicine Residency [place] Associated attestation - Gabe Buckley M.D. - [...] 83 y.o. male who was admitted to [facility] 11/14/2023 due to Hematuria Gross [R31.0]. Patient was accompanied by son, Kar. This leader writer finalized arrangements for resumption of home health care services. 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 INTERVENTION This leader writer sent a service reconnection, including resumption of care order, to resumption of home health care services to [facility] as the fax number matches the fax [...] Muscle Mass: Normal Fluid Accumulation: Absent Reduced Lead Technical Writer Strength: Not applicable This is in the [...] 83 y.o. male who was admitted to [facility] 11/14/2023 due to Hematuria Gross [R31.0]. Patient was accompanied by daughter (Mindy) and son (Kar). This leader writer continues to assist in home health care reconnection. 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 INTERVENTION Patient's daughter, Mindy, provided this leader writer with contact information for Doreen Javier, nurse health care manager for [facility]; [phone]. This leader writer left Doreen a voicemail, requesting a [...] bag -monitor CMP for kidney function -continue REVENUE CYCLE CONSULTANT tamsulosin -continue REVENUE CYCLE CONSULTANT enzalutamide -urine culture, per urology # Coronary artery disease without angina pectoris, status post 6 stents # History of DVTs, status post IVC filter # Hyperlipidemia Is on both Plavix and Xarelto at home. -start Xarelto 11/16/2023 so response can be monitored while hospitalized -continue REVENUE CYCLE CONSULTANT amlodipine -continue REVENUE CYCLE CONSULTANT rosuvastatin -continue REVENUE CYCLE CONSULTANT metoprolol # Chronic Pressure Wound, Coccyx -continue wound care -offloading as much as possible Non-severe (moderate) Malnutrition (11/15/23) The patient meets the ASPEN Criteria of malnutrition based on: Energy Intake: Less than 75% of estimated energy requirement for greater than or equal to 1 month Interpretation of Weight Loss: 7.5% 3 months Body Fat: Normal Muscle Mass: Normal Fluid Accumulation: Absent Reduced Lead Technical Writer Strength: Not applicable This is in the [...] Gabe Buckley M.D. Candelaria Rivas DO. PGY-1 [facility] Medicine Res[facility] [place] Associated attestation - Gabe Buckley M.D. - 11/16/2023 6:25 PM CDT I saw and evaluated the patient, participating in the henderson portions of the service. I reviewed the resident/fellow???s note. I agree with the resident/fellow???s findings and plan. 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 [...] recommendations -monitor CMP for kidney function -continue REVENUE CYCLE CONSULTANT tamsulosin -continue REVENUE CYCLE CONSULTANT enzalutamide -urine culture, per urology # Coronary artery disease without angina pectoris, status post 6 stents # History of DVTs, status post IVC filter # Hyperlipidemia Is on both Plavix and Xarelto at home. Urology recommendations on restarting blood thinners. -may consider restarting one or both on 11/16/2023 so response can be monitored while hospitalized -continue REVENUE CYCLE CONSULTANT amlodipine -continue REVENUE CYCLE CONSULTANT rosuvastatin -continue REVENUE CYCLE CONSULTANT metoprolol # Chronic Pressure Wound, Coccyx -continue wound care -offloading as much as possible Non-severe (moderate) Malnutrition (11/15/23) The patient meets the ASPEN Criteria of malnutrition based on: Energy Intake: Less than 75% of estimated energy requirement for greater than or equal to 1 month Interpretation of Weight Loss: 7.5% 3 months Body Fat: Normal Muscle Mass: Normal Fluid Accumulation: Absent Reduced Lead Technical Writer Strength: Not applicable This is in the [...] Rashawn Vences M.D. Candelaria Rivas DO. PGY-1 [facility] Medicine Res[facility] [place] Associated attestation - Rashawn Vences M.D. - [...] other issues. He showed up in the [facility] room yesterday with complaints of a [...] and visits for hematuria. Patient presented at [facility] yesterday because of bleeding around his [place] [...] vomiting, no abdominal pain. Patient presented at [facility] where urology was contacted, manual bladder irrigation [...] anemia, hemoglobin now 8.2. Patient presented to [facility] ED because of bleeding around his [place] catheter. At [facility], patient had manual bladder irrigation with normal [...] CDTAssociated Order(s): Dietitian consult (hospital); Dietitian Consult ([facility]) Dietitian Consult (Hospital) Referring Provider: Bolivar [...] had lost 28lbs during his stay in [place] as he was NPO for12 days then [...] Muscle Mass: Normal Fluid Accumulation: Absent Reduced Lead Technical Writer Strength: Not applicable This is in the [...] 84.1 kg BMI (Calculated): 26.6 kg/m?? % [place] Body Weight: 111 % IBW Adjusted Body [...] assessment, Discharge Planning, Other (comment) Primary Language: Faroese [employer] Used: No Sexuality/Pronoun: / Person(s) present [...] Neoplastic Disease #4 Atherosclerotic Heart Disease Of [place] Coronary Artery Without Angina Pectoris #5 Deficiency Iron #6 Hyperlipidemia #7 Hypertension Essential Primary #8 Front Office Representative Current Use Of Other Agents Affecting Estrogen Receptors And Estrogen Levels #9 Radiation Therapy Proctitis #10 Inferior Vena Cava Filter #11 Front Office Representative (Current) Anticoagulant Treatment Social History Marital Status: [...] Cooperative, Oriented Communication: Talks, Understands speaking, Understands Faroese Shopping: Appropriate to age/development Medication Management: Independent Housekeeping: Appropriate to age/development Meal Prep: Appropriate to age/development Assistive Devices: Eyeglasses, Hearing aid(s) Agency Name: [facility] Services Provided: shelter once weekly for wound care, PT, social work, DarwinRN health care manager Transportation: Support from family Baseline Services/Resources Primary care clinic and provider: ELSEWHERE, PCP Anticipated Needs Functional Status: Tasks appropriate to patient's age/development, Transportation use (drive car, use taxi/bus) Assistive Devices: Eyeglasses, Hearing aid(s) Services/Resources: Home health Agency Name: [facility] Provided: shelter once weekly for wound care, PT, social work, Makenzie health care manager Does the patient need discharge transport arranged?: No Anticipated Discharge Destination: Home-Health Care Svc OBJECTIVE Substance Abuse no symptoms Mental Health Mental Health History: Patient reports no mental health history Patient reports no current concerns Mental Health Treatment History No history of Psychiatric Treatment noted Suicide Risk and Safety Risk Assessment: C-SSRS Short Version: [place] Suicide Severity Rating Scale (Do this one [...] a wound clinic the other day. This leader writer spoke to intake with [facility] however the only information provided is that patient is served by the [facility] location and receives shelter, physical therapy, and social work and the fax number for discharge paperwork was provided. Interventions Psychosocial assessment completed. Provided supportive services. Provided education regarding the role of social work. Plan It is anticipated patient will return home with family and resume services through [facility]. Martha Gardiner 11/15/2023 * Jerri Toledo R.N., [place], [facility] - 11/15/2023 10:54 AM CDTAssociated Order(s): [...] and visits for hematuria. Patient presented at [facility] yesterday because of bleeding around his [place] [...] vomiting, no abdominal pain. Patient presented at [facility] where urology was contacted, manual bladder irrigation with normal saline was performed, and patient was started on CBI. Patient transferred to [place] for further management. WOUND ASSESSMENT: Wound Type: Pressure Injury IP Pressure Injury Staging: Stage 3 Wound Location: Coccyx Wound Orientation: Mid Wound Tunnel/Induration: Length 1 cm, Width 0.5 cm, and Depth 0.3 cm. Wound Bed Tissue: Red and Granulation tissue 100% Leslee-Wound Skin: Blanchable erythema, Maceration, and Lott PLAN: COCCYX: DAILY 1. Cleanse wound with [...] limit sliding down in chair. Please contact [facility] RNs if you have any question or concerns regarding wound care. Jerri Toledo R.N., LYNNE at [phone] Starla Méndez R.N., CWCN at [phone] * Zachery Tanner, ARUN, C.N.P., M.S. - 11/15/2023 8:06 AM CDTAssociated Order(s): Urology consult (hospital) SUBJECTIVE Urology consult (hospital) Referring Provider: Rashawn eVnces M.D. REASON FOR CONSULT Gross hematuria HISTORY [...] follows with Medical Oncology Dr. Tan in [place], [place]. Right hydronephrosis and right atrophic kidney [...] Medical Center. Mr. Vega currently admitted to [facility] in the setting of recurrent [...] in comparison to historical imaging. Ultimately [address] catheter was placed and patient was hand irrigated and initiated on CBI.Patient was transferred to [facility] for ongoing management. Urinalysis 11/15/2023 [...] hematuria. Outpatient appointment scheduled on 12/07/2023 in [place] with Urology. Could consider discussion about catheter removal/formal voiding trial in the outpatient setting as to limit catheter irritation/potential infection risk contributing to hematuria. Significant pyuria on urinalysis in the setting of his gross hematuria would recommend urine culture. 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 Tan in [place], [place]. Per subjective report today undetectable PSA. [...] discussed with Dr. Valdez. Zachery Tanner APRN HYDROELECTRIC MACHINERY MECHANIC Associated attestation - Manav Valdez M.D. - [...] Summary: Pt is a direct admit from [facility] ED. He has chronic indwelling catheter, with prostate cancer history. He noticed urine was bloody red. While being seen in [place], 3 waycatheter was inserted and CBI started. [...] filter and chronic pressure wounds presented to [facility] 11/14/23 gross hematuria including around his indwelling [...] CDT Procedure visit Department of Urology in [address] [phone] Burke Strauss M.D. [address] [place] [phone] Discharge Disposition: Home or Self Care 01/11/2024 10:00 AM CDT Office Visit Department of Urology in [address] [address] Burke Strauss M.D. [address] [place] [phone] Discharge Disposition: Home or Self Care Pending [...] CDT Candelaria Rivas D.O. LAB BLOOD ADD-ON [facility] [address] [place] [address], [facility] [place] [address] * (ABNORMAL) Basic Metabolic Panel (11/17/2023 7:24 [...] CDT Candelaria Rivas D.O. LAB BLOOD ADD-ON [facility] [address] [place] [address] * Glucose, POCT (11/17/2023 6:45 AM CDT) Glucose, POCT, B 107 70 - 140 mg/dL 11/17/2023 6:45 AM CDT MKTO Blood 11/17/2023 6:45 AM CDT 11/17/2023 7:03 AM CDT Generic Rals LAB POCT ORDERABLES- MANUAL Performing Organization Address City/[facility] Co de Phone Number [facility] [address] [place] [phone] * (ABNORMAL) Hemoglobin (11/16/2023 4:43 PM CDT) Hemoglobin 9.2(L) 13.2 - 16.6 g/dL 11/16/2023 5:13 PM CDT MKTO Blood (Blood, Venous) 11/16/2023 4:43 PM CDT 11/16/2023 5:10 PM CDT Madelyn Cesar D.O. LAB BLOOD ADD-ON [facility] [address] [place] [address] * (ABNORMAL) Comprehensive Metabolic Panel (11/16/2023 6:25 [...] CDT Rashawn Vences M.D. LAB BLOOD ADD-ON [facility] [address] [place] [address], [facility] in [place] [address] [place] [address] * (ABNORMAL) CBC with Differential, Blood (11/16/2023 [...] CDT Rashawn Vences M.D. LAB BLOOD ADD-ON [facility] [address] [place] [address], [facility] [place] [address] [place] [address] * Transfuse Red Blood Cells : (11/15/2023 6:35 PM CDT) Madelyn Cesar D.O. BLOOD TRANSFUSION OR DERABLES * Transfuse Red Blood Cells : , 1 Units (11/15/2023 6:35 PM CDT) Madelyn Cesar D.O. BLOOD TRANSFUSION OR DERABLES * (ABNORMAL) Comprehensive Metabolic Panel (11/15/2023 7:31 AM CDT) [facility] Potassium, P 4.2 3.6 - 5.2 mmol/L [...] Sylvie Wright M.D. LAB BLO OD ADD-ON [facility] [address] [place] [address], [facility] [address] * (ABNORMAL) CBC with Differential, Blood (11/15/2023 [...] Sylvie Wright M.D. LAB BLO OD ADD-ON [facility] [address] [place] [address], [facility] [address] * ECG 12 Lead (11/15/2023 6:47 AM CDT) Ventricular Rate ECG/Min 65 BPM MUSE NH Interval 144 ms MUSE QRSD Interval 76 ms MUSE QT Interval 430 ms MUSE QTC Interval 447 ms MUSE P [place] -7 degrees MUSE R [place] 9 degrees MUSE T Wave [place] 19 degrees MUSE 11/15/2023 6:47 AM CDT [...] M.D. ECG ORD ERABLES Performing Organization Address City/[facility]/ZIP Co de Phone Number MUSE [...] LAB URI NE ORDERABLES Performing Organization Address [facility] Co de Phone Number [facility] [address] [place] [phone], [facility] [place] [address] [place] [phone] * (ABNORMAL) Urinalysis with Microscopic if Indicated [...] to determine due to color interference Specific [place] SEE COMMENT 1.001 - 1.035 11/15/2023 8:03 AM CDT MKTO Comment:Unable to determine due to color interference Urobilinogen SEE COMMENT 0.2 - 1.0 mg/dL 11/15/2023 8:03 AM CDT MKTO Comment:Unable to determine due to color interference Urine (Urine, Midstream) 11/15/2023 6:25 AM CDT 11/15/2023 6:34 AM CDT Sylvie Wright M.D. LAB URI NE ORDERABLES Performing Organization Address [facility] Co de Phone Number [facility] [address] [place] [address] * Bacterial Culture, Aerobic + Susceptibility, Urine (11/15/2023 6:24 AM CDT) Urine Culture Urogenital microbiota, susceptibilities not performed per laboratory criteria. 11/16/2023 11:36 AM CDT [facility] Urine (Urine, Indwelling Catheter) 11/15/2023 6:24 AM CDT 11/15/2023 9:29 AM CDT Comment:Specimen Source Site : Urine Zachery Tanner APRN, C.N.P., M.S. LAB MICROBIOLOGY - GENERAL ORDERABLES Performing Organization Address [facility] Co de Phone Number [facility] [address] [place] [address] documented in this encounter Visit Diagnoses Diagnosis Hematuria Gross- Primary Hematuria Gross Primary Malignant Neoplasm Of Prostate (HCC) Anemia In Neoplastic Disease Front Office Representative Current Use Of Other Agents Affecting Estrogen Receptors And Estrogen Levels Hypertension Essential Primary Hyperlipidemia Deficiency Iron Radiation Therapy Proctitis Atherosclerotic Heart Disease Of [place] Coronary Artery Without Angina Pectoris Inferior Vena Cava Filter Front Office Representative (Current) Anticoagulant Treatment documented in this encounter [...] R.N.) documented in this encounter Care Teams Aligner Typewriter Relationship Specialty Start Date End Date Elsewhere, Pcp PCP - General Internal Medicine 08/13/23 documented as of this encounter
--- OUTSIDE RECORDS SUMMARY | 2023-12-21 17:06 | XMS_ITS | Encounter Summary ---
Author Organization [facility] Address [address] [place] [address] Care Team Providers Care Head Piece Assembler Name Role Phone Elsewhere, Pcp Primary Care Provider Unavailabl e Encounter Details Date Type Department Care Team (Late st Contact Info) Description 11/15/2023 10:40 AM CDT Ancillary Procedure Department of Wound Ostomy Social History Tobacco Use Types Packs/Day Years Used Date Smoking Tobacco: Never Smokeless Tobacco: Never [facility] Utilities Answer Date Recorded In the past 12 months has th e electric, gas, oil, or water [employer] threatened to shut off services in your [...] your living situation today? I have a [facility] place to live 11/15/2023 Sex and Gender Information Value Date Recorded Sex Assigned at Not on file Gender Identity Not on file Sexual Orientation Not on file documented as of this encounter Plan of Treatment Upcoming Encounters Date Type Department Care Team (Latest Contact Info) Description 01/11/2024 9:00 AM CDT Procedure visit Department of Urology in [place] [address] [place] [address] Burke Strauss M.D. [address] [place] [phone] Discharge Disposition: Home or Self Care 01/11/2024 10:00 AM CDT Office Visit Department of Urology in [place] [address] [place] [address] Burke Strauss M.D. [address] [place] [phone] Discharge Disposition: Home or Self Care documented [...] filedocumented in this encounter Care Teams Head Piece Assembler Relationship Specialty Start Date End Date Elsewhere, Pcp PCP - General Internal Medicine 08/13/23 documented as of this encounter
--- OUTSIDE RECORDS SUMMARY | 2023-12-21 17:06 | XMS_ITS | Encounter Summary ---
Author Organization [facility] Address [address] [place] [address] Care Team Providers Care Tumbler Drier Operator Name Role Phone Elsewhere, Pcp Primary Care Provider Unavailabl e Encounter Details Date Type Department Care Team (Latest Contact Info) Description 12/07/2023 12:19 PM CDT - 12/07/2023 11:59 PM CDT Hospital Encounter Department of Laboratory Medicine in [place], [place] [address] [place] [address] Burke Strauss M.D. [facility] [place] [phone] Anemia; Hematuria Gross; Retention Urinary Chronic Discharge [...] Procedure visit Department of Urology in [address] [address] Burke Strauss M.D. [address] [place] [address] Discharge Disposition: Home or Self Care 01/11/2024 10:00 AM CDT Office Visit Department of Urology in [place] [address] [place] [address] Burke Strauss M.D. [address] [place] [phone] Discharge Disposition: Home or Self Care documented [...] City/[facility]/ZIP Co de Phone Number [facility] [address] [place] [address], [place] NPRG [place] [address] [place] [address] * (ABNORMAL) Hemoglobin (12/07/2023 12:25 PM CDT) Hemoglobin 9.2(L) 13.2 - 16.6 g/dL 12/07/2023 12:33 PM CDT NPRG Blood (Blood, Venous) 12/07/2023 12:25 PM CDT 12/07/2023 12:27 PM CDT Burke Strauss M.D. LAB BLOOD ADD-ON [facility] [address] [place] [address], [place] [address] [place] [address] documented in this encounter Visit Diagnoses Diagnosis Anemia Hematuria Gross Retention Urinary Chronic documented in this encounter Care Teams Tumbler Drier Operator Relationship Specialty Start Date End Date Elsewhere, Pcp PCP - General Internal Medicine 08/13/23 documented as of this encounter
--- OUTSIDE RECORDS SUMMARY | 2023-12-21 17:06 | XMS_ITS ---
Author Organization [facility] Address [address] [place] [address] Care Team Providers Care Brewery Pumper Name Role Phone Unavailable Unavailable Unavailable Surgery Details Not on file Complications Check Surgery Details section. Procedure Estimated Blood Loss Check Surgery Details section. Procedure Findings Check Surgery Details section. Procedure Specimens Taken Check Surgery Details section.
--- OUTSIDE RECORDS SUMMARY | 2023-12-21 17:06 | XMS_ITS | Encounter Summary ---
Author Organization [facility] Address [address] [place] [address] Care Team Providers Care Sebd Teacher Name Role Phone Elsewhere, Pcp Primary [...] your living situation today? I have a [facility] place to live 11/15/2023 Sex and Gender Information Value Date Recorded Sex Assigned at Not on file Gender Identity Not on file Sexual Orientation Not on file documented as of this encounter Plan of Treatment Upcoming Encounters Date Type Department Care Team (Latest Contact Info) Description 01/11/2024 9:00 AM CDT Procedure visit Department of Urology in [place] [address] [place] [address] Burke Strauss M.D. [address] [place] [phone] Discharge Disposition: Home or Self Care 01/11/2024 10:00 AM CDT Office Visit Department of Urology in [place] [address] [place] [address] Burke Strauss M.D. [address] [place] [phone] Discharge Disposition: Home or Self Care documented as of this encounter Visit Diagnoses Not on filedocumented in this encounter Care Teams Sebd Teacher Relationship Specialty Start Date End Date Elsewhere, Pcp PCP - General Internal Medicine 08/13/23 documented as of this encounter
--- OUTSIDE RECORDS SUMMARY | 2023-12-21 17:06 | XMS_ITS | Encounter Summary ---
Author Organization [facility] Address [address] [place] [address] Care Team Providers Care Hydraulic Engineer Name Role Phone Elsewhere, Pcp Primary Care Provider Unavailabl e Reason for Visit * Reason Comments Urinary Catheter Change Pt reports leaki ng from part of three way catheter, believes he may have nicked it with a scissors. Encounter Details Date Type Department Care Team (Late st Contact Info) Description 11/30/2023 6:44 PM CDT - 11/30/2023 8:06 PM CDT [facility] [address] [place] [phone] Carmen Cherry M.D., M.P.H. [address] [place] [phone] Leakage Of Other Urinary Catheter Initial (HCC) [...] a [facility] place to live 11/15/2023 Sex [...] Everywhere. * Indwelling Urinary Catheter Care Adult [id number] (Zambian) documented in this encounter Medications at Time [...] Procedure visit Department of Urology in [address] [address] Burke Strauss M.D. [address] [place] [phone] Discharge Disposition: Home or Self Care 01/11/2024 10:00 AM CDT Office Visit Department of Urology in [address] [address] Burke Strauss M.D. [address] [place] [phone] Discharge Disposition: Home or Self Care documented [...] (Due) documented in this encounter Care Teams Hydraulic Engineer Relationship Specialty Start Date End Date Elsewhere, Pcp PCP - General Internal Medicine 08/13/23 documented as of this encounter
--- OUTSIDE RECORDS SUMMARY | 2023-12-21 17:06 | XMS_ITS | Encounter Summary ---
Author Organization [facility] Address [address] [place] [address] Care Team Providers Care Skin Tanner Name Role Phone Elsewhere, Pcp Primary Care Provider Unavailabl e Reason for Referral * Outpatient (Routine) - Authorized Specialty Diagnoses / Procedures Referred By Leyla rosenthal Referred To Contact Urology Wili Sosa M.D. [address] [place] [phone] [facility] Referral ID Status Reason Start Date Expiration Date V isits Requested Visits Authorized [id number] Authorized 12/14/2023 06/14/2025 1 1 Reason for Visit * Reason Comments Nurse Visit Catheter Irrigation * Outpatient (Routine) - Closed Specialty Diagnoses / Procedures Referred By Leyla rosenthal Referred To Contact Urology Diagnoses Retention Urinary Chronic Wili Sosa M.D. [address] [place] [phone] [facility] Referral ID Status Reason Start Date Expiration Date Visits Re quested Visits Authorized [id number] Closed 12/08/2023 06/08/2025 1 1 Encounter Details Date Type Department Care Team (Late st Contact Info) Description 12/13/2023 9:15 AM CDT Nurse Only Department of Urology in [place], [place] [address] [place] [phone] Wili Sosa M.D. [address] [place] [phone] Latonia Dumont L.P.N. Nurse Visit (Catheter Irrigation ) Discharge Disposition: Home or Self Care Social History Tobacco Use Types Packs/Day Years Used Date Smoking Tobacco: Never Smokeless Tobacco: Never [facility] [employer] Club[employer] Answer Date Recorded In the past 12 months has e [employer], gas, oil, or water [employer] threatened to shut off services in [...] your living situation today? I have a [facility] place to live 11/15/2023 Sex [...] Procedure visit Department of Urology in [address] [address] Wili Sosa M.D. [address] [place] [phone] Discharge Disposition: Home or Self Care 01/11/2024 10:00 AM CDT Office Visit Department of Urology in [address] [address] Wili Sosa M.D. [address] [place] [phone] Discharge Disposition: Home or Self Care Scheduled Referrals Name Type Priority Associated Diagnoses Orde r Schedule Urology office visit (clinic) General Outpatient Referral Routine Expected: 01/11/2024 (Approximate), Expires: 03/14/2025 documented as of this encounter Visit Diagnoses Diagnosis Retention Urinary Chronic documented in this encounter Care Teams Skin Tanner Relationship Specialty Start Date End Date Elsewhere, Pcp PCP - General Internal Medicine 08/13/23 documented as of this encounter
--- OUTSIDE RECORDS SUMMARY | 2023-12-21 17:06 | XMS_ITS | Encounter Summary ---
Author Organization [facility] Address [address] [place] [address] Care Team Providers Care Ortho Tech Name Role Phone Elsewhere, Pcp Primary Care Provider Unavailabl e Encounter Details Date Type Department Care Team (Late st Contact Info) Description 11/14/2023 Documentation Department of Urology in [place], [place] [address] [place] [address] Sowmya Aviles, ARUN, C.N.P., M.S.N. [address] [place] [phone] Social History Tobacco Use Types Packs/Day Years [...] a [facility] place to live 11/15/2023 Sex and Gender Information Value Date Recorded Sex Assigned at Not on file Gender Identity Not on file Sexual Orientation Not on file documented as of this encounter Progress Notes * Sowmya Aviles, ARUN, C.N.P., M.S.N. - 11/14/2023 3:31 PM CDT Contacted via [facility] regarding this patient. Not personally seen or evaluated as patient is in the [facility] Emergency Department. Kalen Vega is a 83 y.o. male with medical comorbidities of acute DVT on Plavix, coronary artery disease status post stent, degenerative joint disease, hyperlipidemia, lymphedema, prediabetes. 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 Tan in [place], [place]. Right hydronephrosis and right atrophic kidney [...] was readmitted to hospital. He presented to [facility] Emergency Department today for evaluation of hematuria and no drainage into urinary catheter. He reports leakage around the catheter of urine and blood clots. A 22 Welsh three-way catheter was placed, patient was hand [...] Procedure visit Department of Urology in [place], [place] [address] [place] [address] Burke Strauss M.D. [facility] [place] [address] Discharge Disposition: Home or Self Care 01/11/2024 10:00 AM CDT Office Visit Department of Urology in [place] [address] [place] [address] Burke Strauss M.D. [address] [place] [phone] Discharge Disposition: Home or Self Care documented as of this encounter Visit Diagnoses Not on filedocumented in this encounter Care Teams Ortho Tech Relationship Specialty Start Date End Date Elsewhere, Pcp PCP - General Internal Medicine 08/13/23 documented as of this encounter
--- OUTSIDE RECORDS SUMMARY | 2023-12-21 17:06 | XMS_ITS | Encounter Summary ---
Author Organization [facility] Address [address] [place] [address] Care Team Providers Care Rn Endocrinology Name Role Phone Elsewhere, Pcp Primary Care Provider Unavailabl e Reason for Referral * Outpatient (Routine) - Closed Specialty Diagnoses / Procedures Referred By Leyla rosenthal Referred To Contact Burke Lucero M.D. [address] [place] [phone] [facility] Referral ID Status Reason Start Date Expiration Date Visits Re quested Visits Authorized [id number] Closed 12/07/2023 06/07/2025 1 1 Reason for Visit * Reason Comments Follow-up Discuss jon cathet er * Outpatient (Routine) - Closed Specialty Diagnoses / Procedures Referred By Leyla rosenthal Referred To Contact Burke Lucero M.D. [address] [place] [phone] [facility] Referral ID Status Reason Start Date Expiration Date Visits Re quested Visits Authorized [id number] Closed 11/09/2023 05/10/2025 1 1 Encounter Details Date Type Department Care Team (Late st Contact Info) Description 12/07/2023 10:30 AM CDT Office Visit Department of Urology in [place], [place] [address] [place] [phone] Burke Strauss M.D. [address] [place] [phone] Hematuria Gross (Primary Dx); Radiation Therapy Cystitis With Hematuria; Anemia; Retention Urinary Chronic Discharge Disposition: Home or Self Care Social History Tobacco Use Types Packs/Day Years Used Date Smoking Tobacco: Never Smokeless Tobacco: Never [facility] Utilities Answer Date Recorded In the past 12 months has [facility] [employer], gas, oil, or water [employer] threatened to shut off services in your [...] living situation today? I have a [facility] place to live 11/15/2023 Sex and [...] sterile technique anew 22 Fr. (Ref # [id number]) Silicone 3- way catheter placed with assistance [...] was inadvertently cut. He currently has a22 Yoruba silicone three-way catheter. He will return tomorrow [...] CDT Procedure visit Department of Urology in [address] [address] Burke Strauss M.D. [address] [place] [phone] Discharge Disposition: Home or Self Care 01/11/2024 10:00 AM CDT Office Visit Department of Urology in [address] [address] Burke Strauss M.D. [address] [place] [phone] Discharge Disposition: Home or Self Care Scheduled [...] Address City/[facility]/ZIP Co de Phone Number [facility] [address] [place] [address], [facility] NPRG [place] [address] [place] [address] * (ABNORMAL) Hemoglobin (12/07/2023 12:25 PM CDT) Hemoglobin 9.2(L) 13.2 - 16.6 g/dL 12/07/2023 12:33 PM CDT NPRG Blood (Blood, Venous) 12/07/2023 12:25 PM CDT 12/07/2023 12:27 PM CDT Burke Strauss M.D. LAB BLOOD ADD-ON Performing Organization Address City/[facility]/ZIP Co de Phone Number [facility] [address] [place] [address], [place] NPR[place] [address] [place] [address] documented in this encounter Visit Diagnoses Diagnosis Hematuria Gross- Primary Radiation Therapy Cystitis With Hematuria Anemia Retention Urinary Chronic documented in this encounter Care Teams Rn Endocrinology Relationship Specialty Start Date End Date Elsewhere, Pcp PCP - General Internal Medicine 08/13/23 documented as of this encounter
--- OUTSIDE RECORDS SUMMARY | 2023-12-21 17:06 | XMS_ITS ---
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 11/15/2023 Atherosclerotic Heart Diseas e Of [place] Coronary Artery Without Angina Pectoris 11/15/2023 Overview (11/15/2023): stent placements 2017 Complication Procedure Initial 11/15/2023 Deficiency Iron 11/15/2023 Hyperlipidemia 11/15/2023 Hypertension Essential Primary 11/15/2023 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 Current Use Of Oth er Agents Affecting Estrogen Receptors And Estrogen Levels 11/15/2023 Presence Of Other Vascular Implants And Grafts 0 11/15/2023 Other Specified Disorders Of Bladder 11/15/2023 Other Retention Of Urine 11/15/2023 PreDiabetes 11/15/2023 Presence Of Urogenital Implants 11/15/2023 Unspecified Complication Of Genitourinary Prosthetic Device Implant And Graft Initial 11/15/2023 Inferior Vena Cava Filter 11/15/2023 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 (Current) Anticoagulant Treatment 09/2023 Presence Of [...] On Elapsed Days Session Dose Total Dose [id number] 04/28/2020 32 300 cGy 6,000 cGy Lifetime Dose Tracking * Chemical Lifetime Dose Automatic Entry Manual Entr y Radiation 20.4 mGy 20.4 mGy 0 mGy Fluoro Time 2.005 minutes 2.005 minutes 0 minutes DAP (uGy-m2) 479.6 uGy-m2 479.6 uGy-m2 0 uGy-m2 Resolved Problems Problem Noted Date Diagnosed Date Resolved Date Hematuria Gross 08/31/2023 11/17/2023
--- OUTSIDE RECORDS SUMMARY | 2023-12-21 17:06 | XMS_ITS | Encounter Summary ---
Author Organization [facility] Address [address] [place] [address] Care Team Providers Care Solar Sales Manager Name Role Phone Elsewhere, Pcp Primary Care Provider Unavailabl e Reason for Referral * Outpatient (Routine) - Closed Specialty Diagnoses / Procedures Referred By Leyla rosenthal Referred To Contact Urology Diagnoses Retention Urinary Chronic Burke Strauss M.D. [address] [place] [address] [facility] Referral ID Status Reason Start Date Expiration Date Visits Re quested Visits Authorized [id number] Closed 12/08/2023 06/08/2025 1 1 Reason for Visit * Reason Comments Follow-up Irrigation of cathet er * Outpatient (Routine) - Closed Specialty Diagnoses / Procedures Referred By Leyla rosenthal Referred To Contact Urology Burke Strauss M.D. [address] [place] [phone] [facility] Referral ID Status Reason Start Date Expiration Date Visits Re quested Visits Authorized [id number] Closed 12/07/2023 06/07/2025 1 1 Encounter Details Date Type Department Care Team (Latest Contact Info) Description 12/08/2023 9:30 AM CDT Office Visit Department of Urology in [place], [place] [address] [place] [phone] Burke Strauss M.D. [address] [place] [phone] Retention Urinary Chronic (Primary Dx); Anemia; Anemia In Neoplastic Disease; Fdc (Current) Anticoagulant Treatment Discharge Disposition: Home or Self Care Social History Tobacco Use Types Packs/Day Years Used Date Smoking Tobacco: Never Smokeless Tobacco: Never [facility] Utilities Answer Date Recorded In the past 12 months has [facility] [employer], gas, oil, or water [employer] threatened to shut off services in your [...] 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 [employer] (Current) Anticoagulant Treatment Orders Placed This Encounter [...] CDT Procedure visit Department of Urology in [address] [phone] Burke Strauss M.D. [address] [place] [phone] Discharge Disposition: Home or Self Care 01/11/2024 10:00 AM CDT Office Visit Department of Urology in [address] [address] Burke Strauss M.D. 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
--- OUTSIDE RECORDS SUMMARY | 2023-12-21 17:07 | XMS_ITS | Encounter Summary ---
Author Organization [facility] Address [address] [place] [address] Care Team Providers Care Warp Spinner Name Role Phone Elsewhere, Pcp Primary Care Provider Unavailabl e Encounter Details Date Type Department Care Team (Late st Contact Info) Description 10/27/2023 Clinical Communication Department of Urology in [place], [place] [address] [place] [phone] Burke Strauss M.D. [address] [place] [address] Social History Tobacco Use Types Packs/Day Years Used Date Smoking Tobacco: Never Smokeless Tobacco: Never [facility] Utilities Answer Date Recorded In the past 12 months has e electric, gas, oil, or water [employer] threatened to shut off services in your [...] to establish care. * Telephone Encounter - Bruke Strauss M.D. - 10/27/2023 5:01 PM CDT Patient has nephrostomy tubes in and will ultimately need to see a surgeon for exchange, however, Iwould be happy to see him to help establish care. * Telephone Encounter - Tayler Zaragoza C.MParvin - 10/27/2023 2:15 PM CDT Patient follows urology in [place] but would like to transfer his care to [place] as it is closer to home. It looks like for Hematuria. Is this patient ok to see you? He has a catheter in and will need cath changes going forward. documented in this encounter Plan of Treatment Upcoming Encounters Date Type Department Care Team (Latest Contact Info) Description 01/11/2024 9:00 AM CDT Procedure visit Department of Urology in [place] [address] [place] [address] Bukre Strauss M.D. [address] [place] [phone] Discharge Disposition: Home or Self Care 01/11/2024 10:00 AM CDT Office Visit Department of Urology in [address] [address] Burke Strauss M.D. [address] [place] [phone] Discharge Disposition: Home or Self Care documented as of this encounter Visit Diagnoses Not on filedocumented in this encounter Care Teams Warp Spinner Relationship Specialty Start Date End Date Elsewhere, Pcp PCP - General Internal Medicine 08/13/23 documented as of this encounter
--- OUTSIDE RECORDS SUMMARY | 2023-12-21 17:07 | XMS_ITS | Encounter Summary ---
Author Organization [facility] Address [address] [place] [address] Care Team Providers Care Superintendent Transmission Name Role Phone Elsewhere, Pcp Primary Care Provider Unavailabl e Reason for Referral * Outpatient (Routine) - Closed Specialty Diagnoses / Procedures Referred By Leyla t Referred To Contact Urology Burke Strauss M.D. [address] [place] [phone] [facility] Referral ID Status Reason Start Date Expiration Date Visits Re quested Visits Authorized [id number] Closed 11/09/2023 05/10/2025 1 1 * Outpatient (Routine) - Authorized Specialty Diagnoses / Procedures Referred By Contaraceli t Referred To Contact Diagnoses Retention Urinary Chronic Procedures URO Urethral cath change (UCC) Burke Strauss M.D. [address] [place] [phone] [facility] Region Referral ID Status Reason Start Date Expiration Date V isits Requested Visits Authorized [id number] Authorized 11/09/2023 11/08/2024 15 15 Reason for Visit * Reason Comments Consult Discuss catheter thomas nges * Appointment Request (Routine) - Closed Specialty Diagnoses / Procedures Referred By Leyla rosenthal Referred To Contact Urology Referral ID Status Reason Start Date Expiration Date Visits Re quested Visits Authorized [id number] Closed 10/27/2023 10/26/2024 1 1 Encounter Details Date Type Department Care Team (Late st Contact Info) Description 11/09/2023 11:00 AM CDT Office Visit Department of Urology in [place], [place] [address] [place] [phone] Burke Strauss M.D. [address] [place] [phone] Primary Malignant Neoplasm Of Prostate (HCC) (Primary Dx); Retention Urinary Chronic; Hematuria Gross Discharge Disposition: Home or Self Care Social History Tobacco Use Types Packs/Day Years Used Date Smoking Tobacco: Never Smokeless Tobacco: Never [facility] [employer] Answer Date Recorded In the past 12 months has [facility], gas, oil, or water [employer] threatened to shut off services in your [...] ILLNESS Patient presents to establish care from [facility]. He has multiple urologic issues including [...] the past few days. Original plan from [place] was to exchange his left nephrostomy tube in 3 months, due 12/14/2023. He reports getting good output from the left neph tube without hematuria. His radiation cystitis, radiation proctitis and sacral ulcer currently being treated with hyperbaric oxygen therapy through the [facility] in [facility]. He has completed 19 of 45 planned treatments and expects to finish that course in early December. Metastatic prostate cancer is being managed by [facility], Dr. Mireya Tan. Release of [...] an antegrade nephrogram through Interventional Radiology in [place] prior to nephrostomy tube removal. documented in this encounter Plan of Treatment Upcoming Encounters Date Type Department Care Team (Latest Contact Info) Description 01/11/2024 9:00 AM CDT Procedure visit Department of Urology in [address] [phone] Burke Strauss M.D. [address] [place] [phone] Discharge Disposition: Home or Self Care 01/11/2024 10:00 AM CDT Office Visit Department of Urology in [address] [phone] Burke Strauss M.D. [address] [place] [phone] Discharge Disposition: Home or Self Care Scheduled [...] Gross documented in this encounter Care Teams Superintendent Transmission Relationship Specialty Start Date End Date Elsewhere, Pcp PCP - General Internal Medicine 08/13/23 documented as of this encounter
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
--- OUTSIDE RECORDS SUMMARY | 2023-12-21 17:07 | XMS_ITS | Encounter Summary ---
Author Organization [facility] Address [address] [place] [address] Care Team Providers Care Filter Tip Inspector Name Role Phone Elsewhere, Pcp Primary Care Provider Unavailabl e Encounter Details Date Type Department Care Team (Late st Contact Info) Description 09/27/2023 Clinical Communication Department of Urology in [place], [place] [address] [place] [phone] Paula Hernandez M.D. [address] [place] [address] Social History Tobacco Use Types Packs/Day Years Used Date Smoking Tobacco: Never Smokeless Tobacco: Never [facility] Utilities Answer Date Recorded In the past 12 months has [facility] [employer], gas, oil, or water [employer] threatened to shut off services in your [...] [facility] 09/09/2023 Sex and [...] Procedure visit Department of Urology in [address] [phone] Burke Strauss M.D. [address] [place] [phone] Discharge Disposition: Home or Self Care 01/11/2024 10:00 AM CDT Office Visit Department of Urology in [place], [place] [address] [place] [address] Burke Strauss M.D. [address] [place] [phone] Discharge Disposition: Home or Self Care documented as of this encounter Visit Diagnoses Not on filedocumented in this encounter Care Teams Filter Tip Inspector Relationship Specialty Start Date End Date Elsewhere, Pcp PCP - General Internal Medicine 08/13/23 documented as of this encounter
--- OUTSIDE RECORDS SUMMARY | 2023-12-21 17:07 | XMS_ITS | Encounter Summary ---
Author Organization [facility] Address [address] [place] [address] Care Team Providers Care Founder & Ceo Name Role Phone Elsewhere, Pcp Primary Care Provider Unavailabl e Reason for Visit * Reason Comments Catheter Care Plan Encounter Details Date Type Department Care Team (Late st Contact Info) Description 10/14/2023 Documentation Department of Urology in [place], [place] [address] [place] [address] Paula Hernandez M.D. [address] [place] [address] Catheter Care Plan Social History Tobacco Use [...] [facility] 09/09/2023 Sex and Gender Information Value Date Recorded Sex Assigned at Not on file Gender Identity Not on file Sexual Orientation Not on file documented as of this encounter Progress Notes * Ashleigh Ferreira RJonahN. - 10/14/2023 2:05 PM CDT Treatment Summary and Care Plan - Catheter Exchange General Information [facility]/ Patient Name: Kalen Vega Date: 1940 Health Care Provider(s) Medical Provider(s) Cesar Mccollum M.D. Institution: No address on file [place], [place] Urology Provider(s) Chief Urology residents Last seen by Paula Hernandez M.D. Institution: [facility] Treatment Summary Diagnosis Hydronephrosis; hematuria; metastatic prostate cancer; radiation cystitis Treatment Surgery []Yes [x] No Surgery Date(s) Surgical Procedure/Location/Findings Current Treatment Information/Follow-up Care Plan Frequency of Catheter Changes (i.e. every 4 weeks) every 4 weeks Catheter Information Type: Coude red rubber Size:20F Reference #: [id number] Catheter Prescription Expires NA Last seen by [...] visit Department of Urology in [place] [address] [place] [address] Burke Strauss M.D. [address] [place] [phone] Discharge Disposition: Home or Self Care 01/11/2024 10:00 AM CDT Office Visit Department of Urology in [place] [address] [place] [address] Burke Strauss M.D. [address] [place] [phone] Discharge Disposition: Home or Self Care documented as of this encounter Visit Diagnoses Not on filedocumented in this encounter Care Teams Founder & Ceo Relationship Specialty Start Date End Date Elsewhere, Pcp PCP - General Internal Medicine 08/13/23 documented as of this encounter
--- OUTSIDE RECORDS SUMMARY | 2023-12-21 17:07 | XMS_ITS | Encounter Summary ---
Author Organization [facility] Address [address] [place] [address] Care Team Providers Care Truck Sales Manager Name Role Phone Elsewhere, Pcp Primary Care Provider Unavailabl e Reason for Referral * Outpatient (Routine) - Authorized Specialty Diagnoses / Procedures Referred By Contac t Referred To Contact Diagnoses Hematuria Gross Procedures DX Chest AP or PA and Lateral 2 Views Paula Hernandez M.D. [address] [place] [address] [facility] Referral ID Status Reason Start Date Expiration Date V isits Requested Visits Authorized [id number] Authorized 09/16/2023 09/15/2024 1 1 Encounter Details Date Type Department Care Team (Late st Contact Info) Description 09/16/2023 Orders Only Department of Urology in [place], [place] [address] [place] [phone] Paula Hernandez M.D. [address] [place] [address] Hematuria Gross (Primary Dx) Social History Tobacco [...] [facility] 09/09/2023 Sex and Gender Information Value Date Recorded Sex Assigned at Not on file Gender Identity Not on file Sexual Orientation Not on file documented as of this encounter Plan of Treatment Upcoming Encounters Date Type Department Care Team (Latest Contact Info) Description 01/11/2024 9:00 AM CDT Procedure visit Department of Urology in [place], [place] [address] [place] [address] Burke Strauss M.D. [address] [place] [address] Discharge Disposition: Home or Self Care 01/11/2024 10:00 AM CDT Office Visit Department of Urology in [place], [place] [address] [place] [address] Burke Strauss M.D. [address] [place] [address] Discharge Disposition: Home or Self Care Scheduled [...] documented as of this encounter Care Teams Truck Sales Manager Relationship Specialty Start Date End Date Elsewhere, Pcp PCP - General Internal Medicine 08/13/23 documented as of this encounter
--- OUTSIDE RECORDS SUMMARY | 2023-12-21 17:07 | XMS_ITS | Encounter Summary ---
Author Organization [facility] Address [address] [place] [address] Care Team Providers Care Test Baker Name Role Phone Elsewhere, Pcp Primary Care Provider Unavailabl e Reason for Visit * Reason Onset Date Comments follow up questions 09/16/2023 Encounter Details Date Type Department Care Team (Latest Contact Info) Description 09/16/2023 Clinical Communication Department of Urology in [place], [place] [address] [place] [address] Provider, Unknown follow up questions Social History Tobacco Use Types Packs/Day Years Used Date Smoking Tobacco: Never Smokeless Tobacco: Never [employer] Utilities Answer Date Recorded In the past 12 months has [facility] [employer], gas, oil, or water [employer] threatened to [...] living situation today? I have a [facility] place to live 09/09/2023 Sex and [...] CDT Procedure visit Department of Urology in [place], [place] [address] [place] [address] Burke Strauss M.D. [facility] [place] [address] Discharge Disposition: Home or Self Care 01/11/2024 10:00 AM CDT Office Visit Department of Urology in [place], [place] [address] [place] [address] Burke Strauss M.D. 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
--- OUTSIDE RECORDS SUMMARY | 2023-12-21 17:07 | XMS_ITS | Encounter Summary ---
Author Organization [facility] Address [address] [place] [address] Care Team Providers Care Commission Agent Livestock Name Role Phone Elsewhere, Pcp Primary Care Provider Unavailabl e Reason for Referral * Outpatient (Routine) - Authorized Specialty Diagnoses / Procedures Referred By Contaraceli t Referred To Contact Urology Diagnoses Hematuria Paula Benton M.D. [address] [place] [address] [facility] Referral ID Status Reason Start Date Expiration Date V isits Requested Visits Authorized [id number] Authorized 09/15/2023 03/16/2025 1 1 Encounter Details Date Type Department Care Team (Late st Contact Info) Description 09/15/2023 Clinical Communication [facility] [address] [place] [address] Yasmine Loco Social History Tobacco Use Types [...] CDT Procedure visit Department of Urology in [place], [place] [address] [place] [phone] Burke Strauss M.D. [facility] [place] [address] Discharge Disposition: Home or Self Care 01/11/2024 10:00 AM CDT Office Visit Department of Urology in [place], [place] [address] [place] [address] Burke Strauss M.D. [address] [place] [phone] Discharge Disposition: Home or Self Care Scheduled [...] documented as of this encounter Care Teams Commission Agent Livestock Relationship Specialty Start Date End Date Elsewhere, Pcp PCP - General Internal Medicine 08/13/23 documented as of this encounter
--- OUTSIDE RECORDS SUMMARY | 2023-12-21 17:07 | XMS_ITS | Encounter Summary ---
Author Organization [facility] Address [address] [place] [address] Care Team Providers Care Driver/Merchandiser Name Role Phone Elsewhere, Pcp Primary Care Provider Unavailabl e Encounter Details Date Type Department Care Team (Late st Contact Info) Description 09/21/2023 Clinical Communication Department of Urology in [place], [place] [address] [place] [address] Paula Hernandez M.D. [address] [place] [address] Social History Tobacco Use Types Packs/Day Years Used Date Smoking Tobacco: Never Smokeless Tobacco: Never [facility] Utilities Answer Date Recorded In the past 12 months has [facility] [employer], gas, oil, or water [employer] threatened to shut off services in your [...] 2:37 PM CDT I called the patient's [place] physician who he saw yesterday, 09/19 in [...] CDT Procedure visit Department of Urology in [place] [address] [place] [address] Burke Strauss M.D. [facility] [place] [address] Discharge Disposition: Home or Self Care 01/11/2024 10:00 AM CDT Office Visit Department of Urology in [place] [address] [place] [address] Burke Strauss M.D. [address] [place] [phone] Discharge Disposition: Home or Self Care documented as of this encounter Visit Diagnoses Not on filedocumented in this encounter Care Teams Driver/Merchandiser Relationship Specialty Start Date End Date Elsewhere, Pcp PCP - General Internal Medicine 08/13/23 documented as of this encounter
--- OUTSIDE RECORDS SUMMARY | 2023-12-21 17:07 | XMS_ITS | Encounter Summary ---
Author Organization [facility] Address [address] [place] [address] Care Team Providers Care Computer Systems Integrator Name Role Phone Elsewhere, Pcp Primary Care Provider Unavailabl e Reason for Visit * Reason Comments Urinary Retention * Outpatient (Routine) - Closed Specialty Diagnoses / Procedures Referred By Contaraceli t Referred To Contact Diagnoses Hematuria Procedures URO Urethral cath change (UCC) Paula Hernandez M.D. [address] [place] [phone] [facility] Referral ID Status Reason Start Date Expiration Date Visits Re quested Visits Authorized [id number] Closed 09/15/2023 09/14/2024 1 1 Encounter Details Date Type Department Care Team (Late st Contact Info) Description 10/14/2023 1:00 PM CDT Procedure visit Department of Urology in [place], [place] [address] [place] [phone] Paula Hernandez M.D. [address] [place] [phone] Khadra Miller R.N. [address] [place] [phone] Hematuria Social History Tobacco Use Types Packs/Day [...] your living situation today? I have a [facility] 09/09/2023 Sex and Gender [...] CDT Procedure visit Department of Urology in [address] [phone] Burke Strauss M.D. [address] [place] [phone] Discharge Disposition: Home or Self Care 01/11/2024 10:00 AM CDT Office Visit Department of Urology in [address] [phone] Burke Strauss M.D. [address] [place] [phone] Discharge Disposition: Home or Self Care documented as of this encounter Visit Diagnoses Diagnosis Hematuria documented in this encounter Care Teams Computer Systems Integrator Relationship Specialty Start Date End Date Elsewhere, Pcp PCP - General Internal Medicine 08/13/23 documented as of this encounter
--- OUTSIDE RECORDS SUMMARY | 2023-12-21 17:07 | XMS_ITS | Encounter Summary ---
Author Organization [facility] Address [address] [place] [address] Care Team Providers Care Home Service Advisor Name Role Phone Elsewhere, Pcp Primary Care Provider Unavailabl e Encounter Details Date Type Department Care Team (Late st Contact Info) Description 11/09/2023 Clinical Communication Department of Urology in [place], [place] [address] [place] [address] Burke Strauss M.D. [address] [place] [address] Social History Tobacco Use Types Packs/Day Years [...] [facility] 11/15/2023 Sex [...] CDT Procedure visit Department of Urology in [address] [address] Burke Strauss M.D. [address] [place] [phone] Discharge Disposition: Home or Self Care 01/11/2024 10:00 AM CDT Office Visit Department of Urology in [address] [address] Burke Strauss M.D. [address] [place] [phone] Discharge Disposition: Home or Self Care documented as of this encounter Visit Diagnoses Not on filedocumented in this encounter Care Teams Home Service Advisor Relationship Specialty Start Date End Date Elsewhere, Pcp PCP - General Internal Medicine 08/13/23 documented as of this encounter
--- OUTSIDE RECORDS SUMMARY | 2023-12-21 17:07 | XMS_ITS | Encounter Summary ---
Author Organization [facility] Address [address] [place] [address] Care Team Providers Care Guest Service Representative Name Role Phone Elsewhere, Pcp Primary Care Provider Unavailabl e Reason for Visit * Reason Onset Date Comments Oncology records request 11/10/2023 Encounter Details Date Type Department Care Team (Latest Contact Info) Description 11/10/2023 Clinical Communication Department of Urology in [place], [place] [address] [place] [phone] Burke Strauss M.D. [address] [place] [phone] Oncology records request Social History Tobacco Use [...] a [facility] place to live 11/15/2023 Sex [...] Information was filled out and faxed to [facility], Dr. Mireya Tan clinic per Dr. Strauss. Will wait for these to come through and notify Dr. Strauss for his review. [facility] documented in this encounter Plan of Treatment Upcoming Encounters Date Type Department Care Team (Latest Contact Info) Description 01/11/2024 9:00 AM CDT Procedure visit Department of Urology in [place], [place] [address] [place] [address] Burke Strauss M.D. [address] [place] [phone] Discharge Disposition: Home or Self Care 01/11/2024 10:00 AM CDT Office Visit Department of Urology in [place] [address] [place] [address] Burke Strauss M.D. [address] [place] [phone] Discharge Disposition: Home or Self Care documented as of this encounter Visit Diagnoses Not on filedocumented in this encounter Care Teams Guest Service Representative Relationship Specialty Start Date End Date Elsewhere, Pcp PCP - General Internal Medicine 08/13/23 documented as of this encounter
--- OUTSIDE RECORDS SUMMARY | 2023-12-21 17:07 | XMS_ITS | Encounter Summary ---
Author Organization [facility] Address [address] [place] [address] Care Team Providers Care Pulmonary Physician Name Role Phone Elsewhere, Pcp Primary Care Provider Unavailabl e Reason for Referral * Outpatient (Routine) - Closed Specialty Diagnoses / Procedures Referred By Contac t Referred To Contact Diagnoses Hematuria Procedures URO Urethral cath change (UCC) Paula eHrnandez M.D. [address] [place] [address] [facility] Referral ID Status Reason Start Date Expiration Date Visits Re quested Visits Authorized [id number] Closed 09/15/2023 09/14/2024 1 1 * Outpatient (Routine) - Authorized Specialty Diagnoses / Procedures Referred By Contac t Referred To Contact Radiology Diagnoses Hematuria Procedures IR Nephrostomy Tube Exchange Left Paula Hernandez M.D. [address] [place] [address] [facility] Referral ID Status Reason Start Date Expiration Date V isits Requested Visits Authorized [id number] Authorized 09/15/2023 09/14/2024 1 1 Reason for Visit * Reason Comments Blood in Urine Encounter Details Date Type Department Care Team (Latest Contact Info) Description 09/09/2023 7:24 AM CDT - 09/15/2023 5:28 PM CDT Hospital Encounter [facility], Sixth Floor [address] [place] [phone] Gerri Merrill M.D., Ph.D. [address] [place] [phone] Sumit Holbrook M.D. [address] [place] [phone] Hematuria (Primary Dx) Discharge Disposition: Home or Self Care Social History Tobacco Use Types Packs/Day Years Used Date Smoking Tobacco: Never Smokeless Tobacco: Never [facility] uStudioities Answer Date Recorded In the past [address] [facility] mVisum, gas, oil, or water [address] [employer] threatened to shut off services in your [...] [facility] place [facility] 09/09/2023 Sex [...] AM CDT DISCHARGE SUMMARY BRIEF OVERVIEW Hospital: [facility] Discharge Provider: Sumit Holbrook M.D. Primary Team: [...] IP CONSULT TO UROLOGY IP CONSULT TO POLE FRAMER WOUND CARE IP CONSULT TO HYPERBARIC MEDICINE [...] through Care Everywhere. * Sulfamethoxazole/Trimethoprim (By mouth) (Italian) documented in this encounter Medications at Time [...] reviewed. GI Function: Last BM Date: 09/11/23, [place] Stool Chart: Type 5: Soft blobs with [...] 86.8 kg (09/09/2023) Current Weight: 84.5 kg [place] Body Weight (Calculated) : 75.3 kg BMI [...] or 5%. Estimated Needs: Total Calorie Needs: 1834-6154 calories/day Method to Estimate Energy Needs: kcal/kg [...] about patient's nutritional care please contact pager [phone] on weekdays 07:30-16:00 or [phone] on weekends/holidays ([facility]). * Clara Luu APRN, C.N.P., [...] 0659 09/14/23 07 - 09/15/23 0659 Shift [id number] [phone] 24 Hour Total 9966-1069 [phone] 24 Hour Total INTAKE Other 30 60 [...] please contact Vascular and Interventional Radiology DEBBI ([phone]). Anticoagulation: A percutaneous nephrostomy tube is considered [...] care. Please feel free to page the [facility] Inpatient Consult Service at [phone] or the on-call resident at [phone] after 5 PM and on weekends with [...] . Neph tube clear yellow urine. I/O ([id number]): 1.9 L, 1.1 L from the neph [...] questions or concerns. Pager during business hours: [phone] Pager after hours: [phone] * Paula Hernandez M.D. - 09/13/2023 6:05 [...] in place draining clear yellow urine I/O ([id number]): Adequate urine output 2.7 L/248 1 L [...] questions or concerns. Pager during business hours: [phone] Pager after hours: [phone] * Raya Meza Pharm.D., R.Ph., [facility] - 09/12/2023 7:44 AM CDT [...] in place draining clear yellow urine I/O ([id number]): CBI paused for obs Labs: Hb: Hemoglobin [...] Date/Time Bacterial Culture, Aerobic + Susceptibility, Urine [[id number]] (Abnormal) (Susceptibility) Collected: 09/09/23 1128 Lab Status: [...] Susceptible Bacterial Culture, Aerobic + Susceptibility, Urine [[id number]] Collected: 09/03/23 1050 Lab Status: Final result [...] questions or concerns. Pager during business hours: [phone] Pager after hours: [phone] * Js Yang M.D. - 09/11/2023 9:18 [...] [place] [phone] during business hours orat [phone] after hours. * Portillo Crespo Pharm.D., R.Ph., [...] at 0000 Mayur Collier PharmD, LUCERO, BCPS, [facility] Pager [phone] * Js Yang M.D. - 09/10/2023 9:50 [...] Service [place] [phone] during business hours orat [phone] after hours. * Quin Harrell Pharm.D., R.Ph., [...] R.N., C.W.C.N. - 09/09/2023 1:16 PM CDT [facility] Wound RN consulted to [...] None Unable to Measure N *Wound Bed Open;[place];Yellow;Fibrin/Slough Tissue Exposed None Odor None *Exudate Amount Small Drainage Description Serous;Perez Janiya-wound Assessment Intact;Fragile;[place];Purple;Maceration;White Periwound Treatment Liquid skin protectant (SurePrep) *Primary Dressing Gelling fiber/Hydrofiber (Aquacel Ag) *Primary Dressing Frequency of Change Daily & PRN *Secondary Dressing Foam (Sacral Mepilex Border) *Secondary Dressing Frequency of Change Daily & PRN Lengthy Treatment > 30 minutes > 30 minutes Ongoing management Nursing;Wound/surgical dental assistant Partial head to toe skin assessment [...] PM CDT * Raya Meza Pharm.D., R.Ph., [facility] - 09/09/2023 11:17 AM CDT Images from [...] for medicationuse optimization Stephanie Meza, Pharm.D., R.Ph., [facility] Admission Medication History Note Adherence issues: No [...] follow Paula Hernandez M.D. Urology PGY-2 Pager #[phone] Please page Chief Urology at [phone] from 7 AM - 5 PM or at [phone] after hours with any questions/concerns. documented in [...] reviewed. GI Function: Last BM Date: 09/11/23, [place] Stool Chart: Type 5: Soft blobs with [...] 86.8 kg (09/09/2023) Current Weight: 84.5 kg [place] Body Weight (Calculated) : 75.3 kg BMI [...] or 5%. Estimated Needs: Total Calorie Needs: 1009-5276 calories/day Method to Estimate Energy Needs: kcal/kg [...] about patient's nutritional care please contact pager [phone] on weekdays 07:30-16:00 or [phone] on weekends/holidays ([facility]). * Clara Luu APRN, C.N.P., [...] admitted for CBI. He was transferred to [facility] after difficultywith irrigating his Jon and [...] and recommendations. Please feel free to page [phone] [phone] after 5 PM and on weekends with additional questions. VIR will continue to follow * Alessandra Aguero D.O. - 09/09/2023 5:26 PM CDTAssociated Order(s): IP CONSULT TO VASCULAR MEDICINE VASCULAR MEDICINE CONSULT NOTE Requesting Physician: Gerri Merrill M.D.,* SUBJECTIVE REASON FOR CONSULT: assistance with AC management, patient on plavix and eliquis admitted with refractory hematuria requing CBI. Recommend heparin drip? thanks [facility] [phone] HISTORY OF PRESENT ILLNESS Mr. Vega is [...] stents placed in total (2016, no prior [place], completed after positive stress test) Recommended for [...] for radiation proctitis SOCIAL HISTORY Lives in [place], [place] OBJECTIVE AVSS General: Lying in bed, [...] Dr. Victoria, the chief urology resident senior wind energy consultant. Please page chief Urology Service [place] [phone] [place] [phone] after hours. Paula Hernandez M.D. 09/09/23 9:10 [...] End of Shift Summary: Pt DC'd to [facility] [place] with family. Patient educated on nephrostomy tube [...] Urology consulted after discussion with the catheter geochemical laboratory technician who advised that for this patient they are required to get approval from Urologyprior to placing catheter. ED Course as of 09/09/23 0958 TueSeptember 09, 2023 0822 Hemoglobin(!): 8.9 Down from 9.6 one-week ago 0822 Leukocytes(!): 14.5 New leukocytosis with neutrophilia 0822 INR: 1.1 0823 Discussed with the catheter geochemical laboratory technician. Bladder scan showed 125 mL. There [...] Procedure visit Department of Urology in [address] [phone] Burke Strauss M.D. [address] [place] [address] Discharge Disposition: Home or Self Care 01/11/2024 10:00 AM CDT Office Visit Department of Urology in [place], [place] [address] [place] [address] Burke Strauss M.D. [address] [place] [phone] Discharge Disposition: Home or Self Care Pending [...] CBC without Differential (09/15/2023 3:37 AM CDT) [facility] Hemoglobin 9.8(L) 13.2 - 16.6 [...] CDT Paula Hernandez M.D. LAB BLOOD ADD-ON [facility] [address] [place] [address] * Heparin Anti-Xa Assay (09/14/2023 3:19 AM [...] Sumit Holbrook M.D. LAB BLOOD NON ADD-ON [facility] [address] [place], [place] [phone] [place] [address] [facility] [address] [place] [address] * (ABNORMAL) CBC without Differential (09/14/2023 3:19 [...] CDT Paula Hernandez M.[place] [address], [facility] [place] [address] * IR Nephrostomy Tube Placement Left (09/13/2023 2:20 PM CDT) Anatomical Region Laterality Modality Genito Urinary, Vascular Int erventional RST LOS, Vascular Interventional ARZ LOS, Vascular Interventional FLA LOS Left X-Ray Angiography Impressions 09/13/2023 2:33 PM CDT Left 10 Hong Konger percutaneous nephrostomy tube placement. EP Narrative 09/13/2023 [...] tract was further dilated and a 10 [place] Konger nephrostomy tube was placed with loop formed [...] sedation timewas: 9 minutes. IMPRESSION: Left 10 [place] Konger percutaneous nephrostomy tube placement. EP Latisha Whitehead M.D. IMG IR PROCEDURE S * Fungal Culture, Routine (09/13/2023 2:17 PM CDT) Fungal Culture, Routine No growth after 24 days of incubation. 10/08/2023 1:02 AM CDT DTL Fluid (Kidney, Left) 09/13/2023 2:17 PM CDT 09/13/2023 3:56 PM CDT Comment:Specimen Source Site : Fluid Latisha Whitehead M.D. LAB MICROBIOLOGY - GENERAL ORDERABLES [facility] [address] [place] [address], [facility] [address] [place] [address] * Bacterial Culture, Anaerobic + Susceptibility (09/13/2023 2:17 PM CDT) Bacterial Culture, Anaerobic + Susc No growth after 14 days of incubation. 09/27/2023 8:04 AM CDT DTL Fluid (Kidney, Left) 09/13/2023 2:17 PM CDT 09/13/2023 3:56 PM CDT Comment:Specimen Source Site : Fluid Latisha Whitehead M.D. LAB MICROBIOLOGY - GENERAL ORDERABLES Performing Organization Address City/[facility]/ZIP Co de Phone Number [facility] [address] [place] [address], [facility] [address] [place] [address] * Gram Stain (09/13/2023 2:17 PM CDT) Gram Stain No organisms seen. White blood cells, Rare 09/13/2023 9:02 PM CDT DTL Fluid (Kidney, Left) 09/13/2023 2:17 PM CDT 09/13/2023 3:56 PM CDT Comment:Specimen Source Site : Fluid Latisha Whitehead M.D. LAB MICROBIOLOGY - GENERAL ORDERABLES Performing Organization Address City/[facility]/ZIP Co de Phone Number [facility] [address] [place] [address], [facility] [address] [place] [address] * Bacterial Culture, Aerobic + Susceptibility (09/13/2023 2:17 PM CDT) Bacterial Culture, Aerobic + Susc No growth after 5 days of incubation. 09/18/2023 12:35 PM CDT DTL Fluid (Kidney, Left) 09/13/2023 2:17 PM CDT 09/13/2023 3:56 PM CDT Comment:Specimen Source Site : Fluid Latisha Whitehead M.D. LAB MICROBIOLOGY - GENERAL ORDERABLES [facility] [address] [place] [address], [facility] [address] [place] [address] * (ABNORMAL) CBC without Differential (09/13/2023 5:57 [...] CDT Ko Victoria M.D. [place] [address], [facility] [address] [place] [address] * Heparin Anti-Xa Assay (09/13/2023 5:56 AM [...] LAB BLOOD NON ADD-ON Performing Organization Address City/[facility] Co de Phone Number [facility] [address] [place] [address], [facility] [address] [place] [address] * APTT (Activated Partial Thromboplastin Time) (09/13/2023 5:56 AM CDT) Pathologist [facility] Activated Partial Thrombopl Time, P 35 25 - 37 sec 09/13/2023 7:14 AM CDT DTL Blood (Blood, Venous) 09/13/2023 5:56 AM CDT 09/13/2023 6:53 AM CDT Sumit Holbrook M.D. LAB BLOOD ADD-ON Performing Organization Address [facility] Co de Phone Number [facility] [address] [place] [address], [facility] [address] [place] [address] * (ABNORMAL) Basic Metabolic Panel (09/13/2023 5:56 [...] CDT Paula Hernandez M.D. LAB BLOOD ADD-ON [facility] [address] [place] [address], [facility] [address] [place] [address] * NM Kidney DMSA (09/12/2023 12:21 PM [...] reduced radiotracer uptake asdescribed. Js Yang M.D. [facility] PROCEDURES * Transfuse Red Blood Cells [...] M.D. LAB BLOOD ADD-ON Performing Organization Address City/[facility]/ZIP Co de Phone Number [facility] [address] [place] [address] * (ABNORMAL) APTT (Activated Partial Thromboplastin Time) (09/12/2023 3:42 AM CDT) [facility] Activated Partial Thrombopl Time, P 49(H) 25 - 37 sec 09/12/2023 4:35 AM CDT DTL Blood (Blood, Venous) 09/12/2023 3:42 AM CDT 09/12/2023 4:00 AM CDT Gerri Merrill M.D., Ph.D. LAB BLOOD A DD-ON Performing Organization Address [facility] Co de Phone Number [facility] [address] [facility] [address] [place] [address] * (ABNORMAL) Basic Metabolic Panel (09/11/2023 8:23 [...] CDT Js Yang M.D. LAB BLOOD ADD-ON [facility] [address] [place] [address], [facility] [address] [place] [address] * (ABNORMAL) CBC without Differential (09/11/2023 8:23 [...] M.D. LAB BLOOD ADD-ON Performing Organization Address City/[facility]/ZIP Co de Phone Number [facility] [address] [facility] [address] [place] [address] * (ABNORMAL) APTT (Activated Partial Thromboplastin Time) (09/10/2023 11:42 PM CDT) [facility] Activated Partial Thrombopl Time, P 47(H) 25 - 37 sec 09/11/2023 2:05 AM CDT DTL Blood (Blood, Venous) 09/10/2023 11:42 PM CDT 09/11/2023 2:05 AM CDT Gerri Merrill M.D., Ph.D. LAB BLOOD A DD-ON Performing Organization Address [facility] Co de Phone Number [facility] [address] [facility] [address] [place] [address] * US Urinary Bladder (09/10/2023 8:41 PM [...] Thromboplastin Time) (09/10/2023 6:09 PM CDT) Pathologist [facility] Activated Partial Thrombopl Time, P 46(H) 25 - 37 sec 09/10/2023 7:47 PM CDT DTL Blood (Blood, Venous) 09/10/2023 6:09 PM CDT 09/10/2023 6:25 PM CDT Gerri Merrill M.D., Ph.D. LAB BLOOD A DD-ON [facility] [address] [place] [address], [place] [facility] [address] [place] [address] * (ABNORMAL) APTT (Activated Partial Thromboplastin Time) (09/10/2023 10:11 AM CDT) Pathologist [facility] Activated Partial Thrombopl Time, P 63(H) 25 - 37 sec 09/10/2023 10:57 AM CDT DTL Blood (Blood, Venous) 09/10/2023 10:11 AM CDT 09/10/2023 10:40 AM CDT Gerri Merrill M.D., Ph.D. LAB BLOOD A DD-ON Performing Organization Address [facility] Co de Phone Number [facility] [address] [place], [place] [phone] [place] [address] DTL [facility] [address] [place] [address] * (ABNORMAL) CBC without Differential (09/10/2023 3:27 [...] M.D. LAB BLOOD ADD-ON Performing Organization Address [facility]/ZIP Co de Phone Number [facility] [address] [place], [place] [address] [address] [place] [address] * (ABNORMAL) APTT (Activated Partial Thromboplastin Time) (09/10/2023 12:06 AM CDT) [facility] Activated Partial Thrombopl Time, P 57(H) 25 - 37 sec 09/10/2023 1:05 AM CDT DTL Blood (Blood, Venous) 09/10/2023 12:06 AM CDT 09/10/2023 12:33 AM CDT Gerri Merrill M.D., Ph.D. LAB BLOOD A DD-ON Performing Organization Address City/[facility]/ZIP Co de Phone Number [facility] [address] [place], [place] [phone] [place] [address] [address] [place] [address] * APTT (Activated Partial Thromboplastin Time) (09/09/2023 5:08 PM CDT) [facility] Activated Partial Thrombopl Time, P 31 25 - 37 sec 09/09/2023 5:24 PM CDT STMA Blood (Blood, Venous) 09/09/2023 5:08 PM CDT 09/09/2023 5:12 PM CDT Ko Victoria M.D. LAB BLOOD ADD-ON Performing Organization Address City/[facility]/ZIP Co de Phone Number [facility] [address] [place], [place] [phone] [place] [address] [address] [place] [address] * (ABNORMAL) Dipstick, Urine (09/09/2023 11:28 AM CDT) [facility] Hemoglobin, QL, U Large(A) Negative 09/09/2023 [...] Jeffery Church M.D. LAB URINE ORDERA BLES [facility] [address] [place] [address], [facility] [address] [place] [address] * pH, Random, Urine (09/09/2023 11:28 AM CDT) pH, Random, U 6.3 4.5 - 8.0 09/09/2023 12:19 PM CDT DTL Urine 09/09/2023 11:2 8 AM CDT 09/09/2023 11:58 AM CDT Jeffery Churhc M.D. LAB URINE ORDERA BLES Performing Organization Address City/[facility]/ZIP Co de Phone Number [facility] [address] [place] [address], [facility] [address] [place] [address] * Osmolality, Urine (09/09/2023 11:28 AM CDT) Osmolality, U 380 150 - 1150 mOsm/kg 09/09/2023 12:19 PM CDT DTL Urine 09/09/2023 11:2 8 AM CDT 09/09/2023 11:58 AM CDT Jeffery Church M.D. LAB URINE ORDERA BLES [facility] [address] [place] [address], [facility] [address] [place] [address] * (ABNORMAL) Microscopic Manual (09/09/2023 11:28 AM [...] LAB URINE MARLONA SHELLY Performing Organization Address City/[facility]/ZIP Co de Phone Number [facility] [address] [place] [address], [facility] [address] [place] [address] * (ABNORMAL) Gram Stain, Urine (09/09/2023 11:28 AM CDT) Source Urine, Urine, Straight Catheter 09/09/2023 11:58 AM CDT DTL Gram Stain, U Positive(A) Negative 09/09/2023 12:16 PM CDT DTL Comment: Few Gram-negative bacilli ? Yeast Urine 09/09/2023 11:2 8 AM CDT 09/09/2023 11:58 AM CDT Jeffery Church M.D. LAB URINE MARLONA SHELLY [facility] [address] [place] [address], [facility] DTL [facility] [address] [place] [address] * (ABNORMAL) Bacterial Culture, Aerobic + Susceptibility, Urine (09/09/2023 11:28 AM CDT) [facility] Signature Urine Culture ENTEROBACTER CLOACAE COMPLEX [...] mcg/mL: Resistant Enterobacter cloacae complex Ceftriaxone SUSCEPTIBILITY, ALYO (MCG/ML) 32 mcg/mL: Resistant Enterobacter cloacae complex [...] MICROBIOLOGY - GENERAL ORDERABLES Performing Organization Address [facility] Co de Phone Number [facility] [address] [place] [address], [facility] DTL [facility] [address] [place] [address] * (ABNORMAL) Urinalysis, with Microscopic: Urine, Straight [...] 09/09/2023 1:02 PM CDT DTL Predicted Range [id number] mg/24 h 09/09/2023 1:02 PM CDT DTL Comment Micro done on <2.5 mL 09/09/2023 12:27 PM CDT DTL Urine (Urine, Straight Catheter) 09/09/2023 11:28 AM CDT 09/09/2023 11:58 AM CDT Jeffery Church M.D. LAB URINE ORDERA BLES Performing Organization Address [facility]/ZIP Co de Phone Number [facility] [address] [place] [address], [facility] [address] [place] [address] * US Kidneys Bilateral with Bladder (09/09/2023 [...] CDT Jeffery Church M.D. LAB BLOOD ADD-ON [address] [address], [place] [address] * (ABNORMAL) CBC with Differential, Blood (09/09/2023 8:04 AM CDT) Pathologist [facility] Hemoglobin 8.9(L) 13.2 - 16.6 [...] CDT Jeffery Church M.D. LAB BLOOD ADD-ON [facility] [address] [place] [address], [facility] STMA [facility] [address] [place] [address] * (ABNORMAL) Basic Metabolic Panel (09/09/2023 8:04 [...] M.D. LAB BLOOD ADD-ON Performing Organization Address City/[facility] Co de Phone Number [facility] [address] [place] [address], [facility] [place] [address] * Type and Screen (with Reflex Antibody [...] BANK T EST ORDERABLES Performing Organization Address [facility] Co de Phone Number [facility] [address] [place] [address], [facility] STR[address] [address] documented in this encounter Visit Diagnoses Diagnosis [...] Lewis R.N.) 09 (Given - Provider: Brittanie Lewsi R.N. - Comment: Pt requested to have [...] documented as of this encounter Care Teams Pulmonary Physician Relationship Specialty Start Date End Date Elsewhere, Pcp PCP - General Internal Medicine 08/13/23 documented as of this encounter
--- OUTSIDE RECORDS SUMMARY | 2023-12-21 17:08 | XMS_ITS | Clinical Summary ---
Author Organization [facility] Address [place], [place] [address] Care Team Providers Care Concrete Batch Plant Operator Name Role Phone Cesar Mccollum MD Primary Care Provider Nicola Ware MD Unavailable [phone] Mireya Tan MD Unavailable [phone] [facility] Unavailable [phone] Allergies No known active allergies Medications Medication [...] iron, carbonyl (Perfect Iron) 25 mg iron tabIndications:Tv News Director junior blood loss anemia 1 tablet p.o. [...] type, unspecified whether angina present, unspecified whether karuk or transplanted heart Take 1 Tablet (75 mg) by mouth every morning. 90 Tablet 3 4 12/07/19 Discontinu ed(*Allerg ic/Adverse Rxn/Side Effects) Active Problems Problem Noted Date Diagnosed Date Indwelling Jon catheter present 10/20/2023 Nephrostomy tube left 09/13/23 09/29/2023 Chronic blood loss anemia 03/08/2023 DVT of lower limb, acute (HC) 12/01/2022 12/02/19 Radiation proctitis 09/29/2020 Overview (09/29/2020): Colonoscopy 09/2020 radiation proctitis, diverticuli, internal hemorrhoids, no follow up needed Prostate cancer metastatic to bone 04/30/2020 Hydronephrosis of right kidney, s/p Nephrostomy 03/01/2020 02/29/2020 Overview (03/05/2020): due to bladder mass, nephrostomy tube placed 03/01/2020 Acute deep vein thrombosis ( DVT) of iliac vein (HC) 02/2020. 02/29/2020 Overview (03/05/2020): right iliac adjacent to bladder mass Abnormal stress test 09/15/2016 Overview (09/15/2016): -Stress echocardiogram 09/13/2016 Mid and apical anterior wall, mid and apical anterior septum, and mid and apical inferior septum hypokinesis EF 65-70% Anticoagulation monitoring, special range 2014 S/P total hip arthroplasty 08/09/2014 Sensorineural hearing loss, bilateral 07/17/2010 Adenomatous polyp of colon Overview (09/11/2010): Colonoscopy 09/2010 polyp repeat in 5 years Hyperlipidemia DJD (degenerative joint disease) of hip Overview (10/08/2010): right Coronary artery disease Overview (02/29/2020): stent placements 2016 Essential hypertension Prediabetes Resolved Problems Problem Noted Date Diagnosed Date Resolved Date Anemia due to acute blood loss 09/13/2022 03/08/2023 Prostate cancer 03/01/2020 11/20/2020 Overview (03/05/2020): 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 CWZ=770.87 Bladder mass 02/29/2020 04/30/2020 Hematuria 02/29/2020 03/05/2020 Acute deep vein thrombosis (DVT) 02/29/2020 11/20/2020 S/P coronary angioplasty 11/03/2016 Chest pain 09/15/2016 03/05/2020 Elevated prostate specific antigen (PSA) 10/06/2010 03/05/2020 Hip arthritis 10/06/2010 03/05/2020 Colon polyp 07/15/2010 PATRICE (acute kidney injury) Obstructive uropathy 020 Encounters Date Type Department Care Team Description 12/19/2023 10:00 AM CDT Home Care Visit [address] [address] Doreen Hussein RN SN - HOME VISIT 12/16/2023 11:00 AM CDT Home Care Visit [address] [address] Raffy Carter, PT PT - HOME VISIT 12/13/2023 Orders Only [facility] Scanner 1 scan: (1-Ord) [facility], XR SACRUM COCCYX MIN 2V, 12/13/2023 12/07/2023 Telephone [facility] [address] [place] [address] Cesar Mccollum MD Follow Up 12/05/2023 Home Care Visit [address] [address] Doreen Hussein RN SN - HOME VISIT 12/02/2023 10:30 AM CDT Home Care Visit [address] [address] Raffy Carter, PT PT - REASSESSMENT 12/02/2023 Plan of Care Documentation [address] [address] 11/30/2023 4:00 PM CDT Home Care Visit [address] [address] Doreen Hussein, JAMEL SN - OASIS RECERTIFICATION 11/30/2023 10:30 AM CDT Office Visit [facility] [address] [place] [address] Cesar Mccollum MD Follow Up; Medication Management (Discuss plavix - not currently taking it) 11/30/2023 Travel 11/25/2023 11:00 AM CDT Home Care Visit [address] [address] Raffy Carter, PT PT - INITIAL ASSESSMENT 11/23/2023 8:00 AM CDT Home Care Visit [address] [address] Brittanie Prieto RN SN - HOME VISIT 11/21/2023 3:30 PM CDT Home Care Visit [address] [address] Rigo Heart RN SN - OASIS RESUMPTION OF CARE 11/18/2023 Home Care Visit [address] [address] Rufina Cosby RN CARE COORDINATION 11/14/2023 Home Care Visit [address] [address] Raffy Carter, PT PT - OASIS TRANSFER 11/11/2023 10:30 AM CDT Home Care Visit [address] [address] Raffy Carter, PT PT - HOME VISIT 11/09/2023 9:00 AM CDT Home Care Visit [address] [address] Barbara Fuentes RN SN - HOME VISIT 11/07/2023 Home Care Visit [address] [address] Rufina Cosby RN CARE COORDINATION 11/04/2023 10:30 AM CDT Home Care Visit [address] [address] Raffy Carter, PT PT - HOME VISIT 10/31/2023 11:00 AM CDT Home Care Visit [address] [address] Doreen Hussein, JAMEL SN - HOME VISIT 10/28/2023 10:30 AM CDT Home Care Visit [address] [address] Raffy Carter, PT PT - HOME VISIT 10/25/2023 11:30 AM CDT Home Care Visit [address] [address] Raffy Carter, PT PT - REASSESSMENT 10/24/2023 11:00 AM CDT Home Care Visit [address] [address] Doreen Hussein, JAMEL SN - HOME VISIT 10/24/2023 10:00 AM CDT Home Care Visit [address] [address] Liz Fang BUILDINGS AND GROUNDS DIRECTOR VOLUNTEER RECRUITER - HOME VISIT 10/21/2023 12:00 PM CDT Home Care Visit [address] [address] Raffy Carter, PT PT - HOME VISIT 10/20/2023 10:35 AM CDT Office Visit [address] [address] Cesar Mccollum MD Follow Up; Concerns (Discuss protocol for hyperbaric treatment at hospital) 10/20/2023 Travel 10/19/2023 9:45 AM CDT Home Care Visit [address] [address] Rigo Heart, JAMEL SN - HOME VISIT 10/18/2023 Home Care Visit [address] [address] Milli Torre, RN CARE COORDINATION 10/17/2023 3:00 PM CDT Home Care Visit [address] [address] Raffy Carter, PT PT - HOME VISIT 10/17/2023 10:00 AM CDT Home Care Visit [address] [address] Liz Fang, BUILDINGS AND GROUNDS DIRECTOR VOLUNTEER RECRUITER - INITIAL ASSESSMENT 10/12/2023 Telephone [facility] [address] [place] [address] Cesar Mccollum MD Questions 10/11/2023 7:15 AM CDT Home Care Visit [address] [address] Manav Montero, RN SN - WOUND/OSTOMY CHART CONSULT 10/10/2023 4:00 PM CDT Home Care Visit [address] [address] Deonna Oliveira, HEALTH CARE FACILITIES INSPECTOR PT - HOME VISIT 10/10/2023 10:30 AM CDT Home Care Visit [address] [address] Milli Torre, RN SN - HOME VISIT 10/08/2023 9:00 AM CDT Home Care Visit [address] [address] Justyna Hernandez, JAMEL SN - INITIAL ASSESSMENT 10/08/2023 Telephone [facility] [address] [place] [address] Cesar Mccollum MD Home Care (BP med parameters) 10/07/2023 11:30 AM CDT Home Care Visit [address] [address] Raffy Carter, PT PT - HOME VISIT 10/07/2023 Home Care Visit [address] [address] Milli Torre, RN CARE COORDINATION 10/06/2023 1:00 PM CDT Ancillary Procedure [facility] - [address] [place] [address] 10/06/2023 Travel 10/04/2023 1:00 PM CDT Office Visit [facility] [address] [place] [address] Souleymane Miller MD Follow Up (Annual Follow up /Coronary artery disease) 10/04/2023 10:15 AM CDT Home Care Visit [address] [address] Manav Rodríguez, PT PT - OASIS START OF CARE 10/04/2023 Telephone [facility] [address] [place] [address] Manav oRdríguez, PT Home Care 10/04/2023 Orders Only [facility] [address] [place] [address] Souleymane Miller MD 1 scan: (1-Ord) NFLD-EKG-10/04/23 10/04/2023 Travel 10/04/2023 Plan of Care Documentation [address] [address] 10/03/2023 Telephone [facility] [address] [place] [address] Cesar Mccollum MD Questions 10/02/2023 Home Care Visit [address] [address] Saul Lawson, RN CARE COORDINATION 10/01/2023 Home Care Visit [address] [address] Saul Lawson, RN CARE COORDINATION 09/29/2023 1:40 PM CDT Office Visit [facility] [address] [place] [address] Cesar Mccollum MD Hospital F/U (Jensen, urinary problem); Concerns (Bed sore - would like checked) 09/29/2023 Travel 09/23/2023 Telephone [facility] [address] [place] [address] Cesar Mccollum MD Results 09/22/2023 10:30 AM CDT Orders Only [facility] [address] [place] [address] Lab, [facility] 09/22/2023 9:50 AM CDT Nurse/Clinic Staff Only [facility] [address] [facility] [address] Dressing Change 09/22/2023 Telephone [facility] [address] [facility] [place] [address] Cesar Mccollum MD Results 09/22/2023 Travel 09/21/2023 3:20 PM CDT Nurse/Clinic Staff Only [facility] [address] [facility] [place] [id number] Procedure (UA collection from jon and neph tube) 09/21/2023 Telephone [facility] Forrest Nierson [address] [facility] [place] [address] Letty Mera MD 09/20/2023 2:15 PM CDT Ancillary Procedure [facility] [place] [address] 09/20/2023 1:00 PM CDT Office Visit [facility] [address] [place] [address] Letty Mera MD Hospital F/U (Admission Date: 09/09/2023 Discharge Date: 09/15/23); Wound Check (sacrum & neph tube site. ); Home Care; Concerns (Feels like catheter is falling out - pt states that it is leaking. ) 09/20/2023 Travel from Last 3 Months Immunizations Name Administration Dates Next Due COVID-19 VACCINE SPIKEVAX (M ODERNA 50MCG/0.5ML) 12YO+ PFS 07/21/2023,03/08/2023 COVID-19 vaccine (Pfizer-Bio NTech 30mcg/0.3mL) 12YO+ [...] Sign Reading Time Taken Comments Blood Pressure 115/65 12/19/2023 10:25 AM CDT Pulse 88 12/19/2023 10:25 AM CDT Temperature 36.7 ??C (98.1 ??F) 12/19/2023 10:25 AM C DT Respiratory Rate 15 12/16/2023 11:20 AM CDT Oxygen Saturation 98% 12/19/2023 10:25 AM CDT Inhaled Oxygen Concentration - - Weight 80.6 kg (177 lb 9.6 oz) 11/30/2023 10:38 AM CDT Height 177.1 cm (5' 9.72) 07/21/2023 9:05 AM CD T Body Mass Index 25.69 07/21/2023 9:05 AM CDT Plan of Treatment Upcoming Encounters Date Type Department Care Team (Late st Contact Info) Description 12/23/2023 11:00 AM CDT Home Care Visit [address] [address] Raffy Carter, PT [address] [place] [address] 12/26/2023 4:00 AM CDT Home Care Visit [address] [address] Doreen Hussein RN [address] [place] [address] 01/02/2024 4:00 AM CDT Home Care Visit [address] [address] Doreen Hussein RN [address] [place] [address] 01/09/2024 4:00 AM CDT Home Care Visit [address] [address] Doreen Hussein, JAMEL [address] [place] [address] 01/16/2024 4:00 AM CDT Home Care Visit [address] [address] Doreen Hussein, RN [address] [place] [address] 01/23/2024 4:00 AM CDT Home Care Visit [address] [address] Doreen Hussein, RN [address] [place], [place] [phone] Health Maintenance Due Date Last Done Comments [...] Completed 4 Medical Devices Implanted Type Area Flooring Helper Device Identifier Shelf Expiration Date Model / Serial / Lot Stent Uret [id number] Contour - [id number] Implanted:Qty: 1 on 07/18/2023 by Nicola Ware MD at [facility] Right: [employer] [facility] 02/27/2026 [id number] / / [id number] Procedures Procedure Name Priority Date/Time Associated Diagnosis Comments SCAN-RADIOLOGY REPORT 12/13/2023 12:00 AM CDT HEMOGLOBIN Routine 11/30/2023 11:45 AM CDT Chronic blood loss anemia ECHO TTE COMPLETE WO CONTRAST DEBBI 10/06/2023 1:34 PM CDT Coronary artery disease, unspecified vessel or lesion type, unspecified whether angina present, unspecified whether karuk or transplanted heart EKG 12 LEAD Routine 10/04/2023 2:15 PM CDT Coronary artery disease, unspecified vessel or lesion type, unspecified whether angina present, unspecified whether karuk or transplanted heart SD READING EKG - NO CHARGE, COMP ONLY Routine 10/04/2023 2:14 PM CDT Coronary artery disease, unspecified vessel or lesion type, unspecified whether angina present, unspecified whether karuk or transplanted heart CBC WITH AUTO DIFFERENTIAL [...] - 17.5 g/dL 11/30/2023 11:50 AM CDT [facility] MCV 92 80 - 100 fL 11/30/2023 11:50 AM CDT [facility] Blood BLOOD SPECIMEN / Unknown Venipuncture / Unknown 11/30/2023 11:45 AM CDT 11/30/2023 11:45 AM CDT Cesar Mccollum MD HEMATOLOGY [facility] [address] [place] [address], * ECHO TTE COMPLETE WO CONTRAST (10/06/2023 1:34 PM CDT) AORTIC VALVE MEAN PG 10 mmHg EJECTION FRACTION 60 % PEAK TR VELOCITY 2.8 m/s LVEDD 4.2 cm EJECTION FRACTION 65 - 70% Anatomical Region Laterality Modality Ultrasound 10/06/2023 12:5 9 PM CDT Narrative 10/06/2023 2:17 PM CDT ECHOCARDIOGRAM SHYAM SANDS ? Accession#: ?? [id number] : ?1940 83 years Study Date: ?? 10/06/2023 12:59:18 PM Gender: M ?BP: ? 131/72 mmHg Height: 175.26 cm ?BSA: ?1.98 m? ? ? Weight: 81.65 kg ? Tech: ? MBF ? Referring MD: SOULEYMANE MILLER Site: ? [facility] [place] Reading Location: Mobile OP Patient Location: Outpatient. [...] . This study was interpreted by an [facility] accredited facility. ??Final ?? Procedure Note Manav Feliciano MD - 10/06/2023 ECHOCARDIOGRAM SHYAM SANDS : 1940 83 years Study Date: 10/06/2023 12:59:18 PM Gender: M BP: 131/72 mmHg Height: 175.26 cm BSA: 1.98 m? ? ? Weight: 81.65 kg Tech: CONSTANZA Referring MD: SOULEYMANE MILLER Site: [facility] Reading Location: [place] OP Patient Location: Outpatient. Procedure: 2D, Color [...] . This study was interpreted by an [facility] accredited facility. Final Souleymane Miller MD ECHO ORD * EKG 12 LEAD (10/04/2023 2:15 PM CDT) Souleymane Miller MD EKG ORD * SD READING EKG - NO CHARGE, COMP ONLY (10/04/2023 2:14 PM CDT) Souleymane Miller MD PB - PROVIDER READ INGS * (ABNORMAL) CBC WITH AUTO DIFFERENTIAL (09/22/2023 10:39 AM CDT) Only the most recent of2 resultswithin the time period is included. WHITE BLOOD COUNT 11.0 4.5 - 11.0 thou/cu mm 09/22/2023 10:46 AM CDT [facility] RED BLOOD COUNT 2.81(L) 4.30 - 5.90 mil/cu mm 09/22/2023 10:46 AM CDT [facility] HEMOGLOBIN 8.0(L) 13.5 - 17.5 g/dL 09/22/2023 10:46 AM CDT [facility] HEMATOCRIT 25.2(L) 37.0 - 53.0 % 09/22/2023 10:46 AM CDT [facility] MCV 90 80 - 100 fL 09/22/2023 10:46 AM CDT [facility] MCH 28.5 26.0 - 34.0 pg 09/22/2023 10:46 AM CDT [facility] MCHC 31.7(L) 32.0 - 36.0 g/dL 09/22/2023 10:46 AM CDT [facility] RDW 17.5(H) 11.5 - 15.5 % 09/22/2023 10:46 AM CDT [facility] PLATELET COUNT 466(H) 140 - 440 thou/cu mm 09/22/2023 10:46 AM CDT [facility] MPV 8.9 6.5 - 11.0 fL 09/22/2023 10:46 AM CDT [facility] % NEUT 86.3 % 09/22/2023 10:46 AM CDT [facility] % LYMPH 6.6 % 09/22/2023 10:46 AM CDT [facility] % MONO 5.8 % 09/22/2023 10:46 AM CDT [facility] % EOS 1.2 % 09/22/2023 10:46 AM CDT [facility] % BASO 0.1 % 09/22/2023 10:46 AM CDT [facility] ABSOLUTE NEUTROPHILS 9.5(H) 1.7 - 7.0 thou/cu mm 09/22/2023 10:46 AM CDT [facility] ABSOLUTE LYMPHOCYTES 0.7(L) 0.9 - 2.9 thou/cu mm 09/22/2023 10:46 AM CDT [facility] ABSOLUTE MONOCYTES 0.6 <0.9 thou/cu mm 09/22/2023 10:46 AM CDT [facility] ABSOLUTE EOSINOPHILS 0.1 <0.5 thou/cu mm 09/22/2023 10:46 AM CDT [facility] ABSOLUTE BASOPHILS 0.0 <0.3 thou/cu mm 09/22/2023 10:46 AM CDT [facility] Blood BLOOD SPECIMEN / Unknown Venipuncture / Unknown 09/22/2023 10:39 AM CDT 09/22/2023 10:43 AM CDT Letty Mera MD HEMATOLOGY [facility] [address] [place] [address], [place] [phone] * (ABNORMAL) URINE CULTURE (09/21/2023 4:40 PM CDT) Only the most recent of2 resultswithin the time period is included. CULTURE RESULT(A) 09/24/2023 9:54 AM CDT [facility] TR[facility]ORATORY CULTURE >100,000 CFU/mL Shirin albicans 09/24/2023 9:54 AM CDT [facility] TRAL LABORATORY Urine URINE SPECIMEN / Unknown Non-Blood / Unknown 09/21/2023 4:40 PM CDT 09/21/2023 4:41 PM CDT Letty Mera MD MICROBIOLO GY Performing Organization Address City/[facility]/ZIP Co de Phone Number [facility] [address] [address], [place] * XR CHEST 2 VIEWS PA [...] Documents on File Type Date Recorded Patient Bodily Injury Adjuster Expl anation Healthcare Directive 05/15/2021 022 * [...] Code Status Discussion: Reviewed Preferences Care Teams Concrete Batch Plant Operator Relationship Specialty Start Date End Date Cesar Mccollum MD [address] [place] [address] PCP - General Family Practice 03/04/20 Nicola Ware MD [address] [place] [phone] Surgery - Urology 03/13/20 Mireya Tan MD [address] [place] [phone] Hematology - Pathology 03/13/20 [facility] [address] [place], [place] [phone] 09/29/23
--- OUTSIDE RECORDS SUMMARY | 2023-12-21 17:08 | XMS_ITS | Encounter Summary ---
Author Organization [facility] Address [address] [place] [address] Care Team Providers Care Tension Worker Name Role Phone Elsewhere, Pcp Primary Care Provider Unavailabl e Encounter Details Date Type Department Care Team (Late st Contact Info) Description 09/06/2023 Orders Only Section of Hyperbaric Medicine in [place], [place] [address] [place] [address] Kira Ferraro, ARUN, C.N.P., M.S.N. [address] [place] [address] Social History Tobacco Use Types Packs/Day Years Used Date Smoking Tobacco: Never Smokeless Tobacco: Never [facility] Utilities Answer Date Recorded In [...] Procedure visit Department of Urology in [address] [phone] Burke Strauss M.D. [address] [place] [phone] Discharge Disposition: Home or Self Care 01/11/2024 10:00 AM CDT Office Visit Department of Urology in [place] [address] [place] [address] Burke Strauss M.D. [address] [place] [address] Discharge Disposition: Home or Self Care documented as of this encounter Visit Diagnoses Not on filedocumented in this encounter Additional Health Concerns Infection Onset Date Last Indicated Resolved Time MDR GNB 09/09/2023 09/09/2023 09/16/2023 5:56 AM CDT documented as of this encounter Care Teams Tension Worker Relationship Specialty Start Date End Date Elsewhere, Pcp PCP - General Internal Medicine 08/13/23 documented as of this encounter
--- OUTSIDE RECORDS SUMMARY | 2023-12-21 17:08 | XMS_ITS | Data Portability ---
Author Organization [facility], [facility] Address [address] [place] [address] Care Team Providers Care Applique Sewer Name Role Phone MASOUD SAUER Primary Care Provider [phone] Assessment No assessment recorded. Plan of Treatment Reminders Order Date Submit Date Provider Last Modified By Organization Details Last Modified Time Details Appointments None recorded . Lab urinalys is, dipstick 2023 024 [email or web address] [facility], [address] [place], [address], 4 15:08:54 culture, urine 2023 024 [facility], [address], [place], [address], 4 10:11:11 Referral None recorded . Procedures None recorded . Surgeries cystosco py with ureteral stent exchange (SURG) 2021 022 [email or web address] Not available 16:50:47 cystosco py with ureteral stent exchange (SURG) 2021 022 [email or web address] Not available 15:46:30 Imaging None recorded . Medication Orders Myrbetri q 50 mg tablet,e xtended release 2021 022 CARL JUNCTION [facility] #[id number], [address] [place], [place], [phone], 2 17:50:02 Bactrim DS 800 mg-160 mg tablet 2023 024 [email or web address] [facility] #[id number], [address] [place], [place], [phone], 16:19:28 Patient TargetsNo targets recorded. Patient InstructionsNo [...] for provi sydni revie w. Not Available [facility] [address], [place], [address], 06/25/2023 10:11:11 06/23/19 24 06/23/2023 urina lysis , dipst ick Color-Status Red Not Available [facility] [address], [place], [address], 06/23/2023 15:08:10 06/23/19 24 06/23/2023 urina lysis , dipst ick pH-Status 7.5 Not Available [facility] [address], [place], [address], 06/23/2023 15:08:10 06/23/19 24 06/23/2023 urina lysis , dipst ick Protein-Stat us >=9.0 Not Available [facility] [address], [place], [address], 06/23/2023 15:08:10 06/23/19 24 06/23/2023 urina lysis , dipst ick Nitrates-Sta tus negati ve Not Available [facility] [address], [place], [address], 06/23/2023 15:08:10 06/23/19 24 06/23/2023 urina lysis , dipst ick Blood-Status Large Not Available [facility] [address], [place], [address], 06/23/2023 15:08:10 06/23/19 24 06/23/2023 urina lysis , dipst ick Leuko-Status Negati ve Not Available [facility] [address], [place], [address], 06/23/2023 15:08:10 06/23/19 24 06/23/2023 urina lysis , dipst ick Specimen Type Voided Not Available [facility] [address], [place], [address], 06/23/2023 15:08:10 07/04/19 24 07/01/2023 CT, abdom en + pelvi s, w/o contr ast No observ ation record ed. [email or web address] [facility] [address], [place], [address], 09/01/2023 14:40:29 07/18/19 24 07/18/2023 XR, kidne y + urete r + bladd er No observ ation record ed. [email or web address] [facility] [address], [place], [address], 07/22/2023 15:56:19 Result Notes None recorded. Procedures Surgical History Date Name Laterality Status Provider Name and Address Organization Details Recorded Time Bladder Scan completed Rabia Ferrell [facility], [facility] 06/23/2023 15:08:00 Cystoscopy completed Nicola Ware MD [address], [place], [address], [facility] 12/30/2021 17:11:17 Colonoscopy completed Nicola Ware MD [address], [place], [address], [facility] 12/30/2021 17:11:22 Imaging Results Imaging Date Name Status LastModified by Organiz ation Details LastModified Time 07/01/2023 CT, abdomen + pelvis, w/o contrast completed [address] [facility] [address], [place], [address], 09/01/2023 14:40:29 07/18/2023 XR, kidney + ureter + bladder completed [address], [place], [address], 07/22/2023 15:56:19 Procedure Notes None recorded. Medical [...] PY PREP INSTRUCTI ONS RECEIVED FROM [facility] active Not Available Not Available No t Available furosemide 20 mg tablet TAKE 1 TABLET BY MOUTH DAILY active Not Available Not Available No t Available cefuroxime axetil 500 mg tablet active Not Available Not Available No t Available polyethylen e glycol 3350 17 gram/dose oral powder MIX AND DRINK DIRECTED IN [facility] PY PREP INSTRUCTI ONS RECEIVED FROM [facility] active Not Available Not Available No [...] Updated DateTime 12/30/2021 177.8 cm 27.4 kg/m2 73393.14 g Nicola Ware MD [address] [place] [address], [address], [facility] 12/30/2021 17:10:12 Date Recorded Body height Body mass index (BMI) Body weight Provider Name and Address Organization Details Last Updated DateTime 03/12/2022 177.8 cm 27.4 kg/m2 11481.14 g Rabia Ferrell [facility] 03/12/2022 13:55:47 Social History Question Answer Notes LastModified by Organizat ion Details LastModified Time Tobacco Smoking Status Never Smoker Nicola Ware MD [address] [place] [address],[address], [address], [facility] 12/30/2021 17:11:00 What Is Your Level [...] Diagnosis/Indication Diagnosis SNOMED-CT Code Diagnosis ICD10 Code [id number] Nicola Ware MD [facility] [address] [place] [address] 12/30/2021 16:01:19 01/01/2022 09:36:50 Increased frequency of urination 839582514 R35.0 Malignant tumor of prostate 005134436 C61 Hydronephrosis 60525528 N13.30 [id number] Aliza Landeros [facility] [address] [place] [address] 03/12/2022 13:13:50 03/15/2022 14:00:47 Increased frequency of urination 498659162 R35.0 Malignant tumor of prostate 859842081 C61 Hydronephrosis 95080010 N13.30 [id number] Nicola Ware MD [facility] [address] [place] [address] 06/23/2023 14:16:52 06/24/2023 08:40:38 Blood in urine 54286457 R31.9 Health Concerns Section Related Observation LastModified by Organization Detai ls LastModified Time None Recorded Concern Status LastModified by Organization Details LastModified Time None Recorded Advance Directives Directive None Recorded Payers Encounter Date Sequence Insurance Name Policy Number Policy Krishnan Covered Member ID Krishnan Member ID Guarantor Name 12/30/2021 1 [employer] (MEDICARE REPLACEMENT/ ADVANTAGE - PPO) [id number] José Miguel Srinivasan Braucher [id number] José Miguel Srinivasan Braucher 03/12/2022 1 [employer] (MEDICARE REPLACEMENT/ ADVANTAGE - PPO) [id number] José Miguel Srinivasan Braucher [id number] José Miguel D Braucher 06/23/2023 1 [employer] (MEDICARE REPLACEMENT/ ADVANTAGE - PPO) [id number] José Miguel Srinivasan Braucher [id number] José Miguel Vega Notes Date Note Type Note Provider Name and Address Organization Details Recorded Time 12/30/2021 text/html HPI Notes: Excer pt from hospital consultation... 81 y.o. year old male who was admitted to [facility] for gross hematuria & CT findings. Onset [...] of the history. Nicola Ware MD [address], [place], [address], [facility] 12/30/2021 23:07:10 03/12/2022 text/html HPI Notes: Excer pt from hospital consultation... 81 y.o. year old male who was admitted to [facility] for gross hematuria & CT findings. Onset [...] some of the history. Nicola Ware MD [address] [place] [address],[address], [place], [address], [facility] 03/12/2022 17:21:47 06/23/2023 text/html HPI Notes: 83 Y male here after calling triage this AM with hematuria/pain with urination. Patient has stent in place, last exchange 02/08/2022. 06/23/23 visit completed by Curry Ware MD [address] [place] [address],[address], [place], [address], [facility] 06/23/2023 16:19:33
--- OUTSIDE RECORDS SUMMARY | 2023-12-21 17:08 | XMS_ITS | Encounter Summary ---
Author Organization [facility] Address [address] [place] [address] Care Team Providers Care Dock Clerk Name Role Phone Elsewhere, Pcp Primary [...] have a [facility] place to live 08/13/2023 Sex and Gender Information Value Date Recorded Sex Assigned at Not on file Gender Identity Not on file Sexual Orientation Not on file documented as of this encounter Plan of Treatment Upcoming Encounters Date Type Department Care Team (Latest Contact Info) Description 01/11/2024 9:00 AM CDT Procedure visit Department of Urology in [place] [address] [place] [address] Burke Strauss M.D. [facility] [place] [address] Discharge Disposition: Home or Self Care 01/11/2024 10:00 AM CDT Office Visit Department of Urology in [place] [address] [place] [address] Burke Strauss M.D. 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
--- OUTSIDE RECORDS SUMMARY | 2023-12-21 17:08 | XMS_ITS | Encounter Summary ---
Author Organization [facility] Address [address] [place] [address] Care Team Providers Care Drug Abuse Technician Name Role Phone Elsewhere, Pcp Primary Care Provider Unavailabl e Encounter Details Date Type Department Care Team (Latest Contact Info) Description 08/13/2023 Intake [facility] Social History Tobacco Use Types Packs/Day Years Used Date Smoking Tobacco: Never Smokeless Tobacco: Never [facility] Utilities Answer Date Recorded In [...] living situation today? I have a [facility] place to live 08/13/2023 Sex and Gender Information Value Date Recorded Sex Assigned at Not on file Gender Identity Not on file Sexual Orientation Not on file documented as of this encounter Plan of Treatment Upcoming Encounters Date Type Department Care Team (Latest Contact Info) Description 01/11/2024 9:00 AM CDT Procedure visit Department of Urology in [place] [address] [place] [address] Burke Strauss M.D. [facility] [place] [address] Discharge Disposition: Home or Self Care 01/11/2024 10:00 AM CDT Office Visit Department of Urology in [place] [address] [place] [address] Burke Strauss M.D. 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
== END 2023-11-25 08:12 | disposition home or self-care (01) ==
LOC: WOUND 12-21 17:03
PROVIDERS: PCP Family Medicine; Visit Provider Nurse Practitioner Family
DX: N30.41 Irradiation cystitis with hematuria (principal); K62.7 Radiation proctitis; L89.153 Pressure ulcer of sacral region, stage 3; C61 Malignant neoplasm of prostate; D64.9 Anemia, unspecified; Y84.2 Radiological procedure and radiotherapy as the cause of abnormal reaction of the patient, or of later complication, without mention of misadventure at the time of the procedure
CPT/HCPCS: 11042; G0277

== ENCOUNTER 2023-12-02 12:40 | Outpatient (CLI) | payer MEDICARE, OTHER, SELFPAY ==
--- OUTSIDE RECORDS SUMMARY | 2023-12-02 12:43 | XMS_ITS | Clinical Summary ---
Author Organization [facility] Address [address] [place] [address] Care Team Providers Care Head Of Maintenance Name Role Phone Elsewhere, Pcp Primary Care Provider Unavailabl e Source Comments Patient records contain information from all sites at [facility]. For routine questions regarding patient records, call [phone] during business hours, M-F 8:00 AM - 5:00 PM Central Time. Record requests for emergency care only can be directed to [phone] at any time.[facility] Allergies No known active allergies Medications Medication Sig Dispensed Refills Start Date End Date Status amLODIPine (NORVASC) 10 mg tablet Take 10 mg by mouth daily. Takes in the afternoon, 1 to 2 pm 0 Active metoprolol succinate (TOPROL-XL) 50 mg 24 hr tablet Take 50 mg by mouth at bedtime. 0 Active nitroglycerin (NITROSTAT) 0.[address] 0.4 mg under the tongue every 5 (five) minutes as needed for chest pain. If chest pain continues after 5 minutes, take the second dose and call [phone] Active tamsulosin (FLOMAX) 0.4 mg 24 [...] 10 mg by mouth every morning. Active clopidogreL (Plavix) 75 mg tablet Take 1 tablet (75 mg total) by mouth every morning. DO NOT TAKE UNTIL FOLLOW-UP 4 Active clopidogreL (PLAVIX) 75 mg tablet Take 75 mg by mouth every morning. 0 11/17/19 24 Discontinued trospium (SANCTURA) 20 mg tablet Take 1 tablet (20 mg total) by mouth 2 (two) times a day as needed (bladder spasms). 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 Current Use Of Oth er Agents Affecting Estrogen Receptors And Estrogen Levels 11/15/2023 Presence Of Other Vascular Implants And Grafts 0 11/15/2023 Other Specified Disorders Of Bladder 11/15/2023 Other Retention Of Urine 11/15/2023 PreDiabetes 11/15/2023 Presence Of Urogenital Implants 11/15/2023 Unspecified Complication Of Genitourinary Prosthetic Device Implant And Graft Initial 11/15/2023 Inferior Vena Cava Filter 11/15/2023 Mcfp (Current) Anticoagulant Treatment 09/2023 Presence Of Other [...] Encounters Date Type Department Care Team Description 11/30/2023 6:44 PM CDT - 11/30/2023 8:06 PM CDT Emergency [facility] [address] [place] [address] Carmen Cherry M.D., M.P.H. Leakage Of Other Urinary Catheter Initial (HCC) (Primary Dx) Discharge Disposition: Home or Self Care 11/15/2023 10:40 AM CDT Ancillary Procedure Department of Wound Ostomy 11/14/2023 11:38 PM CDT - 11/17/2023 3:55 PM CDT Hospital Encounter [facility], [facility], Fifth Floor [address] [place] [address] Eliceo Guerrier M.D., Ph.D. Sylvie Álvarez M.B.B.S., M.D. Rashawn Vences M.D. Burkland, Carl B, M.D. Hematuria Gross (Primary Dx) Discharge Disposition: Home-Health Care [facility] 11/14/2023 10:44 AM CDT - 11/14/2023 10:23 PM CDT Emergency [facility] [address] [place] [phone] Sergio Raza M.D. Hematuria (Primary Dx); Malfunction Mechanical Urethral Catheter Initial (HCC) Discharge Disposition: [facility] 11/14/2023 Documentation Department of Urology in [address] [address] Sowmya Aviles APRN C.NJonahPJonah, M.S.N. 11/14/2023 Intake [facility] 11/10/2023 Clinical Communication Department of Urology in [address] [phone] Burke Strauss M.D. Oncology records request 11/09/2023 11:00 AM CDT Office Visit Department of Urology in [address] [phone] Burke Strauss M.D. Primary Malignant Neoplasm Of Prostate (HCC) (Primary Dx); Retention Urinary Chronic; Hematuria Gross Discharge Disposition: Home or Self Care 11/09/2023 Clinical Communication Department of Urology in [address] [address] Burke Strauss M.D. 10/27/2023 Clinical Communication Department of Urology in [address] [address] Burke Strauss M.D. 10/14/2023 1:00 PM CDT Procedure visit Department of Urology in [place], [place] [address] [place] [phone] Paula Hernandez M.D. Reichmann, Lynne G, R.N. Hematuria 10/14/2023 Documentation Department of Urology in [place], [place] [address] [place] [phone] Paula Hernandez M.D. Catheter Care Plan 09/27/2023 Clinical Communication Department of Urology in [place], [place] [address] [place] [phone] Paula Hernandez M.D. 09/21/2023 Clinical Communication Department of Urology in [place], [place] [address] [place] [phone] Paula Hernandez M.D. 09/16/2023 Clinical Communication Department of Urology in [place], [place] [address] [place] [phone] Provider, Unknown follow up questions 09/16/2023 Orders Only Department of Urology in [address] [address] Paula Hernandez M.D. Hematuria Gross (Primary Dx) 09/15/2023 Clinical Communication [facility] [address] [place] [phone] Yasmine Loco 09/09/2023 12:10 PM CDT Ancillary Procedure Department of Nursing 09/09/2023 7:24 AM CDT - 09/15/2023 5:28 PM CDT Hospital Encounter [facility], [facility], Sixth Floor [address] [place] [phone] Gerri Merrill M.D., Ph.D. Sumit Holbrook M.D. Hematuria (Primary Dx) Discharge Disposition: Home or Self Care 09/09/2023 Documentation Department of Urology in [place], [place] [address] [place] [phone] Ko Victoria M.D. 09/06/2023 Orders Only Section of Hyperbaric Medicine in [place], [place] [address] [place] [address] Kira Ferraro APRN, C.N.P., M.S.N. 09/06/2023 Clinical Communication [facility] [address] [place] [address] Yasmine Loco 09/01/2023 10:05 AM CDT Ancillary Procedure Department of Nursing 08/30/2023 7:35 PM CDT - 09/05/2023 4:09 PM CDT Hospital En[facility], First Floor [address] [place] [address] Kirstin Hughes M.D. Thompson, R. Houston, M.D. Hematuria (Primary Dx); Tachycardia; Hematuria Gross Discharge Disposition: Home-Health Care c from Last 3 Months Social History Tobacco Use Types Packs/Day Years Used Date Smoking Tobacco: Never Smokeless Tobacco: Never Tobacco Cessation:Counseling Given: Not Answered [facility] Utilities Answer Date Recorded [...] Date Recorded Dental: Regular Dentist Unknown 05/30/19 Housing Stability Answer Date Recorded What is your living situation today? I have a [facility] place to live 11/15/2023 Sex and Gender Information Value Date Recorded Sex Assigned at Not on file Gender Identity Not on file Sexual Orientation Not on file Last Filed Vital Signs Vital Sign Reading Time Taken Comments Blood Pressure 126/69 11/30/2023 5:36 PM CDT Pulse 70 11/30/2023 5:36 PM CDT Temperature 36.9 ??C (98.4 ??F) 11/30/2023 5:36 PM CD T Respiratory Rate 16 11/30/2023 8:06 PM CDT Oxygen Saturation 99% 11/30/2023 5:36 PM CDT Inhaled Oxygen Concentration - - Weight 81.2 kg (179 lb 1.6 oz) 11/30/2023 5:38 P M CDT Height 177.8 cm (5' 10) 11/14/2023 11:59 PM CDT Body Mass Index 25.7 11/14/2023 11:59 PM CDT Plan of Treatment Upcoming Encounters Date Type Department Care Team (Latest Contact Info) Description 12/07/2023 10:15 AM CDT Procedure visit Department of Urology in [place], [place] [address] [place] [phone] Bruke Strauss M.D. [facility] [place] [phone] Discharge Disposition: Home or Self Care 12/07/2023 10:30 AM CDT Office Visit Department of Urology in [place], [place] [address] [place] [phone] Burke Strauss M.D. [facility] [place] [address] Discharge Disposition: Home or Self Care Health [...] Completed 11/14/2023 Medical Devices Implanted Type Area Gripper Attacher Device Identifier Shelf Expiration Date Model / Serial / Lot Clp Hrzn Ti 6 Clp Lg Orng - [id number] Implanted:Qt y: 1 on 08/15/2023 by Boubacar Brock M.D. at [facility] Hardware e.g. pins/screws /rods Abdomen [employer]flex [employer] [id number] 02/29/2028 [id number] / / [id number] Clp Hrzn Ti 6 Clp Lg Orng - [id number] Implanted:Qt y: 1 on 08/15/2023 by Boubacar Brock M.D. at [facility] Hardware e.g. pins/screws /rods Abdomen Teleflex [employer] [id number] 02/29/2028 [id number] / / [id number] Clp Hrzn Ti 6 Clp Md Monty - [id number] Implanted:Qt y: 1 on 08/15/2023 by Boubacar Brock M.D. at [facility] Hardware e.g. pins/screws /rods Abdomen [employer] [id number] 03/13/2028 [id number] / / [id number] Clp Hrzn Ti 6 Clp Monty - [id number] Implanted:Qt y: 1 on 08/15/2023 by Boubacar Brock M.D. at [facility] Hardware e.g. pins/screws /rods Abdomen [employer] [id number] 03/21/2028 [id number] / / [id number] Stnt Uret Inl 6fx24 - [id number] Implanted:Qt y: 1 on 08/15/2023 by Jakob De Paz M.D. at [facility] Ureteral Stent N/A: Ureter C.[employer].Bard [id number] 11/18/2027 [id number] / / [id number] Procedures Procedure Name Priority Date/Time Associated Diagnosis [...] (APTT), P STAT 09/01/2023 9:05 AM CDT from Last 3 Months Results * (ABNORMAL) CBC without Differential (11/17/2023 7:24 AM CDT) Only the most recent of11 resultswithin the time period is included. Hemoglobin [...] D.O. LAB BLOOD ADD-ON [facility] [address] [place] [address], [facility] [place] [address] * (ABNORMAL) Basic Metabolic Panel (11/17/2023 7:24 AM CDT) Only the most recent of7 [...] D.O. LAB BLOOD ADD-ON [facility] [address] [place] [address] * Glucose, POCT (11/17/2023 6:45 AM CDT) Glucose, POCT, B 107 70 - 140 mg/dL 11/17/2023 6:45 AM CDT [facility] Blood 11/17/2023 6:45 AM CDT 11/17/2023 7:03 AM CDT Generic Rals LAB POCT ORDERABLES- MANUAL [facility] [address] [place] [address] * (ABNORMAL) Hemoglobin (11/16/2023 4:43 PM CDT) Hemoglobin 9.2(L) 13.2 - 16.6 g/dL 11/16/2023 5:13 PM CDT [facility] Blood (Blood, Venous) 11/16/2023 4:43 PM CDT 11/16/2023 5:10 PM CDT Madelyn Cesar D.O. LAB BLOOD ADD-ON [facility] [address] [place] [address], [facility] [place] [address] [place] [address] * (ABNORMAL) CBC with Differential, Blood (11/16/2023 6:25 AM CDT) Only the most recent of4 resultswithin the time period is included. Hemoglobin [...] CDT Rashawn Vences M.D. LAB BLOOD ADD-ON [facility] [address] [place] [address], [facility] [place] [address] [place] [address] * (ABNORMAL) Comprehensive Metabolic Panel (11/16/2023 6:25 [...] M.D. LAB BLOOD ADD-ON [facility] [address] [place] [address], [facility] [place] [address] * Transfuse Red Blood Cells : (11/15/2023 6:35 PM CDT) Only the most recent of4 resultswithin the time period is included. Madelyn Cesar D.O. BLOOD TRANSFUSION OR DERABLES * Testing Location (11/15/2023 11:09 AM CDT) Testing Location [facility] DEFAULT 11/15/2023 11:47 AM CDT [facility] Blood 11/15/2023 11:0 9 AM CDT 11/15/2023 11:47 AM CDT Sergio Raza M.D. LAB BLOOD BANK TEST ORDERABLES Performing Organization Address City/[facility]/ZIP Co de Phone Number [facility] [address] [place] [address], [place] [facility] [facility] [place] [address] [place] [address] * Coccyx-Wound Ostomy Image Exam (11/15/2023 10:40 [...] RAD IMAGI NG PROCEDURES Performing Organization Address City/[facility]/ZIP Co de Phone Number IIMS NA * ECG 12 Lead (11/15/2023 6:47 AM CDT) Ventricular Rate ECG/Min 65 BPM MUSE NM Interval 144 ms MUSE QRSD Interval 76 ms MUSE QT Interval 430 ms MUSE QTC Interval 447 ms MUSE P Bartlett -7 degrees MUSE R Bartlett 9 degrees MUSE T Wave Bartlett 19 degrees MUSE 11/15/2023 6:47 AM CDT [...] 80 bpm Reviewed by BETTY Powers Sylvie Wright, M.D. ECG ORD ERABLES [facility] Organization Address City/State/ZIP Co de Phone Number MUSE NA * [...] to determine due to color interference Specific Pearson SEE COMMENT 1.001 - 1.035 11/15/2023 8:03 AM CDT [facility] Comment:Unable to determine due to color interference Urobilinogen SEE COMMENT 0.2 - 1.0 mg/dL 11/15/2023 8:03 AM CDT [facility] Comment:Unable to determine due to color interference Urine (Urine, Midstream) 11/15/2023 6:25 AM CDT 11/15/2023 6:34 AM CDT Sylvie Wright M.D. LAB URI NE ORDERABLES Performing Organization Address City/[facility] Co de Phone Number [facility] [address] [place] [address] * (ABNORMAL) Microscopic Automated (11/15/2023 6:25 AM [...] LAB URI NE ORDERABLES Performing Organization Address City/[facility] Co de Phone Number [facility] [address] [place] [address] * Bacterial Culture, Aerobic + Susceptibility, Urine (11/15/2023 6:24 AM CDT) Only the most recent of3 resultswithin the time period is included. Urine Culture Urogenital microbiota, susceptibilities not performed per laboratory criteria. 11/16/2023 11:36 AM CDT [facility] Urine (Urine, Indwelling Catheter) 11/15/2023 6:24 AM CDT 11/15/2023 9:29 AM CDT Comment:Specimen Source Site : Urine Zachery Tanner APRN, C.N.P., M.S. LAB MICROBIOLOGY - GENERAL ORDERABLES [facility] [address] [place] [address], [facility] [place] [address] [place] [address] * CT Abdomen Pelvis without IV Contrast [...] Raza M.D. LAB BLOOD BANK TEST ORDERABLES [facility] [address] [place] [address], [facility] NPRG [facility] [address] [place] [address] * Type and Screen (with Reflex Antibody ID) (11/14/2023 11:09 AM CDT) Only the most recent of3 resultswithin the time period is included. ABO [...] Raza M.D. LAB BLOOD BANK TEST ORDERABLES [facility] [address] [place] [address], [facility] NPRG [facility] [address] [place] [address] * Heparin Anti-Xa Assay (09/14/2023 3:19 AM [...] Sumit Holbrook M.D. LAB BLOOD NON ADD-ON [facility] [address] [place] [address], [place] DTL [facility] [address] [place] [address] * IR Nephrostomy Tube Placement Left (09/13/2023 2:20 PM CDT) Anatomical Region Laterality Modality Genito Urinary, Vascular Int erventional RST LOS, Vascular Interventional ARZ LOS, Vascular Interventional FLA LOS Left X-Ray Angiography Impressions 09/13/2023 2:33 PM CDT Left 10 Eritrean percutaneous nephrostomy tube placement. EP Narrative 09/13/2023 [...] tract was further dilated and a 10 Eritrean nephrostomy tube was placed with loop formed [...] sedation timewas: 9 minutes. IMPRESSION: Left 10 Eritrean percutaneous nephrostomy tube placement. EP Latisha Whitehead [...] MICROBIOLOGY - GENERAL ORDERABLES Performing Organization Address City/[facility]/ZIP Co de Phone Number [facility] [address] [place], [place] [address] [place] [address] [address] [place] [address] * Gram Stain (09/13/2023 2:17 PM CDT) Gram Stain No organisms seen. White blood cells, Rare 09/13/2023 9:02 PM CDT DTL Fluid (Kidney, Left) 09/13/2023 2:17 PM CDT 09/13/2023 3:56 PM CDT Comment:Specimen Source Site : Fluid Latisha Whitehead M.D. LAB MICROBIOLOGY - GENERAL ORDERABLES Performing Organization Address City/[facility]/ZIP Co de Phone Number [facility] [address] [place], [place] [address] [place] [address] [address] [place] [address] * Fungal Culture, Routine (09/13/2023 2:17 PM CDT) Fungal Culture, Routine No growth after 24 days of incubation. 10/08/2023 1:02 AM CDT DTL Fluid (Kidney, Left) 09/13/2023 2:17 PM CDT 09/13/2023 3:56 PM CDT Comment:Specimen Source Site : Fluid Latisha Whitehead M.D. LAB MICROBIOLOGY - GENERAL ORDERABLES Performing Organization Address City/[facility]/ZIP Co de Phone Number [facility] [address] [place] [address], [facility] [address] [place] [address] * Bacterial Culture, Anaerobic + Susceptibility (09/13/2023 2:17 PM CDT) Bacterial Culture, Anaerobic + Susc No growth after 14 days of incubation. 09/27/2023 8:04 AM CDT DT Fluid (Kidney, Left) 09/13/2023 2:17 PM CDT 09/13/2023 3:56 PM CDT Comment:Specimen Source Site : Fluid Latisha Whitehead M.D. LAB MICROBIOLOGY - GENERAL ORDERABLES Performing Organization Address [facility] Co de Phone Number [facility] [address] [place], [place] [address] [place] [address] [address] [place] [address] * APTT (Activated Partial Thromboplastin Time) (09/13/2023 5:56 AM CDT) Only the most recent of8 resultswithin the time period is included. Activated Partial Thrombopl Time, P 35 25 - 37 sec 09/13/2023 7:14 AM CDT DT Blood (Blood, Venous) 09/13/2023 5:56 AM CDT 09/13/2023 6:53 AM CDT Sumit Holbrook M.D. LAB BLOOD ADD-ON Performing Organization Address City/[facility] Co de Phone Number [facility] [address] [place] [address], [facility] [address] [place] [address] * NM Kidney DMSA (09/12/2023 12:21 PM [...] reduced radiotracer uptake asdescribed. Js Yang M.D. [facility] NM PROCEDURES * US Urinary Bladder (09/10/2023 [...] URINE ORDERA BLES [facility] [address] [place] [address], [facility] [address] [place] [address] * (ABNORMAL) Dipstick, Urine (09/09/2023 11:28 AM [...] LAB URINE ORDERA BLES Performing Organization Address City/[facility]/ZIP Co de Phone Number [facility] [address] [place] [address], [facility] [address] [place] [address] * pH, Random, Urine (09/09/2023 11:28 AM CDT) pH, Random, U 6.3 4.5 - 8.0 09/09/2023 12:19 PM CDT DTL Urine 09/09/2023 11:2 8 AM CDT 09/09/2023 11:58 AM CDT Jeffery Church M.D. LAB URINE ORDERA BLES [facility] [address] [facility] [facility] [address] [place] [address] * (ABNORMAL) Microscopic Manual (09/09/2023 11:28 AM [...] URINE ORDERA BLES [facility] [address] [facility] [address] [place] [address] * (ABNORMAL) Gram Stain, Urine (09/09/2023 11:28 AM CDT) Source Urine, Urine, Straight Catheter 09/09/2023 11:58 AM CDT DTL Gram Stain, U Positive(A) Negative 09/09/2023 12:16 PM CDT DTL Comment: Few Gram-negative bacilli ? Yeast Urine 09/09/2023 11:2 8 AM CDT 09/09/2023 11:58 AM CDT Jeffery Church M.D. LAB URINE ORDERA BLES [facility] [address] DTL [facility] [address] [place] [address] * (ABNORMAL) Urinalysis, with Microscopic: Urine, Straight [...] 09/09/2023 1:02 PM CDT DTL Predicted Range 2480-57447 mg/24 h 09/09/2023 1:02 PM CDT DTL Comment Micro done on <2.5 mL 09/09/2023 12:27 PM CDT DTL Urine (Urine, Straight Catheter) 09/09/2023 11:28 AM CDT 09/09/2023 11:58 AM CDT Jeffery Church M.D. LAB URINE ORDERA [facility] [address] [place], [place] [address] [address] [place] [address] * US Kidneys Bilateral with Bladder (09/09/2023 [...] CDT Jeffery Church M.D. LAB BLOOD ADD-ON [facility] [address] [place] [address], [facility] [address] [place] [address] * Potassium (09/05/2023 4:56 AM CDT) Potassium, S 3.6 3.6 - 5.2 mmol/L 09/05/2023 5:49 AM CDT DTL Blood (Blood, Venous) 09/05/2023 4:56 AM CDT 09/05/2023 5:22 AM CDT Roxy Romero M.D. LAB BLOOD ADD-ON [facility] [address] [place] [address], [facility] [address] [place] [address] from Last 3 Months Advance Directives For more information, please contact: [phone] * Full Code (Latest Code Status on [...] Answer Comments Full Code: Discussed Care Teams Head Of Maintenance Relationship Specialty Start Date End Date Elsewhere, Pcp PCP - General Internal Medicine 08/13/23
--- OUTSIDE RECORDS SUMMARY | 2023-12-02 12:43 | XMS_ITS | Referral Summary ---
Author Organization [facility] Address [address] [place] [address] Care Team Providers Care System Auditor Name Role Phone Cesar Mccollum Primary Care Provider [phone] Allergies No known active allergies Medications Medication [...] on file Medical Devices Implanted Type Area Rail Car Repair Carman Device Identifier Shelf Expiration Date Model / Serial / Lot Stent Ureteral Polaris Ultra [id number] - [id number] Implanted:Qty : 1 on 02/08/2022 by Nicola Ware MD at [facility] Stent Right: Ureter [employer] [id number] 10/08/2024 [id number] Explanted Type Area Rail Car Repair Carman Device Identifier Shelf Expiration Date Model / Serial / Lot Stent Came Out Of The Right Ureter Explanted:Qty: 1 on 02/08/2022 by Nicola Ware MD at [facility] Right: Urethra Advance Directives For more information, please contact: [phone] Documents on File Type Date 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
--- OUTSIDE RECORDS SUMMARY | 2023-12-02 12:43 | XMS_ITS | Clinical Summary ---
Author Organization [facility] Address [address] [place] [id number] Care Team Providers Care Fountain Pen Nibs Inspector Name Role Phone Cesar Mccollum Primary Care Provider [phone] Allergies No known active allergies Medications Medication [...] this topic Medical Devices Implanted Type Area Operational Risk Consultant Device Identifier Shelf Expiration Date Model / Serial / Lot Stent Ureteral Polaris Ultra [id number] - [id number] Implanted:Qty : 1 on 02/08/2022 by Nicola Ware MD at [facility] Stent Right: Ureter [employer] [id number] 10/08/2024 [id number] Explanted Type Area Operational Risk Consultant Device Identifier Shelf Expiration Date Model / Serial / Lot Stent Came Out Of The Right Ureter Explanted:Qty: 1 on 02/08/2022 by Nicola Ware MD at [facility] Right: Urethra Advance Directives For more information, please contact: [phone] Documents on File Type Date Recorded 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
--- OUTSIDE RECORDS SUMMARY | 2023-12-02 12:44 | XMS_ITS | Encounter Summary ---
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 [address] [place] [phone] [facility] Region Referral ID Status Reason Start Date Expiration Date V isits Requested Visits Authorized [id number] Authorized 11/09/2023 05/10/2025 1 1 * Outpatient (Routine) - Authorized Specialty Diagnoses / Procedures Referred By Contac t Referred To Contact Diagnoses Retention Urinary Chronic Procedures URO Urethral cath change (UCC) Burke Strauss M.D. [address] [place] [phone] [facility] Region Referral ID Status Reason Start Date Expiration Date V isits Requested Visits Authorized [id number] Authorized 11/09/2023 11/08/2024 15 15 Reason for Visit * Reason Comments Consult Discuss catheter thomas nges * Appointment Request (Routine) - Closed Specialty Diagnoses / Procedures Referred By Leyla rosenthal Referred To Contact Urology Referral ID Status Reason Start Date Expiration Date Visits Re quested Visits Authorized [id number] Closed 10/27/2023 10/26/2024 1 1 Encounter Details Date Type Department Care Team (Late st Contact Info) Description 11/09/2023 11:00 AM CDT Office Visit Department of Urology in [place], [place] [address] [place] [phone] Burke Strauss M.D. [address] [place] [phone] Primary Malignant Neoplasm Of Prostate (HCC) (Primary Dx); Retention Urinary Chronic; Hematuria Gross Discharge Disposition: Home or Self Care Social History Tobacco Use Types Packs/Day Years Used Date Smoking Tobacco: Never Smokeless Tobacco: Never [facility] PeopleJarities Answer Date Recorded In the past 12 months has [facility] electric, gas, oil, or water [employer] threatened to shut off services in your [...] ILLNESS Patient presents to establish care from [facility]. He has multiple urologic issues including [...] the past few days. Original plan from [facility] was to exchange his left nephrostomy tube in 3 months, due 12/14/2023. He reports getting good output from the left neph tube without hematuria. His radiation cystitis, radiation proctitis and sacral ulcer currently being treated with hyperbaric oxygen therapy through the [facility] in [facility]. He has completed 19 of 45 planned treatments and expects to finish that course in early December. Metastatic prostate cancer is being managed by [facility], Dr. Mireya Tan. Release of [...] an antegrade nephrogram through Interventional Radiology in [place] prior to nephrostomy tube removal. documented in this encounter Plan of Treatment Upcoming Encounters Date Type Department Care Team (Latest Contact Info) Description 12/07/2023 10:15 AM CDT Procedure visit Department of Urology in [address] [phone] Burke Strauss M.D. [address] [place] [phone] Discharge Disposition: Home or Self Care 12/07/2023 10:30 AM CDT Office Visit Department of Urology in [address] [phone] Burke Strauss M.D. 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
--- OUTSIDE RECORDS SUMMARY | 2023-12-02 12:44 | XMS_ITS | Encounter Summary ---
Author Organization [facility] Address [address] [place] [address] Care Team Providers Care Cell Phone Repair Technician Name Role Phone Elsewhere, Pcp Primary Care Provider Unavailabl e Reason for Referral * Outpatient (Routine) - Authorized Specialty Diagnoses / Procedures Referred By Contac t Referred To Contact Diagnoses Hematuria Gabe Neal M.D. [address] [place] [address] Referral ID Status Reason Start Date Expiration Date V isits Requested Visits Authorized [id number] Authorized 11/17/2023 05/18/2025 1 1 Encounter Details Date Type Department Care Team (Late st Contact Info) Description 11/14/2023 11:38 PM CDT - 11/17/2023 3:55 PM CDT Hospital Encounter [facility], Fifth Floor [address] [place] [address] Eliceo Guerrier M.D., Ph.D. [address] [place] [address] Sylvie Álvarez M.B.B.S., M.D. [address] [place] [address] Rashawn Vences M.D. [address] [place] [address] Gabe Buckley M.D. [address] [place] [address] Smith Peter (Primary Dx) Discharge Disposition: Home-Health Care Svc Social History Tobacco Use Types Packs/Day Years Used Date Smoking Tobacco: Never Smokeless Tobacco: Never [facility] Utilities Answer Date Recorded In the past 12 months has [facility] [employer], gas, oil, or water Layar threatened to shut off services in your [...] your living situation today? I have a [facility] place to live 11/15/2023 Sex and [...] DISCHARGE SUMMARY BRIEF OVERVIEW Discharge Hospital: Hospital: [facility] Discharge Provider: Gabe Buckley M.D. Primary Care Providers: Dr. 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 Cesar Mccollum to discuss restarting OUTPATIENT FOLLOW UP Scheduled Appointments 12/07/2023 10:15 AM [facility] MULTI SPECIALTY NURSE 01 NPNC; URO NURSE 01 NPNC Urology 12/07/2023 10:30 AM Bruke Strauss M.D. Urology For appointment details refer [...] filter and chronic pressure wounds presented to [place] 11/14/23 gross hematuria including around his indwelling [...] Dr. Gabe Rivas DO. PGY-1 [facility] Family Medicine Residency [place] Associated attestation - Gabe Buckley M.D. - [...] Take 10 mg by mouth every morning. trospium (SANCTURA) 20 mg tablet Take 1 tablet (20 mg total) by mouth 2 (two) times a day as needed (bladder spasms). please stop 24 hours prior to catheter removal 20 tablet 08/26/2023 11/30/2023 documented as of this encounter Progress Notes * Chary Romero L.I.C.SJonahW. - 11/17/2023 2:18 PM CDT SUBJECTIVE Patient is a 83 y.o. male who was admitted to [facility] 11/14/2023 due to Hematuria Gross [R31.0]. Patient was accompanied by son, Kar. This data analyst report writer finalized arrangements for resumption of home health care services. 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 INTERVENTION This data analyst report writer sent a service reconnection, including resumption of care order, to resumption of home health care services to [facility] as the fax number matches the fax number provided by intake earlier in the week. PLAN Patient will discharge home today with family and resumption of home health care services. * Nereida Bolton, LARRYN, LD - 11/17/2023 [...] Muscle Mass: Normal Fluid Accumulation: Absent Reduced Internet Sourcer Strength: Not applicable This is in the [...] Nutrition Monitoring/Evaluation Monitoring: Meals/Supplement Intake, Nausea/Vomiting/Diarrhea * Chayr Romero L.I.C.S.W. - 11/16/2023 10:53 AM CDT SUBJECTIVE Patient is a 83 y.o. male who was admitted to [facility] 11/14/2023 due to Hematuria Gross [R31.0]. Patient was accompanied by daughter (Mindy) and son (Kar). This data analyst report writer continues to assist in home health care reconnection. 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 INTERVENTION Patient's daughter, Mindy, provided this data analyst report writer with contact information for Doreen Javier, nurse healthcare social worker for [facility]; [phone]. This data analyst report writer left Doreen a voicemail, requesting a return [...] bag -monitor CMP for kidney function -continue TANKAGE GRINDER tamsulosin -continue TANKAGE GRINDER enzalutamide -urine culture, per urology # Coronary artery disease without angina pectoris, status post 6 stents # History of DVTs, status post IVC filter # Hyperlipidemia Is on both Plavix and Xarelto at home. -start Xarelto 11/16/2023 so response can be monitored while hospitalized -continue TANKAGE GRINDER amlodipine -continue TANKAGE GRINDER rosuvastatin -continue TANKAGE GRINDER metoprolol # Chronic Pressure Wound, Coccyx -continue wound care -offloading as much as possible Non-severe (moderate) Malnutrition (11/15/23) The patient meets the ASPEN Criteria of malnutrition based on: Energy Intake: Less than 75% of estimated energy requirement for greater than or equal to 1 month Interpretation of Weight Loss: 7.5% 3 months Body Fat: Normal Muscle Mass: Normal Fluid Accumulation: Absent Reduced Internet Sourcer Strength: Not applicable This is in the [...] Gabe Buckley M.D. Candelaria Rivas DO. PGY-1 [facility] Family Medicine Residency [place] Associated attestation - Gabe Buckley M.D. - 11/16/2023 6:25 PM CDT I saw and evaluated the patient, participating in the henderson portions of the service. I reviewed the resident/fellow???s note. I agree with the resident/fellow???s findings and plan. 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 Medicine Service * Candelaria Rivas D.O. - [...] recommendations -monitor CMP for kidney function -continue TANKAGE GRINDER tamsulosin -continue TANKAGE GRINDER enzalutamide -urine culture, per urology # Coronary artery disease without angina pectoris, status post 6 stents # History of DVTs, status post IVC filter # Hyperlipidemia Is on both Plavix and Xarelto at home. Urology recommendations on restarting blood thinners. -may consider restarting one or both on 11/16/2023 so response can be monitored while hospitalized -continue TANKAGE GRINDER amlodipine -continue TANKAGE GRINDER rosuvastatin -continue TANKAGE GRINDER metoprolol # Chronic Pressure Wound, Coccyx -continue wound care -offloading as much as possible Non-severe (moderate) Malnutrition (11/15/23) The patient meets the ASPEN Criteria of malnutrition based on: Energy Intake: Less than 75% of estimated energy requirement for greater than or equal to 1 month Interpretation of Weight Loss: 7.5% 3 months Body Fat: Normal Muscle Mass: Normal Fluid Accumulation: Absent Reduced Internet Sourcer Strength: Not applicable This is in the [...] Placement Date/Time: 11/14/23 1235 Placed by: Faith Whalne RN Bladder Irrigation Type: Continuous Catheter Type: [...] Rashawn Vences M.D. Candelaria Rivas DO. PGY-1 [facility] Family Medicine Residency [place] Associated attestation - Rashawn Vences M.D. - [...] other issues. He showed up in the [facility] room yesterday with complaints of a [...] encounter H&P Notes * Sylvie Álvarez M.B.B.S., MPerla. - 11/15/2023 12:26 AM CDT Date of [...] and visits for hematuria. Patient presented at [place] yesterday because of bleeding around his [place] [...] vomiting, no abdominal pain. Patient presented at [facility] where urology was contacted, manual bladder irrigation [...] anemia, hemoglobin now 8.2. Patient presented to [place] ED because of bleeding around his [place] catheter. At [place], patient had manual bladder irrigation with normal [...] CDTAssociated Order(s): Dietitian consult (hospital); Dietitian Consult ([facility]) Dietitian Consult (Hospital) Referring Provider: Bolivar Carvalho Dietitian consult (hospital) Referring Provider: Bolivar Carvalho Clinical Note Types: Initial Assessment/Consult NUTRITION VISIT [...] had lost 28lbs during his stay in [place] as he was NPO for12 days then [...] Muscle Mass: Normal Fluid Accumulation: Absent Reduced Internet Sourcer Strength: Not applicable This is in the [...] 84.1 kg BMI (Calculated): 26.6 kg/m?? % [place] Body Weight: 111 % IBW Adjusted Body [...] Monitoring: Meals/Supplement Intake, Nausea/Vomiting/Diarrhea * Chary Romero, SiddharthaIJonahCJonahSJonahWJonah - 11/15/2023 11:34 AM CDTAssociated Order(s): IP CONSULT TO CARE MANAGEMENT; IP CONSULT TO CARE MANAGEMENT Psychosocial Assessment SUBJECTIVE Assessment Information Referral Source: Provider/Service Referral Reason: Psychosocial assessment, Discharge Planning, Other (comment) Primary Language: Belarusian Clerk Checker Services Used: No Sexuality/Pronoun: / Person(s) present [...] Neoplastic Disease #4 Atherosclerotic Heart Disease Of [place] Coronary Artery Without Angina Pectoris #5 Deficiency Iron #6 Hyperlipidemia #7 Hypertension Essential Primary #8 Senior Care Current Use Of Other Agents Affecting Estrogen Receptors And Estrogen Levels #9 Radiation Therapy Proctitis #10 Inferior Vena Cava Filter #11 Senior Care (Current) Anticoagulant Treatment Social History Marital Status: Family / Household: Lives with and son, Gavin. Has another son (Kar) and a daughter (Mindy). Support System: spouse and children Spirituality/Holiness/Cultural Factors: None History: No Highest Level of [...] Cooperative, Oriented Communication: Talks, Understands speaking, Understands Belarusian Shopping: Appropriate to age/development Medication Management: Independent Housekeeping: Appropriate to age/development Meal Prep: Appropriate to age/development Assistive Devices: Eyeglasses, Hearing aid(s) Agency Name: [facility] Services Provided: [facility] once weekly for wound care, PT, social work, DarwinRN healthcare social worker Transportation: Support from family Baseline Services/Resources Primary care clinic and provider: ELSEWHERE, PCP Anticipated Needs Functional Status: Tasks appropriate to patient's age/development, Transportation use (drive car, use taxi/bus) Assistive Devices: Eyeglasses, Hearing aid(s) Services/Resources: Home health Agency Name: [facility] Provided: [facility] once weekly for wound care, PT, social work, Makenzie healthcare social worker Does the patient need discharge transport arranged?: No Anticipated Discharge Destination: Home-Health Care Svc OBJECTIVE Substance Abuse no symptoms Mental Health Mental Health History: Patient reports no mental health history Patient reports no current concerns Mental Health Treatment History No history of Psychiatric Treatment noted Suicide Risk and Safety Risk Assessment: C-SSRS Short Version: [place] Suicide Severity Rating Scale (Do this one [...] a wound clinic the other day. This data analyst report writer spoke to intake with [facility] however the only information provided is that patient is served by the [facility] location and receives retirement, physical therapy, and social work and the fax number for discharge paperwork was provided. Interventions Psychosocial assessment completed. Provided supportive services. Provided education regarding the role of social work. Plan It is anticipated patient will return home with family and resume services through [facility]. Martha Gardiner 11/15/2023 * Jerri Toledo R.N., [place], [facility] - 11/15/2023 10:54 AM CDTAssociated Order(s): IP [...] and visits for hematuria. Patient presented at [place] yesterday because of bleeding around his [place] [...] vomiting, no abdominal pain. Patient presented at [place] where urology was contacted, manual bladder irrigation with normal saline was performed, and patient was started on CBI. Patient transferred to [place] for further management. WOUND ASSESSMENT: Wound Type: Pressure Injury IP Pressure Injury Staging: Stage 3 Wound Location: Coccyx Wound Orientation: Mid Wound Tunnel/Induration: Length 1 cm, Width 0.5 cm, and Depth 0.3 cm. Wound Bed Tissue: Red and Granulation tissue 100% Leslee-Wound Skin: Blanchable erythema, Maceration, and Chisana PLAN: COCCYX: DAILY 1. Cleanse wound with [...] limit sliding down in chair. Please contact [facility] RNs if you have any question or concerns regarding wound care. Jerri Toledo R.N., LYNNE at [phone] Starla Méndez R.N., CWCN at [phone] * Zachery Tanner, ARUN, C.N.P., M.S. - 11/15/2023 8:06 AM CDTAssociated [...] follows with Medical Oncology Dr. Tan in [place], [place]. Right hydronephrosis and right atrophic kidney [...] 08/30. Currently undergoing outpatient hyperbaric O2 in [facility]. Mr. Vega currently admitted to [facility] in the setting of recurrent gross hematuria. He wasseen in evaluation at [facility] Emergency Department in the setting of concern [...] in comparison to historical imaging. Ultimately [address] catheter was placed and patient was hand irrigated and initiated on CBI.Patient was transferred to [facility] for ongoing management. Urinalysis 11/15/2023 with greater [...] undergoing outpatient HBO (hyperbaric oxygenation therapy) in [facility]. Recommend to continue HBO in the outpatient [...] hematuria. Outpatient appointment scheduled on 12/07/2023 in [place] with Urology. Could consider discussion about catheter removal/formal voiding trial in the outpatient setting as to limit catheter irritation/potential infection risk contributing to hematuria. Significant pyuria on urinalysis in the setting of his gross hematuria would recommend urine culture. 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 Tan in [place], [place]. Per subjective report today undetectable PSA. [...] discussed with Dr. Valdez. Zachery Tanner APRN [employer]NAL[employer] MANAGER Associated attestation - Manav Valdez M.D. - [...] Summary: Pt is a direct admit from [place] ED. He has chronic indwelling catheter, with prostate cancer history. He noticed urine was bloody red. While being seen in [place], 3 waycatheter was inserted and CBI started. Pt arrives with pink-peach tinged urine with a few small redspecks/ few small blood clots. CBI maintained at moderate rate. Large amount emptied from catheter bag. Pt denies pain. Metoprolol, flomax, and crestor given with sips of water, then patient has beenNPO since 99. IV fluids started NS at 50 ml/hr. [...] filter and chronic pressure wounds presented to [place] 11/14/23 gross hematuria including around his indwelling [...] CDT Procedure visit Department of Urology in [address] [address] Burke Strauss M.D. [address] [place] [phone] Discharge Disposition: Home or Self Care 12/07/2023 10:30 AM CDT Office Visit Department of Urology in [address] [address] Burke Strauss M.D. [address] [place] [phone] Discharge Disposition: Home or Self Care Pending Results Name Type Priority Associated Diagnoses Date /Time Prepare Red Blood Cells, 1 Units Blood Bank Routine 11/14/2023 11:09 AM CDT Scheduled Referrals Name Type Priority Associated Diagnoses Orde r Schedule Non-[facility] referral Outpatient Referral Routine Hematuria Gross Ordered: [...] CDT Candelaria Rivas D.O. LAB BLOOD ADD-ON [facility] [address] [place] [address], [facility] MKTO [facility] [place] [address] * (ABNORMAL) Basic Metabolic Panel (11/17/2023 7:24 [...] CDT Candelaria Rivas D.O. LAB BLOOD ADD-ON [facility] [address] [place] [address] * Glucose, POCT (11/17/2023 6:45 AM CDT) Glucose, POCT, B 107 70 - 140 mg/dL 11/17/2023 6:45 AM CDT MKTO Blood 11/17/2023 6:45 AM CDT 11/17/2023 7:03 AM CDT Generic Rals LAB POCT ORDERABLES- MANUAL Performing Organization Address City/[facility] Co de Phone Number [facility] [address] [place] [phone] * (ABNORMAL) Hemoglobin (11/16/2023 4:43 PM CDT) Hemoglobin 9.2(L) 13.2 - 16.6 g/dL 11/16/2023 5:13 PM CDT MKTO Blood (Blood, Venous) 11/16/2023 4:43 PM CDT 11/16/2023 5:10 PM CDT Madelyn Cesar D.O. LAB BLOOD ADD-ON [facility] [address] [place] [address] * (ABNORMAL) Comprehensive Metabolic Panel (11/16/2023 6:25 [...] CDT Rashawn Vences M.D. LAB BLOOD ADD-ON [facility] [address] [place] [address], [facility] MKTO [facility] in [place] [address] [place] [address] * (ABNORMAL) CBC with Differential, Blood (11/16/2023 [...] CDT Rashawn Vences M.D. LAB BLOOD ADD-ON [facility] [address] [place] [address], [facility] MKTO [facility] in [place] [address] [place] [address] * Transfuse Red Blood Cells : (11/15/2023 6:35 PM CDT) Madelyn Cesar D.O. BLOOD TRANSFUSION OR DERABLES * Transfuse Red Blood Cells : , 1 Units (11/15/2023 6:35 PM CDT) Madelyn Cesar D.O. BLOOD TRANSFUSION OR DERABLES * (ABNORMAL) Comprehensive Metabolic Panel (11/15/2023 7:31 AM CDT) [facility] Potassium, P 4.2 3.6 - 5.2 mmol/L [...] Sylvie Wright M.D. LAB BLO OD ADD-ON [facility] [address] [place] [address], [facility] [place] [address] * (ABNORMAL) CBC with Differential, Blood (11/15/2023 [...] Sylvie Wright M.D. LAB BLO OD ADD-ON [facility] [address] [place] [address], [facility] [place] [address] * ECG 12 Lead (11/15/2023 6:47 AM CDT) Ventricular Rate ECG/Min 65 BPM MUSE [place] Interval 144 ms MUSE QRSD Interval 76 ms MUSE QT Interval 430 ms MUSE QTC Interval 447 ms MUSE P [place] -7 degrees MUSE R [place] 9 degrees MUSE T Wave [place] 19 degrees MUSE 11/15/2023 6:47 AM CDT [...] M.D. ECG ORD ERABLES Performing Organization Address City/[facility]/ZIP Co de Phone Number MUSE NA * [...] LAB URI NE ORDERABLES Performing Organization Address [facility] Co de Phone Number [facility] [address] [place] [phone], [facility] MKTO [facility] in [place] [address] [place] [address] * (ABNORMAL) Urinalysis with Microscopic if Indicated [...] to determine due to color interference Specific [place] SEE COMMENT 1.001 - 1.035 11/15/2023 8:03 AM CDT MKTO Comment:Unable to determine due to color interference Urobilinogen SEE COMMENT 0.2 - 1.0 mg/dL 11/15/2023 8:03 AM CDT MKTO Comment:Unable to determine due to color interference Urine (Urine, Midstream) 11/15/2023 6:25 AM CDT 11/15/2023 6:34 AM CDT Sylvie Wright M.D. LAB URI NE ORDERABLES Performing Organization Address [facility] Co de Phone Number [facility] [address] [place] [address] * Bacterial Culture, Aerobic + Susceptibility, Urine (11/15/2023 6:24 AM CDT) Urine Culture Urogenital microbiota, susceptibilities not performed per laboratory criteria. 11/16/2023 11:36 AM CDT [facility] Urine (Urine, Indwelling Catheter) 11/15/2023 6:24 AM CDT 11/15/2023 9:29 AM CDT Comment:Specimen Source Site : Urine Zachery Tanner APRN, C.N.P., M.S. LAB MICROBIOLOGY - GENERAL ORDERABLES Performing Organization Address [facility] Co de Phone Number [facility] [address] [place] [address] documented in this encounter Visit Diagnoses Diagnosis Hematuria Gross- Primary Hematuria Gross Primary Malignant Neoplasm Of Prostate (HCC) Anemia In Neoplastic Disease Primary Substance Abuse Counselor Current Use Of Other Agents Affecting Estrogen Receptors And Estrogen Levels Hypertension Essential Primary Hyperlipidemia Deficiency Iron Radiation Therapy Proctitis Atherosclerotic Heart Disease Of [place] Coronary Artery Without Angina Pectoris Inferior Vena Cava Filter Primary Substance Abuse Counselor (Current) Anticoagulant Treatment documented in this encounter [...] Dorothea Lynch R.N.) 08 (Given - Provider: Bety Wu M.S.Tulio, R.N.) enzalutamide capsule 120 mg (Xtandi) 120 [...] bring in.) 0801 (Not Given - Provider: Jose Roberto Jolly.S.Tulio, R.N. - Reason: Medication not available) metoprolol succinate 24 hr tablet 50 mg (Toprol XL) 50 mg, oral, Daily at bedtime, First dose on Tue11/15/23 at 0030, Do NOT crush or chew. Tablet may be split on score if needed. 0102 (Given - Provider: Nuvia Ocasio R.N.)2010 (Given - Provider: Mariajose Berry RJonahN.) 2028 (Given - Provider: Nahed Dozier RJonahN.) rivaroxaban tablet 10 mg (Xarelto) 10 mg, [...] Dorothea Lynch R.N.) 08 (Given - Provider: Arik Jolly, R.N.) tamsulosin 24 hr capsule 0.4 mg [...] on Tue11/15/23 at 0045, For 12 hours 010 (New Bag - Provider: Nuvia Ocasio R.N.)1500 [...] R.N.) documented in this encounter Care Teams Cell Phone Repair Technician Relationship Specialty Start Date End Date Elsewhere, Pcp PCP - General Internal Medicine 08/13/23 documented as of this encounter
--- OUTSIDE RECORDS SUMMARY | 2023-12-02 12:44 | XMS_ITS | Encounter Summary ---
Author Organization [facility] Address [address] [place] [address] Care Team Providers Care Ground Defence Officer Name Role Phone Elsewhere, Pcp Primary Care Provider Unavailabl e Reason for Visit * Reason Comments Catheter Care Plan Encounter Details Date Type Department Care Team (Late st Contact Info) Description 10/14/2023 Documentation Department of Urology in [place], [place] [address] [place] [phone] Paula Hernandez M.D. [address] [place] [phone] Catheter Care Plan Social History Tobacco Use [...] Care Plan - Catheter Exchange General Information [facility]/ Patient Name: Kalen Vega Date: 1940 Health Care Provider(s) Medical Provider(s) Cesar Mccollum M.D. Institution: No address on file [place], [place] Urology Provider(s) Chief Urology residents Last seen by Paula Hernandez M.D. Institution: [facility] Treatment Summary Diagnosis Hydronephrosis; hematuria; metastatic prostate cancer; radiation cystitis Treatment Surgery []Yes [x] No Surgery Date(s) Surgical Procedure/Location/Findings Current Treatment Information/Follow-up Care Plan Frequency of Catheter Changes (i.e. every 4 weeks) every 4 weeks Catheter Information Type: Coude red rubber Size:20F Reference #: [id number] Catheter Prescription Expires NA Last seen by [...] new, persistent, or worsening symptom Prepared By: Ashlegih Ferreira R.N. Date: 10/14/2023 documented in this encounter Plan of Treatment Upcoming Encounters Date Type Department Care Team (Latest Contact Info) Description 12/07/2023 10:15 AM CDT Procedure visit Department of Urology in [place] [address] [place] [phone] Burke Strauss M.D. [address] [place] [phone] Discharge Disposition: Home or Self Care 12/07/2023 10:30 AM CDT Office Visit Department of Urology in [place] [address] [place] [address] Burke Strauss M.D. [address] [place] [phone] Discharge Disposition: Home or Self Care documented as of this encounter Visit Diagnoses Not on filedocumented in this encounter Care Teams Ground Defence Officer Relationship Specialty Start Date End Date Elsewhere, Pcp PCP - General Internal Medicine 08/13/23 documented as of this encounter
--- OUTSIDE RECORDS SUMMARY | 2023-12-02 12:44 | XMS_ITS | Encounter Summary ---
Author Organization [facility] Address [address] [place] [address] Care Team Providers Care Kosher Sealer Name Role Phone Elsewhere, Pcp Primary Care Provider Unavailabl e Reason for Visit * Reason Comments Urinary Catheter Change Pt reports leaki ng from part of three way catheter, believes he may have nicked it with a scissors. Encounter Details Date Type Department Care Team (Late st Contact Info) Description 11/30/2023 6:44 PM CDT - 11/30/2023 8:06 PM CDT Emergency [facility] [address] [place] [phone] Carmen Cherry M.D., M.P.H. [address] [place] [phone] Leakage Of Other Urinary Catheter Initial (HCC) [...] [facility] place to live 11/15/2023 Sex and [...] oz) 11/30/2023 5:38 P M CDT Height - - Body Mass Index 25.7 11/14/2023 11:59 PM CDT documented in this encounter Discharge Instructions * Discharge Instructions* Carmen Cherry M.D., M.P.H. - 11/30/2023 6:44 PM CDT Return to the emergency department if concerned your catheter is not working or concerned for worsening condition. You should continue to seek regular catheter changes as previously described by yourprimary care team. * Attachments The following attachments cannot be sent through Care Everywhere. * Indwelling Urinary Catheter Care Adult [id number] ([place]) documented in this encounter Medications at Time [...] every morning. documented as of this encounter ED Notes * Carmen Cherry M.D., M.P.H. - 11/30/2023 7:58 PM CDT SUBJECTIVE CHIEF COMPLAINT/REASON FOR VISIT Urinary Catheter Change (Pt reports leaking from part of three way catheter, believes he may have nicked it with a scissors. ) HISTORY OF PRESENT ILLNESS History provided by: Patient This is a very pleasant 83-year-old male with a history of prostate cancer and chronic indwelling catheter who presents to the Emergency Department with concern of possibly having a cut to his catheter that has leaking urine. His son was trying to help him with a stop her he had on the catheter that was taped on as it was not fitting well and when he was trying to cut off the tape, may have pokeda hole through the catheter site. He has no pain. No nausea or vomiting. No fever chills. REVIEW OF SYSTEMS OBJECTIVE Initial Vitals [11/30/23 1736] Temperature 36.9 ??C Pulse Rate 70 Heart Rate Resp Rate 17 Blood Pressure 126/69 SpO2 99 % Pain Score PHYSICAL EXAMINATION Abdomen is soft, nontender, nondistended, no guarding or rebound ASSESSMENT/PLAN Assessment and Plan This is an 83-year-old male who presents to the Emergency Department with a catheter problem. Uro jet was ordered for pain control and three-way catheter was replaced. There is no complications. Patient was no pain or fever and doubt infection at this time. Will discharge home with follow up with Urology next week as planned. Return precautions discussed. Patient was in his family member were in agreement with this plan.. DIFFERENTIAL DIAGNOSES Catheter problem, UTI, urinary retention, obstruction, trauma, amongst others. I reviewed the following external records: inpatient records and primary care records. Final Diagnoses: as of 11/30/231957 Leakage Of Other Urinary Catheter Initial (HCC) Carmen Cherry M.D., M.P.H. 11/30/232000 documented in this encounter Plan of Treatment Upcoming Encounters Date Type Department Care Team (Latest Contact Info) Description 12/07/2023 10:15 AM CDT Procedure visit Department of Urology in [address] [phone] Burke Strauss M.D. [address] [place] [phone] Discharge Disposition: Home or Self Care 12/07/2023 10:30 AM CDT Office Visit Department of Urology in [address] [phone] Burke Strauss M.D. [address] [place] [phone] Discharge Disposition: Home or Self Care documented as of this encounter Visit Diagnoses Diagnosis Leakage Of Other Urinary Catheter Initial (HCC)- Primary documented in this encounter Active and Recently Administered Medications Times are shown in CDT. Scheduled Medication Order 11/28/2023 11/29/2023 11/30/2023 lidocaine HCL 2 % topical jelly 1 Application (Glydo) 1 Application, urethral, Once, On Tue11/30/23 at 1845, For 1 dose, Urinary System Administration: Surface [...] swab. MAX 600 mg per 12-hour period. 1845 (Due) documented in this encounter Care Teams Kosher Sealer Relationship Specialty Start Date End Date Elsewhere, Pcp PCP - General Internal Medicine 08/13/23 documented as of this encounter
--- OUTSIDE RECORDS SUMMARY | 2023-12-02 12:44 | XMS_ITS ---
Author Organization [facility] Address [address] [place] [address] Care Team Providers Care Blueprint Trimmer Name Role Phone Unavailable Unavailable Unavailable Surgery Details Not on file Complications Check Surgery Details section. Procedure Estimated Blood Loss Check Surgery Details section. Procedure Findings Check Surgery Details section. Procedure Specimens Taken Check Surgery Details section.
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
--- OUTSIDE RECORDS SUMMARY | 2023-12-02 12:44 | XMS_ITS ---
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 11/15/2023 Overview (11/15/2023): stent placements 2017 Complication Procedure Initial 11/15/2023 Deficiency Iron 11/15/2023 Hyperlipidemia 11/15/2023 Hypertension Essential Primary 11/15/2023 Rubber Goods Inspector Tester Current Use Of Oth er Agents Affecting Estrogen Receptors And Estrogen Levels 11/15/2023 Presence Of Other Vascular Implants And Grafts 0 11/15/2023 Other Specified Disorders Of Bladder 11/15/2023 Other Retention Of Urine 11/15/2023 PreDiabetes 11/15/2023 Presence Of Urogenital Implants 11/15/2023 Unspecified Complication Of Genitourinary Prosthetic Device Implant And Graft Initial 11/15/2023 Inferior Vena Cava Filter 11/15/2023 Rubber Goods Inspector Tester (Current) Anticoagulant Treatment 09/2023 Presence Of Other [...] On Elapsed Days Session Dose Total Dose [id number] 04/28/2020 32 300 cGy 6,000 cGy Lifetime Dose Tracking * Chemical Lifetime Dose Automatic Entry Manual Entr y Radiation 20.4 mGy 20.4 mGy 0 mGy Fluoro Time 2.005 minutes 2.005 minutes 0 minutes DAP (uGy-m2) 479.6 uGy-m2 479.6 uGy-m2 0 uGy-m2 Resolved Problems Problem Noted Date Diagnosed Date Resolved Date Hematuria Gross 08/31/2023 11/17/2023
--- OUTSIDE RECORDS SUMMARY | 2023-12-02 12:44 | XMS_ITS | Referral Summary ---
Author Organization [facility] Address [address] [place] [address] Care Team Providers Care Industrial Boilermaker Name Role Phone Elsewhere, Pcp Primary Care Provider Unavailabl e Source Comments Patient records contain information from all sites at [facility]. For routine questions regarding patient records, call [phone] during business hours, M-F 8:00 AM - 5:00 PM Central Time. Record requests for emergency care only can be directed to [phone] at any time.[facility] Encounters Date Type Department Care Team Description 11/30/2023 6:44 PM CDT - 11/30/2023 8:06 PM CDT Emergency [facility] [address] [place] [phone] Carmen Cherry M.D., M.P.H. Leakage Of Other Urinary Catheter Initial (HCC) (Primary Dx) Discharge Disposition: Home or Self Care 11/14/2023 11:38 PM CDT - 11/17/2023 3:55 PM CDT Hospital Encounter [facility], [facility], Fifth Floor [address] [place] [address] Eliceo Guerrier M.D., Ph.D. Sylvie Álvarez M.B.B.S., M.D. Pokhai, Gabriel, M.D. Burkland, Carl B, M.D. Hematuria Gross (Primary Dx) Discharge Disposition: Home-Health Care [facility] 11/15/2023 10:40 AM CDT Ancillary Procedure Department of Wound Ostomy 11/14/2023 Documentation Department of Urology in [address] [phone] Sowmya Aviles APRN, C.N.PJonah, M.S.N. 11/14/2023 Intake [facility] 11/14/2023 10:44 AM CDT - 11/14/2023 10:23 PM CDT Emergency [facility] [address] [place] [phone] Sergio Raza M.D. Hematuria (Primary Dx); Malfunction Mechanical Urethral Catheter Initial (HCC) Discharge Disposition: Acute Care Hospital 11/10/2023 Clinical Communication Department of Urology in [address] [phone] Burke Strauss M.D. Oncology records request 11/09/2023 Clinical Communication Department of Urology in [address] [phone] Burke Strauss M.D. 11/09/2023 11:00 AM CDT Office Visit Department of Urology in [address] [phone] Burke Strauss M.D. Primary Malignant Neoplasm Of Prostate (HCC) (Primary Dx); Retention Urinary Chronic; Hematuria Gross Discharge Disposition: Home or Self Care 10/27/2023 Clinical Communication Department of Urology in [address] [phone] Burke Strauss M.D. 10/14/2023 Documentation Department of Urology in [place], [place] [address] [place] [phone] Paula Hernandez M.D. Catheter Care Plan 10/14/2023 1:00 PM CDT Procedure visit Department of Urology in [place], [place] [address] [place] [phone] Paula Hernandez M.D. Reichmann, Lynne G, R.N. Hematuria 09/27/2023 Clinical Communication Department of Urology in [address] [phone] Paula Hernandez M.D. 09/21/2023 Clinical Communication Department of Urology in [place], [place] [address] [place] [phone] Paula Hernandez M.D. 09/16/2023 Clinical Communication Department of Urology in [place], [place] [address] [place] [phone] Provider, Unknown follow up questions 09/16/2023 Orders Only Department of Urology in [place] [address] [place] [phone] Paula Hernandez M.D. Hematuria Gross (Primary Dx) 09/15/2023 Clinical Communication [facility] [address] [place] [phone] Yasmine Loco 09/09/2023 7:24 AM CDT - 09/15/2023 5:28 PM CDT Hospital Encounter [facility], [facility], [facility], Sixth Floor [address] [place] [phone] Gerri Merrill M.D., Ph.D. Sumit Holbrook M.D. Hematuria (Primary Dx) Discharge Disposition: Home or Self Care 09/09/2023 12:10 PM CDT Ancillary Procedure Department of Nursing 09/09/2023 Documentation Department of Urology in [place], [place] [address] [place] [phone] Ko Victoria M.D. 09/06/2023 Orders Only Section of Hyperbaric Medicine in [place], [place] [address] [place] [phone] iKra Ferraro APRN CJonahNJonahP., M.S.N. 09/06/2023 Clinical Communication [facility] [address] [place] [phone] ClaudyYasmine Jose Roberto 08/30/2023 7:35 PM CDT - 09/05/2023 4:09 PM CDT Hospital Encounter [facility], [facility], [facility], First Floor [address] [place] [phone] Kirstin Hughes M.D. Thompson, R. [place], M.D. 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 Current Use Of Oth er Agents Affecting Estrogen Receptors And Estrogen Levels 11/15/2023 Presence Of Other Vascular Implants And Grafts 0 11/15/2023 Other Specified Disorders Of Bladder 11/15/2023 Other Retention Of Urine 11/15/2023 PreDiabetes 11/15/2023 Presence Of Urogenital Implants 11/15/2023 Unspecified Complication Of Genitourinary Prosthetic Device Implant And Graft Initial 11/15/2023 Inferior Vena Cava Filter 11/15/2023 Domestic Freight Forwarder (Current) Anticoagulant Treatment 09/2023 Presence Of Other [...] Never Tobacco Cessation:Counseling Given: Not Answered [facility] [employer] Answer Date Recorded In the past 12 months has e Plan [employer] Funding, gas, oil, or water [employer] threatened to shut off services in your [...] a [facility] place to live 11/15/2023 Sex and [...] CDT Procedure visit Department of Urology in [place], [place] [address] [place] [phone] Burke Strauss M.D. [facility] [place] [phone] Discharge Disposition: Home or Self Care 12/07/2023 10:30 AM CDT Office Visit Department of Urology in [place], [place] [address] [place] [phone] Burke Strauss M.D. [address] [place] [phone] Discharge Disposition: Home or Self Care Medical Devices Implanted Type Area Epitaxial Reactor Technician Device Identifier Shelf Expiration Date Model / Serial / Lot Clp Hrzn Ti 6 Clp Lg Orng - [id number] Implanted:Qt y: 1 on 08/15/2023 by Boubacar Brock M.D. at [facility] Hardware e.g. pins/screws /rods [employer]dom[employer] [id number] 02/29/2028 [id number] / / [id number] Clp Hrzn Ti 6 Clp Lg Orng - [id number] Implanted:Qt y: 1 on 08/15/2023 by Boubacar Brock M.D. at [facility] Hardware e.g. pins/screws /rods [employer]dom[employer] [id number] 02/29/2028 [id number] / / [id number] Clp Hrzn Ti 6 Clp Monty - [id number] Implanted:Qt y: 1 on 08/15/2023 by Boubacar Brock M.D. at [facility] Hardware e.g. pins/screws /rods [employer]dom[employer] [id number] 03/13/2028 [id number] / / [id number] 1 Clp Hrzn Ti 6 Clp Monty - [id number] Implanted:Qt y: 1 on 08/15/2023 by Boubacar Brock M.D. at [facility] Hardware e.g. pins/screws /rods [employer]dom[employer] [id number] 03/21/2028 [id number] / / [id number] Stnt Uret Inl 6fx24 - [id number] Implanted:Qt y: 1 on 08/15/2023 by Jakob De Paz M.D. at [facility] Ureteral Stent N/A: Ureter [employer] [id number] 11/18/2027 [id number] / / [id number] Procedures Procedure Name Priority Date/Time Associated Diagnosis [...] of11 resultswithin the time period is included. [facility] Hemoglobin 9.5(L) 13.2 - 16.6 g/dL 11/17/2023 [...] CDT Candelaria Rivas D.O. LAB BLOOD ADD-ON [facility] [address] [place] [address], [facility] MKTO [facility] in [place] [address] [place] [address] * (ABNORMAL) Basic Metabolic Panel (11/17/2023 7:24 [...] CDT Candelaria Rivas D.O. LAB BLOOD ADD-ON [facility] [address] [place] [address] * Glucose, POCT (11/17/2023 6:45 AM CDT) Glucose, POCT, B 107 70 - 140 mg/dL 11/17/2023 6:45 AM CDT MKTO Blood 11/17/2023 6:45 AM CDT 11/17/2023 7:03 AM CDT Generic Rals LAB POCT ORDERABLES- MANUAL Performing Organization Address [facility] Co de Phone Number [facility] [address] [place] [address] * (ABNORMAL) Hemoglobin (11/16/2023 4:43 PM CDT) Hemoglobin 9.2(L) 13.2 - 16.6 g/dL 11/16/2023 5:13 PM CDT MKTO Blood (Blood, Venous) 11/16/2023 4:43 PM CDT 11/16/2023 5:10 PM CDT Madelyn Cesar D.O. LAB BLOOD ADD-ON Performing Organization Address [facility]/ZIP Co de Phone Number [facility] [address] [place] [address] * (ABNORMAL) CBC with Differential, Blood (11/16/2023 [...] CDT Rashawn Vences M.D. LAB BLOOD ADD-ON [facility] [address] [place] [address], [facility] MKTO [facility] in [place] [address] [place] [address] * (ABNORMAL) Comprehensive Metabolic Panel (11/16/2023 6:25 [...] CDT Rashawn Vences M.D. LAB BLOOD ADD-ON [facility] [address] [place] [address] * Transfuse Red Blood Cells : (11/15/2023 [...] BLOOD BANK TEST ORDERABLES Performing Organization Address [facility] Co de Phone Number [facility] [address] [place] [address], [place] [address] * Coccyx-Wound Ostomy Image Exam (11/15/2023 10:40 [...] RAD IMAGI NG PROCEDURES Performing Organization Address [facility] de Phone Number IIMS NA * ECG 12 Lead (11/15/2023 6:47 AM CDT) Pathologist [facility] Ventricular Rate ECG/Min 65 BPM MUSE IL Interval 144 ms MUSE QRSD Interval 76 ms MUSE QT Interval 430 ms MUSE QTC Interval 447 ms MUSE P [place] -7 degrees MUSE R [place] 9 degrees MUSE T Wave [place] 19 degrees MUSE 11/15/2023 6:47 AM CDT [...] M.D. ECG ORD ERABLES Performing Organization Address [facility] de Phone Number MUSE NA * (ABNORMAL) Urinalysis with Microscopic if Indicated (11/15/2023 6:25 AM CDT) Pathologist [facility] Source Urine, Urine, Midstream 11/15/2023 7:49 AM [...] to determine due to color interference Specific [place] SEE COMMENT 1.001 - 1.035 11/15/2023 8:03 AM CDT MKTO Comment:Unable to determine due to color interference Urobilinogen SEE COMMENT 0.2 - 1.0 mg/dL 11/15/2023 8:03 AM CDT MKTO Comment:Unable to determine due to color interference Urine (Urine, Midstream) 11/15/2023 6:25 AM CDT 11/15/2023 6:34 AM CDT Sylvie Wright M.D. LAB URI NE ORDERABLES [facility] [address] [place] [address], [facility] [place] [address] * (ABNORMAL) Microscopic Automated (11/15/2023 6:25 AM CDT) White Blood Cells >100(A) /hpf 11/15/2023 8:03 AM CDT MKTO Comment: ----REFERENCE VALUE---- Males: 0-3 Females: 0-10 Unknown: 0-10 Red Blood Cells >100(A) 0 - 2 /hpf 08/06/202 4 8:03 AM CDT MKTO Dysmorphic Red Blood Cells <=25 <=25 % 11/15/2023 8:03 AM CDT MKTO Squamous Cells Occ-3 /hpf 11/15/2023 8:03 AM CDT MKTO Bacteria Present(A) None Seen 11/15/2023 8:03 AM CDT MKTO Urine 11/15/2023 6:25 AM CDT 11/15/2023 6:34 AM CDT Sylvie Wright M.D. LAB URI NE ORDERABLES Performing Organization Address [facility] Co de Phone Number [facility] [address] [place] [address] * Bacterial Culture, Aerobic + Susceptibility, Urine [...] MICROBIOLOGY - GENERAL ORDERABLES Performing Organization Address [facility]/ZIP Co de Phone Number [facility] [address] [place] [address], [place] [address] * CT Abdomen Pelvis without IV Contrast [...] BLOOD BANK TEST ORDERABLES Performing Organization Address City/State/[facility] Co de Phone Number [facility] [address] [place] [address], [facility] NPRG [facility] [address] [place] [address] * Type and Screen (with Reflex Antibody [...] Raza M.D. LAB BLOOD BANK TEST ORDERABLES [facility] [address] [place] [address], [facility] NPRG [facility] [address] [place] [address] * Heparin Anti-Xa Assay (09/14/2023 3:19 AM [...] Sumit Holbrook M.D. LAB BLOOD NON ADD-ON [facility] [address] [place] [address], [facility] DTL [facility] [address] [place] [address] * IR Nephrostomy Tube Placement Left (09/13/2023 2:20 PM CDT) Anatomical Region Laterality Modality Genito Urinary, Vascular Int erventional RST LOS, Vascular Interventional ARZ LOS, Vascular Interventional FLA LOS Left X-Ray Angiography Impressions 09/13/2023 2:33 PM CDT Left 10 [place] percutaneous nephrostomy tube placement. EP Narrative [...] tract was further dilated and a 10 [place] nephrostomy tube was placed with loop [...] sedation timewas: 9 minutes. IMPRESSION: Left 10 [place] percutaneous nephrostomy tube placement. EP Latisha [...] MICROBIOLOGY - GENERAL ORDERABLES [facility] [address] [place] [address], [facility] [address] [place] [address] * Gram Stain (09/13/2023 2:17 PM CDT) Gram Stain No organisms seen. White blood cells, Rare 09/13/2023 9:02 PM CDT DT Fluid (Kidney, Left) 09/13/2023 2:17 PM CDT 09/13/2023 3:56 PM CDT Comment:Specimen Source Site : Fluid Latisha Whitehead M.D. LAB MICROBIOLOGY - GENERAL ORDERABLES Performing Organization Address [facility]/ZIP Co de Phone Number [facility] [address] [place] [address], [facility] [address] [place] [address] * Fungal Culture, Routine (09/13/2023 2:17 PM CDT) Fungal Culture, Routine No growth after 24 days of incubation. 10/08/2023 1:02 AM CDT DTL Fluid (Kidney, Left) 09/13/2023 2:17 PM CDT 09/13/2023 3:56 PM CDT Comment:Specimen Source Site : Fluid Latisha Whitehead M.D. LAB MICROBIOLOGY - GENERAL ORDERABLES [facility] [address] [place] [address], [facility] [address] [place] [address] * Bacterial Culture, Anaerobic + Susceptibility (09/13/2023 2:17 PM CDT) Bacterial Culture, Anaerobic + Susc No growth after 14 days of incubation. 09/27/2023 8:04 AM CDT DTL Fluid (Kidney, Left) 09/13/2023 2:17 PM CDT 09/13/2023 3:56 PM CDT Comment:Specimen Source Site : Fluid Latisha Whitehead M.D. LAB MICROBIOLOGY - GENERAL ORDERABLES Performing Organization Address [facility]/[place] [address] * APTT (Activated Partial Thromboplastin Time) (09/13/2023 5:56 AM CDT) Only the most recent of8 resultswithin the time period is included. Activated Partial Thrombopl Time, P 35 25 - 37 sec 09/13/2023 7:14 AM CDT DT Blood (Blood, Venous) 09/13/2023 5:56 AM CDT 09/13/2023 6:53 AM CDT Sumit Holbrook M.D. LAB BLOOD ADD-ON Performing Organization Address [facility] [place] [address] * NM Kidney DMSA (09/12/2023 12:21 PM [...] reduced radiotracer uptake asdescribed. Js Yang M.D. [facility] NM PROCEDURES * US Urinary [...] RAD IMAGI NG PROCEDURES Performing Organization Address [facility]/ZIP Co de Phone Number [facility] NA * Osmolality, Urine (09/09/2023 11:28 AM CDT) Osmolality, U 380 150 - 1150 mOsm/kg 09/09/2023 12:19 PM CDT DTL Urine 09/09/2023 11:2 8 AM CDT 09/09/2023 11:58 AM CDT Jeffery Church M.D. LAB URINE ORDERA BLES [facility] [address] [place] [address], [facility] DTL [facility] [address] [place] [address] * (ABNORMAL) Dipstick, Urine (09/09/2023 11:28 AM [...] LAB URINE ORDERA BLES Performing Organization Address [facility]/ZIP Co de Phone Number [facility] [address] [place] [address], [facility] [address] [place] [address] * pH, Random, Urine (09/09/2023 11:28 AM CDT) pH, Random, U 6.3 4.5 - 8.0 09/09/2023 12:19 PM CDT DTL Urine 09/09/2023 11:2 8 AM CDT 09/09/2023 11:58 AM CDT Jeffery Church M.D. LAB URINE ORDERA BLES Performing Organization Address [facility] Co de Phone Number [facility] [address] [place] [address], [facility] [address] [place] [address] * (ABNORMAL) Microscopic Manual (09/09/2023 11:28 AM [...] Jeffery Church M.D. LAB URINE ORDERA LAKESHABryon [facility] [address] [place] [address], [facility] [address] [place] [address] * (ABNORMAL) Gram Stain, Urine (09/09/2023 11:28 AM CDT) Source Urine, Urine, Straight Catheter 09/09/2023 11:58 AM CDT DTL Gram Stain, U Positive(A) Negative 09/09/2023 12:16 PM CDT DTL Comment: Few Gram-negative bacilli ? Yeast Urine 09/09/2023 11:2 8 AM CDT 09/09/2023 11:58 AM CDT Jeffery Church M.D. LAB URINE ORDERA LAKESHABryon Performing Organization Address [facility]/ZIP Co de Phone Number [facility] [address] [place] [address], [facility] [address] [place] [address] * (ABNORMAL) Urinalysis, with Microscopic: Urine, Straight [...] 09/09/2023 1:02 PM CDT DTL Predicted Range 2480-32020 mg/24 h 09/09/2023 1:02 PM CDT DTL Comment Micro done on <2.5 mL 09/09/2023 12:27 PM CDT DTL Urine (Urine, Straight Catheter) 09/09/2023 11:28 AM CDT 09/09/2023 11:58 AM CDT Jeffery Church M.D. LAB URINE ORDERA BLES [facility] [address] [place] [address], [facility] DTL [facility] [address] [place] [address] * US Kidneys Bilateral with Bladder (09/09/2023 [...] Time (PT) (09/09/2023 8:04 AM CDT) Pathologist [facility] Prothrombin Time, P 12.5 9.4 - 12.5 sec 09/09/2023 8:14 AM CDT [facility] INR 1.1 0.9 - 1.1 09/09/2023 8:14 AM CDT [facility] Comment: ----ADDITIONAL INFORMATION---- Standard intensity warfarin therapeutic range: 2.0 to 3.0 ?? High intensity warfarin therapeutic range: 2.5 to 3.5 Blood (Blood, Venous) 09/09/2023 8:04 AM CDT 09/09/2023 8:08 AM CDT Jeffery Church M.D. LAB BLOOD ADD-ON [facility] [address] [place] [address], [facility] [place] [address] [place] [address] * Potassium (09/05/2023 4:56 AM CDT) Pathologist [facility] Potassium, S 3.6 3.6 - 5.2 mmol/L 09/05/2023 5:49 AM CDT DTL Blood (Blood, Venous) 09/05/2023 4:56 AM CDT 09/05/2023 5:22 AM CDT Roxy Romero M.D. LAB BLOOD ADD-ON [facility] [address] [place] [address], [place] DTL [facility] [address] [place] [address] from Last 3 Months Advance Directives For more information, please contact: [phone] * Full Code (Latest Code Status on [...] Answer Comments Full Code: Discussed Care Teams Industrial Boilermaker Relationship Specialty Start Date End Date Elsewhere, Pcp PCP - General Internal Medicine 08/13/23
--- OUTSIDE RECORDS SUMMARY | 2023-12-02 12:44 | XMS_ITS | Encounter Summary ---
Author Organization [facility] Address [address] [place] [address] Care Team Providers Care Coal Handler Name Role Phone Elsewhere, Pcp Primary Care Provider Unavailabl e Encounter Details Date Type Department Care Team (Latest Contact Info) Description 11/14/2023 Intake [facility] Social History Tobacco Use Types Packs/Day Years Used Date Smoking Tobacco: Never Smokeless Tobacco: Never [facility] Utilities Answer Date Recorded In the [...] [facility] 11/15/2023 Sex and Gender Information Value Date Recorded Sex Assigned at Not on file Gender Identity Not on file Sexual Orientation Not on file documented as of this encounter Plan of Treatment Upcoming Encounters Date Type Department Care Team (Latest Contact Info) Description 12/07/2023 10:15 AM CDT Procedure visit Department of Urology in [place] [address] [place] [address] Burke Strauss M.D. [address] [place] [phone] Discharge Disposition: Home or Self Care 12/07/2023 10:30 AM CDT Office Visit Department of Urology in [place] [address] [place] [address] Burke Strauss M.D. [address] [place] [phone] Discharge Disposition: Home or Self Care documented as of this encounter Visit Diagnoses Not on filedocumented in this encounter Care Teams Coal Handler Relationship Specialty Start Date End Date Elsewhere, Pcp PCP - General Internal Medicine 08/13/23 documented as of this encounter
--- OUTSIDE RECORDS SUMMARY | 2023-12-02 12:44 | XMS_ITS | Encounter Summary ---
Author Organization [facility] Address [address] [place] [address] Care Team Providers Care Mold Operator Name Role Phone Elsewhere, Pcp Primary Care Provider Unavailabl e Reason for Visit * Reason Onset Date Comments Oncology records request 11/10/2023 Encounter Details Date Type Department Care Team (Latest Contact Info) Description 11/10/2023 Clinical Communication Department of Urology in [place], [place] [address] [place] [phone] Burke Strauss M.D. [address] [place] [phone] Oncology records request Social History Tobacco Use Types Packs/Day Years Used Date Smoking Tobacco: Never Smokeless Tobacco: Never [facility] Utilities Answer Date Recorded In the [...] living situation today? I have a [facility] place to live 11/15/2023 Sex and [...] Information was filled out and faxed to [facility], Dr. Mireya Tan clinic per Dr. Strauss. Will wait for these to come through and notify Dr. Strauss for his review. [facility] documented in this encounter Plan of Treatment Upcoming Encounters Date Type Department Care Team (Latest Contact Info) Description 12/07/2023 10:15 AM CDT Procedure visit Department of Urology in [place], [place] [address] [place] [address] Burke Strauss M.D. [facility] [place] [phone] Discharge Disposition: Home or Self Care 12/07/2023 10:30 AM CDT Office Visit Department of Urology in [place] [address] [place] [phone] Burke Strauss M.D. [address] [place] [phone] Discharge Disposition: Home or Self Care documented as of this encounter Visit Diagnoses Not on filedocumented in this encounter Care Teams Mold Operator Relationship Specialty Start Date End Date Elsewhere, Pcp PCP - General Internal Medicine 08/13/23 documented as of this encounter
--- OUTSIDE RECORDS SUMMARY | 2023-12-02 12:44 | XMS_ITS | Encounter Summary ---
Author Organization [facility] Address [address] [place] [address] Care Team Providers Care Citrus Fruit Colorer Name Role Phone Elsewhere, Pcp Primary Care [...] has e electric, gas, oil, or water [employer] threatened to shut off services in your [...] [facility] 11/15/2023 Sex and Gender Information Value Date Recorded Sex Assigned at Not on file Gender Identity Not on file Sexual Orientation Not on file documented as of this encounter Plan of Treatment Upcoming Encounters Date Type Department Care Team (Latest Contact Info) Description 12/07/2023 10:15 AM CDT Procedure visit Department of Urology in [place] [address] [place] [address] Burke Strauss M.D. [address] [place] [phone] Discharge Disposition: Home or Self Care 12/07/2023 10:30 AM CDT Office Visit Department of Urology in [place] [address] [place] [address] Burke Strauss M.D. [address] [place] [phone] Discharge Disposition: Home or Self Care documented [...] on filedocumented in this encounter Care Teams Citrus Fruit Colorer Relationship Specialty Start Date End Date Elsewhere, Pcp PCP - General Internal Medicine 08/13/23 documented as of this encounter
--- OUTSIDE RECORDS SUMMARY | 2023-12-02 12:44 | XMS_ITS | Encounter Summary ---
Author Organization [facility] Address [address] [place] [address] Care Team Providers Care Convenience Store Clerk Name Role Phone Elsewhere, Pcp Primary Care Provider Unavailabl e Encounter Details Date Type Department Care Team (Late st Contact Info) Description 11/09/2023 Clinical Communication Department of Urology in [place], [place] [address] [place] [address] Burke Strauss M.D. [address] [place] [phone] Social History Tobacco Use Types Packs/Day Years [...] your living situation today? I have a [facility] place to live 09/09/2023 Sex and [...] CDT Procedure visit Department of Urology in [address] [phone] Burke Strauss M.D. [employer] [place] [address] Discharge Disposition: Home or Self Care 12/07/2023 10:30 AM CDT Office Visit Department of Urology in [address] [address] Burke Strauss M.D. [address] [place] [phone] Discharge Disposition: Home or Self Care documented as of this encounter Visit Diagnoses Not on filedocumented in this encounter Care Teams Convenience Store Clerk Relationship Specialty Start Date End Date Elsewhere, Pcp PCP - General Internal Medicine 08/13/23 documented as of this encounter
--- OUTSIDE RECORDS SUMMARY | 2023-12-02 12:44 | XMS_ITS | Encounter Summary ---
Author Organization [facility] Address [address] [place] [address] Care Team Providers Care Rod Welder Name Role Phone Elsewhere, Pcp Primary Care Provider Unavailabl e Encounter Details Date Type Department Care Team (Late st Contact Info) Description 10/27/2023 Clinical Communication Department of Urology in [place], [place] [address] [place] [phone] Burke Strauss M.D. [address] [place] [address] Social History Tobacco Use Types Packs/Day Years Used Date Smoking Tobacco: Never Smokeless Tobacco: Never [facility] Utilities Answer Date Recorded In the past 12 months has e electric, gas, oil, or water [employer] threatened to shut off services in your [...] 2:15 PM CDT Patient follows urology in [place] but would like to transfer his care to [place] as it is closer to home. It looks like for Hematuria. Is this patient ok to see you? He has a catheter in and will need cath changes going forward. documented in this encounter Plan of Treatment Upcoming Encounters Date Type Department Care Team (Latest Contact Info) Description 12/07/2023 10:15 AM CDT Procedure visit Department of Urology in [place] [address] [place] [address] Burke Strauss M.D. [address] [place] [phone] Discharge Disposition: Home or Self Care 12/07/2023 10:30 AM CDT Office Visit Department of Urology in [place] [address] [place] [address] Burke Strauss M.D. [address] [place] [phone] Discharge Disposition: Home or Self Care documented as of this encounter Visit Diagnoses Not on filedocumented in this encounter Care Teams Rod Welder Relationship Specialty Start Date End Date Elsewhere, Pcp PCP - General Internal Medicine 08/13/23 documented as of this encounter
--- OUTSIDE RECORDS SUMMARY | 2023-12-02 12:44 | XMS_ITS | Encounter Summary ---
Author Organization [facility] Address [address] [place] [address] Care Team Providers Care Transmission Builder Name Role Phone Elsewhere, Pcp Primary Care Provider Unavailabl e Encounter Details Date Type Department Care Team (Late st Contact Info) Description 11/14/2023 Documentation Department of Urology in [place], [place] [address] [place] [phone] Sowmya Aviles, ARUN, C.N.P., M.S.N. [address] [place] [phone] Social History Tobacco Use Types Packs/Day Years Used Date Smoking Tobacco: Never Smokeless Tobacco: Never [facility] Utilities Answer Date Recorded In [...] [facility] 11/15/2023 Sex and Gender Information Value Date Recorded Sex Assigned at Not on file Gender Identity Not on file Sexual Orientation Not on file documented as of this encounter Progress Notes * Sowmya Aviles, ARUN, C.N.P., M.S.N. - 11/14/2023 3:31 PM CDT Contacted via [facility] regarding this patient. Not personally seen or evaluated as patient is in the [facility]. Kalen Vega is a 83 y.o. male with medical comorbidities of acute DVT on Plavix, coronary artery disease status post stent, degenerative joint disease, hyperlipidemia, lymphedema, prediabetes. 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 Tan in [place], [place]. Right hydronephrosis and right atrophic kidney [...] was readmitted to hospital. He presented to [facility] Department today for evaluation of hematuria and no drainage into urinary catheter. He reports leakage around the catheter of urine and blood clots. A 22 [place] three-way catheter was placed, patient was hand [...] CDT Procedure visit Department of Urology in [place], [place] [address] [place] [address] Burke Strauss M.D. [facility] [place] [address] Discharge Disposition: Home or Self Care 12/07/2023 10:30 AM CDT Office Visit Department of Urology in [place], [place] [address] [place] [address] Burke Strauss M.D. [address] [place] [phone] Discharge Disposition: Home or Self Care documented as of this encounter Visit Diagnoses Not on filedocumented in this encounter Care Teams Transmission Builder Relationship Specialty Start Date End Date Elsewhere, Pcp PCP - General Internal Medicine 08/13/23 documented as of this encounter
--- OUTSIDE RECORDS SUMMARY | 2023-12-02 12:45 | XMS_ITS | Encounter Summary ---
Author Organization [facility] Address [address] [place] [address] Care Team Providers Care Cream Separator Operator Name Role Phone Elsewhere, Pcp Primary Care Provider Unavailabl e Reason for Referral * Outpatient (Routine) - Closed Specialty Diagnoses / Procedures Referred By Contac t Referred To Contact Diagnoses Hematuria Procedures URO Urethral cath change (UCC) Paula Hernandez M.D. [address] [place] [address] [facility] Referral ID Status Reason Start Date Expiration Date Visits Re quested Visits Authorized [id number] Closed 09/15/2023 09/14/2024 1 1 * Outpatient (Routine) - Authorized Specialty Diagnoses / Procedures Referred By Contac t Referred To Contact Radiology Diagnoses Hematuria Procedures IR Nephrostomy Tube Exchange Left Paula Hernandez M.D. [address] [place] [address] [facility] Referral ID Status Reason Start Date Expiration Date V isits Requested Visits Authorized [id number] Authorized 09/15/2023 09/14/2024 1 1 Reason for Visit * Reason Comments Blood in Urine Encounter Details Date Type Department Care Team (Latest Contact Info) Description 09/09/2023 7:24 AM CDT - 09/15/2023 5:28 PM CDT Hospital Encounter [facility], [facility], Sixth Floor [address] [place] [phone] Gerri Merrill M.D., Ph.D. [address] [place] [phone] Sumit Holbrook M.D. [address] [place] [phone] Hematuria (Primary Dx) Discharge Disposition: Home or Self Care Social History Tobacco Use Types Packs/Day Years Used Date Smoking Tobacco: Never Smokeless Tobacco: Never [facility] [employer] Answer Date Recorded In the past 12 months has [facility] [employer] gas, oil, or water [employer] threatened to shut off services in your [...] AM CDT DISCHARGE SUMMARY BRIEF OVERVIEW Hospital: [facility] Discharge Provider: Sumit Holbrook M.D. Primary Team: [facility] Urology Surgery - Chief Helga [...] IP CONSULT TO UROLOGY IP CONSULT TO OFFICE ADMINISTRATOR WOUND CARE IP CONSULT TO HYPERBARIC MEDICINE IP CONSULT TO VASCULAR MEDICINE IP CONSULT TO DIETITIAN CONDITION AT DISCHARGE stable Discharge instructions were provided to the patient and caregiver(s). documented in this encounter Discharge Instructions * Discharge Instructions* Yasmine Loco - 09/09/2023 12:27 PM CDT You were discharged from the [facility] Urology Surgery - Chief A - Blue Service. Please identify this service name if you call with questions after hospitalization. * Attachments The following attachments cannot be sent through Care Everywhere. * Sulfamethoxazole/Trimethoprim (By mouth) (French) documented in this encounter Medications at Time [...] this encounter Progress Notes * Deanne Mike L.Prieto.S.Raman., M.S.W. - 09/15/2023 12:27 PM CDT SUBJECTIVE [...] reviewed. GI Function: Last BM Date: 09/11/23, Avis Stool Chart: Type 5: Soft blobs with clear-cut edges, Passing Flatus: Yes Integumentary/Wounds: Lines/Drains/Airways Wound Duration Wound 05/06/24 Incision Pannus Mid 31 days Wound 08/23/23 [...] 86.8 kg (09/09/2023) Current Weight: 84.5 kg Hankins Body Weight (Calculated) : 75.3 kg BMI [...] or 5%. Estimated Needs: Total Calorie Needs: 7519-2073 calories/day Method to Estimate Energy Needs: kcal/kg [...] about patient's nutritional care please contact pager [phone] on weekdays 07:30-16:00 or [phone] on weekends/holidays ([facility]). * Clara Luu APRN, C.N.P., [...] Last 24 Hours: Date 09/13/23 07 - 09/14/23 0659 09/14/23 07 - 09/15/23 0659 Shift [id number] [phone] 24 Hour Total 2424-5120 6488-7118 8584-4144 24 Hour Total INTAKE Other 30 60 [...] please contact Vascular and Interventional Radiology DEBBI ([phone]). Anticoagulation: A percutaneous nephrostomy tube is considered [...] care. Please feel free to page the [facility] Inpatient Consult Service at [phone] or the on-call resident at [phone] after 5 PM and on weekends with [...] . Neph tube clear yellow urine. I/O ([id number]): 1.9 L, 1.1 L from the neph [...] questions or concerns. Pager during business hours: [phone] Pager after hours: [phone] * Paula Hernandez M.D. - 09/13/2023 6:05 [...] in place draining clear yellow urine I/O ([id number]): Adequate urine output 2.7 L/248 1 L [...] questions or concerns. Pager during business hours: [phone] Pager after hours: [phone] * Raya Meza Pharm.D., R.Ph., [facility] - 09/12/2023 7:44 AM CDT Images [...] for medicationuse optimization Stephanie Meza Pharm.D., R.Ph., BCPS Addendum: Heparin will be stopped on 09/13/23 [...] in place draining clear yellow urine I/O ([id number]): CBI paused for obs Labs: Hb: Hemoglobin [...] Date/Time Bacterial Culture, Aerobic + Susceptibility, Urine [[id number]] (Abnormal) (Susceptibility) Collected: 09/09/23 1128 Lab Status: [...] Susceptible Bacterial Culture, Aerobic + Susceptibility, Urine [[id number]] Collected: 09/03/23 1050 Lab Status: Final result [...] questions or concerns. Pager during business hours: [phone] Pager after hours: [phone] * Js Yang M.D. - 09/11/2023 9:18 [...] Service [place] [phone] during business hours orat [phone] after hours. * Portillo Crespo Pharm.D., R.Ph., [...] LUCERO, BCPS, [facility] Pager [phone] * Js Yang M.D. - 09/10/2023 9:50 [...] [place] [phone] during business hours orat [phone] after hours. * Quin Harrell Pharm.D., R.Ph., [...] R.N., C.W.C.N. - 09/09/2023 1:16 PM CDT [facility] Wound RN consulted to [...] Unable to Measure N *Wound Bed Open;[place];Yellow;Fibrin/Slough Tissue Exposed None Odor None *Exudate Amount Small Drainage Description Serous;Perez Janiya-wound Assessment Intact;Fragile;[place];Purple;Maceration;White Periwound Treatment Liquid skin protectant (SurePrep) *Primary Dressing Gelling fiber/Hydrofiber (Aquacel Ag) *Primary Dressing Frequency of Change Daily & PRN *Secondary Dressing Foam (Sacral Mepilex Border) *Secondary Dressing Frequency of Change Daily & PRN Lengthy Treatment > 30 minutes > 30 minutes Ongoing management Nursing;Wound/sewage screen operator Partial head to toe skin assessment [...] PM CDT * Raya Meza Pharm.D., R.Ph., [facility] - 09/09/2023 11:17 AM CDT [...] to follow for medicationuse optimization Stephanie Meza, Pharm.D., R.Ph., [facility] Admission Medication History Note Adherence [...] follow Paula Hernandez M.D. Urology PGY-2 Pager #[phone] Please page Chief Urology at [phone] from 7 AM - 5 PM or at [phone] after hours with any questions/concerns. documented in [...] reviewed. GI Function: Last BM Date: 09/11/23, Avis Stool Chart: Type 5: Soft blobs with [...] 86.8 kg (09/09/2023) Current Weight: 84.5 kg Hankins Body Weight (Calculated) : 75.3 kg BMI [...] or 5%. Estimated Needs: Total Calorie Needs: 1321-3396 calories/day Method to Estimate Energy Needs: kcal/kg [...] about patient's nutritional care please contact pager [phone] on weekdays 07:30-16:00 or [phone] on weekends/holidays ([facility]). * Clara Luu APRN, C.N.P., [...] admitted for CBI. He was transferred to [facility] after difficultywith irrigating his Jon and CT [...] so it will be safe to proceed /. Educational materials on care of a nephrostomy [...] and recommendations. Please feel free to page [phone] [phone] after 5 PM and on weekends with additional questions. VIR will continue to follow * Alessandra Aguero D.O. - 09/09/2023 5:26 PM CDTAssociated Order(s): IP CONSULT TO VASCULAR MEDICINE VASCULAR MEDICINE CONSULT NOTE Requesting Physician: Gerri Merrill M.D.,* SUBJECTIVE REASON FOR CONSULT: assistance with AC management, patient on plavix and eliquis admitted with refractory hematuria requing CBI. Recommend heparin drip? thanks [facility] [phone] HISTORY OF PRESENT ILLNESS Mr. Vega is [...] stents placed in total (2016, no prior NC, completed after positive stress test) Recommended for [...] for radiation proctitis SOCIAL HISTORY Lives in [place], [place] OBJECTIVE AVSS General: Lying in bed, [...] with Dr. Victoria, the chief urology resident senior health consultant. Please page chief Urology Service [place] [phone] during [place] [phone] after hours. Paula Hernandez M.D. 09/09/23 9:10 [...] Urology consulted after discussion with the catheter mechanical system technician who advised that for this patient they are required to get approval from Urologyprior to placing catheter. ED Course as of 09/09/23 0958 TueSeptember 09, 2023 0822 Hemoglobin(!): 8.9 Down from 9.6 one-week ago 0822 Leukocytes(!): 14.5 New leukocytosis with neutrophilia 0822 INR: 1.1 0823 Discussed with the catheter mechanical system technician. Bladder scan showed 125 mL. There [...] CDT Procedure visit Department of Urology in [address] [phone] Burke Strauss M.D. [address] [place] [address] Discharge Disposition: Home or Self Care 12/07/2023 10:30 AM CDT Office Visit Department of Urology in [place], [place] [address] [place] [address] Burke Strauss M.D. [address] [place] [address] Discharge Disposition: Home or Self Care Pending [...] CBC without Differential (09/15/2023 3:37 AM CDT) [facility] Hemoglobin 9.8(L) 13.2 - 16.6 g/dL [...] M.D. LAB BLOOD ADD-ON [facility] [address] [place] [address] * Heparin Anti-Xa Assay (09/14/2023 3:19 AM [...] LAB BLOOD NON ADD-ON [facility] [address] [place], [place] [phone] [place] [address] [facility] 200 [place] [address] * (ABNORMAL) CBC without Differential (09/14/2023 3:19 [...] CDT Paula Hernandez M.D. [place] [address], [facility] [place] [address] * IR Nephrostomy Tube Placement Left (09/13/2023 2:20 PM CDT) Anatomical Region Laterality Modality Genito Urinary, Vascular Int erventional RST LOS, Vascular Interventional ARZ LOS, Vascular Interventional FLA LOS Left X-Ray Angiography Impressions 09/13/2023 2:33 PM CDT Left 10 Latvian percutaneous nephrostomy tube placement. EP Narrative 09/13/2023 [...] tract was further dilated and a 10 Latvian nephrostomy tube was placed with loop formed [...] sedation timewas: 9 minutes. IMPRESSION: Left 10 Latvian percutaneous nephrostomy tube placement. EP Latisha Whitehead [...] GENERAL ORDERABLES [facility] [address] [place] [address], [facility] [address] [place] [address] * Bacterial Culture, Anaerobic + Susceptibility (09/13/2023 2:17 PM CDT) Bacterial Culture, Anaerobic + Susc No growth after 14 days of incubation. 09/27/2023 8:04 AM CDT DTL Fluid (Kidney, Left) 09/13/2023 2:17 PM CDT 09/13/2023 3:56 PM CDT Comment:Specimen Source Site : Fluid Latisha Whitehead M.D. LAB MICROBIOLOGY - GENERAL ORDERABLES Performing Organization Address City/[facility]/ZIP Co de Phone Number [facility] [address] [place] [address], [facility] [address] [place] [address] * Gram Stain (09/13/2023 2:17 PM CDT) Gram Stain No organisms seen. White blood cells, Rare 09/13/2023 9:02 PM CDT DTL Fluid (Kidney, Left) 09/13/2023 2:17 PM CDT 09/13/2023 3:56 PM CDT Comment:Specimen Source Site : Fluid Latisha Whitehead M.D. LAB MICROBIOLOGY - GENERAL ORDERABLES Performing Organization Address City/[facility]/ZIP Co de Phone Number [facility] [address] [place] [address], [facility] 200 [place] [address] * Bacterial Culture, Aerobic + Susceptibility (09/13/2023 2:17 PM CDT) Bacterial Culture, Aerobic + Susc No growth after 5 days of incubation. 09/18/2023 12:35 PM CDT DTL Fluid (Kidney, Left) 09/13/2023 2:17 PM CDT 09/13/2023 3:56 PM CDT Comment:Specimen Source Site : Fluid Latsiha Whitehead M.D. LAB MICROBIOLOGY - GENERAL ORDERABLES [facility] [address] [place] [address], [facility] [address] [place] [address] * (ABNORMAL) CBC without Differential (09/13/2023 5:57 [...] CDT Ko Victoria M.D. [place] [address], [facility] [address] [place] [address] * Heparin Anti-Xa Assay (09/13/2023 5:56 AM [...] LAB BLOOD NON ADD-ON Performing Organization Address City/[facility] Co de Phone Number [facility] [address] [place] [address], [facility] [address] [place] [address] * APTT (Activated Partial Thromboplastin Time) (09/13/2023 5:56 AM CDT) Pathologist [facility] Activated Partial Thrombopl Time, P 35 25 - 37 sec 09/13/2023 7:14 AM CDT DTL Blood (Blood, Venous) 09/13/2023 5:56 AM CDT 09/13/2023 6:53 AM CDT Sumit Holbrook M.D. LAB BLOOD ADD-ON Performing Organization Address [facility] Co de Phone Number [facility] [address] [place] [address], [facility] [address] [place] [address] * (ABNORMAL) Basic Metabolic Panel (09/13/2023 5:56 [...] M.D. LAB BLOOD ADD-ON [facility] 200 [place] [address], [facility] [address] [place] [address] * NM Kidney DMSA (09/12/2023 12:21 PM [...] reduced radiotracer uptake asdescribed. Js Yang M.D. [facility] PROCEDURES * Transfuse Red Blood [...] Hospital/ZIP Co de Phone Number [facility] [address] 200 [place] [address] * (ABNORMAL) APTT (Activated Partial Thromboplastin Time) (09/12/2023 3:42 AM CDT) [facility] Activated Partial Thrombopl Time, P 49(H) 25 - 37 sec 09/12/2023 4:35 AM CDT DTL Blood (Blood, Venous) 09/12/2023 3:42 AM CDT 09/12/2023 4:00 AM CDT Gerri Merrill M.D., Ph.D. LAB BLOOD A DD-ON Performing Organization Address [facility] Co de Phone Number [facility] [address] [facility] 200 [place] [address] * (ABNORMAL) Basic Metabolic Panel (09/11/2023 8:23 [...] CDT Js Yang M.D. LAB BLOOD ADD-ON [facility] [address] [place] [address], [facility] [address] [place] [address] * (ABNORMAL) CBC without Differential (09/11/2023 8:23 [...] Hospital/ZIP Co de Phone Number [facility] [address] [facility] 200 [place] [address] * (ABNORMAL) APTT (Activated Partial Thromboplastin Time) (09/10/2023 11:42 PM CDT) [facility] Activated Partial Thrombopl Time, P 47(H) 25 - 37 sec 09/11/2023 2:05 AM CDT DTL Blood (Blood, Venous) 09/10/2023 11:42 PM CDT 09/11/2023 2:05 AM CDT Gerri Merrill M.D., Ph.D. LAB BLOOD A DD-ON Performing Organization Address [facility] Co de Phone Number [facility] [address] [facility] 200 [place] [address] * [place] Urinary Bladder (09/10/2023 8:41 PM [...] Thromboplastin Time) (09/10/2023 6:09 PM CDT) Pathologist [facility] Activated Partial Thrombopl Time, P 46(H) 25 - 37 sec 09/10/2023 7:47 PM CDT DTL Blood (Blood, Venous) 09/10/2023 6:09 PM CDT 09/10/2023 6:25 PM CDT Gerri Merrill M.D., Ph.D. LAB BLOOD A DD-ON [facility] [address] [place] [address], [place] [facility] [address] [place] [address] * (ABNORMAL) APTT (Activated Partial Thromboplastin Time) (09/10/2023 10:11 AM CDT) Pathologist [facility] Activated Partial Thrombopl Time, P 63(H) 25 - 37 sec 09/10/2023 10:57 AM CDT DTL Blood (Blood, Venous) 09/10/2023 10:11 AM CDT 09/10/2023 10:40 AM CDT Gerri Merrill M.D., Ph.D. LAB BLOOD A DD-ON Performing Organization Address [facility] Co de Phone Number [facility] [address] [place] [phone] [place] [address] DTL [facility] 200 [place] [address] * (ABNORMAL) CBC without Differential (09/10/2023 3:27 [...] M.D. LAB BLOOD ADD-ON Performing Organization Address [facility]/ZIP Co de Phone Number [facility] [address] [place] [address] [address] [place] [address] * (ABNORMAL) APTT (Activated Partial Thromboplastin Time) (09/10/2023 12:06 AM CDT) [facility] Activated Partial Thrombopl Time, P 57(H) 25 - 37 sec 09/10/2023 1:05 AM CDT DTL Blood (Blood, Venous) 09/10/2023 12:06 AM CDT 09/10/2023 12:33 AM CDT Gerri Merrill M.D., Ph.D. LAB BLOOD A DD-ON Performing Organization Address City/[facility]/ZIP Co de Phone Number [facility] [address] [place], [place] [phone] [place] [address] [address] [place] [address] * APTT (Activated Partial Thromboplastin Time) (09/09/2023 5:08 PM CDT) [facility] Activated Partial Thrombopl Time, P 31 25 - 37 sec 09/09/2023 5:24 PM CDT STMA Blood (Blood, Venous) 09/09/2023 5:08 PM CDT 09/09/2023 5:12 PM CDT Ko Victoria M.D. LAB BLOOD ADD-ON Performing Organization Address City/[facility]/ZIP Co de Phone Number [facility] [address] [place], [place] [phone] [place] [address] 200 [place] [address] * (ABNORMAL) Dipstick, Urine (09/09/2023 11:28 AM CDT) [facility] Hemoglobin, QL, U Large(A) Negative 09/09/2023 [...] URINE ORDERA BLES [facility] [address] [place] [address], [facility] [address] [place] [address] * pH, Random, Urine (09/09/2023 11:28 AM CDT) pH, Random, U 6.3 4.5 - 8.0 09/09/2023 12:19 PM CDT DTL Urine 09/09/2023 11:2 8 AM CDT 09/09/2023 11:58 AM CDT Jeffery Church M.D. LAB URINE ORDERA BLES Performing Organization Address City/[facility]/ZIP Co de Phone Number [facility] [address] [place] [address], [facility] [address] [place] [address] * Osmolality, Urine (09/09/2023 11:28 AM CDT) Osmolality, U 380 150 - 1150 mOsm/kg 09/09/2023 12:19 PM CDT DTL Urine 09/09/2023 11:2 8 AM CDT 09/09/2023 11:58 AM CDT Jeffery Church M.D. LAB URINE ORDERA BLES [facility] [address] [place] [address], [facility] [address] [place] [address] * (ABNORMAL) Microscopic Manual (09/09/2023 11:28 AM [...] LAB URINE MARLONA SHELLY Performing Organization Address City/[facility]/ZIP Co de Phone Number [facility] [address] [place] [address], [facility] [address] [place] [address] * (ABNORMAL) Gram Stain, Urine (09/09/2023 11:28 AM CDT) Source Urine, Urine, Straight Catheter 09/09/2023 11:58 AM CDT DTL Gram Stain, U Positive(A) Negative 09/09/2023 12:16 PM CDT DTL Comment: Few Gram-negative bacilli ? Yeast Urine 09/09/2023 11:2 8 AM CDT 09/09/2023 11:58 AM CDT Jeffery Church M.D. LAB URINE MARLONA SHELLY [facility] [address] [place] [address], [facility] DTL [facility] [address] [place] [address] * (ABNORMAL) Bacterial Culture, Aerobic + Susceptibility, Urine (09/09/2023 11:28 AM CDT) [facility] Signature Urine Culture ENTEROBACTER CLOACAE COMPLEX >100,000 cfu/mL [...] MICROBIOLOGY - GENERAL ORDERABLES Performing Organization Address [facility] Co de Phone Number [facility] [address] [place] [address], [facility] DTL [facility] [address] [place] [address] * (ABNORMAL) Urinalysis, with Microscopic: Urine, Straight [...] 09/09/2023 1:02 PM CDT DTL Predicted Range 2480-33760 mg/24 h 09/09/2023 1:02 PM CDT DTL Comment Micro done on <2.5 mL 09/09/2023 12:27 PM CDT DTL Urine (Urine, Straight Catheter) 09/09/2023 11:28 AM CDT 09/09/2023 11:58 AM CDT Jeffery Church M.D. LAB URINE ORDERA BLES Performing Organization Address [facility]/ZIP Co de Phone Number [facility] [address] [place] [address], [facility] [address] [place] [address] * US Kidneys Bilateral with Bladder (09/09/2023 [...] CDT Jeffery Church M.D. LAB BLOOD ADD-ON [address] [address], [place] [address] * (ABNORMAL) CBC with Differential, Blood (09/09/2023 8:04 AM CDT) Pathologist [facility] Hemoglobin [...] CDT Jeffery Church M.D. LAB BLOOD ADD-ON [facility] 200 [place] [address], [facility] STMA [facility] [address] [place] [address] * (ABNORMAL) Basic Metabolic Panel (09/09/2023 8:04 [...] BLOOD ADD-ON Performing Organization Address City/[facility] Co de Phone Number [facility] [address] [place] [address], [facility] [place] [address] * Type and Screen (with Reflex Antibody [...] BANK T EST ORDERABLES Performing Organization Address [facility] Co de Phone Number [facility] [address] [place] [address], [facility] STRM [address] [address] documented in this encounter Visit Diagnoses Diagnosis [...] Repeat anti-Xa: 6 hours after Heparin resumed 2111 (New Bag - Provider: Lilia Whitney R.N. [...] documented as of this encounter Care Teams Cream Separator Operator Relationship Specialty Start Date End Date Elsewhere, Pcp PCP - General Internal Medicine 08/13/23 documented as of this encounter
--- OUTSIDE RECORDS SUMMARY | 2023-12-02 12:45 | XMS_ITS | Encounter Summary ---
Author Organization [facility] Address [address] [place] [address] Care Team Providers Care Head Of Human Resources Name Role Phone Elsewhere, Pcp Primary Care Provider Unavailabl e Encounter Details Date Type Department Care Team (Late st Contact Info) Description 09/27/2023 Clinical Communication Department of Urology in [place], [place] [address] [place] [address] Paula Hernandez M.D. [address] [place] [address] Social History Tobacco Use Types Packs/Day Years Used Date Smoking Tobacco: Never Smokeless Tobacco: Never [facility] Utilities Answer Date Recorded In the past 12 months has [facility] electric, gas, oil, or water [employer] threatened to shut off services in your [...] your living situation today? I have a [facility] place to live 09/09/2023 Sex and [...] CDT Procedure visit Department of Urology in [address] [address] Burke Strauss M.D. [address] [place] [phone] Discharge Disposition: Home or Self Care 12/07/2023 10:30 AM CDT Office Visit Department of Urology in [place], [place] [address] [place] [address] Burke Strauss M.D. [address] [place] [phone] Discharge Disposition: Home or Self Care documented as of this encounter Visit Diagnoses Not on filedocumented in this encounter Care Teams Head Of Human Resources Relationship Specialty Start Date End Date Elsewhere, Pcp PCP - General Internal Medicine 08/13/23 documented as of this encounter
--- OUTSIDE RECORDS SUMMARY | 2023-12-02 12:45 | XMS_ITS | Encounter Summary ---
Author Organization [facility] Address [address] [place] [address] Care Team Providers Care Clip Bolter And Wrapper Name Role Phone Elsewhere, Pcp Primary Care Provider Unavailabl e Encounter Details Date Type Department Care Team (Late st Contact Info) Description 09/21/2023 Clinical Communication Department of Urology in [place], [place] [address] [place] [address] Paula Hernandez M.D. [address] [place] [phone] Social History Tobacco Use Types Packs/Day Years Used Date Smoking Tobacco: Never Smokeless Tobacco: Never [facility] Utilities Answer Date Recorded In the past 12 months has [facility] [employer], gas, oil, or water [employer] threatened to shut off services in your [...] 2:37 PM CDT I called the patient's [place] physician who he saw yesterday, 09/19 in [...] CDT Procedure visit Department of Urology in [place], [place] [address] [place] [address] Burke Strauss M.D. [facility] [place] [address] Discharge Disposition: Home or Self Care 12/07/2023 10:30 AM CDT Office Visit Department of Urology in [place] [address] [place] [address] Burke Strauss M.D. [address] [place] [phone] Discharge Disposition: Home or Self Care documented as of this encounter Visit Diagnoses Not on filedocumented in this encounter Care Teams Clip Bolter And Wrapper Relationship Specialty Start Date End Date Elsewhere, Pcp PCP - General Internal Medicine 08/13/23 documented as of this encounter
--- OUTSIDE RECORDS SUMMARY | 2023-12-02 12:45 | XMS_ITS | Encounter Summary ---
Author Organization [facility] Address [address] [place] [address] Care Team Providers Care Certified Maintenance Welder Name Role Phone Elsewhere, Pcp Primary Care Provider Unavailabl e Encounter Details Date Type Department Care Team (Late st Contact Info) Description 09/06/2023 Orders Only Section of Hyperbaric Medicine in [place], [place] [address] [place] [address] Kira Ferraro, ARUN, C.N.P., M.S.N. [address] [place] [address] Social History Tobacco Use Types Packs/Day Years Used Date Smoking Tobacco: Never Smokeless Tobacco: Never [facility] Utilities Answer Date Recorded In the [...] have [facility] live 09/09/2023 Sex and Gender Information Value Date Recorded Sex Assigned at Not on file Gender Identity Not on file Sexual Orientation Not on file documented as of this encounter Plan of Treatment Upcoming Encounters Date Type Department Care Team (Latest Contact Info) Description 12/07/2023 10:15 AM CDT Procedure visit Department of Urology in [address] [phone] Burke Strauss M.D. [address] [place] [phone] Discharge Disposition: Home or Self Care 12/07/2023 10:30 AM CDT Office Visit Department of Urology in [place] [address] [place] [phone] Burke Strauss M.D. 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
--- OUTSIDE RECORDS SUMMARY | 2023-12-02 12:45 | XMS_ITS | Encounter Summary ---
Author Organization [facility] Address [address] [place] [address] Care Team Providers Care Imaging Assistant Name Role Phone Elsewhere, Pcp Primary Care Provider Unavailabl e Encounter Details Date Type Department Care Team (Late st Contact Info) Description 09/09/2023 12:10 PM CDT Ancillary Procedure Department of Nursing Social History Tobacco Use Types Packs/Day Years Used Date Smoking Tobacco: Never Smokeless Tobacco: Never [facility] Utilities Answer Date Recorded In the past 12 months has e electric, gas, oil, or water [employer] threatened to shut off services in your [...] [facility] live 09/09/2023 Sex and Gender Information Value Date Recorded Sex Assigned at Not on file Gender Identity Not on file Sexual Orientation Not on file documented as of this encounter Plan of Treatment Upcoming Encounters Date Type Department Care Team (Latest Contact Info) Description 12/07/2023 10:15 AM CDT Procedure visit Department of Urology in [address] [phone] Burke Strauss M.D. [address] [place] [phone] Discharge Disposition: Home or Self Care 12/07/2023 10:30 AM CDT Office Visit Department of Urology in [place] [address] [place] [address] Burke Strauss M.D. [address] [place] [phone] Discharge Disposition: Home or Self Care documented [...] on filedocumented in this encounter Care Teams Imaging Assistant Relationship Specialty Start Date End Date Elsewhere, Pcp PCP - General Internal Medicine 08/13/23 documented as of this encounter
--- OUTSIDE RECORDS SUMMARY | 2023-12-02 12:45 | XMS_ITS | Encounter Summary ---
Author Organization [facility] Address [address] [place] [address] Care Team Providers Care Billet Straightener Name Role Phone Elsewhere, Pcp Primary Care Provider Unavailabl e Reason for Visit * Reason Comments Urinary Retention * Outpatient (Routine) - Closed Specialty Diagnoses / Procedures Referred By Contaraceli t Referred To Contact Diagnoses Hematuria Procedures URO Urethral cath change (UCC) Paula Hernandez M.D. [address] [place] [phone] [facility] Referral ID Status Reason Start Date Expiration Date Visits Re quested Visits Authorized [id number] Closed 09/15/2023 09/14/2024 1 1 Encounter Details Date Type Department Care Team (Late st Contact Info) Description 10/14/2023 1:00 PM CDT Procedure visit Department of Urology in [place], [place] [address] [place] [phone] Paula Hernandez M.D. [address] [place] [phone] Khadra Miller R.N. [address] [place] [phone] Hematuria Social History Tobacco Use Types Packs/Day [...] Procedure visit Department of Urology in [address] [phone] Burke Strauss M.D. [address] [place] [phone] Discharge Disposition: Home or Self Care 12/07/2023 10:30 AM CDT Office Visit Department of Urology in [address] [phone] Burke Strauss M.D. [address] [place] [phone] Discharge Disposition: Home or Self Care documented as of this encounter Visit Diagnoses Diagnosis Hematuria documented in this encounter Care Teams Billet Straightener Relationship Specialty Start Date End Date Elsewhere, Pcp PCP - General Internal Medicine 08/13/23 documented as of this encounter
--- OUTSIDE RECORDS SUMMARY | 2023-12-02 12:45 | XMS_ITS | Encounter Summary ---
Author Organization [facility] Address [address] [place] [address] Care Team Providers Care Yarn Twister Name Role Phone Elsewhere, Pcp Primary Care Provider Unavailabl e Reason for Referral * Outpatient (Routine) - Authorized Specialty Diagnoses / Procedures Referred By Contac t Referred To Contact Diagnoses Hematuria Gross Procedures DX Chest AP or PA and Lateral 2 Views Paula Hernandez M.D. [address] [place] [phone] [facility] Referral ID Status Reason Start Date Expiration Date V isits Requested Visits Authorized [id number] Authorized 09/16/2023 09/15/2024 1 1 Encounter Details Date Type Department Care Team (Late st Contact Info) Description 09/16/2023 Orders Only Department of Urology in [place], [place] [address] [place] [phone] Paula Hernandez M.D. [address] [place] [phone] Hematuria Gross (Primary Dx) Social History Tobacco [...] [facility] live 09/09/2023 Sex and Gender Information Value Date Recorded Sex Assigned at Not on file Gender Identity Not on file Sexual Orientation Not on file documented as of this encounter Plan of Treatment Upcoming Encounters Date Type Department Care Team (Latest Contact Info) Description 12/07/2023 10:15 AM CDT Procedure visit Department of Urology in [place], [place] [address] [place] [address] Burke Strauss M.D. [address] [place] [phone] Discharge Disposition: Home or Self Care 12/07/2023 10:30 AM CDT Office Visit Department of Urology in [place], [place] [address] [place] [phone] Burke Strauss M.D. [address] [place] [phone] Discharge Disposition: Home or Self Care Scheduled [...] documented as of this encounter Care Teams Yarn Twister Relationship Specialty Start Date End Date Elsewhere, Pcp PCP - General Internal Medicine 08/13/23 documented as of this encounter
--- OUTSIDE RECORDS SUMMARY | 2023-12-02 12:45 | XMS_ITS | Encounter Summary ---
Author Organization [facility] Address [address] [place] [address] Care Team Providers Care Assembler Surgical Garment Name Role Phone Elsewhere, Pcp Primary Care Provider Unavailabl e Reason for Visit * Reason Onset Date Comments follow up questions 09/16/2023 Encounter Details Date Type Department Care Team (Latest Contact Info) Description 09/16/2023 Clinical Communication Department of Urology in [place], [place] [address] [place] [address] Provider, Unknown follow up questions Social History Tobacco Use Types Packs/Day Years Used Date Smoking Tobacco: Never Smokeless Tobacco: Never [employer] Utilities Answer Date Recorded In the past 12 months has [facility] [employer], gas, oil, or water [employer] threatened to shut off services in your [...] CDT Procedure visit Department of Urology in [place], [place] [address] [place] [address] Burke Strauss M.D. [facility] [place] [address] Discharge Disposition: Home or Self Care 12/07/2023 10:30 AM CDT Office Visit Department of Urology in [place], [place] [address] [place] [address] Burke Strauss M.D. 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
--- OUTSIDE RECORDS SUMMARY | 2023-12-02 12:45 | XMS_ITS | Encounter Summary ---
Author Organization [facility] Address [address] [place] [address] Care Team Providers Care Banking Services Clerk Name Role Phone Elsewhere, Pcp Primary Care Provider Unavailabl e Encounter Details Date Type Department Care Team (Late st Contact Info) Description 09/06/2023 Clinical Communication [facility] [address] [place] [address] Yasmine Loco Social History Tobacco Use Types Packs/Day Years Used Date Smoking Tobacco: Never Smokeless Tobacco: Never [facility] Utilities Answer Date Recorded In the past 12 months has [facility] [employer], gas, oil, or water [employer] threatened to shut off services in your [...] CDT Procedure visit Department of Urology in [place] [address] [place] [address] Burke Strauss M.D. [facility] [place] [address] Discharge Disposition: Home or Self Care 12/07/2023 10:30 AM CDT Office Visit Department of Urology in [place] [address] [place] [phone] Burke Strauss M.D. [address] [place] [phone] Discharge Disposition: Home or Self Care documented as of this encounter Visit Diagnoses Diagnosis Hematuria Gross- Primary documented in this encounter Care Teams Banking Services Clerk Relationship Specialty Start Date End Date Elsewhere, Pcp PCP - General Internal Medicine 08/13/23 documented as of this encounter
--- OUTSIDE RECORDS SUMMARY | 2023-12-02 12:45 | XMS_ITS | Encounter Summary ---
Author Organization [facility] Address [address] [place] [address] Care Team Providers Care Office Support Specialist Name Role Phone Elsewhere, Pcp Primary Care Provider Unavailabl e Encounter Details Date Type Department Care Team (Late st Contact Info) Description 09/09/2023 Documentation Department of Urology in [place], [place] [address] [place] [phone] Ko Victoria M.D. [address] [place] [address] Social History Tobacco Use Types Packs/Day Years Used Date Smoking Tobacco: Never Smokeless Tobacco: Never [facility] Utilities Answer Date Recorded In the past 12 months has [facility] [employer], gas, oil, or water [employer] threatened to shut off services in your [...] [facility] place [facility] live 09/09/2023 Sex and [...] CDT Procedure visit Department of Urology in [place] [address] [place] [address] Burke Strauss M.D. [address] [place] [phone] Discharge Disposition: Home or Self Care 12/07/2023 10:30 AM CDT Office Visit Department of Urology in [address] [phone] Burke Strauss M.D. [address] [place] [phone] Discharge Disposition: Home or Self Care documented as of this encounter Visit Diagnoses Not on filedocumented in this encounter Care Teams Office Support Specialist Relationship Specialty Start Date End Date Elsewhere, Pcp PCP - General Internal Medicine 08/13/23 documented as of this encounter
--- OUTSIDE RECORDS SUMMARY | 2023-12-02 12:45 | XMS_ITS | Encounter Summary ---
Author Organization [facility] Address [address] [place] [address] Care Team Providers Care Survey Crew Chief Name Role Phone Elsewhere, Pcp Primary Care Provider Unavailabl e Reason for Referral * Outpatient (Routine) - Authorized Specialty Diagnoses / Procedures Referred By Contaraceli t Referred To Contact Urology Diagnoses Hematuria Paula Benton M.D. [address] [place] [phone] [facility] Referral ID Status Reason Start Date Expiration Date V isits Requested Visits Authorized [id number] Authorized 09/15/2023 03/16/2025 1 1 Encounter Details Date Type Department Care Team (Late st Contact Info) Description 09/15/2023 Clinical Communication [facility] [address] [place] [phone] Yasmine Loco Social History Tobacco Use Types Packs/Day Years Used Date Smoking Tobacco: Never Smokeless Tobacco: Never [facility] Utilities Answer Date Recorded In [...] CDT Procedure visit Department of Urology in [place], [place] [address] [place] [phone] Burke Strauss M.D. [facility] [place] [address] Discharge Disposition: Home or Self Care 12/07/2023 10:30 AM CDT Office Visit Department of Urology in [place], [place] [address] [place] [address] Burke Strauss M.D. [address] [place] [phone] Discharge Disposition: Home or Self Care Scheduled [...] documented as of this encounter Care Teams Survey Crew Chief Relationship Specialty Start Date End Date Elsewhere, Pcp PCP - General Internal Medicine 08/13/23 documented as of this encounter
--- OUTSIDE RECORDS SUMMARY | 2023-12-02 12:46 | XMS_ITS | Encounter Summary ---
Author Organization [facility] Address [address] [place] [address] Care Team Providers Care Lithographic Etcher Name Role Phone Elsewhere, Pcp Primary Care [...] has e electric, gas, oil, or water [employer] threatened to shut off services in your [...] CDT Procedure visit Department of Urology in [address] [address] Burke Strauss M.D. [address] [place] [phone] Discharge Disposition: Home or Self Care 12/07/2023 10:30 AM CDT Office Visit Department of Urology in [place] [address] [place] [address] Burke Strauss M.D. [address] [place] [phone] Discharge Disposition: Home or Self Care documented [...] on filedocumented in this encounter Care Teams Lithographic Etcher Relationship Specialty Start Date End Date Elsewhere, Pcp PCP - General Internal Medicine 08/13/23 documented as of this encounter
--- OUTSIDE RECORDS SUMMARY | 2023-12-02 12:46 | XMS_ITS | Encounter Summary ---
Author Organization [facility] Address [address] [place] [address] Care Team Providers Care Circulation Analyst Name Role Phone Elsewhere, Pcp Primary Care Provider Unavailabl e Reason for Visit * Reason Comments Urinary Problem Rapid Heart Rate Encounter Details Date Type Department Care Team (Latest Contact Info) Description 08/30/2023 7:35 PM CDT - 09/05/2023 4:09 PM CDT Hospital Encounter [facility], [facility], First Floor [address] [place] [address] Kirstin Hughes M.D. [address] [place] [phone] Mayur Alvarez M.D. [address] [place] [phone] Hematuria (Primary Dx); Tachycardia; Hematuria Gross Discharge [...] [facility] place to live 09/05/2023 Sex [...] PM CDT DISCHARGE SUMMARY BRIEF OVERVIEW Hospital: [facility] Discharge Provider: Mayur Alvarez M.D. Primary Team: [facility] Urology Surgery - Chief Helga Rojas Primary [...] CYSTOGRAM Mayur Alvarez M.D.White, Lindsay A, M.D. [facility] ROMB OR DISCHARGE DISPOSITION [place] [facility] [place]] ACTIVE ISSUES REQUIRING [...] CONSULT TO CARE MANAGEMENT IP CONSULT TO DRUM CARRIER WOUND CARE IP CONSULT TO HYPERBARIC MEDICINE CONDITION AT DISCHARGE improved Discharge instructions were provided to the patient and caregiver(s). documented in this encounter Discharge Instructions * Patient Instructions* Carmen Louis, R.N. - 08/31/2023 9:44 AM CDT The Senior LinkAge Line?? is a service of the [place] Board on Aging in partnership with [place] Agencies on Aging. It is a free service of the [facility] that connects older [place]ans and their families with the help they need. Call the Senior LinkAge Line?? at: 849.464.2946 M-F, 8am-4:30pm to connect with specialists that are available to assist you with your specific needsor check out their website at [email or web address] * Attachments The following attachments cannot be sent through Care Everywhere. * Cefdinir (By mouth) (Japanese) documented in this encounter Medications at Time [...] questions or concerns. Pager during business hours: [phone] Pager after hours: [phone] * Jeffery Valdez M.D. - 09/04/2023 10:34 [...] questions or concerns. Pager during business hours: [phone] Pager after hours: [phone] * Jeffery Valdez M.D. - 09/03/2023 4:10 [...] questions or concerns. Pager during business hours: [phone] Pager after hours: [phone] * Paula Hernandez M.D. - 09/02/2023 6:25 [...] questions or concerns. Pager during business hours: [phone] Pager after hours: [phone] * Michelle Willams R.N., C.W.C.N. - 09/01/2023 11:43 AM CDT [facility] Wound RN consulted to assess [...] Secondary Dressing Status Clean;Dry;Intact Changed by Wound alternative energy engineer Ongoing management Nursing;Wound/sectionizer Urine Assessment Urine Color Colorless Hematuria Scale [place] Urine Appearance Clear;Sediment Head to toe skin [...] update the patient. Son stated that a Novelty Printing Machine Operator visited the home and will be trying to assist both and patient with cares/coordination. OBJECTIVE Patient is located on [facility] room 111. Referrals were sent to the following agencies: Home Medical Care - Admitted Since 08/30/2023 Service Provider Request Status Selected Services Address Phone Fax Patient Preferred [facility] - [place] Pending - Request Sent N/A [address] [facility] [address] [phone] -- [facility] - Home Care Pending - Request Sent N/A [address] [facility] [address], [facility] [address] [phone] -- Home Health Care Pending - Request Sent N/A [address] [facility] [address] [address] [phone] -- [facility] Pending - Request Sent N/A [address] [facility] [phone] -- [facility] Pending - Request Sent N/A [address] [facility] [phone] -- [facility] Pending - Request Sent N/A [address] [facility] [address], [facility] [address] [phone] -- [facility] Home Health Declined Facility Full N/A [address] [facility] [phone] -- ASSESSMENT / PLAN ASSESSMENT Near Eastern Archaeology Lecturer attempted to contact patient on room phone but was unable to get through. Case Manageras able to reach his son who will update that patient that the preferred home health agency was unable to accept and that referrals would be sent to other home health agencies. Requested services arenursing for wound care and catheter and PT/OT. PLAN Near Eastern Archaeology Lecturer will follow up with referrals. Case Manger [...] questions or concerns. Pager during business hours: [phone] Pager after hours: [phone] * Paula Hernandez M.D. - 08/31/2023 10:45 [...] questions or concerns. Pager during business hours: [phone] Pager after hours: [phone] Associated attestation - Mayur Alvarez M.D. - 08/31/2023 12:14 PM CDT I agree with the Urology Chief Service plan for palliative cystoscopy under anesthesia, clot evacuation, proceed as indicated. We will plan for judicious irrigation given his recent bladder surgery and we will perform a cystogram at the end of the procedure. * Demarco Salazar, Mireille.D., R.Ph., [facility] - 08/31/2023 7:19 AM CDT Images [...] discontinuation of antibiotics. Pedrito Salazar Pharm.D., R.Ph., [facility] Admission Medication History Note Adherence issues: [...] Complete Set By: Demarco Salazar Pharm.D., R.Ph., [facility] at 08/31/2023 7:22 AM Taking? Last [...] an 83 y.o. male transferred to the [facility] ED for further management of gross [...] for CBI. He was then transferred to [facility] on 08/12; a CT cystogram was [...] was initiated on CBI and transferred to [facility] for further management. On my initial [...] for radiation proctitis SOCIAL HISTORY Lives in [place], [place] OBJECTIVE Vitals Blood pressure 134/84, pulse [...] & Screen Expiration 09/02/2023 23:59 Testing Location [facility] Imagin08/30/23 EXAM: US URINARY BLADDER COMPARISON: CT [...] hematuria, clot obstruction and was transferred to [facility] for further evaluation and management. Urinary bladder ultrasound showing 5 cm clot burden; catheter draining on fast-rate CBI after multiple rounds of hand irrigation. Plan - Continue CBI - Q2h hr hand irrigations - NPO overnight pending am re-evaluation - Hold Plavix, Xarelto for now The above was discussed with Drs. Venegas and Lefty, the chief urology residents control panel operator. Please page chief Urology [place] [phone] [place] [phone] afterhours. documented in this encounter Procedure Notes [...] on androgen deprivation therapy. 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 No scuba diving experience. Electronic health [...] 11 Referral Reason: Discharge Planning Primary Language: Japanese Rollway Man Services Used: No Person(s) present during interview: [...] Communication: Can write, Talks, Understands speaking, Understands Japanese, Reads Shopping: Needs assistance Medication Management: Independent Housekeeping: Needs assistance Meal Prep: Independent Assistive Devices: Walker - front wheeled, Eyeglasses, Hearing aid(s) Agency [facility] Provided: Jail/PT/OT Transportation: Support from family Baseline Services/Resources Primary care clinic and provider: ELSEWHERE, PCP Additional Resources: N/A Anticipated Needs Functional Status: Housekeeping, Shopping, Transportation use (drive car, use taxi/bus), Mobility, Transfer to/from bed, chair, etc., Bathing Assistive Devices: Eyeglasses, Hearing aid(s), Walker - front wheeled Services/Resources: Home health Agency Name: [facility] Provided: Jail/PT/OT Anticipated Modifications to the Patient's Home: None Transportation Needs: Support from family Does the patient need discharge transport arranged?: No Anticipated Discharge Destination: [place] [facility] [place]ESS[place] / PLAN Assessment: The mathematician research met with Kalen Srinivasan Gary to discuss his current hospitalization and home goingneeds. The patient was accompanied by son, Kar . The patient was a reliable historian. The role ofRN Near Eastern Archaeology Lecturer was reviewed. The patient reviewed his prior level of care and support system. The patient receives support from his and children. The patient described his living environment as a home with bedroom and bathroom on same floor withstairs to enter with rails. Housekeeping, grocery shopping, meal prep, and other household responsibilities have previously been completed by patient and patient's son. mathematician research discussed the patient's potential needs at dismissal [...] [facility]. Patient stated that [employer] was supposed to be set- up at discharge after the last hospital stay but that the company never received orders to start care and that he was told by nursing that due to his PICC removal he would not need care. Near Eastern Archaeology Lecturer will clarifywith home health team regarding if [...] chart and meeting with the patient, the mathematician research deemed the LACE+/readmission questions were appropriate. The [...] current readmission could have been prevented. The mathematician research will share this information with the care team. The patient reports understanding that he will dismiss from the hospital when medically stable. Thefollowing potential barriers to dismissal have been identified: Home Health Care Addendum 1230: Near Eastern Archaeology Lecturer called [facility]. They received the referral but declined due to being at capacity. Plan: The patient agrees with the following plan. Patient's anticipated discharge disposition is: Home with Home Healthcare Referrals sent. Transportation upon dismissal will be provided by family--Kar . mathematician research recommended home health services. mathematician research provided information regarding the dismissal process and the Senior Linkage Line ([place] Board on Aging) handout. mathematician research placed or requested the following hospital-based consult orders and/or referrals: None. mathematician research will follow up with the patient to [...] with updates and/or transition plan to come. mathematician research encouraged the patient to reach out with [...] CDT Pre-op Diagnosis Hematuria Post-op Diagnosis Hematuria Debridging Machine Operator A commercial lines account assistant actively participated and was necessary for [...] or filling defects. 5. Placement of [address] catheter with 20 cc in [...] The resectoscope was removed and a [address] catheter was placed with 20 [...] REVIEW OF SYSTEMS OBJECTIVE Initial Vitals Temperature 08/30/23 1948 37.1 ??C Pulse Rate 08/30/231944 (!) 145 [...] secondary to cystostomy closure presenting today from [facility] with concerns for worsening hematuria. He was [...] 08/30/2023 8:48 AM CDT Pt transferred from [facility] via EMS, pt c/o blocked jon cath that started today. Pt had a right uretal stent exchange and an open bladder repair 08/15/23 and was discharged 08/25. Pt had a3 way jon placed at [facility], and transferred here because the clots returned. [...] RN, CPN, CCDS, CCS, CRC Clinical Documentation Blade Changer Query created by: ELMER Barker, RN, CPN, [...] CDT Procedure visit Department of Urology in [place], [place] [address] [place] [address] Burke Strauss M.D. [address] [place] [address] Discharge Disposition: Home or Self Care 12/07/2023 10:30 AM CDT Office Visit Department of Urology in [place], [place] [address] [place] [address] Burke Strauss M.D. [address] [place] [phone] Discharge Disposition: Home or Self Care Pending [...] CDT Roxy Romero M.D. LAB BLOOD ADD-ON [facility] [address] [place] [address], [place] DTL [facility] [address] [place] [address] * (ABNORMAL) Basic Metabolic Panel (09/05/2023 4:52 AM CDT) Pathologist [facility] Potassium, S 3.6 3.6 - 5.2 mmol/L [...] [facility]/ZIP Co de Phone Number [facility] [address] [place] [address], [facility] [address] [place] [address] * (ABNORMAL) Basic Metabolic Panel (09/04/2023 8:15 PM CDT) [facility] Potassium, S 3.2(L) 3.6 - 5.2 [...] CDT Jeffery Valdez M.D. LAB BLOOD ADD-ON [facility] [address] [place] [address], [place] DTL [facility] [address] [place] [address] * (ABNORMAL) CBC without Differential (09/04/2023 8:15 PM CDT) Pathologist [facility] Hemoglobin 9.6(L) 13.2 - 16.6 g/dL 09/04/2023 [...] M.D. LAB BLOOD ADD-ON Performing Organization Address City/State/[facility] [place] [address], [facility] [address] [place] [address] * Transfuse Red Blood Cells : (09/04/2023 [...] BANK TEST ORDERABLES Performing Organization Address [facility]/ZIP Co de Phone Number [facility] [address] [place] [address], [place] STRM [facility] [address] [place] [address] * Heparin Anti-Xa Assay (09/04/2023 7:34 AM [...] NON A DD-ON Performing Organization Address [facility] Co de Phone Number [facility] [address] [place] [address], [place] DTL [facility] [address] [place] [address] * (ABNORMAL) CBC without Differential (09/04/2023 7:34 [...] CDT Paula Hernandez M.D. LAB BLOOD ADD-ON [address] [address], [address] [address] * Heparin Anti-Xa Assay (09/04/2023 12:30 AM [...] NON A DD-ON Performing Organization Address [facility] Co de Phone Number [facility] [address] [place] [address] * Bacterial Culture, Aerobic + Susceptibility, Urine (09/03/2023 10:50 AM CDT) [facility] Urine Culture No growth after 1 day of incubation. 09/04/2023 8:52 AM CDT DT Urine (Urine, Indwelling Catheter) 09/03/2023 10:50 AM CDT 09/03/2023 11:53 AM CDT Comment:Specimen Source Site : Urine Jeffery Valdez M.D. LAB MICROBIOLOGY - G ENERAL ORDERABLES Performing Organization Address [facility] Co de Phone Number [facility] [address] [place] [address] * (ABNORMAL) CBC without Differential (09/03/2023 3:29 [...] LAB BLOOD ADD-ON Performing Organization Address [facility] Co de Phone Number [facility] [address] [place] [address] * Heparin Anti-Xa Assay (09/03/2023 3:29 AM [...] NON A DD-ON Performing Organization Address [facility] Co de Phone Number [facility] [address] [place], [place] [phone] [place] [address] DTL [facility] [address] [address] * Heparin Anti-Xa Assay (09/02/2023 2:57 AM CDT) [facility] Heparin Anti-Xa, P 0.24 IU/mL 2023 [...] Alvarez M.D. LAB BLOOD NON A DD-ON [address] [address], [address] [address] [address] * (ABNORMAL) CBC without Differential (09/01/2023 8:16 PM CDT) [facility] Hemoglobin 8.5(L) 13.2 - 16.6 g/dL [...] LAB BLOOD ADD-ON Performing Organization Address [facility] Co de Phone Number [facility] [address] [place] [address], [facility] [address] [place] [address] * Heparin Anti-Xa Assay (09/01/2023 6:50 PM [...] NON A DD-ON Performing Organization Address [facility] Co de Phone Number [facility] [address] [place] [address], [facility] [address] [place] [address] * APTT (Activated Partial Thromboplastin Time) (09/01/2023 9:05 AM CDT) Activated Partial Thrombopl Time, P 28 25 - 37 sec 09/01/2023 9:35 AM CDT STMA Blood (Blood, Venous) 09/01/2023 9:05 AM CDT 09/01/2023 9:21 AM CDT Paula Hernandez M.D. LAB BLOOD ADD-ON [facility] [address] [place] [address], [facility] [address] [place] [address] * (ABNORMAL) Basic Metabolic Panel (08/31/2023 9:36 [...] [facility]/ZIP Co de Phone Number [facility] [address] [place], [place] [phone] [place] [address] D[facility] [address] [place] [address] * (ABNORMAL) CBC without Differential (08/31/2023 9:36 [...] [place] [address] [place] [address], [facility] [address] [place] [address] * FL Fluoro Less Than 1 Hour [...] Hemoglobin (08/31/2023 4:21 AM CDT) [facility] Hemoglobin 7.8(L) 13.2 - 16.6 g/dL 08/31/2023 4:47 AM CDT DTL Blood (Blood, Venous) 08/31/2023 4:21 AM CDT 08/31/2023 4:35 AM CDT Kimi Vieira M.D., M.S. LAB BLOO D ADD-ON [facility] [address] [place] [address], [facility] [address] [place] [address] * Type and Screen (with Reflex Antibody ID) (08/30/2023 9:50 PM CDT) [facility] ABORh O Pos Not applicable 08/30/2023 10:17 PM CDT STRM Antibody Screen Negative Negative 08/30/2023 10:31 PM CDT STRM Type & Screen Expiration 09/02/2023 23:59 08/30/2023 10:17 PM CDT STRM Testing Location [facility] DEFAULT 08/30/2023 9:58 PM CDT STRM Blood (Blood, Venous) 08/30/2023 9:50 PM CDT 08/30/2023 9:58 PM CDT Shannan Correa D.O., M.H.A. LAB BLOOD BANK TEST ORDERABLES [address] [place] [address] * Lactate (08/30/2023 9:50 PM CDT) Pathologist [facility] Lactate, P 1.8 0.5 - 2.2 mmol/L 08/30/2023 10:09 PM CDT STMA Blood (Blood, Venous) 08/30/2023 9:50 PM CDT 08/30/2023 9:55 PM CDT Shannan Correa D.O., M.H.A. LAB BLOOD NON ADD-ON Performing Organization Address City/[facility]/ZIP [place] [address], [place] [address] * (ABNORMAL) Basic Metabolic Panel (08/30/2023 9:49 [...] [place] [address] [place] [address], [facility] [address] [place] [address] * (ABNORMAL) CBC with Differential, Blood (08/30/2023 [...] [place] [address] [place] [address], [place] STMA [facility] [address] [place] [address] DHPM [facility] [address] [place] [address] * DX Chest AP or PA and [...] CDT) Ventricular Rate ECG/Min 145 BPM MUSE OR Interval 136 ms MUSE QRSD Interval 64 ms MUSE QT Interval 260 ms MUSE QTC Interval 403 ms MUSE P [place] 44 degrees MUSE R [place] 9 degrees MUSE T Wave [place] -76 degrees MUSE 08/30/2023 7:44 PM CDT [...] give total of 40 mEq Dissolve per recommendations. Do NOT chew or swallow tablet., [...] Sarah Morgan R.N. - Reason: See Provider Order)7877 (Unheld by provider - Provider: Jeffery Valdez [...] give total of 40 mEq Dissolve per recommendations. Do NOT chew or swallow tablet., Monitor the following for replacement: Potassium, Replace Potassium per: Standard Schedule 1077 (Given - Provider: Merlyn Treadwell R.N.) rivaroxaban [...] refused) 0813 (Given - Provider: Tayler Espinoza R.N.)204 (Given - Provider: Sarah Quintana R.N.) 0912 [...] Repeat anti-Xa: 6 hours after Heparin resumed 180 (New Bag - Provider: Sarah Morgan RJonahNJonah - Comment: verified with Tayler MCCULLOUGH) 0125 (Rate/Dose Change - Provider: Gaye Dillard R.N. - Comment: no change)0129 (New Bag - Provider: Gaye Dillard R.N.)0717 (Handoff - Provider: Gaye Dillard R.N.)0847 (Rate/Dose Change - Provider: Joy Jackson R.N. - Comment: with JAMEL Lester)1112 (Stopped - Provider: Joy Jackson R.N.) Lactated [...] intravenous, As needed, antiXa 0.1-0.19, Starting on [facility] 09/03/23 at 1608, Intensity type: Moderate, Anti-Xa < 0.1: Loading Dose (Units/kg): 60, Anti-Xa 0.1-0.19: Loading Dose (Units/kg): 30, Anti-Xa > 0.19: Loading Dose (Units/kg): 0 Or heparin (porcine) 1,000 unit/mL injection 5,500 Units (CANCELED) 5,500 Units (rounded from 5,544 Units = 60 Units/kg ? 92.4 kg), intravenous, As needed, antiXa less than 0.1, Starting on [facility] 09/03/23 at 1608, Intensity type: Moderate, [...] 2256 documented in this encounter Care Teams Circulation Analyst Relationship Specialty Start Date End Date Elsewhere, Pcp PCP - General Internal Medicine 08/13/23 documented as of this encounter
--- OUTSIDE RECORDS SUMMARY | 2023-12-02 12:46 | XMS_ITS | Encounter Summary ---
Author Organization [facility] Address [address] [place] [id number] Care Team Providers Care Part Time Receptionist Name Role Phone Elsewhere, Pcp Primary Care Provider Unavailabl e Encounter Details Date Type Department Care Team (Late st Contact Info) Description 08/31/2023 12:34 PM CDT Anesthesia Event [facility]IN OR [address] [place] [address] [phone] Joe Stoll M.D. [address] [place] [phone] Benjamin Williamson APRN, WEB PRESS OPERATOR [address] [place] [phone] Anesthesia Record Procedure Summary Procedure Name Responsible [...] Tissue 08/23/23 0052 by Lisa Serrano RJonahNJonah (RETIRED) Bladder Irrigation 08/15/23; 1143; Dr. De Paz; Continuous; Three-way; 24 Fr; 30 mL (balloon filled with 10 ml water); Yes; 08/31/23; 1304 08/15/23 1143 by Janina Coronado R.N. 08/31/23 1304 by Jacqui Mehta R.N. Wound [...] Patient discharged 08/30/232048 by Chelsea Argueta R.N. 09/05/23699 by Vanessa Leo RNarendra Supraglottic Airway Placement Date: 08/31/23; Placement Time: 1243 (created via procedure documentation); Mask Ventilation: Not attempted; Brand: Unique; Size: 5; Removal Date: 08/31/23; Removal Time: 1402 08/31/23 1243 by Benjamin Williamson APRN, GAVIN 08/31/23 1402 by Benjamin Williamson APRN, WEB PRESS OPERATOR Indwelling Urinary Catheter Placement Date: 08/31/23; Placement Time: 1359; Inserted by: Siddhartha Venegas MD; Size: 24 Fr.; Balloon Size: (20 ml fill saline); Removal Date: 08/31/23; Removal Time: 1403 08/31/23 1359 by Jacqui Mehta R.N. 08/31/23 1403 by Jacqui Mehta R.N. (RETIRED) Bladder Irrigation 08/31/23; 1403; Siddhartha Venegas MD; Stopped (DC'd CBI); Three-way; 24 Fr; 30 mL (20 ml fill saline); Yes; 09/03/23; 1103; Per order 08/31/23 1403 by Jacqui Mehta R.NJonah 09/03/23 1103 by Sarah Morgan RJonahN. documented in this encounter Social History Tobacco Use Types Packs/Day Years Used Date Smoking Tobacco: Never Smokeless Tobacco: Never [employer] Utilities Answer Date Recorded In the past 12 months has [facility] [employer], gas, oil, or water [employer] threatened to shut off services in your [...] Procedure Summary Date: 08/31/23 Room / Location: [address] 01 [facility] in [place], [place] Anesthesia Start: 1234 Anesthesia Stop: 1420 [...] Hematuria [R31.9] Pre-op diagnosis: Hematuria [R31.9] Location: [address] 01 [facility] in [place], [place] Providers: Mayur Alvarez M.D. Pertinent components [...] patient / legal guardian, or through an wire dropper; patient evaluated and approved for anesthesia / [...] CDT Procedure visit Department of Urology in [place], [place] [address] [place] [phone] Burke Strauss M.D. [address] [place] [address] Discharge Disposition: Home or Self Care 12/07/2023 10:30 AM CDT Office Visit Department of Urology in [place], [place] [address] [place] [phone] Burke Strauss M.D. [facility] [place] [address] Discharge Disposition: Home or Self [...] mg documented in this encounter Care Teams Part Time Receptionist Relationship Specialty Start Date End Date Elsewhere, Pcp PCP - General Internal Medicine 08/13/23 documented as of this encounter
--- OUTSIDE RECORDS SUMMARY | 2023-12-02 12:46 | XMS_ITS | Encounter Summary ---
Author Organization [facility] Address [address] [place] [address] Care Team Providers Care Any Commodity Buyer Name Role Phone Elsewhere, Pcp Primary Care [...] has e electric, gas, oil, or water [employer] threatened to shut off services in your [...] visit Department of Urology in [place] [address] [place] [address] Burke Strauss M.D. [address] [place] [phone] Discharge Disposition: Home or Self Care 12/07/2023 10:30 AM CDT Office Visit Department of Urology in [place] [address] [place] [address] Burke Strauss M.D. [address] [place] [phone] Discharge Disposition: Home or Self Care documented [...] on filedocumented in this encounter Care Teams Any Commodity Buyer Relationship Specialty Start Date End Date Elsewhere, Pcp PCP - General Internal Medicine 08/13/23 documented as of this encounter
--- OUTSIDE RECORDS SUMMARY | 2023-12-02 12:46 | XMS_ITS | Encounter Summary ---
Author Organization [facility] Address [address] [place] [address] Care Team Providers Care Sixth Grade Teacher Name Role Phone Elsewhere, Pcp Primary Care Provider Unavailabl e Encounter Details Date Type Department Care Team (Late st Contact Info) Description 08/26/2023 Orders Only Department of Urology in [place], [place] [address] [place] [phone] Paula Hernandez M.D. [address] [place] [address] Social History Tobacco Use Types Packs/Day Years Used Date Smoking Tobacco: Never Smokeless Tobacco: Never [facility] Utilities Answer Date Recorded In the past 12 months has [facility] electric, gas, oil, or water [employer] threatened to shut off services in [...] your living situation today? I have a [facility] place to live 08/13/2023 Sex and Gender Information Value Date Recorded Sex Assigned at Not on file Gender Identity Not on file Sexual Orientation Not on file documented as of this encounter Plan of Treatment Upcoming Encounters Date Type Department Care Team (Latest Contact Info) Description 12/07/2023 10:15 AM CDT Procedure visit Department of Urology in [place] [address] [place] [address] Burke Strauss M.D. [address] [place] [phone] Discharge Disposition: Home or Self Care 12/07/2023 10:30 AM CDT Office Visit Department of Urology in [place], [place] [address] [place] [address] Burke Strauss M.D. [address] [place] [address] Discharge Disposition: Home or Self Care documented as of this encounter Visit Diagnoses Not on filedocumented in this encounter Care Teams Sixth Grade Teacher Relationship Specialty Start Date End Date Elsewhere, Pcp PCP - General Internal Medicine 08/13/23 documented as of this encounter
--- OUTSIDE RECORDS SUMMARY | 2023-12-02 12:46 | XMS_ITS | Encounter Summary ---
Author Organization [facility] Address [address] [place] [address] Care Team Providers Care Admissions Recruiter Name Role Phone Elsewhere, Pcp Primary Care Provider Unavailabl e Encounter Details Date Type Department Care Team (Late st Contact Info) Description 08/30/2023 Documentation Department of Urology in [place], [place] [address] [place] [address] Corin Ring M.D. [address] [place] [phone] Social History Tobacco Use Types Packs/Day Years Used Date Smoking Tobacco: Never Smokeless Tobacco: Never [facility] Utilities Answer Date Recorded In the past 12 months has [facility] [employer], gas, oil, or water [employer] threatened to shut off services in your [...] CDT Procedure visit Department of Urology in [place] [address] [place] [address] Burke Strauss M.D. [address] [place] [phone] Discharge Disposition: Home or Self Care 12/07/2023 10:30 AM CDT Office Visit Department of Urology in [place] [address] [place] [phone] Burke Strauss M.D. [address] [place] [phone] Discharge Disposition: Home or Self Care documented as of this encounter Visit Diagnoses Not on filedocumented in this encounter Care Teams Admissions Recruiter Relationship Specialty Start Date End Date Elsewhere, Pcp PCP - General Internal Medicine 08/13/23 documented as of this encounter
--- OUTSIDE RECORDS SUMMARY | 2023-12-02 12:46 | XMS_ITS | Encounter Summary ---
Author Organization [facility] Address [address] [place] [address] Care Team Providers Care Senior Technical Analyst Name Role Phone Elsewhere, Pcp Primary Care Provider Unavailabl e Encounter Details Date Type Department Care Team (Latest Contact Info) Description 08/30/2023 Intake [facility] Social History Tobacco Use Types Packs/Day Years Used Date Smoking Tobacco: Never Smokeless Tobacco: Never [facility] Utilities Answer Date Recorded In the [...] CDT Procedure visit Department of Urology in [place] [address] [place] [address] Burke Strauss M.D. [facility] [place] [address] Discharge Disposition: Home or Self Care 12/07/2023 10:30 AM CDT Office Visit Department of Urology in [place] [address] [place] [address] Burke Strauss M.D. 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
--- OUTSIDE RECORDS SUMMARY | 2023-12-02 12:46 | XMS_ITS | Encounter Summary ---
Author Organization [facility] Address [address] [place] [address] Care Team Providers Care Senior Payroll Administrator Name Role Phone Elsewhere, Pcp Primary Care Provider Unavailabl e Reason for Visit * Reason Comments Urinary Problem Rapid Heart Rate Encounter Details Date Type Department Care Team (Late st Contact Info) Description 08/31/2023 12:36 PM CDT - 08/31/2023 2:31 PM CDT Surgery RST ROMB MAIN OR [address] [place] [address] Mayur Alvarez M.D. [address] [place] [phone] CYSTOSCOPY EVACUATION CLOTS Social History Tobacco Use [...] PM CDT DISCHARGE SUMMARY BRIEF OVERVIEW Hospital: [facility] Discharge Provider: Mayur Alvarez M.D. Primary [...] CYSTOGRAM Mayur Alvarez M.D.White, Lindsay A, M.D. [facility] ROMB OR DISCHARGE DISPOSITION Home-Health Care [facility] [6] ACTIVE ISSUES REQUIRING FOLLOW UP OUTPATIENT [...] CONSULT TO CARE MANAGEMENT IP CONSULT TO STEAM CLEANER WOUND CARE IP CONSULT TO HYPERBARIC MEDICINE CONDITION AT DISCHARGE improved Discharge instructions were provided to the patient and caregiver(s). documented in this encounter Discharge Instructions * Patient Instructions* Carmen Louis, R.N. - 08/31/2023 9:44 AM CDT The Senior LinkAge Line?? is a service of the [place] Board on Aging in partnership with [place]'s Area Agencies on Aging. It is a free service of the [facility] that connects older [place] and their families with the help they need. Call the Senior LinkAge Line?? at: [phone] M-F, 8am-4:30pm to connect with specialists that are available to assist you with your specific needsor check out their website at [email or web address] [email or web address] [email or web address] * Attachments The following attachments cannot be [...] questions or concerns. Pager during business hours: [phone] Pager after hours: [phone] * Jeffery Valdez M.D. - 09/04/2023 10:34 [...] questions or concerns. Pager during business hours: [phone] Pager after hours: [phone] * Jeffery Valdez M.D. - 09/03/2023 4:10 [...] questions or concerns. Pager during business hours: [phone] Pager after hours: [phone] * Paula Hernandez M.D. - 09/02/2023 6:25 [...] questions or concerns. Pager during business hours: [phone] Pager after hours: [phone] * Michelle Willams R.N., C.W.C.N. - 09/01/2023 11:43 AM CDT [facility] Wound [...] Secondary Dressing Status Clean;Dry;Intact Changed by Wound fire sprinkler installer Ongoing management Nursing;Wound/scientific process operator Urine Assessment Urine Color Colorless Hematuria Scale [place] Urine Appearance Clear;Sediment Head to toe skin [...] nursing. They agree to the plan. The [facility] RN will continue to see [...] update the patient. Son stated that a Medical Reimbursement Specialist visited the home and will be trying to assist both and patient with cares/coordination. OBJECTIVE Patient is located on [facility] room 111. Referrals were sent to the following agencies: Home Medical Care - Admitted Since 08/30/2023 Service Provider Request Status Selected Services Address Phone Fax Patient Preferred [facility] [place] Pending - Request Sent N/A [address], [facility] [phone] -- [facility] - Request Sent N/A [address] [facility] [address], [facility] [address] -- Home Health Care Pending - Request Sent N/A [address], [facility] [address] -- [facility] Pending - Request Sent N/A [address] [facility] [phone] -- [facility] Pending - Request Sent N/A [address] [facility] [phone] -- [facility] Pending - Request Sent N/A [address] [facility] [address], [facility] [address] [phone] -- [facility] Home Health Declined Facility Full N/A [address] [facility] [phone] -- ASSESSMENT / PLAN ASSESSMENT Filler And Trimmer attempted to contact patient on room phone but was unable to get through. Case Manageras able to reach his son who will update that patient that the preferred home health agency was unable to accept and that referrals would be sent to other home health agencies. Requested services arenursing for wound care and catheter and PT/OT. PLAN Filler And Trimmer will follow up with referrals. Case Manger [...] questions or concerns. Pager during business hours: [phone] Pager after hours: [phone] * Paula Hernandez M.D. - 08/31/2023 10:45 [...] questions or concerns. Pager during business hours: [phone] Pager after hours: [phone] Associated attestation - Mayur Alvarez M.D. - 08/31/2023 12:14 PM CDT I agree with the Urology Chief Service plan for palliative cystoscopy under anesthesia, clot evacuation, proceed as indicated. We will plan for judicious irrigation given his recent bladder surgery and we will perform a cystogram at the end of the procedure. * Demarco Salazar, PharmJonahD., R.Ph., [facility] - 08/31/2023 7:19 AM CDT [...] discontinuation of antibiotics. Pedrito Salazar Pharm.D., R.Ph., [facility] Admission Medication History Note Adherence [...] Complete Set By: Demarco Salazar Pharm.D., R.Ph., [facility] at 08/31/2023 7:22 AM Taking? [...] an 83 y.o. male transferred to the [facility] ED for further management of gross [...] for CBI. He was then transferred to [facility] on 08/12; a CT cystogram was [...] was initiated on CBI and transferred to [facility] for further management. On my initial [...] for radiation proctitis SOCIAL HISTORY Lives in [place], [place] OBJECTIVE Vitals Blood pressure 134/84, pulse [...] & Screen Expiration 09/02/2023 23:59 Testing Location Java Imagin08/30/23 EXAM: US URINARY BLADDER COMPARISON: CT [...] hematuria, clot obstruction and was transferred to [facility] for further evaluation and management. Urinary bladder ultrasound showing 5 cm clot burden; catheter draining on fast-rate CBI after multiple rounds of hand irrigation. Plan - Continue CBI - Q2h hr hand irrigations - NPO overnight pending am re-evaluation - Hold Plavix, Xarelto for now The above was discussed with Drs. Venegas and Lefty, the chief urology residents carton stapler. Please page chief Urology [place] [phone] [place] [phone] afterhours. documented in this encounter Procedure Notes [...] deprivation therapy. 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 on [...] Referral Reason: Discharge Planning Primary Language: Taiwanese Event Management Consultant Services Used: No Person(s) present during interview: Person(s) Present During Interview: patient and child Kar History of Present Illness #1 Hematuria Social History Support System: spouse, children, and home care staff Primary Caregiver: self and family Finance/Insurance Primary insurance: MEDICARE A AND B Secondary insurance: [employer] benefits: No Advance Directives Legal Decision Maker: [...] front wheeled, Eyeglasses, Hearing aid(s) Agency Name: [facility] Provided: Correction/PT/OT Transportation: Support [...] arranged?: No Anticipated Discharge Destination: Home-Health Care [facility] ASSESSMENT / PLAN Assessment: The meat and seafood clerk met with Kalen Vega to discuss his current hospitalization and home goingneeds. The patient was accompanied by son, Kar . The patient was a reliable historian. The role ofRN Filler And Trimmer was reviewed. The patient reviewed his prior level of care and support system. The patient receives support from his and children. The patient described his living environment as a home with bedroom and bathroom on same floor withstairs to enter with rails. Housekeeping, grocery shopping, meal prep, and other household responsibilities have previously been completed by patient and patient's son. meat and seafood clerk discussed the patient's potential needs at dismissal based on their home setting, previous needs and responsibilities, homebound status, and relevant assessments with the patient. The patient will be safe and supported to return home with [facility] or previous services noted above when [...] PICC removal he would not need care. Filler And Trimmer will clarifywith home health team regarding if [...] chart and meeting with the patient, the meat and seafood clerk deemed the LACE+/readmission questions were appropriate. The [...] current readmission could have been prevented. The meat and seafood clerk will share this information with the care team. The patient reports understanding that he will dismiss from the hospital when medically stable. Thefollowing potential barriers to dismissal have been identified: Home Health Care Addendum 1230: Filler And Trimmer called [facility]. They received the referral but declined due to being at capacity. Plan: The patient agrees with the following plan. Patient's anticipated discharge disposition is: Home with Home Healthcare Referrals sent. Transportation upon dismissal will be provided by family--Kar . meat and seafood clerk recommended home health services. meat and seafood clerk provided information regarding the dismissal process and the Senior Linkage Line ([place] Board on Aging) handout. meat and seafood clerk placed or requested the following hospital-based consult orders and/or referrals: None. meat and seafood clerk will follow up with the patient to [...] with updates and/or transition plan to come. meat and seafood clerk encouraged the patient to reach out with [...] CDT Pre-op Diagnosis Hematuria Post-op Diagnosis Hematuria Ironer A assistant golf course superintendent actively participated and was necessary for one [...] or filling defects. 5. Placement of [address] catheter with 20 cc in [...] The resectoscope was removed and a [address] catheter was placed with 20 [...] secondary to cystostomy closure presenting today from [place] with concerns for worsening hematuria. He was [...] 08/30/2023 8:48 AM CDT Pt transferred from [facility] via EMS, pt c/o blocked jon cath that started today. Pt had a right uretal stent exchange and an open bladder repair 08/15/23 and was discharged 08/25. Pt had a3 way jon placed at [facility], and transferred here because the clots returned. [...] RN, CPN, CCDS, CCS, CRC Clinical Documentation Worship Director Query created by: ELMER Barker, RN, CPN, CCDS, CCS, CRC 08/31/2023 08:02 AM CDT </LCI> * Hospital Course - Puala Hernandez M.D. - 09/05/2023 2:15 PM CDT [...] CDT Procedure visit Department of Urology in [address] [phone] Burke Strauss M.D. [address] [place] [phone] Discharge Disposition: Home or Self Care 12/07/2023 10:30 AM CDT Office Visit Department of Urology in [place], [place] [address] [place] [phone] Burke Strauss M.D. [address] [place] [phone] Discharge Disposition: Home or Self Care Pending [...] LAB BLOOD ADD-ON Performing Organization Address City/[facility]/ZIP Co de Phone Number [facility] [address] [place], [place] [address] [address] [place] [address] * (ABNORMAL) Basic Metabolic Panel (09/05/2023 4:52 AM CDT) [facility] Potassium, S 3.6 3.6 - 5.2 mmol/L [...] Jakob De Paz M.D. LAB BLOOD ADD-ON [facility] [address] [place] [address], [facility] DTL [facility] [address] [place] [address] * (ABNORMAL) Basic Metabolic Panel (09/04/2023 8:15 [...] CDT Jeffery Valdez M.D. LAB BLOOD ADD-ON [facility] [address] [place] [address], [facility] [address] [place] [address] * (ABNORMAL) CBC without Differential (09/04/2023 8:15 [...] CDT Jeffery Valdez M.D. LAB BLOOD ADD-ON [facility] [address] [place] [address], [facility] [address] [place] [address] * Transfuse Red Blood Cells : (09/04/2023 [...] BLOOD BANK TEST ORDERABLES Performing Organization Address [facility] Co de Phone Number [facility] [address] [place] [address], [facility] STRM [facility] [address] [place] [address] * Heparin Anti-Xa Assay (09/04/2023 7:34 AM CDT) Pathologist [facility] Heparin Anti-Xa, P 0.12 IU/mL 2023 8:14 [...] BLOOD NON A DD-ON Performing Organization Address City/[facility] Co de Phone Number [facility] [address] [place] [address], [facility] DTL [facility] [address] [place] [address] * (ABNORMAL) CBC without Differential (09/04/2023 7:34 [...] CDT Paula Hernandez M.D. LAB BLOOD ADD-ON [address] [address], [facility] [place] [address] * Heparin Anti-Xa Assay (09/04/2023 12:30 AM CDT) [facility] Heparin Anti-Xa, P 0.27 IU/mL 2023 1:21 [...] BLOOD NON A DD-ON Performing Organization Address City/[facility] Co de Phone Number [facility] [address] [place] [address] * Bacterial Culture, Aerobic + Susceptibility, Urine (09/03/2023 10:50 AM CDT) [facility] Urine Culture No growth after 1 day of incubation. 09/04/2023 8:52 AM CDT DTL Urine (Urine, Indwelling Catheter) 09/03/2023 10:50 AM CDT 09/03/2023 11:53 AM CDT Comment:Specimen Source Site : Urine Jeffery Valdez M.D. LAB MICROBIOLOGY - G ENERAL ORDERABLES Performing Organization Address City/[facility] Co de Phone Number [facility] [address] [place] [address] * (ABNORMAL) CBC without Differential (09/03/2023 3:29 AM CDT) [facility] Hemoglobin 8.0(L) 13.2 - 16.6 g/dL 09/03/2023 [...] LAB BLOOD ADD-ON Performing Organization Address City/[facility]/ZIP Co de Phone Number [facility] [address] [place] [address] * Heparin Anti-Xa Assay (09/03/2023 3:29 AM [...] BLOOD NON A DD-ON Performing Organization Address City/[facility]/ZIP Co de Phone Number [facility] [address] [facility] [address] [place] [address] * Heparin Anti-Xa Assay (09/02/2023 2:57 AM [...] Alvarez M.D. LAB BLOOD NON A DD-ON [id number] [place] [address] [place] [address] * (ABNORMAL) CBC without Differential (09/01/2023 8:16 PM CDT) Pathologist [facility] Hemoglobin 8.5(L) 13.2 - 16.6 g/dL 09/01/2023 [...] M.D. LAB BLOOD ADD-ON Performing Organization Address [facility]/ZIP Co de Phone Number [facility] [address] [place], [place] [address] [place] [address] [address] [place] [address] * Heparin Anti-Xa Assay (09/01/2023 6:50 PM [...] BLOOD NON A DD-ON Performing Organization Address City/[facility]/ZIP Co de Phone Number [facility] [address] [place] [address], [facility] [address] [place] [address] * APTT (Activated Partial Thromboplastin Time) (09/01/2023 9:05 AM CDT) Activated Partial Thrombopl Time, P 28 25 - 37 sec 09/01/2023 9:35 AM CDT STMA Blood (Blood, Venous) 09/01/2023 9:05 AM CDT 09/01/2023 9:21 AM CDT Paula Hernandez M.D. LAB BLOOD ADD-ON [facility] [address] [place] [address], [facility] [address] [place] [address] * (ABNORMAL) Basic Metabolic Panel (08/31/2023 9:36 PM CDT) [facility] Potassium, S 4.0 3.6 - 5.2 mmol/L [...] CDT Paula Hernandez M.D. LAB BLOOD ADD-ON [facility] [address] [place] [address], [facility] [address] [place] [address] * (ABNORMAL) CBC without Differential (08/31/2023 9:36 [...] CDT Paula Hernandez M.D. LAB BLOOD ADD-ON [facility] [address] [place] [address], [facility] [address] [place] [address] * [place] Fluoro Less Than 1 Hour [...] (ABNORMAL) Hemoglobin (08/31/2023 4:21 AM CDT) Pathologist [facility] Hemoglobin 7.8(L) 13.2 - 16.6 g/dL 08/31/2023 4:47 AM CDT DTL Blood (Blood, Venous) 08/31/2023 4:21 AM CDT 08/31/2023 4:35 AM CDT Kimi Vieira M.D., M.S. LAB BLOO D ADD-ON Performing Organization Address [facility] Co de Phone Number [facility] [address] [place] [address], [facility] DTL [facility] [address] [place] [address] * Type and Screen (with Reflex Antibody ID) (08/30/2023 9:50 PM CDT) Pathologist [facility] ABORh O Pos Not applicable 08/30/2023 10:17 PM CDT STRM Antibody Screen Negative Negative 08/30/2023 10:31 PM CDT STRM Type & Screen Expiration 09/02/2023 23:59 08/30/2023 10:17 PM CDT STRM Testing Location Marcio DEFAULT 08/30/2023 9:58 PM CDT STRM Blood (Blood, Venous) 08/30/2023 9:50 PM CDT 08/30/2023 9:58 PM CDT Shannan Correa D.O., M.H.A. LAB BLOOD BANK TEST ORDERABLES Performing Organization Address [facility]/ZIP Co de Phone Number [facility] [address] [place] [address], [facility] STRM [facility] [address] [place] [address] * Lactate (08/30/2023 9:50 PM CDT) Lactate, P 1.8 0.5 - 2.2 mmol/L 08/30/2023 10:09 PM CDT STMA Blood (Blood, Venous) 08/30/2023 9:50 PM CDT 08/30/2023 9:55 PM CDT Shannan Correa D.O., M.H.A. LAB BLOOD NON ADD-ON [facility] [address] [place] [address], [facility] STMA [address] [address] * (ABNORMAL) Basic Metabolic Panel (08/30/2023 9:49 [...] Correa D.O. M.H.A. LAB BLOOD ADD- ON [facility] [address] [place] [address], [facility] STMA [facility] [address] [place] [address] * (ABNORMAL) CBC with Differential, Blood (08/30/2023 [...] Correa D.O., M.H.A. LAB BLOOD ADD- ON [facility] [address] [place] [address], [place] STMA [facility] [address] [place] [address] [facility] [address] [place] [address] * DX Chest AP or PA and [...] CDT) Ventricular Rate ECG/Min 145 BPM MUSE SC Interval 136 ms MUSE QRSD Interval 64 ms MUSE QT Interval 260 ms MUSE QTC Interval 403 ms MUSE P [place] 44 degrees MUSE R [place] 9 degrees MUSE T Wave [place] -76 degrees MUSE 08/30/2023 7:44 PM CDT [...] give total of 40 mEq Dissolve per novelty balloon assembler and packer recommendations. Do NOT chew or swallow tablet., Monitor the following for replacement: Potassium, Replace Potassium per: Standard Schedule 233 (Given - Provider: Merlyn Treadwell R.N.) rivaroxaban [...] 0812 (Given - Provider: Tayler Espinoza R.N.) 09 (Given - Provider: Vanessa Leo R.N.) sennosides-docusate [...] Quintana R.N.) 0916 (Given - Provider: Vanessa Leo, R.N.) Continuous Medication Order 09/03/2023 09/04/2023 09/05/2023 [...] Brittni Howe RJonahNJonah)0722 (New Bag - Provider: Mayur NolascoNJonah - Comment: verified with Brittni MCCULLOUGH) heparin [...] intravenous, As needed, antiXa 0.1-0.19, Starting on [facility] 09/03/23 at 1608, Intensity type: Moderate, Anti-Xa < 0.1: Loading Dose (Units/kg): 60, Anti-Xa 0.1-0.19: Loading Dose (Units/kg): 30, Anti-Xa > 0.19: Loading Dose (Units/kg): 0 Or heparin (porcine) 1,000 unit/mL injection 5,500 Units (CANCELED) 5,500 Units (rounded from 5,544 Units = 60 Units/kg ? 92.4 kg), intravenous, As needed, antiXa less than 0.1, Starting on [facility] 09/03/23 at 1608, Intensity type: [...] 2256 documented in this encounter Care Teams Senior Payroll Administrator Relationship Specialty Start Date End Date Elsewhere, Pcp PCP - General Internal Medicine 08/13/23 documented as of this encounter
--- OUTSIDE RECORDS SUMMARY | 2023-12-02 12:47 | XMS_ITS | Encounter Summary ---
Author Organization [facility] Address [address] [place] [address] Care Team Providers Care Patient Portal Representative Name Role Phone Elsewhere, Pcp Primary Care Provider Unavailabl e Encounter Details Date Type Department Care Team (Latest Contact Info) Description 08/13/2023 3:42 PM CDT - 08/26/2023 4:11 PM CDT Hospital Encounter [facility], [facility], Sixth Floor [address] [place] [address] Darnell Garcia M.D. [address] [place] [id number] Boubacar Brock M.D. [address] [place] [phone] Decline Functional Status [R53.81] (Primary Dx); Hematuria [...] AM CDT DISCHARGE SUMMARY BRIEF OVERVIEW Hospital: [facility] Discharge Provider: Boubacar Brock M.D. Primary Team: [facility] [...] M.D.Wen, Lexiaochuan, M.D.Premo, Hayley, M.D.Botkin, Hannah, M.D. [facility] ROMB OR DISCHARGE DISPOSITION Home or Self Care [1] ACTIVE ISSUES REQUIRING FOLLOW UP OUTPATIENT FOLLOW UP Scheduled Appointments 08/26/2023 1:00 PM [facility] Radiology For appointment details refer [...] he felt completely obstructed and presented to [facility]. [place] [facility] Attempted Tabares insertion but bladder irrigation was unsuccessful on multiple attempts. Hung 1U pRBC's. Given some volume and transferred to [facility] ICU ICU Course Urology consulted and were [...] CONSULT TO NUTRITION SUPPORT IP CONSULT TO MASTER NAVAL PARACHUTIST WOUND CARE CONDITION AT DISCHARGE stable Discharge [...] he felt completely obstructed and presented to [facility]. [place] Course Attempted Tabares insertion but bladder irrigation was unsuccessful on multiple attempts. Hung 1U pRBC's. Given some volume and transferred to [facility] ICU ICU Course Urology consulted and were [...] Care Everywhere. * Bacitracin (On the skin) (Romanian) * Cefdinir (By mouth) (Romanian) * Trospium (By mouth) (Romanian) documented in this encounter Medications at Time [...] Progress Notes * Emeterio Buchanan P.T., D.P.T., [facility] - 08/26/2023 4:27 PM CDT 08/26/23 6010 Reason Therapy Missed Reason Therapy Missed Receiving other care Attempted to see patient twice today. On 1st attempt patient was receiving blood transfusion and RNwas working on completing cares with him. On 2nd attempt patient was with another provider. * Chary Diamond M.A., O.T., [facility] - 08/26/2023 10:21 AM CDT Occupational Therapy [facility] Inpatient Treatment SUBJECTIVE Patient's Name: Kalen Vega Referring/Attending Provider: Boubacar Brock M.D. Reason for Referral: Occupational Therapy Evaluation and Treatment History of Present Illness: Kalen Vega is a 83 y.o. male who was admitted to [facility] in [place] on 08/13/2023 for Hematuria [R31.9]. Precautions Other Precautions: Abdominal, fall precautions, monitor tachycardia and hypertension Pain Assessment: Pain not reported during session. Subjective Comments: Agreeable to therapy session. Team Communication: The patient's status was discussed and coordination of care occurred with RN, Family/Caregiver, nurse tech Family/Caregiver Present: son and [id number] OBJECTIVE Vital Signs: Vitals not formally assessed during session. No concerns during chart review and the patient had nosigns or symptoms consistent with vital changes during therapy session. Outcome Measures: [facility] Inpatient Short Form: Putting on and [...] at or below 17 Clinicians answer the [facility] Inpatient Short Form based on observed [...] through pant leg first. - Adaptive Equipment: Shrimp Pond Laborer TOILETING - Assist Level: Maximal Assist [...] (Edge of bed) - Assist Level: Modified [place] - Equipment: bed rail - Therapist Delivery: assessed, instructed, assisted - Adaptive Equipment: leg assistant trialed ; however, patient able to move [...] extremity (stiff knee) first. Recommended adaptive equipment: Shrimp Pond Laborer. Toileting - Patient instructed on accurate [...] maximal exertion Handouts provided: Bathroom Safety Equipment [id number], Techniques to Help You Save Energy [id number] Patient was left in bedside chair with [...] Diamond M.A., O.T., BCP * Damaris Mena, RJonahN. - 08/25/2023 11:37 AM CDT SUBJECTIVE Discharge planning - Home health care OBJECTIVE Patient is admitted in [address] -[address] ASSESSMENT / PLAN SUPERVISOR WEAVINGmanager machine met with patient and son Kar to inform them of home health care acceptance for PT/OT. Patient's son Kar and [id number] will provide transportation at the time of discharge. PLAN Patient to discharge home with home health care. Home Medical Care - Admitted Since 08/13/2023 Service Provider Selected Services Address Phone Fax Patient Preferred [facility] [address] [facility] [phone] -- Button Riveter: Ghazal NURSING: - Complete documentation in the Discharge Navigator including Nursing Report Info and Facility/NextLevel of Care Info - Call report and arrange for the patient's first visit - Send After Visit Summary and required packet of dismissal information with patient, including advance directive. PRIMARY SERVICE: - Please provide a non-[place] home health order for: physical therapy and [...] be provided by family--patient's son Kar and [id number]. 3. dairy processing supervisor recommended reaching out to family, friends, and neighbors for assistance. 4. dairy processing supervisor provided information regarding the dismissal process. Damaris [...] Reviewed with patient #1 Hematuria Please page [facility] ([phone]) or [facility] ([phone]) Nutrition Support Service pager with questions. * Emeterio Buchanan P.T., D.P.T., [facility] - 08/25/2023 9:35 AM CDT Physical Therapy Inpatient Treatment SUBJECTIVE Patient's Name: Kalen Vega Referring/Attending Provider: Boubacar Brock M.D. Reason for Referral: Physical Therapy Evaluate and Treat History of Present Illness: Kalen Vega is a 83 y.o. male who was admitted to [facility] in [place] on 08/13/2023 for Hematuria [R31.9] Precautions Other [...] at or below 17 Clinicians answer the -[facility] Inpatient Short Form based on observed patient activity and/or clinical judgement (ie. patient can be scored without physically performing each activity) Therapeutic Interventions: SIT TO STAND x3: Assistance Level: Supervision static safe house fit with adult there which they usually [employer] with a difference educated fully know who [...] 08/25/2023 9:18 AM CDT Occupational Therapy [facility] Inpatient Treatment SUBJECTIVE Patient's Name: Kalen Vega Referring/Attending Provider: Boubacar Brock M.D. Reason for Referral: Occupational Therapy Evaluation and Treatment History of Present Illness: Kalen Vega is a 83 y.o. male who was admitted to [facility] in [place] on 08/13/2023 for Hematuria [R31.9]. Precautions Other Precautions: Abdominal, fall precautions, monitor tachycardia and hypertension Pain Assessment: Pain not reported during session. Subjective Comments: Agreeable to therapy session. Team Communication: The patient's status was discussed and coordination of care occurred with RN, PT OBJECTIVE Vital Signs: Vitals monitored throughout session; within normal ranges. Outcome Measures: [facility] Inpatient Short Form: Putting on and [...] at or below 17 Clinicians answer the [facility] Inpatient Short Form based on observed [...] including figure four technique. Recommended adaptive equipment: Shrimp Pond Laborer and Sock Aid. Toileting - Patient [...] and modification tools as needed including leg assistant and/or bed adjustments. Bathroom DME: - Educated [...] in place draining clear yellow urine I/O ([id number]): Fifty-five cc serosanguineous from the drain 1 [...] locallyfor I. 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 Venegas, chief urology resident shift production supervisor. Pager during business hours: [phone] Pager after hours: [phone] * Emeterio Buchanan P.T., D.P.T., [facility] - 08/24/2023 10:46 AM CDT Physical Therapy Inpatient Treatment SUBJECTIVE Patient's Name: Kalen Vega Referring/Attending Provider: Boubacar Brock M.D. Reason for Referral: Physical Therapy Evaluate and Treat History of Present Illness: Kalen Vega is a 83 y.o. male who was admitted to [facility] in [place] on 08/13/2023 for Hematuria [R31.9] Precautions Other [...] %, and O2flow: Room air Outcome Measures: AM-[facility] Inpatient Short Form: AM-PAC Basic Mobility [...] at or below 17 Clinicians answer the [facility] Inpatient Short Form based on observed [...] baseline. PT Goal #2: Patient will perform guf-xi-nxtvr transfer with modified independence and least restrictive [...] Total Kcal/day: 1370 based on 84 % Garcia-Huron Non-standard additives: K 80 mEq Phos 30 [...] magnesium, phosphorus tomorrow. #1 Hematuria Please page [facility] ([phone]) or [facility] ([phone]) Nutrition Support Service pager with questions. * [...] catheter in place draining light smith I/O ([id number]): Forty-two cc serosanguineous from the drain 2.2 [...] locallyfor CBI. 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 Venegas, chief urology resident shift production supervisor. Pager during business hours: [phone] Pager after hours: [phone] * Deanne Mike L.G.S.W., M.S.W. - 08/23/2023 11:25 AM CDT SUBJECTIVE Social Work spoke with [facility]. They cannot provide mcc at this time. [...] anticipated discharge date of 08/24/23-08/26/23. Referrals sent: [facility] (out of service area) [facility] ASSESSMENT / PLAN ASSESSMENT Patient has robust family support including a son living with him. PLAN Patient desires home health care through [facility]. Social Work will continue to follow to provide support. Social Work will continue to assist with discharge needs. Shorty Sun, M.S.W. 08/23/23 * Jazmine Benítez R.N., C.W.C.N. - 08/23/2023 11:10 AM CDT [facility] Wound RN consulted [...] stent and hematuria who is transferred from [facility] ED with 3 days of hematuria and [...] None Unable to Measure Y *Wound Bed Closed;[place];Red Tissue Exposed None Odor None *Exudate Amount [...] 30 minutes > 30 minutes Ongoing management Nursing;Wound/military lawyer Partial head to toe skin assessment completed [...] AM CDT * Emeterio Buchanan, P.T., D.P.T., [facility] - 08/23/2023 11:02 AM CDT Physical Therapy Inpatient Treatment SUBJECTIVE Patient's Name: Kalen Vega Referring/Attending Provider: Boubacar Brock M.D. Reason for Referral: Physical Therapy Evaluate and Treat History of Present Illness: Kalen Vega is a 83 y.o. male who was admitted to [facility] in [place] on 08/13/2023 for Hematuria [R31.9] Precautions Other [...] and O2 flow: Room air Outcome Measures: [facility] Inpatient Short Form: [facility] Basic Mobility (V.2) How much help [...] 3-5 steps with a railing?: A Lot [facility] Basic Mobility (V.2) Raw Score: 17 [facility] Basic Mobility (V.2) Standardized Score: 39.67 Interpretation: Based on scoring guidelines using the raw score value: Those going to home had an average score at or above 18 Those going to facility had an average score at or below 17 Clinicians answer the [facility] Inpatient Short Form based on observed [...] baseline. PT Goal #2: Patient will perform fib-fs-sytfg transfer with modified independence and least restrictive [...] Buchanan P.T., D.P.T., GCS * Demarco Salazar, Pharm.DJonah, R.Ph., [facility] - 08/23/2023 10:19 AM CDT Pharmacist Progress [...] Total Kcal/day: 1370 based on 84 % Garcia-[place]uron Non-standard additives: MAX chloride Thiamine 100 mg [...] magnesium, phosphorus tomorrow. #1 Hematuria Please page [facility] ([phone]) or [facility] ([phone]) Nutrition Support Service pager with questions. * Ivy Hernandez O.T. - 08/23/2023 8:30 AM CDT Occupational Therapy [facility] Inpatient Treatment SUBJECTIVE Patient's Name: Kalen Vega Referring/Attending Provider: Boubacar Brock M.D. Reason for Referral: Occupational Therapy Evaluation and Treatment History of Present Illness: Kalen Vega is a 83 y.o. male who was admitted to [facility] in [place] on 08/13/2023 for Hematuria [R31.9]. Precautions Other Precautions: Abdominal, fall precautions, monitor tachycardia and hypertension Pain Assessment: Pain not reported during session. Subjective Comments: Agreeable to therapy session. Team Communication: The patient's status was discussed and coordination of care occurred with RN, PT OBJECTIVE Vital Signs: Vitals monitored throughout session; within normal ranges. Outcome Measures: [facility] Inpatient Short Form: Putting on and [...] at or below 17 Clinicians answer the [facility] Inpatient Short Form based on observed [...] catheter in place draining clear yellow I/O ([id number]): 73 cc serosanguineous from the drain Seven [...] locallyfor I. 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 [facility] Summary: Diet: NPO, TPN Activity: [...] Dr. Venegas, chief urology resident shift production supervisor. Pager during business hours: [phone] Pager after hours: [phone] * Chary Diamond M.A., O.T., BCP - [...] OBJECTIVE Patient is anticipated to remain at [place] for 3-5 days. Referrals sent: [facility] ASSESSMENT / PLAN ASSESSMENT Patient has robust family support including a son living with him. PLAN Patient desires home health care through [facility]. Social Work will continue to follow to provide support. Social Work will continue to assist with discharge needs. Shorty Sun, M.S.W. 08/22/23 * Emeterio Buchanan P.TJonah, D.P.T., [facility] - 08/22/2023 2:27 PM CDT Physical Therapy Inpatient Treatment SUBJECTIVE Patient's Name: Kalen Vega Referring/Attending Provider: Boubacar Brock M.D. Reason for Referral: Physical Therapy Evaluate and Treat History of Present Illness: Kalen Vega is a 83 y.o. male who was admitted to [facility] in [place] on 08/13/2023 for Hematuria [R31.9] Precautions Other [...] 3-5 steps with a railing?: A Lot [facility] Basic Mobility (V.2) Raw Score: 17 [facility] Basic Mobility (V.2) Standardized Score: 39.67 Interpretation: Based on scoring guidelines using the raw score value: Those going to home had an average score at or above 18 Those going to facility had an average score at or below 17 Clinicians answer the [facility] Inpatient Short Form based on observed [...] baseline. PT Goal #2: Patient will perform yww-yd-dqnho transfer with modified independence and least restrictive [...] Total Kcal/day: 1370 based on 84 % Garcia-[place] Non-standard additives: MAX chloride Thiamine 100 mg [...] place draining light smith colored urine I/O ([id number]): CBI on slow drip 75 cc serosanguineous [...] locallyfor CBI. 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 Venegas, chief urology resident shift production supervisor. Pager during business hours: [phone] Pager after hours: [phone] * Qamar Jim, Pharm.DJonah, R.Ph. - 08/21/2023 [...] in [employer]. Qamar Jim PharmPerla., R.Ph. * Lizette Harvey M.D. - 08/21/2023 [...] place draining clear smith colored urine I/O ([id number]): 1800 cc urine output 75 cc serosanguineous [...] locallyfor CBI. 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 Venegas, chief urology resident shift production supervisor. Pager during business hours: [phone] Pager after hours: [phone] * Lizette Harvey M.D. - 08/20/2023 8:08 [...] draining clear thin merlot colored urine I/O ([id number]): 240 cc p.o. intake 760 cc urine [...] locallyfor CBI. He was subsequently transferred to [facility] 08/12 for difficulty irrigating his catheter [...] mg BID eliquis initiated 08/15 per [facility] med curbside recs --transition from [...] have him follow up with his local salon supervisor Comorbidities: --history of DVT status post [...] questions or concerns. Pager during business hours: [phone] Pager after hours: [phone] * Qamar Jim, Pharm.D., R.Ph. - 08/20/2023 [...] Jim PharmPerla., R.Ph. * Lisa Seaman, O.T., [facility] - 08/19/2023 2:26 PM CDT Occupational Therapy [facility] Inpatient Treatment SUBJECTIVE Patient's Name: Kalen Vega Referring/Attending Provider: Boubacar Brock M.D. Reason for Referral: Occupational Therapy Evaluation and Treatment History of Present Illness: Kalen Vega is a 83 y.o. male who was admitted to [facility] in [place] on 08/13/2023 for Hematuria [R31.9]. Precautions Other Precautions: Abdominal, fall precautions, monitor tachycardia and hypertension Pain Assessment: Pain not reported during session. Subjective Comments: Patient greeted in chair and agreeable to therapy session. Team Communication: The patient's status was discussed and coordination of care occurred with RN OBJECTIVE Vital Signs: Vitals monitored throughout session; within normal ranges. Outcome Measures: [facility] Inpatient Short Form: Putting on and [...] at or below 17 Clinicians answer the [facility] Inpatient Short Form based on observed [...] about patient's nutritional care please contact pager [phone] on weekdays or [phone] on weekends/holidays. NUTRITION ASSESSMENT: Mr. Vega is [...] care everywhere) ESTIMATED NEEDS: Total Calorie Needs: 5269-3483 calories/day Method to Estimate Energy Needs: kcal/kg [...] 83 y.o. male who was admitted to [facility] in [place] on 08/13/2023 for Hematuria [R31.9] Precautions Other [...] mmHg O2: 96% Room air Outcome Measures: [facility] Inpatient Short Form: -[facility] Basic Mobility (V.2) How much help [...] 3-5 steps with a railing?: A Little -[facility] Basic Mobility (V.2) Raw Score: 18 -[facility] Basic Mobility (V.2) Standardized Score: 41.05 Interpretation: Based on scoring guidelines using the raw score value: Those going to home had an average score at or above 18 Those going to facility had an average score at or below 17 Clinicians answer the -[facility] Inpatient Short Form based on observed [...] Ongoing PT Goal #2: Patient will perform stl-wa-panon transfer with modified independence and least restrictive [...] Scott Pina P.T., D.P.T. * Chance Cassidy Pharm.DJonah, R.Ph. - 08/19/2023 9:28 AM CDT Images [...] 45 cc serosanguineous drainage. OBJECTIVE Vital signs: AVOREN continues to have intermittent tachycardia Physical Exam: General: No acute distress Neuro: Alert and oriented, no gross deficits. Cardiovascular: Regular rate. Pulmonary: Normal respiratory effort. Abdomen: Non-tender, non-distended. Wound VAC in place holding suction : Tabares catheter in place draining clear pink urine I/O ([id number]): 370 p.o. intake 1 L urine output [...] locallyfor CBI. He was subsequently transferred to [facility] 08/12 for difficulty irrigating his catheter [...] mg BID eliquis initiated 08/15 per [facility] med curbside recs --transition from [...] have him follow up with his local salon supervisor Comorbidities: --history of DVT status post [...] questions or concerns. Pager during business hours: [phone] Pager after hours: [phone] * Lisa Seaman, OMarlon., [facility] - 08/18/2023 11:15 AM CDT Occupational Therapy [facility] Inpatient Treatment SUBJECTIVE Patient's Name: Kalen Vega Referring/Attending Provider: Boubacar Brock M.D. Reason for Referral: Occupational Therapy Evaluation and Treatment History of Present Illness: Kalen Vega is a 83 y.o. male who was admitted to [facility] in [place] on 08/13/2023 for Hematuria [R31.9]. Precautions Other [...] at or below 17 Clinicians answer the AM-[facility] Inpatient Short Form based on observed [...] doffing over it last. Recommended adaptive equipment: Shrimp Pond Laborer and Sock Aid. Patient was left in bedside chair, with nursing/WIND PROJECTS SUPERVISOR at end of session with call [...] 83 y.o. male who was admitted to [facility] in [place] on 08/13/2023 for Hematuria [R31.9] Precautions Other [...] 3-5 steps with a railing?: A Little [facility] Basic Mobility (V.2) Raw Score: 18 [facility] Basic Mobility (V.2) Standardized Score: 41.05 Interpretation: Based on scoring guidelines using the raw score value: Those going to home had an average score at or above 18 Those going to facility had an average score at or below 17 Clinicians answer the [facility] Inpatient Short Form based on observed [...] following coordination of care occurred with the precipitate washer/Caregiver Present: No Patient was left in bedside [...] Progressing PT Goal #2: Patient will perform qoy-ul-ornei transfer with modified independence and least restrictive [...] 45 cc serosanguineous drainage. OBJECTIVE Vital signs: [facility] Physical Exam: General: No acute distress Neuro: Alert and oriented, no gross deficits. Cardiovascular: Regular rate. Pulmonary: Normal respiratory effort. Abdomen: Non-tender, non-distended. Wound VAC in place holding suction : Tabares catheter in place draining clear pink urine I/O ([id number]): 1.2 L p.o. intake 1 L urine [...] locallyfor CBI. He was subsequently transferred to [facility] 08/12 for difficulty irrigating his catheter [...] questions or concerns. Pager during business hours: [phone] Pager after hours: [phone] * Tayler Greenwood M.D., M.Ed. - 08/17/2023 [...] the patient follow up with his primary salon supervisor at discharge we will which we [...] home enzalutamide today (own supply). Marie Cassidy PharmJonahD., R.Ph. INPATIENT MED LIST: acetaminophen, 650 [...] Lactated Ringer's * Lisa Seaman, O.T., [facility] - 08/17/2023 10:47 AM CDT Occupational Therapy [facility] Inpatient Treatment SUBJECTIVE Patient's Name: Kalen Vega Referring/Attending Provider: Boubacar Brock M.D. Reason for Referral: Occupational Therapy Evaluation and Treatment History of Present Illness: Kalen Vega is a 83 y.o. male who was admitted to [facility] in [place] on 08/13/2023 for Hematuria [R31.9]. Precautions Other [...] at or below 17 Clinicians answer the [facility] Inpatient Short Form based on observed [...] in place draining clear pink urine I/O ([id number]): NG tube 200 cc Two hundred sixty-five [...] locallyfor I. He was subsequently transferred to [facility] 08/12 for difficulty irrigating his catheter [...] held since 08/11) -discussed with vascular Medicine joannesylvia 08/15 regarding ongoing anticoagulation/antiplatelet. Theyfelt he no [...] questions or concerns. Pager during business hours: [phone] Pager after hours: [phone] * uAdi De Luna P.T., D.P.T. - 08/16/2023 3:05 [...] in place draining clear pink urine I/O ([id number]): NG tube 200 cc Two hundred sixty-five [...] locallyfor CBI. He was subsequently transferred to [facility] 08/12 for difficulty irrigating his catheter [...] questions or concerns. Pager during business hours: [phone] Pager after hours: [phone] * Paula Hernandez M.D. - 08/15/2023 9:09 AM CDT PROGRESS NOTE: No events. AFVSS. Pain controlled. No flatus. No further emesis overnight. Abdomen more distended than yesterday but remained soft, tender to deep palpation only, no rebound. Twenty-four Citizen [place] Alcock three-way catheter remains off CBI, draining [...] for CBI. He was subsequently transferred to [facility] 08/12 for difficulty irrigating his catheter [...] above was discussed with Dr. Brock, urology senior clinical consultant on-call who is in agreement with [...] Family to bring his home enzalutamide from [place] Irvin Franco Pharm.D., R.Ph. * Jakob De Paz M.D. - 08/14/2023 11:34 AM CDT PROGRESS NOTE: No events. AFVSS. Pain controlled. No flatus. Nauseous and had 2 episodes of emesis. Abdomen more distended than yesterday but remained soft, tender to deep palpation only, no rebound. 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 He was subsequently transferred to [facility] 08/12 for difficulty irrigating his catheter [...] above was discussed with Dr. Brock, urology senior clinical consultant on-call who is in agreement with [...] Patient discussed with Dr. Sylvester. Page CCM3 [id number] Carlos Alberto Henson M.D. PGY-1 CCM 3 [...] asked we place a 24 [place] 3-way urinary catheter pending evaluation. We will [...] him to present to local hospital in [place]. OSH Course: His hemoglobin was in the [...] Insecurity: No Food Insecurity (02/16/2022) [facility] [place] [facility] Food Insecurity Worried About Running Out of Food in the Last Year: 1 Transportation Needs: No Transportation Needs (02/16/2022) Received from [place] [facility] [place] [facility] Transportation Needs Lack of Transportation (Medical): 1 Housing Stability: Low Risk (02/16/2022) Received from [place] [facility] [place] [facility] Housing Stability Unable to Pay for Housing [...] Dr. Sylvester and Dr. Rodriguez. Page CCM3 [id number] Carlos Alberto Henson M.D. PGY-1 CCM 3 [...] As expected PRIMARY PROCEDURALIST FAY Cerna MD [phone] ASSISTANTS none COMPLICATIONS None. DRAINS None. IMPLANTS [...] peripheral vein targets. Ultrasound used for assessment: [employer] Fit Provider contacted (include name): Uro Surg [...] 14 -- AST U/L 25 -- Radiology: @[id number]@ Swallow Assessment: No data to display ASSESSMENT / PLAN #1 Hematuria ASSESSMENT Currently we are asked to visit with Mr. Vega for consideration of parenteral nutrition. Nutrition Needs: Height: 180 cm Admission Weight: 91.2 kg (08/13/2023) Current Weight: 90.2 kg BMI (Calculated): 27.8 kg/m?? Total Calorie Needs: 7777-9906 calories/day Method to Estimate Energy Needs: Garcia-Huron ( ) Weight Used for Equation Calculations: [...] on electrolytes Please call NSS pager at [phone] [facility] or [phone] at [facility] with any additional questions. * Gilbert Johnson M.D. - 08/20/2023 8:05 AM CDTAssociated Order(s): Nutrition support service consult ([facility]) SUBJECTIVE Nutrition support service consult ([facility]) Referring Provider: Lizette Harvey M.D. REASON FOR [...] values in this interval not displayed. Radiology: @[id number]@ Swallow Assessment: No data to display ASSESSMENT / PLAN #1 Hematuria ASSESSMENT Currently we are asked to visit with Mr. Vega for consideration of parenteral nutrition. Nutrition Needs: Height: 180 cm Admission Weight: 91.2 kg (08/13/2023) Current Weight: 90.2 kg BMI (Calculated): 27.8 kg/m?? Total Calorie Needs: 9080-4838 calories/day Method to Estimate Energy Needs: kcal/kg [...] on electrolytes Please call NSS pager at [phone] [facility] or [phone] at [facility] with any additional questions. BILLING/CODING Total visit [...] stent along with other stents and apparently salon supervisor in the past I recommended indefinite [...] 20 mL/hr, intravenous, Continuous, Frieda Garner APRN, GASOLINE SERVICE ATTENDANT, Last Rate: 20 mL/hr at 08/15/23 [...] but he can discuss this with his salon supervisor at home. We need to balance transfusion needs for continued bleedingand risk of recurrent [place] if not on Plavix-coronary stents were 6 [...] 83 y.o. male who was admitted to [facility] in [place] on 08/13/2023 for Hematuria [R31.9]. Relevant Medical History: Kalen Vega is a 83 y.o. 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 Outcome Measures: [facility] Inpatient Short Form: -[facility] Basic Mobility (V.2) How much help [...] 3-5 steps with a railing?: A Lot -[facility] Basic Mobility (V.2) Raw Score: 17 -[facility] Basic Mobility (V.2) Standardized Score: 39.67 Interpretation: Based on scoring guidelines using the raw score value: Those going to home had an average score at or above 18 Those going to facility had an average score at or below 17 Clinicians answer the [facility] Inpatient Short Form based on observed [...] following coordination of care occurred with the precipitate washer/Caregiver Present: SonFavio Patient was left in bedside [...] 83 y.o. male who was admitted to [facility] in [place] on 08/13/2023 for Hematuria with cystotomy and [...] Min assist for mobility. Required assist for [id number]-tf-[id number] for force generation and is generally standby [...] Ongoing PT Goal #2: Patient will perform jje-by-yixtd transfer with modified independence and least restrictive [...] Celestin Associated attestation - Fidencio Caban P.T., D.PJonahT. - 08/17/2023 5:45 PM CDT This therapist has reviewed all documentation and supervised today???s session. The therapist agrees with the plan developed in collaboration with the patient. * Lisa Seaman O.T., MOT - 08/16/2023 10:01 AM CDT Occupational Therapy [facility] Inpatient Evaluation/Treatment SUBJECTIVE Patient's Name: Kalen Vega Referring/Attending Provider: Boubacar Brock M.D. Reason for Referral: Occupational Therapy Evaluation and Treatment PERTINENT MEDICAL / SURGICAL HISTORY: Kalen Vega has no past medical history on file. Kalen Vega has no past surgical history on file. History of Present Illness: Kalen Vega is a 83 y.o. male who was admitted to [facility] in [place] on 08/13/2023 for Hematuria [R31.9]. Relevant Medical [...] with RN, PT Family/Caregiver Present: Son and [id number]. Home Living and Equipment: Lives with: Spouse/Significant [...] walker, Single point cane Adaptive Equipment Owned: Shrimp Pond Laborer, Long Handled Shoe Horn Other DME Owned: Regular flat bed Prior Level of Function and Mobility: Basic Activities of Daily Living: Independent Instrumental Activities of Daily Living: Required Assistance: Jessicaundmelissa son assists with laundry and cooking Functional Mobility: Independent Driving: Yes Occupational Role: Retired Leisure Interests: watch movies, plays [employer] train, meets friends for breakfast. 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 Patient expressed understanding and was [...] engaged in conversation with his family when geriatric social worker entered the room. He was [...] approximately 3:00 a.m. a 22 [place] three-way catheter was placed and CBI wasinitiated. Unfortunately he clotted off the catheter multiple times despite manual irrigations, started to develop hypotension and tachycardia and [facility] He relays the above [...] Extremities: No edema : 22 [place] three-way Tabares catheter draining a minimal amount [...] Given his non draining 22 [place] three-way catheter the Urology techs and I subsequently exchanged this for a 24 [place] three-way Alcock in the usual sterile fashion. [...] to follow [place] [phone] with questions or concerns Sixto Cain M.D. [...] edema, extravasation Extremities assessed (right/left, upper/lower arm): VINCENZO/LUE Vein score: 5 Grade 1/Excellent: Palpable & [...] peripheral vein targets. Ultrasound used for assessment: [employer] Fit Provider contacted (include name): Uro Surg [...] CDT Patient Transfer Note Patient transferred to: [facility] Room: 101 Accompanied by: JAMEL Garcia Report [...] signs? YES * Sixto Teague R.R.TJonah, L.R.T., [employer]ODGE ATTENDANT[employer] - 08/14/2023 7:00 AM CDT Patient is [...] the last 24hours. Sixto Teague R.R.T., L.R.T., LODGE ATTENDANT[employer] 08/14/23 7:00 AM CDT Electronically signed by Sixto Teague R.R.TJonah, L.R.T., LODGE ATTENDANT[employer] at 08/14/2023 7:02 AM CDT * Radha Crespo R.RJonahTJonah, L.R.T. - 08/13/2023 7:09 PM CDT Patient [...] Hematuria Electronically signed by: Radha Crespo R.R.T., Kunal 08/13/23 7:10 PM CDT documented in this encounter OR Notes * Op Note - Jakob De Paz M.D. - 08/15/2023 9:37 AM CDT Pre-op Diagnosis Rupture Bladder Spontaneous Post-op Diagnosis Rupture Bladder Spontaneous Manufacturing Maintenance Mechanic A airplane first officer actively participated and was necessary for one [...] flexed position. His existing 24 [place] three-way Tabares catheter was noted to be [...] for additional coverage. A 24 [place] three-way catheter was placed with 15 cc in the balloon. This irrigated to light clear pink. A 15 [place] YAREIL drain wasplaced into the pelvis exiting left lower quadrant. The fascia was closed with interrupted and shvqkh-zi-pcdow 0 PDS. Fat was approximated using 3-0 [...] RN, CPN, CCDS, CCS, CRC Clinical Documentation Cryptologic Technician Operator/Analyst Query created by: ELMER Barker, RN, CPN, [...] stent and hematuria who is transferred from [place] ED with 3 days of hematuria & [...] RN, CPN, CCDS, CCS, CRC Clinical Documentation Cryptologic Technician Operator/Analyst Query created by: ELMER Barker, RN, CPN, [...] he felt completely obstructed and presented to [place] ED. [place] Course Attempted Tabares insertion but bladder irrigation was unsuccessful on multiple attempts. Hung 1U pRBC's. Given some volume and transferred to [facility] ICU ICU Course Urology consulted and were [...] CDT Procedure visit Department of Urology in [place], [place] [address] [place] [phone] Burke Strauss M.D. [address] [place] [phone] Discharge Disposition: Home or Self Care 12/07/2023 10:30 AM CDT Office Visit Department of Urology in [place], [place] [address] [place] [phone] Burke Strauss M.D. [address] [place] [address] Discharge Disposition: Home or Self Care Pending [...] [facility] - [facility] [address] [place] [address], [facility] [address] [place] [address] * (ABNORMAL) CBC without Differential (08/26/2023 3:20 [...] M.D. LAB BLOOD ADD-ON Performing Organization Address City/[facility] Co de Phone Number [facility] [address] [place], [place] [phone] [place] [address] [address] [place] [address] * Magnesium (08/26/2023 3:20 AM CDT) Magnesium, S 2.1 1.7 - 2.3 mg/dL 08/26/2023 4:04 AM CDT DTL Blood (Blood, Venous) 08/26/2023 3:20 AM CDT 08/26/2023 3:50 AM CDT Boubacar Brock M.D. LAB BLOOD ADD-ON Performing Organization Address [facility] Co de Phone Number [facility] [address] [place] [address] * (ABNORMAL) Renal Function Panel (08/26/2023 3:20 [...] ADD-ON Performing Organization Address [facility]/ZIP Co de Phone Number [facility] [address] [place] [address], [facility] [address] [place] [address] * Heparin Anti-Xa Assay (08/26/2023 3:20 AM [...] BLOOD NON ADD -ON Performing Organization Address City/[facility]/ZIP Co de Phone Number [facility] [address] [place] [address], [facility] [address] [place] [address] * (ABNORMAL) CBC without Differential (08/25/2023 3:24 [...] ADD-ON [facility] [address] [place] [address], [facility] [address] [place] [address] * (ABNORMAL) Renal Function Panel (08/25/2023 3:24 [...] CDT Boubacar Brock M.D. LAB BLOOD ADD-ON [facility] [address] [place] [address], [facility] [address] [place] [address] * Magnesium (08/25/2023 3:24 AM CDT) Magnesium, S 2.2 1.7 - 2.3 mg/dL 08/25/2023 4:36 AM CDT DTL Blood (Blood, Venous) 08/25/2023 3:24 AM CDT 08/25/2023 4:19 AM CDT Boubacar Brock M.D. LAB BLOOD ADD-ON Performing Organization Address City/[facility]/ZIP Co de Phone Number [facility] [address] [place], [place] [phone] [place] [address] * Heparin Anti-Xa Assay (08/25/2023 3:24 AM [...] ADD-ON [facility] [address] [place], [place] [phone] [place] [address] * (ABNORMAL) CBC without Differential (08/24/2023 5:28 [...] M.D. LAB BLOOD ADD-ON Performing Organization Address City/[facility]/ZIP Co de Phone Number [facility] [address] [facility] [address] [place] [address] * Magnesium (08/24/2023 5:28 AM CDT) Magnesium, S 2.3 1.7 - 2.3 mg/dL 08/24/2023 6:19 AM CDT DTL Blood (Blood, Venous) 08/24/2023 5:28 AM CDT 08/24/2023 6:00 AM CDT Boubacar Brock M.D. LAB BLOOD ADD-ON Performing Organization Address City/[facility]/ZIP Co de Phone Number [facility] [address] [place], [place] [phone] [place] [address] [facility] [address] [place] [address] * (ABNORMAL) Renal Function Panel (08/24/2023 5:28 [...] CDT Boubacar Brock M.D. LAB BLOOD ADD-ON [facility] [address] [place] [address], [facility] [address] [place] [address] * Heparin Anti-Xa Assay (08/24/2023 5:28 AM [...] LAB BLOOD NON ADD-ON Performing Organization Address City/[facility]/ZIP Co de Phone Number [facility] [address] [place] [address] * (ABNORMAL) Potassium (08/23/2023 9:58 PM CDT) Potassium, S 3.5(L) 3.6 - 5.2 mmol/L 08/23/2023 10:45 PM CDT DT Blood (Blood, Venous) 08/23/2023 9:58 PM CDT 08/23/2023 10:30 PM CDT Boubacar Brock M.D. LAB BLOOD ADD-ON [facility] [address] [place] [address] * (ABNORMAL) Phosphorus Inorganic (08/23/2023 9:58 PM CDT) Phosphorus (Inorganic), S 2.1(L) 2.5 - 4.5 mg/dL 08/23/2023 10:45 PM CDT [facility] Blood (Blood, Venous) 08/23/2023 9:58 PM CDT 08/23/2023 10:30 PM CDT Paula Hernandez M.D. LAB BLOOD ADD-ON Performing Organization Address City/[facility]/ZIP Co de Phone Number [facility] [address] [place] [address], [facility] [address] [address] * Heparin Anti-Xa Assay (08/23/2023 11:37 AM [...] LAB BLOOD NON ADD-ON Performing Organization Address City/[facility]/ZIP Co de Phone Number [facility] [address] [place] [address], [facility] [address] [place] [address] * (ABNORMAL) CBC without Differential (08/23/2023 3:42 [...] M.D. LAB BLOOD ADD-ON Performing Organization Address City/[facility] Co de Phone Number [facility] [address] [facility] [address] [place] [address] * Triglycerides (08/23/2023 3:42 AM CDT) Triglycerides [...] M.D. LAB BLOOD ADD-ON Performing Organization Address City/[facility]/ZIP Co de Phone Number [facility] [address] [facility] [address] [place] [address] * Magnesium (08/23/2023 3:42 AM CDT) Magnesium, S 2.2 1.7 - 2.3 mg/dL 08/23/2023 4:50 AM CDT DTL Blood (Blood, Venous) 08/23/2023 3:42 AM CDT 08/23/2023 4:19 AM CDT Boubacar Brock M.D. LAB BLOOD ADD-ON [facility] [address] [place] [address], [facility] [address] [place] [address] * (ABNORMAL) Renal Function Panel (08/23/2023 3:42 [...] M.D. LAB BLOOD ADD-ON Performing Organization Address City/[facility]/ZIP Co de Phone Number [facility] [address] [place], [place] [phone] [place] [address] [address] [place] [address] * Heparin Anti-Xa Assay (08/23/2023 3:41 AM CDT) Pathologist [facility] Heparin Anti-Xa, P 0.51 IU/mL 2023 4:26 [...] LAB BLOOD NON ADD-ON Performing Organization Address [facility] Co de Phone Number [facility] [address] [place] [address], [facility] [address] [place] [address] * Glucose, POCT (08/22/2023 11:38 PM CDT) Pathologist [facility] Glucose, POCT, B 117 70 - 140 mg/dL 08/23/2023 1:06 AM CDT PCLX Site Capillary 08/23/2023 1:06 AM CDT PCLX Last Intake NPO 08/23/2023 1:06 AM CDT PCLX Blood 08/22/2023 11:3 8 PM CDT 08/23/2023 1:06 AM CDT Unknown Provider LAB POCT ORDERABLES- MANUAL POC [facility] [address] [place] [address], [facility] PCLX [facility] [address] [place] [address] * Heparin Anti-Xa Assay (08/22/2023 10:14 PM [...] LAB BLOOD NON ADD-ON Performing Organization Address City/[facility]/ZIP Co de Phone Number [facility] [address] [place] [address], [facility] DTL [facility] [address] [place] [address] * CT Abdomen Pelvis without IV Contrast [...] Boubacar Brock M.D. LAB BLOOD NON ADD-ON [facility] [address] [place] [address], [facility] DTL [facility] [address] [place] [address] * Creatinine, Body Fluid (08/22/2023 3:30 PM [...] transport rates. All other fluids refer to www.[employer] for further interpretive information. This test has been modified from the therapeutic massage technician's instructions. Its performance characteristics were determined by [facility] in a manner consistent with CLIA requirements. This test has not been cleared or approved by the U.S. Food and Drug Administration. Fluid Type, Creatinine Fluid, Abdomen 08/22/2023 3:52 PM CDT DTL Fluid (Abdomen) 08/22/2023 3 :30 PM CDT 08/22/2023 6:36 PM CDT Corin Ring M.D. LAB BODY FLUIDS AND STOOLS ORDERABLES Performing Organization Address City/State/[facility] Co de Phone Number [facility] [address] [place] [address], [facility] [address] [place] [address] * Transfuse Red Blood Cells : (08/22/2023 [...] right IJ vein single-lumen 4 [place] tunneled PowerPICC ready for immediate use. NR [...] the IVC and a 4 [place] dilator advanced over the wire and attached to a one-way stopcock. A suitable exit site in the right anterior chest was anesthetized and a small incision made. A 4 [place] single-lumen PowerPICC was then tunneled from the [...] residents, and fellows were discussed. Procedure Note oJni Cerna M.D. - 08/22/2023 EXAM: IR PICC [...] the IVC and a 4 [place] dilator advanced over the wire andattached to a one-way stopcock. A suitable exit site in the right anteriorchest was anesthetized and a small incision made. A 4 [place] single-lumen PowerPICC was then tunneled fromthe skin [...] right IJ vein single-lumen 4 [place] tunneled PowerPICCready for immediate use. NR Kimi Vieira M.D., M.S. IMG IR P LULU * (ABNORMAL) CBC without Differential (08/22/2023 3:27 AM CDT) Pathologist [facility] Hemoglobin 7.8(L) 13.2 - 16.6 g/dL 08/22/2023 [...] ADD-ON [facility] [address] [place] [address], [facility] [address] [place] [address] * Type and Screen (with Reflex Antibody ID) (08/22/2023 2:55 AM CDT) Pathologist [facility] ABORh O Pos Not applicable 08/22/2023 3:25 AM CDT STRM Antibody Screen Negative Negative 08/22/2023 3:38 AM CDT STRM Type & Screen Expiration 08/25/2023 23:59 08/22/2023 3:25 AM CDT STRM Testing Location Marcio DEFAULT 08/22/2023 3:07 AM CDT STRM Blood (Blood, Venous) 08/22/2023 2:55 AM CDT 08/22/2023 3:07 AM CDT Latisha Whitehead M.D. LAB BLOOD BANK T EST ORDERABLES [facility] [address] [place] [address], [facility] [address] [place] [address] * (ABNORMAL) Comprehensive Metabolic Panel (08/22/2023 2:40 AM CDT) [facility] Potassium, S 3.2(L) 3.6 - [...] ADD-ON Performing Organization Address [facility]/ZIP Co de Phone Number [facility] [address] [place], [place] [address] [place] [address] * Heparin Anti-Xa Assay (08/22/2023 2:40 AM [...] BLOOD NON AD D-ON Performing Organization Address [facility]/ZIP Co de Phone Number [facility] [address] [place], [place] [address] 200 [place] [address] * (ABNORMAL) APTT (Activated Partial Thromboplastin Time) (08/22/2023 2:40 AM CDT) [facility] Activated Partial Thrombopl Time, P 64(H) 25 - 37 sec 08/22/2023 3:12 AM CDT [facility] Blood (Blood, Venous) 08/22/2023 2:40 AM CDT 08/22/2023 3:01 AM CDT Latisha Whitehead M.D. LAB BLOOD ADD-ON Performing Organization Address City/[facility]/ZIP Co de Phone Number [facility] [address] [place], [place] [address] [place] [address] 200 [place] [address] * Triglycerides (08/21/2023 7:32 AM CDT) [facility] Triglycerides 98 mg/dL 08/21/2023 9:03 AM CDT DT Comment: ----REFERENCE VALUE---- Normal: <150 mg/dL Borderline High: 150-199 mg/dL High: 200-499 mg/dL Very High: > or =500 mg/dL Fasting (8 HR or more) Unknown 08/21/2023 8:38 AM CDT DT Blood (Blood, Venous) 08/21/2023 7:32 AM CDT 08/21/2023 8:38 AM CDT Lizette Harvey M.D. LAB BLOOD ADD-O N [facility] [address] [place], [place] [address] [place] [address] 200 [place] [address] * Phosphorus Inorganic (08/21/2023 7:32 AM CDT) [facility] Phosphorus (Inorganic), S 2.6 2.5 - 4.5 mg/dL 08/21/2023 9:03 AM CDT DTL Blood (Blood, Venous) 08/21/2023 7:32 AM CDT 08/21/2023 8:38 AM CDT Lizette Harvey M.D. LAB BLOOD ADD-O N Performing Organization Address City/[facility]/ZIP Co de Phone Number [facility] [address] 200 [place] [address] * Magnesium (08/21/2023 7:32 AM CDT) Magnesium, S 2.3 1.7 - 2.3 mg/dL 08/21/2023 9:03 AM CDT DTL Blood (Blood, Venous) 08/21/2023 7:32 AM CDT 08/21/2023 8:38 AM CDT Lizette Harvey M.D. LAB BLOOD ADD-O N Performing Organization Address [facility] Co de Phone Number [facility] [address] 200 [place] [address] * (ABNORMAL) Basic Metabolic Panel (08/21/2023 7:32 [...] Lizette Harvey M.D. LAB BLOOD ADD-O N [address] [place] [address] * (ABNORMAL) CBC without Differential (08/21/2023 7:32 [...] N [facility] 200 [place] [address] * Heparin Anti-Xa Assay (08/21/2023 7:32 AM [...] ADD-ON [facility] [address] 200 [place] [address] * (ABNORMAL) APTT (Activated Partial Thromboplastin Time) (08/21/2023 7:32 AM CDT) Activated Partial Thrombopl Time, P 49(H) 25 - 37 sec 08/21/2023 8:31 AM CDT DT Blood (Blood, Venous) 08/21/2023 7:32 AM CDT 08/21/2023 8:06 AM CDT Boubacar Brock M.D. LAB BLOOD ADD-ON Performing Organization Address City/[facility] Co de Phone Number [facility] [address] [place] [address], [place] DTL [facility] [address] [place] [address] * Place peripherally inserted central catheter (PICC) [...] M.D. PROCEDURE/MINOR SURGICAL ORDERABLES Performing Organization Address City/[facility] Co de Phone Number MMODAL NA [...] CDT Paula Hernandez M.D. LAB BLOOD ADD-ON [facility] [address] [address], [facility] [place] [address] * (ABNORMAL) CBC without Differential (08/20/2023 3:19 [...] M.D. LAB BLOOD ADD-ON Performing Organization Address City/[facility]/ZIP Co de Phone Number [facility] [address] [place] [address] * (ABNORMAL) APTT (Activated Partial Thromboplastin Time) (08/20/2023 3:19 AM CDT) Activated Partial Thrombopl Time, P 52(H) 25 - 37 sec 08/20/2023 4:33 AM CDT DTL Blood (Blood, Venous) 08/20/2023 3:19 AM CDT 08/20/2023 4:10 AM CDT Boubacar Brock M.D. LAB BLOOD ADD-ON [facility] [address] [facility] 200 [place] [address] * (ABNORMAL) APTT (Activated Partial Thromboplastin Time) (08/19/2023 10:57 AM CDT) Activated Partial Thrombopl Time, P 54(H) 25 - 37 sec 08/19/2023 11:44 AM CDT DTL Blood (Blood, Venous) 08/19/2023 10:57 AM CDT 08/19/2023 11:26 AM CDT Boubacar Brock M.D. LAB BLOOD ADD-ON Performing Organization Address City/[facility]/ZIP Co de Phone Number [facility] [address] [place], [place] [address] [place] [address] [address] [place] [address] * (ABNORMAL) APTT (Activated Partial Thromboplastin Time) (08/19/2023 4:51 AM CDT) Activated Partial Thrombopl Time, P 59(H) 25 - 37 sec 08/19/2023 5:53 AM CDT DTL Blood (Blood, Venous) 08/19/2023 4:51 AM CDT 08/19/2023 5:36 AM CDT Boubacar Brock M.D. LAB BLOOD ADD-ON Performing Organization Address City/[facility] Co de Phone Number [facility] [address] [place], [place] [address] [place] [address] 200 [place] [address] * (ABNORMAL) APTT (Activated Partial Thromboplastin Time) (08/18/2023 10:03 PM CDT) Activated Partial Thrombopl Time, P 63(H) 25 - 37 sec 08/18/2023 10:41 PM CDT DTL Blood (Blood, Venous) 08/18/2023 10:03 PM CDT 08/18/2023 10:19 PM CDT Boubacar Brock M.D. LAB BLOOD ADD-ON [facility] [address] [place], [place] [address] [place] [address] 200 [place] [address] * (ABNORMAL) APTT (Activated Partial Thromboplastin Time) (08/18/2023 2:50 PM CDT) [facility] Activated Partial Thrombopl Time, P 64(H) 25 - 37 sec 08/18/2023 3:25 PM CDT DT Blood (Blood, Venous) 08/18/2023 2:50 PM CDT 08/18/2023 3:07 PM CDT Boubacar Brock M.D. LAB BLOOD ADD-ON [facility] [address] [place] [address] * (ABNORMAL) APTT (Activated Partial Thromboplastin Time) (08/18/2023 6:42 AM CDT) [facility] Activated Partial Thrombopl Time, P 61(H) 25 - 37 sec 08/18/2023 7:28 AM CDT DT Blood (Blood, Venous) 08/18/2023 6:42 AM CDT 08/18/2023 7:04 AM CDT Boubacar Brock M.D. LAB BLOOD ADD-ON Performing Organization Address City/[facility]/ZIP Co de Phone Number [facility] [address] [place], [place] [address] [place] [address] [address] [place] [address] * (ABNORMAL) APTT (Activated Partial Thromboplastin Time) (08/17/2023 11:04 PM CDT) [facility] Activated Partial Thrombopl Time, P 40(H) 25 - 37 sec 08/17/2023 11:46 PM CDT DT Blood (Blood, Venous) 08/17/2023 11:04 PM CDT 08/17/2023 11:31 PM CDT Boubacar Brock M.D. LAB BLOOD ADD-ON [facility] [address] [place], [place] [address] [address] [place] [address] * US Lower Extremity Veins Bilateral (08/17/2023 [...] and management can be found on the [employer] site. Link [email or web address] Findings discussed with ??Tayler Greenwood, ?? ([id number]) on 08/17/2023 7:11 PM. Procedure Note Jj [...] management can be found on theAskMayoExpert site. [email or web address] Findings discussed with Tayler Greenwood MD ([id number]) on 08/17/2023 7:11 PM. IMPRESSION: 1. Aging, [...] ADD-ON Performing Organization Address [facility] Co de Phone Number [facility] [address] [place] [address], [facility] [address] [place] [address] * ECG 12 Lead (08/16/2023 9:43 PM CDT) Pathologist [facility] Ventricular Rate ECG/Min 134 BPM MUSE AZ Interval 136 ms MUSE QRSD Interval 76 ms MUSE QT Interval 298 ms MUSE QTC Interval 445 ms MUSE P [place] 29 degrees MUSE R [place] -6 degrees MUSE T Wave [place] 21 degrees MUSE 08/16/2023 9:43 PM CDT [...] Azar M.D. ECG ORDERABLES Performing Organization Address [facility] Co de Phone Number MUSE NA [...] ADD-ON [facility] [address] [place] [address], [facility] [address] [place] [address] * (ABNORMAL) Basic Metabolic Panel (08/16/2023 9:40 PM CDT) [facility] Potassium, S 3.9 3.6 - 5.2 mmol/L [...] CDT Geneva Azar M.[place] [address], [facility] [place] [address] * Transfuse Red Blood Cells : (08/16/2023 12:04 PM CDT) Corin Ring M.D. BLOOD TRANSFUSION OR DERABLES * Transfuse Red Blood Cells : , 1 Units (08/16/2023 12:04 PM CDT) Corin Ring M.D. BLOOD TRANSFUSION OR DERABLES * (ABNORMAL) Basic Metabolic Panel (08/16/2023 3:10 AM CDT) [facility] Potassium, S 4.2 3.6 - 5.2 mmol/L [...] CDT Paula Hernandez M.D. LAB BLOOD ADD-ON [address] [address], [facility] [place] [address] * (ABNORMAL) CBC without Differential (08/16/2023 3:10 [...] [facility] [address] [place] [address], [facility] DTL [facility] [address] [place] [address] * (ABNORMAL) CBC with Differential, Blood (08/15/2023 3:58 PM CDT) Pathologist [facility] Hemoglobin 9.0(L) 13.2 - 16.6 g/dL 08/15/2023 [...] [facility] [address] [place] [address], [place] DTL [facility] [address] [place] [address] DHPM [facility] [address] [place] [address] * DX Abdomen 1 View (08/15/2023 1:19 [...] 08/15/2023 12:03 PM CDT Rae Gonzalez APRN, GASOLINE SERVICE ATTENDANT, DNAP LAB BLOO D NON ADD-ON [facility] [address] [place] [address], [facility] [address] [place] [address] * Lactate, B - Intra-op (08/15/2023 11:56 AM CDT) Lactate, B 1.1 0.5 - 2.2 mmol/L 08/15/2023 12:06 PM CDT STMA Blood (Blood, Venous) 08/15/2023 11:56 AM CDT 08/15/2023 12:03 PM CDT Hayde Song M.D. LAB BLOOD NON ADD-O N Performing Organization Address City/[facility]/ZIP Co de Phone Number [facility] [address] [place] [address], [facility] [address] [place] [address] * (ABNORMAL) Glucose, Whole Blood (08/15/2023 11:56 AM CDT) Glucose 144(H) 70 - 140 mg/dL 08/15/2023 12:06 PM CDT STMA Blood (Blood, Arterial Line) 08/15/2023 11:56 AM CDT 08/15/2023 12:03 PM CDT Hayde Song M.D. LAB BLOOD ADD-ON [facility] [address] [place] [address], [facility] [address] [place] [address] * Potassium, Blood (08/15/2023 11:56 AM CDT) Potassium, B 4.3 3.6 - 5.2 mmol/L 08/15/2023 12:07 PM CDT STMA Blood (Blood, Arterial Line) 08/15/2023 11:56 AM CDT 08/15/2023 12:03 PM CDT Hayde Song M.D. LAB BLOOD NON ADD-O N [facility] [address] [place] [address], [facility] [address] [place] [address] * Sodium, B (08/15/2023 11:56 AM CDT) Sodium, B 135 135 - 145 mmol/L 08/15/2023 12:06 PM CDT STMA Blood (Blood, Arterial Line) 08/15/2023 11:56 AM CDT 08/15/2023 12:03 PM CDT Hayde Song M.D. LAB BLOOD NON ADD-O N Performing Organization Address City/[facility]/ZIP Co de Phone Number [facility] [address] [place] [address], [facility] [address] [place] [address] * (ABNORMAL) Calcium, Ionized (08/15/2023 11:56 AM CDT) Calcium, Ionized, B 4.53(L) 4.65 - 5.30 mg/dL 08/15/2023 12:07 PM CDT STMA Blood (Blood, Arterial Line) 08/15/2023 11:56 AM CDT 08/15/2023 12:03 PM CDT Hayde Song M.D. LAB BLOOD NON ADD-O N [facility] [address] [place] [address], [facility] [address] [place] [address] * (ABNORMAL) Blood Gas with Coox, Arterial [...] [facility] [address] [place] [address], [facility] [address] [place] [address] * [place] Fluoro Less Than 1 Hour [...] CDT 08/15/2023 10:28 AM CDT Rae Gonzalez RF MANAGER, GASOLINE SERVICE ATTENDANT, DNAP LAB BLOO D NON ADD-ON Performing Organization Address City/[facility]/ZIP Co de Phone Number [facility] [address] [place] [address] * Lactate, B - Intra-op (08/15/2023 10:28 AM CDT) Pathologist [facility] Lactate, B 1.1 0.5 - 2.2 mmol/L 08/15/2023 10:30 AM CDT STMA Blood (Blood, Venous) 08/15/2023 10:28 AM CDT 08/15/2023 10:28 AM CDT Hayde Song M.D. LAB BLOOD NON ADD-O N Performing Organization Address City/[facility]/ZIP Co de Phone Number [facility] [address] [place] [address] * Glucose, Whole Blood (08/15/2023 10:28 AM CDT) Pathologist [facility] Glucose 134 70 - 140 mg/dL 08/15/2023 10:30 AM CDT STMA Blood (Blood, Arterial Line) 08/15/2023 10:28 AM CDT 08/15/2023 10:28 AM CDT Hayde Song M.D. LAB BLOOD ADD-ON [facility] [address] [place] [address] * Potassium, Blood (08/15/2023 10:28 AM CDT) Potassium, B 4.1 3.6 - 5.2 mmol/L 08/15/2023 10:31 AM CDT STMA Blood (Blood, Arterial Line) 08/15/2023 10:28 AM CDT 08/15/2023 10:28 AM CDT Hayde Song M.D. LAB BLOOD NON ADD-O N [facility] [address] [place] [address], [facility] [address] [place] [address] * Sodium, B (08/15/2023 10:28 AM CDT) Sodium, B 135 135 - 145 mmol/L 08/15/2023 10:30 AM CDT STMA Blood (Blood, Arterial Line) 08/15/2023 10:28 AM CDT 08/15/2023 10:28 AM CDT Hayde Song M.D. LAB BLOOD NON ADD-O N [facility] [address] [place] [address], [facility] [address] [place] [address] * (ABNORMAL) Calcium, Ionized (08/15/2023 10:28 AM CDT) Calcium, Ionized, B 4.25(L) 4.65 - 5.30 mg/dL 08/15/2023 10:31 AM CDT STMA Blood (Blood, Arterial Line) 08/15/2023 10:28 AM CDT 08/15/2023 10:28 AM CDT Hayde Song M.D. LAB BLOOD NON ADD-O N [facility] [address] [place] [address], [facility] [address] [place] [address] * (ABNORMAL) Blood Gas with Coox, Arterial [...] BLOOD NON ADD-O N Performing Organization Address City/[facility]/ZIP Co de Phone Number [facility] [address] [place] [address], [facility] STMA [facility] [address] [place] [address] * Bacteria / Yomaira Culture, Blood #2 [...] - G ENERAL ORDERABLES Performing Organization Address [facility] Co de Phone Number [facility] [address] [place] [address], [facility] [address] [place] [address] * (ABNORMAL) Basic Metabolic Panel (08/15/2023 3:31 AM CDT) Pathologist [facility] Potassium, [...] Jakob De Paz M.D. LAB BLOOD ADD-ON [facility] [address] [place] [address] * Bacteria / Yomaira Culture, Blood #1 (08/15/2023 3:31 AM CDT) [facility] Bacteria/Leyla da Culture, Blood No growth after 5 days of incubation. 08/20/2023 6:02 AM CDT DTL Blood (Blood, Peripheral Draw) 08/15/2023 3:31 AM CDT 08/15/2023 5:59 AM CDT Comment:Specimen Source Site : Blood Carlos Alberto Henson M.D. LAB MICROBIOLOGY - G ENERAL ORDERABLES [facility] 200 [place] [address] * (ABNORMAL) CBC with Differential, Blood (08/15/2023 3:30 AM CDT) Pathologist [facility] Hemoglobin 9.5(L) 13.2 - 16.6 g/dL 08/15/2023 [...] [facility] [address] [place] [address], [facility] [address] [place] [address] [facility] [address] [place] [address] * (ABNORMAL) CBC with Differential, Blood (08/14/2023 8:08 PM CDT) [facility] Hemoglobin 9.8(L) 13.2 - 16.6 [...] - 6.45 x10(9)/L 08/14/2023 8:14 PM CDT [facility] Lymphocytes 0.30(L) 0.95 - 3.07 x10(9)/L [...] [facility] [address] [place] [address], [facility] STMA [facility] [address] [place] [address] [facility] [address] [place] [address] * Transfuse Red Blood Cells : , [...] with Differential, Blood (08/14/2023 3:18 AM CDT) [facility] Hemoglobin 7.6(L) 13.2 - 16.6 [...] - 6.45 x10(9)/L 08/14/2023 3:23 AM CDT [facility] Lymphocytes 0.36(L) 0.95 - 3.07 x10(9)/L [...] [facility] [address] [place] [address], [facility] STMA [facility] [address] [place] [address] * (ABNORMAL) Basic Metabolic Panel (08/14/2023 3:18 AM CDT) Pathologist [facility] Potassium, S 5.4(H) 3.6 - 5.2 mmol/L [...] CDT 08/14/2023 4:32 AM CDT Carlos Alberto Hensno M.D. LAB BLOOD ADD-ON [facility] [address] [place] [address], [facility] DTL [address] [address] * Type and Screen (with Reflex Antibody [...] BLOOD BANK TEST ORDERABLES Performing Organization Address City/[facility]/ZIP Co de Phone Number [facility] [address] [place] [address], [facility] [address] [address] * (ABNORMAL) Bacteria / Yomaira Culture, Blood #1 (08/13/2023 7:35 PM CDT) Bacteria/Cand jessica Culture, Blood ESCHERICHIA COLI Growth after 11 Hours (A) 08/16/2023 11:17 AM CDT DTL Comment: 3 of 3 Bottles, Susceptibilities performed on another specimen [id number] Blood (Blood, Peripheral Draw) 08/13/2023 7:35 PM CDT 08/13/2023 8:15 PM CDT Comment:Specimen Source Site : Blood Carlos Alberto Henson M.D. LAB MICROBIOLOGY - G ENERAL ORDERABLES [facility] [address] [place] [address], [facility] DTL [facility] [address] [place] [address] * ECG 12 Lead (08/13/2023 7:02 PM CDT) Ventricular Rate ECG/Min 128 BPM MUSE AZ Interval 138 ms MUSE QRSD Interval 64 ms MUSE QT Interval 304 ms MUSE QTC Interval 443 ms MUSE P [place] 45 degrees MUSE R [place] 34 degrees MUSE T Wave [place] 46 degrees MUSE 08/13/2023 7:02 PM CDT 08/13/2023 7:13 PM CDT Impressions MUSE - 08/13/2023 7:13 PM CDT Sinus tachycardia Otherwise normal ECG No previous ECGs available Reviewed by BETTY Walton Narrative Procedure Note Lucas Lee M.D. - 08/13/2023 IMPRESSION: Sinus tachycardia Otherwise normal ECG No previous ECGs available Reviewed by BETTY Walton Toby Wright ECG ORDERABLES Performing Organization Address [facility] Co de Phone Number MUSE NA [...] : Blood Narrative [facility] - 08/16/2023 11:17 AM CDT [...] - G ENERAL ORDERABLES Performing Organization Address City/[facility]/[place] [address] * Magnesium (08/13/2023 5:27 PM CDT) Pathologist [facility] Magnesium, S 1.9 1.7 - 2.3 mg/dL 08/13/2023 6:12 PM CDT DTL Blood (Blood, Venous) 08/13/2023 5:27 PM CDT 08/13/2023 5:58 PM CDT Carlos Alberto Henson M.D. LAB BLOOD ADD-ON Performing Organization Address [facility] [place] [address] * (ABNORMAL) Hepatic Function Panel (08/13/2023 5:27 [...] [facility] [address] [place] [address], [facility] [address] [place] [address] * (ABNORMAL) Basic Metabolic Panel (08/13/2023 5:27 [...] ADD-ON [facility] 200 [place] [address], [facility] [address] [place] [address] * Prothrombin Time (PT) (08/13/2023 5:27 PM CDT) Pathologist [facility] Prothrombin Time, P 12.4 9.4 - 12.5 sec 08/13/2023 5:38 PM CDT STMA INR 1.1 0.9 - 1.1 08/13/2023 5:38 PM CDT [facility] Comment: ----ADDITIONAL INFORMATION---- Standard intensity warfarin therapeutic range: 2.0 to 3.0 ?? High intensity warfarin therapeutic range: 2.5 to 3.5 Blood (Blood, Venous) 08/13/2023 5:27 PM CDT 08/13/2023 5:31 PM CDT Carlos Alberto Henson M.D. LAB BLOOD ADD-ON [facility] [address] [place] [address], [facility] [address] [place] [address] * (ABNORMAL) CBC with Differential, Blood (08/13/2023 [...] [facility] [address] [place] [address], [facility] STMA [facility] [address] [place], [place] [address] [place] [address] [place] [address] * (ABNORMAL) Dipstick, Urine (08/13/2023 5:07 PM [...] M.D. LAB URINE ORDERABLES Performing Organization Address City/[facility]/ZIP Co de Phone Number [facility] [address] [place] [address], [facility] 200 [place] [address] * Osmolality, Urine (08/13/2023 5:07 PM CDT) Osmolality, U 351 150 - 1150 mOsm/kg 08/13/2023 7:46 PM CDT DTL Urine 08/13/2023 5:07 PM CDT 08/13/2023 5:45 PM CDT Carlos Alberto Henson M.D. LAB URINE ORDERABLES Performing Organization Address City/[facility] Co de Phone Number [facility] [address] [place] [address], [facility] [address] [place] [address] * (ABNORMAL) Microscopic Manual (08/13/2023 5:07 PM [...] M.D. LAB URINE ORDERABLES Performing Organization Address City/[facility]/ZIP Co de Phone Number [facility] [address] [place] [address] * pH, Random, Urine (08/13/2023 5:07 PM CDT) pH, Random, U 7.0 4.5 - 8.0 08/13/2023 7:46 PM CDT DT Urine 08/13/2023 5:07 PM CDT 08/13/2023 5:45 PM CDT Carlos Alberto Henson M.D. LAB URINE ORDERABLES Performing Organization Address [facility] Co de Phone Number [facility] [address] [place] [address] * (ABNORMAL) Bacterial Culture, Aerobic + Susceptibility, [...] Carlos Alberto Henson M.D. LAB MICROBIOLOGY - [facility] ORDERABLES [facility] [address] [place] [address], [facility] DTL [facility] [address] [place] [address] * (ABNORMAL) Urinalysis, with Microscopic: Urine, Midstream [...] CDT DTL Predicted 24 HR [place] U [address](H) <229 mg/24 h 08/13/2023 8:50 PM CDT DTL Predicted Range [id number] mg/24 h 08/13/2023 8:50 PM CDT DTL Comment Micro done on <2.5 mL 08/13/2023 7:55 PM CDT DTL Urine (Urine, Midstream) 08/13/2023 5:07 PM CDT 08/13/2023 5:44 PM CDT Carlos Alberto Henson M.D. LAB URINE ORDERABLES [facility] [address] [place] [address], [facility] [address] [place] [address] * Interpretation of Outside CT Abdomen and [...] of the left extrarenal pelvis and ureter. Tabaers catheter in place. Hyperattenuating debris layering within [...] use home supply. 08/17/23: Id'ed by [facility] Rx# [id number], filled 07/22/23. HAZARDOUS - Handle with care. Swallow whole. Do NOT crush, chew or open capsule. Given 08/26/2023 9:12 AM CDT 120 mg Given 08/25/2023 9:08 AM CDT 120 mg Given 08/24/2023 9:12 AM CDT 120 mg fat emulsion nzs-bpz-slucd & fish oil infusion 50 g (SMOFlipid) [...] Lactated Ringer's 1.5 mL/kg/hr ? 75 kg [place] weight (112.5 mL/hr, rounded to 113 mL/hr), intravenous, Continuous, Starting on Tue08/22/23 at 1030, Conditional Phase Pre-Gastrografin Administration. (Rate = 1.5 mL/kg/hr ideal body weight) Lactated Ringer's 0.75 mL/kg/hr ? 75 kg [place] weight (56.25 mL/hr, rounded to 56.3 mL/hr), [...] Brittni Howe R.N.)1242 (Given - Provider: Tayler M Forrest, R.N.)1831 (Given - Provider: Mary Rosado R.N.) 0019 (Not Given - Provider: Fatuma See R.N. - Reason: Patient/family refused)0639 (Given - Provider: Trevor Delcid.N.)1136 (Given - Provider: Tayler Forrest RJonahNJonah)1750 (Not Given - Provider: Antonia Salazar R.N. - Reason: Patient/family refused)2349 (Not Given - Provider: Edith Simental RNarendra - Reason: Patient/family refused) 0624 (Given - Provider: Edith Simental R.NJonah)1244 (Not Given - Provider: Lupe Valdez R.N. [...] Lower UTI, catheter 0615 (Given - Provider: Mayur GomezNJonah)1521 (Given - Provider: Mary Rosado R.Mari.) 0640 (Given - Provider: Fatuma See RJonahN.)1750 (Given - Provider: Antonia Salazar RNarendra) 0627 [...] may use home supply. 08/17/23: Id'ed by [facility]. [facility] Rx# [id number], filled 07/22/23. HAZARDOUS - Handle with care. Swallow whole. Do NOT crush, chew or open capsule. 911 (Given - Provider: Tayler Forrest R.N. - Comment: Pat Murray, -2nd RN) 907 (Given - Provider: Tayler Forrest R.N. - Comment: Pt 's own med from home) 911 (Given - Provider: Lupe Valdez R.N.) fat emulsion vgr-ced-sgcni & fish oil infusion 50 g (SMOFlipid) [...] Tayler Forrest R.N. - Comment: verified by nAtonia Salazar, JAMEL)2127 (Stopped - Provider: Antonia Salazar [...] age or older 0615 (Given - Provider: Mayur GomezNJonah)1520 (Given - Provider: Mary Rosado R.N.) 0638 [...] Salazar R.N.)2328 (Handoff - Provider: Edith Simental R.NJonah - Comment: w/ antonia MCCULLOUGH) 0407 (Rate/Dose Change - Provider: Edith Simental R.N.)0729 (Handoff - Provider: Lupe Valdez R.N. - Comment: Verified with JAMEL Sharma)1153 (Stopped - Provider: Lupe Valdez R.N.) Lactated Ringer's 1.5 mL/kg/hr ? 75 kg [place] weight (112.5 mL/hr, rounded to 113 mL/hr), intravenous, Continuous, Starting on Tue08/22/23 at 1030, Conditional Phase Pre-Gastrografin Administration. (Rate = 1.5 mL/kg/hr ideal body weight) Lactated Ringer's 0.75 mL/kg/hr ? 75 kg [place] weight (56.25 mL/hr, rounded to 56.3 mL/hr), [...] 1547 documented in this encounter Care Teams Patient Portal Representative Relationship Specialty Start Date End Date Elsewhere, Pcp PCP - General Internal Medicine 08/13/23 documented as of this encounter
--- OUTSIDE RECORDS SUMMARY | 2023-12-02 12:48 | XMS_ITS | Encounter Summary ---
Author Organization [facility] Address [address] [place] [address] Care Team Providers Care Motorsports Technician Name Role Phone Elsewhere, Pcp Primary Care Provider Unavailabl e Encounter Details Date Type Department Care Team (Latest Contact Info) Description 08/13/2023 Intake [facility] Social History Tobacco Use Types Packs/Day Years Used Date Smoking Tobacco: Never Smokeless Tobacco: Never [facility] Utilities Answer Date Recorded In the past [...] your living situation today? I have a [facility] place to live 08/13/2023 Sex and Gender Information Value Date Recorded Sex Assigned at Not on file Gender Identity Not on file Sexual Orientation Not on file documented as of this encounter Plan of Treatment Upcoming Encounters Date Type Department Care Team (Latest Contact Info) Description 12/07/2023 10:15 AM CDT Procedure visit Department of Urology in [place] [address] [place] [address] Burke Strauss M.D. [facility] [place] [address] Discharge Disposition: Home or Self Care 12/07/2023 10:30 AM CDT Office Visit Department of Urology in [place] [address] [place] [address] Burke Strauss M.D. 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
--- OUTSIDE RECORDS SUMMARY | 2023-12-02 12:48 | XMS_ITS | Data Portability ---
Author Organization [facility] Address [address] [place] [address] Care Team Providers Care Procurement Consultant Name Role Phone MASOUD SAUER Primary Care Provider Assessment No assessment recorded. Plan of Treatment Reminders Order Date Submit Date Provider Last Modified By Organization Details Last Modified Time Details Appointments None recorded . Lab urinalys is, dipstick 2023 024 [email or web address] [facility], [address], [address], 4 15:08:54 culture, urine 2023 024 [facility], [address], [place], [address], 4 10:11:11 Referral None recorded . Procedures None recorded . Surgeries cystosco py with ureteral stent exchange (SURG) 2021 022 [email or web address] Not available 16:50:47 cystosco py with ureteral stent exchange (SURG) 2021 022 [email or web address] Not available 15:46:30 Imaging None recorded . Medication Orders Myrbetri q 50 mg tablet,e xtended release 2021 022 [id number], [address] [place], [place], [id number], 2 17:50:02 Bactrim DS 800 mg-160 mg tablet 2023 024 [email or web address] [id number], [address] [place], [place], [id number], 16:19:28 Patient TargetsNo targets recorded. Patient InstructionsNo instructions recorded. Reason for Referral None Reported. Results Created Date Observation Date Name Description Value Unit Range Abnormal Flag Note LastModifiedBy Organization Detail LastModifiedTime 06/23/1906/23/2023 URINE CULTU RE final report MICROB IOLOGY RESULT S SOURC E Void KNOWN ALLER CAROLINE NKDA TREAT MENT N/A- was start ed on Bactr im at time of this appt MEDIA PLATE D AT: Media plate d on 2023 @ 3:41 PM COLON Y COUNT < 10,00 0 cfu/m l RESUL T No Furth er Calixto p This lab resul t is being provi ded to you and your provi sydni at the same time in compl iance with the Centu ry Cures Act. Your provi sydni may not have had time to revie w and make recom menda tions based on the resul t. Pleas e allow up to one week for provi sydni revie w. Not Available [facility] [address], [place], [address], 06/25/2023 10:11:11 06/23/19 24 06/23/2023 urina lysis , dipst ick Color-Status Red Not Available [facility] [address], [place], [address], 06/23/2023 15:08:10 06/23/19 24 06/23/2023 urina lysis , dipst ick pH-Status 7.5 Not Available [facility] [address], [place], [address], 06/23/2023 15:08:10 06/23/19 24 06/23/2023 urina lysis , dipst ick Protein-Stat us >=9.0 Not Available [facility] [address], [place], [address], 06/23/2023 15:08:10 06/23/19 24 06/23/2023 urina lysis , dipst ick Nitrates-Sta tus negati ve Not Available [facility] [address], [place], [address], 06/23/2023 15:08:10 06/23/19 24 06/23/2023 urina lysis , dipst ick Blood-Status Large Not Available [facility] [address], [place], [address], 06/23/2023 15:08:10 06/23/19 24 06/23/2023 urina lysis , dipst ick Leuko-Status Negati ve Not Available [facility] [address], [place], [address], 06/23/2023 15:08:10 06/23/19 24 06/23/2023 urina lysis , dipst ick Specimen Type Voided Not Available [facility] [address], [place], [address], 06/23/2023 15:08:10 07/04/19 24 07/01/2023 CT, abdom en + pelvi s, w/o contr ast No observ ation record ed. [email or web address] [facility] [address], [place], [address], 09/01/2023 14:40:29 07/18/19 24 07/18/2023 XR, kidne y + urete r + bladd er No observ ation record ed. [email or web address] [facility] [address], [place], [address], 07/22/2023 15:56:19 Result Notes None recorded. Procedures Surgical History Date Name Laterality Status Provider Name and Address Organization Details Recorded Time Bladder Scan completed Rabia Ferrell [facility], [facility] 06/23/2023 15:08:00 Cystoscopy completed Nicola Ware MD [address], [place], [address], [facility] 12/30/2021 17:11:17 Colonoscopy completed Nicola Ware MD [address], [place], [address], [facility] 12/30/2021 17:11:22 Imaging Results Imaging Date Name Status LastModified by Organiz ation Details LastModified Time 07/01/2023 CT, abdomen + pelvis, w/o contrast completed [address] [facility] [address] [facility], [place], [address], 09/01/2023 14:40:29 07/18/2023 XR, kidney + ureter + bladder completed [address], [place], [address], 07/22/2023 15:56:19 Procedure Notes None recorded. Medical [...] COLONOSCO PY PREP INSTRUCTI ONS RECEIVED FROM [facility] active Not Available Not Available No t Available furosemide 20 mg tablet TAKE 1 TABLET BY MOUTH DAILY active Not Available Not Available No t Available cefuroxime axetil 500 mg tablet active Not Available Not Available No t Available polyethylen e glycol 3350 17 gram/dose oral powder MIX AND DRINK DIRECTED IN [facility] PY PREP [employer]I ONS RECEIVED FROM [facility] active Not Available Not Available No t [...] Updated DateTime 12/30/2021 177.8 cm 27.4 kg/m2 17502.14 g Nicola Ware MD [address] [place] [address], [address], [facility] 12/30/2021 17:10:12 Date Recorded Body height Body mass index (BMI) Body weight Provider Name and Address Organization Details Last Updated DateTime 03/12/2022 177.8 cm 27.4 kg/m2 96056.14 g Rabia Ferrell [facility] 03/12/2022 13:55:47 Social History Question Answer Notes LastModified by Organizat ion Details LastModified Time Tobacco Smoking Status Never Smoker Nicola Ware MD [address] [place] [address],[address], [address], [facility] 12/30/2021 17:11:00 What Is [...] Encounter Closed Date Diagnosis/Indication Diagnosis SNOMED-CT Code [id number] Nicola Ware MD [facility] [address] [place] [address] 12/30/2021 16:01:19 01/01/2022 09:36:50 Increased frequency of urination [id number] Malignant tumor of prostate [id number] Hydronephrosis [id number] Aliza Landeros [facility] [address] [place] [address] 03/12/2022 13:13:50 03/15/2022 14:00:47 Increased frequency of urination [id number] Malignant tumor of prostate 406641484 Hydronephrosis [id number] Nicola Ware MD [facility] [address] [place] [address] 06/23/2023 14:16:52 06/24/2023 08:40:38 Blood in urine [id number] Health Concerns Section Related Observation LastModified by Organization Detai ls LastModified Time None Recorded Concern Status LastModified by Organization Details LastModified Time None Recorded Advance Directives Directive None Recorded Payers Encounter Date Sequence Insurance Name Policy Number Policy Krishnan Covered Member ID Krishnan Member ID Guarantor Name 12/30/2021 1 [employer] (MEDICARE REPLACEMENT/ ADVANTAGE - PPO) [id number] José Miguel D Braucher [id number] José Miguel D Braucher 03/12/2022 1 [employer] (MEDICARE REPLACEMENT/ ADVANTAGE - PPO) [id number] José Miguel D Braucher [id number] José Miguel D Braucher 06/23/2023 1 [employer] (MEDICARE REPLACEMENT/ ADVANTAGE - PPO) [id number] José Miguel D Braucher [id number] José Miguel Craig Braucher Notes Date Note Type Note Provider Name and Address Organization Details Recorded Time 12/30/2021 text/html HPI Notes: Excer pt from hospital consultation... 81 y.o. year old male who was admitted to [facility] for gross hematuria & CT [...] of the history. Nicola Ware MD [address], [place], [address], [facility] 12/30/2021 23:07:10 03/12/2022 text/html HPI Notes: Excer pt from hospital consultation... 81 y.o. year old male who was admitted to [facility] for gross hematuria & CT [...] some of the history. Nicola Ware MD [address] [place] [address],[address], [place], [address], [facility] 03/12/2022 17:21:47 06/23/2023 text/html HPI Notes: 83 Y male here after calling triage this AM with hematuria/pain with urination. Patient has stent in place, last exchange 02/08/2022. 06/23/23 visit completed by Curry Ware MD [address] [place] [address],[address], [place], [address], [facility] 06/23/2023 16:19:33
--- OUTSIDE RECORDS SUMMARY | 2023-12-02 12:48 | XMS_ITS | Clinical Summary ---
Author Organization 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 CRP=198.87 Bladder mass 02/29/2020 04/30/2020 Hematuria 02/29/2020 03/05/2020 Acute deep vein thrombosis (DVT) 02/29/2020 11/20/2020 S/P coronary angioplasty 11/03/2016 Chest pain 09/15/2016 03/05/2020 Elevated prostate specific antigen (PSA) 10/06/2010 03/05/2020 Hip arthritis 10/06/2010 03/05/2020 Colon polyp 07/15/2010 PATRICE (acute kidney injury) Obstructive uropathy 020 Encounters Date Type Department Care Team Description 11/30/2023 10:30 AM CDT Office Visit [facility] [address] [place] [address] Cesar Mccollum MD Follow Up; Medication Management (Discuss plavix - not currently taking it) 11/30/2023 Travel 11/25/2023 11:00 AM CDT Home Care Visit [address] [address] Raffy Carter, PT PT - INITIAL ASSESSMENT 11/23/2023 8:00 AM CDT Home Care Visit [address] [address] Brittanie Prieto RN SN - HOME VISIT 11/21/2023 3:30 PM CDT Home Care Visit [address] [address] Rigo Heart RN SN - OASIS RESUMPTION OF CARE 11/18/2023 Home Care Visit [address] [address] Rufina Cosby RN CARE COORDINATION 11/14/2023 11:30 AM CDT Home Care Visit [address] [address] Brittanie Prieto RN SN - MISSED VISIT 11/14/2023 Home Care Visit [address] [address] Raffy Carter, PT PT - OASIS TRANSFER 11/11/2023 10:30 AM CDT Home Care Visit [address] [address] Raffy Carter, PT PT - HOME VISIT 11/09/2023 9:00 AM CDT Home Care Visit [address] [address] Barbara Fuentes RN SN - HOME VISIT 11/07/2023 Home Care Visit [address] [address] Rufina Cosby, RN CARE COORDINATION 11/04/2023 10:30 AM CDT Home Care Visit [address] [address] Raffy Carter, PT PT - HOME VISIT 10/31/2023 11:00 AM CDT Home Care Visit [address] [address] Doreen Hussein RN SN - HOME VISIT 10/31/2023 2:30 AM CDT Home Care Visit [address] [address] Liz Fang LICSW PAINTER MAINTENANCE - MISSED VISIT 10/28/2023 10:30 AM CDT Home Care Visit [address] [address] Raffy Carter, PT PT - HOME VISIT 10/25/2023 11:30 AM CDT Home Care Visit [address] [address] Raffy Carter, PT PT - REASSESSMENT 10/24/2023 11:00 AM CDT Home Care Visit [address] [address] Doreen Hussein, JAMEL SN - HOME VISIT 10/24/2023 10:00 AM CDT Home Care Visit [address] [address] Liz Fang LICSW PAINTER MAINTENANCE - HOME VISIT 10/21/2023 12:00 PM CDT Home Care Visit [address] [address] Raffy Carter, PT PT - HOME VISIT 10/20/2023 10:35 AM CDT Office Visit [address] [address] Cesar Mccollum MD Follow Up; Concerns (Discuss protocol for hyperbaric treatment at hospital) 10/20/2023 Travel 10/19/2023 9:45 AM CDT Home Care Visit [address] [address] Rigo Heart, JAMEL SN - HOME VISIT 10/18/2023 Home Care Visit [address] [address] Milli Torre, RN CARE COORDINATION 10/17/2023 3:00 PM CDT Home Care Visit [address] [address] Raffy Carter, PT PT - HOME VISIT 10/17/2023 10:00 AM CDT Home Care Visit [address] [address] Liz Fang [facility] PAINTER MAINTENANCE - INITIAL ASSESSMENT 10/14/2023 Home Care Visit [address] [address] Raffy Carter, PT PT - MISSED VISIT 10/12/2023 Telephone [facility] [address] [place] [address] Cesar Mccollum MD Questions 10/11/2023 7:15 AM CDT Home Care Visit [address] [address] Manav Montero, RN SN - WOUND/OSTOMY CHART CONSULT 10/10/2023 4:00 PM CDT Home Care Visit [address] [address] Deonna Oliveira PTA PT - HOME VISIT 10/10/2023 10:30 AM CDT Home Care Visit [address] [address] Milli Torre, RN SN - HOME VISIT 10/08/2023 9:00 AM CDT Home Care Visit [address] [address] Justyna Hernandez, JAMEL SN - INITIAL ASSESSMENT 10/08/2023 Telephone [facility] [address] [place] [address] Cesar Mccollum MD Home Care (BP med parameters) 10/07/2023 11:30 AM CDT Home Care Visit [address] [address] Raffy Carter, PT PT - HOME VISIT 10/07/2023 Home Care Visit [address] [address] Milli Torre, RN CARE COORDINATION 10/06/2023 1:00 PM CDT Ancillary Procedure [facility] [address] [place] [address] 10/06/2023 Travel 10/04/2023 1:00 PM CDT Office Visit [facility] [address] [place] [address] Souleymane Miller MD Follow Up (Annual Follow up /Coronary artery disease) 10/04/2023 10:15 AM CDT Home Care Visit [address] [address] Manav Rodríguez, PT PT - OASIS START OF CARE 10/04/2023 Telephone [facility] [address] [place] [phone] Manav Rodríguez, PT Home Care 10/04/2023 Orders Only [facility] [address] [place] [phone] Souleymane Miller MD 1 scan: (1-Ord) NFLD-EKG-10/04/23 10/04/2023 Travel 10/04/2023 Plan of Care Documentation [address] [address] 10/03/2023 Telephone [facility] [address] [place] [address] Cesar Mccollum MD Questions 10/02/2023 Home Care Visit [address] [address] Saul Lawson, RN CARE COORDINATION 10/01/2023 Home Care Visit [place] [address] [place] [address] Saul Lawson, RN CARE COORDINATION 09/29/2023 1:40 PM CDT Office Visit [facility] [address] [place] [facility] [place] [address] Cesar Mccollum MD Hospital F/U (Jaffrey, urinary problem); Concerns (Bed sore - would like checked) 09/29/2023 Travel 09/23/2023 Telephone [facility] [address] [place] [address] Cesar Mccollum MD Results 09/22/2023 10:30 AM CDT Orders Only [facility] [place] [address] Lab, [facility] 09/22/2023 9:50 AM CDT Nurse/Clinic Staff Only [facility] [place] [address] Dressing Change 09/22/2023 Telephone [facility] [address] [place] [address] Cesar Mccollum MD Results 09/22/2023 Travel 09/21/2023 3:20 PM CDT Nurse/Clinic Staff Only [facility] [address] [place] [address] Procedure (UA collection from jon and neph tube) 09/21/2023 Telephone [facility] [address] [place] [facility] [place] [address] Letty Mera MD 09/20/2023 2:15 PM CDT Ancillary Procedure [facility] [address] [place] [facility] [address] 09/20/2023 1:00 PM CDT Office Visit [facility] [address] [place] [address] Letty Mera MD Hospital F/U (Admission Date: 09/09/2023 Discharge Date: 09/15/23); Wound Check (sacrum & neph tube site. ); Home Care; Concerns (Feels like catheter is falling out - pt states that it is leaking. ) 09/20/2023 Travel 09/15/2023 Transcribe Orders [facility] [address] [place], [place] [id number] Provider, Non-Excellian 09/13/2023 Telephone [facility] [address] [place] [address] Cesar Mccollum MD Procedure (social work supervisor) from Last 3 Months Immunizations Name Administration Dates Next Due COVID-19 Vaccine Spikevax (M oderna 50mcg/0.5mL) 12YO+ [id number] Formula PF 07/21/2023,03/08/2023 COVID-19 vaccine (Pfizer-Bio NTech [...] Sign Reading Time Taken Comments Blood Pressure 112/73 11/30/2023 10:38 AM CDT Pulse 64 11/30/2023 10:38 AM CDT Temperature 36.6 ??C (97.9 ??F) 11/25/2023 11:25 AM C DT Respiratory Rate 15 11/25/2023 11:25 AM CDT Oxygen Saturation 95% 11/30/2023 10:38 AM CDT Inhaled Oxygen Concentration - - Weight 80.6 kg (177 lb 9.6 oz) 11/30/2023 10:38 AM CDT Height 177.1 cm (5' 9.72) 07/21/2023 9:05 AM CD T Body Mass Index 25.69 07/21/2023 9:05 AM CDT Plan of Treatment Health Maintenance [...] Completed 4 Medical Devices Implanted Type Area Bending Press Operator Device Identifier Shelf Expiration Date Model / Serial / Lot Stent Uret [id number] Contour - [id number] Implanted:Qty: 1 on 07/18/2023 by Nicola Ware MD at [facility] Right: [employer] [facility] 02/27/2026 [id number] / / [id number] Procedures Procedure Name Priority Date/Time Associated Diagnosis Comments HEMOGLOBIN Routine 11/30/2023 11:45 AM CDT Chronic blood loss anemia ECHO TTE COMPLETE WO CONTRAST DEBBI 10/06/2023 1:34 PM CDT Coronary artery disease, unspecified vessel or lesion type, unspecified whether angina present, unspecified whether [place] or transplanted heart EKG 12 LEAD Routine 10/04/2023 2:15 PM CDT Coronary artery disease, unspecified vessel or lesion type, unspecified whether angina present, unspecified whether [place] or transplanted heart MD READING EKG - NO CHARGE, COMP ONLY Routine 10/04/2023 2:14 PM CDT Coronary artery disease, unspecified vessel or lesion type, unspecified whether angina present, unspecified whether [place] or transplanted heart CBC WITH AUTO DIFFERENTIAL [...] 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) from Last 3 Months Results * (ABNORMAL) HEMOGLOBIN (11/30/2023 11:45 AM CDT) Pathologist [facility] HEMOGLOBIN 10.4(L) 13.5 - 17.5 g/dL 11/30/2023 11:50 AM CDT [facility] MCV 92 80 - 100 fL 11/30/2023 11:50 AM CDT [facility] Blood BLOOD SPECIMEN / Unknown Venipuncture / Unknown 11/30/2023 11:45 AM CDT 11/30/2023 11:45 AM CDT Cesar Mccollum MD HEMATOLOGY [facility] [address] [place] [address], * ECHO TTE COMPLETE WO CONTRAST (10/06/2023 1:34 PM CDT) Pathologist [facility] AORTIC VALVE MEAN PG 10 mmHg EJECTION FRACTION 60 % PEAK TR VELOCITY 2.8 m/s LVEDD 4.2 cm EJECTION FRACTION 65 - 70% Anatomical Region Laterality Modality Ultrasound 10/06/2023 12:5 9 PM CDT Narrative 10/06/2023 2:17 PM CDT ECHOCARDIOGRAM SHYAM SANDS ? Accession#: ?? [id number] : ?1940 83 years Study Date: ?? 10/06/2023 12:59:18 PM Gender: M ?BP: ? 131/72 mmHg Height: 175.26 cm ?BSA: ?1.98 m? ? ? Weight: 81.65 kg ? Tech: ? MBF ? Referring MD: SOULEYMANE MILLER Site: ? [facility] Reading Location: [facility] Patient Location: Outpatient. Procedure: 2D, Color [...] . This study was interpreted by an [facility] accredited facility. ??Final ?? Procedure Note Manav Feilciano MD - 10/06/2023 ECHOCARDIOGRAM SHYAM SANDS : 1940 83 years Study Date: 10/06/2023 12:59:18 PM Gender: M BP: 131/72 mmHg Height: 175.26 cm BSA: 1.98 m? ? ? Weight: 81.65 kg Tech: [facility] Referring MD: SOULEYMANE MILLER Site: [facility] Reading Location: [facility] Patient Location: Outpatient. Procedure: 2D, Color [...] . This study was interpreted by an [facility] accredited facility. Final Souleymane Miller MD [...] 11.0 thou/cu mm 09/22/2023 10:46 AM CDT [facility] RED BLOOD COUNT 2.81(L) 4.30 - 5.90 mil/cu mm 09/22/2023 10:46 AM CDT [facility] HEMOGLOBIN 8.0(L) 13.5 - 17.5 g/dL 09/22/2023 10:46 AM CDT [facility] HEMATOCRIT 25.2(L) 37.0 - 53.0 % 09/22/2023 10:46 AM CDT [facility] MCV 90 80 - 100 fL 09/22/2023 10:46 AM CDT [facility] MCH 28.5 26.0 - 34.0 pg 09/22/2023 10:46 AM CDT [facility] MCHC 31.7(L) 32.0 - 36.0 g/dL 09/22/2023 10:46 AM CDT [facility] RDW 17.5(H) 11.5 - 15.5 % 09/22/2023 10:46 AM CDT [facility] PLATELET COUNT 466(H) 140 - 440 thou/cu mm 09/22/2023 10:46 AM CDT [facility] MPV 8.9 6.5 - 11.0 fL 09/22/2023 10:46 AM CDT [facility] % NEUT 86.3 % 09/22/2023 10:46 AM CDT [facility] % LYMPH 6.6 % 09/22/2023 10:46 AM CDT [facility] % MONO 5.8 % 09/22/2023 10:46 AM CDT [facility] % EOS 1.2 % 09/22/2023 10:46 AM CDT [facility] % BASO 0.1 % 09/22/2023 10:46 AM CDT [facility] ABSOLUTE NEUTROPHILS 9.5(H) 1.7 - 7.0 thou/cu mm 09/22/2023 10:46 AM CDT [facility] ABSOLUTE LYMPHOCYTES 0.7(L) 0.9 - 2.9 thou/cu mm 09/22/2023 10:46 AM CDT [facility] ABSOLUTE MONOCYTES 0.6 <0.9 thou/cu mm 09/22/2023 10:46 AM CDT [facility] ABSOLUTE EOSINOPHILS 0.1 <0.5 thou/cu mm 09/22/2023 10:46 AM CDT [facility] ABSOLUTE BASOPHILS 0.0 <0.3 thou/cu mm 09/22/2023 10:46 AM CDT [facility] Blood BLOOD SPECIMEN / Unknown Venipuncture / Unknown 09/22/2023 10:39 AM CDT 09/22/2023 10:43 AM CDT Letty Mera MD HEMATOLOGY Performing Organization Address City/State/[facility] Co de Phone Number [address] [address], * (ABNORMAL) URINE CULTURE (09/21/2023 4:40 PM CDT) Only the most recent of2 resultswithin the time period is included. CULTURE RESULT(A) 09/24/2023 9:54 AM CDT [facility] CULTURE >100,000 CFU/mL Shirin albicans 09/24/2023 9:54 AM CDT [facility] Urine URINE SPECIMEN / Unknown Non-Blood / Unknown 09/21/2023 4:40 PM CDT 09/21/2023 4:41 PM CDT Letty Mera MD MICROBIOLO GY [facility] [address] [place] [address], [place] * XR CHEST 2 VIEWS PA [...] Signed) Letty Mera MD GENERAL IM AGING from Last 3 Months Advance Directives Documents on File Type Date Recorded Patient Pressure Control Supervisor Expl anation Healthcare Directive 05/15/2021 022 * [...] Code Status Discussion: Reviewed Preferences Care Teams Behavioral Health Worker Relationship Specialty Start Date End Date Cesar Mccollum MD [address] [place] [address] PCP - General Family Practice 03/04/20 Nicola Ware MD [address] [facility] [place] [address] Surgery - Urology 03/13/20 Mireya Tan MD [address] [place] [address] Hematology - Pathology 03/13/20 [facility] [address] [place], [place] [id number] 09/29/23
== END 2023-12-02 12:41 | disposition home or self-care (01) ==
LOC: WOUND 12:41
PROVIDERS: PCP Family Medicine; Visit Provider Nurse Practitioner Family
DX: N30.41 Irradiation cystitis with hematuria (principal); K62.7 Radiation proctitis; L89.153 Pressure ulcer of sacral region, stage 3; D64.9 Anemia, unspecified; Y84.2 Radiological procedure and radiotherapy as the cause of abnormal reaction of the patient, or of later complication, without mention of misadventure at the time of the procedure
CPT/HCPCS: 11042; G0277

== ENCOUNTER 2023-12-07 13:00 | Outpatient (RCR) | payer MEDICARE, OTHER, SELFPAY ==
[2023-11-11 12:06] LABS: Basophils Absolute Auto 0.01 K/uL (0.00-0.30); Basophils Percent Auto 0.1 % (0.0-3.0); Eosinophils Percent Auto 2.5 % (0.0-7.0); Hematocrit 30.6 % (37.0-53.0); Immature Granulocytes Abs Auto 0.03 K/uL (0.00-0.30); Immature Granulocytes Pct Auto 0.4 %; Mean Corpuscular HGB Conc 29 gm/dL (32-36); Mean Corpuscular Hemoglobin 28 pg (26-34); Mean Corpuscular Volume 97 fL (80-100); Platelet Count* 415 K/uL (140-440); RDW Coefficient of Variation % 16.8 % (11.5-15.5); Red Blood Count 3.17 m/uL (4.30-5.90); White Blood Count* 7.99 K/uL (4.50-11.00)
[2023-11-11 12:13] LABS: Slide Review Reflex No
== END 2023-12-10 23:59 | disposition home or self-care (01) ==
LOC: WOUND 13:00
PROVIDERS: PCP Family Medicine; Visit Provider Nurse Practitioner Family
DX: N30.41 Irradiation cystitis with hematuria (principal); L89.153 Pressure ulcer of sacral region, stage 3; K62.7 Radiation proctitis; N13.30 Unspecified hydronephrosis; D64.9 Anemia, unspecified; Y84.2 Radiological procedure and radiotherapy as the cause of abnormal reaction of the patient, or of later complication, without mention of misadventure at the time of the procedure
CPT/HCPCS: 11042; 36415; 85025; G0277

== ENCOUNTER 2023-12-08 12:46 | Outpatient (CLI) | payer MEDICARE, OTHER, SELFPAY ==
--- OUTSIDE RECORDS SUMMARY | 2023-12-08 12:49 | XMS_ITS | Clinical Summary ---
Author Organization [facility] Address [address] [place] [address] Care Team Providers Care Idea Man Name Role Phone Elsewhere, Pcp Primary Care Provider Unavailabl e Source Comments Patient records contain information from all sites at [facility]. For routine questions regarding patient records, call [phone] during business hours, M-F 8:00 AM - 5:00 PM Central Time. Record requests for emergency care only can be directed to [phone] at any time.[facility] Allergies No known active allergies Medications [...] minutes, take the second dose and call [phone] Active tamsulosin (FLOMAX) 0.4 mg 24 [...] DO NOT TAKE UNTIL FOLLOW-UP 4 Active Additional Information Patient not taking.Reported on 12/07/2023 clopidogreL (PLAVIX) 75 mg tablet Take 75 [...] teral 11/15/2023 Atherosclerotic Heart Diseas e Of [place] Coronary Artery Without Angina Pectoris 11/15/2023 Overview (11/15/2023): stent placements 2017 Complication Procedure Initial 11/15/2023 Deficiency Iron 11/15/2023 Hyperlipidemia 11/15/2023 Hypertension Essential Primary 11/15/2023 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 Affecting Estrogen Receptors And Estrogen Levels 11/15/2023 Presence Of Other Vascular Implants And Grafts 0 11/15/2023 Other Specified Disorders Of Bladder 11/15/2023 Other Retention Of Urine 11/15/2023 PreDiabetes 11/15/2023 Presence Of Urogenital Implants 11/15/2023 Unspecified Complication Of Genitourinary Prosthetic Device Implant And Graft Initial 11/15/2023 Inferior Vena Cava Filter 11/15/2023 Icu Nurse (Current) Anticoagulant Treatment 0809/2023 Presence Of Other Specified Devices 10/20/2023 Other [...] Encounters Date Type Department Care Team Description 12/08/2023 9:30 AM CDT Office Visit Department of Urology in [address] [phone] Burke Strauss M.D. Retention Urinary Chronic (Primary Dx) Discharge Disposition: Home or Self Care 12/07/2023 12:19 PM CDT - 12/07/2023 11:59 PM CDT Hospital Encounter Department of Laboratory Medicine in [address] [place] [address] Burke Strauss M.D. Anemia; Hematuria Gross; Retention Urinary Chronic Discharge Disposition: Home or Self Care 12/07/2023 10:30 AM CDT Office Visit Department of Urology in [place], [place] [address] [place] [address], [place] [address] Burke Strauss M.D. Anemia (Primary Dx); Hematuria Gross; Retention Urinary Chronic Discharge Disposition: Home or Self Care 11/30/2023 6:44 PM CDT - 11/30/2023 8:06 PM CDT Emergency [facility] [address] [place] [phone] Carmen Cherry M.D., M.P.H. Leakage Of Other Urinary Catheter Initial (HCC) (Primary Dx) Discharge Disposition: Home or Self Care 11/15/2023 10:40 AM CDT Ancillary Procedure Department of Wound Ostomy 11/14/2023 11:38 PM CDT - 11/17/2023 3:55 PM CDT Hospital Encounter [facility], [facility], Fifth Floor [address] [place] [address] Eliceo Guerrier M.D., Ph.D. Sylvie Álvarez M.B.B.S., MRashawn Gauthier M.D. Burkland, Carl B, M.D. Hematuria Gross (Primary Dx) Discharge Disposition: [place] [facility] [place]/14/2023 10:44 AM CDT - 11/14/2023 10:23 PM CDT Emergency [facility] [address] [place] [phone] Sergio Raza M.D. Hematuria (Primary Dx); Malfunction Mechanical Urethral Catheter Initial (HCC) Discharge Disposition: [facility] 11/14/2023 Documentation Department of Urology in [place], [place] [address] [place] [address] Sowmya Aviles APRN, C.N.P., M.S.N. 11/14/2023 Intake [facility] 11/10/2023 Clinical Communication Department of Urology in [address] [phone] Burke Strauss M.D. Oncology records request 11/09/2023 11:00 AM CDT Office Visit Department of Urology in [address] [phone] Burke Strauss M.D. Primary Malignant Neoplasm Of Prostate (HCC) (Primary Dx); Retention Urinary Chronic; Hematuria Gross Discharge Disposition: Home or Self Care 11/09/2023 Clinical Communication Department of Urology in [address] [phone] Burke Strauss M.D. 10/27/2023 Clinical Communication Department of Urology in [address] [address] Burke Strauss M.D. 10/14/2023 1:00 PM CDT Procedure visit Department of Urology in [place], [place] [address] [place] [phone] Paula Hernandez M.D. Reichmann, Lynne G, R.N. Hematuria 10/14/2023 Documentation Department of Urology in [place], [place] [address] [place] [phone] Paula Hernandez M.D. Catheter Care Plan 09/27/2023 Clinical Communication Department of Urology in [place], [place] [address] [place] [phone] Paula Hernandez M.D. 09/21/2023 Clinical Communication Department of Urology in [place], [place] [address] [place] [phone] Paula Hernandez M.D. 09/16/2023 Clinical Communication Department of Urology in [place], [place] [address] [place] [phone] Provider, Unknown follow up questions 09/16/2023 Orders Only Department of Urology in [place], [place] [address] [place] [address] Paula Hernandez M.D. Hematuria Gross (Primary Dx) 09/15/2023 Clinical Communication [facility] [address] [place] [phone] Yasmine Loco 09/09/2023 12:10 PM CDT Ancillary Procedure Department of Nursing 09/09/2023 7:24 AM CDT - 09/15/2023 5:28 PM CDT Hospital Encounter [facility], [facility], [facility], Sixth Floor [address] [place] [phone] Gerri Merrill M.D., Ph.D. Sumit Holbrook M.D. Hematuria (Primary Dx) Discharge Disposition: Home or Self Care 09/09/2023 Documentation Department of Urology in [place], [place] [address] [place] [phone] Ko Victoria M.D. from Last 3 Months Social History Tobacco Use Types Packs/Day Years Used Date Smoking Tobacco: Never Smokeless Tobacco: Never Tobacco Cessation:Counseling Given: Not Answered [facility] Utilities Answer Date Recorded In the past 12 months has [facility] [employer], gas, oil, or water [employer] threatened to shut off services in your [...] Care Team (Late st Contact Info) Description 12/13/2023 9:15 AM CDT Nurse Only Department of Urology in [place], [place] [address] [place] [address] Burke Strauss M.D. [address] [place] [address] Discharge Disposition: Home or Self Care Health [...] Completed 11/14/2023 Medical Devices Implanted Type Area Foot Press Operator Device Identifier Shelf Expiration Date Model / Serial / Lot Clp Hrzn Ti 6 Clp Lg Orng - [id number] Implanted:Qt y: 1 on 08/15/2023 by Boubacar Brock M.D. at [facility] Hardware e.g. pins/screws /rods Abdomen Teleflex FiberLight [id number] 02/29/2028 [id number] / / [id number] Clp Hrzn Ti 6 Clp Lg Orng - [id number] Implanted:Qt y: 1 on 08/15/2023 by Boubacar Brock M.D. at [facility] Hardware e.g. pins/screws /rods Abdomen Teleflex FiberLight [id number] 02/29/2028 [id number] / / [id number] Clp Hrzn Ti 6 Clp Md Monty - [id number] Implanted:Qt y: 1 on 08/15/2023 by Boubacar Brock M.D. at [facility] Hardware e.g. pins/screws /rods Abdomen Teleflex FiberLight [id number] 03/13/2028 [id number] / / [id number] Clp Hrzn Ti 6 Clp Md Monty - [id number] Implanted:Qt y: 1 on 08/15/2023 by Boubacar Brock M.D. at [facility] Hardware e.g. pins/screws /rods Abdomen [employer] [id number] 03/21/2028 [id number] / / [id number] 3 Stnt Uret Inl 6fx24 - [id number] Implanted:Qt y: 1 on 08/15/2023 by Jakob De Paz M.D. at [facility] Ureteral Stent N/A: Ureter [employer] [id number] 11/18/2027 [id number] / / [id number] Procedures Procedure Name Priority Date/Time Associated Diagnosis Comments CREATININE WITH EGFR, S/P Routine 12/07/2023 12:25 PM CDT Retention Urinary Chronic HEMOGLOBIN, B Routine 12/07/2023 12:25 PM CDT Anemia Hematuria Gross CBC WITHOUT DIFFERENTIAL, B Routine 11/17/2023 7:24 [...] AND SCREEN Routine 09/09/2023 8:03 AM CDT from Last 3 Months Results * (ABNORMAL) Hemoglobin (12/07/2023 12:25 PM CDT) Only the most recent of2 resultswithin the time period is included. Hemoglobin 9.2(L) 13.2 - 16.6 g/dL 12/07/2023 12:33 PM CDT NPRG Blood (Blood, Venous) 12/07/2023 12:25 PM CDT 12/07/2023 12:27 PM CDT Burke Strauss M.D. LAB BLOOD ADD-ON [facility] [address] [place] [address], [facility] NPRG [place] [address] [place] [address] * Creatinine with Estimated GFR (12/07/2023 12:25 PM CDT) Pathologist [facility] Creatinine 1.13 0.74 - 1.35 mg/dL 12/07/2023 12:49 PM CDT NPRG Estimated GFR (eGFR) 64 >=60 mL/min/BSA 12/07/2023 12:49 PM CDT NPRG Comment: Estimated GFR calculated using the 2020 CKD_EPI creatinine equation. Blood (Blood, Venous) 12/07/2023 12:25 PM CDT 12/07/2023 12:27 PM CDT Burke Strauss M.D. LAB BLOOD ADD-ON [facility] [address] [place] [address], [place] [address] [address] [place] [address] * (ABNORMAL) CBC without Differential (11/17/2023 7:24 AM CDT) Only the most recent of7 resultswithin the time period is included. Pathologist [facility] Hemoglobin 9.5(L) 13.2 [...] CDT Candelaria Rivas D.O. LAB BLOOD ADD-ON [facility] [address] [place] [address], [facility] MKTO [facility] [place] [address] [place] [address] * (ABNORMAL) Basic Metabolic Panel (11/17/2023 7:24 AM CDT) Only the most recent of5 resultswithin the time period is included. Potassium, [...] CDT Candelaria Rivas D.O. LAB BLOOD ADD-ON [facility] [address] [place] [address] * Glucose, POCT (11/17/2023 6:45 AM CDT) Glucose, POCT, B 107 70 - 140 mg/dL 11/17/2023 6:45 AM CDT MKTO Blood 11/17/2023 6:45 AM CDT 11/17/2023 7:03 AM CDT Generic Rals LAB POCT ORDERABLES- MANUAL Performing Organization Address [facility] Co de Phone Number [facility] [address] [place] [address] * (ABNORMAL) CBC with Differential, Blood (11/16/2023 [...] CDT Rashawn Vences M.D. LAB BLOOD ADD-ON [facility] [address] [place] [address], [facility] [place] [address] [place] [address] * (ABNORMAL) Comprehensive Metabolic Panel (11/16/2023 6:25 [...] CDT Rashawn Vences M.D. LAB BLOOD ADD-ON [facility] [place] [address], [facility] MKTO [facility] [place] [address] [place] [address] * Transfuse Red Blood Cells : (11/15/2023 6:35 PM CDT) Only the most recent of3 resultswithin the time period is included. Madelyn Cesar D.O. BLOOD TRANSFUSION OR DERABLES * Testing Location (11/15/2023 11:09 AM CDT) Testing Location [facility] DEFAULT 11/15/2023 11:47 AM CDT MKTO Blood 11/15/2023 11:0 9 AM CDT 11/15/2023 11:47 AM CDT Sergio Raza M.D. LAB BLOOD BANK TEST ORDERABLES Performing Organization Address City/[facility] Co de Phone Number [facility] [address] [place] [address], [facility] MKTO [facility] [place] [address] [place] [address] * Coccyx-Wound Ostomy Image Exam (11/15/2023 10:40 [...] RAD IMAGI NG PROCEDURES Performing Organization Address City/[facility] Co de Phone Number [facility] NA * ECG 12 Lead (11/15/2023 6:47 AM CDT) Ventricular Rate ECG/Min 65 BPM MUSE MA Interval 144 ms MUSE QRSD Interval 76 ms MUSE QT Interval 430 ms MUSE QTC Interval 447 ms MUSE P [place] -7 degrees MUSE R [place] 9 degrees MUSE T Wave [place] 19 degrees MUSE 11/15/2023 6:47 AM CDT [...] to determine due to color interference Specific Perry SEE COMMENT 1.001 - 1.035 11/15/2023 8:03 AM CDT MKTO Comment:Unable to determine due to color interference Urobilinogen SEE COMMENT 0.2 - 1.0 mg/dL 11/15/2023 8:03 AM CDT MKTO Comment:Unable to determine due to color interference Urine (Urine, Midstream) 11/15/2023 6:25 AM CDT 11/15/2023 6:34 AM CDT Sylvie Wright M.D. LAB URI NE ORDERABLES Performing Organization Address City/[facility]/ZIP Co de Phone Number [facility] [address] [place] [address], [place] [address] * (ABNORMAL) Microscopic Automated (11/15/2023 6:25 AM [...] LAB URI NE ORDERABLES Performing Organization Address City/[facility]/ZIP Co de Phone Number [facility] [address] [place] [address], [address] [place] [address] * Bacterial Culture, Aerobic + Susceptibility, Urine (11/15/2023 6:24 AM CDT) Only the most recent of2 resultswithin the time period is included. Urine Culture Urogenital microbiota, susceptibilities not performed per laboratory criteria. 11/16/2023 11:36 AM CDT [facility] Urine (Urine, Indwelling Catheter) 11/15/2023 6:24 AM CDT 11/15/2023 9:29 AM CDT Comment:Specimen Source Site : Urine Zachery Tanner APRN C.N.P., M.S. LAB MICROBIOLOGY - GENERAL ORDERABLES [place] [address], [facility] [place] [address] * CT Abdomen Pelvis without IV Contrast [...] BLOOD BANK TEST ORDERABLES Performing Organization Address City/[facility]/ZIP Co de Phone Number [facility] [address] [place] [address], [facility] NPRG [place] [address] [address] [place] [address] * Type and Screen (with Reflex Antibody ID) (11/14/2023 11:09 AM CDT) Only the most recent of2 resultswithin the time period is included. ABO [...] BLOOD BANK TEST ORDERABLES Performing Organization Address City/[facility] Co de Phone Number [facility] [address] [place] [address], [facility] [address] [address] * Heparin Anti-Xa Assay (09/14/2023 3:19 AM CDT) Only the most recent of2 resultswithin the time period is included. Heparin [...] Sumit Holbrook M.D. LAB BLOOD NON ADD-ON [facility] [address] [place] [address], [facility] [address] [place] [address] * IR Nephrostomy Tube Placement Left (09/13/2023 2:20 PM CDT) Anatomical Region Laterality Modality Genito Urinary, Vascular Int erventional RST LOS, Vascular Interventional ARZ LOS, Vascular Interventional FLA LOS Left X-Ray Angiography Impressions 09/13/2023 2:33 PM CDT Left 10 Bahraini percutaneous nephrostomy tube placement. EP Narrative 09/13/2023 [...] tract was further dilated and a 10 Bahraini nephrostomy tube was placed with loop formed [...] sedation timewas: 9 minutes. IMPRESSION: Left 10 Bahraini percutaneous nephrostomy tube placement. EP Latisha Whitehead [...] MICROBIOLOGY - GENERAL ORDERABLES Performing Organization Address City/[facility]/ZIP Co de Phone Number [facility] [address] [place] [address], [facility] [address] [place] [address] * Gram Stain (09/13/2023 2:17 PM CDT) Gram Stain No organisms seen. White blood cells, Rare 09/13/2023 9:02 PM CDT DTL Fluid (Kidney, Left) 09/13/2023 2:17 PM CDT 09/13/2023 3:56 PM CDT Comment:Specimen Source Site : Fluid Latisha Whitehead M.D. LAB MICROBIOLOGY - GENERAL ORDERABLES Performing Organization Address City/[facility]/ZIP Co de Phone Number [facility] [address] [place] [address], [facility] [address] [place] [address] * Fungal Culture, Routine (09/13/2023 2:17 PM CDT) Pathologist [facility] Fungal Culture, Routine No growth after 24 days of incubation. 10/08/2023 1:02 AM CDT DTL Fluid (Kidney, Left) 09/13/2023 2:17 PM CDT 09/13/2023 3:56 PM CDT Comment:Specimen Source Site : Fluid Latisha Whitehead M.D. LAB MICROBIOLOGY - GENERAL ORDERABLES Performing Organization Address City/[facility]/ZIP Co de Phone Number [facility] [address] [place], [place] [address] [place] [address] * Bacterial Culture, Anaerobic + Susceptibility (09/13/2023 2:17 PM CDT) Pathologist [facility] Bacterial Culture, Anaerobic + Susc No growth after 14 days of incubation. 09/27/2023 8:04 AM CDT DT Fluid (Kidney, Left) 09/13/2023 2:17 PM CDT 09/13/2023 3:56 PM CDT Comment:Specimen Source Site : Fluid Latisha Whitehead M.D. LAB MICROBIOLOGY - GENERAL ORDERABLES [facility] [address] [place], [place] [address] [place] [address] * APTT (Activated Partial Thromboplastin Time) (09/13/2023 5:56 AM CDT) Only the most recent of7 resultswithin the time period is included. Pathologist [facility] Activated Partial Thrombopl Time, P 35 25 - 37 sec 09/13/2023 7:14 AM CDT DTL Blood (Blood, Venous) 09/13/2023 5:56 AM CDT 09/13/2023 6:53 AM CDT Sumit Holbrook M.D. LAB BLOOD ADD-ON [facility] [address] [place] [address], [place] DTL [facility] [address] [place] [address] * NM Kidney DMSA (09/12/2023 12:21 PM [...] Js Yang M.D. G NM PROCEDURES * US Urinary Bladder (09/10/2023 [...] urinary catheter.No internal vascularity. Js Yang M.D. [facility] US PROCEDURES * Coccyx-Nursing Image Exam (09/09/2023 [...] RAD IMAGI NG PROCEDURES Performing Organization Address City/[facility]/ZIP Co de Phone Number [facility] NA * Osmolality, Urine (09/09/2023 11:28 AM CDT) Osmolality, U 380 150 - 1150 mOsm/kg 09/09/2023 12:19 PM CDT DTL Urine 09/09/2023 11:2 8 AM CDT 09/09/2023 11:58 AM CDT Jeffery Church M.D. LAB URINE ORDERA BLES Performing Organization Address [facility] Co de Phone Number [facility] [address] [place] [address], [facility] [address] [place] [address] * (ABNORMAL) Dipstick, Urine (09/09/2023 11:28 AM [...] LAB URINE ORDERA BLES Performing Organization Address [facility] Co de Phone Number [facility] [address] [place] [address], [facility] [address] [place] [address] * pH, Random, Urine (09/09/2023 11:28 AM CDT) pH, Random, U 6.3 4.5 - 8.0 09/09/2023 12:19 PM CDT DTL Urine 09/09/2023 11:2 8 AM CDT 09/09/2023 11:58 AM CDT Jeffery Church M.D. LAB URINE ORDERHelga BRAVO Performing Organization Address [facility] de Phone Number [facility] [address] [place], [place] [address] [address] [place] [address] * (ABNORMAL) Microscopic Manual (09/09/2023 11:28 AM [...] LAB URINE STEFFANY CROWDERBryon Performing Organization Address [facility] Co de Phone Number [facility] [address] [place], [place] [address] DTL [facility] [address] [place] [address] * (ABNORMAL) Gram Stain, Urine (09/09/2023 11:28 AM CDT) Source Urine, Urine, Straight Catheter 09/09/2023 11:58 AM CDT DTL Gram Stain, U Positive(A) Negative 09/09/2023 12:16 PM CDT DTL Comment: Few Gram-negative bacilli ? Yeast Urine 09/09/2023 11:2 8 AM CDT 09/09/2023 11:58 AM CDT Jeffery Church M.D. LAB URINE ORDERA BLEBryon Performing Organization Address [facility]/ZIP Co de Phone Number [facility] [address] [place] [address], [facility] DTL [facility] [address] [place] [address] * (ABNORMAL) Urinalysis, with Microscopic: Urine, Straight [...] 09/09/2023 1:02 PM CDT DTL Predicted Range 2480-83292 mg/24 h 09/09/2023 1:02 PM CDT DTL Comment Micro done on <2.5 mL 09/09/2023 12:27 PM CDT DTL Urine (Urine, Straight Catheter) 09/09/2023 11:28 AM CDT 09/09/2023 11:58 AM CDT Jeffery Church M.D. LAB URINE MARLONA BLEBryon Performing Organization Address City/[facility]/ZIP Co de Phone Number [facility] [address] [place] [address], [place] DTL [facility] [address] [place] [address] * US Kidneys Bilateral with Bladder (09/09/2023 [...] M.D. LAB BLOOD ADD-ON Performing Organization Address City/State/[facility] Co de Phone Number [facility] [address] [place] [address], [facility] [address] [place] [address] from Last 3 Months Advance Directives For more information, please contact: [phone] * Full Code (Latest Code Status on [...] Answer Comments Full Code: Discussed Care Teams Idea Man Relationship Specialty Start Date End Date Elsewhere, Pcp PCP - General Internal Medicine 08/13/23
--- OUTSIDE RECORDS SUMMARY | 2023-12-08 12:49 | XMS_ITS | Referral Summary ---
Author Organization [facility] Address [address] [place] [address] Care Team Providers Care Marketing Communications Specialist Name Role Phone Cesar Mccollum Primary Care Provider [phone] Allergies No known active allergies Medications Medication [...] on file Medical Devices Implanted Type Area Engineering Writer Device Identifier Shelf Expiration Date Model / Serial / Lot Stent Ureteral Polaris Ultra [id number] Implanted:Qty : 1 on 02/08/2022 by Nicola Ware MD at [facility] Stent Right: Ureter [employer] [id number] 10/08/2024 [id number] Explanted Type Area Engineering Writer Device Identifier Shelf Expiration Date Model / Serial / Lot Stent Came Out Of The Right Ureter Explanted:Qty: 1 on 02/08/2022 by Nicola Ware MD at [facility] Right: Urethra Advance Directives For more information, please contact: [phone] Documents on File Type Date Recorded Patient Sheet Fed Printer Expl anation Advance Directives and Living Will 02/17/2022 Health Care Directiv e 05/15/2021 Healthcare Agents on File Name Relationship Healthcare Agent Relationship Communication Mindy Waterman Daughter [employer] te Health Care Agent Meera Vega Spouse Health Care Agent [phone] (Home) Favio Vega Son [employer] Altern ate Health Care Agent Tereso Vega Son [employer] Alterna te Health Care Agent Care Teams Marketing Communications Specialist Relationship Specialty Start Date End Date Cesar Mccollum [address] [place] [address] PCP - General Family Medicine 11/22/22
--- OUTSIDE RECORDS SUMMARY | 2023-12-08 12:49 | XMS_ITS | Clinical Summary ---
Author Organization [facility] Address [address] [place] [address] Care Team Providers Care Motor Inspection Mechanic Name Role Phone Cesar Mccollum Primary Care Provider [phone] Allergies No known active allergies Medications Medication [...] IMMUNIZATION (1 of 2) 1958 RSV VACCINE (1 - 1-dose 60+ series) 1999 FALL [...] this topic Medical Devices Implanted Type Area Lumber Yard Worker Device Identifier Shelf Expiration Date Model / Serial / Lot Stent Ureteral Polaris Ultra [id number] - [id number] Implanted:Qty : 1 on 02/08/2022 by Nicola Ware MD at [facility] Stent Right: Ureter [employer] [id number] 10/08/2024 [id number] Explanted Type Area Lumber Yard Worker Device Identifier Shelf Expiration Date Model / Serial / Lot Stent Came Out Of The Right Ureter Explanted:Qty: 1 on 02/08/2022 by Nicola Ware MD at [facility] Right: Urethra Advance Directives For more information, please contact: [phone] Documents on File Type Date Recorded Patient Front Desk Clerk Expl anation Advance Directives and Living Will 02/17/2022 Health Care Directiv e 05/15/2021 Healthcare Agents on File Name Relationship Healthcare Agent Relationship Communication Mindy Waterman Daughter Co-First Alterna te Health Care Agent Meera Vega Spouse Health Care Agent Favio Vega Son Co-First Altern ate Health Care Agent Tereso Vega Son Co-First Alterna te Health Care Agent Care Teams Motor Inspection Mechanic Relationship Specialty Start Date End Date Cesar Mccollum [address] [place] [address] PCP - General Family Medicine 11/22/22
--- OUTSIDE RECORDS SUMMARY | 2023-12-08 12:50 | XMS_ITS | Encounter Summary ---
Author Organization [facility] Address [address] [place] [address] Care Team Providers Care Security Test Engineer Name Role Phone Elsewhere, Pcp [...] [facility] to [facility] 11/15/2023 Sex and Gender Information Value Date Recorded Sex Assigned at Not on file Gender Identity Not on file Sexual Orientation Not on file documented as of this encounter Plan of Treatment Upcoming Encounters Date Type Department Care Team (Late st Contact Info) Description 12/13/2023 9:15 AM CDT Nurse Only Department of Urology in [place], [place] [address] [place] [address] Burke Strauss M.D. [address] [place] [address] Discharge Disposition: Home or Self Care documented as of this encounter Visit Diagnoses Not on filedocumented in this encounter Care Teams Security Test Engineer Relationship Specialty Start Date End Date Elsewhere, Pcp PCP - General Internal Medicine 08/13/23 documented as of this encounter
--- OUTSIDE RECORDS SUMMARY | 2023-12-08 12:50 | XMS_ITS | Encounter Summary ---
Author Organization [facility] Address [address] [place] [address] Care Team Providers Care Underground Distribution Engineer Name Role Phone Elsewhere, Pcp Primary Care Provider Unavailabl e Reason for Referral * Outpatient (Routine) - Authorized Specialty Diagnoses / Procedures Referred By Leyla rosenthal Referred To Contact Urology Diagnoses Retention Urinary Chronic Burke Strauss M.D. [address] [place] [address] [facility] Referral ID Status Reason Start Date Expiration Date V isits Requested Visits Authorized [id number] Authorized 12/08/2023 06/08/2025 1 1 Reason for Visit * Reason Comments Follow-up Irrigation of cathet er * Outpatient (Routine) - Closed Specialty Diagnoses / Procedures Referred By Leyla rosenthal Referred To Contact Urology Burke Strauss M.D. [address] [place] [phone] [facility] Region Referral ID Status Reason Start Date Expiration Date Visits Re quested Visits Authorized [id number] Closed 12/07/2023 06/07/2025 1 1 Encounter Details Date Type Department Care Team (Late st Contact Info) Description 12/08/2023 9:30 AM CDT Office Visit Department of Urology in [place], [place] [address] [place] [address] Burke Strauss M.D. [address] [place] [phone] Retention Urinary Chronic (Primary Dx) Discharge Disposition: Home or Self Care Social History Tobacco Use Types Packs/Day Years Used Date Smoking Tobacco: Never Smokeless Tobacco: Never [facility] Utilities Answer Date Recorded In the past 12 months has e [employer], gas, oil, or water [employer] threatened to shut off services in your [...] I have a [place]ia place to live 11/15/2023 Sex and Gender Information Value Date Recorded Sex Assigned at Not on file Gender Identity Not on file Sexual Orientation Not on file documented as of this encounter Plan of Treatment Upcoming Encounters Date Type Department Care Team (Late st Contact Info) Description 12/13/2023 9:15 AM CDT Nurse Only Department of Urology in [place], [place] [address] [place] [address] Burke Strauss M.D. [address] [place] [address] Discharge Disposition: Home or Self Care Scheduled Referrals Name Type Priority Associated Diagnoses Orde r Schedule Urology nurse visit (clinic) Outpatient Referral Routine Retention Urinary Chronic Expected: 12/13/2023, Expires: 03/09/2025 documented as of this encounter Visit Diagnoses Diagnosis Retention Urinary Chronic- Primary documented in this encounter Care Teams Underground Distribution Engineer Relationship Specialty Start Date End Date Elsewhere, Pcp PCP - General Internal Medicine 08/13/23 documented as of this encounter
--- OUTSIDE RECORDS SUMMARY | 2023-12-08 12:50 | XMS_ITS | Encounter Summary ---
Author Organization [facility] Address [address] [place] [address] Care Team Providers Care Wood Sawyer Name Role Phone Elsewhere, Pcp Primary Care Provider Unavailabl e Encounter Details Date Type Department Care Team (Late st Contact Info) Description 11/14/2023 Documentation Department of Urology in [place], [place] [address] [place] [phone] Sowmya Aviles, ARUN, C.N.P., M.S.N. [address] [place] [phone] Social History Tobacco Use Types Packs/Day Years [...] - 11/14/2023 3:31 PM CDT Contacted via [facility] regarding this patient. Not personally seen or evaluated as patient is in the [facility] Emergency Department. Kalen Vega is a 83 y.o. male with medical comorbidities of acute DVT on Plavix, coronary artery disease status post stent, degenerative joint disease, hyperlipidemia, lymphedema, prediabetes. 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 Tan in [place], [place]. Right hydronephrosis and right atrophic kidney [...] was readmitted to hospital. He presented to [facility] Emergency Department today for evaluation of hematuria and no drainage into urinary catheter. He reports leakage around the catheter of urine and blood clots. A 22 Mauritanian three-way catheter was placed, patient was hand [...] CDT Nurse Only Department of Urology in [place], [place] [address] [place] [address] Burke Strauss M.D. [address] [place] [phone] Discharge Disposition: Home or Self Care documented as of this encounter Visit Diagnoses Not on filedocumented in this encounter Care Teams Wood Sawyer Relationship Specialty Start Date End Date Elsewhere, Pcp PCP - General Internal Medicine 08/13/23 documented as of this encounter
--- OUTSIDE RECORDS SUMMARY | 2023-12-08 12:50 | XMS_ITS ---
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 11/15/2023 Overview (11/15/2023): stent placements 2017 Complication Procedure Initial 11/15/2023 Deficiency Iron 11/15/2023 Hyperlipidemia 11/15/2023 Hypertension Essential Primary 11/15/2023 Cognos Bi Administrator Current Use Of Oth er Agents Affecting Estrogen Receptors And Estrogen Levels 11/15/2023 Presence Of Other Vascular Implants And Grafts 0 11/15/2023 Other Specified Disorders Of Bladder 11/15/2023 Other Retention Of Urine 11/15/2023 PreDiabetes 11/15/2023 Presence Of Urogenital Implants 11/15/2023 Unspecified Complication Of Genitourinary Prosthetic Device Implant And Graft Initial 11/15/2023 Inferior Vena Cava Filter 11/15/2023 Cognos Bi Administrator (Current) Anticoagulant Treatment 09/2023 Presence Of Other [...] On Elapsed Days Session Dose Total Dose [id number] 04/28/2020 32 300 cGy 6,000 cGy Lifetime Dose Tracking * Chemical Lifetime Dose Automatic Entry Manual Entr y Radiation 20.4 mGy 20.4 mGy 0 mGy Fluoro Time 2.005 minutes 2.005 minutes 0 minutes DAP (uGy-m2) 479.6 uGy-m2 479.6 uGy-m2 0 uGy-m2 Resolved Problems Problem Noted Date Diagnosed Date Resolved Date Hematuria Gross 08/31/2023 11/17/2023
--- OUTSIDE RECORDS SUMMARY | 2023-12-08 12:50 | XMS_ITS | Encounter Summary ---
Author Organization [facility] Address [address] [place] [address] Care Team Providers Care Shelter Supervisor Name Role Phone Elsewhere, Pcp Primary Care Provider Unavailabl e Reason for Referral * Outpatient (Routine) - Closed Specialty Diagnoses / Procedures Referred By Leyla rosenthal Referred To Contact Burke Lucero M.D. [address] [place] [phone] [facility] Referral ID Status Reason Start Date Expiration Date Visits Re quested Visits Authorized [id number] Closed 12/07/2023 06/07/2025 1 1 Reason for Visit * Reason Comments Follow-up Discuss jon cathet er * Outpatient (Routine) - Closed Specialty Diagnoses / Procedures Referred By Leyla rosenthal Referred To Contact Burke Lucero M.D. [address] [place] [phone] [facility] Referral ID Status Reason Start Date Expiration Date Visits Re quested Visits Authorized [id number] Closed 11/09/2023 05/10/2025 1 1 Encounter Details Date Type Department Care Team (Late st Contact Info) Description 12/07/2023 10:30 AM CDT Office Visit Department of Urology in [place], [place] [address] [place] [phone] Burke Strauss M.D. [address] [place] [phone] Anemia (Primary Dx); Hematuria Gross; Retention Urinary Chronic Discharge Disposition: Home or Self Care Social History Tobacco Use Types Packs/Day Years Used Date Smoking Tobacco: Never Smokeless Tobacco: Never [facility] Utilities Answer Date Recorded In the past 12 months has [facility] [employer], gas, oil, or water [employer] threatened to shut off services in your [...] CDT Nurse Only Department of Urology in [place], [place] [address] [place] [phone] Burke Strauss M.D. [address] [place] [address] Discharge Disposition: Home or Self Care Scheduled Referrals Name Type Priority Associated Diagnoses Orde r Schedule Urology office visit (clinic) General Outpatient Referral Routine Expected: 12/07/2023 (Approximate), Expires: 03/08/2025 documented as of this encounter Results * Creatinine with Estimated GFR (12/07/2023 12:25 PM CDT) Creatinine 1.13 0.74 - 1.35 mg/dL 12/07/2023 12:49 PM CDT [facility] Estimated GFR (eGFR) 64 >=60 mL/min/BSA 12/07/2023 12:49 PM CDT [facility] Comment: Estimated GFR calculated using the 2020 CKD_EPI creatinine equation. Blood (Blood, Venous) 12/07/2023 12:25 PM CDT 12/07/2023 12:27 PM CDT Burke Strauss M.D. LAB BLOOD ADD-ON [facility] [address] [place] [address], [place] NPRG [facility] [address] [place] [address] * (ABNORMAL) Hemoglobin (12/07/2023 12:25 PM CDT) Hemoglobin 9.2(L) 13.2 - 16.6 g/dL 12/07/2023 12:33 PM CDT [facility] Blood (Blood, Venous) 12/07/2023 12:25 PM CDT 12/07/2023 12:27 PM CDT Burke Strauss M.D. LAB BLOOD ADD-ON [facility] [address] [place] [address], [facility] NPRG [facility] [address] [place] [address] documented in this encounter Visit Diagnoses Diagnosis Anemia- Primary Hematuria Gross Retention Urinary Chronic documented in this encounter Care Teams Shelter Supervisor Relationship Specialty Start Date End Date Elsewhere, Pcp PCP - General Internal Medicine 08/13/23 documented as of this encounter
--- OUTSIDE RECORDS SUMMARY | 2023-12-08 12:50 | XMS_ITS | Encounter Summary ---
Author Organization [facility] Address [address] [place] [address] Care Team Providers Care Tax Compliance Officer Name Role Phone Elsewhere, Pcp Primary Care Provider Unavailabl e Encounter Details Date Type Department Care Team (Latest Contact Info) Description 12/07/2023 12:19 PM CDT - 12/07/2023 11:59 PM CDT Hospital Encounter Department of Laboratory Medicine in [place], [place] [address] [place] [address] Burke Strauss M.D. [facility] [place] [address] Anemia; Hematuria Gross; Retention Urinary Chronic Discharge Disposition: Home or Self Care Social History Tobacco Use Types Packs/Day Years Used Date Smoking Tobacco: Never Smokeless Tobacco: Never [facility] Utilities Answer Date Recorded In the [...] every morning. documented as of this encounter Plan of Treatment Upcoming Encounters Date Type Department Care Team (Late st Contact Info) Description 12/13/2023 9:15 AM CDT Nurse Only Department of Urology in [place], [place] [address] [place] [phone] Burke Strauss M.D. [address] [place] [address] Discharge Disposition: Home or Self Care documented as of this encounter Procedures Procedure Name Priority Date/Time Associated Diagnosis Comments HEMOGLOBIN, B Routine 12/07/2023 12:25 PM CDT Anemia Hematuria Gross CREATININE WITH EGFR, S/P Routine 12/07/2023 12:25 PM CDT Retention Urinary Chronic documented in this encounter Results * Creatinine with Estimated GFR (12/07/2023 12:25 PM CDT) Creatinine 1.13 0.74 - 1.35 mg/dL 12/07/2023 12:49 PM CDT [facility] Estimated GFR (eGFR) 64 >=60 mL/min/BSA 12/07/2023 12:49 PM CDT [facility] Comment: Estimated GFR calculated using the 2020 CKD_EPI creatinine equation. Blood (Blood, Venous) 12/07/2023 12:25 PM CDT 12/07/2023 12:27 PM CDT Burke Strauss M.D. LAB BLOOD ADD-ON Performing Organization Address City/[facility]/ZIP Co de Phone Number [facility] [address] [place] [address], [facility] NPRG [place] [address] [place] [address] * (ABNORMAL) Hemoglobin (12/07/2023 12:25 PM CDT) Hemoglobin 9.2(L) 13.2 - 16.6 g/dL 12/07/2023 12:33 PM CDT [facility] Blood (Blood, Venous) 12/07/2023 12:25 PM CDT 12/07/2023 12:27 PM CDT Burke Strauss M.D. LAB BLOOD ADD-ON Performing Organization Address City/[facility]/ZIP Co de Phone Number [facility] [address] [place] [address], [place] NPRG [place] [address] [place] [address] documented in this encounter Visit Diagnoses Diagnosis Anemia Hematuria Gross Retention Urinary Chronic documented in this encounter Care Teams Tax Compliance Officer Relationship Specialty Start Date End Date Elsewhere, Pcp PCP - General Internal Medicine 08/13/23 documented as of this encounter
--- OUTSIDE RECORDS SUMMARY | 2023-12-08 12:50 | XMS_ITS | Encounter Summary ---
Author Organization [facility] Address [address] [place] [address] Care Team Providers Care Chief Engineer Waterworks Name Role Phone Elsewhere, Pcp Primary Care Provider Unavailabl e Reason for Visit * Reason Comments Urinary Catheter Change Pt reports leaki ng from part of three way catheter, believes he may have nicked it with a scissors. Encounter Details Date Type Department Care Team (Late st Contact Info) Description 11/30/2023 6:44 PM CDT - 11/30/2023 8:06 PM CDT Emergency [facility] [address] [place] [phone] Carmen Cherry M.D., M.P.H. [address] [place] [phone] Leakage Of Other Urinary Catheter Initial (HCC) [...] a [facility] place to live 11/15/2023 Sex [...] Everywhere. * Indwelling Urinary Catheter Care Adult [id number] (Liberian) documented in this encounter Medications at [...] CDT Nurse Only Department of Urology in [place], [place] [address] [place] [phone] Burke Strauss M.D. [address] [place] [address] Discharge Disposition: Home or Self Care documented [...] (Due) documented in this encounter Care Teams Chief Engineer Waterworks Relationship Specialty Start Date End Date Elsewhere, Pcp PCP - General Internal Medicine 08/13/23 documented as of this encounter
--- OUTSIDE RECORDS SUMMARY | 2023-12-08 12:50 | XMS_ITS | Encounter Summary ---
Author Organization [facility] Address [address] [place] [address] Care Team Providers Care Nurse Paralegal Name Role Phone Elsewhere, Pcp Primary Care Provider Unavailabl e Reason for Referral * Outpatient (Routine) - Authorized Specialty Diagnoses / Procedures Referred By Contac t Referred To Contact Diagnoses Hematuria Gabe Neal M.D. [address] [place] [address] Referral ID Status Reason Start Date Expiration Date V isits Requested Visits Authorized [id number] Authorized 11/17/2023 05/18/2025 1 1 Encounter Details Date Type Department Care Team (Late st Contact Info) Description 11/14/2023 11:38 PM CDT - 11/17/2023 3:55 PM CDT Hospital Encounter [facility], Fifth Floor [address] [place] [address] Eliceo Guerrier M.D., Ph.D. [address] [place] [address] Sylvie Álvarez M.B.B.S., M.D. [address] [place] [address] Rashawn Vences M.D. [address] [place] [address] Gabe Buckley M.D. [address] [place] [address] Smith Peter (Primary Dx) Discharge Disposition: Home-Health Care Svc Social History Tobacco Use Types Packs/Day Years Used Date Smoking Tobacco: Never Smokeless Tobacco: Never [facility] Utilities Answer Date Recorded In the past 12 months has health system [employer], gas, oil, or water [employer] threatened to shut off services in your [...] [facility] to live 11/15/2023 Sex [...] DISCHARGE SUMMARY BRIEF OVERVIEW Discharge Hospital: Hospital: [facility] Discharge Provider: Gabe Buckley M.D. Primary Care Providers: Dr. 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 Cesar Mccollum to discuss restarting OUTPATIENT FOLLOW UP Scheduled Appointments 12/07/2023 10:15 AM [facility] MULTI SPECIALTY NURSE 01 NPNC; URO NURSE [...] and chronic pressure wounds presented to [place] 11/14/23 gross hematuria including around his indwelling [...] Dr. Gabe Rivas DO. PGY-1 [facility] Family Medicine Residency [place] Associated attestation - Gabe Buckley M.D. - [...] this encounter Progress Notes * Chary Romero L.I.C.STimi - 11/17/2023 2:18 PM CDT SUBJECTIVE Patient is a 83 y.o. male who was admitted to [facility] 11/14/2023 due to Hematuria Gross [R31.0]. Patient was accompanied by son, Kar. This music writer finalized arrangements for resumption of home health care services. 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 INTERVENTION This music writer sent a service reconnection, including resumption of care order, to resumption of home health care services to [facility] as the fax number matches the fax [...] Muscle Mass: Normal Fluid Accumulation: Absent Reduced Software Integrator Strength: Not applicable This is in the [...] 83 y.o. male who was admitted to [facility] 11/14/2023 due to Hematuria Gross [R31.0]. Patient was accompanied by daughter (Mindy) and son (Kar). This music writer continues to assist in home health care reconnection. 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 INTERVENTION Patient's daughter, Mindy, provided this music writer with contact information for Doreen Javier, nurse care director for [facility]; [phone]. This music writer left Doreen a voicemail, requesting a [...] bag -monitor CMP for kidney function -continue SALESFORCE CONSULTANT tamsulosin -continue SALESFORCE CONSULTANT enzalutamide -urine culture, per urology # Coronary artery disease without angina pectoris, status post 6 stents # History of DVTs, status post IVC filter # Hyperlipidemia Is on both Plavix and Xarelto at home. -start Xarelto 11/16/2023 so response can be monitored while hospitalized -continue SALESFORCE CONSULTANT amlodipine -continue SALESFORCE CONSULTANT rosuvastatin -continue SALESFORCE CONSULTANT metoprolol # Chronic Pressure Wound, Coccyx -continue wound care -offloading as much as possible Non-severe (moderate) Malnutrition (11/15/23) The patient meets the ASPEN Criteria of malnutrition based on: Energy Intake: Less than 75% of estimated energy requirement for greater than or equal to 1 month Interpretation of Weight Loss: 7.5% 3 months Body Fat: Normal Muscle Mass: Normal Fluid Accumulation: Absent Reduced Software Integrator Strength: Not applicable This is in the [...] M.D. Candelaria Rivas DO. PGY-1 [facility] Family Medicine Residency [place] Associated attestation - Gabe Buckley M.D. - 11/16/2023 6:25 PM CDT I saw and evaluated the patient, participating in the henderson portions of the service. I reviewed the resident/fellow???s note. I agree with the resident/fellow???s findings and plan. 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 [...] recommendations -monitor CMP for kidney function -continue SALESFORCE CONSULTANT tamsulosin -continue SALESFORCE CONSULTANT enzalutamide -urine culture, per urology # Coronary artery disease without angina pectoris, status post 6 stents # History of DVTs, status post IVC filter # Hyperlipidemia Is on both Plavix and Xarelto at home. Urology recommendations on restarting blood thinners. -may consider restarting one or both on 11/16/2023 so response can be monitored while hospitalized -continue SALESFORCE CONSULTANT amlodipine -continue SALESFORCE CONSULTANT rosuvastatin -continue SALESFORCE CONSULTANT metoprolol # Chronic Pressure Wound, Coccyx -continue wound care -offloading as much as possible Non-severe (moderate) Malnutrition (11/15/23) The patient meets the ASPEN Criteria of malnutrition based on: Energy Intake: Less than 75% of estimated energy requirement for greater than or equal to 1 month Interpretation of Weight Loss: 7.5% 3 months Body Fat: Normal Muscle Mass: Normal Fluid Accumulation: Absent Reduced Software Integrator Strength: Not applicable This is in the [...] M.D. Candelaria Rivas DO. PGY-1 [facility] Family Medicine Residency [place] Associated attestation - Rashawn Vences M.D. - [...] other issues. He showed up in the [facility] room yesterday with complaints of a [...] visits for hematuria. Patient presented at [place] yesterday because of bleeding around his [place] [...] no abdominal pain. Patient presented at [place] where urology was contacted, manual bladder irrigation [...] hemoglobin now 8.2. Patient presented to [place] ED because of bleeding around his [place] catheter. At [place], patient had manual bladder irrigation with normal [...] CDTAssociated Order(s): Dietitian consult (hospital); Dietitian Consult ([facility]) Dietitian Consult (Hospital) Referring Provider: Bolivar [...] had lost 28lbs during his stay in [place] as he was NPO for12 days then [...] Muscle Mass: Normal Fluid Accumulation: Absent Reduced Software Integrator Strength: Not applicable This is in the [...] 84.1 kg BMI (Calculated): 26.6 kg/m?? % [place] Body Weight: 111 % IBW Adjusted Body [...] assessment, Discharge Planning, Other (comment) Primary Language: Sammarinese [employer] Used: No Sexuality/Pronoun: / Person(s) present [...] Neoplastic Disease #4 Atherosclerotic Heart Disease Of [place] Coronary Artery Without Angina Pectoris #5 Deficiency Iron #6 Hyperlipidemia #7 Hypertension Essential Primary #8 Penitentiary Current Use Of Other Agents Affecting Estrogen Receptors And Estrogen Levels #9 Radiation Therapy Proctitis #10 Inferior Vena Cava Filter #11 Penitentiary (Current) Anticoagulant Treatment Social History Marital Status: Family / Household: Lives with and son, Gavin. Has another son (Kar) and a daughter (Mindy). Support System: spouse and children Spirituality/Buddhism/Cultural Factors: None History: No Highest Level of [...] Cooperative, Oriented Communication: Talks, Understands speaking, Understands Sammarinese Shopping: Appropriate to age/development Medication Management: Independent Housekeeping: Appropriate to age/development Meal Prep: Appropriate to age/development Assistive Devices: Eyeglasses, Hearing aid(s) Agency Name: [facility] Provided: long-term once weekly for wound care, PT, social work, DarwinRN care director Transportation: Support from family Baseline Services/Resources Primary care clinic and provider: ELSEWHERE, PCP Anticipated Needs Functional Status: Tasks appropriate to patient's age/development, Transportation use (drive car, use taxi/bus) Assistive Devices: Eyeglasses, Hearing aid(s) Services/Resources: Home health Agency Name: [facility] Provided: long-term once weekly for wound care, PT, social work, Makenzie care director Does the patient need discharge transport arranged?: No Anticipated Discharge Destination: Home-Health Care Svc OBJECTIVE Substance Abuse no symptoms Mental Health Mental Health History: Patient reports no mental health history Patient reports no current concerns Mental Health Treatment History No history of Psychiatric Treatment noted Suicide Risk and Safety Risk Assessment: C-SSRS Short Version: [place] Suicide Severity Rating Scale (Do this one [...] a wound clinic the other day. This music writer spoke to intake with [facility] however the only information provided is that patient is served by the [facility] location and receives long-term, physical therapy, and social work and the fax number for discharge paperwork was provided. Interventions Psychosocial assessment completed. Provided supportive services. Provided education regarding the role of social work. Plan It is anticipated patient will return home with family and resume services through [facility]. Martha Gardiner 11/15/2023 * Jerri Toledo R.N., [place], [facility] - 11/15/2023 10:54 AM CDTAssociated Order(s): [...] visits for hematuria. Patient presented at [place] yesterday because of bleeding around his [place] [...] no abdominal pain. Patient presented at [place] where urology was contacted, manual bladder irrigation with normal saline was performed, and patient was started on CBI. Patient transferred to [place] for further management. WOUND ASSESSMENT: Wound Type: Pressure Injury IP Pressure Injury Staging: Stage 3 Wound Location: Coccyx Wound Orientation: Mid Wound Tunnel/Induration: Length 1 cm, Width 0.5 cm, and Depth 0.3 cm. Wound Bed Tissue: Red and Granulation tissue 100% Leslee-Wound Skin: Blanchable erythema, Maceration, and Lemay PLAN: COCCYX: DAILY 1. Cleanse wound with [...] limit sliding down in chair. Please contact [facility] RNs if you have any question or concerns regarding wound care. Jerri Toledo R.N., LYNNE at [phone] Starla Méndez R.N., CWCN at [phone] * Zachery Tanner, ARUN, C.N.P., M.S. - [...] follows with Medical Oncology Dr. Tan in [place], [place]. Right hydronephrosis and right atrophic kidney [...] Currently undergoing outpatient hyperbaric O2 in [facility]. Mr. Vega currently admitted to [facility] in the setting of recurrent gross hematuria. He wasseen in evaluation at [facility] Emergency Department in the setting [...] in comparison to historical imaging. Ultimately [address] catheter was placed and patient was hand irrigated and initiated on CBI.Patient was transferred to [facility] for ongoing management. Urinalysis 11/15/2023 [...] outpatient HBO (hyperbaric oxygenation therapy) in [facility]. Recommend to continue [...] Outpatient appointment scheduled on 12/07/2023 in [place] with Urology. Could consider discussion about catheter removal/formal voiding trial in the outpatient setting as to limit catheter irritation/potential infection risk contributing to hematuria. Significant pyuria on urinalysis in the setting of his gross hematuria would recommend urine culture. 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 Tan in [place], [place]. Per subjective report today undetectable PSA. [...] discussed with Dr. Valdez. Zachery Tanner APRN [employer] Associated attestation - Manav Valdez M.D. - [...] Pt is a direct admit from [place] ED. He has chronic indwelling catheter, with prostate cancer history. He noticed urine was bloody red. While being seen in [place], 3 waycatheter was inserted and CBI started. [...] and chronic pressure wounds presented to [place] 11/14/23 gross hematuria including around his indwelling [...] CDT Nurse Only Department of Urology in [place], [place] [address] [place] [address] Burke Strauss M.D. [address] [place] [address] Discharge Disposition: Home or Self Care Pending Results Name Type Priority Associated Diagnoses Date /Time Prepare Red Blood Cells, 1 Units Blood Bank Routine 11/14/2023 11:09 AM CDT Scheduled Referrals Name Type Priority Associated Diagnoses Orde r Schedule [facility] referral Outpatient Referral Routine Hematuria Gross Ordered: [...] Rivas D.O. LAB BLOOD ADD-ON [facility] [address] [place] [address], [place] [address] * (ABNORMAL) Basic Metabolic Panel (11/17/2023 7:24 [...] Rivas D.O. LAB BLOOD ADD-ON [facility] [address] [place] [address], [facility] [address] [place] [address] * Glucose, POCT (11/17/2023 6:45 AM CDT) Glucose, POCT, B 107 70 - 140 mg/dL 11/17/2023 6:45 AM CDT [facility] Blood 11/17/2023 6:45 AM CDT 11/17/2023 7:03 AM CDT Generic Rals LAB POCT ORDERABLES- MANUAL [facility] [address] [place] [address], [address] [address] * (ABNORMAL) Hemoglobin (11/16/2023 4:43 PM CDT) Hemoglobin 9.2(L) 13.2 - 16.6 g/dL 11/16/2023 5:13 PM CDT MK[facility] Blood (Blood, Venous) 11/16/2023 4:43 PM CDT 11/16/2023 5:10 PM CDT Madelyn Cesar D.O. LAB BLOOD ADD-ON [facility] [address] [place] [address], [address] [address] * (ABNORMAL) Comprehensive Metabolic Panel (11/16/2023 6:25 [...] Rashawn Vences M.D. LAB BLOOD ADD-ON [facility] [address] [place] [address], [facility] in [place] [address] [place] [address] * (ABNORMAL) CBC with Differential, Blood (11/16/2023 6:25 AM CDT) [facility] Hemoglobin 9.4(L) 13.2 - 16.6 g/dL 11/16/2023 [...] Rashawn Vences M.D. LAB BLOOD ADD-ON [facility] [address] [place] [address], [facility] in [place] [address] [place] [address] * Transfuse Red Blood Cells : (11/15/2023 6:35 PM CDT) Madelyn Cesar D.O. BLOOD TRANSFUSION OR DERABLES * Transfuse Red Blood Cells : , 1 Units (11/15/2023 6:35 PM CDT) Madelyn Cesar D.O. BLOOD TRANSFUSION OR DERABLES * (ABNORMAL) Comprehensive Metabolic Panel (11/15/2023 7:31 AM CDT) Pathologist [facility] Potassium, P 4.2 3.6 - 5.2 mmol/L [...] M.D. LAB BLO OD ADD-ON [facility] [address] [place] [address], [facility] [place] [address] * (ABNORMAL) CBC with Differential, Blood (11/15/2023 [...] M.D. LAB BLO OD ADD-ON [facility] [place] [address], [facility] in [place] [address] [place] [address] * ECG 12 Lead (11/15/2023 6:47 AM CDT) Ventricular Rate ECG/Min 65 BPM MUSE MT Interval 144 ms MUSE QRSD Interval 76 ms MUSE QT Interval 430 ms MUSE QTC Interval 447 ms MUSE P [place] -7 degrees MUSE R [place] 9 degrees MUSE T Wave [place] 19 degrees MUSE 11/15/2023 6:47 AM CDT 11/15/2023 6:53 AM CDT Impressions MUSE - 11/15/2023 6:53 AM CDT Normal sinus rhythm Normal ECG When compared with ECG of 30-Aug-2023 19:44, Premature atrial complexes are no longer present Vent. rate has decreased by ??80 bpm Reviewed by BETTY Powers Narrative Procedure Note Shankar Valdez M.D., Ph.D. - 08/06/2024 IMPRESSION: Normal sinus rhythm Normal ECG When [...] LAB URI NE ORDERABLES Performing Organization Address City/[facility] Co de Phone Number [facility] [address] [place] [address], [facility] in [address] [address] * (ABNORMAL) Urinalysis with Microscopic if Indicated [...] to determine due to color interference Specific [place] SEE COMMENT 1.001 - 1.035 11/15/2023 8:03 AM CDT [facility] Comment:Unable to determine due to color interference Urobilinogen SEE COMMENT 0.2 - 1.0 mg/dL 11/15/2023 8:03 AM CDT MK[facility] Comment:Unable to determine due to color interference Urine (Urine, Midstream) 11/15/2023 6:25 AM CDT 11/15/2023 6:34 AM CDT Sylvie Wright M.D. LAB URI NE ORDERABLES [facility] [address] [place] [address], [facility] in [place] [address] [place] [address] * Bacterial Culture, Aerobic + Susceptibility, Urine (11/15/2023 6:24 AM CDT) Urine Culture Urogenital microbiota, susceptibilities not performed per laboratory criteria. 11/16/2023 11:36 AM CDT [facility] Urine (Urine, Indwelling Catheter) 11/15/2023 6:24 AM CDT 11/15/2023 9:29 AM CDT Comment:Specimen Source Site : Urine Estrella Marmolejo APRNNAddison, M.S. LAB MICROBIOLOGY - GENERAL ORDERABLES [facility] [address] [place] [address], [facility] [place] [address] documented in this encounter Visit Diagnoses Diagnosis Hematuria Gross- Primary Hematuria Gross Primary Malignant Neoplasm Of Prostate (HCC) Anemia In Neoplastic Disease Penitentiary Current Use Of Other Agents Affecting Estrogen Receptors And Estrogen Levels Hypertension Essential Primary Hyperlipidemia Deficiency Iron Radiation Therapy Proctitis Atherosclerotic Heart Disease Of [place] Coronary Artery Without Angina Pectoris Inferior Vena Cava Filter Penitentiary (Current) Anticoagulant Treatment documented in this encounter [...] 800 (Given - Provider: Arik Jolly, R.N.) enzalutamide [...] 0952 (Given - Provider: Dorothea Lynch R.N.) 0801 (Given - Provider: Arik Jolly, R.N.) tamsulosin [...] R.N.) documented in this encounter Care Teams Nurse Paralegal Relationship Specialty Start Date End Date Elsewhere, Pcp PCP - General Internal Medicine 08/13/23 documented as of this encounter
--- OUTSIDE RECORDS SUMMARY | 2023-12-08 12:50 | XMS_ITS ---
Author Organization [facility] Address [address] [place] [address] Care Team Providers Care Architecture Faculty Member Name Role Phone Unavailable Unavailable Unavailable Surgery Details Not on file Complications Check Surgery Details section. Procedure Estimated Blood Loss Check Surgery Details section. Procedure Findings Check Surgery Details section. Procedure Specimens Taken Check Surgery Details section.
--- OUTSIDE RECORDS SUMMARY | 2023-12-08 12:50 | XMS_ITS | Referral Summary ---
Author Organization [facility] Address [address] [place] [address] Care Team Providers Care Liquid Hydrogen Plant Operator Name Role Phone Elsewhere, Pcp Primary Care Provider Unavailabl e Source Comments Patient records contain information from all sites at [facility]. For routine questions regarding patient records, call [phone] during business hours, M-F 8:00 AM - 5:00 PM Central Time. Record requests for emergency care only can be directed to [phone] at any time.[facility] Encounters Date Type Department Care Team Description 12/08/2023 9:30 AM CDT Office Visit Department of Urology in [address] [phone] Burke Strauss M.D. Retention Urinary Chronic (Primary Dx) Discharge Disposition: Home or Self Care 12/07/2023 12:19 PM CDT - 12/07/2023 11:59 PM CDT Hospital Encounter Department of Laboratory Medicine in [address] [phone] Burke Strauss M.D. Anemia; Hematuria Gross; Retention Urinary Chronic Discharge Disposition: Home or Self Care 12/07/2023 10:30 AM CDT Office Visit Department of Urology in [place], [place] [address] [place] [phone] Burke Strauss M.D. Anemia (Primary Dx); Hematuria Gross; Retention Urinary Chronic Discharge Disposition: Home or Self Care 11/30/2023 6:44 PM CDT - 11/30/2023 8:06 PM CDT [facility] [address] [place] [phone] Carmen Cherry M.D., M.P.H. Leakage Of Other Urinary Catheter Initial (HCC) (Primary Dx) Discharge Disposition: Home or Self Care 11/14/2023 11:38 PM CDT - 11/17/2023 3:55 PM CDT Hospital Encounter [facility] [place], [facility], Fifth Floor [address] [place] [phone] Eliceo Guerrier M.D., Ph.D. Sylvie Álvarez M.B.B.SJonah, MRashawn Gauthier M.D. Burkland, Carl B, M.D. Hematuria Gross (Primary Dx) Discharge Disposition: Home-Health [place] [facility] 11/15/2023 10:40 AM CDT Ancillary Procedure Department of Wound Ostomy 11/14/2023 Documentation Department of Urology in [address] [phone] Sowmya Aviles APRN, C.N.P., M.S.N. 11/14/2023 Intake [facility] 11/14/2023 10:44 AM CDT - 11/14/2023 10:23 PM CDT [facility] [address] [place] [phone] Sergio Raza M.D. Hematuria (Primary Dx); Malfunction Mechanical Urethral Catheter Initial (HCC) Discharge Disposition: [facility] 11/10/2023 Clinical Communication Department of Urology in [address] [phone] Burke Strauss M.D. Oncology records request 11/09/2023 Clinical Communication Department of Urology in [place], [place] [address] [place] [phone] Burke Strauss M.D. 11/09/2023 11:00 AM CDT Office Visit Department of Urology in [place], [place] [address] [place] [phone] Burke Strauss M.D. Primary Malignant Neoplasm Of Prostate (HCC) (Primary Dx); Retention Urinary Chronic; Hematuria Gross Discharge Disposition: Home or Self Care 10/27/2023 Clinical Communication Department of Urology in [place], [place] [address] [place] [phone] Burke Strauss M.D. 10/14/2023 Documentation Department of Urology in [place], [place] [address] [place] [phone] Paula Hernandez M.D. Catheter Care Plan 10/14/2023 1:00 PM CDT Procedure visit Department of Urology in [place], [place] [address] [place] [phone] Paula Hernandez M.D. Reichmann, Lynne G, R.N. Hematuria 09/27/2023 Clinical Communication Department of Urology in [place], [place] [address] [place] [phone] Paula Hernandez M.D. 09/21/2023 Clinical Communication Department of Urology in [place], [place] [address] [place] [phone] Paula Hernandez M.D. 09/16/2023 Clinical Communication Department of Urology in [place], [place] [address] [place] [phone] Provider, Unknown follow up questions 09/16/2023 Orders Only Department of Urology in [place], [place] [address] [place] [phone] Paula Hernandez M.D. Hematuria Gross (Primary Dx) 09/15/2023 Clinical Communication [facility] [address] [place] [phone] Yasmine Loco 09/09/2023 7:24 AM CDT - 09/15/2023 5:28 PM CDT Hospital Encounter [facility] [place], [facility], [facility], Sixth Floor [address] [place] [phone] Gerri Merrill M.D., Ph.D. Sumit Holbrook M.D. Hematuria (Primary Dx) Discharge Disposition: Home or Self Care 09/09/2023 12:10 PM CDT Ancillary Procedure Department of Nursing 09/09/2023 Documentation Department of Urology in [place], [place] [address] [place] [phone] Ko Victoria M.D. from Last 3 Months Allergies No known [...] teral 11/15/2023 Atherosclerotic Heart Diseas e Of [place] Coronary Artery Without Angina Pectoris 11/15/2023 Overview (11/15/2023): stent placements 2017 Complication Procedure Initial 11/15/2023 Deficiency Iron 11/15/2023 Hyperlipidemia 11/15/2023 Hypertension Essential Primary 11/15/2023 Chcf Current Use Of Oth er Agents Affecting Estrogen Receptors And Estrogen Levels 11/15/2023 Presence Of Other Vascular Implants And Grafts 0 11/15/2023 Other Specified Disorders Of Bladder 11/15/2023 Other Retention Of Urine 11/15/2023 PreDiabetes 11/15/2023 Presence Of Urogenital Implants 11/15/2023 Unspecified Complication Of Genitourinary Prosthetic Device Implant And Graft Initial 11/15/2023 Inferior Vena Cava Filter 11/15/2023 Rubber Off (Current) Anticoagulant Treatment 09/2023 Presence Of Other [...] Not Answered [facility] [email or web address] Answer Date Recorded In the past 12 months has [facility] [employer], gas, oil, or water [employer] threatened to shut off services in your [...] [place] place to live 11/15/2023 [...] CDT Nurse Only Department of Urology in [place], [place] [address] [place] [phone] Burke Strauss M.D. [address] [place] [phone] Discharge Disposition: Home or Self Care Medical Devices Implanted Type Area Hot Tamale Man Device Identifier Shelf Expiration Date Model / Serial / Lot Clp Hrzn Ti 6 Clp Lg Orng - [id number] Implanted:Qt y: 1 on 08/15/2023 by Boubacar Brock M.D. at [facility] Hardware e.g. pins/screws /rods [employer]dom[employer] [id number] 02/29/2028 [id number] / / [id number] Clp Hrzn Ti 6 Clp Lg Orng - [id number] Implanted:Qt y: 1 on 08/15/2023 by Boubacar Brock M.D. at [facility] Hardware e.g. pins/screws /rods [employer]domen [employer] [id number] 02/29/2028 [id number] / / [id number] Clp Hrzn Ti 6 Clp Md Monty - [id number] Implanted:Qt y: 1 on 08/15/2023 by Boubacar Brock M.D. at [facility] Hardware e.g. pins/screws /rods Abdomen [employer] [id number] 03/13/2028 [id number] / / [id number] Clp Hrzn Ti 6 Clp Md Monty - [id number] Implanted:Qt y: 1 on 08/15/2023 by Boubacar Brock M.D. at [facility] Hardware e.g. pins/screws /rods Abdom[employer] [id number] 03/21/2028 [id number] / / [id number] Stnt Uret Inl 6fx24 - [id number] Implanted:Qt y: 1 on 08/15/2023 by Jakob De Paz M.D. at [facility] Ureteral Stent N/A: Ureter C.[employer].Bard [id number] 11/18/2027 [id number] / / [id number] Procedures Procedure Name Priority Date/Time Associated Diagnosis [...] CDT Burke Strauss M.D. LAB BLOOD ADD-ON [facility] [address] [place] [address], [facility] NPRG [facility] [address] [place] [address] * Creatinine with Estimated GFR (12/07/2023 12:25 PM CDT) Creatinine 1.13 0.74 - 1.35 mg/dL 12/07/2023 12:49 PM CDT NPRG Estimated GFR (eGFR) 64 >=60 mL/min/BSA 12/07/2023 12:49 PM CDT NPRG Comment: Estimated GFR calculated using the 2020 CKD_EPI creatinine equation. Blood (Blood, Venous) 12/07/2023 12:25 PM CDT 12/07/2023 12:27 PM CDT Burke Strauss M.D. LAB BLOOD ADD-ON [facility] [address] [place] [address], [facility] NPRG [facility] [address] [place] [address] * (ABNORMAL) CBC without Differential (11/17/2023 7:24 AM CDT) Only the most recent of7 resultswithin the time period is included. Pathologist [facility] [place] Hemoglobin 9.5(L) 13.2 - 16.6 g/dL 11/17/2023 [...] ADD-ON [facility] [address] [place] [address], [place] MKTO [facility] in [place] [address] [place] [address] * (ABNORMAL) Basic Metabolic Panel (11/17/2023 7:24 AM CDT) Only the most recent of5 resultswithin the time period is included. [facility] Potassium, P 4.3 3.6 - 5.2 mmol/L [...] BLOOD ADD-ON [facility] [place] [address], [facility] in [place] [address] [place] [address] * Glucose, POCT (11/17/2023 6:45 AM CDT) Glucose, POCT, B 107 70 - 140 mg/dL 11/17/2023 6:45 AM CDT MKTO Blood 11/17/2023 6:45 AM CDT 11/17/2023 7:03 AM CDT Generic Rals LAB POCT ORDERABLES- MANUAL [facility] [address] [place] [address], [facility] MKTO [facility] in [place] [address] [place] [address] * (ABNORMAL) CBC with Differential, Blood (11/16/2023 [...] ADD-ON [facility] [address] [place] [address], [facility] MKTO [facility] [place] [address] [place] [address] * (ABNORMAL) Comprehensive Metabolic Panel (11/16/2023 6:25 [...] LAB BLOOD ADD-ON Performing Organization Address City/[facility]/ZIP Co de Phone Number [facility] [address] [place] [address] * Transfuse Red Blood Cells : (11/15/2023 6:35 PM CDT) Only the most recent of3 resultswithin the time period is included. Madelyn Cesar D.O. BLOOD TRANSFUSION OR DERABLES * Testing Location (11/15/2023 11:09 AM CDT) Testing Location [facility] DEFAULT 11/15/2023 11:47 AM CDT MKTO Blood 11/15/2023 11:0 9 AM CDT 11/15/2023 11:47 AM CDT Sergio Raza M.D. LAB BLOOD BANK TEST ORDERABLES [facility] [address] [place] [address], [place] [address] * Coccyx-Wound Ostomy Image Exam (11/15/2023 10:40 [...] RAD IMAGI NG PROCEDURES Performing Organization Address [facility] Co de Phone Number IIMS NA * ECG 12 Lead (11/15/2023 6:47 AM CDT) Ventricular Rate ECG/Min 65 BPM MUSE ID Interval 144 ms MUSE QRSD Interval 76 ms MUSE QT Interval 430 ms MUSE QTC Interval 447 ms MUSE P [place] -7 degrees MUSE R [place] 9 degrees MUSE T Wave [place] 19 degrees MUSE 11/15/2023 6:47 AM CDT [...] M.D. ECG ORD ERABLES Performing Organization Address [facility] Co de Phone Number MUSE NA * [...] to determine due to color interference Specific [place] SEE COMMENT 1.001 - 1.035 11/15/2023 8:03 AM CDT MKTO Comment:Unable to determine due to color interference Urobilinogen SEE COMMENT 0.2 - 1.0 mg/dL 11/15/2023 8:03 AM CDT MKTO Comment:Unable to determine due to color interference Urine (Urine, Midstream) 11/15/2023 6:25 AM CDT 11/15/2023 6:34 AM CDT Sylvie Wright M.D. LAB URI NE ORDERABLES [facility] [place] [address], [facility] MKTO [facility] [place] [address] * (ABNORMAL) Microscopic Automated (11/15/2023 6:25 AM [...] NE ORDERABLES [facility] [address] [place] [address], [place] [address] * Bacterial Culture, Aerobic + Susceptibility, Urine (11/15/2023 6:24 AM CDT) Only the most recent of2 resultswithin the time period is included. Urine Culture Urogenital microbiota, susceptibilities not performed per laboratory criteria. 11/16/2023 11:36 AM CDT MKTO Urine (Urine, Indwelling Catheter) 11/15/2023 6:24 AM CDT 11/15/2023 9:29 AM CDT Comment:Specimen Source Site : Urine Zachery Tanner APRN CJonahN.P., M.S. LAB MICROBIOLOGY - GENERAL ORDERABLES [facility] [address] [place] [address], [facility] MKTO [facility] [place] [address] [place] [address] * CT Abdomen Pelvis without IV Contrast [...] Hold Sample (11/14/2023 11:09 AM CDT) Pathologist [facility] Blood Bank Hold Sample HOLD Confirmed 11/14/2023 11:31 AM CDT NPRG Blood (Blood, Venous) 11/14/2023 11:09 AM CDT 11/14/2023 11:12 AM CDT Sergio Raza M.D. LAB BLOOD BANK TEST ORDERABLES [facility] [address] [place] [address], [facility] NPRG [facility] [address] [place] [address] * Type and Screen (with Reflex Antibody ID) (11/14/2023 11:09 AM CDT) Only the most recent of2 resultswithin the time period is included. Pathologist [facility] ABO Group O 11/15/2023 12:49 PM CDT NPRG Rh Type POS 11/15/2023 12:49 PM CDT NPRG Antibody Screen NEG 12:49 PM CDT NPRG Type & Screen Expiration 11/17/2023 23:59 11/15/2023 12:49 PM CDT NPRG ELXM Eligible Y 11/15/2023 12:49 PM CDT NPRG Blood 11/14/2023 11:0 9 AM CDT 11/15/2023 11:47 AM CDT Sergio Raza M.D. LAB BLOOD BANK TEST ORDERABLES [facility] [address] [place] [address], [facility] NPRG [facility] [address] [place] [address] * Heparin Anti-Xa Assay (09/14/2023 3:19 AM [...] BLOOD NON ADD-ON [facility] [address] [place] [address], [place] DTL [facility] [address] [place] [address] * IR Nephrostomy Tube Placement Left (09/13/2023 2:20 PM CDT) Anatomical Region Laterality Modality Genito Urinary, Vascular Int erventional RST LOS, Vascular Interventional ARZ LOS, Vascular Interventional FLA LOS Left X-Ray Angiography Impressions 09/13/2023 2:33 PM CDT Left 10 Lao percutaneous nephrostomy tube placement. EP Narrative 09/13/2023 [...] tract was further dilated and a 10 Lao nephrostomy tube was placed with loop formed [...] sedation timewas: 9 minutes. IMPRESSION: Left 10 [place] percutaneous nephrostomy tube placement. EP Latisha Whitehead M.D. [facility] [place] IR PROCEDURE S * Bacterial Culture, Aerobic + Susceptibility (09/13/2023 2:17 PM CDT) Bacterial Culture, Aerobic + Susc No growth after 5 days of incubation. 09/18/2023 12:35 PM CDT DTL Fluid (Kidney, Left) 09/13/2023 2:17 PM CDT 09/13/2023 3:56 PM CDT Comment:Specimen Source Site : Fluid Latisha Whitehead M.D. LAB MICROBIOLOGY - GENERAL ORDERABLES [facility] [address] [place] [address], [facility] [address] [place] [address] * Gram Stain (09/13/2023 2:17 PM CDT) Gram Stain No organisms seen. White blood cells, Rare 09/13/2023 9:02 PM CDT DT Fluid (Kidney, Left) 09/13/2023 2:17 PM CDT 09/13/2023 3:56 PM CDT Comment:Specimen Source Site : Fluid Latisha Whitehead M.D. LAB MICROBIOLOGY - GENERAL ORDERABLES Performing Organization Address City/[facility]/ZIP Co de Phone Number [facility] [address] [place] [address], [facility] [address] [place] [address] * Fungal Culture, Routine (09/13/2023 2:17 PM CDT) Fungal Culture, Routine No growth after 24 days of incubation. 10/08/2023 1:02 AM CDT DTL Fluid (Kidney, Left) 09/13/2023 2:17 PM CDT 09/13/2023 3:56 PM CDT Comment:Specimen Source Site : Fluid Latisha Whitehead M.D. LAB MICROBIOLOGY - GENERAL ORDERABLES [facility] [address] [place] [address], [facility] [address] [place] [address] * Bacterial Culture, Anaerobic + Susceptibility (09/13/2023 2:17 PM CDT) Bacterial Culture, Anaerobic + Susc No growth after 14 days of incubation. 09/27/2023 8:04 AM CDT DTL Fluid (Kidney, Left) 09/13/2023 2:17 PM CDT 09/13/2023 3:56 PM CDT Comment:Specimen Source Site : Fluid Latisha Whitehead M.D. LAB MICROBIOLOGY - GENERAL ORDERABLES Performing Organization Address [facility]/ZIP Co de Phone Number [facility] [address] [place], [place] [address] [place] [address] * APTT (Activated Partial Thromboplastin Time) (09/13/2023 5:56 AM CDT) Only the most recent of7 resultswithin the time period is included. Pathologist [facility] Activated Partial Thrombopl Time, P 35 25 - 37 sec 09/13/2023 7:14 AM CDT DT Blood (Blood, Venous) 09/13/2023 5:56 AM CDT 09/13/2023 6:53 AM CDT Sumit Holbrook M.D. LAB BLOOD ADD-ON Performing Organization Address City/[facility]/ZIP Co de Phone Number [facility] [address] [place] [address], [facility] [address] [place] [address] * NM Kidney DMSA (09/12/2023 12:21 PM [...] with severely reduced radiotracer uptake asdescribed. Js CHOUDHARY NM PROCEDURES * US Urinary Bladder (09/10/2023 [...] M.D. LAB URINE ORDERA BLES [facility] [address] [place] [address], [place] DTL [facility] [address] [place] [address] * (ABNORMAL) Dipstick, Urine (09/09/2023 11:28 AM [...] LAB URINE ORDERA BLES Performing Organization Address City/[facility]/ZIP Co de Phone Number [facility] [address] [facility] [address] [place] [address] * pH, Random, Urine (09/09/2023 11:28 AM CDT) pH, Random, U 6.3 4.5 - 8.0 09/09/2023 12:19 PM CDT DTL Urine 09/09/2023 11:2 8 AM CDT 09/09/2023 11:58 AM CDT Jeffery Church M.D. LAB URINE ORDERA BLES [facility] [address] [place] [address], [facility] [place] [address] * (ABNORMAL) Microscopic Manual (09/09/2023 11:28 AM [...] LAB URINE ORDERA SHELLY Performing Organization Address City/[facility] Co de Phone Number [facility] [address] [place] [address], [facility] [address] [place] [address] * (ABNORMAL) Gram Stain, Urine (09/09/2023 11:28 AM CDT) Source Urine, Urine, Straight Catheter 09/09/2023 11:58 AM CDT DTL Gram Stain, U Positive(A) Negative 09/09/2023 12:16 PM CDT DTL Comment: Few Gram-negative bacilli ? Yeast Urine 09/09/2023 11:2 8 AM CDT 09/09/2023 11:58 AM CDT Jeffery Church M.D. LAB URINE ORDERA SHELLY Performing Organization Address City/[facility]/ZIP Co de Phone Number [facility] [address] [place] [address], [facility] DTL [facility] [address] [place] [address] * (ABNORMAL) Urinalysis, with Microscopic: Urine, Straight [...] 09/09/2023 1:02 PM CDT DTL Predicted Range 2480-27682 mg/24 h 09/09/2023 1:02 PM CDT DTL Comment Micro done on <2.5 mL 09/09/2023 12:27 PM CDT DTL Urine (Urine, Straight Catheter) 09/09/2023 11:28 AM CDT 09/09/2023 11:58 AM CDT Jeffery Church M.D. LAB [facility]INE [facility] [address] [place] [address], [facility] DTL [facility] [address] [place] [address] * US Kidneys Bilateral with Bladder (09/09/2023 [...] Church M.D. LAB BLOOD ADD-ON [facility] [address] [place] [address], [place] [facility] [address] [place] [address] from Last 3 Months Advance Directives For more information, please contact: [phone] * Full Code (Latest Code Status on [...] Answer Comments Full Code: Discussed Care Teams Liquid Hydrogen Plant Operator Relationship Specialty Start Date End Date Elsewhere, Pcp PCP - General Internal Medicine 08/13/23
--- OUTSIDE RECORDS SUMMARY | 2023-12-08 12:50 | XMS_ITS | Encounter Summary ---
Author Organization [facility] Address [address] [place] [address] Care Team Providers Care Appeals Nurse Name Role Phone Elsewhere, Pcp Primary [...] has e electric, gas, oil, or water Project 2020 threatened to shut off services in your [...] CDT Nurse Only Department of Urology in [place], [place] [address] [place] [address] Burke Strauss M.D. [address] [place] [phone] Discharge Disposition: Home or Self Care documented [...] on filedocumented in this encounter Care Teams Appeals Nurse Relationship Specialty Start Date End Date Elsewhere, Pcp PCP - General Internal Medicine 08/13/23 documented as of this encounter
--- OUTSIDE RECORDS SUMMARY | 2023-12-08 12:51 | XMS_ITS | Encounter Summary ---
Author Organization [facility] Address [address] [place] [address] Care Team Providers Care City Detective Name Role Phone Elsewhere, Pcp Primary Care Provider Unavailabl e Encounter Details Date Type Department Care Team (Late st Contact Info) Description 10/27/2023 Clinical Communication Department of Urology in [place], [place] [address] [place] [phone] Burke Strauss M.D. [address] [place] [address] Social History Tobacco Use Types Packs/Day Years Used Date Smoking Tobacco: Never Smokeless Tobacco: Never [facility] Utilities Answer Date Recorded In the past 12 months has e electric, gas, oil, or water [employer] threatened to shut off services in [...] [facility] place to live 09/09/2023 Sex and Gender Information Value Date Recorded Sex Assigned at Not on file Gender Identity Not on file Sexual Orientation Not on file documented as of this encounter Miscellaneous Notes * Telephone Encounter - Gisela Llyod R.MJonahAJonah - 10/28/2023 1:21 PM CDT Patient [...] 2:15 PM CDT Patient follows urology in [place] but would like to transfer his care to [place] as it is closer to home. It looks like for Hematuria. Is this patient ok to see you? He has a catheter in and will need cath changes going forward. documented in this encounter Plan of Treatment Upcoming Encounters Date Type Department Care Team (Late st Contact Info) Description 12/13/2023 9:15 AM CDT Nurse Only Department of Urology in [place], [place] [address] [place] [phone] Burke Strauss M.D. [facility] [place] [phone] Discharge Disposition: Home or Self Care documented as of this encounter Visit Diagnoses Not on filedocumented in this encounter Care Teams City Detective Relationship Specialty Start Date End Date Elsewhere, Pcp PCP - General Internal Medicine 08/13/23 documented as of this encounter
--- OUTSIDE RECORDS SUMMARY | 2023-12-08 12:51 | XMS_ITS | Encounter Summary ---
Author Organization [facility] Address [address] [place] [address] Care Team Providers Care Casing Wringer Operator Name Role Phone Elsewhere, Pcp Primary Care Provider Unavailabl e Reason for Referral * Outpatient (Routine) - Closed Specialty Diagnoses / Procedures Referred By Leyla t Referred To Contact Urology Burke Strauss M.D. [address] [place] [phone] [facility] Referral ID Status Reason Start Date Expiration Date Visits Re quested Visits Authorized [id number] Closed 11/09/2023 05/10/2025 1 1 * Outpatient (Routine) - Authorized Specialty Diagnoses / Procedures Referred By Contaraceli t Referred To Contact Diagnoses Retention Urinary Chronic Procedures URO Urethral cath change (UCC) Burke Strauss M.D. [address] [place] [phone] [facility] Region Referral ID Status Reason Start Date Expiration Date V isits Requested Visits Authorized [id number] Authorized 11/09/2023 11/08/2024 15 15 Reason for Visit * Reason Comments Consult Discuss catheter thomas nges * Appointment Request (Routine) - Closed Specialty Diagnoses / Procedures Referred By Leyla rosenthal Referred To Contact Urology Referral ID Status Reason Start Date Expiration Date Visits Re quested Visits Authorized [id number] Closed 10/27/2023 10/26/2024 1 1 Encounter Details Date Type Department Care Team (Late st Contact Info) Description 11/09/2023 11:00 AM CDT Office Visit Department of Urology in [place], [place] [address] [place] [phone] Burke Strauss M.D. [address] [place] [phone] Primary Malignant Neoplasm Of Prostate (HCC) (Primary Dx); Retention Urinary Chronic; Hematuria Gross Discharge Disposition: Home or Self Care Social History Tobacco Use Types Packs/Day Years Used Date Smoking Tobacco: Never Smokeless Tobacco: Never [facility] [employer] Answer Date Recorded In the past 12 months has [facility] electric, gas, oil, or water [employer] threatened to shut off services in your [...] ILLNESS Patient presents to establish care from [facility]. He has multiple urologic issues [...] the past few days. Original plan from [place] was to exchange his left nephrostomy tube in 3 months, due 12/14/2023. He reports getting good output from the left neph tube without hematuria. His radiation cystitis, radiation proctitis and sacral ulcer currently being treated with hyperbaric oxygen therapy through the [facility] in [facility]. He has completed 19 of 45 planned treatments and expects to finish that course in early December. Metastatic prostate cancer is being managed by [facility], Dr. Mireya Tan. Release of [...] an antegrade nephrogram through Interventional Radiology in [place] prior to nephrostomy tube removal. documented in this encounter Plan of Treatment Upcoming Encounters Date Type Department Care Team (Late st Contact Info) Description 12/13/2023 9:15 AM CDT Nurse Only Department of Urology in [place], [place] [address] [place] [phone] Burke Strauss M.D. [address] [place] [phone] Discharge Disposition: Home or Self Care Scheduled [...] Gross documented in this encounter Care Teams Casing Wringer Operator Relationship Specialty Start Date End Date Elsewhere, Pcp PCP - General Internal Medicine 08/13/23 documented as of this encounter
--- OUTSIDE RECORDS SUMMARY | 2023-12-08 12:51 | XMS_ITS | Encounter Summary ---
Author Organization [facility] Address [address] [place] [address] Care Team Providers Care Gas Blender Name Role Phone Elsewhere, Pcp Primary Care Provider Unavailabl e Reason for Visit * Reason Onset Date Comments Oncology records request 11/10/2023 Encounter Details Date Type Department Care Team (Latest Contact Info) Description 11/10/2023 Clinical Communication Department of Urology in [place], [place] [address] [place] [phone] Burke Strauss M.D. [address] [place] [phone] Oncology records request Social History Tobacco Use Types Packs/Day Years Used Date Smoking Tobacco: Never Smokeless Tobacco: Never [facility] Utilities Answer Date Recorded In the [...] Information was filled out and faxed to [facility], Dr. Mireya Tan clinic per Dr. Strauss. Will wait for these to come through and notify Dr. Strauss for his review. [facility] documented in this encounter Plan of Treatment Upcoming Encounters Date Type Department Care Team (Late st Contact Info) Description 12/13/2023 9:15 AM CDT Nurse Only Department of Urology in [place], [place] [address] [place] [phone] Burke Strauss M.D. [address] [place] [phone] Discharge Disposition: Home or Self Care documented as of this encounter Visit Diagnoses Not on filedocumented in this encounter Care Teams Gas Blender Relationship Specialty Start Date End Date Elsewhere, Pcp PCP - General Internal Medicine 08/13/23 documented as of this encounter
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
--- OUTSIDE RECORDS SUMMARY | 2023-12-08 12:51 | XMS_ITS | Encounter Summary ---
Author Organization [facility] Address [address] [place] [phone] Care Team Providers Care Plate Put In Worker Name Role Phone Elsewhere, Pcp Primary Care Provider Unavailabl e Reason for Visit * Reason Comments Urinary Retention * Outpatient (Routine) - Closed Specialty Diagnoses / Procedures Referred By Contaraceli t Referred To Contact Diagnoses Hematuria Procedures URO Urethral cath change (UCC) Paula Hernandez M.D. [address] [place] [phone] [facility] Referral ID Status Reason Start Date Expiration Date Visits Re quested Visits Authorized [id number] Closed 09/15/2023 09/14/2024 1 1 Encounter Details Date Type Department Care Team (Late st Contact Info) Description 10/14/2023 1:00 PM CDT Procedure visit Department of Urology in [place], [place] [address] [place] [phone] Paula Hernandez M.D. [address] [place] [phone] Khadra Miller R.N. [address] [place] [phone] Hematuria Social History Tobacco Use Types Packs/Day [...] CDT Nurse Only Department of Urology in [place], [place] [address] [place] [phone] Burke Strauss M.D. [facility] [place] [phone] Discharge Disposition: Home or Self Care documented as of this encounter Visit Diagnoses Diagnosis Hematuria documented in this encounter Care Teams Plate Put In Worker Relationship Specialty Start Date End Date Elsewhere, Pcp PCP - General Internal Medicine 08/13/23 documented as of this encounter
--- OUTSIDE RECORDS SUMMARY | 2023-12-08 12:51 | XMS_ITS | Encounter Summary ---
Author Organization [facility] Address [address] [place] [address] Care Team Providers Care Orthodontist Vice President Name Role Phone Elsewhere, Pcp Primary Care Provider Unavailabl e Reason for Visit * Reason Comments Catheter Care Plan Encounter Details Date Type Department Care Team (Late st Contact Info) Description 10/14/2023 Documentation Department of Urology in [place], [place] [address] [place] [phone] Paula Hernandez M.D. [address] [place] [phone] Catheter Care Plan Social History Tobacco Use [...] Care Plan - Catheter Exchange General Information [facility]/ Patient Name: Kalen Vega Date: 1940 Health Care Provider(s) Medical Provider(s) Cesar Mccollum M.D. Institution: No address on file [place], [place] Urology Provider(s) Chief Urology residents Last seen by Palua Hernandez M.D. Institution: [facility] Treatment Summary Diagnosis Hydronephrosis; hematuria; metastatic prostate cancer; radiation cystitis Treatment Surgery []Yes [x] No Surgery Date(s) Surgical Procedure/Location/Findings Current Treatment Information/Follow-up Care Plan Frequency of Catheter Changes (i.e. every 4 weeks) every 4 weeks Catheter Information Type: Coude red rubber Size:20F Reference #: [id number] Catheter Prescription Expires NA Last seen by [...] CDT Nurse Only Department of Urology in [place], [place] [address] [place] [phone] Burke Strauss M.D. [address] [place] [phone] Discharge Disposition: Home or Self Care documented as of this encounter Visit Diagnoses Not on filedocumented in this encounter Care Teams Orthodontist Vice President Relationship Specialty Start Date End Date Elsewhere, Pcp PCP - General Internal Medicine 08/13/23 documented as of this encounter
--- OUTSIDE RECORDS SUMMARY | 2023-12-08 12:51 | XMS_ITS | Encounter Summary ---
Author Organization [facility] Address [address] [place] [address] Care Team Providers Care Biostatistics Manager Name Role Phone Elsewhere, Pcp Primary Care Provider Unavailabl e Encounter Details Date Type Department Care Team (Late st Contact Info) Description 11/09/2023 Clinical Communication Department of Urology in [place], [place] [address] [place] [phone] Burke Strauss M.D. [address] [place] [phone] Social History Tobacco Use Types Packs/Day Years [...] a [facility] 09/09/2023 Sex and [...] CDT Nurse Only Department of Urology in [place], [place] [address] [place] [phone] Burke Strauss M.D. [address] [place] [phone] Discharge Disposition: Home or Self Care documented as of this encounter Visit Diagnoses Not on filedocumented in this encounter Care Teams Biostatistics Manager Relationship Specialty Start Date End Date Elsewhere, Pcp PCP - General Internal Medicine 08/13/23 documented as of this encounter
--- OUTSIDE RECORDS SUMMARY | 2023-12-08 12:51 | XMS_ITS | Encounter Summary ---
Author Organization [facility] Address [address] [place] [address] Care Team Providers Care Coat Joiner Name Role Phone Elsewhere, Pcp Primary Care Provider Unavailabl e Encounter Details Date Type Department Care Team (Late st Contact Info) Description 09/21/2023 Clinical Communication Department of Urology in [place], [place] [address] [place] [phone] Paula Hernandez M.D. [address] [place] [phone] Social History Tobacco Use Types Packs/Day Years Used Date Smoking Tobacco: Never Smokeless Tobacco: Never [facility] Utilities Answer Date Recorded In the past [address] [facility] [employer], gas, oil, or water [employer] threatened to shut off services in your [...] 2:37 PM CDT I called the patient's [place] physician who he saw yesterday, 09/19 in [...] CDT Nurse Only Department of Urology in [place], [place] [address] [place] [phone] Burke Strauss M.D. [address] [place] [phone] Discharge Disposition: Home or Self Care documented as of this encounter Visit Diagnoses Not on filedocumented in this encounter Care Teams Coat Joiner Relationship Specialty Start Date End Date Elsewhere, Pcp PCP - General Internal Medicine 08/13/23 documented as of this encounter
--- OUTSIDE RECORDS SUMMARY | 2023-12-08 12:51 | XMS_ITS | Encounter Summary ---
Author Organization [facility] Address [address] [place] [address] Care Team Providers Care Animal Care Attendant Name Role Phone Elsewhere, Pcp Primary Care Provider Unavailabl e Reason for Referral * Outpatient (Routine) - Authorized Specialty Diagnoses / Procedures Referred By Contac t Referred To Contact Diagnoses Hematuria Gross Procedures DX Chest AP or PA and Lateral 2 Views Paula Hernandez M.D. [address] [place] [phone] [facility] Referral ID Status Reason Start Date Expiration Date V isits Requested Visits Authorized [id number] Authorized 09/16/2023 09/15/2024 1 1 Encounter Details Date Type Department Care Team (Late st Contact Info) Description 09/16/2023 Orders Only Department of Urology in [place], [place] [address] [place] [phone] Paula Hernandez M.D. [address] [place] [phone] Hematuria Gross (Primary Dx) Social History Tobacco [...] your living situation today? [facility] 09/09/2023 Sex and Gender Information Value Date Recorded Sex Assigned at Not on file Gender Identity Not on file Sexual Orientation Not on file documented as of this encounter Plan of Treatment Upcoming Encounters Date Type Department Care Team (Late st Contact Info) Description 12/13/2023 9:15 AM CDT Nurse Only Department of Urology in [place], [place] [address] [place] [phone] Burke Strauss M.D. [facility] [place] [phone] Discharge Disposition: Home or Self Care Scheduled [...] documented as of this encounter Care Teams Animal Care Attendant Relationship Specialty Start Date End Date Elsewhere, Pcp PCP - General Internal Medicine 08/13/23 documented as of this encounter
--- OUTSIDE RECORDS SUMMARY | 2023-12-08 12:51 | XMS_ITS | Encounter Summary ---
Author Organization [facility] Address [address] [place] [address] Care Team Providers Care Hosted Services Analyst Name Role Phone Elsewhere, Pcp Primary Care Provider Unavailabl e Reason for Visit * Reason Onset Date Comments follow up questions 09/16/2023 Encounter Details Date Type Department Care Team (Latest Contact Info) Description 09/16/2023 Clinical Communication Department of Urology in [place], [place] [address] [place] [phone] Provider, Unknown follow up questions Social History Tobacco Use Types Packs/Day Years Used Date Smoking Tobacco: Never Smokeless Tobacco: Never [facility] Utilities Answer Date Recorded In the past 12 months has [facility], gas, oil, or water [employer] threatened to shut off services in your [...] your living situation today? I have a [facility] place to live 09/09/2023 Sex [...] CDT Nurse Only Department of Urology in [place], [place] [address] [place] [phone] Burke Strauss M.D. 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
--- OUTSIDE RECORDS SUMMARY | 2023-12-08 12:51 | XMS_ITS | Encounter Summary ---
Author Organization [facility] Address [address] [place] [address] Care Team Providers Care Superintendent Distribution Name Role Phone Elsewhere, Pcp Primary Care Provider Unavailabl e Reason for Referral * Outpatient (Routine) - Authorized Specialty Diagnoses / Procedures Referred By Contaraceli t Referred To Contact Urology Diagnoses Hematuria Paula Benton M.D. [address] [place] [phone] [facility] Referral ID Status Reason Start Date Expiration Date V isits Requested Visits Authorized [id number] Authorized 09/15/2023 03/16/2025 1 1 Encounter Details Date Type Department Care Team (Late st Contact Info) Description 09/15/2023 Clinical Communication [facility] [address] [place] [phone] Yasmine Loco Social History Tobacco Use Types [...] CDT Nurse Only Department of Urology in [place], [place] [address] [place] [phone] Burke Strauss M.D. [facility] [place] [phone] Discharge Disposition: Home or Self [...] documented as of this encounter Care Teams Superintendent Distribution Relationship Specialty Start Date End Date Elsewhere, Pcp PCP - General Internal Medicine 08/13/23 documented as of this encounter
--- OUTSIDE RECORDS SUMMARY | 2023-12-08 12:51 | XMS_ITS | Encounter Summary ---
Author Organization [facility] Address [address] [place] [address] Care Team Providers Care Aerial Advertiser Name Role Phone Elsewhere, Pcp Primary Care Provider Unavailabl e Encounter Details Date Type Department Care Team (Late st Contact Info) Description 09/27/2023 Clinical Communication Department of Urology in [place], [place] [address] [place] [phone] Paula Hernandez M.D. [address] [place] [phone] Social History Tobacco Use Types Packs/Day Years Used Date Smoking Tobacco: Never Smokeless Tobacco: Never [facility] Utilities Answer Date Recorded In the past 12 months has [facility] electric, gas, oil, or water [employer] threatened to shut off services in your [...] your living situation today? I have a [facility] place to live 09/09/2023 Sex [...] CDT Nurse Only Department of Urology in [place] [address] [place] [address] Burke Strauss M.D. [address] [place] [phone] Discharge Disposition: Home or Self Care documented as of this encounter Visit Diagnoses Not on filedocumented in this encounter Care Teams Aerial Advertiser Relationship Specialty Start Date End Date Elsewhere, Pcp PCP - General Internal Medicine 08/13/23 documented as of this encounter
--- OUTSIDE RECORDS SUMMARY | 2023-12-08 12:52 | XMS_ITS | Encounter Summary ---
Author Organization [facility] Address [address] [place] [address] Care Team Providers Care Billboard Installer Name Role Phone Elsewhere, Pcp Primary Care Provider Unavailabl e Reason for Visit * Reason Comments Urinary Problem Rapid Heart Rate Encounter Details Date Type Department Care Team (Latest Contact Info) Description 08/30/2023 7:35 PM CDT - 09/05/2023 4:09 PM CDT Hospital Encounter [facility], [facility], [facility], First Floor [address] [place] [address] Kirstin Hughes M.D. [address] [place] [phone] Mayur Alvarez M.D. [address] [place] [phone] Hematuria (Primary Dx); Tachycardia; Hematuria Gross Discharge [...] have a [facility] to [facility] 09/05/2023 Sex and Gender [...] CDT DISCHARGE SUMMARY BRIEF OVERVIEW Hospital: [facility] Discharge Provider: Mayur Alvarez M.D. [...] CENTER ROMB OR DISCHARGE DISPOSITION Home-Health Care [facility] [6] ACTIVE ISSUES REQUIRING FOLLOW UP OUTPATIENT [...] CONSULT TO CARE MANAGEMENT IP CONSULT TO PATTERN CHAIN BUILDER WOUND CARE IP CONSULT TO HYPERBARIC MEDICINE CONDITION AT DISCHARGE improved Discharge instructions were provided to the patient and caregiver(s). documented in this encounter Discharge Instructions * Patient Instructions* Carmen Louis, R.N. - 08/31/2023 9:44 AM CDT The Senior LinkAge Line?? is a service of the [place] Board on Aging in partnership with [place] Agencies on Aging. It is a free service of the [facility] that connects older [place]ans and their families with the help they need. Call the Senior LinkAge Line?? at: 725.336.4788 M-F, 8am-4:30pm to connect with specialists that are available to assist you with your specific needsor check out their website at [email or web address] * Attachments The following attachments cannot be sent through Care Everywhere. * Cefdinir (By mouth) (Slovenian) documented in this encounter Medications at Time [...] to catheter removal 20 tablet 08/26/2023 11/30/2023 bacitracin 500 unit/gram ointment Apply 1 Application [...] during business hours: [phone] Pager after hours: [phone] * Jeffery Valdez M.D. - 09/04/2023 10:34 [...] questions or concerns. Pager during business hours: [phone] Pager after hours: [phone] * Jeffery Valdez M.D. - 09/03/2023 4:10 [...] consider [facility]ing [facility]: Diet: Regular Activity: Ad [...] questions or concerns. Pager during business hours: [phone] Pager after hours: [phone] * Paula Hernandez M.D. - 09/02/2023 6:25 [...] questions or concerns. Pager during business hours: [phone] Pager after hours: [phone] * Michelle Willams R.N., C.W.C.N. - 09/01/2023 11:43 AM CDT [facility] Wound RN [...] Secondary Dressing Status Clean;Dry;Intact Changed by Wound meatman Ongoing management Nursing;Wound/executive secretary social welfare Urine Assessment Urine Color Colorless Hematuria Scale Charles Mix Urine Appearance Clear;Sediment Head to toe skin [...] update the patient. Son stated that a Manager Of Change visited the home and will be trying to assist both and patient with cares/coordination. OBJECTIVE Patient is located on [facility] room 111. Referrals were sent to the following agencies: Home Medical Care - Admitted Since 08/30/2023 Service Provider Request Status Selected Services Address Phone Fax Patient Preferred [facility] - [place] Pending - Request Sent N/A [address] [facility] [address] [phone] -- [facility] - Home Care Pending - Request Sent N/A [address] [facility] [address], [facility] [address] [phone] -- Home Health Care Pending - Request Sent N/A [address] [facility] [address] [address] [phone] -- [facility] Pending - Request Sent N/A [address] [facility] [phone] -- [facility] Pending - Request Sent N/A [address] [facility] [phone] -- [facility] Pending - Request Sent N/A [address] [facility] [address], [facility] [address] [phone] -- [facility] Home Health Declined Facility Full N/A [address] [facility] [phone] -- ASSESSMENT / PLAN ASSESSMENT Firebreak Cutter attempted to contact patient on room phone but was unable to get through. Case Manageras able to reach his son who will update that patient that the preferred home health agency was unable to accept and that referrals would be sent to other home health agencies. Requested services arenursing for wound care and catheter and PT/OT. PLAN Firebreak Cutter will follow up with referrals. Case Manger [...] questions or concerns. Pager during business hours: [phone] Pager after hours: [phone] * Paula Hernandez M.D. - 08/31/2023 10:45 [...] risks associated with surgery and anesthesia including VT, stroke, and VTE were also discussed. Finally, [...] questions or concerns. Pager during business hours: [phone] Pager after hours: [phone] Associated attestation - Mayur Alvarez M.D. - 08/31/2023 12:14 PM CDT I agree with the Urology Chief Service plan for palliative cystoscopy under anesthesia, clot evacuation, proceed as indicated. We will plan for judicious irrigation given his recent bladder surgery and we will perform a cystogram at the end of the procedure. * Demarco Salazar, Mireille.D., R.Ph., [facility] - 08/31/2023 7:19 AM CDT Images [...] discontinuation of antibiotics. Pedrito Salazar Pharm.D., R.Ph., [facility] Admission Medication History Note Adherence issues: [...] Complete Set By: Demarco Salazar Pharm.D., R.Ph., [facility] at 08/31/2023 7:22 AM Taking? Last [...] an 83 y.o. male transferred to the [facility] ED for further management of [...] for CBI. He was then transferred to [facility] on 08/12; a CT cystogram [...] was initiated on CBI and transferred to [facility] for further management. On my [...] for radiation proctitis SOCIAL HISTORY Lives in [place], [place] OBJECTIVE Vitals Blood pressure 134/84, pulse [...] hematuria, clot obstruction and was transferred to [facility] for further evaluation and management. Urinary bladder ultrasound showing 5 cm clot burden; catheter draining on fast-rate CBI after multiple rounds of hand irrigation. Plan - Continue CBI - Q2h hr hand irrigations - NPO overnight pending am re-evaluation - Hold Plavix, Xarelto for now The above was discussed with Drs. Venegas and Lefty, the chief urology residents carton packaging machine operator. Please page chief Urology [place] [phone] [place] [phone] afterhours. documented in this encounter Procedure Notes [...] androgen deprivation therapy. 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. No scuba diving experience. Electronic [...] 11 Referral Reason: Discharge Planning Primary Language: Slovenian Pit Operator Services Used: No Person(s) present during [...] Communication: Can write, Talks, Understands speaking, Understands Slovenian, Reads Shopping: Needs assistance Medication Management: Independent Housekeeping: Needs assistance Meal Prep: Independent Assistive Devices: Walker - front wheeled, Eyeglasses, Hearing aid(s) [facility] Provided: [facility]/PT/OT Transportation: Support from family Baseline Services/Resources Primary care clinic and provider: ELSEWHERE, PCP Additional Resources: N/A Anticipated Needs Functional Status: Housekeeping, Shopping, Transportation use (drive car, use taxi/bus), Mobility, Transfer to/from bed, chair, etc., Bathing Assistive Devices: Eyeglasses, Hearing aid(s), Walker - front wheeled Services/Resources: Home health Agency Name: [facility] Provided: [facility]/PT/OT Anticipated Modifications to the Patient's Home: None Transportation Needs: Support from family Does the patient need discharge transport arranged?: No Anticipated Discharge Destination: Home-Health Care [facility] ASSESSMENT / PLAN Assessment: The associate director career services met with Kalen Srinivasan Gary to discuss his current hospitalization and home goingneeds. The patient was accompanied by son, Kar . The patient was a reliable historian. The role ofRN Firebreak Cutter was reviewed. The patient reviewed his prior level of care and support system. The patient receives support from his and children. The patient described his living environment as a home with bedroom and bathroom on same floor withstairs to enter with rails. Housekeeping, grocery shopping, meal prep, and other household responsibilities have previously been completed by patient and patient's son. associate director career services discussed the patient's potential needs at dismissal based on their home setting, previous needs and responsibilities, homebound status, and relevant assessments with the patient. The patient will be safe and supported to return home with [facility] or previous services noted above when medically [...] [facility] care. Patient stated that [employer] was supposed to be set- up at discharge after the last hospital stay but that the company never received orders to start care and that he was told by nursing that due to his PICC removal he would not need care. Firebreak Cutter will clarifywith home health team regarding if [...] chart and meeting with the patient, the associate director career services deemed the LACE+/readmission questions were appropriate. The [...] current readmission could have been prevented. The associate director career services will share this information with the care team. The patient reports understanding that he will dismiss from the hospital when medically stable. Thefollowing potential barriers to dismissal have been identified: Home Health Care Addendum 1230: Firebreak Cutter called [facility]. They received the referral but declined due to being at capacity. Plan: The patient agrees with the following plan. Patient's anticipated discharge disposition is: Home with Home Healthcare Referrals sent. Transportation upon dismissal will be provided by family--Kar . associate director career services recommended home health services. associate director career services provided information regarding the dismissal process and the Senior Linkage Line ([place] Board on Aging) handout. associate director career services placed or requested the following hospital-based consult orders and/or referrals: None. associate director career services will follow up with the patient to [...] with updates and/or transition plan to come. associate director career services encouraged the patient to reach out with [...] CDT Pre-op Diagnosis Hematuria Post-op Diagnosis Hematuria Aluminum Boat Inspector A dental front office assistant actively participated and was necessary for [...] or filling defects. 5. Placement of [address] catheter with 20 cc in [...] The resectoscope was removed and a [address] catheter was placed with 20 [...] secondary to cystostomy closure presenting today from [facility] with concerns for worsening hematuria. He was [...] 08/30/2023 8:48 AM CDT Pt transferred from [facility] via EMS, pt c/o blocked jon cath that started today. Pt had a right uretal stent exchange and an open bladder repair 08/15/23 and was discharged 08/25. Pt had a3 way jon placed at [facility], and transferred here because the clots returned. [...] RN, CPN, CCDS, CCS, CRC Clinical Documentation Electrical Power Station Technician Query created by: ELMER Barker, RN, [...] CDT Nurse Only Department of Urology in [place], [place] [address] [place] [phone] Burke Strauss M.D. [address] [place] [address] Discharge Disposition: Home or Self Care Pending [...] CDT Roxy Romero M.D. LAB BLOOD ADD-ON [facility] 200 [place], [place] [phone] [place] [address] 200 [place] [address] * (ABNORMAL) Basic Metabolic Panel (09/05/2023 4:52 [...] Jakob De Paz M.D. LAB BLOOD ADD-ON [facility] 200 [place] [address], [facility] 200 [place] [address] * (ABNORMAL) Basic Metabolic Panel (09/04/2023 8:15 [...] CDT Jeffery Valdez M.D. LAB BLOOD ADD-ON [facility] [address] [place] [address], [facility] [address] [place] [address] * (ABNORMAL) CBC without Differential (09/04/2023 8:15 [...] CDT Jeffery Valdez M.D. LAB BLOOD ADD-ON [facility] [address] [place] [address], [facility] 200 [place] [address] * Transfuse Red Blood Cells : (09/04/2023 [...] 09/04/2023 11:46 AM CDT STRM Testing Location [place] DEFAULT 09/04/2023 11:21 AM CDT STRM Blood (Blood, Venous) 09/04/2023 10:59 AM CDT 09/04/2023 11:21 AM CDT Jeffery Valdez M.D. LAB BLOOD BANK TEST ORDERABLES Performing Organization Address [facility]/ZIP Co de Phone Number [facility] 200 [place] [address], [facility] [address] [address] * Heparin Anti-Xa Assay (09/04/2023 7:34 AM [...] A DD-ON Performing Organization Address City/[facility]/ZIP Co de Phone Number [facility] 200 [place] [address], [facility] 200 [place] [address] * (ABNORMAL) CBC without Differential (09/04/2023 7:34 [...] ADD-ON [facility] [address] [place] [address], [facility] [address] [place] [address] * Heparin Anti-Xa Assay (09/04/2023 12:30 AM [...] A DD-ON Performing Organization Address City/[facility]/ZIP Co de Phone Number [facility] 200 [place] [address] * Bacterial Culture, Aerobic + Susceptibility, Urine (09/03/2023 10:50 AM CDT) Pathologist [facility] Urine Culture No growth after 1 day of incubation. 09/04/2023 8:52 AM CDT DTL Urine (Urine, Indwelling Catheter) 09/03/2023 10:50 AM CDT 09/03/2023 11:53 AM CDT Comment:Specimen Source Site : Urine Jeffery Valdez M.D. LAB MICROBIOLOGY - G ENERAL ORDERABLES Performing Organization Address [facility]/ZIP Co de Phone Number [facility] 200 [place] [address] * (ABNORMAL) CBC without Differential (09/03/2023 3:29 [...] Performing Organization Address [facility] Co de Phone Number [facility] 200 [place] [address], [facility] 200 [place] [address] * Heparin Anti-Xa Assay (09/03/2023 3:29 AM [...] A DD-ON Performing Organization Address City/[facility] Co de Phone Number [facility] 200 [place] [address], [facility] 200 [place] [address] * Heparin Anti-Xa Assay (09/02/2023 2:57 AM [...] Alvarez M.D. LAB BLOOD NON A DD-ON [address] [address], [facility] [address] [address] * (ABNORMAL) CBC without Differential (09/01/2023 8:16 PM CDT) [facility] Hemoglobin 8.5(L) 13.2 - 16.6 [...] BLOOD ADD-ON Performing Organization Address City/[facility]/ZIP Co de Phone Number [facility] 200 [place] [address], [facility] 200 [place] [address] * Heparin Anti-Xa Assay (09/01/2023 6:50 PM [...] BLOOD NON A DD-ON Performing Organization Address [facility] Co de Phone Number [facility] [address] [place] [address], [facility] 200 [place] [address] * APTT (Activated Partial Thromboplastin Time) (09/01/2023 9:05 AM CDT) Activated Partial Thrombopl Time, P 28 25 - 37 sec 09/01/2023 9:35 AM CDT STMA Blood (Blood, Venous) 09/01/2023 9:05 AM CDT 09/01/2023 9:21 AM CDT Paula Hernandez M.D. LAB BLOOD ADD-ON [facility] [address] [place] [address], [facility] STMA [facility] [address] [place] [address] * (ABNORMAL) Basic Metabolic Panel (08/31/2023 9:36 PM CDT) Pathologist [facility] Potassium, S 4.0 3.6 - 5.2 [...] [facility] [address] [place] [address], [facility] DTL [facility] [address] [place] [address] * (ABNORMAL) CBC without Differential (08/31/2023 9:36 [...] BLOOD ADD-ON Performing Organization Address City/[facility]/ZIP Co de Phone Number [address] [address], [facility] [address] [address] * [place] Fluoro Less Than 1 Hour (08/31/2023 2:12 PM CDT) Narrative 152 HOS LOS RST - 08/31/2023 2:13 PM CDT This exam does not require a radiologist review or interpretation. Please refer to the patient's medical record on this date for clinical details. Mayur Alvarez M.D. IMG FLUOROSCOPY PROCEDURES Performing Organization Address City/[facility]/ZIP Co de Phone Number 152 HOS LOS [...] * (ABNORMAL) Hemoglobin (08/31/2023 4:21 AM CDT) [facility] Hemoglobin 7.8(L) 13.2 - 16.6 g/dL 08/31/2023 4:47 AM CDT DTL Blood (Blood, Venous) 08/31/2023 4:21 AM CDT 08/31/2023 4:35 AM CDT Kimi Vieira M.D., M.S. LAB BLOO D ADD-ON Performing Organization Address City/[facility] Co de Phone Number [facility] [address] DTL [facility] [address] [place] [address] * Type and Screen (with Reflex Antibody ID) (08/30/2023 9:50 PM CDT) [facility] ABORh O Pos Not applicable [...] TEST ORDERABLES Performing Organization Address [facility] Co de Phone Number [facility] [address] STRM [facility] [address] [place] [address] * Lactate (08/30/2023 9:50 PM CDT) Lactate, P 1.8 0.5 - 2.2 mmol/L 08/30/2023 10:09 PM CDT STMA Blood (Blood, Venous) 08/30/2023 9:50 PM CDT 08/30/2023 9:55 PM CDT Narrative Authorizing Provider Result Abdifatah Correa D.O., M.H.A. LAB BLOOD NON ADD-ON [facility] [address] [place] [address], [facility] STMA [facility] [address] [place] [address] * (ABNORMAL) Basic Metabolic Panel (08/30/2023 9:49 [...] Correa D.O. M.H.A. LAB BLOOD ADD- ON [facility] [address] [place] [address], [facility] STMA [facility] [address] [place] [address] * (ABNORMAL) CBC with Differential, Blood (08/30/2023 [...] Correa D.O., M.H.A. LAB BLOOD ADD- ON [facility] [address] [place] [address], [facility] STMA [facility] [address] [place] [address] * DX Chest AP or PA and [...] CDT) Ventricular Rate ECG/Min 145 BPM MUSE IL Interval 136 ms MUSE QRSD Interval 64 ms MUSE QT Interval 260 ms MUSE QTC Interval 403 ms MUSE P Wendell 44 degrees MUSE R Wendell 9 degrees MUSE T Wave Wendell -76 degrees MUSE 08/30/2023 7:44 PM CDT [...] give total of 40 mEq Dissolve per occupational health nurse supervisor recommendations. Do NOT chew or swallow tablet., [...] 0900 (Not Given - Provider: Sarah Morgan RJonhaNJonah - Reason: See Provider Order)4002 (Unheld by provider - Provider: Jeffery Valdez [...] give total of 40 mEq Dissolve per occupational health nurse supervisor recommendations. Do NOT chew or swallow tablet., [...] Dillard R.N.)0938 (Stopped - Provider: Joy Jackson RNarendra) NaCl 0.9 % irrigation solution 3,000 mL [...] PRN, catheter irritaiton, Starting on Tue08/30/23 at 223, Apply to tip of penis as needed [...] 2256 documented in this encounter Care Teams Billboard Installer Relationship Specialty Start Date End Date Elsewhere, Pcp PCP - General Internal Medicine 08/13/23 documented as of this encounter
--- OUTSIDE RECORDS SUMMARY | 2023-12-08 12:52 | XMS_ITS | Encounter Summary ---
Author Organization [facility] Address [address] [place] [address] Care Team Providers Care Supervisor Matrix Name Role Phone Elsewhere, Pcp Primary Care Provider Unavailabl e Encounter Details Date Type Department Care Team (Late st Contact Info) Description 09/06/2023 Clinical Communication [facility] [address] [place] [address] Yasmine Loco Social History Tobacco Use Types Packs/Day Years Used Date Smoking Tobacco: Never Smokeless Tobacco: Never C Utilities Answer Date Recorded In the past 12 months has [facility] [employer], gas, oil, or water [employer] threatened to shut off services in your [...] your living situation today? I have a [facility] place to live 09/09/2023 Sex and Gender Information Value Date Recorded Sex Assigned at Not on file Gender Identity Not on file Sexual Orientation Not on file documented as of this encounter Plan of Treatment Upcoming Encounters Date Type Department Care Team (Late st Contact Info) Description 12/13/2023 9:15 AM CDT Nurse Only Department of Urology in [place], [place] [address] [place] [address] Burke Strauss M.D. [facility] [place] [phone] Discharge Disposition: Home or Self Care documented as of this encounter Visit Diagnoses Diagnosis Hematuria Gross- Primary documented in this encounter Care Teams Supervisor Matrix Relationship Specialty Start Date End Date Elsewhere, Pcp PCP - General Internal Medicine 08/13/23 documented as of this encounter
--- OUTSIDE RECORDS SUMMARY | 2023-12-08 12:52 | XMS_ITS | Encounter Summary ---
Author Organization [facility] Address [address] [place] [address] Care Team Providers Care Postal Inspector Name Role Phone Elsewhere, Pcp Primary [...] has e electric, gas, oil, or water [employer] threatened to shut off services in [...] your living situation today? I have a [facility] place to live 09/09/2023 Sex and Gender Information Value Date Recorded Sex Assigned at Not on file Gender Identity Not on file Sexual Orientation Not on file documented as of this encounter Plan of Treatment Upcoming Encounters Date Type Department Care Team (Late st Contact Info) Description 12/13/2023 9:15 AM CDT Nurse Only Department of Urology in [place], [place] [address] [place] [address] Burke Strauss M.D. [address] [place] [address] Discharge Disposition: Home or Self Care documented [...] on filedocumented in this encounter Care Teams Postal Inspector Relationship Specialty Start Date End Date Elsewhere, Pcp PCP - General Internal Medicine 08/13/23 documented as of this encounter
--- OUTSIDE RECORDS SUMMARY | 2023-12-08 12:52 | XMS_ITS | Encounter Summary ---
Author Organization [facility] Address [address] [place] [address] Care Team Providers Care Clock And Watch Hands Painter Name Role Phone Elsewhere, Pcp Primary Care [...] has e electric, gas, oil, or water [employer] threatened to shut off services in your [...] CDT Nurse Only Department of Urology in [place], [place] [address] [place] [phone] Burke Strauss M.D. [address] [place] [phone] Discharge Disposition: Home or Self Care documented [...] on filedocumented in this encounter Care Teams Clock And Watch Hands Painter Relationship Specialty Start Date End Date Elsewhere, Pcp PCP - General Internal Medicine 08/13/23 documented as of this encounter
--- OUTSIDE RECORDS SUMMARY | 2023-12-08 12:52 | XMS_ITS | Encounter Summary ---
Author Organization [facility] Address [address] [place] [address] Care Team Providers Care Fire Ranger Name Role Phone Elsewhere, Pcp Primary Care Provider Unavailabl e Encounter Details Date Type Department Care Team (Late st Contact Info) Description 09/09/2023 Documentation Department of Urology in [place], [place] [address] [place] [phone] Ko Victoria M.D. [address] [place] [address] Social History Tobacco Use Types Packs/Day Years Used Date Smoking Tobacco: Never Smokeless Tobacco: Never [facility] Utilities Answer Date Recorded In the past 12 months has [facility] electric, gas, oil, or water [employer] threatened to shut off services in your [...] [facility] place to live 09/09/2023 Sex [...] CDT Nurse Only Department of Urology in [place], [place] [address] [place] [phone] Burke Strauss M.D. [address] [place] [phone] Discharge Disposition: Home or Self Care documented as of this encounter Visit Diagnoses Not on filedocumented in this encounter Care Teams Fire Ranger Relationship Specialty Start Date End Date Elsewhere, Pcp PCP - General Internal Medicine 08/13/23 documented as of this encounter
--- OUTSIDE RECORDS SUMMARY | 2023-12-08 12:52 | XMS_ITS | Encounter Summary ---
Author Organization [facility] Address [address] [place] [address] Care Team Providers Care Collator Operator Name Role Phone Elsewhere, Pcp Primary Care Provider Unavailabl e Encounter Details Date Type Department Care Team (Late st Contact Info) Description 08/31/2023 12:34 PM CDT Anesthesia Event RST ROMB MAIN OR [address] [place] [phone] Joe Stoll M.D. [address] [place] [phone] Benjamin Williamson APRN, VASCULAR ULTRASOUND TECHNICIAN [address] [place] [phone] Anesthesia Record Procedure Summary Procedure Name Responsible [...] GAVIN 08/31/23 1402 by Benjamin Williamson APRN, VASCULAR ULTRASOUND TECHNICIAN Indwelling Urinary Catheter Placement Date: 08/31/23; Placement Time: 1359; Inserted by: Siddhartha Venegas MD; Size: 24 Fr.; Balloon Size: (20 ml fill saline); Removal Date: 08/31/23; Removal Time: 1403 08/31/23 1359 by Jacqui Mehta R.N. 08/31/23 1403 by Jacuqi Mehta R.N. (RETIRED) Bladder Irrigation 08/31/23; 1403; Siddhartha Venegas MD; Stopped (DC'd CBI); Three-way; 24 Fr; 30 mL (20 ml fill saline); Yes; 09/03/23; 1103; Per order 08/31/23 1403 by Jacqui Mehta R.NJonah 09/03/23 1103 by Sarah Morgan RJonahN. documented in this encounter Social History Tobacco Use Types Packs/Day Years Used Date Smoking Tobacco: Never Smokeless Tobacco: Never [employer] Utilities Answer Date Recorded In the past 12 months has [facility] [employer], gas, oil, or water [employer] threatened to shut off services in your [...] [facility] place to live 08/13/2023 Sex and Gender Information Value Date Recorded Sex Assigned at Not on file Gender Identity Not on file Sexual Orientation Not on file documented as of this encounter OR Notes * Anesthesia Postprocedure Evaluation - Joe Stoll M.D. - 08/31/2023 5:27 PM CDT Patient: Kalen Vega Procedure Summary Date: 08/31/23 Room / Location: [address] [facility] in [place], [place] Anesthesia Start: 1234 Anesthesia Stop: 1420 [...] Hematuria [R31.9] Pre-op diagnosis: Hematuria [R31.9] Location: [address] [facility] in [place], [place] Providers: Mayur Alvarez M.D. Pertinent components [...] patient / legal guardian, or through an kettle coordinator; patient evaluated and approved for anesthesia [...] CDT Nurse Only Department of Urology in [place], [place] [address] [place] [phone] Burke Strauss M.D. [address] [place] [phone] Discharge Disposition: Home or Self Care documented [...] mg documented in this encounter Care Teams Collator Operator Relationship Specialty Start Date End Date Elsewhere, Pcp PCP - General Internal Medicine 08/13/23 documented as of this encounter
--- OUTSIDE RECORDS SUMMARY | 2023-12-08 12:52 | XMS_ITS | Encounter Summary ---
Author Organization [facility] Address [address] [place] [address] Care Team Providers Care Clinical Research Technician Name Role Phone Elsewhere, Pcp Primary [...] has e electric, gas, oil, or water [employer] threatened to shut off services in your [...] [facility] live 08/13/2023 Sex and Gender Information Value Date Recorded Sex Assigned at Not on file Gender Identity Not on file Sexual Orientation Not on file documented as of this encounter Plan of Treatment Upcoming Encounters Date Type Department Care Team (Late st Contact Info) Description 12/13/2023 9:15 AM CDT Nurse Only Department of Urology in [place], [place] [address] [place] [phone] Burke Strauss M.D. [address] [place] [phone] Discharge Disposition: Home or Self Care documented [...] on filedocumented in this encounter Care Teams Clinical Research Technician Relationship Specialty Start Date End Date Elsewhere, Pcp PCP - General Internal Medicine 08/13/23 documented as of this encounter
--- OUTSIDE RECORDS SUMMARY | 2023-12-08 12:52 | XMS_ITS | Encounter Summary ---
Author Organization [facility] Address [address] [place] [address] Care Team Providers Care Statuary Painter Name Role Phone Elsewhere, Pcp Primary Care Provider Unavailabl e Reason for Referral * Outpatient (Routine) - Closed Specialty Diagnoses / Procedures Referred By Contac t Referred To Contact Diagnoses Hematuria Procedures URO Urethral cath change (UCC) Paula Hernandez M.D. [address] [place] [address] [facility] Referral ID Status Reason Start Date Expiration Date Visits Re quested Visits Authorized [id number] Closed 09/15/2023 09/14/2024 1 1 * Outpatient (Routine) - Authorized Specialty Diagnoses / Procedures Referred By Contac t Referred To Contact Radiology Diagnoses Hematuria Procedures IR Nephrostomy Tube Exchange Left Paula Hernandez M.D. [address] [place] [address] [facility] Referral ID Status Reason Start Date Expiration Date V isits Requested Visits Authorized [id number] Authorized 09/15/2023 09/14/2024 1 1 Reason for Visit * Reason Comments Blood in Urine Encounter Details Date Type Department Care Team (Latest Contact Info) Description 09/09/2023 7:24 AM CDT - 09/15/2023 5:28 PM CDT Hospital Encounter [facility], [facility], Sixth Floor [address] [place] [phone] Gerri Merrill M.D., Ph.D. [address] [place] [phone] Sumit Holbrook M.D. [address] [place] [phone] Hematuria (Primary Dx) Discharge Disposition: Home or Self Care Social History Tobacco Use Types Packs/Day Years Used Date Smoking Tobacco: Never Smokeless Tobacco: Never [facility] [employer] Answer Date Recorded In the past 12 months has [facility] [employer], gas, oil, or water [employer] threatened to shut off services in your [...] living situation today? I have a [facility] place to live 09/09/2023 Sex [...] [facility] Discharge Provider: Sumit Holbrook M.D. Primary Team: [facility] Urology Surgery [...] IP CONSULT TO UROLOGY IP CONSULT TO MUD TRUCKER WOUND CARE IP CONSULT TO HYPERBARIC MEDICINE [...] through Care Everywhere. * Sulfamethoxazole/Trimethoprim (By mouth) (Faroese) documented in this encounter Medications at Time [...] to catheter removal 20 tablet 08/26/2023 11/30/2023 sulfamethoxazole-trime thoprim (BACTRIM DS) 800-160 mg per [...] reviewed. GI Function: Last BM Date: 09/11/23, [place] Stool Chart: Type 5: Soft blobs with [...] 86.8 kg (09/09/2023) Current Weight: 84.5 kg [place] Body Weight (Calculated) : 75.3 kg BMI [...] or 5%. Estimated Needs: Total Calorie Needs: 8358-1899 calories/day Method to Estimate Energy Needs: kcal/kg [...] about patient's nutritional care please contact pager [phone] on weekdays 07:30-16:00 or [phone] on weekends/holidays ([facility]). * Clara Luu APRN, C.N.P., [...] 0659 09/14/23 07 - 09/15/23 0659 Shift [phone] 24 Hour Total 3576-1366 [phone] 1489-0192 24 Hour Total INTAKE Other 30 60 [...] please contact Vascular and Interventional Radiology DEBBI ([phone]). Anticoagulation: A percutaneous nephrostomy tube is considered [...] care. Please feel free to page the [facility] Inpatient Consult Service at [phone] or the on-call resident at [phone] after 5 PM and on weekends with [...] . Neph tube clear yellow urine. I/O ([id number]): 1.9 L, 1.1 L from the neph [...] questions or concerns. Pager during business hours: [phone] Pager after hours: [phone] * Paula Hernandez M.D. - 09/13/2023 6:05 [...] in place draining clear yellow urine I/O ([id number]): Adequate urine output 2.7 L/248 1 L [...] questions or concerns. Pager during business hours: [phone] Pager after hours: [phone] * Raya Meza Pharm.D., R.Ph., [facility] - 09/12/2023 7:44 AM CDT [...] in place draining clear yellow urine I/O ([id number]): CBI paused for obs Labs: Hb: Hemoglobin [...] Date/Time Bacterial Culture, Aerobic + Susceptibility, Urine [[id number]] (Abnormal) (Susceptibility) Collected: 09/09/23 1128 Lab Status: [...] Susceptible Bacterial Culture, Aerobic + Susceptibility, Urine [[id number]] Collected: 09/03/23 1050 Lab Status: Final result [...] questions or concerns. Pager during business hours: [phone] Pager after hours: [phone] * Js Yang M.D. - 09/11/2023 9:18 [...] [place] [phone] during business hours orat [phone] after hours. * Portillo Crespo Pharm.D., R.Ph., [...] LUCERO, BCPS, [facility] Pager [phone] * Js Yang M.D. - 09/10/2023 9:50 [...] [place] [phone] during business hours orat [phone] after hours. * Quin Harrell Pharm.D., R.Ph., [...] R.N., C.W.C.N. - 09/09/2023 1:16 PM CDT [facility] Wound RN consulted to assess Kalen [...] None Unable to Measure N *Wound Bed Open;Hewlett;Yellow;Fibrin/Slough Tissue Exposed None Odor None *Exudate Amount Small Drainage Description Serous;Perez Janiya-wound Assessment Intact;Fragile;Hewlett;Purple;Maceration;White Periwound Treatment Liquid skin protectant (SurePrep) *Primary Dressing Gelling fiber/Hydrofiber (Aquacel Ag) *Primary Dressing Frequency of Change Daily & PRN *Secondary Dressing Foam (Sacral Mepilex Border) *Secondary Dressing Frequency of Change Daily & PRN Lengthy Treatment > 30 minutes > 30 minutes Ongoing management Nursing;Wound/graphotype operator Partial head to toe skin assessment [...] PM CDT * Raya Meza Pharm.D., R.Ph., [facility] - 09/09/2023 11:17 AM CDT Images [...] for medicationuse optimization Stephanie Meza, Pharm.D., R.Ph., [facility] Admission Medication History Note Adherence issues: [...] follow Paula Hernandez M.D. Urology PGY-2 Pager #[phone] Please page Chief Urology at [phone] from 7 AM - 5 PM or at [phone] after hours with any questions/concerns. documented in [...] reviewed. GI Function: Last BM Date: 09/11/23, [place] Stool Chart: Type 5: Soft blobs with [...] 86.8 kg (09/09/2023) Current Weight: 84.5 kg [place] Body Weight (Calculated) : 75.3 kg BMI [...] or 5%. Estimated Needs: Total Calorie Needs: 4894-4867 calories/day Method to Estimate Energy Needs: kcal/kg [...] about patient's nutritional care please contact pager [phone] on weekdays 07:30-16:00 or [phone] on weekends/holidays ([facility]). * Clara Luu APRN, C.N.P., [...] for CBI. He was transferred to [facility] after difficultywith irrigating his Jon and CT [...] and recommendations. Please feel free to page [phone] [phone] after 5 PM and on weekends with additional questions. VIR will continue to follow * Alessandra Aguero D.O. - 09/09/2023 5:26 PM CDTAssociated Order(s): IP CONSULT TO VASCULAR MEDICINE VASCULAR MEDICINE CONSULT NOTE Requesting Physician: Gerri Merrill M.D.,* SUBJECTIVE REASON FOR CONSULT: assistance with AC management, patient on plavix and eliquis admitted with refractory hematuria requing CBI. Recommend heparin drip? thanks [facility] [phone] HISTORY OF PRESENT ILLNESS Mr. Vega is [...] stents placed in total (2016, no prior ND, completed after positive stress test) Recommended for [...] for radiation proctitis SOCIAL HISTORY Lives in [place], [place] OBJECTIVE AVSS General: Lying in bed, [...] with Dr. Victoria, the chief urology resident alliance consultant. Please page chief Urology Service [place] [phone] [place] [phone] after hours. Paula Hernandez M.D. 09/09/23 9:10 [...] End of Shift Summary: Pt DC'd to [facility] with family. Patient educated on nephrostomy tube [...] Urology consulted after discussion with the catheter trace evidence technician who advised that for this patient they are required to get approval from Urologyprior to placing catheter. ED Course as of 09/09/23 0958 TueSeptember 09, 2023 0822 Hemoglobin(!): 8.9 Down from 9.6 one-week ago 0822 Leukocytes(!): 14.5 New leukocytosis with neutrophilia 0822 INR: 1.1 0823 Discussed with the catheter trace evidence technician. Bladder scan showed 125 mL. There [...] CDT Nurse Only Department of Urology in [address] [address] Burke Strauss M.D. [facility] [place] [address] Discharge Disposition: Home or Self Care Pending [...] without Differential (09/15/2023 3:37 AM CDT) Pathologist [facility] Hemoglobin 9.8(L) 13.2 - [...] BLOOD ADD-ON [facility] [address] [facility] 200 [place] [address] * Heparin Anti-Xa Assay (09/14/2023 3:19 AM CDT) [facility] Heparin Anti-Xa, P 0.11 IU/mL 2023 [...] Sumit Holbrook M.D. [place] [address] * (ABNORMAL) CBC without Differential (09/14/2023 3:19 AM CDT) [facility] Hemoglobin 10.1(L) 13.2 - 16.6 g/dL [...] [facility] [address] [place] [address], [facility] [address] [place] [address] * IR Nephrostomy Tube Placement Left (09/13/2023 2:20 PM CDT) Anatomical Region Laterality Modality Genito Urinary, Vascular Int erventional RST LOS, Vascular Interventional ARZ LOS, Vascular Interventional FLA LOS Left X-Ray Angiography Impressions 09/13/2023 2:33 PM CDT Left 10 Slovak percutaneous nephrostomy tube placement. EP Narrative 09/13/2023 [...] tract was further dilated and a 10 Slovak nephrostomy tube was placed with loop formed [...] sedation timewas: 9 minutes. IMPRESSION: Left 10 Slovak percutaneous nephrostomy tube placement. EP Latisha Whitehead M.D. IMG IR PROCEDURE S * Fungal Culture, Routine (09/13/2023 2:17 PM CDT) Fungal Culture, Routine No growth after 24 days of incubation. 10/08/2023 1:02 AM CDT DTL Fluid (Kidney, Left) 09/13/2023 2:17 PM CDT 09/13/2023 3:56 PM CDT Comment:Specimen Source Site : Fluid Latisha Whitehead M.D. LAB MICROBIOLOGY - GENERAL ORDERABLES Performing Organization Address City/[facility]/ZIP Co de Phone Number [facility] [address] [place] [address], [facility] [address] [place] [address] * Bacterial Culture, Anaerobic + Susceptibility (09/13/2023 2:17 PM CDT) Bacterial Culture, Anaerobic + Susc No growth after 14 days of incubation. 09/27/2023 8:04 AM CDT DTL Fluid (Kidney, Left) 09/13/2023 2:17 PM CDT 09/13/2023 3:56 PM CDT Comment:Specimen Source Site : Fluid Latisha Whitehead M.D. LAB MICROBIOLOGY - GENERAL ORDERABLES Performing Organization Address City/[facility]/ZIP Co de Phone Number [facility] [address] [place] [address], [facility] [address] [place] [address] * Gram Stain (09/13/2023 2:17 PM CDT) Pathologist [facility] Gram Stain No organisms seen. White blood cells, Rare 09/13/2023 9:02 PM CDT DTL Fluid (Kidney, Left) 09/13/2023 2:17 PM CDT 09/13/2023 3:56 PM CDT Comment:Specimen Source Site : Fluid Latisha Whitehead M.D. LAB MICROBIOLOGY - GENERAL ORDERABLES Performing Organization Address City/[facility]/ZIP Co de Phone Number [facility] [address] [place] [address], [facility] [address] [place] [address] * Bacterial Culture, Aerobic + Susceptibility (09/13/2023 2:17 PM CDT) [facility] Bacterial Culture, Aerobic + Susc No growth after 5 days of incubation. 09/18/2023 12:35 PM CDT DTL Fluid (Kidney, Left) 09/13/2023 2:17 PM CDT 09/13/2023 3:56 PM CDT Comment:Specimen Source Site : Fluid Latisha Whitehead M.D. LAB MICROBIOLOGY - GENERAL ORDERABLES Performing Organization Address City/[facility]/ZIP Co de Phone Number [facility] [address] [place] [address], [facility] [address] [place] [address] * (ABNORMAL) CBC without Differential (09/13/2023 5:57 [...] CDT Ko Victoria M.D[place] [address], [facility] [address] * Heparin Anti-Xa Assay (09/13/2023 5:56 AM [...] LAB BLOOD NON ADD-ON Performing Organization Address [facility] Co de Phone Number [phone] [place] [address] * APTT (Activated Partial Thromboplastin Time) (09/13/2023 5:56 AM CDT) Activated Partial Thrombopl Time, P 35 25 - 37 sec 09/13/2023 7:14 AM CDT DTL Blood (Blood, Venous) 09/13/2023 5:56 AM CDT 09/13/2023 6:53 AM CDT Sumit Holbrook M.D. LAB BLOOD ADD-ON Performing Organization Address [facility] Co de Phone Number [phone] [place] [address] * (ABNORMAL) Basic Metabolic Panel (09/13/2023 5:56 [...] 2021 CKD_EPI creatinine equation. Calcium, Total, S 8.5(L) 8.8 - 10.2 mg/dL 09/13/2023 8:42 AM CDT DTL Glucose, S 92 70 - 140 mg/dL 09/13/2023 8:42 AM CDT DTL Blood (Blood, Venous) 09/13/2023 5:56 AM CDT 09/13/2023 8:08 AM CDT Paula Hernandez M.D. LAB BLOOD ADD-ON [facility] [address] [place] [address], [place] [facility] [address] [place] [address] * NM Kidney DMSA (09/12/2023 12:21 PM [...] reduced radiotracer uptake asdescribed. Js Yang M.D. [facility] PROCEDURES * Transfuse Red Blood Cells : [...] CBC without Differential (09/12/2023 3:42 AM CDT) [facility] Signature Hemoglobin 7.2(L) 13.2 - 16.6 g/dL 09/12/2023 [...] M.D. LAB BLOOD ADD-ON Performing Organization Address [facility] [place] [address] * (ABNORMAL) APTT (Activated Partial Thromboplastin Time) (09/12/2023 3:42 AM CDT) [facility] Activated Partial Thrombopl Time, P 49(H) 25 - 37 sec 09/12/2023 4:35 AM CDT DTL Blood (Blood, Venous) 09/12/2023 3:42 AM CDT 09/12/2023 4:00 AM CDT Gerri Merrill M.D., Ph.D. LAB BLOOD A DD-ON Performing Organization Address [facility] [place] [address] * (ABNORMAL) Basic Metabolic Panel (09/11/2023 8:23 AM CDT) [facility] Potassium, S 3.5(L) 3.6 - [...] CDT Js Yang M.D. LAB BLOOD ADD-ON [address] [address], [facility] [address] [address] * (ABNORMAL) CBC without Differential (09/11/2023 8:23 [...] M.D. LAB BLOOD ADD-ON Performing Organization Address City/[facility]/[place] [address] * (ABNORMAL) APTT (Activated Partial Thromboplastin Time) (09/10/2023 11:42 PM CDT) Pathologist [facility] Activated Partial Thrombopl Time, P 47(H) 25 - 37 sec 09/11/2023 2:05 AM CDT DTL Blood (Blood, Venous) 09/10/2023 11:42 PM CDT 09/11/2023 2:05 AM CDT Gerri Merrill M.D., Ph.D. LAB BLOOD A DD-ON Performing Organization Address [facility]/ZIP Co de Phone Number [facility] [address] [place] [address] * US Urinary Bladder (09/10/2023 8:41 PM [...] LAB BLOOD A DD-ON Performing Organization Address City/[facility]/ZIP Co de Phone Number [facility] [address] [place] [address], [facility] [address] [place] [address] * (ABNORMAL) APTT (Activated Partial Thromboplastin Time) (09/10/2023 10:11 AM CDT) Activated Partial Thrombopl Time, P 63(H) 25 - 37 sec 09/10/2023 10:57 AM CDT DTL Blood (Blood, Venous) 09/10/2023 10:11 AM CDT 09/10/2023 10:40 AM CDT Gerri Merrill M.D., Ph.D. LAB BLOOD A DD-ON [facility] [address] [place] [address], [facility] [address] [place] [address] * (ABNORMAL) CBC without Differential (09/10/2023 3:27 AM CDT) [facility] Hemoglobin 8.1(L) 13.2 - 16.6 [...] ADD-ON [facility] [address] [place] [address], [facility] [address] [place] [address] * (ABNORMAL) APTT (Activated Partial Thromboplastin Time) (09/10/2023 12:06 AM CDT) [facility] Activated Partial Thrombopl Time, P 57(H) 25 - 37 sec 09/10/2023 1:05 AM CDT DTL Blood (Blood, Venous) 09/10/2023 12:06 AM CDT 09/10/2023 12:33 AM CDT Gerri Merrill M.D., Ph.D. LAB BLOOD A DD-ON Performing Organization Address City/[facility]/ZIP Co de Phone Number [facility] [address] [place] [address], [facility] DTL [facility] [address] [place] [address] * APTT (Activated Partial Thromboplastin Time) (09/09/2023 5:08 PM CDT) Activated Partial Thrombopl Time, P 31 25 - 37 sec 09/09/2023 5:24 PM CDT [facility] Blood (Blood, Venous) 09/09/2023 5:08 PM CDT 09/09/2023 5:12 PM CDT Ko Victoria M.D. LAB BLOOD ADD-ON Performing Organization Address City/State/[facility] Co de Phone Number [facility] [address] [place], [place] [address] [place] [address] [address] * (ABNORMAL) Dipstick, Urine (09/09/2023 11:28 AM [...] LAB URINE ORDERA BLES Performing Organization Address City/[facility]/ZIP Co de Phone Number [facility] [address] [place] [address], [facility] [address] [place] [address] * pH, Random, Urine (09/09/2023 11:28 AM CDT) pH, Random, U 6.3 4.5 - 8.0 09/09/2023 12:19 PM CDT DTL Urine 09/09/2023 11:2 8 AM CDT 09/09/2023 11:58 AM CDT Jeffery Church M.D. LAB URINE ORDERA BLES Performing Organization Address City/[facility] Co de Phone Number [facility] [address] [place], [place] [phone] [place] [address] [address] [place] [address] * Osmolality, Urine (09/09/2023 11:28 AM CDT) Osmolality, U 380 150 - 1150 mOsm/kg 09/09/2023 12:19 PM CDT DTL Urine 09/09/2023 11:2 8 AM CDT 09/09/2023 11:58 AM CDT Jeffery Church M.D. LAB URINE ORDERA BLES Performing Organization Address City/[facility] Co de Phone Number [facility] [address] [place], [place] [phone] [place] [address] [address] [place] [address] * (ABNORMAL) Microscopic Manual (09/09/2023 11:28 AM [...] LAB URINE ORDERA BLEBryon Performing Organization Address [facility] Co de Phone Number [facility] [address] [place] [address], [facility] [address] [place] [address] * (ABNORMAL) Gram Stain, Urine (09/09/2023 11:28 AM CDT) Source Urine, Urine, Straight Catheter 09/09/2023 11:58 AM CDT DTL Gram Stain, U Positive(A) Negative 09/09/2023 12:16 PM CDT DTL Comment: Few Gram-negative bacilli ? Yeast Urine 09/09/2023 11:2 8 AM CDT 09/09/2023 11:58 AM CDT Jeffery Church M.D. LAB URINE ORDERA SHELLY Performing Organization Address [facility] de Phone Number [facility] [address] [place] [address], [facility] DTL [facility] [address] [place] [address] * (ABNORMAL) Bacterial Culture, Aerobic + Susceptibility, [...] Church M.D. LAB MICROBIOLOGY - GENERAL ORDERABLES [facility] [address] [place] [address], [place] DTL [facility] [address] [place] [address] * (ABNORMAL) Urinalysis, with Microscopic: Urine, Straight [...] 09/09/2023 1:02 PM CDT DTL Predicted Range 2480-33240 mg/24 h 09/09/2023 1:02 PM CDT DTL Comment Micro done on <2.5 mL 09/09/2023 12:27 PM CDT DTL Urine (Urine, Straight Catheter) 09/09/2023 11:28 AM CDT 09/09/2023 11:58 AM CDT Jeffery Church M.D. LAB URINE ORDERA BLES [facility] [address] [place] [address], [facility] [address] [place] [address] * US Kidneys Bilateral with Bladder (09/09/2023 [...] ADD-ON [facility] [address] [place] [address], [facility] STMA [facility] [address] [place] [address] * (ABNORMAL) CBC with Differential, Blood (09/09/2023 [...] [facility] [address] [place] [address], [facility] ST[facility] [address] [place] [address] [facility] [address] [place] [address] * (ABNORMAL) Basic Metabolic Panel (09/09/2023 8:04 [...] M.D. LAB BLOOD ADD-ON Performing Organization Address [facility] Co de Phone Number [facility] [address] [place] [address], [facility] STMA [facility] [address] [place] [address] * Type and Screen (with Reflex Antibody [...] BANK T EST ORDERABLES Performing Organization Address [facility] Co de Phone Number [facility] [address] [place] [address], [facility] STRM [facility] [address] [place] [address] documented in this encounter Visit Diagnoses Diagnosis [...] 09 (Given - Provider: Brittanie Lewis R.N.) 0904 [...] 0159 (New Bag - Provider: Lilia Whitney RNarendra)0715 (Stopped - Provider: Leonardo Clark R.N.) heparin [...] Provider: Lars Chavez R.N.)1412 (Given - Provider: Lasr Chavez R.N.) heparin (porcine) 1,000 unit/mL injection [...] 0 0550 (Given - Provider: Lilia Whitney RJonahN.) iohexoL 300 mg iodine/mL solution (OMNIPAQUE) (COMPLETED) [...] documented as of this encounter Care Teams Statuary Painter Relationship Specialty Start Date End Date Elsewhere, Pcp PCP - General Internal Medicine 08/13/23 documented as of this encounter
--- OUTSIDE RECORDS SUMMARY | 2023-12-08 12:52 | XMS_ITS | Encounter Summary ---
Author Organization [facility] Address [address] [place] [address] Care Team Providers Care Hearing Consultant Name Role Phone Elsewhere, Pcp Primary Care Provider Unavailabl e Encounter Details Date Type Department Care Team (Late st Contact Info) Description 09/06/2023 Orders Only Section of Hyperbaric Medicine in [place], [place] [address] [place] [address] Kira Ferraro, ARUN, C.N.P., M.S.N. [address] [place] [address] Social History Tobacco Use Types Packs/Day Years Used Date Smoking Tobacco: Never Smokeless Tobacco: Never [facility] Utilities Answer Date Recorded In the [...] [facility] 09/09/2023 Sex and Gender Information Value Date Recorded Sex Assigned at Not on file Gender Identity Not on file Sexual Orientation Not on file documented as of this encounter Plan of Treatment Upcoming Encounters Date Type Department Care Team (Late st Contact Info) Description 12/13/2023 9:15 AM CDT Nurse Only Department of Urology in [place], [place] [address] [place] [phone] Burke Strauss M.D. 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
--- OUTSIDE RECORDS SUMMARY | 2023-12-08 12:53 | XMS_ITS | Clinical Summary ---
Author Organization [facility] Address [place], [place] [address] Care Team Providers Care Lending Advisor Name Role Phone Cesar Mccollum MD Primary Care Provider Nicola Ware MD Unavailable Mireya Tan MD Unavailable [phone] [facility] Unavailable [phone] Allergies No known active allergies Medications Medication [...] AT BEDTIME 90 Tablet 3 4 Active metoprolol succinate (TOPROL XL) 50 mg sustained-release tabletIndications:H ypertension, unspecified type Take 1 Tablet (50 mg) by mouth once daily. 90 Tablet 3 4 Active tamsulosin (FLOMAX) 0.4 mg capsuleIndications: BPH without urinary obstruction Take 1 Capsule (0.4 mg) by mouth once daily after a meal. 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 daily 4 Active acetaminophen (TYLENOL EXTRA STRGTH) 500 mg tabletIndications:P ain Take 2 Tablets (1,000 mg) by mouth 3 times daily if needed for Pain. Max acetaminophen dose: 4000mg in 24 hrs. 4 Active amLODIPine (NORVASC) 10 mg tabletIndications:B enign essential HTN Take 0.5 Tablets (5 mg) by mouth once daily. 4 Active clopidogreL (PLAVIX) 75 mg tabletIndications:C oronary artery disease, unspecified vessel or lesion type, unspecified whether angina present, unspecified whether alat[place] or transplanted heart Take 1 Tablet (75 mg) by mouth every morning. 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 OCE=198.87 Bladder mass 02/29/2020 04/30/2020 Hematuria 02/29/2020 03/05/2020 Acute deep vein thrombosis (DVT) 02/29/2020 11/20/2020 S/P coronary angioplasty 11/03/2016 Chest pain 09/15/2016 03/05/2020 Elevated prostate specific antigen (PSA) 10/06/2010 03/05/2020 Hip arthritis 10/06/2010 03/05/2020 Colon polyp 07/15/2010 PATRICE (acute kidney injury) Obstructive uropathy 020 Encounters Date Type Department Care Team Description 12/07/2023 Telephone [facility] [address] [place] [address] Cesar Mccollum MD Follow Up 12/05/2023 Home Care Visit [address] [address] Doreen Hussein RN SN - HOME VISIT 12/02/2023 10:30 AM CDT Home Care Visit [address] [address] Raffy Carter, PT PT - REASSESSMENT 12/02/2023 Plan of Care Documentation [address] [address] 11/30/2023 4:00 PM CDT Home Care Visit [address] [address] Doreen Hussein RN SN - OASIS RECERTIFICATION 11/30/2023 10:30 AM CDT Office Visit [facility] [address] [place] [address] Cesar Mccollum MD Follow Up; Medication Management (Discuss plavix - not currently taking it) 11/30/2023 Travel 11/25/2023 11:00 AM CDT Home Care Visit [address] [address] Raffy Carter, PT PT - INITIAL ASSESSMENT 11/23/2023 8:00 AM CDT Home Care Visit [address] [address] Brittanie Prieto RN SN - HOME VISIT 11/21/2023 3:30 PM CDT Home Care Visit [address] [address] Rigo Heart RN SN - OASIS RESUMPTION OF CARE 11/18/2023 Home Care Visit [address] [address] Rufina Cosby, RN CARE COORDINATION 11/14/2023 11:30 AM CDT Home Care Visit [address] [address] Brittanie Prieto, JAMEL SN - MISSED VISIT 11/14/2023 Home Care Visit [address] [address] Raffy Carter, PT PT - OASIS TRANSFER 11/11/2023 10:30 AM CDT Home Care Visit [address] [address] Raffy Carter, PT PT - HOME VISIT 11/09/2023 9:00 AM CDT Home Care Visit [address] [address] Barbara Fuentes, JAMEL SN - HOME VISIT 11/07/2023 Home Care Visit [address] [address] Rufina Cosby, RN CARE COORDINATION 11/04/2023 10:30 AM CDT Home Care Visit [address] [address] Raffy Carter, PT PT - HOME VISIT 10/31/2023 11:00 AM CDT Home Care Visit [address] [address] Doreen Hussein, JAMEL SN - HOME VISIT 10/31/2023 2:30 AM CDT Home Care Visit [address] [address] Liz Fang, [facility] MANGLE TENDER - MISSED VISIT 10/28/2023 10:30 AM CDT Home Care Visit [address] [address] Raffy Carter, PT PT - HOME VISIT 10/25/2023 11:30 AM CDT Home Care Visit [address] [address] Raffy Crater, PT PT - REASSESSMENT 10/24/2023 11:00 AM CDT Home Care Visit [address] [address] Doreen Hussein, JAMEL SN - HOME VISIT 10/24/2023 10:00 AM CDT Home Care Visit [address] [address] Liz Fang LICSW MANGLE TENDER - HOME VISIT 10/21/2023 12:00 PM CDT Home Care Visit [address] [address] Raffy Carter, PT PT - HOME VISIT 10/20/2023 10:35 AM CDT Office Visit [facility] [address] [place] [address] Cesar Mccollum MD Follow Up; Concerns (Discuss protocol for hyperbaric treatment at hospital) 10/20/2023 Travel 10/19/2023 9:45 AM CDT Home Care Visit [address] [address] Rigo Heart RN SN - HOME VISIT 10/18/2023 Home Care Visit [address] [address] Milli Torre RN CARE COORDINATION 10/17/2023 3:00 PM CDT Home Care Visit [address] [address] Raffy Carter, PT PT - HOME VISIT 10/17/2023 10:00 AM CDT Home Care Visit [address] [address] Liz Fang LICSW MANGLE TENDER - INITIAL ASSESSMENT 10/14/2023 Home Care Visit [address] [address] Raffy Carter, PT PT - MISSED VISIT 10/12/2023 Telephone [facility] [address] [place] [address] Cesar Mccollum MD Questions 10/11/2023 7:15 AM CDT Home Care Visit [address] [address] Manav Montero, JAMEL SN - WOUND/OSTOMY CHART CONSULT 10/10/2023 4:00 PM CDT Home Care Visit [address] [address] Deonna Oliveira, COLORMAN PT - HOME VISIT 10/10/2023 10:30 AM CDT Home Care Visit [address] [address] Milli Torre, RN SN - HOME VISIT 10/08/2023 9:00 AM CDT Home Care Visit [address] [address] Justyna Hernandez RN SN - INITIAL ASSESSMENT 10/08/2023 Telephone [facility] [address] [place] [address] Cesar Mccollum MD Home Care (BP med parameters) 10/07/2023 11:30 AM CDT Home Care Visit [address] [address] Raffy Carter, PT PT - HOME VISIT 10/07/2023 Home Care Visit [address] [address] Milli Torre RN CARE COORDINATION 10/06/2023 1:00 PM CDT Ancillary Procedure [address] [place] [address] 10/06/2023 Travel 10/04/2023 1:00 PM CDT Office Visit [facility] [address] [place] [address] Souleymane Miller MD Follow Up (Annual Follow up /Coronary artery disease) 10/04/2023 10:15 AM CDT Home Care Visit [address] [address] Manav Rodríguez, PT PT - OASIS START OF CARE 10/04/2023 Telephone [facility] [address] [place] [address] Manav Rodríguez, PT Home Care 10/04/2023 Orders Only [facility] [address] [place] [address] Souleymane Miller MD 1 scan: (1-Ord) NFLD-EKG-10/04/23 10/04/2023 Travel 10/04/2023 Plan of Care Documentation [address] [address] 10/03/2023 Telephone [facility] [address] [place] [address] Cesar Mccollum MD Questions 10/02/2023 Home Care Visit [address] [address] Saul Lawson, RN CARE COORDINATION 10/01/2023 Home Care Visit [address] [address] Saul Lawson, RN CARE COORDINATION 09/29/2023 1:40 PM CDT Office Visit [facility] [address] [place] [address] Cesar Mccollum MD Hospital F/U ([place], urinary problem); Concerns (Bed sore - would like checked) 09/29/2023 Travel 09/23/2023 Telephone [facility] [address] [place] [address] Cesar Mccollum MD Results 09/22/2023 10:30 AM CDT Orders Only [facility] [address] [facility] [place] [address] Lab, [place] Lab 09/22/2023 9:50 AM CDT Nurse/Clinic Staff Only [facility] [address] [place] [address] Dressing Change 09/22/2023 Telephone [facility] [address] [place] [address] Cesar Mccollum MD Results 09/22/2023 Travel 09/21/2023 3:20 PM CDT Nurse/Clinic Staff Only [facility] [address] [place] [address] Procedure (UA collection from jon and neph tube) 09/21/2023 Telephone [facility] [address] [place] [address] Letty Mera MD 09/20/2023 2:15 PM CDT Ancillary Procedure [facility] [address] [place] [address] 09/20/2023 1:00 PM CDT Office Visit [facility] [address] [place] [address] Letty Mera MD Hospital F/U (Admission Date: 09/09/2023 Discharge Date: 09/15/23); Wound Check (sacrum & neph tube site. ); Home Care; Concerns (Feels like catheter is falling out - pt states that it is leaking. ) 09/20/2023 Travel 09/15/2023 Transcribe Orders [facility] [address] [place] [address] Provider, Non-Excellian 09/13/2023 Telephone [facility] [address] [place] [address] Cesra Mccollum MD Procedure (social security specialist) from Last 3 Months Immunizations Name Administration Dates Next Due COVID-19 Vaccine Spikevax (M oderna 50mcg/0.5mL) 12YO+ 8522-1820 Formula PF 07/21/2023,03/08/2023 COVID-19 vaccine (Pfizer-Bio NTech 30mcg/0.3mL) 12YO+ BIVALENT PF, MDV 09/13/2022,01/28/2022 COVID-19 vaccine (Pfizer-Bio NTech 30mcg/0.3mL) 12YO+ DAYRON-SUCROSE PF, MDV 08/26/2021 COVID-19 vaccine ([employer] Dat[employer] NTech 30mcg/0.3mL) PF, MDV 01/13/2021,06/17/2020,2020 Influenza, Inactivated [...] Sign Reading Time Taken Comments Blood Pressure 120/75 12/05/2023 11:50 AM CDT Pulse 77 12/05/2023 11:50 AM CDT Temperature 36.6 ??C (97.8 ??F) 12/02/2023 11:10 AM C DT Respiratory Rate 15 11/25/2023 11:25 AM CDT Oxygen Saturation 98% 12/05/2023 11:50 AM CDT Inhaled Oxygen Concentration - - Weight 80.6 kg (177 lb 9.6 oz) 11/30/2023 10:38 AM CDT Height 177.1 cm (5' 9.72) 07/21/2023 9:05 AM CD T Body Mass Index 25.69 07/21/2023 9:05 AM CDT Plan of Treatment Upcoming Encounters Date Type Department Care Team (Late st Contact Info) Description 12/09/2023 11:00 AM CDT Home Care Visit [address] [address] Raffy Carter, PT [address] [place] [address] 12/16/2023 11:00 AM CDT Home Care Visit [address] [address] Raffy Carter, PT [address] [place] [address] 12/23/2023 3:00 AM CDT Home Care Visit [address] [address] Raffy Carter, PT [address] [place] [address] Health Maintenance Due Date Last Done Comments [...] Completed 4 Medical Devices Implanted Type Area Tumbler Operator Device Identifier Shelf Expiration Date Model / Serial / Lot Stent Uret [id number] Contour - [id number] Implanted:Qty: 1 on 07/18/2023 by Nicola Ware MD at [facility] Right: [employer] [facility] 02/27/2026 [id number] / / [id number] Procedures Procedure Name Priority Date/Time Associated Diagnosis Comments HEMOGLOBIN Routine 11/30/2023 11:45 AM CDT Chronic blood loss anemia ECHO TTE COMPLETE WO CONTRAST DEBBI 10/06/2023 1:34 PM CDT Coronary artery disease, unspecified vessel or lesion type, unspecified whether angina present, unspecified whether [place] or transplanted heart EKG 12 LEAD Routine 10/04/2023 2:15 PM CDT Coronary artery disease, unspecified vessel or lesion type, unspecified whether angina present, unspecified whether [place] or transplanted heart NE READING EKG - NO CHARGE, COMP ONLY Routine 10/04/2023 2:14 PM CDT Coronary artery disease, unspecified vessel or lesion type, unspecified whether angina present, unspecified whether [place] or transplanted heart CBC WITH AUTO DIFFERENTIAL [...] (ABNORMAL) HEMOGLOBIN (11/30/2023 11:45 AM CDT) Pathologist [facility] HEMOGLOBIN 10.4(L) 13.5 - 17.5 g/dL 11/30/2023 11:50 AM CDT [facility] MCV 92 80 - 100 fL 11/30/2023 11:50 AM CDT [facility] Blood BLOOD SPECIMEN / Unknown Venipuncture / Unknown 11/30/2023 11:45 AM CDT 11/30/2023 11:45 AM CDT Cesar Mccollum MD HEMATOLOGY [facility] [address] [place] [address], * ECHO TTE COMPLETE WO CONTRAST (10/06/2023 1:34 PM CDT) Pathologist [facility] AORTIC VALVE MEAN PG 10 mmHg EJECTION FRACTION 60 % PEAK TR VELOCITY 2.8 m/s LVEDD 4.2 cm EJECTION FRACTION 65 - 70% Anatomical Region Laterality Modality Ultrasound 10/06/2023 12:5 9 PM CDT Narrative 10/06/2023 2:17 PM CDT ECHOCARDIOGRAM SHYAM SANDS ? Accession#: ?? [id number] : ?1940 83 years Study Date: ?? 10/06/2023 12:59:18 PM Gender: M ?BP: ? 131/72 mmHg Height: 175.26 cm ?BSA: ?1.98 m? ? ? Weight: 81.65 kg ? Tech: ? MBF ? Referring MD: SOULEYMANE MILLER Site: ? [facility] Reading Location: Mobile OP Patient Location: [...] . This study was interpreted by an [facility] accredited facility. ??Final ?? Procedure Note Manav Feliciano MD - 10/06/2023 ECHOCARDIOGRAM SHYAM SANDS : 1940 83 years Study Date: 10/06/2023 12:59:18 PM Gender: M BP: 131/72 mmHg Height: 175.26 cm BSA: 1.98 m? ? ? Weight: 81.65 kg Tech: [facility] Referring MD: SOULEYMANE MILLER Site: [facility] Reading Location: [place] [facility] Patient Location: Outpatient. Procedure: 2D, Color [...] . This study was interpreted by an [facility] accredited facility. Final Souleymane Miller MD ECHO [...] Mera MD HEMATOLOGY [facility] [address] [place] [address], * (ABNORMAL) URINE CULTURE (09/21/2023 4:40 PM CDT) Only the most recent of2 resultswithin the time period is included. CULTURE RESULT(A) 09/24/2023 9:54 AM CDT [facility] CULTURE >100,000 CFU/mL Shirin albicans 09/24/2023 9:54 AM CDT [facility] Urine URINE SPECIMEN / Unknown Non-Blood / Unknown 09/21/2023 4:40 PM CDT 09/21/2023 4:41 PM CDT Letty Mera MD MICROBIOLO GY [facility] [address] [place] [address], [place] * XR CHEST 2 VIEWS PA [...] Documents on File Type Date Recorded Patient Chain Puller Expl anation Healthcare Directive 05/15/2021 022 * [...] Code Status Discussion: Reviewed Preferences Care Teams Lending Advisor Relationship Specialty Start Date End Date Cesar Mccollum MD [address] [place] [address] PCP - General Family Practice 03/04/20 Nicola Ware MD [address] [place] [address] Surgery - Urology 03/13/20 Mireya Tan MD [address] [place] [address] Hematology - Pathology 03/13/20 [facility] [address] [place], [place] [id number] 09/29/23
--- OUTSIDE RECORDS SUMMARY | 2023-12-08 12:53 | XMS_ITS | Encounter Summary ---
Author Organization [facility] Address [address] [place] [address] Care Team Providers Care Awning Maker Name Role Phone Elsewhere, Pcp Primary Care Provider Unavailabl e Encounter Details Date Type Department Care Team (Late st Contact Info) Description 08/30/2023 Documentation Department of Urology in [place], [place] [address] [place] [address] Corin Ring M.D. [address] [place] [phone] Social History Tobacco Use Types Packs/Day Years Used Date Smoking Tobacco: Never Smokeless Tobacco: Never [facility] Utilities Answer Date Recorded In the past 12 months has [facility] [employer], gas, oil, or water [employer] threatened to shut off services in your [...] CDT Nurse Only Department of Urology in [place], [place] [address] [place] [phone] Burke Strauss M.D. [address] [place] [phone] Discharge Disposition: Home or Self Care documented as of this encounter Visit Diagnoses Not on filedocumented in this encounter Care Teams Awning Maker Relationship Specialty Start Date End Date Elsewhere, Pcp PCP - General Internal Medicine 08/13/23 documented as of this encounter
--- OUTSIDE RECORDS SUMMARY | 2023-12-08 12:53 | XMS_ITS | Encounter Summary ---
Author Organization [facility] Address [address] [place] [address] Care Team Providers Care Fund Accounting Manager Name Role Phone Elsewhere, Pcp Primary [...] [facility] 08/13/2023 Sex and Gender Information Value Date Recorded Sex Assigned at Not on file Gender Identity Not on file Sexual Orientation Not on file documented as of this encounter Plan of Treatment Upcoming Encounters Date Type Department Care Team (Late st Contact Info) Description 12/13/2023 9:15 AM CDT Nurse Only Department of Urology in [place], [place] [address] [place] [address] Burke Strauss M.D. 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
--- OUTSIDE RECORDS SUMMARY | 2023-12-08 12:53 | XMS_ITS | Data Portability ---
Author Organization [facility], [facility] Address [address] [place] [address] Care Team Providers Care Outreach Librarian Name Role Phone MASOUD SAUER Primary Care Provider Assessment No assessment recorded. Plan of Treatment Reminders Order Date Submit Date Provider Last Modified By Organization Details Last Modified Time Details Appointments None recorded . Lab urinalys is, dipstick 2023 024 [email or web address] [facility], [address] [place], [address], 4 15:08:54 culture, urine 2023 024 [facility], [address], [place], [address], 4 10:11:11 Referral None recorded . Procedures None recorded . Surgeries cystosco py with ureteral stent exchange (SURG) 2021 022 [email or web address] Not available 16:50:47 cystosco py with ureteral stent exchange (SURG) 2021 022 [email or web address] Not available 15:46:30 Imaging None recorded . Medication Orders Myrbetri q 50 mg tablet,e xtended release 2021 022 [place] [id number], [address] [place], [place], [id number], 2 17:50:02 Bactrim DS 800 mg-160 mg tablet 2023 024 [email or web address] [facility] #[id number], [address] [place], [place], [phone], 16:19:28 Patient TargetsNo targets recorded. Patient InstructionsNo [...] for provi sydni revie w. Not Available [facility] [address], [place], [address], 06/25/2023 10:11:11 06/23/19 24 06/23/2023 urina lysis , dipst ick Color-Status Red Not Available [facility] [address], [place], [address], 06/23/2023 15:08:10 06/23/19 24 06/23/2023 urina lysis , dipst ick pH-Status 7.5 Not Available [facility] [address], [place], [address], 06/23/2023 15:08:10 06/23/19 24 06/23/2023 urina lysis , dipst ick Protein-Stat us >=9.0 Not Available [facility] [address], [place], [address], 06/23/2023 15:08:10 06/23/19 24 06/23/2023 urina lysis , dipst ick Nitrates-Sta tus negati ve Not Available [facility] [address], [place], [address], 06/23/2023 15:08:10 06/23/19 24 06/23/2023 urina lysis , dipst ick Blood-Status Large Not Available [facility] [address], [place], [address], 06/23/2023 15:08:10 06/23/19 24 06/23/2023 urina lysis , dipst ick Leuko-Status Negati ve Not Available [facility] [address], [place], [address], 06/23/2023 15:08:10 06/23/19 24 06/23/2023 urina lysis , dipst ick Specimen Type Voided Not Available [facility] [address], [place], [address], 06/23/2023 15:08:10 07/04/19 24 07/01/2023 CT, abdom en + pelvi s, w/o contr ast No observ ation record ed. [email or web address] [facility] [address], [place], [address], 09/01/2023 14:40:29 07/18/19 24 07/18/2023 XR, kidne y + urete r + bladd er No observ ation record ed. [email or web address] [facility] [address], [place], [address], 07/22/2023 15:56:19 Result Notes None recorded. Procedures Surgical History Date Name Laterality Status Provider Name and Address Organization Details Recorded Time Bladder Scan completed [facility], [facility] 06/23/2023 15:08:00 Cystoscopy completed Nicola Ware MD [address], [place], [address], [facility] 12/30/2021 17:11:17 Colonoscopy completed Nicola Ware MD [address], [place], [address], [facility] 12/30/2021 17:11:22 Imaging Results Imaging Date Name Status LastModified by Organiz ation Details LastModified Time 07/01/2023 CT, abdomen + pelvis, w/o contrast completed [address] [facility] [address] [facility] [facility], [place], [address], 09/01/2023 14:40:29 07/18/2023 XR, kidney + ureter + bladder completed [address], [place], [address], 07/22/2023 15:56:19 Procedure Notes None recorded. Medical [...] [facility] [employer] [employer] RECEIVED FROM [facility] active Not Available Not Available No t Available furosemide 20 mg tablet TAKE 1 TABLET BY MOUTH DAILY active Not Available Not Available No t Available cefuroxime axetil 500 mg tablet active Not Available Not Available No t Available polyethylen e glycol 3350 17 gram/dose oral powder MIX AND DRINK DIRECTED IN [facility] [facility] RECEIVED FROM [facility] active Not Available Not Available No [...] Updated DateTime 12/30/2021 177.8 cm 27.4 kg/m2 63125.14 g Nicola Ware MD [address] [place] [address], [address], [facility] 12/30/2021 17:10:12 Date Recorded Body height Body mass index (BMI) Body weight Provider Name and Address Organization Details Last Updated DateTime 03/12/2022 177.8 cm 27.4 kg/m2 78434.14 g Rabia Ferrell [facility] 03/12/2022 13:55:47 Social History Question Answer Notes LastModified by Organizat ion Details LastModified Time Tobacco Smoking Status Never Smoker Nicola Ware MD [address] [place] [address],[address], [address], [facility] 12/30/2021 17:11:00 What Is Your [...] Encounter Closed Date Diagnosis/Indication Diagnosis SNOMED-CT Code Diagnosis ICD10 Code [id number] Nicola Ware MD [facility] [address] [place] [address] 12/30/2021 16:01:19 01/01/2022 09:36:50 Increased frequency of urination 937000312 R35.0 Malignant tumor of prostate 883182050 C61 Hydronephrosis 94618609 N13.30 [id number] Aliza Landeros [facility] [address] [place] [address] 03/12/2022 13:13:50 03/15/2022 14:00:47 Increased frequency of urination 170864344 R35.0 Malignant tumor of prostate 412053421 C61 Hydronephrosis 64219241 N13.30 [id number] Nicola Ware MD [facility] [address] [place] [address] 06/23/2023 14:16:52 06/24/2023 08:40:38 Blood in urine 41362279 R31.9 Health Concerns Section Related Observation LastModified by Organization Detai ls LastModified Time None Recorded Concern Status LastModified by Organization Details LastModified Time None Recorded Advance Directives Directive None Recorded Payers Encounter Date Sequence Insurance Name Policy Number Policy Krishnan Covered Member ID Krishnan Member ID Guarantor Name 12/30/2021 1 [employer] (MEDICARE REPLACEMENT/ ADVANTAGE - PPO) [id number] José Miguel Srinivasan Braucher [id number] José Miguel Srinivasan Braucher 03/12/2022 1 [employer] (MEDICARE REPLACEMENT/ ADVANTAGE - PPO) [id number] José Miguel Srinivasan Braucher [id number] José Miguel D Braucher 06/23/2023 1 [employer] (MEDICARE REPLACEMENT/ ADVANTAGE - PPO) [id number] José Miguel Srinivasan Braucher [id number] José Miguel Vega Notes Date Note Type Note Provider Name and Address Organization Details Recorded Time 12/30/2021 text/html HPI Notes: Excer pt from hospital consultation... 81 y.o. year old male who was admitted to [facility] for gross hematuria & CT findings. [...] of the history. Nicola Ware MD [address], [place], [address], [facility] 12/30/2021 23:07:10 03/12/2022 text/html HPI Notes: Excer pt from hospital consultation... 81 y.o. year old male who was admitted to [facility] for gross hematuria & CT findings. [...] some of the history. Nicola Ware MD [address] [place] [address],[address], [place], [address], [facility] 03/12/2022 17:21:47 06/23/2023 text/html HPI Notes: 83 Y male here after calling triage this AM with hematuria/pain with urination. Patient has stent in place, last exchange 02/08/2022. 06/23/23 visit completed by Curry Ware MD [address] [place] [address],[address], [place], [address], [facility] 06/23/2023 16:19:33
--- OUTSIDE RECORDS SUMMARY | 2023-12-08 12:53 | XMS_ITS | Encounter Summary ---
Author Organization [facility] Address [address] [place] [address] Care Team Providers Care Lead Slot Technician Name Role Phone Elsewhere, Pcp Primary Care Provider Unavailabl e Reason for Visit * Reason Comments Urinary Problem Rapid Heart Rate Encounter Details Date Type Department Care Team (Late st Contact Info) Description 08/31/2023 12:36 PM CDT - 08/31/2023 2:31 PM CDT Surgery RST ROMB MAIN OR [address] [place] [address] Mayur Alvarez M.D. [address] [place] [phone] CYSTOSCOPY EVACUATION CLOTS Social History Tobacco Use [...] PM CDT DISCHARGE SUMMARY BRIEF OVERVIEW Hospital: [facility] Discharge Provider: Mayur Alvarez M.D. Primary Team: [...] Mayur Alvarez M.D.White, Lindsay A, M.D. [facility] ROMB OR DISCHARGE DISPOSITION Home-Health Care [facility] [6] ACTIVE ISSUES REQUIRING [...] CONSULT TO CARE MANAGEMENT IP CONSULT TO PRESIDENT AND CEO WOUND CARE IP CONSULT TO HYPERBARIC MEDICINE [...] [facility] that connects older [place] and their families with the help they need. Call the Senior LinkAge Line?? at: [phone] M-F, 8am-4:30pm to connect with specialists that are available to assist you with your specific needsor check out their website at [email or web address] * Attachments The following attachments cannot be sent through Care Everywhere. * Cefdinir (By mouth) (Brazilian) documented in this encounter Medications at Time [...] questions or concerns. Pager during business hours: [phone] Pager after hours: [phone] * Jeffery Valdez M.D. - 09/04/2023 10:34 [...] questions or concerns. Pager during business hours: [phone] Pager after hours: [phone] * Jeffery Valdez M.D. - 09/03/2023 4:10 [...] [facility]: Diet: Regular Activity: Ad [...] questions or concerns. Pager during business hours: [phone] Pager after hours: [phone] * Paula Hernandez M.D. - 09/02/2023 6:25 [...] questions or concerns. Pager during business hours: [phone] Pager after hours: [phone] * Michelle Willams R.N., C.W.C.N. - 09/01/2023 11:43 AM CDT [facility] Wound RN consulted to assess [...] Secondary Dressing Status Clean;Dry;Intact Changed by Wound director money Ongoing management Nursing;Wound/peanut separator Urine Assessment Urine Color Colorless Hematuria Scale [place] Urine Appearance Clear;Sediment Head to toe skin [...] nursing. They agree to the plan. The [facility] RN will continue to see [...] update the patient. Son stated that a Retail Advertising Sales Manager visited the home and will be trying to assist both and patient with cares/coordination. OBJECTIVE Patient is located on [facility] room 111. Referrals were sent to the following agencies: Home Medical Care - Admitted Since 08/30/2023 Service Provider Request Status Selected Services Address Phone Fax Patient Preferred [facility] [place] Pending - Request Sent N/A [address], [facility] [phone] -- [facility] - Request Sent N/A [address] [facility] [address], [facility] [place] [address] -- Home Health Care Pending - Request Sent N/A [address], [facility] [address] -- [facility] Pending - Request Sent N/A [address] [facility] [address] [phone] -- [facility] Pending - Request Sent N/A [address] [facility] [phone] -- [facility] Pending - Request Sent N/A [address] [facility] [address], [facility] [address] [phone] -- [facility] Declined Facility Full N/A [address] [facility] [phone] -- ASSESSMENT / PLAN ASSESSMENT Borough Coordinator attempted to contact patient on room phone but was unable to get through. Case Manageras able to reach his son who will update that patient that the preferred home health agency was unable to accept and that referrals would be sent to other home health agencies. Requested services arenursing for wound care and catheter and PT/OT. PLAN Borough Coordinator will follow up with referrals. Case Manger [...] questions or concerns. Pager during business hours: [phone] Pager after hours: [phone] * Paula Hernandez M.D. - 08/31/2023 10:45 [...] risks associated with surgery and anesthesia including [place], stroke, and VTE were also discussed. Finally, [...] questions or concerns. Pager during business hours: [phone] Pager after hours: [phone] Associated attestation - Mayur Alvarez M.D. - 08/31/2023 12:14 PM CDT I agree with the Urology Chief Service plan for palliative cystoscopy under anesthesia, clot evacuation, proceed as indicated. We will plan for judicious irrigation given his recent bladder surgery and we will perform a cystogram at the end of the procedure. * Demarco Salazar, PharmJonahD., R.Ph., [facility] - 08/31/2023 7:19 AM CDT Images [...] discontinuation of antibiotics. Pedrito Salazar Pharm.D., R.Ph., [facility] Admission Medication History Note Adherence issues: [...] Complete Set By: Demarco Salazar Pharm.D., R.Ph., [facility] at 08/31/2023 7:22 AM Taking? Last [...] y.o. male transferred to the [facility] ED for further management of gross hematuria. [...] He was then transferred to [facility] on 08/12; a CT cystogram was performed [...] on CBI and transferred to [facility] for further management. On my initial evaluation [...] for radiation proctitis SOCIAL HISTORY Lives in [place], [place] OBJECTIVE Vitals Blood pressure 134/84, pulse [...] & Screen Expiration 09/02/2023 23:59 Testing Location [facility] Imagin08/30/23 EXAM: US URINARY BLADDER COMPARISON: CT [...] obstruction and was transferred to [facility] for further evaluation and management. Urinary bladder ultrasound showing 5 cm clot burden; catheter draining on fast-rate CBI after multiple rounds of hand irrigation. Plan - Continue CBI - Q2h hr hand irrigations - NPO overnight pending am re-evaluation - Hold Plavix, Xarelto for now The above was discussed with Drs. Venegas and Lefty, the chief urology residents data processing systems consultant. Please page chief Urology [place] [phone] [place] [phone] afterhours. documented in this encounter Procedure Notes [...] on androgen deprivation therapy. 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 No scuba diving experience. Electronic [...] prolonged inpatient stay, would request transfer to [facility] prior to initiation of hyperbaric [...] 11 Referral Reason: Discharge Planning Primary Language: Brazilian Table Tender Services Used: No Person(s) present during interview: Person(s) Present During Interview: patient and child Kar History of Present Illness #1 Hematuria Social History Support System: spouse, children, and home care staff Primary Caregiver: self and family Finance/Insurance Primary insurance: MEDICARE A AND B Secondary insurance: SubitecA benefits: No Advance Directives Legal Decision Maker: Self Advance Directives: N/A Advance Directives Status: N/A OBJECTIVE Baseline Functional Status Baseline Activities of Daily Living Mobility: Requires aide of device Dressing: Independent Feeding: Independent Bathing: Independent Grooming: Independent Toileting: Independent Behavior: Appropriate, Pleasant, Calm, Cooperative, Oriented Communication: Can write, Talks, Understands speaking, Understands Brazilian, Reads Shopping: Needs assistance Medication Management: Independent Housekeeping: Needs assistance Meal Prep: Independent Assistive Devices: Walker - front wheeled, Eyeglasses, Hearing aid(s) Agency Name: [facility] Provided: Fdc/PT/OT Transportation: Support from family Baseline Services/Resources Primary care clinic and provider: ELSEWHERE, PCP Additional Resources: N/A Anticipated Needs Functional Status: Housekeeping, Shopping, Transportation use (drive car, use taxi/bus), Mobility, Transfer to/from bed, chair, etc., Bathing Assistive Devices: Eyeglasses, Hearing aid(s), Walker - front wheeled Services/Resources: Home health Agency Name: [facility] Provided: Fdc/PT/OT Anticipated Modifications to the Patient's Home: None Transportation Needs: Support from family Does the patient need discharge transport arranged?: No Anticipated Discharge Destination: Home-Health Care [facility] ASSESSMENT / PLAN Assessment: The cigarette machines mechanic met with Kalen Vega to discuss his current hospitalization and home goingneeds. The patient was accompanied by son, Kar . The patient was a reliable historian. The role ofRN Borough Coordinator was reviewed. The patient reviewed his prior level of care and support system. The patient receives support from his and children. The patient described his living environment as a home with bedroom and bathroom on same floor withstairs to enter with rails. Housekeeping, grocery shopping, meal prep, and other household responsibilities have previously been completed by patient and patient's son. cigarette machines mechanic discussed the patient's potential needs at dismissal based on their home setting, previous needs and responsibilities, homebound status, and relevant assessments with the patient. The patient will be safe and supported to return home with [facility] or previous services noted above when medically [...] PICC removal he would not need care. Borough Coordinator will clarifywith home health team regarding if [...] chart and meeting with the patient, the cigarette machines mechanic deemed the LACE+/readmission questions were appropriate. The [...] current readmission could have been prevented. The cigarette machines mechanic will share this information with the care team. The patient reports understanding that he will dismiss from the hospital when medically stable. Thefollowing potential barriers to dismissal have been identified: Home Health Care Addendum 1230: Borough Coordinator called [facility]. They received the referral but declined due to being at capacity. Plan: The patient agrees with the following plan. Patient's anticipated discharge disposition is: Home with Home Healthcare Referrals sent. Transportation upon dismissal will be provided by family--Kar . cigarette machines mechanic recommended home health services. cigarette machines mechanic provided information regarding the dismissal process and the Senior Linkage Line ([place] Board on Aging) handout. cigarette machines mechanic placed or requested the following hospital-based consult orders and/or referrals: None. cigarette machines mechanic will follow up with the patient to [...] with updates and/or transition plan to come. cigarette machines mechanic encouraged the patient to reach out with [...] CDT Pre-op Diagnosis Hematuria Post-op Diagnosis Hematuria Fleet Service Manager A promotions assistant actively participated and was necessary for [...] or filling defects. 5. Placement of [address] catheter with 20 cc in [...] The resectoscope was removed and a [address] catheter was placed with 20 [...] secondary to cystostomy closure presenting today from [facility] with concerns for worsening hematuria. He was [...] 08/30/2023 8:48 AM CDT Pt transferred from [facility] via EMS, pt c/o blocked jon cath that started today. Pt had a right uretal stent exchange and an open bladder repair 08/15/23 and was discharged 08/25. Pt had a3 way jon placed at [facility], and transferred here because the clots returned. [...] CPN, CCDS, CCS, CRC Clinical Documentation Data Entry Specialist Query created by: ELMER Barker, RN, CPN, [...] CDT Nurse Only Department of Urology in [place], [place] [address] [place] [address] Burke Strauss M.D. [address] [place] [phone] Discharge Disposition: Home or Self Care Pending [...] CDT Roxy Romero M.D. LAB BLOOD ADD-ON [facility] [address] [place] [address], [facility] [address] [place] [address] * (ABNORMAL) Basic Metabolic Panel (09/05/2023 4:52 [...] De Paz M.D. LAB BLOOD ADD-ON [facility] [address] [place] [address], [facility] [address] [place] [address] * (ABNORMAL) Basic Metabolic Panel (09/04/2023 8:15 [...] CDT Jeffery Valdez M.D. LAB BLOOD ADD-ON [facility] [address] [place] [address], [facility] [address] [place] [address] * (ABNORMAL) CBC without Differential (09/04/2023 8:15 [...] - 14.5 % 09/04/2023 9:19 PM CDT PM Platelet Count 306 135 - 317 x10(9)/L 09/04/2023 9:19 PM CDT [facility] Leukocytes 7.5 3.4 - 9.6 x10(9)/L 09/04/2023 9:19 PM CDT [facility] Blood (Blood, Venous) 09/04/2023 8:15 PM CDT 09/04/2023 8:52 PM CDT Jeffery Valdez M.D. LAB BLOOD ADD-ON [facility] [address] [place] [address], [facility] [address] [place] [address] * Transfuse Red Blood Cells : (09/04/2023 3:30 PM CDT) Jeffery Valdez M.D. BLOOD TRANSFUSION OR DERABLES * Transfuse Red Blood Cells : , 1 Units (09/04/2023 3:30 PM CDT) Jeffery Valdez M.D. BLOOD TRANSFUSION OR DERABLES * Type and Screen (with Reflex Antibody ID) (09/04/2023 10:59 AM CDT) [facility] ABOR O Pos Not applicable 09/04/2023 11:46 AM CDT STRM Antibody Screen Negative Negative 09/04/2023 11:59 AM CDT STRM Type & Screen Expiration 09/07/2023 23:59 09/04/2023 11:46 AM CDT STRM Testing Location [facility] DEFAULT 09/04/2023 11:21 AM CDT STRM Blood (Blood, Venous) 09/04/2023 10:59 AM CDT 09/04/2023 11:21 AM CDT Jeffery Valdez M.D. LAB BLOOD BANK TEST ORDERABLES [facility] [address] [place] [address], [facility] STRM [facility] [address] * Heparin Anti-Xa Assay (09/04/2023 7:34 AM CDT) [facility] Heparin Anti-Xa, P 0.12 IU/mL [...] LAB BLOOD NON A DD-ON [facility] - [address] [address], [facility] [address] [address] * (ABNORMAL) CBC without Differential (09/04/2023 7:34 AM CDT) [facility] Hemoglobin 7.7(L) 13.2 - 16.6 [...] M.D. LAB BLOOD ADD-ON Performing Organization Address [facility] Co de Phone Number [facility] [address] [place], [place] [phone] [place] [address] [place] [address] * Heparin Anti-Xa Assay (09/04/2023 12:30 AM [...] BLOOD NON A DD-ON Performing Organization Address [facility] Co de Phone Number [facility] [address] [place] [address], [facility] [address] [place] [address] * Bacterial Culture, Aerobic + Susceptibility, Urine (09/03/2023 10:50 AM CDT) Pathologist [facility] Urine Culture No growth after 1 day of incubation. 09/04/2023 8:52 AM CDT DTL Urine (Urine, Indwelling Catheter) 09/03/2023 10:50 AM CDT 09/03/2023 11:53 AM CDT Comment:Specimen Source Site : Urine Jeffery Valdez M.D. LAB MICROBIOLOGY - G ENERAL ORDERABLES Performing Organization Address [facility]/ZIP Co de Phone Number [facility] [address] [place] [address], [facility] DTL [facility] [address] [place] [address] * (ABNORMAL) CBC without Differential (09/03/2023 3:29 AM CDT) Pathologist [facility] Hemoglobin 8.0(L) 13.2 - 16.6 [...] BLOOD ADD-ON Performing Organization Address City/[facility]/ZIP Co de Phone Number [facility] [address] [place] [address], [facility] [address] [place] [address] * Heparin Anti-Xa Assay (09/03/2023 3:29 AM [...] Alvarez M.D. LAB BLOOD NON A DD-ON [facility] [address] [place] [address], [facility] [address] [place] [address] * Heparin Anti-Xa Assay (09/02/2023 2:57 AM [...] BLOOD NON A DD-ON Performing Organization Address City/[facility]/ZIP Co de Phone Number [facility] [address] [place], [place] [phone] [place] [address] [facility] [address] [place] [address] * (ABNORMAL) CBC without Differential (09/01/2023 8:16 [...] BLOOD ADD-ON Performing Organization Address [facility]/ZIP Co de Phone Number [facility] [address] [place], [place] [address] DTL [facility] [address] [place] [address] * Heparin Anti-Xa Assay (09/01/2023 6:50 PM CDT) [facility] Heparin Anti-Xa, P 0.35 IU/mL [...] BLOOD NON A DD-ON Performing Organization Address City[facility]/ZIP Co de Phone Number [facility] [address] [place] [address], [facility] [address] [place] [address] * APTT (Activated Partial Thromboplastin Time) (09/01/2023 9:05 AM CDT) [facility] Activated Partial Thrombopl Time, P 28 25 - 37 sec 09/01/2023 9:35 AM CDT [facility] Blood (Blood, Venous) 09/01/2023 9:05 AM CDT 09/01/2023 9:21 AM CDT Paula Hernandez M.D. LAB BLOOD ADD-ON [facility] [address] [place] [address], [facility] STMA [facility] [address] [place] [address] * (ABNORMAL) Basic Metabolic Panel (08/31/2023 9:36 [...] M.D. LAB BLOOD ADD-ON [facility] [address] [place] [address], [facility] [address] [place] [address] * (ABNORMAL) CBC without Differential (08/31/2023 9:36 [...] CDT Paula Hernandez M.D. [place] [address], [facility] [address] [address] * [place] Fluoro Less Than 1 Hour [...] Vieira M.D., M.S. LAB BLOO D ADD-ON [facility] [address] [place] [address], [facility] [address] [place] [address] * Type and Screen (with Reflex Antibody ID) (08/30/2023 9:50 PM CDT) [facility] ABORh O Pos Not applicable 08/30/2023 10:17 PM CDT STRM Antibody Screen Negative Negative 08/30/2023 10:31 PM CDT STRM Type & Screen Expiration 09/02/2023 23:59 08/30/2023 10:17 PM CDT STRM Testing Location [facility] DEFAULT 08/30/2023 9:58 PM CDT [facility] Blood (Blood, Venous) 08/30/2023 9:50 PM CDT 08/30/2023 9:58 PM CDT Shannan Correa D.O., M.H.A. LAB BLOOD BANK TEST ORDERABLES Performing Organization Address [facility]/ZIP Co de Phone Number [facility] [address] [place] [address], [facility] STRM [facility] [address] [place] [address] * Lactate (08/30/2023 9:50 PM CDT) [facility] Lactate, P 1.8 0.5 - 2.2 mmol/L 08/30/2023 10:09 PM CDT [facility] Blood (Blood, Venous) 08/30/2023 9:50 PM CDT 08/30/2023 9:55 PM CDT Shannan Correa D.O., M.H.A. LAB BLOOD NON ADD-ON [facility] [address] [place] [address], [facility] STMA [facility] [address] [place] [address] * (ABNORMAL) Basic Metabolic Panel (08/30/2023 9:49 PM CDT) Pathologist [facility] Potassium, P 3.6 3.6 - [...] D.O., M.H.A. LAB BLOOD ADD- ON [facility] [address] [place] [address], [facility] STMA [facility] [address] [place] [address] * (ABNORMAL) CBC with Differential, Blood (08/30/2023 [...] D.O., M.H.A. LAB BLOOD ADD- ON [facility] [address] [place] [address], [place] STMA [facility] [address] [place] [address] [facility] [address] [place] [address] * DX Chest AP or PA and [...] MUSE QTC Interval 403 ms MUSE P [place] 44 degrees MUSE R [place] 9 degrees MUSE T Wave [place] -76 degrees MUSE 08/30/2023 7:44 PM CDT [...] at 6 oxyCODONE IR tablet 5 mg (ROXICODONE) 5 [...] Sarah Morgan RJonahNJonah - Reason: See Provider Order)5023 (Unheld by provider - Provider: Jeffery Valdez M.D.) 0812 (Given - Provider: Tayler Espinoza RJonahNJonah) 0911 (Given - Provider: Vanessa Leo R.N.) [...] of 40 mEq Dissolve per financial aid advisor recommendations. Do NOT chew or swallow tablet., [...] 0541 (New Bag - Provider: Gaye Dillard R.N.)0921 (Stopped - Provider: Joy Jackson R.N.) NaCl [...] 2256 documented in this encounter Care Teams Lead Slot Technician Relationship Specialty Start Date End Date Elsewhere, Pcp PCP - General Internal Medicine 08/13/23 documented as of this encounter
--- OUTSIDE RECORDS SUMMARY | 2023-12-08 12:53 | XMS_ITS | Encounter Summary ---
Author Organization [facility] Address [address] [place] [address] Care Team Providers Care Emergency Telecommunications Dispatcher Name Role Phone Elsewhere, Pcp Primary Care [...] CDT Nurse Only Department of Urology in [place], [place] [address] [place] [address] Burke Strauss M.D. 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
== END 2023-12-08 12:47 | disposition home or self-care (01) ==
LOC: WOUND 12:46
PROVIDERS: PCP Family Medicine; Visit Provider Nurse Practitioner Family
DX: N30.41 Irradiation cystitis with hematuria (principal); L89.153 Pressure ulcer of sacral region, stage 3; K62.7 Radiation proctitis; N13.30 Unspecified hydronephrosis; D64.9 Anemia, unspecified; Y84.2 Radiological procedure and radiotherapy as the cause of abnormal reaction of the patient, or of later complication, without mention of misadventure at the time of the procedure; Z79.01 Long term (current) use of anticoagulants
CPT/HCPCS: 11042; G0277

== ENCOUNTER 2023-12-13 12:10 | Outpatient (CLI) | payer MEDICARE, OTHER, SELFPAY ==
--- OUTSIDE RECORDS SUMMARY | 2023-12-13 12:12 | XMS_ITS | Referral Summary ---
Author Organization [place] Address [address] [place] [address] Care Team Providers Care Ventilation Mechanic Name Role Phone Cesar Mccollum Primary Care Provider [phone] Allergies No known active allergies Medications Medication [...] on file Medical Devices Implanted Type Area Specialty Manufacturing Supervisor Device Identifier Shelf Expiration Date Model / Serial / Lot Stent Ureteral Polaris Ultra [id number] - [id number] Implanted:Qty : 1 on 02/08/2022 by Nicola Ware MD at [facility] Stent Right: Ureter [employer] [id number] 10/08/2024 [id number] Explanted Type Area Specialty Manufacturing Supervisor Device Identifier Shelf Expiration Date Model / Serial / Lot Stent Came Out Of The Right Ureter Explanted:Qty: 1 on 02/08/2022 by Nicola Ware MD at [facility] Right: Urethra Advance Directives For more information, please contact: [phone] Documents on File Type Date Recorded Patient Web Content & Social Media Manager Expl anation Advance Directives and Living Will 02/17/2022 Health Care Directiv e 05/15/2021 Healthcare Agents on File Name Relationship Healthcare Agent Relationship Communication Mindy Waterman Daughter [employer] Alterna te Health Care Agent Meera Vega Spouse Health Care Agent [phone] (Home) Favio Vega Son Co-[employer] Altern ate Health Care Agent Tereso Vega Son [employer] Alterna te Health Care Agent Care Teams Ventilation Mechanic Relationship Specialty Start Date End Date Cesar Mccollum [address] [place] [address] PCP - General Family Medicine 11/22/22
--- OUTSIDE RECORDS SUMMARY | 2023-12-13 12:12 | XMS_ITS | Clinical Summary ---
Author Organization [facility] Address [address] [place] [address] Care Team Providers Care Disulfurizer Tender Name Role Phone Cesar Mccollum Primary Care Provider [phone] Allergies No known active allergies Medications Medication [...] 60+ series) 1999 FALL RISK ASSESSMENT 2004 MEDICARE ANNUAL WELLNESS VISIT 01/28/2023 01/28/2022, 11/20/2020 PHQ-2 (once per calendar year) 2023 COVID-19 Vaccine ( season) 2023 09/13/2022, 01/28/2022, 08/26/2021, Additional history exists INFLUENZA VACCINE (#1) 2023 01/28/2022 DTAP/TDAP/TD IMMUNIZATION [...] this topic Medical Devices Implanted Type Area Door Assembler Device Identifier Shelf Expiration Date Model / Serial / Lot Stent Ureteral Polaris Ultra [id number] - [id number] Implanted:Qty : 1 on 02/08/2022 by Nicola Ware MD at [facility] Stent Right: Ureter [employer] [id number] 10/08/2024 [id number] Explanted Type Area Door Assembler Device Identifier Shelf Expiration Date Model / Serial / Lot Stent Came Out Of The Right Ureter Explanted:Qty: 1 on 02/08/2022 by Nicola Ware MD at [facility] Right: Urethra Advance Directives For more information, please contact: [phone] Documents on File Type Date Recorded Patient [place] Expl anation Advance Directives and Living Will 02/17/2022 Health Care Directiv e 05/15/2021 Healthcare Agents on File Name Relationship Healthcare Agent Relationship Communication Mindy Waterman Daughter Co-First Alterna te Health Care Agent Meera Vega Spouse Health Care Agent Favio Vega Son Co-First Altern ate Health Care Agent Tereso Vega Son Co-First Alterna te Health Care Agent Care Teams Disulfurizer Tender Relationship Specialty Start Date End Date Cesar Mccollum [address] [place] [address] PCP - General Family Medicine 11/22/22
--- OUTSIDE RECORDS SUMMARY | 2023-12-13 12:12 | XMS_ITS | Clinical Summary ---
Author Organization [facility] Address [address] [place] [address] Care Team Providers Care Concrete Spreader Name Role Phone Elsewhere, Pcp Primary Care Provider Unavailabl e Source Comments Patient records contain information from all sites at [facility]. For routine questions regarding patient records, call [phone] during business hours, M-F 8:00 AM - 5:00 PM Central Time. 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[place] Coronary Artery Without Angina Pectoris 11/15/2023 Overview (11/15/2023): stent placements 2017 Complication Procedure Initial 11/15/2023 Deficiency Iron 11/15/2023 Hyperlipidemia 11/15/2023 Hypertension Essential Primary 11/15/2023 Retirement Current Use Of Oth er Agents Affecting Estrogen Receptors And Estrogen Levels 11/15/2023 Presence Of Other Vascular Implants And Grafts 0 11/15/2023 Other Specified Disorders Of Bladder 11/15/2023 Other Retention Of Urine 11/15/2023 PreDiabetes 11/15/2023 Presence Of Urogenital Implants 11/15/2023 Unspecified Complication Of Genitourinary Prosthetic Device Implant And Graft Initial 11/15/2023 Inferior Vena Cava Filter 11/15/2023 Retirement (Current) Anticoagulant Treatment 09/2023 Presence Of Other [...] Encounters Date Type Department Care Team Description 12/13/2023 9:15 AM CDT Nurse Only Department of Urology in [address] [phone] Burke Strauss M.D. Gray, Margaret A, L.PJonahNJonah Nurse Visit (Catheter Irrigation ) Discharge Disposition: Home or Self Care 12/08/2023 9:30 AM CDT Office Visit Department of Urology in [address] [phone] Burke Strauss M.D. Retention Urinary Chronic (Primary Dx); Anemia; Anemia In Neoplastic Disease; Retirement (Current) Anticoagulant Treatment Discharge Disposition: Home or Self Care 12/07/2023 12:19 PM CDT - 12/07/2023 11:59 PM CDT Hospital Encounter Department of Laboratory Medicine in [address] [phone] Burke Strauss M.D. Anemia; Hematuria Gross; Retention Urinary Chronic Discharge Disposition: Home or Self Care 12/07/2023 10:30 AM CDT Office Visit Department of Urology in [address] [phone] Burke Strauss M.D. Hematuria Gross (Primary Dx); Radiation Therapy Cystitis With Hematuria; Anemia; Retention Urinary Chronic Discharge Disposition: Home or Self Care 11/30/2023 6:44 PM CDT - 11/30/2023 8:06 PM CDT Emergency [facility] [address] [place] [phone] Carmen Cherry M.D., M.P.H. Leakage Of Other Urinary Catheter Initial (HCC) (Primary Dx) Discharge Disposition: Home or Self Care 11/15/2023 10:40 AM CDT Ancillary Procedure Department of Wound Ostomy 11/14/2023 11:38 PM CDT - 11/17/2023 3:55 PM CDT Hospital Encounter [facility], Fifth Floor [address] [place] [phone] Eliceo Guerrier M.D., Ph.D. Sylvie Álvarez M.B.BJonahSJonah, M.Craig. Rashawn Vences M.D. Burkland, Carl B, M.D. Hematuria Gross (Primary Dx) Discharge Disposition: Home-Health Care [facility] 11/14/2023 10:44 AM CDT - 11/14/2023 10:23 PM CDT Emergency [facility] [address] [place] [phone] Sergio Raza M.D. Hematuria (Primary Dx); Malfunction Mechanical Urethral Catheter Initial (HCC) Discharge Disposition: Acute [facility] 11/14/2023 Documentation Department of Urology in [address] [phone] Sowmya Aviles APRN, C.N.P., M.S.N. 11/14/2023 Intake [facility] 11/10/2023 Clinical Communication Department of Urology in [address] [phone] Burke Strauss M.D. Oncology records request 11/09/2023 11:00 AM CDT Office Visit Department of Urology in [address] [phone] Burke Strauss M.D. Primary Malignant Neoplasm Of Prostate (HCC) (Primary Dx); Retention Urinary Chronic; Hematuria Gross Discharge Disposition: Home or Self Care 11/09/2023 Clinical Communication Department of Urology in [address] [phone] Burke Strauss M.D. 10/27/2023 Clinical Communication Department of Urology in [address] [address] Burke Strauss M.D. 10/14/2023 1:00 PM CDT Procedure visit Department of Urology in [place], [place] [address] [place] [phone] Paula Hernandez M.D. Reichmann, Lynne G, R.N. Hematuria 10/14/2023 Documentation Department of Urology in [place], [place] [address] [place] [phone] Paula Hernandez M.D. Catheter Care Plan 09/27/2023 Clinical Communication Department of Urology in [place], [place] [address] [place] [phone] Paula Hernandez M.D. 09/21/2023 Clinical Communication Department of Urology in [place], [place] [address] [place] [phone] Paula Hernandez M.D. 09/16/2023 Clinical Communication Department of Urology in [place], [place] [address] [place] [phone] Provider, Unknown follow up questions 09/16/2023 Orders Only Department of Urology in [place], [place] [address] [place] [phone] Paula Hernandez M.D. Hematuria Gross (Primary Dx) 09/15/2023 Clinical Communication [facility] [address] [place] [phone] Yasmine Loco 09/09/2023 7:24 AM CDT - 09/15/2023 5:28 PM CDT Hospital Encounter [facility], Sixth Floor [address] [place] [phone] Gerri Merrill M.D., Ph.D. Sumit Holbrook M.D. Hematuria (Primary Dx) Discharge Disposition: Home or Self Care from Last 3 Months Social History Tobacco Use Types Packs/Day Years Used Date Smoking Tobacco: Never Smokeless Tobacco: Never Tobacco Cessation:Counseling Given: Not Answered [facility] Utilities Answer Date Recorded In the past 12 months has e-contratos, oil, or water [employer] threatened to shut off services in your [...] have a [facility] place to live 11/15/2023 Sex and Gender [...] Department Care Team (Latest Contact Info) Description 01/11/2024 9:00 AM CDT Procedure visit Department of Urology in [place], [place] [address] [place] [phone] Burke Strauss M.D. [facility] [place] [phone] Discharge Disposition: Home or Self Care Health [...] Completed 11/14/2023 Medical Devices Implanted Type Area Graining Operator Device Identifier Shelf Expiration Date Model / Serial / Lot Clp Hrzn Ti 6 Clp Lg Orng - [id number] Implanted:Qt y: 1 on 08/15/2023 by Boubacar Brock M.D. at [facility] Hardware e.g. pins/screws /rods Abdomen [employer] [id number] 02/29/2028 [id number] / / [id number] Clp Hrzn Ti 6 Clp Lg Orng - [id number] Implanted:Qt y: 1 on 08/15/2023 by Boubacar Brock M.D. at [facility] Hardware e.g. pins/screws /rods Abdomen Teleflex [employer] [id number] 02/29/2028 [id number] / / [id number] 4 Clp Hrzn Ti 6 Clp Md Monty - [id number] Implanted:Qt y: 1 on 08/15/2023 by Boubacar Brock M.D. at [facility] Hardware e.g. pins/screws /rods Abdomen [employer] [id number] 03/13/2028 [id number] / / [id number] 1 Clp Hrzn Ti 6 Clp Monty - [id number] Implanted:Qt y: 1 on 08/15/2023 by Boubacar Brock M.D. at [facility] Hardware e.g. pins/screws /rods Abdomen [employer] [id number] 03/21/2028 [id number] / / [id number] 3 Stnt Uret Inl 6fx24 - [id number] Implanted:Qt y: 1 on 08/15/2023 by Jakob De Paz M.D. at [facility] Ureteral Stent N/A: Ureter [employer] [id number] 11/18/2027 [id number] / / [id number] Procedures Procedure Name Priority Date/Time Associated Diagnosis [...] DIFFERENTIAL, B Routine 09/12/2023 3:42 AM CDT from Last 3 Months Results [...] [facility]/ZIP Co de Phone Number [facility] [address] [place] [address], [facility] NPRG [address] [address] * Creatinine with Estimated GFR (12/07/2023 12:25 PM CDT) Creatinine 1.13 0.74 - 1.35 mg/dL 12/07/2023 12:49 PM CDT NPRG Estimated GFR (eGFR) 64 >=60 mL/min/BSA 12/07/2023 12:49 PM CDT NPRG Comment: Estimated GFR calculated using the 2020 CKD_EPI creatinine equation. Blood (Blood, Venous) 12/07/2023 12:25 PM CDT 12/07/2023 12:27 PM CDT Burke Strauss M.D. LAB BLOOD ADD-ON [facility] [address] [place] [address], [facility] NPRG [address] [address] * (ABNORMAL) CBC without Differential (11/17/2023 7:24 [...] LAB BLOOD ADD-ON [facility] [address] [place] [address], [facility] [place] [address] * (ABNORMAL) Basic Metabolic Panel (11/17/2023 7:24 AM CDT) Only the most recent of3 [...] LAB BLOOD ADD-ON [facility] [address] [place] [address] * Glucose, POCT (11/17/2023 6:45 AM CDT) Glucose, POCT, B 107 70 - 140 mg/dL 11/17/2023 6:45 AM CDT MKTO Blood 11/17/2023 6:45 AM CDT 11/17/2023 7:03 AM CDT Generic Rals LAB POCT ORDERABLES- MANUAL [facility] [address] [place] [address] * (ABNORMAL) CBC with Differential, Blood (11/16/2023 6:25 AM CDT) Only the most recent of3 resultswithin the time period is included. Hemoglobin [...] CDT Rashawn Vences M.D. LAB BLOOD ADD-ON [facility] [address] [place] [address], [facility] MKTO [facility] [place] [address] [place] [address] * (ABNORMAL) Comprehensive Metabolic Panel (11/16/2023 6:25 [...] LAB BLOOD ADD-ON [facility] [address] [place] [address], [place] [address] * Transfuse Red Blood Cells : (11/15/2023 [...] BLOOD BANK TEST ORDERABLES Performing Organization Address [facility] Co de Phone Number [facility] [address] [place] [address], [place] [address] * Coccyx-Wound Ostomy Image Exam (11/15/2023 10:40 [...] RAD IMAGI NG PROCEDURES Performing Organization Address [facility] de Phone Number IIMS NA * ECG 12 Lead (11/15/2023 6:47 AM CDT) Pathologist [facility] Ventricular Rate ECG/Min 65 BPM MUSE MS Interval 144 ms MUSE QRSD Interval 76 ms MUSE QT Interval 430 ms MUSE QTC Interval 447 ms MUSE P Colbert -7 degrees MUSE R Colbert 9 degrees MUSE T Wave Colbert 19 degrees MUSE 11/15/2023 6:47 AM CDT [...] M.D. ECG ORD ERABLES Performing Organization Address [facility] Co de Phone Number MUSE NA [...] to determine due to color interference Specific [place] SEE COMMENT 1.001 - 1.035 11/15/2023 8:03 AM CDT MKTO Comment:Unable to determine due to color interference Urobilinogen SEE COMMENT 0.2 - 1.0 mg/dL 11/15/2023 8:03 AM CDT MKTO Comment:Unable to determine due to color interference Urine (Urine, Midstream) 11/15/2023 6:25 AM CDT 11/15/2023 6:34 AM CDT Sylvie Wright M.D. LAB URI NE ORDERABLES [facility] [address] [place] [address], [facility] [place] [address] [place] [address] * (ABNORMAL) Microscopic Automated (11/15/2023 6:25 AM [...] LAB URI NE ORDERABLES Performing Organization Address [facility] Co de Phone Number [facility] [address] [place] [address] * Bacterial Culture, Aerobic + Susceptibility, Urine (11/15/2023 6:24 AM CDT) Urine Culture Urogenital microbiota, susceptibilities not performed per laboratory criteria. 11/16/2023 11:36 AM CDT MKTO Urine (Urine, Indwelling Catheter) 11/15/2023 6:24 AM CDT 11/15/2023 9:29 AM CDT Comment:Specimen Source Site : Urine Zachery Tanner APRN C.N.P., M.S. LAB MICROBIOLOGY - GENERAL ORDERABLES Performing Organization Address [facility] Co de Phone Number [facility] [address] [place] [address], [place] [address] * CT Abdomen Pelvis without IV Contrast [...] M.D. LAB BLOOD BANK TEST ORDERABLES [facility] [address] [place] [address], [facility] NPRG [facility] [address] [place] [address] * Type and Screen (with Reflex Antibody [...] M.D. LAB BLOOD BANK TEST ORDERABLES [facility] [address] [place] [address], [facility] NPRG [facility] [address] [place] [address] * Heparin Anti-Xa Assay (09/14/2023 3:19 AM [...] Sumit Holbrook M.D. LAB BLOOD NON ADD-ON [facility] [address] [place] [address], [facility] [address] [place] [address] * IR Nephrostomy Tube Placement Left (09/13/2023 2:20 PM CDT) Anatomical Region Laterality Modality Genito Urinary, Vascular Int erventional RST LOS, Vascular Interventional ARZ LOS, Vascular Interventional FLA LOS Left X-Ray Angiography Impressions 09/13/2023 2:33 PM CDT Left 10 Scottish percutaneous nephrostomy tube placement. EP Narrative 09/13/2023 [...] tract was further dilated and a 10 Scottish nephrostomy tube was placed with loop formed [...] sedation timewas: 9 minutes. IMPRESSION: Left 10 Scottish percutaneous nephrostomy tube placement. EP Latisha Whitehead M.D. IMG IR PROCEDURE S * Bacterial Culture, Aerobic + Susceptibility (09/13/2023 2:17 PM CDT) Bacterial Culture, Aerobic + Susc No growth after 5 days of incubation. 09/18/2023 12:35 PM CDT DTL Fluid (Kidney, Left) 09/13/2023 2:17 PM CDT 09/13/2023 3:56 PM CDT Comment:Specimen Source Site : Fluid Latisha Whitehead M.D. LAB MICROBIOLOGY - GENERAL ORDERABLES [facility] [address] [place] [address], [facility] DTL [facility] [address] [place] [address] * Gram Stain (09/13/2023 2:17 PM CDT) Gram Stain No organisms seen. White blood cells, Rare 09/13/2023 9:02 PM CDT DTL Fluid (Kidney, Left) 09/13/2023 2:17 PM CDT 09/13/2023 3:56 PM CDT Comment:Specimen Source Site : Fluid Latisha Whitehead M.D. LAB MICROBIOLOGY - GENERAL ORDERABLES Performing Organization Address City/[facility]/ZIP Co de Phone Number [facility] [address] [place], [place] [address] [place] [address] 200 [place] [address] * Fungal Culture, Routine (09/13/2023 2:17 PM CDT) Fungal Culture, Routine No growth after 24 days of incubation. 10/08/2023 1:02 AM CDT DTL Fluid (Kidney, Left) 09/13/2023 2:17 PM CDT 09/13/2023 3:56 PM CDT Comment:Specimen Source Site : Fluid Latisha Whitehead M.D. LAB MICROBIOLOGY - GENERAL ORDERABLES Performing Organization Address City/[facility]/ZIP Co de Phone Number [facility] [address] [place], [place] [address] 200 [place] [address] * Bacterial Culture, Anaerobic + Susceptibility (09/13/2023 2:17 PM CDT) Bacterial Culture, Anaerobic + Susc No growth after 14 days of incubation. 09/27/2023 8:04 AM CDT DTL Fluid (Kidney, Left) 09/13/2023 2:17 PM CDT 09/13/2023 3:56 PM CDT Comment:Specimen Source Site : Fluid Latisha Whitehead M.D. LAB MICROBIOLOGY - GENERAL ORDERABLES Performing Organization Address [facility] Co de Phone Number [facility] [address] [place], [place] [address] [place] [address] 200 [place] [address] * APTT (Activated Partial Thromboplastin Time) (09/13/2023 5:56 AM CDT) Only the most recent of2 resultswithin the time period is included. Activated Partial Thrombopl Time, P 35 25 - 37 sec 09/13/2023 7:14 AM CDT DTL Blood (Blood, Venous) 09/13/2023 5:56 AM CDT 09/13/2023 6:53 AM CDT Sumit Holbrook M.D. LAB BLOOD ADD-ON Performing Organization Address [facility] Co de Phone Number [facility] [address] [place], [place] [address] [place] [address] 200 [place] [address] * [place] Kidney DMSA (09/12/2023 12:21 PM [...] asdescribed. Js Yang M.D. IMG [place] PROCEDURES from Last 3 Months Advance Directives For more information, please contact: [phone] * Full Code (Latest Code Status on [...] Answer Comments Full Code: Discussed Care Teams Concrete Spreader Relationship Specialty Start Date End Date Elsewhere, Pcp PCP - General Internal Medicine 08/13/23
--- OUTSIDE RECORDS SUMMARY | 2023-12-13 12:13 | XMS_ITS | Encounter Summary ---
Author Organization [facility] Address [address] [place] [address] Care Team Providers Care E/M Engineer Name Role Phone Elsewhere, Pcp Primary Care Provider Unavailabl e Encounter Details Date Type Department Care Team (Latest Contact Info) Description 12/07/2023 12:19 PM CDT - 12/07/2023 11:59 PM CDT Hospital Encounter Department of Laboratory Medicine in [place], [place] [address] [place] [phone] Burke Strauss M.D. [facility] [place] [address] Anemia; Hematuria Gross; Retention Urinary Chronic Discharge [...] a [facility] to live 11/15/2023 Sex [...] CDT Procedure visit Department of Urology in [place], [place] [address] [place] [phone] Burke Strauss M.D. [facility] [place] [address] Discharge Disposition: Home or Self Care documented [...] M.D. LAB BLOOD ADD-ON Performing Organization Address City/[facility]/ZIP Co de Phone Number [facility] 2[facility] [address] [place] [address], [facility] [place] [address] [address] [place] [address] * (ABNORMAL) Hemoglobin (12/07/2023 12:25 PM CDT) Hemoglobin 9.2(L) 13.2 - 16.6 g/dL 12/07/2023 12:33 PM CDT NPRG Blood (Blood, Venous) 12/07/2023 12:25 PM CDT 12/07/2023 12:27 PM CDT Burke Strauss M.D. LAB BLOOD ADD-ON Performing Organization Address City/[facility]/ZIP Co de Phone Number [facility] 2[facility] [address] [place] [address], [place] NPRG [place] [address] [address] [place] [address] documented in this encounter Visit Diagnoses Diagnosis Anemia Hematuria Gross Retention Urinary Chronic documented in this encounter Care Teams E/M Engineer Relationship Specialty Start Date End Date Elsewhere, Pcp PCP - General Internal Medicine 08/13/23 documented as of this encounter
--- OUTSIDE RECORDS SUMMARY | 2023-12-13 12:13 | XMS_ITS | Encounter Summary ---
Author Organization [facility] Address [address] [place] [address] Care Team Providers Care Chief Librarian Branch Or Department Name Role Phone Elsewhere, Pcp Primary Care Provider Unavailabl e Reason for Visit * Reason Comments Urinary Catheter Change Pt reports leaki ng from part of three way catheter, believes he may have nicked it with a scissors. Encounter Details Date Type Department Care Team (Late st Contact Info) Description 11/30/2023 6:44 PM CDT - 11/30/2023 8:06 PM CDT Emergency [facility] [address] [place] [phone] Carmen Cherry M.D., M.P.H. [address] [place] [phone] Leakage Of Other Urinary Catheter Initial (HCC) (Primary Dx) Discharge Disposition: Home or Self Care Social History Tobacco Use Types Packs/Day Years Used Date Smoking Tobacco: Never Smokeless Tobacco: Never [facility] Utilities Answer Date Recorded In [...] have a [facility] place to live 11/15/2023 Sex and [...] Everywhere. * Indwelling Urinary Catheter Care Adult Kpea-mg-Wpam (Samoan) documented in this encounter Medications at Time [...] CDT Procedure visit Department of Urology in [place], [place] [address] [place] [address] Burke Strauss M.D. [address] [place] [address] Discharge Disposition: Home or Self Care documented [...] documented in this encounter Care Teams Chief Librarian Branch Or Department Relationship Specialty Start Date End Date Elsewhere, Pcp PCP - General Internal Medicine 08/13/23 documented as of this encounter
--- OUTSIDE RECORDS SUMMARY | 2023-12-13 12:13 | XMS_ITS | Referral Summary ---
Author Organization [facility] Address [address] [place] [address] Care Team Providers Care Vp Analytics Name Role Phone Elsewhere, Pcp Primary Care Provider Unavailabl e Source Comments Patient records contain information from all sites at [facility]. For routine questions regarding patient records, call [phone] during business hours, M-F 8:00 AM - 5:00 PM Central Time. Record requests for emergency care only can be directed to [phone] at any time.[facility] Encounters Date Type Department Care Team Description 12/13/2023 9:15 AM CDT Nurse Only Department of Urology in [address] [phone] Burke Strauss M.D. Gray, Margaret A, L.P.N. Nurse Visit (Catheter Irrigation ) Discharge Disposition: Home or Self Care 12/08/2023 9:30 AM CDT Office Visit Department of Urology in [address] [phone] Burke Strauss M.D. Retention Urinary Chronic (Primary Dx); Anemia; Anemia In Neoplastic Disease; Fdc (Current) Anticoagulant Treatment Discharge Disposition: Home or Self Care 12/07/2023 12:19 PM CDT - 12/07/2023 11:59 PM CDT Hospital Encounter Department of Laboratory Medicine in [address] [phone] Burke Strauss M.D. Anemia; Hematuria Gross; Retention Urinary Chronic Discharge Disposition: Home or Self Care 12/07/2023 10:30 AM CDT Office Visit Department of Urology in [address] [phone] Burke Strauss M.D. Hematuria Gross (Primary Dx); Radiation Therapy Cystitis With Hematuria; Anemia; Retention Urinary Chronic Discharge Disposition: Home or Self Care 11/30/2023 6:44 PM CDT - 11/30/2023 8:06 PM CDT Emergency [facility] [address] [place] [phone] Carmen Cherry M.D., M.P.H. Leakage Of Other Urinary Catheter Initial (HCC) (Primary Dx) Discharge Disposition: Home or Self Care 11/14/2023 11:38 PM CDT - 11/17/2023 3:55 PM CDT Hospital Encounter [facility], [facility], Fifth Floor [address] [place] [address] Eliceo Guerrier M.D., Ph.D. Sylvie Álvarez M.B.BJonahSJonah, MRashawn Gauthier M.D. Burkland, Carl B, M.D. Hematuria Gross (Primary Dx) Discharge Disposition: Home-Health Care [facility] 11/15/2023 10:40 AM CDT Ancillary Procedure Department of Wound Ostomy 11/14/2023 Documentation Department of Urology in [place] [id number] [place] [address] Sowmya Aviles APRN, C.N.P., M.S.N. 11/14/2023 Intake [facility] 11/14/2023 10:44 AM CDT - 11/14/2023 10:23 PM CDT Emergency [facility] [address] [place] [phone] Sergio Raza M.D. Hematuria (Primary Dx); Malfunction Mechanical Urethral Catheter Initial (HCC) Discharge Disposition: Acute Care Hospital 11/10/2023 Clinical Communication Department of Urology in [place], [place] [address] [place] [address] Burke Strauss M.D. Oncology records request 11/09/2023 Clinical Communication Department of Urology in [place], [place] [address] [place] [phone] Burke Strauss M.D. 11/09/2023 11:00 AM CDT Office Visit Department of Urology in [place], [place] [address] [place] [phone] Burke Strauss M.D. Primary Malignant Neoplasm Of Prostate (HCC) (Primary Dx); Retention Urinary Chronic; Hematuria Gross Discharge Disposition: Home or Self Care 10/27/2023 Clinical Communication Department of Urology in [place], [place] [address] [place] [address] Burke Strauss M.D. 10/14/2023 Documentation Department of Urology in [place], [place] [address] [place] [phone] Paula Hernandez M.D. Catheter Care Plan 10/14/2023 1:00 PM CDT Procedure visit Department of Urology in [place], [place] [address] [place] [phone] Paula Hernandez M.D. Reichmann, Lynne G, R.N. Hematuria 09/27/2023 Clinical Communication Department of Urology in [place], [place] [address] [place] [phone] Paula Hernandez M.D. 09/21/2023 Clinical Communication Department of Urology in [place], [place] [address] [place] [address] Paula Hernandez M.D. 09/16/2023 Clinical Communication Department of Urology in [place], [place] [address] [place] [address] Provider, Unknown follow up questions 09/16/2023 Orders Only Department of Urology in [place], [place] [address] [place] [phone] Paula Hernandez M.D. Hematuria Gross (Primary Dx) 09/15/2023 Clinical Communication [facility] [address] [place] [address] Yasmine Loco 09/09/2023 7:24 AM CDT - 09/15/2023 5:28 PM CDT Hospital Encounter [facility], [facility], [facility], Sixth Floor [address] [place] [phone] Gerri Merrill M.D., Ph.D. Sumit Holbrook M.D. 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 11/15/2023 Overview (11/15/2023): stent placements 2017 Complication Procedure Initial 11/15/2023 Deficiency Iron 11/15/2023 Hyperlipidemia 11/15/2023 Hypertension Essential Primary 11/15/2023 Fdc Current Use Of Oth er Agents Affecting Estrogen Receptors And Estrogen Levels 11/15/2023 Presence Of Other Vascular Implants And Grafts 0 11/15/2023 Other Specified Disorders Of Bladder 11/15/2023 Other Retention Of Urine 11/15/2023 PreDiabetes 11/15/2023 Presence Of Urogenital Implants 11/15/2023 Unspecified Complication Of Genitourinary Prosthetic Device Implant And Graft Initial 11/15/2023 Inferior Vena Cava Filter 11/15/2023 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 [address] [place] [address] Discharge Disposition: Home or Self Care Medical Devices Implanted Type Area Underground Repairer Device Identifier Shelf Expiration Date Model / Serial / Lot Clp Hrzn Ti 6 Clp Lg Orng - [id number] Implanted:Qt y: 1 on 08/15/2023 by Boubacar Brock M.D. at [facility] Hardware e.g. pins/screws /rods [employer]dom[employer] [id number] 02/29/2028 [id number] / / [id number] Clp Hrzn Ti 6 Clp Lg Orng - [id number] Implanted:Qt y: 1 on 08/15/2023 by Boubacar Brock M.D. at [facility] Hardware e.g. pins/screws /rods [employer]dom[employer] [id number] 02/29/2028 [id number] / / [id number] 4 Clp Hrzn Ti 6 Clp Md Monty - [id number] Implanted:Qt y: 1 on 08/15/2023 by Boubacar Brock M.D. at [facility] Hardware e.g. pins/screws /rods [employer]dom[employer] [id number] 03/13/2028 [id number] / / [id number] 1 Clp Hrzn Ti 6 Clp Md Monty - [id number] Implanted:Qt y: 1 on 08/15/2023 by Boubacar Brock M.D. at [facility] Hardware e.g. pins/screws /rods [employer]dom[employer] [id number] 03/21/2028 [id number] / / [id number] 3 Stnt Uret Inl 6fx24 - [id number] Implanted:Qt y: 1 on 08/15/2023 by Jakob De Paz M.D. at [facility] Ureteral Stent N/A: Ureter C.[employer].Bard [id number] 11/18/2027 [id number] / / [id number] Procedures Procedure Name Priority Date/Time Associated Diagnosis [...] CDT Burke Strauss M.D. LAB BLOOD ADD-ON [facility] [address] [place] [address], [facility] [place] [address] [place] [address] * Creatinine with Estimated GFR (12/07/2023 12:25 PM CDT) Pathologist [facility] Creatinine 1.13 0.74 - 1.35 mg/dL 12/07/2023 12:49 PM CDT NPRG Estimated GFR (eGFR) 64 >=60 mL/min/BSA 12/07/2023 12:49 PM CDT NPRG Comment: Estimated GFR calculated using the 2020 CKD_EPI creatinine equation. Blood (Blood, Venous) 12/07/2023 12:25 PM CDT 12/07/2023 12:27 PM CDT Burke Strauss M.D. LAB BLOOD ADD-ON [facility] [address] [place] [address], [facility] [address] [address] * (ABNORMAL) CBC without Differential (11/17/2023 7:24 [...] CDT Candelaria Rivas D.O. LAB BLOOD ADD-ON [facility] [address] [place] [address], [facility] MKTO [facility] in [place] [address] [place] [address] * (ABNORMAL) Basic Metabolic Panel (11/17/2023 7:24 [...] D.O. LAB BLOOD ADD-ON Performing Organization Address City/[facility]/ZIP Co de Phone Number [facility] [address] [place] [address] * Glucose, POCT (11/17/2023 6:45 AM CDT) Glucose, POCT, B 107 70 - 140 mg/dL 11/17/2023 6:45 AM CDT TO Blood 11/17/2023 6:45 AM CDT 11/17/2023 7:03 AM CDT Generic Rals LAB POCT ORDERABLES- MANUAL Performing Organization Address City/[facility] Co de Phone Number [facility] [address] [place] [address] * (ABNORMAL) CBC with Differential, Blood (11/16/2023 [...] CDT Rashawn Vences M.D. LAB BLOOD ADD-ON [facility] [address] [place] [address], [place] [address] * (ABNORMAL) Comprehensive Metabolic Panel (11/16/2023 6:25 [...] CDT Rashawn Vences M.D. LAB BLOOD ADD-ON [facility] [address] [place] [address], [facility] MKTO [facility] in [place] [address] [place] [address] * Transfuse Red Blood Cells : (11/15/2023 [...] BLOOD BANK TEST ORDERABLES Performing Organization Address City/[facility]/ZIP Co de Phone Number [facility] [address] [place] [address], [facility] MKTO [facility] in [place] [address] [place] [address] * Coccyx-Wound Ostomy Image Exam (11/15/2023 10:40 [...] Organization Address City/[facility]/ZIP Co de Phone Number [facility] NA * ECG 12 Lead (11/15/2023 6:47 AM CDT) Ventricular Rate ECG/Min 65 BPM MUSE [place] Interval 144 ms MUSE QRSD Interval 76 ms MUSE QT Interval 430 ms MUSE QTC Interval 447 ms MUSE P [place] -7 degrees MUSE R [place] 9 degrees MUSE T Wave [place] 19 degrees MUSE 11/15/2023 6:47 AM CDT [...] to determine due to color interference Specific [place] SEE COMMENT 1.001 - 1.035 11/15/2023 8:03 AM CDT MKTO Comment:Unable to determine due to color interference Urobilinogen SEE COMMENT 0.2 - 1.0 mg/dL 11/15/2023 8:03 AM CDT MKTO Comment:Unable to determine due to color interference Urine (Urine, Midstream) 11/15/2023 6:25 AM CDT 11/15/2023 6:34 AM CDT Sylvie Wright M.D. LAB URI NE ORDERABLES Performing Organization Address City/[facility]/ZIP Co de Phone Number [facility] [address] [place] [address], [place] [address] * (ABNORMAL) Microscopic Automated (11/15/2023 6:25 AM [...] LAB URI NE ORDERABLES Performing Organization Address City/[facility]/ZIP Co de Phone Number [facility] [address] [place], [place] [address] [place] [address] * Bacterial Culture, Aerobic + Susceptibility, Urine (11/15/2023 6:24 AM CDT) Urine Culture Urogenital microbiota, susceptibilities not performed per laboratory criteria. 11/16/2023 11:36 AM CDT [facility] Urine (Urine, Indwelling Catheter) 11/15/2023 6:24 AM CDT 11/15/2023 9:29 AM CDT Comment:Specimen Source Site : Urine Zachery Tanner APRN C.N.P., M.S. LAB MICROBIOLOGY - GENERAL ORDERABLES [facility] [place] [address] * CT Abdomen Pelvis without IV Contrast [...] BLOOD BANK TEST ORDERABLES Performing Organization Address City/[facility] Co de Phone Number [facility] [address] [place] [address], [facility] NPRG [address] [address] * Type and Screen (with Reflex Antibody [...] BLOOD BANK TEST ORDERABLES Performing Organization Address City/[facility] Co de Phone Number [facility] [address] [place] [address], [address] [address] * Heparin Anti-Xa Assay (09/14/2023 3:19 AM [...] Sumit Holbrook M.D. LAB BLOOD NON ADD-ON [facility] [address] [place] [address], [place] DTL [facility] [address] [place] [address] * IR Nephrostomy Tube Placement Left (09/13/2023 2:20 PM CDT) Anatomical Region Laterality Modality Genito Urinary, Vascular Int erventional RST LOS, Vascular Interventional ARZ LOS, Vascular Interventional FLA LOS Left X-Ray Angiography Impressions 09/13/2023 2:33 PM CDT Left 10 [place] percutaneous nephrostomy tube placement. EP Narrative [...] tract was further dilated and a 10 [place] nephrostomy tube was placed with loop [...] sedation timewas: 9 minutes. IMPRESSION: Left 10 [place] percutaneous nephrostomy tube placement. EP Latisha [...] MICROBIOLOGY - GENERAL ORDERABLES Performing Organization Address City/[facility]/ZIP Co de Phone Number [facility] [address] [facility] [address] [place] [address] * Gram Stain (09/13/2023 2:17 PM CDT) Gram Stain No organisms seen. White blood cells, Rare 09/13/2023 9:02 PM CDT DTL Fluid (Kidney, Left) 09/13/2023 2:17 PM CDT 09/13/2023 3:56 PM CDT Comment:Specimen Source Site : Fluid Latisha Whitehead M.D. LAB MICROBIOLOGY - GENERAL ORDERABLES [facility] [address] [place] [address], [facility] [address] [place] [address] * Fungal Culture, Routine (09/13/2023 2:17 PM CDT) Fungal Culture, Routine No growth after 24 days of incubation. 10/08/2023 1:02 AM CDT DTL Fluid (Kidney, Left) 09/13/2023 2:17 PM CDT 09/13/2023 3:56 PM CDT Comment:Specimen Source Site : Fluid Latisha Whitehead M.D. LAB MICROBIOLOGY - GENERAL ORDERABLES Performing Organization Address City/[facility] Co de Phone Number [facility] [address] [place] [address] * Bacterial Culture, Anaerobic + Susceptibility (09/13/2023 2:17 PM CDT) Pathologist [facility] Bacterial Culture, Anaerobic + Susc No growth after 14 days of incubation. 09/27/2023 8:04 AM CDT DT Fluid (Kidney, Left) 09/13/2023 2:17 PM CDT 09/13/2023 3:56 PM CDT Comment:Specimen Source Site : Fluid Latisha Whitehead M.D. LAB MICROBIOLOGY - GENERAL ORDERABLES Performing Organization Address [facility] Co de Phone Number [facility] [address] [place] [address] * APTT (Activated Partial Thromboplastin Time) (09/13/2023 5:56 AM CDT) Only the most recent of2 resultswithin the time period is included. Pathologist [facility] Activated Partial Thrombopl Time, P 35 25 - 37 sec 09/13/2023 7:14 AM CDT DTL Blood (Blood, Venous) 09/13/2023 5:56 AM CDT 09/13/2023 6:53 AM CDT Sumit Holbrook M.D. LAB BLOOD ADD-ON [facility] [address] [place] [address], [place] DTL [facility] [address] [place] [address] * NM Kidney DMSA (09/12/2023 12:21 PM [...] Advance Directives For more information, please contact: [phone] * Full Code (Latest Code Status on [...] Answer Comments Full Code: Discussed Care Teams Vp Analytics Relationship Specialty Start Date End Date Elsewhere, Pcp PCP - General Internal Medicine 08/13/23
--- OUTSIDE RECORDS SUMMARY | 2023-12-13 12:13 | XMS_ITS | Encounter Summary ---
Author Organization [facility] Address [address] [place] [address] Care Team Providers Care Stockroom Helper Name Role Phone Elsewhere, Pcp Primary Care Provider Unavailabl e Reason for Referral * Outpatient (Routine) - Closed Specialty Diagnoses / Procedures Referred By Leyla rosenthal Referred To Contact Urology Diagnoses Retention Urinary Chronic Burke Strauss M.D. [address] [place] [address] [facility] Referral ID Status Reason Start Date Expiration Date Visits Re quested Visits Authorized [id number] Closed 12/08/2023 06/08/2025 1 1 Reason for Visit * Reason Comments Follow-up Irrigation of cathet er * Outpatient (Routine) - Closed Specialty Diagnoses / Procedures Referred By Leyla rosenthal Referred To Contact Urology Burke Strauss M.D. [address] [place] [phone] [facility] Referral ID Status Reason Start Date Expiration Date Visits Re quested Visits Authorized [id number] Closed 12/07/2023 06/07/2025 1 1 Encounter Details Date Type Department Care Team (Latest Contact Info) Description 12/08/2023 9:30 AM CDT Office Visit Department of Urology in [place], [place] [address] [place] [phone] Burke Strauss M.D. 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 (Current) Anticoagulant Treatment Discharge Disposition: Home or Self Care Social History Tobacco Use Types Packs/Day Years Used Date Smoking Tobacco: Never Smokeless Tobacco: Never [facility] Utilities Answer Date Recorded In the past 12 months has [facility] [employer], gas, oil, or water [employer] threatened to shut off services in [...] have a [facility] place to live 11/15/2023 Sex and Gender Information Value Date Recorded Sex Assigned at Not on file Gender Identity Not on file Sexual Orientation Not on file documented as of this encounter Progress Notes * Burke Strauss M.D. - 12/08/2023 9:30 AM CDT SUBJECTIVE CHIEF COMPLAINT/REASON FOR VISIT Chief Complaint Patient presents with Follow-up Irrigation of catheter HISTORY OF PRESENT ILLNESS Patient presents for follow-up on gross hematuria, he was seen yesterday and had the bladder irrigated free of clots. 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 He has since stopped his Plavix and confirmed with his PCPthat he will no longer be taking this. 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 Since yesterday, he reports continued passage of light pink urine, however, significantly improved compared to prior to the irrigation procedure yesterday. He is having no passage of clots. No suprapubic pain. No fevers or other signs of infection. The following portions of the patient's history were reviewed and updated as appropriate: allergies, current medications, family history, medical history, social history, surgical history, and problem list. REVIEW OF SYSTEMS REVIEW OF SYSTEMS OBJECTIVE There were no vitals filed for this visit. PHYSICAL EXAM URO Physical Exam Patient appears well, comfortable Hemoglobin: 9.2 on 12/07/2023 (10.4 on 11/30/2023) ASSESSMENT / PLAN 1. Retention Urinary Chronic 2. 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 Assisted (Current) Anticoagulant Treatment Orders Placed This Encounter Procedures Urology nurse visit (clinic) Bladder was irrigated with approximately 1000 cc of normal saline and urine turned from a light pink to clear by the end of irrigation. Patient tolerated the procedure well, however, did have leakageof urine around the catheter with instillation of the saline. Towards the end of the procedure, catheter was manipulated to ensure that it was continuing to drain urine adequately. Patient had a slight decrease in his hemoglobin over the past week, however, is currently at adequate levels with evidence of minimal bleeding at this time. Patient will return early next week for a repeat catheter irrigation if he is having any signs of hematuria. Nurse visit appointment has been made. Should he develop more significant hematuria, including the presence of clots, he should seek medical attention as soon as possible. Signed by: Burke Strauss M.D. 12/12/2023 1:47 PM CDT documented in this encounter Plan of Treatment Upcoming Encounters Date Type Department Care Team (Latest Contact Info) Description 01/11/2024 9:00 AM CDT Procedure visit Department of Urology in [place], [place] [address] [place] [phone] Burke Strauss M.D. [address] [place] [address] Discharge Disposition: Home or Self Care Scheduled Referrals Name Type Priority Associated Diagnoses Orde r Schedule Urology nurse visit (clinic) Outpatient Referral Routine Retention Urinary Chronic Expected: 12/13/2023, Expires: 03/09/2025 documented as of this encounter Visit Diagnoses Diagnosis Retention Urinary Chronic- Primary Anemia Anemia In Neoplastic Disease Bag Shaker (Current) Anticoagulant Treatment documented in this encounter Care Teams Stockroom Helper Relationship Specialty Start Date End Date Elsewhere, Pcp PCP - General Internal Medicine 08/13/23 documented as of this encounter
--- OUTSIDE RECORDS SUMMARY | 2023-12-13 12:13 | XMS_ITS | Encounter Summary ---
Author Organization [facility] Address [address] [place] [address] Care Team Providers Care E Learning Coordinator Name Role Phone Elsewhere, Pcp Primary Care Provider Unavailabl e Reason for Referral * Outpatient (Routine) - Authorized Specialty Diagnoses / Procedures Referred By Contac t Referred To Contact Diagnoses Hematuria Gabe Neal M.D. [address] [place] [address] Referral ID Status Reason Start Date Expiration Date V isits Requested Visits Authorized [id number] Authorized 11/17/2023 05/18/2025 1 1 Encounter Details Date Type Department Care Team (Late st Contact Info) Description 11/14/2023 11:38 PM CDT - 11/17/2023 3:55 PM CDT Hospital Encounter [facility], Fifth Floor [address] [place] [address] Eliceo Guerrier M.D., Ph.D. [address] [place] [address] Sylvie Álvarez M.B.B.S., M.D. [address] [place] [address] Rashawn Vences M.D. [address] [place] [address] Gabe Buckley M.D. [address] [place] [address] Smith Peter (Primary Dx) Discharge Disposition: Home-Health Care Svc Social History Tobacco Use Types Packs/Day Years Used Date Smoking Tobacco: Never Smokeless Tobacco: Never [facility] Utilities Answer Date Recorded In the past 12 months has [facility] [employer], gas, oil, or water [employer] threatened to shut off services in your [...] a [facility] to [facility] 11/15/2023 Sex and Gender [...] DISCHARGE SUMMARY BRIEF OVERVIEW Discharge Hospital: Hospital: [facility] Discharge Provider: Gabe Buckley M.D. Primary Care Providers: Dr. 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 Cesar Mccollum to discuss restarting OUTPATIENT FOLLOW UP Scheduled Appointments 12/07/2023 10:[address] [facility] MULTI SPECIALTY NURSE 01 NPNC; URO NURSE [...] filter and chronic pressure wounds presented to [facility] 11/14/23 gross hematuria including around his indwelling [...] discussed with Dr. Gabe Rivas DO. PGY-1 [facility] Family Medicine Residency [place] Associated attestation - Gabe Buckley M.D. - [...] to [facility] 11/14/2023 due to Hematuria Gross [R31.0]. Patient was accompanied by son, Kar. This tag writer finalized arrangements for resumption of home health care services. 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 INTERVENTION This tag writer sent a service reconnection, including resumption of care order, to resumption of home health care services to [facility] as the fax number matches the fax [...] Muscle Mass: Normal Fluid Accumulation: Absent Reduced [place] Strength: Not applicable This is in the [...] to [facility] 11/14/2023 due to Hematuria Gross [R31.0]. Patient was accompanied by daughter (Mindy) and son (Kar). This tag writer continues to assist in home health care reconnection. 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 INTERVENTION Patient's daughter, Mindy, provided this tag writer with contact information for Doreen Javier, nurse healthcare recruiter for [facility]; [phone]. This tag writer left Doreen a voicemail, requesting a [...] bag -monitor CMP for kidney function -continue DIRECTOR OF PROFESSIONAL SERVICES tamsulosin -continue DIRECTOR OF PROFESSIONAL SERVICES enzalutamide -urine culture, per urology # Coronary artery disease without angina pectoris, status post 6 stents # History of DVTs, status post IVC filter # Hyperlipidemia Is on both Plavix and Xarelto at home. -start Xarelto 11/16/2023 so response can be monitored while hospitalized -continue DIRECTOR OF PROFESSIONAL SERVICES amlodipine -continue DIRECTOR OF PROFESSIONAL SERVICES rosuvastatin -continue DIRECTOR OF PROFESSIONAL SERVICES metoprolol # Chronic Pressure Wound, Coccyx -continue wound care -offloading as much as possible Non-severe (moderate) Malnutrition (11/15/23) The patient meets the ASPEN Criteria of malnutrition based on: Energy Intake: Less than 75% of estimated energy requirement for greater than or equal to 1 month Interpretation of Weight Loss: 7.5% 3 months Body Fat: Normal Muscle Mass: Normal Fluid Accumulation: Absent Reduced [place] Strength: Not applicable This is in the [...] Gabe Buckley M.D. Candelaria Rivas DO. PGY-1 [facility] Family Medicine Residency [place] Associated attestation - Gbae Buckley M.D. - 11/16/2023 6:25 PM CDT I saw and evaluated the patient, participating in the henderson portions of the service. I reviewed the resident/fellow???s note. I agree with the resident/fellow???s findings and plan. 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 - [...] recommendations -monitor CMP for kidney function -continue DIRECTOR OF PROFESSIONAL SERVICES tamsulosin -continue DIRECTOR OF PROFESSIONAL SERVICES enzalutamide -urine culture, per urology # Coronary artery disease without angina pectoris, status post 6 stents # History of DVTs, status post IVC filter # Hyperlipidemia Is on both Plavix and Xarelto at home. Urology recommendations on restarting blood thinners. -may consider restarting one or both on 11/16/2023 so response can be monitored while hospitalized -continue DIRECTOR OF PROFESSIONAL SERVICES amlodipine -continue DIRECTOR OF PROFESSIONAL SERVICES rosuvastatin -continue DIRECTOR OF PROFESSIONAL SERVICES metoprolol # Chronic Pressure Wound, Coccyx -continue wound care -offloading as much as possible Non-severe (moderate) Malnutrition (11/15/23) The patient meets the ASPEN Criteria of malnutrition based on: Energy Intake: Less than 75% of estimated energy requirement for greater than or equal to 1 month Interpretation of Weight Loss: 7.5% 3 months Body Fat: Normal Muscle Mass: Normal Fluid Accumulation: Absent Reduced [place] Strength: Not applicable This is in the [...] Rashawn Vences M.D. Candelaria Rivas DO. PGY-1 [facility] Family Medicine Residency [place] Associated attestation - Rashawn Vences M.D. - [...] other issues. He showed up in the [facility] room yesterday with complaints of a [...] and visits for hematuria. Patient presented at [facility] yesterday because of bleeding around his [place] [...] vomiting, no abdominal pain. Patient presented at [facility] where urology was contacted, manual bladder irrigation [...] anemia, hemoglobin now 8.2. Patient presented to [facility] ED because of bleeding around his [place] catheter. At [facility], patient had manual bladder irrigation with normal [...] CDTAssociated Order(s): Dietitian consult (hospital); Dietitian Consult ([facility]) Dietitian Consult (Hospital) Referring Provider: Bolivar Carvalho [...] had lost 28lbs during his stay in [place] as he was NPO for12 days then [...] Muscle Mass: Normal Fluid Accumulation: Absent Reduced [place] Strength: Not applicable This is in the [...] 84.1 kg BMI (Calculated): 26.6 kg/m?? % [place] Body Weight: 111 % IBW Adjusted Body [...] assessment, Discharge Planning, Other (comment) Primary Language: Peruvian Whitewasher Services Used: No Sexuality/Pronoun: / Person(s) present [...] Neoplastic Disease #4 Atherosclerotic Heart Disease Of [place] Coronary Artery Without Angina Pectoris #5 Deficiency Iron #6 Hyperlipidemia #7 Hypertension Essential Primary #8 Community Ambassador Current Use Of Other Agents Affecting Estrogen Receptors And Estrogen Levels #9 Radiation Therapy Proctitis #10 Inferior Vena Cava Filter #11 Community Ambassador (Current) Anticoagulant Treatment Social History Marital Status: Family / Household: Lives with and son, Gavin. Has another son (Kar) and a daughter (Mindy). Support System: spouse and children Spirituality/Mormon/Cultural Factors: None History: No Highest Level of [...] Cooperative, Oriented Communication: Talks, Understands speaking, Understands Peruvian Shopping: Appropriate to age/development Medication Management: Independent Housekeeping: Appropriate to age/development Meal Prep: Appropriate to age/development Assistive Devices: Eyeglasses, Hearing aid(s) Agency Name: [facility] Provided: senior living once weekly for wound care, PT, social work, DarwinRN healthcare recruiter Transportation: Support from family Baseline Services/Resources Primary care clinic and provider: ELSEWHERE, PCP Anticipated Needs Functional Status: Tasks appropriate to patient's age/development, Transportation use (drive car, use taxi/bus) Assistive Devices: Eyeglasses, Hearing aid(s) Services/Resources: Home health Agency Name: [facility] Provided: senior living once weekly for wound care, PT, social work, Makenzie healthcare recruiter Does the patient need discharge transport arranged?: No Anticipated Discharge Destination: Home-Health Care Svc OBJECTIVE Substance Abuse no symptoms Mental Health Mental Health History: Patient reports no mental health history Patient reports no current concerns Mental Health Treatment History No history of Psychiatric Treatment noted Suicide Risk and Safety Risk Assessment: C-SSRS Short Version: [place] Suicide Severity Rating Scale (Do this one [...] a wound clinic the other day. This tag writer spoke to intake with [facility] however the only information provided is that patient is served by the [facility] location and receives halfway, physical therapy, and social work and the fax number for discharge paperwork was provided. Interventions Psychosocial assessment completed. Provided supportive services. Provided education regarding the role of social work. Plan It is anticipated patient will return home with family and resume services through [facility]. Martha Gardiner 11/15/2023 * Jerri Toledo R.N., [place], [facility] - 11/15/2023 10:54 AM CDTAssociated Order(s): [...] and visits for hematuria. Patient presented at [facility] yesterday because of bleeding around his [place] [...] vomiting, no abdominal pain. Patient presented at [facility] where urology was contacted, manual bladder irrigation with normal saline was performed, and patient was started on CBI. Patient transferred to [place] for further management. WOUND ASSESSMENT: Wound Type: Pressure Injury IP Pressure Injury Staging: Stage 3 Wound Location: Coccyx Wound Orientation: Mid Wound Tunnel/Induration: Length 1 cm, Width 0.5 cm, and Depth 0.3 cm. Wound Bed Tissue: Red and Granulation tissue 100% Leslee-Wound Skin: Blanchable erythema, Maceration, and [place] PLAN: COCCYX: DAILY 1. Cleanse wound with [...] limit sliding down in chair. Please contact [facility] RNs if you have any question or concerns regarding wound care. Jerri Toledo R.N., LYNNE at [phone] Starla Méndez R.N., CWCN at [phone] * Zachery Tanner, ARUN, C.N.P., M.S. - [...] follows with Medical Oncology Dr. Tan in [place], [place]. Right hydronephrosis and right atrophic kidney [...] 08/30. Currently undergoing outpatient hyperbaric O2 in [facility]. Mr. Vega currently admitted to [facility] in the setting of recurrent gross hematuria. He wasseen in evaluation at [facility] Emergency Department in the setting of [...] in comparison to historical imaging. Ultimately [address] catheter was placed and patient was hand irrigated and initiated on CBI.Patient was transferred to [facility] for ongoing management. Urinalysis 11/15/2023 with greater [...] undergoing outpatient HBO (hyperbaric oxygenation therapy) in [facility]. Recommend to continue HBO in the [...] hematuria. Outpatient appointment scheduled on 12/07/2023 in [facility] with Urology. Could consider discussion about catheter removal/formal voiding trial in the outpatient setting as to limit catheter irritation/potential infection risk contributing to hematuria. Significant pyuria on urinalysis in the setting of his gross hematuria would recommend urine culture. 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 Tan in [place], [place]. Per subjective report today undetectable PSA. [...] discussed with Dr. Valdez. Zachery Tanner APRN BEAM DEPARTMENT SUPERVISOR Associated attestation - Manav Valdez M.D. - [...] Summary: Pt is a direct admit from [facility] ED. He has chronic indwelling catheter, with prostate cancer history. He noticed urine was bloody red. While being seen in [facility], 3 waycatheter was inserted and CBI started. [...] filter and chronic pressure wounds presented to [facility] 11/14/23 gross hematuria including around his indwelling [...] Procedure visit Department of Urology in [address] [id number] Burke Strauss M.D. [address] [place] [address] Discharge Disposition: Home or Self Care Pending Results Name Type Priority Associated Diagnoses Date /Time Prepare Red Blood Cells, 1 Units Blood Bank Routine 11/14/2023 11:09 AM CDT Scheduled Referrals Name Type Priority Associated Diagnoses Orde r Schedule Non-[facility] referral Outpatient Referral Routine Hematuria Gross Ordered: [...] D.O. LAB BLOOD ADD-ON Performing Organization Address City/[facility]/ZIP Co de Phone Number [facility] [address] [place] [address], [place] [address] * (ABNORMAL) Basic Metabolic Panel (11/17/2023 7:24 [...] CDT Candelaria Rivas D.O. LAB BLOOD ADD-ON [facility] [address] [place] [address], [facility] [address] [place] [address] * Glucose, POCT (11/17/2023 6:45 AM CDT) Glucose, POCT, B 107 70 - 140 mg/dL 11/17/2023 6:45 AM CDT [facility]TO Blood 11/17/2023 6:45 AM CDT 11/17/2023 7:03 AM CDT Generic Rals LAB POCT ORDERABLES- MANUAL [facility] [address] [place] [address], [address] [address] * (ABNORMAL) Hemoglobin (11/16/2023 4:43 PM CDT) Hemoglobin 9.2(L) 13.2 - 16.6 g/dL 11/16/2023 5:13 PM CDT MKTO Blood (Blood, Venous) 11/16/2023 4:43 PM CDT 11/16/2023 5:10 PM CDT Madelyn Cesar D.O. LAB BLOOD ADD-ON [facility] [address] [place] [address], [place] [address] * (ABNORMAL) Comprehensive Metabolic Panel (11/16/2023 6:25 [...] CDT Rashawn Vences M.D. LAB BLOOD ADD-ON [facility] [address] [place] [address], [facility] MKTO [facility] in [place] [address] [place] [address] * (ABNORMAL) CBC with Differential, Blood (11/16/2023 6:25 AM CDT) [facility] Signature Hemoglobin 9.4(L) 13.2 - 16.6 g/dL 11/16/2023 [...] CDT Rashawn Vences M.D. LAB BLOOD ADD-ON [facility] [address] [place] [address], [facility] MKTO [facility] [place] [address] [place] [address] * Transfuse Red Blood Cells : (11/15/2023 [...] Sylvie Wright M.D. LAB BLO OD ADD-ON [facility] [address] [place] [address], [facility] MKTO [facility] [place] [address] * (ABNORMAL) CBC with Differential, Blood (11/15/2023 [...] Sylvie Wright M.D. LAB BLO OD ADD-ON [facility] [address] [place] [address], [facility] MKTO [facility] [place] [address] [place] [address] * ECG 12 Lead (11/15/2023 6:47 AM CDT) Ventricular Rate ECG/Min 65 BPM MUSE VA Interval 144 ms MUSE QRSD Interval 76 ms MUSE QT Interval 430 ms MUSE QTC Interval 447 ms MUSE P [place] -7 degrees MUSE R [place] 9 degrees MUSE T Wave [place] 19 degrees MUSE 11/15/2023 6:47 AM CDT [...] LAB URI NE ORDERABLES Performing Organization Address City/[facility] Co de Phone Number [facility] [address] [place] [address], [facility] MKTO [facility] in [address] [address] * (ABNORMAL) Urinalysis with Microscopic if Indicated [...] to determine due to color interference Specific [place] SEE COMMENT 1.001 - 1.035 11/15/2023 8:03 AM CDT MKTO Comment:Unable to determine due to color interference Urobilinogen SEE COMMENT 0.2 - 1.0 mg/dL 11/15/2023 8:03 AM CDT MKTO Comment:Unable to determine due to color interference Urine (Urine, Midstream) 11/15/2023 6:25 AM CDT 11/15/2023 6:34 AM CDT Sylvie Wright M.D. LAB URI NE ORDERABLES [facility] [address] [place] [address], [facility] in [place] [address] [place] [address] * Bacterial Culture, Aerobic + Susceptibility, Urine (11/15/2023 6:24 AM CDT) Urine Culture Urogenital microbiota, susceptibilities not performed per laboratory criteria. 11/16/2023 11:36 AM CDT MKTO Urine (Urine, Indwelling Catheter) 11/15/2023 6:24 AM CDT 11/15/2023 9:29 AM CDT Comment:Specimen Source Site : Urine Zachery Tanner APRN, C.N.P., M.S. LAB MICROBIOLOGY - GENERAL ORDERABLES [facility] [address] [place] [address], [facility] MKTO [facility] [place] [address] [place] [address] documented in this encounter Visit Diagnoses Diagnosis Hematuria Gross- Primary Hematuria Gross Primary Malignant Neoplasm Of Prostate (HCC) Anemia In Neoplastic Disease Senior Living Current Use Of Other Agents Affecting Estrogen Receptors And Estrogen Levels Hypertension Essential Primary Hyperlipidemia Deficiency Iron Radiation Therapy Proctitis Atherosclerotic Heart Disease Of [place] Coronary Artery Without Angina Pectoris Inferior Vena Cava Filter Community Ambassador (Current) Anticoagulant Treatment documented in this encounter [...] R.N.) documented in this encounter Care Teams E Learning Coordinator Relationship Specialty Start Date End Date Elsewhere, Pcp PCP - General Internal Medicine 08/13/23 documented as of this encounter
--- OUTSIDE RECORDS SUMMARY | 2023-12-13 12:13 | XMS_ITS | Encounter Summary ---
Author Organization [facility] Address [address] [place] [address] Care Team Providers Care Structural Shop Helper Name Role Phone Elsewhere, Pcp Primary Care Provider Unavailabl e Reason for Referral * Outpatient (Routine) - Closed Specialty Diagnoses / Procedures Referred By Leyla rosenthal Referred To Contact Burke Lucero M.D. [address] [place] [phone] [facility] Referral ID Status Reason Start Date Expiration Date Visits Re quested Visits Authorized [id number] Closed 12/07/2023 06/07/2025 1 1 Reason for Visit * Reason Comments Follow-up Discuss jon cathet er * Outpatient (Routine) - Closed Specialty Diagnoses / Procedures Referred By Leyla rosenthal Referred To Contact Burke Lucero M.D. [address] [place] [phone] [facility] Referral ID Status Reason Start Date Expiration Date Visits Re quested Visits Authorized [id number] Closed 11/09/2023 05/10/2025 1 1 Encounter Details Date Type Department Care Team (Late st Contact Info) Description 12/07/2023 10:30 AM CDT Office Visit Department of Urology in [place], [place] [address] [place] [phone] Burke Staruss M.D. [address] [place] [phone] Hematuria Gross (Primary Dx); Radiation Therapy Cystitis With Hematuria; Anemia; Retention Urinary Chronic Discharge Disposition: Home or Self Care Social History Tobacco Use Types Packs/Day Years Used Date Smoking Tobacco: Never Smokeless Tobacco: Never [facility] Utilities Answer Date Recorded In the past 12 months has [facility] [employer], gas, oil, or water [employer] threatened to shut off services in your [...] living situation today? I have a [facility] place to live 11/15/2023 Sex and Gender Information Value Date Recorded Sex Assigned at Not on file Gender Identity Not on file Sexual Orientation Not on file documented as of this encounter Progress Notes * Keli Denton, RJonahN. - 12/07/2023 10:30 AM CDT Patient here for scheduled appointment with Dr. Strauss after catheter placed in the ER due to catheter possibly leaking on 11-30-23. Patient has had blood and clots in current catheter and has been leaking around catheter site with little output per patient. Order received from Dr. Strauss to irrigate current 3-way 22 Fr. Silicone Catheter until clear. RN was able to irrigate with 50 ml Sterile Ir rigation fluid pushing in slowly but difficulty with getting return back out and clots noted. Dr. Long and Dr. Strauss assisted with irrigating catheter getting clots out until pink in color. Instructed to change leg bag and while getting supplies together RN mistakenly grabbed sterile scissors instead of sterile clamp and cut catheter tubing. Updated Dr. Strauss and order received to place new 22 Fr. Silicone 3-way catheter. Explained to patient and patient in agreement with plan of care. After performing leslee care and prepping the patient with betadine and utilizing sterile technique anew 22 Fr. (Ref # [id number]) Silicone 3- way catheter placed with assistance from 2nd RNErika Catheter placed and irrigated with 30 ml Sterile Irrigation fluid with pink return. Balloon filled with 30 ml saline and catheter then secured with leg strap to right upper thigh. New leg bag securedto right lower leg with new straps. Catheter noted to be draining into drainage bag and no clots noted. Patient tolerated procedure well. Will have HGB drawn today and will return to clinic tomorrow, 12/08/23 for follow up with Dr. Strauss and possible catheter irrigation. Patient and son both verbalized understanding. * Burke Strauss M.D. - 12/07/2023 10:30 AM CDT SUBJECTIVE CHIEF COMPLAINT/REASON FOR VISIT Chief Complaint Patient presents with Follow-up Discuss jon catheter HISTORY OF PRESENT ILLNESS Ongoing issues with gross hematuria, following recent hospitalization. He restarted his Plavix after discussion of the advantages and disadvantages with regard to cardiovascular protection as well aspotential risk for recurrent bleeding. Unfortunately, after a few days back on the Plavix, he started bleeding again and this has continued. He has since discontinued the Plavix but remains on Xarelto. He has known radiation cystitis and radiation proctitis and is undergoing treatment with hyperbaric oxygen therapy. Patient was passing large clots yesterday and today, both in the catheter as well as around the catheter and coming out through the tip of his penis. 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 That continues to drain clear urine. No signs of infection, fever, other worsening problems. The following portions of the patient's history were reviewed and updated as appropriate: allergies, current medications, family history, medical history, social history, surgical history, and problem list. REVIEW OF SYSTEMS REVIEW OF SYSTEMS OBJECTIVE There were no vitals filed for this visit. PHYSICAL EXAM URO Physical Exam ASSESSMENT / PLAN 1. Hematuria Gross 2. Radiation Therapy Cystitis With Hematuria 3. Anemia 4. Retention Urinary Chronic Orders Placed This Encounter Procedures Hemoglobin Creatinine with Estimated GFR Urology office visit (clinic) General Clots were broken up with irrigation and ultimately was able to achieve return of urine of a light pink color, without evidence of persistent clots. His catheter was replaced today after the catheter tubing was inadvertently cut. He currently has a22 Spanish silicone three-way catheter. He will return tomorrow for reassessment, further irrigation if needed. If he continues to have formation of large clots, we discussed the possibility of removing the Jon catheter entirely. It may be that the catheter is contributing to ongoing irritation of his bladder and radiation cystitis and removal of the catheter may result in improvement in bleeding. On the other hand, if he continues to form clots, this may result in his bladder essentially becoming nonfunctional, and he would then instead rely on his left nephrostomy tube for drainage of his remaining functional kidney. We discussed that this does risk rupture of the bladder again, however, may be a solution to his ongoing bleeding issues from radiation cystitis. He will continue on his hyperbaric oxygen therapy, next appointment tomorrow at 1:00 p.m.. Hemoglobin of 9.2 is adequate, decreased from 10.4 on 11/30/2023. Creatinine is relatively stable at 1.13. Signed by: Burke Strauss M.D. 12/12/2023 8:22 PM CDT documented in this encounter Plan of Treatment Upcoming Encounters Date Type Department Care Team (Latest Contact Info) Description 01/11/2024 9:00 AM CDT Procedure visit Department of Urology in [place], [place] [address] [place] [phone] Burke Strauss M.D. [address] [place] [address] Discharge Disposition: Home or Self Care Scheduled [...] CDT Burke Strauss M.D. LAB BLOOD ADD-ON [facility] [address] [place] [address], [place] [facility] [place] [address] [address] [place] [address] * (ABNORMAL) Hemoglobin (12/07/2023 12:25 PM CDT) Hemoglobin 9.2(L) 13.2 - 16.6 g/dL 12/07/2023 12:33 PM CDT [facility] Blood (Blood, Venous) 12/07/2023 12:25 PM CDT 12/07/2023 12:27 PM CDT Burke Strauss M.D. LAB BLOOD ADD-ON [facility] [address] [place] [address], [place] [facility] [place] [address] [address] [place] [address] documented in this encounter Visit Diagnoses Diagnosis Hematuria Gross- Primary Radiation Therapy Cystitis With Hematuria Anemia Retention Urinary Chronic documented in this encounter Care Teams Structural Shop Helper Relationship Specialty Start Date End Date Elsewhere, Pcp PCP - General Internal Medicine 08/13/23 documented as of this encounter
--- OUTSIDE RECORDS SUMMARY | 2023-12-13 12:13 | XMS_ITS | Encounter Summary ---
Author Organization [facility] Address [address] [place] [address] Care Team Providers Care Blow Mold Technician Name Role Phone Elsewhere, Pcp Primary Care Provider Unavailabl e Reason for Visit * Reason Comments Nurse Visit Catheter Irrigation * Outpatient (Routine) - Closed Specialty Diagnoses / Procedures Referred By Leyla t Referred To Contact Urology Diagnoses Retention Urinary Chronic Burke Strauss M.D. [address] [place] [phone] [facility] Referral ID Status Reason Start Date Expiration Date Visits Re quested Visits Authorized [id number] Closed 12/08/2023 06/08/2025 1 1 Encounter Details Date Type Department Care Team (Late st Contact Info) Description 12/13/2023 9:15 AM CDT Nurse Only Department of Urology in [place], [place] [address] [place] [phone] Burke Strauss M.D. [address] [place] [address] Latonia Dumont L.P.NJonah Nurse Visit (Catheter Irrigation ) Discharge Disposition: Home or Self Care Social [...] [facility] 11/15/2023 Sex and Gender Information Value Date Recorded Sex Assigned at Not on file Gender Identity Not on file Sexual Orientation Not on file documented as of this encounter Progress Notes * Latonia Dumont L.P.N. - 12/13/2023 9:15 AM CDT Patient returned to clinic for repeat catheter irrigation, if necessary. Patient and son, Kar, state that the catheter has been clear of any blood or clotting. Today, catheter bag looks clear of clots and urine is straw colored. They state that it has been clear urine since coming in for last 's irrigation. They were not sure if they should come in today but wanted it to be looked at. Noirrigation was necessary today. Patient was sent home with his son. A message will be sent to Dr. Strauss to see if patient is to see him for a follow up and patient is aware that he may be called toschedule an appointment. documented in this encounter Plan of Treatment Upcoming Encounters Date Type Department Care Team (Latest Contact Info) Description 01/11/2024 9:00 AM CDT Procedure visit Department of Urology in [place], [place] [address] [place] [address] Burke Strauss M.D. [address] [place] [phone] Discharge Disposition: Home or Self Care documented as of this encounter Visit Diagnoses Diagnosis Retention Urinary Chronic documented in this encounter Care Teams Blow Mold Technician Relationship Specialty Start Date End Date Elsewhere, Pcp PCP - General Internal Medicine 08/13/23 documented as of this encounter
--- OUTSIDE RECORDS SUMMARY | 2023-12-13 12:13 | XMS_ITS ---
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/2023 Overview (11/15/2023): stent placements 2017 Complication Procedure Initial 11/15/2023 Deficiency Iron 11/15/2023 Hyperlipidemia 11/15/2023 Hypertension Essential Primary 11/15/2023 Residential Current Use Of Oth er Agents Affecting Estrogen Receptors And Estrogen Levels 11/15/2023 Presence Of Other Vascular Implants And Grafts 0 11/15/2023 Other Specified Disorders Of Bladder 11/15/2023 Other Retention Of Urine 11/15/2023 PreDiabetes 11/15/2023 Presence Of Urogenital Implants 11/15/2023 Unspecified Complication Of Genitourinary Prosthetic Device Implant And Graft Initial 11/15/2023 Inferior Vena Cava Filter 11/15/2023 Woven Label Designer (Current) Anticoagulant Treatment 09/2023 Presence Of Other [...] On Elapsed Days Session Dose Total Dose [id number] 04/28/2020 32 300 cGy 6,000 cGy Lifetime Dose Tracking * Chemical Lifetime Dose Automatic Entry Manual Entr y Radiation 20.4 mGy 20.4 mGy 0 mGy Fluoro Time 2.005 minutes 2.005 minutes 0 minutes DAP (uGy-m2) 479.6 uGy-m2 479.6 uGy-m2 0 uGy-m2 Resolved Problems Problem Noted Date Diagnosed Date Resolved Date Hematuria Gross 08/31/2023 11/17/2023
--- OUTSIDE RECORDS SUMMARY | 2023-12-13 12:13 | XMS_ITS ---
Author Organization [facility] Address [address] [place] [address] Care Team Providers Care Grill Cook Name Role Phone Unavailable Unavailable Unavailable Surgery Details Not on file Complications Check Surgery Details section. Procedure Estimated Blood Loss Check Surgery Details section. Procedure Findings Check Surgery Details section. Procedure Specimens Taken Check Surgery Details section.
--- OUTSIDE RECORDS SUMMARY | 2023-12-13 12:14 | XMS_ITS | Encounter Summary ---
Author Organization [facility] Address [address] [place] [address] Care Team Providers Care Cylinder Worker Name Role Phone Elsewhere, Pcp Primary Care Provider Unavailabl e Encounter Details Date Type Department Care Team (Late st Contact Info) Description 10/27/2023 Clinical Communication Department of Urology in [place], [place] [address] [place] [phone] Burke Strauss M.D. [address] [place] [address] Social History Tobacco Use Types Packs/Day Years Used Date Smoking Tobacco: Never Smokeless Tobacco: Never [facility] Utilities Answer Date Recorded In the past 12 months has e electric, gas, oil, or water [employer] threatened to shut off services in [...] your living situation today? I have a [facility] place to live 09/09/2023 Sex and [...] 2:15 PM CDT Patient follows urology in [place] but would like to transfer his care to [place] as it is closer to home. It looks like for Hematuria. Is this patient ok to see you? He has a catheter in and will need cath changes going forward. documented in this encounter Plan of Treatment Upcoming Encounters Date Type Department Care Team (Latest Contact Info) Description 01/11/2024 9:00 AM CDT Procedure visit Department of Urology in [place], [place] [address] [place] [phone] Burke Strauss M.D. [facility] [place] [phone] Discharge Disposition: Home or Self Care documented as of this encounter Visit Diagnoses Not on filedocumented in this encounter Care Teams Cylinder Worker Relationship Specialty Start Date End Date Elsewhere, Pcp PCP - General Internal Medicine 08/13/23 documented as of this encounter
--- OUTSIDE RECORDS SUMMARY | 2023-12-13 12:14 | XMS_ITS | Encounter Summary ---
Author Organization [facility] Address [address] [place] [address] Care Team Providers Care Dragger Name Role Phone Elsewhere, Pcp Primary Care Provider Unavailabl e Encounter Details Date Type Department Care Team (Late st Contact Info) Description 09/27/2023 Clinical Communication Department of Urology in [place], [place] [address] [place] [address] Paula Hernandez M.D. [address] [place] [address] Social History Tobacco Use Types Packs/Day Years Used Date Smoking Tobacco: Never Smokeless Tobacco: Never [facility] Utilities Answer Date Recorded In the past 12 months has [facility] [employer], gas, oil, or water [employer] threatened to shut off services in your [...] CDT Procedure visit Department of Urology in [address] [phone] Burke Strauss M.D. [address] [place] [phone] Discharge Disposition: Home or Self Care documented as of this encounter Visit Diagnoses Not on filedocumented in this encounter Care Teams Dragger Relationship Specialty Start Date End Date Elsewhere, Pcp PCP - General Internal Medicine 08/13/23 documented as of this encounter
--- OUTSIDE RECORDS SUMMARY | 2023-12-13 12:14 | XMS_ITS | Encounter Summary ---
Author Organization [facility] Address [address] [place] [address] Care Team Providers Care Explosive Ordnance Disposal Specialist Name Role Phone Elsewhere, Pcp Primary Care Provider Unavailabl e Reason for Visit * Reason Comments Catheter Care Plan Encounter Details Date Type Department Care Team (Late st Contact Info) Description 10/14/2023 Documentation Department of Urology in [place], [place] [address] [place] [address] Paula Hernandez M.D. [address] [place] [address] Catheter Care Plan Social History Tobacco Use [...] your living situation today? I have a [facility] place to live 09/09/2023 Sex and Gender Information Value Date Recorded Sex Assigned at Not on file Gender Identity Not on file Sexual Orientation Not on file documented as of this encounter Progress Notes * Ashleigh Ferreira RJonahN. - 10/14/2023 2:05 PM CDT Treatment Summary and Care Plan - Catheter Exchange General Information [facility]/ Patient Name: Kalen Vega Date: 1940 Health Care Provider(s) Medical Provider(s) Cesar Mccollum M.D. Institution: No address on file [place], [place] Urology Provider(s) Chief Urology residents Last seen by Paula Hernandez M.D. Institution: [facility] Treatment Summary Diagnosis Hydronephrosis; hematuria; metastatic prostate cancer; radiation cystitis Treatment Surgery []Yes [x] No Surgery Date(s) Surgical Procedure/Location/Findings Current Treatment Information/Follow-up Care Plan Frequency of Catheter Changes (i.e. every 4 weeks) every 4 weeks Catheter Information Type: Coude red rubber Size:20F Reference #: [id number] Catheter Prescription Expires NA Last seen by [...] CDT Procedure visit Department of Urology in [address] [phone] Burke Strauss M.D. [address] [place] [phone] Discharge Disposition: Home or Self Care documented as of this encounter Visit Diagnoses Not on filedocumented in this encounter Care Teams Explosive Ordnance Disposal Specialist Relationship Specialty Start Date End Date Elsewhere, Pcp PCP - General Internal Medicine 08/13/23 documented as of this encounter
--- OUTSIDE RECORDS SUMMARY | 2023-12-13 12:14 | XMS_ITS | Encounter Summary ---
Author Organization [facility] Address [address] [place] [address] Care Team Providers Care Expense Clerk Name Role Phone Elsewhere, Pcp Primary Care Provider Unavailabl e Encounter Details Date Type Department Care Team (Latest Contact Info) Description 11/14/2023 Intake [facility] Social History Tobacco Use Types Packs/Day Years Used Date Smoking Tobacco: Never Smokeless Tobacco: Never [facility] Utilities Answer Date Recorded In the past [...] CDT Procedure visit Department of Urology in [place], [place] [address] [place] [address] Burke Strauss M.D. [facility] [place] [address] Discharge Disposition: Home or Self Care documented as of this encounter Visit Diagnoses Not on filedocumented in this encounter Care Teams Expense Clerk Relationship Specialty Start Date End Date Elsewhere, Pcp PCP - General Internal Medicine 08/13/23 documented as of this encounter
--- OUTSIDE RECORDS SUMMARY | 2023-12-13 12:14 | XMS_ITS | Encounter Summary ---
Author Organization [facility] Address [address] [place] [address] Care Team Providers Care Concrete Paver Name Role Phone Elsewhere, Pcp Primary Care Provider Unavailabl e Encounter Details Date Type Department Care Team (Late st Contact Info) Description 11/09/2023 Clinical Communication Department of Urology in [place], [place] [address] [place] [address] Burke Strauss M.D. [address] [place] [phone] Social History Tobacco Use Types Packs/Day Years [...] [facility] 11/15/2023 Sex [...] CDT Procedure visit Department of Urology in [address] [phone] Burke Strauss M.D. [address] [place] [phone] Discharge Disposition: Home or Self Care documented as of this encounter Visit Diagnoses Not on filedocumented in this encounter Care Teams Concrete Paver Relationship Specialty Start Date End Date Elsewhere, Pcp PCP - General Internal Medicine 08/13/23 documented as of this encounter
--- OUTSIDE RECORDS SUMMARY | 2023-12-13 12:14 | XMS_ITS | Encounter Summary ---
Author Organization [facility] Address [address] [place] [address] Care Team Providers Care Inside Sales Manager Name Role Phone Elsewhere, Pcp Primary Care Provider Unavailabl e Reason for Visit * Reason Onset Date Comments follow up questions 09/16/2023 Encounter Details Date Type Department Care Team (Latest Contact Info) Description 09/16/2023 Clinical Communication Department of Urology in [place], [place] [address] [place] [address] Provider, Unknown follow up questions Social History Tobacco Use Types Packs/Day Years Used Date Smoking Tobacco: Never Smokeless Tobacco: Never [employer] Utilities Answer Date Recorded In the past 12 months has [facility] [employer], gas, oil, or water [employer] threatened to shut off services in your [...] CDT Procedure visit Department of Urology in [place], [place] [address] [place] [address] Burke Strauss M.D. 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
--- OUTSIDE RECORDS SUMMARY | 2023-12-13 12:14 | XMS_ITS | Encounter Summary ---
Author Organization [facility] Address [address] [place] [address] Care Team Providers Care Health Policy Nurse Name Role Phone Elsewhere, Pcp Primary Care Provider Unavailabl e Reason for Referral * Outpatient (Routine) - Authorized Specialty Diagnoses / Procedures Referred By Contac t Referred To Contact Diagnoses Hematuria Gross Procedures DX Chest AP or PA and Lateral 2 Views Paula Hernandez M.D. [address] [place] [address] [facility] Referral ID Status Reason Start Date Expiration Date V isits Requested Visits Authorized [id number] Authorized 09/16/2023 09/15/2024 1 1 Encounter Details Date Type Department Care Team (Late st Contact Info) Description 09/16/2023 Orders Only Department of Urology in [place], [place] [address] [place] [phone] Paula Hernandez M.D. [address] [place] [address] Hematuria Gross (Primary Dx) Social History Tobacco [...] have a [facility] place to live 09/09/2023 Sex and Gender Information Value Date Recorded Sex Assigned at Not on file Gender Identity Not on file Sexual Orientation Not on file documented as of this encounter Plan of Treatment Upcoming Encounters Date Type Department Care Team (Latest Contact Info) Description 01/11/2024 9:00 AM CDT Procedure visit Department of Urology in [place], [place] [address] [place] [address] Burke Strauss M.D. [facility] [place] [phone] Discharge Disposition: Home or Self Care Scheduled [...] documented as of this encounter Care Teams Health Policy Nurse Relationship Specialty Start Date End Date Elsewhere, Pcp PCP - General Internal Medicine 08/13/23 documented as of this encounter
--- OUTSIDE RECORDS SUMMARY | 2023-12-13 12:14 | XMS_ITS | Encounter Summary ---
Author Organization [facility] Address [address] [place] [address] Care Team Providers Care Wildlife Conservationist Name Role Phone Elsewhere, Pcp Primary Care Provider Unavailabl e Encounter Details Date Type Department Care Team (Late st Contact Info) Description 11/15/2023 10:40 AM CDT Ancillary Procedure Department of Wound Ostomy Social History Tobacco Use Types Packs/Day Years Used Date Smoking Tobacco: Never Smokeless Tobacco: Never [facility] Utilities Answer Date Recorded In the past 12 months has th e electric, gas, oil, or water [employer] threatened to shut off services in [...] your living situation today? I have a [facility] place to live 11/15/2023 Sex and Gender Information Value Date Recorded Sex Assigned at Not on file Gender Identity Not on file Sexual Orientation Not on file documented as of this encounter Plan of Treatment Upcoming Encounters Date Type Department Care Team (Latest Contact Info) Description 01/11/2024 9:00 AM CDT Procedure visit Department of Urology in [place] [address] [place] [phone] Burke Strauss M.D. [address] [place] [phone] Discharge Disposition: Home or Self Care documented [...] on filedocumented in this encounter Care Teams Wildlife Conservationist Relationship Specialty Start Date End Date Elsewhere, Pcp PCP - General Internal Medicine 08/13/23 documented as of this encounter
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
--- OUTSIDE RECORDS SUMMARY | 2023-12-13 12:14 | XMS_ITS | Encounter Summary ---
Author Organization [facility] Address [address] [place] [address] Care Team Providers Care Kraft Digester Operator Name Role Phone Elsewhere, Pcp Primary Care Provider Unavailabl e Reason for Referral * Outpatient (Routine) - Authorized Specialty Diagnoses / Procedures Referred By Contaraceli t Referred To Contact Urology Diagnoses Hematuria Paula Benton M.D. [address] [place] [phone] [facility] Referral ID Status Reason Start Date Expiration Date V isits Requested Visits Authorized [id number] Authorized 09/15/2023 03/16/2025 1 1 Encounter Details Date Type Department Care Team (Late st Contact Info) Description 09/15/2023 Clinical Communication [facility] [address] [place] [phone] Yasmine Loco Social History Tobacco Use Types [...] CDT Procedure visit Department of Urology in [place], [place] [address] [place] [phone] Burke Strauss M.D. [facility] [place] [phone] Discharge Disposition: Home or Self [...] documented as of this encounter Care Teams Kraft Digester Operator Relationship Specialty Start Date End Date Elsewhere, Pcp PCP - General Internal Medicine 08/13/23 documented as of this encounter
--- OUTSIDE RECORDS SUMMARY | 2023-12-13 12:14 | XMS_ITS | Encounter Summary ---
Author Organization [facility] Address [address] [place] [address] Care Team Providers Care Glue Sprayer Name Role Phone Elsewhere, Pcp Primary Care Provider Unavailabl e Reason for Referral * Outpatient (Routine) - Closed Specialty Diagnoses / Procedures Referred By Leyla t Referred To Contact Urology Burke Strauss M.D. [address] [place] [phone] [facility] Referral ID Status Reason Start Date Expiration Date Visits Re quested Visits Authorized [id number] Closed 11/09/2023 05/10/2025 1 1 * Outpatient (Routine) - Authorized Specialty Diagnoses / Procedures Referred By Contaraceli t Referred To Contact Diagnoses Retention Urinary Chronic Procedures URO Urethral cath change (UCC) Burke Strauss M.D. [address] [place] [phone] [facility] Region Referral ID Status Reason Start Date Expiration Date V isits Requested Visits Authorized [id number] Authorized 11/09/2023 11/08/2024 15 15 Reason for Visit * Reason Comments Consult Discuss catheter thomas nges * Appointment Request (Routine) - Closed Specialty Diagnoses / Procedures Referred By Leyla rosenthal Referred To Contact Urology Referral ID Status Reason Start Date Expiration Date Visits Re quested Visits Authorized [id number] Closed 10/27/2023 10/26/2024 1 1 Encounter Details Date Type Department Care Team (Late st Contact Info) Description 11/09/2023 11:00 AM CDT Office Visit Department of Urology in [place], [place] [address] [place] [phone] Burke Strauss M.D. [address] [place] [phone] Primary Malignant Neoplasm Of Prostate (HCC) (Primary Dx); Retention Urinary Chronic; Hematuria Gross Discharge Disposition: Home or Self Care Social History Tobacco Use Types Packs/Day Years Used Date Smoking Tobacco: Never Smokeless Tobacco: Never [facility] [employer]ities Answer Date Recorded In the past 12 months has [facility] electric, gas, oil, or water [email or web address] threatened to shut off services in your [...] ILLNESS Patient presents to establish care from [facility]. He has multiple urologic issues including [...] the past few days. Original plan from [facility] was to exchange his left nephrostomy tube in 3 months, due 12/14/2023. He reports getting good output from the left neph tube without hematuria. His radiation cystitis, radiation proctitis and sacral ulcer currently being treated with hyperbaric oxygen therapy through the [facility] in [facility]. He has completed 19 of 45 planned treatments and expects to finish that course in early December. Metastatic prostate cancer is being managed by [facility], Dr. Mireya Tan. Release of [...] an antegrade nephrogram through Interventional Radiology in [place] prior to nephrostomy tube removal. documented in this encounter Plan of Treatment Upcoming Encounters Date Type Department Care Team (Latest Contact Info) Description 01/11/2024 9:00 AM CDT Procedure visit Department of Urology in [place], [place] [address] [place] [phone] Burke Strauss M.D. [address] [place] [phone] Discharge Disposition: Home or Self Care Scheduled [...] Gross documented in this encounter Care Teams Glue Sprayer Relationship Specialty Start Date End Date Elsewhere, Pcp PCP - General Internal Medicine 08/13/23 documented as of this encounter
--- OUTSIDE RECORDS SUMMARY | 2023-12-13 12:14 | XMS_ITS | Encounter Summary ---
Author Organization [facility] Address [address] [place] [address] Care Team Providers Care Rotary Furnace Tender Name Role Phone Elsewhere, Pcp Primary Care Provider Unavailabl e Encounter Details Date Type Department Care Team (Late st Contact Info) Description 09/21/2023 Clinical Communication Department of Urology in [place], [place] [address] [place] [phone] Paula Hernandez M.D. [address] [place] [phone] Social History Tobacco Use Types Packs/Day Years Used Date Smoking Tobacco: Never Smokeless Tobacco: Never [facility] Utilities Answer Date Recorded In the past [address] [facility] [employer], gas, oil, or water [employer] threatened to shut off services in your [...] 2:37 PM CDT I called the patient's [place] physician who he saw yesterday, 09/19 in [...] CDT Procedure visit Department of Urology in [place], [place] [address] [place] [address] Burke Strauss M.D. [address] [place] [phone] Discharge Disposition: Home or Self Care documented as of this encounter Visit Diagnoses Not on filedocumented in this encounter Care Teams Rotary Furnace Tender Relationship Specialty Start Date End Date Elsewhere, Pcp PCP - General Internal Medicine 08/13/23 documented as of this encounter
--- OUTSIDE RECORDS SUMMARY | 2023-12-13 12:14 | XMS_ITS | Encounter Summary ---
Author Organization [facility] Address [address] [place] [address] Care Team Providers Care Environmental Service Aide Name Role Phone Elsewhere, Pcp Primary Care Provider Unavailabl e Reason for Visit * Reason Onset Date Comments Oncology records request 11/10/2023 Encounter Details Date Type Department Care Team (Latest Contact Info) Description 11/10/2023 Clinical Communication Department of Urology in [place], [place] [address] [place] [phone] Burke Strauss M.D. [address] [place] [phone] Oncology records request Social History Tobacco Use Types Packs/Day Years Used Date Smoking Tobacco: Never Smokeless Tobacco: Never [facility] Utilities Answer Date Recorded In the [...] Information was filled out and faxed to [facility], Dr. Mireya Tan clinic per Dr. Strauss. Will wait for these to come through and notify Dr. Strauss for his review. [facility] documented in this encounter Plan of Treatment Upcoming Encounters Date Type Department Care Team (Latest Contact Info) Description 01/11/2024 9:00 AM CDT Procedure visit Department of Urology in [place], [place] [address] [place] [phone] Burke Strauss M.D. [address] [place] [phone] Discharge Disposition: Home or Self Care documented as of this encounter Visit Diagnoses Not on filedocumented in this encounter Care Teams Environmental Service Aide Relationship Specialty Start Date End Date Elsewhere, Pcp PCP - General Internal Medicine 08/13/23 documented as of this encounter
--- OUTSIDE RECORDS SUMMARY | 2023-12-13 12:14 | XMS_ITS | Encounter Summary ---
Author Organization [facility] Address [address] [place] [address] Care Team Providers Care Gate Agent Name Role Phone Elsewhere, Pcp Primary Care Provider Unavailabl e Encounter Details Date Type Department Care Team (Late st Contact Info) Description 11/14/2023 Documentation Department of Urology in [place], [place] [address] [place] [address] Sowmya Aviles, ARUN, C.N.P., M.S.N. [address] [place] [phone] Social History Tobacco Use Types Packs/Day Years Used Date Smoking Tobacco: Never Smokeless Tobacco: Never [facility] Utilities Answer Date Recorded In [...] - 11/14/2023 3:31 PM CDT Contacted via [facility] regarding this patient. Not personally seen or evaluated as patient is in the [facility] Emergency Department. Kalen Vega is a 83 y.o. male with medical comorbidities of acute DVT on Plavix, coronary artery disease status post stent, degenerative joint disease, hyperlipidemia, lymphedema, prediabetes. 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 Tan in [place], [place]. Right hydronephrosis and right atrophic kidney [...] to hospital. He presented to [facility] Emergency Department today for evaluation of hematuria and no drainage into urinary catheter. He reports leakage around the catheter of urine and blood clots. A 22 [place] three-way catheter was placed, patient was hand [...] CDT Procedure visit Department of Urology in [place], [place] [address] [place] [phone] Burke Strauss M.D. [address] [place] [phone] Discharge Disposition: Home or Self Care documented as of this encounter Visit Diagnoses Not on filedocumented in this encounter Care Teams Gate Agent Relationship Specialty Start Date End Date Elsewhere, Pcp PCP - General Internal Medicine 08/13/23 documented as of this encounter
--- OUTSIDE RECORDS SUMMARY | 2023-12-13 12:14 | XMS_ITS | Encounter Summary ---
Author Organization [facility] Address [address] [place] [address] Care Team Providers Care Shell Mold Bonding Machine Operator Name Role Phone Elsewhere, Pcp Primary Care Provider Unavailabl e Reason for Visit * Reason Comments Urinary Retention * Outpatient (Routine) - Closed Specialty Diagnoses / Procedures Referred By Contaraceli t Referred To Contact Diagnoses Hematuria Procedures URO Urethral cath change (UCC) Paula Hernandez M.D. [address] [place] [phone] [facility] Referral ID Status Reason Start Date Expiration Date Visits Re quested Visits Authorized [id number] Closed 09/15/2023 09/14/2024 1 1 Encounter Details Date Type Department Care Team (Late st Contact Info) Description 10/14/2023 1:00 PM CDT Procedure visit Department of Urology in [place], [place] [address] [place] [phone] Paula Hernandez M.D. [address] [place] [phone] Khadra Miller R.N. [address] [place] [phone] Hematuria Social History Tobacco Use Types Packs/Day [...] your living situation today? I have a [facility] place to live 09/09/2023 Sex [...] CDT Procedure visit Department of Urology in [place], [place] [address] [place] [phone] Burke Strauss M.D. [facility] [place] [phone] Discharge Disposition: Home or Self Care documented as of this encounter Visit Diagnoses Diagnosis Hematuria documented in this encounter Care Teams Shell Mold Bonding Machine Operator Relationship Specialty Start Date End Date Elsewhere, Pcp PCP - General Internal Medicine 08/13/23 documented as of this encounter
--- NOTE | 2023-12-13 12:15 | CRLHL7_ITS ---
For Patients: As a result of the Cures Act, medical imaging exams and procedure reports are released immediately into your electronic medical record. You may view this report before your referring provider. If you have questions, please contact your health care provider. INDICATION: Pressure ulcer. TECHNIQUE: Three views of the sacrum. COMPARISON: 08/13/2023 CT. FINDINGS: No specific evidence for osteomyelitis. No acute fracture. Anterior subluxation of the tip of the coccyx was present on the previous CT. Stable sclerotic changes in the sacrum. No change from prior study. Dictated by Luis Wilkinson MD @ 12/13/2023 2:47:51 PM (Electronically Signed)
--- OUTSIDE RECORDS SUMMARY | 2023-12-13 12:15 | XMS_ITS | Encounter Summary ---
Author Organization [facility] Address [address] [place] [address] Care Team Providers Care Guidance Secretary Name Role Phone Elsewhere, Pcp Primary Care Provider Unavailabl e Reason for Visit * Reason Comments Urinary Problem Rapid Heart Rate Encounter Details Date Type Department Care Team (Latest Contact Info) Description 08/30/2023 7:35 PM CDT - 09/05/2023 4:09 PM CDT Hospital Encounter [facility], [facility], [facility], First Floor [address] [place] [address] Kirstin Hughes M.D. [address] [place] [phone] Mayur Alvarez M.D. [address] [place] [phone] Hematuria (Primary Dx); Tachycardia; Hematuria Gross Discharge Disposition: Home-Health Care Svc Social History Tobacco Use Types Packs/Day Years Used Date Smoking Tobacco: Never Smokeless Tobacco: Never [facility] Utilities Answer Date Recorded In [...] your living situation today? I have a [facility] place to live 09/05/2023 Sex and [...] PM CDT DISCHARGE SUMMARY BRIEF OVERVIEW Hospital: [facility] Discharge Provider: Mayur Alvarez M.D. Primary Team: [facility] Urology Surgery - Chief [...] CYSTOGRAM Mayur Alvarez M.D.White, Lindsay A, M.D. [facility] ROMB OR DISCHARGE DISPOSITION Home-Health Care [facility] [6] ACTIVE ISSUES REQUIRING FOLLOW UP OUTPATIENT [...] CONSULT TO CARE MANAGEMENT IP CONSULT TO PROVIDER RELATIONS REP WOUND CARE IP CONSULT TO HYPERBARIC MEDICINE CONDITION AT DISCHARGE improved Discharge instructions were provided to the patient and caregiver(s). documented in this encounter Discharge Instructions * Patient Instructions* Carmen Louis, R.N. - 08/31/2023 9:44 AM CDT The Senior LinkAge Line?? is a service of the [place] Board on Aging in partnership with [place] Agencies on Aging. It is a free service of the [facility] that connects older [place]ans and their families with the help they need. Call the Senior LinkAge Line?? at: 767.849.9973 M-F, 8am-4:30pm to connect with specialists that are available to assist you with your specific needsor check out their website at https://www.[employer] * Attachments The following attachments cannot be sent through Care Everywhere. * Cefdinir (By mouth) (Armenian) documented in this encounter [...] questions or concerns. Pager during business hours: [phone] Pager after hours: [phone] * Jeffery Valdez M.D. - 09/04/2023 10:34 [...] questions or concerns. Pager during business hours: [phone] Pager after hours: [phone] * Jeffery Valdez M.D. - 09/03/2023 4:10 [...] [facility]: Diet: Regular Activity: Ad kong DVT PPX: Holding GI PPX: None Bowel Regimen: Senna, MiraLax IVF: LR 50 Abx/Microbiology: Ucx pending Pain Control: Tylenol, 2.5/5 oxycodone Home Meds Resumed: Enzalutamide, metoprolol, mirabegron, rosuvastatin, trospium Held Home Meds: Plavix, Xarelto Consults: None Jeffery Valdez M.D. 09/03/2023 10:45 AM CDT Please page the Urology Chief Service with questions or concerns. Pager during business hours: [phone] Pager after hours: [phone] * Paula Hernandez M.D. - 09/02/2023 6:25 [...] questions or concerns. Pager during business hours: [phone] Pager after hours: [phone] * Michelle Willams R.N., C.W.C.N. - 09/01/2023 11:43 AM CDT [facility] Wound RN [...] Secondary Dressing Status Clean;Dry;Intact Changed by Wound assistant designer Ongoing management Nursing;Wound/sales and marketing intern Urine Assessment Urine Color Colorless Hematuria Scale [place] Urine Appearance Clear;Sediment Head to toe skin [...] update the patient. Son stated that a Partner visited the home and will be trying to assist both and patient with cares/coordination. OBJECTIVE Patient is located on [facility] room 111. Referrals were sent to the following agencies: Home Medical Care - Admitted Since 08/30/2023 Service Provider Request Status Selected Services Address Phone Fax Patient Preferred [facility] Health - Gamaliel Pending - Request Sent N/A [address] [facility] [address] [phone] -- [facility] - Home Care Pending - Request Sent N/A [address] [facility] [address], [facility] [address] [phone] -- Home Health Care Pending - Request Sent N/A [address] [facility] [address] [facility] [address] [phone] -- [facility] Pending - Request Sent N/A [address] [facility] [phone] -- [facility] Pending - Request Sent N/A [address] [facility] [phone] -- [facility] Pending - Request Sent N/A [address] [facility] [address], [facility] [address] [phone] -- [facility] Home Health Declined Facility Full N/A [address] [facility] [phone] -- ASSESSMENT / PLAN ASSESSMENT Furnace Worker attempted to contact patient on room phone but was unable to get through. Case Manageras able to reach his son who will update that patient that the preferred home health agency was unable to accept and that referrals would be sent to other home health agencies. Requested services arenursing for wound care and catheter and PT/OT. PLAN Furnace Worker will follow up with referrals. Case [...] questions or concerns. Pager during business hours: [phone] Pager after hours: [phone] * Paula Hernandez M.D. - 08/31/2023 10:45 [...] questions or concerns. Pager during business hours: [phone] Pager after hours: [phone] Associated attestation - Mayur Alvarez M.D. - 08/31/2023 12:14 PM CDT I agree with the Urology Chief Service plan for palliative cystoscopy under anesthesia, clot evacuation, proceed as indicated. We will plan for judicious irrigation given his recent bladder surgery and we will perform a cystogram at the end of the procedure. * Demarco Salazar, Mireille.D., R.Ph., [facility] - 08/31/2023 7:19 AM CDT [...] discontinuation of antibiotics. Pedrito Salazar Pharm.D., R.Ph., [facility] Admission Medication History Note Adherence [...] Complete Set By: Demarco Salazar Pharm.D., R.Ph., [facility] at 08/31/2023 7:22 AM Taking? [...] an 83 y.o. male transferred to the [facility] ED for further management of [...] for CBI. He was then transferred to [facility] on 08/12; a CT cystogram [...] was initiated on CBI and transferred to [facility] for further management. On my [...] for radiation proctitis SOCIAL HISTORY Lives in [place], [place] OBJECTIVE Vitals Blood pressure 134/84, pulse [...] hematuria, clot obstruction and was transferred to [facility] for further evaluation and management. Urinary bladder ultrasound showing 5 cm clot burden; catheter draining on fast-rate CBI after multiple rounds of hand irrigation. Plan - Continue CBI - Q2h hr hand irrigations - NPO overnight pending am re-evaluation - Hold Plavix, Xarelto for now The above was discussed with Drs. Venegas and Lefty, the chief urology residents interventional technologist. Please page chief Urology [place] [phone] [place] [phone] afterhours. documented in this encounter Procedure Notes [...] on androgen deprivation therapy. 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 [...] prolonged inpatient stay, would request transfer to [facility] prior to initiation of hyperbaric oxygen [...] 11 Referral Reason: Discharge Planning Primary Language: Armenian [employer] Services Used: No Person(s) present during interview: [...] Communication: Can write, Talks, Understands speaking, Understands Armenian, Reads Shopping: Needs assistance Medication Management: Independent Housekeeping: Needs assistance Meal Prep: Independent Assistive Devices: Walker - front wheeled, Eyeglasses, Hearing aid(s) [facility] Provided: Senior Care/PT/OT Transportation: Support from family Baseline Services/Resources Primary care clinic and provider: ELSEWHERE, PCP Additional Resources: N/A Anticipated Needs Functional Status: Housekeeping, Shopping, Transportation use (drive car, use taxi/bus), Mobility, Transfer to/from bed, chair, etc., Bathing Assistive Devices: Eyeglasses, Hearing aid(s), Walker - front wheeled Services/Resources: Home health Agency Name: [facility] Provided: Senior Care/PT/OT Anticipated Modifications to the Patient's Home: None Transportation Needs: Support from family Does the patient need discharge transport arranged?: No Anticipated Discharge Destination: Home-Health Care [facility] ASSESSMENT / PLAN Assessment: The unit receptionist met with Kalen Srinivasan Gary to discuss his current hospitalization and home goingneeds. The patient was accompanied by son, Kar . The patient was a reliable historian. The role ofRN Furnace Worker was reviewed. The patient reviewed his prior level of care and support system. The patient receives support from his and children. The patient described his living environment as a home with bedroom and bathroom on same floor withstairs to enter with rails. Housekeeping, grocery shopping, meal prep, and other household responsibilities have previously been completed by patient and patient's son. unit receptionist discussed the patient's potential needs at dismissal based on their home setting, previous needs and responsibilities, homebound status, and relevant assessments with the patient. The patient will be safe and supported to return home with [facility] or previous services noted above when [...] [facility] care. Patient stated that [employer] was supposed to be set- up at discharge after the last hospital stay but that the company never received orders to start care and that he was told by nursing that due to his PICC removal he would not need care. Furnace Worker will clarifywith home health team regarding [...] chart and meeting with the patient, the unit receptionist deemed the LACE+/readmission questions were appropriate. The [...] current readmission could have been prevented. The unit receptionist will share this information with the care team. The patient reports understanding that he will dismiss from the hospital when medically stable. Thefollowing potential barriers to dismissal have been identified: Home Health Care Addendum 1230: Furnace Worker called [facility]. They received the referral but declined due to being at capacity. Plan: The patient agrees with the following plan. Patient's anticipated discharge disposition is: Home with Home Healthcare Referrals sent. Transportation upon dismissal will be provided by family--Kar . unit receptionist recommended home health services. unit receptionist provided information regarding the dismissal process and the Senior Linkage Line ([place] Board on Aging) handout. unit receptionist placed or requested the following hospital-based consult orders and/or referrals: None. unit receptionist will follow up with the patient to [...] with updates and/or transition plan to come. unit receptionist encouraged the patient to reach out with [...] CDT Pre-op Diagnosis Hematuria Post-op Diagnosis Hematuria Switchboard Clerk A bar assistant actively participated and was necessary for [...] secondary to cystostomy closure presenting today from [facility] with concerns for worsening hematuria. He was [...] 08/30/2023 8:48 AM CDT Pt transferred from [facility] via EMS, pt c/o blocked jon cath that started today. Pt had a right uretal stent exchange and an open bladder repair 08/15/23 and was discharged 08/25. Pt had a3 way jon placed at [facility], and transferred here because the clots returned. [...] RN, CPN, CCDS, CCS, CRC Clinical Documentation Computational Physicist Query created by: ELMER Barker, RN, CPN, [...] CDT Procedure visit Department of Urology in [place], [place] [address] [place] [phone] Burke Strauss M.D. [address] [place] [address] Discharge Disposition: Home or Self Care Pending [...] CDT Roxy Romero M.D. LAB BLOOD ADD-ON [facility] [address] [place], [place] [phone] [place] [address] [address] [place] [address] * (ABNORMAL) Basic Metabolic Panel (09/05/2023 4:52 [...] Jakob De Paz M.D. LAB BLOOD ADD-ON [address] [address], [facility] [address] [place] [address] * (ABNORMAL) Basic Metabolic Panel (09/04/2023 8:15 [...] CDT Jeffery Valdez M.D. LAB BLOOD ADD-ON [facility] [address] [place] [address], [facility] [address] [place] [address] * (ABNORMAL) CBC without Differential (09/04/2023 8:15 [...] CDT Jeffery Valdez M.D. LAB BLOOD ADD-ON [facility] [address] [place] [address], [facility] [address] [place] [address] * Transfuse Red Blood Cells : (09/04/2023 3:30 PM CDT) Jeffery Valdez M.D. BLOOD TRANSFUSION OR DERABLES * Transfuse Red Blood Cells : , 1 Units (09/04/2023 3:30 PM CDT) Jeffery Valdez M.D. BLOOD TRANSFUSION OR DERABLES * Type and Screen (with Reflex Antibody ID) (09/04/2023 10:59 AM CDT) Pathologist [facility] ABORh O Pos Not applicable 09/04/2023 11:46 AM CDT STRM Antibody Screen Negative Negative 09/04/2023 11:59 AM CDT STRM Type & Screen Expiration 09/07/2023 23:59 09/04/2023 11:46 AM CDT STRM Testing Location [place] DEFAULT 09/04/2023 11:21 AM CDT STRM Blood (Blood, Venous) 09/04/2023 10:59 AM CDT 09/04/2023 11:21 AM CDT Jeffery Valdez M.D. LAB BLOOD BANK TEST ORDERABLES Performing Organization Address [facility]/ZIP Co de Phone Number [facility] [address] [place] [address], [facility] [address] [address] * Heparin Anti-Xa Assay (09/04/2023 7:34 AM [...] BLOOD NON A DD-ON Performing Organization Address City/[facility]/ZIP Co de Phone Number [facility] [address] [place] [address], [facility] [address] [place] [address] * (ABNORMAL) CBC without Differential (09/04/2023 7:34 [...] M.D. LAB BLOOD ADD-ON Performing Organization Address [facility]/State/ZIP Co de Phone Number [facility] [address] [place] [address], [facility] [address] [place] [address] * Heparin Anti-Xa Assay (09/04/2023 12:30 AM [...] BLOOD NON A DD-ON Performing Organization Address City/[facility]/ZIP Co de Phone Number [facility] [address] [place] [address] * Bacterial Culture, Aerobic + Susceptibility, Urine (09/03/2023 10:50 AM CDT) Urine Culture No growth after 1 day of incubation. 09/04/2023 8:52 AM CDT DTL Urine (Urine, Indwelling Catheter) 09/03/2023 10:50 AM CDT 09/03/2023 11:53 AM CDT Comment:Specimen Source Site : Urine Jeffery Valdez M.D. LAB MICROBIOLOGY - G ENERAL ORDERABLES Performing Organization Address [facility] Co de Phone Number [facility] [address] [place] [address] * (ABNORMAL) CBC without Differential (09/03/2023 3:29 [...] M.D. LAB BLOOD ADD-ON Performing Organization Address [facility] Co de Phone Number [facility] [address] [place] [address], [facility] [address] [place] [address] * Heparin Anti-Xa Assay (09/03/2023 3:29 AM [...] BLOOD NON A DD-ON Performing Organization Address City/[facility] Co de Phone Number [facility] [address] [place] [address], [facility] [address] [place] [address] * Heparin Anti-Xa Assay (09/02/2023 2:57 AM [...] Alvarez M.D. LAB BLOOD NON A DD-ON [address] [address], [facility] [address] [address] * (ABNORMAL) CBC without Differential (09/01/2023 8:16 PM CDT) [facility] Hemoglobin 8.5(L) 13.2 - 16.6 g/dL [...] BLOOD ADD-ON Performing Organization Address City/[facility] Co de Phone Number [facility] [address] [place] [address], [facility] [address] [place] [address] * Heparin Anti-Xa Assay (09/01/2023 6:50 PM [...] BLOOD NON A DD-ON Performing Organization Address [facility] Co de Phone Number [facility] [address] [place] [address], [facility] [address] [place] [address] * APTT (Activated Partial Thromboplastin Time) (09/01/2023 9:05 AM CDT) Activated Partial Thrombopl Time, P 28 25 - 37 sec 09/01/2023 9:35 AM CDT STMA Blood (Blood, Venous) 09/01/2023 9:05 AM CDT 09/01/2023 9:21 AM CDT Paula Hernandez M.D. LAB BLOOD ADD-ON [facility] [address] [place] [address], [facility] STMA [facility] [address] [place] [address] * (ABNORMAL) Basic Metabolic Panel (08/31/2023 9:36 PM CDT) Pathologist [facility] [...] [facility] [address] [place] [address], [facility] DTL [facility] [address] [place] [address] * (ABNORMAL) CBC without Differential (08/31/2023 9:36 [...] City/[facility]/ZIP Co de Phone Number [facility] [address] [place] [address], [facility] DTL [facility] [address] [place] [address] * FL Fluoro Less Than 1 Hour (08/31/2023 2:12 PM CDT) Narrative 152 HOS LOS RST - 08/31/2023 2:13 PM CDT This exam does not require a radiologist review or interpretation. Please refer to the patient's medical record on this date for clinical details. Mayur Alvarez M.D. IMG FLUOROSCOPY PROCEDURES Performing Organization Address City/[facility]/ZIP Co [...] * (ABNORMAL) Hemoglobin (08/31/2023 4:21 AM CDT) [facility] Hemoglobin 7.8(L) 13.2 - 16.6 g/dL 08/31/2023 4:47 AM CDT DTL Blood (Blood, Venous) 08/31/2023 4:21 AM CDT 08/31/2023 4:35 AM CDT Kimi Vieira M.D., M.S. LAB BLOO D ADD-ON Performing Organization Address [facility] Co de Phone Number [facility] [address] DTL [facility] [address] [place] [address] * Type and Screen (with Reflex Antibody ID) (08/30/2023 9:50 PM CDT) [facility] ABORh O Pos Not applicable 08/30/2023 10:17 PM CDT STRM Antibody Screen Negative Negative 08/30/2023 10:31 PM CDT STRM Type & Screen Expiration 09/02/2023 23:59 08/30/2023 10:17 PM CDT STRM Testing Location [place] DEFAULT 08/30/2023 9:58 PM CDT STRM Blood (Blood, Venous) 08/30/2023 9:50 PM CDT 08/30/2023 9:58 PM CDT Shannan Correa D.O., M.H.A. LAB BLOOD BANK TEST ORDERABLES Performing Organization Address [facility] Co de Phone Number [facility] [address] STRM [facility] [address] [place] [address] * Lactate (08/30/2023 9:50 PM CDT) [facility] Lactate, P 1.8 0.5 - 2.2 mmol/L 08/30/2023 10:09 PM CDT STMA Blood (Blood, Venous) 08/30/2023 9:50 PM CDT 08/30/2023 9:55 PM CDT Narrative Authorizing Provider Result Abdifatah Correa D.O., M.H.A. LAB BLOOD NON ADD-ON [facility] [address] [place] [address], [facility] STMA [facility] [address] [place] [address] * (ABNORMAL) Basic Metabolic Panel (08/30/2023 9:49 [...] BLOOD ADD- ON [facility] [address] [place] [address], [facility] STMA [facility] [address] [place] [address] * (ABNORMAL) CBC with Differential, Blood (08/30/2023 [...] BLOOD ADD- ON [facility] [address] [place] [address], [facility] STMA [facility] [address] [place] [address] * DX Chest AP or PA and [...] MUSE QTC Interval 403 ms MUSE P [place] 44 degrees MUSE R [place] 9 degrees MUSE T Wave [place] -76 degrees MUSE 08/30/2023 7:44 PM CDT [...] give total of 40 mEq Dissolve per dental laboratory technology teacher recommendations. Do NOT chew or swallow tablet., [...] Sarah Morgan RNarendra - Reason: See Provider Order)1310 (Unheld by provider - Provider: Jeffery Valdez [...] give total of 40 mEq Dissolve per dental laboratory technology teacher recommendations. Do NOT chew or swallow tablet., [...] Dillard R.N.)0938 (Stopped - Provider: Joy Jackson RJonahNJonah) NaCl 0.9 % irrigation solution 3,000 mL [...] tramadol. 2106 (Given - Provider: Gaye Dillard RJonahNJonah) alum-mag hydroxide-simeth 200-200-20 mg/5 mL suspension [...] 2256 documented in this encounter Care Teams Guidance Secretary Relationship Specialty Start Date End Date Elsewhere, Pcp PCP - General Internal Medicine 08/13/23 documented as of this encounter
--- OUTSIDE RECORDS SUMMARY | 2023-12-13 12:15 | XMS_ITS | Encounter Summary ---
Author Organization [facility] Address [address] [place] [address] Care Team Providers Care Carpentry Teacher Name Role Phone Elsewhere, Pcp Primary Care Provider Unavailabl e Encounter Details Date Type Department Care Team (Late st Contact Info) Description 09/06/2023 Orders Only Section of Hyperbaric Medicine in [place], [place] [address] [place] [address] Kira Ferraro, ARUN, C.N.P., M.S.N. [address] [place] [address] Social History Tobacco Use Types Packs/Day Years [...] [facility] live 09/09/2023 Sex and Gender Information Value Date Recorded Sex Assigned at Not on file Gender Identity Not on file Sexual Orientation Not on file documented as of this encounter Plan of Treatment Upcoming Encounters Date Type Department Care Team (Latest Contact Info) Description 01/11/2024 9:00 AM CDT Procedure visit Department of Urology in [place], [place] [address] [place] [phone] Burke Strauss M.D. 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
--- OUTSIDE RECORDS SUMMARY | 2023-12-13 12:15 | XMS_ITS | Encounter Summary ---
Author Organization [facility] Address [address] [place] [address] Care Team Providers Care Lock Setter Name Role Phone Elsewhere, Pcp Primary Care Provider Unavailabl e Encounter Details Date Type Department Care Team (Latest Contact Info) Description 08/30/2023 Intake [facility] Social History Tobacco Use Types Packs/Day Years Used Date Smoking Tobacco: Never Smokeless Tobacco: Never [facility] Utilities Answer Date Recorded In [...] CDT Procedure visit Department of Urology in [place], [place] [address] [place] [address] Burke Strauss M.D. 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
--- OUTSIDE RECORDS SUMMARY | 2023-12-13 12:15 | XMS_ITS | Encounter Summary ---
Author Organization [facility] Address [address] [place] [address] Care Team Providers Care Shirt Ironer Supervisor Name Role Phone Elsewhere, Pcp Primary Care Provider Unavailabl e Encounter Details Date Type Department Care Team (Latest Contact Info) Description 08/13/2023 Intake [facility] Social History Tobacco Use Types Packs/Day Years Used Date Smoking Tobacco: Never Smokeless Tobacco: Never [facility] Utilities Answer Date Recorded In [...] CDT Procedure visit Department of Urology in [place], [place] [address] [place] [address] Burke Strauss M.D. 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
--- OUTSIDE RECORDS SUMMARY | 2023-12-13 12:15 | XMS_ITS | Encounter Summary ---
Author Organization [facility] Address [address] [place] [address] Care Team Providers Care Oven Tender Name Role Phone Elsewhere, Pcp Primary [...] has e electric, gas, oil, or water [facility] threatened to shut off services in your [...] Procedure visit Department of Urology in [address] [address] Burke Strauss M.D. [facility] [place] [phone] Discharge Disposition: Home or Self Care documented [...] on filedocumented in this encounter Care Teams Oven Tender Relationship Specialty Start Date End Date Elsewhere, Pcp PCP - General Internal Medicine 08/13/23 documented as of this encounter
--- OUTSIDE RECORDS SUMMARY | 2023-12-13 12:15 | XMS_ITS | Encounter Summary ---
Author Organization [facility] Address [address] [place] [address] Care Team Providers Care Tumor Registrar Name Role Phone Elsewhere, Pcp Primary Care Provider Unavailabl e Reason for Referral * Outpatient (Routine) - Closed Specialty Diagnoses / Procedures Referred By Contac t Referred To Contact Diagnoses Hematuria Procedures URO Urethral cath change (UCC) Paula Hernandez M.D. [address] [place] [address] [facility] Referral ID Status Reason Start Date Expiration Date Visits Re quested Visits Authorized [id number] Closed 09/15/2023 09/14/2024 1 1 * Outpatient (Routine) - Authorized Specialty Diagnoses / Procedures Referred By Contac t Referred To Contact Radiology Diagnoses Hematuria Procedures IR Nephrostomy Tube Exchange Left Paula Hernandez M.D. [address] [place] [address] [facility] Referral ID Status Reason Start Date Expiration Date V isits Requested Visits Authorized [id number] Authorized 09/15/2023 09/14/2024 1 1 Reason for Visit * Reason Comments Blood in Urine Encounter Details Date Type Department Care Team (Latest Contact Info) Description 09/09/2023 7:24 AM CDT - 09/15/2023 5:28 PM CDT Hospital Encounter [facility], [facility], Sixth Floor [address] [place] [phone] Gerri Merrill M.D., Ph.D. [address] [place] [phone] Sumit Holbrook M.D. [address] [place] [phone] Hematuria (Primary Dx) Discharge Disposition: Home or Self Care Social History Tobacco Use Types Packs/Day Years Used Date Smoking Tobacco: Never Smokeless Tobacco: Never [facility] Nixonities Answer Date Recorded In the past 12 months has [facility] [employer], gas, oil, or water [employer] threatened to shut off services in your [...] your living situation today? I have a [place] home place to live 09/09/2023 Sex and [...] OVERVIEW Hospital: [facility] Discharge Provider: Suimt Holbrook M.D. Primary Team: REHOBOTH MCKINLEY CHRISTIAN [...] IP CONSULT TO UROLOGY IP CONSULT TO RCIS WOUND CARE IP CONSULT TO HYPERBARIC MEDICINE [...] reviewed. GI Function: Last BM Date: 09/11/23, Slope Stool Chart: Type 5: Soft blobs with [...] 86.8 kg (09/09/2023) Current Weight: 84.5 kg [place] Body Weight (Calculated) : 75.3 kg BMI [...] or 5%. Estimated Needs: Total Calorie Needs: 1188-9687 calories/day Method to Estimate Energy Needs: kcal/kg [...] about patient's nutritional care please contact pager [phone] on weekdays 07:30-16:00 or [phone] on weekends/holidays ([facility]). * Clara Luu APRN, C.N.P., D.N.P. [...] [phone] 09/14/23 07 - 09/15/23 0659 Shift [phone] 24 Hour Total 2389-1016 0730-6103 [phone] 24 Hour Total INTAKE Other 30 60 [...] please contact Vascular and Interventional Radiology DEBBI ([phone]). Anticoagulation: A percutaneous nephrostomy tube is considered [...] Please feel free to page the [facility] Inpatient Consult Service at [phone] or the on-call resident at [phone] after 5 PM and on weekends with [...] . Neph tube clear yellow urine. I/O ([id number]): 1.9 L, 1.1 L from the neph [...] questions or concerns. Pager during business hours: [phone] Pager after hours: [phone] * Paula Hernandez M.D. - 09/13/2023 6:05 [...] in place draining clear yellow urine I/O ([id number]): Adequate urine output 2.7 L/248 1 L [...] questions or concerns. Pager during business hours: [phone] Pager after hours: [phone] * Raya Meza Pharm.D., R.Ph., [facility] - 09/12/2023 7:44 AM [...] in place draining clear yellow urine I/O ([id number]): CBI paused for obs Labs: Hb: Hemoglobin [...] Date/Time Bacterial Culture, Aerobic + Susceptibility, Urine [[id number]] (Abnormal) (Susceptibility) Collected: 09/09/23 1128 Lab Status: [...] Susceptible Bacterial Culture, Aerobic + Susceptibility, Urine [[id number]] Collected: 09/03/23 1050 Lab Status: Final result [...] questions or concerns. Pager during business hours: [phone] Pager after hours: [phone] * Js Yang M.D. - 09/11/2023 9:18 [...] [place] [phone] during business hours orat [phone] after hours. * Portillo Crespo Pharm.D., R.Ph., [...] at 0000 Mayur Collier PharmD, LUCERO, BCPS, [facility] Pager [phone] * Js Yang M.D. - 09/10/2023 9:50 [...] Service [place] [phone] during business hours orat [phone] after hours. * Quin Harrell Pharm.D., R.Ph., [...] R.N., C.W.C.N. - 09/09/2023 1:16 PM CDT [place] [...] None Unable to Measure N *Wound Bed Open;[place];Yellow;Fibrin/Slough Tissue Exposed None Odor None *Exudate Amount Small Drainage Description Serous;Perez Janiya-wound Assessment Intact;Fragile;[place];Purple;Maceration;White Periwound Treatment Liquid skin protectant (SurePrep) *Primary Dressing Gelling fiber/Hydrofiber (Aquacel Ag) *Primary Dressing Frequency of Change Daily & PRN *Secondary Dressing Foam (Sacral Mepilex Border) *Secondary Dressing Frequency of Change Daily & PRN Lengthy Treatment > 30 minutes > 30 minutes Ongoing management Nursing;Wound/spooler operator automatic Partial head to toe skin assessment completed [...] PM CDT * Raya Meza Pharm.D., R.Ph., [facility] - 09/09/2023 11:17 AM CDT Images [...] for medicationuse optimization Stephanie Meza, Pharm.D., R.Ph., [facility] Admission Medication History Note Adherence issues: [...] follow Paula Hernandez M.D. Urology PGY-2 Pager #[phone] Please page Chief Urology at [phone] from 7 AM - 5 PM or at [phone] after hours with any questions/concerns. documented in [...] reviewed. GI Function: Last BM Date: 09/11/23, Slope Stool Chart: Type 5: Soft blobs with [...] 86.8 kg (09/09/2023) Current Weight: 84.5 kg [place] Body Weight (Calculated) : 75.3 kg BMI [...] or 5%. Estimated Needs: Total Calorie Needs: 7270-7116 calories/day Method to Estimate Energy Needs: kcal/kg [...] about patient's nutritional care please contact pager [phone] on weekdays 07:30-16:00 or [phone] on weekends/holidays ([facility]). * Clara Luu APRN, C.N.P., D.N.P. [...] admitted for CBI. He was transferred to [facility] after difficultywith irrigating his Jon and CT [...] and recommendations. Please feel free to page [phone] [phone] after 5 PM and on weekends with additional questions. VIR will continue to follow * Alessandra Aguero D.O. - 09/09/2023 5:26 PM CDTAssociated Order(s): IP CONSULT TO VASCULAR MEDICINE VASCULAR MEDICINE CONSULT NOTE Requesting Physician: Gerri Merrill M.D.,* SUBJECTIVE REASON FOR CONSULT: assistance with AC management, patient on plavix and eliquis admitted with refractory hematuria requing CBI. Recommend heparin drip? thanks [facility] [phone] HISTORY OF PRESENT ILLNESS Mr. Vega is [...] stents placed in total (2016, no prior [place], completed after positive stress test) Recommended for [...] for radiation proctitis SOCIAL HISTORY Lives in [place], [place] OBJECTIVE AVSS General: Lying in bed, [...] with Dr. Victoria, the chief urology resident electrical & instrumentation supervisor. Please page chief Urology Service [place] [phone] [place] [phone] after hours. Paula Hernandez M.D. 09/09/23 9:10 [...] End of Shift Summary: Pt [facility]'d [place] [facility] [place]. Patient educated on nephrostomy tube [...] Urology consulted after discussion with the catheter machine operator slitter technician who advised that for this patient they are required to get approval from Urologyprior to placing catheter. ED Course as of 09/09/23 0958 TueSeptember 09, 2023 0822 Hemoglobin(!): 8.9 Down from 9.6 one-week ago 0822 Leukocytes(!): 14.5 New leukocytosis with neutrophilia 0822 INR: 1.1 0823 Discussed with the catheter machine operator slitter technician. Bladder scan showed 125 mL. There [...] CDT Procedure visit Department of Urology in [address] [phone] Burke Strauss M.D. [facility] [place] [phone] Discharge Disposition: Home or Self Care Pending [...] Paula Hernandez M.D. LAB BLOOD ADD-ON [facility] [address] [facility] 200 [place] [address] * Heparin Anti-Xa Assay (09/14/2023 3:19 AM CDT) [facility] Heparin Anti-Xa, P 0.11 IU/mL 2023 [...] Sumit Holbrook M.D. [place] [address] * (ABNORMAL) CBC without Differential (09/14/2023 3:19 AM CDT) [facility] Hemoglobin 10.1(L) 13.2 - 16.6 g/dL 09/14/2023 [...] Paula Hernandez M.D. LAB BLOOD ADD-ON [facility] [address] [place] [address], [facility] [address] [place] [address] * IR Nephrostomy Tube Placement Left (09/13/2023 2:20 PM CDT) Anatomical Region Laterality Modality Genito Urinary, Vascular Int erventional RST LOS, Vascular Interventional ARZ LOS, Vascular Interventional FLA LOS Left X-Ray Angiography Impressions 09/13/2023 2:33 PM CDT Left 10 Zambian percutaneous nephrostomy tube placement. EP Narrative 09/13/2023 [...] tract was further dilated and a 10 [place]ambian nephrostomy tube was placed with loop formed [...] sedation timewas: 9 minutes. IMPRESSION: Left 10 [place]ambian percutaneous nephrostomy tube placement. EP Latisha Whitehead [...] GENERAL ORDERABLES Performing Organization Address City/[facility]/ZIP Co de Phone Number [facility] [address] [place] [address], [facility] [address] [place] [address] * Bacterial Culture, Anaerobic + Susceptibility (09/13/2023 2:17 PM CDT) Bacterial Culture, Anaerobic + Susc No growth after 14 days of incubation. 09/27/2023 8:04 AM CDT DTL Fluid (Kidney, Left) 09/13/2023 2:17 PM CDT 09/13/2023 3:56 PM CDT Comment:Specimen Source Site : Fluid Latisha Whitehead M.D. LAB MICROBIOLOGY - GENERAL ORDERABLES Performing Organization Address City/[facility]/ZIP Co de Phone Number [facility] [address] [place] [address], [place] [facility] [address] [place] [address] * Gram Stain (09/13/2023 2:17 PM CDT) Pathologist [facility] Gram Stain No organisms seen. White blood cells, Rare 09/13/2023 9:02 PM CDT DTL Fluid (Kidney, Left) 09/13/2023 2:17 PM CDT 09/13/2023 3:56 PM CDT Comment:Specimen Source Site : Fluid Latisha Whitehead M.D. LAB MICROBIOLOGY - GENERAL ORDERABLES Performing Organization Address City/[facility]/ZIP Co de Phone Number [facility] [address] [place] [address], [facility] 200 [place] [address] * Bacterial Culture, Aerobic + Susceptibility (09/13/2023 2:17 PM CDT) Pathologist [facility] Bacterial Culture, Aerobic + Susc No growth after 5 days of incubation. 09/18/2023 12:35 PM CDT DTL Fluid (Kidney, Left) 09/13/2023 2:17 PM CDT 09/13/2023 3:56 PM CDT Comment:Specimen Source Site : Fluid Latisha Whitehead M.D. LAB MICROBIOLOGY - GENERAL ORDERABLES Performing Organization Address City/[facility]/ZIP Co de Phone Number [facility] [address] [place] [address], [facility] 200 [place] [address] * (ABNORMAL) CBC without Differential (09/13/2023 5:57 AM CDT) Pathologist [facility] Hemoglobin 9.3(L) 13.2 - 16.6 g/dL 09/13/2023 [...] CDT Ko Victoria M.D. [place] [address], [facility] [address] [place] [address] * Heparin Anti-Xa Assay (09/13/2023 5:56 AM [...] LAB BLOOD NON ADD-ON Performing Organization Address [facility] Co de Phone Number [facility] [address] [place], [place] [address] [place] [address] * APTT (Activated Partial Thromboplastin Time) (09/13/2023 5:56 AM CDT) Pathologist [facility] Activated Partial Thrombopl Time, P 35 25 - 37 sec 09/13/2023 7:14 AM CDT DTL Blood (Blood, Venous) 09/13/2023 5:56 AM CDT 09/13/2023 6:53 AM CDT Sumit Holbrook M.D. LAB BLOOD ADD-ON Performing Organization Address [facility] Co de Phone Number [phone] [place] [address] * (ABNORMAL) Basic Metabolic Panel (09/13/2023 5:56 [...] Paula Hernandez M.D. LAB BLOOD ADD-ON [facility] [address] [place] [address], [place] [facility] [address] [place] [address] * NM Kidney DMSA (09/12/2023 12:21 PM [...] reduced radiotracer uptake asdescribed. Js Yang M.D. [facility] [place] PROCEDURES * Transfuse Red Blood Cells [...] CBC without Differential (09/12/2023 3:42 AM CDT) [facility] Signature Hemoglobin 7.2(L) 13.2 - 16.6 g/dL [...] LAB BLOOD ADD-ON Performing Organization Address [facility]/[place] [address] * (ABNORMAL) APTT (Activated Partial Thromboplastin Time) (09/12/2023 3:42 AM CDT) [facility] Activated Partial Thrombopl Time, P 49(H) 25 - 37 sec 09/12/2023 4:35 AM CDT DTL Blood (Blood, Venous) 09/12/2023 3:42 AM CDT 09/12/2023 4:00 AM CDT Gerri Merrill M.D., Ph.D. LAB BLOOD A DD-ON Performing Organization Address [facility] Co de Phone Number [facility] 200 [place] [address] * (ABNORMAL) Basic Metabolic Panel (09/11/2023 8:23 AM CDT) [facility] Potassium, S 3.5(L) 3.6 - 5.2 mmol/L [...] CDT Js Yang M.D. LAB BLOOD ADD-ON [facility] [address] [address], [facility] [address] [place] [address] * (ABNORMAL) CBC without Differential (09/11/2023 8:23 [...] [facility]/ZIP Co de Phone Number [facility] 200 [place] [address] * (ABNORMAL) APTT (Activated Partial Thromboplastin Time) (09/10/2023 11:42 PM CDT) Pathologist [facility] Activated Partial Thrombopl Time, P 47(H) 25 - 37 sec 09/11/2023 2:05 AM CDT DTL Blood (Blood, Venous) 09/10/2023 11:42 PM CDT 09/11/2023 2:05 AM CDT Gerri Merrill M.D., Ph.D. LAB BLOOD A DD-ON Performing Organization Address [facility]/ZIP Co de Phone Number [facility] 200 [place] [address] * US Urinary Bladder (09/10/2023 8:41 PM [...] LAB BLOOD A DD-ON Performing Organization Address City/[facility]/ZIP Co de Phone Number [facility] [address] [place] [address], [facility] [address] [place] [address] * (ABNORMAL) APTT (Activated Partial Thromboplastin Time) (09/10/2023 10:11 AM CDT) Activated Partial Thrombopl Time, P 63(H) 25 - 37 sec 09/10/2023 10:57 AM CDT DTL Blood (Blood, Venous) 09/10/2023 10:11 AM CDT 09/10/2023 10:40 AM CDT Gerri Merrill M.D., Ph.D. LAB BLOOD A DD-ON [facility] [address] [place] [address], [facility] [address] [place] [address] * (ABNORMAL) CBC without Differential (09/10/2023 3:27 AM CDT) [facility] Hemoglobin 8.1(L) 13.2 - 16.6 g/dL 09/10/2023 [...] Ko Victoria M.D. LAB BLOOD ADD-ON [facility] [address] [place] [address], [facility] [address] [place] [address] * (ABNORMAL) APTT (Activated Partial Thromboplastin Time) (09/10/2023 12:06 AM CDT) [facility] Activated Partial Thrombopl Time, P 57(H) 25 - 37 sec 09/10/2023 1:05 AM CDT DTL Blood (Blood, Venous) 09/10/2023 12:06 AM CDT 09/10/2023 12:33 AM CDT Gerri Merrill M.D., Ph.D. LAB BLOOD A DD-ON Performing Organization Address [facility] Co de Phone Number [facility] [address] [place] [address], [facility] DTL [facility] [address] [place] [address] * APTT (Activated Partial Thromboplastin Time) (09/09/2023 5:08 PM CDT) Activated Partial Thrombopl Time, P 31 25 - 37 sec 09/09/2023 5:24 PM CDT STMA Blood (Blood, Venous) 09/09/2023 5:08 PM CDT 09/09/2023 5:12 PM CDT Ko Victoria M.D. LAB BLOOD ADD-ON Performing Organization Address [facility] Co de Phone Number [facility] [address] [place], [place] [address] STMA [facility] [address] [place] [address] * (ABNORMAL) Dipstick, Urine (09/09/2023 11:28 AM [...] AM CDT 09/09/2023 11:58 AM CDT Jeffery P Church M.D. LAB URINE ORDERA BLES Performing Organization Address City/[facility]/ZIP Co de Phone Number [facility] [address] [place] [address], [facility] [address] [place] [address] * pH, Random, Urine (09/09/2023 11:28 AM CDT) pH, Random, U 6.3 4.5 - 8.0 09/09/2023 12:19 PM CDT DTL Urine 09/09/2023 11:2 8 AM CDT 09/09/2023 11:58 AM CDT Jeffery Church M.D. LAB URINE ORDERA BLES Performing Organization Address City/[facility] Co de Phone Number [facility] [address] [place], [place] [address] [address] [place] [address] * Osmolality, Urine (09/09/2023 11:28 AM CDT) Osmolality, U 380 150 - 1150 mOsm/kg 09/09/2023 12:19 PM CDT DTL Urine 09/09/2023 11:2 8 AM CDT 09/09/2023 11:58 AM CDT Jeffery Church M.D. LAB URINE ORDERA BLES Performing Organization Address City/[facility] Co de Phone Number [facility] [address] [place], [place] [phone] [place] [address] 200 [place] [address] * (ABNORMAL) Microscopic Manual (09/09/2023 11:28 AM [...] LAB URINE ORDERA BLEBryon Performing Organization Address [facility] Co de Phone Number [facility] [address] [place] [address], [facility] [address] [place] [address] * (ABNORMAL) Gram Stain, Urine (09/09/2023 11:28 AM CDT) Source Urine, Urine, Straight Catheter 09/09/2023 11:58 AM CDT DTL Gram Stain, U Positive(A) Negative 09/09/2023 12:16 PM CDT DTL Comment: Few Gram-negative bacilli ? Yeast Urine 09/09/2023 11:2 8 AM CDT 09/09/2023 11:58 AM CDT Jeffery Church M.D. LAB URINE ORDERA BLEBryon Performing Organization Address [facility] de Phone Number [facility] [address] [place] [address], [facility] DTL [facility] [address] [place] [address] * (ABNORMAL) Bacterial Culture, Aerobic + Susceptibility, [...] mcg/mL: Resistant Enterobacter cloacae complex Meropenem SUSCEPTIBILITY, LAOY (MCG/ML) <=0.12 mcg/mL: Susceptible Enterobacter cloacae complex [...] M.D. LAB MICROBIOLOGY - GENERAL ORDERABLES [facility] [address] [place] [address], [place] DTL [facility] [address] [place] [address] * (ABNORMAL) Urinalysis, with Microscopic: Urine, Straight [...] 09/09/2023 1:02 PM CDT DTL Predicted Range [id number] mg/24 h 09/09/2023 1:02 PM CDT DTL Comment Micro done on <2.5 mL 09/09/2023 12:27 PM CDT DTL Urine (Urine, Straight Catheter) 09/09/2023 11:28 AM CDT 09/09/2023 11:58 AM CDT Jeffery Church M.D. LAB URINE ORDERA [facility] [address] [place] [address], [facility] [address] [facility] [place] [address] * US Kidneys Bilateral with Bladder (09/09/2023 [...] Jeffery Church M.D. LAB BLOOD ADD-ON [facility] [address] [place] [address], [facility] STMA [facility] [address] [place] [address] * (ABNORMAL) CBC with Differential, Blood (09/09/2023 [...] Jeffery Church M.D. LAB BLOOD ADD-ON [facility] [address] [place] [address], [facility] ST[facility] [address] [place] [address] [facility] [address] [place] [address] * (ABNORMAL) Basic Metabolic Panel (09/09/2023 8:04 [...] LAB BLOOD ADD-ON Performing Organization Address [facility] Co de Phone Number [facility] [address] [place] [address], [facility] STMA [facility] [address] [place] [address] * Type and Screen (with Reflex Antibody ID) (09/09/2023 8:03 AM CDT) Pathologist [facility] ABORh O Pos Not applicable 09/09/2023 8:47 AM CDT STRM Antibody Screen Negative Negative 09/09/2023 9:02 AM CDT STRM Type & Screen Expiration 09/12/2023 23:59 09/09/2023 8:47 AM CDT STRM Testing Location [place] DEFAULT 09/09/2023 8:10 AM CDT STRM Blood (Blood, Venous) 09/09/2023 8:03 AM CDT 09/09/2023 8:10 AM CDT Jeffery Church M.D. LAB BLOOD BANK T EST ORDERABLES Performing Organization Address [facility] Co de Phone Number [facility] [address] [place] [address], [facility] [address] [place] [address] documented in this encounter Visit Diagnoses Diagnosis [...] catheter 1014 (Given - Provider: Leonardo Clark R.N.)6 (Given - Provider: Lilia Whitney R.N.) 09 [...] heparin resumed 0159 (New Bag - Provider: Lliia Whitney RJonahNJonah)0715 (Stopped - Provider: Leonardo Clark [...] documented as of this encounter Care Teams Tumor Registrar Relationship Specialty Start Date End Date Elsewhere, Pcp PCP - General Internal Medicine 08/13/23 documented as of this encounter
--- OUTSIDE RECORDS SUMMARY | 2023-12-13 12:15 | XMS_ITS | Encounter Summary ---
Author Organization [facility] Address [address] [place] [address] Care Team Providers Care Desk Director Name Role Phone Elsewhere, Pcp Primary Care Provider Unavailabl e Encounter Details Date Type Department Care Team (Late st Contact Info) Description 09/09/2023 Documentation Department of Urology in [place], [place] [address] [place] [address] Ko Victoria M.D. [address] [place] [address] Social History Tobacco Use Types Packs/Day Years Used Date Smoking Tobacco: Never Smokeless Tobacco: Never [facility] Utilities Answer Date Recorded In the past 12 months has [facility] [employer], gas, oil, or water [employer] threatened to shut off services in your [...] CDT Procedure visit Department of Urology in [place], [place] [address] [place] [phone] Burke Strauss M.D. [facility] [place] [phone] Discharge Disposition: Home or Self Care documented as of this encounter Visit Diagnoses Not on filedocumented in this encounter Care Teams Desk Director Relationship Specialty Start Date End Date Elsewhere, Pcp PCP - General Internal Medicine 08/13/23 documented as of this encounter
--- OUTSIDE RECORDS SUMMARY | 2023-12-13 12:15 | XMS_ITS | Encounter Summary ---
Author Organization [facility] Address [address] [place] [address] Care Team Providers Care Milk Runner Name Role Phone Elsewhere, Pcp Primary Care Provider Unavailabl e Encounter Details Date Type Department Care Team (Late st Contact Info) Description 09/06/2023 Clinical Communication [facility] [address] [place] [address] Yasmine Loco Social History Tobacco Use Types Packs/Day Years Used Date Smoking Tobacco: Never Smokeless Tobacco: Never C Utilities Answer Date Recorded In the past 12 months has [facility] [employer], gas, oil, or water [employer] threatened to shut off services in your [...] a [facility] to live 09/09/2023 Sex and Gender Information Value Date Recorded Sex Assigned at Not on file Gender Identity Not on file Sexual Orientation Not on file documented as of this encounter Plan of Treatment Upcoming Encounters Date Type Department Care Team (Latest Contact Info) Description 01/11/2024 9:00 AM CDT Procedure visit Department of Urology in [place], [place] [address] [place] [address] Burke Strauss M.D. [facility] [place] [phone] Discharge Disposition: Home or Self Care documented as of this encounter Visit Diagnoses Diagnosis Hematuria Gross- Primary documented in this encounter Care Teams Milk Runner Relationship Specialty Start Date End Date Elsewhere, Pcp PCP - General Internal Medicine 08/13/23 documented as of this encounter
--- OUTSIDE RECORDS SUMMARY | 2023-12-13 12:16 | XMS_ITS | Data Portability ---
Author Organization [facility], [facility] Address [address] [place] [address] Care Team Providers Care Sql Application Developer Name Role Phone MASOUD SAUER Primary Care Provider [phone] Assessment No assessment recorded. Plan of Treatment Reminders Order Date Submit Date Provider Last Modified By Organization Details Last Modified Time Details Appointments None recorded . Lab urinalys is, dipstick 2023 024 [email or web address] [facility], [address], [address], 4 15:08:54 culture, urine 2023 024 [facility], [address], [place], [address], 4 10:11:11 Referral None recorded . Procedures None recorded . Surgeries cystosco py with ureteral stent exchange (SURG) 2021 022 [email or web address] Not available 16:50:47 cystosco py with ureteral stent exchange (SURG) 2021 022 Not available 15:46:30 Imaging None recorded . Medication Orders Myrbetri q 50 mg tablet,e xtended release 2021 022 [place] [id number], [address] [place], [place], [id number], 2 17:50:02 Bactrim DS 800 mg-160 mg tablet 2023 024 [email or web address] [facility] #[id number], [address] [place], [place], [id number], 16:19:28 Patient TargetsNo targets recorded. Patient InstructionsNo [...] for provi sydni revie w. Not Available [facility] [address], [place], [address], 06/25/2023 10:11:11 06/23/19 24 06/23/2023 urina lysis , dipst ick Color-Status Red Not Available [facility] [address], [place], [address], 06/23/2023 15:08:10 06/23/19 24 06/23/2023 urina lysis , dipst ick pH-Status 7.5 Not Available [facility] [address], [place], [address], 06/23/2023 15:08:10 06/23/19 24 06/23/2023 urina lysis , dipst ick Protein-Stat us >=9.0 Not Available [facility] [address], [place], [address], 06/23/2023 15:08:10 06/23/19 24 06/23/2023 urina lysis , dipst ick Nitrates-Sta tus negati ve Not Available [facility] [address], [place], [address], 06/23/2023 15:08:10 06/23/19 24 06/23/2023 urina lysis , dipst ick Blood-Status Large Not Available [facility] [address], [place], [address], 06/23/2023 15:08:10 06/23/19 24 06/23/2023 urina lysis , dipst ick Leuko-Status Negati ve Not Available [facility] [address], [place], [address], 06/23/2023 15:08:10 06/23/19 24 06/23/2023 urina lysis , dipst ick Specimen Type Voided Not Available [facility] [address], [place], [address], 06/23/2023 15:08:10 07/04/19 24 07/01/2023 CT, abdom en + pelvi s, w/o contr ast No observ ation record ed. [email or web address] [facility] [address], [place], [address], 09/01/2023 14:40:29 07/18/19 24 07/18/2023 XR, kidne y + urete r + bladd er No observ ation record ed. [email or web address] [facility] [address], [place], [address], 07/22/2023 15:56:19 Result Notes None recorded. Procedures Surgical History Date Name Laterality Status Provider Name and Address Organization Details Recorded Time Bladder Scan completed Rabia Ferrell [facility], [facility] 06/23/2023 15:08:00 Cystoscopy completed Nicola Ware MD [address], [place], [address], [facility] 12/30/2021 17:11:17 Colonoscopy completed Nicola Ware MD [address], [place], [address], [facility] 12/30/2021 17:11:22 Imaging Results Imaging Date Name Status LastModified by Organiz ation Details LastModified Time 07/01/2023 CT, abdomen + pelvis, w/o contrast completed [address] [facility] [address] [facility], [place], [address], 09/01/2023 14:40:29 07/18/2023 XR, kidney + ureter + bladder completed [address], [place], [address], 07/22/2023 15:56:19 Procedure Notes None recorded. Medical [...] PY PREP INSTRUCTI ONS RECEIVED FROM [facility] active Not Available Not Available No t Available furosemide 20 mg tablet TAKE 1 TABLET BY MOUTH DAILY active Not Available Not Available No t Available cefuroxime axetil 500 mg tablet active Not Available Not Available No t Available polyethylen e glycol 3350 17 gram/dose oral powder MIX AND DRINK DIRECTED IN [facility] PY PREP INSTRUCTI ONS RECEIVED FROM [facility] active Not Available Not Available No [...] Updated DateTime 12/30/2021 177.8 cm 27.4 kg/m2 64051.14 g Nicola Ware MD [address] [place] [address], [address], [facility] 12/30/2021 17:10:12 Date Recorded Body height Body mass index (BMI) Body weight Provider Name and Address Organization Details Last Updated DateTime 03/12/2022 177.8 cm 27.4 kg/m2 29813.14 g Rabia Ferrell [facility] 03/12/2022 13:55:47 Social History Question Answer Notes LastModified by Organizat ion Details LastModified Time Tobacco Smoking Status Never Smoker Nicola Ware MD [address] [place] [address],[address], [address], [facility] 12/30/2021 17:11:00 What Is [...] Diagnosis/Indication Diagnosis SNOMED-CT Code Diagnosis ICD10 Code [id number] Nicola Ware MD [facility] [address] [place] [address] 12/30/2021 16:01:19 01/01/2022 09:36:50 Increased frequency of urination 981027861 R35.0 Malignant tumor of prostate 823107402 C61 Hydronephrosis 35050127 N13.30 [id number] Aliza aLnderos [facility] [address] [place] [address] 03/12/2022 13:13:50 03/15/2022 14:00:47 Increased frequency of urination 820090230 R35.0 Malignant tumor of prostate 652890733 C61 Hydronephrosis 55001666 N13.30 [id number] Nicola Ware MD [facility] [address] [place] [address] 06/23/2023 14:16:52 06/24/2023 08:40:38 Blood in urine 19355265 R31.9 Health Concerns Section Related Observation LastModified by Organization Detai ls LastModified Time None Recorded Concern Status LastModified by Organization Details LastModified Time None Recorded Advance Directives Directive None Recorded Payers Encounter Date Sequence Insurance Name Policy Number Policy Krishnan Covered Member ID Krishnan Member ID Guarantor Name 12/30/2021 1 [employer] (MEDICARE REPLACEMENT/ ADVANTAGE - PPO) [id number] José Miguel Srinivasan Braucher [id number] José Miguel Srinivasan Braucher 03/12/2022 1 [employer] (MEDICARE REPLACEMENT/ ADVANTAGE - PPO) [id number] José Miguel Srinivasan Braucher [id number] José Miguel D Braucher 06/23/2023 1 [employer] (MEDICARE REPLACEMENT/ ADVANTAGE - PPO) [id number] José Miguel Srinivasan Braucher [id number] José Miguel Vega Notes Date Note Type Note Provider Name and Address Organization Details Recorded Time 12/30/2021 text/html HPI Notes: Excer pt from hospital consultation... 81 y.o. year old male who was admitted to [facility] for gross hematuria & CT [...] of the history. Nicola Ware MD [address], [place], [address], [facility] 12/30/2021 23:07:10 03/12/2022 text/html HPI Notes: Excer pt from hospital consultation... 81 y.o. year old male who was admitted to [facility] for gross hematuria & CT [...] some of the history. Nicola Ware MD [address] [place] [address],[address], [place], [address], [facility] 03/12/2022 17:21:47 06/23/2023 text/html HPI Notes: 83 Y male here after calling triage this AM with hematuria/pain with urination. Patient has stent in place, last exchange 02/08/2022. 06/23/23 visit completed by Curry Ware MD [address] [place] [address],[address], [place], [address], [facility] 06/23/2023 16:19:33
--- OUTSIDE RECORDS SUMMARY | 2023-12-13 12:16 | XMS_ITS | Clinical Summary ---
Author Organization [place] [facility] Address [place], [place] [address] Care Team Providers Care Frame Polisher Name Role Phone Cesar Mccollum MD Primary Care Provider Nicola Ware MD Unavailable [phone] Mireya Tan MD Unavailable [phone] [facility] Unavailable [phone] Allergies No known active allergies Medications Medication [...] iron, carbonyl (Perfect Iron) 25 mg iron tabIndications:Electrical Parts Reconditioner junior blood loss anemia 1 tablet p.o. 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 TGV=452.87 Bladder mass 02/29/2020 04/30/2020 Hematuria 02/29/2020 03/05/2020 Acute deep vein thrombosis (DVT) 02/29/2020 11/20/2020 S/P coronary angioplasty 11/03/2016 Chest pain 09/15/2016 03/05/2020 Elevated prostate specific antigen (PSA) 10/06/2010 03/05/2020 Hip arthritis 10/06/2010 03/05/2020 Colon polyp 07/15/2010 PATRICE (acute kidney injury) Obstructive uropathy 020 Encounters Date Type Department Care Team Description 12/09/2023 Home Care Visit [address] [address] Raffy Carter, PT PT - MISSED VISIT 12/07/2023 Telephone [facility] [address] [place] [address] Cesar Mccollum MD Follow Up 12/05/2023 Home Care Visit [address] [address] Doreen Hussein, JAMEL SN - HOME VISIT 12/02/2023 10:30 AM CDT Home Care Visit [address] [address] Raffy Carter, PT PT - REASSESSMENT 12/02/2023 Plan of Care Documentation [address] [address] 11/30/2023 4:00 PM CDT Home Care Visit [address] [address] Doreen Hussein, RN SN - OASIS RECERTIFICATION 11/30/2023 10:30 AM CDT Office Visit [facility] [address] [place] [address] Cesar Mccollum MD Follow Up; Medication Management (Discuss plavix - not currently taking it) 11/30/2023 Travel 11/25/2023 11:00 AM CDT Home Care Visit [address] [address] Raffy Carter, PT PT - INITIAL ASSESSMENT 11/23/2023 8:00 AM CDT Home Care Visit [address] [address] Brittanie Prieto, JAMEL SN - HOME VISIT 11/21/2023 3:30 PM CDT Home Care Visit [address] [address] R[facility] Heart JAMEL SN - OASIS RESUMPTION OF CARE 11/18/2023 Home Care Visit [address] [address] Rufina Cosby, RN CARE COORDINATION 11/14/2023 11:30 AM CDT Home Care Visit [address] [address] Birttanie Prieto RN SN - MISSED VISIT 11/14/2023 Home Care Visit [address] [address] Raffy Carter, PT PT - OASIS TRANSFER 11/11/2023 10:30 AM CDT Home Care Visit [address] [address] Raffy Carter, PT PT - HOME VISIT 11/09/2023 9:00 AM CDT Home Care Visit [address] [address] Barbara Fuentes RN SN - HOME VISIT 11/07/2023 Home Care Visit [address] [address] Rufina Cosby, RN CARE COORDINATION 11/04/2023 10:30 AM CDT Home Care Visit [address] [address] Raffy Carter, PT PT - HOME VISIT 10/31/2023 11:00 AM CDT Home Care Visit [address] [address] Doreen Hussein RN SN - HOME VISIT 10/31/2023 2:30 AM CDT Home Care Visit [address] [address] Liz Fang SCHOOL AGE PROGRAM ASSOCIATE VICE PRESIDENT INDUSTRIAL RELATIONS - MISSED VISIT 10/28/2023 10:30 AM CDT Home Care Visit [address] [address] Raffy Carter, PT PT - HOME VISIT 10/25/2023 11:30 AM CDT Home Care Visit [address] [address] Raffy Carter, PT PT - REASSESSMENT 10/24/2023 11:00 AM CDT Home Care Visit [address] [address] Doreen Hussein, JAMEL SN - HOME VISIT 10/24/2023 10:00 AM CDT Home Care Visit [address] [address] Liz Fang LICSW VICE PRESIDENT INDUSTRIAL RELATIONS - HOME VISIT 10/21/2023 12:00 PM CDT Home Care Visit [address] [address] Raffy Carter, PT PT - HOME VISIT 10/20/2023 10:35 AM CDT Office Visit [address] [address] Cesar Mccollum MD Follow Up; Concerns (Discuss protocol for hyperbaric treatment at hospital) 10/20/2023 Travel 10/19/2023 9:45 AM CDT Home Care Visit [address] [address] Rigo Heart RN SN - HOME VISIT 10/18/2023 Home Care Visit [address] [address] Milli Torre, RN CARE COORDINATION 10/17/2023 3:00 PM CDT Home Care Visit [address] [address] Raffy Carter, PT PT - HOME VISIT 10/17/2023 10:00 AM CDT Home Care Visit [address] [address] Liz Fang LICSW VICE PRESIDENT INDUSTRIAL RELATIONS - INITIAL ASSESSMENT 10/14/2023 Home Care Visit [address] [address] Raffy Carter, PT PT - MISSED VISIT 10/12/2023 Telephone [facility] [address] [place] [address] Cesar Mccollum MD Questions 10/11/2023 7:15 AM CDT Home Care Visit [address] [address] Manav Montero, RN SN - WOUND/OSTOMY CHART CONSULT 10/10/2023 4:00 PM CDT Home Care Visit [address] [address] Deonna Oliveira, ROLLING MILL OPERATOR PT - HOME VISIT 10/10/2023 10:30 AM CDT Home Care Visit [address] [address] Milli Torre RN SN - HOME VISIT 10/08/2023 9:00 AM CDT Home Care Visit [address] [address] Justyna Hernandez RN SN - INITIAL ASSESSMENT 10/08/2023 Telephone [facility] [address] [place] [address] Cesar Mccollum MD Home Care (BP med parameters) 10/07/2023 11:30 AM CDT Home Care Visit [address] [address] Raffy Carter, PT PT - HOME VISIT 10/07/2023 Home Care Visit [address] [address] Milli Torre RN CARE COORDINATION 10/06/2023 1:00 PM CDT Ancillary Procedure [facility] - [address] [place] [address] 10/06/2023 Travel 10/04/2023 1:00 PM CDT Office Visit [facility] [address] [place] [address] Souleymane Miller MD Follow Up (Annual Follow up /Coronary artery disease) 10/04/2023 10:15 AM CDT Home Care Visit [address] [address] Manav Rodríguez, PT PT - OASIS START OF CARE 10/04/2023 Telephone [facility] [address] [place] [address] Manav Rodríguez, PT Home Care 10/04/2023 Orders Only [facility] [address] [place] [address] Souleymane Miller MD 1 scan: (1-Ord) NFLD-EKG-10/04/23 10/04/2023 Travel 10/04/2023 Plan of Care Documentation [address] [address] 10/03/2023 Telephone [facility] [address] [place] [address] Cesar Mccollum MD Questions 10/02/2023 Home Care Visit [address] [address] Saul Lawson, RN CARE COORDINATION 10/01/2023 Home Care Visit [address] [address] Saul Lawson, RN CARE COORDINATION 09/29/2023 1:40 PM CDT Office Visit [facility] [address] [place] [address] Cesar Mccollum MD Hospital F/U ([place], urinary problem); Concerns (Bed sore - would like checked) 09/29/2023 Travel 09/23/2023 Telephone [facility] [address] [place] [address] Cesar Mccollum MD Results 09/22/2023 10:30 AM CDT Orders Only [facility] [address] [place] [address] Lab, [facility] 09/22/2023 9:50 AM CDT Nurse/Clinic Staff Only [facility] [address] [place] [address] Dressing Change 09/22/2023 Telephone [facility] [address] [place] [address] Cesar Mccollum MD Results 09/22/2023 Travel 09/21/2023 3:20 PM CDT Nurse/Clinic Staff Only [address] [address] Procedure (UA collection from jon and neph tube) 09/21/[address] [address] Letty Mera MD 09/20/2023 2:15 PM CDT Ancillary Procedure [address] [address] 09/20/2023 1:00 PM CDT Office Visit [facility] [address] [place] [address] Letty Mera MD Hospital F/U (Admission Date: 09/09/2023 Discharge Date: 09/15/23); Wound Check (sacrum & neph tube site. ); Home Care; Concerns (Feels like catheter is falling out - pt states that it is leaking. ) 09/20/2023 Travel 09/15/2023 Transcribe Orders [facility] [address] [place] [address] Provider, Non-Excellian 09/13/2023 Telephone [facility] [address] [place] [address] Cesar Mccollum MD Procedure (drug abuse social worker) from Last 3 Months Immunizations Name Administration Dates Next Due COVID-19 Vaccine Spikevax (M oderna 50mcg/0.5mL) 12YO+ [id number] Formula PF 07/21/2023,03/08/2023 COVID-19 vaccine (UShealthrecord-Bio NTech 30mcg/0.3mL) 12YO+ BIVALENT PF, MDV 09/13/2022,01/28/2022 COVID-19 vaccine (Greyson InternationalBio NTech 30mcg/0.3mL) 12YO+ DAYRON-SUCROSE PF, MDV 08/26/2021 COVID-19 vaccine (Greyson InternationalBio NTech 30mcg/0.3mL) PF, MDV 01/13/2021,06/17/2020,2020 Influenza, Inactivated [...] Care Team (Late st Contact Info) Description 12/16/2023 11:00 AM CDT [facility] [address] [place] [address] Raffy Carter, PT [address] [place] [address] 12/23/2023 3:00 AM CDT [facility] [address] [place] [address] Raffy Carter, PT [address] [place] [address] Health Maintenance Due Date Last Done Comments Zoster (shingles) series for age 50+ (1 of 2) 1958 RSV vaccine for adults or (1 - 1-dose 60+ series) 1999 COVID-19 vaccine series ( season) 2023 07/21/2023, [...] Completed 4 Medical Devices Implanted Type Area Manager Product Device Identifier Shelf Expiration Date Model / Serial / Lot Stent [id number] [id number] Contour - [id number] Implanted:Qty: 1 on 07/18/2023 by Nicola Ware MD at [facility] Right: Ureter [facility] 02/27/2026 [id number] / / [id number] Procedures Procedure Name Priority Date/Time Associated Diagnosis Comments HEMOGLOBIN Routine 11/30/2023 11:45 AM CDT Chronic blood loss anemia ECHO TTE COMPLETE WO CONTRAST DEBBI 10/06/2023 1:34 PM CDT Coronary artery disease, unspecified vessel or lesion type, unspecified whether angina present, unspecified whether ivanof bay or transplanted heart EKG 12 LEAD Routine 10/04/2023 2:15 PM CDT Coronary artery disease, unspecified vessel or lesion type, unspecified whether angina present, unspecified whether ivanof bay or transplanted heart MD READING EKG - NO CHARGE, COMP ONLY Routine 10/04/2023 2:14 PM CDT Coronary artery disease, unspecified vessel or lesion type, unspecified whether angina present, unspecified whether ivanof bay or transplanted heart CBC WITH AUTO DIFFERENTIAL [...] * (ABNORMAL) HEMOGLOBIN (11/30/2023 11:45 AM CDT) HEMOGLOBIN 10.4(L) 13.5 - 17.5 g/dL 11/30/2023 11:50 AM CDT [facility] MCV 92 80 - 100 fL 11/30/2023 11:50 AM CDT [facility] Blood BLOOD SPECIMEN / Unknown Venipuncture / Unknown 11/30/2023 11:45 AM CDT 11/30/2023 11:45 AM CDT Csear Mccollum MD HEMATOLOGY [facility] [address] [place] [address], * ECHO TTE COMPLETE WO CONTRAST (10/06/2023 1:34 PM CDT) AORTIC VALVE MEAN PG 10 mmHg EJECTION FRACTION 60 % PEAK TR VELOCITY 2.8 m/s LVEDD 4.2 cm EJECTION FRACTION 65 - 70% Anatomical Region Laterality Modality Ultrasound 10/06/2023 12:5 9 PM CDT Narrative 10/06/2023 2:17 PM CDT ECHOCARDIOGRAM SHYAM SANDS ? Accession#: ?? [id number] : ?1940 83 years Study Date: ?? 10/06/2023 12:59:18 PM Gender: M ?BP: ? 131/72 mmHg Height: 175.26 cm ?BSA: ?1.98 m? ? ? Weight: 81.65 kg ? Tech: ? MBF ? Referring MD: SOULEYMANE MILLER Site: ? [facility] Reading Location: Mobile OP Patient Location: [...] . This study was interpreted by an [facility] accredited facility. ??Final ?? Procedure Note Manav Feliciano MD - 10/06/2023 ECHOCARDIOGRAM SHYAM SANDS : 1940 83 years Study Date: 10/06/2023 12:59:18 PM Gender: M BP: 131/72 mmHg Height: 175.26 cm BSA: 1.98 m? ? ? Weight: 81.65 kg Tech: MB Referring MD: SOULEYMANE MILLER Site: [facility] Reading Location: Circle OP Patient Location: Outpatient. Procedure: 2D, Color [...] . This study was interpreted by an [facility] accredited facility. Final Souleymane Miller MD [...] of2 resultswithin the time period is included. [facility] WHITE BLOOD COUNT 11.0 4.5 - 11.0 thou/cu mm 09/22/2023 10:46 AM CDT [facility] RED BLOOD COUNT 2.81(L) 4.30 - 5.90 mil/cu mm 09/22/2023 10:46 AM CDT [facility] HEMOGLOBIN 8.0(L) 13.5 - 17.5 g/dL 09/22/2023 10:46 AM CDT [facility] HEMATOCRIT 25.2(L) 37.0 - 53.0 % 09/22/2023 10:46 AM CDT [facility] MCV 90 80 - 100 fL 09/22/2023 10:46 AM CDT [facility] MCH 28.5 26.0 - 34.0 pg 09/22/2023 10:46 AM CDT [facility] MCHC 31.7(L) 32.0 - 36.0 g/dL 09/22/2023 10:46 AM CDT [facility] RDW 17.5(H) 11.5 - 15.5 % 09/22/2023 10:46 AM CDT [facility] PLATELET COUNT 466(H) 140 - 440 thou/cu mm 09/22/2023 10:46 AM CDT [facility] MPV 8.9 6.5 - 11.0 fL 09/22/2023 10:46 AM CDT [facility] % NEUT 86.3 % 09/22/2023 10:46 AM CDT [facility] % LYMPH 6.6 % 09/22/2023 10:46 AM CDT [facility] % MONO 5.8 % 09/22/2023 10:46 AM CDT [facility] % EOS 1.2 % 09/22/2023 10:46 AM CDT [facility] % BASO 0.1 % 09/22/2023 10:46 AM CDT [facility] ABSOLUTE NEUTROPHILS 9.5(H) 1.7 - 7.0 thou/cu mm 09/22/2023 10:46 AM CDT [facility] ABSOLUTE LYMPHOCYTES 0.7(L) 0.9 - 2.9 thou/cu mm 09/22/2023 10:46 AM CDT [facility] ABSOLUTE MONOCYTES 0.6 <0.9 thou/cu mm 09/22/2023 10:46 AM CDT [facility] ABSOLUTE EOSINOPHILS 0.1 <0.5 thou/cu mm 09/22/2023 10:46 AM CDT [facility] ABSOLUTE BASOPHILS 0.0 <0.3 thou/cu mm 09/22/2023 10:46 AM CDT [facility] Blood BLOOD SPECIMEN / Unknown Venipuncture / Unknown 09/22/2023 10:39 AM CDT 09/22/2023 10:43 AM CDT [place] [address], * (ABNORMAL) URINE CULTURE (09/21/2023 4:40 PM CDT) Only the most recent of2 resultswithin the time period is included. CULTURE RESULT(A) 09/24/2023 9:54 AM CDT [facility] CULTURE >100,000 CFU/mL Shirin albicans 09/24/2023 9:54 AM CDT [facility] Urine URINE SPECIMEN / Unknown Non-Blood / Unknown 09/21/2023 4:40 PM CDT 09/21/2023 4:41 PM CDT Letty Mera MD MICROBIOLO GY [facility] [address] [place] [address], [place] * XR CHEST 2 VIEWS PA [...] Documents on File Type Date Recorded Patient Customer Service Administrator Expl anation Healthcare Directive 05/15/2021 022 * [...] Code Status Discussion: Reviewed Preferences Care Teams Frame Polisher Relationship Specialty Start Date End Date Cesar Mccollum MD [address] [place] [address] PCP - General Family Practice 03/04/20 Nicola Ware MD [address] [place] [address] Surgery - Urology 03/13/20 Mireya Tan MD [address] [place] [address] Hematology - Pathology 03/13/20 [facility] [address] [place] [address] 09/29/23
== END 2023-12-13 12:11 | disposition home or self-care (01) ==
PROVIDERS: PCP Family Medicine; Visit Provider Nurse Practitioner Family
DX: L89.153 Pressure ulcer of sacral region, stage 3 (principal)
CPT/HCPCS: 72220

== ENCOUNTER 2023-12-16 12:41 | Outpatient (CLI) | payer MEDICARE, OTHER, SELFPAY ==
--- OUTSIDE RECORDS SUMMARY | 2023-12-16 12:43 | XMS_ITS | Referral Summary ---
Author Organization [facility] Address [address] [place] [address] Care Team Providers Care Pharmaceutical Process Engineer Name Role Phone Cesar Mccollum Primary Care Provider [phone] Allergies No known active allergies Medications Medication [...] on file Medical Devices Implanted Type Area Parts Cataloger Device Identifier Shelf Expiration Date Model / Serial / Lot Stent Ureteral Polaris Ultra [id number] - [id number] Implanted:Qty : 1 on 02/08/2022 by Nicola Ware MD at [facility] Stent Right: [employer] [id number] 10/08/2024 [id number] Explanted Type Area Parts Cataloger Device Identifier Shelf Expiration Date Model / Serial / Lot Stent Came Out Of The Right Ureter Explanted:Qty: 1 on 02/08/2022 by Nicola Ware MD at [facility] Right: Urethra Advance Directives For more information, please contact: [phone] Documents on File Type Date Recorded Patient Sanitation Director Expl anation Advance Directives and Living Will 02/17/2022 Health Care Directiv e 05/15/2021 Healthcare Agents on File Name Relationship Healthcare Agent Relationship Communication Mindy Waterman Daughter [employer] Altern[employer] te Health Care Agent Meera Vega Spouse Health Care Agent [phone] (Home) Favio Vega Son Co-[employer] Altern ate Health Care Agent Tereso Vega Son [employer] Alterna te Health Care Agent Care Teams Pharmaceutical Process Engineer Relationship Specialty Start Date End Date Cesar Mccollum [address] [place] [address] PCP - General Family Medicine 11/22/22
--- OUTSIDE RECORDS SUMMARY | 2023-12-16 12:43 | XMS_ITS | Clinical Summary ---
Author Organization [facility] Address [address] [place] [address] Care Team Providers Care Laminate Floor Installer Name Role Phone Elsewhere, Pcp Primary Care Provider Unavailabl e Source Comments Patient records contain information from all sites at [facility]. For routine questions regarding patient records, call [phone] during business hours, M-F 8:00 AM - 5:00 PM Central Time. Record requests for emergency care only can be directed to [phone] at any time[address] Allergies No known active allergies Medications [...] minutes, take the second dose and call [phone] Active tamsulosin (FLOMAX) 0.4 mg 24 [...] teral 11/15/2023 Atherosclerotic Heart Diseas e Of [place] Coronary Artery Without Angina Pectoris 11/15/2023 Overview [...] CDT Nurse Only Department of Urology in [address] [phone] Burke Strauss M.D. Gray, Margaret A, L.PJonahNJonah Nurse Visit (Catheter Irrigation ) Discharge Disposition: Home or Self Care 12/08/2023 9:30 AM CDT Office Visit Department of Urology in [address] [phone] Burke Strauss M.D. Retention Urinary Chronic (Primary Dx); Anemia; Anemia In Neoplastic Disease; Long-Term (Current) Anticoagulant Treatment Discharge Disposition: Home or Self Care 12/07/2023 12:19 PM CDT - 12/07/2023 11:59 PM CDT Hospital Encounter Department of Laboratory Medicine in [address] [phone] Burke Strauss M.D. Anemia; Hematuria Gross; Retention Urinary Chronic Discharge Disposition: Home or Self Care 12/07/2023 10:30 AM CDT Office Visit Department of Urology in [address] [address] Burke Strauss M.D. Hematuria Gross (Primary Dx); Radiation Therapy Cystitis With Hematuria; Anemia; Retention Urinary Chronic Discharge Disposition: Home or Self Care 11/30/2023 6:44 PM CDT - 11/30/2023 8:06 PM CDT Emergency [place] [facility] [address] [place] [phone] Carmen Cherry M.D., M.P.H. Leakage Of Other Urinary Catheter Initial (HCC) (Primary Dx) Discharge Disposition: Home or Self Care 11/15/2023 10:40 AM CDT Ancillary Procedure Department of Wound Ostomy 11/14/2023 11:38 PM CDT - 11/17/2023 3:55 PM CDT Hospital Encounter [facility], Fifth Floor [address] [place] [address] Eliceo Guerrier M.D., Ph.D. Sylvie Álvarez M.B.BJonahSJonah, M.Craig. Rashawn Vences M.D. Burkland, Carl B, M.D. Hematuria Gross (Primary Dx) Discharge Disposition: Home-Health Care [facility] 11/14/2023 10:44 AM CDT - 11/14/2023 10:23 PM CDT Emergency [place] [facility] [address] [place] [phone] Sergio Raza M.D. Hematuria (Primary Dx); Malfunction Mechanical Urethral Catheter Initial (HCC) Discharge Disposition: Acute [facility] 11/14/2023 Documentation Department of Urology in [address] [phone] Sowmya Aviles APRN, C.N.P., M.S.N. 11/14/2023 Intake [facility] 11/10/2023 Clinical Communication Department of Urology in [address] [phone] Burke Strauss M.D. Oncology records request 11/09/2023 11:00 AM CDT Office Visit Department of Urology in [address] [phone] Burke Strauss M.D. Primary Malignant Neoplasm Of Prostate (HCC) (Primary Dx); Retention Urinary Chronic; Hematuria Gross Discharge Disposition: Home or Self Care 11/09/2023 Clinical Communication Department of Urology in [address] [phone] Burke Strauss M.D. 10/27/2023 Clinical Communication Department of Urology in [address] [phone] Burke Strauss M.D. 10/14/2023 1:00 PM CDT Procedure visit Department of Urology in [place], [place] [address] [place] [phone] Paula Hernandez M.D. Reichmann, Lynne G, R.N. Hematuria 10/14/2023 Documentation Department of Urology in [place], [place] [address] [place] [phone] Paula Hernandez M.D. Catheter Care Plan 09/27/2023 Clinical Communication Department of Urology in [place], [place] [address] [place] [phone] Paula Hernandez M.D. 09/21/2023 Clinical Communication Department of Urology in [place], [place] [address] [place] [phone] Paula Hernandez M.D. 09/16/2023 Clinical Communication Department of Urology in [place], [place] [address] [place] [phone] Provider, Unknown follow up questions 09/16/2023 Orders Only Department of Urology in [place], [place] [address] [place] [phone] Paula Hernandez M.D. Hematuria Gross (Primary Dx) 09/15/2023 Clinical Communication [facility] [address] [place] [phone] Yasmine Loco 09/09/2023 7:24 AM CDT - 09/15/2023 5:28 PM CDT Hospital Encounter [facility], Sixth Floor [address] [place] [phone] Gerri Merrill M.D., Ph.D. Sumit Holbrook M.D. Hematuria (Primary Dx) Discharge Disposition: Home or Self Care from Last 3 Months Social History Tobacco Use Types Packs/Day Years Used Date Smoking Tobacco: Never Smokeless Tobacco: Never Tobacco Cessation:Counseling Given: Not Answered [facility] Utilities Answer Date Recorded In the past 12 months has [employer], oil, or water [employer] threatened to shut off services in [...] your living situation today? I have a [facility] place to live 11/15/2023 Sex and [...] CDT Procedure visit Department of Urology in [place], [place] [address] [place] [address] Burke Strauss M.D. [address] [place] [address] Discharge Disposition: Home or Self Care 01/11/2024 10:00 AM CDT Office Visit Department of Urology in [place], [place] [address] [place] [address] Burke Strauss M.D. [address] [place] [address] Discharge Disposition: Home or Self Care Health [...] Completed 11/14/2023 Medical Devices Implanted Type Area Shift Supervisor Rn Device Identifier Shelf Expiration Date Model / Serial / Lot Clp Hrzn Ti 6 Clp Lg Orng - [id number] Implanted:Qt y: 1 on 08/15/2023 by Boubacar Brock M.D. at [facility] Hardware e.g. pins/screws /rods Abdomen [employer] [id number] 02/29/2028 [id number] / / [id number] Clp Hrzn Ti 6 Clp Lg Orng - [id number] Implanted:Qt y: 1 on 08/15/2023 by Boubacar Brock M.D. at [facility] Hardware e.g. pins/screws /rods Abdomen [employer] [id number] 02/29/2028 [id number] / / [id number] Clp Hrzn Ti 6 Clp Md Monty - [id number] Implanted:Qt y: 1 on 08/15/2023 by Boubacar Brock M.D. at [facility] Hardware e.g. pins/screws /rods Abdomen [employer] [id number] 03/13/2028 [id number] / / [id number] 1 Clp Hrzn Ti 6 Clp Md Monty - [id number] Implanted:Qt y: 1 on 08/15/2023 by Boubacar Brock M.D. at [facility] Hardware e.g. pins/screws /rods Abdomen [employer] [id number] 03/21/2028 [id number] / / [id number] 3 Stnt Uret Inl 6fx24 - [id number] Implanted:Qt y: 1 on 08/15/2023 by Jakob De Paz M.D. at [facility] Ureteral Stent N/A: Ureter [employer] [id number] 11/18/2027 [id number] / / [id number] Procedures Procedure Name Priority Date/Time Associated Diagnosis [...] 4:17 PM CDT TESTING LOCATION Routine 11/15/2023 11:0 9 AM CDT WOUND OSTOMY IMAGE EXAM Routine [...] DIFFERENTIAL, B Routine 09/15/2023 3:37 AM CDT from Last 3 Months Results * (ABNORMAL) Hemoglobin (12/07/2023 12:25 PM CDT) Only the most recent of2 resultswithin the time period is included. Hemoglobin 9.2(L) 13.2 - 16.6 g/dL 12/07/2023 12:33 PM CDT NPRG Blood (Blood, Venous) 12/07/2023 12:25 PM CDT 12/07/2023 12:27 PM CDT Burke Strauss M.D. LAB BLOOD ADD-ON Performing Organization Address City/[facility]/ZIP Co de Phone Number [facility] [address] [place] [address], [facility] NPRG [address] [address] * Creatinine with Estimated GFR (12/07/2023 12:25 PM CDT) Creatinine 1.13 0.74 - 1.35 mg/dL 12/07/2023 12:49 PM CDT NPRG Estimated GFR (eGFR) 64 >=60 mL/min/BSA 12/07/2023 12:49 PM CDT NPRG Comment: Estimated GFR calculated using the 2020 CKD_EPI creatinine equation. Blood (Blood, Venous) 12/07/2023 12:25 PM CDT 12/07/2023 12:27 PM CDT Burke Strauss M.D. LAB BLOOD ADD-ON [facility] [address] [place] [address], [address] [address] * (ABNORMAL) CBC without Differential (11/17/2023 7:24 AM CDT) Only the most recent of2 [...] BLOOD ADD-ON [facility] [address] [place] [address], [facility] [place] [address] * (ABNORMAL) Basic Metabolic Panel (11/17/2023 7:24 AM CDT) Only the most recent of2 [...] BLOOD ADD-ON [facility] [address] [place] [address] * Glucose, POCT (11/17/2023 6:45 AM CDT) Glucose, POCT, B 107 70 - 140 mg/dL 11/17/2023 6:45 AM CDT MKTO Blood 11/17/2023 6:45 AM CDT 11/17/2023 7:03 AM CDT Generic Rals LAB POCT ORDERABLES- MANUAL [facility] [address] [place] [address] * (ABNORMAL) CBC with Differential, Blood (11/16/2023 [...] CDT Rashawn Vences M.D. LAB BLOOD ADD-ON [facility] [address] [place] [address], [facility] MKTO [facility] in [place] [address] [place] [address] * (ABNORMAL) Comprehensive Metabolic Panel (11/16/2023 6:25 [...] CDT Rashawn Vences M.D. LAB BLOOD ADD-ON [facility] [address] [place] [address] * Transfuse Red Blood Cells : (11/15/2023 6:35 PM CDT) Madelyn Cesar D.O. BLOOD TRANSFUSION OR DERABLES * Testing Location (11/15/2023 11:09 AM CDT) Testing Location [facility] DEFAULT 11/15/2023 11:47 AM CDT MKTO Blood 11/15/2023 11:0 9 AM CDT 11/15/2023 11:47 AM CDT Sergio Raza M.D. LAB BLOOD BANK TEST ORDERABLES Performing Organization Address City/[facility] Co de Phone Number [facility] [address] [place] [address], [place] [address] * Coccyx-Wound Ostomy Image Exam (11/15/2023 10:40 [...] RAD IMAGI NG PROCEDURES Performing Organization Address [facility] de Phone Number [facility] NA * ECG 12 Lead (11/15/2023 6:47 AM CDT) Pathologist [facility] Ventricular Rate ECG/Min 65 BPM MUSE [place] Interval 144 ms MUSE QRSD Interval 76 ms MUSE QT Interval 430 ms MUSE QTC Interval 447 ms MUSE P [place] -7 degrees MUSE R [place] 9 degrees MUSE T Wave [place] 19 degrees MUSE 11/15/2023 6:47 AM CDT [...] M.D. ECG ORD ERABLES Performing Organization Address [facility] de Phone Number MUSE [...] to determine due to color interference Specific [place] SEE COMMENT 1.001 - 1.035 11/15/2023 8:03 AM CDT MKTO Comment:Unable to determine due to color interference Urobilinogen SEE COMMENT 0.2 - 1.0 mg/dL 11/15/2023 8:03 AM CDT MKTO Comment:Unable to determine due to color interference Urine (Urine, Midstream) 11/15/2023 6:25 AM CDT 11/15/2023 6:34 AM CDT Sylvie Wright M.D. LAB URI NE ORDERABLES [facility] [address] [place] [address], [facility] [place] [address] * (ABNORMAL) Microscopic Automated (11/15/2023 6:25 AM [...] LAB URI NE ORDERABLES Performing Organization Address [facility] Co de Phone Number [facility] [address] [place] [address] * Bacterial Culture, Aerobic + Susceptibility, Urine (11/15/2023 6:24 AM CDT) Urine Culture Urogenital microbiota, susceptibilities not performed per laboratory criteria. 11/16/2023 11:36 AM CDT MKTO Urine (Urine, Indwelling Catheter) 11/15/2023 6:24 AM CDT 11/15/2023 9:29 AM CDT Comment:Specimen Source Site : Urine Zachery Tanner APRN C.N.P., M.S. LAB MICROBIOLOGY - GENERAL ORDERABLES Performing Organization Address [facility] Co de Phone Number [facility] [address] [place] [address] * CT Abdomen Pelvis without IV Contrast [...] Raza M.D. LAB BLOOD BANK TEST ORDERABLES [facility] [address] [place] [address], [facility] NPRG [facility] [address] [place] [address] * Type and Screen (with Reflex Antibody [...] Raza M.D. LAB BLOOD BANK TEST ORDERABLES [facility] [address] [place] [address], [facility] NPRG [facility] [address] [place] [address] from Last 3 Months Advance Directives For more information, please contact: [phone] * Full Code (Latest Code Status on [...] Answer Comments Full Code: Discussed Care Teams Laminate Floor Installer Relationship Specialty Start Date End Date Elsewhere, Pcp PCP - General Internal Medicine 08/13/23
--- OUTSIDE RECORDS SUMMARY | 2023-12-16 12:43 | XMS_ITS | Clinical Summary ---
Author Organization [facility] Address [address] [place] [address] Care Team Providers Care Reproductive Surgeon Name Role Phone Cesar Mccollum Primary Care Provider [phone] Allergies No known active allergies Medications Medication [...] this topic Medical Devices Implanted Type Area Punchboard Filling Machine Operator Device Identifier Shelf Expiration Date Model / Serial / Lot Stent Ureteral Polaris Ultra [id number] - [id number] Implanted:Qty : 1 on 02/08/2022 by Nicola Ware MD at [facility] Stent Right: Ureter [employer] [id number] 10/08/2024 [id number] Explanted Type Area Punchboard Filling Machine Operator Device Identifier Shelf Expiration Date Model / Serial / Lot Stent Came Out Of The Right Ureter Explanted:Qty: 1 on 02/08/2022 by Nicola Ware MD at [facility] Right: Urethra Advance Directives For more information, please contact: [phone] Documents on File Type Date Recorded 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
--- OUTSIDE RECORDS SUMMARY | 2023-12-16 12:44 | XMS_ITS ---
Author Organization [facility] Address [address] [place] [address] Care Team Providers Care Foot Miter Operator Name Role Phone Unavailable Unavailable Unavailable Surgery Details Not on file Complications Check Surgery Details section. Procedure Estimated Blood Loss Check Surgery Details section. Procedure Findings Check Surgery Details section. Procedure Specimens Taken Check Surgery Details section.
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
--- OUTSIDE RECORDS SUMMARY | 2023-12-16 12:44 | XMS_ITS | Encounter Summary ---
Author Organization [facility] Address [address] [place] [address] Care Team Providers Care Small Parts Shaper Operator Name Role Phone Elsewhere, Pcp Primary Care Provider Unavailabl e Encounter Details Date Type Department Care Team (Late st Contact Info) Description 11/14/2023 Documentation Department of Urology in [place], [place] [address] [place] [address] Sowmya Aviles, ARUN, C.N.P., M.S.N. [address] [place] [phone] Social History Tobacco Use Types Packs/Day Years Used Date Smoking Tobacco: Never Smokeless Tobacco: Never [facility] Utilities Answer Date Recorded In the [...] [facility] 11/15/2023 Sex and Gender Information Value Date Recorded Sex Assigned at Not on file Gender Identity Not on file Sexual Orientation Not on file documented as of this encounter Progress Notes * Sowmya Aviles, ARUN, C.N.P., M.S.N. - 11/14/2023 3:31 PM CDT Contacted via [facility] regarding this patient. Not personally seen or evaluated as patient is in the [facility] Emergency Department. aKlen Vega is a 83 y.o. male with medical comorbidities of acute DVT on Plavix, coronary artery disease status post stent, degenerative joint disease, hyperlipidemia, lymphedema, prediabetes. 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 Tan in [place], [place]. Right hydronephrosis and right atrophic kidney [...] was readmitted to hospital. He presented to [facility] Emergency Department today for evaluation of hematuria and no drainage into urinary catheter. He reports leakage around the catheter of urine and blood clots. A 22 Beninese three-way catheter was placed, patient was hand [...] CDT Procedure visit Department of Urology in [place], [place] [address] [place] [address] Burke Strauss M.D. [facility] [place] [address] Discharge Disposition: Home or Self Care 01/11/2024 10:00 AM CDT Office Visit Department of Urology in [place] [address] [place] [address] Burke Strauss M.D. [address] [place] [phone] Discharge Disposition: Home or Self Care documented as of this encounter Visit Diagnoses Not on filedocumented in this encounter Care Teams Small Parts Shaper Operator Relationship Specialty Start Date End Date Elsewhere, Pcp PCP - General Internal Medicine 08/13/23 documented as of this encounter
--- OUTSIDE RECORDS SUMMARY | 2023-12-16 12:44 | XMS_ITS | Encounter Summary ---
Author Organization [facility] Address [address] [place] [address] Care Team Providers Care Boxing Promoter Name Role Phone Elsewhere, Pcp Primary Care Provider Unavailabl e Reason for Referral * Outpatient (Routine) - Authorized Specialty Diagnoses / Procedures Referred By Contac t Referred To Contact Diagnoses Hematuria Gabe Neal M.D. [address] [place] [address] Referral ID Status Reason Start Date Expiration Date V isits Requested Visits Authorized [id number] Authorized 11/17/2023 05/18/2025 1 1 Encounter Details Date Type Department Care Team (Late st Contact Info) Description 11/14/2023 11:38 PM CDT - 11/17/2023 3:55 PM CDT Hospital Encounter [facility], Fifth Floor [address] [place] [address] Eliceo Guerrier M.D., Ph.D. [address] [place] [address] Sylvie Álvarez M.B.B.S., M.D. [address] [place] [address] Rashawn Vences M.D. [address] [place] [address] Gabe Buckley M.D. [address] [place] [address] Smith Peter (Primary Dx) Discharge Disposition: Home-Health Care Svc Social History Tobacco Use Types Packs/Day Years Used Date Smoking Tobacco: Never Smokeless Tobacco: Never [facility] Utilities Answer Date Recorded In the past 12 months has [facility] [employer], gas, oil, or water [employer] threatened to shut off services in [...] have a [facility] place to live 11/15/2023 Sex and [...] M.D. Primary Care Providers: Dr. 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 Cesar Mccollum to discuss restarting OUTPATIENT FOLLOW UP Scheduled Appointments 12/07/2023 10:15 AM [facility] 01 NPNC; URO NURSE [...] filter and chronic pressure wounds presented to [facility] 11/14/23 gross hematuria including around his indwelling [...] discussed with Dr. Gabe Rivas DO. PGY-1 [facility] Family Medicine Residency [place] Associated attestation - Gabe Buckley M.D. - [...] 83 y.o. male who was admitted to [facility] 11/14/2023 due to Hematuria Gross [R31.0]. Patient was accompanied by son, Kar. This auto service writer finalized arrangements for resumption of home health care services. 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 INTERVENTION This auto service writer sent a service reconnection, including resumption of care order, to resumption of home health care services to [facility] as the fax number matches the fax [...] Muscle Mass: Normal Fluid Accumulation: Absent Reduced Tenant Selector Strength: Not applicable This is in the [...] 83 y.o. male who was admitted to [facility] 11/14/2023 due to Hematuria Gross [R31.0]. Patient was accompanied by daughter (Mindy) and son (Kar). This auto service writer continues to assist in home health care reconnection. 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 INTERVENTION Patient's daughter, Mindy, provided this auto service writer with contact information for Doreen Javier, nurse day care home mother for [facility]; [phone]. This auto service writer left Doreen a voicemail, requesting a [...] bag -monitor CMP for kidney function -continue HEAD OF ART tamsulosin -continue HEAD OF ART enzalutamide -urine culture, per urology # Coronary artery disease without angina pectoris, status post 6 stents # History of DVTs, status post IVC filter # Hyperlipidemia Is on both Plavix and Xarelto at home. -start Xarelto 11/16/2023 so response can be monitored while hospitalized -continue HEAD OF ART amlodipine -continue HEAD OF ART rosuvastatin -continue HEAD OF ART metoprolol # Chronic Pressure Wound, Coccyx -continue wound care -offloading as much as possible Non-severe (moderate) Malnutrition (11/15/23) The patient meets the ASPEN Criteria of malnutrition based on: Energy Intake: Less than 75% of estimated energy requirement for greater than or equal to 1 month Interpretation of Weight Loss: 7.5% 3 months Body Fat: Normal Muscle Mass: Normal Fluid Accumulation: Absent Reduced Tenant Selector Strength: Not applicable This is in the [...] Gabe Buckley M.D. Candelaria Rivas DO. PGY-1 [facility] Family Medicine Residency [place] Associated attestation - Gabe Buckley M.D. - 11/16/2023 6:25 PM CDT I saw and evaluated the patient, participating in the henderson portions of the service. I reviewed the resident/fellow???s note. I agree with the resident/fellow???s findings and plan. 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 [...] recommendations -monitor CMP for kidney function -continue HEAD OF ART tamsulosin -continue HEAD OF ART enzalutamide -urine culture, per urology # Coronary artery disease without angina pectoris, status post 6 stents # History of DVTs, status post IVC filter # Hyperlipidemia Is on both Plavix and Xarelto at home. Urology recommendations on restarting blood thinners. -may consider restarting one or both on 11/16/2023 so response can be monitored while hospitalized -continue HEAD OF ART amlodipine -continue HEAD OF ART rosuvastatin -continue HEAD OF ART metoprolol # Chronic Pressure Wound, Coccyx -continue wound care -offloading as much as possible Non-severe (moderate) Malnutrition (11/15/23) The patient meets the ASPEN Criteria of malnutrition based on: Energy Intake: Less than 75% of estimated energy requirement for greater than or equal to 1 month Interpretation of Weight Loss: 7.5% 3 months Body Fat: Normal Muscle Mass: Normal Fluid Accumulation: Absent Reduced Tenant Selector Strength: Not applicable This is in the [...] Rashawn Vences M.D. Candelaria Rivas DO. PGY-1 [facility] Family Medicine Residency [place] Associated attestation - Rashawn Vences M.D. - [...] other issues. He showed up in the [facility] room yesterday with complaints of a [...] and visits for hematuria. Patient presented at [facility] yesterday because of bleeding around his [place] [...] vomiting, no abdominal pain. Patient presented at [facility] where urology was contacted, manual bladder irrigation [...] anemia, hemoglobin now 8.2. Patient presented to [facility] ED because of bleeding around his [place] catheter. At [facility], patient had manual bladder irrigation with normal [...] CDTAssociated Order(s): Dietitian consult (hospital); Dietitian Consult ([facility]) Dietitian Consult (Hospital) Referring Provider: Bolivar [...] had lost 28lbs during his stay in [place] as he was NPO for12 days then [...] Muscle Mass: Normal Fluid Accumulation: Absent Reduced Tenant Selector Strength: Not applicable This is in the [...] 84.1 kg BMI (Calculated): 26.6 kg/m?? % [place] Body Weight: 111 % IBW Adjusted Body [...] assessment, Discharge Planning, Other (comment) Primary Language: Somali School Psychologist Assistant Services Used: No Sexuality/Pronoun: / Person(s) present [...] Neoplastic Disease #4 Atherosclerotic Heart Disease Of [place] Coronary Artery Without Angina Pectoris #5 Deficiency Iron #6 Hyperlipidemia #7 Hypertension Essential Primary #8 Traffic Expert Current Use Of Other Agents Affecting Estrogen Receptors And Estrogen Levels #9 Radiation Therapy Proctitis #10 Inferior Vena Cava Filter #11 Traffic Expert (Current) Anticoagulant Treatment Social History Marital Status: Family / Household: Lives with and son, Gavin. Has another son (Kar) and a daughter (Mindy). Support System: spouse and children Spirituality/Mandaen/Cultural Factors: None History: No Highest Level of [...] Cooperative, Oriented Communication: Talks, Understands speaking, Understands Somali Shopping: Appropriate to age/development Medication Management: Independent Housekeeping: Appropriate to age/development Meal Prep: Appropriate to age/development Assistive Devices: Eyeglasses, Hearing aid(s) Agency Name: [facility] Services Provided: group home once weekly for wound care, PT, social work, DarwinRN day care home mother Transportation: Support from family Baseline Services/Resources Primary care clinic and provider: ELSEWHERE, PCP Anticipated Needs Functional Status: Tasks appropriate to patient's age/development, Transportation use (drive car, use taxi/bus) Assistive Devices: Eyeglasses, Hearing aid(s) Services/Resources: Home health Agency Name: [facility] Provided: group home once weekly for wound care, PT, social work, Makenzie day care home mother Does the patient need discharge transport arranged?: No Anticipated Discharge Destination: Home-Health Care Svc OBJECTIVE Substance Abuse no symptoms Mental Health Mental Health History: Patient reports no mental health history Patient reports no current concerns Mental Health Treatment History No history of Psychiatric Treatment noted Suicide Risk and Safety Risk Assessment: C-SSRS Short Version: [place] Suicide Severity Rating Scale (Do this one [...] a wound clinic the other day. This auto service writer spoke to intake with [facility] however the only information provided is that patient is served by the [facility] location and receives nursing home, physical therapy, and social work and the fax number for discharge paperwork was provided. Interventions Psychosocial assessment completed. Provided supportive services. Provided education regarding the role of social work. Plan It is anticipated patient will return home with family and resume services through [facility]. Martha Gardiner 11/15/2023 * Jerri Toledo R.N., [place], [facility] - 11/15/2023 10:54 AM CDTAssociated Order(s): [...] and visits for hematuria. Patient presented at [facility] yesterday because of bleeding around his [place] [...] vomiting, no abdominal pain. Patient presented at [facility] where urology was contacted, manual bladder irrigation with normal saline was performed, and patient was started on CBI. Patient transferred to [place] for further management. WOUND ASSESSMENT: Wound Type: Pressure Injury IP Pressure Injury Staging: Stage 3 Wound Location: Coccyx Wound Orientation: Mid Wound Tunnel/Induration: Length 1 cm, Width 0.5 cm, and Depth 0.3 cm. Wound Bed Tissue: Red and Granulation tissue 100% Leslee-Wound Skin: Blanchable erythema, Maceration, and [place] PLAN: COCCYX: DAILY 1. Cleanse wound with [...] limit sliding down in chair. Please contact [facility] RNs if you have any question or concerns regarding wound care. Jerri Toledo R.N., LYNNE at [phone] Starla Méndez R.N., CWCN at [phone] * Zachery Tanner, ARUN, C.N.P., M.S. - 11/15/2023 8:06 AM CDTAssociated Order(s): Urology consult (hospital) SUBJECTIVE Urology consult (hospital) Referring Provider: Rashawn Vneces M.D. REASON FOR CONSULT Gross hematuria HISTORY [...] follows with Medical Oncology Dr. Tan in [place], [place]. Right hydronephrosis and right atrophic kidney [...] 08/30. Currently undergoing outpatient hyperbaric O2 in [facility]. Mr. Vega currently admitted to [facility] in the setting of recurrent gross hematuria. He wasseen in evaluation at [facility] Emergency Department in the setting of [...] in comparison to historical imaging. Ultimately [address] catheter was placed and patient was hand irrigated and initiated on CBI.Patient was transferred to [facility] for ongoing management. Urinalysis [...] undergoing outpatient HBO (hyperbaric oxygenation therapy) in [facility]. Recommend to continue HBO in the outpatient [...] hematuria. Outpatient appointment scheduled on 12/07/2023 in [facility] with Urology. Could consider discussion about catheter removal/formal voiding trial in the outpatient setting as to limit catheter irritation/potential infection risk contributing to hematuria. Significant pyuria on urinalysis in the setting of his gross hematuria would recommend urine culture. 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 Tan in [place], [place]. Per subjective report today undetectable PSA. [...] discussed with Dr. Valdez. Zachery Tanner APRN PURCHASE REQUEST EDITOR Associated attestation - Manav Valdez M.D. - [...] Summary: Pt is a direct admit from [facility] ED. He has chronic indwelling catheter, with prostate cancer history. He noticed urine was bloody red. While being seen in [facility], 3 waycatheter was inserted and CBI started. [...] filter and chronic pressure wounds presented to [facility] 11/14/23 gross hematuria including around his indwelling [...] Procedure visit Department of Urology in [address] [phone] Burke Strauss M.D. [address] [place] [phone] Discharge Disposition: Home or Self Care 01/11/2024 10:00 AM CDT Office Visit Department of Urology in [address] [address] Burke Strauss M.D. [address] [place] [phone] Discharge Disposition: Home or Self Care Pending Results Name Type Priority Associated Diagnoses Date /Time Prepare Red Blood Cells, 1 Units Blood Bank Routine 11/14/2023 11:09 AM CDT Scheduled Referrals Name Type Priority Associated Diagnoses Orde r Schedule Non-[facility] referral Outpatient Referral Routine Hematuria Gross [...] CDT Candelaria Rivas D.O. LAB BLOOD [facility] [address] [place] [address], [facility] MKTO [facility] [place] [address] * (ABNORMAL) Basic Metabolic Panel (11/17/2023 7:24 [...] CDT Candelaria Rivas D.O. LAB BLOOD ADD-ON [facility] [address] [place] [address] * Glucose, POCT (11/17/2023 6:45 AM CDT) Glucose, POCT, B 107 70 - 140 mg/dL 11/17/2023 6:45 AM CDT MKTO Blood 11/17/2023 6:45 AM CDT 11/17/2023 7:03 AM CDT Generic Rals LAB POCT ORDERABLES- MANUAL Performing Organization Address City/[facility] Co de Phone Number [facility] [address] [place] [address] * (ABNORMAL) Hemoglobin (11/16/2023 4:43 PM CDT) Hemoglobin 9.2(L) 13.2 - 16.6 g/dL 11/16/2023 5:13 PM CDT MKTO Blood (Blood, Venous) 11/16/2023 4:43 PM CDT 11/16/2023 5:10 PM CDT Madelyn Cesar D.O. LAB BLOOD ADD-ON [facility] [address] [place] [address] * (ABNORMAL) Comprehensive Metabolic Panel (11/16/2023 6:25 [...] CDT Rashawn Vences M.D. LAB BLOOD ADD-ON [facility] [address] [place] [address], [facility] MKTO [facility] in [place] [address] [place] [address] * (ABNORMAL) CBC with Differential, Blood (11/16/2023 [...] CDT Rashawn Vences M.D. LAB BLOOD ADD-ON [facility] [address] [place] [address], [facility] MKTO [facility] [place] [address] [place] [address] * Transfuse Red Blood Cells : (11/15/2023 6:35 PM CDT) Madelyn Cesar D.O. BLOOD TRANSFUSION OR DERABLES * Transfuse Red Blood Cells : , 1 Units (11/15/2023 6:35 PM CDT) Madelyn Cesar D.O. BLOOD TRANSFUSION OR DERABLES * (ABNORMAL) Comprehensive Metabolic Panel (11/15/2023 7:31 AM CDT) [facility] Potassium, P 4.2 3.6 - 5.2 mmol/L [...] Sylvie Wright M.D. LAB BLO OD ADD-ON [facility] [address] [place] [address], [facility] [place] [address] * (ABNORMAL) CBC with Differential, Blood (11/15/2023 [...] Sylvie Wright M.D. LAB BLO OD ADD-ON [facility] [address] [place] [address], [facility] MKTO [facility] [place] [address] * ECG 12 Lead (11/15/2023 6:47 AM CDT) Ventricular Rate ECG/Min 65 BPM MUSE MN Interval 144 ms MUSE QRSD Interval 76 ms MUSE QT Interval 430 ms MUSE QTC Interval 447 ms MUSE P [place] -7 degrees MUSE R [place] 9 degrees MUSE T Wave [place] 19 degrees MUSE 11/15/2023 6:47 AM CDT [...] M.D. ECG ORD ERABLES Performing Organization Address City/[facility]/ZIP Co de Phone Number MUSE NA [...] LAB URI NE ORDERABLES Performing Organization Address [facility] Co de Phone Number [facility] [address] [place] [address], [facility] MKTO [facility] [place] [address] [place] [address] * (ABNORMAL) Urinalysis with Microscopic if Indicated [...] to determine due to color interference Specific [place] SEE COMMENT 1.001 - 1.035 11/15/2023 8:03 AM CDT MKTO Comment:Unable to determine due to color interference Urobilinogen SEE COMMENT 0.2 - 1.0 mg/dL 11/15/2023 8:03 AM CDT MKTO Comment:Unable to determine due to color interference Urine (Urine, Midstream) 11/15/2023 6:25 AM CDT 11/15/2023 6:34 AM CDT Sylvie Wright M.D. LAB URI NE ORDERABLES Performing Organization Address [facility] Co de Phone Number [facility] [address] [place] [address] * Bacterial Culture, Aerobic + Susceptibility, Urine (11/15/2023 6:24 AM CDT) Urine Culture Urogenital microbiota, susceptibilities not performed per laboratory criteria. 11/16/2023 11:36 AM CDT [facility] Urine (Urine, Indwelling Catheter) 11/15/2023 6:24 AM CDT 11/15/2023 9:29 AM CDT Comment:Specimen Source Site : Urine Zachery Tanner APRN, C.N.P., M.S. LAB MICROBIOLOGY - GENERAL ORDERABLES Performing Organization Address [facility] Co de Phone Number [facility] [address] [place] [address] documented in this encounter Visit Diagnoses Diagnosis Hematuria Gross- Primary Hematuria Gross Primary Malignant Neoplasm Of Prostate (HCC) Anemia In Neoplastic Disease Traffic Expert Current Use Of Other Agents Affecting Estrogen Receptors And Estrogen Levels Hypertension Essential Primary Hyperlipidemia Deficiency Iron Radiation Therapy Proctitis Atherosclerotic Heart Disease Of [place] Coronary Artery Without Angina Pectoris Inferior Vena Cava Filter Assisted (Current) Anticoagulant Treatment documented in this encounter [...] R.N.) documented in this encounter Care Teams Boxing Promoter Relationship Specialty Start Date End Date Elsewhere, Pcp PCP - General Internal Medicine 08/13/23 documented as of this encounter
--- OUTSIDE RECORDS SUMMARY | 2023-12-16 12:44 | XMS_ITS | Encounter Summary ---
Author Organization [facility] Address [address] [place] [address] Care Team Providers Care Events Administrative Assistant Name Role Phone Elsewhere, Pcp Primary Care Provider Unavailabl e Encounter Details Date Type Department Care Team (Latest Contact Info) Description 11/14/2023 Intake [facility] Social History Tobacco Use Types Packs/Day Years Used Date Smoking Tobacco: Never Smokeless Tobacco: Never [facility] Utilities Answer Date Recorded In the past [...] your living situation today? I have a [facility] place to live 11/15/2023 Sex and Gender Information Value Date Recorded Sex Assigned at Not on file Gender Identity Not on file Sexual Orientation Not on file documented as of this encounter Plan of Treatment Upcoming Encounters Date Type Department Care Team (Latest Contact Info) Description 01/11/2024 9:00 AM CDT Procedure visit Department of Urology in [place] [address] [place] [address] Burke Strauss M.D. [address] [place] [phone] Discharge Disposition: Home or Self Care 01/11/2024 10:00 AM CDT Office Visit Department of Urology in [place] [address] [place] [address] Burke Strauss M.D. [address] [place] [phone] Discharge Disposition: Home or Self Care documented as of this encounter Visit Diagnoses Not on filedocumented in this encounter Care Teams Events Administrative Assistant Relationship Specialty Start Date End Date Elsewhere, Pcp PCP - General Internal Medicine 08/13/23 documented as of this encounter
--- OUTSIDE RECORDS SUMMARY | 2023-12-16 12:44 | XMS_ITS ---
Author Organization [facility] Address [address] [place] [address] Care Team Providers Care Vehicle Assembly Inspector Name Role Phone Elsewhere, Pcp Primary Care Provider Unavailabl e Active Problems Problem Noted Date Diagnosed Date Radiation Therapy Cystitis With Hematuria 2023 Anemia In Neoplastic Disease 11/15/2023 Acute Embolism And Thrombosis Of Iliac Vein Bila teral 11/15/2023 Atherosclerotic Heart Diseas e Of [place] Coronary Artery Without Angina Pectoris 11/15/2023 Overview (11/15/2023): stent placements 2017 Complication Procedure Initial 11/15/2023 Deficiency Iron 11/15/2023 Hyperlipidemia 11/15/2023 Hypertension Essential Primary 11/15/2023 Shelter Current Use Of Oth er Agents Affecting Estrogen Receptors And Estrogen Levels 11/15/2023 Presence Of Other Vascular Implants And Grafts 0 11/15/2023 Other Specified Disorders Of Bladder 11/15/2023 Other Retention Of Urine 11/15/2023 PreDiabetes 11/15/2023 Presence Of Urogenital Implants 11/15/2023 Unspecified Complication Of Genitourinary Prosthetic Device Implant And Graft Initial 11/15/2023 Inferior Vena Cava Filter 11/15/2023 Loss Prevention Operations Manager (Current) Anticoagulant Treatment 09/2023 Presence Of Other [...] On Elapsed Days Session Dose Total Dose [id number] 04/28/2020 32 300 cGy 6,000 cGy Lifetime Dose Tracking * Chemical Lifetime Dose Automatic Entry Manual Entr y Radiation 20.4 mGy 20.4 mGy 0 mGy Fluoro Time 2.005 minutes 2.005 minutes 0 minutes DAP (uGy-m2) 479.6 uGy-m2 479.6 uGy-m2 0 uGy-m2 Resolved Problems Problem Noted Date Diagnosed Date Resolved Date Hematuria Gross 08/31/2023 11/17/2023
--- OUTSIDE RECORDS SUMMARY | 2023-12-16 12:44 | XMS_ITS | Encounter Summary ---
Author Organization [facility] Address [address] [place] [address] Care Team Providers Care Proof Sorter Name Role Phone Elsewhere, Pcp Primary Care Provider Unavailabl e Reason for Referral * Outpatient (Routine) - Closed Specialty Diagnoses / Procedures Referred By Leyla rosenthal Referred To Contact Urology Diagnoses Retention Urinary Chronic Burke Strauss M.D. [address] [place] [address] [facility] Referral ID Status Reason Start Date Expiration Date Visits Re quested Visits Authorized [id number] Closed 12/08/2023 06/08/2025 1 1 Reason for Visit * Reason Comments Follow-up Irrigation of cathet er * Outpatient (Routine) - Closed Specialty Diagnoses / Procedures Referred By Leyla rosenthal Referred To Contact Urology Burke Strauss M.D. [address] [place] [phone] [facility] Referral ID Status Reason Start Date Expiration Date Visits Re quested Visits Authorized [id number] Closed 12/07/2023 06/07/2025 1 1 Encounter Details Date Type Department Care Team (Latest Contact Info) Description 12/08/2023 9:30 AM CDT Office Visit Department of Urology in [place], [place] [address] [place] [phone] Burke Strauss M.D. [address] [place] [phone] Retention Urinary Chronic (Primary Dx); Anemia; Anemia In Neoplastic Disease; Oracle Fusion Middleware Architect (Current) Anticoagulant Treatment Discharge Disposition: Home or Self Care Social History Tobacco Use Types Packs/Day Years Used Date Smoking Tobacco: Never Smokeless Tobacco: Never [facility] Utilities Answer Date Recorded In the past 12 months has [facility] [employer], gas, oil, or water [employer] threatened to shut off services in your [...] 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 Mcfp (Current) Anticoagulant Treatment Orders Placed This Encounter [...] CDT Procedure visit Department of Urology in [address] [address] Burke Strauss M.D. [address] [place] [phone] Discharge Disposition: Home or Self Care 01/11/2024 10:00 AM CDT Office Visit Department of Urology in [address] [address] Burke Strauss M.D. 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
--- OUTSIDE RECORDS SUMMARY | 2023-12-16 12:44 | XMS_ITS | Encounter Summary ---
Author Organization [facility] Address [address] [place] [address] Care Team Providers Care Lead Person Name Role Phone Elsewhere, Pcp Primary Care Provider Unavailabl e Reason for Visit * Reason Comments Urinary Catheter Change Pt reports leaki ng from part of three way catheter, believes he may have nicked it with a scissors. Encounter Details Date Type Department Care Team (Late st Contact Info) Description 11/30/2023 6:44 PM CDT - 11/30/2023 8:06 PM CDT Emergency [facility] [address] [place] [phone] Carmen Cherry M.D., M.P.H. [address] [place] [phone] Leakage Of Other Urinary Catheter Initial (HCC) [...] a [facility] place [facility] 11/15/2023 Sex and [...] this encounter Discharge Instructions * Discharge Instructions* Caremn Cherry M.D., M.P.H. - 11/30/2023 6:44 PM CDT Return to the emergency department if concerned your catheter is not working or concerned for worsening condition. You should continue to seek regular catheter changes as previously described by yourprimary care team. * Attachments The following attachments cannot be sent through Care Everywhere. * Indwelling Urinary Catheter Care Adult [id number] (Togolese) documented in this encounter Medications at Time [...] CDT Procedure visit Department of Urology in [address] [phone] Burke Strauss M.D. [address] [place] [phone] Discharge Disposition: Home or Self Care 01/11/2024 10:00 AM CDT Office Visit Department of Urology in [address] [phone] Burke Strauss M.D. [address] [place] [phone] Discharge Disposition: Home or Self Care documented [...] (Due) documented in this encounter Care Teams Lead Person Relationship Specialty Start Date End Date Elsewhere, Pcp PCP - General Internal Medicine 08/13/23 documented as of this encounter
--- OUTSIDE RECORDS SUMMARY | 2023-12-16 12:44 | XMS_ITS | Encounter Summary ---
Author Organization [facility] Address [address] [place] [address] Care Team Providers Care Property Management Bookkeeper Name Role Phone Elsewhere, Pcp Primary Care Provider Unavailabl e Reason for Referral * Outpatient (Routine) - Closed Specialty Diagnoses / Procedures Referred By Leyla rosenthal Referred To Contact Burke Lucero M.D. [address] [place] [phone] [facility] Referral ID Status Reason Start Date Expiration Date Visits Re quested Visits Authorized [id number] Closed 12/07/2023 06/07/2025 1 1 Reason for Visit * Reason Comments Follow-up Discuss jon cathet er * Outpatient (Routine) - Closed Specialty Diagnoses / Procedures Referred By Leyla rosenthal Referred To Contact Burke Lucero M.D. [address] [place] [phone] [facility] Referral ID Status Reason Start Date Expiration Date Visits Re quested Visits Authorized [id number] Closed 11/09/2023 05/10/2025 1 1 Encounter Details Date Type Department Care Team (Late st Contact Info) Description 12/07/2023 10:30 AM CDT Office Visit Department of Urology in [place], [place] [address] [place] [phone] Burke Strauss M.D. [address] [place] [phone] Hematuria Gross (Primary Dx); Radiation Therapy Cystitis With Hematuria; Anemia; Retention Urinary Chronic Discharge Disposition: Home or Self Care Social History Tobacco Use Types Packs/Day Years Used Date Smoking Tobacco: Never Smokeless Tobacco: Never [facility] Utilities Answer Date Recorded In the past 12 months has [facility] [employer], gas, oil, or water [employer] threatened to shut off services in your [...] living situation today? I have a [facility] place to live 11/15/2023 Sex and Gender [...] sterile technique anew 22 Fr. (Ref # [id number]) Silicone 3- way catheter placed with assistance [...] was inadvertently cut. He currently has a22 Ghanaian silicone three-way catheter. He will return tomorrow [...] Procedure visit Department of Urology in [address] [phone] Burke Strauss M.D. [address] [place] [phone] Discharge Disposition: Home or Self Care 01/11/2024 10:00 AM CDT Office Visit Department of Urology in [address] [address] Burke Strauss M.D. [address] [place] [phone] Discharge Disposition: Home or Self Care Scheduled [...] City/[facility]/ZIP Co de Phone Number [facility] [address] [place] [address], [facility] NPR[facility] [place] [address] [place] [address] * (ABNORMAL) Hemoglobin (12/07/2023 12:25 PM CDT) Hemoglobin 9.2(L) 13.2 - 16.6 g/dL 12/07/2023 12:33 PM CDT NPRG Blood (Blood, Venous) 12/07/2023 12:25 PM CDT 12/07/2023 12:27 PM CDT Burke Strauss M.D. LAB BLOOD ADD-ON Performing Organization Address City/[facility]/ZIP Co de Phone Number [facility] [address] [place] [address], [place] NPRG [place] [address] [place] [address] documented in this encounter Visit Diagnoses Diagnosis Hematuria Gross- Primary Radiation Therapy Cystitis With Hematuria Anemia Retention Urinary Chronic documented in this encounter Care Teams Property Management Bookkeeper Relationship Specialty Start Date End Date Elsewhere, Pcp PCP - General Internal Medicine 08/13/23 documented as of this encounter
--- OUTSIDE RECORDS SUMMARY | 2023-12-16 12:44 | XMS_ITS | Referral Summary ---
Author Organization [facility] Address [address] [place] [address] Care Team Providers Care Metal Polisher And Buffer Apprentice Name Role Phone Elsewhere, Pcp Primary Care Provider Unavailabl e Source Comments Patient records contain information from all sites at [facility]. For routine questions regarding patient records, call [phone] during business hours, M-F 8:00 AM - 5:00 PM Central Time. Record requests for emergency care only can be directed to [phone] at any time.[facility] Encounters Date Type Department Care Team Description 12/13/2023 9:15 AM CDT Nurse Only Department of Urology in [address] [phone] Burke Strauss M.D. Gray, Margaret A, L.P.N. Nurse Visit (Catheter Irrigation ) Discharge Disposition: Home or Self Care 12/08/2023 9:30 AM CDT Office Visit Department of Urology in [address] [phone] Burke Strauss M.D. Retention Urinary Chronic (Primary Dx); Anemia; Anemia In Neoplastic Disease; Alf (Current) Anticoagulant Treatment Discharge Disposition: Home or Self Care 12/07/2023 12:19 PM CDT - 12/07/2023 11:59 PM CDT Hospital Encounter Department of Laboratory Medicine in [address] [phone] Burke Strauss M.D. Anemia; Hematuria Gross; Retention Urinary Chronic Discharge Disposition: Home or Self Care 12/07/2023 10:30 AM CDT Office Visit Department of Urology in [address] [phone] Burke Strauss M.D. Hematuria Gross (Primary Dx); Radiation Therapy Cystitis With Hematuria; Anemia; Retention Urinary Chronic Discharge Disposition: Home or Self Care 11/30/2023 6:44 PM CDT - 11/30/2023 8:06 PM CDT Emergency [facility] [address] [place] [phone] Carmen Cherry M.D., M.P.H. Leakage Of Other Urinary Catheter Initial (HCC) (Primary Dx) Discharge Disposition: Home or Self Care 11/14/2023 11:38 PM CDT - 11/17/2023 3:55 PM CDT Hospital Encounter [facility], [facility], Fifth Floor [address] [place] [address] Eliceo Guerrier M.D., Ph.D. Sylvie Álvarez M.B.BJonahSJonah, MRashawn Gauthier M.D. Burkland, Carl B, M.D. Hematuria Gross (Primary Dx) Discharge Disposition: Home-Health Care [facility] 11/15/2023 10:40 AM CDT Ancillary Procedure Department of Wound Ostomy 11/14/2023 Documentation Department of Urology in [place] [address] [place] [address] Sowmya Aviles APRN, C.N.P., M.S.N. 11/14/2023 Intake [facility] 11/14/2023 10:44 AM CDT - 11/14/2023 10:23 PM CDT Emergency [facility] [address] [place] [phone] Sergio Raza M.D. Hematuria (Primary Dx); Malfunction Mechanical Urethral Catheter Initial (HCC) Discharge Disposition: Acute Care Hospital 11/10/2023 Clinical Communication Department of Urology in [place], [place] [address] [place] [address] Burke Strauss M.D. Oncology records request 11/09/2023 Clinical Communication Department of Urology in [place], [place] [address] [place] [phone] Burke Strauss M.D. 11/09/2023 11:00 AM CDT Office Visit Department of Urology in [place], [place] [address] [place] [phone] Burke Strauss M.D. Primary Malignant Neoplasm Of Prostate (HCC) (Primary Dx); Retention Urinary Chronic; Hematuria Gross Discharge Disposition: Home or Self Care 10/27/2023 Clinical Communication Department of Urology in [place], [place] [address] [place] [address] Burke Strauss M.D. 10/14/2023 Documentation Department of Urology in [place], [place] [address] [place] [phone] Paula Hernandez M.D. Catheter Care Plan 10/14/2023 1:00 PM CDT Procedure visit Department of Urology in [place], [place] [address] [place] [phone] Paula Hernandez M.D. Reichmann, Lynne G, R.N. Hematuria 09/27/2023 Clinical Communication Department of Urology in [place], [place] [address] [place] [phone] Paula Hernandez M.D. 09/21/2023 Clinical Communication Department of Urology in [place], [place] [address] [place] [address] Paula Hernandez M.D. 09/16/2023 Clinical Communication Department of Urology in [place], [place] [address] [place] [address] Provider, Unknown follow up questions 09/16/2023 Orders Only Department of Urology in [place], [place] [address] [place] [address] Paula Hernandez M.D. Hematuria Gross (Primary Dx) 09/15/2023 Clinical Communication [facility] [address] [place] [address] Yasmine Loco 09/09/2023 7:24 AM CDT - 09/15/2023 5:28 PM CDT Hospital Encounter [facility], [facility], Sixth Floor [address] [place] [phone] Gerri Merrill M.D., Ph.D. Sumit Holbrook M.D. [...] teral 11/15/2023 Atherosclerotic Heart Diseas e Of [place] Coronary Artery Without Angina Pectoris 11/15/2023 Overview (11/15/2023): stent placements 2017 Complication Procedure Initial 11/15/2023 Deficiency Iron 11/15/2023 Hyperlipidemia 11/15/2023 Hypertension Essential Primary 11/15/2023 Alf Current Use Of Oth er Agents Affecting Estrogen Receptors And Estrogen Levels 11/15/2023 Presence Of Other Vascular Implants And Grafts 0 11/15/2023 Other Specified Disorders Of Bladder 11/15/2023 Other Retention Of Urine 11/15/2023 PreDiabetes 11/15/2023 Presence Of Urogenital Implants 11/15/2023 Unspecified Complication Of Genitourinary Prosthetic Device Implant And Graft Initial 11/15/2023 Inferior Vena Cava Filter 11/15/2023 Primer And Powder Canning Leader (Current) Anticoagulant Treatment 09/2023 Presence Of Other [...] Never Tobacco Cessation:Counseling Given: Not Answered [facility] Utilities Answer Date Recorded In the past 12 months has [facility] [employer], oil, or water [employer] threatened to shut off services in your [...] have a [facility] place to live 11/15/2023 Sex and [...] CDT Procedure visit Department of Urology in [place], [place] [address] [place] [address] Burke Strauss M.D. [address] [place] [phone] Discharge Disposition: Home or Self Care 01/11/2024 10:00 AM CDT Office Visit Department of Urology in [place], [place] [address] [place] [address] Burke Strauss M.D. [address] [place] [address] Discharge Disposition: Home or Self Care Medical Devices Implanted Type Area Campus Police Officer Device Identifier Shelf Expiration Date Model / Serial / Lot Clp Hrzn Ti 6 Clp Lg Orng - [id number] Implanted:Qt y: 1 on 08/15/2023 by Boubacar Brock M.D. at [facility] Hardware e.g. pins/screws /rods Abdomen Teleflex [employer] [id number] 02/29/2028 [id number] / / [id number] Clp Hrzn Ti 6 Clp Lg Orng - [id number] Implanted:Qt y: 1 on 08/15/2023 by Boubacar Brock M.D. at [facility] Hardware e.g. pins/screws /rods Abdomen Teleflex [employer] [id number] 02/29/2028 [id number] / / [id number] 4 Clp Hrzn Ti 6 Clp Md Monty - [id number] Implanted:Qt y: 1 on 08/15/2023 by Boubacar Brock M.D. at [facility] Hardware e.g. pins/screws /rods Abdomen Teleflex [employer] [id number] 03/13/2028 [id number] / / [id number] 1 Clp Hrzn Ti 6 Clp Md Monty - [id number] Implanted:Qt y: 1 on 08/15/2023 by Boubacar Brock M.D. at [facility] Hardware e.g. pins/screws /rods Abdomen Teleflex [employer] [id number] 03/21/2028 [id number] / / [id number] Stnt Uret Inl 6fx24 - [id number] Implanted:Qt y: 1 on 08/15/2023 by Jakob De Paz M.D. at [facility] Ureteral Stent N/A: Ureter C.R.Bard [id number] 11/18/2027 [id number] / / [id number] Procedures Procedure Name Priority Date/Time Associated Diagnosis [...] BLOOD ADD-ON Performing Organization Address City/[facility]/ZIP Co de Phone Number [facility] [address] [place] [address], [place] [address] [place] [address] * Creatinine with Estimated GFR (12/07/2023 12:25 PM CDT) Creatinine 1.13 0.74 - 1.35 mg/dL 12/07/2023 12:49 PM CDT NPRG Estimated GFR (eGFR) 64 >=60 mL/min/BSA 12/07/2023 12:49 PM CDT NPRG Comment: Estimated GFR calculated using the 2020 CKD_EPI creatinine equation. Blood (Blood, Venous) 12/07/2023 12:25 PM CDT 12/07/2023 12:27 PM CDT Burke Strauss M.D. LAB BLOOD ADD-ON Performing Organization Address [facility]/ZIP Co de Phone Number [facility] [address] [place] [address], [place] [address] [place] [address] * (ABNORMAL) CBC without Differential (11/17/2023 7:24 [...] CDT Candelaria Rivas D.O. LAB BLOOD ADD-ON [facility] [address] [place] [address], [facility] MKTO [facility] [place] [address] * (ABNORMAL) Basic Metabolic Panel (11/17/2023 7:24 [...] D.O. LAB BLOOD ADD-ON Performing Organization Address City/[facility]/ZIP Co de Phone Number [facility] [address] [place] [address] * Glucose, POCT (11/17/2023 6:45 AM CDT) Glucose, POCT, B 107 70 - 140 mg/dL 11/17/2023 6:45 AM CDT MKTO Blood 11/17/2023 6:45 AM CDT 11/17/2023 7:03 AM CDT Generic Rals LAB POCT ORDERABLES- MANUAL Performing Organization Address [facility] Co de Phone Number [facility] [address] [place] [address] * (ABNORMAL) CBC with Differential, Blood (11/16/2023 [...] CDT Rashawn Vences M.D. LAB BLOOD ADD-ON [facility] [address] [place] [address], [facility] [place] [address] * (ABNORMAL) Comprehensive Metabolic Panel (11/16/2023 6:25 [...] CDT Rashawn Vences M.D. LAB BLOOD ADD-ON [facility] [address] [place] [address], [facility] MKTO [facility] [place] [address] [place] [address] * Transfuse Red Blood Cells : (11/15/2023 6:35 PM CDT) Madelyn Cesar D.O. BLOOD TRANSFUSION OR DERABLES * Testing Location (11/15/2023 11:09 AM CDT) Testing Location [facility] DEFAULT 11/15/2023 11:47 AM CDT [facility] Blood 11/15/2023 11:0 9 AM CDT 11/15/2023 11:47 AM CDT Sergio Raza M.D. LAB BLOOD BANK TEST ORDERABLES Performing Organization Address City/[facility]/ZIP Co de Phone Number [facility] [address] [place] [address], [facility] MKTO [facility] [place] [address] [place] [address] * Coccyx-Wound Ostomy Image Exam (11/15/2023 10:40 [...] RAD IMAGI NG PROCEDURES Performing Organization Address City/[facility]/ZIP Co de Phone Number [facility] NA * ECG 12 Lead (11/15/2023 6:47 AM CDT) Ventricular Rate ECG/Min 65 BPM MUSE HI Interval 144 ms MUSE QRSD Interval 76 ms MUSE QT Interval 430 ms MUSE QTC Interval 447 ms MUSE P [place] -7 degrees MUSE R [place] 9 degrees MUSE T Wave [place] 19 degrees MUSE 11/15/2023 6:47 AM CDT [...] to determine due to color interference Specific [place] SEE COMMENT 1.001 - 1.035 11/15/2023 8:03 AM CDT MKTO Comment:Unable to determine due to color interference Urobilinogen SEE COMMENT 0.2 - 1.0 mg/dL 11/15/2023 8:03 AM CDT MKTO Comment:Unable to determine due to color interference Urine (Urine, Midstream) 11/15/2023 6:25 AM CDT 11/15/2023 6:34 AM CDT Sylvie Wright M.D. LAB URI NE ORDERABLES Performing Organization Address City/[facility] Co de Phone Number [facility] [address] [place] [address], [place] [address] * (ABNORMAL) Microscopic Automated (11/15/2023 6:25 AM [...] ORDERABLES Performing Organization Address City/[facility] Co de Phone Number [facility] [address] [place] [address], [place] [address] [place] [address] * Bacterial Culture, Aerobic + Susceptibility, Urine (11/15/2023 6:24 AM CDT) Urine Culture Urogenital microbiota, susceptibilities not performed per laboratory criteria. 11/16/2023 11:36 AM CDT [facility] Urine (Urine, Indwelling Catheter) 11/15/2023 6:24 AM CDT 11/15/2023 9:29 AM CDT Comment:Specimen Source Site : Urine Zachery Tanner APRN C.N.P., M.S. LAB MICROBIOLOGY - GENERAL ORDERABLES [facility] [address] [place] [address], [facility] [place] [address] * CT Abdomen Pelvis without IV Contrast [...] compared with multiple priorexams. Sergio Raza M.D. IMPrieto CT PROCEDURES * Blood Bank Hold Sample (11/14/2023 11:09 AM CDT) Blood Bank Hold Sample HOLD Confirmed 11/14/2023 11:31 AM CDT NPRG Blood (Blood, Venous) 11/14/2023 11:09 AM CDT 11/14/2023 11:12 AM CDT Sergio Raza M.D. LAB BLOOD BANK TEST ORDERABLES [facility] [address] [place] [address], [facility] NPRG [facility] [address] [place] [address] * Type and Screen (with Reflex Antibody [...] [facility] [address] [place] [address], [facility] NPRG [place] [address] [place] [address] from Last 3 Months Advance Directives For more information, please contact: [phone] * Full Code (Latest Code Status on [...] Answer Comments Full Code: Discussed Care Teams Metal Polisher And Buffer Apprentice Relationship Specialty Start Date End Date Elsewhere, Pcp PCP - General Internal Medicine 08/13/23
--- OUTSIDE RECORDS SUMMARY | 2023-12-16 12:44 | XMS_ITS | Encounter Summary ---
Author Organization [facility] Address [address] [place] [address] Care Team Providers Care Management Scientist Name Role Phone Elsewhere, Pcp Primary Care Provider Unavailabl e Encounter Details Date Type Department Care Team (Late st Contact Info) Description 11/15/2023 10:40 AM CDT Ancillary Procedure Department of Wound Ostomy Social History Tobacco Use Types Packs/Day Years Used Date Smoking Tobacco: Never Smokeless Tobacco: Never [facility] Utilities Answer Date Recorded In the past 12 months has th e electric, gas, oil, or water [employer] threatened to shut off services in your [...] [facility] 11/15/2023 Sex and Gender Information Value Date Recorded Sex Assigned at Not on file Gender Identity Not on file Sexual Orientation Not on file documented as of this encounter Plan of Treatment Upcoming Encounters Date Type Department Care Team (Latest Contact Info) Description 01/11/2024 9:00 AM CDT Procedure visit Department of Urology in [place] [address] [place] [address] Burke Strauss M.D. [address] [place] [phone] Discharge Disposition: Home or Self Care 01/11/2024 10:00 AM CDT Office Visit Department of Urology in [place] [address] [place] [address] Burke Strauss M.D. [address] [place] [phone] Discharge Disposition: Home or Self Care documented [...] on filedocumented in this encounter Care Teams Management Scientist Relationship Specialty Start Date End Date Elsewhere, Pcp PCP - General Internal Medicine 08/13/23 documented as of this encounter
--- OUTSIDE RECORDS SUMMARY | 2023-12-16 12:44 | XMS_ITS | Encounter Summary ---
Author Organization [facility] Address [address] [place] [address] Care Team Providers Care President And Ceo Name Role Phone Elsewhere, Pcp Primary Care Provider Unavailabl e Reason for Referral * Outpatient (Routine) - Authorized Specialty Diagnoses / Procedures Referred By Leyla rosenthal Referred To Contact Urology Wili Sosa M.D. [address] [place] [phone] [facility] Referral ID Status Reason Start Date Expiration Date V isits Requested Visits Authorized [id number] Authorized 12/14/2023 06/14/2025 1 1 Reason for Visit * Reason Comments Nurse Visit Catheter Irrigation * Outpatient (Routine) - Closed Specialty Diagnoses / Procedures Referred By Leyla rosenthal Referred To Contact Urology Diagnoses Retention Urinary Chronic Wili Sosa M.D. [address] [place] [phone] [facility] Referral ID Status Reason Start Date Expiration Date Visits Re quested Visits Authorized [id number] Closed 12/08/2023 06/08/2025 1 1 Encounter Details Date Type Department Care Team (Late st Contact Info) Description 12/13/2023 9:15 AM CDT Nurse Only Department of Urology in [place], [place] [address] [place] [phone] Wili Sosa M.D. [address] [place] [phone] Latonia Dumont L.P.N. Nurse Visit (Catheter Irrigation ) Discharge Disposition: Home or Self Care Social History Tobacco Use Types Packs/Day Years Used Date Smoking Tobacco: Never Smokeless Tobacco: Never [facility] [employer] Answer Date Recorded In the past 12 months has e [employer], gas, oil, or water [employer] threatened to shut off services in [...] have a [facility] 11/15/2023 Sex and [...] A message will be sent to Dr. Sosa to see if patient is to see him for a follow up and patient is aware that he may be called toschedule an appointment. * Wili Sosa M.D. - 12/13/2023 9:15 AM CDT Patient is coming in on 01/11/2024 for a catheter change. I would like to see him for an office visit at that time. Please contact patient to schedule. If he has any return of significant bleeding, please have him let us know. documented in this encounter Miscellaneous Notes * Addendum Note - Wili Sosa M.D. - 12/13/2023 9:15 AM CDTAddended by: WILI SOSA on: 12/14/2023 11:30 AM Modules accepted: Orders documented in this encounter Plan of Treatment Upcoming Encounters Date Type Department Care Team (Latest Contact Info) Description 01/11/2024 9:00 AM CDT Procedure visit Department of Urology in [address] [phone] Wili Sosa M.D. [address] [place] [phone] Discharge Disposition: Home or Self Care 01/11/2024 10:00 AM CDT Office Visit Department of Urology in [address] [phone] Wili Sosa M.D. [address] [place] [phone] Discharge Disposition: Home or Self Care Scheduled Referrals Name Type Priority Associated Diagnoses Orde r Schedule Urology office visit (clinic) General Outpatient Referral Routine Expected: 01/11/2024 (Approximate), Expires: 03/14/2025 documented as of this encounter Visit Diagnoses Diagnosis Retention Urinary Chronic documented in this encounter Care Teams President And Ceo Relationship Specialty Start Date End Date Elsewhere, Pcp PCP - General Internal Medicine 08/13/23 documented as of this encounter
--- OUTSIDE RECORDS SUMMARY | 2023-12-16 12:44 | XMS_ITS | Encounter Summary ---
Author Organization [facility] Address [address] [place] [address] Care Team Providers Care Cadd Instructor Name Role Phone Elsewhere, Pcp Primary Care Provider Unavailabl e Encounter Details Date Type Department Care Team (Latest Contact Info) Description 12/07/2023 12:19 PM CDT - 12/07/2023 11:59 PM CDT Hospital Encounter Department of Laboratory Medicine in [place], [place] [address] [place] [phone] Burke Strauss M.D. [facility] [place] [phone] Anemia; Hematuria Gross; Retention Urinary Chronic Discharge Disposition: Home or Self Care Social History Tobacco Use Types Packs/Day Years Used Date Smoking Tobacco: Never Smokeless Tobacco: Never [facility] Utilities Answer Date Recorded [...] [facility] 11/15/2023 Sex and [...] CDT Procedure visit Department of Urology in [address] [address] Burke Strauss M.D. [address] [place] [address] Discharge Disposition: Home or Self Care 01/11/2024 10:00 AM CDT Office Visit Department of Urology in [place] [address] [place] [address] Burke Strauss M.D. [address] [place] [phone] Discharge Disposition: Home or Self Care documented [...] Performing Organization Address City/[facility]/ZIP Co de Phone Number [facility] [address] [place] [address], [place] [facility] [place] [address] [place] [address] * (ABNORMAL) Hemoglobin (12/07/2023 12:25 PM CDT) Hemoglobin 9.2(L) 13.2 - 16.6 g/dL 12/07/2023 12:33 PM CDT [facility] Blood (Blood, Venous) 12/07/2023 12:25 PM CDT 12/07/2023 12:27 PM CDT Burke Strauss M.D. LAB BLOOD ADD-ON [facility] [address] [place] [address], [place] [address] [place] [address] documented in this encounter Visit Diagnoses Diagnosis Anemia Hematuria Gross Retention Urinary Chronic documented in this encounter Care Teams Cadd Instructor Relationship Specialty Start Date End Date Elsewhere, Pcp PCP - General Internal Medicine 08/13/23 documented as of this encounter
--- OUTSIDE RECORDS SUMMARY | 2023-12-16 12:45 | XMS_ITS | Encounter Summary ---
Author Organization [facility] Address [address] [place] [address] Care Team Providers Care Breeder Service Technician Name Role Phone Elsewhere, Pcp Primary Care Provider Unavailabl e Reason for Referral * Outpatient (Routine) - Authorized Specialty Diagnoses / Procedures Referred By Contaraceli t Referred To Contact Urology Diagnoses Hematuria Paula Benton M.D. [address] [place] [address] [facility] Referral ID Status Reason Start Date Expiration Date V isits Requested Visits Authorized [id number] Authorized 09/15/2023 03/16/2025 1 1 Encounter Details Date Type Department Care Team (Late st Contact Info) Description 09/15/2023 Clinical Communication [facility] [address] [place] [address] Yasmine Loco Social History Tobacco Use Types [...] CDT Procedure visit Department of Urology in [place], [place] [address] [place] [phone] Burke Strauss M.D. [facility] [place] [address] Discharge Disposition: Home or Self Care 01/11/2024 10:00 AM CDT Office Visit Department of Urology in [place], [place] [address] [place] [address] Burke Strauss M.D. [address] [place] [phone] Discharge Disposition: Home or Self Care Scheduled [...] documented as of this encounter Care Teams Breeder Service Technician Relationship Specialty Start Date End Date Elsewhere, Pcp PCP - General Internal Medicine 08/13/23 documented as of this encounter
--- OUTSIDE RECORDS SUMMARY | 2023-12-16 12:45 | XMS_ITS | Encounter Summary ---
Author Organization [facility] Address [address] [place] [address] Care Team Providers Care Instrumentation Technician Name Role Phone Elsewhere, Pcp Primary Care Provider Unavailabl e Reason for Visit * Reason Comments Catheter Care Plan Encounter Details Date Type Department Care Team (Late st Contact Info) Description 10/14/2023 Documentation Department of Urology in [place], [place] [address] [place] [address] Paula Hernandez M.D. [address] [place] [address] Catheter Care Plan Social History Tobacco Use [...] Care Plan - Catheter Exchange General Information [facility]/ Patient Name: Kalen Vega Date: 1940 Health Care Provider(s) Medical Provider(s) Cesar Mccollum M.D. Institution: No address on file [place], [place] Urology Provider(s) Chief Urology residents Last seen by Paula Hernandez M.D. Institution: [facility] Treatment Summary Diagnosis Hydronephrosis; hematuria; metastatic prostate cancer; radiation cystitis Treatment Surgery []Yes [x] No Surgery Date(s) Surgical Procedure/Location/Findings Current Treatment Information/Follow-up Care Plan Frequency of Catheter Changes (i.e. every 4 weeks) every 4 weeks Catheter Information Type: Coude red rubber Size:20F Reference #: [id number] Catheter Prescription Expires NA Last seen by [...] CDT Procedure visit Department of Urology in [place] [address] [place] [address] Burke Strauss M.D. [address] [place] [phone] Discharge Disposition: Home or Self Care 01/11/2024 10:00 AM CDT Office Visit Department of Urology in [place] [address] [place] [address] Burke Strauss M.D. [address] [place] [phone] Discharge Disposition: Home or Self Care documented as of this encounter Visit Diagnoses Not on filedocumented in this encounter Care Teams Instrumentation Technician Relationship Specialty Start Date End Date Elsewhere, Pcp PCP - General Internal Medicine 08/13/23 documented as of this encounter
--- OUTSIDE RECORDS SUMMARY | 2023-12-16 12:45 | XMS_ITS | Encounter Summary ---
Author Organization [facility] Address [address] [place] [address] Care Team Providers Care Agricultural Loan Officer Name Role Phone Elsewhere, Pcp Primary Care Provider Unavailabl e Reason for Visit * Reason Comments Urinary Retention * Outpatient (Routine) - Closed Specialty Diagnoses / Procedures Referred By Contaraceli t Referred To Contact Diagnoses Hematuria Procedures URO Urethral cath change (UCC) Paula Hernandez M.D. [address] [place] [phone] [facility] Referral ID Status Reason Start Date Expiration Date Visits Re quested Visits Authorized [id number] Closed 09/15/2023 09/14/2024 1 1 Encounter Details Date Type Department Care Team (Late st Contact Info) Description 10/14/2023 1:00 PM CDT Procedure visit Department of Urology in [place], [place] [address] [place] [phone] Paula Hernandez M.D. [address] [place] [phone] Khadra Miller R.N. [address] [place] [phone] Hematuria Social History Tobacco Use Types Packs/Day [...] Procedure visit Department of Urology in [address] [phone] Burke Strauss M.D. [address] [place] [phone] Discharge Disposition: Home or Self Care 01/11/2024 10:00 AM CDT Office Visit Department of Urology in [address] [phone] Burke Strauss M.D. [address] [place] [phone] Discharge Disposition: Home or Self Care documented as of this encounter Visit Diagnoses Diagnosis Hematuria documented in this encounter Care Teams Agricultural Loan Officer Relationship Specialty Start Date End Date Elsewhere, Pcp PCP - General Internal Medicine 08/13/23 documented as of this encounter
--- OUTSIDE RECORDS SUMMARY | 2023-12-16 12:45 | XMS_ITS | Encounter Summary ---
Author Organization [facility] Address [address] [place] [address] Care Team Providers Care Foot Tender Name Role Phone Elsewhere, Pcp Primary Care Provider Unavailabl e Reason for Visit * Reason Onset Date Comments follow up questions 09/16/2023 Encounter Details Date Type Department Care Team (Latest Contact Info) Description 09/16/2023 Clinical Communication Department of Urology in [place], [place] [address] [place] [address] Provider, Unknown follow up questions Social History Tobacco Use Types Packs/Day Years Used Date Smoking Tobacco: Never Smokeless Tobacco: Never [employer] Utilities Answer Date Recorded In the past 12 months has [facility] [employer], gas, oil, or water [employer] threatened to shut off services in your [...] CDT Procedure visit Department of Urology in [place], [place] [address] [place] [address] Burke Strauss M.D. [facility] [place] [address] Discharge Disposition: Home or Self Care 01/11/2024 10:00 AM CDT Office Visit Department of Urology in [place], [place] [address] [place] [address] Burke Strauss M.D. 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
--- OUTSIDE RECORDS SUMMARY | 2023-12-16 12:45 | XMS_ITS | Encounter Summary ---
Author Organization [facility] Address [address] [place] [address] Care Team Providers Care Upper Lining Cementer Name Role Phone Elsewhere, Pcp Primary Care Provider Unavailabl e Reason for Visit * Reason Onset Date Comments Oncology records request 11/10/2023 Encounter Details Date Type Department Care Team (Latest Contact Info) Description 11/10/2023 Clinical Communication Department of Urology in [place], [place] [address] [place] [phone] Burke Strauss M.D. [address] [place] [phone] Oncology records request Social History Tobacco Use [...] your living situation today? I have a [facility] place to live 11/15/2023 Sex and Gender [...] Information was filled out and faxed to [facility], Dr. Mireya Tan clinic per Dr. Strauss. Will wait for these to come through and notify Dr. Strauss for his review. [facility] documented in this encounter Plan of Treatment Upcoming Encounters Date Type Department Care Team (Latest Contact Info) Description 01/11/2024 9:00 AM CDT Procedure visit Department of Urology in [place], [place] [address] [place] [address] Burke Strauss M.D. [address] [place] [phone] Discharge Disposition: Home or Self Care 01/11/2024 10:00 AM CDT Office Visit Department of Urology in [place] [address] [place] [address] Burke Strauss M.D. [address] [place] [phone] Discharge Disposition: Home or Self Care documented as of this encounter Visit Diagnoses Not on filedocumented in this encounter Care Teams Upper Lining Cementer Relationship Specialty Start Date End Date Elsewhere, Pcp PCP - General Internal Medicine 08/13/23 documented as of this encounter
--- OUTSIDE RECORDS SUMMARY | 2023-12-16 12:45 | XMS_ITS | Encounter Summary ---
Author Organization [facility] Address [address] [place] [address] Care Team Providers Care Senior Instrumentation Engineer Name Role Phone Elsewhere, Pcp Primary Care Provider Unavailabl e Encounter Details Date Type Department Care Team (Late st Contact Info) Description 09/27/2023 Clinical Communication Department of Urology in [place], [place] [address] [place] [address] Paula Hernandez M.D. [address] [place] [address] Social History Tobacco Use Types Packs/Day Years Used Date Smoking Tobacco: Never Smokeless Tobacco: Never [facility] Utilities Answer Date Recorded In the past 12 months has [facility] [employer], gas, oil, or water [employer] threatened to shut off services in your [...] CDT Procedure visit Department of Urology in [address] [phone] Burke Strauss M.D. [address] [place] [phone] Discharge Disposition: Home or Self Care 01/11/2024 10:00 AM CDT Office Visit Department of Urology in [place], [place] [address] [place] [address] Burke Strauss M.D. [address] [place] [phone] Discharge Disposition: Home or Self Care documented as of this encounter Visit Diagnoses Not on filedocumented in this encounter Care Teams Senior Instrumentation Engineer Relationship Specialty Start Date End Date Elsewhere, Pcp PCP - General Internal Medicine 08/13/23 documented as of this encounter
--- OUTSIDE RECORDS SUMMARY | 2023-12-16 12:45 | XMS_ITS | Encounter Summary ---
Author Organization [facility] Address [address] [place] [address] Care Team Providers Care Professor Of Visual Arts Name Role Phone Elsewhere, Pcp Primary Care Provider Unavailabl e Encounter Details Date Type Department Care Team (Late st Contact Info) Description 11/09/2023 Clinical Communication Department of Urology in [place], [place] [address] [place] [address] Burke Strauss M.D. [address] [place] [phone] Social History Tobacco Use Types Packs/Day Years Used Date Smoking Tobacco: Never Smokeless Tobacco: Never [facility] Utilities Answer Date Recorded In [...] a [facility] place to live 11/15/2023 Sex [...] change that day as it looks like [facility] has openings that day and so does [...] CDT Procedure visit Department of Urology in [address] [address] Burke Strauss M.D. [address] [place] [phone] Discharge Disposition: Home or Self Care 01/11/2024 10:00 AM CDT Office Visit Department of Urology in [address] [address] Burke Strauss M.D. [address] [place] [phone] Discharge Disposition: Home or Self Care documented as of this encounter Visit Diagnoses Not on filedocumented in this encounter Care Teams Professor Of Visual Arts Relationship Specialty Start Date End Date Elsewhere, Pcp PCP - General Internal Medicine 08/13/23 documented as of this encounter
--- OUTSIDE RECORDS SUMMARY | 2023-12-16 12:45 | XMS_ITS | Encounter Summary ---
Author Organization [facility] Address [address] [place] [address] Care Team Providers Care Addiction Specialist Name Role Phone Elsewhere, Pcp Primary Care Provider Unavailabl e Reason for Referral * Outpatient (Routine) - Closed Specialty Diagnoses / Procedures Referred By Leyla t Referred To Contact Urology Burke Strauss M.D. [address] [place] [phone] [facility] Referral ID Status Reason Start Date Expiration Date Visits Re quested Visits Authorized [id number] Closed 11/09/2023 05/10/2025 1 1 * Outpatient (Routine) - Authorized Specialty Diagnoses / Procedures Referred By Contaraceli t Referred To Contact Diagnoses Retention Urinary Chronic Procedures URO Urethral cath change (UCC) Burke Strauss M.D. [address] [place] [phone] [facility] Region Referral ID Status Reason Start Date Expiration Date V isits Requested Visits Authorized [id number] Authorized 11/09/2023 11/08/2024 15 15 Reason for Visit * Reason Comments Consult Discuss catheter thomas nges * Appointment Request (Routine) - Closed Specialty Diagnoses / Procedures Referred By Leyla rosenthal Referred To Contact Urology Referral ID Status Reason Start Date Expiration Date Visits Re quested Visits Authorized [id number] Closed 10/27/2023 10/26/2024 1 1 Encounter Details Date Type Department Care Team (Late st Contact Info) Description 11/09/2023 11:00 AM CDT Office Visit Department of Urology in [place], [place] [address] [place] [phone] Burke Strauss M.D. [address] [place] [phone] Primary Malignant Neoplasm Of Prostate (HCC) (Primary Dx); Retention Urinary Chronic; Hematuria Gross Discharge Disposition: Home or Self Care Social History Tobacco Use Types Packs/Day Years Used Date Smoking Tobacco: Never Smokeless Tobacco: Never [facility] [employer] Answer Date Recorded In the past 12 months has [facility] electric, gas, oil, or water [employer] threatened to shut off services in your [...] ILLNESS Patient presents to establish care from [facility]. He has multiple urologic issues [...] the past few days. Original plan from [facility] was to exchange his left nephrostomy tube in 3 months, due 12/14/2023. He reports getting good output from the left neph tube without hematuria. 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 He has completed 19 of 45 planned treatments and expects to finish that course in early December. Metastatic prostate cancer is being managed by [facility], Dr. Mireya Tan. Release of [...] an antegrade nephrogram through Interventional Radiology in [place] prior to nephrostomy tube removal. documented in this encounter Plan of Treatment Upcoming Encounters Date Type Department Care Team (Latest Contact Info) Description 01/11/2024 9:00 AM CDT Procedure visit Department of Urology in [address] [phone] Burke Strauss M.D. [address] [place] [phone] Discharge Disposition: Home or Self Care 01/11/2024 10:00 AM CDT Office Visit Department of Urology in [address] [address] Burke Strauss M.D. [address] [place] [phone] Discharge Disposition: Home or Self Care Scheduled [...] Gross documented in this encounter Care Teams Addiction Specialist Relationship Specialty Start Date End Date Elsewhere, Pcp PCP - General Internal Medicine 08/13/23 documented as of this encounter
--- OUTSIDE RECORDS SUMMARY | 2023-12-16 12:45 | XMS_ITS | Encounter Summary ---
Author Organization [facility] Address [address] [place] [address] Care Team Providers Care Surgical Scrub Technician Name Role Phone Elsewhere, Pcp Primary Care Provider Unavailabl e Reason for Referral * Outpatient (Routine) - Authorized Specialty Diagnoses / Procedures Referred By Contac t Referred To Contact Diagnoses Hematuria Gross Procedures DX Chest AP or PA and Lateral 2 Views Paula Hernandez M.D. [address] [place] [address] [facility] Referral ID Status Reason Start Date Expiration Date V isits Requested Visits Authorized [id number] Authorized 09/16/2023 09/15/2024 1 1 Encounter Details Date Type Department Care Team (Late st Contact Info) Description 09/16/2023 Orders Only Department of Urology in [place], [place] [address] [place] [phone] Paula Hernandez M.D. [address] [place] [address] Hematuria Gross (Primary Dx) Social History Tobacco [...] have a [facility] place to live 09/09/2023 Sex and Gender Information Value Date Recorded Sex Assigned at Not on file Gender Identity Not on file Sexual Orientation Not on file documented as of this encounter Plan of Treatment Upcoming Encounters Date Type Department Care Team (Latest Contact Info) Description 01/11/2024 9:00 AM CDT Procedure visit Department of Urology in [place], [place] [address] [place] [address] Burke Strauss M.D. [address] [place] [address] Discharge Disposition: Home or Self Care 01/11/2024 10:00 AM CDT Office Visit Department of Urology in [place], [place] [address] [place] [address] Burke Strauss M.D. [address] [place] [address] Discharge Disposition: Home or Self Care Scheduled [...] documented as of this encounter Care Teams Surgical Scrub Technician Relationship Specialty Start Date End Date Elsewhere, Pcp PCP - General Internal Medicine 08/13/23 documented as of this encounter
--- OUTSIDE RECORDS SUMMARY | 2023-12-16 12:45 | XMS_ITS | Encounter Summary ---
Author Organization [facility] Address [address] [place] [address] Care Team Providers Care Resistance Welder Name Role Phone Elsewhere, Pcp Primary Care Provider Unavailabl e Encounter Details Date Type Department Care Team (Late st Contact Info) Description 10/27/2023 Clinical Communication Department of Urology in [place], [place] [address] [place] [phone] Burke Strauss M.D. [address] [place] [address] Social History Tobacco Use Types Packs/Day Years Used Date Smoking Tobacco: Never Smokeless Tobacco: Never [facility] Utilities Answer Date Recorded In the past 12 months has e electric, gas, oil, or water [employer] threatened to shut off services in your [...] 2:15 PM CDT Patient follows urology in [place] but would like to transfer his care to [place] as it is closer to home. It looks like for Hematuria. Is this patient ok to see you? He has a catheter in and will need cath changes going forward. documented in this encounter Plan of Treatment Upcoming Encounters Date Type Department Care Team (Latest Contact Info) Description 01/11/2024 9:00 AM CDT Procedure visit Department of Urology in [place] [address] [place] [address] Burke Strauss M.D. [address] [place] [phone] Discharge Disposition: Home or Self Care 01/11/2024 10:00 AM CDT Office Visit Department of Urology in [address] [address] Burke Strauss M.D. [address] [place] [phone] Discharge Disposition: Home or Self Care documented as of this encounter Visit Diagnoses Not on filedocumented in this encounter Care Teams Resistance Welder Relationship Specialty Start Date End Date Elsewhere, Pcp PCP - General Internal Medicine 08/13/23 documented as of this encounter
--- OUTSIDE RECORDS SUMMARY | 2023-12-16 12:45 | XMS_ITS | Encounter Summary ---
Author Organization [facility] Address [address] [place] [address] Care Team Providers Care Letterer Name Role Phone Elsewhere, Pcp Primary Care Provider Unavailabl e Encounter Details Date Type Department Care Team (Late st Contact Info) Description 09/21/2023 Clinical Communication Department of Urology in [place], [place] [address] [place] [address] Paula Hernandez M.D. [address] [place] [address] Social History Tobacco Use Types Packs/Day Years Used Date Smoking Tobacco: Never Smokeless Tobacco: Never [facility] Utilities Answer Date Recorded In the past 12 months has [facility] [employer], gas, oil, or water [employer] threatened to shut off services in [...] [facility] 09/09/2023 Sex and Gender Information Value Date Recorded Sex Assigned at Not on file Gender Identity Not on file Sexual Orientation Not on file documented as of this encounter Miscellaneous Notes * Telephone Encounter - Paula Hernandez M.D. - 09/21/2023 2:37 PM CDT I called the patient's [place] physician who he saw yesterday, 09/19 in [...] CDT Procedure visit Department of Urology in [place] [address] [place] [address] Burke Strauss M.D. [facility] [place] [address] Discharge Disposition: Home or Self Care 01/11/2024 10:00 AM CDT Office Visit Department of Urology in [place] [address] [place] [address] Burke Strauss M.D. [address] [place] [phone] Discharge Disposition: Home or Self Care documented as of this encounter Visit Diagnoses Not on filedocumented in this encounter Care Teams Letterer Relationship Specialty Start Date End Date Elsewhere, Pcp PCP - General Internal Medicine 08/13/23 documented as of this encounter
--- OUTSIDE RECORDS SUMMARY | 2023-12-16 12:46 | XMS_ITS | Encounter Summary ---
Author Organization [facility] Address [address] [place] [address] Care Team Providers Care Human Intelligence Name Role Phone Elsewhere, Pcp Primary Care Provider Unavailabl e Reason for Referral * Outpatient (Routine) - Closed Specialty Diagnoses / Procedures Referred By Contac t Referred To Contact Diagnoses Hematuria Procedures URO Urethral cath change (UCC) Paula Hernandez M.D. [address] [place] [address] [facility] Referral ID Status Reason Start Date Expiration Date Visits Re quested Visits Authorized [id number] Closed 09/15/2023 09/14/2024 1 1 * Outpatient (Routine) - Authorized Specialty Diagnoses / Procedures Referred By Contac t Referred To Contact Radiology Diagnoses Hematuria Procedures IR Nephrostomy Tube Exchange Left Paula Hernandez M.D. [address] [place] [address] [facility] Referral ID Status Reason Start Date Expiration Date V isits Requested Visits Authorized [id number] Authorized 09/15/2023 09/14/2024 1 1 Reason for Visit * Reason Comments Blood in Urine Encounter Details Date Type Department Care Team (Latest Contact Info) Description 09/09/2023 7:24 AM CDT - 09/15/2023 5:28 PM CDT Hospital Encounter [facility], [facility], Sixth Floor [address] [place] [phone] Gerri Merrill M.D., Ph.D. [address] [place] [phone] Sumit Holbrook M.D. [address] [place] [phone] Hematuria (Primary Dx) Discharge Disposition: Home or Self Care Social History Tobacco Use Types Packs/Day Years Used Date Smoking Tobacco: Never Smokeless Tobacco: Never [facility] DTTities Answer Date Recorded In the past 12 months has [employer], gas, oil, or water [email or web address] threatened to shut off services in your [...] AM CDT DISCHARGE SUMMARY BRIEF OVERVIEW Hospital: [facility] Discharge Provider: Sumit Holbrook M.D. Primary Team: [facility] [[email or web address]] Urology Surgery - Chief Helga Rojas Primary [...] IP CONSULT TO UROLOGY IP CONSULT TO STATISTICAL FINANCIAL ANALYST WOUND CARE IP CONSULT TO HYPERBARIC MEDICINE IP CONSULT TO VASCULAR MEDICINE IP CONSULT TO DIETITIAN CONDITION AT DISCHARGE stable Discharge instructions were provided to the patient and caregiver(s). documented in this encounter Discharge Instructions * Discharge Instructions* Yasmine Loco - 09/09/2023 12:27 PM CDT You were discharged from the [facility] [[email or web address]] Urology Surgery - Chief A - Blue [...] reviewed. GI Function: Last BM Date: 09/11/23, Pepin Stool Chart: Type 5: Soft blobs with [...] 86.8 kg (09/09/2023) Current Weight: 84.5 kg [place] Body Weight (Calculated) : 75.3 kg BMI [...] or 5%. Estimated Needs: Total Calorie Needs: 1510-6643 calories/day Method to Estimate Energy Needs: kcal/kg [...] about patient's nutritional care please contact pager [phone] on weekdays 07:30-16:00 or [phone] on weekends/holidays ([facility]). * Clara Luu APRN, C.N.P., D.N.P. [...] 0659 09/14/23 07 - 09/15/23 0659 Shift [id number] [phone] 24 Hour Total [phone] [phone] 2816-4359 24 Hour Total INTAKE Other 30 60 [...] please contact Vascular and Interventional Radiology DEBBI ([phone]). Anticoagulation: A percutaneous nephrostomy tube is considered [...] care. Please feel free to page the [facility] Inpatient Consult Service at [phone] or the on-call resident at [phone] after 5 PM and on weekends with [...] . Neph tube clear yellow urine. I/O (2475-1505): 1.9 L, 1.1 L from the neph [...] questions or concerns. Pager during business hours: [phone] Pager after hours: [phone] * Paula Hernandez M.D. - 09/13/2023 6:05 [...] in place draining clear yellow urine I/O ([id number]): Adequate urine output 2.7 L/248 1 L [...] questions or concerns. Pager during business hours: [phone] Pager after hours: [phone] * Raya Meza Pharm.D., R.Ph., [facility] - 09/12/2023 7:44 AM CDT [...] in place draining clear yellow urine I/O (2218-2332): CBI paused for obs Labs: Hb: Hemoglobin [...] Date/Time Bacterial Culture, Aerobic + Susceptibility, Urine [[id number]] (Abnormal) (Susceptibility) Collected: 09/09/23 1128 Lab Status: [...] Susceptible Bacterial Culture, Aerobic + Susceptibility, Urine [[id number]] Collected: 09/03/23 1050 Lab Status: Final result [...] questions or concerns. Pager during business hours: [phone] Pager after hours: [phone] * Js Yang M.D. - 09/11/2023 9:18 [...] [place] [phone] during business hours orat [phone] after hours. * Portillo Crespo Pharm.D., R.Ph., [...] at 0000 Mayur Collier PharmD, LUCERO, BCPS, [facility] Pager [phone] * Js Yang M.D. - 09/10/2023 9:50 [...] Service [place] [phone] during business hours orat [phone] after hours. * Quin Harrell Pharm.D., R.Ph., [...] R.N., C.W.C.N. - 09/09/2023 1:16 PM CDT [facility] Wound RN consulted [...] None Unable to Measure N *Wound Bed Open;[place];Yellow;Fibrin/Slough Tissue Exposed None Odor None *Exudate Amount Small Drainage Description Serous;Perez Janiya-wound Assessment Intact;Fragile;[place];Purple;Maceration;White Periwound Treatment Liquid skin protectant (SurePrep) *Primary Dressing Gelling fiber/Hydrofiber (Aquacel Ag) *Primary Dressing Frequency of Change Daily & PRN *Secondary Dressing Foam (Sacral Mepilex Border) *Secondary Dressing Frequency of Change Daily & PRN Lengthy Treatment > 30 minutes > 30 minutes Ongoing management Nursing;Wound/electronic commerce specialist Partial head to toe skin assessment completed [...] PM CDT * Raya Meza Pharm.D., R.Ph., [facility] - 09/09/2023 11:17 AM CDT Images from [...] for medicationuse optimization Stephanie Meza, Pharm.D., R.Ph., [facility] Admission Medication History Note Adherence issues: No [...] follow Paula Hernandez M.D. Urology PGY-2 Pager #[phone] Please page Chief Urology at [phone] from 7 AM - 5 PM or at [phone] after hours with any questions/concerns. documented in [...] reviewed. GI Function: Last BM Date: 09/11/23, Pepin Stool Chart: Type 5: Soft blobs with [...] 86.8 kg (09/09/2023) Current Weight: 84.5 kg [place] Body Weight (Calculated) : 75.3 kg BMI [...] or 5%. Estimated Needs: Total Calorie Needs: 7160-2820 calories/day Method to Estimate Energy Needs: kcal/kg [...] about patient's nutritional care please contact pager [phone] on weekdays 07:30-16:00 or [phone] on weekends/holidays ([facility]). * Clara Luu APRN, C.N.P., D.N.P. [...] and recommendations. Please feel free to page [phone] [phone] after 5 PM and on weekends with additional questions. VIR will continue to follow * Alessandra Aguero D.O. - 09/09/2023 5:26 PM CDTAssociated Order(s): IP CONSULT TO VASCULAR MEDICINE VASCULAR MEDICINE CONSULT NOTE Requesting Physician: Gerri Merrill M.D.,* SUBJECTIVE REASON FOR CONSULT: assistance with AC management, patient on plavix and eliquis admitted with refractory hematuria requing CBI. Recommend heparin drip? thanks [facility] [phone] HISTORY OF PRESENT ILLNESS Mr. Vega is [...] for radiation proctitis SOCIAL HISTORY Lives in [place], [place] OBJECTIVE AVSS General: Lying in bed, [...] with Dr. Victoria, the chief urology resident tong setter. Please page chief Urology Service [place] [phone] [place] [phone] after hours. Paula Hernandez M.D. 09/09/23 9:10 [...] End of Shift Summary: Pt DC'd to [facility] with family. Patient educated on nephrostomy tube [...] Urology consulted after discussion with the catheter driver license technician who advised that for this patient they are required to get approval from [facility] to placing catheter. ED Course as of 09/09/23 0958 TueSeptember 09, 2023 0822 Hemoglobin(!): 8.9 Down from 9.6 one-week ago 0822 Leukocytes(!): 14.5 New leukocytosis with neutrophilia 0822 INR: 1.1 0823 Discussed with the catheter driver license technician. Bladder scan showed 125 mL. There [...] CDT Procedure visit Department of Urology in [address] [address] Burke Strauss M.D. [address] [place] [address] Discharge Disposition: Home or Self Care 01/11/2024 10:00 AM CDT Office Visit Department of Urology in [place], [place] [address] [place] [address] Burke Strauss M.D. [address] [place] [address] Discharge Disposition: Home or Self Care Pending [...] CBC without Differential (09/15/2023 3:37 AM CDT) [facility] Hemoglobin 9.8(L) 13.2 - 16.6 g/dL [...] CDT Paula Hernandez M.D. LAB BLOOD ADD-ON [facility] [address] [place] [address] * Heparin Anti-Xa Assay (09/14/2023 3:19 AM [...] Sumit Holbrook M.D. LAB BLOOD NON ADD-ON [facility] [address] [place], [place] [phone] [place] [address] [facility] [address] [place] [address] * (ABNORMAL) CBC without Differential (09/14/2023 3:19 [...] CDT Paula Hernandez [place] [address], [facility] [address] * IR Nephrostomy Tube Placement Left (09/13/2023 2:20 PM CDT) Anatomical Region Laterality Modality Genito Urinary, Vascular Int erventional RST LOS, Vascular Interventional ARZ LOS, Vascular Interventional FLA LOS Left X-Ray Angiography Impressions 09/13/2023 2:33 PM CDT Left 10 Cambodian percutaneous nephrostomy tube placement. EP Narrative 09/13/2023 [...] tract was further dilated and a 10 Cambodian nephrostomy tube was placed with loop formed [...] sedation timewas: 9 minutes. IMPRESSION: Left 10 Cambodian percutaneous nephrostomy tube placement. EP Latisha Whitehead M.D. IMG IR PROCEDURE S * Fungal Culture, Routine (09/13/2023 2:17 PM CDT) Fungal Culture, Routine No growth after 24 days of incubation. 10/08/2023 1:02 AM CDT DTL Fluid (Kidney, Left) 09/13/2023 2:17 PM CDT 09/13/2023 3:56 PM CDT Comment:Specimen Source Site : Fluid Latisha Whitehead M.D. LAB MICROBIOLOGY - GENERAL ORDERABLES [facility] [address] [place] [address], [facility] [address] [place] [address] * Bacterial Culture, Anaerobic + Susceptibility (09/13/2023 [...] [place]/ZIP Co de Phone Number [facility] [address] [place] [address], [facility] [address] [place] [address] * Gram Stain (09/13/2023 2:17 PM CDT) Gram Stain No organisms seen. White blood cells, Rare 09/13/2023 9:02 PM CDT DTL Fluid (Kidney, Left) 09/13/2023 2:17 PM CDT 09/13/2023 3:56 PM CDT Comment:Specimen Source Site : Fluid Latisha Whitehead M.D. LAB MICROBIOLOGY - GENERAL ORDERABLES Performing Organization Address City/[facility]/ZIP Co de Phone Number [facility] [address] [place] [address], [facility] [address] [place] [address] * Bacterial Culture, Aerobic + Susceptibility (09/13/2023 2:17 PM CDT) Bacterial Culture, Aerobic + Susc No growth after 5 days of incubation. 09/18/2023 12:35 PM CDT DTL Fluid (Kidney, Left) 09/13/2023 2:17 PM CDT 09/13/2023 3:56 PM CDT Comment:Specimen Source Site : Fluid Latisha Whitehead M.D. LAB MICROBIOLOGY - GENERAL ORDERABLES [facility] [address] [place] [address], [facility] [address] [place] [address] * (ABNORMAL) CBC without Differential (09/13/2023 5:57 [...] CDT Ko Victoria M.D[place] [address], [facility] [address] [place] [address] * Heparin Anti-Xa Assay (09/13/2023 5:56 AM [...] Address City/[facility] Co de Phone Number [facility] [address] [place] [address], [facility] [address] [place] [address] * APTT (Activated Partial Thromboplastin Time) (09/13/2023 5:56 AM CDT) Pathologist [facility] Activated Partial Thrombopl Time, P 35 25 - 37 sec 09/13/2023 7:14 AM CDT DTL Blood (Blood, Venous) 09/13/2023 5:56 AM CDT 09/13/2023 6:53 AM CDT Sumit Holbrook M.D. LAB BLOOD ADD-ON Performing Organization Address [facility] Co de Phone Number [facility] [address] [place] [address], [facility] [address] [place] [address] * (ABNORMAL) Basic Metabolic Panel (09/13/2023 5:56 [...] CDT Paula Hernandez M.D. LAB BLOOD ADD-ON [facility] [address] [place] [address], [facility] [address] [place] [address] * NM Kidney DMSA (09/12/2023 12:21 PM [...] reduced radiotracer uptake asdescribed. Js Yang M.D. [facility] PROCEDURES * Transfuse Red Blood Cells [...] [place]/ZIP Co de Phone Number [facility] [address] [place] [address] * (ABNORMAL) APTT (Activated Partial Thromboplastin Time) (09/12/2023 3:42 AM CDT) [facility] Activated Partial Thrombopl Time, P 49(H) 25 - 37 sec 09/12/2023 4:35 AM CDT DTL Blood (Blood, Venous) 09/12/2023 3:42 AM CDT 09/12/2023 4:00 AM CDT Gerri Merrill M.D., Ph.D. LAB BLOOD A DD-ON Performing Organization Address [facility] Co de Phone Number [facility] [address] [facility] [address] [place] [address] * (ABNORMAL) Basic Metabolic Panel (09/11/2023 8:23 [...] CDT Js Yang M.D. LAB BLOOD ADD-ON [facility] [address] [place] [address], [facility] [address] [place] [address] * (ABNORMAL) CBC without Differential (09/11/2023 8:23 [...] [place]/ZIP Co de Phone Number [facility] [address] [facility] [address] [place] [address] * (ABNORMAL) APTT (Activated Partial Thromboplastin Time) (09/10/2023 11:42 PM CDT) [facility] Activated Partial Thrombopl Time, P 47(H) 25 - 37 sec 09/11/2023 2:05 AM CDT DTL Blood (Blood, Venous) 09/10/2023 11:42 PM CDT 09/11/2023 2:05 AM CDT Gerri Merrill M.D., Ph.D. LAB BLOOD A DD-ON Performing Organization Address [facility] Co de Phone Number [facility] [address] [facility] [address] [place] [address] * US Urinary Bladder (09/10/2023 8:41 PM [...] Merrill M.D., Ph.D. LAB BLOOD A DD-ON [facility] [address] [place] [address], [place] [facility] [address] [place] [address] * (ABNORMAL) APTT (Activated Partial Thromboplastin Time) (09/10/2023 10:11 AM CDT) Pathologist [facility] Activated Partial Thrombopl Time, P 63(H) 25 - 37 sec 09/10/2023 10:57 AM CDT DTL Blood (Blood, Venous) 09/10/2023 10:11 AM CDT 09/10/2023 10:40 AM CDT Gerri Merrill M.D., Ph.D. LAB BLOOD A DD-ON Performing Organization Address [facility] Co de Phone Number [facility] [address] [place], [place] [phone] [place] [address] DTL [facility] 200 [place] [address] * (ABNORMAL) CBC without Differential (09/10/2023 3:27 [...] M.D. LAB BLOOD ADD-ON Performing Organization Address [facility]/ZIP Co de Phone Number [facility] [address] [place], [place] [address] [address] [place] [address] * (ABNORMAL) APTT (Activated Partial Thromboplastin Time) (09/10/2023 12:06 AM CDT) [facility] Activated Partial Thrombopl Time, P 57(H) 25 - 37 sec 09/10/2023 1:05 AM CDT DTL Blood (Blood, Venous) 09/10/2023 12:06 AM CDT 09/10/2023 12:33 AM CDT Gerri Merrill M.D., Ph.D. LAB BLOOD A DD-ON Performing Organization Address City/[facility]/ZIP Co de Phone Number [facility] [address] [place], [place] [phone] [place] [address] [address] [place] [address] * APTT (Activated Partial Thromboplastin Time) (09/09/2023 5:08 PM CDT) [facility] Activated Partial Thrombopl Time, P 31 25 - 37 sec 09/09/2023 5:24 PM CDT [facility] Blood (Blood, Venous) 09/09/2023 5:08 PM CDT 09/09/2023 5:12 PM CDT Ko Victoria M.D. LAB BLOOD ADD-ON Performing Organization Address City/[facility]/ZIP Co de Phone Number [facility] [address] [place], [place] [phone] [place] [address] [address] [place] [address] * (ABNORMAL) Dipstick, Urine (09/09/2023 11:28 AM CDT) [facility] Hemoglobin, QL, U Large(A) Negative 09/09/2023 [...] Jeffery Church M.D. LAB URINE ORDERA BLES [facility] [address] [place] [address], [facility] [address] [place] [address] * pH, Random, Urine (09/09/2023 11:28 AM CDT) pH, Random, U 6.3 4.5 - 8.0 09/09/2023 12:19 PM CDT DTL Urine 09/09/2023 11:2 8 AM CDT 09/09/2023 11:58 AM CDT Jeffery Church M.D. LAB URINE ORDERA BLES Performing Organization Address City/[facility]/ZIP Co de Phone Number [facility] [address] [place] [address], [facility] [address] [place] [address] * Osmolality, Urine (09/09/2023 11:28 AM CDT) Osmolality, U 380 150 - 1150 mOsm/kg 09/09/2023 12:19 PM CDT DTL Urine 09/09/2023 11:2 8 AM CDT 09/09/2023 11:58 AM CDT Jeffery Church M.D. LAB URINE ORDERA BLES [facility] [address] [place] [address], [facility] [address] [place] [address] * (ABNORMAL) Microscopic Manual (09/09/2023 11:28 AM [...] LAB URINE MARLONA SHELLY Performing Organization Address City/[facility]/ZIP Co de Phone Number [facility] [address] [place] [address], [facility] [address] [place] [address] * (ABNORMAL) Gram Stain, Urine (09/09/2023 11:28 AM CDT) Source Urine, Urine, Straight Catheter 09/09/2023 11:58 AM CDT DTL Gram Stain, U Positive(A) Negative 09/09/2023 12:16 PM CDT DTL Comment: Few Gram-negative bacilli ? Yeast Urine 09/09/2023 11:2 8 AM CDT 09/09/2023 11:58 AM CDT Jeffery Church M.D. LAB URINE MARLONA SHELLY [facility] [address] [place] [address], [facility] DTL [facility] [address] [place] [address] * (ABNORMAL) Bacterial Culture, Aerobic + Susceptibility, Urine (09/09/2023 11:28 AM CDT) [facility] Signature Urine Culture ENTEROBACTER CLOACAE COMPLEX >100,000 [...] MICROBIOLOGY - GENERAL ORDERABLES Performing Organization Address [facility] Co de Phone Number [facility] [address] [place] [address], [facility] DTL [facility] [address] [place] [address] * (ABNORMAL) Urinalysis, with Microscopic: Urine, Straight [...] 09/09/2023 1:02 PM CDT DTL Predicted Range 2480-26728 mg/24 h 09/09/2023 1:02 PM CDT DTL Comment Micro done on <2.5 mL 09/09/2023 12:27 PM CDT DTL Urine (Urine, Straight Catheter) 09/09/2023 11:28 AM CDT 09/09/2023 11:58 AM CDT Jeffery Church M.D. LAB URINE ORDERA BLES Performing Organization Address [facility]/ZIP Co de Phone Number [facility] [address] [place] [address], [facility] [address] [place] [address] * US Kidneys Bilateral with Bladder (09/09/2023 [...] Jeffery Church M.D. LAB BLOOD ADD-ON [address] [address], [place] [address] * (ABNORMAL) CBC with Differential, Blood (09/09/2023 8:04 AM CDT) Pathologist [facility] Hemoglobin 8.9(L) 13.2 - 16.6 g/dL [...] CDT Jeffery Church M.D. LAB BLOOD ADD-ON [facility] [address] [place] [address], [facility] STMA [facility] [address] [place] [address] * (ABNORMAL) Basic Metabolic Panel (09/09/2023 8:04 [...] Address City/[facility] Co de Phone Number [facility] [address] [place] [address], [facility] [place] [address] * Type and Screen (with Reflex Antibody [...] BANK T EST ORDERABLES Performing Organization Address [facility] Co de Phone Number [facility] [address] [place] [address], [facility] STRM [address] [address] documented in this encounter Visit Diagnoses Diagnosis [...] documented as of this encounter Care Teams Human Intelligence Relationship Specialty Start Date End Date Elsewhere, Pcp PCP - General Internal Medicine 08/13/23 documented as of this encounter
--- OUTSIDE RECORDS SUMMARY | 2023-12-16 12:46 | XMS_ITS | Encounter Summary ---
Author Organization [facility] Address [address] [place] [address] Care Team Providers Care Shell [employer] M[employer] Supervisor Name Role Phone Elsewhere, Pcp Primary Care Provider Unavailabl e Encounter Details Date Type Department Care Team (Latest Contact Info) Description 08/13/2023 Intake [facility] Social History Tobacco Use Types Packs/Day Years Used Date Smoking Tobacco: Never Smokeless Tobacco: Never [facility] Utilities Answer Date Recorded In the [...] CDT Procedure visit Department of Urology in [place] [address] [place] [address] Burke Strauss M.D. [facility] [place] [address] Discharge Disposition: Home or Self Care 01/11/2024 10:00 AM CDT Office Visit Department of Urology in [place] [address] [place] [address] Burke Strauss M.D. 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
--- OUTSIDE RECORDS SUMMARY | 2023-12-16 12:46 | XMS_ITS | Encounter Summary ---
Author Organization [facility] Address [address] [place] [address] Care Team Providers Care Field Operations Coordinator Name Role Phone Elsewhere, Pcp Primary Care Provider Unavailabl e Encounter Details Date Type Department Care Team (Latest Contact Info) Description 08/30/2023 Intake [facility] Social History Tobacco Use Types Packs/Day Years Used Date Smoking Tobacco: Never Smokeless Tobacco: Never [facility] Utilities Answer Date Recorded In the [...] CDT Procedure visit Department of Urology in [place] [address] [place] [address] Burke Strauss M.D. [facility] [place] [address] Discharge Disposition: Home or Self Care 01/11/2024 10:00 AM CDT Office Visit Department of Urology in [place] [address] [place] [address] Burke Strauss M.D. 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
--- OUTSIDE RECORDS SUMMARY | 2023-12-16 12:46 | XMS_ITS | Data Portability ---
Author Organization [facility], [facility] Address [address] [place] [address] Care Team Providers Care Senior Storage Engineer Name Role Phone MASOUD SAUER Primary Care Provider Assessment No assessment recorded. Plan of Treatment Reminders Order Date Submit Date Provider Last Modified By Organization Details Last Modified Time Details Appointments None recorded . Lab urinalys is, dipstick 2023 024 [email or web address] [facility], [address] [place], [address], 4 15:08:54 culture, urine 2023 024 [facility], [address], [place], [address], 4 10:11:11 Referral None recorded . Procedures None recorded . Surgeries cystosco py with ureteral stent exchange (SURG) 2021 022 [email or web address] Not available 16:50:47 cystosco py with ureteral stent exchange (SURG) 2021 022 [email or web address] Not available 15:46:30 Imaging None recorded . Medication Orders Myrbetri q 50 mg tablet,e xtended release 2021 022 [place] [id number], [address] [place], [place], [phone], 2 17:50:02 Bactrim DS 800 mg-160 mg tablet 2023 024 [email or web address] [facility] #[id number], [address] [place], [place], [phone], 16:19:28 Patient TargetsNo targets recorded. Patient InstructionsNo [...] for provi sydni revie w. Not Available [facility] [address], [place], [address], 06/25/2023 10:11:11 06/23/19 24 06/23/2023 urina lysis , dipst ick Color-Status Red Not Available [facility] [address], [place], [address], 06/23/2023 15:08:10 06/23/19 24 06/23/2023 urina lysis , dipst ick pH-Status 7.5 Not Available [facility] [address], [place], [address], 06/23/2023 15:08:10 06/23/19 24 06/23/2023 urina lysis , dipst ick Protein-Stat us >=9.0 Not Available [facility] [address], [place], [address], 06/23/2023 15:08:10 06/23/19 24 06/23/2023 urina lysis , dipst ick Nitrates-Sta tus negati ve Not Available [facility] [address], [place], [address], 06/23/2023 15:08:10 06/23/19 24 06/23/2023 urina lysis , dipst ick Blood-Status Large Not Available [facility] [address], [place], [address], 06/23/2023 15:08:10 06/23/19 24 06/23/2023 urina lysis , dipst ick Leuko-Status Negati ve Not Available [facility] [address], [place], [address], 06/23/2023 15:08:10 06/23/19 24 06/23/2023 urina lysis , dipst ick Specimen Type Voided Not Available [facility] [address], [place], [address], 06/23/2023 15:08:10 07/04/19 24 07/01/2023 CT, abdom en + pelvi s, w/o contr ast No observ ation record ed. [email or web address] [facility] [address], [place], [address], 09/01/2023 14:40:29 07/18/19 24 07/18/2023 XR, kidne y + urete r + bladd er No observ ation record ed. [email or web address] [facility] [address], [place], [address], 07/22/2023 15:56:19 Result Notes None recorded. Procedures Surgical History Date Name Laterality Status Provider Name and Address Organization Details Recorded Time Bladder Scan completed Rabia Ferrell [facility], [facility] 06/23/2023 15:08:00 Cystoscopy completed Nicola Ware MD [address] [facility] [address], [place], [address], [facility] 12/30/2021 17:11:17 Colonoscopy completed Nicola Ware MD [address] [facility] [address], [place], [address], [facility] 12/30/2021 17:11:22 Imaging Results Imaging Date Name Status LastModified by Organiz ation Details LastModified Time 07/01/2023 CT, abdomen + pelvis, w/o contrast completed [address] [facility] [address] [facility], [place], [address], 09/01/2023 14:40:29 07/18/2023 XR, kidney + ureter + bladder completed [address], [place], [address], 07/22/2023 15:56:19 Procedure Notes None recorded. Medical [...] COLONOSCO PY PREP INSTRUCTI ONS RECEIVED FROM [facility] active Not Available Not Available No t Available furosemide 20 mg tablet TAKE 1 TABLET BY MOUTH DAILY active Not Available Not Available No t Available cefuroxime axetil 500 mg tablet active Not Available Not Available No t Available polyethylen e glycol 3350 17 gram/dose oral powder MIX AND DRINK DIRECTED IN COLONOSCO PY PREP INSTRU[employer]I ONS RECEIVED FROM [facility] active Not Available Not Available No [...] Updated DateTime 12/30/2021 177.8 cm 27.4 kg/m2 94620.14 g Nicola Ware MD [address] [place] [address], [address], [facility] 12/30/2021 17:10:12 Date Recorded Body height Body mass index (BMI) Body weight Provider Name and Address Organization Details Last Updated DateTime 03/12/2022 177.8 cm 27.4 kg/m2 38986.14 g Rabia Ferrell [facility] 03/12/2022 13:55:47 Social History Question Answer Notes LastModified by Organizat ion Details LastModified Time Tobacco Smoking Status Never Smoker Nicola Ware MD [address] [place] [address],[address], [address], [facility] 12/30/2021 17:11:00 What Is [...] Diagnosis/Indication Diagnosis SNOMED-CT Code Diagnosis ICD10 Code [id number] Nicola Ware MD [facility] [address] [place] [address] 12/30/2021 16:01:19 01/01/2022 09:36:50 Increased frequency of urination 283785400 R35.0 Malignant tumor of prostate 380373598 C61 Hydronephrosis 74584886 N13.30 [id number] Aliza Landeros [facility] [address] [place] [address] 03/12/2022 13:13:50 03/15/2022 14:00:47 Increased frequency of urination 768135671 R35.0 Malignant tumor of prostate 177038392 C61 Hydronephrosis 87499330 N13.30 [id number] Nicola Ware MD [facility] [address] [place] [address] 06/23/2023 14:16:52 06/24/2023 08:40:38 Blood in urine 89985998 R31.9 Health Concerns Section Related Observation LastModified by Organization Detai ls LastModified Time None Recorded Concern Status LastModified by Organization Details LastModified Time None Recorded Advance Directives Directive None Recorded Payers Encounter Date Sequence Insurance Name Policy Number Policy Krishnan Covered Member ID Krishnan Member ID Guarantor Name 12/30/2021 1 [employer] (MEDICARE REPLACEMENT/ ADVANTAGE - PPO) [id number] José Miguel rSinivasan Braucher [id number] José Miguel Srinivasan Braucher 03/12/2022 1 [employer] (MEDICARE REPLACEMENT/ ADVANTAGE - PPO) [id number] José Miguel Srinivasan Braucher [id number] José Miguel D Braucher 06/23/2023 1 [employer] (MEDICARE REPLACEMENT/ ADVANTAGE - PPO) [id number] José Miguel Srinivasan Braucher [id number] José Miguel Vega Notes Date Note Type Note Provider Name and Address Organization Details Recorded Time 12/30/2021 text/html HPI Notes: Excer pt from hospital consultation... 81 y.o. year old male who was admitted to [facility] for gross hematuria & CT [...] of the history. Nicola Ware MD [address] [facility],[address], [place], [address], [facility] 12/30/2021 23:07:10 03/12/2022 text/html HPI Notes: Excer pt from hospital consultation... 81 y.o. year old male who was admitted to [facility] for gross hematuria & CT [...] some of the history. Nicola Ware MD [address] [place] [address],[address], [place], [address], [facility] 03/12/2022 17:21:47 06/23/2023 text/html HPI Notes: 83 Y male here after calling triage this AM with hematuria/pain with urination. Patient has stent in place, last exchange 02/08/2022. 06/23/23 visit completed by Curry Ware MD [address] [place] [address],[address], [place], [address], [facility] 06/23/2023 16:19:33
--- OUTSIDE RECORDS SUMMARY | 2023-12-16 12:46 | XMS_ITS | Encounter Summary ---
Author Organization [facility] Address [address] [place] [address] Care Team Providers Care Casting Coordinator Name Role Phone Elsewhere, Pcp Primary Care Provider Unavailabl e Encounter Details Date Type Department Care Team (Late st Contact Info) Description 09/06/2023 Orders Only Section of Hyperbaric Medicine in [place], [place] [address] [place] [address] Kira Ferraro, ARUN, C.N.P., M.S.N. [address] [place] [address] Social History Tobacco Use Types Packs/Day Years [...] Procedure visit Department of Urology in [address] [phone] Burke Strauss M.D. [address] [place] [address] Discharge Disposition: Home or Self Care 01/11/2024 10:00 AM CDT Office Visit Department of Urology in [place] [address] [place] [address] Burke Strauss M.D. 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
--- OUTSIDE RECORDS SUMMARY | 2023-12-16 12:46 | XMS_ITS | Encounter Summary ---
Author Organization [facility] Address [address] [place] [address] Care Team Providers Care Drafter Patent Name Role Phone Elsewhere, Pcp Primary Care Provider Unavailabl e Encounter Details Date Type Department Care Team (Late st Contact Info) Description 09/06/2023 Clinical Communication [facility] [address] [place] [address] Yasmine Loco Social History Tobacco Use Types Packs/Day Years Used Date Smoking Tobacco: Never Smokeless Tobacco: Never C Utilities Answer Date Recorded In the past 12 months has [facility] [employer], gas, oil, or water [employer] threatened to shut off services in your [...] your living situation today? I have a [facility] place to live 09/09/2023 Sex and Gender Information Value Date Recorded Sex Assigned at Not on file Gender Identity Not on file Sexual Orientation Not on file documented as of this encounter Plan of Treatment Upcoming Encounters Date Type Department Care Team (Latest Contact Info) Description 01/11/2024 9:00 AM CDT Procedure visit Department of Urology in [place] [address] [place] [address] Burke Strauss M.D. [facility] [place] [address] Discharge Disposition: Home or Self Care 01/11/2024 10:00 AM CDT Office Visit Department of Urology in [place] [address] [place] [address] Burke Strauss M.D. [address] [place] [address] Discharge Disposition: Home or Self Care documented as of this encounter Visit Diagnoses Diagnosis Hematuria Gross- Primary documented in this encounter Care Teams Drafter Patent Relationship Specialty Start Date End Date Elsewhere, Pcp PCP - General Internal Medicine 08/13/23 documented as of this encounter
--- OUTSIDE RECORDS SUMMARY | 2023-12-16 12:46 | XMS_ITS | Encounter Summary ---
Author Organization [facility] Address [address] [place] [address] Care Team Providers Care Pipe Fitter Gas Pipe Name Role Phone Elsewhere, Pcp Primary Care Provider Unavailabl e Encounter Details Date Type Department Care Team (Late st Contact Info) Description 09/09/2023 Documentation Department of Urology in [place], [place] [address] [place] [address] Ko Victoria M.D. [address] [place] [address] Social History Tobacco Use Types Packs/Day Years Used Date Smoking Tobacco: Never Smokeless Tobacco: Never [facility] Utilities Answer Date Recorded In the past 12 months has [facility] [employer], gas, oil, or water Location threatened to shut off services in your [...] Procedure visit Department of Urology in [address] [address] Burke Strauss M.D. [address] [place] [address] Discharge Disposition: Home or Self Care 01/11/2024 10:00 AM CDT Office Visit Department of Urology in [address] [address] Burke Strauss M.D. [address] [place] [address] Discharge Disposition: Home or Self Care documented as of this encounter Visit Diagnoses Not on filedocumented in this encounter Care Teams Pipe Fitter Gas Pipe Relationship Specialty Start Date End Date Elsewhere, Pcp PCP - General Internal Medicine 08/13/23 documented as of this encounter
--- OUTSIDE RECORDS SUMMARY | 2023-12-16 12:46 | XMS_ITS | Clinical Summary ---
Author Organization [facility] [facility] s [facility] Address [place], [place] [address] Care Team Providers Care Plate Grinder Name Role Phone Cesar Mccollum MD Primary Care Provider Nicola Ware MD Unavailable [phone] Mireya Tan MD Unavailable [phone] 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 TFG=422.87 Bladder mass 02/29/2020 04/30/2020 Hematuria 02/29/2020 03/05/2020 Acute deep vein thrombosis (DVT) 02/29/2020 11/20/2020 S/P coronary angioplasty 11/03/2016 Chest pain 09/15/2016 03/05/2020 Elevated prostate specific antigen (PSA) 10/06/2010 03/05/2020 Hip arthritis 10/06/2010 03/05/2020 Colon polyp 07/15/2010 PATRICE (acute kidney injury) Obstructive uropathy 020 Encounters Date Type Department Care Team Description 12/13/2023 Orders Only [facility] Scanner 1 scan: (1-Ord) [facility], XR SACRUM COCCYX MIN 2V, 12/13/2023 12/09/2023 Home Care Visit [address] [address] Raffy Carter, PT PT - MISSED VISIT 12/07/2023 Telephone [facility] [address] [place] [address] Cesar Mccollum MD Follow Up 12/05/2023 Home Care Visit [address] [address] Doreen Hussein, JAMEL SN - HOME VISIT 12/02/2023 10:30 AM CDT Home Care Visit [address] [address] Raffy Carter, PT PT - REASSESSMENT 12/02/2023 Plan of Care Documentation [address] [address] 11/30/2023 4:00 PM CDT Home Care Visit [address] [address] Doreen Hussein, RN SN - OASIS RECERTIFICATION 11/30/2023 10:30 AM CDT Office Visit [facility] [address] [place] [address] Cesar Mccollum MD Follow Up; Medication Management (Discuss plavix - not currently taking it) 11/30/2023 Travel 11/25/2023 11:00 AM CDT Home Care Visit [address] [address] Raffy Carter, PT PT - INITIAL ASSESSMENT 11/23/2023 8:00 AM CDT Home Care Visit [address] [address] Brittanie Prieto RN SN - HOME VISIT 11/21/2023 3:30 PM CDT Home Care Visit [address] [address] Rigo Heart, JAMEL SN - OASIS RESUMPTION OF CARE 11/18/2023 Home Care Visit [address] [address] Rufina Cosby, RN CARE COORDINATION 11/14/2023 11:30 AM CDT Home Care Visit [address] [address] Brittanie Prieto RN SN - MISSED VISIT 11/14/2023 Home Care Visit [address] [address] Raffy Carter, PT PT - OASIS TRANSFER 11/11/2023 10:30 AM CDT Home Care Visit [address] [address] Raffy Carter, PT PT - HOME VISIT 11/09/2023 9:00 AM CDT Home Care Visit [address] [address] Barbara Fuentes RN SN - HOME VISIT 11/07/2023 Home Care Visit [address] [address] Rufina Cosby, JAMEL CARE COORDINATION 11/04/2023 10:30 AM CDT Home Care Visit [address] [address] Raffy Carter, PT PT - HOME VISIT 10/31/2023 11:00 AM CDT Home Care Visit [address] [address] Doreen Hussein, JAMEL SN - HOME VISIT 10/31/2023 2:30 AM CDT Home Care Visit [address] [address] Liz Fang, HEALTH OUTREACH WORKER APPOINTMENT CLERK - MISSED VISIT 10/28/2023 10:30 AM CDT Home Care Visit [address] [address] Raffy Carter, PT PT - HOME VISIT 10/25/2023 11:30 AM CDT Home Care Visit [address] [address] Raffy Carter, PT PT - REASSESSMENT 10/24/2023 11:00 AM CDT Home Care Visit [address] [address] Doreen Hussein RN SN - HOME VISIT 10/24/2023 10:00 AM CDT Home Care Visit [address] [address] Liz Fang LICSW APPOINTMENT CLERK - HOME VISIT 10/21/2023 12:00 PM CDT Home Care Visit [address] [address] Raffy Carter, PT PT - HOME VISIT 10/20/2023 10:35 AM CDT Office Visit [address] [address] Cesar Mccollum MD Follow Up; Concerns (Discuss protocol for hyperbaric treatment at hospital) 10/20/2023 Travel 10/19/2023 9:45 AM CDT Home Care Visit [address] [address] Rigo Heart RN SN - HOME VISIT 10/18/2023 Home Care Visit [address] [address] Milli Torre RN CARE COORDINATION 10/17/2023 3:00 PM CDT Home Care Visit [address] [address] Raffy Carter, PT PT - HOME VISIT 10/17/2023 10:00 AM CDT Home Care Visit [address] [address] Annalisa, Liz L, HEALTH OUTREACH WORKER APPOINTMENT CLERK - INITIAL ASSESSMENT 10/14/2023 Home Care Visit [address] [address] Raffy Carter, PT PT - MISSED VISIT 10/12/2023 Telephone [facility] [address] [place] [address] Cesar Mccollum MD Questions 10/11/2023 7:15 AM CDT Home Care Visit [address] [address] Manav Montero, RN SN - WOUND/OSTOMY CHART CONSULT 10/10/2023 4:00 PM CDT Home Care Visit [address] [address] Deonna Oliveira, CRITICAL CARE PARAMEDIC PT - HOME VISIT 10/10/2023 10:30 AM CDT Home Care Visit [address] [address] Milli Torre, RN SN - HOME VISIT 10/08/2023 9:00 AM CDT Home Care Visit [address] [address] Justyna Hernandez, JAMEL SN - INITIAL ASSESSMENT 10/08/2023 Telephone [facility] [address] [place] [address] Cesar Mccollum MD Home Care (BP med parameters) 10/07/2023 11:30 AM CDT Home Care Visit [address] [address] Raffy Carter, PT PT - HOME VISIT 10/07/2023 Home Care Visit [address] [address] Milli Torre, RN CARE COORDINATION 10/06/2023 1:00 PM CDT Ancillary Procedure [facility] - [address] [place] [address] 10/06/2023 Travel 10/04/2023 1:00 PM CDT Office Visit [facility] [address] [place] [address] Souleymane Miller MD Follow Up (Annual Follow up /Coronary artery disease) 10/04/2023 10:15 AM CDT Home Care Visit [address] [address] Manav Rodríguez, PT PT - OASIS START OF CARE 10/04/2023 Telephone [facility] [address] [place] [address] Manav Rodríguez, PT Home Care 10/04/2023 Orders Only [facility] [address] [place] [address] Solueymane Miller MD 1 scan: (1-Ord) NFLD-EKG-10/04/23 10/04/2023 Travel 10/04/2023 Plan of Care Documentation [address] [address] 10/03/2023 Telephone [facility] [address] [place] [address] Cesar Mccollum MD Questions 10/02/2023 Home Care Visit [address] [address] Saul Lawson, RN CARE COORDINATION 10/01/2023 Home Care Visit [address] [address] Saul Lawson, RN CARE COORDINATION 09/29/2023 1:40 PM CDT Office Visit [facility] [address] [place] [address] Cesar Mccollum MD Hospital F/U ([place], urinary problem); Concerns (Bed sore - would like checked) 09/29/2023 Travel 09/23/2023 Telephone [facility] [address] [place] [address] Cesar Mccollum MD Results 09/22/2023 10:30 AM CDT Orders Only [facility] [address] [facility] [address] Lab, [place] [facility] 09/22/2023 9:50 AM CDT Nurse/Clinic Staff Only [facility] [address] [facility] [address] Dressing Change 09/22/2023 Telephone [facility] [address] [place] [address] Cesar Mccollum MD Results 09/22/2023 Travel 09/21/2023 3:20 PM CDT Nurse/Clinic Staff Only [facility] [place] [address] Procedure (UA collection from jon and neph tube) 09/21/2023 Telephone [facility] [place] [address] Letty Mera MD 09/20/2023 2:15 PM CDT Ancillary Procedure [facility] [place] [address] 09/20/2023 1:00 PM CDT Office Visit [facility] [place] [address] Letty Mera MD Hospital F/U (Admission Date: 09/09/2023 Discharge Date: 09/15/23); Wound Check (sacrum & neph tube site. ); Home Care; Concerns (Feels like catheter is falling out - pt states that it is leaking. ) 09/20/2023 Travel 09/15/2023 Transcribe Orders [facility] [address] [place], [place] [id number] Provider, Non-Excellian from Last 3 Months Immunizations Name Administration Dates Next Due COVID-19 Vaccine Spikevax (M oderna 50mcg/0.5mL) 12YO+ [id number] Formula PF 07/21/2023,03/08/2023 COVID-19 vaccine (Pfizer-Bio NTech 30mcg/0.3mL) 12YO+ BIVALENT CLAUDIA AGUIRRE 09/13/2022,01/28/2022 COVID-19 vaccine (DogeoBio NTech 30mcg/0.3mL) 12YO+ DAYRON-SUCROSE PF, MDV 08/26/2021 COVID-19 vaccine (DogeoBio NTech 30mcg/0.3mL) PF, MDV 01/13/2021,06/17/2020,2020 Influenza, Inactivated [...] Care Team (Late st Contact Info) Description 12/19/2023 4:00 AM CDT Home Care Visit [address] [address] Doreen Hussein RN [address] [place] [address] 12/23/2023 11:00 AM CDT Home Care Visit [address] [address] Raffy Carter, PT [address] [place] [address] 12/26/2023 4:00 AM CDT Home Care Visit [address] [address] Doreen Hussein RN [address] [place] [address] 01/02/2024 4:00 AM CDT Home Care Visit [address] [address] Doeren Hussein, RN [address] [place] [address] 01/09/2024 4:00 AM CDT Home Care Visit [address] [address] Doreen Hussein RN Replaced by [facility] [place] [address] 01/16/2024 4:00 AM CDT Home Care Visit [address] [address] Doreen Hussein RN [address] [place] [address] 01/23/2024 4:00 AM CDT Home Care Visit [address] [address] Doreen Hussein RN [address] [place] [address] Health Maintenance Due Date Last Done Comments Zoster (shingles) series for age 50+ (1 of 2) 1958 RSV vaccine for adults or (1 - 1-dose 60+ series) 1999 COVID-19 vaccine series (2022- season) 2023 07/21/2023, [...] Completed 4 Medical Devices Implanted Type Area Diet Clerk Device Identifier Shelf Expiration Date Model / Serial / Lot Stent Uret [id number] Contour - [id number] Implanted:Qty: 1 on 07/18/2023 by Nicola Ware MD at [facility] Right: Ureter [facility] 02/27/2026 [id number] / / [id number] Procedures Procedure Name Priority Date/Time Associated Diagnosis Comments SCAN-RADIOLOGY REPORT 12/13/2023 12:00 AM CDT HEMOGLOBIN Routine 11/30/2023 11:45 AM CDT Chronic blood loss anemia ECHO TTE COMPLETE WO CONTRAST DEBBI 10/06/2023 1:34 PM CDT Coronary artery disease, unspecified vessel or lesion type, unspecified whether angina present, unspecified whether makah or transplanted heart EKG 12 LEAD Routine 10/04/2023 2:15 PM CDT Coronary artery disease, unspecified vessel or lesion type, unspecified whether angina present, unspecified whether makah or transplanted heart ID READING EKG - NO CHARGE, COMP ONLY Routine 10/04/2023 2:14 PM CDT Coronary artery disease, unspecified vessel or lesion type, unspecified whether angina present, unspecified whether makah or transplanted heart CBC WITH AUTO DIFFERENTIAL [...] (HC) from Last 3 Months Results * SCAN-RADIOLOGY REPORT (12/13/2023 12:00 AM CDT) Anatomical Region Laterality Modality Other Scanner OTHER * (ABNORMAL) HEMOGLOBIN (11/30/2023 11:45 AM CDT) Pathologist [facility] HEMOGLOBIN 10.4(L) 13.5 - 17.5 g/dL 11/30/2023 11:50 AM CDT [facility] MCV 92 80 - 100 fL 11/30/2023 11:50 AM CDT [facility] Blood BLOOD SPECIMEN / Unknown Venipuncture / Unknown 11/30/2023 11:45 AM CDT 11/30/2023 11:45 AM CDT Cesar Mccollum MD HEMATOLOGY [facility] [address] [place] [address], * ECHO TTE COMPLETE WO CONTRAST (10/06/2023 1:34 PM CDT) Pathologist [facility] AORTIC VALVE MEAN PG 10 mmHg EJECTION FRACTION 60 % PEAK TR VELOCITY 2.8 m/s LVEDD 4.2 cm EJECTION FRACTION 65 - 70% Anatomical Region Laterality Modality Ultrasound 10/06/2023 12:5 9 PM CDT Narrative 10/06/2023 2:17 PM CDT ECHOCARDIOGRAM SHYAM SANDS ? Accession#: ?? [id number] : ?1940 83 years Study Date: ?? [...] . This study was interpreted by an [facility] accredited facility. ??Final ?? Procedure Note Manav Feliciano MD - 10/06/2023 ECHOCARDIOGRAM SHYAM SANDS : 1940 83 years Study Date: 10/06/2023 12:59:18 PM Gender: M BP: 131/72 mmHg Height: 175.26 cm BSA: 1.98 m? ? ? Weight: 81.65 kg Tech: [facility] Referring MD: SOULEYMANE MILLER Site: [facility] [facility] [...] . This study was interpreted by an [facility] accredited facility. Final Souleymane Miller MD ECHO ORD * EKG 12 LEAD (10/04/2023 2:15 PM CDT) Souleymane Miller MD EKG ORD * ID READING EKG - NO CHARGE, COMP ONLY (10/04/2023 2:14 PM CDT) Souleymane Miller MD PB - PROVIDER READ INGS * (ABNORMAL) CBC WITH AUTO DIFFERENTIAL (09/22/2023 10:39 AM CDT) Only the most recent of2 resultswithin the time period is included. WHITE BLOOD COUNT 11.0 4.5 - 11.0 thou/cu mm 09/22/2023 10:46 AM CDT [facility] RED BLOOD COUNT 2.81(L) 4.30 - 5.90 mil/cu mm 09/22/2023 10:46 AM CDT [facility] HEMOGLOBIN 8.0(L) 13.5 - 17.5 g/dL 09/22/2023 10:46 AM CDT [facility] HEMATOCRIT 25.2(L) 37.0 - 53.0 % 09/22/2023 10:46 AM CDT [facility] MCV 90 80 - 100 fL 09/22/2023 10:46 AM CDT [facility] MCH 28.5 26.0 - 34.0 pg 09/22/2023 10:46 AM CDT [facility] MCHC 31.7(L) 32.0 - 36.0 g/dL 09/22/2023 10:46 AM CDT [facility] RDW 17.5(H) 11.5 - 15.5 % 09/22/2023 10:46 AM CDT [facility] PLATELET COUNT 466(H) 140 - 440 thou/cu mm 09/22/2023 10:46 AM CDT [facility] MPV 8.9 6.5 - 11.0 fL 09/22/2023 10:46 AM CDT [facility] % NEUT 86.3 % 09/22/2023 10:46 AM CDT [facility] % LYMPH 6.6 % 09/22/2023 10:46 AM CDT [facility] % MONO 5.8 % 09/22/2023 10:46 AM CDT [facility] % EOS 1.2 % 09/22/2023 10:46 AM CDT [facility] % BASO 0.1 % 09/22/2023 10:46 AM CDT [facility] ABSOLUTE NEUTROPHILS 9.5(H) 1.7 - 7.0 thou/cu mm 09/22/2023 10:46 AM CDT [facility] ABSOLUTE LYMPHOCYTES 0.7(L) 0.9 - 2.9 thou/cu mm 09/22/2023 10:46 AM CDT [facility] ABSOLUTE MONOCYTES 0.6 <0.9 thou/cu mm 09/22/2023 10:46 AM CDT [facility] ABSOLUTE EOSINOPHILS 0.1 <0.5 thou/cu mm 09/22/2023 10:46 AM CDT [facility] ABSOLUTE BASOPHILS 0.0 <0.3 thou/cu mm 09/22/2023 10:46 AM CDT [facility] Blood BLOOD SPECIMEN / Unknown Venipuncture / Unknown 09/22/2023 10:39 AM CDT 09/22/2023 10:43 AM CDT Letty [place] [address], * (ABNORMAL) URINE CULTURE (09/21/2023 4:40 PM CDT) Only the most recent of2 resultswithin the time period is included. CULTURE RESULT(A) 09/24/2023 9:54 AM CDT [facility] TR[facility]ORATORY CULTURE >100,000 CFU/mL Shirin albicans 09/24/2023 9:54 AM CDT [facility] Urine URINE SPECIMEN / Unknown Non-Blood / Unknown 09/21/2023 4:40 PM CDT 09/21/2023 4:41 PM CDT Letty Mera MD MICROBIOLO [facility] [address] [place] [address], [place] * XR CHEST 2 VIEWS PA [...] Documents on File Type Date Recorded Patient Band Sawyer Expl anation Healthcare Directive 05/15/2021 022 * [...] Code Status Discussion: Reviewed Preferences Care Teams Plate Grinder Relationship Specialty Start Date End Date Cesar Mccollum MD [address] [place] [address] PCP - General Family Practice 03/04/20 Nicola Ware MD [address] [place] [address] Surgery - Urology 03/13/20 Mireya Tan MD [address] [place] [address] Hematology - Pathology 03/13/20 [facility] [address] [place], [place] [id number] 09/29/23
--- OUTSIDE RECORDS SUMMARY | 2023-12-16 12:46 | XMS_ITS | Encounter Summary ---
Author Organization [facility] Address [address] [place] [address] Care Team Providers Care Planning Manager Name Role Phone Elsewhere, Pcp Primary [...] has e electric, gas, oil, or water [employer] threatened to shut off services in [...] have a [facility] place to live 09/09/2023 Sex and Gender Information Value Date Recorded Sex Assigned at Not on file Gender Identity Not on file Sexual Orientation Not on file documented as of this encounter Plan of Treatment Upcoming Encounters Date Type Department Care Team (Latest Contact Info) Description 01/11/2024 9:00 AM CDT Procedure visit Department of Urology in [address] [address] Burke Strauss M.D. [address] [place] [phone] Discharge Disposition: Home or Self Care 01/11/2024 10:00 AM CDT Office Visit Department of Urology in [address] [address] Burke Strauss M.D. [address] [place] [phone] Discharge Disposition: Home or Self Care documented [...] on filedocumented in this encounter Care Teams Planning Manager Relationship Specialty Start Date End Date Elsewhere, Pcp PCP - General Internal Medicine 08/13/23 documented as of this encounter
== END 2023-12-16 12:42 | disposition home or self-care (01) ==
LOC: WOUND 12:41
PROVIDERS: PCP Family Medicine; Visit Provider Nurse Practitioner Family
DX: N30.41 Irradiation cystitis with hematuria (principal); L89.153 Pressure ulcer of sacral region, stage 3; K62.7 Radiation proctitis; D64.9 Anemia, unspecified; Z79.01 Long term (current) use of anticoagulants
CPT/HCPCS: 11042; G0277

== ENCOUNTER 2023-12-23 12:43 | Outpatient (CLI) | payer MEDICARE, OTHER, SELFPAY ==
--- OUTSIDE RECORDS SUMMARY | 2023-12-23 12:45 | XMS_ITS | Referral Summary ---
Author Organization [facility] Address [address] [place] [address] Care Team Providers Care Mold Dresser Name Role Phone Cesar Mccollum Primary Care Provider [phone] Allergies No known active allergies Medications Medication [...] on file Medical Devices Implanted Type Area Lastex Thread Winder Device Identifier Shelf Expiration Date Model / Serial / Lot Stent Ureteral Polaris Ultra [id number] - [id number] Implanted:Qty : 1 on 02/08/2022 by Nicola Ware MD at [facility] Stent Right: U[employer]ter [employer] [id number] 10/08/2024 [id number] Explanted Type Area Lastex Thread Winder Device Identifier Shelf Expiration Date Model / Serial / Lot Stent Came Out Of The Right Ureter Explanted:Qty: 1 on 02/08/2022 by Nicola Ware MD at [facility] Right: Urethra Advance Directives For more information, please contact: [phone] Documents on File Type Date Recorded Patient Sound System Installer Expl anation Advance Directives and Living Will 02/17/2022 Health Care Directiv e 05/15/2021 Healthcare Agents on File Name Relationship Healthcare Agent Relationship Communication Mindy Waterman Daughter [employer] te Health Care Agent Meera Vega Spouse Health Care Agent [phone] (Home) Favio Vega Son [employer] Altern ate Health Care Agent Tereso Vega Son [employer] Alterna te Health Care Agent Care Teams Mold Dresser Relationship Specialty Start Date End Date Cesar Mccollum [address] [place] [address] PCP - General Family Medicine 11/22/22
--- OUTSIDE RECORDS SUMMARY | 2023-12-23 12:45 | XMS_ITS | Clinical Summary ---
Author Organization [facility] Address [address] [place] [address] Care Team Providers Care Project Management Manager Name Role Phone Elsewhere, Pcp Primary Care Provider Unavailabl e Source Comments Patient records contain information from all sites at [facility]. For routine questions regarding patient records, call [phone] during business hours, M-F 8:00 AM - 5:00 PM Central Time. Record requests for emergency care only can be directed to [phone] at any time.[facility] Allergies No known active allergies [...] minutes, take the second dose and call 923 11/02/2019 Active tamsulosin (FLOMAX) 0.4 mg 24 [...] 11/15/2023 Hyperlipidemia 11/15/2023 Hypertension Essential Primary 11/15/2023 Correction Current Use Of Oth er Agents Affecting Estrogen Receptors And Estrogen Levels 11/15/2023 Presence Of Other Vascular Implants And Grafts 0 11/15/2023 Other Specified Disorders Of Bladder 11/15/2023 Other Retention Of Urine 11/15/2023 PreDiabetes 11/15/2023 Presence Of Urogenital Implants 11/15/2023 Unspecified Complication Of Genitourinary Prosthetic Device Implant And Graft Initial 11/15/2023 Inferior Vena Cava Filter 11/15/2023 Metal Ceiling Builder (Current) Anticoagulant Treatment 09/2023 Presence Of Other [...] CDT Nurse Only Department of Urology in [place], [place] [address] [place] [address] Burke Strauss M.D. Gray, Margaret A, L.P.N. Nurse Visit (Catheter Irrigation ) Discharge Disposition: Home or Self Care 12/08/2023 9:30 AM CDT Office Visit Department of Urology in [place], [place] [address] [place] [address] Burke Strauss M.D. Retention Urinary Chronic (Primary Dx); Anemia; Anemia In Neoplastic Disease; Metal Ceiling Builder (Current) Anticoagulant Treatment Discharge Disposition: Home or Self Care 12/07/2023 12:19 PM CDT - 12/07/2023 11:59 PM CDT Hospital Encounter Department of Laboratory Medicine in [address] [address] Burke Strauss M.D. Anemia; Hematuria Gross; Retention Urinary Chronic Discharge Disposition: Home or Self Care 12/07/2023 10:30 AM CDT Office Visit Department of Urology in [address] [phone] Burke Strauss M.D. Hematuria Gross (Primary Dx); Radiation Therapy Cystitis With Hematuria; Anemia; Retention Urinary Chronic Discharge Disposition: Home or Self Care 11/30/2023 6:44 PM CDT - 11/30/2023 8:06 PM CDT Emergency [place] [facility] [address] [place] [phone] Carmen Cherry M.D., M.P.H. Leakage Of Other Urinary Catheter Initial (HCC) (Primary Dx) Discharge Disposition: Home or Self Care 11/15/2023 10:40 AM CDT Ancillary Procedure Department of Wound Ostomy 11/14/2023 11:38 PM CDT - 11/17/2023 3:55 PM CDT Hospital Encounter [facility], Fifth Floor [address] [place] [address] Eliceo Guerrier M.D., Ph.D. Sylvie Álvarez M.B.BJonahS., M.D. Rashawn Vences M.D. Burkland, Carl B, M.D. Hematuria Gross (Primary Dx) Discharge Disposition: Home-Health Care [facility] [place]14/2023 10:44 AM CDT - 11/14/2023 10:23 PM CDT Emergency [place] [facility] [address] [place] [phone] Sergio Raza M.D. Hematuria (Primary Dx); Malfunction Mechanical Urethral Catheter Initial (HCC) Discharge Disposition: Acute Care Hospital 11/14/2023 Documentation Department of Urology in [address] [phone] Sowmya Aviles APRN, C.N.P., M.S.N. 11/14/2023 Intake [facility] 11/10/2023 Clinical Communication Department of Urology in [address] [address] Burke Strauss M.D. Oncology records request 11/09/2023 11:00 AM CDT Office Visit Department of Urology in [place], [place] [address] [place] [phone] Burke Strauss M.D. Primary Malignant Neoplasm Of Prostate (HCC) (Primary Dx); Retention Urinary Chronic; Hematuria Gross Discharge Disposition: Home or Self Care 11/09/2023 Clinical Communication Department of Urology in [place], [place] [address] [place] [phone] Burke Strauss M.D. 10/27/2023 Clinical Communication Department of Urology in [address] [address] Burke Strauss M.D. 10/14/2023 1:00 PM CDT Procedure visit Department of Urology in [place], [place] [address] [place] [phone] Paula Hernandez M.D. Reichmann, Lynne G, R.N. Hematuria 10/14/2023 Documentation Department of Urology in [place], [place] [address] [place] [phone] Paula Hernandez M.D. Catheter Care Plan 09/27/2023 Clinical Communication Department of Urology in [place], [place] [address] [place] [phone] Paula Hernandez M.D. from Last 3 Months [...] CDT Procedure visit Department of Urology in [address] [phone] Burke Strauss M.D. [address] [place] [phone] Discharge Disposition: Home or Self Care 01/11/2024 10:00 AM CDT Office Visit Department of Urology in [address] [address] Burke Strauss M.D. [address] [place] [phone] Discharge Disposition: Home or Self Care Health [...] Pneumococcal vaccine (65+ years) Completed 07/21/19 24 Fall Risk Screen (Annual) Completed 11/14/2023 Medical Devices Implanted Type Area Ophthalmic Photographer Device Identifier Shelf Expiration Date Model / Serial / Lot Clp Hrzn Ti 6 Clp Lg Orng - [id number] Implanted:Qt y: 1 on 08/15/2023 by Boubacar Brock M.D. at [facility] Hardware e.g. pins/screws /rods [employer]dom[employer] [id number] 02/29/2028 [id number] / / [id number] Clp Hrzn Ti 6 Clp Lg Orng - [id number] Implanted:Qt y: 1 on 08/15/2023 by Boubacar Brock M.D. at [facility] Hardware e.g. pins/screws /rods Abdom[employer] [id number] 02/29/2028 [id number] / / [id number] Clp Hrzn Ti 6 Clp Md Monty - [id number] Implanted:Qt y: 1 on 08/15/2023 by Boubacar Brock M.D. at [facility] Hardware e.g. pins/screws /rods [employer]dom[employer] [id number] 03/13/2028 [id number] / / [id number] 1 Clp Hrzn Ti 6 Clp Md Monty - [id number] Implanted:Qt y: 1 on 08/15/2023 by Boubacar Brock M.D. at [facility] Hardware e.g. pins/screws /rods [employer]dom[employer] [id number] 03/21/2028 [id number] / / [id number] 3 Stnt Uret Inl 6fx24 - [id number] Implanted:Qt y: 1 on 08/15/2023 by Jakob De Paz M.D. at [facility] Ureteral Stent N/A: Ureter [employer]ard [id number] 11/18/2027 [id number] / / [id number] Procedures Procedure Name Priority Date/Time Associated Diagnosis [...] CDT Burke Strauss M.D. LAB BLOOD ADD-ON [facility] [address] [place] [address], [place] NPRG [facility] [address] [place] [address] * Creatinine with Estimated GFR (12/07/2023 12:25 [...] Address City/[facility]/ZIP Co de Phone Number [facility] [address] [place] [address], [facility] NPR[facility] [address] [place] [address] * (ABNORMAL) CBC without Differential (11/17/2023 7:24 [...] D.O. LAB BLOOD ADD-ON Performing Organization Address City/[facility]/ZIP Co de Phone Number [facility] [address] [place] [address], [place] [facility] in [address] [address] * (ABNORMAL) Basic Metabolic Panel (11/17/2023 7:24 AM CDT) Only the most recent of2 resultswithin the time period is included. [facility] Potassium, P 4.3 3.6 - 5.2 mmol/L [...] CDT Candelaria Rivas D.O. LAB BLOOD ADD-ON [facility] [address] [place] [address], [facility] in [address] [address] * Glucose, POCT (11/17/2023 6:45 AM CDT) Glucose, POCT, B 107 70 - 140 mg/dL 11/17/2023 6:45 AM CDT [facility] Blood 11/17/2023 6:45 AM CDT 11/17/2023 7:03 AM CDT Generic Rals LAB POCT ORDERABLES- MANUAL [facility] [address] [place] [address], [facility] in [place] [address] [place] [address] * (ABNORMAL) CBC with Differential, Blood (11/16/2023 6:25 AM CDT) Only the most recent of3 resultswithin the time period is included. Pathologist [facility] Hemoglobin 9.4(L) 13.2 - 16.6 g/dL 11/16/2023 [...] CDT Rashawn Vences M.D. LAB BLOOD ADD-ON [facility] [place] [address], [facility] [place] [address] [place] [address] * (ABNORMAL) Comprehensive Metabolic Panel (11/16/2023 6:25 [...] CDT Rashawn Vences M.D. LAB BLOOD ADD-ON [facility] [address] [place] [address], [facility] [place] [address] * Transfuse Red Blood Cells : (11/15/2023 6:35 PM CDT) Madelyn Cesar D.O. BLOOD TRANSFUSION OR DERABLES * Testing Location (11/15/2023 11:09 AM CDT) Testing Location [facility] DEFAULT 11/15/2023 11:47 AM CDT [facility] Blood 11/15/2023 11:0 9 AM CDT 11/15/2023 11:47 AM CDT Sergio Raza M.D. LAB BLOOD BANK TEST ORDERABLES [facility] [address] [place] [address], [facility] [place] [address] [place] [address] * Coccyx-Wound Ostomy Image Exam (11/15/2023 10:40 [...] IMAGI NG PROCEDURES Performing Organization Address [facility] Co de Phone Number IIMS NA * ECG 12 Lead (11/15/2023 6:47 AM CDT) Ventricular Rate ECG/Min 65 BPM MUSE MD Interval 144 ms MUSE QRSD Interval 76 ms MUSE QT Interval 430 ms MUSE QTC Interval 447 ms MUSE P Doran -7 degrees MUSE R Doran 9 degrees MUSE T Wave Doran 19 degrees MUSE 11/15/2023 6:47 AM CDT [...] M.D. ECG ORD ERABLES Performing Organization Address City/[facility]/ZIP Co de Phone Number MUSE NA * [...] to determine due to color interference Specific [place] SEE COMMENT 1.001 - 1.035 11/15/2023 8:03 AM CDT MKTO Comment:Unable to determine due to color interference Urobilinogen SEE COMMENT 0.2 - 1.0 mg/dL 11/15/2023 8:03 AM CDT MKTO Comment:Unable to determine due to color interference Urine (Urine, Midstream) 11/15/2023 6:25 AM CDT 11/15/2023 6:34 AM CDT Gbemisola Olorode M.B.B.S., M.D. LAB URI NE ORDERABLES Performing Organization Address [facility] Co de Phone Number [facility] [address] [place] [address], [place] [address] * (ABNORMAL) Microscopic Automated (11/15/2023 6:25 AM [...] LAB URI NE ORDERABLES Performing Organization Address [facility] Co de Phone Number [facility] [address] [place] [address], [place] [address] * Bacterial Culture, Aerobic + Susceptibility, Urine (11/15/2023 6:24 AM CDT) Urine Culture Urogenital microbiota, susceptibilities not performed per laboratory criteria. 11/16/2023 11:36 AM CDT [facility] Urine (Urine, Indwelling Catheter) 11/15/2023 6:24 AM CDT 11/15/2023 9:29 AM CDT Comment:Specimen Source Site : Urine Zachery Tanner APRN C.N.P., M.S. LAB MICROBIOLOGY - GENERAL ORDERABLES [facility] [address] [place] [address], [facility] MK[facility] [place] [address] [place] [address] * CT Abdomen Pelvis without IV Contrast [...] Bank Hold Sample (11/14/2023 11:09 AM CDT) [facility] Blood Bank Hold Sample HOLD Confirmed 11/14/2023 11:31 AM CDT NPRG Blood (Blood, Venous) 11/14/2023 11:09 AM CDT 11/14/2023 11:12 AM CDT Sergio Raza M.D. LAB BLOOD BANK TEST ORDERABLES [facility] [address] [place] [address], [facility] [address] [place] [address] * Type and Screen (with Reflex Antibody ID) (11/14/2023 11:09 AM CDT) [facility] ABO Group O 11/15/2023 12:49 PM CDT NPRG Rh Type POS 11/15/2023 12:49 PM CDT NPRG Antibody Screen NEG 12:49 PM CDT NPRG Type & Screen Expiration 11/17/2023 23:59 11/15/2023 12:49 PM CDT NPRG ELXM Eligible Y 11/15/2023 12:49 PM CDT NPRG Blood 11/14/2023 11:0 9 AM CDT 11/15/2023 11:47 AM CDT Sergio Raza M.D. LAB BLOOD BANK TEST ORDERABLES [facility] [address] [place] [address], [place] NPRG [facility] [address] [place] [address] from Last 3 Months Advance Directives For more information, please contact: [phone] * Full Code (Latest Code Status on [...] Answer Comments Full Code: Discussed Care Teams Project Management Manager Relationship Specialty Start Date End Date Elsewhere, Pcp PCP - General Internal Medicine 08/13/23
--- OUTSIDE RECORDS SUMMARY | 2023-12-23 12:45 | XMS_ITS | Clinical Summary ---
Author Organization [facility] Address [address] [place] [address] Care Team Providers Care Incubator Operator Name Role Phone Cesar Mccollum Primary Care Provider [phone] Allergies No known active allergies Medications Medication [...] 1945 ZOSTER IMMUNIZATION (1 of 2) 1958 FALL RISK ASSESSMENT 2004 RSV VACCINE (1 - 1-dose 75+ series) 2014 MEDICARE ANNUAL WELLNESS VISIT 01/28/2023 01/28/2022, 11/20/2020 PHQ-2 (once per calendar year) 2023 COVID-19 Vaccine (2022- season) 2023 09/13/2022, 01/28/2022, 08/26/2021, Additional history [...] this topic Medical Devices Implanted Type Area Hand Router Operator Device Identifier Shelf Expiration Date Model / Serial / Lot Stent Ureteral Polaris Ultra [id number] - [id number] Implanted:Qty : 1 on 02/08/2022 by Nicola Ware MD at [facility] Stent Right: Ureter [employer] [id number] 10/08/2024 [id number] Explanted Type Area Hand Router Operator Device Identifier Shelf Expiration Date Model / Serial / Lot Stent Came Out Of The Right Ureter Explanted:Qty: 1 on 02/08/2022 by Nicola Ware MD at [facility] Right: Urethra Advance Directives For more information, please contact: [phone] Documents on File Type Date Recorded Patient Automatic Folder Seamer Expl anation Advance Directives and Living Will 02/17/2022 Health Care Directiv e 05/15/2021 Healthcare Agents on File Name Relationship Healthcare Agent Relationship Communication Mindy Waterman Daughter Co-First Alterna te Health Care Agent Meera Vega Spouse Health Care Agent [id number] (Home) Favio Vega Son Co-First Altern ate Health Care Agent Tereso Vega Son Co-First Alterna te Health Care Agent Care Teams Incubator Operator Relationship Specialty Start Date End Date Cesar Mccollum [address] [place] [address] PCP - General Family Medicine 11/22/22
--- OUTSIDE RECORDS SUMMARY | 2023-12-23 12:46 | XMS_ITS | Encounter Summary ---
Author Organization [facility] Address [address] [place] [address] Care Team Providers Care Ornamental Bronze Worker Name Role Phone Elsewhere, Pcp Primary [...] th e electric, gas, oil, or water [employer] threatened to shut off services in your [...] visit Department of Urology in [place] [address] [place] [address] Burke Strauss M.D. [address] [place] [phone] Discharge Disposition: Home or Self Care 01/11/2024 10:00 AM CDT Office Visit Department of Urology in [place] [address] [place] [address] Burke Strauss M.D. [address] [place] [phone] Discharge Disposition: Home or Self Care documented [...] on filedocumented in this encounter Care Teams Ornamental Bronze Worker Relationship Specialty Start Date End Date Elsewhere, Pcp PCP - General Internal Medicine 08/13/23 documented as of this encounter
--- OUTSIDE RECORDS SUMMARY | 2023-12-23 12:46 | XMS_ITS | Encounter Summary ---
Author Organization [facility] Address [address] [place] [address] Care Team Providers Care Impact Hammer Operator Name Role Phone Elsewhere, Pcp Primary Care Provider Unavailabl e Reason for Visit * Reason Comments Urinary Catheter Change Pt reports leaki ng from part of three way catheter, believes he may have nicked it with a scissors. Encounter Details Date Type Department Care Team (Late st Contact Info) Description 11/30/2023 6:44 PM CDT - 11/30/2023 8:06 PM CDT Emergency [facility] [address] [place] [phone] Carmen Cherry M.D., M.P.H. [address] [place] [phone] Leakage Of Other Urinary Catheter Initial (HCC) [...] [facility] place to live 11/15/2023 Sex and [...] Everywhere. * Indwelling Urinary Catheter Care Adult [id number] ([place] Citizen) documented in this encounter Medications at Time [...] Procedure visit Department of Urology in [address] [phone] Burke Strauss M.D. [address] [place] [phone] Discharge Disposition: Home or Self Care 01/11/2024 10:00 AM CDT Office Visit Department of Urology in [address] [phone] Burke Strauss M.D. [address] [place] [phone] Discharge Disposition: Home or Self Care documented [...] (Due) documented in this encounter Care Teams Impact Hammer Operator Relationship Specialty Start Date End Date Elsewhere, Pcp PCP - General Internal Medicine 08/13/23 documented as of this encounter
--- OUTSIDE RECORDS SUMMARY | 2023-12-23 12:46 | XMS_ITS ---
Author Organization [facility] Address [address] [place] [address] Care Team Providers Care Fish Seiner Name Role Phone Unavailable Unavailable Unavailable Surgery Details Not on file Complications Check Surgery Details section. Procedure Estimated Blood Loss Check Surgery Details section. Procedure Findings Check Surgery Details section. Procedure Specimens Taken Check Surgery Details section.
--- OUTSIDE RECORDS SUMMARY | 2023-12-23 12:46 | XMS_ITS | Encounter Summary ---
Author Organization [facility] Address [address] [place] [address] Care Team Providers Care Power Plant Inspector Name Role Phone Elsewhere, Pcp Primary Care Provider Unavailabl e Reason for Referral * Outpatient (Routine) - Authorized Specialty Diagnoses / Procedures Referred By Contac t Referred To Contact Diagnoses Hematuria Gabe Neal M.D. [address] [place] [address] Referral ID Status Reason Start Date Expiration Date V isits Requested Visits Authorized [id number] Authorized 11/17/2023 05/18/2025 1 1 Encounter Details Date Type Department Care Team (Late st Contact Info) Description 11/14/2023 11:38 PM CDT - 11/17/2023 3:55 PM CDT Hospital Encounter [facility] Floor [address] [place] [address] Eliceo Guerrier M.D., Ph.D. [address] [place] [address] Sylvie Álvarez M.B.B.S., M.D. [address] [place] [address] Rashawn Vences M.D. [address] [place] [address] Gabe Buckley M.D. [address] [place] [address] Smith Peter (Primary Dx) Discharge Disposition: Home-Health Care Svc Social History Tobacco Use Types Packs/Day Years Used Date Smoking Tobacco: Never Smokeless Tobacco: Never [facility] Utilities Answer Date Recorded In the past 12 months has [facility] [employer], gas, oil, or water [employer] threatened to shut off services in your [...] BRIEF OVERVIEW Discharge Hospital: Hospital: [facility] Discharge Provider: Gabe Buckley M.D. Primary Care Providers: Dr. 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 Cesar Mccollum to discuss restarting OUTPATIENT FOLLOW UP Scheduled Appointments 12/07/2023 10:15 AM [facility] MULT[facility] SPECIALTY NURSE 01 NPNC; URO [...] filter and chronic pressure wounds presented to [place] 11/14/23 gross hematuria including around his indwelling [...] discussed with Dr. Gabe Rivas DO. PGY-1 [facility] Family Medicine Residency [place] Associated attestation - Gaeb Buckley M.D. - 11/17/2023 6:37 PM CDT [...] 83 y.o. male who was admitted to [facility] 11/14/2023 due to Hematuria Gross [R31.0]. Patient was accompanied by son, Kar. This typewriter assembly and parts inspector finalized arrangements for resumption of home health care services. 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 INTERVENTION This typewriter assembly and parts inspector sent a service reconnection, including resumption of care order, to resumption of home health care services to [facility] [place] as the fax number matches the fax [...] Muscle Mass: Normal Fluid Accumulation: Absent Reduced Senior Data Warehouse Architect Strength: Not applicable This is in the [...] 83 y.o. male who was admitted to [facility] 11/14/2023 due to Hematuria Gross [R31.0]. Patient was accompanied by daughter (Mindy) and son (Kar). This typewriter assembly and parts inspector continues to assist in home health care reconnection. 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) Atherosclerotic Heart Disease Of [place] Coronary Artery Without Angina Pectoris Complication Procedure Initial Deficiency Iron Hyperlipidemia Hypertension Essential Primary Medical Scribe Current Use Of Other Agents Affecting Estrogen [...] Initial (HCC) Inferior Vena Cava Filter Medical Scribe (Current) Anticoagulant Treatment ASSESSMENT / PLAN ASSESSMENT Patient was not formally assessed by this typewriter assembly and parts inspector. INTERVENTION Patient's daughter, Mindy, provided this typewriter assembly and parts inspector with contact information for Doreen Javier, nurse manager medicare for [facility]; [phone]. This typewriter assembly and parts inspector left Doreen a voicemail, requesting a return [...] bag -monitor CMP for kidney function -continue MAINTENANCE CHIEF tamsulosin -continue MAINTENANCE CHIEF enzalutamide -urine culture, per urology # Coronary artery disease without angina pectoris, status post 6 stents # History of DVTs, status post IVC filter # Hyperlipidemia Is on both Plavix and Xarelto at home. -start Xarelto 11/16/2023 so response can be monitored while hospitalized -continue MAINTENANCE CHIEF amlodipine -continue MAINTENANCE CHIEF rosuvastatin -continue MAINTENANCE CHIEF metoprolol # Chronic Pressure Wound, Coccyx -continue wound care -offloading as much as possible Non-severe (moderate) Malnutrition (11/15/23) The patient meets the ASPEN Criteria of malnutrition based on: Energy Intake: Less than 75% of estimated energy requirement for greater than or equal to 1 month Interpretation of Weight Loss: 7.5% 3 months Body Fat: Normal Muscle Mass: Normal Fluid Accumulation: Absent Reduced Senior Data Warehouse Architect Strength: Not applicable This is in the [...] Gabe Buckley M.D. Candelaria Rivas DO. PGY-1 [facility] Family Medicine [facility] [place] Associated attestation - Gabe Buckley M.D. - 11/16/2023 6:25 PM CDT I saw and evaluated the patient, participating in the henderson portions of the service. I reviewed the resident/fellow???s note. I agree with the resident/fellow???s findings and plan. 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 - [...] recommendations -monitor CMP for kidney function -continue MAINTENANCE CHIEF tamsulosin -continue MAINTENANCE CHIEF enzalutamide -urine culture, per urology # Coronary artery disease without angina pectoris, status post 6 stents # History of DVTs, status post IVC filter # Hyperlipidemia Is on both Plavix and Xarelto at home. Urology recommendations on restarting blood thinners. -may consider restarting one or both on 11/16/2023 so response can be monitored while hospitalized -continue MAINTENANCE CHIEF amlodipine -continue MAINTENANCE CHIEF rosuvastatin -continue MAINTENANCE CHIEF metoprolol # Chronic Pressure Wound, Coccyx -continue wound care -offloading as much as possible Non-severe (moderate) Malnutrition (11/15/23) The patient meets the ASPEN Criteria of malnutrition based on: Energy Intake: Less than 75% of estimated energy requirement for greater than or equal to 1 month Interpretation of Weight Loss: 7.5% 3 months Body Fat: Normal Muscle Mass: Normal Fluid Accumulation: Absent Reduced Senior Data Warehouse Architect Strength: Not applicable This is in the [...] Rashawn Vences M.D. Candelaria Rivas DO. PGY-1 [facility] Family Medicine Res[facility] [place] Associated attestation - Rashawn Vences M.D. - [...] other issues. He showed up in the [place] [facility] room yesterday with complaints of a [...] and visits for hematuria. Patient presented at [place] yesterday because of bleeding around his [place] [...] vomiting, no abdominal pain. Patient presented at [place] where urology was contacted, manual bladder irrigation [...] anemia, hemoglobin now 8.2. Patient presented to [place] ED because of bleeding around his [place] catheter. At [place], patient had manual bladder irrigation with normal [...] CDTAssociated Order(s): Dietitian consult (hospital); Dietitian Consult ([facility]) Dietitian Consult (Hospital) Referring Provider: [...] had lost 28lbs during his stay in [place] as he was NPO for12 days then [...] Muscle Mass: Normal Fluid Accumulation: Absent Reduced Senior Data Warehouse Architect Strength: Not applicable This is in the [...] 84.1 kg BMI (Calculated): 26.6 kg/m?? % [place] Body Weight: 111 % IBW Adjusted Body [...] assessment, Discharge Planning, Other (comment) Primary Language: Uzbek Personal Lines Agent Services Used: No Sexuality/Pronoun: / Person(s) present [...] Neoplastic Disease #4 Atherosclerotic Heart Disease Of [place] Coronary Artery Without Angina Pectoris #5 Deficiency Iron #6 Hyperlipidemia #7 Hypertension Essential Primary #8 Medical Scribe Current Use Of Other Agents Affecting Estrogen Receptors And Estrogen Levels #9 Radiation Therapy Proctitis #10 Inferior Vena Cava Filter #11 Medical Scribe (Current) Anticoagulant Treatment Social History Marital Status: Family / Household: Lives with and son, Gavin. Has another son (Kar) and a daughter (Mindy). Support System: spouse and children Spirituality/Hoahaoism/Cultural Factors: None History: No Highest Level of [...] Cooperative, Oriented Communication: Talks, Understands speaking, Understands Uzbek Shopping: Appropriate to age/development Medication Management: Independent Housekeeping: Appropriate to age/development Meal Prep: Appropriate to age/development Assistive Devices: Eyeglasses, Hearing aid(s) Agency Name: [facility] Services Provided: prison once weekly for wound care, PT, social work, DarwinRN manager medicare Transportation: Support from family Baseline Services/Resources Primary care clinic and provider: ELSEWHERE, PCP Anticipated Needs Functional Status: Tasks appropriate to patient's age/development, Transportation use (drive car, use taxi/bus) Assistive Devices: Eyeglasses, Hearing aid(s) Services/Resources: Home health Agency Name: [facility] Provided: prison once weekly for wound care, PT, social work, Makenzie manager medicare Does the patient need discharge transport arranged?: No Anticipated Discharge Destination: Home-Health Care Svc OBJECTIVE Substance Abuse no symptoms Mental Health Mental Health History: Patient reports no mental health history Patient reports no current concerns Mental Health Treatment History No history of Psychiatric Treatment noted Suicide Risk and Safety Risk Assessment: C-SSRS Short Version: [place] Suicide Severity Rating Scale (Do this one [...] a wound clinic the other day. This typewriter assembly and parts inspector spoke to intake with [facility] however the only information provided is that patient is served by the [facility] location and receives long term, physical therapy, and social work and the fax number for discharge paperwork was provided. Interventions Psychosocial assessment completed. Provided supportive services. Provided education regarding the role of social work. Plan It is anticipated patient will return home with family and resume services through [facility]. Martha Gardiner 11/15/2023 * Jerri Toledo R.N., [place], [facility] - 11/15/2023 10:54 AM CDTAssociated Order(s): [...] and visits for hematuria. Patient presented at [place] yesterday because of bleeding around his [place] [...] vomiting, no abdominal pain. Patient presented at [place] where urology was contacted, manual bladder irrigation with normal saline was performed, and patient was started on CBI. Patient transferred to [place] for further management. WOUND ASSESSMENT: Wound Type: Pressure Injury IP Pressure Injury Staging: Stage 3 Wound Location: Coccyx Wound Orientation: Mid Wound Tunnel/Induration: Length 1 cm, Width 0.5 cm, and Depth 0.3 cm. Wound Bed Tissue: Red and Granulation tissue 100% Leslee-Wound Skin: Blanchable erythema, Maceration, and [place] PLAN: COCCYX: DAILY 1. Cleanse wound with [...] limit sliding down in chair. Please contact [facility] RNs if you have any question or concerns regarding wound care. Jerri Toledo R.N., LYNNE at [phone] Starla Méndez R.N., CWCN at [phone] * Zachery Tanner, ARUN, C.N.P., M.S. - [...] follows with Medical Oncology Dr. Tan in [place], [place]. Right hydronephrosis and right atrophic kidney [...] 08/30. Currently undergoing outpatient hyperbaric O2 in [facility]. Mr. Vega currently admitted to [facility] in the setting of recurrent gross hematuria. He wasseen in evaluation at [facility] Emergency Department in the setting of [...] in comparison to historical imaging. Ultimately [address] catheter was placed and patient was hand irrigated and initiated on CBI.Patient was transferred to [facility] for ongoing management. Urinalysis 11/15/2023 with [...] undergoing outpatient HBO (hyperbaric oxygenation therapy) in [facility]. Recommend to continue HBO in the [...] hematuria. Outpatient appointment scheduled on 12/07/2023 in [place] with Urology. Could consider discussion about catheter removal/formal voiding trial in the outpatient setting as to limit catheter irritation/potential infection risk contributing to hematuria. Significant pyuria on urinalysis in the setting of his gross hematuria would recommend urine culture. 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 Tan in [place], [place]. Per subjective report today undetectable PSA. [...] discussed with Dr. Valdez. Zachery Tanner APRN MS SQL SERVER DEVELOPER Associated attestation - Manav Valdez M.D. - [...] in this encounter Nursing Notes * Bety uW M.S.N., R.N. - 11/17/2023 3:55 PM CDT [...] Summary: Pt is a direct admit from [place] ED. He has chronic indwelling catheter, with prostate cancer history. He noticed urine was bloody red. While being seen in [place], 3 waycatheter was inserted and CBI started. [...] filter and chronic pressure wounds presented to [place] 11/14/23 gross hematuria including around his indwelling [...] Procedure visit Department of Urology in [address] [phone] Burke Strauss M.D. [address] [place] [phone] Discharge Disposition: Home or Self Care 01/11/2024 10:00 AM CDT Office Visit Department of Urology in [address] [address] Burke Strauss M.D. [address] [place] [phone] Discharge Disposition: Home or Self Care Pending Results Name Type Priority Associated Diagnoses Date /Time Prepare Red Blood Cells, 1 Units Blood Bank Routine 11/14/2023 11:09 AM CDT Scheduled Referrals Name Type Priority Associated Diagnoses Orde r Schedule Non-[facility] referral Outpatient Referral Routine Hematuria [...] CDT Candelaria Rivas D.O. LAB BLOOD ADD-ON [facility] [address] [place] [address], [facility] MKTO [facility] [place] [address] * (ABNORMAL) Basic Metabolic Panel (11/17/2023 7:24 [...] D.O. LAB BLOOD ADD-ON [facility] [address] [place] [address] * Glucose, POCT (11/17/2023 6:45 AM CDT) Glucose, POCT, B 107 70 - 140 mg/dL 11/17/2023 6:45 AM CDT MKTO Blood 11/17/2023 6:45 AM CDT 11/17/2023 7:03 AM CDT Generic Rals LAB POCT ORDERABLES- MANUAL Performing Organization Address City/[facility] Co de Phone Number [facility] [address] [place] [address] * (ABNORMAL) Hemoglobin (11/16/2023 4:43 PM CDT) Hemoglobin 9.2(L) 13.2 - 16.6 g/dL 11/16/2023 5:13 PM CDT MKTO Blood (Blood, Venous) 11/16/2023 4:43 PM CDT 11/16/2023 5:10 PM CDT Madelyn Cesar D.O. LAB BLOOD ADD-ON [facility] [address] [place] [address] * (ABNORMAL) Comprehensive Metabolic Panel (11/16/2023 6:25 [...] M.D. LAB BLOOD ADD-ON [facility] [address] [place] [address], [facility] MKTO [facility] in [place] [address] [place] [address] * (ABNORMAL) CBC with Differential, Blood (11/16/2023 [...] LAB BLOOD ADD-ON [facility] [address] [place] [address], [facility] MKTO [facility] in [place] [address] [place] [address] * Transfuse Red Blood Cells : (11/15/2023 6:35 PM CDT) Madelyn Cesar D.O. BLOOD TRANSFUSION OR DERABLES * Transfuse Red Blood Cells : , 1 Units (11/15/2023 6:35 PM CDT) Madelyn Cesar D.O. BLOOD TRANSFUSION OR DERABLES * (ABNORMAL) Comprehensive Metabolic Panel (11/15/2023 7:31 AM CDT) [facility] Potassium, P 4.2 3.6 - 5.2 mmol/L [...] LAB BLO OD ADD-ON [facility] [address] [place] [address], [facility] [place] [address] * (ABNORMAL) CBC with Differential, Blood (11/15/2023 [...] LAB BLO OD ADD-ON [facility] [address] [place] [address], [facility] MKTO [facility] [place] [address] * ECG 12 Lead (11/15/2023 6:47 AM CDT) Ventricular Rate ECG/Min 65 BPM MUSE ND Interval 144 ms MUSE QRSD Interval 76 ms MUSE QT Interval 430 ms MUSE QTC Interval 447 ms MUSE P [place] -7 degrees MUSE R [place] 9 degrees MUSE T Wave [place] 19 degrees MUSE 11/15/2023 6:47 AM CDT [...] M.D. ECG ORD ERABLES Performing Organization Address City/[facility]/ZIP Co de Phone Number MUSE NA [...] LAB URI NE ORDERABLES Performing Organization Address [facility] Co de Phone Number [facility] [address] [place] [phone], [facility] MKTO [facility] in [place] [address] [place] [address] * (ABNORMAL) Urinalysis with Microscopic if Indicated [...] to determine due to color interference Specific [place] SEE COMMENT 1.001 - 1.035 11/15/2023 8:03 AM CDT MKTO Comment:Unable to determine due to color interference Urobilinogen SEE COMMENT 0.2 - 1.0 mg/dL 11/15/2023 8:03 AM CDT MKTO Comment:Unable to determine due to color interference Urine (Urine, Midstream) 11/15/2023 6:25 AM CDT 11/15/2023 6:34 AM CDT Sylvie Wright M.D. LAB URI NE ORDERABLES Performing Organization Address [facility] Co de Phone Number [facility] [address] [place] [address] * Bacterial Culture, Aerobic + Susceptibility, Urine (11/15/2023 6:24 AM CDT) Urine Culture Urogenital microbiota, susceptibilities not performed per laboratory criteria. 11/16/2023 11:36 AM CDT [facility] Urine (Urine, Indwelling Catheter) 11/15/2023 6:24 AM CDT 11/15/2023 9:29 AM CDT Comment:Specimen Source Site : Urine Zachery Tanner APRN, C.N.P., M.S. LAB MICROBIOLOGY - GENERAL ORDERABLES Performing Organization Address [facility] Co de Phone Number [facility] [address] [place] [address] documented in this encounter Visit Diagnoses Diagnosis Hematuria Gross- Primary Hematuria Gross Primary Malignant Neoplasm Of Prostate (HCC) Anemia In Neoplastic Disease Medical Scribe Current Use Of Other Agents Affecting Estrogen Receptors And Estrogen Levels Hypertension Essential Primary Hyperlipidemia Deficiency Iron Radiation Therapy Proctitis Atherosclerotic Heart Disease Of [place] Coronary Artery Without Angina Pectoris Inferior Vena Cava Filter Medical Scribe (Current) Anticoagulant Treatment documented in this encounter [...] if needed. 0102 (Given - Provider: Nuvia Ocasoi R.N.)2010 (Given - Provider: Mariajose Berry RJonahN.) [...] R.N.) documented in this encounter Care Teams Power Plant Inspector Relationship Specialty Start Date End Date Elsewhere, Pcp PCP - General Internal Medicine 08/13/23 documented as of this encounter
--- OUTSIDE RECORDS SUMMARY | 2023-12-23 12:46 | XMS_ITS | Encounter Summary ---
Author Organization [facility] Address [address] [place] [address] Care Team Providers Care System Development Engineer Name Role Phone Elsewhere, Pcp Primary [...] have a [facility] to live 11/15/2023 Sex and Gender Information Value Date Recorded Sex Assigned at Not on file Gender Identity Not on file Sexual Orientation Not on file documented as of this encounter Plan of Treatment Upcoming Encounters Date Type Department Care Team (Latest Contact Info) Description 01/11/2024 9:00 AM CDT Procedure visit Department of Urology in [place] [address] [place] [address] Burke Strauss M.D. [address] [place] [phone] Discharge Disposition: Home or Self Care 01/11/2024 10:00 AM CDT Office Visit Department of Urology in [place] [address] [place] [address] Burke Strauss M.D. [address] [place] [phone] Discharge Disposition: Home or Self Care documented as of this encounter Visit Diagnoses Not on filedocumented in this encounter Care Teams System Development Engineer Relationship Specialty Start Date End Date Elsewhere, Pcp PCP - General Internal Medicine 08/13/23 documented as of this encounter
--- OUTSIDE RECORDS SUMMARY | 2023-12-23 12:46 | XMS_ITS | Encounter Summary ---
Author Organization [facility] Address [address] [place] [address] Care Team Providers Care Metal Tank Builder Name Role Phone Elsewhere, Pcp Primary Care Provider Unavailabl e Encounter Details Date Type Department Care Team (Late st Contact Info) Description 11/14/2023 Documentation Department of Urology in [place], [place] [address] [place] [address] Sowmya Aviles, ARUN, C.N.P., M.S.N. [address] [place] [phone] Social History Tobacco Use Types Packs/Day Years [...] have a [facility] place to live 11/15/2023 Sex and Gender Information Value Date Recorded Sex Assigned at Not on file Gender Identity Not on file Sexual Orientation Not on file documented as of this encounter Progress Notes * Sowmya Aviles, ARUN, C.N.P., M.S.N. - 11/14/2023 3:31 PM CDT Contacted via [facility] regarding this patient. Not personally seen or evaluated as patient is in the [facility] Emergency Department. Kalen Vega is a 83 y.o. male with medical comorbidities of acute DVT on Plavix, coronary artery disease status post stent, degenerative joint disease, hyperlipidemia, lymphedema, prediabetes. 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 Tan in [place], [place]. Right hydronephrosis and right atrophic kidney [...] was readmitted to hospital. He presented to [facility] Emergency Department today for evaluation of hematuria and no drainage into urinary catheter. He reports leakage around the catheter of urine and blood clots. A 22 Syriac three-way catheter was placed, patient was hand [...] Procedure visit Department of Urology in [place], [place] [address] [place] [address] Burke Strauss M.D. [facility] [place] [address] Discharge Disposition: Home or Self Care 01/11/2024 10:00 AM CDT Office Visit Department of Urology in [place] [address] [place] [address] Burke Strauss M.D. [address] [place] [phone] Discharge Disposition: Home or Self Care documented as of this encounter Visit Diagnoses Not on filedocumented in this encounter Care Teams Metal Tank Builder Relationship Specialty Start Date End Date Elsewhere, Pcp PCP - General Internal Medicine 08/13/23 documented as of this encounter
--- OUTSIDE RECORDS SUMMARY | 2023-12-23 12:46 | XMS_ITS | Encounter Summary ---
Author Organization [facility] Address [address] [place] [address] Care Team Providers Care Cementer Name Role Phone Elsewhere, Pcp Primary Care Provider Unavailabl e Reason for Referral * Outpatient (Routine) - Closed Specialty Diagnoses / Procedures Referred By Leyla rosenthal Referred To Contact Urology Diagnoses Retention Urinary Chronic Burke Strauss M.D. [address] [place] [address] [facility] Referral ID Status Reason Start Date Expiration Date Visits Re quested Visits Authorized [id number] Closed 12/08/2023 06/08/2025 1 1 Reason for Visit * Reason Comments Follow-up Irrigation of cathet er * Outpatient (Routine) - Closed Specialty Diagnoses / Procedures Referred By Leyla rosenthal Referred To Contact Urology Burke Strauss M.D. [address] [place] [phone] [facility] Referral ID Status Reason Start Date Expiration Date Visits Re quested Visits Authorized [id number] Closed 12/07/2023 06/07/2025 1 1 Encounter Details Date Type Department Care Team (Latest Contact Info) Description 12/08/2023 9:30 AM CDT Office Visit Department of Urology in [place], [place] [address] [place] [phone] Burke Strauss M.D. [address] [place] [phone] Retention Urinary Chronic (Primary Dx); Anemia; Anemia In Neoplastic Disease; [facility] (Current) Anticoagulant Treatment Discharge Disposition: Home or Self Care Social History Tobacco Use Types Packs/Day Years Used Date Smoking Tobacco: Never Smokeless Tobacco: Never [facility] Utilities Answer Date Recorded In the past 12 months has [facility] [employer], gas, oil, or water [employer] threatened to shut off services in your [...] 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 Sales Enablement Specialist (Current) Anticoagulant Treatment Orders Placed This Encounter [...] Procedure visit Department of Urology in [address] [phone] Burke Strauss M.D. [address] [place] [phone] Discharge Disposition: Home or Self Care 01/11/2024 10:00 AM CDT Office Visit Department of Urology in [address] [address] Burke Strauss M.D. [address] [place] [phone] Discharge Disposition: Home or Self Care Scheduled Referrals Name Type Priority Associated Diagnoses Orde r Schedule Urology nurse visit (clinic) Outpatient Referral Routine Retention Urinary Chronic Expected: 12/13/2023, Expires: 03/09/2025 documented as of this encounter Visit Diagnoses Diagnosis Retention Urinary Chronic- Primary Anemia Anemia In Neoplastic Disease [facility] (Current) Anticoagulant Treatment documented in this encounter Care Teams Cementer Relationship Specialty Start Date End Date Elsewhere, Pcp PCP - General Internal Medicine 08/13/23 documented as of this encounter
--- OUTSIDE RECORDS SUMMARY | 2023-12-23 12:46 | XMS_ITS | Encounter Summary ---
Author Organization [facility] Address [address] [place] [address] Care Team Providers Care Manufacturing Test Technician Name Role Phone Elsewhere, Pcp Primary Care Provider Unavailabl e Encounter Details Date Type Department Care Team (Latest Contact Info) Description 12/07/2023 12:19 PM CDT - 12/07/2023 11:59 PM CDT Hospital Encounter Department of Laboratory Medicine in [place], [place] [address] [place] [phone] Burke Strauss M.D. [facility] [place] [phone] Anemia; Hematuria Gross; Retention Urinary Chronic Discharge Disposition: Home or Self Care Social History Tobacco Use Types Packs/Day Years Used Date Smoking Tobacco: Never Smokeless Tobacco: Never [facility] Utilities Answer Date Recorded In the [...] a [facility] place to live 11/15/2023 Sex and [...] CDT Procedure visit Department of Urology in [address] [phone] Burke Strauss M.D. [address] [place] [address] Discharge Disposition: Home or Self Care 01/11/2024 10:00 AM CDT Office Visit Department of Urology in [place] [address] [place] [address] Burke Strauss M.D. [address] [place] [phone] Discharge Disposition: Home or Self Care documented [...] ADD-ON Performing Organization Address City/[facility]/ZIP Co de Phone Number [facility] [place] 2[facility] [address] [place] [address], [place] NPRG [place] [address] [place] [address] * (ABNORMAL) Hemoglobin (12/07/2023 12:25 PM CDT) Hemoglobin 9.2(L) 13.2 - 16.6 g/dL 12/07/2023 12:33 PM CDT NPRG Blood (Blood, Venous) 12/07/2023 12:25 PM CDT 12/07/2023 12:27 PM CDT Burke Strauss M.D. LAB BLOOD ADD-ON [facility] [place] [address] [place] [address], [place] [address] [place] [address] documented in this encounter Visit Diagnoses Diagnosis Anemia Hematuria Gross Retention Urinary Chronic documented in this encounter Care Teams Manufacturing Test Technician Relationship Specialty Start Date End Date Elsewhere, Pcp PCP - General Internal Medicine 08/13/23 documented as of this encounter
--- OUTSIDE RECORDS SUMMARY | 2023-12-23 12:46 | XMS_ITS | Encounter Summary ---
Author Organization [facility] Address [address] [place] [address] Care Team Providers Care Travel Registered Nurse Oncology Name Role Phone Elsewhere, Pcp Primary Care Provider Unavailabl e Reason for Referral * Outpatient (Routine) - Closed Specialty Diagnoses / Procedures Referred By Leyla rosenthal Referred To Contact Burke Lucero M.D. [address] [place] [phone] [facility] Referral ID Status Reason Start Date Expiration Date Visits Re quested Visits Authorized [id number] Closed 12/07/2023 06/07/2025 1 1 Reason for Visit * Reason Comments Follow-up Discuss jon cathet er * Outpatient (Routine) - Closed Specialty Diagnoses / Procedures Referred By Leyla rosenthal Referred To Contact Burke Lucero M.D. [address] [place] [phone] [facility] Referral ID Status Reason Start Date Expiration Date Visits Re quested Visits Authorized [id number] Closed 11/09/2023 05/10/2025 1 1 Encounter Details Date Type Department Care Team (Late st Contact Info) Description 12/07/2023 10:30 AM CDT Office Visit Department of Urology in [place], [place] [address] [place] [phone] Burke Strauss M.D. [address] [place] [phone] Hematuria Gross (Primary Dx); Radiation Therapy Cystitis With Hematuria; Anemia; Retention Urinary Chronic Discharge Disposition: Home or Self Care Social History Tobacco Use Types Packs/Day Years Used Date Smoking Tobacco: Never Smokeless Tobacco: Never [facility] Utilities Answer Date Recorded In the past 12 months has [facility] [employer], gas, oil, or water [employer] threatened to shut off services in your [...] living situation today? I have a [facility] place to live 11/15/2023 Sex [...] sterile technique anew 22 Fr. (Ref # [id number]) Silicone 3- way catheter placed with assistance [...] was inadvertently cut. He currently has a22 Turkmen silicone three-way catheter. He will return tomorrow [...] Procedure visit Department of Urology in [address] [address] Burke Strauss M.D. [address] [place] [phone] Discharge Disposition: Home or Self Care 01/11/2024 10:00 AM CDT Office Visit Department of Urology in [address] [address] Burke Strauss M.D. [address] [place] [phone] Discharge Disposition: Home or Self Care Scheduled [...] City/[facility]/ZIP Co de Phone Number [facility] [address] [place] [address], [facility] NPRG [place] [address] [place] [address] * (ABNORMAL) Hemoglobin (12/07/2023 12:25 PM CDT) Hemoglobin 9.2(L) 13.2 - 16.6 g/dL 12/07/2023 12:33 PM CDT NPRG Blood (Blood, Venous) 12/07/2023 12:25 PM CDT 12/07/2023 12:27 PM CDT Burke Strauss M.D. LAB BLOOD ADD-ON Performing Organization Address City/[facility]/ZIP Co de Phone Number [facility] [address] [place] [address], [place] NPR[place] [address] [place] [address] documented in this encounter Visit Diagnoses Diagnosis Hematuria Gross- Primary Radiation Therapy Cystitis With Hematuria Anemia Retention Urinary Chronic documented in this encounter Care Teams Travel Registered Nurse Oncology Relationship Specialty Start Date End Date Elsewhere, Pcp PCP - General Internal Medicine 08/13/23 documented as of this encounter
--- OUTSIDE RECORDS SUMMARY | 2023-12-23 12:46 | XMS_ITS | Referral Summary ---
Author Organization [facility] Address [address] [place] [address] Care Team Providers Care Hot Knife Cutter Name Role Phone Elsewhere, Pcp Primary Care Provider Unavailabl e Source Comments Patient records contain information from all sites at [facility]. For routine questions regarding patient records, call [phone] during business hours, M-F 8:00 AM - 5:00 PM Central Time. Record requests for emergency care only can be directed to [phone] at any time.[facility] Encounters Date Type Department Care Team Description 12/13/2023 9:15 AM CDT Nurse Only Department of Urology in [address] [phone] Burke Strauss M.D. Gray, Margaret A, L.P.N. Nurse Visit (Catheter Irrigation ) Discharge Disposition: Home or Self Care 12/08/2023 9:30 AM CDT Office Visit Department of Urology in [address] [address] Burke Strauss M.D. Retention Urinary Chronic (Primary Dx); Anemia; Anemia In Neoplastic Disease; Clinical Pathologist (Current) Anticoagulant Treatment Discharge Disposition: Home or Self Care 12/07/2023 12:19 PM CDT - 12/07/2023 11:59 PM CDT Hospital Encounter Department of Laboratory Medicine in [address] [phone] Burke Strauss M.D. Anemia; Hematuria Gross; Retention Urinary Chronic Discharge Disposition: Home or Self Care 12/07/2023 10:30 AM CDT Office Visit Department of Urology in [address] [address] Burke Strauss M.D. Hematuria Gross (Primary Dx); Radiation Therapy Cystitis With Hematuria; Anemia; Retention Urinary Chronic Discharge Disposition: Home or Self Care 11/30/2023 6:44 PM CDT - 11/30/2023 8:06 PM CDT Emergency [facility] [address] [place] [phone] Carmen Cherry M.D., M.P.H. Leakage Of Other Urinary Catheter Initial (HCC) (Primary Dx) Discharge Disposition: Home or Self Care 11/14/2023 11:38 PM CDT - 11/17/2023 3:55 PM CDT Hospital Encounter [facility], [facility], Fifth Floor [address] [place] [address] Eliceo uGerrier M.D., Ph.D. Sylvie Álvarez M.B.BJonahSJonah, MRashawn Gauthier M.D. Burkland, Carl B, M.D. Hematuria Gross (Primary Dx) Discharge Disposition: Home-Health Care [facility] 11/15/2023 10:40 AM CDT Ancillary Procedure Department of Wound Ostomy 11/14/2023 Documentation Department of Urology in [place] [address] [place] [address] Sowmya Aviles APRN, C.N.P., M.S.N. 11/14/2023 Intake [facility] 11/14/2023 10:44 AM CDT - 11/14/2023 10:23 PM CDT Emergency [facility] [address] [place] [phone] Sergio Raza M.D. Hematuria (Primary Dx); Malfunction Mechanical Urethral Catheter Initial (HCC) Discharge Disposition: Acute [facility] 11/10/2023 Clinical Communication Department of Urology in [place], [place] [address] [place] [phone] Burke Strauss M.D. Oncology records request 11/09/2023 Clinical Communication Department of Urology in [place], [place] [address] [place] [phone] Burke Strauss M.D. 11/09/2023 11:00 AM CDT Office Visit Department of Urology in [place], [place] [address] [place] [phone] Burke Strauss M.D. Primary Malignant Neoplasm Of Prostate (HCC) (Primary Dx); Retention Urinary Chronic; Hematuria Gross Discharge Disposition: Home or Self Care 10/27/2023 Clinical Communication Department of Urology in [address] [address] Burke Strauss M.D. 10/14/2023 Documentation Department of Urology in [place], [place] [address] [place] [phone] Paula Hernandez M.D. Catheter Care Plan 10/14/2023 1:00 PM CDT Procedure visit Department of Urology in [place], [place] [address] [place] [phone] Paula Hernandez M.D. Reichmann, Lynne G, R.N. Hematuria 09/27/2023 Clinical Communication Department of Urology in [place], [place] [address] [place] [phone] Paula Hernandez M.D. from Last 3 Months [...] teral 11/15/2023 Atherosclerotic Heart Diseas e Of [place] Coronary Artery Without Angina Pectoris 11/15/2023 Overview (11/15/2023): stent placements 2017 Complication Procedure Initial 11/15/2023 Deficiency Iron 11/15/2023 Hyperlipidemia 11/15/2023 Hypertension Essential Primary 11/15/2023 Custodial Current Use Of Oth er Agents Affecting Estrogen Receptors And Estrogen Levels 11/15/2023 Presence Of Other Vascular Implants And Grafts 0 11/15/2023 Other Specified Disorders Of Bladder 11/15/2023 Other Retention Of Urine 11/15/2023 PreDiabetes 11/15/2023 Presence Of Urogenital Implants 11/15/2023 Unspecified Complication Of Genitourinary Prosthetic Device Implant And Graft Initial 11/15/2023 Inferior Vena Cava Filter 11/15/2023 Custodial (Current) Anticoagulant Treatment 09/2023 Presence Of Other [...] [facility] place to live 11/15/2023 Sex and [...] Procedure visit Department of Urology in [address] [phone] Burke Strauss M.D. [address] [place] [phone] Discharge Disposition: Home or Self Care 01/11/2024 10:00 AM CDT Office Visit Department of Urology in [address] [phone] Burke Srtauss M.D. [address] [place] [phone] Discharge Disposition: Home or Self Care Medical Devices Implanted Type Area Professor Of Art History Device Identifier Shelf Expiration Date Model / Serial / Lot Clp Hrzn Ti 6 Clp Lg Orng - [id number] Implanted:Qt y: 1 on 08/15/2023 by Boubacar Brock M.D. at [facility] Hardware e.g. pins/screws /rods Abdomen Guomai [id number] 02/29/2028 [id number] / / [id number] Clp Hrzn Ti 6 Clp Lg Orng - [id number] Implanted:Qt y: 1 on 08/15/2023 by Boubacar Brock M.D. at [facility] Hardware e.g. pins/screws /rods Abdomen [employer] [id number] 02/29/2028 [id number] / / [id number] Clp Hrzn Ti 6 Clp Md Monty - [id number] Implanted:Qt y: 1 on 08/15/2023 by Boubacar Brock M.D. at [facility] Hardware e.g. pins/screws /rods Abdomen [employer] [id number] 03/13/2028 [id number] / / [id number] Clp Hrzn Ti 6 Clp Md Monty - [id number] Implanted:Qt y: 1 on 08/15/2023 by Boubacar Brock M.D. at [facility] Hardware e.g. pins/screws /rods Abdomen [employer] [id number] 03/21/2028 [id number] / / [id number] 3 Stnt Uret Inl 6fx24 - [id number] Implanted:Qt y: 1 on 08/15/2023 by Jakob De Paz M.D. at [facility] Ureteral Stent N/A: Ureter C.[employer].Bard [id number] 11/18/2027 [id number] / / [id number] Procedures Procedure Name Priority Date/Time Associated Diagnosis [...] CDT Burke Strauss M.D. LAB BLOOD ADD-ON [facility] [address] [place] [address], [facility] NPRG [place] [address] [address] [place] [address] * Creatinine with Estimated GFR (12/07/2023 12:25 PM CDT) Creatinine 1.13 0.74 - 1.35 mg/dL 12/07/2023 12:49 PM CDT NPRG Estimated GFR (eGFR) 64 >=60 mL/min/BSA 12/07/2023 12:49 PM CDT NPRG Comment: Estimated GFR calculated using the 2020 CKD_EPI creatinine equation. Blood (Blood, Venous) 12/07/2023 12:25 PM CDT 12/07/2023 12:27 PM CDT Burke Strauss M.D. LAB BLOOD ADD-ON [facility] [address] [place] [address], [facility] [place] [address] [address] [place] [address] * (ABNORMAL) CBC without Differential (11/17/2023 7:24 [...] Rivas D.O. LAB BLOOD ADD-ON [facility] [address] [place] [address], [facility] [place] [address] * (ABNORMAL) Basic Metabolic Panel (11/17/2023 7:24 [...] Rivas D.O. LAB BLOOD ADD-ON [facility] [address] [place] [address], [place] [address] * Glucose, POCT (11/17/2023 6:45 AM CDT) Glucose, POCT, B 107 70 - 140 mg/dL 11/17/2023 6:45 AM CDT MKTO Blood 11/17/2023 6:45 AM CDT 11/17/2023 7:03 AM CDT Generic Rals LAB POCT ORDERABLES- MANUAL [facility] [address] [place] [address] * (ABNORMAL) CBC with Differential, Blood (11/16/2023 [...] CDT Rashawn Vences M.D. LAB BLOOD ADD-ON [facility] [address] [place] [address], [facility] MKTO [facility] in [place] [address] [place] [address] * (ABNORMAL) Comprehensive Metabolic Panel (11/16/2023 6:25 [...] LAB BLOOD ADD-ON Performing Organization Address City/[facility]/ZIP Co de Phone Number [facility] [address] [place] [address] * Transfuse Red Blood Cells : (11/15/2023 6:35 PM CDT) Madelyn Cesar D.O. BLOOD TRANSFUSION OR DERABLES * Testing Location (11/15/2023 11:09 AM CDT) Testing Location [facility] DEFAULT 11/15/2023 11:47 AM CDT MKTO Blood 11/15/2023 11:0 9 AM CDT 11/15/2023 11:47 AM CDT Sergio Raaz M.D. LAB BLOOD BANK TEST ORDERABLES Performing Organization Address [facility] Co de Phone Number [facility] [address] [place] [address], [place] [address] * Coccyx-Wound Ostomy Image Exam (11/15/2023 10:40 [...] RAD IMAGI NG PROCEDURES Performing Organization Address City/[facility]/ZIP Co de Phone Number [facility] NA * ECG 12 Lead (11/15/2023 6:47 AM CDT) Ventricular Rate ECG/Min 65 BPM MUSE AL Interval 144 ms MUSE QRSD Interval 76 ms MUSE QT Interval 430 ms MUSE QTC Interval 447 ms MUSE P [place] -7 degrees MUSE R [place] 9 degrees MUSE T Wave [place] 19 degrees MUSE 11/15/2023 6:47 AM CDT [...] if Indicated (11/15/2023 6:25 AM CDT) Pathologist [facility] Source Urine, Urine, Midstream 11/15/2023 7:49 AM [...] to determine due to color interference Specific [place] SEE COMMENT 1.001 - 1.035 11/15/2023 8:03 AM CDT MKTO Comment:Unable to determine due to color interference Urobilinogen SEE COMMENT 0.2 - 1.0 mg/dL 11/15/2023 8:03 AM CDT MKTO Comment:Unable to determine due to color interference Urine (Urine, Midstream) 11/15/2023 6:25 AM CDT 11/15/2023 6:34 AM CDT Sylvie Wright M.D. LAB URI NE ORDERABLES [facility] [address] [place] [address], [facility] [place] [address] * (ABNORMAL) Microscopic Automated (11/15/2023 6:25 AM [...] LAB URI NE ORDERABLES Performing Organization Address [facility] Co de Phone Number [facility] [address] [place] [address] * Bacterial Culture, Aerobic + Susceptibility, Urine (11/15/2023 6:24 AM CDT) Urine Culture Urogenital microbiota, susceptibilities not performed per laboratory criteria. 11/16/2023 11:36 AM CDT MKTO Urine (Urine, Indwelling Catheter) 11/15/2023 6:24 AM CDT 11/15/2023 9:29 AM CDT Comment:Specimen Source Site : Urine Zachery Tanner APRN C.N.P., M.S. LAB MICROBIOLOGY - GENERAL ORDERABLES Performing Organization Address [facility] de Phone Number [facility] [address] [place] [address] * CT Abdomen Pelvis without IV Contrast [...] BLOOD BANK TEST ORDERABLES Performing Organization Address City/[facility] Co de Phone Number [facility] [address] [place] [address], [facility] NPRG [address] [address] * Type and Screen (with Reflex Antibody [...] BLOOD BANK TEST ORDERABLES Performing Organization Address City/[facility] Co de Phone Number [facility] [address] [place] [address], [facility] NPRG [address] [address] from Last 3 Months Advance Directives For more information, please contact: [phone] * Full Code (Latest Code Status on [...] Full Code: Discussed Care Teams Hot Knife Cutter Relationship Specialty Start Date End Date Elsewhere, Pcp PCP - General Internal Medicine 08/13/23
--- OUTSIDE RECORDS SUMMARY | 2023-12-23 12:46 | XMS_ITS ---
Author Organization [facility] Address [address] [place] [address] Care Team Providers Care Software Build Engineer Name Role Phone Elsewhere, Pcp Primary [...] 11/15/2023 Hyperlipidemia 11/15/2023 Hypertension Essential Primary 11/15/2023 Geological Technician Current Use Of Oth er Agents Affecting Estrogen Receptors And Estrogen Levels 11/15/2023 Presence Of Other Vascular Implants And Grafts 0 11/15/2023 Other Specified Disorders Of Bladder 11/15/2023 Other Retention Of Urine 11/15/2023 PreDiabetes 11/15/2023 Presence Of Urogenital Implants 11/15/2023 Unspecified Complication Of Genitourinary Prosthetic Device Implant And Graft Initial 11/15/2023 Inferior Vena Cava Filter 11/15/2023 Geological Technician (Current) Anticoagulant Treatment 09/2023 Presence Of Other [...] On Elapsed Days Session Dose Total Dose [id number] 04/28/2020 32 300 cGy 6,000 cGy Lifetime Dose Tracking * Chemical Lifetime Dose Automatic Entry Manual Entr y Radiation 20.4 mGy 20.4 mGy 0 mGy Fluoro Time 2.005 minutes 2.005 minutes 0 minutes DAP (uGy-m2) 479.6 uGy-m2 479.6 uGy-m2 0 uGy-m2 Resolved Problems Problem Noted Date Diagnosed Date Resolved Date Hematuria Gross 08/31/2023 11/17/2023
--- OUTSIDE RECORDS SUMMARY | 2023-12-23 12:46 | XMS_ITS | Encounter Summary ---
Author Organization [facility] Address [address] [place] [address] Care Team Providers Care Medical Review Specialist Name Role Phone Elsewhere, Pcp Primary Care Provider Unavailabl e Reason for Referral * Outpatient (Routine) - Authorized Specialty Diagnoses / Procedures Referred By Leyla rosenthal Referred To Contact Urology Wili Sosa M.D. [address] [place] [phone] [facility] Referral ID Status Reason Start Date Expiration Date V isits Requested Visits Authorized [id number] Authorized 12/14/2023 06/14/2025 1 1 Reason for Visit * Reason Comments Nurse Visit Catheter Irrigation * Outpatient (Routine) - Closed Specialty Diagnoses / Procedures Referred By Leyla rosenthal Referred To Contact Urology Diagnoses Retention Urinary Chronic Wili Sosa M.D. [address] [place] [phone] [facility] Referral ID Status Reason Start Date Expiration Date Visits Re quested Visits Authorized [id number] Closed 12/08/2023 06/08/2025 1 1 Encounter Details Date Type Department Care Team (Late st Contact Info) Description 12/13/2023 9:15 AM CDT Nurse Only Department of Urology in [place], [place] [address] [place] [phone] Wili Sosa M.D. [address] [place] [phone] Latonia Dumont L.P.N. Nurse Visit (Catheter Irrigation ) Discharge Disposition: Home or Self Care Social History Tobacco Use Types Packs/Day Years Used Date Smoking Tobacco: Never Smokeless Tobacco: Never [facility] [employer] Answer Date Recorded In the past 12 months has e [employer], gas, oil, or water [employer] threatened to shut off services in your [...] [facility] 11/15/2023 Sex and [...] Procedure visit Department of Urology in [address] [phone] Wili Sosa M.D. [address] [place] [phone] Discharge Disposition: Home or Self Care 01/11/2024 10:00 AM CDT Office Visit Department of Urology in [address] [phone] Wili Sosa M.D. [address] [place] [phone] Discharge Disposition: Home or Self Care Scheduled Referrals Name Type Priority Associated Diagnoses Orde r Schedule Urology office visit (clinic) General Outpatient Referral Routine Expected: 01/11/2024 (Approximate), Expires: 03/14/2025 documented as of this encounter Visit Diagnoses Diagnosis Retention Urinary Chronic documented in this encounter Care Teams Medical Review Specialist Relationship Specialty Start Date End Date Elsewhere, Pcp PCP - General Internal Medicine 08/13/23 documented as of this encounter
--- OUTSIDE RECORDS SUMMARY | 2023-12-23 12:47 | XMS_ITS | Encounter Summary ---
Author Organization [facility] Address [address] [place] [address] Care Team Providers Care Software Quality Assurance Analyst Name Role Phone Elsewhere, Pcp Primary Care Provider Unavailabl e Reason for Referral * Outpatient (Routine) - Authorized Specialty Diagnoses / Procedures Referred By Contaraceli t Referred To Contact Urology Diagnoses Hematuria Paula Benton M.D. [address] [place] [address] [facility] Referral ID Status Reason Start Date Expiration Date V isits Requested Visits Authorized [id number] Authorized 09/15/2023 03/16/2025 1 1 Encounter Details Date Type Department Care Team (Late st Contact Info) Description 09/15/2023 Clinical Communication [facility] [address] [place] [phone] Yasmine Loco Social History Tobacco Use Types Packs/Day Years Used Date Smoking Tobacco: Never Smokeless Tobacco: Never [facility] Utilities Answer Date Recorded In [...] CDT Procedure visit Department of Urology in [place], [place] [address] [place] [phone] Burke Strauss M.D. [facility] [place] [address] Discharge Disposition: Home or Self Care 01/11/2024 10:00 AM CDT Office Visit Department of Urology in [place], [place] [address] [place] [phone] Burke Strauss M.D. [address] [place] [phone] Discharge Disposition: Home or Self Care Scheduled [...] as of this encounter Care Teams Software Quality Assurance Analyst Relationship Specialty Start Date End Date Elsewhere, Pcp PCP - General Internal Medicine 08/13/23 documented as of this encounter
--- OUTSIDE RECORDS SUMMARY | 2023-12-23 12:47 | XMS_ITS | Encounter Summary ---
Author Organization [facility] Address [address] [place] [address] Care Team Providers Care Promotion Writer Name Role Phone Elsewhere, Pcp Primary Care Provider Unavailabl e Reason for Referral * Outpatient (Routine) - Closed Specialty Diagnoses / Procedures Referred By Contac t Referred To Contact Diagnoses Hematuria Procedures URO Urethral cath change (UCC) Paula Hernandez M.D. [address] [place] [address] [employer] Referral ID Status Reason Start Date Expiration Date Visits Re quested Visits Authorized [id number] Closed 09/15/2023 09/14/2024 1 1 * Outpatient (Routine) - Authorized Specialty Diagnoses / Procedures Referred By Contac t Referred To Contact Radiology Diagnoses Hematuria Procedures IR Nephrostomy Tube Exchange Left Paula Hernandez M.D. [address] [place] [address] [employer] Referral ID Status Reason Start Date Expiration Date V isits Requested Visits Authorized [id number] Authorized 09/15/2023 09/14/2024 1 1 Reason for Visit * Reason Comments Blood in Urine Encounter Details Date Type Department Care Team (Latest Contact Info) Description 09/09/2023 7:24 AM CDT - 09/15/2023 5:28 PM CDT Hospital Encounter [facility], [facility], Sixth Floor [address] [place] [phone] Gerri Merrill M.D., Ph.D. [address] [place] [phone] Sumit Holbrook M.D. [address] [place] [phone] Hematuria (Primary Dx) Discharge Disposition: Home or Self Care Social History Tobacco Use Types Packs/Day Years Used Date Smoking Tobacco: Never Smokeless Tobacco: Never [facility] [employer] Answer Date Recorded In the past 12 months has [facility] [employer], gas, oil, or water [employer] threatened to shut off services in your [...] a [facility] place to live 09/09/2023 Sex and [...] AM CDT DISCHARGE SUMMARY BRIEF OVERVIEW Hospital: [facility] Discharge Provider: Sumit Holbrook M.D. Primary Team: [facility] Urology [...] IP CONSULT TO UROLOGY IP CONSULT TO DIRECT SUPPORT STAFF MEMBER WOUND CARE IP CONSULT TO HYPERBARIC MEDICINE [...] reviewed. GI Function: Last BM Date: 09/11/23, Emanuel Stool Chart: Type 5: Soft blobs with [...] 86.8 kg (09/09/2023) Current Weight: 84.5 kg Buckner Body Weight (Calculated) : 75.3 kg BMI [...] or 5%. Estimated Needs: Total Calorie Needs: 8851-1103 calories/day Method to Estimate Energy Needs: kcal/kg [...] about patient's nutritional care please contact pager [phone] on weekdays 07:30-16:00 or [phone] on weekends/holidays ([facility]). * Clara Luu APRN, C.N.P., D.N.P. [...] 0659 09/14/23 07 - 09/15/23 0659 Shift [id number] [phone] 24 Hour Total 4257-6079 [phone] 24 Hour Total INTAKE Other 30 60 [...] please contact Vascular and Interventional Radiology DEBBI ([phone]). Anticoagulation: A percutaneous nephrostomy tube is considered [...] [facility] Inpatient Consult Service at [phone] or the on-call resident at [phone] after 5 PM and on weekends with [...] . Neph tube clear yellow urine. I/O ([id number]): 1.9 L, 1.1 L from the neph [...] questions or concerns. Pager during business hours: [phone] Pager after hours: [phone] * Paula Hernandez M.D. - 09/13/2023 6:05 [...] in place draining clear yellow urine I/O ([id number]): Adequate urine output 2.7 L/248 1 L [...] questions or concerns. Pager during business hours: [phone] Pager after hours: [phone] * Raya Meza Pharm.D., R.Ph., [facility] - 09/12/2023 7:44 AM CDT Images from [...] in place draining clear yellow urine I/O ([id number]): CBI paused for obs Labs: Hb: Hemoglobin [...] Date/Time Bacterial Culture, Aerobic + Susceptibility, Urine [[id number]] (Abnormal) (Susceptibility) Collected: 09/09/23 1128 Lab Status: [...] Susceptible Bacterial Culture, Aerobic + Susceptibility, Urine [[id number]] Collected: 09/03/23 1050 Lab Status: Final result [...] questions or concerns. Pager during business hours: [phone] Pager after hours: [phone] * Js Yang M.D. - 09/11/2023 9:18 [...] DVT - Hold Plavix and Eliquis Js Ynag M.D. 09/11/2023 9:50 AM CDT Please page chief Urology Service [place] [phone] during business hours orat [phone] after hours. * Portillo Crespo Pharm.D., R.Ph., [...] [facility] Pager [phone] * Js Yang M.D. - 09/10/2023 9:50 [...] Service [place] [phone] during business hours orat [phone] after hours. * Quin Harrell Pharm.D., R.Ph., [...] None Unable to Measure N *Wound Bed Open;[place];Yellow;Fibrin/Slough Tissue Exposed None Odor None *Exudate Amount Small Drainage Description Serous;Perez Janiya-wound Assessment Intact;Fragile;[place]o;Purple;Maceration;White Periwound Treatment Liquid skin protectant (SurePrep) *Primary Dressing Gelling fiber/Hydrofiber (Aquacel Ag) *Primary Dressing Frequency of Change Daily & PRN *Secondary Dressing Foam (Sacral Mepilex Border) *Secondary Dressing Frequency of Change Daily & PRN Lengthy Treatment > 30 minutes > 30 minutes Ongoing management Nursing;Wound/scallop cutter Partial head to toe skin assessment completed [...] for medicationuse optimization Stephanie Meza, Pharm.D., R.Ph., [facility] Admission Medication History [...] follow Paula Hernandez M.D. Urology PGY-2 Pager #[phone] Please page Chief Urology at [phone] from 7 AM - 5 PM or at [phone] after hours with any questions/concerns. documented in [...] end. Patient tolerated the procedure well * Jeffrey Deluna M.D. - 09/13/2023 2:21 PM CDT [...] reviewed. GI Function: Last BM Date: 09/11/23, Emanuel Stool Chart: Type 5: Soft blobs with [...] 86.8 kg (09/09/2023) Current Weight: 84.5 kg Buckner Body Weight (Calculated) : 75.3 kg BMI [...] or 5%. Estimated Needs: Total Calorie Needs: 0585-5404 calories/day Method to Estimate Energy Needs: kcal/kg [...] about patient's nutritional care please contact pager [phone] on weekdays 07:30-16:00 or [phone] on weekends/holidays ([facility]). * Clara Luu APRN, C.N.P., D.N.P. [...] CBI. [facility] after difficultywith irrigating his Jon and [...] and recommendations. Please feel free to page [phone] [phone] after 5 PM and on weekends with additional questions. VIR will continue to follow * Alessandra Aguero D.O. - 09/09/2023 5:26 PM CDTAssociated Order(s): IP CONSULT TO VASCULAR MEDICINE VASCULAR MEDICINE CONSULT NOTE Requesting Physician: Gerri Merrill M.D.,* SUBJECTIVE REASON FOR CONSULT: assistance with AC management, patient on plavix and eliquis admitted with refractory hematuria requing CBI. Recommend heparin drip? thanks [place] [facility] [phone] HISTORY OF PRESENT ILLNESS Mr. Vega is [...] stents placed in total (2016, no prior ID, completed after positive stress test) Recommended for [...] for radiation proctitis SOCIAL HISTORY Lives in [place], [place] OBJECTIVE AVSS General: Lying in bed, [...] with Dr. Victoria, the chief urology resident conveyor monitor. Please page chief Urology [place] [phone] [place] [phone] after hours. Paula Hernandez M.D. 09/09/23 9:10 [...] End of Shift Summary: Pt DC'd to [facility] with family. Patient [...] Urology consulted after discussion with the catheter sound engineering technician who advised that for this patient they are required to get approval from Urologyprior to placing catheter. ED Course as of 09/09/23 0958 TueSeptember 09, 2023 0822 Hemoglobin(!): 8.9 Down from 9.6 one-week ago 0822 Leukocytes(!): 14.5 New leukocytosis with neutrophilia 0822 INR: 1.1 0823 Discussed with the catheter sound engineering technician. Bladder scan showed 125 mL. There [...] Procedure visit Department of Urology in [address] [address] Burke Strauss M.D. [address] [place] [address] Discharge Disposition: Home or Self Care 01/11/2024 10:00 AM CDT Office Visit Department of Urology in [place], [place] [address] [place] [address] Burke Strauss M.D. [address] [place] [address] Discharge Disposition: Home or Self Care Pending [...] CBC without Differential (09/15/2023 3:37 AM CDT) [facility] Hemoglobin 9.8(L) 13.2 - 16.6 g/dL [...] [place] [address] [place] [address] * Heparin Anti-Xa Assay (09/14/2023 3:19 AM [...] Sumit Holbrook M.D. LAB BLOOD NON ADD-ON [facility] [address] [place], [place] [phone] [place] [address] [address] [place] [address] * (ABNORMAL) CBC without Differential (09/14/2023 3:19 [...] CDT Paula Hernandez M.D. [place] [address], [facility] [place] [address] * IR Nephrostomy Tube Placement Left (09/13/2023 2:20 PM CDT) Anatomical Region Laterality Modality Genito Urinary, Vascular Int erventional RST LOS, Vascular Interventional ARZ LOS, Vascular Interventional FLA LOS Left X-Ray Angiography Impressions 09/13/2023 2:33 PM CDT Left 10 Guatemalan percutaneous nephrostomy tube placement. EP Narrative 09/13/2023 [...] tract was further dilated and a 10 Guatemalan nephrostomy tube was placed with loop formed [...] sedation timewas: 9 minutes. IMPRESSION: Left 10 Guatemalan percutaneous nephrostomy tube placement. EP Latisha Whitehead M.D. IMG IR PROCEDURE S * Fungal Culture, Routine (09/13/2023 2:17 PM CDT) Fungal Culture, Routine No growth after 24 days of incubation. 10/08/2023 1:02 AM CDT DTL Fluid (Kidney, Left) 09/13/2023 2:17 PM CDT 09/13/2023 3:56 PM CDT Comment:Specimen Source Site : Fluid Latisha Whitehead M.D. LAB MICROBIOLOGY - GENERAL ORDERABLES [facility] [address] [place] [address], [facility] [address] [place] [address] * Bacterial Culture, Anaerobic + Susceptibility (09/13/2023 2:17 PM CDT) Bacterial Culture, Anaerobic + Susc No growth after 14 days of incubation. 09/27/2023 8:04 AM CDT DTL Fluid (Kidney, Left) 09/13/2023 2:17 PM CDT 09/13/2023 3:56 PM CDT Comment:Specimen Source Site : Fluid Latisha Whitehead M.D. LAB MICROBIOLOGY - GENERAL ORDERABLES Performing Organization Address City/[facility]/ZIP Co de Phone Number [facility] [address] [place] [address], [facility] [address] [place] [address] * Gram Stain (09/13/2023 2:17 PM CDT) Gram Stain No organisms seen. White blood cells, Rare 09/13/2023 9:02 PM CDT DTL Fluid (Kidney, Left) 09/13/2023 2:17 PM CDT 09/13/2023 3:56 PM CDT Comment:Specimen Source Site : Fluid Latisha Whitehead M.D. LAB MICROBIOLOGY - GENERAL ORDERABLES Performing Organization Address City/[facility]/ZIP Co de Phone Number [facility] [address] [place] [address], [facility] 200 [place] [address] * Bacterial Culture, Aerobic + Susceptibility (09/13/2023 2:17 PM CDT) Bacterial Culture, Aerobic + Susc No growth after 5 days of incubation. 09/18/2023 12:35 PM CDT DTL Fluid (Kidney, Left) 09/13/2023 2:17 PM CDT 09/13/2023 3:56 PM CDT Comment:Specimen Source Site : Fluid Latisha Whitehead M.D. LAB MICROBIOLOGY - GENERAL ORDERABLES [facility] [address] [place] [address], [facility] [address] [place] [address] * (ABNORMAL) CBC without Differential (09/13/2023 5:57 [...] CDT Ko Victoria M.D. [place] [address], [facility] [address] [place] [address] * Heparin Anti-Xa Assay (09/13/2023 5:56 AM [...] LAB BLOOD NON ADD-ON Performing Organization Address City/[facility] Co de Phone Number [facility] 200 [place] [address], [facility] [address] [place] [address] * APTT (Activated Partial Thromboplastin Time) (09/13/2023 5:56 AM CDT) Pathologist [facility] Activated Partial Thrombopl Time, P 35 25 - 37 sec 09/13/2023 7:14 AM CDT DTL Blood (Blood, Venous) 09/13/2023 5:56 AM CDT 09/13/2023 6:53 AM CDT Sumit Holbrook M.D. LAB BLOOD ADD-ON Performing Organization Address [facility] Co de Phone Number [facility] [address] [place] [address], [facility] 200 [place] [address] * (ABNORMAL) Basic Metabolic Panel (09/13/2023 5:56 [...] [place] [address] [place] [address], [facility] [address] [place] [address] * NM Kidney DMSA (09/12/2023 12:21 PM [...] reduced radiotracer uptake asdescribed. Js Yang M.D. [facility] PROCEDURES * Transfuse Red Blood Cells [...] M.D. LAB BLOOD ADD-ON Performing Organization Address City/[facility]/ZIP Co de Phone Number [facility] [address] [place] [address] * (ABNORMAL) APTT (Activated Partial Thromboplastin Time) (09/12/2023 3:42 AM CDT) [facility] Activated Partial Thrombopl Time, P 49(H) 25 - 37 sec 09/12/2023 4:35 AM CDT DTL Blood (Blood, Venous) 09/12/2023 3:42 AM CDT 09/12/2023 4:00 AM CDT Gerri Merrill M.D., Ph.D. LAB BLOOD A DD-ON Performing Organization Address [facility] Co de Phone Number [facility] [address] [facility] [address] [place] [address] * (ABNORMAL) Basic Metabolic Panel (09/11/2023 8:23 [...] CDT Js Yang M.D. LAB BLOOD ADD-ON [facility] [address] [place] [address], [facility] [address] [place] [address] * (ABNORMAL) CBC without Differential (09/11/2023 8:23 [...] M.D. LAB BLOOD ADD-ON Performing Organization Address City/[facility]/ZIP Co de Phone Number [facility] [address] [facility] [address] [place] [address] * (ABNORMAL) APTT (Activated Partial Thromboplastin Time) (09/10/2023 11:42 PM CDT) [facility] Activated Partial Thrombopl Time, P 47(H) 25 - 37 sec 09/11/2023 2:05 AM CDT DTL Blood (Blood, Venous) 09/10/2023 11:42 PM CDT 09/11/2023 2:05 AM CDT Gerri Merrill M.D., Ph.D. LAB BLOOD A DD-ON Performing Organization Address [facility] Co de Phone Number [facility] [address] [facility] [address] [place] [address] * [place] Urinary Bladder (09/10/2023 8:41 PM [...] [facility] [address] [place] [address], [place] [facility] [address] [place] [address] * (ABNORMAL) APTT (Activated Partial Thromboplastin Time) (09/10/2023 10:11 AM CDT) Pathologist [facility] Activated Partial Thrombopl Time, P 63(H) 25 - 37 sec 09/10/2023 10:57 AM CDT DTL Blood (Blood, Venous) 09/10/2023 10:11 AM CDT 09/10/2023 10:40 AM CDT Gerri Merrill M.D., Ph.D. LAB BLOOD A DD-ON Performing Organization Address [facility] Co de Phone Number [facility] [address] [place], [place] [phone] [place] [address] DTL [facility] 200 [place] [address] * (ABNORMAL) CBC without Differential (09/10/2023 3:27 [...] M.D. LAB BLOOD ADD-ON Performing Organization Address [facility]/ZIP Co de Phone Number [facility] [address] [place], [place] [address] [address] [place] [address] * (ABNORMAL) APTT (Activated Partial Thromboplastin Time) (09/10/2023 12:06 AM CDT) [facility] Activated Partial Thrombopl Time, P 57(H) 25 - 37 sec 09/10/2023 1:05 AM CDT DTL Blood (Blood, Venous) 09/10/2023 12:06 AM CDT 09/10/2023 12:33 AM CDT Gerri Merrill M.D., Ph.D. LAB BLOOD A DD-ON Performing Organization Address City/[facility]/ZIP Co de Phone Number [facility] [address] [place], [place] [phone] [place] [address] 200 [place] [address] * APTT (Activated Partial Thromboplastin Time) (09/09/2023 5:08 PM CDT) [facility] Activated Partial Thrombopl Time, P 31 25 - 37 sec 09/09/2023 5:24 PM CDT STMA Blood (Blood, Venous) 09/09/2023 5:08 PM CDT 09/09/2023 5:12 PM CDT oK Victoria M.D. LAB BLOOD ADD-ON Performing Organization Address City/[facility]/ZIP Co de Phone Number [facility] [address] [place], [place] [phone] [place] [address] 200 [place] [address] * (ABNORMAL) Dipstick, Urine (09/09/2023 11:28 AM CDT) [facility] Hemoglobin, QL, U Large(A) Negative 09/09/2023 [...] Church M.D. LAB URINE ORDERA BLES [facility] [address] [place] [address], [facility] [address] [place] [address] * pH, Random, Urine (09/09/2023 11:28 AM CDT) pH, Random, U 6.3 4.5 - 8.0 09/09/2023 12:19 PM CDT DTL Urine 09/09/2023 11:2 8 AM CDT 09/09/2023 11:58 AM CDT Jeffery Church M.D. LAB URINE ORDERA BLES Performing Organization Address City/[facility]/ZIP Co de Phone Number [facility] [address] [place] [address], [facility] [address] [place] [address] * Osmolality, Urine (09/09/2023 11:28 AM CDT) Osmolality, U 380 150 - 1150 mOsm/kg 09/09/2023 12:19 PM CDT DTL Urine 09/09/2023 11:2 8 AM CDT 09/09/2023 11:58 AM CDT Jeffery Church M.D. LAB URINE ORDERA BLES [facility] [address] [place] [address], [facility] [address] [place] [address] * (ABNORMAL) Microscopic Manual (09/09/2023 11:28 AM [...] LAB URINE MARLONA SHELLY Performing Organization Address City/[facility]/ZIP Co de Phone Number [facility] [address] [place] [address], [facility] [address] [place] [address] * (ABNORMAL) Gram Stain, Urine (09/09/2023 11:28 AM CDT) Source Urine, Urine, Straight Catheter 09/09/2023 11:58 AM CDT DTL Gram Stain, U Positive(A) Negative 09/09/2023 12:16 PM CDT DTL Comment: Few Gram-negative bacilli ? Yeast Urine 09/09/2023 11:2 8 AM CDT 09/09/2023 11:58 AM CDT Jeffery Church M.D. LAB URINE MARLONA SHELLY [facility] [address] [place] [address], [facility] DTL [facility] [address] [place] [address] * (ABNORMAL) Bacterial Culture, Aerobic + Susceptibility, Urine (09/09/2023 11:28 AM CDT) [facility] Signature Urine Culture ENTEROBACTER CLOACAE COMPLEX [...] MICROBIOLOGY - GENERAL ORDERABLES Performing Organization Address [facility] Co de Phone Number [facility] [address] [place] [address], [facility] DTL [facility] [address] [place] [address] * (ABNORMAL) Urinalysis, with Microscopic: Urine, Straight [...] 09/09/2023 1:02 PM CDT DTL Predicted Range [id number] mg/24 h 09/09/2023 1:02 PM CDT DTL Comment Micro done on <2.5 mL 09/09/2023 12:27 PM CDT DTL Urine (Urine, Straight Catheter) 09/09/2023 11:28 AM CDT 09/09/2023 11:58 AM CDT Jeffery Church M.D. LAB URINE ORDERA BLES Performing Organization Address [facility]/ZIP Co de Phone Number [facility] [address] [place] [address], [facility] [address] [place] [address] * [place] Kidneys Bilateral with Bladder (09/09/2023 [...] CDT Jeffery Church M.D. LAB BLOOD ADD-ON [address] [address], [place] [address] * (ABNORMAL) CBC with Differential, Blood (09/09/2023 [...] [place] 200 [place] [address], [facility] STMA [facility] [address] [place] [address] * (ABNORMAL) Basic Metabolic Panel (09/09/2023 8:04 [...] M.D. LAB BLOOD ADD-ON Performing Organization Address City/[facility] Co de Phone Number [facility] [address] [place] [address], [facility] [place] [address] * Type and Screen (with Reflex Antibody [...] BANK T EST ORDERABLES Performing Organization Address [facility] Co de Phone Number [facility] [address] [place] [address], [facility] STRM [address] [address] documented in this encounter Visit Diagnoses Diagnosis [...] documented as of this encounter Care Teams Promotion Writer Relationship Specialty Start Date End Date Elsewhere, Pcp PCP - General Internal Medicine 08/13/23 documented as of this encounter
--- OUTSIDE RECORDS SUMMARY | 2023-12-23 12:47 | XMS_ITS | Encounter Summary ---
Author Organization [facility] Address [address] [place] [address] Care Team Providers Care Metal And Plastic Heater Name Role Phone Elsewhere, Pcp Primary Care Provider Unavailabl e Encounter Details Date Type Department Care Team (Late st Contact Info) Description 09/21/2023 Clinical Communication Department of Urology in [place], [place] [address] [place] [address] Paula Hernandez M.D. [address] [place] [address] Social History Tobacco Use Types Packs/Day Years Used Date Smoking Tobacco: Never Smokeless Tobacco: Never [facility] Utilities Answer Date Recorded In the past 12 months has [facility] [employer], gas, oil, or water [employer] threatened to shut off services in [...] 2:37 PM CDT I called the patient's [place] physician who he saw yesterday, 09/19 in [...] CDT Procedure visit Department of Urology in [place] [address] [place] [address] Burke Strauss M.D. [facility] [place] [address] Discharge Disposition: Home or Self Care 01/11/2024 10:00 AM CDT Office Visit Department of Urology in [place] [address] [place] [address] Burke Strauss M.D. [address] [place] [address] Discharge Disposition: Home or Self Care documented as of this encounter Visit Diagnoses Not on filedocumented in this encounter Care Teams Metal And Plastic Heater Relationship Specialty Start Date End Date Elsewhere, Pcp PCP - General Internal Medicine 08/13/23 documented as of this encounter
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
--- OUTSIDE RECORDS SUMMARY | 2023-12-23 12:47 | XMS_ITS | Encounter Summary ---
Author Organization [facility] Address [address] [place] [address] Care Team Providers Care Shoe Cementer Name Role Phone Elsewhere, Pcp Primary Care Provider Unavailabl e Reason for Visit * Reason Onset Date Comments Oncology records request 11/10/2023 Encounter Details Date Type Department Care Team (Latest Contact Info) Description 11/10/2023 Clinical Communication Department of Urology in [place], [place] [address] [place] [phone] Burke Strauss M.D. [address] [place] [phone] Oncology records request Social History Tobacco Use [...] [facility] 11/15/2023 Sex and Gender [...] Information was filled out and faxed to [facility], Dr. Mireya Tan clinic per Dr. Strauss. Will wait for these to come through and notify Dr. Strauss for his review. [facility] documented in this encounter Plan of Treatment Upcoming Encounters Date Type Department Care Team (Latest Contact Info) Description 01/11/2024 9:00 AM CDT Procedure visit Department of Urology in [place], [place] [address] [place] [address] Burke Strauss M.D. [address] [place] [phone] Discharge Disposition: Home or Self Care 01/11/2024 10:00 AM CDT Office Visit Department of Urology in [place] [address] [place] [address] Burke Strauss M.D. [address] [place] [phone] Discharge Disposition: Home or Self Care documented as of this encounter Visit Diagnoses Not on filedocumented in this encounter Care Teams Shoe Cementer Relationship Specialty Start Date End Date Elsewhere, Pcp PCP - General Internal Medicine 08/13/23 documented as of this encounter
--- OUTSIDE RECORDS SUMMARY | 2023-12-23 12:47 | XMS_ITS | Encounter Summary ---
Author Organization [facility] Address [address] [place] [address] Care Team Providers Care Director Meetings Name Role Phone Elsewhere, Pcp Primary Care Provider Unavailabl e Reason for Referral * Outpatient (Routine) - Closed Specialty Diagnoses / Procedures Referred By Leyla t Referred To Contact Urology Burke Strauss M.D. [address] [place] [phone] [facility] Referral ID Status Reason Start Date Expiration Date Visits Re quested Visits Authorized [id number] Closed 11/09/2023 05/10/2025 1 1 * Outpatient (Routine) - Authorized Specialty Diagnoses / Procedures Referred By Contaraceli t Referred To Contact Diagnoses Retention Urinary Chronic Procedures URO Urethral cath change (UCC) Burke Strauss M.D. [address] [place] [phone] [facility] Region Referral ID Status Reason Start Date Expiration Date V isits Requested Visits Authorized [id number] Authorized 11/09/2023 11/08/2024 15 15 Reason for Visit * Reason Comments Consult Discuss catheter thomas nges * Appointment Request (Routine) - Closed Specialty Diagnoses / Procedures Referred By Leyla rosenthal Referred To Contact Urology Referral ID Status Reason Start Date Expiration Date Visits Re quested Visits Authorized [id number] Closed 10/27/2023 10/26/2024 1 1 Encounter Details Date Type Department Care Team (Late st Contact Info) Description 11/09/2023 11:00 AM CDT Office Visit Department of Urology in [place], [place] [address] [place] [phone] Burke Strauss M.D. [address] [place] [phone] Primary Malignant Neoplasm Of Prostate (HCC) (Primary Dx); Retention Urinary Chronic; Hematuria Gross Discharge Disposition: Home or Self Care Social History Tobacco Use Types Packs/Day Years Used Date Smoking Tobacco: Never Smokeless Tobacco: Never [facility] Innofide[employer]ities Answer Date Recorded In the past [address] [facility] electric, gas, oil, or water [employer] threatened to shut off services in your [...] ILLNESS Patient presents to establish care from [facility]. He has multiple urologic issues [...] the past few days. Original plan from [place] was to exchange his left nephrostomy tube in 3 months, due 12/14/2023. He reports getting good output from the left neph tube without hematuria. 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 He has completed 19 of 45 planned treatments and expects to finish that course in early December. Metastatic prostate cancer is being managed by [facility], Dr. Mireya Tan. Release of [...] an antegrade nephrogram through Interventional Radiology in [place] prior to nephrostomy tube removal. documented in this encounter Plan of Treatment Upcoming Encounters Date Type Department Care Team (Latest Contact Info) Description 01/11/2024 9:00 AM CDT Procedure visit Department of Urology in [address] [phone] Burke Strauss M.D. [address] [place] [phone] Discharge Disposition: Home or Self Care 01/11/2024 10:00 AM CDT Office Visit Department of Urology in [address] [phone] Burke Strauss M.D. [address] [place] [phone] Discharge Disposition: Home or Self Care Scheduled [...] Gross documented in this encounter Care Teams Director Meetings Relationship Specialty Start Date End Date Elsewhere, Pcp PCP - General Internal Medicine 08/13/23 documented as of this encounter
--- OUTSIDE RECORDS SUMMARY | 2023-12-23 12:47 | XMS_ITS | Encounter Summary ---
Author Organization [facility] Address [address] [place] [address] Care Team Providers Care Karate Instructor Name Role Phone Elsewhere, Pcp Primary Care Provider Unavailabl e Reason for Visit * Reason Comments Catheter Care Plan Encounter Details Date Type Department Care Team (Late st Contact Info) Description 10/14/2023 Documentation Department of Urology in [place], [place] [address] [place] [address] Paula Hernandez M.D. [address] [place] [address] Catheter Care Plan Social History Tobacco Use Types Packs/Day Years Used Date Smoking Tobacco: Never Smokeless Tobacco: Never [facility] Utilities Answer Date Recorded In [...] of this encounter Progress Notes * Ashleigh Ferreria RoJnahN. - 10/14/2023 2:05 PM CDT Treatment Summary and Care Plan - Catheter Exchange General Information [facility]/ Patient Name: Kalen Vega Date: 1940 Health Care Provider(s) Medical Provider(s) Cesar Mccollum M.D. Institution: No address on file [place], [place] Urology Provider(s) Chief Urology residents Last seen by Paula Hernandez M.D. Institution: [facility] Treatment Summary Diagnosis Hydronephrosis; hematuria; metastatic prostate cancer; radiation cystitis Treatment Surgery []Yes [x] No Surgery Date(s) Surgical Procedure/Location/Findings Current Treatment Information/Follow-up Care Plan Frequency of Catheter Changes (i.e. every 4 weeks) every 4 weeks Catheter Information Type: Coude red rubber Size:20F Reference #: [id number] Catheter Prescription Expires NA Last seen by [...] CDT Procedure visit Department of Urology in [place] [address] [place] [address] Burke Strauss M.D. [address] [place] [phone] Discharge Disposition: Home or Self Care 01/11/2024 10:00 AM CDT Office Visit Department of Urology in [place] [address] [place] [address] Burke Strauss M.D. [address] [place] [phone] Discharge Disposition: Home or Self Care documented as of this encounter Visit Diagnoses Not on filedocumented in this encounter Care Teams Karate Instructor Relationship Specialty Start Date End Date Elsewhere, Pcp PCP - General Internal Medicine 08/13/23 documented as of this encounter
--- OUTSIDE RECORDS SUMMARY | 2023-12-23 12:47 | XMS_ITS | Encounter Summary ---
Author Organization [facility] Address [address] [place] [address] Care Team Providers Care Repair Servicer Name Role Phone Elsewhere, Pcp Primary Care Provider Unavailabl e Encounter Details Date Type Department Care Team (Late st Contact Info) Description 10/27/2023 Clinical Communication Department of Urology in [place], [place] [address] [place] [phone] Burke Strauss M.D. [address] [place] [address] Social History Tobacco Use Types Packs/Day Years Used Date Smoking Tobacco: Never Smokeless Tobacco: Never [facility] Utilities Answer Date Recorded In the past 12 months has e electric, gas, oil, or water [employer] threatened to shut off services in your [...] 2:15 PM CDT Patient follows urology in [place] but would like to transfer his care to [place] as it is closer to home. It looks like for Hematuria. Is this patient ok to see you? He has a catheter in and will need cath changes going forward. documented in this encounter Plan of Treatment Upcoming Encounters Date Type Department Care Team (Latest Contact Info) Description 01/11/2024 9:00 AM CDT Procedure visit Department of Urology in [place] [address] [place] [address] Burke Strauss M.D. [address] [place] [phone] Discharge Disposition: Home or Self Care 01/11/2024 10:00 AM CDT Office Visit Department of Urology in [address] [phone] Burke Strauss M.D. [address] [place] [phone] Discharge Disposition: Home or Self Care documented as of this encounter Visit Diagnoses Not on filedocumented in this encounter Care Teams Repair Servicer Relationship Specialty Start Date End Date Elsewhere, Pcp PCP - General Internal Medicine 08/13/23 documented as of this encounter
--- OUTSIDE RECORDS SUMMARY | 2023-12-23 12:47 | XMS_ITS | Encounter Summary ---
Author Organization [facility] Address [address] [place] [address] Care Team Providers Care Diver Helper Name Role Phone Elsewhere, Pcp Primary Care Provider Unavailabl e Encounter Details Date Type Department Care Team (Late st Contact Info) Description 09/27/2023 Clinical Communication Department of Urology in [place], [place] [address] [place] [phone] Paula Hernandez M.D. [address] [place] [address] Social History Tobacco Use Types Packs/Day Years Used Date Smoking Tobacco: Never Smokeless Tobacco: Never [facility] Utilities Answer Date Recorded In the past 12 months has [facility] [employer], gas, oil, or water [employer] threatened to shut off services in your [...] Procedure visit Department of Urology in [address] [phone] Burke Strauss M.D. [address] [place] [phone] Discharge Disposition: Home or Self Care 01/11/2024 10:00 AM CDT Office Visit Department of Urology in [place], [place] [address] [place] [address] Burke Strauss M.D. [address] [place] [phone] Discharge Disposition: Home or Self Care documented as of this encounter Visit Diagnoses Not on filedocumented in this encounter Care Teams Diver Helper Relationship Specialty Start Date End Date Elsewhere, Pcp PCP - General Internal Medicine 08/13/23 documented as of this encounter
--- OUTSIDE RECORDS SUMMARY | 2023-12-23 12:47 | XMS_ITS | Encounter Summary ---
Author Organization [facility] Address [address] [place] [address] Care Team Providers Care Loadmaster Name Role Phone Elsewhere, Pcp Primary Care Provider Unavailabl e Encounter Details Date Type Department Care Team (Late st Contact Info) Description 11/09/2023 Clinical Communication Department of Urology in [place], [place] [address] [place] [address] Burke Strauss M.D. [address] [place] [address] Social History Tobacco Use Types Packs/Day Years Used Date Smoking Tobacco: Never Smokeless Tobacco: Never [facility] Utilities Answer Date Recorded [...] CDT Procedure visit Department of Urology in [address] [phone] Burke Strauss M.D. [address] [place] [phone] Discharge Disposition: Home or Self Care 01/11/2024 10:00 AM CDT Office Visit Department of Urology in [address] [address] Burke Strauss M.D. [address] [place] [phone] Discharge Disposition: Home or Self Care documented as of this encounter Visit Diagnoses Not on filedocumented in this encounter Care Teams Loadmaster Relationship Specialty Start Date End Date Elsewhere, Pcp PCP - General Internal Medicine 08/13/23 documented as of this encounter
--- OUTSIDE RECORDS SUMMARY | 2023-12-23 12:47 | XMS_ITS | Encounter Summary ---
Author Organization [facility] Address [address] [place] [address] Care Team Providers Care Spectrographic Analyst Name Role Phone Elsewhere, Pcp Primary Care Provider Unavailabl e Reason for Referral * Outpatient (Routine) - Authorized Specialty Diagnoses / Procedures Referred By Contac t Referred To Contact Diagnoses Hematuria Gross Procedures DX Chest AP or PA and Lateral 2 Views Paula Hernandez M.D. [address] [place] [address] [facility] Referral ID Status Reason Start Date Expiration Date V isits Requested Visits Authorized [id number] Authorized 09/16/2023 09/15/2024 1 1 Encounter Details Date Type Department Care Team (Late st Contact Info) Description 09/16/2023 Orders Only Department of Urology in [place], [place] [address] [place] [phone] Paula Hernandez M.D. [address] [place] [address] Hematuria Gross (Primary Dx) Social History Tobacco Use Types Packs/Day Years Used Date Smoking Tobacco: Never Smokeless Tobacco: Never [facility] Utilities Answer Date Recorded In the [...] [facility] place [facility] live 09/09/2023 Sex and Gender Information Value Date Recorded Sex Assigned at Not on file Gender Identity Not on file Sexual Orientation Not on file documented as of this encounter Plan of Treatment Upcoming Encounters Date Type Department Care Team (Latest Contact Info) Description 01/11/2024 9:00 AM CDT Procedure visit Department of Urology in [place], [place] [address] [place] [address] Burke Strauss M.D. [address] [place] [address] Discharge Disposition: Home or Self Care 01/11/2024 10:00 AM CDT Office Visit Department of Urology in [place], [place] [address] [place] [address] Burke Strauss M.D. [address] [place] [address] Discharge Disposition: Home or Self Care Scheduled [...] documented as of this encounter Care Teams Spectrographic Analyst Relationship Specialty Start Date End Date Elsewhere, Pcp PCP - General Internal Medicine 08/13/23 documented as of this encounter
--- OUTSIDE RECORDS SUMMARY | 2023-12-23 12:47 | XMS_ITS | Encounter Summary ---
Author Organization [facility] Address [address] [place] [address] Care Team Providers Care Electrical Controls Technician Name Role Phone Elsewhere, Pcp Primary Care Provider Unavailabl e Reason for Visit * Reason Comments Urinary Retention * Outpatient (Routine) - Closed Specialty Diagnoses / Procedures Referred By Contaraceli t Referred To Contact Diagnoses Hematuria Procedures URO Urethral cath change (UCC) Paula Hernandez M.D. [address] [place] [phone] [facility] Referral ID Status Reason Start Date Expiration Date Visits Re quested Visits Authorized [id number] Closed 09/15/2023 09/14/2024 1 1 Encounter Details Date Type Department Care Team (Late st Contact Info) Description 10/14/2023 1:00 PM CDT Procedure visit Department of Urology in [place], [place] [address] [place] [phone] Paula Hernandez M.D. [address] [place] [phone] Khadra Miller R.N. [address] [place] [phone] Hematuria Social History Tobacco Use Types Packs/Day [...] Procedure visit Department of Urology in [address] [phone] Burke Strauss M.D. [address] [place] [phone] Discharge Disposition: Home or Self Care 01/11/2024 10:00 AM CDT Office Visit Department of Urology in [address] [phone] Burke Strauss M.D. [address] [place] [phone] Discharge Disposition: Home or Self Care documented as of this encounter Visit Diagnoses Diagnosis Hematuria documented in this encounter Care Teams Electrical Controls Technician Relationship Specialty Start Date End Date Elsewhere, Pcp PCP - General Internal Medicine 08/13/23 documented as of this encounter
--- OUTSIDE RECORDS SUMMARY | 2023-12-23 12:47 | XMS_ITS | Encounter Summary ---
Author Organization [facility] Address [address] [place] [address] Care Team Providers Care Party Plan Sales Director Name Role Phone Elsewhere, Pcp Primary Care Provider Unavailabl e Reason for Visit * Reason Onset Date Comments follow up questions 09/16/2023 Encounter Details Date Type Department Care Team (Latest Contact Info) Description 09/16/2023 Clinical Communication Department of Urology in [place], [place] [address] [place] [address] Provider, Unknown follow up questions Social History Tobacco Use Types Packs/Day Years Used Date Smoking Tobacco: Never Smokeless Tobacco: Never [employer] Utilities Answer Date Recorded In the past 12 months has [facility] [employer], gas, oil, or water [employer] threatened to shut off services in your [...] [facility] live 09/09/2023 Sex [...] CDT Procedure visit Department of Urology in [place], [place] [address] [place] [address] Burke Strauss M.D. [facility] [place] [address] Discharge Disposition: Home or Self Care 01/11/2024 10:00 AM CDT Office Visit Department of Urology in [place], [place] [address] [place] [address] Burke Strauss M.D. 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
--- OUTSIDE RECORDS SUMMARY | 2023-12-23 12:48 | XMS_ITS | Encounter Summary ---
Author Organization [facility] Address [address] [place] [address] Care Team Providers Care Dishwashing Machine Repairer Name Role Phone Elsewhere, Pcp Primary Care Provider Unavailabl e Encounter Details Date Type Department Care Team (Latest Contact Info) Description 08/30/2023 Intake [facility] Social History Tobacco Use Types Packs/Day Years Used Date Smoking Tobacco: Never Smokeless Tobacco: Never [facility] Utilities Answer Date Recorded In [...] CDT Procedure visit Department of Urology in [place] [address] [place] [address] Burke Strauss M.D. [facility] [place] [address] Discharge Disposition: Home or Self Care 01/11/2024 10:00 AM CDT Office Visit Department of Urology in [place] [address] [place] [address] Burke Strauss M.D. 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
--- OUTSIDE RECORDS SUMMARY | 2023-12-23 12:48 | XMS_ITS | Encounter Summary ---
Author Organization [facility] Address [address] [place] [address] Care Team Providers Care Superintendent House Name Role Phone Elsewhere, Pcp Primary Care [...] CDT Procedure visit Department of Urology in [place] [address] [place] [address] Burke Strauss M.D. [facility] [place] [address] Discharge Disposition: Home or Self Care 01/11/2024 10:00 AM CDT Office Visit Department of Urology in [place] [address] [place] [address] Burke Strauss M.D. [address] [place] [phone] Discharge Disposition: Home or Self Care documented as of this encounter Visit Diagnoses Not on filedocumented in this encounter Additional Health Concerns Infection Onset Date Last Indicated Resolved Time MDR GNB 09/09/2023 09/09/2023 09/16/2023 5:56 AM CDT documented as of this encounter Care Teams Superintendent House Relationship Specialty Start Date End Date Elsewhere, Pcp PCP - General Internal Medicine 08/13/23 documented as of this encounter
--- OUTSIDE RECORDS SUMMARY | 2023-12-23 12:48 | XMS_ITS | Data Portability ---
Author Organization [facility], [facility] Address [address] [place] [address] Care Team Providers Care Stock Tracer Name Role Phone MASOUD SAUER Primary Care Provider Assessment No assessment recorded. Plan of Treatment Reminders Order Date Submit Date Provider Last Modified By Organization Details Last Modified Time Details Appointments None recorded . Lab urinalys is, dipstick 2023 024 [email or web address] [facility], [address] [place], [address], 4 15:08:54 culture, urine [address] [facility], [address], [place], [address], 4 10:11:11 Referral None recorded . Procedures None recorded . Surgeries cystosco py with ureteral stent exchange (SURG) 2021 022 [email or web address] Not available 16:50:47 cystosco py with ureteral stent exchange (SURG) 2021 022 [email or web address] Not available 15:46:30 Imaging None recorded . Medication Orders Myrbetri q 50 mg tablet,e xtended release 2021 022 [id number], [address] [place], [place], [id number], 2 17:50:02 Bactrim DS 800 mg-160 mg tablet 2023 024 [email or web address] [facility][id number], [address] [place], [place], [phone], 16:19:28 Patient TargetsNo targets recorded. Patient InstructionsNo [...] for provi sydni revie w. Not Available [facility] [address], [place], [address], 06/25/2023 10:11:11 06/23/19 24 06/23/2023 urina lysis , dipst ick Color-Status Red Not Available [facility] [address], [place], [address], 06/23/2023 15:08:10 06/23/19 24 06/23/2023 urina lysis , dipst ick pH-Status 7.5 Not Available [facility] [address], [place], [address], 06/23/2023 15:08:10 06/23/19 24 06/23/2023 urina lysis , dipst ick Protein-Stat us >=9.0 Not Available [facility] [address], [place], [address], 06/23/2023 15:08:10 06/23/19 24 06/23/2023 urina lysis , dipst ick Nitrates-Sta tus negati ve Not Available [facility] [address], [place], [address], 06/23/2023 15:08:10 06/23/19 24 06/23/2023 urina lysis , dipst ick Blood-Status Large Not Available [facility] [address], [place], [address], 06/23/2023 15:08:10 06/23/19 24 06/23/2023 urina lysis , dipst ick Leuko-Status Negati ve Not Available [facility] [address], [place], [address], 06/23/2023 15:08:10 06/23/19 24 06/23/2023 urina lysis , dipst ick Specimen Type Voided Not Available [facility] [address], [place], [address], 06/23/2023 15:08:10 07/04/19 24 07/01/2023 CT, abdom en + pelvi s, w/o contr ast No observ ation record ed. [email or web address] [facility] [address], [place], [address], 09/01/2023 14:40:29 07/18/19 24 07/18/2023 XR, kidne y + urete r + bladd er No observ ation record ed. [email or web address] [facility] [address], [place], [address], 07/22/2023 15:56:19 Result Notes None recorded. Procedures Surgical History Date Name Laterality Status Provider Name and Address Organization Details Recorded Time Bladder Scan completed Rabia Ferrell [facility], [facility] 06/23/2023 15:08:00 Cystoscopy completed Nicola Ware MD [address], [place], [address], [facility] 12/30/2021 17:11:17 Colonoscopy completed Nicola Ware MD [address], [place], [address], [facility] 12/30/2021 17:11:22 Imaging Results Imaging Date Name Status LastModified by Organiz ation Details LastModified Time 07/01/2023 CT, abdomen + pelvis, w/o contrast completed [address] [facility] [address] [facility] [address], [place], [address], 09/01/2023 14:40:29 07/18/2023 XR, kidney + ureter + bladder completed [address], [place], [address], 07/22/2023 15:56:19 Procedure Notes None recorded. Medical [...] COLONOSCO PY PREP INSTRUCTI ONS RECEIVED FROM [facility] active Not Available Not Available No t Available furosemide 20 mg tablet TAKE 1 TABLET BY MOUTH DAILY active Not Available Not Available No t Available cefuroxime axetil 500 mg tablet active Not Available Not Available No t Available polyethylen e glycol 3350 17 gram/dose oral powder MIX AND DRINK DIRECTED IN [employer] ONS RECEIVED FROM [facility] active Not Available Not Available No [...] Updated DateTime 12/30/2021 177.8 cm 27.4 kg/m2 86877.14 g Nicola Ware MD [address] [place] [address], [address], [facility] 12/30/2021 17:10:12 Date Recorded Body height Body mass index (BMI) Body weight Provider Name and Address Organization Details Last Updated DateTime 03/12/2022 177.8 cm 27.4 kg/m2 44021.14 g Rabia Ferrell [facility] 03/12/2022 13:55:47 Social History Question Answer Notes LastModified by Organizat ion Details LastModified Time Tobacco Smoking Status Never Smoker Nicola Ware MD [address] [place] [address],[address], [address], [facility] 12/30/2021 17:11:00 What Is Your Level [...] Diagnosis/Indication Diagnosis SNOMED-CT Code Diagnosis ICD10 Code [id number] Nicola Ware MD [facility] [address] [place] [address] 12/30/2021 16:01:19 01/01/2022 09:36:50 Increased frequency of urination 092669443 R35.0 Malignant tumor of prostate 975043688 C61 Hydronephrosis 69779072 N13.30 [id number] Aliza Landeros [facility] [address] [place] [address] 03/12/2022 13:13:50 03/15/2022 14:00:47 Increased frequency of urination 289184037 R35.0 Malignant tumor of prostate 152703812 C61 Hydronephrosis 72052769 N13.30 [id number] Nicola Ware MD [facility] [address] [place] [address] 06/23/2023 14:16:52 06/24/2023 08:40:38 Blood in urine 96346912 R31.9 Health Concerns Section Related Observation LastModified by Organization Detai ls LastModified Time None Recorded Concern Status LastModified by Organization Details LastModified Time None Recorded Advance Directives Directive None Recorded Payers Encounter Date Sequence Insurance Name Policy Number Policy Krishnan Covered Member ID Krishnan Member ID Guarantor Name 12/30/2021 1 [employer] (MEDICARE REPLACEMENT/ ADVANTAGE - PPO) [id number] José Miguel Srinivasan Braucher [id number] José Miguel Srinivasan Braucher 03/12/2022 1 [employer] (MEDICARE REPLACEMENT/ ADVANTAGE - PPO) [id number] José Miguel Srinivasan Braucher [id number] José Miguel D Braucher 06/23/2023 1 [employer] (MEDICARE REPLACEMENT/ ADVANTAGE - PPO) [id number] José Miguel Srinivasan Braucher [id number] José Miguel Vega Notes Date Note Type Note Provider Name and Address Organization Details Recorded Time 12/30/2021 text/html HPI Notes: Excer pt from hospital consultation... 81 y.o. year old male who was admitted to [facility] for gross hematuria & [...] of the history. Nicola Ware MD [address] [address] [facility], [place], [address], [facility] 12/30/2021 23:07:10 03/12/2022 text/html HPI Notes: Excer pt from hospital consultation... 81 y.o. year old male who was admitted to [facility] for gross hematuria & [...] some of the history. Nicola Ware MD [address] [place] [address],[address], [place], [address], [facility] 03/12/2022 17:21:47 06/23/2023 text/html HPI Notes: 83 Y male here after calling triage this AM with hematuria/pain with urination. Patient has stent in place, last exchange 02/08/2022. 06/23/23 visit completed by Curry Ware MD [address] [place] [address],[address], [place], [address], [facility] 06/23/2023 16:19:33
--- OUTSIDE RECORDS SUMMARY | 2023-12-23 12:48 | XMS_ITS | Clinical Summary ---
Author Organization [facility] Address [place], [place] [address] Care Team Providers Care Mid Level Game Designer Name Role Phone Cesar Mccollum MD Primary Care Provider Nicola Ware MD Unavailable [phone] Mireya Tan MD Unavailable [phone] 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 [...] type, unspecified whether angina present, unspecified whether [place] or transplanted heart Take 1 Tablet (75 mg) by mouth every morning. 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 RUH=751.87 Bladder mass 02/29/2020 04/30/2020 Hematuria 02/29/2020 03/05/2020 Acute deep vein thrombosis (DVT) 02/29/2020 11/20/2020 S/P coronary angioplasty 11/03/2016 Chest pain 09/15/2016 03/05/2020 Elevated prostate specific antigen (PSA) 10/06/2010 03/05/2020 Hip arthritis 10/06/2010 03/05/2020 Colon polyp 07/15/2010 PATRICE (acute kidney injury) Obstructive uropathy 020 Encounters Date Type Department Care Team Description 12/19/2023 10:00 AM CDT Home Care Visit [address] [address] Doreen Hussein RN SN - HOME VISIT 12/16/2023 11:00 AM CDT Home Care Visit [address] [address] Raffy Carter, PT PT - HOME VISIT 12/13/2023 Orders Only [facility] Scanner 1 scan: (1-Ord) [facility], XR SACRUM COCCYX MIN 2V, 12/13/2023 12/07/2023 Telephone [facility] [address] [place] [address] Cesar Mccollum MD Follow Up 12/05/2023 Home Care Visit [address] [address] Doreen Hussein RN SN - HOME VISIT 12/02/2023 10:30 AM CDT Home Care Visit [address] [address] Raffy Carter, PT PT - REASSESSMENT 12/02/2023 Plan of Care Documentation [address] [address] 11/30/2023 4:00 PM CDT Home Care Visit [address] [address] Doreen Hussein, JAMEL SN - OASIS RECERTIFICATION 11/30/2023 10:30 AM CDT Office Visit [facility] [address] [place] [address] Cesar Mccollum MD Follow Up; Medication Management (Discuss plavix - not currently taking it) 11/30/2023 Travel 11/25/2023 11:00 AM CDT Home Care Visit [address] [address] Raffy Carter, PT PT - INITIAL ASSESSMENT 11/23/2023 8:00 AM CDT Home Care Visit [address] [address] Brittanie Prieto RN SN - HOME VISIT 11/21/2023 3:30 PM CDT Home Care Visit [address] [address] Rigo Heart RN SN - OASIS RESUMPTION OF CARE 11/18/2023 Home Care Visit [address] [address] Rufina Cosby RN CARE COORDINATION 11/14/2023 Home Care Visit [address] [address] Raffy Carter, PT PT - OASIS TRANSFER 11/11/2023 10:30 AM CDT Home Care Visit [address] [address] Raffy Carter, PT PT - HOME VISIT 11/09/2023 9:00 AM CDT Home Care Visit [address] [address] Barbara Fuentes RN SN - HOME VISIT 11/07/2023 Home Care Visit [address] [address] Rufina Cosby RN CARE COORDINATION 11/04/2023 10:30 AM CDT Home Care Visit [address] [address] Raffy Carter, PT PT - HOME VISIT 10/31/2023 11:00 AM CDT Home Care Visit [address] [address] Doreen Hussein, JAMEL SN - HOME VISIT 10/28/2023 10:30 AM CDT Home Care Visit [address] [address] Raffy Carter, PT PT - HOME VISIT 10/25/2023 11:30 AM CDT Home Care Visit [address] [address] Raffy Carter, PT PT - REASSESSMENT 10/24/2023 11:00 AM CDT Home Care Visit [address] [address] Doreen Hussein, JAMEL SN - HOME VISIT 10/24/2023 10:00 AM CDT Home Care Visit [address] [address] Liz Fang JEWELRY APPRAISER CUPOLA LINER HELPER - HOME VISIT 10/21/2023 12:00 PM CDT Home Care Visit [address] [address] Raffy Carter, PT PT - HOME VISIT 10/20/2023 10:35 AM CDT Office Visit [address] [address] Cesar Mccollum MD Follow Up; Concerns (Discuss protocol for hyperbaric treatment at hospital) 10/20/2023 Travel 10/19/2023 9:45 AM CDT Home Care Visit [address] [address] Rigo Heart, JAMEL SN - HOME VISIT 10/18/2023 Home Care Visit [address] [address] Milli Torre, RN CARE COORDINATION 10/17/2023 3:00 PM CDT Home Care Visit [address] [address] Raffy Carter, PT PT - HOME VISIT 10/17/2023 10:00 AM CDT Home Care Visit [address] [address] Liz Fang, JEWELRY APPRAISER CUPOLA LINER HELPER - INITIAL ASSESSMENT 10/12/2023 Telephone [facility] [address] [place] [address] Cesar Mccollum MD Questions 10/11/2023 7:15 AM CDT Home Care Visit [address] [address] Manav Montero, RN SN - WOUND/OSTOMY CHART CONSULT 10/10/2023 4:00 PM CDT Home Care Visit [address] [address] Deonna Oliveira, EDITOR PUBLICATIONS PT - HOME VISIT 10/10/2023 10:30 AM CDT Home Care Visit [address] [address] Milli Torre, RN SN - HOME VISIT 10/08/2023 9:00 AM CDT Home Care Visit [address] [address] Justyna Hernandez, JAMEL SN - INITIAL ASSESSMENT 10/08/2023 Telephone [facility] [address] [place] [address] Cesar Mccollum MD Home Care (BP med parameters) 10/07/2023 11:30 AM CDT Home Care Visit [address] [address] Raffy Carter, PT PT - HOME VISIT 10/07/2023 Home Care Visit [address] [address] Milli Torre, RN CARE COORDINATION 10/06/2023 1:00 PM CDT Ancillary Procedure [facility] - [address] [place] [address] 10/06/2023 Travel 10/04/2023 1:00 PM CDT Office Visit [facility] [address] [place] [address] Souleymane Miller MD Follow Up (Annual Follow up /Coronary artery disease) 10/04/2023 10:15 AM CDT Home Care Visit [address] [address] Manav Rodríguez, PT PT - OASIS START OF CARE 10/04/2023 Telephone [facility] [address] [place] [address] Manav Rodríguez, PT Home Care 10/04/2023 Orders Only [facility] [address] [place] [address] Souleymane Miller MD 1 scan: (1-Ord) NFLD-EKG-10/04/23 10/04/2023 Travel 10/04/2023 Plan of Care Documentation [address] [address] 10/03/2023 Telephone [facility] [address] [place] [address] Cesar Mccollum MD Questions 10/02/2023 Home Care Visit [address] [address] Saul Lawson, RN CARE COORDINATION 10/01/2023 Home Care Visit [address] [address] Saul Lawson, RN CARE COORDINATION 09/29/2023 1:40 PM CDT Office Visit [facility] [address] [place] [address] Cesar Mccollum MD Hospital F/U ([place], urinary problem); Concerns (Bed sore - would like checked) 09/29/2023 Travel 09/23/2023 Telephone [facility] [address] [place] [address] Cesar Mccollum MD Results 09/22/2023 10:30 AM CDT Orders Only [facility] [address] [place] [address] Lab, [facility] 09/22/2023 9:50 AM CDT Nurse/Clinic Staff Only [facility] [address] [place] [address] Dressing Change 09/22/2023 Telephone [facility] [address] [place] [address] Cesar Mccollum MD Results 09/22/2023 Travel from Last 3 Months Immunizations Name [...] Care Team (Late st Contact Info) Description 12/26/2023 4:00 AM CDT Home Care Visit [facility] [address] [address] [place] [address] [place] [address] 01/02/2024 4:00 AM CDT Home Care Visit [facility] [address] [address] Doreen Hussein, RN [facility] [place] [address] 01/09/2024 4:00 AM CDT Home Care Visit [facility] [address] [place] [address] Doreen Hussein, JAMEL [address] [place] [address] 01/16/2024 4:00 AM CDT Home Care Visit [address] [address] Doreen Hussein RN [address] [place] [address] 01/23/2024 4:00 AM CDT Home Care Visit [address] [address] Doreen Hussein RN [address] [place] [address] Health Maintenance Due Date Last Done Comments [...] Completed 4 Medical Devices Implanted Type Area Tube Building Machine Operator Device Identifier Shelf Expiration Date Model / Serial / Lot Stent Uret [id number] Contour - [id number] Implanted:Qty: 1 on 07/18/2023 by Nicola Ware MD at [facility] Right: [facility] 02/27/2026 [id number] / / [id number] Procedures Procedure Name Priority Date/Time Associated Diagnosis Comments SCAN-RADIOLOGY REPORT 12/13/2023 12:00 AM CDT HEMOGLOBIN Routine 11/30/2023 11:45 AM CDT Chronic blood loss anemia ECHO TTE COMPLETE WO CONTRAST DEBBI 10/06/2023 1:34 PM CDT Coronary artery disease, unspecified vessel or lesion type, unspecified whether angina present, unspecified whether [place] or transplanted heart EKG 12 LEAD Routine 10/04/2023 2:15 PM CDT Coronary artery disease, unspecified vessel or lesion type, unspecified whether angina present, unspecified whether [place] or transplanted heart MT READING EKG - NO CHARGE, COMP ONLY Routine 10/04/2023 2:14 PM CDT Coronary artery disease, unspecified vessel or lesion type, unspecified whether angina present, unspecified whether [place] or transplanted heart CBC WITH AUTO DIFFERENTIAL Routine 09/22/2023 10:39 AM CDT Leukocytosis, unspecified type CBC WITH AUTO DIFFERENTIAL Routine 09/22/2023 10:39 AM CDT Leukocytosis, unspecified type from Last 3 Months Results * SCAN-RADIOLOGY REPORT (12/13/2023 12:00 AM CDT) Anatomical Region Laterality Modality Other Scanner OTHER * (ABNORMAL) HEMOGLOBIN (11/30/2023 11:45 AM CDT) HEMOGLOBIN 10.4(L) 13.5 - 17.5 g/dL 11/30/2023 11:50 AM CDT [facility] MCV 92 80 - 100 fL 11/30/2023 11:50 AM CDT [facility] Blood BLOOD SPECIMEN / Unknown Venipuncture / Unknown 11/30/2023 11:45 AM CDT 11/30/2023 11:45 AM CDT Cesar Mccollum MD HEMATOLOGY [facility] [address] [place] [address], [place] [phone] * ECHO TTE COMPLETE WO CONTRAST (10/06/2023 1:34 PM CDT) AORTIC VALVE MEAN PG 10 mmHg EJECTION FRACTION 60 % PEAK TR VELOCITY 2.8 m/s LVEDD 4.2 cm EJECTION FRACTION 65 - 70% Anatomical Region Laterality Modality Ultrasound 10/06/2023 12:5 9 PM CDT Narrative 10/06/2023 2:17 PM CDT ECHOCARDIOGRAM SHYAM SANDS ? Accession#: ?? [id number] : ?1940 83 years Study Date: ?? 10/06/2023 12:59:18 PM Gender: M ?BP: ? 131/72 mmHg Height: 175.26 cm ?BSA: ?1.98 m? ? ? Weight: 81.65 kg ? Tech: ? MBF ? Referring MD: SOULEYMANE MILLER Site: ? [facility] Reading Location: Mobile OP Patient Location: [...] This study was interpreted by an [facility] accredited facility. ??Final ?? Procedure Note Manav Feliciano MD - 10/06/2023 ECHOCARDIOGRAM SHYAM SANDS : 1940 83 years Study Date: 10/06/2023 12:59:18 PM Gender: M BP: 131/72 mmHg Height: 175.26 cm BSA: 1.98 m? ? ? Weight: 81.65 kg Tech: CONSTANZA Referring MD: SOULEYMANE MILLER Site: [facility] Reading Location: Mobile OP Patient Location: [...] This study was interpreted by an [facility] accredited facility. Final Souleymane Miller MD ECHO ORD * EKG 12 LEAD (10/04/2023 2:15 PM CDT) Souleymane Miller MD EKG ORD * MT READING EKG - NO CHARGE, COMP ONLY (10/04/2023 2:14 PM CDT) Souleymane Miller MD PB - PROVIDER READ INGS * (ABNORMAL) CBC WITH AUTO DIFFERENTIAL (09/22/2023 10:39 AM CDT) [facility] WHITE BLOOD COUNT 11.0 4.5 - 11.0 thou/cu mm 09/22/2023 10:46 AM CDT [facility] RED BLOOD COUNT 2.81(L) 4.30 - 5.90 mil/cu mm 09/22/2023 10:46 AM CDT [facility] HEMOGLOBIN 8.0(L) 13.5 - 17.5 g/dL 09/22/2023 10:46 AM CDT [facility] HEMATOCRIT 25.2(L) 37.0 - 53.0 % 09/22/2023 10:46 AM CDT [facility] MCV 90 80 - 100 fL 09/22/2023 10:46 AM CDT [facility] MCH 28.5 26.0 - 34.0 pg 09/22/2023 10:46 AM CDT [facility] MCHC 31.7(L) 32.0 - 36.0 g/dL 09/22/2023 10:46 AM CDT [facility] RDW 17.5(H) 11.5 - 15.5 % 09/22/2023 10:46 AM CDT [facility] PLATELET COUNT 466(H) 140 - 440 thou/cu mm 09/22/2023 10:46 AM CDT [facility] MPV 8.9 6.5 - 11.0 fL 09/22/2023 10:46 AM CDT [facility] % NEUT 86.3 % 09/22/2023 10:46 AM CDT [facility] % LYMPH 6.6 % 09/22/2023 10:46 AM CDT [facility] % MONO 5.8 % 09/22/2023 10:46 AM CDT [facility] % EOS 1.2 % 09/22/2023 10:46 AM CDT [facility] % BASO 0.1 % 09/22/2023 10:46 AM CDT [facility] ABSOLUTE NEUTROPHILS 9.5(H) 1.7 - 7.0 thou/cu mm 09/22/2023 10:46 AM CDT [facility] ABSOLUTE LYMPHOCYTES 0.7(L) 0.9 - 2.9 thou/cu mm 09/22/2023 10:46 AM CDT [facility] ABSOLUTE MONOCYTES 0.6 <0.9 thou/cu mm 09/22/2023 10:46 AM CDT [facility] ABSOLUTE EOSINOPHILS 0.1 <0.5 thou/cu mm 09/22/2023 10:46 AM CDT [facility] ABSOLUTE BASOPHILS 0.0 <0.3 thou/cu mm 09/22/2023 10:46 AM CDT [facility] Blood BLOOD SPECIMEN / Unknown Venipuncture / Unknown 09/22/2023 10:39 AM CDT 09/22/2023 10:43 AM CDT Letty Mera MD HEMATOLOGY [facility] [address] [place] [address], from Last 3 Months Advance Directives Documents on File Type Date Recorded Patient Press Tender Long Goods Expl anation Healthcare Directive 05/15/2021 022 * [...] Code Status Discussion: Reviewed Preferences Care Teams Mid Level Game Designer Relationship Specialty Start Date End Date Cesar Mccollum MD [address] [place] [address] PCP - General Family Practice 03/04/20 Nicola Ware MD [address] [place] [address] Surgery - Urology 03/13/20 Mireya Tan MD [address] [place] [phone] Hematology - Pathology 03/13/20 [facility] [address] [place] [address] 09/29/23
--- OUTSIDE RECORDS SUMMARY | 2023-12-23 12:48 | XMS_ITS | Encounter Summary ---
Author Organization [facility] Address [address] [place] [address] Care Team Providers Care Grain Elevator Clerk Name Role Phone Elsewhere, Pcp Primary Care Provider Unavailabl e Encounter Details Date Type Department Care Team (Late st Contact Info) Description 09/06/2023 Orders Only [facility] in [place], [place] [address] [place] [address] Kira Ferraro, ARUN, C.N.P., M.S.N. [address] [place] [address] Social History Tobacco Use Types Packs/Day Years [...] Procedure visit Department of Urology in [address] [phone] Burke Strauss M.D. [address] [place] [phone] Discharge Disposition: Home or Self Care 01/11/2024 10:00 AM CDT Office Visit Department of Urology in [place] [address] [place] [address] Burke Strauss M.D. 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
== END 2023-12-23 12:44 | disposition home or self-care (01) ==
LOC: WOUND 12:43
PROVIDERS: PCP Family Medicine; Visit Provider Nurse Practitioner Family
DX: N30.41 Irradiation cystitis with hematuria (principal); L89.153 Pressure ulcer of sacral region, stage 3; K62.7 Radiation proctitis; Y84.2 Radiological procedure and radiotherapy as the cause of abnormal reaction of the patient, or of later complication, without mention of misadventure at the time of the procedure
CPT/HCPCS: 15271; G0277; Q4201

== ENCOUNTER 2023-12-30 09:00 | Outpatient (CLI) | payer MEDICARE, OTHER, SELFPAY ==
--- OUTSIDE RECORDS SUMMARY | 2023-12-30 09:02 | XMS_ITS | Referral Summary ---
Author Organization [facility] Address [address] [place] [address] Care Team Providers Care Blocking Machine Operator Second Name Role Phone Elsewhere, Pcp Primary Care Provider Unavailabl e Source Comments Patient records contain information from all sites at [facility]. For routine questions regarding patient records, call [phone] during business hours, M-F 8:00 AM - 5:00 PM Central Time. Record requests for emergency care only can be directed to [phone] at any time.[facility] Encounters Date Type Department Care Team Description 12/13/2023 9:15 AM CDT Nurse Only Department of Urology in [address] [phone] Burke Strauss M.D. Gray, Margaret A, L.P.N. Nurse Visit (Catheter Irrigation ) Discharge Disposition: Home or Self Care 12/08/2023 9:30 AM CDT Office Visit Department of Urology in [address] [phone] Burke Strauss M.D. Retention Urinary Chronic (Primary Dx); Anemia; Anemia In Neoplastic Disease; Manager Print (Current) Anticoagulant Treatment Discharge Disposition: Home or Self Care 12/07/2023 12:19 PM CDT - 12/07/2023 11:59 PM CDT Hospital Encounter Department of Laboratory Medicine in [address] [phone] Burke Strauss M.D. Anemia; Hematuria Gross; Retention Urinary Chronic Discharge Disposition: Home or Self Care 12/07/2023 10:30 AM CDT Office Visit Department of Urology in [address] [phone] Burke Strauss M.D. Hematuria Gross (Primary Dx); Radiation Therapy Cystitis With Hematuria; Anemia; Retention Urinary Chronic Discharge Disposition: Home or Self Care 11/30/2023 6:44 PM CDT - 11/30/2023 8:06 PM CDT Emergency [facility] [address] [place] [phone] Carmen Cherry M.D., M.P.H. Leakage Of Other Urinary Catheter Initial (HCC) (Primary Dx) Discharge Disposition: Home or Self Care 11/14/2023 11:38 PM CDT - 11/17/2023 3:55 PM CDT Hospital Encounter [facility], Fifth Floor [address] [place] [address] Eliceo Guerrier M.D., Ph.D. Sylvie Álvarez M.B.BJonahSJonah, MRashawn Gauthier M.D. Burkland, Carl B, M.D. Hematuria Gross (Primary Dx) Discharge Disposition: [place] [facility] [place]/15/2023 10:40 AM CDT Ancillary Procedure Department of Wound Ostomy 11/14/2023 Documentation Department of Urology in [place] [id number] [place] [address] Sowmya Aviles APRN, C.N.P., M.S.N. 11/14/2023 Intake [facility] 11/14/2023 10:44 AM CDT - 11/14/2023 10:23 PM CDT Emergency [facility] [address] [place] [phone] Sergio Raza M.D. Hematuria (Primary Dx); Malfunction Mechanical Urethral Catheter Initial (HCC) Discharge Disposition: [facility] 11/10/2023 Clinical Communication Department of Urology in [address] [phone] Burke Strauss M.D. Oncology records request 11/09/2023 Clinical Communication Department of Urology in [address] [phone] Burke Strauss M.D. 11/09/2023 11:00 AM CDT Office Visit Department of Urology in [address] [phone] Burke Strauss M.D. Primary Malignant Neoplasm Of Prostate (HCC) (Primary Dx); Retention Urinary Chronic; Hematuria Gross Discharge Disposition: Home or Self Care 10/27/2023 Clinical Communication Department of Urology in [address] [phone] Burke Strauss M.D. 10/14/2023 Documentation Department of Urology in [place], [place] [address] [place] [phone] Paula Hernandez M.D. Catheter Care Plan 10/14/2023 1:00 PM CDT Procedure visit Department of Urology in [place], [place] [address] [place] [address] Paula Hernandez M.D. Reichmann, Lynne G, R.N. 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 [address] [place] [phone] Discharge Disposition: Home or Self Care 01/11/2024 10:00 AM CDT Office Visit Department of Urology in [place] [address] [place] [address] Burke Strauss M.D. [address] [place] [phone] Discharge Disposition: Home or Self Care Medical Devices Implanted Type Area Air Brush Artist Device Identifier Shelf Expiration Date Model / Serial / Lot Clp Hrzn Ti 6 Clp Lg Orng - [id number] Implanted:Qt y: 1 on 08/15/2023 by Boubacar Brock M.D. at [facility] Hardware e.g. pins/screws /rods Abdomen [employer] [id number] 02/29/[id number] / / [id number] Clp Hrzn Ti 6 Clp Lg Orng - [id number] Implanted:Qt y: 1 on 08/15/2023 by Boubacar Brock M.D. at [facility] Hardware e.g. pins/screws /rods Abdomen [employer] [id number] 02/29/2028414093 / / [id number] Clp Hrzn Ti 6 Clp Md Monty - [id number] Implanted:Qt y: 1 on 08/15/2023 by Boubacar Brock M.D. at [facility] Hardware e.g. pins/screws /rods Abdomen [employer] [id number] 03/13/2028 [id number] / / [id number] 1 Clp Hrzn Ti 6 Clp Monty - [id number] Implanted:Qt y: 1 on 08/15/2023 by Boubacar Brock M.D. at [facility] Hardware e.g. pins/screws /rods Abdomen [employer] [id number] 03/21/2028 [id number] / / [id number] 3 Stnt Uret Inl 6fx24 - [id number] Implanted:Qt y: 1 on 08/15/2023 by Jakob De Paz M.D. at [facility] Ureteral Stent N/A: Ureter C.R.Bard [id number] 11/18/2027 [id number] / / [id number] Procedures Procedure Name Priority Date/Time Associated Diagnosis [...] LAB BLOOD ADD-ON Performing Organization Address City/[facility]/ZIP Co de Phone Number [facility] [address] [place] [address], [facility] [address] [address] * Creatinine with Estimated GFR (12/07/2023 12:25 PM CDT) Creatinine 1.13 0.74 - 1.35 mg/dL 12/07/2023 12:49 PM CDT NPRG Estimated GFR (eGFR) 64 >=60 mL/min/BSA 12/07/2023 12:49 PM CDT NPRG Comment: Estimated GFR calculated using the 2020 CKD_EPI creatinine equation. Blood (Blood, Venous) 12/07/2023 12:25 PM CDT 12/07/2023 12:27 PM CDT Burke Strauss M.D. LAB BLOOD ADD-ON Performing Organization Address City/[facility]/ZIP Co de Phone Number [facility] [address] [place] [address], [facility] [address] [address] * (ABNORMAL) CBC without Differential (11/17/2023 7:24 [...] BLOOD ADD-ON [facility] [place] [address], [facility] [address]TO [facility] [address] [place] [address] * (ABNORMAL) Basic Metabolic Panel (11/17/2023 7:24 [...] D.O. LAB BLOOD ADD-ON Performing Organization Address City/[facility]/ZIP Co de Phone Number [facility] [address] [place] [address] * Glucose, POCT (11/17/2023 6:45 AM CDT) Pathologist [facility] Glucose, POCT, B 107 70 - 140 mg/dL 11/17/2023 6:45 AM CDT MKTO Blood 11/17/2023 6:45 AM CDT 11/17/2023 7:03 AM CDT Generic Rals LAB POCT ORDERABLES- MANUAL Performing Organization Address [facility]/RUST Co de Phone Number [facility] [address] [place] [address], [place] [address] * (ABNORMAL) CBC with Differential, Blood (11/16/2023 [...] Rashawn Vences M.D. LAB BLOOD ADD-ON [facility] [place] [address], [facility] MKTO [facility] [address] [place] [address] * (ABNORMAL) Comprehensive Metabolic Panel (11/16/2023 6:25 [...] Rashawn Vences M.D. LAB BLOOD ADD-ON [facility] [address] [place] [address] [place] [address] * Transfuse Red Blood Cells : (11/15/2023 6:35 PM CDT) Madelyn Cesar D.O. BLOOD TRANSFUSION OR DERABLES * Testing Location (11/15/2023 11:09 AM CDT) Testing Location [facility] DEFAULT 11/15/2023 11:47 AM CDT MKTO Blood 11/15/2023 11:0 9 AM CDT 11/15/2023 11:47 AM CDT Sergio Raza M.D. LAB BLOOD BANK TEST ORDERABLES Performing Organization Address City/[facility]/ZIP Co de Phone Number [facility] [address] [place] [address] * Coccyx-Wound Ostomy Image Exam (11/15/2023 10:40 [...] RAD IMAGI NG PROCEDURES Performing Organization Address City/[facility]/ZIP Co de Phone Number [facility] NA * ECG 12 Lead (11/15/2023 6:47 AM CDT) Ventricular Rate ECG/Min 65 BPM MUSE ND Interval 144 ms MUSE QRSD Interval 76 ms MUSE QT Interval 430 ms MUSE QTC Interval 447 ms MUSE P [place] -7 degrees MUSE R [place] 9 degrees MUSE T Wave [place] 19 degrees MUSE 11/15/2023 6:47 AM CDT [...] to determine due to color interference Specific [place] SEE COMMENT 1.001 - 1.035 11/15/2023 8:03 AM CDT MKTO Comment:Unable to determine due to color interference Urobilinogen SEE COMMENT 0.2 - 1.0 mg/dL 11/15/2023 8:03 AM CDT MKTO Comment:Unable to determine due to color interference Urine (Urine, Midstream) 11/15/2023 6:25 AM CDT 11/15/2023 6:34 AM CDT Sylvie Wright M.D. LAB UBALDO NE ORDERABLES Performing Organization Address [facility]/RUST Co de Phone Number [facility] [address] [place] [address], [facility] MKTO [facility] [address] * (ABNORMAL) Microscopic Automated (11/15/2023 6:25 AM [...] 6:34 AM CDT Sylvie Wright M.D. LAB [place] [address] * Bacterial Culture, Aerobic + Susceptibility, Urine (11/15/2023 6:24 AM CDT) Urine Culture Urogenital microbiota, susceptibilities not performed per laboratory criteria. 11/16/2023 11:36 AM CDT [facility] Urine (Urine, Indwelling Catheter) 11/15/2023 6:24 AM CDT 11/15/2023 9:29 AM CDT Comment:Specimen Source Site : Urine Mark Marmolejo APRN.N.Jay., M.S. LAB MICROBIOLOGY - GENERAL ORDERABLES Performing Organization Address [facility]/[place] [address] * CT Abdomen Pelvis without IV Contrast [...] is unchanged compared with multiple priorexams. Sergio CHOUDHARY CT PROCEDURES * Blood Bank Hold Sample (11/14/2023 11:09 AM CDT) Pathologist [facility] Blood Bank Hold Sample HOLD Confirmed 11/14/2023 11:31 AM CDT NPRG Blood (Blood, Venous) 11/14/2023 11:09 AM CDT 11/14/2023 11:12 AM CDT Sergio Raaz M.D. LAB BLOOD BANK TEST ORDERABLES Performing Organization Address City/[facility]/RUST Co de Phone Number [facility] [address] [place] [address], [facility] NPRG [place] [address] [place] [address] * Type and Screen (with Reflex Antibody [...] BLOOD BANK TEST ORDERABLES Performing Organization Address City/[facility]/RUST Co de Phone Number [facility] [address] [place] [address], [facility] NPRG [address] [address] from Last 3 Months Advance Directives For more information, please contact: [phone] * Full Code (Latest Code Status on [...] Answer Comments Full Code: Discussed Care Teams Blocking Machine Operator Second Relationship Specialty Start Date End Date Elsewhere, Pcp PCP - General Internal Medicine 08/13/23
--- OUTSIDE RECORDS SUMMARY | 2023-12-30 09:02 | XMS_ITS | Clinical Summary ---
Author Organization [facility] Address [address] [place] [address] Care Team Providers Care Director Pharmacy Services Name Role Phone Elsewhere, Pcp Primary Care Provider Unavailabl e Source Comments Patient records contain information from all sites at [facility]. For routine questions regarding patient records, call [phone] during business hours, M-F 8:00 AM - 5:00 PM Central Time. Record requests for emergency care only can be directed to [phone] at any time.[facility] Allergies No known active allergies Medications Medication [...] minutes, take the second dose and call [phone] 11/02/2019 Active tamsulosin (FLOMAX) 0.4 mg 24 [...] teral 11/15/2023 Atherosclerotic Heart Diseas e Of [place] Coronary Artery Without Angina Pectoris 11/15/2023 Overview (11/15/2023): stent placements 2017 Complication Procedure Initial 11/15/2023 Deficiency Iron 11/15/2023 Hyperlipidemia 11/15/2023 Hypertension Essential Primary 11/15/2023 Concrete Finisher Current Use Of Oth er Agents Affecting [...] CDT Nurse Only Department of Urology in [address] [address] Burke Strauss M.D. Gray, Margaret A, L.PNarendra Nurse Visit (Catheter Irrigation ) Discharge Disposition: Home or Self Care 12/08/2023 9:30 AM CDT Office Visit Department of Urology in [address] [address] Burke Strauss M.D. Retention Urinary Chronic (Primary Dx); Anemia; Anemia In Neoplastic Disease; Fdc (Current) Anticoagulant Treatment Discharge Disposition: Home or Self Care 12/07/2023 12:19 PM CDT - 12/07/2023 11:59 PM CDT Hospital Encounter Department of Laboratory Medicine in [address] [address] Burke Strauss M.D. Anemia; Hematuria Gross; Retention Urinary Chronic Discharge Disposition: Home or Self Care 12/07/2023 10:30 AM CDT Office Visit Department of Urology in [address] [address] Burke Strauss M.D. Hematuria Gross (Primary Dx); Radiation Therapy Cystitis With Hematuria; Anemia; Retention Urinary Chronic Discharge Disposition: Home or Self Care 11/30/2023 6:44 PM CDT - 11/30/2023 8:06 PM CDT Emergency [facility] [address] [place] [phone] Carmen Cherry M.D., M.P.H. Leakage Of Other Urinary Catheter Initial (HCC) (Primary Dx) Discharge Disposition: Home or Self Care 11/15/2023 10:40 AM CDT Ancillary Procedure Department of Wound Ostomy 11/14/2023 11:38 PM CDT - 11/17/2023 3:55 PM CDT Hospital Encounter [facility], Fifth Floor [address] [place] [address] Eliceo Guerrier M.D., Ph.D. Sylvie Álvarez M.B.BLoly, MRasahwn Gauthier M.D. Burkland, Carl B, M.D. Hematuria Gross (Primary Dx) Discharge Disposition: Home-Health Care [facility] 11/14/2023 10:44 AM CDT - 11/14/2023 10:23 PM CDT Emergency [facility] [address] [place] [phone] Sergio Raza M.D. Hematuria (Primary Dx); Malfunction Mechanical Urethral Catheter Initial (HCC) Discharge Disposition: [facility] 11/14/2023 Documentation Department of Urology in [place] [address] Sowmya Aviles APRN CJonahNJonahPJonah, M.S.N. 11/14/2023 Intake [facility] 11/10/2023 Clinical Communication Department of Urology in [address] [address] Burke Strauss M.D. Oncology records request 11/09/2023 11:00 AM CDT Office Visit Department of Urology in [address] [address] Burke Strauss M.D. Primary Malignant Neoplasm Of Prostate (HCC) (Primary Dx); Retention Urinary Chronic; Hematuria Gross Discharge Disposition: Home or Self Care 11/09/2023 Clinical Communication Department of Urology in [address] [address] Burke Strauss M.D. 10/27/2023 Clinical Communication Department of Urology in [address] [address] Burke Strauss M.D. 10/14/2023 1:00 PM CDT Procedure visit Department of Urology in [place], [place] [address] [place] [phone] Paula Hernandez M.D. Reichmann, Lynne G, RJonahNJonah Hematuria 10/14/2023 Documentation Department of Urology in [place], [place] [address] [place] [address] Paula Hernandez M.D. Catheter Care Plan from Last 3 Months Social History Tobacco Use Types Packs/Day Years Used Date Smoking Tobacco: Never Smokeless Tobacco: Never Tobacco Cessation:Counseling Given: Not Answered [facility] Utilities Answer Date Recorded In the past 12 months has [employer], gas, oil, or water company threatened to [...] [facility] 11/15/2023 Sex and [...] CDT Procedure visit Department of Urology in [place] [address] [place] [address] Burke Strauss M.D. [address] [place] [phone] Discharge Disposition: Home or Self Care 01/11/2024 10:00 AM CDT Office Visit Department of Urology in [address] [address] Burke Strauss M.D. [address] [place] [phone] Discharge Disposition: Home or Self Care Health [...] Completed 11/14/2023 Medical Devices Implanted Type Area Electronics Parts Sales Representative Device Identifier Shelf Expiration Date Model / Serial / Lot Clp Hrzn Ti 6 Clp Lg Orng - [id number] Implanted:Qt y: 1 on 08/15/2023 by Boubacar Brock M.D. at [facility] Hardware e.g. pins/screws /rods [employer]dom[employer] [id number] 02/29/2028 [id number] / / [id number] Clp Hrzn Ti 6 Clp Lg Orng - [id number] Implanted:Qt y: 1 on 08/15/2023 by Boubacar Brock M.D. at [facility] Hardware e.g. pins/screws /rods Abdomen [employer] [id number] 02/29/2028 [id number] / / [id number] 4 Clp Hrzn Ti 6 Clp Md Monty - [id number] Implanted:Qt y: 1 on 08/15/2023 by Boubacar Brock M.D. at [facility] Hardware e.g. pins/screws /rods Abdomen [employer] [id number] 03/13/2028 [id number] / / [id number] 1 Clp Hrzn Ti 6 Clp Md Monty - [id number] Implanted:Qt y: 1 on 08/15/2023 by Boubacar Brock M.D. at [facility] Hardware e.g. pins/screws /rods Abdomen [employer] [id number] 03/21/2028 [id number] / / [id number] 3 Stnt Uret Inl 6fx24 - [id number] Implanted:Qt y: 1 on 08/15/2023 by Jakob De Paz M.D. at [facility] Ureteral Stent N/A: Ureter [employer] [id number] 11/18/2027 [id number] / / [id number] Procedures Procedure Name Priority Date/Time Associated Diagnosis [...] Burke Strauss M.D. LAB BLOOD ADD-ON [facility] [address] [place] [address], [facility] NPRG [facility] [address] [place] [address] * Creatinine with Estimated GFR (12/07/2023 12:25 PM CDT) Creatinine 1.13 0.74 - 1.35 mg/dL 12/07/2023 12:49 PM CDT NPRG Estimated GFR (eGFR) 64 >=60 mL/min/BSA 12/07/2023 12:49 PM CDT NPRG Comment: Estimated GFR calculated using the 2020 CKD_EPI creatinine equation. Blood (Blood, Venous) 12/07/2023 12:25 PM CDT 12/07/2023 12:27 PM CDT Burke Strauss M.D. LAB BLOOD ADD-ON [facility] [address] [place] [address], [facility] NPRG [facility] [address] [place] [address] * (ABNORMAL) CBC without Differential (11/17/2023 7:24 [...] Candelaria Rivas D.O. LAB BLOOD ADD-ON [facility] [address] [place] [address], [facility] MKTO [facility] in [place] [address] [place] [address] * (ABNORMAL) Basic Metabolic Panel (11/17/2023 7:24 [...] Candelaria Rivas D.O. LAB BLOOD ADD-ON [facility] [address] [place] [address], [place] [address] * Glucose, POCT (11/17/2023 6:45 AM CDT) Glucose, POCT, B 107 70 - 140 mg/dL 11/17/2023 6:45 AM CDT MKTO Blood 11/17/2023 6:45 AM CDT 11/17/2023 7:03 AM CDT Generic Rals LAB POCT ORDERABLES- MANUAL [facility] [address] [place] [address] [place] [address], [facility] MKTO [facility] in [place] [address] [place] [address] * (ABNORMAL) CBC with Differential, Blood (11/16/2023 [...] Rashawn Vences M.D. LAB BLOOD ADD-ON [facility] [address] [place] [address], [place] MKTO [facility] in [place] [address] [place] [address] * (ABNORMAL) Comprehensive Metabolic Panel (11/16/2023 6:25 AM CDT) Only the most recent of2 resultswithin the time period is included. Pathologist [facility] Potassium, P 4.5 3.6 - 5.2 mmol/L [...] Rashawn Vences M.D. LAB BLOOD ADD-ON [facility] [address] [place] [address] * Transfuse Red Blood Cells : (11/15/2023 6:35 PM CDT) Madelyn Cesar D.O. BLOOD TRANSFUSION OR DERABLES * Testing Location (11/15/2023 11:09 AM CDT) Testing Location [facility] DEFAULT 11/15/2023 11:47 AM CDT MKTO Blood 11/15/2023 11:0 9 AM CDT 11/15/2023 11:47 AM CDT Sergio Raza M.D. LAB BLOOD BANK TEST ORDERABLES [facility] [address] [place] [address] * Coccyx-Wound Ostomy Image Exam (11/15/2023 10:40 [...] RAD IMAGI NG PROCEDURES Performing Organization Address [facility] de Phone Number IIMS NA * ECG 12 Lead (11/15/2023 6:47 AM CDT) Ventricular Rate ECG/Min 65 BPM MUSE CO Interval 144 ms MUSE QRSD Interval 76 ms MUSE QT Interval 430 ms MUSE QTC Interval 447 ms MUSE P Lowes -7 degrees MUSE R [place] 9 degrees MUSE T Wave [place] 19 degrees MUSE 11/15/2023 6:47 AM CDT [...] M.D. ECG ORD ERABLES Performing Organization Address [facility] de Phone Number MUSE [...] to determine due to color interference Specific [place] SEE COMMENT 1.001 - 1.035 11/15/2023 8:03 AM CDT MKTO Comment:Unable to determine due to color interference Urobilinogen SEE COMMENT 0.2 - 1.0 mg/dL 11/15/2023 8:03 AM CDT MKTO Comment:Unable to determine due to color interference Urine (Urine, Midstream) 11/15/2023 6:25 AM CDT 11/15/2023 6:34 AM CDT Sylvie Wright M.D. LAB URI NE ORDERABLES [facility] [place] [address], [facility] in [place] [address] [place] [address] * (ABNORMAL) Microscopic Automated (11/15/2023 6:25 AM [...] LAB URI NE ORDERABLES Performing Organization Address [facility] Co de Phone Number [facility] [address] [place] [address] * Bacterial Culture, Aerobic + Susceptibility, Urine (11/15/2023 6:24 AM CDT) Urine Culture Urogenital microbiota, susceptibilities not performed per laboratory criteria. 11/16/2023 11:36 AM CDT MKTO Urine (Urine, Indwelling Catheter) 11/15/2023 6:24 AM CDT 11/15/2023 9:29 AM CDT Comment:Specimen Source Site : Urine Estrella Marmolejo APRNN.P., M.S. LAB MICROBIOLOGY - GENERAL ORDERABLES Performing Organization Address City/[facility] Co de Phone Number [facility] [address] [place] [address] * CT Abdomen Pelvis without IV Contrast [...] M.D. LAB BLOOD BANK TEST ORDERABLES [facility] [address] [place] [address], [facility] NPRG [facility] [address] [place] [address] * Type and Screen (with Reflex Antibody [...] Raza M.D. LAB BLOOD BANK TEST ORDERABLES [facility] [address] [place] [address], [place] NPRG [facility] [address] [place] [address] from Last 3 Months Advance Directives For more information, please contact: [phone] * Full Code (Latest Code Status on [...] Answer Comments Full Code: Discussed Care Teams Director Pharmacy Services Relationship Specialty Start Date End Date Elsewhere, Pcp PCP - General Internal Medicine 08/13/23
--- OUTSIDE RECORDS SUMMARY | 2023-12-30 09:02 | XMS_ITS | Clinical Summary ---
Author Organization [place] Address [address] [place] [address] Care Team Providers Care Product Technology Scientist Name Role Phone Cesar Mccollum Primary Care Provider [phone] Allergies No known active allergies Medications Medication [...] this topic Medical Devices Implanted Type Area Mobile Equipment Mechanic Device Identifier Shelf Expiration Date Model / Serial / Lot Stent Ureteral Polaris Ultra [id number] - [id number] Implanted:Qty : 1 on 02/08/2022 by Nciola Ware MD at [facility] Stent Right: Ureter [employer] [id number] 10/08/2024 [id number] Explanted Type Area Mobile Equipment Mechanic Device Identifier Shelf Expiration Date Model / Serial / Lot Stent Came Out Of The Right Ureter Explanted:Qty: 1 on 02/08/2022 by Nicola Ware MD at [facility] Right: Urethra Advance Directives For more information, please contact: [phone] Documents on File Type Date Recorded Patient Colleter Expl anation Advance Directives and Living Will 02/17/2022 Health Care Directiv e 05/15/2021 Healthcare Agents on File Name Relationship Healthcare Agent Relationship Communication Mindy Waterman Daughter Co-First Alterna te Health Care Agent Meera Vega Spouse Health Care Agent [id number] (Home) Favio Vega Son Co-First Altern ate Health Care Agent Tereso Vega Son Co-First Alterna te Health Care Agent Care Teams Product Technology Scientist Relationship Specialty Start Date End Date Cesar Mccollum [address] [place] [address] PCP - General Family Medicine 11/22/22
--- OUTSIDE RECORDS SUMMARY | 2023-12-30 09:02 | XMS_ITS | Encounter Summary ---
Author Organization [facility] Address [address] [place] [address] Care Team Providers Care Tap Grinder Name Role Phone Elsewhere, Pcp Primary Care Provider Unavailabl e Encounter Details Date Type Department Care Team (Latest Contact Info) Description 12/07/2023 12:19 PM CDT - 12/07/2023 11:59 PM CDT Hospital Encounter Department of Laboratory Medicine in [place], [place] [address] [place] [phone] Burke Strauss M.D. [facility] [place] [phone] Anemia; Hematuria Gross; Retention Urinary Chronic Discharge [...] have [facility] place [facility] 11/15/2023 Sex and [...] CDT Procedure visit Department of Urology in [address] [address] Burke Strauss M.D. [address] [place] [address] Discharge Disposition: Home or Self Care 01/11/2024 10:00 AM CDT Office Visit Department of Urology in [place] [address] [place] [address] Burke Strauss M.D. [address] [place] [phone] Discharge Disposition: Home or Self Care documented [...] Organization Address City/[facility]/ZIP Co de Phone Number [facility] [address] [place] [address], [place] NPRG [place] [address] [place] [address] * (ABNORMAL) Hemoglobin (12/07/2023 12:25 PM CDT) Hemoglobin 9.2(L) 13.2 - 16.6 g/dL 12/07/2023 12:33 PM CDT NPRG Blood (Blood, Venous) 12/07/2023 12:25 PM CDT 12/07/2023 12:27 PM CDT Burke Strauss M.D. LAB BLOOD ADD-ON [facility] [address] [place] [address], [place] [address] [address] [place] [address] documented in this encounter Visit Diagnoses Diagnosis Anemia Hematuria Gross Retention Urinary Chronic documented in this encounter Care Teams Tap Grinder Relationship Specialty Start Date End Date Elsewhere, Pcp PCP - General Internal Medicine 08/13/23 documented as of this encounter
--- OUTSIDE RECORDS SUMMARY | 2023-12-30 09:02 | XMS_ITS ---
Author Organization [facility] Address [address] [place] [address] Care Team Providers Care Final Inspector Paper Name Role Phone Unavailable Unavailable Unavailable Surgery Details Not on file Complications Check Surgery Details section. Procedure Estimated Blood Loss Check Surgery Details section. Procedure Findings Check Surgery Details section. Procedure Specimens Taken Check Surgery Details section.
--- OUTSIDE RECORDS SUMMARY | 2023-12-30 09:02 | XMS_ITS | Referral Summary ---
Author Organization [place] Address [address] [place] [address] Care Team Providers Care Microbiology Manager Name Role Phone Cesar Mccollum Primary Care Provider [phone] Allergies No known active allergies Medications Medication [...] on file Medical Devices Implanted Type Area Advertising Internship Device Identifier Shelf Expiration Date Model / Serial / Lot Stent Ureteral Polaris Ultra [id number] - [id number] Implanted:Qty : 1 on 02/08/2022 by Nicola Ware MD at [facility] Stent Right: Ureter [employer] [id number] 10/08/2024 [id number] Explanted Type Area Advertising Internship Device Identifier Shelf Expiration Date Model / Serial / Lot Stent Came Out Of The Right Ureter Explanted:Qty: 1 on 02/08/2022 by Nicola Ware MD at [facility] Right: Urethra Advance Directives For more information, please contact: [phone] Documents on File Type Date Recorded Patient Platen Grinder Expl anation Advance Directives and Living Will 02/17/2022 Health Care Directiv e 05/15/2021 Healthcare Agents on File Name Relationship Healthcare Agent Relationship Communication Mindy Waterman Daughter Co-First Alterna te Health Care Agent Meera Vega Spouse Health Care Agent [id number] (Home) Favio Vega Son Co-First Altern ate Health Care Agent Tereso Vega Son Co-First Alterna te Health Care Agent Care Teams Microbiology Manager Relationship Specialty Start Date End Date Cesar Mccollum [address] [place] [address] PCP - General Family Medicine 11/22/22
--- OUTSIDE RECORDS SUMMARY | 2023-12-30 09:02 | XMS_ITS | Encounter Summary ---
Author Organization [facility] Address [address] [place] [address] Care Team Providers Care Tax Form Preparer Name Role Phone Elsewhere, Pcp Primary Care Provider Unavailabl e Reason for Referral * Outpatient (Routine) - Authorized Specialty Diagnoses / Procedures Referred By Leyla rosenthal Referred To Contact Urology Wili Sosa M.D. [address] [place] [phone] [facility] Referral ID Status Reason Start Date Expiration Date V isits Requested Visits Authorized [id number] Authorized 12/14/2023 06/14/2025 1 1 Reason for Visit * Reason Comments Nurse Visit Catheter Irrigation * Outpatient (Routine) - Closed Specialty Diagnoses / Procedures Referred By Leyla rosenthal Referred To Contact Urology Diagnoses Retention Urinary Chronic Wili Sosa M.D. [address] [place] [phone] [facility] Referral ID Status Reason Start Date Expiration Date Visits Re quested Visits Authorized [id number] Closed 12/08/2023 06/08/2025 1 1 Encounter Details Date Type Department Care Team (Late st Contact Info) Description 12/13/2023 9:15 AM CDT Nurse Only Department of Urology in [place], [place] [address] [place] [phone] Wili Sosa M.D. [address] [place] [address] Latonia Dumont L.P.N. Nurse Visit (Catheter Irrigation ) Discharge Disposition: Home or Self Care Social History Tobacco Use Types Packs/Day Years Used Date Smoking Tobacco: Never Smokeless Tobacco: Never [facility] [employer] Answer Date Recorded In the past 12 months has e [employer], gas, oil, or water [employer] threatened to shut off services in [...] [facility] 11/15/2023 Sex and Gender [...] Procedure visit Department of Urology in [address] [address] Wili Sosa M.D. [address] [place] [phone] Discharge Disposition: Home or Self Care 01/11/2024 10:00 AM CDT Office Visit Department of Urology in [address] [address] Wili Sosa M.D. [address] [place] [phone] Discharge Disposition: Home or Self Care Scheduled Referrals Name Type Priority Associated Diagnoses Orde r Schedule Urology office visit (clinic) General Outpatient Referral Routine Expected: 01/11/2024 (Approximate), Expires: 03/14/2025 documented as of this encounter Visit Diagnoses Diagnosis Retention Urinary Chronic documented in this encounter Care Teams Tax Form Preparer Relationship Specialty Start Date End Date Elsewhere, Pcp PCP - General Internal Medicine 08/13/23 documented as of this encounter
--- OUTSIDE RECORDS SUMMARY | 2023-12-30 09:02 | XMS_ITS ---
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[place] Coronary Artery Without Angina Pectoris 11/15/2023 Overview (11/15/2023): stent placements 2017 Complication Procedure Initial 11/15/2023 Deficiency Iron 11/15/2023 Hyperlipidemia 11/15/2023 Hypertension Essential Primary 11/15/2023 University [employer] Rep Current Use Of Oth er Agents Affecting Estrogen Receptors And Estrogen Levels 11/15/2023 Presence Of Other Vascular Implants And Grafts 0 11/15/2023 Other Specified Disorders Of Bladder 11/15/2023 Other Retention Of Urine 11/15/2023 PreDiabetes 11/15/2023 Presence Of Urogenital Implants 11/15/2023 Unspecified Complication Of Genitourinary Prosthetic Device Implant And Graft Initial 11/15/2023 Inferior Vena Cava Filter 11/15/2023 [employer] Rep (Current) Anticoagulant Treatment 09/2023 Presence Of Other [...] On Elapsed Days Session Dose Total Dose [id number] 04/28/2020 32 300 cGy 6,000 cGy Lifetime Dose Tracking * Chemical Lifetime Dose Automatic Entry Manual Entr y Radiation 20.4 mGy 20.4 mGy 0 mGy Fluoro Time 2.005 minutes 2.005 minutes 0 minutes DAP (uGy-m2) 479.6 uGy-m2 479.6 uGy-m2 0 uGy-m2 Resolved Problems Problem Noted Date Diagnosed Date Resolved Date Hematuria Gross 08/31/2023 11/17/2023
--- OUTSIDE RECORDS SUMMARY | 2023-12-30 09:02 | XMS_ITS | Encounter Summary ---
Author Organization [facility] Address [address] [place] [address] Care Team Providers Care Graining Machine Operator Name Role Phone Elsewhere, Pcp Primary Care Provider Unavailabl e Reason for Referral * Outpatient (Routine) - Closed Specialty Diagnoses / Procedures Referred By Leyla rosenthal Referred To Contact Urology Diagnoses Retention Urinary Chronic Burke Strauss M.D. [address] [place] [phone] [facility] Referral ID Status Reason Start Date Expiration Date Visits Re quested Visits Authorized [id number] Closed 12/08/2023 06/08/2025 1 1 Reason for Visit * Reason Comments Follow-up Irrigation of cathet er * Outpatient (Routine) - Closed Specialty Diagnoses / Procedures Referred By Leyla rosenthal Referred To Contact Urology Burke Strauss M.D. [address] [place] [phone] [facility] Referral ID Status Reason Start Date Expiration Date Visits Re quested Visits Authorized [id number] Closed 12/07/2023 06/07/2025 1 1 Encounter Details Date Type Department Care Team (Latest Contact Info) Description 12/08/2023 9:30 AM CDT Office Visit Department of Urology in [place], [place] [address] [place] [phone] Burke Strauss M.D. [address] [place] [phone] Retention Urinary Chronic (Primary Dx); Anemia; Anemia In Neoplastic Disease; Prison (Current) Anticoagulant Treatment Discharge Disposition: Home or Self Care Social History Tobacco Use Types Packs/Day Years Used Date Smoking Tobacco: Never Smokeless Tobacco: Never [facility] Utilities Answer Date Recorded In the past 12 months has [facility] [employer], gas, oil, or water [employer] threatened to shut off services in your [...] 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 Bureau Director (Current) Anticoagulant Treatment Orders Placed This Encounter [...] Procedure visit Department of Urology in [address] [phone] Burke Strauss M.D. [address] [place] [phone] Discharge Disposition: Home or Self Care 01/11/2024 10:00 AM CDT Office Visit Department of Urology in [address] [address] Burke Strauss M.D. 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
--- OUTSIDE RECORDS SUMMARY | 2023-12-30 09:03 | XMS_ITS | Encounter Summary ---
Author Organization [facility] Address [address] [place] [address] Care Team Providers Care Ventilating Equipment Installer Name Role Phone Elsewhere, Pcp Primary Care Provider Unavailabl e Encounter Details Date Type Department Care Team (Late st Contact Info) Description 11/09/2023 Clinical Communication Department of Urology in [place], [place] [address] [place] [address] Burke Strauss M.D. [address] [place] [phone] Social History Tobacco Use Types Packs/Day Years [...] [facility] place to live 11/15/2023 [...] Procedure visit Department of Urology in [address] [phone] Burke Strauss M.D. [address] [place] [phone] Discharge Disposition: Home or Self Care 01/11/2024 10:00 AM CDT Office Visit Department of Urology in [address] [address] Burke Strauss M.D. [address] [place] [phone] Discharge Disposition: Home or Self Care documented as of this encounter Visit Diagnoses Not on filedocumented in this encounter Care Teams Ventilating Equipment Installer Relationship Specialty Start Date End Date Elsewhere, Pcp PCP - General Internal Medicine 08/13/23 documented as of this encounter
--- OUTSIDE RECORDS SUMMARY | 2023-12-30 09:03 | XMS_ITS | Encounter Summary ---
Author Organization [facility] Address [address] [place] [address] Care Team Providers Care Named Account Executive Name Role Phone Elsewhere, Pcp Primary Care Provider Unavailabl e Encounter Details Date Type Department Care Team (Late st Contact Info) Description 10/27/2023 Clinical Communication Department of Urology in [place], [place] [address] [place] [phone] Burke Strauss M.D. [address] [place] [address] Social History Tobacco Use Types Packs/Day Years Used Date Smoking Tobacco: Never Smokeless Tobacco: Never [facility] Utilities Answer Date Recorded In the past 12 months has e electric, gas, oil, or water [employer] threatened to shut off services in your [...] 2:15 PM CDT Patient follows urology in [place] but would like to transfer his care to [place] as it is closer to home. It looks like for Hematuria. Is this patient ok to see you? He has a catheter in and will need cath changes going forward. documented in this encounter Plan of Treatment Upcoming Encounters Date Type Department Care Team (Latest Contact Info) Description 01/11/2024 9:00 AM CDT Procedure visit Department of Urology in [place] [address] [place] [address] Burke Strauss M.D. [address] [place] [phone] Discharge Disposition: Home or Self Care 01/11/2024 10:00 AM CDT Office Visit Department of Urology in [address] [address] Burke Strauss M.D. [address] [place] [phone] Discharge Disposition: Home or Self Care documented as of this encounter Visit Diagnoses Not on filedocumented in this encounter Care Teams Named Account Executive Relationship Specialty Start Date End Date Elsewhere, Pcp PCP - General Internal Medicine 08/13/23 documented as of this encounter
--- OUTSIDE RECORDS SUMMARY | 2023-12-30 09:03 | XMS_ITS | Encounter Summary ---
Author Organization [facility] Address [address] [place] [address] Care Team Providers Care Search Optimization Analyst Name Role Phone Elsewhere, Pcp Primary Care Provider Unavailabl e Encounter Details Date Type Department Care Team (Late st Contact Info) Description 09/27/2023 Clinical Communication Department of Urology in [place], [place] [address] [place] [phone] Paula Hernandez M.D. [address] [place] [address] Social History Tobacco Use Types Packs/Day Years Used Date Smoking Tobacco: Never Smokeless Tobacco: Never [facility] Utilities Answer Date Recorded In the past [address] [facility] [employer], gas, oil, or water [employer] threatened to shut off services in your [...] CDT Procedure visit Department of Urology in [address] [phone] Burke Strauss M.D. [address] [place] [phone] Discharge Disposition: Home or Self Care 01/11/2024 10:00 AM CDT Office Visit Department of Urology in [place], [place] [address] [place] [address] Burke Strauss M.D. [address] [place] [phone] Discharge Disposition: Home or Self Care documented as of this encounter Visit Diagnoses Not on filedocumented in this encounter Care Teams Search Optimization Analyst Relationship Specialty Start Date End Date Elsewhere, Pcp PCP - General Internal Medicine 08/13/23 documented as of this encounter
--- OUTSIDE RECORDS SUMMARY | 2023-12-30 09:03 | XMS_ITS | Encounter Summary ---
Author Organization [facility] Address [address] [place] [address] Care Team Providers Care Licensed Massage Practitioner Name Role Phone Elsewhere, Pcp Primary Care Provider Unavailabl e Reason for Visit * Reason Comments Urinary Retention * Outpatient (Routine) - Closed Specialty Diagnoses / Procedures Referred By Contaraceli t Referred To Contact Diagnoses Hematuria Procedures URO Urethral cath change (UCC) Paula Hernandez M.D. [address] [place] [phone] [facility] Referral ID Status Reason Start Date Expiration Date Visits Re quested Visits Authorized [id number] Closed 09/15/2023 09/14/2024 1 1 Encounter Details Date Type Department Care Team (Late st Contact Info) Description 10/14/2023 1:00 PM CDT Procedure visit Department of Urology in [place], [place] [address] [place] [phone] Paula Hernandez M.D. [address] [place] [phone] Khadra Miller R.N. [address] [place] [phone] Hematuria Social History Tobacco Use Types Packs/Day [...] [facility] 09/09/2023 Sex and [...] Procedure visit Department of Urology in [address] [phone] Burke Strauss M.D. [address] [place] [phone] Discharge Disposition: Home or Self Care 01/11/2024 10:00 AM CDT Office Visit Department of Urology in [address] [phone] Burke Strauss M.D. [address] [place] [phone] Discharge Disposition: Home or Self Care documented as of this encounter Visit Diagnoses Diagnosis Hematuria documented in this encounter Care Teams Licensed Massage Practitioner Relationship Specialty Start Date End Date Elsewhere, Pcp PCP - General Internal Medicine 08/13/23 documented as of this encounter
--- OUTSIDE RECORDS SUMMARY | 2023-12-30 09:03 | XMS_ITS | Encounter Summary ---
Author Organization [facility] Address [address] [place] [address] Care Team Providers Care Dumpster Driver Name Role Phone Elsewhere, Pcp Primary Care Provider Unavailabl e Reason for Visit * Reason Comments Urinary Catheter Change Pt reports leaki ng from part of three way catheter, believes he may have nicked it with a scissors. Encounter Details Date Type Department Care Team (Late st Contact Info) Description 11/30/2023 6:44 PM CDT - 11/30/2023 8:06 PM CDT Emergency [facility] [address] [place] [phone] Carmen Cherry M.D., M.P.H. [address] [place] [phone] Leakage Of Other Urinary Catheter Initial (HCC) [...] your living situation today? I have a [facility] place to live 11/15/2023 Sex and [...] Everywhere. * Indwelling Urinary Catheter Care Adult [id number] (Greenlandic) documented in this encounter Medications at [...] CDT Procedure visit Department of Urology in [address] [phone] Burke Strauss M.D. [address] [place] [phone] Discharge Disposition: Home or Self Care 01/11/2024 10:00 AM CDT Office Visit Department of Urology in [address] [phone] Burke Strauss M.D. [address] [place] [phone] Discharge Disposition: Home or Self Care documented [...] (Due) documented in this encounter Care Teams Dumpster Driver Relationship Specialty Start Date End Date Elsewhere, Pcp PCP - General Internal Medicine 08/13/23 documented as of this encounter
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
--- OUTSIDE RECORDS SUMMARY | 2023-12-30 09:03 | XMS_ITS | Encounter Summary ---
Author Organization [facility] Address [address] [place] [address] Care Team Providers Care Rim Roller Operator Name Role Phone Elsewhere, Pcp Primary Care Provider Unavailabl e Reason for Visit * Reason Comments Catheter Care Plan Encounter Details Date Type Department Care Team (Late st Contact Info) Description 10/14/2023 Documentation Department of Urology in [place], [place] [address] [place] [address] Paula Hernandez M.D. [address] [place] [address] Catheter Care Plan Social History Tobacco Use [...] Care Plan - Catheter Exchange General Information [facility]/ Patient Name: Kalen Vega Date: 1940 Health Care Provider(s) Medical Provider(s) Cesar Mccollum M.D. Institution: No address on file [place], [place] Urology Provider(s) Chief Urology residents Last seen by Paula Hernandez M.D. Institution: [facility] Treatment Summary Diagnosis Hydronephrosis; hematuria; metastatic prostate cancer; radiation cystitis Treatment Surgery []Yes [x] No Surgery Date(s) Surgical Procedure/Location/Findings Current Treatment Information/Follow-up Care Plan Frequency of Catheter Changes (i.e. every 4 weeks) every 4 weeks Catheter Information Type: Coude red rubber Size:20F Reference #: [id number] Catheter Prescription Expires NA Last seen by [...] CDT Procedure visit Department of Urology in [place] [address] [place] [address] Burke Strauss M.D. [address] [place] [phone] Discharge Disposition: Home or Self Care 01/11/2024 10:00 AM CDT Office Visit Department of Urology in [place] [address] [place] [address] Burke Strauss M.D. [address] [place] [phone] Discharge Disposition: Home or Self Care documented as of this encounter Visit Diagnoses Not on filedocumented in this encounter Care Teams Rim Roller Operator Relationship Specialty Start Date End Date Elsewhere, Pcp PCP - General Internal Medicine 08/13/23 documented as of this encounter
--- OUTSIDE RECORDS SUMMARY | 2023-12-30 09:03 | XMS_ITS | Encounter Summary ---
Author Organization [facility] Address [address] [place] [address] Care Team Providers Care Director Industrial Name Role Phone Elsewhere, Pcp Primary Care Provider Unavailabl e Reason for Referral * Outpatient (Routine) - Authorized Specialty Diagnoses / Procedures Referred By Contac t Referred To Contact Diagnoses Hematuria Gabe Neal M.D. [address] [place] [address] Referral ID Status Reason Start Date Expiration Date V isits Requested Visits Authorized [id number] Authorized 11/17/2023 05/18/2025 1 1 Encounter Details Date Type Department Care Team (Late st Contact Info) Description 11/14/2023 11:38 PM CDT - 11/17/2023 3:55 PM CDT Hospital Encounter [facility], Fifth Floor [address] [place] [address] Eliceo Guerrier M.D., Ph.D. [address] [place] [address] Sylvie Álvarez M.B.B.S., M.D. [address] [place] [address] Rashawn Vences M.D. [address] [place] [address] Gabe Buckley M.D. [address] [place] [address] Smith Peter (Primary Dx) Discharge Disposition: Home-Health Care Svc Social History Tobacco Use Types Packs/Day Years Used Date Smoking Tobacco: Never Smokeless Tobacco: Never [facility] Utilities Answer Date Recorded In the past 12 months has [facility] [employer], gas, oil, or water [employer] threatened to shut off services in [...] have a [facility] place to live 11/15/2023 Sex and [...] DISCHARGE SUMMARY BRIEF OVERVIEW Discharge Hospital: Hospital: [facility] Discharge Provider: Gabe Buckley M.D. Primary Care Providers: Dr. 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 Ceasr Mccollum to discuss restarting OUTPATIENT FOLLOW UP Scheduled Appointments 12/07/2023 10:15 AM [facility]ULT[facility] SPECIALTY NURSE 01 NPNC; URO [...] filter and chronic pressure wounds presented to [facility] 11/14/23 gross hematuria including around his indwelling [...] Dr. Gabe Rivas DO. PGY-1 [facility] Family Medicine Residency [place] Associated attestation - Gabe Buckley M.D. - [...] y.o. male who was admitted to [facility] 11/14/2023 due to Hematuria Gross [R31.0]. Patient was accompanied by son, Kar. This proposal writer finalized arrangements for resumption of home health care services. 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 INTERVENTION This proposal writer sent a service reconnection, including resumption of care order, to resumption of home health care services to [facility] as the fax number matches the fax [...] Muscle Mass: Normal Fluid Accumulation: Absent Reduced Produce Weigher Strength: Not applicable This is in the [...] y.o. male who was admitted to [facility] 11/14/2023 due to Hematuria Gross [R31.0]. Patient was accompanied by daughter (Mindy) and son (Kar). This proposal writer continues to assist in home health care reconnection. 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) Atherosclerotic Heart Disease Of [place] Coronary Artery Without Angina Pectoris Complication Procedure Initial Deficiency Iron Hyperlipidemia Hypertension Essential Primary Concrete Sculptor Current Use Of Other Agents Affecting Estrogen [...] Graft Initial (HCC) Inferior Vena Cava Filter Concrete Sculptor (Current) Anticoagulant Treatment ASSESSMENT / PLAN ASSESSMENT Patient was not formally assessed by this proposal writer. INTERVENTION Patient's daughter, Mindy, provided this proposal writer with contact information for Doreen Javier, nurse healthcare applications analyst for [facility]; [phone]. 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 -start Xarelto 11/16/2023 so response can be monitored while hospitalized -continue TELEPHONE CLAIMS REPRESENTATIVE amlodipine -continue TELEPHONE CLAIMS REPRESENTATIVE rosuvastatin -continue TELEPHONE CLAIMS REPRESENTATIVE metoprolol # Chronic Pressure Wound, Coccyx -continue wound care -offloading as much as possible Non-severe (moderate) Malnutrition (11/15/23) The patient meets the ASPEN Criteria of malnutrition based on: Energy Intake: Less than 75% of estimated energy requirement for greater than or equal to 1 month Interpretation of Weight Loss: 7.5% 3 months Body Fat: Normal Muscle Mass: Normal Fluid Accumulation: Absent Reduced Produce Weigher Strength: Not applicable This is in the [...] M.D. Candelaria Rivas DO. PGY-1 [facility] Family Medicine Residency [place] Associated attestation - Gabe Buckley M.D. - 11/16/2023 6:25 PM CDT I saw and evaluated the patient, participating in the henderson portions of the service. I reviewed the resident/fellow???s note. I agree with the resident/fellow???s findings and plan. 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 [place] Coronary Artery Without Angina Pectoris Deficiency Iron Hyperlipidemia Hypertension Essential Primary Correction Current Use Of Other Agents Affecting Estrogen Receptors And Estrogen Levels Radiation Therapy Proctitis Inferior Vena Cava Filter Concrete Sculptor (Current) Anticoagulant Treatment Resolved Problems: * No [...] Certified Physician in Internal Medicine and Pediatrics [facility] Medicine Service * Candelaria [...] recommendations -monitor CMP for kidney function -continue TELEPHONE CLAIMS REPRESENTATIVE tamsulosin -continue TELEPHONE CLAIMS REPRESENTATIVE enzalutamide -urine culture, per urology # Coronary artery disease without angina pectoris, status post 6 stents # History of DVTs, status post IVC filter # Hyperlipidemia Is on both Plavix and Xarelto at home. Urology recommendations on restarting blood thinners. -may consider restarting one or both on 11/16/2023 so response can be monitored while hospitalized -continue TELEPHONE CLAIMS REPRESENTATIVE amlodipine -continue TELEPHONE CLAIMS REPRESENTATIVE rosuvastatin -continue TELEPHONE CLAIMS REPRESENTATIVE metoprolol # Chronic Pressure Wound, Coccyx -continue wound care -offloading as much as possible Non-severe (moderate) Malnutrition (11/15/23) The patient meets the ASPEN Criteria of malnutrition based on: Energy Intake: Less than 75% of estimated energy requirement for greater than or equal to 1 month Interpretation of Weight Loss: 7.5% 3 months Body Fat: Normal Muscle Mass: Normal Fluid Accumulation: Absent Reduced Produce Weigher Strength: Not applicable This is in the [...] M.D. Candelaria Rivas DO. PGY-1 [facility] Family Medicine Residency [place] Associated attestation - Rashawn Vences M.D. - [...] other issues. He showed up in the [facility] room yesterday with complaints of a [...] and visits for hematuria. Patient presented at [facility] yesterday because of bleeding around his [place] [...] vomiting, no abdominal pain. Patient presented at [facility] where urology was contacted, manual bladder irrigation [...] N/A 08/31/2023 Procedure: CYSTOSCOPY CYSTOGRAM; Surgeon: Mayur Alavrez M.D.; Location: [facility]ST ROMB OR CYSTOSCOPY EVACUATION [...] anemia, hemoglobin now 8.2. Patient presented to [facility] ED because of bleeding around his [place] catheter. At [facility], patient had manual bladder irrigation with normal [...] CDTAssociated Order(s): Dietitian consult (hospital); Dietitian Consult ([facility]) Dietitian Consult (Hospital) Referring Provider: [...] had lost 28lbs during his stay in [place] as he was NPO for12 days then [...] Muscle Mass: Normal Fluid Accumulation: Absent Reduced Produce Weigher Strength: Not applicable This is in the [...] 84.1 kg BMI (Calculated): 26.6 kg/m?? % [place] Body Weight: 111 % IBW Adjusted Body [...] assessment, Discharge Planning, Other (comment) Primary Language: Icelandic [employer] Used: No Sexuality/Pronoun: / Person(s) present [...] Neoplastic Disease #4 Atherosclerotic Heart Disease Of [place] Coronary Artery Without Angina Pectoris #5 Deficiency Iron #6 Hyperlipidemia #7 Hypertension Essential Primary #8 Concrete Sculptor Current Use Of Other Agents Affecting Estrogen Receptors And Estrogen Levels #9 Radiation Therapy Proctitis #10 Inferior Vena Cava Filter #11 Concrete Sculptor (Current) Anticoagulant Treatment Social History Marital Status: [...] Cooperative, Oriented Communication: Talks, Understands speaking, Understands Icelandic Shopping: Appropriate to age/development Medication Management: Independent Housekeeping: Appropriate to age/development Meal Prep: Appropriate to age/development Assistive Devices: Eyeglasses, Hearing aid(s) Agency Name: [facility] Provided: [facility] once weekly for wound care, PT, social work, DarwinRN healthcare applications analyst Transportation: Support from family Baseline Services/Resources Primary care clinic and provider: ELSEWHERE, PCP Anticipated Needs Functional Status: Tasks appropriate to patient's age/development, Transportation use (drive car, use taxi/bus) Assistive Devices: Eyeglasses, Hearing aid(s) Services/Resources: Home health Agency Name: [facility] Provided: [facility] once weekly for wound care, PT, social work, Makenzie healthcare applications analyst Does the patient need discharge transport arranged?: No Anticipated Discharge Destination: Home-Health Care Svc OBJECTIVE Substance Abuse no symptoms Mental Health Mental Health History: Patient reports no mental health history Patient reports no current concerns Mental Health Treatment History No history of Psychiatric Treatment noted Suicide Risk and Safety Risk Assessment: C-SSRS Short Version: [place] Suicide Severity Rating Scale (Do this one [...] a wound clinic the other day. This proposal writer spoke to intake with [facility] however the only information provided is that patient is served by the hospital for special surgery location and receives nursing home, physical therapy, and social work and the fax number for discharge paperwork was provided. Interventions Psychosocial assessment completed. Provided supportive services. Provided education regarding the role of social work. Plan It is anticipated patient will return home with family and resume services through [facility]. Martha Gardiner 11/15/2023 * Jerri Toledo R.N., [place], [facility] - 11/15/2023 10:54 AM CDTAssociated Order(s): IP [...] and visits for hematuria. Patient presented at [facility] yesterday because of bleeding around his [place] [...] vomiting, no abdominal pain. Patient presented at [facility] where urology was contacted, manual bladder irrigation with normal saline was performed, and patient was started on CBI. Patient transferred to [place] for further management. WOUND ASSESSMENT: Wound Type: Pressure Injury IP Pressure Injury Staging: Stage 3 Wound Location: Coccyx Wound Orientation: Mid Wound Tunnel/Induration: Length 1 cm, Width 0.5 cm, and Depth 0.3 cm. Wound Bed Tissue: Red and Granulation tissue 100% Leslee-Wound Skin: Blanchable erythema, Maceration, and [place] PLAN: COCCYX: DAILY 1. Cleanse wound with [...] limit sliding down in chair. Please contact [facility] RNs if you have any question or concerns regarding wound care. Jerri Toledo R.N., LYNNE at [phone] Starla Méndez R.N., CWCN at [phone] * Zachery Tanner, ARUN, C.N.P., M.S. - [...] follows with Medical Oncology Dr. Tan in [place], [place]. Right hydronephrosis and right atrophic kidney [...] 08/30. Currently undergoing outpatient hyperbaric O2 in [facility]. Mr. Vega currently admitted to [facility] in the setting of recurrent gross hematuria. He wasseen in evaluation at [facility] in the setting of concern [...] in comparison to historical imaging. Ultimately [address] catheter was placed and patient was hand irrigated and initiated on CBI.Patient was transferred to [facility] for ongoing management. Urinalysis 11/15/2023 with [...] undergoing outpatient HBO (hyperbaric oxygenation therapy) in [facility]. Recommend to continue HBO in the outpatient [...] hematuria. Outpatient appointment scheduled on 12/07/2023 in [place] with Urology. Could consider discussion about catheter removal/formal voiding trial in the outpatient setting as to limit catheter irritation/potential infection risk contributing to hematuria. Significant pyuria on urinalysis in the setting of his gross hematuria would recommend urine culture. 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 Tan in [place], [place]. Per subjective report today undetectable PSA. [...] discussed with Dr. Valdez. Zachery Tanner APRN MED DIR Associated attestation - Manav Valdez M.D. - [...] Summary: Pt is a direct admit from [facility] ED. He has chronic indwelling catheter, with prostate cancer history. He noticed urine was bloody red. While being seen in [place], 3 waycatheter was inserted and CBI started. [...] filter and chronic pressure wounds presented to [facility] 11/14/23 gross hematuria including around his indwelling [...] Procedure visit Department of Urology in [address] [phone] Burke Strauss M.D. [address] [place] [phone] Discharge Disposition: Home or Self Care 01/11/2024 10:00 AM CDT Office Visit Department of Urology in [address] [address] Burke Strauss M.D. [address] [place] [phone] Discharge Disposition: Home or Self Care Pending Results Name Type Priority Associated Diagnoses Date /Time Prepare Red Blood Cells, 1 Units Blood Bank Routine 11/14/2023 11:09 AM CDT Scheduled Referrals Name Type Priority Associated Diagnoses Orde r Schedule [facility] referral Outpatient Referral Routine Hematuria Gross [...] CDT Candelaria Rivas D.O. LAB BLOOD ADD-ON [facility] [address] [place] [address], [facility] [place] [address] * (ABNORMAL) Basic Metabolic Panel (11/17/2023 7:24 [...] CDT Candelaria Rivas D.O. LAB BLOOD ADD-ON [facility] [address] [place] [address] * Glucose, POCT (11/17/2023 6:45 AM CDT) Glucose, POCT, B 107 70 - 140 mg/dL 11/17/2023 6:45 AM CDT MKTO Blood 11/17/2023 6:45 AM CDT 11/17/2023 7:03 AM CDT Generic Rals LAB POCT ORDERABLES- MANUAL Performing Organization Address City/[facility] Co de Phone Number [facility] [address] [place] [phone] * (ABNORMAL) Hemoglobin (11/16/2023 4:43 PM CDT) Hemoglobin 9.2(L) 13.2 - 16.6 g/dL 11/16/2023 5:13 PM CDT MKTO Blood (Blood, Venous) 11/16/2023 4:43 PM CDT 11/16/2023 5:10 PM CDT Madelyn Cesar D.O. LAB BLOOD ADD-ON [facility] [address] [place] [address] * (ABNORMAL) Comprehensive Metabolic Panel (11/16/2023 6:25 [...] CDT Rashawn Vences M.D. LAB BLOOD ADD-ON [facility] [address] [place] [address], [facility] [address]TO [facility] [place] [address] [place] [address] * (ABNORMAL) CBC with Differential, Blood (11/16/2023 [...] CDT Rashawn Vences M.D. LAB BLOOD ADD-ON [facility] [address] [place] [address], [facility] [address]TO [facility] [place] [address] [place] [address] * Transfuse Red Blood Cells : (11/15/2023 6:35 PM CDT) Madelyn Cesar D.O. BLOOD TRANSFUSION OR DERABLES * Transfuse Red Blood Cells : , 1 Units (11/15/2023 6:35 PM CDT) Madelyn Cesar D.O. BLOOD TRANSFUSION OR DERABLES * (ABNORMAL) Comprehensive Metabolic Panel (11/15/2023 7:31 AM CDT) [facility] Potassium, P 4.2 3.6 - 5.2 [...] Sylvie Wright M.D. LAB BLO OD ADD-ON [facility] [address] [place] [address], [facility] [place] [address] * (ABNORMAL) CBC with Differential, Blood (11/15/2023 [...] Sylvie Wright M.D. LAB BLO OD ADD-ON [facility] [address] [place] [address], [facility] [place] [address] * ECG 12 Lead (11/15/2023 6:47 AM CDT) Ventricular Rate ECG/Min 65 BPM MUSE AK Interval 144 ms MUSE QRSD Interval 76 ms MUSE QT Interval 430 ms MUSE QTC Interval 447 ms MUSE P [place] -7 degrees MUSE R [place] 9 degrees MUSE T Wave [place] 19 degrees MUSE 11/15/2023 6:47 AM CDT [...] M.D. ECG ORD ERABLES Performing Organization Address City/[facility]/ZIP Co de Phone Number MUSE NA [...] LAB URI NE ORDERABLES Performing Organization Address [facility] Co de Phone Number [facility] [address] [place] [address], [facility] [address]TO [facility] [place] [address] [place] [phone] * (ABNORMAL) Urinalysis with Microscopic if Indicated [...] to determine due to color interference Specific [place] SEE COMMENT 1.001 - 1.035 11/15/2023 8:03 AM CDT MKTO Comment:Unable to determine due to color interference Urobilinogen SEE COMMENT 0.2 - 1.0 mg/dL 11/15/2023 8:03 AM CDT MKTO Comment:Unable to determine due to color interference Urine (Urine, Midstream) 11/15/2023 6:25 AM CDT 11/15/2023 6:34 AM CDT Sylvie Wright M.D. LAB URI NE ORDERABLES Performing Organization Address [facility] Co de Phone Number [facility] [address] [place] [address] * Bacterial Culture, Aerobic + Susceptibility, Urine (11/15/2023 6:24 AM CDT) Urine Culture Urogenital microbiota, susceptibilities not performed per laboratory criteria. 11/16/2023 11:36 AM CDT [facility] Urine (Urine, Indwelling Catheter) 11/15/2023 6:24 AM CDT 11/15/2023 9:29 AM CDT Comment:Specimen Source Site : Urine Zachery Tanner APRN, C.N.P., M.S. LAB MICROBIOLOGY - GENERAL ORDERABLES Performing Organization Address [facility] Co de Phone Number [facility] [address] [place] [address] documented in this encounter Visit Diagnoses Diagnosis Hematuria Gross- Primary Hematuria Gross Primary Malignant Neoplasm Of Prostate (HCC) Anemia In Neoplastic Disease Concrete Sculptor Current Use Of Other Agents Affecting Estrogen Receptors And Estrogen Levels Hypertension Essential Primary Hyperlipidemia Deficiency Iron Radiation Therapy Proctitis Atherosclerotic Heart Disease Of [place] Coronary Artery Without Angina Pectoris Inferior Vena Cava Filter Concrete Sculptor (Current) Anticoagulant Treatment documented in this encounter [...] R.N.) documented in this encounter Care Teams Director Industrial Relationship Specialty Start Date End Date Elsewhere, Pcp PCP - General Internal Medicine 08/13/23 documented as of this encounter
--- OUTSIDE RECORDS SUMMARY | 2023-12-30 09:03 | XMS_ITS | Encounter Summary ---
Author Organization [facility] Address [address] [place] [address] Care Team Providers Care Analytical Chemist Name Role Phone Elsewhere, Pcp Primary Care Provider Unavailabl e Reason for Visit * Reason Onset Date Comments Oncology records request 11/10/2023 Encounter Details Date Type Department Care Team (Latest Contact Info) Description 11/10/2023 Clinical Communication Department of Urology in [place], [place] [address] [place] [phone] Burke Strauss M.D. [address] [place] [phone] Oncology records request Social History Tobacco Use Types Packs/Day Years Used Date Smoking Tobacco: Never Smokeless Tobacco: Never [facility] Utilities Answer Date Recorded In the [...] [facility] to live 11/15/2023 Sex and [...] Information was filled out and faxed to [facility], Dr. Mireya Tan clinic per Dr. Strauss. Will wait for these to come through and notify Dr. Strauss for his review. [facility] documented in this encounter Plan of Treatment Upcoming Encounters Date Type Department Care Team (Latest Contact Info) Description 01/11/2024 9:00 AM CDT Procedure visit Department of Urology in [place], [place] [address] [place] [address] Burke Strauss M.D. [address] [place] [phone] Discharge Disposition: Home or Self Care 01/11/2024 10:00 AM CDT Office Visit Department of Urology in [place] [address] [place] [address] Burke Strauss M.D. [address] [place] [phone] Discharge Disposition: Home or Self Care documented as of this encounter Visit Diagnoses Not on filedocumented in this encounter Care Teams Analytical Chemist Relationship Specialty Start Date End Date Elsewhere, Pcp PCP - General Internal Medicine 08/13/23 documented as of this encounter
--- OUTSIDE RECORDS SUMMARY | 2023-12-30 09:03 | XMS_ITS | Encounter Summary ---
Author Organization [facility] Address [address] [place] [address] Care Team Providers Care Economics Analyst Name Role Phone Elsewhere, Pcp Primary Care Provider Unavailabl e Encounter Details Date Type Department Care Team (Late st Contact Info) Description 11/14/2023 Documentation Department of Urology in [place], [place] [address] [place] [address] Sowmya Aviles, ARUN, C.N.P., M.S.N. [address] [place] [phone] Social History Tobacco Use Types Packs/Day Years [...] [facility] place to live 11/15/2023 Sex and Gender Information Value Date Recorded Sex Assigned at Not on file Gender Identity Not on file Sexual Orientation Not on file documented as of this encounter Progress Notes * Sowmya Aviles, ARUN, C.N.P., M.S.N. - 11/14/2023 3:31 PM CDT Contacted via [facility] regarding this patient. Not personally seen or evaluated as patient is in the [facility] Emergency Department. Kalen Vega is a 83 y.o. male with medical comorbidities of acute DVT on Plavix, coronary artery disease status post stent, degenerative joint disease, hyperlipidemia, lymphedema, prediabetes. 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 Tan in [place], [place]. Right hydronephrosis and right atrophic kidney [...] was readmitted to hospital. He presented to [facility] Emergency Department today for evaluation of hematuria and no drainage into urinary catheter. He reports leakage around the catheter of urine and blood clots. A 22 Slovenian three-way catheter was placed, patient was hand [...] CDT Procedure visit Department of Urology in [place], [place] [address] [place] [address] Burke Strauss M.D. [facility] [place] [address] Discharge Disposition: Home or Self Care 01/11/2024 10:00 AM CDT Office Visit Department of Urology in [place] [address] [place] [address] Burke Strauss M.D. [address] [place] [phone] Discharge Disposition: Home or Self Care documented as of this encounter Visit Diagnoses Not on filedocumented in this encounter Care Teams Economics Analyst Relationship Specialty Start Date End Date Elsewhere, Pcp PCP - General Internal Medicine 08/13/23 documented as of this encounter
--- OUTSIDE RECORDS SUMMARY | 2023-12-30 09:03 | XMS_ITS | Encounter Summary ---
Author Organization [facility] Address [address] [place] [address] Care Team Providers Care Marine Service Manager Name Role Phone Elsewhere, Pcp [...] CDT Procedure visit Department of Urology in [place] [address] [place] [address] Burke Strauss M.D. [address] [place] [phone] Discharge Disposition: Home or Self Care 01/11/2024 10:00 AM CDT Office Visit Department of Urology in [place] [address] [place] [address] Burke Strauss M.D. [address] [place] [phone] Discharge Disposition: Home or Self Care documented as of this encounter Visit Diagnoses Not on filedocumented in this encounter Care Teams Marine Service Manager Relationship Specialty Start Date End Date Elsewhere, Pcp PCP - General Internal Medicine 08/13/23 documented as of this encounter
--- OUTSIDE RECORDS SUMMARY | 2023-12-30 09:03 | XMS_ITS | Encounter Summary ---
Author Organization [facility] Address [address] [place] [address] Care Team Providers Care Rougher Machine Operator Name Role Phone Elsewhere, Pcp [...] th e electric, gas, oil, or water [employer] threatened to shut off services in your [...] [facility] place [facility] live 11/15/2023 Sex and Gender Information Value Date Recorded Sex Assigned at Not on file Gender Identity Not on file Sexual Orientation Not on file documented as of this encounter Plan of Treatment Upcoming Encounters Date Type Department Care Team (Latest Contact Info) Description 01/11/2024 9:00 AM CDT Procedure visit Department of Urology in [place] [address] [place] [address] Burke Strauss M.D. [address] [place] [phone] Discharge Disposition: Home or Self Care 01/11/2024 10:00 AM CDT Office Visit Department of Urology in [place] [address] [place] [address] Burke Strauss M.D. [address] [place] [phone] Discharge Disposition: Home or Self Care documented [...] on filedocumented in this encounter Care Teams Rougher Machine Operator Relationship Specialty Start Date End Date Elsewhere, Pcp PCP - General Internal Medicine 08/13/23 documented as of this encounter
--- OUTSIDE RECORDS SUMMARY | 2023-12-30 09:03 | XMS_ITS | Encounter Summary ---
Author Organization [facility] Address [address] [place] [address] Care Team Providers Care Time Signal Wirer Name Role Phone Elsewhere, Pcp Primary Care Provider Unavailabl e Encounter Details Date Type Department Care Team (Late st Contact Info) Description 09/21/2023 Clinical Communication Department of Urology in [place], [place] [address] [place] [address] Paula Hernandez M.D. [address] [place] [address] Social History Tobacco Use Types Packs/Day Years Used Date Smoking Tobacco: Never Smokeless Tobacco: Never [facility] Utilities Answer Date Recorded In the past 12 months has [facility] [place], gas, oil, or water [employer] threatened to shut off services in your [...] 2:37 PM CDT I called the patient's [facility] physician who he saw yesterday, 09/19 in [...] CDT Procedure visit Department of Urology in [place] [address] [place] [address] Burke Strauss M.D. [facility] [place] [address] Discharge Disposition: Home or Self Care 01/11/2024 10:00 AM CDT Office Visit Department of Urology in [place] [address] [place] [address] Burke Strauss M.D. [address] [place] [phone] Discharge Disposition: Home or Self Care documented as of this encounter Visit Diagnoses Not on filedocumented in this encounter Care Teams Time Signal Wirer Relationship Specialty Start Date End Date Elsewhere, Pcp PCP - General Internal Medicine 08/13/23 documented as of this encounter
--- OUTSIDE RECORDS SUMMARY | 2023-12-30 09:03 | XMS_ITS | Encounter Summary ---
Author Organization [facility] Address [address] [place] [address] Care Team Providers Care Inspector Scales Name Role Phone Elsewhere, Pcp Primary Care Provider Unavailabl e Reason for Referral * Outpatient (Routine) - Closed Specialty Diagnoses / Procedures Referred By Leyla rosenthal Referred To Contact Burke Lucero M.D. [address] [place] [phone] [facility] Referral ID Status Reason Start Date Expiration Date Visits Re quested Visits Authorized [id number] Closed 12/07/2023 06/07/2025 1 1 Reason for Visit * Reason Comments Follow-up Discuss jon cathet er * Outpatient (Routine) - Closed Specialty Diagnoses / Procedures Referred By Leyla rosenthal Referred To Contact Burke Lucero M.D. [address] [place] [phone] [facility] Referral ID Status Reason Start Date Expiration Date Visits Re quested Visits Authorized [id number] Closed 11/09/2023 05/10/2025 1 1 Encounter Details Date Type Department Care Team (Late st Contact Info) Description 12/07/2023 10:30 AM CDT Office Visit Department of Urology in [place], [place] [address] [place] [phone] Burke Strauss M.D. [address] [place] [phone] Hematuria Gross (Primary Dx); Radiation Therapy Cystitis With Hematuria; Anemia; Retention Urinary Chronic Discharge Disposition: Home or Self Care Social History Tobacco Use Types Packs/Day Years Used Date Smoking Tobacco: Never Smokeless Tobacco: Never [facility] Utilities Answer Date Recorded In the past 12 months has [facility] [employer], gas, oil, or water [employer] threatened to shut off services in your [...] living situation today? I have a [facility] place to live 11/15/2023 Sex [...] sterile technique anew 22 Fr. (Ref # [id number]) Silicone 3- way catheter placed with assistance [...] was inadvertently cut. He currently has a22 Kiswahili silicone three-way catheter. He will return tomorrow [...] Procedure visit Department of Urology in [address] [address] Burke Strauss M.D. [address] [place] [phone] Discharge Disposition: Home or Self Care 01/11/2024 10:00 AM CDT Office Visit Department of Urology in [address] [address] Burke Strauss M.D. [address] [place] [phone] Discharge Disposition: Home or Self Care Scheduled [...] BLOOD ADD-ON Performing Organization Address City/[facility]/ZIP Co de Phone Number [facility] [address] [place] [address], [facility] NPRG [place] [address] [place] [address] * (ABNORMAL) Hemoglobin (12/07/2023 12:25 PM CDT) Hemoglobin 9.2(L) 13.2 - 16.6 g/dL 12/07/2023 12:33 PM CDT NPRG Blood (Blood, Venous) 12/07/2023 12:25 PM CDT 12/07/2023 12:27 PM CDT Burke Strauss M.D. LAB BLOOD ADD-ON Performing Organization Address City/[facility]/ZIP Co de Phone Number [facility] [address] [place] [address], [place] [facility] [place] [address] [place] [address] documented in this encounter Visit Diagnoses Diagnosis Hematuria Gross- Primary Radiation Therapy Cystitis With Hematuria Anemia Retention Urinary Chronic documented in this encounter Care Teams Inspector Scales Relationship Specialty Start Date End Date Elsewhere, Pcp PCP - General Internal Medicine 08/13/23 documented as of this encounter
--- OUTSIDE RECORDS SUMMARY | 2023-12-30 09:03 | XMS_ITS | Encounter Summary ---
Author Organization [facility] Address [address] [place] [address] Care Team Providers Care Grove Worker Name Role Phone Elsewhere, Pcp Primary Care Provider Unavailabl e Reason for Referral * Outpatient (Routine) - Closed Specialty Diagnoses / Procedures Referred By Leyla t Referred To Contact Urology Burke Strauss M.D. [address] [place] [phone] [facility] Referral ID Status Reason Start Date Expiration Date Visits Re quested Visits Authorized [id number] Closed 11/09/2023 05/10/2025 1 1 * Outpatient (Routine) - Authorized Specialty Diagnoses / Procedures Referred By Contaraceli t Referred To Contact Diagnoses Retention Urinary Chronic Procedures URO Urethral cath change (UCC) Burke Strauss M.D. [address] [place] [phone] [facility] Referral ID Status Reason Start Date Expiration Date V isits Requested Visits Authorized [id number] Authorized 11/09/2023 11/08/2024 15 15 Reason for Visit * Reason Comments Consult Discuss catheter thomas nges * Appointment Request (Routine) - Closed Specialty Diagnoses / Procedures Referred By Leyla rosenthal Referred To Contact Urology Referral ID Status Reason Start Date Expiration Date Visits Re quested Visits Authorized [id number] Closed 10/27/2023 10/26/2024 1 1 Encounter Details Date Type Department Care Team (Late st Contact Info) Description 11/09/2023 11:00 AM CDT Office Visit Department of Urology in [place], [place] [address] [place] [phone] Burke Strauss M.D. [address] [place] [phone] Primary Malignant Neoplasm Of Prostate (HCC) (Primary Dx); Retention Urinary Chronic; Hematuria Gross Discharge Disposition: Home or Self Care Social History Tobacco Use Types Packs/Day Years Used Date Smoking Tobacco: Never Smokeless Tobacco: Never [facility] [employer] Answer Date Recorded In the past 12 months has [facility] electric, gas, oil, or water [employer] threatened to shut off services in [...] ILLNESS Patient presents to establish care from [facility]. He has multiple urologic issues including [...] the past few days. Original plan from [place] was to exchange his left nephrostomy tube in 3 months, due 12/14/2023. He reports getting good output from the left neph tube without hematuria. 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 He has completed 19 of 45 planned treatments and expects to finish that course in early December. Metastatic prostate cancer is being managed by [facility], Dr. Mireya Tan. Release of [...] an antegrade nephrogram through Interventional Radiology in [place] prior to nephrostomy tube removal. documented in this encounter Plan of Treatment Upcoming Encounters Date Type Department Care Team (Latest Contact Info) Description 01/11/2024 9:00 AM CDT Procedure visit Department of Urology in [address] [address] Burke Strauss M.D. [address] [place] [phone] Discharge Disposition: Home or Self Care 01/11/2024 10:00 AM CDT Office Visit Department of Urology in [address] [address] Burke Strauss M.D. [address] [place] [phone] Discharge Disposition: Home or Self Care Scheduled [...] Gross documented in this encounter Care Teams Grove Worker Relationship Specialty Start Date End Date Elsewhere, Pcp PCP - General Internal Medicine 08/13/23 documented as of this encounter
--- OUTSIDE RECORDS SUMMARY | 2023-12-30 09:04 | XMS_ITS | Data Portability ---
Author Organization [facility] Address [address] [place] [address] Care Team Providers Care Roll Picker Name Role Phone MASOUD SAUER Primary Care Provider [phone] Assessment No assessment recorded. Plan of Treatment Reminders Order Date Submit Date Provider Last Modified By Organization Details Last Modified Time Details Appointments None recorded . Lab urinalys is, dipstick 2023 024 [email or web address] [facility], [address] [place], [address], 4 15:08:54 culture, urine 2023 024 [facility], [address], [place], [address], 4 10:11:11 Referral None recorded . Procedures None recorded . Surgeries cystosco py with ureteral stent exchange (SURG) 2021 022 [email or web address] Not available 16:50:47 cystosco py with ureteral stent exchange (SURG) 2021 022 [email or web address] Not available 15:46:30 Imaging None recorded . Medication Orders Myrbetri q 50 mg tablet,e xtended release 2021 022 [place] [id number], [address] [place], [place], [id number], 2 17:50:02 Bactrim DS 800 mg-160 mg tablet 2023 024 [email or web address] [facility][id number], [address] [place], [place], [phone], 16:19:28 Patient TargetsNo targets recorded. Patient InstructionsNo [...] provi sydni revie w. Not Available [facility] [address], [place], [address], 06/25/2023 10:11:11 06/23/19 24 06/23/2023 urina lysis , dipst ick Color-Status Red Not Available [facility] [address], [place], [address], 06/23/2023 15:08:10 06/23/19 24 06/23/2023 urina lysis , dipst ick pH-Status 7.5 Not Available [facility] [address], [place], [address], 06/23/2023 15:08:10 06/23/19 24 06/23/2023 urina lysis , dipst ick Protein-Stat us >=9.0 Not Available [facility] [address], [place], [address], 06/23/2023 15:08:10 06/23/19 24 06/23/2023 urina lysis , dipst ick Nitrates-Sta tus negati ve Not Available [facility] [address], [place], [address], 06/23/2023 15:08:10 06/23/19 24 06/23/2023 urina lysis , dipst ick Blood-Status Large Not Available [facility] [address], [place], [address], 06/23/2023 15:08:10 06/23/19 24 06/23/2023 urina lysis , dipst ick Leuko-Status Negati ve Not Available [facility] [address], [place], [address], 06/23/2023 15:08:10 06/23/19 24 06/23/2023 urina lysis , dipst ick Specimen Type Voided Not Available [facility] [address], [place], [address], 06/23/2023 15:08:10 07/04/19 24 07/01/2023 CT, abdom en + pelvi s, w/o contr ast No observ ation record ed. [email or web address] [facility] [address], [place], [address], 09/01/2023 14:40:29 07/18/19 24 07/18/2023 XR, kidne y + urete r + bladd er No observ ation record ed. [email or web address] [facility] [address], [place], [address], 07/22/2023 15:56:19 Result Notes None recorded. Procedures Surgical History Date Name Laterality Status Provider Name and Address Organization Details Recorded Time Bladder Scan completed Rabia Mariaelena [facility] 06/23/2023 15:08:00 Cystoscopy completed Nicola Ware MD [address] [facility], [place], [address], [facility] 12/30/2021 17:11:17 Colonoscopy completed Nicola Ware MD [address], [place], [address], [facility] 12/30/2021 17:11:22 Imaging Results Imaging Date Name Status LastModified by Organiz ation Details LastModified Time 07/01/2023 CT, abdomen + pelvis, w/o contrast completed [address] [facility] [address] [facility], [place], [address], 09/01/2023 14:40:29 07/18/2023 XR, kidney + ureter + bladder completed [address], [place], [address], 07/22/2023 15:56:19 Procedure Notes None recorded. Medical [...] Updated DateTime 12/30/2021 177.8 cm 27.4 kg/m2 35061.14 g Nicola Ware MD [address] [place] [address], [phone] 12/30/2021 17:10:12 Date Recorded Body height Body mass index (BMI) Body weight Provider Name and Address Organization Details Last Updated DateTime 03/12/2022 177.8 cm 27.4 kg/m2 70602.14 g Rabia Ferrell [facility] 03/12/2022 13:55:47 Social History Question Answer Notes LastModified by Organizat ion Details LastModified Time Tobacco Smoking Status Never Smoker Nicola Ware MD [address] [place] [address],[address], [address], [facility] 12/30/2021 17:11:00 What Is [...] Diagnosis/Indication Diagnosis SNOMED-CT Code Diagnosis ICD10 Code [id number] Nicola Ware MD [facility] [address] [place] [address] 12/30/2021 16:01:19 01/01/2022 09:36:50 Increased frequency of urination 049122513 R35.0 Malignant tumor of prostate 938543100 C61 Hydronephrosis 20338740 N13.30 [id number] Aliza Landeros [facility] [address] [place] [address] 03/12/2022 13:13:50 03/15/2022 14:00:47 Increased frequency of urination 707484058 R35.0 Malignant tumor of prostate 984457960 C61 Hydronephrosis 31656708 N13.30 [id number] Nicola Ware MD [facility] [address] [place] [address] 06/23/2023 14:16:52 06/24/2023 08:40:38 Blood in urine 75168131 R31.9 Health Concerns Section Related Observation LastModified by Organization Detai ls LastModified Time None Recorded Concern Status LastModified by Organization Details LastModified Time None Recorded Advance Directives Directive None Recorded Payers Encounter Date Sequence Insurance Name Policy Number Policy Krishnan Covered Member ID Krishnan Member ID Guarantor Name 12/30/2021 1 MEDICA (MEDICARE REPLACEMENT/ ADVANTAGE - PPO) [id number] José Miguel D Braucher [id number] José Miguel D Braucher 03/12/2022 1 [employer] (MEDICARE REPLACEMENT/ ADVANTAGE - PPO) [id number] José Miguel D Braucher [id number] José Miguel D Braucher 06/23/2023 1 [employer] (MEDICARE REPLACEMENT/ ADVANTAGE - PPO) [id number] José Miguel Srinivasan Braucher [id number] José Miguel D Braucher Notes Date Note Type Note Provider Name and Address Organization Details Recorded Time 12/30/2021 text/html HPI Notes: Excer pt from hospital consultation... 81 y.o. year old male who was admitted to [facility] for gross hematuria & [...] of the history. Nicola Ware MD [address] [facility] [facility] [facility], [place], [address], [facility] 12/30/2021 23:07:10 03/12/2022 text/html HPI Notes: Excer pt from hospital consultation... 81 y.o. year old male who was admitted to [facility] for gross hematuria & [...] some of the history. Nicola Ware MD [address] [place] [address],[address], [place], [address], [facility] 03/12/2022 17:21:47 06/23/2023 text/html HPI Notes: 83 Y male here after calling triage this AM with hematuria/pain with urination. Patient has stent in place, last exchange 02/08/2022. 06/23/23 visit completed by Curry Ware MD [address] [place] [address],[address], [place], [address], [facility] 06/23/2023 16:19:33
--- OUTSIDE RECORDS SUMMARY | 2023-12-30 09:04 | XMS_ITS | Encounter Summary ---
Author Organization [facility] Address [address] [place] [address] Care Team Providers Care Custom Shoemaker Name Role Phone Elsewhere, Pcp Primary Care [...] [facility] 08/13/2023 Sex and Gender Information Value Date Recorded Sex Assigned at Not on file Gender Identity Not on file Sexual Orientation Not on file documented as of this encounter Plan of Treatment Upcoming Encounters Date Type Department Care Team (Latest Contact Info) Description 01/11/2024 9:00 AM CDT Procedure visit Department of Urology in [place] [address] [place] [address] Burke Strauss M.D. [facility] [place] [address] Discharge Disposition: Home or Self Care 01/11/2024 10:00 AM CDT Office Visit Department of Urology in [place] [address] [place] [address] Burke Strauss M.D. [address] [place] [phone] Discharge Disposition: Home or Self Care documented as of this encounter Visit Diagnoses Not on filedocumented in this encounter Additional Health Concerns Infection Onset Date Last Indicated Resolved Time MDR GNB 09/09/2023 09/09/2023 09/16/2023 5:56 AM CDT documented as of this encounter Care Teams Custom Shoemaker Relationship Specialty Start Date End Date Elsewhere, Pcp PCP - General Internal Medicine 08/13/23 documented as of this encounter
--- OUTSIDE RECORDS SUMMARY | 2023-12-30 09:04 | XMS_ITS | Encounter Summary ---
Author Organization [facility] Address [address] [place] [address] Care Team Providers Care Speech Pathology Teacher Name Role Phone Elsewhere, Pcp Primary Care Provider Unavailabl e Reason for Visit * Reason Onset Date Comments follow up questions 09/16/2023 Encounter Details Date Type Department Care Team (Latest Contact Info) Description 09/16/2023 Clinical Communication Department of Urology in [place], [place] [address] [place] [address] Provider, Unknown follow up questions Social History Tobacco Use Types Packs/Day Years Used Date Smoking Tobacco: Never Smokeless Tobacco: Never [employer] Utilities Answer Date Recorded In the past 12 months has [facility] [employer], gas, oil, or water [employer] threatened to shut off services in your [...] of Urology in [place], [place] [address] [place] [address] Burke Strauss M.D. [facility] [place] [address] Discharge Disposition: Home or Self Care 01/11/2024 10:00 AM CDT Office Visit Department of Urology in [place], [place] [address] [place] [address] Burke Strauss M.D. [address] [place] [phone] Discharge Disposition: Home or Self Care documented as of this encounter Visit Diagnoses Not on filedocumented in this encounter Additional Health Concerns Infection Onset Date Last Indicated Resolved Time MDR GNB 09/09/2023 09/09/2023 09/16/2023 5:56 AM CDT documented as of this encounter Care Teams Speech Pathology Teacher Relationship Specialty Start Date End Date Elsewhere, Pcp PCP - General Internal Medicine 08/13/23 documented as of this encounter
--- OUTSIDE RECORDS SUMMARY | 2023-12-30 09:04 | XMS_ITS | Encounter Summary ---
Author Organization [facility] Address [address] [place] [address] Care Team Providers Care [place] Actor Name Role Phone Elsewhere, Pcp Primary Care [...] [facility] live 08/13/2023 Sex and Gender Information Value Date Recorded Sex Assigned at Not on file Gender Identity Not on file Sexual Orientation Not on file documented as of this encounter Plan of Treatment Upcoming Encounters Date Type Department Care Team (Latest Contact Info) Description 01/11/2024 9:00 AM CDT Procedure visit Department of Urology in [place] [address] [place] [address] Burke Strauss M.D. [facility] [place] [address] Discharge Disposition: Home or Self Care 01/11/2024 10:00 AM CDT Office Visit Department of Urology in [place] [address] [place] [address] Burke Strauss M.D. [address] [place] [phone] Discharge Disposition: Home or Self Care documented as of this encounter Visit Diagnoses Not on filedocumented in this encounter Additional Health Concerns Infection Onset Date Last Indicated Resolved Time MDR GNB 09/09/2023 09/09/2023 09/16/2023 5:56 AM CDT documented as of this encounter Care Teams [place] Actor Relationship Specialty Start Date End Date Elsewhere, Pcp PCP - General Internal Medicine 08/13/23 documented as of this encounter
--- OUTSIDE RECORDS SUMMARY | 2023-12-30 09:04 | XMS_ITS | Encounter Summary ---
Author Organization [facility] Address [address] [place] [address] Care Team Providers Care Maintenance Technician 2Nd Shift Name Role Phone Elsewhere, Pcp Primary Care Provider Unavailabl e Encounter Details Date Type Department Care Team (Late st Contact Info) Description 09/06/2023 Orders Only Section of Hyperbaric Medicine in [place], [place] [address] [place] [address] Kira Ferraro, ARUN, C.N.P., M.S.N. [address] [place] [address] Social History Tobacco Use Types Packs/Day Years [...] CDT Procedure visit Department of Urology in [address] [phone] Burke Strauss M.D. [address] [place] [phone] Discharge Disposition: Home or Self Care 01/11/2024 10:00 AM CDT Office Visit Department of Urology in [place] [address] [place] [address] Burke Strauss M.D. [address] [place] [address] Discharge Disposition: Home or Self Care documented as of this encounter Visit Diagnoses Not on filedocumented in this encounter Additional Health Concerns Infection Onset Date Last Indicated Resolved Time MDR GNB 09/09/2023 09/09/2023 09/16/2023 5:56 AM CDT documented as of this encounter Care Teams Maintenance Technician 2Nd Shift Relationship Specialty Start Date End Date Elsewhere, Pcp PCP - General Internal Medicine 08/13/23 documented as of this encounter
--- OUTSIDE RECORDS SUMMARY | 2023-12-30 09:04 | XMS_ITS | Clinical Summary ---
Author Organization [facility] Address [place], [place] [address] Care Team Providers Care Transportation Equipment Painter Name Role Phone Cesar Mccollum MD Primary Care Provider Nicola Ware MD Unavailable [phone] Mireya Tan MD Unavailable [phone] [facility] Unavailable [phone] Allergies No known active allergies Medications Medication [...] iron, carbonyl (Perfect Iron) 25 mg iron tabIndications:Voucher Clerk junior blood loss anemia 1 tablet p.o. 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 AQV=033.87 Bladder mass 02/29/2020 04/30/2020 Hematuria 02/29/2020 03/05/2020 Acute deep vein thrombosis (DVT) 02/29/2020 11/20/2020 S/P coronary angioplasty 11/03/2016 Chest pain 09/15/2016 03/05/2020 Elevated prostate specific antigen (PSA) 10/06/2010 03/05/2020 Hip arthritis 10/06/2010 03/05/2020 Colon polyp 07/15/2010 PATRICE (acute kidney injury) Obstructive uropathy 020 Encounters Date Type Department Care Team Description 12/26/2023 11:30 AM CDT Home Care Visit [address] [address] Doreen Hussein, RN SN - HOME VISIT 12/23/2023 11:00 AM CDT Home Care Visit [address] [address] Raffy Carter, PT PT - DISCIPLINE DISCHARGE 12/19/2023 10:00 AM CDT Home Care Visit [address] [address] Doreen Hussein, JAMEL SN - HOME VISIT 12/16/2023 11:00 AM CDT Home Care Visit [address] [address] Raffy Carter, PT PT - HOME VISIT 12/13/2023 Orders Only [facility] Scanner 1 scan: (1-Ord) [facility], XR SACRUM COCCYX MIN 2V, 12/13/2023 12/07/[address] [address] Cesar Mccollum MD Follow Up 12/05/2023 Home Care Visit [address] [address] Doreen Hussein, JAMEL SN - HOME VISIT 12/02/2023 10:30 AM CDT Home Care Visit [address] [address] Raffy Carter, PT PT - REASSESSMENT 12/02/2023 Plan of Care Documentation [address] [address] 11/30/2023 4:00 PM CDT Home Care Visit [address] [address] Doreen Hussein, JAMEL SN - OASIS RECERTIFICATION 11/30/2023 10:30 AM CDT Office Visit [facility] [address] [place] [address] Cesar Mccollum MD Follow Up; Medication Management (Discuss plavix - not currently taking it) 11/30/2023 Travel 11/25/2023 11:00 AM CDT Home Care Visit [address] [address] Raffy Carter, PT PT - INITIAL ASSESSMENT 11/23/2023 8:00 AM CDT Home Care Visit [address] [address] Brittanie Prieto RN SN - HOME VISIT 11/21/2023 3:30 PM CDT Home Care Visit [address] [address] Rigo Heart RN SN - OASIS RESUMPTION OF CARE 11/18/2023 Home Care Visit [address] [address] Rufina Cosby RN CARE COORDINATION 11/14/2023 Home Care Visit [address] [address] Raffy Carter, PT PT - OASIS TRANSFER 11/11/2023 10:30 AM CDT Home Care Visit [address] [address] Raffy Carter, PT PT - HOME VISIT 11/09/2023 9:00 AM CDT Home Care Visit [address] [address] Barbara Fuentes RN SN - HOME VISIT 11/07/2023 Home Care Visit [address] [address] Rufina Cosby RN CARE COORDINATION 11/04/2023 10:30 AM CDT Home Care Visit [address] [address] Raffy Carter, PT PT - HOME VISIT 10/31/2023 11:00 AM CDT Home Care Visit [address] [address] Doreen Hussein, JAMEL SN - HOME VISIT 10/28/2023 10:30 AM CDT Home Care Visit [address] [address] Raffy Carter, PT PT - HOME VISIT 10/25/2023 11:30 AM CDT Home Care Visit [address] [address] Raffy Carter, PT PT - REASSESSMENT 10/24/2023 11:00 AM CDT Home Care Visit [address] [address] Doreen Hussein, JAMEL SN - HOME VISIT 10/24/2023 10:00 AM CDT Home Care Visit [address] [address] Liz Fang WIRELESS TECHNICIAN LEAD PRINTER - HOME VISIT 10/21/2023 12:00 PM CDT Home Care Visit [address] [address] Raffy Carter, PT PT - HOME VISIT 10/20/2023 10:35 AM CDT Office Visit [address] [address] Cesar Mccollum MD Follow Up; Concerns (Discuss protocol for hyperbaric treatment at hospital) 10/20/2023 Travel 10/19/2023 9:45 AM CDT Home Care Visit [address] [address] Rigo Heart RN SN - HOME VISIT 10/18/2023 Home Care Visit [address] [address] Milli Torre, RN CARE COORDINATION 10/17/2023 3:00 PM CDT Home Care Visit [address] [address] Raffy Carter, PT PT - HOME VISIT 10/17/2023 10:00 AM CDT Home Care Visit [address] [address] Liz Fang, [facility] LEAD PRINTER - INITIAL ASSESSMENT 10/12/2023 Telephone [facility] [address] [place] [address] Cesar Mccollum MD Questions 10/11/2023 7:15 AM CDT Home Care Visit [address] [address] Manav Montero, RN SN - WOUND/OSTOMY CHART CONSULT 10/10/2023 4:00 PM CDT Home Care Visit [address] [address] Deonna Oliveira, DIAMOND WHEEL MOLDER PT - HOME VISIT 10/10/2023 10:30 AM CDT Home Care Visit [address] [address] Milli Torre, RN SN - HOME VISIT 10/08/2023 9:00 AM CDT Home Care Visit [address] [address] Justyna Hernandez, JAMEL SN - INITIAL ASSESSMENT 10/08/2023 Telephone [facility] [address] [place] [address] Cesar Mccollum MD Home Care (BP med parameters) 10/07/2023 11:30 AM CDT Home Care Visit [address] [address] Raffy Carter, PT PT - HOME VISIT 10/07/2023 Home Care Visit [address] [address] Milli Torre, RN CARE COORDINATION 10/06/2023 1:00 PM CDT Ancillary Procedure [facility] [address] [place] [address] 10/06/2023 Travel 10/04/2023 1:00 PM CDT Office Visit [facility] [address] [place] [address] Souleymane Miller MD Follow Up (Annual Follow up /Coronary artery disease) 10/04/2023 10:15 AM CDT Home Care Visit [address] [address] Manav Rodríguez, PT PT - OASIS START OF CARE 10/04/2023 Telephone [facility] [address] [address] Manav Rodríguez, PT Home Care 10/04/2023 Orders Only [facility] [address] [place] [address] Souleymane Miller MD 1 scan: (1-Ord) NFLD-EKG-10/04/23 10/04/2023 Travel 10/04/2023 Plan of Care Documentation [address] [address] 10/03/2023 Telephone [facility] [address] [place] [address] Cesar Mccollum MD Questions 10/02/2023 Home Care Visit [address] [address] Saul Lawson, JAMEL CARE COORDINATION 10/01/2023 Home Care Visit [address] [address] Saul Lawson RN CARE COORDINATION 09/29/2023 1:40 PM CDT Office Visit [facility] [address] [place] [address] Cesar Mccollum MD Hospital F/U ([place], urinary problem); Concerns (Bed sore - would like checked) 09/29/2023 Travel from Last 3 Months Immunizations Name Administration Dates Next Due COVID-19 VACCINE SPIKEVAX (M ODERNA 50MCG/0.5ML) 12YO+ PFS 07/21/2023,03/08/2023 COVID-19 vaccine (Lexpertia.comBio NTech 30mcg/0.3mL) 12YO+ BIVALENT PF, MDV 09/13/2022,01/28/2022 [...] Sign Reading Time Taken Comments Blood Pressure 120/65 12/26/2023 11:47 AM CDT Pulse 67 12/26/2023 11:47 AM CDT Temperature 36.8 ??C (98.2 ??F) 12/26/2023 11:47 AM C DT Respiratory Rate 15 12/23/2023 11:10 AM CDT Oxygen Saturation 95% 12/26/2023 11:47 AM CDT Inhaled Oxygen Concentration - - Weight 80.6 kg (177 lb 9.6 oz) 11/30/2023 10:38 AM CDT Height 177.1 cm (5' 9.72) 07/21/2023 9:05 AM CD T Body Mass Index 25.69 07/21/2023 9:05 AM CDT Plan of Treatment Upcoming Encounters Date Type Department Care Team (Late st Contact Info) Description 01/09/2024 4:00 AM CDT Home Care Visit [facility] [address] [address] Doreen Hussein, RN [address] [place] [address] 01/16/2024 4:00 AM CDT Home Care Visit [facility] [address] [address] Doreen Hussein RN [address] [place] [address] 01/23/2024 4:00 AM CDT Home Care Visit [facility] [address] [address] Doreen Hussein RN [address] [place] [address] Health Maintenance Due Date Last Done Comments Zoster (shingles) series for age 50+ (1 of 2) 1959 RSV vaccine for adults or (1 - 1-dose 60+ series) 1999 COVID-19 vaccine series (2022-24 season) 2023 07/21/2023, [...] Completed 4 Medical Devices Implanted Type Area Conductor Yard Device Identifier Shelf Expiration Date Model / Serial / Lot Stent Uret [id number] Contour - [id number] Implanted:Qty: 1 on 07/18/2023 by Nicola Ware MD at [facility] Right: Ureter [facility] 02/27/2026 [id number] / / [id number] Procedures Procedure Name Priority Date/Time Associated Diagnosis Comments SCAN-RADIOLOGY REPORT 12/13/2023 12:00 AM CDT HEMOGLOBIN Routine 11/30/2023 11:45 AM CDT Chronic blood loss anemia ECHO TTE COMPLETE WO CONTRAST DEBBI 10/06/2023 1:34 PM CDT Coronary artery disease, unspecified vessel or lesion type, unspecified whether angina present, unspecified whether [place] or transplanted heart EKG 12 LEAD Routine 10/04/2023 2:15 PM CDT Coronary artery disease, unspecified vessel or lesion type, unspecified whether angina present, unspecified whether [place] or transplanted heart SC READING EKG - NO CHARGE, COMP ONLY Routine 10/04/2023 2:14 PM CDT Coronary artery disease, unspecified vessel or lesion type, unspecified whether angina present, unspecified whether [place] or transplanted heart from Last 3 Months Results * SCAN-RADIOLOGY REPORT (12/13/2023 12:00 AM CDT) Anatomical Region Laterality Modality Other Scanner OTHER * (ABNORMAL) HEMOGLOBIN (11/30/2023 11:45 AM CDT) HEMOGLOBIN 10.4(L) 13.5 - 17.5 g/dL 11/30/2023 11:50 AM CDT [facility] MCV 92 80 - 100 fL 11/30/2023 11:50 AM CDT [facility] Blood BLOOD SPECIMEN / Unknown Venipuncture / Unknown 11/30/2023 11:45 AM CDT 11/30/2023 11:45 AM CDT Cesar Mccollum MD HEMATOLOGY [facility] [address] [place] [address], * ECHO TTE COMPLETE WO CONTRAST (10/06/2023 1:34 PM CDT) AORTIC VALVE MEAN PG 10 mmHg EJECTION FRACTION 60 % PEAK TR VELOCITY 2.8 m/s LVEDD 4.2 cm EJECTION FRACTION 65 - 70% Anatomical Region Laterality Modality Ultrasound 10/06/2023 12:5 9 PM CDT Narrative 10/06/2023 2:17 PM CDT ECHOCARDIOGRAM SHYAM SANDS ? Accession#: ?? [id number] : ?1940 83 years Study Date: ?? 10/06/2023 12:59:18 PM Gender: M ?BP: ? 131/72 mmHg Height: 175.26 cm ?BSA: ?1.98 m? ? ? Weight: 81.65 kg ? Tech: ? MBF ? Referring MD: SOULEYMANE MILLER Site: ? [facility] Reading Location: Mobile OP Patient Location: Outpatient. [...] . This study was interpreted by an [facility] accredited facility. ??Final ?? Procedure Note Manav Feliciano MD - 10/06/2023 ECHOCARDIOGRAM SHYAM SANDS : 1940 83 years Study Date: 10/06/2023 12:59:18 PM Gender: M BP: 131/72 mmHg Height: 175.26 cm BSA: 1.98 m? ? ? Weight: 81.65 kg Tech: [facility] Referring MD: SOULEYMANE MILLER Site: [facility] Reading Location: [place] [facility] Patient Location: Outpatient. Procedure: 2D, Color [...] . This study was interpreted by an [facility] accredited facility. Final Souleymane Miller MD ECHO ORD * EKG 12 LEAD (10/04/2023 2:15 PM CDT) Souleymane Miller MD EKG ORD * SC READING EKG - NO CHARGE, COMP ONLY (10/04/2023 2:14 PM CDT) Souleymane iMller MD PB - PROVIDER READ INGS from Last 3 Months Advance Directives Documents on File Type Date Recorded Patient Network Communications Engineer Expl anation Healthcare Directive 05/15/2021 022 * [...] Code Status Discussion: Reviewed Preferences Care Teams Transportation Equipment Painter Relationship Specialty Start Date End Date Cesar Mccollum MD [address] [place] [address] PCP - General Family Practice 03/04/20 Nicola Ware MD [address] [place] [phone] Surgery - Urology 03/13/20 Mireya Tan MD [address] [place] [phone] Hematology - Pathology 03/13/20 [facility], [place] [address] [place] [address] 09/29/23
== END 2023-12-30 09:01 | disposition home or self-care (01) ==
LOC: WOUND 09:00
PROVIDERS: PCP Family Medicine; Visit Provider Nurse Practitioner Family
DX: N30.41 Irradiation cystitis with hematuria (principal); L89.153 Pressure ulcer of sacral region, stage 3; K62.7 Radiation proctitis; C61 Malignant neoplasm of prostate; D64.9 Anemia, unspecified; Y84.2 Radiological procedure and radiotherapy as the cause of abnormal reaction of the patient, or of later complication, without mention of misadventure at the time of the procedure
CPT/HCPCS: 15271; G0277; Q4110

== ENCOUNTER 2024-01-06 11:25 | Outpatient (CLI) | payer MEDICARE, OTHER, SELFPAY ==
--- OUTSIDE RECORDS SUMMARY | 2024-01-06 11:28 | XMS_ITS ---
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 11/15/2023 Atherosclerotic Heart Diseas e Of [place] Coronary Artery Without Angina Pectoris 11/15/2023 Overview (11/15/2023): stent placements 2017 Complication Procedure Initial 11/15/2023 Deficiency Iron 11/15/2023 Hyperlipidemia 11/15/2023 Hypertension Essential Primary 11/15/2023 Advertising Vice President Current Use Of Oth er Agents Affecting Estrogen Receptors And Estrogen Levels 11/15/2023 Presence Of Other Vascular Implants And Grafts 0 11/15/2023 Other Specified Disorders Of Bladder 11/15/2023 Other Retention Of Urine 11/15/2023 PreDiabetes 11/15/2023 Presence Of Urogenital Implants 11/15/2023 Unspecified Complication Of Genitourinary Prosthetic Device Implant And Graft Initial 11/15/2023 Inferior Vena Cava Filter 11/15/2023 Advertising Vice President (Current) Anticoagulant Treatment 09/2023 Presence Of Other [...] On Elapsed Days Session Dose Total Dose [id number] 04/28/2020 32 300 cGy 6,000 cGy Lifetime Dose Tracking * Chemical Lifetime Dose Automatic Entry Manual Entr y Radiation 20.4 mGy 20.4 mGy 0 mGy Fluoro Time 2.005 minutes 2.005 minutes 0 minutes DAP (uGy-m2) 479.6 uGy-m2 479.6 uGy-m2 0 uGy-m2 Resolved Problems Problem Noted Date Diagnosed Date Resolved Date Hematuria Gross 08/31/2023 11/17/2023
--- OUTSIDE RECORDS SUMMARY | 2024-01-06 11:28 | XMS_ITS | Referral Summary ---
Author Organization [place] Address [address] [place] [address] Care Team Providers Care Stage Director Name Role Phone Cesar Mccollum Primary Care Provider [phone] Allergies No known active allergies Medications Medication [...] on file Medical Devices Implanted Type Area Check Clerk Device Identifier Shelf Expiration Date Model / Serial / Lot Stent Ureteral Polaris Ultra [id number] - [id number] Implanted:Qty : 1 on 02/08/2022 by Nicola Ware MD at [facility] Stent Right: U[employer]ter [employer] [id number] 10/08/2024 [id number] Explanted Type Area Check Clerk Device Identifier Shelf Expiration Date Model / Serial / Lot Stent Came Out Of The Right Ureter Explanted:Qty: 1 on 02/08/2022 by Nicola Ware MD at [facility] Right: Urethra Advance Directives For more information, please contact: [phone] Documents on File Type Date Recorded Patient Commercial Account Executive Expl anation Advance Directives and Living Will 02/17/2022 Health Care Directiv e 05/15/2021 Healthcare Agents on File Name Relationship Healthcare Agent Relationship Communication Mindy Waterman Daughter Co-First Alterna te Health Care Agent Meera Vega Spouse Health Care Agent [id number] (Home) Favio Vega Son Co-First Altern ate Health Care Agent Tereso Vega Son Co-First Alterna te Health Care Agent Care Teams Stage Director Relationship Specialty Start Date End Date Cesar Mccollum [address] [place] [address] PCP - General Family Medicine 11/22/22
--- OUTSIDE RECORDS SUMMARY | 2024-01-06 11:28 | XMS_ITS | Referral Summary ---
Author Organization [facility] Address [address] [place] [address] Care Team Providers Care Duty Engineer Name Role Phone Elsewhere, Pcp Primary Care Provider Unavailabl e Source Comments Patient records contain information from all sites at [facility]. For routine questions regarding patient records, call [phone] during business hours, M-F 8:00 AM - 5:00 PM Central Time. Record requests for emergency care only can be directed to [phone] at any time.[facility] Encounters Date Type Department Care Team Description 12/13/2023 9:15 AM CDT Nurse Only Department of Urology in [address] [phone] Burke Strauss M.D. Gray, Margaret A, L.P.N. Nurse Visit (Catheter Irrigation ) Discharge Disposition: Home or Self Care 12/08/2023 9:30 AM CDT Office Visit Department of Urology in [address] [phone] Burke Strauss M.D. 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 Anemia; Hematuria Gross; Retention Urinary Chronic Discharge Disposition: Home or Self Care 12/07/2023 10:30 AM CDT Office Visit Department of Urology in [address] [phone] Burke Strauss M.D. Hematuria Gross (Primary Dx); Radiation Therapy Cystitis With Hematuria; Anemia; Retention Urinary Chronic Discharge Disposition: Home or Self Care 11/30/2023 6:44 PM CDT - 11/30/2023 8:06 PM CDT Emergency [facility] [address] [place] [phone] Carmen Cherry M.D., M.P.H. Leakage Of Other Urinary Catheter Initial (HCC) (Primary Dx) Discharge Disposition: Home or Self Care 11/14/2023 11:38 PM CDT - 11/17/2023 3:55 PM CDT Hospital Encounter [facility], [facility], Fifth Floor [address] [place] [address] Eliceo Guerrier M.D., Ph.D. Sylvie Álvarez M.B.BJonahSJonah, MRashawn Gauthier M.D. Burkland, Carl B, M.D. Hematuria Gross (Primary Dx) Discharge Disposition: Home-Health Care [facility] 11/15/2023 10:40 AM CDT Ancillary Procedure Department of Wound Ostomy 11/14/2023 Documentation Department of Urology in [place] [address] [place] [address] Sowmya Aviles APRN, C.N.P., M.S.N. 11/14/2023 Intake [facility] 11/14/2023 10:44 AM CDT - 11/14/2023 10:23 PM CDT Emergency [facility] [address] [place] [phone] Sergio Raza M.D. Hematuria (Primary Dx); Malfunction Mechanical Urethral Catheter Initial (HCC) Discharge Disposition: [facility] 11/10/2023 Clinical Communication Department of Urology in [address] [phone] Burke Strauss M.D. Oncology records request 11/09/2023 Clinical Communication Department of Urology in [address] [phone] Burke Strauss M.D. 11/09/2023 11:00 AM CDT Office Visit Department of Urology in [address] [phone] Burke Strauss M.D. Primary Malignant Neoplasm Of Prostate (HCC) (Primary Dx); Retention Urinary Chronic; Hematuria Gross Discharge Disposition: Home or Self Care 10/27/2023 Clinical Communication Department of Urology in [address] [phone] Burke Strauss M.D. 10/14/2023 Documentation Department of Urology in [place], [place] [address] [place] [phone] Paula Hernandez M.D. Catheter Care Plan 10/14/2023 1:00 PM CDT Procedure visit Department of Urology in [place], [place] [address] [place] [address] Paula Hernandez M.D. Reichmann, Lynne G, R.N. [...] teral 11/15/2023 Atherosclerotic Heart Diseas e Of [place] Coronary Artery Without Angina Pectoris 11/15/2023 Overview (11/15/2023): stent placements 2017 Complication Procedure Initial 11/15/2023 Deficiency Iron 11/15/2023 Hyperlipidemia 11/15/2023 Hypertension Essential Primary 11/15/2023 Group Home Current Use Of Oth er Agents Affecting Estrogen Receptors And Estrogen Levels 11/15/2023 Presence Of Other Vascular Implants And Grafts 0 11/15/2023 Other Specified Disorders Of Bladder 11/15/2023 Other Retention Of Urine 11/15/2023 PreDiabetes 11/15/2023 Presence Of Urogenital Implants 11/15/2023 Unspecified Complication Of Genitourinary Prosthetic Device Implant And Graft Initial 11/15/2023 Inferior Vena Cava Filter 11/15/2023 Group Home (Current) Anticoagulant Treatment 09/2023 Presence Of Other [...] Tobacco: Never Tobacco Cessation:Counseling Given: Not Answered [facility] Utilities Answer Date Recorded In the past 12 months has [facility] [employer], gas, oil, or water [employer] threatened to shut off services in your [...] visit Department of Urology in [place] [address] [place] [address] Burke Strauss M.D. [address] [place] [phone] Discharge Disposition: Home or Self Care 01/11/2024 10:00 AM CDT Office Visit Department of Urology in [place] [address] [place] [address] Burke Strauss M.D. [address] [place] [phone] Discharge Disposition: Home or Self Care Medical Devices Implanted Type Area Helminthologist Device Identifier Shelf Expiration Date Model / Serial / Lot Clp Hrzn Ti 6 Clp Lg Orng - [id number] Implanted:Qt y: 1 on 08/15/2023 by Boubacar Brock M.D. at [facility] Hardware e.g. pins/screws /rods Abdomen [employer] [id number] 02/29/[id number] / / [id number] Clp Hrzn Ti 6 Clp Lg Orng - [id number] Implanted:Qt y: 1 on 08/15/2023 by Boubacar Brock M.D. at [facility] Hardware e.g. pins/screws /rods Abdomen [employer]flex [employer] [id number] 02/29/[id number] / / [id number] Clp Hrzn Ti 6 Clp Md Monty - [id number] Implanted:Qt y: 1 on 08/15/2023 by Boubacar Brock M.D. at [facility] Hardware e.g. pins/screws /rods Abdomen [employer] [id number] 03/13/2028 [id number] / / [id number] 1 Clp Hrzn Ti 6 Clp Monty - [id number] Implanted:Qt y: 1 on 08/15/2023 by Boubacar Brock M.D. at [facility] Hardware e.g. pins/screws /rods Abdomen [employer] [id number] 03/21/2028 [id number] / / [id number] 3 Stnt Uret Inl 6fx24 - [id number] Implanted:Qt y: 1 on 08/15/2023 by Jakob De Paz M.D. at [facility] Ureteral Stent N/A: Ureter C.[employer].Bard [id number] 11/18/2027 [id number] / / [id number] Procedures Procedure Name Priority Date/Time Associated Diagnosis [...] M.D. LAB BLOOD ADD-ON Performing Organization Address City/[facility]/ZIP Co de Phone Number [facility] [address] [place] [address], [facility] [address] [address] * Creatinine with Estimated GFR (12/07/2023 12:25 PM CDT) Creatinine 1.13 0.74 - 1.35 mg/dL 12/07/2023 12:49 PM CDT NPR[facility] Estimated GFR (eGFR) 64 >=60 mL/min/BSA 12/07/2023 12:49 PM CDT NPRG Comment: Estimated GFR calculated using the 2020 CKD_EPI creatinine equation. Blood (Blood, Venous) 12/07/2023 12:25 PM CDT 12/07/2023 12:27 PM CDT Burke Strauss M.D. LAB BLOOD ADD-ON Performing Organization Address City/[facility]/ZIP Co de Phone Number [facility] [address] [place] [address], [facility] [address] [address] * (ABNORMAL) CBC without Differential (11/17/2023 7:24 [...] CDT Candelaria Rivas D.O. LAB BLOOD ADD-ON [facility] [place] [address], [facility] MKTO [facility] in [place] [address] [place] [address] * (ABNORMAL) Basic Metabolic Panel (11/17/2023 7:24 [...] D.O. LAB BLOOD ADD-ON Performing Organization Address City/[facility]/ZIP Co de Phone Number [facility] [address] [place] [address] * Glucose, POCT (11/17/2023 6:45 AM CDT) Pathologist [facility] Glucose, POCT, B 107 70 - 140 mg/dL 11/17/2023 6:45 AM CDT MKTO Blood 11/17/2023 6:45 AM CDT 11/17/2023 7:03 AM CDT Generic Rals LAB POCT ORDERABLES- MANUAL Performing Organization Address [facility] Co de Phone Number [facility] [address] [place] [address], [place] [address] * (ABNORMAL) CBC with Differential, Blood (11/16/2023 [...] M.D. LAB BLOOD ADD-ON [facility] [place] [address], [facility] MKTO [facility] in [place] [address] [place] [address] * (ABNORMAL) Comprehensive Metabolic Panel (11/16/2023 6:25 [...] M.D. LAB BLOOD ADD-ON [facility] [address] [place] [address] [place] [address] * Transfuse Red Blood Cells : (11/15/2023 6:35 PM CDT) Madelyn Cesar D.O. BLOOD TRANSFUSION OR DERABLES * Testing Location (11/15/2023 11:09 AM CDT) Testing Location [facility] DEFAULT 11/15/2023 11:47 AM CDT MKTO Blood 11/15/2023 11:0 9 AM CDT 11/15/2023 11:47 AM CDT Sergio Raza M.D. LAB BLOOD BANK TEST ORDERABLES Performing Organization Address City/[facility]/ZIP Co de Phone Number [facility] [address] [place] [address] * Coccyx-Wound Ostomy Image Exam (11/15/2023 10:40 [...] RAD IMAGI NG PROCEDURES Performing Organization Address City/[facility]/ZIP Co de Phone Number [facility] NA * ECG 12 Lead (11/15/2023 6:47 AM CDT) Ventricular Rate ECG/Min 65 BPM MUSE [place] Interval 144 ms MUSE QRSD Interval 76 ms MUSE QT Interval 430 ms MUSE QTC Interval 447 ms MUSE P [place] -7 degrees MUSE R [place] 9 degrees MUSE T Wave [place] 19 degrees MUSE 11/15/2023 6:47 AM CDT [...] to determine due to color interference Specific [place] SEE COMMENT 1.001 - 1.035 11/15/2023 8:03 AM CDT MKTO Comment:Unable to determine due to color interference Urobilinogen SEE COMMENT 0.2 - 1.0 mg/dL 11/15/2023 8:03 AM CDT MKTO Comment:Unable to determine due to color interference Urine (Urine, Midstream) 11/15/2023 6:25 AM CDT 11/15/2023 6:34 AM CDT Sylvie Wright M.D. LAB UBALDO NE ORDERABLES Performing Organization Address [facility] Co de Phone Number [facility] [address] [place] [address], [facility] MKTO [facility] [place] [address] * (ABNORMAL) Microscopic Automated (11/15/2023 6:25 AM [...] Sylvie Wright M.D. [place] [address] * Bacterial Culture, Aerobic + Susceptibility, Urine (11/15/2023 6:24 AM CDT) Urine Culture Urogenital microbiota, susceptibilities not performed per laboratory criteria. 11/16/2023 11:36 AM CDT [facility] Urine (Urine, Indwelling Catheter) 11/15/2023 6:24 AM CDT 11/15/2023 9:29 AM CDT Comment:Specimen Source Site : Urine Mark Marmolejo APRN.N.Jay., M.S. LAB MICROBIOLOGY - GENERAL ORDERABLES Performing Organization Address [facility] [place] [address] * CT Abdomen Pelvis without IV Contrast [...] of hyperdense material within the urinary bladder. Tabaers catheter. Focal wallthickening along the base of [...] Hold Sample (11/14/2023 11:09 AM CDT) Pathologist [facility] Blood Bank Hold Sample HOLD Confirmed 11/14/2023 11:31 AM CDT NPRG Blood (Blood, Venous) 11/14/2023 11:09 AM CDT 11/14/2023 11:12 AM CDT Sergio Raza M.D. LAB BLOOD BANK TEST ORDERABLES Performing Organization Address City/[facility] Co de Phone Number [facility] [address] [place] [address], [facility] NPRG [place] [address] [place] [address] * Type and Screen (with Reflex Antibody [...] BLOOD BANK TEST ORDERABLES Performing Organization Address City/[facility] Co de Phone Number [facility] [address] [place] [address], [facility] NPRG [address] [address] from Last 3 Months Advance Directives For more information, please contact: [phone] * Full Code (Latest Code Status on [...] Answer Comments Full Code: Discussed Care Teams Duty Engineer Relationship Specialty Start Date End Date Elsewhere, Pcp PCP - General Internal Medicine 08/13/23
--- OUTSIDE RECORDS SUMMARY | 2024-01-06 11:28 | XMS_ITS | Clinical Summary ---
Author Organization [facility] Address [address] [place] [address] Care Team Providers Care Theatrical Variety Agent Name Role Phone Elsewhere, Pcp Primary Care Provider Unavailabl e Source Comments Patient records contain information from all sites at [facility]. For routine questions regarding patient records, call [phone] during business hours, M-F 8:00 AM - 5:00 PM Central Time. 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 Gray, Margaret A, L.PNarendra Nurse Visit (Catheter Irrigation ) Discharge Disposition: Home or Self Care 12/08/2023 9:30 AM CDT Office Visit Department of Urology in [address] [address] Burke Strauss M.D. Retention Urinary Chronic (Primary Dx); Anemia; Anemia In Neoplastic Disease; Fpc (Current) Anticoagulant Treatment Discharge Disposition: Home or Self Care 12/07/2023 12:19 PM CDT - 12/07/2023 11:59 PM CDT Hospital Encounter Department of Laboratory Medicine in [address] [address] Burke Strauss M.D. Anemia; Hematuria Gross; Retention Urinary Chronic Discharge Disposition: Home or Self Care 12/07/2023 10:30 AM CDT Office Visit Department of Urology in [address] [address] Burke Strauss M.D. Hematuria Gross (Primary Dx); Radiation Therapy Cystitis With Hematuria; Anemia; Retention Urinary Chronic Discharge Disposition: Home or Self Care 11/30/2023 6:44 PM CDT - 11/30/2023 8:06 PM CDT Emergency [facility] [address] [place] [phone] Carmen Cherry M.D., M.P.H. Leakage Of Other Urinary Catheter Initial (HCC) (Primary Dx) Discharge Disposition: Home or Self Care 11/15/2023 10:40 AM CDT Ancillary Procedure Department of Wound Ostomy 11/14/2023 11:38 PM CDT - 11/17/2023 3:55 PM CDT Hospital Encounter [facility], Fifth Floor [address] [place] [address] Eliceo Guerrier M.D., Ph.D. Sylvie Álvarez M.B.BLoly, MRashawn Gauthier M.D. Burkland, Carl B, M.D. Hematuria Gross (Primary Dx) Discharge Disposition: Home-Health Care [facility] 11/14/2023 10:44 AM CDT - 11/14/2023 10:23 PM CDT Emergency [facility] [address] [place] [phone] Sergio Raza M.D. Hematuria (Primary Dx); Malfunction Mechanical Urethral Catheter Initial (HCC) Discharge Disposition: [facility] 11/14/2023 Documentation Department of Urology in [place] [address] Sowmya Aviles APRN CJonahNJonahPJonah, M.S.N. 11/14/2023 Intake [facility] 11/10/2023 Clinical Communication Department of Urology in [address] [address] Burke Strauss M.D. Oncology records request 11/09/2023 11:00 AM CDT Office Visit Department of Urology in [address] [address] Burke Strauss M.D. Primary Malignant Neoplasm Of Prostate (HCC) (Primary Dx); Retention Urinary Chronic; Hematuria Gross Discharge Disposition: Home or Self Care 11/09/2023 Clinical Communication Department of Urology in [address] [address] Burke Strauss M.D. 10/27/2023 Clinical Communication Department of Urology in [address] [address] Burke Strauss M.D. 10/14/2023 1:00 PM CDT Procedure visit Department of Urology in [place], [place] [address] [place] [phone] Paula Hernandez M.D. Reichmann, Lynne G, RJonahNJonah Hematuria 10/14/2023 Documentation Department of Urology in [place], [place] [address] [place] [address] Paula Hernandez M.D. Catheter Care Plan from Last 3 Months Social History Tobacco Use Types Packs/Day Years Used Date Smoking Tobacco: Never Smokeless Tobacco: Never Tobacco Cessation:Counseling Given: Not Answered [facility] Utilities Answer Date Recorded In the past 12 months has [employer], gas, oil, or water company threatened to [...] a [facility] 11/15/2023 Sex [...] CDT Procedure visit Department of Urology in [place] [address] [place] [address] Burke Strauss M.D. [address] [place] [phone] Discharge Disposition: Home or Self Care 01/11/2024 10:00 AM CDT Office Visit Department of Urology in [place] [address] [place] [address] Burke Strauss M.D. [address] [place] [phone] Discharge Disposition: Home or Self Care Health Maintenance Due Date Last Done Comments Office Visit for Blood Press ure Check / Re-check 1940 Zoster Vaccines (1 of 2) 1989 RSV vaccine - (32-3 6 weeks) or 60+ years (1 - 1-dose 75+ series) 2014 Depression Screening (Annual PHQ-2) 04/11/2023 COVID-19 Vaccine (2023-2 5 season) 2023 07/21/2023, 03/08/2023, 09/13/2022, Additional history exists Influenza Vaccine (#1) 2024 03/08/2023, 2021 Fasting Glucose for Diabetes Screening 11/16/2024 11/17/2023, 11/17/2023, 11/16/2023, Additional history exists DTaP,Tdap,and Td Vaccines (2 - Td or Tdap) 09/07/2026 09/07/2016 Pneumococcal vaccine (65+ years) Completed 07/21/19 Fall Risk Screen (Annual) Completed 11/14/2023 Medical Devices Implanted Type Area Pan Devulcanizer Helper Device Identifier Shelf Expiration Date Model / Serial / Lot Clp Hrzn Ti 6 Clp Lg Orng - [id number] Implanted:Qt y: 1 on 08/15/2023 by Boubacar Brock M.D. at [facility] Hardware e.g. pins/screws /rods Abdomen [employer] [id number] 02/29/2028 [id number] / / [id number] Clp Hrzn Ti 6 Clp Lg Orng - [id number] Implanted:Qt y: 1 on 08/15/2023 by Boubacar Brock M.D. at [facility] Hardware e.g. pins/screws /rods Abdomen [employer] [id number] 02/29/2028 [id number] / / [id number] Clp Hrzn Ti 6 Clp Md Monty - [id number] Implanted:Qt y: 1 on 08/15/2023 by Boubacar Brock M.D. at [facility] Hardware e.g. pins/screws /rods Abdomen [employer] [id number] 03/13/2028 [id number] / / [id number] Clp Hrzn Ti 6 Clp Md Monty - [id number] Implanted:Qt y: 1 on 08/15/2023 by Boubacar Brock M.D. at [facility] Hardware e.g. pins/screws /rods Abdomen [employer] [id number] 03/21/2028 [id number] / / [id number] Stnt Uret Inl 6fx24 - [id number] Implanted:Qt y: 1 on 08/15/2023 by Jakob De Paz M.D. at [facility] Ureteral Stent N/A: Ureter [employer].Bard [id number] 11/18/2027 [id number] / / [id number] Procedures Procedure Name Priority Date/Time Associated Diagnosis [...] Burke Strauss M.D. LAB BLOOD ADD-ON [facility] [address] [place] [address], [facility] NPRG [facility] [address] [place] [address] * Creatinine with Estimated GFR (12/07/2023 12:25 PM CDT) Creatinine 1.13 0.74 - 1.35 mg/dL 12/07/2023 12:49 PM CDT NPRG Estimated GFR (eGFR) 64 >=60 mL/min/BSA 12/07/2023 12:49 PM CDT NPRG Comment: Estimated GFR calculated using the 2020 CKD_EPI creatinine equation. Blood (Blood, Venous) 12/07/2023 12:25 PM CDT 12/07/2023 12:27 PM CDT Burke Strauss M.D. LAB BLOOD ADD-ON [facility] [address] [place] [address], [facility] NPRG [facility] [address] [place] [address] * (ABNORMAL) CBC without Differential (11/17/2023 7:24 [...] Rivas D.O. LAB BLOOD ADD-ON [facility] [address] [place] [address], [facility] MKTO [facility] in [place] [address] [place] [address] * (ABNORMAL) Basic Metabolic Panel (11/17/2023 7:24 AM CDT) Only the most recent of2 resultswithin the time period is included. Pathologist [facility] Potassium, P 4.3 3.6 - 5.2 mmol/L [...] Rivas D.O. LAB BLOOD ADD-ON [facility] [place] [address], [facility] [place] [address] * Glucose, POCT (11/17/2023 6:45 AM CDT) Glucose, POCT, B 107 70 - 140 mg/dL 11/17/2023 6:45 AM CDT MKTO Blood 11/17/2023 6:45 AM CDT 11/17/2023 7:03 AM CDT Generic Rals LAB POCT ORDERABLES- MANUAL [facility] [address] [place] [address], [facility] MKTO [facility] in [place] [address] [place] [address] * (ABNORMAL) CBC with Differential, Blood (11/16/2023 [...] Vences M.D. LAB BLOOD ADD-ON [facility] [address] [place] [address], [facility] MKTO [facility] [place] [address] [place] [address] * (ABNORMAL) Comprehensive Metabolic Panel (11/16/2023 6:25 [...] [facility]/ZIP Co de Phone Number [facility] [address] [place] [address] * Transfuse Red Blood Cells : (11/15/2023 6:35 PM CDT) Madelyn Cesar D.O. BLOOD TRANSFUSION OR DERABLES * Testing Location (11/15/2023 11:09 AM CDT) Testing Location [facility] DEFAULT 11/15/2023 11:47 AM CDT MKTO Blood 11/15/2023 11:0 9 AM CDT 11/15/2023 11:47 AM CDT Sergio Raza M.D. LAB BLOOD BANK TEST ORDERABLES Performing Organization Address [facility]/ZIP Co de Phone Number [facility] [address] [place] [address] * Coccyx-Wound Ostomy Image Exam (11/15/2023 10:40 [...] RAD IMAGI NG PROCEDURES Performing Organization Address [facility] de Phone Number [facility] NA * ECG 12 Lead (11/15/2023 6:47 AM CDT) Ventricular Rate ECG/Min 65 BPM MUSE WA Interval 144 ms MUSE QRSD Interval 76 ms MUSE QT Interval 430 ms MUSE QTC Interval 447 ms MUSE P [place] -7 degrees MUSE R [place] 9 degrees MUSE T Wave [place] 19 degrees MUSE 11/15/2023 6:47 AM CDT [...] M.D. ECG ORD ERABLES Performing Organization Address [facility] Co de Phone Number MUSE [...] to determine due to color interference Specific [place] SEE COMMENT 1.001 - 1.035 11/15/2023 8:03 AM CDT MKTO Comment:Unable to determine due to color interference Urobilinogen SEE COMMENT 0.2 - 1.0 mg/dL 11/15/2023 8:03 AM CDT MKTO Comment:Unable to determine due to color interference Urine (Urine, Midstream) 11/15/2023 6:25 AM CDT 11/15/2023 6:34 AM CDT Sylvie Wright M.D. LAB URI NE ORDERABLES [facility] [address] [place] [address], [facility] [place] [address] [place] [address] * (ABNORMAL) Microscopic Automated (11/15/2023 6:25 AM [...] LAB URI NE ORDERABLES Performing Organization Address City/[facility] Co de Phone Number [facility] [address] [place] [address] * Bacterial Culture, Aerobic + Susceptibility, Urine (11/15/2023 6:24 AM CDT) Urine Culture Urogenital microbiota, susceptibilities not performed per laboratory criteria. 11/16/2023 11:36 AM CDT MKTO Urine (Urine, Indwelling Catheter) 11/15/2023 6:24 AM CDT 11/15/2023 9:29 AM CDT Comment:Specimen Source Site : Urine Zachery aTnner APRN C.N.P., M.S. LAB MICROBIOLOGY - GENERAL ORDERABLES Performing Organization Address [facility] Co de Phone Number [facility] [address] [place] [address] * CT Abdomen Pelvis without IV Contrast [...] coronary artery calcifications. IVC filter. Procedure Note aMrquis Aquino M.D. - 11/14/2023 EXAM: CT ABDOMEN [...] M.D. LAB BLOOD BANK TEST ORDERABLES [facility] [address] [place] [address], [facility] [address] [place] [address] * Type and Screen (with Reflex Antibody [...] Raza M.D. LAB BLOOD BANK TEST ORDERABLES [facility] [address] [place] [address], [place] NPRG [facility] [address] [place] [address] from Last 3 Months Advance Directives For more information, please contact: [phone] * Full Code (Latest Code Status on [...] Answer Comments Full Code: Discussed Care Teams Theatrical Variety Agent Relationship Specialty Start Date End Date Elsewhere, Pcp PCP - General Internal Medicine 08/13/23
--- OUTSIDE RECORDS SUMMARY | 2024-01-06 11:28 | XMS_ITS | Encounter Summary ---
Author Organization [facility] Address [address] [place] [address] Care Team Providers Care Glassware Defect Repairer Name Role Phone Elsewhere, Pcp Primary Care Provider Unavailabl e Reason for Referral * Outpatient (Routine) - Authorized Specialty Diagnoses / Procedures Referred By Leyla rosenthal Referred To Contact Urology Wili Sosa M.D. [address] [place] [phone] [facility] Referral ID Status Reason Start Date Expiration Date V isits Requested Visits Authorized [id number] Authorized 12/14/2023 06/14/2025 1 1 Reason for Visit * Reason Comments Nurse Visit Catheter Irrigation * Outpatient (Routine) - Closed Specialty Diagnoses / Procedures Referred By Leyla rosenthal Referred To Contact Urology Diagnoses Retention Urinary Chronic Wili Sosa M.D. [address] [place] [phone] [facility] Referral ID Status Reason Start Date Expiration Date Visits Re quested Visits Authorized [id number] Closed 12/08/2023 06/08/2025 1 1 Encounter Details Date Type Department Care Team (Late st Contact Info) Description 12/13/2023 9:15 AM CDT Nurse Only Department of Urology in [place], [place] [address] [place] [phone] Wili Sosa M.D. [address] [place] [address] Latonia Dumont L.P.N. Nurse Visit (Catheter Irrigation ) Discharge Disposition: Home or Self Care Social History Tobacco Use Types Packs/Day Years Used Date Smoking Tobacco: Never Smokeless Tobacco: Never [facility] [employer] Answer Date Recorded In the past 12 months has [employer] gas, oil, or water [employer] threatened to shut off services in your [...] a [facility] place to live 11/15/2023 Sex and [...] Procedure visit Department of Urology in [address] [phone] Wili Sosa M.D. [address] [place] [phone] Discharge Disposition: Home or Self Care 01/11/2024 10:00 AM CDT Office Visit Department of Urology in [address] [address] Wili Sosa M.D. [address] [place] [phone] Discharge Disposition: Home or Self Care Scheduled Referrals Name Type Priority Associated Diagnoses Orde r Schedule Urology office visit (clinic) General Outpatient Referral Routine Expected: 01/11/2024 (Approximate), Expires: 03/14/2025 documented as of this encounter Visit Diagnoses Diagnosis Retention Urinary Chronic documented in this encounter Care Teams Glassware Defect Repairer Relationship Specialty Start Date End Date Elsewhere, Pcp PCP - General Internal Medicine 08/13/23 documented as of this encounter
--- OUTSIDE RECORDS SUMMARY | 2024-01-06 11:28 | XMS_ITS | Clinical Summary ---
Author Organization [facility] Address [address] [place] [address] Care Team Providers Care Dealer Development Manager Name Role Phone Cesar Mccollum Primary Care Provider [phone] Allergies No known active allergies Medications Medication [...] this topic Medical Devices Implanted Type Area Owner Operator Tanker Truck Driver Device Identifier Shelf Expiration Date Model / Serial / Lot Stent Ureteral Polaris Ultra [id number] - [id number] Implanted:Qty : 1 on 02/08/2022 by Nicola Ware MD at [facility] Stent Right: Ureter [employer] [id number] 10/08/2024 [id number] Explanted Type Area Owner Operator Tanker Truck Driver Device Identifier Shelf Expiration Date Model / Serial / Lot Stent Came Out Of The Right Ureter Explanted:Qty: 1 on 02/08/2022 by Nicola Ware MD at [facility] Right: Urethra Advance Directives For more information, please contact: [phone] Documents on File Type Date Recorded Patient Tallier Expl anation Advance Directives and Living Will 02/17/2022 Health Care Directiv e 05/15/2021 Healthcare Agents on File Name Relationship Healthcare Agent Relationship Communication Mindy Waterman Daughter Co-First Alterna te Health Care Agent Meera Vega Spouse Health Care Agent [id number] (Home) Favio Vega Son Co-First Altern ate Health Care Agent Tereso Vega Son Co-First Alterna te Health Care Agent Care Teams Dealer Development Manager Relationship Specialty Start Date End Date Cesar Mccollum [address] [place] [address] PCP - General Family Medicine 11/22/22
--- OUTSIDE RECORDS SUMMARY | 2024-01-06 11:28 | XMS_ITS ---
Author Organization [facility] Address [address] [place] [address] Care Team Providers Care Food Product Inspector Name Role Phone Unavailable Unavailable Unavailable Surgery Details Not on file Complications Check Surgery Details section. Procedure Estimated Blood Loss Check Surgery Details section. Procedure Findings Check Surgery Details section. Procedure Specimens Taken Check Surgery Details section.
--- OUTSIDE RECORDS SUMMARY | 2024-01-06 11:29 | XMS_ITS | Encounter Summary ---
Author Organization [facility] Address [address] [place] [address] Care Team Providers Care Diplomatic Interpreter Name Role Phone Elsewhere, Pcp Primary Care Provider Unavailabl e Encounter Details Date Type Department Care Team (Late st Contact Info) Description 11/09/2023 Clinical Communication Department of Urology in [place], [place] [address] [place] [address] Burke Strauss M.D. [address] [place] [phone] Social History Tobacco Use Types Packs/Day Years [...] Procedure visit Department of Urology in [address] [address] Burke Strauss M.D. [address] [place] [phone] Discharge Disposition: Home or Self Care 01/11/2024 10:00 AM CDT Office Visit Department of Urology in [address] [address] Burke Strauss M.D. [address] [place] [phone] Discharge Disposition: Home or Self Care documented as of this encounter Visit Diagnoses Not on filedocumented in this encounter Care Teams Diplomatic Interpreter Relationship Specialty Start Date End Date Elsewhere, Pcp PCP - General Internal Medicine 08/13/23 documented as of this encounter
--- OUTSIDE RECORDS SUMMARY | 2024-01-06 11:29 | XMS_ITS | Encounter Summary ---
Author Organization [facility] Address [address] [place] [address] Care Team Providers Care Digital Marketing Manager Name Role Phone Elsewhere, Pcp Primary Care Provider Unavailabl e Reason for Visit * Reason Comments Urinary Catheter Change Pt reports leaki ng from part of three way catheter, believes he may have nicked it with a scissors. Encounter Details Date Type Department Care Team (Late st Contact Info) Description 11/30/2023 6:44 PM CDT - 11/30/2023 8:06 PM CDT Emergency [facility] [address] [place] [phone] Carmen Cherry M.D., M.P.H. [address] [place] [phone] Leakage Of Other Urinary Catheter Initial (HCC) [...] [facility] live 11/15/2023 Sex and [...] Everywhere. * Indwelling Urinary Catheter Care Adult [id number] (Emirati) documented in this encounter Medications at Time [...] Procedure visit Department of Urology in [address] [address] Burke Strauss M.D. [address] [place] [phone] Discharge Disposition: Home or Self Care 01/11/2024 10:00 AM CDT Office Visit Department of Urology in [address] [address] Burke Strauss M.D. [address] [place] [phone] Discharge Disposition: Home or Self Care documented [...] (Due) documented in this encounter Care Teams Digital Marketing Manager Relationship Specialty Start Date End Date Elsewhere, Pcp PCP - General Internal Medicine 08/13/23 documented as of this encounter
--- OUTSIDE RECORDS SUMMARY | 2024-01-06 11:29 | XMS_ITS | Encounter Summary ---
Author Organization [facility] Address [address] [place] [address] Care Team Providers Care Child Care Worker Name Role Phone Elsewhere, Pcp Primary Care Provider Unavailabl e Encounter Details Date Type Department Care Team (Latest Contact Info) Description 11/14/2023 Intake [facility] Social History Tobacco Use Types Packs/Day Years Used Date Smoking Tobacco: Never Smokeless Tobacco: Never [facility] Utilities Answer Date Recorded [...] have a [facility] place to live 11/15/2023 Sex and Gender Information Value Date Recorded Sex Assigned at Not on file Gender Identity Not on file Sexual Orientation Not on file documented as of this encounter Plan of Treatment Upcoming Encounters Date Type Department Care Team (Latest Contact Info) Description 01/11/2024 9:00 AM CDT Procedure visit Department of Urology in [place] [address] [place] [address] Burke Strauss M.D. [address] [place] [phone] Discharge Disposition: Home or Self Care 01/11/2024 10:00 AM CDT Office Visit Department of Urology in [place] [address] [place] [address] Burke Strauss M.D. [address] [place] [phone] Discharge Disposition: Home or Self Care documented as of this encounter Visit Diagnoses Not on filedocumented in this encounter Care Teams Child Care Worker Relationship Specialty Start Date End Date Elsewhere, Pcp PCP - General Internal Medicine 08/13/23 documented as of this encounter
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
--- OUTSIDE RECORDS SUMMARY | 2024-01-06 11:29 | XMS_ITS | Encounter Summary ---
Author Organization [facility] Address [address] [place] [address] Care Team Providers Care Surgery Attendant Name Role Phone Elsewhere, Pcp Primary Care Provider Unavailabl e Encounter Details Date Type Department Care Team (Late st Contact Info) Description 11/14/2023 Documentation Department of Urology in [place], [place] [address] [place] [address] Sowmya Aviles, ARUN, C.N.P., M.S.N. [address] [place] [phone] Social History Tobacco Use Types Packs/Day Years [...] PM CDT Contacted via [facility] regarding this patient. Not personally seen or evaluated as patient is in the [facility] Emergency Department. Kalen Vega is a 83 y.o. male with medical comorbidities of acute DVT on Plavix, coronary artery disease status post stent, degenerative joint disease, hyperlipidemia, lymphedema, prediabetes. 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 Tan in [place], [place]. Right hydronephrosis and right atrophic kidney [...] was readmitted to hospital. He presented to [facility] Emergency Department today for evaluation of hematuria and no drainage into urinary catheter. He reports leakage around the catheter of urine and blood clots. A 22 Kiswahili three-way catheter was placed, patient was hand [...] CDT Procedure visit Department of Urology in [place], [place] [address] [place] [address] Burke Strauss M.D. [facility] [place] [address] Discharge Disposition: Home or Self Care 01/11/2024 10:00 AM CDT Office Visit Department of Urology in [place] [address] [place] [phone] Burke Strauss M.D. [address] [place] [phone] Discharge Disposition: Home or Self Care documented as of this encounter Visit Diagnoses Not on filedocumented in this encounter Care Teams Surgery Attendant Relationship Specialty Start Date End Date Elsewhere, Pcp PCP - General Internal Medicine 08/13/23 documented as of this encounter
--- OUTSIDE RECORDS SUMMARY | 2024-01-06 11:29 | XMS_ITS | Encounter Summary ---
Author Organization [facility] Address [address] [place] [address] Care Team Providers Care Racker Octave Board Name Role Phone Elsewhere, Pcp Primary Care Provider Unavailabl e Reason for Referral * Outpatient (Routine) - Closed Specialty Diagnoses / Procedures Referred By Leyla rosenthal Referred To Contact Urology Diagnoses Retention Urinary Chronic Burke Strauss M.D. [address] [place] [address] [facility] Referral ID Status Reason Start Date Expiration Date Visits Re quested Visits Authorized [id number] Closed 12/08/2023 06/08/2025 1 1 Reason for Visit * Reason Comments Follow-up Irrigation of cathet er * Outpatient (Routine) - Closed Specialty Diagnoses / Procedures Referred By Leyla rosenthal Referred To Contact Urology Burke Strauss M.D. [address] [place] [phone] [facility] Referral ID Status Reason Start Date Expiration Date Visits Re quested Visits Authorized [id number] Closed 12/07/2023 06/07/2025 1 1 Encounter Details Date Type Department Care Team (Latest Contact Info) Description 12/08/2023 9:30 AM CDT Office Visit Department of Urology in [place], [place] [address] [place] [phone] Burke Strauss M.D. [address] [place] [phone] Retention Urinary Chronic (Primary Dx); Anemia; Anemia In Neoplastic Disease; Halfway (Current) Anticoagulant Treatment Discharge Disposition: Home or Self Care Social History Tobacco Use Types Packs/Day Years Used Date Smoking Tobacco: Never Smokeless Tobacco: Never [facility] Utilities Answer Date Recorded In the past 12 months has [facility] [employer], gas, oil, or water [employer] threatened to shut off services in your [...] 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 Trench Pipe Layer Helper (Current) Anticoagulant Treatment Orders Placed This Encounter [...] CDT Procedure visit Department of Urology in [address] [phone] Burke Strauss M.D. [address] [place] [phone] Discharge Disposition: Home or Self Care 01/11/2024 10:00 AM CDT Office Visit Department of Urology in [address] [phone] Burke Strauss M.D. [address] [place] [phone] Discharge Disposition: Home or Self Care Scheduled Referrals Name Type Priority Associated Diagnoses Orde r Schedule Urology nurse visit (clinic) Outpatient Referral Routine Retention Urinary Chronic Expected: 12/13/2023, Expires: 03/09/2025 documented as of this encounter Visit Diagnoses Diagnosis Retention Urinary Chronic- Primary Anemia Anemia In Neoplastic Disease Halfway (Current) Anticoagulant Treatment documented in this encounter Care Teams Racker Octave Board Relationship Specialty Start Date End Date Elsewhere, Pcp PCP - General Internal Medicine 08/13/23 documented as of this encounter
--- OUTSIDE RECORDS SUMMARY | 2024-01-06 11:29 | XMS_ITS | Encounter Summary ---
Author Organization [facility] Address [address] [place] [address] Care Team Providers Care Forensic Chemist Name Role Phone Elsewhere, Pcp Primary Care Provider Unavailabl e Reason for Referral * Outpatient (Routine) - Authorized Specialty Diagnoses / Procedures Referred By Contac t Referred To Contact Diagnoses Hematuria Gabe Neal M.D. [address] [place] [address] Referral ID Status Reason Start Date Expiration Date V isits Requested Visits Authorized [id number] Authorized 11/17/2023 05/18/2025 1 1 Encounter Details Date Type Department Care Team (Late st Contact Info) Description 11/14/2023 11:38 PM CDT - 11/17/2023 3:55 PM CDT Hospital Encounter [facility], Fifth Floor [address] [place] [address] Eliceo Guerrier M.D., Ph.D. [address] [place] [address] Sylvie Álvarez M.B.B.S., M.D. [address] [place] [address] Rashawn Vences M.D. [address] [place] [address] Gabe Buckley M.D. [address] [place] [address] Smith Peter (Primary Dx) Discharge Disposition: Home-Health Care Svc Social History Tobacco Use Types Packs/Day Years Used Date Smoking Tobacco: Never Smokeless Tobacco: Never [facility] Utilities Answer Date Recorded In the past 12 months has [facility] [employer], gas, oil, or water [employer] threatened to shut off services in your [...] [facility] place to live 11/15/2023 Sex and [...] DISCHARGE SUMMARY BRIEF OVERVIEW Discharge Hospital: Hospital: [facility] Discharge Provider: Gabe Buckley M.D. Primary Care Providers: Dr. 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 Cesar Mccollum to discuss restarting OUTPATIENT FOLLOW UP Scheduled Appointments 12/07/2023 10:15 AM [facility] SPECIALTY NURSE 01 NPNC; URO [...] filter and chronic pressure wounds presented to [facility] 11/[facility]/23 gross hematuria including around his indwelling [...] discussed with Dr. Gabe Rivas DO. PGY-1 [facility] Family Medicine Residency [place] Associated attestation - Gabe Buckley M.D. - [...] 83 y.o. male who was admitted to [facility] 11/14/2023 due to Hematuria Gross [R31.0]. Patient was accompanied by son, Kar. This customs entry writer finalized arrangements for resumption of home health care services. 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 INTERVENTION This customs entry writer sent a service reconnection, including resumption of care order, to resumption of home health care services to [facility] [place] as the fax number matches the fax [...] Muscle Mass: Normal Fluid Accumulation: Absent Reduced Ground Nuclear Weapons Assembly Officer Strength: Not applicable This is in the [...] 83 y.o. male who was admitted to [facility] 11/14/2023 due to Hematuria Gross [R31.0]. Patient was accompanied by daughter (Mindy) and son (Kar). This customs entry writer continues to assist in home health care reconnection. 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 INTERVENTION Patient's daughter, Mindy, provided this customs entry writer with contact information for Doreen Javier, nurse intensive care anaesthetist for [facility]; [phone]. This customs entry writer left Doreen a voicemail, requesting a [...] bag -monitor CMP for kidney function -continue HUMAN RESOURCES OFFICER tamsulosin -continue HUMAN RESOURCES OFFICER enzalutamide -urine culture, per urology # Coronary artery disease without angina pectoris, status post 6 stents # History of DVTs, status post IVC filter # Hyperlipidemia Is on both Plavix and Xarelto at home. -start Xarelto 11/16/2023 so response can be monitored while hospitalized -continue HUMAN RESOURCES OFFICER amlodipine -continue HUMAN RESOURCES OFFICER rosuvastatin -continue HUMAN RESOURCES OFFICER metoprolol # Chronic Pressure Wound, Coccyx -continue wound care -offloading as much as possible Non-severe (moderate) Malnutrition (11/15/23) The patient meets the ASPEN Criteria of malnutrition based on: Energy Intake: Less than 75% of estimated energy requirement for greater than or equal to 1 month Interpretation of Weight Loss: 7.5% 3 months Body Fat: Normal Muscle Mass: Normal Fluid Accumulation: Absent Reduced Ground Nuclear Weapons Assembly Officer Strength: Not applicable This is in the [...] Gabe Buckley M.D. Candelaria Rivas DO. PGY-1 [facility] Family Medicine Residency [place] Associated attestation - Gabe Buckley M.D. - 11/16/2023 6:25 PM CDT I saw and evaluated the patient, participating in the henderson portions of the service. I reviewed the resident/fellow???s note. I agree with the resident/fellow???s findings and plan. 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 Medicine Service * Candelaria Rivas D.O. - [...] recommendations -monitor CMP for kidney function -continue HUMAN RESOURCES OFFICER tamsulosin -continue HUMAN RESOURCES OFFICER enzalutamide -urine culture, per urology # Coronary artery disease without angina pectoris, status post 6 stents # History of DVTs, status post IVC filter # Hyperlipidemia Is on both Plavix and Xarelto at home. Urology recommendations on restarting blood thinners. -may consider restarting one or both on 11/16/2023 so response can be monitored while hospitalized -continue HUMAN RESOURCES OFFICER amlodipine -continue HUMAN RESOURCES OFFICER rosuvastatin -continue HUMAN RESOURCES OFFICER metoprolol # Chronic Pressure Wound, Coccyx -continue wound care -offloading as much as possible Non-severe (moderate) Malnutrition (11/15/23) The patient meets the ASPEN Criteria of malnutrition based on: Energy Intake: Less than 75% of estimated energy requirement for greater than or equal to 1 month Interpretation of Weight Loss: 7.5% 3 months Body Fat: Normal Muscle Mass: Normal Fluid Accumulation: Absent Reduced Ground Nuclear Weapons Assembly Officer Strength: Not applicable This is in the [...] Rashawn Vences M.D. Candelaria Rivas DO. PGY-1 [facility] Family Medicine Residency [place] Associated attestation - Rashawn Vences M.D. - [...] other issues. [facility] yesterday with complaints of [...] and visits for hematuria. Patient presented at [facility] yesterday because of bleeding around his [place] [...] vomiting, no abdominal pain. Patient presented at [facility] where urology was contacted, manual bladder irrigation [...] N/A 08/31/2023 Procedure: CYSTOSCOPY EVACUATION CLOTS; Surgeon: aMyur Alvarez M.D.; Location: [facility] OR CYSTOSCOPY [...] anemia, hemoglobin now 8.2. Patient presented to [facility] ED because of bleeding around his [place] catheter. At [facility], patient had manual bladder irrigation with normal [...] CDTAssociated Order(s): Dietitian consult (hospital); Dietitian Consult ([facility]) Dietitian Consult (Hospital) Referring Provider: Bolivar Carvalho [...] had lost 28lbs during his stay in [place] as he was NPO for12 days then [...] Muscle Mass: Normal Fluid Accumulation: Absent Reduced Ground Nuclear Weapons Assembly Officer Strength: Not applicable This is in the [...] 84.1 kg BMI (Calculated): 26.6 kg/m?? 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) Anticoagulant Treatment Social History Marital Status: [...] Cooperative, Oriented Communication: Talks, Understands speaking, Understands Estonian Shopping: Appropriate to age/development Medication Management: Independent Housekeeping: Appropriate to age/development Meal Prep: Appropriate to age/development Assistive Devices: Eyeglasses, Hearing aid(s) Agency Name: [facility] Services Provided: long-term once weekly for wound care, PT, social work, DarwinRN intensive care anaesthetist Transportation: Support from family Baseline Services/Resources Primary care clinic and provider: ELSEWHERE, PCP Anticipated Needs Functional Status: Tasks appropriate to patient's age/development, Transportation use (drive car, use taxi/bus) Assistive Devices: Eyeglasses, Hearing aid(s) Services/Resources: Home health Agency Name: [facility] Provided: long-term once weekly for wound care, PT, social work, Makenzie intensive care anaesthetist Does the patient need discharge transport arranged?: No Anticipated Discharge Destination: Home-Health Care Svc OBJECTIVE Substance Abuse no symptoms Mental Health Mental Health History: Patient reports no mental health history Patient reports no current concerns Mental Health Treatment History No history of Psychiatric Treatment noted Suicide Risk and Safety Risk Assessment: C-SSRS Short Version: [place] Suicide Severity Rating Scale (Do this one [...] a wound clinic the other day. This customs entry writer spoke to intake with [facility] however the only information provided is that patient is served by the [facility] location and receives usp, physical therapy, and social work and the fax number for discharge paperwork was provided. Interventions Psychosocial assessment completed. Provided supportive services. Provided education regarding the role of social work. Plan It is anticipated patient will return home with family and resume services through [facility]. Martha Gardiner 11/15/2023 * Jerri Toledo R.N., [place], [facility] - 11/15/2023 10:54 AM CDTAssociated [...] and visits for hematuria. Patient presented at [facility] yesterday because of bleeding around his [place] [...] vomiting, no abdominal pain. Patient presented at [facility] where urology was contacted, manual bladder irrigation with normal saline was performed, and patient was started on CBI. Patient transferred to [place] for further management. WOUND ASSESSMENT: Wound Type: Pressure Injury IP Pressure Injury Staging: Stage 3 Wound Location: Coccyx Wound Orientation: Mid Wound Tunnel/Induration: Length 1 cm, Width 0.5 cm, and Depth 0.3 cm. Wound Bed Tissue: Red and Granulation tissue 100% Leslee-Wound Skin: Blanchable erythema, Maceration, and [place] PLAN: COCCYX: DAILY 1. Cleanse wound with [...] sliding down in chair. Please contact [facility] RNs if you have any question or concerns regarding wound care. Jerri Toledo R.N., LYNNE at [phone] Starla Méndez R.N., CWCN at [phone] * Zachery Tanner, ARUN, C.N.P., M.S. - [...] follows with Medical Oncology Dr. Tan in [place], [place]. Right hydronephrosis and right atrophic kidney [...] 08/30. Currently undergoing outpatient hyperbaric O2 in [facility]. Mr. Vega currently admitted to [facility] in the setting of recurrent gross hematuria. He wasseen in evaluation at [facility] Emergency Department in the setting of [...] in comparison to historical imaging. Ultimately [address] catheter was placed and patient was hand irrigated and initiated on CBI.Patient was transferred to [facility] for ongoing management. Urinalysis 11/15/2023 [...] undergoing outpatient HBO (hyperbaric oxygenation therapy) in [facility]. Recommend to continue HBO in [...] hematuria. Outpatient appointment scheduled on 12/07/2023 in [facility] with Urology. Could consider discussion about catheter removal/formal voiding trial in the outpatient setting as to limit catheter irritation/potential infection risk contributing to hematuria. Significant pyuria on urinalysis in the setting of his gross hematuria would recommend urine culture. 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 Tan in [place], [place]. Per subjective report today undetectable PSA. [...] discussed with Dr. Valdez. Zachery Tanner APRN PHYSICAL BIOCHEMIST Associated attestation - Manav Valdez M.D. - [...] Summary: Pt is a direct admit from [facility] ED. He has chronic indwelling catheter, with prostate cancer history. He noticed urine was bloody red. While being seen in [facility], 3 waycatheter was inserted and CBI started. [...] filter and chronic pressure wounds presented to [facility] 11/14/23 gross hematuria including around his indwelling [...] Procedure visit Department of Urology in [address] [phone] Burke Strauss M.D. [address] [place] [phone] Discharge Disposition: Home or Self Care 01/11/2024 10:00 AM CDT Office Visit Department of Urology in [address] [address] Burke Strauss M.D. [address] [place] [phone] Discharge Disposition: Home or Self Care Pending Results Name Type Priority Associated Diagnoses Date /Time Prepare Red Blood Cells, 1 Units Blood Bank Routine 11/14/2023 11:09 AM CDT Scheduled Referrals Name Type Priority Associated Diagnoses Orde r Schedule [facility] referral Outpatient Referral Routine Hematuria Gross [...] Candelaria Rivas D.O. LAB BLOOD ADD-ON [facility] [address] [place] [address], [facility] MKTO [facility] [place] [address] * (ABNORMAL) Basic Metabolic Panel (11/17/2023 7:24 [...] CDT Candelaria Rivas D.O. LAB BLOOD ADD-ON [facility] [address] [place] [address] * Glucose, POCT (11/17/2023 6:45 AM CDT) Glucose, POCT, B 107 70 - 140 mg/dL 11/17/2023 6:45 AM CDT MKTO Blood 11/17/2023 6:45 AM CDT 11/17/2023 7:03 AM CDT Generic Rals LAB POCT ORDERABLES- MANUAL Performing Organization Address City/[facility] Co de Phone Number [facility] [address] [place] [phone] * (ABNORMAL) Hemoglobin (11/16/2023 4:43 PM CDT) Hemoglobin 9.2(L) 13.2 - 16.6 g/dL 11/16/2023 5:13 PM CDT MKTO Blood (Blood, Venous) 11/16/2023 4:43 PM CDT 11/16/2023 5:10 PM CDT Madelyn Cesar D.O. LAB BLOOD ADD-ON [facility] [address] [place] [address] * (ABNORMAL) Comprehensive Metabolic Panel (11/16/2023 6:25 [...] Rashawn Vences M.D. LAB BLOOD ADD-ON [facility] [address] [place] [address], [facility] MKTO [facility] in [place] [address] [place] [address] * (ABNORMAL) CBC with Differential, Blood (11/16/2023 [...] CDT Rashawn Vences M.D. LAB BLOOD ADD-ON [facility] [address] [place] [address], [facility] MKTO [facility] in [place] [address] [place] [address] * Transfuse Red Blood Cells : (11/15/2023 6:35 PM CDT) Madelyn Cesar D.O. BLOOD TRANSFUSION OR DERABLES * Transfuse Red Blood Cells : , 1 Units (11/15/2023 6:35 PM CDT) Madelyn Cesar D.O. BLOOD TRANSFUSION OR DERABLES * (ABNORMAL) Comprehensive Metabolic Panel (11/15/2023 7:31 AM CDT) [facility] Potassium, P 4.2 3.6 - 5.2 mmol/L [...] Sylvie Wright M.D. LAB BLO OD ADD-ON [facility] [address] [place] [address], [facility] [place] [address] * (ABNORMAL) CBC with Differential, Blood (11/15/2023 [...] Sylvie Wright M.D. LAB BLO OD ADD-ON [facility] [address] [place] [address], [facility] MK[facility] [place] [address] * ECG 12 Lead (11/15/2023 6:47 AM CDT) Ventricular Rate ECG/Min 65 BPM MUSE MD Interval 144 ms MUSE QRSD Interval 76 ms MUSE QT Interval 430 ms MUSE QTC Interval 447 ms MUSE P Michael -7 degrees MUSE R Michael 9 degrees MUSE T Wave Michael 19 degrees MUSE 11/15/2023 6:47 AM CDT [...] M.D. ECG ORD ERABLES Performing Organization Address City/[facility]/ZIP Co de Phone Number MUSE NA * [...] LAB URI NE ORDERABLES Performing Organization Address [facility] Co de Phone Number [facility] [address] [place] [address], [facility] MKTO [facility] in [place] [address] [place] [address] * (ABNORMAL) Urinalysis with Microscopic if Indicated [...] to determine due to color interference Specific Titus SEE COMMENT 1.001 - 1.035 11/15/2023 8:03 AM CDT MKTO Comment:Unable to determine due to color interference Urobilinogen SEE COMMENT 0.2 - 1.0 mg/dL 11/15/2023 8:03 AM CDT MKTO Comment:Unable to determine due to color interference Urine (Urine, Midstream) 11/15/2023 6:25 AM CDT 11/15/2023 6:34 AM CDT Sylvie Wright M.D. LAB URI NE ORDERABLES Performing Organization Address [facility] Co de Phone Number [facility] [address] [place] [address] * Bacterial Culture, Aerobic + Susceptibility, Urine (11/15/2023 6:24 AM CDT) Urine Culture Urogenital microbiota, susceptibilities not performed per laboratory criteria. 11/16/2023 11:36 AM CDT [facility] Urine (Urine, Indwelling Catheter) 11/15/2023 6:24 AM CDT 11/15/2023 9:29 AM CDT Comment:Specimen Source Site : Urine Zachery Tanner APRN, C.N.P., M.S. 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
--- OUTSIDE RECORDS SUMMARY | 2024-01-06 11:29 | XMS_ITS | Encounter Summary ---
Author Organization [facility] Address [address] [place] [address] Care Team Providers Care Grave Digger Name Role Phone Elsewhere, Pcp Primary Care Provider Unavailabl e Encounter Details Date Type Department Care Team (Latest Contact Info) Description 12/07/2023 12:19 PM CDT - 12/07/2023 11:59 PM CDT Hospital Encounter Department of Laboratory Medicine in [place], [place] [address] [place] [phone] Burke Strauss M.D. [facility] [place] [phone] Anemia; Hematuria Gross; Retention Urinary Chronic Discharge [...] [facility] to [facility] 11/15/2023 Sex [...] CDT Procedure visit Department of Urology in [address] [address] Burke Strauss M.D. [address] [place] [address] Discharge Disposition: Home or Self Care 01/11/2024 10:00 AM CDT Office Visit Department of Urology in [place] [address] [place] [address] Burke Strauss M.D. [address] [place] [phone] Discharge Disposition: Home or Self Care documented [...] [facility]/ZIP Co de Phone Number [facility] [address] [place] [address], [place] [facility] [place] [address] [place] [address] * (ABNORMAL) Hemoglobin (12/07/2023 12:25 PM CDT) Hemoglobin 9.2(L) 13.2 - 16.6 g/dL 12/07/2023 12:33 PM CDT NPR[facility] Blood (Blood, Venous) 12/07/2023 12:25 PM CDT 12/07/2023 12:27 PM CDT Burke Strauss M.D. LAB BLOOD ADD-ON [facility] [address] [place] [address], [place] [address] [place] [address] documented in this encounter Visit Diagnoses Diagnosis Anemia Hematuria Gross Retention Urinary Chronic documented in this encounter Care Teams Grave Digger Relationship Specialty Start Date End Date Elsewhere, Pcp PCP - General Internal Medicine 08/13/23 documented as of this encounter
--- OUTSIDE RECORDS SUMMARY | 2024-01-06 11:29 | XMS_ITS | Encounter Summary ---
Author Organization [facility] Address [address] [place] [address] Care Team Providers Care Circus Performer Name Role Phone Elsewhere, Pcp Primary Care Provider Unavailabl e Reason for Referral * Outpatient (Routine) - Closed Specialty Diagnoses / Procedures Referred By Leyla rosenthal Referred To Contact Burke Lucero M.D. [address] [place] [phone] [facility] Referral ID Status Reason Start Date Expiration Date Visits Re quested Visits Authorized [id number] Closed 12/07/2023 06/07/2025 1 1 Reason for Visit * Reason Comments Follow-up Discuss jon cathet er * Outpatient (Routine) - Closed Specialty Diagnoses / Procedures Referred By Leyla rosenthal Referred To Contact Burke Lucero M.D. [address] [place] [phone] [facility] Referral ID Status Reason Start Date Expiration Date Visits Re quested Visits Authorized [id number] Closed 11/09/2023 05/10/2025 1 1 Encounter Details Date Type Department Care Team (Late st Contact Info) Description 12/07/2023 10:30 AM CDT Office Visit Department of Urology in [place], [place] [address] [place] [phone] Burke Strauss M.D. [address] [place] [phone] Hematuria Gross (Primary Dx); Radiation Therapy Cystitis With Hematuria; Anemia; Retention Urinary Chronic Discharge Disposition: Home or Self Care Social History Tobacco Use Types Packs/Day Years Used Date Smoking Tobacco: Never Smokeless Tobacco: Never [facility] Utilities Answer Date Recorded In the past 12 months has [facility] [employer], gas, oil, or water [employer] threatened to shut off services in your [...] situation today? I have a [facility] place to live 11/15/2023 Sex and Gender Information Value Date Recorded Sex Assigned at Not on file Gender Identity Not on file Sexual Orientation Not on file documented as of this encounter Progress Notes * Keli Denotn, RJonahN. - 12/07/2023 10:30 AM CDT Patient [...] sterile technique anew 22 Fr. (Ref # [id number]) Silicone 3- way catheter placed with assistance [...] was inadvertently cut. He currently has a22 Slovenian silicone three-way catheter. He will return tomorrow [...] CDT Procedure visit Department of Urology in [address] [phone] Burke Strauss M.D. [address] [place] [phone] Discharge Disposition: Home or Self Care 01/11/2024 10:00 AM CDT Office Visit Department of Urology in [address] [phone] Burke Strauss M.D. [address] [place] [phone] Discharge Disposition: Home or Self Care Scheduled [...] M.D. LAB BLOOD ADD-ON Performing Organization Address City/[facility]/ZIP Co de Phone Number [facility] [address] [place] [address], [facility] NPRG [place] [address] [place] [address] * (ABNORMAL) Hemoglobin (12/07/2023 12:25 PM CDT) Hemoglobin 9.2(L) 13.2 - 16.6 g/dL 12/07/2023 12:33 PM CDT NPRG Blood (Blood, Venous) 12/07/2023 12:25 PM CDT 12/07/2023 12:27 PM CDT Burke Strauss M.D. LAB BLOOD ADD-ON Performing Organization Address City/[facility]/ZIP Co de Phone Number [facility] [address] [place] [address], [place] NPR[facility] [place] [address] [place] [address] documented in this encounter Visit Diagnoses Diagnosis Hematuria Gross- Primary Radiation Therapy Cystitis With Hematuria Anemia Retention Urinary Chronic documented in this encounter Care Teams Circus Performer Relationship Specialty Start Date End Date Elsewhere, Pcp PCP - General Internal Medicine 08/13/23 documented as of this encounter
--- OUTSIDE RECORDS SUMMARY | 2024-01-06 11:29 | XMS_ITS | Encounter Summary ---
Author Organization [facility] Address [address] [place] [address] Care Team Providers Care Printing Worker Supervisor Name Role Phone Elsewhere, Pcp Primary Care Provider Unavailabl e Encounter Details Date Type Department Care Team (Late st Contact Info) Description 11/15/2023 10:40 AM CDT Ancillary Procedure Department of Wound Ostomy Social History Tobacco Use Types Packs/Day Years Used Date Smoking Tobacco: Never Smokeless Tobacco: Never [facility] Utilities Answer Date Recorded In the past 12 months has th e electric, gas, oil, or water [employer] threatened to shut off services in your [...] a [facility] place to live 11/15/2023 Sex and Gender Information Value Date Recorded Sex Assigned at Not on file Gender Identity Not on file Sexual Orientation Not on file documented as of this encounter Plan of Treatment Upcoming Encounters Date Type Department Care Team (Latest Contact Info) Description 01/11/2024 9:00 AM CDT Procedure visit Department of Urology in [place] [address] [place] [address] Burke Strauss M.D. [address] [place] [phone] Discharge Disposition: Home or Self Care 01/11/2024 10:00 AM CDT Office Visit Department of Urology in [place] [address] [place] [address] Burke Strauss M.D. [address] [place] [phone] Discharge Disposition: Home or Self Care documented [...] on filedocumented in this encounter Care Teams Printing Worker Supervisor Relationship Specialty Start Date End Date Elsewhere, Pcp PCP - General Internal Medicine 08/13/23 documented as of this encounter
--- OUTSIDE RECORDS SUMMARY | 2024-01-06 11:29 | XMS_ITS | Encounter Summary ---
Author Organization [facility] Address [address] [place] [address] Care Team Providers Care Manager Pharmacy Name Role Phone Elsewhere, Pcp Primary Care Provider Unavailabl e Reason for Referral * Outpatient (Routine) - Closed Specialty Diagnoses / Procedures Referred By Leyla t Referred To Contact Urology Burke Strauss M.D. [address] [place] [phone] [facility] Referral ID Status Reason Start Date Expiration Date Visits Re quested Visits Authorized [id number] Closed 11/09/2023 05/10/2025 1 1 * Outpatient (Routine) - Authorized Specialty Diagnoses / Procedures Referred By Contaraceli t Referred To Contact Diagnoses Retention Urinary Chronic Procedures URO Urethral cath change (UCC) Burke Strauss M.D. [address] [place] [phone] [facility] Region Referral ID Status Reason Start Date Expiration Date V isits Requested Visits Authorized [id number] Authorized 11/09/2023 11/08/2024 15 15 Reason for Visit * Reason Comments Consult Discuss catheter thomas nges * Appointment Request (Routine) - Closed Specialty Diagnoses / Procedures Referred By Leyla rosenthal Referred To Contact Urology Referral ID Status Reason Start Date Expiration Date Visits Re quested Visits Authorized [id number] Closed 10/27/2023 10/26/2024 1 1 Encounter Details Date Type Department Care Team (Late st Contact Info) Description 11/09/2023 11:00 AM CDT Office Visit Department of Urology in [place], [place] [address] [place] [phone] Burke Strauss M.D. [address] [place] [phone] Primary Malignant Neoplasm Of Prostate (HCC) (Primary Dx); Retention Urinary Chronic; Hematuria Gross Discharge Disposition: Home or Self Care Social History Tobacco Use Types Packs/Day Years Used Date Smoking Tobacco: Never Smokeless Tobacco: Never [facility] [employer] Answer Date Recorded In the past 12 months [facility], gas, oil, or water [employer] threatened to shut off services in your [...] ILLNESS Patient presents to establish care from [facility]. He has multiple urologic issues [...] the past few days. Original plan from [place] was to exchange his left nephrostomy tube in 3 months, due 12/14/2023. He reports getting good output from the left neph tube without hematuria. 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 He has completed 19 of 45 planned treatments and expects to finish that course in early December. Metastatic prostate cancer is being managed by [facility], Dr. Mireya Tan. Release of [...] an antegrade nephrogram through Interventional Radiology in [place] prior to nephrostomy tube removal. documented in this encounter Plan of Treatment Upcoming Encounters Date Type Department Care Team (Latest Contact Info) Description 01/11/2024 9:00 AM CDT Procedure visit Department of Urology in [address] [phone] Burke Strauss M.D. [address] [place] [phone] Discharge Disposition: Home or Self Care 01/11/2024 10:00 AM CDT Office Visit Department of Urology in [address] [address] Burke Strauss M.D. [address] [place] [phone] Discharge Disposition: Home or Self Care Scheduled [...] Gross documented in this encounter Care Teams Manager Pharmacy Relationship Specialty Start Date End Date Elsewhere, Pcp PCP - General Internal Medicine 08/13/23 documented as of this encounter
--- OUTSIDE RECORDS SUMMARY | 2024-01-06 11:29 | XMS_ITS | Encounter Summary ---
Author Organization [facility] Address [address] [place] [address] Care Team Providers Care Cereal Chemist Name Role Phone Elsewhere, Pcp Primary Care Provider Unavailabl e Encounter Details Date Type Department Care Team (Late st Contact Info) Description 10/27/2023 Clinical Communication Department of Urology in [place], [place] [address] [place] [phone] Burke Strauss M.D. [address] [place] [address] Social History Tobacco Use Types Packs/Day Years Used Date Smoking Tobacco: Never Smokeless Tobacco: Never [facility] Utilities Answer Date Recorded In the past 12 months has e electric, gas, oil, or water [employer] threatened to shut off services in your [...] 2:15 PM CDT Patient follows urology in [place] but would like to transfer his care to [place] as it is closer to home. It looks like for Hematuria. Is this patient ok to see you? He has a catheter in and will need cath changes going forward. documented in this encounter Plan of Treatment Upcoming Encounters Date Type Department Care Team (Latest Contact Info) Description 01/11/2024 9:00 AM CDT Procedure visit Department of Urology in [place] [address] [place] [address] Burke Strauss M.D. [address] [place] [phone] Discharge Disposition: Home or Self Care 01/11/2024 10:00 AM CDT Office Visit Department of Urology in [address] [phone] Burke Strauss M.D. [address] [place] [phone] Discharge Disposition: Home or Self Care documented as of this encounter Visit Diagnoses Not on filedocumented in this encounter Care Teams Cereal Chemist Relationship Specialty Start Date End Date Elsewhere, Pcp PCP - General Internal Medicine 08/13/23 documented as of this encounter
--- OUTSIDE RECORDS SUMMARY | 2024-01-06 11:29 | XMS_ITS | Encounter Summary ---
Author Organization [facility] Address [address] [place] [address] Care Team Providers Care Delivery Manager Name Role Phone Elsewhere, Pcp Primary Care Provider Unavailabl e Reason for Visit * Reason Onset Date Comments Oncology records request 11/10/2023 Encounter Details Date Type Department Care Team (Latest Contact Info) Description 11/10/2023 Clinical Communication Department of Urology in [place], [place] [address] [place] [phone] Burke Strauss M.D. [address] [place] [phone] Oncology records request Social History Tobacco Use [...] as planned. * Telephone Encounter - Gisela Llody R.M.AJonah - 11/10/2023 2:15 PM CDT Release of Information was filled out and faxed to [facility], Dr. Mireya Tan clinic per Dr. Strauss. Will wait for these to come through and notify Dr. Strauss for his review. [facility] documented in this encounter Plan of Treatment Upcoming Encounters Date Type Department Care Team (Latest Contact Info) Description 01/11/2024 9:00 AM CDT Procedure visit Department of Urology in [place], [place] [address] [place] [address] Burke Strauss M.D. [address] [place] [phone] Discharge Disposition: Home or Self Care 01/11/2024 10:00 AM CDT Office Visit Department of Urology in [place] [address] [place] [address] Burke Strauss M.D. [address] [place] [phone] Discharge Disposition: Home or Self Care documented as of this encounter Visit Diagnoses Not on filedocumented in this encounter Care Teams Delivery Manager Relationship Specialty Start Date End Date Elsewhere, Pcp PCP - General Internal Medicine 08/13/23 documented as of this encounter
--- OUTSIDE RECORDS SUMMARY | 2024-01-06 11:30 | XMS_ITS | Encounter Summary ---
Author Organization [facility] Address [address] [place] [address] Care Team Providers Care Keg Varnisher Name Role Phone Elsewhere, Pcp Primary Care Provider Unavailabl e Reason for Visit * Reason Comments Catheter Care Plan Encounter Details Date Type Department Care Team (Late st Contact Info) Description 10/14/2023 Documentation Department of Urology in [place], [place] [address] [place] [address] Paula Hernandez M.D. [address] [place] [phone] Catheter Care Plan Social History Tobacco Use Types Packs/Day Years Used Date Smoking Tobacco: Never Smokeless Tobacco: Never [facility] Utilities Answer Date [...] living situation today? I have a [facility] place to live 09/09/2023 Sex and Gender Information Value Date Recorded Sex Assigned at Not on file Gender Identity Not on file Sexual Orientation Not on file documented as of this encounter Progress Notes * Ashleigh Ferreira RJonahN. - 10/14/2023 2:05 PM CDT Treatment Summary and Care Plan - Catheter Exchange General Information [facility]/ Patient Name: Kalen Vega Date: 1940 Health Care Provider(s) Medical Provider(s) Cesar Mccollum M.D. Institution: No address on file [place], [place] Urology Provider(s) Chief Urology residents Last seen by Paula Hernandez M.D. Institution: [facility] Treatment Summary Diagnosis Hydronephrosis; hematuria; metastatic prostate cancer; radiation cystitis Treatment Surgery []Yes [x] No Surgery Date(s) Surgical Procedure/Location/Findings Current Treatment Information/Follow-up Care Plan Frequency of Catheter Changes (i.e. every 4 weeks) every 4 weeks Catheter Information Type: Coude red rubber Size:20F Reference #: [id number] Catheter Prescription Expires NA Last seen by [...] CDT Procedure visit Department of Urology in [place] [address] [place] [address] Burke Strauss M.D. [address] [place] [phone] Discharge Disposition: Home or Self Care 01/11/2024 10:00 AM CDT Office Visit Department of Urology in [place] [address] [place] [address] Burke Strauss M.D. [address] [place] [phone] Discharge Disposition: Home or Self Care documented as of this encounter Visit Diagnoses Not on filedocumented in this encounter Care Teams Keg Varnisher Relationship Specialty Start Date End Date Elsewhere, Pcp PCP - General Internal Medicine 08/13/23 documented as of this encounter
--- OUTSIDE RECORDS SUMMARY | 2024-01-06 11:30 | XMS_ITS | Encounter Summary ---
Author Organization [facility] Address [address] [place] [address] Care Team Providers Care Environmental Compliance Inspector Name Role Phone Elsewhere, Pcp Primary Care Provider Unavailabl e Reason for Visit * Reason Comments Urinary Retention * Outpatient (Routine) - Closed Specialty Diagnoses / Procedures Referred By Contaraceli t Referred To Contact Diagnoses Hematuria Procedures URO Urethral cath change (UCC) Paula Hernandez M.D. [address] [place] [phone] [facility] Referral ID Status Reason Start Date Expiration Date Visits Re quested Visits Authorized [id number] Closed 09/15/2023 09/14/2024 1 1 Encounter Details Date Type Department Care Team (Late st Contact Info) Description 10/14/2023 1:00 PM CDT Procedure visit Department of Urology in [place], [place] [address] [place] [phone] Paula Hernandez M.D. [address] [place] [phone] Khadra Miller R.N. [address] [place] [phone] Hematuria Social History Tobacco Use Types Packs/Day [...] your living situation today? I have a [facility] place to live 09/09/2023 Sex and [...] Procedure visit Department of Urology in [address] [phone] Burke Strauss M.D. [address] [place] [phone] Discharge Disposition: Home or Self Care 01/11/2024 10:00 AM CDT Office Visit Department of Urology in [address] [phone] Burke Strauss M.D. [address] [place] [phone] Discharge Disposition: Home or Self Care documented as of this encounter Visit Diagnoses Diagnosis Hematuria documented in this encounter Care Teams Environmental Compliance Inspector Relationship Specialty Start Date End Date Elsewhere, Pcp PCP - General Internal Medicine 08/13/23 documented as of this encounter
--- OUTSIDE RECORDS SUMMARY | 2024-01-06 11:30 | XMS_ITS | Encounter Summary ---
Author Organization [facility] Address [address] [place] [address] Care Team Providers Care Brick Tender Name Role Phone Elsewhere, Pcp Primary [...] CDT Procedure visit Department of Urology in [place] [address] [place] [phone] Burke Strauss M.D. [facility] [place] [phone] Discharge Disposition: Home or Self Care 01/11/2024 10:00 AM CDT Office Visit Department of Urology in [place] [address] [place] [address] Burke Strauss M.D. 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
--- OUTSIDE RECORDS SUMMARY | 2024-01-06 11:30 | XMS_ITS | Data Portability ---
Author Organization [facility], [facility] Address [address] [place] [address] Care Team Providers Care Kitchenhand Name Role Phone MASOUD SAUER Primary Care Provider Assessment No assessment recorded. Plan of Treatment Reminders Order Date Submit Date Provider Last Modified By Organization Details Last Modified Time Details Appointments None recorded . Lab urinalys is, dipstick 2023 024 [email or web address] [facility], [address] [place], [address], 4 15:08:54 culture, urine 2023 024 [facility], [address], [place], [address], 4 10:11:11 Referral None recorded . Procedures None recorded . Surgeries cystosco py with ureteral stent exchange (SURG) 2021 022 [email or web address] Not available 16:50:47 cystosco py with ureteral stent exchange (SURG) 2021 022 [email or web address] Not available 15:46:30 Imaging None recorded . Medication Orders Myrbetri q 50 mg tablet,e xtended release 2021 022 [place] [id number], [address] [place], [place], [phone], 2 17:50:02 Bactrim DS 800 mg-160 mg tablet 2023 024 [email or web address] [facility] #96204, [address] [place], [place], [phone], 16:19:28 Patient TargetsNo targets recorded. Patient InstructionsNo [...] for provi sydni revie w. Not Available [facility] [address], [place], [address], 06/25/2023 10:11:11 06/23/19 24 06/23/2023 urina lysis , dipst ick Color-Status Red Not Available [facility] [address], [place], [address], 06/23/2023 15:08:10 06/23/19 24 06/23/2023 urina lysis , dipst ick pH-Status 7.5 Not Available [facility] [address], [place], [address], 06/23/2023 15:08:10 06/23/19 24 06/23/2023 urina lysis , dipst ick Protein-Stat us >=9.0 Not Available [facility] [address], [place], [address], 06/23/2023 15:08:10 06/23/19 24 06/23/2023 urina lysis , dipst ick Nitrates-Sta tus negati ve Not Available [facility] [address], [place], [address], 06/23/2023 15:08:10 06/23/19 24 06/23/2023 urina lysis , dipst ick Blood-Status Large Not Available [facility] [address], [place], [address], 06/23/2023 15:08:10 06/23/19 24 06/23/2023 urina lysis , dipst ick Leuko-Status Negati ve Not Available [facility] [address], [place], [address], 06/23/2023 15:08:10 06/23/19 24 06/23/2023 urina lysis , dipst ick Specimen Type Voided Not Available [facility] [address], [place], [address], 06/23/2023 15:08:10 07/04/19 24 07/01/2023 CT, abdom en + pelvi s, w/o contr ast No observ ation record ed. [email or web address] [facility] [address], [place], [address], 09/01/2023 14:40:29 07/18/19 24 07/18/2023 XR, kidne y + urete r + bladd er No observ ation record ed. [email or web address] [facility] [address], [place], [address], 07/22/2023 15:56:19 Result Notes None recorded. Procedures Surgical History Date Name Laterality Status Provider Name and Address Organization Details Recorded Time Bladder Scan completed Rabia Mariaelena [facility] 06/23/2023 15:08:00 Cystoscopy completed Nicola Ware MD [address], [place], [address], [facility] 12/30/2021 17:11:17 Colonoscopy completed Nicola Ware MD [address] [facility] [address], [place], [address], [facility] 12/30/2021 17:11:22 Imaging Results Imaging Date Name Status LastModified by Organiz ation Details LastModified Time 07/01/2023 CT, abdomen + pelvis, w/o contrast completed [address] [facility] [address] [facility], [place], [address], 09/01/2023 14:40:29 07/18/2023 XR, kidney + ureter + bladder completed [address], [place], [address], 07/22/2023 15:56:19 Procedure Notes None recorded. Medical [...] COLONOSCO PY PREP INSTRUCTI ONS RECEIVED FROM [facility] active Not Available Not Available No t Available furosemide 20 mg tablet TAKE 1 TABLET BY MOUTH DAILY active Not Available Not Available No t Available cefuroxime axetil 500 mg tablet active Not Available Not Available No t Available polyethylen e glycol 3350 17 gram/dose oral powder MIX AND DRINK DIRECTED IN COLONOSCO [employer] ONS RECEIVED FROM [facility] active Not Available Not Available No [...] Updated DateTime 12/30/2021 177.8 cm 27.4 kg/m2 98662.14 g Nicola Ware MD [address] [place] [address], [address] 12/30/2021 17:10:12 Date Recorded Body height Body mass index (BMI) Body weight Provider Name and Address Organization Details Last Updated DateTime 03/12/2022 177.8 cm 27.4 kg/m2 78879.14 g Rabia Ferrell [facility] 03/12/2022 13:55:47 Social History Question Answer Notes LastModified by Organizat ion Details LastModified Time Tobacco Smoking Status Never Smoker Nicola Ware MD [address] [place] [address],[address], [address], [facility] 12/30/2021 17:11:00 What [...] Diagnosis/Indication Diagnosis SNOMED-CT Code Diagnosis ICD10 Code [id number] Nicola Ware MD [facility] [address] [place] [address] 12/30/2021 16:01:19 01/01/2022 09:36:50 Increased frequency of urination 957558017 R35.0 Malignant tumor of prostate 825928798 C61 Hydronephrosis 61530248 N13.30 [id number] Aliza Landeros [facility] [address] [place] [address] 03/12/2022 13:13:50 03/15/2022 14:00:47 Increased frequency of urination 660094794 R35.0 Malignant tumor of prostate 809647222 C61 Hydronephrosis 59689772 N13.30 [id number] Nicola Ware MD [facility] [address] [place] [address] 06/23/2023 14:16:52 06/24/2023 08:40:38 Blood in urine 49897710 R31.9 Health Concerns Section Related Observation LastModified by Organization Detai ls LastModified Time None Recorded Concern Status LastModified by Organization Details LastModified Time None Recorded Advance Directives Directive None Recorded Payers Encounter Date Sequence Insurance Name Policy Number Policy Krishnan Covered Member ID Krishnan Member ID Guarantor Name 12/30/2021 1 [employer] (MEDICARE REPLACEMENT/ ADVANTAGE - PPO) [id number] José Miguel D Braucher [id number] José Miguel D Braucher 03/12/2022 1 [employer] (MEDICARE REPLACEMENT/ ADVANTAGE - PPO) [id number] José Miguel D Braucher [id number] José Miguel D Braucher 06/23/2023 1 [employer] (MEDICARE REPLACEMENT/ ADVANTAGE - PPO) [id number] José Miguel Srinivasan Braucher [id number] José Miguel D Braucher Notes Date Note Type Note Provider Name and Address Organization Details Recorded Time 12/30/2021 text/html HPI Notes: Excer pt from hospital consultation... 81 y.o. year old male who was admitted to [facility] for gross hematuria & CT [...] MD [address] [facility] [address] [address], [place], [address], [facility] 12/30/2021 23:07:10 03/12/2022 text/html HPI Notes: Excer pt from hospital consultation... 81 y.o. year old male who was admitted to [facility] for gross hematuria & CT [...] some of the history. Nicola Ware MD [address] [place] [address],[address], [place], [address], [facility] 03/12/2022 17:21:47 06/23/2023 text/html HPI Notes: 83 Y male here after calling triage this AM with hematuria/pain with urination. Patient has stent in place, last exchange 02/08/2022. 06/23/23 visit completed by Curry Ware MD [address] [place] [address],[address], [place], [address], [facility] 06/23/2023 16:19:33
--- OUTSIDE RECORDS SUMMARY | 2024-01-06 11:30 | XMS_ITS | Encounter Summary ---
Author Organization [facility] Address [address] [place] [address] Care Team Providers Care Thread Spinner Name Role Phone Elsewhere, Pcp Primary Care Provider Unavailabl e Encounter Details Date Type Department Care Team (Latest Contact Info) Description 08/13/2023 Intake [facility] Social History Tobacco Use Types Packs/Day Years Used Date Smoking Tobacco: Never Smokeless Tobacco: Never [facility] Utilities Answer Date Recorded In [...] visit Department of Urology in [place] [address] [place] [address] Burke Strauss M.D. [facility] [place] [address] Discharge Disposition: Home or Self Care 01/11/2024 10:00 AM CDT Office Visit Department of Urology in [place] [address] [place] [address] Burke Strauss M.D. 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
--- OUTSIDE RECORDS SUMMARY | 2024-01-06 11:30 | XMS_ITS | Encounter Summary ---
Author Organization [facility] Address [address] [place] [address] Care Team Providers Care Warehouse Order Picker Name Role Phone Elsewhere, Pcp Primary Care Provider Unavailabl e Encounter Details Date Type Department Care Team (Late st Contact Info) Description 09/27/2023 Clinical Communication Department of Urology in [place], [place] [address] [place] [address] Paula Hernandez M.D. [address] [place] [address] Social History Tobacco Use Types Packs/Day Years Used Date Smoking Tobacco: Never Smokeless Tobacco: Never [facility] Utilities Answer Date Recorded In the past 12 months has [facility] [employer], gas, oil, or water [employer] threatened to shut off services in [...] [facility] place to live 09/09/2023 [...] CDT Procedure visit Department of Urology in [address] [address] Burke Strauss M.D. [address] [place] [address] Discharge Disposition: Home or Self Care 01/11/2024 10:00 AM CDT Office Visit Department of Urology in [place], [place] [address] [place] [address] Bruke Strauss M.D. [address] [place] [address] Discharge Disposition: Home or Self Care documented as of this encounter Visit Diagnoses Not on filedocumented in this encounter Care Teams Warehouse Order Picker Relationship Specialty Start Date End Date Elsewhere, Pcp PCP - General Internal Medicine 08/13/23 documented as of this encounter
--- OUTSIDE RECORDS SUMMARY | 2024-01-06 11:30 | XMS_ITS | Clinical Summary ---
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 GWC=119.87 Bladder mass 02/29/2020 04/30/2020 Hematuria 02/29/2020 03/05/2020 Acute deep vein thrombosis (DVT) 02/29/2020 11/20/2020 S/P coronary angioplasty 11/03/2016 Chest pain 09/15/2016 03/05/2020 Elevated prostate specific antigen (PSA) 10/06/2010 03/05/2020 Hip arthritis 10/06/2010 03/05/2020 Colon polyp 07/15/2010 PATRICE (acute kidney injury) Obstructive uropathy 020 Encounters Date Type Department Care Team Description 12/26/2023 11:30 AM CDT Home Care Visit [address] [address] Doreen Hussein, JAMEL SN - HOME VISIT 12/23/2023 11:00 AM CDT Home Care Visit [address] [address] Raffy Carter, PT PT - DISCIPLINE DISCHARGE 12/19/2023 10:00 AM CDT Home Care Visit [address] [address] Doreen Hussein RN SN - HOME VISIT 12/16/2023 11:00 AM CDT Home Care Visit [address] [address] Raffy Carter, PT PT - HOME VISIT 12/13/2023 Orders Only [facility] Scanner 1 scan: (1-Ord) [facility], XR SACRUM COCCYX MIN 2V, 12/13/2023 12/07/2023 Telephone [facility] [address] [place] [address] Cesar Mccollum MD Follow Up 12/05/2023 Home Care Visit [address] [address] Doreen Hussein RN SN - HOME VISIT 12/02/2023 10:30 AM CDT Home Care Visit [address] [address] Raffy Carter, PT PT - REASSESSMENT 12/02/2023 Plan of Care Documentation [address] [address] 11/30/2023 4:00 PM CDT Home Care Visit [address] [address] Doreen Hussein, RN SN - OASIS RECERTIFICATION 11/30/2023 10:30 AM CDT Office Visit [facility] [address] [place] [address] Cesar Mccollum MD Follow Up; Medication Management (Discuss plavix - not currently taking it) 11/30/2023 Travel 11/25/2023 11:00 AM CDT Home Care Visit [address] [address] Raffy Carter, PT PT - INITIAL ASSESSMENT 11/23/2023 8:00 AM CDT Home Care Visit [address] [address] Brittanie Prieto, JAMEL SN - HOME VISIT 11/21/2023 3:30 PM CDT Home Care Visit [address] [address] Rigo Heart, JAMEL SN - OASIS RESUMPTION OF CARE 11/18/2023 Home Care Visit [address] [address] Rufina Cosby, RN CARE COORDINATION 11/14/2023 Home Care Visit [address] [address] Raffy Carter, PT PT - OASIS TRANSFER 11/11/2023 10:30 AM CDT Home Care Visit [address] [address] Raffy Carter, PT PT - HOME VISIT 11/09/2023 9:00 AM CDT Home Care Visit [address] [address] Barbara Fuentes RN SN - HOME VISIT 11/07/2023 Home Care Visit [address] [address] Rufina Cosby, RN CARE COORDINATION 11/04/2023 10:30 AM CDT Home Care Visit [address] [address] Raffy Carter, PT PT - HOME VISIT 10/31/2023 11:00 AM CDT Home Care Visit [address] [address] Doreen Hussein, JAMEL SN - HOME VISIT 10/28/2023 10:30 AM CDT Home Care Visit [address] [address] Raffy Carter, PT PT - HOME VISIT 10/25/2023 11:30 AM CDT Home Care Visit [address] [address] Raffy Carter, PT PT - REASSESSMENT 10/24/2023 11:00 AM CDT Home Care Visit [address] [address] Doreen Hussein, JAMEL SN - HOME VISIT 10/24/2023 10:00 AM CDT Home Care Visit [address] [address] Liz Fang [facility] COUNTER CHECKER - HOME VISIT 10/21/2023 12:00 PM CDT Home Care Visit [address] [address] Raffy Carter, PT PT - HOME VISIT 10/20/2023 10:35 AM CDT Office Visit [address] [address] Cesar Mccollum MD Follow Up; Concerns (Discuss protocol for hyperbaric treatment at hospital) 10/20/2023 Travel 10/19/2023 9:45 AM CDT Home Care Visit [address] [address] Rigo Heart, JAMEL SN - HOME VISIT 10/18/2023 Home Care Visit [address] [address] Milli Torre, RN CARE COORDINATION 10/17/2023 3:00 PM CDT Home Care Visit [address] [address] Raffy Carter, PT PT - HOME VISIT 10/17/2023 10:00 AM CDT Home Care Visit [address] [address] Liz Fang, LEAD APPLICATIONS DEVELOPER COUNTER CHECKER - INITIAL ASSESSMENT 10/12/2023 Telephone [facility] [address] [place] [address] Cesar Mccollum MD Questions 10/11/2023 7:15 AM CDT Home Care Visit [address] [address] Manav Montero, RN SN - WOUND/OSTOMY CHART CONSULT 10/10/2023 4:00 PM CDT Home Care Visit [address] [address] Deonna Oliveira, BAKERY TECHNICIAN PT - HOME VISIT 10/10/2023 10:30 AM CDT Home Care Visit [address] [address] Milli Torre, RN SN - HOME VISIT 10/08/2023 9:00 AM CDT Home Care Visit [address] [address] Justyna Hernandez, JAMEL SN - INITIAL ASSESSMENT 10/08/2023 Telephone [facility] [address] [place] [address] Cesar Mccollum MD Home Care (BP med parameters) 10/07/2023 11:30 AM CDT Home Care Visit [address] [address] Raffy Carter, PT PT - HOME VISIT 10/07/2023 Home Care Visit [address] [address] Milli Torre, RN CARE COORDINATION 10/06/2023 1:00 PM CDT Ancillary Procedure [facility] [address] [facility] [address] [place] [address] 10/06/2023 Travel from Last 3 Months Immunizations Name Administration Dates Next Due COVID-19 VACCINE SPIKEVAX (M ODERNA 50MCG/0.5ML) 12YO+ PFS 07/21/2023,03/08/2023 COVID-19 vaccine (e-Go aeroplanesBio NTech 30mcg/0.3mL) 12YO+ BIVALENT PF, MDV 09/13/2022,01/28/2022 COVID-19 vaccine (e-Go aeroplanesBio NTech 30mcg/0.3mL) 12YO+ DAYRON-SUCROSE PF, MDV 08/26/2021 COVID-19 vaccine ([employer] NTech 30mcg/0.3mL) PF, MDV 01/13/2021,06/17/2020,2020 Influenza, Inactivated [...] 01/09/2024 4:00 AM CDT Home Care Visit [address] [address] Doreen Hussein, JAMEL [address] [place] [address] 01/16/2024 4:00 AM CDT Home Care Visit [address] [address] Doreen Hussein RN [address] [place] [address] 01/23/2024 4:00 AM CDT Home Care Visit [address] [address] Doreen Hussein, JAMEL [address] [place] [address] Health Maintenance Due Date Last Done Comments Zoster (shingles) series for age 50+ (1 of 2) 1959 RSV vaccine for adults or (1 - 1-dose 75+ series) 2014 COVID-19 vaccine series ( season) 2023 07/21/2023, [...] Completed 4 Medical Devices Implanted Type Area Dock Coordinator Device Identifier Shelf Expiration Date Model / Serial / Lot Stent Uret [id number] - [id number] Implanted:Qty: 1 on 07/18/2023 by Nicola Ware MD at [facility] Right: Ureter [facility] 02/27/2026 [id number] / / [id number] Procedures Procedure Name Priority Date/Time Associated Diagnosis Comments SCAN-RADIOLOGY REPORT 12/13/2023 12:00 AM CDT HEMOGLOBIN Routine 11/30/2023 11:45 AM CDT Chronic blood loss anemia ECHO TTE COMPLETE WO CONTRAST DEBBI 10/06/2023 1:34 PM CDT Coronary artery disease, unspecified vessel or lesion type, unspecified whether angina present, unspecified whether knik or transplanted heart from Last 3 Months Results * SCAN-RADIOLOGY REPORT (12/13/2023 12:00 AM CDT) Anatomical Region Laterality Modality Other Scanner OTHER * (ABNORMAL) HEMOGLOBIN (11/30/2023 11:45 AM CDT) HEMOGLOBIN 10.4(L) 13.5 - 17.5 g/dL 11/30/2023 11:50 AM CDT [facility] MCV 92 80 - 100 fL 11/30/2023 11:50 AM CDT [facility] Blood BLOOD SPECIMEN / Unknown Venipuncture / Unknown 11/30/2023 11:45 AM CDT 11/30/2023 11:45 AM CDT Cesar Mccollum MD HEMATOLOGY [facility] [address] [place] [address], * ECHO TTE COMPLETE WO CONTRAST (10/06/2023 1:34 PM CDT) AORTIC VALVE MEAN PG 10 mmHg EJECTION FRACTION 60 % PEAK TR VELOCITY 2.8 m/s LVEDD 4.2 cm EJECTION FRACTION 65 - 70% Anatomical Region Laterality Modality Ultrasound 10/06/2023 12:5 9 PM CDT Narrative 10/06/2023 2:17 PM CDT ECHOCARDIOGRAM SHYAM SANDS ? Accession#: ?? [id number] : ?1940 83 years Study Date: ?? 10/06/2023 12:59:18 PM Gender: M ?BP: ? 131/72 mmHg Height: 175.26 cm ?BSA: ?1.98 m? ? ? Weight: 81.65 kg ? Tech: ? MBF ? Referring MD: SOULEYMANE MILLER Site: ? [facility] Reading Location: Mobile OP Patient [...] . This study was interpreted by an [facility] accredited facility. ??Final ?? Procedure Note Manav Feliciano MD - 10/06/2023 ECHOCARDIOGRAM SHYAM SANDS : 1940 83 years Study Date: 10/06/2023 12:59:18 PM Gender: M BP: 131/72 mmHg Height: 175.26 cm BSA: 1.98 m? ? ? Weight: 81.65 kg Tech: CONSTANZA Referring MD: SOULEYMANE MILLER Site: [facility] Reading Location: Mobile OP Patient [...] . This study was interpreted by an [facility] accredited facility. Final Souleymane Miller MD ECHO ORD from Last 3 Months Advance Directives Documents on File Type Date Recorded Patient Prefitter Expl anation Healthcare Directive 05/15/2021 022 * [...] Code Status Discussion: Reviewed Preferences Care Teams Media Arts Professor Relationship Specialty Start Date End Date Cesar Mccollum MD [address] [place] [address] PCP - General Family Practice 03/04/20 Nicola Ware MD [address] [place] [phone] Surgery - Urology 03/13/20 Mireya Tan MD [address] [place] [address] Hematology - Pathology 03/13/20 [facility], [place] [address] [place] [address] 09/29/23
== END 2024-01-06 11:26 | disposition home or self-care (01) ==
LOC: WOUND 11:26
PROVIDERS: PCP Family Medicine; Visit Provider Nurse Practitioner Family
DX: N30.41 Irradiation cystitis with hematuria (principal); L89.153 Pressure ulcer of sacral region, stage 3; N13.30 Unspecified hydronephrosis; K62.7 Radiation proctitis; Y84.2 Radiological procedure and radiotherapy as the cause of abnormal reaction of the patient, or of later complication, without mention of misadventure at the time of the procedure
CPT/HCPCS: 11042; G0277

== ENCOUNTER 2024-01-09 09:00 | Outpatient (RCR) | payer MEDICARE, OTHER, SELFPAY | END 2024-01-09 23:59 | disposition home or self-care (01) | LOC: WOUND 09:00 | PROVIDERS: PCP Family Medicine; Visit Provider Nurse Practitioner Family | DX: N30.41 Irradiation cystitis with hematuria (principal); L89.153 Pressure ulcer of sacral region, stage 3; K62.7 Radiation proctitis; C61 Malignant neoplasm of prostate; C79.51 Secondary malignant neoplasm of bone; K62.5 Hemorrhage of anus and rectum; N13.30 Unspecified hydronephrosis; D64.9 Anemia, unspecified; Y84.2 Radiological procedure and radiotherapy as the cause of abnormal reaction of the patient, or of later complication, without mention of misadventure at the time of the procedure; Z79.01 Long term (current) use of anticoagulants; Z86.718 Personal history of other venous thrombosis and embolism; Z96.0 Presence of urogenital implants | CPT/HCPCS: 15271; 36415; 80053; 84153; 85025; 99215; G0277; G0463; Q4201 ==

== ENCOUNTER 2024-01-13 08:49 | Outpatient (CLI) | payer MEDICARE, OTHER, SELFPAY ==
--- OUTSIDE RECORDS SUMMARY | 2024-01-13 08:52 | XMS_ITS | Clinical Summary ---
Author Organization [facility] Address [address] [place] [address] Care Team Providers Care Tie Puller Name Role Phone Cesar Mccollum Primary Care Provider [phone] Allergies No known active allergies Medications Medication [...] this topic Medical Devices Implanted Type Area Van Owner Operator Device Identifier Shelf Expiration Date Model / Serial / Lot Stent Ureteral Polaris Ultra [id number] - [id number] Implanted:Qty : 1 on 02/08/2022 by Nicola Ware MD at [facility] Stent Right: Ureter [employer] [id number] 10/08/2024 [id number] Explanted Type Area Van Owner Operator Device Identifier Shelf Expiration Date Model / Serial / Lot Stent Came Out Of The Right Ureter Explanted:Qty: 1 on 02/08/2022 by Nicola Ware MD at [facility] Right: Urethra Advance Directives For more information, please contact: [phone] Documents on File Type Date Recorded Patient Programmer Engineering And Scientific Expl anation Advance Directives and Living Will 02/17/2022 Health Care Directiv e 05/15/2021 Healthcare Agents on File Name Relationship Healthcare Agent Relationship Communication Mindy Waterman Daughter Co-First Alterna te Health Care Agent Meera Vega Spouse Health Care Agent [phone] (Home) Favio Vega Son Co-First Altern ate Health Care Agent Tereso Vega Son Co-First Alterna te Health Care Agent Care Teams Tie Puller Relationship Specialty Start Date End Date Cesar Mccollum [address] [place] [address] PCP - General Family Medicine 11/22/22
--- OUTSIDE RECORDS SUMMARY | 2024-01-13 08:52 | XMS_ITS | Clinical Summary ---
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 For routine questions regarding patient records, call [phone] during business hours, M-F 8:00 AM - 5:00 PM Central Time. Record requests for emergency care only can be directed to [phone] at any time.[facility] Allergies No known active allergies Medications [...] minutes, take the second dose and call [phone] 11/02/2019 Active tamsulosin (FLOMAX) 0.4 mg 24 [...] morning. 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 Chow, Andrew Z, M.D. Nephrostomy Status Post (HCC) (Primary Dx); Primary Malignant Neoplasm Of Prostate (HCC) Discharge Disposition: Home or Self Care 01/11/2024 10:18 AM CDT - 01/11/2024 11:59 PM CDT Hospital Encounter Department of Laboratory Medicine in [place], [place] [address] [place] [phone] Burke Strauss M.D. Retention Urinary Chronic Discharge Disposition: Home or Self Care 01/11/2024 10:00 AM CDT Office Visit Department of Urology in [address] [phone] Burke Strauss M.D. Retention Urinary Chronic (Primary Dx); Radiation Therapy Cystitis With Hematuria; Primary Malignant Neoplasm Of Prostate (HCC); Nephrostomy Status Post (HCC) Discharge Disposition: Home or Self Care 01/11/2024 9:00 AM CDT Procedure visit Department of Urology in [address] [phone] Burke Strauss M.D. Factor, Piper L, R.N. Retention Urinary Chronic Discharge Disposition: Home or Self Care 01/11/2024 Clinical Communication Department of Radiology in [place] [address] [place] [address] Ingrid Desai M.D. 01/09/2024 2:59 PM CDT - 01/09/2024 6:29 PM CDT [facility] [address] [place] [phone] Sergio Raza M.D. Nephrostomy Status Post (HCC) (Primary Dx) Discharge Disposition: Home or Self Care 01/09/2024 Documentation Department of Urology in [place], [place] [address] [place] [phone] Corin Ring M.D. 12/13/2023 9:15 AM CDT Nurse Only Department of Urology in [address] [phone] Burke Strauss M.D. Gray, Margaret A, L.PNarendra Nurse Visit (Catheter Irrigation ) Discharge Disposition: Home or Self Care 12/08/2023 9:30 AM CDT Office Visit Department of Urology in [address] [phone] Burke Strauss M.D. 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 Anemia; Hematuria Gross; Retention Urinary Chronic Discharge Disposition: Home or Self Care 12/07/2023 10:30 AM CDT Office Visit Department of Urology in [address] [phone] Burke Strauss M.D. Hematuria Gross (Primary Dx); Radiation Therapy Cystitis With Hematuria; Anemia; Retention Urinary Chronic Discharge Disposition: Home or Self Care 11/30/2023 6:44 PM CDT - 11/30/2023 8:06 PM CDT [facility] [address] [place] [phone] Carmen Cherry M.D., M.P.H. Leakage Of Other Urinary Catheter Initial (HCC) (Primary Dx) Discharge Disposition: Home or Self Care 11/15/2023 10:40 AM CDT Ancillary Procedure Department of Wound Ostomy 11/14/2023 11:38 PM CDT - 11/17/2023 3:55 PM CDT Hospital Encounter [facility], Fifth Floor [address] [place] [address] Eliceo Guerrier M.D., Ph.D. Sylvie Álvarez M.B.BLoly, M.Craig. Rashawn Vences M.D. Burkland, Carl B, M.D. Hematuria Gross (Primary Dx) Discharge Disposition: Home-Health Care [facility] 11/14/2023 10:44 AM CDT - 11/14/2023 10:23 PM CDT [facility] [address] [place] [phone] Sergio Raza M.D. Hematuria (Primary Dx); Malfunction Mechanical Urethral Catheter Initial (HCC) Discharge Disposition: Acute Care Hospital 11/14/2023 Documentation Department of Urology in [address] [phone] Sowmya Aviles APRN C.N.PJonah, M.S.N. 11/14/2023 Intake [facility] 11/10/2023 Clinical Communication Department of Urology in [address] [phone] Burke Strauss M.D. Oncology records request 11/09/2023 11:00 AM CDT Office Visit Department of Urology in [address] [phone] Burke Strauss M.D. Primary Malignant Neoplasm Of Prostate (HCC) (Primary Dx); Retention Urinary Chronic; Hematuria Gross Discharge Disposition: Home or Self Care 11/09/2023 Clinical Communication Department of Urology in [address] [phone] Burke Strauss M.D. 10/27/2023 Clinical Communication Department of Urology in [address] [phone] Burke Strauss M.D. 10/14/2023 1:00 PM CDT Procedure visit Department of Urology in [place], [place] [address] [place] [phone] Paula Hernandez M.D. Reichmann, Lynne G, RJonahNJonah Hematuria 10/14/2023 Documentation Department of Urology in [place], [place] [address] [place] [phone] Paula Hernandez M.D. Catheter Care Plan from Last 3 Months Social History Tobacco Use Types Packs/Day Years Used Date Smoking Tobacco: Never Smokeless Tobacco: Never Tobacco Cessation:Counseling Given: Not Answered [facility] Utilities Answer [...] [facility] 11/15/2023 Sex and Gender Information Value Date Recorded Sex Assigned at Not on file Gender Identity Not on file Sexual Orientation Not on file Last Filed Vital Signs Vital Sign Reading Time Taken Comments Blood Pressure 135/73 01/12/2024 9:25 AM CDT Pulse 82 01/12/2024 9:29 AM CDT Temperature 36.2 ??C (97.2 ??F) 01/12/2024 8:30 AM CD T Respiratory Rate 16 01/12/2024 8:30 AM CDT Oxygen Saturation 96% 01/12/2024 9:29 AM CDT Inhaled Oxygen Concentration - - Weight 81.9 kg (180 lb 9.6 oz) 01/09/2024 2:56 P M CDT Height 180.3 cm (5' 11) 01/09/2024 2:56 PM CDT Body Mass Index 25.19 01/09/2024 2:56 PM CDT Plan of Treatment Health Maintenance Due Date Last Done Comments Office Visit for Blood Press ure Check / Re-check 1940 Zoster Vaccines (1 of 2) 1989 RSV vaccine - (32-3 6 weeks) or 60+ years (1 - 1-dose 75+ series) 2014 Depression Screening (Annual PHQ-2) 04/11/2023 COVID-19 Vaccine (2023-2 5 season) 2023 09/13/2022, 01/28/2022, 08/26/2021, Additional history exists Influenza Vaccine (#1) 2024 03/08/2023, 2021 Fasting Glucose for Diabetes Screening 01/10/2025 01/11/2024, 01/09/2024, 11/17/2023, Additional history exists DTaP,Tdap,and Td Vaccines (2 - Td or Tdap) 09/07/2026 09/07/2016 Pneumococcal vaccine (65+ years) Completed 07/21/19 Fall Risk Screen (Annual) Completed 01/12/2024 Medical Devices Implanted Type Area Med Peds Device Identifier Shelf Expiration Date Model / Serial / Lot Clp Hrzn Ti 6 Clp Lg Orng - [id number] Implanted:Qt y: 1 on 08/15/2023 by Boubacar Brock M.D. at [facility] Hardware e.g. pins/screws /rods Abdomen Teleflex Skycatch [id number] 02/29/2028 [id number] / / [id number] Clp Hrzn Ti 6 Clp Lg Orng - [id number] Implanted:Qt y: 1 on 08/15/2023 by Boubacar Brock M.D. at [facility] Hardware e.g. pins/screws /rods Abdomen Teleflex Skycatch [id number] 02/29/2028 [id number] / / [id number] Clp Hrzn Ti 6 Clp Md Monty - [id number] Implanted:Qt y: 1 on 08/15/2023 by Boubacar Brock M.D. at [facility] Hardware e.g. pins/screws /rods Abdomen [employer] [id number] 03/13/2028 [id number] / / [id number] 1 Clp Hrzn Ti 6 Clp Md Monty - [id number] Implanted:Qt y: 1 on 08/15/2023 by Boubacar Brock M.D. at [facility] Hardware e.g. pins/screws /rods Abdomen [employer] [id number] 03/21/2028 [id number] / / [id number] Stnt Uret Inl 6fx24 - [id number] Implanted:Qt y: 1 on 08/15/2023 by Jakob De Paz M.D. at [facility] Ureteral Stent N/A: Ureter C.R.Bard [id number] 11/18/2027 [id number] / / [id number] Procedures Procedure Name Priority Date/Time Associated Diagnosis Comments IR NEPHROSTOMY TUBE EXCHANGE LEFT RAD - Routine (most inpatients and all outpatients) 01/12/2024 9:30 AM CDT Nephrostomy Status Post (HCC) BASIC METABOLIC PANEL, S/P Routine 01/11/2024 10:25 AM CDT Retention Urinary Chronic CT ABDOMEN PELVIS WITH IV CONTRAST RAD - Semiurgent (Fast; most ED patients; some inpatients) 01/09/2024 4:50 PM CDT LIPASE, S/P STAT 01/09/2024 4:29 PM CDT HEPATIC FUNCTION PANEL, S STAT 01/09/2024 4:29 PM CDT BASIC METABOLIC PANEL, S/P STAT 01/09/2024 4:29 PM CDT CREATININE WITH EGFR, S/P Routine 12/07/2023 12:25 [...] CDT from Last 3 Months Results * IR Nephrostomy Tube Exchange Left (01/12/2024 9:30 AM CDT) Anatomical Region Laterality Modality Genito Urinary, Vascular Int erventional RST LOS, Vascular Interventional ARZ LOS, Vascular Interventional FLA LOS Left X-Ray Angiography Impressions 01/12/2024 12:37 PM CDT 1. ??Retracted left nephrostomy tube with exchange and repositioning of the new nephrostomy pigtail back into the renal pelvis. Narrative 01/12/2024 12:37 PM CDT EXAM: IR NEPHROSTOMY TUBE EXCHANGE LEFT INDICATION: 83 year old male partially dislodged nephrostomy tube. Please assess antegrade flow function at same time COMPARISON: Nephrostomy tube placement from 09/13/2023 PROCEDURAL PERSONNEL: Attending: Naseem Brock PREPROCEDURE: Patient seen, evaluated, and history reviewed. Discussed risks, benefits, alternatives for procedure, and obtained informed consent. ??Patient understood the information and questions answered. Immediately prior to [...] The roles and responsibilities of care team members were discussed. The medication list was reviewed and there are no changes to current medications. Patient education provided by a care restaurant hourly team member. Patient was ready to learn with no apparent learning barriers were identified. Post-procedure care explained; patient expressed understanding of the content. PROCEDURE DETAILS: Sedation: None. Sedation time: Not applicable. Estimated Blood Loss: Less than 10 mL. TECHNIQUE: Imaging guidance for catheter exchange: Fluoroscopy with permanent image storage Access side: Left Catheter: 10.2 Libyan 25 cm pigtail nephrostomy catheter Technique: The indwelling 10.2 Libyan catheter was injected with contrast. A guidewire was inserted through the catheter but was unable to advance the catheter back into the renal pelvis. Micropuncture was used to place a new wire in tandem with the catheter into the renal pelvis. The indwelling catheter was removed and exchanged for a new 10.2 Libyan catheter. A permanent image was saved to PACS. The catheter was connected to a gravity drainage bag. The catheter was sutured to the skin. Intraprocedural or immediate post-procedural complications: None FINDINGS: Initial images show the indwelling catheter to be retracted into a minor calyx. Was unable to advance the catheter pigtail back into the renal pelvis. Catheter tip location: Final fluoroscopic image demonstrates the catheter tip to be located in the renal pelvis. Additional observations: None. PLAN: Return in 3 months for a routine nephrostomy catheter exchange. Follow up with urology as previously scheduled. Procedure Note Naseem Brock M.D. - 01/12/2024 EXAM: IR NEPHROSTOMY TUBE EXCHANGE LEFT INDICATION: 83 year old male partially dislodged nephrostomy tube. Pleaseassess antegrade flow function at same time COMPARISON: Nephrostomy tube placement from 09/13/2023 PROCEDURAL PERSONNEL: Attending: Naseem Brock PREPROCEDURE: Patient seen, evaluated, and history reviewed. Discussedrisks, benefits, alternatives for procedure, and obtained informedconsent. Patient understood the information and questions answered.Immediately prior to starting the procedure, in the presence of the assisting personnel, procedural pause was conductedto verify correct patient identity and verification of procedure to beperformed, and as applicable, correct side and site, correct patientposition, availability of implants, special equipment, or special requirements, and all image and specimenidentification data. The roles and responsibilities of care team memberswere discussed. The medication list was reviewed and there are no changesto current medications. Patient education provided by a care restaurant hourly team member. Patient was ready to learn withno apparent learning barriers were identified. Post-procedure careexplained; patient expressed understanding of the content. PROCEDURE DETAILS: Sedation: None. Sedation time: Not applicable. Estimated Blood Loss: Less than 10 mL. TECHNIQUE: Imaging guidance for catheter exchange: Fluoroscopy with permanent imagestorage Access side: Left Catheter: 10.2 Libyan 25 cm pigtail nephrostomy catheter Technique: The indwelling 10.2 Libyan catheter was injected with contrast.A guidewire was inserted through the catheter but was unable to advancethe catheter back into the renal pelvis. Micropuncture was used to place anew wire in tandem with the catheter into the renal pelvis. The indwelling catheter was removed andexchanged for a new 10.2 Libyan catheter. A permanent image was saved toPTouchMail. The catheter was connected to a gravity drainage bag. The catheterwas sutured to the skin. Intraprocedural or immediate post-procedural complications: None FINDINGS: Initial images show the indwelling catheter to be retracted into a minorcalyx. Was unable to advance the catheter pigtail back into the renalpelvis. Catheter tip location: Final fluoroscopic image demonstrates the cathetertip to be located in the renal pelvis. Additional observations: None. PLAN: Return in 3 months for a routine nephrostomy catheter exchange. Follow up with urology as previously scheduled. IMPRESSION: 1. Retracted left nephrostomy tube with exchange and repositioning of thenew nephrostomy pigtail back into the renal pelvis. Ingrid Desai M.D. [facility] [place] IR PROCEDURES * (ABNORMAL) Basic Metabolic Panel (01/11/2024 10:25 AM CDT) Only the most recent of4 resultswithin the time period is included. Potassium, P 4.3 3.6 - 5.2 mmol/L 01/11/2024 11:05 AM CDT NPRG Sodium, P 139 135 - 145 mmol/L 01/11/2024 11:05 AM CDT NPRG Chloride, P 105 98 - 107 mmol/L 01/11/2024 11:05 AM CDT NPRG Bicarbonate, P 24 22 - 29 mmol/L 01/11/2024 11:05 AM CDT NPRG Anion Gap, P 10 7 - 15 01/11/2024 11:05 AM CDT NPRG BUN (Blood Urea Nitrogen), P 27(H) 8 - 24 mg/dL 01/11/2024 11:05 AM CDT NPRG Creatinine 1.35 0.74 - 1.35 mg/dL 01/11/2024 11:05 AM CDT NPRG Estimated GFR (eGFR) 52(L) >=60 mL/min/BSA 01/11/2024 11:05 AM CDT NPRG Comment: Estimated GFR calculated using the 2020 CKD_EPI creatinine equation. Calcium, Total, P 9.5 8.8 - 10.2 mg/dL 01/11/2024 11:05 AM CDT NPRG Glucose, P 104 70 - 140 mg/dL 01/11/2024 11:05 AM CDT NPRG Blood (Blood, Venous) 01/11/2024 10:25 AM CDT 01/11/2024 10:41 AM CDT Burke Strauss M.D. LAB BLOOD ADD-ON [facility] [address] [place] [address], [place] NPRG [facility] [address] [place] [address] * CT Abdomen Pelvis with IV Contrast (01/09/2024 4:50 PM CDT) Anatomical Region Laterality Modality Abdomen, Pelvis, Abdominal R ST LOS, Abdominal ARZ LOS, Abdominal FLA LOS N/A Computed Tomography 01/09/2024 4:52 PM CDT Impressions 01/09/2024 5:10 PM CDT Partial interval retraction of the left percutaneous nephrostomy tube, centered within the lateral mid left renal calyx, but the tube tip within lateral mid left renal parenchyma. The tube has been withdrawn approximately 5 cm as compared to the prior CT. No hydronephrosis. Subtle focal hypoenhancement lateral mid left kidney, and left renal pelvis urothelial thickening compatible with pyelonephritis. Cystitis. No renal abscess. No perirenal fluid collection. Stable severe right renal parenchymal atrophy and stable marked right pyelocaliectasis and moderate proximal right ureteral dilatation. Stable sclerotic lesions in the sacrum and right lower ribs, compatible with sclerotic metastases. Narrative 01/09/2024 5:10 PM CDT EXAM: CT ABDOMEN PELVIS WITH IV CONTRAST COMPARISON: CT abdomen and pelvis 11/14/2023 FINDINGS: Mild linear atelectasis or scarring in both lung bases. Coronary artery calcifications. Trace pericardial effusion. No hepatic mass or biliary ductal dilatation. Gallbladder is unremarkable. The spleen is unremarkable. Left adrenal gland is normal. Incidental ectatic calcification posterior right adrenal gland is stable. Generalized pancreatic parenchymal atrophy. No pancreatic ductal dilatation. Severe right renal parenchymal atrophy and stable moderately severe right pyelocaliectasis is stable mild proximal right ureteral dilatation. Left percutaneous nephrostomy tube has been pulled back slightly since the prior exam, the loop within a mid left renal calyx, and the tube tip partly within lateral mid left renal parenchyma. The proximal opaque tube marker lies within peripheral mid left renal cortex, and has been retracted approximately 5 cm since the prior CT. Mild generalized thickening and enhancement of the urothelium in the left renal pelvis, compatible with pyelitis. There is subtle hypoenhancement in the lateral mid left renal cortex, suggesting mild focal pyelonephritis. No hydronephrosis. No perinephric fluid collection. No left ureteral dilatation. Diffuse urinary bladder wall thickening and urothelial enhancement, compatible with cystitis. Mild diffuse fat stranding about the bladder, likely inflammation. IVC filter in stable position. Normal caliber abdominal aorta. Stable 2 cm umbilical hernia containing fat. No bowel dilatation. Moderate sigmoid diverticulosis. Mild diffuse fat stranding in the presacral and perirectal space, could be due to edema or inflammation. Mottled sclerosis in the sacrum and sclerosis in several right lower ribs, compatible with sclerotic metastases, similar to prior CT. Procedure Note Jhonathan Minor M.D. - 01/09/2024 EXAM: CT ABDOMEN PELVIS WITH IV CONTRAST COMPARISON: CT abdomen and pelvis 11/14/2023 FINDINGS: Mild linear atelectasis or scarring in both lung bases. Coronaryartery calcifications. Trace pericardial effusion. No hepatic mass orbiliary ductal dilatation. Gallbladder is unremarkable. The spleen isunremarkable. Left adrenal gland is normal. Incidental ectatic calcification posterior right adrenal gland isstable. Generalized pancreatic parenchymal atrophy. No pancreatic ductaldilatation. Severe right renal parenchymal atrophy and stable moderately severe rightpyelocaliectasis is stable mild proximal right ureteral dilatation. Leftpercutaneous nephrostomy tube has been pulled back slightly since theprior exam, the loop within a mid left renal calyx, and the tube tip partly within lateral mid left renalparenchyma. The proximal opaque tube marker lies within peripheral midleft renal cortex, and has been retracted approximately [address] Mild generalized thickening and enhancement of the urothelium in the left renal pelvis, compatiblewith pyelitis. There is subtle hypoenhancement in the lateral mid leftrenal cortex, suggesting mild focal pyelonephritis. No hydronephrosis. Noperinephric fluid collection. No left ureteral dilatation. Diffuse urinary bladder wall thickening andurothelial enhancement, compatible with cystitis. Mild diffuse fatstranding about the bladder, likely inflammation. IVC filter in stable position. Normal caliber abdominal aorta. Stable 2 cmumbilical hernia containing fat. No bowel dilatation. Moderate sigmoiddiverticulosis. Mild diffuse fat stranding in the presacral and perirectalspace, could be due to edema or inflammation. Mottled sclerosis in the sacrum and sclerosis in severalright lower ribs, compatible with sclerotic metastases, similar to priorCT. IMPRESSION: Partial interval retraction of the left percutaneous nephrostomy tube,centered within the lateral mid left renal calyx, but the tube tip withinlateral mid left renal parenchyma. The tube has been withdrawnapproximately 5 cm as compared to the prior CT. No hydronephrosis. Subtle focal hypoenhancement lateral mid left kidney, and left renalpelvis urothelial thickening compatible with pyelonephritis. Cystitis. Norenal abscess. No perirenal fluid collection. Stable severe right renal parenchymal atrophy and stable marked rightpyelocaliectasis and moderate proximal right ureteral dilatation. Stable sclerotic lesions in the sacrum and right lower ribs, compatiblewith sclerotic metastases. Sergio CHOUDHARY CT PROCEDURES * Hepatic Function Panel (01/09/2024 4:29 PM CDT) Bilirubin, Total, P 0.5 0.0 - 1.2 mg/dL 01/09/2024 4:51 PM CDT NPRG Bilirubin, Direct, P 0.2 0.0 - 0.3 mg/dL 01/09/2024 4:51 PM CDT NPRG Aspartate Aminotransferase (AST), P 12 8 - 48 U/L 01/09/2024 4:51 PM CDT NPRG Alanine Aminotransferase (ALT), P 8 7 - 55 U/L 01/09/2024 4:51 PM CDT NPRG Alkaline Phosphatase, P 60 40 - 129 U/L 01/09/2024 4:51 PM CDT NPRG Albumin, P 3.5 3.5 - 5.0 g/dL 01/09/2024 4:51 PM CDT NPRG Protein, Total, P 6.8 6.3 - 7.9 g/dL 01/09/2024 4:51 PM CDT NPRG Blood (Blood, Venous) 01/09/2024 4:29 PM CDT 01/09/2024 4:32 PM CDT Sergio Raza M.D. LAB BLOOD ADD-ON Performing Organization Address City/[facility]/ZIP Co de Phone Number [facility] [address] [place] [address], [facility] [address] [address] * (ABNORMAL) Lipase (01/09/2024 4:29 PM CDT) Lipase, P 12(L) 13 - 60 U/L 01/09/2024 4: 46 PM CDT NPRG Blood (Blood, Venous) 01/09/2024 4:29 PM CDT 01/09/2024 4:32 PM CDT Sergio Raza M.D. LAB BLOOD ADD-ON [facility] [address] [place] [address], [facility] NPRG [address] [address] * (ABNORMAL) Hemoglobin (12/07/2023 12:25 PM CDT) Only the most recent of2 resultswithin the time period is included. Hemoglobin 9.2(L) 13.2 - 16.6 g/dL 12/07/2023 12:33 PM CDT NPRG Blood (Blood, Venous) 12/07/2023 12:25 PM CDT 12/07/2023 12:27 PM CDT Burke Strauss M.D. LAB BLOOD ADD-ON [facility] [address] [place] [address], [facility] NPRG [place] [address] [place] [address] * Creatinine with Estimated GFR (12/07/2023 12:25 [...] [facility] [address] [place] [address], [facility] NPRG [address] [address] * (ABNORMAL) CBC without Differential (11/17/2023 7:24 [...] CDT Candelaria Rivas D.O. LAB BLOOD ADD-ON [facility] [address] [place] [address], [place] [address] * Glucose, POCT (11/17/2023 6:45 AM CDT) [facility] Glucose, POCT, B 107 70 - 140 mg/dL 11/17/2023 6:45 AM CDT MKTO Blood 11/17/2023 6:45 AM CDT 11/17/2023 7:03 AM CDT Generic Rals LAB POCT ORDERABLES- MANUAL Performing Organization Address City/[facility]/ZIP Co de Phone Number [facility] [address] [place] [address], [place] [address] * (ABNORMAL) CBC with Differential, Blood (11/16/2023 6:25 AM CDT) Only the most recent of3 resultswithin the time period is included. [facility] Suburban Hemoglobin 9.4(L) 13.2 - 16.6 g/dL 11/16/2023 [...] CDT Rashawn Vences M.D. LAB BLOOD ADD-ON [facility] [address] [place] [address], [facility] MKTO [facility] [place] [address] [place] [address] * (ABNORMAL) Comprehensive Metabolic Panel (11/16/2023 6:25 [...] M.D. LAB BLOOD ADD-ON Performing Organization Address [facility] Co de Phone Number [facility] [address] [place] [address] * Transfuse Red Blood Cells : (11/15/2023 6:35 PM CDT) Madelyn Cesar D.O. BLOOD TRANSFUSION OR DERABLES * Testing Location (11/15/2023 11:09 AM CDT) Testing Location [facility] DEFAULT 11/15/2023 11:47 AM CDT MKTO Blood 11/15/2023 11:0 9 AM CDT 11/15/2023 11:47 AM CDT Sergio Raza M.D. LAB BLOOD BANK TEST ORDERABLES Performing Organization Address [facility] de Phone Number [facility] [address] [place] [address], [place] [address] * Coccyx-Wound Ostomy Image Exam (11/15/2023 10:40 [...] RAD IMAGI NG PROCEDURES Performing Organization Address City/[facility]/ZIP Co de Phone Number [facility] NA * ECG 12 Lead (11/15/2023 6:47 AM CDT) Ventricular Rate ECG/Min 65 BPM MUSE GA Interval 144 ms MUSE QRSD Interval 76 ms MUSE QT Interval 430 ms MUSE QTC Interval 447 ms MUSE P [place] -7 degrees MUSE R [place] 9 degrees MUSE T Wave [place] 19 degrees MUSE 11/15/2023 6:47 AM CDT [...] to determine due to color interference Specific [place] SEE COMMENT 1.001 - 1.035 11/15/2023 8:03 AM CDT MKTO Comment:Unable to determine due to color interference Urobilinogen SEE COMMENT 0.2 - 1.0 mg/dL 11/15/2023 8:03 AM CDT MKTO Comment:Unable to determine due to color interference Urine (Urine, Midstream) 11/15/2023 6:25 AM CDT 11/15/2023 6:34 AM CDT Sylvie Wright M.D. LAB URI NE ORDERABLES [facility] [address] [place] [address], [place] [address] * (ABNORMAL) Microscopic Automated (11/15/2023 6:25 AM [...] LAB URI NE ORDERABLES Performing Organization Address City/[facility]/ZIP Co de Phone Number [facility] [address] [place] [address] * Bacterial Culture, Aerobic + Susceptibility, Urine (11/15/2023 6:24 AM CDT) Urine Culture Urogenital microbiota, susceptibilities not performed per laboratory criteria. 11/16/2023 11:36 AM CDT MKTO Urine (Urine, Indwelling Catheter) 11/15/2023 6:24 AM CDT 11/15/2023 9:29 AM CDT Comment:Specimen Source Site : Urine Zachery Tanner APRN, C.N.P., M.S. LAB MICROBIOLOGY - GENERAL ORDERABLES Performing Organization Address [facility] Co de Phone Number [facility] [address] [place] [address], [place] [address] * CT Abdomen Pelvis without IV Contrast [...] BLOOD BANK TEST ORDERABLES Performing Organization Address [facility] Co de Phone Number [facility] [address] [place] [id number], [facility] NPRG [address] [address] * Type and Screen (with Reflex Antibody ID) (11/14/2023 11:09 AM CDT) Pathologist [facility] ABO Group O 11/15/2023 12:49 PM CDT NPRG Rh Type POS 11/15/2023 12:49 PM CDT NPRG Antibody Screen NEG 12:49 PM CDT NPRG Type & Screen Expiration 11/17/2023 23:59 11/15/2023 12:49 PM CDT NPRG ELXM Eligible Y 11/15/2023 12:49 PM CDT NPRG Blood 11/14/2023 11:0 9 AM CDT 11/15/2023 11:47 AM CDT Sergio Raza M.D. LAB BLOOD BANK TEST ORDERABLES Performing Organization Address City/[facility] Co de Phone Number [facility] [address] [place] [id number], [facility] NPRG [address] [place] [address] from Last 3 Months Advance Directives For more information, please contact: [phone] * Full Code (Latest Code Status on [...] Answer Comments Full Code: Discussed Care Teams Four Slide Machine Operator Relationship Specialty Start Date End Date Elsewhere, Pcp PCP - General Internal Medicine 08/13/23
--- OUTSIDE RECORDS SUMMARY | 2024-01-13 08:52 | XMS_ITS | Referral Summary ---
Author Organization [facility] Address [address] [place] [address] Care Team Providers Care Divisional Merchandising Manager Name Role Phone Cesar Mccollum Primary Care Provider [phone] Allergies No known active allergies Medications Medication [...] on file Medical Devices Implanted Type Area Cell Phone Repair Technician Device Identifier Shelf Expiration Date Model / Serial / Lot Stent Ureteral Polaris Ultra [id number] - [id number] Implanted:Qty : 1 on 02/08/2022 by Nicola Ware MD at [facility] Stent Right: Ureter [employer] [id number] 10/08/2024 [id number] Explanted Type Area Cell Phone Repair Technician Device Identifier Shelf Expiration Date Model / Serial / Lot Stent Came Out Of The Right Ureter Explanted:Qty: 1 on 02/08/2022 by Nicola Ware MD at [facility] Right: Urethra Advance Directives For more information, please contact: [phone] Documents on File Type Date Recorded 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
--- OUTSIDE RECORDS SUMMARY | 2024-01-13 08:53 | XMS_ITS | Encounter Summary ---
Author Organization [facility] Address [address] [place] [address] Care Team Providers Care Fire Engine Pump Operator Name Role Phone Elsewhere, Pcp Primary Care Provider Unavailabl e Encounter Details Date Type Department Care Team (Late st Contact Info) Description 01/09/2024 Documentation Department of Urology in [place], [place] [address] [place] [address] Corin Ring M.D. [address] [place] [address] Social History Tobacco Use Types Packs/Day Years Used Date Smoking Tobacco: Never Smokeless Tobacco: Never [facility] Utilities Answer Date Recorded In the past 12 months has [facility] [employer], gas, oil, or water [employer] threatened to shut off services in [...] living situation today? I have a [facility] place to live 11/15/2023 Sex and Gender Information Value Date Recorded Sex Assigned at Not on file Gender Identity Not on file Sexual Orientation Not on file documented as of this encounter Plan of Treatment Not on file documented as of this encounter Visit Diagnoses Diagnosis Radiation Therapy Cystitis With Hematuria- Primary documented in this encounter Care Teams Fire Engine Pump Operator Relationship Specialty Start Date End Date Elsewhere, Pcp PCP - General Internal Medicine 08/13/23 documented as of this encounter
--- OUTSIDE RECORDS SUMMARY | 2024-01-13 08:53 | XMS_ITS | Encounter Summary ---
Author Organization [facility] Address [address] [place] [address] Care Team Providers Care Street Superintendent Name Role Phone Elsewhere, Pcp Primary Care Provider Unavailabl e Reason for Visit * Reason Comments Nurse Visit Patient here for mon thly scheduled catheter exchange * Outpatient (Routine) - Authorized Specialty Diagnoses / Procedures Referred By Leyla t Referred To Contact Diagnoses Retention Urinary Chronic Procedures URO Urethral cath change (UCC) Burke Strauss M.D. [address] [place] [address] [facility] Region Referral ID Status Reason Start Date Expiration Date V isits Requested Visits Authorized [id number] Authorized 11/09/2023 11/08/2024 15 15 Encounter Details Date Type Department Care Team (Latest Contact Info) Description 01/11/2024 9:00 AM CDT Procedure visit Department of Urology in [place], [place] [address] [place] [phone] Burke Strauss M.D. [address] [place] [address] Keli Denton R.N. [address] [place] [address] Retention Urinary Chronic Discharge Disposition: Home or [...] [facility] 11/15/2023 Sex and Gender Information Value Date Recorded Sex Assigned at Not on file Gender Identity Not on file Sexual Orientation Not on file documented as of this encounter Progress Notes * Keli Denton R.N. - 01/11/2024 9:00 AM CDT Kalen presented today to have a routine catheter change. SonKar present for appointment. Kalen reports having a small amount of leaking occasionally around current catheter. Dr. Strauss in to see Kalen prior to changing current catheter as patient had a scheduled appointment today. Fill and Pullprocedure ordered by Dr. Strauss. Explained procedure to patient and son and all questions answered. Removed leg bag with 50 ml yellow urine with sediment noted in bag. Began with fill and pull procedure and while slowly instilling normal saline into catheter with 30 ml the site around the catheterbegan leaking out the fluid. Stopped instilling the fluid and updated Dr. Strauss. With Dr. Strausspresent RN began slowly instilling another 20 ml NS which again leaked around the catheter site. Patient denies any bladder spasms. Decision made after speaking with patient to discontinue fill and pull and place new catheter as patient was in ER on 01-09-24 for evaluation of Nephrostomy tube which patient stated he accidentally caught on dresser loosening the sutures and has since noticed a lowervolume of urine. Plan to proceed with catheter change utilizing a [address] Strauss. Patient and son in agreement with plan. The balloon was deflated of 30 ml and the catheter was slowly removed. After prepping the patient with betadine a new 20 lao straight tip urethral catheter (Ref # [id number]) was inserted using sterile technique. Urine returned and the balloon was inflated with 10 ml saline. Catheter secured to right upper thigh using a new leg strap and leg bag secured using new straps applied to right lower legThis procedure was tolerated well by the patient. The patient will return for a scheduled appointment with Dr. Strauss in the near future for another attempt at a fill and pull procedure after patient follows up with IR to assess nephrostomy site. documented in this encounter Plan of Treatment Not on file documented as of this encounter Visit Diagnoses Diagnosis Retention Urinary Chronic documented in this encounter Care Teams Street Superintendent Relationship Specialty Start Date End Date Elsewhere, Pcp PCP - General Internal Medicine 08/13/23 documented as of this encounter
--- OUTSIDE RECORDS SUMMARY | 2024-01-13 08:53 | XMS_ITS | Encounter Summary ---
Author Organization [facility] Address [address] [place] [address] Care Team Providers Care Aircraft Designer Name Role Phone Elsewhere, Pcp Primary Care Provider Unavailabl e Reason for Referral * Outpatient (Routine) - Closed Specialty Diagnoses / Procedures Referred By Leyla rosenthal Referred To Contact Diagnoses Retention Urinary Chronic Procedures URO Urethral cath fill / remove / voiding trial (fill / pull) Burke Strauss M.D. [address] [place] [phone] [facility] Referral ID Status Reason Start Date Expiration Date Visits Re quested Visits Authorized [id number] Closed 01/11/2024 01/10/2025 1 1 Reason for Visit * Reason Comments Follow-up Retention * Outpatient (Routine) - Closed Specialty Diagnoses / Procedures Referred By Lyela rosenthal Referred To Contact Urology Burke Strauss M.D. [address] [place] [phone] [facility] Region Referral ID Status Reason Start Date Expiration Date Visits Re quested Visits Authorized [id number] Closed 12/14/2023 06/14/2025 1 1 Encounter Details Date Type Department Care Team (Late st Contact Info) Description 01/11/2024 10:00 AM CDT Office Visit Department of Urology in [place], [place] [address] [place] [address] Burke Strauss M.D. [address] [place] [phone] Retention Urinary Chronic (Primary Dx); Radiation Therapy Cystitis With Hematuria; Primary Malignant Neoplasm Of Prostate (HCC); Nephrostomy Status Post (HCC) Discharge Disposition: Home or Self Care Social History Tobacco Use Types Packs/Day Years Used Date Smoking Tobacco: Never Smokeless Tobacco: Never [facility] Utilities Answer Date Recorded In the past 12 months has [facility] [employer], gas, oil, or water [employer] threatened to shut off services in [...] Progress Notes * Burke Strauss M.D. - 01/11/2024 10:00 AM CDT SUBJECTIVE CHIEF COMPLAINT/REASON FOR VISIT Chief Complaint Patient presents with Follow-up Retention HISTORY OF PRESENT ILLNESS Patient presents for follow-up on multiple urologic issues. 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 This ultimately required cystotomy at [facility] in September 2023. He also has a nonfunctional right kidney, left nephrostomy tube in place since his cystotomy in September 2023. Patient also had significant gross hematuria requiring continuous bladder irrigation in the past. His last significant episode of gross hematuria with clots was one-month ago, at which time, irrigation was able to clear clot formation. He has ongoing hyperbaric oxygen therapy for the radiation cystitis and has not had any gross hematuria within the past month. Recently, patient had a accident in which his left nephrostomy tube was partially pulled. Sutures were dislodged from the skin, he was seen in the ER 2 days ago. Nephrostomy tube was re-sutured, CT scan showed partial interval retraction of the left percutaneous nephrostomy tube, now centered in the lateral mid left renal calyx with the tube tip is within the lateral mid left renal parenchyma. The tube was withdrawn approximately 5 cm compared to the prior CT scan. No hydronephrosis. Patient reports that he had some leakage around the nephrostomy tube 2 days ago, however, over the past day, it has not been leaking at all. He does note the nephrostomy tube bag seems to be filling less than previously, approximately 25- 50% of its usual output. He continues to have a indwelling urethral catheter which appears to be draining normally. The following portions of the patient's history were reviewed and updated as appropriate: allergies, current medications, family history, medical history, social history, surgical history, and problem list. REVIEW OF SYSTEMS REVIEW OF SYSTEMS OBJECTIVE There were no vitals filed for this visit. PHYSICAL EXAM URO Physical Exam Patient appears well Nephrostomy tube site appears intact and without evidence of continued leakage. Gauze surrounding the nephrostomy tube site appears dry. Marking made by ER doctor 2 days ago is nolonger visible, possibly representing advancement of the nephrostomy tube back into the usual position. Indwelling urethral catheter in place with scant amount of leakage. There is meatal erosion. CT scan personally reviewed with findings discussed above. ASSESSMENT / PLAN 1. Retention Urinary Chronic 2. Radiation Therapy Cystitis With Hematuria 3. Primary Malignant Neoplasm Of Prostate (HCC) 4. Nephrostomy Status Post ([facility]) Orders Placed This Encounter Procedures Basic Metabolic Panel URO Urethral cath fill / remove / voiding trial (fill / pull) Patient has had his urethral catheter in since his episodes of gross hematuria secondary to radiation cystitis. As he has been undergoing HBOT and now has not had any gross hematuria within the past month, I recommended a trial of void. Unfortunately, patient had immediate leakage of urine around the urethral catheter with 10 cc of saline instillation with multiple attempts. We discussed the possibility of potential removal of the urethral catheter, however, it will be difficult to assess response of appropriate drainage, especially as his left nephrostomy function is in question. After discussion of risks and benefits, patient chose to have the urethral catheter exchanged as part of his monthly exchange regimen, while awaiting definitive management with his nephrostomy tube. For his left nephrostomy tube, there is the potential that he has appropriate antegrade flow at this time and we had considered setting up with Interventional Radiology for an antegrade pyelogram with possible removal of the left nephrostomy tube. I will consult with them, see if this can be performed and the tube can potentially be removed if good antegrade flow, or replaced if he does not pass that trial. IR consulted. They will arrange for him to be seen either tomorrow or Tuesday. Signed by: Burke Strauss M.D. 01/11/2024 10:23 AM CDT documented in this encounter Plan of Treatment Scheduled Orders Name Type Priority Associated Diagnoses Orde r Schedule URO Urethral cath fill / remove / voiding trial (fill / pull) Procedure Routine Retention Urinary Chronic Expected: 01/11/2024, Expires: 04/12/2025 documented as of this encounter Results * (ABNORMAL) Basic Metabolic Panel (01/11/2024 10:25 AM CDT) Potassium, P 4.3 3.6 - [...] CDT Burke Strauss M.D. LAB BLOOD ADD-ON [facility] [address] [place] [address], [facility] NPRG [facility] [address] [place] [address] documented in this encounter Visit Diagnoses Diagnosis Retention Urinary Chronic- Primary Radiation Therapy Cystitis With Hematuria Primary Malignant Neoplasm Of Prostate (HCC) Nephrostomy Status Post (HCC) documented in this encounter Care Teams Aircraft Designer Relationship Specialty Start Date End Date Elsewhere, Pcp PCP - General Internal Medicine 08/13/23 documented as of this encounter
--- OUTSIDE RECORDS SUMMARY | 2024-01-13 08:53 | XMS_ITS | Encounter Summary ---
Author Organization [facility] Address [address] [place] [address] Care Team Providers Care Inspector Toys Name Role Phone Elsewhere, Pcp Primary Care Provider Unavailabl e Reason for Referral * Outpatient (Routine) - Closed Specialty Diagnoses / Procedures Referred By Leyla rosenthal Referred To Contact Urology Wili Sosa M.D. [address] [place] [phone] [facility] Referral ID Status Reason Start Date Expiration Date Visits Re quested Visits Authorized [id number] Closed 12/14/2023 06/14/2025 1 1 Reason for Visit * Reason Comments Nurse Visit Catheter Irrigation * Outpatient (Routine) - Closed Specialty Diagnoses / Procedures Referred By Leyla rosenthal Referred To Contact Urology Diagnoses Retention Urinary Chronic Wili Sosa M.D. [address] [place] [phone] [facility] Referral ID Status Reason Start Date Expiration Date Visits Re quested Visits Authorized [id number] Closed 12/08/2023 06/08/2025 1 1 Encounter Details Date Type Department Care Team (Late st Contact Info) Description 12/13/2023 9:15 AM CDT Nurse Only Department of Urology in [place], [place] [address] [place] [phone] Wili Sosa M.D. [address] [place] [address] Latonia Dumont L.P.N. Nurse Visit (Catheter Irrigation ) Discharge Disposition: Home or Self Care Social History Tobacco Use Types Packs/Day Years Used Date Smoking Tobacco: Never Smokeless Tobacco: Never [facility] [employer] Answer Date Recorded In the past 12 months has e [employer], gas, oil, or water [employer] threatened to shut off services in your [...] documented in this encounter Care Teams Inspector Toys Relationship Specialty Start Date End Date Elsewhere, Pcp PCP - General Internal Medicine 08/13/23 documented as of this encounter
--- OUTSIDE RECORDS SUMMARY | 2024-01-13 08:53 | XMS_ITS | Encounter Summary ---
Author Organization [facility] Address [address] [place] [address] Care Team Providers Care Buckle Attaching Machine Operator Name Role Phone Elsewhere, Pcp Primary Care Provider Unavailabl e Encounter Details Date Type Department Care Team (Latest Contact Info) Description 12/07/2023 12:19 PM CDT - 12/07/2023 11:59 PM CDT Hospital Encounter Department of Laboratory Medicine in [place], [place] [address] [place] [phone] Burke Strauss M.D. [facility] [place] [phone] Anemia; Hematuria Gross; Retention Urinary Chronic Discharge [...] [facility] to live 11/15/2023 Sex [...] 10 mg by mouth every morning. clopidogreL (Plavix) 75 mg tablet Take 1 tablet (75 mg total) by mouth every morning. DO NOT TAKE UNTIL FOLLOW-UP 11/17/2023 01/09/2024 documented as of this encounter Plan of [...] Burke Strauss M.D. LAB BLOOD ADD-ON [facility] [address] [place] [address], [facility] NPRG [place] [address] [place] [address] * (ABNORMAL) Hemoglobin (12/07/2023 12:25 PM CDT) Hemoglobin 9.2(L) 13.2 - 16.6 g/dL 12/07/2023 12:33 PM CDT NPRG Blood (Blood, Venous) 12/07/2023 12:25 PM CDT 12/07/2023 12:27 PM CDT Burke Strauss M.D. LAB BLOOD ADD-ON Performing Organization Address City/[facility]/ZIP Co de Phone Number [facility] [address] [place] [address], [facility] NPRG [place] [address] [place] [address] documented in this encounter Visit Diagnoses Diagnosis Anemia Hematuria Gross Retention Urinary Chronic documented in this encounter Care Teams Buckle Attaching Machine Operator Relationship Specialty Start Date End Date Elsewhere, Pcp PCP - General Internal Medicine 08/13/23 documented as of this encounter
--- OUTSIDE RECORDS SUMMARY | 2024-01-13 08:53 | XMS_ITS | Encounter Summary ---
Author Organization [facility] Address [address] [place] [address] Care Team Providers Care Splitter Operator Name Role Phone Elsewhere, Pcp Primary Care Provider Unavailabl e Reason for Visit * Reason Comments Urinary Problem Pt presents for eval uation of left nephrostomy tube. Pt states he accidentally caught in on the dresser on Tuesday-tugging quite hard on it. Son noted that urine drainage in bag has decreased since this incident. Sutures are loose, have been pulled out of skin. Pt adds that he has had more abdominal pain starting on Tuesday. No fevers or chills. Otherwise feels ok, is tired. Pt is due to see urologist on Tuesday, was hoping to have catheter removed. Encounter Details Date Type Department Care Team (Late st Contact Info) Description 01/09/2024 2:59 PM CDT - 01/09/2024 6:29 PM CDT [facility] [address] [place] [address] [phone] Sergio Raza M.D. [address] [place] [phone] Nephrostomy Status Post (HCC) (Primary Dx) Discharge [...] [facility] live 11/15/2023 Sex and Gender Information Value Date Recorded Sex Assigned at Not on file Gender Identity Not on file Sexual Orientation Not on file documented as of this encounter Last Filed Vital Signs Vital Sign Reading Time Taken Comments Blood Pressure 127/58 01/09/2024 6:06 PM CDT Pulse 82 01/09/2024 6:06 PM CDT Temperature 37 ??C (98.6 ??F) 01/09/2024 6:06 PM CDT Respiratory Rate 16 01/09/2024 2:58 PM CDT Oxygen Saturation 98% 01/09/2024 6:06 PM CDT Inhaled Oxygen Concentration - - Weight 81.9 kg (180 lb 9.6 oz) 01/09/2024 2:56 P M CDT Height 180.3 cm (5' 11) 01/09/2024 2:56 PM CDT Body Mass Index 25.19 01/09/2024 2:56 PM CDT documented in this encounter Discharge Instructions * Discharge Instructions* Sergio Raza M.D. - 01/09/2024 6:26 PM CDT If any further accidental pulling of the nephrostomy tube occurs, please present to [facility], on the recommendations of the urology team, for further evaluation documented in this encounter Medications at Time [...] ED Notes * Sergio Raza M.D. - 01/09/2024 4:21 PM CDT Images from the original note were not included. SUBJECTIVE CHIEF COMPLAINT/REASON FOR VISIT Urinary Problem (Pt presents for evaluation of left nephrostomy tube. Pt states he accidentally caught in on the dresser on Tuesday-tugging quite hard on it. Son noted that urine drainage in bag hasdecreased since this incident. Sutures are loose, have been pulled out of skin. Pt adds that he hashad more abdominal pain starting on Tuesday. No fevers or chills. Otherwise feels ok, is tired. Pt is due to see urologist on Tuesday, was hoping to have catheter removed. ) HISTORY OF PRESENT ILLNESS 83-year-old male presents to the emergency department for evaluation of left nephrostomy tube. Patient states that he accidentally caught his nephrostomy tube on the dresser 2 days ago, reporting that tongue quite hard in caused significant discomfort. Since then, they have noted a decrease the amount of urine within the bag, and that the sutures were pulled out with it appearing nephrostomy tubehad pertinent inadvertently partially removed. Since the incident, patient reports increased generalized abdominal discomfort in the absence of fevers, chills or cough. No nausea or vomiting. No diarrhea. Patient was taken no analgesic medications, though comes now to the emergency department complaining of mild diffuse generalized abdominal discomfort. History provided by: Patient and relative REVIEW OF SYSTEMS Constitutional: Negative for chills and fever. HENT: Negative. Respiratory: Negative for cough, chest tightness and shortness of breath. Cardiovascular: Negative for chest pain and palpitations. Gastrointestinal: Positive for abdominal pain. Negative for diarrhea, nausea and vomiting. Genitourinary: Left nephrostomy tube as noted in HPI Musculoskeletal: Negative. Neurological: Negative. OBJECTIVE Initial Vitals Temperature 01/09/24 1458 37.6 ??C Pulse Rate 01/09/24 1458 74 Heart Rate -- Resp Rate 01/09/24 1458 16 Blood Pressure 01/09/24 1458 140/75 SpO2 01/09/24 1458 98 % Pain Score 01/09/24 1456 0 - No pain PHYSICAL EXAMINATION Constitutional: Nursing note and vitals reviewed. Vital signs are normal. He is active and cooperative. Non-toxic appearance. He does not have a sickly appearance. He does not appear ill. He appears distressed (Mild). HENT: Head: Normocephalic and atraumatic. Mouth/Throat: Oropharynx is clear and moist. Neck: Neck supple. Cardiovascular: Normal rate and regular rhythm. Pulmonary/Chest: Effort normal and breath sounds normal. Abdominal: Soft. Normal appearance and bowel sounds are normal. There is generalized abdominal tenderness. There is no rigidity, no rebound, no guarding and no CVA tenderness. Patient was fluoroscopy tube site, left, has a sutures approximately 5 cm from the skin, with urinepresent in the bag. The bag was last emptied at 09:00 this morning Musculoskeletal: Cervical back: Neck supple. Neurological: Alert. GCS eye subscore is 4. GCS verbal subscore is 5. GCS motor subscore is 6. Skin: Skin is warm and dry. No rash noted. Psychiatric: He has a normal mood and affect. ASSESSMENT/PLAN Assessment and Plan Impression: Nephrostomy check with stabilizing suture placement Plan: 83-year-old male presents to the emergency department for evaluation of a possible dislodged nephrostomy tube, with urine still in the bag. CT was performed, with results discussed with Urologywho independently reviewed the CT scan. Given the ongoing drainage, advised that the to simply be stabilized with suture and patient can follow up with Urology as previously scheduled this week. Thisis performed, and the patient was discharged home with family with all her current questions were answered to their satisfaction prior to leaving the ER.. ED Course as of 01/09/242017Jan 09, 2024 170 Basic metabolic profile shows no metabolic abnormalities of significance. Liver function testsnormal, biliary tract disease unlikely. Lipase normal, pancreatitis unlikely. 1726 CT evaluation shows a partial interval retraction of the left percutaneous nephrostomy tube, centered within the lateral mid left renal calyx but the tube within the lateral mid left renal parenchyma having been withdrawn approximately 5 cm as compared to the prior CT. No hydronephrosis is noted. Call placed to urology to discuss CT findings [address] findings with Urology, who recommended re stabilization utilizing suture of the nephrostomy tube, and if the patient inadvertently poles the tube out any further, he should go to [facility] at which point in the nephrostomy tube would simply be replaced Final Diagnoses: as of 01/09/24 2018 Nephrostomy Status Post (HCC) - Nephrostomy tube check and stabilizing suture placement Sergio Raza M.D. 01/09/242017 documented in this encounter Plan of Treatment Not on file documented as of this encounter Procedures Procedure Name Priority Date/Time Associated Diagnosis Comments CT ABDOMEN PELVIS WITH IV CONTRAST RAD - Semiurgent (Fast; most ED patients; some inpatients) 01/09/2024 4:50 PM CDT HEPATIC FUNCTION PANEL, S STAT 01/09/2024 4:29 PM CDT LIPASE, S/P STAT 01/09/2024 4:29 PM CDT BASIC METABOLIC PANEL, S/P STAT 01/09/2024 4:29 PM CDT documented in this encounter Results * CT Abdomen Pelvis with IV Contrast [...] right lower ribs, compatiblewith sclerotic metastases. Sergio M Raza M.D. IMG CT PROCEDURES * (ABNORMAL) Lipase (01/09/2024 4:29 PM CDT) Lipase, P 12(L) 13 - 60 U/L 01/09/2024 4: 46 PM CDT NPRG Blood (Blood, Venous) 01/09/2024 4:29 PM CDT 01/09/2024 4:32 PM CDT Sergio Raza M.D. LAB BLOOD ADD-ON [facility] [address] [place] [address], [facility] NPRG [facility] [address] [place] [address] * Hepatic Function Panel (01/09/2024 4:29 PM [...] CDT Sergio Raza M.D. LAB BLOOD ADD-ON [facility] [address] [place] [address], [place] NPRG [facility] [address] [place] [address] * (ABNORMAL) Basic Metabolic Panel (01/09/2024 4:29 PM CDT) Potassium, P 4.7 3.6 - 5.2 mmol/L 01/09/2024 4:51 PM CDT NPRG Sodium, P 135 135 - 145 mmol/L 01/09/2024 4:51 PM CDT NPRG Chloride, P 101 98 - 107 mmol/L 01/09/2024 4:51 PM CDT NPRG Bicarbonate, P 24 22 - 29 mmol/L 01/09/2024 4:51 PM CDT NPRG Anion Gap, P 10 7 - 15 01/09/2024 4:51 PM CDT NPRG BUN (Blood Urea Nitrogen), P 28(H) 8 - 24 mg/dL 01/09/2024 4:51 PM CDT NPRG Creatinine 1.30 0.74 - 1.35 mg/dL 01/09/2024 4:51 PM CDT NPRG Estimated GFR (eGFR) 54(L) >=60 mL/min/BSA 01/09/2024 4:51 PM CDT NPRG Comment: Estimated GFR calculated using the 2020 CKD_EPI creatinine equation. Calcium, Total, P 9.6 8.8 - 10.2 mg/dL 01/09/2024 4:51 PM CDT NPRG Glucose, P 106 70 - 140 mg/dL 01/09/2024 4:51 PM CDT NPRG Blood (Blood, Venous) 01/09/2024 4:29 PM CDT 01/09/2024 4:32 PM CDT Sergio Raza M.D. LAB BLOOD ADD-ON [facility] [address] [facility] [address], [place] NPRG [facility] [address] [place] [address] documented in this encounter Visit Diagnoses Diagnosis Nephrostomy Status Post (HCC)- Primary documented in this encounter Administered Medications Inactive Administered Medications - up to 3 most recent administrations Medication Order MAR Action Action Date Dose Rate Site iohexoL 300 mg iodine/mL solution 1-200 mL (Omnipaque) 1-200 mL, intravenous, Once in imaging, contrast, Starting on Tue01/09/24 at 1651, For 1 dose, If administered oral then dilute in 900 mL water Given 01/09/2024 4:51 PM CDT 140 mL lidocaine 10 mg/mL (1 %) injection 5 mL (Xylocaine) 5 mL, infiltration, Once, On Tue01/09/24 at 1744, For 1 dose Given 01/09/2024 6:05 PM CDT 5 mL sodium chloride 0.9 % flush 100 mL 100 mL, intravenous, Once in imaging, line care, for CT Exam, Starting on Tue01/09/24 at 1651, For 1 dose Given 01/09/2024 4:52 PM CDT 100 mL sodium chloride 0.9 % injection 10 mL 10 mL, intravenous, Once in imaging, line care, Prior to CT, Starting on Tue01/09/24 at 1651, For 1 dose Given 01/09/2024 4:51 PM CDT 10 mL sodium chloride 0.9 % injection 2-10 mL 2-10 mL, intravenous, As needed, line care, Starting on Tue01/09/24 at 1613 documented in this encounter Active and Recently Administered Medications Times are shown in CDT. Scheduled Medication Order 01/07/2024 01/08/2024 01/09/2024 lidocaine 10 mg/mL (1 %) injection 5 mL (Xylocaine) (COMPLETED) 5 mL, infiltration, Once, On Tue01/09/24 at 1744, For 1 dose 1805 (Given - Provid er: Aliza Mata R.N.) PRN Medication Order 01/07/2024 01/08/2024 01/09/2024 iohexoL 300 mg iodine/mL solution 1-200 mL (Omnipaque) (COMPLETED) 1-200 mL, intravenous, Once in imaging, contrast, Starting on Tue01/09/24 at 1651, For 1 dose, If administered oral then dilute in 900 mL water 1651 (Given - Provid er: Skyler Lopez(R)(CT), R.T.(R)) sodium chloride 0.9 % flush 100 mL (COMPLETED) 100 mL, intravenous, Once in imaging, line care, for CT Exam, Starting on Tue01/09/24 at 1651, For 1 dose 1652 (Given - Provid er: Skyler Lopez(R)(CT), R.T.(R)) sodium chloride 0.9 % injection 10 mL (COMPLETED) 10 mL, intravenous, Once in imaging, line care, Prior to CT, Starting on Tue01/09/24 at 1651, For 1 dose 1651 (Given - Provid er: Skyler Lopez(R)(CT), R.T.(R)) sodium chloride 0.9 % injection 2-10 mL(Linked Group 1) 2-10 mL, intravenous, As needed, line care, Starting on Tue01/09/24 at 1613 Linked Groups Order Group 1: Place peripheral IV: No upper extremity site restrictions (COMPLETED) Upper extremity site restriction: No upper extremity site restrictions, Quantity of PIVs requested: One, STAT, Once, On Tue01/09/24 at 1614, For 1 occurrence And sodium chloride 0.9 % injection 2-10 mLJump to med 2-10 mL, intravenous, As needed, line care, Starting on Tue01/09/24 at 1613 documented in this encounter Care Teams Splitter Operator Relationship Specialty Start Date End Date Elsewhere, Pcp PCP - General Internal Medicine 08/13/23 documented as of this encounter
--- OUTSIDE RECORDS SUMMARY | 2024-01-13 08:53 | XMS_ITS | Encounter Summary ---
Author Organization [facility] Address [address] [place] [address] Care Team Providers Care Plastics Engineer Name Role Phone Elsewhere, Pcp Primary Care Provider Unavailabl e Reason for Referral * Outpatient (Routine) - Closed Specialty Diagnoses / Procedures Referred By Leyla rosenthal Referred To Contact Urology Diagnoses Retention Urinary Chronic Burke Strasus M.D. [address] [place] [phone] [facility] Referral ID Status Reason Start Date Expiration Date Visits Re quested Visits Authorized [id number] Closed 12/08/2023 06/08/2025 1 1 Reason for Visit * Reason Comments Follow-up Irrigation of cathet er * Outpatient (Routine) - Closed Specialty Diagnoses / Procedures Referred By Leyla rosenthal Referred To Contact Urology Burke Strauss M.D. [address] [place] [phone] [facility] Referral ID Status Reason Start Date Expiration Date Visits Re quested Visits Authorized [id number] Closed 12/07/2023 06/07/2025 1 1 Encounter Details Date Type Department Care Team (Latest Contact Info) Description 12/08/2023 9:30 AM CDT Office Visit Department of Urology in [place], [place] [address] [place] [phone] Burke Strauss M.D. 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
--- OUTSIDE RECORDS SUMMARY | 2024-01-13 08:53 | XMS_ITS | Encounter Summary ---
Author Organization [facility] Address [address] [place] [address] Care Team Providers Care Audiology Director Name Role Phone Elsewhere, Pcp Primary Care Provider Unavailabl e Reason for Referral * Outpatient (Routine) - Closed Specialty Diagnoses / Procedures Referred By Leyla t Referred To Contact Radiology Diagnoses Nephrostomy Status Post (HCC) Procedures IR Nephrostomy Tube Exchange Left Ingrid Desai M.D. [facility] [place] [phone] [facility] Region Referral ID Status Reason Start Date Expiration Date Visits Re quested Visits Authorized [id number] Closed 01/11/2024 01/10/2025 1 1 Encounter Details Date Type Department Care Team (Late st Contact Info) Description 01/11/2024 Clinical Communication Department of Radiology in [address] [phone] Ingrid Desai M.D. [address] [place] [phone] Social History Tobacco Use Types Packs/Day Years [...] [facility] 11/15/2023 Sex and Gender Information Value Date Recorded Sex Assigned at Not on file Gender Identity Not on file Sexual Orientation Not on file documented as of this encounter Plan of Treatment Not on file documented as of this encounter Results * IR Nephrostomy Tube Exchange Left [...] medications. Patient education provided by a care steamtable attendant railroad. Patient was ready to learn with no apparent learning barriers were identified. Post-procedure care explained; patient expressed understanding of the content. PROCEDURE DETAILS: Sedation: None. Sedation time: Not applicable. Estimated Blood Loss: Less than 10 mL. TECHNIQUE: Imaging guidance for catheter exchange: Fluoroscopy with permanent image storage Access side: Left Catheter: 10.2 Bulgarian 25 cm pigtail nephrostomy catheter Technique: The indwelling 10.2 Bulgarian catheter was injected with contrast. A guidewire was inserted through the catheter but was unable to advance the catheter back into the renal pelvis. Micropuncture was used to place a new wire in tandem with the catheter into the renal pelvis. The indwelling catheter was removed and exchanged for a new 10.2 Bulgarian catheter. A permanent image was saved to [...] medications. Patient education provided by a care steamtable attendant railroad. Patient was ready to learn withno apparent learning barriers were identified. Post-procedure careexplained; patient expressed understanding of the content. PROCEDURE DETAILS: Sedation: None. Sedation time: Not applicable. Estimated Blood Loss: Less than 10 mL. TECHNIQUE: Imaging guidance for catheter exchange: Fluoroscopy with permanent imagestorage Access side: Left Catheter: 10.2 Bulgarian 25 cm pigtail nephrostomy catheter Technique: The indwelling 10.2 Bulgarian catheter was injected with contrast.A guidewire was inserted through the catheter but was unable to advancethe catheter back into the renal pelvis. Micropuncture was used to place anew wire in tandem with the catheter into the renal pelvis. The indwelling catheter was removed andexchanged for a new 10.2 Bulgarian catheter. [facility] The catheter was connected to a gravity [...] pigtail back into the renal pelvis. Ingrid CHOUDHARY IR PROCEDURES documented in this encounter Visit Diagnoses Diagnosis Nephrostomy Status Post (HCC)- Primary Nephrostomy Status Post (HCC)- Primary Primary Malignant Neoplasm Of Prostate (HCC) documented in this encounter Care Teams Audiology Director Relationship Specialty Start Date End Date Elsewhere, Pcp PCP - General Internal Medicine 08/13/23 documented as of this encounter
--- OUTSIDE RECORDS SUMMARY | 2024-01-13 08:53 | XMS_ITS | Encounter Summary ---
Author Organization [facility] Address [address] [place] [address] Care Team Providers Care Knitter Wire Mesh Name Role Phone Elsewhere, Pcp Primary Care Provider Unavailabl e Encounter Details Date Type Department Care Team (Latest Contact Info) Description 01/11/2024 10:18 AM CDT - 01/11/2024 11:59 PM CDT Hospital Encounter Department of Laboratory Medicine in [place], [place] [address] [place] [phone] Burke Strauss M.D. [facility] [place] [phone] Retention Urinary Chronic Discharge Disposition: Home or [...] [facility] 11/15/2023 Sex [...] Procedure Name Priority Date/Time Associated Diagnosis Comments BASIC METABOLIC PANEL, S/P Routine 01/11/2024 10:25 AM CDT Retention Urinary Chronic documented in this encounter Results * (ABNORMAL) Basic Metabolic [...] CDT Burke Strauss M.D. LAB BLOOD ADD-ON [facility] [address] [place] [address], [facility] NPRG [facility] [address] [place] [address] documented in this encounter Visit Diagnoses Diagnosis Retention Urinary Chronic documented in this encounter Care Teams Knitter Wire Mesh Relationship Specialty Start Date End Date Elsewhere, Pcp PCP - General Internal Medicine 08/13/23 documented as of this encounter
--- OUTSIDE RECORDS SUMMARY | 2024-01-13 08:53 | XMS_ITS | Encounter Summary ---
Author Organization [facility] Address [address] [place] [address] Care Team Providers Care Supervisory Cbp Officer Name Role Phone Elsewhere, Pcp Primary Care Provider Unavailabl e Reason for Visit * Reason Comments Urinary Catheter Change Pt reports leaki ng from part of three way catheter, believes he may have nicked it with a scissors. Encounter Details Date Type Department Care Team (Late st Contact Info) Description 11/30/2023 6:44 PM CDT - 11/30/2023 8:06 PM CDT Emergency [facility] [address] [place] [phone] Carmen Cherry M.D., M.P.H. [address] [place] [phone] Leakage Of Other Urinary Catheter Initial (HCC) [...] Everywhere. * Indwelling Urinary Catheter Care Adult [id number] ([place]) documented in this encounter Medications [...] 11/17/2023 01/09/2024 documented as of this encounter ED Notes [...] 11/30/231957 Leakage Of Other Urinary Catheter Initial ([facility]) Carmen Cherry M.D., M.P.H. 11/30/232000 documented in [...] (Due) documented in this encounter Care Teams Supervisory Cbp Officer Relationship Specialty Start Date End Date Elsewhere, Pcp PCP - General Internal Medicine 08/13/23 documented as of this encounter
--- OUTSIDE RECORDS SUMMARY | 2024-01-13 08:53 | XMS_ITS | Referral Summary ---
Author Organization [facility] Address [address] [place] [address] Care Team Providers Care Buttonhole Marker Name Role Phone Elsewhere, Pcp Primary Care Provider Unavailabl e Source Comments Patient records contain information from all sites at [facility]. For routine questions regarding patient records, call [phone] during business hours, M-F 8:00 AM - 5:00 PM Central Time. Record requests for emergency care only can be directed to [phone] at any time.[facility] Encounters Date Type Department Care Team Description 01/12/2024 8:30 AM CDT - 01/12/2024 9:52 AM CDT Hospital Encounter Department of Radiology in [address] [phone] Ingrid Desai M.D. Chow, Andrew Z, M.D. Nephrostomy Status Post (HCC) (Primary Dx); Primary Malignant Neoplasm Of Prostate (HCC) Discharge Disposition: Home or Self Care 01/11/2024 Clinical Communication Department of Radiology in [address] [phone] Ingrid Desai M.D. 01/11/2024 10:18 AM CDT - 01/11/2024 11:59 PM CDT Hospital Encounter Department of Laboratory Medicine in [address] [address] Burke Strauss M.D. Retention Urinary Chronic Discharge Disposition: Home or Self Care 01/11/2024 10:00 AM CDT Office Visit Department of Urology in [address] [phone] Burke Strauss M.D. Retention Urinary Chronic (Primary Dx); Radiation Therapy Cystitis With Hematuria; Primary Malignant Neoplasm Of Prostate (HCC); Nephrostomy Status Post (HCC) Discharge Disposition: Home or Self Care 01/11/2024 9:00 AM CDT Procedure visit Department of Urology in [address] [address] Burke Strauss M.D. Factor, Piper L, RJonahNJonah Retention Urinary Chronic Discharge Disposition: Home or Self Care 01/09/2024 Documentation Department of Urology in [place], [place] [address] [place] [phone] Corin Ring M.D. 01/09/2024 2:59 PM CDT - 01/09/2024 6:29 PM CDT [facility] [address] [place] [phone] Sergio Raza M.D. Nephrostomy Status Post (HCC) (Primary Dx) Discharge Disposition: Home or Self Care 12/13/2023 9:15 AM CDT Nurse Only Department of Urology in [address] [address] Burke Strauss M.D. Gray, Margaret A, L.P.N. Nurse Visit (Catheter Irrigation ) Discharge Disposition: Home or Self Care 12/08/2023 9:30 AM CDT Office Visit Department of Urology in [address] [address] Burke Strauss M.D. 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 Anemia; Hematuria Gross; Retention Urinary Chronic Discharge Disposition: Home or Self Care 12/07/2023 10:30 AM CDT Office Visit Department of Urology in [address] [phone] Burke Strauss M.D. Hematuria Gross (Primary Dx); Radiation Therapy Cystitis With Hematuria; Anemia; Retention Urinary Chronic Discharge Disposition: Home or Self Care 11/30/2023 6:44 PM CDT - 11/30/2023 8:06 PM CDT [facility] [address] [place] [phone] Carmen Cherry M.D., M.P.H. Leakage Of Other Urinary Catheter Initial (HCC) (Primary Dx) Discharge Disposition: Home or Self Care 11/14/2023 11:38 PM CDT - 11/17/2023 3:55 PM CDT Hospital Encounter [facility], Fifth Floor [address] [place] [address] Eliceo Guerrier M.D., Ph.D. Sylvie Álvarez M.B.BLoly, MPerla. Rashawn Vences M.D. Gabe Buckley M.D. Hematuria Gross (Primary Dx) Discharge Disposition: Home-Health Care [facility] 11/15/2023 10:40 AM CDT Ancillary Procedure Department of Wound Ostomy 11/14/2023 Documentation Department of Urology in [place], [place] [address] [place] [phone] Sowmya Aviles APRN, C.NAddison, M.S.N. 11/14/2023 Intake [facility] 11/14/2023 10:44 AM CDT - 11/14/2023 10:23 PM CDT [facility] [address] [place] [phone] Sergio Raza M.D. Hematuria (Primary Dx); Malfunction Mechanical Urethral Catheter Initial (HCC) Discharge Disposition: [facility] 11/10/2023 Clinical Communication Department of Urology in [address] [phone] Burke Strauss M.D. Oncology records request 11/09/2023 Clinical Communication Department of Urology in [address] [phone] Burke Strauss M.D. 11/09/2023 11:00 AM CDT Office Visit Department of Urology in [address] [phone] Burke Strauss M.D. Primary Malignant Neoplasm Of Prostate (HCC) (Primary Dx); Retention Urinary Chronic; Hematuria Gross Discharge Disposition: Home or Self Care 10/27/2023 Clinical Communication Department of Urology in [address] [address] Burke Strauss M.D. 10/14/2023 Documentation Department of Urology in [address] [address] Paula Hernandez M.D. Catheter Care Plan 10/14/2023 1:00 PM CDT Procedure visit Department of Urology in [address] [phone] Paula Hernandez M.D. 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 Current Use Of Oth er Agents Affecting Estrogen Receptors And Estrogen Levels 11/15/2023 Presence Of Other Vascular Implants And Grafts 0 11/15/2023 Other Specified Disorders Of Bladder 11/15/2023 Other Retention Of Urine 11/15/2023 PreDiabetes 11/15/2023 Presence Of Urogenital Implants 11/15/2023 Unspecified Complication Of Genitourinary Prosthetic Device Implant And Graft Initial 11/15/2023 Inferior Vena Cava Filter 11/15/2023 Residential (Current) Anticoagulant Treatment 09/2023 Presence Of Other [...] 01/09/2024 2:56 PM CDT Plan of Treatment Not on file Medical Devices Implanted Type Area Janitorial Supervisor Device Identifier Shelf Expiration Date Model / Serial / Lot Clp Hrzn Ti 6 Clp Lg Orng - [id number] Implanted:Qt y: 1 on 08/15/2023 by Boubacar Brock M.D. at [facility] Hardware e.g. pins/screws /rods [employer]dom[employer] [id number] 02/29/2028 [id number] / / [id number] Clp Hrzn Ti 6 Clp Lg Orng - [id number] Implanted:Qt y: 1 on 08/15/2023 by Boubacar Brock M.D. at [facility] Hardware e.g. pins/screws /rods [employer] [id number] 02/29/2028 [id number] / / [id number] Clp Hrzn Ti 6 Clp Md Monty - [id number] Implanted:Qt y: 1 on 08/15/2023 by Boubacar Brock M.D. at [facility] Hardware e.g. pins/screws /rods [employer]dom[employer] [id number] 03/13/2028 [id number] / / [id number] 1 Clp Hrzn Ti 6 Clp Md Monty - [id number] Implanted:Qt y: 1 on 08/15/2023 by Boubacar Brock M.D. at [facility] Hardware e.g. pins/screws /rods [employer]dom[employer] [id number] 03/21/2028 [id number] / / [id number] 3 Stnt Uret Inl 6fx24 - [id number] Implanted:Qt y: 1 on 08/15/2023 by Jakob De Paz M.D. at [facility] Ureteral Stent N/A: Ureter C.[employer].Bard [id number] 11/18/2027 [id number] / / [id number] Procedures Procedure Name Priority Date/Time Associated Diagnosis [...] medications. Patient education provided by a care warehouse team member. Patient was ready to learn with no apparent learning barriers were identified. Post-procedure care explained; patient expressed understanding of the content. PROCEDURE DETAILS: Sedation: None. Sedation time: Not applicable. Estimated Blood Loss: Less than 10 mL. TECHNIQUE: Imaging guidance for catheter exchange: Fluoroscopy with permanent image storage Access side: Left Catheter: 10.2 Maltese 25 cm pigtail nephrostomy catheter Technique: The indwelling 10.2 Maltese catheter was injected with contrast. A guidewire was inserted through the catheter but was unable to advance the catheter back into the renal pelvis. Micropuncture was used to place a new wire in tandem with the catheter into the renal pelvis. The indwelling catheter was removed and exchanged for a new 10.2 Maltese catheter. A permanent image was saved to [...] medications. Patient education provided by a care warehouse team member. Patient was ready to learn withno apparent learning barriers were identified. Post-procedure careexplained; patient expressed understanding of the content. PROCEDURE DETAILS: Sedation: None. Sedation time: Not applicable. Estimated Blood Loss: Less than 10 mL. TECHNIQUE: Imaging guidance for catheter exchange: Fluoroscopy with permanent imagestorage Access side: Left Catheter: 10.2 Maltese 25 cm pigtail nephrostomy catheter Technique: The indwelling 10.2 Maltese catheter was injected with contrast.A guidewire was inserted through the catheter but was unable to advancethe catheter back into the renal pelvis. Micropuncture was used to place anew wire in tandem with the catheter into the renal pelvis. The indwelling catheter was removed andexchanged for a new 10.2 Maltese catheter. A permanent image was saved [facility]. The catheter was connected to a gravity [...] into the renal pelvis. Ingrid Desai M.D. IMG IR PROCEDURES * (ABNORMAL) Basic Metabolic Panel [...] CDT Burke Strauss M.D. LAB BLOOD ADD-ON [facility] [address] [place] [address], [facility] NPRG [facility] [address] [place] [address] * CT Abdomen Pelvis with IV Contrast [...] right lower ribs, compatiblewith sclerotic metastases. Sergio Raza M.D. IMG CT PROCEDURES * Hepatic Function Panel (01/09/2024 [...] CDT Sergio Raza M.D. LAB BLOOD ADD-ON [facility] [address] [place] [address], [address] [address] * (ABNORMAL) Lipase (01/09/2024 4:29 PM CDT) Lipase, P 12(L) 13 - 60 U/L 01/09/2024 4: 46 PM CDT NPRG Blood (Blood, Venous) 01/09/2024 4:29 PM CDT 01/09/2024 4:32 PM CDT Sergio Raza M.D. LAB BLOOD ADD-ON Performing Organization Address City/[facility] Co de Phone Number [facility] [address] [place] [address], [address] [address] * (ABNORMAL) Hemoglobin (12/07/2023 12:25 PM CDT) Only the most recent of2 resultswithin the time period is included. Hemoglobin 9.2(L) 13.2 - 16.6 g/dL 12/07/2023 12:33 PM CDT NPRG Blood (Blood, Venous) 12/07/2023 12:25 PM CDT 12/07/2023 12:27 PM CDT Burke Strauss M.D. LAB BLOOD ADD-ON [facility] [address] [place] [address], [address] [address] * Creatinine with Estimated GFR (12/07/2023 12:25 PM CDT) Creatinine 1.13 0.74 - 1.35 mg/dL 12/07/2023 12:49 PM CDT NPRG Estimated GFR (eGFR) 64 >=60 mL/min/BSA 12/07/2023 12:49 PM CDT NPRG Comment: Estimated GFR calculated using the 2020 CKD_EPI creatinine equation. Blood (Blood, Venous) 12/07/2023 12:25 PM CDT 12/07/2023 12:27 PM CDT Burke Strauss M.D. LAB BLOOD ADD-ON Performing Organization Address City/State/[facility] Co de Phone Number [facility] [address] [place] [address], [facility] NPRG [facility] [address] [place] [address] * (ABNORMAL) CBC without Differential (11/17/2023 7:24 [...] CDT Candelaria Rivas D.O. LAB BLOOD ADD-ON [facility] [address] [place] [address], [place] [address] * Glucose, POCT (11/17/2023 6:45 AM CDT) Pathologist [facility] Glucose, POCT, B 107 70 - 140 mg/dL 11/17/2023 6:45 AM CDT [facility] Blood 11/17/2023 6:45 AM CDT 11/17/2023 7:03 AM CDT Generic Rals LAB POCT ORDERABLES- MANUAL Performing Organization Address [facility] Co de Phone Number [facility] [address] [place] [address], [place] [address] * (ABNORMAL) CBC with Differential, Blood (11/16/2023 6:25 AM CDT) Only the most recent of3 resultswithin the time period is included. Pathologist [facility] Hemoglobin 9.4(L) 13.2 - 16.6 g/dL 11/16/2023 [...] CDT Rashawn Vences M.D. LAB BLOOD ADD-ON [facility] [place] [address], [facility] MKTO [facility] [place] [address] * (ABNORMAL) Comprehensive Metabolic Panel (11/16/2023 6:25 [...] CDT Rashawn Vences M.D. LAB BLOOD ADD-ON [facility] [address] [place] [address], [facility] MKTO [facility] [place] [address] * Transfuse Red Blood Cells : (11/15/2023 6:35 PM CDT) Madelyn Cesar D.O. BLOOD TRANSFUSION OR DERABLES * Testing Location (11/15/2023 11:09 AM CDT) Testing Location [facility] DEFAULT 11/15/2023 11:47 AM CDT [facility] Blood 11/15/2023 11:0 9 AM CDT 11/15/2023 11:47 AM CDT Sergio Raza M.D. LAB BLOOD BANK TEST ORDERABLES Performing Organization Address [facility]/ZIP Co de Phone Number [facility] [address] [place] [address], [facility] MKTO [facility] [place] [address] [place] [address] * Coccyx-Wound Ostomy Image Exam (11/15/2023 10:40 [...] RAD IMAGI NG PROCEDURES Performing Organization Address [facility] Co de Phone Number [facility] NA * ECG 12 Lead (11/15/2023 6:47 AM CDT) Ventricular Rate ECG/Min 65 BPM MUSE IN Interval 144 ms MUSE QRSD Interval 76 ms MUSE QT Interval 430 ms MUSE QTC Interval 447 ms MUSE P [place] -7 degrees MUSE R [place] 9 degrees MUSE T Wave [place] 19 degrees MUSE 11/15/2023 6:47 AM CDT [...] by 80 bpm Reviewed by BETTY Powers Isaelmalinda Preeti Wright M.D. ECG ORD ERABLES MUSE [...] to determine due to color interference Specific [place] SEE COMMENT 1.001 - 1.035 11/15/2023 8:03 AM CDT [facility] Comment:Unable to determine due to color interference Urobilinogen SEE COMMENT 0.2 - 1.0 mg/dL 11/15/2023 8:03 AM CDT [facility] Comment:Unable to determine due to color interference Urine (Urine, Midstream) 11/15/2023 6:25 AM CDT 11/15/2023 6:34 AM CDT Sylvie Wright M.D. LAB URI NE ORDERABLES Performing Organization Address [facility] Co de Phone Number [facility] [address] [place] [address], [place] [address] * (ABNORMAL) Microscopic Automated (11/15/2023 6:25 AM [...] LAB URI NE ORDERABLES Performing Organization Address City/[facility] Co de Phone Number [facility] [address] [place] [address], [place] [address] * Bacterial Culture, Aerobic + Susceptibility, Urine (11/15/2023 6:24 AM CDT) Urine Culture Urogenital microbiota, susceptibilities not performed per laboratory criteria. 11/16/2023 11:36 AM CDT [facility] Urine (Urine, Indwelling Catheter) 11/15/2023 6:24 AM CDT 11/15/2023 9:29 AM CDT Comment:Specimen Source Site : Urine Zachery Tanner APRN, C.N.P., M.S. LAB MICROBIOLOGY - GENERAL ORDERABLES [facility] [address] [place] [address], [facility] MKTO [facility] [place] [address] [place] [address] * CT Abdomen Pelvis without IV Contrast [...] Raza M.D. LAB BLOOD BANK TEST ORDERABLES [facility] [address] [place], [place] [address] NPRG [facility] [address] [place] [address] * Type and Screen (with Reflex Antibody [...] BLOOD BANK TEST ORDERABLES Performing Organization Address City/State/[facility] Co de Phone Number [facility] [address] [place] [address], [facility] NPRG [facility] [address] [place] [address] from Last 3 Months Advance Directives For more information, please contact: [phone] * Full Code (Latest Code Status on [...] Answer Comments Full Code: Discussed Care Teams Buttonhole Marker Relationship Specialty Start Date End Date Elsewhere, Pcp PCP - General Internal Medicine 08/13/23
--- OUTSIDE RECORDS SUMMARY | 2024-01-13 08:53 | XMS_ITS ---
Author Organization [facility] Address [address] [place] [address] Care Team Providers Care Corporate Strategy Associate Name Role Phone Unavailable Unavailable Unavailable Surgery Details Not on file Complications Check Surgery Details section. Procedure Estimated Blood Loss Check Surgery Details section. Procedure Findings Check Surgery Details section. Procedure Specimens Taken Check Surgery Details section.
--- OUTSIDE RECORDS SUMMARY | 2024-01-13 08:53 | XMS_ITS | Encounter Summary ---
Author Organization [facility] Address [address] [place] [address] Care Team Providers Care Browning Processor Name Role Phone Elsewhere, Pcp Primary Care Provider Unavailabl e Reason for Referral * Outpatient (Routine) - Closed Specialty Diagnoses / Procedures Referred By Leyla rosenthal Referred To Contact Burke Lucero M.D. [address] [place] [phone] [facility] Referral ID Status Reason Start Date Expiration Date Visits Re quested Visits Authorized [id number] Closed 12/07/2023 06/07/2025 1 1 Reason for Visit * Reason Comments Follow-up Discuss jon cathet er * Outpatient (Routine) - Closed Specialty Diagnoses / Procedures Referred By Lelya rosenthal Referred To Contact Burke Lucero M.D. [address] [place] [phone] [facility] Referral ID Status Reason Start Date Expiration Date Visits Re quested Visits Authorized [id number] Closed 11/09/2023 05/10/2025 1 1 Encounter Details Date Type Department Care Team (Late st Contact Info) Description 12/07/2023 10:30 AM CDT Office Visit Department of Urology in [place], [place] [address] [place] [phone] Burke Strauss M.D. [address] [place] [phone] Hematuria Gross (Primary Dx); Radiation Therapy Cystitis With Hematuria; Anemia; Retention Urinary Chronic Discharge Disposition: Home or Self Care Social History Tobacco Use Types Packs/Day Years Used Date Smoking Tobacco: Never Smokeless Tobacco: Never [facility] Utilities Answer Date Recorded In the past 12 months has [facility] [employer], gas, oil, or water the Shelf threatened to shut off services in your [...] living situation today? [facility] 11/15/2023 Sex [...] sterile technique anew 22 Fr. (Ref # [id number]) Silicone 3- way catheter placed with assistance [...] was inadvertently cut. He currently has a22 [place] silicone three-way catheter. He will return tomorrow [...] CDT Burke Strauss M.D. LAB BLOOD ADD-ON [facility] [address] [place] [address], [place] NPRG [facility] [address] [place] [address] * (ABNORMAL) Hemoglobin (12/07/2023 12:25 PM CDT) Hemoglobin 9.2(L) 13.2 - 16.6 g/dL 12/07/2023 12:33 PM CDT NPRG Blood (Blood, Venous) 12/07/2023 12:25 PM CDT 12/07/2023 12:27 PM CDT Burke Strauss M.D. LAB BLOOD ADD-ON [facility] [address] [place] [address], [facility] NPRG [facility] [address] [place] [address] documented in this encounter Visit Diagnoses Diagnosis Hematuria Gross- Primary Radiation Therapy Cystitis With Hematuria Anemia Retention Urinary Chronic documented in this encounter Care Teams Browning Processor Relationship Specialty Start Date End Date Elsewhere, Pcp PCP - General Internal Medicine 08/13/23 documented as of this encounter
--- OUTSIDE RECORDS SUMMARY | 2024-01-13 08:53 | XMS_ITS | Encounter Summary ---
Author Organization [facility] Address [address] [place] [address] Care Team Providers Care Director Title Name Role Phone Elsewhere, Pcp Primary Care Provider Unavailabl e Reason for Referral * Outpatient (Routine) - Authorized Specialty Diagnoses / Procedures Referred By Leyla rosenthal Referred To Contact Radiology Diagnoses Nephrostomy Status Post (HCC) Primary Malignant Neoplasm Of Prostate (HCC) Procedures IR Nephrostomy Tube Exchange Left Naseem Brock M.D. [address] [place] [address] [facility] Region Referral ID Status Reason Start Date Expiration Date V isits Requested Visits Authorized [id number] Authorized 01/12/2024 01/11/2025 1 1 * Outpatient (Routine) - Closed Specialty Diagnoses / Procedures Referred By Lelya rosenthal Referred To Contact Radiology Diagnoses Nephrostomy Status Post (HCC) Procedures IR Nephrostomy Tube Exchange Left Ingrid Desai M.D. [address] [place] [address] [facility] Region Referral ID Status Reason Start Date Expiration Date Visits Re quested Visits Authorized [id number] Closed 01/11/2024 01/10/2025 1 1 Reason for Visit * Outpatient (Routine) - Closed Specialty Diagnoses / Procedures Referred By Leyla t Referred To Contact Radiology Diagnoses Nephrostomy Status Post (HCC) Procedures IR Nephrostomy Tube Exchange Left Ingrid Desai M.D. [address] [place] [phone] [facility] Region Referral ID Status Reason Start Date Expiration Date Visits Re quested Visits Authorized [id number] Closed 01/11/2024 01/10/2025 1 1 Encounter Details Date Type Department Care Team (Latest Contact Info) Description 01/12/2024 8:30 AM CDT - 01/12/2024 9:52 AM CDT Hospital Encounter Department of Radiology in [address] [phone] Ingrid Desai M.D. [address] [place] [phone] Naseem Brock M.D. [address] [place] [phone] Nephrostomy Status Post (HCC) (Primary Dx); Primary Malignant Neoplasm Of Prostate (HCC) Discharge Disposition: Home or Self Care Social History Tobacco Use Types Packs/Day Years Used Date Smoking Tobacco: Never Smokeless Tobacco: Never [facility] Utilities Answer Date Recorded In the past 12 months has [facility] Needle, gas, oil, or water [employer] threatened to shut off services in your [...] a [facility] place to live 11/15/2023 Sex and [...] Concentration - - Weight - - Height - - Body Mass Index - - documented in this encounter Medications at Time [...] every morning. documented as of this encounter Procedure Notes * Naseem Brock M.D. - 01/12/2024 9:40 AM CDT BRIEF POST PROCEDURE NOTE Vascular & Interventional Radiology PROCEDURE Left nephrostomy tube exchange PRE-PROCEDURE DIAGNOSIS Prostate cancer, partially retracted left nephrostomy tube POST-PROCEDURE DIAGNOSIS Same. PROCEDURE DETAILS / FINDINGS Indwelling tube was retracted into a minor calyx. Left nephrostomy tube exchange with placement of a new 10.2 Greek 25 cm pigtail nephrostomy tube into the renal pelvis. Please see Radiology Report for full details. EMBEDDED PROCESSOR Mars Brock M.D. SPECIMENS REMOVED None. ESTIMATED BLOOD LOSS <5ml COMPLICATIONS None. PATIENT DISPOSITION Return to outpatient unit for recovery. Discharge patient when discharge criteria met. PLAN Follow up with urology as previously planned. Routine tube exchange in 3 months if the patient retains the tube. documented in this encounter Plan of Treatment Scheduled Orders Name Type Priority Associated Diagnoses Order Schedule IR Nephrostomy Tube Exchange Left Imaging RAD - Routine (most inpatients and all outpatients) Nephrostomy Status Post (HCC) Primary Malignant Neoplasm Of Prostate (HCC) Expected: 04/13/2024, Expires: 04/13/2025 documented as of this encounter Procedures Procedure Name Priority Date/Time Associated Diagnosis Comments IR NEPHROSTOMY TUBE EXCHANGE LEFT RAD - Routine (most inpatients and all outpatients) 01/12/2024 9:30 AM CDT Nephrostomy Status Post (HCC) documented in this encounter Results * IR Nephrostomy Tube [...] medications. Patient education provided by a care steam and power superintendent. Patient was ready to learn with no apparent learning barriers were identified. Post-procedure care explained; patient expressed understanding of the content. PROCEDURE DETAILS: Sedation: None. Sedation time: Not applicable. Estimated Blood Loss: Less than 10 mL. TECHNIQUE: Imaging guidance for catheter exchange: Fluoroscopy with permanent image storage Access side: Left Catheter: 10.2 Greek 25 cm pigtail nephrostomy catheter Technique: The indwelling 10.2 Greek catheter was injected with contrast. A guidewire was inserted through the catheter but was unable to advance the catheter back into the renal pelvis. Micropuncture was used to place a new wire in tandem with the catheter into the renal pelvis. The indwelling catheter was removed and exchanged for a new 10.2 Greek catheter. A permanent image was saved to [...] medications. Patient education provided by a care steam and power superintendent. Patient was ready to learn withno apparent learning barriers were identified. Post-procedure careexplained; patient expressed understanding of the content. PROCEDURE DETAILS: Sedation: None. Sedation time: Not applicable. Estimated Blood Loss: Less than 10 mL. TECHNIQUE: Imaging guidance for catheter exchange: Fluoroscopy with permanent imagestorage Access side: Left Catheter: 10.2 Greek 25 cm pigtail nephrostomy catheter Technique: The indwelling 10.2 Greek catheter was injected with contrast.A guidewire was inserted through the catheter but was unable to advancethe catheter back into the renal pelvis. Micropuncture was used to place anew wire in tandem with the catheter into the renal pelvis. The indwelling catheter was removed andexchanged for a new 10.2 Greek catheter. A permanent image was saved toPTepha. The catheter was connected to a gravity [...] Diagnoses Diagnosis Nephrostomy Status Post (HCC)- Primary Primary Malignant Neoplasm Of Prostate (HCC) documented in this encounter Administered Medications Inactive Administered Medications - up to 3 most recent administrations Medication Order MAR Action Action Date Dose Rate Site iohexoL 350 mg iodine/mL solution (Omnipaque) As needed, Starting on Nani 01/12/24 at 0933, Intra-Op Given 01/12/2024 9:33 AM CDT 10 mL lidocaine-sodium bicarbonate (buffered) 0.9%-0.84% injection infiltration, As needed, Starting on Nani 01/12/24 at 0914, Intra-Op Given 01/12/2024 9:29 AM CDT 5 mL Given 01/12/2024 9:14 AM CDT 8 mL documented in this encounter Active and Recently Administered Medications Times are shown in CDT. PRN Medication Order 01/10/2024 01/11/2024 01/12/2024 iohexoL 350 mg iodine/mL solution (Omnipaque) (COMPLETED) As needed, Starting on Nani 01/12/24 at 0933, Intra-Op 0933 (Given - Provid er: Naseem Brock M.D.) lidocaine-sodium bicarbonate (buffered) 0.9%-0.84% injection (COMPLETED) infiltration, As needed, Starting on Nani 01/12/24 at 0914, Intra-Op 0914 (Given - Provid er: Naseem Brock M.D. - Comment: left flank)0929 (Given - Provider: Naseem Brock M.D.) documented in this encounter Care Teams Director Title Relationship Specialty Start Date End Date Elsewhere, Pcp PCP - General Internal Medicine 08/13/23 documented as of this encounter
--- OUTSIDE RECORDS SUMMARY | 2024-01-13 08:53 | XMS_ITS ---
Author Organization 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 Bila teral 11/15/2023 Atherosclerotic Heart Diseas e Of [place] Coronary Artery Without Angina Pectoris 11/15/2023 Overview (11/15/2023): stent placements 2017 Complication Procedure Initial 11/15/2023 Deficiency Iron 11/15/2023 Hyperlipidemia 11/15/2023 Hypertension Essential Primary 11/15/2023 [facility] Current Use Of Oth er Agents Affecting Estrogen Receptors And Estrogen Levels 11/15/2023 Presence Of Other Vascular Implants And Grafts 0 11/15/2023 Other Specified Disorders Of Bladder 11/15/2023 Other Retention Of Urine 11/15/2023 PreDiabetes 11/15/2023 Presence Of Urogenital Implants 11/15/2023 Unspecified Complication Of Genitourinary Prosthetic Device Implant And Graft Initial 11/15/2023 Inferior Vena Cava Filter 11/15/2023 Ward Maid (Current) Anticoagulant Treatment 09/2023 Presence Of Other [...] On Elapsed Days Session Dose Total Dose [id number] 04/28/2020 32 300 cGy 6,000 cGy Lifetime Dose Tracking * Chemical Lifetime Dose Automatic Entry Manual Entr y Radiation 58.71 mGy 58.71 mGy 0 mGy Fluoro Time 6.905 minutes 6.905 minutes 0 minutes DAP (uGy-m2) 1,232.05 uGy-m2 1,232.05 uGy-m2 0 uGy-m2 Resolved Problems Problem Noted Date Diagnosed Date Resolved Date Hematuria Gross 08/31/2023 11/17/2023
--- OUTSIDE RECORDS SUMMARY | 2024-01-13 08:54 | XMS_ITS | Clinical Summary ---
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 SYY=869.87 Bladder mass 02/29/2020 04/30/2020 Hematuria 02/29/2020 03/05/2020 Acute deep vein thrombosis (DVT) 02/29/2020 11/20/2020 S/P coronary angioplasty 11/03/2016 Chest pain 09/15/2016 03/05/2020 Elevated prostate specific antigen (PSA) 10/06/2010 03/05/2020 Hip arthritis 10/06/2010 03/05/2020 Colon polyp 07/15/2010 PATRICE (acute kidney injury) Obstructive uropathy 020 Encounters Date Type Department Care Team Description 01/09/2024 1:30 PM CDT Home Care Visit [address] [address] Doreen Hussein, JAMEL SN - HOME VISIT 12/26/2023 11:30 AM CDT Home Care Visit [address] [address] Doreen Hussein, JAMEL SN - HOME VISIT 12/23/2023 11:00 AM CDT Home Care Visit [address] [address] Raffy Carter, PT PT - DISCIPLINE DISCHARGE 12/19/2023 10:00 AM CDT Home Care Visit [address] [address] Doreen Hussein RN SN - HOME VISIT 12/16/2023 11:00 AM CDT Home Care Visit [address] [address] Raffy Carter, PT PT - HOME VISIT 12/13/2023 Orders Only [facility] Scanner 1 scan: (1-Ord) [facility], XR SACRUM COCCYX MIN 2V, 12/13/2023 12/07/2023 Telephone [facility] [address] [place] [address] Cesar Mccollum MD Follow Up 12/05/2023 Home Care Visit [address] [address] Doreen Hussein, RN SN - HOME VISIT 12/02/2023 10:30 AM CDT Home Care Visit [address] [address] Raffy Carter, PT PT - REASSESSMENT 12/02/2023 Plan of Care Documentation [address] [address] 11/30/2023 4:00 PM CDT Home Care Visit [address] [address] Doreen Hussein, RN SN - OASIS RECERTIFICATION 11/30/2023 10:30 AM CDT Office Visit [facility] [address] [place] [address] Cesar Mccollum MD Follow Up; Medication Management (Discuss plavix - not currently taking it) 11/30/2023 Travel 11/25/2023 11:00 AM CDT Home Care Visit [address] [address] Raffy Carter, PT PT - INITIAL ASSESSMENT 11/23/2023 8:00 AM CDT Home Care Visit [address] [address] Brittanie Prieto RN SN - HOME VISIT 11/21/2023 3:30 PM CDT Home Care Visit [address] [address] Rigo Heart RN SN - OASIS RESUMPTION OF CARE 11/18/2023 Home Care Visit [address] [address] Rufina Cobsy, RN CARE COORDINATION 11/14/2023 Home Care Visit [address] [address] Raffy Carter, PT PT - OASIS TRANSFER 11/11/2023 10:30 AM CDT Home Care Visit [address] [address] Raffy Carter, PT PT - HOME VISIT 11/09/2023 9:00 AM CDT Home Care Visit [address] [address] Barbara Fuentes RN SN - HOME VISIT 11/07/2023 Home Care Visit [address] [address] Rufina Cosby, RN CARE COORDINATION 11/04/2023 10:30 AM CDT Home Care Visit [address] [address] Raffy Carter, PT PT - HOME VISIT 10/31/2023 11:00 AM CDT Home Care Visit [address] [address] Doreen Hussein, JAMEL SN - HOME VISIT 10/28/2023 10:30 AM CDT Home Care Visit [address] [address] Raffy Carter, PT PT - HOME VISIT 10/25/2023 11:30 AM CDT Home Care Visit [address] [address] Raffy Carter, PT PT - REASSESSMENT 10/24/2023 11:00 AM CDT Home Care Visit [address] [address] Doreen Hussein, JAMEL SN - HOME VISIT 10/24/2023 10:00 AM CDT Home Care Visit [address] [address] Liz Fang, SCAN COORDINATOR PHOTOGRAPHIC DOUBLE - HOME VISIT 10/21/2023 12:00 PM CDT Home Care Visit [address] [address] Raffy Carter, PT PT - HOME VISIT 10/20/2023 10:35 AM CDT Office Visit [address] [address] Cesar Mccollum MD Follow Up; Concerns (Discuss protocol for hyperbaric treatment at hospital) 10/20/2023 Travel 10/19/2023 9:45 AM CDT Home Care Visit [address] [address] Rigo Heart, JAMEL SN - HOME VISIT 10/18/2023 Home Care Visit [address] [address] Milli Torre, RN CARE COORDINATION 10/17/2023 3:00 PM CDT Home Care Visit [address] [place] [address] Raffy Carter, PT PT - HOME VISIT 10/17/2023 10:00 AM CDT Home Care Visit [facility] [address] [place] [address] Liz Fang, SCAN COORDINATOR PHOTOGRAPHIC DOUBLE - INITIAL ASSESSMENT from Last 3 Months Immunizations Name Administration [...] Sign Reading Time Taken Comments Blood Pressure 110/65 01/09/2024 1:25 PM CDT Pulse 88 01/09/2024 1:25 PM CDT Temperature 36.7 ??C (98.1 ??F) 01/09/2024 1:25 PM CD T Respiratory Rate 15 12/23/2023 11:10 AM CDT Oxygen Saturation 98% 01/09/2024 1:25 PM CDT Inhaled Oxygen Concentration - - Weight 80.6 kg (177 lb 9.6 oz) 11/30/2023 10:38 AM CDT Height 177.1 cm (5' 9.72) 07/21/2023 9:05 AM CD T Body Mass Index 25.69 07/21/2023 9:05 AM CDT Plan of Treatment Upcoming Encounters Date Type Department Care Team (Late st Contact Info) Description 01/16/2024 4:00 AM CDT Home Care Visit [facility] [address] [address] Doreen Hussein, JAMEL [address] [place] [phone] 01/23/2024 4:00 AM CDT Home Care Visit [facility] [address] [address] Doreen Hussein, JAMEL [address] [place] [phone] Health Maintenance Due Date Last Done Comments [...] 4 Medical Devices Implanted Type Area Supervisor Ovens Device Identifier Shelf Expiration Date Model / Serial / Lot Stent Uret [id number] Contour - [id number] Implanted:Qty: 1 on 07/18/2023 by Nicola Ware MD at [facility] Right: Ureter [facility] 02/27/2026 [id number] / / [id number] Procedures Procedure Name Priority Date/Time Associated Diagnosis Comments SCAN-RADIOLOGY REPORT 12/13/2023 12:00 AM CDT HEMOGLOBIN Routine 11/30/2023 11:45 AM CDT Chronic blood loss anemia from Last 3 Months Results * SCAN-RADIOLOGY REPORT (12/13/2023 12:00 AM CDT) Anatomical Region Laterality Modality Other Scanner OTHER * (ABNORMAL) HEMOGLOBIN (11/30/2023 11:45 AM CDT) HEMOGLOBIN 10.4(L) 13.5 - 17.5 g/dL 11/30/2023 11:50 AM CDT [facility] MCV 92 80 - 100 fL 11/30/2023 11:50 AM CDT [facility] Blood BLOOD SPECIMEN / Unknown Venipuncture / Unknown 11/30/2023 11:45 AM CDT 11/30/2023 11:45 AM CDT Cesar Mccollum MD HEMATOLOGY Performing Organization Address City/State/[facility] Co de Phone Number [facility] [address] [place] [address], from Last 3 Months Advance Directives Documents on File Type Date Recorded Patient Learn To Swim Instructor Expl anation Healthcare Directive 05/15/2021 022 * [...] Code Status Discussion: Reviewed Preferences Care Teams Mixer Runner Relationship Specialty Start Date End Date Cesar Mccollum MD [address] [place] [address] PCP - General Family Practice 03/04/20 Nicola Ware MD [address] [place] [address] Surgery - Urology 03/13/20 Mireya Tan MD [address] [place] [phone] Hematology - Pathology 03/13/20 [facility], [facility] [address] [place] [address] 09/29/23
--- OUTSIDE RECORDS SUMMARY | 2024-01-13 08:54 | XMS_ITS | Encounter Summary ---
Author Organization [facility] Address [address] [place] [address] Care Team Providers Care Java J2Ee Architect Name Role Phone Elsewhere, Pcp Primary Care Provider Unavailabl e Reason for Visit * Reason Comments Catheter Care Plan Encounter Details Date Type Department Care Team (Late st Contact Info) Description 10/14/2023 Documentation Department of Urology in [place], [place] [address] [place] [phone] Paula Hernandez M.D. [address] [place] [address] Catheter Care Plan Social History Tobacco Use [...] Care Plan - Catheter Exchange General Information [facility]/ Patient Name: Kalen Vega Date: 1940 Health Care Provider(s) Medical Provider(s) Cesar Mccollum M.D. Institution: No address on file [place], [place] Urology Provider(s) Chief Urology residents Last seen by Paula Hernandez M.D. Institution: [facility] Treatment Summary Diagnosis Hydronephrosis; hematuria; metastatic prostate cancer; radiation cystitis Treatment Surgery []Yes [x] No Surgery Date(s) Surgical Procedure/Location/Findings Current Treatment Information/Follow-up Care Plan Frequency of Catheter Changes (i.e. every 4 weeks) every 4 weeks Catheter Information Type: Coude red rubber Size:20F Reference #: [id number] Catheter Prescription Expires NA Last seen by [...] on filedocumented in this encounter Care Teams Java J2Ee Architect Relationship Specialty Start Date End Date Elsewhere, Pcp PCP - General Internal Medicine 08/13/23 documented as of this encounter
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
--- OUTSIDE RECORDS SUMMARY | 2024-01-13 08:54 | XMS_ITS | Encounter Summary ---
Author Organization [facility] Address [address] [place] [address] Care Team Providers Care Batting Machine Operator Insulation Name Role Phone Elsewhere, Pcp Primary Care [...] your living situation today? [facility] 11/15/2023 Sex and Gender Information Value Date Recorded Sex Assigned at Not on file Gender Identity Not on file Sexual Orientation Not on file documented as of this encounter Plan of Treatment Not on file documented as of this encounter Visit Diagnoses Not on filedocumented in this encounter Care Teams Batting Machine Operator Insulation Relationship Specialty Start Date End Date Elsewhere, Pcp PCP - General Internal Medicine 08/13/23 documented as of this encounter
--- OUTSIDE RECORDS SUMMARY | 2024-01-13 08:54 | XMS_ITS | Encounter Summary ---
Author Organization [facility] Address [address] [place] [address] Care Team Providers Care Aerial Installer Name Role Phone Elsewhere, Pcp Primary [...] documented as of this encounter Care Teams Aerial Installer Relationship Specialty Start Date End Date Elsewhere, Pcp PCP - General Internal Medicine 08/13/23 documented as of this encounter
--- OUTSIDE RECORDS SUMMARY | 2024-01-13 08:54 | XMS_ITS | Encounter Summary ---
Author Organization [facility] Address [address] [place] [address] Care Team Providers Care Variety Saw Operator Name Role Phone Elsewhere, Pcp Primary Care Provider Unavailabl e Reason for Visit * Reason Onset Date Comments Oncology records request 11/10/2023 Encounter Details Date Type Department Care Team (Latest Contact Info) Description 11/10/2023 Clinical Communication Department of Urology in [place], [place] [address] [place] [phone] Burke Strauss M.D. [address] [place] [phone] Oncology records request Social History Tobacco Use [...] a [facility] place to live 11/15/2023 Sex [...] Information was filled out and faxed to [facility], Dr. Mireya Tan clinic per Dr. Strauss. Will wait for these to come through and notify Dr. Strauss for his review. [facility] documented in this encounter Plan of Treatment Not on file documented as of this encounter Visit Diagnoses Not on filedocumented in this encounter Care Teams Variety Saw Operator Relationship Specialty Start Date End Date Elsewhere, Pcp PCP - General Internal Medicine 08/13/23 documented as of this encounter
--- OUTSIDE RECORDS SUMMARY | 2024-01-13 08:54 | XMS_ITS | Encounter Summary ---
Author Organization [facility] Address [address] [place] [address] Care Team Providers Care Scouring Machine Operator Name Role Phone Elsewhere, Pcp Primary Care Provider Unavailabl e Reason for Referral * Outpatient (Routine) - Closed Specialty Diagnoses / Procedures Referred By Leyla t Referred To Contact Urology Burke Strauss M.D. [address] [place] [phone] [facility] Referral ID Status Reason Start Date Expiration Date Visits Re quested Visits Authorized [id number] Closed 11/09/2023 05/10/2025 1 1 * Outpatient (Routine) - Authorized Specialty Diagnoses / Procedures Referred By Contaraceli t Referred To Contact Diagnoses Retention Urinary Chronic Procedures URO Urethral cath change (UCC) Burke Strauss M.D. [address] [place] [phone] [facility] Region Referral ID Status Reason Start Date Expiration Date V isits Requested Visits Authorized [id number] Authorized 11/09/2023 11/08/2024 15 15 Reason for Visit * Reason Comments Consult Discuss catheter thomas nges * Appointment Request (Routine) - Closed Specialty Diagnoses / Procedures Referred By Leyla rosenthal Referred To Contact Urology Referral ID Status Reason Start Date Expiration Date Visits Re quested Visits Authorized [id number] Closed 10/27/2023 10/26/2024 1 1 Encounter Details Date Type Department Care Team (Late st Contact Info) Description 11/09/2023 11:00 AM CDT Office Visit Department of Urology in [place], [place] [address] [place] [phone] Burke Strauss M.D. [address] [place] [phone] Primary Malignant Neoplasm Of Prostate (HCC) (Primary Dx); Retention Urinary Chronic; Hematuria Gross Discharge Disposition: Home or Self Care Social History Tobacco Use Types Packs/Day Years Used Date Smoking Tobacco: Never Smokeless Tobacco: Never [facility] [employer] Answer Date Recorded In the past 12 months has [facility] electric, gas, oil, or water [employer] threatened to shut off services in [...] ILLNESS Patient presents to establish care from [facility]. He has multiple urologic issues [...] the past few days. Original plan from [place] was to exchange his left nephrostomy tube in 3 months, due 12/14/2023. He reports getting good output from the left neph tube without hematuria. His radiation cystitis, radiation proctitis and sacral ulcer currently being treated with hyperbaric oxygen therapy through the [facility] in [facility]. He has completed 19 of 45 planned treatments and expects to finish that course in early December. Metastatic prostate cancer is being managed by [facility], Dr. Mireya Tan. Release of [...] an antegrade nephrogram through Interventional Radiology in [place] prior to nephrostomy tube removal. documented in [...] Gross documented in this encounter Care Teams Scouring Machine Operator Relationship Specialty Start Date End Date Elsewhere, Pcp PCP - General Internal Medicine 08/13/23 documented as of this encounter
--- OUTSIDE RECORDS SUMMARY | 2024-01-13 08:54 | XMS_ITS | Encounter Summary ---
Author Organization [facility] Address [address] [place] [address] Care Team Providers Care Sustainable Communities Designer Name Role Phone Elsewhere, Pcp Primary Care Provider Unavailabl e Encounter Details Date Type Department Care Team (Late st Contact Info) Description 11/09/2023 Clinical Communication Department of Urology in [place], [place] [address] [place] [phone] Burke Strauss M.D. [address] [place] [phone] Social History Tobacco Use Types Packs/Day Years [...] a [facility] place to live 11/15/2023 Sex [...] on filedocumented in this encounter Care Teams Sustainable Communities Designer Relationship Specialty Start Date End Date Elsewhere, Pcp PCP - General Internal Medicine 08/13/23 documented as of this encounter
--- OUTSIDE RECORDS SUMMARY | 2024-01-13 08:54 | XMS_ITS | Encounter Summary ---
Author Organization [facility] Address [address] [place] [address] Care Team Providers Care Tenterer Name Role Phone Elsewhere, Pcp Primary Care [...] th e electric, gas, oil, or water [employer] threatened to shut off services in your [...] [facility] 11/15/2023 Sex and Gender [...] on filedocumented in this encounter Care Teams Tenterer Relationship Specialty Start Date End Date Elsewhere, Pcp PCP - General Internal Medicine 08/13/23 documented as of this encounter
--- OUTSIDE RECORDS SUMMARY | 2024-01-13 08:54 | XMS_ITS | Encounter Summary ---
Author Organization [facility] Address [address] [place] [address] Care Team Providers Care Inspector And Adjuster Golf Club Head Name Role Phone Elsewhere, Pcp Primary Care Provider Unavailabl e Reason for Referral * Outpatient (Routine) - Authorized Specialty Diagnoses / Procedures Referred By Contac t Referred To Contact Diagnoses Hematuria Gabe Neal M.D. [address] [place] [address] Referral ID Status Reason Start Date Expiration Date V isits Requested Visits Authorized [id number] Authorized 11/17/2023 05/18/2025 1 1 Encounter Details Date Type Department Care Team (Late st Contact Info) Description 11/14/2023 11:38 PM CDT - 11/17/2023 3:55 PM CDT Hospital Encounter [facility], Fifth Floor [address] [place] [address] Eliceo Guerrier M.D., Ph.D. [address] [place] [address] Sylvie Álvarez M.B.B.S., M.D. [address] [place] [address] Rashawn Vences M.D. [address] [place] [address] Gabe Buckley M.D. [address] [place] [address] Smith Peter (Primary Dx) Discharge Disposition: Home-Health Care Svc Social History Tobacco Use Types Packs/Day Years Used Date Smoking Tobacco: Never Smokeless Tobacco: Never [facility] Utilities Answer Date Recorded In the past [address] [facility] [place], gas, oil, or water [employer] threatened to shut off services in your [...] DISCHARGE SUMMARY BRIEF OVERVIEW Discharge Hospital: Hospital: [facility] Discharge Provider: Gabe Buckley M.D. Primary Care Providers: Dr. 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 Cesar Mccollum to discuss restarting OUTPATIENT FOLLOW UP Scheduled Appointments 12/07/2023 10:15 AM [facility]ULT[facility] SPECIALTY NURSE 01 NPNC; URO [...] filter and chronic pressure wounds presented to [facility] 11/14/23 gross hematuria including around his indwelling [...] Dr. Gabe Rivas DO. PGY-1 [facility] Family Medicine Residency [place] Associated attestation - Gabe Buckley M.D. - [...] this encounter Progress Notes * Chary Romero L.I.C.S.W. - 11/17/2023 2:18 PM CDT SUBJECTIVE Patient is a 83 y.o. male who was admitted to [facility] 11/14/2023 due to Hematuria Gross [R31.0]. Patient was accompanied by son, Kar. This board writer finalized arrangements for resumption of home [...] Graft Initial (HCC) Inferior Vena Cava Filter Literature Teacher (Current) Anticoagulant Treatment ASSESSMENT / PLAN ASSESSMENT Patient was not formally assessed by this board writer. INTERVENTION This board writer sent a service reconnection, including resumption of care order, to resumption of home health care services to [facility] as the fax number matches the fax number provided by intake earlier in the week. PLAN Patient will discharge home today with family and resumption of home health care services. * Nereida Bolton, SHANNAN, LD - 11/17/2023 12:40 PM CDT Clinical [...] Muscle Mass: Normal Fluid Accumulation: Absent Reduced Automotive Fleet Supervisor Strength: Not applicable This is in the [...] 83 y.o. male who was admitted to [facility] 11/14/2023 due to Hematuria Gross [R31.0]. Patient was accompanied by daughter (Mindy) and son (Kar). This board writer continues to assist in home health [...] Initial Deficiency Iron Hyperlipidemia Hypertension Essential Primary Literature Teacher Current Use Of Other Agents Affecting Estrogen [...] Graft Initial (HCC) Inferior Vena Cava Filter Literature Teacher (Current) Anticoagulant Treatment ASSESSMENT / PLAN ASSESSMENT Patient was not formally assessed by this board writer. INTERVENTION Patient's daughter, Mindy, provided this board writer with contact information for Doreen Javier, nurse workforce investment act career manager for [employer]; [phone]. This board writer left Doreen a voicemail, requesting a [...] bag -monitor CMP for kidney function -continue SURGICAL ENDOSCOPIST tamsulosin -continue SURGICAL ENDOSCOPIST enzalutamide -urine culture, per urology # Coronary artery disease without angina pectoris, status post 6 stents # History of DVTs, status post IVC filter # Hyperlipidemia Is on both Plavix and Xarelto at home. -start Xarelto 11/16/2023 so response can be monitored while hospitalized -continue SURGICAL ENDOSCOPIST amlodipine -continue SURGICAL ENDOSCOPIST rosuvastatin -continue SURGICAL ENDOSCOPIST metoprolol # Chronic Pressure Wound, Coccyx -continue wound care -offloading as much as possible Non-severe (moderate) Malnutrition (11/15/23) The patient meets the ASPEN Criteria of malnutrition based on: Energy Intake: Less than 75% of estimated energy requirement for greater than or equal to 1 month Interpretation of Weight Loss: 7.5% 3 months Body Fat: Normal Muscle Mass: Normal Fluid Accumulation: Absent Reduced Automotive Fleet Supervisor Strength: Not applicable This is in the [...] Buckley M.D. Candelaria Rivas DO. PGY-1 [facility] Medicine Residency [place] Associated attestation - Gabe Buckley M.D. 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 Urology recommendations on restarting blood thinners. -may consider restarting one or both on 11/16/2023 so response can be monitored while hospitalized -continue SURGICAL ENDOSCOPIST amlodipine -continue SURGICAL ENDOSCOPIST rosuvastatin -continue SURGICAL ENDOSCOPIST metoprolol # Chronic Pressure Wound, Coccyx -continue wound care -offloading as much as possible Non-severe (moderate) Malnutrition (11/15/23) The patient meets the ASPEN Criteria of malnutrition based on: Energy Intake: Less than 75% of estimated energy requirement for greater than or equal to 1 month Interpretation of Weight Loss: 7.5% 3 months Body Fat: Normal Muscle Mass: Normal Fluid Accumulation: Absent Reduced Automotive Fleet Supervisor Strength: Not applicable This is in the [...] Rashawn Vences M.D. Candelaria Rivas DO. PGY-1 [facility] Residency [place] Associated attestation - Rashawn Vences M.D. - [...] other issues. He showed up in the [place] [facility] room yesterday with complaints of a [...] and visits for hematuria. Patient presented at [facility] yesterday because of bleeding around his Medina catheter. He reportsthat he noticed dark red blood in his Medina on Tuesday which cleared. However, yesterday morning he woke up to notice that there was no urine in his Mdeina catheter but there was leaking of blood around his Medina and down his legs. He reports clear urine in his nephrostomy bag. Patient denies pain, no fever. No nausea or vomiting, no abdominal pain. Patient presented at [facility] where urology was contacted, manual bladder irrigation [...] anemia, hemoglobin now 8.2. Patient presented to [facility] ED because of bleeding around his Medina catheter. At [facility], patient had manual bladder irrigation with normal [...] ([facility]) Dietitian Consult (Hospital) Referring Provider: Malcolm Gibson Instant O Dietitian consult ([facility]) Referring Provider: Malcolm Gibson Instant O Clinical Note Types: Initial Assessment/Consult [...] had lost 28lbs during his stay in [place] as he was NPO for12 days then [...] Muscle Mass: Normal Fluid Accumulation: Absent Reduced Automotive Fleet Supervisor Strength: Not applicable This is in the [...] 84.1 kg BMI (Calculated): 26.6 kg/m?? % Campbell Body Weight: 111 % IBW Adjusted Body [...] Discharge Planning, Other (comment) Primary Language: Estonian Fresh Work Inspector Services Used: No Sexuality/Pronoun: / Person(s) present [...] Proctitis #10 Inferior Vena Cava Filter #11 Literature Teacher (Current) Anticoagulant Treatment Social History Marital Status: Family / Household: Lives with and son, Gavin. Has another son (Kar) and a daughter (Mindy). Support System: spouse and children Spirituality/Jain/Cultural Factors: None History: No Highest Level of [...] Assistive Devices: Eyeglasses, Hearing aid(s) [facility] Provided: residential once weekly for wound care, PT, social work, Makenzie workforce investment act career manager Transportation: Support from family Baseline Services/Resources Primary care clinic and provider: ELSEWHERE, PCP Anticipated Needs Functional Status: Tasks appropriate to patient's age/development, Transportation use (drive car, use taxi/bus) Assistive Devices: Eyeglasses, Hearing aid(s) Services/Resources: Home health Agency Name: [facility] Provided: residential once weekly for wound care, PT, social work, DarwinRN workforce investment act career manager Does the patient need discharge transport arranged?: No Anticipated Discharge Destination: Home-Health Care Sv OBJECTIVE Substance Abuse no symptoms Mental Health Mental Health History: Patient reports no mental health history Patient reports no current concerns Mental Health Treatment History No history of Psychiatric Treatment noted Suicide Risk and Safety Risk Assessment: C-SSRS Short Version: [place] Suicide Severity Rating Scale (Do this one [...] a wound clinic the other day. This board writer spoke to intake with [facility] however the only information provided is that patient is served by the [facility] location and receives senior care, physical therapy, and social work and the fax number for discharge paperwork was provided. Interventions Psychosocial assessment completed. Provided supportive services. Provided education regarding the role of social work. Plan It is anticipated patient will return home with family and resume services through [facility]. Martha Gardiner 11/15/2023 * Jerri Toledo R.N., Oralia, [facility] - 11/15/2023 10:54 AM CDTAssociated Order(s): IP [...] and visits for hematuria. Patient presented at [facility] yesterday because of bleeding around his Medina catheter. He reportsthat he noticed dark red blood in his Medina on Tuesday which cleared. However, yesterday morning he woke up to notice that there was no urine in his Mdeina catheter but there was leaking of blood around his Medina and down his legs. He reports clear urine in his nephrostomy bag. Patient denies pain, no fever. No nausea or vomiting, no abdominal pain. Patient presented at [facility] where urology was contacted, manual bladder irrigation with normal saline was performed, and patient was started on CBI. Patient transferred to [place] [facility] for further management. WOUND ASSESSMENT: Wound Type: Pressure Injury MC IP Pressure Injury Staging: Stage 3 Wound Location: Coccyx Wound Orientation: Mid Wound Tunnel/Induration: Length 1 cm, Width 0.5 cm, and Depth 0.3 cm. Wound Bed Tissue: Red and Granulation tissue 100% Leslee-Wound Skin: Blanchable erythema, Maceration, and Natalia PLAN: COCCYX: DAILY 1. Cleanse wound with [...] limit sliding down in chair. Please contact [facility] RNs if you have any question or concerns regarding wound care. Jerri Toledo R.N., LYNNE at [phone] Starla Méndez R.N., LE at [phone] * Zachery Tanner, ARUN, C.N.P., M.S. - [...] follows with Medical Oncology Dr. Tan in [place], [place]. Right hydronephrosis and right atrophic kidney [...] 08/30. Currently undergoing outpatient hyperbaric O2 in [facility]. Mr. Vega currently admitted to [facility] in the setting of recurrent gross hematuria. He wasseen in evaluation at [facility] in the setting of concern [...] in comparison to historical imaging. Ultimately [address] catheter was placed and patient was hand irrigated and initiated on CBI.Patient was transferred to [facility] for ongoing management. Urinalysis 11/15/2023 with greater [...] undergoing outpatient HBO (hyperbaric oxygenation therapy) in [facility]. Recommend to continue HBO in the [...] hematuria. Outpatient appointment scheduled on 12/07/2023 in [place] with Urology. Could consider discussion about catheter removal/formal voiding trial in the outpatient setting as to limit catheter irritation/potential infection risk contributing to hematuria. Significant pyuria on urinalysis in the setting of his gross hematuria would recommend urine culture. 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 Tan in [place], [place]. Per subjective report today undetectable PSA. [...] discussed with Dr. Valdez. Zachery Tanner APRN INFRASTRUCTURE ANALYST Associated attestation - Manav Valdez M.D. - [...] in this encounter Nursing Notes * Bety Wu, Jose Roberto.S.N., R.N. - 11/17/2023 3:55 PM CDT INPATIENT [...] CARE: Potential discharge tomorrow * Mariajose Berry RNarendra - 11/16/2023 5:27 AM CDT INPATIENT SHIFT [...] Summary: Pt is a direct admit from [facility] ED. He has chronic indwelling catheter, with prostate cancer history. He noticed urine was bloody red. While being seen in [place], 3 waycatheter was inserted and CBI started. [...] filter and chronic pressure wounds presented to [facility] 11/14/23 gross hematuria including around his indwelling [...] Type Priority Associated Diagnoses Orde r Schedule Non-[place] [facility] referral Outpatient Referral Routine Hematuria Gross Ordered: [...] Candelaria Rivas D.O. LAB BLOOD ADD-ON [facility] [address] [place] [address], [facility] in [place] [address] [place] [address] * (ABNORMAL) Basic Metabolic Panel (11/17/2023 7:24 [...] CDT Candelaria Rivas D.O. LAB BLOOD ADD-ON [facility] [address] [place] [address], [facility] [place] [address] * Glucose, POCT (11/17/2023 6:45 AM CDT) Glucose, POCT, B 107 70 - 140 mg/dL 11/17/2023 6:45 AM CDT MKTO Blood 11/17/2023 6:45 AM CDT 11/17/2023 7:03 AM CDT Generic Rals LAB POCT ORDERABLES- MANUAL Performing Organization Address [facility] Co de Phone Number [facility] [address] [place] [address] * (ABNORMAL) Hemoglobin (11/16/2023 4:43 PM CDT) Hemoglobin 9.2(L) 13.2 - 16.6 g/dL 11/16/2023 5:13 PM CDT MKTO Blood (Blood, Venous) 11/16/2023 4:43 PM CDT 11/16/2023 5:10 PM CDT Madelyn Cesar D.O. LAB BLOOD ADD-ON Performing Organization Address [facility] Co de Phone Number [facility] [address] [place] [address], [place] [address] * (ABNORMAL) Comprehensive Metabolic Panel (11/16/2023 6:25 [...] AM CDT 11/16/2023 6:56 AM CDT Rashawn eVnces M.D. LAB BLOOD ADD-ON [facility] [place] [address], [facility] in [place] [address] [place] [address] * (ABNORMAL) CBC with Differential, Blood (11/16/2023 [...] [facility] Co de Phone Number [facility] [address] [place] [address], [facility] in [place] [address] [place] [id number] * Transfuse Red Blood Cells : (11/15/2023 6:35 PM CDT) Madelyn Cesar DJonahOJonah BLOOD TRANSFUSION OR DERABLES * Transfuse Red [...] Sylvie Wright M.D. LAB BLO OD ADD-ON [facility] [address] [place] [address], [facility] MKTO [facility] in [place] [address] [place] [address] * (ABNORMAL) CBC with Differential, Blood (11/15/2023 [...] LAB BLO OD ADD-ON Performing Organization Address [facility] Co de Phone Number [facility] [address] [place] [address], [facility] MKTO [facility] in [place] [address] [place] [address] * ECG 12 Lead (11/15/2023 6:47 AM CDT) Ventricular Rate ECG/Min 65 BPM MUSE MD Interval 144 ms MUSE QRSD Interval 76 ms MUSE QT Interval 430 ms MUSE QTC Interval 447 ms MUSE P [place] -7 degrees MUSE R [place] 9 degrees MUSE T Wave [place] 19 degrees MUSE 11/15/2023 6:47 AM CDT [...] M.D. ECG ORD ERABLES Performing Organization Address City/[facility] Co de Phone Number [...] 6:25 AM CDT 11/15/2023 6:34 AM CDT Slyvie Wright M.D. LAB URI NE ORDERABLES [facility] [address] [place] [address], [facility] MKTO [facility] [place] [address] * (ABNORMAL) Urinalysis with Microscopic if Indicated [...] to determine due to color interference Specific [place] SEE COMMENT 1.001 - 1.035 11/15/2023 8:03 AM CDT MKTO Comment:Unable to determine due to color interference Urobilinogen SEE COMMENT 0.2 - 1.0 mg/dL 11/15/2023 8:03 AM CDT MKTO Comment:Unable to determine due to color interference Urine (Urine, Midstream) 11/15/2023 6:25 AM CDT 11/15/2023 6:34 AM CDT Sylvie Wright M.D. LAB URI NE ORDERABLES [facility] [address] [place] [address], [facility] [place] [address] * Bacterial Culture, Aerobic + Susceptibility, Urine (11/15/2023 6:24 AM CDT) Urine Culture Urogenital microbiota, susceptibilities not performed per laboratory criteria. 11/16/2023 11:36 AM CDT [facility] Urine (Urine, Indwelling Catheter) 11/15/2023 6:24 AM CDT 11/15/2023 9:29 AM CDT Comment:Specimen Source Site : Urine Zachery Tanner APRN C.N.P., M.S. LAB MICROBIOLOGY - GENERAL ORDERABLES [facility] [address] [place] [address], [facility] MKTO [facility] in [place] [address] [place] [address] documented in this encounter Visit Diagnoses Diagnosis Hematuria Gross- Primary Hematuria Gross Primary Malignant Neoplasm Of Prostate (HCC) Anemia In Neoplastic Disease Literature Teacher Current Use Of Other Agents Affecting Estrogen [...] med- asked pt family to bring in.) 08 (Not Given - Provider: Arik Jolly, R.N. [...] Gonzalez R.N.) 0952 (Given - Provider: Dorothea R West, R.N.) 0801 (Given - Provider: Arik Jolly, [...] R.N.) documented in this encounter Care Teams Inspector And Adjuster Golf Club Head Relationship Specialty Start Date End Date Elsewhere, Pcp PCP - General Internal Medicine 08/13/23 documented as of this encounter
--- OUTSIDE RECORDS SUMMARY | 2024-01-13 08:54 | XMS_ITS | Encounter Summary ---
Author Organization [facility] Address [address] [place] [address] Care Team Providers Care Hall Supervisor Name Role Phone Elsewhere, Pcp Primary Care Provider Unavailabl e Encounter Details Date Type Department Care Team (Late st Contact Info) Description 11/14/2023 Documentation Department of Urology in [place], [place] [address] [place] [address] Sowmya Aviles, ARUN, C.N.P., M.S.N. [address] [place] [phone] Social History Tobacco Use Types Packs/Day Years [...] have a [facility] place to live 11/15/2023 Sex and Gender Information Value Date Recorded Sex Assigned at Not on file Gender Identity Not on file Sexual Orientation Not on file documented as of this encounter Progress Notes * Sowmya Aviles, ARUN, C.N.P., M.S.N. - 11/14/2023 3:31 PM CDT Contacted via [facility] regarding this patient. Not personally seen or evaluated as patient is in the [facility] Emergency Department. Kalen Vega is a 83 y.o. male with medical comorbidities of acute DVT on Plavix, coronary artery disease status post stent, degenerative joint disease, hyperlipidemia, lymphedema, prediabetes. 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 Tan in [place], [place]. Right hydronephrosis and right atrophic kidney [...] was readmitted to hospital. He presented to [facility] Emergency Department today for evaluation of hematuria and no drainage into urinary catheter. He reports leakage around the catheter of urine and blood clots. A 22 Turkmen three-way catheter was placed, patient was hand [...] on filedocumented in this encounter Care Teams Hall Supervisor Relationship Specialty Start Date End Date Elsewhere, Pcp PCP - General Internal Medicine 08/13/23 documented as of this encounter
--- OUTSIDE RECORDS SUMMARY | 2024-01-13 08:54 | XMS_ITS | Encounter Summary ---
Author Organization [facility] Address [address] [place] [address] Care Team Providers Care Take Away Attendant Name Role Phone Elsewhere, Pcp Primary Care Provider Unavailabl e Reason for Visit * Reason Comments Urinary Retention * Outpatient (Routine) - Closed Specialty Diagnoses / Procedures Referred By Contaraceli t Referred To Contact Diagnoses Hematuria Procedures URO Urethral cath change (UCC) Paula Hernandez M.D. [address] [place] [phone] [facility] Referral ID Status Reason Start Date Expiration Date Visits Re quested Visits Authorized [id number] Closed 09/15/2023 09/14/2024 1 1 Encounter Details Date Type Department Care Team (Late st Contact Info) Description 10/14/2023 1:00 PM CDT Procedure visit Department of Urology in [place], [place] [address] [place] [phone] Paula Hernandez M.D. [address] [place] [phone] Khadra Miller R.N. [address] [place] [phone] Hematuria Social History Tobacco Use Types Packs/Day [...] a [facility] place to live 09/09/2023 Sex and [...] Hematuria documented in this encounter Care Teams Take Away Attendant Relationship Specialty Start Date End Date Elsewhere, Pcp PCP - General Internal Medicine 08/13/23 documented as of this encounter
--- OUTSIDE RECORDS SUMMARY | 2024-01-13 08:54 | XMS_ITS | Encounter Summary ---
Author Organization [facility] Address [address] [place] [address] Care Team Providers Care Pr Specialist Name Role Phone Elsewhere, Pcp Primary Care Provider Unavailabl e Encounter Details Date Type Department Care Team (Late st Contact Info) Description 10/27/2023 Clinical Communication Department of Urology in [place], [place] [address] [place] [phone] Burke Strauss M.D. [address] [place] [address] Social History Tobacco Use Types Packs/Day Years Used Date Smoking Tobacco: Never Smokeless Tobacco: Never [facility] Utilities Answer Date Recorded In the past 12 months has e electric, gas, oil, or water [employer] threatened to shut off services in your [...] 2:15 PM CDT Patient follows urology in [place] but would like to transfer his care to [place] as it is closer to home. It looks like for Hematuria. Is this patient ok to see you? He has a catheter in and will need cath changes going forward. documented in this encounter Plan of Treatment Not on file documented as of this encounter Visit Diagnoses Not on filedocumented in this encounter Care Teams Pr Specialist Relationship Specialty Start Date End Date Elsewhere, Pcp PCP - General Internal Medicine 08/13/23 documented as of this encounter
--- OUTSIDE RECORDS SUMMARY | 2024-01-13 08:55 | XMS_ITS | Data Portability ---
Author Organization [facility], [facility] Address [address] [place] [address] Care Team Providers Care Riveter Portable Machine Name Role Phone MASOUD SAUER Primary Care Provider [phone] Assessment No assessment recorded. Plan of Treatment Reminders Order Date Submit Date Provider Last Modified By Organization Details Last Modified Time Details Appointments None recorded . Lab urinalys is, dipstick 2023 024 [email or web address] [facility], [address] [place], [address], 4 15:08:54 culture, urine 2023 024 [facility], [address], [place], [address], 4 10:11:11 Referral None recorded . Procedures None recorded . Surgeries cystosco py with ureteral stent exchange (SURG) 2021 022 [email or web address] Not available 16:50:47 cystosco py with ureteral stent exchange (SURG) 2021 022 [email or web address] Not available 15:46:30 Imaging None recorded . Medication Orders Myrbetri q 50 mg tablet,e xtended release 2021 022 [id number], [address] [place], [place], [phone], 2 17:50:02 Bactrim DS 800 mg-160 mg tablet 2023 024 [email or web address] [facility][id number], [address] [place], [place], [phone], 16:19:28 Patient TargetsNo targets recorded. Patient InstructionsNo [...] for provi sydni revie w. Not Available [facility] [address], [place], [address], 06/25/2023 10:11:11 06/23/19 24 06/23/2023 urina lysis , dipst ick Color-Status Red Not Available [facility] [address], [place], [address], 06/23/2023 15:08:10 06/23/19 24 06/23/2023 urina lysis , dipst ick pH-Status 7.5 Not Available [facility] [address], [place], [address], 06/23/2023 15:08:10 06/23/19 24 06/23/2023 urina lysis , dipst ick Protein-Stat us >=9.0 Not Available [facility] [address], [place], [address], 06/23/2023 15:08:10 06/23/19 24 06/23/2023 urina lysis , dipst ick Nitrates-Sta tus negati ve Not Available [facility] [address], [place], [address], 06/23/2023 15:08:10 06/23/19 24 06/23/2023 urina lysis , dipst ick Blood-Status Large Not Available [facility] [address], [place], [address], 06/23/2023 15:08:10 06/23/19 24 06/23/2023 urina lysis , dipst ick Leuko-Status Negati ve Not Available [facility] [address], [place], [address], 06/23/2023 15:08:10 06/23/19 24 06/23/2023 urina lysis , dipst ick Specimen Type Voided Not Available [facility] [address], [place], [address], 06/23/2023 15:08:10 07/04/19 24 07/01/2023 CT, abdom en + pelvi s, w/o contr ast No observ ation record ed. [email or web address] [facility] [address], [place], [address], 09/01/2023 14:40:29 07/18/19 24 07/18/2023 XR, kidne y + urete r + bladd er No observ ation record ed. [email or web address] [facility] [address], [place], [address], 07/22/2023 15:56:19 Result Notes None recorded. Procedures Surgical History Date Name Laterality Status Provider Name and Address Organization Details Recorded Time Bladder Scan completed Rabia Mariaelena [facility] 06/23/2023 15:08:00 Cystoscopy completed Nicola Ware MD [address], [place], [address], [facility] 12/30/2021 17:11:17 Colonoscopy completed Nicola Ware MD [address], [place], [address], [facility] 12/30/2021 17:11:22 Imaging Results Imaging Date Name Status LastModified by Organiz ation Details LastModified Time 07/01/2023 CT, abdomen + pelvis, w/o contrast completed [address] [facility] [address] [facility], [place], [address], 09/01/2023 14:40:29 07/18/2023 XR, kidney + ureter + bladder completed [address], [place], [address], 07/22/2023 15:56:19 Procedure Notes None recorded. Medical [...] PREP INSTRUCTI ONS RECEIVED FROM [facility] active Not Available Not Available No t Available furosemide 20 mg tablet TAKE 1 TABLET BY MOUTH DAILY active Not Available Not Available No t Available cefuroxime axetil 500 mg tablet active Not Available Not Available No t Available polyethylen e glycol 3350 17 gram/dose oral powder MIX AND DRINK DIRECTED IN [facility] PY PREP INSTRUCTI ONS RECEIVED FROM [facility] active Not Available Not Available No [...] Updated DateTime 12/30/2021 177.8 cm 27.4 kg/m2 44293.14 g Nicola Ware MD [address] [place] [address], [address] 12/30/2021 17:10:12 Date Recorded Body height Body mass index (BMI) Body weight Provider Name and Address Organization Details Last Updated DateTime 03/12/2022 177.8 cm 27.4 kg/m2 35076.14 g Rabia Ferrell [facility] 03/12/2022 13:55:47 Social History Question Answer Notes LastModified by Organizat ion Details LastModified Time Tobacco Smoking Status Never Smoker Nicola Ware MD [address] [place] [address],[address], [address], [facility] 12/30/2021 17:11:00 What Is [...] Diagnosis/Indication Diagnosis SNOMED-CT Code Diagnosis ICD10 Code [id number] Nicola Ware MD [facility] [address] [place] [address] 12/30/2021 16:01:19 01/01/2022 09:36:50 Increased frequency of urination 683898844 R35.0 Malignant tumor of prostate 062768083 C61 Hydronephrosis 88896943 N13.30 [id number] Aliza Landeros [facility] [address] [place] [address] 03/12/2022 13:13:50 03/15/2022 14:00:47 Increased frequency of urination 744871061 R35.0 Malignant tumor of prostate 053039815 C61 Hydronephrosis 26192876 N13.30 [id number] Nicola Ware MD [facility] [address] [place] [address] 06/23/2023 14:16:52 06/24/2023 08:40:38 Blood in urine 40381355 R31.9 Health Concerns Section Related Observation LastModified by Organization Detai ls LastModified Time None Recorded Concern Status LastModified by Organization Details LastModified Time None Recorded Advance Directives Directive None Recorded Payers Encounter Date Sequence Insurance Name Policy Number Policy Krishnan Covered Member ID Krishnan Member ID Guarantor Name 12/30/2021 1 [employer] (MEDICARE REPLACEMENT/ ADVANTAGE - PPO) [id number] José Miguel D Braucher [id number] José Miguel D Braucher 03/12/2022 1 [employer] (MEDICARE REPLACEMENT/ ADVANTAGE - PPO) [id number] José Miguel D Braucher [id number] José Miguel D Braucher 06/23/2023 1 [employer] (MEDICARE REPLACEMENT/ ADVANTAGE - PPO) [id number] José Miguel Srinivasan Braucher [id number] José Miguel D Braucher Notes Date Note Type Note Provider Name and Address Organization Details Recorded Time 12/30/2021 text/html HPI Notes: Excer pt from hospital consultation... 81 y.o. year old male who was admitted to [facility] for gross hematuria & CT findings. Onset [...] of the history. Nicola Ware MD [address] [facility] [address] [facility], [place], [address], [facility] 12/30/2021 23:07:10 03/12/2022 text/html HPI Notes: Excer pt from hospital consultation... 81 y.o. year old male who was admitted to [facility] for gross hematuria & CT findings. Onset [...] some of the history. Nicola Ware MD [address] [place] [address],[address], [address], [facility] 03/12/2022 17:21:47 06/23/2023 text/html HPI Notes: 83 Y male here after calling triage this AM with hematuria/pain with urination. Patient has stent in place, last exchange 02/08/2022. 06/23/23 visit completed by Curry Ware MD [address] [place] [address],[address], [place], [address], [facility] 06/23/2023 16:19:33
== END 2024-01-13 08:50 | disposition home or self-care (01) ==
LOC: WOUND 08:49
PROVIDERS: PCP Family Medicine; Visit Provider Nurse Practitioner Family
DX: N30.41 Irradiation cystitis with hematuria (principal); L89.153 Pressure ulcer of sacral region, stage 3; C61 Malignant neoplasm of prostate; K62.7 Radiation proctitis; N13.30 Unspecified hydronephrosis; D64.9 Anemia, unspecified; Y84.2 Radiological procedure and radiotherapy as the cause of abnormal reaction of the patient, or of later complication, without mention of misadventure at the time of the procedure
CPT/HCPCS: 97597; G0277

== ENCOUNTER 2024-01-17 09:00 | Outpatient (RCR) | payer MEDICARE, OTHER, SELFPAY | END 2024-02-09 23:59 | disposition home or self-care (01) | LOC: WOUND 09:00 | PROVIDERS: PCP Family Medicine; Visit Provider Surgery | DX: N30.41 Irradiation cystitis with hematuria (principal); L89.153 Pressure ulcer of sacral region, stage 3; K62.7 Radiation proctitis; C61 Malignant neoplasm of prostate; D64.9 Anemia, unspecified; Y84.2 Radiological procedure and radiotherapy as the cause of abnormal reaction of the patient, or of later complication, without mention of misadventure at the time of the procedure | CPT/HCPCS: G0277 ==

== ENCOUNTER 2024-01-20 08:54 | Outpatient (CLI) | payer MEDICARE, OTHER, SELFPAY ==
--- OUTSIDE RECORDS SUMMARY | 2024-01-20 08:57 | XMS_ITS | Clinical Summary ---
Author Organization [facility] Address [address] [place] [address] Care Team Providers Care Package Delivery Room Service Runner Name Role Phone Cesar Mccollum Primary Care Provider [phone] Allergies No known active allergies Medications Medication [...] this topic Medical Devices Implanted Type Area Report Developer Device Identifier Shelf Expiration Date Model / Serial / Lot Stent Ureteral Polaris Ultra [id number] - [id number] Implanted:Qty : 1 on 02/08/2022 by Nicola Ware MD at [facility] Stent Right: Ureter [employer] [id number] 10/08/2024 [id number] Explanted Type Area Report Developer Device Identifier Shelf Expiration Date Model / Serial / Lot Stent Came Out Of The Right Ureter Explanted:Qty: 1 on 02/08/2022 by Nicola Ware MD at [facility] Right: Urethra Advance Directives For more information, please contact: [phone] Documents on File Type Date Recorded 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
--- OUTSIDE RECORDS SUMMARY | 2024-01-20 08:57 | XMS_ITS | Encounter Summary ---
Author Organization [facility] Address [address] [place] [address] Care Team Providers Care Tree Planter Name Role Phone Elsewhere, Pcp Primary Care Provider Unavailabl e Reason for Visit * Reason Onset Date Comments Communication 01/18/2024 Questions on ret urn visit with Dr. Strauss Encounter Details Date Type Department Care Team (Latest Contact Info) Description 01/18/2024 Clinical Communication Department of Urology in [place], [place] [address] [place] [phone] Burke Strauss M.D. [address] [place] [phone] Communication (Questions on return visit with Dr. Strauss) Social History Tobacco Use Types Packs/Day Years [...] encounter Miscellaneous Notes * Telephone Encounter - Factor, Keli Wray R.N. - 01/19/2024 8:21 AM CDT Patient had appointment on 01-11-[address] Strauss for Chronic Urinary Retention. Patient also hadurethral catheter change scheduled. Patient has hx; Prostate cancer and is currently undergoing radiation. Fill and pull procedure attempted on 01-11-24 with immediate leaking noted around urethral catheter. Patient has left Nephrostomy tube and was seen for IR Nephrostomy Tube Exchange Left on 01-12-24. PROCEDURE DETAILS / FINDINGS Indwelling tube was retracted into a minor calyx. Left nephrostomy tube exchange with placement of a new 10.2 Mexican 25 cm pigtail nephrostomy tube into the renal pelvis. Please see Radiology Report for full details. PLAN Follow up with urology as previously planned. Routine tube exchange in 3 months if the patient retains the tub Patient is calling questioning what is the next steps for his plan of care? documented in this encounter Plan of Treatment Not on file documented as of this encounter Visit Diagnoses Not on filedocumented in this encounter Care Teams Tree Planter Relationship Specialty Start Date End Date Elsewhere, Pcp PCP - General Internal Medicine 08/13/23 documented as of this encounter
--- OUTSIDE RECORDS SUMMARY | 2024-01-20 08:57 | XMS_ITS | Encounter Summary ---
Author Organization [facility] Address [address] [place] [address] Care Team Providers Care Ultrasound Coordinator Name Role Phone Elsewhere, Pcp Primary Care Provider Unavailabl e Reason for Visit * Reason Onset Date Comments Communication 01/16/2024 Follow up questi ons Encounter Details Date Type Department Care Team (Latest Contact Info) Description 01/16/2024 Clinical Communication Department of Urology in [place], [place] [address] [place] [phone] Burke Strauss M.D. [facility] [place] [phone] Communication (Follow up questions) Social History Tobacco Use Types Packs/Day Years [...] [facility] place to live 11/15/2023 Sex and Gender Information Value Date Recorded Sex Assigned at Not on file Gender Identity Not on file Sexual Orientation Not on file documented as of this encounter Plan of Treatment Not on file documented as of this encounter Visit Diagnoses Not on filedocumented in this encounter Care Teams Ultrasound Coordinator Relationship Specialty Start Date End Date Elsewhere, Pcp PCP - General Internal Medicine 08/13/23 documented as of this encounter
--- OUTSIDE RECORDS SUMMARY | 2024-01-20 08:57 | XMS_ITS | Referral Summary ---
Author Organization [facility] Address [address] [place] [address] Care Team Providers Care Drafter Tool Design Name Role Phone Cesar Mccollum Primary Care Provider [phone] Allergies No known active allergies Medications Medication [...] on file Medical Devices Implanted Type Area Front Desk Lead Device Identifier Shelf Expiration Date Model / Serial / Lot Stent Ureteral Polaris Ultra [id number] - [id number] Implanted:Qty : 1 on 02/08/2022 by Nicola Ware MD at [facility] Stent Right: U[employer]ter [employer] [id number] 10/08/2024 [id number] Explanted Type Area Front Desk Lead Device Identifier Shelf Expiration Date Model / Serial / Lot Stent Came Out Of The Right Ureter Explanted:Qty: 1 on 02/08/2022 by Nicola Ware MD at [facility] Right: Urethra Advance Directives For more information, please contact: [phone] Documents on File Type Date Recorded 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
--- OUTSIDE RECORDS SUMMARY | 2024-01-20 08:57 | XMS_ITS | Clinical Summary ---
Author Organization [facility] Address [address] [place] [address] Care Team Providers Care Head Of Product Name Role Phone Elsewhere, Pcp Primary Care Provider Unavailabl e Source Comments Patient records contain information from all sites at [facility]. For routine questions regarding patient records, call [phone] during business hours, M-F 8:00 AM - 5:00 PM Central Time. 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 Communication (Questions on return visit with Dr. Strauss) 01/16/2024 Clinical Communication Department of Urology in [place], [place] [address] [place] [address] Burke Strauss M.D. Communication (Follow up questions) 01/12/2024 8:30 AM CDT - 01/12/2024 9:52 AM CDT Hospital Encounter Department of Radiology in [address] [phone] Ingrid Desai M.D. Chow, Andrew Z, M.D. Nephrostomy Status Post (HCC) (Primary Dx); Primary Malignant Neoplasm Of Prostate (HCC) Discharge Disposition: Home or Self Care 01/11/2024 10:18 AM CDT - 01/11/2024 11:59 PM CDT Hospital Encounter Department of Laboratory Medicine in [address] [address] Burke Strauss M.D. Retention Urinary Chronic Discharge Disposition: Home or Self Care 01/11/2024 10:00 AM CDT Office Visit Department of Urology in [address] [address] Burke Strauss M.D. Retention Urinary Chronic (Primary Dx); Radiation Therapy Cystitis With Hematuria; Primary Malignant Neoplasm Of Prostate (HCC); Nephrostomy Status Post (HCC) Discharge Disposition: Home or Self Care 01/11/2024 9:00 AM CDT Procedure visit Department of Urology in [address] [address] Burke Strauss M.D. Factor, Piper L, RJonahNJonah Retention Urinary Chronic Discharge Disposition: Home or Self Care 01/11/2024 Clinical Communication Department of Radiology in [address] [address] Ingrid Desai M.D. 01/09/2024 2:59 PM CDT - 01/09/2024 6:29 PM CDT Emergency [facility] [address] [place] [phone] Sergio Raza M.D. Nephrostomy Status Post (HCC) (Primary Dx) Discharge Disposition: Home or Self Care 01/09/2024 Documentation Department of Urology in [place], [place] [address] [place] [phone] Corin Ring M.D. 12/13/2023 9:15 AM CDT Nurse Only Department of Urology in [address] [address] Burke Strauss M.D. Gray, Margaret A, L.P.N. Nurse Visit (Catheter Irrigation ) Discharge Disposition: Home or Self Care 12/08/2023 9:30 AM CDT Office Visit Department of Urology in [address] [address] Burke Strauss M.D. Retention Urinary Chronic (Primary Dx); Anemia; Anemia In Neoplastic Disease; Chief Legal Officer (Current) Anticoagulant Treatment Discharge Disposition: Home or Self Care 12/07/2023 12:19 PM CDT - 12/07/2023 11:59 PM CDT Hospital Encounter Department of Laboratory Medicine in [address] [address] Burke Strauss M.D. Anemia; Hematuria Gross; Retention Urinary Chronic Discharge Disposition: Home or Self Care 12/07/2023 10:30 AM CDT Office Visit Department of Urology in [address] [address] Burke Strauss M.D. Hematuria Gross (Primary Dx); Radiation Therapy Cystitis With Hematuria; Anemia; Retention Urinary Chronic Discharge Disposition: Home or Self Care 11/30/2023 6:44 PM CDT - 11/30/2023 8:06 PM CDT [facility] [address] [place] [phone] Carmen Cherry M.D., M.P.H. Leakage Of Other Urinary Catheter Initial (HCC) (Primary Dx) Discharge Disposition: Home or Self Care 11/15/2023 10:40 AM CDT Ancillary Procedure Department of Wound Ostomy 11/14/2023 11:38 PM CDT - 11/17/2023 3:55 PM CDT Hospital Encounter [facility], Fifth Floor [address] [place] [address] Eliceo Guerrier M.D., Ph.D. Sylvie Álvarez M.B.B.S., M.D. Pokhai, Gabriel, M.D. Burkland, Carl B, M.D. Hematuria Gross (Primary Dx) Discharge Disposition: Home-Health Care [facility] 11/14/2023 10:44 AM CDT - 11/14/2023 10:23 PM CDT [facility] [address] [place] [phone] Sergio Raza M.D. Hematuria (Primary Dx); Malfunction Mechanical Urethral Catheter Initial (HCC) Discharge Disposition: [facility] 11/14/2023 Documentation Department of Urology in [address] [address] Sowmya Aviles APRN, C.N.P., M.S.N. 11/14/2023 Intake [facility] 11/10/2023 Clinical Communication Department of Urology in [address] [address] Burke Strauss M.D. Oncology records request 11/09/2023 11:00 AM CDT Office Visit Department of Urology in [address] [address] Burke Strauss M.D. Primary Malignant Neoplasm Of Prostate (HCC) (Primary Dx); Retention Urinary Chronic; Hematuria Gross Discharge Disposition: Home or Self Care 11/09/2023 Clinical Communication Department of Urology in [address] [address] Burke Strauss M.D. 10/27/2023 Clinical Communication Department of Urology in [address] [address] Burke Strauss M.D. from Last 3 Months Social History Tobacco Use Types Packs/Day Years Used Date Smoking Tobacco: Never Smokeless Tobacco: Never Tobacco Cessation:Counseling Given: Not Answered [facility] Utilities Answer Date Recorded In the past 12 months has [facility], [employer], oil, or water [employer] threatened to shut off services in your [...] 09/07/2016 Pneumococcal vaccine (65+ years) Completed 07/21/19 24 Fall Risk Screen (Annual) Completed 01/12/2024 Medical Devices Implanted Type Area Glaze Mixer Device Identifier Shelf Expiration Date Model / Serial / Lot Clp Hrzn Ti 6 Clp Lg Orng - [id number] Implanted:Qt y: 1 on 08/15/2023 by Boubacar Brock M.D. at [facility] Hardware e.g. pins/screws /rods Abdomen [employer] [id number] 02/29/2028 [id number] / / [id number] Clp Hrzn Ti 6 Clp Lg Orng - [id number] Implanted:Qt y: 1 on 08/15/2023 by Boubacar Brock M.D. at [facility] Hardware e.g. pins/screws /rods Abdomen [employer] [id number] 02/29/2028 [id number] / / [id number] Clp Hrzn Ti 6 Clp Md Monty - [id number] Implanted:Qt y: 1 on 08/15/2023 by Boubacar Brock M.D. at [facility] Hardware e.g. pins/screws /rods Abdomen [employer] [id number] 03/13/2028 [id number] / / [id number] 1 Clp Hrzn Ti 6 Clp Md Monty - [id number] Implanted:Qt y: 1 on 08/15/2023 by Boubacar Brock M.D. at [facility] Hardware e.g. pins/screws /rods Abdomen [employer] [id number] 03/21/2028 [id number] / / [id number] 3 Stnt Uret Inl 6fx24 - [id number] Implanted:Qt y: 1 on 08/15/2023 by Jakob De Paz M.D. at [facility] Ureteral Stent N/A: Ureter C.[employer].Bard [id number] 11/18/2027 [id number] / / [id number] Procedures Procedure Name Priority Date/Time Associated Diagnosis [...] medications. Patient education provided by a care assembler steam and gas turbine. Patient was ready to learn with no apparent learning barriers were identified. Post-procedure care explained; patient expressed understanding of the content. PROCEDURE DETAILS: Sedation: None. Sedation time: Not applicable. Estimated Blood Loss: Less than 10 mL. TECHNIQUE: Imaging guidance for catheter exchange: Fluoroscopy with permanent image storage Access side: Left Catheter: 10.2 Lithuanian 25 cm pigtail nephrostomy catheter Technique: The indwelling 10.2 [place]ian catheter was injected with contrast. A guidewire was inserted through the catheter but was unable to advance the catheter back into the renal pelvis. Micropuncture was used to place a new wire in tandem with the catheter into the renal pelvis. The indwelling catheter was removed and exchanged for a new 10.2 [place]ian catheter. A permanent image was saved to [...] medications. Patient education provided by a care assembler steam and gas turbine. Patient was ready to learn withno apparent learning barriers were identified. Post-procedure careexplained; patient expressed understanding of the content. PROCEDURE DETAILS: Sedation: None. Sedation time: Not applicable. Estimated Blood Loss: Less than 10 mL. TECHNIQUE: Imaging guidance for catheter exchange: Fluoroscopy with permanent imagestorage Access side: Left Catheter: 10.2 [place]ian 25 cm pigtail nephrostomy catheter Technique: The indwelling 10.2 [place] catheter was injected with contrast.A guidewire was inserted through the catheter but was unable to advancethe catheter back into the renal pelvis. Micropuncture was used to place anew wire in tandem with the catheter into the renal pelvis. The indwelling catheter was removed andexchanged for a new 10.2 [place] catheter. A permanent image was saved toPACS. The catheter was connected to a gravity [...] into the renal pelvis. Ingrid Desai M.D. [facility] IR PROCEDURES * (ABNORMAL) Basic Metabolic [...] Burke Strauss M.D. LAB BLOOD ADD-ON [facility] [address] [place] [address], [facility] NPRG [facility] [address] [place] [address] * CT Abdomen Pelvis with IV Contrast [...] Sergio Raza M.D. LAB BLOOD ADD-ON [facility] [address] [place] [address], [address] [address] * (ABNORMAL) Lipase (01/09/2024 4:29 PM CDT) Lipase, P 12(L) 13 - 60 U/L 01/09/2024 4: 46 PM CDT NPRG Blood (Blood, Venous) 01/09/2024 4:29 PM CDT 01/09/2024 4:32 PM CDT Sergio Raza M.D. LAB BLOOD ADD-ON [facility] [address] [place] [address], [address] [address] * (ABNORMAL) Hemoglobin (12/07/2023 12:25 PM CDT) Only the most recent of2 resultswithin the time period is included. Hemoglobin 9.2(L) 13.2 - 16.6 g/dL 12/07/2023 12:33 PM CDT NPRG Blood (Blood, Venous) 12/07/2023 12:25 PM CDT 12/07/2023 12:27 PM CDT Burke Strauss M.D. LAB BLOOD ADD-ON [facility] [address] [place] [address], [facility] NPRG [place] [address] [place] [address] * Creatinine with Estimated GFR (12/07/2023 12:25 PM CDT) Creatinine 1.13 0.74 - 1.35 mg/dL 12/07/2023 12:49 PM CDT NPRG Estimated GFR (eGFR) 64 >=60 mL/min/BSA 12/07/2023 12:49 PM CDT NPRG Comment: Estimated GFR calculated using the 2020 CKD_EPI creatinine equation. Blood (Blood, Venous) 12/07/2023 12:25 PM CDT 12/07/2023 12:27 PM CDT Burke Strauss M.D. LAB BLOOD ADD-ON [facility] [address] [place] [address], [place] [address] [place] [address] * (ABNORMAL) CBC without Differential (11/17/2023 7:24 [...] CDT Candelaria Rivas D.O. LAB BLOOD ADD-ON [facility] [address] [place] [address] * Glucose, POCT (11/17/2023 6:45 AM CDT) Glucose, POCT, B 107 70 - 140 mg/dL 11/17/2023 6:45 AM CDT [facility] Blood 11/17/2023 6:45 AM CDT 11/17/2023 7:03 AM CDT Generic Rals LAB POCT ORDERABLES- MANUAL [facility] [address] [place] [address] * (ABNORMAL) CBC with Differential, Blood (11/16/2023 [...] CDT Rashawn Vences M.D. LAB BLOOD ADD-ON [facility] [address] [place] [address], [place] MK[facility] in [place] [address] [place] [address] * (ABNORMAL) Comprehensive Metabolic Panel (11/16/2023 6:25 [...] M.D. LAB BLOOD ADD-ON Performing Organization Address City/[facility]/ZIP Co de Phone Number [facility] [address] [place] [address], [place] [address] * Transfuse Red Blood Cells : (11/15/2023 6:35 PM CDT) Madelyn Cesar D.O. BLOOD TRANSFUSION OR DERABLES * Testing Location (11/15/2023 11:09 AM CDT) Testing Location [facility] DEFAULT 11/15/2023 11:47 AM CDT [facility]TO Blood 11/15/2023 11:0 9 AM CDT 11/15/2023 11:47 AM CDT Sergio Raza M.D. LAB BLOOD BANK TEST ORDERABLES Performing Organization Address [facility] de Phone Number [facility] [address] [place] [address], [place] [address] * Coccyx-Wound Ostomy Image Exam (11/15/2023 10:40 [...] RAD IMAGI NG PROCEDURES Performing Organization Address City/[facility]/ZIP Co de Phone Number [facility] NA * ECG 12 Lead (11/15/2023 6:47 AM CDT) Pathologist [facility] Ventricular Rate ECG/Min 65 BPM MUSE AR Interval 144 ms MUSE QRSD Interval 76 ms MUSE QT Interval 430 ms MUSE QTC Interval 447 ms MUSE P [place] -7 degrees MUSE R [place] 9 degrees MUSE T Wave [place] 19 degrees MUSE 11/15/2023 6:47 AM CDT [...] M.D. ECG ORD ERABLES Performing Organization Address [facility] de Phone Number MUSE NA * (ABNORMAL) Urinalysis with Microscopic if Indicated (11/15/2023 6:25 AM CDT) Pathologist [facility] Source Urine, Urine, Midstream 11/15/2023 7:49 AM [...] to determine due to color interference Specific [place] SEE COMMENT 1.001 - 1.035 11/15/2023 8:03 AM CDT MKTO Comment:Unable to determine due to color interference Urobilinogen SEE COMMENT 0.2 - 1.0 mg/dL 11/15/2023 8:03 AM CDT MKTO Comment:Unable to determine due to color interference Urine (Urine, Midstream) 11/15/2023 6:25 AM CDT 11/15/2023 6:34 AM CDT Sylvie Wright M.D. LAB URI NE ORDERABLES [facility] [address] [place] [address], [place] [address] * (ABNORMAL) Microscopic Automated (11/15/2023 6:25 AM [...] LAB URI NE ORDERABLES Performing Organization Address [facility] Co de Phone Number [facility] [address] [place] [address] * Bacterial Culture, Aerobic + Susceptibility, Urine (11/15/2023 6:24 AM CDT) Urine Culture Urogenital microbiota, susceptibilities not performed per laboratory criteria. 11/16/2023 11:36 AM CDT [facility] Urine (Urine, Indwelling Catheter) 11/15/2023 6:24 AM CDT 11/15/2023 9:29 AM CDT Comment:Specimen Source Site : Urine Zachery Tanner APRN C.N.P., M.S. LAB MICROBIOLOGY - GENERAL ORDERABLES Performing Organization Address [facility] Co de Phone Number [facility] [address] [place] [address], [place] [address] * CT Abdomen Pelvis without IV Contrast [...] BLOOD BANK TEST ORDERABLES Performing Organization Address City/[facility]/ZIP Co de Phone Number [facility] [address] [place] [address], [facility] NPRG [place] [address] [place] [address] * Type and Screen (with Reflex Antibody [...] BLOOD BANK TEST ORDERABLES Performing Organization Address City/[facility]/ZIP Co de Phone Number [facility] [address] [place] [address], [facility] NPRG [facility] [address] [place] [address] from Last 3 Months Advance Directives For more information, please contact: [phone] * Full Code (Latest Code Status on [...] Full Code: Discussed Care Teams Head Of Product Relationship Specialty Start Date End Date Elsewhere, Pcp PCP - General Internal Medicine 08/13/23
--- OUTSIDE RECORDS SUMMARY | 2024-01-20 08:57 | XMS_ITS | Referral Summary ---
Author Organization [facility] Address [address] [place] [address] Care Team Providers Care Professional Security Officer Name Role Phone Elsewhere, Pcp Primary Care Provider Unavailabl e Source Comments Patient records contain information from all sites at [facility]. For routine questions regarding patient records, call [phone] during business hours, M-F 8:00 AM - 5:00 PM Central Time. Record requests for emergency care only can be directed to [phone] at any time.[facility] Encounters Date Type Department Care Team Description 01/18/2024 Clinical Communication Department of Urology in [address] [address] Burke Strauss M.D. Communication (Questions on return visit with Dr. Strauss) 01/16/2024 Clinical Communication Department of Urology in [place], [place] [address] [place] [address] Burke Strauss M.D. Communication (Follow up questions) 01/12/2024 8:30 AM CDT - 01/12/2024 9:52 AM CDT Hospital Encounter Department of Radiology in [address] [phone] Ingrid Desai M.D. Chow, Andrew Z, M.D. Nephrostomy Status Post (HCC) (Primary Dx); Primary Malignant Neoplasm Of Prostate (HCC) Discharge Disposition: Home or Self Care 01/11/2024 Clinical Communication Department of Radiology in [place], [place] [address] [place] [address] Ingrid Desai M.D. 01/11/2024 10:18 AM CDT - 01/11/2024 11:59 PM CDT Hospital Encounter Department of Laboratory Medicine in [address] [phone] Burke Strauss M.D. Retention Urinary Chronic Discharge Disposition: Home or Self Care 01/11/2024 10:00 AM CDT Office Visit Department of Urology in [address] [address] Burke Strauss M.D. Retention Urinary Chronic (Primary Dx); Radiation Therapy Cystitis With Hematuria; Primary Malignant Neoplasm Of Prostate (HCC); Nephrostomy Status Post (HCC) Discharge Disposition: Home or Self Care 01/11/2024 9:00 AM CDT Procedure visit Department of Urology in [address] [address] Burke Strauss M.D. Factor, Keli Wray, R.NJonah Retention Urinary Chronic Discharge Disposition: Home or Self Care 01/09/2024 Documentation Department of Urology in [place], [place] [address] [place] [phone] Corin Ring M.D. 01/09/2024 2:59 PM CDT - 01/09/2024 6:29 PM CDT Emergency [facility] [address] [place] [phone] Sergio Raza M.D. Nephrostomy Status Post (HCC) (Primary Dx) Discharge Disposition: Home or Self Care 12/13/2023 9:15 AM CDT Nurse Only Department of Urology in [address] [address] Burke Strauss M.D. Gray, Margaret A, L.P.N. Nurse Visit (Catheter Irrigation ) Discharge Disposition: Home or Self Care 12/08/2023 9:30 AM CDT Office Visit Department of Urology in [address] [address] Burke Strauss M.D. Retention Urinary Chronic (Primary Dx); Anemia; Anemia In Neoplastic Disease; Production Expediter (Current) Anticoagulant Treatment Discharge Disposition: Home or Self Care 12/07/2023 12:19 PM CDT - 12/07/2023 11:59 PM CDT Hospital Encounter Department of Laboratory Medicine in [address] [address] Burke Strauss M.D. Anemia; Hematuria Gross; Retention Urinary Chronic Discharge Disposition: Home or Self Care 12/07/2023 10:30 AM CDT Office Visit Department of Urology in [address] [address] Burke Strauss M.D. Hematuria Gross (Primary Dx); Radiation Therapy Cystitis With Hematuria; Anemia; Retention Urinary Chronic Discharge Disposition: Home or Self Care 11/30/2023 6:44 PM CDT - 11/30/2023 8:06 PM CDT Emergency [facility] [address] [place] [phone] Carmen Cherry M.D., M.P.H. Leakage Of Other Urinary Catheter Initial (HCC) (Primary Dx) Discharge Disposition: Home or Self Care 11/14/2023 11:38 PM CDT - 11/17/2023 3:55 PM CDT Hospital Encounter [facility], Fifth Floor [address] [place] [phone] Eliceo Guerrier M.D., Ph.D. Sylvie Álvarez M.B.B.S., M.D. Pokhai, Gabriel, M.D. Gabe Buckley M.D. Hematuria Gross (Primary Dx) Discharge Disposition: [place]-Health [place] [facility] 11/15/2023 10:40 AM CDT Ancillary Procedure Department of Wound Ostomy 11/14/2023 Documentation Department of Urology in [address] [address] Sowmya Aviles APRN C.N.PJonah, M.S.N. 11/14/2023 Intake [facility] 11/14/2023 10:44 AM CDT - 11/14/2023 10:23 PM CDT Emergency [facility] [address] [place] [phone] Sergio Raza M.D. Hematuria (Primary Dx); Malfunction Mechanical Urethral Catheter Initial (HCC) Discharge Disposition: Acute Care Hospital 11/10/2023 Clinical Communication Department of Urology in [address] [address] Burke Strauss M.D. Oncology records request 11/09/2023 Clinical Communication Department of Urology in [address] [address] Burke Strauss M.D. 11/09/2023 11:00 AM CDT Office Visit Department of Urology in [address] [address] Burke Strauss M.D. Primary Malignant Neoplasm Of Prostate (HCC) (Primary Dx); Retention Urinary Chronic; Hematuria Gross Discharge Disposition: Home or Self Care 10/27/2023 Clinical Communication Department of Urology in [address] [address] Burke Strauss M.D. from Last 3 Months Allergies No [...] 11/15/2023 Hyperlipidemia 11/15/2023 Hypertension Essential Primary 11/15/2023 Production Expediter Current Use Of Oth er Agents Affecting Estrogen Receptors And Estrogen Levels 11/15/2023 Presence Of Other Vascular Implants And Grafts 0 11/15/2023 Other Specified Disorders Of Bladder 11/15/2023 Other Retention Of Urine 11/15/2023 PreDiabetes 11/15/2023 Presence Of Urogenital Implants 11/15/2023 Unspecified Complication Of Genitourinary Prosthetic Device Implant And Graft Initial 11/15/2023 Inferior Vena Cava Filter 11/15/2023 Production Expediter (Current) Anticoagulant Treatment 09/2023 Presence Of Other [...] Never Tobacco Cessation:Counseling Given: Not Answered [facility] Utilities Answer Date Recorded In the past 12 months has [employer], [employer], oil, or water [employer] threatened to shut off services in your [...] [employer] place to live 11/15/2023 Sex and Gender [...] on file Medical Devices Implanted Type Area Property Insurance Agent Device Identifier Shelf Expiration Date Model / Serial / Lot Clp Hrzn Ti 6 Clp Lg Orng - [id number] Implanted:Qt y: 1 on 08/15/2023 by Boubacar Brock M.D. at [facility] Hardware e.g. pins/screws /rods [employer] [id number] 02/29/2028 [id number] / / [id number] Clp Hrzn Ti 6 Clp Lg Orng - [id number] Implanted:Qt y: 1 on 08/15/2023 by Boubacar Brock M.D. at [facility] Hardware e.g. pins/screws /rods [employer] [id number] 02/29/2028 [id number] / / [id number] 4 Clp Hrzn Ti 6 Clp Md Monty - [id number] Implanted:Qt y: 1 on 08/15/2023 by Boubacar Brock M.D. at [facility] Hardware e.g. pins/screws /rods [employer] [id number] 03/13/2028 [id number] / / [id number] Clp Hrzn Ti 6 Clp Md Monty - [id number] Implanted:Qt y: 1 on 08/15/2023 by Boubacar Brock M.D. at [facility] Hardware e.g. pins/screws /rods [employer] [id number] 03/21/2028 [id number] / / [id number] 3 Stnt Uret Inl 6fx24 - [id number] Implanted:Qt y: 1 on 08/15/2023 by Jakob De Paz M.D. at [facility] Ureteral Stent N/A: Ureter [employer] [id number] 11/18/2027 [id number] / / [id number] Procedures Procedure Name Priority Date/Time Associated Diagnosis [...] medications. Patient education provided by a care steamfitter supervisor. Patient was ready to learn with no apparent learning barriers were identified. Post-procedure care explained; patient expressed understanding of the content. PROCEDURE DETAILS: Sedation: None. Sedation time: Not applicable. Estimated Blood Loss: Less than 10 mL. TECHNIQUE: Imaging guidance for catheter exchange: Fluoroscopy with permanent image storage Access side: Left Catheter: 10.2 Colombian 25 cm pigtail nephrostomy catheter Technique: The indwelling 10.2 Colombian catheter was injected with contrast. A guidewire was inserted through the catheter but was unable to advance the catheter back into the renal pelvis. Micropuncture was used to place a new wire in tandem with the catheter into the renal pelvis. The indwelling catheter was removed and exchanged for a new 10.2 Colombian catheter. A permanent image was saved to [...] medications. Patient education provided by a care steamfitter supervisor. Patient was ready to learn withno apparent learning barriers were identified. Post-procedure careexplained; patient expressed understanding of the content. PROCEDURE DETAILS: Sedation: None. Sedation time: Not applicable. Estimated Blood Loss: Less than 10 mL. TECHNIQUE: Imaging guidance for catheter exchange: Fluoroscopy with permanent imagestorage Access side: Left Catheter: 10.2 Colombian 25 cm pigtail nephrostomy catheter Technique: The indwelling 10.2 Colombian catheter was injected with contrast.A guidewire was inserted through the catheter but was unable to advancethe catheter back into the renal pelvis. Micropuncture was used to place anew wire in tandem with the catheter into the renal pelvis. The indwelling catheter was removed andexchanged for a new 10.2 Colombian catheter. A permanent image was saved toPEntraTympanic. The catheter was connected to a gravity [...] CDT Burke Strauss M.D. LAB BLOOD ADD-ON [facility] [address] [place] [address], [place] NPRG [facility] [address] [place] [address] * CT Abdomen Pelvis with IV Contrast [...] ribs, compatiblewith sclerotic metastases. Sergio Raza M.D. Prieto CT PROCEDURES * Hepatic Function Panel (01/09/2024 [...] CDT Sergio Raza M.D. LAB BLOOD ADD-ON [facility] [address] [place] [address], [facility] [place] [address] [address] [place] [address] * (ABNORMAL) Lipase (01/09/2024 4:29 PM CDT) Lipase, P 12(L) 13 - 60 U/L 01/09/2024 4: 46 PM CDT NPRG Blood (Blood, Venous) 01/09/2024 4:29 PM CDT 01/09/2024 4:32 PM CDT Sergio Raza M.D. LAB BLOOD ADD-ON Performing Organization Address City/[facility]/ZIP Co de Phone Number [facility] [address] [place] [address], [facility] [place] [address] [address] [place] [address] * (ABNORMAL) Hemoglobin (12/07/2023 12:25 PM CDT) Only the most recent of2 resultswithin the time period is included. Hemoglobin 9.2(L) 13.2 - 16.6 g/dL 12/07/2023 12:33 PM CDT NPRG Blood (Blood, Venous) 12/07/2023 12:25 PM CDT 12/07/2023 12:27 PM CDT Burke Strauss M.D. LAB BLOOD ADD-ON [facility] [address] [place] [address], [place] [address] [address] [place] [address] * Creatinine with Estimated GFR (12/07/2023 12:25 PM CDT) Creatinine 1.13 0.74 - 1.35 mg/dL 12/07/2023 12:49 PM CDT NPRG Estimated GFR (eGFR) 64 >=60 mL/min/BSA 12/07/2023 12:49 PM CDT NPRG Comment: Estimated GFR calculated using the 2020 CKD_EPI creatinine equation. Blood (Blood, Venous) 12/07/2023 12:25 PM CDT 12/07/2023 12:27 PM CDT Burke Strauss M.D. LAB BLOOD ADD-ON [facility] [address] [place] [address], [facility] NPRG [facility] [address] [place] [address] * (ABNORMAL) CBC without Differential (11/17/2023 7:24 [...] D.O. LAB BLOOD ADD-ON Performing Organization Address City/[facility]/ZIP Co de Phone Number [facility] [address] [place] [address] * Glucose, POCT (11/17/2023 6:45 AM CDT) Pathologist [facility] Glucose, POCT, B 107 70 - 140 mg/dL 11/17/2023 6:45 AM CDT MKTO Blood 11/17/2023 6:45 AM CDT 11/17/2023 7:03 AM CDT Generic Rals LAB POCT ORDERABLES- MANUAL Performing Organization Address [facility] Co de Phone Number [facility] [address] [place] [address], [place] [address] * (ABNORMAL) CBC with Differential, Blood (11/16/2023 6:25 AM CDT) Only the most recent of3 resultswithin the time period is included. Pathologist [facility] Hemoglobin 9.4(L) 13.2 - 16.6 g/dL 11/16/2023 [...] LAB BLOOD ADD-ON [facility] [place] [address], [facility] MKTO [facility] [place] [address] * (ABNORMAL) Comprehensive Metabolic Panel (11/16/2023 6:25 [...] CDT Rashawn Vences M.D. LAB BLOOD ADD-ON [facility] [place] [address], [facility] MKTO [facility] in [place] [address] [place] [address] * Transfuse Red Blood Cells : (11/15/2023 6:35 PM CDT) Madelyn Cesar D.O. BLOOD TRANSFUSION OR DERABLES * Testing Location (11/15/2023 11:09 AM CDT) Testing Location [facility] DEFAULT 11/15/2023 11:47 AM CDT MKTO Blood 11/15/2023 11:0 9 AM CDT 11/15/2023 11:47 AM CDT Sergio Raza M.D. LAB BLOOD BANK TEST ORDERABLES Performing Organization Address [facility]/ZIP Co de Phone Number [facility] [address] [place] [address], [facility] MKTO [facility] [place] [address] [place] [address] * Coccyx-Wound Ostomy Image Exam (11/15/2023 10:40 [...] RAD IMAGI NG PROCEDURES Performing Organization Address City/[facility] Co de Phone Number [facility] NA * ECG 12 Lead (11/15/2023 6:47 AM CDT) Ventricular Rate ECG/Min 65 BPM MUSE TX Interval 144 ms MUSE QRSD Interval 76 ms MUSE QT Interval 430 ms MUSE QTC Interval 447 ms MUSE P Ale[place] -7 degrees MUSE R [place] 9 degrees MUSE T Wave [place] 19 degrees MUSE 11/15/2023 6:47 AM CDT [...] to determine due to color interference Specific [place] SEE COMMENT 1.001 - 1.035 11/15/2023 8:03 AM CDT MKTO Comment:Unable to determine due to color interference Urobilinogen SEE COMMENT 0.2 - 1.0 mg/dL 11/15/2023 8:03 AM CDT MKTO Comment:Unable to determine due to color interference Urine (Urine, Midstream) 11/15/2023 6:25 AM CDT 11/15/2023 6:34 AM CDT Sylvie Wright M.D. LAB URI NE ORDERABLES Performing Organization Address [facility] Co de Phone Number [facility] [address] [place] [address], [place] [address] * (ABNORMAL) Microscopic Automated (11/15/2023 6:25 AM [...] LAB URI NE ORDERABLES Performing Organization Address [facility] Co de Phone Number [facility] [address] [place] [address], [address] [address] * Bacterial Culture, Aerobic + Susceptibility, Urine (11/15/2023 6:24 AM CDT) Urine Culture Urogenital microbiota, susceptibilities not performed per laboratory criteria. 11/16/2023 11:36 AM CDT [facility] Urine (Urine, Indwelling Catheter) 11/15/2023 6:24 AM CDT 11/15/2023 9:29 AM CDT Comment:Specimen Source Site : Urine Estrella Marmolejo APRNNAddison, M.S. LAB MICROBIOLOGY - GENERAL ORDERABLES [facility] [address] [place] [address], [facility] MKTO [facility] [place] [address] [place] [address] * CT Abdomen Pelvis without IV Contrast [...] Raza M.D. LAB BLOOD BANK TEST ORDERABLES [facility] [address] [place] [address], [facility] NPRG [facility] [address] [place] [address] * Type and Screen (with Reflex Antibody [...] BLOOD BANK TEST ORDERABLES Performing Organization Address City/State/[facility] Co de Phone Number [facility] [address] [place] [address], [facility] NPRG [place] [address] [address] [place] [address] from Last 3 Months Advance Directives For more information, please contact: [phone] * Full Code (Latest Code Status on [...] Answer Comments Full Code: Discussed Care Teams Professional Security Officer Relationship Specialty Start Date End Date Elsewhere, Pcp PCP - General Internal Medicine 08/13/23
--- OUTSIDE RECORDS SUMMARY | 2024-01-20 08:57 | XMS_ITS ---
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 Overview (11/15/2023): stent placements 2017 Complication Procedure Initial 11/15/2023 Deficiency Iron 11/15/2023 Hyperlipidemia 11/15/2023 Hypertension Essential Primary 11/15/2023 Financial Reporting Specialist Current Use Of Oth er Agents Affecting [...] On Elapsed Days Session Dose Total Dose [id number] 04/28/2020 32 300 cGy 6,000 cGy Lifetime Dose Tracking * Chemical Lifetime Dose Automatic Entry Manual Entr y Radiation 58.71 mGy 58.71 mGy 0 mGy Fluoro Time 6.905 minutes 6.905 minutes 0 minutes DAP (uGy-m2) 1,232.05 uGy-m2 1,232.05 uGy-m2 0 uGy-m2 Resolved Problems Problem Noted Date Diagnosed Date Resolved Date Hematuria Gross 08/31/2023 11/17/2023
--- OUTSIDE RECORDS SUMMARY | 2024-01-20 08:57 | XMS_ITS ---
Author Organization [facility] Address [address] [place] [address] Care Team Providers Care Budget Controller Name Role Phone Unavailable Unavailable Unavailable Surgery Details Not on file Complications Check Surgery Details section. Procedure Estimated Blood Loss Check Surgery Details section. Procedure Findings Check Surgery Details section. Procedure Specimens Taken Check Surgery Details section.
--- OUTSIDE RECORDS SUMMARY | 2024-01-20 08:58 | XMS_ITS | Encounter Summary ---
Author Organization [facility] Address [address] [place] [address] Care Team Providers Care Net Programmer Analyst Name Role Phone Elsewhere, Pcp Primary Care Provider Unavailabl e Reason for Referral * Outpatient (Routine) - Closed Specialty Diagnoses / Procedures Referred By Leyla t Referred To Contact Radiology Diagnoses Nephrostomy Status Post (HCC) Procedures IR Nephrostomy Tube Exchange Left Ingrid Desai M.D. [facility] [place] [address] [facility] Region Referral ID Status Reason Start Date Expiration Date Visits Re quested Visits Authorized [id number] Closed 01/11/2024 01/10/2025 1 1 Encounter Details Date Type Department Care Team (Late st Contact Info) Description 01/11/2024 Clinical Communication Department of Radiology in [address] [address] Ingrid Desai M.D. [address] [place] [phone] Social History Tobacco Use Types Packs/Day Years Used Date Smoking Tobacco: Never Smokeless Tobacco: Never [facility] Utilities Answer Date Recorded In [...] medications. Patient education provided by a care meat team member. Patient was ready to learn with no apparent learning barriers were identified. Post-procedure care explained; patient expressed understanding of the content. PROCEDURE DETAILS: Sedation: None. Sedation time: Not applicable. Estimated Blood Loss: Less than 10 mL. TECHNIQUE: Imaging guidance for catheter exchange: Fluoroscopy with permanent image storage Access side: Left Catheter: 10.2 Swedish 25 cm pigtail nephrostomy catheter Technique: The indwelling 10.2 Swedish catheter was injected with contrast. A guidewire was inserted through the catheter but was unable to advance the catheter back into the renal pelvis. Micropuncture was used to place a new wire in tandem with the catheter into the renal pelvis. The indwelling catheter was removed and exchanged for a new 10.2 Swedish catheter. A permanent image was saved to [...] medications. Patient education provided by a care meat team member. Patient was ready to learn withno apparent learning barriers were identified. Post-procedure careexplained; patient expressed understanding of the content. PROCEDURE DETAILS: Sedation: None. Sedation time: Not applicable. Estimated Blood Loss: Less than 10 mL. TECHNIQUE: Imaging guidance for catheter exchange: Fluoroscopy with permanent imagestorage Access side: Left Catheter: 10.2 Swedish 25 cm pigtail nephrostomy catheter Technique: The indwelling 10.2 Swedish catheter was injected with contrast.A guidewire was inserted through the catheter but was unable to advancethe catheter back into the renal pelvis. Micropuncture was used to place anew wire in tandem with the catheter into the renal pelvis. The indwelling catheter was removed andexchanged for a new 10.2 Swedish catheter. [facility]. The catheter was connected to a gravity [...] (HCC) documented in this encounter Care Teams Net Programmer Analyst Relationship Specialty Start Date End Date Elsewhere, Pcp PCP - General Internal Medicine 08/13/23 documented as of this encounter
--- OUTSIDE RECORDS SUMMARY | 2024-01-20 08:58 | XMS_ITS | Encounter Summary ---
Author Organization [facility] Address [address] [place] [address] Care Team Providers Care Templer Head Name Role Phone Elsewhere, Pcp Primary Care Provider Unavailabl e Encounter Details Date Type Department Care Team (Latest Contact Info) Description 01/11/2024 10:18 AM CDT - 01/11/2024 11:59 PM CDT Hospital Encounter Department of Laboratory Medicine in [place], [place] [address] [place] [phone] Burke Strauss M.D. [facility] [place] [address] Retention Urinary Chronic Discharge Disposition: Home or [...] have a [facility] place to live 11/15/2023 Sex and [...] CDT Burke Strauss M.D. LAB BLOOD ADD-ON [facility] [address] [place] [address], [facility] NPRG [facility] [address] [place] [address] documented in this encounter Visit Diagnoses Diagnosis Retention Urinary Chronic documented in this encounter Care Teams Templer Head Relationship Specialty Start Date End Date Elsewhere, Pcp PCP - General Internal Medicine 08/13/23 documented as of this encounter
--- OUTSIDE RECORDS SUMMARY | 2024-01-20 08:58 | XMS_ITS | Encounter Summary ---
Author Organization [facility] Address [address] [place] [address] Care Team Providers Care Style Advisor Name Role Phone Elsewhere, Pcp Primary Care Provider Unavailabl e Reason for Referral * Outpatient (Routine) - Closed Specialty Diagnoses / Procedures Referred By Leyla rosenthal Referred To Contact Urology Diagnoses Retention Urinary Chronic Burke Strauss M.D. [address] [place] [address] [facility] Referral ID Status Reason Start Date Expiration Date Visits Re quested Visits Authorized [id number] Closed 12/08/2023 06/08/2025 1 1 Reason for Visit * Reason Comments Follow-up Irrigation of cathet er * Outpatient (Routine) - Closed Specialty Diagnoses / Procedures Referred By Leyla rosenthal Referred To Contact Urology Burke Strauss M.D. [address] [place] [phone] [facility] Referral ID Status Reason Start Date Expiration Date Visits Re quested Visits Authorized [id number] Closed 12/07/2023 06/07/2025 1 1 Encounter Details Date Type Department Care Team (Latest Contact Info) Description 12/08/2023 9:30 AM CDT Office Visit Department of Urology in [place], [place] [address] [place] [phone] Burke Strauss M.D. [address] [place] [phone] Retention Urinary Chronic (Primary Dx); Anemia; Anemia In Neoplastic Disease; Paperboard Box Maker (Current) Anticoagulant Treatment Discharge Disposition: Home or Self Care Social History Tobacco Use Types Packs/Day Years Used Date Smoking Tobacco: Never Smokeless Tobacco: Never [facility] Utilities Answer Date Recorded In the past 12 months has [facility] [employer], gas, oil, or water [employer] threatened to shut off services in your [...] 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 Paperboard Box Maker (Current) Anticoagulant Treatment Orders Placed This Encounter [...] Chronic- Primary Anemia Anemia In Neoplastic Disease Paperboard Box Maker (Current) Anticoagulant Treatment documented in this encounter Care Teams Style Advisor Relationship Specialty Start Date End Date Elsewhere, Pcp PCP - General Internal Medicine 08/13/23 documented as of this encounter
--- OUTSIDE RECORDS SUMMARY | 2024-01-20 08:58 | XMS_ITS | Encounter Summary ---
Author Organization [facility] Address [address] [place] [address] Care Team Providers Care Remodeler Name Role Phone Elsewhere, Pcp Primary Care [...] th e electric, gas, oil, or water [employer] threatened to shut off services in [...] on filedocumented in this encounter Care Teams Remodeler Relationship Specialty Start Date End Date Elsewhere, Pcp PCP - General Internal Medicine 08/13/23 documented as of this encounter
--- OUTSIDE RECORDS SUMMARY | 2024-01-20 08:58 | XMS_ITS | Encounter Summary ---
Author Organization [facility] Address [address] [place] [address] Care Team Providers Care Tower Cleaner Name Role Phone Elsewhere, Pcp Primary Care Provider Unavailabl e Reason for Referral * Outpatient (Routine) - Closed Specialty Diagnoses / Procedures Referred By Leyla rosenthal Referred To Contact Diagnoses Retention Urinary Chronic Procedures URO Urethral cath fill / remove / voiding trial (fill / pull) Burke Strauss M.D. [address] [place] [phone] [facility] Referral ID Status Reason Start Date Expiration Date Visits Re quested Visits Authorized [id number] Closed 01/11/2024 01/10/2025 1 1 Reason for Visit * Reason Comments Follow-up Retention * Outpatient (Routine) - Closed Specialty Diagnoses / Procedures Referred By Leyla rosenthal Referred To Contact Urology Burke Strauss M.D. [address] [place] [phone] [facility] Region Referral ID Status Reason Start Date Expiration Date Visits Re quested Visits Authorized [id number] Closed 12/14/2023 06/14/2025 1 1 Encounter Details Date Type Department Care Team (Late st Contact Info) Description 01/11/2024 10:00 AM CDT Office Visit Department of Urology in [place], [place] [address] [place] [phone] Burke Strauss M.D. [address] [place] [phone] Retention Urinary Chronic (Primary Dx); Radiation Therapy Cystitis With Hematuria; Primary Malignant Neoplasm Of Prostate (HCC); Nephrostomy Status Post (HCC) Discharge Disposition: Home or Self Care Social History Tobacco Use Types Packs/Day Years Used Date Smoking Tobacco: Never Smokeless Tobacco: Never [facility] Utilities Answer Date Recorded In the past 12 months has [facility] [employer], gas, oil, or water [employer] threatened to shut off services in your [...] a [facility] place to live 11/15/2023 Sex [...] August 2023. This ultimately required cystotomy at [facility] in September 2023. He also has [...] Of Prostate (HCC) 4. Nephrostomy Status Post ([facility]) Orders Placed This Encounter Procedures Basic Metabolic [...] CDT Burke Strauss M.D. LAB BLOOD ADD-ON [facility] [address] [place] [address], [facility] NPRG 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
--- OUTSIDE RECORDS SUMMARY | 2024-01-20 08:58 | XMS_ITS | Encounter Summary ---
Author Organization [facility] Address [address] [place] [address] Care Team Providers Care Pipe Cleaner Name Role Phone Elsewhere, Pcp Primary Care Provider Unavailabl e Reason for Visit * Reason Comments Nurse Visit Patient here for mon thly scheduled catheter exchange * Outpatient (Routine) - Authorized Specialty Diagnoses / Procedures Referred By Leyla t Referred To Contact Diagnoses Retention Urinary Chronic Procedures URO Urethral cath change (UCC) Burke Strauss M.D. [address] [place] [phone] [facility] Region Referral ID Status Reason Start Date Expiration Date V isits Requested Visits Authorized [id number] Authorized 11/09/2023 11/08/2024 15 15 Encounter Details Date Type Department Care Team (Latest Contact Info) Description 01/11/2024 9:00 AM CDT Procedure visit Department of Urology in [place], [place] [address] [place] [phone] Burke Strauss M.D. [address] [place] [phone] Keli Denton R.N. [address] [place] [phone] Retention Urinary Chronic Discharge Disposition: Home or [...] a [facility] place to live 11/15/2023 Sex [...] proceed with catheter change utilizing a [address] [place] catheter per Dr. Strauss. Patient and son in agreement with plan. The balloon was deflated of 30 ml and the catheter was slowly removed. After prepping the patient with betadine a new 20 swedish straight tip urethral catheter (Ref # [id number]) was inserted using sterile technique. Urine returned [...] Chronic documented in this encounter Care Teams Pipe Cleaner Relationship Specialty Start Date End Date Elsewhere, Pcp PCP - General Internal Medicine 08/13/23 documented as of this encounter
--- OUTSIDE RECORDS SUMMARY | 2024-01-20 08:58 | XMS_ITS | Encounter Summary ---
Author Organization [facility] Address [address] [place] [address] Care Team Providers Care Ed Teacher Name Role Phone Elsewhere, Pcp Primary Care Provider Unavailabl e Encounter Details Date Type Department Care Team (Late st Contact Info) Description 01/09/2024 Documentation Department of Urology in [place], [place] [address] [place] [phone] Corin Ring M.D. [address] [place] [phone] Social History Tobacco Use Types Packs/Day Years Used Date Smoking Tobacco: Never Smokeless Tobacco: Never [facility] Utilities Answer Date Recorded In the past 12 months has [facility] [employer], gas, oil, or water [employer] threatened to shut off services in [...] [facility] live 11/15/2023 Sex and Gender Information Value Date Recorded Sex Assigned at Not on file Gender Identity Not on file Sexual Orientation Not on file documented as of this encounter Plan of Treatment Not on file documented as of this encounter Visit Diagnoses Diagnosis Radiation Therapy Cystitis With Hematuria- Primary documented in this encounter Care Teams Ed Teacher Relationship Specialty Start Date End Date Elsewhere, Pcp PCP - General Internal Medicine 08/13/23 documented as of this encounter
--- OUTSIDE RECORDS SUMMARY | 2024-01-20 08:58 | XMS_ITS | Encounter Summary ---
Author Organization [facility] Address [address] [place] [address] Care Team Providers Care Bag Sorter Name Role Phone Elsewhere, Pcp Primary Care Provider Unavailabl e Reason for Referral * Outpatient (Routine) - Authorized Specialty Diagnoses / Procedures Referred By Contac t Referred To Contact Diagnoses Hematuria Gabe Neal M.D. [address] [place] [address] Referral ID Status Reason Start Date Expiration Date V isits Requested Visits Authorized [id number] Authorized 11/17/2023 05/18/2025 1 1 Encounter Details Date Type Department Care Team (Late st Contact Info) Description 11/14/2023 11:38 PM CDT - 11/17/2023 3:55 PM CDT Hospital Encounter [facility], Fifth Floor [address] [place] [address] Eliceo Guerrier M.D., Ph.D. [address] [place] [address] Sylvie Álvarez M.B.B.S., M.D. [address] [place] [address] Rashawn Vences M.D. [address] [place] [address] Gabe Buckley M.D. [address] [place] [address] Smith Peter (Primary Dx) Discharge Disposition: Home-Health Care Svc Social History Tobacco Use Types Packs/Day Years Used Date Smoking Tobacco: Never Smokeless Tobacco: Never [facility] Utilities Answer Date Recorded In the past 12 months has [facility] [employer], gas, oil, or water [employer] threatened to shut off services in [...] SUMMARY BRIEF OVERVIEW Discharge Hospital: Hospital: [facility] Discharge Provider: Gabe Buckley M.D. Primary Care Providers: Dr. 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 Cesar Mccollum to discuss restarting OUTPATIENT FOLLOW UP Scheduled Appointments 12/07/2023 10:[address] [facility]ULT[facility] SPECIALTY NURSE 01 NPNC; URO NURSE [...] filter and chronic pressure wounds presented to [place] 11/14/23 gross hematuria including around his indwelling [...] discussed with Dr. Gabe Rivas DO. PGY-1 [facility] Residency [place] Associated attestation - Gabe Buckley M.D. - [...] 83 y.o. male who was admitted to [facility] 11/14/2023 due to Hematuria Gross [R31.0]. Patient was accompanied by son, Kar. This publications writer finalized arrangements for resumption of home health care services. 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 INTERVENTION This publications writer sent a service reconnection, including resumption of care order, to resumption of home health care services to [facility] as the fax number matches the fax [...] Muscle Mass: Normal Fluid Accumulation: Absent Reduced Test Borer Strength: Not applicable This is in the [...] 83 y.o. male who was admitted to [facility] 11/14/2023 due to Hematuria Gross [R31.0]. Patient was accompanied by daughter (Mindy) and son (Kar). This publications writer continues to assist in home health care reconnection. 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 INTERVENTION Patient's daughter, Mindy, provided this publications writer with contact information for Doreen Javier, nurse attending ambulatory care for [facility]; [phone]. This publications writer left Doreen a voicemail, requesting a [...] bag -monitor CMP for kidney function -continue EMPLOYEE COMMUNICATIONS MANAGER tamsulosin -continue EMPLOYEE COMMUNICATIONS MANAGER enzalutamide -urine culture, per urology # Coronary artery disease without angina pectoris, status post 6 stents # History of DVTs, status post IVC filter # Hyperlipidemia Is on both Plavix and Xarelto at home. -start Xarelto 11/16/2023 so response can be monitored while hospitalized -continue EMPLOYEE COMMUNICATIONS MANAGER amlodipine -continue EMPLOYEE COMMUNICATIONS MANAGER rosuvastatin -continue EMPLOYEE COMMUNICATIONS MANAGER metoprolol # Chronic Pressure Wound, Coccyx -continue wound care -offloading as much as possible Non-severe (moderate) Malnutrition (11/15/23) The patient meets the ASPEN Criteria of malnutrition based on: Energy Intake: Less than 75% of estimated energy requirement for greater than or equal to 1 month Interpretation of Weight Loss: 7.5% 3 months Body Fat: Normal Muscle Mass: Normal Fluid Accumulation: Absent Reduced Test Borer Strength: Not applicable This is in the [...] Gabe Buckley M.D. Candelaria Rivas DO. PGY-1 [facility] Medicine Residency [place] Associated attestation - Gabe Buckley M.D. - 11/16/2023 6:25 PM CDT I saw and evaluated the patient, participating in the henderson portions of the service. I reviewed the resident/fellow???s note. I agree with the resident/fellow???s findings and plan. 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 - [...] recommendations -monitor CMP for kidney function -continue EMPLOYEE COMMUNICATIONS MANAGER tamsulosin -continue EMPLOYEE COMMUNICATIONS MANAGER enzalutamide -urine culture, per urology # Coronary artery disease without angina pectoris, status post 6 stents # History of DVTs, status post IVC filter # Hyperlipidemia Is on both Plavix and Xarelto at home. Urology recommendations on restarting blood thinners. -may consider restarting one or both on 11/16/2023 so response can be monitored while hospitalized -continue EMPLOYEE COMMUNICATIONS MANAGER amlodipine -continue EMPLOYEE COMMUNICATIONS MANAGER rosuvastatin -continue EMPLOYEE COMMUNICATIONS MANAGER metoprolol # Chronic Pressure Wound, Coccyx -continue wound care -offloading as much as possible Non-severe (moderate) Malnutrition (11/15/23) The patient meets the ASPEN Criteria of malnutrition based on: Energy Intake: Less than 75% of estimated energy requirement for greater than or equal to 1 month Interpretation of Weight Loss: 7.5% 3 months Body Fat: Normal Muscle Mass: Normal Fluid Accumulation: Absent Reduced Test Borer Strength: Not applicable This is in the [...] Rashawn Vences M.D. Candelaria Rivas DO. PGY-1 [facility] Residency [place] Associated attestation - Rashawn Vences M.D. - [...] other issues. He showed up in the [place] [facility] room yesterday with complaints of a [...] and visits for hematuria. Patient presented at [place] yesterday because of bleeding around his [place] [...] vomiting, no abdominal pain. Patient presented at [place] where urology was contacted, manual bladder irrigation [...] anemia, hemoglobin now 8.2. Patient presented to [place] ED because of bleeding around his [place] catheter. At [place], patient had manual bladder irrigation with normal [...] CDTAssociated Order(s): Dietitian consult (hospital); Dietitian Consult ([facility]) Dietitian Consult (Hospital) Referring Provider: Malcolm Gibson Instant O Dietitian consult ([facility]) Referring Provider: Malcolm Gibson Instant O [...] had lost 28lbs during his stay in [place] as he was NPO for12 days then [...] Muscle Mass: Normal Fluid Accumulation: Absent Reduced Test Borer Strength: Not applicable This is in the [...] 84.1 kg BMI (Calculated): 26.6 kg/m?? 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 Has another son (Kar) and a daughter (Mindy). Support System: spouse and children Spirituality/Mandaeism/Cultural Factors: None History: No Highest Level of [...] Cooperative, Oriented Communication: Talks, Understands speaking, Understands Chinese Shopping: Appropriate to age/development Medication Management: Independent Housekeeping: Appropriate to age/development Meal Prep: Appropriate to age/development Assistive Devices: Eyeglasses, Hearing aid(s) [facility] Provided: senior living once weekly for wound care, PT, social work, Makenzie attending ambulatory care Transportation: Support from family Baseline Services/Resources Primary care clinic and provider: ELSEWHERE, PCP Anticipated Needs Functional Status: Tasks appropriate to patient's age/development, Transportation use (drive car, use taxi/bus) Assistive Devices: Eyeglasses, Hearing aid(s) Services/Resources: Home health Agency Name: [facility] Provided: senior living once weekly for wound care, PT, social work, DarwinRN attending ambulatory care Does the patient need discharge transport arranged?: No Anticipated Discharge Destination: Home-Health Care Sv OBJECTIVE Substance Abuse no symptoms Mental Health Mental Health History: Patient reports no mental health history Patient reports no current concerns Mental Health Treatment History No history of Psychiatric Treatment noted Suicide Risk and Safety Risk Assessment: C-SSRS Short Version: [place] Suicide Severity Rating Scale (Do this one [...] a wound clinic the other day. This publications writer spoke to intake with [facility] however the only information provided is that patient is served by the [facility] location and receives correction, physical therapy, and social work and the fax number for discharge paperwork was provided. Interventions Psychosocial assessment completed. Provided supportive services. Provided education regarding the role of social work. Plan It is anticipated patient will return home with family and resume services through [facility]. Martha Gardiner 11/15/2023 * Jerri Toledo R.N., [place], [facility] - 11/15/2023 10:54 AM [...] and visits for hematuria. Patient presented at [place] yesterday because of bleeding around his [place] [...] vomiting, no abdominal pain. Patient presented at [place] where urology was contacted, manual bladder irrigation with normal saline was performed, and patient was started on CBI. Patient transferred to [place] for further management. WOUND ASSESSMENT: Wound Type: Pressure Injury MC IP Pressure Injury Staging: Stage 3 Wound Location: Coccyx Wound Orientation: Mid Wound Tunnel/Induration: Length 1 cm, Width 0.5 cm, and Depth 0.3 cm. Wound Bed Tissue: Red and Granulation tissue 100% Leslee-Wound Skin: Blanchable erythema, Maceration, and Pepin PLAN: COCCYX: DAILY 1. Cleanse wound with [...] limit sliding down in chair. Please contact [facility] RNs if you have any question or concerns regarding wound care. Jerri Toledo R.N., LYNNE at [phone] Starla Méndez R.N., LE at [phone] * Zachery Tanner, ARUN, C.N.P., M.S. - [...] follows with Medical Oncology Dr. Tan in [place], [place]. Right hydronephrosis and right atrophic kidney [...] 08/30. Currently undergoing outpatient hyperbaric O2 in [facility]. Mr. Vega currently admitted to [facility] in the setting of recurrent gross hematuria. He wasseen in evaluation at [facility] Emergency Department in the setting of concern [...] in comparison to historical imaging. Ultimately [address] catheter was placed and patient was hand irrigated and initiated on CBI.Patient was transferred to [facility] for ongoing management. Urinalysis 11/15/2023 with [...] undergoing outpatient HBO (hyperbaric oxygenation therapy) in [facility]. Recommend to continue HBO in the [...] hematuria. Outpatient appointment scheduled on 12/07/2023 in [place] with Urology. Could consider discussion about catheter removal/formal voiding trial in the outpatient setting as to limit catheter irritation/potential infection risk contributing to hematuria. Significant pyuria on urinalysis in the setting of his gross hematuria would recommend urine culture. 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 Tan in [place], [place]. Per subjective report today undetectable PSA. [...] discussed with Dr. Valdez. Zachery Tanner APRN PRECISION PRINTING WORKER Associated attestation - Manav Valdez M.D. - [...] Summary: Pt is a direct admit from [place] ED. He has chronic indwelling catheter, with prostate cancer history. He noticed urine was bloody red. While being seen in [place], 3 waycatheter was inserted and CBI started. [...] filter and chronic pressure wounds presented to [place] 11/14/23 gross hematuria including around his indwelling [...] Type Priority Associated Diagnoses Orde r Schedule [facility] referral Outpatient Referral Routine Hematuria Gross [...] CDT Candelaria Rivas D.O. LAB BLOOD ADD-ON [facility] [address] [place] [address], [facility] [place] [address] [place] [address] * (ABNORMAL) Basic Metabolic Panel (11/17/2023 7:24 [...] CDT Candelaria Rivas D.O. LAB BLOOD ADD-ON [facility] [address] [place] [address], [place] [address] * Glucose, POCT (11/17/2023 6:45 AM CDT) Glucose, POCT, B 107 70 - 140 mg/dL 11/17/2023 6:45 AM CDT MKTO Blood 11/17/2023 6:45 AM CDT 11/17/2023 7:03 AM CDT Generic Rals LAB POCT ORDERABLES- MANUAL Performing Organization Address [facility] Co de Phone Number [facility] [address] [place] [address] * (ABNORMAL) Hemoglobin (11/16/2023 4:43 PM CDT) Hemoglobin 9.2(L) 13.2 - 16.6 g/dL 11/16/2023 5:13 PM CDT MKTO Blood (Blood, Venous) 11/16/2023 4:43 PM CDT 11/16/2023 5:10 PM CDT Madelyn Cesar D.O. LAB BLOOD ADD-ON Performing Organization Address [facility] Co de Phone Number [facility] [address] [place] [address], [place] [address] * (ABNORMAL) Comprehensive Metabolic Panel (11/16/2023 6:25 [...] Rashawn Vences M.D. LAB BLOOD ADD-ON [facility] [place] [address], [facility] in [place] [id number] [place] [address] * (ABNORMAL) CBC with Differential, Blood (11/16/2023 [...] M.D. LAB BLOOD ADD-ON Performing Organization Address City/State/[facility] Co de Phone Number [facility] [address] [place] [address], [facility] [place] [address] [place] [phone] * Transfuse Red Blood Cells : (11/15/2023 [...] Sylvie Wright M.D. LAB BLO OD ADD-ON [facility] [address] [place] [address], [facility] MKTO [facility] [place] [address] [place] [address] * (ABNORMAL) CBC with Differential, Blood (11/15/2023 [...] LAB BLO OD ADD-ON Performing Organization Address [facility] Co de Phone Number [facility] [address] [place] [address], [facility] MKTO [facility] [place] [address] [place] [address] * ECG 12 Lead (11/15/2023 6:47 AM CDT) Ventricular Rate ECG/Min 65 BPM MUSE SC Interval 144 ms MUSE QRSD Interval 76 ms MUSE QT Interval 430 ms MUSE QTC Interval 447 ms MUSE P [place] -7 degrees MUSE R [place] 9 degrees MUSE T Wave [place] 19 degrees MUSE 11/15/2023 6:47 AM CDT [...] M.D. ECG ORD ERABLES Performing Organization Address City/[facility] Co de Phone Number MUSE [...] Sylvie Wright M.D. LAB URI NE ORDERABLES [facility] [address] [place] [address], [facility] MKTO [place] [place] [address] * (ABNORMAL) Urinalysis with Microscopic if Indicated [...] to determine due to color interference Specific [place] SEE COMMENT 1.001 - 1.035 11/15/2023 8:03 AM CDT MKTO Comment:Unable to determine due to color interference Urobilinogen SEE COMMENT 0.2 - 1.0 mg/dL 11/15/2023 8:03 AM CDT MKTO Comment:Unable to determine due to color interference Urine (Urine, Midstream) 11/15/2023 6:25 AM CDT 11/15/2023 6:34 AM CDT Sylvie Wright M.D. LAB URI NE ORDERABLES [facility] [address] [place] [address], [place] [address] * Bacterial Culture, Aerobic + Susceptibility, Urine (11/15/2023 6:24 AM CDT) Urine Culture Urogenital microbiota, susceptibilities not performed per laboratory criteria. 11/16/2023 11:36 AM CDT [facility] Urine (Urine, Indwelling Catheter) 11/15/2023 6:24 AM CDT 11/15/2023 9:29 AM CDT Comment:Specimen Source Site : Urine Zachery Tanner APRN C.N.P., M.S. 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
--- OUTSIDE RECORDS SUMMARY | 2024-01-20 08:58 | XMS_ITS | Encounter Summary ---
Author Organization [facility] Address [address] [place] [address] Care Team Providers Care District Wire Chief Name Role Phone Elsewhere, Pcp Primary Care Provider Unavailabl e Reason for Visit * Reason Comments Urinary Catheter Change Pt reports leaki ng from part of three way catheter, believes he may have nicked it with a scissors. Encounter Details Date Type Department Care Team (Late st Contact Info) Description 11/30/2023 6:44 PM CDT - 11/30/2023 8:06 PM CDT Emergency [facility] [address] [place] [phone] Carmen Cherry M.D., M.P.H. [address] [place] [phone] Leakage Of Other Urinary Catheter Initial (HCC) (Primary Dx) Discharge Disposition: Home or Self Care Social History Tobacco Use Types Packs/Day Years Used Date Smoking Tobacco: Never Smokeless Tobacco: Never [facility] Utilities Answer Date Recorded [...] [facility] place to live 11/15/2023 Sex [...] Everywhere. * Indwelling Urinary Catheter Care Adult [id number] (Lithuanian) documented in this encounter Medications at Time [...] 11/30/231957 Leakage Of Other Urinary Catheter Initial ([facility]) Carmen Cherry M.D., M.P.H. 11/30/232000 documented in [...] (Due) documented in this encounter Care Teams District Wire Chief Relationship Specialty Start Date End Date Elsewhere, Pcp PCP - General Internal Medicine 08/13/23 documented as of this encounter
--- OUTSIDE RECORDS SUMMARY | 2024-01-20 08:58 | XMS_ITS | Encounter Summary ---
Author Organization [facility] Address [address] [place] [address] Care Team Providers Care Leather Belt Shaper Name Role Phone Elsewhere, Pcp Primary Care [...] CDT - 01/09/2024 6:29 PM CDT Emergency [facility] [address] [place] [phone] Sergio Raza M.D. [address] [place] [phone] Nephrostomy Status Post (HCC) (Primary Dx) Discharge [...] have a channing home place to live 11/15/2023 Sex and [...] out any further, he should go to [facility] at which point in the nephrostomy [...] CDT Sergio Raza M.D. LAB BLOOD ADD-ON [facility] [address] [place] [address], [facility] NPRG [facility] [address] [place] [address] * Hepatic Function Panel (01/09/2024 4:29 PM [...] CDT Sergio Raza M.D. LAB BLOOD ADD-ON [facility] [address] [facility] [place] [address], [place] NPRG [facility] [address] [place] [address] * (ABNORMAL) Basic Metabolic Panel (01/09/2024 4:29 [...] CDT Sergio Raza M.D. LAB BLOOD ADD-ON [facility] [address] [facility] [place] [address], [place] NPRG [facility] [address] [place] [address] documented in this encounter Visit Diagnoses Diagnosis [...] 1613 documented in this encounter Care Teams Leather Belt Shaper Relationship Specialty Start Date End Date Elsewhere, Pcp PCP - General Internal Medicine 08/13/23 documented as of this encounter
--- OUTSIDE RECORDS SUMMARY | 2024-01-20 08:58 | XMS_ITS | Encounter Summary ---
Author Organization [facility] Address [address] [place] [address] Care Team Providers Care Schedule Manager Name Role Phone Elsewhere, Pcp Primary Care Provider Unavailabl e Reason for Referral * Outpatient (Routine) - Authorized Specialty Diagnoses / Procedures Referred By Leyla rosenthal Referred To Contact Radiology Diagnoses Nephrostomy Status Post (HCC) Primary Malignant Neoplasm Of Prostate (HCC) Procedures IR Nephrostomy Tube Exchange Left Naseem Brock M.D. [address] [place] [phone] [facility] Region Referral ID Status Reason Start Date Expiration Date V isits Requested Visits Authorized [id number] Authorized 01/12/2024 01/11/2025 1 1 * Outpatient (Routine) - Closed Specialty Diagnoses / Procedures Referred By Leyla rosenthal Referred To Contact Radiology Diagnoses Nephrostomy Status Post (HCC) Procedures IR Nephrostomy Tube Exchange Left Ingrid Desai M.D. [address] [place] [phone] [facility] Region Referral ID Status Reason Start Date Expiration Date Visits Re quested Visits Authorized [id number] Closed 01/11/2024 01/10/2025 1 1 Reason for Visit * Outpatient (Routine) - Closed Specialty Diagnoses / Procedures Referred By Leyla t Referred To Contact Radiology Diagnoses Nephrostomy Status Post (HCC) Procedures IR Nephrostomy Tube Exchange Left Ingrid Desai M.D. [address] [place] [phone] [facility] Region Referral ID Status Reason Start Date Expiration Date Visits Re quested Visits Authorized [id number] Closed 01/11/2024 01/10/2025 1 1 Encounter Details Date Type Department Care Team (Latest Contact Info) Description 01/12/2024 8:30 AM CDT - 01/12/2024 9:52 AM CDT Hospital Encounter Department of Radiology in [address] [phone] Ingrid Desai M.D. [address] [place] [phone] Naseem Brock M.D. [address] [place] [phone] Nephrostomy Status Post (HCC) (Primary Dx); Primary Malignant Neoplasm Of Prostate (HCC) Discharge Disposition: Home or Self Care Social History Tobacco Use Types Packs/Day Years Used Date Smoking Tobacco: Never Smokeless Tobacco: Never [facility] Utilities Answer Date Recorded In the past 12 months has [facility] [employer], gas, oil, or water [employer] threatened to shut off services in your [...] exchange with placement of a new 10.2 Maltese 25 cm pigtail nephrostomy tube into the renal pelvis. Please see Radiology Report for full details. HVAC CONTROLS TECHNICIAN Mars Brock M.D. SPECIMENS REMOVED None. ESTIMATED [...] medications. Patient education provided by a care call center team leader. Patient was ready to learn with no [...] medications. Patient education provided by a care call center team leader. Patient was ready to learn withno apparent [...] Maltese catheter. A permanent image was saved to[employer]. The catheter was connected to a gravity [...] M.D.) documented in this encounter Care Teams Schedule Manager Relationship Specialty Start Date End Date Elsewhere, Pcp PCP - General Internal Medicine 08/13/23 documented as of this encounter
--- OUTSIDE RECORDS SUMMARY | 2024-01-20 08:58 | XMS_ITS | Encounter Summary ---
Author Organization [facility] Address [address] [place] [address] Care Team Providers Care Production Lapping Machine Operator Name Role Phone Elsewhere, Pcp Primary Care Provider Unavailabl e Encounter Details Date Type Department Care Team (Latest Contact Info) Description 12/07/2023 12:19 PM CDT - 12/07/2023 11:59 PM CDT Hospital Encounter Department of Laboratory Medicine in [place], [place] [address] [place] [phone] Burke Strauss M.D. [facility] [place] [phone] Anemia; Hematuria Gross; Retention Urinary Chronic Discharge [...] CDT Burke Strauss M.D. LAB BLOOD ADD-ON [facility] [address] [place] [address], [facility] NPRG [place] [address] [place] [address] * (ABNORMAL) Hemoglobin (12/07/2023 12:25 PM CDT) Hemoglobin 9.2(L) 13.2 - 16.6 g/dL 12/07/2023 12:33 PM CDT NPRG Blood (Blood, Venous) 12/07/2023 12:25 PM CDT 12/07/2023 12:27 PM CDT Burke Strauss M.D. LAB BLOOD ADD-ON Performing Organization Address City/[facility]/ZIP Co de Phone Number [facility] [address] [place] [address], [facility] NPRG [place] [address] [place] [address] documented in this encounter Visit Diagnoses Diagnosis Anemia Hematuria Gross Retention Urinary Chronic documented in this encounter Care Teams Production Lapping Machine Operator Relationship Specialty Start Date End Date Elsewhere, Pcp PCP - General Internal Medicine 08/13/23 documented as of this encounter
--- OUTSIDE RECORDS SUMMARY | 2024-01-20 08:58 | XMS_ITS | Encounter Summary ---
Author Organization [facility] Address [address] [place] [address] Care Team Providers Care Dough Puncher Name Role Phone Elsewhere, Pcp Primary Care Provider Unavailabl e Reason for Referral * Outpatient (Routine) - Closed Specialty Diagnoses / Procedures Referred By Leyla rosenthal Referred To Contact Urology Wili Sosa M.D. [address] [place] [phone] [facility] Referral ID Status Reason Start Date Expiration Date Visits Re quested Visits Authorized [id number] Closed 12/14/2023 06/14/2025 1 1 Reason for Visit * Reason Comments Nurse Visit Catheter Irrigation * Outpatient (Routine) - Closed Specialty Diagnoses / Procedures Referred By Leyla rosenthal Referred To Contact Urology Diagnoses Retention Urinary Chronic Wili Sosa M.D. [address] [place] [phone] [facility] Referral ID Status Reason Start Date Expiration Date Visits Re quested Visits Authorized [id number] Closed 12/08/2023 06/08/2025 1 1 Encounter Details Date Type Department Care Team (Late st Contact Info) Description 12/13/2023 9:15 AM CDT Nurse Only Department of Urology in [place], [place] [address] [place] [phone] Wili Sosa M.D. [address] [place] [phone] Latonia Dumont L.P.N. Nurse Visit (Catheter Irrigation ) Discharge Disposition: Home or Self Care Social History Tobacco Use Types Packs/Day Years Used Date Smoking Tobacco: Never Smokeless Tobacco: Never [facility] [employer] Answer Date Recorded In the past 12 months has e [employer], gas, oil, or water [email or web address] threatened to shut off services in your [...] have a [facility] place to live 11/15/2023 Sex and [...] Chronic documented in this encounter Care Teams Dough Puncher Relationship Specialty Start Date End Date Elsewhere, Pcp PCP - General Internal Medicine 08/13/23 documented as of this encounter
--- OUTSIDE RECORDS SUMMARY | 2024-01-20 08:58 | XMS_ITS | Encounter Summary ---
Author Organization [facility] Address [address] [place] [address] Care Team Providers Care Retirement Plan Specialist Name Role Phone Elsewhere, Pcp Primary Care Provider Unavailabl e Reason for Referral * Outpatient (Routine) - Closed Specialty Diagnoses / Procedures Referred By Leyla rosenthal Referred To Contact Burke Lucero M.D. [address] [place] [phone] [facility] Referral ID Status Reason Start Date Expiration Date Visits Re quested Visits Authorized [id number] Closed 12/07/2023 06/07/2025 1 1 Reason for Visit * Reason Comments Follow-up Discuss jon cathet er * Outpatient (Routine) - Closed Specialty Diagnoses / Procedures Referred By Leyla rosenthal Referred To Contact Burke Lucero M.D. [address] [place] [phone] [facility] Referral ID Status Reason Start Date Expiration Date Visits Re quested Visits Authorized [id number] Closed 11/09/2023 05/10/2025 1 1 Encounter Details Date Type Department Care Team (Late st Contact Info) Description 12/07/2023 10:30 AM CDT Office Visit Department of Urology in [place], [place] [address] [place] [phone] Burke Strauss M.D. [address] [place] [phone] Hematuria Gross (Primary Dx); Radiation Therapy Cystitis With Hematuria; Anemia; Retention Urinary Chronic Discharge Disposition: Home or Self Care Social History Tobacco Use Types Packs/Day Years Used Date Smoking Tobacco: Never Smokeless Tobacco: Never [facility] Utilities Answer Date Recorded In the past 12 months has [facility] [place] [employer]), gas, oil, or water [facility] threatened to shut off services in [...] living situation today? I have a [facility] place to live 11/15/2023 Sex and [...] sterile technique anew 22 Fr. (Ref # [id number]) Silicone 3- way catheter placed with assistance [...] was inadvertently cut. He currently has a22 Cook Islander silicone three-way catheter. He will return tomorrow [...] CDT Burke Strauss M.D. LAB BLOOD ADD-ON [facility] [address] [place] [address], [place] NPRG [facility] [address] [place] [address] * (ABNORMAL) Hemoglobin (12/07/2023 12:25 PM CDT) Hemoglobin 9.2(L) 13.2 - 16.6 g/dL 12/07/2023 12:33 PM CDT NPRG Blood (Blood, Venous) 12/07/2023 12:25 PM CDT 12/07/2023 12:27 PM CDT Burke Strauss M.D. LAB BLOOD ADD-ON [facility] [address] [place] [address], [facility] NPRG [facility] [address] [place] [address] documented in this encounter Visit Diagnoses Diagnosis Hematuria Gross- Primary Radiation Therapy Cystitis With Hematuria Anemia Retention Urinary Chronic documented in this encounter Care Teams Retirement Plan Specialist Relationship Specialty Start Date End Date Elsewhere, Pcp PCP - General Internal Medicine 08/13/23 documented as of this encounter
--- OUTSIDE RECORDS SUMMARY | 2024-01-20 08:59 | XMS_ITS | Encounter Summary ---
Author Organization [facility] Address [address] [place] [address] Care Team Providers Care Lead Assistant Manager Name Role Phone Elsewhere, Pcp Primary Care Provider Unavailabl e Reason for Visit * Reason Comments Urinary Retention * Outpatient (Routine) - Closed Specialty Diagnoses / Procedures Referred By Contaraceli t Referred To Contact Diagnoses Hematuria Procedures URO Urethral cath change (UCC) Paula Hernandez M.D. [address] [place] [phone] [facility] Referral ID Status Reason Start Date Expiration Date Visits Re quested Visits Authorized [id number] Closed 09/15/2023 09/14/2024 1 1 Encounter Details Date Type Department Care Team (Late st Contact Info) Description 10/14/2023 1:00 PM CDT Procedure visit Department of Urology in [place], [place] [address] [place] [phone] Paula Hernandez M.D. [address] [place] [phone] Khadra Miller R.N. [address] [place] [phone] Hematuria Social History Tobacco Use Types Packs/Day Years Used Date Smoking Tobacco: Never Smokeless Tobacco: Never [facility] Utilities Answer Date Recorded In the [...] [facility] 09/09/2023 Sex [...] Hematuria documented in this encounter Care Teams Lead Assistant Manager Relationship Specialty Start Date End Date Elsewhere, Pcp PCP - General Internal Medicine 08/13/23 documented as of this encounter
--- OUTSIDE RECORDS SUMMARY | 2024-01-20 08:59 | XMS_ITS | Encounter Summary ---
Author Organization [facility] Address [address] [place] [address] Care Team Providers Care Associate Dean Name Role Phone Elsewhere, Pcp Primary Care Provider Unavailabl e Reason for Visit * Reason Comments Catheter Care Plan Encounter Details Date Type Department Care Team (Late st Contact Info) Description 10/14/2023 Documentation Department of Urology in [place], [place] [address] [place] [phone] Paula Hernandez M.D. [address] [place] [phone] Catheter Care Plan Social History Tobacco Use [...] have a [facility] place to live 09/09/2023 Sex and Gender Information Value Date Recorded Sex Assigned at Not on file Gender Identity Not on file Sexual Orientation Not on file documented as of this encounter Progress Notes * Ashleigh Ferreira RJonahN. - 10/14/2023 2:05 PM CDT Treatment Summary and Care Plan - Catheter Exchange General Information [facility]/ Patient Name: Kalen Vega Date: 1940 Health Care Provider(s) Medical Provider(s) Cesar Mccollum M.D. Institution: No address on file [place], [place] Urology Provider(s) Chief Urology residents Last seen by Paula Hernandez M.D. Institution: [facility] Treatment Summary Diagnosis Hydronephrosis; hematuria; metastatic prostate cancer; radiation cystitis Treatment Surgery []Yes [x] No Surgery Date(s) Surgical Procedure/Location/Findings Current Treatment Information/Follow-up Care Plan Frequency of Catheter Changes (i.e. every 4 weeks) every 4 weeks Catheter Information Type: Coude red rubber Size:20F Reference #: [id number] Catheter Prescription Expires NA Last seen by [...] on filedocumented in this encounter Care Teams Associate Dean Relationship Specialty Start Date End Date Elsewhere, Pcp PCP - General Internal Medicine 08/13/23 documented as of this encounter
--- OUTSIDE RECORDS SUMMARY | 2024-01-20 08:59 | XMS_ITS | Encounter Summary ---
Author Organization [facility] Address [address] [place] [address] Care Team Providers Care Lifestyle Director Name Role Phone Elsewhere, Pcp Primary [...] on filedocumented in this encounter Care Teams Lifestyle Director Relationship Specialty Start Date End Date Elsewhere, Pcp PCP - General Internal Medicine 08/13/23 documented as of this encounter
--- OUTSIDE RECORDS SUMMARY | 2024-01-20 08:59 | XMS_ITS | Encounter Summary ---
Author Organization [facility] Address [address] [place] [address] Care Team Providers Care Histology Supervisor Name Role Phone Elsewhere, Pcp Primary Care Provider Unavailabl e Reason for Visit * Reason Onset Date Comments Oncology records request 11/10/2023 Encounter Details Date Type Department Care Team (Latest Contact Info) Description 11/10/2023 Clinical Communication Department of Urology in [place], [place] [address] [place] [phone] Burke Strauss M.D. [address] [place] [phone] Oncology records request Social History Tobacco Use [...] [facility] 11/15/2023 Sex [...] Information was filled out and faxed to [facility], Dr. Mireya Tan clinic per Dr. Strauss. Will wait for these to come through and notify Dr. Strauss for his review. [facility] documented in this encounter Plan of Treatment Not on file documented as of this encounter Visit Diagnoses Not on filedocumented in this encounter Care Teams Histology Supervisor Relationship Specialty Start Date End Date Elsewhere, Pcp PCP - General Internal Medicine 08/13/23 documented as of this encounter
--- OUTSIDE RECORDS SUMMARY | 2024-01-20 08:59 | XMS_ITS | Encounter Summary ---
Author Organization [facility] Address [address] [place] [address] Care Team Providers Care Box Sealing Machine Catcher Name Role Phone Elsewhere, Pcp Primary Care [...] a [facility] place to live 08/13/2023 Sex [...] documented as of this encounter Care Teams Box Sealing Machine Catcher Relationship Specialty Start Date End Date Elsewhere, Pcp PCP - General Internal Medicine 08/13/23 documented as of this encounter
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
--- OUTSIDE RECORDS SUMMARY | 2024-01-20 08:59 | XMS_ITS | Clinical Summary ---
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 OUD=570.87 Bladder mass 02/29/2020 04/30/2020 Hematuria 02/29/2020 03/05/2020 Acute deep vein thrombosis (DVT) 02/29/2020 11/20/2020 S/P coronary angioplasty 11/03/2016 Chest pain 09/15/2016 03/05/2020 Elevated prostate specific antigen (PSA) 10/06/2010 03/05/2020 Hip arthritis 10/06/2010 03/05/2020 Colon polyp 07/15/2010 PATRICE (acute kidney injury) Obstructive uropathy 020 Encounters Date Type Department Care Team Description 01/16/2024 1:30 PM CDT Home Care Visit [address] [address] Doreen Hussein, JAMEL SN - HOME VISIT 01/09/2024 1:30 PM CDT Home Care Visit [address] [address] Doreen Hussein, JAMEL SN - HOME VISIT 12/26/2023 11:30 AM CDT Home Care Visit [address] [address] Doreen Hussein RN SN - HOME VISIT 12/23/2023 11:00 AM CDT Home Care Visit [address] [address] Raffy Carter, PT PT - DISCIPLINE DISCHARGE 12/19/2023 10:00 AM CDT Home Care Visit [address] [address] Doreen Hussein RN SN - HOME VISIT 12/16/2023 11:00 AM CDT Home Care Visit [address] [address] Raffy Carter, PT PT - HOME VISIT 12/13/2023 Orders Only [facility] Scanner 1 scan: (1-Ord) [facility], XR SACRUM COCCYX MIN 2V, 12/13/2023 12/07/[address] [phone] Cesar Mccollum MD Follow Up 12/05/2023 Home Care Visit [address] [address] Doreen Hussein, JAMEL SN - HOME VISIT 12/02/2023 10:30 AM CDT Home Care Visit [address] [address] Raffy Carter, PT PT - REASSESSMENT 12/02/2023 Plan of Care Documentation [address] [address] 11/30/2023 4:00 PM CDT Home Care Visit [address] [address] Doreen Hussein, JAMEL SN - OASIS RECERTIFICATION 11/30/2023 10:30 AM CDT Office Visit [address] [address] Cesar Mccollum MD Follow Up; Medication Management (Discuss plavix - not currently taking it) 11/30/2023 Travel 11/25/2023 11:00 AM CDT Home Care Visit [address] [address] Raffy Carter, PT PT - INITIAL ASSESSMENT 11/23/2023 8:00 AM CDT Home Care Visit [address] [address] Brittanie Prieto RN SN - HOME VISIT 11/21/2023 3:30 PM CDT Home Care Visit [address] [address] Rigo Heart RN SN - OASIS RESUMPTION OF CARE 11/18/2023 Home Care Visit [address] [address] Rufina Cosby RN CARE COORDINATION 11/14/2023 Home Care Visit [address] [address] Raffy Carter, PT PT - OASIS TRANSFER 11/11/2023 10:30 AM CDT Home Care Visit [address] [address] Raffy Carter, PT PT - HOME VISIT 11/09/2023 9:00 AM CDT Home Care Visit [address] [address] Barbara Fuentes RN SN - HOME VISIT 11/07/2023 Home Care Visit [address] [address] Rufina Cosby, RN CARE COORDINATION 11/04/2023 10:30 AM CDT Home Care Visit [address] [address] Raffy Carter, PT PT - HOME VISIT 10/31/2023 11:00 AM CDT Home Care Visit [address] [address] Doreen Hussein, JAMEL SN - HOME VISIT 10/28/2023 10:30 AM CDT Home Care Visit [address] [address] Raffy Carter, PT PT - HOME VISIT 10/25/2023 11:30 AM CDT Home Care Visit [address] [address] Raffy Carter, PT PT - REASSESSMENT 10/24/2023 11:00 AM CDT Home Care Visit [address] [address] Doreen Hussein, JAMEL SN - HOME VISIT 10/24/2023 10:00 AM CDT Home Care Visit [address] [address] Liz Fang, TREE [employer] WHARF LABOURER - HOME VISIT 10/21/2023 12:00 PM CDT Home Care Visit [address] [address] Raffy Carter, PT PT - HOME VISIT 10/20/2023 10:35 AM CDT Office Visit [facility] [address] [place] [address] Cesar Mccollum MD Follow Up; Concerns (Discuss protocol for hyperbaric treatment at hospital) 10/20/2023 Travel from Last 3 Months Immunizations Name Administration Dates Next Due COVID-19 VACCINE SPIKEVAX (M ODERNA 50MCG/0.5ML) 12YO+ PFS 07/21/2023,03/08/2023 COVID-19 vaccine (Pfizer-Bio NTech 30mcg/0.3mL) 12YO+ BIVALENT PF, MDV 09/13/2022,01/28/2022 COVID-19 vaccine (Pfizer-Bio NTech 30mcg/0.3mL) 12YO+ DAYRON-SUCROSE PF, MDV 08/26/2021 COVID-19 vaccine ([employer]Bio NTech 30mcg/0.3mL) PF, MDV 01/13/2021,06/17/2020,2020 Influenza, Inactivated [...] Reading Time Taken Comments Blood Pressure 110/60 01/16/2024 1:50 PM CDT Pulse 71 01/16/2024 1:50 PM CDT Temperature 36.7 ??C (98.1 ??F) 01/16/2024 1:50 PM CD T Respiratory Rate 15 12/23/2023 11:10 AM CDT Oxygen Saturation 100% 01/16/2024 1:50 PM CDT Inhaled Oxygen Concentration - - Weight 80.6 kg (177 lb 9.6 oz) 11/30/2023 10:38 AM CDT Height 177.1 cm (5' 9.72) 07/21/2023 9:05 AM CD T Body Mass Index 25.69 07/21/2023 9:05 AM CDT Plan of Treatment Upcoming Encounters Date Type Department Care Team (Late st Contact Info) Description 01/23/2024 4:00 AM CDT Home Care Visit [facility] [email or web address] [place] [email or web address] [address] [place] [address] Doreen Hussein, RN [address] [place] [address] Health Maintenance Due Date Last [...] Completed 4 Medical Devices Implanted Type Area Flat Examiner Device Identifier Shelf Expiration Date Model / Serial / Lot Stent Uret [id number] Contour - [id number] Implanted:Qty: 1 on 07/18/2023 by Nicola Ware MD at [facility] [place] [facility] Right: [employer]reter [facility] Urology 02/27/2026 [id number] / / [id number] Procedures Procedure Name Priority Date/Time Associated Diagnosis Comments SCAN-RADIOLOGY REPORT 12/13/2023 12:00 AM CDT HEMOGLOBIN Routine 11/30/2023 11:45 AM CDT Chronic blood loss anemia from Last 3 Months Results * SCAN-RADIOLOGY REPORT (12/13/2023 12:00 AM CDT) Anatomical Region Laterality Modality Other Scanner OTHER * (ABNORMAL) HEMOGLOBIN (11/30/2023 11:45 AM CDT) HEMOGLOBIN 10.4(L) 13.5 - 17.5 g/dL 11/30/2023 11:50 AM CDT [facility] MCV 92 80 - 100 fL 11/30/2023 11:50 AM CDT [facility] Blood BLOOD SPECIMEN / Unknown Venipuncture / Unknown 11/30/2023 11:45 AM CDT 11/30/2023 11:45 AM CDT Cesar Mccollum MD HEMATOLOGY [facility] [address] [place] [address], [place] [phone] from Last 3 Months Advance Directives Documents on File Type Date Recorded 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
--- OUTSIDE RECORDS SUMMARY | 2024-01-20 08:59 | XMS_ITS | Encounter Summary ---
Author Organization [facility] Address [address] [place] [address] Care Team Providers Care Tester Sound Name Role Phone Elsewhere, Pcp Primary Care [...] have a [facility] to live 08/13/2023 Sex and [...] documented as of this encounter Care Teams Tester Sound Relationship Specialty Start Date End Date Elsewhere, Pcp PCP - General Internal Medicine 08/13/23 documented as of this encounter
--- OUTSIDE RECORDS SUMMARY | 2024-01-20 08:59 | XMS_ITS | Encounter Summary ---
Author Organization [facility] Address [address] [place] [address] Care Team Providers Care Physiotherapist'S Assistant Name Role Phone Elsewhere, Pcp Primary Care Provider Unavailabl e Encounter Details Date Type Department Care Team (Late st Contact Info) Description 10/27/2023 Clinical Communication Department of Urology in [place], [place] [address] [place] [phone] Burke Strauss M.D. [address] [place] [phone] Social History Tobacco Use Types Packs/Day Years Used Date Smoking Tobacco: Never Smokeless Tobacco: Never [facility] Utilities Answer Date Recorded In the past 12 months has e electric, gas, oil, or water [facility] [employer] threatened to shut off services in your [...] 2:15 PM CDT Patient follows urology in [place] but would like to transfer his care to [place] as it is closer to home. It looks like for Hematuria. Is this patient ok to see you? He has a catheter in and will need cath changes going forward. documented in this encounter Plan of Treatment Not on file documented as of this encounter Visit Diagnoses Not on filedocumented in this encounter Care Teams Physiotherapist'S Assistant Relationship Specialty Start Date End Date Elsewhere, Pcp PCP - General Internal Medicine 08/13/23 documented as of this encounter
--- OUTSIDE RECORDS SUMMARY | 2024-01-20 08:59 | XMS_ITS | Encounter Summary ---
Author Organization [facility] Address [address] [place] [address] Care Team Providers Care Sourcing Internship Name Role Phone Elsewhere, Pcp Primary Care Provider Unavailabl e Reason for Referral * Outpatient (Routine) - Closed Specialty Diagnoses / Procedures Referred By Leyla t Referred To Contact Urology Burke Strauss M.D. [address] [place] [phone] [facility] Referral ID Status Reason Start Date Expiration Date Visits Re quested Visits Authorized [id number] Closed 11/09/2023 05/10/2025 1 1 * Outpatient (Routine) - Authorized Specialty Diagnoses / Procedures Referred By Contaraceli t Referred To Contact Diagnoses Retention Urinary Chronic Procedures URO Urethral cath change (UCC) Burke Strauss M.D. [address] [place] [phone] [facility] Region Referral ID Status Reason Start Date Expiration Date V isits Requested Visits Authorized [id number] Authorized 11/09/2023 11/08/2024 15 15 Reason for Visit * Reason Comments Consult Discuss catheter thomas nges * Appointment Request (Routine) - Closed Specialty Diagnoses / Procedures Referred By Leyla rosenthal Referred To Contact Urology Referral ID Status Reason Start Date Expiration Date Visits Re quested Visits Authorized [id number] Closed 10/27/2023 10/26/2024 1 1 Encounter Details Date Type Department Care Team (Late st Contact Info) Description 11/09/2023 11:00 AM CDT Office Visit Department of Urology in [place], [place] [address] [place] [phone] Burke Strauss M.D. [address] [place] [phone] Primary Malignant Neoplasm Of Prostate (HCC) (Primary Dx); Retention Urinary Chronic; Hematuria Gross Discharge Disposition: Home or Self Care Social History Tobacco Use Types Packs/Day Years Used Date Smoking Tobacco: Never Smokeless Tobacco: Never [facility] Surgery Academyities Answer Date Recorded In the past 12 months has [facility] electric, gas, oil, or water [employer] threatened to shut off services in your [...] ILLNESS Patient presents to establish care from [facility]. He has multiple urologic issues [...] the past few days. Original plan from Emily was to exchange his left nephrostomy tube in 3 months, due 12/14/2023. He reports getting good output from the left neph tube without hematuria. His radiation cystitis, radiation proctitis and sacral ulcer currently being treated with hyperbaric oxygen therapy through the [facility] in [facility]. He has completed 19 of 45 planned treatments and expects to finish that course in early December. Metastatic prostate cancer is being managed by [facility], Dr. Mireya Tan. Release of [...] an antegrade nephrogram through Interventional Radiology in [place] prior to nephrostomy tube removal. documented in [...] Gross documented in this encounter Care Teams Sourcing Internship Relationship Specialty Start Date End Date Elsewhere, Pcp PCP - General Internal Medicine 08/13/23 documented as of this encounter
--- OUTSIDE RECORDS SUMMARY | 2024-01-20 08:59 | XMS_ITS | Encounter Summary ---
Author Organization [facility] Address [address] [place] [address] Care Team Providers Care Electrical Maintenance Engineer Name Role Phone Elsewhere, Pcp Primary Care Provider Unavailabl e Encounter Details Date Type Department Care Team (Late st Contact Info) Description 11/14/2023 Documentation Department of Urology in [place], [place] [address] [place] [phone] Sowmya Aviles, ARUN, C.N.P., M.S.N. [address] [place] [phone] Social History Tobacco Use Types Packs/Day Years [...] - 11/14/2023 3:31 PM CDT Contacted via [facility] regarding this patient. Not personally seen or evaluated as patient is in the [facility] Emergency Department. Kalen Vega is a 83 y.o. male with medical comorbidities of acute DVT on Plavix, coronary artery disease status post stent, degenerative joint disease, hyperlipidemia, lymphedema, prediabetes. 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 Tan in [place], [place]. Right hydronephrosis and right atrophic kidney [...] was readmitted to hospital. He presented to [facility] Emergency Department today for evaluation of hematuria and no drainage into urinary catheter. He reports leakage around the catheter of urine and blood clots. A 22 Tajik three-way catheter was placed, patient was hand [...] on filedocumented in this encounter Care Teams Electrical Maintenance Engineer Relationship Specialty Start Date End Date Elsewhere, Pcp PCP - General Internal Medicine 08/13/23 documented as of this encounter
--- OUTSIDE RECORDS SUMMARY | 2024-01-20 08:59 | XMS_ITS | Encounter Summary ---
Author Organization [facility] Address [address] [place] [address] Care Team Providers Care Boarding Machine Operator Name Role Phone Elsewhere, Pcp Primary Care Provider Unavailabl e Encounter Details Date Type Department Care Team (Late st Contact Info) Description 11/09/2023 Clinical Communication Department of Urology in [place], [place] [address] [place] [phone] Burke Strauss M.D. [address] [place] [phone] Social History Tobacco Use Types Packs/Day Years [...] on filedocumented in this encounter Care Teams Boarding Machine Operator Relationship Specialty Start Date End Date Elsewhere, Pcp PCP - General Internal Medicine 08/13/23 documented as of this encounter
== END 2024-01-20 08:55 | disposition home or self-care (01) ==
LOC: WOUND 08:54
PROVIDERS: PCP Family Medicine; Visit Provider Nurse Practitioner Family
DX: N30.41 Irradiation cystitis with hematuria (principal); L89.153 Pressure ulcer of sacral region, stage 3; K62.7 Radiation proctitis; C61 Malignant neoplasm of prostate; D64.9 Anemia, unspecified
CPT/HCPCS: 15271; G0277; Q4201

== ENCOUNTER 2024-01-27 08:47 | Outpatient (CLI) | payer MEDICARE, OTHER, SELFPAY ==
--- OUTSIDE RECORDS SUMMARY | 2024-01-27 08:49 | XMS_ITS ---
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 11/15/2023 Atherosclerotic Heart Diseas e Of [place] Coronary Artery Without Angina Pectoris 11/15/2023 Overview (11/15/2023): stent placements 2017 Complication Procedure Initial 11/15/2023 Deficiency Iron 11/15/2023 Hyperlipidemia 11/15/2023 Hypertension Essential Primary 11/15/2023 Thoracic Medicine Physician Current Use Of Oth er Agents Affecting Estrogen Receptors And Estrogen Levels 11/15/2023 Presence Of Other Vascular Implants And Grafts 0 11/15/2023 Other Specified Disorders Of Bladder 11/15/2023 Other Retention Of Urine 11/15/2023 PreDiabetes 11/15/2023 Presence Of Urogenital Implants 11/15/2023 Unspecified Complication Of Genitourinary Prosthetic Device Implant And Graft Initial 11/15/2023 Inferior Vena Cava Filter 11/15/2023 Assisted (Current) Anticoagulant Treatment 09/2023 Presence Of Other [...] On Elapsed Days Session Dose Total Dose [id number] 04/28/2020 32 300 cGy 6,000 cGy Lifetime Dose Tracking * Chemical Lifetime Dose Automatic Entry Manual Entr y Radiation 58.71 mGy 58.71 mGy 0 mGy Fluoro Time 6.905 minutes 6.905 minutes 0 minutes DAP (uGy-m2) 1,232.05 uGy-m2 1,232.05 uGy-m2 0 uGy-m2 Resolved Problems Problem Noted Date Diagnosed Date Resolved Date Hematuria Gross 08/31/2023 11/17/2023
--- OUTSIDE RECORDS SUMMARY | 2024-01-27 08:49 | XMS_ITS ---
Author Organization [facility] Address [address] [place] [address] Care Team Providers Care Tub Chucker Name Role Phone Unavailable Unavailable Unavailable Surgery Details Not on file Complications Check Surgery Details section. Procedure Estimated Blood Loss Check Surgery Details section. Procedure Findings Check Surgery Details section. Procedure Specimens Taken Check Surgery Details section.
--- OUTSIDE RECORDS SUMMARY | 2024-01-27 08:49 | XMS_ITS | Referral Summary ---
Author Organization [facility] Address [address] [place] [address] Care Team Providers Care Bindery Machine Setter Name Role Phone Elsewhere, Pcp Primary Care Provider Unavailabl e Source Comments Patient records contain information from all sites at [facility]. For routine questions regarding patient records, call [phone] during business hours, M-F 8:00 AM - 5:00 PM Central Time. Record requests for emergency care only can be directed to [phone] at any time.[facility] Encounters Date Type Department Care Team Description 01/18/2024 Clinical Communication Department of Urology in [address] [phone] Burke Strauss M.D. Communication (Questions on return visit with Dr. Strauss) 01/16/2024 Clinical Communication Department of Urology in [place], [place] [address] [place] [address] Burke Strauss M.D. Communication (Follow up questions) 01/12/2024 8:30 AM CDT - 01/12/2024 9:52 AM CDT Hospital Encounter Department of Radiology in [address] [phone] Ingrid Desai M.D. Chow, Andrew Z, M.D. Nephrostomy Status Post (HCC) (Primary Dx); Primary Malignant Neoplasm Of Prostate (HCC) Discharge Disposition: Home or Self Care 01/11/2024 Clinical Communication Department of Radiology in [place], [place] [address] [place] [address] Ingrid Desai M.D. 01/11/2024 10:18 AM CDT - 01/11/2024 11:59 PM CDT Hospital Encounter Department of Laboratory Medicine in [address] [phone] Burke Strauss M.D. Retention Urinary Chronic Discharge Disposition: Home or Self Care 01/11/2024 10:00 AM CDT Office Visit Department of Urology in [address] [address] Burke Strauss M.D. Retention Urinary Chronic (Primary Dx); Radiation Therapy Cystitis With Hematuria; Primary Malignant Neoplasm Of Prostate (HCC); Nephrostomy Status Post (HCC) Discharge Disposition: Home or Self Care 01/11/2024 9:00 AM CDT Procedure visit Department of Urology in [address] [address] Burke Strauss M.D. Factor, Keli Wray, R.NJonah Retention Urinary Chronic Discharge Disposition: Home or Self Care 01/09/2024 Documentation Department of Urology in [place], [place] [address] [place] [phone] Corin Ring M.D. 01/09/2024 2:59 PM CDT - 01/09/2024 6:29 PM CDT Emergency [facility] [address] [place] [phone] Sergio Raza M.D. Nephrostomy Status Post (HCC) (Primary Dx) Discharge Disposition: Home or Self Care 12/13/2023 9:15 AM CDT Nurse Only Department of Urology in [address] [address] Burke Strauss M.D. Gray, Margaret A, L.P.N. Nurse Visit (Catheter Irrigation ) Discharge Disposition: Home or Self Care 12/08/2023 9:30 AM CDT Office Visit Department of Urology in [address] [address] Burke Strauss M.D. Retention Urinary Chronic (Primary Dx); Anemia; Anemia In Neoplastic Disease; Quarry Plug And Feather Driller (Current) Anticoagulant Treatment Discharge Disposition: Home or Self Care 12/07/2023 12:19 PM CDT - 12/07/2023 11:59 PM CDT Hospital Encounter Department of Laboratory Medicine in [address] [address] Burke Strauss M.D. Anemia; Hematuria Gross; Retention Urinary Chronic Discharge Disposition: Home or Self Care 12/07/2023 10:30 AM CDT Office Visit Department of Urology in [address] [address] Burke Strauss M.D. Hematuria Gross (Primary Dx); Radiation Therapy Cystitis With Hematuria; Anemia; Retention Urinary Chronic Discharge Disposition: Home or Self Care 11/30/2023 6:44 PM CDT - 11/30/2023 8:06 PM CDT Emergency [facility] [address] [place] [phone] Carmen Cherry M.D., M.P.H. Leakage Of Other Urinary Catheter Initial (HCC) (Primary Dx) Discharge Disposition: Home or Self Care 11/14/2023 11:38 PM CDT - 11/17/2023 3:55 PM CDT Hospital Encounter [facility] [place], Fifth Floor [address] [place] [phone] Eliceo Guerrier M.D., Ph.D. Sylvie Álvarez M.B.B.S., M.D. Pokhai, Gabriel, M.D. Gabe Buckley M.D. Hematuria Gross (Primary Dx) Discharge Disposition: [place] [facility]/15/2023 10:40 AM CDT Ancillary Procedure Department of Wound Ostomy 11/14/2023 Documentation Department of Urology in [address] [address] Sowmya Aviles APRN C.N.PJonah, M.S.N. 11/14/2023 Intake [facility] 11/14/2023 10:44 AM CDT - 11/14/2023 10:23 PM CDT Emergency [facility] [address] [place] [phone] Sergio Raza M.D. Hematuria (Primary Dx); Malfunction Mechanical Urethral Catheter Initial (HCC) Discharge Disposition: Acute Care Hospital 11/10/2023 Clinical Communication Department of Urology in [address] [phone] Burke Strauss M.D. Oncology records request 11/09/2023 Clinical Communication Department of Urology in [address] [address] Burke Strauss M.D. 11/09/2023 11:00 AM CDT Office Visit Department of Urology in [address] [address] Burke Strauss M.D. Primary Malignant Neoplasm Of Prostate (HCC) (Primary Dx); Retention Urinary Chronic; Hematuria Gross Discharge Disposition: Home or Self Care 10/27/2023 Clinical Communication Department of Urology in [address] [address] Burke Strauss M.D. from Last 3 Months Allergies No known active allergies Medications amLODIPine (NORVASC) 10 mg tablet Take 10 [...] time each day. Swallow it whole. Active iron,carbonyl- vitamin C (VITRON-C) 65 mg iron- [address] tablet Take 65 mg of iron by mouth every morning. Do not crush or chew. Active coenzyme Q10 (CO Q-10) 200 mg capsule Take 200 mg by mouth daily. Active cholecalcifero l (Vitamin D3) 50 mcg (2,000 Unit) tablet [...] morning. 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 And Estrogen Levels 11/15/2023 Presence Of Other Vascular Implants And Grafts 0 11/15/2023 Other Specified Disorders Of Bladder 11/15/2023 Other Retention Of Urine 11/15/2023 PreDiabetes 11/15/2023 Presence Of Urogenital Implants 11/15/2023 Unspecified Complication Of Genitourinary Prosthetic Device Implant And Graft Initial 11/15/2023 Inferior Vena Cava Filter 11/15/2023 Quarry Plug And Feather Driller (Current) Anticoagulant Treatment 09/2023 Presence Of Other [...] Cessation:Counseling Given: Not Answered [facility] Utilities Answer Date Recorded In the past 12 months has e [employer], gas, oil, or water company threatened to [...] a [facility] to live 11/15/2023 Sex and Gender Information Value Date Recorded Sex Assigned at Not on file Legal Sex Male 10:48 AM CDT Gender Identity Not on file Sexual Orientation [...] 01/09/2024 2:56 PM CDT Plan of Treatment Upcoming Encounters Date Type Department Care Team (Latest Contact Info) Description 02/01/2024 10:00 AM CDT Procedure visit Department of Urology in [address] [phone] Burke Strauss M.D. [facility] [place] [address] Discharge Disposition: Home or Self Care Medical Devices Implanted Type Area Longshore Equipment Operator Device Identifier Shelf Expiration Date Model / Serial / Lot Clp Hrzn Ti 6 Clp Lg Orng - [id number] Implanted:Qt y: 1 on 08/15/2023 by Boubacar Brock M.D. at [facility] Hardware e.g. pins/screws /rods Abdomen Teleflex Predictry [id number] 02/29/2028 [id number] / / [id number] Clp Hrzn Ti 6 Clp Lg Orng - [id number] Implanted:Qt y: 1 on 08/15/2023 by Boubacar Brock M.D. at [facility] Hardware e.g. pins/screws /rods Abdomen [employer] [id number] 02/29/2028 [id number] / / [id number] Clp Hrzn Ti 6 Clp Md Monty - [id number] Implanted:Qt y: 1 on 08/15/2023 by Boubacar Brock M.D. at [facility] Hardware e.g. pins/screws /rods Abdomen Teleflex Predictry [id number] 03/13/2028 [id number] / / [id number] Clp Hrzn Ti 6 Clp Monty - [id number] Implanted:Qt y: 1 on 08/15/2023 by Boubacar Brock M.D. at [facility] Hardware e.g. pins/screws /rods Abdomen Teleflex Predictry [id number] 03/21/2028 [id number] / / [id number] 3 Stnt Uret Inl 6fx24 - [id number] Implanted:Qt y: 1 on 08/15/2023 by Jakob De Paz M.D. at [facility] Ureteral Stent N/A: Ureter C.[employer].Bard [id number] 11/18/2027 [id number] / / [id number] Procedures Procedure Name Priority Date/Time Associated Diagnosis [...] Patient education provided by a care steam generating powerplant mechanic. Patient was ready to learn with no apparent learning barriers were identified. Post-procedure care explained; patient expressed understanding of the content. PROCEDURE DETAILS: Sedation: None. Sedation time: Not applicable. Estimated Blood Loss: Less than 10 mL. TECHNIQUE: Imaging guidance for catheter exchange: Fluoroscopy with permanent image storage Access side: Left Catheter: 10.2 [place] 25 cm pigtail nephrostomy catheter Technique: The indwelling 10.2 [place] catheter was injected with contrast. A guidewire was inserted through the catheter but was unable to advance the catheter back into the renal pelvis. Micropuncture was used to place a new wire in tandem with the catheter into the renal pelvis. The indwelling catheter was removed and exchanged for a new 10.2 [place] catheter. A permanent image was saved to [...] Patient education provided by a care steam generating powerplant mechanic. Patient was ready to learn withno apparent learning barriers were identified. Post-procedure careexplained; patient expressed understanding of the content. PROCEDURE DETAILS: Sedation: None. Sedation time: Not applicable. Estimated Blood Loss: Less than 10 mL. TECHNIQUE: Imaging guidance for catheter exchange: Fluoroscopy with permanent imagestorage Access side: Left Catheter: 10.2 [place] 25 cm pigtail nephrostomy catheter Technique: The indwelling 10.2 [place] catheter was injected with contrast.A guidewire was inserted through the catheter but was unable to advancethe catheter back into the renal pelvis. Micropuncture was used to place anew wire in tandem with the catheter into the renal pelvis. The indwelling catheter was removed andexchanged for a new 10.2 [place] catheter. A permanent image was saved toPACS. [...] pelvis. Ingrid Desai M.D. IMG IR PROCEDURES Final Result * (ABNORMAL) Basic Metabolic Panel (01/11/2024 10:25 [...] 10:25 AM CDT 01/11/2024 10:41 AM CDT us Burke Strauss M.D. LAB BLOOD ADD-ON Final Resu lt [facility] [address] [place] [address], [place] NPR[facility] [address] [place] [address] * CT Abdomen Pelvis with IV Contrast [...] metastases. Sergio Raza M.D. Prieto CT PROCEDURES Final Resu lt * Hepatic Function Panel (01/09/2024 4:29 PM [...] CDT Sergio Raza M.D. LAB BLOOD ADD-ON Final Resul t Performing Organization Address City/[facility]/ZIP Co de Phone Number [facility] [address] [place] [address], [facility] [address] [address] * (ABNORMAL) Lipase (01/09/2024 4:29 PM CDT) Lipase, P 12(L) 13 - 60 U/L 01/09/2024 4: 46 PM CDT NPRG Blood (Blood, Venous) 01/09/2024 4:29 PM CDT 01/09/2024 4:32 PM CDT Sergio Raza M.D. LAB BLOOD ADD-ON Final Resul t Performing Organization Address City/[facility]/ZIP Co de Phone Number [facility] [address] [place] [address], [address] [address] * (ABNORMAL) Hemoglobin (12/07/2023 12:25 PM CDT) Only the most recent of2 resultswithin the time period is included. Hemoglobin 9.2(L) 13.2 - 16.6 g/dL 12/07/2023 12:33 PM CDT NPRG Blood (Blood, Venous) 12/07/2023 12:25 PM CDT 12/07/2023 12:27 PM CDT us Burke Strauss M.D. LAB BLOOD ADD-ON Final Resu lt Performing Organization Address City/[facility]/ZIP Co de Phone Number [facility] [address] [place] [address], [facility] NPRG [place] [address] [place] [address] * Creatinine with Estimated GFR (12/07/2023 12:25 PM CDT) Creatinine 1.13 0.74 - 1.35 mg/dL 12/07/2023 12:49 PM CDT NPRG Estimated GFR (eGFR) 64 >=60 mL/min/BSA 12/07/2023 12:49 PM CDT NPRG Comment: Estimated GFR calculated using the 2020 CKD_EPI creatinine equation. Blood (Blood, Venous) 12/07/2023 12:25 PM CDT 12/07/2023 12:27 PM CDT us Burke Strauss M.D. LAB BLOOD ADD-ON Final Resu lt Performing Organization Address [facility] Co de Phone Number [facility] [address] [place] [address], [facility] NPRG [address] [address] * (ABNORMAL) CBC without Differential (11/17/2023 7:24 [...] 7:24 AM CDT 11/17/2023 7:33 AM CDT us Candelaria Rivas D.O. LAB BLOOD ADD-ON Final Re sult Performing Organization Address City/[facility]/ZIP Co de Phone Number [facility] [address] [place] [address] * Glucose, POCT (11/17/2023 6:45 AM CDT) Glucose, POCT, B 107 70 - 140 mg/dL 11/17/2023 6:45 AM CDT MKTO Blood 11/17/2023 6:45 AM CDT 11/17/2023 7:03 AM CDT us Generic Rals LAB POCT ORDERABLES-MANUAL Final Result Performing Organization Address City/[facility]/ZIP Co de Phone Number [facility] [address] [place] [address] * (ABNORMAL) CBC with Differential, Blood (11/16/2023 [...] 6:25 AM CDT 11/16/2023 6:56 AM CDT us Rashawn Vences M.D. LAB BLOOD ADD-ON Final Resul t [facility] [address] [place] [address], [facility] MKTO [facility] [place] [address] [place] [address] * (ABNORMAL) Comprehensive Metabolic Panel (11/16/2023 6:25 [...] 6:25 AM CDT 11/16/2023 6:56 AM CDT us Rashawn Vences M.D. LAB BLOOD ADD-ON Final Resul t Performing Organization Address [facility] Co de Phone Number [facility] [address] [place] [address], [place] [address] * Transfuse Red Blood Cells : (11/15/2023 6:35 PM CDT) us Madelyn Cesar D.O. BLOOD TRANSFUSION ORDERABLES F inal Result * Testing Location (11/15/2023 11:09 AM CDT) Testing Location [facility] DEFAULT 11/15/2023 11:47 AM CDT MKTO Blood 11/15/2023 11:0 9 AM CDT 11/15/2023 11:47 AM CDT us Sergio Raza M.D. LAB BLOOD BANK TEST ORDERABL ES Final Result Performing Organization Address [facility] de Phone Number [facility] [address] [place] [address], [place] [address] * Coccyx-Wound Ostomy Image Exam (11/15/2023 10:40 AM CDT) 11/15/2023 10:3 7 AM CDT Narrative [facility] - 11/15/2023 10:40 AM CDT This order has been created and auto-finalized to support the import of images acquired without order. The clinical documentation to support these images can be found on the encounter that produced images. us Provider Not In System IMG NON RAD IMAGING PROCE DURES Final Result Performing Organization Address [facility] Co de Phone Number [facility] NA * ECG 12 Lead (11/15/2023 6:47 AM CDT) Pathologist [facility] Ventricular Rate ECG/Min 65 BPM MUSE AL Interval 144 ms MUSE QRSD Interval 76 ms MUSE QT Interval 430 ms MUSE QTC Interval 447 ms MUSE P [place] -7 degrees MUSE R [place] 9 degrees MUSE T Wave [place] 19 degrees MUSE 11/15/2023 6:47 AM CDT [...] by BETTY Powers Sylvie Wright M.D. ECG ORDERABLES Final Result MUSE NA * (ABNORMAL) Urinalysis with Microscopic if Indicated (11/15/2023 6:25 AM CDT) Pathologist [facility] Source Urine, Urine, Midstream 11/15/2023 7:49 AM [...] to determine due to color interference Specific [place] SEE COMMENT 1.001 - 1.035 11/15/2023 8:03 AM CDT MKTO Comment:Unable to determine due to color interference Urobilinogen SEE COMMENT 0.2 - 1.0 mg/dL 11/15/2023 8:03 AM CDT MKTO Comment:Unable to determine due to color interference Urine (Urine, Midstream) 11/15/2023 6:25 AM CDT 11/15/2023 6:34 AM CDT Sylvie Wright M.D. LAB URINE ORDER JUAN M Final Result [facility] [address] [place] [address], [place] [address] * (ABNORMAL) Microscopic Automated (11/15/2023 6:25 AM [...] 6:25 AM CDT 11/15/2023 6:34 AM CDT us Sylvie Wright M.D. LAB URINE ORDER JUAN M Final Result Performing Organization Address [facility] Co de Phone Number [facility] [address] [place] [address], [place] [address] * Bacterial Culture, Aerobic + Susceptibility, Urine (11/15/2023 6:24 AM CDT) Urine Culture Urogenital microbiota, susceptibilities not performed per laboratory criteria. 11/16/2023 11:36 AM CDT MKTO Urine (Urine, Indwelling Catheter) 11/15/2023 6:24 AM CDT 11/15/2023 9:29 AM CDT Comment:Specimen Source Site : Urine us Zachery Tanner APRN C.N.P., M.S. LAB MICROBIOLOGY - GENERAL ORDERABLES Final Result Performing Organization Address [facility] Co de Phone Number [facility] [address] [place] [address], [place] [address] * CT Abdomen Pelvis without IV Contrast [...] which is unchanged compared with multiple priorexams. us Sergio Raza M.D. IMG CT PROCEDURES Final Resu lt * Blood Bank Hold Sample (11/14/2023 11:09 AM CDT) Blood Bank Hold Sample HOLD Confirmed 11/14/2023 11:31 AM CDT NPRG Blood (Blood, Venous) 11/14/2023 11:09 AM CDT 11/14/2023 11:12 AM CDT us Sergio Raza M.D. LAB BLOOD BANK TEST ORDERABL ES Final Result [facility] [address] [place] [address], [place] NPRG [place] [address] [place] [address] * Type and Screen (with Reflex Antibody [...] 9 AM CDT 11/15/2023 11:47 AM CDT us Sergio Raza M.D. LAB BLOOD BANK TEST ORDERABL ES Final Result [facility] [address] [place] [address], [facility] NPR[facility] [address] [place] [address] from Last 3 Months Insurance MEDICARE MEDICA Advance Directives For more information, please contact: [phone] * Full Code (Latest Code Status on [...] Answer Comments Full Code: Discussed Care Teams Bindery Machine Setter Relationship Specialty Start Date End Date Elsewhere, Pcp PCP - General Internal Medicine 08/13/23
--- OUTSIDE RECORDS SUMMARY | 2024-01-27 08:49 | XMS_ITS | Encounter Summary ---
Author Organization [facility] Address [address] [place] [address] Care Team Providers Care Credit Relationship Manager Name Role Phone Elsewhere, Pcp Primary Care Provider Unavailabl e Reason for Referral * Outpatient (Routine) - Authorized Specialty Diagnoses / Procedures Referred By Contac t Referred To Contact Diagnoses Retention Urinary Chronic Procedures URO Urethral cath removal & voiding trial (UCO/VT) Wili Sosa M.D. [address] [place] [phone] Phone: tel: fax: [facility] Region Referral ID Status Reason Start Date Expiration Date V isits Requested Visits Authorized [id number] Authorized 01/23/2024 01/22/2025 1 1 Reason for Visit * Reason Onset Date Comments Communication 01/18/2024 Questions on ret urn visit with Dr. Sosa Encounter Details Date Type Department Care Team (Latest Contact Info) Description 01/18/2024 Clinical Communication Department of Urology in [address] [address] Wili Sosa M.D. [address] [place] [phone] Communication (Questions on return visit with Dr. Sosa) Social History Tobacco Use Types Packs/Day Years Used Date Smoking Tobacco: Never Smokeless Tobacco: Never [facility] Utilities Answer Date Recorded In the past 12 months has [facility] electric, gas, oil, or water company [...] as of this encounter Miscellaneous Notes * Addendum Note - Wili Sosa M.D. - 01/23/2024 4:44 PM CDTAddended by: WILI SOSA on: 01/23/2024 04:44 PM Modules accepted: Orders * Telephone Encounter - Wili Sosa M.D. - 01/23/2024 4:41 PM CDT Spoke with his son, Kar. Nephrostomy tube is in place, draining well. Urethral catheter is also inplace, also draining clear urine. Patient will come in for a trial of void sometime next week, please contact him to schedule, preferably 01/31 or 02/01 in the morning. Patient did not tolerate a fill and pull with his last attempt, bladder spasms resulted in immediate leakage of urine. Plan will be to remove the catheter, then see if patient is able to void throughthe remainder of the day. * Telephone Encounter - Keli Denton R.N. - 01/19/2024 8:21 AM CDT Patient had appointment on 01-11-[address] Sosa for Chronic Urinary Retention. Patient also hadurethral [...] exchange with placement of a new 10.2 [place] 25 cm pigtail nephrostomy tube into the [...] Procedure visit Department of Urology in [place], [place] [address] [place] [phone] Wili Sosa M.D. [address] [place] [phone] Discharge Disposition: Home or Self Care Scheduled Orders Name Type Priority Associated Diagnoses Orde r Schedule URO Urethral cath removal & voiding trial (UCO/VT) Procedure Routine Retention Urinary Chronic Expected: 02/01/2024, Expires: 04/24/2025 documented as of this encounter Visit Diagnoses Diagnosis Retention Urinary Chronic- Primary documented in this encounter Care Teams Credit Relationship Manager Relationship Specialty Start Date End Date Elsewhere, Pcp PCP - General Internal Medicine 08/13/23 documented as of this encounter
--- OUTSIDE RECORDS SUMMARY | 2024-01-27 08:49 | XMS_ITS | Referral Summary ---
Author Organization [place] Address [address] [place] [address] Care Team Providers Care Aeronautical Engineering Teacher Name Role Phone Cesar Mccollum Primary Care Provider [phone] Allergies No known active allergies Medications Medication [...] on file Medical Devices Implanted Type Area Metal Burnisher Device Identifier Shelf Expiration Date Model / Serial / Lot Stent Ureteral Polaris Ultra [id number] Implanted:Qty : 1 on 02/08/2022 by Niocla Ware MD at [facility] Stent Right: Ureter [employer] [id number] 10/08/2024 [id number] Explanted Type Area Metal Burnisher Device Identifier Shelf Expiration Date Model / Serial / Lot Stent Came Out Of The Right Ureter Explanted:Qty: 1 on 02/08/2022 by Nicola Ware MD at [facility] Right: Urethra Advance Directives For more information, please contact: [phone] Documents on File Type Date Recorded Patient Time Clock Repairer Expl anation Advance Directives and Living Will 02/17/2022 Health Care Directiv e 05/15/2021 Healthcare Agents on File Name Relationship Healthcare Agent Relationship Communication Mindy Waterman Daughter [employer] Alterna te Health Care Agent Meera Vega Spouse Health Care Agent [phone] (Home) Favio Vega Son Co-First Altern ate Health Care Agent Tereso Vega Son [employer] Alterna te Health Care Agent Care Teams Aeronautical Engineering Teacher Relationship Specialty Start Date End Date Cesar Mccollum [address] [place] [address] PCP - General Family Medicine 11/22/22
--- OUTSIDE RECORDS SUMMARY | 2024-01-27 08:49 | XMS_ITS | Clinical Summary ---
Author Organization [facility] Address [address] [place] [address] Care Team Providers Care Fermenter Operator Name Role Phone Elsewhere, Pcp Primary Care Provider Unavailabl e Source Comments Patient records contain information from all sites at [facility]. For routine questions regarding patient records, call [phone] during business hours, M-F 8:00 AM - 5:00 PM Central Time. Record requests for emergency care only can be directed to [phone] at any time.[facility] Allergies No known active allergies Medications amLODIPine [...] minutes, take the second dose and call [phone] Active tamsulosin (FLOMAX) 0.4 mg 24 [...] every morning. 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 Communication (Questions on return visit with Dr. Strauss) 01/16/2024 Clinical Communication Department of Urology in [place], [place] [address] [place] [phone] Burke Strauss M.D. Communication (Follow up questions) 01/12/2024 8:30 AM CDT - 01/12/2024 9:52 AM CDT Hospital Encounter Department of Radiology in [address] [address] Ingrid Desai M.D. Chow, Andrew Z, M.D. Nephrostomy Status Post (HCC) (Primary Dx); Primary Malignant Neoplasm Of Prostate (HCC) Discharge Disposition: Home or Self Care 01/11/2024 10:18 AM CDT - 01/11/2024 11:59 PM CDT Hospital Encounter Department of Laboratory Medicine in [address] [address] Burke Strauss M.D. Retention Urinary Chronic Discharge Disposition: Home or Self Care 01/11/2024 10:00 AM CDT Office Visit Department of Urology in [address] [address] Burke Strauss M.D. Retention Urinary Chronic (Primary Dx); Radiation Therapy Cystitis With Hematuria; Primary Malignant Neoplasm Of Prostate (HCC); Nephrostomy Status Post (HCC) Discharge Disposition: Home or Self Care 01/11/2024 9:00 AM CDT Procedure visit Department of Urology in [address] [address] Burke Strauss M.D. Factor, Piper L, RJonahNJonah Retention Urinary Chronic Discharge Disposition: Home or Self Care 01/11/2024 Clinical Communication Department of Radiology in [address] [address] Ingrid Desai M.D. 01/09/2024 2:59 PM CDT - 01/09/2024 6:29 PM CDT [facility] [place] [facility] [address] [place] [address] Sergio Raza M.D. Nephrostomy Status Post (HCC) (Primary Dx) Discharge Disposition: Home or Self Care 01/09/2024 Documentation Department of Urology in [place], [place] [address] [place] [phone] Corin Ring M.D. 12/13/2023 9:15 AM CDT Nurse Only Department of Urology in [address] [address] Burke Strauss M.D. Gray, Margaret A, L.P.N. Nurse Visit (Catheter Irrigation ) Discharge Disposition: Home or Self Care 12/08/2023 9:30 AM CDT Office Visit Department of Urology in [address] [address] Burke Strauss M.D. Retention Urinary Chronic (Primary Dx); Anemia; Anemia In Neoplastic Disease; Quality Assurance Associate (Current) Anticoagulant Treatment Discharge Disposition: Home or Self Care 12/07/2023 12:19 PM CDT - 12/07/2023 11:59 PM CDT Hospital Encounter Department of Laboratory Medicine in [address] [address] Burke Strauss M.D. Anemia; Hematuria Gross; Retention Urinary Chronic Discharge Disposition: Home or Self Care 12/07/2023 10:30 AM CDT Office Visit Department of Urology in [address] [address] Burke Strauss M.D. Hematuria Gross (Primary Dx); Radiation Therapy Cystitis With Hematuria; Anemia; Retention Urinary Chronic Discharge Disposition: Home or Self Care 11/30/2023 6:44 PM CDT - 11/30/2023 8:06 PM CDT [facility] [place] [facility] [address] [place] [phone] Carmen Cherry M.D., M.P.H. Leakage Of Other Urinary Catheter Initial (HCC) (Primary Dx) Discharge Disposition: Home or Self Care 11/15/2023 10:40 AM CDT Ancillary Procedure Department of Wound Ostomy 11/14/2023 11:38 PM CDT - 11/17/2023 3:55 PM CDT Hospital Encounter [facility], Fifth Floor [address] [place] [address] Eliceo Guerrier M.D., Ph.D. Sylvie Álvarez M.B.B.S., M.D. Pokhai, Gabriel, M.D. Burkland, Carl B, M.D. Hematuria Gross (Primary Dx) Discharge Disposition: Home-Health Care [facility] 11/14/2023 10:44 AM CDT - 11/14/2023 10:23 PM CDT Emergency [place] [facility] [address] [place] [address] Sergio Raza M.D. Hematuria (Primary Dx); Malfunction Mechanical Urethral Catheter Initial (HCC) Discharge Disposition: [facility] 11/14/2023 Documentation Department of Urology in [address] [address] Sowmya Aviles APRN C.N.P., M.S.N. 11/14/2023 Intake [facility] 11/10/2023 Clinical Communication Department of Urology in [address] [address] Burke Strauss M.D. Oncology records request 11/09/2023 11:00 AM CDT Office Visit Department of Urology in [address] [address] Burke Strauss M.D. Primary Malignant Neoplasm Of Prostate (HCC) (Primary Dx); Retention Urinary Chronic; Hematuria Gross Discharge Disposition: Home or Self Care 11/09/2023 Clinical Communication Department of Urology in [address] [address] Burke Strauss M.D. 10/27/2023 Clinical Communication Department of Urology in [address] [address] Burke Strauss M.D. from Last 3 Months Social History Tobacco Use Types Packs/Day Years Used Date Smoking Tobacco: Never Smokeless Tobacco: Never Tobacco Cessation:Counseling Given: Not Answered [facility] Utilities Answer Date Recorded In the past 12 months has e [employer], gas, oil, or water company threatened to [...] living situation today? I have a [facility] place to live 11/15/2023 Sex [...] CDT Procedure visit Department of Urology in [address] [address] Burke Strauss M.D. [address] [place] [address] Discharge Disposition: Home or Self Care Health [...] Completed 01/12/2024 Medical Devices Implanted Type Area Forming And Assembling Supervisor Device Identifier Shelf Expiration Date Model / Serial / Lot Clp Hrzn Ti 6 Clp Lg Orng - [id number] Implanted:Qt y: 1 on 08/15/2023 by Boubacar Brock M.D. at [facility] Hardware e.g. pins/screws /rods [employer] [id number] 02/29/2028 [id number] / / [id number] Clp Hrzn Ti 6 Clp Lg Orng - [id number] Implanted:Qt y: 1 on 08/15/2023 by Boubacar Brock M.D. at [facility] Hardware e.g. pins/screws /rods [employer]dom[employer] [id number] 02/29/2028 [id number] / / [id number] 4 Clp Hrzn Ti 6 Clp Md Monty - [id number] Implanted:Qt y: 1 on 08/15/2023 by Boubacar Brock M.D. at [facility] Hardware e.g. pins/screws /rods [employer]dom[employer] [id number] 03/13/2028 [id number] / / [id number] 1 Clp Hrzn Ti 6 Clp Md Monty - [id number] Implanted:Qt y: 1 on 08/15/2023 by Boubacar Brock M.D. at [facility] Hardware e.g. pins/screws /rods [employer]dom[employer] [id number] 03/21/2028 [id number] / / [id number] 3 Stnt Uret Inl 6fx24 - [id number] Implanted:Qt y: 1 on 08/15/2023 by Jakob De Paz M.D. at [facility] Ureteral Stent N/A: Ureter [employer]ard [id number] 11/18/2027 [id number] / / [id number] Procedures Procedure Name Priority Date/Time Associated Diagnosis [...] medications. Patient education provided by a care tractor driver teamster. Patient was ready to learn with no [...] medications. Patient education provided by a care tractor driver teamster. Patient was ready to learn withno apparent [...] Guinean catheter. [facility] The catheter was connected to a [...] into the renal pelvis. Ingrid Desai M.D. [facility] IR PROCEDURES Final Result * (ABNORMAL) Basic [...] M.D. LAB BLOOD ADD-ON Final Resu lt [facility] [address] [place] [address], [place] NPRG [facility] [address] [place] [address] * CT Abdomen Pelvis with IV Contrast [...] and right lower ribs, compatiblewith sclerotic metastases. us Sergio Raza M.D. IMG CT PROCEDURES Final Resu lt * Hepatic [...] M.D. LAB BLOOD ADD-ON Final Resul t [facility] [address] [place] [address], [facility] NPRG [facility] [address] [place] [address] * (ABNORMAL) Lipase (01/09/2024 4:29 PM CDT) Lipase, P 12(L) 13 - 60 U/L 01/09/2024 4: 46 PM CDT NPR Blood (Blood, Venous) 01/09/2024 4:29 PM CDT 01/09/2024 4:32 PM CDT Sergio Raza M.D. LAB BLOOD ADD-ON Final Resul t [facility] [address] [place] [address], [place] [address] [place] [address] * (ABNORMAL) Hemoglobin (12/07/2023 12:25 PM CDT) Only the most recent of2 resultswithin the time period is included. Hemoglobin 9.2(L) 13.2 - 16.6 g/dL 12/07/2023 12:33 PM CDT [facility] Blood (Blood, Venous) 12/07/2023 12:25 PM CDT 12/07/2023 12:27 PM CDT us Burke Strauss M.D. LAB BLOOD ADD-ON Final Resu lt Performing Organization Address City/[facility] Co de Phone Number [facility] [address] [place] [address], [place] [address] [place] [address] * Creatinine with Estimated GFR (12/07/2023 12:25 PM CDT) Creatinine 1.13 0.74 - 1.35 mg/dL 12/07/2023 12:49 PM CDT NPR Estimated GFR (eGFR) 64 >=60 mL/min/BSA 12/07/2023 12:49 PM CDT NPR Comment: Estimated GFR calculated using the 2020 CKD_EPI creatinine equation. Blood (Blood, Venous) 12/07/2023 12:25 PM CDT 12/07/2023 12:27 PM CDT us Burke Strauss M.D. LAB BLOOD ADD-ON Final Resu lt Performing Organization Address City/[facility]/ZIP Co de Phone Number [facility] [address] [place] [address], [facility] NPRG [facility] [address] [place] [address] * (ABNORMAL) CBC without Differential (11/17/2023 7:24 [...] D.O. LAB BLOOD ADD-ON Final Re sult [facility] [address] [place] [address], [facility] MK[facility] [address] [place] [address] * Glucose, POCT (11/17/2023 6:45 AM CDT) Glucose, POCT, B 107 70 - 140 mg/dL 11/17/2023 6:45 AM CDT [facility] Blood 11/17/2023 6:45 AM CDT 11/17/2023 7:03 AM CDT us Generic Rals LAB POCT ORDERABLES-MANUAL Final Result [facility] [address] [place] [address], [facility] [place] [address] [place] [address] * (ABNORMAL) CBC with Differential, Blood (11/16/2023 [...] M.D. LAB BLOOD ADD-ON Final Resul t [facility] [address] [place] [address], [facility] [place] [address] * (ABNORMAL) Comprehensive Metabolic Panel (11/16/2023 6:25 [...] M.D. LAB BLOOD ADD-ON Final Resul t [facility] [address] [place] [address], [facility] [place] [address] * Transfuse Red Blood Cells : (11/15/2023 6:35 PM CDT) us Madelyn Cesar D.O. BLOOD TRANSFUSION ORDERABLES F inal Result * Testing Location (11/15/2023 11:09 AM CDT) Testing Location [facility] DEFAULT 11/15/2023 11:47 AM CDT [facility] Blood 11/15/2023 11:0 9 AM CDT 11/15/2023 11:47 AM CDT us Sergio Raza M.D. LAB BLOOD BANK TEST ORDERABL ES Final Result [facility] [address] [place] [address], [facility] [address] [place] [address] * Coccyx-Wound Ostomy Image Exam (11/15/2023 10:40 [...] PROCE DURES Final Result Performing Organization Address City/[facility] Co de Phone Number [facility] NA * ECG 12 Lead (11/15/2023 6:47 AM CDT) Ventricular Rate ECG/Min 65 BPM MUSE IN Interval 144 ms MUSE QRSD Interval 76 ms MUSE QT Interval 430 ms MUSE QTC Interval 447 ms MUSE P [place] -7 degrees MUSE R [place] 9 degrees MUSE T Wave [place] 19 degrees MUSE 11/15/2023 6:47 AM CDT [...] to determine due to color interference Specific [place] SEE COMMENT 1.001 - 1.035 11/15/2023 8:03 [...] Result Performing Organization Address [facility] Co de Phone Number [facility] [address] [place] [address], [address] [address] * (ABNORMAL) Microscopic Automated (11/15/2023 6:25 AM [...] JUAN M Final Result Performing Organization Address City/[facility] Co de Phone Number [facility] [address] [place] [address], [address] [address] * Bacterial Culture, Aerobic + Susceptibility, Urine (11/15/2023 6:24 AM CDT) Urine Culture Urogenital microbiota, susceptibilities not performed per laboratory criteria. 11/16/2023 11:36 AM CDT [facility] Urine (Urine, Indwelling Catheter) 11/15/2023 6:24 AM CDT 11/15/2023 9:29 AM CDT Comment:Specimen Source Site : Urine us Estrella Marmolejo APRNNAddison, M.S. LAB MICROBIOLOGY - GENERAL ORDERABLES Final Result [facility] [address] [place] [address], [facility] [address] [place] [address] * CT Abdomen Pelvis without IV Contrast [...] Sample (11/14/2023 11:09 AM CDT) Pathologist [facility] Blood Bank Hold Sample HOLD Confirmed 11/14/2023 11:31 AM CDT NPRG Blood (Blood, Venous) 11/14/2023 11:09 AM CDT 11/14/2023 11:12 AM CDT us Sergio Raza M.D. LAB BLOOD BANK TEST ORDERABL ES Final Result [facility] [address] [place] [address], [facility] NPRG [place] [address] [address] [place] [address] * Type and Screen (with Reflex Antibody [...] BLOOD BANK TEST ORDERABL ES Final Result [facility] [address] [place] [address], [facility] NPRG [place] [address] [address] [place] [address] from Last 3 Months Insurance MEDICARE MEDIC Advance Directives For more information, please contact: [phone] * Full Code (Latest Code Status on [...] Answer Comments Full Code: Discussed Care Teams Fermenter Operator Relationship Specialty Start Date End Date Elsewhere, Pcp PCP - General Internal Medicine 08/13/23
--- OUTSIDE RECORDS SUMMARY | 2024-01-27 08:49 | XMS_ITS | Clinical Summary ---
Author Organization [facility] Address [address] [place] [address] Care Team Providers Care Thermostat Machine Tender Name Role Phone Cesar Mccollum Primary Care Provider [phone] Allergies No known active allergies Medications Medication [...] this topic Medical Devices Implanted Type Area Medical Technologist Chemistry Device Identifier Shelf Expiration Date Model / Serial / Lot Stent Ureteral Polaris Ultra [id number] - [id number] Implanted:Qty : 1 on 02/08/2022 by Nicola Ware MD at [facility] Stent Right: Ureter [employer] [id number] 10/08/2024 [id number] Explanted Type Area Medical Technologist Chemistry Device Identifier Shelf Expiration Date Model / Serial / Lot Stent Came Out Of The Right Ureter Explanted:Qty: 1 on 02/08/2022 by Nicola Ware MD at [facility] Right: Urethra Advance Directives For more information, please contact: [phone] Documents on File Type Date Recorded Patient Gear Shaper Set Up Operator Expl anation Advance Directives and Living Will 02/17/2022 Health Care Directiv e 05/15/2021 Healthcare Agents on File Name Relationship Healthcare Agent Relationship Communication Mindy Waterman Daughter Co-First Alterna te Health Care Agent Meera Vega Spouse Health Care Agent [id number] (Home) Favio Vega Son Co-First Altern ate Health Care Agent Tereso Vega Son Co-First Alterna te Health Care Agent Care Teams Thermostat Machine Tender Relationship Specialty Start Date End Date Cesar Mccollum [address] [place] [address] PCP - General Family Medicine 11/22/22
--- OUTSIDE RECORDS SUMMARY | 2024-01-27 08:50 | XMS_ITS | Encounter Summary ---
Author Organization [facility] Address [address] [place] [address] Care Team Providers Care Information Systems Analyst Name Role Phone Elsewhere, Pcp Primary Care Provider Unavailabl e Reason for Referral * Outpatient (Routine) - Closed Specialty Diagnoses / Procedures Referred By Leyla rosenthal Referred To Contact UrologBurke Roberts M.D. [address] [place] [phone] Phone: tel: fax: [facility] Referral ID Status Reason Start Date Expiration Date Visits Re quested Visits Authorized [id number] Closed 12/07/2023 06/07/2025 1 1 Reason for Visit * Reason Comments Follow-up Discuss jon cathet er * Outpatient (Routine) - Closed Specialty Diagnoses / Procedures Referred By Leyla rosenthal Referred To Contact Burke Lucero M.D. [address] [place] [phone] Phone: tel: fax: [facility] Region Referral ID Status Reason Start Date Expiration Date Visits Re quested Visits Authorized [id number] Closed 11/09/2023 05/10/2025 1 1 Encounter Details Date Type Department Care Team (Late st Contact Info) Description 12/07/2023 10:30 AM CDT Office Visit Department of Urology in [place], [place] [address] [place] [address] Burke Strauss M.D. [address] [place] [phone] Hematuria Gross (Primary Dx); Radiation Therapy Cystitis With Hematuria; Anemia; Retention Urinary Chronic Discharge Disposition: Home or Self Care Social History Tobacco Use Types Packs/Day Years Used Date Smoking Tobacco: Never Smokeless Tobacco: Never [facility] Farecastities Answer Date Recorded In the past 12 months has [facility] [employer], gas, oil, or water Crew threatened to shut off services in your [...] living situation today? I have a [facility] place to live 11/15/2023 Sex and Gender Information Value Date Recorded Sex Assigned at Not on file Legal Sex Male 10:48 AM CDT Gender Identity Not on file Sexual Orientation Not on file documented as of this encounter Progress Notes * Corrie, Keli Wray R.N. - 12/07/2023 10:30 AM CDT Patient here [...] sterile technique anew 22 Fr. (Ref # [id number]) Silicone 3- way catheter placed with assistance from 2nd RN, Erika Rodriguez Catheter placed and irrigated with 30 ml [...] was inadvertently cut. He currently has a22 Lithuanian silicone three-way catheter. He will return tomorrow [...] Procedure visit Department of Urology in [address] [phone] Burke Strauss M.D. [address] [place] [phone] Discharge Disposition: Home or Self Care Scheduled [...] M.D. LAB BLOOD ADD-ON Final Resu lt [facility] [address] [place] [address], [place] NPRG [place] [address] [place] [address] * (ABNORMAL) Hemoglobin (12/07/2023 12:25 PM CDT) Hemoglobin 9.2(L) 13.2 - 16.6 g/dL 12/07/2023 12:33 PM CDT NPRG Blood (Blood, Venous) 12/07/2023 12:25 PM CDT 12/07/2023 12:27 PM CDT us Burke Strauss M.D. LAB BLOOD ADD-ON Final Resu lt Performing Organization Address City/[facility]/ZIP Co de Phone Number [facility] [address] [place] [address], [place] NPRG [place] [address] [address] [place] [address] documented in this encounter Visit Diagnoses Diagnosis Hematuria Gross- Primary Radiation Therapy Cystitis With Hematuria Anemia Retention Urinary Chronic documented in this encounter Care Teams Information Systems Analyst Relationship Specialty Start Date End Date Elsewhere, Pcp PCP - General Internal Medicine 08/13/23 documented as of this encounter
--- OUTSIDE RECORDS SUMMARY | 2024-01-27 08:50 | XMS_ITS | Encounter Summary ---
Author Organization [facility] Address [address] [place] [address] Care Team Providers Care Mill Tender Warm Up Name Role Phone Elsewhere, Pcp Primary Care Provider Unavailabl e Reason for Visit * Reason Comments Nurse Visit Patient here for mon thly scheduled catheter exchange * Outpatient (Routine) - Authorized Specialty Diagnoses / Procedures Referred By Leyla t Referred To Contact Diagnoses Retention Urinary Chronic Procedures URO Urethral cath change (UCC) Burke Strauss M.D. [address] [place] [phone] Phone: tel: fax: [facility] Region Referral ID Status Reason Start Date Expiration Date V isits Requested Visits Authorized [id number] Authorized 11/09/2023 11/08/2024 15 15 Encounter Details Date Type Department Care Team (Latest Contact Info) Description 01/11/2024 9:00 AM CDT Procedure visit Department of Urology in [place], [place] [address] [place] [phone] Burke Strauss M.D. [address] [place] [phone] Keli Denton R.N. [address] [place] [phone] Retention Urinary Chronic Discharge Disposition: Home or [...] your living situation today? I have a [facility] place to live 11/15/2023 Sex and Gender Information Value Date Recorded Sex Assigned at Not on file Legal Sex Male 10:48 AM CDT Gender Identity Not on file Sexual Orientation Not on file documented as of this encounter Progress Notes * Keli Denton R.N. - 01/11/2024 9:00 AM CDT Kalen presented today to have a routine catheter change. Son, Kar present for appointment. aKlen reports having a small amount of leaking [...] proceed with catheter change utilizing a [address] Strauss. Patient and son in agreement with plan. The balloon was deflated of 30 ml and the catheter was slowly removed. After prepping the patient with betadine a new 20 yakut straight tip urethral catheter (Ref # [id number]) was inserted using sterile technique. Urine returned [...] CDT Procedure visit Department of Urology in [place], [place] [address] [place] [address] Burke Strauss M.D. [address] [place] [address] Discharge Disposition: Home or Self Care documented as of this encounter Visit Diagnoses Diagnosis Retention Urinary Chronic documented in this encounter Care Teams Mill Tender Warm Up Relationship Specialty Start Date End Date Elsewhere, Pcp PCP - General Internal Medicine 08/13/23 documented as of this encounter
--- OUTSIDE RECORDS SUMMARY | 2024-01-27 08:50 | XMS_ITS | Encounter Summary ---
Author Organization [facility] Address [address] [place] [address] Care Team Providers Care Floral Manager Name Role Phone Elsewhere, Pcp Primary Care Provider Unavailabl e Encounter Details Date Type Department Care Team (Late st Contact Info) Description 01/09/2024 Documentation Department of Urology in [place], [place] [address] [place] [address] Corin Ring M.D. [address] [place] [address] Social History Tobacco Use Types Packs/Day Years Used Date Smoking Tobacco: Never Smokeless Tobacco: Never [facility] Utilities Answer Date Recorded In the past 12 months has [facility] [employer], gas, oil, or water [employer] threatened to shut off services in your [...] [facility] live 11/15/2023 Sex [...] CDT Procedure visit Department of Urology in [place], [place] [address] [place] [address] Burke Strauss M.D. [facility] [place] [place] [address] Discharge Disposition: Home or Self Care documented as of this encounter Visit Diagnoses Diagnosis Radiation Therapy Cystitis With Hematuria- Primary documented in this encounter Care Teams Floral Manager Relationship Specialty Start Date End Date Elsewhere, Pcp PCP - General Internal Medicine 08/13/23 documented as of this encounter
--- OUTSIDE RECORDS SUMMARY | 2024-01-27 08:50 | XMS_ITS | Encounter Summary ---
Author Organization [facility] Address [address] [place] [address] Care Team Providers Care Bottom Cementer Name Role Phone Elsewhere, Pcp Primary Care Provider Unavailabl e Reason for Referral * Outpatient (Routine) - Authorized Specialty Diagnoses / Procedures Referred By Leyla rosenthal Referred To Contact Radiology Diagnoses Nephrostomy Status Post (HCC) Primary Malignant Neoplasm Of Prostate (HCC) Procedures IR Nephrostomy Tube Exchange Left Naseem Brock M.D. [address] [place] [phone] Phone: tel: fax: [facility] Region Referral ID Status Reason Start Date Expiration Date V isits Requested Visits Authorized [id number] Authorized 01/12/2024 01/11/2025 1 1 * Outpatient (Routine) - Closed Specialty Diagnoses / Procedures Referred By Leyla rosenthal Referred To Contact Radiology Diagnoses Nephrostomy Status Post (HCC) Procedures IR Nephrostomy Tube Exchange Left Ingrid Desai M.D. [address] [place] [phone] Phone: tel: fax: [facility] Referral ID Status Reason Start Date Expiration Date Visits Re quested Visits Authorized [id number] Closed 01/11/2024 01/10/2025 1 1 Reason for Visit * Outpatient (Routine) - Closed Specialty Diagnoses / Procedures Referred By Contac t Referred To Contact Radiology Diagnoses Nephrostomy Status Post (HCC) Procedures IR Nephrostomy Tube Exchange Left Ingrid Desai M.D. [address] [place] [phone] Phone: tel: fax: [facility] Referral ID Status Reason Start Date Expiration Date Visits Re quested Visits Authorized [id number] Closed 01/11/2024 01/10/2025 1 1 Encounter Details Date Type Department Care Team (Latest Contact Info) Description 01/12/2024 8:30 AM CDT - 01/12/2024 9:52 AM CDT Hospital Encounter Department of Radiology in [place], [place] [address] [place] [phone] Ingrid Desai M.D. [address] [place] [phone] Naseem Brock M.D. [address] [place] [phone] Nephrostomy Status Post (HCC) (Primary Dx); Primary Malignant Neoplasm Of Prostate (HCC) Discharge Disposition: Home or Self Care Social History Tobacco Use Types Packs/Day Years Used Date Smoking Tobacco: Never Smokeless Tobacco: Never [facility] Utilities Answer Date Recorded In the past 12 months has [facility] [employer], gas, oil, or water [employer] threatened to shut off services in your [...] your living situation today? I have a [employer] place to live 11/15/2023 [...] this encounter Medications at Time of Discharge amLODIPine (NORVASC) 10 mg tablet Take 10 [...] same time each day. Swallow it whole. iron,carbonyl-vi tamin C (VITRON-C) 65 mg iron- [...] exchange with placement of a new 10.2 Tongan 25 cm pigtail nephrostomy tube into the renal pelvis. Please see Radiology Report for full details. CONTENT PRODUCTION SPECIALIST Mars Brock M.D. SPECIMENS REMOVED None. ESTIMATED [...] CDT Procedure visit Department of Urology in [place], [place] [address] [place] [phone] Burke Strauss M.D. [address] [place] [phone] Discharge Disposition: Home or Self Care Scheduled [...] medications. Patient education provided by a care seo team lead. Patient was ready to learn with no apparent learning barriers were identified. Post-procedure care explained; patient expressed understanding of the content. PROCEDURE DETAILS: Sedation: None. Sedation time: Not applicable. Estimated Blood Loss: Less than 10 mL. TECHNIQUE: Imaging guidance for catheter exchange: Fluoroscopy with permanent image storage Access side: Left Catheter: 10.2 Tongan 25 cm pigtail nephrostomy catheter Technique: The indwelling 10.2 Tongan catheter was injected with contrast. A guidewire was inserted through the catheter but was unable to advance the catheter back into the renal pelvis. Micropuncture was used to place a new wire in tandem with the catheter into the renal pelvis. The indwelling catheter was removed and exchanged for a new 10.2 Tongan catheter. A permanent image was saved to [...] medications. Patient education provided by a care seo team lead. Patient was ready to learn withno apparent learning barriers were identified. Post-procedure careexplained; patient expressed understanding of the content. PROCEDURE DETAILS: Sedation: None. Sedation time: Not applicable. Estimated Blood Loss: Less than 10 mL. TECHNIQUE: Imaging guidance for catheter exchange: Fluoroscopy with permanent imagestorage Access side: Left Catheter: 10.2 Tongan 25 cm pigtail nephrostomy catheter Technique: The indwelling 10.2 Tongan catheter was injected with contrast.A guidewire was inserted through the catheter but was unable to advancethe catheter back into the renal pelvis. Micropuncture was used to place anew wire in tandem with the catheter into the renal pelvis. The indwelling catheter was removed andexchanged for a new 10.2 Tongan catheter. A permanent image was saved [facility]. The catheter was connected to a [...] into the renal pelvis. Ingrid Desai M.D. IM IR PROCEDURES Final Result documented in this encounter Visit Diagnoses Diagnosis [...] er: Naseem Brock M.D. - Comment: left flank)09 (Given - Provider: Naseem Brock M.D.) documented in this encounter Care Teams Bottom Cementer Relationship Specialty Start Date End Date Elsewhere, Pcp PCP - General Internal Medicine 08/13/23 documented as of this encounter
--- OUTSIDE RECORDS SUMMARY | 2024-01-27 08:50 | XMS_ITS | Encounter Summary ---
Author Organization [facility] Address [address] [place] [address] Care Team Providers Care Firearms Inspector Name Role Phone Elsewhere, Pcp Primary Care Provider Unavailabl e Reason for Referral * Outpatient (Routine) - Closed Specialty Diagnoses / Procedures Referred By Leyla t Referred To Contact Radiology Diagnoses Nephrostomy Status Post (HCC) Procedures IR Nephrostomy Tube Exchange Left Ingrid Desai M.D. [address] [place] [phone] Phone: tel: fax: [facility] Region Referral ID Status Reason Start Date Expiration Date Visits Re quested Visits Authorized [id number] Closed 01/11/2024 01/10/2025 1 1 Encounter Details Date Type Department Care Team (Late st Contact Info) Description 01/11/2024 Clinical Communication Department of Radiology in [address] [phone] Ingrid Desai M.D. [address] [place] [phone] Social History Tobacco Use Types Packs/Day Years [...] CDT Procedure visit Department of Urology in [place], [place] [address] [place] [phone] Burke Strauss M.D. [address] [place] [phone] Discharge Disposition: Home or Self Care documented as of this encounter Results * [...] medications. Patient education provided by a care crew team member. Patient was ready to learn with no apparent learning barriers were identified. Post-procedure care explained; patient expressed understanding of the content. PROCEDURE DETAILS: Sedation: None. Sedation time: Not applicable. Estimated Blood Loss: Less than 10 mL. TECHNIQUE: Imaging guidance for catheter exchange: Fluoroscopy with permanent image storage Access side: Left Catheter: 10.2 Jamaican 25 cm pigtail nephrostomy catheter Technique: The indwelling 10.2 Jamaican catheter was injected with contrast. A guidewire was inserted through the catheter but was unable to advance the catheter back into the renal pelvis. Micropuncture was used to place a new wire in tandem with the catheter into the renal pelvis. The indwelling catheter was removed and exchanged for a new 10.2 Jamaican catheter. A permanent image was saved to [...] medications. Patient education provided by a care crew team member. Patient was ready to learn withno apparent learning barriers were identified. Post-procedure careexplained; patient expressed understanding of the content. PROCEDURE DETAILS: Sedation: None. Sedation time: Not applicable. Estimated Blood Loss: Less than 10 mL. TECHNIQUE: Imaging guidance for catheter exchange: Fluoroscopy with permanent imagestorage Access side: Left Catheter: 10.2 Jamaican 25 cm pigtail nephrostomy catheter Technique: The indwelling 10.2 Jamaican catheter was injected with contrast.A guidewire was inserted through the catheter but was unable to advancethe catheter back into the renal pelvis. Micropuncture was used to place anew wire in tandem with the catheter into the renal pelvis. The indwelling catheter was removed andexchanged for a new 10.2 Jamaican catheter. A permanent image was saved toPACS. [...] nephrostomy pigtail back into the renal pelvis. us Ingrid Desai M.D. IMG IR PROCEDURES Final Result documented in this encounter Visit Diagnoses Diagnosis Nephrostomy Status Post (HCC)- Primary Nephrostomy Status Post (HCC)- Primary Primary Malignant Neoplasm Of Prostate (HCC) documented in this encounter Care Teams Firearms Inspector Relationship Specialty Start Date End Date Elsewhere, Pcp PCP - General Internal Medicine 08/13/23 documented as of this encounter
--- OUTSIDE RECORDS SUMMARY | 2024-01-27 08:50 | XMS_ITS | Encounter Summary ---
Author Organization [facility] Address [address] [place] [address] Care Team Providers Care Waste Water Operator Name Role Phone Elsewhere, Pcp Primary Care Provider Unavailabl e Reason for Visit * Reason Comments Urinary Catheter Change Pt reports leaki ng from part of three way catheter, believes he may have nicked it with a scissors. Encounter Details Date Type Department Care Team (Late st Contact Info) Description 11/30/2023 6:44 PM CDT - 11/30/2023 8:06 PM CDT Emergency [facility] [address] [place] [phone] Carmen Cherry M.D., M.P.H. [address] [place] [phone] Leakage Of Other Urinary Catheter Initial (HCC) [...] Everywhere. * Indwelling Urinary Catheter Care Adult [id number] (Canadian) documented in this encounter Medications at Time [...] morning. DO NOT TAKE UNTIL FOLLOW-UP 11/17/2023 documented as of this encounter ED [...] visit Department of Urology in [place], [place] [address] [place] [phone] Burke Strauss M.D. [address] [place] [phone] Discharge Disposition: Home or Self Care documented [...] (Due) documented in this encounter Care Teams Waste Water Operator Relationship Specialty Start Date End Date Elsewhere, Pcp PCP - General Internal Medicine 08/13/23 documented as of this encounter
--- OUTSIDE RECORDS SUMMARY | 2024-01-27 08:50 | XMS_ITS | Encounter Summary ---
Author Organization [facility] Address [address] [place] [address] Care Team Providers Care Pickup Driver Name Role Phone Elsewhere, Pcp Primary Care Provider Unavailabl e Encounter Details Date Type Department Care Team (Latest Contact Info) Description 12/07/2023 12:19 PM CDT - 12/07/2023 11:59 PM CDT Hospital Encounter Department of Laboratory Medicine in [place], [place] [address] [place] [phone] Burke Strauss M.D. [facility] [place] [phone] Anemia; Hematuria Gross; Retention Urinary Chronic Discharge [...] your living situation today? I have a [facility] place to live 11/15/2023 Sex [...] morning. DO NOT TAKE UNTIL FOLLOW-UP 11/17/2023 4 documented as of this encounter Plan of Treatment Upcoming Encounters Date Type Department Care Team (Latest Contact Info) Description 02/01/2024 10:00 AM CDT Procedure visit Department of Urology in [address] [phone] Burke Strauss M.D. [address] [place] [phone] Discharge Disposition: Home or Self Care [...] M.D. LAB BLOOD ADD-ON Final Resu lt [facility] [address] [place] [address], [place] NPRG [address] [address] * (ABNORMAL) Hemoglobin (12/07/2023 12:25 PM CDT) Hemoglobin 9.2(L) 13.2 - 16.6 g/dL 12/07/2023 12:33 PM CDT NPRG Blood (Blood, Venous) 12/07/2023 12:25 PM CDT 12/07/2023 12:27 PM CDT us Burke Strauss M.D. LAB BLOOD ADD-ON Final Resu lt Performing Organization Address City/[facility]/ZIP Co de Phone Number [facility] [address] [place] [address], [place] [address] [address] documented in this encounter Visit Diagnoses Diagnosis Anemia Hematuria Gross Retention Urinary Chronic documented in this encounter Care Teams Pickup Driver Relationship Specialty Start Date End Date Elsewhere, Pcp PCP - General Internal Medicine 08/13/23 documented as of this encounter
--- OUTSIDE RECORDS SUMMARY | 2024-01-27 08:50 | XMS_ITS | Encounter Summary ---
Author Organization [facility] Address [address] [place] [address] Care Team Providers Care Coffee Grower Name Role Phone Elsewhere, Pcp Primary Care Provider Unavailabl e Encounter Details Date Type Department Care Team (Latest Contact Info) Description 01/11/2024 10:18 AM CDT - 01/11/2024 11:59 PM CDT Hospital Encounter Department of Laboratory Medicine in [place], [place] [address] [place] [phone] Burke Strauss M.D. [facility] [place] [phone] Retention Urinary Chronic Discharge Disposition: Home or [...] a [facility] 11/15/2023 Sex [...] CDT Procedure visit Department of Urology in [place], [place] [address] [place] [phone] Burke Strauss M.D. [facility] [place] [phone] Discharge Disposition: Home or Self Care documented [...] M.D. LAB BLOOD ADD-ON Final Resu lt [facility] [address] [place] [address], [place] NPR[place] [facility] [address] [place] [address] documented in this encounter Visit Diagnoses Diagnosis Retention Urinary Chronic documented in this encounter Care Teams Coffee Grower Relationship Specialty Start Date End Date Elsewhere, Pcp PCP - General Internal Medicine 08/13/23 documented as of this encounter
--- OUTSIDE RECORDS SUMMARY | 2024-01-27 08:50 | XMS_ITS | Encounter Summary ---
Author Organization [facility] Address [address] [place] [address] Care Team Providers Care Account Development Representative Name Role Phone Elsewhere, Pcp Primary Care Provider Unavailabl e Reason for Referral * Outpatient (Routine) - Closed Specialty Diagnoses / Procedures Referred By Leyla rosenthal Referred To Contact Urology Wili Sosa M.D. [address] [place] [phone] Phone: tel: fax: [facility] Referral ID Status Reason Start Date Expiration Date Visits Re quested Visits Authorized [id number] Closed 12/14/2023 06/14/2025 1 1 Reason for Visit * Reason Comments Nurse Visit Catheter Irrigation * Outpatient (Routine) - Closed Specialty Diagnoses / Procedures Referred By Leyla rosenthal Referred To Contact Urology Diagnoses Retention Urinary Chronic Wili Sosa M.D. [address] [place] [phone] Phone: tel: fax: [facility] Referral ID Status Reason Start Date Expiration Date Visits Re quested Visits Authorized [id number] Closed 12/08/2023 06/08/2025 1 1 Encounter Details Date Type Department Care Team (Late st Contact Info) Description 12/13/2023 9:15 AM CDT Nurse Only Department of Urology in [place], [place] [address] [place] [phone] Wili Sosa M.D. [address] [place] [phone] Latonia Dumont L.P.N. Nurse Visit (Catheter Irrigation ) Discharge Disposition: Home or Self Care Social History Tobacco Use Types Packs/Day Years Used Date Smoking Tobacco: Never Smokeless Tobacco: Never [facility] Utilities Answer Date Recorded In the past 12 months has [facility] [employer], gas, oil, or water [employer] threatened to shut off services in your [...] a [facility] place to live 11/15/2023 Sex [...] CDT Procedure visit Department of Urology in [place], [place] [address] [place] [phone] Wili Sosa M.D. [address] [place] [phone] Discharge Disposition: Home or Self Care Scheduled Referrals Name Type Priority Associated Diagnoses Orde r Schedule Urology office visit (clinic) General Outpatient Referral Routine Expected: 01/11/2024 (Approximate), Expires: 03/14/2025 documented as of this encounter Visit Diagnoses Diagnosis Retention Urinary Chronic documented in this encounter Care Teams Account Development Representative Relationship Specialty Start Date End Date Elsewhere, Pcp PCP - General Internal Medicine 08/13/23 documented as of this encounter
--- OUTSIDE RECORDS SUMMARY | 2024-01-27 08:50 | XMS_ITS | Encounter Summary ---
Author Organization [facility] Address [address] [place] [address] Care Team Providers Care Associate Professor Of Biology Name Role Phone Elsewhere, Pcp Primary Care Provider Unavailabl e Reason for Referral * Outpatient (Routine) - Closed Specialty Diagnoses / Procedures Referred By Leyla rosenthal Referred To Contact Urology Diagnoses Retention Urinary Chronic Burke Strauss M.D. [address] [place] [phone] Phone: tel: fax: [facility] Referral ID Status Reason Start Date Expiration Date Visits Re quested Visits Authorized [id number] Closed 12/08/2023 06/08/2025 1 1 Reason for Visit * Reason Comments Follow-up Irrigation of cathet er * Outpatient (Routine) - Closed Specialty Diagnoses / Procedures Referred By Leyla rosenthal Referred To Contact Urology Burke Strauss M.D. [address] [place] [phone] Phone: tel: fax: [facility] Region Referral ID Status Reason Start Date Expiration Date Visits Re quested Visits Authorized [id number] Closed 12/07/2023 06/07/2025 1 1 Encounter Details Date Type Department Care Team (Latest Contact Info) Description 12/08/2023 9:30 AM CDT Office Visit Department of Urology in [place], [place] [address] [place] [phone] Burke Strauss M.D. [facility] [place] [phone] Retention Urinary Chronic (Primary Dx); Anemia; Anemia In Neoplastic Disease; Half-Way (Current) Anticoagulant Treatment Discharge Disposition: Home or Self Care Social History Tobacco Use Types Packs/Day Years Used Date Smoking Tobacco: Never Smokeless Tobacco: Never [facility] [employer] Answer Date Recorded In the past 12 months has e [employer], gas, oil, or water [employer] threatened to shut off services in your [...] 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 Seed Corn Production Manager (Current) Anticoagulant Treatment Orders Placed This Encounter [...] Procedure visit Department of Urology in [address] [phone] Burke Strauss M.D. 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
--- OUTSIDE RECORDS SUMMARY | 2024-01-27 08:50 | XMS_ITS | Encounter Summary ---
Author Organization [facility] Address [address] [place] [address] Care Team Providers Care Quality Control Scientist Name Role Phone Elsewhere, Pcp Primary Care Provider Unavailabl e Reason for Referral * Outpatient (Routine) - Closed Specialty Diagnoses / Procedures Referred By Leyla rosenthal Referred To Contact Diagnoses Retention Urinary Chronic Procedures URO Urethral cath fill / remove / voiding trial (fill / pull) Burke Strauss M.D. [address] [place] [phone] Phone: tel: fax: [facility] Referral ID Status Reason Start Date Expiration Date Visits Re quested Visits Authorized [id number] Closed 01/11/2024 01/10/2025 1 1 Reason for Visit * Reason Comments Follow-up Retention * Outpatient (Routine) - Closed Specialty Diagnoses / Procedures Referred By Leyla rosenthal Referred To Contact Urology Burke Strauss M.D. [address] [place] [phone] Phone: tel: fax: [facility] [place] [facility] Referral ID Status Reason Start Date Expiration Date Visits Re quested Visits Authorized [id number] Closed 12/14/2023 06/14/2025 1 1 Encounter Details Date Type Department Care Team (Late st Contact Info) Description 01/11/2024 10:00 AM CDT Office Visit Department of Urology in [place], [place] [address] [place] [phone] Burke Strauss M.D. [address] [place] [phone] Retention Urinary Chronic (Primary Dx); Radiation Therapy Cystitis With Hematuria; Primary Malignant Neoplasm Of Prostate (HCC); Nephrostomy Status Post (HCC) Discharge Disposition: Home or Self Care Social History Tobacco Use Types Packs/Day Years Used Date Smoking Tobacco: Never Smokeless Tobacco: Never [facility] Utilities Answer Date Recorded In the past 12 months has [facility] [employer], gas, oil, or water [employer] threatened to shut off services in your [...] f. [facility] to live 11/15/2023 Sex [...] August 2023. This ultimately required [facility] 20[facility]. He also has a [...] Of Prostate (HCC) 4. Nephrostomy Status Post ([facility]) Orders Placed This Encounter Procedures Basic Metabolic [...] Procedure visit Department of Urology in [place], [place] [address] [place] [phone] Burke Strauss M.D. [address] [place] [phone] Discharge Disposition: Home or Self [...] M.D. LAB BLOOD ADD-ON Final Resu lt [facility] [address] [place] [address], [facility] NPRG [facility] [address] [place] [address] documented in this encounter Visit Diagnoses Diagnosis Retention Urinary Chronic- Primary Radiation Therapy Cystitis With Hematuria Primary Malignant Neoplasm Of Prostate (HCC) Nephrostomy Status Post (HCC) documented in this encounter Care Teams Quality Control Scientist Relationship Specialty Start Date End Date Elsewhere, Pcp PCP - General Internal Medicine 08/13/23 documented as of this encounter
--- OUTSIDE RECORDS SUMMARY | 2024-01-27 08:50 | XMS_ITS | Encounter Summary ---
Author Organization [facility] Address [address] [place] [address] Care Team Providers Care Household Assistant Name Role Phone Elsewhere, Pcp Primary [...] CDT - 01/09/2024 6:29 PM CDT Emergency [facility] [address] [place] [phone] Sergio Raza M.D. [address] [place] [phone] Nephrostomy Status Post (HCC) (Primary Dx) Discharge [...] have a [facility] to live 11/15/2023 Sex and [...] the nephrostomy tube occurs, please present to [facility], on the recommendations of the urology team, [...] ED Course as of 01/09/242017Jan 09, 2024 1709 Basic metabolic profile shows no metabolic abnormalities [...] placed to urology to discuss CT findings [address] findings with Urology, who recommended re stabilization utilizing suture of the nephrostomy tube, and if the patient inadvertently poles the tube out any further, he should go to [facility] at which point in the nephrostomy tube would simply be replaced Final Diagnoses: as of 01/09/24 2018 Nephrostomy Status Post (HCC) - Nephrostomy tube check and stabilizing suture placement Sergio Raza M.D. 01/09/242017 documented in this encounter Plan of Treatment Upcoming Encounters Date Type Department Care Team (Latest Contact Info) Description 02/01/2024 10:00 AM CDT Procedure visit Department of Urology in [address] [phone] Burke Strauss M.D. [facility] [place] [address] Discharge Disposition: Home or Self [...] metastases. Sergio Raza M.D. IMG CT PROCEDURES Final Resu lt * (ABNORMAL) Lipase (01/09/2024 4:29 PM CDT) Lipase, P 12(L) 13 - 60 U/L 01/09/2024 4: 46 PM CDT NPRG Blood (Blood, Venous) 01/09/2024 4:29 PM CDT 01/09/2024 4:32 PM CDT Sergio Raza M.D. LAB BLOOD ADD-ON Final Resul t [facility] [address] [place] [address], [facility] NPRG [facility] [address] [place] [address] * Hepatic Function Panel (01/09/2024 4:29 PM [...] 4:29 PM CDT 01/09/2024 4:32 PM CDT us Sergio Raza M.D. LAB BLOOD ADD-ON Final Resul t [facility] [address] [place] [address], [place] NPRG [facility] [address] [place] [address] * (ABNORMAL) Basic Metabolic Panel (01/09/2024 4:29 [...] 4:29 PM CDT 01/09/2024 4:32 PM CDT us Sergio Raza M.D. LAB BLOOD ADD-ON Final Resul t [facility] [address] [place] [address], [facility] NPRG [facility] [address] [place] [address] documented in this encounter Visit Diagnoses Diagnosis [...] oral then dilute in 900 mL water 165 (Given - Provid er: Skyler Lopez(R)(CT), R.T.(R)) [...] 1613 documented in this encounter Care Teams Household Assistant Relationship Specialty Start Date End Date Elsewhere, Pcp PCP - General Internal Medicine 08/13/23 documented as of this encounter
--- OUTSIDE RECORDS SUMMARY | 2024-01-27 08:50 | XMS_ITS | Encounter Summary ---
Author Organization [facility] Address [address] [place] [address] Care Team Providers Care Finishing Range Operator Name Role Phone Elsewhere, Pcp Primary Care Provider Unavailabl e Reason for Visit * Reason Onset Date Comments Communication 01/16/2024 Follow up questi ons Encounter Details Date Type Department Care Team (Latest Contact Info) Description 01/16/2024 Clinical Communication Department of Urology in [place], [place] [address] [place] [phone] Burke Strauss M.D. [facility]5 [place] [phone] Communication (Follow up questions) Social History Tobacco [...] CDT Procedure visit Department of Urology in [place], [place] [address] [place] [phone] Burke Strauss M.D. [facility] [place] [phone] Discharge Disposition: Home or Self Care documented as of this encounter Visit Diagnoses Not on filedocumented in this encounter Care Teams Finishing Range Operator Relationship Specialty Start Date End Date Elsewhere, Pcp PCP - General Internal Medicine 08/13/23 documented as of this encounter
--- OUTSIDE RECORDS SUMMARY | 2024-01-27 08:51 | XMS_ITS | Encounter Summary ---
Author Organization [facility] Address [address] [place] [address] Care Team Providers Care Balling Head Tender Name Role Phone Elsewhere, Pcp Primary Care Provider Unavailabl e Reason for Referral * Outpatient (Routine) - Closed Specialty Diagnoses / Procedures Referred By Leyla rosenthal Referred To Contact Urology Burke Strauss M.D. [address] [place] [phone] Phone: tel: fax: [facility] Referral ID Status Reason Start Date Expiration Date Visits Re quested Visits Authorized [id number] Closed 11/09/2023 05/10/2025 1 1 * Outpatient (Routine) - Authorized Specialty Diagnoses / Procedures Referred By Leyla rosenthal Referred To Contact Diagnoses Retention Urinary Chronic Procedures URO Urethral cath change (UCC) Burke Strauss M.D. [address] [place] [phone] Phone: tel: fax: [facility] Region Referral ID Status Reason Start Date Expiration Date V isits Requested Visits Authorized [id number] Authorized 11/09/2023 11/08/2024 15 15 Reason for Visit * Reason Comments Consult Discuss catheter thomas nges * Appointment Request (Routine) - Closed Specialty Diagnoses / Procedures Referred By Leyla t Referred To Contact Urology Referral ID Status Reason Start Date Expiration Date Visits Re quested Visits Authorized [id number] Closed 10/27/2023 10/26/2024 1 1 Encounter Details Date Type Department Care Team (Late st Contact Info) Description 11/09/2023 11:00 AM CDT Office Visit Department of Urology in [place], [place] [address] [place] [phone] Burke Strauss M.D. [address] [place] [phone] Primary Malignant Neoplasm Of Prostate (HCC) (Primary Dx); Retention Urinary Chronic; Hematuria Gross Discharge Disposition: Home or Self Care Social History Tobacco Use Types Packs/Day Years Used Date Smoking Tobacco: Never Smokeless Tobacco: Never [facility] Material Wrldities Answer Date Recorded In the past 12 months has [facility] [employer], gas, oil, or water [employer] threatened to shut off services in your [...] the past few days. Original plan from [place] was to exchange his left nephrostomy tube [...] Metastatic prostate cancer is being managed by [facility], Dr. Mireya Tan. Release of [...] an antegrade nephrogram through Interventional Radiology in [place] prior to nephrostomy tube removal. documented in this encounter Plan of Treatment Upcoming Encounters Date Type Department Care Team (Latest Contact Info) Description 02/01/2024 10:00 AM CDT Procedure visit Department of Urology in [place], [place] [address] [place] [phone] Burke Strauss M.D. [address] [place] [phone] Discharge Disposition: Home or Self Care Scheduled [...] Gross documented in this encounter Care Teams Balling Head Tender Relationship Specialty Start Date End Date Elsewhere, Pcp PCP - General Internal Medicine 08/13/23 documented as of this encounter
--- OUTSIDE RECORDS SUMMARY | 2024-01-27 08:51 | XMS_ITS | Encounter Summary ---
Author Organization [facility] Address [address] [place] [address] Care Team Providers Care Appraiser Real Estate Name Role Phone Elsewhere, Pcp Primary Care Provider Unavailabl e Reason for Visit * Reason Onset Date Comments Oncology records request 11/10/2023 Encounter Details Date Type Department Care Team (Latest Contact Info) Description 11/10/2023 Clinical Communication Department of Urology in [place], [place] [address] [place] [phone] Burke Strauss M.D. [address] [place] [address] [phone] Oncology records request Social History Tobacco Use [...] a [facility] place to live 11/15/2023 Sex [...] planned. * Telephone Encounter - Gisela Lloyd R.MParvin - 11/10/2023 2:15 PM CDT Release of Information was filled out and faxed to [facility], Dr. Mireya Tan clinic per Dr. Strauss. Will wait for these to come through and notify Dr. Strauss for his review. [facility] documented in this encounter Plan of Treatment Upcoming Encounters Date Type Department Care Team (Latest Contact Info) Description 02/01/2024 10:00 AM CDT Procedure visit Department of Urology in [address] [phone] Burke Strauss M.D. [facility] [place] [phone] Discharge Disposition: Home or Self Care documented as of this encounter Visit Diagnoses Not on filedocumented in this encounter Care Teams Appraiser Real Estate Relationship Specialty Start Date End Date Elsewhere, Pcp PCP - General Internal Medicine 08/13/23 documented as of this encounter
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
--- OUTSIDE RECORDS SUMMARY | 2024-01-27 08:51 | XMS_ITS | Encounter Summary ---
Author Organization [facility] Address [address] [place] [address] Care Team Providers Care Ranger Aide Name Role Phone Elsewhere, Pcp Primary Care Provider Unavailabl e Encounter Details Date Type Department Care Team (Late st Contact Info) Description 10/27/2023 Clinical Communication Department of Urology in [place], [place] [address] [place] [phone] Burke Strauss M.D. [address] [place] [phone] Social History Tobacco Use Types Packs/Day Years Used Date Smoking Tobacco: Never Smokeless Tobacco: Never [facility] Utilities Answer Date Recorded In the past 12 months has e electric, gas, oil, or water [employer] threatened to shut off services in your [...] Telephone Encounter - Gisela Lloyd, R.M.A. - 10/28/2023 1:21 PM CDT Patient is [...] 2:15 PM CDT Patient follows urology in [place] but would like to transfer his care to [place] as it is closer to home. It looks like for Hematuria. Is this patient ok to see you? He has a catheter in and will need cath changes going forward. documented in this encounter Plan of Treatment Upcoming Encounters Date Type Department Care Team (Latest Contact Info) Description 02/01/2024 10:00 AM CDT Procedure visit Department of Urology in [place], [place] [address] [place] [phone] Burke Strauss M.D. [address] [place] [phone] Discharge Disposition: Home or Self Care documented as of this encounter Visit Diagnoses Not on filedocumented in this encounter Care Teams Ranger Aide Relationship Specialty Start Date End Date Elsewhere, Pcp PCP - General Internal Medicine 08/13/23 documented as of this encounter
--- OUTSIDE RECORDS SUMMARY | 2024-01-27 08:51 | XMS_ITS | Encounter Summary ---
Author Organization [facility] Address [address] [place] [address] Care Team Providers Care Nutrition Services Worker Name Role Phone Elsewhere, Pcp Primary Care Provider Unavailabl e Encounter Details Date Type Department Care Team (Late st Contact Info) Description 11/09/2023 Clinical Communication Department of Urology in [place], [place] [address] [place] [phone] Burke Strauss M.D. [address] [place] [phone] Social History Tobacco Use Types Packs/Day Years [...] a [facility] place [facility] 11/15/2023 Sex [...] CDT Procedure visit Department of Urology in [place], [place] [address] [place] [phone] Burke Strauss M.D. [address] [place] [phone] Discharge Disposition: Home or Self Care documented as of this encounter Visit Diagnoses Not on filedocumented in this encounter Care Teams Nutrition Services Worker Relationship Specialty Start Date End Date Elsewhere, Pcp PCP - General Internal Medicine 08/13/23 documented as of this encounter
--- OUTSIDE RECORDS SUMMARY | 2024-01-27 08:51 | XMS_ITS | Clinical Summary ---
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 YDB=360.87 Bladder mass 02/29/2020 04/30/2020 Hematuria 02/29/2020 03/05/2020 Acute deep vein thrombosis (DVT) 02/29/2020 11/20/2020 S/P coronary angioplasty 11/03/2016 Chest pain 09/15/2016 03/05/2020 Elevated prostate specific antigen (PSA) 10/06/2010 03/05/2020 Hip arthritis 10/06/2010 03/05/2020 Colon polyp 07/15/2010 PATRICE (acute kidney injury) Obstructive uropathy 020 Encounters Date Type Department Care Team Description 01/23/2024 1:00 PM CDT Home Care Visit [address] [address] Doreen Hussein, RN SN - OASIS DISCHARGE 01/16/2024 1:30 PM CDT Home Care Visit [address] [address] Doreen Hussein, JAMEL SN - HOME VISIT 01/09/2024 1:30 PM CDT Home Care Visit [address] [address] Doreen Hussein RN SN - HOME VISIT 12/26/2023 11:30 AM CDT Home Care Visit [address] [address] Doreen Hussein RN SN - HOME VISIT 12/23/2023 11:00 AM CDT Home Care Visit [address] [address] Raffy Carter, PT PT - DISCIPLINE DISCHARGE 12/19/2023 10:00 AM CDT Home Care Visit [address] [address] Doreen Hussein RN SN - HOME VISIT 12/16/2023 11:00 AM CDT Home Care Visit [address] [address] Raffy Carter, PT PT - HOME VISIT 12/13/2023 Orders Only [facility] Scanner 1 scan: (1-Ord) [facility], XR SACRUM COCCYX MIN 2V, 12/13/2023 12/07/2023 Telephone [facility] [address] [place] [address] Cesar Mccollum MD Follow Up 12/05/2023 Home Care Visit [address] [address] Doreen Hussein, JAMEL SN - HOME VISIT 12/02/2023 10:30 AM CDT Home Care Visit [address] [address] Raffy Carter, PT PT - REASSESSMENT 12/02/2023 Plan of Care Documentation [address] [address] 11/30/2023 4:00 PM CDT Home Care Visit [address] [address] Doreen Hussein, RN SN - OASIS RECERTIFICATION 11/30/2023 10:30 AM CDT Office Visit [facility] [address] [place] [address] Cesar Mccollum MD Follow Up; Medication Management (Discuss plavix - not currently taking it) 11/30/2023 Travel 11/25/2023 11:00 AM CDT Home Care Visit [address] [address] Raffy Carter, PT PT - INITIAL ASSESSMENT 11/23/2023 8:00 AM CDT Home Care Visit [address] [address] Brittanie Prieto RN SN - HOME VISIT 11/21/2023 3:30 PM CDT Home Care Visit [address] [address] Rigo Heart, JAMEL SN - OASIS RESUMPTION OF CARE 11/18/2023 Home Care Visit [address] [address] Rufina Cosby RN CARE COORDINATION 11/14/2023 Home Care Visit [address] [address] Raffy Carter, PT PT - OASIS TRANSFER 11/11/2023 10:30 AM CDT Home Care Visit [address] [address] Raffy Carter, PT PT - HOME VISIT 11/09/2023 9:00 AM CDT Home Care Visit [address] [address] Barbara Fuentes, JAMEL SN - HOME VISIT 11/07/2023 Home Care Visit [address] [address] Rufina Cosby RN CARE COORDINATION 11/04/2023 10:30 AM CDT Home Care Visit [address] [address] Raffy Carter, PT PT - HOME VISIT 10/31/2023 11:00 AM CDT Home Care Visit [address] [address] Doreen Hussein RN SN - HOME VISIT 10/28/2023 10:30 AM CDT Home Care Visit [address] [address] Raffy Carter, PT PT - HOME VISIT from Last 3 Months Immunizations Name Administration [...] Reading Time Taken Comments Blood Pressure 120/65 01/23/2024 1:20 PM CDT Pulse 73 01/23/2024 1:20 PM CDT Temperature 36.7 ??C (98.1 ??F) 01/23/2024 1:20 PM CD T Respiratory Rate 15 12/23/2023 11:10 AM CDT Oxygen Saturation 97% 01/23/2024 1:20 PM CDT Inhaled Oxygen Concentration - - [...] 65+ Completed Medical Devices Implanted Type Area Records Management Manager Device Identifier Shelf Expiration Date Model / Serial / Lot Stent Uret [id number] Contour - [id number] Implanted:Qty: 1 on 07/18/2023 by Nicola Ware MD at [facility] Right: [employer] [facility] 02/27/2026 [id number] / / [id number] Procedures Procedure Name Priority Date/Time Associated Diagnosis Comments SCAN-RADIOLOGY REPORT 12/13/2023 12:00 AM CDT HEMOGLOBIN Routine 11/30/2023 11:45 AM CDT Chronic blood loss anemia from Last 3 Months Results * SCAN-RADIOLOGY REPORT (12/13/2023 12:00 AM CDT) Anatomical Region Laterality Modality Other Scanner OTHER * (ABNORMAL) HEMOGLOBIN (11/30/2023 11:45 AM CDT) HEMOGLOBIN 10.4(L) 13.5 - 17.5 g/dL 11/30/2023 11:50 AM CDT [facility] MCV 92 80 - 100 fL 11/30/2023 11:50 AM CDT [facility] Blood BLOOD SPECIMEN / Unknown Venipuncture / Unknown 11/30/2023 11:45 AM CDT 11/30/2023 11:45 AM CDT Cesar Mccollum MD HEMATOLOGY [facility] [address] [place] [address], [place] [phone] from Last 3 Months Advance Directives Documents on File Type Date Recorded Patient Truck Bracer Expl anation Healthcare Directive 05/15/2021 022 * [...] Code Status Discussion: Reviewed Preferences Care Teams Motorboat Mechanic Inboard Relationship Specialty Start Date End Date Cesar Mccollum MD [address] [place] [address] PCP - General Family Practice 03/04/20 Nicola Ware MD [address] [place] [address] Surgery - Urology 03/13/20 Mireya Tan MD [address] [place] [address] Hematology - Pathology 03/13/20 [facility] [place] [id number] [place] [address] 09/29/23
--- OUTSIDE RECORDS SUMMARY | 2024-01-27 08:51 | XMS_ITS | Encounter Summary ---
Author Organization [facility] Address [address] [place] [address] Care Team Providers Care Child Care Teacher Name Role Phone Elsewhere, Pcp Primary [...] a [facility] place to live 08/13/2023 Sex and Gender Information Value Date Recorded Sex Assigned at Not on file Legal Sex Male 10:48 AM CDT Gender Identity Not on file Sexual Orientation Not on file documented as of this encounter Plan of Treatment Upcoming Encounters Date Type Department Care Team (Latest Contact Info) Description 02/01/2024 10:00 AM CDT Procedure visit Department of Urology in [place], [place] [address] [place] [address] Burke Strauss M.D. 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
--- OUTSIDE RECORDS SUMMARY | 2024-01-27 08:51 | XMS_ITS | Encounter Summary ---
Author Organization [facility] Address [address] [place] [address] Care Team Providers Care Behavioral Technician Name Role Phone Elsewhere, Pcp Primary Care Provider Unavailabl e Reason for Referral * Outpatient (Routine) - Authorized Specialty Diagnoses / Procedures Referred By Contac t Referred To Contact Diagnoses Hematuria Gabe Neal M.D. [address] [place] [address] Phone: tel: fax: Referral ID Status Reason Start Date Expiration Date V isits Requested Visits Authorized [id number] Authorized 11/17/2023 05/18/2025 1 1 Encounter Details Date Type Department Care Team (Late st Contact Info) Description 11/14/2023 11:38 PM CDT - 11/17/2023 3:55 PM CDT Hospital Encounter [facility], Fifth Floor [address] [place] [address] Eliceo Guerrier M.D., Ph.D. [address] [facility] [place] [phone] Sylvie Álvarez M.B.B.S., M.D. [address] [place] [phone] Rashawn Vences M.D. [address] [place] [phone] Gabe Buckley M.D. [address] [place] [phone] Smith Peter (Primary Dx) Discharge Disposition: Home-Health Care Svc Social History Tobacco Use Types Packs/Day Years Used Date Smoking Tobacco: Never Smokeless Tobacco: Never [facility] Utilities Answer Date Recorded In the past 12 months has [facility] [employer], gas, oil, or water [employer] threatened to shut off services in your [...] have [facility] live 11/15/2023 Sex and [...] in this encounter Discharge Summaries * Candelaria Rivas, DJonahO. - 11/17/2023 3:09 PM CDT DISCHARGE SUMMARY BRIEF OVERVIEW Discharge Hospital: Hospital: [facility] Discharge Provider: Gabe Buckley M.D. Primary Care Providers: Dr. 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 Cesar Mccollum to discuss restarting OUTPATIENT FOLLOW UP Scheduled Appointments 12/07/2023 10:15 AM [facility] MULTI SPECIALTY NURSE 01 NPNC; [...] filter and chronic pressure wounds presented to [place] 11/14/23 gross hematuria including around his indwelling [...] with Dr. Gabe Rivas DO. PGY-1 [facility] [place] Cosigned by Gabe Buckley M.D. at 11/17/2023 6:37 PM CDT Associated attestation - Gabe Buckley M.D. - [...] 08/26/2023 4 documented as of this encounter Progress Notes * Chary Romero L.I.C.SHilario. - 11/17/2023 2:18 PM CDT SUBJECTIVE Patient is a 83 y.o. male who was admitted to [facility] 11/14/2023 due to Hematuria Gross [R31.0]. Patient was accompanied by son, Kar. This technical writer finalized arrangements for resumption of home health care services. 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 INTERVENTION This technical writer sent a service reconnection, including resumption of care order, to resumption of home health care services to [facility] as the fax number matches the fax number provided by intake earlier in the week. PLAN Patient will discharge home today with family and resumption of home health care services. * Nereida Bolton RDN, LD - 11/17/2023 12:40 PM CDT Clinical [...] Muscle Mass: Normal Fluid Accumulation: Absent Reduced Curbing Stonecutter Strength: Not applicable This is in the [...] Monitoring: Meals/Supplement Intake, Nausea/Vomiting/Diarrhea * Chary Romero, L.I.C.S.W. - 11/16/2023 10:53 AM CDT SUBJECTIVE Patient is a 83 y.o. male who was admitted to [facility] 11/14/2023 due to Hematuria Gross [R31.0]. Patient was accompanied by daughter (Mindy) and son (Kar). This technical writer continues to assist in home health care reconnection. 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 INTERVENTION Patient's daughter, Mindy, provided this technical writer with contact information for Doreen Javier, nurse child day care teacher for [employer]; [phone]. This technical writer left Doreen a voicemail, requesting a [...] monitoring. The patient's last stent was in 2017, so should reevaluate if Plavix is necessary. Weigh risk or bleeding vs clot. -transfuse 1 unit of packed red blood cells if hemoglobin decreases below 8, CAD history -monitor for CBC daily -monitor for bleeding around catheter or in medina bag -monitor CMP for kidney function -continue TEST RACK OPERATOR tamsulosin -continue TEST RACK OPERATOR enzalutamide -urine culture, per urology # Coronary artery disease without angina pectoris, status post 6 stents # History of DVTs, status post IVC filter # Hyperlipidemia Is on both Plavix and Xarelto at home. -start Xarelto 11/16/2023 so response can be monitored while hospitalized -continue TEST RACK OPERATOR amlodipine -continue TEST RACK OPERATOR rosuvastatin -continue TEST RACK OPERATOR metoprolol # Chronic Pressure Wound, Coccyx -continue wound care -offloading as much as possible Non-severe (moderate) Malnutrition (11/15/23) The patient meets the ASPEN Criteria of malnutrition based on: Energy Intake: Less than 75% of estimated energy requirement for greater than or equal to 1 month Interpretation of Weight Loss: 7.5% 3 months Body Fat: Normal Muscle Mass: Normal Fluid Accumulation: Absent Reduced Curbing Stonecutter Strength: Not applicable This is in the [...] Candelaria Rivas DO. PGY-1 [facility] Medicine Residency [place] Cosigned by Gabe Buckley M.D. at 11/16/2023 6:25 PM CDT Associated attestation - Gabe Buckley M.D. - 11/16/2023 6:25 PM CDT I saw and evaluated the patient, participating in the henderson portions of the service. I reviewed the resident/fellow???s note. I agree with the resident/fellow???s findings and plan. 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 - [...] recommendations -monitor CMP for kidney function -continue TEST RACK OPERATOR tamsulosin -continue TEST RACK OPERATOR enzalutamide -urine culture, per urology # Coronary artery disease without angina pectoris, status post 6 stents # History of DVTs, status post IVC filter # Hyperlipidemia Is on both Plavix and Xarelto at home. Urology recommendations on restarting blood thinners. -may consider restarting one or both on 11/16/2023 so response can be monitored while hospitalized -continue TEST RACK OPERATOR amlodipine -continue TEST RACK OPERATOR rosuvastatin -continue TEST RACK OPERATOR metoprolol # Chronic Pressure Wound, Coccyx -continue wound care -offloading as much as possible Non-severe (moderate) Malnutrition (11/15/23) The patient meets the ASPEN Criteria of malnutrition based on: Energy Intake: Less than 75% of estimated energy requirement for greater than or equal to 1 month Interpretation of Weight Loss: 7.5% 3 months Body Fat: Normal Muscle Mass: Normal Fluid Accumulation: Absent Reduced Curbing Stonecutter Strength: Not applicable This is in the [...] Rashawn Vences M.D. Bethany Reyhaus, DO. PGY-1 [facility] Residency [place] Cosigned by Rashawn Vences M.D. at 11/15/2023 5:57 PM CDT Associated attestation - Rashawn Vences M.D. - [...] other issues. He showed up in the [facility] room yesterday with complaints of a [...] and visits for hematuria. Patient presented at [place] yesterday because of bleeding around his Medina [...] vomiting, no abdominal pain. Patient presented at [place] where urology was contacted, manual bladder irrigation [...] anemia, hemoglobin now 8.2. Patient presented to [place] ED because of bleeding around his Medina catheter. At [place], patient had manual bladder irrigation with normal [...] in this encounter Consult Notes * Yessy Khan RDN, LD - 11/15/2023 12:22 PM CDTAssociated Order(s): Dietitian consult (hospital); Dietitian Consult (Hospital) Dietitian Consult (Hospital) Referring Provider: Best Practice Advisory Instant O Dietitian consult ([facility]) Referring Provider: Best Practice Advisory Instant O Clinical Note Types: Initial Assessment/Consult [...] had lost 28lbs during his stay in [place] as he was NPO for12 days then [...] Muscle Mass: Normal Fluid Accumulation: Absent Reduced Curbing Stonecutter Strength: Not applicable This is in the [...] 84.1 kg BMI (Calculated): 26.6 kg/m?? % Kamuela Body Weight: 111 % IBW Adjusted Body [...] Orders (From admission, onward) Start Ordered 11/15/23 112 Adult Diet Regular; 2,000 mg Na; Cardiovascular [...] assessment, Discharge Planning, Other (comment) Primary Language: Swedish Physician Executive Services Used: No Sexuality/Pronoun: / Person(s) present [...] Neoplastic Disease #4 Atherosclerotic Heart Disease Of [place] Coronary Artery Without Angina Pectoris #5 Deficiency Iron #6 Hyperlipidemia #7 Hypertension Essential Primary #8 Mcfp Current Use Of Other Agents Affecting Estrogen Receptors And Estrogen Levels #9 Radiation Therapy Proctitis #10 Inferior Vena Cava Filter #11 Mcfp (Current) Anticoagulant Treatment Social History Marital Status: Family / Household: Lives with and son, Gavin. Has another son (Kar) and a daughter (Mindy). Support System: spouse and children Spirituality/Sikhism/Cultural Factors: None History: No Highest Level of [...] Cooperative, Oriented Communication: Talks, Understands speaking, Understands Swedish Shopping: Appropriate to age/development Medication Management: Independent Housekeeping: Appropriate to age/development Meal Prep: Appropriate to age/development Assistive Devices: Eyeglasses, Hearing aid(s) Agency Name[facility] Provided: snf once weekly for wound care, PT, social work, Makenzie child day care teacher Transportation: Support from family Baseline Services/Resources Primary care clinic and provider: ELSEWHERE, PCP Anticipated Needs Functional Status: Tasks appropriate to patient's age/development, Transportation use (drive car, use taxi/bus) Assistive Devices: Eyeglasses, Hearing aid(s) Services/Resources: Home health Agency Name: [facility] Provided: snf once weekly for wound care, PT, social work, DarwinRN child day care teacher Does the patient need discharge transport arranged?: No Anticipated Discharge Destination: Home-Health Care Svc OBJECTIVE Substance Abuse no symptoms Mental Health Mental Health History: Patient reports no mental health history Patient reports no current concerns Mental Health Treatment History No history of Psychiatric Treatment noted Suicide Risk and Safety Risk Assessment: C-SSRS Short Version: Hope Suicide Severity Rating Scale (Do this one [...] a wound clinic the other day. This technical writer spoke to intake with [facility] however the only information provided is that patient is served by the health system location and receives half-way, physical therapy, and social work and the fax number for discharge paperwork was provided. Interventions Psychosocial assessment completed. Provided supportive services. Provided education regarding the role of social work. Plan It is anticipated patient will return home with family and resume services through [facility]. Mark GardinerSHilario. 11/15/2023 * Jerri Toledo R.N., C.W.C.N., [facility] - 11/15/2023 10:54 AM CDTAssociated Order(s): IP [...] and visits for hematuria. Patient presented at [place] yesterday because of bleeding around his Medina [...] vomiting, no abdominal pain. Patient presented at [place] where urology was contacted, manual bladder irrigation with normal saline was performed, and patient was started on CBI. Patient transferred to [place] for further management. WOUND ASSESSMENT: Wound Type: Pressure Injury [facility] Pressure Injury Staging: Stage 3 Wound Location: Coccyx Wound Orientation: Mid Wound Tunnel/Induration: Length 1 cm, Width 0.5 cm, and Depth 0.3 cm. Wound Bed Tissue: Red and Granulation tissue 100% Leslee-Wound Skin: Blanchable erythema, Maceration, and Guerra PLAN: COCCYX: DAILY 1. Cleanse wound with [...] limit sliding down in chair. Please contact [facility] RNs if you have any question or concerns regarding wound care. Jerri Toledo R.N., NIKOSON at [phone] Starla Méndez R.N., CWCN at [phone] * Zachery Tanner APRN, C.N.P., M.S. - [...] follows with Medical Oncology Dr. Tan in [place], [place]. Right hydronephrosis and right atrophic kidney [...] 08/30. Currently undergoing outpatient hyperbaric O2 in [facility]. Mr. Vega currently admitted to [facility] in the setting of recurrent gross [...] in comparison to historical imaging. Ultimately [address] catheter was placed and patient was hand irrigated and initiated on CBI.Patient was transferred to [facility] for ongoing management. Urinalysis 11/15/2023 with [...] undergoing outpatient HBO (hyperbaric oxygenation therapy) in [facility]. Recommend to continue HBO in [...] hematuria. Outpatient appointment scheduled on 12/07/2023 in [place] with Urology. Could consider discussion about catheter removal/formal voiding trial in the outpatient setting as to limit catheter irritation/potential infection risk contributing to hematuria. Significant pyuria on urinalysis in the setting of his gross hematuria would recommend urine culture. 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 Tan in [place], [place]. Per subjective report today undetectable PSA. [...] discussed with Dr. Valdez. Zachery Tanner APRN FRAME TENDER Cosigned by Manav Valdez M.D. at 11/15/2023 4:26 PM CDT Associated attestation - Manav Valdez M.D. - [...] belongings sent home with patient. * Nahed Dozier, RJonahN. - 11/17/2023 7:05 AM CDT INPATIENT SHIFT [...] CARE: Potential discharge tomorrow * Mariajose Berry RJonahNJonah - 11/16/2023 5:27 AM CDT INPATIENT SHIFT [...] Summary: Pt is a direct admit from [place] ED. He has chronic indwelling catheter, with prostate cancer history. He noticed urine was bloody red. While being seen in [place], 3 waycatheter was inserted and CBI started. [...] filter and chronic pressure wounds presented to [place] 11/14/23 gross hematuria including around his indwelling [...] CDT Procedure visit Department of Urology in [place], [place] [address] [place] [phone] Burke Strauss M.D. [address] [place] [phone] Discharge Disposition: Home or Self Care Pending Results Name Type Priority Associated Diagnoses Date /Time Prepare Red Blood Cells, 1 Units Blood Bank Routine 11/14/2023 11:09 AM CDT Scheduled Referrals Name Type Priority Associated Diagnoses Orde r Schedule Non-[facility] referral Outpatient Referral Routine Hematuria Gross Ordered: [...] D.O. LAB BLOOD ADD-ON Final Re sult [facility] [address] [place] [address], [facility] MKTO [facility] in [place] [address] [place] [address] * (ABNORMAL) Basic Metabolic Panel (11/17/2023 7:24 [...] D.O. LAB BLOOD ADD-ON Final Re sult [facility] [place] [address], [facility] [place] in [place] [address] [place] [phone] * Glucose, POCT (11/17/2023 6:45 AM CDT) Glucose, POCT, B 107 70 - 140 mg/dL 11/17/2023 6:45 AM CDT MKTO Blood 11/17/2023 6:45 AM CDT 11/17/2023 7:03 AM CDT us Generic Rals LAB POCT ORDERABLES-MANUAL Final Result Performing Organization Address [facility]/ZIP Co de Phone Number [facility] [address] [place] [address], [address] [address] * (ABNORMAL) Hemoglobin (11/16/2023 4:43 PM CDT) Hemoglobin 9.2(L) 13.2 - 16.6 g/dL 11/16/2023 5:13 PM CDT MKTO Blood (Blood, Venous) 11/16/2023 4:43 PM CDT 11/16/2023 5:10 PM CDT Madelyn Cesar D.O. LAB BLOOD ADD-ON Final Result Performing Organization Address City/[facility]/ZIP Co de Phone Number [facility] [address] [place] [address], [address] [address] * (ABNORMAL) Comprehensive Metabolic Panel (11/16/2023 6:25 [...] M.D. LAB BLOOD ADD-ON Final Resul t [facility] [address] [place] [address], [facility] in [place] [address] [place] [phone] * (ABNORMAL) CBC with Differential, Blood (11/16/2023 [...] M.D. LAB BLOOD ADD-ON Final Resul t [facility] [address] [place] [address], [facility] MKTO [facility] in [place] [address] [place] [address] * Transfuse Red Blood Cells : (11/15/2023 6:35 PM CDT) [facility] D.O. BLOOD TRANSFUSION ORDERABLES F inal Result * Transfuse Red Blood Cells : , 1 Units (11/15/2023 6:35 PM CDT) [facility] D.O. BLOOD TRANSFUSION ORDERABLES F inal Result * (ABNORMAL) Comprehensive Metabolic Panel (11/15/2023 7:31 AM CDT) [facility] Signature Potassium, P 4.2 3.6 - 5.2 mmol/L [...] 7:31 AM CDT 11/15/2023 7:53 AM CDT us Sylvie Wright M.D. LAB BLOOD ADD-O N Final Result [facility] [address] [place] [address], [facility] MKTO [facility] in [place] [address] [place] [address] * (ABNORMAL) CBC with Differential, Blood (11/15/2023 [...] 7:53 AM CDT Sylvie Wright M.D. LAB BLOOD ADD-O N Final Result [facility] [address] [place] [address], [facility] MKTO [facility] in [place] [address] [place] [address] * ECG 12 Lead (11/15/2023 6:47 AM CDT) Ventricular Rate ECG/Min 65 BPM MUSE [place] Interval 144 ms MUSE QRSD Interval 76 ms MUSE QT Interval 430 ms MUSE QTC Interval 447 ms MUSE P [place] -7 degrees MUSE R [place] 9 degrees MUSE T Wave [place] 19 degrees MUSE 11/15/2023 6:47 AM CDT [...] by 80 bpm Reviewed by BETTY Powers us Sylvie Wright M.D. ECG ORDERABLES Final Result Performing Organization Address City/[facility]/ZIP Co de Phone Number MUSE NA [...] JUAN M Final Result Performing Organization Address City/[facility]/ZIP Co de Phone Number [facility] [address] [place] [phone], [facility] MKTO [facility] in [address] [address] * (ABNORMAL) Urinalysis with Microscopic if Indicated [...] to determine due to color interference Specific [place] SEE COMMENT 1.001 - 1.035 11/15/2023 8:03 AM CDT MKTO Comment:Unable to determine due to color interference Urobilinogen SEE COMMENT 0.2 - 1.0 mg/dL 11/15/2023 8:03 AM CDT MKTO Comment:Unable to determine due to color interference Urine (Urine, Midstream) 11/15/2023 6:25 AM CDT 11/15/2023 6:34 AM CDT us Sylvie Wright M.D. LAB URINE ORDER JUAN M Final Result [facility] [address] [place] [address], [facility] [place] in [place] [address] [place] [phone] * Bacterial Culture, Aerobic + Susceptibility, Urine (11/15/2023 6:24 AM CDT) Urine Culture Urogenital microbiota, susceptibilities not performed per laboratory criteria. 11/16/2023 11:36 AM CDT MKTO Urine (Urine, Indwelling Catheter) 11/15/2023 6:24 AM CDT 11/15/2023 9:29 AM CDT Comment:Specimen Source Site : Urine us Zachery Tanner APRN C.N.P., M.S. LAB MICROBIOLOGY - GENERAL ORDERABLES Final Result [facility] [address] [place] [address], [facility] MKTO [facility] in [place] [address] [place] [address] documented in this encounter Visit Diagnoses Diagnosis Hematuria Gross- Primary Hematuria Gross Primary Malignant Neoplasm Of Prostate (HCC) Anemia In Neoplastic Disease Press Feeder Current Use Of Other Agents Affecting Estrogen Receptors And Estrogen Levels Hypertension Essential Primary Hyperlipidemia Deficiency Iron Radiation Therapy Proctitis Atherosclerotic Heart Disease Of [place] Coronary Artery Without Angina Pectoris Inferior Vena Cava Filter Press Feeder (Current) Anticoagulant Treatment documented in this encounter [...] 10 mg, oral, Daily, First dose on 8/6/24 at 0900 0934 (Given - Provider: Solitario Gonzalez R.N.) 0952 (Given - Provider: Dorothea Lynch R.N.) 08 (Given - Provider: Arik Jolly, R.N.) enzalutamide [...] Berry R.N.) 2028 (Given - Provider: Nahed J Dozier, R.N.) solifenacin tablet 5 mg ([facility]) 5 [...] R.N.) documented in this encounter Care Teams Behavioral Technician Relationship Specialty Start Date End Date Elsewhere, Pcp PCP - General Internal Medicine 08/13/23 documented as of this encounter
--- OUTSIDE RECORDS SUMMARY | 2024-01-27 08:51 | XMS_ITS | Encounter Summary ---
Author Organization [facility] Address [address] [place] [address] Care Team Providers Care Director Of Cardiology Service Line Name Role Phone Elsewhere, Pcp Primary Care Provider Unavailabl e Encounter Details Date Type Department Care Team (Late st Contact Info) Description 11/14/2023 Documentation Department of Urology in [place], [place] [address] [place] [address] Sowmya Aviles, ARUN, C.N.P., M.S.N. [address] [place] [phone] Social History Tobacco Use Types Packs/Day Years Used Date Smoking Tobacco: Never Smokeless Tobacco: Never [facility] Utilities Answer Date [...] have a [facility] place to live 11/15/2023 Sex and Gender Information Value Date Recorded Sex Assigned at Not on file Legal Sex Male 10:48 AM CDT Gender Identity Not on file Sexual Orientation Not on file documented as of this encounter Progress Notes * Sowmya Aviles APRN, C.N.P., M.S.N. - 11/14/2023 3:31 PM CDT Contacted via [facility] regarding this patient. Not personally seen or evaluated as patient is in the [facility] Emergency Department. Kalen Vega is a 83 y.o. male with medical comorbidities of acute DVT on Plavix, coronary artery disease status post stent, degenerative joint disease, hyperlipidemia, lymphedema, prediabetes. 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 Tan in [place], [place]. Right hydronephrosis and right atrophic kidney [...] was readmitted to hospital. He presented to [facility] Emergency Department today for evaluation of hematuria and no drainage into urinary catheter. He reports leakage around the catheter of urine and blood clots. A 22 Serbian three-way catheter was placed, patient was hand [...] visit Department of Urology in [place], [place] [address] [place] [address] Burke Strauss M.D. [address] [place] [address] Discharge Disposition: Home or Self Care documented as of this encounter Visit Diagnoses Not on filedocumented in this encounter Care Teams Director Of Cardiology Service Line Relationship Specialty Start Date End Date Elsewhere, Pcp PCP - General Internal Medicine 08/13/23 documented as of this encounter
--- OUTSIDE RECORDS SUMMARY | 2024-01-27 08:51 | XMS_ITS | Encounter Summary ---
Author Organization [facility] Address [address] [place] [address] Care Team Providers Care Sap Basis Administrator Name Role Phone Elsewhere, Pcp Primary [...] CDT Procedure visit Department of Urology in [place], [place] [address] [place] [address] Burke Strauss M.D. 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
--- OUTSIDE RECORDS SUMMARY | 2024-01-27 08:51 | XMS_ITS | Encounter Summary ---
Author Organization [facility] Address [address] [place] [address] Care Team Providers Care Research Associate Quality Control Qc Name Role Phone Elsewhere, Pcp Primary Care Provider Unavailabl e Encounter Details Date Type Department Care Team (Late st Contact Info) Description 11/15/2023 10:40 AM CDT Ancillary Procedure Department of Wound Ostomy Social History Tobacco Use Types Packs/Day Years Used Date Smoking Tobacco: Never Smokeless Tobacco: Never [facility] Utilities Answer Date Recorded In the past 12 months has th e electric, gas, oil, or water [employer] threatened to shut off services in [...] Procedure visit Department of Urology in [address] [phone] Burke Strauss M.D. [address] [place] [phone] Discharge Disposition: Home or Self Care documented [...] In System IMG NON RAD IMAGING PROCE DURALEXANDRA Final Result IIMS NA documented in this encounter Visit Diagnoses Not on filedocumented in this encounter Care Teams Research Associate Quality Control Qc Relationship Specialty Start Date End Date Elsewhere, Pcp PCP - General Internal Medicine 08/13/23 documented as of this encounter
--- OUTSIDE RECORDS SUMMARY | 2024-01-27 08:51 | XMS_ITS | Encounter Summary ---
Author Organization [facility] Address [address] [place] [address] Care Team Providers Care Landscape Gardener Name Role Phone Elsewhere, Pcp Primary [...] have a [facility] place to live 11/15/2023 Sex and Gender Information Value Date Recorded Sex Assigned at Not on file Legal Sex Male 10:48 AM CDT Gender Identity Not on file Sexual Orientation Not on file documented as of this encounter Plan of Treatment Upcoming Encounters Date Type Department Care Team (Latest Contact Info) Description 02/01/2024 10:00 AM CDT Procedure visit Department of Urology in [place], [place] [address] [place] [address] Burke Strauss M.D. [facility] [place] [address] Discharge Disposition: Home or Self Care documented as of this encounter Visit Diagnoses Not on filedocumented in this encounter Care Teams Landscape Gardener Relationship Specialty Start Date End Date Elsewhere, Pcp PCP - General Internal Medicine 08/13/23 documented as of this encounter
--- OUTSIDE RECORDS SUMMARY | 2024-01-27 08:52 | XMS_ITS | Data Portability ---
Author Organization [facility] Address [address] [place] [address] Care Team Providers Care Supervisor Plastics Name Role Phone MASOUD SAUER Primary Care Provider Assessment No assessment recorded. Plan of Treatment Reminders Order Date Submit Date Provider Last Modified By Organization Details Last Modified Time Details Appointments None recorded . Lab urinalys is, dipstick 2023 024 [email or web address] [facility], [address] [place], [address], 4 15:08:54 culture, urine 2023 024 [facility], [address], [place], [address], 4 10:11:11 Referral None recorded . Procedures None recorded . Surgeries cystosco py with ureteral stent exchange (SURG) 2021 022 [email or web address] Not available 16:50:47 cystosco py with ureteral stent exchange (SURG) 2021 022 [email or web address] Not available 15:46:30 Imaging None recorded . Medication Orders Myrbetri q 50 mg tablet,e xtended release 2021 022 [id number], [address] [place], [place], [id number], 2 17:50:02 Bactrim DS 800 mg-160 mg tablet 2023 024 [email or web address] [id number], [address] [place], [place], [id number], 16:19:28 Patient TargetsNo targets recorded. Patient InstructionsNo [...] for provi sydni revie w. Not Available [facility] [address], [place], [address], 06/25/2023 10:11:11 06/23/19 24 06/23/2023 urina lysis , dipst ick Color-Status Red Not Available [facility] [address], [place], [address], 06/23/2023 15:08:10 06/23/19 24 06/23/2023 urina lysis , dipst ick pH-Status 7.5 Not Available [facility] [address], [place], [address], 06/23/2023 15:08:10 06/23/19 24 06/23/2023 urina lysis , dipst ick Protein-Stat us >=9.0 Not Available [facility] [address], [place], [address], 06/23/2023 15:08:10 06/23/19 24 06/23/2023 urina lysis , dipst ick Nitrates-Sta tus negati ve Not Available [facility] [address], [place], [address], 06/23/2023 15:08:10 06/23/19 24 06/23/2023 urina lysis , dipst ick Blood-Status Large Not Available [facility] [address], [place], [address], 06/23/2023 15:08:10 06/23/19 24 06/23/2023 urina lysis , dipst ick Leuko-Status Negati ve Not Available [facility] [address], [place], [address], 06/23/2023 15:08:10 06/23/19 24 06/23/2023 urina lysis , dipst ick Specimen Type Voided Not Available [facility] [address], [place], [address], 06/23/2023 15:08:10 07/04/19 24 07/01/2023 CT, abdom en + pelvi s, w/o contr ast No observ ation record ed. [email or web address] [facility] [address], [place], [address], 09/01/2023 14:40:29 07/18/19 24 07/18/2023 XR, kidne y + urete r + bladd er No observ ation record ed. [email or web address] [facility] [address], [place], [address], 07/22/2023 15:56:19 Result Notes None recorded. Procedures Surgical History Date Name Laterality Status Provider Name and Address Organization Details Recorded Time Bladder Scan completed Rabia Mariaelena [facility] 06/23/2023 15:08:00 Cystoscopy completed Nicola Ware MD [address], [place], [address], [facility] 12/30/2021 17:11:17 Colonoscopy completed Nicola Ware MD [address], [place], [address], [facility] 12/30/2021 17:11:22 Imaging Results Imaging Date Name Status LastModified by Organiz ation Details LastModified Time 07/01/2023 CT, abdomen + pelvis, w/o contrast completed [address] [facility] [address] [facility], [place], [address], 09/01/2023 14:40:29 07/18/2023 XR, kidney + ureter + bladder completed [address], [place], [address], 07/22/2023 15:56:19 Procedure Notes None recorded. Medical [...] PY PREP INSTRUCTI ONS RECEIVED FROM [facility] active Not Available Not Available No t Available furosemide 20 mg tablet TAKE 1 TABLET BY MOUTH DAILY active Not Available Not Available No t Available cefuroxime axetil 500 mg tablet active Not Available Not Available No t Available polyethylen e glycol 3350 17 gram/dose oral powder MIX AND DRINK DIRECTED IN [facility] PY PREP INSTRUCTI ONS RECEIVED FROM [facility] active Not Available Not Available No [...] Updated DateTime 12/30/2021 177.8 cm 27.4 kg/m2 91470.14 g Nicola Ware MD [address] [place] [address], [phone] 12/30/2021 17:10:12 Date Recorded Body height Body mass index (BMI) Body weight Provider Name and Address Organization Details Last Updated DateTime 03/12/2022 177.8 cm 27.4 kg/m2 69395.14 g Rabia Ferrell [facility] 03/12/2022 13:55:47 Social History Question Answer Notes LastModified by Organizat ion Details LastModified Time Tobacco Smoking Status Never Smoker Nicola Ware MD [address] [place] [address],[address], [address], [facility] 12/30/2021 17:11:00 What Is Your [...] Diagnosis/Indication Diagnosis SNOMED-CT Code Diagnosis ICD10 Code [id number] Nicola Ware MD [facility] [address] [place] [address] 12/30/2021 16:01:19 01/01/2022 09:36:50 Increased frequency of urination 206915490 R35.0 Malignant tumor of prostate 389831833 C61 Hydronephrosis 47686628 N13.30 [id number] Aliza Landeros [facility] [address] [place] [address] 03/12/2022 13:13:50 03/15/2022 14:00:47 Increased frequency of urination 930933320 R35.0 Malignant tumor of prostate 873243348 C61 Hydronephrosis 58403036 N13.30 [id number] Nicola Ware MD [facility] [address] [place] [address] 06/23/2023 14:16:52 06/24/2023 08:40:38 Blood in urine 69372921 R31.9 Health Concerns Section Related Observation LastModified by Organization Detai ls LastModified Time None Recorded Concern Status LastModified by Organization Details LastModified Time None Recorded Advance Directives Directive None Recorded Payers Encounter Date Sequence Insurance Name Policy Number Policy Krishnan Covered Member ID Krishnan Member ID Guarantor Name 12/30/2021 1 MEDICA (MEDICARE REPLACEMENT/ ADVANTAGE - PPO) [id number] José Miguel D Braucher [id number] José Miguel D Braucher 03/12/2022 1 [employer] (MEDICARE REPLACEMENT/ ADVANTAGE - PPO) [id number] José Miguel D Braucher [id number] José Miguel D Braucher 06/23/2023 1 [employer] (MEDICARE REPLACEMENT/ ADVANTAGE - PPO) [id number] José Miguel Srinivasan Braucher [id number] José Miguel D Braucher Notes Date Note Type Note Provider Name and Address Organization Details Recorded Time 12/30/2021 text/html HPI Notes: Excer pt from hospital consultation... 81 y.o. year old male who was admitted to [facility] for gross hematuria & CT [...] history. Nicola Ware MD [address] [facility] [address] [address], [place], [address], [facility] 12/30/2021 23:07:10 03/12/2022 text/html HPI Notes: Excer pt from hospital consultation... 81 y.o. year old male who was admitted to [facility] for gross hematuria & CT [...] some of the history. Nicola Ware MD [address] [place] [address],[address], [place], [address], [facility] 03/12/2022 17:21:47 06/23/2023 text/html HPI Notes: 83 Y male here after calling triage this AM with hematuria/pain with urination. Patient has stent in place, last exchange 02/08/2022. 06/23/23 visit completed by Curry Ware MD [address] [place] [address],[address], [place], [address], [facility] 06/23/2023 16:19:33
== END 2024-01-27 08:48 | disposition home or self-care (01) ==
LOC: WOUND 08:47
PROVIDERS: PCP Family Medicine; Visit Provider Family Medicine
DX: L89.153 Pressure ulcer of sacral region, stage 3 (principal)
CPT/HCPCS: G0463

== ENCOUNTER 2024-02-10 09:50 | Outpatient (CLI) | payer MEDICARE, OTHER, SELFPAY ==
--- OUTSIDE RECORDS SUMMARY | 2024-02-10 09:53 | XMS_ITS | Referral Summary ---
Author Organization [facility] Address [address] [place] [address] Care Team Providers Care Animal Taxonomist Name Role Phone Cesar Mccollum Primary Care Provider [phone] Allergies No known active allergies Medications amLODIPine (NORVASC) 10 MG tablet Take 10 mg by mouth daily Active vitamin D3 (CHOLECALCIFEROL ) 50 mcg (2000 units) tablet Take 1 [...] mouth daily Active phenazopyridine (PYRIDIUM) 100 MG tabletIndication s:Hydronephrosis with urinary obstruction due to ureteral calculus Take 1 tablet (100 mg) by mouth 3 times daily as needed for urinary tract discomfort 9 tablet 2 Active Calcium Carb-Cholecalcif tay (CALCIUM CARBONATE-VITAMI N D3 PO) 1 capsule 2 Active Social History Tobacco Use Types Packs/Day [...] at Not on file Legal Sex Male 4:45 PM CDT Gender Identity Not on file Sexual [...] on file Medical Devices Implanted Type Area Freight Dispatcher Device Identifier Shelf Expiration Date Model / Serial / Lot Stent Ureteral Polaris Ultra [id number] - [id number] Implanted:Qty : 1 on 02/08/2022 by Nicola Ware MD at [facility] Stent Right: Ureter [employer] [id number] 10/08/2024 [id number] Explanted Type Area Freight Dispatcher Device Identifier Shelf Expiration Date Model / Serial / Lot Stent Came Out Of The Right Ureter Explanted:Qty: 1 on 02/08/2022 by Nicola Ware MD at [facility] Right: Urethra Insurance [employer] [place] MEDICARE MED[employer] [place] MEDICARE Advance Directives For more information, please contact: [phone] Documents on File Type Date Recorded Patient Profiler Hand Expl anation Advance Directives and Living Will 02/17/2022 Health Care Directiv e 05/15/2021 Healthcare Agents on File Name Relationship Healthcare Agent Relationship Communication Mindy Waterman Daughter [employer] Altern[employer] te Health Care Agent Meera Vega Spouse Health Care Agent [phone] (Home) Favio Vega Son [employer] Altern ate Health Care Agent Tereso Vega Son [employer] Alterna te Health Care Agent Care Teams Animal Taxonomist Relationship Specialty Start Date End Date Cesar Mccollum [address] [place] [address] PCP - General Family Medicine 11/22/22
--- OUTSIDE RECORDS SUMMARY | 2024-02-10 09:53 | XMS_ITS | Clinical Summary ---
Author Organization [facility] Address [address] [place] [address] Care Team Providers Care Systems Eng Name Role Phone Cesar Mccollum Primary Care Provider [phone] Allergies No known active allergies Medications amLODIPine [...] this topic Medical Devices Implanted Type Area Spoke Maker Device Identifier Shelf Expiration Date Model / Serial / Lot Stent Ureteral Polaris Ultra [id number] - [id number] Implanted:Qty : 1 on 02/08/2022 by Nicola Ware MD at [facility] Stent Right: Ureter [employer] [place] [id number] 10/08/2024 [id number] Explanted Type Area Spoke Maker Device Identifier Shelf Expiration Date Model / Serial / Lot Stent Came Out Of The Right Ureter Explanted:Qty: 1 on 02/08/2022 by Nicola Ware MD at [facility] Right: Urethra Insurance [employer] MEDICARE MED[employer]IME [employer] MEDICARE Advance Directives For more information, please contact: [phone] Documents on File Type Date Recorded Patient Circulation Analyst Expl anation Advance Directives and Living Will 02/17/2022 Health Care Directiv e 05/15/2021 Healthcare Agents on File Name Relationship Healthcare Agent Relationship Communication Mindy Waterman Daughter [employer] Altern[employer] te Health Care Agent Meera Vega Spouse Health Care Agent [phone] (Home) Favio Vega Son [employer] Altern ate Health Care Agent Tereso Vega Son [employer] Alterna te Health Care Agent Care Teams Systems Eng Relationship Specialty Start Date End Date Cesar Mccollum [address] [place] [address] PCP - General Family Medicine 11/22/22
--- OUTSIDE RECORDS SUMMARY | 2024-02-10 09:54 | XMS_ITS | Encounter Summary ---
Author Organization [facility] Address [address] [place] [address] Care Team Providers Care Cook Helper Meat Name Role Phone Elsewhere, Pcp Primary Care Provider Unavailabl e Reason for Referral * Outpatient (Routine) - Authorized Specialty Diagnoses / Procedures Referred By Contac t Referred To Contact UrologBurke Roberts M.D. [address] [place] [phone] Phone: tel: fax: [facility] Referral ID Status Reason Start Date Expiration Date V isits Requested Visits Authorized [id number] Authorized 02/09/2024 08/10/2025 1 1 * Outpatient (Routine) - Authorized Specialty Diagnoses / Procedures Referred By Contac t Referred To Contact UrologBurke Roberts M.D. [address] [place] [phone] Phone: tel: fax: [facility] Region Referral ID Status Reason Start Date Expiration Date V isits Requested Visits Authorized [id number] Authorized 02/09/2024 08/10/2025 1 1 Reason for Visit * Reason Comments Follow-up * Appointment Request (Routine) - Closed Specialty Diagnoses / Procedures Referred By Leyla rosenthal Referred To Contact Urology Referral ID Status Reason Start Date Expiration Date Visits Re quested Visits Authorized [id number] Closed 02/01/2024 01/31/2025 1 1 Encounter Details Date Type Department Care Team (Late st Contact Info) Description 02/09/2024 10:30 AM CDT Office Visit Department of Urology in [place], [place] [address] [place] [phone] Burke Strauss M.D. [address] [place] [phone] Radiation Therapy Cystitis With Hematuria (Primary Dx); Primary Malignant Neoplasm Of Prostate (HCC); Nephrostomy Status Post (HCC) Discharge Disposition: Home or Self Care Social History Tobacco Use Types Packs/Day Years Used Date Smoking Tobacco: Never Smokeless Tobacco: Never [facility] Utilities Answer Date Recorded In the past 12 months has [facility] [employer], gas, oil, or water [employer] threatened to shut off services in [...] the money to buy more. Never true 08/06/20 24 Within the past 12 months, t [...] [facility] 11/15/2023 Sex and Gender Information Value Date Recorded Sex Assigned at Not on file Legal Sex Male 10:48 AM CDT Gender Identity Not on file Sexual Orientation Not on file documented as of this encounter Patient Instructions * Patient Instructions* Burke Strauss M.D. - 02/09/2024 10:30 AM CDT I will contact you regarding the plan for follow-up studies. Try mirabegron (Myrbetriq) for 1-2 weeks and see if urine leakage is improved. Check blood pressures out of the office to make sure it is not too high on the medication. documented in this encounter Progress Notes * Burke Strauss M.D. - 02/09/2024 10:30 AM CDT SUBJECTIVE CHIEF COMPLAINT/REASON FOR VISIT Chief Complaint Patient presents with Follow-up HISTORY OF PRESENT ILLNESS Patient presents for follow-up regarding recent nephrostomy tube exchange, ongoing issues with urinary incontinence. Patient has metastatic prostate cancer, currently under the care of Dr. Tan at the [facility]. He is on Xtandi, Xgeva and Lupron. Evidence of sacral bone involvement and possiblesubcarinal lymph node involvement. PSA has been 0.06 since 2020, most recent check in December 2023. He completed radiation therapy in 2020. 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 He had clot formation resulting in spontaneous bladder rupture in August 2023. This ultimately required cystotomy at [facility] in September 2023. He is now status post hyperbaric oxygen therapy and has had only 1 episode of scant gross hematuria yesterday. He has a nonfunctional right kidney, left nephrostomy tube in place since his cystotomy in September 2023. He had a urethral catheter following his hematuria issues, but this was able to be removed on 01/30/24. Unfortunately, he has been leaking significant urine since that time. Multiple pads per day. Hefeels he is having some bladder spams with leakage at times, other times has insensate leakage. He had been on mirabegron in the past for bladder spasms, but has been off for several months at this time. I-PSS I-PSS Urinary Symptoms Score: (Patient-Rptd) 14 I-PSS Quality of Life Score: (Patient-Rptd) 5 The following portions of the patient's history were reviewed and updated as appropriate: allergies, current medications, family history, medical history, social history, surgical history, and problem list. REVIEW OF SYSTEMS REVIEW OF SYSTEMS OBJECTIVE There were no vitals filed for this visit. PHYSICAL EXAM URO Physical Exam Straight Cath/Bladder Scan Results 7 cc Post void residual urine via electronically calibrated bladder ultrasound ASSESSMENT / PLAN 1. Radiation Therapy Cystitis With Hematuria 2. Primary Malignant Neoplasm Of Prostate (HCC) 3. Nephrostomy Status Post (HCC) We discussed his options for management, including the possibility of getting his left nephrostomy tube out. We discussed potential complications such as pain or injury to the kidney if he is not able to drain adequately from the ureter and bladder. We also discussed that the urine currently draining into his nephrostomy bad would likely leak and his diaper usage would increase. Plan to have him return early next week to cap the left nephrostomy tube, then see how he does overthe next few days. If pain worsens, or urethral urinary leakage is significantly bothersome, he canthen follow-up and the bag can be reattached. If doing well after several days, he can then have the tube removed. Nursing staff will reach out to patient's son, Kar, to arrange for a follow-up appointment. Signed by: Burke Strauss M.D. 02/09/2024 10:55 AM CDT documented in this encounter Plan of Treatment Upcoming Encounters Date Type Department Care Team (Late st Contact Info) Description 02/13/2024 11:45 AM YARN SPINNER Nurse Only Department of Urology in [address] [phone] Burke Strauss M.D. [address] [place] [phone] Discharge Disposition: Home or Self Care 02/16/2024 11:00 AM YARN SPINNER Office Visit Department of Urology in [address] [phone] Burke Strauss M.D. [address] [place] [phone] Scheduled Referrals Name Type Priority Associated Diagnoses Orde r Schedule Urology nurse visit (clinic) Outpatient Referral Routine Expected: 02/13/2024, Expires: 05/11/2025 Urology office visit (clinic) Outpatient Referral Routine Expected: 02/15/2024, Expires: 05/11/2025 documented as of this encounter Visit Diagnoses Diagnosis Radiation Therapy Cystitis With Hematuria- Primary Primary Malignant Neoplasm Of Prostate (HCC) Nephrostomy Status Post (HCC) documented in this encounter Care Teams Cook Helper Meat Relationship Specialty Start Date End Date Elsewhere, Pcp PCP - General Internal Medicine 08/13/23 documented as of this encounter
--- OUTSIDE RECORDS SUMMARY | 2024-02-10 09:54 | XMS_ITS | Encounter Summary ---
Author Organization [facility] Address [address] [place] [address] Care Team Providers Care Cabinet Worker Name Role Phone Elsewhere, Pcp Primary Care Provider Unavailabl e Encounter Details Date Type Department Care Team (Late st Contact Info) Description 02/10/2024 Clinical Communication Department of Urology in [place], [place] [address] [place] [phone] Burke Strauss M.D. [address] [place] [phone] Social History Tobacco Use Types Packs/Day Years Used Date Smoking Tobacco: Never Smokeless Tobacco: Never [facility] Utilities Answer Date Recorded In the past 12 months has e electric, gas, oil, or water [employer] threatened to shut off services in your [...] a [facility] place to live 11/15/2023 Sex and Gender Information Value Date Recorded Sex Assigned at Not on file Legal Sex Male 10:48 AM CDT Gender Identity Not on file Sexual Orientation Not on file documented as of this encounter Plan of Treatment Upcoming Encounters Date Type Department Care Team (Late st Contact Info) Description 02/13/2024 11:45 AM BROTH MIXER Nurse Only Department of Urology in [address] [phone] Burke Strauss M.D. [address] [place] [phone] Discharge Disposition: Home or Self Care 02/16/2024 11:00 AM BROTH MIXER Office Visit Department of Urology in [address] [phone] Burke Strauss M.D. [address] [place] [phone] documented as of this encounter Visit Diagnoses Not on filedocumented in this encounter Care Teams Cabinet Worker Relationship Specialty Start Date End Date Elsewhere, Pcp PCP - General Internal Medicine 08/13/23 documented as of this encounter
--- OUTSIDE RECORDS SUMMARY | 2024-02-10 09:54 | XMS_ITS | Encounter Summary ---
Author Organization [facility] Address [address] [place] [address] Care Team Providers Care Service Delivery Management Consultant Name Role Phone Elsewhere, Pcp Primary Care Provider Unavailabl e Reason for Visit * Reason Comments Nurse Visit Pt here today for fi ll and pull however pt was seen in ER on 01/30/24 and catheter was pulled at that visit. * Outpatient (Routine) - Closed Specialty Diagnoses / Procedures Referred By Leyla rosenthal Referred To Contact Diagnoses Retention Urinary Chronic Procedures URO Urethral cath removal & voiding trial (UCO/VT) Burke Strauss M.D. [address] [place] [phone] Phone: tel: fax: [facility] Region Referral ID Status Reason Start Date Expiration Date Visits Re quested Visits Authorized [id number] Closed 01/23/2024 01/22/2025 1 1 Encounter Details Date Type Department Care Team (Latest Contact Info) Description 02/01/2024 10:00 AM CDT Procedure visit Department of Urology in [place], [place] [address] [place] [phone] Burke Strauss M.D. [address] [place] [phone] Erika Rubi R.N. [address] [place] [phone] Retention Urinary Chronic Discharge Disposition: Home or Self Care Social History Tobacco Use Types Packs/Day Years Used Date Smoking Tobacco: Never Smokeless Tobacco: Never [facility] Utilities Answer Date Recorded In the past 12 months has e [employer], gas, oil, or water [employer] threatened to shut off services in your [...] your living situation today? [facility] 11/15/2023 Sex and Gender Information Value Date Recorded Sex Assigned at Not on file Legal Sex Male 10:48 AM CDT Gender Identity Not on file Sexual Orientation Not on file documented as of this encounter Progress Notes * Erika Rubi R.N. - 02/01/2024 10:00 AM CDT Pt and son Kar present to clinic today for fill and pull per order but upon further discussion pt no longer has a catheter in place. Pt presented to the ER on 01/30/24 for urinary catheter change since urine was milky looking in urinary catheter bag and reduced output. A urine culture was going to be sent that day but they we are not able to obtain any additional urine study therefore was covered with antibiotic Cefdinir 300 mg twice daily x 7 days. Son and pt thought maybe we would try and collect a urine for testing today so they came in for theappointment that was previously scheduled. Pt reports that his last left nephrostomy tube was replaced on 01/12/24. Pt states that his nephrostomy tube is draining clear yellow urine and does not haveconcerns today regarding that. Spoke to Dr. Strauss who is in clinic today regarding update. Dr. Strauss agrees we will hold off on urine testing today since on antibiotic, do PVR and if less than 200 cc, pt can follow up in 2 months or sooner if they would like to discuss plan of care sooner. If greater than 200 cc will see pt for office visit today. Discussed with pt and son. Pt is agreeable to plan. Pt does have urinary incontinence and leaks throughout the day. The bladder scan was performed and scanned as 0 ml after several attempts. Pt decided he would like to discuss next steps with Dr. Strauss next week after finishing antibiotics. Pt and son had no further concerns at this time. Pt was scheduled to see Dr. Strauss on 02/09/24. Pt discharged. documented in this encounter Plan of Treatment Upcoming Encounters Date Type Department Care Team (Late st Contact Info) Description 02/13/2024 11:45 AM CUT OUT MACHINE OPERATOR Nurse Only Department of Urology in [place], [place] [address] [place] [phone] Burke Strauss M.D. [address] [place] [phone] Discharge Disposition: Home or Self Care 02/16/2024 11:00 AM CUT OUT MACHINE OPERATOR Office Visit Department of Urology in [place], [place] [address] [place] [phone] Burke Strauss M.D. [address] [place] [phone] documented as of this encounter Visit Diagnoses Diagnosis Retention Urinary Chronic documented in this encounter Care Teams Service Delivery Management Consultant Relationship Specialty Start Date End Date Elsewhere, Pcp PCP - General Internal Medicine 08/13/23 documented as of this encounter
--- OUTSIDE RECORDS SUMMARY | 2024-02-10 09:54 | XMS_ITS ---
Author Organization [facility] Address [address] [place] [address] Care Team Providers Care Rn Intake Name Role Phone Unavailable Unavailable Unavailable Surgery Details Not on file Complications Check Surgery Details section. Procedure Estimated Blood Loss Check Surgery Details section. Procedure Findings Check Surgery Details section. Procedure Specimens Taken Check Surgery Details section.
--- OUTSIDE RECORDS SUMMARY | 2024-02-10 09:54 | XMS_ITS | Encounter Summary ---
Author Organization [facility] Address [address] [place] [address] Care Team Providers Care Service Girl Name Role Phone Elsewhere, Pcp Primary Care Provider Unavailabl e Reason for Visit * Reason Onset Date Comments Communication 01/16/2024 Follow up questi ons Encounter Details Date Type Department Care Team (Latest Contact Info) Description 01/16/2024 Clinical Communication Department of Urology in [place], [place] [address] [place] [phone] Burke Strauss M.D. [facility] [place] [phone] Communication (Follow up questions) Social History Tobacco [...] [facility] 11/15/2023 Sex and Gender Information Value Date Recorded Sex Assigned at Not on file Legal Sex Male 10:48 AM CDT Gender Identity Not on file Sexual Orientation Not on file documented as of this encounter Plan of Treatment Upcoming Encounters Date Type Department Care Team (Late st Contact Info) Description 02/13/2024 11:45 AM BUSINESS PROCESS ARCHITECT Nurse Only Department of Urology in [place] [address] [place] [phone] Burke Strauss M.D. [facility] [place] [phone] Discharge Disposition: Home or Self Care 02/16/2024 11:00 AM BUSINESS PROCESS ARCHITECT Office Visit Department of Urology in [place], [place] [address] [place] [phone] Burke Strauss M.D. [facility] [place] [phone] documented as of this encounter Visit Diagnoses Not on filedocumented in this encounter Care Teams Service Girl Relationship Specialty Start Date End Date Elsewhere, Pcp PCP - General Internal Medicine 08/13/23 documented as of this encounter
--- OUTSIDE RECORDS SUMMARY | 2024-02-10 09:54 | XMS_ITS | Referral Summary ---
Author Organization [facility] Address [address] [place] [address] Care Team Providers Care Display Designer Name Role Phone Elsewhere, Pcp Primary Care Provider Unavailabl e Source Comments Patient records contain information from all sites at [facility]. For routine questions regarding patient records, call [phone] during business hours, M-F 8:00 AM - 5:00 PM Central Time. Record requests for emergency care only can be directed to [phone] at any time.[facility] Encounters Date Type Department Care Team Description 02/10/2024 Clinical Communication Department of Urology in [place] [id number] [place] [address] Burke Strauss M.D. 02/09/2024 10:30 AM CDT Office Visit Department of Urology in [address] [phone] Burke Strauss M.D. Radiation Therapy Cystitis With Hematuria (Primary Dx); Primary Malignant Neoplasm Of Prostate (HCC); Nephrostomy Status Post (HCC) Discharge Disposition: Home or Self Care 02/01/2024 10:00 AM CDT Procedure visit Department of Urology in [address] [phone] Burke Strauss M.D. Mayer, Paula R, R.N. Retention Urinary Chronic Discharge Disposition: Home or Self Care 01/30/2024 7:57 PM CDT - 01/30/2024 9:03 PM CDT [facility] [address] [place] [phone] Shawn De Luna M.D. Removal Or Exchange Catheter (Primary Dx) Discharge Disposition: Home or Self Care 01/18/2024 Clinical Communication Department of Urology in [address] [address] Burke Strauss M.D. Communication (Questions on return visit with Dr. Strauss) 01/16/2024 Clinical Communication Department of Urology in [address] [phone] Burke Strauss M.D. Communication (Follow up questions) 01/12/2024 8:30 AM CDT - 01/12/2024 9:52 AM CDT Hospital Encounter Department of Radiology in [address] [phone] Ingrid Desai M.D. Chow, Andrew Z, M.D. Nephrostomy Status Post (HCC) (Primary Dx); Primary Malignant Neoplasm Of Prostate (HCC) Discharge Disposition: Home or Self Care 01/11/2024 Clinical Communication Department of Radiology in [address] [phone] Ingrid Desai M.D. 01/11/2024 10:18 AM CDT - 01/11/2024 11:59 PM CDT Hospital Encounter Department of Laboratory Medicine in [address] [phone] Burke Strauss M.D. Retention Urinary Chronic Discharge Disposition: Home or Self Care 01/11/2024 10:00 AM CDT Office Visit Department of Urology in [address] [address] Burke Strauss M.D. Retention Urinary Chronic (Primary Dx); Radiation Therapy Cystitis With Hematuria; Primary Malignant Neoplasm Of Prostate (HCC); Nephrostomy Status Post (HCC) Discharge Disposition: Home or Self Care 01/11/2024 9:00 AM CDT Procedure visit Department of Urology in [address] [address] Burke Strauss M.D. Factor, Piper L, R.N. Retention Urinary Chronic Discharge Disposition: Home or Self Care 01/09/2024 Documentation Department of Urology in [place], [place] [address] [place] [phone] Corin Ring M.D. 01/09/2024 2:59 PM CDT - 01/09/2024 6:29 PM CDT [facility] [address] [place] [phone] Sergio Raza M.D. Nephrostomy Status Post (HCC) (Primary Dx) Discharge Disposition: Home or Self Care 12/13/2023 9:15 AM CDT Nurse Only Department of Urology in [address] [phone] Burke Strauss M.D. Gray, Margaret A LJonahPNarendra Nurse Visit (Catheter Irrigation ) Discharge Disposition: Home or Self Care 12/08/2023 9:30 AM CDT Office Visit Department of Urology in [address] [address] Burke Strauss M.D. Retention Urinary Chronic (Primary Dx); Anemia; Anemia In Neoplastic Disease; Theatrical Rigger (Current) Anticoagulant Treatment Discharge Disposition: Home or Self Care 12/07/2023 12:19 PM CDT - 12/07/2023 11:59 PM CDT Hospital Encounter Department of Laboratory Medicine in [place] [address] [place] [phone] Burke Strauss M.D. Anemia; Hematuria Gross; Retention Urinary Chronic Discharge Disposition: Home or Self Care 12/07/2023 10:30 AM CDT Office Visit Department of Urology in [address] [phone] Burke Strauss M.D. Hematuria Gross (Primary Dx); Radiation Therapy Cystitis With Hematuria; Anemia; Retention Urinary Chronic Discharge Disposition: Home or Self Care 11/30/2023 6:44 PM CDT - 11/30/2023 8:06 PM CDT [facility] [address] [place] [phone] Carmen Cherry M.D., M.P.H. Leakage Of Other Urinary Catheter Initial (HCC) (Primary Dx) Discharge Disposition: Home or Self Care 11/14/2023 11:38 PM CDT - 11/17/2023 3:55 PM CDT Hospital Encounter [facility], [facility], Fifth Floor [address] [place] [address] Eliceo Guerrier M.D., Ph.D. Sylvie Álvarez M.B.B.S., M.Craig. Rashawn Vences M.D. Burkland, Carl B, M.D. Hematuria Gross (Primary Dx) Discharge Disposition: Home-Health Care [facility] 11/15/2023 10:40 AM CDT Ancillary Procedure Department of Wound Ostomy 11/14/2023 Documentation Department of Urology in [place], [place] [address] [place] [address] Sowmya Aviles APRN, C.N.P., M.S.N. 11/14/2023 Intake [facility] 11/14/2023 10:44 AM CDT - 11/14/2023 10:23 PM CDT [facility] [address] [place] [phone] Sergio Raaz M.D. Hematuria (Primary Dx); Malfunction Mechanical Urethral Catheter Initial (HCC) Discharge Disposition: Acute [facility] 11/10/2023 Clinical Communication Department of Urology in [address] [phone] Burke Strauss M.D. Oncology records request from Last 3 Months Allergies No known [...] 10 mg by mouth every morning. Active cefdinir (Omnicef) 300 mg capsule Take 1 capsule (300 mg total) by mouth 2 (two) times a day before morning and evening meals for 7 days. 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 Utilities Answer Date Recorded In the past 12 months has e [employer], gas, oil, or water [employer] threatened to shut off services in your [...] a [facility] place to live 11/15/2023 Sex and Gender Information Value Date Recorded Sex Assigned at Not on file Legal Sex Male 10:48 AM CDT Gender Identity Not on file Sexual Orientation Not on file Last Filed Vital Signs Vital Sign Reading Time Taken Comments Blood Pressure 133/69 01/30/2024 8:45 PM CDT Pulse 74 01/30/2024 8:45 PM CDT Temperature 37.1 ??C (98.8 ??F) 01/30/2024 9:01 PM CD T Respiratory Rate 16 01/12/2024 8:30 AM CDT Oxygen Saturation 97% 01/30/2024 8:45 PM CDT Inhaled Oxygen Concentration - - Weight 81.9 kg (180 lb 9.6 oz) 01/09/2024 2:56 P M CDT Height 180.3 cm (5' 11) 01/09/2024 2:56 PM CDT Body Mass Index 25.19 01/09/2024 2:56 PM CDT Plan of Treatment Upcoming Encounters Date Type Department Care Team (Late st Contact Info) Description 02/13/2024 11:45 AM CHARTER PILOT Nurse Only Department of Urology in [address] [phone] Burke Strauss M.D. [address] [place] [phone] Discharge Disposition: Home or Self Care 02/16/2024 11:00 AM CHARTER PILOT Office Visit Department of Urology in [address] [phone] Burke Strauss M.D. [address] [place] [phone] Medical Devices Implanted Type Area Battery Checker Device Identifier Shelf Expiration Date Model / Serial / Lot Clp Hrzn Ti 6 Clp Lg Orng - [id number] Implanted:Qt y: 1 on 08/15/2023 by Boubacar Brock M.D. at [facility] Hardware e.g. pins/screws /rods [employer] [id number] 02/29/2028 [id number] / / [id number] Clp Hrzn Ti 6 Clp Lg Orng - [id number] Implanted:Qt y: 1 on 08/15/2023 by Boubacar Brock M.D. at [facility] Hardware e.g. pins/screws /rods [employer] [id number] 02/29/2028 [id number] / / [id number] Clp Hrzn Ti 6 Clp Md Monty - [id number] Implanted:Qt y: 1 on 08/15/2023 by Boubacar Brock M.D. at [facility] Hardware e.g. pins/screws /rods [employer] [id number] 03/13/2028 [id number] / / [id number] 1 Clp Hrzn Ti 6 Clp Md Monty - [id number] Implanted:Qt y: 1 on 08/15/2023 by Boubacar Brock M.D. at [facility] Hardware e.g. pins/screws /rods [employer] [id number] 03/21/2028 [id number] / / [id number] 3 Stnt Uret Inl 6fx24 - [id number] Implanted:Qt y: 1 on 08/15/2023 by Jakob De Paz M.D. at [facility] Ureteral Stent N/A: Ureter [employer].Bard [id number] 11/18/2027 [id number] / / [id number] Procedures Procedure Name Priority Date/Time Associated Diagnosis [...] Patient education provided by a care steam cleaner. Patient was ready to learn with no apparent learning barriers were identified. Post-procedure care explained; patient expressed understanding of the content. PROCEDURE DETAILS: Sedation: None. Sedation time: Not applicable. Estimated Blood Loss: Less than 10 mL. TECHNIQUE: Imaging guidance for catheter exchange: Fluoroscopy with permanent image storage Access side: Left Catheter: 10.2 Tristanian 25 cm pigtail nephrostomy catheter Technique: The indwelling 10.2 Tristanian catheter was injected with contrast. A guidewire was inserted through the catheter but was unable to advance the catheter back into the renal pelvis. Micropuncture was used to place a new wire in tandem with the catheter into the renal pelvis. The indwelling catheter was removed and exchanged for a new 10.2 Tristanian catheter. A permanent image was saved to [...] Patient education provided by a care steam cleaner. Patient was ready to learn withno apparent learning barriers were identified. Post-procedure careexplained; patient expressed understanding of the content. PROCEDURE DETAILS: Sedation: None. Sedation time: Not applicable. Estimated Blood Loss: Less than 10 mL. TECHNIQUE: Imaging guidance for catheter exchange: Fluoroscopy with permanent imagestorage Access side: Left Catheter: 10.2 Tristanian 25 cm pigtail nephrostomy catheter Technique: The indwelling 10.2 Tristanian catheter was injected with contrast.A guidewire was inserted through the catheter but was unable to advancethe catheter back into the renal pelvis. Micropuncture was used to place anew wire in tandem with the catheter into the renal pelvis. The indwelling catheter was removed andexchanged for a new 10.2 Tristanian catheter. A permanent image was saved [employer]. The catheter was connected to a gravity [...] into the renal pelvis. Ingrid Desai M.D. [facility] IR PROCEDURES Final Result * (ABNORMAL) Basic [...] M.D. LAB BLOOD ADD-ON Final Resu lt [facility] [address] [place] [address], [place] NPRG [facility] [address] [place] [address] * CT Abdomen Pelvis with IV Contrast [...] M.D. LAB BLOOD ADD-ON Final Resul t [facility] [address] [place] [address], [place] NPR[place] [facility] [address] [place] [address] * (ABNORMAL) Lipase (01/09/2024 4:29 PM CDT) Lipase, P 12(L) 13 - 60 U/L 01/09/2024 4: 46 PM CDT NPRG Blood (Blood, Venous) 01/09/2024 4:29 PM CDT 01/09/2024 4:32 PM CDT us Sergio Raza M.D. LAB BLOOD ADD-ON Final Resul t [facility] [address] [place] [address], [facility] NPRG [place] [address] [place] [address] * (ABNORMAL) Hemoglobin (12/07/2023 12:25 PM CDT) Only the most recent of2 resultswithin the time period is included. Hemoglobin 9.2(L) 13.2 - 16.6 g/dL 12/07/2023 12:33 PM CDT NPRG Blood (Blood, Venous) 12/07/2023 12:25 PM CDT 12/07/2023 12:27 PM CDT us Burke Strauss M.D. LAB BLOOD ADD-ON Final Resu lt Performing Organization Address [facility]/ZIP Co de Phone Number [facility] [address] [place] [address], [facility] NPRG [place] [address] [place] [address] * Creatinine with Estimated GFR (12/07/2023 12:25 PM CDT) Creatinine 1.13 0.74 - 1.35 mg/dL 12/07/2023 12:49 PM CDT NPRG Estimated GFR (eGFR) 64 >=60 mL/min/BSA 12/07/2023 12:49 PM CDT NPRG Comment: Estimated GFR calculated using the 2020 CKD_EPI creatinine equation. Blood (Blood, Venous) 12/07/2023 12:25 PM CDT 12/07/2023 12:27 PM CDT us Burke Strauss M.D. LAB BLOOD ADD-ON Final Resu lt [facility] [address] [place] [address], [facility] NPRG [facility] [address] [place] [address] * (ABNORMAL) CBC without Differential (11/17/2023 7:24 [...] D.O. LAB BLOOD ADD-ON Final Re sult [facility] [address] [place] [address], [place] MKTO [facility] in [place] [address] [place] [address] * Glucose, POCT (11/17/2023 6:45 AM CDT) Glucose, POCT, B 107 70 - 140 mg/dL 11/17/2023 6:45 AM CDT MKTO Blood 11/17/2023 6:45 AM CDT 11/17/2023 7:03 AM CDT us Generic Rals LAB POCT ORDERABLES-MANUAL Final Result [facility] [address] [place] [address], [facility] MKTO [facility] [place] [address] [place] [address] * (ABNORMAL) CBC with Differential, Blood (11/16/2023 [...] M.D. LAB BLOOD ADD-ON Final Resul t [facility] [address] [place] [address], [facility] MKTO [facility] in [place] [address] [place] [address] * (ABNORMAL) Comprehensive Metabolic Panel (11/16/2023 6:25 [...] M.D. LAB BLOOD ADD-ON Final Resul t [facility] [address] [place] [address], [facility] [place] [address] * Transfuse Red Blood Cells : (11/15/2023 6:35 PM CDT) us Madelyn Cesar D.O. BLOOD TRANSFUSION ORDERABLES F inal Result * Testing Location (11/15/2023 11:09 AM CDT) Testing Location [facility] DEFAULT 11/15/2023 11:47 AM CDT MKTO Blood 11/15/2023 11:0 9 AM CDT 11/15/2023 11:47 AM CDT us Sergio Raza M.D. LAB BLOOD BANK TEST ORDERABL ES Final Result Performing Organization Address City/[facility]/ZIP Co de Phone Number [facility] [address] [place] [address], [facility] MKTO [facility] [place] [address] [place] [address] * Coccyx-Wound Ostomy Image Exam (11/15/2023 10:40 [...] PROCE DURES Final Result Performing Organization Address [facility] Co de Phone Number [facility] NA * ECG 12 Lead (11/15/2023 6:47 AM CDT) Ventricular Rate ECG/Min 65 BPM MUSE NE Interval 144 ms MUSE QRSD Interval 76 ms MUSE QT Interval 430 ms MUSE QTC Interval 447 ms MUSE P Blair -7 degrees MUSE R Blair 9 degrees MUSE T Wave [place] 19 degrees MUSE 11/15/2023 6:47 AM CDT [...] ECG ORDERABLES Final Result Performing Organization Address City/[facility]/ZIP Co de Phone Number MUSE [...] determine due to color interference Specific [place] SEE COMMENT 1.001 - 1.035 11/15/2023 8:03 AM CDT MKTO Comment:Unable to determine due to color interference Urobilinogen SEE COMMENT 0.2 - 1.0 mg/dL 11/15/2023 8:03 AM CDT MKTO Comment:Unable to determine due to color interference Urine (Urine, Midstream) 11/15/2023 6:25 AM CDT 11/15/2023 6:34 AM CDT Sylvie Wright M.D. LAB URINE ORDER JUAN M Final Result Performing Organization Address City/[facility]/ZIP Co de Phone Number [facility] [address] [place] [address], [address] [address] * (ABNORMAL) Microscopic Automated (11/15/2023 6:25 AM [...] JUAN M Final Result Performing Organization Address City/[facility]/ZIP Co de Phone Number [facility] [address] [place] [address], [address] [address] * Bacterial Culture, Aerobic + Susceptibility, Urine (11/15/2023 6:24 AM CDT) Urine Culture Urogenital microbiota, susceptibilities not performed per laboratory criteria. 11/16/2023 11:36 AM CDT MKTO Urine (Urine, Indwelling Catheter) 11/15/2023 6:24 AM CDT 11/15/2023 9:29 AM CDT Comment:Specimen Source Site : Urine us Zachery Tanner HEAD KNITTING MACHINE FIXER, C.N.P., M.S. LAB MICROBIOLOGY - GENERAL ORDERABLES Final Result [facility] [address] [place] [address], [facility] MKTO [facility] [place] [address] [place] [address] * CT Abdomen Pelvis without IV Contrast [...] Bank Hold Sample (11/14/2023 11:09 AM CDT) [facility] Blood Bank Hold Sample HOLD Confirmed 11/14/2023 11:31 AM CDT NPRG Blood (Blood, Venous) 11/14/2023 11:09 AM CDT 11/14/2023 11:12 AM CDT Sergio Raza M.D. LAB BLOOD BANK TEST ORDERABL ES Final Result [facility] [address] [place] [address], [facility] [address] [place] [address] * Type and Screen (with Reflex Antibody ID) (11/14/2023 11:09 AM CDT) [facility] ABO Group O 11/15/2023 12:49 PM CDT NPRG Rh Type POS 11/15/2023 12:49 PM CDT NPRG Antibody Screen NEG 12:49 PM CDT NPRG Type & Screen Expiration 11/17/2023 23:59 11/15/2023 12:49 PM CDT NPRG ELXM Eligible Y 11/15/2023 12:49 PM CDT NPRG Blood 11/14/2023 11:0 9 AM CDT 11/15/2023 11:47 AM CDT Sergio Raza M.D. LAB BLOOD BANK TEST ORDERABL ES Final Result [facility] [address] [place] [address], [place] NPR[place] [facility] [address] [place] [address] from Last 3 Months Insurance MEDICARE MEDICA Advance Directives For more information, please contact: [phone] * Full Code (Latest Code Status on [...] Answer Comments Full Code: Discussed Care Teams Display Designer Relationship Specialty Start Date End Date Elsewhere, Pcp PCP - General Internal Medicine 08/13/23
--- OUTSIDE RECORDS SUMMARY | 2024-02-10 09:54 | XMS_ITS | Encounter Summary ---
Author Organization [facility] Address [address] [place] [address] Care Team Providers Care Software Design Analyst Name Role Phone Elsewhere, Pcp Primary Care Provider Unavailabl e Reason for Visit * Reason Comments Urinary Catheter Change Pt presents with new cloudy milky looking urine in urinary catheter bag. Pt family concerned for UTI. Catheter scheduled to be removed on Tuesday at urology follow-up. Encounter Details Date Type Department Care Team (Late st Contact Info) Description 01/30/2024 7:57 PM CDT - 01/30/2024 9:03 PM CDT Emergency [facility] [address] [place] [id number] Shawn De Luna M.D. [address] [place] [phone] Removal Or Exchange Catheter (Primary Dx) Discharge Disposition: Home or Self Care Social History Tobacco Use Types Packs/Day Years Used Date Smoking Tobacco: Never Smokeless Tobacco: Never [facility] Utilities Answer Date Recorded [...] 01/30/2024 9:01 PM CD T Respiratory Rate - - Oxygen Saturation 97% 01/30/2024 8:45 PM CDT Inhaled Oxygen Concentration - - Weight - - Height - - Body Mass Index - - documented in this encounter Discharge Instructions * Attachments The following attachments cannot be sent through Care Everywhere. * Indwelling Urinary Catheter Care Adult ([place]) documented in this encounter Medications at [...] Take 10 mg by mouth every morning. cefdinir (Omnicef) 300 mg capsule Take 1 capsule (300 mg total) by mouth 2 (two) times a day before morning and evening meals for 7 days. 14 capsule 01/30/2024 4 documented as of this encounter ED Notes * Shawn De Luna M.D. - 01/30/2024 8:44 PM CDT SUBJECTIVE CHIEF COMPLAINT/REASON FOR VISIT Urinary Catheter Change (Pt presents with new cloudy milky looking urine in urinary catheter bag.Pt family concerned for UTI. Catheter scheduled to be removed on Tuesday at urology follow-up. ) HISTORY OF PRESENT ILLNESS Kalen Vega is a 83 y.o. male presents emergency department for evaluation of complication of a Tabares catheter. Patient has history of radiation cystitis with hematuria, history of Tabares catheter with plan for removal on Tuesday. Today noted to have milky looking urine in the catheter and reduced output. No fevers or chills, denies any pain or other associated symptoms prior he has tried no medication interventions, now here for assessment and evaluation. 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 HENT: Negative for mouth sores. Eyes: Negative for visual disturbance. Respiratory: Negative for cough. Cardiovascular: Negative for leg swelling. Gastrointestinal: Negative for vomiting. Genitourinary: Negative for dysuria. Reduced Tabares catheter output Skin: Negative for rash. Neurological: Negative for headaches. Hematological: Does not bruise/bleed easily. ALLERGIES/MEDICATIONS: Reviewed in medical record. MEDICAL HISTORY History reviewed. No pertinent past medical history. 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[facility]) 11/15/2023 Atherosclerotic Heart Disease Of [place] Coronary Artery Without Angina Pectoris 11/15/2023 Complication Procedure Initial 11/15/2023 Deficiency Iron 11/15/2023 Hyperlipidemia 11/15/2023 Hypertension Essential Primary 11/15/2023 Assisted Current Use Of Other Agents Affecting Estrogen Receptors And Estrogen Levels 11/15/2023 Presence Of Other Vascular Implants And Grafts 11/15/2023 Other Specified Disorders Of Bladder 11/15/2023 Other Retention Of Urine 11/15/2023 PreDiabetes 11/15/2023 Presence Of Urogenital Implants 11/15/2023 Unspecified Complication Of Genitourinary Prosthetic Device Implant And Graft Initial ([facility]) 11/15/2023 Inferior Vena Cava Filter 11/15/2023 Music Adapter (Current) Anticoagulant Treatment 11/15/2023 Presence Of Other Specified Devices 10/20/2023 Other Artificial Openings Of Urinary Tract Status ([facility]) 09/29/2023 Hematuria 08/13/2023 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 Lymphedema 03/21/2020 Primary Malignant Neoplasm Of Prostate ([facility]) 03/18/2020 Thrombosis Deep Vein Acute Lower Leg Left ([facility]) 02/29/2020 Abnormal Stress Test 09/15/2016 Loss Hearing Sensorineural Bilateral 07/17/2010 SURGICAL HISTORY Past Surgical History: Procedure Laterality [...] M.D.; Location: [facility] FAMILY HISTORY Reviewed in chart SOCIAL HISTORY Social History Socioeconomic History Marital status: Tobacco Use Smoking status: Never Smokeless tobacco: Never Social Drivers of Health Food Insecurity: No Food Insecurity (11/15/2023) Hunger Vital Sign Worried About Running Out of Food in the Last Year: Never true Ran Out of Food in the Last Year: Never true Transportation Needs: No Transportation Needs (11/15/2023) PRAPARE - Transportation Lack of Transportation (Medical): No Lack of Transportation (Non-Medical): No Intimate Partner Violence: Not At Risk (11/15/2023) Humiliation, Afraid, Rape, and Kick questionnaire Fear of Current or Ex-Partner: No Emotionally Abused: No Physically Abused: No Sexually Abused: No Housing Stability: Low Risk (11/15/2023) Housing Stability Housing: Living Situation: I have a steady place to live Social History Substance and Sexual Activity Alcohol Use None Social History Substance and Sexual Activity Drug Use Not on file OBJECTIVE INITIAL VITAL SIGNS Initial Vitals [10/21/24 2011] Temperature 37 ??C Pulse Rate 74 Heart Rate Resp Blood Pressure 150/74 SpO2 97 % Pain Score 0 - No pain PHYSICAL EXAMINATION Constitutional: Nursing note and vitals reviewed. No distress. HENT: Mouth/Throat: Mucous membranes are moist. Eyes: Conjunctivae are normal. Cardiovascular: Edema: no edema noted Pulmonary/Chest: Effort normal. Abdominal: exhibits no distension. Genitourinary: Genitourinary Comments: Catheter appears intact, no evidence of gross abnormalities. Musculoskeletal: General: Normal range of motion. Neurological: Alert and oriented to person, place, and time. Skin: Skin is dry. No cyanosis. Psychiatric: He has a normal mood and affect. ED COURSE Final Diagnoses: as of 01/30/242043 Removal Or Exchange Catheter INTERVENTIONS Medications cefdinir capsule 300 mg (Omnicef) (has no administration in time range) LABS Labs Reviewed URINALYSIS WITH MICROSCOPIC IF INDICATED, U ECG RADIOLOGY No orders to display ASSESSMENT / PLAN ASSESSMENT/PLAN IMPRESSION AND PLAN Kalen Vega is a 83 y.o. male presents for evaluation of change to consistency and reduced amount of urine in his Tabares catheter, he otherwise is asymptomatic. On arrival emergency department vital signs are normal with no signs of acute sepsis, infectious concern or signs of distress. Plan for removal of his catheter as planned to be removed on Tuesday, less than 48 hours from now. We did offer for the patient to observed in the emergency department versus being discharged and coming back if he has any difficulty with voiding. We will send urine for culture, additionally will empirically cover with cefdinir for antibiotic coverage. Anticipation of outpatient follow up with the Urology on Tuesday. Reassessment: We did attempt to obtain urine sample, at this time we are unable to obtain any additional urine study therefore will empirically cover with antibiotic. Advised retesting of the patient's urine if he has continued or persistent symptoms. DIAGNOSIS Final diagnoses: [Z46.6] Removal Or Exchange Catheter ED DISCHARGE MEDS ED Prescriptions Medication Sig Dispense Start Date End Date Auth. Provider cefdinir (Omnicef) 300 mg capsule Take 1 capsule (300 mg total) by mouth 2 (two) times a day beforemorning and evening meals for 7 days. 14 capsule 01/30/2024 02/06/2024 Shawn De Luna M.D. DISPOSITION Home or Self Intermediate or Self Care Shawn De Luna M.D. 01/30/242045 Shawn De Luna M.D. 01/30/242136 documented in this encounter Plan of Treatment Upcoming Encounters Date Type Department Care Team (Late st Contact Info) Description 02/13/2024 11:45 AM EMPLOYEE RELATIONS CONSULTANT Nurse Only Department of Urology in [address] [phone] Burke Strauss M.D. [address] [place] [phone] Discharge Disposition: Home or Self Care 02/16/2024 11:00 AM EMPLOYEE RELATIONS CONSULTANT Office Visit Department of Urology in [address] [phone] Burke Strauss M.D. [address] [place] [phone] documented as of this encounter Visit Diagnoses Diagnosis Removal Or Exchange Catheter- Primary documented in this encounter Administered Medications Inactive Administered Medications - up to 3 most recent administrations Medication Order MAR Action Action Date Dose Rate Site cefdinir capsule 300 mg (Omnicef) 300 mg, oral, Once, On 01/30/24 at 2040, For 1 dose, Administer 2 hours before or 6 hours after taking magnesium, aluminum (antacids, laxatives) or calcium and iron supplements (multivitamins); may be taken with calcium or iron if given with food., Drug Monitoring Program: Pharmacist to adjust medication dosing based on indication and drug clearance factors., Indications: Lower UTI, catheterIndications:Lower UTI, catheter Given 01/30/2024 8:50 PM CDT 300 mg documented in this encounter Active and Recently Administered Medications Times are shown in CDT. Scheduled Medication Order 01/28/2024 01/29/2024 01/30/2024 cefdinir capsule 300 mg (Omnicef) (COMPLETED) 300 mg, oral, Once, On Tue01/30/24 at 2039, For 1 dose, Administer 2 hours before or 6 hours after taking magnesium, aluminum (antacids, laxatives) or calcium and iron supplements (multivitamins); may be taken with calcium or iron if given with food., Drug Monitoring Program: Pharmacist to adjust medication dosing based on indication and drug clearance factors., Indications: Lower UTI, catheter 2049 (Given - Provid er: Enrique Sandhu R.N.) documented in this encounter Care Teams Software Design Analyst Relationship Specialty Start Date End Date Elsewhere, Pcp PCP - General Internal Medicine 08/13/23 documented as of this encounter
--- OUTSIDE RECORDS SUMMARY | 2024-02-10 09:54 | XMS_ITS | Clinical Summary ---
Author Organization [facility] Address [address] [place] [address] Care Team Providers Care Apparel Embroidery Digitizer Name Role Phone Elsewhere, Pcp Primary Care Provider Unavailabl e Source Comments Patient records contain information from all sites at [facility]. For routine questions regarding patient records, call [phone] during business hours, M-F 8:00 AM - 5:00 PM Central Time. Record requests for emergency care only can be directed to [phone] at any time.[facility] Allergies No known active allergies Medications amLODIPine [...] minutes, take the second dose and call [phone] Active tamsulosin (FLOMAX) 0.4 mg 24 [...] evening meals for 7 days. 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 02/09/2024 10:30 AM CDT Office Visit Department of Urology in [address] [address] Burke Strauss M.D. Radiation Therapy Cystitis With Hematuria (Primary Dx); Primary Malignant Neoplasm Of Prostate (HCC); Nephrostomy Status Post (HCC) Discharge Disposition: Home or Self Care 02/01/2024 10:00 AM CDT Procedure visit Department of Urology in [address] [phone] Bershow, Burke, M.D. Rubi, Erika R, R.N. Retention Urinary Chronic Discharge Disposition: Home or Self Care 01/30/2024 7:57 PM CDT - 01/30/2024 9:03 PM CDT [facility] [address] [place] [phone] Shawn De Luna M.D. Removal Or Exchange Catheter (Primary Dx) Discharge Disposition: Home or Self Care 01/18/2024 Clinical Communication Department of Urology in [address] [address] Burke Strauss M.D. Communication (Questions on return visit with Dr. Strauss) 01/16/2024 Clinical Communication Department of Urology in [address] [address] Burke Strauss M.D. Communication (Follow up questions) 01/12/2024 8:30 AM CDT - 01/12/2024 9:52 AM CDT Hospital Encounter Department of Radiology in [address] [address] Ingrid Desai M.D. Chow, Andrew Z, M.D. Nephrostomy Status Post (HCC) (Primary Dx); Primary Malignant Neoplasm Of Prostate (HCC) Discharge Disposition: Home or Self Care 01/11/2024 10:18 AM CDT - 01/11/2024 11:59 PM CDT Hospital Encounter Department of Laboratory Medicine in [address] [address] Burke Strauss M.D. Retention Urinary Chronic Discharge Disposition: Home or Self Care 01/11/2024 10:00 AM CDT Office Visit Department of Urology in [address] [address] Burke Strauss M.D. Retention Urinary Chronic (Primary Dx); Radiation Therapy Cystitis With Hematuria; Primary Malignant Neoplasm Of Prostate (HCC); Nephrostomy Status Post (HCC) Discharge Disposition: Home or Self Care 01/11/2024 9:00 AM CDT Procedure visit Department of Urology in [address] [phone] Burke Strauss M.D. Factor, Piper L, R.N. Retention Urinary Chronic Discharge Disposition: Home or Self Care 01/11/2024 Clinical Communication Department of Radiology in [place] [phone] [place] [address] Ingrid Desai M.D. 01/09/2024 2:59 PM CDT - 01/09/2024 6:29 PM CDT [facility] [address] [place] [phone] Sergio Raza M.D. Nephrostomy Status Post (HCC) (Primary Dx) Discharge Disposition: Home or Self Care 01/09/2024 Documentation Department of Urology in [place], [place] [address] [place] [phone] Corin Ring M.D. 12/13/2023 9:15 AM CDT Nurse Only Department of Urology in [address] [phone] Burke Strauss M.D. Gray, Margaret A, L.P.N. Nurse Visit (Catheter Irrigation ) Discharge Disposition: Home or Self Care 12/08/2023 9:30 AM CDT Office Visit Department of Urology in [address] [address] Burke Strauss M.D. Retention Urinary Chronic (Primary Dx); Anemia; Anemia In Neoplastic Disease; Environmental Engineering Aide (Current) Anticoagulant Treatment Discharge Disposition: Home or Self Care 12/07/2023 12:19 PM CDT - 12/07/2023 11:59 PM CDT Hospital Encounter Department of Laboratory Medicine in [address] [address] Bershow, Burke, M.D. Anemia; Hematuria Gross; Retention Urinary Chronic Discharge Disposition: Home or Self Care 12/07/2023 10:30 AM CDT Office Visit Department of Urology in [address] [phone] Burke Strauss M.D. Hematuria Gross (Primary Dx); Radiation Therapy Cystitis With Hematuria; Anemia; Retention Urinary Chronic Discharge Disposition: Home or Self Care 11/30/2023 6:44 PM CDT - 11/30/2023 8:06 PM CDT [facility] [address] [place] [phone] Carmen Cherry M.D., M.P.H. Leakage Of Other Urinary Catheter Initial (HCC) (Primary Dx) Discharge Disposition: Home or Self Care 11/15/2023 10:40 AM CDT Ancillary Procedure Department of Wound Ostomy 11/14/2023 11:38 PM CDT - 11/17/2023 3:55 PM CDT Hospital Encounter [facility], Fifth Floor [address] [place] [address] Eliceo Guerrier M.D., Ph.D. Sylvie Álvarez M.B.BJonahS., M.D. Rashawn Vences M.D. Burkland, Carl B, M.D. Hematuria Gross (Primary Dx) Discharge Disposition: Home-Health Care [facility] 11/14/2023 10:44 AM CDT - 11/14/2023 10:23 PM CDT Emergency [facility] [address] [place] [phone] Sergio Raza M.D. Hematuria (Primary Dx); Malfunction Mechanical Urethral Catheter Initial (HCC) Discharge Disposition: [facility] 11/14/2023 Documentation Department of Urology in [address] [address] Sowmya Aviles, ARUN, C.N.P., M.S.N. 11/14/2023 Intake [facility] 11/10/2023 Clinical Communication Department of Urology in [address] [address] Burke Strauss M.D. Oncology records request from Last 3 Months Social History Tobacco Use Types Packs/Day Years Used Date Smoking Tobacco: Never Smokeless Tobacco: Never Tobacco Cessation:Counseling Given: Not Answered [facility] Utilities Answer Date Recorded In the past 12 months has e [employer], gas, oil, or water [employer] threatened to shut off services in your [...] st Contact Info) Description 02/13/2024 11:45 AM CUSTOM STUDIO COORDINATOR Nurse Only Department of Urology in [place] [address] [place] [address] Burke Strauss M.D. [address] [place] [phone] Discharge Disposition: Home or Self Care 02/16/2024 11:00 AM CUSTOM STUDIO COORDINATOR Office Visit Department of Urology in [place], [place] [address] [place] [address] Burke Strauss M.D. [address] [place] [phone] Health Maintenance Due Date Last Done Comments Office Visit for Blood Pressure Check / Re-check 1940 Zoster Vaccines (1 of 2) 1989 RSV vaccine - (32-36 weeks) or 60+ years (1 - 1-dose 75+ series) 2014 Depression Screening (Annual PHQ-2) 04/11/2023 COVID-19 Vaccine ( season) 2023 07/21/2023, 03/08/2023, 09/13/2022, Additional history exists Influenza Vaccine (#1) 2024 03/08/2023, 2021 Fasting Glucose for Diabetes Screening 01/10/2025 01/11/2024, 01/09/2024, 11/17/2023, Additional history exists DTaP,Tdap,and Td Vaccines (2 - Td or Tdap) 09/07/2026 09/07/2016 Pneumococcal vaccine (65+ years) Completed 07/21/2023 Fall Risk Screen (Annual) Completed 01/12/2024 IPV Vaccines Aged Out No longer eligi ble based on patient's age to complete this topic Medical Devices Implanted Type Area Administration Manager Device Identifier Shelf Expiration Date Model / Serial / Lot Clp Hrzn Ti 6 Clp Lg Orng - [id number] Implanted:Qt y: 1 on 08/15/2023 by Boubacar Brock M.D. at [facility] Hardware e.g. pins/screws /rods Abdomen [employer] [id number] 02/29/2028 [id number] / / [id number] Clp Hrzn Ti 6 Clp Lg Orng - [id number] Implanted:Qt y: 1 on 08/15/2023 by Boubacar Brock M.D. at [facility] Hardware e.g. pins/screws /rods Abdomen [employer] [id number] 02/29/2028 [id number] / / [id number] Clp Hrzn Ti 6 Clp Md Monty - [id number] Implanted:Qt y: 1 on 08/15/2023 by Boubacar Brock M.D. at [facility] Hardware e.g. pins/screws /rods Abdomen [employer] [id number] 03/13/2028 [id number] / / [id number] Clp Hrzn Ti 6 Clp Md Monty - [id number] Implanted:Qt y: 1 on 08/15/2023 by Boubacar Brock M.D. at [facility] Hardware e.g. pins/screws /rods Abdomen [employer] [id number] 03/21/2028 [id number] / / [id number] Stnt Uret Inl 6fx24 - [id number] Implanted:Qt y: 1 on 08/15/2023 by Jakob De Paz M.D. at [facility] Ureteral Stent N/A: Ureter [employer]ard [id number] 11/18/2027 [id number] / / [id number] Procedures Procedure Name Priority Date/Time Associated Diagnosis [...] medications. Patient education provided by a care merchandise flow team leader. Patient was ready to learn with no apparent learning barriers were identified. Post-procedure care explained; patient expressed understanding of the content. PROCEDURE DETAILS: Sedation: None. Sedation time: Not applicable. Estimated Blood Loss: Less than 10 mL. TECHNIQUE: Imaging guidance for catheter exchange: Fluoroscopy with permanent image storage Access side: Left Catheter: 10.2 Spanish 25 cm pigtail nephrostomy catheter Technique: The indwelling 10.2 Spanish catheter was injected with contrast. A guidewire was inserted through the catheter but was unable to advance the catheter back into the renal pelvis. Micropuncture was used to place a new wire in tandem with the catheter into the renal pelvis. The indwelling catheter was removed and exchanged for a new 10.2 Spanish catheter. A permanent image was saved to [...] medications. Patient education provided by a care merchandise flow team leader. Patient was ready to learn withno apparent learning barriers were identified. Post-procedure careexplained; patient expressed understanding of the content. PROCEDURE DETAILS: Sedation: None. Sedation time: Not applicable. Estimated Blood Loss: Less than 10 mL. TECHNIQUE: Imaging guidance for catheter exchange: Fluoroscopy with permanent imagestorage Access side: Left Catheter: 10.2 Spanish 25 cm pigtail nephrostomy catheter Technique: The indwelling 10.2 Spanish catheter was injected with contrast.A guidewire was inserted through the catheter but was unable to advancethe catheter back into the renal pelvis. Micropuncture was used to place anew wire in tandem with the catheter into the renal pelvis. The indwelling catheter was removed andexchanged for a new 10.2 Spanish catheter. A permanent image was saved toPACS. [...] M.D. LAB BLOOD ADD-ON Final Resu lt [facility] [address] [place] [address], [place] NPRG [facility] [address] [place] [address] * CT Abdomen Pelvis with IV Contrast [...] compatiblewith sclerotic metastases. us Sergio Raza M.D. IMPrieto CT PROCEDURES Final Resu lt * Hepatic [...] ADD-ON Final Resul t Performing Organization Address City/[facility]/ZIP Co de Phone Number [facility]NOTE 2] LAB [address] [place] [address], [address] [address] * (ABNORMAL) Lipase (01/09/2024 4:29 PM CDT) Lipase, P 12(L) 13 - 60 U/L 01/09/2024 4: 46 PM CDT NPRG Blood (Blood, Venous) 01/09/2024 4:29 PM CDT 01/09/2024 4:32 PM CDT Sergio Raza M.D. LAB BLOOD ADD-ON Final Resul t Performing Organization Address [facility] Co de Phone Number [facility]NOTE 2] LAB [address] [place] [address], [address] [address] * (ABNORMAL) Hemoglobin (12/07/2023 12:25 PM CDT) Only the most recent of2 resultswithin the time period is included. Hemoglobin 9.2(L) 13.2 - 16.6 g/dL 12/07/2023 12:33 PM CDT NPRG Blood (Blood, Venous) 12/07/2023 12:25 PM CDT 12/07/2023 12:27 PM CDT us Burke Strauss M.D. LAB BLOOD ADD-ON Final Resu lt Performing Organization Address City/[facility]/ZIP Co de Phone Number [facility]NOTE 2] LAB [address] [place] [address], [place] [address] [place] [address] * Creatinine with Estimated GFR (12/07/2023 12:25 [...] ADD-ON Final Resu lt Performing Organization Address [facility]/ZIP Co de Phone Number [facility]NOTE 2] LAB [address] [place] [address], [address] [address] * (ABNORMAL) CBC without Differential (11/17/2023 7:24 [...] ADD-ON Final Re sult Performing Organization Address City/[facility]/ZIP Co de Phone Number [facility] [address] [place] [address] * Glucose, POCT (11/17/2023 6:45 AM CDT) Glucose, POCT, B 107 70 - 140 mg/dL 11/17/2023 6:45 AM CDT MKTO Blood 11/17/2023 6:45 AM CDT 11/17/2023 7:03 AM CDT us Generic Rals LAB POCT ORDERABLES-MANUAL Final Result Performing Organization Address [facility] Co de Phone Number [facility] [address] [place] [address] * (ABNORMAL) CBC with Differential, Blood (11/16/2023 [...] M.D. LAB BLOOD ADD-ON Final Resul t [facility] [address] [place] [address], [facility] MKTO [facility] in [place] [address] [place] [address] * (ABNORMAL) Comprehensive Metabolic Panel (11/16/2023 6:25 [...] CDT Rashawn Vences M.D. LAB BLOOD ADD-ON Final Resul t Performing Organization Address [facility]/ZIP Co de Phone Number [facility] [address] [place] [address] * Transfuse Red Blood Cells : (11/15/2023 6:35 PM CDT) us Madelyn Cesar D.O. BLOOD TRANSFUSION ORDERABLES F inal Result * Testing Location (11/15/2023 11:09 AM CDT) Testing Location [facility] DEFAULT 11/15/2023 11:47 AM CDT MK Blood 11/15/2023 11:0 9 AM CDT 11/15/2023 11:47 AM CDT us Sergio Raza M.D. LAB BLOOD BANK TEST ORDERABL ES Final Result Performing Organization Address [facility] Co de Phone Number [facility] [address] [place] [address] * Coccyx-Wound Ostomy Image Exam (11/15/2023 10:40 [...] PROCE DURES Final Result Performing Organization Address City/[facility] Co de Phone Number [facility] NA * ECG 12 Lead (11/15/2023 6:47 AM CDT) Ventricular Rate ECG/Min 65 BPM MUSE DE Interval 144 ms MUSE QRSD Interval 76 ms MUSE QT Interval 430 ms MUSE QTC Interval 447 ms MUSE P [place] -7 degrees MUSE R [place] 9 degrees MUSE T Wave [place] 19 degrees MUSE 11/15/2023 6:47 AM CDT [...] to determine due to color interference Specific [place] SEE COMMENT 1.001 - 1.035 11/15/2023 8:03 AM CDT MKTO Comment:Unable to determine due to color interference Urobilinogen SEE COMMENT 0.2 - 1.0 mg/dL 11/15/2023 8:03 AM CDT MKTO Comment:Unable to determine due to color interference Urine (Urine, Midstream) 11/15/2023 6:25 AM CDT 11/15/2023 6:34 AM CDT Sylvie Wright M.D. LAB URINE ORDER JUAN M Final Result [facility] [address] [place] [address], [facility] [address] * (ABNORMAL) Microscopic Automated (11/15/2023 6:25 AM [...] JUAN M Final Result Performing Organization Address [facility] Co de Phone Number [facility] [address] [place] [address], [place] [address] * Bacterial Culture, Aerobic + Susceptibility, Urine (11/15/2023 6:24 AM CDT) Urine Culture Urogenital microbiota, susceptibilities not performed per laboratory criteria. 11/16/2023 11:36 AM CDT [facility] Urine (Urine, Indwelling Catheter) 11/15/2023 6:24 AM CDT 11/15/2023 9:29 AM CDT Comment:Specimen Source Site : Urine us Mark Marmolejo APRN.N.P., M.S. LAB MICROBIOLOGY - GENERAL ORDERABLES Final Result Performing Organization Address [facility] Co de Phone Number [facility] [address] [place] [address], [place] [address] * CT Abdomen Pelvis without IV Contrast [...] ORDERABL ES Final Result Performing Organization Address City/[facility] Co de Phone Number [facility]NOTE 2] LAB [address] [place] [address], [facility] NPRG [address] [address] * Type and Screen (with Reflex Antibody [...] ORDERABL ES Final Result Performing Organization Address [facility]/ZIP Co de Phone Number [facility]NOTE 2[facility] [address] [place] [address], [facility] NPRG [place] [address] [place] [address] from Last 3 Months Insurance MEDICARE MEDICA Advance Directives For more information, please contact: [phone] * Full Code (Latest Code Status on [...] Answer Comments Full Code: Discussed Care Teams Apparel Embroidery Digitizer Relationship Specialty Start Date End Date Elsewhere, Pcp PCP - General Internal Medicine 08/13/23
--- OUTSIDE RECORDS SUMMARY | 2024-02-10 09:54 | XMS_ITS ---
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 11/15/2023 Atherosclerotic Heart Diseas e Of [place] Coronary Artery Without Angina Pectoris 11/15/2023 Overview (11/15/2023): stent placements 2017 Complication Procedure Initial 11/15/2023 Deficiency Iron 11/15/2023 Hyperlipidemia 11/15/2023 Hypertension Essential Primary 11/15/2023 Enterprise Cloud Architect Current Use Of Oth er Agents Affecting [...] On Elapsed Days Session Dose Total Dose [id number] 04/28/2020 32 300 cGy 6,000 cGy Lifetime Dose Tracking * Chemical Lifetime Dose Automatic Entry Manual Entr y Radiation 58.71 mGy 58.71 mGy 0 mGy Fluoro Time 6.905 minutes 6.905 minutes 0 minutes DAP (uGy-m2) 1,232.05 uGy-m2 1,232.05 uGy-m2 0 uGy-m2 Resolved Problems Problem Noted Date Diagnosed Date Resolved Date Hematuria Gross 08/31/2023 11/17/2023
--- OUTSIDE RECORDS SUMMARY | 2024-02-10 09:54 | XMS_ITS | Encounter Summary ---
Author Organization [facility] Address [address] [place] [address] Care Team Providers Care Junior Accounting Clerk Name Role Phone Elsewhere, Pcp Primary Care Provider Unavailabl e Reason for Referral * Outpatient (Routine) - Closed Specialty Diagnoses / Procedures Referred By Contac t Referred To Contact Diagnoses Retention Urinary Chronic Procedures URO Urethral cath removal & voiding trial (UCO/VT) Wili Sosa M.D. [address] [place] [phone] Phone: tel: fax: [facility] Region Referral ID Status Reason Start Date Expiration Date Visits Re quested Visits Authorized [id number] Closed 01/23/2024 01/22/2025 1 1 Reason for Visit * Reason Onset Date Comments Communication 01/18/2024 Questions on ret urn visit with Dr. Sosa Encounter Details Date Type Department Care Team (Latest Contact Info) Description 01/18/2024 Clinical Communication Department of Urology in [address] [address] Wili Sosa M.D. [address] [place] [phone] Communication (Questions on return visit with Dr. [...] [facility] place to live 11/15/2023 Sex [...] exchange with placement of a new 10.2 Danish 25 cm pigtail nephrostomy tube into the [...] st Contact Info) Description 02/13/2024 11:45 AM ELECTRIC DISTRIBUTION ENGINEER Nurse Only Department of Urology in [place], [place] [address] [place] [address] Wili Sosa M.D. [address] [place] [address] Discharge Disposition: Home or Self Care 02/16/2024 11:00 AM ELECTRIC DISTRIBUTION ENGINEER Office Visit Department of Urology in [place] [address] [place] [address] Wili Sosa M.D. [address] [place] [phone] Scheduled Orders Name Type Priority Associated Diagnoses Orde r Schedule URO Urethral cath removal & voiding trial (UCO/VT) Procedure Routine Retention Urinary Chronic Expected: 02/01/2024, Expires: 04/24/2025 documented as of this encounter Visit Diagnoses Diagnosis Retention Urinary Chronic- Primary documented in this encounter Care Teams Junior Accounting Clerk Relationship Specialty Start Date End Date Elsewhere, Pcp PCP - General Internal Medicine 08/13/23 documented as of this encounter
--- OUTSIDE RECORDS SUMMARY | 2024-02-10 09:55 | XMS_ITS | Encounter Summary ---
Author Organization [facility] Address [address] [place] [address] Care Team Providers Care Relay Telegrapher Name Role Phone Elsewhere, Pcp Primary Care Provider Unavailabl e Encounter Details Date Type Department Care Team (Late st Contact Info) Description 01/09/2024 Documentation Department of Urology in [place], [place] [address] [place] [address] Corin Ring M.D. [address] [place] [address] Social History Tobacco Use Types Packs/Day Years Used Date Smoking Tobacco: Never Smokeless Tobacco: Never [facility] Utilities Answer Date Recorded In the past 12 months has [facility] [place], gas, oil, or water [employer] threatened to shut off services in your [...] your living situation today? I have a [facility] place to live 11/15/2023 Sex and Gender Information Value Date Recorded Sex Assigned at Not on file Legal Sex Male 10:48 AM CDT Gender Identity Not on file Sexual Orientation Not on file documented as of this encounter Plan of Treatment Upcoming Encounters Date Type Department Care Team (Late st Contact Info) Description 02/13/2024 11:45 AM GLAZE WIPER Nurse Only Department of Urology in [place] [address] [place] [phone] Burke Stra[place] M.D. [address] [place] [phone] Discharge Disposition: Home or Self Care 02/16/2024 11:00 AM GLAZE WIPER Office Visit Department of Urology in [place], [place] [address] [place] [phone] Burke [place] M.D. [facility] [place] [address] documented as of this encounter Visit Diagnoses Diagnosis Radiation Therapy Cystitis With Hematuria- Primary documented in this encounter Care Teams Relay Telegrapher Relationship Specialty Start Date End Date Elsewhere, Pcp PCP - General Internal Medicine 08/13/23 documented as of this encounter
--- OUTSIDE RECORDS SUMMARY | 2024-02-10 09:55 | XMS_ITS | Encounter Summary ---
Author Organization [facility] Address [address] [place] [address] Care Team Providers Care Fire Alarm Installer Name Role Phone Elsewhere, Pcp Primary Care Provider Unavailabl e Encounter Details Date Type Department Care Team (Latest Contact Info) Description 12/07/2023 12:19 PM CDT - 12/07/2023 11:59 PM CDT Hospital Encounter Department of Laboratory Medicine in [place], [place] [address] [place] [id number] Burke Strauss M.D. [facility] [place] [phone] Anemia; Hematuria Gross; Retention Urinary Chronic Discharge [...] st Contact Info) Description 02/13/2024 11:45 AM MARKETING SERVICES SPECIALIST Nurse Only Department of Urology in [address] [phone] Burke Strauss M.D. [address] [place] [phone] Discharge Disposition: Home or Self Care 02/16/2024 11:00 AM MARKETING SERVICES SPECIALIST Office Visit Department of Urology in [address] [phone] Burke Strauss M.D. [facility] [place] [address] documented as of this encounter Procedures Procedure [...] ADD-ON Final Resu lt Performing Organization Address City/[facility]/ZIP Co de Phone Number [facility] [address] [place] [address], [facility] [place] [address] [place] [address] * (ABNORMAL) Hemoglobin (12/07/2023 12:25 PM CDT) Hemoglobin 9.2(L) 13.2 - 16.6 g/dL 12/07/2023 12:33 PM CDT NPRG Blood (Blood, Venous) 12/07/2023 12:25 PM CDT 12/07/2023 12:27 PM CDT us Burke Strauss M.D. LAB BLOOD ADD-ON Final Resu lt Performing Organization Address City/[facility]/ZIP Co de Phone Number [facility] [address] [place] [address], [place] [facility] [address] [place] [place] [address] documented in this encounter Visit Diagnoses Diagnosis Anemia Hematuria Gross Retention Urinary Chronic documented in this encounter Care Teams Fire Alarm Installer Relationship Specialty Start Date End Date Elsewhere, Pcp PCP - General Internal Medicine 08/13/23 documented as of this encounter
--- OUTSIDE RECORDS SUMMARY | 2024-02-10 09:55 | XMS_ITS | Encounter Summary ---
Author Organization [facility] Address [address] [place] [address] Care Team Providers Care Cable Installer Repairer Name Role Phone Elsewhere, Pcp Primary Care Provider Unavailabl e Reason for Referral * Outpatient (Routine) - Authorized Specialty Diagnoses / Procedures Referred By Contac t Referred To Contact Diagnoses Hematuria Gabe Neal M.D. [address] [place] [address] Phone: tel: fax: Referral ID Status Reason Start Date Expiration Date V isits Requested Visits Authorized [id number] Authorized 11/17/2023 05/18/2025 1 1 Encounter Details Date Type Department Care Team (Late st Contact Info) Description 11/14/2023 11:38 PM CDT - 11/17/2023 3:55 PM CDT Hospital Encounter [facility], Fifth Floor [address] [place] [address] Eliceo Guerrier M.D., Ph.D. [address] [facility] [place] [phone] Sylvie Álvarez M.B.B.S., M.D. [address] [place] [phone] Rashawn Vences M.D. [address] [place] [phone] Gabe Buckley M.D. [address] [place] [phone] Smith Peter (Primary Dx) Discharge Disposition: Home-Health Care Svc Social History Tobacco Use Types Packs/Day Years Used Date Smoking Tobacco: Never Smokeless Tobacco: Never [facility] Utilities Answer Date Recorded In the past 12 months has [facility] [employer], gas, oil, or water [employer] threatened to shut off services in [...] DISCHARGE SUMMARY BRIEF OVERVIEW Discharge Hospital: Hospital: [facility] Discharge Provider: Gabe Buckley M.D. Primary Care Providers: Dr. 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 Cesar Mccollum to discuss restarting OUTPATIENT FOLLOW UP Scheduled Appointments 12/07/2023 10:15 AM [facility] MULTI SPECIALTY NURSE 01 NPNC; URO [...] filter and chronic pressure wounds presented to [place] 11/14/23 gross hematuria including around his indwelling [...] discussed with Dr. Gabe Rivas DO. PGY-1 [facility] Family Medicine Residency [place] Cosigned by Gabe Buckley M.D. at 11/17/2023 [...] male who was admitted to [facility] 11/14/2023 due to Hematuria Gross [R31.0]. Patient was accompanied by son, Kar. This junior technical writer finalized arrangements for resumption of home health care services. 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 INTERVENTION This junior technical writer sent a service reconnection, including resumption of care order, to resumption of home health care services to [facility] [place] as the fax number matches the fax [...] Muscle Mass: Normal Fluid Accumulation: Absent Reduced Order Processing Manager Strength: Not applicable This is in the [...] male who was admitted to [facility] 11/14/2023 due to Hematuria Gross [R31.0]. Patient was accompanied by daughter (Mindy) and son (Kar). This junior technical writer continues to assist in home health care reconnection. 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 INTERVENTION Patient's daughter, Mindy, provided this junior technical writer with contact information for Doreen Javier, nurse customer care assistant for [facility]; [phone]. This junior technical writer left Doreen a voicemail, requesting [...] bag -monitor CMP for kidney function -continue CIG[employer] P[employer]ER [employer] SORTER tamsulosin -continue C[employer]ORTER enzalutamide -urine culture, per urology # Coronary artery disease without angina pectoris, status post 6 stents # History of DVTs, status post IVC filter # Hyperlipidemia Is on both Plavix and Xarelto at home. -start Xarelto 11/16/2023 so response can be monitored while hospitalized -continue C[employer]ORTER amlodipine -continue [employer] SORTER rosuvastatin -continue C[employer] SORTER metoprolol # Chronic Pressure Wound, Coccyx -continue wound care -offloading as much as possible Non-severe (moderate) Malnutrition (11/15/23) The patient meets the ASPEN Criteria of malnutrition based on: Energy Intake: Less than 75% of estimated energy requirement for greater than or equal to 1 month Interpretation of Weight Loss: 7.5% 3 months Body Fat: Normal Muscle Mass: Normal Fluid Accumulation: Absent Reduced Order Processing Manager Strength: Not applicable This is in the [...] Gabe Buckley M.D. Candelaria Rivas DO. PGY-1 [facility] Medicine Residency [place] Cosigned by Gabe Buckley M.D. 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 Medicine Service * Candelaria Rivas D.O. [...] recommendations -monitor CMP for kidney function -continue CIG[employer] SORTER tamsulosin -continue CIG[employer]ER [employer] SORTER enzalutamide -urine culture, per urology # Coronary artery disease without angina pectoris, status post 6 stents # History of DVTs, status post IVC filter # Hyperlipidemia Is on both Plavix and Xarelto at home. Urology recommendations on restarting blood thinners. -may consider restarting one or both on 11/16/2023 so response can be monitored while hospitalized -continue CIG[employer]ER [employer] SORTER amlodipine -continue C[employer]ER [employer] SORTER rosuvastatin -continue CIG[employer]ER [employer] SORTER metoprolol # Chronic Pressure Wound, Coccyx -continue wound care -offloading as much as possible Non-severe (moderate) Malnutrition (11/15/23) The patient meets the ASPEN Criteria of malnutrition based on: Energy Intake: Less than 75% of estimated energy requirement for greater than or equal to 1 month Interpretation of Weight Loss: 7.5% 3 months Body Fat: Normal Muscle Mass: Normal Fluid Accumulation: Absent Reduced Order Processing Manager Strength: Not applicable This is in the [...] Rashawn Vences M.D. Bethany Reyhaus, DO. PGY-1 [facility] Residency [place] Cosigned by Rashawn Vences M.D. at 11/15/2023 [...] other issues. He showed up in the [facility] room yesterday with complaints of a [...] and visits for hematuria. Patient presented at [place] yesterday because of bleeding around his [place] [...] vomiting, no abdominal pain. Patient presented at [facility] where urology was contacted, manual bladder irrigation [...] anemia, hemoglobin now 8.2. Patient presented to [facility] ED because of bleeding around his [place] catheter. At [place], patient had manual bladder irrigation with normal [...] Best Practice Advisory Instant O Dietitian consult ([facility]) Referring Provider: Best Practice Advisory Instant [...] had lost 28lbs during his stay in [place] as he was NPO for12 days then [...] Muscle Mass: Normal Fluid Accumulation: Absent Reduced Order Processing Manager Strength: Not applicable This is in the [...] 84.1 kg BMI (Calculated): 26.6 kg/m?? 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 Has another son (Kar) and a daughter (Mindy). Support System: spouse and children Spirituality/Baptism/Cultural Factors: None History: No Highest Level of [...] Cooperative, Oriented Communication: Talks, Understands speaking, Understands German Shopping: Appropriate to age/development Medication Management: Independent Housekeeping: Appropriate to age/development Meal Prep: Appropriate to age/development Assistive Devices: Eyeglasses, Hearing aid(s) Agency Name: [facility] Provided: shelter once weekly for wound care, PT, social work, Makenzie customer care assistant Transportation: Support from family Baseline Services/Resources Primary care clinic and provider: ELSEWHERE, PCP Anticipated Needs Functional Status: Tasks appropriate to patient's age/development, Transportation use (drive car, use taxi/bus) Assistive Devices: Eyeglasses, Hearing aid(s) Services/Resources: Home health Agency Name: [facility] Provided: shelter once weekly for wound care, PT, social work, DarwinRN customer care assistant Does the patient need discharge transport arranged?: No Anticipated Discharge Destination: Home-Health Care Svc OBJECTIVE Substance Abuse no symptoms Mental Health Mental Health History: Patient reports no mental health history Patient reports no current concerns Mental Health Treatment History No history of Psychiatric Treatment noted Suicide Risk and Safety Risk Assessment: C-SSRS Short Version: [place] Suicide Severity Rating Scale (Do this one [...] a wound clinic the other day. This junior technical writer spoke to intake with [facility] however the only information provided is that patient is served [facility] location and receives jail, physical therapy, and social work and the fax number for discharge paperwork was provided. Interventions Psychosocial assessment completed. Provided supportive services. Provided education regarding the role of social work. Plan It is anticipated patient will return home with family and resume services through [facility]. Mark GardinerSHilario. 11/15/2023 * Jerri Toledo R.N., C.W.C.N., [facility] - 11/15/2023 10:54 AM CDTAssociated [...] and visits for hematuria. Patient presented at [place] yesterday because of bleeding around his [place] [...] vomiting, no abdominal pain. Patient presented at [facility] where urology was contacted, manual bladder irrigation with normal saline was performed, and patient was started on CBI. Patient transferred to [place] for further management. WOUND ASSESSMENT: Wound Type: Pressure Injury [facility] Pressure Injury Staging: Stage 3 Wound Location: Coccyx Wound Orientation: Mid Wound Tunnel/Induration: Length 1 cm, Width 0.5 cm, and Depth 0.3 cm. Wound Bed Tissue: Red and Granulation tissue 100% Leslee-Wound Skin: Blanchable erythema, Maceration, and [place] PLAN: COCCYX: DAILY 1. Cleanse wound with [...] sliding down in chair. Please contact [facility] RNs if you have any question or concerns regarding wound care. Jerri Toledo R.N., NIKOSON at [phone] Starla Méndez R.N., CWCN at [phone] * Zachery Tanner APRN, C.N.P., M.S. - [...] follows with Medical Oncology Dr. Tan in [place], [place]. Right hydronephrosis and right atrophic kidney [...] 08/30. Currently undergoing outpatient hyperbaric O2 in [facility]. Mr. Vega currently admitted to [facility] in the setting of recurrent gross hematuria. He wasseen in evaluation at [facility] in the setting of concern [...] in comparison to historical imaging. Ultimately [address] was placed and patient was hand irrigated and initiated on CBI.Patient was transferred to [facility] for ongoing management. Urinalysis 11/15/2023 with greater [...] undergoing outpatient HBO (hyperbaric oxygenation therapy) in [facility]. Recommend to continue HBO in the outpatient [...] hematuria. Outpatient appointment scheduled on 12/07/2023 in [place] with Urology. Could consider discussion about catheter removal/formal voiding trial in the outpatient setting as to limit catheter irritation/potential infection risk contributing to hematuria. Significant pyuria on urinalysis in the setting of his gross hematuria would recommend urine culture. 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 Tan in [place], [place]. Per subjective report today undetectable PSA. [...] discussed with Dr. Valdez. Zachery Tanner APRN PLASTIC PROCESS TECHNICIAN Cosigned by Manav Valdez M.D. at 11/15/2023 [...] Summary: Pt is a direct admit from [facility] ED. He has chronic indwelling catheter, with prostate cancer history. He noticed urine was bloody red. While being seen in [place], 3 waycatheter was inserted and CBI started. [...] filter and chronic pressure wounds presented to [facility] 11/14/23 gross hematuria including around his indwelling [...] restarted on Xarelto on 11/16/2023. There was nofurther bleeding after restarting Xarelto. Discussed holding Plavix until follow-up. Patient was stable and discharged home. documented in this encounter Plan of Treatment Upcoming Encounters Date Type Department Care Team (Late st Contact Info) Description 02/13/2024 11:45 AM BARREL SCRAPER Nurse Only Department of Urology in [place], [place] [address] [place] [address] Burke Strauss M.D. [address] [place] [address] Discharge Disposition: Home or Self Care 02/16/2024 11:00 AM BARREL SCRAPER Office Visit Department of Urology in [place] [address] [place] [address] Burke Strauss M.D. [facility] [place] [address] Pending Results Name Type Priority Associated Diagnoses Date /Time Prepare Red Blood Cells, 1 Units Blood Bank Routine 11/14/2023 11:09 AM CDT Scheduled Referrals Name Type Priority Associated Diagnoses Orde r Schedule Non-[facility] referral Outpatient Referral Routine Hematuria Gross Ordered: [...] CBC without Differential (11/17/2023 7:24 AM CDT) Pathologist [facility] Hemoglobin 9.5(L) 13.2 - 16.6 g/dL 11/17/2023 [...] ADD-ON Final Re sult Performing Organization Address City/[facility]/ZIP Co de Phone Number [facility] [address] [place] [phone], [facility] MKTO [facility] in [place] [address] [place] [address] * (ABNORMAL) Basic Metabolic Panel (11/17/2023 7:24 AM CDT) Pathologist [facility] Potassium, P 4.3 3.6 - 5.2 mmol/L [...] D.O. LAB BLOOD ADD-ON Final Re sult [facility] [address] [place] [address], [address] [address] * Glucose, POCT (11/17/2023 6:45 AM CDT) Glucose, POCT, B 107 70 - 140 mg/dL 11/17/2023 6:45 AM CDT MKTO Blood 11/17/2023 6:45 AM CDT 11/17/2023 7:03 AM CDT Generic [facility] POCT ORDERABLES-MANUAL Final Result [facility] [address] [place] [address], [address] [address] * (ABNORMAL) Hemoglobin (11/16/2023 4:43 PM CDT) [facility] Hemoglobin 9.2(L) 13.2 - 16.6 g/dL 11/16/2023 5:13 PM CDT TO Blood (Blood, Venous) 11/16/2023 4:43 PM CDT 11/16/2023 5:10 PM CDT Madelyn Cesar D.O. LAB BLOOD ADD-ON Final Result [facility] [address] [place] [address], [place] [address] * (ABNORMAL) Comprehensive Metabolic Panel (11/16/2023 6:25 [...] M.D. LAB BLOOD ADD-ON Final Resul t [facility] [address] [place] [address], [facility] in [place] [address] [place] [address] * (ABNORMAL) CBC with Differential, Blood (11/16/2023 [...] M.D. LAB BLOOD ADD-ON Final Resul t [facility] [address] [place] [address], [place] [facility] in [place] [address] [place] [address] * Transfuse Red Blood Cells : (11/15/2023 6:35 PM CDT) us Madelyn Cesar D.O. BLOOD TRANSFUSION ORDERABLES F inal Result * Transfuse Red Blood Cells : , 1 Units (11/15/2023 6:35 PM CDT) us Madelyn Cesar [...] M.D. LAB BLOOD ADD-O N Final Result [facility] [address] [place] [address], [facility] [place] [address] * (ABNORMAL) CBC with Differential, Blood (11/15/2023 [...] M.D. LAB BLOOD ADD-O N Final Result Performing Organization Address City/State/[facility] Co de Phone Number [facility] [address] [place] [address], [facility] [place] [address] * ECG 12 Lead (11/15/2023 6:47 AM CDT) Ventricular Rate ECG/Min 65 BPM MUSE TN Interval 144 ms MUSE QRSD Interval 76 ms MUSE QT Interval 430 ms MUSE QTC Interval 447 ms MUSE P [place] -7 degrees MUSE R [place] 9 degrees MUSE T Wave [place] 19 degrees MUSE 11/15/2023 6:47 AM CDT [...] ECG ORDERABLES Final Result Performing Organization Address City/[facility] Co de Phone Number MUSE [...] JUAN M Final Result Performing Organization Address City/[facility] Co de Phone Number [facility] [address] [place] [address], [facility] in [place] [address] [place] [address] * (ABNORMAL) Urinalysis with Microscopic if Indicated [...] to determine due to color interference Specific [place] SEE COMMENT 1.001 - 1.035 11/15/2023 8:03 AM CDT MKTO Comment:Unable to determine due to color interference Urobilinogen SEE COMMENT 0.2 - 1.0 mg/dL 11/15/2023 8:03 AM CDT MKTO Comment:Unable to determine due to color interference Urine (Urine, Midstream) 11/15/2023 6:25 AM CDT 11/15/2023 6:34 AM CDT us Sylvie Wright M.D. LAB URINE ORDER JUAN M Final Result [facility] [address] [place] [address], [address] [address] * Bacterial Culture, Aerobic + Susceptibility, Urine (11/15/2023 6:24 AM CDT) Urine Culture Urogenital microbiota, susceptibilities not performed per laboratory criteria. 11/16/2023 11:36 AM CDT [facility] Urine (Urine, Indwelling Catheter) 11/15/2023 6:24 AM CDT 11/15/2023 9:29 AM CDT Comment:Specimen Source Site : Urine us Zachery Tanner APRN C.N.P., M.S. 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 Do NOT crush, chew or open capsule. 010 (Given - Provider: Nuvia Ocasio R.N.)2010 [...] R.N.) documented in this encounter Care Teams Cable Installer Repairer Relationship Specialty Start Date End Date Elsewhere, Pcp PCP - General Internal Medicine 08/13/23 documented as of this encounter
--- OUTSIDE RECORDS SUMMARY | 2024-02-10 09:55 | XMS_ITS | Encounter Summary ---
Author Organization [facility] Address [address] [place] [address] Care Team Providers Care Scalemaker Name Role Phone Elsewhere, Pcp Primary Care Provider Unavailabl e Reason for Referral * Outpatient (Routine) - Closed Specialty Diagnoses / Procedures Referred By Leyla t Referred To Contact Radiology Diagnoses Nephrostomy Status Post (HCC) Procedures IR Nephrostomy Tube Exchange Left Ingrid Desai M.D. [address] [place] [phone] Phone: tel: fax: [facility] Region Referral ID Status Reason Start Date Expiration Date Visits Re quested Visits Authorized [id number] Closed 01/11/2024 01/10/2025 1 1 Encounter Details Date Type Department Care Team (Late st Contact Info) Description 01/11/2024 Clinical Communication Department of Radiology in [address] [address] Ingrid Desai M.D. [address] [place] [phone] Social History Tobacco Use Types Packs/Day Years Used Date Smoking Tobacco: Never Smokeless Tobacco: Never [facility] Utilities Answer Date Recorded In the [...] your living situation today? I have a [facility] to live 11/15/2023 Sex and Gender Information Value Date Recorded Sex Assigned at Not on file Legal Sex Male 10:48 AM CDT Gender Identity Not on file Sexual Orientation Not on file documented as of this encounter Plan of Treatment Upcoming Encounters Date Type Department Care Team (Late st Contact Info) Description 02/13/2024 11:45 AM SENIOR BI DEVELOPER Nurse Only Department of Urology in [place], [place] [address] [place] [address] Burke Strauss M.D. [address] [place] [address] Discharge Disposition: Home or Self Care 02/16/2024 11:00 AM SENIOR BI DEVELOPER Office Visit Department of Urology in [place], [place] [address] [place] [address] Burke Strauss M.D. [address] [place] [address] documented as of this encounter Results * [...] medications. Patient education provided by a care support team assoc. Patient was ready to learn with no apparent learning barriers were identified. Post-procedure care explained; patient expressed understanding of the content. PROCEDURE DETAILS: Sedation: None. Sedation time: Not applicable. Estimated Blood Loss: Less than 10 mL. TECHNIQUE: Imaging guidance for catheter exchange: Fluoroscopy with permanent image storage Access side: Left Catheter: 10.2 Tuvaluan 25 cm pigtail nephrostomy catheter Technique: The indwelling 10.2 Tuvaluan catheter was injected with contrast. A guidewire was inserted through the catheter but was unable to advance the catheter back into the renal pelvis. Micropuncture was used to place a new wire in tandem with the catheter into the renal pelvis. The indwelling catheter was removed and exchanged for a new 10.2 Tuvaluan catheter. A permanent image was saved to [...] medications. Patient education provided by a care support team assoc. Patient was ready to learn withno apparent learning barriers were identified. Post-procedure careexplained; patient expressed understanding of the content. PROCEDURE DETAILS: Sedation: None. Sedation time: Not applicable. Estimated Blood Loss: Less than 10 mL. TECHNIQUE: Imaging guidance for catheter exchange: Fluoroscopy with permanent imagestorage Access side: Left Catheter: 10.2 Tuvaluan 25 cm pigtail nephrostomy catheter Technique: The indwelling 10.2 Tuvaluan catheter was injected with contrast.A guidewire was inserted through the catheter but was unable to advancethe catheter back into the renal pelvis. Micropuncture was used to place anew wire in tandem with the catheter into the renal pelvis. The indwelling catheter was removed andexchanged for a new 10.2 Tuvaluan catheter. A permanent image was saved toPACS. [...] pigtail back into the renal pelvis. Ingrid [place] IR PROCEDURES Final Result documented in this encounter Visit Diagnoses Diagnosis Nephrostomy Status Post (HCC)- Primary Nephrostomy Status Post (HCC)- Primary Primary Malignant Neoplasm Of Prostate (HCC) documented in this encounter Care Teams Scalemaker Relationship Specialty Start Date End Date Elsewhere, Pcp PCP - General Internal Medicine 08/13/23 documented as of this encounter
--- OUTSIDE RECORDS SUMMARY | 2024-02-10 09:55 | XMS_ITS | Encounter Summary ---
Author Organization [facility] Address [address] [place] [address] Care Team Providers Care Hydraulic Design Engineer Name Role Phone Elsewhere, Pcp Primary Care Provider Unavailabl e Reason for Referral * Outpatient (Routine) - Closed Specialty Diagnoses / Procedures Referred By Leyla rosenthal Referred To Contact UrologBurke Roberts M.D. [address] [place] [phone] Phone: tel: fax: [facility] Referral ID Status Reason Start Date Expiration Date Visits Re quested Visits Authorized [id number] Closed 12/07/2023 06/07/2025 1 1 Reason for Visit * Reason Comments Follow-up Discuss jon cathet er * Outpatient (Routine) - Closed Specialty Diagnoses / Procedures Referred By Leyla rosenthal Referred To Contact Burke Lucero M.D. [address] [place] [phone] Phone: tel: fax: [facility] Region Referral ID Status Reason Start Date Expiration Date Visits Re quested Visits Authorized [id number] Closed 11/09/2023 05/10/2025 1 1 Encounter Details Date Type Department Care Team (Late st Contact Info) Description 12/07/2023 10:30 AM CDT Office Visit Department of Urology in [place], [place] [address] [place] [address] Burke Strauss M.D. [address] [place] [phone] Hematuria Gross (Primary Dx); Radiation Therapy Cystitis With Hematuria; Anemia; Retention Urinary Chronic Discharge Disposition: Home or Self Care Social History Tobacco Use Types Packs/Day Years Used Date Smoking Tobacco: Never Smokeless Tobacco: Never [facility] [employer] Answer Date Recorded In the past 12 months has [facility] [employer], gas, oil, or water [employer] threatened to shut off services in your [...] living situation today? I have a [facility] place to live 11/15/2023 Sex and [...] sterile technique anew 22 Fr. (Ref # [id number]) Silicone 3- way catheter placed with assistance [...] was inadvertently cut. He currently has a22 Syriac silicone three-way catheter. He will return tomorrow [...] st Contact Info) Description 02/13/2024 11:45 AM COAL HAULER OPERATOR Nurse Only Department of Urology in [address] [address] Burke Strauss M.D. [address] [place] [phone] Discharge Disposition: Home or Self Care 02/16/2024 11:00 AM COAL HAULER OPERATOR Office Visit Department of Urology in [address] [address] Burke Strauss M.D. [address] [place] [phone] Scheduled Referrals Name Type Priority Associated Diagnoses [...] ADD-ON Final Resu lt Performing Organization Address City/Va Hospital/ZIP Co de Phone Number [facility] [address] [place] [address], [place] [facility] [place] [address] [place] [address] * (ABNORMAL) Hemoglobin (12/07/2023 12:25 PM CDT) Hemoglobin 9.2(L) 13.2 - 16.6 g/dL 12/07/2023 12:33 PM CDT [facility] Blood (Blood, Venous) 12/07/2023 12:25 PM CDT 12/07/2023 12:27 PM CDT us Burke Strauss M.D. LAB BLOOD ADD-ON Final Resu lt Performing Organization Address City/Va Hospital/ZIP Co de Phone Number [facility] [address] [place] [address], [place] [facility] [place] [address] [address] [place] [address] documented in this encounter Visit Diagnoses Diagnosis Hematuria Gross- Primary Radiation Therapy Cystitis With Hematuria Anemia Retention Urinary Chronic documented in this encounter Care Teams Hydraulic Design Engineer Relationship Specialty Start Date End Date Elsewhere, Pcp PCP - General Internal Medicine 08/13/23 documented as of this encounter
--- OUTSIDE RECORDS SUMMARY | 2024-02-10 09:55 | XMS_ITS | Encounter Summary ---
Author Organization [facility] Address [address] [place] [address] Care Team Providers Care Practice Clinician Name Role Phone Elsewhere, Pcp Primary Care Provider Unavailabl e Reason for Referral * Outpatient (Routine) - Closed Specialty Diagnoses / Procedures Referred By Leyla rosenthal Referred To Contact Diagnoses Retention Urinary Chronic Procedures URO Urethral cath fill / remove / voiding trial (fill / pull) Burke Strauss M.D. [address] [place] [phone] Phone: tel: fax: [facility] Referral ID Status Reason Start Date Expiration Date Visits Re quested Visits Authorized [id number] Closed 01/11/2024 01/10/2025 1 1 Reason for Visit * Reason Comments Follow-up Retention * Outpatient (Routine) - Closed Specialty Diagnoses / Procedures Referred By Leyla rosenthal Referred To Contact Urology Burke Strauss M.D. [address] [place] [phone] Phone: tel: fax: [facility] [place] Region Referral ID Status Reason Start Date Expiration Date Visits Re quested Visits Authorized [id number] Closed 12/14/2023 06/14/2025 1 1 Encounter Details Date Type Department Care Team (Late st Contact Info) Description 01/11/2024 10:00 AM CDT Office Visit Department of Urology in [place], [place] [address] [place] [address] Burke Strauss M.D. [address] [place] [address] Retention Urinary Chronic (Primary Dx); Radiation Therapy Cystitis With Hematuria; Primary Malignant Neoplasm Of Prostate (HCC); Nephrostomy Status Post (HCC) Discharge Disposition: Home or Self Care Social History Tobacco Use Types Packs/Day Years Used Date Smoking Tobacco: Never Smokeless Tobacco: Never [facility] Utilities Answer Date Recorded In the past 12 months has health system [employer], gas, oil, or water [employer] threatened to shut off services in your [...] have a [facility] place to live 11/15/2023 Sex and [...] August 2023. This ultimately required cystotomy at [facility] in September 2023. He also has [...] Of Prostate (HCC) 4. Nephrostomy Status Post ([facility]) Orders Placed This Encounter [...] st Contact Info) Description 02/13/2024 11:45 AM EXTRACTION OPERATOR Nurse Only Department of Urology in [place] [address] [place] [address] Burke Strauss M.D. [address] [place] [phone] Discharge Disposition: Home or Self Care 02/16/2024 11:00 AM EXTRACTION OPERATOR Office Visit Department of Urology in [place] [address] [place] [address] Burke Strauss M.D. [address] [place] [phone] Scheduled Orders Name Type Priority Associated Diagnoses [...] M.D. LAB BLOOD ADD-ON Final Resu lt [facility] [address] [place] [address], [facility] NPRG [facility] [address] [place] [address] documented in this encounter Visit Diagnoses Diagnosis Retention Urinary Chronic- Primary Radiation Therapy Cystitis With Hematuria Primary Malignant Neoplasm Of Prostate (HCC) Nephrostomy Status Post (HCC) documented in this encounter Care Teams Practice Clinician Relationship Specialty Start Date End Date Elsewhere, Pcp PCP - General Internal Medicine 08/13/23 documented as of this encounter
--- OUTSIDE RECORDS SUMMARY | 2024-02-10 09:55 | XMS_ITS | Encounter Summary ---
Author Organization [facility] Address [address] [place] [address] Care Team Providers Care Saw Repairer Name Role Phone Elsewhere, Pcp Primary Care Provider Unavailabl e Reason for Visit * Reason Comments Urinary Catheter Change Pt reports leaki ng from part of three way catheter, believes he may have nicked it with a scissors. Encounter Details Date Type Department Care Team (Late st Contact Info) Description 11/30/2023 6:44 PM CDT - 11/30/2023 8:06 PM CDT Emergency [facility] [address] [place] [phone] Carmen Cherry M.D., M.P.H. [address] [place] [phone] Leakage Of Other Urinary Catheter Initial (HCC) [...] Everywhere. * Indwelling Urinary Catheter Care Adult Zika-od-Wzor (Gibraltarian) documented in this encounter Medications at Time [...] st Contact Info) Description 02/13/2024 11:45 AM DINKEY DRIVER Nurse Only Department of Urology in [place] [address] [place] [address] Burke Strauss M.D. [address] [place] [phone] Discharge Disposition: Home or Self Care 02/16/2024 11:00 AM DINKEY DRIVER Office Visit Department of Urology in [address] [phone] Burke Strauss M.D. [address] [place] [phone] documented as of this encounter Visit Diagnoses [...] (Due) documented in this encounter Care Teams Saw Repairer Relationship Specialty Start Date End Date Elsewhere, Pcp PCP - General Internal Medicine 08/13/23 documented as of this encounter
--- OUTSIDE RECORDS SUMMARY | 2024-02-10 09:55 | XMS_ITS | Encounter Summary ---
Author Organization [facility] Address [address] [place] [address] Care Team Providers Care Gas Truck Driver Name Role Phone Elsewhere, Pcp Primary Care Provider Unavailabl e Reason for Visit * Reason Comments Nurse Visit Patient here for mon thly scheduled catheter exchange * Outpatient (Routine) - Authorized Specialty Diagnoses / Procedures Referred By Leyla t Referred To Contact Diagnoses Retention Urinary Chronic Procedures URO Urethral cath change (UCC) Burke Strauss M.D. [address] [place] [phone] Phone: tel: fax: [facility] Region Referral ID Status Reason Start Date Expiration Date V isits Requested Visits Authorized [id number] Authorized 11/09/2023 11/08/2024 15 15 Encounter Details Date Type Department Care Team (Latest Contact Info) Description 01/11/2024 9:00 AM CDT Procedure visit Department of Urology in [place], [place] [address] [place] [phone] Burke Strauss M.D. [address] [place] [phone] Keli Denton R.N. [address] [place] [phone] Retention Urinary Chronic Discharge Disposition: Home or [...] catheter change. Son, Kar present for appointment. Kalen reports having a [...] proceed with catheter change utilizing a [address] Strauss. Patient and son in agreement with plan. The balloon was deflated of 30 ml and the catheter was slowly removed. After prepping the patient with betadine a new 20 divehi straight tip urethral catheter (Ref # [id number]) was inserted using sterile technique. Urine returned [...] st Contact Info) Description 02/13/2024 11:45 AM MANAGER PRODUCT MARKETING Nurse Only Department of Urology in [place] [address] [place] [address] Burke Strauss M.D. [address] [place] [phone] Discharge Disposition: Home or Self Care 02/16/2024 11:00 AM MANAGER PRODUCT MARKETING Office Visit Department of Urology in [place] [address] [place] [address] Burke Strauss M.D. [address] [place] [phone] documented as of this encounter Visit Diagnoses Diagnosis Retention Urinary Chronic documented in this encounter Care Teams Gas Truck Driver Relationship Specialty Start Date End Date Elsewhere, Pcp PCP - General Internal Medicine 08/13/23 documented as of this encounter
--- OUTSIDE RECORDS SUMMARY | 2024-02-10 09:55 | XMS_ITS | Encounter Summary ---
Author Organization [facility] Address [address] [place] [address] Care Team Providers Care Slaughterer Religious Ritual Name Role Phone Elsewhere, Pcp Primary Care Provider Unavailabl e Reason for Referral * Outpatient (Routine) - Authorized Specialty Diagnoses / Procedures Referred By Leyla rosenthal Referred To Contact Radiology Diagnoses Nephrostomy Status Post (HCC) Primary Malignant Neoplasm Of Prostate (HCC) Procedures IR Nephrostomy Tube Exchange Left Naseem Brock M.D. [address] [place] [phone] Phone: tel: fax: [facility] Region Referral ID Status Reason Start Date Expiration Date V isits Requested Visits Authorized [id number] Authorized 01/12/2024 01/11/2025 1 1 * Outpatient (Routine) - Closed Specialty Diagnoses / Procedures Referred By Leyla rosenthal Referred To Contact Radiology Diagnoses Nephrostomy Status Post (HCC) Procedures IR Nephrostomy Tube Exchange Left Ingrid Desai M.D. [address] [place] [phone] Phone: tel: fax: [facility] Referral ID Status Reason Start Date Expiration Date Visits Re quested Visits Authorized [id number] Closed 01/11/2024 01/10/2025 1 1 Reason for Visit * Outpatient (Routine) - Closed Specialty Diagnoses / Procedures Referred By Contac t Referred To Contact Radiology Diagnoses Nephrostomy Status Post (HCC) Procedures IR Nephrostomy Tube Exchange Left Ingrid Desai M.D. [address] [place] [phone] Phone: tel: fax: [facility] Referral ID Status Reason Start Date Expiration Date Visits Re quested Visits Authorized [id number] Closed 01/11/2024 01/10/2025 1 1 Encounter Details Date Type Department Care Team (Latest Contact Info) Description 01/12/2024 8:30 AM CDT - 01/12/2024 9:52 AM CDT Hospital Encounter Department of Radiology in [place], [place] [address] [place] [phone] Ingrid Desai M.D. [address] [place] [phone] Naseem Brock M.D. [address] [place] [phone] Nephrostomy Status Post (HCC) (Primary Dx); Primary Malignant Neoplasm Of Prostate (HCC) Discharge Disposition: Home or Self Care Social History Tobacco Use Types Packs/Day Years Used Date Smoking Tobacco: Never Smokeless Tobacco: Never [facility] Utilities Answer Date Recorded In the past [address] [facility] [employer], gas, oil, or water [employer] threatened to shut off services in your [...] exchange with placement of a new 10.2 Fijian 25 cm pigtail nephrostomy tube into the renal pelvis. Please see Radiology Report for full details. TECHNOLOGY SALES REPRESENTATIVE Mars Brock M.D. SPECIMENS REMOVED None. ESTIMATED [...] st Contact Info) Description 02/13/2024 11:45 AM TITLE CAMERA OPERATOR Nurse Only Department of Urology in [address] [phone] Burke Strauss M.D. [address] [place] [phone] Discharge Disposition: Home or Self Care 02/16/2024 11:00 AM TITLE CAMERA OPERATOR Office Visit Department of Urology in [address] [phone] Burke Strauss M.D. [address] [place] [phone] Scheduled Orders Name Type Priority Associated Diagnoses [...] medications. Patient education provided by a care associate team physician. Patient was ready to learn with no apparent learning barriers were identified. Post-procedure care explained; patient expressed understanding of the content. PROCEDURE DETAILS: Sedation: None. Sedation time: Not applicable. Estimated Blood Loss: Less than 10 mL. TECHNIQUE: Imaging guidance for catheter exchange: Fluoroscopy with permanent image storage Access side: Left Catheter: 10.2 Fijian 25 cm pigtail nephrostomy catheter Technique: The indwelling 10.2 Fijian catheter was injected with contrast. A guidewire was inserted through the catheter but was unable to advance the catheter back into the renal pelvis. Micropuncture was used to place a new wire in tandem with the catheter into the renal pelvis. The indwelling catheter was removed and exchanged for a new 10.2 Fijian catheter. A permanent image was saved to [...] medications. Patient education provided by a care associate team physician. Patient was ready to learn withno apparent learning barriers were identified. Post-procedure careexplained; patient expressed understanding of the content. PROCEDURE DETAILS: Sedation: None. Sedation time: Not applicable. Estimated Blood Loss: Less than 10 mL. TECHNIQUE: Imaging guidance for catheter exchange: Fluoroscopy with permanent imagestorage Access side: Left Catheter: 10.2 Fijian 25 cm pigtail nephrostomy catheter Technique: The indwelling 10.2 Fijian catheter was injected with contrast.A guidewire was inserted through the catheter but was unable to advancethe catheter back into the renal pelvis. Micropuncture was used to place anew wire in tandem with the catheter into the renal pelvis. The indwelling catheter was removed andexchanged for a new 10.2 Fijian catheter. A permanent image was saved [facility]. The catheter was connected to a [...] Starting on Nani 01/12/24 at 0914, Intra-Op 09 (Given - Provid er: Naseem Brock M.D. - Comment: left flank)09 (Given - Provider: Naseem Brock M.D.) documented in this encounter Care Teams Slaughterer Religious Ritual Relationship Specialty Start Date End Date Elsewhere, Pcp PCP - General Internal Medicine 08/13/23 documented as of this encounter
--- OUTSIDE RECORDS SUMMARY | 2024-02-10 09:55 | XMS_ITS | Encounter Summary ---
Author Organization [facility] Address [address] [place] [address] Care Team Providers Care Cork Wirer Name Role Phone Elsewhere, Pcp Primary Care Provider Unavailabl e Reason for Referral * Outpatient (Routine) - Closed Specialty Diagnoses / Procedures Referred By Leyla rosenthal Referred To Contact Urology Wili Sosa M.D. [address] [place] [phone] Phone: tel: fax: [facility] Referral ID Status Reason Start Date Expiration Date Visits Re quested Visits Authorized [id number] Closed 12/14/2023 06/14/2025 1 1 Reason for Visit * Reason Comments Nurse Visit Catheter Irrigation * Outpatient (Routine) - Closed Specialty Diagnoses / Procedures Referred By Leyla rosenthal Referred To Contact Urology Diagnoses Retention Urinary Chronic Wili Sosa M.D. [address] [place] [phone] Phone: tel: fax: [facility] Referral ID Status Reason Start Date Expiration Date Visits Re quested Visits Authorized [id number] Closed 12/08/2023 06/08/2025 1 1 Encounter Details Date Type Department Care Team (Late st Contact Info) Description 12/13/2023 9:15 AM CDT Nurse Only Department of Urology in [place], [place] [address] [place] [phone] Wili Sosa M.D. [address] [place] [phone] Latonia Dumont L.P.N. Nurse Visit (Catheter Irrigation ) Discharge Disposition: Home or Self Care Social History Tobacco Use Types Packs/Day Years Used Date Smoking Tobacco: Never Smokeless Tobacco: Never [facility] Utilities Answer Date Recorded In the past 12 months has [facility], gas, oil, or water [employer] threatened to shut off services in [...] st Contact Info) Description 02/13/2024 11:45 AM EXCELSIOR MACHINE OPERATOR Nurse Only Department of Urology in [place], [place] [address] [place] [address] Wili Sosa M.D. [address] [place] [phone] Discharge Disposition: Home or Self Care 02/16/2024 11:00 AM EXCELSIOR MACHINE OPERATOR Office Visit Department of Urology in [place] [address] [place] [address] Wili Sosa M.D. [address] [place] [phone] Scheduled Referrals Name Type Priority Associated Diagnoses Orde r Schedule Urology office visit (clinic) General Outpatient Referral Routine Expected: 01/11/2024 (Approximate), Expires: 03/14/2025 documented as of this encounter Visit Diagnoses Diagnosis Retention Urinary Chronic documented in this encounter Care Teams Cork Wirer Relationship Specialty Start Date End Date Elsewhere, Pcp PCP - General Internal Medicine 08/13/23 documented as of this encounter
--- OUTSIDE RECORDS SUMMARY | 2024-02-10 09:55 | XMS_ITS | Encounter Summary ---
Author Organization [facility] Address [address] [place] [address] Care Team Providers Care Farm Equipment Engine Mechanic Name Role Phone Elsewhere, Pcp Primary [...] CDT - 01/09/2024 6:29 PM CDT Emergency [facility] [address] [place] [phone] Sergio Raza M.D. [address] [place] [phone] Nephrostomy Status Post (HCC) (Primary Dx) Discharge [...] the nephrostomy tube occurs, please present to [facility], on the recommendations of the urology team, [...] and stabilizing suture placement Sergio Raza M.D. 01/09/24 2018 documented in this encounter Plan of Treatment Upcoming Encounters Date Type Department Care Team (Late st Contact Info) Description 02/13/2024 11:45 AM CORONER TRANSPORT TECHNICIAN Nurse Only Department of Urology in [address] [phone] Burke Strauss M.D. [address] [place] [phone] Discharge Disposition: Home or Self Care 02/16/2024 11:00 AM CORONER TRANSPORT TECHNICIAN Office Visit Department of Urology in [address] [address] Burke Strauss M.D. [address] [place] [phone] documented as of this encounter Procedures Procedure [...] LAB BLOOD ADD-ON Final Resul t [facility] [address] [place] [address], [facility] [address] [place] [address] * Hepatic Function Panel (01/09/2024 4:29 PM [...] LAB BLOOD ADD-ON Final Resul t [facility] [address] [place] [address], [facility] [address] [place] [address] * (ABNORMAL) Basic Metabolic Panel (01/09/2024 4:29 [...] M.D. LAB BLOOD ADD-ON Final Resul t [facility] [address] [place] [address], [facility] [address] [place] [address] documented in this encounter Visit Diagnoses Diagnosis [...] oral then dilute in 900 mL water 1650 (Given - Provid er: Trevor Lopez.T.(R)(CT), R.T.(R)) sodium chloride 0.9 % flush 100 mL (COMPLETED) 100 mL, intravenous, Once in imaging, line care, for CT Exam, Starting on Tue01/09/24 at 1651, For 1 dose 1652 (Given - Provid er: Trevor Lopez.T.(R)(CT), R.T.(R)) sodium chloride 0.9 % injection 10 mL (COMPLETED) 10 mL, intravenous, Once in imaging, line care, Prior to CT, Starting on Tue01/09/24 at 1651, For 1 dose 1651 (Given - Provid er: Brandy Sahni, R.T.(R)(CT), R.T.(R)) sodium chloride 0.9 % injection 2-10 [...] 1613 documented in this encounter Care Teams Farm Equipment Engine Mechanic Relationship Specialty Start Date End Date Elsewhere, Pcp PCP - General Internal Medicine 08/13/23 documented as of this encounter
--- OUTSIDE RECORDS SUMMARY | 2024-02-10 09:55 | XMS_ITS | Encounter Summary ---
Author Organization [facility] Address [address] [place] [address] Care Team Providers Care Engineering Specialist Name Role Phone Elsewhere, Pcp Primary Care Provider Unavailabl e Reason for Referral * Outpatient (Routine) - Closed Specialty Diagnoses / Procedures Referred By Leyla rosenthal Referred To Contact Urology Diagnoses Retention Urinary Chronic Burke Strauss M.D. [address] [place] [phone] Phone: tel: fax: [facility] Referral ID Status Reason Start Date Expiration Date Visits Re quested Visits Authorized [id number] Closed 12/08/2023 06/08/2025 1 1 Reason for Visit * Reason Comments Follow-up Irrigation of cathet er * Outpatient (Routine) - Closed Specialty Diagnoses / Procedures Referred By Leyla rosenthal Referred To Contact Urology Burke Strauss M.D. [address] [place] [phone] Phone: tel: fax: [facility] Region Referral ID Status Reason Start Date Expiration Date Visits Re quested Visits Authorized [id number] Closed 12/07/2023 06/07/2025 1 1 Encounter Details Date Type Department Care Team (Latest Contact Info) Description 12/08/2023 9:30 AM CDT Office Visit Department of Urology in [place], [place] [address] [place] [phone] Burke Strauss M.D. [facility] [place] [phone] Retention Urinary Chronic (Primary Dx); Anemia; Anemia In Neoplastic Disease; Nursing Home (Current) Anticoagulant Treatment Discharge Disposition: Home or Self Care Social History Tobacco Use Types Packs/Day Years Used Date Smoking Tobacco: Never Smokeless Tobacco: Never [facility] [employer] Experienceities Answer Date Recorded In the past 12 months has e [employer], gas, oil, or water [employer] threatened to shut off services in your [...] as of this encounter Progress Notes * Burek Strauss M.D. - 12/08/2023 9:30 AM CDT [...] 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 [address] [place] [phone] Discharge Disposition: Home or Self Care 02/16/2024 11:00 AM TESTING DIRECTOR Office Visit Department of Urology in [address] [phone] Burke Strauss M.D. 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
--- OUTSIDE RECORDS SUMMARY | 2024-02-10 09:55 | XMS_ITS | Encounter Summary ---
Author Organization [facility] Address [address] [place] [address] Care Team Providers Care Mortgage Closing Clerk Name Role Phone Elsewhere, Pcp Primary Care Provider Unavailabl e Encounter Details Date Type Department Care Team (Latest Contact Info) Description 01/11/2024 10:18 AM CDT - 01/11/2024 11:59 PM CDT Hospital Encounter Department of Laboratory Medicine in [place], [place] [address] [place] [phone] Burke Strauss M.D. [facility] [place] [phone] Retention Urinary Chronic Discharge Disposition: Home or [...] st Contact Info) Description 02/13/2024 11:45 AM HOB MACHINE OPERATOR Nurse Only Department of Urology in [address] [phone] Burke Strauss M.D. [address] [place] [phone] Discharge Disposition: Home or Self Care 02/16/2024 11:00 AM HOB MACHINE OPERATOR Office Visit Department of Urology in [address] [phone] Burke Strauss M.D. [address] [place] [phone] documented as of this encounter Procedures Procedure [...] ADD-ON Final Resu lt [facility] [address] [place] [address], [place] [facility] [address] [place] [address] documented in this encounter Visit Diagnoses Diagnosis Retention Urinary Chronic documented in this encounter Care Teams Mortgage Closing Clerk Relationship Specialty Start Date End Date Elsewhere, Pcp PCP - General Internal Medicine 08/13/23 documented as of this encounter
--- OUTSIDE RECORDS SUMMARY | 2024-02-10 09:56 | XMS_ITS | Encounter Summary ---
Author Organization [facility] Address [address] [place] [address] Care Team Providers Care Marine Geologist Name Role Phone Elsewhere, Pcp Primary Care Provider Unavailabl e Encounter Details Date Type Department Care Team (Late st Contact Info) Description 11/15/2023 10:40 AM CDT Ancillary Procedure Department of Wound Ostomy Social History Tobacco Use Types Packs/Day Years Used Date Smoking Tobacco: Never Smokeless Tobacco: Never [facility] Utilities Answer Date Recorded In the past 12 months has th e electric, gas, oil, or water [employer] threatened to shut off services in your [...] [facility] 11/15/2023 Sex and Gender Information Value Date Recorded Sex Assigned at Not on file Legal Sex Male 10:48 AM CDT Gender Identity Not on file Sexual Orientation Not on file documented as of this encounter Plan of Treatment Upcoming Encounters Date Type Department Care Team (Late st Contact Info) Description 02/13/2024 11:45 AM KLYSTROM TUBE TESTER Nurse Only Department of Urology in [place] [address] [place] [address] Burke Strauss M.D. [address] [place] [phone] Discharge Disposition: Home or Self Care 02/16/2024 11:00 AM KLYSTROM TUBE TESTER Office Visit Department of Urology in [place] [address] [place] [address] Burke Strauss M.D. [address] [place] [phone] documented as of this encounter Procedures Procedure [...] NON RAD IMAGING PROCE DURES Final Result IIMS NA documented in this encounter Visit Diagnoses Not on filedocumented in this encounter Care Teams Marine Geologist Relationship Specialty Start Date End Date Elsewhere, Pcp PCP - General Internal Medicine 08/13/23 documented as of this encounter
--- OUTSIDE RECORDS SUMMARY | 2024-02-10 09:56 | XMS_ITS | Encounter Summary ---
Author Organization [facility] Address [address] [place] [address] Care Team Providers Care Breakfast Bar Attendant Name Role Phone Elsewhere, Pcp Primary [...] st Contact Info) Description 02/13/2024 11:45 AM MACHINE TECHNICIAN Nurse Only Department of Urology in [place] [address] [place] [address] Burke Strauss M.D. [address] [place] [phone] Discharge Disposition: Home or Self Care 02/16/2024 11:00 AM MACHINE TECHNICIAN Office Visit Department of Urology in [place] [address] [place] [address] Burke Strauss M.D. 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
--- OUTSIDE RECORDS SUMMARY | 2024-02-10 09:56 | XMS_ITS | Encounter Summary ---
Author Organization [facility] Address [address] [place] [address] Care Team Providers Care Insurance Loss Adjuster Name Role Phone Elsewhere, Pcp Primary Care Provider Unavailabl e Encounter Details Date Type Department Care Team (Late st Contact Info) Description 11/09/2023 Clinical Communication Department of Urology in [place], [place] [address] [place] [phone] Burke Strauss M.D. [address] [place] [phone] Social History Tobacco Use Types Packs/Day Years [...] st Contact Info) Description 02/13/2024 11:45 AM FARM IMPLEMENT MECHANIC Nurse Only Department of Urology in [place] [address] [place] [address] Burke Strauss M.D. [facility] [place] [phone] Discharge Disposition: Home or Self Care 02/16/2024 11:00 AM FARM IMPLEMENT MECHANIC Office Visit Department of Urology in [address] [phone] Burke Strauss M.D. [address] [place] [phone] documented as of this encounter Visit Diagnoses Not on filedocumented in this encounter Care Teams Insurance Loss Adjuster Relationship Specialty Start Date End Date Elsewhere, Pcp PCP - General Internal Medicine 08/13/23 documented as of this encounter
--- OUTSIDE RECORDS SUMMARY | 2024-02-10 09:56 | XMS_ITS | Encounter Summary ---
Author Organization [facility] Address [address] [place] [address] Care Team Providers Care Stage Technician Name Role Phone Elsewhere, Pcp Primary Care Provider Unavailabl e Reason for Visit * Reason Onset Date Comments Oncology records request 11/10/2023 Encounter Details Date Type Department Care Team (Latest Contact Info) Description 11/10/2023 Clinical Communication Department of Urology in [place], [place] [address] [place] [phone] Burke Strauss M.D. [address] [place] [phone] Oncology records request Social History Tobacco Use [...] Information was filled out and faxed to [facility], Dr. Mireya Tan clinic per Dr. Strauss. Will wait for these to come through and notify Dr. Strauss for his review. [facility] documented in this encounter Plan of Treatment Upcoming Encounters Date Type Department Care Team (Late st Contact Info) Description 02/13/2024 11:45 AM ANIMAL TRAINER Nurse Only Department of Urology in [address] [phone] Burke Strauss M.D. [address] [place] [phone] Discharge Disposition: Home or Self Care 02/16/2024 11:00 AM ANIMAL TRAINER Office Visit Department of Urology in [address] [address] Burke Strauss M.D. [address] [place] [phone] documented as of this encounter Visit Diagnoses Not on filedocumented in this encounter Care Teams Stage Technician Relationship Specialty Start Date End Date Elsewhere, Pcp PCP - General Internal Medicine 08/13/23 documented as of this encounter
--- OUTSIDE RECORDS SUMMARY | 2024-02-10 09:56 | XMS_ITS | Encounter Summary ---
Author Organization [facility] Address [address] [place] [address] Care Team Providers Care Under Ground Miner Name Role Phone Elsewhere, Pcp Primary Care Provider Unavailabl e Encounter Details Date Type Department Care Team (Latest Contact Info) Description 08/30/2023 Intake [facility] Social History Tobacco Use Types Packs/Day Years Used Date Smoking Tobacco: Never Smokeless Tobacco: Never [facility] Utilities Answer Date Recorded In [...] st Contact Info) Description 02/13/2024 11:45 AM ASBESTOS SIDING INSTALLER Nurse Only Department of Urology in [place] [address] [place] [address] Burke Strauss M.D. [address] [place] [phone] Discharge Disposition: Home or Self Care 02/16/2024 11:00 AM ASBESTOS SIDING INSTALLER Office Visit Department of Urology in [place] [address] [place] [address] Burke Strauss M.D. 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
--- OUTSIDE RECORDS SUMMARY | 2024-02-10 09:56 | XMS_ITS | Encounter Summary ---
Author Organization [facility] Address [address] [place] [address] Care Team Providers Care Regional Sales Engineer Name Role Phone Elsewhere, Pcp Primary Care Provider Unavailabl e Reason for Referral * Outpatient (Routine) - Closed Specialty Diagnoses / Procedures Referred By Leyla rosenthal Referred To Contact Urology Burke Strauss M.D. [address] [place] [phone] Phone: tel: fax: [facility] Referral ID Status Reason Start Date Expiration Date Visits Re quested Visits Authorized [id number] Closed 11/09/2023 05/10/2025 1 1 * Outpatient (Routine) - Authorized Specialty Diagnoses / Procedures Referred By Leyla rosenthal Referred To Contact Diagnoses Retention Urinary Chronic Procedures URO Urethral cath change (UCC) Burke Strauss M.D. [address] [place] [phone] Phone: tel: fax: [facility] Region Referral ID Status Reason Start Date Expiration Date V isits Requested Visits Authorized [id number] Authorized 11/09/2023 11/08/2024 15 15 Reason for Visit * Reason Comments Consult Discuss catheter thomas nges * Appointment Request (Routine) - Closed Specialty Diagnoses / Procedures Referred By Leyla t Referred To Contact Urology Referral ID Status Reason Start Date Expiration Date Visits Re quested Visits Authorized [id number] Closed 10/27/2023 10/26/2024 1 1 Encounter Details Date Type Department Care Team (Late st Contact Info) Description 11/09/2023 11:00 AM CDT Office Visit Department of Urology in [place], [place] [address] [place] [phone] Burke Strauss M.D. [address] [place] [phone] Primary Malignant Neoplasm Of Prostate (HCC) (Primary Dx); Retention Urinary Chronic; Hematuria Gross Discharge Disposition: Home or Self Care Social History Tobacco Use Types Packs/Day Years Used Date Smoking Tobacco: Never Smokeless Tobacco: Never [facility] [employer] Answer Date Recorded In the past 12 months has [facility] [place], gas, oil, or water [employer] threatened to shut off services in your [...] presents to establish care from [facility]. He has multiple urologic issues including [...] the past few days. Original plan from [facility] was to exchange his left nephrostomy tube [...] Metastatic prostate cancer is being managed by [facility], Dr. Mireya Tan. Release of [...] an antegrade nephrogram through Interventional Radiology in [place] prior to nephrostomy tube removal. documented in this encounter Plan of Treatment Upcoming Encounters Date Type Department Care Team (Late st Contact Info) Description 02/13/2024 11:45 AM MARBLE WORKER Nurse Only Department of Urology in [address] [address] Burke Strauss M.D. [address] [place] [phone] Discharge Disposition: Home or Self Care 02/16/2024 11:00 AM MARBLE WORKER Office Visit Department of Urology in [address] [address] Burke Strauss M.D. [address] [place] [phone] Scheduled Orders Name Type Priority Associated Diagnoses [...] Gross documented in this encounter Care Teams Regional Sales Engineer Relationship Specialty Start Date End Date Elsewhere, Pcp PCP - General Internal Medicine 08/13/23 documented as of this encounter
--- OUTSIDE RECORDS SUMMARY | 2024-02-10 09:56 | XMS_ITS | Encounter Summary ---
Author Organization [facility] Address [address] [place] [address] Care Team Providers Care Sales Analyst Name Role Phone Elsewhere, Pcp Primary [...] st Contact Info) Description 02/13/2024 11:45 AM MODEL BUILDER DISPLAY Nurse Only Department of Urology in [place] [address] [place] [address] Burke Strauss M.D. [address] [place] [phone] Discharge Disposition: Home or Self Care 02/16/2024 11:00 AM MODEL BUILDER DISPLAY Office Visit Department of Urology in [place] [address] [place] [address] Burke Strauss M.D. [address] [place] [phone] documented as of this encounter Visit Diagnoses Not on filedocumented in this encounter Care Teams Sales Analyst Relationship Specialty Start Date End Date Elsewhere, Pcp PCP - General Internal Medicine 08/13/23 documented as of this encounter
--- OUTSIDE RECORDS SUMMARY | 2024-02-10 09:56 | XMS_ITS | Data Portability ---
Author Organization [facility], [facility] Address [address] [place] [address] Care Team Providers Care Foreign Exchange Clerk Name Role Phone MASOUD SAUER Primary Care Provider Assessment No assessment recorded. Plan of Treatment Reminders Order Date Submit Date Provider Last Modified By Organization Details Last Modified Time Details Appointments None recorded . Lab urinalys is, dipstick 2023 024 [email or web address] [facility], [address] [place], [address], 4 15:08:54 culture, urine 2023 024 [facility], [address], [place], [address], 4 10:11:11 Referral None recorded . Procedures None recorded . Surgeries cystosco py with ureteral stent exchange (SURG) 2021 022 [email or web address] Not available 16:50:47 cystosco py with ureteral stent exchange (SURG) 2021 022 [email or web address] Not available 15:46:30 Imaging None recorded . Medication Orders Myrbetri q 50 mg tablet,e xtended release 2021 022 ED[id number], [address] [place], [place], [phone], 2 17:50:02 Bactrim DS 800 mg-160 mg tablet 2023 024 [email or web address] [facility] #[id number], [address] [place], [place], [phone], 16:19:28 Patient TargetsNo targets recorded. Patient InstructionsNo [...] for provi sydni revie w. Not Available [facility] [address], [place], [address], 06/25/2023 10:11:11 06/23/19 24 06/23/2023 urina lysis , dipst ick Color-Status Red Not Available [facility] [address], [place], [address], 06/23/2023 15:08:10 06/23/19 24 06/23/2023 urina lysis , dipst ick pH-Status 7.5 Not Available [facility] [address], [place], [address], 06/23/2023 15:08:10 06/23/19 24 06/23/2023 urina lysis , dipst ick Protein-Stat us >=9.0 Not Available [facility] [address], [place], [address], 06/23/2023 15:08:10 06/23/19 24 06/23/2023 urina lysis , dipst ick Nitrates-Sta tus negati ve Not Available [facility] [address], [place], [address], 06/23/2023 15:08:10 06/23/19 24 06/23/2023 urina lysis , dipst ick Blood-Status Large Not Available [facility] [address], [place], [address], 06/23/2023 15:08:10 06/23/19 24 06/23/2023 urina lysis , dipst ick Leuko-Status Negati ve Not Available [facility] [address], [place], [address], 06/23/2023 15:08:10 06/23/19 24 06/23/2023 urina lysis , dipst ick Specimen Type Voided Not Available [facility] [address], [place], [address], 06/23/2023 15:08:10 07/04/19 24 07/01/2023 CT, abdom en + pelvi s, w/o contr ast No observ ation record ed. [email or web address] [facility] [address], [place], [address], 09/01/2023 14:40:29 07/18/19 24 07/18/2023 XR, kidne y + urete r + bladd er No observ ation record ed. [email or web address] [facility] [address], [place], [address], 07/22/2023 15:56:19 Result Notes None recorded. Procedures Surgical History Date Name Laterality Status Provider Name and Address Organization Details Recorded Time Bladder Scan completed Rabia Mariaelena [facility] 06/23/2023 15:08:00 Cystoscopy completed Nicola Ware MD [address], [place], [address], [facility] 12/30/2021 17:11:17 Colonoscopy completed Nicola Ware MD [address], [place], [address], [facility] 12/30/2021 17:11:22 Imaging Results Imaging Date Name Status LastModified by Organiz ation Details LastModified Time 07/01/2023 CT, abdomen + pelvis, w/o contrast completed [address] [facility] [address], [place], [address], 09/01/2023 14:40:29 07/18/2023 XR, kidney + ureter + bladder completed [address], [place], [address], 07/22/2023 15:56:19 Procedure Notes None recorded. Medical [...] COLONOSCO PY PREP INSTRUCTI ONS RECEIVED FROM [facility] active Not Available Not Available No t Available furosemide 20 mg tablet TAKE 1 TABLET BY MOUTH DAILY active Not Available Not Available No t Available cefuroxime axetil 500 mg tablet active Not Available Not Available No t Available polyethylen e glycol 3350 17 gram/dose oral powder MIX AND DRINK DIRECTED IN COLONOSCO [employer]Y PRE[employer] IN[employer]I ONS RECEIVED FROM [facility] active Not Available Not Available No [...] Updated DateTime 12/30/2021 177.8 cm 27.4 kg/m2 01699.14 g Nicola Ware MD [address] [place] [address], [address] 12/30/2021 17:10:12 Date Recorded Body height Body mass index (BMI) Body weight Provider Name and Address Organization Details Last Updated DateTime 03/12/2022 177.8 cm 27.4 kg/m2 66890.14 g Rabia Ferrell [facility] 03/12/2022 13:55:47 Social History Question Answer Notes LastModified by Organizat ion Details LastModified Time Tobacco Smoking Status Never Smoker Nicola Ware MD [address] [place] [address],[address], [address], [facility] 12/30/2021 17:11:00 What Is Your Level [...] Diagnosis/Indication Diagnosis SNOMED-CT Code Diagnosis ICD10 Code [id number] Nicola Ware MD [facility] [address] [place] [address] 12/30/2021 16:01:19 01/01/2022 09:36:50 Increased frequency of urination 860476735 R35.0 Malignant tumor of prostate 859892063 C61 Hydronephrosis 86122437 N13.30 [id number] Aliza Landeros [facility] [address] [place] [address] 03/12/2022 13:13:50 03/15/2022 14:00:47 Increased frequency of urination 976999474 R35.0 Malignant tumor of prostate 216741230 C61 Hydronephrosis 49636996 N13.30 [id number] Nicola Ware MD [facility] [address] [place] [address] 06/23/2023 14:16:52 06/24/2023 08:40:38 Blood in urine 85867515 R31.9 Health Concerns Section Related Observation LastModified by Organization Detai ls LastModified Time None Recorded Concern Status LastModified by Organization Details LastModified Time None Recorded Advance Directives Directive None Recorded Payers Encounter Date Sequence Insurance Name Policy Number Policy Krishnan Covered Member ID Krishnan Member ID Guarantor Name 12/30/2021 1 [employer] (MEDICARE REPLACEMENT/ ADVANTAGE - PPO) [id number] José Miguel D Braucher [id number] José Miguel D Braucher 03/12/2022 1 [employer] (MEDICARE REPLACEMENT/ ADVANTAGE - PPO) [id number] José Miguel D Braucher [id number] José Miguel D Braucher 06/23/2023 1 [employer] (MEDICARE REPLACEMENT/ ADVANTAGE - PPO) [id number] José Miguel Srinivasan Braucher [id number] José Miguel D Braucher Notes Date Note Type Note Provider Name and Address Organization Details Recorded Time 12/30/2021 text/html HPI Notes: Excer pt from hospital consultation... 81 y.o. year old male who was admitted to [facility] for gross hematuria & CT findings. Onset [...] of the history. Nicola Ware MD [address], [place], [address], [facility] 12/30/2021 23:07:10 03/12/2022 text/html HPI Notes: Excer pt from hospital consultation... 81 y.o. year old male who was admitted to [facility] for gross hematuria & CT findings. Onset [...] some of the history. Nicola Ware MD [address] [place] [address],[address], [place], [address], [facility] 03/12/2022 17:21:47 06/23/2023 text/html HPI Notes: 83 Y male here after calling triage this AM with hematuria/pain with urination. Patient has stent in place, last exchange 02/08/2022. 06/23/23 visit completed by Curry Ware MD [address] [place] [address],[address], [place], [address], [facility] 06/23/2023 16:19:33
--- OUTSIDE RECORDS SUMMARY | 2024-02-10 09:56 | XMS_ITS | Clinical Summary ---
Author Organization [facility] Address [place], [place] [address] Care Team Providers Care Altitude Chamber Technician Name Role Phone Cesar Mccollum MD Primary Care Provider Nicola Ware MD Unavailable [phone] Mireya Tan MD Unavailable [phone] Allergies No known active allergies Medications Medication Sig Dispensed Refills Start Date End Date Status nitroglycerin (NITROSTAT) 0.4 mg SL tabletIndications: Chest pain on exertion Place 1 tablet under the tongue every 5 minutes if needed for Chest Pain (may take up to 3 tablets SL x 3 q 5 minutes). 1 Bottle 0 Active enzalutamide (XTANDI) 40 mg capsuleIndications :Prostate cancer (HC) Take 120 mg by mouth [...] once daily. Active rivaroxaban (XARELTO) 10 mg tabletIndications: deep vein thrombosis prevention Take 1 Tablet (10 mg) by mouth once daily with evening meal. 0 3 Active calcium carbonate (Calcium 600) 600 mg calcium (1,500 mg) tablet Take 600 mg by mouth two times daily with meals. Active metoprolol succinate (TOPROL XL) 50 mg sustained-release tabletIndications: Hypertension, unspecified type Take 1 Tablet (50 mg) by mouth once daily. 90 Tablet 3 4 Active tamsulosin (FLOMAX) 0.4 mg capsuleIndications :BPH without urinary obstruction Take 1 Capsule (0.4 mg) by mouth once daily after a meal. 90 Capsule 3 4 Active iron, carbonyl (Perfect Iron) 25 mg iron tabIndications:Chr onic blood loss anemia 1 tablet p.o. daily 4 Active acetaminophen (TYLENOL EXTRA STRGTH) 500 mg tabletIndications: Pain Take 2 Tablets (1,000 mg) by mouth 3 times daily if needed for Pain. Max acetaminophen dose: 4000mg in 24 hrs. 4 Active amLODIPine (NORVASC) 10 mg tabletIndications: Benign essential HTN Take 0.5 Tablets (5 mg) by mouth once daily. 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 QSM=300.87 Bladder mass 02/29/2020 04/30/2020 Hematuria 02/29/2020 03/05/2020 Acute deep vein thrombosis (DVT) 02/29/2020 11/20/2020 S/P coronary angioplasty 11/03/2016 Chest pain 09/15/2016 03/05/2020 Elevated prostate specific antigen (PSA) 10/06/2010 03/05/2020 Hip arthritis 10/06/2010 03/05/2020 Colon polyp 07/15/2010 PATRICE (acute kidney injury) Obstructive uropathy 020 Encounters Date Type Department Care Team Description 02/01/[address] [facility] [address] [place] [address] Andre Merlos MD Refill Request (Rosuvastatin) 01/23/2024 1:00 PM CDT Home Care Visit [address] [address] Doreen Hussein, RN SN - OASIS DISCHARGE 01/16/2024 1:30 PM CDT Home Care Visit [address] [address] Doreen Hussein, JAMEL SN - HOME VISIT 01/09/2024 1:30 PM CDT Home Care Visit [address] [address] Doreen Hussein, JAMEL SN - HOME VISIT 12/26/2023 11:30 AM CDT Home Care Visit [address] [address] Doreen Hussein, RN SN - HOME VISIT 12/23/2023 11:00 AM CDT Home Care Visit [address] [address] Raffy Carter, PT PT - DISCIPLINE DISCHARGE 12/19/2023 10:00 AM CDT Home Care Visit [address] [address] Doreen Hussein, RN SN - HOME VISIT 12/16/2023 11:00 AM CDT Home Care Visit [address] [address] Raffy Carter, PT PT - HOME VISIT 12/13/2023 Orders Only [facility] Scanner 1 scan: (1-Ord) [facility], XR SACRUM COCCYX MIN 2V, 12/13/2023 12/07/2023 Telephone [facility] [address] [place] [address] Cesar Mccollum MD Follow Up 12/05/2023 Home Care Visit [address] [address] Doreen Hussein, RN SN - HOME VISIT 12/02/2023 10:30 AM CDT Home Care Visit [address] [address] Raffy Carter, PT PT - REASSESSMENT 12/02/2023 Plan of Care Documentation [address] [address] 11/30/2023 4:00 PM CDT Home Care Visit [address] [address] Doreen Hussein, RN SN - OASIS RECERTIFICATION 11/30/2023 10:30 AM CDT Office Visit [address] [address] Cesar Mccollum MD Follow Up; Medication Management (Discuss plavix - not currently taking it) 11/30/2023 Travel 11/25/2023 11:00 AM CDT Home Care Visit [address] [address] Raffy Carter, PT PT - INITIAL ASSESSMENT 11/23/2023 8:00 AM CDT Home Care Visit [address] [address] Brittanie Prieto RN SN - HOME VISIT 11/21/2023 3:30 PM CDT Home Care Visit [address] [address] Rigo Heart, JAMEL SN - OASIS RESUMPTION OF CARE 11/18/2023 Home Care Visit [address] [address] Rufina Cosby RN CARE COORDINATION 11/14/2023 Home Care Visit [address] [address] Putz, Raffy N, PT PT - OASIS TRANSFER 11/11/2023 10:30 AM CDT [place] [address] Raffy Carter N, PT PT - HOME VISIT from Last 3 Months Immunizations Name Administration Dates Next Due COVID-19 VACCINE SPIKEVAX (M ODERNA 50MCG/0.5ML) 12YO+ PFS 07/21/2023,03/08/2023 COVID-19 vaccine (ExecMobileBio NTech 30mcg/0.3mL) 12YO+ BIVALENT PF, MDV 09/13/2022,01/28/2022 COVID-19 vaccine (Pfizer-Bio NTech 30mcg/0.3mL) 12YO+ DAYRON-SUCROSE PF, MDV 08/26/2021 COVID-19 vaccine (ExecMobileBio NTech 30mcg/0.3mL) PF, MDV 01/13/2021,06/17/2020,2020 Influenza, Inactivated [...] 0 07/21/2023 Social Connections Answer Date Recorded Do you often feel lonely or isolated from those around you? 0 03/29/2023 Financial Resource Strain Answer Date R ecorded Difficulty of Paying Living Expenses 3 02/16/2022 Difficulty of Paying Living Expenses Not on file 02/16/2022 Food Insecurity Answer Date Recorded Do you worry your food will run out before you are able to buy more? 1 03/29/2023 Transportation Needs Answer Date Record ed Does lack of transportation keep you from medica l appointments? 1 03/29/2023 Does lack of transportation keep you from work, meetings or getting things that you need? 1 03/29/2023 Housing Stability Answer Date Recorded What is your housing situation today? 1 03/29/2023 Sex and Gender Information Value Date Recorded [...] Completed 4 Medical Devices Implanted Type Area Tool And Fixture Repairer Device Identifier Shelf Expiration Date Model / Serial / Lot Stent Uret [id number] Contour - [id number] Implanted:Qty: 1 on 07/18/2023 by Nicola Ware MD at [facility] Right: Ureter [facility] 02/27/2026 [id number] / / [id number] Procedures Procedure Name Priority Date/Time Associated Diagnosis Comments SCAN-RADIOLOGY REPORT 12/13/2023 12:00 AM CDT HEMOGLOBIN Routine 11/30/2023 11:45 AM CDT Chronic blood loss anemia from Last 3 Months Results * SCAN-RADIOLOGY REPORT (12/13/2023 12:00 AM CDT) Anatomical Region Laterality Modality Other Scanner OTHER * (ABNORMAL) HEMOGLOBIN (11/30/2023 11:45 AM CDT) HEMOGLOBIN 10.4(L) 13.5 - 17.5 g/dL 11/30/2023 11:50 AM CDT [facility] MCV 92 80 - 100 fL 11/30/2023 11:50 AM CDT [facility] Blood BLOOD SPECIMEN / Unknown Venipuncture / Unknown 11/30/2023 11:45 AM CDT 11/30/2023 11:45 AM CDT Cesar Mccollum MD HEMATOLOGY [facility] [address] [place] [address], [place] [phone] from Last 3 Months Advance Directives Documents on File Type Date Recorded 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
--- OUTSIDE RECORDS SUMMARY | 2024-02-10 09:56 | XMS_ITS | Encounter Summary ---
Author Organization [facility] Address [address] [place] [address] Care Team Providers Care Fast Food Assistant Restaurant Manager Name Role Phone Elsewhere, Pcp Primary Care Provider Unavailabl e Encounter Details Date Type Department Care Team (Late st Contact Info) Description 11/14/2023 Documentation Department of Urology in [place], [place] [address] [place] [address] Sowmya Aviles, ARUN, C.N.P., M.S.N. [address] [place] [phone] Social History Tobacco Use Types Packs/Day Years Used Date Smoking Tobacco: Never Smokeless Tobacco: Never [facility] Utilities Answer Date Recorded [...] - 11/14/2023 3:31 PM CDT Contacted via [facility] regarding this patient. Not personally seen or evaluated as patient is in the [facility] Emergency Department. Kalen Vega is a 83 y.o. male with medical comorbidities of acute DVT on Plavix, coronary artery disease status post stent, degenerative joint disease, hyperlipidemia, lymphedema, prediabetes. 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 Tan in [place], [place]. Right hydronephrosis and right atrophic kidney [...] was readmitted to hospital. He presented to [facility] Emergency Department today for evaluation of hematuria and no drainage into urinary catheter. He reports leakage around the catheter of urine and blood clots. A 22 Bahamian three-way catheter was placed, patient was hand [...] st Contact Info) Description 02/13/2024 11:45 AM QUALITY ASSURANCE GROUP LEADER Nurse Only Department of Urology in [place], [place] [address] [place] [address] Burke Strauss M.D. [address] [place] [address] Discharge Disposition: Home or Self Care 02/16/2024 11:00 AM QUALITY ASSURANCE GROUP LEADER Office Visit Department of Urology in [place], [place] [address] [place] [address] Burke Strauss M.D. [address] [place] [address] documented as of this encounter Visit Diagnoses Not on filedocumented in this encounter Care Teams Fast Food Assistant Restaurant Manager Relationship Specialty Start Date End Date Elsewhere, Pcp PCP - General Internal Medicine 08/13/23 documented as of this encounter
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
== END 2024-02-10 09:51 | disposition home or self-care (01) ==
LOC: WOUND 09:51
PROVIDERS: PCP Family Medicine; Visit Provider Nurse Practitioner Family
DX: N30.41 Irradiation cystitis with hematuria (principal); K62.7 Radiation proctitis; C61 Malignant neoplasm of prostate; Z79.01 Long term (current) use of anticoagulants; Y84.2 Radiological procedure and radiotherapy as the cause of abnormal reaction of the patient, or of later complication, without mention of misadventure at the time of the procedure
CPT/HCPCS: G0463

== ENCOUNTER 2024-05-21 10:45 | Outpatient (RCR) | payer MEDICARE, OTHER, SELFPAY ==
[2023-12-28 09:44] LABS: Eosinophils Absolute Auto 0.21 K/uL (0.00-0.50); Eosinophils Percent Auto 3.2 % (0.0-7.0); Hematocrit 33.5 % (37.0-53.0); Hemoglobin* 9.8 gm/dL (13.5-17.5); Immature Granulocytes Abs Auto 0.01 K/uL (0.00-0.30); Immature Granulocytes Pct Auto 0.2 %; Lymphocytes Percent Auto 5.9 % (20-44); Mean Corpuscular HGB Conc 29 gm/dL (32-36); Mean Corpuscular Hemoglobin 28 pg (26-34); Mean Corpuscular Volume 94 fL (80-100); Monocytes Percent Auto 7.1 % (0.0-11.0); Neutrophils Percent Auto 83.6 % (42.0-72.0); Platelet Count* 263 K/uL (140-440); RDW Coefficient of Variation % 17.1 % (11.5-15.5); Red Blood Count 3.57 m/uL (4.30-5.90); White Blood Count* 6.66 K/uL (4.50-11.00)
[2023-12-28 09:48] LABS: Slide Review Reflex No
[2023-12-28 10:02] LABS: Albumin* 3.9 g/dL (3.3-5.0); Chloride* 107 mmol/L (96-114); Sodium* 138 mmol/L (135-149)
[2023-12-28 10:03] LABS: Potassium* 4.7 mmol/L (3.6-5.1)
[2023-12-28 10:05] LABS: Alkaline Phosphatase* 65 U/L (40-150); Anion Gap 8 mEq/L (7-15); Aspartate Amino Transferase* 18 U/L (12-35); Bilirubin Total* 0.5 mg/dL (0.1-1.5); Blood Urea Nitrogen* 19 mg/dL (7-30); Carbon Dioxide* 23 mmol/L (20-32); Creatinine* 1.1 mg/dL (0.5-1.5); Estimated Glomerular Filt Rate 66 ml/min; Total Protein* 7.1 g/dL (6.0-8.3)
[2023-12-28 10:06] LABS: Alanine Aminotransferase* 10 U/L (4-50); Calcium* 9.3 mg/dL (8.4-10.6); Glucose* 142 mg/dL (60-115)
[2023-12-28 10:39] LABS: PSA Diagnostic* < 0.06 ng/mL (0.10-4.00)
[2023-12-30] MEDS: DENOSUMAB 120 MG inj SUBCUT (12:02)
[2023-12-30] MEDS: LEUPROLIDE ACETATE 22.5 MG (SQ) SYRINGE SUBCUT (12:16)
[2024-01-25 10:00] LABS: Eosinophils Absolute Auto 0.17 K/uL (0.00-0.50); Eosinophils Percent Auto 2.2 % (0.0-7.0); Hematocrit 34.3 % (37.0-53.0); Hemoglobin* 10.1 gm/dL (13.5-17.5); Immature Granulocytes Abs Auto 0.02 K/uL (0.00-0.30); Immature Granulocytes Pct Auto 0.3 %; Lymphocytes Percent Auto 8.2 % (20-44); Mean Corpuscular HGB Conc 29 gm/dL (32-36); Mean Corpuscular Hemoglobin 27 pg (26-34); Mean Corpuscular Volume 92 fL (80-100); Monocytes Percent Auto 5.9 % (0.0-11.0); Neutrophils Percent Auto 83.4 % (42.0-72.0); Platelet Count* 357 K/uL (140-440); RDW Coefficient of Variation % 17.2 % (11.5-15.5); Red Blood Count 3.73 m/uL (4.30-5.90); White Blood Count* 7.59 K/uL (4.50-11.00)
[2024-01-25 10:07] LABS: Slide Review Reflex No
--- NOTE | 2024-01-25 15:14 | ONC.NURNOTE ---
lab results called to patient as stable Kalen denies any concerns with Xtandi discussed re- enrollment for next year with [employer]- if there are no eligibility changes with [employer]- patient should qualify for free drug from [employer] again
[2024-02-22 09:47] LABS: Basophils Absolute Auto 0.01 K/uL (0.00-0.30); Basophils Percent Auto 0.1 % (0.0-3.0); Eosinophils Absolute Auto 0.23 K/uL (0.00-0.50); Eosinophils Percent Auto 2.8 % (0.0-7.0); Hematocrit 40.7 % (37.0-53.0); Hemoglobin* 12.4 gm/dL (13.5-17.5); Mean Corpuscular HGB Conc 31 gm/dL (32-36); Mean Corpuscular Hemoglobin 28 pg (26-34); Mean Corpuscular Volume 90 fL (80-100); Monocytes Percent Auto 7.7 % (0.0-11.0); Neutrophils Percent Auto 81.4 % (42.0-72.0); Platelet Count* 301 K/uL (140-440); RDW Coefficient of Variation % 18.6 % (11.5-15.5); Red Blood Count 4.51 m/uL (4.30-5.90)
[2024-02-22 09:48] LABS: Slide Review Reflex No
--- NOTE | 2024-02-22 10:01 | ONC.NURNOTE ---
CBC today Hg 12.4 reviewed results with patient and son patient states no concerns with xtandi since catheter removed, experiencing urinary incontinence 60 hyperbaric treatments completed in the wound clinic
--- NOTE | 2024-02-23 08:47 | ONC.NURNOTE ---
Re-enrolled in the [facility] Patient Assist 04/11/24-04/10/25 patient notified
[2024-03-29 12:12] LABS: Basophils Absolute Auto 0.01 K/uL (0.00-0.30); Basophils Percent Auto 0.2 % (0.0-3.0); Eosinophils Absolute Auto 0.19 K/uL (0.00-0.50); Eosinophils Percent Auto 3.3 % (0.0-7.0); Hematocrit 38.8 % (37.0-53.0); Immature Granulocytes Abs Auto 0.01 K/uL (0.00-0.30); Immature Granulocytes Pct Auto 0.2 %; Lymphocytes Percent Auto 9.7 % (20-44); Mean Corpuscular HGB Conc 31 gm/dL (32-36); Mean Corpuscular Hemoglobin 28 pg (26-34); Mean Corpuscular Volume 91 fL (80-100); Monocytes Percent Auto 10.2 % (0.0-11.0); Neutrophils Percent Auto 76.4 % (42.0-72.0); Platelet Count* 258 K/uL (140-440); RDW Coefficient of Variation % 17.6 % (11.5-15.5); Red Blood Count 4.26 m/uL (4.30-5.90); White Blood Count* 5.76 K/uL (4.50-11.00)
[2024-03-29 12:15] LABS: Slide Review Reflex No
[2024-03-29 12:30] LABS: Albumin* 4.1 g/dL (3.3-5.0); Chloride* 107 mmol/L (96-114); Potassium* 4.9 mmol/L (3.6-5.1); Sodium* 139 mmol/L (135-149)
[2024-03-29 12:32] LABS: Anion Gap 5 mEq/L (7-15); Bilirubin Total* 0.7 mg/dL (0.1-1.5); Carbon Dioxide* 27 mmol/L (20-32); Creatinine* 1.2 mg/dL (0.5-1.5); Est. Creatinine Clearance* 45.82; Estimated Glomerular Filt Rate 60 ml/min
[2024-03-29 12:33] LABS: Alanine Aminotransferase* 13 U/L (4-50); Alkaline Phosphatase* 54 U/L (40-150); Aspartate Amino Transferase* 18 U/L (12-35); Blood Urea Nitrogen* 26 mg/dL (7-30); Calcium* 9.4 mg/dL (8.4-10.6); Glucose* 102 mg/dL (60-115); Total Protein* 7.3 g/dL (6.0-8.3)
[2024-03-29 13:08] LABS: PSA Diagnostic* < 0.06 ng/mL (0.10-4.00)
[2024-03-29] MEDS: DENOSUMAB 120 MG inj SUBCUT (14:58)
[2024-03-29] MEDS: LEUPROLIDE ACETATE 22.5 MG (SQ) SYRINGE SUBCUT (14:59)
[2024-04-23 10:56] LABS: Eosinophils Absolute Auto 0.32 K/uL (0.00-0.50); Eosinophils Percent Auto 4.7 % (0.0-7.0); Hematocrit 39.4 % (37.0-53.0); Hemoglobin* 12.5 gm/dL (13.5-17.5); Immature Granulocytes Abs Auto 0.01 K/uL (0.00-0.30); Immature Granulocytes Pct Auto 0.1 %; Lymphocytes Percent Auto 7.7 % (20-44); Mean Corpuscular HGB Conc 32 gm/dL (32-36); Mean Corpuscular Hemoglobin 28 pg (26-34); Mean Corpuscular Volume 90 fL (80-100); Monocytes Percent Auto 6.3 % (0.0-11.0); Neutrophils Percent Auto 81.2 % (42.0-72.0); Platelet Count* 287 K/uL (140-440); White Blood Count* 6.84 K/uL (4.50-11.00)
[2024-04-23 11:08] LABS: Slide Review Reflex No
--- NOTE | 2024-04-24 10:59 | ONC.NURNOTE ---
lab results reviewed and called to patient as stable continues on xtandi 3 X 40mg/d next appts reviewed
[2024-05-21 11:07] LABS: Basophils Absolute Auto 0.01 K/uL (0.00-0.30); Basophils Percent Auto 0.2 % (0.0-3.0); Eosinophils Absolute Auto 0.28 K/uL (0.00-0.50); Eosinophils Percent Auto 4.5 % (0.0-7.0); Hematocrit 39.7 % (37.0-53.0); Hemoglobin* 12.6 gm/dL (13.5-17.5); Immature Granulocytes Abs Auto 0.01 K/uL (0.00-0.30); Immature Granulocytes Pct Auto 0.2 %; Lymphocytes Percent Auto 7.5 % (20-44); Mean Corpuscular HGB Conc 32 gm/dL (32-36); Mean Corpuscular Hemoglobin 29 pg (26-34); Mean Corpuscular Volume 92 fL (80-100); Monocytes Percent Auto 5.8 % (0.0-11.0); Neutrophils Percent Auto 81.8 % (42.0-72.0); Platelet Count* 275 K/uL (140-440); RDW Coefficient of Variation % 15.5 % (11.5-15.5); Red Blood Count 4.34 m/uL (4.30-5.90); White Blood Count* 6.25 K/uL (4.50-11.00)
[2024-05-21 11:08] LABS: Slide Review Reflex No
--- NOTE | 2024-05-21 11:17 | ONC.NURNOTE ---
labs reviewed with José Miguel and his son as stable
== END 2024-06-25 23:59 | disposition home or self-care (01) ==
LOC: CCIC 10:45
PROVIDERS: Physician Assistant; Absent Provider Clinical Nurse Specialist; PCP Family Medicine; Referring Provider Family Medicine; Visit Provider Internal Medicine Hematology & Oncology
DX: C61 Malignant neoplasm of prostate (principal); C79.51 Secondary malignant neoplasm of bone
CPT/HCPCS: 15271; 36415; 80053; 84153; 85025; 96372; 96401; 96402; 99214; 99215; G0277; G0463; Q4110; J0897; J9217

== ENCOUNTER 2025-01-01 12:15 | Outpatient (RCR) | payer MEDICARE, OTHER, SELFPAY ==
[2024-07-05 10:44] LABS: Hematocrit* 40.9 % (37.0-53.0); Hemoglobin* 12.9 gm/dL (13.5-17.5); Immature Granulocytes Abs Auto 0.02 K/uL (0.00-0.30); Immature Granulocytes Pct Auto 0.3 %; Mean Corpuscular HGB Conc 32 gm/dL (32-36); Mean Corpuscular Hemoglobin 29 pg (26-34); Mean Corpuscular Volume 92 fL (80-100); RDW Coefficient of Variation % 14.8 % (11.5-15.5); Red Blood Count* 4.44 m/uL (4.30-5.90); White Blood Count* 6.79 K/uL (4.50-11.00)
[2024-07-05 10:46] LABS: Lymphocytes Absolute Auto 0.50 K/uL (0.90-2.90); Slide Review Reflex No
[2024-07-05 10:53] LABS: Albumin* 4.3 g/dL (3.3-5.0); Chloride* 106 mmol/L (96-114); Potassium* 4.5 mmol/L (3.6-5.1); Sodium* 141 mmol/L (135-149)
[2024-07-05 10:56] LABS: Alanine Aminotransferase* 21 U/L (4-50); Alkaline Phosphatase* 64 U/L (40-150); Anion Gap 10 mEq/L (7-15); Aspartate Amino Transferase* 27 U/L (12-35); Bilirubin Total* 0.7 mg/dL (0.1-1.5); Blood Urea Nitrogen* 22 mg/dL (7-30); Carbon Dioxide* 25 mmol/L (20-32); Creatinine* 1.1 mg/dL (0.5-1.5); Estimated Glomerular Filt Rate 66 ml/min; Total Protein* 7.7 g/dL (6.0-8.3)
[2024-07-05 10:57] LABS: Calcium* 9.2 mg/dL (8.4-10.6); Glucose* 119 mg/dL (60-115)
[2024-07-05 12:13] LABS: PSA Diagnostic* < 0.06 ng/mL (0.10-4.00)
[2024-07-05] MEDS: LEUPROLIDE ACETATE (ELIGARD) 22.5 MG INJ SUBCUT (12:53)
[2024-07-05] MEDS: DENOSUMAB 120 MG inj SUBCUT (12:55)
[2024-08-16 11:20] LABS: Hematocrit* 39.3 % (37.0-53.0); Hemoglobin* 12.3 gm/dL (13.5-17.5); Immature Granulocytes Abs Auto 0.02 K/uL (0.00-0.30); Immature Granulocytes Pct Auto 0.3 %; Mean Corpuscular HGB Conc 31 gm/dL (32-36); Mean Corpuscular Hemoglobin 29 pg (26-34); Mean Corpuscular Volume 93 fL (80-100); RDW Coefficient of Variation % 15.2 % (11.5-15.5); Red Blood Count* 4.24 m/uL (4.30-5.90); White Blood Count* 7.72 K/uL (4.50-11.00)
[2024-08-16 11:21] LABS: Lymphocytes Absolute Auto 0.70 K/uL (0.90-2.90); Slide Review Reflex No
[2024-09-28 13:31] LABS: Hematocrit* 38.8 % (37.0-53.0); Hemoglobin* 12.2 gm/dL (13.5-17.5); Immature Granulocytes Abs Auto 0.03 K/uL (0.00-0.30); Immature Granulocytes Pct Auto 0.4 %; Mean Corpuscular HGB Conc 31 gm/dL (32-36); Mean Corpuscular Hemoglobin 29 pg (26-34); Mean Corpuscular Volume 92 fL (80-100); RDW Coefficient of Variation % 15.3 % (11.5-15.5); Red Blood Count* 4.21 m/uL (4.30-5.90); White Blood Count* 8.10 K/uL (4.50-11.00)
[2024-09-28 13:34] LABS: Lymphocytes Absolute Auto 0.90 K/uL (0.90-2.90); Slide Review Reflex No
[2024-09-28 13:39] LABS: Albumin* 4.2 g/dL (3.3-5.0); Chloride* 106 mmol/L (96-114)
[2024-09-28 13:40] LABS: Potassium* 4.8 mmol/L (3.6-5.1); Sodium* 138 mmol/L (135-149)
[2024-09-28 13:42] LABS: Alanine Aminotransferase* 18 U/L (4-50); Anion Gap 6 mEq/L (7-15); Aspartate Amino Transferase* 26 U/L (12-35); Blood Urea Nitrogen* 27 mg/dL (7-30); Carbon Dioxide* 26 mmol/L (20-32); Creatinine* 1.4 mg/dL (0.5-1.5); Estimated Glomerular Filt Rate 49 ml/min
[2024-09-28 13:43] LABS: Alkaline Phosphatase* 63 U/L (40-150); Bilirubin Total* 0.7 mg/dL (0.1-1.5); Calcium* 9.9 mg/dL (8.4-10.6); Glucose* 94 mg/dL (60-115); Total Protein* 7.5 g/dL (6.0-8.3)
[2024-09-28 13:51] LABS: Iron* 61 ug/dL (49-181)
[2024-09-28 14:00] LABS: Percent Iron Saturation 18 % (20-50); Total Iron Binding Capacity 349 ug/dL (261-462)
[2024-09-28 14:18] LABS: PSA Diagnostic* < 0.06 ng/mL (0.10-4.00)
[2024-10-01] MEDS: DENOSUMAB 120 MG inj SUBCUT (11:09)
[2024-10-01] MEDS: LEUPROLIDE ACETATE (ELIGARD) 22.5 MG INJ SUBCUT (11:26)
[2024-10-23 10:02] LABS: Hematocrit* 38.0 % (37.0-53.0); Hemoglobin* 12.1 gm/dL (13.5-17.5); Immature Granulocytes Abs Auto 0.02 K/uL (0.00-0.30); Immature Granulocytes Pct Auto 0.3 %; Mean Corpuscular HGB Conc 32 gm/dL (32-36); Mean Corpuscular Hemoglobin 29 pg (26-34); Mean Corpuscular Volume 92 fL (80-100); RDW Coefficient of Variation % 15.3 % (11.5-15.5); Red Blood Count* 4.14 m/uL (4.30-5.90); White Blood Count* 6.26 K/uL (4.50-11.00)
[2024-10-23 10:08] LABS: Lymphocytes Absolute Auto 0.70 K/uL (0.90-2.90); Slide Review Reflex No
--- NOTE | 2024-11-26 09:51 | ONC.NURNOTE ---
Addendum entered by Brittany Acosta RN 11/26/24 10:48: CBC results called to José Miguel- WBC and ANC within the normal range and Hg improved for José Miguel Original Note: Here for monthly CBC patient with the following concerns: -on going fatigue- if it is related to his Xtandi- patient questioning reducing dose of Xtandi -sediment noted in nephrostomy tube- sometimes interfering with drainage, and urine gets backed up and leaking out of bladder Discussion with Radha BENTON -decrease Xtandi to 80 mg/day X 1 mth- to discuss with Britney next month if this has improved his fatigue- he will also be due for a PSA at that time -Call [facility] - to report current issues with nephrostomy -No UA/C&S at this time, unless requested by urology -Continue to push fluids Patient and son in agreement with this plan
[2024-11-26 10:06] LABS: Hematocrit* 40.2 % (37.0-53.0); Hemoglobin* 12.9 gm/dL (13.5-17.5); Immature Granulocytes Abs Auto 0.01 K/uL (0.00-0.30); Immature Granulocytes Pct Auto 0.1 %; Mean Corpuscular HGB Conc 32 gm/dL (32-36); Mean Corpuscular Hemoglobin 29 pg (26-34); Mean Corpuscular Volume 89 fL (80-100); RDW Coefficient of Variation % 15.0 % (11.5-15.5); Red Blood Count* 4.50 m/uL (4.30-5.90); White Blood Count* 7.29 K/uL (4.50-11.00)
[2024-11-26 10:25] LABS: Lymphocytes Absolute Auto 0.80 K/uL (0.90-2.90); Slide Review Reflex No
--- NOTE | 2024-12-13 11:39 | ONC.NURNOTE ---
RN covering for Brittany, RN NN today. Reviewed pt's [place] chart and it was noted that he has NOT seen urology at [place]. Contacted Kal[facility] and he confirmed that he has not seen urology nor does he have any scheduled appointments. Will follow-up with Brittany next week regarding her understanding of needed urology follow-up. Pt would appreciate an update as well as he was not aware of the need for any urology appointments.
[2024-12-27 11:37] LABS: Hematocrit* 38.7 % (37.0-53.0); Hemoglobin* 12.5 gm/dL (13.5-17.5); Immature Granulocytes Abs Auto 0.03 K/uL (0.00-0.30); Immature Granulocytes Pct Auto 0.5 %; Lymphocytes Absolute Auto 0.60 K/uL (0.90-2.90); Mean Corpuscular HGB Conc 32 gm/dL (32-36); Mean Corpuscular Hemoglobin 29 pg (26-34); Mean Corpuscular Volume 90 fL (80-100); RDW Coefficient of Variation % 15.3 % (11.5-15.5); Red Blood Count* 4.28 m/uL (4.30-5.90); Slide Review Reflex No; White Blood Count* 6.50 K/uL (4.50-11.00)
[2024-12-27 12:07] LABS: Albumin* 3.9 g/dL (3.3-5.0); Chloride* 106 mmol/L (96-114); Potassium* 4.4 mmol/L (3.6-5.1); Sodium* 139 mmol/L (135-149)
[2024-12-27 12:09] LABS: Blood Urea Nitrogen* 19 mg/dL (7-30); Creatinine* 1.3 mg/dL (0.5-1.5); Est. Creatinine Clearance* 41.54; Estimated Glomerular Filt Rate 54 ml/min
[2024-12-27 12:10] LABS: Alanine Aminotransferase* 15 U/L (4-50); Alkaline Phosphatase* 66 U/L (40-150); Anion Gap 6 mEq/L (7-15); Aspartate Amino Transferase* 23 U/L (12-35); Bilirubin Total* 0.6 mg/dL (0.1-1.5); Calcium* 9.4 mg/dL (8.4-10.6); Carbon Dioxide* 27 mmol/L (20-32); Glucose* 69 mg/dL (60-115); Total Protein* 7.4 g/dL (6.0-8.3)
[2024-12-27 12:44] LABS: PSA Diagnostic* < 0.06 ng/mL (0.10-4.00)
[2025-01-01] MEDS: DENOSUMAB 120 MG inj SUBCUT (12:39)
[2025-01-01] MEDS: LEUPROLIDE ACETATE (ELIGARD) 22.5 MG INJ SUBCUT (12:39)
== END 2025-01-01 23:59 | disposition home or self-care (01) ==
LOC: CCIC 12:15
PROVIDERS: Internal Medicine Hematology & Oncology; Physician Assistant; Absent Provider Clinical Nurse Specialist; PCP Family Medicine; Referring Provider Family Medicine; Visit Provider Clinical Nurse Specialist
DX: C61 Malignant neoplasm of prostate (principal); C79.51 Secondary malignant neoplasm of bone; R53.83 Other fatigue; Z79.818 Long term (current) use of other agents affecting estrogen receptors and estrogen levels; Z86.718 Personal history of other venous thrombosis and embolism
CPT/HCPCS: 36415; 80053; 82728; 83540; 83550; 84153; 85025; 96372; 96402; 99214; 99215; G0463; J0897; J9217